=== PATIENT | female | born 1980 | race Caucasian/White ===

== ENCOUNTER 2023-03-31 02:03 | Emergency (ER) | payer MEDICARE, MEDICAID, SELFPAY ==
[2023-03-31 02:21] VITALS: BP 103/71; PULSE 127; RESP 18; TEMP 37.5; O2SAT 93; BMI 27.0
--- NOTE | 2023-03-31 02:23 | ED_ITS ---
HPI - General Adult General Chief complaint: Headache Stated complaint: sob covid Time Seen by Provider: 03/31/23 02:18 History of Present Illness HPI narrative: past history of Hodgkins. She tested positive for COVID19 2-3 days ago. Associated with fever and headache. Started on Molnupiravir yesterday. Tonight wheezy . No headache at this time but does comes and go and has pressure behind her eyes. No abdominal pain Related Data Home Medications Medication Instructions Recorded Confirmed azelastine 137 mcg (0.1 %) nasal intranasal 03/31/23 spray aerosol fluticasone furoate 100 inhalation 03/31/23 mcg-vilanterol 25 mcg/dose inhalation powder (Breo Ellipta) ipratropium 0.5 mg-albuterol 3 mg ml inhalation 03/31/23 (2.5 mg base)/3 mL nebulization soln molnupiravir 200 mg capsule (EUA) mg PO 03/31/23 (Lagevrio) Allergies Allergy/AdvReac Type Severity Reaction Status Date / Time Sulfa (Sulfonamide AdvReac Mild Rash Verified 03/31/23 02:19 Antibiotics) Review of Systems ROS Status of ROS 10 or more systems reviewed and unremark able except as noted in history and below PFSH PFS Social History Smoking status: Never smoker Exam Constitutional Vital Signs, click to edit/add: Last Vital Signs Temp 99.5 F 03/31/23 02:21 Pulse 120 H 03/31/23 02:54 Resp 20 03/31/23 02:54 BP 103/71 03/31/23 02:21 Pulse Ox 93 L 03/31/23 02:54 O2 Del Method Room Air 03/31/23 02:54 Common normals: no apparent distress, average body habitus, oriented x3, no limitations, healthy appearing, alert and well nourished Eye Common normals: EOMs intact bilaterally and conjunctivae normal Respiratory Common normals: no retractions and no use of accessory muscles Other: mild wheeze Cardio Common normals: regular rate, regular rhythm, S1 normal heart sound and S2 normal heart sound GI Common normals: Normal to inspection, nondistended, normoactive bowel sounds present, soft to palpation and non-tender Extremity Common normals: normal to inspection and full ROM Neuro Common normals: oriented x3, CN's II-XII intact bilaterally, moves all extremities and no focal motor deficits Psych Appearance: grossly normal Course Vital Signs Vital signs: Vital Signs Temperature 99.5 F 03/31/23 02:21 Pulse Rate 127 H 03/31/23 02:21 Respiratory Rate 18 03/31/23 02:21 Blood Pressure 103/71 03/31/23 02:21 Pulse Oximetry 93 L 03/31/23 02:21 Oxygen Delivery Method Room Air 03/31/23 02:21 Temperature 99.5 F 03/31/23 02:21 Pulse Rate 120 H 03/31/23 02:54 Respiratory Rate 20 03/31/23 02:54 Blood Pressure 103/71 03/31/23 02:21 Pulse Oximetry 93 L 03/31/23 02:54 Oxygen Delivery Method Room Air 03/31/23 02:54 Medical Decision Making MDM Narrative Medical decision making narrative: patient presents with a viral illness presentation of cough, bronchospasm and headache. States home test was positive for COVID19 and she was started on antiviral by her PCP. she points to the area anterior to her left ear as the site of her pain. Describes acute sharp pain that comes and goes. Site is non tender. No temporal artery tenderness. covid19 and influenza testing neg in the department. CT brain and sinus/face neg. Inflammatory markers elevated and she had mild wheezing on admission that resolved after solumedrol and albuterol inhaler. Magnesium given and the headache was more tolerable. She was also given dose of Tegretol prior to discharge. Cxray with mild cardiomegaly. no infiltrates.Troponin and BNP neg. D- dimer also neg. discharged home with a prescription for Tegretol and an albuterol inhaler and advised to d/c her antiviral and follow up with her doctor Lab Data Labs: Lab Results 03/31/23 03/31/23 Range/Units 02:34 03:10 WBC 8.8 (4.0-11.0) 10^3/uL RBC 4.88 (4.20-5.40) 10^6/uL Hgb 15.5 (12.0-16.0) g/dL Hct 45.9 (36.0-48.0) % MCV 94.1 (81.0-99.0) fL MCH 31.8 (26.7-34.0) pg MCHC 33.8 (29.9-35.2) g/dL RDW 13.1 (11.0-15.0) % Plt Count 241 (150-450) 10^3/uL MPV 9.1 L (9.5-13.5) fL Neut % (Auto) 73.5 (43.0-75.0) % Lymph % (Auto) 12.8 L (20.5-60.0) % Murray % (Auto) 12.7 H (1.7-12.0) % Eos % (Auto) 0.5 L (0.9-7.0) % Baso % (Auto) 0.3 (0.2-2.0) % Neut # (Auto) 6.5 (1.4-6.5) 10^3/uL Lymph # (Auto) 1.1 L (1.2-3.8) 10^3/uL Murray # (Auto) 1.1 H (0.3-0.8) 10^3/uL Eos # (Auto) 0.0 (0.0-0.7) 10^3/uL Baso # (Auto) 0.0 (0.0-0.1) 10^3/uL Abs Immat Gran (auto) 0.02 (0.00-0.03) 10^3/uL Imm/Tot Granulo (auto) 0.2 (0.0-0.5) % ESR 33 H (<=20) mm/hr D-Dimer 0.24 (<=0.59) mg/L FEU Lactate 1.1 (0.4-2.0) mmol/L Troponin I High Sens 12.8 (4.0-51.3) pg/mL C-Reactive Protein 2.89 H (<=0.50) mg/dL NT-Pro-B Natriuret Pep 215.0 (<=450.0) pg/mL Influenza Type A Ag Negative Influenza Type B Ag Negative SARS-CoV-2 Ag (CV2AG) Negative (NEGATIVE) Discharge Plan Discharge Chief Complaint: Headache Clinical Impression: Acute viral syndrome, [place] (trigeminal neuralgia) Patient Disposition: Home, Self-Care Prescriptions / Home Meds: No Action azelastine 137 mcg (0.1 %) aerosol,spray INTRANASAL Lagevrio (EUA) 200 mg capsule PO ipratropium-albuterol 0.5 mg-3 mg(2.5 mg base)/3 mL solution for nebulization INHALATION fluticasone furoate-vilanterol [Breo Ellipta] 100-25 mcg/dose blister with device INHALATION Instructions: Trigeminal Neuralgia (ED), Viral Syndrome (ED) Additional Instructions: follow up with your doctor in 2-3 days for recheck Stand Alone Forms: Portal Instructions Referrals: Physician,Non-Staff, MD [Primary Care Provider] - 1 week
--- NOTE | 2023-03-31 02:25 | XR_ITS ---
The [address] [address] Patient Name: CELSO POTTS MRN: [id number] date: 1980 Sex: F Assigned Patient Location: ER Current Patient Location: ER Accession/Order Number: [id number] Exam Date: 03/31/2023 02:45 Report Date: 03/31/2023 03:58 At the request of: IGLESIA BLAKELY Procedure: XR chest 1V CLINICAL HISTORY: Short of breath COMPARISON: None FINDINGS: Portable AP view of the chest obtained. Cardiomediastinal silhouette is enlarged. Lungs are clear, no evidence of infiltrate, suspicious nodule, or mass. No evidence of significant pleural fluid on this portable projection. No acute bony abnormality. XR/XR chest 1V IMPRESSION: Cardiomegaly noted. Lungs are clear. Electronically authenticated by: RADHA SWEET Date: 03/31/2023 03:58
--- NOTE | 2023-03-31 02:27 | CT_ITS ---
The [address] [address] Patient Name: CELSO POTTS MRN: [id number] date: 1980 Sex: F Assigned Patient Location: ER Current Patient Location: ER Accession/Order Number: [id number] Exam Date: 03/31/2023 02:45 Report Date: 03/31/2023 03:57 At the request of: IGLESIA BLAKELY Procedure: CT head/brain wo con NONCONTRAST HEAD/FACIAL BONE CT COMPARISON: Head CT 06/21/2022. CLINICAL HISTORY: Headache and sinus pressure. TECHNIQUE: Routine noncontrast images of the brain obtained. CT examination of the head without IV contrast. Dose reduction techniques were achieved by using: automated exposure control and/or adjustment of mA and /or kV according to patient size and/or use of iterative reconstruction technique. FINDINGS: Paranasal sinuses and mastoid air cells are clear. Small mucous retention cyst or polyp incidentally noted in the left maxillary sinus. Intraorbital contents are unremarkable. No acute bony abnormality. Mandible and temporomandibular joints are properly aligned. Intracranially, there is no evidence of hemorrhage, mass effect, or midline shift. Ventricles and cisternal spaces are age appropriate. CT/CT head/brain wo con IMPRESSION: No acute intracranial abnormality. Sinuses are clear. Electronically authenticated by: RADHA SWEET Date: 03/31/2023 03:57
--- NOTE | 2023-03-31 02:27 | CT_ITS ---
The [address] [address] Patient Name: CELSO POTTS MRN: [id number] date: 1980 Sex: F Assigned Patient Location: ER Current Patient Location: ER Accession/Order Number: [id number] Exam Date: 03/31/2023 02:45 Report Date: 03/31/2023 03:57 At the request of: IGLESIA BLAKELY Procedure: CT facial bones wo con NONCONTRAST HEAD/FACIAL BONE CT COMPARISON: Head CT 06/21/2022. CLINICAL HISTORY: Headache and sinus pressure. TECHNIQUE: Routine noncontrast images of the brain obtained. CT examination of the head without IV contrast. Dose reduction techniques were achieved by using: automated exposure control and/or adjustment of mA and /or kV according to patient size and/or use of iterative reconstruction technique. FINDINGS: Paranasal sinuses and mastoid air cells are clear. Small mucous retention cyst or polyp incidentally noted in the left maxillary sinus. Intraorbital contents are unremarkable. No acute bony abnormality. Mandible and temporomandibular joints are properly aligned. Intracranially, there is no evidence of hemorrhage, mass effect, or midline shift. Ventricles and cisternal spaces are age appropriate. CT/CT facial bones wo con IMPRESSION: No acute intracranial abnormality. Sinuses are clear. Electronically authenticated by: RADHA SWEET Date: 03/31/2023 03:57
[2023-03-31 02:41] LABS: Basophils Percent Auto 0.3 % (0.2-2.0); Eosinophils Percent Auto 0.5 % (0.9-7.0); Hematocrit 45.9 % (36.0-48.0); Hemoglobin 15.5 g/dL (12.0-16.0); Immature Granulocytes Abs Auto 0.02 10^3/uL (0.00-0.03); Immature Granulocytes Pct Auto 0.2 % (0.0-0.5); Lymphocytes Absolute Auto 1.1 10^3/uL (1.2-3.8); Lymphocytes Percent Auto 12.8 % (20.5-60.0); Mean Corpuscular HGB Conc 33.8 g/dL (29.9-35.2); Mean Corpuscular Hemoglobin 31.8 pg (26.7-34.0); Mean Corpuscular Volume 94.1 fL (81.0-99.0); Mean Platelet Volume 9.1 fL (9.5-13.5); Monocytes Absolute Auto 1.1 10^3/uL (0.3-0.8); Monocytes Percent Auto 12.7 % (1.7-12.0); Neutrophils Absolute Auto 6.5 10^3/uL (1.4-6.5); Neutrophils Percent Auto 73.5 % (43.0-75.0); Platelet Count 241 10^3/uL (150-450); Red Blood Count 4.88 10^6/uL (4.20-5.40); Red Cell Distribution Width 13.1 % (11.0-15.0); White Blood Count 8.8 10^3/uL (4.0-11.0)
[2023-03-31 02:43] VITALS: O2SAT 93
[2023-03-31 02:54] VITALS: PULSE 120; RESP 20; O2SAT 93
[2023-03-31] MEDS: ALBUTEROL SULFATE 2.5 MG/3 ML VIAL NEB IH (02:54)
[2023-03-31] MEDS: METHYLPREDNISOLONE SOD SUCC PF 125 MG/2 ML VIAL IVP (03:04)
[2023-03-31 03:05] LABS: Erythrocyte Sedimentation Rate 33 mm/hr (<=20)
[2023-03-31 03:12] LABS: D Dimer 0.24 mg/L FEU (<=0.59)
[2023-03-31 03:29] LABS: Lactate/Lactic Acid 1.1 mmol/L (0.4-2.0); Troponin I High Sensitivity 12.8 pg/mL (4.0-51.3)
[2023-03-31 04:16] LABS: Influenza Virus A Antigen Negative; Influenza Virus B Antigen Negative; Internal Control Within Normal Limits; SARS-CoV-2 Ag NEGATIVE (NEGATIVE)
[2023-03-31] MEDS: MAGNESIUM SULFATE IN WATER 2 GM/50 ML PREMIX IV (04:38)
[2023-03-31 05:01] LABS: C Reactive Protein 2.89 mg/dL (<=0.50)
[2023-03-31] MEDS: 0.9 % SODIUM CHLORIDE 1,000 ML 1000 ML IV (05:10)
[2023-03-31 07:03] VITALS: BP 109/69; PULSE 116; RESP 18; O2SAT 94
[2023-03-31 14:26] LABS: SARS-CoV-2 NAA NOT DETECTED (NOT DETECTE)
== END 2023-03-31 07:11 | disposition home or self-care (01) ==
PROVIDERS: Emergency Provider Internal Medicine
DX: B34.9 Viral infection, unspecified (principal); G50.0 Trigeminal neuralgia; Z20.822 Contact with and (suspected) exposure to COVID-19; Z85.71 Personal history of Hodgkin lymphoma; R06.02 Shortness of breath
CPT/HCPCS: 36415; 70450; 70486; 71045; 83605; 83880; 84484; 85025; 85378; 85652; 86140; 87635; 87804; 87811; 94640; 96365; 96366; 96375; 99285; J2930; J3475

== ENCOUNTER 2023-04-02 02:32 | Observation (INO) | payer MEDICARE, MEDICAID, SELFPAY ==
[2023-04-02] VITALS (49 sets, daily range): BP systolic 87–118; BP diastolic 57–78; PULSE 102–135; RESP 18–20; TEMP 37.3–39.1; O2SAT 69–100; BMI 31.3
--- NOTE | 2023-04-02 02:43 | XR_ITS ---
The [place] [id number] Patient Name: CELSO POTTS MRN: [id number] date: 1980 Sex: F Assigned Patient Location: ER Current Patient Location: ER Accession/Order Number: [id number] Exam Date: 04/02/2023 03:07 Report Date: 04/02/2023 03:36 At the request of: IGLESIA BLAKELY Procedure: XR chest 2V EXAM: XR chest 2V HISTORY: cough COMPARISON: Chest radiograph dated 03/31/2023. TECHNIQUE: 2 views of the chest were obtained. FINDINGS: The cardiac silhouette is stable in size. There are airspace opacities in the medial lungs. There is no significant pneumothorax or pleural effusion. No acute osseous abnormality is seen. XR/XR chest 2V IMPRESSION: 1. Airspace opacities in the medial lungs could represent aspiration changes and/or pneumonia. Electronically authenticated by: Karol HUERTA Date: 04/02/2023 03:36
[2023-04-02 02:45] LABS: Adenovirus NOT DETECTED (NOT DETECTE); Bordetella parapertussis NOT DETECTED (NOT DETECTE); Coronavirus 229E NOT DETECTED (NOT DETECTE); Coronavirus HKU1 NOT DETECTED (NOT DETECTE); Coronavirus NL63 NOT DETECTED (NOT DETECTE); Coronavirus OC43 NOT DETECTED (NOT DETECTE); Human Metapneumovirus NOT DETECTED (NOT DETECTE); Human Rhinovirus/Enterovirus NOT DETECTED (NOT DETECTE); Influenza B NOT DETECTED (NOT DETECTE); Mycoplasma pneumoniae NOT DETECTED (NOT DETECTE); Parainfluenza Virus 1 NOT DETECTED (NOT DETECTE); Parainfluenza Virus 2 NOT DETECTED (NOT DETECTE); Parainfluenza Virus 3 NOT DETECTED (NOT DETECTE); Parainfluenza Virus 4 NOT DETECTED (NOT DETECTE); Respiratory Syncytial Virus NOT DETECTED (NOT DETECTE); SARS-CoV-2 NOT DETECTED (NOT DETECTE)
--- OUTSIDE RECORDS SUMMARY | 2023-04-02 02:51 | XMS_ITS | CCD ---
Author Name Unknown Address [address] [place] [address] Organization [facility] Care Team Providers Care Carpenters Supervisor Name Role Phone Mary RODRIGUEZ, Abdo Unavailable Genna RODRIGUEZ, Jose A Primary Care Provider Marilyn Hughes RN Unavailable Mary RODRIGUEZ, Abdo Unavailable Juan R WALL, Kristina Unavailable Unavailable Emely PHOTOTYPESETTER OPERATOR.Juan Francisco VASQUEZ Unavailable Kylie Johnson Unavailable Mary RODRIGUEZ, Abdo Unavailable Genna RODRIGUEZ, Jose A Primary Care Provider Marilyn Hughes RN Unavailable Mary RODRIGUEZ, Abdo Unavailable Juan R WALL, Kristina Unavailable Unavailable Emely PHOTOTYPESETTER OPERATOR.Juan Francisco VASQUEZ Unavailable Kylie Mosher RN Unavailable Unavail able Genna RODRIGUEZ, Jose A Primary Care Provider Mary RODRIGUEZ, Abdo Unavailable Genna RODRIGUEZ, Jose A Primary Care Provider Marilyn Hughes RN Unavailable Mary RODRIGUEZ, Abdo Unavailable Juan R WALL, Kristina Unavailable Unavailable Emely PHOTOTYPESETTER OPERATOR.Juan Francisco VASQUEZ Unavailable Kylie Mosher RN Unavailable Unavail able DR MARIELENA CHAVIRA Primary Care Unavailable IGLESIA BLAKELY Admitting Unavailable IGLESIA BLAKELY Attending Unavailable LULU BLAKELYYL Consulting Unavailable CONG ALMANZAR Consulting Unavailable [facility] [place], DR PEGUERO Primary Care Unavailable PAY ., DR PARHAM Admitting Unavailable PAY ., DR PARHAM Attending Unavailable BITA ., ZAIRA Consulting Unavailable Emely PHOTOTYPESETTER OPERATOR.CLINICAL TRIAL DATA MANAGER, Juan Francisco Unavailable [phone] Juan R WALL, Kristina Unavailable Unavailable Emely PHOTOTYPESETTER OPERATOR.CLINICAL TRIAL DATA MANAGER, Juan Francisco Unavailable [phone] Nomi WALL, Kylie Patel Unavailable Unavail able JUAN FRANCISCO HUTCHINSON Attending Unavailable VAIL, JOSE A Primary Care Unavailable JUAN FRANCISCO HUTCHINSON Attending Unavailable VAIL, JOSE A Primary Care Unavailable VAIL, JOSE A Primary Care Unavailable JUAN FRANCISCO HUTCHINSON Referring Unavailable Mary RODRIGUEZ, Abdo Unavailable Glenys Vail MDecca A Primary Care Provider Mary RODRIGUEZ, Abdo Unavailable Keke Bright Unavailable MD Glenys Vailecca A Primary Care Provider OSCAR Bright Attending Provider Genna RODRIGUEZ Jose A Primary Care Provider [phone] Darien RODRIGUEZ, Alexsander Pacheco Unavailable [phone] [place] PHOTOTYPESETTER OPERATOR.CLINICAL TRIAL DATA MANAGER, Linette Unavailable Krishna PHOTOTYPESETTER OPERATOR.CLINICAL TRIAL DATA MANAGER, Linette Unavailable Alex GODWIN, Fabiana Unavailable Unavailable Keke Bright Attending Unavailable Keke Bright Admitting Unavailable Vail, Jose A Primary Care Unavailable VAIL, JOSE A Primary Care Unavailable ROCIO, ELLA Referring Unavailable VAIL, JOSE A Primary Care Unavailable ROCIO, ELLA Referring Unavailable VAIL, JOSE A Primary Care Unavailable JUAN FRANCISCO HUTCHINSON Referring Unavailable JUAN FRANCISCO HUTCHINSON Attending Unavailable VAIL, JOSE A Primary Care Unavailable JUAN FRANCISCO HUTCHINSON Attending Unavailable VAIL, JOSE A Primary Care Unavailable JUAN FRANCISCO HUTCHINSON Attending Unavailable VAIL, JOSE A Primary Care Unavailable VAIL, JOSE A Primary Care Unavailable ESTRADA DEL VALLE Referring Unavailable GET, SHEDA Attending Unavailable VAIL, JOSE A Primary Care Unavailable ALEXSANDER LEDEZMA Referring Unavailable VAIL, JOSE A Primary Care Unavailable RAMIRES, ABDO Referring Unavailable VAIL, JOSE A Primary Care Unavailable JUAN FRANCISCO HUTCHINSON Referring Unavailable VAIL, JOSE A Primary Care Unavailable GET, ESTRADA Referring Unavailable GET, ESTRADA Attending Unavailable VAIL, JOSE A Primary Care Unavailable JUAN FRANCISCO HUTCHINSON Attending Unavailable RAMIRES, ABDO Referring Unavailable YULIANA, NOVA Referring Unavailable YULIANA, NOVA Attending Unavailable VAIL, JOSE A Primary Care Unavailable VAIL, JOSE A Primary Care Unavailable VAIL, JOSE A Referring Unavailable ROCIO, ELLA Attending Unavailable VAIL, JOSE A Primary Care Unavailable ALEXSANDER LEDEZMA Referring Unavailable ALEXSANDER LEDEZMA Attending Unavailable VAIL, JOSE A Primary Care Unavailable RAMIRES, ABDO Referring Unavailable VAIL, JOSE A Primary Care Unavailable GET, ESTRADA Attending Unavailable VAIL, JOSE A Primary Care Unavailable RAMIRES, ABDO Referring Unavailable VAIL, JOSE A Primary Care Unavailable KYLIE NUNES Attending Unavailable ROCIO, ELLA Referring Unavailable VAIL, JOSE A Primary Care Unavailable RAMIRES, ABDO Referring Unavailable VAIL, JOSE A Primary Care Unavailable RAMIRES, ABDO Referring Unavailable VAIL, JOSE A Primary Care Unavailable VAIL, JOSE A Referring Unavailable RAMIRES, ABDO Attending Unavailable VAIL, JOSE A Primary Care Unavailable RAMIRES, ABDO Referring Unavailable ALEXSANDER LEDEZMA Attending Unavailable VAIL, JOSE A Primary Care Unavailable JUAN FRANCISCO HUTCHINSON Attending Unavailable VAIL, JOSE A Primary Care Unavailable ALEXSANDER LEDEZMA Referring Unavailable VAIL, JOSE A Primary Care Unavailable ROCIO, ELLA Referring Unavailable VAIL, JOSE A Primary Care Unavailable ROCIO, ELLA Referring Unavailable VAIL, JOSE A Primary Care Unavailable RAMIRES, ABDO Referring Unavailable VAIL, JOSE A Primary Care Unavailable VAIL, JOSE A Referring Unavailable RAMIRES, ABDO Attending Unavailable MEHUL, SUMMER Attending Unavailable VAIL, JOSE A Primary Care Unavailable VAIL, JOSE A Referring Unavailable VAIL, JOSE A Primary Care Unavailable RAMIRES, ABDO Referring Unavailable RAMIRES, ABDO Attending Unavailable VAIL, JOSE A Primary Care Unavailable VAIL, JOSE A Referring Unavailable RAMIRES, ABDO Attending Unavailable VAIL, JOSE A Primary Care Unavailable GET, ESTRADA Attending Unavailable VAIL, JOSE A Primary Care Unavailable ALEXSANDER LEDEZMA Referring Unavailable VAIL, JOSE A Primary Care Unavailable RAMIRES, ABDO Referring Unavailable VAIL, JOSE A Primary Care Unavailable ESTRADA DEL VALLE Referring Unavailable BUTCH FLOOD Attending Unavailable VAIL, JOSE A Primary Care Unavailable VAIL, JOSE A Referring Unavailable ELLA CHAN Attending Unavailable VAIL, JOSE A Primary Care Unavailable RAMIRES, ABDO Referring Unavailable RAMIRES, ABDO Attending Unavailable SHEILA LIN Attending Unavailable LINETTE SKINNER Attending Unavailable LINETTE SKINNER Attending Unavailable VAIL, JOSE A Referring Unavailable Jose Vail MD Unavailable [phone] Jose Vail MD Primary Care Provider Allergies Allergy Classification Reported Allergen(s) Allergy Type Date of Onset Reaction(s) Facility (20 sources) Chlorhexidine; 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: [CHLORHEXIDINE] Drug Allergy 4 Itching, Unknown [facility] Work Phone: (20 sources) Sulfonamides (Antibiotic); 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: [SULFA (SULFONAMIDE ANTIBIOTICS)] Drug Allergy 2 Rash, Unknown [facility] Work Phone: (2 sources) Sulfacetamide / Sulfur Drug Allergy rash [facility] Other (1 source) Sulfonamides (Antibiotic) Drug allergy (disorder) [facility] Repository (1 source) Sulfacetamide Drug Allergy [address] [place] [address] Repository (1 source) Sulfur Drug Allergy [address] [place] [address] Repository Medications Current Medications Medication Drug Class(es) Dates Sig (Normalized) Sig (Original) amoxicillin 875 mg / clavulanate 125 mg oral tablet (1 source) Penicillin-class Antibacterial Start: 06-04-2022 End: 06-11-2022 take 1 tablet by mouth twice daily amoxicillin-clavulan ic acid (AUGMENTIN) 875-125 mg per tablet Indications: Abnormal CT of the chest Take 1 tablet by mouth twice daily for 7 days. 1 tablet 0 06/04/2022 06/11/2022 Active Comment on above: Take 1 tablet by jaleesa th twice daily for 7 days. bifidobacterium animalis [id number] unt / lactobacillus acidophilus [id number] unt oral capsule (2 sources) Start: 10-03-2021 Probiotic Product (Probiotic Daily) capsule 1 (one) time each day at the same time. 0 10/03/2021 Active cyclobenzaprine hydrochloride 10 mg oral tablet (20 sources) Muscle Relaxant Start: 12-03-2022 End: 05-06-2023 take 1 tablet by mouth three times daily as needed for muscle spasms cyclobenzaprine (FLEXERIL) 10 mg tablet Indications: Muscle cramps , Nodular sclerosing Hodgkin's lymphoma, unspecified body region (HCC) Take 1 tablet by mouth three times a day as needed for muscle spasm. 90 tablet 1 02/05/2023 05/06/2023 Active Start: 08-10-2022 End: 11-08-2022 take 1 tablet by mouth three times daily as needed for muscle spasms cyclobenzaprine (FLEXERIL) 10 mg tablet Indications: Muscle cramps , Nodular sclerosing Hodgkin's lymphoma, unspecified body region (HCC) Take 1 tablet by mouth three times daily as needed for muscle spasm. 90 tablet 2 08/10/2022 Active Start: 05-07-2022 End: 08-05-2022 take 1 tablet by mouth three times daily as needed for muscle spasms cyclobenzaprine (FLEXERIL) 10 mg tablet Indications: Muscle cramps , Nodular sclerosing Hodgkin's lymphoma, unspecified body region (HCC) Take 1 tablet by mouth three times daily as needed for muscle spasm. 90 tablet 2 05/07/2022 Active Start: 04-20-2021 End: 04-16-2022 take 1 tablet by mouth three times daily as needed cyclobenzaprine (FLEXERIL) 10 mg tablet Indications: Muscle cramps , Nodular sclerosing Hodgkin's lymphoma, unspecified body region (HCC) Take 1 tablet by mouth three times daily as needed. 90 tablet 0 04/16/2022 Active Comment on above: Take 1 tablet by jaleesa th three times daily as needed. Take 1 tablet by jaleesa th three times daily as needed for muscle spasm. Take 1 tablet by jaleesa th three times a day as needed for muscle spasm. 14 actuat fluticasone furoate 0.1 mg/actuat / vilanterol 0.025 mg/actuat dry powder inhaler (20 sources) Corticosteroid, beta2-Adrenergic Agonist Start: take 1 puff(s) by inhalation in the morning Fluticasone Furoate-Vilanterol (Breo Ellipta) 100-25 MCG/ACT aerosol powder Indications: Mild intermittent asthma without complication (CMS/HCC) , Restrictive lung disease Inhale 1 puff in the morning. 60 each 3 01/21/2023 Active Start: 09-13-2022 End: 01-01-2023 take 1 dose by inhalation once daily fluticasone-vilanterol (BREO ELLIPTA) 100-25 mcg/dose inhaler Inhale 1 Inhalation as instructed once daily. 1 Each 3 09/13/2022 01/01/2023 Discontinued Comment on above: Inhale 1 Inhalation as instructed once daily. gabapentin 300 mg oral capsule (20 sources) Anti-epileptic Agent Start: 12-31-2022 take 1 capsule by mouth in the morning, then take 1 capsule by mouth in the evening, then take 1 capsule by mouth at bedtime gabapentin (Neurontin) 300 MG capsule Indications: Nerve pain Take 1 capsule (300 mg) by mouth in the morning and 1 capsule (300 mg) in the evening and 1 capsule (300 mg) before bedtime. 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 180 capsule 2 12/20/2022 01/01/2023 Discontinued Gabapentin Activ e Comment on above: take 2 capsules by m outh three times a day Take 2 capsules by m outh three times daily for 180 days. Take 2 capsules by m outh three times a day for 90 days. ketoconazole 20 mg/ml topical cream (2 sources) Azole Antifungal Start: 12-27-20 22 ketoconazole (NIZOral) 2 % cream Apply 1 application topically 1 (one) time each day at the same time. 0 02/13/2022 Active molnupiravir 200 MG capsule (2 sources) Start: 03-29-19 End: 04-03-19 take 4 capsules by mouth in the morning molnupiravir 200 MG capsule Indications: COVID-19 Take 4 capsules (800 mg) by mouth in the morning and 4 capsules (800 mg) before bedtime. Do all this for 5 days. Follow instructions about contraceptive use during and after treatment (if of child-bearing potential). 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 Do not start before November 09, 2022. 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 Do not start before June 14, 2022. 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 Do not start before July 14, 2021. 120 tablet 0 07/14/2021 08/13/2021 Active oxyCODONE HCl No t-Taking/PRN Comment on above: Take 1 tablet by jaleesa th every 4 hours as needed (moderate- severe cancer pain) for up to 30 days. Do not start before April 19, 2021. Take 1 tablet by jaleesa th every 4 hours as needed (moderate-severe cancer pain) for up to 30 days. Take 1 tablet by jaleesa th every 4 hours as needed (moderate-severe cancer pain) for up to 30 days. Do not start before July 14, 2021. Take 1 tablet by jaleesa th every 4 hours as needed (moderate-severe cancer pain) for up to 30 days. Do not start before June 14, 2022. Take 1 tablet by jaleesa th every 4 hours as needed (moderate-severe cancer pain) for up to 30 days. Do not start before November 09, 2022. Take 1 tablet by jaleesa th every 6 hours as needed for pain for up to 30 days. perflutren lipid microspheres 1.3 mL in NaCl (PF) 0.9% 10 mL injection (DEFINITY) (20 sources) Start: 022 End: perflutren lipid microspheres 1.3 mL in NaCl (PF) 0.9% 10 mL injection (DEFINITY) phenazopyridine hydrochloride 200 mg oral tablet (1 source) Start: take 1 tablet by mouth every eight hours Pyridium 200 MG 1 tablet after meals Orally Three times a day for 2 day(s) Jan, Active pregabalin 100 mg oral capsule (10 sources) Start: 023 End: 023 take 1 capsule by mouth twice daily pregabalin (LYRICA) 100 mg capsule Indications: Palliative care by specialist , Nodular sclerosing Hodgkin's lymphoma, unspecified body region (HCC) , Cancer related pain Take 1 capsule by mouth twice daily for 90 days. 60 capsule 2 10/18/2022 01/16/2023 Active Comment on above: Take 1 capsule by mo [facility] twice daily for 90 days. traZODone hydrochloride 100 mg oral tablet (20 sources) Serotonin Reuptake Inhibitor Start: 023 traZODone (Desyrel) 100 MG tablet Indications: Insomnia, unspecified type Take 1 tablet (100 mg) by mouth as needed at bedtime for sleep 90 tablet 3 02/04/2023 Active take 2 tablets by mo [facility] once daily at bedtime traZODone (DESYREL) 50 mg tablet Take 10 0 mg by mouth daily at bedtime. 0 Active Comment on above: Take 100 mg by mouth daily at bedtime. triamcinolone acetonide 10 mg/ml injectable suspension (20 sources) Corticosteroid Start: 09-05-2021 End: 09-06-2021 triamcinolone acetonide 5 mg injection (KeNALog 10) Start: 07-28-2021 End: 07-28-2021 triamcinolone acetonide 10 m g injection (KeNALog 10) Start: 10-06-2019 triamcinolone acetonide (KENALOG) 0.1 % ointment APPLY TO THE AFFECTED AREA TWICE A DAY FOR 5 DAYS 0 10/06/2019 Active Comment on above: APPLY TO THE AFFECTE D AREA TWICE A DAY FOR 5 DAYS Completed/Discontinued Medications Medication Drug Class(es) Dates Sig (Normalized) Sig (Original) acetaminophen 325 mg oral tablet (20 sources) Start: 03-01-2014 take 325-650 mg by mouth every four hours as needed acetaminophen (TYLENOL) 325 mg tablet Take 1-2 tablets by mouth every 4 hours as needed (not to exceed 2000 mg in a 24 hour period). 0 03/01/2014 Active Comment on above: Take 1-2 tablets by mouth every 4 hours as needed (not to exceed 2000 mg in a 24 hour period). acyclovir 400 mg oral tablet (20 sources) Herpesvirus Nucleoside Analog DNA Polymerase Inhibitor, Herpes Simplex Virus Nucleoside Analog DNA Polymerase Inhibitor, Herpes Zoster Virus Nucleoside Analog DNA Polymerase Inhibitor Start: 06-05-2021 take 1 tablet by mouth twice daily acyclovir (ZOVIRAX) 400 mg tablet take 1 tablet by mouth twice a day 180 tablet 3 05/22/2022 Active Acyclovir Not-Ta quincy/PRN Comment on above: take 1 tablet by jaleesa twice a day [id number] actuat albuterol 0.09 mg/actuat metered dose inhaler (20 sources) beta2-Adrenergic Agonist Start: End: 3 take 2 puff(s) by inhalation every four hours as needed for wheezing albuterol HFA (VENTOLIN HFA) 90 mcg/actuation inhaler Indications: Restrictive lung disease , Simple chronic bronchitis (HCC) Inhale 2 Puffs as instructed every 4 hours as needed for wheezing/shortness of breath. 1 Each 5 06/30/2021 01/01/2023 Discontinued Start: 12-15-2020 End: 06-30-2021 take 2 puff(s) by mouth every six hours VENTOLIN HFA 90 mcg/actuation inhaler Indications: Restrictive lung disease inhale 2 puffs by mouth INTO THE LUNGS every 6 hours 1 Each 0 12/15/2020 06/30/2021 Discontinued Start: 11-06-2019 End: 06-15-2022 albuterol (PROVENTIL) 2.5 mg /3 mL (0.083 %) nebulizer solution inhale contents of 1 vial ( 3 milliliters ) in nebulizer by mouth... (REFER TO PRESCRIPTION NOTES). 0 11/06/2019 06/15/2022 Discontinued (Course of therapy completed) Comment on above: inhale contents of 1 vial ( 3 milliliters ) in nebulizer by mouth... (REFER TO PRESCRIPTION NOTES). inhale 2 puffs by mo uth INTO THE LUNGS every 6 hours Inhale 2 Puffs as in structed every 4 hours as needed for wheezing/shortness of breath. albuterol 0.833 mg/ml / ipratropium bromide 0.167 mg/ml inhalation solution (20 sources) Anticholinergic, beta2-Adrenergic Agonist Start: 06-16-19 23 take 3 mL by inhalation every six hours as needed for wheezing ipratropium-albute rol (DUONEB) 0.5 mg-3 mg(2.5 mg base)/3 mL nebu Indications: Dyspnea on exertion Inhale 3 mL as instructed every 6 hours as needed for wheezing/shortness of breath. 540 mL 1 06/15/2022 Active ipratropium-albu terol (Duo-Neb) 0.5-2.5 mg/3 mL nebulizer solution Take 3 mL by nebulization every 6 (six) hours 0 Active Comment on above: Inhale 3 mL as instr ucted every 6 hours as needed for wheezing/shortness of breath. amoxicillin 875 mg oral tablet (2 sources) Penicillin-class Antibacterial Start: 02-03-20 21 take 1 tablet by mouth every twelve hours Amoxicillin 875 MG 1 tablet Orally every 12 hrs for 7 days Jan, Not-Taking/PRN atenolol 50 mg oral tablet (20 sources) beta-Adrenergic Tyrone Start: 08-30-19 18 take 1 tablet by mouth twice daily atenolol (TENORMIN) 50 mg tablet Indications: Tachycardia take 1 tablet by mouth twice a day 60 tablet 1 08/29/2017 Active Atenolol Active Comment on above: take 1 tablet by jaleesa th twice a day azelastine hydrochloride 0.137 mg/actuat metered dose nasal spray (2 sources) Histamine-1 Receptor Antagonist Start: 03-28-19 24 take 1 spray(s) nasal route twice daily azelastine 0.1% nasal spray Use 1 [place] in each nostril two times a day. 30 mL 0 03/28/2023 Active Comment on above: Use 1 [place] in each nostril two times a day. azithromycin 250 mg oral tablet (16 sources) Macrolide Antimicrobial Start: 05-20-19 22 take 2 tablets by mouth once daily, then take 1 tablet by mouth once daily azithromycin (ZITHROMAX Z-RON) 250 mg tablet Indications: Sinus congestion , Nodular sclerosing Hodgkin's lymphoma, unspecified body region (HCC) Take two (2) tablets by mouth the first day and then one (1) tablet daily for 4 days. 6 tablet 0 05/19/2021 Active Comment on above: Take two (2) tablets by mouth the first day and then one (1) tablet daily for 4 days. baclofen 5 mg oral tablet (20 sources) gamma-Aminobutyric Acid-ergic Agonist Start: 10-31-19 22 End: 01-07-20 23 take 1 tablet by mouth three times daily baclofen 5 mg tablet Indications: Muscle cramps , Nodular sclerosis classical Hodgkin lymphoma (HCC) Take 1 tablet by mouth three times a day. 90 tablet 1 01/07/2023 Active Start: 07-31-2021 take 1 tablet by jaleesa th three times daily baclofen (LIORESAL) 5 mg tablet Indications: Muscle cramps , Nodular sclerosis classical Hodgkin lymphoma (HCC) take 1 tablet by mouth three times a day 90 tablet 2 07/31/2021 Active Start: 07-31-2021 take 1 tablet by jaleesa th twice daily baclofen (LIORESAL) 5 mg tablet Indications: Muscle cramps , Nodular sclerosis classical Hodgkin lymphoma (HCC) Take 1 tablet by mouth twice daily. 60 tablet 1 07/31/2021 Active Start: 04-12-2021 End: 2021 take 1 tablet by mouth three times daily baclofen (LIORESAL) 5 mg tablet Indications: Muscle cramps , Nodular sclerosis classical Hodgkin lymphoma (HCC) Take 1 tablet by mouth three times daily. 90 tablet 2 04/12/2021 2021 Active Comment on above: Take 1 tablet by jaleesa th three times daily. take 1 tablet by jaleesa th three times a day Take 1 tablet by jaleesa th twice daily. Take 1 tablet by jaleesa th three times a day. biotin 2.5 mg oral capsule (20 sources) Start: Biotin 2,500 mcg cap chlorhexidine gluconate 40 mg/ml medicated liquid soap (20 sources) Start: End: chlorhexidine (HIBICLENS) 4 % external liquid In groin as a wash 473 mL 11 12/06/2020 07/19/2022 Discontinued Comment on above: In groin as a wash CHOLECALCIFEROL, VITAMIN D3, (VITAMIN D3 ORAL) (20 sources) take 1000 [IU] by mouth once daily CHOLECALCIFEROL, VITAMIN D3, (VITAMIN D3 ORAL) Take 1,000 Units by mouth once daily. 0 Active Comment on above: Take 1,000 Units by mouth once daily. clindamycin 10 mg/ml topical lotion (20 sources) Lincosamide Antibacterial Start: 021 End: 023 Clindamycin Phosphate (CLEOCIN T) 1 % lotion To groin daily 60 mL 4 12/06/2020 04/23/2022 Discontinued Comment on above: To groin daily dexlansoprazole 30 mg delayed release oral capsule (20 sources) Proton Pump Inhibitor Start: 020 take 1 capsule by mouth once daily Dexlansoprazole (DEXILANT) 30 mg CpDM Take 1 capsule by mouth once daily. 60 capsule 6 07/20/2019 Active Dexilant Active Comment on above: Take 1 capsule by mo ut once daily. doxycycline monohydrate 100 mg oral capsule (20 sources) Tetracycline-clas s Drug Start: 07-26-2022 End: 09-13-2022 take 1 capsule by mouth twice daily doxycycline monohydrate (MONODOX) 100 mg capsule Take 1 capsule by mouth twice daily. 20 capsule 0 07/26/2022 09/13/2022 Discontinued Start: 06-04-2022 End: 06-11-2022 take 1 capsule by mouth twice daily doxycycline hyclate (VIBRAMYCIN) 100 mg capsule Indications: Abnormal CT of the chest Take 1 capsule by mouth twice daily for 7 days. 14 capsule 0 06/04/2022 06/11/2022 Active Start: 12-07-2021 End: 04-23-2022 take 1 capsule by mouth once daily doxycycline monohydrate (MONODOX) 100 mg capsule Indications: Acne vulgaris Take 1 capsule by mouth once daily. 90 capsule 0 12/07/2021 04/23/2022 Discontinued (Course of therapy completed) Comment on above: Take 1 capsule by mo ut once daily. Take 1 capsule by mo [facility] twice daily for 7 days. Take 1 capsule by mo ut twice daily. DULoxetine 30 mg delayed release oral capsule (4 sources) Serotonin and Norepinephrine Reuptake Inhibitor Start: 04-12-19 End: 05-18-19 take 1 capsule by mouth once daily for anxiety DULoxetine (CYMBALTA) 30 mg capsule Indications: Encounter for palliative care , Anxiety Take 1 capsule by mouth once daily. 30 capsule 1 04/12/2021 05/17/2021 Discontinued Comment on above: Take 1 capsule by mo [facility] once daily. fluocinonide 0.5 mg/ml topical cream (20 sources) Corticosteroid Start: 01-20-20 fluocinonide (LIDEX) 0.05 % cream apply to affected area ON THE RIGHT HAND and legs TWICE A DAY 120 g 2 01/19/2021 Active fluocinonide (Li dex) 0.05 % cream Apply 1 application topically in the morning and 1 application before bedtime. 0 Active Comment on above: apply to affected ar ea ON THE RIGHT HAND and legs TWICE A DAY fluticasone propionate 0.05 mg/actuat metered dose nasal spray (2 sources) Corticosteroid Start: 12-16-202 1 take 1 spray(s) nasal route once daily as needed Fluticasone Propionate 50 MCG/ACT 1 spray in each nostril Nasally Once a day for 30 day(s) Jan, Not-Taking/PRN Start: 02-02-2021 hydrocortisone 20 mg oral tablet (8 sources) Corticosteroid Start: 01-03-2023 take 1 tablet by mouth twice daily hydrocortisone (CORTEF) 20 mg tablet Take 1 tablet by mouth two times a day. 60 tablet 1 01/03/2023 Active Comment on above: Take 1 tablet by jaleesa two times a day. hydrOXYzine hydrochloride 25 mg oral tablet (20 sources) Antihistamine Start: 05-17-2021 End: 04-23-2022 take 1 tablet by mouth every eight hours as needed hydrOXYzine HCl (ATARAX) 25 mg tablet Take 1 tablet by mouth three times daily as needed. Prescribed by PCP 0 05/17/2021 04/23/2022 Discontinued Comment on above: Take 1 tablet by jaleesa three times daily as needed. Prescribed by PCP Lactobac no.41/Bifidobact no.7 (PROBIOTIC-10 ORAL) (20 sources) Lactobac no.41/Bifidobact no.7 (PROBIOTIC-10 ORAL) Take by mouth. 0 Active Comment on above: Take by mouth. levothyroxine sodium 0.075 mg oral tablet (20 sources) l-Thyroxine Start: 10-12-2019 End: 08-14-2023 take 1 tablet by mouth once daily levothyroxine (SYNTHROID) 75 mcg tablet Take 1 tablet by mouth once daily. 0 10/12/2019 Active Start: 05-09-2017 End: 05-17-2021 take 1 tablet by mouth once daily levothyroxine (SYNTHROID) 50 mcg tablet Indications: Acquired hypothyroidism Take 1 tablet by mouth once daily. 30 tablet 1 05/09/2017 05/17/2021 Discontinued Synthroid Active Comment on above: Take 1 tablet by jaleesa once daily. LORazepam 0.5 mg oral tablet (20 sources) Benzodiazepine Start: 3 take 1 tablet by mouth four times daily for anxiety LORazepam (ATIVAN) 0.5 mg take 1 tablet by mouth four times a day if needed for anxiety 0 12/11/2022 Active Start: 11-11-2022 End: 12-01-2022 take 1 tablet by mouth twice daily, then take 1-2 tablets by mouth at bedtime LORazepam (ATIVAN) 0.5 mg Indications: Nodular sclerosing Hodgkin's lymphoma, unspecified body region (HCC) , Neoplastic (malignant) related fatigue , Chemotherapy-induced neuropathy (HCC) take 1 tablet by mouth twice a day if needed and take 1 TO 2 TABLETS at bedtime if needed 120 tablet 0 11/11/2022 12/01/2022 Start: 10-09-2022 End: 11-01-2022 take 1 tablet by mouth twice daily, then take 1-2 tablets by mouth at bedtime LORazepam (ATIVAN) 0.5 mg Indications: Nodular sclerosing Hodgkin's lymphoma, unspecified body region (HCC) , Neoplastic (malignant) related fatigue , Chemotherapy-induced neuropathy (HCC) take 1 tablet by mouth twice a day if needed and take 1 TO 2 TABLETS at bedtime if needed 120 tablet 0 10/09/2022 11/01/2022 Active Start: 08-29-2022 End: 10-07-2022 take 1 tablet by mouth twice daily, then take 1-2 tablets by mouth at bedtime LORazepam (ATIVAN) 0.5 mg Indications: Nodular sclerosing Hodgkin's lymphoma, unspecified body region (HCC) , Neoplastic (malignant) related fatigue , Chemotherapy-induced neuropathy (HCC) take 1 tablet by mouth twice a day if needed and take 1 TO 2 TABLETS at bedtime if needed 120 tablet 0 09/06/2022 10/01/2022 Discontinued Start: 07-25-2022 End: 08-22-2022 take 1 tablet by mouth twice daily, then take 1-2 tablets by mouth at bedtime LORazepam (ATIVAN) 0.5 mg Indications: Nodular sclerosing Hodgkin's lymphoma, unspecified body region (HCC) , Neoplastic (malignant) related fatigue , Chemotherapy-induced neuropathy (HCC) take 1 tablet by mouth twice a day if needed and take 1 TO 2 at bedtime if needed 120 tablet 0 07/25/2022 08/22/2022 Start: 06-12-2022 End: 07-03-2022 take 1 tablet by mouth twice daily, then take 1-2 tablets by mouth at bedtime LORazepam (ATIVAN) 0.5 mg Indications: Nodular sclerosing Hodgkin's lymphoma, unspecified body region (HCC) , Neoplastic (malignant) related fatigue , Chemotherapy-induced neuropathy (HCC) take 1 tablet twice a day if needed and take 1 to 2 tablets by mouth at bedtime if needed 120 tablet 0 06/12/2022 07/03/2022 Active Start: 05-14-2022 End: 06-05-2022 take 1 tablet by mouth twice daily, then take 1-2 tablets by mouth at bedtime LORazepam (ATIVAN) 0.5 mg Indications: Nodular sclerosing Hodgkin's lymphoma, unspecified body region (HCC) , Neoplastic (malignant) related fatigue , Chemotherapy-induced neuropathy (HCC) take 1 tablet twice a day if needed and take 1 to 2 tablets by mouth at bedtime if needed 120 tablet 0 05/14/2022 06/05/2022 Active Start: 04-16-2022 End: 05-08-2022 take 1 tablet by mouth twice daily, then take 1-2 tablets by mouth at bedtime LORazepam (ATIVAN) 0.5 mg Indications: Nodular sclerosing Hodgkin's lymphoma, unspecified body region (HCC) , Neoplastic (malignant) related fatigue , Chemotherapy-induced neuropathy (HCC) take 1 tablet twice a day if needed and take 1 to 2 tablets by mouth at bedtime if needed 120 tablet 0 04/16/2022 05/08/2022 Active Start: 03-15-2022 End: 04-06-2022 take 1 tablet by mouth twice daily, then take 1-2 tablets by mouth at bedtime LORazepam (ATIVAN) 0.5 mg Indications: Nodular sclerosing Hodgkin's lymphoma, unspecified body region (HCC) , Neoplastic (malignant) related fatigue , Chemotherapy-induced neuropathy (HCC) take 1 tablet twice a day if needed and take 1 to 2 tablets by mouth at bedtime if needed 120 tablet 0 03/15/2022 04/06/2022 Active Start: 02-15-2022 End: 03-09-2022 take 1 tablet by mouth twice daily, then take 1-2 tablets by mouth at bedtime LORazepam (ATIVAN) 0.5 mg Indications: Nodular sclerosing Hodgkin's lymphoma, unspecified body region (HCC) , Neoplastic (malignant) related fatigue , Chemotherapy-induced neuropathy (HCC) take 1 tablet twice a day if needed and take 1 to 2 tablets by mouth at bedtime if needed 120 tablet 0 02/15/2022 03/09/2022 Active Start: 01-20-2022 End: 02-12-2022 take 1 tablet by mouth twice daily, then take 1-2 tablets by mouth at bedtime LORazepam (ATIVAN) 0.5 mg Indications: Nodular sclerosing Hodgkin's lymphoma, unspecified body region (HCC) , Neoplastic (malignant) related fatigue , Chemotherapy-induced neuropathy (HCC) take 1 tablet twice a day if needed and take 1 to 2 tablets by mouth at bedtime if needed 120 tablet 0 01/20/2022 02/12/2022 Active Start: 12-19-2021 End: 01-12-2022 take 1 tablet by mouth twice daily, then take 1-2 tablets by mouth at bedtime LORazepam (ATIVAN) 0.5 mg Indications: Nodular sclerosing Hodgkin's lymphoma, unspecified body region (HCC) , Neoplastic (malignant) related fatigue , Chemotherapy-induced neuropathy (HCC) take 1 tablet twice a day if needed and take 1 to 2 tablets by mouth at bedtime if needed 120 tablet 0 12/19/2021 01/12/2022 Active Start: 11-15-2021 End: 12-10-2021 take 1 tablet by mouth twice daily, then take 1-2 tablets by mouth at bedtime LORazepam (ATIVAN) 0.5 mg Indications: Nodular sclerosing Hodgkin's lymphoma, unspecified body region (HCC) , Neoplastic (malignant) related fatigue , Chemotherapy-induced neuropathy (HCC) take 1 tablet twice a day if needed and take 1 to 2 tablets by mouth at bedtime if needed 120 tablet 0 11/15/2021 12/10/2021 Active Start: 10-12-2021 End: 11-08-2021 take 1 tablet by mouth twice daily, then take 1-2 tablets by mouth at bedtime LORazepam (ATIVAN) 0.5 mg Indications: Nodular sclerosing Hodgkin's lymphoma, unspecified body region (HCC) , Neoplastic (malignant) related fatigue , Chemotherapy-induced neuropathy (HCC) take 1 tablet twice a day if needed and take 1 to 2 tablets by mouth at bedtime if needed 120 tablet 0 10/12/2021 11/08/2021 Active Start: 08-16-2021 End: 10-09-2021 take 1 tablet by mouth twice daily, then take 1-2 tablets by mouth at bedtime LORazepam (ATIVAN) 0.5 mg Indications: Nodular sclerosing Hodgkin's lymphoma, unspecified body region (HCC) , Neoplastic (malignant) related fatigue , Chemotherapy-induced neuropathy (HCC) take 1 tablet twice a day if needed and take 1 to 2 tablets by mouth at bedtime if needed 120 tablet 0 09/11/2021 10/09/2021 Active Start: 06-16-2021 End: 08-08-2021 take 1 tablet by mouth twice daily, then take 1-2 tablets by mouth at bedtime LORazepam (ATIVAN) 0.5 mg Indications: Nodular sclerosing Hodgkin's lymphoma, unspecified body region (HCC) , Neoplastic (malignant) related fatigue , Chemotherapy-induced neuropathy (HCC) take 1 tablet twice a day if needed and take 1 to 2 tablets by mouth at bedtime if needed 120 tablet 0 2021 08/08/2021 Active Start: 04-14-2021 End: 06-14-2021 take 1 tablet by mouth twice daily, then take 1-2 tablets by mouth at bedtime LORazepam (ATIVAN) 0.5 mg Indications: Nodular sclerosing Hodgkin's lymphoma, unspecified body region (HCC) , Neoplastic (malignant) related fatigue , Chemotherapy-induced neuropathy (HCC) take 1 tablet twice a day if needed and take 1 to 2 tablets by mouth at bedtime if needed 120 tablet 0 05/17/2021 06/14/2021 Active Ativan Active Comment on above: take 1 tablet twice a day if needed and take 1 to 2 tablets by mouth at bedtime if needed take 1 tablet by jaleesa th twice a day if needed and take 1 TO 2 at bedtime if needed take 1 tablet by jaleesa th twice a day if needed and take 1 TO 2 TABLETS at bedtime if needed take 1 tablet by jaleeas th four times a day if needed for anxiety methylPREDNISolone 4 mg oral tablet (2 sources) Corticosteroid Start: 2020 methylPREDNISolone 4 MG as directed Orally Once a day for 6 days Jan, Not-Taking/PRN mirtazapine 30 mg oral tablet (20 sources) Start: 2022 End: 2023 take 1 tablet by mouth once daily at bedtime mirtazapine (REMERON) 30 mg tablet Take 30 mg by mouth daily at bedtime. 0 05/22/2022 Active Remeron Active Comment on above: Take 30 mg by mouth daily at bedtime. molnupiravir 200 mg capsule (2 sources) Start: 12-05-2022 End: 01-01-2023 molnupiravir 200 mg capsule PLEASE SEE ATTACHED FOR DETAILED DIRECTIONS 0 12/05/2022 01/01/2023 Discontinued Start: 12-05-2022 molnupiravir 2 00 mg capsule PLEASE SEE ATTACHED FOR DETAILED DIRECTIONS 0 12/05/2022 Active Comment on above: PLEASE SEE ATTACHED FOR DETAILED DIRECTIONS naloxone hydrochloride 40 mg/ml nasal spray (20 sources) Opioid Antagonist Start: End: naloxone 4 mg/actuation nasal spray (NARCAN) Use 1 spray in one nostril as needed for overdose. May repeat every 2 to 3 min in alternating nostrils until medical assistance is available 1 Box 0 12/23/2019 Active Comment on above: Use 1 spray in one n ostril. May repeat every 2 to 3 minutes as needed in alternating nostrils until medical assistance becomes available. Use 1 spray in one n ostril as needed for overdose. May repeat every 2 to 3 min in alternating nostrils until medical assistance is available predniSONE 20 mg oral tablet (10 sources) Start: 023 End: take 2 tablets by mouth once daily predniSONE (DELTASONE) 20 mg tablet Indications: Abnormal CT of the chest Take 2 tablets by mouth once daily. 10 tablet 0 06/04/2022 07/19/2022 Discontinued Comment on above: Take 2 tablets by [facility] once daily. 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 take 1 tablet by jaleesa th every 6 hours if needed rivaroxaban 10 mg oral tablet (20 sources) Factor Xa Inhibitor Start: 12-14-2020 End: 11-13-2022 take 1 tablet by mouth once daily XARELTO 10 mg tablet Indications: History of pulmonary embolism take 1 tablet by mouth once daily 90 tablet 3 11/13/2022 Active take 1 tablet by mouth at mealti or rivaroxaban (Xarelto) 20 MG tablet Take 20 mg by mouth in the evening. Take with meals Take with food. 0 Active Xarelto Active Comment on above: Take 1 tablet by jaleesa th once daily. take 1 tablet by jaleesa th once daily sodium chloride 30 mg/ml inhalation solution (20 sources) Start: 08-01-2022 End: 08-31-2022 sodium chloride (NEBUSAL) 3 % nebulizer solution Indications: Productive cough Use 4 mL via nebulizer twice daily. 240 mL 0 08/01/2022 08/31/2022 Start: 12-27-2021 End: 03-28-2023 sodium chloride 0.9 % (flush ) 10 mL (BD POSIFLUSH) Comment on above: Use 4 mL via nebuliz er twice daily. 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 Do not start before March 12, 2021. 90 tablet 0 03/12/2021 05/17/2021 Discontinued Comment on above: Take 1 tablet by jaleesa three times daily as needed for up to 30 days. Do not start before March 12, 2021. 10 actuat tiotropium 0.0025 mg/actuat inhalation spray (20 sources) Anticholinergic Start: End: take 2 puff(s) by inhalation once daily SPIRIVA RESPIMAT 2.5 mcg/actuation inhaler Indications: Simple chronic bronchitis (HCC) INHALE 2 PUFFS DIRECTED ONCE DAILY 4 g 11 10/02/2021 07/19/2022 Discontinued Start: 04-12-2021 End: 10-02-2021 take 2 puff(s) by inhalation once daily tiotropium bromide (SPIRIVA RESPIMAT) 2.5 mcg/actuation inhaler Indications: Simple chronic bronchitis (HCC) Inhale 2 Puffs as instructed once daily. 1 Inhaler 5 04/12/2021 10/02/2021 Discontinued Comment on above: Inhale 2 Puffs as in structed once daily. INHALE 2 PUFFS DI RECTED ONCE DAILY tretinoin 0.5 mg/ml topical cream (20 sources) Retinoid Start: 12-07-2021 End: 12-07-2022 tretinoin (RETIN-A) 0.05 % cream Indications: Acne vulgaris Apply a pea size amount to affected area every other night for 2 weeks then increase to daily as tolerated 45 g 3 12/07/2021 Active Comment on above: Apply a pea size stefan unt to affected area every other night for 2 weeks then increase to daily as tolerated 7 actuat umeclidinium 0.0625 mg/actuat dry powder inhaler (20 sources) Anticholinergic Start: 12-18-2022 End: 01-01-2023 INCRUSE ELLIPTA 62.5 mcg/actuation inhaler Start: 11-19-2022 take 1 puff(s) by in halation once daily umeclidinium (INCRUSE ELLIPTA) 62.5 mcg/actuation inhaler Inhale 1 Puff as instructed once daily. 0 11/19/2022 Active Start: 05-15-2022 End: 09-13-2022 take 1 puff(s) by inhalation once daily INCRUSE ELLIPTA 62.5 mcg/actuation inhaler Inhale 1 Puff as instructed once daily. 0 05/15/2022 09/13/2022 Discontinued Comment on above: Inhale 1 Puff as ins tructed once daily. Vitamin B Comp and C No.3 (B COMPLEX PLUS VITAMIN C) 78-90-02-5-300 mg cap (20 sources) Start: 08-11-2019 Vitamin B Comp and C No.3 (B COMPLEX PLUS VITAMIN C) 57-44-80-5-300 mg cap Take 1 tablet by mouth once daily. 30 capsule 3 08/11/2019 Active Comment on above: Take 1 tablet by jaleesa th once daily. Problems Active Problems Problem Classification Problem Date Documented Da te Episodic/Chronic Anxiety disorders (5 sources) Anxiety; 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: [Anxiety disorder, unspecified] Onset: 2 Chronic Asthma (4 sources) Asthma; 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: [Unspecified asthma, uncomplicated] Onset: 3 08-13-2022 Chronic Chronic obstructive pulmonary disease and bronchiectasis (2 sources) Simple chronic bronchitis; 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: [Simple chronic bronchitis] Chronic Chronic obstructive pulmonary disease and bronchiectasis (6 sources) Bronchitis, not specified as acute or chronic; 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: [Bronchitis] Onset: 1 Resolved: 1 Episodic Esophageal disorders (2 sources) Gastroesophageal reflux disease; 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: [Gastro-esophageal reflux disease without esophagitis] Onset: 3 08-23-2022 Chronic Genitourinary symptoms and ill-defined conditions (2 sources) Dysuria; 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: [Dysuria] Onset: 3 Episodic Headache; including migraine (4 sources) Headache; including migraine; 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: [HEADACHE UNSPECIFIED] Onset: 3 Hodgkin`s disease (20 sources) Hodgkin's disease, nodular sclerosis (clinical); 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: [Nodular sclerosis Hodgkin lymphoma, unspecified site] Onset: 6 Chronic Maintenance chemotherapy; radiotherapy (6 sources) Patient encounter status; 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: [Encounter for antineoplastic immunotherapy] Chronic Malaise and fatigue (18 sources) Cancer-related fatigue; 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: [Neoplastic (malignant) related fatigue] Onset: 4 Episodic Menopausal disorders (20 sources) Premature menopause; 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: [Asymptomatic premature menopause] Onset: 7 09-05-2016 Chronic Mood disorders (2 sources) Mild major depression, single episode; 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: [Major depressive disorder, single episode, mild] Onset: 3 08-23-2022 Chronic Nausea and vomiting (6 sources) Nausea; 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: [Nausea] Episodic Nonspecific chest pain (1 source) Tight chest; 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: [Other chest pain] Episodic Nutritional deficiencies (2 sources) Vitamin D deficiency; 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: [Vitamin D deficiency, unspecified] Onset: 3 08-23-2022 Chronic Other aftercare (20 sources) Patient encounter status; 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: [Encounter for palliative care] Episodic Other aftercare (1 source) Other retirement (current) drug therapy; 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: [OTH LONGTERM CURRENT DRUG THERAPY] Onset: 3 Episodic Other aftercare (2 sources) Under care of palliative care physician; 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: [Encounter for palliative care] Episodic Other and unspecified benign neoplasm (1 source) Benign neoplasm of skin of lower limb; 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: [Other benign neoplasm of skin of left lower limb, including hip] Episodic Other connective tissue disease (20 sources) Cramp; 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: [Cramp and spasm] Episodic Other endocrine disorders (1 source) Adrenal cortical hypofunction; 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: [Unspecified adrenocortical insufficiency] 01-28-2023 Chronic Other gastrointestinal disorders (1 source) Dysphagia; 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: [Dysphagia, unspecified] 03-28-2023 Episodic Other inflammatory condition of skin (20 sources) Psoriasis vulgaris; 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: [Psoriasis vulgaris] Onset: 9 04-18-2018 Chronic Other inflammatory condition of skin (10 sources) Psoriatic arthritis; 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: [Arthropathic psoriasis, unspecified] Onset: 3 12-20-2022 Chronic Other inflammatory condition of skin (3 sources) Psoriasis; 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: [Psoriasis, unspecified] Onset: 3 01-01-2023 Chronic Other lower respiratory disease (3 sources) Dyspnea on exertion; 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: [Other forms of dyspnea] Episodic Other lower respiratory disease (8 sources) Chronic cough; 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: [Chronic cough] Onset: 4 Episodic Other lower respiratory disease (1 source) Productive cough ; 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: [Productive cough] Episodic Other lower respiratory disease (1 source) Abnormal findings on diagnostic imaging of lung; 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: [Other nonspecific abnormal finding of lung field] Episodic Other lower respiratory disease (1 source) Cough; 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: [Acute cough] 05-31-2022 Episodic Other nervous system disorders (20 sources) Neuropathy caused by chemical substance; 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: [Drug-induced polyneuropathy] Onset: 7 Chronic Other nervous system disorders (20 sources) Radiation injury of peripheral nerve; 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] Onset: 1 10-18-2020 Chronic Other nervous system disorders (20 sources) Pain due to neoplastic disease; 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: [Neoplasm related pain (acute) (chronic)] Chronic Other nervous system disorders (1 source) Neoplasm related pain (acute) (chronic); 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: [Cancer related pain] Onset: 2 Chronic Other nervous system disorders (1 source) Drug-induced polyneuropathy; 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)] Onset: 7 Chronic Other nutritional; endocrine; and metabolic disorders (20 sources) Body mass index 30+ - obesity; 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: [Body mass index (BMI) 33.0-33.9, adult] Onset: 0 12-25-2019 Chronic Other skin disorders (3 sources) Hidradenitis suppurativa; 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: [Hidradenitis suppurativa] Episodic Other skin disorders (3 sources) Pain; 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: [Disorder of the skin and subcutaneous tissue, unspecified] Episodic Other skin disorders (1 source) Acne vulgaris; 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: [Acne vulgaris] Episodic Other upper respiratory disease (1 source) Congestion of nasal sinus; 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: [Nasal congestion] Episodic Other upper respiratory infections (1 source) Posterior rhinorrhea; 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: [Postnasal drip] 03-28-2023 Episodic Phlebitis; thrombophlebitis and thromboembolism (1 source) H/O: Deep vein thrombosis; 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: [Personal history of other venous thrombosis and embolism] 01-01-2023 Episodic Residual codes; unclassified (20 sources) History of autologous bone marrow transplant; 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: [Bone marrow transplant status] Onset: 4 Chronic Residual codes; unclassified (1 source) Bone marrow transplant status; 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: [Autologous bone marrow transplantation status (HCC)] Onset: 1 Chronic Screening and history of mental health and substance abuse codes (1 source) Personal history of nicotine dependence; 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: [PERSONAL HISTORY OF NICOTINE DEPEND] Onset: 3 Episodic Thyroid disorders (3 sources) Acquired hypothyroidism; 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: [Hypothyroidism, unspecified] Onset: 3 01-01-2023 Chronic Unclassified (20 sources) SUMMARY Onset: 4 Unclassified (1 source) NO SHOW Unclassified (1 source) Acute cough; 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: [Acute cough] Onset: 3 Unclassified (1 source) Radiotherapy On-treatment Visit Onset: 3 Urinary tract infections (1 source) Acute cystitis without hematuria Episodic Viral infection (2 sources) Disease caused by 2019-nCoV; 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: [COVID-19] 03-29-2023 Episodic Past or Other Problems Problem Classification Problem Date Documented Date Episodic/Chronic Benign neoplasm of uterus (20 sources) Uterine leiomyoma; 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: [Leiomyoma of uterus, unspecified] Onset: 03-15-2017 03-15-2017 Episodic Cardiac dysrhythmias (2 sources) Tachycardia; 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: [Tachycardia, unspecified] Onset: 08-23-2022 08-23-2022 Episodic E Codes: Adverse effects of medical drugs (1 source) Adverse effect of antineoplastic and immunosuppressive drugs, initial encounter; 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)] Onset: 04-25-2016 Episodic Immunizations and screening for infectious disease (1 source) Contact with and (suspected) exposure to other viral communicable diseases Onset: 02-02-2021 Resolved: 02-02-2021 Episodic Other aftercare (14 sources) Drug therapy finding; 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: [senior living (current) use of opiate analgesic] Onset: 12-20-2022 Episodic Other aftercare (1 source) senior living (current) use of anticoagulants; 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: [SILVERER CURRNT USE ANTICOAGULANTS] Onset: 07-26-2021 Episodic Other aftercare (1 source) joint terminal attack controller (current) use of opiate analgesic; 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: [Opioid use agreement exists] Onset: 01-25-2022 Episodic Other aftercare (1 source) Encounter for palliative care; 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: [Encounter for palliative care] Onset: 10-26-2021 Episodic Other connective tissue disease (1 source) Cramp and spasm; 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: [Muscle cramps] Onset: 10-26-2021 Episodic Other inflammatory condition of skin (3 sources) Erythematous condition, unspecified; 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: [ERYTHEMATOUS CONDITION UNSPECIFIED] Onset: 07-24-2021 Episodic Other lower respiratory disease (20 sources) Restrictive lung disease; 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: [Other disorders of lung] Onset: 09-12-2015 09-12-2015 Episodic Other lower respiratory disease (1 source) Other disorders of lung; 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: [Restrictive lung disease] Onset: 09-12-2015 Episodic Other lower respiratory disease (1 source) Other nonspecific abnormal finding of lung field; 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: [Opacity of lung on imaging study] Onset: 07-17-2022 Episodic Other upper respiratory disease (3 sources) Hoarse; 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: [Dysphonia] Onset: 08-23-2022 03-28-2023 Episodic Otitis media and related conditions (1 source) Otitis media, unspecified, bilateral Onset: 02-02-2021 Resolved: 02-02-2021 Episodic Pulmonary heart disease (20 sources) Pulmonary embolism; 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: [Other pulmonary embolism without acute cor pulmonale] Onset: 05-27-2012 02-13-2021 Episodic Residual codes; unclassified (2 sources) Insomnia; 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: [Insomnia, unspecified] Onset: 08-23-2022 08-23-2022 Episodic Sexually transmitted infections (not HIV or hepatitis) (20 sources) Human papilloma virus deoxyribonucleic acid test positive, high risk on vaginal specimen; 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: [Vaginal high risk human papillomavirus (HPV) DNA test positive] Onset: 09-28-2014 09-28-2014 Episodic Skin and subcutaneous tissue infections (1 source) Cellulitis of left lower limb; 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: [CELLULITIS OF LEFT LOWER LIMB] Onset: 07-26-2021 Episodic Results Test Name Value Interpretation Reference Range Facility NITRIC OXIDE, EXHALEDon 02-0 [facility] Urinalysis - AUTOMATEDon Appearance (U) clear [employer] Other Bilirubin Ql (U) Negative [employer] Other Color (U) bright yellow [employer] Other Glucose Ql (U) Negative [employer] Other Hemoglobin Ql (U) Negative [employer] Other Ketones Ql (U) Negative [employer] Other Leukocyte esterase Test strip Ql (U) trace [employer] Other Nitrite Ql (U) Negative [employer] Other pH (U) 6.0 [pH] [employer] Other Protein Ql (U) Negative [employer] Other Specific gravity (U) [Rel density] 1.010 [employer] Other Urobilinogen (U) [Mass/Vol] 0.2 mg/dL [employer] Other Urinalysis - AUTOMATED [employer] Other Urine Cultureon 01-29-2023 Bacteria identified Cx Nom (U) Reason for Exam Dysuria Urine Reason for Exam: Dysuria : Urine ORGANISM: Escherichia coli (O:ESCCOL) [place] Count >100,000 Aerobic RICARDO Charge (NMIC56) -- SUSCEPTIBILITY - ORGANISM: O:ESCCOL ANTIBIOTIC INTERPRETATION RICARDO Amikacin S <16 Amoxacillin/K Clavulanate S <8 Ampicillin S <8 Ampicillin/Sulbactam S <4 Aztreonam S <4 Cefazolin S <2 Cefepime S <2 Ceftazidime S <1 Ceftazidime/Avibactam S <4 Ceftolozane/Tazobactam S <2 Ceftriaxone S <1 Cefuroxime S <4 Ciprofloxacin S <0.25 Ertapenem S <0.5 Gentamicin S <2 Levofloxacin S <0.5 Meropenem S <1 Meropenem/Vaborbactam S <2 Nitrofurantoin S <32 Piperacillin/Tazobactam S <8 Tetracycline S <4 Tigecycline S <2 Tobramycin S <2 Trimethoprim/Sulfametho xazole S <0.5 S = SUSCEPTIBLE I = INTERMEDIATE R = RESISTANT BLANK = DATA NOT AVAILABLE, OR DRUG NOT ADVISABLE OR TESTED R* = RESISTANCE DUE TO EXTENDED SPECTRUM BETA-LACTAMASES ESBL = EXTENDED SPECTRUM BETA-LACTAMASE TFG = THYMIDINE-DEPENDENT STRAIN OLINDA = BETA-LACTAMASE POSITIVE IB = INDUCIBLE BETA-LACTAMASE. APPEARS IN PLACE OF 'S' WITH SPECIES KNOWN TO POSSESS INDUCIBLE BETA-LACTAMASES. POTENTIALLY THEY MAY BECOME RESISTANT TO ALL B-LACTAM DRUGS. PERFORMED BY: [place] [address] PATHOLOGIST MACHINE I CUTTER MARGARITA HAYWOOD M.D. Normal [facility] Comment on above: Performed By: #### C UU #### [address] CORTISOL BLDon 01-02-2023 Cortisol [Mass/Vol] 1.6 ug/dL Low 4.8 - 19 .5 ug/dL [facility] ESR Westergren method (Bld) [Velocity]on 01-02-2023 ESR (Bld) [Velocity] 2 mm/h 0 - 20 mm/hr [facility] T4/FTI/T4Uon 01-02-2023 FTI 7.5 ug/dL 5.3 - 10.8 ug/dL [facility] T4 [Mass/Vol] 7.6 ug/dL 5.5 - 10.2 ug/dL [facility] T4 uptake [Mass/Vol] 1.01 0.91 - 1.19 [facility] TSH BLDon 01-02-2023 TSH Qn 1.820 m[IU]/L 0.270 - 4.200 mIU/L [facility] CBC W Auto Differential pane l (Bld)on 01-01-2023 Basophils (Bld) [#/Vol] <0.11 k/uL [facility] Basophils/100 WBC (Bld) 0.2 % [facility] Differential cell count method Nom (Bld) Auto [facility] Eosinophils (Bld) [#/Vol] 0.21 10*3/uL <0.46 k/uL [facility] Eosinophils/100 WBC (Bld) 2.6 % [facility] Erythrocyte distribution width (RBC) [Ratio] 13.8 % 11.5 - 15.0 % [facility] Hematocrit (Bld) [Volume fraction] 44.6 % 36.0 - 46.0 % [facility] Hemoglobin (Bld) [Mass/Vol] 14.6 g/dL 11.5 - 15.5 g/dL [facility] Immature granulocytes (Bld) [#/Vol] 0.08 10*3/uL <0.10 k/uL [facility] Immature granulocytes/100 WBC (Bld) 1.0 % [facility] Lymphocytes (Bld) [#/Vol] 2.56 10*3/uL 1.00 - 4.00 k/uL [facility] Lymphocytes/100 WBC (Bld) 32.0 % [facility] MCH (RBC) [Entitic mass] 31.1 pg 26.0 - 34.0 pg [facility] MCHC (RBC) [Mass/Vol] 32.7 g/dL 30.5 - 36.0 g/dL [facility] MCV (RBC) [Entitic vol] 94.9 fL 80.0 - 100.0 fL [facility] Monocytes (Bld) [#/Vol] 0.62 10*3/uL <0.87 k/uL [facility] Monocytes/100 WBC (Bld) 7.7 % [facility] Neutrophils (Bld) [#/Vol] 4.52 10*3/uL 1.45 - 7.50 k/uL [facility] Neutrophils/100 WBC (Bld) 56.5 % [facility] Nucleated RBC (Bld) [#/Vol] <0.01 k/uL [facility] Nucleated RBC/100 WBC (Bld) [Ratio] 0.0 /100 WBC [facility] Platelet mean volume (Bld) [Entitic vol] 9.0 fL 9.0 - 12.7 fL [facility] Platelets (Bld) [#/Vol] 320 10*3/uL 150 - 400 k/uL [facility] RBC (Bld) [#/Vol] 4.70 10*6/uL 3.90 - 5.2 0 m/uL [facility] WBC (Bld) [#/Vol] 8.01 10*3/uL 3.70 - 11. 00 k/uL [facility] Comprehensive metabolic 2000 panelon 01-01-2023 Albumin [Mass/Vol] 4.5 g/dL 3.9 - 4.9 g/dL [facility] ALP [Catalytic activity/Vol] 93 U/L 34 - 123 U/L [facility] ALT [Catalytic activity/Vol] 49 U/L High 7 - 38 U/L [facility] Anion gap [Moles/Vol] 9 mmol/L 9 - 18 mmol/L [facility] AST [Catalytic activity/Vol] 38 U/L High 13 - 35 U/L [facility] Bilirubin [Mass/Vol] 0.2 mg/dL 0.2 - 1.3 mg/dL [facility] Calcium [Mass/Vol] 9.6 mg/dL 8.5 - 10. 2 mg/dL [facility] Chloride [Moles/Vol] 102 mmol/L 97 - 105 mmol/L [facility] CO2 [Moles/Vol] 28 mmol/L 22 - 30 mmol/L [facility] Creatinine [Mass/Vol] 0.68 mg/dL 0.58 - 0.96 mg/dL [facility] Estimated Glomerular Filtration Rate 113 mL/min/1.73m >=60 mL/min/1.73m [facility] Glucose [Mass/Vol] 102 mg/dL High 74 - 99 mg/dL [facility] Potassium [Moles/Vol] 4.4 mmol/L 3.7 - 5.1 mmol/L [facility] Protein [Mass/Vol] 7.3 g/dL 6.3 - 8.0 g/dL [facility] Sodium [Moles/Vol] 139 mmol/L 136 - 144 mmol/L [facility] Urea nitrogen [Mass/Vol] 9 mg/dL 7 - 21 mg/dL [facility] LD LACTATE DEHYDROon 023 LDH [Catalytic activity/Vol] 283 U/L High 135 - 214 U/L [facility] MAGNESIUM BLDon 01-01-2023 Magnesium [Mass/Vol] 2.5 mg/dL High 1.7 - 2.3 mg/dL [facility] CNOVon 12-20-2022 CNOV Office Visit ([facility] ) CELSO POTTS ([id number]) 1980 F Date Time Provider Department 12/20/22 10:00 AM JUAN FRANCISCO HUTCHINSON During your visit today, we recorded the following information about you: Temperature Pulse Blood pressure Weight 97.9 degrees 103/minute 119/82 101.2 kg Juan Francisco Hutchinson APRN.CNP 12/20/2022 1:10 PM Signed PALLIATIVE MEDICINE PROGRESS NOTE SERVICE DATE: 12/20/2022 Primary Site of Disease/Medical Illness: Hodgkin Lymphoma CHIEF COMPLAINT: follow up PERTINENT MEDICAL HISTORY: Celso Potts is a 42 yo female with a history of psoriatic arthritis and Hodgkin's Lymphoma diagnosed 01/16/2012 s/p autologous SCT (2013) and several other treatments due to recurrences in that time. She has undergone palliative radiation to spleen, liver, and lymph nodes (April 2020) per Dr. Del Valle, then to right mesenteric LN (March 2022). Course has been c/b pulmonary embolus (on AC), PJP pneumonia, herpes zoster. She received treatment with Keytruda per Dr. Abimael Ramires (completed 05/01/22 - after 38 cycles). Imaging in July 2022 demonstrated a complete remission and is now under surveillance. Palliative care is following for symptom control needs. Subjective Last pall care visit 10/18/22 Did not tolerate lyrica trial Had Covid diagnosed a couple weeks ago. Has recovered completely - took antiviral from PCP Reports she has been doing ok. 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 The pain was very severe and feels as though something is tearing inside. This has improved some with time. Continues to have pain only when she is bending forward. Denies pain with deep breathing, no cough, no pain when laying down. No shortness of breath, dizziness Continues to have chest pain that has been chronic since her radiation treatments. This feels like a dried rubber band trying to stretch inside her chest which gets worse with more movement. Continues to experience muscle cramps/spasms on a regular basis and notes they are worse when she is more active. Involving her fingers most recently, have previously involved legs arms and back. Continues to take tizanidine and baclofen - has been taking on a more regular basis recently which she feels helps more. States she has never been given an explanation of these cramps. Saw rheumatology a while back and established the diagnosis of psoriatic arthritis. Does not think it was through the clinic. And states she did not follow up as [place] in [place] and not close to her home. Keeps well hydrated because dehydration has always made these symptoms worse. She is taking gabapentin 600 mg TID. Also taking oxycodone 10 mg 3-4 times per day Denies confusion, oversedation, myoclonus, constipation Fatigued but does not sleep during the day Going out with friends and keeping busy as much as she can Modified ESAS (D[place]port Symptom Assessment Scale) Information Provided By: Patient Pain: Mild Nausea: None Loss of Appetite: None Constipation: None Shortness of Breath: None Drowsiness: Not asked Tiredness: Moderate Depression: None Anxiety: Moderate How you feel overall: Good Objective ECOG PERFORMANCE STATUS: 0- Fully active, able to carry on all pre-disease performance w/o restriction. PHYSICAL EXAMINATION: Vital signs: BP 119/82 Pulse 103 Temp 36.6 ?C (97.9 ?F) (Oral) Wt 101.2 kg (223 lb 1.6 oz) LMP 11/18/2012 SpO2 96% BMI 31.12 kg/m? Last 1 Encounter Temp Readings: Date: Temp: Temp Src: 10/18/2022 36.8 ?C (98.2 ?F) Last 1 Encounter Resp Readings: Date: Resp: 09/13/2022 16 Last 1 Encounter Pulse Readings: Date: Pulse: 10/18/2022 96 Last 1 Encounter BP Readings: Date: BP: 10/18/2022 116/81 General Appearance: No apparent distress and well nourished Skin: No jaundice and No rash Lungs: unlabored effort, no conversational dyspnea CV: no lower extremity edema Musculoskeletal: No edema and No gross deformity Neuro: Alert and oriented to time place and person and no myoclonus Psych: Well groomed, Affect congruent with mood, and Good eye contact DATA: Diagnostic tests reviewed for today's visit: No new labs CrCl cannot be calculated (Patient's most recent lab result is older than the maximum 180 days allowed.). Opioid Management: Yes Indication for Opioid Prescribing: Chronic Non cancer pain ORT-OUD Score: 1 A score of 3 or higher may indicate a higher risk for future development of aberrant drug related behavior or opioid use disorder. Informed consent for chronic opiate therapy obtained and written pain agreement: On file Naloxone offered?: Previously prescribed Course of treatment, patient's response and adherence to the prescribed treatment plan reviewed, including non-pharmacological and non-opioid treatment modalities? Yes (more content not included)... [facility] ([facility]) CELSO POTTS ([id number]) 1980 F Date Time Provider Department 10/18/22 10:30 AM [facility] During your visit today, we recorded the following information about you: Zoila Pedersen RN 10/25/2022 2:14 PM Addendum INTRALESIONAL INJECTIONS (ILK) ___ NURSING ASSESSMENT: Is the patient having any pain? Yes PAIN EVALUATION 10/18/2022 1048 Pain Level: 1 Pain Location: Thigh-Left Description: Sore Duration Units: Weeks Frequency: Continuous Intervention/Comfort measure: Other: See comment Comments: washes with Dial antibacterial _ CLINICIAN: Patient ID verified with patient: Yes PATIENT ID VERIFIED BY: Full Name, Washes with Dial soap , allergic to Hibiclens - states clindamycin does not work Joined Facebook group , heard that Marco Antonio works if occluded under a band aid , states she has tried and it works 80% of time to bring lesion to a head. Would like to discuss lancing vs surgical removal of lesion as it has been injected previously. ILK helps to calm site for about 6 weeks at a time Procedure verified with patient: Yes Audible time-out documented: Yes INJECTION PROCEDURE: Hidradenitis suppurativa: Description: Firm and Erythematous Appearance: Not infected Location: left inner thigh Discussed R/B/O of medication including side effects. Patient agrees to proceed.Site cleansed with alcohol. Site injected with ILK as ordered. Total Kenalog 10mg/ml injected : 0.3 ml. Patient tolerated procedure well.. BandAid applied to injection site. Patient encouraged to use warm compresses daily. Left Inner Thigh ; Total injections: 1 FOLLOW UP: 6 weeks with provider Zoila Pedersen RN October 18, 2022 11:09 AM Zoila Pedersen RN 10/18/2022 11:10 AM Signed Use warm compresses to left inner thigh daily for comfort Referring Provider: JUAN FRANCISCO HUTCHINSON [[id number]] Allergies As of Date: 10/18/2022 Noted Allergy Reaction CHLORHEXIDINE 03/11/2013 9 - Itching Comments: Severe skin irritation. Had used for central line care SULFA (SULFONAMIDE ANTIBIOTICS) 01/07/2012 2 - Rash Date Reviewed: 10/18/2022 Reviewed by: Juan Francisco Hutchinson APRN.CLINICAL TRIAL DATA MANAGER - Fully Assessed Reason for Visit: LESION, SKIN [936] Primary Visit Diagnosis:Hidradenitis suppurativa [L73.2] Other Visit Diagnosis:Painful skin lesion [L98.9] Prescriptions as of 10/25/2022 - pregabalin (LYRICA) 100 mg capsule Take 1 capsule by mouth twice daily for 90 days. - LORazepam (ATIVAN) 0.5 mg take 1 tablet by mouth twice a day if needed and take 1 TO 2 TABLETS at bedtime if needed - oxyCODONE IR (ROXICODONE) 10 mg tab Take 1 tablet by mouth every 4 hours as needed (moderate-severe cancer pain) for up to 30 days. - baclofen 5 mg tablet Take 1 tablet by mouth three times daily. - fluticasone-vilanterol (BREO ELLIPTA) 100-25 mcg/dose inhaler Inhale 1 Inhalation as instructed once daily. - cyclobenzaprine (FLEXERIL) 10 mg tablet Take 1 tablet by mouth three times daily as needed for muscle spasm. - cyclobenzaprine (FLEXERIL) 10 mg tablet Take 1 tablet by mouth three times daily as needed for muscle spasm. - cyclobenzaprine (FLEXERIL) 10 mg tablet Take 1 tablet by mouth three times daily as needed for muscle spasm. - Biotin 2,500 mcg cap - mirtazapine (REMERON) 30 mg tablet Take 30 mg by mouth daily at bedtime. - ipratropium-albuterol (DUONEB) 0.5 mg-3 mg(2.5 mg base)/3 mL nebu Inhale 3 mL as instructed every 6 hours as needed for wheezing/shortness of breath. - acyclovir (ZOVIRAX) 400 mg tablet take 1 tablet by mouth twice a day - prochlorperazine (COMPAZINE) 10 mg tablet Take 1 tablet by mouth every 6 hours as needed. - tretinoin (RETIN-A) 0.05 % cream Apply a pea size amount to affected area every other night for 2 weeks then increase to daily as tolerated - XARELTO 10 mg tablet take 1 tablet by mouth once daily - albuterol HFA (VENTOLIN HFA) 90 mcg/actuation inhaler Inhale 2 Puffs as instructed every 4 hours as needed for wheezing/shortness of breath. - fluocinonide (LIDEX) 0.05 % cream apply to affected area ON THE RIGHT HAND and legs TWICE A DAY - naloxone 4 mg/actuation nasal spray (NARCAN) Use 1 spray in one nostril as needed for overdose. May repeat every 2 to 3 min in alternating nostrils until medical assistance is available - levothyroxine (SYNTHROID) 75 mcg tablet Take 1 tablet by mouth once daily. - triamcinolone acetonide (KENALOG) 0.1 % ointment APPLY TO THE AFFECTED AREA TWICE A DAY FOR 5 DAYS - traZODone (DESYREL) 50 mg tablet Take 100 mg by mouth daily at bedtime. - Vitamin B Comp and C No.3 (B COMPLEX PLUS VITAMIN C) 24-93-93-5-300 mg cap Take 1 tablet by mouth once daily. - Dexlansoprazol (more content not included)... Normal [facility] CNOVon 10-18-2022 CNOV Office Visit ([facility] ) CELSO POTTS ([id number]) 1980 F Date Time Provider Department 10/18/22 11:30 AM [facility] During your visit today, we recorded the following information about you: Temperature Pulse Blood pressure Weight 98.2 degrees 96/minute 116/81 102 kg Juan Francisco Hutchinson, PHOTOTYPESETTER OPERATOR.CLINICAL TRIAL DATA MANAGER 10/18/2022 3:27 PM Signed PALLIATIVE MEDICINE PROGRESS NOTE SERVICE DATE: 10/18/2022 Primary Site of Disease/Medical Illness: Hodgkin Lymphoma Site of Metastasis: Liver, Lymph nodes, Spleen CHIEF COMPLAINT: follow up on pain and muscle cramps. PERTINENT MEDICAL HISTORY: Celso Potts is a 42 yo female with Hodgkin's Lymphoma diagnosed 01/16/2012 s/p autologous SCT (2013) and several other treatments due to recurrences in that time. She has undergone palliative radiation to spleen, liver, and lymph nodes (April 2020) per Dr. Del Valle, then to right mesenteric LN (March 2022). She is currently treated with Keytruda per Dr. Abimael Ramires. Course has been c/b pulmonary embolus (on AC), PJP pneumonia, herpes zoster. Palliative care is following for symptom control needs. Subjective Last pall care visit 07/19/22 Feeling fairly well. Pulmonary changes have helped a lot with wheezing, SOB, cough, phlegm. Scan results showed CR. Patient remains anxious about recurrence as she doesn't feel she has ever had 2 concurrent stable scans in a row. She continues to always feels achy and very fatigued. Still having a lot of muscle cramps when she is very active such as raking the yard. - get cramps in her arms and hands that she has to pry open She remains Fully functional. Has hard time on the steps due to shortness of breath and joints are painful. Feels very fatigued after activity and has to take a lot of breaks. No new or worsening pains. States she hydrates well Had acupuncutre a couple years ago but not effective for symptoms. Continues to take gabapentin 600 mg tid, baclofen and flexeril, and oxycodone 4 tabs in a day. Denies confusion, oversedation, myoclonus, constipation. Modified ESAS ([place]port Symptom Assessment Scale) Information Provided By: Patient Pain: Moderate Nausea: None Loss of Appetite: None Constipation: None Shortness of Breath: Mild Drowsiness: None Tiredness: Moderate Depression: None Anxiety: Moderate How you feel overall: Good Objective ECOG PERFORMANCE STATUS: 1- Restricted in physically strenuous activity. Carries out light duty. PHYSICAL EXAMINATION: Vital signs: BP 116/81 Pulse 96 Temp 36.8 ?C (98.2 ?F) Wt 102 kg (224 lb 14.4 oz) LMP 11/18/2012 SpO2 96% BMI 31.37 kg/m? Last 1 Encounter Temp Readings: Date: Temp: Temp Src: 10/18/2022 36.8 ?C (98.2 ?F) Last 1 Encounter Resp Readings: Date: Resp: 09/13/2022 16 Last 1 Encounter Pulse Readings: Date: Pulse: 10/18/2022 96 Last 1 Encounter BP Readings: Date: BP: 10/18/2022 116/81 General Appearance: No apparent distress and well nourished Skin: No jaundice and No rash Lungs: unlabored effort, no conversational dyspnea Musculoskeletal: No edema and No gross deformity Neuro: Alert and oriented to time place and person and gait normal Psych: Well groomed, Affect congruent with mood, and Good eye contact DATA: Diagnostic tests reviewed for today's visit: Most recent labs and imaging results. Estimated Creatinine Clearance: 140.5 mL/min (based on SCr of 0.7 mg/dL). Opioid Management: Yes Indication for Opioid Prescribing: Chronic, Non-cancer pain ORT-OUD Score: 2 A score of 3 or higher may indicate a higher risk for future development of aberrant drug related behavior or opioid use disorder. Informed consent for chronic opiate therapy obtained and written pain agreement: On file Naloxone offered?: Previously prescribed Course of treatment, patient's response and adherence to the prescribed treatment plan reviewed, including non-pharmacological and non-opioid treatment modalities? Yes Have any complications or exacerbations of the underlying condition causing the pain been reviewed? Yes How much does pain impede patient?s ability to engage in work or other purposeful activities, interfere with your activities of daily living, physical activity, or quality of your family life and social activities? Significantly Aberrancies in pain panel? No Any aberrant drug related behaviors since last visit? No Rationale for continuing opioid treatment: Improved comfort and function based on an ongoing functional assessment Benefits of Opioid Therapy outweigh risks: Yes Prescribed Morphine Equivalent Daily Dose (MEDD): Yes > 50 MEDD Yes, I am certified in Hospice and Palliative Care, Hematology, Medical Oncology or Pain Medicine OARRS Checked: PDMP website checked and validated. All prescriptions have been APPROPRIATELY filled. No suspicious activity was identified. 10/18/2022 by (more content not included)... [facility] CELSO POTTS ([id number]) 1980 F Date Time Provider Department 10/18/22 KYLIE MOSHER [facility] During your visit today, we recorded the following information about you: Kylie Mosher RN 10/18/2022 3:19 PM Addendum Prior Authorization Documentation Prior authorization requested via [facility] for the following medication: Medication: Lyrica 100 mg capsules Approved and authorizes your coverage from 02/18/2022 - 02/17/2023, Insurance Company Name: [employer] Phone number: [phone] Patient ID number: [id number] Osorio [id number] Pharmacy Name: [facility] Telephone number: [phone] Kylie Mosher RN October 18, 2022 1:38 PM Allergies As of Date: 10/18/2022 Noted Allergy Reaction CHLORHEXIDINE 03/11/2013 9 - Itching Comments: Severe skin irritation. Had used for central line care SULFA (SULFONAMIDE ANTIBIOTICS) 01/07/2012 2 - Rash Date Reviewed: 10/18/2022 Reviewed by: Juan Francisco Hutchisnon APRN.CLINICAL TRIAL DATA MANAGER - Fully Assessed Reason for Visit: Insurance Authorization [[id number]] Prescriptions as of 10/18/2022 - pregabalin (LYRICA) 100 mg capsule Take 1 capsule by mouth twice daily for 90 days. - LORazepam (ATIVAN) 0.5 mg take 1 tablet by mouth twice a day if needed and take 1 TO 2 TABLETS at bedtime if needed - oxyCODONE IR (ROXICODONE) 10 mg tab Take 1 tablet by mouth every 4 hours as needed (moderate-severe cancer pain) for up to 30 days. - baclofen 5 mg tablet Take 1 tablet by mouth three times daily. - fluticasone-vilanterol (BREO ELLIPTA) 100-25 mcg/dose inhaler Inhale 1 Inhalation as instructed once daily. - cyclobenzaprine (FLEXERIL) 10 mg tablet Take 1 tablet by mouth three times daily as needed for muscle spasm. - cyclobenzaprine (FLEXERIL) 10 mg tablet Take 1 tablet by mouth three times daily as needed for muscle spasm. - cyclobenzaprine (FLEXERIL) 10 mg tablet Take 1 tablet by mouth three times daily as needed for muscle spasm. - Biotin 2,500 mcg cap - mirtazapine (REMERON) 30 mg tablet Take 30 mg by mouth daily at bedtime. - ipratropium-albuterol (DUONEB) 0.5 mg-3 mg(2.5 mg base)/3 mL nebu Inhale 3 mL as instructed every 6 hours as needed for wheezing/shortness of breath. - acyclovir (ZOVIRAX) 400 mg tablet take 1 tablet by mouth twice a day - prochlorperazine (COMPAZINE) 10 mg tablet Take 1 tablet by mouth every 6 hours as needed. - tretinoin (RETIN-A) 0.05 % cream Apply a pea size amount to affected area every other night for 2 weeks then increase to daily as tolerated - XARELTO 10 mg tablet take 1 tablet by mouth once daily - albuterol HFA (VENTOLIN HFA) 90 mcg/actuation inhaler Inhale 2 Puffs as instructed every 4 hours as needed for wheezing/shortness of breath. - fluocinonide (LIDEX) 0.05 % cream apply to affected area ON THE RIGHT HAND and legs TWICE A DAY - naloxone 4 mg/actuation nasal spray (NARCAN) Use 1 spray in one nostril as needed for overdose. May repeat every 2 to 3 min in alternating nostrils until medical assistance is available - levothyroxine (SYNTHROID) 75 mcg tablet Take 1 tablet by mouth once daily. - triamcinolone acetonide (KENALOG) 0.1 % ointment APPLY TO THE AFFECTED AREA TWICE A DAY FOR 5 DAYS - traZODone (DESYREL) 50 mg tablet Take 100 mg by mouth daily at bedtime. - Vitamin B Comp and C No.3 (B COMPLEX PLUS VITAMIN C) 36-60-81-5-300 mg cap Take 1 tablet by mouth once daily. - Dexlansoprazole (DEXILANT) 30 mg CpDM Take 1 capsule by mouth once daily. - Lactobac no.41/Bifidobact no.7 (PROBIOTIC-10 ORAL) Take by mouth. - atenolol (TENORMIN) 50 mg tablet take 1 tablet by mouth twice a day - CHOLECALCIFEROL, VITAMIN D3, (VITAMIN D3 ORAL) Take 1,000 Units by mouth once daily. - acetaminophen (TYLENOL) 325 mg tablet Take 1-2 tablets by mouth every 4 hours as needed (not to exceed 2000 mg in a 24 hour period). Facility-Administered Medications as of 10/18/2022 - perflutren lipid microspheres 1.3 mL in NaCl (PF) 0.9% 10 mL injection (DEFINITY) - sodium chloride 0.9 % (flush) 10 mL (BD POSIFLUSH) Meds Comments as of 04/02/2013: stop lovanox 24hours prior to surgery last Saturday11/01/12 -pt notes she is taking a control pill, unsure of name, states it changes everytime. states she will be off of it soon. Problem List As Of Date 10/18/2022 Noted Resolved Hodgkin's disease, unspecified [C81.90] 02/05/2012 05/11/2014 Pulmonary embolism (HCC) [I26.99] 05/27/2012 Hodgkin's disease with nodular sclerosis [C81.1*05/27/2012 12/26/2015 DISPOSITION AND FOLLOW-UP [V999.01] 10/27/2012 12/26/2015 Post-op pain [G89.18] 10/27/2012 12/26/2015 Electrolyte and fluid disorders not elsewhere c*02/16/2013 12/26/2015 Peripheral neuropathy [G62.9] 03/16/2013 12/26/2015 DVT prophylaxis [Z79.899] 03/16/2013 12/26/2015 SUMMARY [V999.95] 03/16/2013 Insomnia [G47.00] (more content not included)... 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 She has history of HL status post chemoradiation, Auto BMT In 2013, pulmonary embolism, PjP pneumonia, hypoxic respiratory failure in 2014 We had last met about 7 weeks ago when she was having significant cough and dyspnea issues. She had reported worsening in the respiratory symptoms in May 2022. Aggressive pulmonary toilet was advised, sputum check advised for micro work up, She was last Rx with antibiotic in July ( Doxycycline ) She was advised to get repeat PFT's and close follow up advised, Since the prior visit, her symptoms improved, she had no concerns of active infection. Sputum work up couldn't be done as she didn't have any expectoration to give the sample.. We discussed with oncology that it was ok to continue the immunotherapy. Today, she reports she has been doing well overall She has been using DUONEBS once daily that has helped immensely. She does have a chronic cough but no worsening over the past few months. She has chronic phlegm -mostly in the throat. She has chronic post nasal drip. She also has chronic exertional dyspnea which is also stable. She is on Incruze Ellipta - doesn't feel it helps Recently had PET/ CT scan and not on any chemotherapeutic agent REVIEW OF SYSTEMS GENERAL: No unintentional weight loss, Fatigue, or fever HEENT: Negative for frequent or significant headaches, No changes in hearing or vision, no nose bleeds or other nasal problems. + chronic post nasal drip RESPIRATORY: + improved cough and dyspnea CARDIOVASCULAR: Negative for chest pain, leg swelling or palpitations. PAST MEDICAL HISTORY Diagnosis Date ASCUS favor dysplasia 09/2014 for colpo Dyspareunia Fibroid 04/02/2017 Hodgkin lymphoma (HCC) 01/16/2012 stage IIIB, Nodular sclerosis classical Hodgkin lymphoma Menorrhagia 04/02/2017 PE (pulmonary embolism) Found incidentally on staging CT May 27, 2012 Pneumonitis 2013 Attributed to radiation and brentuximab vedotin Postmenopausal atrophic vaginitis Postmenopausal HRT (hormone replacement therapy) 08/2014 offered Premature menopause 01/2014 FSH 70 normal dxa Tachycardia on atenolol Vaginal high risk human papillomavirus (HPV) DNA test positive 09/28/2014 BP 121/87 Pulse 95 Resp 16 Wt 103.9 kg (229 lb) LMP 11/18/2012 SpO2 96% BMI 31.94 kg/m? PHYSICAL EXAM General appearance: well appearing, alert, in no acute distress Nose/Sinuses: Nares normal, septum midline, mucosa normal, no drainage or sinus tenderness Oropharynx: oropharynx normal, no thrush Respiratory: lungs clear to auscultation. No wheezing, rhonchi, rales unlabored on room air negative findings: no chest deformities noted Cardiovascular: RRR S1 normal, S2 normal DATA: I personally reviewed all data noted PFT: SPIROMETRY - BASELINE AND POST DILATOR ([id number]) - ordered on 11/03/19 [facility] [address] [address] [place] [address] Test Date: 2019-11-03 Pat Name: CELSO POTTS Department: Room: Gender: Female [employer]: Perla Baker DOB: 1980 Requested By: Order Number: [id number] Reading MD: Justin Moreno Interpretive Statements PRE AND POST BD JAE: ATS/ERS acceptability and repeatability standards for spirometry met. All lung volume repeatability criteria met. ATS acceptability and repeatability standards for DLCO met. DLCO is not hemoglobin corrected. Medications and Allergies were reviewed for possible drug interactions per policy. No contraindications or sensitivities were no caleb. Meds taken: Albuterol 17 hours before testing. 2 puffs albuterol (180 mcg) delivered by MDI via valved holding chamber, HRpre=99/min, HRpost= 98/min. //RK IMPRESSION: Spirometry shows no obstruction.The reduced FVC suggests restriction. The TLC is reduced indicating restriction. The diffusing capacity is moderately reduced. The diffusing capacity independent of alveolar volume (kCO), is normal. Electronically Signed On 11-05-2019 12:28:52 EDT by Justin Moreno Brandon LLN Pred ULN % Post % %Chg FVC L 2.43 3.77 4.72 5.70 51.5 2.40 50.8 -1.4 FEV1 L 2.02 3.07 3.84 4.59 52.7 2.07 53.9 2.4 FEV1/FVC % 83 71 82 91 101.3 86 105.2 3.9 PEF L/s 7.39 6.03 8.14 10.25 90.8 6.41 78.7 -13.3 FEF50% L/s 3.35 2.65 4.47 6.28 75.0 4.68 104.9 39.9 FIF50% L/s 5.21 5.27 1.1 FE%FIF % 64 89 38 .4 FIVC L 2.35 2.35 0.0 MWX96-82% L/s 2.36 2.36 3. (more content not included)... Normal [facility] CNOVSPon 08-22-2022 CNOVS Visit (SP) Office (HEMAVN) DORCASCELSO ROONEY ([id number]) 1980 F Date Time Provider Department 08/22/22 2:40 PM CYN RAMIRES During your visit today, we recorded the following information about you: Temperature Pulse Blood pressure 98.6 degrees 100/minute 105/74 Cyn Ramires MD 08/22/2022 3:08 PM Signed Diagnosis: Recurrent HL, initially Stage IIIb, Nodular sclerosis classical Hodgkin lymphoma diagnosed on 01/16/2012. (age at diagnosis 31YOF, ESR normal, WBC, Hgb, Lymph and alb normal) Previous Treatment: ABVD started on 02/11/2012 x 12 doses progressed to month after stopping treatment ICE x3 progressed after stopping treatment 3 cycles of Brentuximab Vedotin (Adcetris) followed by Auto BMT high-dose busulfan, etoposide, and cyclophosphamide with autologous hematopoietic progenitor cell transplantation in 02/2013 45 Gy in 25 fx was delivered to the mediastinal/hilar/left SC faustina regions using 6 MV photons from 07/27/2013 ? 08/31/2013. Brentuximab Vedotin (Adcetris) Started 02/04/2014 stopped to neuropathy Nivolumab (Opdivo) started Nov 18 2014 stopped early 2019 Ibrutinib started early 2019. Ordered April 22, 2019 stopped oct AREA TREATED: right mesenteric LN COURSE: definitive CURRENT DOSE: 2400 cGy in 03 fx PLANNED DOSE: 2400 cGy in 03 fx Current Treatment: Pembrolizumab 200 mg every 3 weeks started on November 09, 2019 Palliative radiation to be done end of March 2020 secondary to mild progression and continue pembrolizumab after HPI: This is a 40 year old female with no significant PMH presented in August [address] in the neck and left axillary area. She was treated with multiple courses of IV antibiotics without improvement. + B symptoms (fever, drenching night sweats but no wt. loss) and itching rash in the lower exts. Left Axillary LN excisional biopsy: Nodular sclerosis classical Hodgkin lymphoma Feb [address]: IMPRESSION: FINDINGS COMPATIBLE WITH MILD RIGHT CERVICAL AND LEFT ANTERIOR SUBDIAPHRAGMATIC ADENOPATHY, MODERATE TO SEVERE HYPERMETABOLIC BILATERAL AXILLARY AND SUPRACLAVICULAR (LEFT GREATER THAN RIGHT), SUPERIOR MEDIASTINAL, RIGHT PARATRACHEAL, AND ANTERIOR MEDIASTINAL ADENOPATHY. FINDINGS SUSPICIOUS OF HYPERMETABOLIC SPLENIC LYMPHOMATOUS INVOLVEMENT. Bone Marrow Bx was negative incidental finding of pulmonary embolism on CT chest. Patient was started on Lovenox on May 27, 2012 Relapsed S/P 3 cycles of ICE with progression, S/P Brentuximab Vedotin (Adcetris) and Auto BMT Radiation to the chest complicated with Radiation pneumonitis Brentuximab Vedotin (Adcetris) stopped 2nd to grade III pneumonitis She saw Dr. Alejandro sarmiento at [facility] for 2nd opinion cell([id number]) She agreed with out plan and recommended repeat of her PET and if progressed either Opdivo vs clinical trial March 02, 2018 CT chest abdomen and pelvis mild progression of the lymph nodes in the abdomen and pelvis. PET scan was recommended Early 2018 patient was diagnosed with psoriasis (multiple 1-2 cm spots on her extremities). Patient stated rash started when we changed to every 4 weeks dosing. We'll resume every 2 weeks dosing and psoriasis is better to stable 03/13/2019 PET scan showed progression IMPRESSION: 1. NECK: * No FDG avid neoplastic process. 2. CHEST:* No FDG avid neoplastic process. 3. ABDOMEN/PELVIS:* Interval progression of retroperitoneal faustina metastatic disease with increase in size and FDG avidity of nodes/conglomerate masses in the upper abdomen since 03/08/2017. * Development of new FDG avid hepatic metastases in segments II and IVb. * FDG avid splenic lesion has increased in size and relative FDG avidity since the prior exam. 4. EXTREMITIES/SKELETON: No suspicious FDG avid osseous lesion. Deauville score: 5 Ibrutinib was orderef on 04/22/2019 PET scan October 2019 showed disease progression. Ibrutinib was stopped. Pembrolizumab was started in October 2019 PET scan March 2020 mild disease progression Palliative radiation was recommended April 2020 Palliative radiation to the spleen, liver and lymph node at main campus PET showed progression early 2022March 2019 AREA TREATED: right mesenteric LN COURSE: definitive CURRENT DOSE: 2400 cGy in 03 fx PLANNED DOSE: 2400 cGy in 03 fx Interval history: Patient is here for follow-up on above diagnosis. She is doing well off treatment. Denies any symptoms. Patient stated this is the best she felt ever. Otherwise no other complaint no fever no nausea or night sweats PAST MEDICAL HISTORY: History of tachycardia treated with atenolol, pulmonary embolism incidentally found on restaging CT (May 27, 2012). relapsed Hodgkin lymphoma, PJP pneumonia, peripheral neuropathy, radiation pneumonitis PAST SURGICAL HISTORY: Left VATS and Axillary LN FAMILY HISTORY (more content not included)... Normal [facility] PET/CT SKULL-THIGH SUBQon 08-14-2022 NM PET/CT SKULL-THIGH SUBQ * * *Final Report* * * DATE OF EXAM: Aug 14 2022 1:45PM NRN [id number] - NM PET/CT SKULL-THIGH SUBQ / PROCEDURE REASON: Nodular sclerosing Hodgkin's lymphoma, unspecified body region (HCC) * * * * Physician Interpretation * * * * RESULT: WHOLE (OR REGIONAL) BODY PET-CT SCAN CLINICAL HISTORY: Lymphoma. INDICATION: Subsequent treatment strategy. TECHNIQUE: PET-CT scan: Approximately 60 minutes following the IV administration of F-18 FDG (11.6 mCi of F-18 FDG), PET and non contrast CT images were acquired from the skull base through proximal thigh. PET images were reconstructed with and without attenuation correction using attenuation coefficients. The blood glucose level before FDG injection is 103 mg/dL CT Radiation dose: Integrated Dose-length product (DLP) for this visit = 283 mGy*cm. CT Dose Reduction Employed: Automatic exposure control used (AED) COMPARISON: FDG PET-CT: 02/26/2022 CORRELATION: CT of the chest, 07/17/2022. RESULTS: Topogram review: Unremarkable, no acute findings. No retained foreign body. Head and Neck: No evidence of focal uptake to suggest FDG avid neoplastic process. Stable subcentimeter bilateral cervical lymph nodes with mild FDG uptake, likely reactive in nature. Index lesions: Stable 1 x 0.5 cm right submandibular lymph node with max SUV 3.4. Chest: No evidence of focal uptake to suggest FDG avid neoplastic process. Interval decreased metabolism of left apical opacity. Stable scarring and atelectasis in the bilateral lung. Interval development of small left pleural effusion. Abdomen and Pelvis: No evidence of focal uptake to suggest FDG avid neoplastic process. Interval resolution of mesenteric lymph node with minimal residual scarring. Extremities/Skeleton: No evidence of focal uptake to suggest FDG avid neoplastic process. Degenerative arthritic change. IMPRESSION: 1. HEAD and NECK: No evidence of focal uptake to suggest FDG avid neoplastic process.. 2. CHEST: No evidence of focal uptake to suggest FDG avid neoplastic process.. 3. ABDOMEN/PELVIS: No evidence of focal uptake to suggest FDG avid neoplastic process.. 4. EXTREMITIES/SKELETON: No evidence of focal uptake to suggest FDG avid neoplastic process.. *Deauville Criteria Score: 1 Liver parenchyma Max SUV 3.3. Mediastinum blood pool Max SUV 2.2. - score 1 : no uptake - score 2 uptake <= mediastinum - score 3 uptake > mediastinum, but <= liver - score 4 uptake moderately higher than liver - score 5 uptake markedly higher than liver and/or new lesions - score X new areas of uptake unlikely to be related to lymphoma Transcribe Date/Time: Aug 14 2022 3:03P Dictated by: PAUL BENNETT MD This examination was interpreted and the report reviewed and electronically signed by: PAUL BENNETT MD on Aug 14 2022 3:10PM EST Thank you for allowing us to participate in the care of your patient. Should there be any questions regarding this interpretation, please call [phone]. If you are unable to reach us at the number above, please feel free to contact [facility] at [phone]. [id number] Normal [facility] CELSO POTTS ([id number]) 1980 F Date Time Provider Department 08/02/22 ELLA CHAN During your visit today, we recorded the following information about you: Ella Chan APRN.CLINICAL TRIAL DATA MANAGER 08/02/2022 5:06 PM Signed Discussed patient's recent CT scan with Dr. Carver via telephone and also her most recent office visit. Ms. Potts reports improvement in her symptoms since her last visit. She still has a chronic productive cough. No constitutional signs of an infection, in terms of fever, chills, nightsweats or general malaise. We will plan to for repeat PFTs in August followed by office visit with Dr. Carver. Her most recent CT still shows some airway disease as well as unchanged reticular nodular opacities. She was provided with cup for sputum sample in May and again yesterday. We will await sputum sample results. If negative, we will be ok with her continuing her immunotherapy infusions. Plan was discussed with Dr. Carver. I called Celso to discuss plan, I was only able to reach her VM. Will try to call her at another time. Mitzi Brown 08/03/2022 8:35 AM Signed Patient is scheduled for 09/13 at 10am Ella Chan APRN.PEDRO 08/03/2022 12:16 PM Signed Called and spoke with patient, updated her on the plan discussed with Dr. Carver. She is aware of her scheduled appointment for 09/13. Allergies As of Date: 08/02/2022 Noted Allergy Reaction CHLORHEXIDINE 03/11/2013 9 - Itching Comments: Severe skin irritation. Had used for central line care SULFA (SULFONAMIDE ANTIBIOTICS) 01/07/2012 2 - Rash Date Reviewed: 08/01/2022 Reviewed by: Mitzi Hutchinson MA - Fully Assessed Reason for Visit: Patient Update [1234] Primary Visit Diagnosis:Bronchitis [J40] Other Visit Diagnosis:Chronic cough [R05.3] Order(s):SPIROMETRY - BASELINE AND POST DILATOR [7700397] Order #: [id number]: 1 FUTURE LUNG DIFFUSION CAPACITY (DLCO) [[id number]] Order #: [id number]: 1 FUTURE NITRIC OXIDE, EXHALED [[id number]] Order #: [id number]: 1 FUTURE Prescriptions as of 08/05/2022 - Biotin 2,500 mcg cap - mirtazapine (REMERON) 30 mg tablet Take 30 mg by mouth daily at bedtime. - sodium chloride (NEBUSAL) 3 % nebulizer solution Use 4 mL via nebulizer twice daily. - doxycycline monohydrate (MONODOX) 100 mg capsule Take 1 capsule by mouth twice daily. - LORazepam (ATIVAN) 0.5 mg take 1 tablet by mouth twice a day if needed and take 1 TO 2 at bedtime if needed - oxyCODONE IR (ROXICODONE) 10 mg tab Take 1 tablet by mouth every 4 hours as needed (moderate-severe cancer pain) for up to 30 days. - ipratropium-albuterol (DUONEB) 0.5 mg-3 mg(2.5 mg base)/3 mL nebu Inhale 3 mL as instructed every 6 hours as needed for wheezing/shortness of breath. - baclofen (LIORESAL) 5 mg tablet Take 1 tablet by mouth three times daily. - INCRUSE ELLIPTA 62.5 mcg/actuation inhaler Inhale 1 Puff as instructed once daily. - acyclovir (ZOVIRAX) 400 mg tablet take 1 tablet by mouth twice a day - cyclobenzaprine (FLEXERIL) 10 mg tablet Take 1 tablet by mouth three times daily as needed for muscle spasm. - prochlorperazine (COMPAZINE) 10 mg tablet Take 1 tablet by mouth every 6 hours as needed. - gabapentin (NEURONTIN) 300 mg capsule Take 2 capsules by mouth three times daily for 180 days. - tretinoin (RETIN-A) 0.05 % cream Apply a pea size amount to affected area every other night for 2 weeks then increase to daily as tolerated - XARELTO 10 mg tablet take 1 tablet by mouth once daily - albuterol HFA (VENTOLIN HFA) 90 mcg/actuation inhaler Inhale 2 Puffs as instructed every 4 hours as needed for wheezing/shortness of breath. - fluocinonide (LIDEX) 0.05 % cream apply to affected area ON THE RIGHT HAND and legs TWICE A DAY - naloxone 4 mg/actuation nasal spray (NARCAN) Use 1 spray in one nostril as needed for overdose. May repeat every 2 to 3 min in alternating nostrils until medical assistance is available - levothyroxine (SYNTHROID) 75 mcg tablet Take 1 tablet by mouth once daily. - triamcinolone acetonide (KENALOG) 0.1 % ointment APPLY TO THE AFFECTED AREA TWICE A DAY FOR 5 DAYS - traZODone (DESYREL) 50 mg tablet Take 100 mg by mouth daily at bedtime. - Vitamin B Comp and C No.3 (B COMPLEX PLUS VITAMIN C) 15-12-20-5-300 mg cap Take 1 tablet by mouth once daily. - Dexlansoprazole (DEXILANT) 30 mg CpDM Take 1 capsule by mouth once daily. - Lactobac no.41/Bifidobact no.7 (PROBIOTIC-10 ORAL) Take by mouth. - atenolol (TENORMIN) 50 mg tablet take 1 tablet by mouth twice a day - CHOLECALCIFEROL, VITAMIN D3, (VITAMIN D3 ORAL) Take 1,000 Units by mouth once daily. - acetaminophen (TYLENOL) 325 mg tablet Take 1-2 tablets by mouth every 4 hours as needed (not to exceed 2000 mg in a 24 hour period). Facility-Administered Medications as of 08/05/2022 - perflutren lipid microspheres 1.3 mL in NaCl (PF (more content not included)... Normal [facility] CNOVon 08-01-2022 CNOV Office Visit (PULMLO ) CELSO POTTS ([id number]) 1980 F Date Time Provider Department 08/01/22 10:00 AM ELLA CHAN During your visit today, we recorded the following information about you: Temperature Pulse Blood pressure Height 97 degrees 100/minute 115/80 1.803 m Ella Chan APRN.CNP 08/01/2022 8:01 PM Signed [facility] Date: August 01, 2022 8:48 AM Name: Celso Potts : 1980 CC: Pulmonary follow-up Celso Potts is a 42 year old female with PMH recurrent Hodgkin's Lymphoma (dx 01/16/2012), s/p autologous SCT 2013, palliative radiation to spleen, liver and lymph nodes (04/2020), chronic bronchitis, dyspnea, post nasal drip, pulmonary embolism on xarelto, restrictive ventilator defect, and post radiation changes on CT chest, PJP pneumonia allergic to bactrim treated with (primaquine and clindamycin) here today for pulmonary follow-up. Currently on Keytruda every 3 weeks started 10/[address] Ramires. Has been on hold due to recent respiratory infections ASSESSMENT AND PLAN: 1. Chronic cough - ICD9: 786.2, ICD10: R05.3 (primary diagnosis) 2. Productive cough - ICD9: 786.2, ICD10: R05.8 (primary diagnosis) 2. Dyspnea on exertion - ICD9: 786.09, ICD10: R06.09 3. Opacity of lung on imaging study - ICD9: 793.19, ICD10: R91.8 - Most recent PFTs 12/25/2019 with no obstruction. Reduced FVC and TLC indication restriction. Moderately reduced DLCO 56%. History of chronic bronchitis. Hodgkins Lymphoma s/p chemotherapy and radiation to the lungs. Now on Pembrolizumab 200 mg every 3 weeks since November 09, 2019. Keytruda has been on hold d/t recent respiratory infections. Last infusion was 05/01/2022. Is now pending pulmonary clearance to re-start infusions. CT chest 07/17/2022 with more conspicuous mosaic attenuation b/l lung filed, stable nodular opacities, stable left pleural effusion . - Her respiratory symptoms are stable to improved. Her chest tightness and dyspnea has improved since switching from albuterol to duoneb nebulizer. No wheezing on exam. Still has productive cough. - Will start more aggressive airway clearance to help with phlegm - Start airway clearance routine duoneb followed by nebulized saline followed by acapella. Discussed that the duoneb is helping dry her secretions, however she reports it helps with her chest tightness compared to albuterol so will continue with the duonebs. - Continue to use duonebs q6h prn sob/wheezing. - Continue Incruse Ellipta one puff daily. She does not feel any difference with incruse. Will consider switching to LAMA/LABA inhaler. She gets frequent PNA infections will avoid ICS. - Will discuss patient's most recent CT/chart with Dr. Carver to decide if any further workup necessary or if we can proceed with immunotherapy infusion. Will notify Dr. Ramires once I have discussed with Dr. Carver - Please provide respiratory sample - SODIUM CHLORIDE 3 % FOR NEBULIZATION - RESP CULTURE + STAIN Follow up in 3 months and prn I have discussed the above recommendations in detail with the patient. Patient verbalizes understanding and is in agreement with plan as stated above. Patient has been instructed to call our office, their PCP, or go to the nearest emergency department for new or worsening problems, including but not limited to, increasing shortness of breath, cough, fever, or chills. Electronically signed by Ella Chan APRN.[facility] Respiratory [place], [facility] July 31, 2022 HPI: Celso Potts is a 42 year old female with PMH Hodgkin's Lymphoma (dx 01/16/2012), s/p autologous SCT 2013, palliative radiation to spleen, liver and lymph nodes (04/2020), chronic bronchitis, dyspnea, post nasal drip, pulmonary embolism on xarelto, restrictive ventilator defect, and post radiation changes on CT chest, PJP pneumonia allergic to bactrim treated with (primaquine and clindamycin) here today for pulmonary follow-up . She was last seen in the pulmonary office on 06/04/2022 by SARAH. AALENIP from that visit as follows: ASSESSMENT/PLAN: 1. Abnormal CT of the chest - ICD9: 793.2, ICD10: R93.89 (primary diagnosis) 2. Opacity of lung on imaging study - ICD9: 793.19, ICD10: R91.8 3. Simple chronic bronchitis (HCC) - ICD9: 491.0, ICD10: J41.0 4. Dyspnea on exertion - ICD9: 786.09, ICD10: R06.09 5. History of pulmonary embolism - ICD9: V12.55, ICD10: Z86.711 - Most recent PFTs 12/25/2019 with no obstruction. Reduced FVC and TLC indication restriction. Moderately reduced DLCO 56%. History of chronic bronchitis. Hodgkins Lymphoma s/p chemotherapy and radiation to the lungs. Now on Pembrolizumab 200 mg every 3 weeks since November 09, 2019. - Productive cough with SOB since the past few months that has not resolved. - CT chest 05/31 with new reticular nodular opacities in the RML. Will treat with antibio (more content not included)... Normal [facility] CNOVon 07-31-2022 CNOV Office Visit ([facility] ) CELSO POTTS ([id number]) 1980 F Date Time Provider Department 07/31/22 11:00 AM NOVA BRIDGES During your visit today, we recorded the following information about you: Nova Bridges APRN.CLINICAL TRIAL DATA MANAGER 07/31/2022 11:32 AM Signed SKIN EXAM ESTABLISHED LAST OFFICE VISIT: 12/07/2021 CC: This patient is a 42 year old female. Patient presents with: LESION, SKIN: HS left thigh HPI: Location: left thigh Appearance (size, shape, color): boil Duration: 2 weeks Symptoms (growing, itching, bleeding, tender): painful Treatments: Started short course of Doxy 100 BID until able to get in Was treatment effective: slight improvement -Personal history of skin cancer: No -History of blistering sunburns:Yes -Family history of skin cancer: No SOC: Social History Tobacco Use Smoking status: Former Years: 10.00 Types: Cigarettes Quit date: 01/18/2012 Years since quittin.5 Smokeless tobacco: Never Vaping Use Vaping Use: Never used Substance Use Topics Alcohol use: Yes Alcohol/week: 0.0 standard drinks Comment: 2 drinks per month Drug use: No MEDS: Current outpatient prescriptions: Current Outpatient Medications on File Prior to Visit Medication Sig doxycycline monohydrate (MONODOX) 100 mg capsule Take 1 capsule by mouth twice daily. LORazepam (ATIVAN) 0.5 mg take 1 tablet by mouth twice a day if needed and take 1 TO 2 at bedtime if needed oxyCODONE IR (ROXICODONE) 10 mg tab Take 1 tablet by mouth every 4 hours as needed (moderate-severe cancer pain) for up to 30 days. ipratropium-albuterol (DUONEB) 0.5 mg-3 mg(2.5 mg base)/3 mL nebu Inhale 3 mL as instructed every 6 hours as needed for wheezing/shortness of breath. baclofen (LIORESAL) 5 mg tablet Take 1 tablet by mouth three times daily. INCRUSE ELLIPTA 62.5 mcg/actuation inhaler Inhale 1 Puff as instructed once daily. acyclovir (ZOVIRAX) 400 mg tablet take 1 tablet by mouth twice a day cyclobenzaprine (FLEXERIL) 10 mg tablet Take 1 tablet by mouth three times daily as needed for muscle spasm. prochlorperazine (COMPAZINE) 10 mg tablet Take 1 tablet by mouth every 6 hours as needed. gabapentin (NEURONTIN) 300 mg capsule Take 2 capsules by mouth three times daily for 180 days. tretinoin (RETIN-A) 0.05 % cream Apply a pea size amount to affected area every other night for 2 weeks then increase to daily as tolerated XARELTO 10 mg tablet take 1 tablet by mouth once daily albuterol HFA (VENTOLIN HFA) 90 mcg/actuation inhaler Inhale 2 Puffs as instructed every 4 hours as needed for wheezing/shortness of breath. fluocinonide (LIDEX) 0.05 % cream apply to affected area ON THE RIGHT HAND and legs TWICE A DAY naloxone 4 mg/actuation nasal spray (NARCAN) Use 1 spray in one nostril as needed for overdose. May repeat every 2 to 3 min in alternating nostrils until medical assistance is available (Patient not taking: Reported on 06/04/2022) levothyroxine (SYNTHROID) 75 mcg tablet Take 1 tablet by mouth once daily. triamcinolone acetonide (KENALOG) 0.1 % ointment APPLY TO THE AFFECTED AREA TWICE A DAY FOR 5 DAYS traZODone (DESYREL) 50 mg tablet Take 100 mg by mouth daily at bedtime. Vitamin B Comp and C No.3 (B COMPLEX PLUS VITAMIN C) 59-10-67-5-300 mg cap Take 1 tablet by mouth once daily. Dexlansoprazole (DEXILANT) 30 mg CpDM Take 1 capsule by mouth once daily. Lactobac no.41/Bifidobact no.7 (PROBIOTIC-10 ORAL) Take by mouth. atenolol (TENORMIN) 50 mg tablet take 1 tablet by mouth twice a day CHOLECALCIFEROL, VITAMIN D3, (VITAMIN D3 ORAL) Take 1,000 Units by mouth once daily. acetaminophen (TYLENOL) 325 mg tablet Take 1-2 tablets by mouth every 4 hours as needed (not to exceed 2000 mg in a 24 hour period). Current Facility-Administered Medications on File Prior to Visit Medication perflutren lipid microspheres 1.3 mL in NaCl (PF) 0.9% 10 mL injection (DEFINITY) sodium chloride 0.9 % (flush) 10 mL (BD POSIFLUSH) ALLERGY: ALLERGIES Allergen Reactions Chlorhexidine Itching Severe skin irritation. Had used for central line care Sulfa (Sulfonamide * Rash REVIEW OF SYSTEMS: Patient feels well and denies any recent fevers, chills, or nightsweats. PHYSICAL EXAM: The patient is a pleasant female in no distress. Patient appears healthy, well developed, well nourished and in otherwise good health. Alert and oriented x 3. A skin exam was done of the left thigh Smith Skin Type: I IMPRESSION: Left medial thigh with erythematous nodule A/P: (L73.2) Hidradenitis suppurativa (primary encounter diagnosis) (R20.8) Skin pain -chronic destructive inflammatory disorder -seen most commonly on the buttocks, breasts, groin and axillae -associated with obesity and cigarette smoking -Talbert staging system -stage I: abscess without sinus tract/scarring -stage II: recurrent abscess with sinus trac (more content not included)... Normal [facility] CNOVon 07-19-2022 CNOV [facility] ([facility] ) CELSO POTTS ([id number]) 1980 F Date Time Provider Department 07/19/22 10:30 AM JUAN FRANCISCO HUTCHINSON [facility] During your visit today, we recorded the following information about you: Pulse Blood pressure Weight 104/minute 124/84 105.3 kg Juan Francisco Hutchinson APRN.CNP 07/19/2022 11:18 AM Signed PALLIATIVE MEDICINE PROGRESS NOTE SERVICE DATE: 07/19/2022 Primary Site of Disease/Medical Illness: Hodgkin Lymphoma Site of Metastasis: Liver, Lymph nodes, Spleen CHIEF COMPLAINT: pain follow up PERTINENT MEDICAL HISTORY: Celso Potts is a 42 yo female with Hodgkin's Lymphoma diagnosed 01/16/2012 s/p autologous SCT (2013) and several other treatments due to recurrences in that time. She has undergone palliative radiation to spleen, liver, and lymph nodes (April 2020) per Dr. Del Valle, then to right mesenteric LN (March 2022). She is currently treated with Keytruda per Dr. Abimael Ramires. Course has been c/b pulmonary embolus (on AC), PJP pneumonia, herpes zoster. Palliative care is following for symptom control needs. Subjective Last pall care visit 04/23/[address] chest on 07/17 shows she developed more conspicuous mosaic attenuation in bilateral lung rodriguez, reticular nodular opacities in RML (stable), subcentimeter nodular opacities in the left lung (stable), postradiation change to bilateral lung rodriguez. Finished steroids and antibiotics. [place] very good after this but then as time went on cough came back. Awaiting pulmonary f/u. 08/01 Immunotherapy on hold. Will also have PET/CT Presents today alone. Reports feeling at her baseline. Cough and JOE - using mucinex - has production with some yellow and green phelgm. Says she has allergies currently to with PND. Taking benadryl PRN. 24 options make her too dry. Has had new swelling later in the day in BLE. Has been a lot busier and driving a lot more. Took steroids about 6 weeks ago. No other changes in medications. No increase in weight recently. Generalized joint and abd pain is unchanged and remains well controlled on current regimen allowing her to function in daily life and remain very active. A product of her activity continues to be increased muscle cramping in her extremities. She continues to do a good job hydrating. Last labs were check in April as she has not had any treatment recently. She continues to find relief with muscle relaxants. Denies confusion, oversedation, myoclonus. Modified ESAS (Davenport Symptom Assessment Scale) Information Provided By: Patient Pain: Moderate - worsening muscle cramps since being more active. Nausea: None Loss of Appetite: None Constipation: None Shortness of Breath: Moderate on exertion only Drowsiness: None Tiredness: Moderate - no day time sleeping Depression: None Anxiety: None How you feel overall: Good Objective ECOG PERFORMANCE STATUS: 0- Fully active, able to carry on all pre-disease performance w/o restriction. PHYSICAL EXAMINATION: Vital signs: BP 124/84 Pulse 104 Wt 105.3 kg (232 lb 3.2 oz) LMP 11/18/2012 SpO2 94% BMI 31.49 kg/m? Last 1 Encounter Temp Readings: Date: Temp: Temp Src: 07/18/2022 36.8 ?C (98.2 ?F) Oral Last 1 Encounter Resp Readings: Date: Resp: 07/18/2022 18 Last 1 Encounter Pulse Readings: Date: Pulse: 07/18/2022 103 Last 1 Encounter BP Readings: Date: BP: 07/18/2022 124/86 General Appearance: No apparent distress and well nourished, well appearing. Skin: No jaundice and No rash Lungs: unlabored effort, no conversational dyspnea. CV: no edema at present time. Abdomen: no distension Neuro: Alert and oriented to time place and person and gait normal, no myoclonus Psych: Well groomed, Affect congruent with mood, and Good eye contact DATA: Diagnostic tests reviewed for today's visit: Most recent labs and imaging results. Estimated Creatinine Clearance: 145.7 mL/min (based on SCr of 0.7 mg/dL). Opioid Management: Yes Indication for Opioid Prescribing: Cancer related pain ORT-OUD Score: 2 A score of 3 or higher may indicate a higher risk for future development of aberrant drug related behavior or opioid use disorder. Informed consent for chronic opiate therapy obtained and written pain agreement: On file Naloxone offered?: Previously prescribed Course of treatment, patient's response and adherence to the prescribed treatment plan reviewed, including non-pharmacological and non-opioid treatment modalities? Yes Have any complications or exacerbations of the underlying condition causing the pain been reviewed? Yes How much does pain impede patient?s ability to engage in work or other purposeful activities, interfere with your activities of daily living, physical activity, or quality of your family life and social activities? Significantly Aberrancies in pain panel? No Any aberrant drug relat (more content not included)... Normal [facility] CNOVSPon 07-18-2022 CNOVSP Visit ([facility]) Office ([facility]) DELROYCELSO Junior ([id number]) 1980 F Date Time Provider Department 07/18/22 10:50 AM CYN RAMIRES During your visit today, we recorded the following information about you: Temperature Pulse Respiration Blood pressure 98.2 degrees 103/minute 18/minute 124/86 Weight Height 106.4 kg 1.829 m Gunjan Joya FREDDY 07/18/2022 11:26 AM Signed Follow up with Dr. Ramires 08/14 at 9:50a PET scan a few days prior Cyn Ramires MD 07/18/2022 4:07 PM Signed Diagnosis: Recurrent HL, initially Stage IIIb, Nodular sclerosis classical Hodgkin lymphoma diagnosed on 01/16/2012. (age at diagnosis 31YOF, ESR normal, WBC, Hgb, Lymph and alb normal) Previous Treatment: ABVD started on 02/11/2012 x 12 doses progressed to month after stopping treatment ICE x3 progressed after stopping treatment 3 cycles of Brentuximab Vedotin (Adcetris) followed by Auto BMT high-dose busulfan, etoposide, and cyclophosphamide with autologous hematopoietic progenitor cell transplantation in 02/2013 45 Gy in 25 fx was delivered to the mediastinal/hilar/left SC faustina regions using 6 MV photons from 07/27/2013 ? 08/31/2013. Brentuximab Vedotin (Adcetris) Started 02/04/2014 stopped 2nd to neuropathy Nivolumab (Opdivo) started Nov 18 2014 stopped early 2019 Ibrutinib started early 2019. Ordered April 22, 2019 stopped oct AREA TREATED: right mesenteric LN COURSE: definitive CURRENT DOSE: 2400 cGy in 03 fx PLANNED DOSE: 2400 cGy in 03 fx Current Treatment: Pembrolizumab 200 mg every 3 weeks started on November 09, 2019 Palliative radiation to be done end of March 2020 secondary to mild progression and continue pembrolizumab after HPI: This is a 40 year old female with no significant PMH presented in August [address] in the neck and left axillary area. She was treated with multiple courses of IV antibiotics without improvement. + B symptoms (fever, drenching night sweats but no wt. loss) and itching rash in the lower exts. Left Axillary LN excisional biopsy: Nodular sclerosis classical Hodgkin lymphoma Feb [address]: IMPRESSION: FINDINGS COMPATIBLE WITH MILD RIGHT CERVICAL AND LEFT ANTERIOR SUBDIAPHRAGMATIC ADENOPATHY, MODERATE TO SEVERE HYPERMETABOLIC BILATERAL AXILLARY AND SUPRACLAVICULAR (LEFT GREATER THAN RIGHT), SUPERIOR MEDIASTINAL, RIGHT PARATRACHEAL, AND ANTERIOR MEDIASTINAL ADENOPATHY. FINDINGS SUSPICIOUS OF HYPERMETABOLIC SPLENIC LYMPHOMATOUS INVOLVEMENT. Bone Marrow Bx was negative incidental finding of pulmonary embolism on CT chest. Patient was started on Lovenox on May 27, 2012 Relapsed S/P 3 cycles of ICE with progression, S/P Brentuximab Vedotin (Adcetris) and Auto BMT Radiation to the chest complicated with Radiation pneumonitis Brentuximab Vedotin (Adcetris) stopped 2nd to grade III pneumonitis She saw Dr. Alejandro sarmiento at [facility] for 2nd opinion cell([id number]) She agreed with out plan and recommended repeat of her PET and if progressed either Opdivo vs clinical trial March 02, 2018 CT chest abdomen and pelvis mild progression of the lymph nodes in the abdomen and pelvis. PET scan was recommended Early 2018 patient was diagnosed with psoriasis (multiple 1-2 cm spots on her extremities). Patient stated rash started when we changed to every 4 weeks dosing. We'll resume every 2 weeks dosing and psoriasis is better to stable 03/13/2019 PET scan showed progression IMPRESSION: 1. NECK: * No FDG avid neoplastic process. 2. CHEST:* No FDG avid neoplastic process. 3. ABDOMEN/PELVIS:* Interval progression of retroperitoneal faustina metastatic disease with increase in size and FDG avidity of nodes/conglomerate masses in the upper abdomen since 03/08/2017. * Development of new FDG avid hepatic metastases in segments II and IVb. * FDG avid splenic lesion has increased in size and relative FDG avidity since the prior exam. 4. EXTREMITIES/SKELETON: No suspicious FDG avid osseous lesion. Deauville score: 5 Ibrutinib was orderef on 04/22/2019 PET scan October 2019 showed disease progression. Ibrutinib was stopped. Pembrolizumab was started in October 2019 PET scan March 2020 mild disease progression Palliative radiation was recommended April 2020 Palliative radiation to the spleen, liver and lymph node at [facility] PET showed progression early 2022March 2019 AREA TREATED: right mesenteric LN COURSE: definitive CURRENT DOSE: 2400 cGy in 03 fx PLANNED DOSE: 2400 cGy in 03 fx Interval history: Patient is here for follow-up for above diagnoses. Been off treatment for possible respiratory symptoms. She was seen by pulmonary started on antibiotic and prednisone improved but she still have cough. She is seeing pulmonary soon PAST MEDICAL HISTORY: History of tachycardia treated with atenolol, pulmonary embolism incidentally fo (more content not included)... Normal [facility] CT CHEST WO IVCONon 07-18-19 CT CHEST WO IVCON * * *Final Report* * * DATE OF EXAM: Jul 17 2022 1:18PM [facility] 0541 - CT CHEST WO IVCON / PROCEDURE REASON: Opacity of lung on imaging study * * * * Physician Interpretation * * * * EXAMINATION: CHEST CT WITHOUT CONTRAST CLINICAL HISTORY: Hodgkin's lymphoma, follow-up lung opacities Technique: Spiral CT acquisition of the chest from the thoracic inlet to the upper abdomen without contrast. MQ: [id number] CT Radiation dose: Integrated Dose-length product (DLP) for this visit = 328 mGy*cm CT Dose Reduction Employed: mAs-kVp adjusted based on patient size-age Comparison: 05/31/22 RESULT: Limitations: Mild motion artifact. Lines, tubes, and devices: None. Lung parenchyma and airways: Bilateral perihilar consolidative opacities most likely related to postradiation change, stable. Mild mosaic attenuation in the bilateral lung rodriguez, more conspicuous. Mild reticulonodular opacities in the right middle lobe (6:96- 113) most likely infectious/inflammatory in etiology, stable. Multiple subcentimeter nodular opacities in the left lung (6:37, 43, 71, 80, 106, 110) measuring 5 mm, stable since 02/26/22. The central airways are patent. Pleural space: Trace left pleural effusion, stable. Lower neck, lymph nodes, and mediastinum: The imaged thyroid gland is normal. No lymphadenopathy in the supraclavicular, axillary, mediastinal, or hilar regions. Heart, pericardium, and thoracic vessels: The thoracic aorta is normal in caliber. Main pulmonary artery is borderline prominent measuring 3.0 cm in diameter. The cardiac chambers are normal in size. No coronary artery atherosclerotic calcifications are noted, although the study is not optimized for coronary assessment. No pericardial effusion or thickening. Bones and soft tissues: Sclerotic focus in the left coracoid process, most likely a bone island, stable. No new osseous abnormalities. Upper abdomen: Diffuse hepatic fatty infiltration. No evidence of adrenal mass.. Creative Services Designer (topogram) images: No additional findings. IMPRESSION: 1. More conspicuous mosaic attenuation in the bilateral lung rodriguez. 2. Mild reticular nodular opacities in the right middle lobe most likely infectious/inflammatory in etiology, stable. Consider follow-up to complete resolution. 3. Trace left pleural effusion, stable. 4. Subcentimeter nodular opacities in the left lung measuring up to 5 mm, stable 5. Postradiation changes in the bilateral lung rodriguez. Casting House Laborer: DEDE Transcribe Date/Time: Jul 18 2022 8:19A Dictated by : YOGESH DAVIS MD This examination was interpreted and the report reviewed and electronically signed by: YOGESH DAVIS MD on Jul 18 2022 8:58AM EST [id number] Normal [facility] CBC AUTO DIFFon 06-21-2022 BASO # 0.0 103/ul Normal 0.0-0.1 [facility] Comment on above: Performed By: #### C BC #### [facility] [address] [place] [address] Dr. Kristina Morales Basophils/100 WBC (Bld) 0.4 % Normal 0.2-2.0 [facility] Comment on above: Performed By: #### C BC #### [facility] [address] [place] [address] Dr. Kristina Morales EO # 0.2 103/ul Normal 0.0-0.7 [facility] Comment on above: Performed By: #### C BC #### [facility] [address] [place] [address] Dr. Kristina Morales Eosinophils/100 WBC (Bld) 2.9 % Normal 0.9-7.0 [facility] Comment on above: Performed By: #### C BC #### [facility] [address] [place] [address] Dr. Kristina Morales Erythrocyte distribution width (RBC) [Ratio] 13.7 % Normal 11.0-15.0 [facility] Comment on above: Performed By: #### C BC #### [facility] [address] [place] [address] Dr. Kristina Morales Hematocrit (Bld) [Volume fraction] 44.2 % Normal 36.0-48.0 [facility] Comment on above: Performed By: #### C BC #### [facility] [address] [place] [address] Dr. Kristina Morales Hemoglobin (Bld) [Mass/Vol] 14.9 g/dL Normal 12.0-16.0 [facility] Comment on above: Performed By: #### C BC #### [facility] [address] [place] [address] Dr. Kristina Morales IG # 0.02 10e3/ul Normal 0.00-0.03 [facility] Comment on above: Performed By: #### C BC #### [facility] [address] [place] [address] Dr. Kristina Morales IG % 0.3 % Normal 0.0-0.5 [facility] Comment on above: Performed By: #### C BC #### [facility] [address] [place] [address] Dr. Kristina Morales LYMPH # 2.0 103/ul Normal 1.2-3.8 [facility] Comment on above: Performed By: #### C BC #### [facility] [address] [place] [address] Dr. Kristina Morales Lymphocytes/100 WBC (Bld) 27.8 % Normal 20.5-60.0 [facility] Comment on above: Performed By: #### C BC #### [facility] [address] [place] [address] Dr. Kristina Morales MANUAL DIFF REQ NO Normal [facility] Comment on above: Performed By: #### C BC #### [facility] [address] [place] [address] Dr. Kristina Morales MCH (RBC) [Entitic mass] 32.0 pg Normal 26.7-34.0 [facility] Comment on above: Performed By: #### C BC #### [facility] [address] [address] [address] Kristina Morales MCHC (RBC) [Mass/Vol] 33.7 g/dL Normal 29.9-35.2 [facility] Comment on above: Performed By: #### C BC #### [facility] [address] [address] [address] Kristina Morales MCV (RBC) [Entitic vol] 94.8 fL Normal 81.0-99.0 [facility] Comment on above: Performed By: #### C BC #### [facility] [address] [place] [address] Dr. Kristina Morales MONO # 0.7 103/ul Normal 0.3-0.8 [facility] Comment on above: Performed By: #### C BC #### [facility] [address] [place] [address] Dr. Kristina Morales Monocytes/100 WBC (Bld) 9.5 % Normal 1.7-12.0 [facility] Comment on above: Performed By: #### C BC #### [facility] [address] [place] [address] Dr. Kristina Morales NEUT # 4.2 103/ul Normal 1.4-6.5 [facility] Comment on above: Performed By: #### C BC #### [facility] [address] [place] [address] Dr. Kristina Morales Neutrophils/100 WBC (Bld) 59.1 % Normal 43.0-75.0 [facility] Comment on above: Performed By: #### C BC #### [facility] [address] [place] [address] Dr. Kristina Morales Platelet mean volume (Bld) [Entitic vol] 9.1 fL Critically low 9.5-13.5 [facility] Comment on above: Performed By: #### C BC #### [facility] [address] [place] [address] Dr. Kristina Morales PLT 302 103/ul Normal 150-450 [facility] Comment on above: Performed By: #### C BC #### [facility] [address] [address] [address] Kristina Morales RBC 4.66 106/ul Normal 4.20-5.40 [facility] Comment on above: Performed By: #### C BC #### [facility] [address] [address] [address] Kristina Morales WBC 7.2 103/ul Normal 4.0-11.0 [facility] Comment on above: Performed By: #### C BC #### [facility] [address] [address] [address] Kristina Morales CRPon 06-21-2022 CRP 2.2 mg/dL Critically high <=1.0 [facility] Comment on above: Performed By: #### C RP, BMP #### [facility] [address] [place] [address] HEAD WO CONon 06-21-2022 CT HEAD WO CON EXAM: CT HEAD WO CON 06/21/2022 5:09 AM EDT OH001 CLINICAL STATEMENT: HEADACHE COMPARISON: No prior studies are available at the time of dictation. TECHNIQUE: Multiple axial images were obtained of the brain without intravenous contrast. AEC is utilized. 2-D reconstructed images are provided. FINDINGS: The ventricles and the cortical sulci have normal size contour and symmetry. There is no evidence for intracranial hemorrhage. There is no mass effect and or midline shift. No extra-axial collections. Limited evaluation of the orbits and the paranasal sinuses are normal. IMPRESSION: No acute intracranial abnormality. Electronically authenticated by: CONG SAID Date: 2022-06-21 05:34 Normal [facility] PROF CHEM 8 (BAS METB)on Anion gap [Moles/Vol] 11.9 mmol/L Normal [facility] Comment on above: Performed By: #### C RP, BMP #### [facility] [address] [address] [address] Kristina Morales Calcium [Mass/Vol] 9.5 mg/dL Normal 8.5-10.1 [facility] Comment on above: Performed By: #### C RP, BMP #### [facility] [address] [address] [address] Kristina Morales Chloride [Moles/Vol] 106 mmol/L Normal 98-107 [facility] Comment on above: Performed By: #### C RP, BMP #### [facility] [address] [address] [address] Kristina Morales CO2 [Moles/Vol] 26.7 mmol/L Normal 21.0-32.0 [facility] Comment on above: Performed By: #### C RP, BMP #### [facility] [address] [address] [address] Kristina Morales Creatinine [Mass/Vol] 0.91 mg/dL Normal 0.55-1.02 [facility] Comment on above: Performed By: #### C RP, BMP #### [facility] [address] [place] [address] Dr. Kristina Morales EGFR-AF MOLDOVAN >60 Normal >=60 [facility] Comment on above: Performed By: #### C RP, BMP #### [facility] [address] [place] [address] Dr. Kristina Morales EGFR-NON AF MOLDOVAN >60 Normal >=60 [facility] Comment on above: Performed By: #### C RP, BMP #### [facility] [address] [place] [address] Dr. Kristina Morales Glucose [Mass/Vol] 118 mg/dL Critically high 74-106 [facility] Comment on above: Performed By: #### C RP, BMP #### [facility] [address] [place] [address] Dr. Kristina Morales Potassium [Moles/Vol] 3.6 mmol/L Normal 3.5-5.1 [facility] Comment on above: Performed By: #### C RP, BMP #### [facility] [address] [address] [address] Kristina Morales Sodium [Moles/Vol] 141 mmol/L Normal 136-145 [facility] Comment on above: Performed By: #### C RP, BMP #### [facility] [address] [address] [address] Kristina Morales Urea nitrogen [Mass/Vol] 17.0 mg/dL Normal 7.0-18.0 [facility] Comment on above: Performed By: #### C RP, BMP #### [facility] [address] [address] [address] Kristina Morales Urea nitrogen/Creatinine [Mass ratio] 18.7 mg/mg Normal [facility] Comment on above: Performed By: #### C RP, BMP #### [facility] [address] [address] [address] [facility] Tele[facility] (PULMLO) CELSO POTTS ([id number]) 1980 F TRN Date Time Provider Department 06/13/22 ELLA CHAN During your visit today, we recorded the following information about you: HILARY Dougherty 06/13/2022 1:19 PM Signed Celso Potts called today. : 1980 Allergies: Chlorhexidine and Sulfa (Sulfonamide Antibiotics) (home) [phone] (cell) Reason for call: Patient states that at the last office visit 06/04/22 the provider was going to call in [facility]. She states it was not called in . Please advise. e- [id number] [place] [address] - [address] [facility] - [phone] [id number] [address] [facility] [id number] Patient last appointment: 06/04/2022 The patients preferred pharmacy has been captured for this encounter? yes Marilyn Hughes, PSS Mitzi Hutchinson MA 06/13/2022 1:32 PM Signed Called pharmacy on dial to verify they have medication in stock and I spoke with pharmacy clinical coordinator Savannah who states they have 1 box in stock. Please advise. Ella Chan APRN.PEDRO 06/15/2022 4:03 PM Signed Prescription for duonebs sent to pharmacy. Called patient and updated her. Also let her know she should discontinue her albuterol nebulizer once she starts her duonebs. Allergies As of Date: 06/13/2022 Noted Allergy Reaction CHLORHEXIDINE 03/11/2013 9 - Itching Comments: Severe skin irritation. Had used for central line care SULFA (SULFONAMIDE ANTIBIOTICS) 01/07/2012 2 - Rash Date Reviewed: 06/04/2022 Reviewed by: Ella Chan APRN.CLINICAL TRIAL DATA MANAGER - Fully Assessed Reason for Visit: New Medication [4091] Primary Visit Diagnosis:Dyspnea on exertion [R06.09] Order(s):ipratropium-al buterol (DUONEB) 0.5 mg-3 mg(2.5 mg base)/3 mL nebuInhale 3 mL as instructed every 6 hours as needed for wheezing/shortness of breath.Disp: 540 mLRfl: 1 Prescriptions as of 06/15/2022 - ipratropium-albuterol (DUONEB) 0.5 mg-3 mg(2.5 mg base)/3 mL nebu Inhale 3 mL as instructed every 6 hours as needed for wheezing/shortness of breath. - LORazepam (ATIVAN) 0.5 mg take 1 tablet twice a day if needed and take 1 to 2 tablets by mouth at bedtime if needed - baclofen (LIORESAL) 5 mg tablet Take 1 tablet by mouth three times daily. - oxyCODONE IR (ROXICODONE) 10 mg tab Take 1 tablet by mouth every 4 hours as needed (moderate-severe cancer pain) for up to 30 days. Do not start before June 14, 2022. - INCRUSE ELLIPTA 62.5 mcg/actuation inhaler Inhale 1 Puff as instructed once daily. - predniSONE (DELTASONE) 20 mg tablet Take 2 tablets by mouth once daily. - acyclovir (ZOVIRAX) 400 mg tablet take 1 tablet by mouth twice a day - cyclobenzaprine (FLEXERIL) 10 mg tablet Take 1 tablet by mouth three times daily as needed for muscle spasm. - prochlorperazine (COMPAZINE) 10 mg tablet Take 1 tablet by mouth every 6 hours as needed. - gabapentin (NEURONTIN) 300 mg capsule Take 2 capsules by mouth three times daily for 180 days. - tretinoin (RETIN-A) 0.05 % cream Apply a pea size amount to affected area every other night for 2 weeks then increase to daily as tolerated - prochlorperazine (COMPAZINE) 10 mg tablet Take 1 tablet by mouth every 6 hours as needed. - XARELTO 10 mg tablet take 1 tablet by mouth once daily - SPIRIVA RESPIMAT 2.5 mcg/actuation inhaler INHALE 2 PUFFS DIRECTED ONCE DAILY - albuterol HFA (VENTOLIN HFA) 90 mcg/actuation inhaler Inhale 2 Puffs as instructed every 4 hours as needed for wheezing/shortness of breath. - fluocinonide (LIDEX) 0.05 % cream apply to affected area ON THE RIGHT HAND and legs TWICE A DAY - chlorhexidine (HIBICLENS) 4 % external liquid In groin as a wash - naloxone 4 mg/actuation nasal spray (NARCAN) Use 1 spray in one nostril as needed for overdose. May repeat every 2 to 3 min in alternating nostrils until medical assistance is available - levothyroxine (SYNTHROID) 75 mcg tablet Take 1 tablet by mouth once daily. - triamcinolone acetonide (KENALOG) 0.1 % ointment APPLY TO THE AFFECTED AREA TWICE A DAY FOR 5 DAYS - traZODone (DESYREL) 50 mg tablet Take 100 mg by mouth daily at bedtime. - Vitamin B Comp and C No.3 (B COMPLEX PLUS VITAMIN C) 77-12-83-5-300 mg cap Take 1 tablet by mouth once daily. - Dexlansoprazole (DEXILANT) 30 mg CpDM Take 1 capsule by mouth once daily. - Lactobac no.41/Bifidobact no.7 (PROBIOTIC-10 ORAL) Take by mouth. - atenolol (TENORMIN) 50 mg tablet take 1 tablet by mouth twice a day - CHOLECALCIFEROL, VITAMIN D3, (VITAMIN D3 ORAL) Take 1,000 Units by mouth once daily. - acetaminophen (TYLENOL) 325 mg tablet Take 1-2 tablets by mouth every 4 hours as needed (not to exceed 2000 mg in a 24 hour period). Facility-Administered Medications as of 06/15/2022 - perflutren lipid microspheres 1.3 mL in NaCl (PF) 0.9% 10 mL injection (DEFINITY) - sodium ch (more content not included)... Normal [facility] CNOVon 06-04-2022 CNOV Office Visit (PULMLO ) CELSO POTTS ([id number]) 1980 F TRN Date Time Provider Department 06/04/22 9:30 AM ELLA CHAN During your visit today, we recorded the following information about you: Temperature Pulse Blood pressure Weight 97.1 degrees 100/minute 126/89 108.4 kg Height 1.81 m Ella Chan APRN.CLINICAL TRIAL DATA MANAGER 06/05/2022 1:06 PM Signed [facility] Date: June 04, 2022 9:21 AM Name: Celso Potts : 1980 CC: follow up for dyspnea Celso Potts is a 41 year old female with PMH simple chronic bronchitis, dyspnea, post nasal drip, pulmonary embolism on xarelto, restrictive ventilator defect, 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 ASSESSMENT/PLAN: 1. Abnormal CT of the chest - ICD9: 793.2, ICD10: R93.89 (primary diagnosis) 2. Opacity of lung on imaging study - ICD9: 793.19, ICD10: R91.8 3. Simple chronic bronchitis (HCC) - ICD9: 491.0, ICD10: J41.0 4. Dyspnea on exertion - ICD9: 786.09, ICD10: R06.09 5. History of pulmonary embolism - ICD9: V12.55, ICD10: Z86.711 - Most recent PFTs 12/25/2019 with no obstruction. Reduced FVC and TLC indication restriction. Moderately reduced DLCO 56%. History of chronic bronchitis. Hodgkins Lymphoma s/p chemotherapy and radiation to the lungs. Now on Pembrolizumab 200 mg every 3 weeks since November 09, 2019. - Productive cough with SOB since the past few months that has not resolved. - CT chest 05/31 with new reticular nodular opacities in the RML. Will treat with antibiotics and steroid and repeat CT scan to monitor for resolution in 6-8 weeks. - AMOXICILLIN 875 MG-POTASSIUM CLAVULANATE 125 MG TABLET - DOXYCYCLINE HYCLATE 100 MG CAPSULE - PREDNISONE 20 MG TABLET - RESP CULTURE + STAIN - CT CHEST WO IVCON - Continue incruse ellipta and spiriva daily. - Continue albuterol HFA prn for SOB and wheezing - Continue albuterol nebulizer can increase to q4h until you start feeling better, then return to q4h as needed. - Will consider updated PFTs after next appointment. - Continue to follow with heme/onc. Would recommend holding off on next pembrolizumab treatment until after therapy for lung infection and after repeat CT chest. Will monitor for resolution of symptoms and new opacities at next visit. Follow-up in 6 weeks and prn I have discussed the above recommendations in detail with the patient. Patient verbalizes understanding and is in agreement with plan as stated above. Patient has been instructed to call our office, their PCP, or go to the nearest emergency department for new or worsening problems, including but not limited to, increasing shortness of breath, cough, fever, or chills. Electronically signed by Ella Chan APRN.[facility] Respiratory [place], [facility] June 04, 2022 HPI: Celso Potts is a 41 year old female with PMH simple chronic bronchitis, dyspnea, post nasal drip, pulmonary embolism, restrictive ventilator defect, nodular sclerosis Hodgkin Lymphoma and intrathoracic lymph nodes here today for follow-up for dyspnea. She was last seen in the pulmonary office on 04/12/2021 by Valarie Jade APRN. AANDP from that visit as follows: Assessment: -Simple chronic bronchitis -Restrictive ventilatory defect -Nodular sclerosis classical Hodgkin lymphoma-diagnosed 01/16/2012; status post XRT; Pembrolizumab started 10/2019 -History of pulmonary embolism -Former smoker -Anxiety Plan: -Discontinued Advair and Singulair -Continue albuterol as needed for shortness of breath or wheezing -Prescribed start Spiriva Respimat 2 puffs once per day -Provided Acapella to use after Spiriva and/or albuterol -Continue to follow with heme-onc -On Xarelto -Advised wearing compression socks on airplane -Ordered plies for nebulizer and patient like this faxed to [facility] Discussed with the patient who agrees to the plan RTO in 3 months Since then, no unplanned hospitalizations for breathing issues. Recently saw heme/onc 05/22 for productive cough with yellow sputum for 6 to 8 weeks. Today, she reports she has been has been having a cough and always clearing her throat for the last few months. She reports this has been going on for about 6 months. Shortness of breath is getting worse. Feels like she can't catch her breath at times. Uses her albuterol and feels like it does not help. She takes Mucinex in the evenings which helps, but if she forgets to take it in the evening the cough is worse the next day. Productive cough with yellow/alcantara phlegm. Reports wheezing and crackles that are worse at night. Sometimes prevents her from sleeping. Uses nebulizer every night for sure and some times throughout the day. Takes benadryl, Abiola (more content not included)... Normal [facility] CT CHEST WO IVCONon 06-01-19 CT CHEST WO IVCON * * *Final Report* * * DATE OF EXAM: May 31 2022 8:04AM [facility] 0541 - CT CHEST WO IVCON / PROCEDURE REASON: Acute cough * * * * Physician Interpretation * * * * RESULT: EXAMINATION: CHEST CT WITHOUT CONTRAST CLINICAL HISTORY: Hodgkin's lymphoma, acute cough Technique: Spiral CT acquisition of the chest from the thoracic inlet to the upper abdomen without contrast. MQ: [id number] CT Radiation dose: Integrated Dose-length product (DLP) for this visit = 377 mGy*cm CT Dose Reduction Employed: Automated exposure control (AEC) Comparison: PET/CT scan dated 02/26/22; chest CT scan dated 05/29/19 RESULT: Limitations: Mild motion artifact. Lines, tubes, and devices: None. Lung parenchyma and airways: Bilateral perihilar consolidative opacities most likely related to postradiation change, stable. Previously noted mosaic attenuation is less conspicuous. New reticulonodular opacities in the right middle lobe (4:96-116) most likely infectious/inflammatory in etiology. Multiple subcentimeter nodular opacities in the left lung (4:42, 47, 76, 85, 109) measuring 5 mm, stable since 02/26/22. The central airways are patent. Pleural space: New trace left pleural effusion. Lower neck, lymph nodes, and mediastinum: The imaged thyroid gland is normal. No lymphadenopathy in the supraclavicular, axillary, mediastinal, or hilar regions. Heart, pericardium, and thoracic vessels: The thoracic aorta and main pulmonary artery are normal in caliber. The cardiac chambers are normal in size. No coronary artery atherosclerotic calcifications are noted, although the study is not optimized for coronary assessment. No pericardial effusion or thickening. Bones and soft tissues: Sclerotic focus in the left coracoid process, most likely a bone island, stable. No new osseous abnormalities. Upper abdomen: Diffuse hepatic fatty infiltration. Creative Services Designer (topogram) images: No additional findings. IMPRESSION: 1. Mild reticular nodular opacities in the right middle lobe most likely infectious/inflammatory in etiology, new since 02/26/22. Consider follow-up to complete resolution. 2. New trace left pleural effusion. 3. Subcentimeter nodular opacities in the left lung measuring 5 mm, stable since 02/26/22. 4. Postradiation changes in the bilateral lung rodriguez. 5. Mosaic attenuation in the bilateral lung rodriguez suggestive of air trapping, less conspicuous. Transcribe Date/Time: May 31 2022 10:36A Dictated by: YOGESH DAVIS MD This examination was interpreted and the report reviewed and electronically signed by: YOGESH DAVIS MD on May 31 2022 12:33PM EST Thank you for allowing us to participate in the care of your patient. Should there be any questions regarding this interpretation, please call [phone]. If you are unable to reach us at the number above, please feel free to contact [facility] at [phone]. [id number] Normal [facility] CNOVSPon 05-22-2022 CNOVSP Visit (SP) Office (HEMAVN) CELSO POTTS ([id number]) 1980 F TRN Date Time Provider Department 05/22/22 8:50 AM CYN RAMIRES During your visit today, we recorded the following information about you: Temperature Pulse Blood pressure 98.9 degrees 97/minute 110/54 Cyn Ramires MD 05/22/2022 9:07 AM Signed Diagnosis: Recurrent HL, initially Stage IIIb, Nodular sclerosis classical Hodgkin lymphoma diagnosed on 01/16/2012. (age at diagnosis 31YOF, ESR normal, WBC, Hgb, Lymph and alb normal) Previous Treatment: ABVD started on 02/11/2012 x 12 doses progressed to month after stopping treatment ICE x3 progressed after stopping treatment 3 cycles of Brentuximab Vedotin (Adcetris) followed by Auto BMT high-dose busulfan, etoposide, and cyclophosphamide with autologous hematopoietic progenitor cell transplantation in 02/2013 45 Gy in 25 fx was delivered to the mediastinal/hilar/left SC faustina regions using 6 MV photons from 07/27/2013 ? 08/31/2013. Brentuximab Vedotin (Adcetris) Started 02/04/2014 stopped 2nd to neuropathy Nivolumab (Opdivo) started Nov 18 2014 stopped 2019 Ibrutinib started early 2019. Ordered April 22, 2019 stopped oct AREA TREATED: right mesenteric LN COURSE: definitive CURRENT DOSE: 2400 cGy in 03 fx PLANNED DOSE: 2400 cGy in 03 fx Current Treatment: Pembrolizumab 200 mg every 3 weeks started on November 09, 2019 Palliative radiation to be done end of March 2020 secondary to mild progression and continue pembrolizumab after HPI: This is a 40 year old female with no significant PMH presented in August [address] in the neck and left axillary area. She was treated with multiple courses of IV antibiotics without improvement. + B symptoms (fever, drenching night sweats but no wt. loss) and itching rash in the lower exts. Left Axillary LN excisional biopsy: Nodular sclerosis classical Hodgkin lymphoma Feb [address]: IMPRESSION: FINDINGS COMPATIBLE WITH MILD RIGHT CERVICAL AND LEFT ANTERIOR SUBDIAPHRAGMATIC ADENOPATHY, MODERATE TO SEVERE HYPERMETABOLIC BILATERAL AXILLARY AND SUPRACLAVICULAR (LEFT GREATER THAN RIGHT), SUPERIOR MEDIASTINAL, RIGHT PARATRACHEAL, AND ANTERIOR MEDIASTINAL ADENOPATHY. FINDINGS SUSPICIOUS OF HYPERMETABOLIC SPLENIC LYMPHOMATOUS INVOLVEMENT. Bone Marrow Bx was negative incidental finding of pulmonary embolism on CT chest. Patient was started on Lovenox on May 27, 2012 Relapsed S/P 3 cycles of ICE with progression, S/P Brentuximab Vedotin (Adcetris) and Auto BMT Radiation to the chest complicated with Radiation pneumonitis Brentuximab Vedotin (Adcetris) stopped 2nd to grade III pneumonitis She saw Dr. Alejandro sarmiento at [facility] for 2nd opinion cell([id number]) She agreed with out plan and recommended repeat of her PET and if progressed either Opdivo vs clinical trial March 02, 2018 CT chest abdomen and pelvis mild progression of the lymph nodes in the abdomen and pelvis. PET scan was recommended Early 2018 patient was diagnosed with psoriasis (multiple 1-2 cm spots on her extremities). Patient stated rash started when we changed to every 4 weeks dosing. We'll resume every 2 weeks dosing and psoriasis is better to stable 03/13/2019 PET scan showed progression IMPRESSION: 1. NECK: * No FDG avid neoplastic process. 2. CHEST:* No FDG avid neoplastic process. 3. ABDOMEN/PELVIS:* Interval progression of retroperitoneal faustina metastatic disease with increase in size and FDG avidity of nodes/conglomerate masses in the upper abdomen since 03/08/2017. * Development of new FDG avid hepatic metastases in segments II and IVb. * FDG avid splenic lesion has increased in size and relative FDG avidity since the prior exam. 4. EXTREMITIES/SKELETON: No suspicious FDG avid osseous lesion. Deauville score: 5 Ibrutinib was orderef on 04/22/2019 PET scan October 2019 showed disease progression. Ibrutinib was stopped. Pembrolizumab was started in October 2019 PET scan March 2020 mild disease progression Palliative radiation was recommended April 2020 Palliative radiation to the spleen, liver and lymph node at main campus PET showed progression early 2022March 2019 AREA TREATED: right mesenteric LN COURSE: definitive CURRENT DOSE: 2400 cGy in 03 fx PLANNED DOSE: 2400 cGy in 03 fx Interval history: Patient is here for another cycle of pembrolizumab. She has been tolerating treatment well without any significant side effect but today stated that she has been having a productive cough with yellow sputum for the last 6 to 8 weeks. Mucinex helped with the cough but once she stopped taking it the cough with yellow sputum comes back. Antiallergy medication did not help PAST MEDICAL HISTORY: History of tachycardia treated with atenolol, pulmonary embolism incidentally found on restaging CT (May 27, (more content not included)... Normal [facility] CBC W Auto Differential pane l (Bld)on 05-14-2022 Basophils (Bld) [#/Vol] 0.04 10*3/uL Normal <0.11 [facility] [place] Comment on above: Order Comment: Speci men Type: BLOOD SPECIMENOrdering Facility: [facility] Address: [address] [place] [address] Performed By: #### 5 7021-8 ####[facility] LABCLIA [id number] [place] [address] Basophils/100 WBC (Bld) 0.5 % Normal [facility] [place] Comment on above: Order Comment: Speci malu Type: BLOOD SPECIMENOrdering Facility: [facility] Address: [address] [place] [address] Performed By: #### 5 7021-8 ####[facility] LABCLIA [id number] [place] [address] Differential cell count method Nom (Bld) Auto Normal [facility] [place] Comment on above: Order Comment: Speci men Type: BLOOD SPECIMENOrdering Facility: [facility] Address: [address] [place] [address] Performed By: #### 5 7021-8 ####[facility] LABCLIA [id number] [place] [address] Eosinophils (Bld) [#/Vol] 0.20 10*3/uL Normal <0.46 [facility] [place] Comment on above: Order Comment: Speci men Type: BLOOD SPECIMENOrdering Facility: [facility] Address: [address] [place] [address] Performed By: #### 5 7021-8 ####[facility] LABCLIA [id number] [place] [address] Eosinophils/100 WBC (Bld) 2.4 % Normal [facility] [place] Comment on above: Order Comment: Speci men Type: BLOOD SPECIMENOrdering Facility: [facility] Address: [address] [address] Performed By: #### 5 7021-8 ####[facility] LABCLIA [id number] [place] [address] Erythrocyte distribution width (RBC) [Ratio] 13.4 % Normal 11.5-15.0 [facility] [place] Comment on above: Order Comment: Speci men Type: BLOOD SPECIMENOrdering Facility: [facility] Address: [address] [place] [address] Performed By: #### 5 7021-8 ####[facility] LABCLIA [id number] [place] [address] Hematocrit (Bld) [Volume fraction] 46.1 % High 36.0-46.0 [facility] [place] Comment on above: Order Comment: Speci men Type: BLOOD SPECIMENOrdering Facility: [facility] Address: [address] [place] [address] Performed By: #### 5 7021-8 ####[facility] LABCLIA [id number] [place] [address] Hemoglobin (Bld) [Mass/Vol] 15.2 g/dL Normal 11.5-15.5 [facility] [place] Comment on above: Order Comment: Speci men Type: BLOOD SPECIMENOrdering Facility: [facility] Address: [address] [place] [address] Performed By: #### 5 7021-8 ####[facility] LABCLIA [id number] [place] [address] Immature granulocytes (Bld) [#/Vol] 0.03 10*3/uL Normal <0.10 [facility] [place] Comment on above: Order Comment: Speci men Type: BLOOD SPECIMENOrdering Facility: [facility] Address: [address] [place] [address] Performed By: #### 5 7021-8 ####[facility] LABCLIA [id number] [place] [address] Immature granulocytes/100 WBC (Bld) 0.4 % Normal [facility] [place] Comment on above: Order Comment: Speci men Type: BLOOD SPECIMENOrdering Facility: [facility] Address: [address] [place] [address] Performed By: #### 5 7021-8 ####[facility] LABIA [id number] [place] [address] Lymphocytes (Bld) [#/Vol] 1.91 10*3/uL Normal 1.00-4.00 [facility] [place] Comment on above: Order Comment: Speci men Type: BLOOD SPECIMENOrdering Facility: [facility] Address: [address] [place] [address] Performed By: #### 5 7021-8 ####[facility] LABIA [id number] [place] [address] Lymphocytes/100 WBC (Bld) 22.9 % Normal [facility] [place] Comment on above: Order Comment: Speci men Type: BLOOD SPECIMENOrdering Facility: [facility] Address: [address] [place] [address] Performed By: #### 5 7021-8 ####[facility] LABIA [id number] [place] [address] MCH (RBC) [Entitic mass] 31.0 pg Normal 26.0-34.0 [facility] [place] Comment on above: Order Comment: Speci men Type: BLOOD SPECIMENOrdering Facility: [facility] Address: [address] [address] Performed By: #### 5 7021-8 ####[facility] LABCLIA [id number] [place] [address] MCHC (RBC) [Mass/Vol] 33.0 g/dL Normal 30.5-36.0 [facility] [place] Comment on above: Order Comment: Speci men Type: BLOOD SPECIMENOrdering Facility: [facility] Address: [address] [place] [address] Performed By: #### 5 7021-8 ####[facility] LABIA [id number] [place] [address] MCV (RBC) [Entitic vol] 93.9 fL Normal 80.0-100.0 [facility] [place] Comment on above: Order Comment: Speci men Type: BLOOD SPECIMENOrdering Facility: [facility] Address: [address] [place] [address] Performed By: #### 5 7021-8 ####[facility] LABIA [id number] [place] [address] Monocytes (Bld) [#/Vol] 0.53 10*3/uL Normal <0.87 [facility] [place] Comment on above: Order Comment: Speci men Type: BLOOD SPECIMENOrdering Facility: [facility] Address: [address] [place] [address] Performed By: #### 5 7021-8 ####[facility] LABCLIA [id number] [place] [address] Monocytes/100 WBC (Bld) 6.4 % Normal [facility] [place] Comment on above: Order Comment: Speci men Type: BLOOD SPECIMENOrdering Facility: [facility] Address: [address] [place] [address] Performed By: #### 5 7021-8 ####[facility] LABIA [id number] [place] [address] Neutrophils (Bld) [#/Vol] 5.63 10*3/uL Normal 1.45-7.50 [facility] [place] Comment on above: Order Comment: Speci men Type: BLOOD SPECIMENOrdering Facility: [facility] Address: [address] [place] [address] Performed By: #### 5 7021-8 ####[facility] LABCLIA [id number] [place] [address] Neutrophils/100 WBC (Bld) 67.4 % Normal [facility] [place] Comment on above: Order Comment: Speci men Type: BLOOD SPECIMENOrdering Facility: [facility] Address: [address] [place] [address] Performed By: #### 5 7021-8 ####[facility] LABCLIA [id number] [place] [address] Nucleated RBC (Bld) [#/Vol] 10*3/uL Normal <0.01 [facility] [place] Comment on above: Order Comment: Speci men Type: BLOOD SPECIMENOrdering Facility: [facility] Address: [address] [place] [address] Performed By: #### 5 7021-8 ####[facility] LABCLIA [id number] [place] [address] Nucleated RBC/100 WBC (Bld) [Ratio] 0.0 /100 WBC Normal [facility] [place] Comment on above: Order Comment: Speci men Type: BLOOD SPECIMENOrdering Facility: [facility] Address: [address] [place] [address] Performed By: #### 5 7021-8 ####[facility] LABCLIA [id number] [place] [address] Platelet mean volume (Bld) [Entitic vol] 8.8 fL Low 9.0-12.7 [facility] [place] Comment on above: Order Comment: Speci men Type: BLOOD SPECIMENOrdering Facility: [facility] Address: [address] [place] [address] Performed By: #### 5 7021-8 ####[facility] LABCLIA [id number] [place] [address] Platelets (Bld) [#/Vol] 315 10*3/uL Normal 150-400 [facility] [place] Comment on above: Order Comment: Speci men Type: BLOOD SPECIMENOrdering Facility: [facility] Address: [address] [place] [address] Performed By: #### 5 7021-8 ####[facility] LABCLIA [id number] [place] [address] RBC (Bld) [#/Vol] 4.91 10*6/uL Normal 3.90-5.20 [facility] Comment on above: Order Comment: Speci men Type: BLOOD SPECIMENOrdering Facility: [facility] Address: [address] [place] [address] Performed By: #### 5 7021-8 ####[facility] LABIA [id number] [place] [address] WBC (Bld) [#/Vol] 8.34 10*3/uL Normal 3.70-11.00 [facility] Comment on above: Order Comment: Speci men Type: BLOOD SPECIMENOrdering Facility: [facility] Address: [address] [place] [address] Performed By: #### 5 7021-8 ####[facility] LABCLIA [id number] [place] [address] Comprehensive metabolic 2000 panelon 05-14-2022 Albumin [Mass/Vol] 4.5 g/dL Normal 3.9-4.9 [facility] Comment on above: Order Comment: Speci men Type: BLOOD SPECIMENOrdering Facility: [facility] Address: [address] [place] [address] Performed By: #### 2 4323-8 ####[facility] LABCLIA [id number] [place] [address] ALP [Catalytic activity/Vol] 93 U/L Normal 34-123 [facility] [place] Comment on above: Order Comment: Speci men Type: BLOOD SPECIMENOrdering Facility: [facility] Address: [address] [place] [address] Performed By: #### 2 4323-8 ####[facility] LABCLIA [id number] [place] [address] ALT [Catalytic activity/Vol] 57 U/L High 7-38 [facility] [place] Comment on above: Order Comment: Speci men Type: BLOOD SPECIMENOrdering Facility: [facility] Address: [address] [place] [address] Performed By: #### 2 4323-8 ####[facility] LABCLIA [id number] [place] [address] Anion gap [Moles/Vol] 12 mmol/L Normal 9-18 [facility] [place] Comment on above: Order Comment: Speci men Type: BLOOD SPECIMENOrdering Facility: [facility] Address: [address] [place] [address] Performed By: #### 2 4323-8 ####[facility] LABCLIA [id number] [place] [address] AST [Catalytic activity/Vol] 42 U/L High 13-35 [facility] [place] Comment on above: Order Comment: Speci men Type: BLOOD SPECIMENOrdering Facility: [facility] Address: [address] [address] Performed By: #### 2 4323-8 ####[facility] LABCLIA [id number] [place] [address] Bilirubin [Mass/Vol] 0.3 mg/dL Normal 0.2-1.3 [facility] [place] Comment on above: Order Comment: Speci men Type: BLOOD SPECIMENOrdering Facility: [facility] Address: [address] [place] [address] Performed By: #### 2 4323-8 ####[facility] LABCLIA [id number] [place] [address] Calcium [Mass/Vol] 9.9 mg/dL Normal 8.5-10.2 [facility] Comment on above: Order Comment: Speci men Type: BLOOD SPECIMENOrdering Facility: [facility] Address: [address] [place] [address] Performed By: #### 2 4323-8 ####[facility] LABCLIA [id number] [place] [address] Chloride [Moles/Vol] 103 mmol/L Normal 97-105 [facility] [place] Comment on above: Order Comment: Speci men Type: BLOOD SPECIMENOrdering Facility: [facility] Address: [address] [place] [address] Performed By: #### 2 4323-8 ####[facility] LABCLIA [id number] [place] [address] CO2 [Moles/Vol] 25 mmol/L Normal 22-30 [facility] [place] Comment on above: Order Comment: Speci men Type: BLOOD SPECIMENOrdering Facility: [facility] Address: [address] [place] [address] Performed By: #### 2 4323-8 ####[facility] LABCLIA [id number] [place] [address] Creatinine [Mass/Vol] 0.70 mg/dL Normal 0.58-0.96 [facility] [place] Comment on above: Order Comment: Speci men Type: BLOOD SPECIMENOrdering Facility: [facility] Address: [address] [place] [address] Performed By: #### 2 4323-8 ####[facility] LABCLIA [id number] [place] [address] ESTIMATED GLOMERULAR FILTRATION RATE 113 mL/min/1.73m??? Normal >=60 [facility] [place] Comment on above: Order Comment: Speci men Type: BLOOD SPECIMENOrdering Facility: [facility] Address: [address] [id number] Result Comment: Purnima mated Glomerular Filtration Rate (eGFR) is calculated using the 2020 CKD-EPI creatinine equation. This equation utilizes serum creatinine, sex, and age as parameters. The creatinine assay has traceable calibration to isotope dilution-mass spectrometry. Refer to KDIGO guidelines for clinical interpretation. In patients with unstable renal function, e.g. those with acute kidney injury, the eGFR may not accurately reflect actual GFR. Performed By: #### 2 4323-8 ####[facility] LABCLIA [id number] [place] [address] Glucose [Mass/Vol] 138 mg/dL High 74-99 [facility] Comment on above: Order Comment: Nicole toribio Type: BLOOD SPECIMENOrdering Facility: [facility] Address: [address] [place] [address] Result Comment: The [place] Diabetes Association (ADA) provides guidance for cutoff values for fasting glucose and random glucose. The ADA defines fasting as no caloric intake for at least 8 hours. Fasting plasma glucose results between 100 to 125 mg/dL indicate increased risk for diabetes (prediabetes). Fasting plasma glucose results greater than or equal to 126 mg/dL meet the criteria for diagnosis of diabetes. In the absence of unequivocal hyperglycemia, results should be confirmed by repeat testing. In a patient with classic symptoms of hyperglycemia or hyperglycemic crisis, random plasma glucose results greater than or equal to 200 mg/dL meet the criteria for diagnosis of diabetes. Reference: Standards of Medical Care in Diabetes 2016, [place] [employer]. Diabetes Care. 2016.39(Suppl 1). Performed By: #### 2 4323-8 ####[facility] LABCLIA [id number] [place] [address] Potassium [Moles/Vol] 4.4 mmol/L Normal 3.7-5.1 [facility] [place] Comment on above: Order Comment: Nicole toribio Type: BLOOD SPECIMENOrdering Facility: [facility] Address: [address] [id number] Performed By: #### 2 4323-8 ####[facility] LABCLIA [id number] [place] [address] Protein [Mass/Vol] 7.4 g/dL Normal 6.3-8.0 [facility] Comment on above: Order Comment: Speci men Type: BLOOD SPECIMENOrdering Facility: [facility] Address: [address] [address] Performed By: #### 2 4323-8 ####[facility] LABCLIA [id number] [place] [address] Sodium [Moles/Vol] 140 mmol/L Normal 136-144 [facility] Comment on above: Order Comment: Speci men Type: BLOOD SPECIMENOrdering Facility: [facility] Address: [address] [place] [address] Performed By: #### 2 4323-8 ####[facility] LABCLIA [id number] [place] [address] Urea nitrogen [Mass/Vol] 19 mg/dL Normal 7-21 [facility] [place] Comment on above: Order Comment: Speci men Type: BLOOD SPECIMENOrdering Facility: [facility] Address: [address] [place] [address] Performed By: #### 2 4323-8 ####[facility] LABCLIA [id number] [place] [address] [place] 05-15-19 23 Cortisol [Mass/Vol] 3.5 ug/dL Low 4.8-19.5 [facility] Comment on above: Order Comment: Speci men Type: BLOOD SPECIMENOrdering Facility: [facility] Address: [address] [place] [address] Result Comment: Prov ided reference range is from 6-10 AM sample collection time. Cortisol Reference Range: 6-10 AM = 4.8-19.5 ug/dL, 4-8 PM = 2.5-11.9 ug/dL Performed By: #### 3 024-7, 3016-3, 2143-6 ####[facility] LABCLIA [id number] [address] [address] [place] T4 Free SerPl-mCncon 023 Free T4 [Mass/Vol] 1.1 ng/dL Normal 0.9-1.7 [facility] Comment on above: Order Comment: Speci men Type: BLOOD SPECIMENOrdering Facility: [facility] Address: [address] [place] [address] Performed By: #### 3 024-7, 3015-3, 2142-07 ####[facility] LABIA [id number] [address] TSH SerPl-aCncon 05-14-2022 TSH Qn 1.220 m[IU]/L Normal 0.270-4.200 [facility] [place] Comment on above: Order Comment: Speci men Type: BLOOD SPECIMENOrdering Facility: [facility] Address: [address] [place] [address] Result Comment: If t he patient is , TSH reference range varies by gestational period: First Trimester (weeks 9-12): 0.180-2.990 mIU/L Second Trimester: 0.110-3.980 mIU/L Third Trimester: 0.480-4.710 mIU/L Samuel Patel et al. A Practical Approach for the Verifications and Determination of Site- and Trimester-Specific Reference Intervals for Thyroid Function tests in . Thyroid, 2019:29:3:412-420. Mirza Lopes, et al. 2017 Guidelines of the [place] Thyroid Association for the Diagnosis and Management of Thyroid Disease during and the . Thyroid, 2017:27:3:315-389. Performed By: #### 3 024-7, 3015-3, 2142-07 ####[facility] [id number] [address] [id number] [place] CBC W Auto Differential pane l (Bld)on 04-30-2022 Basophils (Bld) [#/Vol] 0.03 10*3/uL Normal <0.11 [facility] [place] Comment on above: Order Comment: Speci men Type: BLOOD SPECIMENOrdering Facility: [facility] Address: [address] [address] Performed By: #### 5 7021-8 ####[facility] LABCLIA [id number] [place] [address] Basophils/100 WBC (Bld) 0.4 % Normal [facility] [place] Comment on above: Order Comment: Speci men Type: BLOOD SPECIMENOrdering Facility: [facility] Address: [address] [address] Performed By: #### 5 7021-8 ####[facility] LABCLIA [id number] [place] [address] Differential cell count method Nom (Bld) Auto Normal [facility] [place] Comment on above: Order Comment: Speci men Type: BLOOD SPECIMENOrdering Facility: [facility] Address: [address] [address] Performed By: #### 5 7021-8 ####[facility] LABCLIA [id number] [place] [address] Eosinophils (Bld) [#/Vol] 0.27 10*3/uL Normal <0.46 [facility] [place] Comment on above: Order Comment: Speci men Type: BLOOD SPECIMENOrdering Facility: [facility] Address: [address] [address] Performed By: #### 5 7021-8 ####[facility] LABCLIA [id number] [place] [address] Eosinophils/100 WBC (Bld) 3.4 % Normal [facility] [place] Comment on above: Order Comment: Speci men Type: BLOOD SPECIMENOrdering Facility: [facility] Address: [address] [address] Performed By: #### 5 7021-8 ####[facility] LABCLIA [id number] [place] [address] Erythrocyte distribution width (RBC) [Ratio] 13.5 % Normal 11.5-15.0 [facility] [place] Comment on above: Order Comment: Speci men Type: BLOOD SPECIMENOrdering Facility: [facility] Address: [address] [place] [address] Performed By: #### 5 7021-8 ####[facility] LABCLIA [id number] [place] [address] Hematocrit (Bld) [Volume fraction] 43.8 % Normal 36.0-46.0 [facility] Comment on above: Order Comment: Speci men Type: BLOOD SPECIMENOrdering Facility: [facility] Address: [address] [place] [address] Performed By: #### 5 7021-8 ####[facility] LABCLIA [id number] [place] [address] Hemoglobin (Bld) [Mass/Vol] 14.6 g/dL Normal 11.5-15.5 [facility] Comment on above: Order Comment: Speci men Type: BLOOD SPECIMENOrdering Facility: [facility] Address: [address] [place] [address] Performed By: #### 5 7021-8 ####[facility] LABCLIA [id number] [place] [address] Immature granulocytes (Bld) [#/Vol] 0.03 10*3/uL Normal <0.10 [facility] [place] Comment on above: Order Comment: Speci men Type: BLOOD SPECIMENOrdering Facility: [facility] Address: [address] [place] [address] Performed By: #### 5 7021-8 ####[facility] LABCLIA [id number] [place] [address] Immature granulocytes/100 WBC (Bld) 0.4 % Normal [facility] Comment on above: Order Comment: Speci men Type: BLOOD SPECIMENOrdering Facility: [facility] Address: [address] [place] [address] Performed By: #### 5 7021-8 ####[facility] LABCLIA [id number] [place] [address] Lymphocytes (Bld) [#/Vol] 1.85 10*3/uL Normal 1.00-4.00 [facility] Comment on above: Order Comment: Speci men Type: BLOOD SPECIMENOrdering Facility: [facility] Address: [address] [place] [address] Performed By: #### 5 7021-8 ####[facility] LABCLIA [id number] [place] [address] Lymphocytes/100 WBC (Bld) 23.5 % Normal [facility] Comment on above: Order Comment: Speci men Type: BLOOD SPECIMENOrdering Facility: [facility] Address: [address] [place] [address] Performed By: #### 5 7021-8 ####[facility] LABCLIA [id number] [place] [address] MCH (RBC) [Entitic mass] 31.8 pg Normal 26.0-34.0 [facility] Comment on above: Order Comment: Speci men Type: BLOOD SPECIMENOrdering Facility: [facility] Address: [address] [place] [address] Performed By: #### 5 7021-8 ####[facility] LABCLIA [id number] [place] [address] MCHC (RBC) [Mass/Vol] 33.3 g/dL Normal 30.5-36.0 [facility] Comment on above: Order Comment: Speci men Type: BLOOD SPECIMENOrdering Facility: [facility] Address: [address] [place] [address] Performed By: #### 5 7021-8 ####[facility] LABIA [id number] [place] [address] MCV (RBC) [Entitic vol] 95.4 fL Normal 80.0-100.0 [facility] Comment on above: Order Comment: Speci men Type: BLOOD SPECIMENOrdering Facility: [facility] Address: [address] [address] Performed By: #### 5 7021-8 ####[facility] LABCLIA [id number] [place] [address] Monocytes (Bld) [#/Vol] 0.64 10*3/uL Normal <0.87 [facility] [place] Comment on above: Order Comment: Speci men Type: BLOOD SPECIMENOrdering Facility: [facility] Address: [address] [address] Performed By: #### 5 7021-8 ####[facility] LABCLIA [id number] [place] [address] Monocytes/100 WBC (Bld) 8.1 % Normal [facility] Comment on above: Order Comment: Speci men Type: BLOOD SPECIMENOrdering Facility: [facility] Address: [address] [address] Performed By: #### 5 7021-8 ####[facility] LABCLIA [id number] [place] [address] Neutrophils (Bld) [#/Vol] 5.04 10*3/uL Normal 1.45-7.50 [facility] Comment on above: Order Comment: Speci men Type: BLOOD SPECIMENOrdering Facility: [facility] Address: [address] [address] Performed By: #### 5 7021-8 ####[facility] LABCLIA [id number] [place] [address] Neutrophils/100 WBC (Bld) 64.2 % Normal [facility] Comment on above: Order Comment: Speci men Type: BLOOD SPECIMENOrdering Facility: [facility] Address: [address] [address] Performed By: #### 5 7021-8 ####[facility] LABCLIA [id number] [place] [address] Nucleated RBC (Bld) [#/Vol] 10*3/uL Normal <0.01 [facility] Comment on above: Order Comment: Speci men Type: BLOOD SPECIMENOrdering Facility: [facility] Address: [address] [place] [address] Performed By: #### 5 7021-8 ####[facility] LABCLIA [id number] [place] [address] Nucleated RBC/100 WBC (Bld) [Ratio] 0.0 /100 WBC Normal [facility] Comment on above: Order Comment: Speci men Type: BLOOD SPECIMENOrdering Facility: [facility] Address: [address] [place] [address] Performed By: #### 5 7021-8 ####[facility] LABCLIA [id number] [place] [address] Platelet mean volume (Bld) [Entitic vol] 8.9 fL Low 9.0-12.7 [facility] Comment on above: Order Comment: Speci men Type: BLOOD SPECIMENOrdering Facility: [facility] Address: [address] [place] [address] Performed By: #### 5 7021-8 ####[facility] LABCLIA [id number] [place] [address] Platelets (Bld) [#/Vol] 289 10*3/uL Normal 150-400 [facility] Comment on above: Order Comment: Speci men Type: BLOOD SPECIMENOrdering Facility: [facility] Address: [address] [place] [address] Performed By: #### 5 7021-8 ####[facility] LABCLIA [id number] [place] [address] RBC (Bld) [#/Vol] 4.59 10*6/uL Normal 3.90-5.20 [facility] Comment on above: Order Comment: Speci men Type: BLOOD SPECIMENOrdering Facility: [facility] Address: [address] [address] Performed By: #### 5 7021-8 ####[facility] LABIA [id number] [place] [address] WBC (Bld) [#/Vol] 7.86 10*3/uL Normal 3.70-11.00 [facility] Comment on above: Order Comment: Speci men Type: BLOOD SPECIMENOrdering Facility: [facility] Address: [address] [address] Performed By: #### 5 7021-8 ####[facility] LABIA [id number] [place] [address] Comprehensive metabolic 2000 panelon 04-30-2022 Albumin [Mass/Vol] 4.3 g/dL Normal 3.9-4.9 [facility] Comment on above: Order Comment: Speci men Type: BLOOD SPECIMENOrdering Facility: [facility] Address: [address] [address] Performed By: #### 2 4323-8 ####[facility] LABIA [id number] [place] [address] ALP [Catalytic activity/Vol] 99 U/L Normal 34-123 [facility] Comment on above: Order Comment: Speci men Type: BLOOD SPECIMENOrdering Facility: [facility] Address: [address] [address] Performed By: #### 2 4323-8 ####[facility] LABIA [id number] [place] [address] ALT [Catalytic activity/Vol] 50 U/L High 7-38 [facility] Comment on above: Order Comment: Speci men Type: BLOOD SPECIMENOrdering Facility: [facility] Address: [address] [address] Performed By: #### 2 4323-8 ####[facility] LABCLIA [id number] [place] [address] Anion gap [Moles/Vol] 7 mmol/L Low 9-18 [facility] Comment on above: Order Comment: Speci men Type: BLOOD SPECIMENOrdering Facility: [facility] Address: [address] [place] [address] Performed By: #### 2 4323-8 ####[facility] LABCLIA [id number] [place] [address] AST [Catalytic activity/Vol] 43 U/L High 13-35 [facility] Comment on above: Order Comment: Speci men Type: BLOOD SPECIMENOrdering Facility: [facility] Address: [address] [place] [address] Performed By: #### 2 4323-8 ####[facility] LABCLIA [id number] [place] [address] Bilirubin [Mass/Vol] 0.3 mg/dL Normal 0.2-1.3 [facility] Comment on above: Order Comment: Speci men Type: BLOOD SPECIMENOrdering Facility: [facility] Address: [address] [place] [address] Performed By: #### 2 4323-8 ####[facility] LABCLIA [id number] [place] [address] Calcium [Mass/Vol] 10.0 mg/dL Normal 8.5-10.2 [facility] Comment on above: Order Comment: Speci men Type: BLOOD SPECIMENOrdering Facility: [facility] Address: [address] [place] [address] Performed By: #### 2 4323-8 ####[facility] LABCLIA [id number] [place] [address] Chloride [Moles/Vol] 102 mmol/L Normal 97-105 [facility] Comment on above: Order Comment: Speci men Type: BLOOD SPECIMENOrdering Facility: [facility] Address: [address] [address] Performed By: #### 2 4323-8 ####[facility] LABCLIA [id number] [place] [address] CO2 [Moles/Vol] 29 mmol/L Normal 22-30 [facility] Comment on above: Order Comment: Speci men Type: BLOOD SPECIMENOrdering Facility: [facility] Address: [address] [place] [address] Performed By: #### 2 4323-8 ####[facility] LABCLIA [id number] [place] [address] Creatinine [Mass/Vol] 0.69 mg/dL Normal 0.58-0.96 [facility] Comment on above: Order Comment: Speci men Type: BLOOD SPECIMENOrdering Facility: [facility] Address: [address] [place] [address] Performed By: #### 2 4323-8 ####[facility] LABCLIA [id number] [place] [address] ESTIMATED GLOMERULAR FILTRATION RATE 113 mL/min/1.73m??? Normal >=60 [facility] Comment on above: Order Comment: Speci men Type: BLOOD SPECIMENOrdering Facility: [facility] Address: [address] [place] [address] Result Comment: Purnima mated Glomerular Filtration Rate (eGFR) is calculated using the 2020 CKD-EPI creatinine equation. This equation utilizes serum creatinine, sex, and age as parameters. The creatinine assay has traceable calibration to isotope dilution-mass spectrometry. Refer to KDIGO guidelines for clinical interpretation. In patients with unstable renal function, e.g. those with acute kidney injury, the eGFR may not accurately reflect actual GFR. Performed By: #### 2 4323-8 ####[facility] LABCLIA [id number] [place] [address] Glucose [Mass/Vol] 112 mg/dL High 74-99 [facility] Comment on above: Order Comment: Speci men Type: BLOOD SPECIMENOrdering Facility: [facility] Address: [address] [id number] Result Comment: The [place] Diabetes Association (ADA) provides guidance for cutoff values for fasting glucose and random glucose. The ADA defines fasting as no caloric intake for at least 8 hours. Fasting plasma glucose results between 100 to 125 mg/dL indicate increased risk for diabetes (prediabetes). Fasting plasma glucose results greater than or equal to 126 mg/dL meet the criteria for diagnosis of diabetes. In the absence of unequivocal hyperglycemia, results should be confirmed by repeat testing. In a patient with classic symptoms of hyperglycemia or hyperglycemic crisis, random plasma glucose results greater than or equal to 200 mg/dL meet the criteria for diagnosis of diabetes. Reference: Standards of Medical Care in Diabetes 2016, [place] [employer] Association. Diabetes Care. 2016.39(Suppl 1). Performed By: #### 2 4323-8 ####[facility] LABCLIA [id number] [place] [address] Potassium [Moles/Vol] 4.6 mmol/L Normal 3.7-5.1 [facility] Comment on above: Order Comment: Speci [facility] Type: BLOOD SPECIMENOrdering Facility: [facility] Address: [address] Performed By: #### 2 4323-8 ####[facility] LABCLIA [id number] [place] [address] Protein [Mass/Vol] 6.9 g/dL Normal 6.3-8.0 [facility] Comment on above: Order Comment: Speci men Type: BLOOD SPECIMENOrdering Facility: [facility] Address: [address] [phone] Performed By: #### 2 4323-8 ####[facility] LABCLIA [id number] [place] [address] Sodium [Moles/Vol] 138 mmol/L Normal 136-144 [facility] Comment on above: Order Comment: Speci men Type: BLOOD SPECIMENOrdering Facility: [facility] Address: [address] [place] [address] Performed By: #### 2 4323-8 ####[facility] LABCLIA [id number] [place] [address] Urea nitrogen [Mass/Vol] 12 mg/dL Normal 7-21 [facility] Comment on above: Order Comment: Speci men Type: BLOOD SPECIMENOrdering Facility: [facility] Address: [address] [place] [address] Performed By: #### 2 4323-8 ####[facility] LABCLIA [id number] [place] [address] T4 Free SerPl-mCncon 023 Free T4 [Mass/Vol] 1.0 ng/dL Normal 0.9-1.7 [facility] Comment on above: Order Comment: Speci men Type: BLOOD SPECIMENOrdering Facility: [facility] Address: [address] [place] [address] Performed By: #### 3 024-7, 3016-3 ####[facility] LABCLIA [id number] [facility] [id number] [address] [place] TSH SerPl-aCncon 04-30-2022 TSH Qn 1.580 m[IU]/L Normal 0.270-4.200 [facility] Comment on above: Order Comment: Speci men Type: BLOOD SPECIMENOrdering Facility: [facility] Address: [address] [place] [address] Result Comment: If t he patient is , TSH reference range varies by gestational period: First Trimester (weeks 9-12): 0.180-2.990 mIU/L Second Trimester: 0.110-3.980 mIU/L Third Trimester: 0.480-4.710 mIU/L Samuel Patel et al. A Practical Approach for the Verifications and Determination of Site- and Trimester-Specific Reference Intervals for Thyroid Function tests in . Thyroid, 2019:29:3:412-420. Mirza E, et al. 2017 Guidelines of the [place] Thyroid Association for the Diagnosis and Management of Thyroid Disease during and the . Thyroid, 2017:27:3:315-389. Performed By: #### 3 024-7, 3016-3 ####[facility] CHIDI [id number] [address] [id number] [place] CNPSigrid 04-25-2022 CNPN Telephone (RADTMN) CELSO POTTS ([id number]) 1980 F TRN Date Time Provider Department 04/25/22 MAYE ELDER During your visit today, we recorded the following information about you: Maye Elder RN 04/25/2022 2:20 PM Signed RADIATION POST TREATMENT CALL BACK Today's date: April 25, 2022 Patient's final treatment on 04/06/2022. Treatment site right mesenteric LN Called patient to follow-up on symptom management and follow-up appointments. Spoke with Celso. Focused Toxicity Assessment: Abdomen right mesenteric LN Pain: upset stomach Fatigue: increased fatigue over baseline but not altering normal activities Appetite: increased appetite Nutritional Intake: Regular oral intake: yes Nausea: yes every morning Vomiting: no Bowel Function: normal bowel movements Bladder Function: WNL Erythema/Hyperpigmentat ion: none Desquamation: none Rash: none Skin Care: None Skin Sensation: Within Normal Limits Fever/chills: No Weight Loss: No Ascites: No Psychosocial Risk Factors: None Does the patient need interventions, referrals or same day appointment:No Reinforced CURRENT treatment education based on current and anticipated symptoms. Patient instructed to contact Dr. Del Valle's office with questions or concerns or Radiation Oncology Fellow Business Systems Architect after 5pm and on weekends for urgent issues. Patient verbalized understanding of when to seek medical attention and after hours number protocol. Follow up appointment: Reminded patient of virtual visit on 05/18/2022 with Sarah Carranza, RN Allergies As of Date: 04/25/2022 Noted Allergy Reaction CHLORHEXIDINE 03/11/2013 9 - Itching Comments: Severe skin irritation. Had used for central line care SULFA (SULFONAMIDE ANTIBIOTICS) 01/07/2012 2 - Rash Date Reviewed: 04/23/2022 Reviewed by: Juan Francisco Hutchinson APRN.CLINICAL TRIAL DATA MANAGER - Fully Assessed Reason for Visit: Post Radiation Treatment Follow Up [[id number]] Cmt: Second attempt Prescriptions as of 04/25/2022 - cyclobenzaprine (FLEXERIL) 10 mg tablet Take 1 tablet by mouth three times daily as needed. - LORazepam (ATIVAN) 0.5 mg take 1 tablet twice a day if needed and take 1 to 2 tablets by mouth at bedtime if needed - oxyCODONE IR (ROXICODONE) 10 mg tab Take 1 tablet by mouth every 4 hours as needed (moderate-severe cancer pain) for up to 30 days. - baclofen (LIORESAL) 5 mg tablet Take 1 tablet by mouth three times daily. - prochlorperazine (COMPAZINE) 10 mg tablet Take 1 tablet by mouth every 6 hours as needed. - gabapentin (NEURONTIN) 300 mg capsule Take 2 capsules by mouth three times daily for 180 days. - tretinoin (RETIN-A) 0.05 % cream Apply a pea size amount to affected area every other night for 2 weeks then increase to daily as tolerated - prochlorperazine (COMPAZINE) 10 mg tablet Take 1 tablet by mouth every 6 hours as needed. - XARELTO 10 mg tablet take 1 tablet by mouth once daily - SPIRIVA RESPIMAT 2.5 mcg/actuation inhaler INHALE 2 PUFFS DIRECTED ONCE DAILY - albuterol HFA (VENTOLIN HFA) 90 mcg/actuation inhaler Inhale 2 Puffs as instructed every 4 hours as needed for wheezing/shortness of breath. - acyclovir (ZOVIRAX) 400 mg tablet take 1 tablet by mouth twice a day - fluocinonide (LIDEX) 0.05 % cream apply to affected area ON THE RIGHT HAND and legs TWICE A DAY - chlorhexidine (HIBICLENS) 4 % external liquid In groin as a wash - naloxone 4 mg/actuation nasal spray (NARCAN) Use 1 spray in one nostril as needed for overdose. May repeat every 2 to 3 min in alternating nostrils until medical assistance is available - levothyroxine (SYNTHROID) 75 mcg tablet Take 1 tablet by mouth once daily. - albuterol (PROVENTIL) 2.5 mg /3 mL (0.083 %) nebulizer solution inhale contents of 1 vial ( 3 milliliters ) in nebulizer by mouth... (REFER TO PRESCRIPTION NOTES). - triamcinolone acetonide (KENALOG) 0.1 % ointment APPLY TO THE AFFECTED AREA TWICE A DAY FOR 5 DAYS - traZODone (DESYREL) 50 mg tablet Take 100 mg by mouth daily at bedtime. - Vitamin B Comp and C No.3 (B COMPLEX PLUS VITAMIN C) 21-15-66-5-300 mg cap Take 1 tablet by mouth once daily. - Dexlansoprazole (DEXILANT) 30 mg CpDM Take 1 capsule by mouth once daily. - Lactobac no.41/Bifidobact no.7 (PROBIOTIC-10 ORAL) Take by mouth. - atenolol (TENORMIN) 50 mg tablet take 1 tablet by mouth twice a day - CHOLECALCIFEROL, VITAMIN D3, (VITAMIN D3 ORAL) Take 1,000 Units by mouth once daily. - acetaminophen (TYLENOL) 325 mg tablet Take 1-2 tablets by mouth every 4 hours as needed (not to exceed 2000 mg in a 24 hour period). Facility-Administered Medications as of 04/25/2022 - perflutren lipid microspheres 1.3 mL in NaCl (PF) 0.9% 10 mL injection (DEFINITY) - sodium chloride 0.9 % (flush) 10 mL (BD POSIFLUSH) Meds Comments as of 04/02/2013: stop lovanox 24hours prior to chacho (more content not included)... Normal [facility] CNOVon 04-23-2022 CNOV Office Visit (PMAE ) CELSO POTTS ([id number]) 1980 F TRN Date Time Provider Department 04/23/22 10:00 AM JUAN FRANCISCO HUTCHINSON During your visit today, we recorded the following information about you: Pulse Blood pressure Weight 99/minute 113/77 106.9 kg Juan Francisco Hutchinson APRN.CNP 04/23/2022 11:11 AM Signed PALLIATIVE MEDICINE PROGRESS NOTE SERVICE DATE: 04/23/2022 Primary Site of Disease/Medical Illness: Hodgkin Lymphoma Site of Metastasis: Liver, Lymph nodes, Spleen CHIEF COMPLAINT: follow up pain PERTINENT MEDICAL HISTORY: Celso Potts is a 41 yo female with Hodgkin's Lymphoma diagnosed 01/16/2012 s/p autologous SCT (2013) and several other treatments due to recurrences in that time. She has undergone palliative radiation to spleen, liver, and lymph nodes per Dr. Del Valle. She is currently treated with Keytruda per Dr. Abimael Ramires. Course has been c/b pulmonary embolus (on AC). Palliative care is following for symptom control needs. Subjective Last pall care visit 01/25/22 Since last seen, had progression in right mesenteric LN s/p radiation per Dr. Del Valle Today presents alone Reports feeling largely at her baseline but continues to experience GI upset and fatigue associated to radiation. She is using pepto tabs which are helpful for GI upset. Generalized joint pains associated to immunotherapy and muscle spasms are at baseline and well controlled with baclofen, cyclobenzoprine, gabapentin, APAP and oxycodone. She is able to remain fully functional and gets good sleep quality with this regimen. Denies confusion, oversedation, myoclonus. Denies constipation - taking colace Eating well. Weight is maintained but she chooses not to watch her weight because this causes her more anxiety. Mood is stable. She is noting improved mood as weather changes to spring. Modified ESAS ([place] Symptom Assessment Scale) Information Provided By: Patient Pain: Moderate Nausea: Mild Loss of Appetite: None Constipation: None Shortness of Breath: None Drowsiness: None Tiredness: Mild Depression: None Anxiety: Mild How you feel overall: Good Objective ECOG PERFORMANCE STATUS: 0- Fully active, able to carry on all pre-disease performance w/o restriction. PHYSICAL EXAMINATION: Vital signs: BP 113/77 Pulse 99 Wt 106.9 kg (235 lb 11.2 oz) LMP 11/18/2012 BMI 32.63 kg/m? Last 1 Encounter Temp Readings: Date: Temp: Temp Src: 04/10/2022 36.8 ?C (98.3 ?F) Oral Last 1 Encounter Resp Readings: Date: Resp: 04/06/2022 21 Last 1 Encounter Pulse Readings: Date: Pulse: 04/23/2022 99 Last 1 Encounter BP Readings: Date: BP: 04/23/2022 113/77 General Appearance: No apparent distress and well nourished Skin: No jaundice and No rash Lungs: unlabored respirations, no conversational dyspnea Abdomen: Soft and no distension Musculoskeletal: No edema and No gross deformity Neuro: Alert and oriented to time place and person and gait normal, no myoclonus Psych: Well groomed, Affect congruent with mood, and Good eye contact DATA: Diagnostic tests reviewed for today's visit: Most recent labs and imaging results. Estimated Creatinine Clearance: 139.8 mL/min (based on SCr of 0.73 mg/dL). Opioid Management: Yes Indication for Opioid Prescribing: Cancer related pain ORT-OUD Score: 2 A score of 3 or higher may indicate a higher risk for future development of aberrant drug related behavior or opioid use disorder. Informed consent for chronic opiate therapy obtained and written pain agreement: On file Naloxone offered?: Previously prescribed Course of treatment, patient's response and adherence to the prescribed treatment plan reviewed, including non-pharmacological and non-opioid treatment modalities? Yes Have any complications or exacerbations of the underlying condition causing the pain been reviewed? Yes How much does pain impede patient?s ability to engage in work or other purposeful activities, interfere with your activities of daily living, physical activity, or quality of your family life and social activities? Significantly Aberrancies in pain panel? No Any aberrant drug related behaviors since last visit? No Rationale for continuing opioid treatment: Improved comfort and function based on an ongoing functional assessment Benefits of Opioid Therapy outweigh risks: Yes Prescribed Morphine Equivalent Daily Dose (MEDD): Yes > 50 MEDD Yes, I am certified in Hospice and Palliative Care, Hematology, Medical Oncology or Pain Medicine OARRS Checked: PDMP website checked and validated. All prescriptions have been APPROPRIATELY filled. No suspicious activity was identified. 04/23/2022 by Juan Francisco Hutchinson APRN.CLINICAL TRIAL DATA MANAGER Urine Screen Lab Results Component Value Date UAMPH Negative 02/24/2021 UBARB2 Negative 02/24/2021 UBENZ Negative 02/24/2021 UQBUPRE <20 01/25/2022 UQNOR (more content not included)... Normal [facility] CNPNon 04-20-2022 CNPN Telephone (RADTMN) CELSO POTTS ([id number]) 1980 F TRN Date Time Provider Department 04/20/22 MAYE ELDER During your visit today, we recorded the following information about you: Maye Elder RN 04/20/2022 2:58 PM Signed RADIATION POST TREATMENT CALL BACK Today's date: April 20, 2022 Patient's final treatment on 04/06/2022. Treatment site right mesenteric LN Called patient to follow-up on symptom management and follow-up appointments. No answer. I left a message on her voicemail along with my contact information for any questions or concerns. Follow up appointment: Reminded patient of virtual visit on 05/18/2022 with Estrada Del Valle M.D. Maye MUELLER, RN Allergies As of Date: 04/20/2022 Noted Allergy Reaction CHLORHEXIDINE 03/11/2013 9 - Itching Comments: Severe skin irritation. Had used for central line care SULFA (SULFONAMIDE ANTIBIOTICS) 01/07/2012 2 - Rash Date Reviewed: 04/10/2022 Reviewed by: Gertrudis Smith RN - Fully Assessed Reason for Visit: Post Radiation Treatment Follow Up [[id number]] Prescriptions as of 04/20/2022 - cyclobenzaprine (FLEXERIL) 10 mg tablet Take 1 tablet by mouth three times daily as needed. - LORazepam (ATIVAN) 0.5 mg take 1 tablet twice a day if needed and take 1 to 2 tablets by mouth at bedtime if needed - oxyCODONE IR (ROXICODONE) 10 mg tab Take 1 tablet by mouth every 4 hours as needed (moderate-severe cancer pain) for up to 30 days. - baclofen (LIORESAL) 5 mg tablet Take 1 tablet by mouth three times daily. - prochlorperazine (COMPAZINE) 10 mg tablet Take 1 tablet by mouth every 6 hours as needed. - gabapentin (NEURONTIN) 300 mg capsule Take 2 capsules by mouth three times daily for 180 days. - tretinoin (RETIN-A) 0.05 % cream Apply a pea size amount to affected area every other night for 2 weeks then increase to daily as tolerated - doxycycline monohydrate (MONODOX) 100 mg capsule Take 1 capsule by mouth once daily. - prochlorperazine (COMPAZINE) 10 mg tablet Take 1 tablet by mouth every 6 hours as needed. - XARELTO 10 mg tablet take 1 tablet by mouth once daily - SPIRIVA RESPIMAT 2.5 mcg/actuation inhaler INHALE 2 PUFFS DIRECTED ONCE DAILY - albuterol HFA (VENTOLIN HFA) 90 mcg/actuation inhaler Inhale 2 Puffs as instructed every 4 hours as needed for wheezing/shortness of breath. - acyclovir (ZOVIRAX) 400 mg tablet take 1 tablet by mouth twice a day - hydrOXYzine HCl (ATARAX) 25 mg tablet Take 1 tablet by mouth three times daily as needed. Prescribed by PCP - fluocinonide (LIDEX) 0.05 % cream apply to affected area ON THE RIGHT HAND and legs TWICE A DAY - chlorhexidine (HIBICLENS) 4 % external liquid In groin as a wash - Clindamycin Phosphate (CLEOCIN T) 1 % lotion To groin daily - naloxone 4 mg/actuation nasal spray (NARCAN) Use 1 spray in one nostril as needed for overdose. May repeat every 2 to 3 min in alternating nostrils until medical assistance is available - levothyroxine (SYNTHROID) 75 mcg tablet Take 1 tablet by mouth once daily. - albuterol (PROVENTIL) 2.5 mg /3 mL (0.083 %) nebulizer solution inhale contents of 1 vial ( 3 milliliters ) in nebulizer by mouth... (REFER TO PRESCRIPTION NOTES). - triamcinolone acetonide (KENALOG) 0.1 % ointment APPLY TO THE AFFECTED AREA TWICE A DAY FOR 5 DAYS - traZODone (DESYREL) 50 mg tablet Take 100 mg by mouth daily at bedtime. - Vitamin B Comp and C No.3 (B COMPLEX PLUS VITAMIN C) 69-84-88-5-300 mg cap Take 1 tablet by mouth once daily. - Dexlansoprazole (DEXILANT) 30 mg CpDM Take 1 capsule by mouth once daily. - Lactobac no.41/Bifidobact no.7 (PROBIOTIC-10 ORAL) Take by mouth. - atenolol (TENORMIN) 50 mg tablet take 1 tablet by mouth twice a day - CHOLECALCIFEROL, VITAMIN D3, (VITAMIN D3 ORAL) Take 1,000 Units by mouth once daily. - acetaminophen (TYLENOL) 325 mg tablet Take 1-2 tablets by mouth every 4 hours as needed (not to exceed 2000 mg in a 24 hour period). Facility-Administered Medications as of 04/20/2022 - perflutren lipid microspheres 1.3 mL in NaCl (PF) 0.9% 10 mL injection (DEFINITY) - sodium chloride 0.9 % (flush) 10 mL (BD POSIFLUSH) Meds Comments as of 04/02/2013: stop lovanox 24hours prior to surgery last Saturday11/01/12 -pt notes she is taking a control pill, unsure of name, states it changes everytime. states she will be off of it soon. Problem List As Of Date 04/20/2022 Noted Resolved Hodgkin's disease, unspecified [C81.90] 02/05/2012 05/11/2014 Pulmonary embolism (HCC) [I26.99] 05/27/2012 Hodgkin's disease with nodular sclerosis [C81.1*05/27/2012 12/26/2015 DISPOSITION AND FOLLOW-UP [V999.01] 10/27/2012 12/26/2015 Post-op pain [G89.18] 10/27/2012 12/26/2015 Electrolyte and fluid disorders not elsewhere c*02/16/2013 12/26/2015 Peripheral neuropathy [G62.9] 03/16/2013 12/26/2015 DVT prophylaxis [Z79.899 (more content not included)... 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 (age at diagnosis 31YOF, ESR normal, WBC, Hgb, Lymph and alb normal) Previous Treatment: ABVD started on 02/11/2012 x 12 doses progressed to month after stopping treatment ICE x3 progressed after stopping treatment 3 cycles of Brentuximab Vedotin (Adcetris) followed by Auto BMT high-dose busulfan, etoposide, and cyclophosphamide with autologous hematopoietic progenitor cell transplantation in 02/2013 45 Gy in 25 fx was delivered to the mediastinal/hilar/left SC faustina regions using 6 MV photons from 07/27/2013 ? 08/31/2013. Brentuximab Vedotin (Adcetris) Started 02/04/2014 stopped to neuropathy Nivolumab (Opdivo) started Nov 18 2014 stopped 2019 Ibrutinib started early 2019. Ordered April 22, 2019 stopped oct AREA TREATED: right mesenteric LN COURSE: definitive CURRENT DOSE: 2400 cGy in 03 fx PLANNED DOSE: 2400 cGy in 03 fx Current Treatment: Pembrolizumab 200 mg every 3 weeks started on November 09, 2019 Palliative radiation to be done end of March 2020 secondary to mild progression and continue pembrolizumab after HPI: This is a 40 year old female with no significant PMH presented in August [address] in the neck and left axillary area. She was treated with multiple courses of IV antibiotics without improvement. + B symptoms (fever, drenching night sweats but no wt. loss) and itching rash in the lower exts. Left Axillary LN excisional biopsy: Nodular sclerosis classical Hodgkin lymphoma Feb [address]: IMPRESSION: FINDINGS COMPATIBLE WITH MILD RIGHT CERVICAL AND LEFT ANTERIOR SUBDIAPHRAGMATIC ADENOPATHY, MODERATE TO SEVERE HYPERMETABOLIC BILATERAL AXILLARY AND SUPRACLAVICULAR (LEFT GREATER THAN RIGHT), SUPERIOR MEDIASTINAL, RIGHT PARATRACHEAL, AND ANTERIOR MEDIASTINAL ADENOPATHY. FINDINGS SUSPICIOUS OF HYPERMETABOLIC SPLENIC LYMPHOMATOUS INVOLVEMENT. Bone Marrow Bx was negative incidental finding of pulmonary embolism on CT chest. Patient was started on Lovenox on May 27, 2012 Relapsed S/P 3 cycles of ICE with progression, S/P Brentuximab Vedotin (Adcetris) and Auto BMT Radiation to the chest complicated with Radiation pneumonitis Brentuximab Vedotin (Adcetris) stopped 2nd to grade III pneumonitis She saw Dr. Alejandro sarmiento at [facility] for 2nd opinion cell([id number]) She agreed with out plan and recommended repeat of her PET and if progressed either Opdivo vs clinical trial March 02, 2018 CT chest abdomen and pelvis mild progression of the lymph nodes in the abdomen and pelvis. PET scan was recommended Early 2018 patient was diagnosed with psoriasis (multiple 1-2 cm spots on her extremities). Patient stated rash started when we changed to every 4 weeks dosing. We'll resume every 2 weeks dosing and psoriasis is better to stable 03/13/2019 PET scan showed progression IMPRESSION: 1. NECK: * No FDG avid neoplastic process. 2. CHEST:* No FDG avid neoplastic process. 3. ABDOMEN/PELVIS:* Interval progression of retroperitoneal faustina metastatic disease with increase in size and FDG avidity of nodes/conglomerate masses in the upper abdomen since 03/08/2017. * Development of new FDG avid hepatic metastases in segments II and IVb. * FDG avid splenic lesion has increased in size and relative FDG avidity since the prior exam. 4. EXTREMITIES/SKELETON: No suspicious FDG avid osseous lesion. Deauville score: 5 Ibrutinib was orderef on 04/22/2019 PET scan October 2019 showed disease progression. Ibrutinib was stopped. Pembrolizumab was started in October 2019 PET scan March 2020 mild disease progression Palliative radiation was recommended April 2020 Palliative radiation to the spleen, liver and lymph node at main campus PET showed progression early 2022March 2019 AREA TREATED: right mesenteric LN COURSE: definitive CURRENT DOSE: 2400 cGy in 03 fx PLANNED DOSE: 2400 cGy in 03 fx Interval history: Patient is here for follow-up on above diagnosis. She had radiation last week and tolerated it well except for nausea otherwise no change in her symptoms and has been doing Denies any fever, night sweats or weight loss. Her symptoms are stable PAST MEDICAL HISTORY: History of tachycardia treated with atenolol, pulmonary embolism incidentally found on restaging CT (May 27, 2012). relapsed Hodgkin lymphoma, PJP pneumonia, peripheral neuropathy, radiation pneumonitis PAST SURGICAL H (more content not included)... Normal [facility] CBC W Auto Differential pane l (Bld)on 04-06-2022 Basophils (Bld) [#/Vol] 0.03 10*3/uL Normal <0.11 [facility] Comment on above: Order Comment: Speci men Type: BLOOD SPECIMENOrdering Facility: [facility] Address: [address] [place] [address] Performed By: #### 5 7021-8 ####[facility] [id number] [place] [address] [place] Basophils/100 WBC (Bld) 0.5 % Normal [facility] Comment on above: Order Comment: Speci men Type: BLOOD SPECIMENOrdering Facility: [facility] Address: [address] [place] [address] Performed By: #### 5 7021-8 ####[facility] [id number] [place] [address] [place] Differential cell count method Nom (Bld) Auto Normal [facility] Comment on above: Order Comment: Speci men Type: BLOOD SPECIMENOrdering Facility: [facility] Address: [address] [place] [address] Performed By: #### 5 7021-8 ####[facility] [id number] [place] [address] [place] Eosinophils (Bld) [#/Vol] 0.20 10*3/uL Normal <0.46 [facility] Comment on above: Order Comment: Speci men Type: BLOOD SPECIMENOrdering Facility: [facility] Address: [address] Performed By: #### 5 7021-8 ####[facility] [id number] [place] [address] [place] Eosinophils/100 WBC (Bld) 3.3 % Normal [facility] Comment on above: Order Comment: Speci men Type: BLOOD SPECIMENOrdering Facility: [facility] Address: [address] [place], [place] [address] Performed By: #### 5 7021-8 ####[facility] [id number] [place] [address] [place] Erythrocyte distribution width (RBC) [Ratio] 13.1 % Normal 11.5-15.0 [facility] Comment on above: Order Comment: Speci men Type: BLOOD SPECIMENOrdering Facility: [facility] Address: [address] [place], [place] [address] Performed By: #### 5 7021-8 ####[facility] [id number] [place] [address] [place] Hematocrit (Bld) [Volume fraction] 47.7 % High 36.0-46.0 [facility] Comment on above: Order Comment: Speci men Type: BLOOD SPECIMENOrdering Facility: [facility] Address: [address] [place], [place] [address] Performed By: #### 5 7021-8 ####[facility] [id number] [place] [address] [place] Hemoglobin (Bld) [Mass/Vol] 15.8 g/dL High 11.5-15.5 [facility] Comment on above: Order Comment: Speci men Type: BLOOD SPECIMENOrdering Facility: [facility] Address: [address] Performed By: #### 5 7021-8 ####[facility] [id number] [place], [place] [id number] [place] Immature granulocytes (Bld) [#/Vol] 10*3/uL Normal <0.10 [facility] Comment on above: Order Comment: Speci men Type: BLOOD SPECIMENOrdering Facility: [facility] Address: [address] [place] [address] Performed By: #### 5 7021-8 ####[facility] [id number] [place] [address] [place] Immature granulocytes/100 WBC (Bld) 0.3 % Normal [facility] Comment on above: Order Comment: Speci men Type: BLOOD SPECIMENOrdering Facility: [facility] Address: [address] [place] [address] Performed By: #### 5 7021-8 ####[facility] [id number] [place] [address] [place] Lymphocytes (Bld) [#/Vol] 1.61 10*3/uL Normal 1.00-4.00 [facility] Comment on above: Order Comment: Speci men Type: BLOOD SPECIMENOrdering Facility: [facility] Address: [address] [place] [address] Performed By: #### 5 7021-8 ####[facility] [id number] [place] [address] OF [facility] Lymphocytes/100 WBC (Bld) 26.5 % Normal [facility] Comment on above: Order Comment: Speci men Type: BLOOD SPECIMENOrdering Facility: [facility] Address: [address] [place] [address] Performed By: #### 5 7021-8 ####[facility] [id number] [place] [address] [place] MCH (RBC) [Entitic mass] 31.3 pg Normal 26.0-34.0 [facility] Comment on above: Order Comment: Speci men Type: BLOOD SPECIMENOrdering Facility: [facility] Address: [address] [address] Performed By: #### 5 7021-8 ####[facility] [id number] [place] [address] MCHC (RBC) [Mass/Vol] 33.1 g/dL Normal 30.5-36.0 [facility] Comment on above: Order Comment: Speci men Type: BLOOD SPECIMENOrdering Facility: [facility] Address: [address] [place] [address] Performed By: #### 5 7021-8 ####[facility] [id number] [place] [address] [place] MCV (RBC) [Entitic vol] 94.5 fL Normal 80.0-100.0 [facility] Comment on above: Order Comment: Speci men Type: BLOOD SPECIMENOrdering Facility: [facility] Address: [address] [place], [place] [address] Performed By: #### 5 7021-8 ####[facility] [id number] [place] [address] [place] Monocytes (Bld) [#/Vol] 0.62 10*3/uL Normal <0.87 [facility] Comment on above: Order Comment: Speci men Type: BLOOD SPECIMENOrdering Facility: [facility] Address: [address] [place], [place] [address] Performed By: #### 5 7021-8 ####[facility] [id number] [address] STATES [facility] Monocytes/100 WBC (Bld) 10.2 % Normal [facility] Comment on above: Order Comment: Speci men Type: BLOOD SPECIMENOrdering Facility: [facility] Address: [address] [place], [place] [address] Performed By: #### 5 7021-8 ####[facility] [id number] [place] [address] [place] Neutrophils (Bld) [#/Vol] 3.59 10*3/uL Normal 1.45-7.50 [facility] Comment on above: Order Comment: Speci men Type: BLOOD SPECIMENOrdering Facility: [facility] Address: [address] [place] [address] Performed By: #### 5 7021-8 ####[facility] [id number] [place] [address] [place] Neutrophils/100 WBC (Bld) 59.2 % Normal [facility] Comment on above: Order Comment: Speci men Type: BLOOD SPECIMENOrdering Facility: [facility] Address: [address] [place] [address] Performed By: #### 5 7021-8 ####[facility] [id number] [place] [address] [place] Nucleated RBC (Bld) [#/Vol] 10*3/uL Normal <0.01 [facility] Comment on above: Order Comment: Speci men Type: BLOOD SPECIMENOrdering Facility: [facility] Address: [address] [place] [address] Performed By: #### 5 7021-8 ####[facility] [id number] [place] [address] [place] Nucleated RBC/100 WBC (Bld) [Ratio] 0.0 /100 WBC Normal [facility] Comment on above: Order Comment: Speci men Type: BLOOD SPECIMENOrdering Facility: [facility] Address: [address] [place] [address] Performed By: #### 5 7021-8 ####[facility] [id number] [place] [address] [place] Platelet mean volume (Bld) [Entitic vol] 8.6 fL Low 9.0-12.7 [facility] Comment on above: Order Comment: Speci men Type: BLOOD SPECIMENOrdering Facility: [facility] Address: [address] [place] [address] Performed By: #### 5 7021-8 ####[facility] [id number] [place] [address] [place] [facility] [place] Platelets (Bld) [#/Vol] 278 10*3/uL Normal 150-400 [facility] Comment on above: Order Comment: Speci men Type: BLOOD SPECIMENOrdering Facility: [facility] Address: [address] [place] [address] Performed By: #### 5 7021-8 ####[facility] [id number] [address] STATES OF [facility] RBC (Bld) [#/Vol] 5.05 10*6/uL Normal 3.90-5.20 [facility] Comment on above: Order Comment: Speci men Type: BLOOD SPECIMENOrdering Facility: [facility] Address: [address] [place] [address] Performed By: #### 5 7021-8 ####[facility] [id number] [address] OF [facility] WBC (Bld) [#/Vol] 6.07 10*3/uL Normal 3.70-11.00 [facility] Comment on above: Order Comment: Speci men Type: BLOOD SPECIMENOrdering Facility: [facility] Address: [address] [place] [address] Performed By: #### 5 7021-8 ####[facility] [id number] [place] [address] CNOVon 04-06-2022 CNOV Office Visit (RADTMN ) CELSO POTTS ([id number]) 1980 F TRN Date Time Provider Department 04/06/22 10:40 AM ESTRADA DEL VALLE During your visit today, we recorded the following information about you: Temperature Pulse Respiration Blood pressure 98.1 degrees 100/minute 21/minute 111/78 Weight 107.8 kg Florentin Vail MA 04/06/2022 11:42 AM Signed Patient states there is no possibility of at this time. Estrada Del Valle MD 04/15/2022 4:18 PM Signed Radiation Oncology - On Treatment Review (OTR) Note PATIENT NAME: Celso Potts PATIENT DIAGNOSIS: Relapsed refractory Hodgkins Lymphoma (sites of active disease liver, spleen and RP nodes). Currently on Pembrolizumab 200 mg every 3 weeks started on November 09, 2019. For consideration of palliative RT to sites of active disease. S/p The Spleen Liver RP Node PTV received a total dose of 2000 cGy in 5 fractions at 400 cGy/fraction prescribed to PTV mean at 96.0% IDL using 10 MV photons with VMAT Coplanar technique. RT completed on 04/25/2020. Now has oligo progression in a single right upper mesentric LN. For abdominal re-irradiation using SBRT, 24gy/3fx. AREA TREATED: right mesenteric LN COURSE: definitive CURRENT DOSE: 2400 cGy in 03 fx PLANNED DOSE: 2400 cGy in 03 fx SUBJECTIVE: Celso Potts presents for OTR visit after 3 fx's. She reports some mild fatigue but no other bothersome side effects. Toxicity Fatigue - Grade 1 EXAM: KPS: 90 General Appearance: Alert and oriented. No acute distress. Radiation Dermatitis: No IMAGING/LAB RESULTS: None ASSESSMENT/PLAN: Clinically stable. Toxicity within expected parameters. The patient has completed radiotherapy and will be seen in follow-up in 6 weeks. Acute and delayed side effects reviewed. Evy Patricio MD Radiation Oncology Resident (PGY-5) [id number] I have personally participated in the osorio components of the case and agree with the above findings: Treatment chart checked: YES Patient treatment site reviewed and verified: YES Setup images reviewed and current: YES Signed by: Estrada Del Valle MD Allergies As of Date: 04/06/2022 Noted Allergy Reaction CHLORHEXIDINE 03/11/2013 9 - Itching Comments: Severe skin irritation. 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 - baclofen (LIORESAL) 5 mg tablet Take 1 tablet by mouth three times daily. - prochlorperazine (COMPAZINE) 10 mg tablet Take 1 tablet by mouth every 6 hours as needed. - gabapentin (NEURONTIN) 300 mg capsule Take 2 capsules by mouth three times daily for 180 days. - tretinoin (RETIN-A) 0.05 % cream Apply a pea size amount to affected area every other night for 2 weeks then increase to daily as tolerated - doxycycline monohydrate (MONODOX) 100 mg capsule Take 1 capsule by mouth once daily. - prochlorperazine (COMPAZINE) 10 mg tablet Take 1 tablet by mouth every 6 hours as needed. - XARELTO 10 mg tablet take 1 tablet by mouth once daily - SPIRIVA RESPIMAT 2.5 mcg/actuation inhaler INHALE 2 PUFFS DIRECTED ONCE DAILY - albuterol HFA (VENTOLIN HFA) 90 mcg/actuation inhaler Inhale 2 Puffs as instructed every 4 hours as needed for wheezing/shortness of breath. - acyclovir (ZOVIRAX) 400 mg tablet take 1 tablet by mouth twice a day - hydrOXYzine HCl (ATARAX) 25 mg tablet Take 1 tablet by mouth three times daily as needed. Prescribed by PCP - fluocinonide (LIDEX) 0.05 % cream apply to affected area ON THE RIGHT HAND and legs TWICE A DAY - chlorhexidine (HIBICLENS) 4 % external liquid In groin as a wash - Clindamycin Phosphate (CLEOCIN T) 1 % lotion To groin daily - naloxone 4 mg/actuation nasal spray (NARCAN) Use 1 spray in one nostril as needed for overdose. May repeat every 2 to 3 min in alternating nostrils until medical assistance is available - levothyroxine (SYNTHROID) 75 mcg tablet Take 1 tablet by mouth once daily. - albuterol (PROVENTIL) 2.5 mg /3 mL (0.083 %) nebulizer solution inhale contents of 1 vial ( 3 milliliters ) in nebulizer by mouth... (REFER TO PRESCRIPTION NOTES). - triamcinolone acetonide (KENALOG) 0.1 % ointment APPLY TO THE AFFECTED AREA TWICE A DAY FOR 5 DAYS - traZODone (DESYREL) 50 mg tablet Take 100 mg by mouth daily at bedtime. - Vitamin B Comp and C No.3 (B COMPLEX PLUS VITAMIN C) 33-78-75-5-300 mg cap Take 1 tablet by mouth once daily. - Dexlansoprazole (DEXILANT) 30 mg CpDM Take 1 capsule by mouth once daily. - Lactobac no.41/Bifido (more content not included)... Normal [facility] Comprehensive metabolic 2000 panelon 04-06-2022 Albumin [Mass/Vol] 4.1 g/dL Normal 3.9-4.9 [facility] Comment on above: Order Comment: Speci men Type: BLOOD SPECIMENOrdering Facility: [facility] Address: [address] [address] Performed By: #### 2 4323-8 ####[facility] [id number] [place] [address] [place] ALP [Catalytic activity/Vol] 71 U/L Normal 34-123 [facility] Comment on above: Order Comment: Speci men Type: BLOOD SPECIMENOrdering Facility: [facility] Address: [address] [address] Performed By: #### 2 4323-8 ####[facility] [id number] [place] [address] [place] ALT [Catalytic activity/Vol] 66 U/L High 7-38 [facility] Comment on above: Order Comment: Speci men Type: BLOOD SPECIMENOrdering Facility: [facility] Address: [address] [address] Performed By: #### 2 4323-8 ####[facility] [id number] [place] [address] [place] Anion gap [Moles/Vol] 7 mmol/L Low 9-18 [facility] Comment on above: Order Comment: Speci men Type: BLOOD SPECIMENOrdering Facility: [facility] Address: [address] [address] Performed By: #### 2 4323-8 ####[facility] [id number] [place] [address] [place] AST [Catalytic activity/Vol] 61 U/L High 13-35 [facility] Comment on above: Order Comment: Speci men Type: BLOOD SPECIMENOrdering Facility: [facility] Address: [address] [address] Performed By: #### 2 4323-8 ####[facility] [id number] [place] [address] [place] Bilirubin [Mass/Vol] 0.3 mg/dL Normal 0.2-1.3 [facility] Comment on above: Order Comment: Speci men Type: BLOOD SPECIMENOrdering Facility: [facility] Address: [address] Performed By: #### 2 4323-8 ####[facility] [id number] [place] [address] [place] Calcium [Mass/Vol] 9.7 mg/dL Normal 8.5-10.2 [facility] Comment on above: Order Comment: Speci men Type: BLOOD SPECIMENOrdering Facility: [facility] Address: [address] Performed By: #### 2 4323-8 ####[facility] [id number] [place] Chloride [Moles/Vol] 103 mmol/L Normal 97-105 [facility] Comment on above: Order Comment: Speci men Type: BLOOD SPECIMENOrdering Facility: [facility] Address: [address] [place] [address] Performed By: #### 2 4323-8 ####[facility] [id number] [place] [address] [place] CO2 [Moles/Vol] 30 mmol/L Normal 22-30 [facility] Comment on above: Order Comment: Speci men Type: BLOOD SPECIMENOrdering Facility: [facility] Address: [address] [place] [address] Performed By: #### 2 4323-8 ####[facility] [id number] [place] [address] OF [facility] Creatinine [Mass/Vol] 0.73 mg/dL Normal 0.58-0.96 [facility] Comment on above: Order Comment: Speci men Type: BLOOD SPECIMENOrdering Facility: [facility] Address: [address] [place] [address] Performed By: #### 2 4323-8 ####[facility] [id number] [address] ESTIMATED GLOMERULAR FILTRATION RATE 107 mL/min/1.73m??? Normal >=60 [facility] Comment on above: Order Comment: Speci men Type: BLOOD SPECIMENOrdering Facility: [facility] Address: [address] [place] [address] Result Comment: Purnima mated Glomerular Filtration Rate (eGFR) is calculated using the 2020 CKD-EPI creatinine equation. This equation utilizes serum creatinine, sex, and age as parameters. The creatinine assay has traceable calibration to isotope dilution-mass spectrometry. Refer to KDIGO guidelines for clinical interpretation. In patients with unstable renal function, e.g. those with acute kidney injury, the eGFR may not accurately reflect actual GFR. Performed By: #### 2 4323-8 ####[facility] [id number] [place] [address] [place] Glucose [Mass/Vol] 103 mg/dL High 74-99 [facility] Comment on above: Order Comment: Speci men Type: BLOOD SPECIMENOrdering Facility: [facility] Address: [address] [place] [address] Result Comment: The [place] Diabetes Association (ADA) provides guidance for cutoff values for fasting glucose and random glucose. The ADA defines fasting as no caloric intake for at least 8 hours. Fasting plasma glucose results between 100 to 125 mg/dL indicate increased risk for diabetes (prediabetes). Fasting plasma glucose results greater than or equal to 126 mg/dL meet the criteria for diagnosis of diabetes. In the absence of unequivocal hyperglycemia, results should be confirmed by repeat testing. In a patient with classic symptoms of hyperglycemia or hyperglycemic crisis, random plasma glucose results greater than or equal to 200 mg/dL meet the criteria for diagnosis of diabetes. Reference: Standards of Medical Care in Diabetes 2016, [place] Diabetes Association. Diabetes Care. 2016.39(Suppl 1). Performed By: #### 2 4323-8 ####[facility] [id number] [place] [address] [place] Potassium [Moles/Vol] 4.8 mmol/L Normal 3.7-5.1 [facility] Comment on above: Order Comment: Speci men Type: BLOOD SPECIMENOrdering Facility: [facility] Address: [address] [address] Performed By: #### 2 4323-8 ####[facility] [id number] [place] [address] [place] Protein [Mass/Vol] 7.4 g/dL Normal 6.3-8.0 [facility] Comment on above: Order Comment: Speci men Type: BLOOD SPECIMENOrdering Facility: [facility] Address: [address] [place] [address] Performed By: #### 2 4323-8 ####[facility] [id number] [place] [address] [place] Sodium [Moles/Vol] 140 mmol/L Normal 136-144 [facility] Comment on above: Order Comment: Speci men Type: BLOOD SPECIMENOrdering Facility: [facility] Address: [address] [place] [address] Performed By: #### 2 4323-8 ####[facility] [id number] [place] [address] [place] Urea nitrogen [Mass/Vol] 13 mg/dL Normal 7-21 [facility] Comment on above: Order Comment: Speci men Type: BLOOD SPECIMENOrdering Facility: [facility] Address: [address] [place] [address] Performed By: #### 2 4323-8 ####[facility] [id number] [place] [address] [place] Cortis SerPl-mCncon 04-06-19 23 Cortisol [Mass/Vol] 5.4 ug/dL Normal 4.8-19.5 [facility] Comment on above: Order Comment: Speci men Type: BLOOD SPECIMENOrdering Facility: [facility] Address: [address] [place] [address] Result Comment: Prov ided reference range is from 6-10 AM sample collection time. Cortisol Reference Range: 6-10 AM = 4.8-19.5 ug/dL, 4-8 PM = 2.5-11.9 ug/dL Performed By: #### 3 024-7, 3016-3, 2143-6 ####[facility] [id number] [place] [address] [place] T4 Free SerPl-mCncon 023 Free T4 [Mass/Vol] 1.1 ng/dL Normal 0.9-1.7 [facility] Comment on above: Order Comment: Speci men Type: BLOOD SPECIMENOrdering Facility: [facility] Address: [place] Performed By: #### 3 024-7, 3016-3, 3-6 ####[facility] [id number] [address] STATES OF [facility] TSH SerPl-aCncon 04-06-2022 TSH Qn 2.140 m[IU]/L Normal 0.270-4.200 [facility] Comment on above: Order Comment: Nicole toribio Type: BLOOD SPECIMENOrdering Facility: [facility] Address: [place] [address] Result Comment: If t he patient is , TSH reference range varies by gestational period: First Trimester (weeks 9-12): 0.180-2.990 mIU/L Second Trimester: 0.110-3.980 mIU/L Third Trimester: 0.480-4.710 mIU/L Samuel Patel et al. A Practical Approach for the Verifications and Determination of Site- and Trimester-Specific Reference Intervals for Thyroid Function tests in . Thyroid, 2019:29:3:412-420. Mirza E, et al. 2017 Guidelines of the [place] Thyroid Association for the Diagnosis and Management of Thyroid Disease during and the . Thyroid, 2017:27:3:315-389. Performed By: #### 3 024-7, 3016-3, 3-6 ####[facility] [id number] [place] [id number] [facility] CNOVon 01-25-2022 CNOV Office Visit (CNFVM) CELSO POTTS ([id number]) 1980 F TRN Date Time Provider Department 01/25/22 2:30 PM JUAN FRANCISCO HUTCHINSON During your visit today, we recorded the following information about you: Temperature Pulse Blood pressure Weight 98.6 degrees 109/minute 115/67 106.8 kg Juan Francisco Hutchinson APRN.CNP 01/25/2022 4:28 PM Signed PALLIATIVE MEDICINE PROGRESS NOTE SERVICE DATE: 01/25/2022 Primary Site of Disease/Medical Illness: Hodgkin Lymphoma Site of Metastasis: Liver, Lymph nodes, Spleen CHIEF COMPLAINT: pain, follow up PERTINENT MEDICAL HISTORY: Celso Potts is a 41 yo female with Hodgkin's Lymphoma diagnosed 01/16/2012 s/p autologous SCT (2013) and several other treatments due to recurrences in that time. She has undergone palliative radiation to spleen, liver, and lymph nodes per Dr. Del Valle. She is currently treated with Keytruda per Dr. Abimael Ramires. Course has been c/b pulmonary embolus (on AC). Palliative care is following for symptom control needs. Subjective Last pall care visit 10/26/21 Presents today alone. Reports feeling at her baseline and pretty well. Reports her generalized pain and muscle cramps are very controlled allowing her to be as active as possible. She continues to take the baclofen, cyclobenzaprine, and oxycodone as prescribed without confusion, oversedation, myoclonus. She is worried about weight gain and states she joined a gym on Saturday of this week and has attended Saturday and and walked on the treadmill. She will be meeting with a customer service trainer to better understand the equipment upcoming. Has had some nausea since starting doxy for acne. Responsive to Compazine. Modified ESAS ([place] Symptom Assessment Scale) Information Provided By: Patient Pain: Mild Nausea: Mild Loss of Appetite: None Constipation: None Shortness of Breath: None Drowsiness: None Tiredness: None Depression: None Anxiety: Mild How you feel overall: Good Objective ECOG PERFORMANCE STATUS: 0- Fully active, able to carry on all pre-disease performance w/o restriction. PHYSICAL EXAMINATION: Vital signs: BP 115/67 Pulse 109 Temp 37 ?C (98.6 ?F) (Oral) Wt 106.8 kg (235 lb 8 oz) LMP 11/18/2012 SpO2 96% BMI 32.61 kg/m? Last 1 Encounter Temp Readings: Date: Temp: Temp Src: 01/18/2022 36.1 ?C (96.9 ?F) Temporal Last 1 Encounter Resp Readings: Date: Resp: 12/06/2021 18 Last 1 Encounter Pulse Readings: Date: Pulse: 01/18/2022 108 Last 1 Encounter BP Readings: Date: BP: 01/18/2022 125/86 General Appearance: No apparent distress and Overweight Skin: No jaundice, No rash, and No breakdown Lungs: unlabored effort Musculoskeletal: No edema and No gross deformity Neuro: Alert and oriented to time place and person and gait normal Psych: Well groomed, Affect congruent with mood, and Good eye contact DATA: Diagnostic tests reviewed for today's visit: Most recent labs and imaging results. Estimated Creatinine Clearance: 142.4 mL/min (based on SCr of 0.71 mg/dL). Opioid Management: Yes Indication for Opioid Prescribing: Cancer related pain ORT-OUD Score: 1 A score of 3 or higher may indicate a higher risk for future development of aberrant drug related behavior or opioid use disorder. Informed consent for chronic opiate therapy obtained and written pain agreement: On file Naloxone offered?: Previously prescribed Course of treatment, patient's response and adherence to the prescribed treatment plan reviewed, including non-pharmacological and non-opioid treatment modalities? Yes Have any complications or exacerbations of the underlying condition causing the pain been reviewed? Yes How much does pain impede patient?s ability to engage in work or other purposeful activities, interfere with your activities of daily living, physical activity, or quality of your family life and social activities? Significantly Aberrancies in pain panel? Pending Any aberrant drug related behaviors since last visit? No Rationale for continuing opioid treatment: Improved comfort and function based on an ongoing functional assessment Benefits of Opioid Therapy outweigh risks: Yes Prescribed Morphine Equivalent Daily Dose (MEDD): Yes > 50 MEDD Yes, I am certified in Hospice and Palliative Care, Hematology, Medical Oncology or Pain Medicine OARRS Checked: PDMP website checked and validated. All prescriptions have been APPROPRIATELY filled. No suspicious activity was identified. 01/25/2022 by Juan Francisco Hutchinson APRN.CLINICAL TRIAL DATA MANAGER Urine Screen Lab Results Component Value Date UAMPH Negative 02/24/2021 UBARB2 Negative 02/24/2021 UBENZ Negative 02/24/2021 UQBUPRE <20 02/24/2021 UQNORBUP <20 02/24/2021 UCOC2 Negative 02/24/2021 UQCANN <16 02/24/2021 UOPI Negative 02/24/2021 UOXYC Negative 02/24/2021 UPCP Negative 02/24/2021 UTHC Negative 02/24/2021 UETOH <11 0 (more content not included)... Normal [facility] PAIN PANEL, UR QUANTon 01-25 6-Ysqqyyhbyd-4,5-Di methyl-3,3-Diphenyl pyrrolidine (EDDP) Confirm (U) [Mass/Vol] <6 Normal <6 [facility] Comment on above: Order Comment: Speci men Type: URINE SPECIMEN [facility] Address: [address] [place] [address] Result Comment: EDDP is a metabolite of methadone. Performed By: #### L [id number] #### [facility] CLIA [id number] [address] [place] [address] [place] 6-Monoacetylmorphin e (6-BERNIE) (U) [Mass/Vol] <5 Normal <5 [facility] Comment on above: Order Comment: Speci men Type: URINE SPECIMEN [facility] Address: [address] [place] [address] Result Comment: 6-MA M (6-monoacetylmorphine, also known as 6-acetylmorphine) is a unique metabolite of heroin. Presence of 6-BERNIE indicates use of heroin. 6-BERNIE is further metabolized to morphine and absence of 6-BERNIE does not rule out the use of heroin. Performed By: #### L [id number] #### [facility] CLIA [id number] [address] [place] [address] [place] Amphetamine Confirm (U) [Mass/Vol] <5 Normal <5 [facility] Comment on above: Order Comment: Speci men Type: URINE SPECIMEN [facility] Address: [address] [place] [address] Performed By: #### L [id number] #### [facility] CLIA [id number] [address] [place] Benzoylecgonine Confirm (U) [Mass/Vol] <24 Normal <24 [facility] Comment on above: Order Comment: Speci men Type: URINE SPECIMEN [facility] Address: [address] [place] [address] Result Comment: Henry oylecgonine is a metabolite of cocaine. Performed By: #### L [id number] #### [facility] CLIA [id number] [address] [place] [address] [place] Buprenorphine (U) [Mass/Vol] <20 Normal <20 [facility] Comment on above: Order Comment: Speci men Type: URINE SPECIMEN [facility] Address: [address] [place] [address] Performed By: #### L [id number] #### [facility] CLIA [id number] [address] [place] [address] [place] Cannabinoids Confirm (U) [Mass/Vol] <16 Normal <16 [facility] Comment on above: Order Comment: Speci men Type: URINE SPECIMEN [facility] Address: [address] [place] [address] Result Comment: Tetr ahydrocannabinol carboxylic acid (THCA) is a metabolite of brfzn-6-pitenaaylyukpwcgpphj which is the main active component of marijuana. Performed By: #### L [id number] #### [facility] CLIA [id number] [address] [place] [address] [place] Codeine Confirm (U) [Mass/Vol] <11 Normal <11 [facility] Comment on above: Order Comment: Speci men Type: URINE SPECIMEN [facility] Address: [address] [place] [address] Performed By: #### L [id number] #### [facility] CLIA [id number] [address] [place] [address] [place] Dihydrocodeine Confirm (U) [Mass/Vol] <5 Normal <5 [facility] Comment on above: Order Comment: Speci men Type: URINE SPECIMEN [facility] Address: [address] [place] [address] Performed By: #### L [id number] #### [facility] CLIA [id number] [address] [place] fentaNYL Confirm (U) [Mass/Vol] <6 Normal <6 [facility] Comment on above: Order Comment: Speci men Type: URINE SPECIMEN [facility] Address: [address] [place] [address] Performed By: #### L [id number] #### [facility] CLIA [id number] [address] [place] [address] HYDROcodone Confirm (U) [Mass/Vol] <8 Normal <8 [facility] Comment on above: Order Comment: Speci men Type: URINE SPECIMEN [facility] Address: [address] [place] [address] Result Comment: Hydr ocodone is a metabolite of dihydrocodeine. Performed By: #### L [id number] #### [facility] CLIA [id number] [address] [place] [address] [place] HYDROmorphone Confirm (U) [Mass/Vol] <5 Normal <5 [facility] Comment on above: Order Comment: Speci men Type: URINE SPECIMEN [facility] Address: [address] [place] [address] Result Comment: Hydr omorphone is a metabolite of hydrocodone. Performed By: #### L [id number] #### [facility] CLIA [id number] [address] [place] [address] [place] Methadone Confirm (U) [Mass/Vol] <16 Normal <16 [facility] Comment on above: Order Comment: Speci men Type: URINE SPECIMEN [facility] Address: [address] [address] Performed By: #### L [id number] #### [facility] CLIA [id number] [facility] Methamphetamine Confirm (U) [Mass/Vol] <8 Normal <8 [facility] Comment on above: Order Comment: Speci men Type: URINE SPECIMEN [facility] Address: [address] [address] Performed By: #### L [id number] #### [facility] CLIA [id number] [address] Morphine Confirm (U) [Mass/Vol] <10 Normal <10 [facility] Comment on above: Order Comment: Speci men Type: URINE SPECIMEN [facility] Address: [address] [place] [address] Result Comment: Morp majo is a metabolite of codeine and heroin. Performed By: #### L [id number] #### [facility] [place] [id number] [address] [place] [address] Norbuprenorphine (U) [Mass/Vol] <20 Normal <20 [facility] Comment on above: Order Comment: Speci men Type: URINE SPECIMEN [facility] Address: [address] [place] [address] Result Comment: Norb uprenorphine is the primary active metabolite of buprenorphine. Performed By: #### L [id number] #### [facility] CLIA [id number] [address] [place] [address] Norfentanyl Confirm (U) [Mass/Vol] <6 Normal <6 [facility] Comment on above: Order Comment: Speci men Type: URINE SPECIMEN [facility] Address: [address] [place] [address] Result Comment: Norf entanyl is a metabolite of fentanyl. Performed By: #### L [id number] #### [facility] CLIA [id number] [address] [place] [address] [place] Nortramadol (U) [Mass/Vol] <20 Normal <20 [facility] Comment on above: Order Comment: Speci men Type: URINE SPECIMEN [facility] Address: [address] [place] [address] Result Comment: Desm ethyltramadol is a metabolite of tramadol. Performed By: #### L [id number] #### [facility] CLIA [id number] [address] [place] [address] [place] NOTE,UR PAIN OCASIO Normal [facility] Comment on above: Order Comment: Speci men Type: URINE SPECIMEN [facility] Address: [address] [place] [address] Result Comment: This test is for medical use only. This test was developed and its performance characteristics determined by [facility] [place] ([facility]). It has not been cleared or approved by the FDA. [facility] is regulated under CLIA as qualified to perform high-complexity testing. This test is used for clinical purposes. It should not be regarded as investigational or for research. Performed By: #### L [id number] #### [facility] CLIA [id number] [address] [place] [address] [place] oxyCODONE Confirm (U) [Mass/Vol] 2574 ng/mL High <10 [facility] Comment on above: Order Comment: Speci men Type: URINE SPECIMEN [facility] Address: [address] [place] [address] Result Comment: Oxyc odone is not a recognized metabolite of other opiates and its presence indicates use of an oxycodone containing drug. Oxycodone is metabolized to oxymorphone. Performed By: #### L [id number] #### [facility] CLIA [id number] [facility] [place] [address] [place] oxyMORphone Confirm (U) [Mass/Vol] 2296 ng/mL High <5 [facility] Comment on above: Order Comment: Speci men Type: URINE SPECIMEN [facility] Address: [address] [place] [address] Result Comment: Oxym orphone may arise from oxymorphone containing drugs or by metabolism of oxycodone. Performed By: #### L [id number] #### [facility] CLIA [id number] [address] traMADol Confirm (U) [Mass/Vol] <25 Normal <25 [facility] Comment on above: Order Comment: Speci men Type: URINE SPECIMEN [facility] Address: [address] [place] [address] Performed By: #### L [id number] #### [facility] CLIA [id number] [address] [place] [address] OF [place] SPECIMEN VALIDITY, URINEon 1 03-28-2021 CHROMATE,URINE <10 Normal <50 [facility] Comment on above: Order Comment: Speci men Type: URINE SPECIMEN [facility] Address: [address] [place] [address] Performed By: #### L [id number] #### [facility] CLIA [id number] [address] STATES [place] CREATININE,URINE 78.6 mg/dL Normal 20.0-300.0 [facility] Comment on above: Order Comment: Speci men Type: URINE SPECIMEN [facility] Address: [address] [place] [address] Performed By: #### L [id number] #### [facility] CLIA [id number] [address] NITRITES,URINE <50 Normal <500 [facility] Comment on above: Order Comment: Speci men Type: URINE SPECIMEN [facility] Address: [address] Performed By: #### L [id number] #### [facility] CLIA [id number] [address] [place] [address] [place] OXIDANTS,URINE 58 mg/L Normal <200 [facility] Comment on above: Order Comment: Speci men Type: URINE SPECIMEN [facility] Address: [address] [place], [place] [address] Performed By: #### L [id number] #### [facility] CLIA [id number] [address] [place] [address] [place] pH (U) 5.7 [pH] Normal 4.5-8.0 [facility] Comment on above: Order Comment: Speci men Type: URINE SPECIMEN [facility] Address: [address] [place] [address] Performed By: #### L [id number] #### [facility] CLIA [id number] [address] [place] [address] [place] SPEC GRAVITY,UR 1.010 Normal 1.003-1.035 [facility] Comment on above: Order Comment: Speci men Type: URINE SPECIMEN [facility] Address: [address] [place], [place] [address] Performed By: #### L [id number] #### [facility] CLIA [id number] [address] [place] [address] SPECIMEN VALIDITY QUALITY Specimen quality results within acceptable limits Normal [facility] Comment on above: Order Comment: Speci men Type: URINE SPECIMEN [facility] Address: [address] [place], [place] [address] Performed By: #### L [id number] #### [facility] CLIA [id number] [address] [place] [address] [place] CBC W Auto Differential pane l (Bld)on 11-13-2021 Abs Immature Gran 0.03 k/uL <0.10 k/uL [facility] Basophils (Bld) [#/Vol] 0.03 10*3/uL <0.11 k/uL [facility] Basophils/100 WBC (Bld) 0.4 % [facility] Differential cell count method Nom (Bld) Auto [facility] Eosinophils (Bld) [#/Vol] 0.34 10*3/uL <0.46 k/uL [facility] Eosinophils/100 WBC (Bld) 4.8 % [facility] Erythrocyte distribution width (RBC) [Ratio] 13.8 % 11.5 - 15.0 % [facility] Hematocrit (Bld) [Volume fraction] 44.4 % 36.0 - 46.0 % [facility] Hemoglobin (Bld) [Mass/Vol] 14.8 g/dL 11.5 - 15.5 g/dL [facility] Immature Gran % 0.4 % [facility] Lymphocytes (Bld) [#/Vol] 1.62 10*3/uL 1.00 - 4.00 k/uL [facility] Lymphocytes/100 WBC (Bld) 23.0 % [facility] MCH (RBC) [Entitic mass] 31.6 pg 26.0 - 34.0 pg [facility] MCHC (RBC) [Mass/Vol] 33.3 g/dL 30.5 - 36.0 g/dL [facility] MCV (RBC) [Entitic vol] 94.7 fL 80.0 - 100.0 fL [facility] Monocytes (Bld) [#/Vol] 0.51 10*3/uL <0.87 k/uL [facility] Monocytes/100 WBC (Bld) 7.3 % [facility] Neutrophils (Bld) [#/Vol] 4.50 10*3/uL 1.45 - 7.50 k/uL [facility] Neutrophils/100 WBC (Bld) 64.1 % [facility] Nucleated RBC (Bld) [#/Vol] <0.01 k/uL [facility] Nucleated RBC/100 WBC (Bld) [Ratio] 0.0 /100 WBC [facility] Platelet mean volume (Bld) [Entitic vol] 9.6 fL 9.0 - 12.7 fL [facility] Platelets (Bld) [#/Vol] 310 10*3/uL 150 - 400 k/uL [facility] RBC (Bld) [#/Vol] 4.69 10*6/uL 3.90 - 5.2 0 m/uL [facility] WBC (Bld) [#/Vol] 7.03 10*3/uL 3.70 - 11. 00 k/uL [facility] CNOVon 10-26-2021 CNOV Office Visit (CNFVM) CELSO POTTS ([id number]) 1980 F TRN Date Time Provider Department 10/26/21 3:00 PM JUAN FRANCISCO HUTCHINSON [facility] During your visit today, we recorded the following information about you: Temperature Pulse Blood pressure Weight 97.7 degrees 100/minute 117/88 103 kg Juan Francisco Hutchinson APRN.CLINICAL TRIAL DATA MANAGER 10/26/2021 2:43 PM Signed PALLIATIVE MEDICINE PROGRESS NOTE SERVICE DATE: 10/26/2021 Primary Site of Disease/Medical Illness: Hodgkin Lymphoma Site of Metastasis: Liver, Lymph nodes, Spleen CHIEF COMPLAINT: follow up for pain PERTINENT MEDICAL HISTORY: Celso Potts is a 41 yo female with Hodgkin's Lymphoma diagnosed 01/16/2012 s/p autologous SCT (2013) and several other treatments due to recurrences in that time. She has undergone palliative radiation to spleen, liver, and lymph nodes per Dr. Del Valle. She is currently treated with Keytruda per Dr. Abimael Ramires. Course has been c/b pulmonary embolus (on AC). Palliative care is following for symptom control needs. Subjective Last pall care with [facility] visit 08/02. Referred to [facility] due to proximity of home. Did not go well. Now back for follow up for symptom control. Recovered from COVID in September PET/CT 08/15/[address] in neck and mesentery - will have repeat PET upcoming to evaluate. Continued on same treatment per oncology. Presents today alone. Reports she has been doing about the same but is nervous about what the upcoming PET scan will show. Modified ESAS ([place] Symptom Assessment Scale) Information Provided By: Patient Pain: continues to have generalized arthralgias and myalgias which interfere with mobility and productivity during the day. These are well controlled with oxycodone PRN. Also with muscle spasms which can happen at various locations on her body and worse/more often when she has more activity (she has been doing metal detecting with her father recently) but these are very well controlled as long as she takes baclofen as prescribed. Using flexeril PRN. Denies confusion oversedation myoclonsu Nausea: occurring in the morning, resolves with dose of compazine PRN Loss of Appetite: None Constipation: none Shortness of Breath: None Drowsiness: None Tiredness: more tired recently due to new sleep issues. She falls asleep well after taking ativan and trazodone but wakes several times and doesn't go back to sleep. Doesn't nap during day to avoid trouble sleeping. Depression: Mild Anxiety: Mild How you feel overall: Good Objective ECOG PERFORMANCE STATUS: 0- Fully active, able to carry on all pre-disease performance w/o restriction. PHYSICAL EXAMINATION: Vital signs: BP 117/88 Pulse 100 Temp 36.5 ?C (97.7 ?F) Wt 103 kg (227 lb) LMP 11/18/2012 SpO2 97% BMI 30.79 kg/m? Last 1 Encounter Temp Readings: Date: Temp: Temp Src: 10/25/2021 36.8 ?C (98.2 ?F) Oral Last 1 Encounter Resp Readings: Date: Resp: 09/20/2021 23 Last 1 Encounter Pulse Readings: Date: Pulse: 10/25/2021 102 Last 1 Encounter BP Readings: Date: BP: 10/25/2021 112/87 General Appearance: No apparent distress and well nourished Skin: No jaundice, No rash, and No breakdown Lungs: unlabored effort, no conversational dyspnea CV: no BLE edema Musculoskeletal: No gross deformity Neuro: Alert and oriented to time place and person and gait normal Psych: Well groomed, Affect congruent with mood, and Good eye contact DATA: Diagnostic tests reviewed for today's visit: Most recent labs and imaging results. Estimated Creatinine Clearance: 144.8 mL/min (based on SCr of 0.7 mg/dL). Opioid Management: Yes Indication for Opioid Prescribing: Chronic, Non-cancer pain ORT-OUD Score: 2 A score of 3 or higher may indicate a higher risk for future development of aberrant drug related behavior or opioid use disorder. Informed consent for chronic opiate therapy obtained and written pain agreement: On file Naloxone offered?: Previously prescribed Course of treatment, patient's response and adherence to the prescribed treatment plan reviewed, including non-pharmacological and non-opioid treatment modalities? Yes Have any complications or exacerbations of the underlying condition causing the pain been reviewed? Yes How much does pain impede patient?s ability to engage in work or other purposeful activities, interfere with your activities of daily living, physical activity, or quality of your family life and social activities? Moderately Aberrancies in pain panel? No Any aberrant drug related behaviors since last visit? No Rationale for continuing opioid treatment: Improved comfort and function based on an ongoing functional assessment Benefits of Opioid Therapy outweigh risks: Yes Prescribed Morphine Equivalent Daily Dose (MEDD): Yes > 50 MEDD Yes, I am certified in Hospice and Palliative Care, Hematology, Medical Onco (more content not included)... Normal [facility] XR CHEST 1V FRONTAL PORTon 0 09-21-2021 XR CHEST 1V FRONTAL PORT * * *Final Report* * * DATE OF EXAM: Sep 20 2021 10:37PM VHX [id number] - XR CHEST 1V FRONTAL PORT / PROCEDURE REASON: Fever of unknown origin * * * * Physician Interpretation * * * * EXAMINATION: CHEST RADIOGRAPH (PORTABLE SINGLE VIEW AP) Exam Date/Time: 09/20/2021 10:37 PM CLINICAL HISTORY: Fever of unknown origin MQ: XCPR_5 Comparison: PET/CT dated 08/15/2021, frontal view chest dated 09/30/2017 RESULT: Lines, tubes, and devices: None. Lungs and pleura: Stable changes of left-sided radiation fibrosis with no acute pulmonary parenchymal or pleural disease. Cardiomediastinal silhouette: Stable cardiomediastinal silhouette. Other: . IMPRESSION: No adverse interval change compared to prior studies. Casting House Laborer: DEDE Transcribe Date/Time: Sep 20 2021 11:03P Dictated by : BRADY BUCK MD This examination was interpreted and the report reviewed and electronically signed by: BRADY BUCK MD on Sep 20 2021 11:04PM EST [id number] Normal [facility] Bacteria Bld Culton 09-21-19 22 Bacteria identified Cx Nom (Bld) CULTURE, BLOOD: No growth 5 days Normal [facility] Comment on above: Performed By: #### 6 00-7 #### [facility] CLIA [id number] [address] [place] [address] [place] Bacteria identified Cx Nom (Bld) CULTURE, BLOOD: No growth 5 days Normal [facility] Comment on above: Performed By: #### 6 00-7 #### [facility] CLIA [id number] [address] [place] [address] [place] Bacteria Ur Culton 2 Bacteria identified Cx Nom (U) CULTURE, URINE: No growth (<1,000 CFU/ml) Normal [facility] Comment on above: Performed By: #### 6 30-4 #### [facility] CLIA [id number] [address] [place] [address] [place] CBC W Auto Differential pane l (Bld)on 09-20-2021 Basophils (Bld) [#/Vol] 0.03 10*3/uL Normal <0.11 [facility] Comment on above: Order Comment: Speci men Type: BLOOD SPECIMEN Ordering Facility: [facility] Address: [address] [place] [address] Performed By: #### 5 7021-8 #### [facility] [place] [id number] [address] [place] [address] [place] Basophils/100 WBC (Bld) 0.5 % Normal [facility] Comment on above: Order Comment: Speci men Type: BLOOD SPECIMEN Ordering Facility: [facility] Address: [address] [place] [address] Performed By: #### 5 7021-8 #### [facility] [place] [id number] [address] [place] [id number] [place] Differential cell count method Nom (Bld) Auto Normal [facility] Comment on above: Order Comment: Speci men Type: BLOOD SPECIMEN Ordering Facility: [facility] Address: [address] Performed By: #### 5 7021-8 #### [facility] [place] [id number] [address] [place] [address] [place] Eosinophils (Bld) [#/Vol] 0.20 10*3/uL Normal <0.46 [facility] Comment on above: Order Comment: Speci men Type: BLOOD SPECIMEN Ordering Facility: [facility] Address: [address] [place], [place] [address] Performed By: #### 5 7021-8 #### [facility] [place] [id number] [address] [place] [address] [place] Eosinophils/100 WBC (Bld) 3.1 % Normal [facility] Comment on above: Order Comment: Speci men Type: BLOOD SPECIMEN Ordering Facility: [facility] Address: [address] [place] [address] Performed By: #### 5 7021-8 #### [facility] [place] [id number] [address] [place] [address] [place] Erythrocyte distribution width (RBC) [Ratio] 13.4 % Normal 11.5-15.0 [facility] Comment on above: Order Comment: Speci men Type: BLOOD SPECIMEN Ordering Facility: [facility] Address: [address] Performed By: #### 5 7021-8 #### [facility] CLIA [id number] [address] [place] Hematocrit (Bld) [Volume fraction] 47.1 % High 36.0-46.0 [facility] Comment on above: Order Comment: Speci men Type: BLOOD SPECIMEN Ordering Facility: [facility] Address: [address] [place], [place] [address] Performed By: #### 5 7021-8 #### [facility] CLIA [id number] [place] Hemoglobin (Bld) [Mass/Vol] 15.4 g/dL Normal 11.5-15.5 [facility] Comment on above: Order Comment: Speci men Type: BLOOD SPECIMEN Ordering Facility: [facility] Address: [address] [place] [address] Performed By: #### 5 7021-8 #### [facility] [place] [id number] [address] [place] [address] [place] IMMATURE GRAN % 0.3 % Normal [facility] Comment on above: Order Comment: Speci men Type: BLOOD SPECIMEN Ordering Facility: [facility] Address: [address] [place] [address] Performed By: #### 5 7021-8 #### [facility] [place] [id number] [id number] [place] IMMATURE GRAN ABS <0.03 Normal <0.10 [facility] Comment on above: Order Comment: Speci men Type: BLOOD SPECIMEN Ordering Facility: [facility] Address: [address] [place] [address] Performed By: #### 5 7021-8 #### [facility] [place] [id number] [place] Lymphocytes (Bld) [#/Vol] 0.78 10*3/uL Low 1.00-4.00 [facility] Comment on above: Order Comment: Speci men Type: BLOOD SPECIMEN Ordering Facility: [facility] Address: [address] [place] [address] Performed By: #### 5 7021-8 #### [facility] [place] [id number] [address] [place] Lymphocytes/100 WBC (Bld) 11.9 % Normal [facility] Comment on above: Order Comment: Speci men Type: BLOOD SPECIMEN Ordering Facility: [facility] Address: [address] [place] [address] Performed By: #### 5 7021-8 #### [facility] [place] [id number] [address] [place] [address] [place] MCH (RBC) [Entitic mass] 31.0 pg Normal 26.0-34.0 [facility] Comment on above: Order Comment: Speci men Type: BLOOD SPECIMEN Ordering Facility: [facility] Address: [address] [place] [address] Performed By: #### 5 7021-8 #### [facility] [place] [id number] [address] [place] [address] [place] MCHC (RBC) [Mass/Vol] 32.7 g/dL Normal 30.5-36.0 [facility] Comment on above: Order Comment: Speci men Type: BLOOD SPECIMEN Ordering Facility: [facility] Address: [address] [place] [address] Performed By: #### 5 7021-8 #### [facility] [place] [id number] [address] [place] [address] [place] MCV (RBC) [Entitic vol] 94.8 fL Normal 80.0-100.0 [facility] Comment on above: Order Comment: Speci men Type: BLOOD SPECIMEN Ordering Facility: [facility] Address: [address] [place] [address] Performed By: #### 5 7021-8 #### [facility] [place] [id number] [address] [place] [address] [place] Monocytes (Bld) [#/Vol] 0.81 10*3/uL Normal <0.87 [facility] Comment on above: Order Comment: Speci men Type: BLOOD SPECIMEN Ordering Facility: [facility] Address: [address] [place] [address] Performed By: #### 5 7021-8 #### [facility] [place] [id number] [place] Monocytes/100 WBC (Bld) 12.4 % Normal [facility] Comment on above: Order Comment: Speci men Type: BLOOD SPECIMEN Ordering Facility: [facility] Address: [address] [place], [place] [address] Performed By: #### 5 7021-8 #### [facility] CLIA [id number] [address] [place] [address] [place] Neutrophils (Bld) [#/Vol] 4.71 10*3/uL Normal 1.45-7.50 [facility] Comment on above: Order Comment: Speci men Type: BLOOD SPECIMEN Ordering Facility: [facility] Address: [address] [place], [place] [address] Performed By: #### 5 7021-8 #### [facility] CLIA [id number] [address] [place] [address] [place] Neutrophils/100 WBC (Bld) 71.8 % Normal [facility] Comment on above: Order Comment: Speci men Type: BLOOD SPECIMEN Ordering Facility: [facility] Address: [address] [place] [address] Performed By: #### 5 7021-8 #### [facility] [place] [id number] [address] [place] [address] [place] Nucleated RBC (Bld) [#/Vol] 10*3/uL Normal <0.01 [facility] Comment on above: Order Comment: Speci men Type: BLOOD SPECIMEN Ordering Facility: [facility] Address: [address] [place], [place] [address] Performed By: #### 5 7021-8 #### [facility] [place] [id number] [address] [place] [address] [place] Nucleated RBC/100 WBC (Bld) [Ratio] 0.0 /100 WBC Normal [facility] Comment on above: Order Comment: Speci men Type: BLOOD SPECIMEN Ordering Facility: [facility] Address: [address] [place], [place] [address] Performed By: #### 5 7021-8 #### [facility] [place] [id number] [address] [place] [address] [place] Platelet mean volume (Bld) [Entitic vol] 9.0 fL Normal 9.0-12.7 [facility] Comment on above: Order Comment: Speci men Type: BLOOD SPECIMEN Ordering Facility: [facility] Address: [address] [place], [place] [address] Performed By: #### 5 7021-8 #### [facility] CLIA [id number] [address] [place] [address] [place] Platelets (Bld) [#/Vol] 229 10*3/uL Normal 150-400 [facility] Comment on above: Order Comment: Speci men Type: BLOOD SPECIMEN Ordering Facility: [facility] Address: [address] [place], [place] [address] Performed By: #### 5 7021-8 #### [facility] [place] [id number] [address] [place] [address] [place] RBC (Bld) [#/Vol] 4.97 10*6/uL Normal 3.90-5.20 [facility] Comment on above: Order Comment: Speci men Type: BLOOD SPECIMEN Ordering Facility: [facility] Address: [address] [place], [place] [address] Performed By: #### 5 7021-8 #### [facility] [place] [id number] [address] [place] [address] [place] WBC (Bld) [#/Vol] 6.55 10*3/uL Normal 3.70-11.00 [facility] Comment on above: Order Comment: Speci men Type: BLOOD SPECIMEN Ordering Facility: [facility] Address: [address] [place], [place] [address] Performed By: #### 5 7021-8 #### [facility] [place] [id number] [address] [place] [address] [facility] [place] Comprehensive metabolic 2000 panelon 09-20-2021 Albumin [Mass/Vol] 4.5 g/dL Normal 3.9-4.9 [facility] Comment on above: Order Comment: Speci men Type: URINE SPECIMEN Ordering Facility: [facility] Address: [address] [place], [place] [address] Performed By: #### 2 106-3 #### [facility] CLIA [id number] [address] [place] [address] [place] ALP [Catalytic activity/Vol] 81 U/L Normal 34-123 [facility] Comment on above: Order Comment: Speci men Type: URINE SPECIMEN Ordering Facility: [facility] Address: [address] [place] [address] Performed By: #### 2 106-3 #### [facility] CLIA [id number] [address] [place] [address] [place] ALT [Catalytic activity/Vol] 84 U/L High 7-38 [facility] Comment on above: Order Comment: Speci men Type: URINE SPECIMEN Ordering Facility: [facility] Address: [address] [place] [address] Performed By: #### 2 106-3 #### [facility] IA [id number] [address] [place] [address] [place] Anion gap [Moles/Vol] 8 mmol/L Low 9-18 [facility] Comment on above: Order Comment: Speci men Type: URINE SPECIMEN Ordering Facility: [facility] Address: [address] [place], [place] [address] Performed By: #### 2 106-3 #### [facility] [place] [id number] [address] [place] [address] [place] AST [Catalytic activity/Vol] 73 U/L High 13-35 [facility] Comment on above: Order Comment: Speci men Type: URINE SPECIMEN Ordering Facility: [facility] Address: [address] [place], [place] [address] Performed By: #### 2 106-3 #### [facility] [place] [id number] [address] [place] [address] [place] Bilirubin [Mass/Vol] 0.4 mg/dL Normal 0.2-1.3 [facility] Comment on above: Order Comment: Speci men Type: URINE SPECIMEN Ordering Facility: [facility] Address: [address] [place], [place] [address] Performed By: #### 2 106-3 #### [facility] [place] [id number] [address] [place] [address] [place] Calcium [Mass/Vol] 9.4 mg/dL Normal 8.5-10.2 [facility] Comment on above: Order Comment: Speci men Type: URINE SPECIMEN Ordering Facility: [facility] Address: [address] [place], [place] [address] Performed By: #### 2 106-3 #### [facility] [place] [id number] [address] [place] [address] [place] Chloride [Moles/Vol] 99 mmol/L Normal 97-105 [facility] Comment on above: Order Comment: Speci men Type: URINE SPECIMEN Ordering Facility: [facility] Address: [address] [place], [place] [address] Performed By: #### 2 106-3 #### [facility] [place] [id number] [address] [place] [address] [place] CO2 [Moles/Vol] 30 mmol/L Normal 22-30 [facility] Comment on above: Order Comment: Speci men Type: URINE SPECIMEN Ordering Facility: [facility] Address: [address] [place], [place] [address] Performed By: #### 2 106-3 #### [facility] [place] [id number] [address] [place] [address] [place] Creatinine [Mass/Vol] 0.78 mg/dL Normal 0.58-0.96 [facility] Comment on above: Order Comment: Speci men Type: URINE SPECIMEN Ordering Facility: [facility] Address: [address] [place], [place] [address] Performed By: #### 2 106-3 #### [facility] [place] [id number] [address] [place] [address] [place] ESTIMATED GLOMERULAR FILTRATION RATE 99 mL/min/1.73m??? Normal >=60 [facility] Comment on above: Order Comment: Specmarcia men Type: URINE SPECIMEN Ordering Facility: [facility] Address: [address] [place] [id number] Result Comment: Purnima mated Glomerular Filtration Rate (eGFR) is calculated using the 2020 CKD-EPI creatinine equation. This equation utilizes serum creatinine, sex, and age as parameters. The creatinine assay has traceable calibration to isotope dilution-mass spectrometry. Refer to KDIGO guidelines for clinical interpretation. In patients with unstable renal function, e.g. those with acute kidney injury, the eGFR may not accurately reflect actual GFR. Performed By: #### 2 106-3 #### [facility] CLIA [id number] [address] [facility] [place] [address] [place] Glucose [Mass/Vol] 97 mg/dL Normal 74-99 [facility] Comment on above: Order Comment: Nicole toribio Type: URINE SPECIMEN Ordering Facility: [facility] Address: [address] [place] [address] Result Comment: The [place] [employer] (ADA) provides guidance for cutoff values for fasting glucose and random glucose. The ADA defines fasting as no caloric intake for at least 8 hours. Fasting plasma glucose results between 100 to 125 mg/dL indicate increased risk for diabetes (prediabetes). Fasting plasma glucose results greater than or equal to 126 mg/dL meet the criteria for diagnosis of diabetes. In the absence of unequivocal hyperglycemia, results should be confirmed by repeat testing. In a patient with classic symptoms of hyperglycemia or hyperglycemic crisis, random plasma glucose results greater than or equal to 200 mg/dL meet the criteria for diagnosis of diabetes. Reference: Standards of Medical Care in Diabetes 2016, [place] [employer]. Diabetes Care. 2016.39(Suppl 1). Performed By: #### 2 106-3 #### [facility] CLIA [id number] [address] [facility] [place] [address] [place] Potassium [Moles/Vol] 3.8 mmol/L Normal 3.7-5.1 [facility] Comment on above: Order Comment: Nicole malu Type: URINE SPECIMEN Ordering Facility: [facility] Address: [address] [place] [id number] Performed By: #### 2 106-3 #### [facility] [place] [id number] [place] Protein [Mass/Vol] 7.3 g/dL Normal 6.3-8.0 [facility] Comment on above: Order Comment: Speci men Type: URINE SPECIMEN Ordering Facility: [facility] Address: [address] [place] [address] Performed By: #### 2 106-3 #### [facility] [place] [id number] [address] [place] [address] [place] Sodium [Moles/Vol] 137 mmol/L Normal 136-144 [facility] Comment on above: Order Comment: Speci men Type: URINE SPECIMEN Ordering Facility: [facility] Address: [address] [place] [address] Performed By: #### 2 106-3 #### [facility] IA [id number] [address] [place] [address] [place] Urea nitrogen [Mass/Vol] 8 mg/dL Normal 7-21 [facility] Comment on above: Order Comment: Speci men Type: URINE SPECIMEN Ordering Facility: [facility] Address: [address] [place] [address] Performed By: #### 2 106-3 #### [facility] [place] [id number] [place] ECG COMPLETEon 09-20-2021 ECG COMPLETE Ventricular Rate : 1 08 BPM Atrial Rate : 109 BPM P-R Interval : 158 ms QRS Duration : 91 ms Q-T Interval : 332 ms QTC Calculation(Bazett) : 445 ms Calculated P [place] : 66 degrees Calculated R [place] : -26 degrees Calculated T [place] : 11 degrees Sinus tachycardia LVH by voltage Anterior Q waves, possibly due to LVH Abnormal ECG 2052 no STEMI Confirmed by TREY NAJERA MD ([id number]), sound editor SHERIN DELACRUZ ([id number]) on 09/21/2021 9:56:42 AM NAME : CELSO POTTS PID : [id number] : 1980 Gender : Female Race : ORD : [id number] Procedure Date : Sep 20 2021 20:31:09 Edit Date : Sep 21 2021 09:56:43 Diagnosis: Sinus tachycardia LVH by voltage Anterior Q waves, possibly due to LVH Abnormal ECG 2052 no STEMI Confirmed by TREY NAJERA MD ([id number]), sound editor SHERIN DELACRUZ ([id number]) on 09/21/2021 9:56:42 AM Test Reason : Chest Pain Location : 302 : ED AVED-15 Overread By : TREY NAJERA MD Edited By : SHERIN DELACRUZ Referred By : , Acquired by : [id number], [facility] ED NOTEon 09-20-2021 ED NOTE HNO ID: [id number] Author: Paula Ardon RN Service: ? Author Type: Registered Nurse Type: ED Notes Filed: 09/20/2021 9:00 PM Note Text: Pt ambulated to bathroom - steady gait [facility] ED PROV NOTEon 09-20-2021 ED PROV NOTE HNO ID: [id number] Author: Trey Najera DO Service: Emergency Medicine Author Type: Physician Type: ED Provider Notes Filed: 09/20/2021 11:23 PM Note Text: ED Provider Note Patient Name: Celso Potts : 1980 SERVICE DATE: 09/20/21 History Patient presents with: Fever With History Of Cancer: Hodgkins lymphoma doing immunotherapy, fever, chills, fatigue today. Tylenol at 4pm Patient presents to the ED by private vehicle for evaluation of a fever. She has a history of Hodgkin's lymphoma. Currently on immunotherapy. Woke up this afternoon with fever chills body aches and fatigue. [place] fine yesterday. Denies any runny nose sore throat cough. No shortness of breath. No chest pain. No abdominal pain nausea vomiting diarrhea. No hematuria. No rash. No open wounds. No history of MRSA infection. No Mediport. Receives immunotherapy through IV. She had a temperature of 102. Took Tylenol. Complains of a headache. Not the worst headache of her life. No neck pain or stiffness. Took Tylenol at 4 PM today. PAST MEDICAL HISTORY Diagnosis Date - ASCUS favor dysplasia 09/2014 for colpo - Dyspareunia - Fibroid 04/02/2017 - Hodgkin lymphoma (HCC) 01/16/2012 stage IIIB, Nodular sclerosis classical Hodgkin lymphoma - Menorrhagia 04/02/2017 - PE (pulmonary embolism) Found incidentally on staging CT May 27, 2012 - Pneumonitis 2013 Attributed to radiation and brentuximab vedotin - Postmenopausal atrophic vaginitis - Postmenopausal HRT (hormone replacement therapy) 08/2014 offered - Premature menopause 01/2014 FSH 70 normal dxa - Tachycardia on atenolol - Vaginal high risk human papillomavirus (HPV) DNA test positive 09/28/2014 PAST SURGICAL HISTORY Procedure Laterality Date - ENDOCERVICAL CURETTAGE 04/02/2017 - HYSTEROSCOPY BX W/WO DANDC 04/02/2017 with DANDC - PAST SURGICAL HISTORY OF 01/16/12 left axillary ln biopsy/ had 2012 stem cell tx has port removal - VAGINOSCOPY 10/12/14 negative path - VATS MEDIASTINAL LYMPHADENECTOMY 10/2012 left VATS FAMILY HISTORY Problem Relation Age of Onset - Multiple Sclerosis Mother - Coronary Artery Disease Maternal Grandfather [place] age 36 - Coronary Artery Disease Paternal Grandfather 60's - Multiple Sclerosis Maternal Grandmother Social History Tobacco Use - Smoking status: Former Smoker Years: 10.00 Types: Cigarettes Quit date: 01/18/2012 Years since quittin.6 - Smokeless tobacco: Never Used Vaping Use - Vaping Use: Never used Substance and Sexual Activity - Alcohol use: Yes Alcohol/week: 0.0 standard drinks Comment: 2 drinks per month - Drug use: No - Sexual activity: Yes Partners: Male control/protection: None Comment: condoms was on ocp, 2012 Menopause ALLERGIES Allergen Reactions - Chlorhexidine Itching Severe skin irritation. Had used for central line care - Sulfa (Sulfonamide * Rash Review of Systems Constitutional: Positive for chills and fever. HENT: Negative for congestion. Respiratory: Negative for cough and shortness of breath. Cardiovascular: Negative for chest pain. Gastrointestinal: Negative for abdominal pain, nausea and vomiting. Genitourinary: Negative for dysuria. Musculoskeletal: Positive for myalgias. Skin: Negative for rash and wound. Allergic/Immunologic: Positive for immunocompromised state. Neurological: Positive for headaches. Hematological: Negative for adenopathy. All other systems reviewed and are negative. Physical Exam Vitals [09/20/212002] BP Pulse Temp Temp src Resp SpO2 Weight Height 130/82 (!) 114 37.8 ?C (100.1 ?F) Oral 16 97 % 108.9 kg (240 lb) 1.829 m (6') Physical Exam Vitals and nursing note reviewed. Constitutional: General: She is not in acute distress. Appearance: Normal appearance. She is well-developed. She is not ill-appearing, toxic-appearing or diaphoretic. HENT: Head: Normocephalic and atraumatic. Mouth/Throat: Mouth: Mucous membranes are moist. Eyes: Extraocular Movements: Extraocular movements intact. Conjunctiva/sclera: Conjunctivae normal. Pupils: Pupils are equal, round, and reactive to light. Neck: Comments: Neck is supple without meningeal signs. Cardiovascular: Rate and Rhythm: Normal rate and regular rhythm. Pulses: Normal pulses. Heart sounds: Normal heart sounds. Pulmonary: Effort: Pulmonary effort is normal. Breath sounds: Normal breath sounds. Abdominal: General: Abdomen is flat. Bowel sounds are normal. There is no distension. Palpations: Abdomen is soft. Tenderness: There is no abdominal tenderness. There is no guarding or rebound. Musculoskeletal: General: Normal range of motion. Cervical back: Normal range of motion and neck supple. No rigidity or tenderness. Right lower leg: No edema. Left lower leg: No edema. Skin: General: Skin is warm and dry. Findings: No erythema or rash. Neurological: General: No foca (more content not included)... Normal [facility] HCG Preg Ur Qlon 09-20-2021 HCG ( test) Ql (U) Negative Normal Negative [facility] Comment on above: Order Comment: Speci men Type: URINE SPECIMEN Ordering Facility: [facility] Address: [address] [place] [address] Result Comment: This test is intended to aid in the early detection of . Very dilute urine samples, as indicated by a low specific gravity, may not contain wireless sales representative levels of hCG. This test detects intact hCG only. This test does not reliably detect hCG degradation products, including free-beta subunit and beta-core fragment. Therefore, this test may show reduced reactivity in urine after 8 weeks gestation. A number of conditions other than , including trophoblastic disease and certain non-trophoblastic neoplasms cause elevated levels of hCG. As with any assay employing mouse antibodies, the possibility exists for interference by human anti-mouse antibodies (HAMA) in the specimen. The test provides a presumptive diagnosis for . Performed By: #### 2 106-3 #### [facility] [place] [id number] [address] [place] [address] TROPONIN Ton 09-20-2021 Troponin T.cardiac [Mass/Vol] ug/L Normal 0.000-0.029 [facility] Comment on above: Order Comment: Speci men Type: URINE SPECIMEN Ordering Facility: [facility] Address: [address] [place] [address] Performed By: #### 2 106-3 #### [facility] [place] [id number] [address] [place] [address] Urinalysis complete panel (U )on 09-20-2021 Bacteria LM.HPF (Urine sed) [#/Area] Rare Abnormal None Seen [facility] Comment on above: Order Comment: Speci men Type: URINE SPECIMEN Ordering Facility: [facility] Address: [address] [place] [address] Performed By: #### 2 106-3 #### [facility] [place] [id number] [address] [place] [address] [place] Bilirubin Ql (U) Negative Normal Negative [facility] Comment on above: Order Comment: Speci men Type: URINE SPECIMEN Ordering Facility: [facility] Address: [address] [place] [address] Performed By: #### 2 106-3 #### [facility] [place] [id number] [address] [place] [address] [place] Clarity (Unsp spec) Clear Normal Clear [facility] Comment on above: Order Comment: Speci men Type: URINE SPECIMEN Ordering Facility: [facility] Address: [address] [place] [address] Performed By: #### 2 106-3 #### [facility] [place] [id number] [address] [place] [address] [place] Color (U) Yellow Normal Yellow [facility] Comment on above: Order Comment: Speci men Type: URINE SPECIMEN Ordering Facility: [facility] Address: [address] [place] [address] Performed By: #### 2 106-3 #### [facility] [id number] [address] [place] [address] [place] Epithelial cells LM.HPF (Urine sed) [#/Area] Few Normal [facility] Comment on above: Order Comment: Speci men Type: URINE SPECIMEN Ordering Facility: [facility] Address: [address] [place] [address] Performed By: #### 2 106-3 #### [facility] [id number] [address] [place] [address] [place] Glucose Test strip (U) [Mass/Vol] Negative Normal Negative [facility] Comment on above: Order Comment: Speci men Type: URINE SPECIMEN Ordering Facility: [facility] Address: [address] [place] [address] Performed By: #### 2 106-3 #### [facility] [id number] [address] [place] [address] [place] Hemoglobin Ql (U) Negative Normal Negative [facility] Comment on above: Order Comment: Speci men Type: URINE SPECIMEN Ordering Facility: [facility] Address: [address] [place] [address] Performed By: #### 2 106-3 #### [facility] [id number] [address] [place] [address] [place] Ketones Ql (U) Negative Normal Negative [facility] Comment on above: Order Comment: Speci men Type: URINE SPECIMEN Ordering Facility: [facility] Address: [address] [place] [address] Performed By: #### 2 106-3 #### [facility] [place] [id number] [place] [address] [place] Leukocyte esterase Test strip Ql (U) Trace Abnormal Negative [facility] Comment on above: Order Comment: Speci men Type: URINE SPECIMEN Ordering Facility: [facility] Address: [address] [place] [address] Performed By: #### 2 106-3 #### [facility] [id number] [address] [place] [address] [place] Nitrite Ql (U) Negative Normal Negative [facility] Comment on above: Order Comment: Speci men Type: URINE SPECIMEN Ordering Facility: [facility] Address: [address] [place] [address] Performed By: #### 2 106-3 #### [facility] [id number] [address] [place] [address] [place] pH (U) 7.0 [pH] Normal 5.0-8.0 [facility] Comment on above: Order Comment: Speci men Type: URINE SPECIMEN Ordering Facility: [facility] Address: [address] [place] [address] Performed By: #### 2 106-3 #### [facility] [id number] [address] [place] [address] [place] Protein (U) [Mass/Vol] Negative Normal Negative [facility] Comment on above: Order Comment: Speci men Type: URINE SPECIMEN Ordering Facility: [facility] Address: [address] [place] [address] Performed By: #### 2 106-3 #### [facility] [id number] [address] [place] [address] [place] RBC LM.HPF (Urine sed) [#/Area] 0-3 /HPF Normal 0-3 /HPF [facility] Comment on above: Order Comment: Speci men Type: URINE SPECIMEN Ordering Facility: [facility] Address: [address] [place] [address] Performed By: #### 2 106-3 #### [facility] [id number] [address] [place], [place] [id number] [place] Specific gravity (U) [Rel density] 1.006 Normal 1.005-1.030 [facility] Comment on above: Order Comment: Speci men Type: URINE SPECIMEN Ordering Facility: [facility] Address: [address] [place] [address] Performed By: #### 2 106-3 #### [facility] [place] [id number] [place] Urobilinogen Ql (U) 0.2 EU/dL Normal 0.2-1.0 EU/dL [facility] Comment on above: Order Comment: Speci men Type: URINE SPECIMEN Ordering Facility: [facility] Address: [address] [place] [address] Performed By: #### 2 106-3 #### [facility] [id number] [address] [place] WBC LM.HPF (Urine sed) [#/Area] 0-5 /HPF Normal 0-5 /HPF [facility] Comment on above: Order Comment: Speci men Type: URINE SPECIMEN Ordering Facility: [facility] Address: [address] [place] [address] Performed By: #### 2 106-3 #### [facility] [place] [id number] [address] [place] WOUND CULTUREon 07-28-2021 Bacteria identified Aer cx Nom (Unsp spec) Final report Normal [facility] Comment on above: Performed By: #### C XWND #### [facility] [address] [place] [address] Dr. Kristina Morales Result 1 Mixed skin doni Normal [facility] [place] [facility] Comment on above: Performed By: #### C XWND #### [facility] [address] [place] [address] Dr. Kristina Morales Initial Visit (Otolaryngolog y)on 07-05-2021 Initial Visit (Otolaryngology) Diagnoses/Problems Dysphonia (784.42) (R49.0) Patient Discussion/Summary History of dysphonia. Thankfully, voice looks great. No evidence of any concerning irregularity such as nodules masses tumors etc. Suspect that probably the biggest contributing factor may very well be thickened mucus with recommendation for conservative strategies to help with that. This includes aggressive hydration strategies in particular. Patient otherwise reassured and recommend see me back depending how things fare. All questions were answered in this regard accordingly. Provider Impressions History of dysphonia. Thankfully, voice looks great. No evidence of any concerning irregularity such as nodules masses tumors etc. Suspect that probably the biggest contributing factor may very well be thickened mucus with recommendation for conservative strategies to help with that. This includes aggressive hydration strategies in particular. Patient otherwise reassured and recommend see me back depending how things fare. All questions were answered in this regard accordingly. Thank you again for allowing us to participate in the care of this patient. This note was created with voice recognition software and has not been corrected for typographical or grammatical errors. Chief Complaint HOARSENESS / DIFFICULTY SWALLOWING DR. JOSE VAIL History of Present IllnessPatient is a pleasant 40-year-old female seen today through the kind request of Dr. Vail for evaluation of her voice. This patient has had a history of hoarseness and loss of voice with occasional trouble swallowing. She has a lot of throat clearing. She has had this now for several months. Occasionally feels food sticking. Has a history of Hodgkin's disease status post multiple rounds of chemotherapy. Also is on Dexilant for reflux disease. Voice fluctuations are noted. All remaining ENT inquiry is clear. Quit smoking 5 years ago after smoking for about 15 years half pack per day. The patient's intake form incorporating patient medical history, social history, family history, and review of systems was reviewed by me today in the office and signed on this date and entered into the EMR system. Review of Systems A detailed review of systems is as noted on the intake form and is reviewed with the patient and is signed by me on this date. Active Problems Knee pain (719.46) (M25.569) Past Medical History History of asthma (V12.69) (Z87.09) History of balance disorder (V13.89) (Z87.898) History of bleeding disorder (V12.3) (Z86.2) History of malignant neoplasm (V10.90) (Z85.9) History of Numbness and tingling (782.0) (R20.0,R20.2) Surgical History History of Biopsy Family History Family history of multiple sclerosis (V17.2) (Z82.0) Social History Former smoker (V15.82) (Z87.891) Allergies sulfa Rash; Recorded By: Nico Wheat; 08/25/2019 8:25:52 AM Current Meds Medication NameInstruction Acyclovir 400 MG Oral Tablettake 1 tablet by mouth twice a day Atenolol TABS Ativan TABS Cyclobenzaprine HCl - 10 MG Oral Tablettake 3 tablets by mouth three times a day if needed Dexilant CPDR Flexeril TABS Gabapentin 300 MG Oral Capsuletake 2 capsules by mouth three times a day hydrOXYzine HCl - 25 MG Oral Tablettake 1 tablet by mouth every 8 hours if needed Imbruvica TABS LORazepam 0.5 MG Oral Tablettake 1 tablet by mouth twice a day and take 1 TO 2 tablets by mouth at bedtime if needed Montelukast Sodium 10 MG Oral Tablettake 1 tablet by mouth at bedtime Neurontin CAPS oxyCODONE HCl - 10 MG Oral Tablettake 1 tablet by mouth every 4 hours if needed for MODERATE TO SEVERE PAIN-30 DAY SUPPLY oxyCODONE-Acetaminophen TABS Prochlorperazine Maleate 10 MG Oral Tablettake 1 tablet by mouth 6 hours if needed Remeron TABS Synthroid TABS Ventolin HFA 108 (90 Base) MCG/ACT Inhalation Aerosol Solution Ventolin TABS Xarelto TABS Zovirax CAPS Physical Exam General appearance: No acute distress. Normal facies. Symmetric facial movement. No gross lesions of the face are noted. The external ear structures appear normal. The ear canals patent and the tympanic membranes are intact without evidence of air-fluid levels, retraction, or congenital defects. Anterior rhinoscopy notes essentially a midline nasal septum. Examination is noted for normal healthy mucosal membranes without any evidence of lesions, polyps, or exudate. The tongue is normally mobile. There are no lesions on the gingiva, buccal, or oral mucosa. There are no oral cavity masses. The neck is negative for mass lymphadenopathy. The trachea and parotid are clear. The thyroid bed is grossly unremarkable. The salivary gland structures are grossly unremarkable. In order to assess the larynx, flexible laryngoscopy was performed based on the patient's history. Procedure After topical anesthesia, a very complete flexible laryngoscopy was performed. This examination reveals a normal appearance to the laryngeal structure (more content not included)... Normal [facility] Culture, Urineon 04-17-2021 Culture, Urine ORDER#: [id number] ORDERED BY: SHEILA LIN SOURCE: Urine Voided COLLECTED: 04/17/21 18:42 ANTIBIOTICS AT CECILY.: RECEIVED : 04/17/21 19:23 Culture, Urine FINAL 04/19/21 12:36 Cult,Urine: NO SIGNIFICANT GROWTH Performed at [address], [place] [id number] ([phone] Normal [facility] Comment on above: Performed By: #### C SHIRA #### [facility] [address] [place] [address] Urinalysis, reflex to micros copicon 04-17-2021 Bilirubin Ql (U) Negative Normal Negative [facility] Comment on above: Performed By: #### U A #### [facility] [address] [place] [address] Clarity (U) Clear Normal Clear [facility] Comment on above: Performed By: #### U A #### [facility] [address] [place] [address] Color (U) Yellow Normal Straw/Placer [facility] Comment on above: Performed By: #### U A #### [facility] [address] [place] [address] Glucose Ql (U) Negative Normal Negative [facility] Comment on above: Performed By: #### U A #### [facility] [address] [place] [address] Hemoglobin Ql (U) Negative Normal Negative [facility] Comment on above: Performed By: #### U A #### [facility] [address] [place] [address] Ketones Ql (U) Negative Normal Negative [facility] Comment on above: Performed By: #### U A #### [facility] [address] [place] [address] Leukocyte esterase Test strip Ql (U) TRACE Abnormal Negative [facility] Comment on above: Performed By: #### U A #### [facility] [address] [place] [address] Nitrite Ql (U) Negative Normal Negative [facility] Comment on above: Performed By: #### U A #### [facility] [address] [place] [address] pH (U) 6.0 [pH] Normal 5.0-9.0 [facility] Comment on above: Performed By: #### U A #### [facility] [address] [place] [address] Protein Ql (U) Negative Normal Negative [facility] Comment on above: Performed By: #### U A #### [facility] [address] [place] [address] Specific gravity (U) [Rel density] 1.006 Normal 1.005-1.03 [facility] Comment on above: Performed By: #### U A #### [facility] [address] [place] [address] Urobilinogen Qn (U) 0.2 {Nuvia'U}/dL Normal < 2.0 [facility] Comment on above: Performed By: #### U A #### [facility] [address] [place] [address] Urine Microscopicon 04-17-19 22 Bacteria LM.HPF (Urine sed) [#/Area] Negative Normal Negative [facility] Comment on above: Performed By: #### U RICARDO #### [facility] [address] [place] [address] Urine Epithelial Cells Auto 0-2 Normal 0-5 [facility] Comment on above: Performed By: #### U RICARDO #### [facility] [address] [place] [address] Urine Hyaline Casts Auto 0-1 Normal 0-5 [facility] Comment on above: Performed By: #### U RICARDO #### [facility] [address] [place] [address] Urine RBC Auto 0-2 Normal 0-5 [facility] Comment on above: Performed By: #### U RICARDO #### [facility] [address] [place] [address] Urine WBC Auto 0-2 Normal 0-5 [facility] Comment on above: Performed By: #### U RICARDO #### [facility] [address] [place] [address] COVID Quick Testingon 2020 Result Negative [employer] Other XR ELBOW 3V AP/LAT/OTHER LTo n 11-23-2020 XR ELBOW 3V AP/LAT/OTHER LT * * *Final Report* * * DATE OF EXAM: Nov 23 2020 11:01AM VHX 5324 - XR ELBOW 3V AP/LAT/OTHER LT / PROCEDURE REASON: m25.522 * * * * Physician Interpretation * * * * EXAMINATION: XR ELBOW 3V AP/LAT/OTHER LT HISTORY: PAIN IN LEFT ELBOW m25.522. TECHNIQUE: XR ELBOW 3V AP/LAT/OTHER LT Laterality: LEFT Number of different views (projections): 4 M: XB_1 COMPARISON: None RESULT: No fracture or dislocation. Preserved joint spaces. No significant joint effusion. IMPRESSION: Normal radiographs of the elbow. [employer]: PSCB Transcribe Date/Time: Nov 23 2020 11:11A Dictated by : SHERLY العلي MD This examination was interpreted and the report reviewed and electronically signed by: LIBRA COOK MD on Nov 23 2020 4:30PM EST [id number] Normal [facility] KNEE CMPLT, 4 OR MORE VIEWSo n 08-24-2019 KNEE CMPLT, 4 OR MORE VIEWS Patient Name: CELSO POTTS STUDY: KNEE; COMPLT, 4 OR MORE VIEWS; Left; 08/24/2019 3:23 pm INDICATION: Pain. ACCESSION NUMBER(S): [id number] ORDERING CLINICIAN: RENETTA GUERRERO FINDINGS: Left knee x-rays four views AP, lateral, tunnel and sunrise view: No acute fractures, no dislocation. No significant degenerative changes. Electronically signed by: RENETTA GUERRERO MD Normal [facility] Free T4on 03-02-2019 Free T4 [Mass/Vol] 1.2 ng/dL Normal 0.9-1.7 [facility] Comment on above: Performed By: #### F T4, TSH #### [facility] Routine Lab [address] [place], [place] [id number] TSHon 03-02-2019 TSH Qn 5.290 uU/mL High 0.270-4.200 [facility] Comment on above: Performed By: #### F T4, TSH #### [facility] Routine Lab [address], [place] [address] Vital Signs Date Time Vital Sign Value Performing Clinician Facility 03-28-2023 14:19-0500 Body weight 108.86 kg Kylie Nunes APRN.CLINICAL TRIAL DATA MANAGER Work Phone: [facility] 03-28-2023 14:19-0500 Diastolic blood pressure 81 mm[Hg] Kylie Nunes APRN.CLINICAL TRIAL DATA MANAGER Work Phone: [facility] 03-28-2023 14:19-0500 Heart rate 99 /min Kyile Nunes APRN.CLINICAL TRIAL DATA MANAGER Work Phone: [facility] 03-28-2023 14:19-0500 SaO2% (BldA) [Mass fraction] 97 % Kylie Nunes APRN.CLINICAL TRIAL DATA MANAGER Work Phone: [facility] 03-28-2023 14:19-0500 Systolic blood pressure 114 mm[Hg] Kylie Nunes APRN.CLINICAL TRIAL DATA MANAGER Work Phone: [facility] 01-29-2023 16:45-0500 Body height 182.88 cm Keke Bright Other [facility] Other 01-29-2023 16:45-0500 Body mass index (BMI) [Ratio] 30.92 kg/m2 Keke Kaila Other [facility] Other 01-29-2023 16:45-0500 Body temperature 98 [degF] Keke Kaila Other [facility] Other 01-29-2023 16:45-0500 Body weight 103.42 kg Keke Kaila Other [facility] Other 01-29-2023 16:45-0500 Diastolic blood pressure 86 mm[Hg] Keke Kaila Other [facility] Other 01-29-2023 16:45-0500 Respiratory rate 18 /min Keke Kaila Other [facility] Other 01-29-2023 16:45-0500 SaO2% (BldA) [Mass fraction] 98 % Keke Kaila Other [facility] Other 01-29-2023 16:45-0500 Systolic blood pressure 133 mm[Hg] Keke Kaila Other [facility] Other 01-01-2023 10:53-0500 Body height 180 cm Alexsander Ledezma MD Work Phone: [facility] 01-01-2023 10:53-0500 Body temperature 97 [degF] Alexsander Ledezma MD Work Phone: [facility] 01-01-2023 10:53-0500 Body weight 102.6 kg Alexsander Ledezma MD Work Phone: [facility] 01-01-2023 10:53-0500 Diastolic blood pressure 89 mm[Hg] Alexsander Ledezma MD Work Phone: [facility] 01-01-2023 10:53-0500 Heart rate 104 /min Alexsander Ledezma MD Work Phone: [facility] 01-01-2023 10:53-0500 Respiratory rate 16 /min Alexsander Ledezma MD Work Phone: [facility] 01-01-2023 10:53-0500 SaO2% (BldA) [Mass fraction] 97 % Alexsander Ledezma MD Work Phone: [facility] 01-01-2023 10:53-0500 Systolic blood pressure 133 mm[Hg] Alexsander Ledezma MD Work Phone: [facility] 10-18-2022 11:01-0400 Body temperature 98.2 [degF] Juan Francisco Hutchinson PHOTOTYPESETTER OPERATOR.CLINICAL TRIAL DATA MANAGER Work Phone: [facility] 10-18-2022 11:01-0400 Body weight 102.01 kg Juan Francisco Hutchinson PHOTOTYPESETTER OPERATOR.CLINICAL TRIAL DATA MANAGER Work Phone: [facility] 10-18-2022 11:01-0400 Diastolic blood pressure 81 mm[Hg] Juan Francisco Hutchinson PHOTOTYPESETTER OPERATOR.CLINICAL TRIAL DATA MANAGER Work Phone: [facility] 10-18-2022 11:01-0400 Heart rate 96 /min Juan Francisco Hutchinson PHOTOTYPESETTER OPERATOR.CLINICAL TRIAL DATA MANAGER Work Phone: [facility] 10-18-2022 11:01-0400 SaO2% (BldA) [Mass fraction] 96 % Juan Francisco Hutchinson PHOTOTYPESETTER OPERATOR.CLINICAL TRIAL DATA MANAGER Work Phone: [facility] 10-18-2022 11:01-0400 Systolic blood pressure 116 mm[Hg] Juan Francisco Hutchinson PHOTOTYPESETTER OPERATOR.CLINICAL TRIAL DATA MANAGER Work Phone: [facility] 09-13-2022 10:06-0400 Body weight 103.87 kg Summer Carver MD Work Phone: [facility] 09-13-2022 10:06-0400 Diastolic blood pressure 87 mm[Hg] Summer Carver MD Work Phone: [facility] 09-13-2022 10:06-0400 Heart rate 95 /min Summer Carver MD Work Phone: [facility] 09-13-2022 10:06-0400 Respiratory rate 16 /min Summer Carver MD Work Phone: [facility] 09-13-2022 10:06-0400 SaO2% (BldA) [Mass fraction] 96 % Summer Carver MD Work Phone: [facility] 09-13-2022 10:06-0400 Systolic blood pressure 121 mm[Hg] Summer Carver MD Work Phone: [facility] 08-22-2022 14:33-0400 Body temperature 98.6 [degF] Cyn Ramires MD Work Phone: [facility] 08-22-2022 14:33-0400 Diastolic blood pressure 74 mm[Hg] Cyn Ramires MD Work Phone: [facility] 08-22-2022 14:33-0400 Heart rate 100 /min Cyn Ramires MD Work Phone: [facility] 08-22-2022 14:33-0400 SaO2% (BldA) [Mass fraction] 94 % Cyn Ramires MD Work Phone: [facility] 08-22-2022 14:33-0400 Systolic blood pressure 105 mm[Hg] Cyn Ramires MD Work Phone: [facility] 08-01-2022 09:56-0400 Body height 180.3 cm Ella Rocio PHOTOTYPESETTER OPERATOR.CLINICAL TRIAL DATA MANAGER Work Phone: [facility] 08-01-2022 09:56-0400 Body temperature 97 [degF] Ella Rocio PHOTOTYPESETTER OPERATOR.CLINICAL TRIAL DATA MANAGER Work Phone: [facility] 08-01-2022 09:56-0400 Diastolic blood pressure 80 mm[Hg] Ella Rocio PHOTOTYPESETTER OPERATOR.CLINICAL TRIAL DATA MANAGER Work Phone: [facility] 08-01-2022 09:56-0400 Heart rate 100 /min Ella Rocio PHOTOTYPESETTER OPERATOR.CLINICAL TRIAL DATA MANAGER Work Phone: [facility] 08-01-2022 09:56-0400 SaO2% (BldA) [Mass fraction] 95 % Ella Chan PHOTOTYPESETTER OPERATOR.CLINICAL TRIAL DATA MANAGER Work Phone: [facility] 08-01-2022 09:56-0400 Systolic blood pressure 115 mm[Hg] Ella Chan PHOTOTYPESETTER OPERATOR.CLINICAL TRIAL DATA MANAGER Work Phone: [facility] 07-19-2022 10:32-0400 Body weight 105.33 kg Juan Francisco Hutchinson PHOTOTYPESETTER OPERATOR.CLINICAL TRIAL DATA MANAGER Work Phone: [facility] 07-19-2022 10:32-0400 Diastolic blood pressure 84 mm[Hg] Juan Francisco Hutchinson PHOTOTYPESETTER OPERATOR.CLINICAL TRIAL DATA MANAGER Work Phone: [facility] 07-19-2022 10:32-0400 Heart rate 104 /min Juan Francisco Hutchinson PHOTOTYPESETTER OPERATOR.CLINICAL TRIAL DATA MANAGER Work Phone: [facility] 07-19-2022 10:32-0400 SaO2% (BldA) [Mass fraction] 94 % Juan Francisco Hutchinson PHOTOTYPESETTER OPERATOR.CLINICAL TRIAL DATA MANAGER Work Phone: [facility] 07-19-2022 10:32-0400 Systolic blood pressure 124 mm[Hg] Juan Francisco Hutchinson PHOTOTYPESETTER OPERATOR.CLINICAL TRIAL DATA MANAGER Work Phone: [facility] 07-18-2022 11:06-0400 Body height 182.9 cm Cyn Ramires MD Work Phone: [facility] 07-18-2022 11:06-0400 Body temperature 98.2 [degF] Cyn Ramires MD Work Phone: [facility] 07-18-2022 11:06-0400 Body weight 106.41 kg Cyn Ramires MD Work Phone: [facility] 07-18-2022 11:06-0400 Diastolic blood pressure 86 mm[Hg] Cyn Ramires MD Work Phone: [facility] 07-18-2022 11:06-0400 Heart rate 103 /min Cyn Ramires MD Work Phone: [facility] 07-18-2022 11:06-0400 Respiratory rate 18 /min Cyn Ramires MD Work Phone: [facility] 07-18-2022 11:06-0400 SaO2% (BldA) [Mass fraction] 96 % Cyn Ramires MD Work Phone: [facility] 07-18-2022 11:06-0400 Systolic blood pressure 124 mm[Hg] Cyn Ramires MD Work Phone: [facility] 05-01-2022 09:51-0400 Body temperature 98.01 [degF] Treatment Rej Work Phone: [facility] 05-01-2022 09:51-0400 Diastolic blood pressure 87 mm[Hg] Treatment Rej Work Phone: [facility] 05-01-2022 09:51-0400 Heart rate 106 /min Treatment Rej Work Phone: [facility] 05-01-2022 09:51-0400 Respiratory rate 18 /min Treatment Rej Work Phone: [facility] 05-01-2022 09:51-0400 Systolic blood pressure 123 mm[Hg] Treatment Rej Work Phone: [facility] 04-23-2022 09:49-0500 Body weight 106.91 kg Juan Francisco Hutchinson APRN.CLINICAL TRIAL DATA MANAGER Work Phone: [facility] 04-23-2022 09:49-0500 Diastolic blood pressure 77 mm[Hg] Juan Francisco Hutchinson APRN.CLINICAL TRIAL DATA MANAGER Work Phone: [facility] 04-23-2022 09:49-0500 Heart rate 99 /min Juan Francisco Hutchinson APRN.CLINICAL TRIAL DATA MANAGER Work Phone: [facility] 04-23-2022 09:49-0500 Systolic blood pressure 113 mm[Hg] Juna Francisco Hutchinson APRN.CLINICAL TRIAL DATA MANAGER Work Phone: [facility] 03-07-2022 11:37-0500 Body temperature 98.4 [degF] Cyn Ramires MD Work Phone: [facility] 03-07-2022 11:37-0500 Diastolic blood pressure 70 mm[Hg] Cyn Ramires MD Work Phone: [facility] 03-07-2022 11:37-0500 Heart rate 106 /min Cyn Ramires MD Work Phone: [facility] 03-07-2022 11:37-0500 SaO2% (BldA) [Mass fraction] 98 % Cyn Ramires MD Work Phone: [facility] 03-07-2022 11:37-0500 Systolic blood pressure 113 mm[Hg] Cyn Ramires MD Work Phone: [facility] 02-14-2022 12:23-0500 Body temperature 96.8 [degF] Treatment Rej Work Phone: [facility] 02-14-2022 12:23-0500 Diastolic blood pressure 89 mm[Hg] Treatment Rej Work Phone: [facility] 02-14-2022 12:23-0500 Heart rate 102 /min Treatment Rej Work Phone: [facility] 02-14-2022 12:23-0500 Systolic blood pressure 134 mm[Hg] Treatment Rej Work Phone: [facility] 01-25-2022 14:37-0500 Body temperature 98.6 [degF] Juan Francisco Hutchinson APRN.CLINICAL TRIAL DATA MANAGER Work Phone: [facility] 01-25-2022 14:37-0500 Body weight 106.82 kg Juan Francisco Hutchinson APRN.CLINICAL TRIAL DATA MANAGER Work Phone: [facility] 01-25-2022 14:37-0500 Diastolic blood pressure 67 mm[Hg] Juan Francisco Hutchinson APRN.CLINICAL TRIAL DATA MANAGER Work Phone: [facility] 01-25-2022 14:37-0500 Heart rate 109 /min Juan Francisco Hutchinson APRN.CLINICAL TRIAL DATA MANAGER Work Phone: [facility] 01-25-2022 14:37-0500 SaO2% (BldA) [Mass fraction] 96 % Juan Francisco Hutchinson APRN.CLINICAL TRIAL DATA MANAGER Work Phone: [facility] 01-25-2022 14:37-0500 Systolic blood pressure 115 mm[Hg] Juan Francisco Hutchinson APRN.CLINICAL TRIAL DATA MANAGER Work Phone: [facility] 01-18-2022 10:30-0500 Body temperature 96.91 [degF] Treatment Rej Work Phone: [facility] 01-18-2022 10:30-0500 Diastolic blood pressure 86 mm[Hg] Treatment Rej Work Phone: [facility] 01-18-2022 10:30-0500 Heart rate 108 /min Treatment Rej Work Phone: [facility] 01-18-2022 10:30-0500 Systolic blood pressure 125 mm[Hg] Treatment Rej Work Phone: [facility] 12-27-2021 09:25-0500 Body temperature 97.5 [degF] Sylvia Mancilla APRN.CLINICAL TRIAL DATA MANAGER Work Phone: [facility] 12-27-2021 09:25-0500 Body weight 105.01 kg Sylvia Mancilla APRN.CLINICAL TRIAL DATA MANAGER Work Phone: [facility] 12-27-2021 09:25-0500 Diastolic blood pressure 74 mm[Hg] Sylvia Mancilla APRN.CLINICAL TRIAL DATA MANAGER Work Phone: [facility] 12-27-2021 09:25-0500 Heart rate 103 /min Sylvia Mancilla APRN.CLINICAL TRIAL DATA MANAGER Work Phone: [facility] 12-27-2021 09:25-0500 SaO2% (BldA) [Mass fraction] 98 % Sylvia Mancilla APRN.CLINICAL TRIAL DATA MANAGER Work Phone: [facility] 12-27-2021 09:25-0500 Systolic blood pressure 116 mm[Hg] Sylvia Mancilla APRN.CLINICAL TRIAL DATA MANAGER Work Phone: [facility] 12-06-2021 13:34-0400 Body temperature 97.11 [degF] Treatment Rej Work Phone: [facility] 12-06-2021 13:34-0400 Diastolic blood pressure 88 mm[Hg] Treatment Rej Work Phone: [facility] 12-06-2021 13:34-0400 Heart rate 92 /min Treatment Rej Work Phone: [facility] 12-06-2021 13:34-0400 Respiratory rate 18 /min Treatment Rej Work Phone: [facility] 12-06-2021 13:34-0400 Systolic blood pressure 199 mm[Hg] Treatment Rej Work Phone: [facility] 11-15-2021 13:08-0400 Body height 181 cm Cyn Ramires MD Work Phone: [facility] 11-15-2021 13:08-0400 Body temperature 98.71 [degF] Cyn Ramires MD Work Phone: [facility] 11-15-2021 13:08-0400 Body weight 102.78 kg Cyn Ramires MD Work Phone: [facility] 11-15-2021 13:08-0400 Diastolic blood pressure 77 mm[Hg] Cyn Ramires MD Work Phone: [facility] 11-15-2021 13:08-0400 Heart rate 100 /min Cyn Ramires MD Work Phone: [facility] 11-15-2021 13:08-0400 SaO2% (BldA) [Mass fraction] 98 % Cyn Ramires MD Work Phone: [facility] 11-15-2021 13:08-0400 Systolic blood pressure 118 mm[Hg] Cyn Ramires MD Work Phone: [facility] 10-26-2021 13:20-0400 Body temperature 97.7 [degF] Juan Francisco Hutchinson APRN.CLINICAL TRIAL DATA MANAGER Work Phone: [facility] 10-26-2021 13:20-0400 Body weight 102.97 kg Juan Francisco Hutchinson PHOTOTYPESETTER OPERATOR.CLINICAL TRIAL DATA MANAGER Work Phone: [facility] 10-26-2021 13:20-0400 Diastolic blood pressure 88 mm[Hg] Juan Francisco Hutchinson APRN.CLINICAL TRIAL DATA MANAGER Work Phone: [facility] 10-26-2021 13:20-0400 Heart rate 100 /min Juan Francisco Hutchinson APRN.CLINICAL TRIAL DATA MANAGER Work Phone: [facility] 10-26-2021 13:20-0400 SaO2% (BldA) [Mass fraction] 97 % Juan Francisco Hutchinson APRN.CLINICAL TRIAL DATA MANAGER Work Phone: [facility] 10-26-2021 13:20-0400 Systolic blood pressure 117 mm[Hg] Juan Francisco Hutchinson APRN.CLINICAL TRIAL DATA MANAGER Work Phone: [facility] 10-26-2021 11:28-0400 Body temperature 97.59 [degF] Treatment Rej Work Phone: [facility] 10-26-2021 11:28-0400 Diastolic blood pressure 82 mm[Hg] Treatment Rej Work Phone: [facility] 10-26-2021 11:28-0400 Heart rate 108 /min Treatment Rej Work Phone: [facility] 10-26-2021 11:28-0400 Systolic blood pressure 133 mm[Hg] Treatment Rej Work Phone: [facility] 10-25-2021 10:01-0400 Body temperature 98.2 [degF] Sylvia Mancilla APRN.CLINICAL TRIAL DATA MANAGER Work Phone: [facility] 10-25-2021 10:01-0400 Body weight 102.78 kg Sylvia Mancilla APRN.CLINICAL TRIAL DATA MANAGER Work Phone: [facility] 10-25-2021 10:01-0400 Diastolic blood pressure 87 mm[Hg] Sylvia Mancilla APRN.CLINICAL TRIAL DATA MANAGER Work Phone: [facility] 10-25-2021 10:01-0400 Heart rate 102 /min Sylvia Mancilla APRN.CLINICAL TRIAL DATA MANAGER Work Phone: [facility] 10-25-2021 10:01-0400 SaO2% (BldA) [Mass fraction] 97 % Sylvia Mancilla APRN.CLINICAL TRIAL DATA MANAGER Work Phone: [facility] 10-25-2021 10:01-0400 Systolic blood pressure 112 mm[Hg] Sylvia Mancilla APRN.CLINICAL TRIAL DATA MANAGER Work Phone: [facility] 09-06-2021 12:40-0400 Body temperature 97.7 [degF] Treatment Rej Work Phone: [facility] 09-06-2021 12:40-0400 Body weight 101.88 kg Treatment Rej Work Phone: [facility] 09-06-2021 12:40-0400 Diastolic blood pressure 73 mm[Hg] Treatment Rej Work Phone: [facility] 09-06-2021 12:40-0400 Heart rate 109 /min Treatment Rej Work Phone: [facility] 09-06-2021 12:40-0400 Systolic blood pressure 111 mm[Hg] Treatment Rej Work Phone: [facility] 07-26-2021 11:03-0400 Body temperature 97.3 [degF] Treatment Rej Work Phone: [facility] 07-26-2021 11:03-0400 Diastolic blood pressure 83 mm[Hg] Treatment Rej Work Phone: [facility] 07-26-2021 11:03-0400 Heart rate 99 /min Treatment Rej Work Phone: [facility] 07-26-2021 11:03-0400 Respiratory rate 18 /min Treatment Rej Work Phone: [facility] 07-26-2021 11:03-0400 Systolic blood pressure 126 mm[Hg] Treatment Rej Work Phone: [facility] 07-05-2021 08:31-0400 Body temperature 98.1 [degF] Treatment Rej Work Phone: [facility] 07-05-2021 08:31-0400 Diastolic blood pressure 87 mm[Hg] Treatment Rej Work Phone: [facility] 07-05-2021 08:31-0400 Heart rate 103 /min Treatment Rej Work Phone: [facility] 07-05-2021 08:31-0400 Respiratory rate 18 /min Treatment Rej Work Phone: [facility] 07-05-2021 08:31-0400 Systolic blood pressure 121 mm[Hg] Treatment Rej Work Phone: [facility] 06-14-2021 08:25-0400 Body height 181 cm Cyn Ramires MD Work Phone: [facility] 06-14-2021 08:25-0400 Body temperature 98.01 [degF] Cyn Ramires MD Work Phone: [facility] 06-14-2021 08:25-0400 Diastolic blood pressure 74 mm[Hg] Cyn Ramires MD Work Phone: [facility] 06-14-2021 08:25-0400 Heart rate 90 /min Cyn Ramires MD Work Phone: [facility] 06-14-2021 08:25-0400 Systolic blood pressure 108 mm[Hg] Cyn Ramires MD Work Phone: [facility] 05-17-2021 12:31-0400 Body temperature 97.2 [degF] Treatment Rej Work Phone: [facility] 05-17-2021 12:31-0400 Diastolic blood pressure 82 mm[Hg] Treatment Rej Work Phone: [facility] 05-17-2021 12:31-0400 Heart rate 94 /min Treatment Rej Work Phone: [facility] 05-17-2021 12:31-0400 SaO2% (BldA) [Mass fraction] 97 % Treatment Rej Work Phone: [facility] 05-17-2021 12:31-0400 Systolic blood pressure 124 mm[Hg] Treatment Rej Work Phone: [facility] 05-17-2021 11:09-0400 Body temperature 98.01 [degF] Juan Francisco Hutchinson APRN.CLINICAL TRIAL DATA MANAGER Work Phone: [facility] 05-17-2021 11:09-0400 Diastolic blood pressure 72 mm[Hg] Juan Francisco Hutchinson APRN.CLINICAL TRIAL DATA MANAGER Work Phone: [facility] 05-17-2021 11:09-0400 Heart rate 88 /min Juan Francisco Hutchinson APRN.CLINICAL TRIAL DATA MANAGER Work Phone: [facility] 05-17-2021 11:09-0400 SaO2% (BldA) [Mass fraction] 98 % Juan Francisco Hutchinson APRN.CLINICAL TRIAL DATA MANAGER Work Phone: [facility] 05-17-2021 11:09-0400 Systolic blood pressure 120 mm[Hg] Juan Francisco Hutchinson APRN.CLINICAL TRIAL DATA MANAGER Work Phone: [facility] 02-02-2021 10:15-0500 Body height 182.88 cm Kylie Shawault Other [facility] Other 02-02-2021 10:15-0500 Body temperature 97.4 [degF] Kylie Shawault Other [facility] Other 02-02-2021 10:15-0500 Respiratory rate 18 /min Kylie Shawault Other [employer] Other 02-02-2021 10:15-0500 SaO2% (BldA) [Mass fraction] 92 % Kylie Shawault Other [employer] Other Encounters Encounter Date Encounter Type Care Provider Facility Start: 04-01-2023 Telephone encounter Linette figueroa APRN.CLINICAL TRIAL DATA MANAGER Work Phone: Hematology/Oncology Comment on above: Lab Orders Start: 03-29-2023 End: 03-29-2023 ambulatory LINETTE SKINNER Not Available Start: 03-29-2023 Refill Linette Skinner SPORTS ANNOUNCER Work Phone: [facility] Comment on above: COVID-19 Start: 03-29-2023 End: 03-29-2023 Office outpatient visit 15 minutes Linette Skinner [employer]OR[employer] ANNOUNCER Work Phone: [facility] Comment on above: COVID-19 (Primary Dx ) Start: 03-28-2023 End: 03-28-2023 Office outpatient visit 25 minutes Kylie Nunes PHOTOTYPESETTER OPERATOR.CLINICAL TRIAL DATA MANAGER Work Phone: Pulmonary Medicine Comment on above: Restrictive lung dis ease (Primary Dx); Chronic cough; Post-nasal drip; Hoarseness; Dysphagia, unspecified type; History of pulmonary embolism Start: 03-28-2023 End: 03-28-2023 ambulatory JOSE VAIL Pulmonary Medicine Comment on above: Spirometry Start: 03-28-2023 End: 03-28-2023 Patient encounter procedure Pulm Lab [facility] Rej 2 Work Phone: [facility] Start: 03-20-2023 End: 03-20-2023 ambulatory JOSE A GENNA Facility:[facility] Start: 03-07-2023 End: 03-07-2023 ambulatory JOSE A VAIL Facility:[facility] Start: 02-25-2023 End: 02-25-2023 ambulatory LINETTE SKINNER Not Available Start: 02-19-2023 End: 02-19-2023 ambulatory JOSE A GENNA Facility:[facility] Start: 02-12-2023 End: 02-12-2023 ambulatory SHEILA LIN Not Available Start: 01-29-2023 End: 01-29-2023 Departed Referred MD Jose Vail Work Phone: [facility] [place] Work Phone: Start: 01-29-2023 End: 01-29-2023 ambulatory MD Jose Vail Work Phone: [employer] Other Start: 01-29-2023 Office outpatient vi sit 15 minutes Keke Bright [facility] Start: 01-28-2023 End: 01-28-2023 ambulatory JOSE VAIL Facility:[facility] Start: 01-28-2023 Telephone encounter Alexsander schmidt MD Work Phone: Hematology/Oncology Comment on above: Orders Start: 01-06-2023 Refill Juan Francisco Hutchinson APRN.CLINICAL TRIAL DATA MANAGER Work Phone: Palliative Medicine Comment on above: Refill Request Start: 01-02-2023 Telephone encounter Alexsander schmidt MD Work Phone: Radiation Oncology Comment on above: Results Start: 01-01-2023 End: 01-01-2023 ambulatory Alexsander Ledezma MD Work Phone: Hematology/Oncology Comment on above: 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); Autologous bone marrow transplantation status (HCC); Restrictive lung disease; History of DVT (deep vein thrombosis); Chemotherapy-induced neuropathy (HCC) ; Psoriasis; Cancer associated pain; Acquired hypothyroidism Start: 01-01-2023 End: 01-01-2023 Patient encounter procedure Alexsander Ledezma MD Work Phone: [facility] Start: 12-31-2022 Chart abstracting Alexsander kumar MD Work Phone: Hematology/Oncology Start: 12-20-2022 End: 12-20-2022 ambulatory JOSE VAIL Facility:[facility] Start: 12-16-2022 ambulatory Summer Carver MD Work Phone: [facility] Start: 12-16-2022 Patient encounter procedure Summer Carver MD Work Phone: Pulmonary Medicine Comment on above: Appointment Start: 11-28-2022 Refill Cyn Ramires MD Work Phone: Hematology Comment on above: Refill Request Start: 11-26-2022 ambulatory Cyn Ramires MD Work Phone: [facility] Start: 11-26-2022 Patient encounter procedure Cyn Ramires MD Work Phone: Hematology Comment on above: Appointment Start: 11-13-2022 Refill Sylvia OTT RN.CLINICAL TRIAL DATA MANAGER Work Phone: Hematology Comment on above: Refill Request Start: 11-08-2022 Refill Cyn Ramires MD Work Phone: Hematology Comment on above: Refill Request Start: 11-05-2022 Refill Charlee delvalle PHOTOTYPESETTER OPERATOR.CLINICAL TRIAL DATA MANAGER Work Phone: [facility] Comment on above: Refill Request Start: 10-25-2022 Refill Cyn Ramires MD Work Phone: Hematology Comment on above: Refill Request Start: 10-23-2022 ambulatory Juan Francisco Hutchinson APRN.CLINICAL TRIAL DATA MANAGER Work Phone: Palliative Medicine Comment on above: Lyrica Start: 10-18-2022 Telephone encounter Kylie Mosher RN [facility] Comment on above: Insurance Authorizat ion Start: 10-18-2022 End: 10-18-2022 ambulatory JOSE A VAIL Facility:[facility] Start: 10-18-2022 End: 10-18-2022 Patient encounter procedure Juan Francisco Hutchinson APRN.CLINICAL TRIAL DATA MANAGER Work Phone: Palliative Medicine Comment on above: Palliative care by s pecialist (Primary Dx); Nodular sclerosing Hodgkin's lymphoma, unspecified body region (HCC); Cancer related pain; Opioid use agreement exists; Muscle cramps Start: 10-18-2022 End: 10-18-2022 Nursing evaluation of patient and report Nurse Derm [facility] Paul Work Phone: Dermatology [place] Comment on above: Hidradenitis suppura tiva (Primary Dx); Painful skin lesion Start: 10-08-2022 Refill Juan Francisco Hutchinson APRN.CLINICAL TRIAL DATA MANAGER Work Phone: [facility] Comment on above: Refill Request Start: 10-06-2022 Refill Juan Francisco Hutchinson APRN.CLINICAL TRIAL DATA MANAGER Work Phone: [facility] Comment on above: Refill Request Start: 10-01-2022 Refill Cyn Ramires MD Work Phone: Hematology Comment on above: Refill Request Start: 09-13-2022 End: 09-13-2022 ambulatory SUMMER MEHUL Facility:[facility] Start: 09-13-2022 End: 09-13-2022 Patient encounter procedure Summer Carver MD Work Phone: Pulmonary Medicine Comment on above: Restrictive lung dis ease (Primary Dx); 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); Autologous bone marrow transplantation status (HCC); Chronic cough; History of pulmonary embolism Start: 09-10-2022 Refill Cyn Ramires MD Work Phone: Hematology Comment on above: Refill Request Start: 08-30-2022 ambulatory Cyn Ramires MD Work Phone: Hematology Comment on above: Ativan Start: 08-29-2022 ambulatory Cyn Ramires MD Work Phone: Hematology Comment on above: Ativan Start: 08-29-2022 Refill Cyn Ramires MD Work Phone: Hematology Comment on above: Refill Request Start: 08-27-2022 Refill Cyn Ramires MD Work Phone: Hematology Comment on above: Refill Request Start: 08-27-2022 Refill Cyn Ramires MD Work Phone: Hematology Comment on above: Refill Request Start: 08-22-2022 End: 08-22-2022 ambulatory [facility] Facility:[facility] Start: 08-22-2022 End: 08-22-2022 ambulatory Cyn Ramires MD Work Phone: Hematology Comment on above: 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) Start: 08-22-2022 End: 08-22-2022 Patient encounter procedure Cyn Ramires MD Work Phone: [facility] Start: 08-14-2022 End: 08-14-2022 ambulatory [facility] Facility:[facility] Start: 08-13-2022 Refill Juan Francisco Hutchinson APRN.CNP Work Phone: [facility] [address] [facility] Palliative Medicine Comment on above: Refill Request Start: 08-09-2022 Refill Cyn Ramires MD Work Phone: Hematology Comment on above: Refill Request Start: 08-07-2022 Refill Cyn Ramires MD Work Phone: Hematology Comment on above: Refill Request Start: 08-02-2022 Telephone encounter Ellanan schafer PHOTOTYPESETTER OPERATOR.CLINICAL TRIAL DATA MANAGER Work Phone: Pulmonary Medicine Comment on above: Patient Update Start: 08-01-2022 End: 08-01-2022 ambulatory JOSE A VAIL Facility:[facility] Start: 08-01-2022 End: 08-01-2022 Patient encounter procedure Ella Chan PHOTOTYPESETTER OPERATOR.CLINICAL TRIAL DATA MANAGER Work Phone: Pulmonary Medicine Comment on above: Chronic cough (Prima ry Dx); Productive cough; Dyspnea on exertion; Opacity of lung on imaging study Start: 07-31-2022 End: 07-31-2022 ambulatory NOVA BRIDGES Facility:[facility] Start: 07-25-2022 ambulatory Nova Bridges PHOTOTYPESETTER OPERATOR.CLINICAL TRIAL DATA MANAGER Work Phone: [facility] Start: 07-25-2022 Patient encounter procedure Nova Bridges PHOTOTYPESETTER OPERATOR.CLINICAL TRIAL DATA MANAGER Work Phone: Dermatology [place] Comment on above: Appointment Start: 07-24-2022 Refill Cyn Ramires MD Work Phone: Hematology Comment on above: Refill Request Start: 07-22-2022 ambulatory Cyn Ramires MD Work Phone: Hematology Comment on above: Ativan Start: 07-19-2022 End: 07-19-2022 ambulatory JOSE A MCHENRY Facility:[facility] Start: 07-19-2022 End: 07-19-2022 Patient encounter procedure Juan Francisco Hutchinson PHOTOTYPESETTER OPERATOR.CLINICAL TRIAL DATA MANAGER Work Phone: Palliative Medicine Comment on above: Palliative care by s pecialist (Primary Dx); Opioid use agreement exists; Cancer related pain; Chemotherapy-induced neuropathy (HCC); 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); Muscle cramps Start: 07-18-2022 End: 07-18-2022 ambulatory Juan Francisco Emely PHOTOTYPESETTER OPERATOR.CLINICAL TRIAL DATA MANAGER Work Phone: [facility] Comment on above: Nodular sclerosing H odgkin's lymphoma, unspecified body region (HCC) (Primary Dx) Start: 07-18-2022 End: 07-18-2022 Patient encounter procedure Juan Francisco Hutchinson PHOTOTYPESETTER OPERATOR.CLINICAL TRIAL DATA MANAGER Work Phone: Palliative Medicine Comment on above: Appointment Start: 07-17-2022 End: 07-17-2022 ambulatory Melissa Pycraft RT(R) Radiology Ct Scan Comment on above: Radiology CT Start: 07-17-2022 Patient encounter procedure Melissa Pycraft RT(R) [facility] Start: 07-16-2022 Refill Juan Francisco Hutchinson PHOTOTYPESETTER OPERATOR.CLINICAL TRIAL DATA MANAGER Work Phone: [facility] Include [address] [facility] Palliative Medicine Comment on above: Refill Request Start: 06-21-2022 End: 06-21-[address] PEGUERO [facility] Facility: Start: 06-13-2022 Telephone encounter Ella schafer PHOTOTYPESETTER OPERATOR.CLINICAL TRIAL DATA MANAGER Work Phone: Pulmonary Medicine Comment on above: New Medication Start: 06-12-2022 End: 06-12-2022 ambulatory JOSE SALCEDOE Facility:[facility] Start: 06-12-2022 End: 06-12-2022 ambulatory Cyn Ramires MD Work Phone: Hematology Comment on above: 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); Uterine leiomyoma, unspecified location Start: 06-12-2022 End: 06-12-2022 Telemedicine consultation with patient Cyn Ramires MD Work Phone: [facility] Start: 06-11-2022 Refill Cyn Ramires MD Work Phone: Hematology Comment on above: Refill Request Start: 06-09-2022 ambulatory Cyn Ramires MD Work Phone: [facility] Start: 06-09-2022 Patient encounter procedure Cyn Ramires MD Work Phone: Hematology Comment on above: Appointment Start: 06-04-2022 End: 06-04-2022 ambulatory [facility] Facility:[facility] Start: 05-31-2022 End: 05-31-2022 ambulatory [facility] Facility:[facility] Start: 05-31-2022 End: 05-31-2022 Subsequent hospital visit by physician Lauren [facility] Leta Work Phone: Radiology Comment on above: Acute cough [R05.1] Start: 05-22-2022 End: 05-22-2022 ambulatory [facility] Facility:[facility] Start: 05-18-2022 End: 05-18-2022 Telemedicine consultation with patient Estrada Del Valle MD Work Phone: [facility] Start: 05-18-2022 End: 05-21-2022 ambulatory Cyn Ramires MD Work Phone: Hematology Comment on above: Labs NO SHOW (Primary Dx) Start: 05-14-2022 End: 05-14-2022 Refill Cyn Ramires MD Work Phone: Hematology Comment on above: Refill Request Start: 05-01-2022 End: 05-01-2022 ambulatory [facility] Facility:[facility] Start: 05-01-2022 End: 05-01-2022 ambulatory Treatment 10 Delfino Rej Work Phone: Hematology Comment on above: 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) Start: 04-30-2022 End: 04-30-2022 ambulatory [facility] Facility:[facility] Start: 04-25-2022 Telephone encounter Maye garcia RN Work Phone: Radiation Oncology Comment on above: Post Radiation Treat ment Follow Up (Second attempt) Start: 04-23-2022 End: 04-23-2022 ambulatory [facility] Facility:[facility] Start: 04-23-2022 End: 04-23-2022 Patient encounter procedure Juan Francisco Hutchinson PHOTOTYPESETTER OPERATOR.CLINICAL TRIAL DATA MANAGER Work Phone: Palliative Medicine Comment on above: Encounter for pallia tive care (Primary Dx); 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); Chemotherapy-induced neuropathy (HCC); Cancer related pain; Muscle cramps; Opioid use agreement exists Start: 04-20-2022 Telephone encounter Maye garcia RN Work Phone: Radiation Oncology Comment on above: Post Radiation Treat ment Follow Up Start: 04-16-2022 Refill Juan Francisco Hutchinson APRN.CNP Work Phone: [facility] Comment on above: Refill Request Start: 04-11-2022 Patient encounter procedure Estrada Del Valle MD Work Phone: [facility] Start: 04-11-2022 Radiation Oncology Note Estrada Del Valle MD Work Phone: Radiation Oncology Comment on above: Completion Note Start: 04-10-2022 End: 04-10-2022 ambulatory Treatment 9 Delfino Rej Work Phone: Hematology Comment on above: 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); Encounter for long-term (current) use of medications; Encounter for antineoplastic immunotherapy Start: 04-06-2022 End: 04-07-2022 ambulatory [facility] Facility:[facility] Start: 04-06-2022 End: 04-06-2022 ambulatory [facility] Facility:[facility] Start: 04-04-2022 End: 04-04-2022 ambulatory [facility] Facility:[facility] Start: 04-02-2022 End: 04-02-2022 ambulatory [facility] Facility:[facility] Start: 03-30-2022 Orders Only Tracy meléndez MD Work Phone: Hematology Comment on above: 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) Start: 03-23-2022 End: 03-23-2022 Patient encounter procedure [facility] Comment on above: 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) Start: 03-23-2022 Radiation Oncology Note [facility] Provider [facility] Department Comment on above: RTT Injection Treatment Planning Start: 03-23-2022 End: 03-23-2022 Nursing evaluation of patient and report Nurse Cathleen Main Work Phone: Radiation Oncology Comment on above: 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); Autologous bone marrow transplantation status (HCC) Start: 03-22-2022 Telephone encounter Dary Gonzalez RN Radiation Oncology Start: 03-15-2022 Refill Lesley Figureoa on PHOTOTYPESETTER OPERATOR.CLINICAL TRIAL DATA MANAGER Work Phone: [facility] [address] [facility] Palliative Medicine Comment on above: Refill Request Start: 03-12-2022 End: 03-12-2022 ambulatory Estrada Del Valle MD Work Phone: Radiation Oncology Comment on above: 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) Start: 03-12-2022 End: 03-12-2022 Telemedicine consultation with patient Estrada Del Valle MD Work Phone: [facility] Start: 03-07-2022 End: 03-07-2022 ambulatory Cyn Ramires MD Work Phone: Hematology Comment on above: Chemotherapy-induced neuropathy (HCC) (Primary Dx) Start: 03-07-2022 End: 03-07-2022 Patient encounter procedure Cyn Ramires MD Work Phone: [facility] Start: 03-05-2022 Refill Sylvia OTT RN.CLINICAL TRIAL DATA MANAGER Work Phone: Hematology Comment on above: Refill Request Start: 02-14-2022 End: 02-14-2022 ambulatory Treatment 11 Delfino Rej Work Phone: Hematology Comment on above: 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); Encounter for antineoplastic immunotherapy Start: 02-09-2022 Orders Only Antonia Lisa MD Work Phone: [facility] Provider [facility] Start: 01-25-2022 End: 01-26-2022 ambulatory JOSE Mikayla SALCEDOE Facility:[facility] Start: 01-25-2022 End: 01-25-2022 Patient encounter procedure Juan Francisco Hutchinson APRN.CLINICAL TRIAL DATA MANAGER Work Phone: [facility] Include [address] [facility] Palliative Medicine Comment on above: Encounter for pallia tive care (Primary Dx); Opioid use agreement exists; Anxiety; Cancer related pain; Chemotherapy-induced neuropathy (HCC); 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); Muscle cramps Start: 01-22-2022 Refill Juan Francisco Hutchinson APRN.CLINICAL TRIAL DATA MANAGER Work Phone: Counts Include [address] [facility] Palliative Medicine Comment on above: Refill Request Start: 01-19-2022 Refill Cyn Ramires MD Work Phone: Hematology Comment on above: Refill Request Start: 01-18-2022 End: 01-18-2022 ambulatory Treatment 12 Delfino Rej Work Phone: Hematology Comment on above: 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) Start: 01-17-2022 ambulatory Cyn Ramires MD Work Phone: [facility] Start: 01-17-2022 Patient encounter procedure Cyn Ramires MD Work Phone: Hematology Comment on above: Appointment Start: 01-15-2022 Refill Cheryl velázquez APRN.CLINICAL TRIAL DATA MANAGER Work Phone: [facility] Include [address] [facility] Palliative Medicine Comment on above: Refill Request Start: 01-14-2022 Refill Cyn Ramires MD Work Phone: Hematology Comment on above: Refill Request Start: 01-02-2022 Telephone encounter Caro Srinivasan RN Hematology Comment on above: Care Coordination Start: 12-27-2021 End: 12-27-2021 ambulatory Treatment 11 Delfino Rej Work Phone: Hematology Comment on above: 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); Encounter for antineoplastic immunotherapy; Encounter for long-term (current) use of medications Nodular sclerosing H odgkin's lymphoma, unspecified body region (HCC) (Primary Dx); JOE (dyspnea on exertion); Chronic cough; Chest tightness Start: 12-27-2021 End: 12-27-2021 Patient encounter procedure Sylvia Mancilla PHOTOTYPESETTER OPERATOR.CLINICAL TRIAL DATA MANAGER Work Phone: [facility] Start: 12-17-2021 Refill Juan Francisco Emely PHOTOTYPESETTER OPERATOR.CLINICAL TRIAL DATA MANAGER Work Phone: [facility] Include [address] Palliative Medicine Comment on above: Refill Request Start: 12-11-2021 Refill Cyn Ramires MD Work Phone: Hematology Comment on above: Refill Request Start: 12-07-2021 End: 12-07-2021 Patient encounter procedure Nova Webstertz PHOTOTYPESETTER OPERATOR.CLINICAL TRIAL DATA MANAGER Work Phone: Dermatology [place] Comment on above: Acne vulgaris (Prima ry Dx) Start: 12-06-2021 End: 12-06-2021 ambulatory Treatment 5 Delfino Rej Work Phone: Hematology Comment on above: 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) Start: 12-04-2021 Refill Cyn Ramires MD Work Phone: Hematology Comment on above: Refill Request Start: 12-03-2021 Refill Sylvia OTT RN.CLINICAL TRIAL DATA MANAGER Work Phone: Hematology Comment on above: Refill Request Start: 11-15-2021 End: 11-15-2021 ambulatory Cyn Ramires MD Work Phone: Hematology Comment on above: Nodular sclerosing H odgkin's lymphoma, unspecified body region (HCC) (Primary Dx); History of pulmonary embolism; Chemotherapy-induced neuropathy (HCC); Muscle cramps 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) Start: 11-15-2021 End: 11-15-2021 Patient encounter procedure Cyn Ramires MD Work Phone: [facility] Start: 11-13-2021 ambulatory Cyn Ramires MD Work Phone: Hematology Comment on above: PET scan Start: 11-13-2021 Telephone encounter Jeny Zaidi Hematology/Oncology Comment on above: Orders Start: 11-07-2021 Refill Cyn Ramires MD Work Phone: Hematology Comment on above: Refill Request Start: 10-31-2021 Refill Juan Francisco Hutchinson APRN.CLINICAL TRIAL DATA MANAGER Work Phone: [facility] Include [address] [facility] Palliative Medicine Comment on above: Refill Request Start: 10-26-2021 End: 10-26-2021 Patient encounter procedure Juan Francisco Hutchinson APRN.CLINICAL TRIAL DATA MANAGER Work Phone: Counts Include [address] Palliative Medicine Comment on above: Encounter for pallia tive care (Primary Dx); Chemotherapy-induced neuropathy (HCC); 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); Muscle cramps Start: 10-26-2021 End: 10-27-2021 ambulatory Treatment 6 Delfino Rej Work Phone: Hematology Comment on above: 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); Encounter for antineoplastic immunotherapy Start: 10-25-2021 End: 10-25-2021 ambulatory Treatment 8 Delfino Rej Work Phone: Hematology Comment on above: 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, unspecified body region (HCC) (Primary Dx); Encounter for antineoplastic immunotherapy Start: 10-25-2021 End: 10-25-2021 Patient encounter procedure Sylvia Mancilla APRN.CLINICAL TRIAL DATA MANAGER Work Phone: [facility] Start: 10-17-2021 ambulatory Cyn Ramires MD Work Phone: Hematology Comment on above: Insurance Start: 10-16-2021 Refill Cheryl velázquez PHOTOTYPESETTER OPERATOR.CLINICAL TRIAL DATA MANAGER Work Phone: Counts Include [address] Palliative Medicine Comment on above: Refill Request Start: 10-04-2021 Refill Cyn Ramires MD Work Phone: Hematology Comment on above: Refill Request Start: 10-02-2021 Orders Only Cyn Ramires MD Work Phone: Hematology/Oncology Comment on above: Nodular sclerosing H odgkin's lymphoma, unspecified body region (HCC) (Primary Dx) Start: 10-02-2021 Refill Joanne paul PA-C Work Phone: Pulmonary Medicine Comment on above: Refill Request Start: 09-22-2021 ambulatory Cyn Ramires MD Work Phone: [facility] Start: 09-22-2021 Patient encounter procedure Cyn Ramires MD Work Phone: Hematology Comment on above: Appointment Start: 09-22-2021 Telephone encounter Caro Srinivasan RN Hematology Comment on above: Novelty Maker - Marianne Rios Follow Up Start: 09-11-2021 Refill Cyn Ramires MD Work Phone: Hematology Comment on above: Refill Request Start: 09-06-2021 End: 09-06-2021 ambulatory Treatment 3 Delfino Rej Work Phone: Hematology Comment on above: 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) Start: 09-05-2021 End: 09-05-2021 Patient encounter procedure Nova Bridges PHOTOTYPESETTER OPERATOR.CLINICAL TRIAL DATA MANAGER Work Phone: Dermatology [place] Comment on above: Hidradenitis suppura tiva (Primary Dx); Painful skin lesion; Dermatofibroma of left knee Start: 09-03-2021 Refill Cyn Ramires MD Work Phone: Hematology Comment on above: Refill Request Start: 09-02-2021 Refill Gurpreet Rios Work Phone: [facility] Include [address] Palliative Medicine Comment on above: Refill Request Start: 08-30-2021 Refill Cyn Ramires MD Work Phone: Hematology Comment on above: Refill Request Start: 08-16-2021 End: 08-16-2021 ambulatory Treatment 6 Delfino Rej Work Phone: Hematology Comment on above: 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) Start: 08-14-2021 Refill Juan Francisco Hutchinson APRN.CLINICAL TRIAL DATA MANAGER Work Phone: Counts Include [address] Palliative Medicine Comment on above: Refill Request Start: 08-03-2021 Telephone encounter Kristina Pete RN [employer] Comment on above: Care Coordination (P all med referral) Start: 07-31-2021 Orders Only Cyn Ramires MD Work Phone: Hematology Comment on above: Muscle cramps; Nodular sclerosis classical Hodgkin lymphoma (HCC) Start: 07-30-2021 ambulatory Juan Francisco Hutchinson PHOTOTYPESETTER OPERATOR.CLINICAL TRIAL DATA MANAGER Work Phone: [facility] Start: 07-30-2021 Patient encounter procedure Juan Francisco Hutchinson PHOTOTYPESETTER OPERATOR.CLINICAL TRIAL DATA MANAGER Work Phone: Counts Include [address] [facility] Palliative Medicine Comment on above: Saturday appointmen t Start: 07-28-2021 End: 07-28-2021 Patient encounter procedure Nova Bridges PHOTOTYPESETTER OPERATOR.CLINICAL TRIAL DATA MANAGER Work Phone: Dermatology [place] Comment on above: Hidradenitis suppura tiva (Primary Dx); Painful skin lesion Start: 07-26-2021 End: 07-26-2021 ambulatory Treatment 12 Delfino Rej Work Phone: Hematology Comment on above: 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) Start: 07-24-2021 End: 07-24-[address] DOCTOR THIBODEAUX Facility: Start: 2021 Refill Cyn Ramires MD Work Phone: Hematology Comment on above: Refill Request Start: 07-05-2021 End: 07-05-2021 ambulatory Treatment 6 Delfino Rej Work Phone: Hematology Comment on above: 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) Start: 06-30-2021 Refill Summer Carver MD Work Phone: Pulmonary Medicine Comment on above: Refill Request Start: 06-29-2021 Refill Cyn Ramires MD Work Phone: Hematology Comment on above: Refill Request Start: 06-15-2021 Refill Juan Francisco Hutchinson APRN.CLINICAL TRIAL DATA MANAGER Work Phone: Counts Include [address] Palliative Medicine Comment on above: Refill Request Start: 06-14-2021 End: 06-14-2021 ambulatory Cyn Ramires MD Work Phone: Hematology Comment on above: Hodgkin lymphoma, un specified Hodgkin lymphoma type, unspecified body region (HCC) (Primary Dx); 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); Encounter for antineoplastic immunotherapy Start: 06-14-2021 End: 06-14-2021 Patient encounter procedure Cyn Ramires MD Work Phone: [facility] Start: 06-06-2021 Refill Cyn Ramires MD Work Phone: Hematology Comment on above: Refill Request Start: 06-02-2021 Refill Cyn Ramires MD Work Phone: Hematology Comment on above: Refill Request Start: 05-19-2021 Telephone encounter Cyn rios MD Work Phone: Hematology Comment on above: Care Coordination (s inus symptoms ) Start: 05-17-2021 End: 05-17-2021 ambulatory Treatment 4 Delfino Rej Work Phone: Hematology Comment on above: 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) Start: 05-17-2021 End: 05-17-2021 Patient encounter procedure Juan Francisco Hutchinson APRN.CLINICAL TRIAL DATA MANAGER Work Phone: Counts Include [address] [facility] Palliative Medicine Comment on above: Encounter for pallia tive care (Primary Dx); 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); Cancer related pain; Chemotherapy-induced neuropathy (HCC); Muscle cramps; Anxiety Refill Request Start: 05-17-2021 Refill Sylvia OTT RN.CLINICAL TRIAL DATA MANAGER Work Phone: Hematology Comment on above: Refill Request Start: 05-17-2021 Telephone encounter Zaira DELANEY Work Phone: Hematology Comment on above: Novelty Maker - O ther Start: 05-16-2021 ambulatory Cyn Ramires MD Work Phone: [facility] Start: 05-16-2021 Patient encounter procedure Cyn Ramires MD Work Phone: Hematology Comment on above: Appointment 05/17 Start: 02-02-2021 End: 02-02-2021 ambulatory Kylie Alex Other [employer] Other Start: 02-02-2021 Office outpatient vi sit 15 minutes Kylie Johnson [facility] Procedures Date Procedure Procedure Detail Performing Clinician Start: 03-28-2023 Nitric oxide gas determination Ella Rocio PHOTOTYPESETTER OPERATOR.CLINICAL TRIAL DATA MANAGER Work Phone: Start: 03-28-2023 Co diffusing capacity L atnan Chan PHOTOTYPESETTER OPERATOR.CLINICAL TRIAL DATA MANAGER Work Phone: Start: 05-31-2022 Ct thorax w/o contra st material Cyn Ramires MD Work Phone: Start: 10-25-2021 Adult depression scr eening assessment Treatment Rej Work Phone: Start: 06-14-2021 Adult depression scr eening assessment Cyn Ramires MD Work Phone: Start: 03-08-2021 Adult depression scr eening assessment Sylvia Mancilla PHOTOTYPESETTER OPERATOR.CLINICAL TRIAL DATA MANAGER Work Phone: Start: 10-17-2018 Mammography Linette Colette y SPORTS ANNOUNCER Work Phone: Plan of Treatment Date Care Activity Detail Author Start: 03-11-2024 Urine microalbumin profile [facility] Start: 08-18-2023 Influenza vaccination Influenza Vacc ine (#1) [facility] Comment on above: Postponed from 10/19 (Patient Refused) Start: 07-04-2023 Medicare Annual Well ness (AWV) Medicare Annual Wellness (AWV) [facility] Start: 06-03-2023 End: 06-03-2023 Patient encounter procedure 06/03/2023 8:30 AM EDT Office Visit [facility] [id number] [place] [id number] Jose Vail MD [address] [place] [address] [facility] Start: 04-16-2023 End: 07-16-2023 CBC W Auto Differential panel - Blood CBC + DIFF Lab Routine 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 Work Phone: Comment on above: Expected: 04/16/2023 , Expires: 07/16/2023 Start: 02-18-2023 Depression Assessment Depression Ass essment [facility] Start: 01-29-2023 Bacteria identified in Urine by Culture [facility] Start: 01-28-2023 End: 04-29-2023 Cortisol [Mass/volume] in Serum or Plasma [facility] Work Phone: Comment on above: Expected: 01/28/2023 , Expires: 04/29/2023 Start: 10-25-2022 Adult depression screening assessment DEPRESSION SCREENING [facility] Start: 10-21-2022 Screening for malign ant neoplasm of cervix [facility] Start: 10-19-2022 Influenza vaccination C [facility] Start: 08-01-2022 End: 10-01-2022 Bacteria identified in Unspecified specimen by Respiratory culture RESP CULTURE + STAIN Microbiology Routine Productive cough Expected: 08/01/2022, Expires: 10/01/[address] 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 Work Phone: Comment on above: Expected: 04/10/2022 , Expires: 06/10/2022 Start: 03-08-2022 Adult depression screening assessment DEPRESSION SCREENING [facility] Start: 02-18-2022 DEPRESSION ASSESSMENT DEPRESSION ASS ESSMENT [facility] Start: 01-25-2022 End: 03-27-2022 PAIN PANEL, UR QUANT 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 Work Phone: Comment on above: Expected: 09/06/2021 , Expires: 11/06/2021 Start: 02-18-2021 DEPRESSION ASSESSMENT DEPRESSION ASS ESSMENT [facility] Start: 10-19-2020 Influenza vaccination INFLUENZA (#1) [facility] Start: 09-08-2019 HPV TESTING HPV TESTING [facility] Start: 09-08-2019 Screening for malign ant neoplasm of cervix HPV Testing [facility] Start: 10-26-2017 PAP TESTING PAP TESTING [facility] Start: 10-26-2017 Screening for malign ant neoplasm of cervix Pap Testing [facility] Start: 06-17-2015 PNEUMOCOCCAL (2 - PP SV23 if available, else PCV20) PNEUMOCOCCAL (2 - PPSV23 if available, else PCV20) [facility] Start: 06-17-2015 PNEUMOCOCCAL (2 - PP SV23 or PCV20) PNEUMOCOCCAL (2 - PPSV23 or PCV20) [facility] Start: 08-11-2014 PNEUMOCOCCAL (2 - PP SV23 if available, else PCV20) PNEUMOCOCCAL (2 - PPSV23 if available, else PCV20) [facility] Start: 08-11-2014 PNEUMOCOCCAL (2 - PP SV23 or PCV20) PNEUMOCOCCAL (2 - PPSV23 or PCV20) [facility] Start: 08-11-2014 Pneumococcal vaccination [facility] Start: 07-12-2003 Screening for malign ant neoplasm of cervix Pap Smear [facility] Start: 2001 SHINGRIX VACCINE (1 of 2) TRINH GRIX VACCINE (1 of 2) [facility] Start: 2001 TWO PNEUMOVAX 5 YEAR S APART PRIOR TO AGE 65 (#1) TWO PNEUMOVAX 5 YEARS APART PRIOR TO AGE 65 (#1) [facility] Start: 1994 COVID-19 VACCINE (1) COVID-19 VACCIN E (1) [facility] Start: 07-12-1987 COVID-19 VACCINE (#1) COVID-19 VACCI NE (#1) [facility] Start: 01-11-1983 COVID-19 VACCINE (#1) COVID-19 VACCI NE (#1) [facility] End: 03-30-2023 CBC W Auto Differential panel - Blood CBC + DIFF Lab Routine 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 Occurrences starting 03/31/2022 until 03/30/[address] 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 Work Phone: Comment on above: Ordered: 05/17/2021 End: 03-30-2023 Comprehensive metabolic 2000 panel - Serum or Plasma COMP METABOLIC PANEL Lab Routine 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 Occurrences starting 03/31/2022 until 03/30/[address] [facility] Work Phone: Comment on above: Every other week for 25 Occurrences starting 03/31/2022 until 03/30/2023 End: 12-27-2022 Echocardiography ECHO Cardiology Routine Nodular sclerosing Hodgkin's lymphoma, unspecified body region (HCC) JOE (dyspnea on exertion) Chronic cough 1 Occurrences starting 12/27/2021 until 12/27/[address] [facility] Work Phone: Comment on above: 1 Occurrences starti ng 12/27/2021 until 12/27/2022 End: 09-01-2023 LUNG DIFFUSION CAPACITY (DLCO) LUNG DIFFUSION CAPACITY (DLCO) PFT Routine Chronic cough 1 Occurrences starting 08/02/2022 until 09/01/[address] [facility] Work Phone: Comment on above: 1 Occurrences starti ng 08/02/2022 until 09/01/2023 LUNG DIFFUSION CAPAC ITY (DLCO) LUNG DIFFUSION CAPACITY (DLCO) PFT Routine Chronic cough 03/28/2023 1:39 PM EST [facility] Work Phone: End: 09-01-2023 NITRIC OXIDE, EXHALED NITRIC OXIDE, EXHALED PFT Routine Bronchitis 1 Occurrences starting 08/02/2022 until 09/01/[address] 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 Work Phone: Comment on above: 1 Occurrences starti ng 06/14/2021 until 07/14/2022 End: 12-15-2022 NM PET/CT SKULL-THIGH SUBSEQUENT NM PET/CT SKULL-THIGH SUBSEQUENT Radiology Routine Nodular sclerosing Hodgkin's lymphoma, unspecified body region (HCC) 1 Occurrences starting 11/15/2021 until 12/15/[address] [facility] Work Phone: Comment on above: 1 Occurrences starti ng 11/15/2021 until 12/15/2022 End: 08-17-2023 NM PET/CT SKULL-THIGH SUBSEQUENT NM PET/CT SKULL-THIGH SUBSEQUENT Radiology Routine Nodular sclerosing Hodgkin's lymphoma, unspecified body region (HCC) 1 Occurrences starting 07/18/2022 until 08/17/[address] 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 Work Phone: Comment on above: 1 Occurrences starti ng 08/22/2022 until 09/21/2023 End: 01-31-2024 NM PET/CT SKULL-THIGH SUBSEQUENT NM PET/CT SKULL-THIGH SUBSEQUENT Radiology Routine 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) 1 Occurrences starting 01/01/2023 until 01/31/[address] [facility] Work Phone: Comment on above: 1 Occurrences starti ng 01/01/2023 until 01/31/2024 End: 09-01-2023 SPIROMETRY - BASELINE AND POST DILATOR SPIROMETRY - BASELINE AND POST DILATOR PFT Routine Chronic cough 1 Occurrences starting 08/02/2022 until 09/01/[address] [facility] Work Phone: Comment on above: 1 Occurrences starti ng 08/02/2022 until 09/01/2023 SPIROMETRY - BASELIN E AND POST DILATOR SPIROMETRY - BASELINE AND POST DILATOR PFT Routine Chronic cough 03/28/2023 1:39 PM EST 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 Work Phone: Comment on above: Ordered: 05/17/2021 End: 03-30-2023 Thyrotropin [Units/volume] in Serum or Plasma TSH BLD Lab Routine 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 Occurrences starting 03/31/2022 until 03/30/[address] [facility] Work Phone: Comment on above: Every other week for 25 Occurrences starting 03/31/2022 until 03/30/2023 End: 03-30-2023 Thyroxine (T4) free [Mass/volume] in Serum or Plasma T4 FREE/FREE THYROX Lab Routine 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 Occurrences starting 03/31/2022 until 03/30/[address] [facility] Work Phone: Comment on above: Every other week for 25 Occurrences starting 03/31/2022 until 03/30/2023 [facility] Immunizations Immunization Date Immunization Notes Care Provider Kun snyder 12-16-2014 influenza, injectabl e, quadrivalent, preservative free Sylvia Gross PHOTOTYPESETTER OPERATOR.CLINICAL TRIAL DATA MANAGER Work Phone: [facility] 12-16-2014 influenza virus vacc ine, unspecified formulation Charlee Zhao PHOTOTYPESETTER OPERATOR.CLINICAL TRIAL DATA MANAGER Work Phone: [facility] 06-16-2014 hepatitis A and hepa titis B vaccine Sylvia Gross PHOTOTYPESETTER OPERATOR.CLINICAL TRIAL DATA MANAGER Work Phone: [facility] 06-16-2014 pneumococcal conjuga te vaccine, 13 valent Sylvia Gross PHOTOTYPESETTER OPERATOR.CLINICAL TRIAL DATA MANAGER Work Phone: [facility] 03-11-2014 diphtheria and tetan us toxoids, adsorbed for pediatric use Sylvia Gross PHOTOTYPESETTER OPERATOR.CLINICAL TRIAL DATA MANAGER Work Phone: [facility] 03-11-2014 haemophilus influenz ae type b vaccine, PRP-OMP conjugate Sylvia Gross PHOTOTYPESETTER OPERATOR.CLINICAL TRIAL DATA MANAGER Work Phone: [facility] 03-11-2014 meningococcal polysaccharide vaccine (MPSV4) Sylvia Gross PHOTOTYPESETTER OPERATOR.CLINICAL TRIAL DATA MANAGER Work Phone: [facility] 03-11-2014 pneumococcal conjuga te vaccine, 13 valent Sylvia Gross PHOTOTYPESETTER OPERATOR.CLINICAL TRIAL DATA MANAGER Work Phone: [facility] 03-11-2014 poliovirus vaccine, inactivated Sylvia Gross PHOTOTYPESETTER OPERATOR.CLINICAL TRIAL DATA MANAGER Work Phone: [facility] 03-11-2014 tetanus toxoid, adsorbed Josi ka Gross PHOTOTYPESETTER OPERATOR.CLINICAL TRIAL DATA MANAGER Work Phone: [facility] 03-11-2014 tetanus toxoid, redu jessica diphtheria toxoid, and acellular pertussis vaccine, adsorbed Sylvia Gross PHOTOTYPESETTER OPERATOR.CLINICAL TRIAL DATA MANAGER Work Phone: [facility] 12-21-2013 diphtheria and tetan us toxoids, adsorbed for pediatric use Sylvia Gross PHOTOTYPESETTER OPERATOR.CLINICAL TRIAL DATA MANAGER Work Phone: [facility] 12-21-2013 haemophilus influenz ae type b vaccine, PRP-OMP conjugate Sylvia Gross PHOTOTYPESETTER OPERATOR.CLINICAL TRIAL DATA MANAGER Work Phone: [facility] 12-21-2013 hepatitis A and hepa titis B vaccine Sylvia Gross PHOTOTYPESETTER OPERATOR.CLINICAL TRIAL DATA MANAGER Work Phone: [facility] 12-21-2013 influenza, injectabl e, quadrivalent, preservative free Sylvia Gross PHOTOTYPESETTER OPERATOR.CLINICAL TRIAL DATA MANAGER Work Phone: [facility] 12-21-2013 pneumococcal conjuga te vaccine, 13 valent Sylvia Gross PHOTOTYPESETTER OPERATOR.CLINICAL TRIAL DATA MANAGER Work Phone: [facility] 12-21-2013 poliovirus vaccine, inactivated Sylvia Gross PHOTOTYPESETTER OPERATOR.CLINICAL TRIAL DATA MANAGER Work Phone: [facility] 10-14-2013 haemophilus influenz ae type b vaccine, PRP-OMP conjugate Sylvia Gross PHOTOTYPESETTER OPERATOR.CLINICAL TRIAL DATA MANAGER Work Phone: [facility] 10-14-2013 hepatitis A and hepa titis B vaccine Sylvia Gross PHOTOTYPESETTER OPERATOR.CLINICAL TRIAL DATA MANAGER Work Phone: [facility] 10-14-2013 Meningococcal Groups C and Y and Haemophilus b Tetanus Toxoid Conjugate Vaccine Sylvia Gross PHOTOTYPESETTER OPERATOR.CLINICAL TRIAL DATA MANAGER Work Phone: [facility] 10-14-2013 pneumococcal conjuga te vaccine, 13 valent Sylvia Gross PHOTOTYPESETTER OPERATOR.CLINICAL TRIAL DATA MANAGER Work Phone: [facility] 10-14-2013 poliovirus vaccine, inactivated Sylvia Gross PHOTOTYPESETTER OPERATOR.CLINICAL TRIAL DATA MANAGER Work Phone: [facility] 10-14-2013 tetanus toxoid, redu jessica diphtheria toxoid, and acellular pertussis vaccine, adsorbed Sylvia Gross PHOTOTYPESETTER OPERATOR.CLINICAL TRIAL DATA MANAGER Work Phone: [facility] 09-01-2010 hepatitis B vaccine, adult dosage Sylvia Gross PHOTOTYPESETTER OPERATOR.CLINICAL TRIAL DATA MANAGER Work Phone: [facility] 04-04-2010 hepatitis B vaccine, adult dosage Sylvia Gross PHOTOTYPESETTER OPERATOR.CLINICAL TRIAL DATA MANAGER Work Phone: [facility] 03-04-2010 hepatitis B vaccine, adult dosage Sylvia Gross PHOTOTYPESETTER OPERATOR.CLINICAL TRIAL DATA MANAGER Work Phone: [facility] 11-11-2007 hepatitis B vaccine, pediatric or pediatric/adolescent dosage Sylvia Gross PHOTOTYPESETTER OPERATOR.CLINICAL TRIAL DATA MANAGER Work Phone: [facility] 10-14-2007 hepatitis B vaccine, pediatric or pediatric/adolescent dosage Sylvia Mancilla APRN.CLINICAL TRIAL DATA MANAGER Work Phone: [facility] Payers Date Payer Category Payer Self-pay [id number] 2020 Medicaid MEDICAID [facility] MEDICAID [id number] 2020-Present [phone] [address] [place] [address] Medicaid [id number] 2020 Medicaid [id number] 2014 Medicare MEDICARE MEDICAR E A AND B [id number] 2014-Present [phone] [address] [address] [place] [address] Medicare [id number] 2014 Medicare [id number] 1982 Unknown [id number] 1982 Unknown [id number] 1982 Unknown [id number] 1982 Unknown [id number] 1982 Unknown [id number] 1959 Medicaid [id number] 1959 Medicare [id number] 1959 Medicare [id number] Unknown [id number] Social History Date Type Detail Facility Start: 01-28-2012 End: 12-31-2022 Tobacco smoking status NHIS Ex-smoker [facility] End: 01-18-2012 History of tobacco use Current smoker [facility] End: 01-18-2012 History of tobacco use Cigarette Smoker [facility] Start: 01-28-2012 End: 12-31-2022 Tobacco use and exposure Smokeless tobacco non-user [facility] Start: 03-15-2021 End: 03-28-2023 Alcohol intake Current drinker of alcohol (finding) [facility] Start: 03-15-2021 End: 07-18-2022 Alcohol intake [facility] Start: 11-18-2019 History SDOH Alcohol Frequency 2 [facility] Start: 11-18-2019 History SDOH Alcohol Std Drinks 1 [facility] Start: 03-18-2017 History SDOH Alcohol Comment 2 drinks per month [facility] Start: 1980 Sex Assigned At Female C [facility] Start: 03-20-2021 End: 12-27-2021 Exposure to SARS-CoV-2 (event) Not sure [facility] Start: 01-06-2022 End: 01-16-2022 Exposure to SARS-CoV-2 (event) Unable to assess [facility] Start: 07-18-2022 End: 08-01-2022 Tobacco use panel [facility] Adult Depression Screening Assessment 0 [facility] Start: 04-17-2021 Gender identity Identifies as female gender (finding) [facility] Start: 04-17-2021 Sexual orientation Heterosexual (fin susanne) [facility] How often to you hav e a drink containing alcohol? Monthly or less [facility] How many standard dr inks containing alcohol do you have on a typical day? 1 or 2 [facility] How often do you hav e 6 or more drinks on 1 occasion? Never [facility] History of tobacco use Passive smoker [facility] Start: 1982 Sex Assigned At Not on file N [facility] Medical Equipment Procedure Code Equipment Code Equipment Origin al Text Equipment Identifier Dates Port Inf 1 Lum Attach Cath - [id number] Start: 01-31-2012 Comment on above: Description: BARD ROXANN SÁNCHEZ Clinical Notes 03-15-2017 to 04-01-2023 Telephone Encounter - Jakob May - 04/01/2023 10:35 AM Calderon Skinner NP - 03/29/2023 1:15 PM ESTPatient Kylie Sprague APRN.PEDRO - 03/28/2023 2:30 PM EST Note Date & Type Note Facility 04-01-2023 Miscellaneous Notes Formattin g of this note might be different from the original. Patient will need lab orders for Saturday04/16/23. Thanks. Jeny Robert MA documented in this encounter [facility] 03-29-2023 History of Presen t illness Narrative Subjective Patient ID: Celso Potts is a 42 y.o. female who presents for covid +. Pt seen via telehealth using real time, two way, audio and video communication in place of an office visit. Pt gave verbal consent to this visit. Pt is currently located in her home in [place]. --- Appt for Covid + --- Onset - Was fine all day yesterday, later + fatigue, + headache, + fever 101.4 since last night Taking tylenol every 6 hrs (2) 500 mg Took covid test was + Headache so bad + cough, hurts chest to cough + sinus drainage Non productive cough + productive yellow white mucous + ear pain + everything hurts + nausea No n/d No loss of smell or taste + feels dizzy/lightheaded since last night + no appetite Current Outpatient Medications on File Prior to Visit Medication Sig Dispense Refill atenolol (Tenormin) 50 MG tablet TAKE 1 TABLET BY MOUTH TWICE A DAY FOR 90 DAYS 180 tablet 3 baclofen (Lioresal) 5 MG tablet Take 5 mg by mouth in the morning and 5 mg in the evening and 5 mg before bedtime. dexlansoprazole (Dexilant) [address] capsule Take 1 capsule (30 mg) by mouth in the morning. 90 capsule 3 fluocinonide (Lidex) 0.05 % cream Apply 1 application topically in the morning and 1 application before bedtime. Fluticasone Furoate-Vilanterol (Breo Ellipta) 100-25 MCG/ACT aerosol powder Inhale 1 puff in the morning. 60 each 3 gabapentin (Neurontin) 300 MG capsule Take 1 capsule (300 mg) by mouth in the morning and 1 capsule (300 mg) in the evening and 1 capsule (300 mg) before bedtime. 90 capsule 3 ipratropium-albuterol (Duo-Neb) 0.5-2.5 mg/3 mL nebulizer solution Take 3 mL by nebulization every 6 (six) hours ketoconazole (NIZOral) 2 % cream Apply 1 application topically 1 (one) time each day at the same time. levothyroxine (Synthroid, Levoxyl) 75 MCG tablet Take 1 tablet (75 mcg) by mouth in the morning. Take before meals. 90 tablet 3 LORazepam (Ativan) 0.5 MG tablet Take 1 tablet (0.5 mg) by mouth 4 (four) times a day as needed for anxiety 120 tablet 2 mirtazapine (Remeron) 30 MG tablet Take 1 tablet (30 mg) by mouth at bedtime. 90 tablet 3 oxyCODONE (Roxicodone) 10 MG immediate release tablet Take 10 mg by mouth every 4 (four) hours if needed. Probiotic Product (Probiotic Daily) capsule 1 (one) time each day at the same time. rivaroxaban (Xarelto) 20 MG tablet Take 20 mg by mouth in the evening. Take with meals Take with food. traZODone (Desyrel) 100 MG tablet Take 1 tablet (100 mg) by mouth as needed at bedtime for sleep 90 tablet 3 No current facility-administered medications on file prior to visit. Allergies Allergen Reactions Chlorhexidine Unknown Sulfa Antibiotics Unknown Review of Systems ROS as per HPI Visit Vitals Smoking Status Former No vitals - Telehealth visit Objective Physical Exam Constitutional: Appearance: She is ill-appearing. HENT: Head: Normocephalic and atraumatic. Nose: Congestion and rhinorrhea present. Mouth/Throat: Pharynx: No oropharyngeal exudate. Comments: Limited exam Eyes: Conjunctiva/sclera: Conjunctivae normal. Comments: No injection or drainage noted Pulmonary: Effort: Pulmonary effort is normal. No respiratory distress. Musculoskeletal: Cervical back: Normal range of motion. Comments: Moving all extremities equally Lymphadenopathy: Cervical: Cervical adenopathy: no LAD reported on self palpation. Neurological: Mental Status: She is alert. Psychiatric: Mood and Affect: Mood normal. Behavior: Behavior normal. Thought Content: Thought content normal. Judgment: Judgment normal. Assessment/Plan 1. COVID-19 Pt is at high risk for complications/progression of symptoms of Covid 19, currently has mild to moderate symptoms. Discussed use and benefit of antivirals. Pt is agreeable to start, aware to contact the office if symptoms worsen or seek emergent care. Also discussed quarantine and supportive measures to aid with symptom improvement No nsaids, prn use of tylenol cool compress for fever. As above notify if sxs fail to improve or worsen. - molnupiravir 200 MG capsule; Take 4 capsules (800 mg) by mouth in the morning and 4 capsules (800 mg) before bedtime. Do all this for 5 days. Follow instructions about contraceptive use during and after treatment (if of child-bearing potential). Dispense: 40 capsule; Refill: 0 documented in this encounter [facility] 03-28-2023 Instructions Kylie Nunes APRN.PEDRO - 03/28/2023 2:41 PM EST Continue Breo once daily Continue Duoneb PRN Start Astelin 1 spray each nostril -continue Azelastine 2 sprays each nostril at bedtime. This medication can be used twice daily if it is effective. This medication has a bitter taste, and can cause drowsiness. -Technique for nasal spray administration: First, look slightly down, breathe normally, you do not need to sniff while you spray. To use the nose spray, place the tip in your nose with the opposite hand (left hand, right side of nose, right hand, left side of nose), and aim or point toward the outside of the nose. Do not sniff or snort medication afterwards as this can cause most of the medication to be swallowed. Rather, dab your nose with a tissue if any runs out. documented in this encounter [facility] 03-28-2023 History of Presen t illness Narrative Images from the original note were not included. [facility] ESTABLISHED PATIENT OFFICE VISIT 03/28/2023 My final reccommendations will be communicated back to the requesting physician by way of shared medical record or US mail. ASSESSMENT/PLAN: 1. Restrictive lung disease - ICD9: 518.89, ICD10: J98.4 (primary diagnosis) 2. Chronic cough - ICD9: 786.2, ICD10: R05.3 Completed PFTs today which continue to show restriction. Ratio is normal. FEV1 is now 47% previously 54%. DLCO is moderately reduced but corrects to normal when accounting for hemoglobin. Overall symptoms improved with the use of Breo daily and Duoneb PRN. No exacerbations since last seen or unplanned hospitalizations. Continue current regimen of Breo every day and Duoneb PRN 3. Post-nasal drip - ICD9: 784.91, ICD10: R09.82 Persistent and has tried many interventions. Like contributing to cough and hoarseness. Recommend she trial Astelin 1 spray each nostril and saline rinses every day. Proper nasal spray technique discussed. 4. Hoarseness - ICD9: 784.42, ICD10: R49.0 5. Dysphagia, unspecified type - ICD9: 787.20, ICD10: R13.10 Has had ENT evaluation years ago and reports no abnormalities with cords. Now with difficulty swallowing and persistent hoarseness. Refer to [facility] for repeat flex scope and assistance with management. Will need to consider MBS as well pending evaluation 6. History of pulmonary embolism - ICD9: V12.55, ICD10: Z86.711 In the setting of malignancy. On life long anticoagulation with Xarelto. Follow up in [address] Carver I have discussed the above recommendations in detail with the patient. Patient verbalizes understanding and is in agreement with plan as stated above. Patient has been instructed to call our office, their PCP, or go to the nearest emergency department for new or worsening problems, including but not limited to, increasing shortness of breath, cough, fever, or chills. Electronically signed by Kylie Nunes APRN.[facility] Respiratory [place], [facility] March 28, 2023 2:55 PM Time Spent: 37 minutes INTERVAL HPI: Celso Potts is a 42 year old female who presents today for follow-up regarding restrictive lung disease. Past medical history is also significant for nodular sclerosis hodgkin lymphoma, s/p bone marrow transplant, psoriatic arthritis, PE on anticoagulation. Former smoker. Completed PFTs today. Breo has seemed to help her wheezing quite a bit. She does have a chronic cough with phlegm which is usually yellow. She does have shortness of breath with exertion. No flares since last seen. No allergies that she is aware of. Was using benadryl a lot to combat post nasal drip and hoarseness in her voice. She has tried many different nasal sprays and medications and has not seemed to find one that helps her congestion. Recently having trouble with swallowing. Has to think some times to get herself to swallow, almost as if she has forgotten how. Food is getting stuck and she is needing to take a sip of water to get it to go down. She has seen ENT in the past, per patient a Flex scope was preformed, and things were normal. She is seeing them again in a few weeks but is interested in a F ENT if we can find one near her. Denies fevers, chills, shortness of breath, wheezing, cough, phlegm, chest pain, pressure, night sweats, weight loss, nausea, vomiting, or diarrhea. A complete ROS was preformed and all areas were negative except for what is listed in the HPI The patient's current airway medication regimen is: Breo- once daily Duoneb- at least once daily. Most recent pulmonary office visit was on 09/13/[address] Carver. 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 ALLERGIES Allergen Reactions Chlorhexidine Itching Severe skin irritation. Had used for central line care Sulfa (Sulfonamide * Rash IMMUNIZATIONS: Immunization History Administered Date(s) Administered Haemophilus influenzae b (Hib PRP-OMP) vaccine, 3-dose series (PEDVAX HIB) 10/14/2013 12/21/2013 03/11/2014 Haemophilus influenzae b-meningococcal bivalent (Smb-PbkJQ-AV) vaccine (MENHIBRIX) 10/14/2013 diphtheria tetanus (DT) vaccine, pediatric 12/21/2013 03/11/2014 hepatitis A-hepatitis B (HepA-HepB) vaccine (TWINRIX) 10/14/2013 12/21/2013 06/16/2014 hepatitis B (HepB) vaccine, 3-dose series, age 0 yr - 19 yr (ENGERIX B-PEDS, RECOMBIVAX HB-PEDS) 10/14/2007 11/11/2007 hepatitis B (HepB) vaccine, 3-dose series, age 20+ yr (ENGERIX-B, RECOMBIVAX HB) 03/04/2010 04/04/2010 09/01/2010 influenza (IIV4) vaccine, age 6 mo - 64 yr, quadrivalent, PF (AFLURIA, FLUARIX, FLULAVAL, FLUZONE) 12/21/2013 12/16/2014 meningococcal (MPSV4) vaccine, quadrivalent (MENOMUNE) 03/11/2014 pneumococcal conjugate (PCV13) vaccine, 13 valent (PREVNAR 13) 10/14/2013 12/21/2013 03/11/2014 06/16/2014 poliovirus (IPV) vaccine, inactivated (IPOL) 10/14/2013 12/21/2013 03/11/2014 tetanus diphtheria pertussis (Tdap) vaccine, age 7+ yr (ADACEL, BOOSTRIX) 10/14/2013 03/11/2014 tetanus toxoid (TT) vaccine 03/11/2014 PHYSICAL EXAMINATION: VITAL SIGNS: BP 114/81 Pulse 99 Wt 108.9 kg (240 lb) LMP 11/18/2012 SpO2 97% BMI 33.60 kg/m O2: room air GENERAL: alert, well appearing HEENT: Sclera anicteric. no visible nasal discharge. Lips, tongue, and buccal mucosa without cyanosis or erythema. CV: regular rate and rhythm. no LE edema. PULM: Lungs are clear to auscultation bilaterally without wheezes, rhonchi or rales. Respirations are non-labored without accessory muscle use. MSK: Extremities warm and well perfused. without cyanosis. NEURO: A&O x 3. Answers questions appropriately. PSYCH: Mood and affect appropriate for situation. DATA REVIEW: I have personally reviewed the following: Most recent labs reviewed. SERVICE DATE: 03/28/2023 SERVICE TIME: 1:59 PM Oral Exhaled Nitric Oxide measurement: 14.0 (ppb) PET 01/28/2023 IMPRESSION: 1. NECK: No FDG avid neoplastic process. No mass, adenopathy, or fluid collection. 2. CHEST: No FDG avid neoplastic process. No mass, adenopathy, or fluid collection. Interval decrease in size of the small left pleural effusion. 3. ABDOMEN/PELVIS: No FDG avid neoplastic process. No mass, adenopathy, or fluid collection. 4. EXTREMITIES/SKELETON: No FDG avid osseous process. No destructive/traumatic bony abnormality. CT Chest 07/17/2022 IMPRESSION: 1. More conspicuous mosaic attenuation in the bilateral lung rodriguez. 2. Mild reticular nodular opacities in the right middle lobe most likely infectious/inflammatory in etiology, stable. Consider follow-up to complete resolution. 3. Trace left pleural effusion, stable. 4. Subcentimeter nodular opacities in the left lung measuring up to 5 mm, stable 5. Postradiation changes in the bilateral lung rodriguez. CT Chest 05/31/2022 IMPRESSION: 1. Mild reticular nodular opacities in the right middle lobe most likely infectious/inflammatory in etiology, new since 02/26/22. Consider follow-up to complete resolution. 2. New trace left pleural effusion. 3. Subcentimeter nodular opacities in the left lung measuring 5 mm, stable since 02/26/22. 4. Postradiation changes in the bilateral lung rodriguez. 5. Mosaic attenuation in the bilateral lung rodriguez suggestive of air trapping, less conspicuous. Kylie Nunes APRN.CLINICAL TRIAL DATA MANAGER March 28, 2023 This note was partially generated using Dragon voice recognition system, and there may be some incorrect words, spellings, and punctuation that were not noted in checking the note before saving. documented in this encounter [facility] 03-28-2023 Procedure note Associated Ord er(s): NITRIC OXIDE, EXHALED RESPIRATORY THERAPY ORAL EXHALED NITRIC OXIDE SERVICE DATE: 03/28/2023 SERVICE TIME: 1:59 PM Oral Exhaled Nitric Oxide measurement: 14.0 (ppb) Normal: Adult 5-20 ppb, pediatric (<12 years) 5-15 ppb High Normal / Increased: Adult 20-35 ppb, pediatric (<12 years) 15-25 ppb Moderately raised exhaled Nitric Oxide may indicate underlying inflammation, but note that: Cold and influenza can raise exhaled Nitric Oxide and some patients have higher baseline exhaled Nitric Oxide levels than others. High: Adult >35 ppb, pediatric (<12 years) >25 ppb Indicative of ongoing eosinophilic inflammation. Symptomatic patient likely to respond to steroids. Possible causes (if already on steroids): Poor compliance, recent allergen exposure, steroid dose inadequate, and steroid resistance. Note that not all patients with high exhaled nitric oxide levels display symptoms. Oral Exhaled Nitric Oxide measurement (Previous Encounters) Test Date Oral Exhaled Nitric Oxide (ppb) 03/28/2023 14.0 NAME: Perla Powell RRT PATIENT NAME: Celso Potts DATE: March 28, 2023 TIME: 1:59 PM documented in this encounter [facility] 03-28-2023 History of Presen t illness Narrative PULM FUNCTION SMARTBLOCK: Provider: Ella Chan APRN.CNP Spirometry w/BD: 1 DLCO: 1 Exhaled Nitric Oxide: 1 documented in this encounter [facility] 01-29-2023 Evaluation note Encounter Date Diagnosis Assessment Notes Jan, Dysuria (ICD-10 - R30.0) Jan, Acute cystitis without hematuria (ICD-10 - N30.00) Drink plenty fluids, get plenty of rest. Take the Macrobid and Pyridium as prescribed until gone. Take Tylenol or Motrin as needed for aches pains or fevers. Continue home medications as prescribed. Follow-up with your family physician if no improvement in 2 to 3 days [employer] Other 12-11-2023 Miscellaneous Notes* Telephone Encounter - Radha Song RN - 01/28/2023 1:47 PM EST Pt here for PET Benny labs for office f/u next week Please sign pended cortisol level if needed for f/u. Pt requested level Thank You! Radha Song RN [facility] Miscellaneous Notes* Telephone Encounter - Kristina Pete RN - 01/07/2023 8:12 AM EST Next visit Juan Francisco Emely 02/28/23 Patient phones requesting refills as follows: Requested Prescriptions Pending Prescriptions Disp Refills baclofen 5 mg tablet 90 tablet 1 Sig: Take 1 tablet by mouth three times a day. cyclobenzaprine (FLEXERIL) 10 mg tablet 90 tablet 1 Sig: Take 1 tablet by mouth three times a day as needed for muscle spasm. oxyCODONE IR (ROXICODONE) 10 mg tab 120 tablet 0 Sig: Take 1 tablet by mouth every 4 hours as needed (moderate-severe cancer pain) for up to 30 days. Please review and advise. Kristina Pete RN [facility] Miscellaneous Notes* Telephone Encounter - Anh Bowles RN - 01/03/2023 9:13 AM EST Results reviewed with patient. Please review and sign Rx. Anh Bowles RN * Telephone Encounter - Anh Bowles RN - 01/02/2023 3:42 PM EST LM for pt requesting CB to review results. We will also need to know what pharmacy she would like this sent to. Anh Bowles RN * Telephone Encounter - Anh Bowles RN - 01/02/2023 3:34 PM EST ----- Message from Jose Cason RN sent at 01/02/2023 3:28 PM EST ----- ----- Message ----- From: Alexsander Ledezma MD Sent: 01/02/2023 2:55 PM EST To: Jose Cason RN Please inform the patient that her cortisol level is markedly low, which may be contributing to hermuscle cramps and fatigue. I would suggest hydrocortisone 20 mg twice daily. We will then adjust dosage when she is feeling better and labs are back to baseline. [facility] History of Present illness Narrative* Alexsander Ledezma MD - 01/01/2023 7:39 AM EST PATIENT NAME: Celso Potts DATE: 01/01/2023 PRIMARY CARE PHYSICIAN: Jose Vail MD OTHER PHYSICIANS: Dr. Cyn Ramires; Dr. Gurpreet Unger; Juan Francisco Hutchinson, PEDRO ([facility] Pall Med), Dr. Estrada Del Valle ([facility] Rad Onc), Dr. Summer Carver ([facility] Pulmonary), Dr Jaxson Gamez ([facility] Dermatology) CC: This is a 42 year old female with recurrent Hodgkin's disease, referred for further management. 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 She received first-line treatment with ABVD x6 cycles. Apparently she progressed 1 month after completing her first regimen. She received second line treatment with ICE x3. Once again she progressed shortly after completing this regimen. She received third line therapy with brentuximab vedotin followed by an autologous stem cell transplant in February 2013. After her transplant the patient received radiation therapy to her mediastinum and hilar lymph nodes. She subsequently relapsed and received fifth line therapy with nivolumab. After progressing she received sixth line therapy with ibrutinib April 2019 through October 2019. Subsequently she was started on seventh line therapy with pembrolizumab in October 2019. In March 2022 she developed mid abdominal pain,and was found to have progressive disease in the right mesenteric area. She received palliative radiation therapy to her abdomen 04/02/2022 through 04/06/2022. She last received pembrolizumab on 05/01/2022. She has remained off therapy since April 2022 and has remained relatively stable. She currently is referred to our office to obtain follow-up and potential future treatment closer to her home. The patient has multiple complaints today. She has chronic pain in her left mid back and left flankarea. She complains of frequent muscle cramps particular involving her hands and legs. She has ongoing fatigue. She has chronic anxiety, which is worsened being off therapy for the past 6 months. She denies any recent fevers, night sweats, or weight loss. No signs of infection. The patient does not smoke or drink. 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 She is currently engaged. She has no children. MEDICATIONS: LORazepam (ATIVAN) 0.5 mg^take 1 tablet by mouth four times a day if needed for anxiety^Disp: ^Rfl: molnupiravir 200 mg capsule^PLEASE SEE ATTACHED FOR DETAILED DIRECTIONS^Disp: ^Rfl: INCRUSE ELLIPTA 62.5 mcg/actuation inhaler^^Disp: ^Rfl: umeclidinium (INCRUSE ELLIPTA) 62.5 mcg/actuation inhaler^Inhale 1 Puff as instructed once daily.^Disp: ^Rfl: oxyCODONE IR (ROXICODONE) 10 mg tab^Take 1 tablet by mouth every 4 hours as needed (moderate-severecancer pain) for up to 30 days.^Disp: 120 tablet^Rfl: 0 baclofen 5 mg tablet^Take 1 tablet by mouth three times a day.^Disp: 90 tablet^Rfl: 1 cyclobenzaprine (FLEXERIL) 10 mg tablet^Take 1 tablet by mouth three times a day as needed for muscle spasm.^Disp: 90 tablet^Rfl: 1 XARELTO 10 mg tablet^take 1 tablet by mouth once daily^Disp: 90 tablet^Rfl: 3 prochlorperazine (COMPAZINE) 10 mg tablet^take 1 tablet by mouth every 6 hours if needed^Disp: 30 tablet^Rfl: 3 fluticasone-vilanterol (BREO ELLIPTA) 100-25 mcg/dose inhaler^Inhale 1 Inhalation as instructed once daily.^Disp: 1 Each^Rfl: 3 Biotin 2,500 mcg cap^^Disp: ^Rfl: mirtazapine (REMERON) 30 mg tablet^Take 30 mg by mouth daily at bedtime.^Disp: ^Rfl: ipratropium-albuterol (DUONEB) 0.5 mg-3 mg(2.5 mg base)/3 mL nebu^Inhale 3 mL as instructed every 6hours as needed for wheezing/shortness of breath.^Disp: 540 mL^Rfl: 1 acyclovir (ZOVIRAX) 400 mg tablet^take 1 tablet by mouth twice a day^Disp: 180 tablet^Rfl: 3 albuterol HFA (VENTOLIN HFA) 90 mcg/actuation inhaler^Inhale 2 Puffs as instructed every 4 hours asneeded for wheezing/shortness of breath.^Disp: 1 Each^Rfl: 5 fluocinonide (LIDEX) 0.05 % cream^apply to affected area ON THE RIGHT HAND and legs TWICE A DAY^Disp: 120 g^Rfl: 2 naloxone 4 mg/actuation nasal spray (NARCAN)^Use 1 spray in one nostril as needed for overdose. Mayrepeat every 2 to 3 min in alternating nostrils until medical assistance is available^Disp: 1 Box^Rfl: 0 levothyroxine (SYNTHROID) 75 mcg tablet^Take 1 tablet by mouth once daily. ^Disp: ^Rfl: triamcinolone acetonide (KENALOG) 0.1 % ointment^APPLY TO THE AFFECTED AREA TWICE A DAY FOR 5 DAYS^Disp: ^Rfl: traZODone (DESYREL) 50 mg tablet^Take 100 mg by mouth daily at bedtime. ^Disp: ^Rfl: Dexlansoprazole (DEXILANT) 30 mg CpDM^Take 1 capsule by mouth once daily.^Disp: 60 capsule^Rfl: 6 Lactobac no.41/Bifidobact no.7 (PROBIOTIC-10 ORAL)^Take by mouth.^Disp: ^Rfl: atenolol (TENORMIN) 50 mg tablet^take 1 tablet by mouth twice a day^Disp: 60 tablet^Rfl: 1 CHOLECALCIFEROL, VITAMIN D3, (VITAMIN D3 ORAL)^Take 1,000 Units by mouth once daily.^Disp: ^Rfl: acetaminophen (TYLENOL) 325 mg tablet^Take 1-2 tablets by mouth every 4 hours as needed (not to exceed 2000 mg in a 24 hour period).^Disp: ^Rfl: 0 tretinoin (RETIN-A) 0.05 % cream^Apply a pea size amount to affected area every other night for 2 weeks then increase to daily as tolerated^Disp: 45 g^Rfl: 3 Vitamin B Comp and C No.3 (B COMPLEX PLUS VITAMIN C) 19-89-48-5-300 mg cap^Take 1 tablet by mouth once daily.^Disp: 30 capsule^Rfl: 3 ALLERGIES: Chlorhexidine and Sulfa (Sulfonamide Antibiotics) PAST MEDICAL HISTORY: PAST MEDICAL HISTORY Diagnosis Date ASCUS favor dysplasia 09/2014 for colpo Dyspareunia Fibroid 04/02/2017 Hodgkin lymphoma (HCC) 01/16/2012 stage IIIB, Nodular sclerosis classical Hodgkin lymphoma Menorrhagia 04/02/2017 PE (pulmonary embolism) Found incidentally on staging CT May 27, 2012 Pneumonitis 2013 Attributed to radiation and brentuximab vedotin Postmenopausal atrophic vaginitis Postmenopausal HRT (hormone replacement therapy) 08/2014 offered Premature menopause 01/2014 FSH 70 normal dxa Tachycardia on atenolol Vaginal high risk human papillomavirus (HPV) DNA test positive 09/28/2014 PAST SURGICAL HISTORY: PAST SURGICAL HISTORY Procedure Laterality Date ENDOCERVICAL CURETTAGE 04/02/2017 HYSTEROSCOPY BX W/WO D&C 04/02/2017 with D&C PAST SURGICAL HISTORY OF 01/16/12 left [address]illary [address] biopsy/ had 2012 stem cell tx has port removal VAGINOSCOPY 10/12/14 negative path VATS MEDIASTINAL LYMPHADENECTOMY 10/2012 left VATS REVIEW OF SYSTEMS: As above PHYSICAL EXAM: Vitals: BP 133/89 Pulse 104 Temp (Src) 97 (Temporal) Resp 16 Ht 5' 10.866 [verified by 2 caregivers[ (1.80m) Wt 226 lb 3.2 oz (102.6kg) SpO2 97% LMP 11/18/2012 BMI 31.67 kg/(m^2). General appearance: well appearing, alert, in no acute distress, well-hydrated, well nourished Skin: skin color, texture, turgor normal, no suspicious rashes or lesions Head: normal Eyes: Anicteric sclera. Pupils are equally round and reactive to light. Extraocular movements are intact. Ears: negative findings: external ears normal to inspection and palpation Oropharynx: negative Neck: Supple, no adenopathy; thyroid symmetric, normal size Lymph Nodes: No Submandibular, cervical, supraclavicular, axillary, or inguinal lymphadenopathy present Breast: NL Symmetry, No Masses/Tenderness/Discharge, No Skin Changes Back: no tenderness to palpation Lungs: clear to auscultation, no wheezing or rhonchi Heart: Negative. RRR without murmur, gallop, or rubs. No ectopy. Abdomen: Normal abdominal exam, Abdomen soft, non-tender. Bowel sounds normal. No masses, organomegaly Rectal: Not done Extremities: Extremities normal. No deformities, edema, or skin discoloration. Good capillary refill. Musculoskeletal: No joint swelling, deformity, or tenderness. Peripheral pulses: Normal LABORATORY DATA: Hemoglobin (g/dL) Date Value 01/01/2023 14.6 04/05/2021 15.3 Hematocrit (%) Date Value 01/01/2023 44.6 04/05/2021 45.8 WBC (k/uL) Date Value 01/01/2023 8.01 04/05/2021 8.31 Platelet Count (k/uL) Date Value 01/01/2023 320 04/05/2021 277 RADIOLOGY/OTHER STUDIES: 08/14/2022 PET SCAN IMPRESSION: 1. HEAD and NECK: No evidence of focal uptake to suggest FDG avid neoplastic process.. 2. CHEST: No evidence of focal uptake to suggest FDG avid neoplastic process.. 3. ABDOMEN/PELVIS: No evidence of focal uptake to suggest FDG avid neoplastic process.. 4. EXTREMITIES/SKELETON: No evidence of focal uptake to suggest FDG avid neoplastic process.. 07/17/2022 CT chest IMPRESSION: 1. More conspicuous mosaic attenuation in the bilateral lung rodriguez. 2. Mild reticular nodular opacities in the right middle lobe most likely infectious/inflammatory in etiology, stable. Consider follow-up to complete resolution. 3. Trace left pleural effusion, stable. 4. Subcentimeter nodular opacities in the left lung measuring up to 5 mm, stable 5. Postradiation changes in the bilateral lung rodriguez. 05/31/2022 CT Chest IMPRESSION: 1. Mild reticular nodular opacities in the right middle lobe most likely infectious/inflammatory in etiology, new since 02/26/22. Consider follow-up to complete resolution. 2. New trace left pleural effusion. 3. Subcentimeter nodular opacities in the left lung measuring 5 mm, stable since 02/26/22. 4. Postradiation changes in the bilateral lung rodriguez. 5. Mosaic attenuation in the bilateral lung rodriguez suggestive of air trapping, less conspicuous. ASSESSMENT/PLAN: 1. 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) - ICD9: 201.58, ICD10: C81.18 (primary diagnosis) The patient was initially diagnosed with advanced nodular sclerosis Hodgkin's disease in January 2012. She received first-line treatment with ABVD x6 cycles. Apparently she progressed 1 month after completing her first regimen. She received second line treatment with ICE x3. Once again she progressed shortly after completing this regimen. She received third line therapy with brentuximab vedotin followed by an autologous stem cell transplant in February 2013. After her transplant the patient received radiation therapy to her mediastinum and hilar lymph nodes. She subsequently relapsed and received fifth line therapy with nivolumab. After progressing she received sixth line therapy with ibrutinib April 2019 through October 2019. Subsequently she was started on seventh line therapy with pembrolizumab in October 2019. In March 2022 she developed mid abdominal pain, and was found to have progressive disease in the right mesenteric area. She received palliative radiation therapy to her abdomen 04/02/2022 through 04/06/2022. She last received pembrolizumab on 05/01/2022. Most recent staging PET scan 08/14/2022 revealed no evidence of active disease. Currently the patient is clinically stable but has multiple symptoms. Difficult to know whether these are related to progressive disease versus separate underlying conditions. We have elected to check baseline labs today and will arrange for a restaging PET scan this month. Return in 4 weeks for follow-up. If/when she is found to have progressive disease treatment options will be discussed. 2. Autologous bone marrow transplantation status (HCC) - ICD9: V42.81, ICD10: Z94.81 Status post high-dose busulfan, etoposide, and cyclophosphamide with autologous hematopoietic progenitor cell transplantation in February 2013. 3. Restrictive lung disease - ICD9: 518.89, ICD10: J98.4 As a result of the patient's extensive chemotherapy, stem cell transplant, and radiation therapy she has chronic restrictive lung disease. Continue management per [facility] pulmonary. 4. History of pulmonary embolism and DVT (deep vein thrombosis) - ICD9: V12.51, ICD10: Z86.718 The patient had an incidental finding of a pulmonary embolism in May 2012. Status post anticoagulation with Lovenox followed by Xarelto. 5. 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 Stable on currentmedications (Neurontin). Continue management per PCP. 6. Psoriasis - ICD9: 696.1, ICD10: L40.9 Diffuse psoriatic skin changes, possibly secondary to immunotherapy versus psoriasis. Continue management per [facility] dermatology. 7. Cancer associated pain - ICD9: 338.3, ICD10: G89.3 Stable on current medications, continue management per [facility] palliative medicine. 8. Acquired hypothyroidism Stable on current medications. Continue management per PCP. 9. Tachycardia Stable on current medications. Continue management per PCP. Alexsander Ledezma MD documented in this encounterOhio[facility]23 NoteHNO ID: [id number] Author: Juan Francisco Hutchinson APRN.CLINICAL TRIAL DATA MANAGER Service: ? Author Type: Nurse Practitioner Type: Progress Notes Filed: 12/20/2022 1:10 PM Note Text: PALLIATIVE MEDICINE PROGRESS NOTE SERVICE DATE: 12/20/2022 Primary Site of Disease/Medical Illness: Hodgkin Lymphoma CHIEF COMPLAINT: follow up PERTINENT MEDICAL HISTORY: Celso Potts is a 42 yo female with a history of psoriatic arthritis and Hodgkin's Lymphoma diagnosed 01/16/2012 s/p autologous SCT (2013) and several other treatments due to recurrences in that time. She has undergone palliative radiation to spleen, liver, and lymph nodes (April 2020) per Dr. Del Valle, then to right mesenteric LN (March 2022). Course has been c/b pulmonary embolus (on AC), PJP pneumonia, herpes zoster. She received treatment with Keytruda per Dr. Abimael Ramires (completed 05/01/22 - after 38 cycles). Imaging in July 2022 demonstrated a complete remission and is now under surveillance. Palliative care is following for symptom control needs. Subjective Last pall care visit 10/18/22 Did not tolerate lyrica trial Had Covid diagnosed a couple weeks ago. Has recovered completely - took antiviral from PCP Reports she has been doing ok. 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 The pain was very severe and feels as though something is tearing inside. This has improved some with time. Continues to have pain only when she is bending forward. Denies pain with deep breathing, no cough, no pain when laying down. No shortness of breath, dizziness Continues to have chest pain that has been chronic since her radiation treatments. This feels like a dried rubber band trying to stretch inside her chest which gets worse with more movement. Continues to experience muscle cramps/spasms on a regular basis and notes they are worse when she is more active. Involving her fingers most recently, have previously involved legs arms and back. Continues to take tizanidine and baclofen - has been taking on a more regular basis recently which she feels helps more. States she has never been given an explanation of these cramps. Saw rheumatology a while back and established the diagnosis of psoriatic arthritis. Does not think it was through the clinic. And states she did not follow up as it was in [place] and not close to her home. Keeps well hydrated because dehydration has always made these symptoms worse. She is taking gabapentin 600 mg TID. Also taking oxycodone 10 mg 3-4 times per day Denies confusion, oversedation, myoclonus, constipation Fatigued but does not sleep during the day Going out with friends and keeping busy as much as she can Modified ESAS ([place] Symptom Assessment Scale) Information Provided By: Patient Pain: Mild Nausea: None Loss of Appetite: None Constipation: None Shortness of Breath: None Drowsiness: Not asked Tiredness: Moderate Depression: None Anxiety: Moderate How you feel overall: Good Objective ECOG PERFORMANCE STATUS: 0- Fully active, able to carry on all pre-disease performance w/o restriction. PHYSICAL EXAMINATION: Vital signs: BP 119/82 Pulse 103 Temp 36.6 ?C (97.9 ?F) (Oral) Wt 101.2 kg (223 lb 1.6 oz) LMP 11/18/2012 SpO2 96% BMI 31.12 kg/m? Last 1 Encounter Temp Readings: Date: Temp: Temp Src: 10/18/2022 36.8 ?C (98.2 ?F) Last 1 Encounter Resp Readings: Date: Resp: 09/13/2022 16 Last 1 Encounter Pulse Readings: Date: Pulse: 10/18/2022 96 Last 1 Encounter BP Readings: Date: BP: 10/18/2022 116/81 General Appearance: No apparent distress and well nourished Skin: No jaundice and No rash Lungs: unlabored effort, no conversational dyspnea CV: no lower extremity edema Musculoskeletal: No edema and No gross deformity Neuro: Alert and oriented to time place and person and no myoclonus Psych: Well groomed, Affect congruent with mood, and Good eye contact DATA: Diagnostic tests reviewed for today's visit: No new labs CrCl cannot be calculated (Patient's most recent lab result is older than the maximum 180 days allowed.). Opioid Management: Yes Indication for Opioid Prescribing: Chronic Non cancer pain ORT-OUD Score: 1 A score of 3 or higher may indicate a higher risk for future development of aberrant drug related behavior or opioid use disorder. Informed consent for chronic opiate therapy obtained and written pain agreement: On file Naloxone offered?: Previously prescribed Course of treatment, patient's response and adherence to the prescribed treatment plan reviewed, including non-pharmacological and non-opioid treatment modalities? Yes Have any complications or exacerbations of the underlying condition causing the pain been reviewed? Yes How much does pain impede patient?s ability to engage in work or other purposeful activities, interfere with your activities of daily living, (more content not included)...[facility]10-30-2023 Miscellaneous Notes * Telephone Encounter - Mitzi Brown - 12/17/2022 2:33 PM EDT Called patient and rescheduled with PFT's to January 03 and FU with SARAH documented in this encounterOhio[facility]09-18-2023 Miscellaneous Notes* Telephone Encounter - Juan Francisco Hutchinson APRN.PEDRO - 11/05/2022 4:38 PM EDT PDMP website checked and validated. All prescriptions have been APPROPRIATELY filled. No suspiciousactivity was identified. 11/05/2022 by Juan Francisco Hutchinson APRN.CLINICAL TRIAL DATA MANAGER Rx sent - earliest fill 11/09/22 Juan Francisco Hutchinson APRN.CLINICAL TRIAL DATA MANAGER * Telephone Encounter - Kylie Mosher RN - 11/05/2022 4:35 PM EDT Patient requesting refills as follows: Next PM f/u appt 11/15/2022 Last ordered 10/09/2022 Requested Prescriptions Pending Prescriptions Disp Refills oxyCODONE IR (ROXICODONE) 10 mg tab 120 tablet 0 Sig: Take 1 tablet by mouth every 4 hours as needed (moderate-severe cancer pain) for up to 30 days. Please review and advise. Kylie Mosher RN documented in this encounterOhiohealth [facility]08-31-2023 Miscellaneous Notes* Telephone Encounter - Kylie Mosher RN - 10/18/2022 1:34 PM EDT Prior Authorization Documentation Prior authorization requested via Covermymeds for the following medication: Medication: Lyrica 100 mg capsules Approved and authorizes your coverage from 02/18/2022 - 02/17/2023, Insurance Company Name: [employer] Phone number: [phone] Patient ID number: [id number] Osorio [id number] Pharmacy Name: [facility] Telephone number: [phone] Kylie Mosher RN October 18, 2022 1:38 PM documented in this encounterOhiohealth [facility]08-31-2023 NoteHNO ID: [id number] Author: Juan Francisco Hutchinson APRN.PEDRO Service: ? Author Type: Nurse Practitioner Type: Progress Notes Filed: 10/18/2022 3:27 PM Note Text: PALLIATIVE MEDICINE PROGRESS NOTE SERVICE DATE: 10/18/2022 Primary Site of Disease/Medical Illness: Hodgkin Lymphoma Site of Metastasis: Liver, Lymph nodes, Spleen CHIEF COMPLAINT: follow up on pain and muscle cramps. PERTINENT MEDICAL HISTORY: Celso Potts is a 42 yo female with Hodgkin's Lymphoma diagnosed 01/16/2012 s/p autologous SCT (2013) and several other treatments due to recurrences in that time. She has undergone palliative radiation to spleen, liver, and lymph nodes (April 2020) per Dr. Del Valle, then to right mesenteric LN (March 2022). She is currently treated with Keytruda per Dr. Abimael Ramires. Course has been c/b pulmonary embolus (on AC), PJP pneumonia, herpes zoster. Palliative care is following for symptom control needs. Subjective Last pall care visit 07/19/22 Feeling fairly well. Pulmonary changes have helped a lot with wheezing, SOB, cough, phlegm. Scan results showed CR. Patient remains anxious about recurrence as she doesn't feel she has ever had 2 concurrent stable scans in a row. She continues to always feels achy and very fatigued. Still having a lot of muscle cramps when she is very active such as raking the yard. - get cramps in her arms and hands that she has to pry open She remains Fully functional. Has hard time on the steps due to shortness of breath and joints are painful. Feels very fatigued after activity and has to take a lot of breaks. No new or worsening pains. States she hydrates well Had acupuncutre a couple years ago but not effective for symptoms. Continues to take gabapentin 600 mg tid, baclofen and flexeril, and oxycodone 4 tabs in a day. Denies confusion, oversedation, myoclonus, constipation. Modified ESAS (Davenport Symptom Assessment Scale) Information Provided By: Patient Pain: Moderate Nausea: None Loss of Appetite: None Constipation: None Shortness of Breath: Mild Drowsiness: None Tiredness: Moderate Depression: None Anxiety: Moderate How you feel overall: Good Objective ECOG PERFORMANCE STATUS: 1- Restricted in physically strenuous activity. Carries out light duty. PHYSICAL EXAMINATION: Vital signs: BP 116/81 Pulse 96 Temp 36.8 ?C (98.2 ?F) Wt 102 kg (224 lb 14.4 oz) LMP 11/18/2012 SpO2 96% BMI 31.37 kg/m? Last 1 Encounter Temp Readings: Date: Temp: Temp Src: 10/18/2022 36.8 ?C (98.2 ?F) Last 1 Encounter Resp Readings: Date: Resp: 09/13/2022 16 Last 1 Encounter Pulse Readings: Date: Pulse: 10/18/2022 96 Last 1 Encounter BP Readings: Date: BP: 10/18/2022 116/81 General Appearance: No apparent distress and well nourished Skin: No jaundice and No rash Lungs: unlabored effort, no conversational dyspnea Musculoskeletal: No edema and No gross deformity Neuro: Alert and oriented to time place and person and gait normal Psych: Well groomed, Affect congruent with mood, and Good eye contact DATA: Diagnostic tests reviewed for today's visit: Most recent labs and imaging results. Estimated Creatinine Clearance: 140.5 mL/min (based on SCr of 0.7 mg/dL). Opioid Management: Yes Indication for Opioid Prescribing: Chronic, Non-cancer pain ORT-OUD Score: 2 A score of 3 or higher may indicate a higher risk for future development of aberrant drug related behavior or opioid use disorder. Informed consent for chronic opiate therapy obtained and written pain agreement: On file Naloxone offered?: Previously prescribed Course of treatment, patient's response and adherence to the prescribed treatment plan reviewed, including non-pharmacological and non-opioid treatment modalities? Yes Have any complications or exacerbations of the underlying condition causing the pain been reviewed? Yes How much does pain impede patient?s ability to engage in work or other purposeful activities, interfere with your activities of daily living, physical activity, or quality of your family life and social activities? Significantly Aberrancies in pain panel? No Any aberrant drug related behaviors since last visit? No Rationale for continuing opioid treatment: Improved comfort and function based on an ongoing functional assessment Benefits of Opioid Therapy outweigh risks: Yes Prescribed Morphine Equivalent Daily Dose (MEDD): Yes > 50 MEDD Yes, I am certified in Hospice and Palliative Care, Hematology, Medical Oncology or Pain Medicine OARRS Checked: PDMP website checked and validated. All prescriptions have been APPROPRIATELY filled. No suspicious activity was identified. 10/18/2022 by Juan Francisco Hutchinson APRN.CLINICAL TRIAL DATA MANAGER Urine Screen Lab Results Component Value Date UAMPH Negative 02/24/2021 UBARB2 Negative 02/24/2021 UBENZ Negative 02/24/2021 UQBUPRE <20 01/25/2022 UQNORBUP <20 01/25/2022 UCOC2 Negative 02/24/2021 UQCANN <1 (more content not included)...[facility]08-31-2023 NoteHNO ID: [id number] Author: Zoila Pedersen RN Service: ? Author Type: Registered Nurse Type: Progress Notes Filed: 10/25/2022 2:14 PM Note Text: INTRALESIONAL INJECTIONS (ILK) NURSING ASSESSMENT: Is the patient having any pain? Yes PAIN EVALUATION 10/18/2022 1048 Pain Level: 1 Pain Location: Thigh-Left Description: Sore Duration Units: Weeks Frequency: Continuous Intervention/Comfort measure: Other: See comment Comments: washes with Dial antibacterial CLINICIAN: Patient ID verified with patient: Yes PATIENT ID VERIFIED BY: Full Name, Washes with Dial soap , allergic to Hibiclens - states clindamycin does not work Joined Facebook group , heard that Vicks works if occluded under a band aid , states she has tried and it works 80% of time to bring lesion to a head. Would like to discuss lancing vs surgical removal of lesion as it has been injected previously. ILK helps to calm site for about 6 weeks at a time Procedure verified with patient: Yes Audible time-out documented: Yes INJECTION PROCEDURE: Hidradenitis suppurativa: Description: Firm and Erythematous Appearance: Not infected Location: left inner thigh Discussed R/B/O of medication including side effects. Patient agrees to proceed.Site cleansed with alcohol. Site injected with ILK as ordered. Total Kenalog 10mg/ml injected : 0.3 ml. Patient tolerated procedure well.. BandAid applied to injection site. Patient encouraged to use warm compresses daily. Left Inner Thigh ; Total injections: 1 FOLLOW UP: 6 weeks with provider Zoila Pedersen RN October 18, 2022 11:09 [facility]08-31-2023 Instructions* Patient Instructions* Juan Francisco Hutchinson APRN.CNP - 10/18/2022 11:50 AM EDT Juan Francisco Hutchinson CNP Department of Palliative and Supportive Care Palliative Care - Specialty services in symptom management and support For questions or prescription refills, call: [phone] Saturday - Saturday 9AM-5PM ERVIN Corrales, RN - Novelty Maker Please call 3-5 days in advance for medication refills Evenings, Weekends, Holidays: [phone] (ask for palliative medicine on-call provider) For appointments, cancellations or reschedule, call: [phone] documented in this encounterOhio[facility]08-31-2023 History of Present illness Narrative* Juan Francisco Hutchinson APRN.CNP - 10/18/2022 11:26 AM EDT PALLIATIVE MEDICINE PROGRESS NOTE SERVICE DATE: 10/18/2022 Primary Site of Disease/Medical Illness: Hodgkin Lymphoma Site of Metastasis: Liver, Lymph nodes, Spleen CHIEF COMPLAINT: follow up on pain and muscle cramps. PERTINENT MEDICAL HISTORY: Celso Potts is a 42 yo female with Hodgkin's Lymphoma diagnosed 01/16/2012 s/p autologous SCT (2013) and several other treatments due to recurrences in that time. She hasundergone palliative radiation to spleen, liver, and lymph nodes (April 2020) per Dr. Del Valle, thento right mesenteric LN (March 2022). She is currently treated with Keytruda per Dr. Abimael Ramires. Course has been c/b pulmonary embolus (on AC), PJP pneumonia, herpes zoster. Palliative care is following for symptom control needs. Subjective Last pall care visit 07/19/22 Feeling fairly well. Pulmonary changes have helped a lot with wheezing, SOB, cough, phlegm. Scan results showed CR. Patient remains anxious about recurrence as she doesn't feel she has ever had 2 concurrent stable scans in a row. She continues to always feels achy and very fatigued. Still having a lot of muscle cramps when she is very active such as raking the yard. - get cramps in her arms and hands that she has to pry open She remains Fully functional. Has hard time on the steps due to shortness of breath and joints are painful. Feels very fatigued after activity and has to take a lot of breaks. No new or worsening pains. States she hydrates well Had acupuncutre a couple years ago but not effective for symptoms. Continues to take gabapentin 600 mg tid, baclofen and flexeril, and oxycodone 4 tabs in a day. Denies confusion, oversedation, myoclonus, constipation. Modified ESAS (Davenport Symptom Assessment Scale) Information Provided By: Patient Pain: Moderate Nausea: None Loss of Appetite: None Constipation: None Shortness of Breath: Mild Drowsiness: None Tiredness: Moderate Depression: None Anxiety: Moderate How you feel overall: Good Objective ECOG PERFORMANCE STATUS: 1- Restricted in physically strenuous activity. Carries out light duty. PHYSICAL EXAMINATION: Vital signs: BP 116/81 Pulse 96 Temp 36.8 C (98.2 F) Wt 102 kg (224 lb 14.4 oz) LMP 11/18/2012 SpO2 96% BMI 31.37 kg/m Last 1 Encounter Temp Readings: Date: Temp: Temp Src: 10/18/2022 36.8 C (98.2 F) Last 1 Encounter Resp Readings: Date: Resp: 09/13/2022 16 Last 1 Encounter Pulse Readings: Date: Pulse: 10/18/2022 96 Last 1 Encounter BP Readings: Date: BP: 10/18/2022 116/81 General Appearance: No apparent distress and well nourished Skin: No jaundice and No rash Lungs: unlabored effort, no conversational dyspnea Musculoskeletal: No edema and No gross deformity Neuro: Alert and oriented to time place and person and gait normal Psych: Well groomed, Affect congruent with mood, and Good eye contact DATA: Diagnostic tests reviewed for today's visit: Most recent labs and imaging results. Estimated Creatinine Clearance: 140.5 mL/min (based on SCr of 0.7 mg/dL). Opioid Management: Yes Indication for Opioid Prescribing: Chronic, Non-cancer pain ORT-OUD Score: 2 A score of 3 or higher may indicate a higher risk for future development of aberrant drug related behavior or opioid use disorder. Informed consent for chronic opiate therapy obtained and written pain agreement: On file Naloxone offered?: Previously prescribed Course of treatment, patient's response and adherence to the prescribed treatment plan reviewed, including non-pharmacological and non-opioid treatment modalities? Yes Have any complications or exacerbations of the underlying condition causing the pain been reviewed?Yes How much does pain impede patient s ability to engage in work or other purposeful activities, interfere with your activities of daily living, physical activity, or quality of your family life and social activities? Significantly Aberrancies in pain panel? No Any aberrant drug related behaviors since last visit? No Rationale for continuing opioid treatment: Improved comfort and function based on an ongoing functional assessment Benefits of Opioid Therapy outweigh risks: Yes Prescribed Morphine Equivalent Daily Dose (MEDD): Yes > 50 MEDD Yes, I am certified in Hospice and Palliative Care, Hematology, Medical Oncology or Pain Medicine OARRS Checked: PDMP website checked and validated. All prescriptions have been APPROPRIATELY filled. No suspiciousactivity was identified. 10/18/2022 by Juan Francisco Hutchinson APRN.CLINICAL TRIAL DATA MANAGER Urine Screen Lab Results Component Value Date UAMPH Negative 02/24/2021 UBARB2 Negative 02/24/2021 UBENZ Negative 02/24/2021 UQBUPRE <20 01/25/2022 UQNORBUP <20 01/25/2022 UCOC2 Negative 02/24/2021 UQCANN <16 01/25/2022 UOPI Negative 02/24/2021 UOXYC Negative 02/24/2021 UPCP Negative 02/24/2021 UTHC Negative 02/24/2021 UETOH <11 02/24/2021 Urine Panel: Lab Results Component Value Date Cannabinoid Quant, Urine <16 01/25/2022 Cannabinoid Quant, Urine <16 02/24/2021 Benzoylecognine Quant, Urine <24 02/24/2021 Benzoylecgonine Quant, Urine <24 01/25/2022 6-Acetylmorphine Quant, Urine <5 01/25/2022 6-Acetylmorphine Quant, Urine <5 02/24/2021 Amphetamine Quant, Urine <5 01/25/2022 Amphetamine Quant, Urine <5 02/24/2021 Methamphetamine Quant, Urine <8 01/25/2022 Methamphetamine Quant, Urine <8 02/24/2021 Buprenorphine Quant, Urine <20 01/25/2022 Buprenorphine Quant, Urine <20 02/24/2021 Norbuprenorphine Quant, Urine <20 01/25/2022 Norbuprenorphine Quant, Urine <20 02/24/2021 Methadone Quant, Urine <16 01/25/2022 Methadone Quant, Urine <16 02/24/2021 EDDP Quant, Urine <6 01/25/2022 EDDP Quant, Urine <6 02/24/2021 Tramadol Quant, Urine <25 01/25/2022 Tramadol Quant, Urine <25 02/24/2021 Desmethyltramadol Quant, Urine <20 01/25/2022 Desmethyltramadol Quant, Urine <20 02/24/2021 Fentanyl Quant, Urine <6 01/25/2022 Fentanyl Quant, Urine <6 02/24/2021 Norfentanyl Quant, Urine <6 01/25/2022 Norfentanyl Quant, Urine <6 02/24/2021 Codeine Quant, Urine <11 01/25/2022 Codeine Quant, Urine <11 02/24/2021 Morphine Quant, Urine <10 01/25/2022 Morphine Quant, Urine <10 02/24/2021 Dihydrocodeine Quant, Urine <5 01/25/2022 Dihydrocodeine Quant, Urine <5 02/24/2021 Hydrocodone Quant, Urine <8 01/25/2022 Hydrocodone Quant, Urine <8 02/24/2021 Oxycodone Quant, Urine 2,574 (H) 01/25/2022 Oxycodone Quant, Urine <10 02/24/2021 Hydromorphone Quant, Urine <5 01/25/2022 Hydromorphone Quant, Urine <5 02/24/2021 Oxymorphone Quant, Urine 2,296 (H) 01/25/2022 Oxymorphone Quant, Urine <5 02/24/2021 Creatinine,Ur Pain [place]casio 70.2 02/24/2021 Urine pH, Pain Ocas[place] 6.3 02/24/2021 Specific [place],Ur Pain Ocasio 1.012 02/24/2021 Oxidants,Ur 46 02/24/2021 Specimen Quality, Ur Pain Ocasio Specimen quality results within acceptable limits. 05/03/2014 Assessment & Plan (Z51.5) Encounter for palliative care (primary encounter diagnosis) - reviewed role of palliative care, contact info, and reasons to call. 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 Ramires (G89.3) Cancer related pain - nociceptive somatic pain associated to prior radiation effects c/b joint pain associated to psoriatic arthritis - exacerbated by immunotherapy; now off immunotherapy for 4 months. Discussed management of chronic noncancer pain with adjuvant therapies. Also reporting excessive fatigue which could certainly be a side effect of poly pharmacy from gabapentin, baclofen, cyclobenzaprine, oxycodone, lorazepam. - suggest routine use of APAP 1000 mg TID - transition gabapentin to pregabalin 100 mg BID - follow up in 4 weeks to discuss weaning other agents - continue oxycodone 10 mg Q6H PRN (counseled on use of benzo and opioids together and increased risk of respiratory depression; narcan previously prescribed) - previously discussed duloxetine - declined. - suggest rheumatology involvement (R25.2) Muscle cramps - much improved and well controlled - continue baclofen 10 mg TID - continue cyclobenzaprine 10 mg TID PRN (F41.9) Anxiety - long standing problem - increases when scans are due - previously reports hydroxyzine was ineffective - current medications managed per oncology ativan - highly encouraged establishing with counselor - she currently does not want to do this due to number of appointments. - would advise addition of SSRI or SNRI (Cymbalta) if persisting. Patient declines Medical Decision Making: Problems: Moderate: 2+ stable chronic illnesses Risk: High: Drug therapy requiring intensive monitoring Medical Decision Making Level: 4 - Moderate Some elements copied from my note on 07/19/22, the elements have been updated and all reflect currentdecision making from today, 10/18/2022. Next Visit: 4 Weeks in person Juan Francisco Hutchinson APRN.CNP October 18, 2022 11:26 AM This note may have been partially generated using the [employer] voice recognition system. While every effort was made to correct voice recognition errors, kindly be aware that some errors may occasionally occur. documented in this encounterOhio[facility]08-31-2023 Instructions* Patient Instructions* Zoila Pedersen RN - 10/18/2022 11:10 AM EDT Use warm compresses to left inner thigh daily for comfort documented in this encounterOhiohealth Southeastern [facility] Center08-31-2023 History of Present illness Narrative* Zoila Pedersen RN - 10/18/2022 10:47 AM EDT INTRALESIONAL INJECTIONS (ILK) NURSING ASSESSMENT: Is the patient having any pain? Yes PAIN EVALUATION 10/18/2022 1048 Pain Level: 1 Pain Location: Thigh-Left Description: Sore Duration Units: Weeks Frequency: Continuous Intervention/Comfort measure: Other: See comment Comments: washes with Dial antibacterial CLINICIAN: Patient ID verified with patient: Yes PATIENT ID VERIFIED BY: Full Name, Washes with Dial soap , allergic to Hibiclens - states clindamycin does not work Joined Facebook group , heard that Vicks works if occluded under a band aid , states she has tried and it works 80% of time to bring lesion to a head. Would like to discuss lancing vs surgical removal of lesion as it has been injected previously. ILK helps to calm site for about 6 weeks at a time Procedure verified with patient: Yes Audible time-out documented: Yes INJECTION PROCEDURE: Hidradenitis suppurativa: Description: Firm and Erythematous Appearance: Not infected Location: left inner thigh Discussed R/B/O of medication including side effects. Patient agrees to proceed.Site cleansed with alcohol. Site injected with ILK as ordered. Total Kenalog 10mg/ml injected : 0.3 ml. Patient tolerated procedure well.. BandAid applied to injection site. Patient encouraged to use warm compresses daily. Left Inner Thigh Total injections: </= 7 FOLLOW UP: 6 weeks with provider Zoila Pedersen RN October 18, 2022 11:09 AM documented in this encounterOhiohealth [facility]08-22-2023 Miscellaneous Notes* Telephone Encounter - Kylie Mosher RN - 10/09/2022 8:14 AM EDT Patient requesting refills as follows: Next PM appt with 10/18/2022 with Juan Francisco Hutchinson CNP Last ordered 09/11/2022 Requested Prescriptions Pending Prescriptions Disp Refills oxyCODONE IR (ROXICODONE) 10 mg tab 120 tablet 0 Sig: Take 1 tablet by mouth every 4 hours as needed (moderate-severe cancer pain) for up to 30 days. Please review and advise. Kylie Mosher RN documented in this encounterOhiohealth Southeastern [facility] Center08-21-2023 Miscellaneous Notes* Telephone Encounter - Flori Ford RN - 10/08/2022 9:57 AM EDT Patient my chart message requesting refills as follows: Last ordered 06/12/22, last pall med visit on 07/19/22 Future appt 10/18/22 Requested Prescriptions Pending Prescriptions Disp Refills baclofen 5 mg tablet 90 tablet 2 Sig: Take 1 tablet by mouth three times daily. Please review and advise. Flori Ford RN documented in this encounterOhiohealth Southeastern [facility] Center07-27-2023 NoteHNO ID: [id number] Author: Summer Carver MD Service: ? 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 She has history of HL status post chemoradiation, Auto BMT In 2013, pulmonary embolism, PjP pneumonia, hypoxic respiratory failure in 2014 We had last met about 7 weeks ago when she was having significant cough and dyspnea issues. She had reported worsening in the respiratory symptoms in May 2022. Aggressive pulmonary toilet was advised, sputum check advised for micro work up, She was last Rx with antibiotic in July ( Doxycycline ) She was advised to get repeat PFT's and close follow up advised, Since the prior visit, her symptoms improved, she had no concerns of active infection. Sputum work up couldn't be done as she didn't have any expectoration to give the sample.. We discussed with oncology that it was ok to continue the immunotherapy. Today, she reports she has been doing well overall She has been using DUONEBS once daily that has helped immensely. She does have a chronic cough but no worsening over the past few months. She has chronic phlegm -mostly in the throat. She has chronic post nasal drip. She also has chronic exertional dyspnea which is also stable. She is on Incruze Ellipta - doesn't feel it helps Recently had PET/ CT scan and not on any chemotherapeutic agent REVIEW OF SYSTEMS GENERAL: No unintentional weight loss, Fatigue, or fever HEENT: Negative for frequent or significant headaches, No changes in hearing or vision, no nose bleeds or other nasal problems. + chronic post nasal drip RESPIRATORY: + improved cough and dyspnea CARDIOVASCULAR: Negative for chest pain, leg swelling or palpitations. PAST MEDICAL HISTORY Diagnosis Date ASCUS favor dysplasia 09/2014 for colpo Dyspareunia Fibroid 04/02/2017 Hodgkin lymphoma (HCC) 01/16/2012 stage IIIB, Nodular sclerosis classical Hodgkin lymphoma Menorrhagia 04/02/2017 PE (pulmonary embolism) Found incidentally on staging CT May 27, 2012 Pneumonitis 2013 Attributed to radiation and brentuximab vedotin Postmenopausal atrophic vaginitis Postmenopausal HRT (hormone replacement therapy) 08/2014 offered Premature menopause 01/2014 FSH 70 normal dxa Tachycardia on atenolol Vaginal high risk human papillomavirus (HPV) DNA test positive 09/28/2014 BP 121/87 Pulse 95 Resp 16 Wt 103.9 kg (229 lb) LMP 11/18/2012 SpO2 96% BMI 31.94 kg/m? PHYSICAL EXAM General appearance: well appearing, alert, in no acute distress Nose/Sinuses: Nares normal, septum midline, mucosa normal, no drainage or sinus tenderness Oropharynx: oropharynx normal, no thrush Respiratory: lungs clear to auscultation. No wheezing, rhonchi, rales unlabored on room air negative findings: no chest deformities noted Cardiovascular: RRR S1 normal, S2 normal DATA: I personally reviewed all data noted PFT: SPIROMETRY - BASELINE AND POST DILATOR ([id number]) - ordered on 11/03/19 [facility] [address] [address] [place] [address] Test Date: 2019-11-03 Pat Name: CELSO POTTS Department: Room: Gender: Female [employer]: Perla Baker : 1980 Requested By: Order Number: [id number] Reading MD: Justin Moreno Interpretive Statements PRE AND POST BD JAE: ATS/ERS acceptability and repeatability standards for spirometry met. All lung volume repeatability criteria met. ATS acceptability and repeatability standards for DLCO met. DLCO is not hemoglobin corrected. Medications and Allergies were reviewed for possible drug interactions per policy. No contraindications or sensitivities were no caleb. Meds taken: Albuterol 17 hours before testing. 2 puffs albuterol (180 mcg) delivered by MDI via valved holding chamber, HRpre=99/min, HRpost= 98/min. //RK IMPRESSION: Spirometry shows no obstruction.The reduced FVC suggests restriction. The TLC is reduced indicating restriction. The diffusing capacity is moderately reduced. The diffusing capacity independent of alveolar volume (kCO), is normal. Electronically Signed On 11-05-2019 12:28:52 EDT by Justin Moreno Brandon LLN Pred ULN % Post % %Chg FVC L 2.43 3.77 4.72 5.70 51.5 2.40 50.8 -1.4 FEV1 L 2.02 3.07 3.84 4.59 52.7 2.07 53.9 2.4 FEV1/FVC % 83 71 82 91 101.3 86 105.2 3.9 PEF L/s 7.39 6.03 8.14 10.25 90.8 6.41 78.7 -13.3 FEF50% L/s 3.35 2.65 4.47 6.28 75.0 4.68 104.9 39.9 FIF50% L/s 5.21 5.27 1.1 FE%FIF % 64 89 38 .4 FIVC L 2.35 2.35 0.0 HPK44-00% L/s 2.36 2.36 3.81 5.55 61.8 3.00 78.7 27.2 ICS918% sec 7.37 5.99 -18.7 FETPEF sec 0.07 0.11 68.2 VBe%FV % 4 5 25.4 VBEex L 0.10 0.12 23.6 FIVC/FVC % 96 98 1.6 ----- ----- ----- ----- ----- ----- ----- ----- FRCpl L 1.31 2.36 3.43 4.49 38.3 ERV L 0.44 (more content not included)...[facility]07-27-2023 History of Present illness Narrative* Summer Carver MD - 09/13/2022 10:00 AM EDT Celso Potts is a 42 year old female here for follow appointment for dyspnea, cough, post XRT related restrictive ventilatory defect and central bronchiectasis. She has history of HL status post chemoradiation, Auto BMT In 2013, pulmonary embolism, PjP pneumonia, hypoxic respiratory failure in 2014 We had last met about 7 weeks ago when she was having significant cough and dyspnea issues. She hadreported worsening in the respiratory symptoms in May 2022. Aggressive pulmonary toilet was advised, sputum check advised for micro work up, She was last Rx with antibiotic in July ( Doxycycline ) She was advised to get repeat PFT's and close follow up advised, Since the prior visit, her symptoms improved, she had no concerns of active infection. Sputum work up couldn't be done as she didn't have any expectoration to give the sample.. We discussed with oncology that it was ok to continue the immunotherapy. Today, she reports she has been doing well overall She has been using DUONEBS once daily that has helped immensely. She does have a chronic cough but no worsening over the past few months. She has chronic phlegm -mostly in the throat. She has chronicpost nasal drip. She also has chronic exertional dyspnea which is also stable. She is on Incruze Ellipta - doesn't feel it helps Recently had PET/ CT scan and not on any chemotherapeutic agent REVIEW OF SYSTEMS GENERAL: No unintentional weight loss, Fatigue, or fever HEENT: Negative for frequent or significant headaches, No changes in hearing or vision, no nose bleeds or other nasal problems. + chronic post nasal drip RESPIRATORY: + improved cough and dyspnea CARDIOVASCULAR: Negative for chest pain, leg swelling or palpitations. PAST MEDICAL HISTORY Diagnosis Date ASCUS favor dysplasia 09/2014 for colpo Dyspareunia Fibroid 04/02/2017 Hodgkin lymphoma (HCC) 01/16/2012 stage IIIB, Nodular sclerosis classical Hodgkin lymphoma Menorrhagia 04/02/2017 PE (pulmonary embolism) Found incidentally on staging CT May 27, 2012 Pneumonitis 2013 Attributed to radiation and brentuximab vedotin Postmenopausal atrophic vaginitis Postmenopausal HRT (hormone replacement therapy) 08/2014 offered Premature menopause 01/2014 FSH 70 normal dxa Tachycardia on atenolol Vaginal high risk human papillomavirus (HPV) DNA test positive 09/28/2014 BP 121/87 Pulse 95 Resp 16 Wt 103.9 kg (229 lb) LMP 11/18/2012 SpO2 96% BMI 31.94 kg/m PHYSICAL EXAM General appearance: well appearing, alert, in no acute distress Nose/Sinuses: Nares normal, septum midline, mucosa normal, no drainage or sinus tenderness Oropharynx: oropharynx normal, no thrush Respiratory: lungs clear to auscultation. No wheezing, rhonchi, rales unlabored on room air negative findings: no chest deformities noted Cardiovascular: RRR S1 normal, S2 normal DATA: I personally reviewed all data noted PFT: SPIROMETRY - BASELINE AND POST DILATOR ([id number]) - ordered on 11/03/19 [facility] [address] [place] [address] Test Date: 2019-11-03 Pat Name: CELSO POTTS Department: Room: Gender: Female [employer]: Perla Baker : 1980 Requested By: Order Number: [id number] Reading MD: Justin Moreno Interpretive Statements PRE AND POST BD JAE: ATS/ERS acceptability and repeatability standards for spirometry met. All lung volume repeatability criteria met. ATS acceptability and repeatability standards for DLCO met. DLCO is not hemoglobin corrected. Medications and Allergies were reviewed for possible drug interactions per policy. No contraindications or sensitivities were no caleb. Meds taken: Albuterol 17 hours before testing. 2 puffs albuterol (180 mcg) delivered by MDI via valved holding chamber, HRpre=99/min, HRpost= 98/min. //RK IMPRESSION: Spirometry shows no obstruction.The reduced FVC suggests restriction. The TLC is reduced indicating restriction. The diffusing capacity is moderately reduced. The diffusing capacity independent of alveolar volume (kCO), is normal. Electronically Signed On 11-05-2019 12:28:52 EDT by Justin Mroeno Brandon LLN Pred ULN % Post % %Chg FVC L 2.43 3.77 4.72 5.70 51.5 2.40 50.8 -1.4 FEV1 L 2.02 3.07 3.84 4.59 52.7 2.07 53.9 2.4 FEV1/FVC % 83 71 82 91 101.3 86 105.2 3.9 PEF L/s 7.39 6.03 8.14 10.25 90.8 6.41 78.7 -13.3 FEF50% L/s 3.35 2.65 4.47 6.28 75.0 4.68 104.9 39.9 FIF50% L/s 5.21 5.27 1.1 FE%FIF % 64 89 38 .4 FIVC L 2.35 2.35 0.0 MPG25-73% L/s 2.36 2.36 3.81 5.55 61.8 3.00 78.7 27.2 KSU754% sec 7.37 5.99 -18.7 FETPEF sec 0.07 0.11 68.2 VBe%FV % 4 5 25.4 VBEex L 0.10 0.12 23.6 FIVC/FVC % 96 98 1.6 ----- ----- ----- ----- ----- ----- ----- ----- FRCpl L 1.31 2.36 3.43 4.49 38.3 ERV L 0.44 RV L 0.87 1.10 1.88 2.65 46.6 VC L 2.43 3.77 4.72 5.70 51.5 IC L 1.99 3.02 3.02 3.02 66.0 TLC L 3.31 5.03 6.11 7.18 54.1 RV%TLC % 26 19 30 41 88.9 ----- ----- ----- ----- ----- ----- ----- ----- ----- ----- ----- ----- ----- ----- ----- ----- DLCO_SBml/(min*m15.17 20.53 27.03 33.53 56.1 VA_SB L 3.07 5.11 6.21 7.32 49.4 DL/VAml/(min*mmHg4.94 3.17 4.48 5.80 110.3 IVC_SB L 2.31 3.77 4.72 5.70 49.0 IC_SB L 1.81 3.02 3.02 3.02 60.1 BHT sec 9.66 ----- ----- ----- ----- ----- ----- ----- ----- Pbar mmHg 751.00 Pre Spirometry PET SCAN 07/2022 COMPARISON: [facility] PET-CT: 02/26/2022 CORRELATION: CT of the chest, 07/17/2022. RESULTS: Topogram review: Unremarkable, no acute findings. No retained foreign body. Head and Neck: No evidence of focal uptake to suggest FDG avid neoplastic process. Stable subcentimeter bilateral cervical lymph nodes with mild FDG uptake, likely reactive in nature. Index lesions: Stable 1 x 0.5 cm right submandibular lymph node with max SUV 3.4. Chest: No evidence of focal uptake to suggest FDG avid neoplastic process. Interval decreased metabolism of left apical opacity. Stable scarring and atelectasis in the bilateral lung. Interval development of small left pleural effusion. Abdomen and Pelvis: No evidence of focal uptake to suggest FDG avid neoplastic process. Interval resolution of mesenteric lymph node with minimal residual scarring. Extremities/Skeleton: No evidence of focal uptake to suggest FDG avid neoplastic process. Degenerative arthritic change. IMPRESSION: 1. HEAD and NECK: No evidence of focal uptake to suggest FDG avid neoplastic process.. 2. CHEST: No evidence of focal uptake to suggest FDG avid neoplastic process.. 3. ABDOMEN/PELVIS: No evidence of focal uptake to suggest FDG avid neoplastic process.. 4. EXTREMITIES/SKELETON: No evidence of focal uptake to suggest FDG avid neoplastic process.. *[place] Criteria Score: 1 Liver parenchyma Max SUV 3.3. Mediastinum blood pool Max SUV 2.2. 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) Chronic cough (Z86.711) History of pulmonary embolism Comment: Plan: Hodgkin's seem to be controlled based on PET/CT scan Cough and dyspnea overall improved Trial of Breo 1 puff daily D/C Incruze Continue DUONEBS 1-2 times /day She has post XRT changes in the airways / with with bronchiectasis likely leading to some of the chronic mucus production Control of upper airways symptoms would also help with the Post nasal drip and chronic cough Continue anticoagulation for PE F/u 3 MONTHS WITH SARAH , PFT that day Summer Carver MD, [facility] Respiratory [place] documented in this encounterOhio[facility]07-05-2023 NoteHNO ID: [id number] Author: Cyn Ramires MD Service: ? Author Type: Physician Type: Progress Notes Filed: 08/22/2022 3:08 PM Note Text: Diagnosis: Recurrent HL, initially Stage IIIb, Nodular sclerosis classical Hodgkin lymphoma diagnosed on 01/16/2012. (age at diagnosis 31YOF, ESR normal, WBC, Hgb, Lymph and alb normal) Previous Treatment: ABVD started on 02/11/2012 x 12 doses progressed to month after stopping treatment ICE x3 progressed after stopping treatment 3 cycles of Brentuximab Vedotin (Adcetris) followed by Auto BMT high-dose busulfan, etoposide, and cyclophosphamide with autologous hematopoietic progenitor cell transplantation in 02/2013 45 Gy in 25 fx was delivered to the mediastinal/hilar/left SC faustina regions using 6 MV photons from 07/27/2013 ? 08/31/2013. Brentuximab Vedotin (Adcetris) Started 02/04/2014 stopped to neuropathy Nivolumab (Opdivo) started Nov 18 2014 stopped early 2019 Ibrutinib started early 2019. Ordered April 22, 2019 stopped oct AREA TREATED: right mesenteric LN COURSE: definitive CURRENT DOSE: 2400 cGy in 03 fx PLANNED DOSE: 2400 cGy in 03 fx Current Treatment: Pembrolizumab 200 mg every 3 weeks started on November 09, 2019 Palliative radiation to be done end March 2020 secondary to mild progression and continue pembrolizumab after HPI: This is a 40 year old female with no significant PMH presented in August [address] in the neck and left axillary area. She was treated with multiple courses of IV antibiotics without improvement. + B symptoms (fever, drenching night sweats but no wt. loss) and itching rash in the lower exts. Left Axillary LN excisional biopsy: Nodular sclerosis classical Hodgkin lymphoma Feb [address]: IMPRESSION: FINDINGS COMPATIBLE WITH MILD RIGHT CERVICAL AND LEFT ANTERIOR SUBDIAPHRAGMATIC ADENOPATHY, MODERATE TO SEVERE HYPERMETABOLIC BILATERAL AXILLARY AND SUPRACLAVICULAR (LEFT GREATER THAN RIGHT), SUPERIOR MEDIASTINAL, RIGHT PARATRACHEAL, AND ANTERIOR MEDIASTINAL ADENOPATHY. FINDINGS SUSPICIOUS OF HYPERMETABOLIC SPLENIC LYMPHOMATOUS INVOLVEMENT. Bone Marrow Bx was negative incidental finding of pulmonary embolism on CT chest. Patient was started on Lovenox on May 27, 2012 Relapsed S/P 3 cycles of ICE with progression, S/P Brentuximab Vedotin (Adcetris) and Auto BMT Radiation to the chest complicated with Radiation pneumonitis Brentuximab Vedotin (Adcetris) stopped 2nd to grade III pneumonitis She saw Dr. Alejandro sarmiento at [facility] for 2nd opinion cell([phone]) She agreed with out plan and recommended repeat of her PET and if progressed either Opdivo vs clinical trial March 02, 2018 CT chest abdomen and pelvis mild progression of the lymph nodes in the abdomen and pelvis. PET scan was recommended Early 2018 patient was diagnosed with psoriasis (multiple 1-2 cm spots on her extremities). Patient stated rash started when we changed to every 4 weeks dosing. We'll resume every 2 weeks dosing and psoriasis is better to stable 03/13/2019 PET scan showed progression IMPRESSION: 1. NECK: * No FDG avid neoplastic process. 2. CHEST:* No FDG avid neoplastic process. 3. ABDOMEN/PELVIS:* Interval progression of retroperitoneal faustina metastatic disease with increase in size and FDG avidity of nodes/conglomerate masses in the upper abdomen since 03/08/2017. * Development of new FDG avid hepatic metastases in segments II and IVb. * FDG avid splenic lesion has increased in size and relative FDG avidity since the prior exam. 4. EXTREMITIES/SKELETON: No suspicious FDG avid osseous lesion. Deauville score: 5 Ibrutinib was orderef on 04/22/2019 PET scan October 2019 showed disease progression. Ibrutinib was stopped. Pembrolizumab was started in October 2019 PET scan March 2020 mild disease progression Palliative radiation was recommended April 2020 Palliative radiation to the spleen, liver and lymph node at main campus PET showed progression early 2022March 2019 AREA TREATED: right mesenteric LN COURSE: definitive CURRENT DOSE: 2400 cGy in 03 fx PLANNED DOSE: 2400 cGy in 03 fx Interval history: Patient is here for follow-up on above diagnosis. She is doing well off treatment. Denies any symptoms. Patient stated this is the best she felt ever. Otherwise no other complaint no fever no nausea or night sweats PAST MEDICAL HISTORY: History of tachycardia treated with atenolol, pulmonary embolism incidentally found on restaging CT (May 27, 2012). 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 [facility]07-05-2023 Instructions* Patient Instructions* Gunjan Joya LPN - 08/22/2022 2:50 PM EDT Follow up with Dr. Ramires in the beginning of November Patient will schedule PET scan documented in this encounterOhio[facility]07-[facility]23 History of Present illness Narrative* Cyn Ramires MD - 08/22/2022 2:28 PM EDT Diagnosis: Recurrent HL, initially Stage IIIb, Nodular sclerosis classical Hodgkin lymphoma diagnosed on 01/16/2012. (age at diagnosis 31YOF, ESR normal, WBC, Hgb, Lymph and alb normal) Previous Treatment: ABVD started on 02/11/2012 x 12 doses progressed to month after stopping treatment ICE x3 progressed after stopping treatment 3 cycles of Brentuximab Vedotin (Adcetris) followed by Auto BMT high-dose busulfan, etoposide, and cyclophosphamide with autologous hematopoietic progenitor cell transplantation in 02/2013 45 Gy in 25 fx was delivered to the mediastinal/hilar/left SC faustina regions using 6 MV photons from07/27/2013 ? 08/31/2013. Brentuximab Vedotin (Adcetris) Started 02/04/2014 stopped 2nd to neuropathy Nivolumab (Opdivo) started Nov 18 2014 stopped early 2019 Ibrutinib started early 2019. Ordered April 22, 2019 stopped oct AREA TREATED: right mesenteric LN COURSE: definitive CURRENT DOSE: 2400 cGy in 03 fx PLANNED DOSE: 2400 cGy in 03 fx Current Treatment: Pembrolizumab 200 mg every 3 weeks started on November 09, 2019 Palliative radiation to be done end of March 2020 secondary to mild progression and continue pembrolizumab after HPI: This is a 40 year old female with no significant PMH presented in August [address] in the neck and left axillary area. She was treated with multiple courses of IV antibiotics without improvement. + B symptoms (fever, drenching night sweats but no wt. loss) and itching rash in the lower exts. Left Axillary LN excisional biopsy: Nodular sclerosis classical Hodgkin lymphoma Feb [address]: IMPRESSION: FINDINGS COMPATIBLE WITH MILD RIGHT CERVICAL AND LEFT ANTERIOR SUBDIAPHRAGMATIC ADENOPATHY, MODERATE TO SEVERE HYPERMETABOLIC BILATERAL AXILLARY AND SUPRACLAVICULAR (LEFT GREATER THAN RIGHT), SUPERIOR MEDIASTINAL, RIGHT PARATRACHEAL, AND ANTERIOR MEDIASTINAL ADENOPATHY. FINDINGS SUSPICIOUS OF HYPERMETABOLIC SPLENIC LYMPHOMATOUS INVOLVEMENT. Bone Marrow Bx was negative incidental finding of pulmonary embolism on CT chest. Patient was started on Lovenox on May 27, 2012 Relapsed S/P 3 cycles of ICE with progression, S/P Brentuximab Vedotin (Adcetris) and Auto BMT Radiation to the chest complicated with Radiation pneumonitis Brentuximab Vedotin (Adcetris) stopped 2nd to grade III pneumonitis She saw Dr. Alejandro sarmiento at [facility] for 2nd opinion cell([phone]) She agreed with out plan and recommended repeat of her PET and if progressed either Opdivo vs clinical trial March 02, 2018 CT chest abdomen and pelvis mild progression of the lymph nodes in the abdomen andpelvis. PET scan was recommended Early 2018 patient was diagnosed with psoriasis (multiple 1-2 cm spots on her extremities). Patientstated rash started when we changed to every 4 weeks dosing. We'll resume every 2 weeks dosing and psoriasis is better to stable 03/13/2019 PET scan showed progression IMPRESSION: 1. NECK: * No FDG avid neoplastic process. 2. CHEST:* No FDG avid neoplastic process. 3. ABDOMEN/PELVIS:* Interval progression of retroperitoneal faustina metastatic disease with increase in size and FDG avidity of nodes/conglomerate masses in the upper abdomen since 03/08/2017. * Development of new FDG avid hepatic metastases in segments II and IVb. * FDG avid splenic lesion has increased in size and relative FDG avidity since the prior exam. 4. EXTREMITIES/SKELETON: No suspicious FDG avid osseous lesion. Deauville score: 5 Ibrutinib was orderef on 04/22/2019 PET scan October 2019 showed disease progression. Ibrutinib was stopped. Pembrolizumab was started in October 2019 PET scan March 2020 mild disease progression Palliative radiation was recommended April 2020 Palliative radiation to the spleen, liver and lymph node at main campus PET showed progression early 2022March 2019 AREA TREATED: right mesenteric LN COURSE: definitive CURRENT DOSE: 2400 cGy in 03 fx PLANNED DOSE: 2400 cGy in 03 fx Interval history: Patient is here for follow-up on above diagnosis. She is doing well off treatment. Denies any symptoms. Patient stated this is the best she felt ever. Otherwise no other complaint no fever no nausea or night sweats PAST MEDICAL HISTORY: History of tachycardia treated with atenolol, pulmonary embolism incidentallyfound on restaging CT (May 27, 2012). 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 PHYSICAL EXAM: BP 105/74 Pulse 100 Temp 37 C (98.6 F) (Oral) LMP 11/18/2012 SpO2 94% General: NAD, ECOG PS:1 No paleness or jaundice lymph system: No lymphadenopathy in the neck. SC or axillary area BL. Heart: S1, S2, RRR Lung: CTA (BL), no wheezing or crackles Abd: No tenderness, or distension. Soft Extremities: No pitting edema, or cyanosis DATA CBC, CMP, TSH were reviewed in [facility]. PET scan report and images were reviewed in [facility]. Results werediscussed with patient and radiation oncology ASSESSMENT AND PLAN: 1. 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 Complete PET CR after 4 doses of ABVD (2 cycles). Finished 12 doses of ABVD and progressed soon after finishing treatment, 3 cycles of salvage ICE relapsed after finishing treatment before bone marrow transplant. S/P Brentuximab Vedotin (Adcetris) followed by Auto BMT. Relapsed in June 2013. chest radiation. Relapsed on January 20, 2014. Declined Allo SCT Dr. Del Valle did palliative radiation to the spleen, liver and lymph nodes Another course of radiation March 2022 PET scan July 2022 complete remission. Continue surveillance and continue holding pembrolizumab Pembrolizumab has been on hold since April 2022 2. History Pulmonary embolism: recurrence after being off AC since she had her Auto transplant. Currently on xeralto and tolerating it well we will continue 3. Neuropathy: Stable continue Neurontin. 600 mg TID currently not affecting her function 4. Depression on Remeron 30 mg stable 5. History Herpes zoster continue with prophylactic dose of Acyclovir 400 mg twice daily 6. Hx PJP pneumonia: Allergic to Bactrim. Was treated with Primaquine and clindamycin follow up with Dr. Sigala ID was On dapsone for prophylaxis. stopped CD 4 continued to be above 200 8. History muscle cramps better with 2 muscle relaxant 9. Psoriasis noted diagnosis unclear if related to Nivolumab will go back to every 2 weeks regimen 10. Cancer pain continue oxycodone 5 mg 3 times daily Consult palliative medicine 11. Slightly elevated AST and ALT we will continue to monitor with CMP prior to each treatment Patient verbalized understanding and agreed with above plan Documentation from my notes of previous visit on 07/18/2022 was copied and pasted, documentation has been reviewed and edited as necessary and is current for today 08/22/2022 Cyn Ramires MD, FACP CC: Jose Parra documented in this encounterOhio[facility]06-27-2023 Miscellaneous Notes* Telephone Encounter - Juan Francisco Hutchinson APRN.CLINICAL TRIAL DATA MANAGER - 08/14/2022 1:29 PM EDT [facility] and validated. All prescriptions have been APPROPRIATELY filled. No suspiciousactivity was identified. 08/14/2022 by Juan Francisco Hutchinson APRN.CLINICAL TRIAL DATA MANAGER Rx sent Juan Francisco Hutchinson APRN.CLINICAL TRIAL DATA MANAGER * Telephone Encounter - Kristina Pete RN - 08/13/2022 5:21 PM EDT Patient phones requesting refills as follows: Requested Prescriptions Pending Prescriptions Disp Refills oxyCODONE IR (ROXICODONE) 10 mg tab 120 tablet 0 Sig: Take 1 tablet by mouth every 4 hours as needed (moderate-severe cancer pain) for up to 30 days. Please review and advise. Kristina Pete RN documented in this encounterOhiohealth [facility]heastern Medical Center06-27-2023 NoteHNO ID: [id number] Author: DIMA Julien) Service: ? Author Type: Technologist Type: Progress Notes Filed: 08/14/2022 11:24 AM Note Text: RADIOLOGY SERVICE PROGRESS NOTE SERVICE DATE: 08/14/2022 SERVICE TIME: 11:23 AM PATIENT IDENTITY VERIFICATION COMPLETED USING TWO (2) STANDARD IDENTIFIERS: Name and Date of confirmed by patient verbally POST EXAM PIV STATUS: Discontinued PROCEDURE TYPE: NM INJECT: PET/CT BODY SCAN. 11.6 mCi F18 FDG. No other medications given.. ADMINISTRATION TIME: 1109 PATIENT DISCHARGED TO: Ambulatory patient, left DC department area. A Diagnostic radioactive procedure has taken place, with no further precautions necessary other than routine body substance precautions. More information regarding radiation safety can be found using this link: [email or web address] SIGNATURE: RT Anaya(R) PATIENT NAME: Celso Potts DATE: August 14, 2022 TIME: 11:23 AM PAGER/CONTACT #:[facility]06-27-2023 NoteHNO ID: [id number] Author: Radha Song RN Service: ? Author Type: Registered Nurse Type: Progress Notes Filed: 08/14/2022 11:59 AM Note Text: Radiology Service Progress Note DATE OF SERVICE: August 14, 2022 TIME: 10:58 AM PATIENT IDENTITY VERIFICATION COMPLETED USING TWO (2) STANDARD IDENTIFIERS: Name and Date of confirmed by patient verbally. FALL SCREENING: Has the patient had 2 falls in the last year or 1 fall with injury or currently using an Ambulatory Assistive Device (Walker, Cane, Wheelchair, Crutches, etc.)? No PATIENT GENDER DATA: Female. status: : No status: NO. EXAM: CT -CONTRAST INDUCED CREATININE: Creatinine Date Value Ref Range Status 05/14/2022 0.70 0.58 - 0.96 mg/dL Final 04/30/2022 0.69 0.58 - 0.96 mg/dL Final 04/06/2022 0.73 0.58 - 0.96 mg/dL Final Estimated Glomerular Filtration Rate Date Value Ref Range Status 05/14/2022 113 >=60 mL/min/1.73m? Final Comment: Estimated Glomerular Filtration Rate (eGFR) is calculated using the 2020 CKD-EPI creatinine equation. This equation utilizes serum creatinine, sex, and age as parameters. The creatinine assay has traceable calibration to isotope dilution-mass spectrometry. Refer to KDIGO guidelines for clinical interpretation. In patients with unstable renal function, e.g. those with acute kidney injury, the eGFR may not accurately reflect actual GFR. eGFR- Date Value Ref Range Status 04/05/2021 >60 Final P.O.C.T. RESULTS: N/A August 14, 2022 TREATMENT: N/A IV SITE: Ambulatory: A peripheral IV was started in the Right antecubital site with a Angio cath: 22 gauge. IV SITE APPEARANCE: Clean,Dry and Intact SIGNATURE: Radha Song RN PATIENT NAME: Celso Potts DATE: August 14, 2022 TIME: 10:58 [facility]06-16-2023 Miscellaneous Notes* Telephone Encounter - Ella Chan APRN.CNP - 08/03/2022 12:15 PM EDT Called and spoke with patient, updated her on the plan discussed with Dr. Carver. She is aware of herscheduled appointment for 09/13. * Telephone Encounter - Mitzi Brown - 08/03/2022 8:34 AM EDT Patient is scheduled for 09/13 at 10am * Telephone Encounter - Ella Chan APRN.CNP - 08/02/2022 4:42 PM EDT Discussed patient's recent CT scan with Dr. Carver via telephone and also her most recent office visit. Ms. Potts reports improvement in her symptoms since her last visit. She still has a chronic productive cough. No constitutional signs of an infection, in terms of fever, chills, nightsweats or general malaise. We will plan to for repeat PFTs in August followed by office visit with Dr. Carver. Her most recent CT still shows some airway disease as well as unchanged reticular nodular opacities. She was provided with cup for sputum sample in May and again yesterday. We will await sputum sample results. If negative, we will be ok with her continuing her immunotherapy infusions. Plan was discussed with Dr. Carver. I called Celso to discuss plan, I was only able to reach her VM. Will try to call her at another time. documented in this encounterOhiohealth [facility]06-14-2023 NoteHNO ID: [id number] Author: Ella Chan APRN.CNP Service: ? Author Type: Nurse Practitioner Type: Progress Notes Filed: 08/01/2022 8:01 PM Note Text: [facility] Date: August 01, 2022 8:48 AM Name: Celso Potts : 1980 CC: Pulmonary follow-up Celso Potts is a 42 year old female with PMH recurrent Hodgkin's Lymphoma (dx 01/16/2012), s/p autologous SCT 2013, palliative radiation to spleen, liver and lymph nodes (04/2020), chronic bronchitis, dyspnea, post nasal drip, pulmonary embolism on xarelto, restrictive ventilator defect, and post radiation changes on CT chest, PJP pneumonia allergic to bactrim treated with (primaquine and clindamycin) here today for pulmonary follow-up. Currently on Keytruda every 3 weeks started 10/[address] Ramires. Has been on hold due to recent respiratory infections ASSESSMENT AND PLAN: 1. Chronic cough - ICD9: 786.2, ICD10: R05.3 (primary diagnosis) 2. Productive cough - ICD9: 786.2, ICD10: R05.8 (primary diagnosis) 2. Dyspnea on exertion - ICD9: 786.09, ICD10: R06.09 3. Opacity of lung on imaging study - ICD9: 793.19, ICD10: R91.8 - Most recent PFTs 12/25/2019 with no obstruction. Reduced FVC and TLC indication restriction. Moderately reduced DLCO 56%. History of chronic bronchitis. Hodgkins Lymphoma s/p chemotherapy and radiation to the lungs. Now on Pembrolizumab 200 mg every 3 weeks since November 09, 2019. Keytruda has been on hold d/t recent respiratory infections. Last infusion was 05/01/2022. Is now pending pulmonary clearance to re-start infusions. CT chest 07/17/2022 with more conspicuous mosaic attenuation b/l lung filed, stable nodular opacities, stable left pleural effusion . - Her respiratory symptoms are stable to improved. Her chest tightness and dyspnea has improved since switching from albuterol to duoneb nebulizer. No wheezing on exam. Still has productive cough. - Will start more aggressive airway clearance to help with phlegm - Start airway clearance routine duoneb followed by nebulized saline followed by acapella. Discussed that the duoneb is helping dry her secretions, however she reports it helps with her chest tightness compared to albuterol so will continue with the duonebs. - Continue to use duonebs q6h prn sob/wheezing. - Continue Incruse Ellipta one puff daily. She does not feel any difference with incruse. Will consider switching to LAMA/LABA inhaler. She gets frequent PNA infections will avoid ICS. - Will discuss patient's most recent CT/chart with Dr. Mehul to decide if any further workup necessary or if we can proceed with immunotherapy infusion. Will notify Dr. Ramires once I have discussed with Dr. Carver - Please provide respiratory sample - SODIUM CHLORIDE 3 % FOR NEBULIZATION - RESP CULTURE + STAIN Follow up in 3 months and prn I have discussed the above recommendations in detail with the patient. Patient verbalizes understanding and is in agreement with plan as stated above. Patient has been instructed to call our office, their PCP, or go to the nearest emergency department for new or worsening problems, including but not limited to, increasing shortness of breath, cough, fever, or chills. Electronically signed by Ella Chan APRN.[facility] Respiratory [place], [facility] July 31, 2022 HPI: Celso Potts is a 42 year old female with PMH Hodgkin's Lymphoma (dx 01/16/2012), s/p autologous SCT 2013, palliative radiation to spleen, liver and lymph nodes (04/2020), chronic bronchitis, dyspnea, post nasal drip, pulmonary embolism on xarelto, restrictive ventilator defect, and post radiation changes on CT chest, PJP pneumonia allergic to bactrim treated with (primaquine and clindamycin) here today for pulmonary follow-up . She was last seen in the pulmonary office on 06/04/2022 by SARAH. AANDP from that visit as follows: ASSESSMENT/PLAN: 1. Abnormal CT of the chest - ICD9: 793.2, ICD10: R93.89 (primary diagnosis) 2. Opacity of lung on imaging study - ICD9: 793.19, ICD10: R91.8 3. Simple chronic bronchitis (HCC) - ICD9: 491.0, ICD10: J41.0 4. Dyspnea on exertion - ICD9: 786.09, ICD10: R06.09 5. History of pulmonary embolism - ICD9: V12.55, ICD10: Z86.711 - Most recent PFTs 12/25/2019 with no obstruction. Reduced FVC and TLC indication restriction. Moderately reduced DLCO 56%. History of chronic bronchitis. Hodgkins Lymphoma s/p chemotherapy and radiation to the lungs. Now on Pembrolizumab 200 mg every 3 weeks since November 09, 2019. - Productive cough with SOB since the past few months that has not resolved. - CT chest 05/31 with new reticular nodular opacities in the RML. Will treat with antibiotics and steroid and repeat CT scan to monitor for resolution in 6-8 weeks. - AMOXICILLIN 875 MG-POTASSIUM CLAVULANATE 125 MG TABLET - DOXYCYCLINE HYCLATE 100 MG CAPSULE - PREDNISONE 20 MG TABLET - RESP CULTURE + STAIN - CT CHEST WO IVCON (more content not included)...[facility] 08-01-2022 Instructions* Patient Instructions* Ella Chan APRN.CNP - 08/01/2022 10:15 AM EDT Start airway clearance: Bronchiectasis sputum orders. BPH for Bronchiectasis Advised good daily bronchopulmonary hygiene: Please start using these nebulizer's twice daily. Start with Duoneb nebulizer solution. Followed by sodium chloride (NEBUSAL) 3 % nebulizer solution.THEN use acapella for 10-15 breaths. Do this routine at least twice daily. Can increase to three. Please submit respiratory sample in cup provided. documented in this encounterOhiohealth [facility]06-14-2023 History of Present illness Narrative* Ella Chan APRN.CNP - 08/01/2022 10:00 AM EDT Images from the original note were not included. [facility] Date: August 01, 2022 8:48 AM Name: Celso Potts : 1980 CC: Pulmonary follow-up Celso Potts is a 42 year old female with PMH recurrent Hodgkin's Lymphoma (dx 01/16/2012), s/p autologous SCT 2013, palliative radiation to spleen, liver and lymph nodes (04/2020), chronic bronchitis, dyspnea, post nasal drip, pulmonary embolism on xarelto, restrictive ventilator defect, and post radiation changes on CT chest, PJP pneumonia allergic to bactrim treated with (primaquine and clindamycin) here today for pulmonary follow-up. Currently on Keytruda every 3 weeks started 10/[address] Ramires. Has been on hold due to recent respiratory infections ASSESSMENT & PLAN: 1. Chronic cough - ICD9: 786.2, ICD10: R05.3 (primary diagnosis) 2. Productive cough - ICD9: 786.2, ICD10: R05.8 (primary diagnosis) 2. Dyspnea on exertion - ICD9: 786.09, ICD10: R06.09 3. Opacity of lung on imaging study - ICD9: 793.19, ICD10: R91.8 - Most recent PFTs 12/25/2019 with no obstruction. Reduced FVC and TLC indication restriction. Moderately reduced DLCO 56%. History of chronic bronchitis. Hodgkins Lymphoma s/p chemotherapy and radiation to the lungs. Now on Pembrolizumab 200 mg every 3 weeks since November 09, 2019. Keytruda has been on hold d/t recent respiratory infections. Last infusion was 05/01/2022. Is now pending pulmonaryclearance to re-start infusions. CT chest 07/17/2022 with more conspicuous mosaic attenuation b/l lung filed, stable nodular opacities, stable left pleural effusion . - Her respiratory symptoms are stable to improved. Her chest tightness and dyspnea has improved since switching from albuterol to duoneb nebulizer. No wheezing on exam. Still has productive cough. - Will start more aggressive airway clearance to help with phlegm - Start airway clearance routine duoneb followed by nebulized saline followed by acapella. Discussed that the duoneb is helping dry her secretions, however she reports it helps with her chest tightness compared to albuterol so will continue with the duonebs. - Continue to use duonebs q6h prn sob/wheezing. - Continue Incruse Ellipta one puff daily. She does not feel any difference with incruse. Will consider switching to LAMA/LABA inhaler. She gets frequent PNA infections will avoid ICS. - Will discuss patient's most recent CT/chart with Dr. Carver to decide if any further workup necessary or if we can proceed with immunotherapy infusion. Will notify Dr. Ramires once I have discussed with Dr. Carver - Please provide respiratory sample - SODIUM CHLORIDE 3 % FOR NEBULIZATION - RESP CULTURE + STAIN Follow up in 3 months and prn I have discussed the above recommendations in detail with the patient. Patient verbalizes understanding and is in agreement with plan as stated above. Patient has been instructed to call our office, their PCP, or go to the nearest emergency department for new or worsening problems, including but not limited to, increasing shortness of breath, cough, fever, or chills. Electronically signed by Ella Chan APRN.[facility] Respiratory [place], [facility] July 31, 2022 HPI: Celso Potts is a 42 year old female with PMH Hodgkin's Lymphoma (dx 01/16/2012), s/p autologous SCT 2013, palliative radiation to spleen, liver and lymph nodes (04/2020), chronic bronchitis, dyspnea, post nasal drip, pulmonary embolism on xarelto, restrictive ventilator defect, and post radiation changes on CT chest, PJP pneumonia allergic to bactrim treated with (primaquine and clindamycin)here today for pulmonary follow-up . She was last seen in the pulmonary office on 06/04/2022 by SARAH. A&P from that visit as follows: ASSESSMENT/PLAN: 1. Abnormal CT of the chest - ICD9: 793.2, ICD10: R93.89 (primary diagnosis) 2. Opacity of lung on imaging study - ICD9: 793.19, ICD10: R91.8 3. Simple chronic bronchitis (HCC) - ICD9: 491.0, ICD10: J41.0 4. Dyspnea on exertion - ICD9: 786.09, ICD10: R06.09 5. History of pulmonary embolism - ICD9: V12.55, ICD10: Z86.711 - Most recent PFTs 12/25/2019 with no obstruction. Reduced FVC and TLC indication restriction. Moderately reduced DLCO 56%. History of chronic bronchitis. Hodgkins Lymphoma s/p chemotherapy and radiation to the lungs. Now on Pembrolizumab 200 mg every 3 weeks since November 09, 2019. - Productive cough with SOB since the past few months that has not resolved. - CT chest 05/31 with new reticular nodular opacities in the RML. Will treat with antibiotics and steroid and repeat CT scan to monitor for resolution in 6-8 weeks. - AMOXICILLIN 875 MG-POTASSIUM CLAVULANATE 125 MG TABLET - DOXYCYCLINE HYCLATE 100 MG CAPSULE - PREDNISONE 20 MG TABLET - RESP CULTURE + STAIN - CT CHEST WO IVCON - Continue incruse ellipta and spiriva daily. - Continue albuterol HFA prn for SOB and wheezing - Continue albuterol nebulizer can increase to q4h until you start feeling better, then return to q4h as needed. - Will consider updated PFTs after next appointment. - Continue to follow with heme/onc. Would recommend holding off on next pembrolizumab treatment until after therapy for lung infection and after repeat CT chest. Will monitor for resolution of symptoms and new opacities at next visit. Follow-up in 6 weeks and prn Chart review: 07/26 doxycyline for HS Since then, no unplanned hospitalizations for breathing issues. Today, she reports she has been doing ok. Reports she improved after her last visit with the antibiotics and steroids. Her cough got better and then she feels like it came back mildly after that therapy ended. She still has a cough andshe has been using mucinex to help her cough stuff up . Reports her phlegm is thick and sticky. No shortness of breath at rest. She does have occasional JOE. Always has chest tightness. Duonebs helps a lot with her chest tightness has helped more than the albuterol nebulizer. She does not feel sick or that she has a respiratory infection. No fevers, chills, lightheadedness,hemoptysis, nightsweats Dont feel sick , chest pain or chest pressure. She usually does one nebulizer treatment before bed and has been using BID since last week. She does not feel like her respiratory symptoms have gotten worse. She feels like they are not as bad as they were at her last visit. Feels like her wheezing is back, not terrible. She notices the wheezing more at night, duonebs help. She is using her incruse daily. She does not know if she notices any difference with it. A complete ROS was preformed and all areas were negative except for what is listed in the HPI Modified Medical Research [place] Dyspnea Scale (MMRC) I only get breathless with strenous exercise 0 I get short of breath when hurrying on level ground or walking up a slight hill 1 On level ground I walk slower than people of the same age because of breathlessness, or have to stop for breath when walking at my own pace 2 I stop for breath after walking about 100 yards or after a few minutes on level ground 3 I am too breathless to leave the house or I am breathless when dressing 4 Current airway regimen: Duonebs Incruse ellipta Albuterol Current Outpatient Medications Medication Sig doxycycline monohydrate (MONODOX) 100 mg capsule Take 1 capsule by mouth twice daily. LORazepam (ATIVAN) 0.5 mg take 1 tablet by mouth twice a day if needed and take 1 TO 2 at bedtime if needed oxyCODONE IR (ROXICODONE) 10 mg tab Take 1 tablet by mouth every 4 hours as needed (moderate-severecancer pain) for up to 30 days. ipratropium-albuterol (DUONEB) 0.5 mg-3 mg(2.5 mg base)/3 mL nebu Inhale 3 mL as instructed every 6hours as needed for wheezing/shortness of breath. baclofen (LIORESAL) 5 mg tablet Take 1 tablet by mouth three times daily. INCRUSE ELLIPTA 62.5 mcg/actuation inhaler Inhale 1 Puff as instructed once daily. acyclovir (ZOVIRAX) 400 mg tablet take 1 tablet by mouth twice a day cyclobenzaprine (FLEXERIL) 10 mg tablet Take 1 tablet by mouth three times daily as needed for muscle spasm. prochlorperazine (COMPAZINE) 10 mg tablet Take 1 tablet by mouth every 6 hours as needed. gabapentin (NEURONTIN) 300 mg capsule Take 2 capsules by mouth three times daily for 180 days. tretinoin (RETIN-A) 0.05 % cream Apply a pea size amount to affected area every other night for 2 weeks then increase to daily as tolerated XARELTO 10 mg tablet take 1 tablet by mouth once daily albuterol HFA (VENTOLIN HFA) 90 mcg/actuation inhaler Inhale 2 Puffs as instructed every 4 hours asneeded for wheezing/shortness of breath. fluocinonide (LIDEX) 0.05 % cream apply to affected area ON THE RIGHT HAND and legs TWICE A DAY naloxone 4 mg/actuation nasal spray (NARCAN) Use 1 spray in one nostril as needed for overdose. Mayrepeat every 2 to 3 min in alternating nostrils until medical assistance is available (Patient not taking: Reported on 06/04/2022) levothyroxine (SYNTHROID) 75 mcg tablet Take 1 tablet by mouth once daily. triamcinolone acetonide (KENALOG) 0.1 % ointment APPLY TO THE AFFECTED AREA TWICE A DAY FOR 5 DAYS traZODone (DESYREL) 50 mg tablet Take 100 mg by mouth daily at bedtime. Vitamin B Comp and C No.3 (B COMPLEX PLUS VITAMIN C) 18-91-00-5-300 mg cap Take 1 tablet by mouth once daily. Dexlansoprazole (DEXILANT) 30 mg CpDM Take 1 capsule by mouth once daily. Lactobac no.41/Bifidobact no.7 (PROBIOTIC-10 ORAL) Take by mouth. atenolol (TENORMIN) 50 mg tablet take 1 tablet by mouth twice a day CHOLECALCIFEROL, VITAMIN D3, (VITAMIN D3 ORAL) Take 1,000 Units by mouth once daily. acetaminophen (TYLENOL) 325 mg tablet Take 1-2 tablets by mouth every 4 hours as needed (not to exceed 2000 mg in a 24 hour period). Current Facility-Administered Medications Medication Dose Route Frequency perflutren lipid microspheres 1.3 mL in NaCl (PF) 0.9% 10 mL injection (DEFINITY) INTRAVENOUS DIRECTED PRN sodium chloride 0.9 % (flush) 10 mL (BD POSIFLUSH) 10 mL INTRAVENOUS DIRECTED PRN ALLERGIES Allergen Reactions Chlorhexidine Itching Severe skin irritation. Had used for central line care Sulfa (Sulfonamide * Rash PAST MEDICAL HISTORY Diagnosis Date ASCUS favor dysplasia 09/2014 for colpo Dyspareunia Fibroid 04/02/2017 Hodgkin lymphoma (HCC) 01/16/2012 stage IIIB, Nodular sclerosis classical Hodgkin lymphoma Menorrhagia 04/02/2017 PE (pulmonary embolism) Found incidentally on staging CT May 27, 2012 Pneumonitis 2013 Attributed to radiation and brentuximab vedotin Postmenopausal atrophic vaginitis Postmenopausal HRT (hormone replacement therapy) 08/2014 offered Premature menopause 01/2014 FSH 70 normal dxa Tachycardia on atenolol Vaginal high risk human papillomavirus (HPV) DNA test positive 09/28/2014 PAST SURGICAL HISTORY Procedure Laterality Date ENDOCERVICAL CURETTAGE 04/02/2017 HYSTEROSCOPY BX W/WO D&C 04/02/2017 with D&C PAST SURGICAL HISTORY OF 01/16/12 left [address] biopsy/ had 2012 stem cell tx has port removal VAGINOSCOPY 10/12/14 negative path VATS MEDIASTINAL LYMPHADENECTOMY 10/2012 left VATS FAMILY HISTORY Problem Relation Age of Onset Multiple Sclerosis Mother Coronary Artery Disease Maternal Grandfather [place] age 36 Coronary Artery Disease Paternal Grandfather 60's Multiple Sclerosis Maternal Grandmother Social History Tobacco Use Smoking status: Former Years: 10.00 Types: Cigarettes Quit date: 01/18/2012 Years since quittin.5 Smokeless tobacco: Never Vaping Use Vaping Use: Never used Substance Use Topics Alcohol use: Yes Alcohol/week: 0.0 standard drinks Comment: 2 drinks per month Drug use: No Immunization History Administered Date(s) Administered Comments Haemophilus influenzae b (Hib PRP-OMP) vaccine, 3-dose series (PEDVAX HIB) 10/14/2013 12/21/2013 03/11/2014 Haemophilus influenzae b-meningococcal bivalent (Dqk-CcaHP-GS) vaccine (MENHIBRIX) 10/14/2013 diphtheria tetanus (DT) vaccine, pediatric 12/21/2013 03/11/2014 hepatitis A-hepatitis B (HepA-HepB) vaccine (TWINRIX) 10/14/2013 12/21/2013 06/16/2014 hepatitis B (HepB) vaccine, 3-dose series, age 0 yr - 19 yr (ENGERIX B-PEDS, RECOMBIVAX HB-PEDS) 10/14/2007 11/11/2007 hepatitis B (HepB) vaccine, 3-dose series, age 20+ yr (ENGERIX-B, RECOMBIVAX HB) 03/04/2010 04/04/2010 09/01/2010 influenza (IIV4) vaccine, age 6 mo - 64 yr, quadrivalent, PF (AFLURIA, FLUARIX, FLULAVAL, FLUZONE) 12/21/2013 12/16/2014 meningococcal (MPSV4) vaccine, quadrivalent (MENOMUNE) 03/11/2014 pneumococcal (PCV13) vaccine, 13 valent (PREVNAR 13) 10/14/2013 12/21/2013 03/11/2014 06/16/2014 poliovirus (IPV) vaccine, inactivated (IPOL) 10/14/2013 12/21/2013 03/11/2014 tetanus diphtheria pertussis (Tdap) vaccine, age 7+ yr (ADACEL, BOOSTRIX) 10/14/2013 03/11/2014 tetanus toxoid (TT) vaccine 03/11/2014 VITALS: LMP 11/18/2012 PHYSICAL EXAMINATION: BP 115/80 (BP Site: Left Arm, BP Position: Sitting, BP Cuff Size: Large Adult) Pulse 100 Temp 36.1 C (97 F) (Temporal) Ht 180.3 cm (5' 11 ) LMP 11/18/2012 SpO2 95% BMI 32.39 kg/m Oxygen: Maintaining SpO2 on room air General: Well appearing, A&Ox3 in no acute distress HEENT: Normocephalic, atraumatic Lungs: Respirations unlabored, clear to auscultation bilaterally, no adventitious lung sounds. No wheezes, rales or rhonchi Heart: RRR, S1 S2 auscultated; no murmurs, rubs, or gallops Extremities: No clubbing, cyanosis, or edema Skin: Warm, clean, dry Neuro: Gait stable, grossly nonfocal Pscyh: Pleasant, appropriate DIAGNOSTICS & IMAGING: (Reviewed & updated by or 07/31/2022) PFTs 11/03/2019 IMPRESSION: Spirometry shows no obstruction.The reduced FVC suggests restriction. The TLC is reduced indicating restriction. The diffusing capacity is moderately reduced. The diffusing capacity independent of alveolar volume (kCO), is normal. Justin Moreno MD CXR 09/20/2021 IMPRESSION: No adverse interval change compared to prior studies. RESULT: Lines, tubes, and devices: None. Lungs and pleura: Stable changes of left-sided radiation fibrosis with no acute pulmonary parenchymal or pleural disease. Cardiomediastinal silhouette: Stable cardiomediastinal silhouette. BRADY BUCK MD 5 CT CHEST 07/17/2022 IMPRESSION: 1. More conspicuous mosaic attenuation in the bilateral lung rodriguez. 2. Mild reticular nodular opacities in the right middle lobe most likely infectious/inflammatory in etiology, stable. Consider follow-up to complete resolution. 3. Trace left pleural effusion, stable. 4. Subcentimeter nodular opacities in the left lung measuring up to 5 mm, stable 5. Postradiation changes in the bilateral lung rodriguez. RESULT: Limitations: Mild motion artifact. Lines, tubes, and devices: None. Lung parenchyma and airways: Bilateral perihilar consolidative opacities most likely related to postradiation change, stable. Mild mosaic attenuation in the bilateral lung rodriguez, more conspicuous. Mild reticulonodular opacities in the right middle lobe (6:96- 113) most likely infectious/inflammatory in etiology, stable. Multiple subcentimeter nodular opacities in the left lung (6:37, 43, 71, 80, 106, 110) measuring 5 mm, stable since 02/26/22. The central airways are patent. Pleural space: Trace left pleural effusion, stable. Lower neck, lymph nodes, and mediastinum: The imaged thyroid gland is normal. No lymphadenopathy in the supraclavicular, axillary, mediastinal, or hilar regions. Heart, pericardium, and thoracic vessels: The thoracic aorta is normal in caliber. Main pulmonary artery is borderline prominent measuring 3.0 cm in diameter. The cardiac chambers are normal in size. No coronary artery atherosclerotic calcifications are noted, although the study is not optimized for coronary assessment. No pericardial effusion or thickening. Bones and soft tissues: Sclerotic focus in the left coracoid process, most likely a bone island, stable. No new osseous abnormalities. Upper abdomen: Diffuse hepatic fatty infiltration. No evidence of adrenal mass.. Creative Services Designer (topogram) images: No additional findings. YOGESH DAVIS MD 07/18/22 05/29/19 ... NM PET/CT 02/26/2022 IMPRESSION: 1. NECK: * Unchanged mildly hypermetabolic level 2 lymph nodes, likely reactive. * No new FDG avid cervical lymphadenopathy. 2. CHEST: * No new FDG avid neoplastic process. * Stable left upper lobe radiation fibrosis. * Subcentimeter left upper lobe pulmonary nodule, below the resolution of PET. Recommend continued follow-up. 3. ABDOMEN/PELVIS: * Increased size and hypermetabolism of right upper mesenteric lymph node suspicious for neoplastic process. Lesion is not amenable to percutaneous biopsy, but may be accessible endoscopically. * No new FDG avid lymphadenopathy. 4. EXTREMITIES/SKELETON: * No suspicious FDG avid osseous lesion. Deauville score: 5 (upper mesenteric node) Score 1: No uptake above the background Score 2: Uptake less than or equal to mediastinum Score 3: Uptake greater than mediastinum but less than or equal to liver Score 4: Uptake moderately increased above liver Score 5: Uptake markedly increased above liver or new sited of disease Score X: New areas of uptake unlikely to be related to lymphoma RESULT: Creative Services Designer (topogram) images: No additional findings. - Mediastinum blood pool activity: Max SUV: 2.8 - Background liver activity: Max SUV: 3.3 HEAD AND NECK: Physiologic uptake seen in the visualized brain, extraocular muscles, parapharyngeal soft tissues, base of tongue, vocal cords, and salivary glands. Few mildly hypermetabolic level 2 nodes, for example a a subcentimeter left level 2A cervical lymph node with max SUV 2.4 (4:45), previously max SUV 2.6. Eyes are likely reactive. No new or enlarging FDG avid cervical lymphadenopathy or mass. No FDG avid thyroid lesion. CHEST: Physiologic uptake in the heart and mediastinum. Lungs and tracheobronchial tree: Redemonstration of multifocal patchy opacities and mosaic attenuation throughout both lungs, which can be seen with post treatment change or small airway/small vessel disease. Persistent left upper lobe nodular opacity with associated architectural distortion and mild bronchiectasis and max SUV 3.8 (4:80), previously max SUV of 4. This is likely sequela of post radiation/treatment change. Stable 5 mm nodule in the left upper lobe (4:114). Note that PET/CT is not sensitive for pulmonary nodules less than 8 mm. Pleura: No FDG avid pleural effusion or pleural mass. Mediastinum and Lymph nodes: No FDG avid mediastinal mass, mediastinal or hilar lymphadenopathy. Heart and great vessels: Physiologic uptake in the heart. Chest wall and axilla: No FDG avid axillary lymphadenopathy. ABDOMEN AND PELVIS: Physiologic uptake seen in the and GI tracts. Liver: No FDG avid lesion. Biliary: Gallbladder is unremarkable. Spleen: No FDG avid lesion. No splenomegaly. Pancreas: No FDG avid lesion. Adrenals: No FDG avid lesion. Kidneys: No stones, hydronephrosis, or FDG avid lesions. GI tract: Mild wispy FDG avidity along the mid appendix, similar to prior, without additional changes to suggest acute appendicitis. Otherwise, no dilation or focal suspicious FDG avid lesion. Lymph nodes: Again noted is a 1.2 x 1.3 cm right upper mesenteric lymph node with max SUV 8.9 (4:194), previously 1 x 0.8 cm with max SUV 3.9. No new FDG avid abdominal or pelvic lymphadenopathy. Mesentery/Peritoneum: No ascites or FDG avid mass. Vasculature: Vascular patency cannot be assessed due to lack of IV contrast. No aortic or iliac artery aneurysm. Pelvis: No ascites, fluid collection or FDG avid process. BONES AND EXTREMITIES: No suspicious FDG avid osseous lesion. The imaged portions of the skeleton demonstrates age-related degenerative changes. No destructive osseous lesions. JORDAN WOODARD MD ECHO 09/10/2014 FINDINGS: LEFT VENTRICLE The left ventricle is small. Left ventricular systolic function is normal. Baseline left ventricular diastolic function is consistent with abnormal relaxation (stage 1). Mitral annular lateral E/e': 10.5. Mitral annular septal E/e': 10.1. RIGHT VENTRICLE The right ventricle is normal in size. Right ventricular systolic function is normal. LEFT ATRIUM The left atrial cavity is normal in size. Pulmonary Veins: The peak pulmonary vein S/D ratio is 1.10. The peak pulmonary vein 'AR' wave is 55.4 cm/s. RIGHT ATRIUM The right atrial cavity is normal in size. Inferior Vena Cava: The inferior vena cava appears normal measuring 1.5 cm. MITRAL VALVE The mitral valve leaflets are structurally normal. There is trivial mitral valve regurgitation. The pressure half time is 67 msec. The peak mitral E/A ratio is 0.87. The average mitral E/e' ratio is 10.3. The mitral flow deceleration time is 230 msec. TRICUSPID VALVE The tricuspid valve leaflets are structurally normal. There is trivial tricuspid valve regurgitation. AORTIC VALVE The aortic valve cusps are structurally normal. There is no aortic valve regurgitation. Tricuspid aortic valve. The peak gradient is 7 mmHg (peak velocity = 132.0 cm/s). The LVOT diameter is 2.2 cm. PULMONIC VALVE The pulmonic valve cusps are structurally normal. There is no pulmonic valve regurgitation. The peak gradient is 3 mmHg. The mean gradient is 2 mmHg. The mean velocity in the pulmonic valve is 68.5 cm/s. AORTA The visualized aorta is normal in size. Measurements - Mid ascending aorta 2.6 cm. PULMONARY ARTERIES The pulmonary arteries are normal. INTERATRIAL SEPTUM The interatrial septum is normal. INTERVENTRICULAR SEPTUM The interventricular septum is normal. PERICARDIUM The pericardium is normal. CONCLUSIONS: - Exam indication: Shortness of Breath, Pericardial Effusion - The left ventricle is small. Left ventricular systolic function is normal. EF = 62 5% (2D biplane) - The right ventricle is normal in size. Right ventricular systolic function is normal. - There are no significant valvular abnormalities. - Stage I diastolic dysfunction - Mild concentric LVH at 11-12mm - Trivial pericardial effusion - Pericardial fat pad - Normal RV/RA size. RVSP could not be calculated as no significant TR - Prior echocardiogram performed on 05/11/14. This study is similar. Carlo Montero MD Most recent labs reviewed. Ella Chan APRN.CNP I spent a total of 30 minutes on the date of the service which included preparing to see the patient, [id number] patient care, completing clinical documentation, obtaining and/or reviewing separately obtained history, performing a medically appropriate examination, counseling and educating the pat ient/family/caregiver, and ordering medications, tests, or procedures. documented in this encounter[facility]06-13-2023 NoteHNO ID: [id number] Author: Nova Bridges APRN.CNP Service: ? Author Type: Nurse Practitioner Type: Progress Notes Filed: 07/31/2022 11:32 AM Note Text: SKIN EXAM ESTABLISHED LAST OFFICE VISIT: 12/07/2021 CC: This patient is a 42 year old female. Patient presents with: LESION, SKIN: HS left thigh HPI: Location: left thigh Appearance (size, shape, color): boil Duration: 2 weeks Symptoms (growing, itching, bleeding, tender): painful Treatments: Started short course of Doxy 100 BID until able to get in Was treatment effective: slight improvement -Personal history of skin cancer: No -History of blistering sunburns:Yes -Family history of skin cancer: No SOC: Social History Tobacco Use Smoking status: Former Years: Types: Cigarettes Quit date: 01/18/2012 Years since quittin. Smokeless tobacco: Never Vaping Use Vaping Use: Never used Substance Use Topics Alcohol use: Yes Alcohol/week: 0.0 standard drinks Comment: 2 drinks per month Drug use: No MEDS: Current outpatient prescriptions: Current Outpatient Medications on File Prior to Visit Medication Sig doxycycline monohydrate (MONODOX) 100 mg capsule Take 1 capsule by mouth twice daily. LORazepam (ATIVAN) 0.5 mg take 1 tablet by mouth twice a day if needed and take 1 TO 2 at bedtime if needed oxyCODONE IR (ROXICODONE) 10 mg tab Take 1 tablet by mouth every 4 hours as needed (moderate-severe cancer pain) for up to 30 days. ipratropium-albuterol (DUONEB) 0.5 mg-3 mg(2.5 mg base)/3 mL nebu Inhale 3 mL as instructed every 6 hours as needed for wheezing/shortness of breath. baclofen (LIORESAL) 5 mg tablet Take 1 tablet by mouth three times daily. INCRUSE ELLIPTA 62.5 mcg/actuation inhaler Inhale 1 Puff as instructed once daily. acyclovir (ZOVIRAX) 400 mg tablet take 1 tablet by mouth twice a day cyclobenzaprine (FLEXERIL) 10 mg tablet Take 1 tablet by mouth three times daily as needed for muscle spasm. prochlorperazine (COMPAZINE) 10 mg tablet Take 1 tablet by mouth every 6 hours as needed. gabapentin (NEURONTIN) 300 mg capsule Take 2 capsules by mouth three times daily for 180 days. tretinoin (RETIN-A) 0.05 % cream Apply a pea size amount to affected area every other night for 2 weeks then increase to daily as tolerated XARELTO 10 mg tablet take 1 tablet by mouth once daily albuterol HFA (VENTOLIN HFA) 90 mcg/actuation inhaler Inhale 2 Puffs as instructed every 4 hours as needed for wheezing/shortness of breath. fluocinonide (LIDEX) 0.05 % cream apply to affected area ON THE RIGHT HAND and legs TWICE A DAY naloxone 4 mg/actuation nasal spray (NARCAN) Use 1 spray in one nostril as needed for overdose. May repeat every 2 to 3 min in alternating nostrils until medical assistance is available (Patient not taking: Reported on 06/04/2022) levothyroxine (SYNTHROID) 75 mcg tablet Take 1 tablet by mouth once daily. triamcinolone acetonide (KENALOG) 0.1 % ointment APPLY TO THE AFFECTED AREA TWICE A DAY FOR 5 DAYS traZODone (DESYREL) 50 mg tablet Take 100 mg by mouth daily at bedtime. Vitamin B Comp and C No.3 (B COMPLEX PLUS VITAMIN C) 22-15-38-5-300 mg cap Take 1 tablet by mouth once daily. Dexlansoprazole (DEXILANT) 30 mg CpDM Take 1 capsule by mouth once daily. Lactobac no.41/Bifidobact no.7 (PROBIOTIC-10 ORAL) Take by mouth. atenolol (TENORMIN) 50 mg tablet take 1 tablet by mouth twice a day CHOLECALCIFEROL, VITAMIN D3, (VITAMIN D3 ORAL) Take 1,000 Units by mouth once daily. acetaminophen (TYLENOL) 325 mg tablet Take 1-2 tablets by mouth every 4 hours as needed (not to exceed 2000 mg in a 24 hour period). Current Facility-Administered Medications on File Prior to Visit Medication perflutren lipid microspheres 1.3 mL in NaCl (PF) 0.9% 10 mL injection (DEFINITY) sodium chloride 0.9 % (flush) 10 mL (BD POSIFLUSH) ALLERGY: ALLERGIES Allergen Reactions Chlorhexidine Itching Severe skin irritation. Had used for central line care Sulfa (Sulfonamide * Rash REVIEW OF SYSTEMS: Patient feels well and denies any recent fevers, chills, or nightsweats. PHYSICAL EXAM: The patient is a pleasant female in no distress. Patient appears healthy, well developed, well nourished and in otherwise good health. Alert and oriented x 3. A skin exam was done of the left thigh Smith Skin Type: I IMPRESSION: Left medial thigh with erythematous nodule A/P: (L73.2) Hidradenitis suppurativa (primary encounter diagnosis) (R20.8) Skin pain -chronic destructive inflammatory disorder -seen most commonly on the buttocks, breasts, groin and axillae -associated with obesity and cigarette smoking -Talbert staging system -stage I: abscess without sinus tract/scarring -stage II: recurrent abscess with sinus tract/scarring and widely spread -stage III: multiple interconnected sinus tracts/abscesses with diffuse involvement of affected areas Treatment: -weight loss and smoking (more content not included)...[facility] [facility]06-01-2023 NoteHNO ID: [id number] Author: Juan Francisco Hutchinson APRN.CLINICAL TRIAL DATA MANAGER Service: ? Author Type: Nurse Practitioner Type: Progress Notes Filed: 07/19/2022 11:18 AM Note Text: PALLIATIVE MEDICINE PROGRESS NOTE SERVICE DATE: 07/19/2022 Primary Site of Disease/Medical Illness: Hodgkin Lymphoma Site of Metastasis: Liver, Lymph nodes, Spleen CHIEF COMPLAINT: pain follow up PERTINENT MEDICAL HISTORY: Celso Potts is a 42 yo female with Hodgkin's Lymphoma diagnosed 01/16/2012 s/p autologous SCT (2013) and several other treatments due to recurrences in that time. She has undergone palliative radiation to spleen, liver, and lymph nodes (April 2020) per Dr. Del Valle, then to right mesenteric LN (March 2022). She is currently treated with Keytruda per Dr. Abimael Ramires. Course has been c/b pulmonary embolus (on AC), PJP pneumonia, herpes zoster. Palliative care is following for symptom control needs. Subjective Last pall care visit 04/23/[address] chest on 07/17 shows she developed more conspicuous mosaic attenuation in bilateral lung rodriguez, reticular nodular opacities in RML (stable), subcentimeter nodular opacities in the left lung (stable), postradiation change to bilateral lung rodriguez. Finished steroids and antibiotics. [place] very good after this but then as time went on cough came back. Awaiting pulmonary f/u. 08/01 Immunotherapy on hold. Will also have PET/CT Presents today alone. Reports feeling at her baseline. Cough and JOE - using mucinex - has production with some yellow and green phelgm. Says she has allergies currently to with PND. Taking benadryl PRN. 24 options make her too dry. Has had new swelling later in the day in BLE. Has been a lot busier and driving a lot more. Took steroids about 6 weeks ago. No other changes in medications. No increase in weight recently. Generalized joint and abd pain is unchanged and remains well controlled on current regimen allowing her to function in daily life and remain very active. A product of her activity continues to be increased muscle cramping in her extremities. She continues to do a good job hydrating. Last labs were check in April as she has not had any treatment recently. She continues to find relief with muscle relaxants. Denies confusion, oversedation, myoclonus. Modified ESAS (Davenport Symptom Assessment Scale) Information Provided By: Patient Pain: Moderate - worsening muscle cramps since being more active. Nausea: None Loss of Appetite: None Constipation: None Shortness of Breath: Moderate on exertion only Drowsiness: None Tiredness: Moderate - no day time sleeping Depression: None Anxiety: None How you feel overall: Good Objective ECOG PERFORMANCE STATUS: 0- Fully active, able to carry on all pre-disease performance w/o restriction. PHYSICAL EXAMINATION: Vital signs: BP 124/84 Pulse 104 Wt 105.3 kg (232 lb 3.2 oz) LMP 11/18/2012 SpO2 94% BMI 31.49 kg/m? Last 1 Encounter Temp Readings: Date: Temp: Temp Src: 07/18/2022 36.8 ?C (98.2 ?F) Oral Last 1 Encounter Resp Readings: Date: Resp: 07/18/2022 18 Last 1 Encounter Pulse Readings: Date: Pulse: 07/18/2022 103 Last 1 Encounter BP Readings: Date: BP: 07/18/2022 124/86 General Appearance: No apparent distress and well nourished, well appearing. Skin: No jaundice and No rash Lungs: unlabored effort, no conversational dyspnea. CV: no edema at present time. Abdomen: no distension Neuro: Alert and oriented to time place and person and gait normal, no myoclonus Psych: Well groomed, Affect congruent with mood, and Good eye contact DATA: Diagnostic tests reviewed for today's visit: Most recent labs and imaging results. Estimated Creatinine Clearance: 145.7 mL/min (based on SCr of 0.7 mg/dL). Opioid Management: Yes Indication for Opioid Prescribing: Cancer related pain ORT-OUD Score: 2 A score of 3 or higher may indicate a higher risk for future development of aberrant drug related behavior or opioid use disorder. Informed consent for chronic opiate therapy obtained and written pain agreement: On file Naloxone offered?: Previously prescribed Course of treatment, patient's response and adherence to the prescribed treatment plan reviewed, including non-pharmacological and non-opioid treatment modalities? Yes Have any complications or exacerbations of the underlying condition causing the pain been reviewed? Yes How much does pain impede patient?s ability to engage in work or other purposeful activities, interfere with your activities of daily living, physical activity, or quality of your family life and social activities? Significantly Aberrancies in pain panel? No Any aberrant drug related behaviors since last visit? No Rationale for continuing opioid treatment: Improved comfort and function based on an ongoing functional assessment Benefits of Opioid Therapy outweigh risks: Yes Prescribed Morphine Eq (more content not included)...[facility] 07-19-2022 History of Present illness Narrative* Juan Francisco Hutchinson APRN.CLINICAL TRIAL DATA MANAGER - 07/19/2022 8:15 AM EDT PALLIATIVE MEDICINE PROGRESS NOTE SERVICE DATE: 07/19/2022 Primary Site of Disease/Medical Illness: Hodgkin Lymphoma Site of Metastasis: Liver, Lymph nodes, Spleen CHIEF COMPLAINT: pain follow up PERTINENT MEDICAL HISTORY: Celso Potts is a 42 yo female with Hodgkin's Lymphoma diagnosed 01/16/2012 s/p autologous SCT (2013) and several other treatments due to recurrences in that time. She hasundergone palliative radiation to spleen, liver, and lymph nodes (April 2020) per Dr. Del Valle, thento right mesenteric LN (March 2022). She is currently treated with Keytruda per Dr. Abimael Ramires. Course has been c/b pulmonary embolus (on AC), PJP pneumonia, herpes zoster. Palliative care is following for symptom control needs. Subjective Last pall care visit 04/23/[address] chest on 07/17 shows she developed more conspicuous mosaic attenuation in bilateral lung rodriguez, reticular nodular opacities in RML (stable), subcentimeter nodular opacities in the left lung (stable), postradiation change to bilateral lung rodriguez. Finished steroids and antibiotics. [place] very good after this but then as time went on cough came back. Awaiting pulmonary f/u. 08/01 Immunotherapy on hold. Will also have PET/CT Presents today alone. Reports feeling at her baseline. Cough and JOE - using mucinex - has production with some yellow and green phelgm. Says she has allergies currently to with PND. Taking benadryl PRN. 24 options make her too dry. Has had new swelling later in the day in BLE. Has been a lot busier and driving a lot more. Took steroids about 6 weeks ago. No other changes in medications. No increase in weight recently. Generalized joint and abd pain is unchanged and remains well controlled on current regimen allowingher to function in daily life and remain very active. A product of her activity continues to be increased muscle cramping in her extremities. She continues to do a good job hydrating. Last labs were check in April as she has not had any treatment recently. She continues to find relief with muscle relaxants. Denies confusion, oversedation, myoclonus. Modified ESAS (Davenport Symptom Assessment Scale) Information Provided By: Patient Pain: Moderate - worsening muscle cramps since being more active. Nausea: None Loss of Appetite: None Constipation: None Shortness of Breath: Moderate on exertion only Drowsiness: None Tiredness: Moderate - no day time sleeping Depression: None Anxiety: None How you feel overall: Good Objective ECOG PERFORMANCE STATUS: 0- Fully active, able to carry on all pre-disease performance w/o restriction. PHYSICAL EXAMINATION: Vital signs: BP 124/84 Pulse 104 Wt 105.3 kg (232 lb 3.2 oz) LMP 11/18/2012 SpO2 94% BMI 31.49 kg/m Last 1 Encounter Temp Readings: Date: Temp: Temp Src: 07/18/2022 36.8 C (98.2 F) Oral Last 1 Encounter Resp Readings: Date: Resp: 07/18/2022 18 Last 1 Encounter Pulse Readings: Date: Pulse: 07/18/2022 103 Last 1 Encounter BP Readings: Date: BP: 07/18/2022 124/86 General Appearance: No apparent distress and well nourished, well appearing. Skin: No jaundice and No rash Lungs: unlabored effort, no conversational dyspnea. CV: no edema at present time. Abdomen: no distension Neuro: Alert and oriented to time place and person and gait normal, no myoclonus Psych: Well groomed, Affect congruent with mood, and Good eye contact DATA: Diagnostic tests reviewed for today's visit: Most recent labs and imaging results. Estimated Creatinine Clearance: 145.7 mL/min (based on SCr of 0.7 mg/dL). Opioid Management: Yes Indication for Opioid Prescribing: Cancer related pain ORT-OUD Score: 2 A score of 3 or higher may indicate a higher risk for future development of aberrant drug related behavior or opioid use disorder. Informed consent for chronic opiate therapy obtained and written pain agreement: On file Naloxone offered?: Previously prescribed Course of treatment, patient's response and adherence to the prescribed treatment plan reviewed, including non-pharmacological and non-opioid treatment modalities? Yes Have any complications or exacerbations of the underlying condition causing the pain been reviewed?Yes How much does pain impede patient s ability to engage in work or other purposeful activities, interfere with your activities of daily living, physical activity, or quality of your family life and social activities? Significantly Aberrancies in pain panel? No Any aberrant drug related behaviors since last visit? No Rationale for continuing opioid treatment: Improved comfort and function based on an ongoing functional assessment Benefits of Opioid Therapy outweigh risks: Yes Prescribed Morphine Equivalent Daily Dose (MEDD): Yes > 50 MEDD Yes, I am certified in Hospice and Palliative Care, Hematology, Medical Oncology or Pain Medicine OARRS Checked: PDMP website checked and validated. All prescriptions have been APPROPRIATELY filled. No suspiciousactivity was identified. 07/19/2022 by Juan Francisco Hutchinson APRN.CLINICAL TRIAL DATA MANAGER Urine Screen Lab Results Component Value Date UAMPH Negative 02/24/2021 UBARB2 Negative 02/24/2021 UBENZ Negative 02/24/2021 UQBUPRE <20 01/25/2022 UQNORBUP <20 01/25/2022 UCOC2 Negative 02/24/2021 UQCANN <16 01/25/2022 UOPI Negative 02/24/2021 UOXYC Negative 02/24/2021 UPCP Negative 02/24/2021 UTHC Negative 02/24/2021 UETOH <11 02/24/2021 Urine Panel: Lab Results Component Value Date Cannabinoid Quant, Urine <16 01/25/2022 Cannabinoid Quant, Urine <16 02/24/2021 Benzoylecognine Quant, Urine <24 02/24/2021 Benzoylecgonine Quant, Urine <24 01/25/2022 6-Acetylmorphine Quant, Urine <5 01/25/2022 6-Acetylmorphine Quant, Urine <5 02/24/2021 Amphetamine Quant, Urine <5 01/25/2022 Amphetamine Quant, Urine <5 02/24/2021 Methamphetamine Quant, Urine <8 01/25/2022 Methamphetamine Quant, Urine <8 02/24/2021 Buprenorphine Quant, Urine <20 01/25/2022 Buprenorphine Quant, Urine <20 02/24/2021 Norbuprenorphine Quant, Urine <20 01/25/2022 Norbuprenorphine Quant, Urine <20 02/24/2021 Methadone Quant, Urine <16 01/25/2022 Methadone Quant, Urine <16 02/24/2021 EDDP Quant, Urine <6 01/25/2022 EDDP Quant, Urine <6 02/24/2021 Tramadol Quant, Urine <25 01/25/2022 Tramadol Quant, Urine <25 02/24/2021 Desmethyltramadol Quant, Urine <20 01/25/2022 Desmethyltramadol Quant, Urine <20 02/24/2021 Fentanyl Quant, Urine <6 01/25/2022 Fentanyl Quant, Urine <6 02/24/2021 Norfentanyl Quant, Urine <6 01/25/2022 Norfentanyl Quant, Urine <6 02/24/2021 Codeine Quant, Urine <11 01/25/2022 Codeine Quant, Urine <11 02/24/2021 Morphine Quant, Urine <10 01/25/2022 Morphine Quant, Urine <10 02/24/2021 Dihydrocodeine Quant, Urine <5 01/25/2022 Dihydrocodeine Quant, Urine <5 02/24/2021 Hydrocodone Quant, Urine <8 01/25/2022 Hydrocodone Quant, Urine <8 02/24/2021 Oxycodone Quant, Urine 2,574 (H) 01/25/2022 Oxycodone Quant, Urine <10 02/24/2021 Hydromorphone Quant, Urine <5 01/25/2022 Hydromorphone Quant, Urine <5 02/24/2021 Oxymorphone Quant, Urine 2,296 (H) 01/25/2022 Oxymorphone Quant, Urine <5 02/24/2021 Creatinine,Ur Pain Ocasio 70.2 02/24/2021 Urine pH, Pain Ocasio 6.3 02/24/2021 Specific [place],Ur Pain Ocasio 1.012 02/24/2021 Oxidants,Ur 46 02/24/2021 Specimen Quality, Ur Pain Ocasio Specimen quality results within acceptable limits. 05/03/2014 Assessment & Plan (Z51.5) Encounter for palliative care (primary encounter diagnosis) - reviewed role of palliative care, contact info, and reasons to call. 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 Ramires (G89.3) Cancer related pain - nociceptive somatic pain associated to prior radiation effects c/b joint pain associated to psoriatic arthritis - exacerbated by immunotherapy - managed well presently - suggest routine use of APAP 1000 mg TID - continue gabapentin 600 mg TID (reporting intermittent BLE swelling, monitor for now. Could be side effect of gabapentin) - continue oxycodone 10 mg Q4H PRN (counseled on use of benzo and opioids together and increased risk of respiratory depression; narcan previously prescribed) - consider addition of duloxetine if worsening - suggest rheumatology involvement (R25.2) Muscle cramps - much improved and well controlled - continue baclofen 10 mg TID - continue cyclobenzaprine 10 mg TID PRN (F41.9) Anxiety - long standing problem - increases when scans are due - previously reports hydroxyzine was ineffective - current medications managed per oncology ativan - highly encouraged establishing with counselor - she currently does not want to do this due to number of appointments. - would advise addition of SSRI or SNRI (Cymbalta) if persisting. Patient declines Some elements copied from my note on 04/23/22, the elements have been updated and all reflect currentdecision making from today, 07/19/2022. Medical Decision Making: Problems: Moderate: 2+ stable chronic illnesses Risk: High: Drug therapy requiring intensive monitoring Medical Decision Making Level: 4 - Moderate Next Visit: 3 Months in person Juan Francisco Hutchinson APRN.PEDRO July 19, 2022 8:15 AM This note may have been partially generated using the [employer] voice recognition system. While every effort was made to correct voice recognition errors, kindly be aware that some errors may occasionally occur. documented in this encounterOhio[facility]-31-[facility] NoteHNO ID: [id number] Author: Cyn Ramires MD Service: ? 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 (age at diagnosis 31YOF, ESR normal, WBC, Hgb, Lymph and alb normal) Previous Treatment: ABVD started on 02/11/2012 x 12 doses progressed to month after stopping treatment ICE x3 progressed after stopping treatment 3 cycles of Brentuximab Vedotin (Adcetris) followed by Auto BMT high-dose busulfan, etoposide, and cyclophosphamide with autologous hematopoietic progenitor cell transplantation in 02/2013 45 Gy in 25 fx was delivered to the mediastinal/hilar/left SC faustina regions using 6 MV photons from 07/27/2013 ? 08/31/2013. Brentuximab Vedotin (Adcetris) Started 02/04/2014 stopped 2nd to neuropathy Nivolumab (Opdivo) started Nov 18 2014 stopped 2019 Ibrutinib started early 2019. Ordered April 22, 2019 stopped oct AREA TREATED: right mesenteric LN COURSE: definitive CURRENT DOSE: 2400 cGy in 03 fx PLANNED DOSE: 2400 cGy in 03 fx Current Treatment: Pembrolizumab 200 mg every 3 weeks started on November 09, 2019 Palliative radiation to be done end of March 2020 secondary to mild progression and continue pembrolizumab after HPI: This is a 40 year old female with no significant PMH presented in August [address] in the neck and left axillary area. She was treated with multiple courses of IV antibiotics without improvement. + B symptoms (fever, drenching night sweats but no wt. loss) and itching rash in the lower exts. Left Axillary LN excisional biopsy: Nodular sclerosis classical Hodgkin lymphoma Feb [address]: IMPRESSION: FINDINGS COMPATIBLE WITH MILD RIGHT CERVICAL AND LEFT ANTERIOR SUBDIAPHRAGMATIC ADENOPATHY, MODERATE TO SEVERE HYPERMETABOLIC BILATERAL AXILLARY AND SUPRACLAVICULAR (LEFT GREATER THAN RIGHT), SUPERIOR MEDIASTINAL, RIGHT PARATRACHEAL, AND ANTERIOR MEDIASTINAL ADENOPATHY. FINDINGS SUSPICIOUS OF HYPERMETABOLIC SPLENIC LYMPHOMATOUS INVOLVEMENT. Bone Marrow Bx was negative incidental finding of pulmonary embolism on CT chest. Patient was started on Lovenox on May 27, 2012 Relapsed S/P 3 cycles of ICE with progression, S/P Brentuximab Vedotin (Adcetris) and Auto BMT Radiation to the chest complicated with Radiation pneumonitis Brentuximab Vedotin (Adcetris) stopped 2nd to grade III pneumonitis She saw Dr. Alejandro sarmiento at [facility] for 2nd opinion cell([phone]) She agreed with out plan and recommended repeat of her PET and if progressed either Opdivo vs clinical trial March 02, 2018 CT chest abdomen and pelvis mild progression of the lymph nodes in the abdomen and pelvis. PET scan was recommended Early 2018 patient was diagnosed with psoriasis (multiple 1-2 cm spots on her extremities). Patient stated rash started when we changed to every 4 weeks dosing. We'll resume every 2 weeks dosing and psoriasis is better to stable 03/13/2019 PET scan showed progression IMPRESSION: 1. NECK: * No FDG avid neoplastic process. 2. CHEST:* No FDG avid neoplastic process. 3. ABDOMEN/PELVIS:* Interval progression of retroperitoneal faustina metastatic disease with increase in size and FDG avidity of nodes/conglomerate masses in the upper abdomen since 03/08/2017. * Development of new FDG avid hepatic metastases in segments II and IVb. * FDG avid splenic lesion has increased in size and relative FDG avidity since the prior exam. 4. EXTREMITIES/SKELETON: No suspicious FDG avid osseous lesion. Deauville score: 5 Ibrutinib was orderef on 04/22/2019 PET scan October 2019 showed disease progression. Ibrutinib was stopped. Pembrolizumab was started in October 2019 PET scan March 2020 mild disease progression Palliative radiation was recommended April 2020 Palliative radiation to the spleen, liver and lymph node at main campus PET showed progression early 2022March 2019 AREA TREATED: right mesenteric LN COURSE: definitive CURRENT DOSE: 2400 cGy in 03 fx PLANNED DOSE: 2400 cGy in 03 fx Interval history: Patient is here for follow-up for above diagnoses. Been off treatment for possible respiratory symptoms. She was seen by pulmonary started on antibiotic and prednisone improved but she still have cough. She is seeing pulmonary soon PAST MEDICAL HISTORY: History of tachycardia treated with atenolol, pulmonary embolism incidentally found on restaging CT (May 27, 2012). 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 (age at diagnosis 31YOF, ESR normal, WBC, Hgb, Lymph and alb normal) Previous Treatment: ABVD started on 02/11/2012 x 12 doses progressed to month after stopping treatment ICE x3 progressed after stopping treatment 3 cycles of Brentuximab Vedotin (Adcetris) followed by Auto BMT high-dose busulfan, etoposide, and cyclophosphamide with autologous hematopoietic progenitor cell transplantation in 02/2013 45 Gy in 25 fx was delivered to the mediastinal/hilar/left SC faustina regions using 6 MV photons from07/27/2013 ? 08/31/2013. Brentuximab Vedotin (Adcetris) Started 02/04/2014 stopped Nivolumab (Opdivo) started Nov 18 2014 stopped 2019 Ibrutinib started early 2019. Ordered April 22, 2019 stopped oct AREA TREATED: right mesenteric LN COURSE: definitive CURRENT DOSE: 2400 cGy in 03 fx PLANNED DOSE: 2400 cGy in 03 fx Current Treatment: Pembrolizumab 200 mg every 3 weeks started on November 09, 2019 Palliative radiation to be done end of March 2020 secondary to mild progression and continue pembrolizumab after HPI: This is a 40 year old female with no significant PMH presented in August [address] in the neck and left axillary area. She was treated with multiple courses of IV antibiotics without improvement. + B symptoms (fever, drenching night sweats but no wt. loss) and itching rash in the lower exts. Left Axillary LN excisional biopsy: Nodular sclerosis classical Hodgkin lymphoma Feb [address]: IMPRESSION: FINDINGS COMPATIBLE WITH MILD RIGHT CERVICAL AND LEFT ANTERIOR SUBDIAPHRAGMATIC ADENOPATHY, MODERATE TO SEVERE HYPERMETABOLIC BILATERAL AXILLARY AND SUPRACLAVICULAR (LEFT GREATER THAN RIGHT), SUPERIOR MEDIASTINAL, RIGHT PARATRACHEAL, AND ANTERIOR MEDIASTINAL ADENOPATHY. FINDINGS SUSPICIOUS OF HYPERMETABOLIC SPLENIC LYMPHOMATOUS INVOLVEMENT. Bone Marrow Bx was negative incidental finding of pulmonary embolism on CT chest. Patient was started on Lovenox on May 27, 2012 Relapsed S/P 3 cycles of ICE with progression, S/P Brentuximab Vedotin (Adcetris) and Auto BMT Radiation to the chest complicated with Radiation pneumonitis Brentuximab Vedotin (Adcetris) stopped 2nd to grade III pneumonitis She saw Dr. Alejandro sarmiento at [facility] for 2nd opinion cell([phone]) She agreed with out plan and recommended repeat of her PET and if progressed either Opdivo vs clinical trial March 02, 2018 CT chest abdomen and pelvis mild progression of the lymph nodes in the abdomen andpelvis. PET scan was recommended Early 2018 patient was diagnosed with psoriasis (multiple 1-2 cm spots on her extremities). Patientstated rash started when we changed to every 4 weeks dosing. We'll resume every 2 weeks dosing and psoriasis is better to stable 03/13/2019 PET scan showed progression IMPRESSION: 1. NECK: * No FDG avid neoplastic process. 2. CHEST:* No FDG avid neoplastic process. 3. ABDOMEN/PELVIS:* Interval progression of retroperitoneal faustina metastatic disease with increase in size and FDG avidity of nodes/conglomerate masses in the upper abdomen since 03/08/2017. * Development of new FDG avid hepatic metastases in segments II and IVb. * FDG avid splenic lesion has increased in size and relative FDG avidity since the prior exam. 4. EXTREMITIES/SKELETON: No suspicious FDG avid osseous lesion. Deauville score: 5 Ibrutinib was orderef on 04/22/2019 PET scan October 2019 showed disease progression. Ibrutinib was stopped. Pembrolizumab was started in October 2019 PET scan March 2020 mild disease progression Palliative radiation was recommended April 2020 Palliative radiation to the spleen, liver and lymph node at main campus PET showed progression early 2022March 2019 AREA TREATED: right mesenteric LN COURSE: definitive CURRENT DOSE: 2400 cGy in 03 fx PLANNED DOSE: 2400 cGy in 03 fx Interval history: Patient is here for follow-up for above diagnoses. Been off treatment for possible respiratory symptoms. She was seen by pulmonary started on antibiotic and prednisone improved but she still have cough. She is seeing pulmonary soon PAST MEDICAL HISTORY: History of tachycardia treated with atenolol, pulmonary embolism incidentallyfound on restaging CT (May 27, 2012). 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 PHYSICAL EXAM: BP 124/86 Pulse 103 Temp 36.8 C (98.2 F) (Oral) Resp 18 Ht 182.9 cm (6') Wt 106.4 kg (234 lb 9.6 oz) LMP 11/18/2012 SpO2 96% BMI 31.82 kg/m General: NAD, ECOG PS:1 No paleness or jaundice lymph system: No lymphadenopathy in the neck. SC or axillary area BL. Heart: S1, S2, RRR Lung: CTA (BL), no wheezing or crackles Abd: No tenderness, or distension. Soft Extremities: No pitting edema, or cyanosis DATA CBC, CMP, TSH were reviewed in [facility]. PET scan report and images were reviewed in [facility]. Results werediscussed with patient and radiation oncology ASSESSMENT AND PLAN: 1. 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 Complete PET CR after 4 doses of ABVD (2 cycles). Finished 12 doses of ABVD and progressed soon after finishing treatment, 3 cycles of salvage ICE relapsed after finishing treatment before bone marrow transplant. S/P Brentuximab Vedotin (Adcetris) followed by Auto BMT. Relapsed in June 2013. chest radiation. Relapsed on January 20, 2014. Declined Allo SCT Dr. Del Valle did palliative radiation to the spleen, liver and lymph nodes Another course of radiation March [address] chest abnormal awaiting pulmonary follow-up in 2 weeks Continue to have cough. I will continue holding treatment until cleared by pulmonary. We will obtain PET scan prior to her next visit in 4 weeks. Once cleared by pulmonary we will continue with palliative pembrolizumab 200 mg every 3 weeks We will continue to monitor toxicity with CMP, TSH 2. History Pulmonary embolism: recurrence after being off AC since she had her Auto transplant. Currently on xeralto and tolerating it well we will continue 3. Neuropathy: Stable continue Neurontin. 600 mg TID currently not affecting her function 4. Depression on Remeron 30 mg stable 5. History Herpes zoster continue with prophylactic dose of Acyclovir 400 mg twice daily 6. Hx PJP pneumonia: Allergic to Bactrim. Was treated with Primaquine and clindamycin follow up with Dr. Sigala ID was On dapsone for prophylaxis. stopped CD 4 continued to be above 200 8. History muscle cramps better with 2 muscle relaxant 9. Psoriasis noted diagnosis unclear if related to Nivolumab will go back to every 2 weeks regimen 10. Cancer pain continue oxycodone 5 mg 3 times daily Consult palliative medicine 11. Slightly elevated AST and ALT we will continue to monitor with CMP prior to each treatment Patient verbalized understanding and agreed with above plan Documentation from my notes of previous visit on 07/16/2022 was copied and pasted, documentation has been reviewed and edited as necessary and is current for today 07/18/2022 Cyn Ramires MD, FACP CC: Jose Parra documented in this encounterOhiohealth [facility]05-31-2023 Instructions* Patient Instructions* Gunjan Joya LPN - 07/18/2022 11:26 AM EDT Follow up with Dr. Ramires 08/14 at 9:50a PET scan a few days prior documented in this encounterOhiohealth Southeastern Medical Center05-30-2023 NoteHNO ID: [id number] Author: RT Jabier(R) Service: ? Author Type: Technologist Type: Progress Notes Filed: 07/17/2022 1:24 PM Note Text: Radiology Service Progress Note PATIENT NAME: Celso Potts DATE OF SERVICE: July 17, 2022 TIME: 1:24 PM PATIENT IDENTITY VERIFICATION COMPLETED USING TWO (2) IDENTIFIERS: Name and Date of confirmed by patient verbally. FALL SCREENING: Has the patient had 2 falls in the last year or 1 fall with injury or currently using an Ambulatory Assistive Device (Walker, Cane, Wheelchair, Crutches, etc.)? No PATIENT GENDER DATA: Female. status: : No status: NO. PATIENT RELEVANT IMPLANT DATA REVIEWED: Not Applicable RADIOLOGY DEPARTMENT: CT; Exam(s) Completed: Chest PERIPHERAL IV DATA: Not applicable SIGNED BY: RT Jabier(R) July 17, 2022 1:24 [facility]05-30-2023 History of Present illness Narrative* RT Jabier(R) - 07/17/2022 1:24 PM EDT Radiology Service Progress Note PATIENT NAME: Celso Potts DATE OF SERVICE: July 17, 2022 TIME: 1:24 PM PATIENT IDENTITY VERIFICATION COMPLETED USING TWO (2) IDENTIFIERS: Name and Date of confirmedby patient verbally. FALL SCREENING: Has the patient had 2 falls in the last year or 1 fall with injury or currently using an Ambulatory Assistive Device (Walker, Cane, Wheelchair, Crutches, etc.)? No PATIENT GENDER DATA: Female. status: : No status: NO. PATIENT RELEVANT IMPLANT DATA REVIEWED: Not Applicable RADIOLOGY DEPARTMENT: CT; Exam(s) Completed: Chest PERIPHERAL IV DATA: Not applicable SIGNED BY: RT Jabier(R) July 17, 2022 1:24 PM documented in this encounterOhiohealth Southeastern Medical Center05-30-2023 Miscellaneous Notes* Telephone Encounter - Juan Francisco Hutchinson APRN.CNP - 07/17/2022 11:55 AM EDT PDMP website checked and validated. All prescriptions have been APPROPRIATELY filled. No suspiciousactivity was identified. 07/17/2022 by Juan Francisco Hutchinson APRN.CNP Rx sent Juan Francisco Hutchinson APRN.CNP * Telephone Encounter - Kylie Mosher RN - 07/17/2022 10:23 AM EDT Patient phones requesting refills as follows: Next PM appt 07/19/2022 Last ordered 06/14/2022 Requested Prescriptions Pending Prescriptions Disp Refills oxyCODONE IR (ROXICODONE) 10 mg tab 120 tablet 0 Sig: Take 1 tablet by mouth every 4 hours as needed (moderate-severe cancer pain) for up to 30 days. Please review and advise. Kylie Mosher RN documented in this encounterOhiohealth Southeastern Medical Center04-28-2023 Miscellaneous Notes* Telephone Encounter - Ella Chan APRN.CNP - 06/15/2022 4:02 PM EDT Prescription for duonebs sent to pharmacy. Called patient and updated her. Also let her know she should discontinue her albuterol nebulizer once she starts her duonebs. * Telephone Encounter - Mitzi Hutchinson MA - 06/13/2022 1:30 PM EDT Called pharmacy [facility] to verify they have medication in stock and I spoke with pharmacy clinical coordinator Savannah who states they have 1 box in stock. Please advise. * Telephone Encounter - HILARY Dougherty - 06/13/2022 1:16 PM EDT Celso Potts called today. : 1980 Allergies: Chlorhexidine and Sulfa (Sulfonamide Antibiotics) (home) [phone] (cell) Reason for call: Patient states that at the last office visit 06/04/22 the provider was going to call in DUONEB. She states it was not called in . Please advise. e- [id number] [place] [id number] - [address] [facility] - [phone] [place] [id number] Patient last appointment: 06/04/2022 The patients preferred pharmacy has been captured for this encounter? yes HILARY Dougherty documented in this encounterOhiohealth Southeastern Medical Center04-25-2023 NoteHNO ID: [id number] Author: Cyn Ramires MD Service: ? Author Type: Physician Type: Progress Notes Filed: 06/12/2022 11:37 AM Note Text: [facility] VISIT This visit is a Virtual MyChart video visit encounter which required patient-provider interaction for the medical decision making as documented below. Persons Present: patient I have communicated my name and active licensure. The patient?s identity and physical location were verified at the time of this visit. Celso Potts or their legal wireless sales representative has been informed of the risks and benefits of -- and alternatives to -- treatment through a remote evaluation and consents to proceed with the evaluation remotely. Total Time Spent: 5-10 minutes on this telephone encounter HISTORY REVIEWED (electronic chart updated): - medical history - medications - allergies Interval history: Patient tried to log into MyChart video visit virtual visit. Was not able to I called her on her cell phone She is doing much better. She was seen by pulmonary for cough and mild shortness of breath. She was started on antibiotics and received 5 days of prednisone 20 mg daily Otherwise denies any other complaints and no change of her other symptoms Data Reviewed: Most recent labs and imaging results. Most recent labs REVIEW OF SYSTEMS: VIDEO PHYSICAL EXAMINATION: (if done, performed via video enabled technology) No exam performed ASSESSMENT: 1. Recurrent Hodgkin lymphoma heavily pretreated Currently on pembrolizumab 2. Cough and shortness of breath most likely bronchitis I doubt pneumonitis. Patient had radiation to the chest few years ago as part of her Hodgkin lymphoma treatment PLAN: Repeat CT chest in 3 weeks if her symptoms improve we will restage her with PET scan and may consider resuming [facility]25[facility]23 Miscellaneous Notes* Telephone Encounter - Juan Francisco Hutchinson APRN.CNP - 06/12/2022 12:06 PM EDT PDMP website checked and validated. All prescriptions have been APPROPRIATELY filled. No suspiciousactivity was identified. 06/12/2022 by Juan Francisco Hutchinson APRN.CNP Rx sent Juan Francisco Hutchinson APRN.CNP * Telephone Encounter - Kylie Mosher RN - 06/12/2022 8:10 AM EDT Patient requesting refills as follows: Next PM f/u 07/19/2022 Last ordered 04/16/2022 baclofen Last ordered 05/14/2022 oxy IR Requested Prescriptions Pending Prescriptions Disp Refills baclofen (LIORESAL) 5 mg tablet 90 tablet 2 Sig: Take 1 tablet by mouth three times daily. oxyCODONE IR (ROXICODONE) 10 mg tab 120 tablet 0 Sig: Take 1 tablet by mouth every 4 hours as needed (moderate-severe cancer pain) for up to 30 days. Please review and advise. Kylie Mosher RN documented in this encounterOhiohealth [facility]heastern Medical Center04-25-2023 Instructions* Patient Instructions* Gunjan Joya LPN - 06/12/2022 11:09 AM EDT Pt will schedule CT Follow up with Dr. Ramires 07/17 or 07/18 Schedule treatment 07/24 documented in this encounterOhiohealth Southeastern Medical Center04-25-2023 Nurse Note* Vannessa Lopez Ma - 06/12/2022 10:50 AM EDT Called patient and got the voice mail. Left message to remind patient about the vv scheduled today at 10:50 am with documented in this encounterOhiohealth Southeastern Medical Center04-25-2023 History of Present illness Narrative* Cyn Ramires MD - 06/12/2022 10:45 AM EDT [facility] VISIT This visit [facility] which required patient- provider interaction for the medical decision making as documented below. Persons Present: patient I have communicated my name and active licensure. The patient s identity and physical location wereverified at the time of this visit. Celso Potts or their legal wireless sales representative has been informed ofthe risks and benefits of -- and alternatives to -- treatment through a remote evaluation and consents to proceed with the evaluation remotely. Total Time Spent: 5-10 minutes on this telephone encounter HISTORY REVIEWED (electronic chart updated): - medical history - medications - allergies Interval history: Patient tried to log into [employer] video visit virtual visit. Was not able to I called her on her cell phone She is doing much better. She was seen by pulmonary for cough and mild shortness of breath. She was started on antibiotics and received 5 days of prednisone 20 mg daily Otherwise denies any other complaints and no change of her other symptoms Data Reviewed: Most recent labs and imaging results. Most recent labs REVIEW OF SYSTEMS: VIDEO PHYSICAL EXAMINATION: (if done, performed via video enabled technology) No exam performed ASSESSMENT: 1. Recurrent Hodgkin lymphoma heavily pretreated Currently on pembrolizumab 2. Cough and shortness of breath most likely bronchitis I doubt pneumonitis. Patient had radiation to the chest few years ago as part of her Hodgkin lymphoma treatment PLAN: Repeat CT chest in 3 weeks if her symptoms improve we will restage her with PET scan and may consider resuming Cyn Ramires MD documented in this encounterOhiohealth Southeastern [facility] Center04-17-2023 NoteHNO ID: [id number] Author: Ella Chan APRN.CLINICAL TRIAL DATA MANAGER Service: ? Author Type: Nurse Practitioner Type: Progress Notes Filed: 06/05/2022 1:06 PM Note Text: [facility] Date: June 04, 2022 9:21 AM Name: Celso Potts : 1980 CC: follow up for dyspnea Celso Potts is a 41 year old female with PMH simple chronic bronchitis, dyspnea, post nasal drip, pulmonary embolism on xarelto, restrictive ventilator defect, 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 ASSESSMENT/PLAN: 1. Abnormal CT of the chest - ICD9: 793.2, ICD10: R93.89 (primary diagnosis) 2. Opacity of lung on imaging study - ICD9: 793.19, ICD10: R91.8 3. Simple chronic bronchitis (HCC) - ICD9: 491.0, ICD10: J41.0 4. Dyspnea on exertion - ICD9: 786.09, ICD10: R06.09 5. History of pulmonary embolism - ICD9: V12.55, ICD10: Z86.711 - Most recent PFTs 12/25/2019 with no obstruction. Reduced FVC and TLC indication restriction. Moderately reduced DLCO 56%. History of chronic bronchitis. Hodgkins Lymphoma s/p chemotherapy and radiation to the lungs. Now on Pembrolizumab 200 mg every 3 weeks since November 09, 2019. - Productive cough with SOB since the past few months that has not resolved. - CT chest 05/31 with new reticular nodular opacities in the RML. Will treat with antibiotics and steroid and repeat CT scan to monitor for resolution in 6-8 weeks. - AMOXICILLIN 875 MG-POTASSIUM CLAVULANATE 125 MG TABLET - DOXYCYCLINE HYCLATE 100 MG CAPSULE - PREDNISONE 20 MG TABLET - RESP CULTURE + STAIN - CT CHEST WO IVCON - Continue incruse ellipta and spiriva daily. - Continue albuterol HFA prn for SOB and wheezing - Continue albuterol nebulizer can increase to q4h until you start feeling better, then return to q4h as needed. - Will consider updated PFTs after next appointment. - Continue to follow with heme/onc. Would recommend holding off on next pembrolizumab treatment until after therapy for lung infection and after repeat CT chest. Will monitor for resolution of symptoms and new opacities at next visit. Follow-up in 6 weeks and prn I have discussed the above recommendations in detail with the patient. Patient verbalizes understanding and is in agreement with plan as stated above. Patient has been instructed to call our office, their PCP, or go to the nearest emergency department for new or worsening problems, including but not limited to, increasing shortness of breath, cough, fever, or chills. Electronically signed by Ella Chan APRN.[facility] Respiratory [place], [facility] June 04, 2022 HPI: Celso Potts is a 41 year old female with PMH simple chronic bronchitis, dyspnea, post nasal drip, pulmonary embolism, restrictive ventilator defect, nodular sclerosis Hodgkin Lymphoma and intrathoracic lymph nodes here today for follow-up for dyspnea. She was last seen in the pulmonary office on 04/12/2021 by APRN. 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; status post XRT; Pembrolizumab started 10/2019 -History of pulmonary embolism -Former smoker -Anxiety Plan: -Discontinued Advair and Singulair -Continue albuterol as needed for shortness of breath or wheezing -Prescribed start Spiriva Respimat 2 puffs once per day -Provided Acapella to use after Spiriva and/or albuterol -Continue to follow with heme-onc -On Xarelto -Advised wearing compression socks on airplane -Ordered plies for nebulizer and patient like this faxed to [facility] Discussed with the patient who agrees to the plan RTO in 3 months Since then, no unplanned hospitalizations for breathing issues. Recently saw heme/onc 05/22 for productive cough with yellow sputum for 6 to 8 weeks. Today, she reports she has been has been having a cough and always clearing her throat for the last few months. She reports this has been going on for about 6 months. Shortness of breath is getting worse. Feels like she can't catch her breath at times. Uses her albuterol and feels like it does not help. She takes Mucinex in the evenings which helps, but if she forgets to take it in the evening the cough is worse the next day. Productive cough with yellow/alcantara phlegm. Reports wheezing and crackles that are worse at night. Sometimes prevents her from sleeping. Uses nebulizer every night for sure and some times throughout the day. Takes benadryl, Claritin or zyrtec as needed for allergy symptoms. Reports she has had radiation 3 times to the lung. 2020, few months ago. And Chemotherapy 8 times. Currently on immunotherapies. She reports she has been on Keytruda for 7 years. Denies palpitations, CP, lower ex (more content not included)...[facility]04-13-2023 NoteHNO ID: [id number] Author: Katarzyna Dover, RT(R) Service: Radiology Author Type: Technologist Type: Progress Notes Filed: 05/31/2022 8:02 AM Note Text: Radiology Service Progress Note PATIENT NAME: Celso Potts DATE OF SERVICE: May 31, 2022 TIME: 7:59 AM PATIENT IDENTITY VERIFICATION COMPLETED USING TWO (2) IDENTIFIERS: Name and Date of confirmed by patient verbally and Name and Date of confirmed by identification band. FALL SCREENING: Has the patient had 2 falls in the last year or 1 fall with injury or currently using an Ambulatory Assistive Device (Walker, Cane, Wheelchair, Crutches, etc.)? No PATIENT GENDER DATA: Female. status: : No status: NO. PATIENT RELEVANT IMPLANT DATA REVIEWED: Not Applicable RADIOLOGY DEPARTMENT: CT; Exam(s) Completed: Chest PERIPHERAL IV DATA: Not applicable SIGNED BY: RT Belkis(Junior) May 31, 2022 7:59 [facility]04-13-2023 History of Present illness Narrative* Katarzyna Dover RT(R) - 05/31/2022 8:00 AM EDT Radiology Service Progress Note PATIENT NAME: Celso Potts DATE OF SERVICE: May 31, 2022 TIME: 7:59 AM PATIENT IDENTITY VERIFICATION COMPLETED USING TWO (2) IDENTIFIERS: Name and Date of confirmedby patient verbally and Name and Date of confirmed by identification band. FALL SCREENING: Has the patient had 2 falls in the last year or 1 fall with injury or currently using an Ambulatory Assistive Device (Walker, Cane, Wheelchair, Crutches, etc.)? No PATIENT GENDER DATA: Female. status: : No status: NO. PATIENT RELEVANT IMPLANT DATA REVIEWED: Not Applicable RADIOLOGY DEPARTMENT: CT; Exam(s) Completed: Chest PERIPHERAL IV DATA: Not applicable SIGNED BY: RT Belkis(Junior) May 31, 2022 7:59 AM documented in this encounterOhiohealth [facility]heastern [facility] Center04-04-2023 NoteHNO ID: [id number] Author: Cyn Ramires MD Service: ? Author Type: Physician Type: Progress Notes Filed: 05/22/2022 9:07 AM Note Text: Diagnosis: Recurrent HL, initially Stage IIIb, Nodular sclerosis classical Hodgkin lymphoma diagnosed on 01/16/2012. (age at diagnosis 31YOF, ESR normal, WBC, Hgb, Lymph and alb normal) Previous Treatment: ABVD started on 02/11/2012 x 12 doses progressed to month after stopping treatment ICE x3 progressed after stopping treatment 3 cycles of Brentuximab Vedotin (Adcetris) followed by Auto BMT high-dose busulfan, etoposide, and cyclophosphamide with autologous hematopoietic progenitor cell transplantation in 02/2013 45 Gy in 25 fx was delivered to the mediastinal/hilar/left SC faustina regions using 6 MV photons from 07/27/2013 ? 08/31/2013. Brentuximab Vedotin (Adcetris) Started 02/04/2014 stopped Nivolumab (Opdivo) started Nov 18 2014 stopped early 2019 Ibrutinib started early 2019. Ordered April 22, 2019 stopped oct AREA TREATED: right mesenteric LN COURSE: definitive CURRENT DOSE: 2400 cGy in 03 fx PLANNED DOSE: 2400 cGy in 03 fx Current Treatment: Pembrolizumab 200 mg every 3 weeks started on November 09, 2019 Palliative radiation to be done end of March 2020 secondary to mild progression and continue pembrolizumab after HPI: This is a 40 year old female with no significant PMH presented in August [address] in the neck and left axillary area. She was treated with multiple courses of IV antibiotics without improvement. + B symptoms (fever, drenching night sweats but no wt. loss) and itching rash in the lower exts. Left Axillary LN excisional biopsy: Nodular sclerosis classical Hodgkin lymphoma Feb [address]: IMPRESSION: FINDINGS COMPATIBLE WITH MILD RIGHT CERVICAL AND LEFT ANTERIOR SUBDIAPHRAGMATIC ADENOPATHY, MODERATE TO SEVERE HYPERMETABOLIC BILATERAL AXILLARY AND SUPRACLAVICULAR (LEFT GREATER THAN RIGHT), SUPERIOR MEDIASTINAL, RIGHT PARATRACHEAL, AND ANTERIOR MEDIASTINAL ADENOPATHY. FINDINGS SUSPICIOUS OF HYPERMETABOLIC SPLENIC LYMPHOMATOUS INVOLVEMENT. Bone Marrow Bx was negative incidental finding of pulmonary embolism on CT chest. Patient was started on Lovenox on May 27, 2012 Relapsed S/P 3 cycles of ICE with progression, S/P Brentuximab Vedotin (Adcetris) and Auto BMT Radiation to the chest complicated with Radiation pneumonitis Brentuximab Vedotin (Adcetris) stopped 2nd to grade III pneumonitis She saw Dr. Alejandro sarmiento at [facility] for 2nd opinion cell([phone]) She agreed with out plan and recommended repeat of her PET and if progressed either Opdivo vs clinical trial March 02, 2018 CT chest abdomen and pelvis mild progression of the lymph nodes in the abdomen and pelvis. PET scan was recommended Early 2018 patient was diagnosed with psoriasis (multiple 1-2 cm spots on her extremities). Patient stated rash started when we changed to every 4 weeks dosing. We'll resume every 2 weeks dosing and psoriasis is better to stable 03/13/2019 PET scan showed progression IMPRESSION: 1. NECK: * No FDG avid neoplastic process. 2. CHEST:* No FDG avid neoplastic process. 3. ABDOMEN/PELVIS:* Interval progression of retroperitoneal faustina metastatic disease with increase in size and FDG avidity of nodes/conglomerate masses in the upper abdomen since 03/08/2017. * Development of new FDG avid hepatic metastases in segments II and IVb. * FDG avid splenic lesion has increased in size and relative FDG avidity since the prior exam. 4. EXTREMITIES/SKELETON: No suspicious FDG avid osseous lesion. Deauville score: 5 Ibrutinib was orderef on 04/22/2019 PET scan October 2019 showed disease progression. Ibrutinib was stopped. Pembrolizumab was started in October 2019 PET scan March 2020 mild disease progression Palliative radiation was recommended April 2020 Palliative radiation to the spleen, liver and lymph node at main campus PET showed progression early 2022March 2019 AREA TREATED: right mesenteric LN COURSE: definitive CURRENT DOSE: 2400 cGy in 03 fx PLANNED DOSE: 2400 cGy in 03 fx Interval history: Patient is here for another cycle of pembrolizumab. She has been tolerating treatment well without any significant side effect but today stated that she has been having a productive cough with yellow sputum for the last 6 to 8 weeks. Mucinex helped with the cough but once she stopped taking it the cough with yellow sputum comes back. Antiallergy medication did not help PAST MEDICAL HISTORY: History of tachycardia treated with atenolol, pulmonary embolism incidentally found on restaging CT (May 27, 2012). 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 single a (more content not included)...[facility]04-03-2023 NoteHNO ID: [id number] Author: Estrada Del Valle MD Service: ? Author Type: Physician Type: Progress Notes Filed: 05/21/2022 9:29 AM Note Text: No show. Estrada Del Valle MD, MSc, MRCP, FRSOCO, ACER Radiation Oncology Staff Physician May 21, 2022 9:28 [facility]04-03-2023 History of Present illness Narrative* Estrada Del Valle MD - 05/21/2022 9:28 AM EDT No show. Estrada Del Valle MD, MSc, MRCP, LANE, ACER Radiation Oncology Staff Physician May 21, 2022 9:28 AM documented in this encounterOhiohealth [facility]heastern Medical Center03-08-2023 Miscellaneous Notes* Telephone Encounter - Maye Elder RN - 04/25/2022 2:13 PM EST RADIATION POST TREATMENT CALL BACK Today's date: April 25, 2022 Patient's final treatment on 04/06/2022. Treatment site right mesenteric LN Called patient to follow-up on symptom management and follow-up appointments. Spoke with Celso. Focused Toxicity Assessment: Abdomen right mesenteric LN Pain: upset stomach Fatigue: increased fatigue over baseline but not altering normal activities Appetite: increased appetite Nutritional Intake: Regular oral intake: yes Nausea: yes every morning Vomiting: no Bowel Function: normal bowel movements Bladder Function: WNL Erythema/Hyperpigmentation: none Desquamation: none Rash: none Skin Care: None Skin Sensation: Within Normal Limits Fever/chills: No Weight Loss: No Ascites: No Psychosocial Risk Factors: None Does the patient need interventions, referrals or same day appointment:No Reinforced CURRENT treatment education based on current and anticipated symptoms. Patient instructed to contact Dr. Del Valle's office with questions or concerns or Radiation Oncology Fellow Business Systems Architect after 5pm and on weekends for urgent issues. Patient verbalized understanding of when to seek medical attention and after hours number protocol. Follow up appointment: Reminded patient of virtual visit on 05/18/2022 with Estrada Del Valle M.D. Maye MUELLER, RN documented in this encounterOhiohealth Southeastern Medical Center03-06-2023 NoteHNO ID: [id number] Author: Juan Francisco Hutchinson APRN.CLINICAL TRIAL DATA MANAGER Service: ? Author Type: Nurse Practitioner Type: Progress Notes Filed: 04/23/2022 11:11 AM Note Text: PALLIATIVE MEDICINE PROGRESS NOTE SERVICE DATE: 04/23/2022 Primary Site of Disease/Medical Illness: Hodgkin Lymphoma Site of Metastasis: Liver, Lymph nodes, Spleen CHIEF COMPLAINT: follow up pain PERTINENT MEDICAL HISTORY: Celso Potts is a 41 yo female with Hodgkin's Lymphoma diagnosed 01/16/2012 s/p autologous SCT (2013) and several other treatments due to recurrences in that time. She has undergone palliative radiation to spleen, liver, and lymph nodes per Dr. Del Valle. She is currently treated with Keytruda per Dr. Abimael Ramires. Course has been c/b pulmonary embolus (on AC). Palliative care is following for symptom control needs. Subjective Last pall care visit 01/25/22 Since last seen, had progression in right mesenteric LN s/p radiation per Dr. Del Valle Today presents alone Reports feeling largely at her baseline but continues to experience GI upset and fatigue associated to radiation. She is using pepto tabs which are helpful for GI upset. Generalized joint pains associated to immunotherapy and muscle spasms are at baseline and well controlled with baclofen, cyclobenzoprine, gabapentin, APAP and oxycodone. She is able to remain fully functional and gets good sleep quality with this regimen. Denies confusion, oversedation, myoclonus. Denies constipation - taking colace Eating well. Weight is maintained but she chooses not to watch her weight because this causes her more anxiety. Mood is stable. She is noting improved mood as weather changes to spring. Modified ESAS (Davenport Symptom Assessment Scale) Information Provided By: Patient Pain: Moderate Nausea: Mild Loss of Appetite: None Constipation: None Shortness of Breath: None Drowsiness: None Tiredness: Mild Depression: None Anxiety: Mild How you feel overall: Good Objective ECOG PERFORMANCE STATUS: 0- Fully active, able to carry on all pre-disease performance w/o restriction. PHYSICAL EXAMINATION: Vital signs: BP 113/77 Pulse 99 Wt 106.9 kg (235 lb 11.2 oz) LMP 11/18/2012 BMI 32.63 kg/m? Last 1 Encounter Temp Readings: Date: Temp: Temp Src: 04/10/2022 36.8 ?C (98.3 ?F) Oral Last 1 Encounter Resp Readings: Date: Resp: 04/06/2022 Last 1 Encounter Pulse Readings: Date: Pulse: 04/23/2022 99 Last 1 Encounter BP Readings: Date: BP: 04/23/2022 113/77 General Appearance: No apparent distress and well nourished Skin: No jaundice and No rash Lungs: unlabored respirations, no conversational dyspnea Abdomen: Soft and no distension Musculoskeletal: No edema and No gross deformity Neuro: Alert and oriented to time place and person and gait normal, no myoclonus Psych: Well groomed, Affect congruent with mood, and Good eye contact DATA: Diagnostic tests reviewed for today's visit: Most recent labs and imaging results. Estimated Creatinine Clearance: 139.8 mL/min (based on SCr of 0.73 mg/dL). Opioid Management: Yes Indication for Opioid Prescribing: Cancer related pain ORT-OUD Score: 2 A score of 3 or higher may indicate a higher risk for future development of aberrant drug related behavior or opioid use disorder. Informed consent for chronic opiate therapy obtained and written pain agreement: On file Naloxone offered?: Previously prescribed Course of treatment, patient's response and adherence to the prescribed treatment plan reviewed, including non-pharmacological and non-opioid treatment modalities? Yes Have any complications or exacerbations of the underlying condition causing the pain been reviewed? Yes How much does pain impede patient?s ability to engage in work or other purposeful activities, interfere with your activities of daily living, physical activity, or quality of your family life and social activities? Significantly Aberrancies in pain panel? No Any aberrant drug related behaviors since last visit? No Rationale for continuing opioid treatment: Improved comfort and function based on an ongoing functional assessment Benefits of Opioid Therapy outweigh risks: Yes Prescribed Morphine Equivalent Daily Dose (MEDD): Yes > 50 MEDD Yes, I am certified in Hospice and Palliative Care, Hematology, Medical Oncology or Pain Medicine OARRS Checked: PDMP website checked and validated. All prescriptions have been APPROPRIATELY filled. No suspicious activity was identified. 04/23/2022 by Juan Francisco Hutchinson APRN.PEDRO Urine Screen Lab Results Component Value Date UAMPH Negative 02/24/2021 UBARB2 Negative 02/24/2021 UBENZ Negative 02/24/2021 UQBUPRE <20 01/25/2022 UQNORBUP <20 01/25/2022 UCOC2 Negative 02/24/2021 UQCANN <16 01/25/2022 UOPI Negative 02/24/2021 UOXYC Negative 02/24/2021 UPCP Negative 02/24/2021 UTHC Negative 02/24/2021 UETOH <11 02/24/2021 Urine Panel: Lab Results (more content not included)...[facility]03-06-2023 Instructions * Patient Instructions* Juan Francisco Hutchinson APRN.PEDRO - 04/23/2022 10:30 AM EST Juan Francisco Hutchinson CNP Department of Palliative and Supportive Care Palliative Care - Specialty services in symptom management and support For questions or prescription refills, call: [phone] Saturday - Saturday 9AM-5PM ERVIN Corrales, RN - Novelty Maker Please call 3-5 days in advance for medication refills Evenings, Weekends, Holidays: [phone] (ask for palliative medicine on-call provider) For appointments, cancellations or reschedule, call: [phone] documented in this encounterOhiohealth Southeastern Medical Center03-06-2023 History of Present illness Narrative* Juan Francisco Hutchinson APRN.PEDRO - 04/23/2022 9:56 AM EST PALLIATIVE MEDICINE PROGRESS NOTE SERVICE DATE: 04/23/2022 Primary Site of Disease/Medical Illness: Hodgkin Lymphoma Site of Metastasis: Liver, Lymph nodes, Spleen CHIEF COMPLAINT: follow up pain PERTINENT MEDICAL HISTORY: Celso Potts is a 41 yo female with Hodgkin's Lymphoma diagnosed 01/16/2012 s/p autologous SCT (2013) and several other treatments due to recurrences in that time. She hasundergone palliative radiation to spleen, liver, and lymph nodes per Dr. Del Valle. She is currently t reated with Keytruda per Dr. Abimael Ramires. Course has been c/b pulmonary embolus (on AC). Palliative care is following for symptom control needs. Subjective Last pall care visit 01/25/22 Since last seen, had progression in right mesenteric LN s/p radiation per Dr. Del Valle Today presents alone Reports feeling largely at her baseline but continues to experience GI upset and fatigue associatedto radiation. She is using pepto tabs which are helpful for GI upset. Generalized joint pains associated to immunotherapy and muscle spasms are at baseline and well controlled with baclofen, cyclobenzoprine, gabapentin, APAP and oxycodone. She is able to remain fully functional and gets good sleep quality with this regimen. Denies confusion, oversedation, myoclonus. Denies constipation - taking colace Eating well. Weight is maintained but she chooses not to watch her weight because this causes her more anxiety. Mood is stable. She is noting improved mood as weather changes to spring. Modified ESAS (Davenport Symptom Assessment Scale) Information Provided By: Patient Pain: Moderate Nausea: Mild Loss of Appetite: None Constipation: None Shortness of Breath: None Drowsiness: None Tiredness: Mild Depression: None Anxiety: Mild How you feel overall: Good Objective ECOG PERFORMANCE STATUS: 0- Fully active, able to carry on all pre-disease performance w/o restriction. PHYSICAL EXAMINATION: Vital signs: BP 113/77 Pulse 99 Wt 106.9 kg (235 lb 11.2 oz) LMP 11/18/2012 BMI 32.63 kg/m Last 1 Encounter Temp Readings: Date: Temp: Temp Src: 04/10/2022 36.8 C (98.3 F) Oral Last 1 Encounter Resp Readings: Date: Resp: 04/06/2022 Last 1 Encounter Pulse Readings: Date: Pulse: 04/23/2022 99 Last 1 Encounter BP Readings: Date: BP: 04/23/2022 113/77 General Appearance: No apparent distress and well nourished Skin: No jaundice and No rash Lungs: unlabored respirations, no conversational dyspnea Abdomen: Soft and no distension Musculoskeletal: No edema and No gross deformity Neuro: Alert and oriented to time place and person and gait normal, no myoclonus Psych: Well groomed, Affect congruent with mood, and Good eye contact DATA: Diagnostic tests reviewed for today's visit: Most recent labs and imaging results. Estimated Creatinine Clearance: 139.8 mL/min (based on SCr of 0.73 mg/dL). Opioid Management: Yes Indication for Opioid Prescribing: Cancer related pain ORT-OUD Score: 2 A score of 3 or higher may indicate a higher risk for future development of aberrant drug related behavior or opioid use disorder. Informed consent for chronic opiate therapy obtained and written pain agreement: On file Naloxone offered?: Previously prescribed Course of treatment, patient's response and adherence to the prescribed treatment plan reviewed, including non-pharmacological and non-opioid treatment modalities? Yes Have any complications or exacerbations of the underlying condition causing the pain been reviewed?Yes How much does pain impede patient s ability to engage in work or other purposeful activities, interfere with your activities of daily living, physical activity, or quality of your family life and social activities? Significantly Aberrancies in pain panel? No Any aberrant drug related behaviors since last visit? No Rationale for continuing opioid treatment: Improved comfort and function based on an ongoing functional assessment Benefits of Opioid Therapy outweigh risks: Yes Prescribed Morphine Equivalent Daily Dose (MEDD): Yes > 50 MEDD Yes, I am certified in Hospice and Palliative Care, Hematology, Medical Oncology or Pain Medicine OARRS Checked: PDMP website checked and validated. All prescriptions have been APPROPRIATELY filled. No suspiciousactivity was identified. 04/23/2022 by Juan Francisco Hutchinson APRN.CLINICAL TRIAL DATA MANAGER Urine Screen Lab Results Component Value Date UAMPH Negative 02/24/2021 UBARB2 Negative 02/24/2021 UBENZ Negative 02/24/2021 UQBUPRE <20 01/25/2022 UQNORBUP <20 01/25/2022 UCOC2 Negative 02/24/2021 UQCANN <16 01/25/2022 UOPI Negative 02/24/2021 UOXYC Negative 02/24/2021 UPCP Negative 02/24/2021 UTHC Negative 02/24/2021 UETOH <11 02/24/2021 Urine Panel: Lab Results Component Value Date Cannabinoid Quant, Urine <16 01/25/2022 Cannabinoid Quant, Urine <16 02/24/2021 Benzoylecognine Quant, Urine <24 02/24/2021 Benzoylecgonine Quant, Urine <24 01/25/2022 6-Acetylmorphine Quant, Urine <5 01/25/2022 6-Acetylmorphine Quant, Urine <5 02/24/2021 Amphetamine Quant, Urine <5 01/25/2022 Amphetamine Quant, Urine <5 02/24/2021 Methamphetamine Quant, Urine <8 01/25/2022 Methamphetamine Quant, Urine <8 02/24/2021 Buprenorphine Quant, Urine <20 01/25/2022 Buprenorphine Quant, Urine <20 02/24/2021 Norbuprenorphine Quant, Urine <20 01/25/2022 Norbuprenorphine Quant, Urine <20 02/24/2021 Methadone Quant, Urine <16 01/25/2022 Methadone Quant, Urine <16 02/24/2021 EDDP Quant, Urine <6 01/25/2022 EDDP Quant, Urine <6 02/24/2021 Tramadol Quant, Urine <25 01/25/2022 Tramadol Quant, Urine <25 02/24/2021 Desmethyltramadol Quant, Urine <20 01/25/2022 Desmethyltramadol Quant, Urine <20 02/24/2021 Fentanyl Quant, Urine <6 01/25/2022 Fentanyl Quant, Urine <6 02/24/2021 Norfentanyl Quant, Urine <6 01/25/2022 Norfentanyl Quant, Urine <6 02/24/2021 Codeine Quant, Urine <11 01/25/2022 Codeine Quant, Urine <11 02/24/2021 Morphine Quant, Urine <10 01/25/2022 Morphine Quant, Urine <10 02/24/2021 Dihydrocodeine Quant, Urine <5 01/25/2022 Dihydrocodeine Quant, Urine <5 02/24/2021 Hydrocodone Quant, Urine <8 01/25/2022 Hydrocodone Quant, Urine <8 02/24/2021 Oxycodone Quant, Urine 2,574 (H) 01/25/2022 Oxycodone Quant, Urine <10 02/24/2021 Hydromorphone Quant, Urine <5 01/25/2022 Hydromorphone Quant, Urine <5 02/24/2021 Oxymorphone Quant, Urine 2,296 (H) 01/25/2022 Oxymorphone Quant, Urine <5 02/24/2021 Creatinine,Ur Pain [place]casio 70.2 02/24/2021 Urine pH, Pain Ocasio 6.3 02/24/2021 Specific [place],Ur Pain Ocasio 1.012 02/24/2021 Oxidants,Ur 46 02/24/2021 Specimen Quality, Ur Pain Ocasio Specimen quality results within acceptable limits. 05/03/2014 Assessment & Plan (Z51.5) Encounter for palliative care (primary encounter diagnosis) - reviewed role of palliative care, contact info, and reasons to call. 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 Ramires (G89.3) Cancer related pain - nociceptive somatic pain associated to prior radiation effects c/b joint pain associated to psoriatic arthritis - exacerbated by immunotherapy - managed well presently - suggest routine use of APAP 1000 mg TID - continue gabapentin 600 mg TID - continue oxycodone 10 mg Q4H PRN (counseled on use of benzo and opioids together and increased risk of respiratory depression; narcan previously prescribed) - consider addition of duloxetine if worsening - suggest rheumatology involvement (R25.2) Muscle cramps - much improved and well controlled - continue baclofen 10 mg TID - continue cyclobenzaprine 10 mg TID PRN (F41.9) Anxiety - long standing problem - increases when scans are due (getting Q6 months) - previously reports hydroxyzine was ineffective - current medications managed per oncology ativan - highly encouraged establishing with counselor - she currently does not want to do this due to number of appointments. - would advise addition of SSRI or SNRI (Cymbalta) if persisting. Patient declines Some elements copied from my note on 01/25/22, the elements have been updated and all reflect current decision making from today, 04/23/2022. Medical Decision Making: Problems: Moderate: 1+ chronic illnesses with change Risk: High: Drug therapy requiring intensive monitoring Medical Decision Making Level: 4 - Moderate Existence of Advance Directives: Unknown Next Visit: 3 Months in person Juan Francisco Hutchinson APRN.CLINICAL TRIAL DATA MANAGER April 23, 2022 9:56 AM This note may have been partially generated using the [employer] voice recognition system. While every effort was made to correct voice recognition errors, kindly be aware that some errors may occasionally occur. documented in this encounterOhiohealth [facility] Medical Center03-03-2023 Miscellaneous Notes* Telephone Encounter - Maye Elder RN - 04/20/2022 2:51 PM EST RADIATION POST TREATMENT CALL BACK Today's date: April 20, 2022 Patient's final treatment on 04/06/2022. Treatment site right mesenteric LN Called patient to follow-up on symptom management and follow-up appointments. No answer. I left a message on her voicemail along with my contact information for any questions or concerns. Follow up appointment: Reminded patient of virtual visit on 05/18/2022 with Estrada Del Valle M.D. Maye MUELLER, RN documented in this encounterOhiohealth Southeastern Medical Center02-27-2023 Miscellaneous Notes* Telephone Encounter - Juan Francisco Hutchinson APRN.CNP - 04/16/2022 1:38 PM EST PDMP website checked and validated. All prescriptions have been APPROPRIATELY filled. No suspiciousactivity was identified. 04/16/2022 by Juan Francisco Hutchinson APRN.CLINICAL TRIAL DATA MANAGER Rx sent Juan Francisco Hutchinson APRN.CLINICAL TRIAL DATA MANAGER * Telephone Encounter - Kylie Mosher RN - 04/16/2022 1:20 PM EST Patient requesting refills as follows: Next PM appt 04/23/2022 Last ordered 03/15/2022 Requested Prescriptions Pending Prescriptions Disp Refills oxyCODONE IR (ROXICODONE) 10 mg tab 120 tablet 0 Sig: Take 1 tablet by mouth every 4 hours as needed (moderate-severe cancer pain) for up to 30 days. baclofen (LIORESAL) 5 mg tablet 90 tablet 2 Sig: Take 1 tablet by mouth three times daily. Please review and advise. Kylie Mosher RN documented in this encounterOhiohealth Southeastern Medical Center02-22-2023 NoteHNO ID: [id number] Author: Estrada Del Valle MD Service: Radiation Oncology Author Type: Physician Type: Progress Notes Filed: 05/07/2022 3:36 PM Note Text: CELSO POTTS [id number] 04/11/[address] [facility] Department of Radiation Oncology [facility] RADIATION ONCOLOGY: COMPLETION NOTE DATE OF SIMULATION: 03/23/2022 DATES OF TREATMENT: 04/02/2022 to 04/06/2022 TREATMENT MACHINE: Edge2 TREATMENT AREA: Right mesenteric LN DIAGNOSIS: 41 year old female with Nodular sclerosis classical Hodgkin lymphoma, lymph nodes of multiple sites, clinical stage IIIS DELIVERED DOSE: The Right mesenteric LN PTV received a total dose of 2400 cGy in 3 fractions at 800 cGy/fraction prescribed to Max Dose at 71.4% IDL using 10 MV photons with SBRT Coplanar VMAT technique; daily CBCT was used for IGRT; belt compression was used for motion management. ELAPSED DAYS: 4 TOLERANCE: At last on-treatment visit, her toxicity was summarized as: fatigue - grade 1. RESPONSE: To be assessed in outpatient clinic. REMARKS: The patient will be seen again in follow up in 6 weeks. Resident Physician Evy Patricio M.D. Staff Physician Estrada Del Valle M.D 31:47 PM Electronically Signed cc: Jose Vail MD [id number] [place] [address] [place] [id number] [facility] [id number] [facility] History of Present illness Narrative* Estrada Del Valle MD - 04/11/2022 12:00 AM EST CELSO POTTS [id number] 04/11/[address] [facility] Department of Radiation Oncology [facility] RADIATION ONCOLOGY: COMPLETION NOTE DATE OF SIMULATION: 03/23/2022 DATES OF TREATMENT: 04/02/2022 to 04/06/2022 TREATMENT MACHINE: Edge2 TREATMENT AREA: Right mesenteric LN DIAGNOSIS: 41 year old female with Nodular sclerosis classical Hodgkin lymphoma, lymph nodes of multiple sites, clinical stage IIIS DELIVERED DOSE: The Right mesenteric LN PTV received a total dose of 2400 cGy in 3 fractions at 800 cGy/fraction prescribed to Max Dose at 71.4% IDL using 10 MV photons with SBRT Coplanar VMAT technique; daily CBCT was used for IGRT; belt compression was used for motion management. ELAPSED DAYS: 4 TOLERANCE: At last on-treatment visit, her toxicity was summarized as: fatigue - grade 1. RESPONSE: To be assessed in outpatient clinic. REMARKS: The patient will be seen again in follow up in 6 weeks. Resident Physician Evy Patricio M.D. Staff Physician Estrada Del Valle M.D :47 PM Electronically Signed cc: Jose Vail MD [id number] [place] [address] [place] [id number] [address] [facility] [id number] documented in this encounterOhiohealth Southeastern Medical Center02-21-2023 NoteHNO ID: [id number] Author: Cyn Ramires MD Service: ? Author Type: Physician Type: Progress Notes Filed: 04/10/2022 9:22 AM Note Text: Diagnosis: Recurrent HL, initially Stage IIIb, Nodular sclerosis classical Hodgkin lymphoma diagnosed on 01/16/2012. (age at diagnosis 31YOF, ESR normal, WBC, Hgb, Lymph and alb normal) Previous Treatment: ABVD started on 02/11/2012 x 12 doses progressed to month after stopping treatment ICE x3 progressed after stopping treatment 3 cycles of Brentuximab Vedotin (Adcetris) followed by Auto BMT high-dose busulfan, etoposide, and cyclophosphamide with autologous hematopoietic progenitor cell transplantation in 02/2013 45 Gy in 25 fx was delivered to the mediastinal/hilar/left SC faustina regions using 6 MV photons from 07/27/2013 ? 08/31/2013. Brentuximab Vedotin (Adcetris) Started 02/04/2014 stopped 2nd to neuropathy Nivolumab (Opdivo) started Nov 18 2014 stopped early 2019 Ibrutinib started early 2019. Ordered April 22, 2019 stopped oct AREA TREATED: right mesenteric LN COURSE: definitive CURRENT DOSE: 2400 cGy in 03 fx PLANNED DOSE: 2400 cGy in 03 fx Current Treatment: Pembrolizumab 200 mg every 3 weeks started on November 09, 2019 Palliative radiation to be done end of March 2020 secondary to mild progression and continue pembrolizumab after HPI: This is a 40 year old female with no significant PMH presented in August [address] in the neck and left axillary area. She was treated with multiple courses of IV antibiotics without improvement. + B symptoms (fever, drenching night sweats but no wt. loss) and itching rash in the lower exts. Left Axillary LN excisional biopsy: Nodular sclerosis classical Hodgkin lymphoma Feb [address]: IMPRESSION: FINDINGS COMPATIBLE WITH MILD RIGHT CERVICAL AND LEFT ANTERIOR SUBDIAPHRAGMATIC ADENOPATHY, MODERATE TO SEVERE HYPERMETABOLIC BILATERAL AXILLARY AND SUPRACLAVICULAR (LEFT GREATER THAN RIGHT), SUPERIOR MEDIASTINAL, RIGHT PARATRACHEAL, AND ANTERIOR MEDIASTINAL ADENOPATHY. FINDINGS SUSPICIOUS OF HYPERMETABOLIC SPLENIC LYMPHOMATOUS INVOLVEMENT. Bone Marrow Bx was negative incidental finding of pulmonary embolism on CT chest. Patient was started on Lovenox on May 27, 2012 Relapsed S/P 3 cycles of ICE with progression, S/P Brentuximab Vedotin (Adcetris) and Auto BMT Radiation to the chest complicated with Radiation pneumonitis Brentuximab Vedotin (Adcetris) stopped 2nd to grade III pneumonitis She saw Dr. Alejandro sarmiento at [facility] for 2nd opinion cell([phone]) She agreed with out plan and recommended repeat of her PET and if progressed either Opdivo vs clinical trial March 02, 2018 CT chest abdomen and pelvis mild progression of the lymph nodes in the abdomen and pelvis. PET scan was recommended Early 2018 patient was diagnosed with psoriasis (multiple 1-2 cm spots on her extremities). Patient stated rash started when we changed to every 4 weeks dosing. We'll resume every 2 weeks dosing and psoriasis is better to stable 03/13/2019 PET scan showed progression IMPRESSION: 1. NECK: * No FDG avid neoplastic process. 2. CHEST:* No FDG avid neoplastic process. 3. ABDOMEN/PELVIS:* Interval progression of retroperitoneal faustina metastatic disease with increase in size and FDG avidity of nodes/conglomerate masses in the upper abdomen since 03/08/2017. * Development of new FDG avid hepatic metastases in segments II and IVb. * FDG avid splenic lesion has increased in size and relative FDG avidity since the prior exam. 4. EXTREMITIES/SKELETON: No suspicious FDG avid osseous lesion. Deauville score: 5 Ibrutinib was orderef on 04/22/2019 PET scan October 2019 showed disease progression. Ibrutinib was stopped. Pembrolizumab was started in October 2019 PET scan March 2020 mild disease progression Palliative radiation was recommended April 2020 Palliative radiation to the spleen, liver and lymph node at main campus PET showed progression early 2022March 2019 AREA TREATED: right mesenteric LN COURSE: definitive CURRENT DOSE: 2400 cGy in 03 fx PLANNED DOSE: 2400 cGy in 03 fx Interval history: Patient is here for follow-up on above diagnosis. She had radiation last week and tolerated it well except for nausea otherwise no change in her symptoms and has been doing Denies any fever, night sweats or weight loss. Her symptoms are stable PAST MEDICAL HISTORY: History of tachycardia treated with atenolol, pulmonary embolism incidentally found on restaging CT (May 27, 2012). 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 Author Type: Physician Type: Progress Notes Filed: 04/15/2022 4:18 PM Note Text: Radiation Oncology - On Treatment Review (OTR) Note PATIENT NAME: Celso Potts PATIENT DIAGNOSIS: Relapsed refractory Hodgkins Lymphoma (sites of active disease liver, spleen and RP nodes). Currently on Pembrolizumab 200 mg every 3 weeks started on November 09, 2019. For consideration of palliative RT to sites of active disease. S/p The Spleen Liver RP Node PTV received a total dose of 2000 cGy in 5 fractions at 400 cGy/fraction prescribed to PTV mean at 96.0% IDL using 10 MV photons with VMAT Coplanar technique. RT completed on 04/25/2020. Now has oligo progression in a single right upper mesentric LN. For abdominal re-irradiation using SBRT, 24gy/3fx. AREA TREATED: right mesenteric LN COURSE: definitive CURRENT DOSE: 2400 cGy in 03 fx PLANNED DOSE: 2400 cGy in 03 fx SUBJECTIVE: Celso Potts presents for OTR visit after 3 fx's. She reports some mild fatigue but no other bothersome side effects. Toxicity Fatigue - Grade 1 EXAM: KPS: 90 General Appearance: Alert and oriented. No acute distress. Radiation Dermatitis: No IMAGING/LAB RESULTS: None ASSESSMENT/PLAN: Clinically stable. Toxicity within expected parameters. The patient has completed radiotherapy and will be seen in follow-up in 6 weeks. Acute and delayed side effects reviewed. Evy Patricio MD Radiation Oncology Resident (PGY-5) [id number] I have personally participated in the osorio components of the case and agree with the above findings: Treatment chart checked: YES Patient treatment site reviewed and verified: YES Setup images reviewed and current: YES Signed by: Estrada Del Valle [facility]02-06-2023 History of Present illness Narrative* Estrada Del Valle MD - 03/26/2022 11:25 AM EST The natural history and biology of the disease together with the rationale for radiotherapy including the risk, benefits, side effects (both acute and late) and alternatives to radiation therapy werediscussed with the patient in detail. The patient was also informed about the limitations of radiation therapy, multi- disciplinary personals involved and about the multi-stage processes in treatment planning and delivery. The patient confirmed good understanding of the entire discussion and that questions were answered to satisfaction, there-by agreeing to proceed. An informed consent was obtained, following which a radiotherapy simulation request was made. These recommendations will be communicated to the requesting physician by way of shared medical record and/or letter via U.S. Mail. Tori for allowing us to participate in the care of this individual. I spent over 50% of a total mvcz-sc-hvaf time of 60-80 minutes, counseling/coordinating patient care. Estrada Del Valle MD, MSc, MRCP, FRCR, DABR Radiation Oncology Staff Physician March 26, 2022 11:25 AM documented in this encounterOhiohealth [facility]02-03-[facility]23 Nurse Note* Zoila Lane LPN - 03/23/2022 9:18 AM EST Radiation Oncology Nursing Note PATIENT NAME: Celso Potts PATIENT [facility] FACILITY/LOCATION: [facility] PROCEDURE: Contrast Injection for CT Simulation Safety Checks Patient identified using 2 identifiers: Yes NPO x 4 hours verified: Yes Creatinine level drawn within the last 60 days: Yes Creatinine level within normal limits: Yes IV start: Time: 0858. #22g angiocath placed in the Right AC. Positive blood return verified: Yes Physician order for contrast injection verified: Yes Patient's allergies verified, including CT contrast: Yes Is the patient having any pain? None. 0 on a scale of 0 to 10. Concerns about physical or emotional abuse: No Fall risk: No SIGNED by Zoila Lane LPN Radiation Therapy - Patient Education Note PATIENT NAME: Celso Potts PATIENT March 23, 2022 [facility] FACILITY/LOCATION: [facility] READINESS TO LEARN Cognitive Ability: Alert and oriented Motivation to learn: Eager Family Support: High - Very involved in pt care Instruction provide to: Patient and family member Patient learns best by: Individual Instruction Written Instruction - Hand-outs Verbal Instruction Factors effecting learning: None Physical limitations effecting learning: None LEARNING RESPONSE Diagnosis: Pt simulated today for radiation therapy to the Abdomen. Education Topic/Teaching Points: Radiation therapy, Side effects, and OTV: Method of instruction: Individual instruction Written instruction - handouts Verbal instruction Patient /Family response: Patient and family verbalized understanding of radiation treatments, sideeffects, OTV, and transportation. Follow-up plan: Patient instructed to call with any further issues Supplemental material: Informational handouts on Skin and Fatigue. Referral (recommendation): None, Pt denied need for social work, van service, and baker pastry. Was KP approved? No KP completed and on 03/07/22 scored 0 distress. Signed by: Zoila Lane LPN documented in this encounterOhiohealth [facility] Center02-03-2023 History of Present illness Narrative* [facility] Provider - 03/23/2022 12:00 AM EST CELSO POTTS Paige [id number] 03/23/[address] [facility] Department of Radiation Oncology [facility] RADIATION ONCOLOGY - Therapist Injection Note Procedure: Contrast Injection for CT Simulation Safety Checks: Patient identified using two identifiers: Yes Physician order for contrast injection verified: Yes Patient's allergies verified, including CT contract: Yes eGFR verified: Yes Omnipaque: 300 mg/ml Volume: 100cc Time contrast administered: 9:25AM Complications/Reaction: No Patient Disposition: Patient IV access: Peripheral Time IV removed: 9:40AM Patient/family provided with treatment instructions: Yes Patient/family verbally acknowledged understanding of treatment instructions: Yes Disposition: HOME Therapist: magali documented in this encounterOhiohealth [facility]heastern [facility] Center02-03-2023 History of Present illness Narrative* Estrada Del Valle MD - 03/23/2022 12:00 AM EST CELSO POTTS Junior [id number] 03/23/2022 [facility] Department of Radiation Oncology Treatment Planning Note For reasons stated in the consult note, Celso Potts is a candidate for radiation therapy. Based on review and interpretation of the relevant diagnostic studies together with the exam findings, Celso Potts was simulated on 03/23/2022 at which time the target volume and/or requisite rodriguez were delineated, as indicated in the simulation note, to be treated according to the prescription. CT images were taken during controlled breathing using a breath hold device. Multiple CT image setswere acquired and reviewed to assess respiratory reproducibility, which was incorporated in the internal target volume (ITV). Motion management allowed for design of patient specific planning target volume and reduced the radiation exposure to normal tissues. The treatment target and organs at risk were contoured on the simulation scan. Special consideration to these and other structures was given in light of the potential for increased toxicities re-treatment of a previously irradiated site. After reviewing multiple treatment plans with dosimetry, the best plan was approved to deliver the prescribed course of radiation to the target area using inverse planning to allow for the best isodose distribution, treating to the 71.4% isodose line with 10 MV FFF and 1 field. Custom MLCs for VMATwere the treatment devices used to shape/modify the beams. Limiting dose to normal tissue was confirmed upon review of the calculated dose volume histogram. IMRT planning was used because it best met the dose/volume constraints for the organs at risk for this patient, better than what could be achieved using conventional or 3D planning. The specific doserequirements for the PTV, organs at risk and dose-volume histograms are contained in this treatmentplan and/or elsewhere in the medical record. A completed summary of this plan dated 03/28/22 incorporated herein by reference includes dose, beam arrangements, energy, blocking, isodose distribution, and/or ports and DVH. Electronically Signed Estrada Del Valle M.D. 37:10 AM documented in this encounterOhiohealth Southeastern Medical Center02-02-2023 Miscellaneous Notes* Telephone Encounter - Dary Gonzalez RN - 03/22/2022 11:54 AM EST RADIATION ONCOLOGY NURSING PRE-SIM CALL Today's date: March 22, 2022 Time: 11:55 AM SIM date: 03/23/22 Patient instructed to be NPO after 5am. Patient verbalized understanding. SIM needs: Do you have a Mediport or PICC: No Anxiety / Claustrophobia History: yes, patient will bring her own ativan. Pain Needs: Is that patient having pain that will impact SIM? No Will patient need pain medication prior to SIM? No Last Creatinine: Creatinine Date Value Ref Range Status 03/06/2022 0.73 0.58 - 0.96 mg/dL Final ] Last BUN: BUN Date Value Ref Range Status 03/06/2022 13 7 - 21 mg/dL Final Last GFR: No results found for: EGFR IV Contrast: No Diabetic: No Status: Patient states there is no possibility she is at this time. Per Dr. Del Valle he does not need to order HCG prior to simulation and radiation. Dary Gonzalez RN documented in this encounterOhiohealth [facility]heastern [facility] Center01-29-2023 History of Present illness Narrative* Estrada Del Valle MD - 03/18/2022 11:48 PM EST Radiation Oncology - Follow Up Note PATIENT NAME: Celso Potts PATIENT DIAGNOSIS: Relapsed refractory Hodgkins Lymphoma (sites of active disease liver, spleen and RP nodes). Currently on Pembrolizumab 200 mg every 3 weeks started on November 09, 2019. For considerationof palliative RT to sites of active disease. S/p The Spleen Liver RP Node PTV received a total doseof 2000 cGy in 5 fractions at 400 cGy/fraction prescribed to PTV mean at 96.0% IDL using 10 MV photons with VMAT Coplanar technique. RT completed on 04/25/2020. Now has oligo progression in a single right upper mesentric LN. For abdominal re-irradiation using SBRT, 24gy/3fx. INTERVAL HISTORY: This was a VV that was done after obtaining informed consent. Ms Potts was seen today with her . She present with oligoprogression in a solitary LN in the right upper mesenteric region. The LN has grown in size and increased in SUV when compared to previous PET/CT. Currently it measures 1.3cm with an suv of 8.9, she has been referred to us for consideration of abdominal re-irradiation using SBRT techniques NM PET/CT 02/26/2022 IMPRESSION: 1. NECK: * Unchanged mildly hypermetabolic level 2 lymph nodes, likely reactive. * No new FDG avid cervical lymphadenopathy. 2. CHEST: * No new FDG avid neoplastic process. * Stable left upper lobe radiation fibrosis. * Subcentimeter left upper lobe pulmonary nodule, below the resolution of PET. Recommend continued follow-up. 3. ABDOMEN/PELVIS: * Increased size and hypermetabolism of right upper mesenteric lymph node suspicious for neoplastic process. Lesion is not amenable to percutaneous biopsy, but may be accessible endoscopically. * No new FDG avid lymphadenopathy. 4. EXTREMITIES/SKELETON: * No suspicious FDG avid osseous lesion. Deauville score: 5 (upper mesenteric node) ALLERGIES Allergen Reactions Chlorhexidine Itching Severe skin irritation. Had used for central line care Sulfa (Sulfonamide * Rash MEDICATIONS: cyclobenzaprine (FLEXERIL) 10 mg tablet^Take 1 tablet by mouth three times daily as needed.^Disp: 90 tablet^Rfl: 0 LORazepam (ATIVAN) 0.5 mg^take 1 tablet twice a day if needed and take 1 to 2 tablets by mouth at bedtime if needed^Disp: 120 tablet^Rfl: 0 oxyCODONE IR (ROXICODONE) 10 mg tab^Take 1 tablet by mouth every 4 hours as needed (moderate-severecancer pain) for up to 30 days.^Disp: 120 tablet^Rfl: 0 baclofen (LIORESAL) 5 mg tablet^Take 1 tablet by mouth three times daily.^Disp: 90 tablet^Rfl: 2 prochlorperazine (COMPAZINE) 10 mg tablet^Take 1 tablet by mouth every 6 hours as needed.^Disp: 30 tablet^Rfl: 3 gabapentin (NEURONTIN) 300 mg capsule^Take 2 capsules by mouth three times daily for 180 days.^Disp: 540 capsule^Rfl: 1 tretinoin (RETIN-A) 0.05 % cream^Apply a pea size amount to affected area every other night for 2 weeks then increase to daily as tolerated^Disp: 45 g^Rfl: 3 doxycycline monohydrate (MONODOX) 100 mg capsule^Take 1 capsule by mouth once daily.^Disp: 90 capsule^Rfl: 0 prochlorperazine (COMPAZINE) 10 mg tablet^Take 1 tablet by mouth every 6 hours as needed.^Disp: 30 tablet^Rfl: 3 (Patient not taking: No sig reported) XARELTO 10 mg tablet^take 1 tablet by mouth once daily^Disp: 90 tablet^Rfl: 3 SPIRIVA RESPIMAT 2.5 mcg/actuation inhaler^INHALE 2 PUFFS DIRECTED ONCE DAILY^Disp: 4 g^Rfl: 11 albuterol HFA (VENTOLIN HFA) 90 mcg/actuation inhaler^Inhale 2 Puffs as instructed every 4 hours asneeded for wheezing/shortness of breath.^Disp: 1 Each^Rfl: 5 acyclovir (ZOVIRAX) 400 mg tablet^take 1 tablet by mouth twice a day^Disp: 180 tablet^Rfl: 3 hydrOXYzine HCl (ATARAX) 25 mg tablet^Take 1 tablet by mouth three times daily as needed. Prescribed by PCP^Disp: ^Rfl: fluocinonide (LIDEX) 0.05 % cream^apply to affected area ON THE RIGHT HAND and legs TWICE A DAY^Disp: 120 g^Rfl: 2 chlorhexidine (HIBICLENS) 4 % external liquid^In groin as a wash^Disp: 473 mL^Rfl: 11 Clindamycin Phosphate (CLEOCIN T) 1 % lotion^To groin daily^Disp: 60 mL^Rfl: 4 naloxone 4 mg/actuation nasal spray (NARCAN)^Use 1 spray in one nostril as needed for overdose. Mayrepeat every 2 to 3 min in alternating nostrils until medical assistance is available^Disp: 1 Box^Rfl: 0 levothyroxine (SYNTHROID) 75 mcg tablet^Take 1 tablet by mouth once daily. ^Disp: ^Rfl: albuterol (PROVENTIL) 2.5 mg /3 mL (0.083 %) nebulizer solution^inhale contents of 1 vial ( 3 milliliters ) in nebulizer by mouth... (REFER TO PRESCRIPTION NOTES).^Disp: ^Rfl: triamcinolone acetonide (KENALOG) 0.1 % ointment^APPLY TO THE AFFECTED AREA TWICE A DAY FOR 5 DAYS^Disp: ^Rfl: traZODone (DESYREL) 50 mg tablet^Take 100 mg by mouth daily at bedtime. ^Disp: ^Rfl: Vitamin B Comp and C No.3 (B COMPLEX PLUS VITAMIN C) 96-37-07-5-300 mg cap^Take 1 tablet by mouth once daily.^Disp: 30 capsule^Rfl: 3 Dexlansoprazole (DEXILANT) 30 mg CpDM^Take 1 capsule by mouth once daily.^Disp: 60 capsule^Rfl: 6 Lactobac no.41/Bifidobact no.7 (PROBIOTIC-10 ORAL)^Take by mouth.^Disp: ^Rfl: atenolol (TENORMIN) 50 mg tablet^take 1 tablet by mouth twice a day^Disp: 60 tablet^Rfl: 1 CHOLECALCIFEROL, VITAMIN D3, (VITAMIN D3 ORAL)^Take 1,000 Units by mouth once daily.^Disp: ^Rfl: acetaminophen (TYLENOL) 325 mg tablet^Take 1-2 tablets by mouth every 4 hours as needed (not to exceed 2000 mg in a 24 hour period).^Disp: ^Rfl: 0 REVIEW OF SYSTEMS: GENERAL: Negative for weight loss, fevers, chills, or night sweats. HEENT: Negative for sudden vision or hearing changes. NECK: Negative for masses in the neck. RESPIRATORY: Negative for cough or shortness of breath. CARDIAC: Negative for chest pain, palpitations, murmurs, or syncopal episodes. GI: Negative for nausea, vomiting, diarrhea, constipation, blood per rectum, or melena. : Negative for dysuria, hematuria, urgency, frequency or incontinence. MUSCULOSKELETAL: Negative for limitations in movement, pain, or swelling. NEURO: Negative for dizziness, headache, weakness or numbness. HEMATOLOGIC: Negative for bleeding or easy bruising. SKIN: Negative for rashes or other skin changes. PHYSICAL EXAM: VS: LMP 11/18/2012 KPS: 100 General Appearance: Alert and oriented. No acute distress. ASSESSMENT AND PLAN: This was a VV that was done after obtaining informed consent. 41 year old withrelapsed refractory Hodgkins Lymphoma (sites of active disease liver, spleen and RP nodes). Currently on Pembrolizumab 200 mg every 3 weeks started on November 09, 2019. For consideration of palliative RT to sites of active disease. S/p The Spleen Liver RP Node PTV received a total dose of 2000 cGy in 5 fractions at 400 cGy/fraction prescribed to PTV mean at 96.0% IDL using 10 MV photons with VMAT Coplanar technique. RT completed on 04/25/2020. Now has oligo progression in a single right upper mesentric LN. For abdominal re- irradiation using SBRT, 24gy/3fx. The natural history and biology of the disease together with the rationale for radiotherapy including the risk, benefits, side effects (both acute and late) and alternatives to radiation therapy werediscussed with the patient in detail. The patient was also informed about the limitations of radiation therapy, multi- disciplinary personals involved and about the multi-stage processes in treatment planning and delivery. The patient confirmed good understanding of the entire discussion and that questions were answered to satisfaction, there-by agreeing to proceed. An informed consent was obtained, following which a radiotherapy simulation request was made. These recommendations will be communicated to the requesting physician by way of shared medical record and/or letter via U.S. Mail. Hansel for allowing us to participate in the care of this individual. I spent over 50% of a total [id number] time of 60-80 minutes, counseling/coordinating patient care. Signed by: Estrada Del Valle MD, MSc, MRCP, FRCR, DABR Radiation Oncology Staff Physician March 18, 2022 11:55 PM cc: Jose Vail [address] [place] [address] [phone] [phone] No referring provider defined for this encounter. documented in this encounterOhiohealth [facility]heastern Medical Center01-26-2023 Miscellaneous Notes* Telephone Encounter - Flori Ford RN - 03/15/2022 1:11 PM EST The following approved medication requests have been transmitted electronically. Requested Prescriptions Signed Prescriptions Disp Refills oxyCODONE IR (ROXICODONE) 10 mg tab 120 tablet 0 Sig: Take 1 tablet by mouth every 4 hours as needed (moderate-severe cancer pain) for up to 30 days. Authorizing Provider: JUAN FRANCISCO HUTCHINSON baclofen (LIORESAL) 5 mg tablet 90 tablet 2 Sig: Take 1 tablet by mouth three times daily. Authorizing Provider: JUAN FRANCISCO HUTCHINSON Notified via my chart Flori Ford RN * Telephone Encounter - Juan Francisco Hutchinson APRN.PEDRO - 03/15/2022 12:58 PM EST PDMP website checked and validated. All prescriptions have been APPROPRIATELY filled. No suspiciousactivity was identified. 03/15/2022 by Juan Francisco Hutchinson APRN.CLINICAL TRIAL DATA MANAGER Rx sent Juan Francisco Hutchinson APRN.CLINICAL TRIAL DATA MANAGER * Telephone Encounter - Flori Ford RN - 03/15/2022 12:22 PM EST Patient phones requesting refills as follows: Last pall med visit on 01/25/22, future appt 04/25/22 Both Rx's last ordered 02/15/22. Requested Prescriptions Pending Prescriptions Disp Refills oxyCODONE IR (ROXICODONE) 10 mg tab 120 tablet 0 Sig: Take 1 tablet by mouth every 4 hours as needed (moderate-severe cancer pain) for up to 30 days. baclofen (LIORESAL) 5 mg tablet 90 tablet 2 Sig: Take 1 tablet by mouth three times daily. Please review and advise. 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 (age at diagnosis 31YOF, ESR normal, WBC, Hgb, Lymph and alb normal) Previous Treatment: ABVD started on 02/11/2012 x 12 doses progressed to month after stopping treatment ICE x3 progressed after stopping treatment 3 cycles of Brentuximab Vedotin (Adcetris) followed by Auto BMT high-dose busulfan, etoposide, and cyclophosphamide with autologous hematopoietic progenitor cell transplantation in 02/2013 45 Gy in 25 fx was delivered to the mediastinal/hilar/left SC faustina regions using 6 MV photons from07/27/2013 ? 08/31/2013. Brentuximab Vedotin (Adcetris) Started 02/04/2014 stopped 2nd to neuropathy Nivolumab (Opdivo) started Nov 18 2014 stopped early 2019 Ibrutinib started early 2019. Ordered April 22, 2019 stopped nov 04 2019 Current Treatment: Pembrolizumab 200 mg every 3 weeks started on November 09, 2019 Palliative radiation to be done end of March 2020 secondary to mild progression and continue pembrolizumab after HPI: This is a 40 year old female with no significant PMH presented in August [address] in the neck and left axillary area. She was treated with multiple courses of IV antibiotics without improvement. + B symptoms (fever, drenching night sweats but no wt. loss) and itching rash in the lower exts. Left Axillary LN excisional biopsy: Nodular sclerosis classical Hodgkin lymphoma Feb [address]: IMPRESSION: FINDINGS COMPATIBLE WITH MILD RIGHT CERVICAL AND LEFT ANTERIOR SUBDIAPHRAGMATIC ADENOPATHY, MODERATE TO SEVERE HYPERMETABOLIC BILATERAL AXILLARY AND SUPRACLAVICULAR (LEFT GREATER THAN RIGHT), SUPERIOR MEDIASTINAL, RIGHT PARATRACHEAL, AND ANTERIOR MEDIASTINAL ADENOPATHY. FINDINGS SUSPICIOUS OF HYPERMETABOLIC SPLENIC LYMPHOMATOUS INVOLVEMENT. Bone Marrow Bx was negative incidental finding of pulmonary embolism on CT chest. Patient was started on Lovenox on May 27, 2012 Relapsed S/P 3 cycles of ICE with progression, S/P Brentuximab Vedotin (Adcetris) and Auto BMT Radiation to the chest complicated with Radiation pneumonitis Brentuximab Vedotin (Adcetris) stopped 2nd to grade III pneumonitis She saw Dr. Alejandro sarmiento at [facility] for 2nd opinion cell([phone]) She agreed with out plan and recommended repeat of her PET and if progressed either Opdivo vs clinical trial March 02, 2018 CT chest abdomen and pelvis mild progression of the lymph nodes in the abdomen andpelvis. PET scan was recommended Early 2018 patient was diagnosed with psoriasis (multiple 1-2 cm spots on her extremities). Patientstated rash started when we changed to every 4 weeks dosing. We'll resume every 2 weeks dosing and psoriasis is better to stable 03/13/2019 PET scan showed progression IMPRESSION: 1. NECK: * No FDG avid neoplastic process. 2. CHEST:* No FDG avid neoplastic process. 3. ABDOMEN/PELVIS:* Interval progression of retroperitoneal faustina metastatic disease with increase in size and FDG avidity of nodes/conglomerate masses in the upper abdomen since 03/08/2017. * Development of new FDG avid hepatic metastases in segments II and IVb. * FDG avid splenic lesion has increased in size and relative FDG avidity since the prior exam. 4. EXTREMITIES/SKELETON: No suspicious FDG avid osseous lesion. Deauville score: 5 Ibrutinib was orderef on 04/22/2019 PET scan October 2019 showed disease progression. Ibrutinib was stopped. Pembrolizumab was started in October 2019 PET scan March 2020 mild disease progression Palliative radiation was recommended April 2020 Palliative radiation to the spleen, liver and lymph node at main campus Interval history: patient is here for follow-up on above diagnosis her symptoms are stable. She is here to discuss the results of the PET scan and to start another cycle of palliative pembrolizumab Denies any fever, night sweats or weight loss. Her symptoms are stable PAST MEDICAL HISTORY: History of tachycardia treated with atenolol, pulmonary embolism incidentallyfound on restaging CT (May 27, 2012). 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 PHYSICAL EXAM: LMP 11/18/2012 General: NAD, ECOG PS:1 No paleness or jaundice lymph system: No lymphadenopathy in the neck. SC or axillary area BL. Heart: S1, S2, RRR Lung: CTA (BL), no wheezing or crackles Abd: No tenderness, or distension. Soft Extremities: No pitting edema, or cyanosis DATA CBC, CMP, TSH were reviewed in [facility]. PET scan report and images were reviewed in [facility]. Results werediscussed with patient and radiation oncology ASSESSMENT AND PLAN: 1. 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 Complete PET CR after 4 doses of ABVD (2 cycles). Finished 12 doses of ABVD and progressed soon after finishing treatment, 3 cycles of salvage ICE relapsed after finishing treatment before bone marrow transplant. S/P Brentuximab Vedotin (Adcetris) followed by Auto BMT. Relapsed in June 2013. chest radiation. Relapsed on January 20, 2014. Declined Allo SCT Dr. Del Valle did palliative radiation to the spleen, liver and lymph nodes Patient had PET scan August 15, 2021 1 cm no FDG avid lymph node reactive versus disease progression of Case was discussed with Dr. Del Valle radiation oncology. Consensus was to repeat another PET scan in a couple month if size or SUV worsened we will proceed with SBRT. Repeat PET scan in November 13, 2021 reported stable to slightly improved. PET scan February 22, 2022 slight increase in activity SUV in the mesenteric lymph node Case was discussed with radiation oncology who will see the patient and may consider radiation if appropriate Patient is tolerating treatment without any significant side effect. We will continue on monitor toxicity. For now we will hold palliative pembrolizumab 200 mg every 3 weeks We will continue to monitor toxicity with CMP, TSH 2. History Pulmonary embolism: recurrence after being off AC since she had her Auto transplant. Currently on xeralto and tolerating it well we will continue 3. Neuropathy: Stable continue Neurontin. 600 mg TID currently not affecting her function 4. Depression on Remeron 30 mg stable 5. History Herpes zoster continue with prophylactic dose of Acyclovir 400 mg twice daily 6. Hx PCP pneumonia: Allergic to Bactrim. Was treated with Primaquine and clindamycin follow up with Dr. Sigala ID was On dapsone for prophylaxis. stopped CD 4 continued to be above 200 8. History muscle cramps better with 2 muscle relaxant 9. Psoriasis noted diagnosis unclear if related to Nivolumab will go back to every 2 weeks regimen 10. Cancer pain continue oxycodone 5 mg 3 times daily Consult palliative medicine 11. Slightly elevated AST and ALT we will continue to monitor with CMP prior to each treatment Patient verbalized understanding and agreed with above plan Documentation from my notes of previous visit on 03/05/2022 was copied and pasted, documentation has been reviewed and edited as necessary and is current for today 03/07/2022 Cyn Ramires MD, FACP CC: Jose Parra documented in this encounterOhio[facility]12-08-2022 Instructions* Patient Instructions* Juan Francisco Hutchinson APRN.CLINICAL TRIAL DATA MANAGER - 01/25/2022 2:57 PM EST JORGE GarsiaC Department of Palliative and Supportive Care Palliative Care - Specialty services in symptom management and support For questions or prescription refills, call: [phone] Saturday - Saturday 9AM-5PM ERVIN Corrales, RN - Novelty Maker Please call 3-5 days in advance for medication refills Evenings, Weekends, Holidays: [phone] (ask for palliative medicine on-call provider) For appointments, cancellations or reschedule, call: [phone] documented in this encounterOhiohealth [facility]heastern [facility]12-08-2022 NoteHNO ID: [id number] Author: Juan Francisco Hutchinson APRN.CLINICAL TRIAL DATA MANAGER Service: ? Author Type: Nurse Practitioner Type: Progress Notes Filed: 01/25/2022 4:28 PM Note Text: PALLIATIVE MEDICINE PROGRESS NOTE SERVICE DATE: 01/25/2022 Primary Site of Disease/Medical Illness: Hodgkin Lymphoma Site of Metastasis: Liver, Lymph nodes, Spleen CHIEF COMPLAINT: pain, follow up PERTINENT MEDICAL HISTORY: Celso Potts is a 41 yo female with Hodgkin's Lymphoma diagnosed 01/16/2012 s/p autologous SCT (2013) and several other treatments due to recurrences in that time. She has undergone palliative radiation to spleen, liver, and lymph nodes per Dr. Del Valle. She is currently treated with Keytruda per Dr. Abimael Ramires. Course has been c/b pulmonary embolus (on AC). Palliative care is following for symptom control needs. Subjective Last pall care visit 10/26/21 Presents today alone. Reports feeling at her baseline and pretty well. Reports her generalized pain and muscle cramps are very controlled allowing her to be as active as possible. She continues to take the baclofen, cyclobenzaprine, and oxycodone as prescribed without confusion, oversedation, myoclonus. She is worried about weight gain and states she joined a gym on Saturday of this week and has attended Saturday and and walked on the treadmill. She will be meeting with a customer service trainer to better understand the equipment upcoming. Has had some nausea since starting doxy for acne. Responsive to Compazine. Modified ESAS (Davenport Symptom Assessment Scale) Information Provided By: Patient Pain: Mild Nausea: Mild Loss of Appetite: None Constipation: None Shortness of Breath: None Drowsiness: None Tiredness: None Depression: None Anxiety: Mild How you feel overall: Good Objective ECOG PERFORMANCE STATUS: 0- Fully active, able to carry on all pre-disease performance w/o restriction. PHYSICAL EXAMINATION: Vital signs: BP 115/67 Pulse 109 Temp 37 ?C (98.6 ?F) (Oral) Wt 106.8 kg (235 lb 8 oz) LMP 11/18/2012 SpO2 96% BMI 32.61 kg/m? Last 1 Encounter Temp Readings: Date: Temp: Temp Src: 01/18/2022 36.1 ?C (96.9 ?F) Temporal Last 1 Encounter Resp Readings: Date: Resp: 12/06/2021 18 Last 1 Encounter Pulse Readings: Date: Pulse: 01/18/2022 108 Last 1 Encounter BP Readings: Date: BP: 01/18/2022 125/86 General Appearance: No apparent distress and Overweight Skin: No jaundice, No rash, and No breakdown Lungs: unlabored effort Musculoskeletal: No edema and No gross deformity Neuro: Alert and oriented to time place and person and gait normal Psych: Well groomed, Affect congruent with mood, and Good eye contact DATA: Diagnostic tests reviewed for today's visit: Most recent labs and imaging results. Estimated Creatinine Clearance: 142.4 mL/min (based on SCr of 0.71 mg/dL). Opioid Management: Yes Indication for Opioid Prescribing: Cancer related pain ORT-OUD Score: 1 A score of 3 or higher may indicate a higher risk for future development of aberrant drug related behavior or opioid use disorder. Informed consent for chronic opiate therapy obtained and written pain agreement: On file Naloxone offered?: Previously prescribed Course of treatment, patient's response and adherence to the prescribed treatment plan reviewed, including non-pharmacological and non-opioid treatment modalities? Yes Have any complications or exacerbations of the underlying condition causing the pain been reviewed? Yes How much does pain impede patient?s ability to engage in work or other purposeful activities, interfere with your activities of daily living, physical activity, or quality of your family life and social activities? Significantly Aberrancies in pain panel? Pending Any aberrant drug related behaviors since last visit? No Rationale for continuing opioid treatment: Improved comfort and function based on an ongoing functional assessment Benefits of Opioid Therapy outweigh risks: Yes Prescribed Morphine Equivalent Daily Dose (MEDD): Yes > 50 MEDD Yes, I am certified in Hospice and Palliative Care, Hematology, Medical Oncology or Pain Medicine OARRS Checked: PDMP website checked and validated. All prescriptions have been APPROPRIATELY filled. No suspicious activity was identified. 01/25/2022 by Juan Francisco Hutchinson APRN.CLINICAL TRIAL DATA MANAGER Urine Screen Lab Results Component Value Date UAMPH Negative 02/24/2021 UBARB2 Negative 02/24/2021 UBENZ Negative 02/24/2021 UQBUPRE <20 02/24/2021 UQNORBUP <20 02/24/2021 UCOC2 Negative 02/24/2021 UQCANN <16 02/24/2021 UOPI Negative 02/24/2021 UOXYC Negative 02/24/2021 UPCP Negative 02/24/2021 UTHC Negative 02/24/2021 UETOH <11 02/24/2021 Urine Panel: Lab Results Component Value Date Cannabinoid Quant, Urine <16 02/24/2021 Benzoylecognine Quant, Urine <24 02/24/2021 6-Acetylmorphine Quant, Urine <5 02/24/2021 Amphetamine Quant, Urine <5 02/24/2021 Methamphetamine Q (more content not included)...[facility] [id number] History of Present illness Narrative* Juan Francisco Hutchinson APRN.CLINICAL TRIAL DATA MANAGER - 01/25/2022 10:55 AM EST PALLIATIVE MEDICINE PROGRESS NOTE SERVICE DATE: 01/25/2022 Primary Site of Disease/Medical Illness: Hodgkin Lymphoma Site of Metastasis: Liver, Lymph nodes, Spleen CHIEF COMPLAINT: pain, follow up PERTINENT MEDICAL HISTORY: Celso Potts is a 41 yo female with Hodgkin's Lymphoma diagnosed 01/16/2012 s/p autologous SCT (2013) and several other treatments due to recurrences in that time. She hasundergone palliative radiation to spleen, liver, and lymph nodes per Dr. Del Valle. She is currently t reated with Keytruda per Dr. Abimael Ramires. Course has been c/b pulmonary embolus (on AC). Palliative care is following for symptom control needs. Subjective Last pall care visit 10/26/21 Presents today alone. Reports feeling at her baseline and pretty well. Reports her generalized pain and muscle cramps are very controlled allowing her to be as active as possible. She continues to take the baclofen, cyclobenzaprine, and oxycodone as prescribed withoutconfusion, oversedation, myoclonus. She is worried about weight gain and states she joined a gym on Saturday of this week and has attended Saturday and and walked on the treadmill. She will be meeting with a customer service trainer to better understand the equipment upcoming. Has had some nausea since starting doxy for acne. Responsive to Compazine. Modified ESAS (D[place]port Symptom Assessment Scale) Information Provided By: Patient Pain: Mild Nausea: Mild Loss of Appetite: None Constipation: None Shortness of Breath: None Drowsiness: None Tiredness: None Depression: None Anxiety: Mild How you feel overall: Good Objective ECOG PERFORMANCE STATUS: 0- Fully active, able to carry on all pre-disease performance w/o restriction. PHYSICAL EXAMINATION: Vital signs: BP 115/67 Pulse 109 Temp 37 C (98.6 F) (Oral) Wt 106.8 kg (235 lb 8 oz) LMP 11/18/2012 SpO2 96% BMI 32.61 kg/m Last 1 Encounter Temp Readings: Date: Temp: Temp Src: 01/18/2022 36.1 C (96.9 F) Temporal Last 1 Encounter Resp Readings: Date: Resp: 12/06/2021 18 Last 1 Encounter Pulse Readings: Date: Pulse: 01/18/2022 108 Last 1 Encounter BP Readings: Date: BP: 01/18/2022 125/86 General Appearance: No apparent distress and Overweight Skin: No jaundice, No rash, and No breakdown Lungs: unlabored effort Musculoskeletal: No edema and No gross deformity Neuro: Alert and oriented to time place and person and gait normal Psych: Well groomed, Affect congruent with mood, and Good eye contact DATA: Diagnostic tests reviewed for today's visit: Most recent labs and imaging results. Estimated Creatinine Clearance: 142.4 mL/min (based on SCr of 0.71 mg/dL). Opioid Management: Yes Indication for Opioid Prescribing: Cancer related pain ORT-OUD Score: 1 A score of 3 or higher may indicate a higher risk for future development of aberrant drug related behavior or opioid use disorder. Informed consent for chronic opiate therapy obtained and written pain agreement: On file Naloxone offered?: Previously prescribed Course of treatment, patient's response and adherence to the prescribed treatment plan reviewed, including non-pharmacological and non-opioid treatment modalities? Yes Have any complications or exacerbations of the underlying condition causing the pain been reviewed?Yes How much does pain impede patient s ability to engage in work or other purposeful activities, interfere with your activities of daily living, physical activity, or quality of your family life and social activities? Significantly Aberrancies in pain panel? Pending Any aberrant drug related behaviors since last visit? No Rationale for continuing opioid treatment: Improved comfort and function based on an ongoing functional assessment Benefits of Opioid Therapy outweigh risks: Yes Prescribed Morphine Equivalent Daily Dose (MEDD): Yes > 50 MEDD Yes, I am certified in Hospice and Palliative Care, Hematology, Medical Oncology or Pain Medicine OARRS Checked: PDMP website checked and validated. All prescriptions have been APPROPRIATELY filled. No suspiciousactivity was identified. 01/25/2022 by Juan Francisco Hutchinson APRN.CLINICAL TRIAL DATA MANAGER Urine Screen Lab Results Component Value Date UAMPH Negative 02/24/2021 UBARB2 Negative 02/24/2021 UBENZ Negative 02/24/2021 UQBUPRE <20 02/24/2021 UQNORBUP <20 02/24/2021 UCOC2 Negative 02/24/2021 UQCANN <16 02/24/2021 UOPI Negative 02/24/2021 UOXYC Negative 02/24/2021 UPCP Negative 02/24/2021 UTHC Negative 02/24/2021 UETOH <11 02/24/2021 Urine Panel: Lab Results Component Value Date Cannabinoid Quant, Urine <16 02/24/2021 Benzoylecognine Quant, Urine <24 02/24/2021 6-Acetylmorphine Quant, Urine <5 02/24/2021 Amphetamine Quant, Urine <5 02/24/2021 Methamphetamine Quant, Urine <8 02/24/2021 Buprenorphine Quant, Urine <20 02/24/2021 Norbuprenorphine Quant, Urine <20 02/24/2021 Methadone Quant, Urine <16 02/24/2021 EDDP Quant, Urine <6 02/24/2021 Tramadol Quant, Urine <25 02/24/2021 Desmethyltramadol Quant, Urine <20 02/24/2021 Fentanyl Quant, Urine <6 02/24/2021 Norfentanyl Quant, Urine <6 02/24/2021 Codeine Quant, Urine <11 02/24/2021 Morphine Quant, Urine <10 02/24/2021 Dihydrocodeine Quant, Urine <5 02/24/2021 Hydrocodone Quant, Urine <8 02/24/2021 Oxycodone Quant, Urine <10 02/24/2021 Hydromorphone Quant, Urine <5 02/24/2021 Oxymorphone Quant, Urine <5 02/24/2021 Creatinine,Ur Pain [place]cas[place] 70.2 02/24/2021 Urine pH, Pain Ocasio 6.3 02/24/2021 Specific [place],Ur Pain Ocasio 1.012 02/24/2021 Oxidants,Ur 46 02/24/2021 Specimen Quality, Ur Pain Ocasio Specimen quality results within acceptable limits. 05/03/2014 Assessment & Plan (Z51.5) Encounter for palliative care (primary encounter diagnosis) - reviewed role of palliative care, contact info, and reasons to call. 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 Ramires (G89.3) Cancer related pain - nociceptive somatic pain associated to prior radiation effects c/b joint pain associated to psoriatic arthritis - exacerbated by immunotherapy - managed well presently - continue oxycodone 10 mg Q4H PRN - continue gabapentin 600 mg TID - consider addition of duloxetine if worsening - suggest rheumatology involvement (R25.2) Muscle cramps - much improved and well controlled - continue baclofen 10 mg TID - continue cyclobenzaprine 10 mg TID PRN (F41.9) Anxiety - long standing problem - increases when scans are due (getting Q6 months) - current medications managed per PCP including atarax and ativan - highly encouraged establishing with counselor - she currently does not want to do this due to number of appointments. - would advise addition of SSRI or SNRI (Cymbalta) if persisting. Some elements copied from my note on 10/26/21, the elements have been updated and all reflect currentdecision making from today, 01/25/2022. Medical Decision Making: Problems: Moderate: 1+ chronic illnesses with change Risk: High: Drug therapy requiring intensive monitoring Medical Decision Making Level: 4 - Moderate Next Visit: 3 Months in person Juan Francisco Hutchinson APRN.CNP January 25, 2022 10:55 AM documented in this encounterOhio[facility]12-05-2022 Miscellaneous Notes* Telephone Encounter - Kylie Mosher RN - 01/22/2022 10:54 AM EST Pharmacy requesting refills as follows: Next pm f/u appt 01/25/2022 Requested Prescriptions Pending Prescriptions Disp Refills baclofen (LIORESAL) 5 mg tablet [Pharmacy Med Name: BACLOFEN 5 MG TABLET] 90 tablet 2 Sig: take 1 tablet by mouth three times a day Please review and advise. Kylie Mosher RN documented in this encounterOhiohealth [facility]11-30-2022 Miscellaneous Notes* Telephone Encounter - Gunjan Joya LPN - 01/17/2022 9:10 AM EST Spoke with patient, rescheduled appt for tomorrow documented in this encounterOhiohealth [facility]11-29-2022 Miscellaneous Notes* Telephone Encounter - Juan Francisco Hutchinson APRN.PEDRO - 01/16/2022 2:34 PM EST PDMP website checked and validated. All prescriptions have been APPROPRIATELY filled. No suspiciousactivity was identified. 01/16/2022 by Juan Francisco Hutchinson APRN.CLINICAL TRIAL DATA MANAGER Rx sent Juan Francisco Hutchinson APRN.CLINICAL TRIAL DATA MANAGER * Telephone Encounter - Kristina Pete RN - 01/16/2022 12:48 PM EST Patient phones requesting refills as follows: Requested Prescriptions Pending Prescriptions Disp Refills oxyCODONE IR (ROXICODONE) 10 mg tab 120 tablet 0 Sig: Take 1 tablet by mouth every 4 hours as needed (moderate-severe cancer pain) for up to 30 days. Please review and advise. Kristina Pete RN documented in this encounterOhiohealth [facility]11-15-2022 Miscellaneous Notes* Telephone Encounter - Caro Srinivasan RN - 01/02/2022 3:41 PM EST [facility] Care Coordination FOLLOW-UP NOTE Patient identified by name and date of . YES Spoke to voicemail-full so unable to leave message x2 Summary: (Reason for follow-up) Chest tightness Pulmonary f/u needed Echocardiogram needed Concerns: (New Barriers to care) Caro Srinivasan RN January 02, 2022 documented in this encounterOhiohealth [facility]11-09-2022 History of Present illness Narrative* Sylvia Mancilla APRN.CLINICAL TRIAL DATA MANAGER - 12/27/2021 9:30 AM EST Oncology Progress Note December 27, 2021 Diagnosis: Recurrent HL, initially Stage IIIb, Nodular sclerosis classical Hodgkin lymphoma diagnosed on 01/16/2012. (age at diagnosis 31YOF, ESR normal, WBC, Hgb, Lymph and alb normal) Previous Treatment: ABVD started on 02/11/2012 x 12 doses progressed to month after stopping treatment ICE x3 progressed after stopping treatment 3 cycles of Brentuximab Vedotin (Adcetris) followed by Auto BMT high-dose busulfan, etoposide, and cyclophosphamide with autologous hematopoietic progenitor cell transplantation in 02/2013 45 Gy in 25 fx was delivered to the mediastinal/hilar/left SC faustina regions using 6 MV photons from07/27/2013 ? 08/31/2013. Brentuximab Vedotin (Adcetris) Started 02/04/2014 stopped 2nd to neuropathy Nivolumab (Opdivo) started Nov 18 2014 stopped early 2019 Ibrutinib started early 2019. Ordered April 22, 2019 stopped nov 04 2019 Current Treatment: Pembrolizumab 200 mg every 3 weeks started on November 09, 2019 Palliative radiation to be done end of March 2020 secondary to mild progression and continue pembrolizumab after HPI: This is a 41 year old female with no significant PMH presented in August [address] in the neck and left axillary area. She was treated with multiple courses of IV antibiotics without improvement. + B symptoms (fever, drenching night sweats but no wt. loss) and itching rash in the lower exts. Left Axillary LN excisional biopsy: Nodular sclerosis classical Hodgkin lymphoma Feb [address]: IMPRESSION: FINDINGS COMPATIBLE WITH MILD RIGHT CERVICAL AND LEFT ANTERIOR SUBDIAPHRAGMATIC ADENOPATHY, MODERATE TO SEVERE HYPERMETABOLIC BILATERAL AXILLARY AND SUPRACLAVICULAR (LEFT GREATER THAN RIGHT), SUPERIOR MEDIASTINAL, RIGHT PARATRACHEAL, AND ANTERIOR MEDIASTINAL ADENOPATHY. FINDINGS SUSPICIOUS OF HYPERMETABOLIC SPLENIC LYMPHOMATOUS INVOLVEMENT. Bone Marrow Bx was negative incidental finding of pulmonary embolism on CT chest. Patient was started on Lovenox on May 27, 2012 Relapsed S/P 3 cycles of ICE with progression, S/P Brentuximab Vedotin (Adcetris) and Auto BMT Radiation to the chest complicated with Radiation pneumonitis Brentuximab Vedotin (Adcetris) stopped 2nd to grade III pneumonitis She saw Dr. Alejandro sarmiento at [facility] for 2nd opinion cell([phone]) She agreed with out plan and recommended repeat of her PET and if progressed either Opdivo vs clinical trial March 02, 2018 CT chest abdomen and pelvis mild progression of the lymph nodes in the abdomen andpelvis. PET scan was recommended Early 2018 patient was diagnosed with psoriasis (multiple 1-2 cm spots on her extremities). Patientstated rash started when we changed to every 4 weeks dosing. We'll resume every 2 weeks dosing and psoriasis is better to stable 03/13/2019 PET scan showed progression IMPRESSION: 1. NECK: * No FDG avid neoplastic process. 2. CHEST:* No FDG avid neoplastic process. 3. ABDOMEN/PELVIS:* Interval progression of retroperitoneal faustina metastatic disease with increase in size and FDG avidity of nodes/conglomerate masses in the upper abdomen since 03/08/2017. * Development of new FDG avid hepatic metastases in segments II and IVb. * FDG avid splenic lesion has increased in size and relative FDG avidity since the prior exam. 4. EXTREMITIES/SKELETON: No suspicious FDG avid osseous lesion. Deauville score: 5 Ibrutinib was orderef on 04/22/2019 PET scan October 2019 showed disease progression. Ibrutinib was stopped. Pembrolizumab was started in October 2019 PET scan March 2020 mild disease progression Palliative radiation was recommended April 2020 Palliative radiation to the spleen, liver and lymph node at main campus Interval history: Ms. Potts presents for follow up and C#34 pembro. S/p PET CT 11/13/21. Scheduled for PET 02/26/21. Reports that over the past few weeks, her breathing has gotten a little worse. Pulm follows her forrestrictive lung disease. She feels it is more restrictive and tight lately. Has a chronic cough- this is not new but she is now noticing it is more productive. Has thick green sticky mucus for the past couple of months but this is worsening. Was present even prior to Covid. Has tried Mucinex and Zyrtec which hasn't been helpful. Using Ventolin inhaler and nebulizer as instructed. Saw pulm in April. No fevers or chills. Doesn't feel sick but definitely notices a difference. Had these symptoms in Oct when she had the PET CT but does feel it is more progressive since then. The chest tightness and chest pain have been present since radiation but worsening. More like an ache and tightness than a pain. Takes Xarelto with dinner and does not skip/forget doses. PAST MEDICAL HISTORY: History of tachycardia treated with atenolol, pulmonary embolism incidentallyfound on restaging CT (May 27, 2012). 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 PHYSICAL EXAM: BP 116/74 Pulse 103 Temp 36.4 C (97.5 F) (Oral) Wt 105 kg (231 lb 8 oz) LMP 11/18/2012 SpO2 98% BMI 32.05 kg/m ECOG PS: 0 General: Alert, oriented x 3. NAD. Non-toxic appearing. Well-nourished. HEENT: No scleral icterus. Heart: HRR s1s2 Lungs: Lungs CTA, no wheezing, rales, rhonchi or crackles ,non-labored breathing. Abdominal: Abd soft, NT, ND. Extremities: No edema or cyanosis. Skin: No rashes, bruising, or petechiae. Neuro: Non-focal exam without deficits. DATA CBC, CMP and TSH, sed rate were reviewed in [facility]. ASSESSMENT AND PLAN: 1. 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 Complete PET CR after 4 doses of ABVD (2 cycles). Finished 12 doses of ABVD and progressed soon after finishing treatment, 3 cycles of salvage ICE relapsed after finishing treatment before bone marrow transplant. S/P Brentuximab Vedotin (Adcetris) followed by Auto BMT. Relapsed in June 2013. chest radiation. Relapsed on January 20, 2014. Declined Allo SCT Dr. Del Valle did palliative radiation to the spleen, liver and lymph nodes Patient had another PET scan August 15, 2021 1 cm no FDG avid lymph node reactive versus disease progression Case was discussed with Dr. Del Valle radiation oncology. We will repeat another PET scan in a couplemonth if size or SUV worsened we will proceed with SBRT. Repeat PET scan in November 13, 2021 reported stable to slightly improved. We will continue to monitor with another PET scan in 3 months Continue with palliative pembrolizumab 200 mg every 3 weeks We will continue to monitor toxicity with CMP, TSH, cortisol 2. History Pulmonary embolism: recurrence after being off AC since she had her Auto transplant. Currently on xeralto and tolerating it well we will continue 3. Neuropathy: Stable continue Neurontin. 600 mg TID currently not affecting her function 4. Depression on Remeron 30 mg stable 5. History Herpes zoster continue with prophylactic dose of Acyclovir 400 mg twice daily 6. Hx PCP pneumonia: Allergic to Bactrim. Was treated with Primaquine and clindamycin follow up with Dr. Sigala ID was On dapsone for prophylaxis. stopped CD 4 continued to be above 200 8. Muscle cramps better with Flexeril. Left knee pain and swelling saw orthopedic no benefit. Referto rheumatology 9. Psoriasis noted diagnosis unclear if related to Nivolumab will go back to every 2 weeks regimen 10. Cancer pain continue oxycodone 5 mg 3 times daily Consult palliative medicine 11. Slightly elevated AST and ALT we will continue to monitor with CMP prior to each treatment Stable to improved. Unlikely immune related. 12. JOE, chest tightness, with productive cough - As described in HPI, patient with increased chest tightness, JOE, cough, and thick green mucus. Has been ongoing for months-years but more progressive in 2+ months. Physical exam is normal. VS are at baseline, HRR, lungs clear with good air movement, non-labored breathing. Patient appears well and at her baseline. - This has been chronic for the patient since she has received radiation to her chest (remotely) but has been progressively worsening over the past couple of months. - Pt follows with pulm for restrictive lung disease. Has hx of PJP pneumonia. Uses her inhalers appropriately. Has not seen pulm since April. - Her symptoms were present during recent PET CT 10/2021 but have continued to worsen. The sx are not acutely worsening but have been progressive over past 2+ months. - Does not seem to be acute like infection but patient does have green mucus. She has been taking daily Doxy for her acne. She could try a week of bid dosing but I am not sure that will be helpful. - Unlikely to be PE but could consider CTA chest. Pt has been compliant with Eliquis. - Given radiation to chest and prior cardiotoxic chemotherapies, would be prudent to re-check echocardiogram. I have ordered this for her. - I offered to order patient a STAT CT chest PE or at least a CXR today to re- evaluate her lungs. She does not feel that updated imaging will be helpful. - Pt agreeable to echo. She will also reach out for a pulmonology appointment. I reviewed with her when she should go to ED with new/worsening sx. Has repeat PET CT scheduled 02/26/22. Spent 20 minutes assessing patient's sx as noted above. Patient understands my recommendations for further workup although her sx are not acute/new. I would also like her to follow up with pulmonology. Patient verbalized understanding and agreed with above plan This note was copied from prior heme/onc encounter from 10/25/21. The patient's medications, allergies, past medical/surgical hx, family hx, ROS, and physical exam have all been reviewed and updated asappropriate. The interval history and assessment/plan content have been modified and are specific to today's (December 31, 2021) purpose for the visit. Sylvia Mancilla APRN.CLINICAL TRIAL DATA MANAGER Hematology/Oncology Janae Ortiz/ [facility] [phone] CC: Jose Parra documented in this encounterOhiohealth [facility]heastern Medical Center10-31-2022 Miscellaneous Notes* Telephone Encounter - Cheryl Guerrero APRN.CNP - 12/18/2021 8:48 AM EDT Refill sent PDMP website checked and validated. All prescriptions have been APPROPRIATELY filled. No suspiciousactivity was identified. 12/18/2021 by Cheryl Guerrero APRN.PEDRO * Telephone Encounter - Kylie Mosher RN - 12/18/2021 8:38 AM EDT Patient phones requesting refills as follows: Last PM appt 10/26/2021 Needs f/u appt scheduled. Requested Prescriptions Pending Prescriptions Disp Refills oxyCODONE IR (ROXICODONE) 10 mg tab 120 tablet 0 Sig: Take 1 tablet by mouth every 4 hours as needed (moderate-severe cancer pain) for up to 30 days. Please review and advise. Kylie Mosher RN documented in this encounterOhiohealth Southeastern Medical Center10-20-2022 Instructions* Patient Instructions* Nova Bridges APRN.PEDRO - 12/07/2021 9:25 AM EDT Acne - chronic inflammatory condition - involves multiple factors including increased sebum production, follicular hyperkeratinization, proliferation of bacteria and inflammation - often resolves after teenage years but can persist into adulthood Management: - Use Benzoyl Peroxide 10% Wash (in the shower) once daily in the morning. Discussed this can bleach linens, clothing and towels. - Moisturizing wash once daily in the evening - avoid scrubs, brushes, astringents and other potentially abrasive cleaning products - moisturizers and cosmetics should be non comedogenic or oil free - avoid popping and picking at all times Treatment: - Tretinoin (RETIN-A) 0.05 % topical cream pea size to full dry face at bedtime avoiding eyes. Discussed to start slowly and progress as tolerated to prevent over drying, irritation and peeling. - Doxycycline 100 mg once daily x 3 months. - R/B/O of medications discussed including potential and expected side effects - control methods should be used while on medications, STOP medications prior to asmost can cause defects. - Allow 3 months to start seeing improvements in acne Hydrocortisone topically under eye as needed documented in this encounterOhiohealth Southeastern Medical Center10-20-2022 History of Present illness Narrative* Nova Bridges APRN.CNP - 12/07/2021 9:15 AM EDT SKIN EXAM ESTABLISHED LAST OFFICE VISIT: 09/05/2021 CC: This patient is a 41 year old female. Patient presents with: Acne HPI: Location: face, posterior neck Appearance (size, shape, color): acne, white bumps, occasionally become red and irritated Duration: ongoing Symptoms (growing, itching, bleeding, tender): worsening, will ooze fluid at times Treatments: None Washing face with Dial soap Bumps are constant and it never goes away, has only gotten worse History of hidradenitis, using topical Clindamycin in those areas -Personal history of skin cancer: No -History of blistering sunburns:Yes -Family history of skin cancer: No SOC: Social History Tobacco Use Smoking status: Former Years: 10.00 Types: Cigarettes Quit date: 01/18/2012 Years since quittin.8 Smokeless tobacco: Never Vaping Use Vaping Use: Never used Substance Use Topics Alcohol use: Yes Alcohol/week: 0.0 standard drinks Comment: 2 drinks per month Drug use: No MEDS: Current outpatient prescriptions: Current Outpatient Medications on File Prior to Visit Medication Sig prochlorperazine (COMPAZINE) 10 mg tablet take 1 tablet by mouth every 6 hours if needed gabapentin (NEURONTIN) 300 mg capsule Take 2 capsules by mouth three times daily for 180 days. prochlorperazine (COMPAZINE) 10 mg tablet Take 1 tablet by mouth every 6 hours as needed. XARELTO 10 mg tablet take 1 tablet by mouth once daily LORazepam (ATIVAN) 0.5 mg take 1 tablet twice a day if needed and take 1 to 2 tablets by mouth at bedtime if needed oxyCODONE IR (ROXICODONE) 10 mg tab Take 1 tablet by mouth every 4 hours as needed (moderate-severecancer pain) for up to 30 days. cyclobenzaprine (FLEXERIL) 10 mg tablet Take 1 tablet by mouth three times daily as needed. baclofen (LIORESAL) 5 mg tablet take 1 tablet by mouth three times a day SPIRIVA RESPIMAT 2.5 mcg/actuation inhaler INHALE 2 PUFFS DIRECTED ONCE DAILY albuterol HFA (VENTOLIN HFA) 90 mcg/actuation inhaler Inhale 2 Puffs as instructed every 4 hours asneeded for wheezing/shortness of breath. acyclovir (ZOVIRAX) 400 mg tablet take 1 tablet by mouth twice a day fluocinonide (LIDEX) 0.05 % cream apply to affected area ON THE RIGHT HAND and legs TWICE A DAY chlorhexidine (HIBICLENS) 4 % external liquid In groin as a wash Clindamycin Phosphate (CLEOCIN T) 1 % lotion To groin daily naloxone 4 mg/actuation nasal spray (NARCAN) Use 1 spray in one nostril as needed for overdose. Mayrepeat every 2 to 3 min in alternating nostrils until medical assistance is available levothyroxine (SYNTHROID) 75 mcg tablet Take 1 tablet by mouth once daily. albuterol (PROVENTIL) 2.5 mg /3 mL (0.083 %) nebulizer solution inhale contents of 1 vial ( 3 milliliters ) in nebulizer by mouth... (REFER TO PRESCRIPTION NOTES). triamcinolone acetonide (KENALOG) 0.1 % ointment APPLY TO THE AFFECTED AREA TWICE A DAY FOR 5 DAYS traZODone (DESYREL) 50 mg tablet Take 100 mg by mouth daily at bedtime. Dexlansoprazole (DEXILANT) 30 mg CpDM Take 1 capsule by mouth once daily. Lactobac no.41/Bifidobact no.7 (PROBIOTIC-10 ORAL) Take by mouth. atenolol (TENORMIN) 50 mg tablet take 1 tablet by mouth twice a day CHOLECALCIFEROL, VITAMIN D3, (VITAMIN D3 ORAL) Take 1,000 Units by mouth once daily. acetaminophen (TYLENOL) 325 mg tablet Take 1-2 tablets by mouth every 4 hours as needed (not to exceed 2000 mg in a 24 hour period). hydrOXYzine HCl (ATARAX) 25 mg tablet Take 1 tablet by mouth three times daily as needed. Prescribed by PCP Vitamin B Comp and C No.3 (B COMPLEX PLUS VITAMIN C) [id number] mg cap Take 1 tablet by mouth once daily. No current facility-administered medications on file prior to visit. ALLERGY: ALLERGIES Allergen Reactions Chlorhexidine Itching Severe skin irritation. Had used for central line care Sulfa (Sulfonamide * Rash REVIEW OF SYSTEMS: Patient feels well and denies any recent fevers, chills, or nightsweats. PHYSICAL EXAM: The patient is a pleasant female in no distress. Patient appears healthy, well developed, well nourished and in otherwise good health. Alert and oriented x 3. A skin exam was done of the face and neck. Smith Skin Type: I IMPRESSION: Face with scattered erythematous papules, open comedones and closed comedones A/P: (L70.0) Acne vulgaris (primary encounter diagnosis) - chronic inflammatory condition - involves multiple factors including increased sebum production, follicular hyperkeratinization, proliferation of bacteria and inflammation - often resolves after teenage years but can persist into adulthood Management: - Use Benzoyl Peroxide 10% Wash (in the shower) once daily in the morning. Discussed this can bleach linens, clothing and towels. Moisturizing wash once daily in the evening - avoid scrubs, brushes, astringents and other potentially abrasive cleaning products - moisturizers and cosmetics should be non comedogenic or oil free - avoid popping and picking at all times Treatment: - Tretinoin (RETIN-A) 0.05 % topical cream pea size to full dry face at bedtime avoiding eyes. Discussed to start slowly and progress as tolerated to prevent over drying, irritation and peeling. - Doxycycline 100 mg once daily x 3 months. - R/B/O of medications discussed including potential and expected side effects - control methods should be used while on medications, STOP medications prior to asmost can cause defects. - Allow 3 months to start seeing improvements in acne Follow up in 3 months with progress The patient is seen and examined by Nova Bridges CNP and the following reflects his/her service. Scribed by Marilyn Allne LPN I agree with the Chief Complaint, ROS, and Past Histories independently gathered by the clinical it application support analyst and the remaining scribed note accurately describes my personal service to the patient. Nova Bridges APRN.CNP December 07, 2021 9:39 AM I spent a total of 25 minutes on the date of the service which included [id number] patient care, completing clinical documentation, performing a medically appropriate examination, counseling and educating the patient/family/caregiver, and ordering medications, tests, or procedures. 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 (age at diagnosis 31YOF, ESR normal, WBC, Hgb, Lymph and alb normal) Previous Treatment: ABVD started on 02/11/2012 x 12 doses progressed to month after stopping treatment ICE x3 progressed after stopping treatment 3 cycles of Brentuximab Vedotin (Adcetris) followed by Auto BMT high-dose busulfan, etoposide, and cyclophosphamide with autologous hematopoietic progenitor cell transplantation in 02/2013 45 Gy in 25 fx was delivered to the mediastinal/hilar/left SC faustina regions using 6 MV photons from07/27/2013 ? 08/31/2013. Brentuximab Vedotin (Adcetris) Started 02/04/2014 stopped to neuropathy Nivolumab (Opdivo) started Nov 18 2014 stopped 2019 Ibrutinib started early 2019. Ordered April 22, 2019 stopped nov 04 2019 Current Treatment: Pembrolizumab 200 mg every 3 weeks started on November 09, 2019 Palliative radiation to be done end of March 2020 secondary to mild progression and continue pembrolizumab after HPI: This is a 40 year old female with no significant PMH presented in August [address] in the neck and left axillary area. She was treated with multiple courses of IV antibiotics without improvement. + B symptoms (fever, drenching night sweats but no wt. loss) and itching rash in the lower exts. Left Axillary LN excisional biopsy: Nodular sclerosis classical Hodgkin lymphoma Feb [address]: IMPRESSION: FINDINGS COMPATIBLE WITH MILD RIGHT CERVICAL AND LEFT ANTERIOR SUBDIAPHRAGMATIC ADENOPATHY, MODERATE TO SEVERE HYPERMETABOLIC BILATERAL AXILLARY AND SUPRACLAVICULAR (LEFT GREATER THAN RIGHT), SUPERIOR MEDIASTINAL, RIGHT PARATRACHEAL, AND ANTERIOR MEDIASTINAL ADENOPATHY. FINDINGS SUSPICIOUS OF HYPERMETABOLIC SPLENIC LYMPHOMATOUS INVOLVEMENT. Bone Marrow Bx was negative incidental finding of pulmonary embolism on CT chest. Patient was started on Lovenox on May 27, 2012 Relapsed S/P 3 cycles of ICE with progression, S/P Brentuximab Vedotin (Adcetris) and Auto BMT Radiation to the chest complicated with Radiation pneumonitis Brentuximab Vedotin (Adcetris) stopped 2nd to grade III pneumonitis She saw Dr. Alejandro sarmiento at [facility] for 2nd opinion cell([phone]) She agreed with out plan and recommended repeat of her PET and if progressed either Opdivo vs clinical trial March 02, 2018 CT chest abdomen and pelvis mild progression of the lymph nodes in the abdomen andpelvis. PET scan was recommended Early 2018 patient was diagnosed with psoriasis (multiple 1-2 cm spots on her extremities). Patientstated rash started when we changed to every 4 weeks dosing. We'll resume every 2 weeks dosing and psoriasis is better to stable 03/13/2019 PET scan showed progression IMPRESSION: 1. NECK: * No FDG avid neoplastic process. 2. CHEST:* No FDG avid neoplastic process. 3. ABDOMEN/PELVIS:* Interval progression of retroperitoneal faustina metastatic disease with increase in size and FDG avidity of nodes/conglomerate masses in the upper abdomen since 03/08/2017. * Development of new FDG avid hepatic metastases in segments II and IVb. * FDG avid splenic lesion has increased in size and relative FDG avidity since the prior exam. 4. EXTREMITIES/SKELETON: No suspicious FDG avid osseous lesion. Deauville score: 5 Ibrutinib was orderef on 04/22/2019 PET scan October 2019 showed disease progression. Ibrutinib was stopped. Pembrolizumab was started in October 2019 PET scan March 2020 mild disease progression Palliative radiation was recommended April 2020 Palliative radiation to the spleen, liver and lymph node at main campus Interval history: Patient is here for follow-up on above diagnosis. Also to discuss the results of PET scan and discuss the treatment option. She is tolerating pembrolizumab well without any significant side effect and no change in her symptoms. PAST MEDICAL HISTORY: History of tachycardia treated with atenolol, pulmonary embolism incidentallyfound on restaging CT (May 27, 2012). 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 PHYSICAL EXAM: BP 118/77 Pulse 100 Temp 37.1 C (98.7 F) (Oral) Ht 181 cm (5' 11.26 ) Wt 102.8 kg (226 lb 9.6 oz) LMP 11/18/2012 SpO2 98% BMI 31.37 kg/m General: NAD, ECOG PS:1 No paleness or jaundice lymph system: No lymphadenopathy in the neck. SC or axillary area BL. Heart: S1, S2, RRR Lung: CTA (BL), no wheezing or crackles Abd: No tenderness, or distension. Soft Extremities: No pitting edema, or cyanosis DATA CBC, CMP and TSH, sed rate were reviewed in [facility]. ASSESSMENT AND PLAN: 1. 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 Complete PET CR after 4 doses of ABVD (2 cycles). Finished 12 doses of ABVD and progressed soon after finishing treatment, 3 cycles of salvage ICE relapsed after finishing treatment before bone marrow transplant. S/P Brentuximab Vedotin (Adcetris) followed by Auto BMT. Relapsed in June 2013. chest radiation. Relapsed on January 20, 2014. Declined Allo SCT Dr. Del Valle did palliative radiation to the spleen, liver and lymph nodes Patient had another PET scan August 15, 2021 1 cm no FDG avid lymph node reactive versus disease progression ofCase was discussed with Dr. Del Valle radiation oncology. We will repeat another PET scan minnie couple month if size or SUV worsened we will proceed with SBRT. Repeat PET scan in November 13, 2021 reported stable to slightly improved. We will continue to monitor with another PET scan in 3 months Patient is tolerating treatment without any significant side effect. We will continue on monitor toxicity. Continue with palliative pembrolizumab 200 mg every 3 weeks We will continue to monitor toxicity with CMP, TSH 2. History Pulmonary embolism: recurrence after being off AC since she had her Auto transplant. Currently on xeralto and tolerating it well we will continue 3. Neuropathy: Stable continue Neurontin. 600 mg TID currently not affecting her function 4. Depression on Remeron 30 mg stable 5. History Herpes zoster continue with prophylactic dose of Acyclovir 400 mg twice daily 6. Hx PCP pneumonia: Allergic to Bactrim. Was treated with Primaquine and clindamycin follow up with Dr. Sigala ID was On dapsone for prophylaxis. stopped CD 4 continued to be above 200 8. History muscle cramps better with 2 muscle relaxant 9. Psoriasis noted diagnosis unclear if related to Nivolumab will go back to every 2 weeks regimen 10. Cancer pain continue oxycodone 5 mg 3 times daily Consult palliative medicine 11. Slightly elevated AST and ALT we will continue to monitor with CMP prior to each treatment Patient verbalized understanding and agreed with above plan Documentation from my notes of previous visit on 08/16/2021 was copied and pasted, documentation has been reviewed and edited as necessary and is current for today 11/15/2021 Cyn Ramires MD, FACP CC: Jose Parra documented in this encounterOhiohealth [facility]heastern Medical Center09-26-2022 Miscellaneous Notes* Telephone Encounter - Jeny Nava RN - 11/13/2021 8:35 AM EDT I have pended a CBC for Celso that she requested with her other labs. Please sign if agreeable. Thank you, MAE Valentin [facility] documented in this encounterOhiohealth Southeastern Medical Center09-08-2022 NoteHNO ID: [id number] Author: Juan Francisco Hutchinson APRN.PEDRO Service: ? Author Type: Nurse Practitioner Type: Progress Notes Filed: 10/26/2021 2:43 PM Note Text: PALLIATIVE MEDICINE PROGRESS NOTE SERVICE DATE: 10/26/2021 Primary Site of Disease/Medical Illness: Hodgkin Lymphoma Site of Metastasis: Liver, Lymph nodes, Spleen CHIEF COMPLAINT: follow up for pain PERTINENT MEDICAL HISTORY: Celso Potts is a 41 yo female with Hodgkin's Lymphoma diagnosed 01/16/2012 s/p autologous SCT (2013) and several other treatments due to recurrences in that time. She has undergone palliative radiation to spleen, liver, and lymph nodes per Dr. Del Valle. She is currently treated with Keytruda per Dr. Abimael Ramires. Course has been c/b pulmonary embolus (on AC). Palliative care is following for symptom control needs. Subjective Last pall care with [facility] visit 08/02. Referred to [facility] due to proximity of home. Did not go well. Now back for follow up for symptom control. Recovered from COVID in September PET/CT 08/15/[address] in neck and mesentery - will have repeat PET upcoming to evaluate. Continued on same treatment per oncology. Presents today alone. Reports she has been doing about the same but is nervous about what the upcoming PET scan will show. Modified ESAS ([place] Symptom Assessment Scale) Information Provided By: Patient Pain: continues to have generalized arthralgias and myalgias which interfere with mobility and productivity during the day. These are well controlled with oxycodone PRN. Also with muscle spasms which can happen at various locations on her body and worse/more often when she has more activity (she has been doing metal detecting with her father recently) but these are very well controlled as long as she takes baclofen as prescribed. Using flexeril PRN. Denies confusion oversedation myoclonsu Nausea: occurring in the morning, resolves with dose of compazine PRN Loss of Appetite: None Constipation: none Shortness of Breath: None Drowsiness: None Tiredness: more tired recently due to new sleep issues. She falls asleep well after taking ativan and trazodone but wakes several times and doesn't go back to sleep. Doesn't nap during day to avoid trouble sleeping. Depression: Mild Anxiety: Mild How you feel overall: Good Objective ECOG PERFORMANCE STATUS: 0- Fully active, able to carry on all pre-disease performance w/o restriction. PHYSICAL EXAMINATION: Vital signs: BP 117/88 Pulse 100 Temp 36.5 ?C (97.7 ?F) Wt 103 kg (227 lb) LMP 11/18/2012 SpO2 97% BMI 30.79 kg/m? Last 1 Encounter Temp Readings: Date: Temp: Temp Src: 10/25/2021 36.8 ?C (98.2 ?F) Oral Last 1 Encounter Resp Readings: Date: Resp: 09/20/2021 23 Last 1 Encounter Pulse Readings: Date: Pulse: 10/25/2021 102 Last 1 Encounter BP Readings: Date: BP: 10/25/2021 112/87 General Appearance: No apparent distress and well nourished Skin: No jaundice, No rash, and No breakdown Lungs: unlabored effort, no conversational dyspnea CV: no BLE edema Musculoskeletal: No gross deformity Neuro: Alert and oriented to time place and person and gait normal Psych: Well groomed, Affect congruent with mood, and Good eye contact DATA: Diagnostic tests reviewed for today's visit: Most recent labs and imaging results. Estimated Creatinine Clearance: 144.8 mL/min (based on SCr of 0.7 mg/dL). Opioid Management: Yes Indication for Opioid Prescribing: Chronic, Non-cancer pain ORT-OUD Score: 2 A score of 3 or higher may indicate a higher risk for future development of aberrant drug related behavior or opioid use disorder. Informed consent for chronic opiate therapy obtained and written pain agreement: On file Naloxone offered?: Previously prescribed Course of treatment, patient's response and adherence to the prescribed treatment plan reviewed, including non-pharmacological and non-opioid treatment modalities? Yes Have any complications or exacerbations of the underlying condition causing the pain been reviewed? Yes How much does pain impede patient?s ability to engage in work or other purposeful activities, interfere with your activities of daily living, physical activity, or quality of your family life and social activities? Moderately Aberrancies in pain panel? No Any aberrant drug related behaviors since last visit? No Rationale for continuing opioid treatment: Improved comfort and function based on an ongoing functional assessment Benefits of Opioid Therapy outweigh risks: Yes Prescribed Morphine Equivalent Daily Dose (MEDD): Yes > 50 MEDD Yes, I am certified in Hospice and Palliative Care, Hematology, Medical Oncology or Pain Medicine OARRS Checked: PDMP website checked and validated. All prescriptions have been APPROPRIATELY filled. No suspicious activity was identified. 10/26/2021 by Juan Francisco Hutchinson APRN.PEDRO Urine Screen Lab Results Component Value (more content not included)...[id number] History of Present illness Narrative* Juan Francisco Hutchinson APRN.PEDRO - 10/26/2021 11:07 AM EDT PALLIATIVE MEDICINE PROGRESS NOTE SERVICE DATE: 10/26/2021 Primary Site of Disease/Medical Illness: Hodgkin Lymphoma Site of Metastasis: Liver, Lymph nodes, Spleen CHIEF COMPLAINT: follow up for pain PERTINENT MEDICAL HISTORY: Celso Potts is a 41 yo female with Hodgkin's Lymphoma diagnosed 01/16/2012 s/p autologous SCT (2013) and several other treatments due to recurrences in that time. She hasundergone palliative radiation to spleen, liver, and lymph nodes per Dr. Del Valle. She is currently t reated with Keytruda per Dr. Abimael Ramires. Course has been c/b pulmonary embolus (on AC). Palliative care is following for symptom control needs. Subjective Last pall care with [facility] visit 08/02. Referred to [facility] palliative due to proximity of home. Did not go well. Now back for follow up for symptom control. Recovered from COVID in September PET/CT 08/15/[address] in neck and mesentery - will have repeat PET upcoming to evaluate. Continued on same treatment per oncology. Presents today alone. Reports she has been doing about the same but is nervous about what the upcoming PET scan will show. Modified ESAS ([place] Symptom Assessment Scale) Information Provided By: Patient Pain: continues to have generalized arthralgias and myalgias which interfere with mobility and productivity during the day. These are well controlled with oxycodone PRN. Also with muscle spasms whichcan happen at various locations on her body and worse/more often when she has more activity (she has been doing metal detecting with her father recently) but these are very well controlled as long asshe takes baclofen as prescribed. Using flexeril PRN. Denies confusion oversedation myoclonsu Nausea: occurring in the morning, resolves with dose of compazine PRN Loss of Appetite: None Constipation: none Shortness of Breath: None Drowsiness: None Tiredness: more tired recently due to new sleep issues. She falls asleep well after taking ativan and trazodone but wakes several times and doesn't go back to sleep. Doesn't nap during day to avoid trouble sleeping. Depression: Mild Anxiety: Mild How you feel overall: Good Objective ECOG PERFORMANCE STATUS: 0- Fully active, able to carry on all pre-disease performance w/o restriction. PHYSICAL EXAMINATION: Vital signs: BP 117/88 Pulse 100 Temp 36.5 C (97.7 F) Wt 103 kg (227 lb) LMP 11/18/2012 SpO2 97% BMI 30.79 kg/m Last 1 Encounter Temp Readings: Date: Temp: Temp Src: 10/25/2021 36.8 C (98.2 F) Oral Last 1 Encounter Resp Readings: Date: Resp: 09/20/2021 23 Last 1 Encounter Pulse Readings: Date: Pulse: 10/25/2021 102 Last 1 Encounter BP Readings: Date: BP: 10/25/2021 112/87 General Appearance: No apparent distress and well nourished Skin: No jaundice, No rash, and No breakdown Lungs: unlabored effort, no conversational dyspnea CV: no BLE edema Musculoskeletal: No gross deformity Neuro: Alert and oriented to time place and person and gait normal Psych: Well groomed, Affect congruent with mood, and Good eye contact DATA: Diagnostic tests reviewed for today's visit: Most recent labs and imaging results. Estimated Creatinine Clearance: 144.8 mL/min (based on SCr of 0.7 mg/dL). Opioid Management: Yes Indication for Opioid Prescribing: Chronic, Non-cancer pain ORT-OUD Score: 2 A score of 3 or higher may indicate a higher risk for future development of aberrant drug related behavior or opioid use disorder. Informed consent for chronic opiate therapy obtained and written pain agreement: On file Naloxone offered?: Previously prescribed Course of treatment, patient's response and adherence to the prescribed treatment plan reviewed, including non-pharmacological and non-opioid treatment modalities? Yes Have any complications or exacerbations of the underlying condition causing the pain been reviewed?Yes How much does pain impede patient s ability to engage in work or other purposeful activities, interfere with your activities of daily living, physical activity, or quality of your family life and social activities? Moderately Aberrancies in pain panel? No Any aberrant drug related behaviors since last visit? No Rationale for continuing opioid treatment: Improved comfort and function based on an ongoing functional assessment Benefits of Opioid Therapy outweigh risks: Yes Prescribed Morphine Equivalent Daily Dose (MEDD): Yes > 50 MEDD Yes, I am certified in Hospice and Palliative Care, Hematology, Medical Oncology or Pain Medicine OARRS Checked: PDMP website checked and validated. All prescriptions have been APPROPRIATELY filled. No suspiciousactivity was identified. 10/26/2021 by Juan Francisco Hutchinson APRN.CLINICAL TRIAL DATA MANAGER Urine Screen Lab Results Component Value Date UAMPH Negative 02/24/2021 UBARB2 Negative 02/24/2021 UBENZ Negative 02/24/2021 UQBUPRE <20 02/24/2021 UQNORBUP <20 02/24/2021 UCOC2 Negative 02/24/2021 UQCANN <16 02/24/2021 UOPI Negative 02/24/2021 UOXYC Negative 02/24/2021 UPCP Negative 02/24/2021 UTHC Negative 02/24/2021 UETOH <11 02/24/2021 Urine Panel: Lab Results Component Value Date Cannabinoid Quant, Urine <16 02/24/2021 Benzoylecognine Quant, Urine <24 02/24/2021 6-Acetylmorphine Quant, Urine <5 02/24/2021 Amphetamine Quant, Urine <5 02/24/2021 Methamphetamine Quant, Urine <8 02/24/2021 Buprenorphine Quant, Urine <20 02/24/2021 Norbuprenorphine Quant, Urine <20 02/24/2021 Methadone Quant, Urine <16 02/24/2021 EDDP Quant, Urine <6 02/24/2021 Tramadol Quant, Urine <25 02/24/2021 Desmethyltramadol Quant, Urine <20 02/24/2021 Fentanyl Quant, Urine <6 02/24/2021 Norfentanyl Quant, Urine <6 02/24/2021 Codeine Quant, Urine <11 02/24/2021 Morphine Quant, Urine <10 02/24/2021 Dihydrocodeine Quant, Urine <5 02/24/2021 Hydrocodone Quant, Urine <8 02/24/2021 Oxycodone Quant, Urine <10 02/24/2021 Hydromorphone Quant, Urine <5 02/24/2021 Oxymorphone Quant, Urine <5 02/24/2021 Creatinine,Ur Pain Ocasio 70.2 02/24/2021 Urine pH, Pain Ocasio 6.3 02/24/2021 Specific [place],Ur Pain Ocasio 1.012 02/24/2021 Oxidants,Ur 46 02/24/2021 Specimen Quality, Ur Pain Ocasio Specimen quality results within acceptable limits. 05/03/2014 Assessment & Plan (Z51.5) Encounter for palliative care (primary encounter diagnosis) - reviewed role of palliative care, contact info, and reasons to call. 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 Ramires (G89.3) Cancer related pain - nociceptive somatic pain associated to prior radiation effects c/b joint pain associated to psoriatic arthritis - managed well presently - continue oxycodone 10 mg Q4H PRN - continue gabapentin 600 mg TID - consider addition of duloxetine if worsening - suggest rheumatology involvement (R25.2) Muscle cramps - much improved and well controlled - continue baclofen 10 mg TID - continue cyclobenzaprine 10 mg TID PRN (F41.9) Anxiety - long standing problem - increases when scans are due (getting Q6 months) - current medications managed per PCP including atarax and ativan - highly encouraged establishing with counselor - she currently does not want to do this due to number of appointments. - would advise addition of SSRI or SNRI (Cymbalta) if persisting. - new insomnia. Suggested reaching out to PCP for adjustment in trazodone. Also suggested discontinuation of ativan to avoid this wearing off and causing her to awaken. Counseled on increased risk ofrespiratory depression with concurrent use of opiates and benzodiazepines. Narcan previously ordered. Some elements copied from my note on 08/02/21, the elements have been updated and all reflect current decision making from today, 10/26/2021. 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 (age at diagnosis 31YOF, ESR normal, WBC, Hgb, Lymph and alb normal) Previous Treatment: ABVD started on 02/11/2012 x 12 doses progressed to month after stopping treatment ICE x3 progressed after stopping treatment 3 cycles of Brentuximab Vedotin (Adcetris) followed by Auto BMT high-dose busulfan, etoposide, and cyclophosphamide with autologous hematopoietic progenitor cell transplantation in 02/2013 45 Gy in 25 fx was delivered to the mediastinal/hilar/left SC faustina regions using 6 MV photons from07/27/2013 ? 08/31/2013. Brentuximab Vedotin (Adcetris) Started 02/04/2014 stopped 2nd to neuropathy Nivolumab (Opdivo) started Nov 18 2014 stopped 2019 Ibrutinib started early 2019. Ordered April 22, 2019 stopped nov 04 2019 Current Treatment: Pembrolizumab 200 mg every 3 weeks started on November 09, 2019 Palliative radiation to be done end of March 2020 secondary to mild progression and continue pembrolizumab after HPI: This is a 41 year old female with no significant PMH presented in August [address] in the neck and left axillary area. She was treated with multiple courses of IV antibiotics without improvement. + B symptoms (fever, drenching night sweats but no wt. loss) and itching rash in the lower exts. Left Axillary LN excisional biopsy: Nodular sclerosis classical Hodgkin lymphoma Feb [address]: IMPRESSION: FINDINGS COMPATIBLE WITH MILD RIGHT CERVICAL AND LEFT ANTERIOR SUBDIAPHRAGMATIC ADENOPATHY, MODERATE TO SEVERE HYPERMETABOLIC BILATERAL AXILLARY AND SUPRACLAVICULAR (LEFT GREATER THAN RIGHT), SUPERIOR MEDIASTINAL, RIGHT PARATRACHEAL, AND ANTERIOR MEDIASTINAL ADENOPATHY. FINDINGS SUSPICIOUS OF HYPERMETABOLIC SPLENIC LYMPHOMATOUS INVOLVEMENT. Bone Marrow Bx was negative incidental finding of pulmonary embolism on CT chest. Patient was started on Lovenox on May 27, 2012 Relapsed S/P 3 cycles of ICE with progression, S/P Brentuximab Vedotin (Adcetris) and Auto BMT Radiation to the chest complicated with Radiation pneumonitis Brentuximab Vedotin (Adcetris) stopped 2nd to grade III pneumonitis She saw Dr. Alejandro sarmiento at [facility] for 2nd opinion cell([phone]) She agreed with out plan and recommended repeat of her PET and if progressed either Opdivo vs clinical trial March 02, 2018 CT chest abdomen and pelvis mild progression of the lymph nodes in the abdomen andpelvis. PET scan was recommended Early 2018 patient was diagnosed with psoriasis (multiple 1-2 cm spots on her extremities). Patientstated rash started when we changed to every 4 weeks dosing. We'll resume every 2 weeks dosing and psoriasis is better to stable 03/13/2019 PET scan showed progression IMPRESSION: 1. NECK: * No FDG avid neoplastic process. 2. CHEST:* No FDG avid neoplastic process. 3. ABDOMEN/PELVIS:* Interval progression of retroperitoneal faustina metastatic disease with increase in size and FDG avidity of nodes/conglomerate masses in the upper abdomen since 03/08/2017. * Development of new FDG avid hepatic metastases in segments II and IVb. * FDG avid splenic lesion has increased in size and relative FDG avidity since the prior exam. 4. EXTREMITIES/SKELETON: No suspicious FDG avid osseous lesion. Deauville score: 5 Ibrutinib was orderef on 04/22/2019 PET scan October 2019 showed disease progression. Ibrutinib was stopped. Pembrolizumab was started in October 2019 PET scan March 2020 mild disease progression Palliative radiation was recommended April 2020 Palliative radiation to the spleen, liver and lymph node at [facility] Interval history: Ms. Potts is here for follow up and C#31 pembro. Patient went to [place] ED 09/20/21 with fever, chills,fatigue. Tested positive for Covid. Has fully recovered since. Scheduled for repeat PET CT on 11/01/21. She is nervous. Tolerating treatment well without any significant side effect her symptoms are stable Continue to have stable generalized pain, neuropathy PAST MEDICAL HISTORY: History of tachycardia treated with atenolol, pulmonary embolism incidentallyfound on restaging CT (May 27, 2012). 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 PHYSICAL EXAM: BP 112/87 Pulse 102 Temp 36.8 C (98.2 F) (Oral) Wt 102.8 kg (226 lb 9.6 oz) LMP 11/18/2012 SpO2 97% BMI 30.73 kg/m ECOG PS: 0 General: Alert, oriented x 3. NAD. Non-toxic appearing. Well-nourished. HEENT: No scleral icterus. Heart: HRR s1s2 Lungs: Lungs CTA, no wheezing, rales, rhonchi or crackles ,non-labored breathing. Abdominal: Abd soft, NT, ND. No hepatosplenomegaly. Extremities: No edema or cyanosis. Skin: No rashes, bruising, or petechiae. Neuro: Non-focal exam without deficits. DATA CBC, CMP and TSH, sed rate were reviewed in [facility]. ASSESSMENT AND PLAN: 1. 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 Complete PET CR after 4 doses of ABVD (2 cycles). Finished 12 doses of ABVD and progressed soon after finishing treatment, 3 cycles of salvage ICE relapsed after finishing treatment before bone marrow transplant. S/P Brentuximab Vedotin (Adcetris) followed by Auto BMT. Relapsed in June 2013. chest radiation. Relapsed on January 20, 2014. Declined Allo SCT Dr. Del Valle did palliative radiation to the spleen, liver and lymph nodes Patient had another PET scan August 15, 2021 1 cm no FDG avid lymph node reactive versus disease progression Case was discussed with Dr. Del Valle radiation oncology. We will repeat another PET scan in a couplemonth if size or SUV worsened we will proceed with SBRT Continue with palliative pembrolizumab 200 mg every 3 weeks We will continue to monitor toxicity with CMP, TSH, cortisol 2. History Pulmonary embolism: recurrence after being off AC since she had her Auto transplant. Currently on xeralto and tolerating it well we will continue 3. Neuropathy: Stable continue Neurontin. 600 mg TID currently not affecting her function 4. Depression on Remeron 30 mg stable 5. History Herpes zoster continue with prophylactic dose of Acyclovir 400 mg twice daily 6. Hx PCP pneumonia: Allergic to Bactrim. Was treated with Primaquine and clindamycin follow up with Dr. Sigala ID was On dapsone for prophylaxis. stopped CD 4 continued to be above 200 8. Muscle cramps better with Flexeril. Left knee pain and swelling saw orthopedic no benefit. Referto rheumatology 9. Psoriasis noted diagnosis unclear if related to Nivolumab will go back to every 2 weeks regimen 10. Cancer pain continue oxycodone 5 mg 3 times daily Consult palliative medicine 11. Slightly elevated AST and ALT we will continue to monitor with CMP prior to each treatment Stable to improved. Unlikely immune related. Patient verbalized understanding and agreed with above plan This note was copied from prior heme/onc encounter from 08/16/21. The patient's medications, allergies, past medical/surgical hx, family hx, ROS, and physical exam have all been reviewed and updated as appropriate. The interval history and assessment/plan content have been modified and are specific to today's (October 25, 2021) purpose for the visit. Sylvia Mancilla APRN.CNP Hematology/Oncology Janae Ortiz/ [facility] [phone] CC: Jose Parra documented in this encounterOhiohealth Southeastern Medical Center09-07-2022 Instructions* Patient Instructions* Sylvia Mancilla APRN.CNP - 10/25/2021 10:00 AM EDT Call the office with questions or concerns. Go to ER with any signs of infection like fever of 100.4 or higher. documented in this encounterOhiohealth Southeastern Medical Center08-29-2022 Miscellaneous Notes* Telephone Encounter - Juan Francisco Hutchinson APRN.CNP - 10/16/2021 4:16 PM EDT PDMP website checked and validated. All prescriptions have been APPROPRIATELY filled. No suspiciousactivity was identified. 10/16/2021 by Juan Francisco Hutchinson APRN.CNP Rx sent Juan Francisco Emely, PHOTOTYPESETTER OPERATOR.CLINICAL TRIAL DATA MANAGER * Telephone Encounter - Kristina Pete RN - 10/16/2021 3:59 PM EDT Patient phones requesting refills as follows: Requested Prescriptions Pending Prescriptions Disp Refills oxyCODONE IR (ROXICODONE) 10 mg tab 120 tablet 0 Sig: Take 1 tablet by mouth every 4 hours as needed (moderate-severe cancer pain) for up to 30 days. Please review and advise. Kristina Pete RN documented in this encounterOhiohealth Southeastern Medical Center08-15-2022 Miscellaneous Notes* Telephone Encounter - Joanne Jade PA-C - 10/02/2021 4:13 PM EDT Prescription signed * Telephone Encounter - Elaine Enriquez LPN - 10/02/2021 2:13 PM EDT KENN: 04/12/21 Pharmacy electronically requests the following refill(s) Requested Prescriptions Pending Prescriptions Disp Refills SPIRIVA RESPIMAT 2.5 mcg/actuation inhaler [Pharmacy Med Name: SPIRIVA RESPIMAT 2.5 MCG INH] 4 g 11 Sig: INHALE 2 PUFFS DIRECTED ONCE DAILY Elaine Enriquez LPN documented in this encounterOhiohealth Southeastern Medical Center08-05-2022 Miscellaneous Notes* Telephone Encounter - Caro Srinivasan RN - 09/22/2021 12:11 PM EDT EMERGENCY ROOM CALL BACK Today's date: September 22, 2021 Patient identified by name and date of . YES Primary Cancer Diagnosis: CLL Reason for Emergency Room Visit: fever Time of day presented to Emergency Room 1949 If Sat-Saturday during business hours: N/A Patient with any new symptom issues: No Psychosocial Risk Factors: None FOLLOW UP Patient reminded of her follow-up appointment with [facility] provider, 10/04/21 Keytruda infusion and then 10/25 OV E Gross and infusion: Yes Next Novelty Maker outreach with patient scheduled? No, appointment made PATIENT EDUCATION/REINFORCEMENT Patient has information of when to seek Medical Attention? YES Patient has information of after hours and weekend phone number? YES Caro Srinivasan RN documented in this encounterOhiohealth Southeastern Medical Center08-04-2022 NoteHNO ID: [id number] Author: RT Chapis(R) Service: Radiology Author Type: Ice Cream Freezer Type: Progress Notes Filed: 09/20/2021 10:41 PM Note Text: Radiology Service Progress Note PATIENT NAME: Celso Potts DATE OF SERVICE: September 20, 2021 TIME: 10:40 PM PATIENT IDENTITY VERIFICATION COMPLETED USING TWO (2) IDENTIFIERS: Name and Date of confirmed by patient verbally and Name and Date of confirmed by identification band. FALL SCREENING: Has the patient had 2 falls in the last year or 1 fall with injury or currently using an Ambulatory Assistive Device (Walker, Cane, Wheelchair, Crutches, etc.)? Emergency Room Patient: Screened in ED PATIENT GENDER DATA: Female. status: : No status: NO. PATIENT RELEVANT IMPLANT DATA REVIEWED: Not Applicable RADIOLOGY DEPARTMENT: General X-ray: Exam(s) Completed: Chest X-Ray PERIPHERAL IV DATA: Not applicable SIGNED BY: RT Chapis(R) September 20, 2021 10:40 [id number] NoteCOVID 19 RESULT: SARS-CoV-2 (Agent of COVID-19) Detected by RT-PCR or equivalent method. This test has been authorized by FDA under an Emergency Use Authorization (EUA). INFLUENZA A PCR: Negative for Influenza A by RT-PCR INFLUENZA B PCR: Negative for Influenza B by RT-PCR RSV PCR: Negative for Respiratory Syncytial Virus (RSV) by PCRon HospitalComment on above:Performed By: #### [id number] #### [facility] CLIA [id number] [facility] [place]. [place], [place] [id number] [place] [address] [id number] History of Present illness Narrative* Nova Bridges, LORY.CLINICAL TRIAL DATA MANAGER - 09/05/2021 5:43 PM EDT SKIN EXAM ESTABLISHED LAST OFFICE VISIT: 07/28/21 CC: This patient is a 41 year old female. Patient presents with: Derm Problem: Hs lesions HPI: Location: pubic area Appearance (size, shape, color): hidradenitis supprativa abscess Duration: 3 weeks Symptoms (growing, itching, bleeding, tender): draining, painful Treatments: none to these areas Improving still hard around outside Washes with [employer] brand hibiclens History of hidradenitis: clindamycin lotion topically to treat -Personal history of skin cancer: No -History of blistering sunburns: Yes -Family history of skin cancer: No SOC: Social History Tobacco Use Smoking status: Former Smoker Years: 10.00 Types: Cigarettes Quit date: 01/18/2012 Years since quittin.6 Smokeless tobacco: Never Used Vaping Use Vaping Use: Never used Substance Use Topics Alcohol use: Yes Alcohol/week: 0.0 standard drinks Comment: 2 drinks per month Drug use: No MEDS: Current outpatient prescriptions: Current Outpatient Medications on File Prior to Visit Medication Sig prochlorperazine (COMPAZINE) 10 mg tablet Take 1 tablet by mouth every 6 hours as needed. cyclobenzaprine (FLEXERIL) 10 mg tablet Take 1 tablet by mouth three times daily as needed. gabapentin (NEURONTIN) 300 mg capsule Take 2 capsules by mouth three times daily for 180 days. LORazepam (ATIVAN) 0.5 mg take 1 tablet twice a day if needed and take 1 to 2 tablets by mouth at bedtime if needed oxyCODONE IR (ROXICODONE) 10 mg tab Take 1 tablet by mouth every 4 hours as needed (moderate-severecancer pain) for up to 30 days. baclofen (LIORESAL) 5 mg tablet take 1 tablet by mouth three times a day albuterol HFA (VENTOLIN HFA) 90 mcg/actuation inhaler Inhale 2 Puffs as instructed every 4 hours asneeded for wheezing/shortness of breath. acyclovir (ZOVIRAX) 400 mg tablet take 1 tablet by mouth twice a day hydrOXYzine HCl (ATARAX) 25 mg tablet Take 1 tablet by mouth three times daily as needed. Prescribed by PCP tiotropium bromide (SPIRIVA RESPIMAT) 2.5 mcg/actuation inhaler Inhale 2 Puffs as instructed once daily. fluocinonide (LIDEX) 0.05 % cream apply to affected area ON THE RIGHT HAND and legs TWICE A DAY rivaroxaban (XARELTO) 10 mg tablet Take 1 tablet by mouth once daily. chlorhexidine (HIBICLENS) 4 % external liquid In groin as a wash Clindamycin Phosphate (CLEOCIN T) 1 % lotion To groin daily naloxone 4 mg/actuation nasal spray (NARCAN) Use 1 spray in one nostril as needed for overdose. Mayrepeat every 2 to 3 min in alternating nostrils until medical assistance is available levothyroxine (SYNTHROID) 75 mcg tablet Take 1 tablet by mouth once daily. albuterol (PROVENTIL) 2.5 mg /3 mL (0.083 %) nebulizer solution inhale contents of 1 vial ( 3 milliliters ) in nebulizer by mouth... (REFER TO PRESCRIPTION NOTES). triamcinolone acetonide (KENALOG) 0.1 % ointment APPLY TO THE AFFECTED AREA TWICE A DAY FOR 5 DAYS traZODone (DESYREL) 50 mg tablet Take 100 mg by mouth daily at bedtime. Vitamin B Comp and C No.3 (B COMPLEX PLUS VITAMIN C) 29-10-92-5-300 mg cap Take 1 tablet by mouth once daily. Dexlansoprazole (DEXILANT) 30 mg CpDM Take 1 capsule by mouth once daily. Lactobac no.41/Bifidobact no.7 (PROBIOTIC-10 ORAL) Take by mouth. atenolol (TENORMIN) 50 mg tablet take 1 tablet by mouth twice a day CHOLECALCIFEROL, VITAMIN D3, (VITAMIN D3 ORAL) Take 1,000 Units by mouth once daily. acetaminophen (TYLENOL) 325 mg tablet Take 1-2 tablets by mouth every 4 hours as needed (not to exceed 2000 mg in a 24 hour period). No current facility-administered medications on file prior to visit. ALLERGY: ALLERGIES Allergen Reactions Chlorhexidine Itching Severe skin irritation. Had used for central line care Sulfa (Sulfonamide * Rash REVIEW OF SYSTEMS: Patient feels well and denies any recent fevers, chills, or nightsweats. PHYSICAL EXAM: The patient is a pleasant female in no distress. Patient appears healthy, well developed, well nourished and in otherwise good health. Alert and oriented x 3. A skin exam was done of the left leg and genital area. Smith Skin Type: II IMPRESSION: Supra pubic with 3 erythematous fluctuant nodules Left inguinal fold erythematous fluctuant nodule Left lateral knee light brown firm square nodule + dimple test A/P: (L73.2) Hidradenitis suppurativa (L98.9) Painful skin lesion -chronic destructive inflammatory disorder -seen most commonly on the buttocks, breasts, groin and axillae -associated with obesity and cigarette smoking -Talbert staging system -stage I: abscess without sinus tract/scarring -stage II: recurrent abscess with sinus tract/scarring and widely spread -stage III: multiple interconnected sinus tracts/abscesses with diffuse involvement of affected areas Treatment: -weight loss and smoking cessation is recommended -avoid tight fitting clothing and excessive friction -surgical excision reserved for extensive scarring Short term management: -acute flares can consider ILK injections to lesions with or without short course of oral antibiotics joint terminal attack controller management -continue topical clindamycin 1% lotion -antibacterial wash daily (benzoyl peroxide, hibiclens, chlorhexidine) -recommend ILK today to 4 lesions Discussed R/B/O of medication including side effects. patient agrees to proceed. 4 areas cleansed with alcohol. 1.0 ml of ILK 10 mg injected to 4 lesions. Patient tolerated well. 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 Scribed by Janice Miller MA I agree with the Chief Complaint, ROS, and Past Histories independently gathered by the clinical it application support analyst and the remaining scribed note accurately describes my personal service to the patient. Nova Bridges APRN.PEDRO September 05, 2021 5:59 PM documented in this encounterOhiohealth Southeastern Medical Center07-18-2022 Miscellaneous Notes* Telephone Encounter - Flori Ford RN - 09/04/2021 11:32 AM EDT Pall med nurse call to patient and inquired if she was with [facility]iative care and she reports her first appointment is with them at end of month, 09/14/21. Discovered she still has plenty of Baclofen refills left and denies need of Rx at this time. Flori Ford RN * Telephone Encounter - Flori Ford RN - 09/04/2021 10:07 AM EDT Patient phones requesting refills as follows, Juan Francisco Hutchinson CNP patient : Rx last ordered 07/31/21. Last pall med appt 08/02/21, No future appointment scheduled yet. Pending Prescriptions Disp Refills BACLOFEN 5 MG TABLET 90 tablet 2 Sig: Take 1 tablet by mouth three times daily. KAREN: No Please review and advise. Flori Ford RN documented in this encounterOhiohealth Southeastern Medical Center06-28-2022 Miscellaneous Notes* Telephone Encounter - Juan Francisco Rai APRN.CNP - 08/15/2021 12:36 PM EDT PDMP website checked and validated. All prescriptions have been APPROPRIATELY filled. No suspiciousactivity was identified. Oxycodone e-scribed. Juan Francisco Rai APRN.CNP * Telephone Encounter - Kristina Pete RN - 08/15/2021 7:50 AM EDT Patient had requested referral to [facility] 08/03. TC spoke to Celso Potts patient is not able to start care with [facility] until middle of August. Will need refills until she establishes. Patient phones requesting refills as follows: Pending Prescriptions Disp Refills OXYCODONE 10 MG TABLET 120 tablet 0 Sig: Take 1 tablet by mouth every 4 hours as needed (moderate-severe cancer pain) for up to 30 days. SHELBIE Class: C-II KAREN: No Please review and advise. Kristina Pete RN documented in this encounterOhiohealth Southeastern Medical Center06-16-2022 Miscellaneous Notes* Telephone Encounter - Kristina Pete RN - 08/03/2021 8:21 AM EDT Patient has requested palliative services closer to her home referral faxed to [facility] palliative care. [phone] Kristina Pete RN documented in this encounterOhiohealth Southeastern Medical Center06-10-2022 History of Present illness Narrative* Nova Bridges APRN.[facility] - 07/28/2021 7:59 AM EDT SKIN EXAM ESTABLISHED LAST OFFICE VISIT: Dr. Gamez 12/06/2020 CC: This patient is a 41 year old female. Patient presents with: LESION, SKIN HPI: Location: inner left thigh Appearance (size, shape, color): abscess Duration: 1 week Symptoms (growing, itching, bleeding, tender): draining Treatments: Went to ER on Saturday drained , given clindamycin 300 bid Improving still hard around outside Washes with [employer] brand hibiclens History of hidradenitis, last seen by Dr. Gamez in 2020 Treated with hibiclens and clindamycin -Personal history of skin cancer: No -History of blistering sunburns:Yes -Family history of skin cancer: No SOC: Social History Tobacco Use Smoking status: Former Smoker Years: 10.00 Types: Cigarettes Quit date: 01/18/2012 Years since quittin.5 Smokeless tobacco: Never Used Vaping Use Vaping Use: Never used Substance Use Topics Alcohol use: Yes Alcohol/week: 0.0 standard drinks Comment: 2 drinks per month Drug use: No MEDS: Current outpatient prescriptions: Current Outpatient Medications on File Prior to Visit Medication Sig cyclobenzaprine (FLEXERIL) 10 mg tablet Take 1 tablet by mouth three times daily as needed. LORazepam (ATIVAN) 0.5 mg take 1 tablet twice a day if needed and take 1 to 2 tablets by mouth at bedtime if needed oxyCODONE IR (ROXICODONE) 10 mg tab Take 1 tablet by mouth every 4 hours as needed (moderate-severecancer pain) for up to 30 days. Do not start before July 14, 2021. albuterol HFA (VENTOLIN HFA) 90 mcg/actuation inhaler Inhale 2 Puffs as instructed every 4 hours asneeded for wheezing/shortness of breath. prochlorperazine (COMPAZINE) 10 mg tablet take 1 tablet by mouth 6 hours if needed acyclovir (ZOVIRAX) 400 mg tablet take 1 tablet by mouth twice a day azithromycin (ZITHROMAX Z-RON) 250 mg tablet Take two (2) tablets by mouth the first day and then one (1) tablet daily for 4 days. hydrOXYzine HCl (ATARAX) 25 mg tablet Take 1 tablet by mouth three times daily as needed. Prescribed by PCP tiotropium bromide (SPIRIVA RESPIMAT) 2.5 mcg/actuation inhaler Inhale 2 Puffs as instructed once daily. gabapentin (NEURONTIN) 300 mg capsule take 2 capsules by mouth three times a day fluocinonide (LIDEX) 0.05 % cream apply to affected area ON THE RIGHT HAND and legs TWICE A DAY rivaroxaban (XARELTO) 10 mg tablet Take 1 tablet by mouth once daily. chlorhexidine (HIBICLENS) 4 % external liquid In groin as a wash Clindamycin Phosphate (CLEOCIN T) 1 % lotion To groin daily naloxone 4 mg/actuation nasal spray (NARCAN) Use 1 spray in one nostril as needed for overdose. Mayrepeat every 2 to 3 min in alternating nostrils until medical assistance is available levothyroxine (SYNTHROID) 75 mcg tablet Take 1 tablet by mouth once daily. albuterol (PROVENTIL) 2.5 mg /3 mL (0.083 %) nebulizer solution inhale contents of 1 vial ( 3 milliliters ) in nebulizer by mouth... (REFER TO PRESCRIPTION NOTES). triamcinolone acetonide (KENALOG) 0.1 % ointment APPLY TO THE AFFECTED AREA TWICE A DAY FOR 5 DAYS traZODone (DESYREL) 50 mg tablet Take 100 mg by mouth daily at bedtime. Vitamin B Comp and C No.3 (B COMPLEX PLUS VITAMIN C) 39-72-54-5-300 mg cap Take 1 tablet by mouth once daily. Dexlansoprazole (DEXILANT) 30 mg CpDM Take 1 capsule by mouth once daily. Lactobac no.41/Bifidobact no.7 (PROBIOTIC-10 ORAL) Take by mouth. atenolol (TENORMIN) 50 mg tablet take 1 tablet by mouth twice a day CHOLECALCIFEROL, VITAMIN D3, (VITAMIN D3 ORAL) Take 1,000 Units by mouth once daily. acetaminophen (TYLENOL) 325 mg tablet Take 1-2 tablets by mouth every 4 hours as needed (not to exceed 2000 mg in a 24 hour period). No current facility-administered medications on file prior to visit. ALLERGY: ALLERGIES Allergen Reactions Chlorhexidine Itching Severe skin irritation. Had used for central line care Sulfa (Sulfonamide * Rash REVIEW OF SYSTEMS: Patient feels well and denies any recent fevers, chills, or nightsweats. PHYSICAL EXAM: The patient is a pleasant female in no distress. Patient appears healthy, well developed, well nourished and in otherwise good health. Alert and oriented x 3. A skin exam was done of the left medial thigh. Smith Skin Type: II IMPRESSION: Left medial superior thigh with resolving hidradenitis supprativa abscess Left inferior buttock erythematous nodule A/P: (L73.2) Hidradenitis suppurativa (L98.9) Painful skin lesion -chronic destructive inflammatory disorder -seen most commonly on the buttocks, breasts, groin and axillae -associated with obesity and cigarette smoking -Talbert staging system -stage I: abscess without sinus tract/scarring -stage II: recurrent abscess with sinus tract/scarring and widely spread -stage III: multiple interconnected sinus tracts/abscesses with diffuse involvement of affected areas Treatment: -weight loss and smoking cessation is recommended -avoid tight fitting clothing and excessive friction -surgical excision reserved for extensive scarring Short term management: -acute flares can consider ILK injections to lesions with or without short course of oral antibiotics Empiric antibiotics Continue Clindamycin 300 mg BID until completed (from ED) joint terminal attack controller management -continue topical clindamycin 1% lotion -antibacterial wash daily (benzoyl peroxide, hibiclens, chlorhexidine) -recommend ILK today to left inferior buttock lesion Discussed R/B/O of medication including side effects. patient agrees to proceed. 2 areas cleansed with alcohol. 0.4 ml of ILK 10 injected. Patient tolerated well. Follow up annually and as needed. The patient is seen and examined by Nova Bridges CNP and the following reflects his/her service. Scribed by Zoila Pedersen RN / Janice Miller MA I agree with the Chief Complaint, ROS, and Past Histories independently gathered by the clinical it application support analyst and the remaining scribed note accurately describes my personal service to the patient. Nova Bridges APRN.CNP July 28, 2021 8:03 AM documented in this encounterOhiohealth Southeastern Medical Center05-24-2022 Miscellaneous Notes* Telephone Encounter - Juan Francisco Hutchinson APRN.CNP - 2021 11:31 AM EDT PDMP website checked and validated. All prescriptions have been APPROPRIATELY filled. No suspiciousactivity was identified. 2021 by Juan Francisco Hutchinson APRN.CNP Last Palliative Care visit: 05/17/21 Next scheduled Palliative Care visit: 08/02/21 Rx sent. Earliest fill 07/14/21 Juan Francisco Hutchinson APRN.CNP * Telephone Encounter - Flori Ford RN - 2021 9:34 AM EDT Patient phones requesting refills as follows: Last Rx written on 06/15/21, last pall med appt. On 05/17/21, future appt. 08/02/21. Pending Prescriptions Disp Refills OXYCODONE 10 MG TABLET 120 tablet 0 Sig: Take 1 tablet by mouth every 4 hours as needed (moderate-severe cancer pain) for up to 30 days. SHELBIE Class: C-II KAREN: No Please review and advise. Flori Ford RN documented in this encounterCleveland [id number] Miscellaneous Notes* Telephone Encounter - Joanen Jade PA-C - 06/30/2021 4:02 PM EDT Prescription signed * Telephone Encounter - Elaine Enriquez LPN - 06/30/2021 9:35 AM EDT KENN: 04/12/21 Pharmacy electronically requests the following refill(s) Pending Prescriptions Disp Refills ALBUTEROL SULFATE HFA 90 MCG/ACTUATION AEROSOL INHALER 1 Each 5 Sig: Inhale 2 Puffs as instructed every 4 hours as needed for wheezing/shortness of breath. KAREN: No Elaine Enriquez LPN documented in this encounterOhiohealth Southeastern Medical Center04-28-2022 Miscellaneous Notes* Telephone Encounter - Juan Francisco Hutchinson APRN.PEDRO - 06/15/2021 5:05 PM EDT PDMP website checked and validated. All prescriptions have been APPROPRIATELY filled. No suspiciousactivity was identified. 06/15/2021 by Juan Francisco Hutchinson APRN.CLINICAL TRIAL DATA MANAGER Rx sent Juan Francisco Hutchinson APRN.CLINICAL TRIAL DATA MANAGER * Telephone Encounter - Kristina Pete RN - 06/15/2021 4:43 PM EDT Patient phones requesting refills as follows: Pending Prescriptions Disp Refills OXYCODONE 10 MG TABLET 120 tablet 0 Sig: Take 1 tablet by mouth every 4 hours as needed (moderate-severe cancer pain) for up to 30 days. SHELBIE Class: C-II KAREN: No Please review and advise. 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 (age at diagnosis 31YOF, ESR normal, WBC, Hgb, Lymph and alb normal) Previous Treatment: ABVD started on 02/11/2012 x 12 doses progressed to month after stopping treatment ICE x3 progressed after stopping treatment 3 cycles of Brentuximab Vedotin (Adcetris) followed by Auto BMT high-dose busulfan, etoposide, and cyclophosphamide with autologous hematopoietic progenitor cell transplantation in 02/2013 45 Gy in 25 fx was delivered to the mediastinal/hilar/left SC faustina regions using 6 MV photons from07/27/2013 ? 08/31/2013. Brentuximab Vedotin (Adcetris) Started 02/04/2014 stopped 2nd to neuropathy Nivolumab (Opdivo) started Nov 18 2014 stopped 2019 Ibrutinib started early 2019. Ordered April 22, 2019 stopped nov 04 2019 Current Treatment: Pembrolizumab 200 mg every 3 weeks started on November 09, 2019 Palliative radiation to be done end of March 2020 secondary to mild progression and continue pembrolizumab after HPI: This is a 40 year old female with no significant PMH presented in August [address] in the neck and left axillary area. She was treated with multiple courses of IV antibiotics without improvement. + B symptoms (fever, drenching night sweats but no wt. loss) and itching rash in the lower exts. Left Axillary LN excisional biopsy: Nodular sclerosis classical Hodgkin lymphoma Feb [address]: IMPRESSION: FINDINGS COMPATIBLE WITH MILD RIGHT CERVICAL AND LEFT ANTERIOR SUBDIAPHRAGMATIC ADENOPATHY, MODERATE TO SEVERE HYPERMETABOLIC BILATERAL AXILLARY AND SUPRACLAVICULAR (LEFT GREATER THAN RIGHT), SUPERIOR MEDIASTINAL, RIGHT PARATRACHEAL, AND ANTERIOR MEDIASTINAL ADENOPATHY. FINDINGS SUSPICIOUS OF HYPERMETABOLIC SPLENIC LYMPHOMATOUS INVOLVEMENT. Bone Marrow Bx was negative incidental finding of pulmonary embolism on CT chest. Patient was started on Lovenox on May 27, 2012 Relapsed S/P 3 cycles of ICE with progression, S/P Brentuximab Vedotin (Adcetris) and Auto BMT Radiation to the chest complicated with Radiation pneumonitis Brentuximab Vedotin (Adcetris) stopped 2nd to grade III pneumonitis She saw Dr. Alejandro sarmiento at [facility] for 2nd opinion cell([phone]) She agreed with out plan and recommended repeat of her PET and if progressed either Opdivo vs clinical trial March 02, 2018 CT chest abdomen and pelvis mild progression of the lymph nodes in the abdomen andpelvis. PET scan was recommended Early 2018 patient was diagnosed with psoriasis (multiple 1-2 cm spots on her extremities). Patientstated rash started when we changed to every 4 weeks dosing. We'll resume every 2 weeks dosing and psoriasis is better to stable 03/13/2019 PET scan showed progression IMPRESSION: 1. NECK: * No FDG avid neoplastic process. 2. CHEST:* No FDG avid neoplastic process. 3. ABDOMEN/PELVIS:* Interval progression of retroperitoneal faustina metastatic disease with increase in size and FDG avidity of nodes/conglomerate masses in the upper abdomen since 03/08/2017. * Development of new FDG avid hepatic metastases in segments II and IVb. * FDG avid splenic lesion has increased in size and relative FDG avidity since the prior exam. 4. EXTREMITIES/SKELETON: No suspicious FDG avid osseous lesion. Deauville score: 5 Ibrutinib was orderef on 04/22/2019 PET scan October 2019 showed disease progression. Ibrutinib was stopped. Pembrolizumab was started in October 2019 PET scan March 2020 mild disease progression Palliative radiation was recommended April 2020 Palliative radiation to the spleen, liver and lymph node at [facility] Interval history: Patient is here for follow-up on above diagnosis tolerating treatment well without any significant side effect. Most of her chronic symptoms are stable PAST MEDICAL HISTORY: History of tachycardia treated with atenolol, pulmonary embolism incidentallyfound on restaging CT (May 27, 2012). 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 PHYSICAL EXAM: BP 108/74 Pulse 90 Temp 36.7 C (98 F) (Oral) Ht 181 cm (5' 11.26 ) LMP 11/18/2012 BMI 33.92 kg/m General: NAD, ECOG PS:1 No paleness or jaundice lymph system: No lymphadenopathy in the neck. SC or axillary area BL. Heart: S1, S2, RRR Lung: CTA (BL), no wheezing or crackles Abd: No tenderness, or distension. Soft Extremities: No pitting edema, or cyanosis DATA CBC, CMP and TSH, sed rate were reviewed in [facility]. ASSESSMENT AND PLAN: 1. 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 Complete PET CR after 4 doses of ABVD (2 cycles). Finished 12 doses of ABVD and progressed soon after finishing treatment, 3 cycles of salvage ICE relapsed after finishing treatment before bone marrow transplant. S/P Brentuximab Vedotin (Adcetris) followed by Auto BMT. Relapsed in June 2013. chest radiation. Relapsed on January 20, 2014. Declined Allo SCT Dr. Del Valle did palliative radiation to the spleen, liver and lymph nodes We will continue to monitor toxicity and repeat another PET scan every 6-month. Patient preference every 6 months if used every 3 months Continue with palliative pembrolizumab 200 mg every 3 weeks We will continue to monitor toxicity with CMP, TSH 2. History Pulmonary embolism: recurrence after being off AC since she had her Auto transplant. Currently on xeralto and tolerating it well we will continue 3. Neuropathy: Stable continue Neurontin. 600 mg TID currently not affecting her function 4. Depression on Remeron 30 mg stable 5. History Herpes zoster continue with prophylactic dose of Acyclovir 400 mg twice daily 6. Hx PCP pneumonia: Allergic to Bactrim. Was treated with Primaquine and clindamycin follow up with Dr. Sigala ID was On dapsone for prophylaxis. stopped CD 4 continued to be above 200 8. Muscle cramps better with Flexeril. Left knee pain and swelling saw orthopedic no benefit. Referto rheumatology 9. Psoriasis noted diagnosis unclear if related to Nivolumab will go back to every 2 weeks regimen 10. Cancer pain continue oxycodone 5 mg 3 times daily Consult palliative medicine 11. Slightly elevated AST and ALT we will continue to monitor with CMP prior to each treatment Patient verbalized understanding and agreed with above plan Documentation from my notes of previous visit on 06/06/2021 was copied and pasted, documentation has been reviewed and edited as necessary and is current for today 06/14/2021 Cyn Ramires MD, FACP CC: Jose Vail M.D. Dr. Gurpreet Parra documented in this encounterOhiohealth Southeastern Medical Center04-01-2022 Miscellaneous Notes* Telephone Encounter - Marilyn Hughes RN - 05/19/2021 9:09 AM EDT Pt with c/o sinus congestion, headache, cough, fatigue, T Max 101.3 last evening, then 'fever broke' afebrile this am. Dr Ramires notified and Z-pack sent to preferred pharmacy. Pt aware to call for worsening symptoms or temp >100.4 . Verbalized acknowledgement. Marilyn Hughes RN documented in this encounterOhiohealth Southeastern Medical Center03-30-2022 Miscellaneous Notes* Telephone Encounter - RHETT Mesa - 05/17/2021 2:31 PM EDT SOCIAL WORK FOLLOW UP NOTE: [facility] Date of service:05/17/2021 Celso Potts is being seen for a follow up social work visit. Today's visit includes: patient TOPICS ADDRESSED: mental health needs Called patient to convey to her behavioral health resources but patient was driving. She will call me later when she can record the information I can provide to her. PLAN: Referral to community resource F/U APPOINTMENT: PRN RHETT Mesa-S [employer] [facility] Oncology documented in this [facility]03-30-2022 Miscellaneous Notes* Telephone Encounter - RHETT Mesa - 05/17/2021 1:58 PM EDT SOCIAL WORK FOLLOW UP NOTE: [facility] Date of service:05/17/2021 Celso Potts is being seen for a follow up social work visit. Today's visit includes: patient TOPICS ADDRESSED: mental health needs Advised patient that SRINIVASAN Garsia from [facility] asked me to give patient local behavioral health resources. I forwarded this request to MATILDE Spear, who is a behavior health social insurance administrator and is expert in these types of resources. I advised patient that Katarzyna should be reaching out to her. PLAN: Continue follow up as needed F/U APPOINTMENT: PRN RHETT Mesa-S Senior Laydown Machine Operator [facility] Oncology documented in this encounterOhiohealth [facility] Center03-30-2022 Instructions* Patient Instructions* Juan Francisco Hutchinson APRN.CNP - 05/17/2021 11:35 AM EDT Juan Francisco Hutchinson NP-C Department of Palliative and Supportive Care Palliative Care - Specialty services in symptom management and support For questions or prescription refills, call: Saturday - Saturday 9AM-5PM Chantal Newberry RN, BSN - Novelty Maker [phone] Please call 5 days in advance Evenings, Weekends, Holidays: [phone] (ask for palliative medicine on-call provider) For appointments, cancellations or reschedule, call: [phone] documented in this encounterOhiohealth [facility]heastern [facility] Center03-30-2022 History of Present illness Narrative* Juan Francisco Hutchinson APRN.CNP - 05/17/2021 11:00 AM EDT PALLIATIVE MEDICINE PROGRESS NOTE SERVICE DATE: 05/17/2021 Primary Site of Disease/Medical Illness: Hodgkin Lymphoma Site of Metastasis: Liver, Lymph nodes, Spleen CHIEF COMPLAINT: follow up on pain and anxiety PERTINENT MEDICAL HISTORY: Celso Potts is a 40 yo female with Hodgkin's Lymphoma diagnosed 01/16/2012 s/p autologous SCT (2013) and several other treatments due to recurrences in that time. She hasundergone palliative radiation to spleen, liver, and lymph nodes per Dr. Del Valle. Her most recent PE T/CT 02/14/2021 demonstrated a complete remission. She is currently treated with Keytruda per Dr. Abimael Ramires. Course has been c/b pulmonary embolus (on AC). She is transferring care to [facility] for palliative care. She has previously followed with Dr. Mosquera (last appt 04/12/2020) for management of anxiety, depression, neuropathy, and pain. Clover Stewart presents today alone. Reports feeling fairly well. Recently returned from vacation with friends in [place] where she had a great time although admits that she struggled to keep up while hiking due to fatigue and debility. Here today to follow up on symptoms including: - pain: she reports pain in mid chest which started after her first round of radiation many years ago described as tightness and aching and also has generalized joint pain associated to psoriatic arthritis. She was previously on treatment for psoriatic arthritis however this caused her skin eruptions to worsen and she opted to stay off treatment as a result. She currently manages pain with PRN oxycodone which she takes 3-4 times per day and helps to maintain her current level of functioning. Denies confusion, oversedation, myoclonus. Also continues to take gabapentin 600 mg TID. - muscle cramps: these have been generalized and admits that no one has been able to explain these for her. States they will occur all day sometimes and cause her to wake at night intermittently. Since Dr. Mosquera increased baclofen and Flexeril to TID at last visit, they have been at bay. She alternates these medications throughout the day with good relief. - fatigue: feels that she wakes rested (taking trazodone at HS per PCP order) and is able to complete house hold chores and ADLs at her own pace. States around 2 PM everyday she hits a wall and fatigue sets in. She naps as needed to help her get through the rest of the day. Also tries to walk everyday on the treadmill for 30-60 minutes. - anxiety: long standing issue which has been associated to multiple appointments and fear of what her scans might show. Feels scans only being twice a year has helped but still feels overwhelmed. She has tried group therapy in the past but doesn't feel like this was for her. She is currently take Ativan everyday and Atarax PRN prescribed by her PCP. Has not tried counseling but is willing. Did not start cymbalta as prescribed by Dr. Mosquera at last visit. Modified ESAS ([place] Symptom Assessment Scale) Information Provided By: Patient Pain: see HPI Nausea: intermittent, mitigated by Compazine Loss of Appetite: None Constipation: None taking colace 2 caps daily Shortness of Breath: on exertion - compliant with respiratory regimen Drowsiness: None Tiredness: see HPI Depression: None Anxiety: see HPI How you feel overall: Good Objective ECOG PERFORMANCE STATUS: 0- Fully active, able to carry on all pre-disease performance w/o restriction. PHYSICAL EXAMINATION: Vital signs: BP 120/72 (BP Site: Right Arm, BP Position: Sitting, BP Cuff Size: Regular Adult) Pulse 88 Temp 36.7 C (98 F) (Oral) LMP 11/18/2012 SpO2 98% Last 1 Encounter Temp Readings: Date: Temp: Temp Src: 04/19/2021 36.8 C (98.3 F) Oral Last 1 Encounter Resp Readings: Date: Resp: 02/15/2021 18 Last 1 Encounter Pulse Readings: Date: Pulse: 04/19/2021 96 Last 1 Encounter BP Readings: Date: BP: 04/19/2021 120/79 General Appearance: No apparent distress and well nourished Skin: No jaundice and No rash Lungs: unlabored effort at rest and on exertion Musculoskeletal: No gross deformity Neuro: Alert and oriented to time place and person and gait normal Psych: Well groomed, Affect congruent with mood and Good eye contact DATA: Diagnostic tests reviewed for today's visit: Most recent labs and imaging results. Estimated Creatinine Clearance: 131.4 mL/min (based on SCr of 0.8 mg/dL). Opioid Management: Yes Indication for Opioid Prescribing: Cancer related pain ORT-OUD Score: 2 A score of 3 or higher may indicate a higher risk for future development of aberrant drug related behavior or opioid use disorder. Informed consent for chronic opiate therapy obtained and written pain agreement: On file Naloxone offered?: Previously prescribed Course of treatment, patient's response and adherence to the prescribed treatment plan reviewed, including non-pharmacological and non-opioid treatment modalities? Yes Have any complications or exacerbations of the underlying condition causing the pain been reviewed?Yes How much does pain impede patient s ability to engage in work or other purposeful activities, interfere with your activities of daily living, physical activity, or quality of your family life and social activities? Significantly Aberrancies in pain panel? No Any aberrant drug related behaviors since last visit? No Rationale for continuing opioid treatment: Improved comfort and function based on an ongoing functional assessment Benefits of Opioid Therapy outweigh risks: Yes Prescribed Morphine Equivalent Daily Dose (MEDD): Yes > 50 MEDD Yes, I am certified in Hospice and Palliative Care, Hematology, Medical Oncology or Pain Medicine OARRS Checked: PDMP website checked and validated. All prescriptions have been APPROPRIATELY filled. No suspiciousactivity was identified. 05/17/2021 by Juan Francisco Hutchinson APRN.CLINICAL TRIAL DATA MANAGER Urine Screen Lab Results Component Value Date UAMPH Negative 02/24/2021 UBARB2 Negative 02/24/2021 UBENZ Negative 02/24/2021 UQBUPRE <20 02/24/2021 UQNORBUP <20 02/24/2021 UCOC2 Negative 02/24/2021 UQCANN <16 02/24/2021 UOPI Negative 02/24/2021 UOXYC Negative 02/24/2021 UPCP Negative 02/24/2021 UTHC Negative 02/24/2021 UETOH <11 02/24/2021 Urine Panel: Lab Results Component Value Date Cannabinoid Quant, Urine <16 02/24/2021 Benzoylecognine Quant, Urine <24 02/24/2021 6-Acetylmorphine Quant, Urine <5 02/24/2021 Amphetamine Quant, Urine <5 02/24/2021 Methamphetamine Quant, Urine <8 02/24/2021 Buprenorphine Quant, Urine <20 02/24/2021 Norbuprenorphine Quant, Urine <20 02/24/2021 Methadone Quant, Urine <16 02/24/2021 EDDP Quant, Urine <6 02/24/2021 Tramadol Quant, Urine <25 02/24/2021 Desmethyltramadol Quant, Urine <20 02/24/2021 Fentanyl Quant, Urine <6 02/24/2021 Norfentanyl Quant, Urine <6 02/24/2021 Codeine Quant, Urine <11 02/24/2021 Morphine Quant, Urine <10 02/24/2021 Dihydrocodeine Quant, Urine <5 02/24/2021 Hydrocodone Quant, Urine <8 02/24/2021 Oxycodone Quant, Urine <10 02/24/2021 Hydromorphone Quant, Urine <5 02/24/2021 Oxymorphone Quant, Urine <5 02/24/2021 Creatinine,Ur Pain Ocasio 70.2 02/24/2021 Urine pH, Pain Ocasio 6.3 02/24/2021 Specific [place],Ur Pain Ocasio 1.012 02/24/2021 Oxidants,Ur 46 02/24/2021 Specimen Quality, Ur Pain Ocasio Specimen quality results within acceptable limits. 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 Ramires (G89.3) Cancer related pain - nociceptive somatic pain associated to prior radiation effects c/b joint pain associated to psoriatic arthritis - managed well presently - continue oxycodone 10 mg Q4H PRN (#120) - opioid agreement and urine previously completed by Dr. Mosquera - reviewed - continue gabapentin 600 mg TID - consider addition of duloxetine if worsening (did not start after last visit) (R25.2) Muscle cramps - much improved and well controlled - continue baclofen 10 mg TID - continue cyclobenzaprine 10 mg TID PRN (F41.9) Anxiety - long standing problem - current medications managed per PCP including atarax and ativan - highly encouraged establishing with counselor - she agreed. Will reach out to Abimael Capone to help with resources near her home. - would advise addition of SSRI or SNRI (Cymbalta) if persisting. Medical Decision Making: Problems: Moderate: 2+ stable chronic illnesses Risk: High: Drug therapy requiring intensive monitoring Medical Decision Making Level: 4 - Moderate Existence of Advance Directives: Unknown Next Visit: 6-8 Weeks in person Juan Francisco Hutchinson APRN.CNP May 17, 2021 7:01 AM documented in this encounterOhiohealth [facility] Center10-06-2021 NoteHNO ID: [id number] Author: RT Mir(R) Service: ? Author Type: Technologist Type: Progress Notes Filed: 11/23/2020 11:00 AM Note Text: Radiology Service Progress Note PATIENT NAME: Celso Potts DATE OF SERVICE: November 23, 2020 TIME: 10:59 AM PATIENT IDENTITY VERIFICATION COMPLETED USING TWO (2) IDENTIFIERS: Name and Date of confirmed by patient verbally and Name and Date of confirmed by identification band. FALL SCREENING: Has the patient had 2 falls in the last year or 1 fall with injury or currently using an Ambulatory Assistive Device (Walker, Cane, Wheelchair, Crutches, etc.)? No PATIENT GENDER DATA: Female. status: : No status: NO. PATIENT RELEVANT IMPLANT DATA REVIEWED: Not Applicable RADIOLOGY DEPARTMENT: General X-ray: Exam(s) Completed: Upper Extremity X-Ray(s): Elbow, left PERIPHERAL IV DATA: Not applicable SIGNED BY: RT Mir(R) November 23, 2020 10:59 AMCedar City [id number] History of Past illness Narrative* Problem Noted Date Diagnosed Date Resolved Date Radiation induced neuropathy 10/18/2020 03/07/2023 Menorrhagia with regular cycle 03/15/2017 01/01/2018 Overview: Added automatically from request for surgery [id number] History of pulmonary embolism 04/25/2016 01/01/2018 Neoplastic (malignant) related fatigue 04/25/2016 01/01/2018 Hidradenitis suppurativa 01/17/2016 Vitamin D deficiency 06/09/2015 016 HyperCKemia 05/06/2015 12/26/2015 Elevated aldolase level 05/06/201508/2015 Chronic pain of both knees 05/06/2015 1 02/24/2015 Pain in joint, multiple sites 05/06/2015 12/26/2015 Myalgia 05/06/2015 12/26/2015 Fatigue 05/06/2015 12/26/2015 Malaise and fatigue 03/24/2015 12/26/19 16 Gastroesophageal reflux dise ase without esophagitis 02/23/2015 12/26/2015 Laryngitis 02/23/2015 12/26/2015 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 10/28/2014 12/26/2015 Papanicolaou smear of cervix with low grade squamous intraepithelial lesion (LGSIL) 10/24/2014 12/25/2019 Pain in joint, ankle and foot 09/27/2014 12/26/2015 ASCUS favor dysplasia 09/18/20142015 Visit for gynecologic examination 09/07/2014 12/26/2015 Postmenopausal HRT (hormone replacement therapy) 08/18/2014 12/26/2015 Overview: offered Gait abnormality 07/22/2014 12/26/2015 Weakness of both legs 07/22/20142015 Sprain of ankle, left 06/29/20142015 PCP (pneumocystis jiroveci pneumonia) 06/03/2014 12/26/2015 Acute respiratory failure with hypoxemia 05/11/2014 12/26/2015 Overview: Increased O2 requirement overnight (2L to 5L) - bronchoscopy with BAL/TBLB tomorrow 8 AM. - NPO from midnight - hold tonight dose of lovenox. Radiation pneumonitis 05/11/20142015 Overview: 40 mg prednisone daily Immunodeficiency with predom inant T-cell defect, unspecified 03/11/2014 12/26/2015 Urgency of micturation 03/04/201412/25 Urinary frequency 03/04/2014 12/26/2015 Arm pain, left 07/06/2013 12/26/2015 Back pain without radiation 07/06/2013 12/26/2015 Abnormal finding on imaging 07/06/2013 12/26/2015 Elevated sed rate 07/06/2013 12/26/2015 Hyperpigmentation of skin 03/31/2013 Overview: --resolved --bilateral breast tissue and axilla --order mycolog cream --monitor Diarrhea 03/31/2013 12/26/2015 Overview: - c diff pending Mucositis (ulcerative) due t o antineoplastic therapy 03/24/2013 12/26/2015 Overview: --improved --oxy prn --mouth care measures. Reflux 03/23/2013 12/26/2015 Overview: --improved with protonix Elevated LFTs 03/22/2013 12/26/2015 Overview: --increased AST ALT during chemo, resolved. Excess fluid volume 03/21/2013 12/26/19 16 Overview: --diuresis as needed --continue to monitor volume status CINV (chemotherapy-induced n ausea and vomiting) 03/17/2013 10/13/2015 Overview: --Resolved --Ativan PRN (none used) Peripheral neuropathy 03/16/20132015 Overview: --gabapentin 300mg TID with increased symptoms, bedtime dose of gabapentin increased to 600mg with improvement reported, continue DVT prophylaxis 03/16/2013 12/26/2015 Overview: --platelet count decreasing, d/c heparin SQ --encourage ambulation Insomnia 03/16/2013 12/26/2015 Overview: --ambien PRN at HS, with relief, but with vivid dreams, ambien d/c --restoril at 30mg PRN at HS with relief, continue Chronic chest pain 03/16/2013 6 Overview: --now resolved --since Hodgkin lymphoma diagnosis per patient Hospital discharge follow-up 03/16/2013 12/26/2015 Overview: --Patient will need to follow up with Dr. Unger after discharge Tachycardia 03/16/2013 12/26/2015 Overview: --patient taking atenolol 100mg BID at home, now BP running lower, decreased atenolol dose to 50mg BID with hypotension. --increase to 75mg BID, d/t tachycardia(HRs >110 while afebrile), HR now controlled, continue --monitor closely Electrolyte and fluid disord ers not elsewhere classified 02/16/2013 12/26/2015 DISPOSITION AND FOLLOW-UP 10/27/2012 Overview: 32 yo female from [place], [place]. Family involved with care, at bedside. plan to discharge patient home - will arrange with case management for post op care as needed - follow up in OPD in 7-10 days Post-op pain 10/27/2012 12/26/2015 Overview: currently well controlled with EDUCATION COURSES SALES REPRESENTATIVE. will start PO pain meds today 10/27. tolerating percocet, pain relatively well controlled. Hodgkin's disease with nodular sclerosis 05/27/2012 12/26/2015 Overview: Oncology history (per Dr. 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 Hodgkin's disease, unspecified 02/05/2012 05/11/2014 Vaginal bleeding 12/26/2015 Overview: --likely from thrombocytopenia. No menses in prior 8 months. Scant amount reported on 03/29 and 03/30, now resolved --monitor bleeding by counting pads --should f/u with her [employer] provider after BMT Premature menopause 12/26/19 16 Postmenopausal atrophic vaginitis 12/26/2015 Dyspareunia 12/26/2015 documented as of this encounter (statuses as of 03/28/2023) [facility] History of Past illness Narrative* Problem Noted Date Diagnosed Date Resolved Date Radiation induced neuropathy 10/18/2020 03/07/2023 Menorrhagia with regular cycle 03/15/2017 01/01/2018 Overview: Added automatically from request for surgery [id number] History of pulmonary embolism 04/25/2016 01/01/2018 Neoplastic (malignant) related fatigue 04/25/2016 01/01/2018 Hidradenitis suppurativa 01/17/2016 Vitamin D deficiency 06/09/2015 016 HyperCKemia 05/06/2015 12/26/2015 Elevated aldolase level 05/06/201508/2015 Chronic pain of both knees 05/06/2015 1 02/24/2015 Pain in joint, multiple sites 05/06/2015 12/26/2015 Myalgia 05/06/2015 12/26/2015 Fatigue 05/06/2015 12/26/2015 Malaise and fatigue 03/24/2015 12/26/19 16 Gastroesophageal reflux dise ase without esophagitis 02/23/2015 12/26/2015 Laryngitis 02/23/2015 12/26/2015 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 10/28/2014 12/26/2015 Papanicolaou smear of cervix with low grade squamous intraepithelial lesion (LGSIL) 10/24/2014 12/25/2019 Pain in joint, ankle and foot 09/27/2014 12/26/2015 ASCUS favor dysplasia 09/18/20142015 Visit for gynecologic examination 09/07/2014 12/26/2015 Postmenopausal HRT (hormone replacement therapy) 08/18/2014 12/26/2015 Overview: offered Gait abnormality 07/22/2014 12/26/2015 Weakness of both legs 07/22/20142015 Sprain of ankle, left 06/29/20142015 PCP (pneumocystis jiroveci pneumonia) 06/03/2014 12/26/2015 Acute respiratory failure with hypoxemia 05/11/2014 12/26/2015 Overview: Increased O2 requirement overnight (2L to 5L) - bronchoscopy with BAL/TBLB tomorrow 8 AM. - NPO from midnight - hold tonight dose of lovenox. Radiation pneumonitis 05/11/20142015 Overview: 40 mg prednisone daily Immunodeficiency with predom inant T-cell defect, unspecified 03/11/2014 12/26/2015 Urgency of micturation 03/04/201412/25 Urinary frequency 03/04/2014 12/26/2015 Arm pain, left 07/06/2013 12/26/2015 Back pain without radiation 07/06/2013 12/26/2015 Abnormal finding on imaging 07/06/2013 12/26/2015 Elevated sed rate 07/06/2013 12/26/2015 Hyperpigmentation of skin 03/31/2013 Overview: --resolved --bilateral breast tissue and axilla --order mycolog cream --monitor Diarrhea 03/31/2013 12/26/2015 Overview: - c diff pending Mucositis (ulcerative) due t o antineoplastic therapy 03/24/2013 12/26/2015 Overview: --improved --oxy prn --mouth care measures. Reflux 03/23/2013 12/26/2015 Overview: --improved with protonix Elevated LFTs 03/22/2013 12/26/2015 Overview: --increased AST ALT during chemo, resolved. Excess fluid volume 03/21/2013 12/26/19 16 Overview: --diuresis as needed --continue to monitor volume status CINV (chemotherapy-induced n ausea and vomiting) 03/17/2013 10/13/2015 Overview: --Resolved --Ativan PRN (none used) Peripheral neuropathy 03/16/20132015 Overview: --gabapentin 300mg TID with increased symptoms, bedtime dose of gabapentin increased to 600mg with improvement reported, continue DVT prophylaxis 03/16/2013 12/26/2015 Overview: --platelet count decreasing, d/c heparin SQ --encourage ambulation Insomnia 03/16/2013 12/26/2015 Overview: --ambien PRN at HS, with relief, but with vivid dreams, ambien d/c --restoril at 30mg PRN at HS with relief, continue Chronic chest pain 03/16/2013 6 Overview: --now resolved --since Hodgkin lymphoma diagnosis per patient Hospital discharge follow-up 03/16/2013 12/26/2015 Overview: --Patient will need to follow up with Dr. Unger after discharge Tachycardia 03/16/2013 12/26/2015 Overview: --patient taking atenolol 100mg BID at home, now BP running lower, decreased atenolol dose to 50mg BID with hypotension. --increase to 75mg BID, d/t tachycardia(HRs >110 while afebrile), HR now controlled, continue --monitor closely Electrolyte and fluid disord ers not elsewhere classified 02/16/2013 12/26/2015 DISPOSITION AND FOLLOW-UP 10/27/2012 Overview: 32 yo female from [place], [place]. Family involved with care, at bedside. plan to discharge patient home - will arrange with case management for post op care as needed - follow up in OPD in 7-10 days Post-op pain 10/27/2012 12/26/2015 Overview: currently well controlled with EDUCATION COURSES SALES REPRESENTATIVE. will start PO pain meds today 10/27. tolerating percocet, pain relatively well controlled. Hodgkin's disease with nodular sclerosis 05/27/2012 12/26/2015 Overview: Oncology history (per Dr. 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 Hodgkin's disease, unspecified 02/05/2012 05/11/2014 Vaginal bleeding 12/26/2015 Overview: --likely from thrombocytopenia. No menses in prior 8 months. Scant amount reported on 03/29 and 03/30, now resolved --monitor bleeding by counting pads --should f/u with her [employer] provider after BMT Premature menopause 12/26/19 16 Postmenopausal atrophic vaginitis 12/26/2015 Dyspareunia 12/26/2015 documented as of this encounter (statuses as of 03/28/2023) [facility] History of Past illness Narrative* Problem Noted Date Diagnosed Date Resolved Date Radiation induced neuropathy 10/18/2020 03/07/2023 Menorrhagia with regular cycle 03/15/2017 01/01/2018 Overview: Added automatically from request for surgery [id number] History of pulmonary embolism 04/25/2016 01/01/2018 Neoplastic (malignant) related fatigue 04/25/2016 01/01/2018 Hidradenitis suppurativa 01/17/2016 Vitamin D deficiency 06/09/2015 016 HyperCKemia 05/06/2015 12/26/2015 Elevated aldolase level 05/06/201508/2015 Chronic pain of both knees 05/06/2015 1 02/24/2015 Pain in joint, multiple sites 05/06/2015 12/26/2015 Myalgia 05/06/2015 12/26/2015 Fatigue 05/06/2015 12/26/2015 Malaise and fatigue 03/24/2015 12/26/19 16 Gastroesophageal reflux dise ase without esophagitis 02/23/2015 12/26/2015 Laryngitis 02/23/2015 12/26/2015 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 10/28/2014 12/26/2015 Papanicolaou smear of cervix with low grade squamous intraepithelial lesion (LGSIL) 10/24/2014 12/25/2019 Pain in joint, ankle and foot 09/27/2014 12/26/2015 ASCUS favor dysplasia 09/18/20142015 Visit for gynecologic examination 09/07/2014 12/26/2015 Postmenopausal HRT (hormone replacement therapy) 08/18/2014 12/26/2015 Overview: offered Gait abnormality 07/22/2014 12/26/2015 Weakness of both legs 07/22/20142015 Sprain of ankle, left 06/29/20142015 PCP (pneumocystis jiroveci pneumonia) 06/03/2014 12/26/2015 Acute respiratory failure with hypoxemia 05/11/2014 12/26/2015 Overview: Increased O2 requirement overnight (2L to 5L) - bronchoscopy with BAL/TBLB tomorrow 8 AM. - NPO from midnight - hold tonight dose of lovenox. Radiation pneumonitis 05/11/20142015 Overview: 40 mg prednisone daily Immunodeficiency with predom inant T-cell defect, unspecified 03/11/2014 12/26/2015 Urgency of micturation 03/04/201412/25 Urinary frequency 03/04/2014 12/26/2015 Arm pain, left 07/06/2013 12/26/2015 Back pain without radiation 07/06/2013 12/26/2015 Abnormal finding on imaging 07/06/2013 12/26/2015 Elevated sed rate 07/06/2013 12/26/2015 Hyperpigmentation of skin 03/31/2013 Overview: --resolved --bilateral breast tissue and axilla --order mycolog cream --monitor Diarrhea 03/31/2013 12/26/2015 Overview: - c diff pending Mucositis (ulcerative) due t o antineoplastic therapy 03/24/2013 12/26/2015 Overview: --improved --oxy prn --mouth care measures. Reflux 03/23/2013 12/26/2015 Overview: --improved with protonix Elevated LFTs 03/22/2013 12/26/2015 Overview: --increased AST ALT during chemo, resolved. Excess fluid volume 03/21/2013 12/26/19 Overview: --diuresis as needed --continue to monitor volume status CINV (chemotherapy-induced n ausea and vomiting) 03/17/2013 10/13/2015 Overview: --Resolved --Ativan PRN (none used) Peripheral neuropathy 03/16/20132015 Overview: --gabapentin 300mg TID with increased symptoms, bedtime dose of gabapentin increased to 600mg with improvement reported, continue DVT prophylaxis 03/16/2013 12/26/2015 Overview: --platelet count decreasing, d/c heparin SQ --encourage ambulation Insomnia 03/16/2013 12/26/2015 Overview: --ambien PRN at HS, with relief, but with vivid dreams, ambien d/c --restoril at 30mg PRN at HS with relief, continue Chronic chest pain 03/16/2013 6 Overview: --now resolved --since Hodgkin lymphoma diagnosis per patient Hospital discharge follow-up 03/16/2013 12/26/2015 Overview: --Patient will need to follow up with Dr. Unger after discharge Tachycardia 03/16/2013 12/26/2015 Overview: --patient taking atenolol 100mg BID at home, now BP running lower, decreased atenolol dose to 50mg BID with hypotension. --increase to 75mg BID, d/t tachycardia(HRs >110 while afebrile), HR now controlled, continue --monitor closely Electrolyte and fluid disord ers not elsewhere classified 02/16/2013 12/26/2015 DISPOSITION AND FOLLOW-UP 10/27/2012 Overview: 32 yo female from [place], [place]. Family involved with care, at bedside. plan to discharge patient home - will arrange with case management for post op care as needed - follow up in OPD in 7-10 days Post-op pain 10/27/2012 12/26/2015 Overview: currently well controlled with [employer] SAL[employer] REPRESENTATIVE. will start PO pain meds today 10/27. tolerating percocet, pain relatively well controlled. Hodgkin's disease with nodular sclerosis 05/27/2012 12/26/2015 Overview: Oncology history (per Dr. 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 Hodgkin's disease, unspecified 02/05/2012 05/11/2014 Vaginal bleeding 12/26/2015 Overview: --likely from thrombocytopenia. No menses in prior 8 months. Scant amount reported on 03/29 and 03/30, now resolved --monitor bleeding by counting pads --should f/u with her [employer] provider after BMT Premature menopause 12/26/19 16 Postmenopausal atrophic vaginitis 12/26/2015 Dyspareunia 12/26/2015 documented as of this encounter (statuses as of 03/28/2023) [facility]08-[facility]21 History of Past illness Narrative* Problem Noted Date Diagnosed Date Resolved Date Radiation induced neuropathy 10/18/2020 03/07/2023 Menorrhagia with regular cycle 03/15/2017 01/01/2018 Overview: Added automatically from request for surgery [id number] History of pulmonary embolism 04/25/2016 01/01/2018 Neoplastic (malignant) related fatigue 04/25/2016 01/01/2018 Hidradenitis suppurativa 01/17/2016 Vitamin D deficiency 06/09/2015 016 HyperCKemia 05/06/2015 12/26/2015 Elevated aldolase level 05/06/201508/2015 Chronic pain of both knees 05/06/2015 1 02/24/2015 Pain in joint, multiple sites 05/06/2015 12/26/2015 Myalgia 05/06/2015 12/26/2015 Fatigue 05/06/2015 12/26/2015 Malaise and fatigue 03/24/2015 12/26/19 16 Gastroesophageal reflux dise ase without esophagitis 02/23/2015 12/26/2015 Laryngitis 02/23/2015 12/26/2015 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 10/28/2014 12/26/2015 Papanicolaou smear of cervix with low grade squamous intraepithelial lesion (LGSIL) 10/24/2014 12/25/2019 Pain in joint, ankle and foot 09/27/2014 12/26/2015 ASCUS favor dysplasia 09/18/20142015 Visit for gynecologic examination 09/07/2014 12/26/2015 Postmenopausal HRT (hormone replacement therapy) 08/18/2014 12/26/2015 Overview: offered Gait abnormality 07/22/2014 12/26/2015 Weakness of both legs 07/22/20142015 Sprain of ankle, left 06/29/20142015 PCP (pneumocystis jiroveci pneumonia) 06/03/2014 12/26/2015 Acute respiratory failure with hypoxemia 05/11/2014 12/26/2015 Overview: Increased O2 requirement overnight (2L to 5L) - bronchoscopy with BAL/TBLB tomorrow 8 AM. - NPO from midnight - hold tonight dose of lovenox. Radiation pneumonitis 05/11/20142015 Overview: 40 mg prednisone daily Immunodeficiency with predom inant T-cell defect, unspecified 03/11/2014 12/26/2015 Urgency of micturation 03/04/201412/25 Urinary frequency 03/04/2014 12/26/2015 Arm pain, left 07/06/2013 12/26/2015 Back pain without radiation 07/06/2013 12/26/2015 Abnormal finding on imaging 07/06/2013 12/26/2015 Elevated sed rate 07/06/2013 12/26/2015 Hyperpigmentation of skin 03/31/2013 Overview: --resolved --bilateral breast tissue and axilla --order mycolog cream --monitor Diarrhea 03/31/2013 12/26/2015 Overview: - c diff pending Mucositis (ulcerative) due t o antineoplastic therapy 03/24/2013 12/26/2015 Overview: --improved --oxy prn --mouth care measures. Reflux 03/23/2013 12/26/2015 Overview: --improved with protonix Elevated LFTs 03/22/2013 12/26/2015 Overview: --increased AST ALT during chemo, resolved. Excess fluid volume 03/21/2013 12/26/19 16 Overview: --diuresis as needed --continue to monitor volume status CINV (chemotherapy-induced n ausea and vomiting) 03/17/2013 10/13/2015 Overview: --Resolved --Ativan PRN (none used) Peripheral neuropathy 03/16/20132015 Overview: --gabapentin 300mg TID with increased symptoms, bedtime dose of gabapentin increased to 600mg with improvement reported, continue DVT prophylaxis 03/16/2013 12/26/2015 Overview: --platelet count decreasing, d/c heparin SQ --encourage ambulation Insomnia 03/16/2013 12/26/2015 Overview: --ambien PRN at HS, with relief, but with vivid dreams, ambien d/c --restoril at 30mg PRN at HS with relief, continue Chronic chest pain 03/16/2013 6 Overview: --now resolved --since Hodgkin lymphoma diagnosis per patient Hospital discharge follow-up 03/16/2013 12/26/2015 Overview: --Patient will need to follow up with Dr. Unger after discharge Tachycardia 03/16/2013 12/26/2015 Overview: --patient taking atenolol 100mg BID at home, now BP running lower, decreased atenolol dose to 50mg BID with hypotension. --increase to 75mg BID, d/t tachycardia(HRs >110 while afebrile), HR now controlled, continue --monitor closely Electrolyte and fluid disord ers not elsewhere classified 02/16/2013 12/26/2015 DISPOSITION AND FOLLOW-UP 10/27/2012 Overview: 32 yo female from [place], [place]. Family involved with care, at bedside. plan to discharge patient home - will arrange with case management for post op care as needed - follow up in OPD in 7-10 days Post-op pain 10/27/2012 12/26/2015 Overview: currently well controlled with [employer] REPRESENTATIVE. will start PO pain meds today 10/27. tolerating percocet, pain relatively well controlled. Hodgkin's disease with nodular sclerosis 05/27/2012 12/26/2015 Overview: Oncology history (per Dr. 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 Hodgkin's disease, unspecified 02/05/2012 05/11/2014 Vaginal bleeding 12/26/2015 Overview: --likely from thrombocytopenia. No menses in prior 8 months. Scant amount reported on 03/29 and 03/30, now resolved --monitor bleeding by counting pads --should f/u with her [employer] provider after BMT Premature menopause 12/26/19 16 Postmenopausal atrophic vaginitis 12/26/2015 Dyspareunia 12/26/2015 documented as of this encounter (statuses as of 04/01/2023) [facility]01[facility]2018 History of Past illness Narrative* Problem Noted Date Resolved Date Menorrhagia with regular cycle 03/15/2017 1 03/03/2017 Overview: Added automatically from request for surgery [id number] History of pulmonary embolism 04/25/2016 Neoplastic (malignant) related fatigue 7 01/01/2018 Hidradenitis suppurativa 01/17/2016 018 Vitamin D deficiency 06/09/2015 12/26/2015 HyperCKemia 05/06/2015 12/26/2015 Elevated aldolase level 05/06/2015 12/26/19 16 Chronic pain of both knees 05/06/201512/25 Pain in joint, multiple sites 05/06/2015 Myalgia 05/06/2015 12/26/2015 Fatigue 05/06/2015 12/26/2015 Malaise and fatigue 03/24/2015 12/26/2015 Gastroesophageal reflux disease without esophagi tis 02/23/2015 12/26/2015 Laryngitis 02/23/2015 12/26/2015 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 10/28/2014 12/26/2015 Papanicolaou smear of cervix with low grade squamous intraepithelial lesion (LGSIL) 10/24/2014 12/25/2019 Pain in joint, ankle and foot 09/27/2014 ASCUS favor dysplasia 09/18/2014 12/26/2015 Visit for gynecologic examination 09/07/2014 12/26/2015 Postmenopausal HRT (hormone replacement therapy) 08/18/2014 12/26/2015 Overview: offered Gait abnormality 07/22/2014 12/26/2015 Weakness of both legs 07/22/2014 12/26/2015 Sprain of ankle, left 06/29/2014 12/26/2015 PCP (pneumocystis jiroveci pneumonia) 06/03/2014 12/26/2015 Acute respiratory failure with hypoxemia 015 12/26/2015 Overview: Increased O2 requirement overnight (2L to 5L) - bronchoscopy with BAL/TBLB tomorrow 8 AM. - NPO from midnight - hold tonight dose of lovenox. Radiation pneumonitis 05/11/2014 12/26/2015 Overview: 40 mg prednisone daily Immunodeficiency with predominant T-cell defect, unspecified 03/11/2014 12/26/2015 Urgency of micturation 03/04/2014 6 Urinary frequency 03/04/2014 12/26/2015 Arm pain, left 07/06/2013 12/26/2015 Back pain without radiation 07/06/201308/2015 Abnormal finding on imaging 07/06/201308/2015 Elevated sed rate 07/06/2013 12/26/2015 Hyperpigmentation of skin 03/31/20132015 Overview: --resolved --bilateral breast tissue and axilla --order mycolog cream --monitor Diarrhea 03/31/2013 12/26/2015 Overview: - c diff pending Mucositis (ulcerative) due to antineoplastic the rapy 03/24/2013 12/26/2015 Overview: --improved --oxy prn --mouth care measures. Reflux 03/23/2013 12/26/2015 Overview: --improved with protonix Elevated LFTs 03/22/2013 12/26/2015 Overview: --increased AST ALT during chemo, resolved. Excess fluid volume 03/21/2013 12/26/2015 Overview: --diuresis as needed --continue to monitor volume status CINV (chemotherapy-induced nausea and vomiting) 03/17/2013 10/13/2015 Overview: --Resolved --Ativan PRN (none used) Peripheral neuropathy 03/16/2013 12/26/2015 Overview: --gabapentin 300mg TID with increased symptoms, bedtime dose of gabapentin increased to 600mg with improvement reported, continue DVT prophylaxis 03/16/2013 12/26/2015 Overview: --platelet count decreasing, d/c heparin SQ --encourage ambulation Insomnia 03/16/2013 12/26/2015 Overview: --ambien PRN at HS, with relief, but with vivid dreams, bright d/c --restoril at 30mg PRN at HS with relief, continue Chronic chest pain 03/16/2013 12/26/2015 Overview: --now resolved --since Hodgkin lymphoma diagnosis per patient Hospital discharge follow-up 03/16/201308/2015 Overview: --Patient will need to follow up with Dr. Unger after discharge Tachycardia 03/16/2013 12/26/2015 Overview: --patient taking atenolol 100mg BID at home, now BP running lower, decreased atenolol dose to 50mg BID with hypotension. --increase to 75mg BID, d/t tachycardia(HRs >110 while afebrile), HR now controlled, continue --monitor closely Electrolyte and fluid disorders not elsewhere cl assified 02/16/2013 12/26/2015 DISPOSITION AND FOLLOW-UP 10/27/20122015 Overview: 32 yo female from [place], [place]. Family involved with care, at bedside. plan to discharge patient home - will arrange with case management for post op care as needed - follow up in OPD in 7-10 days Post-op pain 10/27/2012 12/26/2015 Overview: currently well controlled with [employer] REPRESENTATIVE. will start PO pain meds today 10/27. tolerating percocet, pain relatively well controlled. Hodgkin's disease with nodular sclerosis 013 12/26/2015 Overview: Oncology history (per Dr. 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 Hodgkin's disease, unspecified 02/05/2012 0 05/11/2014 Vaginal bleeding 12/26/2015 Overview: --likely from thrombocytopenia. No menses in prior 8 months. Scant amount reported on 03/29 and 03/30, now resolved --monitor bleeding by counting pads --should f/u with her [employer] provider after BMT Premature menopause 12/26/2015 Postmenopausal atrophic vaginitis 12/26/2015 Dyspareunia 12/26/2015 documented as of this encounter (statuses as of 05/17/2021) [facility]01[facility] History of Past illness Narrative* Problem Noted Date Resolved Date Menorrhagia with regular cycle 03/15/2017 1 03/03/2017 Overview: Added automatically from request for surgery [id number] History of pulmonary embolism 04/25/2016 Neoplastic (malignant) related fatigue 7 01/01/2018 Hidradenitis suppurativa 01/17/2016 018 Vitamin D deficiency 06/09/2015 12/26/2015 HyperCKemia 05/06/2015 12/26/2015 Elevated aldolase level 05/06/2015 12/26/19 16 Chronic pain of both knees 05/06/201512/25 Pain in joint, multiple sites 05/06/2015 Myalgia 05/06/2015 12/26/2015 Fatigue 05/06/2015 12/26/2015 Malaise and fatigue 03/24/2015 12/26/2015 Gastroesophageal reflux disease without esophagi tis 02/23/2015 12/26/2015 Laryngitis 02/23/2015 12/26/2015 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 10/28/2014 12/26/2015 Papanicolaou smear of cervix with low grade squamous intraepithelial lesion (LGSIL) 10/24/2014 12/25/2019 Pain in joint, ankle and foot 09/27/2014 ASCUS favor dysplasia 09/18/2014 12/26/2015 Visit for gynecologic examination 09/07/2014 12/26/2015 Postmenopausal HRT (hormone replacement therapy) 08/18/2014 12/26/2015 Overview: offered Gait abnormality 07/22/2014 12/26/2015 Weakness of both legs 07/22/2014 12/26/2015 Sprain of ankle, left 06/29/2014 12/26/2015 PCP (pneumocystis jiroveci pneumonia) 06/03/2014 12/26/2015 Acute respiratory failure with hypoxemia 015 12/26/2015 Overview: Increased O2 requirement overnight (2L to 5L) - bronchoscopy with BAL/TBLB tomorrow 8 AM. - NPO from midnight - hold tonight dose of lovenox. Radiation pneumonitis 05/11/2014 12/26/2015 Overview: 40 mg prednisone daily Immunodeficiency with predominant T-cell defect, unspecified 03/11/2014 12/26/2015 Urgency of micturation 03/04/2014 6 Urinary frequency 03/04/2014 12/26/2015 Arm pain, left 07/06/2013 12/26/2015 Back pain without radiation 07/06/201308/2015 Abnormal finding on imaging 07/06/201308/2015 Elevated sed rate 07/06/2013 12/26/2015 Hyperpigmentation of skin 03/31/20132015 Overview: --resolved --bilateral breast tissue and axilla --order mycolog cream --monitor Diarrhea 03/31/2013 12/26/2015 Overview: - c diff pending Mucositis (ulcerative) due to antineoplastic the rapy 03/24/2013 12/26/2015 Overview: --improved --oxy prn --mouth care measures. Reflux 03/23/2013 12/26/2015 Overview: --improved with protonix Elevated LFTs 03/22/2013 12/26/2015 Overview: --increased AST ALT during chemo, resolved. Excess fluid volume 03/21/2013 12/26/2015 Overview: --diuresis as needed --continue to monitor volume status CINV (chemotherapy-induced nausea and vomiting) 03/17/2013 10/13/2015 Overview: --Resolved --Ativan PRN (none used) Peripheral neuropathy 03/16/2013 12/26/2015 Overview: --gabapentin 300mg TID with increased symptoms, bedtime dose of gabapentin increased to 600mg with improvement reported, continue DVT prophylaxis 03/16/2013 12/26/2015 Overview: --platelet count decreasing, d/c heparin SQ --encourage ambulation Insomnia 03/16/2013 12/26/2015 Overview: --ambien PRN at HS, with relief, but with vivid dreams, ambien d/c --restoril at 30mg PRN at HS with relief, continue Chronic chest pain 03/16/2013 12/26/2015 Overview: --now resolved --since Hodgkin lymphoma diagnosis per patient Hospital discharge follow-up 03/16/201308/2015 Overview: --Patient will need to follow up with Dr. Unger after discharge Tachycardia 03/16/2013 12/26/2015 Overview: --patient taking atenolol 100mg BID at home, now BP running lower, decreased atenolol dose to 50mg BID with hypotension. --increase to 75mg BID, d/t tachycardia(HRs >110 while afebrile), HR now controlled, continue --monitor closely Electrolyte and fluid disorders not elsewhere cl assified 02/16/2013 12/26/2015 DISPOSITION AND FOLLOW-UP 10/27/20122015 Overview: 32 yo female from [place], [place]. Family involved with care, at bedside. plan to discharge patient home - will arrange with case management for post op care as needed - follow up in OPD in 7-10 days Post-op pain 10/27/2012 12/26/2015 Overview: currently well controlled with [employer] REPRESENTATIVE. will start PO pain meds today 10/27. tolerating percocet, pain relatively well controlled. Hodgkin's disease with nodular sclerosis 013 12/26/2015 Overview: Oncology history (per Dr. 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 Hodgkin's disease, unspecified 02/05/2012 0 05/11/2014 Vaginal bleeding 12/26/2015 Overview: --likely from thrombocytopenia. No menses in prior 8 months. Scant amount reported on 03/29 and 03/30, now resolved --monitor bleeding by counting pads --should f/u with her [employer] provider after BMT Premature menopause 12/26/2015 Postmenopausal atrophic vaginitis 12/26/2015 Dyspareunia 12/26/2015 documented as of this encounter (statuses as of 05/17/2021) [facility] History of Past illness Narrative* Problem Noted Date Resolved Date Menorrhagia with regular cycle 03/15/2017 1 03/03/2017 Overview: Added automatically from request for surgery [id number] History of pulmonary embolism 04/25/2016 Neoplastic (malignant) related fatigue 7 01/01/2018 Hidradenitis suppurativa 01/17/2016 018 Vitamin D deficiency 06/09/2015 12/26/2015 HyperCKemia 05/06/2015 12/26/2015 Elevated aldolase level 05/06/2015 12/26/19 16 Chronic pain of both knees 05/06/201512/25 Pain in joint, multiple sites 05/06/2015 Myalgia 05/06/2015 12/26/2015 Fatigue 05/06/2015 12/26/2015 Malaise and fatigue 03/24/2015 12/26/2015 Gastroesophageal reflux disease without esophagi tis 02/23/2015 12/26/2015 Laryngitis 02/23/2015 12/26/2015 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 10/28/2014 12/26/2015 Papanicolaou smear of cervix with low grade squamous intraepithelial lesion (LGSIL) 10/24/2014 12/25/2019 Pain in joint, ankle and foot 09/27/2014 ASCUS favor dysplasia 09/18/2014 12/26/2015 Visit for gynecologic examination 09/07/2014 12/26/2015 Postmenopausal HRT (hormone replacement therapy) 08/18/2014 12/26/2015 Overview: offered Gait abnormality 07/22/2014 12/26/2015 Weakness of both legs 07/22/2014 12/26/2015 Sprain of ankle, left 06/29/2014 12/26/2015 PCP (pneumocystis jiroveci pneumonia) 06/03/2014 12/26/2015 Acute respiratory failure with hypoxemia 015 12/26/2015 Overview: Increased O2 requirement overnight (2L to 5L) - bronchoscopy with BAL/TBLB tomorrow 8 AM. - NPO from midnight - hold tonight dose of lovenox. Radiation pneumonitis 05/11/2014 12/26/2015 Overview: 40 mg prednisone daily Immunodeficiency with predominant T-cell defect, unspecified 03/11/2014 12/26/2015 Urgency of micturation 03/04/2014 6 Urinary frequency 03/04/2014 12/26/2015 Arm pain, left 07/06/2013 12/26/2015 Back pain without radiation 07/06/201308/2015 Abnormal finding on imaging 07/06/201308/2015 Elevated sed rate 07/06/2013 12/26/2015 Hyperpigmentation of skin 03/31/20132015 Overview: --resolved --bilateral breast tissue and axilla --order mycolog cream --monitor Diarrhea 03/31/2013 12/26/2015 Overview: - c diff pending Mucositis (ulcerative) due to antineoplastic the rapy 03/24/2013 12/26/2015 Overview: --improved --oxy prn --mouth care measures. Reflux 03/23/2013 12/26/2015 Overview: --improved with protonix Elevated LFTs 03/22/2013 12/26/2015 Overview: --increased AST ALT during chemo, resolved. Excess fluid volume 03/21/2013 12/26/2015 Overview: --diuresis as needed --continue to monitor volume status CINV (chemotherapy-induced nausea and vomiting) 03/17/2013 10/13/2015 Overview: --Resolved --Ativan PRN (none used) Peripheral neuropathy 03/16/2013 12/26/2015 Overview: --gabapentin 300mg TID with increased symptoms, bedtime dose of gabapentin increased to 600mg with improvement reported, continue DVT prophylaxis 03/16/2013 12/26/2015 Overview: --platelet count decreasing, d/c heparin SQ --encourage ambulation Insomnia 03/16/2013 12/26/2015 Overview: --ambien PRN at HS, with relief, but with vivid dreams, ambien d/c --restoril at 30mg PRN at HS with relief, continue Chronic chest pain 03/16/2013 12/26/2015 Overview: --now resolved --since Hodgkin lymphoma diagnosis per patient Hospital discharge follow-up 03/16/201308/2015 Overview: --Patient will need to follow up with Dr. Unger after discharge Tachycardia 03/16/2013 12/26/2015 Overview: --patient taking atenolol 100mg BID at home, now BP running lower, decreased atenolol dose to 50mg BID with hypotension. --increase to 75mg BID, d/t tachycardia(HRs >110 while afebrile), HR now controlled, continue --monitor closely Electrolyte and fluid disorders not elsewhere cl assified 02/16/2013 12/26/2015 DISPOSITION AND FOLLOW-UP 10/27/20122015 Overview: 32 yo female from [place], [place]. Family involved with care, at bedside. plan to discharge patient home - will arrange with case management for post op care as needed - follow up in OPD in 7-10 days Post-op pain 10/27/2012 12/26/2015 Overview: currently well controlled with [employer] REPRESENTATIVE. will start PO pain meds today 10/27. tolerating percocet, pain relatively well controlled. Hodgkin's disease with nodular sclerosis 013 12/26/2015 Overview: Oncology history (per Dr. 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 Hodgkin's disease, unspecified 02/05/2012 0 05/11/2014 Vaginal bleeding 12/26/2015 Overview: --likely from thrombocytopenia. No menses in prior 8 months. Scant amount reported on 03/29 and 03/30, now resolved --monitor bleeding by counting pads --should f/u with her [employer] provider after BMT Premature menopause 12/26/2015 Postmenopausal atrophic vaginitis 12/26/2015 Dyspareunia 12/26/2015 documented as of this encounter (statuses as of 05/17/2021) [facility] History of Past illness Narrative* Problem Noted Date Resolved Date Menorrhagia with regular cycle 03/15/2017 1 03/03/2017 Overview: Added automatically from request for surgery [id number] History of pulmonary embolism 04/25/2016 Neoplastic (malignant) related fatigue 7 01/01/2018 Hidradenitis suppurativa 01/17/2016 018 Vitamin D deficiency 06/09/2015 12/26/2015 HyperCKemia 05/06/2015 12/26/2015 Elevated aldolase level 05/06/2015 12/26/19 16 Chronic pain of both knees 05/06/201512/25 Pain in joint, multiple sites 05/06/2015 Myalgia 05/06/2015 12/26/2015 Fatigue 05/06/2015 12/26/2015 Malaise and fatigue 03/24/2015 12/26/2015 Gastroesophageal reflux disease without esophagi tis 02/23/2015 12/26/2015 Laryngitis 02/23/2015 12/26/2015 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 10/28/2014 12/26/2015 Papanicolaou smear of cervix with low grade squamous intraepithelial lesion (LGSIL) 10/24/2014 12/25/2019 Pain in joint, ankle and foot 09/27/2014 ASCUS favor dysplasia 09/18/2014 12/26/2015 Visit for gynecologic examination 09/07/2014 12/26/2015 Postmenopausal HRT (hormone replacement therapy) 08/18/2014 12/26/2015 Overview: offered Gait abnormality 07/22/2014 12/26/2015 Weakness of both legs 07/22/2014 12/26/2015 Sprain of ankle, left 06/29/2014 12/26/2015 PCP (pneumocystis jiroveci pneumonia) 06/03/2014 12/26/2015 Acute respiratory failure with hypoxemia 015 12/26/2015 Overview: Increased O2 requirement overnight (2L to 5L) - bronchoscopy with BAL/TBLB tomorrow 8 AM. - NPO from midnight - hold tonight dose of lovenox. Radiation pneumonitis 05/11/2014 12/26/2015 Overview: 40 mg prednisone daily Immunodeficiency with predominant T-cell defect, unspecified 03/11/2014 12/26/2015 Urgency of micturation 03/04/2014 6 Urinary frequency 03/04/2014 12/26/2015 Arm pain, left 07/06/2013 12/26/2015 Back pain without radiation 07/06/201308/2015 Abnormal finding on imaging 07/06/201308/2015 Elevated sed rate 07/06/2013 12/26/2015 Hyperpigmentation of skin 03/31/20132015 Overview: --resolved --bilateral breast tissue and axilla --order mycolog cream --monitor Diarrhea 03/31/2013 12/26/2015 Overview: - c diff pending Mucositis (ulcerative) due to antineoplastic the rapy 03/24/2013 12/26/2015 Overview: --improved --oxy prn --mouth care measures. Reflux 03/23/2013 12/26/2015 Overview: --improved with protonix Elevated LFTs 03/22/2013 12/26/2015 Overview: --increased AST ALT during chemo, resolved. Excess fluid volume 03/21/2013 12/26/2015 Overview: --diuresis as needed --continue to monitor volume status CINV (chemotherapy-induced nausea and vomiting) 03/17/2013 10/13/2015 Overview: --Resolved --Ativan PRN (none used) Peripheral neuropathy 03/16/2013 12/26/2015 Overview: --gabapentin 300mg TID with increased symptoms, bedtime dose of gabapentin increased to 600mg with improvement reported, continue DVT prophylaxis 03/16/2013 12/26/2015 Overview: --platelet count decreasing, d/c heparin SQ --encourage ambulation Insomnia 03/16/2013 12/26/2015 Overview: --ambien PRN at HS, with relief, but with vivid dreams, ambien d/c --restoril at 30mg PRN at HS with relief, continue Chronic chest pain 03/16/2013 12/26/2015 Overview: --now resolved --since Hodgkin lymphoma diagnosis per patient Hospital discharge follow-up 03/16/201308/2015 Overview: --Patient will need to follow up with Dr. Unger after discharge Tachycardia 03/16/2013 12/26/2015 Overview: --patient taking atenolol 100mg BID at home, now BP running lower, decreased atenolol dose to 50mg BID with hypotension. --increase to 75mg BID, d/t tachycardia(HRs >110 while afebrile), HR now controlled, continue --monitor closely Electrolyte and fluid disorders not elsewhere cl assified 02/16/2013 12/26/2015 DISPOSITION AND FOLLOW-UP 10/27/20122015 Overview: 32 yo female from [place], [place]. Family involved with care, at bedside. plan to discharge patient home - will arrange with case management for post op care as needed - follow up in OPD in 7-10 days Post-op pain 10/27/2012 12/26/2015 Overview: currently well controlled with [employer] REPRESENTATIVE. will start PO pain meds today 10/27. tolerating percocet, pain relatively well controlled. Hodgkin's disease with nodular sclerosis 013 12/26/2015 Overview: Oncology history (per Dr. 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 Hodgkin's disease, unspecified 02/05/2012 0 05/11/2014 Vaginal bleeding 12/26/2015 Overview: --likely from thrombocytopenia. No menses in prior 8 months. Scant amount reported on 03/29 and 03/30, now resolved --monitor bleeding by counting pads --should f/u with her [employer] [employer] provider after BMT Premature menopause 12/26/2015 Postmenopausal atrophic vaginitis 12/26/2015 Dyspareunia 12/26/2015 documented as of this encounter (statuses as of 05/17/2021) [facility] History of Past illness Narrative* Problem Noted Date Resolved Date Menorrhagia with regular cycle 03/15/2017 1 03/03/2017 Overview: Added automatically from request for surgery [id number] History of pulmonary embolism 04/25/2016 Neoplastic (malignant) related fatigue 7 01/01/2018 Hidradenitis suppurativa 01/17/2016 018 Vitamin D deficiency 06/09/2015 12/26/2015 HyperCKemia 05/06/2015 12/26/2015 Elevated aldolase level 05/06/2015 12/26/19 16 Chronic pain of both knees 05/06/201512/25 Pain in joint, multiple sites 05/06/2015 Myalgia 05/06/2015 12/26/2015 Fatigue 05/06/2015 12/26/2015 Malaise and fatigue 03/24/2015 12/26/2015 Gastroesophageal reflux disease without esophagi tis 02/23/2015 12/26/2015 Laryngitis 02/23/2015 12/26/2015 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 10/28/2014 12/26/2015 Papanicolaou smear of cervix with low grade squamous intraepithelial lesion (LGSIL) 10/24/2014 12/25/2019 Pain in joint, ankle and foot 09/27/2014 ASCUS favor dysplasia 09/18/2014 12/26/2015 Visit for gynecologic examination 09/07/2014 12/26/2015 Postmenopausal HRT (hormone replacement therapy) 08/18/2014 12/26/2015 Overview: offered Gait abnormality 07/22/2014 12/26/2015 Weakness of both legs 07/22/2014 12/26/2015 Sprain of ankle, left 06/29/2014 12/26/2015 PCP (pneumocystis jiroveci pneumonia) 06/03/2014 12/26/2015 Acute respiratory failure with hypoxemia 015 12/26/2015 Overview: Increased O2 requirement overnight (2L to 5L) - bronchoscopy with BAL/TBLB tomorrow 8 AM. - NPO from midnight - hold tonight dose of lovenox. Radiation pneumonitis 05/11/2014 12/26/2015 Overview: 40 mg prednisone daily Immunodeficiency with predominant T-cell defect, unspecified 03/11/2014 12/26/2015 Urgency of micturation 03/04/2014 6 Urinary frequency 03/04/2014 12/26/2015 Arm pain, left 07/06/2013 12/26/2015 Back pain without radiation 07/06/201308/2015 Abnormal finding on imaging 07/06/201308/2015 Elevated sed rate 07/06/2013 12/26/2015 Hyperpigmentation of skin 03/31/20132015 Overview: --resolved --bilateral breast tissue and axilla --order mycolog cream --monitor Diarrhea 03/31/2013 12/26/2015 Overview: - c diff pending Mucositis (ulcerative) due to antineoplastic the rapy 03/24/2013 12/26/2015 Overview: --improved --oxy prn --mouth care measures. Reflux 03/23/2013 12/26/2015 Overview: --improved with protonix Elevated LFTs 03/22/2013 12/26/2015 Overview: --increased AST ALT during chemo, resolved. Excess fluid volume 03/21/2013 12/26/2015 Overview: --diuresis as needed --continue to monitor volume status CINV (chemotherapy-induced nausea and vomiting) 03/17/2013 10/13/2015 Overview: --Resolved --Ativan PRN (none used) Peripheral neuropathy 03/16/2013 12/26/2015 Overview: --gabapentin 300mg TID with increased symptoms, bedtime dose of gabapentin increased to 600mg with improvement reported, continue DVT prophylaxis 03/16/2013 12/26/2015 Overview: --platelet count decreasing, d/c heparin SQ --encourage ambulation Insomnia 03/16/2013 12/26/2015 Overview: --ambien PRN at HS, with relief, but with vivid dreams, ambien d/c --restoril at 30mg PRN at HS with relief, continue Chronic chest pain 03/16/2013 12/26/2015 Overview: --now resolved --since Hodgkin lymphoma diagnosis per patient Hospital discharge follow-up 03/16/201308/2015 Overview: --Patient will need to follow up with Dr. Unger after discharge Tachycardia 03/16/2013 12/26/2015 Overview: --patient taking atenolol 100mg BID at home, now BP running lower, decreased atenolol dose to 50mg BID with hypotension. --increase to 75mg BID, d/t tachycardia(HRs >110 while afebrile), HR now controlled, continue --monitor closely Electrolyte and fluid disorders not elsewhere cl assified 02/16/2013 12/26/2015 DISPOSITION AND FOLLOW-UP 10/27/20122015 Overview: 32 yo female from [place], [place]. Family involved with care, at bedside. plan to discharge patient home - will arrange with case management for post op care as needed - follow up in OPD in 7-10 days Post-op pain 10/27/2012 12/26/2015 Overview: currently well controlled with [employer] REPRESENTATIVE. will start PO pain meds today 10/27. tolerating percocet, pain relatively well controlled. Hodgkin's disease with nodular sclerosis 013 12/26/2015 Overview: Oncology history (per Dr. 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 Hodgkin's disease, unspecified 02/05/2012 0 05/11/2014 Vaginal bleeding 12/26/2015 Overview: --likely from thrombocytopenia. No menses in prior 8 months. Scant amount reported on 03/29 and 03/30, now resolved --monitor bleeding by counting pads --should f/u with her [employer] provider after BMT Premature menopause 12/26/2015 Postmenopausal atrophic vaginitis 12/26/2015 Dyspareunia 12/26/2015 documented as of this encounter (statuses as of 05/17/2021) [facility] History of Past illness Narrative* Problem Noted Date Resolved Date Menorrhagia with regular cycle 03/15/2017 1 03/03/2017 Overview: Added automatically from request for surgery [id number] History of pulmonary embolism 04/25/2016 Neoplastic (malignant) related fatigue 7 01/01/2018 Hidradenitis suppurativa 01/17/2016 018 Vitamin D deficiency 06/09/2015 12/26/2015 HyperCKemia 05/06/2015 12/26/2015 Elevated aldolase level 05/06/2015 12/26/19 16 Chronic pain of both knees 05/06/201512/25 Pain in joint, multiple sites 05/06/2015 Myalgia 05/06/2015 12/26/2015 Fatigue 05/06/2015 12/26/2015 Malaise and fatigue 03/24/2015 12/26/2015 Gastroesophageal reflux disease without esophagi tis 02/23/2015 12/26/2015 Laryngitis 02/23/2015 12/26/2015 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 10/28/2014 12/26/2015 Papanicolaou smear of cervix with low grade squamous intraepithelial lesion (LGSIL) 10/24/2014 12/25/2019 Pain in joint, ankle and foot 09/27/2014 ASCUS favor dysplasia 09/18/2014 12/26/2015 Visit for gynecologic examination 09/07/2014 12/26/2015 Postmenopausal HRT (hormone replacement therapy) 08/18/2014 12/26/2015 Overview: offered Gait abnormality 07/22/2014 12/26/2015 Weakness of both legs 07/22/2014 12/26/2015 Sprain of ankle, left 06/29/2014 12/26/2015 PCP (pneumocystis jiroveci pneumonia) 06/03/2014 12/26/2015 Acute respiratory failure with hypoxemia 015 12/26/2015 Overview: Increased O2 requirement overnight (2L to 5L) - bronchoscopy with BAL/TBLB tomorrow 8 AM. - NPO from midnight - hold tonight dose of lovenox. Radiation pneumonitis 05/11/2014 12/26/2015 Overview: 40 mg prednisone daily Immunodeficiency with predominant T-cell defect, unspecified 03/11/2014 12/26/2015 Urgency of micturation 03/04/2014 6 Urinary frequency 03/04/2014 12/26/2015 Arm pain, left 07/06/2013 12/26/2015 Back pain without radiation 07/06/201308/2015 Abnormal finding on imaging 07/06/201308/2015 Elevated sed rate 07/06/2013 12/26/2015 Hyperpigmentation of skin 03/31/20132015 Overview: --resolved --bilateral breast tissue and axilla --order mycolog cream --monitor Diarrhea 03/31/2013 12/26/2015 Overview: - c diff pending Mucositis (ulcerative) due to antineoplastic the rapy 03/24/2013 12/26/2015 Overview: --improved --oxy prn --mouth care measures. Reflux 03/23/2013 12/26/2015 Overview: --improved with protonix Elevated LFTs 03/22/2013 12/26/2015 Overview: --increased AST ALT during chemo, resolved. Excess fluid volume 03/21/2013 12/26/2015 Overview: --diuresis as needed --continue to monitor volume status CINV (chemotherapy-induced nausea and vomiting) 03/17/2013 10/13/2015 Overview: --Resolved --Ativan PRN (none used) Peripheral neuropathy 03/16/2013 12/26/2015 Overview: --gabapentin 300mg TID with increased symptoms, bedtime dose of gabapentin increased to 600mg with improvement reported, continue DVT prophylaxis 03/16/2013 12/26/2015 Overview: --platelet count decreasing, d/c heparin SQ --encourage ambulation Insomnia 03/16/2013 12/26/2015 Overview: --ambien PRN at HS, with relief, but with vivid dreams, ambien d/c --restoril at 30mg PRN at HS with relief, continue Chronic chest pain 03/16/2013 12/26/2015 Overview: --now resolved --since Hodgkin lymphoma diagnosis per patient Hospital discharge follow-up 03/16/201308/2015 Overview: --Patient will need to follow up with Dr. Unger after discharge Tachycardia 03/16/2013 12/26/2015 Overview: --patient taking atenolol 100mg BID at home, now BP running lower, decreased atenolol dose to 50mg BID with hypotension. --increase to 75mg BID, d/t tachycardia(HRs >110 while afebrile), HR now controlled, continue --monitor closely Electrolyte and fluid disorders not elsewhere cl assified 02/16/2013 12/26/2015 DISPOSITION AND FOLLOW-UP 10/27/20122015 Overview: 32 yo female from [place], [place]. Family involved with care, at bedside. plan to discharge patient home - will arrange with case management for post op care as needed - follow up in OPD in 7-10 days Post-op pain 10/27/2012 12/26/2015 Overview: currently well controlled with [employer] REPRESENTATIVE. will start PO pain meds today 10/27. tolerating percocet, pain relatively well controlled. Hodgkin's disease with nodular sclerosis 013 12/26/2015 Overview: Oncology history (per Dr. 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 Hodgkin's disease, unspecified 02/05/2012 0 05/11/2014 Vaginal bleeding 12/26/2015 Overview: --likely from thrombocytopenia. No menses in prior 8 months. Scant amount reported on 03/29 and 03/30, now resolved --monitor bleeding by counting pads --should f/u with her [employer] provider after BMT Premature menopause 12/26/2015 Postmenopausal atrophic vaginitis 12/26/2015 Dyspareunia 12/26/2015 documented as of this encounter (statuses as of 05/17/2021) [facility] History of Past illness Narrative* Problem Noted Date Resolved Date Menorrhagia with regular cycle 03/15/2017 1 03/03/2017 Overview: Added automatically from request for surgery [id number] History of pulmonary embolism 04/25/2016 Neoplastic (malignant) related fatigue 7 01/01/2018 Hidradenitis suppurativa 01/17/2016 018 Vitamin D deficiency 06/09/2015 12/26/2015 HyperCKemia 05/06/2015 12/26/2015 Elevated aldolase level 05/06/2015 12/26/19 16 Chronic pain of both knees 05/06/201512/25 Pain in joint, multiple sites 05/06/2015 Myalgia 05/06/2015 12/26/2015 Fatigue 05/06/2015 12/26/2015 Malaise and fatigue 03/24/2015 12/26/2015 Gastroesophageal reflux disease without esophagi tis 02/23/2015 12/26/2015 Laryngitis 02/23/2015 12/26/2015 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 10/28/2014 12/26/2015 Papanicolaou smear of cervix with low grade squamous intraepithelial lesion (LGSIL) 10/24/2014 12/25/2019 Pain in joint, ankle and foot 09/27/2014 ASCUS favor dysplasia 09/18/2014 12/26/2015 Visit for gynecologic examination 09/07/2014 12/26/2015 Postmenopausal HRT (hormone replacement therapy) 08/18/2014 12/26/2015 Overview: offered Gait abnormality 07/22/2014 12/26/2015 Weakness of both legs 07/22/2014 12/26/2015 Sprain of ankle, left 06/29/2014 12/26/2015 PCP (pneumocystis jiroveci pneumonia) 06/03/2014 12/26/2015 Acute respiratory failure with hypoxemia 015 12/26/2015 Overview: Increased O2 requirement overnight (2L to 5L) - bronchoscopy with BAL/TBLB tomorrow 8 AM. - NPO from midnight - hold tonight dose of lovenox. Radiation pneumonitis 05/11/2014 12/26/2015 Overview: 40 mg prednisone daily Immunodeficiency with predominant T-cell defect, unspecified 03/11/2014 12/26/2015 Urgency of micturation 03/04/2014 6 Urinary frequency 03/04/2014 12/26/2015 Arm pain, left 07/06/2013 12/26/2015 Back pain without radiation 07/06/201308/2015 Abnormal finding on imaging 07/06/201308/2015 Elevated sed rate 07/06/2013 12/26/2015 Hyperpigmentation of skin 03/31/20132015 Overview: --resolved --bilateral breast tissue and axilla --order mycolog cream --monitor Diarrhea 03/31/2013 12/26/2015 Overview: - c diff pending Mucositis (ulcerative) due to antineoplastic the rapy 03/24/2013 12/26/2015 Overview: --improved --oxy prn --mouth care measures. Reflux 03/23/2013 12/26/2015 Overview: --improved with protonix Elevated LFTs 03/22/2013 12/26/2015 Overview: --increased AST ALT during chemo, resolved. Excess fluid volume 03/21/2013 12/26/2015 Overview: --diuresis as needed --continue to monitor volume status CINV (chemotherapy-induced nausea and vomiting) 03/17/2013 10/13/2015 Overview: --Resolved --Ativan PRN (none used) Peripheral neuropathy 03/16/2013 12/26/2015 Overview: --gabapentin 300mg TID with increased symptoms, bedtime dose of gabapentin increased to 600mg with improvement reported, continue DVT prophylaxis 03/16/2013 12/26/2015 Overview: --platelet count decreasing, d/c heparin SQ --encourage ambulation Insomnia 03/16/2013 12/26/2015 Overview: --ambien PRN at HS, with relief, but with vivid dreams, ambien d/c --restoril at 30mg PRN at HS with relief, continue Chronic chest pain 03/16/2013 12/26/2015 Overview: --now resolved --since Hodgkin lymphoma diagnosis per patient Hospital discharge follow-up 03/16/201308/2015 Overview: --Patient will need to follow up with Dr. Unger after discharge Tachycardia 03/16/2013 12/26/2015 Overview: --patient taking atenolol 100mg BID at home, now BP running lower, decreased atenolol dose to 50mg BID with hypotension. --increase to 75mg BID, d/t tachycardia(HRs >110 while afebrile), HR now controlled, continue --monitor closely Electrolyte and fluid disorders not elsewhere cl assified 02/16/2013 12/26/2015 DISPOSITION AND FOLLOW-UP 10/27/20122015 Overview: 32 yo female from [place], [place]. Family involved with care, at bedside. plan to discharge patient home - will arrange with case management for post op care as needed - follow up in OPD in 7-10 days Post-op pain 10/27/2012 12/26/2015 Overview: currently well controlled with [employer] REPRESENTATIVE. will start PO pain meds today 10/27. tolerating percocet, pain relatively well controlled. Hodgkin's disease with nodular sclerosis 013 12/26/2015 Overview: Oncology history (per Dr. 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 Hodgkin's disease, unspecified 02/05/2012 0 05/11/2014 Vaginal bleeding 12/26/2015 Overview: --likely from thrombocytopenia. No menses in prior 8 months. Scant amount reported on 03/29 and 03/30, now resolved --monitor bleeding by counting pads --should f/u with her [employer] provider after BMT Premature menopause 12/26/2015 Postmenopausal atrophic vaginitis 12/26/2015 Dyspareunia 12/26/2015 documented as of this encounter (statuses as of 05/19/2021) [facility] History of Past illness Narrative* Problem Noted Date Resolved Date Menorrhagia with regular cycle 03/15/2017 1 03/03/2017 Overview: Added automatically from request for surgery [id number] History of pulmonary embolism 04/25/2016 Neoplastic (malignant) related fatigue 7 01/01/2018 Hidradenitis suppurativa 01/17/2016 018 Vitamin D deficiency 06/09/2015 12/26/2015 HyperCKemia 05/06/2015 12/26/2015 Elevated aldolase level 05/06/2015 12/26/19 16 Chronic pain of both knees 05/06/201512/25 Pain in joint, multiple sites 05/06/2015 Myalgia 05/06/2015 12/26/2015 Fatigue 05/06/2015 12/26/2015 Malaise and fatigue 03/24/2015 12/26/2015 Gastroesophageal reflux disease without esophagi tis 02/23/2015 12/26/2015 Laryngitis 02/23/2015 12/26/2015 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 10/28/2014 12/26/2015 Papanicolaou smear of cervix with low grade squamous intraepithelial lesion (LGSIL) 10/24/2014 12/25/2019 Pain in joint, ankle and foot 09/27/2014 ASCUS favor dysplasia 09/18/2014 12/26/2015 Visit for gynecologic examination 09/07/2014 12/26/2015 Postmenopausal HRT (hormone replacement therapy) 08/18/2014 12/26/2015 Overview: offered Gait abnormality 07/22/2014 12/26/2015 Weakness of both legs 07/22/2014 12/26/2015 Sprain of ankle, left 06/29/2014 12/26/2015 PCP (pneumocystis jiroveci pneumonia) 06/03/2014 12/26/2015 Acute respiratory failure with hypoxemia 015 12/26/2015 Overview: Increased O2 requirement overnight (2L to 5L) - bronchoscopy with BAL/TBLB tomorrow 8 AM. - NPO from midnight - hold tonight dose of lovenox. Radiation pneumonitis 05/11/2014 12/26/2015 Overview: 40 mg prednisone daily Immunodeficiency with predominant T-cell defect, unspecified 03/11/2014 12/26/2015 Urgency of micturation 03/04/2014 6 Urinary frequency 03/04/2014 12/26/2015 Arm pain, left 07/06/2013 12/26/2015 Back pain without radiation 07/06/201308/2015 Abnormal finding on imaging 07/06/201308/2015 Elevated sed rate 07/06/2013 12/26/2015 Hyperpigmentation of skin 03/31/20132015 Overview: --resolved --bilateral breast tissue and axilla --order mycolog cream --monitor Diarrhea 03/31/2013 12/26/2015 Overview: - c diff pending Mucositis (ulcerative) due to antineoplastic the rapy 03/24/2013 12/26/2015 Overview: --improved --oxy prn --mouth care measures. Reflux 03/23/2013 12/26/2015 Overview: --improved with protonix Elevated LFTs 03/22/2013 12/26/2015 Overview: --increased AST ALT during chemo, resolved. Excess fluid volume 03/21/2013 12/26/2015 Overview: --diuresis as needed --continue to monitor volume status CINV (chemotherapy-induced nausea and vomiting) 03/17/2013 10/13/2015 Overview: --Resolved --Ativan PRN (none used) Peripheral neuropathy 03/16/2013 12/26/2015 Overview: --gabapentin 300mg TID with increased symptoms, bedtime dose of gabapentin increased to 600mg with improvement reported, continue DVT prophylaxis 03/16/2013 12/26/2015 Overview: --platelet count decreasing, d/c heparin SQ --encourage ambulation Insomnia 03/16/2013 12/26/2015 Overview: --ambien PRN at HS, with relief, but with vivid dreams, ambien d/c --restoril at 30mg PRN at HS with relief, continue Chronic chest pain 03/16/2013 12/26/2015 Overview: --now resolved --since Hodgkin lymphoma diagnosis per patient Hospital discharge follow-up 03/16/201308/2015 Overview: --Patient will need to follow up with Dr. Unger after discharge Tachycardia 03/16/2013 12/26/2015 Overview: --patient taking atenolol 100mg BID at home, now BP running lower, decreased atenolol dose to 50mg BID with hypotension. --increase to 75mg BID, d/t tachycardia(HRs >110 while afebrile), HR now controlled, continue --monitor closely Electrolyte and fluid disorders not elsewhere cl assified 02/16/2013 12/26/2015 DISPOSITION AND FOLLOW-UP 10/27/20122015 Overview: 32 yo female from [place], [place]. Family involved with care, at bedside. plan to discharge patient home - will arrange with case management for post op care as needed - follow up in OPD in 7-10 days Post-op pain 10/27/2012 12/26/2015 Overview: currently well controlled with [employer] REPRESENTATIVE. will start PO pain meds today 10/27. tolerating percocet, pain relatively well controlled. Hodgkin's disease with nodular sclerosis 013 12/26/2015 Overview: Oncology history (per Dr. 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 Hodgkin's disease, unspecified 02/05/2012 0 05/11/2014 Vaginal bleeding 12/26/2015 Overview: --likely from thrombocytopenia. No menses in prior 8 months. Scant amount reported on 03/29 and 03/30, now resolved --monitor bleeding by counting pads --should f/u with her [employer] provider after BMT Premature menopause 12/26/2015 Postmenopausal atrophic vaginitis 12/26/2015 Dyspareunia 12/26/2015 documented as of this encounter (statuses as of 06/06/2021) [facility]01-26-2018 History of Past illness Narrative* Problem Noted Date Resolved Date Menorrhagia with regular cycle 03/15/2017 1 03/03/2017 Overview: Added automatically from request for surgery [id number] History of pulmonary embolism 04/25/2016 Neoplastic (malignant) related fatigue 7 01/01/2018 Hidradenitis suppurativa 01/17/2016 018 Vitamin D deficiency 06/09/2015 12/26/2015 HyperCKemia 05/06/2015 12/26/2015 Elevated aldolase level 05/06/2015 12/26/19 16 Chronic pain of both knees 05/06/201512/25 Pain in joint, multiple sites 05/06/2015 Myalgia 05/06/2015 12/26/2015 Fatigue 05/06/2015 12/26/2015 Malaise and fatigue 03/24/2015 12/26/2015 Gastroesophageal reflux disease without esophagi tis 02/23/2015 12/26/2015 Laryngitis 02/23/2015 12/26/2015 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 10/28/2014 12/26/2015 Papanicolaou smear of cervix with low grade squamous intraepithelial lesion (LGSIL) 10/24/2014 12/25/2019 Pain in joint, ankle and foot 09/27/2014 ASCUS favor dysplasia 09/18/2014 12/26/2015 Visit for gynecologic examination 09/07/2014 12/26/2015 Postmenopausal HRT (hormone replacement therapy) 08/18/2014 12/26/2015 Overview: offered Gait abnormality 07/22/2014 12/26/2015 Weakness of both legs 07/22/2014 12/26/2015 Sprain of ankle, left 06/29/2014 12/26/2015 PCP (pneumocystis jiroveci pneumonia) 06/03/2014 12/26/2015 Acute respiratory failure with hypoxemia 015 12/26/2015 Overview: Increased O2 requirement overnight (2L to 5L) - bronchoscopy with BAL/TBLB tomorrow 8 AM. - NPO from midnight - hold tonight dose of lovenox. Radiation pneumonitis 05/11/2014 12/26/2015 Overview: 40 mg prednisone daily Immunodeficiency with predominant T-cell defect, unspecified 03/11/2014 12/26/2015 Urgency of micturation 03/04/2014 6 Urinary frequency 03/04/2014 12/26/2015 Arm pain, left 07/06/2013 12/26/2015 Back pain without radiation 07/06/201308/2015 Abnormal finding on imaging 07/06/201308/2015 Elevated sed rate 07/06/2013 12/26/2015 Hyperpigmentation of skin 03/31/20132015 Overview: --resolved --bilateral breast tissue and axilla --order mycolog cream --monitor Diarrhea 03/31/2013 12/26/2015 Overview: - c diff pending Mucositis (ulcerative) due to antineoplastic the rapy 03/24/2013 12/26/2015 Overview: --improved --oxy prn --mouth care measures. Reflux 03/23/2013 12/26/2015 Overview: --improved with protonix Elevated LFTs 03/22/2013 12/26/2015 Overview: --increased AST ALT during chemo, resolved. Excess fluid volume 03/21/2013 12/26/2015 Overview: --diuresis as needed --continue to monitor volume status CINV (chemotherapy-induced nausea and vomiting) 03/17/2013 10/13/2015 Overview: --Resolved --Ativan PRN (none used) Peripheral neuropathy 03/16/2013 12/26/2015 Overview: --gabapentin 300mg TID with increased symptoms, bedtime dose of gabapentin increased to 600mg with improvement reported, continue DVT prophylaxis 03/16/2013 12/26/2015 Overview: --platelet count decreasing, d/c heparin SQ --encourage ambulation Insomnia 03/16/2013 12/26/2015 Overview: --ambien PRN at HS, with relief, but with vivid dreams, ambien d/c --restoril at 30mg PRN at HS with relief, continue Chronic chest pain 03/16/2013 12/26/2015 Overview: --now resolved --since Hodgkin lymphoma diagnosis per patient Hospital discharge follow-up 03/16/201308/2015 Overview: --Patient will need to follow up with Dr. Unger after discharge Tachycardia 03/16/2013 12/26/2015 Overview: --patient taking atenolol 100mg BID at home, now BP running lower, decreased atenolol dose to 50mg BID with hypotension. --increase to 75mg BID, d/t tachycardia(HRs >110 while afebrile), HR now controlled, continue --monitor closely Electrolyte and fluid disorders not elsewhere cl assified 02/16/2013 12/26/2015 DISPOSITION AND FOLLOW-UP 10/27/20122015 Overview: 32 yo female from [place], [place]. Family involved with care, at bedside. plan to discharge patient home - will arrange with case management for post op care as needed - follow up in OPD in 7-10 days Post-op pain 10/27/2012 12/26/2015 Overview: currently well controlled with [employer] REPRESENT[employer]IVE. will start PO pain meds today 10/27. tolerating percocet, pain relatively well controlled. Hodgkin's disease with nodular sclerosis 013 12/26/2015 Overview: Oncology history (per Dr. 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 Hodgkin's disease, unspecified 02/05/2012 0 05/11/2014 Vaginal bleeding 12/26/2015 Overview: --likely from thrombocytopenia. No menses in prior 8 months. Scant amount reported on 03/29 and 03/30, now resolved --monitor bleeding by counting pads --should f/u with her [employer] provider after BMT Premature menopause 12/26/2015 Postmenopausal atrophic vaginitis 12/26/2015 Dyspareunia 12/26/2015 documented as of this encounter (statuses as of 06/07/2021) [facility] History of Past illness Narrative* Problem Noted Date Resolved Date Menorrhagia with regular cycle 03/15/2017 1 03/03/2017 Overview: Added automatically from request for surgery [id number] History of pulmonary embolism 04/25/2016 Neoplastic (malignant) related fatigue 7 01/01/2018 Hidradenitis suppurativa 01/17/2016 018 Vitamin D deficiency 06/09/2015 12/26/2015 HyperCKemia 05/06/2015 12/26/2015 Elevated aldolase level 05/06/2015 12/26/19 16 Chronic pain of both knees 05/06/201512/25 Pain in joint, multiple sites 05/06/2015 Myalgia 05/06/2015 12/26/2015 Fatigue 05/06/2015 12/26/2015 Malaise and fatigue 03/24/2015 12/26/2015 Gastroesophageal reflux disease without esophagi tis 02/23/2015 12/26/2015 Laryngitis 02/23/2015 12/26/2015 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 10/28/2014 12/26/2015 Papanicolaou smear of cervix with low grade squamous intraepithelial lesion (LGSIL) 10/24/2014 12/25/2019 Pain in joint, ankle and foot 09/27/2014 ASCUS favor dysplasia 09/18/2014 12/26/2015 Visit for gynecologic examination 09/07/2014 12/26/2015 Postmenopausal HRT (hormone replacement therapy) 08/18/2014 12/26/2015 Overview: offered Gait abnormality 07/22/2014 12/26/2015 Weakness of both legs 07/22/2014 12/26/2015 Sprain of ankle, left 06/29/2014 12/26/2015 PCP (pneumocystis jiroveci pneumonia) 06/03/2014 12/26/2015 Acute respiratory failure with hypoxemia 015 12/26/2015 Overview: Increased O2 requirement overnight (2L to 5L) - bronchoscopy with BAL/TBLB tomorrow 8 AM. - NPO from midnight - hold tonight dose of lovenox. Radiation pneumonitis 05/11/2014 12/26/2015 Overview: 40 mg prednisone daily Immunodeficiency with predominant T-cell defect, unspecified 03/11/2014 12/26/2015 Urgency of micturation 03/04/2014 6 Urinary frequency 03/04/2014 12/26/2015 Arm pain, left 07/06/2013 12/26/2015 Back pain without radiation 07/06/201308/2015 Abnormal finding on imaging 07/06/201308/2015 Elevated sed rate 07/06/2013 12/26/2015 Hyperpigmentation of skin 03/31/20132015 Overview: --resolved --bilateral breast tissue and axilla --order mycolog cream --monitor Diarrhea 03/31/2013 12/26/2015 Overview: - c diff pending Mucositis (ulcerative) due to antineoplastic the rapy 03/24/2013 12/26/2015 Overview: --improved --oxy prn --mouth care measures. Reflux 03/23/2013 12/26/2015 Overview: --improved with protonix Elevated LFTs 03/22/2013 12/26/2015 Overview: --increased AST ALT during chemo, resolved. Excess fluid volume 03/21/2013 12/26/2015 Overview: --diuresis as needed --continue to monitor volume status CINV (chemotherapy-induced nausea and vomiting) 03/17/2013 10/13/2015 Overview: --Resolved --Ativan PRN (none used) Peripheral neuropathy 03/16/2013 12/26/2015 Overview: --gabapentin 300mg TID with increased symptoms, bedtime dose of gabapentin increased to 600mg with improvement reported, continue DVT prophylaxis 03/16/2013 12/26/2015 Overview: --platelet count decreasing, d/c heparin SQ --encourage ambulation Insomnia 03/16/2013 12/26/2015 Overview: --ambien PRN at HS, with relief, but with vivid dreams, ambien d/c --restoril at 30mg PRN at HS with relief, continue Chronic chest pain 03/16/2013 12/26/2015 Overview: --now resolved --since Hodgkin lymphoma diagnosis per patient Hospital discharge follow-up 03/16/201308/2015 Overview: --Patient will need to follow up with Dr. Unger after discharge Tachycardia 03/16/2013 12/26/2015 Overview: --patient taking atenolol 100mg BID at home, now BP running lower, decreased atenolol dose to 50mg BID with hypotension. --increase to 75mg BID, d/t tachycardia(HRs >110 while afebrile), HR now controlled, continue --monitor closely Electrolyte and fluid disorders not elsewhere cl assified 02/16/2013 12/26/2015 DISPOSITION AND FOLLOW-UP 10/27/20122015 Overview: 32 yo female from [place], [place]. Family involved with care, at bedside. plan to discharge patient home - will arrange with case management for post op care as needed - follow up in OPD in 7-10 days Post-op pain 10/27/2012 12/26/2015 Overview: currently well controlled with [employer] REPRESENT[employer]IVE. will start PO pain meds today 10/27. tolerating percocet, pain relatively well controlled. Hodgkin's disease with nodular sclerosis 013 12/26/2015 Overview: Oncology history (per Dr. 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 Hodgkin's disease, unspecified 02/05/2012 0 05/11/2014 Vaginal bleeding 12/26/2015 Overview: --likely from thrombocytopenia. No menses in prior 8 months. Scant amount reported on 03/29 and 03/30, now resolved --monitor bleeding by counting pads --should f/u with her [employer] provider after BMT Premature menopause 12/26/2015 Postmenopausal atrophic vaginitis 12/26/2015 Dyspareunia 12/26/2015 documented as of this encounter (statuses as of 06/14/2021) [facility]01[facility] History of Past illness Narrative* Problem Noted Date Resolved Date Menorrhagia with regular cycle 03/15/2017 1 03/03/2017 Overview: Added automatically from request for surgery [id number] History of pulmonary embolism 04/25/2016 Neoplastic (malignant) related fatigue 7 01/01/2018 Hidradenitis suppurativa 01/17/2016 018 Vitamin D deficiency 06/09/2015 12/26/2015 HyperCKemia 05/06/2015 12/26/2015 Elevated aldolase level 05/06/2015 12/26/19 16 Chronic pain of both knees 05/06/201512/25 Pain in joint, multiple sites 05/06/2015 Myalgia 05/06/2015 12/26/2015 Fatigue 05/06/2015 12/26/2015 Malaise and fatigue 03/24/2015 12/26/2015 Gastroesophageal reflux disease without esophagi tis 02/23/2015 12/26/2015 Laryngitis 02/23/2015 12/26/2015 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 10/28/2014 12/26/2015 Papanicolaou smear of cervix with low grade squamous intraepithelial lesion (LGSIL) 10/24/2014 12/25/2019 Pain in joint, ankle and foot 09/27/2014 ASCUS favor dysplasia 09/18/2014 12/26/2015 Visit for gynecologic examination 09/07/2014 12/26/2015 Postmenopausal HRT (hormone replacement therapy) 08/18/2014 12/26/2015 Overview: offered Gait abnormality 07/22/2014 12/26/2015 Weakness of both legs 07/22/2014 12/26/2015 Sprain of ankle, left 06/29/2014 12/26/2015 PCP (pneumocystis jiroveci pneumonia) 06/03/2014 12/26/2015 Acute respiratory failure with hypoxemia 015 12/26/2015 Overview: Increased O2 requirement overnight (2L to 5L) - bronchoscopy with BAL/TBLB tomorrow 8 AM. - NPO from midnight - hold tonight dose of lovenox. Radiation pneumonitis 05/11/2014 12/26/2015 Overview: 40 mg prednisone daily Immunodeficiency with predominant T-cell defect, unspecified 03/11/2014 12/26/2015 Urgency of micturation 03/04/2014 6 Urinary frequency 03/04/2014 12/26/2015 Arm pain, left 07/06/2013 12/26/2015 Back pain without radiation 07/06/201308/2015 Abnormal finding on imaging 07/06/201308/2015 Elevated sed rate 07/06/2013 12/26/2015 Hyperpigmentation of skin 03/31/20132015 Overview: --resolved --bilateral breast tissue and axilla --order mycolog cream --monitor Diarrhea 03/31/2013 12/26/2015 Overview: - c diff pending Mucositis (ulcerative) due to antineoplastic the rapy 03/24/2013 12/26/2015 Overview: --improved --oxy prn --mouth care measures. Reflux 03/23/2013 12/26/2015 Overview: --improved with protonix Elevated LFTs 03/22/2013 12/26/2015 Overview: --increased AST ALT during chemo, resolved. Excess fluid volume 03/21/2013 12/26/2015 Overview: --diuresis as needed --continue to monitor volume status CINV (chemotherapy-induced nausea and vomiting) 03/17/2013 10/13/2015 Overview: --Resolved --Ativan PRN (none used) Peripheral neuropathy 03/16/2013 12/26/2015 Overview: --gabapentin 300mg TID with increased symptoms, bedtime dose of gabapentin increased to 600mg with improvement reported, continue DVT prophylaxis 03/16/2013 12/26/2015 Overview: --platelet count decreasing, d/c heparin SQ --encourage ambulation Insomnia 03/16/2013 12/26/2015 Overview: --ambien PRN at HS, with relief, but with vivid dreams, ambien d/c --restoril at 30mg PRN at HS with relief, continue Chronic chest pain 03/16/2013 12/26/2015 Overview: --now resolved --since Hodgkin lymphoma diagnosis per patient Hospital discharge follow-up 03/16/201308/2015 Overview: --Patient will need to follow up with Dr. Unger after discharge Tachycardia 03/16/2013 12/26/2015 Overview: --patient taking atenolol 100mg BID at home, now BP running lower, decreased atenolol dose to 50mg BID with hypotension. --increase to 75mg BID, d/t tachycardia(HRs >110 while afebrile), HR now controlled, continue --monitor closely Electrolyte and fluid disorders not elsewhere cl assified 02/16/2013 12/26/2015 DISPOSITION AND FOLLOW-UP 10/27/20122015 Overview: 32 yo female from [place], [place]. Family involved with care, at bedside. plan to discharge patient home - will arrange with case management for post op care as needed - follow up in OPD in 7-10 days Post-op pain 10/27/2012 12/26/2015 Overview: currently well controlled with [employer] REPRESENT[employer]IVE. will start PO pain meds today 10/27. tolerating percocet, pain relatively well controlled. Hodgkin's disease with nodular sclerosis 013 12/26/2015 Overview: Oncology history (per Dr. 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 Hodgkin's disease, unspecified 02/05/2012 0 05/11/2014 Vaginal bleeding 12/26/2015 Overview: --likely from thrombocytopenia. No menses in prior 8 months. Scant amount reported on 03/29 and 03/30, now resolved --monitor bleeding by counting pads --should f/u with her [employer] provider after BMT Premature menopause 12/26/2015 Postmenopausal atrophic vaginitis 12/26/2015 Dyspareunia 12/26/2015 documented as of this encounter (statuses as of 06/14/2021) [facility]01[facility] History of Past illness Narrative* Problem Noted Date Resolved Date Menorrhagia with regular cycle 03/15/2017 1 03/03/2017 Overview: Added automatically from request for surgery [id number] History of pulmonary embolism 04/25/2016 Neoplastic (malignant) related fatigue 7 01/01/2018 Hidradenitis suppurativa 01/17/2016 018 Vitamin D deficiency 06/09/2015 12/26/2015 HyperCKemia 05/06/2015 12/26/2015 Elevated aldolase level 05/06/2015 12/26/19 16 Chronic pain of both knees 05/06/201512/25 Pain in joint, multiple sites 05/06/2015 Myalgia 05/06/2015 12/26/2015 Fatigue 05/06/2015 12/26/2015 Malaise and fatigue 03/24/2015 12/26/2015 Gastroesophageal reflux disease without esophagi tis 02/23/2015 12/26/2015 Laryngitis 02/23/2015 12/26/2015 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 10/28/2014 12/26/2015 Papanicolaou smear of cervix with low grade squamous intraepithelial lesion (LGSIL) 10/24/2014 12/25/2019 Pain in joint, ankle and foot 09/27/2014 ASCUS favor dysplasia 09/18/2014 12/26/2015 Visit for gynecologic examination 09/07/2014 12/26/2015 Postmenopausal HRT (hormone replacement therapy) 08/18/2014 12/26/2015 Overview: offered Gait abnormality 07/22/2014 12/26/2015 Weakness of both legs 07/22/2014 12/26/2015 Sprain of ankle, left 06/29/2014 12/26/2015 PCP (pneumocystis jiroveci pneumonia) 06/03/2014 12/26/2015 Acute respiratory failure with hypoxemia 015 12/26/2015 Overview: Increased O2 requirement overnight (2L to 5L) - bronchoscopy with BAL/TBLB tomorrow 8 AM. - NPO from midnight - hold tonight dose of lovenox. Radiation pneumonitis 05/11/2014 12/26/2015 Overview: 40 mg prednisone daily Immunodeficiency with predominant T-cell defect, unspecified 03/11/2014 12/26/2015 Urgency of micturation 03/04/2014 6 Urinary frequency 03/04/2014 12/26/2015 Arm pain, left 07/06/2013 12/26/2015 Back pain without radiation 07/06/201308/2015 Abnormal finding on imaging 07/06/201308/2015 Elevated sed rate 07/06/2013 12/26/2015 Hyperpigmentation of skin 03/31/20132015 Overview: --resolved --bilateral breast tissue and axilla --order mycolog cream --monitor Diarrhea 03/31/2013 12/26/2015 Overview: - c diff pending Mucositis (ulcerative) due to antineoplastic the rapy 03/24/2013 12/26/2015 Overview: --improved --oxy prn --mouth care measures. Reflux 03/23/2013 12/26/2015 Overview: --improved with protonix Elevated LFTs 03/22/2013 12/26/2015 Overview: --increased AST ALT during chemo, resolved. Excess fluid volume 03/21/2013 12/26/2015 Overview: --diuresis as needed --continue to monitor volume status CINV (chemotherapy-induced nausea and vomiting) 03/17/2013 10/13/2015 Overview: --Resolved --Ativan PRN (none used) Peripheral neuropathy 03/16/2013 12/26/2015 Overview: --gabapentin 300mg TID with increased symptoms, bedtime dose of gabapentin increased to 600mg with improvement reported, continue DVT prophylaxis 03/16/2013 12/26/2015 Overview: --platelet count decreasing, d/c heparin SQ --encourage ambulation Insomnia 03/16/2013 12/26/2015 Overview: --ambien PRN at HS, with relief, but with vivid dreams, ambien d/c --restoril at 30mg PRN at HS with relief, continue Chronic chest pain 03/16/2013 12/26/2015 Overview: --now resolved --since Hodgkin lymphoma diagnosis per patient Hospital discharge follow-up 03/16/201308/2015 Overview: --Patient will need to follow up with Dr. Unger after discharge Tachycardia 03/16/2013 12/26/2015 Overview: --patient taking atenolol 100mg BID at home, now BP running lower, decreased atenolol dose to 50mg BID with hypotension. --increase to 75mg BID, d/t tachycardia(HRs >110 while afebrile), HR now controlled, continue --monitor closely Electrolyte and fluid disorders not elsewhere cl assified 02/16/2013 12/26/2015 DISPOSITION AND FOLLOW-UP 10/27/20122015 Overview: 32 yo female from [place], [place]. Family involved with care, at bedside. plan to discharge patient home - will arrange with case management for post op care as needed - follow up in OPD in 7-10 days Post-op pain 10/27/2012 12/26/2015 Overview: currently well controlled with [employer] REPRESENTATIVE. will start PO pain meds today 10/27. tolerating percocet, pain relatively well controlled. Hodgkin's disease with nodular sclerosis 013 12/26/2015 Overview: Oncology history (per Dr. 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 Hodgkin's disease, unspecified 02/05/2012 0 05/11/2014 Vaginal bleeding 12/26/2015 Overview: --likely from thrombocytopenia. No menses in prior 8 months. Scant amount reported on 03/29 and 03/30, now resolved --monitor bleeding by counting pads --should f/u with her [employer] provider after BMT Premature menopause 12/26/2015 Postmenopausal atrophic vaginitis 12/26/2015 Dyspareunia 12/26/2015 documented as of this encounter (statuses as of 06/15/2021) [facility] History of Past illness Narrative* Problem Noted Date Resolved Date Menorrhagia with regular cycle 03/15/2017 1 03/03/2017 Overview: Added automatically from request for surgery [id number] History of pulmonary embolism 04/25/2016 Neoplastic (malignant) related fatigue 7 01/01/2018 Hidradenitis suppurativa 01/17/2016 018 Vitamin D deficiency 06/09/2015 12/26/2015 HyperCKemia 05/06/2015 12/26/2015 Elevated aldolase level 05/06/2015 12/26/19 16 Chronic pain of both knees 05/06/201512/25 Pain in joint, multiple sites 05/06/2015 Myalgia 05/06/2015 12/26/2015 Fatigue 05/06/2015 12/26/2015 Malaise and fatigue 03/24/2015 12/26/2015 Gastroesophageal reflux disease without esophagi tis 02/23/2015 12/26/2015 Laryngitis 02/23/2015 12/26/2015 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 10/28/2014 12/26/2015 Papanicolaou smear of cervix with low grade squamous intraepithelial lesion (LGSIL) 10/24/2014 12/25/2019 Pain in joint, ankle and foot 09/27/2014 ASCUS favor dysplasia 09/18/2014 12/26/2015 Visit for gynecologic examination 09/07/2014 12/26/2015 Postmenopausal HRT (hormone replacement therapy) 08/18/2014 12/26/2015 Overview: offered Gait abnormality 07/22/2014 12/26/2015 Weakness of both legs 07/22/2014 12/26/2015 Sprain of ankle, left 06/29/2014 12/26/2015 PCP (pneumocystis jiroveci pneumonia) 06/03/2014 12/26/2015 Acute respiratory failure with hypoxemia 015 12/26/2015 Overview: Increased O2 requirement overnight (2L to 5L) - bronchoscopy with BAL/TBLB tomorrow 8 AM. - NPO from midnight - hold tonight dose of lovenox. Radiation pneumonitis 05/11/2014 12/26/2015 Overview: 40 mg prednisone daily Immunodeficiency with predominant T-cell defect, unspecified 03/11/2014 12/26/2015 Urgency of micturation 03/04/2014 6 Urinary frequency 03/04/2014 12/26/2015 Arm pain, left 07/06/2013 12/26/2015 Back pain without radiation 07/06/201308/2015 Abnormal finding on imaging 07/06/201308/2015 Elevated sed rate 07/06/2013 12/26/2015 Hyperpigmentation of skin 03/31/20132015 Overview: --resolved --bilateral breast tissue and axilla --order mycolog cream --monitor Diarrhea 03/31/2013 12/26/2015 Overview: - c diff pending Mucositis (ulcerative) due to antineoplastic the rapy 03/24/2013 12/26/2015 Overview: --improved --oxy prn --mouth care measures. Reflux 03/23/2013 12/26/2015 Overview: --improved with protonix Elevated LFTs 03/22/2013 12/26/2015 Overview: --increased AST ALT during chemo, resolved. Excess fluid volume 03/21/2013 12/26/2015 Overview: --diuresis as needed --continue to monitor volume status CINV (chemotherapy-induced nausea and vomiting) 03/17/2013 10/13/2015 Overview: --Resolved --Ativan PRN (none used) Peripheral neuropathy 03/16/2013 12/26/2015 Overview: --gabapentin 300mg TID with increased symptoms, bedtime dose of gabapentin increased to 600mg with improvement reported, continue DVT prophylaxis 03/16/2013 12/26/2015 Overview: --platelet count decreasing, d/c heparin SQ --encourage ambulation Insomnia 03/16/2013 12/26/2015 Overview: --ambien PRN at HS, with relief, but with vivid dreams, ambien d/c --restoril at 30mg PRN at HS with relief, continue Chronic chest pain 03/16/2013 12/26/2015 Overview: --now resolved --since Hodgkin lymphoma diagnosis per patient Hospital discharge follow-up 03/16/201308/2015 Overview: --Patient will need to follow up with Dr. Unger after discharge Tachycardia 03/16/2013 12/26/2015 Overview: --patient taking atenolol 100mg BID at home, now BP running lower, decreased atenolol dose to 50mg BID with hypotension. --increase to 75mg BID, d/t tachycardia(HRs >110 while afebrile), HR now controlled, continue --monitor closely Electrolyte and fluid disorders not elsewhere cl assified 02/16/2013 12/26/2015 DISPOSITION AND FOLLOW-UP 10/27/20122015 Overview: 32 yo female from [place], [place]. Family involved with care, at bedside. plan to discharge patient home - will arrange with case management for post op care as needed - follow up in OPD in 7-10 days Post-op pain 10/27/2012 12/26/2015 Overview: currently well controlled with [employer] SAL[employer] REPRESENTATIVE. will start PO pain meds today 10/27. tolerating percocet, pain relatively well controlled. Hodgkin's disease with nodular sclerosis 013 12/26/2015 Overview: Oncology history (per Dr. 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 Hodgkin's disease, unspecified 02/05/2012 0 05/11/2014 Vaginal bleeding 12/26/2015 Overview: --likely from thrombocytopenia. No menses in prior 8 months. Scant amount reported on 03/29 and 03/30, now resolved --monitor bleeding by counting pads --should f/u with her [employer] [employer] provider after BMT Premature menopause 12/26/2015 Postmenopausal atrophic vaginitis 12/26/2015 Dyspareunia 12/26/2015 documented as of this encounter (statuses as of 06/30/2021) [facility] History of Past illness Narrative* Problem Noted Date Resolved Date Menorrhagia with regular cycle 03/15/2017 1 03/03/2017 Overview: Added automatically from request for surgery [id number] History of pulmonary embolism 04/25/2016 Neoplastic (malignant) related fatigue 7 01/01/2018 Hidradenitis suppurativa 01/17/2016 018 Vitamin D deficiency 06/09/2015 12/26/2015 HyperCKemia 05/06/2015 12/26/2015 Elevated aldolase level 05/06/2015 12/26/19 16 Chronic pain of both knees 05/06/201512/25 Pain in joint, multiple sites 05/06/2015 Myalgia 05/06/2015 12/26/2015 Fatigue 05/06/2015 12/26/2015 Malaise and fatigue 03/24/2015 12/26/2015 Gastroesophageal reflux disease without esophagi tis 02/23/2015 12/26/2015 Laryngitis 02/23/2015 12/26/2015 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 10/28/2014 12/26/2015 Papanicolaou smear of cervix with low grade squamous intraepithelial lesion (LGSIL) 10/24/2014 12/25/2019 Pain in joint, ankle and foot 09/27/2014 ASCUS favor dysplasia 09/18/2014 12/26/2015 Visit for gynecologic examination 09/07/2014 12/26/2015 Postmenopausal HRT (hormone replacement therapy) 08/18/2014 12/26/2015 Overview: offered Gait abnormality 07/22/2014 12/26/2015 Weakness of both legs 07/22/2014 12/26/2015 Sprain of ankle, left 06/29/2014 12/26/2015 PCP (pneumocystis jiroveci pneumonia) 06/03/2014 12/26/2015 Acute respiratory failure with hypoxemia 015 12/26/2015 Overview: Increased O2 requirement overnight (2L to 5L) - bronchoscopy with BAL/TBLB tomorrow 8 AM. - NPO from midnight - hold tonight dose of lovenox. Radiation pneumonitis 05/11/2014 12/26/2015 Overview: 40 mg prednisone daily Immunodeficiency with predominant T-cell defect, unspecified 03/11/2014 12/26/2015 Urgency of micturation 03/04/2014 6 Urinary frequency 03/04/2014 12/26/2015 Arm pain, left 07/06/2013 12/26/2015 Back pain without radiation 07/06/201308/2015 Abnormal finding on imaging 07/06/201308/2015 Elevated sed rate 07/06/2013 12/26/2015 Hyperpigmentation of skin 03/31/20132015 Overview: --resolved --bilateral breast tissue and axilla --order mycolog cream --monitor Diarrhea 03/31/2013 12/26/2015 Overview: - c diff pending Mucositis (ulcerative) due to antineoplastic the rapy 03/24/2013 12/26/2015 Overview: --improved --oxy prn --mouth care measures. Reflux 03/23/2013 12/26/2015 Overview: --improved with protonix Elevated LFTs 03/22/2013 12/26/2015 Overview: --increased AST ALT during chemo, resolved. Excess fluid volume 03/21/2013 12/26/2015 Overview: --diuresis as needed --continue to monitor volume status CINV (chemotherapy-induced nausea and vomiting) 03/17/2013 10/13/2015 Overview: --Resolved --Ativan PRN (none used) Peripheral neuropathy 03/16/2013 12/26/2015 Overview: --gabapentin 300mg TID with increased symptoms, bedtime dose of gabapentin increased to 600mg with improvement reported, continue DVT prophylaxis 03/16/2013 12/26/2015 Overview: --platelet count decreasing, d/c heparin SQ --encourage ambulation Insomnia 03/16/2013 12/26/2015 Overview: --ambien PRN at HS, with relief, but with vivid dreams, ambien d/c --restoril at 30mg PRN at HS with relief, continue Chronic chest pain 03/16/2013 12/26/2015 Overview: --now resolved --since Hodgkin lymphoma diagnosis per patient Hospital discharge follow-up 03/16/201308/2015 Overview: --Patient will need to follow up with Dr. Unger after discharge Tachycardia 03/16/2013 12/26/2015 Overview: --patient taking atenolol 100mg BID at home, now BP running lower, decreased atenolol dose to 50mg BID with hypotension. --increase to 75mg BID, d/t tachycardia(HRs >110 while afebrile), HR now controlled, continue --monitor closely Electrolyte and fluid disorders not elsewhere cl assified 02/16/2013 12/26/2015 DISPOSITION AND FOLLOW-UP 10/27/20122015 Overview: 32 yo female from [place], [place]. Family involved with care, at bedside. plan to discharge patient home - will arrange with case management for post op care as needed - follow up in OPD in 7-10 days Post-op pain 10/27/2012 12/26/2015 Overview: currently well controlled with [employer] REPRESENTATIVE. will start PO pain meds today 10/27. tolerating percocet, pain relatively well controlled. Hodgkin's disease with nodular sclerosis 013 12/26/2015 Overview: Oncology history (per Dr. 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 Hodgkin's disease, unspecified 02/05/2012 0 05/11/2014 Vaginal bleeding 12/26/2015 Overview: --likely from thrombocytopenia. No menses in prior 8 months. Scant amount reported on 03/29 and 03/30, now resolved --monitor bleeding by counting pads --should f/u with her [employer] provider after BMT Premature menopause 12/26/2015 Postmenopausal atrophic vaginitis 12/26/2015 Dyspareunia 12/26/2015 documented as of this encounter (statuses as of 07/05/2021) [facility] History of Past illness Narrative* Problem Noted Date Resolved Date Menorrhagia with regular cycle 03/15/2017 1 03/03/2017 Overview: Added automatically from request for surgery [id number] History of pulmonary embolism 04/25/2016 Neoplastic (malignant) related fatigue 7 01/01/2018 Hidradenitis suppurativa 01/17/2016 018 Vitamin D deficiency 06/09/2015 12/26/2015 HyperCKemia 05/06/2015 12/26/2015 Elevated aldolase level 05/06/2015 12/26/19 16 Chronic pain of both knees 05/06/201512/25 Pain in joint, multiple sites 05/06/2015 Myalgia 05/06/2015 12/26/2015 Fatigue 05/06/2015 12/26/2015 Malaise and fatigue 03/24/2015 12/26/2015 Gastroesophageal reflux disease without esophagi tis 02/23/2015 12/26/2015 Laryngitis 02/23/2015 12/26/2015 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 10/28/2014 12/26/2015 Papanicolaou smear of cervix with low grade squamous intraepithelial lesion (LGSIL) 10/24/2014 12/25/2019 Pain in joint, ankle and foot 09/27/2014 ASCUS favor dysplasia 09/18/2014 12/26/2015 Visit for gynecologic examination 09/07/2014 12/26/2015 Postmenopausal HRT (hormone replacement therapy) 08/18/2014 12/26/2015 Overview: offered Gait abnormality 07/22/2014 12/26/2015 Weakness of both legs 07/22/2014 12/26/2015 Sprain of ankle, left 06/29/2014 12/26/2015 PCP (pneumocystis jiroveci pneumonia) 06/03/2014 12/26/2015 Acute respiratory failure with hypoxemia 015 12/26/2015 Overview: Increased O2 requirement overnight (2L to 5L) - bronchoscopy with BAL/TBLB tomorrow 8 AM. - NPO from midnight - hold tonight dose of lovenox. Radiation pneumonitis 05/11/2014 12/26/2015 Overview: 40 mg prednisone daily Immunodeficiency with predominant T-cell defect, unspecified 03/11/2014 12/26/2015 Urgency of micturation 03/04/2014 6 Urinary frequency 03/04/2014 12/26/2015 Arm pain, left 07/06/2013 12/26/2015 Back pain without radiation 07/06/201308/2015 Abnormal finding on imaging 07/06/201308/2015 Elevated sed rate 07/06/2013 12/26/2015 Hyperpigmentation of skin 03/31/20132015 Overview: --resolved --bilateral breast tissue and axilla --order mycolog cream --monitor Diarrhea 03/31/2013 12/26/2015 Overview: - c diff pending Mucositis (ulcerative) due to antineoplastic the rapy 03/24/2013 12/26/2015 Overview: --improved --oxy prn --mouth care measures. Reflux 03/23/2013 12/26/2015 Overview: --improved with protonix Elevated LFTs 03/22/2013 12/26/2015 Overview: --increased AST ALT during chemo, resolved. Excess fluid volume 03/21/2013 12/26/2015 Overview: --diuresis as needed --continue to monitor volume status CINV (chemotherapy-induced nausea and vomiting) 03/17/2013 10/13/2015 Overview: --Resolved --Ativan PRN (none used) Peripheral neuropathy 03/16/2013 12/26/2015 Overview: --gabapentin 300mg TID with increased symptoms, bedtime dose of gabapentin increased to 600mg with improvement reported, continue DVT prophylaxis 03/16/2013 12/26/2015 Overview: --platelet count decreasing, d/c heparin SQ --encourage ambulation Insomnia 03/16/2013 12/26/2015 Overview: --ambien PRN at HS, with relief, but with vivid dreams, ambien d/c --restoril at 30mg PRN at HS with relief, continue Chronic chest pain 03/16/2013 12/26/2015 Overview: --now resolved --since Hodgkin lymphoma diagnosis per patient Hospital discharge follow-up 03/16/201308/2015 Overview: --Patient will need to follow up with Dr. Unger after discharge Tachycardia 03/16/2013 12/26/2015 Overview: --patient taking atenolol 100mg BID at home, now BP running lower, decreased atenolol dose to 50mg BID with hypotension. --increase to 75mg BID, d/t tachycardia(HRs >110 while afebrile), HR now controlled, continue --monitor closely Electrolyte and fluid disorders not elsewhere cl assified 02/16/2013 12/26/2015 DISPOSITION AND FOLLOW-UP 10/27/20122015 Overview: 32 yo female from [place], [place]. Family involved with care, at bedside. plan to discharge patient home - will arrange with case management for post op care as needed - follow up in OPD in 7-10 days Post-op pain 10/27/2012 12/26/2015 Overview: currently well controlled with [employer] REPRESENTATIVE. will start PO pain meds today 10/27. tolerating percocet, pain relatively well controlled. Hodgkin's disease with nodular sclerosis 013 12/26/2015 Overview: Oncology history (per Dr. 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 Hodgkin's disease, unspecified 02/05/2012 0 05/11/2014 Vaginal bleeding 12/26/2015 Overview: --likely from thrombocytopenia. No menses in prior 8 months. Scant amount reported on 03/29 and 03/30, now resolved --monitor bleeding by counting pads --should f/u with her [employer] provider after BMT Premature menopause 12/26/2015 Postmenopausal atrophic vaginitis 12/26/2015 Dyspareunia 12/26/2015 documented as of this encounter (statuses as of 07/06/2021) [facility] History of Past illness Narrative* Problem Noted Date Resolved Date Menorrhagia with regular cycle 03/15/2017 1 03/03/2017 Overview: Added automatically from request for surgery [id number] History of pulmonary embolism 04/25/2016 Neoplastic (malignant) related fatigue 7 01/01/2018 Hidradenitis suppurativa 01/17/2016 018 Vitamin D deficiency 06/09/2015 12/26/2015 HyperCKemia 05/06/2015 12/26/2015 Elevated aldolase level 05/06/2015 12/26/19 16 Chronic pain of both knees 05/06/201512/25 Pain in joint, multiple sites 05/06/2015 Myalgia 05/06/2015 12/26/2015 Fatigue 05/06/2015 12/26/2015 Malaise and fatigue 03/24/2015 12/26/2015 Gastroesophageal reflux disease without esophagi tis 02/23/2015 12/26/2015 Laryngitis 02/23/2015 12/26/2015 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 10/28/2014 12/26/2015 Papanicolaou smear of cervix with low grade squamous intraepithelial lesion (LGSIL) 10/24/2014 12/25/2019 Pain in joint, ankle and foot 09/27/2014 ASCUS favor dysplasia 09/18/2014 12/26/2015 Visit for gynecologic examination 09/07/2014 12/26/2015 Postmenopausal HRT (hormone replacement therapy) 08/18/2014 12/26/2015 Overview: offered Gait abnormality 07/22/2014 12/26/2015 Weakness of both legs 07/22/2014 12/26/2015 Sprain of ankle, left 06/29/2014 12/26/2015 PCP (pneumocystis jiroveci pneumonia) 06/03/2014 12/26/2015 Acute respiratory failure with hypoxemia 015 12/26/2015 Overview: Increased O2 requirement overnight (2L to 5L) - bronchoscopy with BAL/TBLB tomorrow 8 AM. - NPO from midnight - hold tonight dose of lovenox. Radiation pneumonitis 05/11/2014 12/26/2015 Overview: 40 mg prednisone daily Immunodeficiency with predominant T-cell defect, unspecified 03/11/2014 12/26/2015 Urgency of micturation 03/04/2014 6 Urinary frequency 03/04/2014 12/26/2015 Arm pain, left 07/06/2013 12/26/2015 Back pain without radiation 07/06/201308/2015 Abnormal finding on imaging 07/06/201308/2015 Elevated sed rate 07/06/2013 12/26/2015 Hyperpigmentation of skin 03/31/20132015 Overview: --resolved --bilateral breast tissue and axilla --order mycolog cream --monitor Diarrhea 03/31/2013 12/26/2015 Overview: - c diff pending Mucositis (ulcerative) due to antineoplastic the rapy 03/24/2013 12/26/2015 Overview: --improved --oxy prn --mouth care measures. Reflux 03/23/2013 12/26/2015 Overview: --improved with protonix Elevated LFTs 03/22/2013 12/26/2015 Overview: --increased AST ALT during chemo, resolved. Excess fluid volume 03/21/2013 12/26/2015 Overview: --diuresis as needed --continue to monitor volume status CINV (chemotherapy-induced nausea and vomiting) 03/17/2013 10/13/2015 Overview: --Resolved --Ativan PRN (none used) Peripheral neuropathy 03/16/2013 12/26/2015 Overview: --gabapentin 300mg TID with increased symptoms, bedtime dose of gabapentin increased to 600mg with improvement reported, continue DVT prophylaxis 03/16/2013 12/26/2015 Overview: --platelet count decreasing, d/c heparin SQ --encourage ambulation Insomnia 03/16/2013 12/26/2015 Overview: --ambien PRN at HS, with relief, but with vivid dreams, ambien d/c --restoril at 30mg PRN at HS with relief, continue Chronic chest pain 03/16/2013 12/26/2015 Overview: --now resolved --since Hodgkin lymphoma diagnosis per patient Hospital discharge follow-up 03/16/201308/2015 Overview: --Patient will need to follow up with Dr. Unger after discharge Tachycardia 03/16/2013 12/26/2015 Overview: --patient taking atenolol 100mg BID at home, now BP running lower, decreased atenolol dose to 50mg BID with hypotension. --increase to 75mg BID, d/t tachycardia(HRs >110 while afebrile), HR now controlled, continue --monitor closely Electrolyte and fluid disorders not elsewhere cl assified 02/16/2013 12/26/2015 DISPOSITION AND FOLLOW-UP 10/27/20122015 Overview: 32 yo female from [place], [place]. Family involved with care, at bedside. plan to discharge patient home - will arrange with case management for post op care as needed - follow up in OPD in 7-10 days Post-op pain 10/27/2012 12/26/2015 Overview: currently well controlled with [employer] REPRESENTATIVE. will start PO pain meds today 10/27. tolerating percocet, pain relatively well controlled. Hodgkin's disease with nodular sclerosis 013 12/26/2015 Overview: Oncology history (per Dr. 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 Hodgkin's disease, unspecified 02/05/2012 0 05/11/2014 Vaginal bleeding 12/26/2015 Overview: --likely from thrombocytopenia. No menses in prior 8 months. Scant amount reported on 03/29 and 03/30, now resolved --monitor bleeding by counting pads --should f/u with her [employer] provider after BMT Premature menopause 12/26/2015 Postmenopausal atrophic vaginitis 12/26/2015 Dyspareunia 12/26/2015 documented as of this encounter (statuses as of 2021) [facility] History of Past illness Narrative* Problem Noted Date Resolved Date Menorrhagia with regular cycle 03/15/2017 1 03/03/2017 Overview: Added automatically from request for surgery [id number] History of pulmonary embolism 04/25/2016 Neoplastic (malignant) related fatigue 7 01/01/2018 Hidradenitis suppurativa 01/17/2016 018 Vitamin D deficiency 06/09/2015 12/26/2015 HyperCKemia 05/06/2015 12/26/2015 Elevated aldolase level 05/06/2015 12/26/19 16 Chronic pain of both knees 05/06/201512/25 Pain in joint, multiple sites 05/06/2015 Myalgia 05/06/2015 12/26/2015 Fatigue 05/06/2015 12/26/2015 Malaise and fatigue 03/24/2015 12/26/2015 Gastroesophageal reflux disease without esophagi tis 02/23/2015 12/26/2015 Laryngitis 02/23/2015 12/26/2015 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 10/28/2014 12/26/2015 Papanicolaou smear of cervix with low grade squamous intraepithelial lesion (LGSIL) 10/24/2014 12/25/2019 Pain in joint, ankle and foot 09/27/2014 ASCUS favor dysplasia 09/18/2014 12/26/2015 Visit for gynecologic examination 09/07/2014 12/26/2015 Postmenopausal HRT (hormone replacement therapy) 08/18/2014 12/26/2015 Overview: offered Gait abnormality 07/22/2014 12/26/2015 Weakness of both legs 07/22/2014 12/26/2015 Sprain of ankle, left 06/29/2014 12/26/2015 PCP (pneumocystis jiroveci pneumonia) 06/03/2014 12/26/2015 Acute respiratory failure with hypoxemia 015 12/26/2015 Overview: Increased O2 requirement overnight (2L to 5L) - bronchoscopy with BAL/TBLB tomorrow 8 AM. - NPO from midnight - hold tonight dose of lovenox. Radiation pneumonitis 05/11/2014 12/26/2015 Overview: 40 mg prednisone daily Immunodeficiency with predominant T-cell defect, unspecified 03/11/2014 12/26/2015 Urgency of micturation 03/04/2014 6 Urinary frequency 03/04/2014 12/26/2015 Arm pain, left 07/06/2013 12/26/2015 Back pain without radiation 07/06/201308/2015 Abnormal finding on imaging 07/06/201308/2015 Elevated sed rate 07/06/2013 12/26/2015 Hyperpigmentation of skin 03/31/20132015 Overview: --resolved --bilateral breast tissue and axilla --order mycolog cream --monitor Diarrhea 03/31/2013 12/26/2015 Overview: - c diff pending Mucositis (ulcerative) due to antineoplastic the rapy 03/24/2013 12/26/2015 Overview: --improved --oxy prn --mouth care measures. Reflux 03/23/2013 12/26/2015 Overview: --improved with protonix Elevated LFTs 03/22/2013 12/26/2015 Overview: --increased AST ALT during chemo, resolved. Excess fluid volume 03/21/2013 12/26/2015 Overview: --diuresis as needed --continue to monitor volume status CINV (chemotherapy-induced nausea and vomiting) 03/17/2013 10/13/2015 Overview: --Resolved --Ativan PRN (none used) Peripheral neuropathy 03/16/2013 12/26/2015 Overview: --gabapentin 300mg TID with increased symptoms, bedtime dose of gabapentin increased to 600mg with improvement reported, continue DVT prophylaxis 03/16/2013 12/26/2015 Overview: --platelet count decreasing, d/c heparin SQ --encourage ambulation Insomnia 03/16/2013 12/26/2015 Overview: --ambien PRN at HS, with relief, but with vivid dreams, ambien d/c --restoril at 30mg PRN at HS with relief, continue Chronic chest pain 03/16/2013 12/26/2015 Overview: --now resolved --since Hodgkin lymphoma diagnosis per patient Hospital discharge follow-up 03/16/201308/2015 Overview: --Patient will need to follow up with Dr. Unger after discharge Tachycardia 03/16/2013 12/26/2015 Overview: --patient taking atenolol 100mg BID at home, now BP running lower, decreased atenolol dose to 50mg BID with hypotension. --increase to 75mg BID, d/t tachycardia(HRs >110 while afebrile), HR now controlled, continue --monitor closely Electrolyte and fluid disorders not elsewhere cl assified 02/16/2013 12/26/2015 DISPOSITION AND FOLLOW-UP 10/27/20122015 Overview: 32 yo female from [place], [place]. Family involved with care, at bedside. plan to discharge patient home - will arrange with case management for post op care as needed - follow up in OPD in 7-10 days Post-op pain 10/27/2012 12/26/2015 Overview: currently well controlled with [employer] REPRESENTATIVE. will start PO pain meds today 10/27. tolerating percocet, pain relatively well controlled. Hodgkin's disease with nodular sclerosis 013 12/26/2015 Overview: Oncology history (per Dr. 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 Hodgkin's disease, unspecified 02/05/2012 0 05/11/2014 Vaginal bleeding 12/26/2015 Overview: --likely from thrombocytopenia. No menses in prior 8 months. Scant amount reported on 03/29 and 03/30, now resolved --monitor bleeding by counting pads --should f/u with her [employer] provider after BMT Premature menopause 12/26/2015 Postmenopausal atrophic vaginitis 12/26/2015 Dyspareunia 12/26/2015 documented as of this encounter (statuses as of 2021) [facility] History of Past illness Narrative* Problem Noted Date Resolved Date Menorrhagia with regular cycle 03/15/2017 1 03/03/2017 Overview: Added automatically from request for surgery [id number] History of pulmonary embolism 04/25/2016 Neoplastic (malignant) related fatigue 7 01/01/2018 Hidradenitis suppurativa 01/17/2016 018 Vitamin D deficiency 06/09/2015 12/26/2015 HyperCKemia 05/06/2015 12/26/2015 Elevated aldolase level 05/06/2015 12/26/19 16 Chronic pain of both knees 05/06/201512/25 Pain in joint, multiple sites 05/06/2015 Myalgia 05/06/2015 12/26/2015 Fatigue 05/06/2015 12/26/2015 Malaise and fatigue 03/24/2015 12/26/2015 Gastroesophageal reflux disease without esophagi tis 02/23/2015 12/26/2015 Laryngitis 02/23/2015 12/26/2015 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 10/28/2014 12/26/2015 Papanicolaou smear of cervix with low grade squamous intraepithelial lesion (LGSIL) 10/24/2014 12/25/2019 Pain in joint, ankle and foot 09/27/2014 ASCUS favor dysplasia 09/18/2014 12/26/2015 Visit for gynecologic examination 09/07/2014 12/26/2015 Postmenopausal HRT (hormone replacement therapy) 08/18/2014 12/26/2015 Overview: offered Gait abnormality 07/22/2014 12/26/2015 Weakness of both legs 07/22/2014 12/26/2015 Sprain of ankle, left 06/29/2014 12/26/2015 PCP (pneumocystis jiroveci pneumonia) 06/03/2014 12/26/2015 Acute respiratory failure with hypoxemia 015 12/26/2015 Overview: Increased O2 requirement overnight (2L to 5L) - bronchoscopy with BAL/TBLB tomorrow 8 AM. - NPO from midnight - hold tonight dose of lovenox. Radiation pneumonitis 05/11/2014 12/26/2015 Overview: 40 mg prednisone daily Immunodeficiency with predominant T-cell defect, unspecified 03/11/2014 12/26/2015 Urgency of micturation 03/04/2014 6 Urinary frequency 03/04/2014 12/26/2015 Arm pain, left 07/06/2013 12/26/2015 Back pain without radiation 07/06/201308/2015 Abnormal finding on imaging 07/06/201308/2015 Elevated sed rate 07/06/2013 12/26/2015 Hyperpigmentation of skin 03/31/20132015 Overview: --resolved --bilateral breast tissue and axilla --order mycolog cream --monitor Diarrhea 03/31/2013 12/26/2015 Overview: - c diff pending Mucositis (ulcerative) due to antineoplastic the rapy 03/24/2013 12/26/2015 Overview: --improved --oxy prn --mouth care measures. Reflux 03/23/2013 12/26/2015 Overview: --improved with protonix Elevated LFTs 03/22/2013 12/26/2015 Overview: --increased AST ALT during chemo, resolved. Excess fluid volume 03/21/2013 12/26/2015 Overview: --diuresis as needed --continue to monitor volume status CINV (chemotherapy-induced nausea and vomiting) 03/17/2013 10/13/2015 Overview: --Resolved --Ativan PRN (none used) Peripheral neuropathy 03/16/2013 12/26/2015 Overview: --gabapentin 300mg TID with increased symptoms, bedtime dose of gabapentin increased to 600mg with improvement reported, continue DVT prophylaxis 03/16/2013 12/26/2015 Overview: --platelet count decreasing, d/c heparin SQ --encourage ambulation Insomnia 03/16/2013 12/26/2015 Overview: --ambien PRN at HS, with relief, but with vivid dreams, ambien d/c --restoril at 30mg PRN at HS with relief, continue Chronic chest pain 03/16/2013 12/26/2015 Overview: --now resolved --since Hodgkin lymphoma diagnosis per patient Hospital discharge follow-up 03/16/201308/2015 Overview: --Patient will need to follow up with Dr. Unger after discharge Tachycardia 03/16/2013 12/26/2015 Overview: --patient taking atenolol 100mg BID at home, now BP running lower, decreased atenolol dose to 50mg BID with hypotension. --increase to 75mg BID, d/t tachycardia(HRs >110 while afebrile), HR now controlled, continue --monitor closely Electrolyte and fluid disorders not elsewhere cl assified 02/16/2013 12/26/2015 DISPOSITION AND FOLLOW-UP 10/27/20122015 Overview: 32 yo female from [place], [place]. Family involved with care, at bedside. plan to discharge patient home - will arrange with case management for post op care as needed - follow up in OPD in 7-10 days Post-op pain 10/27/2012 12/26/2015 Overview: currently well controlled with [employer] REPRESENTATIVE. will start PO pain meds today 10/27. tolerating percocet, pain relatively well controlled. Hodgkin's disease with nodular sclerosis 013 12/26/2015 Overview: Oncology history (per Dr. 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 Hodgkin's disease, unspecified 02/05/2012 0 05/11/2014 Vaginal bleeding 12/26/2015 Overview: --likely from thrombocytopenia. No menses in prior 8 months. Scant amount reported on 03/29 and 03/30, now resolved --monitor bleeding by counting pads --should f/u with her [employer] provider after BMT Premature menopause 12/26/2015 Postmenopausal atrophic vaginitis 12/26/2015 Dyspareunia 12/26/2015 documented as of this encounter (statuses as of 07/26/2021) [facility] History of Past illness Narrative* Problem Noted Date Resolved Date Menorrhagia with regular cycle 03/15/2017 1 03/03/2017 Overview: Added automatically from request for surgery [id number] History of pulmonary embolism 04/25/2016 Neoplastic (malignant) related fatigue 7 01/01/2018 Hidradenitis suppurativa 01/17/2016 018 Vitamin D deficiency 06/09/2015 12/26/2015 HyperCKemia 05/06/2015 12/26/2015 Elevated aldolase level 05/06/2015 12/26/19 16 Chronic pain of both knees 05/06/201512/25 Pain in joint, multiple sites 05/06/2015 Myalgia 05/06/2015 12/26/2015 Fatigue 05/06/2015 12/26/2015 Malaise and fatigue 03/24/2015 12/26/2015 Gastroesophageal reflux disease without esophagi tis 02/23/2015 12/26/2015 Laryngitis 02/23/2015 12/26/2015 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 10/28/2014 12/26/2015 Papanicolaou smear of cervix with low grade squamous intraepithelial lesion (LGSIL) 10/24/2014 12/25/2019 Pain in joint, ankle and foot 09/27/2014 ASCUS favor dysplasia 09/18/2014 12/26/2015 Visit for gynecologic examination 09/07/2014 12/26/2015 Postmenopausal HRT (hormone replacement therapy) 08/18/2014 12/26/2015 Overview: offered Gait abnormality 07/22/2014 12/26/2015 Weakness of both legs 07/22/2014 12/26/2015 Sprain of ankle, left 06/29/2014 12/26/2015 PCP (pneumocystis jiroveci pneumonia) 06/03/2014 12/26/2015 Acute respiratory failure with hypoxemia 015 12/26/2015 Overview: Increased O2 requirement overnight (2L to 5L) - bronchoscopy with BAL/TBLB tomorrow 8 AM. - NPO from midnight - hold tonight dose of lovenox. Radiation pneumonitis 05/11/2014 12/26/2015 Overview: 40 mg prednisone daily Immunodeficiency with predominant T-cell defect, unspecified 03/11/2014 12/26/2015 Urgency of micturation 03/04/2014 6 Urinary frequency 03/04/2014 12/26/2015 Arm pain, left 07/06/2013 12/26/2015 Back pain without radiation 07/06/201308/2015 Abnormal finding on imaging 07/06/201308/2015 Elevated sed rate 07/06/2013 12/26/2015 Hyperpigmentation of skin 03/31/20132015 Overview: --resolved --bilateral breast tissue and axilla --order mycolog cream --monitor Diarrhea 03/31/2013 12/26/2015 Overview: - c diff pending Mucositis (ulcerative) due to antineoplastic the rapy 03/24/2013 12/26/2015 Overview: --improved --oxy prn --mouth care measures. Reflux 03/23/2013 12/26/2015 Overview: --improved with protonix Elevated LFTs 03/22/2013 12/26/2015 Overview: --increased AST ALT during chemo, resolved. Excess fluid volume 03/21/2013 12/26/2015 Overview: --diuresis as needed --continue to monitor volume status CINV (chemotherapy-induced nausea and vomiting) 03/17/2013 10/13/2015 Overview: --Resolved --Ativan PRN (none used) Peripheral neuropathy 03/16/2013 12/26/2015 Overview: --gabapentin 300mg TID with increased symptoms, bedtime dose of gabapentin increased to 600mg with improvement reported, continue DVT prophylaxis 03/16/2013 12/26/2015 Overview: --platelet count decreasing, d/c heparin SQ --encourage ambulation Insomnia 03/16/2013 12/26/2015 Overview: --ambien PRN at HS, with relief, but with vivid dreams, ambien d/c --restoril at 30mg PRN at HS with relief, continue Chronic chest pain 03/16/2013 12/26/2015 Overview: --now resolved --since Hodgkin lymphoma diagnosis per patient Hospital discharge follow-up 03/16/201308/2015 Overview: --Patient will need to follow up with Dr. Unger after discharge Tachycardia 03/16/2013 12/26/2015 Overview: --patient taking atenolol 100mg BID at home, now BP running lower, decreased atenolol dose to 50mg BID with hypotension. --increase to 75mg BID, d/t tachycardia(HRs >110 while afebrile), HR now controlled, continue --monitor closely Electrolyte and fluid disorders not elsewhere cl assified 02/16/2013 12/26/2015 DISPOSITION AND FOLLOW-UP 10/27/20122015 Overview: 32 yo female from [place], [place]. Family involved with care, at bedside. plan to discharge patient home - will arrange with case management for post op care as needed - follow up in OPD in 7-10 days Post-op pain 10/27/2012 12/26/2015 Overview: currently well controlled with [employer] REPRESENT[employer]IVE. will start PO pain meds today 10/27. tolerating percocet, pain relatively well controlled. Hodgkin's disease with nodular sclerosis 013 12/26/2015 Overview: Oncology history (per Dr. 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 Hodgkin's disease, unspecified 02/05/2012 0 05/11/2014 Vaginal bleeding 12/26/2015 Overview: --likely from thrombocytopenia. No menses in prior 8 months. Scant amount reported on 03/29 and 03/30, now resolved --monitor bleeding by counting pads --should f/u with her [employer] provider after BMT Premature menopause 12/26/2015 Postmenopausal atrophic vaginitis 12/26/2015 Dyspareunia 12/26/2015 documented as of this encounter (statuses as of 07/28/2021) [facility] History of Past illness Narrative* Problem Noted Date Resolved Date Menorrhagia with regular cycle 03/15/2017 1 03/03/2017 Overview: Added automatically from request for surgery [id number] History of pulmonary embolism 04/25/2016 Neoplastic (malignant) related fatigue 7 01/01/2018 Hidradenitis suppurativa 01/17/2016 018 Vitamin D deficiency 06/09/2015 12/26/2015 HyperCKemia 05/06/2015 12/26/2015 Elevated aldolase level 05/06/2015 12/26/19 16 Chronic pain of both knees 05/06/201512/25 Pain in joint, multiple sites 05/06/2015 Myalgia 05/06/2015 12/26/2015 Fatigue 05/06/2015 12/26/2015 Malaise and fatigue 03/24/2015 12/26/2015 Gastroesophageal reflux disease without esophagi tis 02/23/2015 12/26/2015 Laryngitis 02/23/2015 12/26/2015 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 10/28/2014 12/26/2015 Papanicolaou smear of cervix with low grade squamous intraepithelial lesion (LGSIL) 10/24/2014 12/25/2019 Pain in joint, ankle and foot 09/27/2014 ASCUS favor dysplasia 09/18/2014 12/26/2015 Visit for gynecologic examination 09/07/2014 12/26/2015 Postmenopausal HRT (hormone replacement therapy) 08/18/2014 12/26/2015 Overview: offered Gait abnormality 07/22/2014 12/26/2015 Weakness of both legs 07/22/2014 12/26/2015 Sprain of ankle, left 06/29/2014 12/26/2015 PCP (pneumocystis jiroveci pneumonia) 06/03/2014 12/26/2015 Acute respiratory failure with hypoxemia 015 12/26/2015 Overview: Increased O2 requirement overnight (2L to 5L) - bronchoscopy with BAL/TBLB tomorrow 8 AM. - NPO from midnight - hold tonight dose of lovenox. Radiation pneumonitis 05/11/2014 12/26/2015 Overview: 40 mg prednisone daily Immunodeficiency with predominant T-cell defect, unspecified 03/11/2014 12/26/2015 Urgency of micturation 03/04/2014 6 Urinary frequency 03/04/2014 12/26/2015 Arm pain, left 07/06/2013 12/26/2015 Back pain without radiation 07/06/201308/2015 Abnormal finding on imaging 07/06/201308/2015 Elevated sed rate 07/06/2013 12/26/2015 Hyperpigmentation of skin 03/31/20132015 Overview: --resolved --bilateral breast tissue and axilla --order mycolog cream --monitor Diarrhea 03/31/2013 12/26/2015 Overview: - c diff pending Mucositis (ulcerative) due to antineoplastic the rapy 03/24/2013 12/26/2015 Overview: --improved --oxy prn --mouth care measures. Reflux 03/23/2013 12/26/2015 Overview: --improved with protonix Elevated LFTs 03/22/2013 12/26/2015 Overview: --increased AST ALT during chemo, resolved. Excess fluid volume 03/21/2013 12/26/2015 Overview: --diuresis as needed --continue to monitor volume status CINV (chemotherapy-induced nausea and vomiting) 03/17/2013 10/13/2015 Overview: --Resolved --Ativan PRN (none used) Peripheral neuropathy 03/16/2013 12/26/2015 Overview: --gabapentin 300mg TID with increased symptoms, bedtime dose of gabapentin increased to 600mg with improvement reported, continue DVT prophylaxis 03/16/2013 12/26/2015 Overview: --platelet count decreasing, d/c heparin SQ --encourage ambulation Insomnia 03/16/2013 12/26/2015 Overview: --ambien PRN at HS, with relief, but with vivid dreams, ambien d/c --restoril at 30mg PRN at HS with relief, continue Chronic chest pain 03/16/2013 12/26/2015 Overview: --now resolved --since Hodgkin lymphoma diagnosis per patient Hospital discharge follow-up 03/16/201308/2015 Overview: --Patient will need to follow up with Dr. Unger after discharge Tachycardia 03/16/2013 12/26/2015 Overview: --patient taking atenolol 100mg BID at home, now BP running lower, decreased atenolol dose to 50mg BID with hypotension. --increase to 75mg BID, d/t tachycardia(HRs >110 while afebrile), HR now controlled, continue --monitor closely Electrolyte and fluid disorders not elsewhere cl assified 02/16/2013 12/26/2015 DISPOSITION AND FOLLOW-UP 10/27/20122015 Overview: 32 yo female from [place], [place]. Family involved with care, at bedside. plan to discharge patient home - will arrange with case management for post op care as needed - follow up in OPD in 7-10 days Post-op pain 10/27/2012 12/26/2015 Overview: currently well controlled with [employer] REPRESENTATIVE. will start PO pain meds today 10/27. tolerating percocet, pain relatively well controlled. Hodgkin's disease with nodular sclerosis 013 12/26/2015 Overview: Oncology history (per Dr. 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 Hodgkin's disease, unspecified 02/05/2012 0 05/11/2014 Vaginal bleeding 12/26/2015 Overview: --likely from thrombocytopenia. No menses in prior 8 months. Scant amount reported on 03/29 and 03/30, now resolved --monitor bleeding by counting pads --should f/u with her [employer] provider after BMT Premature menopause 12/26/2015 Postmenopausal atrophic vaginitis 12/26/2015 Dyspareunia 12/26/2015 documented as of this encounter (statuses as of 07/31/2021) [facility] History of Past illness Narrative* Problem Noted Date Resolved Date Menorrhagia with regular cycle 03/15/2017 1 03/03/2017 Overview: Added automatically from request for surgery [id number] History of pulmonary embolism 04/25/2016 Neoplastic (malignant) related fatigue 7 01/01/2018 Hidradenitis suppurativa 01/17/2016 018 Vitamin D deficiency 06/09/2015 12/26/2015 HyperCKemia 05/06/2015 12/26/2015 Elevated aldolase level 05/06/2015 12/26/19 16 Chronic pain of both knees 05/06/201512/25 Pain in joint, multiple sites 05/06/2015 Myalgia 05/06/2015 12/26/2015 Fatigue 05/06/2015 12/26/2015 Malaise and fatigue 03/24/2015 12/26/2015 Gastroesophageal reflux disease without esophagi tis 02/23/2015 12/26/2015 Laryngitis 02/23/2015 12/26/2015 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 10/28/2014 12/26/2015 Papanicolaou smear of cervix with low grade squamous intraepithelial lesion (LGSIL) 10/24/2014 12/25/2019 Pain in joint, ankle and foot 09/27/2014 ASCUS favor dysplasia 09/18/2014 12/26/2015 Visit for gynecologic examination 09/07/2014 12/26/2015 Postmenopausal HRT (hormone replacement therapy) 08/18/2014 12/26/2015 Overview: offered Gait abnormality 07/22/2014 12/26/2015 Weakness of both legs 07/22/2014 12/26/2015 Sprain of ankle, left 06/29/2014 12/26/2015 PCP (pneumocystis jiroveci pneumonia) 06/03/2014 12/26/2015 Acute respiratory failure with hypoxemia 015 12/26/2015 Overview: Increased O2 requirement overnight (2L to 5L) - bronchoscopy with BAL/TBLB tomorrow 8 AM. - NPO from midnight - hold tonight dose of lovenox. Radiation pneumonitis 05/11/2014 12/26/2015 Overview: 40 mg prednisone daily Immunodeficiency with predominant T-cell defect, unspecified 03/11/2014 12/26/2015 Urgency of micturation 03/04/2014 6 Urinary frequency 03/04/2014 12/26/2015 Arm pain, left 07/06/2013 12/26/2015 Back pain without radiation 07/06/201308/2015 Abnormal finding on imaging 07/06/201308/2015 Elevated sed rate 07/06/2013 12/26/2015 Hyperpigmentation of skin 03/31/20132015 Overview: --resolved --bilateral breast tissue and axilla --order mycolog cream --monitor Diarrhea 03/31/2013 12/26/2015 Overview: - c diff pending Mucositis (ulcerative) due to antineoplastic the rapy 03/24/2013 12/26/2015 Overview: --improved --oxy prn --mouth care measures. Reflux 03/23/2013 12/26/2015 Overview: --improved with protonix Elevated LFTs 03/22/2013 12/26/2015 Overview: --increased AST ALT during chemo, resolved. Excess fluid volume 03/21/2013 12/26/2015 Overview: --diuresis as needed --continue to monitor volume status CINV (chemotherapy-induced nausea and vomiting) 03/17/2013 10/13/2015 Overview: --Resolved --Ativan PRN (none used) Peripheral neuropathy 03/16/2013 12/26/2015 Overview: --gabapentin 300mg TID with increased symptoms, bedtime dose of gabapentin increased to 600mg with improvement reported, continue DVT prophylaxis 03/16/2013 12/26/2015 Overview: --platelet count decreasing, d/c heparin SQ --encourage ambulation Insomnia 03/16/2013 12/26/2015 Overview: --ambien PRN at HS, with relief, but with vivid dreams, ambien d/c --restoril at 30mg PRN at HS with relief, continue Chronic chest pain 03/16/2013 12/26/2015 Overview: --now resolved --since Hodgkin lymphoma diagnosis per patient Hospital discharge follow-up 03/16/201308/2015 Overview: --Patient will need to follow up with Dr. Unger after discharge Tachycardia 03/16/2013 12/26/2015 Overview: --patient taking atenolol 100mg BID at home, now BP running lower, decreased atenolol dose to 50mg BID with hypotension. --increase to 75mg BID, d/t tachycardia(HRs >110 while afebrile), HR now controlled, continue --monitor closely Electrolyte and fluid disorders not elsewhere cl assified 02/16/2013 12/26/2015 DISPOSITION AND FOLLOW-UP 10/27/20122015 Overview: 32 yo female from [place], [place]. Family involved with care, at bedside. plan to discharge patient home - will arrange with case management for post op care as needed - follow up in OPD in 7-10 days Post-op pain 10/27/2012 12/26/2015 Overview: currently well controlled with [employer] REPRESENTATIVE. will start PO pain meds today 10/27. tolerating percocet, pain relatively well controlled. Hodgkin's disease with nodular sclerosis 013 12/26/2015 Overview: Oncology history (per Dr. 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 Hodgkin's disease, unspecified 02/05/2012 0 05/11/2014 Vaginal bleeding 12/26/2015 Overview: --likely from thrombocytopenia. No menses in prior 8 months. Scant amount reported on 03/29 and 03/30, now resolved --monitor bleeding by counting pads --should f/u with her [employer] provider after BMT Premature menopause 12/26/2015 Postmenopausal atrophic vaginitis 12/26/2015 Dyspareunia 12/26/2015 documented as of this encounter (statuses as of 07/31/2021) [facility] History of Past illness Narrative* Problem Noted Date Resolved Date Menorrhagia with regular cycle 03/15/2017 1 03/03/2017 Overview: Added automatically from request for surgery [id number] History of pulmonary embolism 04/25/2016 Neoplastic (malignant) related fatigue 7 01/01/2018 Hidradenitis suppurativa 01/17/2016 018 Vitamin D deficiency 06/09/2015 12/26/2015 HyperCKemia 05/06/2015 12/26/2015 Elevated aldolase level 05/06/2015 12/26/19 16 Chronic pain of both knees 05/06/201512/25 Pain in joint, multiple sites 05/06/2015 Myalgia 05/06/2015 12/26/2015 Fatigue 05/06/2015 12/26/2015 Malaise and fatigue 03/24/2015 12/26/2015 Gastroesophageal reflux disease without esophagi tis 02/23/2015 12/26/2015 Laryngitis 02/23/2015 12/26/2015 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 10/28/2014 12/26/2015 Papanicolaou smear of cervix with low grade squamous intraepithelial lesion (LGSIL) 10/24/2014 12/25/2019 Pain in joint, ankle and foot 09/27/2014 ASCUS favor dysplasia 09/18/2014 12/26/2015 Visit for gynecologic examination 09/07/2014 12/26/2015 Postmenopausal HRT (hormone replacement therapy) 08/18/2014 12/26/2015 Overview: offered Gait abnormality 07/22/2014 12/26/2015 Weakness of both legs 07/22/2014 12/26/2015 Sprain of ankle, left 06/29/2014 12/26/2015 PCP (pneumocystis jiroveci pneumonia) 06/03/2014 12/26/2015 Acute respiratory failure with hypoxemia 015 12/26/2015 Overview: Increased O2 requirement overnight (2L to 5L) - bronchoscopy with BAL/TBLB tomorrow 8 AM. - NPO from midnight - hold tonight dose of lovenox. Radiation pneumonitis 05/11/2014 12/26/2015 Overview: 40 mg prednisone daily Immunodeficiency with predominant T-cell defect, unspecified 03/11/2014 12/26/2015 Urgency of micturation 03/04/2014 6 Urinary frequency 03/04/2014 12/26/2015 Arm pain, left 07/06/2013 12/26/2015 Back pain without radiation 07/06/201308/2015 Abnormal finding on imaging 07/06/201308/2015 Elevated sed rate 07/06/2013 12/26/2015 Hyperpigmentation of skin 03/31/20132015 Overview: --resolved --bilateral breast tissue and axilla --order mycolog cream --monitor Diarrhea 03/31/2013 12/26/2015 Overview: - c diff pending Mucositis (ulcerative) due to antineoplastic the rapy 03/24/2013 12/26/2015 Overview: --improved --oxy prn --mouth care measures. Reflux 03/23/2013 12/26/2015 Overview: --improved with protonix Elevated LFTs 03/22/2013 12/26/2015 Overview: --increased AST ALT during chemo, resolved. Excess fluid volume 03/21/2013 12/26/2015 Overview: --diuresis as needed --continue to monitor volume status CINV (chemotherapy-induced nausea and vomiting) 03/17/2013 10/13/2015 Overview: --Resolved --Ativan PRN (none used) Peripheral neuropathy 03/16/2013 12/26/2015 Overview: --gabapentin 300mg TID with increased symptoms, bedtime dose of gabapentin increased to 600mg with improvement reported, continue DVT prophylaxis 03/16/2013 12/26/2015 Overview: --platelet count decreasing, d/c heparin SQ --encourage ambulation Insomnia 03/16/2013 12/26/2015 Overview: --ambien PRN at HS, with relief, but with vivid dreams, ambien d/c --restoril at 30mg PRN at HS with relief, continue Chronic chest pain 03/16/2013 12/26/2015 Overview: --now resolved --since Hodgkin lymphoma diagnosis per patient Hospital discharge follow-up 03/16/201308/2015 Overview: --Patient will need to follow up with Dr. Unger after discharge Tachycardia 03/16/2013 12/26/2015 Overview: --patient taking atenolol 100mg BID at home, now BP running lower, decreased atenolol dose to 50mg BID with hypotension. --increase to 75mg BID, d/t tachycardia(HRs >110 while afebrile), HR now controlled, continue --monitor closely Electrolyte and fluid disorders not elsewhere cl assified 02/16/2013 12/26/2015 DISPOSITION AND FOLLOW-UP 10/27/20122015 Overview: 32 yo female from [place], [place]. Family involved with care, at bedside. plan to discharge patient home - will arrange with case management for post op care as needed - follow up in OPD in 7-10 days Post-op pain 10/27/2012 12/26/2015 Overview: currently well controlled with [employer] REPRESENTATIVE. will start PO pain meds today 10/27. tolerating percocet, pain relatively well controlled. Hodgkin's disease with nodular sclerosis 013 12/26/2015 Overview: Oncology history (per Dr. 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 Hodgkin's disease, unspecified 02/05/2012 0 05/11/2014 Vaginal bleeding 12/26/2015 Overview: --likely from thrombocytopenia. No menses in prior 8 months. Scant amount reported on 03/29 and 03/30, now resolved --monitor bleeding by counting pads --should f/u with her [employer] provider after BMT Premature menopause 12/26/2015 Postmenopausal atrophic vaginitis 12/26/2015 Dyspareunia 12/26/2015 documented as of this encounter (statuses as of 08/03/2021) [facility] History of Past illness Narrative* Problem Noted Date Resolved Date Menorrhagia with regular cycle 03/15/2017 1 03/03/2017 Overview: Added automatically from request for surgery [id number] History of pulmonary embolism 04/25/2016 Neoplastic (malignant) related fatigue 7 01/01/2018 Hidradenitis suppurativa 01/17/2016 018 Vitamin D deficiency 06/09/2015 12/26/2015 HyperCKemia 05/06/2015 12/26/2015 Elevated aldolase level 05/06/2015 12/26/19 16 Chronic pain of both knees 05/06/201512/25 Pain in joint, multiple sites 05/06/2015 Myalgia 05/06/2015 12/26/2015 Fatigue 05/06/2015 12/26/2015 Malaise and fatigue 03/24/2015 12/26/2015 Gastroesophageal reflux disease without esophagi tis 02/23/2015 12/26/2015 Laryngitis 02/23/2015 12/26/2015 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 10/28/2014 12/26/2015 Papanicolaou smear of cervix with low grade squamous intraepithelial lesion (LGSIL) 10/24/2014 12/25/2019 Pain in joint, ankle and foot 09/27/2014 ASCUS favor dysplasia 09/18/2014 12/26/2015 Visit for gynecologic examination 09/07/2014 12/26/2015 Postmenopausal HRT (hormone replacement therapy) 08/18/2014 12/26/2015 Overview: offered Gait abnormality 07/22/2014 12/26/2015 Weakness of both legs 07/22/2014 12/26/2015 Sprain of ankle, left 06/29/2014 12/26/2015 PCP (pneumocystis jiroveci pneumonia) 06/03/2014 12/26/2015 Acute respiratory failure with hypoxemia 015 12/26/2015 Overview: Increased O2 requirement overnight (2L to 5L) - bronchoscopy with BAL/TBLB tomorrow 8 AM. - NPO from midnight - hold tonight dose of lovenox. Radiation pneumonitis 05/11/2014 12/26/2015 Overview: 40 mg prednisone daily Immunodeficiency with predominant T-cell defect, unspecified 03/11/2014 12/26/2015 Urgency of micturation 03/04/2014 6 Urinary frequency 03/04/2014 12/26/2015 Arm pain, left 07/06/2013 12/26/2015 Back pain without radiation 07/06/201308/2015 Abnormal finding on imaging 07/06/201308/2015 Elevated sed rate 07/06/2013 12/26/2015 Hyperpigmentation of skin 03/31/20132015 Overview: --resolved --bilateral breast tissue and axilla --order mycolog cream --monitor Diarrhea 03/31/2013 12/26/2015 Overview: - c diff pending Mucositis (ulcerative) due to antineoplastic the rapy 03/24/2013 12/26/2015 Overview: --improved --oxy prn --mouth care measures. Reflux 03/23/2013 12/26/2015 Overview: --improved with protonix Elevated LFTs 03/22/2013 12/26/2015 Overview: --increased AST ALT during chemo, resolved. Excess fluid volume 03/21/2013 12/26/2015 Overview: --diuresis as needed --continue to monitor volume status CINV (chemotherapy-induced nausea and vomiting) 03/17/2013 10/13/2015 Overview: --Resolved --Ativan PRN (none used) Peripheral neuropathy 03/16/2013 12/26/2015 Overview: --gabapentin 300mg TID with increased symptoms, bedtime dose of gabapentin increased to 600mg with improvement reported, continue DVT prophylaxis 03/16/2013 12/26/2015 Overview: --platelet count decreasing, d/c heparin SQ --encourage ambulation Insomnia 03/16/2013 12/26/2015 Overview: --ambien PRN at HS, with relief, but with vivid dreams, ambien d/c --restoril at 30mg PRN at HS with relief, continue Chronic chest pain 03/16/2013 12/26/2015 Overview: --now resolved --since Hodgkin lymphoma diagnosis per patient Hospital discharge follow-up 03/16/201308/2015 Overview: --Patient will need to follow up with Dr. Unger after discharge Tachycardia 03/16/2013 12/26/2015 Overview: --patient taking atenolol 100mg BID at home, now BP running lower, decreased atenolol dose to 50mg BID with hypotension. --increase to 75mg BID, d/t tachycardia(HRs >110 while afebrile), HR now controlled, continue --monitor closely Electrolyte and fluid disorders not elsewhere cl assified 02/16/2013 12/26/2015 DISPOSITION AND FOLLOW-UP 10/27/20122015 Overview: 32 yo female from [place], [place]. Family involved with care, at bedside. plan to discharge patient home - will arrange with case management for post op care as needed - follow up in OPD in 7-10 days Post-op pain 10/27/2012 12/26/2015 Overview: currently well controlled with [employer] REPRESENT[employer]IVE. will start PO pain meds today 10/27. tolerating percocet, pain relatively well controlled. Hodgkin's disease with nodular sclerosis 013 12/26/2015 Overview: Oncology history (per Dr. 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 Hodgkin's disease, unspecified 02/05/2012 0 05/11/2014 Vaginal bleeding 12/26/2015 Overview: --likely from thrombocytopenia. No menses in prior 8 months. Scant amount reported on 03/29 and 03/30, now resolved --monitor bleeding by counting pads --should f/u with her [employer] [employer] provider after BMT Premature menopause 12/26/2015 Postmenopausal atrophic vaginitis 12/26/2015 Dyspareunia 12/26/2015 documented as of this encounter (statuses as of 08/15/2021) [facility] History of Past illness Narrative* Problem Noted Date Resolved Date Menorrhagia with regular cycle 03/15/2017 1 03/03/2017 Overview: Added automatically from request for surgery [id number] History of pulmonary embolism 04/25/2016 Neoplastic (malignant) related fatigue 7 01/01/2018 Hidradenitis suppurativa 01/17/2016 018 Vitamin D deficiency 06/09/2015 12/26/2015 HyperCKemia 05/06/2015 12/26/2015 Elevated aldolase level 05/06/2015 12/26/19 16 Chronic pain of both knees 05/06/201512/25 Pain in joint, multiple sites 05/06/2015 Myalgia 05/06/2015 12/26/2015 Fatigue 05/06/2015 12/26/2015 Malaise and fatigue 03/24/2015 12/26/2015 Gastroesophageal reflux disease without esophagi tis 02/23/2015 12/26/2015 Laryngitis 02/23/2015 12/26/2015 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 10/28/2014 12/26/2015 Papanicolaou smear of cervix with low grade squamous intraepithelial lesion (LGSIL) 10/24/2014 12/25/2019 Pain in joint, ankle and foot 09/27/2014 ASCUS favor dysplasia 09/18/2014 12/26/2015 Visit for gynecologic examination 09/07/2014 12/26/2015 Postmenopausal HRT (hormone replacement therapy) 08/18/2014 12/26/2015 Overview: offered Gait abnormality 07/22/2014 12/26/2015 Weakness of both legs 07/22/2014 12/26/2015 Sprain of ankle, left 06/29/2014 12/26/2015 PCP (pneumocystis jiroveci pneumonia) 06/03/2014 12/26/2015 Acute respiratory failure with hypoxemia 015 12/26/2015 Overview: Increased O2 requirement overnight (2L to 5L) - bronchoscopy with BAL/TBLB tomorrow 8 AM. - NPO from midnight - hold tonight dose of lovenox. Radiation pneumonitis 05/11/2014 12/26/2015 Overview: 40 mg prednisone daily Immunodeficiency with predominant T-cell defect, unspecified 03/11/2014 12/26/2015 Urgency of micturation 03/04/2014 6 Urinary frequency 03/04/2014 12/26/2015 Arm pain, left 07/06/2013 12/26/2015 Back pain without radiation 07/06/201308/2015 Abnormal finding on imaging 07/06/201308/2015 Elevated sed rate 07/06/2013 12/26/2015 Hyperpigmentation of skin 03/31/20132015 Overview: --resolved --bilateral breast tissue and axilla --order mycolog cream --monitor Diarrhea 03/31/2013 12/26/2015 Overview: - c diff pending Mucositis (ulcerative) due to antineoplastic the rapy 03/24/2013 12/26/2015 Overview: --improved --oxy prn --mouth care measures. Reflux 03/23/2013 12/26/2015 Overview: --improved with protonix Elevated LFTs 03/22/2013 12/26/2015 Overview: --increased AST ALT during chemo, resolved. Excess fluid volume 03/21/2013 12/26/2015 Overview: --diuresis as needed --continue to monitor volume status CINV (chemotherapy-induced nausea and vomiting) 03/17/2013 10/13/2015 Overview: --Resolved --Ativan PRN (none used) Peripheral neuropathy 03/16/2013 12/26/2015 Overview: --gabapentin 300mg TID with increased symptoms, bedtime dose of gabapentin increased to 600mg with improvement reported, continue DVT prophylaxis 03/16/2013 12/26/2015 Overview: --platelet count decreasing, d/c heparin SQ --encourage ambulation Insomnia 03/16/2013 12/26/2015 Overview: --ambien PRN at HS, with relief, but with vivid dreams, ambien d/c --restoril at 30mg PRN at HS with relief, continue Chronic chest pain 03/16/2013 12/26/2015 Overview: --now resolved --since Hodgkin lymphoma diagnosis per patient Hospital discharge follow-up 03/16/201308/2015 Overview: --Patient will need to follow up with Dr. Unger after discharge Tachycardia 03/16/2013 12/26/2015 Overview: --patient taking atenolol 100mg BID at home, now BP running lower, decreased atenolol dose to 50mg BID with hypotension. --increase to 75mg BID, d/t tachycardia(HRs >110 while afebrile), HR now controlled, continue --monitor closely Electrolyte and fluid disorders not elsewhere cl assified 02/16/2013 12/26/2015 DISPOSITION AND FOLLOW-UP 10/27/20122015 Overview: 32 yo female from [place], [place]. Family involved with care, at bedside. plan to discharge patient home - will arrange with case management for post op care as needed - follow up in OPD in 7-10 days Post-op pain 10/27/2012 12/26/2015 Overview: currently well controlled with [employer] REPRESENT[employer]IVE. will start PO pain meds today 10/27. tolerating percocet, pain relatively well controlled. Hodgkin's disease with nodular sclerosis 013 12/26/2015 Overview: Oncology history (per Dr. 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 Hodgkin's disease, unspecified 02/05/2012 0 05/11/2014 Vaginal bleeding 12/26/2015 Overview: --likely from thrombocytopenia. No menses in prior 8 months. Scant amount reported on 03/29 and 03/30, now resolved --monitor bleeding by counting pads --should f/u with her [employer] provider after BMT Premature menopause 12/26/2015 Postmenopausal atrophic vaginitis 12/26/2015 Dyspareunia 12/26/2015 documented as of this encounter (statuses as of 08/16/2021) [facility] History of Past illness Narrative* Problem Noted Date Resolved Date Menorrhagia with regular cycle 03/15/2017 1 03/03/2017 Overview: Added automatically from request for surgery [id number] History of pulmonary embolism 04/25/2016 Neoplastic (malignant) related fatigue 7 01/01/2018 Hidradenitis suppurativa 01/17/2016 018 Vitamin D deficiency 06/09/2015 12/26/2015 HyperCKemia 05/06/2015 12/26/2015 Elevated aldolase level 05/06/2015 12/26/19 16 Chronic pain of both knees 05/06/201512/25 Pain in joint, multiple sites 05/06/2015 Myalgia 05/06/2015 12/26/2015 Fatigue 05/06/2015 12/26/2015 Malaise and fatigue 03/24/2015 12/26/2015 Gastroesophageal reflux disease without esophagi tis 02/23/2015 12/26/2015 Laryngitis 02/23/2015 12/26/2015 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 10/28/2014 12/26/2015 Papanicolaou smear of cervix with low grade squamous intraepithelial lesion (LGSIL) 10/24/2014 12/25/2019 Pain in joint, ankle and foot 09/27/2014 ASCUS favor dysplasia 09/18/2014 12/26/2015 Visit for gynecologic examination 09/07/2014 12/26/2015 Postmenopausal HRT (hormone replacement therapy) 08/18/2014 12/26/2015 Overview: offered Gait abnormality 07/22/2014 12/26/2015 Weakness of both legs 07/22/2014 12/26/2015 Sprain of ankle, left 06/29/2014 12/26/2015 PCP (pneumocystis jiroveci pneumonia) 06/03/2014 12/26/2015 Acute respiratory failure with hypoxemia 015 12/26/2015 Overview: Increased O2 requirement overnight (2L to 5L) - bronchoscopy with BAL/TBLB tomorrow 8 AM. - NPO from midnight - hold tonight dose of lovenox. Radiation pneumonitis 05/11/2014 12/26/2015 Overview: 40 mg prednisone daily Immunodeficiency with predominant T-cell defect, unspecified 03/11/2014 12/26/2015 Urgency of micturation 03/04/2014 6 Urinary frequency 03/04/2014 12/26/2015 Arm pain, left 07/06/2013 12/26/2015 Back pain without radiation 07/06/201308/2015 Abnormal finding on imaging 07/06/201308/2015 Elevated sed rate 07/06/2013 12/26/2015 Hyperpigmentation of skin 03/31/20132015 Overview: --resolved --bilateral breast tissue and axilla --order mycolog cream --monitor Diarrhea 03/31/2013 12/26/2015 Overview: - c diff pending Mucositis (ulcerative) due to antineoplastic the rapy 03/24/2013 12/26/2015 Overview: --improved --oxy prn --mouth care measures. Reflux 03/23/2013 12/26/2015 Overview: --improved with protonix Elevated LFTs 03/22/2013 12/26/2015 Overview: --increased AST ALT during chemo, resolved. Excess fluid volume 03/21/2013 12/26/2015 Overview: --diuresis as needed --continue to monitor volume status CINV (chemotherapy-induced nausea and vomiting) 03/17/2013 10/13/2015 Overview: --Resolved --Ativan PRN (none used) Peripheral neuropathy 03/16/2013 12/26/2015 Overview: --gabapentin 300mg TID with increased symptoms, bedtime dose of gabapentin increased to 600mg with improvement reported, continue DVT prophylaxis 03/16/2013 12/26/2015 Overview: --platelet count decreasing, d/c heparin SQ --encourage ambulation Insomnia 03/16/2013 12/26/2015 Overview: --ambien PRN at HS, with relief, but with vivid dreams, ambien d/c --restoril at 30mg PRN at HS with relief, continue Chronic chest pain 03/16/2013 12/26/2015 Overview: --now resolved --since Hodgkin lymphoma diagnosis per patient Hospital discharge follow-up 03/16/201308/2015 Overview: --Patient will need to follow up with Dr. Unger after discharge Tachycardia 03/16/2013 12/26/2015 Overview: --patient taking atenolol 100mg BID at home, now BP running lower, decreased atenolol dose to 50mg BID with hypotension. --increase to 75mg BID, d/t tachycardia(HRs >110 while afebrile), HR now controlled, continue --monitor closely Electrolyte and fluid disorders not elsewhere cl assified 02/16/2013 12/26/2015 DISPOSITION AND FOLLOW-UP 10/27/20122015 Overview: 32 yo female from [place], [place]. Family involved with care, at bedside. plan to discharge patient home - will arrange with case management for post op care as needed - follow up in OPD in 7-10 days Post-op pain 10/27/2012 12/26/2015 Overview: currently well controlled with [employer] REPRESENT[employer]IVE. will start PO pain meds today 10/27. tolerating percocet, pain relatively well controlled. Hodgkin's disease with nodular sclerosis 013 12/26/2015 Overview: Oncology history (per Dr. 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 Hodgkin's disease, unspecified 02/05/2012 0 05/11/2014 Vaginal bleeding 12/26/2015 Overview: --likely from thrombocytopenia. No menses in prior 8 months. Scant amount reported on 03/29 and 03/30, now resolved --monitor bleeding by counting pads --should f/u with her [employer] provider after BMT Premature menopause 12/26/2015 Postmenopausal atrophic vaginitis 12/26/2015 Dyspareunia 12/26/2015 documented as of this encounter (statuses as of 08/30/2021) [facility] History of Past illness Narrative* Problem Noted Date Resolved Date Menorrhagia with regular cycle 03/15/2017 1 03/03/2017 Overview: Added automatically from request for surgery [id number] History of pulmonary embolism 04/25/2016 Neoplastic (malignant) related fatigue 7 01/01/2018 Hidradenitis suppurativa 01/17/2016 018 Vitamin D deficiency 06/09/2015 12/26/2015 HyperCKemia 05/06/2015 12/26/2015 Elevated aldolase level 05/06/2015 12/26/19 16 Chronic pain of both knees 05/06/201512/25 Pain in joint, multiple sites 05/06/2015 Myalgia 05/06/2015 12/26/2015 Fatigue 05/06/2015 12/26/2015 Malaise and fatigue 03/24/2015 12/26/2015 Gastroesophageal reflux disease without esophagi tis 02/23/2015 12/26/2015 Laryngitis 02/23/2015 12/26/2015 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 10/28/2014 12/26/2015 Papanicolaou smear of cervix with low grade squamous intraepithelial lesion (LGSIL) 10/24/2014 12/25/2019 Pain in joint, ankle and foot 09/27/2014 ASCUS favor dysplasia 09/18/2014 12/26/2015 Visit for gynecologic examination 09/07/2014 12/26/2015 Postmenopausal HRT (hormone replacement therapy) 08/18/2014 12/26/2015 Overview: offered Gait abnormality 07/22/2014 12/26/2015 Weakness of both legs 07/22/2014 12/26/2015 Sprain of ankle, left 06/29/2014 12/26/2015 PCP (pneumocystis jiroveci pneumonia) 06/03/2014 12/26/2015 Acute respiratory failure with hypoxemia 015 12/26/2015 Overview: Increased O2 requirement overnight (2L to 5L) - bronchoscopy with BAL/TBLB tomorrow 8 AM. - NPO from midnight - hold tonight dose of lovenox. Radiation pneumonitis 05/11/2014 12/26/2015 Overview: 40 mg prednisone daily Immunodeficiency with predominant T-cell defect, unspecified 03/11/2014 12/26/2015 Urgency of micturation 03/04/2014 6 Urinary frequency 03/04/2014 12/26/2015 Arm pain, left 07/06/2013 12/26/2015 Back pain without radiation 07/06/201308/2015 Abnormal finding on imaging 07/06/201308/2015 Elevated sed rate 07/06/2013 12/26/2015 Hyperpigmentation of skin 03/31/20132015 Overview: --resolved --bilateral breast tissue and axilla --order mycolog cream --monitor Diarrhea 03/31/2013 12/26/2015 Overview: - c diff pending Mucositis (ulcerative) due to antineoplastic the rapy 03/24/2013 12/26/2015 Overview: --improved --oxy prn --mouth care measures. Reflux 03/23/2013 12/26/2015 Overview: --improved with protonix Elevated LFTs 03/22/2013 12/26/2015 Overview: --increased AST ALT during chemo, resolved. Excess fluid volume 03/21/2013 12/26/2015 Overview: --diuresis as needed --continue to monitor volume status CINV (chemotherapy-induced nausea and vomiting) 03/17/2013 10/13/2015 Overview: --Resolved --Ativan PRN (none used) Peripheral neuropathy 03/16/2013 12/26/2015 Overview: --gabapentin 300mg TID with increased symptoms, bedtime dose of gabapentin increased to 600mg with improvement reported, continue DVT prophylaxis 03/16/2013 12/26/2015 Overview: --platelet count decreasing, d/c heparin SQ --encourage ambulation Insomnia 03/16/2013 12/26/2015 Overview: --ambien PRN at HS, with relief, but with vivid dreams, ambien d/c --restoril at 30mg PRN at HS with relief, continue Chronic chest pain 03/16/2013 12/26/2015 Overview: --now resolved --since Hodgkin lymphoma diagnosis per patient Hospital discharge follow-up 03/16/201308/2015 Overview: --Patient will need to follow up with Dr. Unger after discharge Tachycardia 03/16/2013 12/26/2015 Overview: --patient taking atenolol 100mg BID at home, now BP running lower, decreased atenolol dose to 50mg BID with hypotension. --increase to 75mg BID, d/t tachycardia(HRs >110 while afebrile), HR now controlled, continue --monitor closely Electrolyte and fluid disorders not elsewhere cl assified 02/16/2013 12/26/2015 DISPOSITION AND FOLLOW-UP 10/27/20122015 Overview: 32 yo female from [place], [place]. Family involved with care, at bedside. plan to discharge patient home - will arrange with case management for post op care as needed - follow up in OPD in 7-10 days Post-op pain 10/27/2012 12/26/2015 Overview: currently well controlled with [employer] REPRESENTATIVE. will start PO pain meds today 10/27. tolerating percocet, pain relatively well controlled. Hodgkin's disease with nodular sclerosis 013 12/26/2015 Overview: Oncology history (per Dr. 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 Hodgkin's disease, unspecified 02/05/2012 0 05/11/2014 Vaginal bleeding 12/26/2015 Overview: --likely from thrombocytopenia. No menses in prior 8 months. Scant amount reported on 03/29 and 03/30, now resolved --monitor bleeding by counting pads --should f/u with her [employer] provider after BMT Premature menopause 12/26/2015 Postmenopausal atrophic vaginitis 12/26/2015 Dyspareunia 12/26/2015 documented as of this encounter (statuses as of 09/04/2021) [facility] History of Past illness Narrative* Problem Noted Date Resolved Date Menorrhagia with regular cycle 03/15/2017 1 03/03/2017 Overview: Added automatically from request for surgery [id number] History of pulmonary embolism 04/25/2016 Neoplastic (malignant) related fatigue 7 01/01/2018 Hidradenitis suppurativa 01/17/2016 018 Vitamin D deficiency 06/09/2015 12/26/2015 HyperCKemia 05/06/2015 12/26/2015 Elevated aldolase level 05/06/2015 12/26/19 16 Chronic pain of both knees 05/06/201512/25 Pain in joint, multiple sites 05/06/2015 Myalgia 05/06/2015 12/26/2015 Fatigue 05/06/2015 12/26/2015 Malaise and fatigue 03/24/2015 12/26/2015 Gastroesophageal reflux disease without esophagi tis 02/23/2015 12/26/2015 Laryngitis 02/23/2015 12/26/2015 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 10/28/2014 12/26/2015 Papanicolaou smear of cervix with low grade squamous intraepithelial lesion (LGSIL) 10/24/2014 12/25/2019 Pain in joint, ankle and foot 09/27/2014 ASCUS favor dysplasia 09/18/2014 12/26/2015 Visit for gynecologic examination 09/07/2014 12/26/2015 Postmenopausal HRT (hormone replacement therapy) 08/18/2014 12/26/2015 Overview: offered Gait abnormality 07/22/2014 12/26/2015 Weakness of both legs 07/22/2014 12/26/2015 Sprain of ankle, left 06/29/2014 12/26/2015 PCP (pneumocystis jiroveci pneumonia) 06/03/2014 12/26/2015 Acute respiratory failure with hypoxemia 015 12/26/2015 Overview: Increased O2 requirement overnight (2L to 5L) - bronchoscopy with BAL/TBLB tomorrow 8 AM. - NPO from midnight - hold tonight dose of lovenox. Radiation pneumonitis 05/11/2014 12/26/2015 Overview: 40 mg prednisone daily Immunodeficiency with predominant T-cell defect, unspecified 03/11/2014 12/26/2015 Urgency of micturation 03/04/2014 6 Urinary frequency 03/04/2014 12/26/2015 Arm pain, left 07/06/2013 12/26/2015 Back pain without radiation 07/06/201308/2015 Abnormal finding on imaging 07/06/201308/2015 Elevated sed rate 07/06/2013 12/26/2015 Hyperpigmentation of skin 03/31/20132015 Overview: --resolved --bilateral breast tissue and axilla --order mycolog cream --monitor Diarrhea 03/31/2013 12/26/2015 Overview: - c diff pending Mucositis (ulcerative) due to antineoplastic the rapy 03/24/2013 12/26/2015 Overview: --improved --oxy prn --mouth care measures. Reflux 03/23/2013 12/26/2015 Overview: --improved with protonix Elevated LFTs 03/22/2013 12/26/2015 Overview: --increased AST ALT during chemo, resolved. Excess fluid volume 03/21/2013 12/26/2015 Overview: --diuresis as needed --continue to monitor volume status CINV (chemotherapy-induced nausea and vomiting) 03/17/2013 10/13/2015 Overview: --Resolved --Ativan PRN (none used) Peripheral neuropathy 03/16/2013 12/26/2015 Overview: --gabapentin 300mg TID with increased symptoms, bedtime dose of gabapentin increased to 600mg with improvement reported, continue DVT prophylaxis 03/16/2013 12/26/2015 Overview: --platelet count decreasing, d/c heparin SQ --encourage ambulation Insomnia 03/16/2013 12/26/2015 Overview: --ambien PRN at HS, with relief, but with vivid dreams, ambien d/c --restoril at 30mg PRN at HS with relief, continue Chronic chest pain 03/16/2013 12/26/2015 Overview: --now resolved --since Hodgkin lymphoma diagnosis per patient Hospital discharge follow-up 03/16/201308/2015 Overview: --Patient will need to follow up with Dr. Unger after discharge Tachycardia 03/16/2013 12/26/2015 Overview: --patient taking atenolol 100mg BID at home, now BP running lower, decreased atenolol dose to 50mg BID with hypotension. --increase to 75mg BID, d/t tachycardia(HRs >110 while afebrile), HR now controlled, continue --monitor closely Electrolyte and fluid disorders not elsewhere cl assified 02/16/2013 12/26/2015 DISPOSITION AND FOLLOW-UP 10/27/20122015 Overview: 32 yo female from [place], [place]. Family involved with care, at bedside. plan to discharge patient home - will arrange with case management for post op care as needed - follow up in OPD in 7-10 days Post-op pain 10/27/2012 12/26/2015 Overview: currently well controlled with [employer] REPRESENTATIVE. will start PO pain meds today 10/27. tolerating percocet, pain relatively well controlled. Hodgkin's disease with nodular sclerosis 013 12/26/2015 Overview: Oncology history (per Dr. 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 Hodgkin's disease, unspecified 02/05/2012 0 05/11/2014 Vaginal bleeding 12/26/2015 Overview: --likely from thrombocytopenia. No menses in prior 8 months. Scant amount reported on 03/29 and 03/30, now resolved --monitor bleeding by counting pads --should f/u with her [employer] provider after BMT Premature menopause 12/26/2015 Postmenopausal atrophic vaginitis 12/26/2015 Dyspareunia 12/26/2015 documented as of this encounter (statuses as of 09/04/2021) [facility]01-[facility]-2018 History of Past illness Narrative* Problem Noted Date Resolved Date Menorrhagia with regular cycle 03/15/2017 1 03/03/2017 Overview: Added automatically from request for surgery [id number] History of pulmonary embolism 04/25/2016 Neoplastic (malignant) related fatigue 7 01/01/2018 Hidradenitis suppurativa 01/17/2016 018 Vitamin D deficiency 06/09/2015 12/26/2015 HyperCKemia 05/06/2015 12/26/2015 Elevated aldolase level 05/06/2015 12/26/19 16 Chronic pain of both knees 05/06/201512/25 Pain in joint, multiple sites 05/06/2015 Myalgia 05/06/2015 12/26/2015 Fatigue 05/06/2015 12/26/2015 Malaise and fatigue 03/24/2015 12/26/2015 Gastroesophageal reflux disease without esophagi tis 02/23/2015 12/26/2015 Laryngitis 02/23/2015 12/26/2015 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 10/28/2014 12/26/2015 Papanicolaou smear of cervix with low grade squamous intraepithelial lesion (LGSIL) 10/24/2014 12/25/2019 Pain in joint, ankle and foot 09/27/2014 ASCUS favor dysplasia 09/18/2014 12/26/2015 Visit for gynecologic examination 09/07/2014 12/26/2015 Postmenopausal HRT (hormone replacement therapy) 08/18/2014 12/26/2015 Overview: offered Gait abnormality 07/22/2014 12/26/2015 Weakness of both legs 07/22/2014 12/26/2015 Sprain of ankle, left 06/29/2014 12/26/2015 PCP (pneumocystis jiroveci pneumonia) 06/03/2014 12/26/2015 Acute respiratory failure with hypoxemia 015 12/26/2015 Overview: Increased O2 requirement overnight (2L to 5L) - bronchoscopy with BAL/TBLB tomorrow 8 AM. - NPO from midnight - hold tonight dose of lovenox. Radiation pneumonitis 05/11/2014 12/26/2015 Overview: 40 mg prednisone daily Immunodeficiency with predominant T-cell defect, unspecified 03/11/2014 12/26/2015 Urgency of micturation 03/04/2014 6 Urinary frequency 03/04/2014 12/26/2015 Arm pain, left 07/06/2013 12/26/2015 Back pain without radiation 07/06/201308/2015 Abnormal finding on imaging 07/06/201308/2015 Elevated sed rate 07/06/2013 12/26/2015 Hyperpigmentation of skin 03/31/20132015 Overview: --resolved --bilateral breast tissue and axilla --order mycolog cream --monitor Diarrhea 03/31/2013 12/26/2015 Overview: - c diff pending Mucositis (ulcerative) due to antineoplastic the rapy 03/24/2013 12/26/2015 Overview: --improved --oxy prn --mouth care measures. Reflux 03/23/2013 12/26/2015 Overview: --improved with protonix Elevated LFTs 03/22/2013 12/26/2015 Overview: --increased AST ALT during chemo, resolved. Excess fluid volume 03/21/2013 12/26/2015 Overview: --diuresis as needed --continue to monitor volume status CINV (chemotherapy-induced nausea and vomiting) 03/17/2013 10/13/2015 Overview: --Resolved --Ativan PRN (none used) Peripheral neuropathy 03/16/2013 12/26/2015 Overview: --gabapentin 300mg TID with increased symptoms, bedtime dose of gabapentin increased to 600mg with improvement reported, continue DVT prophylaxis 03/16/2013 12/26/2015 Overview: --platelet count decreasing, d/c heparin SQ --encourage ambulation Insomnia 03/16/2013 12/26/2015 Overview: --ambien PRN at HS, with relief, but with vivid dreams, ambien d/c --restoril at 30mg PRN at HS with relief, continue Chronic chest pain 03/16/2013 12/26/2015 Overview: --now resolved --since Hodgkin lymphoma diagnosis per patient Hospital discharge follow-up 03/16/201308/2015 Overview: --Patient will need to follow up with Dr. Unger after discharge Tachycardia 03/16/2013 12/26/2015 Overview: --patient taking atenolol 100mg BID at home, now BP running lower, decreased atenolol dose to 50mg BID with hypotension. --increase to 75mg BID, d/t tachycardia(HRs >110 while afebrile), HR now controlled, continue --monitor closely Electrolyte and fluid disorders not elsewhere cl assified 02/16/2013 12/26/2015 DISPOSITION AND FOLLOW-UP 10/27/20122015 Overview: 32 yo female from [place], [place]. Family involved with care, at bedside. plan to discharge patient home - will arrange with case management for post op care as needed - follow up in OPD in 7-10 days Post-op pain 10/27/2012 12/26/2015 Overview: currently well controlled with [employer] REPRESENT[employer]IVE. will start PO pain meds today 10/27. tolerating percocet, pain relatively well controlled. Hodgkin's disease with nodular sclerosis 013 12/26/2015 Overview: Oncology history (per Dr. 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 Hodgkin's disease, unspecified 02/05/2012 0 05/11/2014 Vaginal bleeding 12/26/2015 Overview: --likely from thrombocytopenia. No menses in prior 8 months. Scant amount reported on 03/29 and 03/30, now resolved --monitor bleeding by counting pads --should f/u with her [employer] provider after BMT Premature menopause 12/26/2015 Postmenopausal atrophic vaginitis 12/26/2015 Dyspareunia 12/26/2015 documented as of this encounter (statuses as of 09/05/2021) [facility] History of Past illness Narrative* Problem Noted Date Resolved Date Menorrhagia with regular cycle 03/15/2017 1 03/03/2017 Overview: Added automatically from request for surgery [id number] History of pulmonary embolism 04/25/2016 Neoplastic (malignant) related fatigue 7 01/01/2018 Hidradenitis suppurativa 01/17/2016 018 Vitamin D deficiency 06/09/2015 12/26/2015 HyperCKemia 05/06/2015 12/26/2015 Elevated aldolase level 05/06/2015 12/26/19 16 Chronic pain of both knees 05/06/201512/25 Pain in joint, multiple sites 05/06/2015 Myalgia 05/06/2015 12/26/2015 Fatigue 05/06/2015 12/26/2015 Malaise and fatigue 03/24/2015 12/26/2015 Gastroesophageal reflux disease without esophagi tis 02/23/2015 12/26/2015 Laryngitis 02/23/2015 12/26/2015 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 10/28/2014 12/26/2015 Papanicolaou smear of cervix with low grade squamous intraepithelial lesion (LGSIL) 10/24/2014 12/25/2019 Pain in joint, ankle and foot 09/27/2014 ASCUS favor dysplasia 09/18/2014 12/26/2015 Visit for gynecologic examination 09/07/2014 12/26/2015 Postmenopausal HRT (hormone replacement therapy) 08/18/2014 12/26/2015 Overview: offered Gait abnormality 07/22/2014 12/26/2015 Weakness of both legs 07/22/2014 12/26/2015 Sprain of ankle, left 06/29/2014 12/26/2015 PCP (pneumocystis jiroveci pneumonia) 06/03/2014 12/26/2015 Acute respiratory failure with hypoxemia 015 12/26/2015 Overview: Increased O2 requirement overnight (2L to 5L) - bronchoscopy with BAL/TBLB tomorrow 8 AM. - NPO from midnight - hold tonight dose of lovenox. Radiation pneumonitis 05/11/2014 12/26/2015 Overview: 40 mg prednisone daily Immunodeficiency with predominant T-cell defect, unspecified 03/11/2014 12/26/2015 Urgency of micturation 03/04/2014 6 Urinary frequency 03/04/2014 12/26/2015 Arm pain, left 07/06/2013 12/26/2015 Back pain without radiation 07/06/201308/2015 Abnormal finding on imaging 07/06/201308/2015 Elevated sed rate 07/06/2013 12/26/2015 Hyperpigmentation of skin 03/31/20132015 Overview: --resolved --bilateral breast tissue and axilla --order mycolog cream --monitor Diarrhea 03/31/2013 12/26/2015 Overview: - c diff pending Mucositis (ulcerative) due to antineoplastic the rapy 03/24/2013 12/26/2015 Overview: --improved --oxy prn --mouth care measures. Reflux 03/23/2013 12/26/2015 Overview: --improved with protonix Elevated LFTs 03/22/2013 12/26/2015 Overview: --increased AST ALT during chemo, resolved. Excess fluid volume 03/21/2013 12/26/2015 Overview: --diuresis as needed --continue to monitor volume status CINV (chemotherapy-induced nausea and vomiting) 03/17/2013 10/13/2015 Overview: --Resolved --Ativan PRN (none used) Peripheral neuropathy 03/16/2013 12/26/2015 Overview: --gabapentin 300mg TID with increased symptoms, bedtime dose of gabapentin increased to 600mg with improvement reported, continue DVT prophylaxis 03/16/2013 12/26/2015 Overview: --platelet count decreasing, d/c heparin SQ --encourage ambulation Insomnia 03/16/2013 12/26/2015 Overview: --ambien PRN at HS, with relief, but with vivid dreams, ambien d/c --restoril at 30mg PRN at HS with relief, continue Chronic chest pain 03/16/2013 12/26/2015 Overview: --now resolved --since Hodgkin lymphoma diagnosis per patient Hospital discharge follow-up 03/16/201308/2015 Overview: --Patient will need to follow up with Dr. Unger after discharge Tachycardia 03/16/2013 12/26/2015 Overview: --patient taking atenolol 100mg BID at home, now BP running lower, decreased atenolol dose to 50mg BID with hypotension. --increase to 75mg BID, d/t tachycardia(HRs >110 while afebrile), HR now controlled, continue --monitor closely Electrolyte and fluid disorders not elsewhere cl assified 02/16/2013 12/26/2015 DISPOSITION AND FOLLOW-UP 10/27/20122015 Overview: 32 yo female from [place], [place]. Family involved with care, at bedside. plan to discharge patient home - will arrange with case management for post op care as needed - follow up in OPD in 7-10 days Post-op pain 10/27/2012 12/26/2015 Overview: currently well controlled with [employer] REPRESENT[employer]IVE. will start PO pain meds today 10/27. tolerating percocet, pain relatively well controlled. Hodgkin's disease with nodular sclerosis 013 12/26/2015 Overview: Oncology history (per Dr. 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 Hodgkin's disease, unspecified 02/05/2012 0 05/11/2014 Vaginal bleeding 12/26/2015 Overview: --likely from thrombocytopenia. No menses in prior 8 months. Scant amount reported on 03/29 and 03/30, now resolved --monitor bleeding by counting pads --should f/u with her [employer] provider after BMT Premature menopause 12/26/2015 Postmenopausal atrophic vaginitis 12/26/2015 Dyspareunia 12/26/2015 documented as of this encounter (statuses as of 09/06/2021) [facility] History of Past illness Narrative* Problem Noted Date Resolved Date Menorrhagia with regular cycle 03/15/2017 1 03/03/2017 Overview: Added automatically from request for surgery [id number] History of pulmonary embolism 04/25/2016 Neoplastic (malignant) related fatigue 7 01/01/2018 Hidradenitis suppurativa 01/17/2016 018 Vitamin D deficiency 06/09/2015 12/26/2015 HyperCKemia 05/06/2015 12/26/2015 Elevated aldolase level 05/06/2015 12/26/19 16 Chronic pain of both knees 05/06/201512/25 Pain in joint, multiple sites 05/06/2015 Myalgia 05/06/2015 12/26/2015 Fatigue 05/06/2015 12/26/2015 Malaise and fatigue 03/24/2015 12/26/2015 Gastroesophageal reflux disease without esophagi tis 02/23/2015 12/26/2015 Laryngitis 02/23/2015 12/26/2015 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 10/28/2014 12/26/2015 Papanicolaou smear of cervix with low grade squamous intraepithelial lesion (LGSIL) 10/24/2014 12/25/2019 Pain in joint, ankle and foot 09/27/2014 ASCUS favor dysplasia 09/18/2014 12/26/2015 Visit for gynecologic examination 09/07/2014 12/26/2015 Postmenopausal HRT (hormone replacement therapy) 08/18/2014 12/26/2015 Overview: offered Gait abnormality 07/22/2014 12/26/2015 Weakness of both legs 07/22/2014 12/26/2015 Sprain of ankle, left 06/29/2014 12/26/2015 PCP (pneumocystis jiroveci pneumonia) 06/03/2014 12/26/2015 Acute respiratory failure with hypoxemia 015 12/26/2015 Overview: Increased O2 requirement overnight (2L to 5L) - bronchoscopy with BAL/TBLB tomorrow 8 AM. - NPO from midnight - hold tonight dose of lovenox. Radiation pneumonitis 05/11/2014 12/26/2015 Overview: 40 mg prednisone daily Immunodeficiency with predominant T-cell defect, unspecified 03/11/2014 12/26/2015 Urgency of micturation 03/04/2014 6 Urinary frequency 03/04/2014 12/26/2015 Arm pain, left 07/06/2013 12/26/2015 Back pain without radiation 07/06/201308/2015 Abnormal finding on imaging 07/06/201308/2015 Elevated sed rate 07/06/2013 12/26/2015 Hyperpigmentation of skin 03/31/20132015 Overview: --resolved --bilateral breast tissue and axilla --order mycolog cream --monitor Diarrhea 03/31/2013 12/26/2015 Overview: - c diff pending Mucositis (ulcerative) due to antineoplastic the rapy 03/24/2013 12/26/2015 Overview: --improved --oxy prn --mouth care measures. Reflux 03/23/2013 12/26/2015 Overview: --improved with protonix Elevated LFTs 03/22/2013 12/26/2015 Overview: --increased AST ALT during chemo, resolved. Excess fluid volume 03/21/2013 12/26/2015 Overview: --diuresis as needed --continue to monitor volume status CINV (chemotherapy-induced nausea and vomiting) 03/17/2013 10/13/2015 Overview: --Resolved --Ativan PRN (none used) Peripheral neuropathy 03/16/2013 12/26/2015 Overview: --gabapentin 300mg TID with increased symptoms, bedtime dose of gabapentin increased to 600mg with improvement reported, continue DVT prophylaxis 03/16/2013 12/26/2015 Overview: --platelet count decreasing, d/c heparin SQ --encourage ambulation Insomnia 03/16/2013 12/26/2015 Overview: --ambien PRN at HS, with relief, but with vivid dreams, ambien d/c --restoril at 30mg PRN at HS with relief, continue Chronic chest pain 03/16/2013 12/26/2015 Overview: --now resolved --since Hodgkin lymphoma diagnosis per patient Hospital discharge follow-up 03/16/201308/2015 Overview: --Patient will need to follow up with Dr. Unger after discharge Tachycardia 03/16/2013 12/26/2015 Overview: --patient taking atenolol 100mg BID at home, now BP running lower, decreased atenolol dose to 50mg BID with hypotension. --increase to 75mg BID, d/t tachycardia(HRs >110 while afebrile), HR now controlled, continue --monitor closely Electrolyte and fluid disorders not elsewhere cl assified 02/16/2013 12/26/2015 DISPOSITION AND FOLLOW-UP 10/27/20122015 Overview: 32 yo female from [place], [place]. Family involved with care, at bedside. plan to discharge patient home - will arrange with case management for post op care as needed - follow up in OPD in 7-10 days Post-op pain 10/27/2012 12/26/2015 Overview: currently well controlled with [employer] REPRESENT[employer]IVE. will start PO pain meds today 10/27. tolerating percocet, pain relatively well controlled. Hodgkin's disease with nodular sclerosis 013 12/26/2015 Overview: Oncology history (per Dr. 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 Hodgkin's disease, unspecified 02/05/2012 0 05/11/2014 Vaginal bleeding 12/26/2015 Overview: --likely from thrombocytopenia. No menses in prior 8 months. Scant amount reported on 03/29 and 03/30, now resolved --monitor bleeding by counting pads --should f/u with her [employer] provider after BMT Premature menopause 12/26/2015 Postmenopausal atrophic vaginitis 12/26/2015 Dyspareunia 12/26/2015 documented as of this encounter (statuses as of 09/11/2021) [facility] History of Past illness Narrative* Problem Noted Date Resolved Date Menorrhagia with regular cycle 03/15/2017 1 03/03/2017 Overview: Added automatically from request for surgery [id number] History of pulmonary embolism 04/25/2016 Neoplastic (malignant) related fatigue 7 01/01/2018 Hidradenitis suppurativa 01/17/2016 018 Vitamin D deficiency 06/09/2015 12/26/2015 HyperCKemia 05/06/2015 12/26/2015 Elevated aldolase level 05/06/2015 12/26/19 16 Chronic pain of both knees 05/06/201512/25 Pain in joint, multiple sites 05/06/2015 Myalgia 05/06/2015 12/26/2015 Fatigue 05/06/2015 12/26/2015 Malaise and fatigue 03/24/2015 12/26/2015 Gastroesophageal reflux disease without esophagi tis 02/23/2015 12/26/2015 Laryngitis 02/23/2015 12/26/2015 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 10/28/2014 12/26/2015 Papanicolaou smear of cervix with low grade squamous intraepithelial lesion (LGSIL) 10/24/2014 12/25/2019 Pain in joint, ankle and foot 09/27/2014 ASCUS favor dysplasia 09/18/2014 12/26/2015 Visit for gynecologic examination 09/07/2014 12/26/2015 Postmenopausal HRT (hormone replacement therapy) 08/18/2014 12/26/2015 Overview: offered Gait abnormality 07/22/2014 12/26/2015 Weakness of both legs 07/22/2014 12/26/2015 Sprain of ankle, left 06/29/2014 12/26/2015 PCP (pneumocystis jiroveci pneumonia) 06/03/2014 12/26/2015 Acute respiratory failure with hypoxemia 015 12/26/2015 Overview: Increased O2 requirement overnight (2L to 5L) - bronchoscopy with BAL/TBLB tomorrow 8 AM. - NPO from midnight - hold tonight dose of lovenox. Radiation pneumonitis 05/11/2014 12/26/2015 Overview: 40 mg prednisone daily Immunodeficiency with predominant T-cell defect, unspecified 03/11/2014 12/26/2015 Urgency of micturation 03/04/2014 6 Urinary frequency 03/04/2014 12/26/2015 Arm pain, left 07/06/2013 12/26/2015 Back pain without radiation 07/06/201308/2015 Abnormal finding on imaging 07/06/201308/2015 Elevated sed rate 07/06/2013 12/26/2015 Hyperpigmentation of skin 03/31/20132015 Overview: --resolved --bilateral breast tissue and axilla --order mycolog cream --monitor Diarrhea 03/31/2013 12/26/2015 Overview: - c diff pending Mucositis (ulcerative) due to antineoplastic the rapy 03/24/2013 12/26/2015 Overview: --improved --oxy prn --mouth care measures. Reflux 03/23/2013 12/26/2015 Overview: --improved with protonix Elevated LFTs 03/22/2013 12/26/2015 Overview: --increased AST ALT during chemo, resolved. Excess fluid volume 03/21/2013 12/26/2015 Overview: --diuresis as needed --continue to monitor volume status CINV (chemotherapy-induced nausea and vomiting) 03/17/2013 10/13/2015 Overview: --Resolved --Ativan PRN (none used) Peripheral neuropathy 03/16/2013 12/26/2015 Overview: --gabapentin 300mg TID with increased symptoms, bedtime dose of gabapentin increased to 600mg with improvement reported, continue DVT prophylaxis 03/16/2013 12/26/2015 Overview: --platelet count decreasing, d/c heparin SQ --encourage ambulation Insomnia 03/16/2013 12/26/2015 Overview: --ambien PRN at HS, with relief, but with vivid dreams, ambien d/c --restoril at 30mg PRN at HS with relief, continue Chronic chest pain 03/16/2013 12/26/2015 Overview: --now resolved --since Hodgkin lymphoma diagnosis per patient Hospital discharge follow-up 03/16/201308/2015 Overview: --Patient will need to follow up with Dr. Unger after discharge Tachycardia 03/16/2013 12/26/2015 Overview: --patient taking atenolol 100mg BID at home, now BP running lower, decreased atenolol dose to 50mg BID with hypotension. --increase to 75mg BID, d/t tachycardia(HRs >110 while afebrile), HR now controlled, continue --monitor closely Electrolyte and fluid disorders not elsewhere cl assified 02/16/2013 12/26/2015 DISPOSITION AND FOLLOW-UP 10/27/20122015 Overview: 32 yo female from [place], [place]. Family involved with care, at bedside. plan to discharge patient home - will arrange with case management for post op care as needed - follow up in OPD in 7-10 days Post-op pain 10/27/2012 12/26/2015 Overview: currently well controlled with [employer] REPRESENTATIVE. will start PO pain meds today 10/27. tolerating percocet, pain relatively well controlled. Hodgkin's disease with nodular sclerosis 013 12/26/2015 Overview: Oncology history (per Dr. 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 Hodgkin's disease, unspecified 02/05/2012 0 05/11/2014 Vaginal bleeding 12/26/2015 Overview: --likely from thrombocytopenia. No menses in prior 8 months. Scant amount reported on 03/29 and 03/30, now resolved --monitor bleeding by counting pads --should f/u with her [employer] provider after BMT Premature menopause 12/26/2015 Postmenopausal atrophic vaginitis 12/26/2015 Dyspareunia 12/26/2015 documented as of this encounter (statuses as of 09/22/2021) [facility] History of Past illness Narrative* Problem Noted Date Resolved Date Menorrhagia with regular cycle 03/15/2017 1 03/03/2017 Overview: Added automatically from request for surgery [id number] History of pulmonary embolism 04/25/2016 Neoplastic (malignant) related fatigue 7 01/01/2018 Hidradenitis suppurativa 01/17/2016 018 Vitamin D deficiency 06/09/2015 12/26/2015 HyperCKemia 05/06/2015 12/26/2015 Elevated aldolase level 05/06/2015 12/26/19 16 Chronic pain of both knees 05/06/201512/25 Pain in joint, multiple sites 05/06/2015 Myalgia 05/06/2015 12/26/2015 Fatigue 05/06/2015 12/26/2015 Malaise and fatigue 03/24/2015 12/26/2015 Gastroesophageal reflux disease without esophagi tis 02/23/2015 12/26/2015 Laryngitis 02/23/2015 12/26/2015 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 10/28/2014 12/26/2015 Papanicolaou smear of cervix with low grade squamous intraepithelial lesion (LGSIL) 10/24/2014 12/25/2019 Pain in joint, ankle and foot 09/27/2014 ASCUS favor dysplasia 09/18/2014 12/26/2015 Visit for gynecologic examination 09/07/2014 12/26/2015 Postmenopausal HRT (hormone replacement therapy) 08/18/2014 12/26/2015 Overview: offered Gait abnormality 07/22/2014 12/26/2015 Weakness of both legs 07/22/2014 12/26/2015 Sprain of ankle, left 06/29/2014 12/26/2015 PCP (pneumocystis jiroveci pneumonia) 06/03/2014 12/26/2015 Acute respiratory failure with hypoxemia 015 12/26/2015 Overview: Increased O2 requirement overnight (2L to 5L) - bronchoscopy with BAL/TBLB tomorrow 8 AM. - NPO from midnight - hold tonight dose of lovenox. Radiation pneumonitis 05/11/2014 12/26/2015 Overview: 40 mg prednisone daily Immunodeficiency with predominant T-cell defect, unspecified 03/11/2014 12/26/2015 Urgency of micturation 03/04/2014 6 Urinary frequency 03/04/2014 12/26/2015 Arm pain, left 07/06/2013 12/26/2015 Back pain without radiation 07/06/201308/2015 Abnormal finding on imaging 07/06/201308/2015 Elevated sed rate 07/06/2013 12/26/2015 Hyperpigmentation of skin 03/31/20132015 Overview: --resolved --bilateral breast tissue and axilla --order mycolog cream --monitor Diarrhea 03/31/2013 12/26/2015 Overview: - c diff pending Mucositis (ulcerative) due to antineoplastic the rapy 03/24/2013 12/26/2015 Overview: --improved --oxy prn --mouth care measures. Reflux 03/23/2013 12/26/2015 Overview: --improved with protonix Elevated LFTs 03/22/2013 12/26/2015 Overview: --increased AST ALT during chemo, resolved. Excess fluid volume 03/21/2013 12/26/2015 Overview: --diuresis as needed --continue to monitor volume status CINV (chemotherapy-induced nausea and vomiting) 03/17/2013 10/13/2015 Overview: --Resolved --Ativan PRN (none used) Peripheral neuropathy 03/16/2013 12/26/2015 Overview: --gabapentin 300mg TID with increased symptoms, bedtime dose of gabapentin increased to 600mg with improvement reported, continue DVT prophylaxis 03/16/2013 12/26/2015 Overview: --platelet count decreasing, d/c heparin SQ --encourage ambulation Insomnia 03/16/2013 12/26/2015 Overview: --ambien PRN at HS, with relief, but with vivid dreams, ambien d/c --restoril at 30mg PRN at HS with relief, continue Chronic chest pain 03/16/2013 12/26/2015 Overview: --now resolved --since Hodgkin lymphoma diagnosis per patient Hospital discharge follow-up 03/16/201308/2015 Overview: --Patient will need to follow up with Dr. Unger after discharge Tachycardia 03/16/2013 12/26/2015 Overview: --patient taking atenolol 100mg BID at home, now BP running lower, decreased atenolol dose to 50mg BID with hypotension. --increase to 75mg BID, d/t tachycardia(HRs >110 while afebrile), HR now controlled, continue --monitor closely Electrolyte and fluid disorders not elsewhere cl assified 02/16/2013 12/26/2015 DISPOSITION AND FOLLOW-UP 10/27/20122015 Overview: 32 yo female from [place], [place]. Family involved with care, at bedside. plan to discharge patient home - will arrange with case management for post op care as needed - follow up in OPD in 7-10 days Post-op pain 10/27/2012 12/26/2015 Overview: currently well controlled with [employer] REPRESENTATIVE. will start PO pain meds today 10/27. tolerating percocet, pain relatively well controlled. Hodgkin's disease with nodular sclerosis 013 12/26/2015 Overview: Oncology history (per Dr. 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 Hodgkin's disease, unspecified 02/05/2012 0 05/11/2014 Vaginal bleeding 12/26/2015 Overview: --likely from thrombocytopenia. No menses in prior 8 months. Scant amount reported on 03/29 and 03/30, now resolved --monitor bleeding by counting pads --should f/u with her [employer] [employer] provider after BMT Premature menopause 12/26/2015 Postmenopausal atrophic vaginitis 12/26/2015 Dyspareunia 12/26/2015 documented as of this encounter (statuses as of 09/22/2021) [facility] History of Past illness Narrative* Problem Noted Date Resolved Date Menorrhagia with regular cycle 03/15/2017 1 03/03/2017 Overview: Added automatically from request for surgery [id number] History of pulmonary embolism 04/25/2016 Neoplastic (malignant) related fatigue 7 01/01/2018 Hidradenitis suppurativa 01/17/2016 018 Vitamin D deficiency 06/09/2015 12/26/2015 HyperCKemia 05/06/2015 12/26/2015 Elevated aldolase level 05/06/2015 12/26/19 16 Chronic pain of both knees 05/06/201512/25 Pain in joint, multiple sites 05/06/2015 Myalgia 05/06/2015 12/26/2015 Fatigue 05/06/2015 12/26/2015 Malaise and fatigue 03/24/2015 12/26/2015 Gastroesophageal reflux disease without esophagi tis 02/23/2015 12/26/2015 Laryngitis 02/23/2015 12/26/2015 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 10/28/2014 12/26/2015 Papanicolaou smear of cervix with low grade squamous intraepithelial lesion (LGSIL) 10/24/2014 12/25/2019 Pain in joint, ankle and foot 09/27/2014 ASCUS favor dysplasia 09/18/2014 12/26/2015 Visit for gynecologic examination 09/07/2014 12/26/2015 Postmenopausal HRT (hormone replacement therapy) 08/18/2014 12/26/2015 Overview: offered Gait abnormality 07/22/2014 12/26/2015 Weakness of both legs 07/22/2014 12/26/2015 Sprain of ankle, left 06/29/2014 12/26/2015 PCP (pneumocystis jiroveci pneumonia) 06/03/2014 12/26/2015 Acute respiratory failure with hypoxemia 015 12/26/2015 Overview: Increased O2 requirement overnight (2L to 5L) - bronchoscopy with BAL/TBLB tomorrow 8 AM. - NPO from midnight - hold tonight dose of lovenox. Radiation pneumonitis 05/11/2014 12/26/2015 Overview: 40 mg prednisone daily Immunodeficiency with predominant T-cell defect, unspecified 03/11/2014 12/26/2015 Urgency of micturation 03/04/2014 6 Urinary frequency 03/04/2014 12/26/2015 Arm pain, left 07/06/2013 12/26/2015 Back pain without radiation 07/06/201308/2015 Abnormal finding on imaging 07/06/201308/2015 Elevated sed rate 07/06/2013 12/26/2015 Hyperpigmentation of skin 03/31/20132015 Overview: --resolved --bilateral breast tissue and axilla --order mycolog cream --monitor Diarrhea 03/31/2013 12/26/2015 Overview: - c diff pending Mucositis (ulcerative) due to antineoplastic the rapy 03/24/2013 12/26/2015 Overview: --improved --oxy prn --mouth care measures. Reflux 03/23/2013 12/26/2015 Overview: --improved with protonix Elevated LFTs 03/22/2013 12/26/2015 Overview: --increased AST ALT during chemo, resolved. Excess fluid volume 03/21/2013 12/26/2015 Overview: --diuresis as needed --continue to monitor volume status CINV (chemotherapy-induced nausea and vomiting) 03/17/2013 10/13/2015 Overview: --Resolved --Ativan PRN (none used) Peripheral neuropathy 03/16/2013 12/26/2015 Overview: --gabapentin 300mg TID with increased symptoms, bedtime dose of gabapentin increased to 600mg with improvement reported, continue DVT prophylaxis 03/16/2013 12/26/2015 Overview: --platelet count decreasing, d/c heparin SQ --encourage ambulation Insomnia 03/16/2013 12/26/2015 Overview: --ambien PRN at HS, with relief, but with vivid dreams, ambien d/c --restoril at 30mg PRN at HS with relief, continue Chronic chest pain 03/16/2013 12/26/2015 Overview: --now resolved --since Hodgkin lymphoma diagnosis per patient Hospital discharge follow-up 03/16/201308/2015 Overview: --Patient will need to follow up with Dr. Unger after discharge Tachycardia 03/16/2013 12/26/2015 Overview: --patient taking atenolol 100mg BID at home, now BP running lower, decreased atenolol dose to 50mg BID with hypotension. --increase to 75mg BID, d/t tachycardia(HRs >110 while afebrile), HR now controlled, continue --monitor closely Electrolyte and fluid disorders not elsewhere cl assified 02/16/2013 12/26/2015 DISPOSITION AND FOLLOW-UP 10/27/20122015 Overview: 32 yo female from [place], [place]. Family involved with care, at bedside. plan to discharge patient home - will arrange with case management for post op care as needed - follow up in OPD in 7-10 days Post-op pain 10/27/2012 12/26/2015 Overview: currently well controlled with [employer] REPRESENT[employer]IVE. will start PO pain meds today 10/27. tolerating percocet, pain relatively well controlled. Hodgkin's disease with nodular sclerosis 013 12/26/2015 Overview: Oncology history (per Dr. 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 Hodgkin's disease, unspecified 02/05/2012 0 05/11/2014 Vaginal bleeding 12/26/2015 Overview: --likely from thrombocytopenia. No menses in prior 8 months. Scant amount reported on 03/29 and 03/30, now resolved --monitor bleeding by counting pads --should f/u with her [employer] provider after BMT Premature menopause 12/26/2015 Postmenopausal atrophic vaginitis 12/26/2015 Dyspareunia 12/26/2015 documented as of this encounter (statuses as of 10/02/2021) [facility] History of Past illness Narrative* Problem Noted Date Resolved Date Menorrhagia with regular cycle 03/15/2017 1 03/03/2017 Overview: Added automatically from request for surgery [id number] History of pulmonary embolism 04/25/2016 Neoplastic (malignant) related fatigue 7 01/01/2018 Hidradenitis suppurativa 01/17/2016 018 Vitamin D deficiency 06/09/2015 12/26/2015 HyperCKemia 05/06/2015 12/26/2015 Elevated aldolase level 05/06/2015 12/26/19 16 Chronic pain of both knees 05/06/201512/25 Pain in joint, multiple sites 05/06/2015 Myalgia 05/06/2015 12/26/2015 Fatigue 05/06/2015 12/26/2015 Malaise and fatigue 03/24/2015 12/26/2015 Gastroesophageal reflux disease without esophagi tis 02/23/2015 12/26/2015 Laryngitis 02/23/2015 12/26/2015 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 10/28/2014 12/26/2015 Papanicolaou smear of cervix with low grade squamous intraepithelial lesion (LGSIL) 10/24/2014 12/25/2019 Pain in joint, ankle and foot 09/27/2014 ASCUS favor dysplasia 09/18/2014 12/26/2015 Visit for gynecologic examination 09/07/2014 12/26/2015 Postmenopausal HRT (hormone replacement therapy) 08/18/2014 12/26/2015 Overview: offered Gait abnormality 07/22/2014 12/26/2015 Weakness of both legs 07/22/2014 12/26/2015 Sprain of ankle, left 06/29/2014 12/26/2015 PCP (pneumocystis jiroveci pneumonia) 06/03/2014 12/26/2015 Acute respiratory failure with hypoxemia 015 12/26/2015 Overview: Increased O2 requirement overnight (2L to 5L) - bronchoscopy with BAL/TBLB tomorrow 8 AM. - NPO from midnight - hold tonight dose of lovenox. Radiation pneumonitis 05/11/2014 12/26/2015 Overview: 40 mg prednisone daily Immunodeficiency with predominant T-cell defect, unspecified 03/11/2014 12/26/2015 Urgency of micturation 03/04/2014 6 Urinary frequency 03/04/2014 12/26/2015 Arm pain, left 07/06/2013 12/26/2015 Back pain without radiation 07/06/201308/2015 Abnormal finding on imaging 07/06/201308/2015 Elevated sed rate 07/06/2013 12/26/2015 Hyperpigmentation of skin 03/31/20132015 Overview: --resolved --bilateral breast tissue and axilla --order mycolog cream --monitor Diarrhea 03/31/2013 12/26/2015 Overview: - c diff pending Mucositis (ulcerative) due to antineoplastic the rapy 03/24/2013 12/26/2015 Overview: --improved --oxy prn --mouth care measures. Reflux 03/23/2013 12/26/2015 Overview: --improved with protonix Elevated LFTs 03/22/2013 12/26/2015 Overview: --increased AST ALT during chemo, resolved. Excess fluid volume 03/21/2013 12/26/2015 Overview: --diuresis as needed --continue to monitor volume status CINV (chemotherapy-induced nausea and vomiting) 03/17/2013 10/13/2015 Overview: --Resolved --Ativan PRN (none used) Peripheral neuropathy 03/16/2013 12/26/2015 Overview: --gabapentin 300mg TID with increased symptoms, bedtime dose of gabapentin increased to 600mg with improvement reported, continue DVT prophylaxis 03/16/2013 12/26/2015 Overview: --platelet count decreasing, d/c heparin SQ --encourage ambulation Insomnia 03/16/2013 12/26/2015 Overview: --ambien PRN at HS, with relief, but with vivid dreams, ambien d/c --restoril at 30mg PRN at HS with relief, continue Chronic chest pain 03/16/2013 12/26/2015 Overview: --now resolved --since Hodgkin lymphoma diagnosis per patient Hospital discharge follow-up 03/16/201308/2015 Overview: --Patient will need to follow up with Dr. Unger after discharge Tachycardia 03/16/2013 12/26/2015 Overview: --patient taking atenolol 100mg BID at home, now BP running lower, decreased atenolol dose to 50mg BID with hypotension. --increase to 75mg BID, d/t tachycardia(HRs >110 while afebrile), HR now controlled, continue --monitor closely Electrolyte and fluid disorders not elsewhere cl assified 02/16/2013 12/26/2015 DISPOSITION AND FOLLOW-UP 10/27/20122015 Overview: 32 yo female from [place], [place]. Family involved with care, at bedside. plan to discharge patient home - will arrange with case management for post op care as needed - follow up in OPD in 7-10 days Post-op pain 10/27/2012 12/26/2015 Overview: currently well controlled with [employer] REPRESENTATIVE. will start PO pain meds today 10/27. tolerating percocet, pain relatively well controlled. Hodgkin's disease with nodular sclerosis 013 12/26/2015 Overview: Oncology history (per Dr. 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 Hodgkin's disease, unspecified 02/05/2012 0 05/11/2014 Vaginal bleeding 12/26/2015 Overview: --likely from thrombocytopenia. No menses in prior 8 months. Scant amount reported on 03/29 and 03/30, now resolved --monitor bleeding by counting pads --should f/u with her [employer] provider after BMT Premature menopause 12/26/2015 Postmenopausal atrophic vaginitis 12/26/2015 Dyspareunia 12/26/2015 documented as of this encounter (statuses as of 10/05/2021) [facility] History of Past illness Narrative* Problem Noted Date Resolved Date Menorrhagia with regular cycle 03/15/2017 1 03/03/2017 Overview: Added automatically from request for surgery [id number] History of pulmonary embolism 04/25/2016 Neoplastic (malignant) related fatigue 7 01/01/2018 Hidradenitis suppurativa 01/17/2016 018 Vitamin D deficiency 06/09/2015 12/26/2015 HyperCKemia 05/06/2015 12/26/2015 Elevated aldolase level 05/06/2015 12/26/19 16 Chronic pain of both knees 05/06/201512/25 Pain in joint, multiple sites 05/06/2015 Myalgia 05/06/2015 12/26/2015 Fatigue 05/06/2015 12/26/2015 Malaise and fatigue 03/24/2015 12/26/2015 Gastroesophageal reflux disease without esophagi tis 02/23/2015 12/26/2015 Laryngitis 02/23/2015 12/26/2015 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 10/28/2014 12/26/2015 Papanicolaou smear of cervix with low grade squamous intraepithelial lesion (LGSIL) 10/24/2014 12/25/2019 Pain in joint, ankle and foot 09/27/2014 ASCUS favor dysplasia 09/18/2014 12/26/2015 Visit for gynecologic examination 09/07/2014 12/26/2015 Postmenopausal HRT (hormone replacement therapy) 08/18/2014 12/26/2015 Overview: offered Gait abnormality 07/22/2014 12/26/2015 Weakness of both legs 07/22/2014 12/26/2015 Sprain of ankle, left 06/29/2014 12/26/2015 PCP (pneumocystis jiroveci pneumonia) 06/03/2014 12/26/2015 Acute respiratory failure with hypoxemia 015 12/26/2015 Overview: Increased O2 requirement overnight (2L to 5L) - bronchoscopy with BAL/TBLB tomorrow 8 AM. - NPO from midnight - hold tonight dose of lovenox. Radiation pneumonitis 05/11/2014 12/26/2015 Overview: 40 mg prednisone daily Immunodeficiency with predominant T-cell defect, unspecified 03/11/2014 12/26/2015 Urgency of micturation 03/04/2014 6 Urinary frequency 03/04/2014 12/26/2015 Arm pain, left 07/06/2013 12/26/2015 Back pain without radiation 07/06/201308/2015 Abnormal finding on imaging 07/06/201308/2015 Elevated sed rate 07/06/2013 12/26/2015 Hyperpigmentation of skin 03/31/20132015 Overview: --resolved --bilateral breast tissue and axilla --order mycolog cream --monitor Diarrhea 03/31/2013 12/26/2015 Overview: - c diff pending Mucositis (ulcerative) due to antineoplastic the rapy 03/24/2013 12/26/2015 Overview: --improved --oxy prn --mouth care measures. Reflux 03/23/2013 12/26/2015 Overview: --improved with protonix Elevated LFTs 03/22/2013 12/26/2015 Overview: --increased AST ALT during chemo, resolved. Excess fluid volume 03/21/2013 12/26/2015 Overview: --diuresis as needed --continue to monitor volume status CINV (chemotherapy-induced nausea and vomiting) 03/17/2013 10/13/2015 Overview: --Resolved --Ativan PRN (none used) Peripheral neuropathy 03/16/2013 12/26/2015 Overview: --gabapentin 300mg TID with increased symptoms, bedtime dose of gabapentin increased to 600mg with improvement reported, continue DVT prophylaxis 03/16/2013 12/26/2015 Overview: --platelet count decreasing, d/c heparin SQ --encourage ambulation Insomnia 03/16/2013 12/26/2015 Overview: --ambien PRN at HS, with relief, but with vivid dreams, ambien d/c --restoril at 30mg PRN at HS with relief, continue Chronic chest pain 03/16/2013 12/26/2015 Overview: --now resolved --since Hodgkin lymphoma diagnosis per patient Hospital discharge follow-up 03/16/201308/2015 Overview: --Patient will need to follow up with Dr. Unger after discharge Tachycardia 03/16/2013 12/26/2015 Overview: --patient taking atenolol 100mg BID at home, now BP running lower, decreased atenolol dose to 50mg BID with hypotension. --increase to 75mg BID, d/t tachycardia(HRs >110 while afebrile), HR now controlled, continue --monitor closely Electrolyte and fluid disorders not elsewhere cl assified 02/16/2013 12/26/2015 DISPOSITION AND FOLLOW-UP 10/27/20122015 Overview: 32 yo female from [place], [place]. Family involved with care, at bedside. plan to discharge patient home - will arrange with case management for post op care as needed - follow up in OPD in 7-10 days Post-op pain 10/27/2012 12/26/2015 Overview: currently well controlled with [employer] REPRESENTATIVE. will start PO pain meds today 10/27. tolerating percocet, pain relatively well controlled. Hodgkin's disease with nodular sclerosis 013 12/26/2015 Overview: Oncology history (per Dr. 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 Hodgkin's disease, unspecified 02/05/2012 0 05/11/2014 Vaginal bleeding 12/26/2015 Overview: --likely from thrombocytopenia. No menses in prior 8 months. Scant amount reported on 03/29 and 03/30, now resolved --monitor bleeding by counting pads --should f/u with her [employer] provider after BMT Premature menopause 12/26/2015 Postmenopausal atrophic vaginitis 12/26/2015 Dyspareunia 12/26/2015 documented as of this encounter (statuses as of 10/16/2021) [facility] History of Past illness Narrative* Problem Noted Date Resolved Date Menorrhagia with regular cycle 03/15/2017 1 03/03/2017 Overview: Added automatically from request for surgery [id number] History of pulmonary embolism 04/25/2016 Neoplastic (malignant) related fatigue 7 01/01/2018 Hidradenitis suppurativa 01/17/2016 018 Vitamin D deficiency 06/09/2015 12/26/2015 HyperCKemia 05/06/2015 12/26/2015 Elevated aldolase level 05/06/2015 12/26/19 16 Chronic pain of both knees 05/06/201512/25 Pain in joint, multiple sites 05/06/2015 Myalgia 05/06/2015 12/26/2015 Fatigue 05/06/2015 12/26/2015 Malaise and fatigue 03/24/2015 12/26/2015 Gastroesophageal reflux disease without esophagi tis 02/23/2015 12/26/2015 Laryngitis 02/23/2015 12/26/2015 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 10/28/2014 12/26/2015 Papanicolaou smear of cervix with low grade squamous intraepithelial lesion (LGSIL) 10/24/2014 12/25/2019 Pain in joint, ankle and foot 09/27/2014 ASCUS favor dysplasia 09/18/2014 12/26/2015 Visit for gynecologic examination 09/07/2014 12/26/2015 Postmenopausal HRT (hormone replacement therapy) 08/18/2014 12/26/2015 Overview: offered Gait abnormality 07/22/2014 12/26/2015 Weakness of both legs 07/22/2014 12/26/2015 Sprain of ankle, left 06/29/2014 12/26/2015 PCP (pneumocystis jiroveci pneumonia) 06/03/2014 12/26/2015 Acute respiratory failure with hypoxemia 015 12/26/2015 Overview: Increased O2 requirement overnight (2L to 5L) - bronchoscopy with BAL/TBLB tomorrow 8 AM. - NPO from midnight - hold tonight dose of lovenox. Radiation pneumonitis 05/11/2014 12/26/2015 Overview: 40 mg prednisone daily Immunodeficiency with predominant T-cell defect, unspecified 03/11/2014 12/26/2015 Urgency of micturation 03/04/2014 6 Urinary frequency 03/04/2014 12/26/2015 Arm pain, left 07/06/2013 12/26/2015 Back pain without radiation 07/06/201308/2015 Abnormal finding on imaging 07/06/201308/2015 Elevated sed rate 07/06/2013 12/26/2015 Hyperpigmentation of skin 03/31/20132015 Overview: --resolved --bilateral breast tissue and axilla --order mycolog cream --monitor Diarrhea 03/31/2013 12/26/2015 Overview: - c diff pending Mucositis (ulcerative) due to antineoplastic the rapy 03/24/2013 12/26/2015 Overview: --improved --oxy prn --mouth care measures. Reflux 03/23/2013 12/26/2015 Overview: --improved with protonix Elevated LFTs 03/22/2013 12/26/2015 Overview: --increased AST ALT during chemo, resolved. Excess fluid volume 03/21/2013 12/26/2015 Overview: --diuresis as needed --continue to monitor volume status CINV (chemotherapy-induced nausea and vomiting) 03/17/2013 10/13/2015 Overview: --Resolved --Ativan PRN (none used) Peripheral neuropathy 03/16/2013 12/26/2015 Overview: --gabapentin 300mg TID with increased symptoms, bedtime dose of gabapentin increased to 600mg with improvement reported, continue DVT prophylaxis 03/16/2013 12/26/2015 Overview: --platelet count decreasing, d/c heparin SQ --encourage ambulation Insomnia 03/16/2013 12/26/2015 Overview: --ambien PRN at HS, with relief, but with vivid dreams, ambien d/c --restoril at 30mg PRN at HS with relief, continue Chronic chest pain 03/16/2013 12/26/2015 Overview: --now resolved --since Hodgkin lymphoma diagnosis per patient Hospital discharge follow-up 03/16/201308/2015 Overview: --Patient will need to follow up with Dr. Unger after discharge Tachycardia 03/16/2013 12/26/2015 Overview: --patient taking atenolol 100mg BID at home, now BP running lower, decreased atenolol dose to 50mg BID with hypotension. --increase to 75mg BID, d/t tachycardia(HRs >110 while afebrile), HR now controlled, continue --monitor closely Electrolyte and fluid disorders not elsewhere cl assified 02/16/2013 12/26/2015 DISPOSITION AND FOLLOW-UP 10/27/20122015 Overview: 32 yo female from [place], [place]. Family involved with care, at bedside. plan to discharge patient home - will arrange with case management for post op care as needed - follow up in OPD in 7-10 days Post-op pain 10/27/2012 12/26/2015 Overview: currently well controlled with [employer] REPRESENTATIVE. will start PO pain meds today 10/27. tolerating percocet, pain relatively well controlled. Hodgkin's disease with nodular sclerosis 013 12/26/2015 Overview: Oncology history (per Dr. 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 Hodgkin's disease, unspecified 02/05/2012 0 05/11/2014 Vaginal bleeding 12/26/2015 Overview: --likely from thrombocytopenia. No menses in prior 8 months. Scant amount reported on 03/29 and 03/30, now resolved --monitor bleeding by counting pads --should f/u with her [employer] provider after BMT Premature menopause 12/26/2015 Postmenopausal atrophic vaginitis 12/26/2015 Dyspareunia 12/26/2015 documented as of this encounter (statuses as of 10/18/2021) [facility] History of Past illness Narrative* Problem Noted Date Resolved Date Menorrhagia with regular cycle 03/15/2017 1 03/03/2017 Overview: Added automatically from request for surgery [id number] History of pulmonary embolism 04/25/2016 Neoplastic (malignant) related fatigue 7 01/01/2018 Hidradenitis suppurativa 01/17/2016 018 Vitamin D deficiency 06/09/2015 12/26/2015 HyperCKemia 05/06/2015 12/26/2015 Elevated aldolase level 05/06/2015 12/26/19 16 Chronic pain of both knees 05/06/201512/25 Pain in joint, multiple sites 05/06/2015 Myalgia 05/06/2015 12/26/2015 Fatigue 05/06/2015 12/26/2015 Malaise and fatigue 03/24/2015 12/26/2015 Gastroesophageal reflux disease without esophagi tis 02/23/2015 12/26/2015 Laryngitis 02/23/2015 12/26/2015 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 10/28/2014 12/26/2015 Papanicolaou smear of cervix with low grade squamous intraepithelial lesion (LGSIL) 10/24/2014 12/25/2019 Pain in joint, ankle and foot 09/27/2014 ASCUS favor dysplasia 09/18/2014 12/26/2015 Visit for gynecologic examination 09/07/2014 12/26/2015 Postmenopausal HRT (hormone replacement therapy) 08/18/2014 12/26/2015 Overview: offered Gait abnormality 07/22/2014 12/26/2015 Weakness of both legs 07/22/2014 12/26/2015 Sprain of ankle, left 06/29/2014 12/26/2015 PCP (pneumocystis jiroveci pneumonia) 06/03/2014 12/26/2015 Acute respiratory failure with hypoxemia 015 12/26/2015 Overview: Increased O2 requirement overnight (2L to 5L) - bronchoscopy with BAL/TBLB tomorrow 8 AM. - NPO from midnight - hold tonight dose of lovenox. Radiation pneumonitis 05/11/2014 12/26/2015 Overview: 40 mg prednisone daily Immunodeficiency with predominant T-cell defect, unspecified 03/11/2014 12/26/2015 Urgency of micturation 03/04/2014 6 Urinary frequency 03/04/2014 12/26/2015 Arm pain, left 07/06/2013 12/26/2015 Back pain without radiation 07/06/201308/2015 Abnormal finding on imaging 07/06/201308/2015 Elevated sed rate 07/06/2013 12/26/2015 Hyperpigmentation of skin 03/31/20132015 Overview: --resolved --bilateral breast tissue and axilla --order mycolog cream --monitor Diarrhea 03/31/2013 12/26/2015 Overview: - c diff pending Mucositis (ulcerative) due to antineoplastic the rapy 03/24/2013 12/26/2015 Overview: --improved --oxy prn --mouth care measures. Reflux 03/23/2013 12/26/2015 Overview: --improved with protonix Elevated LFTs 03/22/2013 12/26/2015 Overview: --increased AST ALT during chemo, resolved. Excess fluid volume 03/21/2013 12/26/2015 Overview: --diuresis as needed --continue to monitor volume status CINV (chemotherapy-induced nausea and vomiting) 03/17/2013 10/13/2015 Overview: --Resolved --Ativan PRN (none used) Peripheral neuropathy 03/16/2013 12/26/2015 Overview: --gabapentin 300mg TID with increased symptoms, bedtime dose of gabapentin increased to 600mg with improvement reported, continue DVT prophylaxis 03/16/2013 12/26/2015 Overview: --platelet count decreasing, d/c heparin SQ --encourage ambulation Insomnia 03/16/2013 12/26/2015 Overview: --ambien PRN at HS, with relief, but with vivid dreams, ambien d/c --restoril at 30mg PRN at HS with relief, continue Chronic chest pain 03/16/2013 12/26/2015 Overview: --now resolved --since Hodgkin lymphoma diagnosis per patient Hospital discharge follow-up 03/16/201308/2015 Overview: --Patient will need to follow up with Dr. Unger after discharge Tachycardia 03/16/2013 12/26/2015 Overview: --patient taking atenolol 100mg BID at home, now BP running lower, decreased atenolol dose to 50mg BID with hypotension. --increase to 75mg BID, d/t tachycardia(HRs >110 while afebrile), HR now controlled, continue --monitor closely Electrolyte and fluid disorders not elsewhere cl assified 02/16/2013 12/26/2015 DISPOSITION AND FOLLOW-UP 10/27/20122015 Overview: 32 yo female from [place], [place]. Family involved with care, at bedside. plan to discharge patient home - will arrange with case management for post op care as needed - follow up in OPD in 7-10 days Post-op pain 10/27/2012 12/26/2015 Overview: currently well controlled with [employer] REPRESENTATIVE. will start PO pain meds today 10/27. tolerating percocet, pain relatively well controlled. Hodgkin's disease with nodular sclerosis 013 12/26/2015 Overview: Oncology history (per Dr. 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 Hodgkin's disease, unspecified 02/05/2012 0 05/11/2014 Vaginal bleeding 12/26/2015 Overview: --likely from thrombocytopenia. No menses in prior 8 months. Scant amount reported on 03/29 and 03/30, now resolved --monitor bleeding by counting pads --should f/u with her [employer] [employer] provider after BMT Premature menopause 12/26/2015 Postmenopausal atrophic vaginitis 12/26/2015 Dyspareunia 12/26/2015 documented as of this encounter (statuses as of 10/25/2021) [facility] History of Past illness Narrative* Problem Noted Date Resolved Date Menorrhagia with regular cycle 03/15/2017 1 03/03/2017 Overview: Added automatically from request for surgery [id number] History of pulmonary embolism 04/25/2016 Neoplastic (malignant) related fatigue 7 01/01/2018 Hidradenitis suppurativa 01/17/2016 018 Vitamin D deficiency 06/09/2015 12/26/2015 HyperCKemia 05/06/2015 12/26/2015 Elevated aldolase level 05/06/2015 12/26/19 16 Chronic pain of both knees 05/06/201512/25 Pain in joint, multiple sites 05/06/2015 Myalgia 05/06/2015 12/26/2015 Fatigue 05/06/2015 12/26/2015 Malaise and fatigue 03/24/2015 12/26/2015 Gastroesophageal reflux disease without esophagi tis 02/23/2015 12/26/2015 Laryngitis 02/23/2015 12/26/2015 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 10/28/2014 12/26/2015 Papanicolaou smear of cervix with low grade squamous intraepithelial lesion (LGSIL) 10/24/2014 12/25/2019 Pain in joint, ankle and foot 09/27/2014 ASCUS favor dysplasia 09/18/2014 12/26/2015 Visit for gynecologic examination 09/07/2014 12/26/2015 Postmenopausal HRT (hormone replacement therapy) 08/18/2014 12/26/2015 Overview: offered Gait abnormality 07/22/2014 12/26/2015 Weakness of both legs 07/22/2014 12/26/2015 Sprain of ankle, left 06/29/2014 12/26/2015 PCP (pneumocystis jiroveci pneumonia) 06/03/2014 12/26/2015 Acute respiratory failure with hypoxemia 015 12/26/2015 Overview: Increased O2 requirement overnight (2L to 5L) - bronchoscopy with BAL/TBLB tomorrow 8 AM. - NPO from midnight - hold tonight dose of lovenox. Radiation pneumonitis 05/11/2014 12/26/2015 Overview: 40 mg prednisone daily Immunodeficiency with predominant T-cell defect, unspecified 03/11/2014 12/26/2015 Urgency of micturation 03/04/2014 6 Urinary frequency 03/04/2014 12/26/2015 Arm pain, left 07/06/2013 12/26/2015 Back pain without radiation 07/06/201308/2015 Abnormal finding on imaging 07/06/201308/2015 Elevated sed rate 07/06/2013 12/26/2015 Hyperpigmentation of skin 03/31/20132015 Overview: --resolved --bilateral breast tissue and axilla --order mycolog cream --monitor Diarrhea 03/31/2013 12/26/2015 Overview: - c diff pending Mucositis (ulcerative) due to antineoplastic the rapy 03/24/2013 12/26/2015 Overview: --improved --oxy prn --mouth care measures. Reflux 03/23/2013 12/26/2015 Overview: --improved with protonix Elevated LFTs 03/22/2013 12/26/2015 Overview: --increased AST ALT during chemo, resolved. Excess fluid volume 03/21/2013 12/26/2015 Overview: --diuresis as needed --continue to monitor volume status CINV (chemotherapy-induced nausea and vomiting) 03/17/2013 10/13/2015 Overview: --Resolved --Ativan PRN (none used) Peripheral neuropathy 03/16/2013 12/26/2015 Overview: --gabapentin 300mg TID with increased symptoms, bedtime dose of gabapentin increased to 600mg with improvement reported, continue DVT prophylaxis 03/16/2013 12/26/2015 Overview: --platelet count decreasing, d/c heparin SQ --encourage ambulation Insomnia 03/16/2013 12/26/2015 Overview: --ambien PRN at HS, with relief, but with vivid dreams, ambien d/c --restoril at 30mg PRN at HS with relief, continue Chronic chest pain 03/16/2013 12/26/2015 Overview: --now resolved --since Hodgkin lymphoma diagnosis per patient Hospital discharge follow-up 03/16/201308/2015 Overview: --Patient will need to follow up with Dr. Unger after discharge Tachycardia 03/16/2013 12/26/2015 Overview: --patient taking atenolol 100mg BID at home, now BP running lower, decreased atenolol dose to 50mg BID with hypotension. --increase to 75mg BID, d/t tachycardia(HRs >110 while afebrile), HR now controlled, continue --monitor closely Electrolyte and fluid disorders not elsewhere cl assified 02/16/2013 12/26/2015 DISPOSITION AND FOLLOW-UP 10/27/20122015 Overview: 32 yo female from [place], [place]. Family involved with care, at bedside. plan to discharge patient home - will arrange with case management for post op care as needed - follow up in OPD in 7-10 days Post-op pain 10/27/2012 12/26/2015 Overview: currently well controlled with [employer] REPRESENTATIVE. will start PO pain meds today 10/27. tolerating percocet, pain relatively well controlled. Hodgkin's disease with nodular sclerosis 013 12/26/2015 Overview: Oncology history (per Dr. 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 Hodgkin's disease, unspecified 02/05/2012 0 05/11/2014 Vaginal bleeding 12/26/2015 Overview: --likely from thrombocytopenia. No menses in prior 8 months. Scant amount reported on 03/29 and 03/30, now resolved --monitor bleeding by counting pads --should f/u with her [employer] provider after BMT Premature menopause 12/26/2015 Postmenopausal atrophic vaginitis 12/26/2015 Dyspareunia 12/26/2015 documented as of this encounter (statuses as of 10/25/2021) [facility] History of Past illness Narrative* Problem Noted Date Resolved Date Menorrhagia with regular cycle 03/15/2017 1 03/03/2017 Overview: Added automatically from request for surgery [id number] History of pulmonary embolism 04/25/2016 Neoplastic (malignant) related fatigue 7 01/01/2018 Hidradenitis suppurativa 01/17/2016 018 Vitamin D deficiency 06/09/2015 12/26/2015 HyperCKemia 05/06/2015 12/26/2015 Elevated aldolase level 05/06/2015 12/26/19 16 Chronic pain of both knees 05/06/201512/25 Pain in joint, multiple sites 05/06/2015 Myalgia 05/06/2015 12/26/2015 Fatigue 05/06/2015 12/26/2015 Malaise and fatigue 03/24/2015 12/26/2015 Gastroesophageal reflux disease without esophagi tis 02/23/2015 12/26/2015 Laryngitis 02/23/2015 12/26/2015 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 10/28/2014 12/26/2015 Papanicolaou smear of cervix with low grade squamous intraepithelial lesion (LGSIL) 10/24/2014 12/25/2019 Pain in joint, ankle and foot 09/27/2014 ASCUS favor dysplasia 09/18/2014 12/26/2015 Visit for gynecologic examination 09/07/2014 12/26/2015 Postmenopausal HRT (hormone replacement therapy) 08/18/2014 12/26/2015 Overview: offered Gait abnormality 07/22/2014 12/26/2015 Weakness of both legs 07/22/2014 12/26/2015 Sprain of ankle, left 06/29/2014 12/26/2015 PCP (pneumocystis jiroveci pneumonia) 06/03/2014 12/26/2015 Acute respiratory failure with hypoxemia 015 12/26/2015 Overview: Increased O2 requirement overnight (2L to 5L) - bronchoscopy with BAL/TBLB tomorrow 8 AM. - NPO from midnight - hold tonight dose of lovenox. Radiation pneumonitis 05/11/2014 12/26/2015 Overview: 40 mg prednisone daily Immunodeficiency with predominant T-cell defect, unspecified 03/11/2014 12/26/2015 Urgency of micturation 03/04/2014 6 Urinary frequency 03/04/2014 12/26/2015 Arm pain, left 07/06/2013 12/26/2015 Back pain without radiation 07/06/201308/2015 Abnormal finding on imaging 07/06/201308/2015 Elevated sed rate 07/06/2013 12/26/2015 Hyperpigmentation of skin 03/31/20132015 Overview: --resolved --bilateral breast tissue and axilla --order mycolog cream --monitor Diarrhea 03/31/2013 12/26/2015 Overview: - c diff pending Mucositis (ulcerative) due to antineoplastic the rapy 03/24/2013 12/26/2015 Overview: --improved --oxy prn --mouth care measures. Reflux 03/23/2013 12/26/2015 Overview: --improved with protonix Elevated LFTs 03/22/2013 12/26/2015 Overview: --increased AST ALT during chemo, resolved. Excess fluid volume 03/21/2013 12/26/2015 Overview: --diuresis as needed --continue to monitor volume status CINV (chemotherapy-induced nausea and vomiting) 03/17/2013 10/13/2015 Overview: --Resolved --Ativan PRN (none used) Peripheral neuropathy 03/16/2013 12/26/2015 Overview: --gabapentin 300mg TID with increased symptoms, bedtime dose of gabapentin increased to 600mg with improvement reported, continue DVT prophylaxis 03/16/2013 12/26/2015 Overview: --platelet count decreasing, d/c heparin SQ --encourage ambulation Insomnia 03/16/2013 12/26/2015 Overview: --ambien PRN at HS, with relief, but with vivid dreams, ambien d/c --restoril at 30mg PRN at HS with relief, continue Chronic chest pain 03/16/2013 12/26/2015 Overview: --now resolved --since Hodgkin lymphoma diagnosis per patient Hospital discharge follow-up 03/16/201308/2015 Overview: --Patient will need to follow up with Dr. Unger after discharge Tachycardia 03/16/2013 12/26/2015 Overview: --patient taking atenolol 100mg BID at home, now BP running lower, decreased atenolol dose to 50mg BID with hypotension. --increase to 75mg BID, d/t tachycardia(HRs >110 while afebrile), HR now controlled, continue --monitor closely Electrolyte and fluid disorders not elsewhere cl assified 02/16/2013 12/26/2015 DISPOSITION AND FOLLOW-UP 10/27/20122015 Overview: 32 yo female from [place], [place]. Family involved with care, at bedside. plan to discharge patient home - will arrange with case management for post op care as needed - follow up in OPD in 7-10 days Post-op pain 10/27/2012 12/26/2015 Overview: currently well controlled with [employer] REPRESENTATIVE. will start PO pain meds today 10/27. tolerating percocet, pain relatively well controlled. Hodgkin's disease with nodular sclerosis 013 12/26/2015 Overview: Oncology history (per Dr. 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 Hodgkin's disease, unspecified 02/05/2012 0 05/11/2014 Vaginal bleeding 12/26/2015 Overview: --likely from thrombocytopenia. No menses in prior 8 months. Scant amount reported on 03/29 and 03/30, now resolved --monitor bleeding by counting pads --should f/u with her [employer] provider after BMT Premature menopause 12/26/2015 Postmenopausal atrophic vaginitis 12/26/2015 Dyspareunia 12/26/2015 documented as of this encounter (statuses as of 10/26/2021) [facility] History of Past illness Narrative* Problem Noted Date Resolved Date Menorrhagia with regular cycle 03/15/2017 1 03/03/2017 Overview: Added automatically from request for surgery [id number] History of pulmonary embolism 04/25/2016 Neoplastic (malignant) related fatigue 7 01/01/2018 Hidradenitis suppurativa 01/17/2016 018 Vitamin D deficiency 06/09/2015 12/26/2015 HyperCKemia 05/06/2015 12/26/2015 Elevated aldolase level 05/06/2015 12/26/19 16 Chronic pain of both knees 05/06/201512/25 Pain in joint, multiple sites 05/06/2015 Myalgia 05/06/2015 12/26/2015 Fatigue 05/06/2015 12/26/2015 Malaise and fatigue 03/24/2015 12/26/2015 Gastroesophageal reflux disease without esophagi tis 02/23/2015 12/26/2015 Laryngitis 02/23/2015 12/26/2015 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 10/28/2014 12/26/2015 Papanicolaou smear of cervix with low grade squamous intraepithelial lesion (LGSIL) 10/24/2014 12/25/2019 Pain in joint, ankle and foot 09/27/2014 ASCUS favor dysplasia 09/18/2014 12/26/2015 Visit for gynecologic examination 09/07/2014 12/26/2015 Postmenopausal HRT (hormone replacement therapy) 08/18/2014 12/26/2015 Overview: offered Gait abnormality 07/22/2014 12/26/2015 Weakness of both legs 07/22/2014 12/26/2015 Sprain of ankle, left 06/29/2014 12/26/2015 PCP (pneumocystis jiroveci pneumonia) 06/03/2014 12/26/2015 Acute respiratory failure with hypoxemia 015 12/26/2015 Overview: Increased O2 requirement overnight (2L to 5L) - bronchoscopy with BAL/TBLB tomorrow 8 AM. - NPO from midnight - hold tonight dose of lovenox. Radiation pneumonitis 05/11/2014 12/26/2015 Overview: 40 mg prednisone daily Immunodeficiency with predominant T-cell defect, unspecified 03/11/2014 12/26/2015 Urgency of micturation 03/04/2014 6 Urinary frequency 03/04/2014 12/26/2015 Arm pain, left 07/06/2013 12/26/2015 Back pain without radiation 07/06/201308/2015 Abnormal finding on imaging 07/06/201308/2015 Elevated sed rate 07/06/2013 12/26/2015 Hyperpigmentation of skin 03/31/20132015 Overview: --resolved --bilateral breast tissue and axilla --order mycolog cream --monitor Diarrhea 03/31/2013 12/26/2015 Overview: - c diff pending Mucositis (ulcerative) due to antineoplastic the rapy 03/24/2013 12/26/2015 Overview: --improved --oxy prn --mouth care measures. Reflux 03/23/2013 12/26/2015 Overview: --improved with protonix Elevated LFTs 03/22/2013 12/26/2015 Overview: --increased AST ALT during chemo, resolved. Excess fluid volume 03/21/2013 12/26/2015 Overview: --diuresis as needed --continue to monitor volume status CINV (chemotherapy-induced nausea and vomiting) 03/17/2013 10/13/2015 Overview: --Resolved --Ativan PRN (none used) Peripheral neuropathy 03/16/2013 12/26/2015 Overview: --gabapentin 300mg TID with increased symptoms, bedtime dose of gabapentin increased to 600mg with improvement reported, continue DVT prophylaxis 03/16/2013 12/26/2015 Overview: --platelet count decreasing, d/c heparin SQ --encourage ambulation Insomnia 03/16/2013 12/26/2015 Overview: --ambien PRN at HS, with relief, but with vivid dreams, ambien d/c --restoril at 30mg PRN at HS with relief, continue Chronic chest pain 03/16/2013 12/26/2015 Overview: --now resolved --since Hodgkin lymphoma diagnosis per patient Hospital discharge follow-up 03/16/201308/2015 Overview: --Patient will need to follow up with Dr. Unger after discharge Tachycardia 03/16/2013 12/26/2015 Overview: --patient taking atenolol 100mg BID at home, now BP running lower, decreased atenolol dose to 50mg BID with hypotension. --increase to 75mg BID, d/t tachycardia(HRs >110 while afebrile), HR now controlled, continue --monitor closely Electrolyte and fluid disorders not elsewhere cl assified 02/16/2013 12/26/2015 DISPOSITION AND FOLLOW-UP 10/27/20122015 Overview: 32 yo female from [place], [place]. Family involved with care, at bedside. plan to discharge patient home - will arrange with case management for post op care as needed - follow up in OPD in 7-10 days Post-op pain 10/27/2012 12/26/2015 Overview: currently well controlled with [employer] REPRESENTATIVE. will start PO pain meds today 10/27. tolerating percocet, pain relatively well controlled. Hodgkin's disease with nodular sclerosis 013 12/26/2015 Overview: Oncology history (per Dr. 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 Hodgkin's disease, unspecified 02/05/2012 0 05/11/2014 Vaginal bleeding 12/26/2015 Overview: --likely from thrombocytopenia. No menses in prior 8 months. Scant amount reported on 03/29 and 03/30, now resolved --monitor bleeding by counting pads --should f/u with her [employer] provider after BMT Premature menopause 12/26/2015 Postmenopausal atrophic vaginitis 12/26/2015 Dyspareunia 12/26/2015 documented as of this encounter (statuses as of 10/26/2021) [facility] History of Past illness Narrative* Problem Noted Date Resolved Date Menorrhagia with regular cycle 03/15/2017 1 03/03/2017 Overview: Added automatically from request for surgery [id number] History of pulmonary embolism 04/25/2016 Neoplastic (malignant) related fatigue 7 01/01/2018 Hidradenitis suppurativa 01/17/2016 018 Vitamin D deficiency 06/09/2015 12/26/2015 HyperCKemia 05/06/2015 12/26/2015 Elevated aldolase level 05/06/2015 12/26/19 16 Chronic pain of both knees 05/06/201512/25 Pain in joint, multiple sites 05/06/2015 Myalgia 05/06/2015 12/26/2015 Fatigue 05/06/2015 12/26/2015 Malaise and fatigue 03/24/2015 12/26/2015 Gastroesophageal reflux disease without esophagi tis 02/23/2015 12/26/2015 Laryngitis 02/23/2015 12/26/2015 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 10/28/2014 12/26/2015 Papanicolaou smear of cervix with low grade squamous intraepithelial lesion (LGSIL) 10/24/2014 12/25/2019 Pain in joint, ankle and foot 09/27/2014 ASCUS favor dysplasia 09/18/2014 12/26/2015 Visit for gynecologic examination 09/07/2014 12/26/2015 Postmenopausal HRT (hormone replacement therapy) 08/18/2014 12/26/2015 Overview: offered Gait abnormality 07/22/2014 12/26/2015 Weakness of both legs 07/22/2014 12/26/2015 Sprain of ankle, left 06/29/2014 12/26/2015 PCP (pneumocystis jiroveci pneumonia) 06/03/2014 12/26/2015 Acute respiratory failure with hypoxemia 015 12/26/2015 Overview: Increased O2 requirement overnight (2L to 5L) - bronchoscopy with BAL/TBLB tomorrow 8 AM. - NPO from midnight - hold tonight dose of lovenox. Radiation pneumonitis 05/11/2014 12/26/2015 Overview: 40 mg prednisone daily Immunodeficiency with predominant T-cell defect, unspecified 03/11/2014 12/26/2015 Urgency of micturation 03/04/2014 6 Urinary frequency 03/04/2014 12/26/2015 Arm pain, left 07/06/2013 12/26/2015 Back pain without radiation 07/06/201308/2015 Abnormal finding on imaging 07/06/201308/2015 Elevated sed rate 07/06/2013 12/26/2015 Hyperpigmentation of skin 03/31/20132015 Overview: --resolved --bilateral breast tissue and axilla --order mycolog cream --monitor Diarrhea 03/31/2013 12/26/2015 Overview: - c diff pending Mucositis (ulcerative) due to antineoplastic the rapy 03/24/2013 12/26/2015 Overview: --improved --oxy prn --mouth care measures. Reflux 03/23/2013 12/26/2015 Overview: --improved with protonix Elevated LFTs 03/22/2013 12/26/2015 Overview: --increased AST ALT during chemo, resolved. Excess fluid volume 03/21/2013 12/26/2015 Overview: --diuresis as needed --continue to monitor volume status CINV (chemotherapy-induced nausea and vomiting) 03/17/2013 10/13/2015 Overview: --Resolved --Ativan PRN (none used) Peripheral neuropathy 03/16/2013 12/26/2015 Overview: --gabapentin 300mg TID with increased symptoms, bedtime dose of gabapentin increased to 600mg with improvement reported, continue DVT prophylaxis 03/16/2013 12/26/2015 Overview: --platelet count decreasing, d/c heparin SQ --encourage ambulation Insomnia 03/16/2013 12/26/2015 Overview: --ambien PRN at HS, with relief, but with vivid dreams, ambien d/c --restoril at 30mg PRN at HS with relief, continue Chronic chest pain 03/16/2013 12/26/2015 Overview: --now resolved --since Hodgkin lymphoma diagnosis per patient Hospital discharge follow-up 03/16/201308/2015 Overview: --Patient will need to follow up with Dr. Unger after discharge Tachycardia 03/16/2013 12/26/2015 Overview: --patient taking atenolol 100mg BID at home, now BP running lower, decreased atenolol dose to 50mg BID with hypotension. --increase to 75mg BID, d/t tachycardia(HRs >110 while afebrile), HR now controlled, continue --monitor closely Electrolyte and fluid disorders not elsewhere cl assified 02/16/2013 12/26/2015 DISPOSITION AND FOLLOW-UP 10/27/20122015 Overview: 32 yo female from [place], [place]. Family involved with care, at bedside. plan to discharge patient home - will arrange with case management for post op care as needed - follow up in OPD in 7-10 days Post-op pain 10/27/2012 12/26/2015 Overview: currently well controlled with [employer] REPRESENTATIVE. will start PO pain meds today 10/27. tolerating percocet, pain relatively well controlled. Hodgkin's disease with nodular sclerosis 013 12/26/2015 Overview: Oncology history (per Dr. 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 Hodgkin's disease, unspecified 02/05/2012 0 05/11/2014 Vaginal bleeding 12/26/2015 Overview: --likely from thrombocytopenia. No menses in prior 8 months. Scant amount reported on 03/29 and 03/30, now resolved --monitor bleeding by counting pads --should f/u with her [employer] provider after BMT Premature menopause 12/26/2015 Postmenopausal atrophic vaginitis 12/26/2015 Dyspareunia 12/26/2015 documented as of this encounter (statuses as of 10/31/2021) [facility] History of Past illness Narrative* Problem Noted Date Resolved Date Menorrhagia with regular cycle 03/15/2017 1 03/03/2017 Overview: Added automatically from request for surgery [id number] History of pulmonary embolism 04/25/2016 Neoplastic (malignant) related fatigue 7 01/01/2018 Hidradenitis suppurativa 01/17/2016 018 Vitamin D deficiency 06/09/2015 12/26/2015 HyperCKemia 05/06/2015 12/26/2015 Elevated aldolase level 05/06/2015 12/26/19 16 Chronic pain of both knees 05/06/201512/25 Pain in joint, multiple sites 05/06/2015 Myalgia 05/06/2015 12/26/2015 Fatigue 05/06/2015 12/26/2015 Malaise and fatigue 03/24/2015 12/26/2015 Gastroesophageal reflux disease without esophagi tis 02/23/2015 12/26/2015 Laryngitis 02/23/2015 12/26/2015 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 10/28/2014 12/26/2015 Papanicolaou smear of cervix with low grade squamous intraepithelial lesion (LGSIL) 10/24/2014 12/25/2019 Pain in joint, ankle and foot 09/27/2014 ASCUS favor dysplasia 09/18/2014 12/26/2015 Visit for gynecologic examination 09/07/2014 12/26/2015 Postmenopausal HRT (hormone replacement therapy) 08/18/2014 12/26/2015 Overview: offered Gait abnormality 07/22/2014 12/26/2015 Weakness of both legs 07/22/2014 12/26/2015 Sprain of ankle, left 06/29/2014 12/26/2015 PCP (pneumocystis jiroveci pneumonia) 06/03/2014 12/26/2015 Acute respiratory failure with hypoxemia 015 12/26/2015 Overview: Increased O2 requirement overnight (2L to 5L) - bronchoscopy with BAL/TBLB tomorrow 8 AM. - NPO from midnight - hold tonight dose of lovenox. Radiation pneumonitis 05/11/2014 12/26/2015 Overview: 40 mg prednisone daily Immunodeficiency with predominant T-cell defect, unspecified 03/11/2014 12/26/2015 Urgency of micturation 03/04/2014 6 Urinary frequency 03/04/2014 12/26/2015 Arm pain, left 07/06/2013 12/26/2015 Back pain without radiation 07/06/201308/2015 Abnormal finding on imaging 07/06/201308/2015 Elevated sed rate 07/06/2013 12/26/2015 Hyperpigmentation of skin 03/31/20132015 Overview: --resolved --bilateral breast tissue and axilla --order mycolog cream --monitor Diarrhea 03/31/2013 12/26/2015 Overview: - c diff pending Mucositis (ulcerative) due to antineoplastic the rapy 03/24/2013 12/26/2015 Overview: --improved --oxy prn --mouth care measures. Reflux 03/23/2013 12/26/2015 Overview: --improved with protonix Elevated LFTs 03/22/2013 12/26/2015 Overview: --increased AST ALT during chemo, resolved. Excess fluid volume 03/21/2013 12/26/2015 Overview: --diuresis as needed --continue to monitor volume status CINV (chemotherapy-induced nausea and vomiting) 03/17/2013 10/13/2015 Overview: --Resolved --Ativan PRN (none used) Peripheral neuropathy 03/16/2013 12/26/2015 Overview: --gabapentin 300mg TID with increased symptoms, bedtime dose of gabapentin increased to 600mg with improvement reported, continue DVT prophylaxis 03/16/2013 12/26/2015 Overview: --platelet count decreasing, d/c heparin SQ --encourage ambulation Insomnia 03/16/2013 12/26/2015 Overview: --ambien PRN at HS, with relief, but with vivid dreams, ambien d/c --restoril at 30mg PRN at HS with relief, continue Chronic chest pain 03/16/2013 12/26/2015 Overview: --now resolved --since Hodgkin lymphoma diagnosis per patient Hospital discharge follow-up 03/16/201308/2015 Overview: --Patient will need to follow up with Dr. Unger after discharge Tachycardia 03/16/2013 12/26/2015 Overview: --patient taking atenolol 100mg BID at home, now BP running lower, decreased atenolol dose to 50mg BID with hypotension. --increase to 75mg BID, d/t tachycardia(HRs >110 while afebrile), HR now controlled, continue --monitor closely Electrolyte and fluid disorders not elsewhere cl assified 02/16/2013 12/26/2015 DISPOSITION AND FOLLOW-UP 10/27/20122015 Overview: 32 yo female from [place], [place]. Family involved with care, at bedside. plan to discharge patient home - will arrange with case management for post op care as needed - follow up in OPD in 7-10 days Post-op pain 10/27/2012 12/26/2015 Overview: currently well controlled with [employer] REPRESENT[employer]IVE. will start PO pain meds today 10/27. tolerating percocet, pain relatively well controlled. Hodgkin's disease with nodular sclerosis 013 12/26/2015 Overview: Oncology history (per Dr. 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 Hodgkin's disease, unspecified 02/05/2012 0 05/11/2014 Vaginal bleeding 12/26/2015 Overview: --likely from thrombocytopenia. No menses in prior 8 months. Scant amount reported on 03/29 and 03/30, now resolved --monitor bleeding by counting pads --should f/u with her [employer] [employer] provider after BMT Premature menopause 12/26/2015 Postmenopausal atrophic vaginitis 12/26/2015 Dyspareunia 12/26/2015 documented as of this encounter (statuses as of 11/08/2021) [facility] History of Past illness Narrative* Problem Noted Date Resolved Date Menorrhagia with regular cycle 03/15/2017 1 03/03/2017 Overview: Added automatically from request for surgery [id number] History of pulmonary embolism 04/25/2016 Neoplastic (malignant) related fatigue 7 01/01/2018 Hidradenitis suppurativa 01/17/2016 018 Vitamin D deficiency 06/09/2015 12/26/2015 HyperCKemia 05/06/2015 12/26/2015 Elevated aldolase level 05/06/2015 12/26/19 16 Chronic pain of both knees 05/06/201512/25 Pain in joint, multiple sites 05/06/2015 Myalgia 05/06/2015 12/26/2015 Fatigue 05/06/2015 12/26/2015 Malaise and fatigue 03/24/2015 12/26/2015 Gastroesophageal reflux disease without esophagi tis 02/23/2015 12/26/2015 Laryngitis 02/23/2015 12/26/2015 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 10/28/2014 12/26/2015 Papanicolaou smear of cervix with low grade squamous intraepithelial lesion (LGSIL) 10/24/2014 12/25/2019 Pain in joint, ankle and foot 09/27/2014 ASCUS favor dysplasia 09/18/2014 12/26/2015 Visit for gynecologic examination 09/07/2014 12/26/2015 Postmenopausal HRT (hormone replacement therapy) 08/18/2014 12/26/2015 Overview: offered Gait abnormality 07/22/2014 12/26/2015 Weakness of both legs 07/22/2014 12/26/2015 Sprain of ankle, left 06/29/2014 12/26/2015 PCP (pneumocystis jiroveci pneumonia) 06/03/2014 12/26/2015 Acute respiratory failure with hypoxemia 015 12/26/2015 Overview: Increased O2 requirement overnight (2L to 5L) - bronchoscopy with BAL/TBLB tomorrow 8 AM. - NPO from midnight - hold tonight dose of lovenox. Radiation pneumonitis 05/11/2014 12/26/2015 Overview: 40 mg prednisone daily Immunodeficiency with predominant T-cell defect, unspecified 03/11/2014 12/26/2015 Urgency of micturation 03/04/2014 6 Urinary frequency 03/04/2014 12/26/2015 Arm pain, left 07/06/2013 12/26/2015 Back pain without radiation 07/06/201308/2015 Abnormal finding on imaging 07/06/201308/2015 Elevated sed rate 07/06/2013 12/26/2015 Hyperpigmentation of skin 03/31/20132015 Overview: --resolved --bilateral breast tissue and axilla --order mycolog cream --monitor Diarrhea 03/31/2013 12/26/2015 Overview: - c diff pending Mucositis (ulcerative) due to antineoplastic the rapy 03/24/2013 12/26/2015 Overview: --improved --oxy prn --mouth care measures. Reflux 03/23/2013 12/26/2015 Overview: --improved with protonix Elevated LFTs 03/22/2013 12/26/2015 Overview: --increased AST ALT during chemo, resolved. Excess fluid volume 03/21/2013 12/26/2015 Overview: --diuresis as needed --continue to monitor volume status CINV (chemotherapy-induced nausea and vomiting) 03/17/2013 10/13/2015 Overview: --Resolved --Ativan PRN (none used) Peripheral neuropathy 03/16/2013 12/26/2015 Overview: --gabapentin 300mg TID with increased symptoms, bedtime dose of gabapentin increased to 600mg with improvement reported, continue DVT prophylaxis 03/16/2013 12/26/2015 Overview: --platelet count decreasing, d/c heparin SQ --encourage ambulation Insomnia 03/16/2013 12/26/2015 Overview: --ambien PRN at HS, with relief, but with vivid dreams, ambien d/c --restoril at 30mg PRN at HS with relief, continue Chronic chest pain 03/16/2013 12/26/2015 Overview: --now resolved --since Hodgkin lymphoma diagnosis per patient Hospital discharge follow-up 03/16/201308/2015 Overview: --Patient will need to follow up with Dr. Unger after discharge Tachycardia 03/16/2013 12/26/2015 Overview: --patient taking atenolol 100mg BID at home, now BP running lower, decreased atenolol dose to 50mg BID with hypotension. --increase to 75mg BID, d/t tachycardia(HRs >110 while afebrile), HR now controlled, continue --monitor closely Electrolyte and fluid disorders not elsewhere cl assified 02/16/2013 12/26/2015 DISPOSITION AND FOLLOW-UP 10/27/20122015 Overview: 32 yo female from [place], [place]. Family involved with care, at bedside. plan to discharge patient home - will arrange with case management for post op care as needed - follow up in OPD in 7-10 days Post-op pain 10/27/2012 12/26/2015 Overview: currently well controlled with [employer] REPRESENT[employer]IVE. will start PO pain meds today 10/27. tolerating percocet, pain relatively well controlled. Hodgkin's disease with nodular sclerosis 013 12/26/2015 Overview: Oncology history (per Dr. 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 Hodgkin's disease, unspecified 02/05/2012 0 05/11/2014 Vaginal bleeding 12/26/2015 Overview: --likely from thrombocytopenia. No menses in prior 8 months. Scant amount reported on 03/29 and 03/30, now resolved --monitor bleeding by counting pads --should f/u with her [employer] provider after BMT Premature menopause 12/26/2015 Postmenopausal atrophic vaginitis 12/26/2015 Dyspareunia 12/26/2015 documented as of this encounter (statuses as of 11/13/2021) [facility] History of Past illness Narrative* Problem Noted Date Resolved Date Menorrhagia with regular cycle 03/15/2017 1 03/03/2017 Overview: Added automatically from request for surgery [id number] History of pulmonary embolism 04/25/2016 Neoplastic (malignant) related fatigue 7 01/01/2018 Hidradenitis suppurativa 01/17/2016 018 Vitamin D deficiency 06/09/2015 12/26/2015 HyperCKemia 05/06/2015 12/26/2015 Elevated aldolase level 05/06/2015 12/26/19 16 Chronic pain of both knees 05/06/201512/25 Pain in joint, multiple sites 05/06/2015 Myalgia 05/06/2015 12/26/2015 Fatigue 05/06/2015 12/26/2015 Malaise and fatigue 03/24/2015 12/26/2015 Gastroesophageal reflux disease without esophagi tis 02/23/2015 12/26/2015 Laryngitis 02/23/2015 12/26/2015 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 10/28/2014 12/26/2015 Papanicolaou smear of cervix with low grade squamous intraepithelial lesion (LGSIL) 10/24/2014 12/25/2019 Pain in joint, ankle and foot 09/27/2014 ASCUS favor dysplasia 09/18/2014 12/26/2015 Visit for gynecologic examination 09/07/2014 12/26/2015 Postmenopausal HRT (hormone replacement therapy) 08/18/2014 12/26/2015 Overview: offered Gait abnormality 07/22/2014 12/26/2015 Weakness of both legs 07/22/2014 12/26/2015 Sprain of ankle, left 06/29/2014 12/26/2015 PCP (pneumocystis jiroveci pneumonia) 06/03/2014 12/26/2015 Acute respiratory failure with hypoxemia 015 12/26/2015 Overview: Increased O2 requirement overnight (2L to 5L) - bronchoscopy with BAL/TBLB tomorrow 8 AM. - NPO from midnight - hold tonight dose of lovenox. Radiation pneumonitis 05/11/2014 12/26/2015 Overview: 40 mg prednisone daily Immunodeficiency with predominant T-cell defect, unspecified 03/11/2014 12/26/2015 Urgency of micturation 03/04/2014 6 Urinary frequency 03/04/2014 12/26/2015 Arm pain, left 07/06/2013 12/26/2015 Back pain without radiation 07/06/201308/2015 Abnormal finding on imaging 07/06/201308/2015 Elevated sed rate 07/06/2013 12/26/2015 Hyperpigmentation of skin 03/31/20132015 Overview: --resolved --bilateral breast tissue and axilla --order mycolog cream --monitor Diarrhea 03/31/2013 12/26/2015 Overview: - c diff pending Mucositis (ulcerative) due to antineoplastic the rapy 03/24/2013 12/26/2015 Overview: --improved --oxy prn --mouth care measures. Reflux 03/23/2013 12/26/2015 Overview: --improved with protonix Elevated LFTs 03/22/2013 12/26/2015 Overview: --increased AST ALT during chemo, resolved. Excess fluid volume 03/21/2013 12/26/2015 Overview: --diuresis as needed --continue to monitor volume status CINV (chemotherapy-induced nausea and vomiting) 03/17/2013 10/13/2015 Overview: --Resolved --Ativan PRN (none used) Peripheral neuropathy 03/16/2013 12/26/2015 Overview: --gabapentin 300mg TID with increased symptoms, bedtime dose of gabapentin increased to 600mg with improvement reported, continue DVT prophylaxis 03/16/2013 12/26/2015 Overview: --platelet count decreasing, d/c heparin SQ --encourage ambulation Insomnia 03/16/2013 12/26/2015 Overview: --ambien PRN at HS, with relief, but with vivid dreams, ambien d/c --restoril at 30mg PRN at HS with relief, continue Chronic chest pain 03/16/2013 12/26/2015 Overview: --now resolved --since Hodgkin lymphoma diagnosis per patient Hospital discharge follow-up 03/16/201308/2015 Overview: --Patient will need to follow up with Dr. Unger after discharge Tachycardia 03/16/2013 12/26/2015 Overview: --patient taking atenolol 100mg BID at home, now BP running lower, decreased atenolol dose to 50mg BID with hypotension. --increase to 75mg BID, d/t tachycardia(HRs >110 while afebrile), HR now controlled, continue --monitor closely Electrolyte and fluid disorders not elsewhere cl assified 02/16/2013 12/26/2015 DISPOSITION AND FOLLOW-UP 10/27/20122015 Overview: 32 yo female from [place], [place]. Family involved with care, at bedside. plan to discharge patient home - will arrange with case management for post op care as needed - follow up in OPD in 7-10 days Post-op pain 10/27/2012 12/26/2015 Overview: currently well controlled with [employer] REPRESENT[employer]IVE. will start PO pain meds today 10/27. tolerating percocet, pain relatively well controlled. Hodgkin's disease with nodular sclerosis 013 12/26/2015 Overview: Oncology history (per Dr. 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 Hodgkin's disease, unspecified 02/05/2012 0 05/11/2014 Vaginal bleeding 12/26/2015 Overview: --likely from thrombocytopenia. No menses in prior 8 months. Scant amount reported on 03/29 and 03/30, now resolved --monitor bleeding by counting pads --should f/u with her [employer] provider after BMT Premature menopause 12/26/2015 Postmenopausal atrophic vaginitis 12/26/2015 Dyspareunia 12/26/2015 documented as of this encounter (statuses as of 11/13/2021) [facility] History of Past illness Narrative* Problem Noted Date Resolved Date Menorrhagia with regular cycle 03/15/2017 1 03/03/2017 Overview: Added automatically from request for surgery [id number] History of pulmonary embolism 04/25/2016 Neoplastic (malignant) related fatigue 7 01/01/2018 Hidradenitis suppurativa 01/17/2016 018 Vitamin D deficiency 06/09/2015 12/26/2015 HyperCKemia 05/06/2015 12/26/2015 Elevated aldolase level 05/06/2015 12/26/19 16 Chronic pain of both knees 05/06/201512/25 Pain in joint, multiple sites 05/06/2015 Myalgia 05/06/2015 12/26/2015 Fatigue 05/06/2015 12/26/2015 Malaise and fatigue 03/24/2015 12/26/2015 Gastroesophageal reflux disease without esophagi tis 02/23/2015 12/26/2015 Laryngitis 02/23/2015 12/26/2015 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 10/28/2014 12/26/2015 Papanicolaou smear of cervix with low grade squamous intraepithelial lesion (LGSIL) 10/24/2014 12/25/2019 Pain in joint, ankle and foot 09/27/2014 ASCUS favor dysplasia 09/18/2014 12/26/2015 Visit for gynecologic examination 09/07/2014 12/26/2015 Postmenopausal HRT (hormone replacement therapy) 08/18/2014 12/26/2015 Overview: offered Gait abnormality 07/22/2014 12/26/2015 Weakness of both legs 07/22/2014 12/26/2015 Sprain of ankle, left 06/29/2014 12/26/2015 PCP (pneumocystis jiroveci pneumonia) 06/03/2014 12/26/2015 Acute respiratory failure with hypoxemia 015 12/26/2015 Overview: Increased O2 requirement overnight (2L to 5L) - bronchoscopy with BAL/TBLB tomorrow 8 AM. - NPO from midnight - hold tonight dose of lovenox. Radiation pneumonitis 05/11/2014 12/26/2015 Overview: 40 mg prednisone daily Immunodeficiency with predominant T-cell defect, unspecified 03/11/2014 12/26/2015 Urgency of micturation 03/04/2014 6 Urinary frequency 03/04/2014 12/26/2015 Arm pain, left 07/06/2013 12/26/2015 Back pain without radiation 07/06/201308/2015 Abnormal finding on imaging 07/06/201308/2015 Elevated sed rate 07/06/2013 12/26/2015 Hyperpigmentation of skin 03/31/20132015 Overview: --resolved --bilateral breast tissue and axilla --order mycolog cream --monitor Diarrhea 03/31/2013 12/26/2015 Overview: - c diff pending Mucositis (ulcerative) due to antineoplastic the rapy 03/24/2013 12/26/2015 Overview: --improved --oxy prn --mouth care measures. Reflux 03/23/2013 12/26/2015 Overview: --improved with protonix Elevated LFTs 03/22/2013 12/26/2015 Overview: --increased AST ALT during chemo, resolved. Excess fluid volume 03/21/2013 12/26/2015 Overview: --diuresis as needed --continue to monitor volume status CINV (chemotherapy-induced nausea and vomiting) 03/17/2013 10/13/2015 Overview: --Resolved --Ativan PRN (none used) Peripheral neuropathy 03/16/2013 12/26/2015 Overview: --gabapentin 300mg TID with increased symptoms, bedtime dose of gabapentin increased to 600mg with improvement reported, continue DVT prophylaxis 03/16/2013 12/26/2015 Overview: --platelet count decreasing, d/c heparin SQ --encourage ambulation Insomnia 03/16/2013 12/26/2015 Overview: --ambien PRN at HS, with relief, but with vivid dreams, ambien d/c --restoril at 30mg PRN at HS with relief, continue Chronic chest pain 03/16/2013 12/26/2015 Overview: --now resolved --since Hodgkin lymphoma diagnosis per patient Hospital discharge follow-up 03/16/201308/2015 Overview: --Patient will need to follow up with Dr. Unger after discharge Tachycardia 03/16/2013 12/26/2015 Overview: --patient taking atenolol 100mg BID at home, now BP running lower, decreased atenolol dose to 50mg BID with hypotension. --increase to 75mg BID, d/t tachycardia(HRs >110 while afebrile), HR now controlled, continue --monitor closely Electrolyte and fluid disorders not elsewhere cl assified 02/16/2013 12/26/2015 DISPOSITION AND FOLLOW-UP 10/27/20122015 Overview: 32 yo female from [place], [place]. Family involved with care, at bedside. plan to discharge patient home - will arrange with case management for post op care as needed - follow up in OPD in 7-10 days Post-op pain 10/27/2012 12/26/2015 Overview: currently well controlled with [employer] REPRESENTATIVE. will start PO pain meds today 10/27. tolerating percocet, pain relatively well controlled. Hodgkin's disease with nodular sclerosis 013 12/26/2015 Overview: Oncology history (per Dr. 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 Hodgkin's disease, unspecified 02/05/2012 0 05/11/2014 Vaginal bleeding 12/26/2015 Overview: --likely from thrombocytopenia. No menses in prior 8 months. Scant amount reported on 03/29 and 03/30, now resolved --monitor bleeding by counting pads --should f/u with her [employer] provider after BMT Premature menopause 12/26/2015 Postmenopausal atrophic vaginitis 12/26/2015 Dyspareunia 12/26/2015 documented as of this encounter (statuses as of 11/14/2021) [facility] History of Past illness Narrative* Problem Noted Date Resolved Date Menorrhagia with regular cycle 03/15/2017 1 03/03/2017 Overview: Added automatically from request for surgery [id number] History of pulmonary embolism 04/25/2016 Neoplastic (malignant) related fatigue 7 01/01/2018 Hidradenitis suppurativa 01/17/2016 018 Vitamin D deficiency 06/09/2015 12/26/2015 HyperCKemia 05/06/2015 12/26/2015 Elevated aldolase level 05/06/2015 12/26/19 16 Chronic pain of both knees 05/06/201512/25 Pain in joint, multiple sites 05/06/2015 Myalgia 05/06/2015 12/26/2015 Fatigue 05/06/2015 12/26/2015 Malaise and fatigue 03/24/2015 12/26/2015 Gastroesophageal reflux disease without esophagi tis 02/23/2015 12/26/2015 Laryngitis 02/23/2015 12/26/2015 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 10/28/2014 12/26/2015 Papanicolaou smear of cervix with low grade squamous intraepithelial lesion (LGSIL) 10/24/2014 12/25/2019 Pain in joint, ankle and foot 09/27/2014 ASCUS favor dysplasia 09/18/2014 12/26/2015 Visit for gynecologic examination 09/07/2014 12/26/2015 Postmenopausal HRT (hormone replacement therapy) 08/18/2014 12/26/2015 Overview: offered Gait abnormality 07/22/2014 12/26/2015 Weakness of both legs 07/22/2014 12/26/2015 Sprain of ankle, left 06/29/2014 12/26/2015 PCP (pneumocystis jiroveci pneumonia) 06/03/2014 12/26/2015 Acute respiratory failure with hypoxemia 015 12/26/2015 Overview: Increased O2 requirement overnight (2L to 5L) - bronchoscopy with BAL/TBLB tomorrow 8 AM. - NPO from midnight - hold tonight dose of lovenox. Radiation pneumonitis 05/11/2014 12/26/2015 Overview: 40 mg prednisone daily Immunodeficiency with predominant T-cell defect, unspecified 03/11/2014 12/26/2015 Urgency of micturation 03/04/2014 6 Urinary frequency 03/04/2014 12/26/2015 Arm pain, left 07/06/2013 12/26/2015 Back pain without radiation 07/06/201308/2015 Abnormal finding on imaging 07/06/201308/2015 Elevated sed rate 07/06/2013 12/26/2015 Hyperpigmentation of skin 03/31/20132015 Overview: --resolved --bilateral breast tissue and axilla --order mycolog cream --monitor Diarrhea 03/31/2013 12/26/2015 Overview: - c diff pending Mucositis (ulcerative) due to antineoplastic the rapy 03/24/2013 12/26/2015 Overview: --improved --oxy prn --mouth care measures. Reflux 03/23/2013 12/26/2015 Overview: --improved with protonix Elevated LFTs 03/22/2013 12/26/2015 Overview: --increased AST ALT during chemo, resolved. Excess fluid volume 03/21/2013 12/26/2015 Overview: --diuresis as needed --continue to monitor volume status CINV (chemotherapy-induced nausea and vomiting) 03/17/2013 10/13/2015 Overview: --Resolved --Ativan PRN (none used) Peripheral neuropathy 03/16/2013 12/26/2015 Overview: --gabapentin 300mg TID with increased symptoms, bedtime dose of gabapentin increased to 600mg with improvement reported, continue DVT prophylaxis 03/16/2013 12/26/2015 Overview: --platelet count decreasing, d/c heparin SQ --encourage ambulation Insomnia 03/16/2013 12/26/2015 Overview: --ambien PRN at HS, with relief, but with vivid dreams, ambien d/c --restoril at 30mg PRN at HS with relief, continue Chronic chest pain 03/16/2013 12/26/2015 Overview: --now resolved --since Hodgkin lymphoma diagnosis per patient Hospital discharge follow-up 03/16/201308/2015 Overview: --Patient will need to follow up with Dr. Unger after discharge Tachycardia 03/16/2013 12/26/2015 Overview: --patient taking atenolol 100mg BID at home, now BP running lower, decreased atenolol dose to 50mg BID with hypotension. --increase to 75mg BID, d/t tachycardia(HRs >110 while afebrile), HR now controlled, continue --monitor closely Electrolyte and fluid disorders not elsewhere cl assified 02/16/2013 12/26/2015 DISPOSITION AND FOLLOW-UP 10/27/20122015 Overview: 32 yo female from [place], [place]. Family involved with care, at bedside. plan to discharge patient home - will arrange with case management for post op care as needed - follow up in OPD in 7-10 days Post-op pain 10/27/2012 12/26/2015 Overview: currently well controlled with [employer] SAL[employer] REPRESENTATIVE. will start PO pain meds today 10/27. tolerating percocet, pain relatively well controlled. Hodgkin's disease with nodular sclerosis 013 12/26/2015 Overview: Oncology history (per Dr. 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 Hodgkin's disease, unspecified 02/05/2012 0 05/11/2014 Vaginal bleeding 12/26/2015 Overview: --likely from thrombocytopenia. No menses in prior 8 months. Scant amount reported on 03/29 and 03/30, now resolved --monitor bleeding by counting pads --should f/u with her [employer] [employer] provider after BMT Premature menopause 12/26/2015 Postmenopausal atrophic vaginitis 12/26/2015 Dyspareunia 12/26/2015 documented as of this encounter (statuses as of 11/15/2021) [facility] History of Past illness Narrative* Problem Noted Date Resolved Date Menorrhagia with regular cycle 03/15/2017 1 03/03/2017 Overview: Added automatically from request for surgery [id number] History of pulmonary embolism 04/25/2016 Neoplastic (malignant) related fatigue 7 01/01/2018 Hidradenitis suppurativa 01/17/2016 018 Vitamin D deficiency 06/09/2015 12/26/2015 HyperCKemia 05/06/2015 12/26/2015 Elevated aldolase level 05/06/2015 12/26/19 16 Chronic pain of both knees 05/06/201512/25 Pain in joint, multiple sites 05/06/2015 Myalgia 05/06/2015 12/26/2015 Fatigue 05/06/2015 12/26/2015 Malaise and fatigue 03/24/2015 12/26/2015 Gastroesophageal reflux disease without esophagi tis 02/23/2015 12/26/2015 Laryngitis 02/23/2015 12/26/2015 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 10/28/2014 12/26/2015 Papanicolaou smear of cervix with low grade squamous intraepithelial lesion (LGSIL) 10/24/2014 12/25/2019 Pain in joint, ankle and foot 09/27/2014 ASCUS favor dysplasia 09/18/2014 12/26/2015 Visit for gynecologic examination 09/07/2014 12/26/2015 Postmenopausal HRT (hormone replacement therapy) 08/18/2014 12/26/2015 Overview: offered Gait abnormality 07/22/2014 12/26/2015 Weakness of both legs 07/22/2014 12/26/2015 Sprain of ankle, left 06/29/2014 12/26/2015 PCP (pneumocystis jiroveci pneumonia) 06/03/2014 12/26/2015 Acute respiratory failure with hypoxemia 015 12/26/2015 Overview: Increased O2 requirement overnight (2L to 5L) - bronchoscopy with BAL/TBLB tomorrow 8 AM. - NPO from midnight - hold tonight dose of lovenox. Radiation pneumonitis 05/11/2014 12/26/2015 Overview: 40 mg prednisone daily Immunodeficiency with predominant T-cell defect, unspecified 03/11/2014 12/26/2015 Urgency of micturation 03/04/2014 6 Urinary frequency 03/04/2014 12/26/2015 Arm pain, left 07/06/2013 12/26/2015 Back pain without radiation 07/06/201308/2015 Abnormal finding on imaging 07/06/201308/2015 Elevated sed rate 07/06/2013 12/26/2015 Hyperpigmentation of skin 03/31/20132015 Overview: --resolved --bilateral breast tissue and axilla --order mycolog cream --monitor Diarrhea 03/31/2013 12/26/2015 Overview: - c diff pending Mucositis (ulcerative) due to antineoplastic the rapy 03/24/2013 12/26/2015 Overview: --improved --oxy prn --mouth care measures. Reflux 03/23/2013 12/26/2015 Overview: --improved with protonix Elevated LFTs 03/22/2013 12/26/2015 Overview: --increased AST ALT during chemo, resolved. Excess fluid volume 03/21/2013 12/26/2015 Overview: --diuresis as needed --continue to monitor volume status CINV (chemotherapy-induced nausea and vomiting) 03/17/2013 10/13/2015 Overview: --Resolved --Ativan PRN (none used) Peripheral neuropathy 03/16/2013 12/26/2015 Overview: --gabapentin 300mg TID with increased symptoms, bedtime dose of gabapentin increased to 600mg with improvement reported, continue DVT prophylaxis 03/16/2013 12/26/2015 Overview: --platelet count decreasing, d/c heparin SQ --encourage ambulation Insomnia 03/16/2013 12/26/2015 Overview: --ambien PRN at HS, with relief, but with vivid dreams, ambien d/c --restoril at 30mg PRN at HS with relief, continue Chronic chest pain 03/16/2013 12/26/2015 Overview: --now resolved --since Hodgkin lymphoma diagnosis per patient Hospital discharge follow-up 03/16/201308/2015 Overview: --Patient will need to follow up with Dr. Unger after discharge Tachycardia 03/16/2013 12/26/2015 Overview: --patient taking atenolol 100mg BID at home, now BP running lower, decreased atenolol dose to 50mg BID with hypotension. --increase to 75mg BID, d/t tachycardia(HRs >110 while afebrile), HR now controlled, continue --monitor closely Electrolyte and fluid disorders not elsewhere cl assified 02/16/2013 12/26/2015 DISPOSITION AND FOLLOW-UP 10/27/20122015 Overview: 32 yo female from [place], [place]. Family involved with care, at bedside. plan to discharge patient home - will arrange with case management for post op care as needed - follow up in OPD in 7-10 days Post-op pain 10/27/2012 12/26/2015 Overview: currently well controlled with [employer] REPRESENTATIVE. will start PO pain meds today 10/27. tolerating percocet, pain relatively well controlled. Hodgkin's disease with nodular sclerosis 013 12/26/2015 Overview: Oncology history (per Dr. 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 Hodgkin's disease, unspecified 02/05/2012 0 05/11/2014 Vaginal bleeding 12/26/2015 Overview: --likely from thrombocytopenia. No menses in prior 8 months. Scant amount reported on 03/29 and 03/30, now resolved --monitor bleeding by counting pads --should f/u with her [employer] provider after BMT Premature menopause 12/26/2015 Postmenopausal atrophic vaginitis 12/26/2015 Dyspareunia 12/26/2015 documented as of this encounter (statuses as of 11/15/2021) [facility] History of Past illness Narrative* Problem Noted Date Resolved Date Menorrhagia with regular cycle 03/15/2017 1 03/03/2017 Overview: Added automatically from request for surgery [id number] History of pulmonary embolism 04/25/2016 Neoplastic (malignant) related fatigue 7 01/01/2018 Hidradenitis suppurativa 01/17/2016 018 Vitamin D deficiency 06/09/2015 12/26/2015 HyperCKemia 05/06/2015 12/26/2015 Elevated aldolase level 05/06/2015 12/26/19 16 Chronic pain of both knees 05/06/201512/25 Pain in joint, multiple sites 05/06/2015 Myalgia 05/06/2015 12/26/2015 Fatigue 05/06/2015 12/26/2015 Malaise and fatigue 03/24/2015 12/26/2015 Gastroesophageal reflux disease without esophagi tis 02/23/2015 12/26/2015 Laryngitis 02/23/2015 12/26/2015 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 10/28/2014 12/26/2015 Papanicolaou smear of cervix with low grade squamous intraepithelial lesion (LGSIL) 10/24/2014 12/25/2019 Pain in joint, ankle and foot 09/27/2014 ASCUS favor dysplasia 09/18/2014 12/26/2015 Visit for gynecologic examination 09/07/2014 12/26/2015 Postmenopausal HRT (hormone replacement therapy) 08/18/2014 12/26/2015 Overview: offered Gait abnormality 07/22/2014 12/26/2015 Weakness of both legs 07/22/2014 12/26/2015 Sprain of ankle, left 06/29/2014 12/26/2015 PCP (pneumocystis jiroveci pneumonia) 06/03/2014 12/26/2015 Acute respiratory failure with hypoxemia 015 12/26/2015 Overview: Increased O2 requirement overnight (2L to 5L) - bronchoscopy with BAL/TBLB tomorrow 8 AM. - NPO from midnight - hold tonight dose of lovenox. Radiation pneumonitis 05/11/2014 12/26/2015 Overview: 40 mg prednisone daily Immunodeficiency with predominant T-cell defect, unspecified 03/11/2014 12/26/2015 Urgency of micturation 03/04/2014 6 Urinary frequency 03/04/2014 12/26/2015 Arm pain, left 07/06/2013 12/26/2015 Back pain without radiation 07/06/201308/2015 Abnormal finding on imaging 07/06/201308/2015 Elevated sed rate 07/06/2013 12/26/2015 Hyperpigmentation of skin 03/31/20132015 Overview: --resolved --bilateral breast tissue and axilla --order mycolog cream --monitor Diarrhea 03/31/2013 12/26/2015 Overview: - c diff pending Mucositis (ulcerative) due to antineoplastic the rapy 03/24/2013 12/26/2015 Overview: --improved --oxy prn --mouth care measures. Reflux 03/23/2013 12/26/2015 Overview: --improved with protonix Elevated LFTs 03/22/2013 12/26/2015 Overview: --increased AST ALT during chemo, resolved. Excess fluid volume 03/21/2013 12/26/2015 Overview: --diuresis as needed --continue to monitor volume status CINV (chemotherapy-induced nausea and vomiting) 03/17/2013 10/13/2015 Overview: --Resolved --Ativan PRN (none used) Peripheral neuropathy 03/16/2013 12/26/2015 Overview: --gabapentin 300mg TID with increased symptoms, bedtime dose of gabapentin increased to 600mg with improvement reported, continue DVT prophylaxis 03/16/2013 12/26/2015 Overview: --platelet count decreasing, d/c heparin SQ --encourage ambulation Insomnia 03/16/2013 12/26/2015 Overview: --ambien PRN at HS, with relief, but with vivid dreams, ambien d/c --restoril at 30mg PRN at HS with relief, continue Chronic chest pain 03/16/2013 12/26/2015 Overview: --now resolved --since Hodgkin lymphoma diagnosis per patient Hospital discharge follow-up 03/16/201308/2015 Overview: --Patient will need to follow up with Dr. Unger after discharge Tachycardia 03/16/2013 12/26/2015 Overview: --patient taking atenolol 100mg BID at home, now BP running lower, decreased atenolol dose to 50mg BID with hypotension. --increase to 75mg BID, d/t tachycardia(HRs >110 while afebrile), HR now controlled, continue --monitor closely Electrolyte and fluid disorders not elsewhere cl assified 02/16/2013 12/26/2015 DISPOSITION AND FOLLOW-UP 10/27/20122015 Overview: 32 yo female from [place], [place]. Family involved with care, at bedside. plan to discharge patient home - will arrange with case management for post op care as needed - follow up in OPD in 7-10 days Post-op pain 10/27/2012 12/26/2015 Overview: currently well controlled with [employer] REPRESENTATIVE. will start PO pain meds today 10/27. tolerating percocet, pain relatively well controlled. Hodgkin's disease with nodular sclerosis 013 12/26/2015 Overview: Oncology history (per Dr. 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 Hodgkin's disease, unspecified 02/05/2012 0 05/11/2014 Vaginal bleeding 12/26/2015 Overview: --likely from thrombocytopenia. No menses in prior 8 months. Scant amount reported on 03/29 and 03/30, now resolved --monitor bleeding by counting pads --should f/u with her [employer] provider after BMT Premature menopause 12/26/2015 Postmenopausal atrophic vaginitis 12/26/2015 Dyspareunia 12/26/2015 documented as of this encounter (statuses as of 12/04/2021) [facility] History of Past illness Narrative* Problem Noted Date Resolved Date Menorrhagia with regular cycle 03/15/2017 1 03/03/2017 Overview: Added automatically from request for surgery [id number] History of pulmonary embolism 04/25/2016 Neoplastic (malignant) related fatigue 7 01/01/2018 Hidradenitis suppurativa 01/17/2016 018 Vitamin D deficiency 06/09/2015 12/26/2015 HyperCKemia 05/06/2015 12/26/2015 Elevated aldolase level 05/06/2015 12/26/19 16 Chronic pain of both knees 05/06/201512/25 Pain in joint, multiple sites 05/06/2015 Myalgia 05/06/2015 12/26/2015 Fatigue 05/06/2015 12/26/2015 Malaise and fatigue 03/24/2015 12/26/2015 Gastroesophageal reflux disease without esophagi tis 02/23/2015 12/26/2015 Laryngitis 02/23/2015 12/26/2015 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 10/28/2014 12/26/2015 Papanicolaou smear of cervix with low grade squamous intraepithelial lesion (LGSIL) 10/24/2014 12/25/2019 Pain in joint, ankle and foot 09/27/2014 ASCUS favor dysplasia 09/18/2014 12/26/2015 Visit for gynecologic examination 09/07/2014 12/26/2015 Postmenopausal HRT (hormone replacement therapy) 08/18/2014 12/26/2015 Overview: offered Gait abnormality 07/22/2014 12/26/2015 Weakness of both legs 07/22/2014 12/26/2015 Sprain of ankle, left 06/29/2014 12/26/2015 PCP (pneumocystis jiroveci pneumonia) 06/03/2014 12/26/2015 Acute respiratory failure with hypoxemia 015 12/26/2015 Overview: Increased O2 requirement overnight (2L to 5L) - bronchoscopy with BAL/TBLB tomorrow 8 AM. - NPO from midnight - hold tonight dose of lovenox. Radiation pneumonitis 05/11/2014 12/26/2015 Overview: 40 mg prednisone daily Immunodeficiency with predominant T-cell defect, unspecified 03/11/2014 12/26/2015 Urgency of micturation 03/04/2014 6 Urinary frequency 03/04/2014 12/26/2015 Arm pain, left 07/06/2013 12/26/2015 Back pain without radiation 07/06/201308/2015 Abnormal finding on imaging 07/06/201308/2015 Elevated sed rate 07/06/2013 12/26/2015 Hyperpigmentation of skin 03/31/20132015 Overview: --resolved --bilateral breast tissue and axilla --order mycolog cream --monitor Diarrhea 03/31/2013 12/26/2015 Overview: - c diff pending Mucositis (ulcerative) due to antineoplastic the rapy 03/24/2013 12/26/2015 Overview: --improved --oxy prn --mouth care measures. Reflux 03/23/2013 12/26/2015 Overview: --improved with protonix Elevated LFTs 03/22/2013 12/26/2015 Overview: --increased AST ALT during chemo, resolved. Excess fluid volume 03/21/2013 12/26/2015 Overview: --diuresis as needed --continue to monitor volume status CINV (chemotherapy-induced nausea and vomiting) 03/17/2013 10/13/2015 Overview: --Resolved --Ativan PRN (none used) Peripheral neuropathy 03/16/2013 12/26/2015 Overview: --gabapentin 300mg TID with increased symptoms, bedtime dose of gabapentin increased to 600mg with improvement reported, continue DVT prophylaxis 03/16/2013 12/26/2015 Overview: --platelet count decreasing, d/c heparin SQ --encourage ambulation Insomnia 03/16/2013 12/26/2015 Overview: --ambien PRN at HS, with relief, but with vivid dreams, ambien d/c --restoril at 30mg PRN at HS with relief, continue Chronic chest pain 03/16/2013 12/26/2015 Overview: --now resolved --since Hodgkin lymphoma diagnosis per patient Hospital discharge follow-up 03/16/201308/2015 Overview: --Patient will need to follow up with Dr. Unger after discharge Tachycardia 03/16/2013 12/26/2015 Overview: --patient taking atenolol 100mg BID at home, now BP running lower, decreased atenolol dose to 50mg BID with hypotension. --increase to 75mg BID, d/t tachycardia(HRs >110 while afebrile), HR now controlled, continue --monitor closely Electrolyte and fluid disorders not elsewhere cl assified 02/16/2013 12/26/2015 DISPOSITION AND FOLLOW-UP 10/27/20122015 Overview: 32 yo female from [place], [place]. Family involved with care, at bedside. plan to discharge patient home - will arrange with case management for post op care as needed - follow up in OPD in 7-10 days Post-op pain 10/27/2012 12/26/2015 Overview: currently well controlled with [employer] REPRESENTATIVE. will start PO pain meds today 10/27. tolerating percocet, pain relatively well controlled. Hodgkin's disease with nodular sclerosis 013 12/26/2015 Overview: Oncology history (per Dr. 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 Hodgkin's disease, unspecified 02/05/2012 0 05/11/2014 Vaginal bleeding 12/26/2015 Overview: --likely from thrombocytopenia. No menses in prior 8 months. Scant amount reported on 03/29 and 03/30, now resolved --monitor bleeding by counting pads --should f/u with her [employer] provider after BMT Premature menopause 12/26/2015 Postmenopausal atrophic vaginitis 12/26/2015 Dyspareunia 12/26/2015 documented as of this encounter (statuses as of 12/05/2021) [facility] History of Past illness Narrative* Problem Noted Date Resolved Date Menorrhagia with regular cycle 03/15/2017 1 03/03/2017 Overview: Added automatically from request for surgery [id number] History of pulmonary embolism 04/25/2016 Neoplastic (malignant) related fatigue 7 01/01/2018 Hidradenitis suppurativa 01/17/2016 018 Vitamin D deficiency 06/09/2015 12/26/2015 HyperCKemia 05/06/2015 12/26/2015 Elevated aldolase level 05/06/2015 12/26/19 16 Chronic pain of both knees 05/06/201512/25 Pain in joint, multiple sites 05/06/2015 Myalgia 05/06/2015 12/26/2015 Fatigue 05/06/2015 12/26/2015 Malaise and fatigue 03/24/2015 12/26/2015 Gastroesophageal reflux disease without esophagi tis 02/23/2015 12/26/2015 Laryngitis 02/23/2015 12/26/2015 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 10/28/2014 12/26/2015 Papanicolaou smear of cervix with low grade squamous intraepithelial lesion (LGSIL) 10/24/2014 12/25/2019 Pain in joint, ankle and foot 09/27/2014 ASCUS favor dysplasia 09/18/2014 12/26/2015 Visit for gynecologic examination 09/07/2014 12/26/2015 Postmenopausal HRT (hormone replacement therapy) 08/18/2014 12/26/2015 Overview: offered Gait abnormality 07/22/2014 12/26/2015 Weakness of both legs 07/22/2014 12/26/2015 Sprain of ankle, left 06/29/2014 12/26/2015 PCP (pneumocystis jiroveci pneumonia) 06/03/2014 12/26/2015 Acute respiratory failure with hypoxemia 015 12/26/2015 Overview: Increased O2 requirement overnight (2L to 5L) - bronchoscopy with BAL/TBLB tomorrow 8 AM. - NPO from midnight - hold tonight dose of lovenox. Radiation pneumonitis 05/11/2014 12/26/2015 Overview: 40 mg prednisone daily Immunodeficiency with predominant T-cell defect, unspecified 03/11/2014 12/26/2015 Urgency of micturation 03/04/2014 6 Urinary frequency 03/04/2014 12/26/2015 Arm pain, left 07/06/2013 12/26/2015 Back pain without radiation 07/06/201308/2015 Abnormal finding on imaging 07/06/201308/2015 Elevated sed rate 07/06/2013 12/26/2015 Hyperpigmentation of skin 03/31/20132015 Overview: --resolved --bilateral breast tissue and axilla --order mycolog cream --monitor Diarrhea 03/31/2013 12/26/2015 Overview: - c diff pending Mucositis (ulcerative) due to antineoplastic the rapy 03/24/2013 12/26/2015 Overview: --improved --oxy prn --mouth care measures. Reflux 03/23/2013 12/26/2015 Overview: --improved with protonix Elevated LFTs 03/22/2013 12/26/2015 Overview: --increased AST ALT during chemo, resolved. Excess fluid volume 03/21/2013 12/26/2015 Overview: --diuresis as needed --continue to monitor volume status CINV (chemotherapy-induced nausea and vomiting) 03/17/2013 10/13/2015 Overview: --Resolved --Ativan PRN (none used) Peripheral neuropathy 03/16/2013 12/26/2015 Overview: --gabapentin 300mg TID with increased symptoms, bedtime dose of gabapentin increased to 600mg with improvement reported, continue DVT prophylaxis 03/16/2013 12/26/2015 Overview: --platelet count decreasing, d/c heparin SQ --encourage ambulation Insomnia 03/16/2013 12/26/2015 Overview: --ambien PRN at HS, with relief, but with vivid dreams, ambien d/c --restoril at 30mg PRN at HS with relief, continue Chronic chest pain 03/16/2013 12/26/2015 Overview: --now resolved --since Hodgkin lymphoma diagnosis per patient Hospital discharge follow-up 03/16/201308/2015 Overview: --Patient will need to follow up with Dr. Unger after discharge Tachycardia 03/16/2013 12/26/2015 Overview: --patient taking atenolol 100mg BID at home, now BP running lower, decreased atenolol dose to 50mg BID with hypotension. --increase to 75mg BID, d/t tachycardia(HRs >110 while afebrile), HR now controlled, continue --monitor closely Electrolyte and fluid disorders not elsewhere cl assified 02/16/2013 12/26/2015 DISPOSITION AND FOLLOW-UP 10/27/20122015 Overview: 32 yo female from [place], [place]. Family involved with care, at bedside. plan to discharge patient home - will arrange with case management for post op care as needed - follow up in OPD in 7-10 days Post-op pain 10/27/2012 12/26/2015 Overview: currently well controlled with [employer] REPRESENTATIVE. will start PO pain meds today 10/27. tolerating percocet, pain relatively well controlled. Hodgkin's disease with nodular sclerosis 013 12/26/2015 Overview: Oncology history (per Dr. 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 Hodgkin's disease, unspecified 02/05/2012 0 05/11/2014 Vaginal bleeding 12/26/2015 Overview: --likely from thrombocytopenia. No menses in prior 8 months. Scant amount reported on 03/29 and 03/30, now resolved --monitor bleeding by counting pads --should f/u with her [employer] provider after BMT Premature menopause 12/26/2015 Postmenopausal atrophic vaginitis 12/26/2015 Dyspareunia 12/26/2015 documented as of this encounter (statuses as of 12/06/2021) [facility] History of Past illness Narrative* Problem Noted Date Resolved Date Menorrhagia with regular cycle 03/15/2017 1 03/03/2017 Overview: Added automatically from request for surgery [id number] History of pulmonary embolism 04/25/2016 Neoplastic (malignant) related fatigue 7 01/01/2018 Hidradenitis suppurativa 01/17/2016 018 Vitamin D deficiency 06/09/2015 12/26/2015 HyperCKemia 05/06/2015 12/26/2015 Elevated aldolase level 05/06/2015 12/26/19 16 Chronic pain of both knees 05/06/201512/25 Pain in joint, multiple sites 05/06/2015 Myalgia 05/06/2015 12/26/2015 Fatigue 05/06/2015 12/26/2015 Malaise and fatigue 03/24/2015 12/26/2015 Gastroesophageal reflux disease without esophagi tis 02/23/2015 12/26/2015 Laryngitis 02/23/2015 12/26/2015 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 10/28/2014 12/26/2015 Papanicolaou smear of cervix with low grade squamous intraepithelial lesion (LGSIL) 10/24/2014 12/25/2019 Pain in joint, ankle and foot 09/27/2014 ASCUS favor dysplasia 09/18/2014 12/26/2015 Visit for gynecologic examination 09/07/2014 12/26/2015 Postmenopausal HRT (hormone replacement therapy) 08/18/2014 12/26/2015 Overview: offered Gait abnormality 07/22/2014 12/26/2015 Weakness of both legs 07/22/2014 12/26/2015 Sprain of ankle, left 06/29/2014 12/26/2015 PCP (pneumocystis jiroveci pneumonia) 06/03/2014 12/26/2015 Acute respiratory failure with hypoxemia 015 12/26/2015 Overview: Increased O2 requirement overnight (2L to 5L) - bronchoscopy with BAL/TBLB tomorrow 8 AM. - NPO from midnight - hold tonight dose of lovenox. Radiation pneumonitis 05/11/2014 12/26/2015 Overview: 40 mg prednisone daily Immunodeficiency with predominant T-cell defect, unspecified 03/11/2014 12/26/2015 Urgency of micturation 03/04/2014 6 Urinary frequency 03/04/2014 12/26/2015 Arm pain, left 07/06/2013 12/26/2015 Back pain without radiation 07/06/201308/2015 Abnormal finding on imaging 07/06/201308/2015 Elevated sed rate 07/06/2013 12/26/2015 Hyperpigmentation of skin 03/31/20132015 Overview: --resolved --bilateral breast tissue and axilla --order mycolog cream --monitor Diarrhea 03/31/2013 12/26/2015 Overview: - c diff pending Mucositis (ulcerative) due to antineoplastic the rapy 03/24/2013 12/26/2015 Overview: --improved --oxy prn --mouth care measures. Reflux 03/23/2013 12/26/2015 Overview: --improved with protonix Elevated LFTs 03/22/2013 12/26/2015 Overview: --increased AST ALT during chemo, resolved. Excess fluid volume 03/21/2013 12/26/2015 Overview: --diuresis as needed --continue to monitor volume status CINV (chemotherapy-induced nausea and vomiting) 03/17/2013 10/13/2015 Overview: --Resolved --Ativan PRN (none used) Peripheral neuropathy 03/16/2013 12/26/2015 Overview: --gabapentin 300mg TID with increased symptoms, bedtime dose of gabapentin increased to 600mg with improvement reported, continue DVT prophylaxis 03/16/2013 12/26/2015 Overview: --platelet count decreasing, d/c heparin SQ --encourage ambulation Insomnia 03/16/2013 12/26/2015 Overview: --ambien PRN at HS, with relief, but with vivid dreams, ambien d/c --restoril at 30mg PRN at HS with relief, continue Chronic chest pain 03/16/2013 12/26/2015 Overview: --now resolved --since Hodgkin lymphoma diagnosis per patient Hospital discharge follow-up 03/16/201308/2015 Overview: --Patient will need to follow up with Dr. Unger after discharge Tachycardia 03/16/2013 12/26/2015 Overview: --patient taking atenolol 100mg BID at home, now BP running lower, decreased atenolol dose to 50mg BID with hypotension. --increase to 75mg BID, d/t tachycardia(HRs >110 while afebrile), HR now controlled, continue --monitor closely Electrolyte and fluid disorders not elsewhere cl assified 02/16/2013 12/26/2015 DISPOSITION AND FOLLOW-UP 10/27/20122015 Overview: 32 yo female from [place], [place]. Family involved with care, at bedside. plan to discharge patient home - will arrange with case management for post op care as needed - follow up in OPD in 7-10 days Post-op pain 10/27/2012 12/26/2015 Overview: currently well controlled with [employer] REPRESENTATIVE. will start PO pain meds today 10/27. tolerating percocet, pain relatively well controlled. Hodgkin's disease with nodular sclerosis 013 12/26/2015 Overview: Oncology history (per Dr. 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 Hodgkin's disease, unspecified 02/05/2012 0 05/11/2014 Vaginal bleeding 12/26/2015 Overview: --likely from thrombocytopenia. No menses in prior 8 months. Scant amount reported on 03/29 and 03/30, now resolved --monitor bleeding by counting pads --should f/u with her [employer] provider after BMT Premature menopause 12/26/2015 Postmenopausal atrophic vaginitis 12/26/2015 Dyspareunia 12/26/2015 documented as of this encounter (statuses as of 12/07/2021) [facility] History of Past illness Narrative* Problem Noted Date Resolved Date Menorrhagia with regular cycle 03/15/2017 1 03/03/2017 Overview: Added automatically from request for surgery [id number] History of pulmonary embolism 04/25/2016 Neoplastic (malignant) related fatigue 7 01/01/2018 Hidradenitis suppurativa 01/17/2016 018 Vitamin D deficiency 06/09/2015 12/26/2015 HyperCKemia 05/06/2015 12/26/2015 Elevated aldolase level 05/06/2015 12/26/19 16 Chronic pain of both knees 05/06/201512/25 Pain in joint, multiple sites 05/06/2015 Myalgia 05/06/2015 12/26/2015 Fatigue 05/06/2015 12/26/2015 Malaise and fatigue 03/24/2015 12/26/2015 Gastroesophageal reflux disease without esophagi tis 02/23/2015 12/26/2015 Laryngitis 02/23/2015 12/26/2015 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 10/28/2014 12/26/2015 Papanicolaou smear of cervix with low grade squamous intraepithelial lesion (LGSIL) 10/24/2014 12/25/2019 Pain in joint, ankle and foot 09/27/2014 ASCUS favor dysplasia 09/18/2014 12/26/2015 Visit for gynecologic examination 09/07/2014 12/26/2015 Postmenopausal HRT (hormone replacement therapy) 08/18/2014 12/26/2015 Overview: offered Gait abnormality 07/22/2014 12/26/2015 Weakness of both legs 07/22/2014 12/26/2015 Sprain of ankle, left 06/29/2014 12/26/2015 PCP (pneumocystis jiroveci pneumonia) 06/03/2014 12/26/2015 Acute respiratory failure with hypoxemia 015 12/26/2015 Overview: Increased O2 requirement overnight (2L to 5L) - bronchoscopy with BAL/TBLB tomorrow 8 AM. - NPO from midnight - hold tonight dose of lovenox. Radiation pneumonitis 05/11/2014 12/26/2015 Overview: 40 mg prednisone daily Immunodeficiency with predominant T-cell defect, unspecified 03/11/2014 12/26/2015 Urgency of micturation 03/04/2014 6 Urinary frequency 03/04/2014 12/26/2015 Arm pain, left 07/06/2013 12/26/2015 Back pain without radiation 07/06/201308/2015 Abnormal finding on imaging 07/06/201308/2015 Elevated sed rate 07/06/2013 12/26/2015 Hyperpigmentation of skin 03/31/20132015 Overview: --resolved --bilateral breast tissue and axilla --order mycolog cream --monitor Diarrhea 03/31/2013 12/26/2015 Overview: - c diff pending Mucositis (ulcerative) due to antineoplastic the rapy 03/24/2013 12/26/2015 Overview: --improved --oxy prn --mouth care measures. Reflux 03/23/2013 12/26/2015 Overview: --improved with protonix Elevated LFTs 03/22/2013 12/26/2015 Overview: --increased AST ALT during chemo, resolved. Excess fluid volume 03/21/2013 12/26/2015 Overview: --diuresis as needed --continue to monitor volume status CINV (chemotherapy-induced nausea and vomiting) 03/17/2013 10/13/2015 Overview: --Resolved --Ativan PRN (none used) Peripheral neuropathy 03/16/2013 12/26/2015 Overview: --gabapentin 300mg TID with increased symptoms, bedtime dose of gabapentin increased to 600mg with improvement reported, continue DVT prophylaxis 03/16/2013 12/26/2015 Overview: --platelet count decreasing, d/c heparin SQ --encourage ambulation Insomnia 03/16/2013 12/26/2015 Overview: --ambien PRN at HS, with relief, but with vivid dreams, jeffien d/c --restoril at 30mg PRN at HS with relief, continue Chronic chest pain 03/16/2013 12/26/2015 Overview: --now resolved --since Hodgkin lymphoma diagnosis per patient Hospital discharge follow-up 03/16/201308/2015 Overview: --Patient will need to follow up with Dr. Unger after discharge Tachycardia 03/16/2013 12/26/2015 Overview: --patient taking atenolol 100mg BID at home, now BP running lower, decreased atenolol dose to 50mg BID with hypotension. --increase to 75mg BID, d/t tachycardia(HRs >110 while afebrile), HR now controlled, continue --monitor closely Electrolyte and fluid disorders not elsewhere cl assified 02/16/2013 12/26/2015 DISPOSITION AND FOLLOW-UP 10/27/20122015 Overview: 32 yo female from [place], [place]. Family involved with care, at bedside. plan to discharge patient home - will arrange with case management for post op care as needed - follow up in OPD in 7-10 days Post-op pain 10/27/2012 12/26/2015 Overview: currently well controlled with [employer] REPRESENT[employer]IVE. will start PO pain meds today 10/27. tolerating percocet, pain relatively well controlled. Hodgkin's disease with nodular sclerosis 013 12/26/2015 Overview: Oncology history (per Dr. 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 Hodgkin's disease, unspecified 02/05/2012 0 05/11/2014 Vaginal bleeding 12/26/2015 Overview: --likely from thrombocytopenia. No menses in prior 8 months. Scant amount reported on 03/29 and 03/30, now resolved --monitor bleeding by counting pads --should f/u with her [employer] provider after BMT Premature menopause 12/26/2015 Postmenopausal atrophic vaginitis 12/26/2015 Dyspareunia 12/26/2015 documented as of this encounter (statuses as of 12/12/2021) [facility] History of Past illness Narrative* Problem Noted Date Resolved Date Menorrhagia with regular cycle 03/15/2017 1 03/03/2017 Overview: Added automatically from request for surgery [id number] History of pulmonary embolism 04/25/2016 Neoplastic (malignant) related fatigue 7 01/01/2018 Hidradenitis suppurativa 01/17/2016 018 Vitamin D deficiency 06/09/2015 12/26/2015 HyperCKemia 05/06/2015 12/26/2015 Elevated aldolase level 05/06/2015 12/26/19 16 Chronic pain of both knees 05/06/201512/25 Pain in joint, multiple sites 05/06/2015 Myalgia 05/06/2015 12/26/2015 Fatigue 05/06/2015 12/26/2015 Malaise and fatigue 03/24/2015 12/26/2015 Gastroesophageal reflux disease without esophagi tis 02/23/2015 12/26/2015 Laryngitis 02/23/2015 12/26/2015 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 10/28/2014 12/26/2015 Papanicolaou smear of cervix with low grade squamous intraepithelial lesion (LGSIL) 10/24/2014 12/25/2019 Pain in joint, ankle and foot 09/27/2014 ASCUS favor dysplasia 09/18/2014 12/26/2015 Visit for gynecologic examination 09/07/2014 12/26/2015 Postmenopausal HRT (hormone replacement therapy) 08/18/2014 12/26/2015 Overview: offered Gait abnormality 07/22/2014 12/26/2015 Weakness of both legs 07/22/2014 12/26/2015 Sprain of ankle, left 06/29/2014 12/26/2015 PCP (pneumocystis jiroveci pneumonia) 06/03/2014 12/26/2015 Acute respiratory failure with hypoxemia 015 12/26/2015 Overview: Increased O2 requirement overnight (2L to 5L) - bronchoscopy with BAL/TBLB tomorrow 8 AM. - NPO from midnight - hold tonight dose of lovenox. Radiation pneumonitis 05/11/2014 12/26/2015 Overview: 40 mg prednisone daily Immunodeficiency with predominant T-cell defect, unspecified 03/11/2014 12/26/2015 Urgency of micturation 03/04/2014 6 Urinary frequency 03/04/2014 12/26/2015 Arm pain, left 07/06/2013 12/26/2015 Back pain without radiation 07/06/201308/2015 Abnormal finding on imaging 07/06/201308/2015 Elevated sed rate 07/06/2013 12/26/2015 Hyperpigmentation of skin 03/31/20132015 Overview: --resolved --bilateral breast tissue and axilla --order mycolog cream --monitor Diarrhea 03/31/2013 12/26/2015 Overview: - c diff pending Mucositis (ulcerative) due to antineoplastic the rapy 03/24/2013 12/26/2015 Overview: --improved --oxy prn --mouth care measures. Reflux 03/23/2013 12/26/2015 Overview: --improved with protonix Elevated LFTs 03/22/2013 12/26/2015 Overview: --increased AST ALT during chemo, resolved. Excess fluid volume 03/21/2013 12/26/2015 Overview: --diuresis as needed --continue to monitor volume status CINV (chemotherapy-induced nausea and vomiting) 03/17/2013 10/13/2015 Overview: --Resolved --Ativan PRN (none used) Peripheral neuropathy 03/16/2013 12/26/2015 Overview: --gabapentin 300mg TID with increased symptoms, bedtime dose of gabapentin increased to 600mg with improvement reported, continue DVT prophylaxis 03/16/2013 12/26/2015 Overview: --platelet count decreasing, d/c heparin SQ --encourage ambulation Insomnia 03/16/2013 12/26/2015 Overview: --ambien PRN at HS, with relief, but with vivid dreams, ambien d/c --restoril at 30mg PRN at HS with relief, continue Chronic chest pain 03/16/2013 12/26/2015 Overview: --now resolved --since Hodgkin lymphoma diagnosis per patient Hospital discharge follow-up 03/16/201308/2015 Overview: --Patient will need to follow up with Dr. Unger after discharge Tachycardia 03/16/2013 12/26/2015 Overview: --patient taking atenolol 100mg BID at home, now BP running lower, decreased atenolol dose to 50mg BID with hypotension. --increase to 75mg BID, d/t tachycardia(HRs >110 while afebrile), HR now controlled, continue --monitor closely Electrolyte and fluid disorders not elsewhere cl assified 02/16/2013 12/26/2015 DISPOSITION AND FOLLOW-UP 10/27/20122015 Overview: 32 yo female from [place], [place]. Family involved with care, at bedside. plan to discharge patient home - will arrange with case management for post op care as needed - follow up in OPD in 7-10 days Post-op pain 10/27/2012 12/26/2015 Overview: currently well controlled with [employer] REPRESENTATIVE. will start PO pain meds today 10/27. tolerating percocet, pain relatively well controlled. Hodgkin's disease with nodular sclerosis 013 12/26/2015 Overview: Oncology history (per Dr. 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 Hodgkin's disease, unspecified 02/05/2012 0 05/11/2014 Vaginal bleeding 12/26/2015 Overview: --likely from thrombocytopenia. No menses in prior 8 months. Scant amount reported on 03/29 and 03/30, now resolved --monitor bleeding by counting pads --should f/u with her [employer] provider after BMT Premature menopause 12/26/2015 Postmenopausal atrophic vaginitis 12/26/2015 Dyspareunia 12/26/2015 documented as of this encounter (statuses as of 12/18/2021) [facility] History of Past illness Narrative* Problem Noted Date Resolved Date Menorrhagia with regular cycle 03/15/2017 1 03/03/2017 Overview: Added automatically from request for surgery [id number] History of pulmonary embolism 04/25/2016 Neoplastic (malignant) related fatigue 7 01/01/2018 Hidradenitis suppurativa 01/17/2016 018 Vitamin D deficiency 06/09/2015 12/26/2015 HyperCKemia 05/06/2015 12/26/2015 Elevated aldolase level 05/06/2015 12/26/19 16 Chronic pain of both knees 05/06/201512/25 Pain in joint, multiple sites 05/06/2015 Myalgia 05/06/2015 12/26/2015 Fatigue 05/06/2015 12/26/2015 Malaise and fatigue 03/24/2015 12/26/2015 Gastroesophageal reflux disease without esophagi tis 02/23/2015 12/26/2015 Laryngitis 02/23/2015 12/26/2015 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 10/28/2014 12/26/2015 Papanicolaou smear of cervix with low grade squamous intraepithelial lesion (LGSIL) 10/24/2014 12/25/2019 Pain in joint, ankle and foot 09/27/2014 ASCUS favor dysplasia 09/18/2014 12/26/2015 Visit for gynecologic examination 09/07/2014 12/26/2015 Postmenopausal HRT (hormone replacement therapy) 08/18/2014 12/26/2015 Overview: offered Gait abnormality 07/22/2014 12/26/2015 Weakness of both legs 07/22/2014 12/26/2015 Sprain of ankle, left 06/29/2014 12/26/2015 PCP (pneumocystis jiroveci pneumonia) 06/03/2014 12/26/2015 Acute respiratory failure with hypoxemia 015 12/26/2015 Overview: Increased O2 requirement overnight (2L to 5L) - bronchoscopy with BAL/TBLB tomorrow 8 AM. - NPO from midnight - hold tonight dose of lovenox. Radiation pneumonitis 05/11/2014 12/26/2015 Overview: 40 mg prednisone daily Immunodeficiency with predominant T-cell defect, unspecified 03/11/2014 12/26/2015 Urgency of micturation 03/04/2014 6 Urinary frequency 03/04/2014 12/26/2015 Arm pain, left 07/06/2013 12/26/2015 Back pain without radiation 07/06/201308/2015 Abnormal finding on imaging 07/06/201308/2015 Elevated sed rate 07/06/2013 12/26/2015 Hyperpigmentation of skin 03/31/20132015 Overview: --resolved --bilateral breast tissue and axilla --order mycolog cream --monitor Diarrhea 03/31/2013 12/26/2015 Overview: - c diff pending Mucositis (ulcerative) due to antineoplastic the rapy 03/24/2013 12/26/2015 Overview: --improved --oxy prn --mouth care measures. Reflux 03/23/2013 12/26/2015 Overview: --improved with protonix Elevated LFTs 03/22/2013 12/26/2015 Overview: --increased AST ALT during chemo, resolved. Excess fluid volume 03/21/2013 12/26/2015 Overview: --diuresis as needed --continue to monitor volume status CINV (chemotherapy-induced nausea and vomiting) 03/17/2013 10/13/2015 Overview: --Resolved --Ativan PRN (none used) Peripheral neuropathy 03/16/2013 12/26/2015 Overview: --gabapentin 300mg TID with increased symptoms, bedtime dose of gabapentin increased to 600mg with improvement reported, continue DVT prophylaxis 03/16/2013 12/26/2015 Overview: --platelet count decreasing, d/c heparin SQ --encourage ambulation Insomnia 03/16/2013 12/26/2015 Overview: --ambien PRN at HS, with relief, but with vivid dreams, ambien d/c --restoril at 30mg PRN at HS with relief, continue Chronic chest pain 03/16/2013 12/26/2015 Overview: --now resolved --since Hodgkin lymphoma diagnosis per patient Hospital discharge follow-up 03/16/201308/2015 Overview: --Patient will need to follow up with Dr. Unger after discharge Tachycardia 03/16/2013 12/26/2015 Overview: --patient taking atenolol 100mg BID at home, now BP running lower, decreased atenolol dose to 50mg BID with hypotension. --increase to 75mg BID, d/t tachycardia(HRs >110 while afebrile), HR now controlled, continue --monitor closely Electrolyte and fluid disorders not elsewhere cl assified 02/16/2013 12/26/2015 DISPOSITION AND FOLLOW-UP 10/27/20122015 Overview: 32 yo female from [place], [place]. Family involved with care, at bedside. plan to discharge patient home - will arrange with case management for post op care as needed - follow up in OPD in 7-10 days Post-op pain 10/27/2012 12/26/2015 Overview: currently well controlled with [employer] REPRESENTATIVE. will start PO pain meds today 10/27. tolerating percocet, pain relatively well controlled. Hodgkin's disease with nodular sclerosis 013 12/26/2015 Overview: Oncology history (per Dr. 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 Hodgkin's disease, unspecified 02/05/2012 0 05/11/2014 Vaginal bleeding 12/26/2015 Overview: --likely from thrombocytopenia. No menses in prior 8 months. Scant amount reported on 03/29 and 03/30, now resolved --monitor bleeding by counting pads --should f/u with her [employer] provider after BMT Premature menopause 12/26/2015 Postmenopausal atrophic vaginitis 12/26/2015 Dyspareunia 12/26/2015 documented as of this encounter (statuses as of 12/19/2021) [facility] History of Past illness Narrative* Problem Noted Date Resolved Date Menorrhagia with regular cycle 03/15/2017 1 03/03/2017 Overview: Added automatically from request for surgery [id number] History of pulmonary embolism 04/25/2016 Neoplastic (malignant) related fatigue 7 01/01/2018 Hidradenitis suppurativa 01/17/2016 018 Vitamin D deficiency 06/09/2015 12/26/2015 HyperCKemia 05/06/2015 12/26/2015 Elevated aldolase level 05/06/2015 12/26/19 16 Chronic pain of both knees 05/06/201512/25 Pain in joint, multiple sites 05/06/2015 Myalgia 05/06/2015 12/26/2015 Fatigue 05/06/2015 12/26/2015 Malaise and fatigue 03/24/2015 12/26/2015 Gastroesophageal reflux disease without esophagi tis 02/23/2015 12/26/2015 Laryngitis 02/23/2015 12/26/2015 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 10/28/2014 12/26/2015 Papanicolaou smear of cervix with low grade squamous intraepithelial lesion (LGSIL) 10/24/2014 12/25/2019 Pain in joint, ankle and foot 09/27/2014 ASCUS favor dysplasia 09/18/2014 12/26/2015 Visit for gynecologic examination 09/07/2014 12/26/2015 Postmenopausal HRT (hormone replacement therapy) 08/18/2014 12/26/2015 Overview: offered Gait abnormality 07/22/2014 12/26/2015 Weakness of both legs 07/22/2014 12/26/2015 Sprain of ankle, left 06/29/2014 12/26/2015 PCP (pneumocystis jiroveci pneumonia) 06/03/2014 12/26/2015 Acute respiratory failure with hypoxemia 015 12/26/2015 Overview: Increased O2 requirement overnight (2L to 5L) - bronchoscopy with BAL/TBLB tomorrow 8 AM. - NPO from midnight - hold tonight dose of lovenox. Radiation pneumonitis 05/11/2014 12/26/2015 Overview: 40 mg prednisone daily Immunodeficiency with predominant T-cell defect, unspecified 03/11/2014 12/26/2015 Urgency of micturation 03/04/2014 6 Urinary frequency 03/04/2014 12/26/2015 Arm pain, left 07/06/2013 12/26/2015 Back pain without radiation 07/06/201308/2015 Abnormal finding on imaging 07/06/201308/2015 Elevated sed rate 07/06/2013 12/26/2015 Hyperpigmentation of skin 03/31/20132015 Overview: --resolved --bilateral breast tissue and axilla --order mycolog cream --monitor Diarrhea 03/31/2013 12/26/2015 Overview: - c diff pending Mucositis (ulcerative) due to antineoplastic the rapy 03/24/2013 12/26/2015 Overview: --improved --oxy prn --mouth care measures. Reflux 03/23/2013 12/26/2015 Overview: --improved with protonix Elevated LFTs 03/22/2013 12/26/2015 Overview: --increased AST ALT during chemo, resolved. Excess fluid volume 03/21/2013 12/26/2015 Overview: --diuresis as needed --continue to monitor volume status CINV (chemotherapy-induced nausea and vomiting) 03/17/2013 10/13/2015 Overview: --Resolved --Ativan PRN (none used) Peripheral neuropathy 03/16/2013 12/26/2015 Overview: --gabapentin 300mg TID with increased symptoms, bedtime dose of gabapentin increased to 600mg with improvement reported, continue DVT prophylaxis 03/16/2013 12/26/2015 Overview: --platelet count decreasing, d/c heparin SQ --encourage ambulation Insomnia 03/16/2013 12/26/2015 Overview: --ambien PRN at HS, with relief, but with vivid dreams, ambien d/c --restoril at 30mg PRN at HS with relief, continue Chronic chest pain 03/16/2013 12/26/2015 Overview: --now resolved --since Hodgkin lymphoma diagnosis per patient Hospital discharge follow-up 03/16/201308/2015 Overview: --Patient will need to follow up with Dr. Unger after discharge Tachycardia 03/16/2013 12/26/2015 Overview: --patient taking atenolol 100mg BID at home, now BP running lower, decreased atenolol dose to 50mg BID with hypotension. --increase to 75mg BID, d/t tachycardia(HRs >110 while afebrile), HR now controlled, continue --monitor closely Electrolyte and fluid disorders not elsewhere cl assified 02/16/2013 12/26/2015 DISPOSITION AND FOLLOW-UP 10/27/20122015 Overview: 32 yo female from [place], [place]. Family involved with care, at bedside. plan to discharge patient home - will arrange with case management for post op care as needed - follow up in OPD in 7-10 days Post-op pain 10/27/2012 12/26/2015 Overview: currently well controlled with [employer] REPRESENTATIVE. will start PO pain meds today 10/27. tolerating percocet, pain relatively well controlled. Hodgkin's disease with nodular sclerosis 013 12/26/2015 Overview: Oncology history (per Dr. 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 Hodgkin's disease, unspecified 02/05/2012 0 05/11/2014 Vaginal bleeding 12/26/2015 Overview: --likely from thrombocytopenia. No menses in prior 8 months. Scant amount reported on 03/29 and 03/30, now resolved --monitor bleeding by counting pads --should f/u with her [employer] provider after BMT Premature menopause 12/26/2015 Postmenopausal atrophic vaginitis 12/26/2015 Dyspareunia 12/26/2015 documented as of this encounter (statuses as of 12/27/2021) [facility] History of Past illness Narrative* Problem Noted Date Resolved Date Menorrhagia with regular cycle 03/15/2017 1 03/03/2017 Overview: Added automatically from request for surgery [id number] History of pulmonary embolism 04/25/2016 Neoplastic (malignant) related fatigue 7 01/01/2018 Hidradenitis suppurativa 01/17/2016 018 Vitamin D deficiency 06/09/2015 12/26/2015 HyperCKemia 05/06/2015 12/26/2015 Elevated aldolase level 05/06/2015 12/26/19 16 Chronic pain of both knees 05/06/201512/25 Pain in joint, multiple sites 05/06/2015 Myalgia 05/06/2015 12/26/2015 Fatigue 05/06/2015 12/26/2015 Malaise and fatigue 03/24/2015 12/26/2015 Gastroesophageal reflux disease without esophagi tis 02/23/2015 12/26/2015 Laryngitis 02/23/2015 12/26/2015 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 10/28/2014 12/26/2015 Papanicolaou smear of cervix with low grade squamous intraepithelial lesion (LGSIL) 10/24/2014 12/25/2019 Pain in joint, ankle and foot 09/27/2014 ASCUS favor dysplasia 09/18/2014 12/26/2015 Visit for gynecologic examination 09/07/2014 12/26/2015 Postmenopausal HRT (hormone replacement therapy) 08/18/2014 12/26/2015 Overview: offered Gait abnormality 07/22/2014 12/26/2015 Weakness of both legs 07/22/2014 12/26/2015 Sprain of ankle, left 06/29/2014 12/26/2015 PCP (pneumocystis jiroveci pneumonia) 06/03/2014 12/26/2015 Acute respiratory failure with hypoxemia 015 12/26/2015 Overview: Increased O2 requirement overnight (2L to 5L) - bronchoscopy with BAL/TBLB tomorrow 8 AM. - NPO from midnight - hold tonight dose of lovenox. Radiation pneumonitis 05/11/2014 12/26/2015 Overview: 40 mg prednisone daily Immunodeficiency with predominant T-cell defect, unspecified 03/11/2014 12/26/2015 Urgency of micturation 03/04/2014 6 Urinary frequency 03/04/2014 12/26/2015 Arm pain, left 07/06/2013 12/26/2015 Back pain without radiation 07/06/201308/2015 Abnormal finding on imaging 07/06/201308/2015 Elevated sed rate 07/06/2013 12/26/2015 Hyperpigmentation of skin 03/31/20132015 Overview: --resolved --bilateral breast tissue and axilla --order mycolog cream --monitor Diarrhea 03/31/2013 12/26/2015 Overview: - c diff pending Mucositis (ulcerative) due to antineoplastic the rapy 03/24/2013 12/26/2015 Overview: --improved --oxy prn --mouth care measures. Reflux 03/23/2013 12/26/2015 Overview: --improved with protonix Elevated LFTs 03/22/2013 12/26/2015 Overview: --increased AST ALT during chemo, resolved. Excess fluid volume 03/21/2013 12/26/2015 Overview: --diuresis as needed --continue to monitor volume status CINV (chemotherapy-induced nausea and vomiting) 03/17/2013 10/13/2015 Overview: --Resolved --Ativan PRN (none used) Peripheral neuropathy 03/16/2013 12/26/2015 Overview: --gabapentin 300mg TID with increased symptoms, bedtime dose of gabapentin increased to 600mg with improvement reported, continue DVT prophylaxis 03/16/2013 12/26/2015 Overview: --platelet count decreasing, d/c heparin SQ --encourage ambulation Insomnia 03/16/2013 12/26/2015 Overview: --ambien PRN at HS, with relief, but with vivid dreams, ambien d/c --restoril at 30mg PRN at HS with relief, continue Chronic chest pain 03/16/2013 12/26/2015 Overview: --now resolved --since Hodgkin lymphoma diagnosis per patient Hospital discharge follow-up 03/16/201308/2015 Overview: --Patient will need to follow up with Dr. Unger after discharge Tachycardia 03/16/2013 12/26/2015 Overview: --patient taking atenolol 100mg BID at home, now BP running lower, decreased atenolol dose to 50mg BID with hypotension. --increase to 75mg BID, d/t tachycardia(HRs >110 while afebrile), HR now controlled, continue --monitor closely Electrolyte and fluid disorders not elsewhere cl assified 02/16/2013 12/26/2015 DISPOSITION AND FOLLOW-UP 10/27/20122015 Overview: 32 yo female from [place], [place]. Family involved with care, at bedside. plan to discharge patient home - will arrange with case management for post op care as needed - follow up in OPD in 7-10 days Post-op pain 10/27/2012 12/26/2015 Overview: currently well controlled with [employer] REPRESENT[employer]IVE. will start PO pain meds today 10/27. tolerating percocet, pain relatively well controlled. Hodgkin's disease with nodular sclerosis 013 12/26/2015 Overview: Oncology history (per Dr. 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 Hodgkin's disease, unspecified 02/05/2012 0 05/11/2014 Vaginal bleeding 12/26/2015 Overview: --likely from thrombocytopenia. No menses in prior 8 months. Scant amount reported on 03/29 and 03/30, now resolved --monitor bleeding by counting pads --should f/u with her [employer] provider after BMT Premature menopause 12/26/2015 Postmenopausal atrophic vaginitis 12/26/2015 Dyspareunia 12/26/2015 documented as of this encounter (statuses as of 12/31/2021) [facility] History of Past illness Narrative* Problem Noted Date Resolved Date Menorrhagia with regular cycle 03/15/2017 1 03/03/2017 Overview: Added automatically from request for surgery [id number] History of pulmonary embolism 04/25/2016 Neoplastic (malignant) related fatigue 7 01/01/2018 Hidradenitis suppurativa 01/17/2016 018 Vitamin D deficiency 06/09/2015 12/26/2015 HyperCKemia 05/06/2015 12/26/2015 Elevated aldolase level 05/06/2015 12/26/19 16 Chronic pain of both knees 05/06/201512/25 Pain in joint, multiple sites 05/06/2015 Myalgia 05/06/2015 12/26/2015 Fatigue 05/06/2015 12/26/2015 Malaise and fatigue 03/24/2015 12/26/2015 Gastroesophageal reflux disease without esophagi tis 02/23/2015 12/26/2015 Laryngitis 02/23/2015 12/26/2015 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 10/28/2014 12/26/2015 Papanicolaou smear of cervix with low grade squamous intraepithelial lesion (LGSIL) 10/24/2014 12/25/2019 Pain in joint, ankle and foot 09/27/2014 ASCUS favor dysplasia 09/18/2014 12/26/2015 Visit for gynecologic examination 09/07/2014 12/26/2015 Postmenopausal HRT (hormone replacement therapy) 08/18/2014 12/26/2015 Overview: offered Gait abnormality 07/22/2014 12/26/2015 Weakness of both legs 07/22/2014 12/26/2015 Sprain of ankle, left 06/29/2014 12/26/2015 PCP (pneumocystis jiroveci pneumonia) 06/03/2014 12/26/2015 Acute respiratory failure with hypoxemia 015 12/26/2015 Overview: Increased O2 requirement overnight (2L to 5L) - bronchoscopy with BAL/TBLB tomorrow 8 AM. - NPO from midnight - hold tonight dose of lovenox. Radiation pneumonitis 05/11/2014 12/26/2015 Overview: 40 mg prednisone daily Immunodeficiency with predominant T-cell defect, unspecified 03/11/2014 12/26/2015 Urgency of micturation 03/04/2014 6 Urinary frequency 03/04/2014 12/26/2015 Arm pain, left 07/06/2013 12/26/2015 Back pain without radiation 07/06/201308/2015 Abnormal finding on imaging 07/06/201308/2015 Elevated sed rate 07/06/2013 12/26/2015 Hyperpigmentation of skin 03/31/20132015 Overview: --resolved --bilateral breast tissue and axilla --order mycolog cream --monitor Diarrhea 03/31/2013 12/26/2015 Overview: - c diff pending Mucositis (ulcerative) due to antineoplastic the rapy 03/24/2013 12/26/2015 Overview: --improved --oxy prn --mouth care measures. Reflux 03/23/2013 12/26/2015 Overview: --improved with protonix Elevated LFTs 03/22/2013 12/26/2015 Overview: --increased AST ALT during chemo, resolved. Excess fluid volume 03/21/2013 12/26/2015 Overview: --diuresis as needed --continue to monitor volume status CINV (chemotherapy-induced nausea and vomiting) 03/17/2013 10/13/2015 Overview: --Resolved --Ativan PRN (none used) Peripheral neuropathy 03/16/2013 12/26/2015 Overview: --gabapentin 300mg TID with increased symptoms, bedtime dose of gabapentin increased to 600mg with improvement reported, continue DVT prophylaxis 03/16/2013 12/26/2015 Overview: --platelet count decreasing, d/c heparin SQ --encourage ambulation Insomnia 03/16/2013 12/26/2015 Overview: --ambien PRN at HS, with relief, but with vivid dreams, ambien d/c --restoril at 30mg PRN at HS with relief, continue Chronic chest pain 03/16/2013 12/26/2015 Overview: --now resolved --since Hodgkin lymphoma diagnosis per patient Hospital discharge follow-up 03/16/201308/2015 Overview: --Patient will need to follow up with Dr. Unger after discharge Tachycardia 03/16/2013 12/26/2015 Overview: --patient taking atenolol 100mg BID at home, now BP running lower, decreased atenolol dose to 50mg BID with hypotension. --increase to 75mg BID, d/t tachycardia(HRs >110 while afebrile), HR now controlled, continue --monitor closely Electrolyte and fluid disorders not elsewhere cl assified 02/16/2013 12/26/2015 DISPOSITION AND FOLLOW-UP 10/27/20122015 Overview: 32 yo female from [place], [place]. Family involved with care, at bedside. plan to discharge patient home - will arrange with case management for post op care as needed - follow up in OPD in 7-10 days Post-op pain 10/27/2012 12/26/2015 Overview: currently well controlled with [employer] REPRESENT[employer]IVE. will start PO pain meds today 10/27. tolerating percocet, pain relatively well controlled. Hodgkin's disease with nodular sclerosis 013 12/26/2015 Overview: Oncology history (per Dr. 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 Hodgkin's disease, unspecified 02/05/2012 0 05/11/2014 Vaginal bleeding 12/26/2015 Overview: --likely from thrombocytopenia. No menses in prior 8 months. Scant amount reported on 03/29 and 03/30, now resolved --monitor bleeding by counting pads --should f/u with her [employer] provider after BMT Premature menopause 12/26/2015 Postmenopausal atrophic vaginitis 12/26/2015 Dyspareunia 12/26/2015 documented as of this encounter (statuses as of 01/08/2022) [facility] History of Past illness Narrative* Problem Noted Date Resolved Date Menorrhagia with regular cycle 03/15/2017 1 03/03/2017 Overview: Added automatically from request for surgery [id number] History of pulmonary embolism 04/25/2016 Neoplastic (malignant) related fatigue 7 01/01/2018 Hidradenitis suppurativa 01/17/2016 018 Vitamin D deficiency 06/09/2015 12/26/2015 HyperCKemia 05/06/2015 12/26/2015 Elevated aldolase level 05/06/2015 12/26/19 16 Chronic pain of both knees 05/06/201512/25 Pain in joint, multiple sites 05/06/2015 Myalgia 05/06/2015 12/26/2015 Fatigue 05/06/2015 12/26/2015 Malaise and fatigue 03/24/2015 12/26/2015 Gastroesophageal reflux disease without esophagi tis 02/23/2015 12/26/2015 Laryngitis 02/23/2015 12/26/2015 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 10/28/2014 12/26/2015 Papanicolaou smear of cervix with low grade squamous intraepithelial lesion (LGSIL) 10/24/2014 12/25/2019 Pain in joint, ankle and foot 09/27/2014 ASCUS favor dysplasia 09/18/2014 12/26/2015 Visit for gynecologic examination 09/07/2014 12/26/2015 Postmenopausal HRT (hormone replacement therapy) 08/18/2014 12/26/2015 Overview: offered Gait abnormality 07/22/2014 12/26/2015 Weakness of both legs 07/22/2014 12/26/2015 Sprain of ankle, left 06/29/2014 12/26/2015 PCP (pneumocystis jiroveci pneumonia) 06/03/2014 12/26/2015 Acute respiratory failure with hypoxemia 015 12/26/2015 Overview: Increased O2 requirement overnight (2L to 5L) - bronchoscopy with BAL/TBLB tomorrow 8 AM. - NPO from midnight - hold tonight dose of lovenox. Radiation pneumonitis 05/11/2014 12/26/2015 Overview: 40 mg prednisone daily Immunodeficiency with predominant T-cell defect, unspecified 03/11/2014 12/26/2015 Urgency of micturation 03/04/2014 6 Urinary frequency 03/04/2014 12/26/2015 Arm pain, left 07/06/2013 12/26/2015 Back pain without radiation 07/06/201308/2015 Abnormal finding on imaging 07/06/201308/2015 Elevated sed rate 07/06/2013 12/26/2015 Hyperpigmentation of skin 03/31/20132015 Overview: --resolved --bilateral breast tissue and axilla --order mycolog cream --monitor Diarrhea 03/31/2013 12/26/2015 Overview: - c diff pending Mucositis (ulcerative) due to antineoplastic the rapy 03/24/2013 12/26/2015 Overview: --improved --oxy prn --mouth care measures. Reflux 03/23/2013 12/26/2015 Overview: --improved with protonix Elevated LFTs 03/22/2013 12/26/2015 Overview: --increased AST ALT during chemo, resolved. Excess fluid volume 03/21/2013 12/26/2015 Overview: --diuresis as needed --continue to monitor volume status CINV (chemotherapy-induced nausea and vomiting) 03/17/2013 10/13/2015 Overview: --Resolved --Ativan PRN (none used) Peripheral neuropathy 03/16/2013 12/26/2015 Overview: --gabapentin 300mg TID with increased symptoms, bedtime dose of gabapentin increased to 600mg with improvement reported, continue DVT prophylaxis 03/16/2013 12/26/2015 Overview: --platelet count decreasing, d/c heparin SQ --encourage ambulation Insomnia 03/16/2013 12/26/2015 Overview: --ambien PRN at HS, with relief, but with vivid dreams, ambien d/c --restoril at 30mg PRN at HS with relief, continue Chronic chest pain 03/16/2013 12/26/2015 Overview: --now resolved --since Hodgkin lymphoma diagnosis per patient Hospital discharge follow-up 03/16/201308/2015 Overview: --Patient will need to follow up with Dr. Unger after discharge Tachycardia 03/16/2013 12/26/2015 Overview: --patient taking atenolol 100mg BID at home, now BP running lower, decreased atenolol dose to 50mg BID with hypotension. --increase to 75mg BID, d/t tachycardia(HRs >110 while afebrile), HR now controlled, continue --monitor closely Electrolyte and fluid disorders not elsewhere cl assified 02/16/2013 12/26/2015 DISPOSITION AND FOLLOW-UP 10/27/20122015 Overview: 32 yo female from [place], [place]. Family involved with care, at bedside. plan to discharge patient home - will arrange with case management for post op care as needed - follow up in OPD in 7-10 days Post-op pain 10/27/2012 12/26/2015 Overview: currently well controlled with [employer] REPRESENTATIVE. will start PO pain meds today 10/27. tolerating percocet, pain relatively well controlled. Hodgkin's disease with nodular sclerosis 013 12/26/2015 Overview: Oncology history (per Dr. 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 Hodgkin's disease, unspecified 02/05/2012 0 05/11/2014 Vaginal bleeding 12/26/2015 Overview: --likely from thrombocytopenia. No menses in prior 8 months. Scant amount reported on 03/29 and 03/30, now resolved --monitor bleeding by counting pads --should f/u with her [employer] provider after BMT Premature menopause 12/26/2015 Postmenopausal atrophic vaginitis 12/26/2015 Dyspareunia 12/26/2015 documented as of this encounter (statuses as of 01/16/2022) [facility] History of Past illness Narrative* Problem Noted Date Resolved Date Menorrhagia with regular cycle 03/15/2017 1 03/03/2017 Overview: Added automatically from request for surgery [id number] History of pulmonary embolism 04/25/2016 Neoplastic (malignant) related fatigue 7 01/01/2018 Hidradenitis suppurativa 01/17/2016 018 Vitamin D deficiency 06/09/2015 12/26/2015 HyperCKemia 05/06/2015 12/26/2015 Elevated aldolase level 05/06/2015 12/26/19 16 Chronic pain of both knees 05/06/201512/25 Pain in joint, multiple sites 05/06/2015 Myalgia 05/06/2015 12/26/2015 Fatigue 05/06/2015 12/26/2015 Malaise and fatigue 03/24/2015 12/26/2015 Gastroesophageal reflux disease without esophagi tis 02/23/2015 12/26/2015 Laryngitis 02/23/2015 12/26/2015 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 10/28/2014 12/26/2015 Papanicolaou smear of cervix with low grade squamous intraepithelial lesion (LGSIL) 10/24/2014 12/25/2019 Pain in joint, ankle and foot 09/27/2014 ASCUS favor dysplasia 09/18/2014 12/26/2015 Visit for gynecologic examination 09/07/2014 12/26/2015 Postmenopausal HRT (hormone replacement therapy) 08/18/2014 12/26/2015 Overview: offered Gait abnormality 07/22/2014 12/26/2015 Weakness of both legs 07/22/2014 12/26/2015 Sprain of ankle, left 06/29/2014 12/26/2015 PCP (pneumocystis jiroveci pneumonia) 06/03/2014 12/26/2015 Acute respiratory failure with hypoxemia 015 12/26/2015 Overview: Increased O2 requirement overnight (2L to 5L) - bronchoscopy with BAL/TBLB tomorrow 8 AM. - NPO from midnight - hold tonight dose of lovenox. Radiation pneumonitis 05/11/2014 12/26/2015 Overview: 40 mg prednisone daily Immunodeficiency with predominant T-cell defect, unspecified 03/11/2014 12/26/2015 Urgency of micturation 03/04/2014 6 Urinary frequency 03/04/2014 12/26/2015 Arm pain, left 07/06/2013 12/26/2015 Back pain without radiation 07/06/201308/2015 Abnormal finding on imaging 07/06/201308/2015 Elevated sed rate 07/06/2013 12/26/2015 Hyperpigmentation of skin 03/31/20132015 Overview: --resolved --bilateral breast tissue and axilla --order mycolog cream --monitor Diarrhea 03/31/2013 12/26/2015 Overview: - c diff pending Mucositis (ulcerative) due to antineoplastic the rapy 03/24/2013 12/26/2015 Overview: --improved --oxy prn --mouth care measures. Reflux 03/23/2013 12/26/2015 Overview: --improved with protonix Elevated LFTs 03/22/2013 12/26/2015 Overview: --increased AST ALT during chemo, resolved. Excess fluid volume 03/21/2013 12/26/2015 Overview: --diuresis as needed --continue to monitor volume status CINV (chemotherapy-induced nausea and vomiting) 03/17/2013 10/13/2015 Overview: --Resolved --Ativan PRN (none used) Peripheral neuropathy 03/16/2013 12/26/2015 Overview: --gabapentin 300mg TID with increased symptoms, bedtime dose of gabapentin increased to 600mg with improvement reported, continue DVT prophylaxis 03/16/2013 12/26/2015 Overview: --platelet count decreasing, d/c heparin SQ --encourage ambulation Insomnia 03/16/2013 12/26/2015 Overview: --ambien PRN at HS, with relief, but with vivid dreams, ambien d/c --restoril at 30mg PRN at HS with relief, continue Chronic chest pain 03/16/2013 12/26/2015 Overview: --now resolved --since Hodgkin lymphoma diagnosis per patient Hospital discharge follow-up 03/16/201308/2015 Overview: --Patient will need to follow up with Dr. Unger after discharge Tachycardia 03/16/2013 12/26/2015 Overview: --patient taking atenolol 100mg BID at home, now BP running lower, decreased atenolol dose to 50mg BID with hypotension. --increase to 75mg BID, d/t tachycardia(HRs >110 while afebrile), HR now controlled, continue --monitor closely Electrolyte and fluid disorders not elsewhere cl assified 02/16/2013 12/26/2015 DISPOSITION AND FOLLOW-UP 10/27/20122015 Overview: 32 yo female from [place], [place]. Family involved with care, at bedside. plan to discharge patient home - will arrange with case management for post op care as needed - follow up in OPD in 7-10 days Post-op pain 10/27/2012 12/26/2015 Overview: currently well controlled with [employer] REPRESENTATIVE. will start PO pain meds today 10/27. tolerating percocet, pain relatively well controlled. Hodgkin's disease with nodular sclerosis 013 12/26/2015 Overview: Oncology history (per Dr. 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 Hodgkin's disease, unspecified 02/05/2012 0 05/11/2014 Vaginal bleeding 12/26/2015 Overview: --likely from thrombocytopenia. No menses in prior 8 months. Scant amount reported on 03/29 and 03/30, now resolved --monitor bleeding by counting pads --should f/u with her [employer] provider after BMT Premature menopause 12/26/2015 Postmenopausal atrophic vaginitis 12/26/2015 Dyspareunia 12/26/2015 documented as of this encounter (statuses as of 01/16/2022) [facility] History of Past illness Narrative* Problem Noted Date Resolved Date Menorrhagia with regular cycle 03/15/2017 1 03/03/2017 Overview: Added automatically from request for surgery [id number] History of pulmonary embolism 04/25/2016 Neoplastic (malignant) related fatigue 7 01/01/2018 Hidradenitis suppurativa 01/17/2016 018 Vitamin D deficiency 06/09/2015 12/26/2015 HyperCKemia 05/06/2015 12/26/2015 Elevated aldolase level 05/06/2015 12/26/19 16 Chronic pain of both knees 05/06/201512/25 Pain in joint, multiple sites 05/06/2015 Myalgia 05/06/2015 12/26/2015 Fatigue 05/06/2015 12/26/2015 Malaise and fatigue 03/24/2015 12/26/2015 Gastroesophageal reflux disease without esophagi tis 02/23/2015 12/26/2015 Laryngitis 02/23/2015 12/26/2015 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 10/28/2014 12/26/2015 Papanicolaou smear of cervix with low grade squamous intraepithelial lesion (LGSIL) 10/24/2014 12/25/2019 Pain in joint, ankle and foot 09/27/2014 ASCUS favor dysplasia 09/18/2014 12/26/2015 Visit for gynecologic examination 09/07/2014 12/26/2015 Postmenopausal HRT (hormone replacement therapy) 08/18/2014 12/26/2015 Overview: offered Gait abnormality 07/22/2014 12/26/2015 Weakness of both legs 07/22/2014 12/26/2015 Sprain of ankle, left 06/29/2014 12/26/2015 PCP (pneumocystis jiroveci pneumonia) 06/03/2014 12/26/2015 Acute respiratory failure with hypoxemia 015 12/26/2015 Overview: Increased O2 requirement overnight (2L to 5L) - bronchoscopy with BAL/TBLB tomorrow 8 AM. - NPO from midnight - hold tonight dose of lovenox. Radiation pneumonitis 05/11/2014 12/26/2015 Overview: 40 mg prednisone daily Immunodeficiency with predominant T-cell defect, unspecified 03/11/2014 12/26/2015 Urgency of micturation 03/04/2014 6 Urinary frequency 03/04/2014 12/26/2015 Arm pain, left 07/06/2013 12/26/2015 Back pain without radiation 07/06/201308/2015 Abnormal finding on imaging 07/06/201308/2015 Elevated sed rate 07/06/2013 12/26/2015 Hyperpigmentation of skin 03/31/20132015 Overview: --resolved --bilateral breast tissue and axilla --order mycolog cream --monitor Diarrhea 03/31/2013 12/26/2015 Overview: - c diff pending Mucositis (ulcerative) due to antineoplastic the rapy 03/24/2013 12/26/2015 Overview: --improved --oxy prn --mouth care measures. Reflux 03/23/2013 12/26/2015 Overview: --improved with protonix Elevated LFTs 03/22/2013 12/26/2015 Overview: --increased AST ALT during chemo, resolved. Excess fluid volume 03/21/2013 12/26/2015 Overview: --diuresis as needed --continue to monitor volume status CINV (chemotherapy-induced nausea and vomiting) 03/17/2013 10/13/2015 Overview: --Resolved --Ativan PRN (none used) Peripheral neuropathy 03/16/2013 12/26/2015 Overview: --gabapentin 300mg TID with increased symptoms, bedtime dose of gabapentin increased to 600mg with improvement reported, continue DVT prophylaxis 03/16/2013 12/26/2015 Overview: --platelet count decreasing, d/c heparin SQ --encourage ambulation Insomnia 03/16/2013 12/26/2015 Overview: --ambien PRN at HS, with relief, but with vivid dreams, ambien d/c --restoril at 30mg PRN at HS with relief, continue Chronic chest pain 03/16/2013 12/26/2015 Overview: --now resolved --since Hodgkin lymphoma diagnosis per patient Hospital discharge follow-up 03/16/201308/2015 Overview: --Patient will need to follow up with Dr. Unger after discharge Tachycardia 03/16/2013 12/26/2015 Overview: --patient taking atenolol 100mg BID at home, now BP running lower, decreased atenolol dose to 50mg BID with hypotension. --increase to 75mg BID, d/t tachycardia(HRs >110 while afebrile), HR now controlled, continue --monitor closely Electrolyte and fluid disorders not elsewhere cl assified 02/16/2013 12/26/2015 DISPOSITION AND FOLLOW-UP 10/27/20122015 Overview: 32 yo female from [place], [place]. Family involved with care, at bedside. plan to discharge patient home - will arrange with case management for post op care as needed - follow up in OPD in 7-10 days Post-op pain 10/27/2012 12/26/2015 Overview: currently well controlled with [employer] REPRESENTATIVE. will start PO pain meds today 10/27. tolerating percocet, pain relatively well controlled. Hodgkin's disease with nodular sclerosis 013 12/26/2015 Overview: Oncology history (per Dr. 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 Hodgkin's disease, unspecified 02/05/2012 0 05/11/2014 Vaginal bleeding 12/26/2015 Overview: --likely from thrombocytopenia. No menses in prior 8 months. Scant amount reported on 03/29 and 03/30, now resolved --monitor bleeding by counting pads --should f/u with her [employer] provider after BMT Premature menopause 12/26/2015 Postmenopausal atrophic vaginitis 12/26/2015 Dyspareunia 12/26/2015 documented as of this encounter (statuses as of 01/17/2022) [facility]01-[facility]-2018 History of Past illness Narrative* Problem Noted Date Resolved Date Menorrhagia with regular cycle 03/15/2017 1 03/03/2017 Overview: Added automatically from request for surgery [id number] History of pulmonary embolism 04/25/2016 Neoplastic (malignant) related fatigue 7 01/01/2018 Hidradenitis suppurativa 01/17/2016 018 Vitamin D deficiency 06/09/2015 12/26/2015 HyperCKemia 05/06/2015 12/26/2015 Elevated aldolase level 05/06/2015 12/26/19 16 Chronic pain of both knees 05/06/201512/25 Pain in joint, multiple sites 05/06/2015 Myalgia 05/06/2015 12/26/2015 Fatigue 05/06/2015 12/26/2015 Malaise and fatigue 03/24/2015 12/26/2015 Gastroesophageal reflux disease without esophagi tis 02/23/2015 12/26/2015 Laryngitis 02/23/2015 12/26/2015 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 10/28/2014 12/26/2015 Papanicolaou smear of cervix with low grade squamous intraepithelial lesion (LGSIL) 10/24/2014 12/25/2019 Pain in joint, ankle and foot 09/27/2014 ASCUS favor dysplasia 09/18/2014 12/26/2015 Visit for gynecologic examination 09/07/2014 12/26/2015 Postmenopausal HRT (hormone replacement therapy) 08/18/2014 12/26/2015 Overview: offered Gait abnormality 07/22/2014 12/26/2015 Weakness of both legs 07/22/2014 12/26/2015 Sprain of ankle, left 06/29/2014 12/26/2015 PCP (pneumocystis jiroveci pneumonia) 06/03/2014 12/26/2015 Acute respiratory failure with hypoxemia 015 12/26/2015 Overview: Increased O2 requirement overnight (2L to 5L) - bronchoscopy with BAL/TBLB tomorrow 8 AM. - NPO from midnight - hold tonight dose of lovenox. Radiation pneumonitis 05/11/2014 12/26/2015 Overview: 40 mg prednisone daily Immunodeficiency with predominant T-cell defect, unspecified 03/11/2014 12/26/2015 Urgency of micturation 03/04/2014 6 Urinary frequency 03/04/2014 12/26/2015 Arm pain, left 07/06/2013 12/26/2015 Back pain without radiation 07/06/201308/2015 Abnormal finding on imaging 07/06/201308/2015 Elevated sed rate 07/06/2013 12/26/2015 Hyperpigmentation of skin 03/31/20132015 Overview: --resolved --bilateral breast tissue and axilla --order mycolog cream --monitor Diarrhea 03/31/2013 12/26/2015 Overview: - c diff pending Mucositis (ulcerative) due to antineoplastic the rapy 03/24/2013 12/26/2015 Overview: --improved --oxy prn --mouth care measures. Reflux 03/23/2013 12/26/2015 Overview: --improved with protonix Elevated LFTs 03/22/2013 12/26/2015 Overview: --increased AST ALT during chemo, resolved. Excess fluid volume 03/21/2013 12/26/2015 Overview: --diuresis as needed --continue to monitor volume status CINV (chemotherapy-induced nausea and vomiting) 03/17/2013 10/13/2015 Overview: --Resolved --Ativan PRN (none used) Peripheral neuropathy 03/16/2013 12/26/2015 Overview: --gabapentin 300mg TID with increased symptoms, bedtime dose of gabapentin increased to 600mg with improvement reported, continue DVT prophylaxis 03/16/2013 12/26/2015 Overview: --platelet count decreasing, d/c heparin SQ --encourage ambulation Insomnia 03/16/2013 12/26/2015 Overview: --ambien PRN at HS, with relief, but with vivid dreams, ambien d/c --restoril at 30mg PRN at HS with relief, continue Chronic chest pain 03/16/2013 12/26/2015 Overview: --now resolved --since Hodgkin lymphoma diagnosis per patient Hospital discharge follow-up 03/16/201308/2015 Overview: --Patient will need to follow up with Dr. Unger after discharge Tachycardia 03/16/2013 12/26/2015 Overview: --patient taking atenolol 100mg BID at home, now BP running lower, decreased atenolol dose to 50mg BID with hypotension. --increase to 75mg BID, d/t tachycardia(HRs >110 while afebrile), HR now controlled, continue --monitor closely Electrolyte and fluid disorders not elsewhere cl assified 02/16/2013 12/26/2015 DISPOSITION AND FOLLOW-UP 10/27/20122015 Overview: 32 yo female from [place], [place]. Family involved with care, at bedside. plan to discharge patient home - will arrange with case management for post op care as needed - follow up in OPD in 7-10 days Post-op pain 10/27/2012 12/26/2015 Overview: currently well controlled with [employer] REPRESENT[employer]IVE. will start PO pain meds today 10/27. tolerating percocet, pain relatively well controlled. Hodgkin's disease with nodular sclerosis 013 12/26/2015 Overview: Oncology history (per Dr. 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 Hodgkin's disease, unspecified 02/05/2012 0 05/11/2014 Vaginal bleeding 12/26/2015 Overview: --likely from thrombocytopenia. No menses in prior 8 months. Scant amount reported on 03/29 and 03/30, now resolved --monitor bleeding by counting pads --should f/u with her [employer] provider after BMT Premature menopause 12/26/2015 Postmenopausal atrophic vaginitis 12/26/2015 Dyspareunia 12/26/2015 documented as of this encounter (statuses as of 01/18/2022) [facility] History of Past illness Narrative* Problem Noted Date Resolved Date Menorrhagia with regular cycle 03/15/2017 1 03/03/2017 Overview: Added automatically from request for surgery [id number] History of pulmonary embolism 04/25/2016 Neoplastic (malignant) related fatigue 7 01/01/2018 Hidradenitis suppurativa 01/17/2016 018 Vitamin D deficiency 06/09/2015 12/26/2015 HyperCKemia 05/06/2015 12/26/2015 Elevated aldolase level 05/06/2015 12/26/19 16 Chronic pain of both knees 05/06/201512/25 Pain in joint, multiple sites 05/06/2015 Myalgia 05/06/2015 12/26/2015 Fatigue 05/06/2015 12/26/2015 Malaise and fatigue 03/24/2015 12/26/2015 Gastroesophageal reflux disease without esophagi tis 02/23/2015 12/26/2015 Laryngitis 02/23/2015 12/26/2015 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 10/28/2014 12/26/2015 Papanicolaou smear of cervix with low grade squamous intraepithelial lesion (LGSIL) 10/24/2014 12/25/2019 Pain in joint, ankle and foot 09/27/2014 ASCUS favor dysplasia 09/18/2014 12/26/2015 Visit for gynecologic examination 09/07/2014 12/26/2015 Postmenopausal HRT (hormone replacement therapy) 08/18/2014 12/26/2015 Overview: offered Gait abnormality 07/22/2014 12/26/2015 Weakness of both legs 07/22/2014 12/26/2015 Sprain of ankle, left 06/29/2014 12/26/2015 PCP (pneumocystis jiroveci pneumonia) 06/03/2014 12/26/2015 Acute respiratory failure with hypoxemia 015 12/26/2015 Overview: Increased O2 requirement overnight (2L to 5L) - bronchoscopy with BAL/TBLB tomorrow 8 AM. - NPO from midnight - hold tonight dose of lovenox. Radiation pneumonitis 05/11/2014 12/26/2015 Overview: 40 mg prednisone daily Immunodeficiency with predominant T-cell defect, unspecified 03/11/2014 12/26/2015 Urgency of micturation 03/04/2014 6 Urinary frequency 03/04/2014 12/26/2015 Arm pain, left 07/06/2013 12/26/2015 Back pain without radiation 07/06/201308/2015 Abnormal finding on imaging 07/06/201308/2015 Elevated sed rate 07/06/2013 12/26/2015 Hyperpigmentation of skin 03/31/20132015 Overview: --resolved --bilateral breast tissue and axilla --order mycolog cream --monitor Diarrhea 03/31/2013 12/26/2015 Overview: - c diff pending Mucositis (ulcerative) due to antineoplastic the rapy 03/24/2013 12/26/2015 Overview: --improved --oxy prn --mouth care measures. Reflux 03/23/2013 12/26/2015 Overview: --improved with protonix Elevated LFTs 03/22/2013 12/26/2015 Overview: --increased AST ALT during chemo, resolved. Excess fluid volume 03/21/2013 12/26/2015 Overview: --diuresis as needed --continue to monitor volume status CINV (chemotherapy-induced nausea and vomiting) 03/17/2013 10/13/2015 Overview: --Resolved --Ativan PRN (none used) Peripheral neuropathy 03/16/2013 12/26/2015 Overview: --gabapentin 300mg TID with increased symptoms, bedtime dose of gabapentin increased to 600mg with improvement reported, continue DVT prophylaxis 03/16/2013 12/26/2015 Overview: --platelet count decreasing, d/c heparin SQ --encourage ambulation Insomnia 03/16/2013 12/26/2015 Overview: --ambien PRN at HS, with relief, but with vivid dreams, ambien d/c --restoril at 30mg PRN at HS with relief, continue Chronic chest pain 03/16/2013 12/26/2015 Overview: --now resolved --since Hodgkin lymphoma diagnosis per patient Hospital discharge follow-up 03/16/201308/2015 Overview: --Patient will need to follow up with Dr. Unger after discharge Tachycardia 03/16/2013 12/26/2015 Overview: --patient taking atenolol 100mg BID at home, now BP running lower, decreased atenolol dose to 50mg BID with hypotension. --increase to 75mg BID, d/t tachycardia(HRs >110 while afebrile), HR now controlled, continue --monitor closely Electrolyte and fluid disorders not elsewhere cl assified 02/16/2013 12/26/2015 DISPOSITION AND FOLLOW-UP 10/27/20122015 Overview: 32 yo female from [place], [place]. Family involved with care, at bedside. plan to discharge patient home - will arrange with case management for post op care as needed - follow up in OPD in 7-10 days Post-op pain 10/27/2012 12/26/2015 Overview: currently well controlled with [employer] REPRESENT[employer]IVE. will start PO pain meds today 10/27. tolerating percocet, pain relatively well controlled. Hodgkin's disease with nodular sclerosis 013 12/26/2015 Overview: Oncology history (per Dr. 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 Hodgkin's disease, unspecified 02/05/2012 0 05/11/2014 Vaginal bleeding 12/26/2015 Overview: --likely from thrombocytopenia. No menses in prior 8 months. Scant amount reported on 03/29 and 03/30, now resolved --monitor bleeding by counting pads --should f/u with her [employer] provider after BMT Premature menopause 12/26/2015 Postmenopausal atrophic vaginitis 12/26/2015 Dyspareunia 12/26/2015 documented as of this encounter (statuses as of 01/20/2022) [facility] History of Past illness Narrative* Problem Noted Date Resolved Date Menorrhagia with regular cycle 03/15/2017 1 03/03/2017 Overview: Added automatically from request for surgery [id number] History of pulmonary embolism 04/25/2016 Neoplastic (malignant) related fatigue 7 01/01/2018 Hidradenitis suppurativa 01/17/2016 018 Vitamin D deficiency 06/09/2015 12/26/2015 HyperCKemia 05/06/2015 12/26/2015 Elevated aldolase level 05/06/2015 12/26/19 16 Chronic pain of both knees 05/06/201512/25 Pain in joint, multiple sites 05/06/2015 Myalgia 05/06/2015 12/26/2015 Fatigue 05/06/2015 12/26/2015 Malaise and fatigue 03/24/2015 12/26/2015 Gastroesophageal reflux disease without esophagi tis 02/23/2015 12/26/2015 Laryngitis 02/23/2015 12/26/2015 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 10/28/2014 12/26/2015 Papanicolaou smear of cervix with low grade squamous intraepithelial lesion (LGSIL) 10/24/2014 12/25/2019 Pain in joint, ankle and foot 09/27/2014 ASCUS favor dysplasia 09/18/2014 12/26/2015 Visit for gynecologic examination 09/07/2014 12/26/2015 Postmenopausal HRT (hormone replacement therapy) 08/18/2014 12/26/2015 Overview: offered Gait abnormality 07/22/2014 12/26/2015 Weakness of both legs 07/22/2014 12/26/2015 Sprain of ankle, left 06/29/2014 12/26/2015 PCP (pneumocystis jiroveci pneumonia) 06/03/2014 12/26/2015 Acute respiratory failure with hypoxemia 015 12/26/2015 Overview: Increased O2 requirement overnight (2L to 5L) - bronchoscopy with BAL/TBLB tomorrow 8 AM. - NPO from midnight - hold tonight dose of lovenox. Radiation pneumonitis 05/11/2014 12/26/2015 Overview: 40 mg prednisone daily Immunodeficiency with predominant T-cell defect, unspecified 03/11/2014 12/26/2015 Urgency of micturation 03/04/2014 6 Urinary frequency 03/04/2014 12/26/2015 Arm pain, left 07/06/2013 12/26/2015 Back pain without radiation 07/06/201308/2015 Abnormal finding on imaging 07/06/201308/2015 Elevated sed rate 07/06/2013 12/26/2015 Hyperpigmentation of skin 03/31/20132015 Overview: --resolved --bilateral breast tissue and axilla --order mycolog cream --monitor Diarrhea 03/31/2013 12/26/2015 Overview: - c diff pending Mucositis (ulcerative) due to antineoplastic the rapy 03/24/2013 12/26/2015 Overview: --improved --oxy prn --mouth care measures. Reflux 03/23/2013 12/26/2015 Overview: --improved with protonix Elevated LFTs 03/22/2013 12/26/2015 Overview: --increased AST ALT during chemo, resolved. Excess fluid volume 03/21/2013 12/26/2015 Overview: --diuresis as needed --continue to monitor volume status CINV (chemotherapy-induced nausea and vomiting) 03/17/2013 10/13/2015 Overview: --Resolved --Ativan PRN (none used) Peripheral neuropathy 03/16/2013 12/26/2015 Overview: --gabapentin 300mg TID with increased symptoms, bedtime dose of gabapentin increased to 600mg with improvement reported, continue DVT prophylaxis 03/16/2013 12/26/2015 Overview: --platelet count decreasing, d/c heparin SQ --encourage ambulation Insomnia 03/16/2013 12/26/2015 Overview: --ambien PRN at HS, with relief, but with vivid dreams, ambien d/c --restoril at 30mg PRN at HS with relief, continue Chronic chest pain 03/16/2013 12/26/2015 Overview: --now resolved --since Hodgkin lymphoma diagnosis per patient Hospital discharge follow-up 03/16/201308/2015 Overview: --Patient will need to follow up with Dr. Unger after discharge Tachycardia 03/16/2013 12/26/2015 Overview: --patient taking atenolol 100mg BID at home, now BP running lower, decreased atenolol dose to 50mg BID with hypotension. --increase to 75mg BID, d/t tachycardia(HRs >110 while afebrile), HR now controlled, continue --monitor closely Electrolyte and fluid disorders not elsewhere cl assified 02/16/2013 12/26/2015 DISPOSITION AND FOLLOW-UP 10/27/20122015 Overview: 32 yo female from [place], [place]. Family involved with care, at bedside. plan to discharge patient home - will arrange with case management for post op care as needed - follow up in OPD in 7-10 days Post-op pain 10/27/2012 12/26/2015 Overview: currently well controlled with [employer] REPRESENT[employer]IVE. will start PO pain meds today 10/27. tolerating percocet, pain relatively well controlled. Hodgkin's disease with nodular sclerosis 013 12/26/2015 Overview: Oncology history (per Dr. 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 Hodgkin's disease, unspecified 02/05/2012 0 05/11/2014 Vaginal bleeding 12/26/2015 Overview: --likely from thrombocytopenia. No menses in prior 8 months. Scant amount reported on 03/29 and 03/30, now resolved --monitor bleeding by counting pads --should f/u with her [employer] provider after BMT Premature menopause 12/26/2015 Postmenopausal atrophic vaginitis 12/26/2015 Dyspareunia 12/26/2015 documented as of this encounter (statuses as of 01/22/2022) [facility] History of Past illness Narrative* Problem Noted Date Resolved Date Menorrhagia with regular cycle 03/15/2017 1 03/03/2017 Overview: Added automatically from request for surgery [id number] History of pulmonary embolism 04/25/2016 Neoplastic (malignant) related fatigue 7 01/01/2018 Hidradenitis suppurativa 01/17/2016 018 Vitamin D deficiency 06/09/2015 12/26/2015 HyperCKemia 05/06/2015 12/26/2015 Elevated aldolase level 05/06/2015 12/26/19 16 Chronic pain of both knees 05/06/201512/25 Pain in joint, multiple sites 05/06/2015 Myalgia 05/06/2015 12/26/2015 Fatigue 05/06/2015 12/26/2015 Malaise and fatigue 03/24/2015 12/26/2015 Gastroesophageal reflux disease without esophagi tis 02/23/2015 12/26/2015 Laryngitis 02/23/2015 12/26/2015 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 10/28/2014 12/26/2015 Papanicolaou smear of cervix with low grade squamous intraepithelial lesion (LGSIL) 10/24/2014 12/25/2019 Pain in joint, ankle and foot 09/27/2014 ASCUS favor dysplasia 09/18/2014 12/26/2015 Visit for gynecologic examination 09/07/2014 12/26/2015 Postmenopausal HRT (hormone replacement therapy) 08/18/2014 12/26/2015 Overview: offered Gait abnormality 07/22/2014 12/26/2015 Weakness of both legs 07/22/2014 12/26/2015 Sprain of ankle, left 06/29/2014 12/26/2015 PCP (pneumocystis jiroveci pneumonia) 06/03/2014 12/26/2015 Acute respiratory failure with hypoxemia 015 12/26/2015 Overview: Increased O2 requirement overnight (2L to 5L) - bronchoscopy with BAL/TBLB tomorrow 8 AM. - NPO from midnight - hold tonight dose of lovenox. Radiation pneumonitis 05/11/2014 12/26/2015 Overview: 40 mg prednisone daily Immunodeficiency with predominant T-cell defect, unspecified 03/11/2014 12/26/2015 Urgency of micturation 03/04/2014 6 Urinary frequency 03/04/2014 12/26/2015 Arm pain, left 07/06/2013 12/26/2015 Back pain without radiation 07/06/201308/2015 Abnormal finding on imaging 07/06/201308/2015 Elevated sed rate 07/06/2013 12/26/2015 Hyperpigmentation of skin 03/31/20132015 Overview: --resolved --bilateral breast tissue and axilla --order mycolog cream --monitor Diarrhea 03/31/2013 12/26/2015 Overview: - c diff pending Mucositis (ulcerative) due to antineoplastic the rapy 03/24/2013 12/26/2015 Overview: --improved --oxy prn --mouth care measures. Reflux 03/23/2013 12/26/2015 Overview: --improved with protonix Elevated LFTs 03/22/2013 12/26/2015 Overview: --increased AST ALT during chemo, resolved. Excess fluid volume 03/21/2013 12/26/2015 Overview: --diuresis as needed --continue to monitor volume status CINV (chemotherapy-induced nausea and vomiting) 03/17/2013 10/13/2015 Overview: --Resolved --Ativan PRN (none used) Peripheral neuropathy 03/16/2013 12/26/2015 Overview: --gabapentin 300mg TID with increased symptoms, bedtime dose of gabapentin increased to 600mg with improvement reported, continue DVT prophylaxis 03/16/2013 12/26/2015 Overview: --platelet count decreasing, d/c heparin SQ --encourage ambulation Insomnia 03/16/2013 12/26/2015 Overview: --ambien PRN at HS, with relief, but with vivid dreams, bright d/c --restoril at 30mg PRN at HS with relief, continue Chronic chest pain 03/16/2013 12/26/2015 Overview: --now resolved --since Hodgkin lymphoma diagnosis per patient Hospital discharge follow-up 03/16/201308/2015 Overview: --Patient will need to follow up with Dr. Unger after discharge Tachycardia 03/16/2013 12/26/2015 Overview: --patient taking atenolol 100mg BID at home, now BP running lower, decreased atenolol dose to 50mg BID with hypotension. --increase to 75mg BID, d/t tachycardia(HRs >110 while afebrile), HR now controlled, continue --monitor closely Electrolyte and fluid disorders not elsewhere cl assified 02/16/2013 12/26/2015 DISPOSITION AND FOLLOW-UP 10/27/20122015 Overview: 32 yo female from [place], [place]. Family involved with care, at bedside. plan to discharge patient home - will arrange with case management for post op care as needed - follow up in OPD in 7-10 days Post-op pain 10/27/2012 12/26/2015 Overview: currently well controlled with [employer] REPRESENTATIVE. will start PO pain meds today 10/27. tolerating percocet, pain relatively well controlled. Hodgkin's disease with nodular sclerosis 013 12/26/2015 Overview: Oncology history (per Dr. 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 Hodgkin's disease, unspecified 02/05/2012 0 05/11/2014 Vaginal bleeding 12/26/2015 Overview: --likely from thrombocytopenia. No menses in prior 8 months. Scant amount reported on 03/29 and 03/30, now resolved --monitor bleeding by counting pads --should f/u with her [employer] provider after BMT Premature menopause 12/26/2015 Postmenopausal atrophic vaginitis 12/26/2015 Dyspareunia 12/26/2015 documented as of this encounter (statuses as of 01/25/2022) [facility] History of Past illness Narrative* Problem Noted Date Resolved Date Menorrhagia with regular cycle 03/15/2017 1 03/03/2017 Overview: Added automatically from request for surgery [id number] History of pulmonary embolism 04/25/2016 Neoplastic (malignant) related fatigue 7 01/01/2018 Hidradenitis suppurativa 01/17/2016 018 Vitamin D deficiency 06/09/2015 12/26/2015 HyperCKemia 05/06/2015 12/26/2015 Elevated aldolase level 05/06/2015 12/26/19 16 Chronic pain of both knees 05/06/201512/25 Pain in joint, multiple sites 05/06/2015 Myalgia 05/06/2015 12/26/2015 Fatigue 05/06/2015 12/26/2015 Malaise and fatigue 03/24/2015 12/26/2015 Gastroesophageal reflux disease without esophagi tis 02/23/2015 12/26/2015 Laryngitis 02/23/2015 12/26/2015 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 10/28/2014 12/26/2015 Papanicolaou smear of cervix with low grade squamous intraepithelial lesion (LGSIL) 10/24/2014 12/25/2019 Pain in joint, ankle and foot 09/27/2014 ASCUS favor dysplasia 09/18/2014 12/26/2015 Visit for gynecologic examination 09/07/2014 12/26/2015 Postmenopausal HRT (hormone replacement therapy) 08/18/2014 12/26/2015 Overview: offered Gait abnormality 07/22/2014 12/26/2015 Weakness of both legs 07/22/2014 12/26/2015 Sprain of ankle, left 06/29/2014 12/26/2015 PCP (pneumocystis jiroveci pneumonia) 06/03/2014 12/26/2015 Acute respiratory failure with hypoxemia 015 12/26/2015 Overview: Increased O2 requirement overnight (2L to 5L) - bronchoscopy with BAL/TBLB tomorrow 8 AM. - NPO from midnight - hold tonight dose of lovenox. Radiation pneumonitis 05/11/2014 12/26/2015 Overview: 40 mg prednisone daily Immunodeficiency with predominant T-cell defect, unspecified 03/11/2014 12/26/2015 Urgency of micturation 03/04/2014 6 Urinary frequency 03/04/2014 12/26/2015 Arm pain, left 07/06/2013 12/26/2015 Back pain without radiation 07/06/201308/2015 Abnormal finding on imaging 07/06/201308/2015 Elevated sed rate 07/06/2013 12/26/2015 Hyperpigmentation of skin 03/31/20132015 Overview: --resolved --bilateral breast tissue and axilla --order mycolog cream --monitor Diarrhea 03/31/2013 12/26/2015 Overview: - c diff pending Mucositis (ulcerative) due to antineoplastic the rapy 03/24/2013 12/26/2015 Overview: --improved --oxy prn --mouth care measures. Reflux 03/23/2013 12/26/2015 Overview: --improved with protonix Elevated LFTs 03/22/2013 12/26/2015 Overview: --increased AST ALT during chemo, resolved. Excess fluid volume 03/21/2013 12/26/2015 Overview: --diuresis as needed --continue to monitor volume status CINV (chemotherapy-induced nausea and vomiting) 03/17/2013 10/13/2015 Overview: --Resolved --Ativan PRN (none used) Peripheral neuropathy 03/16/2013 12/26/2015 Overview: --gabapentin 300mg TID with increased symptoms, bedtime dose of gabapentin increased to 600mg with improvement reported, continue DVT prophylaxis 03/16/2013 12/26/2015 Overview: --platelet count decreasing, d/c heparin SQ --encourage ambulation Insomnia 03/16/2013 12/26/2015 Overview: --ambien PRN at HS, with relief, but with vivid dreams, ambien d/c --restoril at 30mg PRN at HS with relief, continue Chronic chest pain 03/16/2013 12/26/2015 Overview: --now resolved --since Hodgkin lymphoma diagnosis per patient Hospital discharge follow-up 03/16/201308/2015 Overview: --Patient will need to follow up with Dr. Unger after discharge Tachycardia 03/16/2013 12/26/2015 Overview: --patient taking atenolol 100mg BID at home, now BP running lower, decreased atenolol dose to 50mg BID with hypotension. --increase to 75mg BID, d/t tachycardia(HRs >110 while afebrile), HR now controlled, continue --monitor closely Electrolyte and fluid disorders not elsewhere cl assified 02/16/2013 12/26/2015 DISPOSITION AND FOLLOW-UP 10/27/20122015 Overview: 32 yo female from [place], [place]. Family involved with care, at bedside. plan to discharge patient home - will arrange with case management for post op care as needed - follow up in OPD in 7-10 days Post-op pain 10/27/2012 12/26/2015 Overview: currently well controlled with [employer] SAL[employer] REPRESENTATIVE. will start PO pain meds today 10/27. tolerating percocet, pain relatively well controlled. Hodgkin's disease with nodular sclerosis 013 12/26/2015 Overview: Oncology history (per Dr. 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 Hodgkin's disease, unspecified 02/05/2012 0 05/11/2014 Vaginal bleeding 12/26/2015 Overview: --likely from thrombocytopenia. No menses in prior 8 months. Scant amount reported on 03/29 and 03/30, now resolved --monitor bleeding by counting pads --should f/u with her [employer] [employer] provider after BMT Premature menopause 12/26/2015 Postmenopausal atrophic vaginitis 12/26/2015 Dyspareunia 12/26/2015 documented as of this encounter (statuses as of 02/11/2022) [facility] History of Past illness Narrative* Problem Noted Date Resolved Date Menorrhagia with regular cycle 03/15/2017 1 03/03/2017 Overview: Added automatically from request for surgery [id number] History of pulmonary embolism 04/25/2016 Neoplastic (malignant) related fatigue 7 01/01/2018 Hidradenitis suppurativa 01/17/2016 018 Vitamin D deficiency 06/09/2015 12/26/2015 HyperCKemia 05/06/2015 12/26/2015 Elevated aldolase level 05/06/2015 12/26/19 16 Chronic pain of both knees 05/06/201512/25 Pain in joint, multiple sites 05/06/2015 Myalgia 05/06/2015 12/26/2015 Fatigue 05/06/2015 12/26/2015 Malaise and fatigue 03/24/2015 12/26/2015 Gastroesophageal reflux disease without esophagi tis 02/23/2015 12/26/2015 Laryngitis 02/23/2015 12/26/2015 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 10/28/2014 12/26/2015 Papanicolaou smear of cervix with low grade squamous intraepithelial lesion (LGSIL) 10/24/2014 12/25/2019 Pain in joint, ankle and foot 09/27/2014 ASCUS favor dysplasia 09/18/2014 12/26/2015 Visit for gynecologic examination 09/07/2014 12/26/2015 Postmenopausal HRT (hormone replacement therapy) 08/18/2014 12/26/2015 Overview: offered Gait abnormality 07/22/2014 12/26/2015 Weakness of both legs 07/22/2014 12/26/2015 Sprain of ankle, left 06/29/2014 12/26/2015 PCP (pneumocystis jiroveci pneumonia) 06/03/2014 12/26/2015 Acute respiratory failure with hypoxemia 015 12/26/2015 Overview: Increased O2 requirement overnight (2L to 5L) - bronchoscopy with BAL/TBLB tomorrow 8 AM. - NPO from midnight - hold tonight dose of lovenox. Radiation pneumonitis 05/11/2014 12/26/2015 Overview: 40 mg prednisone daily Immunodeficiency with predominant T-cell defect, unspecified 03/11/2014 12/26/2015 Urgency of micturation 03/04/2014 6 Urinary frequency 03/04/2014 12/26/2015 Arm pain, left 07/06/2013 12/26/2015 Back pain without radiation 07/06/201308/2015 Abnormal finding on imaging 07/06/201308/2015 Elevated sed rate 07/06/2013 12/26/2015 Hyperpigmentation of skin 03/31/20132015 Overview: --resolved --bilateral breast tissue and axilla --order mycolog cream --monitor Diarrhea 03/31/2013 12/26/2015 Overview: - c diff pending Mucositis (ulcerative) due to antineoplastic the rapy 03/24/2013 12/26/2015 Overview: --improved --oxy prn --mouth care measures. Reflux 03/23/2013 12/26/2015 Overview: --improved with protonix Elevated LFTs 03/22/2013 12/26/2015 Overview: --increased AST ALT during chemo, resolved. Excess fluid volume 03/21/2013 12/26/2015 Overview: --diuresis as needed --continue to monitor volume status CINV (chemotherapy-induced nausea and vomiting) 03/17/2013 10/13/2015 Overview: --Resolved --Ativan PRN (none used) Peripheral neuropathy 03/16/2013 12/26/2015 Overview: --gabapentin 300mg TID with increased symptoms, bedtime dose of gabapentin increased to 600mg with improvement reported, continue DVT prophylaxis 03/16/2013 12/26/2015 Overview: --platelet count decreasing, d/c heparin SQ --encourage ambulation Insomnia 03/16/2013 12/26/2015 Overview: --ambien PRN at HS, with relief, but with vivid dreams, ambien d/c --restoril at 30mg PRN at HS with relief, continue Chronic chest pain 03/16/2013 12/26/2015 Overview: --now resolved --since Hodgkin lymphoma diagnosis per patient Hospital discharge follow-up 03/16/201308/2015 Overview: --Patient will need to follow up with Dr. Unger after discharge Tachycardia 03/16/2013 12/26/2015 Overview: --patient taking atenolol 100mg BID at home, now BP running lower, decreased atenolol dose to 50mg BID with hypotension. --increase to 75mg BID, d/t tachycardia(HRs >110 while afebrile), HR now controlled, continue --monitor closely Electrolyte and fluid disorders not elsewhere cl assified 02/16/2013 12/26/2015 DISPOSITION AND FOLLOW-UP 10/27/20122015 Overview: 32 yo female from [place], [place]. Family involved with care, at bedside. plan to discharge patient home - will arrange with case management for post op care as needed - follow up in OPD in 7-10 days Post-op pain 10/27/2012 12/26/2015 Overview: currently well controlled with [employer] REPRESENTATIVE. will start PO pain meds today 10/27. tolerating percocet, pain relatively well controlled. Hodgkin's disease with nodular sclerosis 013 12/26/2015 Overview: Oncology history (per Dr. 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 Hodgkin's disease, unspecified 02/05/2012 0 05/11/2014 Vaginal bleeding 12/26/2015 Overview: --likely from thrombocytopenia. No menses in prior 8 months. Scant amount reported on 03/29 and 03/30, now resolved --monitor bleeding by counting pads --should f/u with her [employer] [employer] provider after BMT Premature menopause 12/26/2015 Postmenopausal atrophic vaginitis 12/26/2015 Dyspareunia 12/26/2015 documented as of this encounter (statuses as of 02/21/2022) [facility] History of Past illness Narrative* Problem Noted Date Resolved Date Menorrhagia with regular cycle 03/15/2017 1 03/03/2017 Overview: Added automatically from request for surgery [id number] History of pulmonary embolism 04/25/2016 Neoplastic (malignant) related fatigue 7 01/01/2018 Hidradenitis suppurativa 01/17/2016 018 Vitamin D deficiency 06/09/2015 12/26/2015 HyperCKemia 05/06/2015 12/26/2015 Elevated aldolase level 05/06/2015 12/26/19 16 Chronic pain of both knees 05/06/201512/25 Pain in joint, multiple sites 05/06/2015 Myalgia 05/06/2015 12/26/2015 Fatigue 05/06/2015 12/26/2015 Malaise and fatigue 03/24/2015 12/26/2015 Gastroesophageal reflux disease without esophagi tis 02/23/2015 12/26/2015 Laryngitis 02/23/2015 12/26/2015 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 10/28/2014 12/26/2015 Papanicolaou smear of cervix with low grade squamous intraepithelial lesion (LGSIL) 10/24/2014 12/25/2019 Pain in joint, ankle and foot 09/27/2014 ASCUS favor dysplasia 09/18/2014 12/26/2015 Visit for gynecologic examination 09/07/2014 12/26/2015 Postmenopausal HRT (hormone replacement therapy) 08/18/2014 12/26/2015 Overview: offered Gait abnormality 07/22/2014 12/26/2015 Weakness of both legs 07/22/2014 12/26/2015 Sprain of ankle, left 06/29/2014 12/26/2015 PCP (pneumocystis jiroveci pneumonia) 06/03/2014 12/26/2015 Acute respiratory failure with hypoxemia 015 12/26/2015 Overview: Increased O2 requirement overnight (2L to 5L) - bronchoscopy with BAL/TBLB tomorrow 8 AM. - NPO from midnight - hold tonight dose of lovenox. Radiation pneumonitis 05/11/2014 12/26/2015 Overview: 40 mg prednisone daily Immunodeficiency with predominant T-cell defect, unspecified 03/11/2014 12/26/2015 Urgency of micturation 03/04/2014 6 Urinary frequency 03/04/2014 12/26/2015 Arm pain, left 07/06/2013 12/26/2015 Back pain without radiation 07/06/201308/2015 Abnormal finding on imaging 07/06/201308/2015 Elevated sed rate 07/06/2013 12/26/2015 Hyperpigmentation of skin 03/31/20132015 Overview: --resolved --bilateral breast tissue and axilla --order mycolog cream --monitor Diarrhea 03/31/2013 12/26/2015 Overview: - c diff pending Mucositis (ulcerative) due to antineoplastic the rapy 03/24/2013 12/26/2015 Overview: --improved --oxy prn --mouth care measures. Reflux 03/23/2013 12/26/2015 Overview: --improved with protonix Elevated LFTs 03/22/2013 12/26/2015 Overview: --increased AST ALT during chemo, resolved. Excess fluid volume 03/21/2013 12/26/2015 Overview: --diuresis as needed --continue to monitor volume status CINV (chemotherapy-induced nausea and vomiting) 03/17/2013 10/13/2015 Overview: --Resolved --Ativan PRN (none used) Peripheral neuropathy 03/16/2013 12/26/2015 Overview: --gabapentin 300mg TID with increased symptoms, bedtime dose of gabapentin increased to 600mg with improvement reported, continue DVT prophylaxis 03/16/2013 12/26/2015 Overview: --platelet count decreasing, d/c heparin SQ --encourage ambulation Insomnia 03/16/2013 12/26/2015 Overview: --ambien PRN at HS, with relief, but with vivid dreams, bright d/c --restoril at 30mg PRN at HS with relief, continue Chronic chest pain 03/16/2013 12/26/2015 Overview: --now resolved --since Hodgkin lymphoma diagnosis per patient Hospital discharge follow-up 03/16/201308/2015 Overview: --Patient will need to follow up with Dr. Unger after discharge Tachycardia 03/16/2013 12/26/2015 Overview: --patient taking atenolol 100mg BID at home, now BP running lower, decreased atenolol dose to 50mg BID with hypotension. --increase to 75mg BID, d/t tachycardia(HRs >110 while afebrile), HR now controlled, continue --monitor closely Electrolyte and fluid disorders not elsewhere cl assified 02/16/2013 12/26/2015 DISPOSITION AND FOLLOW-UP 10/27/20122015 Overview: 32 yo female from [place], [place]. Family involved with care, at bedside. plan to discharge patient home - will arrange with case management for post op care as needed - follow up in OPD in 7-10 days Post-op pain 10/27/2012 12/26/2015 Overview: currently well controlled with [employer] REPRESENTATIVE. will start PO pain meds today 10/27. tolerating percocet, pain relatively well controlled. Hodgkin's disease with nodular sclerosis 013 12/26/2015 Overview: Oncology history (per Dr. 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 Hodgkin's disease, unspecified 02/05/2012 0 05/11/2014 Vaginal bleeding 12/26/2015 Overview: --likely from thrombocytopenia. No menses in prior 8 months. Scant amount reported on 03/29 and 03/30, now resolved --monitor bleeding by counting pads --should f/u with her [employer] provider after BMT Premature menopause 12/26/2015 Postmenopausal atrophic vaginitis 12/26/2015 Dyspareunia 12/26/2015 documented as of this encounter (statuses as of 03/06/2022) [facility] History of Past illness Narrative* Problem Noted Date Resolved Date Menorrhagia with regular cycle 03/15/2017 1 03/03/2017 Overview: Added automatically from request for surgery [id number] History of pulmonary embolism 04/25/2016 Neoplastic (malignant) related fatigue 7 01/01/2018 Hidradenitis suppurativa 01/17/2016 018 Vitamin D deficiency 06/09/2015 12/26/2015 HyperCKemia 05/06/2015 12/26/2015 Elevated aldolase level 05/06/2015 12/26/19 16 Chronic pain of both knees 05/06/201512/25 Pain in joint, multiple sites 05/06/2015 Myalgia 05/06/2015 12/26/2015 Fatigue 05/06/2015 12/26/2015 Malaise and fatigue 03/24/2015 12/26/2015 Gastroesophageal reflux disease without esophagi tis 02/23/2015 12/26/2015 Laryngitis 02/23/2015 12/26/2015 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 10/28/2014 12/26/2015 Papanicolaou smear of cervix with low grade squamous intraepithelial lesion (LGSIL) 10/24/2014 12/25/2019 Pain in joint, ankle and foot 09/27/2014 ASCUS favor dysplasia 09/18/2014 12/26/2015 Visit for gynecologic examination 09/07/2014 12/26/2015 Postmenopausal HRT (hormone replacement therapy) 08/18/2014 12/26/2015 Overview: offered Gait abnormality 07/22/2014 12/26/2015 Weakness of both legs 07/22/2014 12/26/2015 Sprain of ankle, left 06/29/2014 12/26/2015 PCP (pneumocystis jiroveci pneumonia) 06/03/2014 12/26/2015 Acute respiratory failure with hypoxemia 015 12/26/2015 Overview: Increased O2 requirement overnight (2L to 5L) - bronchoscopy with BAL/TBLB tomorrow 8 AM. - NPO from midnight - hold tonight dose of lovenox. Radiation pneumonitis 05/11/2014 12/26/2015 Overview: 40 mg prednisone daily Immunodeficiency with predominant T-cell defect, unspecified 03/11/2014 12/26/2015 Urgency of micturation 03/04/2014 6 Urinary frequency 03/04/2014 12/26/2015 Arm pain, left 07/06/2013 12/26/2015 Back pain without radiation 07/06/201308/2015 Abnormal finding on imaging 07/06/201308/2015 Elevated sed rate 07/06/2013 12/26/2015 Hyperpigmentation of skin 03/31/20132015 Overview: --resolved --bilateral breast tissue and axilla --order mycolog cream --monitor Diarrhea 03/31/2013 12/26/2015 Overview: - c diff pending Mucositis (ulcerative) due to antineoplastic the rapy 03/24/2013 12/26/2015 Overview: --improved --oxy prn --mouth care measures. Reflux 03/23/2013 12/26/2015 Overview: --improved with protonix Elevated LFTs 03/22/2013 12/26/2015 Overview: --increased AST ALT during chemo, resolved. Excess fluid volume 03/21/2013 12/26/2015 Overview: --diuresis as needed --continue to monitor volume status CINV (chemotherapy-induced nausea and vomiting) 03/17/2013 10/13/2015 Overview: --Resolved --Ativan PRN (none used) Peripheral neuropathy 03/16/2013 12/26/2015 Overview: --gabapentin 300mg TID with increased symptoms, bedtime dose of gabapentin increased to 600mg with improvement reported, continue DVT prophylaxis 03/16/2013 12/26/2015 Overview: --platelet count decreasing, d/c heparin SQ --encourage ambulation Insomnia 03/16/2013 12/26/2015 Overview: --ambien PRN at HS, with relief, but with vivid dreams, ambien d/c --restoril at 30mg PRN at HS with relief, continue Chronic chest pain 03/16/2013 12/26/2015 Overview: --now resolved --since Hodgkin lymphoma diagnosis per patient Hospital discharge follow-up 03/16/201308/2015 Overview: --Patient will need to follow up with Dr. Unger after discharge Tachycardia 03/16/2013 12/26/2015 Overview: --patient taking atenolol 100mg BID at home, now BP running lower, decreased atenolol dose to 50mg BID with hypotension. --increase to 75mg BID, d/t tachycardia(HRs >110 while afebrile), HR now controlled, continue --monitor closely Electrolyte and fluid disorders not elsewhere cl assified 02/16/2013 12/26/2015 DISPOSITION AND FOLLOW-UP 10/27/20122015 Overview: 32 yo female from [place], [place]. Family involved with care, at bedside. plan to discharge patient home - will arrange with case management for post op care as needed - follow up in OPD in 7-10 days Post-op pain 10/27/2012 12/26/2015 Overview: currently well controlled with [employer] REPRESENTATIVE. will start PO pain meds today 10/27. tolerating percocet, pain relatively well controlled. Hodgkin's disease with nodular sclerosis 013 12/26/2015 Overview: Oncology history (per Dr. 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 Hodgkin's disease, unspecified 02/05/2012 0 05/11/2014 Vaginal bleeding 12/26/2015 Overview: --likely from thrombocytopenia. No menses in prior 8 months. Scant amount reported on 03/29 and 03/30, now resolved --monitor bleeding by counting pads --should f/u with her [employer] provider after BMT Premature menopause 12/26/2015 Postmenopausal atrophic vaginitis 12/26/2015 Dyspareunia 12/26/2015 documented as of this encounter (statuses as of 03/07/2022) [facility] History of Past illness Narrative* Problem Noted Date Resolved Date Menorrhagia with regular cycle 03/15/2017 1 03/03/2017 Overview: Added automatically from request for surgery [id number] History of pulmonary embolism 04/25/2016 Neoplastic (malignant) related fatigue 7 01/01/2018 Hidradenitis suppurativa 01/17/2016 018 Vitamin D deficiency 06/09/2015 12/26/2015 HyperCKemia 05/06/2015 12/26/2015 Elevated aldolase level 05/06/2015 12/26/19 16 Chronic pain of both knees 05/06/201512/25 Pain in joint, multiple sites 05/06/2015 Myalgia 05/06/2015 12/26/2015 Fatigue 05/06/2015 12/26/2015 Malaise and fatigue 03/24/2015 12/26/2015 Gastroesophageal reflux disease without esophagi tis 02/23/2015 12/26/2015 Laryngitis 02/23/2015 12/26/2015 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 10/28/2014 12/26/2015 Papanicolaou smear of cervix with low grade squamous intraepithelial lesion (LGSIL) 10/24/2014 12/25/2019 Pain in joint, ankle and foot 09/27/2014 ASCUS favor dysplasia 09/18/2014 12/26/2015 Visit for gynecologic examination 09/07/2014 12/26/2015 Postmenopausal HRT (hormone replacement therapy) 08/18/2014 12/26/2015 Overview: offered Gait abnormality 07/22/2014 12/26/2015 Weakness of both legs 07/22/2014 12/26/2015 Sprain of ankle, left 06/29/2014 12/26/2015 PCP (pneumocystis jiroveci pneumonia) 06/03/2014 12/26/2015 Acute respiratory failure with hypoxemia 015 12/26/2015 Overview: Increased O2 requirement overnight (2L to 5L) - bronchoscopy with BAL/TBLB tomorrow 8 AM. - NPO from midnight - hold tonight dose of lovenox. Radiation pneumonitis 05/11/2014 12/26/2015 Overview: 40 mg prednisone daily Immunodeficiency with predominant T-cell defect, unspecified 03/11/2014 12/26/2015 Urgency of micturation 03/04/2014 6 Urinary frequency 03/04/2014 12/26/2015 Arm pain, left 07/06/2013 12/26/2015 Back pain without radiation 07/06/201308/2015 Abnormal finding on imaging 07/06/201308/2015 Elevated sed rate 07/06/2013 12/26/2015 Hyperpigmentation of skin 03/31/20132015 Overview: --resolved --bilateral breast tissue and axilla --order mycolog cream --monitor Diarrhea 03/31/2013 12/26/2015 Overview: - c diff pending Mucositis (ulcerative) due to antineoplastic the rapy 03/24/2013 12/26/2015 Overview: --improved --oxy prn --mouth care measures. Reflux 03/23/2013 12/26/2015 Overview: --improved with protonix Elevated LFTs 03/22/2013 12/26/2015 Overview: --increased AST ALT during chemo, resolved. Excess fluid volume 03/21/2013 12/26/2015 Overview: --diuresis as needed --continue to monitor volume status CINV (chemotherapy-induced nausea and vomiting) 03/17/2013 10/13/2015 Overview: --Resolved --Ativan PRN (none used) Peripheral neuropathy 03/16/2013 12/26/2015 Overview: --gabapentin 300mg TID with increased symptoms, bedtime dose of gabapentin increased to 600mg with improvement reported, continue DVT prophylaxis 03/16/2013 12/26/2015 Overview: --platelet count decreasing, d/c heparin SQ --encourage ambulation Insomnia 03/16/2013 12/26/2015 Overview: --ambien PRN at HS, with relief, but with vivid dreams, ambien d/c --restoril at 30mg PRN at HS with relief, continue Chronic chest pain 03/16/2013 12/26/2015 Overview: --now resolved --since Hodgkin lymphoma diagnosis per patient Hospital discharge follow-up 03/16/201308/2015 Overview: --Patient will need to follow up with Dr. Unger after discharge Tachycardia 03/16/2013 12/26/2015 Overview: --patient taking atenolol 100mg BID at home, now BP running lower, decreased atenolol dose to 50mg BID with hypotension. --increase to 75mg BID, d/t tachycardia(HRs >110 while afebrile), HR now controlled, continue --monitor closely Electrolyte and fluid disorders not elsewhere cl assified 02/16/2013 12/26/2015 DISPOSITION AND FOLLOW-UP 10/27/20122015 Overview: 32 yo female from [place], [place]. Family involved with care, at bedside. plan to discharge patient home - will arrange with case management for post op care as needed - follow up in OPD in 7-10 days Post-op pain 10/27/2012 12/26/2015 Overview: currently well controlled with [employer] REPRESENTATIVE. will start PO pain meds today 10/27. tolerating percocet, pain relatively well controlled. Hodgkin's disease with nodular sclerosis 013 12/26/2015 Overview: Oncology history (per Dr. 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 Hodgkin's disease, unspecified 02/05/2012 0 05/11/2014 Vaginal bleeding 12/26/2015 Overview: --likely from thrombocytopenia. No menses in prior 8 months. Scant amount reported on 03/29 and 03/30, now resolved --monitor bleeding by counting pads --should f/u with her [employer] provider after BMT Premature menopause 12/26/2015 Postmenopausal atrophic vaginitis 12/26/2015 Dyspareunia 12/26/2015 documented as of this encounter (statuses as of 03/07/2022) [facility] History of Past illness Narrative* Problem Noted Date Resolved Date Menorrhagia with regular cycle 03/15/2017 1 03/03/2017 Overview: Added automatically from request for surgery [id number] History of pulmonary embolism 04/25/2016 Neoplastic (malignant) related fatigue 7 01/01/2018 Hidradenitis suppurativa 01/17/2016 018 Vitamin D deficiency 06/09/2015 12/26/2015 HyperCKemia 05/06/2015 12/26/2015 Elevated aldolase level 05/06/2015 12/26/19 16 Chronic pain of both knees 05/06/201512/25 Pain in joint, multiple sites 05/06/2015 Myalgia 05/06/2015 12/26/2015 Fatigue 05/06/2015 12/26/2015 Malaise and fatigue 03/24/2015 12/26/2015 Gastroesophageal reflux disease without esophagi tis 02/23/2015 12/26/2015 Laryngitis 02/23/2015 12/26/2015 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 10/28/2014 12/26/2015 Papanicolaou smear of cervix with low grade squamous intraepithelial lesion (LGSIL) 10/24/2014 12/25/2019 Pain in joint, ankle and foot 09/27/2014 ASCUS favor dysplasia 09/18/2014 12/26/2015 Visit for gynecologic examination 09/07/2014 12/26/2015 Postmenopausal HRT (hormone replacement therapy) 08/18/2014 12/26/2015 Overview: offered Gait abnormality 07/22/2014 12/26/2015 Weakness of both legs 07/22/2014 12/26/2015 Sprain of ankle, left 06/29/2014 12/26/2015 PCP (pneumocystis jiroveci pneumonia) 06/03/2014 12/26/2015 Acute respiratory failure with hypoxemia 015 12/26/2015 Overview: Increased O2 requirement overnight (2L to 5L) - bronchoscopy with BAL/TBLB tomorrow 8 AM. - NPO from midnight - hold tonight dose of lovenox. Radiation pneumonitis 05/11/2014 12/26/2015 Overview: 40 mg prednisone daily Immunodeficiency with predominant T-cell defect, unspecified 03/11/2014 12/26/2015 Urgency of micturation 03/04/2014 6 Urinary frequency 03/04/2014 12/26/2015 Arm pain, left 07/06/2013 12/26/2015 Back pain without radiation 07/06/201308/2015 Abnormal finding on imaging 07/06/201308/2015 Elevated sed rate 07/06/2013 12/26/2015 Hyperpigmentation of skin 03/31/20132015 Overview: --resolved --bilateral breast tissue and axilla --order mycolog cream --monitor Diarrhea 03/31/2013 12/26/2015 Overview: - c diff pending Mucositis (ulcerative) due to antineoplastic the rapy 03/24/2013 12/26/2015 Overview: --improved --oxy prn --mouth care measures. Reflux 03/23/2013 12/26/2015 Overview: --improved with protonix Elevated LFTs 03/22/2013 12/26/2015 Overview: --increased AST ALT during chemo, resolved. Excess fluid volume 03/21/2013 12/26/2015 Overview: --diuresis as needed --continue to monitor volume status CINV (chemotherapy-induced nausea and vomiting) 03/17/2013 10/13/2015 Overview: --Resolved --Ativan PRN (none used) Peripheral neuropathy 03/16/2013 12/26/2015 Overview: --gabapentin 300mg TID with increased symptoms, bedtime dose of gabapentin increased to 600mg with improvement reported, continue DVT prophylaxis 03/16/2013 12/26/2015 Overview: --platelet count decreasing, d/c heparin SQ --encourage ambulation Insomnia 03/16/2013 12/26/2015 Overview: --ambien PRN at HS, with relief, but with vivid dreams, jeffien d/c --restoril at 30mg PRN at HS with relief, continue Chronic chest pain 03/16/2013 12/26/2015 Overview: --now resolved --since Hodgkin lymphoma diagnosis per patient Hospital discharge follow-up 03/16/201308/2015 Overview: --Patient will need to follow up with Dr. Unger after discharge Tachycardia 03/16/2013 12/26/2015 Overview: --patient taking atenolol 100mg BID at home, now BP running lower, decreased atenolol dose to 50mg BID with hypotension. --increase to 75mg BID, d/t tachycardia(HRs >110 while afebrile), HR now controlled, continue --monitor closely Electrolyte and fluid disorders not elsewhere cl assified 02/16/2013 12/26/2015 DISPOSITION AND FOLLOW-UP 10/27/20122015 Overview: 32 yo female from [place], [place]. Family involved with care, at bedside. plan to discharge patient home - will arrange with case management for post op care as needed - follow up in OPD in 7-10 days Post-op pain 10/27/2012 12/26/2015 Overview: currently well controlled with [employer] REPRESENTATIVE. will start PO pain meds today 10/27. tolerating percocet, pain relatively well controlled. Hodgkin's disease with nodular sclerosis 013 12/26/2015 Overview: Oncology history (per Dr. 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 Hodgkin's disease, unspecified 02/05/2012 0 05/11/2014 Vaginal bleeding 12/26/2015 Overview: --likely from thrombocytopenia. No menses in prior 8 months. Scant amount reported on 03/29 and 03/30, now resolved --monitor bleeding by counting pads --should f/u with her [employer] provider after BMT Premature menopause 12/26/2015 Postmenopausal atrophic vaginitis 12/26/2015 Dyspareunia 12/26/2015 documented as of this encounter (statuses as of 03/15/2022) [facility] History of Past illness Narrative* Problem Noted Date Resolved Date Menorrhagia with regular cycle 03/15/2017 1 03/03/2017 Overview: Added automatically from request for surgery [id number] History of pulmonary embolism 04/25/2016 Neoplastic (malignant) related fatigue 7 01/01/2018 Hidradenitis suppurativa 01/17/2016 018 Vitamin D deficiency 06/09/2015 12/26/2015 HyperCKemia 05/06/2015 12/26/2015 Elevated aldolase level 05/06/2015 12/26/19 16 Chronic pain of both knees 05/06/201512/25 Pain in joint, multiple sites 05/06/2015 Myalgia 05/06/2015 12/26/2015 Fatigue 05/06/2015 12/26/2015 Malaise and fatigue 03/24/2015 12/26/2015 Gastroesophageal reflux disease without esophagi tis 02/23/2015 12/26/2015 Laryngitis 02/23/2015 12/26/2015 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 10/28/2014 12/26/2015 Papanicolaou smear of cervix with low grade squamous intraepithelial lesion (LGSIL) 10/24/2014 12/25/2019 Pain in joint, ankle and foot 09/27/2014 ASCUS favor dysplasia 09/18/2014 12/26/2015 Visit for gynecologic examination 09/07/2014 12/26/2015 Postmenopausal HRT (hormone replacement therapy) 08/18/2014 12/26/2015 Overview: offered Gait abnormality 07/22/2014 12/26/2015 Weakness of both legs 07/22/2014 12/26/2015 Sprain of ankle, left 06/29/2014 12/26/2015 PCP (pneumocystis jiroveci pneumonia) 06/03/2014 12/26/2015 Acute respiratory failure with hypoxemia 015 12/26/2015 Overview: Increased O2 requirement overnight (2L to 5L) - bronchoscopy with BAL/TBLB tomorrow 8 AM. - NPO from midnight - hold tonight dose of lovenox. Radiation pneumonitis 05/11/2014 12/26/2015 Overview: 40 mg prednisone daily Immunodeficiency with predominant T-cell defect, unspecified 03/11/2014 12/26/2015 Urgency of micturation 03/04/2014 6 Urinary frequency 03/04/2014 12/26/2015 Arm pain, left 07/06/2013 12/26/2015 Back pain without radiation 07/06/201308/2015 Abnormal finding on imaging 07/06/201308/2015 Elevated sed rate 07/06/2013 12/26/2015 Hyperpigmentation of skin 03/31/20132015 Overview: --resolved --bilateral breast tissue and axilla --order mycolog cream --monitor Diarrhea 03/31/2013 12/26/2015 Overview: - c diff pending Mucositis (ulcerative) due to antineoplastic the rapy 03/24/2013 12/26/2015 Overview: --improved --oxy prn --mouth care measures. Reflux 03/23/2013 12/26/2015 Overview: --improved with protonix Elevated LFTs 03/22/2013 12/26/2015 Overview: --increased AST ALT during chemo, resolved. Excess fluid volume 03/21/2013 12/26/2015 Overview: --diuresis as needed --continue to monitor volume status CINV (chemotherapy-induced nausea and vomiting) 03/17/2013 10/13/2015 Overview: --Resolved --Ativan PRN (none used) Peripheral neuropathy 03/16/2013 12/26/2015 Overview: --gabapentin 300mg TID with increased symptoms, bedtime dose of gabapentin increased to 600mg with improvement reported, continue DVT prophylaxis 03/16/2013 12/26/2015 Overview: --platelet count decreasing, d/c heparin SQ --encourage ambulation Insomnia 03/16/2013 12/26/2015 Overview: --ambien PRN at HS, with relief, but with vivid dreams, ambien d/c --restoril at 30mg PRN at HS with relief, continue Chronic chest pain 03/16/2013 12/26/2015 Overview: --now resolved --since Hodgkin lymphoma diagnosis per patient Hospital discharge follow-up 03/16/201308/2015 Overview: --Patient will need to follow up with Dr. Unger after discharge Tachycardia 03/16/2013 12/26/2015 Overview: --patient taking atenolol 100mg BID at home, now BP running lower, decreased atenolol dose to 50mg BID with hypotension. --increase to 75mg BID, d/t tachycardia(HRs >110 while afebrile), HR now controlled, continue --monitor closely Electrolyte and fluid disorders not elsewhere cl assified 02/16/2013 12/26/2015 DISPOSITION AND FOLLOW-UP 10/27/20122015 Overview: 32 yo female from [place], [place]. Family involved with care, at bedside. plan to discharge patient home - will arrange with case management for post op care as needed - follow up in OPD in 7-10 days Post-op pain 10/27/2012 12/26/2015 Overview: currently well controlled with [employer] REPRESENT[employer]IVE. will start PO pain meds today 10/27. tolerating percocet, pain relatively well controlled. Hodgkin's disease with nodular sclerosis 013 12/26/2015 Overview: Oncology history (per Dr. 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 Hodgkin's disease, unspecified 02/05/2012 0 05/11/2014 Vaginal bleeding 12/26/2015 Overview: --likely from thrombocytopenia. No menses in prior 8 months. Scant amount reported on 03/29 and 03/30, now resolved --monitor bleeding by counting pads --should f/u with her [employer] provider after BMT Premature menopause 12/26/2015 Postmenopausal atrophic vaginitis 12/26/2015 Dyspareunia 12/26/2015 documented as of this encounter (statuses as of 03/15/2022) [facility] History of Past illness Narrative* Problem Noted Date Resolved Date Menorrhagia with regular cycle 03/15/2017 1 03/03/2017 Overview: Added automatically from request for surgery [id number] History of pulmonary embolism 04/25/2016 Neoplastic (malignant) related fatigue 7 01/01/2018 Hidradenitis suppurativa 01/17/2016 018 Vitamin D deficiency 06/09/2015 12/26/2015 HyperCKemia 05/06/2015 12/26/2015 Elevated aldolase level 05/06/2015 12/26/19 16 Chronic pain of both knees 05/06/201512/25 Pain in joint, multiple sites 05/06/2015 Myalgia 05/06/2015 12/26/2015 Fatigue 05/06/2015 12/26/2015 Malaise and fatigue 03/24/2015 12/26/2015 Gastroesophageal reflux disease without esophagi tis 02/23/2015 12/26/2015 Laryngitis 02/23/2015 12/26/2015 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 10/28/2014 12/26/2015 Papanicolaou smear of cervix with low grade squamous intraepithelial lesion (LGSIL) 10/24/2014 12/25/2019 Pain in joint, ankle and foot 09/27/2014 ASCUS favor dysplasia 09/18/2014 12/26/2015 Visit for gynecologic examination 09/07/2014 12/26/2015 Postmenopausal HRT (hormone replacement therapy) 08/18/2014 12/26/2015 Overview: offered Gait abnormality 07/22/2014 12/26/2015 Weakness of both legs 07/22/2014 12/26/2015 Sprain of ankle, left 06/29/2014 12/26/2015 PCP (pneumocystis jiroveci pneumonia) 06/03/2014 12/26/2015 Acute respiratory failure with hypoxemia 015 12/26/2015 Overview: Increased O2 requirement overnight (2L to 5L) - bronchoscopy with BAL/TBLB tomorrow 8 AM. - NPO from midnight - hold tonight dose of lovenox. Radiation pneumonitis 05/11/2014 12/26/2015 Overview: 40 mg prednisone daily Immunodeficiency with predominant T-cell defect, unspecified 03/11/2014 12/26/2015 Urgency of micturation 03/04/2014 6 Urinary frequency 03/04/2014 12/26/2015 Arm pain, left 07/06/2013 12/26/2015 Back pain without radiation 07/06/201308/2015 Abnormal finding on imaging 07/06/201308/2015 Elevated sed rate 07/06/2013 12/26/2015 Hyperpigmentation of skin 03/31/20132015 Overview: --resolved --bilateral breast tissue and axilla --order mycolog cream --monitor Diarrhea 03/31/2013 12/26/2015 Overview: - c diff pending Mucositis (ulcerative) due to antineoplastic the rapy 03/24/2013 12/26/2015 Overview: --improved --oxy prn --mouth care measures. Reflux 03/23/2013 12/26/2015 Overview: --improved with protonix Elevated LFTs 03/22/2013 12/26/2015 Overview: --increased AST ALT during chemo, resolved. Excess fluid volume 03/21/2013 12/26/2015 Overview: --diuresis as needed --continue to monitor volume status CINV (chemotherapy-induced nausea and vomiting) 03/17/2013 10/13/2015 Overview: --Resolved --Ativan PRN (none used) Peripheral neuropathy 03/16/2013 12/26/2015 Overview: --gabapentin 300mg TID with increased symptoms, bedtime dose of gabapentin increased to 600mg with improvement reported, continue DVT prophylaxis 03/16/2013 12/26/2015 Overview: --platelet count decreasing, d/c heparin SQ --encourage ambulation Insomnia 03/16/2013 12/26/2015 Overview: --ambien PRN at HS, with relief, but with vivid dreams, ambien d/c --restoril at 30mg PRN at HS with relief, continue Chronic chest pain 03/16/2013 12/26/2015 Overview: --now resolved --since Hodgkin lymphoma diagnosis per patient Hospital discharge follow-up 03/16/201308/2015 Overview: --Patient will need to follow up with Dr. Unger after discharge Tachycardia 03/16/2013 12/26/2015 Overview: --patient taking atenolol 100mg BID at home, now BP running lower, decreased atenolol dose to 50mg BID with hypotension. --increase to 75mg BID, d/t tachycardia(HRs >110 while afebrile), HR now controlled, continue --monitor closely Electrolyte and fluid disorders not elsewhere cl assified 02/16/2013 12/26/2015 DISPOSITION AND FOLLOW-UP 10/27/20122015 Overview: 32 yo female from [place], [place]. Family involved with care, at bedside. plan to discharge patient home - will arrange with case management for post op care as needed - follow up in OPD in 7-10 days Post-op pain 10/27/2012 12/26/2015 Overview: currently well controlled with [employer] REPRESENTATIVE. will start PO pain meds today 10/27. tolerating percocet, pain relatively well controlled. Hodgkin's disease with nodular sclerosis 013 12/26/2015 Overview: Oncology history (per Dr. 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 Hodgkin's disease, unspecified 02/05/2012 0 05/11/2014 Vaginal bleeding 12/26/2015 Overview: --likely from thrombocytopenia. No menses in prior 8 months. Scant amount reported on 03/29 and 03/30, now resolved --monitor bleeding by counting pads --should f/u with her [employer] provider after BMT Premature menopause 12/26/2015 Postmenopausal atrophic vaginitis 12/26/2015 Dyspareunia 12/26/2015 documented as of this encounter (statuses as of 03/19/2022) [facility] History of Past illness Narrative* Problem Noted Date Resolved Date Menorrhagia with regular cycle 03/15/2017 1 03/03/2017 Overview: Added automatically from request for surgery [id number] History of pulmonary embolism 04/25/2016 Neoplastic (malignant) related fatigue 7 01/01/2018 Hidradenitis suppurativa 01/17/2016 018 Vitamin D deficiency 06/09/2015 12/26/2015 HyperCKemia 05/06/2015 12/26/2015 Elevated aldolase level 05/06/2015 12/26/19 16 Chronic pain of both knees 05/06/201512/25 Pain in joint, multiple sites 05/06/2015 Myalgia 05/06/2015 12/26/2015 Fatigue 05/06/2015 12/26/2015 Malaise and fatigue 03/24/2015 12/26/2015 Gastroesophageal reflux disease without esophagi tis 02/23/2015 12/26/2015 Laryngitis 02/23/2015 12/26/2015 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 10/28/2014 12/26/2015 Papanicolaou smear of cervix with low grade squamous intraepithelial lesion (LGSIL) 10/24/2014 12/25/2019 Pain in joint, ankle and foot 09/27/2014 ASCUS favor dysplasia 09/18/2014 12/26/2015 Visit for gynecologic examination 09/07/2014 12/26/2015 Postmenopausal HRT (hormone replacement therapy) 08/18/2014 12/26/2015 Overview: offered Gait abnormality 07/22/2014 12/26/2015 Weakness of both legs 07/22/2014 12/26/2015 Sprain of ankle, left 06/29/2014 12/26/2015 PCP (pneumocystis jiroveci pneumonia) 06/03/2014 12/26/2015 Acute respiratory failure with hypoxemia 015 12/26/2015 Overview: Increased O2 requirement overnight (2L to 5L) - bronchoscopy with BAL/TBLB tomorrow 8 AM. - NPO from midnight - hold tonight dose of lovenox. Radiation pneumonitis 05/11/2014 12/26/2015 Overview: 40 mg prednisone daily Immunodeficiency with predominant T-cell defect, unspecified 03/11/2014 12/26/2015 Urgency of micturation 03/04/2014 6 Urinary frequency 03/04/2014 12/26/2015 Arm pain, left 07/06/2013 12/26/2015 Back pain without radiation 07/06/201308/2015 Abnormal finding on imaging 07/06/201308/2015 Elevated sed rate 07/06/2013 12/26/2015 Hyperpigmentation of skin 03/31/20132015 Overview: --resolved --bilateral breast tissue and axilla --order mycolog cream --monitor Diarrhea 03/31/2013 12/26/2015 Overview: - c diff pending Mucositis (ulcerative) due to antineoplastic the rapy 03/24/2013 12/26/2015 Overview: --improved --oxy prn --mouth care measures. Reflux 03/23/2013 12/26/2015 Overview: --improved with protonix Elevated LFTs 03/22/2013 12/26/2015 Overview: --increased AST ALT during chemo, resolved. Excess fluid volume 03/21/2013 12/26/2015 Overview: --diuresis as needed --continue to monitor volume status CINV (chemotherapy-induced nausea and vomiting) 03/17/2013 10/13/2015 Overview: --Resolved --Ativan PRN (none used) Peripheral neuropathy 03/16/2013 12/26/2015 Overview: --gabapentin 300mg TID with increased symptoms, bedtime dose of gabapentin increased to 600mg with improvement reported, continue DVT prophylaxis 03/16/2013 12/26/2015 Overview: --platelet count decreasing, d/c heparin SQ --encourage ambulation Insomnia 03/16/2013 12/26/2015 Overview: --ambien PRN at HS, with relief, but with vivid dreams, bright d/c --restoril at 30mg PRN at HS with relief, continue Chronic chest pain 03/16/2013 12/26/2015 Overview: --now resolved --since Hodgkin lymphoma diagnosis per patient Hospital discharge follow-up 03/16/201308/2015 Overview: --Patient will need to follow up with Dr. Unger after discharge Tachycardia 03/16/2013 12/26/2015 Overview: --patient taking atenolol 100mg BID at home, now BP running lower, decreased atenolol dose to 50mg BID with hypotension. --increase to 75mg BID, d/t tachycardia(HRs >110 while afebrile), HR now controlled, continue --monitor closely Electrolyte and fluid disorders not elsewhere cl assified 02/16/2013 12/26/2015 DISPOSITION AND FOLLOW-UP 10/27/20122015 Overview: 32 yo female from [place], [place]. Family involved with care, at bedside. plan to discharge patient home - will arrange with case management for post op care as needed - follow up in OPD in 7-10 days Post-op pain 10/27/2012 12/26/2015 Overview: currently well controlled with [employer] REPRESENTATIVE. will start PO pain meds today 10/27. tolerating percocet, pain relatively well controlled. Hodgkin's disease with nodular sclerosis 013 12/26/2015 Overview: Oncology history (per Dr. 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 Hodgkin's disease, unspecified 02/05/2012 0 05/11/2014 Vaginal bleeding 12/26/2015 Overview: --likely from thrombocytopenia. No menses in prior 8 months. Scant amount reported on 03/29 and 03/30, now resolved --monitor bleeding by counting pads --should f/u with her [employer] provider after BMT Premature menopause 12/26/2015 Postmenopausal atrophic vaginitis 12/26/2015 Dyspareunia 12/26/2015 documented as of this encounter (statuses as of 03/22/2022) [facility] History of Past illness Narrative* Problem Noted Date Resolved Date Menorrhagia with regular cycle 03/15/2017 1 03/03/2017 Overview: Added automatically from request for surgery [id number] History of pulmonary embolism 04/25/2016 Neoplastic (malignant) related fatigue 7 01/01/2018 Hidradenitis suppurativa 01/17/2016 018 Vitamin D deficiency 06/09/2015 12/26/2015 HyperCKemia 05/06/2015 12/26/2015 Elevated aldolase level 05/06/2015 12/26/19 16 Chronic pain of both knees 05/06/201512/25 Pain in joint, multiple sites 05/06/2015 Myalgia 05/06/2015 12/26/2015 Fatigue 05/06/2015 12/26/2015 Malaise and fatigue 03/24/2015 12/26/2015 Gastroesophageal reflux disease without esophagi tis 02/23/2015 12/26/2015 Laryngitis 02/23/2015 12/26/2015 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 10/28/2014 12/26/2015 Papanicolaou smear of cervix with low grade squamous intraepithelial lesion (LGSIL) 10/24/2014 12/25/2019 Pain in joint, ankle and foot 09/27/2014 ASCUS favor dysplasia 09/18/2014 12/26/2015 Visit for gynecologic examination 09/07/2014 12/26/2015 Postmenopausal HRT (hormone replacement therapy) 08/18/2014 12/26/2015 Overview: offered Gait abnormality 07/22/2014 12/26/2015 Weakness of both legs 07/22/2014 12/26/2015 Sprain of ankle, left 06/29/2014 12/26/2015 PCP (pneumocystis jiroveci pneumonia) 06/03/2014 12/26/2015 Acute respiratory failure with hypoxemia 015 12/26/2015 Overview: Increased O2 requirement overnight (2L to 5L) - bronchoscopy with BAL/TBLB tomorrow 8 AM. - NPO from midnight - hold tonight dose of lovenox. Radiation pneumonitis 05/11/2014 12/26/2015 Overview: 40 mg prednisone daily Immunodeficiency with predominant T-cell defect, unspecified 03/11/2014 12/26/2015 Urgency of micturation 03/04/2014 6 Urinary frequency 03/04/2014 12/26/2015 Arm pain, left 07/06/2013 12/26/2015 Back pain without radiation 07/06/201308/2015 Abnormal finding on imaging 07/06/201308/2015 Elevated sed rate 07/06/2013 12/26/2015 Hyperpigmentation of skin 03/31/20132015 Overview: --resolved --bilateral breast tissue and axilla --order mycolog cream --monitor Diarrhea 03/31/2013 12/26/2015 Overview: - c diff pending Mucositis (ulcerative) due to antineoplastic the rapy 03/24/2013 12/26/2015 Overview: --improved --oxy prn --mouth care measures. Reflux 03/23/2013 12/26/2015 Overview: --improved with protonix Elevated LFTs 03/22/2013 12/26/2015 Overview: --increased AST ALT during chemo, resolved. Excess fluid volume 03/21/2013 12/26/2015 Overview: --diuresis as needed --continue to monitor volume status CINV (chemotherapy-induced nausea and vomiting) 03/17/2013 10/13/2015 Overview: --Resolved --Ativan PRN (none used) Peripheral neuropathy 03/16/2013 12/26/2015 Overview: --gabapentin 300mg TID with increased symptoms, bedtime dose of gabapentin increased to 600mg with improvement reported, continue DVT prophylaxis 03/16/2013 12/26/2015 Overview: --platelet count decreasing, d/c heparin SQ --encourage ambulation Insomnia 03/16/2013 12/26/2015 Overview: --ambien PRN at HS, with relief, but with vivid dreams, ambien d/c --restoril at 30mg PRN at HS with relief, continue Chronic chest pain 03/16/2013 12/26/2015 Overview: --now resolved --since Hodgkin lymphoma diagnosis per patient Hospital discharge follow-up 03/16/201308/2015 Overview: --Patient will need to follow up with Dr. Unger after discharge Tachycardia 03/16/2013 12/26/2015 Overview: --patient taking atenolol 100mg BID at home, now BP running lower, decreased atenolol dose to 50mg BID with hypotension. --increase to 75mg BID, d/t tachycardia(HRs >110 while afebrile), HR now controlled, continue --monitor closely Electrolyte and fluid disorders not elsewhere cl assified 02/16/2013 12/26/2015 DISPOSITION AND FOLLOW-UP 10/27/20122015 Overview: 32 yo female from [place], [place]. Family involved with care, at bedside. plan to discharge patient home - will arrange with case management for post op care as needed - follow up in OPD in 7-10 days Post-op pain 10/27/2012 12/26/2015 Overview: currently well controlled with [employer] REPRESENTATIVE. will start PO pain meds today 10/27. tolerating percocet, pain relatively well controlled. Hodgkin's disease with nodular sclerosis 013 12/26/2015 Overview: Oncology history (per Dr. 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 Hodgkin's disease, unspecified 02/05/2012 0 05/11/2014 Vaginal bleeding 12/26/2015 Overview: --likely from thrombocytopenia. No menses in prior 8 months. Scant amount reported on 03/29 and 03/30, now resolved --monitor bleeding by counting pads --should f/u with her [employer] provider after BMT Premature menopause 12/26/2015 Postmenopausal atrophic vaginitis 12/26/2015 Dyspareunia 12/26/2015 documented as of this encounter (statuses as of 03/23/2022) [facility] History of Past illness Narrative* Problem Noted Date Resolved Date Menorrhagia with regular cycle 03/15/2017 1 03/03/2017 Overview: Added automatically from request for surgery [id number] History of pulmonary embolism 04/25/2016 Neoplastic (malignant) related fatigue 7 01/01/2018 Hidradenitis suppurativa 01/17/2016 018 Vitamin D deficiency 06/09/2015 12/26/2015 HyperCKemia 05/06/2015 12/26/2015 Elevated aldolase level 05/06/2015 12/26/19 16 Chronic pain of both knees 05/06/201512/25 Pain in joint, multiple sites 05/06/2015 Myalgia 05/06/2015 12/26/2015 Fatigue 05/06/2015 12/26/2015 Malaise and fatigue 03/24/2015 12/26/2015 Gastroesophageal reflux disease without esophagi tis 02/23/2015 12/26/2015 Laryngitis 02/23/2015 12/26/2015 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 10/28/2014 12/26/2015 Papanicolaou smear of cervix with low grade squamous intraepithelial lesion (LGSIL) 10/24/2014 12/25/2019 Pain in joint, ankle and foot 09/27/2014 ASCUS favor dysplasia 09/18/2014 12/26/2015 Visit for gynecologic examination 09/07/2014 12/26/2015 Postmenopausal HRT (hormone replacement therapy) 08/18/2014 12/26/2015 Overview: offered Gait abnormality 07/22/2014 12/26/2015 Weakness of both legs 07/22/2014 12/26/2015 Sprain of ankle, left 06/29/2014 12/26/2015 PCP (pneumocystis jiroveci pneumonia) 06/03/2014 12/26/2015 Acute respiratory failure with hypoxemia 015 12/26/2015 Overview: Increased O2 requirement overnight (2L to 5L) - bronchoscopy with BAL/TBLB tomorrow 8 AM. - NPO from midnight - hold tonight dose of lovenox. Radiation pneumonitis 05/11/2014 12/26/2015 Overview: 40 mg prednisone daily Immunodeficiency with predominant T-cell defect, unspecified 03/11/2014 12/26/2015 Urgency of micturation 03/04/2014 6 Urinary frequency 03/04/2014 12/26/2015 Arm pain, left 07/06/2013 12/26/2015 Back pain without radiation 07/06/201308/2015 Abnormal finding on imaging 07/06/201308/2015 Elevated sed rate 07/06/2013 12/26/2015 Hyperpigmentation of skin 03/31/20132015 Overview: --resolved --bilateral breast tissue and axilla --order mycolog cream --monitor Diarrhea 03/31/2013 12/26/2015 Overview: - c diff pending Mucositis (ulcerative) due to antineoplastic the rapy 03/24/2013 12/26/2015 Overview: --improved --oxy prn --mouth care measures. Reflux 03/23/2013 12/26/2015 Overview: --improved with protonix Elevated LFTs 03/22/2013 12/26/2015 Overview: --increased AST ALT during chemo, resolved. Excess fluid volume 03/21/2013 12/26/2015 Overview: --diuresis as needed --continue to monitor volume status CINV (chemotherapy-induced nausea and vomiting) 03/17/2013 10/13/2015 Overview: --Resolved --Ativan PRN (none used) Peripheral neuropathy 03/16/2013 12/26/2015 Overview: --gabapentin 300mg TID with increased symptoms, bedtime dose of gabapentin increased to 600mg with improvement reported, continue DVT prophylaxis 03/16/2013 12/26/2015 Overview: --platelet count decreasing, d/c heparin SQ --encourage ambulation Insomnia 03/16/2013 12/26/2015 Overview: --ambien PRN at HS, with relief, but with vivid dreams, ambien d/c --restoril at 30mg PRN at HS with relief, continue Chronic chest pain 03/16/2013 12/26/2015 Overview: --now resolved --since Hodgkin lymphoma diagnosis per patient Hospital discharge follow-up 03/16/201308/2015 Overview: --Patient will need to follow up with Dr. Unger after discharge Tachycardia 03/16/2013 12/26/2015 Overview: --patient taking atenolol 100mg BID at home, now BP running lower, decreased atenolol dose to 50mg BID with hypotension. --increase to 75mg BID, d/t tachycardia(HRs >110 while afebrile), HR now controlled, continue --monitor closely Electrolyte and fluid disorders not elsewhere cl assified 02/16/2013 12/26/2015 DISPOSITION AND FOLLOW-UP 10/27/20122015 Overview: 32 yo female from [place], [place]. Family involved with care, at bedside. plan to discharge patient home - will arrange with case management for post op care as needed - follow up in OPD in 7-10 days Post-op pain 10/27/2012 12/26/2015 Overview: currently well controlled with [employer] REPRESENT[employer]IVE. will start PO pain meds today 10/27. tolerating percocet, pain relatively well controlled. Hodgkin's disease with nodular sclerosis 013 12/26/2015 Overview: Oncology history (per Dr. 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 Hodgkin's disease, unspecified 02/05/2012 0 05/11/2014 Vaginal bleeding 12/26/2015 Overview: --likely from thrombocytopenia. No menses in prior 8 months. Scant amount reported on 03/29 and 03/30, now resolved --monitor bleeding by counting pads --should f/u with her [employer] [employer] provider after BMT Premature menopause 12/26/2015 Postmenopausal atrophic vaginitis 12/26/2015 Dyspareunia 12/26/2015 documented as of this encounter (statuses as of 03/24/2022) [facility] History of Past illness Narrative* Problem Noted Date Resolved Date Menorrhagia with regular cycle 03/15/2017 1 03/03/2017 Overview: Added automatically from request for surgery [id number] History of pulmonary embolism 04/25/2016 Neoplastic (malignant) related fatigue 7 01/01/2018 Hidradenitis suppurativa 01/17/2016 018 Vitamin D deficiency 06/09/2015 12/26/2015 HyperCKemia 05/06/2015 12/26/2015 Elevated aldolase level 05/06/2015 12/26/19 16 Chronic pain of both knees 05/06/201512/25 Pain in joint, multiple sites 05/06/2015 Myalgia 05/06/2015 12/26/2015 Fatigue 05/06/2015 12/26/2015 Malaise and fatigue 03/24/2015 12/26/2015 Gastroesophageal reflux disease without esophagi tis 02/23/2015 12/26/2015 Laryngitis 02/23/2015 12/26/2015 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 10/28/2014 12/26/2015 Papanicolaou smear of cervix with low grade squamous intraepithelial lesion (LGSIL) 10/24/2014 12/25/2019 Pain in joint, ankle and foot 09/27/2014 ASCUS favor dysplasia 09/18/2014 12/26/2015 Visit for gynecologic examination 09/07/2014 12/26/2015 Postmenopausal HRT (hormone replacement therapy) 08/18/2014 12/26/2015 Overview: offered Gait abnormality 07/22/2014 12/26/2015 Weakness of both legs 07/22/2014 12/26/2015 Sprain of ankle, left 06/29/2014 12/26/2015 PCP (pneumocystis jiroveci pneumonia) 06/03/2014 12/26/2015 Acute respiratory failure with hypoxemia 015 12/26/2015 Overview: Increased O2 requirement overnight (2L to 5L) - bronchoscopy with BAL/TBLB tomorrow 8 AM. - NPO from midnight - hold tonight dose of lovenox. Radiation pneumonitis 05/11/2014 12/26/2015 Overview: 40 mg prednisone daily Immunodeficiency with predominant T-cell defect, unspecified 03/11/2014 12/26/2015 Urgency of micturation 03/04/2014 6 Urinary frequency 03/04/2014 12/26/2015 Arm pain, left 07/06/2013 12/26/2015 Back pain without radiation 07/06/201308/2015 Abnormal finding on imaging 07/06/201308/2015 Elevated sed rate 07/06/2013 12/26/2015 Hyperpigmentation of skin 03/31/20132015 Overview: --resolved --bilateral breast tissue and axilla --order mycolog cream --monitor Diarrhea 03/31/2013 12/26/2015 Overview: - c diff pending Mucositis (ulcerative) due to antineoplastic the rapy 03/24/2013 12/26/2015 Overview: --improved --oxy prn --mouth care measures. Reflux 03/23/2013 12/26/2015 Overview: --improved with protonix Elevated LFTs 03/22/2013 12/26/2015 Overview: --increased AST ALT during chemo, resolved. Excess fluid volume 03/21/2013 12/26/2015 Overview: --diuresis as needed --continue to monitor volume status CINV (chemotherapy-induced nausea and vomiting) 03/17/2013 10/13/2015 Overview: --Resolved --Ativan PRN (none used) Peripheral neuropathy 03/16/2013 12/26/2015 Overview: --gabapentin 300mg TID with increased symptoms, bedtime dose of gabapentin increased to 600mg with improvement reported, continue DVT prophylaxis 03/16/2013 12/26/2015 Overview: --platelet count decreasing, d/c heparin SQ --encourage ambulation Insomnia 03/16/2013 12/26/2015 Overview: --ambien PRN at HS, with relief, but with vivid dreams, bright d/c --restoril at 30mg PRN at HS with relief, continue Chronic chest pain 03/16/2013 12/26/2015 Overview: --now resolved --since Hodgkin lymphoma diagnosis per patient Hospital discharge follow-up 03/16/201308/2015 Overview: --Patient will need to follow up with Dr. Unger after discharge Tachycardia 03/16/2013 12/26/2015 Overview: --patient taking atenolol 100mg BID at home, now BP running lower, decreased atenolol dose to 50mg BID with hypotension. --increase to 75mg BID, d/t tachycardia(HRs >110 while afebrile), HR now controlled, continue --monitor closely Electrolyte and fluid disorders not elsewhere cl assified 02/16/2013 12/26/2015 DISPOSITION AND FOLLOW-UP 10/27/20122015 Overview: 32 yo female from [place], [place]. Family involved with care, at bedside. plan to discharge patient home - will arrange with case management for post op care as needed - follow up in OPD in 7-10 days Post-op pain 10/27/2012 12/26/2015 Overview: currently well controlled with [employer] REPRESENT[employer]IVE. will start PO pain meds today 10/27. tolerating percocet, pain relatively well controlled. Hodgkin's disease with nodular sclerosis 013 12/26/2015 Overview: Oncology history (per Dr. 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 Hodgkin's disease, unspecified 02/05/2012 0 05/11/2014 Vaginal bleeding 12/26/2015 Overview: --likely from thrombocytopenia. No menses in prior 8 months. Scant amount reported on 03/29 and 03/30, now resolved --monitor bleeding by counting pads --should f/u with her [employer] provider after BMT Premature menopause 12/26/2015 Postmenopausal atrophic vaginitis 12/26/2015 Dyspareunia 12/26/2015 documented as of this encounter (statuses as of 03/26/2022) [facility] History of Past illness Narrative* Problem Noted Date Resolved Date Menorrhagia with regular cycle 03/15/2017 1 03/03/2017 Overview: Added automatically from request for surgery [id number] History of pulmonary embolism 04/25/2016 Neoplastic (malignant) related fatigue 7 01/01/2018 Hidradenitis suppurativa 01/17/2016 018 Vitamin D deficiency 06/09/2015 12/26/2015 HyperCKemia 05/06/2015 12/26/2015 Elevated aldolase level 05/06/2015 12/26/19 16 Chronic pain of both knees 05/06/201512/25 Pain in joint, multiple sites 05/06/2015 Myalgia 05/06/2015 12/26/2015 Fatigue 05/06/2015 12/26/2015 Malaise and fatigue 03/24/2015 12/26/2015 Gastroesophageal reflux disease without esophagi tis 02/23/2015 12/26/2015 Laryngitis 02/23/2015 12/26/2015 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 10/28/2014 12/26/2015 Papanicolaou smear of cervix with low grade squamous intraepithelial lesion (LGSIL) 10/24/2014 12/25/2019 Pain in joint, ankle and foot 09/27/2014 ASCUS favor dysplasia 09/18/2014 12/26/2015 Visit for gynecologic examination 09/07/2014 12/26/2015 Postmenopausal HRT (hormone replacement therapy) 08/18/2014 12/26/2015 Overview: offered Gait abnormality 07/22/2014 12/26/2015 Weakness of both legs 07/22/2014 12/26/2015 Sprain of ankle, left 06/29/2014 12/26/2015 PCP (pneumocystis jiroveci pneumonia) 06/03/2014 12/26/2015 Acute respiratory failure with hypoxemia 015 12/26/2015 Overview: Increased O2 requirement overnight (2L to 5L) - bronchoscopy with BAL/TBLB tomorrow 8 AM. - NPO from midnight - hold tonight dose of lovenox. Radiation pneumonitis 05/11/2014 12/26/2015 Overview: 40 mg prednisone daily Immunodeficiency with predominant T-cell defect, unspecified 03/11/2014 12/26/2015 Urgency of micturation 03/04/2014 6 Urinary frequency 03/04/2014 12/26/2015 Arm pain, left 07/06/2013 12/26/2015 Back pain without radiation 07/06/201308/2015 Abnormal finding on imaging 07/06/201308/2015 Elevated sed rate 07/06/2013 12/26/2015 Hyperpigmentation of skin 03/31/20132015 Overview: --resolved --bilateral breast tissue and axilla --order mycolog cream --monitor Diarrhea 03/31/2013 12/26/2015 Overview: - c diff pending Mucositis (ulcerative) due to antineoplastic the rapy 03/24/2013 12/26/2015 Overview: --improved --oxy prn --mouth care measures. Reflux 03/23/2013 12/26/2015 Overview: --improved with protonix Elevated LFTs 03/22/2013 12/26/2015 Overview: --increased AST ALT during chemo, resolved. Excess fluid volume 03/21/2013 12/26/2015 Overview: --diuresis as needed --continue to monitor volume status CINV (chemotherapy-induced nausea and vomiting) 03/17/2013 10/13/2015 Overview: --Resolved --Ativan PRN (none used) Peripheral neuropathy 03/16/2013 12/26/2015 Overview: --gabapentin 300mg TID with increased symptoms, bedtime dose of gabapentin increased to 600mg with improvement reported, continue DVT prophylaxis 03/16/2013 12/26/2015 Overview: --platelet count decreasing, d/c heparin SQ --encourage ambulation Insomnia 03/16/2013 12/26/2015 Overview: --ambien PRN at HS, with relief, but with vivid dreams, ambien d/c --restoril at 30mg PRN at HS with relief, continue Chronic chest pain 03/16/2013 12/26/2015 Overview: --now resolved --since Hodgkin lymphoma diagnosis per patient Hospital discharge follow-up 03/16/201308/2015 Overview: --Patient will need to follow up with Dr. Unger after discharge Tachycardia 03/16/2013 12/26/2015 Overview: --patient taking atenolol 100mg BID at home, now BP running lower, decreased atenolol dose to 50mg BID with hypotension. --increase to 75mg BID, d/t tachycardia(HRs >110 while afebrile), HR now controlled, continue --monitor closely Electrolyte and fluid disorders not elsewhere cl assified 02/16/2013 12/26/2015 DISPOSITION AND FOLLOW-UP 10/27/20122015 Overview: 32 yo female from [place], [place]. Family involved with care, at bedside. plan to discharge patient home - will arrange with case management for post op care as needed - follow up in OPD in 7-10 days Post-op pain 10/27/2012 12/26/2015 Overview: currently well controlled with [employer] REPRESENT[employer]IVE. will start PO pain meds today 10/27. tolerating percocet, pain relatively well controlled. Hodgkin's disease with nodular sclerosis 013 12/26/2015 Overview: Oncology history (per Dr. 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 Hodgkin's disease, unspecified 02/05/2012 0 05/11/2014 Vaginal bleeding 12/26/2015 Overview: --likely from thrombocytopenia. No menses in prior 8 months. Scant amount reported on 03/29 and 03/30, now resolved --monitor bleeding by counting pads --should f/u with her [employer] provider after BMT Premature menopause 12/26/2015 Postmenopausal atrophic vaginitis 12/26/2015 Dyspareunia 12/26/2015 documented as of this encounter (statuses as of 03/30/2022) [facility] History of Past illness Narrative* Problem Noted Date Resolved Date Menorrhagia with regular cycle 03/15/2017 1 03/03/2017 Overview: Added automatically from request for surgery [id number] History of pulmonary embolism 04/25/2016 Neoplastic (malignant) related fatigue 7 01/01/2018 Hidradenitis suppurativa 01/17/2016 018 Vitamin D deficiency 06/09/2015 12/26/2015 HyperCKemia 05/06/2015 12/26/2015 Elevated aldolase level 05/06/2015 12/26/19 16 Chronic pain of both knees 05/06/201512/25 Pain in joint, multiple sites 05/06/2015 Myalgia 05/06/2015 12/26/2015 Fatigue 05/06/2015 12/26/2015 Malaise and fatigue 03/24/2015 12/26/2015 Gastroesophageal reflux disease without esophagi tis 02/23/2015 12/26/2015 Laryngitis 02/23/2015 12/26/2015 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 10/28/2014 12/26/2015 Papanicolaou smear of cervix with low grade squamous intraepithelial lesion (LGSIL) 10/24/2014 12/25/2019 Pain in joint, ankle and foot 09/27/2014 ASCUS favor dysplasia 09/18/2014 12/26/2015 Visit for gynecologic examination 09/07/2014 12/26/2015 Postmenopausal HRT (hormone replacement therapy) 08/18/2014 12/26/2015 Overview: offered Gait abnormality 07/22/2014 12/26/2015 Weakness of both legs 07/22/2014 12/26/2015 Sprain of ankle, left 06/29/2014 12/26/2015 PCP (pneumocystis jiroveci pneumonia) 06/03/2014 12/26/2015 Acute respiratory failure with hypoxemia 015 12/26/2015 Overview: Increased O2 requirement overnight (2L to 5L) - bronchoscopy with BAL/TBLB tomorrow 8 AM. - NPO from midnight - hold tonight dose of lovenox. Radiation pneumonitis 05/11/2014 12/26/2015 Overview: 40 mg prednisone daily Immunodeficiency with predominant T-cell defect, unspecified 03/11/2014 12/26/2015 Urgency of micturation 03/04/2014 6 Urinary frequency 03/04/2014 12/26/2015 Arm pain, left 07/06/2013 12/26/2015 Back pain without radiation 07/06/201308/2015 Abnormal finding on imaging 07/06/201308/2015 Elevated sed rate 07/06/2013 12/26/2015 Hyperpigmentation of skin 03/31/20132015 Overview: --resolved --bilateral breast tissue and axilla --order mycolog cream --monitor Diarrhea 03/31/2013 12/26/2015 Overview: - c diff pending Mucositis (ulcerative) due to antineoplastic the rapy 03/24/2013 12/26/2015 Overview: --improved --oxy prn --mouth care measures. Reflux 03/23/2013 12/26/2015 Overview: --improved with protonix Elevated LFTs 03/22/2013 12/26/2015 Overview: --increased AST ALT during chemo, resolved. Excess fluid volume 03/21/2013 12/26/2015 Overview: --diuresis as needed --continue to monitor volume status CINV (chemotherapy-induced nausea and vomiting) 03/17/2013 10/13/2015 Overview: --Resolved --Ativan PRN (none used) Peripheral neuropathy 03/16/2013 12/26/2015 Overview: --gabapentin 300mg TID with increased symptoms, bedtime dose of gabapentin increased to 600mg with improvement reported, continue DVT prophylaxis 03/16/2013 12/26/2015 Overview: --platelet count decreasing, d/c heparin SQ --encourage ambulation Insomnia 03/16/2013 12/26/2015 Overview: --ambien PRN at HS, with relief, but with vivid dreams, ambien d/c --restoril at 30mg PRN at HS with relief, continue Chronic chest pain 03/16/2013 12/26/2015 Overview: --now resolved --since Hodgkin lymphoma diagnosis per patient Hospital discharge follow-up 03/16/201308/2015 Overview: --Patient will need to follow up with Dr. Unger after discharge Tachycardia 03/16/2013 12/26/2015 Overview: --patient taking atenolol 100mg BID at home, now BP running lower, decreased atenolol dose to 50mg BID with hypotension. --increase to 75mg BID, d/t tachycardia(HRs >110 while afebrile), HR now controlled, continue --monitor closely Electrolyte and fluid disorders not elsewhere cl assified 02/16/2013 12/26/2015 DISPOSITION AND FOLLOW-UP 10/27/20122015 Overview: 32 yo female from [place], [place]. Family involved with care, at bedside. plan to discharge patient home - will arrange with case management for post op care as needed - follow up in OPD in 7-10 days Post-op pain 10/27/2012 12/26/2015 Overview: currently well controlled with [employer] REPRESENTATIVE. will start PO pain meds today 10/27. tolerating percocet, pain relatively well controlled. Hodgkin's disease with nodular sclerosis 013 12/26/2015 Overview: Oncology history (per Dr. 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 Hodgkin's disease, unspecified 02/05/2012 0 05/11/2014 Vaginal bleeding 12/26/2015 Overview: --likely from thrombocytopenia. No menses in prior 8 months. Scant amount reported on 03/29 and 03/30, now resolved --monitor bleeding by counting pads --should f/u with her [employer] provider after BMT Premature menopause 12/26/2015 Postmenopausal atrophic vaginitis 12/26/2015 Dyspareunia 12/26/2015 documented as of this encounter (statuses as of 04/01/2022) [facility] History of Past illness Narrative* Problem Noted Date Resolved Date Menorrhagia with regular cycle 03/15/2017 1 03/03/2017 Overview: Added automatically from request for surgery [id number] History of pulmonary embolism 04/25/2016 Neoplastic (malignant) related fatigue 7 01/01/2018 Hidradenitis suppurativa 01/17/2016 018 Vitamin D deficiency 06/09/2015 12/26/2015 HyperCKemia 05/06/2015 12/26/2015 Elevated aldolase level 05/06/2015 12/26/19 16 Chronic pain of both knees 05/06/201512/25 Pain in joint, multiple sites 05/06/2015 Myalgia 05/06/2015 12/26/2015 Fatigue 05/06/2015 12/26/2015 Malaise and fatigue 03/24/2015 12/26/2015 Gastroesophageal reflux disease without esophagi tis 02/23/2015 12/26/2015 Laryngitis 02/23/2015 12/26/2015 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 10/28/2014 12/26/2015 Papanicolaou smear of cervix with low grade squamous intraepithelial lesion (LGSIL) 10/24/2014 12/25/2019 Pain in joint, ankle and foot 09/27/2014 ASCUS favor dysplasia 09/18/2014 12/26/2015 Visit for gynecologic examination 09/07/2014 12/26/2015 Postmenopausal HRT (hormone replacement therapy) 08/18/2014 12/26/2015 Overview: offered Gait abnormality 07/22/2014 12/26/2015 Weakness of both legs 07/22/2014 12/26/2015 Sprain of ankle, left 06/29/2014 12/26/2015 PCP (pneumocystis jiroveci pneumonia) 06/03/2014 12/26/2015 Acute respiratory failure with hypoxemia 015 12/26/2015 Overview: Increased O2 requirement overnight (2L to 5L) - bronchoscopy with BAL/TBLB tomorrow 8 AM. - NPO from midnight - hold tonight dose of lovenox. Radiation pneumonitis 05/11/2014 12/26/2015 Overview: 40 mg prednisone daily Immunodeficiency with predominant T-cell defect, unspecified 03/11/2014 12/26/2015 Urgency of micturation 03/04/2014 6 Urinary frequency 03/04/2014 12/26/2015 Arm pain, left 07/06/2013 12/26/2015 Back pain without radiation 07/06/201308/2015 Abnormal finding on imaging 07/06/201308/2015 Elevated sed rate 07/06/2013 12/26/2015 Hyperpigmentation of skin 03/31/20132015 Overview: --resolved --bilateral breast tissue and axilla --order mycolog cream --monitor Diarrhea 03/31/2013 12/26/2015 Overview: - c diff pending Mucositis (ulcerative) due to antineoplastic the rapy 03/24/2013 12/26/2015 Overview: --improved --oxy prn --mouth care measures. Reflux 03/23/2013 12/26/2015 Overview: --improved with protonix Elevated LFTs 03/22/2013 12/26/2015 Overview: --increased AST ALT during chemo, resolved. Excess fluid volume 03/21/2013 12/26/2015 Overview: --diuresis as needed --continue to monitor volume status CINV (chemotherapy-induced nausea and vomiting) 03/17/2013 10/13/2015 Overview: --Resolved --Ativan PRN (none used) Peripheral neuropathy 03/16/2013 12/26/2015 Overview: --gabapentin 300mg TID with increased symptoms, bedtime dose of gabapentin increased to 600mg with improvement reported, continue DVT prophylaxis 03/16/2013 12/26/2015 Overview: --platelet count decreasing, d/c heparin SQ --encourage ambulation Insomnia 03/16/2013 12/26/2015 Overview: --ambien PRN at HS, with relief, but with vivid dreams, bright d/c --restoril at 30mg PRN at HS with relief, continue Chronic chest pain 03/16/2013 12/26/2015 Overview: --now resolved --since Hodgkin lymphoma diagnosis per patient Hospital discharge follow-up 03/16/201308/2015 Overview: --Patient will need to follow up with Dr. Unger after discharge Tachycardia 03/16/2013 12/26/2015 Overview: --patient taking atenolol 100mg BID at home, now BP running lower, decreased atenolol dose to 50mg BID with hypotension. --increase to 75mg BID, d/t tachycardia(HRs >110 while afebrile), HR now controlled, continue --monitor closely Electrolyte and fluid disorders not elsewhere cl assified 02/16/2013 12/26/2015 DISPOSITION AND FOLLOW-UP 10/27/20122015 Overview: 32 yo female from [place], [place]. Family involved with care, at bedside. plan to discharge patient home - will arrange with case management for post op care as needed - follow up in OPD in 7-10 days Post-op pain 10/27/2012 12/26/2015 Overview: currently well controlled with [employer] SAL[employer] REPRESENT[employer]IVE. will start PO pain meds today 10/27. tolerating percocet, pain relatively well controlled. Hodgkin's disease with nodular sclerosis 013 12/26/2015 Overview: Oncology history (per Dr. 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 Hodgkin's disease, unspecified 02/05/2012 0 05/11/2014 Vaginal bleeding 12/26/2015 Overview: --likely from thrombocytopenia. No menses in prior 8 months. Scant amount reported on 03/29 and 03/30, now resolved --monitor bleeding by counting pads --should f/u with her [employer] provider after BMT Premature menopause 12/26/2015 Postmenopausal atrophic vaginitis 12/26/2015 Dyspareunia 12/26/2015 documented as of this encounter (statuses as of 04/10/2022) [facility]01-[facility] History of Past illness Narrative* Problem Noted Date Resolved Date Menorrhagia with regular cycle 03/15/2017 1 03/03/2017 Overview: Added automatically from request for surgery [id number] History of pulmonary embolism 04/25/2016 Neoplastic (malignant) related fatigue 7 01/01/2018 Hidradenitis suppurativa 01/17/2016 018 Vitamin D deficiency 06/09/2015 12/26/2015 HyperCKemia 05/06/2015 12/26/2015 Elevated aldolase level 05/06/2015 12/26/19 16 Chronic pain of both knees 05/06/201512/25 Pain in joint, multiple sites 05/06/2015 Myalgia 05/06/2015 12/26/2015 Fatigue 05/06/2015 12/26/2015 Malaise and fatigue 03/24/2015 12/26/2015 Gastroesophageal reflux disease without esophagi tis 02/23/2015 12/26/2015 Laryngitis 02/23/2015 12/26/2015 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 10/28/2014 12/26/2015 Papanicolaou smear of cervix with low grade squamous intraepithelial lesion (LGSIL) 10/24/2014 12/25/2019 Pain in joint, ankle and foot 09/27/2014 ASCUS favor dysplasia 09/18/2014 12/26/2015 Visit for gynecologic examination 09/07/2014 12/26/2015 Postmenopausal HRT (hormone replacement therapy) 08/18/2014 12/26/2015 Overview: offered Gait abnormality 07/22/2014 12/26/2015 Weakness of both legs 07/22/2014 12/26/2015 Sprain of ankle, left 06/29/2014 12/26/2015 PCP (pneumocystis jiroveci pneumonia) 06/03/2014 12/26/2015 Acute respiratory failure with hypoxemia 015 12/26/2015 Overview: Increased O2 requirement overnight (2L to 5L) - bronchoscopy with BAL/TBLB tomorrow 8 AM. - NPO from midnight - hold tonight dose of lovenox. Radiation pneumonitis 05/11/2014 12/26/2015 Overview: 40 mg prednisone daily Immunodeficiency with predominant T-cell defect, unspecified 03/11/2014 12/26/2015 Urgency of micturation 03/04/2014 6 Urinary frequency 03/04/2014 12/26/2015 Arm pain, left 07/06/2013 12/26/2015 Back pain without radiation 07/06/201308/2015 Abnormal finding on imaging 07/06/201308/2015 Elevated sed rate 07/06/2013 12/26/2015 Hyperpigmentation of skin 03/31/20132015 Overview: --resolved --bilateral breast tissue and axilla --order mycolog cream --monitor Diarrhea 03/31/2013 12/26/2015 Overview: - c diff pending Mucositis (ulcerative) due to antineoplastic the rapy 03/24/2013 12/26/2015 Overview: --improved --oxy prn --mouth care measures. Reflux 03/23/2013 12/26/2015 Overview: --improved with protonix Elevated LFTs 03/22/2013 12/26/2015 Overview: --increased AST ALT during chemo, resolved. Excess fluid volume 03/21/2013 12/26/2015 Overview: --diuresis as needed --continue to monitor volume status CINV (chemotherapy-induced nausea and vomiting) 03/17/2013 10/13/2015 Overview: --Resolved --Ativan PRN (none used) Peripheral neuropathy 03/16/2013 12/26/2015 Overview: --gabapentin 300mg TID with increased symptoms, bedtime dose of gabapentin increased to 600mg with improvement reported, continue DVT prophylaxis 03/16/2013 12/26/2015 Overview: --platelet count decreasing, d/c heparin SQ --encourage ambulation Insomnia 03/16/2013 12/26/2015 Overview: --ambien PRN at HS, with relief, but with vivid dreams, ambien d/c --restoril at 30mg PRN at HS with relief, continue Chronic chest pain 03/16/2013 12/26/2015 Overview: --now resolved --since Hodgkin lymphoma diagnosis per patient Hospital discharge follow-up 03/16/201308/2015 Overview: --Patient will need to follow up with Dr. Unger after discharge Tachycardia 03/16/2013 12/26/2015 Overview: --patient taking atenolol 100mg BID at home, now BP running lower, decreased atenolol dose to 50mg BID with hypotension. --increase to 75mg BID, d/t tachycardia(HRs >110 while afebrile), HR now controlled, continue --monitor closely Electrolyte and fluid disorders not elsewhere cl assified 02/16/2013 12/26/2015 DISPOSITION AND FOLLOW-UP 10/27/20122015 Overview: 32 yo female from [place], [place]. Family involved with care, at bedside. plan to discharge patient home - will arrange with case management for post op care as needed - follow up in OPD in 7-10 days Post-op pain 10/27/2012 12/26/2015 Overview: currently well controlled with [employer] REPRESENT[employer]IVE. will start PO pain meds today 10/27. tolerating percocet, pain relatively well controlled. Hodgkin's disease with nodular sclerosis 013 12/26/2015 Overview: Oncology history (per Dr. 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 Hodgkin's disease, unspecified 02/05/2012 0 05/11/2014 Vaginal bleeding 12/26/2015 Overview: --likely from thrombocytopenia. No menses in prior 8 months. Scant amount reported on 03/29 and 03/30, now resolved --monitor bleeding by counting pads --should f/u with her [employer] provider after BMT Premature menopause 12/26/2015 Postmenopausal atrophic vaginitis 12/26/2015 Dyspareunia 12/26/2015 documented as of this encounter (statuses as of 04/16/2022) [facility] History of Past illness Narrative* Problem Noted Date Resolved Date Menorrhagia with regular cycle 03/15/2017 1 03/03/2017 Overview: Added automatically from request for surgery [id number] History of pulmonary embolism 04/25/2016 Neoplastic (malignant) related fatigue 7 01/01/2018 Hidradenitis suppurativa 01/17/2016 018 Vitamin D deficiency 06/09/2015 12/26/2015 HyperCKemia 05/06/2015 12/26/2015 Elevated aldolase level 05/06/2015 12/26/19 16 Chronic pain of both knees 05/06/201512/25 Pain in joint, multiple sites 05/06/2015 Myalgia 05/06/2015 12/26/2015 Fatigue 05/06/2015 12/26/2015 Malaise and fatigue 03/24/2015 12/26/2015 Gastroesophageal reflux disease without esophagi tis 02/23/2015 12/26/2015 Laryngitis 02/23/2015 12/26/2015 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 10/28/2014 12/26/2015 Papanicolaou smear of cervix with low grade squamous intraepithelial lesion (LGSIL) 10/24/2014 12/25/2019 Pain in joint, ankle and foot 09/27/2014 ASCUS favor dysplasia 09/18/2014 12/26/2015 Visit for gynecologic examination 09/07/2014 12/26/2015 Postmenopausal HRT (hormone replacement therapy) 08/18/2014 12/26/2015 Overview: offered Gait abnormality 07/22/2014 12/26/2015 Weakness of both legs 07/22/2014 12/26/2015 Sprain of ankle, left 06/29/2014 12/26/2015 PCP (pneumocystis jiroveci pneumonia) 06/03/2014 12/26/2015 Acute respiratory failure with hypoxemia 015 12/26/2015 Overview: Increased O2 requirement overnight (2L to 5L) - bronchoscopy with BAL/TBLB tomorrow 8 AM. - NPO from midnight - hold tonight dose of lovenox. Radiation pneumonitis 05/11/2014 12/26/2015 Overview: 40 mg prednisone daily Immunodeficiency with predominant T-cell defect, unspecified 03/11/2014 12/26/2015 Urgency of micturation 03/04/2014 6 Urinary frequency 03/04/2014 12/26/2015 Arm pain, left 07/06/2013 12/26/2015 Back pain without radiation 07/06/201308/2015 Abnormal finding on imaging 07/06/201308/2015 Elevated sed rate 07/06/2013 12/26/2015 Hyperpigmentation of skin 03/31/20132015 Overview: --resolved --bilateral breast tissue and axilla --order mycolog cream --monitor Diarrhea 03/31/2013 12/26/2015 Overview: - c diff pending Mucositis (ulcerative) due to antineoplastic the rapy 03/24/2013 12/26/2015 Overview: --improved --oxy prn --mouth care measures. Reflux 03/23/2013 12/26/2015 Overview: --improved with protonix Elevated LFTs 03/22/2013 12/26/2015 Overview: --increased AST ALT during chemo, resolved. Excess fluid volume 03/21/2013 12/26/2015 Overview: --diuresis as needed --continue to monitor volume status CINV (chemotherapy-induced nausea and vomiting) 03/17/2013 10/13/2015 Overview: --Resolved --Ativan PRN (none used) Peripheral neuropathy 03/16/2013 12/26/2015 Overview: --gabapentin 300mg TID with increased symptoms, bedtime dose of gabapentin increased to 600mg with improvement reported, continue DVT prophylaxis 03/16/2013 12/26/2015 Overview: --platelet count decreasing, d/c heparin SQ --encourage ambulation Insomnia 03/16/2013 12/26/2015 Overview: --ambien PRN at HS, with relief, but with vivid dreams, ambien d/c --restoril at 30mg PRN at HS with relief, continue Chronic chest pain 03/16/2013 12/26/2015 Overview: --now resolved --since Hodgkin lymphoma diagnosis per patient Hospital discharge follow-up 03/16/201308/2015 Overview: --Patient will need to follow up with Dr. Unger after discharge Tachycardia 03/16/2013 12/26/2015 Overview: --patient taking atenolol 100mg BID at home, now BP running lower, decreased atenolol dose to 50mg BID with hypotension. --increase to 75mg BID, d/t tachycardia(HRs >110 while afebrile), HR now controlled, continue --monitor closely Electrolyte and fluid disorders not elsewhere cl assified 02/16/2013 12/26/2015 DISPOSITION AND FOLLOW-UP 10/27/20122015 Overview: 32 yo female from [place], [place]. Family involved with care, at bedside. plan to discharge patient home - will arrange with case management for post op care as needed - follow up in OPD in 7-10 days Post-op pain 10/27/2012 12/26/2015 Overview: currently well controlled with [employer] REPRESENT[employer]IVE. will start PO pain meds today 10/27. tolerating percocet, pain relatively well controlled. Hodgkin's disease with nodular sclerosis 013 12/26/2015 Overview: Oncology history (per Dr. 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 Hodgkin's disease, unspecified 02/05/2012 0 05/11/2014 Vaginal bleeding 12/26/2015 Overview: --likely from thrombocytopenia. No menses in prior 8 months. Scant amount reported on 03/29 and 03/30, now resolved --monitor bleeding by counting pads --should f/u with her [employer] provider after BMT Premature menopause 12/26/2015 Postmenopausal atrophic vaginitis 12/26/2015 Dyspareunia 12/26/2015 documented as of this encounter (statuses as of 04/17/2022) [facility] History of Past illness Narrative* Problem Noted Date Resolved Date Menorrhagia with regular cycle 03/15/2017 1 03/03/2017 Overview: Added automatically from request for surgery [id number] History of pulmonary embolism 04/25/2016 Neoplastic (malignant) related fatigue 7 01/01/2018 Hidradenitis suppurativa 01/17/2016 018 Vitamin D deficiency 06/09/2015 12/26/2015 HyperCKemia 05/06/2015 12/26/2015 Elevated aldolase level 05/06/2015 12/26/19 16 Chronic pain of both knees 05/06/201512/25 Pain in joint, multiple sites 05/06/2015 Myalgia 05/06/2015 12/26/2015 Fatigue 05/06/2015 12/26/2015 Malaise and fatigue 03/24/2015 12/26/2015 Gastroesophageal reflux disease without esophagi tis 02/23/2015 12/26/2015 Laryngitis 02/23/2015 12/26/2015 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 10/28/2014 12/26/2015 Papanicolaou smear of cervix with low grade squamous intraepithelial lesion (LGSIL) 10/24/2014 12/25/2019 Pain in joint, ankle and foot 09/27/2014 ASCUS favor dysplasia 09/18/2014 12/26/2015 Visit for gynecologic examination 09/07/2014 12/26/2015 Postmenopausal HRT (hormone replacement therapy) 08/18/2014 12/26/2015 Overview: offered Gait abnormality 07/22/2014 12/26/2015 Weakness of both legs 07/22/2014 12/26/2015 Sprain of ankle, left 06/29/2014 12/26/2015 PCP (pneumocystis jiroveci pneumonia) 06/03/2014 12/26/2015 Acute respiratory failure with hypoxemia 015 12/26/2015 Overview: Increased O2 requirement overnight (2L to 5L) - bronchoscopy with BAL/TBLB tomorrow 8 AM. - NPO from midnight - hold tonight dose of lovenox. Radiation pneumonitis 05/11/2014 12/26/2015 Overview: 40 mg prednisone daily Immunodeficiency with predominant T-cell defect, unspecified 03/11/2014 12/26/2015 Urgency of micturation 03/04/2014 6 Urinary frequency 03/04/2014 12/26/2015 Arm pain, left 07/06/2013 12/26/2015 Back pain without radiation 07/06/201308/2015 Abnormal finding on imaging 07/06/201308/2015 Elevated sed rate 07/06/2013 12/26/2015 Hyperpigmentation of skin 03/31/20132015 Overview: --resolved --bilateral breast tissue and axilla --order mycolog cream --monitor Diarrhea 03/31/2013 12/26/2015 Overview: - c diff pending Mucositis (ulcerative) due to antineoplastic the rapy 03/24/2013 12/26/2015 Overview: --improved --oxy prn --mouth care measures. Reflux 03/23/2013 12/26/2015 Overview: --improved with protonix Elevated LFTs 03/22/2013 12/26/2015 Overview: --increased AST ALT during chemo, resolved. Excess fluid volume 03/21/2013 12/26/2015 Overview: --diuresis as needed --continue to monitor volume status CINV (chemotherapy-induced nausea and vomiting) 03/17/2013 10/13/2015 Overview: --Resolved --Ativan PRN (none used) Peripheral neuropathy 03/16/2013 12/26/2015 Overview: --gabapentin 300mg TID with increased symptoms, bedtime dose of gabapentin increased to 600mg with improvement reported, continue DVT prophylaxis 03/16/2013 12/26/2015 Overview: --platelet count decreasing, d/c heparin SQ --encourage ambulation Insomnia 03/16/2013 12/26/2015 Overview: --ambien PRN at HS, with relief, but with vivid dreams, jeffien d/c --restoril at 30mg PRN at HS with relief, continue Chronic chest pain 03/16/2013 12/26/2015 Overview: --now resolved --since Hodgkin lymphoma diagnosis per patient Hospital discharge follow-up 03/16/201308/2015 Overview: --Patient will need to follow up with Dr. Unger after discharge Tachycardia 03/16/2013 12/26/2015 Overview: --patient taking atenolol 100mg BID at home, now BP running lower, decreased atenolol dose to 50mg BID with hypotension. --increase to 75mg BID, d/t tachycardia(HRs >110 while afebrile), HR now controlled, continue --monitor closely Electrolyte and fluid disorders not elsewhere cl assified 02/16/2013 12/26/2015 DISPOSITION AND FOLLOW-UP 10/27/20122015 Overview: 32 yo female from [place], [place]. Family involved with care, at bedside. plan to discharge patient home - will arrange with case management for post op care as needed - follow up in OPD in 7-10 days Post-op pain 10/27/2012 12/26/2015 Overview: currently well controlled with [employer] REPRESENTATIVE. will start PO pain meds today 10/27. tolerating percocet, pain relatively well controlled. Hodgkin's disease with nodular sclerosis 013 12/26/2015 Overview: Oncology history (per Dr. 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 Hodgkin's disease, unspecified 02/05/2012 0 05/11/2014 Vaginal bleeding 12/26/2015 Overview: --likely from thrombocytopenia. No menses in prior 8 months. Scant amount reported on 03/29 and 03/30, now resolved --monitor bleeding by counting pads --should f/u with her [employer] provider after BMT Premature menopause 12/26/2015 Postmenopausal atrophic vaginitis 12/26/2015 Dyspareunia 12/26/2015 documented as of this encounter (statuses as of 04/20/2022) [facility] History of Past illness Narrative* Problem Noted Date Resolved Date Menorrhagia with regular cycle 03/15/2017 1 03/03/2017 Overview: Added automatically from request for surgery [id number] History of pulmonary embolism 04/25/2016 Neoplastic (malignant) related fatigue 7 01/01/2018 Hidradenitis suppurativa 01/17/2016 018 Vitamin D deficiency 06/09/2015 12/26/2015 HyperCKemia 05/06/2015 12/26/2015 Elevated aldolase level 05/06/2015 12/26/19 16 Chronic pain of both knees 05/06/201512/25 Pain in joint, multiple sites 05/06/2015 Myalgia 05/06/2015 12/26/2015 Fatigue 05/06/2015 12/26/2015 Malaise and fatigue 03/24/2015 12/26/2015 Gastroesophageal reflux disease without esophagi tis 02/23/2015 12/26/2015 Laryngitis 02/23/2015 12/26/2015 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 10/28/2014 12/26/2015 Papanicolaou smear of cervix with low grade squamous intraepithelial lesion (LGSIL) 10/24/2014 12/25/2019 Pain in joint, ankle and foot 09/27/2014 ASCUS favor dysplasia 09/18/2014 12/26/2015 Visit for gynecologic examination 09/07/2014 12/26/2015 Postmenopausal HRT (hormone replacement therapy) 08/18/2014 12/26/2015 Overview: offered Gait abnormality 07/22/2014 12/26/2015 Weakness of both legs 07/22/2014 12/26/2015 Sprain of ankle, left 06/29/2014 12/26/2015 PCP (pneumocystis jiroveci pneumonia) 06/03/2014 12/26/2015 Acute respiratory failure with hypoxemia 015 12/26/2015 Overview: Increased O2 requirement overnight (2L to 5L) - bronchoscopy with BAL/TBLB tomorrow 8 AM. - NPO from midnight - hold tonight dose of lovenox. Radiation pneumonitis 05/11/2014 12/26/2015 Overview: 40 mg prednisone daily Immunodeficiency with predominant T-cell defect, unspecified 03/11/2014 12/26/2015 Urgency of micturation 03/04/2014 6 Urinary frequency 03/04/2014 12/26/2015 Arm pain, left 07/06/2013 12/26/2015 Back pain without radiation 07/06/201308/2015 Abnormal finding on imaging 07/06/201308/2015 Elevated sed rate 07/06/2013 12/26/2015 Hyperpigmentation of skin 03/31/20132015 Overview: --resolved --bilateral breast tissue and axilla --order mycolog cream --monitor Diarrhea 03/31/2013 12/26/2015 Overview: - c diff pending Mucositis (ulcerative) due to antineoplastic the rapy 03/24/2013 12/26/2015 Overview: --improved --oxy prn --mouth care measures. Reflux 03/23/2013 12/26/2015 Overview: --improved with protonix Elevated LFTs 03/22/2013 12/26/2015 Overview: --increased AST ALT during chemo, resolved. Excess fluid volume 03/21/2013 12/26/2015 Overview: --diuresis as needed --continue to monitor volume status CINV (chemotherapy-induced nausea and vomiting) 03/17/2013 10/13/2015 Overview: --Resolved --Ativan PRN (none used) Peripheral neuropathy 03/16/2013 12/26/2015 Overview: --gabapentin 300mg TID with increased symptoms, bedtime dose of gabapentin increased to 600mg with improvement reported, continue DVT prophylaxis 03/16/2013 12/26/2015 Overview: --platelet count decreasing, d/c heparin SQ --encourage ambulation Insomnia 03/16/2013 12/26/2015 Overview: --ambien PRN at HS, with relief, but with vivid dreams, ambien d/c --restoril at 30mg PRN at HS with relief, continue Chronic chest pain 03/16/2013 12/26/2015 Overview: --now resolved --since Hodgkin lymphoma diagnosis per patient Hospital discharge follow-up 03/16/201308/2015 Overview: --Patient will need to follow up with Dr. Unger after discharge Tachycardia 03/16/2013 12/26/2015 Overview: --patient taking atenolol 100mg BID at home, now BP running lower, decreased atenolol dose to 50mg BID with hypotension. --increase to 75mg BID, d/t tachycardia(HRs >110 while afebrile), HR now controlled, continue --monitor closely Electrolyte and fluid disorders not elsewhere cl assified 02/16/2013 12/26/2015 DISPOSITION AND FOLLOW-UP 10/27/20122015 Overview: 32 yo female from [place], [place]. Family involved with care, at bedside. plan to discharge patient home - will arrange with case management for post op care as needed - follow up in OPD in 7-10 days Post-op pain 10/27/2012 12/26/2015 Overview: currently well controlled with [employer] REPRESENTATIVE. will start PO pain meds today 10/27. tolerating percocet, pain relatively well controlled. Hodgkin's disease with nodular sclerosis 013 12/26/2015 Overview: Oncology history (per Dr. 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 Hodgkin's disease, unspecified 02/05/2012 0 05/11/2014 Vaginal bleeding 12/26/2015 Overview: --likely from thrombocytopenia. No menses in prior 8 months. Scant amount reported on 03/29 and 03/30, now resolved --monitor bleeding by counting pads --should f/u with her [employer] provider after BMT Premature menopause 12/26/2015 Postmenopausal atrophic vaginitis 12/26/2015 Dyspareunia 12/26/2015 documented as of this encounter (statuses as of 04/23/2022) [facility] History of Past illness Narrative* Problem Noted Date Resolved Date Menorrhagia with regular cycle 03/15/2017 1 03/03/2017 Overview: Added automatically from request for surgery [id number] History of pulmonary embolism 04/25/2016 Neoplastic (malignant) related fatigue 7 01/01/2018 Hidradenitis suppurativa 01/17/2016 018 Vitamin D deficiency 06/09/2015 12/26/2015 HyperCKemia 05/06/2015 12/26/2015 Elevated aldolase level 05/06/2015 12/26/19 16 Chronic pain of both knees 05/06/201512/25 Pain in joint, multiple sites 05/06/2015 Myalgia 05/06/2015 12/26/2015 Fatigue 05/06/2015 12/26/2015 Malaise and fatigue 03/24/2015 12/26/2015 Gastroesophageal reflux disease without esophagi tis 02/23/2015 12/26/2015 Laryngitis 02/23/2015 12/26/2015 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 10/28/2014 12/26/2015 Papanicolaou smear of cervix with low grade squamous intraepithelial lesion (LGSIL) 10/24/2014 12/25/2019 Pain in joint, ankle and foot 09/27/2014 ASCUS favor dysplasia 09/18/2014 12/26/2015 Visit for gynecologic examination 09/07/2014 12/26/2015 Postmenopausal HRT (hormone replacement therapy) 08/18/2014 12/26/2015 Overview: offered Gait abnormality 07/22/2014 12/26/2015 Weakness of both legs 07/22/2014 12/26/2015 Sprain of ankle, left 06/29/2014 12/26/2015 PCP (pneumocystis jiroveci pneumonia) 06/03/2014 12/26/2015 Acute respiratory failure with hypoxemia 015 12/26/2015 Overview: Increased O2 requirement overnight (2L to 5L) - bronchoscopy with BAL/TBLB tomorrow 8 AM. - NPO from midnight - hold tonight dose of lovenox. Radiation pneumonitis 05/11/2014 12/26/2015 Overview: 40 mg prednisone daily Immunodeficiency with predominant T-cell defect, unspecified 03/11/2014 12/26/2015 Urgency of micturation 03/04/2014 6 Urinary frequency 03/04/2014 12/26/2015 Arm pain, left 07/06/2013 12/26/2015 Back pain without radiation 07/06/201308/2015 Abnormal finding on imaging 07/06/201308/2015 Elevated sed rate 07/06/2013 12/26/2015 Hyperpigmentation of skin 03/31/20132015 Overview: --resolved --bilateral breast tissue and axilla --order mycolog cream --monitor Diarrhea 03/31/2013 12/26/2015 Overview: - c diff pending Mucositis (ulcerative) due to antineoplastic the rapy 03/24/2013 12/26/2015 Overview: --improved --oxy prn --mouth care measures. Reflux 03/23/2013 12/26/2015 Overview: --improved with protonix Elevated LFTs 03/22/2013 12/26/2015 Overview: --increased AST ALT during chemo, resolved. Excess fluid volume 03/21/2013 12/26/2015 Overview: --diuresis as needed --continue to monitor volume status CINV (chemotherapy-induced nausea and vomiting) 03/17/2013 10/13/2015 Overview: --Resolved --Ativan PRN (none used) Peripheral neuropathy 03/16/2013 12/26/2015 Overview: --gabapentin 300mg TID with increased symptoms, bedtime dose of gabapentin increased to 600mg with improvement reported, continue DVT prophylaxis 03/16/2013 12/26/2015 Overview: --platelet count decreasing, d/c heparin SQ --encourage ambulation Insomnia 03/16/2013 12/26/2015 Overview: --ambien PRN at HS, with relief, but with vivid dreams, ambien d/c --restoril at 30mg PRN at HS with relief, continue Chronic chest pain 03/16/2013 12/26/2015 Overview: --now resolved --since Hodgkin lymphoma diagnosis per patient Hospital discharge follow-up 03/16/201308/2015 Overview: --Patient will need to follow up with Dr. Unger after discharge Tachycardia 03/16/2013 12/26/2015 Overview: --patient taking atenolol 100mg BID at home, now BP running lower, decreased atenolol dose to 50mg BID with hypotension. --increase to 75mg BID, d/t tachycardia(HRs >110 while afebrile), HR now controlled, continue --monitor closely Electrolyte and fluid disorders not elsewhere cl assified 02/16/2013 12/26/2015 DISPOSITION AND FOLLOW-UP 10/27/20122015 Overview: 32 yo female from [place], [place]. Family involved with care, at bedside. plan to discharge patient home - will arrange with case management for post op care as needed - follow up in OPD in 7-10 days Post-op pain 10/27/2012 12/26/2015 Overview: currently well controlled with [employer] REPRESENTATIVE. will start PO pain meds today 10/27. tolerating percocet, pain relatively well controlled. Hodgkin's disease with nodular sclerosis 013 12/26/2015 Overview: Oncology history (per Dr. 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 Hodgkin's disease, unspecified 02/05/2012 0 05/11/2014 Vaginal bleeding 12/26/2015 Overview: --likely from thrombocytopenia. No menses in prior 8 months. Scant amount reported on 03/29 and 03/30, now resolved --monitor bleeding by counting pads --should f/u with her [employer] [employer] provider after BMT Premature menopause 12/26/2015 Postmenopausal atrophic vaginitis 12/26/2015 Dyspareunia 12/26/2015 documented as of this encounter (statuses as of 04/23/2022) [facility] History of Past illness Narrative* Problem Noted Date Resolved Date Menorrhagia with regular cycle 03/15/2017 1 03/03/2017 Overview: Added automatically from request for surgery [id number] History of pulmonary embolism 04/25/2016 Neoplastic (malignant) related fatigue 7 01/01/2018 Hidradenitis suppurativa 01/17/2016 018 Vitamin D deficiency 06/09/2015 12/26/2015 HyperCKemia 05/06/2015 12/26/2015 Elevated aldolase level 05/06/2015 12/26/19 16 Chronic pain of both knees 05/06/201512/25 Pain in joint, multiple sites 05/06/2015 Myalgia 05/06/2015 12/26/2015 Fatigue 05/06/2015 12/26/2015 Malaise and fatigue 03/24/2015 12/26/2015 Gastroesophageal reflux disease without esophagi tis 02/23/2015 12/26/2015 Laryngitis 02/23/2015 12/26/2015 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 10/28/2014 12/26/2015 Papanicolaou smear of cervix with low grade squamous intraepithelial lesion (LGSIL) 10/24/2014 12/25/2019 Pain in joint, ankle and foot 09/27/2014 ASCUS favor dysplasia 09/18/2014 12/26/2015 Visit for gynecologic examination 09/07/2014 12/26/2015 Postmenopausal HRT (hormone replacement therapy) 08/18/2014 12/26/2015 Overview: offered Gait abnormality 07/22/2014 12/26/2015 Weakness of both legs 07/22/2014 12/26/2015 Sprain of ankle, left 06/29/2014 12/26/2015 PCP (pneumocystis jiroveci pneumonia) 06/03/2014 12/26/2015 Acute respiratory failure with hypoxemia 015 12/26/2015 Overview: Increased O2 requirement overnight (2L to 5L) - bronchoscopy with BAL/TBLB tomorrow 8 AM. - NPO from midnight - hold tonight dose of lovenox. Radiation pneumonitis 05/11/2014 12/26/2015 Overview: 40 mg prednisone daily Immunodeficiency with predominant T-cell defect, unspecified 03/11/2014 12/26/2015 Urgency of micturation 03/04/2014 6 Urinary frequency 03/04/2014 12/26/2015 Arm pain, left 07/06/2013 12/26/2015 Back pain without radiation 07/06/201308/2015 Abnormal finding on imaging 07/06/201308/2015 Elevated sed rate 07/06/2013 12/26/2015 Hyperpigmentation of skin 03/31/20132015 Overview: --resolved --bilateral breast tissue and axilla --order mycolog cream --monitor Diarrhea 03/31/2013 12/26/2015 Overview: - c diff pending Mucositis (ulcerative) due to antineoplastic the rapy 03/24/2013 12/26/2015 Overview: --improved --oxy prn --mouth care measures. Reflux 03/23/2013 12/26/2015 Overview: --improved with protonix Elevated LFTs 03/22/2013 12/26/2015 Overview: --increased AST ALT during chemo, resolved. Excess fluid volume 03/21/2013 12/26/2015 Overview: --diuresis as needed --continue to monitor volume status CINV (chemotherapy-induced nausea and vomiting) 03/17/2013 10/13/2015 Overview: --Resolved --Ativan PRN (none used) Peripheral neuropathy 03/16/2013 12/26/2015 Overview: --gabapentin 300mg TID with increased symptoms, bedtime dose of gabapentin increased to 600mg with improvement reported, continue DVT prophylaxis 03/16/2013 12/26/2015 Overview: --platelet count decreasing, d/c heparin SQ --encourage ambulation Insomnia 03/16/2013 12/26/2015 Overview: --ambien PRN at HS, with relief, but with vivid dreams, ambien d/c --restoril at 30mg PRN at HS with relief, continue Chronic chest pain 03/16/2013 12/26/2015 Overview: --now resolved --since Hodgkin lymphoma diagnosis per patient Hospital discharge follow-up 03/16/201308/2015 Overview: --Patient will need to follow up with Dr. Unger after discharge Tachycardia 03/16/2013 12/26/2015 Overview: --patient taking atenolol 100mg BID at home, now BP running lower, decreased atenolol dose to 50mg BID with hypotension. --increase to 75mg BID, d/t tachycardia(HRs >110 while afebrile), HR now controlled, continue --monitor closely Electrolyte and fluid disorders not elsewhere cl assified 02/16/2013 12/26/2015 DISPOSITION AND FOLLOW-UP 10/27/20122015 Overview: 32 yo female from [place], [place]. Family involved with care, at bedside. plan to discharge patient home - will arrange with case management for post op care as needed - follow up in OPD in 7-10 days Post-op pain 10/27/2012 12/26/2015 Overview: currently well controlled with [employer] REPRESENTATIVE. will start PO pain meds today 10/27. tolerating percocet, pain relatively well controlled. Hodgkin's disease with nodular sclerosis 013 12/26/2015 Overview: Oncology history (per Dr. 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 Hodgkin's disease, unspecified 02/05/2012 0 05/11/2014 Vaginal bleeding 12/26/2015 Overview: --likely from thrombocytopenia. No menses in prior 8 months. Scant amount reported on 03/29 and 03/30, now resolved --monitor bleeding by counting pads --should f/u with her [employer] [employer] provider after BMT Premature menopause 12/26/2015 Postmenopausal atrophic vaginitis 12/26/2015 Dyspareunia 12/26/2015 documented as of this encounter (statuses as of 04/25/2022) [facility] History of Past illness Narrative* Problem Noted Date Resolved Date Menorrhagia with regular cycle 03/15/2017 1 03/03/2017 Overview: Added automatically from request for surgery [id number] History of pulmonary embolism 04/25/2016 Neoplastic (malignant) related fatigue 7 01/01/2018 Hidradenitis suppurativa 01/17/2016 018 Vitamin D deficiency 06/09/2015 12/26/2015 HyperCKemia 05/06/2015 12/26/2015 Elevated aldolase level 05/06/2015 12/26/19 16 Chronic pain of both knees 05/06/201512/25 Pain in joint, multiple sites 05/06/2015 Myalgia 05/06/2015 12/26/2015 Fatigue 05/06/2015 12/26/2015 Malaise and fatigue 03/24/2015 12/26/2015 Gastroesophageal reflux disease without esophagi tis 02/23/2015 12/26/2015 Laryngitis 02/23/2015 12/26/2015 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 10/28/2014 12/26/2015 Papanicolaou smear of cervix with low grade squamous intraepithelial lesion (LGSIL) 10/24/2014 12/25/2019 Pain in joint, ankle and foot 09/27/2014 ASCUS favor dysplasia 09/18/2014 12/26/2015 Visit for gynecologic examination 09/07/2014 12/26/2015 Postmenopausal HRT (hormone replacement therapy) 08/18/2014 12/26/2015 Overview: offered Gait abnormality 07/22/2014 12/26/2015 Weakness of both legs 07/22/2014 12/26/2015 Sprain of ankle, left 06/29/2014 12/26/2015 PCP (pneumocystis jiroveci pneumonia) 06/03/2014 12/26/2015 Acute respiratory failure with hypoxemia 015 12/26/2015 Overview: Increased O2 requirement overnight (2L to 5L) - bronchoscopy with BAL/TBLB tomorrow 8 AM. - NPO from midnight - hold tonight dose of lovenox. Radiation pneumonitis 05/11/2014 12/26/2015 Overview: 40 mg prednisone daily Immunodeficiency with predominant T-cell defect, unspecified 03/11/2014 12/26/2015 Urgency of micturation 03/04/2014 6 Urinary frequency 03/04/2014 12/26/2015 Arm pain, left 07/06/2013 12/26/2015 Back pain without radiation 07/06/201308/2015 Abnormal finding on imaging 07/06/201308/2015 Elevated sed rate 07/06/2013 12/26/2015 Hyperpigmentation of skin 03/31/20132015 Overview: --resolved --bilateral breast tissue and axilla --order mycolog cream --monitor Diarrhea 03/31/2013 12/26/2015 Overview: - c diff pending Mucositis (ulcerative) due to antineoplastic the rapy 03/24/2013 12/26/2015 Overview: --improved --oxy prn --mouth care measures. Reflux 03/23/2013 12/26/2015 Overview: --improved with protonix Elevated LFTs 03/22/2013 12/26/2015 Overview: --increased AST ALT during chemo, resolved. Excess fluid volume 03/21/2013 12/26/2015 Overview: --diuresis as needed --continue to monitor volume status CINV (chemotherapy-induced nausea and vomiting) 03/17/2013 10/13/2015 Overview: --Resolved --Ativan PRN (none used) Peripheral neuropathy 03/16/2013 12/26/2015 Overview: --gabapentin 300mg TID with increased symptoms, bedtime dose of gabapentin increased to 600mg with improvement reported, continue DVT prophylaxis 03/16/2013 12/26/2015 Overview: --platelet count decreasing, d/c heparin SQ --encourage ambulation Insomnia 03/16/2013 12/26/2015 Overview: --ambien PRN at HS, with relief, but with vivid dreams, ambien d/c --restoril at 30mg PRN at HS with relief, continue Chronic chest pain 03/16/2013 12/26/2015 Overview: --now resolved --since Hodgkin lymphoma diagnosis per patient Hospital discharge follow-up 03/16/201308/2015 Overview: --Patient will need to follow up with Dr. Unger after discharge Tachycardia 03/16/2013 12/26/2015 Overview: --patient taking atenolol 100mg BID at home, now BP running lower, decreased atenolol dose to 50mg BID with hypotension. --increase to 75mg BID, d/t tachycardia(HRs >110 while afebrile), HR now controlled, continue --monitor closely Electrolyte and fluid disorders not elsewhere cl assified 02/16/2013 12/26/2015 DISPOSITION AND FOLLOW-UP 10/27/20122015 Overview: 32 yo female from [place], [place]. Family involved with care, at bedside. plan to discharge patient home - will arrange with case management for post op care as needed - follow up in OPD in 7-10 days Post-op pain 10/27/2012 12/26/2015 Overview: currently well controlled with [employer] REPRESENTATIVE. will start PO pain meds today 10/27. tolerating percocet, pain relatively well controlled. Hodgkin's disease with nodular sclerosis 013 12/26/2015 Overview: Oncology history (per Dr. 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 Hodgkin's disease, unspecified 02/05/2012 0 05/11/2014 Vaginal bleeding 12/26/2015 Overview: --likely from thrombocytopenia. No menses in prior 8 months. Scant amount reported on 03/29 and 03/30, now resolved --monitor bleeding by counting pads --should f/u with her [employer] provider after BMT Premature menopause 12/26/2015 Postmenopausal atrophic vaginitis 12/26/2015 Dyspareunia 12/26/2015 documented as of this encounter (statuses as of 05/01/2022) [facility] History of Past illness Narrative* Problem Noted Date Resolved Date Menorrhagia with regular cycle 03/15/2017 1 03/03/2017 Overview: Added automatically from request for surgery [id number] History of pulmonary embolism 04/25/2016 Neoplastic (malignant) related fatigue 7 01/01/2018 Hidradenitis suppurativa 01/17/2016 018 Vitamin D deficiency 06/09/2015 12/26/2015 HyperCKemia 05/06/2015 12/26/2015 Elevated aldolase level 05/06/2015 12/26/19 16 Chronic pain of both knees 05/06/201512/25 Pain in joint, multiple sites 05/06/2015 Myalgia 05/06/2015 12/26/2015 Fatigue 05/06/2015 12/26/2015 Malaise and fatigue 03/24/2015 12/26/2015 Gastroesophageal reflux disease without esophagi tis 02/23/2015 12/26/2015 Laryngitis 02/23/2015 12/26/2015 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 10/28/2014 12/26/2015 Papanicolaou smear of cervix with low grade squamous intraepithelial lesion (LGSIL) 10/24/2014 12/25/2019 Pain in joint, ankle and foot 09/27/2014 ASCUS favor dysplasia 09/18/2014 12/26/2015 Visit for gynecologic examination 09/07/2014 12/26/2015 Postmenopausal HRT (hormone replacement therapy) 08/18/2014 12/26/2015 Overview: offered Gait abnormality 07/22/2014 12/26/2015 Weakness of both legs 07/22/2014 12/26/2015 Sprain of ankle, left 06/29/2014 12/26/2015 PCP (pneumocystis jiroveci pneumonia) 06/03/2014 12/26/2015 Acute respiratory failure with hypoxemia 015 12/26/2015 Overview: Increased O2 requirement overnight (2L to 5L) - bronchoscopy with BAL/TBLB tomorrow 8 AM. - NPO from midnight - hold tonight dose of lovenox. Radiation pneumonitis 05/11/2014 12/26/2015 Overview: 40 mg prednisone daily Immunodeficiency with predominant T-cell defect, unspecified 03/11/2014 12/26/2015 Urgency of micturation 03/04/2014 6 Urinary frequency 03/04/2014 12/26/2015 Arm pain, left 07/06/2013 12/26/2015 Back pain without radiation 07/06/201308/2015 Abnormal finding on imaging 07/06/201308/2015 Elevated sed rate 07/06/2013 12/26/2015 Hyperpigmentation of skin 03/31/20132015 Overview: --resolved --bilateral breast tissue and axilla --order mycolog cream --monitor Diarrhea 03/31/2013 12/26/2015 Overview: - c diff pending Mucositis (ulcerative) due to antineoplastic the rapy 03/24/2013 12/26/2015 Overview: --improved --oxy prn --mouth care measures. Reflux 03/23/2013 12/26/2015 Overview: --improved with protonix Elevated LFTs 03/22/2013 12/26/2015 Overview: --increased AST ALT during chemo, resolved. Excess fluid volume 03/21/2013 12/26/2015 Overview: --diuresis as needed --continue to monitor volume status CINV (chemotherapy-induced nausea and vomiting) 03/17/2013 10/13/2015 Overview: --Resolved --Ativan PRN (none used) Peripheral neuropathy 03/16/2013 12/26/2015 Overview: --gabapentin 300mg TID with increased symptoms, bedtime dose of gabapentin increased to 600mg with improvement reported, continue DVT prophylaxis 03/16/2013 12/26/2015 Overview: --platelet count decreasing, d/c heparin SQ --encourage ambulation Insomnia 03/16/2013 12/26/2015 Overview: --ambien PRN at HS, with relief, but with vivid dreams, ambien d/c --restoril at 30mg PRN at HS with relief, continue Chronic chest pain 03/16/2013 12/26/2015 Overview: --now resolved --since Hodgkin lymphoma diagnosis per patient Hospital discharge follow-up 03/16/201308/2015 Overview: --Patient will need to follow up with Dr. Unger after discharge Tachycardia 03/16/2013 12/26/2015 Overview: --patient taking atenolol 100mg BID at home, now BP running lower, decreased atenolol dose to 50mg BID with hypotension. --increase to 75mg BID, d/t tachycardia(HRs >110 while afebrile), HR now controlled, continue --monitor closely Electrolyte and fluid disorders not elsewhere cl assified 02/16/2013 12/26/2015 DISPOSITION AND FOLLOW-UP 10/27/20122015 Overview: 32 yo female from [place], [place]. Family involved with care, at bedside. plan to discharge patient home - will arrange with case management for post op care as needed - follow up in OPD in 7-10 days Post-op pain 10/27/2012 12/26/2015 Overview: currently well controlled with [employer] REPRESENTATIVE. will start PO pain meds today 10/27. tolerating percocet, pain relatively well controlled. Hodgkin's disease with nodular sclerosis 013 12/26/2015 Overview: Oncology history (per Dr. 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 Hodgkin's disease, unspecified 02/05/2012 0 05/11/2014 Vaginal bleeding 12/26/2015 Overview: --likely from thrombocytopenia. No menses in prior 8 months. Scant amount reported on 03/29 and 03/30, now resolved --monitor bleeding by counting pads --should f/u with her [employer] provider after BMT Premature menopause 12/26/2015 Postmenopausal atrophic vaginitis 12/26/2015 Dyspareunia 12/26/2015 documented as of this encounter (statuses as of 05/15/2022) [facility] History of Past illness Narrative* Problem Noted Date Resolved Date Menorrhagia with regular cycle 03/15/2017 1 03/03/2017 Overview: Added automatically from request for surgery [id number] History of pulmonary embolism 04/25/2016 Neoplastic (malignant) related fatigue 7 01/01/2018 Hidradenitis suppurativa 01/17/2016 018 Vitamin D deficiency 06/09/2015 12/26/2015 HyperCKemia 05/06/2015 12/26/2015 Elevated aldolase level 05/06/2015 12/26/19 16 Chronic pain of both knees 05/06/201512/25 Pain in joint, multiple sites 05/06/2015 Myalgia 05/06/2015 12/26/2015 Fatigue 05/06/2015 12/26/2015 Malaise and fatigue 03/24/2015 12/26/2015 Gastroesophageal reflux disease without esophagi tis 02/23/2015 12/26/2015 Laryngitis 02/23/2015 12/26/2015 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 10/28/2014 12/26/2015 Papanicolaou smear of cervix with low grade squamous intraepithelial lesion (LGSIL) 10/24/2014 12/25/2019 Pain in joint, ankle and foot 09/27/2014 ASCUS favor dysplasia 09/18/2014 12/26/2015 Visit for gynecologic examination 09/07/2014 12/26/2015 Postmenopausal HRT (hormone replacement therapy) 08/18/2014 12/26/2015 Overview: offered Gait abnormality 07/22/2014 12/26/2015 Weakness of both legs 07/22/2014 12/26/2015 Sprain of ankle, left 06/29/2014 12/26/2015 PCP (pneumocystis jiroveci pneumonia) 06/03/2014 12/26/2015 Acute respiratory failure with hypoxemia 015 12/26/2015 Overview: Increased O2 requirement overnight (2L to 5L) - bronchoscopy with BAL/TBLB tomorrow 8 AM. - NPO from midnight - hold tonight dose of lovenox. Radiation pneumonitis 05/11/2014 12/26/2015 Overview: 40 mg prednisone daily Immunodeficiency with predominant T-cell defect, unspecified 03/11/2014 12/26/2015 Urgency of micturation 03/04/2014 6 Urinary frequency 03/04/2014 12/26/2015 Arm pain, left 07/06/2013 12/26/2015 Back pain without radiation 07/06/201308/2015 Abnormal finding on imaging 07/06/201308/2015 Elevated sed rate 07/06/2013 12/26/2015 Hyperpigmentation of skin 03/31/20132015 Overview: --resolved --bilateral breast tissue and axilla --order mycolog cream --monitor Diarrhea 03/31/2013 12/26/2015 Overview: - c diff pending Mucositis (ulcerative) due to antineoplastic the rapy 03/24/2013 12/26/2015 Overview: --improved --oxy prn --mouth care measures. Reflux 03/23/2013 12/26/2015 Overview: --improved with protonix Elevated LFTs 03/22/2013 12/26/2015 Overview: --increased AST ALT during chemo, resolved. Excess fluid volume 03/21/2013 12/26/2015 Overview: --diuresis as needed --continue to monitor volume status CINV (chemotherapy-induced nausea and vomiting) 03/17/2013 10/13/2015 Overview: --Resolved --Ativan PRN (none used) Peripheral neuropathy 03/16/2013 12/26/2015 Overview: --gabapentin 300mg TID with increased symptoms, bedtime dose of gabapentin increased to 600mg with improvement reported, continue DVT prophylaxis 03/16/2013 12/26/2015 Overview: --platelet count decreasing, d/c heparin SQ --encourage ambulation Insomnia 03/16/2013 12/26/2015 Overview: --ambien PRN at HS, with relief, but with vivid dreams, jeffien d/c --restoril at 30mg PRN at HS with relief, continue Chronic chest pain 03/16/2013 12/26/2015 Overview: --now resolved --since Hodgkin lymphoma diagnosis per patient Hospital discharge follow-up 03/16/201308/2015 Overview: --Patient will need to follow up with Dr. Unger after discharge Tachycardia 03/16/2013 12/26/2015 Overview: --patient taking atenolol 100mg BID at home, now BP running lower, decreased atenolol dose to 50mg BID with hypotension. --increase to 75mg BID, d/t tachycardia(HRs >110 while afebrile), HR now controlled, continue --monitor closely Electrolyte and fluid disorders not elsewhere cl assified 02/16/2013 12/26/2015 DISPOSITION AND FOLLOW-UP 10/27/20122015 Overview: 32 yo female from [place], [place]. Family involved with care, at bedside. plan to discharge patient home - will arrange with case management for post op care as needed - follow up in OPD in 7-10 days Post-op pain 10/27/2012 12/26/2015 Overview: currently well controlled with [employer] REPRESENTATIVE. will start PO pain meds today 10/27. tolerating percocet, pain relatively well controlled. Hodgkin's disease with nodular sclerosis 013 12/26/2015 Overview: Oncology history (per Dr. 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 Hodgkin's disease, unspecified 02/05/2012 0 05/11/2014 Vaginal bleeding 12/26/2015 Overview: --likely from thrombocytopenia. No menses in prior 8 months. Scant amount reported on 03/29 and 03/30, now resolved --monitor bleeding by counting pads --should f/u with her [employer] provider after BMT Premature menopause 12/26/2015 Postmenopausal atrophic vaginitis 12/26/2015 Dyspareunia 12/26/2015 documented as of this encounter (statuses as of 05/21/2022) [facility] History of Past illness Narrative* Problem Noted Date Resolved Date Menorrhagia with regular cycle 03/15/2017 1 03/03/2017 Overview: Added automatically from request for surgery [id number] History of pulmonary embolism 04/25/2016 Neoplastic (malignant) related fatigue 7 01/01/2018 Hidradenitis suppurativa 01/17/2016 018 Vitamin D deficiency 06/09/2015 12/26/2015 HyperCKemia 05/06/2015 12/26/2015 Elevated aldolase level 05/06/2015 12/26/19 16 Chronic pain of both knees 05/06/201512/25 Pain in joint, multiple sites 05/06/2015 Myalgia 05/06/2015 12/26/2015 Fatigue 05/06/2015 12/26/2015 Malaise and fatigue 03/24/2015 12/26/2015 Gastroesophageal reflux disease without esophagi tis 02/23/2015 12/26/2015 Laryngitis 02/23/2015 12/26/2015 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 10/28/2014 12/26/2015 Papanicolaou smear of cervix with low grade squamous intraepithelial lesion (LGSIL) 10/24/2014 12/25/2019 Pain in joint, ankle and foot 09/27/2014 ASCUS favor dysplasia 09/18/2014 12/26/2015 Visit for gynecologic examination 09/07/2014 12/26/2015 Postmenopausal HRT (hormone replacement therapy) 08/18/2014 12/26/2015 Overview: offered Gait abnormality 07/22/2014 12/26/2015 Weakness of both legs 07/22/2014 12/26/2015 Sprain of ankle, left 06/29/2014 12/26/2015 PCP (pneumocystis jiroveci pneumonia) 06/03/2014 12/26/2015 Acute respiratory failure with hypoxemia 015 12/26/2015 Overview: Increased O2 requirement overnight (2L to 5L) - bronchoscopy with BAL/TBLB tomorrow 8 AM. - NPO from midnight - hold tonight dose of lovenox. Radiation pneumonitis 05/11/2014 12/26/2015 Overview: 40 mg prednisone daily Immunodeficiency with predominant T-cell defect, unspecified 03/11/2014 12/26/2015 Urgency of micturation 03/04/2014 6 Urinary frequency 03/04/2014 12/26/2015 Arm pain, left 07/06/2013 12/26/2015 Back pain without radiation 07/06/201308/2015 Abnormal finding on imaging 07/06/201308/2015 Elevated sed rate 07/06/2013 12/26/2015 Hyperpigmentation of skin 03/31/20132015 Overview: --resolved --bilateral breast tissue and axilla --order mycolog cream --monitor Diarrhea 03/31/2013 12/26/2015 Overview: - c diff pending Mucositis (ulcerative) due to antineoplastic the rapy 03/24/2013 12/26/2015 Overview: --improved --oxy prn --mouth care measures. Reflux 03/23/2013 12/26/2015 Overview: --improved with protonix Elevated LFTs 03/22/2013 12/26/2015 Overview: --increased AST ALT during chemo, resolved. Excess fluid volume 03/21/2013 12/26/2015 Overview: --diuresis as needed --continue to monitor volume status CINV (chemotherapy-induced nausea and vomiting) 03/17/2013 10/13/2015 Overview: --Resolved --Ativan PRN (none used) Peripheral neuropathy 03/16/2013 12/26/2015 Overview: --gabapentin 300mg TID with increased symptoms, bedtime dose of gabapentin increased to 600mg with improvement reported, continue DVT prophylaxis 03/16/2013 12/26/2015 Overview: --platelet count decreasing, d/c heparin SQ --encourage ambulation Insomnia 03/16/2013 12/26/2015 Overview: --ambien PRN at HS, with relief, but with vivid dreams, ambien d/c --restoril at 30mg PRN at HS with relief, continue Chronic chest pain 03/16/2013 12/26/2015 Overview: --now resolved --since Hodgkin lymphoma diagnosis per patient Hospital discharge follow-up 03/16/201308/2015 Overview: --Patient will need to follow up with Dr. Unger after discharge Tachycardia 03/16/2013 12/26/2015 Overview: --patient taking atenolol 100mg BID at home, now BP running lower, decreased atenolol dose to 50mg BID with hypotension. --increase to 75mg BID, d/t tachycardia(HRs >110 while afebrile), HR now controlled, continue --monitor closely Electrolyte and fluid disorders not elsewhere cl assified 02/16/2013 12/26/2015 DISPOSITION AND FOLLOW-UP 10/27/20122015 Overview: 32 yo female from [place], [place]. Family involved with care, at bedside. plan to discharge patient home - will arrange with case management for post op care as needed - follow up in OPD in 7-10 days Post-op pain 10/27/2012 12/26/2015 Overview: currently well controlled with [employer] REPRESENTATIVE. will start PO pain meds today 10/27. tolerating percocet, pain relatively well controlled. Hodgkin's disease with nodular sclerosis 013 12/26/2015 Overview: Oncology history (per Dr. 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 Hodgkin's disease, unspecified 02/05/2012 0 05/11/2014 Vaginal bleeding 12/26/2015 Overview: --likely from thrombocytopenia. No menses in prior 8 months. Scant amount reported on 03/29 and 03/30, now resolved --monitor bleeding by counting pads --should f/u with her [employer] provider after BMT Premature menopause 12/26/2015 Postmenopausal atrophic vaginitis 12/26/2015 Dyspareunia 12/26/2015 documented as of this encounter (statuses as of 05/21/2022) [facility]01-[facility] History of Past illness Narrative* Problem Noted Date Resolved Date Menorrhagia with regular cycle 03/15/2017 1 03/03/2017 Overview: Added automatically from request for surgery [id number] History of pulmonary embolism 04/25/2016 Neoplastic (malignant) related fatigue 7 01/01/2018 Hidradenitis suppurativa 01/17/2016 018 Vitamin D deficiency 06/09/2015 12/26/2015 HyperCKemia 05/06/2015 12/26/2015 Elevated aldolase level 05/06/2015 12/26/19 16 Chronic pain of both knees 05/06/201512/25 Pain in joint, multiple sites 05/06/2015 Myalgia 05/06/2015 12/26/2015 Fatigue 05/06/2015 12/26/2015 Malaise and fatigue 03/24/2015 12/26/2015 Gastroesophageal reflux disease without esophagi tis 02/23/2015 12/26/2015 Laryngitis 02/23/2015 12/26/2015 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 10/28/2014 12/26/2015 Papanicolaou smear of cervix with low grade squamous intraepithelial lesion (LGSIL) 10/24/2014 12/25/2019 Pain in joint, ankle and foot 09/27/2014 ASCUS favor dysplasia 09/18/2014 12/26/2015 Visit for gynecologic examination 09/07/2014 12/26/2015 Postmenopausal HRT (hormone replacement therapy) 08/18/2014 12/26/2015 Overview: offered Gait abnormality 07/22/2014 12/26/2015 Weakness of both legs 07/22/2014 12/26/2015 Sprain of ankle, left 06/29/2014 12/26/2015 PCP (pneumocystis jiroveci pneumonia) 06/03/2014 12/26/2015 Acute respiratory failure with hypoxemia 015 12/26/2015 Overview: Increased O2 requirement overnight (2L to 5L) - bronchoscopy with BAL/TBLB tomorrow 8 AM. - NPO from midnight - hold tonight dose of lovenox. Radiation pneumonitis 05/11/2014 12/26/2015 Overview: 40 mg prednisone daily Immunodeficiency with predominant T-cell defect, unspecified 03/11/2014 12/26/2015 Urgency of micturation 03/04/2014 6 Urinary frequency 03/04/2014 12/26/2015 Arm pain, left 07/06/2013 12/26/2015 Back pain without radiation 07/06/201308/2015 Abnormal finding on imaging 07/06/201308/2015 Elevated sed rate 07/06/2013 12/26/2015 Hyperpigmentation of skin 03/31/20132015 Overview: --resolved --bilateral breast tissue and axilla --order mycolog cream --monitor Diarrhea 03/31/2013 12/26/2015 Overview: - c diff pending Mucositis (ulcerative) due to antineoplastic the rapy 03/24/2013 12/26/2015 Overview: --improved --oxy prn --mouth care measures. Reflux 03/23/2013 12/26/2015 Overview: --improved with protonix Elevated LFTs 03/22/2013 12/26/2015 Overview: --increased AST ALT during chemo, resolved. Excess fluid volume 03/21/2013 12/26/2015 Overview: --diuresis as needed --continue to monitor volume status CINV (chemotherapy-induced nausea and vomiting) 03/17/2013 10/13/2015 Overview: --Resolved --Ativan PRN (none used) Peripheral neuropathy 03/16/2013 12/26/2015 Overview: --gabapentin 300mg TID with increased symptoms, bedtime dose of gabapentin increased to 600mg with improvement reported, continue DVT prophylaxis 03/16/2013 12/26/2015 Overview: --platelet count decreasing, d/c heparin SQ --encourage ambulation Insomnia 03/16/2013 12/26/2015 Overview: --ambien PRN at HS, with relief, but with vivid dreams, ambien d/c --restoril at 30mg PRN at HS with relief, continue Chronic chest pain 03/16/2013 12/26/2015 Overview: --now resolved --since Hodgkin lymphoma diagnosis per patient Hospital discharge follow-up 03/16/201308/2015 Overview: --Patient will need to follow up with Dr. Unger after discharge Tachycardia 03/16/2013 12/26/2015 Overview: --patient taking atenolol 100mg BID at home, now BP running lower, decreased atenolol dose to 50mg BID with hypotension. --increase to 75mg BID, d/t tachycardia(HRs >110 while afebrile), HR now controlled, continue --monitor closely Electrolyte and fluid disorders not elsewhere cl assified 02/16/2013 12/26/2015 DISPOSITION AND FOLLOW-UP 10/27/20122015 Overview: 32 yo female from [place], [place]. Family involved with care, at bedside. plan to discharge patient home - will arrange with case management for post op care as needed - follow up in OPD in 7-10 days Post-op pain 10/27/2012 12/26/2015 Overview: currently well controlled with [employer] REPRESENTATIVE. will start PO pain meds today 10/27. tolerating percocet, pain relatively well controlled. Hodgkin's disease with nodular sclerosis 013 12/26/2015 Overview: Oncology history (per Dr. 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 Hodgkin's disease, unspecified 02/05/2012 0 05/11/2014 Vaginal bleeding 12/26/2015 Overview: --likely from thrombocytopenia. No menses in prior 8 months. Scant amount reported on 03/29 and 03/30, now resolved --monitor bleeding by counting pads --should f/u with her [employer] provider after BMT Premature menopause 12/26/2015 Postmenopausal atrophic vaginitis 12/26/2015 Dyspareunia 12/26/2015 documented as of this encounter (statuses as of 06/11/2022) [facility] History of Past illness Narrative* Problem Noted Date Resolved Date Menorrhagia with regular cycle 03/15/2017 1 03/03/2017 Overview: Added automatically from request for surgery [id number] History of pulmonary embolism 04/25/2016 Neoplastic (malignant) related fatigue 7 01/01/2018 Hidradenitis suppurativa 01/17/2016 018 Vitamin D deficiency 06/09/2015 12/26/2015 HyperCKemia 05/06/2015 12/26/2015 Elevated aldolase level 05/06/2015 12/26/19 16 Chronic pain of both knees 05/06/201512/25 Pain in joint, multiple sites 05/06/2015 Myalgia 05/06/2015 12/26/2015 Fatigue 05/06/2015 12/26/2015 Malaise and fatigue 03/24/2015 12/26/2015 Gastroesophageal reflux disease without esophagi tis 02/23/2015 12/26/2015 Laryngitis 02/23/2015 12/26/2015 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 10/28/2014 12/26/2015 Papanicolaou smear of cervix with low grade squamous intraepithelial lesion (LGSIL) 10/24/2014 12/25/2019 Pain in joint, ankle and foot 09/27/2014 ASCUS favor dysplasia 09/18/2014 12/26/2015 Visit for gynecologic examination 09/07/2014 12/26/2015 Postmenopausal HRT (hormone replacement therapy) 08/18/2014 12/26/2015 Overview: offered Gait abnormality 07/22/2014 12/26/2015 Weakness of both legs 07/22/2014 12/26/2015 Sprain of ankle, left 06/29/2014 12/26/2015 PCP (pneumocystis jiroveci pneumonia) 06/03/2014 12/26/2015 Acute respiratory failure with hypoxemia 015 12/26/2015 Overview: Increased O2 requirement overnight (2L to 5L) - bronchoscopy with BAL/TBLB tomorrow 8 AM. - NPO from midnight - hold tonight dose of lovenox. Radiation pneumonitis 05/11/2014 12/26/2015 Overview: 40 mg prednisone daily Immunodeficiency with predominant T-cell defect, unspecified 03/11/2014 12/26/2015 Urgency of micturation 03/04/2014 6 Urinary frequency 03/04/2014 12/26/2015 Arm pain, left 07/06/2013 12/26/2015 Back pain without radiation 07/06/201308/2015 Abnormal finding on imaging 07/06/201308/2015 Elevated sed rate 07/06/2013 12/26/2015 Hyperpigmentation of skin 03/31/20132015 Overview: --resolved --bilateral breast tissue and axilla --order mycolog cream --monitor Diarrhea 03/31/2013 12/26/2015 Overview: - c diff pending Mucositis (ulcerative) due to antineoplastic the rapy 03/24/2013 12/26/2015 Overview: --improved --oxy prn --mouth care measures. Reflux 03/23/2013 12/26/2015 Overview: --improved with protonix Elevated LFTs 03/22/2013 12/26/2015 Overview: --increased AST ALT during chemo, resolved. Excess fluid volume 03/21/2013 12/26/2015 Overview: --diuresis as needed --continue to monitor volume status CINV (chemotherapy-induced nausea and vomiting) 03/17/2013 10/13/2015 Overview: --Resolved --Ativan PRN (none used) Peripheral neuropathy 03/16/2013 12/26/2015 Overview: --gabapentin 300mg TID with increased symptoms, bedtime dose of gabapentin increased to 600mg with improvement reported, continue DVT prophylaxis 03/16/2013 12/26/2015 Overview: --platelet count decreasing, d/c heparin SQ --encourage ambulation Insomnia 03/16/2013 12/26/2015 Overview: --ambien PRN at HS, with relief, but with vivid dreams, jeffien d/c --restoril at 30mg PRN at HS with relief, continue Chronic chest pain 03/16/2013 12/26/2015 Overview: --now resolved --since Hodgkin lymphoma diagnosis per patient Hospital discharge follow-up 03/16/201308/2015 Overview: --Patient will need to follow up with Dr. Unger after discharge Tachycardia 03/16/2013 12/26/2015 Overview: --patient taking atenolol 100mg BID at home, now BP running lower, decreased atenolol dose to 50mg BID with hypotension. --increase to 75mg BID, d/t tachycardia(HRs >110 while afebrile), HR now controlled, continue --monitor closely Electrolyte and fluid disorders not elsewhere cl assified 02/16/2013 12/26/2015 DISPOSITION AND FOLLOW-UP 10/27/20122015 Overview: 32 yo female from [place], [place]. Family involved with care, at bedside. plan to discharge patient home - will arrange with case management for post op care as needed - follow up in OPD in 7-10 days Post-op pain 10/27/2012 12/26/2015 Overview: currently well controlled with [employer] REPRESENTATIVE. will start PO pain meds today 10/27. tolerating percocet, pain relatively well controlled. Hodgkin's disease with nodular sclerosis 013 12/26/2015 Overview: Oncology history (per Dr. 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 Hodgkin's disease, unspecified 02/05/2012 0 05/11/2014 Vaginal bleeding 12/26/2015 Overview: --likely from thrombocytopenia. No menses in prior 8 months. Scant amount reported on 03/29 and 03/30, now resolved --monitor bleeding by counting pads --should f/u with her [employer] provider after BMT Premature menopause 12/26/2015 Postmenopausal atrophic vaginitis 12/26/2015 Dyspareunia 12/26/2015 documented as of this encounter (statuses as of 06/12/2022) [facility] History of Past illness Narrative* Problem Noted Date Resolved Date Menorrhagia with regular cycle 03/15/2017 1 03/03/2017 Overview: Added automatically from request for surgery [id number] History of pulmonary embolism 04/25/2016 Neoplastic (malignant) related fatigue 7 01/01/2018 Hidradenitis suppurativa 01/17/2016 018 Vitamin D deficiency 06/09/2015 12/26/2015 HyperCKemia 05/06/2015 12/26/2015 Elevated aldolase level 05/06/2015 12/26/19 16 Chronic pain of both knees 05/06/201512/25 Pain in joint, multiple sites 05/06/2015 Myalgia 05/06/2015 12/26/2015 Fatigue 05/06/2015 12/26/2015 Malaise and fatigue 03/24/2015 12/26/2015 Gastroesophageal reflux disease without esophagi tis 02/23/2015 12/26/2015 Laryngitis 02/23/2015 12/26/2015 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 10/28/2014 12/26/2015 Papanicolaou smear of cervix with low grade squamous intraepithelial lesion (LGSIL) 10/24/2014 12/25/2019 Pain in joint, ankle and foot 09/27/2014 ASCUS favor dysplasia 09/18/2014 12/26/2015 Visit for gynecologic examination 09/07/2014 12/26/2015 Postmenopausal HRT (hormone replacement therapy) 08/18/2014 12/26/2015 Overview: offered Gait abnormality 07/22/2014 12/26/2015 Weakness of both legs 07/22/2014 12/26/2015 Sprain of ankle, left 06/29/2014 12/26/2015 PCP (pneumocystis jiroveci pneumonia) 06/03/2014 12/26/2015 Acute respiratory failure with hypoxemia 015 12/26/2015 Overview: Increased O2 requirement overnight (2L to 5L) - bronchoscopy with BAL/TBLB tomorrow 8 AM. - NPO from midnight - hold tonight dose of lovenox. Radiation pneumonitis 05/11/2014 12/26/2015 Overview: 40 mg prednisone daily Immunodeficiency with predominant T-cell defect, unspecified 03/11/2014 12/26/2015 Urgency of micturation 03/04/2014 6 Urinary frequency 03/04/2014 12/26/2015 Arm pain, left 07/06/2013 12/26/2015 Back pain without radiation 07/06/201308/2015 Abnormal finding on imaging 07/06/201308/2015 Elevated sed rate 07/06/2013 12/26/2015 Hyperpigmentation of skin 03/31/20132015 Overview: --resolved --bilateral breast tissue and axilla --order mycolog cream --monitor Diarrhea 03/31/2013 12/26/2015 Overview: - c diff pending Mucositis (ulcerative) due to antineoplastic the rapy 03/24/2013 12/26/2015 Overview: --improved --oxy prn --mouth care measures. Reflux 03/23/2013 12/26/2015 Overview: --improved with protonix Elevated LFTs 03/22/2013 12/26/2015 Overview: --increased AST ALT during chemo, resolved. Excess fluid volume 03/21/2013 12/26/2015 Overview: --diuresis as needed --continue to monitor volume status CINV (chemotherapy-induced nausea and vomiting) 03/17/2013 10/13/2015 Overview: --Resolved --Ativan PRN (none used) Peripheral neuropathy 03/16/2013 12/26/2015 Overview: --gabapentin 300mg TID with increased symptoms, bedtime dose of gabapentin increased to 600mg with improvement reported, continue DVT prophylaxis 03/16/2013 12/26/2015 Overview: --platelet count decreasing, d/c heparin SQ --encourage ambulation Insomnia 03/16/2013 12/26/2015 Overview: --ambien PRN at HS, with relief, but with vivid dreams, ambien d/c --restoril at 30mg PRN at HS with relief, continue Chronic chest pain 03/16/2013 12/26/2015 Overview: --now resolved --since Hodgkin lymphoma diagnosis per patient Hospital discharge follow-up 03/16/201308/2015 Overview: --Patient will need to follow up with Dr. Unger after discharge Tachycardia 03/16/2013 12/26/2015 Overview: --patient taking atenolol 100mg BID at home, now BP running lower, decreased atenolol dose to 50mg BID with hypotension. --increase to 75mg BID, d/t tachycardia(HRs >110 while afebrile), HR now controlled, continue --monitor closely Electrolyte and fluid disorders not elsewhere cl assified 02/16/2013 12/26/2015 DISPOSITION AND FOLLOW-UP 10/27/20122015 Overview: 32 yo female from [place], [place]. Family involved with care, at bedside. plan to discharge patient home - will arrange with case management for post op care as needed - follow up in OPD in 7-10 days Post-op pain 10/27/2012 12/26/2015 Overview: currently well controlled with [employer] REPRESENTATIVE. will start PO pain meds today 10/27. tolerating percocet, pain relatively well controlled. Hodgkin's disease with nodular sclerosis 013 12/26/2015 Overview: Oncology history (per Dr. 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 Hodgkin's disease, unspecified 02/05/2012 0 05/11/2014 Vaginal bleeding 12/26/2015 Overview: --likely from thrombocytopenia. No menses in prior 8 months. Scant amount reported on 03/29 and 03/30, now resolved --monitor bleeding by counting pads --should f/u with her [employer] provider after BMT Premature menopause 12/26/2015 Postmenopausal atrophic vaginitis 12/26/2015 Dyspareunia 12/26/2015 documented as of this encounter (statuses as of 06/12/2022) [facility] History of Past illness Narrative* Problem Noted Date Resolved Date Menorrhagia with regular cycle 03/15/2017 1 03/03/2017 Overview: Added automatically from request for surgery [id number] History of pulmonary embolism 04/25/2016 Neoplastic (malignant) related fatigue 7 01/01/2018 Hidradenitis suppurativa 01/17/2016 018 Vitamin D deficiency 06/09/2015 12/26/2015 HyperCKemia 05/06/2015 12/26/2015 Elevated aldolase level 05/06/2015 12/26/19 16 Chronic pain of both knees 05/06/201512/25 Pain in joint, multiple sites 05/06/2015 Myalgia 05/06/2015 12/26/2015 Fatigue 05/06/2015 12/26/2015 Malaise and fatigue 03/24/2015 12/26/2015 Gastroesophageal reflux disease without esophagi tis 02/23/2015 12/26/2015 Laryngitis 02/23/2015 12/26/2015 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 10/28/2014 12/26/2015 Papanicolaou smear of cervix with low grade squamous intraepithelial lesion (LGSIL) 10/24/2014 12/25/2019 Pain in joint, ankle and foot 09/27/2014 ASCUS favor dysplasia 09/18/2014 12/26/2015 Visit for gynecologic examination 09/07/2014 12/26/2015 Postmenopausal HRT (hormone replacement therapy) 08/18/2014 12/26/2015 Overview: offered Gait abnormality 07/22/2014 12/26/2015 Weakness of both legs 07/22/2014 12/26/2015 Sprain of ankle, left 06/29/2014 12/26/2015 PCP (pneumocystis jiroveci pneumonia) 06/03/2014 12/26/2015 Acute respiratory failure with hypoxemia 015 12/26/2015 Overview: Increased O2 requirement overnight (2L to 5L) - bronchoscopy with BAL/TBLB tomorrow 8 AM. - NPO from midnight - hold tonight dose of lovenox. Radiation pneumonitis 05/11/2014 12/26/2015 Overview: 40 mg prednisone daily Immunodeficiency with predominant T-cell defect, unspecified 03/11/2014 12/26/2015 Urgency of micturation 03/04/2014 6 Urinary frequency 03/04/2014 12/26/2015 Arm pain, left 07/06/2013 12/26/2015 Back pain without radiation 07/06/201308/2015 Abnormal finding on imaging 07/06/201308/2015 Elevated sed rate 07/06/2013 12/26/2015 Hyperpigmentation of skin 03/31/20132015 Overview: --resolved --bilateral breast tissue and axilla --order mycolog cream --monitor Diarrhea 03/31/2013 12/26/2015 Overview: - c diff pending Mucositis (ulcerative) due to antineoplastic the rapy 03/24/2013 12/26/2015 Overview: --improved --oxy prn --mouth care measures. Reflux 03/23/2013 12/26/2015 Overview: --improved with protonix Elevated LFTs 03/22/2013 12/26/2015 Overview: --increased AST ALT during chemo, resolved. Excess fluid volume 03/21/2013 12/26/2015 Overview: --diuresis as needed --continue to monitor volume status CINV (chemotherapy-induced nausea and vomiting) 03/17/2013 10/13/2015 Overview: --Resolved --Ativan PRN (none used) Peripheral neuropathy 03/16/2013 12/26/2015 Overview: --gabapentin 300mg TID with increased symptoms, bedtime dose of gabapentin increased to 600mg with improvement reported, continue DVT prophylaxis 03/16/2013 12/26/2015 Overview: --platelet count decreasing, d/c heparin SQ --encourage ambulation Insomnia 03/16/2013 12/26/2015 Overview: --ambien PRN at HS, with relief, but with vivid dreams, ambien d/c --restoril at 30mg PRN at HS with relief, continue Chronic chest pain 03/16/2013 12/26/2015 Overview: --now resolved --since Hodgkin lymphoma diagnosis per patient Hospital discharge follow-up 03/16/201308/2015 Overview: --Patient will need to follow up with Dr. Unger after discharge Tachycardia 03/16/2013 12/26/2015 Overview: --patient taking atenolol 100mg BID at home, now BP running lower, decreased atenolol dose to 50mg BID with hypotension. --increase to 75mg BID, d/t tachycardia(HRs >110 while afebrile), HR now controlled, continue --monitor closely Electrolyte and fluid disorders not elsewhere cl assified 02/16/2013 12/26/2015 DISPOSITION AND FOLLOW-UP 10/27/20122015 Overview: 32 yo female from [place], [place]. Family involved with care, at bedside. plan to discharge patient home - will arrange with case management for post op care as needed - follow up in OPD in 7-10 days Post-op pain 10/27/2012 12/26/2015 Overview: currently well controlled with [employer] REPRESENTATIVE. will start PO pain meds today 10/27. tolerating percocet, pain relatively well controlled. Hodgkin's disease with nodular sclerosis 013 12/26/2015 Overview: Oncology history (per Dr. 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 Hodgkin's disease, unspecified 02/05/2012 0 05/11/2014 Vaginal bleeding 12/26/2015 Overview: --likely from thrombocytopenia. No menses in prior 8 months. Scant amount reported on 03/29 and 03/30, now resolved --monitor bleeding by counting pads --should f/u with her [employer] provider after BMT Premature menopause 12/26/2015 Postmenopausal atrophic vaginitis 12/26/2015 Dyspareunia 12/26/2015 documented as of this encounter (statuses as of 06/12/2022) [facility]01-26-2018 History of Past illness Narrative* Problem Noted Date Resolved Date Menorrhagia with regular cycle 03/15/2017 1 03/03/2017 Overview: Added automatically from request for surgery [id number] History of pulmonary embolism 04/25/2016 Neoplastic (malignant) related fatigue 7 01/01/2018 Hidradenitis suppurativa 01/17/2016 018 Vitamin D deficiency 06/09/2015 12/26/2015 HyperCKemia 05/06/2015 12/26/2015 Elevated aldolase level 05/06/2015 12/26/19 16 Chronic pain of both knees 05/06/201512/25 Pain in joint, multiple sites 05/06/2015 Myalgia 05/06/2015 12/26/2015 Fatigue 05/06/2015 12/26/2015 Malaise and fatigue 03/24/2015 12/26/2015 Gastroesophageal reflux disease without esophagi tis 02/23/2015 12/26/2015 Laryngitis 02/23/2015 12/26/2015 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 10/28/2014 12/26/2015 Papanicolaou smear of cervix with low grade squamous intraepithelial lesion (LGSIL) 10/24/2014 12/25/2019 Pain in joint, ankle and foot 09/27/2014 ASCUS favor dysplasia 09/18/2014 12/26/2015 Visit for gynecologic examination 09/07/2014 12/26/2015 Postmenopausal HRT (hormone replacement therapy) 08/18/2014 12/26/2015 Overview: offered Gait abnormality 07/22/2014 12/26/2015 Weakness of both legs 07/22/2014 12/26/2015 Sprain of ankle, left 06/29/2014 12/26/2015 PCP (pneumocystis jiroveci pneumonia) 06/03/2014 12/26/2015 Acute respiratory failure with hypoxemia 015 12/26/2015 Overview: Increased O2 requirement overnight (2L to 5L) - bronchoscopy with BAL/TBLB tomorrow 8 AM. - NPO from midnight - hold tonight dose of lovenox. Radiation pneumonitis 05/11/2014 12/26/2015 Overview: 40 mg prednisone daily Immunodeficiency with predominant T-cell defect, unspecified 03/11/2014 12/26/2015 Urgency of micturation 03/04/2014 6 Urinary frequency 03/04/2014 12/26/2015 Arm pain, left 07/06/2013 12/26/2015 Back pain without radiation 07/06/201308/2015 Abnormal finding on imaging 07/06/201308/2015 Elevated sed rate 07/06/2013 12/26/2015 Hyperpigmentation of skin 03/31/20132015 Overview: --resolved --bilateral breast tissue and axilla --order mycolog cream --monitor Diarrhea 03/31/2013 12/26/2015 Overview: - c diff pending Mucositis (ulcerative) due to antineoplastic the rapy 03/24/2013 12/26/2015 Overview: --improved --oxy prn --mouth care measures. Reflux 03/23/2013 12/26/2015 Overview: --improved with protonix Elevated LFTs 03/22/2013 12/26/2015 Overview: --increased AST ALT during chemo, resolved. Excess fluid volume 03/21/2013 12/26/2015 Overview: --diuresis as needed --continue to monitor volume status CINV (chemotherapy-induced nausea and vomiting) 03/17/2013 10/13/2015 Overview: --Resolved --Ativan PRN (none used) Peripheral neuropathy 03/16/2013 12/26/2015 Overview: --gabapentin 300mg TID with increased symptoms, bedtime dose of gabapentin increased to 600mg with improvement reported, continue DVT prophylaxis 03/16/2013 12/26/2015 Overview: --platelet count decreasing, d/c heparin SQ --encourage ambulation Insomnia 03/16/2013 12/26/2015 Overview: --ambien PRN at HS, with relief, but with vivid dreams, ambien d/c --restoril at 30mg PRN at HS with relief, continue Chronic chest pain 03/16/2013 12/26/2015 Overview: --now resolved --since Hodgkin lymphoma diagnosis per patient Hospital discharge follow-up 03/16/201308/2015 Overview: --Patient will need to follow up with Dr. Unger after discharge Tachycardia 03/16/2013 12/26/2015 Overview: --patient taking atenolol 100mg BID at home, now BP running lower, decreased atenolol dose to 50mg BID with hypotension. --increase to 75mg BID, d/t tachycardia(HRs >110 while afebrile), HR now controlled, continue --monitor closely Electrolyte and fluid disorders not elsewhere cl assified 02/16/2013 12/26/2015 DISPOSITION AND FOLLOW-UP 10/27/20122015 Overview: 32 yo female from [place], [place]. Family involved with care, at bedside. plan to discharge patient home - will arrange with case management for post op care as needed - follow up in OPD in 7-10 days Post-op pain 10/27/2012 12/26/2015 Overview: currently well controlled with [employer] REPRESENT[employer]IVE. will start PO pain meds today 10/27. tolerating percocet, pain relatively well controlled. Hodgkin's disease with nodular sclerosis 013 12/26/2015 Overview: Oncology history (per Dr. 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 Hodgkin's disease, unspecified 02/05/2012 0 05/11/2014 Vaginal bleeding 12/26/2015 Overview: --likely from thrombocytopenia. No menses in prior 8 months. Scant amount reported on 03/29 and 03/30, now resolved --monitor bleeding by counting pads --should f/u with her [employer] [employer] provider after BMT Premature menopause 12/26/2015 Postmenopausal atrophic vaginitis 12/26/2015 Dyspareunia 12/26/2015 documented as of this encounter (statuses as of 06/15/2022) [facility] History of Past illness Narrative* Problem Noted Date Resolved Date Menorrhagia with regular cycle 03/15/2017 1 03/03/2017 Overview: Added automatically from request for surgery [id number] History of pulmonary embolism 04/25/2016 Neoplastic (malignant) related fatigue 7 01/01/2018 Hidradenitis suppurativa 01/17/2016 018 Vitamin D deficiency 06/09/2015 12/26/2015 HyperCKemia 05/06/2015 12/26/2015 Elevated aldolase level 05/06/2015 12/26/19 16 Chronic pain of both knees 05/06/201512/25 Pain in joint, multiple sites 05/06/2015 Myalgia 05/06/2015 12/26/2015 Fatigue 05/06/2015 12/26/2015 Malaise and fatigue 03/24/2015 12/26/2015 Gastroesophageal reflux disease without esophagi tis 02/23/2015 12/26/2015 Laryngitis 02/23/2015 12/26/2015 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 10/28/2014 12/26/2015 Papanicolaou smear of cervix with low grade squamous intraepithelial lesion (LGSIL) 10/24/2014 12/25/2019 Pain in joint, ankle and foot 09/27/2014 ASCUS favor dysplasia 09/18/2014 12/26/2015 Visit for gynecologic examination 09/07/2014 12/26/2015 Postmenopausal HRT (hormone replacement therapy) 08/18/2014 12/26/2015 Overview: offered Gait abnormality 07/22/2014 12/26/2015 Weakness of both legs 07/22/2014 12/26/2015 Sprain of ankle, left 06/29/2014 12/26/2015 PCP (pneumocystis jiroveci pneumonia) 06/03/2014 12/26/2015 Acute respiratory failure with hypoxemia 015 12/26/2015 Overview: Increased O2 requirement overnight (2L to 5L) - bronchoscopy with BAL/TBLB tomorrow 8 AM. - NPO from midnight - hold tonight dose of lovenox. Radiation pneumonitis 05/11/2014 12/26/2015 Overview: 40 mg prednisone daily Immunodeficiency with predominant T-cell defect, unspecified 03/11/2014 12/26/2015 Urgency of micturation 03/04/2014 6 Urinary frequency 03/04/2014 12/26/2015 Arm pain, left 07/06/2013 12/26/2015 Back pain without radiation 07/06/201308/2015 Abnormal finding on imaging 07/06/201308/2015 Elevated sed rate 07/06/2013 12/26/2015 Hyperpigmentation of skin 03/31/20132015 Overview: --resolved --bilateral breast tissue and axilla --order mycolog cream --monitor Diarrhea 03/31/2013 12/26/2015 Overview: - c diff pending Mucositis (ulcerative) due to antineoplastic the rapy 03/24/2013 12/26/2015 Overview: --improved --oxy prn --mouth care measures. Reflux 03/23/2013 12/26/2015 Overview: --improved with protonix Elevated LFTs 03/22/2013 12/26/2015 Overview: --increased AST ALT during chemo, resolved. Excess fluid volume 03/21/2013 12/26/2015 Overview: --diuresis as needed --continue to monitor volume status CINV (chemotherapy-induced nausea and vomiting) 03/17/2013 10/13/2015 Overview: --Resolved --Ativan PRN (none used) Peripheral neuropathy 03/16/2013 12/26/2015 Overview: --gabapentin 300mg TID with increased symptoms, bedtime dose of gabapentin increased to 600mg with improvement reported, continue DVT prophylaxis 03/16/2013 12/26/2015 Overview: --platelet count decreasing, d/c heparin SQ --encourage ambulation Insomnia 03/16/2013 12/26/2015 Overview: --ambien PRN at HS, with relief, but with vivid dreams, ambien d/c --restoril at 30mg PRN at HS with relief, continue Chronic chest pain 03/16/2013 12/26/2015 Overview: --now resolved --since Hodgkin lymphoma diagnosis per patient Hospital discharge follow-up 03/16/201308/2015 Overview: --Patient will need to follow up with Dr. Unger after discharge Tachycardia 03/16/2013 12/26/2015 Overview: --patient taking atenolol 100mg BID at home, now BP running lower, decreased atenolol dose to 50mg BID with hypotension. --increase to 75mg BID, d/t tachycardia(HRs >110 while afebrile), HR now controlled, continue --monitor closely Electrolyte and fluid disorders not elsewhere cl assified 02/16/2013 12/26/2015 DISPOSITION AND FOLLOW-UP 10/27/20122015 Overview: 32 yo female from [place], [place]. Family involved with care, at bedside. plan to discharge patient home - will arrange with case management for post op care as needed - follow up in OPD in 7-10 days Post-op pain 10/27/2012 12/26/2015 Overview: currently well controlled with [employer] REPRESENT[employer]IVE. will start PO pain meds today 10/27. tolerating percocet, pain relatively well controlled. Hodgkin's disease with nodular sclerosis 013 12/26/2015 Overview: Oncology history (per Dr. 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 Hodgkin's disease, unspecified 02/05/2012 0 05/11/2014 Vaginal bleeding 12/26/2015 Overview: --likely from thrombocytopenia. No menses in prior 8 months. Scant amount reported on 03/29 and 03/30, now resolved --monitor bleeding by counting pads --should f/u with her [employer] provider after BMT Premature menopause 12/26/2015 Postmenopausal atrophic vaginitis 12/26/2015 Dyspareunia 12/26/2015 documented as of this encounter (statuses as of 07/17/2022) [facility]01[facility] History of Past illness Narrative* Problem Noted Date Resolved Date Menorrhagia with regular cycle 03/15/2017 1 03/03/2017 Overview: Added automatically from request for surgery [id number] History of pulmonary embolism 04/25/2016 Neoplastic (malignant) related fatigue 7 01/01/2018 Hidradenitis suppurativa 01/17/2016 018 Vitamin D deficiency 06/09/2015 12/26/2015 HyperCKemia 05/06/2015 12/26/2015 Elevated aldolase level 05/06/2015 12/26/19 16 Chronic pain of both knees 05/06/201512/25 Pain in joint, multiple sites 05/06/2015 Myalgia 05/06/2015 12/26/2015 Fatigue 05/06/2015 12/26/2015 Malaise and fatigue 03/24/2015 12/26/2015 Gastroesophageal reflux disease without esophagi tis 02/23/2015 12/26/2015 Laryngitis 02/23/2015 12/26/2015 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 10/28/2014 12/26/2015 Papanicolaou smear of cervix with low grade squamous intraepithelial lesion (LGSIL) 10/24/2014 12/25/2019 Pain in joint, ankle and foot 09/27/2014 ASCUS favor dysplasia 09/18/2014 12/26/2015 Visit for gynecologic examination 09/07/2014 12/26/2015 Postmenopausal HRT (hormone replacement therapy) 08/18/2014 12/26/2015 Overview: offered Gait abnormality 07/22/2014 12/26/2015 Weakness of both legs 07/22/2014 12/26/2015 Sprain of ankle, left 06/29/2014 12/26/2015 PCP (pneumocystis jiroveci pneumonia) 06/03/2014 12/26/2015 Acute respiratory failure with hypoxemia 015 12/26/2015 Overview: Increased O2 requirement overnight (2L to 5L) - bronchoscopy with BAL/TBLB tomorrow 8 AM. - NPO from midnight - hold tonight dose of lovenox. Radiation pneumonitis 05/11/2014 12/26/2015 Overview: 40 mg prednisone daily Immunodeficiency with predominant T-cell defect, unspecified 03/11/2014 12/26/2015 Urgency of micturation 03/04/2014 6 Urinary frequency 03/04/2014 12/26/2015 Arm pain, left 07/06/2013 12/26/2015 Back pain without radiation 07/06/201308/2015 Abnormal finding on imaging 07/06/201308/2015 Elevated sed rate 07/06/2013 12/26/2015 Hyperpigmentation of skin 03/31/20132015 Overview: --resolved --bilateral breast tissue and axilla --order mycolog cream --monitor Diarrhea 03/31/2013 12/26/2015 Overview: - c diff pending Mucositis (ulcerative) due to antineoplastic the rapy 03/24/2013 12/26/2015 Overview: --improved --oxy prn --mouth care measures. Reflux 03/23/2013 12/26/2015 Overview: --improved with protonix Elevated LFTs 03/22/2013 12/26/2015 Overview: --increased AST ALT during chemo, resolved. Excess fluid volume 03/21/2013 12/26/2015 Overview: --diuresis as needed --continue to monitor volume status CINV (chemotherapy-induced nausea and vomiting) 03/17/2013 10/13/2015 Overview: --Resolved --Ativan PRN (none used) Peripheral neuropathy 03/16/2013 12/26/2015 Overview: --gabapentin 300mg TID with increased symptoms, bedtime dose of gabapentin increased to 600mg with improvement reported, continue DVT prophylaxis 03/16/2013 12/26/2015 Overview: --platelet count decreasing, d/c heparin SQ --encourage ambulation Insomnia 03/16/2013 12/26/2015 Overview: --ambien PRN at HS, with relief, but with vivid dreams, ambien d/c --restoril at 30mg PRN at HS with relief, continue Chronic chest pain 03/16/2013 12/26/2015 Overview: --now resolved --since Hodgkin lymphoma diagnosis per patient Hospital discharge follow-up 03/16/201308/2015 Overview: --Patient will need to follow up with Dr. Unger after discharge Tachycardia 03/16/2013 12/26/2015 Overview: --patient taking atenolol 100mg BID at home, now BP running lower, decreased atenolol dose to 50mg BID with hypotension. --increase to 75mg BID, d/t tachycardia(HRs >110 while afebrile), HR now controlled, continue --monitor closely Electrolyte and fluid disorders not elsewhere cl assified 02/16/2013 12/26/2015 DISPOSITION AND FOLLOW-UP 10/27/20122015 Overview: 32 yo female from [place], [place]. Family involved with care, at bedside. plan to discharge patient home - will arrange with case management for post op care as needed - follow up in OPD in 7-10 days Post-op pain 10/27/2012 12/26/2015 Overview: currently well controlled with [employer] REPRESENT[employer]IVE. will start PO pain meds today 10/27. tolerating percocet, pain relatively well controlled. Hodgkin's disease with nodular sclerosis 013 12/26/2015 Overview: Oncology history (per Dr. 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 Hodgkin's disease, unspecified 02/05/2012 0 05/11/2014 Vaginal bleeding 12/26/2015 Overview: --likely from thrombocytopenia. No menses in prior 8 months. Scant amount reported on 03/29 and 03/30, now resolved --monitor bleeding by counting pads --should f/u with her [employer] provider after BMT Premature menopause 12/26/2015 Postmenopausal atrophic vaginitis 12/26/2015 Dyspareunia 12/26/2015 documented as of this encounter (statuses as of 07/17/2022) [facility] History of Past illness Narrative* Problem Noted Date Resolved Date Menorrhagia with regular cycle 03/15/2017 1 03/03/2017 Overview: Added automatically from request for surgery [id number] History of pulmonary embolism 04/25/2016 Neoplastic (malignant) related fatigue 7 01/01/2018 Hidradenitis suppurativa 01/17/2016 018 Vitamin D deficiency 06/09/2015 12/26/2015 HyperCKemia 05/06/2015 12/26/2015 Elevated aldolase level 05/06/2015 12/26/19 16 Chronic pain of both knees 05/06/201512/25 Pain in joint, multiple sites 05/06/2015 Myalgia 05/06/2015 12/26/2015 Fatigue 05/06/2015 12/26/2015 Malaise and fatigue 03/24/2015 12/26/2015 Gastroesophageal reflux disease without esophagi tis 02/23/2015 12/26/2015 Laryngitis 02/23/2015 12/26/2015 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 10/28/2014 12/26/2015 Papanicolaou smear of cervix with low grade squamous intraepithelial lesion (LGSIL) 10/24/2014 12/25/2019 Pain in joint, ankle and foot 09/27/2014 ASCUS favor dysplasia 09/18/2014 12/26/2015 Visit for gynecologic examination 09/07/2014 12/26/2015 Postmenopausal HRT (hormone replacement therapy) 08/18/2014 12/26/2015 Overview: offered Gait abnormality 07/22/2014 12/26/2015 Weakness of both legs 07/22/2014 12/26/2015 Sprain of ankle, left 06/29/2014 12/26/2015 PCP (pneumocystis jiroveci pneumonia) 06/03/2014 12/26/2015 Acute respiratory failure with hypoxemia 015 12/26/2015 Overview: Increased O2 requirement overnight (2L to 5L) - bronchoscopy with BAL/TBLB tomorrow 8 AM. - NPO from midnight - hold tonight dose of lovenox. Radiation pneumonitis 05/11/2014 12/26/2015 Overview: 40 mg prednisone daily Immunodeficiency with predominant T-cell defect, unspecified 03/11/2014 12/26/2015 Urgency of micturation 03/04/2014 6 Urinary frequency 03/04/2014 12/26/2015 Arm pain, left 07/06/2013 12/26/2015 Back pain without radiation 07/06/201308/2015 Abnormal finding on imaging 07/06/201308/2015 Elevated sed rate 07/06/2013 12/26/2015 Hyperpigmentation of skin 03/31/20132015 Overview: --resolved --bilateral breast tissue and axilla --order mycolog cream --monitor Diarrhea 03/31/2013 12/26/2015 Overview: - c diff pending Mucositis (ulcerative) due to antineoplastic the rapy 03/24/2013 12/26/2015 Overview: --improved --oxy prn --mouth care measures. Reflux 03/23/2013 12/26/2015 Overview: --improved with protonix Elevated LFTs 03/22/2013 12/26/2015 Overview: --increased AST ALT during chemo, resolved. Excess fluid volume 03/21/2013 12/26/2015 Overview: --diuresis as needed --continue to monitor volume status CINV (chemotherapy-induced nausea and vomiting) 03/17/2013 10/13/2015 Overview: --Resolved --Ativan PRN (none used) Peripheral neuropathy 03/16/2013 12/26/2015 Overview: --gabapentin 300mg TID with increased symptoms, bedtime dose of gabapentin increased to 600mg with improvement reported, continue DVT prophylaxis 03/16/2013 12/26/2015 Overview: --platelet count decreasing, d/c heparin SQ --encourage ambulation Insomnia 03/16/2013 12/26/2015 Overview: --ambien PRN at HS, with relief, but with vivid dreams, jeffien d/c --restoril at 30mg PRN at HS with relief, continue Chronic chest pain 03/16/2013 12/26/2015 Overview: --now resolved --since Hodgkin lymphoma diagnosis per patient Hospital discharge follow-up 03/16/201308/2015 Overview: --Patient will need to follow up with Dr. Unger after discharge Tachycardia 03/16/2013 12/26/2015 Overview: --patient taking atenolol 100mg BID at home, now BP running lower, decreased atenolol dose to 50mg BID with hypotension. --increase to 75mg BID, d/t tachycardia(HRs >110 while afebrile), HR now controlled, continue --monitor closely Electrolyte and fluid disorders not elsewhere cl assified 02/16/2013 12/26/2015 DISPOSITION AND FOLLOW-UP 10/27/20122015 Overview: 32 yo female from [place], [place]. Family involved with care, at bedside. plan to discharge patient home - will arrange with case management for post op care as needed - follow up in OPD in 7-10 days Post-op pain 10/27/2012 12/26/2015 Overview: currently well controlled with [employer] REPRESENTATIVE. will start PO pain meds today 10/27. tolerating percocet, pain relatively well controlled. Hodgkin's disease with nodular sclerosis 013 12/26/2015 Overview: Oncology history (per Dr. 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 Hodgkin's disease, unspecified 02/05/2012 0 05/11/2014 Vaginal bleeding 12/26/2015 Overview: --likely from thrombocytopenia. No menses in prior 8 months. Scant amount reported on 03/29 and 03/30, now resolved --monitor bleeding by counting pads --should f/u with her [employer] provider after BMT Premature menopause 12/26/2015 Postmenopausal atrophic vaginitis 12/26/2015 Dyspareunia 12/26/2015 documented as of this encounter (statuses as of 07/18/2022) [facility] History of Past illness Narrative* Problem Noted Date Resolved Date Menorrhagia with regular cycle 03/15/2017 1 03/03/2017 Overview: Added automatically from request for surgery [id number] History of pulmonary embolism 04/25/2016 Neoplastic (malignant) related fatigue 7 01/01/2018 Hidradenitis suppurativa 01/17/2016 018 Vitamin D deficiency 06/09/2015 12/26/2015 HyperCKemia 05/06/2015 12/26/2015 Elevated aldolase level 05/06/2015 12/26/19 16 Chronic pain of both knees 05/06/201512/25 Pain in joint, multiple sites 05/06/2015 Myalgia 05/06/2015 12/26/2015 Fatigue 05/06/2015 12/26/2015 Malaise and fatigue 03/24/2015 12/26/2015 Gastroesophageal reflux disease without esophagi tis 02/23/2015 12/26/2015 Laryngitis 02/23/2015 12/26/2015 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 10/28/2014 12/26/2015 Papanicolaou smear of cervix with low grade squamous intraepithelial lesion (LGSIL) 10/24/2014 12/25/2019 Pain in joint, ankle and foot 09/27/2014 ASCUS favor dysplasia 09/18/2014 12/26/2015 Visit for gynecologic examination 09/07/2014 12/26/2015 Postmenopausal HRT (hormone replacement therapy) 08/18/2014 12/26/2015 Overview: offered Gait abnormality 07/22/2014 12/26/2015 Weakness of both legs 07/22/2014 12/26/2015 Sprain of ankle, left 06/29/2014 12/26/2015 PCP (pneumocystis jiroveci pneumonia) 06/03/2014 12/26/2015 Acute respiratory failure with hypoxemia 015 12/26/2015 Overview: Increased O2 requirement overnight (2L to 5L) - bronchoscopy with BAL/TBLB tomorrow 8 AM. - NPO from midnight - hold tonight dose of lovenox. Radiation pneumonitis 05/11/2014 12/26/2015 Overview: 40 mg prednisone daily Immunodeficiency with predominant T-cell defect, unspecified 03/11/2014 12/26/2015 Urgency of micturation 03/04/2014 6 Urinary frequency 03/04/2014 12/26/2015 Arm pain, left 07/06/2013 12/26/2015 Back pain without radiation 07/06/201308/2015 Abnormal finding on imaging 07/06/201308/2015 Elevated sed rate 07/06/2013 12/26/2015 Hyperpigmentation of skin 03/31/20132015 Overview: --resolved --bilateral breast tissue and axilla --order mycolog cream --monitor Diarrhea 03/31/2013 12/26/2015 Overview: - c diff pending Mucositis (ulcerative) due to antineoplastic the rapy 03/24/2013 12/26/2015 Overview: --improved --oxy prn --mouth care measures. Reflux 03/23/2013 12/26/2015 Overview: --improved with protonix Elevated LFTs 03/22/2013 12/26/2015 Overview: --increased AST ALT during chemo, resolved. Excess fluid volume 03/21/2013 12/26/2015 Overview: --diuresis as needed --continue to monitor volume status CINV (chemotherapy-induced nausea and vomiting) 03/17/2013 10/13/2015 Overview: --Resolved --Ativan PRN (none used) Peripheral neuropathy 03/16/2013 12/26/2015 Overview: --gabapentin 300mg TID with increased symptoms, bedtime dose of gabapentin increased to 600mg with improvement reported, continue DVT prophylaxis 03/16/2013 12/26/2015 Overview: --platelet count decreasing, d/c heparin SQ --encourage ambulation Insomnia 03/16/2013 12/26/2015 Overview: --ambien PRN at HS, with relief, but with vivid dreams, ambien d/c --restoril at 30mg PRN at HS with relief, continue Chronic chest pain 03/16/2013 12/26/2015 Overview: --now resolved --since Hodgkin lymphoma diagnosis per patient Hospital discharge follow-up 03/16/201308/2015 Overview: --Patient will need to follow up with Dr. Unger after discharge Tachycardia 03/16/2013 12/26/2015 Overview: --patient taking atenolol 100mg BID at home, now BP running lower, decreased atenolol dose to 50mg BID with hypotension. --increase to 75mg BID, d/t tachycardia(HRs >110 while afebrile), HR now controlled, continue --monitor closely Electrolyte and fluid disorders not elsewhere cl assified 02/16/2013 12/26/2015 DISPOSITION AND FOLLOW-UP 10/27/20122015 Overview: 32 yo female from [place], [place]. Family involved with care, at bedside. plan to discharge patient home - will arrange with case management for post op care as needed - follow up in OPD in 7-10 days Post-op pain 10/27/2012 12/26/2015 Overview: currently well controlled with [employer] REPRESENTATIVE. will start PO pain meds today 10/27. tolerating percocet, pain relatively well controlled. Hodgkin's disease with nodular sclerosis 013 12/26/2015 Overview: Oncology history (per Dr. 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 Hodgkin's disease, unspecified 02/05/2012 0 05/11/2014 Vaginal bleeding 12/26/2015 Overview: --likely from thrombocytopenia. No menses in prior 8 months. Scant amount reported on 03/29 and 03/30, now resolved --monitor bleeding by counting pads --should f/u with her [employer] [employer] provider after BMT Premature menopause 12/26/2015 Postmenopausal atrophic vaginitis 12/26/2015 Dyspareunia 12/26/2015 documented as of this encounter (statuses as of 07/19/2022) [facility] History of Past illness Narrative* Problem Noted Date Resolved Date Menorrhagia with regular cycle 03/15/2017 1 03/03/2017 Overview: Added automatically from request for surgery [id number] History of pulmonary embolism 04/25/2016 Neoplastic (malignant) related fatigue 7 01/01/2018 Hidradenitis suppurativa 01/17/2016 018 Vitamin D deficiency 06/09/2015 12/26/2015 HyperCKemia 05/06/2015 12/26/2015 Elevated aldolase level 05/06/2015 12/26/19 16 Chronic pain of both knees 05/06/201512/25 Pain in joint, multiple sites 05/06/2015 Myalgia 05/06/2015 12/26/2015 Fatigue 05/06/2015 12/26/2015 Malaise and fatigue 03/24/2015 12/26/2015 Gastroesophageal reflux disease without esophagi tis 02/23/2015 12/26/2015 Laryngitis 02/23/2015 12/26/2015 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 10/28/2014 12/26/2015 Papanicolaou smear of cervix with low grade squamous intraepithelial lesion (LGSIL) 10/24/2014 12/25/2019 Pain in joint, ankle and foot 09/27/2014 ASCUS favor dysplasia 09/18/2014 12/26/2015 Visit for gynecologic examination 09/07/2014 12/26/2015 Postmenopausal HRT (hormone replacement therapy) 08/18/2014 12/26/2015 Overview: offered Gait abnormality 07/22/2014 12/26/2015 Weakness of both legs 07/22/2014 12/26/2015 Sprain of ankle, left 06/29/2014 12/26/2015 PCP (pneumocystis jiroveci pneumonia) 06/03/2014 12/26/2015 Acute respiratory failure with hypoxemia 015 12/26/2015 Overview: Increased O2 requirement overnight (2L to 5L) - bronchoscopy with BAL/TBLB tomorrow 8 AM. - NPO from midnight - hold tonight dose of lovenox. Radiation pneumonitis 05/11/2014 12/26/2015 Overview: 40 mg prednisone daily Immunodeficiency with predominant T-cell defect, unspecified 03/11/2014 12/26/2015 Urgency of micturation 03/04/2014 6 Urinary frequency 03/04/2014 12/26/2015 Arm pain, left 07/06/2013 12/26/2015 Back pain without radiation 07/06/201308/2015 Abnormal finding on imaging 07/06/201308/2015 Elevated sed rate 07/06/2013 12/26/2015 Hyperpigmentation of skin 03/31/20132015 Overview: --resolved --bilateral breast tissue and axilla --order mycolog cream --monitor Diarrhea 03/31/2013 12/26/2015 Overview: - c diff pending Mucositis (ulcerative) due to antineoplastic the rapy 03/24/2013 12/26/2015 Overview: --improved --oxy prn --mouth care measures. Reflux 03/23/2013 12/26/2015 Overview: --improved with protonix Elevated LFTs 03/22/2013 12/26/2015 Overview: --increased AST ALT during chemo, resolved. Excess fluid volume 03/21/2013 12/26/2015 Overview: --diuresis as needed --continue to monitor volume status CINV (chemotherapy-induced nausea and vomiting) 03/17/2013 10/13/2015 Overview: --Resolved --Ativan PRN (none used) Peripheral neuropathy 03/16/2013 12/26/2015 Overview: --gabapentin 300mg TID with increased symptoms, bedtime dose of gabapentin increased to 600mg with improvement reported, continue DVT prophylaxis 03/16/2013 12/26/2015 Overview: --platelet count decreasing, d/c heparin SQ --encourage ambulation Insomnia 03/16/2013 12/26/2015 Overview: --ambien PRN at HS, with relief, but with vivid dreams, ambien d/c --restoril at 30mg PRN at HS with relief, continue Chronic chest pain 03/16/2013 12/26/2015 Overview: --now resolved --since Hodgkin lymphoma diagnosis per patient Hospital discharge follow-up 03/16/201308/2015 Overview: --Patient will need to follow up with Dr. Unger after discharge Tachycardia 03/16/2013 12/26/2015 Overview: --patient taking atenolol 100mg BID at home, now BP running lower, decreased atenolol dose to 50mg BID with hypotension. --increase to 75mg BID, d/t tachycardia(HRs >110 while afebrile), HR now controlled, continue --monitor closely Electrolyte and fluid disorders not elsewhere cl assified 02/16/2013 12/26/2015 DISPOSITION AND FOLLOW-UP 10/27/20122015 Overview: 32 yo female from [place], [place]. Family involved with care, at bedside. plan to discharge patient home - will arrange with case management for post op care as needed - follow up in OPD in 7-10 days Post-op pain 10/27/2012 12/26/2015 Overview: currently well controlled with [employer] REPRESENT[employer]IVE. will start PO pain meds today 10/27. tolerating percocet, pain relatively well controlled. Hodgkin's disease with nodular sclerosis 013 12/26/2015 Overview: Oncology history (per Dr. 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 Hodgkin's disease, unspecified 02/05/2012 0 05/11/2014 Vaginal bleeding 12/26/2015 Overview: --likely from thrombocytopenia. No menses in prior 8 months. Scant amount reported on 03/29 and 03/30, now resolved --monitor bleeding by counting pads --should f/u with her [employer] provider after BMT Premature menopause 12/26/2015 Postmenopausal atrophic vaginitis 12/26/2015 Dyspareunia 12/26/2015 documented as of this encounter (statuses as of 07/19/2022) [facility] History of Past illness Narrative* Problem Noted Date Resolved Date Menorrhagia with regular cycle 03/15/2017 1 03/03/2017 Overview: Added automatically from request for surgery [id number] History of pulmonary embolism 04/25/2016 Neoplastic (malignant) related fatigue 7 01/01/2018 Hidradenitis suppurativa 01/17/2016 018 Vitamin D deficiency 06/09/2015 12/26/2015 HyperCKemia 05/06/2015 12/26/2015 Elevated aldolase level 05/06/2015 12/26/19 16 Chronic pain of both knees 05/06/201512/25 Pain in joint, multiple sites 05/06/2015 Myalgia 05/06/2015 12/26/2015 Fatigue 05/06/2015 12/26/2015 Malaise and fatigue 03/24/2015 12/26/2015 Gastroesophageal reflux disease without esophagi tis 02/23/2015 12/26/2015 Laryngitis 02/23/2015 12/26/2015 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 10/28/2014 12/26/2015 Papanicolaou smear of cervix with low grade squamous intraepithelial lesion (LGSIL) 10/24/2014 12/25/2019 Pain in joint, ankle and foot 09/27/2014 ASCUS favor dysplasia 09/18/2014 12/26/2015 Visit for gynecologic examination 09/07/2014 12/26/2015 Postmenopausal HRT (hormone replacement therapy) 08/18/2014 12/26/2015 Overview: offered Gait abnormality 07/22/2014 12/26/2015 Weakness of both legs 07/22/2014 12/26/2015 Sprain of ankle, left 06/29/2014 12/26/2015 PCP (pneumocystis jiroveci pneumonia) 06/03/2014 12/26/2015 Acute respiratory failure with hypoxemia 015 12/26/2015 Overview: Increased O2 requirement overnight (2L to 5L) - bronchoscopy with BAL/TBLB tomorrow 8 AM. - NPO from midnight - hold tonight dose of lovenox. Radiation pneumonitis 05/11/2014 12/26/2015 Overview: 40 mg prednisone daily Immunodeficiency with predominant T-cell defect, unspecified 03/11/2014 12/26/2015 Urgency of micturation 03/04/2014 6 Urinary frequency 03/04/2014 12/26/2015 Arm pain, left 07/06/2013 12/26/2015 Back pain without radiation 07/06/201308/2015 Abnormal finding on imaging 07/06/201308/2015 Elevated sed rate 07/06/2013 12/26/2015 Hyperpigmentation of skin 03/31/20132015 Overview: --resolved --bilateral breast tissue and axilla --order mycolog cream --monitor Diarrhea 03/31/2013 12/26/2015 Overview: - c diff pending Mucositis (ulcerative) due to antineoplastic the rapy 03/24/2013 12/26/2015 Overview: --improved --oxy prn --mouth care measures. Reflux 03/23/2013 12/26/2015 Overview: --improved with protonix Elevated LFTs 03/22/2013 12/26/2015 Overview: --increased AST ALT during chemo, resolved. Excess fluid volume 03/21/2013 12/26/2015 Overview: --diuresis as needed --continue to monitor volume status CINV (chemotherapy-induced nausea and vomiting) 03/17/2013 10/13/2015 Overview: --Resolved --Ativan PRN (none used) Peripheral neuropathy 03/16/2013 12/26/2015 Overview: --gabapentin 300mg TID with increased symptoms, bedtime dose of gabapentin increased to 600mg with improvement reported, continue DVT prophylaxis 03/16/2013 12/26/2015 Overview: --platelet count decreasing, d/c heparin SQ --encourage ambulation Insomnia 03/16/2013 12/26/2015 Overview: --ambien PRN at HS, with relief, but with vivid dreams, ejffien d/c --restoril at 30mg PRN at HS with relief, continue Chronic chest pain 03/16/2013 12/26/2015 Overview: --now resolved --since Hodgkin lymphoma diagnosis per patient Hospital discharge follow-up 03/16/201308/2015 Overview: --Patient will need to follow up with Dr. Unger after discharge Tachycardia 03/16/2013 12/26/2015 Overview: --patient taking atenolol 100mg BID at home, now BP running lower, decreased atenolol dose to 50mg BID with hypotension. --increase to 75mg BID, d/t tachycardia(HRs >110 while afebrile), HR now controlled, continue --monitor closely Electrolyte and fluid disorders not elsewhere cl assified 02/16/2013 12/26/2015 DISPOSITION AND FOLLOW-UP 10/27/20122015 Overview: 32 yo female from [place], [place]. Family involved with care, at bedside. plan to discharge patient home - will arrange with case management for post op care as needed - follow up in OPD in 7-10 days Post-op pain 10/27/2012 12/26/2015 Overview: currently well controlled with [employer] REPRESENTATIVE. will start PO pain meds today 10/27. tolerating percocet, pain relatively well controlled. Hodgkin's disease with nodular sclerosis 013 12/26/2015 Overview: Oncology history (per Dr. 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 Hodgkin's disease, unspecified 02/05/2012 0 05/11/2014 Vaginal bleeding 12/26/2015 Overview: --likely from thrombocytopenia. No menses in prior 8 months. Scant amount reported on 03/29 and 03/30, now resolved --monitor bleeding by counting pads --should f/u with her [employer] provider after BMT Premature menopause 12/26/2015 Postmenopausal atrophic vaginitis 12/26/2015 Dyspareunia 12/26/2015 documented as of this encounter (statuses as of 07/25/2022) [facility] History of Past illness Narrative* Problem Noted Date Resolved Date Menorrhagia with regular cycle 03/15/2017 1 03/03/2017 Overview: Added automatically from request for surgery [id number] History of pulmonary embolism 04/25/2016 Neoplastic (malignant) related fatigue 7 01/01/2018 Hidradenitis suppurativa 01/17/2016 018 Vitamin D deficiency 06/09/2015 12/26/2015 HyperCKemia 05/06/2015 12/26/2015 Elevated aldolase level 05/06/2015 12/26/19 16 Chronic pain of both knees 05/06/201512/25 Pain in joint, multiple sites 05/06/2015 Myalgia 05/06/2015 12/26/2015 Fatigue 05/06/2015 12/26/2015 Malaise and fatigue 03/24/2015 12/26/2015 Gastroesophageal reflux disease without esophagi tis 02/23/2015 12/26/2015 Laryngitis 02/23/2015 12/26/2015 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 10/28/2014 12/26/2015 Papanicolaou smear of cervix with low grade squamous intraepithelial lesion (LGSIL) 10/24/2014 12/25/2019 Pain in joint, ankle and foot 09/27/2014 ASCUS favor dysplasia 09/18/2014 12/26/2015 Visit for gynecologic examination 09/07/2014 12/26/2015 Postmenopausal HRT (hormone replacement therapy) 08/18/2014 12/26/2015 Overview: offered Gait abnormality 07/22/2014 12/26/2015 Weakness of both legs 07/22/2014 12/26/2015 Sprain of ankle, left 06/29/2014 12/26/2015 PCP (pneumocystis jiroveci pneumonia) 06/03/2014 12/26/2015 Acute respiratory failure with hypoxemia 015 12/26/2015 Overview: Increased O2 requirement overnight (2L to 5L) - bronchoscopy with BAL/TBLB tomorrow 8 AM. - NPO from midnight - hold tonight dose of lovenox. Radiation pneumonitis 05/11/2014 12/26/2015 Overview: 40 mg prednisone daily Immunodeficiency with predominant T-cell defect, unspecified 03/11/2014 12/26/2015 Urgency of micturation 03/04/2014 6 Urinary frequency 03/04/2014 12/26/2015 Arm pain, left 07/06/2013 12/26/2015 Back pain without radiation 07/06/201308/2015 Abnormal finding on imaging 07/06/201308/2015 Elevated sed rate 07/06/2013 12/26/2015 Hyperpigmentation of skin 03/31/20132015 Overview: --resolved --bilateral breast tissue and axilla --order mycolog cream --monitor Diarrhea 03/31/2013 12/26/2015 Overview: - c diff pending Mucositis (ulcerative) due to antineoplastic the rapy 03/24/2013 12/26/2015 Overview: --improved --oxy prn --mouth care measures. Reflux 03/23/2013 12/26/2015 Overview: --improved with protonix Elevated LFTs 03/22/2013 12/26/2015 Overview: --increased AST ALT during chemo, resolved. Excess fluid volume 03/21/2013 12/26/2015 Overview: --diuresis as needed --continue to monitor volume status CINV (chemotherapy-induced nausea and vomiting) 03/17/2013 10/13/2015 Overview: --Resolved --Ativan PRN (none used) Peripheral neuropathy 03/16/2013 12/26/2015 Overview: --gabapentin 300mg TID with increased symptoms, bedtime dose of gabapentin increased to 600mg with improvement reported, continue DVT prophylaxis 03/16/2013 12/26/2015 Overview: --platelet count decreasing, d/c heparin SQ --encourage ambulation Insomnia 03/16/2013 12/26/2015 Overview: --ambien PRN at HS, with relief, but with vivid dreams, ambien d/c --restoril at 30mg PRN at HS with relief, continue Chronic chest pain 03/16/2013 12/26/2015 Overview: --now resolved --since Hodgkin lymphoma diagnosis per patient Hospital discharge follow-up 03/16/201308/2015 Overview: --Patient will need to follow up with Dr. Unger after discharge Tachycardia 03/16/2013 12/26/2015 Overview: --patient taking atenolol 100mg BID at home, now BP running lower, decreased atenolol dose to 50mg BID with hypotension. --increase to 75mg BID, d/t tachycardia(HRs >110 while afebrile), HR now controlled, continue --monitor closely Electrolyte and fluid disorders not elsewhere cl assified 02/16/2013 12/26/2015 DISPOSITION AND FOLLOW-UP 10/27/20122015 Overview: 32 yo female from [place], [place]. Family involved with care, at bedside. plan to discharge patient home - will arrange with case management for post op care as needed - follow up in OPD in 7-10 days Post-op pain 10/27/2012 12/26/2015 Overview: currently well controlled with [employer] REPRESENTATIVE. will start PO pain meds today 10/27. tolerating percocet, pain relatively well controlled. Hodgkin's disease with nodular sclerosis 013 12/26/2015 Overview: Oncology history (per Dr. 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 Hodgkin's disease, unspecified 02/05/2012 0 05/11/2014 Vaginal bleeding 12/26/2015 Overview: --likely from thrombocytopenia. No menses in prior 8 months. Scant amount reported on 03/29 and 03/30, now resolved --monitor bleeding by counting pads --should f/u with her [employer] provider after BMT Premature menopause 12/26/2015 Postmenopausal atrophic vaginitis 12/26/2015 Dyspareunia 12/26/2015 documented as of this encounter (statuses as of 07/25/2022) [facility] History of Past illness Narrative* Problem Noted Date Resolved Date Menorrhagia with regular cycle 03/15/2017 1 03/03/2017 Overview: Added automatically from request for surgery [id number] History of pulmonary embolism 04/25/2016 Neoplastic (malignant) related fatigue 7 01/01/2018 Hidradenitis suppurativa 01/17/2016 018 Vitamin D deficiency 06/09/2015 12/26/2015 HyperCKemia 05/06/2015 12/26/2015 Elevated aldolase level 05/06/2015 12/26/19 16 Chronic pain of both knees 05/06/201512/25 Pain in joint, multiple sites 05/06/2015 Myalgia 05/06/2015 12/26/2015 Fatigue 05/06/2015 12/26/2015 Malaise and fatigue 03/24/2015 12/26/2015 Gastroesophageal reflux disease without esophagi tis 02/23/2015 12/26/2015 Laryngitis 02/23/2015 12/26/2015 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 10/28/2014 12/26/2015 Papanicolaou smear of cervix with low grade squamous intraepithelial lesion (LGSIL) 10/24/2014 12/25/2019 Pain in joint, ankle and foot 09/27/2014 ASCUS favor dysplasia 09/18/2014 12/26/2015 Visit for gynecologic examination 09/07/2014 12/26/2015 Postmenopausal HRT (hormone replacement therapy) 08/18/2014 12/26/2015 Overview: offered Gait abnormality 07/22/2014 12/26/2015 Weakness of both legs 07/22/2014 12/26/2015 Sprain of ankle, left 06/29/2014 12/26/2015 PCP (pneumocystis jiroveci pneumonia) 06/03/2014 12/26/2015 Acute respiratory failure with hypoxemia 015 12/26/2015 Overview: Increased O2 requirement overnight (2L to 5L) - bronchoscopy with BAL/TBLB tomorrow 8 AM. - NPO from midnight - hold tonight dose of lovenox. Radiation pneumonitis 05/11/2014 12/26/2015 Overview: 40 mg prednisone daily Immunodeficiency with predominant T-cell defect, unspecified 03/11/2014 12/26/2015 Urgency of micturation 03/04/2014 6 Urinary frequency 03/04/2014 12/26/2015 Arm pain, left 07/06/2013 12/26/2015 Back pain without radiation 07/06/201308/2015 Abnormal finding on imaging 07/06/201308/2015 Elevated sed rate 07/06/2013 12/26/2015 Hyperpigmentation of skin 03/31/20132015 Overview: --resolved --bilateral breast tissue and axilla --order mycolog cream --monitor Diarrhea 03/31/2013 12/26/2015 Overview: - c diff pending Mucositis (ulcerative) due to antineoplastic the rapy 03/24/2013 12/26/2015 Overview: --improved --oxy prn --mouth care measures. Reflux 03/23/2013 12/26/2015 Overview: --improved with protonix Elevated LFTs 03/22/2013 12/26/2015 Overview: --increased AST ALT during chemo, resolved. Excess fluid volume 03/21/2013 12/26/2015 Overview: --diuresis as needed --continue to monitor volume status CINV (chemotherapy-induced nausea and vomiting) 03/17/2013 10/13/2015 Overview: --Resolved --Ativan PRN (none used) Peripheral neuropathy 03/16/2013 12/26/2015 Overview: --gabapentin 300mg TID with increased symptoms, bedtime dose of gabapentin increased to 600mg with improvement reported, continue DVT prophylaxis 03/16/2013 12/26/2015 Overview: --platelet count decreasing, d/c heparin SQ --encourage ambulation Insomnia 03/16/2013 12/26/2015 Overview: --ambien PRN at HS, with relief, but with vivid dreams, ambien d/c --restoril at 30mg PRN at HS with relief, continue Chronic chest pain 03/16/2013 12/26/2015 Overview: --now resolved --since Hodgkin lymphoma diagnosis per patient Hospital discharge follow-up 03/16/201308/2015 Overview: --Patient will need to follow up with Dr. Unger after discharge Tachycardia 03/16/2013 12/26/2015 Overview: --patient taking atenolol 100mg BID at home, now BP running lower, decreased atenolol dose to 50mg BID with hypotension. --increase to 75mg BID, d/t tachycardia(HRs >110 while afebrile), HR now controlled, continue --monitor closely Electrolyte and fluid disorders not elsewhere cl assified 02/16/2013 12/26/2015 DISPOSITION AND FOLLOW-UP 10/27/20122015 Overview: 32 yo female from [place], [place]. Family involved with care, at bedside. plan to discharge patient home - will arrange with case management for post op care as needed - follow up in OPD in 7-10 days Post-op pain 10/27/2012 12/26/2015 Overview: currently well controlled with [employer] REPRESENTATIVE. will start PO pain meds today 10/27. tolerating percocet, pain relatively well controlled. Hodgkin's disease with nodular sclerosis 013 12/26/2015 Overview: Oncology history (per Dr. 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 Hodgkin's disease, unspecified 02/05/2012 0 05/11/2014 Vaginal bleeding 12/26/2015 Overview: --likely from thrombocytopenia. No menses in prior 8 months. Scant amount reported on 03/29 and 03/30, now resolved --monitor bleeding by counting pads --should f/u with her [employer] provider after BMT Premature menopause 12/26/2015 Postmenopausal atrophic vaginitis 12/26/2015 Dyspareunia 12/26/2015 documented as of this encounter (statuses as of 07/25/2022) [facility] History of Past illness Narrative* Problem Noted Date Resolved Date Menorrhagia with regular cycle 03/15/2017 1 03/03/2017 Overview: Added automatically from request for surgery [id number] History of pulmonary embolism 04/25/2016 Neoplastic (malignant) related fatigue 7 01/01/2018 Hidradenitis suppurativa 01/17/2016 018 Vitamin D deficiency 06/09/2015 12/26/2015 HyperCKemia 05/06/2015 12/26/2015 Elevated aldolase level 05/06/2015 12/26/19 16 Chronic pain of both knees 05/06/201512/25 Pain in joint, multiple sites 05/06/2015 Myalgia 05/06/2015 12/26/2015 Fatigue 05/06/2015 12/26/2015 Malaise and fatigue 03/24/2015 12/26/2015 Gastroesophageal reflux disease without esophagi tis 02/23/2015 12/26/2015 Laryngitis 02/23/2015 12/26/2015 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 10/28/2014 12/26/2015 Papanicolaou smear of cervix with low grade squamous intraepithelial lesion (LGSIL) 10/24/2014 12/25/2019 Pain in joint, ankle and foot 09/27/2014 ASCUS favor dysplasia 09/18/2014 12/26/2015 Visit for gynecologic examination 09/07/2014 12/26/2015 Postmenopausal HRT (hormone replacement therapy) 08/18/2014 12/26/2015 Overview: offered Gait abnormality 07/22/2014 12/26/2015 Weakness of both legs 07/22/2014 12/26/2015 Sprain of ankle, left 06/29/2014 12/26/2015 PCP (pneumocystis jiroveci pneumonia) 06/03/2014 12/26/2015 Acute respiratory failure with hypoxemia 015 12/26/2015 Overview: Increased O2 requirement overnight (2L to 5L) - bronchoscopy with BAL/TBLB tomorrow 8 AM. - NPO from midnight - hold tonight dose of lovenox. Radiation pneumonitis 05/11/2014 12/26/2015 Overview: 40 mg prednisone daily Immunodeficiency with predominant T-cell defect, unspecified 03/11/2014 12/26/2015 Urgency of micturation 03/04/2014 6 Urinary frequency 03/04/2014 12/26/2015 Arm pain, left 07/06/2013 12/26/2015 Back pain without radiation 07/06/201308/2015 Abnormal finding on imaging 07/06/201308/2015 Elevated sed rate 07/06/2013 12/26/2015 Hyperpigmentation of skin 03/31/20132015 Overview: --resolved --bilateral breast tissue and axilla --order mycolog cream --monitor Diarrhea 03/31/2013 12/26/2015 Overview: - c diff pending Mucositis (ulcerative) due to antineoplastic the rapy 03/24/2013 12/26/2015 Overview: --improved --oxy prn --mouth care measures. Reflux 03/23/2013 12/26/2015 Overview: --improved with protonix Elevated LFTs 03/22/2013 12/26/2015 Overview: --increased AST ALT during chemo, resolved. Excess fluid volume 03/21/2013 12/26/2015 Overview: --diuresis as needed --continue to monitor volume status CINV (chemotherapy-induced nausea and vomiting) 03/17/2013 10/13/2015 Overview: --Resolved --Ativan PRN (none used) Peripheral neuropathy 03/16/2013 12/26/2015 Overview: --gabapentin 300mg TID with increased symptoms, bedtime dose of gabapentin increased to 600mg with improvement reported, continue DVT prophylaxis 03/16/2013 12/26/2015 Overview: --platelet count decreasing, d/c heparin SQ --encourage ambulation Insomnia 03/16/2013 12/26/2015 Overview: --ambien PRN at HS, with relief, but with vivid dreams, jeffien d/c --restoril at 30mg PRN at HS with relief, continue Chronic chest pain 03/16/2013 12/26/2015 Overview: --now resolved --since Hodgkin lymphoma diagnosis per patient Hospital discharge follow-up 03/16/201308/2015 Overview: --Patient will need to follow up with Dr. Unger after discharge Tachycardia 03/16/2013 12/26/2015 Overview: --patient taking atenolol 100mg BID at home, now BP running lower, decreased atenolol dose to 50mg BID with hypotension. --increase to 75mg BID, d/t tachycardia(HRs >110 while afebrile), HR now controlled, continue --monitor closely Electrolyte and fluid disorders not elsewhere cl assified 02/16/2013 12/26/2015 DISPOSITION AND FOLLOW-UP 10/27/20122015 Overview: 32 yo female from [place], [place]. Family involved with care, at bedside. plan to discharge patient home - will arrange with case management for post op care as needed - follow up in OPD in 7-10 days Post-op pain 10/27/2012 12/26/2015 Overview: currently well controlled with [employer] REPRESENTATIVE. will start PO pain meds today 10/27. tolerating percocet, pain relatively well controlled. Hodgkin's disease with nodular sclerosis 013 12/26/2015 Overview: Oncology history (per Dr. 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 Hodgkin's disease, unspecified 02/05/2012 0 05/11/2014 Vaginal bleeding 12/26/2015 Overview: --likely from thrombocytopenia. No menses in prior 8 months. Scant amount reported on 03/29 and 03/30, now resolved --monitor bleeding by counting pads --should f/u with her [employer] [employer] provider after BMT Premature menopause 12/26/2015 Postmenopausal atrophic vaginitis 12/26/2015 Dyspareunia 12/26/2015 documented as of this encounter (statuses as of 08/02/2022) [facility] History of Past illness Narrative* Problem Noted Date Resolved Date Menorrhagia with regular cycle 03/15/2017 1 03/03/2017 Overview: Added automatically from request for surgery [id number] History of pulmonary embolism 04/25/2016 Neoplastic (malignant) related fatigue 7 01/01/2018 Hidradenitis suppurativa 01/17/2016 018 Vitamin D deficiency 06/09/2015 12/26/2015 HyperCKemia 05/06/2015 12/26/2015 Elevated aldolase level 05/06/2015 12/26/19 16 Chronic pain of both knees 05/06/201512/25 Pain in joint, multiple sites 05/06/2015 Myalgia 05/06/2015 12/26/2015 Fatigue 05/06/2015 12/26/2015 Malaise and fatigue 03/24/2015 12/26/2015 Gastroesophageal reflux disease without esophagi tis 02/23/2015 12/26/2015 Laryngitis 02/23/2015 12/26/2015 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 10/28/2014 12/26/2015 Papanicolaou smear of cervix with low grade squamous intraepithelial lesion (LGSIL) 10/24/2014 12/25/2019 Pain in joint, ankle and foot 09/27/2014 ASCUS favor dysplasia 09/18/2014 12/26/2015 Visit for gynecologic examination 09/07/2014 12/26/2015 Postmenopausal HRT (hormone replacement therapy) 08/18/2014 12/26/2015 Overview: offered Gait abnormality 07/22/2014 12/26/2015 Weakness of both legs 07/22/2014 12/26/2015 Sprain of ankle, left 06/29/2014 12/26/2015 PCP (pneumocystis jiroveci pneumonia) 06/03/2014 12/26/2015 Acute respiratory failure with hypoxemia 015 12/26/2015 Overview: Increased O2 requirement overnight (2L to 5L) - bronchoscopy with BAL/TBLB tomorrow 8 AM. - NPO from midnight - hold tonight dose of lovenox. Radiation pneumonitis 05/11/2014 12/26/2015 Overview: 40 mg prednisone daily Immunodeficiency with predominant T-cell defect, unspecified 03/11/2014 12/26/2015 Urgency of micturation 03/04/2014 6 Urinary frequency 03/04/2014 12/26/2015 Arm pain, left 07/06/2013 12/26/2015 Back pain without radiation 07/06/201308/2015 Abnormal finding on imaging 07/06/201308/2015 Elevated sed rate 07/06/2013 12/26/2015 Hyperpigmentation of skin 03/31/20132015 Overview: --resolved --bilateral breast tissue and axilla --order mycolog cream --monitor Diarrhea 03/31/2013 12/26/2015 Overview: - c diff pending Mucositis (ulcerative) due to antineoplastic the rapy 03/24/2013 12/26/2015 Overview: --improved --oxy prn --mouth care measures. Reflux 03/23/2013 12/26/2015 Overview: --improved with protonix Elevated LFTs 03/22/2013 12/26/2015 Overview: --increased AST ALT during chemo, resolved. Excess fluid volume 03/21/2013 12/26/2015 Overview: --diuresis as needed --continue to monitor volume status CINV (chemotherapy-induced nausea and vomiting) 03/17/2013 10/13/2015 Overview: --Resolved --Ativan PRN (none used) Peripheral neuropathy 03/16/2013 12/26/2015 Overview: --gabapentin 300mg TID with increased symptoms, bedtime dose of gabapentin increased to 600mg with improvement reported, continue DVT prophylaxis 03/16/2013 12/26/2015 Overview: --platelet count decreasing, d/c heparin SQ --encourage ambulation Insomnia 03/16/2013 12/26/2015 Overview: --ambien PRN at HS, with relief, but with vivid dreams, ambien d/c --restoril at 30mg PRN at HS with relief, continue Chronic chest pain 03/16/2013 12/26/2015 Overview: --now resolved --since Hodgkin lymphoma diagnosis per patient Hospital discharge follow-up 03/16/201308/2015 Overview: --Patient will need to follow up with Dr. Unger after discharge Tachycardia 03/16/2013 12/26/2015 Overview: --patient taking atenolol 100mg BID at home, now BP running lower, decreased atenolol dose to 50mg BID with hypotension. --increase to 75mg BID, d/t tachycardia(HRs >110 while afebrile), HR now controlled, continue --monitor closely Electrolyte and fluid disorders not elsewhere cl assified 02/16/2013 12/26/2015 DISPOSITION AND FOLLOW-UP 10/27/20122015 Overview: 32 yo female from [place], [place]. Family involved with care, at bedside. plan to discharge patient home - will arrange with case management for post op care as needed - follow up in OPD in 7-10 days Post-op pain 10/27/2012 12/26/2015 Overview: currently well controlled with [employer] REPRESENTATIVE. will start PO pain meds today 10/27. tolerating percocet, pain relatively well controlled. Hodgkin's disease with nodular sclerosis 013 12/26/2015 Overview: Oncology history (per Dr. 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 Hodgkin's disease, unspecified 02/05/2012 0 05/11/2014 Vaginal bleeding 12/26/2015 Overview: --likely from thrombocytopenia. No menses in prior 8 months. Scant amount reported on 03/29 and 03/30, now resolved --monitor bleeding by counting pads --should f/u with her [employer] provider after BMT Premature menopause 12/26/2015 Postmenopausal atrophic vaginitis 12/26/2015 Dyspareunia 12/26/2015 documented as of this encounter (statuses as of 08/05/2022) [facility] History of Past illness Narrative* Problem Noted Date Resolved Date Menorrhagia with regular cycle 03/15/2017 1 03/03/2017 Overview: Added automatically from request for surgery [id number] History of pulmonary embolism 04/25/2016 Neoplastic (malignant) related fatigue 7 01/01/2018 Hidradenitis suppurativa 01/17/2016 018 Vitamin D deficiency 06/09/2015 12/26/2015 HyperCKemia 05/06/2015 12/26/2015 Elevated aldolase level 05/06/2015 12/26/19 16 Chronic pain of both knees 05/06/201512/25 Pain in joint, multiple sites 05/06/2015 Myalgia 05/06/2015 12/26/2015 Fatigue 05/06/2015 12/26/2015 Malaise and fatigue 03/24/2015 12/26/2015 Gastroesophageal reflux disease without esophagi tis 02/23/2015 12/26/2015 Laryngitis 02/23/2015 12/26/2015 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 10/28/2014 12/26/2015 Papanicolaou smear of cervix with low grade squamous intraepithelial lesion (LGSIL) 10/24/2014 12/25/2019 Pain in joint, ankle and foot 09/27/2014 ASCUS favor dysplasia 09/18/2014 12/26/2015 Visit for gynecologic examination 09/07/2014 12/26/2015 Postmenopausal HRT (hormone replacement therapy) 08/18/2014 12/26/2015 Overview: offered Gait abnormality 07/22/2014 12/26/2015 Weakness of both legs 07/22/2014 12/26/2015 Sprain of ankle, left 06/29/2014 12/26/2015 PCP (pneumocystis jiroveci pneumonia) 06/03/2014 12/26/2015 Acute respiratory failure with hypoxemia 015 12/26/2015 Overview: Increased O2 requirement overnight (2L to 5L) - bronchoscopy with BAL/TBLB tomorrow 8 AM. - NPO from midnight - hold tonight dose of lovenox. Radiation pneumonitis 05/11/2014 12/26/2015 Overview: 40 mg prednisone daily Immunodeficiency with predominant T-cell defect, unspecified 03/11/2014 12/26/2015 Urgency of micturation 03/04/2014 6 Urinary frequency 03/04/2014 12/26/2015 Arm pain, left 07/06/2013 12/26/2015 Back pain without radiation 07/06/201308/2015 Abnormal finding on imaging 07/06/201308/2015 Elevated sed rate 07/06/2013 12/26/2015 Hyperpigmentation of skin 03/31/20132015 Overview: --resolved --bilateral breast tissue and axilla --order mycolog cream --monitor Diarrhea 03/31/2013 12/26/2015 Overview: - c diff pending Mucositis (ulcerative) due to antineoplastic the rapy 03/24/2013 12/26/2015 Overview: --improved --oxy prn --mouth care measures. Reflux 03/23/2013 12/26/2015 Overview: --improved with protonix Elevated LFTs 03/22/2013 12/26/2015 Overview: --increased AST ALT during chemo, resolved. Excess fluid volume 03/21/2013 12/26/2015 Overview: --diuresis as needed --continue to monitor volume status CINV (chemotherapy-induced nausea and vomiting) 03/17/2013 10/13/2015 Overview: --Resolved --Ativan PRN (none used) Peripheral neuropathy 03/16/2013 12/26/2015 Overview: --gabapentin 300mg TID with increased symptoms, bedtime dose of gabapentin increased to 600mg with improvement reported, continue DVT prophylaxis 03/16/2013 12/26/2015 Overview: --platelet count decreasing, d/c heparin SQ --encourage ambulation Insomnia 03/16/2013 12/26/2015 Overview: --ambien PRN at HS, with relief, but with vivid dreams, ambien d/c --restoril at 30mg PRN at HS with relief, continue Chronic chest pain 03/16/2013 12/26/2015 Overview: --now resolved --since Hodgkin lymphoma diagnosis per patient Hospital discharge follow-up 03/16/201308/2015 Overview: --Patient will need to follow up with Dr. Unger after discharge Tachycardia 03/16/2013 12/26/2015 Overview: --patient taking atenolol 100mg BID at home, now BP running lower, decreased atenolol dose to 50mg BID with hypotension. --increase to 75mg BID, d/t tachycardia(HRs >110 while afebrile), HR now controlled, continue --monitor closely Electrolyte and fluid disorders not elsewhere cl assified 02/16/2013 12/26/2015 DISPOSITION AND FOLLOW-UP 10/27/20122015 Overview: 32 yo female from [place], [place]. Family involved with care, at bedside. plan to discharge patient home - will arrange with case management for post op care as needed - follow up in OPD in 7-10 days Post-op pain 10/27/2012 12/26/2015 Overview: currently well controlled with [employer] REPRESENTATIVE. will start PO pain meds today 10/27. tolerating percocet, pain relatively well controlled. Hodgkin's disease with nodular sclerosis 013 12/26/2015 Overview: Oncology history (per Dr. 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 Hodgkin's disease, unspecified 02/05/2012 0 05/11/2014 Vaginal bleeding 12/26/2015 Overview: --likely from thrombocytopenia. No menses in prior 8 months. Scant amount reported on 03/29 and 03/30, now resolved --monitor bleeding by counting pads --should f/u with her [employer] provider after BMT Premature menopause 12/26/2015 Postmenopausal atrophic vaginitis 12/26/2015 Dyspareunia 12/26/2015 documented as of this encounter (statuses as of 08/10/2022) [facility] History of Past illness Narrative* Problem Noted Date Resolved Date Menorrhagia with regular cycle 03/15/2017 1 03/03/2017 Overview: Added automatically from request for surgery [id number] History of pulmonary embolism 04/25/2016 Neoplastic (malignant) related fatigue 7 01/01/2018 Hidradenitis suppurativa 01/17/2016 018 Vitamin D deficiency 06/09/2015 12/26/2015 HyperCKemia 05/06/2015 12/26/2015 Elevated aldolase level 05/06/2015 12/26/19 16 Chronic pain of both knees 05/06/201512/25 Pain in joint, multiple sites 05/06/2015 Myalgia 05/06/2015 12/26/2015 Fatigue 05/06/2015 12/26/2015 Malaise and fatigue 03/24/2015 12/26/2015 Gastroesophageal reflux disease without esophagi tis 02/23/2015 12/26/2015 Laryngitis 02/23/2015 12/26/2015 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 10/28/2014 12/26/2015 Papanicolaou smear of cervix with low grade squamous intraepithelial lesion (LGSIL) 10/24/2014 12/25/2019 Pain in joint, ankle and foot 09/27/2014 ASCUS favor dysplasia 09/18/2014 12/26/2015 Visit for gynecologic examination 09/07/2014 12/26/2015 Postmenopausal HRT (hormone replacement therapy) 08/18/2014 12/26/2015 Overview: offered Gait abnormality 07/22/2014 12/26/2015 Weakness of both legs 07/22/2014 12/26/2015 Sprain of ankle, left 06/29/2014 12/26/2015 PCP (pneumocystis jiroveci pneumonia) 06/03/2014 12/26/2015 Acute respiratory failure with hypoxemia 015 12/26/2015 Overview: Increased O2 requirement overnight (2L to 5L) - bronchoscopy with BAL/TBLB tomorrow 8 AM. - NPO from midnight - hold tonight dose of lovenox. Radiation pneumonitis 05/11/2014 12/26/2015 Overview: 40 mg prednisone daily Immunodeficiency with predominant T-cell defect, unspecified 03/11/2014 12/26/2015 Urgency of micturation 03/04/2014 6 Urinary frequency 03/04/2014 12/26/2015 Arm pain, left 07/06/2013 12/26/2015 Back pain without radiation 07/06/201308/2015 Abnormal finding on imaging 07/06/201308/2015 Elevated sed rate 07/06/2013 12/26/2015 Hyperpigmentation of skin 03/31/20132015 Overview: --resolved --bilateral breast tissue and axilla --order mycolog cream --monitor Diarrhea 03/31/2013 12/26/2015 Overview: - c diff pending Mucositis (ulcerative) due to antineoplastic the rapy 03/24/2013 12/26/2015 Overview: --improved --oxy prn --mouth care measures. Reflux 03/23/2013 12/26/2015 Overview: --improved with protonix Elevated LFTs 03/22/2013 12/26/2015 Overview: --increased AST ALT during chemo, resolved. Excess fluid volume 03/21/2013 12/26/2015 Overview: --diuresis as needed --continue to monitor volume status CINV (chemotherapy-induced nausea and vomiting) 03/17/2013 10/13/2015 Overview: --Resolved --Ativan PRN (none used) Peripheral neuropathy 03/16/2013 12/26/2015 Overview: --gabapentin 300mg TID with increased symptoms, bedtime dose of gabapentin increased to 600mg with improvement reported, continue DVT prophylaxis 03/16/2013 12/26/2015 Overview: --platelet count decreasing, d/c heparin SQ --encourage ambulation Insomnia 03/16/2013 12/26/2015 Overview: --ambien PRN at HS, with relief, but with vivid dreams, ambien d/c --restoril at 30mg PRN at HS with relief, continue Chronic chest pain 03/16/2013 12/26/2015 Overview: --now resolved --since Hodgkin lymphoma diagnosis per patient Hospital discharge follow-up 03/16/201308/2015 Overview: --Patient will need to follow up with Dr. Unger after discharge Tachycardia 03/16/2013 12/26/2015 Overview: --patient taking atenolol 100mg BID at home, now BP running lower, decreased atenolol dose to 50mg BID with hypotension. --increase to 75mg BID, d/t tachycardia(HRs >110 while afebrile), HR now controlled, continue --monitor closely Electrolyte and fluid disorders not elsewhere cl assified 02/16/2013 12/26/2015 DISPOSITION AND FOLLOW-UP 10/27/20122015 Overview: 32 yo female from [place], [place]. Family involved with care, at bedside. plan to discharge patient home - will arrange with case management for post op care as needed - follow up in OPD in 7-10 days Post-op pain 10/27/2012 12/26/2015 Overview: currently well controlled with [employer] REPRESENTATIVE. will start PO pain meds today 10/27. tolerating percocet, pain relatively well controlled. Hodgkin's disease with nodular sclerosis 013 12/26/2015 Overview: Oncology history (per Dr. 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 Hodgkin's disease, unspecified 02/05/2012 0 05/11/2014 Vaginal bleeding 12/26/2015 Overview: --likely from thrombocytopenia. No menses in prior 8 months. Scant amount reported on 03/29 and 03/30, now resolved --monitor bleeding by counting pads --should f/u with her [employer] provider after BMT Premature menopause 12/26/2015 Postmenopausal atrophic vaginitis 12/26/2015 Dyspareunia 12/26/2015 documented as of this encounter (statuses as of 08/10/2022) [facility] History of Past illness Narrative* Problem Noted Date Resolved Date Menorrhagia with regular cycle 03/15/2017 1 03/03/2017 Overview: Added automatically from request for surgery [id number] History of pulmonary embolism 04/25/2016 Neoplastic (malignant) related fatigue 7 01/01/2018 Hidradenitis suppurativa 01/17/2016 018 Vitamin D deficiency 06/09/2015 12/26/2015 HyperCKemia 05/06/2015 12/26/2015 Elevated aldolase level 05/06/2015 12/26/19 16 Chronic pain of both knees 05/06/201512/25 Pain in joint, multiple sites 05/06/2015 Myalgia 05/06/2015 12/26/2015 Fatigue 05/06/2015 12/26/2015 Malaise and fatigue 03/24/2015 12/26/2015 Gastroesophageal reflux disease without esophagi tis 02/23/2015 12/26/2015 Laryngitis 02/23/2015 12/26/2015 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 10/28/2014 12/26/2015 Papanicolaou smear of cervix with low grade squamous intraepithelial lesion (LGSIL) 10/24/2014 12/25/2019 Pain in joint, ankle and foot 09/27/2014 ASCUS favor dysplasia 09/18/2014 12/26/2015 Visit for gynecologic examination 09/07/2014 12/26/2015 Postmenopausal HRT (hormone replacement therapy) 08/18/2014 12/26/2015 Overview: offered Gait abnormality 07/22/2014 12/26/2015 Weakness of both legs 07/22/2014 12/26/2015 Sprain of ankle, left 06/29/2014 12/26/2015 PCP (pneumocystis jiroveci pneumonia) 06/03/2014 12/26/2015 Acute respiratory failure with hypoxemia 015 12/26/2015 Overview: Increased O2 requirement overnight (2L to 5L) - bronchoscopy with BAL/TBLB tomorrow 8 AM. - NPO from midnight - hold tonight dose of lovenox. Radiation pneumonitis 05/11/2014 12/26/2015 Overview: 40 mg prednisone daily Immunodeficiency with predominant T-cell defect, unspecified 03/11/2014 12/26/2015 Urgency of micturation 03/04/2014 6 Urinary frequency 03/04/2014 12/26/2015 Arm pain, left 07/06/2013 12/26/2015 Back pain without radiation 07/06/201308/2015 Abnormal finding on imaging 07/06/201308/2015 Elevated sed rate 07/06/2013 12/26/2015 Hyperpigmentation of skin 03/31/20132015 Overview: --resolved --bilateral breast tissue and axilla --order mycolog cream --monitor Diarrhea 03/31/2013 12/26/2015 Overview: - c diff pending Mucositis (ulcerative) due to antineoplastic the rapy 03/24/2013 12/26/2015 Overview: --improved --oxy prn --mouth care measures. Reflux 03/23/2013 12/26/2015 Overview: --improved with protonix Elevated LFTs 03/22/2013 12/26/2015 Overview: --increased AST ALT during chemo, resolved. Excess fluid volume 03/21/2013 12/26/2015 Overview: --diuresis as needed --continue to monitor volume status CINV (chemotherapy-induced nausea and vomiting) 03/17/2013 10/13/2015 Overview: --Resolved --Ativan PRN (none used) Peripheral neuropathy 03/16/2013 12/26/2015 Overview: --gabapentin 300mg TID with increased symptoms, bedtime dose of gabapentin increased to 600mg with improvement reported, continue DVT prophylaxis 03/16/2013 12/26/2015 Overview: --platelet count decreasing, d/c heparin SQ --encourage ambulation Insomnia 03/16/2013 12/26/2015 Overview: --ambien PRN at HS, with relief, but with vivid dreams, ambien d/c --restoril at 30mg PRN at HS with relief, continue Chronic chest pain 03/16/2013 12/26/2015 Overview: --now resolved --since Hodgkin lymphoma diagnosis per patient Hospital discharge follow-up 03/16/201308/2015 Overview: --Patient will need to follow up with Dr. Unger after discharge Tachycardia 03/16/2013 12/26/2015 Overview: --patient taking atenolol 100mg BID at home, now BP running lower, decreased atenolol dose to 50mg BID with hypotension. --increase to 75mg BID, d/t tachycardia(HRs >110 while afebrile), HR now controlled, continue --monitor closely Electrolyte and fluid disorders not elsewhere cl assified 02/16/2013 12/26/2015 DISPOSITION AND FOLLOW-UP 10/27/20122015 Overview: 32 yo female from [place], [place]. Family involved with care, at bedside. plan to discharge patient home - will arrange with case management for post op care as needed - follow up in OPD in 7-10 days Post-op pain 10/27/2012 12/26/2015 Overview: currently well controlled with [employer] REPRESENTATIVE. will start PO pain meds today 10/27. tolerating percocet, pain relatively well controlled. Hodgkin's disease with nodular sclerosis 013 12/26/2015 Overview: Oncology history (per Dr. 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 Hodgkin's disease, unspecified 02/05/2012 0 05/11/2014 Vaginal bleeding 12/26/2015 Overview: --likely from thrombocytopenia. No menses in prior 8 months. Scant amount reported on 03/29 and 03/30, now resolved --monitor bleeding by counting pads --should f/u with her [employer] provider after BMT Premature menopause 12/26/2015 Postmenopausal atrophic vaginitis 12/26/2015 Dyspareunia 12/26/2015 documented as of this encounter (statuses as of 08/17/2022) [facility] History of Past illness Narrative* Problem Noted Date Resolved Date Menorrhagia with regular cycle 03/15/2017 1 03/03/2017 Overview: Added automatically from request for surgery [id number] History of pulmonary embolism 04/25/2016 Neoplastic (malignant) related fatigue 7 01/01/2018 Hidradenitis suppurativa 01/17/2016 018 Vitamin D deficiency 06/09/2015 12/26/2015 HyperCKemia 05/06/2015 12/26/2015 Elevated aldolase level 05/06/2015 12/26/19 16 Chronic pain of both knees 05/06/201512/25 Pain in joint, multiple sites 05/06/2015 Myalgia 05/06/2015 12/26/2015 Fatigue 05/06/2015 12/26/2015 Malaise and fatigue 03/24/2015 12/26/2015 Gastroesophageal reflux disease without esophagi tis 02/23/2015 12/26/2015 Laryngitis 02/23/2015 12/26/2015 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 10/28/2014 12/26/2015 Papanicolaou smear of cervix with low grade squamous intraepithelial lesion (LGSIL) 10/24/2014 12/25/2019 Pain in joint, ankle and foot 09/27/2014 ASCUS favor dysplasia 09/18/2014 12/26/2015 Visit for gynecologic examination 09/07/2014 12/26/2015 Postmenopausal HRT (hormone replacement therapy) 08/18/2014 12/26/2015 Overview: offered Gait abnormality 07/22/2014 12/26/2015 Weakness of both legs 07/22/2014 12/26/2015 Sprain of ankle, left 06/29/2014 12/26/2015 PCP (pneumocystis jiroveci pneumonia) 06/03/2014 12/26/2015 Acute respiratory failure with hypoxemia 015 12/26/2015 Overview: Increased O2 requirement overnight (2L to 5L) - bronchoscopy with BAL/TBLB tomorrow 8 AM. - NPO from midnight - hold tonight dose of lovenox. Radiation pneumonitis 05/11/2014 12/26/2015 Overview: 40 mg prednisone daily Immunodeficiency with predominant T-cell defect, unspecified 03/11/2014 12/26/2015 Urgency of micturation 03/04/2014 6 Urinary frequency 03/04/2014 12/26/2015 Arm pain, left 07/06/2013 12/26/2015 Back pain without radiation 07/06/201308/2015 Abnormal finding on imaging 07/06/201308/2015 Elevated sed rate 07/06/2013 12/26/2015 Hyperpigmentation of skin 03/31/20132015 Overview: --resolved --bilateral breast tissue and axilla --order mycolog cream --monitor Diarrhea 03/31/2013 12/26/2015 Overview: - c diff pending Mucositis (ulcerative) due to antineoplastic the rapy 03/24/2013 12/26/2015 Overview: --improved --oxy prn --mouth care measures. Reflux 03/23/2013 12/26/2015 Overview: --improved with protonix Elevated LFTs 03/22/2013 12/26/2015 Overview: --increased AST ALT during chemo, resolved. Excess fluid volume 03/21/2013 12/26/2015 Overview: --diuresis as needed --continue to monitor volume status CINV (chemotherapy-induced nausea and vomiting) 03/17/2013 10/13/2015 Overview: --Resolved --Ativan PRN (none used) Peripheral neuropathy 03/16/2013 12/26/2015 Overview: --gabapentin 300mg TID with increased symptoms, bedtime dose of gabapentin increased to 600mg with improvement reported, continue DVT prophylaxis 03/16/2013 12/26/2015 Overview: --platelet count decreasing, d/c heparin SQ --encourage ambulation Insomnia 03/16/2013 12/26/2015 Overview: --ambien PRN at HS, with relief, but with vivid dreams, ambien d/c --restoril at 30mg PRN at HS with relief, continue Chronic chest pain 03/16/2013 12/26/2015 Overview: --now resolved --since Hodgkin lymphoma diagnosis per patient Hospital discharge follow-up 03/16/201308/2015 Overview: --Patient will need to follow up with Dr. Unger after discharge Tachycardia 03/16/2013 12/26/2015 Overview: --patient taking atenolol 100mg BID at home, now BP running lower, decreased atenolol dose to 50mg BID with hypotension. --increase to 75mg BID, d/t tachycardia(HRs >110 while afebrile), HR now controlled, continue --monitor closely Electrolyte and fluid disorders not elsewhere cl assified 02/16/2013 12/26/2015 DISPOSITION AND FOLLOW-UP 10/27/20122015 Overview: 32 yo female from [place], [place]. Family involved with care, at bedside. plan to discharge patient home - will arrange with case management for post op care as needed - follow up in OPD in 7-10 days Post-op pain 10/27/2012 12/26/2015 Overview: currently well controlled with [employer] REPRESENTATIVE. will start PO pain meds today 10/27. tolerating percocet, pain relatively well controlled. Hodgkin's disease with nodular sclerosis 013 12/26/2015 Overview: Oncology history (per Dr. 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 Hodgkin's disease, unspecified 02/05/2012 0 05/11/2014 Vaginal bleeding 12/26/2015 Overview: --likely from thrombocytopenia. No menses in prior 8 months. Scant amount reported on 03/29 and 03/30, now resolved --monitor bleeding by counting pads --should f/u with her [employer] provider after BMT Premature menopause 12/26/2015 Postmenopausal atrophic vaginitis 12/26/2015 Dyspareunia 12/26/2015 documented as of this encounter (statuses as of 08/23/2022) [facility] History of Past illness Narrative* Problem Noted Date Diagnosed Date Resolved Date Menorrhagia with regular cycle 03/15/2017 01/01/2018 Overview: Added automatically from request for surgery [id number] History of pulmonary embolism 04/25/2016 01/01/2018 Neoplastic (malignant) related fatigue 04/25/2016 01/01/2018 Hidradenitis suppurativa 01/17/2016 Vitamin D deficiency 06/09/2015 016 HyperCKemia 05/06/2015 12/26/2015 Elevated aldolase level 05/06/201508/2015 Chronic pain of both knees 05/06/2015 1 02/24/2015 Pain in joint, multiple sites 05/06/2015 12/26/2015 Myalgia 05/06/2015 12/26/2015 Fatigue 05/06/2015 12/26/2015 Malaise and fatigue 03/24/2015 12/26/19 16 Gastroesophageal reflux dise ase without esophagitis 02/23/2015 12/26/2015 Laryngitis 02/23/2015 12/26/2015 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 10/28/2014 12/26/2015 Papanicolaou smear of cervix with low grade squamous intraepithelial lesion (LGSIL) 10/24/2014 12/25/2019 Pain in joint, ankle and foot 09/27/2014 12/26/2015 ASCUS favor dysplasia 09/18/20142015 Visit for gynecologic examination 09/07/2014 12/26/2015 Postmenopausal HRT (hormone replacement therapy) 08/18/2014 12/26/2015 Overview: offered Gait abnormality 07/22/2014 12/26/2015 Weakness of both legs 07/22/20142015 Sprain of ankle, left 06/29/20142015 PCP (pneumocystis jiroveci pneumonia) 06/03/2014 12/26/2015 Acute respiratory failure with hypoxemia 05/11/2014 12/26/2015 Overview: Increased O2 requirement overnight (2L to 5L) - bronchoscopy with BAL/TBLB tomorrow 8 AM. - NPO from midnight - hold tonight dose of lovenox. Radiation pneumonitis 05/11/20142015 Overview: 40 mg prednisone daily Immunodeficiency with predom inant T-cell defect, unspecified 03/11/2014 12/26/2015 Urgency of micturation 03/04/201412/25 Urinary frequency 03/04/2014 12/26/2015 Arm pain, left 07/06/2013 12/26/2015 Back pain without radiation 07/06/2013 12/26/2015 Abnormal finding on imaging 07/06/2013 12/26/2015 Elevated sed rate 07/06/2013 12/26/2015 Hyperpigmentation of skin 03/31/2013 Overview: --resolved --bilateral breast tissue and axilla --order mycolog cream --monitor Diarrhea 03/31/2013 12/26/2015 Overview: - c diff pending Mucositis (ulcerative) due t o antineoplastic therapy 03/24/2013 12/26/2015 Overview: --improved --oxy prn --mouth care measures. Reflux 03/23/2013 12/26/2015 Overview: --improved with protonix Elevated LFTs 03/22/2013 12/26/2015 Overview: --increased AST ALT during chemo, resolved. Excess fluid volume 03/21/2013 12/26/19 16 Overview: --diuresis as needed --continue to monitor volume status CINV (chemotherapy-induced n ausea and vomiting) 03/17/2013 10/13/2015 Overview: --Resolved --Ativan PRN (none used) Peripheral neuropathy 03/16/20132015 Overview: --gabapentin 300mg TID with increased symptoms, bedtime dose of gabapentin increased to 600mg with improvement reported, continue DVT prophylaxis 03/16/2013 12/26/2015 Overview: --platelet count decreasing, d/c heparin SQ --encourage ambulation Insomnia 03/16/2013 12/26/2015 Overview: --ambien PRN at HS, with relief, but with vivid dreams, ambien d/c --restoril at 30mg PRN at HS with relief, continue Chronic chest pain 03/16/2013 6 Overview: --now resolved --since Hodgkin lymphoma diagnosis per patient Hospital discharge follow-up 03/16/2013 12/26/2015 Overview: --Patient will need to follow up with Dr. Unger after discharge Tachycardia 03/16/2013 12/26/2015 Overview: --patient taking atenolol 100mg BID at home, now BP running lower, decreased atenolol dose to 50mg BID with hypotension. --increase to 75mg BID, d/t tachycardia(HRs >110 while afebrile), HR now controlled, continue --monitor closely Electrolyte and fluid disord ers not elsewhere classified 02/16/2013 12/26/2015 DISPOSITION AND FOLLOW-UP 10/27/2012 Overview: 32 yo female from [place], [place]. Family involved with care, at bedside. plan to discharge patient home - will arrange with case management for post op care as needed - follow up in OPD in 7-10 days Post-op pain 10/27/2012 12/26/2015 Overview: currently well controlled with [employer] REPRESENT[employer]IVE. will start PO pain meds today 10/27. tolerating percocet, pain relatively well controlled. Hodgkin's disease with nodular sclerosis 05/27/2012 12/26/2015 Overview: Oncology history (per Dr. 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 Hodgkin's disease, unspecified 02/05/2012 05/11/2014 Vaginal bleeding 12/26/2015 Overview: --likely from thrombocytopenia. No menses in prior 8 months. Scant amount reported on 03/29 and 03/30, now resolved --monitor bleeding by counting pads --should f/u with her [employer] provider after BMT Premature menopause 12/26/19 16 Postmenopausal atrophic vaginitis 12/26/2015 Dyspareunia 12/26/2015 documented as of this encounter (statuses as of 08/27/2022) [facility] History of Past illness Narrative* Problem Noted Date Diagnosed Date Resolved Date Menorrhagia with regular cycle 03/15/2017 01/01/2018 Overview: Added automatically from request for surgery [id number] History of pulmonary embolism 04/25/2016 01/01/2018 Neoplastic (malignant) related fatigue 04/25/2016 01/01/2018 Hidradenitis suppurativa 01/17/2016 Vitamin D deficiency 06/09/2015 016 HyperCKemia 05/06/2015 12/26/2015 Elevated aldolase level 05/06/201508/2015 Chronic pain of both knees 05/06/2015 1 02/24/2015 Pain in joint, multiple sites 05/06/2015 12/26/2015 Myalgia 05/06/2015 12/26/2015 Fatigue 05/06/2015 12/26/2015 Malaise and fatigue 03/24/2015 12/26/19 16 Gastroesophageal reflux dise ase without esophagitis 02/23/2015 12/26/2015 Laryngitis 02/23/2015 12/26/2015 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 10/28/2014 12/26/2015 Papanicolaou smear of cervix with low grade squamous intraepithelial lesion (LGSIL) 10/24/2014 12/25/2019 Pain in joint, ankle and foot 09/27/2014 12/26/2015 ASCUS favor dysplasia 09/18/20142015 Visit for gynecologic examination 09/07/2014 12/26/2015 Postmenopausal HRT (hormone replacement therapy) 08/18/2014 12/26/2015 Overview: offered Gait abnormality 07/22/2014 12/26/2015 Weakness of both legs 07/22/20142015 Sprain of ankle, left 06/29/20142015 PCP (pneumocystis jiroveci pneumonia) 06/03/2014 12/26/2015 Acute respiratory failure with hypoxemia 05/11/2014 12/26/2015 Overview: Increased O2 requirement overnight (2L to 5L) - bronchoscopy with BAL/TBLB tomorrow 8 AM. - NPO from midnight - hold tonight dose of lovenox. Radiation pneumonitis 05/11/20142015 Overview: 40 mg prednisone daily Immunodeficiency with predom inant T-cell defect, unspecified 03/11/2014 12/26/2015 Urgency of micturation 03/04/201412/25 Urinary frequency 03/04/2014 12/26/2015 Arm pain, left 07/06/2013 12/26/2015 Back pain without radiation 07/06/2013 12/26/2015 Abnormal finding on imaging 07/06/2013 12/26/2015 Elevated sed rate 07/06/2013 12/26/2015 Hyperpigmentation of skin 03/31/2013 Overview: --resolved --bilateral breast tissue and axilla --order mycolog cream --monitor Diarrhea 03/31/2013 12/26/2015 Overview: - c diff pending Mucositis (ulcerative) due t o antineoplastic therapy 03/24/2013 12/26/2015 Overview: --improved --oxy prn --mouth care measures. Reflux 03/23/2013 12/26/2015 Overview: --improved with protonix Elevated LFTs 03/22/2013 12/26/2015 Overview: --increased AST ALT during chemo, resolved. Excess fluid volume 03/21/2013 12/26/19 16 Overview: --diuresis as needed --continue to monitor volume status CINV (chemotherapy-induced n ausea and vomiting) 03/17/2013 10/13/2015 Overview: --Resolved --Ativan PRN (none used) Peripheral neuropathy 03/16/20132015 Overview: --gabapentin 300mg TID with increased symptoms, bedtime dose of gabapentin increased to 600mg with improvement reported, continue DVT prophylaxis 03/16/2013 12/26/2015 Overview: --platelet count decreasing, d/c heparin SQ --encourage ambulation Insomnia 03/16/2013 12/26/2015 Overview: --ambien PRN at HS, with relief, but with vivid dreams, ambien d/c --restoril at 30mg PRN at HS with relief, continue Chronic chest pain 03/16/2013 6 Overview: --now resolved --since Hodgkin lymphoma diagnosis per patient Hospital discharge follow-up 03/16/2013 12/26/2015 Overview: --Patient will need to follow up with Dr. Unger after discharge Tachycardia 03/16/2013 12/26/2015 Overview: --patient taking atenolol 100mg BID at home, now BP running lower, decreased atenolol dose to 50mg BID with hypotension. --increase to 75mg BID, d/t tachycardia(HRs >110 while afebrile), HR now controlled, continue --monitor closely Electrolyte and fluid disord ers not elsewhere classified 02/16/2013 12/26/2015 DISPOSITION AND FOLLOW-UP 10/27/2012 Overview: 32 yo female from [place], [place]. Family involved with care, at bedside. plan to discharge patient home - will arrange with case management for post op care as needed - follow up in OPD in 7-10 days Post-op pain 10/27/2012 12/26/2015 Overview: currently well controlled with [employer] REPRESENT[employer]IVE. will start PO pain meds today 10/27. tolerating percocet, pain relatively well controlled. Hodgkin's disease with nodular sclerosis 05/27/2012 12/26/2015 Overview: Oncology history (per Dr. 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 Hodgkin's disease, unspecified 02/05/2012 05/11/2014 Vaginal bleeding 12/26/2015 Overview: --likely from thrombocytopenia. No menses in prior 8 months. Scant amount reported on 03/29 and 03/30, now resolved --monitor bleeding by counting pads --should f/u with her [employer] provider after BMT Premature menopause 12/26/19 16 Postmenopausal atrophic vaginitis 12/26/2015 Dyspareunia 12/26/2015 documented as of this encounter (statuses as of 08/30/2022) [facility] History of Past illness Narrative* Problem Noted Date Diagnosed Date Resolved Date Menorrhagia with regular cycle 03/15/2017 01/01/2018 Overview: Added automatically from request for surgery [id number] History of pulmonary embolism 04/25/2016 01/01/2018 Neoplastic (malignant) related fatigue 04/25/2016 01/01/2018 Hidradenitis suppurativa 01/17/2016 Vitamin D deficiency 06/09/2015 016 HyperCKemia 05/06/2015 12/26/2015 Elevated aldolase level 05/06/2015 11/0 08/2015 Chronic pain of both knees 05/06/2015 1 02/24/2015 Pain in joint, multiple sites 05/06/2015 12/26/2015 Myalgia 05/06/2015 12/26/2015 Fatigue 05/06/2015 12/26/2015 Malaise and fatigue 03/24/2015 12/26/19 16 Gastroesophageal reflux dise ase without esophagitis 02/23/2015 12/26/2015 Laryngitis 02/23/2015 12/26/2015 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 10/28/2014 12/26/2015 Papanicolaou smear of cervix with low grade squamous intraepithelial lesion (LGSIL) 10/24/2014 12/25/2019 Pain in joint, ankle and foot 09/27/2014 12/26/2015 ASCUS favor dysplasia 09/18/20142015 Visit for gynecologic examination 09/07/2014 12/26/2015 Postmenopausal HRT (hormone replacement therapy) 08/18/2014 12/26/2015 Overview: offered Gait abnormality 07/22/2014 12/26/2015 Weakness of both legs 07/22/20142015 Sprain of ankle, left 06/29/20142015 PCP (pneumocystis jiroveci pneumonia) 06/03/2014 12/26/2015 Acute respiratory failure with hypoxemia 05/11/2014 12/26/2015 Overview: Increased O2 requirement overnight (2L to 5L) - bronchoscopy with BAL/TBLB tomorrow 8 AM. - NPO from midnight - hold tonight dose of lovenox. Radiation pneumonitis 05/11/20142015 Overview: 40 mg prednisone daily Immunodeficiency with predom inant T-cell defect, unspecified 03/11/2014 12/26/2015 Urgency of micturation 03/04/201412/25 Urinary frequency 03/04/2014 12/26/2015 Arm pain, left 07/06/2013 12/26/2015 Back pain without radiation 07/06/2013 12/26/2015 Abnormal finding on imaging 07/06/2013 12/26/2015 Elevated sed rate 07/06/2013 12/26/2015 Hyperpigmentation of skin 03/31/2013 Overview: --resolved --bilateral breast tissue and axilla --order mycolog cream --monitor Diarrhea 03/31/2013 12/26/2015 Overview: - c diff pending Mucositis (ulcerative) due t o antineoplastic therapy 03/24/2013 12/26/2015 Overview: --improved --oxy prn --mouth care measures. Reflux 03/23/2013 12/26/2015 Overview: --improved with protonix Elevated LFTs 03/22/2013 12/26/2015 Overview: --increased AST ALT during chemo, resolved. Excess fluid volume 03/21/2013 12/26/19 16 Overview: --diuresis as needed --continue to monitor volume status CINV (chemotherapy-induced n ausea and vomiting) 03/17/2013 10/13/2015 Overview: --Resolved --Ativan PRN (none used) Peripheral neuropathy 03/16/20132015 Overview: --gabapentin 300mg TID with increased symptoms, bedtime dose of gabapentin increased to 600mg with improvement reported, continue DVT prophylaxis 03/16/2013 12/26/2015 Overview: --platelet count decreasing, d/c heparin SQ --encourage ambulation Insomnia 03/16/2013 12/26/2015 Overview: --ambien PRN at HS, with relief, but with vivid dreams, ambien d/c --restoril at 30mg PRN at HS with relief, continue Chronic chest pain 03/16/2013 6 Overview: --now resolved --since Hodgkin lymphoma diagnosis per patient Hospital discharge follow-up 03/16/2013 12/26/2015 Overview: --Patient will need to follow up with Dr. Unger after discharge Tachycardia 03/16/2013 12/26/2015 Overview: --patient taking atenolol 100mg BID at home, now BP running lower, decreased atenolol dose to 50mg BID with hypotension. --increase to 75mg BID, d/t tachycardia(HRs >110 while afebrile), HR now controlled, continue --monitor closely Electrolyte and fluid disord ers not elsewhere classified 02/16/2013 12/26/2015 DISPOSITION AND FOLLOW-UP 10/27/2012 Overview: 32 yo female from [place], [place]. Family involved with care, at bedside. plan to discharge patient home - will arrange with case management for post op care as needed - follow up in OPD in 7-10 days Post-op pain 10/27/2012 12/26/2015 Overview: currently well controlled with [employer] REPRESENTATIVE. will start PO pain meds today 10/27. tolerating percocet, pain relatively well controlled. Hodgkin's disease with nodular sclerosis 05/27/2012 12/26/2015 Overview: Oncology history (per Dr. 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 Hodgkin's disease, unspecified 02/05/2012 05/11/2014 Vaginal bleeding 12/26/2015 Overview: --likely from thrombocytopenia. No menses in prior 8 months. Scant amount reported on 03/29 and 03/30, now resolved --monitor bleeding by counting pads --should f/u with her [employer] provider after BMT Premature menopause 12/26/19 16 Postmenopausal atrophic vaginitis 12/26/2015 Dyspareunia 12/26/2015 documented as of this encounter (statuses as of 08/31/2022) [facility] History of Past illness Narrative* Problem Noted Date Diagnosed Date Resolved Date Menorrhagia with regular cycle 03/15/2017 01/01/2018 Overview: Added automatically from request for surgery [id number] History of pulmonary embolism 04/25/2016 01/01/2018 Neoplastic (malignant) related fatigue 04/25/2016 01/01/2018 Hidradenitis suppurativa 01/17/2016 Vitamin D deficiency 06/09/2015 016 HyperCKemia 05/06/2015 12/26/2015 Elevated aldolase level 05/06/201508/2015 Chronic pain of both knees 05/06/2015 1 02/24/2015 Pain in joint, multiple sites 05/06/2015 12/26/2015 Myalgia 05/06/2015 12/26/2015 Fatigue 05/06/2015 12/26/2015 Malaise and fatigue 03/24/2015 12/26/19 16 Gastroesophageal reflux dise ase without esophagitis 02/23/2015 12/26/2015 Laryngitis 02/23/2015 12/26/2015 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 10/28/2014 12/26/2015 Papanicolaou smear of cervix with low grade squamous intraepithelial lesion (LGSIL) 10/24/2014 12/25/2019 Pain in joint, ankle and foot 09/27/2014 12/26/2015 ASCUS favor dysplasia 09/18/20142015 Visit for gynecologic examination 09/07/2014 12/26/2015 Postmenopausal HRT (hormone replacement therapy) 08/18/2014 12/26/2015 Overview: offered Gait abnormality 07/22/2014 12/26/2015 Weakness of both legs 07/22/20142015 Sprain of ankle, left 06/29/20142015 PCP (pneumocystis jiroveci pneumonia) 06/03/2014 12/26/2015 Acute respiratory failure with hypoxemia 05/11/2014 12/26/2015 Overview: Increased O2 requirement overnight (2L to 5L) - bronchoscopy with BAL/TBLB tomorrow 8 AM. - NPO from midnight - hold tonight dose of lovenox. Radiation pneumonitis 05/11/20142015 Overview: 40 mg prednisone daily Immunodeficiency with predom inant T-cell defect, unspecified 03/11/2014 12/26/2015 Urgency of micturation 03/04/201412/25 Urinary frequency 03/04/2014 12/26/2015 Arm pain, left 07/06/2013 12/26/2015 Back pain without radiation 07/06/2013 12/26/2015 Abnormal finding on imaging 07/06/2013 12/26/2015 Elevated sed rate 07/06/2013 12/26/2015 Hyperpigmentation of skin 03/31/2013 Overview: --resolved --bilateral breast tissue and axilla --order mycolog cream --monitor Diarrhea 03/31/2013 12/26/2015 Overview: - c diff pending Mucositis (ulcerative) due t o antineoplastic therapy 03/24/2013 12/26/2015 Overview: --improved --oxy prn --mouth care measures. Reflux 03/23/2013 12/26/2015 Overview: --improved with protonix Elevated LFTs 03/22/2013 12/26/2015 Overview: --increased AST ALT during chemo, resolved. Excess fluid volume 03/21/2013 12/26/19 16 Overview: --diuresis as needed --continue to monitor volume status CINV (chemotherapy-induced n ausea and vomiting) 03/17/2013 10/13/2015 Overview: --Resolved --Ativan PRN (none used) Peripheral neuropathy 03/16/20132015 Overview: --gabapentin 300mg TID with increased symptoms, bedtime dose of gabapentin increased to 600mg with improvement reported, continue DVT prophylaxis 03/16/2013 12/26/2015 Overview: --platelet count decreasing, d/c heparin SQ --encourage ambulation Insomnia 03/16/2013 12/26/2015 Overview: --ambien PRN at HS, with relief, but with vivid dreams, ambien d/c --restoril at 30mg PRN at HS with relief, continue Chronic chest pain 03/16/2013 6 Overview: --now resolved --since Hodgkin lymphoma diagnosis per patient Hospital discharge follow-up 03/16/2013 12/26/2015 Overview: --Patient will need to follow up with Dr. Unger after discharge Tachycardia 03/16/2013 12/26/2015 Overview: --patient taking atenolol 100mg BID at home, now BP running lower, decreased atenolol dose to 50mg BID with hypotension. --increase to 75mg BID, d/t tachycardia(HRs >110 while afebrile), HR now controlled, continue --monitor closely Electrolyte and fluid disord ers not elsewhere classified 02/16/2013 12/26/2015 DISPOSITION AND FOLLOW-UP 10/27/2012 Overview: 32 yo female from [place], [place]. Family involved with care, at bedside. plan to discharge patient home - will arrange with case management for post op care as needed - follow up in OPD in 7-10 days Post-op pain 10/27/2012 12/26/2015 Overview: currently well controlled with [employer] REPRESENTATIVE. will start PO pain meds today 10/27. tolerating percocet, pain relatively well controlled. Hodgkin's disease with nodular sclerosis 05/27/2012 12/26/2015 Overview: Oncology history (per Dr. 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 Hodgkin's disease, unspecified 02/05/2012 05/11/2014 Vaginal bleeding 12/26/2015 Overview: --likely from thrombocytopenia. No menses in prior 8 months. Scant amount reported on 03/29 and 03/30, now resolved --monitor bleeding by counting pads --should f/u with her [employer] provider after BMT Premature menopause 12/26/19 16 Postmenopausal atrophic vaginitis 12/26/2015 Dyspareunia 12/26/2015 documented as of this encounter (statuses as of 09/01/2022) [facility]01-[facility] History of Past illness Narrative* Problem Noted Date Diagnosed Date Resolved Date Menorrhagia with regular cycle 03/15/2017 01/01/2018 Overview: Added automatically from request for surgery [id number] History of pulmonary embolism 04/25/2016 01/01/2018 Neoplastic (malignant) related fatigue 04/25/2016 01/01/2018 Hidradenitis suppurativa 01/17/2016 Vitamin D deficiency 06/09/2015 016 HyperCKemia 05/06/2015 12/26/2015 Elevated aldolase level 05/06/201508/2015 Chronic pain of both knees 05/06/2015 1 02/24/2015 Pain in joint, multiple sites 05/06/2015 12/26/2015 Myalgia 05/06/2015 12/26/2015 Fatigue 05/06/2015 12/26/2015 Malaise and fatigue 03/24/2015 12/26/19 16 Gastroesophageal reflux dise ase without esophagitis 02/23/2015 12/26/2015 Laryngitis 02/23/2015 12/26/2015 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 10/28/2014 12/26/2015 Papanicolaou smear of cervix with low grade squamous intraepithelial lesion (LGSIL) 10/24/2014 12/25/2019 Pain in joint, ankle and foot 09/27/2014 12/26/2015 ASCUS favor dysplasia 09/18/20142015 Visit for gynecologic examination 09/07/2014 12/26/2015 Postmenopausal HRT (hormone replacement therapy) 08/18/2014 12/26/2015 Overview: offered Gait abnormality 07/22/2014 12/26/2015 Weakness of both legs 07/22/20142015 Sprain of ankle, left 06/29/20142015 PCP (pneumocystis jiroveci pneumonia) 06/03/2014 12/26/2015 Acute respiratory failure with hypoxemia 05/11/2014 12/26/2015 Overview: Increased O2 requirement overnight (2L to 5L) - bronchoscopy with BAL/TBLB tomorrow 8 AM. - NPO from midnight - hold tonight dose of lovenox. Radiation pneumonitis 05/11/20142015 Overview: 40 mg prednisone daily Immunodeficiency with predom inant T-cell defect, unspecified 03/11/2014 12/26/2015 Urgency of micturation 03/04/201412/25 Urinary frequency 03/04/2014 12/26/2015 Arm pain, left 07/06/2013 12/26/2015 Back pain without radiation 07/06/2013 12/26/2015 Abnormal finding on imaging 07/06/2013 12/26/2015 Elevated sed rate 07/06/2013 12/26/2015 Hyperpigmentation of skin 03/31/2013 Overview: --resolved --bilateral breast tissue and axilla --order mycolog cream --monitor Diarrhea 03/31/2013 12/26/2015 Overview: - c diff pending Mucositis (ulcerative) due t o antineoplastic therapy 03/24/2013 12/26/2015 Overview: --improved --oxy prn --mouth care measures. Reflux 03/23/2013 12/26/2015 Overview: --improved with protonix Elevated LFTs 03/22/2013 12/26/2015 Overview: --increased AST ALT during chemo, resolved. Excess fluid volume 03/21/2013 12/26/19 16 Overview: --diuresis as needed --continue to monitor volume status CINV (chemotherapy-induced n ausea and vomiting) 03/17/2013 10/13/2015 Overview: --Resolved --Ativan PRN (none used) Peripheral neuropathy 03/16/20132015 Overview: --gabapentin 300mg TID with increased symptoms, bedtime dose of gabapentin increased to 600mg with improvement reported, continue DVT prophylaxis 03/16/2013 12/26/2015 Overview: --platelet count decreasing, d/c heparin SQ --encourage ambulation Insomnia 03/16/2013 12/26/2015 Overview: --ambien PRN at HS, with relief, but with vivid dreams, ambien d/c --restoril at 30mg PRN at HS with relief, continue Chronic chest pain 03/16/2013 6 Overview: --now resolved --since Hodgkin lymphoma diagnosis per patient Hospital discharge follow-up 03/16/2013 12/26/2015 Overview: --Patient will need to follow up with Dr. Unger after discharge Tachycardia 03/16/2013 12/26/2015 Overview: --patient taking atenolol 100mg BID at home, now BP running lower, decreased atenolol dose to 50mg BID with hypotension. --increase to 75mg BID, d/t tachycardia(HRs >110 while afebrile), HR now controlled, continue --monitor closely Electrolyte and fluid disord ers not elsewhere classified 02/16/2013 12/26/2015 DISPOSITION AND FOLLOW-UP 10/27/2012 Overview: 32 yo female from [place], [place]. Family involved with care, at bedside. plan to discharge patient home - will arrange with case management for post op care as needed - follow up in OPD in 7-10 days Post-op pain 10/27/2012 12/26/2015 Overview: currently well controlled with [employer]PRESENT[employer]IVE. will start PO pain meds today 10/27. tolerating percocet, pain relatively well controlled. Hodgkin's disease with nodular sclerosis 05/27/2012 12/26/2015 Overview: Oncology history (per Dr. 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 Hodgkin's disease, unspecified 02/05/2012 05/11/2014 Vaginal bleeding 12/26/2015 Overview: --likely from thrombocytopenia. No menses in prior 8 months. Scant amount reported on 03/29 and 03/30, now resolved --monitor bleeding by counting pads --should f/u with her [employer] provider after BMT Premature menopause 12/26/19 16 Postmenopausal atrophic vaginitis 12/26/2015 Dyspareunia 12/26/2015 documented as of this encounter (statuses as of 09/06/2022) [facility] History of Past illness Narrative* Problem Noted Date Diagnosed Date Resolved Date Menorrhagia with regular cycle 03/15/2017 01/01/2018 Overview: Added automatically from request for surgery [id number] History of pulmonary embolism 04/25/2016 01/01/2018 Neoplastic (malignant) related fatigue 04/25/2016 01/01/2018 Hidradenitis suppurativa 01/17/2016 Vitamin D deficiency 06/09/2015 016 HyperCKemia 05/06/2015 12/26/2015 Elevated aldolase level 05/06/2015 11/0 08/2015 Chronic pain of both knees 05/06/2015 1 02/24/2015 Pain in joint, multiple sites 05/06/2015 12/26/2015 Myalgia 05/06/2015 12/26/2015 Fatigue 05/06/2015 12/26/2015 Malaise and fatigue 03/24/2015 12/26/19 16 Gastroesophageal reflux dise ase without esophagitis 02/23/2015 12/26/2015 Laryngitis 02/23/2015 12/26/2015 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 10/28/2014 12/26/2015 Papanicolaou smear of cervix with low grade squamous intraepithelial lesion (LGSIL) 10/24/2014 12/25/2019 Pain in joint, ankle and foot 09/27/2014 12/26/2015 ASCUS favor dysplasia 09/18/20142015 Visit for gynecologic examination 09/07/2014 12/26/2015 Postmenopausal HRT (hormone replacement therapy) 08/18/2014 12/26/2015 Overview: offered Gait abnormality 07/22/2014 12/26/2015 Weakness of both legs 07/22/20142015 Sprain of ankle, left 06/29/20142015 PCP (pneumocystis jiroveci pneumonia) 06/03/2014 12/26/2015 Acute respiratory failure with hypoxemia 05/11/2014 12/26/2015 Overview: Increased O2 requirement overnight (2L to 5L) - bronchoscopy with BAL/TBLB tomorrow 8 AM. - NPO from midnight - hold tonight dose of lovenox. Radiation pneumonitis 05/11/20142015 Overview: 40 mg prednisone daily Immunodeficiency with predom inant T-cell defect, unspecified 03/11/2014 12/26/2015 Urgency of micturation 03/04/201412/25 Urinary frequency 03/04/2014 12/26/2015 Arm pain, left 07/06/2013 12/26/2015 Back pain without radiation 07/06/2013 12/26/2015 Abnormal finding on imaging 07/06/2013 12/26/2015 Elevated sed rate 07/06/2013 12/26/2015 Hyperpigmentation of skin 03/31/2013 Overview: --resolved --bilateral breast tissue and axilla --order mycolog cream --monitor Diarrhea 03/31/2013 12/26/2015 Overview: - c diff pending Mucositis (ulcerative) due t o antineoplastic therapy 03/24/2013 12/26/2015 Overview: --improved --oxy prn --mouth care measures. Reflux 03/23/2013 12/26/2015 Overview: --improved with protonix Elevated LFTs 03/22/2013 12/26/2015 Overview: --increased AST ALT during chemo, resolved. Excess fluid volume 03/21/2013 12/26/19 16 Overview: --diuresis as needed --continue to monitor volume status CINV (chemotherapy-induced n ausea and vomiting) 03/17/2013 10/13/2015 Overview: --Resolved --Ativan PRN (none used) Peripheral neuropathy 03/16/20132015 Overview: --gabapentin 300mg TID with increased symptoms, bedtime dose of gabapentin increased to 600mg with improvement reported, continue DVT prophylaxis 03/16/2013 12/26/2015 Overview: --platelet count decreasing, d/c heparin SQ --encourage ambulation Insomnia 03/16/2013 12/26/2015 Overview: --ambien PRN at HS, with relief, but with vivid dreams, ambien d/c --restoril at 30mg PRN at HS with relief, continue Chronic chest pain 03/16/2013 6 Overview: --now resolved --since Hodgkin lymphoma diagnosis per patient Hospital discharge follow-up 03/16/2013 12/26/2015 Overview: --Patient will need to follow up with Dr. Unger after discharge Tachycardia 03/16/2013 12/26/2015 Overview: --patient taking atenolol 100mg BID at home, now BP running lower, decreased atenolol dose to 50mg BID with hypotension. --increase to 75mg BID, d/t tachycardia(HRs >110 while afebrile), HR now controlled, continue --monitor closely Electrolyte and fluid disord ers not elsewhere classified 02/16/2013 12/26/2015 DISPOSITION AND FOLLOW-UP 10/27/2012 Overview: 32 yo female from [place], [place]. Family involved with care, at bedside. plan to discharge patient home - will arrange with case management for post op care as needed - follow up in OPD in 7-10 days Post-op pain 10/27/2012 12/26/2015 Overview: currently well controlled with [employer]PRESENT[employer]IVE. will start PO pain meds today 10/27. tolerating percocet, pain relatively well controlled. Hodgkin's disease with nodular sclerosis 05/27/2012 12/26/2015 Overview: Oncology history (per Dr. 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 Hodgkin's disease, unspecified 02/05/2012 05/11/2014 Vaginal bleeding 12/26/2015 Overview: --likely from thrombocytopenia. No menses in prior 8 months. Scant amount reported on 03/29 and 03/30, now resolved --monitor bleeding by counting pads --should f/u with her [employer] provider after BMT Premature menopause 12/26/19 16 Postmenopausal atrophic vaginitis 12/26/2015 Dyspareunia 12/26/2015 documented as of this encounter (statuses as of 09/13/2022) [facility] History of Past illness Narrative* Problem Noted Date Diagnosed Date Resolved Date Menorrhagia with regular cycle 03/15/2017 01/01/2018 Overview: Added automatically from request for surgery [id number] History of pulmonary embolism 04/25/2016 01/01/2018 Neoplastic (malignant) related fatigue 04/25/2016 01/01/2018 Hidradenitis suppurativa 01/17/2016 Vitamin D deficiency 06/09/2015 016 HyperCKemia 05/06/2015 12/26/2015 Elevated aldolase level 05/06/201508/2015 Chronic pain of both knees 05/06/2015 1 02/24/2015 Pain in joint, multiple sites 05/06/2015 12/26/2015 Myalgia 05/06/2015 12/26/2015 Fatigue 05/06/2015 12/26/2015 Malaise and fatigue 03/24/2015 12/26/19 16 Gastroesophageal reflux dise ase without esophagitis 02/23/2015 12/26/2015 Laryngitis 02/23/2015 12/26/2015 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 10/28/2014 12/26/2015 Papanicolaou smear of cervix with low grade squamous intraepithelial lesion (LGSIL) 10/24/2014 12/25/2019 Pain in joint, ankle and foot 09/27/2014 12/26/2015 ASCUS favor dysplasia 09/18/20142015 Visit for gynecologic examination 09/07/2014 12/26/2015 Postmenopausal HRT (hormone replacement therapy) 08/18/2014 12/26/2015 Overview: offered Gait abnormality 07/22/2014 12/26/2015 Weakness of both legs 07/22/20142015 Sprain of ankle, left 06/29/20142015 PCP (pneumocystis jiroveci pneumonia) 06/03/2014 12/26/2015 Acute respiratory failure with hypoxemia 05/11/2014 12/26/2015 Overview: Increased O2 requirement overnight (2L to 5L) - bronchoscopy with BAL/TBLB tomorrow 8 AM. - NPO from midnight - hold tonight dose of lovenox. Radiation pneumonitis 05/11/20142015 Overview: 40 mg prednisone daily Immunodeficiency with predom inant T-cell defect, unspecified 03/11/2014 12/26/2015 Urgency of micturation 03/04/201412/25 Urinary frequency 03/04/2014 12/26/2015 Arm pain, left 07/06/2013 12/26/2015 Back pain without radiation 07/06/2013 12/26/2015 Abnormal finding on imaging 07/06/2013 12/26/2015 Elevated sed rate 07/06/2013 12/26/2015 Hyperpigmentation of skin 03/31/2013 Overview: --resolved --bilateral breast tissue and axilla --order mycolog cream --monitor Diarrhea 03/31/2013 12/26/2015 Overview: - c diff pending Mucositis (ulcerative) due t o antineoplastic therapy 03/24/2013 12/26/2015 Overview: --improved --oxy prn --mouth care measures. Reflux 03/23/2013 12/26/2015 Overview: --improved with protonix Elevated LFTs 03/22/2013 12/26/2015 Overview: --increased AST ALT during chemo, resolved. Excess fluid volume 03/21/2013 12/26/19 16 Overview: --diuresis as needed --continue to monitor volume status CINV (chemotherapy-induced n ausea and vomiting) 03/17/2013 10/13/2015 Overview: --Resolved --Ativan PRN (none used) Peripheral neuropathy 03/16/20132015 Overview: --gabapentin 300mg TID with increased symptoms, bedtime dose of gabapentin increased to 600mg with improvement reported, continue DVT prophylaxis 03/16/2013 12/26/2015 Overview: --platelet count decreasing, d/c heparin SQ --encourage ambulation Insomnia 03/16/2013 12/26/2015 Overview: --ambien PRN at HS, with relief, but with vivid dreams, ambien d/c --restoril at 30mg PRN at HS with relief, continue Chronic chest pain 03/16/2013 6 Overview: --now resolved --since Hodgkin lymphoma diagnosis per patient Hospital discharge follow-up 03/16/2013 12/26/2015 Overview: --Patient will need to follow up with Dr. Unger after discharge Tachycardia 03/16/2013 12/26/2015 Overview: --patient taking atenolol 100mg BID at home, now BP running lower, decreased atenolol dose to 50mg BID with hypotension. --increase to 75mg BID, d/t tachycardia(HRs >110 while afebrile), HR now controlled, continue --monitor closely Electrolyte and fluid disord ers not elsewhere classified 02/16/2013 12/26/2015 DISPOSITION AND FOLLOW-UP 10/27/2012 Overview: 32 yo female from [place], [place]. Family involved with care, at bedside. plan to discharge patient home - will arrange with case management for post op care as needed - follow up in OPD in 7-10 days Post-op pain 10/27/2012 12/26/2015 Overview: currently well controlled with [employer] REPRESENT[employer]IVE. will start PO pain meds today 10/27. tolerating percocet, pain relatively well controlled. Hodgkin's disease with nodular sclerosis 05/27/2012 12/26/2015 Overview: Oncology history (per Dr. 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 Hodgkin's disease, unspecified 02/05/2012 05/11/2014 Vaginal bleeding 12/26/2015 Overview: --likely from thrombocytopenia. No menses in prior 8 months. Scant amount reported on 03/29 and 03/30, now resolved --monitor bleeding by counting pads --should f/u with her [employer] provider after BMT Premature menopause 12/26/19 16 Postmenopausal atrophic vaginitis 12/26/2015 Dyspareunia 12/26/2015 documented as of this encounter (statuses as of 09/28/2022) [facility] History of Past illness Narrative* Problem Noted Date Diagnosed Date Resolved Date Menorrhagia with regular cycle 03/15/2017 01/01/2018 Overview: Added automatically from request for surgery [id number] History of pulmonary embolism 04/25/2016 01/01/2018 Neoplastic (malignant) related fatigue 04/25/2016 01/01/2018 Hidradenitis suppurativa 01/17/2016 Vitamin D deficiency 06/09/2015 016 HyperCKemia 05/06/2015 12/26/2015 Elevated aldolase level 05/06/201508/2015 Chronic pain of both knees 05/06/2015 1 02/24/2015 Pain in joint, multiple sites 05/06/2015 12/26/2015 Myalgia 05/06/2015 12/26/2015 Fatigue 05/06/2015 12/26/2015 Malaise and fatigue 03/24/2015 12/26/19 16 Gastroesophageal reflux dise ase without esophagitis 02/23/2015 12/26/2015 Laryngitis 02/23/2015 12/26/2015 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 10/28/2014 12/26/2015 Papanicolaou smear of cervix with low grade squamous intraepithelial lesion (LGSIL) 10/24/2014 12/25/2019 Pain in joint, ankle and foot 09/27/2014 12/26/2015 ASCUS favor dysplasia 09/18/20142015 Visit for gynecologic examination 09/07/2014 12/26/2015 Postmenopausal HRT (hormone replacement therapy) 08/18/2014 12/26/2015 Overview: offered Gait abnormality 07/22/2014 12/26/2015 Weakness of both legs 07/22/20142015 Sprain of ankle, left 06/29/20142015 PCP (pneumocystis jiroveci pneumonia) 06/03/2014 12/26/2015 Acute respiratory failure with hypoxemia 05/11/2014 12/26/2015 Overview: Increased O2 requirement overnight (2L to 5L) - bronchoscopy with BAL/TBLB tomorrow 8 AM. - NPO from midnight - hold tonight dose of lovenox. Radiation pneumonitis 05/11/20142015 Overview: 40 mg prednisone daily Immunodeficiency with predom inant T-cell defect, unspecified 03/11/2014 12/26/2015 Urgency of micturation 03/04/201412/25 Urinary frequency 03/04/2014 12/26/2015 Arm pain, left 07/06/2013 12/26/2015 Back pain without radiation 07/06/2013 12/26/2015 Abnormal finding on imaging 07/06/2013 12/26/2015 Elevated sed rate 07/06/2013 12/26/2015 Hyperpigmentation of skin 03/31/2013 Overview: --resolved --bilateral breast tissue and axilla --order mycolog cream --monitor Diarrhea 03/31/2013 12/26/2015 Overview: - c diff pending Mucositis (ulcerative) due t o antineoplastic therapy 03/24/2013 12/26/2015 Overview: --improved --oxy prn --mouth care measures. Reflux 03/23/2013 12/26/2015 Overview: --improved with protonix Elevated LFTs 03/22/2013 12/26/2015 Overview: --increased AST ALT during chemo, resolved. Excess fluid volume 03/21/2013 12/26/19 16 Overview: --diuresis as needed --continue to monitor volume status CINV (chemotherapy-induced n ausea and vomiting) 03/17/2013 10/13/2015 Overview: --Resolved --Ativan PRN (none used) Peripheral neuropathy 03/16/20132015 Overview: --gabapentin 300mg TID with increased symptoms, bedtime dose of gabapentin increased to 600mg with improvement reported, continue DVT prophylaxis 03/16/2013 12/26/2015 Overview: --platelet count decreasing, d/c heparin SQ --encourage ambulation Insomnia 03/16/2013 12/26/2015 Overview: --ambien PRN at HS, with relief, but with vivid dreams, ambien d/c --restoril at 30mg PRN at HS with relief, continue Chronic chest pain 03/16/2013 6 Overview: --now resolved --since Hodgkin lymphoma diagnosis per patient Hospital discharge follow-up 03/16/2013 12/26/2015 Overview: --Patient will need to follow up with Dr. Unger after discharge Tachycardia 03/16/2013 12/26/2015 Overview: --patient taking atenolol 100mg BID at home, now BP running lower, decreased atenolol dose to 50mg BID with hypotension. --increase to 75mg BID, d/t tachycardia(HRs >110 while afebrile), HR now controlled, continue --monitor closely Electrolyte and fluid disord ers not elsewhere classified 02/16/2013 12/26/2015 DISPOSITION AND FOLLOW-UP 10/27/2012 Overview: 32 yo female from [place], [place]. Family involved with care, at bedside. plan to discharge patient home - will arrange with case management for post op care as needed - follow up in OPD in 7-10 days Post-op pain 10/27/2012 12/26/2015 Overview: currently well controlled with [employer] REPRESENTATIVE. will start PO pain meds today 10/27. tolerating percocet, pain relatively well controlled. Hodgkin's disease with nodular sclerosis 05/27/2012 12/26/2015 Overview: Oncology history (per Dr. 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 Hodgkin's disease, unspecified 02/05/2012 05/11/2014 Vaginal bleeding 12/26/2015 Overview: --likely from thrombocytopenia. No menses in prior 8 months. Scant amount reported on 03/29 and 03/30, now resolved --monitor bleeding by counting pads --should f/u with her [employer] provider after BMT Premature menopause 12/26/19 16 Postmenopausal atrophic vaginitis 12/26/2015 Dyspareunia 12/26/2015 documented as of this encounter (statuses as of 10/08/2022) [facility] History of Past illness Narrative* Problem Noted Date Diagnosed Date Resolved Date Menorrhagia with regular cycle 03/15/2017 01/01/2018 Overview: Added automatically from request for surgery [id number] History of pulmonary embolism 04/25/2016 01/01/2018 Neoplastic (malignant) related fatigue 04/25/2016 01/01/2018 Hidradenitis suppurativa 01/17/2016 Vitamin D deficiency 06/09/2015 016 HyperCKemia 05/06/2015 12/26/2015 Elevated aldolase level 05/06/2015 11/0 08/2015 Chronic pain of both knees 05/06/2015 1 02/24/2015 Pain in joint, multiple sites 05/06/2015 12/26/2015 Myalgia 05/06/2015 12/26/2015 Fatigue 05/06/2015 12/26/2015 Malaise and fatigue 03/24/2015 12/26/19 16 Gastroesophageal reflux dise ase without esophagitis 02/23/2015 12/26/2015 Laryngitis 02/23/2015 12/26/2015 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 10/28/2014 12/26/2015 Papanicolaou smear of cervix with low grade squamous intraepithelial lesion (LGSIL) 10/24/2014 12/25/2019 Pain in joint, ankle and foot 09/27/2014 12/26/2015 ASCUS favor dysplasia 09/18/20142015 Visit for gynecologic examination 09/07/2014 12/26/2015 Postmenopausal HRT (hormone replacement therapy) 08/18/2014 12/26/2015 Overview: offered Gait abnormality 07/22/2014 12/26/2015 Weakness of both legs 07/22/20142015 Sprain of ankle, left 06/29/20142015 PCP (pneumocystis jiroveci pneumonia) 06/03/2014 12/26/2015 Acute respiratory failure with hypoxemia 05/11/2014 12/26/2015 Overview: Increased O2 requirement overnight (2L to 5L) - bronchoscopy with BAL/TBLB tomorrow 8 AM. - NPO from midnight - hold tonight dose of lovenox. Radiation pneumonitis 05/11/20142015 Overview: 40 mg prednisone daily Immunodeficiency with predom inant T-cell defect, unspecified 03/11/2014 12/26/2015 Urgency of micturation 03/04/201412/25 Urinary frequency 03/04/2014 12/26/2015 Arm pain, left 07/06/2013 12/26/2015 Back pain without radiation 07/06/2013 12/26/2015 Abnormal finding on imaging 07/06/2013 12/26/2015 Elevated sed rate 07/06/2013 12/26/2015 Hyperpigmentation of skin 03/31/2013 Overview: --resolved --bilateral breast tissue and axilla --order mycolog cream --monitor Diarrhea 03/31/2013 12/26/2015 Overview: - c diff pending Mucositis (ulcerative) due t o antineoplastic therapy 03/24/2013 12/26/2015 Overview: --improved --oxy prn --mouth care measures. Reflux 03/23/2013 12/26/2015 Overview: --improved with protonix Elevated LFTs 03/22/2013 12/26/2015 Overview: --increased AST ALT during chemo, resolved. Excess fluid volume 03/21/2013 12/26/19 16 Overview: --diuresis as needed --continue to monitor volume status CINV (chemotherapy-induced n ausea and vomiting) 03/17/2013 10/13/2015 Overview: --Resolved --Ativan PRN (none used) Peripheral neuropathy 03/16/20132015 Overview: --gabapentin 300mg TID with increased symptoms, bedtime dose of gabapentin increased to 600mg with improvement reported, continue DVT prophylaxis 03/16/2013 12/26/2015 Overview: --platelet count decreasing, d/c heparin SQ --encourage ambulation Insomnia 03/16/2013 12/26/2015 Overview: --ambien PRN at HS, with relief, but with vivid dreams, ambien d/c --restoril at 30mg PRN at HS with relief, continue Chronic chest pain 03/16/2013 6 Overview: --now resolved --since Hodgkin lymphoma diagnosis per patient Hospital discharge follow-up 03/16/2013 12/26/2015 Overview: --Patient will need to follow up with Dr. Unger after discharge Tachycardia 03/16/2013 12/26/2015 Overview: --patient taking atenolol 100mg BID at home, now BP running lower, decreased atenolol dose to 50mg BID with hypotension. --increase to 75mg BID, d/t tachycardia(HRs >110 while afebrile), HR now controlled, continue --monitor closely Electrolyte and fluid disord ers not elsewhere classified 02/16/2013 12/26/2015 DISPOSITION AND FOLLOW-UP 10/27/2012 Overview: 32 yo female from [place], [place]. Family involved with care, at bedside. plan to discharge patient home - will arrange with case management for post op care as needed - follow up in OPD in 7-10 days Post-op pain 10/27/2012 12/26/2015 Overview: currently well controlled with [employer] SAL[employer] REPRESENTATIVE. will start PO pain meds today 10/27. tolerating percocet, pain relatively well controlled. Hodgkin's disease with nodular sclerosis 05/27/2012 12/26/2015 Overview: Oncology history (per Dr. 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 Hodgkin's disease, unspecified 02/05/2012 05/11/2014 Vaginal bleeding 12/26/2015 Overview: --likely from thrombocytopenia. No menses in prior 8 months. Scant amount reported on 03/29 and 03/30, now resolved --monitor bleeding by counting pads --should f/u with her [employer] provider after BMT Premature menopause 12/26/19 16 Postmenopausal atrophic vaginitis 12/26/2015 Dyspareunia 12/26/2015 documented as of this encounter (statuses as of 10/09/2022) [place] [id number] History of Past illness Narrative* Problem Noted Date Diagnosed Date Resolved Date Menorrhagia with regular cycle 03/15/2017 01/01/2018 Overview: Added automatically from request for surgery [id number] History of pulmonary embolism 04/25/2016 01/01/2018 Neoplastic (malignant) related fatigue 04/25/2016 01/01/2018 Hidradenitis suppurativa 01/17/2016 Vitamin D deficiency 06/09/2015 016 HyperCKemia 05/06/2015 12/26/2015 Elevated aldolase level 05/06/201508/2015 Chronic pain of both knees 05/06/2015 1 02/24/2015 Pain in joint, multiple sites 05/06/2015 12/26/2015 Myalgia 05/06/2015 12/26/2015 Fatigue 05/06/2015 12/26/2015 Malaise and fatigue 03/24/2015 12/26/19 16 Gastroesophageal reflux dise ase without esophagitis 02/23/2015 12/26/2015 Laryngitis 02/23/2015 12/26/2015 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 10/28/2014 12/26/2015 Papanicolaou smear of cervix with low grade squamous intraepithelial lesion (LGSIL) 10/24/2014 12/25/2019 Pain in joint, ankle and foot 09/27/2014 12/26/2015 ASCUS favor dysplasia 09/18/20142015 Visit for gynecologic examination 09/07/2014 12/26/2015 Postmenopausal HRT (hormone replacement therapy) 08/18/2014 12/26/2015 Overview: offered Gait abnormality 07/22/2014 12/26/2015 Weakness of both legs 07/22/20142015 Sprain of ankle, left 06/29/20142015 PCP (pneumocystis jiroveci pneumonia) 06/03/2014 12/26/2015 Acute respiratory failure with hypoxemia 05/11/2014 12/26/2015 Overview: Increased O2 requirement overnight (2L to 5L) - bronchoscopy with BAL/TBLB tomorrow 8 AM. - NPO from midnight - hold tonight dose of lovenox. Radiation pneumonitis 05/11/20142015 Overview: 40 mg prednisone daily Immunodeficiency with predom inant T-cell defect, unspecified 03/11/2014 12/26/2015 Urgency of micturation 03/04/201412/25 Urinary frequency 03/04/2014 12/26/2015 Arm pain, left 07/06/2013 12/26/2015 Back pain without radiation 07/06/2013 12/26/2015 Abnormal finding on imaging 07/06/2013 12/26/2015 Elevated sed rate 07/06/2013 12/26/2015 Hyperpigmentation of skin 03/31/2013 Overview: --resolved --bilateral breast tissue and axilla --order mycolog cream --monitor Diarrhea 03/31/2013 12/26/2015 Overview: - c diff pending Mucositis (ulcerative) due t o antineoplastic therapy 03/24/2013 12/26/2015 Overview: --improved --oxy prn --mouth care measures. Reflux 03/23/2013 12/26/2015 Overview: --improved with protonix Elevated LFTs 03/22/2013 12/26/2015 Overview: --increased AST ALT during chemo, resolved. Excess fluid volume 03/21/2013 12/26/19 16 Overview: --diuresis as needed --continue to monitor volume status CINV (chemotherapy-induced n ausea and vomiting) 03/17/2013 10/13/2015 Overview: --Resolved --Ativan PRN (none used) Peripheral neuropathy 03/16/20132015 Overview: --gabapentin 300mg TID with increased symptoms, bedtime dose of gabapentin increased to 600mg with improvement reported, continue DVT prophylaxis 03/16/2013 12/26/2015 Overview: --platelet count decreasing, d/c heparin SQ --encourage ambulation Insomnia 03/16/2013 12/26/2015 Overview: --ambien PRN at HS, with relief, but with vivid dreams, ambien d/c --restoril at 30mg PRN at HS with relief, continue Chronic chest pain 03/16/2013 6 Overview: --now resolved --since Hodgkin lymphoma diagnosis per patient Hospital discharge follow-up 03/16/2013 12/26/2015 Overview: --Patient will need to follow up with Dr. Unger after discharge Tachycardia 03/16/2013 12/26/2015 Overview: --patient taking atenolol 100mg BID at home, now BP running lower, decreased atenolol dose to 50mg BID with hypotension. --increase to 75mg BID, d/t tachycardia(HRs >110 while afebrile), HR now controlled, continue --monitor closely Electrolyte and fluid disord ers not elsewhere classified 02/16/2013 12/26/2015 DISPOSITION AND FOLLOW-UP 10/27/2012 Overview: 32 yo female from [place], [place]. Family involved with care, at bedside. plan to discharge patient home - will arrange with case management for post op care as needed - follow up in OPD in 7-10 days Post-op pain 10/27/2012 12/26/2015 Overview: currently well controlled with [employer] REPRESENTATIVE. will start PO pain meds today 10/27. tolerating percocet, pain relatively well controlled. Hodgkin's disease with nodular sclerosis 05/27/2012 12/26/2015 Overview: Oncology history (per Dr. 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 Hodgkin's disease, unspecified 02/05/2012 05/11/2014 Vaginal bleeding 12/26/2015 Overview: --likely from thrombocytopenia. No menses in prior 8 months. Scant amount reported on 03/29 and 03/30, now resolved --monitor bleeding by counting pads --should f/u with her [employer] provider after BMT Premature menopause 12/26/19 16 Postmenopausal atrophic vaginitis 12/26/2015 Dyspareunia 12/26/2015 documented as of this encounter (statuses as of 10/09/2022) [facility]2018 History of Past illness Narrative* Problem Noted Date Diagnosed Date Resolved Date Menorrhagia with regular cycle 03/15/2017 01/01/2018 Overview: Added automatically from request for surgery [id number] History of pulmonary embolism 04/25/2016 01/01/2018 Neoplastic (malignant) related fatigue 04/25/2016 01/01/2018 Hidradenitis suppurativa 01/17/2016 Vitamin D deficiency 06/09/2015 016 HyperCKemia 05/06/2015 12/26/2015 Elevated aldolase level 05/06/201508/2015 Chronic pain of both knees 05/06/2015 1 02/24/2015 Pain in joint, multiple sites 05/06/2015 12/26/2015 Myalgia 05/06/2015 12/26/2015 Fatigue 05/06/2015 12/26/2015 Malaise and fatigue 03/24/2015 12/26/19 16 Gastroesophageal reflux dise ase without esophagitis 02/23/2015 12/26/2015 Laryngitis 02/23/2015 12/26/2015 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 10/28/2014 12/26/2015 Papanicolaou smear of cervix with low grade squamous intraepithelial lesion (LGSIL) 10/24/2014 12/25/2019 Pain in joint, ankle and foot 09/27/2014 12/26/2015 ASCUS favor dysplasia 09/18/20142015 Visit for gynecologic examination 09/07/2014 12/26/2015 Postmenopausal HRT (hormone replacement therapy) 08/18/2014 12/26/2015 Overview: offered Gait abnormality 07/22/2014 12/26/2015 Weakness of both legs 07/22/20142015 Sprain of ankle, left 06/29/20142015 PCP (pneumocystis jiroveci pneumonia) 06/03/2014 12/26/2015 Acute respiratory failure with hypoxemia 05/11/2014 12/26/2015 Overview: Increased O2 requirement overnight (2L to 5L) - bronchoscopy with BAL/TBLB tomorrow 8 AM. - NPO from midnight - hold tonight dose of lovenox. Radiation pneumonitis 05/11/20142015 Overview: 40 mg prednisone daily Immunodeficiency with predom inant T-cell defect, unspecified 03/11/2014 12/26/2015 Urgency of micturation 03/04/201412/25 Urinary frequency 03/04/2014 12/26/2015 Arm pain, left 07/06/2013 12/26/2015 Back pain without radiation 07/06/2013 12/26/2015 Abnormal finding on imaging 07/06/2013 12/26/2015 Elevated sed rate 07/06/2013 12/26/2015 Hyperpigmentation of skin 03/31/2013 Overview: --resolved --bilateral breast tissue and axilla --order mycolog cream --monitor Diarrhea 03/31/2013 12/26/2015 Overview: - c diff pending Mucositis (ulcerative) due t o antineoplastic therapy 03/24/2013 12/26/2015 Overview: --improved --oxy prn --mouth care measures. Reflux 03/23/2013 12/26/2015 Overview: --improved with protonix Elevated LFTs 03/22/2013 12/26/2015 Overview: --increased AST ALT during chemo, resolved. Excess fluid volume 03/21/2013 12/26/19 16 Overview: --diuresis as needed --continue to monitor volume status CINV (chemotherapy-induced n ausea and vomiting) 03/17/2013 10/13/2015 Overview: --Resolved --Ativan PRN (none used) Peripheral neuropathy 03/16/20132015 Overview: --gabapentin 300mg TID with increased symptoms, bedtime dose of gabapentin increased to 600mg with improvement reported, continue DVT prophylaxis 03/16/2013 12/26/2015 Overview: --platelet count decreasing, d/c heparin SQ --encourage ambulation Insomnia 03/16/2013 12/26/2015 Overview: --ambien PRN at HS, with relief, but with vivid dreams, ambien d/c --restoril at 30mg PRN at HS with relief, continue Chronic chest pain 03/16/2013 6 Overview: --now resolved --since Hodgkin lymphoma diagnosis per patient Hospital discharge follow-up 03/16/2013 12/26/2015 Overview: --Patient will need to follow up with Dr. Unger after discharge Tachycardia 03/16/2013 12/26/2015 Overview: --patient taking atenolol 100mg BID at home, now BP running lower, decreased atenolol dose to 50mg BID with hypotension. --increase to 75mg BID, d/t tachycardia(HRs >110 while afebrile), HR now controlled, continue --monitor closely Electrolyte and fluid disord ers not elsewhere classified 02/16/2013 12/26/2015 DISPOSITION AND FOLLOW-UP 10/27/2012 Overview: 32 yo female from [place], [place]. Family involved with care, at bedside. plan to discharge patient home - will arrange with case management for post op care as needed - follow up in OPD in 7-10 days Post-op pain 10/27/2012 12/26/2015 Overview: currently well controlled with [employer] REPRESENTATIVE. will start PO pain meds today 10/27. tolerating percocet, pain relatively well controlled. Hodgkin's disease with nodular sclerosis 05/27/2012 12/26/2015 Overview: Oncology history (per Dr. 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 Hodgkin's disease, unspecified 02/05/2012 05/11/2014 Vaginal bleeding 12/26/2015 Overview: --likely from thrombocytopenia. No menses in prior 8 months. Scant amount reported on 03/29 and 03/30, now resolved --monitor bleeding by counting pads --should f/u with her [employer] provider after BMT Premature menopause 12/26/19 16 Postmenopausal atrophic vaginitis 12/26/2015 Dyspareunia 12/26/2015 documented as of this encounter (statuses as of 10/10/2022) [facility]01-26-2018 History of Past illness Narrative* Problem Noted Date Diagnosed Date Resolved Date Menorrhagia with regular cycle 03/15/2017 01/01/2018 Overview: Added automatically from request for surgery [id number] History of pulmonary embolism 04/25/2016 01/01/2018 Neoplastic (malignant) related fatigue 04/25/2016 01/01/2018 Hidradenitis suppurativa 01/17/2016 Vitamin D deficiency 06/09/2015 016 HyperCKemia 05/06/2015 12/26/2015 Elevated aldolase level 05/06/2015 11/0 08/2015 Chronic pain of both knees 05/06/2015 1 02/24/2015 Pain in joint, multiple sites 05/06/2015 12/26/2015 Myalgia 05/06/2015 12/26/2015 Fatigue 05/06/2015 12/26/2015 Malaise and fatigue 03/24/2015 12/26/19 16 Gastroesophageal reflux dise ase without esophagitis 02/23/2015 12/26/2015 Laryngitis 02/23/2015 12/26/2015 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 10/28/2014 12/26/2015 Papanicolaou smear of cervix with low grade squamous intraepithelial lesion (LGSIL) 10/24/2014 12/25/2019 Pain in joint, ankle and foot 09/27/2014 12/26/2015 ASCUS favor dysplasia 09/18/20142015 Visit for gynecologic examination 09/07/2014 12/26/2015 Postmenopausal HRT (hormone replacement therapy) 08/18/2014 12/26/2015 Overview: offered Gait abnormality 07/22/2014 12/26/2015 Weakness of both legs 07/22/20142015 Sprain of ankle, left 06/29/20142015 PCP (pneumocystis jiroveci pneumonia) 06/03/2014 12/26/2015 Acute respiratory failure with hypoxemia 05/11/2014 12/26/2015 Overview: Increased O2 requirement overnight (2L to 5L) - bronchoscopy with BAL/TBLB tomorrow 8 AM. - NPO from midnight - hold tonight dose of lovenox. Radiation pneumonitis 05/11/20142015 Overview: 40 mg prednisone daily Immunodeficiency with predom inant T-cell defect, unspecified 03/11/2014 12/26/2015 Urgency of micturation 03/04/201412/25 Urinary frequency 03/04/2014 12/26/2015 Arm pain, left 07/06/2013 12/26/2015 Back pain without radiation 07/06/2013 12/26/2015 Abnormal finding on imaging 07/06/2013 12/26/2015 Elevated sed rate 07/06/2013 12/26/2015 Hyperpigmentation of skin 03/31/2013 Overview: --resolved --bilateral breast tissue and axilla --order mycolog cream --monitor Diarrhea 03/31/2013 12/26/2015 Overview: - c diff pending Mucositis (ulcerative) due t o antineoplastic therapy 03/24/2013 12/26/2015 Overview: --improved --oxy prn --mouth care measures. Reflux 03/23/2013 12/26/2015 Overview: --improved with protonix Elevated LFTs 03/22/2013 12/26/2015 Overview: --increased AST ALT during chemo, resolved. Excess fluid volume 03/21/2013 12/26/19 16 Overview: --diuresis as needed --continue to monitor volume status CINV (chemotherapy-induced n ausea and vomiting) 03/17/2013 10/13/2015 Overview: --Resolved --Ativan PRN (none used) Peripheral neuropathy 03/16/20132015 Overview: --gabapentin 300mg TID with increased symptoms, bedtime dose of gabapentin increased to 600mg with improvement reported, continue DVT prophylaxis 03/16/2013 12/26/2015 Overview: --platelet count decreasing, d/c heparin SQ --encourage ambulation Insomnia 03/16/2013 12/26/2015 Overview: --ambien PRN at HS, with relief, but with vivid dreams, ambien d/c --restoril at 30mg PRN at HS with relief, continue Chronic chest pain 03/16/2013 6 Overview: --now resolved --since Hodgkin lymphoma diagnosis per patient Hospital discharge follow-up 03/16/2013 12/26/2015 Overview: --Patient will need to follow up with Dr. Unger after discharge Tachycardia 03/16/2013 12/26/2015 Overview: --patient taking atenolol 100mg BID at home, now BP running lower, decreased atenolol dose to 50mg BID with hypotension. --increase to 75mg BID, d/t tachycardia(HRs >110 while afebrile), HR now controlled, continue --monitor closely Electrolyte and fluid disord ers not elsewhere classified 02/16/2013 12/26/2015 DISPOSITION AND FOLLOW-UP 10/27/2012 Overview: 32 yo female from [place], [place]. Family involved with care, at bedside. plan to discharge patient home - will arrange with case management for post op care as needed - follow up in OPD in 7-10 days Post-op pain 10/27/2012 12/26/2015 Overview: currently well controlled with [employer] REPRESENTATIVE. will start PO pain meds today 10/27. tolerating percocet, pain relatively well controlled. Hodgkin's disease with nodular sclerosis 05/27/2012 12/26/2015 Overview: Oncology history (per Dr. 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 Hodgkin's disease, unspecified 02/05/2012 05/11/2014 Vaginal bleeding 12/26/2015 Overview: --likely from thrombocytopenia. No menses in prior 8 months. Scant amount reported on 03/29 and 03/30, now resolved --monitor bleeding by counting pads --should f/u with her [employer] provider after BMT Premature menopause 12/26/19 16 Postmenopausal atrophic vaginitis 12/26/2015 Dyspareunia 12/26/2015 documented as of this encounter (statuses as of 10/10/2022) [facility]01-26[facility]2018 History of Past illness Narrative* Problem Noted Date Diagnosed Date Resolved Date Menorrhagia with regular cycle 03/15/2017 01/01/2018 Overview: Added automatically from request for surgery [id number] History of pulmonary embolism 04/25/2016 01/01/2018 Neoplastic (malignant) related fatigue 04/25/2016 01/01/2018 Hidradenitis suppurativa 01/17/2016 Vitamin D deficiency 06/09/2015 016 HyperCKemia 05/06/2015 12/26/2015 Elevated aldolase level 05/06/201508/2015 Chronic pain of both knees 05/06/2015 1 02/24/2015 Pain in joint, multiple sites 05/06/2015 12/26/2015 Myalgia 05/06/2015 12/26/2015 Fatigue 05/06/2015 12/26/2015 Malaise and fatigue 03/24/2015 12/26/19 16 Gastroesophageal reflux dise ase without esophagitis 02/23/2015 12/26/2015 Laryngitis 02/23/2015 12/26/2015 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 10/28/2014 12/26/2015 Papanicolaou smear of cervix with low grade squamous intraepithelial lesion (LGSIL) 10/24/2014 12/25/2019 Pain in joint, ankle and foot 09/27/2014 12/26/2015 ASCUS favor dysplasia 09/18/20142015 Visit for gynecologic examination 09/07/2014 12/26/2015 Postmenopausal HRT (hormone replacement therapy) 08/18/2014 12/26/2015 Overview: offered Gait abnormality 07/22/2014 12/26/2015 Weakness of both legs 07/22/20142015 Sprain of ankle, left 06/29/20142015 PCP (pneumocystis jiroveci pneumonia) 06/03/2014 12/26/2015 Acute respiratory failure with hypoxemia 05/11/2014 12/26/2015 Overview: Increased O2 requirement overnight (2L to 5L) - bronchoscopy with BAL/TBLB tomorrow 8 AM. - NPO from midnight - hold tonight dose of lovenox. Radiation pneumonitis 05/11/20142015 Overview: 40 mg prednisone daily Immunodeficiency with predom inant T-cell defect, unspecified 03/11/2014 12/26/2015 Urgency of micturation 03/04/201412/25 Urinary frequency 03/04/2014 12/26/2015 Arm pain, left 07/06/2013 12/26/2015 Back pain without radiation 07/06/2013 12/26/2015 Abnormal finding on imaging 07/06/2013 12/26/2015 Elevated sed rate 07/06/2013 12/26/2015 Hyperpigmentation of skin 03/31/2013 Overview: --resolved --bilateral breast tissue and axilla --order mycolog cream --monitor Diarrhea 03/31/2013 12/26/2015 Overview: - c diff pending Mucositis (ulcerative) due t o antineoplastic therapy 03/24/2013 12/26/2015 Overview: --improved --oxy prn --mouth care measures. Reflux 03/23/2013 12/26/2015 Overview: --improved with protonix Elevated LFTs 03/22/2013 12/26/2015 Overview: --increased AST ALT during chemo, resolved. Excess fluid volume 03/21/2013 12/26/19 16 Overview: --diuresis as needed --continue to monitor volume status CINV (chemotherapy-induced n ausea and vomiting) 03/17/2013 10/13/2015 Overview: --Resolved --Ativan PRN (none used) Peripheral neuropathy 03/16/20132015 Overview: --gabapentin 300mg TID with increased symptoms, bedtime dose of gabapentin increased to 600mg with improvement reported, continue DVT prophylaxis 03/16/2013 12/26/2015 Overview: --platelet count decreasing, d/c heparin SQ --encourage ambulation Insomnia 03/16/2013 12/26/2015 Overview: --ambien PRN at HS, with relief, but with vivid dreams, ambien d/c --restoril at 30mg PRN at HS with relief, continue Chronic chest pain 03/16/2013 6 Overview: --now resolved --since Hodgkin lymphoma diagnosis per patient Hospital discharge follow-up 03/16/2013 12/26/2015 Overview: --Patient will need to follow up with Dr. Unger after discharge Tachycardia 03/16/2013 12/26/2015 Overview: --patient taking atenolol 100mg BID at home, now BP running lower, decreased atenolol dose to 50mg BID with hypotension. --increase to 75mg BID, d/t tachycardia(HRs >110 while afebrile), HR now controlled, continue --monitor closely Electrolyte and fluid disord ers not elsewhere classified 02/16/2013 12/26/2015 DISPOSITION AND FOLLOW-UP 10/27/2012 Overview: 32 yo female from [place], [place]. Family involved with care, at bedside. plan to discharge patient home - will arrange with case management for post op care as needed - follow up in OPD in 7-10 days Post-op pain 10/27/2012 12/26/2015 Overview: currently well controlled with [employer] REPRESENTATIVE. will start PO pain meds today 10/27. tolerating percocet, pain relatively well controlled. Hodgkin's disease with nodular sclerosis 05/27/2012 12/26/2015 Overview: Oncology history (per Dr. 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 Hodgkin's disease, unspecified 02/05/2012 05/11/2014 Vaginal bleeding 12/26/2015 Overview: --likely from thrombocytopenia. No menses in prior 8 months. Scant amount reported on 03/29 and 03/30, now resolved --monitor bleeding by counting pads --should f/u with her [employer] provider after BMT Premature menopause 12/26/19 16 Postmenopausal atrophic vaginitis 12/26/2015 Dyspareunia 12/26/2015 documented as of this encounter (statuses as of 10/18/2022) [facility]01-26[facility]2018 History of Past illness Narrative* Problem Noted Date Diagnosed Date Resolved Date Menorrhagia with regular cycle 03/15/2017 01/01/2018 Overview: Added automatically from request for surgery [id number] History of pulmonary embolism 04/25/2016 01/01/2018 Neoplastic (malignant) related fatigue 04/25/2016 01/01/2018 Hidradenitis suppurativa 01/17/2016 Vitamin D deficiency 06/09/2015 016 HyperCKemia 05/06/2015 12/26/2015 Elevated aldolase level 05/06/2015 11/08/2015 Chronic pain of both knees 05/06/2015 1 02/24/2015 Pain in joint, multiple sites 05/06/2015 12/26/2015 Myalgia 05/06/2015 12/26/2015 Fatigue 05/06/2015 12/26/2015 Malaise and fatigue 03/24/2015 12/26/19 16 Gastroesophageal reflux dise ase without esophagitis 02/23/2015 12/26/2015 Laryngitis 02/23/2015 12/26/2015 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 10/28/2014 12/26/2015 Papanicolaou smear of cervix with low grade squamous intraepithelial lesion (LGSIL) 10/24/2014 12/25/2019 Pain in joint, ankle and foot 09/27/2014 12/26/2015 ASCUS favor dysplasia 09/18/20142015 Visit for gynecologic examination 09/07/2014 12/26/2015 Postmenopausal HRT (hormone replacement therapy) 08/18/2014 12/26/2015 Overview: offered Gait abnormality 07/22/2014 12/26/2015 Weakness of both legs 07/22/20142015 Sprain of ankle, left 06/29/20142015 PCP (pneumocystis jiroveci pneumonia) 06/03/2014 12/26/2015 Acute respiratory failure with hypoxemia 05/11/2014 12/26/2015 Overview: Increased O2 requirement overnight (2L to 5L) - bronchoscopy with BAL/TBLB tomorrow 8 AM. - NPO from midnight - hold tonight dose of lovenox. Radiation pneumonitis 05/11/20142015 Overview: 40 mg prednisone daily Immunodeficiency with predom inant T-cell defect, unspecified 03/11/2014 12/26/2015 Urgency of micturation 03/04/201412/25 Urinary frequency 03/04/2014 12/26/2015 Arm pain, left 07/06/2013 12/26/2015 Back pain without radiation 07/06/2013 12/26/2015 Abnormal finding on imaging 07/06/2013 12/26/2015 Elevated sed rate 07/06/2013 12/26/2015 Hyperpigmentation of skin 03/31/2013 Overview: --resolved --bilateral breast tissue and axilla --order mycolog cream --monitor Diarrhea 03/31/2013 12/26/2015 Overview: - c diff pending Mucositis (ulcerative) due t o antineoplastic therapy 03/24/2013 12/26/2015 Overview: --improved --oxy prn --mouth care measures. Reflux 03/23/2013 12/26/2015 Overview: --improved with protonix Elevated LFTs 03/22/2013 12/26/2015 Overview: --increased AST ALT during chemo, resolved. Excess fluid volume 03/21/2013 12/26/19 16 Overview: --diuresis as needed --continue to monitor volume status CINV (chemotherapy-induced n ausea and vomiting) 03/17/2013 10/13/2015 Overview: --Resolved --Ativan PRN (none used) Peripheral neuropathy 03/16/20132015 Overview: --gabapentin 300mg TID with increased symptoms, bedtime dose of gabapentin increased to 600mg with improvement reported, continue DVT prophylaxis 03/16/2013 12/26/2015 Overview: --platelet count decreasing, d/c heparin SQ --encourage ambulation Insomnia 03/16/2013 12/26/2015 Overview: --ambien PRN at HS, with relief, but with vivid dreams, ambien d/c --restoril at 30mg PRN at HS with relief, continue Chronic chest pain 03/16/2013 6 Overview: --now resolved --since Hodgkin lymphoma diagnosis per patient Hospital discharge follow-up 03/16/2013 12/26/2015 Overview: --Patient will need to follow up with Dr. Unger after discharge Tachycardia 03/16/2013 12/26/2015 Overview: --patient taking atenolol 100mg BID at home, now BP running lower, decreased atenolol dose to 50mg BID with hypotension. --increase to 75mg BID, d/t tachycardia(HRs >110 while afebrile), HR now controlled, continue --monitor closely Electrolyte and fluid disord ers not elsewhere classified 02/16/2013 12/26/2015 DISPOSITION AND FOLLOW-UP 10/27/2012 Overview: 32 yo female from [place], [place]. Family involved with care, at bedside. plan to discharge patient home - will arrange with case management for post op care as needed - follow up in OPD in 7-10 days Post-op pain 10/27/2012 12/26/2015 Overview: currently well controlled with [employer] REPRESENT[employer]IVE. will start PO pain meds today 10/27. tolerating percocet, pain relatively well controlled. Hodgkin's disease with nodular sclerosis 05/27/2012 12/26/2015 Overview: Oncology history (per Dr. 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 Hodgkin's disease, unspecified 02/05/2012 05/11/2014 Vaginal bleeding 12/26/2015 Overview: --likely from thrombocytopenia. No menses in prior 8 months. Scant amount reported on 03/29 and 03/30, now resolved --monitor bleeding by counting pads --should f/u with her [employer] provider after BMT Premature menopause 12/26/19 16 Postmenopausal atrophic vaginitis 12/26/2015 Dyspareunia 12/26/2015 documented as of this encounter (statuses as of 10/18/2022) [facility] History of Past illness Narrative* Problem Noted Date Diagnosed Date Resolved Date Menorrhagia with regular cycle 03/15/2017 01/01/2018 Overview: Added automatically from request for surgery [id number] History of pulmonary embolism 04/25/2016 01/01/2018 Neoplastic (malignant) related fatigue 04/25/2016 01/01/2018 Hidradenitis suppurativa 01/17/2016 Vitamin D deficiency 06/09/2015 016 HyperCKemia 05/06/2015 12/26/2015 Elevated aldolase level 05/06/201508/2015 Chronic pain of both knees 05/06/2015 1 02/24/2015 Pain in joint, multiple sites 05/06/2015 12/26/2015 Myalgia 05/06/2015 12/26/2015 Fatigue 05/06/2015 12/26/2015 Malaise and fatigue 03/24/2015 12/26/19 16 Gastroesophageal reflux dise ase without esophagitis 02/23/2015 12/26/2015 Laryngitis 02/23/2015 12/26/2015 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 10/28/2014 12/26/2015 Papanicolaou smear of cervix with low grade squamous intraepithelial lesion (LGSIL) 10/24/2014 12/25/2019 Pain in joint, ankle and foot 09/27/2014 12/26/2015 ASCUS favor dysplasia 09/18/20142015 Visit for gynecologic examination 09/07/2014 12/26/2015 Postmenopausal HRT (hormone replacement therapy) 08/18/2014 12/26/2015 Overview: offered Gait abnormality 07/22/2014 12/26/2015 Weakness of both legs 07/22/20142015 Sprain of ankle, left 06/29/20142015 PCP (pneumocystis jiroveci pneumonia) 06/03/2014 12/26/2015 Acute respiratory failure with hypoxemia 05/11/2014 12/26/2015 Overview: Increased O2 requirement overnight (2L to 5L) - bronchoscopy with BAL/TBLB tomorrow 8 AM. - NPO from midnight - hold tonight dose of lovenox. Radiation pneumonitis 05/11/20142015 Overview: 40 mg prednisone daily Immunodeficiency with predom inant T-cell defect, unspecified 03/11/2014 12/26/2015 Urgency of micturation 03/04/201412/25 Urinary frequency 03/04/2014 12/26/2015 Arm pain, left 07/06/2013 12/26/2015 Back pain without radiation 07/06/2013 12/26/2015 Abnormal finding on imaging 07/06/2013 12/26/2015 Elevated sed rate 07/06/2013 12/26/2015 Hyperpigmentation of skin 03/31/2013 Overview: --resolved --bilateral breast tissue and axilla --order mycolog cream --monitor Diarrhea 03/31/2013 12/26/2015 Overview: - c diff pending Mucositis (ulcerative) due t o antineoplastic therapy 03/24/2013 12/26/2015 Overview: --improved --oxy prn --mouth care measures. Reflux 03/23/2013 12/26/2015 Overview: --improved with protonix Elevated LFTs 03/22/2013 12/26/2015 Overview: --increased AST ALT during chemo, resolved. Excess fluid volume 03/21/2013 12/26/19 16 Overview: --diuresis as needed --continue to monitor volume status CINV (chemotherapy-induced n ausea and vomiting) 03/17/2013 10/13/2015 Overview: --Resolved --Ativan PRN (none used) Peripheral neuropathy 03/16/20132015 Overview: --gabapentin 300mg TID with increased symptoms, bedtime dose of gabapentin increased to 600mg with improvement reported, continue DVT prophylaxis 03/16/2013 12/26/2015 Overview: --platelet count decreasing, d/c heparin SQ --encourage ambulation Insomnia 03/16/2013 12/26/2015 Overview: --ambien PRN at HS, with relief, but with vivid dreams, ambien d/c --restoril at 30mg PRN at HS with relief, continue Chronic chest pain 03/16/2013 6 Overview: --now resolved --since Hodgkin lymphoma diagnosis per patient Hospital discharge follow-up 03/16/2013 12/26/2015 Overview: --Patient will need to follow up with Dr. Unger after discharge Tachycardia 03/16/2013 12/26/2015 Overview: --patient taking atenolol 100mg BID at home, now BP running lower, decreased atenolol dose to 50mg BID with hypotension. --increase to 75mg BID, d/t tachycardia(HRs >110 while afebrile), HR now controlled, continue --monitor closely Electrolyte and fluid disord ers not elsewhere classified 02/16/2013 12/26/2015 DISPOSITION AND FOLLOW-UP 10/27/2012 Overview: 32 yo female from [place], [place]. Family involved with care, at bedside. plan to discharge patient home - will arrange with case management for post op care as needed - follow up in OPD in 7-10 days Post-op pain 10/27/2012 12/26/2015 Overview: currently well controlled with [employer] REPRESENT[employer]IVE. will start PO pain meds today 10/27. tolerating percocet, pain relatively well controlled. Hodgkin's disease with nodular sclerosis 05/27/2012 12/26/2015 Overview: Oncology history (per Dr. 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 Hodgkin's disease, unspecified 02/05/2012 05/11/2014 Vaginal bleeding 12/26/2015 Overview: --likely from thrombocytopenia. No menses in prior 8 months. Scant amount reported on 03/29 and 03/30, now resolved --monitor bleeding by counting pads --should f/u with her [employer] provider after BMT Premature menopause 12/26/19 16 Postmenopausal atrophic vaginitis 12/26/2015 Dyspareunia 12/26/2015 documented as of this encounter (statuses as of 10/19/2022) [facility] History of Past illness Narrative* Problem Noted Date Diagnosed Date Resolved Date Menorrhagia with regular cycle 03/15/2017 01/01/2018 Overview: Added automatically from request for surgery [id number] History of pulmonary embolism 04/25/2016 01/01/2018 Neoplastic (malignant) related fatigue 04/25/2016 01/01/2018 Hidradenitis suppurativa 01/17/2016 Vitamin D deficiency 06/09/2015 016 HyperCKemia 05/06/2015 12/26/2015 Elevated aldolase level 05/06/201508/2015 Chronic pain of both knees 05/06/2015 1 02/24/2015 Pain in joint, multiple sites 05/06/2015 12/26/2015 Myalgia 05/06/2015 12/26/2015 Fatigue 05/06/2015 12/26/2015 Malaise and fatigue 03/24/2015 12/26/19 16 Gastroesophageal reflux dise ase without esophagitis 02/23/2015 12/26/2015 Laryngitis 02/23/2015 12/26/2015 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 10/28/2014 12/26/2015 Papanicolaou smear of cervix with low grade squamous intraepithelial lesion (LGSIL) 10/24/2014 12/25/2019 Pain in joint, ankle and foot 09/27/2014 12/26/2015 ASCUS favor dysplasia 09/18/20142015 Visit for gynecologic examination 09/07/2014 12/26/2015 Postmenopausal HRT (hormone replacement therapy) 08/18/2014 12/26/2015 Overview: offered Gait abnormality 07/22/2014 12/26/2015 Weakness of both legs 07/22/20142015 Sprain of ankle, left 06/29/20142015 PCP (pneumocystis jiroveci pneumonia) 06/03/2014 12/26/2015 Acute respiratory failure with hypoxemia 05/11/2014 12/26/2015 Overview: Increased O2 requirement overnight (2L to 5L) - bronchoscopy with BAL/TBLB tomorrow 8 AM. - NPO from midnight - hold tonight dose of lovenox. Radiation pneumonitis 05/11/20142015 Overview: 40 mg prednisone daily Immunodeficiency with predom inant T-cell defect, unspecified 03/11/2014 12/26/2015 Urgency of micturation 03/04/201412/25 Urinary frequency 03/04/2014 12/26/2015 Arm pain, left 07/06/2013 12/26/2015 Back pain without radiation 07/06/2013 12/26/2015 Abnormal finding on imaging 07/06/2013 12/26/2015 Elevated sed rate 07/06/2013 12/26/2015 Hyperpigmentation of skin 03/31/2013 Overview: --resolved --bilateral breast tissue and axilla --order mycolog cream --monitor Diarrhea 03/31/2013 12/26/2015 Overview: - c diff pending Mucositis (ulcerative) due t o antineoplastic therapy 03/24/2013 12/26/2015 Overview: --improved --oxy prn --mouth care measures. Reflux 03/23/2013 12/26/2015 Overview: --improved with protonix Elevated LFTs 03/22/2013 12/26/2015 Overview: --increased AST ALT during chemo, resolved. Excess fluid volume 03/21/2013 12/26/19 16 Overview: --diuresis as needed --continue to monitor volume status CINV (chemotherapy-induced n ausea and vomiting) 03/17/2013 10/13/2015 Overview: --Resolved --Ativan PRN (none used) Peripheral neuropathy 03/16/20132015 Overview: --gabapentin 300mg TID with increased symptoms, bedtime dose of gabapentin increased to 600mg with improvement reported, continue DVT prophylaxis 03/16/2013 12/26/2015 Overview: --platelet count decreasing, d/c heparin SQ --encourage ambulation Insomnia 03/16/2013 12/26/2015 Overview: --ambien PRN at HS, with relief, but with vivid dreams, ambien d/c --restoril at 30mg PRN at HS with relief, continue Chronic chest pain 03/16/2013 6 Overview: --now resolved --since Hodgkin lymphoma diagnosis per patient Hospital discharge follow-up 03/16/2013 12/26/2015 Overview: --Patient will need to follow up with Dr. Unger after discharge Tachycardia 03/16/2013 12/26/2015 Overview: --patient taking atenolol 100mg BID at home, now BP running lower, decreased atenolol dose to 50mg BID with hypotension. --increase to 75mg BID, d/t tachycardia(HRs >110 while afebrile), HR now controlled, continue --monitor closely Electrolyte and fluid disord ers not elsewhere classified 02/16/2013 12/26/2015 DISPOSITION AND FOLLOW-UP 10/27/2012 Overview: 32 yo female from [place], [place]. Family involved with care, at bedside. plan to discharge patient home - will arrange with case management for post op care as needed - follow up in OPD in 7-10 days Post-op pain 10/27/2012 12/26/2015 Overview: currently well controlled with [employer] REPRESENT[employer]IVE. will start PO pain meds today 10/27. tolerating percocet, pain relatively well controlled. Hodgkin's disease with nodular sclerosis 05/27/2012 12/26/2015 Overview: Oncology history (per Dr. 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 Hodgkin's disease, unspecified 02/05/2012 05/11/2014 Vaginal bleeding 12/26/2015 Overview: --likely from thrombocytopenia. No menses in prior 8 months. Scant amount reported on 03/29 and 03/30, now resolved --monitor bleeding by counting pads --should f/u with her [employer] provider after BMT Premature menopause 12/26/19 16 Postmenopausal atrophic vaginitis 12/26/2015 Dyspareunia 12/26/2015 documented as of this encounter (statuses as of 10/24/2022) [facility] History of Past illness Narrative* Problem Noted Date Diagnosed Date Resolved Date Menorrhagia with regular cycle 03/15/2017 01/01/2018 Overview: Added automatically from request for surgery [id number] History of pulmonary embolism 04/25/2016 01/01/2018 Neoplastic (malignant) related fatigue 04/25/2016 01/01/2018 Hidradenitis suppurativa 01/17/2016 Vitamin D deficiency 06/09/2015 016 HyperCKemia 05/06/2015 12/26/2015 Elevated aldolase level 05/06/2015 11/0 08/2015 Chronic pain of both knees 05/06/2015 1 02/24/2015 Pain in joint, multiple sites 05/06/2015 12/26/2015 Myalgia 05/06/2015 12/26/2015 Fatigue 05/06/2015 12/26/2015 Malaise and fatigue 03/24/2015 12/26/19 16 Gastroesophageal reflux dise ase without esophagitis 02/23/2015 12/26/2015 Laryngitis 02/23/2015 12/26/2015 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 10/28/2014 12/26/2015 Papanicolaou smear of cervix with low grade squamous intraepithelial lesion (LGSIL) 10/24/2014 12/25/2019 Pain in joint, ankle and foot 09/27/2014 12/26/2015 ASCUS favor dysplasia 09/18/20142015 Visit for gynecologic examination 09/07/2014 12/26/2015 Postmenopausal HRT (hormone replacement therapy) 08/18/2014 12/26/2015 Overview: offered Gait abnormality 07/22/2014 12/26/2015 Weakness of both legs 07/22/20142015 Sprain of ankle, left 06/29/20142015 PCP (pneumocystis jiroveci pneumonia) 06/03/2014 12/26/2015 Acute respiratory failure with hypoxemia 05/11/2014 12/26/2015 Overview: Increased O2 requirement overnight (2L to 5L) - bronchoscopy with BAL/TBLB tomorrow 8 AM. - NPO from midnight - hold tonight dose of lovenox. Radiation pneumonitis 05/11/20142015 Overview: 40 mg prednisone daily Immunodeficiency with predom inant T-cell defect, unspecified 03/11/2014 12/26/2015 Urgency of micturation 03/04/201412/25 Urinary frequency 03/04/2014 12/26/2015 Arm pain, left 07/06/2013 12/26/2015 Back pain without radiation 07/06/2013 12/26/2015 Abnormal finding on imaging 07/06/2013 12/26/2015 Elevated sed rate 07/06/2013 12/26/2015 Hyperpigmentation of skin 03/31/2013 Overview: --resolved --bilateral breast tissue and axilla --order mycolog cream --monitor Diarrhea 03/31/2013 12/26/2015 Overview: - c diff pending Mucositis (ulcerative) due t o antineoplastic therapy 03/24/2013 12/26/2015 Overview: --improved --oxy prn --mouth care measures. Reflux 03/23/2013 12/26/2015 Overview: --improved with protonix Elevated LFTs 03/22/2013 12/26/2015 Overview: --increased AST ALT during chemo, resolved. Excess fluid volume 03/21/2013 12/26/19 16 Overview: --diuresis as needed --continue to monitor volume status CINV (chemotherapy-induced n ausea and vomiting) 03/17/2013 10/13/2015 Overview: --Resolved --Ativan PRN (none used) Peripheral neuropathy 03/16/20132015 Overview: --gabapentin 300mg TID with increased symptoms, bedtime dose of gabapentin increased to 600mg with improvement reported, continue DVT prophylaxis 03/16/2013 12/26/2015 Overview: --platelet count decreasing, d/c heparin SQ --encourage ambulation Insomnia 03/16/2013 12/26/2015 Overview: --ambien PRN at HS, with relief, but with vivid dreams, ambien d/c --restoril at 30mg PRN at HS with relief, continue Chronic chest pain 03/16/2013 6 Overview: --now resolved --since Hodgkin lymphoma diagnosis per patient Hospital discharge follow-up 03/16/2013 12/26/2015 Overview: --Patient will need to follow up with Dr. Unger after discharge Tachycardia 03/16/2013 12/26/2015 Overview: --patient taking atenolol 100mg BID at home, now BP running lower, decreased atenolol dose to 50mg BID with hypotension. --increase to 75mg BID, d/t tachycardia(HRs >110 while afebrile), HR now controlled, continue --monitor closely Electrolyte and fluid disord ers not elsewhere classified 02/16/2013 12/26/2015 DISPOSITION AND FOLLOW-UP 10/27/2012 Overview: 32 yo female from [place], [place]. Family involved with care, at bedside. plan to discharge patient home - will arrange with case management for post op care as needed - follow up in OPD in 7-10 days Post-op pain 10/27/2012 12/26/2015 Overview: currently well controlled with [employer] REPRESENTATIVE. will start PO pain meds today 10/27. tolerating percocet, pain relatively well controlled. Hodgkin's disease with nodular sclerosis 05/27/2012 12/26/2015 Overview: Oncology history (per Dr. 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 Hodgkin's disease, unspecified 02/05/2012 05/11/2014 Vaginal bleeding 12/26/2015 Overview: --likely from thrombocytopenia. No menses in prior 8 months. Scant amount reported on 03/29 and 03/30, now resolved --monitor bleeding by counting pads --should f/u with her [employer] provider after BMT Premature menopause 12/26/19 16 Postmenopausal atrophic vaginitis 12/26/2015 Dyspareunia 12/26/2015 documented as of this encounter (statuses as of 10/26/2022) [facility] History of Past illness Narrative* Problem Noted Date Diagnosed Date Resolved Date Menorrhagia with regular cycle 03/15/2017 01/01/2018 Overview: Added automatically from request for surgery [id number] History of pulmonary embolism 04/25/2016 01/01/2018 Neoplastic (malignant) related fatigue 04/25/2016 01/01/2018 Hidradenitis suppurativa 01/17/2016 Vitamin D deficiency 06/09/2015 016 HyperCKemia 05/06/2015 12/26/2015 Elevated aldolase level 05/06/201508/2015 Chronic pain of both knees 05/06/2015 1 02/24/2015 Pain in joint, multiple sites 05/06/2015 12/26/2015 Myalgia 05/06/2015 12/26/2015 Fatigue 05/06/2015 12/26/2015 Malaise and fatigue 03/24/2015 12/26/19 16 Gastroesophageal reflux dise ase without esophagitis 02/23/2015 12/26/2015 Laryngitis 02/23/2015 12/26/2015 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 10/28/2014 12/26/2015 Papanicolaou smear of cervix with low grade squamous intraepithelial lesion (LGSIL) 10/24/2014 12/25/2019 Pain in joint, ankle and foot 09/27/2014 12/26/2015 ASCUS favor dysplasia 09/18/20142015 Visit for gynecologic examination 09/07/2014 12/26/2015 Postmenopausal HRT (hormone replacement therapy) 08/18/2014 12/26/2015 Overview: offered Gait abnormality 07/22/2014 12/26/2015 Weakness of both legs 07/22/20142015 Sprain of ankle, left 06/29/20142015 PCP (pneumocystis jiroveci pneumonia) 06/03/2014 12/26/2015 Acute respiratory failure with hypoxemia 05/11/2014 12/26/2015 Overview: Increased O2 requirement overnight (2L to 5L) - bronchoscopy with BAL/TBLB tomorrow 8 AM. - NPO from midnight - hold tonight dose of lovenox. Radiation pneumonitis 05/11/20142015 Overview: 40 mg prednisone daily Immunodeficiency with predom inant T-cell defect, unspecified 03/11/2014 12/26/2015 Urgency of micturation 03/04/201412/25 Urinary frequency 03/04/2014 12/26/2015 Arm pain, left 07/06/2013 12/26/2015 Back pain without radiation 07/06/2013 12/26/2015 Abnormal finding on imaging 07/06/2013 12/26/2015 Elevated sed rate 07/06/2013 12/26/2015 Hyperpigmentation of skin 03/31/2013 Overview: --resolved --bilateral breast tissue and axilla --order mycolog cream --monitor Diarrhea 03/31/2013 12/26/2015 Overview: - c diff pending Mucositis (ulcerative) due t o antineoplastic therapy 03/24/2013 12/26/2015 Overview: --improved --oxy prn --mouth care measures. Reflux 03/23/2013 12/26/2015 Overview: --improved with protonix Elevated LFTs 03/22/2013 12/26/2015 Overview: --increased AST ALT during chemo, resolved. Excess fluid volume 03/21/2013 12/26/19 16 Overview: --diuresis as needed --continue to monitor volume status CINV (chemotherapy-induced n ausea and vomiting) 03/17/2013 10/13/2015 Overview: --Resolved --Ativan PRN (none used) Peripheral neuropathy 03/16/20132015 Overview: --gabapentin 300mg TID with increased symptoms, bedtime dose of gabapentin increased to 600mg with improvement reported, continue DVT prophylaxis 03/16/2013 12/26/2015 Overview: --platelet count decreasing, d/c heparin SQ --encourage ambulation Insomnia 03/16/2013 12/26/2015 Overview: --ambien PRN at HS, with relief, but with vivid dreams, ambien d/c --restoril at 30mg PRN at HS with relief, continue Chronic chest pain 03/16/2013 6 Overview: --now resolved --since Hodgkin lymphoma diagnosis per patient Hospital discharge follow-up 03/16/2013 12/26/2015 Overview: --Patient will need to follow up with Dr. Unger after discharge Tachycardia 03/16/2013 12/26/2015 Overview: --patient taking atenolol 100mg BID at home, now BP running lower, decreased atenolol dose to 50mg BID with hypotension. --increase to 75mg BID, d/t tachycardia(HRs >110 while afebrile), HR now controlled, continue --monitor closely Electrolyte and fluid disord ers not elsewhere classified 02/16/2013 12/26/2015 DISPOSITION AND FOLLOW-UP 10/27/2012 Overview: 32 yo female from [place], [place]. Family involved with care, at bedside. plan to discharge patient home - will arrange with case management for post op care as needed - follow up in OPD in 7-10 days Post-op pain 10/27/2012 12/26/2015 Overview: currently well controlled with [employer] REPRESENTATIVE. will start PO pain meds today 10/27. tolerating percocet, pain relatively well controlled. Hodgkin's disease with nodular sclerosis 05/27/2012 12/26/2015 Overview: Oncology history (per Dr. 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 Hodgkin's disease, unspecified 02/05/2012 05/11/2014 Vaginal bleeding 12/26/2015 Overview: --likely from thrombocytopenia. No menses in prior 8 months. Scant amount reported on 03/29 and 03/30, now resolved --monitor bleeding by counting pads --should f/u with her [employer] provider after BMT Premature menopause 12/26/19 16 Postmenopausal atrophic vaginitis 12/26/2015 Dyspareunia 12/26/2015 documented as of this encounter (statuses as of 11/06/2022) [facility]01-26-2018 History of Past illness Narrative* Problem Noted Date Diagnosed Date Resolved Date Menorrhagia with regular cycle 03/15/2017 01/01/2018 Overview: Added automatically from request for surgery [id number] History of pulmonary embolism 04/25/2016 01/01/2018 Neoplastic (malignant) related fatigue 04/25/2016 01/01/2018 Hidradenitis suppurativa 01/17/2016 Vitamin D deficiency 06/09/2015 016 HyperCKemia 05/06/2015 12/26/2015 Elevated aldolase level 05/06/201508/2015 Chronic pain of both knees 05/06/2015 1 02/24/2015 Pain in joint, multiple sites 05/06/2015 12/26/2015 Myalgia 05/06/2015 12/26/2015 Fatigue 05/06/2015 12/26/2015 Malaise and fatigue 03/24/2015 12/26/19 16 Gastroesophageal reflux dise ase without esophagitis 02/23/2015 12/26/2015 Laryngitis 02/23/2015 12/26/2015 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 10/28/2014 12/26/2015 Papanicolaou smear of cervix with low grade squamous intraepithelial lesion (LGSIL) 10/24/2014 12/25/2019 Pain in joint, ankle and foot 09/27/2014 12/26/2015 ASCUS favor dysplasia 09/18/20142015 Visit for gynecologic examination 09/07/2014 12/26/2015 Postmenopausal HRT (hormone replacement therapy) 08/18/2014 12/26/2015 Overview: offered Gait abnormality 07/22/2014 12/26/2015 Weakness of both legs 07/22/20142015 Sprain of ankle, left 06/29/20142015 PCP (pneumocystis jiroveci pneumonia) 06/03/2014 12/26/2015 Acute respiratory failure with hypoxemia 05/11/2014 12/26/2015 Overview: Increased O2 requirement overnight (2L to 5L) - bronchoscopy with BAL/TBLB tomorrow 8 AM. - NPO from midnight - hold tonight dose of lovenox. Radiation pneumonitis 05/11/20142015 Overview: 40 mg prednisone daily Immunodeficiency with predom inant T-cell defect, unspecified 03/11/2014 12/26/2015 Urgency of micturation 03/04/201412/25 Urinary frequency 03/04/2014 12/26/2015 Arm pain, left 07/06/2013 12/26/2015 Back pain without radiation 07/06/2013 12/26/2015 Abnormal finding on imaging 07/06/2013 12/26/2015 Elevated sed rate 07/06/2013 12/26/2015 Hyperpigmentation of skin 03/31/2013 Overview: --resolved --bilateral breast tissue and axilla --order mycolog cream --monitor Diarrhea 03/31/2013 12/26/2015 Overview: - c diff pending Mucositis (ulcerative) due t o antineoplastic therapy 03/24/2013 12/26/2015 Overview: --improved --oxy prn --mouth care measures. Reflux 03/23/2013 12/26/2015 Overview: --improved with protonix Elevated LFTs 03/22/2013 12/26/2015 Overview: --increased AST ALT during chemo, resolved. Excess fluid volume 03/21/2013 12/26/19 16 Overview: --diuresis as needed --continue to monitor volume status CINV (chemotherapy-induced n ausea and vomiting) 03/17/2013 10/13/2015 Overview: --Resolved --Ativan PRN (none used) Peripheral neuropathy 03/16/20132015 Overview: --gabapentin 300mg TID with increased symptoms, bedtime dose of gabapentin increased to 600mg with improvement reported, continue DVT prophylaxis 03/16/2013 12/26/2015 Overview: --platelet count decreasing, d/c heparin SQ --encourage ambulation Insomnia 03/16/2013 12/26/2015 Overview: --ambien PRN at HS, with relief, but with vivid dreams, ambien d/c --restoril at 30mg PRN at HS with relief, continue Chronic chest pain 03/16/2013 6 Overview: --now resolved --since Hodgkin lymphoma diagnosis per patient Hospital discharge follow-up 03/16/2013 12/26/2015 Overview: --Patient will need to follow up with Dr. Unger after discharge Tachycardia 03/16/2013 12/26/2015 Overview: --patient taking atenolol 100mg BID at home, now BP running lower, decreased atenolol dose to 50mg BID with hypotension. --increase to 75mg BID, d/t tachycardia(HRs >110 while afebrile), HR now controlled, continue --monitor closely Electrolyte and fluid disord ers not elsewhere classified 02/16/2013 12/26/2015 DISPOSITION AND FOLLOW-UP 10/27/2012 Overview: 32 yo female from [place], [place]. Family involved with care, at bedside. plan to discharge patient home - will arrange with case management for post op care as needed - follow up in OPD in 7-10 days Post-op pain 10/27/2012 12/26/2015 Overview: currently well controlled with [employer] REPRESENT[employer]IVE. will start PO pain meds today 10/27. tolerating percocet, pain relatively well controlled. Hodgkin's disease with nodular sclerosis 05/27/2012 12/26/2015 Overview: Oncology history (per Dr. 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 Hodgkin's disease, unspecified 02/05/2012 05/11/2014 Vaginal bleeding 12/26/2015 Overview: --likely from thrombocytopenia. No menses in prior 8 months. Scant amount reported on 03/29 and 03/30, now resolved --monitor bleeding by counting pads --should f/u with her [employer] provider after BMT Premature menopause 12/26/19 16 Postmenopausal atrophic vaginitis 12/26/2015 Dyspareunia 12/26/2015 documented as of this encounter (statuses as of 11/11/2022) [facility]01-[facility] History of Past illness Narrative* Problem Noted Date Diagnosed Date Resolved Date Menorrhagia with regular cycle 03/15/2017 01/01/2018 Overview: Added automatically from request for surgery [id number] History of pulmonary embolism 04/25/2016 01/01/2018 Neoplastic (malignant) related fatigue 04/25/2016 01/01/2018 Hidradenitis suppurativa 01/17/2016 Vitamin D deficiency 06/09/2015 016 HyperCKemia 05/06/2015 12/26/2015 Elevated aldolase level 05/06/2015 11/0 08/2015 Chronic pain of both knees 05/06/2015 1 02/24/2015 Pain in joint, multiple sites 05/06/2015 12/26/2015 Myalgia 05/06/2015 12/26/2015 Fatigue 05/06/2015 12/26/2015 Malaise and fatigue 03/24/2015 12/26/19 16 Gastroesophageal reflux dise ase without esophagitis 02/23/2015 12/26/2015 Laryngitis 02/23/2015 12/26/2015 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 10/28/2014 12/26/2015 Papanicolaou smear of cervix with low grade squamous intraepithelial lesion (LGSIL) 10/24/2014 12/25/2019 Pain in joint, ankle and foot 09/27/2014 12/26/2015 ASCUS favor dysplasia 09/18/20142015 Visit for gynecologic examination 09/07/2014 12/26/2015 Postmenopausal HRT (hormone replacement therapy) 08/18/2014 12/26/2015 Overview: offered Gait abnormality 07/22/2014 12/26/2015 Weakness of both legs 07/22/20142015 Sprain of ankle, left 06/29/20142015 PCP (pneumocystis jiroveci pneumonia) 06/03/2014 12/26/2015 Acute respiratory failure with hypoxemia 05/11/2014 12/26/2015 Overview: Increased O2 requirement overnight (2L to 5L) - bronchoscopy with BAL/TBLB tomorrow 8 AM. - NPO from midnight - hold tonight dose of lovenox. Radiation pneumonitis 05/11/20142015 Overview: 40 mg prednisone daily Immunodeficiency with predom inant T-cell defect, unspecified 03/11/2014 12/26/2015 Urgency of micturation 03/04/201412/25 Urinary frequency 03/04/2014 12/26/2015 Arm pain, left 07/06/2013 12/26/2015 Back pain without radiation 07/06/2013 12/26/2015 Abnormal finding on imaging 07/06/2013 12/26/2015 Elevated sed rate 07/06/2013 12/26/2015 Hyperpigmentation of skin 03/31/2013 Overview: --resolved --bilateral breast tissue and axilla --order mycolog cream --monitor Diarrhea 03/31/2013 12/26/2015 Overview: - c diff pending Mucositis (ulcerative) due t o antineoplastic therapy 03/24/2013 12/26/2015 Overview: --improved --oxy prn --mouth care measures. Reflux 03/23/2013 12/26/2015 Overview: --improved with protonix Elevated LFTs 03/22/2013 12/26/2015 Overview: --increased AST ALT during chemo, resolved. Excess fluid volume 03/21/2013 12/26/19 16 Overview: --diuresis as needed --continue to monitor volume status CINV (chemotherapy-induced n ausea and vomiting) 03/17/2013 10/13/2015 Overview: --Resolved --Ativan PRN (none used) Peripheral neuropathy 03/16/20132015 Overview: --gabapentin 300mg TID with increased symptoms, bedtime dose of gabapentin increased to 600mg with improvement reported, continue DVT prophylaxis 03/16/2013 12/26/2015 Overview: --platelet count decreasing, d/c heparin SQ --encourage ambulation Insomnia 03/16/2013 12/26/2015 Overview: --ambien PRN at HS, with relief, but with vivid dreams, ambien d/c --restoril at 30mg PRN at HS with relief, continue Chronic chest pain 03/16/2013 6 Overview: --now resolved --since Hodgkin lymphoma diagnosis per patient Hospital discharge follow-up 03/16/2013 12/26/2015 Overview: --Patient will need to follow up with Dr. Unger after discharge Tachycardia 03/16/2013 12/26/2015 Overview: --patient taking atenolol 100mg BID at home, now BP running lower, decreased atenolol dose to 50mg BID with hypotension. --increase to 75mg BID, d/t tachycardia(HRs >110 while afebrile), HR now controlled, continue --monitor closely Electrolyte and fluid disord ers not elsewhere classified 02/16/2013 12/26/2015 DISPOSITION AND FOLLOW-UP 10/27/2012 Overview: 32 yo female from [place], [place]. Family involved with care, at bedside. plan to discharge patient home - will arrange with case management for post op care as needed - follow up in OPD in 7-10 days Post-op pain 10/27/2012 12/26/2015 Overview: currently well controlled with [employer] REPRESENT[employer]IVE. will start PO pain meds today 10/27. tolerating percocet, pain relatively well controlled. Hodgkin's disease with nodular sclerosis 05/27/2012 12/26/2015 Overview: Oncology history (per Dr. 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 Hodgkin's disease, unspecified 02/05/2012 05/11/2014 Vaginal bleeding 12/26/2015 Overview: --likely from thrombocytopenia. No menses in prior 8 months. Scant amount reported on 03/29 and 03/30, now resolved --monitor bleeding by counting pads --should f/u with her [employer] provider after BMT Premature menopause 12/26/19 16 Postmenopausal atrophic vaginitis 12/26/2015 Dyspareunia 12/26/2015 documented as of this encounter (statuses as of 11/13/2022) [facility] History of Past illness Narrative* Problem Noted Date Diagnosed Date Resolved Date Menorrhagia with regular cycle 03/15/2017 01/01/2018 Overview: Added automatically from request for surgery [id number] History of pulmonary embolism 04/25/2016 01/01/2018 Neoplastic (malignant) related fatigue 04/25/2016 01/01/2018 Hidradenitis suppurativa 01/17/2016 Vitamin D deficiency 06/09/2015 016 HyperCKemia 05/06/2015 12/26/2015 Elevated aldolase level 05/06/201508/2015 Chronic pain of both knees 05/06/2015 1 02/24/2015 Pain in joint, multiple sites 05/06/2015 12/26/2015 Myalgia 05/06/2015 12/26/2015 Fatigue 05/06/2015 12/26/2015 Malaise and fatigue 03/24/2015 12/26/19 16 Gastroesophageal reflux dise ase without esophagitis 02/23/2015 12/26/2015 Laryngitis 02/23/2015 12/26/2015 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 10/28/2014 12/26/2015 Papanicolaou smear of cervix with low grade squamous intraepithelial lesion (LGSIL) 10/24/2014 12/25/2019 Pain in joint, ankle and foot 09/27/2014 12/26/2015 ASCUS favor dysplasia 09/18/20142015 Visit for gynecologic examination 09/07/2014 12/26/2015 Postmenopausal HRT (hormone replacement therapy) 08/18/2014 12/26/2015 Overview: offered Gait abnormality 07/22/2014 12/26/2015 Weakness of both legs 07/22/20142015 Sprain of ankle, left 06/29/20142015 PCP (pneumocystis jiroveci pneumonia) 06/03/2014 12/26/2015 Acute respiratory failure with hypoxemia 05/11/2014 12/26/2015 Overview: Increased O2 requirement overnight (2L to 5L) - bronchoscopy with BAL/TBLB tomorrow 8 AM. - NPO from midnight - hold tonight dose of lovenox. Radiation pneumonitis 05/11/20142015 Overview: 40 mg prednisone daily Immunodeficiency with predom inant T-cell defect, unspecified 03/11/2014 12/26/2015 Urgency of micturation 03/04/201412/25 Urinary frequency 03/04/2014 12/26/2015 Arm pain, left 07/06/2013 12/26/2015 Back pain without radiation 07/06/2013 12/26/2015 Abnormal finding on imaging 07/06/2013 12/26/2015 Elevated sed rate 07/06/2013 12/26/2015 Hyperpigmentation of skin 03/31/2013 Overview: --resolved --bilateral breast tissue and axilla --order mycolog cream --monitor Diarrhea 03/31/2013 12/26/2015 Overview: - c diff pending Mucositis (ulcerative) due t o antineoplastic therapy 03/24/2013 12/26/2015 Overview: --improved --oxy prn --mouth care measures. Reflux 03/23/2013 12/26/2015 Overview: --improved with protonix Elevated LFTs 03/22/2013 12/26/2015 Overview: --increased AST ALT during chemo, resolved. Excess fluid volume 03/21/2013 12/26/19 16 Overview: --diuresis as needed --continue to monitor volume status CINV (chemotherapy-induced n ausea and vomiting) 03/17/2013 10/13/2015 Overview: --Resolved --Ativan PRN (none used) Peripheral neuropathy 03/16/20132015 Overview: --gabapentin 300mg TID with increased symptoms, bedtime dose of gabapentin increased to 600mg with improvement reported, continue DVT prophylaxis 03/16/2013 12/26/2015 Overview: --platelet count decreasing, d/c heparin SQ --encourage ambulation Insomnia 03/16/2013 12/26/2015 Overview: --ambien PRN at HS, with relief, but with vivid dreams, ambien d/c --restoril at 30mg PRN at HS with relief, continue Chronic chest pain 03/16/2013 6 Overview: --now resolved --since Hodgkin lymphoma diagnosis per patient Hospital discharge follow-up 03/16/2013 12/26/2015 Overview: --Patient will need to follow up with Dr. Unger after discharge Tachycardia 03/16/2013 12/26/2015 Overview: --patient taking atenolol 100mg BID at home, now BP running lower, decreased atenolol dose to 50mg BID with hypotension. --increase to 75mg BID, d/t tachycardia(HRs >110 while afebrile), HR now controlled, continue --monitor closely Electrolyte and fluid disord ers not elsewhere classified 02/16/2013 12/26/2015 DISPOSITION AND FOLLOW-UP 10/27/2012 Overview: 32 yo female from [place], [place]. Family involved with care, at bedside. plan to discharge patient home - will arrange with case management for post op care as needed - follow up in OPD in 7-10 days Post-op pain 10/27/2012 12/26/2015 Overview: currently well controlled with [employer] REPRESENT[employer]IVE. will start PO pain meds today 10/27. tolerating percocet, pain relatively well controlled. Hodgkin's disease with nodular sclerosis 05/27/2012 12/26/2015 Overview: Oncology history (per Dr. 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 Hodgkin's disease, unspecified 02/05/2012 05/11/2014 Vaginal bleeding 12/26/2015 Overview: --likely from thrombocytopenia. No menses in prior 8 months. Scant amount reported on 03/29 and 03/30, now resolved --monitor bleeding by counting pads --should f/u with her [employer] provider after BMT Premature menopause 12/26/19 16 Postmenopausal atrophic vaginitis 12/26/2015 Dyspareunia 12/26/2015 documented as of this encounter (statuses as of 11/26/2022) [facility] History of Past illness Narrative* Problem Noted Date Diagnosed Date Resolved Date Menorrhagia with regular cycle 03/15/2017 01/01/2018 Overview: Added automatically from request for surgery [id number] History of pulmonary embolism 04/25/2016 01/01/2018 Neoplastic (malignant) related fatigue 04/25/2016 01/01/2018 Hidradenitis suppurativa 01/17/2016 Vitamin D deficiency 06/09/2015 016 HyperCKemia 05/06/2015 12/26/2015 Elevated aldolase level 05/06/201508/2015 Chronic pain of both knees 05/06/2015 1 02/24/2015 Pain in joint, multiple sites 05/06/2015 12/26/2015 Myalgia 05/06/2015 12/26/2015 Fatigue 05/06/2015 12/26/2015 Malaise and fatigue 03/24/2015 12/26/19 16 Gastroesophageal reflux dise ase without esophagitis 02/23/2015 12/26/2015 Laryngitis 02/23/2015 12/26/2015 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 10/28/2014 12/26/2015 Papanicolaou smear of cervix with low grade squamous intraepithelial lesion (LGSIL) 10/24/2014 12/25/2019 Pain in joint, ankle and foot 09/27/2014 12/26/2015 ASCUS favor dysplasia 09/18/20142015 Visit for gynecologic examination 09/07/2014 12/26/2015 Postmenopausal HRT (hormone replacement therapy) 08/18/2014 12/26/2015 Overview: offered Gait abnormality 07/22/2014 12/26/2015 Weakness of both legs 07/22/20142015 Sprain of ankle, left 06/29/20142015 PCP (pneumocystis jiroveci pneumonia) 06/03/2014 12/26/2015 Acute respiratory failure with hypoxemia 05/11/2014 12/26/2015 Overview: Increased O2 requirement overnight (2L to 5L) - bronchoscopy with BAL/TBLB tomorrow 8 AM. - NPO from midnight - hold tonight dose of lovenox. Radiation pneumonitis 05/11/20142015 Overview: 40 mg prednisone daily Immunodeficiency with predom inant T-cell defect, unspecified 03/11/2014 12/26/2015 Urgency of micturation 03/04/201412/25 Urinary frequency 03/04/2014 12/26/2015 Arm pain, left 07/06/2013 12/26/2015 Back pain without radiation 07/06/2013 12/26/2015 Abnormal finding on imaging 07/06/2013 12/26/2015 Elevated sed rate 07/06/2013 12/26/2015 Hyperpigmentation of skin 03/31/2013 Overview: --resolved --bilateral breast tissue and axilla --order mycolog cream --monitor Diarrhea 03/31/2013 12/26/2015 Overview: - c diff pending Mucositis (ulcerative) due t o antineoplastic therapy 03/24/2013 12/26/2015 Overview: --improved --oxy prn --mouth care measures. Reflux 03/23/2013 12/26/2015 Overview: --improved with protonix Elevated LFTs 03/22/2013 12/26/2015 Overview: --increased AST ALT during chemo, resolved. Excess fluid volume 03/21/2013 12/26/19 16 Overview: --diuresis as needed --continue to monitor volume status CINV (chemotherapy-induced n ausea and vomiting) 03/17/2013 10/13/2015 Overview: --Resolved --Ativan PRN (none used) Peripheral neuropathy 03/16/20132015 Overview: --gabapentin 300mg TID with increased symptoms, bedtime dose of gabapentin increased to 600mg with improvement reported, continue DVT prophylaxis 03/16/2013 12/26/2015 Overview: --platelet count decreasing, d/c heparin SQ --encourage ambulation Insomnia 03/16/2013 12/26/2015 Overview: --ambien PRN at HS, with relief, but with vivid dreams, ambien d/c --restoril at 30mg PRN at HS with relief, continue Chronic chest pain 03/16/2013 6 Overview: --now resolved --since Hodgkin lymphoma diagnosis per patient Hospital discharge follow-up 03/16/2013 12/26/2015 Overview: --Patient will need to follow up with Dr. Unger after discharge Tachycardia 03/16/2013 12/26/2015 Overview: --patient taking atenolol 100mg BID at home, now BP running lower, decreased atenolol dose to 50mg BID with hypotension. --increase to 75mg BID, d/t tachycardia(HRs >110 while afebrile), HR now controlled, continue --monitor closely Electrolyte and fluid disord ers not elsewhere classified 02/16/2013 12/26/2015 DISPOSITION AND FOLLOW-UP 10/27/2012 Overview: 32 yo female from [place], [place]. Family involved with care, at bedside. plan to discharge patient home - will arrange with case management for post op care as needed - follow up in OPD in 7-10 days Post-op pain 10/27/2012 12/26/2015 Overview: currently well controlled with [employer] REPRESENTATIVE. will start PO pain meds today 10/27. tolerating percocet, pain relatively well controlled. Hodgkin's disease with nodular sclerosis 05/27/2012 12/26/2015 Overview: Oncology history (per Dr. 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 Hodgkin's disease, unspecified 02/05/2012 05/11/2014 Vaginal bleeding 12/26/2015 Overview: --likely from thrombocytopenia. No menses in prior 8 months. Scant amount reported on 03/29 and 03/30, now resolved --monitor bleeding by counting pads --should f/u with her [employer] provider after BMT Premature menopause 12/26/19 16 Postmenopausal atrophic vaginitis 12/26/2015 Dyspareunia 12/26/2015 documented as of this encounter (statuses as of 12/04/2022) [facility] History of Past illness Narrative* Problem Noted Date Diagnosed Date Resolved Date Menorrhagia with regular cycle 03/15/2017 01/01/2018 Overview: Added automatically from request for surgery [id number] History of pulmonary embolism 04/25/2016 01/01/2018 Neoplastic (malignant) related fatigue 04/25/2016 01/01/2018 Hidradenitis suppurativa 01/17/2016 Vitamin D deficiency 06/09/2015 016 HyperCKemia 05/06/2015 12/26/2015 Elevated aldolase level 05/06/201508/2015 Chronic pain of both knees 05/06/2015 1 02/24/2015 Pain in joint, multiple sites 05/06/2015 12/26/2015 Myalgia 05/06/2015 12/26/2015 Fatigue 05/06/2015 12/26/2015 Malaise and fatigue 03/24/2015 12/26/19 16 Gastroesophageal reflux dise ase without esophagitis 02/23/2015 12/26/2015 Laryngitis 02/23/2015 12/26/2015 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 10/28/2014 12/26/2015 Papanicolaou smear of cervix with low grade squamous intraepithelial lesion (LGSIL) 10/24/2014 12/25/2019 Pain in joint, ankle and foot 09/27/2014 12/26/2015 ASCUS favor dysplasia 09/18/20142015 Visit for gynecologic examination 09/07/2014 12/26/2015 Postmenopausal HRT (hormone replacement therapy) 08/18/2014 12/26/2015 Overview: offered Gait abnormality 07/22/2014 12/26/2015 Weakness of both legs 07/22/20142015 Sprain of ankle, left 06/29/20142015 PCP (pneumocystis jiroveci pneumonia) 06/03/2014 12/26/2015 Acute respiratory failure with hypoxemia 05/11/2014 12/26/2015 Overview: Increased O2 requirement overnight (2L to 5L) - bronchoscopy with BAL/TBLB tomorrow 8 AM. - NPO from midnight - hold tonight dose of lovenox. Radiation pneumonitis 05/11/20142015 Overview: 40 mg prednisone daily Immunodeficiency with predom inant T-cell defect, unspecified 03/11/2014 12/26/2015 Urgency of micturation 03/04/201412/25 Urinary frequency 03/04/2014 12/26/2015 Arm pain, left 07/06/2013 12/26/2015 Back pain without radiation 07/06/2013 12/26/2015 Abnormal finding on imaging 07/06/2013 12/26/2015 Elevated sed rate 07/06/2013 12/26/2015 Hyperpigmentation of skin 03/31/2013 Overview: --resolved --bilateral breast tissue and axilla --order mycolog cream --monitor Diarrhea 03/31/2013 12/26/2015 Overview: - c diff pending Mucositis (ulcerative) due t o antineoplastic therapy 03/24/2013 12/26/2015 Overview: --improved --oxy prn --mouth care measures. Reflux 03/23/2013 12/26/2015 Overview: --improved with protonix Elevated LFTs 03/22/2013 12/26/2015 Overview: --increased AST ALT during chemo, resolved. Excess fluid volume 03/21/2013 12/26/19 16 Overview: --diuresis as needed --continue to monitor volume status CINV (chemotherapy-induced n ausea and vomiting) 03/17/2013 10/13/2015 Overview: --Resolved --Ativan PRN (none used) Peripheral neuropathy 03/16/20132015 Overview: --gabapentin 300mg TID with increased symptoms, bedtime dose of gabapentin increased to 600mg with improvement reported, continue DVT prophylaxis 03/16/2013 12/26/2015 Overview: --platelet count decreasing, d/c heparin SQ --encourage ambulation Insomnia 03/16/2013 12/26/2015 Overview: --ambien PRN at HS, with relief, but with vivid dreams, ambien d/c --restoril at 30mg PRN at HS with relief, continue Chronic chest pain 03/16/2013 6 Overview: --now resolved --since Hodgkin lymphoma diagnosis per patient Hospital discharge follow-up 03/16/2013 12/26/2015 Overview: --Patient will need to follow up with Dr. Unger after discharge Tachycardia 03/16/2013 12/26/2015 Overview: --patient taking atenolol 100mg BID at home, now BP running lower, decreased atenolol dose to 50mg BID with hypotension. --increase to 75mg BID, d/t tachycardia(HRs >110 while afebrile), HR now controlled, continue --monitor closely Electrolyte and fluid disord ers not elsewhere classified 02/16/2013 12/26/2015 DISPOSITION AND FOLLOW-UP 10/27/2012 Overview: 32 yo female from [place], [place]. Family involved with care, at bedside. plan to discharge patient home - will arrange with case management for post op care as needed - follow up in OPD in 7-10 days Post-op pain 10/27/2012 12/26/2015 Overview: currently well controlled with [employer] REPRESENTATIVE. will start PO pain meds today 10/27. tolerating percocet, pain relatively well controlled. Hodgkin's disease with nodular sclerosis 05/27/2012 12/26/2015 Overview: Oncology history (per Dr. 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 Hodgkin's disease, unspecified 02/05/2012 05/11/2014 Vaginal bleeding 12/26/2015 Overview: --likely from thrombocytopenia. No menses in prior 8 months. Scant amount reported on 03/29 and 03/30, now resolved --monitor bleeding by counting pads --should f/u with her [employer] provider after BMT Premature menopause 12/26/19 16 Postmenopausal atrophic vaginitis 12/26/2015 Dyspareunia 12/26/2015 documented as of this encounter (statuses as of 12/18/2022) [facility] History of Past illness Narrative* Problem Noted Date Diagnosed Date Resolved Date Menorrhagia with regular cycle 03/15/2017 01/01/2018 Overview: Added automatically from request for surgery [id number] History of pulmonary embolism 04/25/2016 01/01/2018 Neoplastic (malignant) related fatigue 04/25/2016 01/01/2018 Hidradenitis suppurativa 01/17/2016 Vitamin D deficiency 06/09/2015 016 HyperCKemia 05/06/2015 12/26/2015 Elevated aldolase level 05/06/2015 11/0 08/2015 Chronic pain of both knees 05/06/2015 1 02/24/2015 Pain in joint, multiple sites 05/06/2015 12/26/2015 Myalgia 05/06/2015 12/26/2015 Fatigue 05/06/2015 12/26/2015 Malaise and fatigue 03/24/2015 12/26/19 16 Gastroesophageal reflux dise ase without esophagitis 02/23/2015 12/26/2015 Laryngitis 02/23/2015 12/26/2015 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 10/28/2014 12/26/2015 Papanicolaou smear of cervix with low grade squamous intraepithelial lesion (LGSIL) 10/24/2014 12/25/2019 Pain in joint, ankle and foot 09/27/2014 12/26/2015 ASCUS favor dysplasia 09/18/20142015 Visit for gynecologic examination 09/07/2014 12/26/2015 Postmenopausal HRT (hormone replacement therapy) 08/18/2014 12/26/2015 Overview: offered Gait abnormality 07/22/2014 12/26/2015 Weakness of both legs 07/22/20142015 Sprain of ankle, left 06/29/20142015 PCP (pneumocystis jiroveci pneumonia) 06/03/2014 12/26/2015 Acute respiratory failure with hypoxemia 05/11/2014 12/26/2015 Overview: Increased O2 requirement overnight (2L to 5L) - bronchoscopy with BAL/TBLB tomorrow 8 AM. - NPO from midnight - hold tonight dose of lovenox. Radiation pneumonitis 05/11/20142015 Overview: 40 mg prednisone daily Immunodeficiency with predom inant T-cell defect, unspecified 03/11/2014 12/26/2015 Urgency of micturation 03/04/201412/25 Urinary frequency 03/04/2014 12/26/2015 Arm pain, left 07/06/2013 12/26/2015 Back pain without radiation 07/06/2013 12/26/2015 Abnormal finding on imaging 07/06/2013 12/26/2015 Elevated sed rate 07/06/2013 12/26/2015 Hyperpigmentation of skin 03/31/2013 Overview: --resolved --bilateral breast tissue and axilla --order mycolog cream --monitor Diarrhea 03/31/2013 12/26/2015 Overview: - c diff pending Mucositis (ulcerative) due t o antineoplastic therapy 03/24/2013 12/26/2015 Overview: --improved --oxy prn --mouth care measures. Reflux 03/23/2013 12/26/2015 Overview: --improved with protonix Elevated LFTs 03/22/2013 12/26/2015 Overview: --increased AST ALT during chemo, resolved. Excess fluid volume 03/21/2013 12/26/19 16 Overview: --diuresis as needed --continue to monitor volume status CINV (chemotherapy-induced n ausea and vomiting) 03/17/2013 10/13/2015 Overview: --Resolved --Ativan PRN (none used) Peripheral neuropathy 03/16/20132015 Overview: --gabapentin 300mg TID with increased symptoms, bedtime dose of gabapentin increased to 600mg with improvement reported, continue DVT prophylaxis 03/16/2013 12/26/2015 Overview: --platelet count decreasing, d/c heparin SQ --encourage ambulation Insomnia 03/16/2013 12/26/2015 Overview: --ambien PRN at HS, with relief, but with vivid dreams, ambien d/c --restoril at 30mg PRN at HS with relief, continue Chronic chest pain 03/16/2013 6 Overview: --now resolved --since Hodgkin lymphoma diagnosis per patient Hospital discharge follow-up 03/16/2013 12/26/2015 Overview: --Patient will need to follow up with Dr. Unger after discharge Tachycardia 03/16/2013 12/26/2015 Overview: --patient taking atenolol 100mg BID at home, now BP running lower, decreased atenolol dose to 50mg BID with hypotension. --increase to 75mg BID, d/t tachycardia(HRs >110 while afebrile), HR now controlled, continue --monitor closely Electrolyte and fluid disord ers not elsewhere classified 02/16/2013 12/26/2015 DISPOSITION AND FOLLOW-UP 10/27/2012 Overview: 32 yo female from [place], [place]. Family involved with care, at bedside. plan to discharge patient home - will arrange with case management for post op care as needed - follow up in OPD in 7-10 days Post-op pain 10/27/2012 12/26/2015 Overview: currently well controlled with [employer] REPRESENT[employer]IVE. will start PO pain meds today 10/27. tolerating percocet, pain relatively well controlled. Hodgkin's disease with nodular sclerosis 05/27/2012 12/26/2015 Overview: Oncology history (per Dr. 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 Hodgkin's disease, unspecified 02/05/2012 05/11/2014 Vaginal bleeding 12/26/2015 Overview: --likely from thrombocytopenia. No menses in prior 8 months. Scant amount reported on 03/29 and 03/30, now resolved --monitor bleeding by counting pads --should f/u with her [employer] provider after BMT Premature menopause 12/26/19 16 Postmenopausal atrophic vaginitis 12/26/2015 Dyspareunia 12/26/2015 documented as of this encounter (statuses as of 12/31/2022) [facility] History of Past illness Narrative* Problem Noted Date Diagnosed Date Resolved Date Menorrhagia with regular cycle 03/15/2017 01/01/2018 Overview: Added automatically from request for surgery [id number] History of pulmonary embolism 04/25/2016 01/01/2018 Neoplastic (malignant) related fatigue 04/25/2016 01/01/2018 Hidradenitis suppurativa 01/17/2016 Vitamin D deficiency 06/09/2015 016 HyperCKemia 05/06/2015 12/26/2015 Elevated aldolase level 05/06/201508/2015 Chronic pain of both knees 05/06/2015 1 02/24/2015 Pain in joint, multiple sites 05/06/2015 12/26/2015 Myalgia 05/06/2015 12/26/2015 Fatigue 05/06/2015 12/26/2015 Malaise and fatigue 03/24/2015 12/26/19 16 Gastroesophageal reflux dise ase without esophagitis 02/23/2015 12/26/2015 Laryngitis 02/23/2015 12/26/2015 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 10/28/2014 12/26/2015 Papanicolaou smear of cervix with low grade squamous intraepithelial lesion (LGSIL) 10/24/2014 12/25/2019 Pain in joint, ankle and foot 09/27/2014 12/26/2015 ASCUS favor dysplasia 09/18/20142015 Visit for gynecologic examination 09/07/2014 12/26/2015 Postmenopausal HRT (hormone replacement therapy) 08/18/2014 12/26/2015 Overview: offered Gait abnormality 07/22/2014 12/26/2015 Weakness of both legs 07/22/20142015 Sprain of ankle, left 06/29/20142015 PCP (pneumocystis jiroveci pneumonia) 06/03/2014 12/26/2015 Acute respiratory failure with hypoxemia 05/11/2014 12/26/2015 Overview: Increased O2 requirement overnight (2L to 5L) - bronchoscopy with BAL/TBLB tomorrow 8 AM. - NPO from midnight - hold tonight dose of lovenox. Radiation pneumonitis 05/11/20142015 Overview: 40 mg prednisone daily Immunodeficiency with predom inant T-cell defect, unspecified 03/11/2014 12/26/2015 Urgency of micturation 03/04/201412/25 Urinary frequency 03/04/2014 12/26/2015 Arm pain, left 07/06/2013 12/26/2015 Back pain without radiation 07/06/2013 12/26/2015 Abnormal finding on imaging 07/06/2013 12/26/2015 Elevated sed rate 07/06/2013 12/26/2015 Hyperpigmentation of skin 03/31/2013 Overview: --resolved --bilateral breast tissue and axilla --order mycolog cream --monitor Diarrhea 03/31/2013 12/26/2015 Overview: - c diff pending Mucositis (ulcerative) due t o antineoplastic therapy 03/24/2013 12/26/2015 Overview: --improved --oxy prn --mouth care measures. Reflux 03/23/2013 12/26/2015 Overview: --improved with protonix Elevated LFTs 03/22/2013 12/26/2015 Overview: --increased AST ALT during chemo, resolved. Excess fluid volume 03/21/2013 12/26/19 16 Overview: --diuresis as needed --continue to monitor volume status CINV (chemotherapy-induced n ausea and vomiting) 03/17/2013 10/13/2015 Overview: --Resolved --Ativan PRN (none used) Peripheral neuropathy 03/16/20132015 Overview: --gabapentin 300mg TID with increased symptoms, bedtime dose of gabapentin increased to 600mg with improvement reported, continue DVT prophylaxis 03/16/2013 12/26/2015 Overview: --platelet count decreasing, d/c heparin SQ --encourage ambulation Insomnia 03/16/2013 12/26/2015 Overview: --ambien PRN at HS, with relief, but with vivid dreams, ambien d/c --restoril at 30mg PRN at HS with relief, continue Chronic chest pain 03/16/2013 6 Overview: --now resolved --since Hodgkin lymphoma diagnosis per patient Hospital discharge follow-up 03/16/2013 12/26/2015 Overview: --Patient will need to follow up with Dr. Unger after discharge Tachycardia 03/16/2013 12/26/2015 Overview: --patient taking atenolol 100mg BID at home, now BP running lower, decreased atenolol dose to 50mg BID with hypotension. --increase to 75mg BID, d/t tachycardia(HRs >110 while afebrile), HR now controlled, continue --monitor closely Electrolyte and fluid disord ers not elsewhere classified 02/16/2013 12/26/2015 DISPOSITION AND FOLLOW-UP 10/27/2012 Overview: 32 yo female from [place], [place]. Family involved with care, at bedside. plan to discharge patient home - will arrange with case management for post op care as needed - follow up in OPD in 7-10 days Post-op pain 10/27/2012 12/26/2015 Overview: currently well controlled with [employer] REPRESENT[employer]IVE. will start PO pain meds today 10/27. tolerating percocet, pain relatively well controlled. Hodgkin's disease with nodular sclerosis 05/27/2012 12/26/2015 Overview: Oncology history (per Dr. 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 Hodgkin's disease, unspecified 02/05/2012 05/11/2014 Vaginal bleeding 12/26/2015 Overview: --likely from thrombocytopenia. No menses in prior 8 months. Scant amount reported on 03/29 and 03/30, now resolved --monitor bleeding by counting pads --should f/u with her [employer] provider after BMT Premature menopause 12/26/19 16 Postmenopausal atrophic vaginitis 12/26/2015 Dyspareunia 12/26/2015 documented as of this encounter (statuses as of 01/03/2023) [facility] History of Past illness Narrative* Problem Noted Date Diagnosed Date Resolved Date Menorrhagia with regular cycle 03/15/2017 01/01/2018 Overview: Added automatically from request for surgery [id number] History of pulmonary embolism 04/25/2016 01/01/2018 Neoplastic (malignant) related fatigue 04/25/2016 01/01/2018 Hidradenitis suppurativa 01/17/2016 Vitamin D deficiency 06/09/2015 016 HyperCKemia 05/06/2015 12/26/2015 Elevated aldolase level 05/06/201508/2015 Chronic pain of both knees 05/06/2015 1 02/24/2015 Pain in joint, multiple sites 05/06/2015 12/26/2015 Myalgia 05/06/2015 12/26/2015 Fatigue 05/06/2015 12/26/2015 Malaise and fatigue 03/24/2015 12/26/19 16 Gastroesophageal reflux dise ase without esophagitis 02/23/2015 12/26/2015 Laryngitis 02/23/2015 12/26/2015 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 10/28/2014 12/26/2015 Papanicolaou smear of cervix with low grade squamous intraepithelial lesion (LGSIL) 10/24/2014 12/25/2019 Pain in joint, ankle and foot 09/27/2014 12/26/2015 ASCUS favor dysplasia 09/18/20142015 Visit for gynecologic examination 09/07/2014 12/26/2015 Postmenopausal HRT (hormone replacement therapy) 08/18/2014 12/26/2015 Overview: offered Gait abnormality 07/22/2014 12/26/2015 Weakness of both legs 07/22/20142015 Sprain of ankle, left 06/29/20142015 PCP (pneumocystis jiroveci pneumonia) 06/03/2014 12/26/2015 Acute respiratory failure with hypoxemia 05/11/2014 12/26/2015 Overview: Increased O2 requirement overnight (2L to 5L) - bronchoscopy with BAL/TBLB tomorrow 8 AM. - NPO from midnight - hold tonight dose of lovenox. Radiation pneumonitis 05/11/20142015 Overview: 40 mg prednisone daily Immunodeficiency with predom inant T-cell defect, unspecified 03/11/2014 12/26/2015 Urgency of micturation 03/04/201412/25 Urinary frequency 03/04/2014 12/26/2015 Arm pain, left 07/06/2013 12/26/2015 Back pain without radiation 07/06/2013 12/26/2015 Abnormal finding on imaging 07/06/2013 12/26/2015 Elevated sed rate 07/06/2013 12/26/2015 Hyperpigmentation of skin 03/31/2013 Overview: --resolved --bilateral breast tissue and axilla --order mycolog cream --monitor Diarrhea 03/31/2013 12/26/2015 Overview: - c diff pending Mucositis (ulcerative) due t o antineoplastic therapy 03/24/2013 12/26/2015 Overview: --improved --oxy prn --mouth care measures. Reflux 03/23/2013 12/26/2015 Overview: --improved with protonix Elevated LFTs 03/22/2013 12/26/2015 Overview: --increased AST ALT during chemo, resolved. Excess fluid volume 03/21/2013 12/26/19 16 Overview: --diuresis as needed --continue to monitor volume status CINV (chemotherapy-induced n ausea and vomiting) 03/17/2013 10/13/2015 Overview: --Resolved --Ativan PRN (none used) Peripheral neuropathy 03/16/20132015 Overview: --gabapentin 300mg TID with increased symptoms, bedtime dose of gabapentin increased to 600mg with improvement reported, continue DVT prophylaxis 03/16/2013 12/26/2015 Overview: --platelet count decreasing, d/c heparin SQ --encourage ambulation Insomnia 03/16/2013 12/26/2015 Overview: --ambien PRN at HS, with relief, but with vivid dreams, ambien d/c --restoril at 30mg PRN at HS with relief, continue Chronic chest pain 03/16/2013 6 Overview: --now resolved --since Hodgkin lymphoma diagnosis per patient Hospital discharge follow-up 03/16/2013 12/26/2015 Overview: --Patient will need to follow up with Dr. Unger after discharge Tachycardia 03/16/2013 12/26/2015 Overview: --patient taking atenolol 100mg BID at home, now BP running lower, decreased atenolol dose to 50mg BID with hypotension. --increase to 75mg BID, d/t tachycardia(HRs >110 while afebrile), HR now controlled, continue --monitor closely Electrolyte and fluid disord ers not elsewhere classified 02/16/2013 12/26/2015 DISPOSITION AND FOLLOW-UP 10/27/2012 Overview: 32 yo female from [place], [place]. Family involved with care, at bedside. plan to discharge patient home - will arrange with case management for post op care as needed - follow up in OPD in 7-10 days Post-op pain 10/27/2012 12/26/2015 Overview: currently well controlled with [employer] REPRESENTATIVE. will start PO pain meds today 10/27. tolerating percocet, pain relatively well controlled. Hodgkin's disease with nodular sclerosis 05/27/2012 12/26/2015 Overview: Oncology history (per Dr. 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 Hodgkin's disease, unspecified 02/05/2012 05/11/2014 Vaginal bleeding 12/26/2015 Overview: --likely from thrombocytopenia. No menses in prior 8 months. Scant amount reported on 03/29 and 03/30, now resolved --monitor bleeding by counting pads --should f/u with her [employer] provider after BMT Premature menopause 12/26/19 16 Postmenopausal atrophic vaginitis 12/26/2015 Dyspareunia 12/26/2015 documented as of this encounter (statuses as of 01/03/2023) [facility] History of Past illness Narrative* Problem Noted Date Diagnosed Date Resolved Date Menorrhagia with regular cycle 03/15/2017 01/01/2018 Overview: Added automatically from request for surgery [id number] History of pulmonary embolism 04/25/2016 01/01/2018 Neoplastic (malignant) related fatigue 04/25/2016 01/01/2018 Hidradenitis suppurativa 01/17/2016 Vitamin D deficiency 06/09/2015 016 HyperCKemia 05/06/2015 12/26/2015 Elevated aldolase level 05/06/2015 11/0 08/2015 Chronic pain of both knees 05/06/2015 1 02/24/2015 Pain in joint, multiple sites 05/06/2015 12/26/2015 Myalgia 05/06/2015 12/26/2015 Fatigue 05/06/2015 12/26/2015 Malaise and fatigue 03/24/2015 12/26/19 16 Gastroesophageal reflux dise ase without esophagitis 02/23/2015 12/26/2015 Laryngitis 02/23/2015 12/26/2015 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 10/28/2014 12/26/2015 Papanicolaou smear of cervix with low grade squamous intraepithelial lesion (LGSIL) 10/24/2014 12/25/2019 Pain in joint, ankle and foot 09/27/2014 12/26/2015 ASCUS favor dysplasia 09/18/20142015 Visit for gynecologic examination 09/07/2014 12/26/2015 Postmenopausal HRT (hormone replacement therapy) 08/18/2014 12/26/2015 Overview: offered Gait abnormality 07/22/2014 12/26/2015 Weakness of both legs 07/22/20142015 Sprain of ankle, left 06/29/20142015 PCP (pneumocystis jiroveci pneumonia) 06/03/2014 12/26/2015 Acute respiratory failure with hypoxemia 05/11/2014 12/26/2015 Overview: Increased O2 requirement overnight (2L to 5L) - bronchoscopy with BAL/TBLB tomorrow 8 AM. - NPO from midnight - hold tonight dose of lovenox. Radiation pneumonitis 05/11/20142015 Overview: 40 mg prednisone daily Immunodeficiency with predom inant T-cell defect, unspecified 03/11/2014 12/26/2015 Urgency of micturation 03/04/201412/25 Urinary frequency 03/04/2014 12/26/2015 Arm pain, left 07/06/2013 12/26/2015 Back pain without radiation 07/06/2013 12/26/2015 Abnormal finding on imaging 07/06/2013 12/26/2015 Elevated sed rate 07/06/2013 12/26/2015 Hyperpigmentation of skin 03/31/2013 Overview: --resolved --bilateral breast tissue and axilla --order mycolog cream --monitor Diarrhea 03/31/2013 12/26/2015 Overview: - c diff pending Mucositis (ulcerative) due t o antineoplastic therapy 03/24/2013 12/26/2015 Overview: --improved --oxy prn --mouth care measures. Reflux 03/23/2013 12/26/2015 Overview: --improved with protonix Elevated LFTs 03/22/2013 12/26/2015 Overview: --increased AST ALT during chemo, resolved. Excess fluid volume 03/21/2013 12/26/19 16 Overview: --diuresis as needed --continue to monitor volume status CINV (chemotherapy-induced n ausea and vomiting) 03/17/2013 10/13/2015 Overview: --Resolved --Ativan PRN (none used) Peripheral neuropathy 03/16/20132015 Overview: --gabapentin 300mg TID with increased symptoms, bedtime dose of gabapentin increased to 600mg with improvement reported, continue DVT prophylaxis 03/16/2013 12/26/2015 Overview: --platelet count decreasing, d/c heparin SQ --encourage ambulation Insomnia 03/16/2013 12/26/2015 Overview: --ambien PRN at HS, with relief, but with vivid dreams, ambien d/c --restoril at 30mg PRN at HS with relief, continue Chronic chest pain 03/16/2013 6 Overview: --now resolved --since Hodgkin lymphoma diagnosis per patient Hospital discharge follow-up 03/16/2013 12/26/2015 Overview: --Patient will need to follow up with Dr. Unger after discharge Tachycardia 03/16/2013 12/26/2015 Overview: --patient taking atenolol 100mg BID at home, now BP running lower, decreased atenolol dose to 50mg BID with hypotension. --increase to 75mg BID, d/t tachycardia(HRs >110 while afebrile), HR now controlled, continue --monitor closely Electrolyte and fluid disord ers not elsewhere classified 02/16/2013 12/26/2015 DISPOSITION AND FOLLOW-UP 10/27/2012 Overview: 32 yo female from [place], [place]. Family involved with care, at bedside. plan to discharge patient home - will arrange with case management for post op care as needed - follow up in OPD in 7-10 days Post-op pain 10/27/2012 12/26/2015 Overview: currently well controlled with [employer] REPRESENTATIVE. will start PO pain meds today 10/27. tolerating percocet, pain relatively well controlled. Hodgkin's disease with nodular sclerosis 05/27/2012 12/26/2015 Overview: Oncology history (per Dr. 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 Hodgkin's disease, unspecified 02/05/2012 05/11/2014 Vaginal bleeding 12/26/2015 Overview: --likely from thrombocytopenia. No menses in prior 8 months. Scant amount reported on 03/29 and 03/30, now resolved --monitor bleeding by counting pads --should f/u with her [employer] provider after BMT Premature menopause 12/26/19 16 Postmenopausal atrophic vaginitis 12/26/2015 Dyspareunia 12/26/2015 documented as of this encounter (statuses as of 01/07/2023) [facility] History of Past illness Narrative* Problem Noted Date Diagnosed Date Resolved Date Menorrhagia with regular cycle 03/15/2017 01/01/2018 Overview: Added automatically from request for surgery [id number] History of pulmonary embolism 04/25/2016 01/01/2018 Neoplastic (malignant) related fatigue 04/25/2016 01/01/2018 Hidradenitis suppurativa 01/17/2016 Vitamin D deficiency 06/09/2015 016 HyperCKemia 05/06/2015 12/26/2015 Elevated aldolase level 05/06/201508/2015 Chronic pain of both knees 05/06/2015 1 02/24/2015 Pain in joint, multiple sites 05/06/2015 12/26/2015 Myalgia 05/06/2015 12/26/2015 Fatigue 05/06/2015 12/26/2015 Malaise and fatigue 03/24/2015 12/26/19 16 Gastroesophageal reflux dise ase without esophagitis 02/23/2015 12/26/2015 Laryngitis 02/23/2015 12/26/2015 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 10/28/2014 12/26/2015 Papanicolaou smear of cervix with low grade squamous intraepithelial lesion (LGSIL) 10/24/2014 12/25/2019 Pain in joint, ankle and foot 09/27/2014 12/26/2015 ASCUS favor dysplasia 09/18/20142015 Visit for gynecologic examination 09/07/2014 12/26/2015 Postmenopausal HRT (hormone replacement therapy) 08/18/2014 12/26/2015 Overview: offered Gait abnormality 07/22/2014 12/26/2015 Weakness of both legs 07/22/20142015 Sprain of ankle, left 06/29/20142015 PCP (pneumocystis jiroveci pneumonia) 06/03/2014 12/26/2015 Acute respiratory failure with hypoxemia 05/11/2014 12/26/2015 Overview: Increased O2 requirement overnight (2L to 5L) - bronchoscopy with BAL/TBLB tomorrow 8 AM. - NPO from midnight - hold tonight dose of lovenox. Radiation pneumonitis 05/11/20142015 Overview: 40 mg prednisone daily Immunodeficiency with predom inant T-cell defect, unspecified 03/11/2014 12/26/2015 Urgency of micturation 03/04/201412/25 Urinary frequency 03/04/2014 12/26/2015 Arm pain, left 07/06/2013 12/26/2015 Back pain without radiation 07/06/2013 12/26/2015 Abnormal finding on imaging 07/06/2013 12/26/2015 Elevated sed rate 07/06/2013 12/26/2015 Hyperpigmentation of skin 03/31/2013 Overview: --resolved --bilateral breast tissue and axilla --order mycolog cream --monitor Diarrhea 03/31/2013 12/26/2015 Overview: - c diff pending Mucositis (ulcerative) due t o antineoplastic therapy 03/24/2013 12/26/2015 Overview: --improved --oxy prn --mouth care measures. Reflux 03/23/2013 12/26/2015 Overview: --improved with protonix Elevated LFTs 03/22/2013 12/26/2015 Overview: --increased AST ALT during chemo, resolved. Excess fluid volume 03/21/2013 12/26/19 16 Overview: --diuresis as needed --continue to monitor volume status CINV (chemotherapy-induced n ausea and vomiting) 03/17/2013 10/13/2015 Overview: --Resolved --Ativan PRN (none used) Peripheral neuropathy 03/16/20132015 Overview: --gabapentin 300mg TID with increased symptoms, bedtime dose of gabapentin increased to 600mg with improvement reported, continue DVT prophylaxis 03/16/2013 12/26/2015 Overview: --platelet count decreasing, d/c heparin SQ --encourage ambulation Insomnia 03/16/2013 12/26/2015 Overview: --ambien PRN at HS, with relief, but with vivid dreams, ambien d/c --restoril at 30mg PRN at HS with relief, continue Chronic chest pain 03/16/2013 6 Overview: --now resolved --since Hodgkin lymphoma diagnosis per patient Hospital discharge follow-up 03/16/2013 12/26/2015 Overview: --Patient will need to follow up with Dr. Unger after discharge Tachycardia 03/16/2013 12/26/2015 Overview: --patient taking atenolol 100mg BID at home, now BP running lower, decreased atenolol dose to 50mg BID with hypotension. --increase to 75mg BID, d/t tachycardia(HRs >110 while afebrile), HR now controlled, continue --monitor closely Electrolyte and fluid disord ers not elsewhere classified 02/16/2013 12/26/2015 DISPOSITION AND FOLLOW-UP 10/27/2012 Overview: 32 yo female from [place], [place]. Family involved with care, at bedside. plan to discharge patient home - will arrange with case management for post op care as needed - follow up in OPD in 7-10 days Post-op pain 10/27/2012 12/26/2015 Overview: currently well controlled with [employer]. will start PO pain meds today 10/27. tolerating percocet, pain relatively well controlled. Hodgkin's disease with nodular sclerosis 05/27/2012 12/26/2015 Overview: Oncology history (per Dr. 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 Hodgkin's disease, unspecified 02/05/2012 05/11/2014 Vaginal bleeding 12/26/2015 Overview: --likely from thrombocytopenia. No menses in prior 8 months. 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 Nodular sclerosing Hodgkin's lymphoma, 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) 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 [facility] Encounter for palliative care- Primary 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) Cancer related pain Neoplasm related pain (acute) (chronic) Chemotherapy-induced neuropathy (HCC) 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 Muscle cramps Cramp of limb Anxiety Anxiety state, unspecified [facility] 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 [facility] Diagnosis Nodular sclerosing Hodgkin's lymphoma, 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) 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 [facility] Diagnosis Sinus congestion- Primary Other diseases of nasal cavity and sinuses Nodular sclerosing Hodgkin's lymphoma, unspecified body region (HCC) [facility] Diagnosis Muscle cramps Cramp of limb Nodular sclerosing Hodgkin's lymphoma, unspecified body region (HCC) [facility] Diagnosis Hodgkin lymphoma, unspecified Hodgkin lymphoma type, unspecified body region (HCC)- Primary 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) [facility] Diagnosis 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 Encounter for antineoplastic immunotherapy [facility] Diagnosis 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 Cancer related pain Neoplasm related pain (acute) (chronic) Encounter for palliative care [facility] Diagnosis 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) Nausea Nausea alone [facility] Diagnosis Simple chronic bronchitis (HCC)- Primary Simple chronic bronchitis Restrictive lung disease Other diseases of lung, not elsewhere classified [facility]* Diagnosis 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 [facility] Diagnosis 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) Nausea Nausea alone [facility]* Diagnosis Muscle cramps Cramp of limb Nodular sclerosing Hodgkin's lymphoma, 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) 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 [facility] Diagnosis 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 Cancer related pain Neoplasm related pain (acute) (chronic) Encounter for palliative care [facility] Diagnosis 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 [facility] Diagnosis Hidradenitis suppurativa- Primary Hidradenitis Painful skin lesion [facility]* Diagnosis Muscle cramps Cramp of limb Nodular sclerosis classical Hodgkin lymphoma (HCC) Hodgkin's disease, nodular sclerosis, unspecified site, extranodal and solid organ sites [facility] Diagnosis 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 Cancer related pain Neoplasm related pain (acute) (chronic) Encounter for palliative care documented in this encounter [facility] Other Evaluation [facility]* Diagnosis 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 [facility] Diagnosis 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 [facility]* Diagnosis Muscle cramps Cramp of limb Nodular sclerosis classical Hodgkin lymphoma (HCC) Hodgkin's disease, nodular sclerosis, unspecified site, extranodal and solid organ sites [facility]* Diagnosis Muscle cramps Cramp of limb Nodular sclerosing Hodgkin's lymphoma, unspecified body region (HCC) [facility]* Diagnosis 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) Nausea Nausea alone [facility] Diagnosis Hidradenitis suppurativa- Primary Hidradenitis Painful skin lesion Dermatofibroma of left knee [facility] Diagnosis 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 [facility] Diagnosis Nodular sclerosing Hodgkin's lymphoma, 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) 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 [facility]* Diagnosis Simple chronic bronchitis (HCC) Simple chronic bronchitis [facility]* Diagnosis Muscle cramps Cramp of limb Nodular sclerosing Hodgkin's lymphoma, unspecified body region (HCC) [facility] Diagnosis 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 Cancer related pain Neoplasm related pain (acute) (chronic) Encounter for palliative care [facility]* Diagnosis 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 [facility]* Diagnosis Nodular sclerosing Hodgkin's lymphoma, unspecified body region (HCC)- Primary Encounter for antineoplastic immunotherapy [facility] Diagnosis 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 Encounter for antineoplastic immunotherapy [facility] Diagnosis Encounter for palliative care- Primary 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) Muscle cramps Cramp of limb [facility] Diagnosis Muscle cramps Cramp of limb Nodular sclerosis classical Hodgkin lymphoma (HCC) Hodgkin's disease, nodular sclerosis, unspecified site, extranodal and solid organ sites [facility]* Diagnosis Muscle cramps Cramp of limb Nodular sclerosing Hodgkin's lymphoma, unspecified body region (HCC) [facility] Diagnosis 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 [facility] Diagnosis Nodular sclerosing Hodgkin's lymphoma, unspecified body region (HCC)- Primary [facility] Diagnosis Nodular sclerosing Hodgkin's lymphoma, unspecified body region (HCC)- Primary History of pulmonary embolism Personal history of pulmonary embolism Chemotherapy-induced neuropathy (HCC) 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 Muscle cramps Cramp of limb [facility] Diagnosis 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 [facility] Diagnosis History of pulmonary embolism Personal history of pulmonary embolism [facility] Diagnosis 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 Nausea Nausea alone [facility] Diagnosis 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 [facility] Diagnosis Acne vulgaris- Primary Other acne [facility] Diagnosis Nodular sclerosing Hodgkin's lymphoma, 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) 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 [facility] Diagnosis 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 Encounter for antineoplastic immunotherapy Encounter for long-term (current) use of medications Encounter for long-term (current) use of other medications [facility] Diagnosis Nodular sclerosing Hodgkin's lymphoma, unspecified body region (HCC)- Primary JOE (dyspnea on exertion) Other dyspnea and respiratory abnormality Chronic cough Cough Chest tightness Other chest pain [facility] Diagnosis Muscle cramps Cramp of limb Nodular sclerosing Hodgkin's lymphoma, unspecified body region (HCC) [facility] Diagnosis 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 Cancer related pain Neoplasm related pain (acute) (chronic) Encounter for palliative care [facility] Diagnosis 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 [facility] Diagnosis Nodular sclerosing Hodgkin's lymphoma, 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) 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 [facility] Diagnosis Muscle cramps Cramp of limb Nodular sclerosis classical Hodgkin lymphoma (HCC) Hodgkin's disease, nodular sclerosis, unspecified site, extranodal and solid organ sites [facility] Diagnosis Encounter for palliative care- Primary Opioid use agreement exists Encounters for other specified administrative purpose Anxiety Anxiety state, unspecified Cancer related pain Neoplasm related pain (acute) (chronic) 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) Muscle cramps Cramp of limb [facility] Diagnosis 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 Encounter for antineoplastic immunotherapy [facility] Diagnosis History of pulmonary embolism Personal history of pulmonary embolism [facility] Diagnosis 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) Nausea Nausea alone Chemotherapy-induced neuropathy (HCC) 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 [facility]* Diagnosis 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 [facility]* Diagnosis 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 Cancer related pain Neoplasm related pain (acute) (chronic) Encounter for palliative care Muscle cramps Cramp of limb Nodular sclerosis classical Hodgkin lymphoma (HCC) Hodgkin's disease, nodular sclerosis, unspecified site, extranodal and solid organ sites [facility] Diagnosis Muscle cramps Cramp of limb Nodular sclerosing Hodgkin's lymphoma, 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) 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 [facility]* Diagnosis 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 [facility] Diagnosis 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 [facility] Diagnosis 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 [facility] Diagnosis 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 marrow replaced by transplant [facility] Diagnosis 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 Encounter for long-term (current) use of medications Encounter for long-term (current) use of other medications Encounter for antineoplastic immunotherapy [facility] Diagnosis 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 Cancer related pain Neoplasm related pain (acute) (chronic) Encounter for palliative care Muscle cramps Cramp of limb Nodular sclerosis classical Hodgkin lymphoma (HCC) Hodgkin's disease, nodular sclerosis, unspecified site, extranodal and solid organ sites [facility] Diagnosis Muscle cramps Cramp of limb Nodular sclerosing Hodgkin's lymphoma, 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) 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 [facility] Diagnosis Encounter for palliative care- Primary 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 Cancer related pain Neoplasm related pain (acute) (chronic) Muscle cramps Cramp of limb Opioid use agreement exists Encounters for other specified administrative purpose [facility] Diagnosis 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 [facility]* Diagnosis Nodular sclerosing Hodgkin's lymphoma, 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) 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 [facility]* Diagnosis NO SHOW- Primary documented in this encounter [facility]* Diagnosis 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 Uterine leiomyoma, unspecified location [facility]* Diagnosis Muscle cramps Cramp of limb Nodular sclerosis classical Hodgkin lymphoma (HCC) Hodgkin's disease, nodular sclerosis, unspecified site, extranodal and solid organ sites 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 Cancer related pain Neoplasm related pain (acute) (chronic) Encounter for palliative care documented in this encounter [facility]* Diagnosis Dyspnea on exertion- Primary Other dyspnea and respiratory abnormality [facility]* Diagnosis 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 Cancer related pain Neoplasm related pain (acute) (chronic) Encounter for palliative care documented in this encounter [facility]* Diagnosis Nodular sclerosing Hodgkin's lymphoma, unspecified body region (HCC)- Primary [facility] Diagnosis Palliative care by specialist- Primary Opioid use agreement exists Encounters for other specified administrative purpose Cancer related pain Neoplasm related pain (acute) (chronic) 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) Muscle cramps Cramp of limb [facility] Diagnosis Nodular sclerosing Hodgkin's lymphoma, 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) 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 [facility] Diagnosis Chronic cough- Primary Cough Productive cough Cough Dyspnea on exertion Other dyspnea and respiratory abnormality Opacity of lung on imaging study [facility] Diagnosis Bronchitis- Primary Bronchitis, not specified as acute or chronic Chronic cough Cough [facility]* Diagnosis Muscle cramps Cramp of limb Nodular sclerosing Hodgkin's lymphoma, unspecified body region (HCC) [facility] Diagnosis Muscle cramps Cramp of limb Nodular sclerosing Hodgkin's lymphoma, unspecified body region (HCC) [facility]* Diagnosis 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 Cancer related pain Neoplasm related pain (acute) (chronic) Encounter for palliative care [facility] Diagnosis 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 [facility]* Diagnosis 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 [facility]* Diagnosis Nodular sclerosing Hodgkin's lymphoma, 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) 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 [facility]* Diagnosis Nodular sclerosing Hodgkin's lymphoma, 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) 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 [facility]* Diagnosis Restrictive lung disease- Primary Other diseases of lung, not elsewhere classified 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 Chronic cough Cough History of pulmonary embolism Personal history of pulmonary embolism [facility] Diagnosis Acute cough [facility]* Diagnosis Muscle cramps Cramp of limb Nodular sclerosis classical Hodgkin lymphoma (HCC) Hodgkin's disease, nodular sclerosis, unspecified site, extranodal and solid organ sites [facility]* Diagnosis Muscle cramps Cramp of limb Nodular sclerosing Hodgkin's lymphoma, unspecified body region (HCC) [facility] Diagnosis 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 Cancer related pain Neoplasm related pain (acute) (chronic) Encounter for palliative care [facility] Diagnosis Nodular sclerosing Hodgkin's lymphoma, 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) 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 [facility] Diagnosis Nodular sclerosing Hodgkin's lymphoma, 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) 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 [facility] Diagnosis Hidradenitis suppurativa- Primary Hidradenitis Painful skin lesion [facility] Diagnosis Palliative care by specialist- Primary Nodular sclerosing Hodgkin's lymphoma, unspecified body region (HCC) Cancer related pain Neoplasm related pain (acute) (chronic) Opioid use agreement exists Encounters for other specified administrative purpose Muscle cramps Cramp of limb [facility] Diagnosis 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) Nausea Nausea alone [facility] Diagnosis 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 Cancer related pain Neoplasm related pain (acute) (chronic) Encounter for palliative care [facility] Diagnosis Nodular sclerosing Hodgkin's lymphoma, 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) 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 [facility] Diagnosis History of pulmonary embolism Personal history of pulmonary embolism [facility] Diagnosis Muscle cramps Cramp of limb Nodular sclerosing Hodgkin's lymphoma, unspecified body region (HCC) [facility] Diagnosis 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 Restrictive lung disease Other diseases of lung, not elsewhere classified History of DVT (deep vein thrombosis) Personal history of venous thrombosis and embolism Chemotherapy-induced neuropathy (HCC) 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 Psoriasis Other psoriasis Cancer associated pain Neoplasm related pain (acute) (chronic) Acquired hypothyroidism Unspecified hypothyroidism documented in this encounter [facility] note* Diagnosis Muscle cramps Cramp of limb Nodular sclerosing Hodgkin's lymphoma, 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 Cancer related pain Neoplasm related pain (acute) (chronic) Encounter for palliative care documented in this encounter [facility] note* Diagnosis 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 documented in this encounter [facility] noteNo assessment information [facility] Work Phone: Evaluation note* Diagnosis Chronic cough Cough documented in this encounter [facility] note* Diagnosis Bronchitis Bronchitis, not specified as acute or chronic documented in this encounter [facility] note* Diagnosis Restrictive lung disease- Primary Other diseases of lung, not elsewhere classified Chronic cough Cough Post-nasal drip Postnasal drip Hoarseness Dysphonia Dysphagia, unspecified type History of pulmonary embolism Personal history of pulmonary embolism documented in this encounter [facility] note* Diagnosis Bronchitis, not specified as acute or chronic- Primary Chronic cough Cough documented in this encounter [facility] note* Diagnosis COVID-19- Primary documented in this encounter [facility]* Diagnosis COVID-19 documented in this encounter [facility]* Diagnosis 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 documented in this encounter [facility] general Narrative - [facility]Positioning Other History general Narrative - Reported* Type Description Date Medical History Hodgkin lymphoma of lymph nodes of neck, unspecified Hodgkin lymphoma type Medical History Hypothyroid Medical History Tachycardia Medical History Neuropathy Medical History Pulmonary embolism Medical History 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 Surgical History biopsy Hospitalization History she has had several stay s for her dx [facility] Other Reason for referral (narrative)* Diagnostic Procedure Only (Routine) - Authorized Specialty Diagnoses / Procedures Referred By Heidi t Referred To Contact [facility]LECULAR & FUNCTIONAL IMAGING Diagnoses Hodgkin lymphoma, unspecified Hodgkin lymphoma type, unspecified body region (HCC) 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) Procedures NM PET/CT SKULL-THIGH SUBSEQUENT PET IMAGING CT ATTENUATION [place] [address] [place] [address] Molecular [facility] Imaging [address] [place], [place] [id number] Referral ID Status Reason Start Date Expiration Date Visits Requested Visits Authorized [id number] Authorized Auto-Generat ed Referral 06/14/2021 07/14/[address] [facility] for referral (narrative)* Diagnostic Procedure Only (Routine) - Authorized Specialty Diagnoses / Procedures Referred By Heidi george Referred To Contact [facility]LECULAR [facility] FUNCTIONAL [facility]AGING Diagnoses Nodular sclerosing Hodgkin's lymphoma, unspecified body region (HCC) Procedures NM PET/CT SKULL-THIGH SUBSEQUENT PET IMAGING CT ATTENUATION [place] [address] [place] [id number] Molecular & Functional Imaging [address] [place] [address] Referral ID Status Reason Start Date Expiration Date Visits Requested Visits Authorized [id number] Authorized Auto-Generat ed Referral 11/15/2021 12/15/[address] [facility] [address] [facility] for referral (narrative)* Outpatient Procedure (Routine) - Pending Review Specialty Diagnoses / Procedures Referred By Heidi george Referred To Contact [facility] Diagnoses Nodular sclerosing Hodgkin's lymphoma, unspecified body region (HCC) JOE (dyspnea on exertion) Chronic cough Procedures ECHO ECHO TTHRC R-T 2D W/WOM-MODE COMPL SPEC&COLR D Sylvia Mancilla, PHOTOTYPESETTER OPERATOR.CLINICAL TRIAL DATA MANAGER [address] [place] [address] [facility] [place] [address] [place] [address] Referral ID Status Reason Start Date Expiration Date Visits Requested Visits Authorized [id number] Pending Review Auto-Generat ed Referral 12/27/2021 12/27/[address] [facility] [address] [facility] for referral (narrative)* Diagnostic Procedure Only (Routine) - Pending Review Specialty Diagnoses / Procedures [facility]erred To Contact [facility] FUNCTIONAL IMAGING Diagnoses Nodular sclerosing Hodgkin's lymphoma, unspecified body region (HCC) Procedures NM PET/CT SKULL-THIGH SUBSEQUENT PET IMAGING CT ATTENUATION [place] [address] [place] [id number] [facility] [address] [place] [id number] Referral ID Status Reason Start Date Expiration Date Visits Requested Visits Authorized [id number] Pending Review Auto-Generat ed Referral 07/18/2022 08/17/[address] [facility] [address] [facility] for referral (narrative)* Outpatient Procedure (Routine) - Authorized Specialty Diagnoses / Procedures Referred By [facility] Referred To Contact [facility] Diagnoses Bronchitis Procedures NITRIC OXIDE, EXHALED NITRIC OXIDE GAS DETERMINATION Ella Chan APRN.CNP [address] [place] [address] [facility] [place] [address] [place] [id number] Referral ID Status Reason Start Date Expiration Date Visits Requested Visits Authorized [id number] Authorized Auto-Generat ed Referral 08/02/2022 09/01/2023 1 1 * Outpatient Procedure (Routine) - Authorized Specialty Diagnoses / Procedures Referred By [facility] Referred To Contact [facility] Diagnoses Chronic cough Procedures LUNG DIFFUSION CAPACITY (DLCO) DIFFUSING CAPACITY Ella Chan APRN.CNP [address] [place] [address] [facility] [place] [address] [place] [address] Referral ID Status Reason Start Date Expiration Date Visits Requested Visits Authorized [id number] Authorized Auto-Generat ed Referral 08/02/2022 09/01/2023 1 1 * Outpatient Procedure (Routine) - Authorized Specialty Diagnoses / Procedures Referred By Contac t Referred To Contact [facility] Diagnoses Chronic cough Procedures SPIROMETRY - BASELINE AND POST DILATOR BRNCDILAT RSPSE SPMTRY PRE&POST-BRNCDILAT ADMElla Cuevas APRN.CNP [address] [place] [address] [facility] [place] [address] [place] [address] Referral ID Status Reason Start Date Expiration Date Visits Requested Visits Authorized [id number] Authorized Auto-Generat ed Referral 08/02/2022 09/01/[address] [facility] [address] [facility] for referral (narrative)* Diagnostic Procedure Only (Routine) - Pending Review Specialty Diagnoses / Procedures Referred By Contac t Referred To Contact MOLECULAR [facility] FUNCTIONAL IMAGING 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) Procedures NM PET/CT SKULL-THIGH SUBSEQUENT PET IMAGING CT ATTENUATION [place] [address] [place] [address] Molecular [facility] Functional Imaging [address] [place] [address] Referral ID Status Reason Start Date Expiration Date Visits Requested Visits Authorized [id number] Pending Review Auto-Generat ed Referral 08/22/2022 09/21/[address] [facility] [address] [facility] for referral (narrative)* Diagnostic Procedure Only (Routine) - Authorized Specialty Diagnoses / Procedures Referred By Contac t Referred To Contact MOLECULAR [facility] FUNCTIONAL IMAGING Diagnoses 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) Procedures NM PET/CT SKULL-THIGH SUBSEQUENT PET IMAGING CT ATTENUATION SKULL BASE MID-THIGH Alexsander Ledezma MD [address] [place] [address] [place] [address] Molecular & Functional Imaging [address] [place] [address] Referral ID Status Reason Start Date Expiration Date Visits Requested Visits Authorized [id number] Authorized Auto-Generat ed Referral 01/31/2024 1 1 [facility] Summary Purpose Family History No Family History Records FoundNo Family History Records FoundNo Family History Records FoundNo Family History Records FoundNo Family History Records FoundNo Family History Records FoundNo Family History Records FoundNo Family History Records FoundNo Family History Records FoundNo Family History Records Found Advance Directives Documents on File Type Date Recorded Patient Personnel Assistant Expl anation Advance Directive(s) 09/30/2017 12:34 PM Advance Directive(s) 04/16/2016 9:44 PM Advance Directive(s) 01/28/2016 8:20 PM Documents on File Type Date Recorded Patient Personnel Assistant Expl anation Advance Directive(s) 09/30/2017 12:34 PM Advance Directive(s) 04/16/2016 9:44 PM Advance Directive(s) 01/28/2016 8:20 PM Documents on File Type Date Recorded Patient Personnel Assistant Expl anation Advance Directive(s) 09/20/2021 8:56 PM Advance Directive(s) 09/30/2017 12:34 PM Advance Directive(s) 04/16/2016 9:44 PM Advance Directive(s) 01/28/2016 8:20 PM Advance Directive Response Recorded Date/ Time Advance Directives No April 22 1:09pm Medications Administered Section Inactive Administered Medications - up to 3 most recent administrations Medication Order MAR Action Action Date Dose Rate Site pembrolizumab 200 mg in NaCl 0.9% 50 mL (KEYTRUDA) 200 mg, INTRAVENOUS, Administer over 30 Minutes, ONCE, 1 dose, On Sat05/17/21 at 1230, Approx Total Volume - Expires: 05.18.21 1230 RF Administer with 0.2 micron filter. New Bag/Syringe/Bottle 05/17/2021 12:55 PM EDT 200 mg Inactive Administered Medications - up to 3 most recent administrations Medication Order MAR Action Action Date Dose Rate Site pembrolizumab 200 mg in NaCl 0.9% 50 mL (KEYTRUDA) 200 mg, INTRAVENOUS, Administer over 30 Minutes, ONCE, 1 dose, On Sat06/14/21 at 0900, Approx Total Volume - Expires: 06/14/21 1530 Administer with 0.2 micron filter. New Bag/Syringe/Bottle 06/14/2021 9:28 AM EDT 200 mg Inactive Administered Medications - up to 3 most recent administrations Medication Order MAR Action Action Date Dose Rate Site pembrolizumab 200 mg in NaCl 0.9% 66 mL (KEYTRUDA) 200 mg, INTRAVENOUS, Administer over 30 Minutes, ONCE, 1 dose, On Sat07/05/21 at 0900, Expires: 07/05/21 1700 Administer with 0.2 micron filter. New Bag/Syringe/Bottle 07/05/2021 8:58 AM EDT 200 mg Inactive Administered Medications - up to 3 most recent administrations Medication Order MAR Action Action Date Dose Rate Site pembrolizumab 200 mg in NaCl 0.9% 66 mL (KEYTRUDA) 200 mg, INTRAVENOUS, Administer over 30 Minutes, ONCE, 1 dose, On Sat07/26/21 at 1100, Expires: 6. 1100 RF Administer with 0.2 micron filter. New Bag/Syringe/Bottle 07/26/2021 11:42 AM EDT 200 mg Inactive Administered Medications - up to 3 most recent administrations Medication Order MAR Action Action Date Dose Rate Site triamcinolone acetonide 10 mg injection (KeNALog 10) 10 mg, INTRALESIONAL, ONCE, 1 dose, On Sat07/28/21 at 0830 Given 07/28/2021 8:30 AM EDT 10 mg Other Inactive Administered Medications - up to 3 most recent administrations Medication Order MAR Action Action Date Dose Rate Site pembrolizumab 200 mg in NaCl 0.9% 66 mL (KEYTRUDA) 200 mg, INTRAVENOUS, Administer over 30 Minutes, ONCE, 1 dose, On Sat08/16/21 at 0930, Expires 08/16/21 @ 1525 Administer with 0.2 micron filter. New Bag/Syringe/Bottle 08/16/2021 9:50 AM EDT 200 mg Inactive Administered Medications - up to 3 most recent administrations Medication Order MAR Action Action Date Dose Rate Site triamcinolone acetonide 10 mg injection (KeNALog 10) 10 mg, INTRALESIONAL, ONCE, 1 dose, On Tu09/05/21 at 1830 Given 09/05/2021 6:30 PM EDT 10 mg Other Inactive Administered Medications - up to 3 most recent administrations Medication Order MAR Action Action Date Dose Rate Site pembrolizumab 200 mg in NaCl 0.9% 66 mL (KEYTRUDA) 200 mg, INTRAVENOUS, Administer over 30 Minutes, ONCE, 1 dose, On Sat09/06/21 at 1300, Expires: 6.9 1100 RF Administer with 0.2 micron filter. New Bag/Syringe/Bottle 09/06/2021 1:25 PM EDT 200 mg Inactive Administered Medications - up to 3 most recent administrations Medication Order MAR Action Action Date Dose Rate Site pembrolizumab 200 mg in NaCl 0.9% 66 mL (KEYTRUDA) 200 mg, INTRAVENOUS, Administer over 30 Minutes, ONCE, 1 dose, On Nita 10/26/21 at 1130, Expires:10/26/21 1200 RF Administer with 0.2 micron filter. New Bag/Syringe/Bottle 10/26/2021 11:46 AM EDT 200 mg Inactive Administered Medications - up to 3 most recent administrations Medication Order MAR Action Action Date Dose Rate Site pembrolizumab 200 mg in NaCl 0.9% 66 mL (KEYTRUDA) 200 mg, INTRAVENOUS, Administer over 30 Minutes, ONCE, 1 dose, On Sat11/15/21 at 1400, Expires: 11/16/21 1400 Administer with 0.2 micron filter. New Bag/Syringe/Bottle 11/15/2021 2:11 PM EDT 200 mg Inactive Administered Medications - up to 3 most recent administrations Medication Order MAR Action Action Date Dose Rate Site pembrolizumab 200 mg in NaCl 0.9% 66 mL (KEYTRUDA) 200 mg, INTRAVENOUS, Administer over 30 Minutes, ONCE, 1 dose, On Sat12/06/21 at 1330, Expires: 12/07/21 2100 Administer with 0.2 micron filter. New Bag/Syringe/Bottle 12/06/2021 1:55 PM EDT 200 mg Inactive Administered Medications - up to 3 most recent administrations Medication Order MAR Action Action Date Dose Rate Site pembrolizumab 200 mg in NaCl 0.9% 66 mL (KEYTRUDA) 200 mg, INTRAVENOUS, Administer over 30 Minutes, ONCE, 1 dose, On Sat12/27/21 at 1000, Expires: 12/27/21 1700 Administer with 0.2 micron filter. New Bag/Syringe/Bottle 12/27/2021 10:30 AM EST 200 mg Inactive Administered Medications - up to 3 most recent administrations Medication Order MAR Action Action Date Dose Rate Site pembrolizumab 200 mg in NaCl 0.9% 66 mL (KEYTRUDA) 200 mg, INTRAVENOUS, Administer over 30 Minutes, ONCE, 1 dose, On Sat01/18/22 at 1100, Exp 12.2 1100 RF Approx Total Vol Administer with 0.2 micron filter. New Bag/Syringe/Bottle 01/18/2022 10:55 AM EST 200 mg Inactive Administered Medications - up to 3 most recent administrations Medication Order MAR Action Action Date Dose Rate Site pembrolizumab 200 mg in NaCl 0.9% 66 mL (KEYTRUDA) 200 mg, INTRAVENOUS, Administer over 30 Minutes, ONCE, 1 dose, On Sat02/14/22 at 1230, Exp 02/14/22 @ 1830 Approx Total Vol Administer with 0.2 micron filter. New Bag/Syringe/Bottle 02/14/2022 12:53 PM EST 200 mg Inactive Administered Medications - up to 3 most recent administrations Medication Order MAR Action Action Date Dose Rate Site pembrolizumab 200 mg in NaCl 0.9% 66 mL (KEYTRUDA) 200 mg, INTRAVENOUS, Administer over 30 Minutes, ONCE, 1 dose, On Sat04/10/22 at 0930, Exp 2.22 1000 Administer with 0.2 micron filter. New Bag/Syringe/Bottle 04/10/2022 9:56 AM EST 200 mg Inactive Administered Medications - up to 3 most recent administrations Medication Order MAR Action Action Date Dose Rate Site pembrolizumab 200 mg in NaCl 0.9% 66 mL (KEYTRUDA) 200 mg, INTRAVENOUS, Administer over 30 Minutes, ONCE, 1 dose, On Sat05/01/22 at 1000, 3.15.23 1000 Administer with 0.2 micron filter. New Bag/Syringe/Bottle 05/01/2022 10:27 AM EDT 200 mg Inactive Administered Medications - up to 3 most recent administrations Medication Order MAR Action Action Date Dose Rate Site triamcinolone acetonide [facility] ([facility]) 10 mg, INTRALESIONAL, ONCE, 1 dose, On Nita 10/18/22 at 1030, 0.1-0.5 ml of 10 mg ILK to hidradenitis supprativa lesion Given 10/18/2022 10:30 AM EDT 10 mg Thigh, Left Health Concerns Infection Onset Date Last Indicated Resolved Time COVID-19 Confirmed 09/20/2021 09/20/2021 Infection Onset Date Last Indicated Resolved Time COVID-19 Confirmed 09/20/2021 09/20/2021 8:53 PM EDT Reason for Referral Specialty Diagnoses / Procedures Referred By Contac t Referred To Contact Ent - Otolaryngology Diagnoses Dysphagia, unspecified type Hoarseness Procedures CONSULT TO ENT OFFICE/OUTPATIENT [facility] 60 MINUTES Kylie Nunes, LORY.CLINICAL TRIAL DATA MANAGER [address] [place] [id number] Referral ID Status Reason Start Date Expiration Date Visits Requested Visits Authorized [id number] Authorized PCP Requested Referral 03/28/2023 03/27/2024 1 1 Specialty Diagnoses / Procedures Referred By Contac t Referred To Contact CT IMAGING Diagnoses Acute cough Procedures CT CHEST WO IVCON DIAGNOSTIC COMPUTED TOMOGRAPHY THORAX W/[place] [address] [place] [id number] [address] Imaging Referral ID Status Reason Start Date Expiration Date V isits Requested Visits Authorized [id number] Closed Auto-Generate d Referral 05/22/2022 06/21/2023 1 1 Additional Source Comments INFORMATION SOURCE (unrecogn ized section and content) DATE CREATED AUTHOR 03/03/2019 [facility] DATE CREATED AUTHOR AUTHOR'S ORGANIZ ATION 09/22/2019 [facility] DATE CREATED AUTHOR AUTHOR'S ORGANIZ ATION [facility]/20[facility] [place] DATE CREATED AUTHOR AUTHOR'S ORGANIZ ATION 07/08/2021 [employer] DATE CREATED AUTHOR AUTHOR'S ORGANIZ ATION 09/26/2021 [facility] DATE CREATED AUTHOR AUTHOR'S ORGANIZ ATION 06/23/2022 [facility] DATE CREATED AUTHOR AUTHOR'S ORGANIZ ATION 10/19/2022 [facility] DATE CREATED AUTHOR AUTHOR'S ORGANIZ ATION 03/29/2023 [facility] DATE CREATED AUTHOR AUTHOR'S ORGANIZ ATION 03/30/2023 [facility] DATE CREATED AUTHOR AUTHOR'S ORGANIZ ATION 03/31/2023 [facility] EPIC Source Comments (unrecognize d section and content) In the event this informatio n is protected by the Federal Confidentiality of Alcohol and Drug Abuse Patient Records regulations: The Federal rules restrict any use of the information to criminally investigate or prosecute any alcohol or drug abuse patient.[facility] the event this information is protected by the Federal Confidentiality of Alcohol and Drug Abuse Patient Records regulations: The Federal rules restrict any use of the information to criminally investigate or prosecute any alcohol or drug abuse patient.[facility] the event this information is protected by the Federal Confidentiality of Alcohol and Drug Abuse Patient Records regulations: The Federal rules restrict any use of the information to criminally investigate or prosecute any alcohol or drug abuse patient.[facility] Center[facility] the event this information is protected by the Federal Confidentiality of Alcohol and Drug Abuse Patient Records regulations: The Federal rules restrict any use of the information to criminally investigate or prosecute any alcohol or drug abuse patient.[facility] Center[facility] the event this information is protected by the Federal Confidentiality of Alcohol and Drug Abuse Patient Records regulations: The Federal rules restrict any use of the information to criminally investigate or prosecute any alcohol or drug abuse patient.[facility] Center[facility] the event this information is protected by the Federal Confidentiality of Alcohol and Drug Abuse Patient Records regulations: The Federal rules restrict any use of the information to criminally investigate or prosecute any alcohol or drug abuse patient.[facility] Center[facility] the event this information is protected by the Federal Confidentiality of Alcohol and Drug Abuse Patient Records regulations: The Federal rules restrict any use of the information to criminally investigate or prosecute any alcohol or drug abuse patient.[facility] Center[facility] the event this information is protected by the Federal Confidentiality of Alcohol and Drug Abuse Patient Records regulations: The Federal rules restrict any use of the information to criminally investigate or prosecute any alcohol or drug abuse patient.[facility] Center[facility] the event this information is protected by the Federal Confidentiality of Alcohol and Drug Abuse Patient Records regulations: The Federal rules restrict any use of the information to criminally investigate or prosecute any alcohol or drug abuse patient.[facility] Center[facility] the event this information is protected by the Federal Confidentiality of Alcohol and Drug Abuse Patient Records regulations: The Federal rules restrict any use of the information to criminally investigate or prosecute any alcohol or drug abuse patient.[facility] Center[facility] the event this information is protected by the Federal Confidentiality of Alcohol and Drug Abuse Patient Records regulations: The Federal rules restrict any use of the information to criminally investigate or prosecute any alcohol or drug abuse patient.[facility] Center[facility] the event this information is protected by the Federal Confidentiality of Alcohol and Drug Abuse Patient Records regulations: The Federal rules restrict any use of the information to criminally investigate or prosecute any alcohol or drug abuse patient.[facility] CenterIn the event this information is protected by the Federal Confidentiality of Alcohol and Drug Abuse Patient Records regulations: The Federal rules restrict any use of the information to criminally investigate or prosecute any alcohol or drug abuse patient.[facility] CenterIn the event this information is protected by the Federal Confidentiality of Alcohol and Drug Abuse Patient Records regulations: The Federal rules restrict any use of the information to criminally investigate or prosecute any alcohol or drug abuse patient.[facility] CenterIn the event this information is protected by the Federal Confidentiality of Alcohol and Drug Abuse Patient Records regulations: The Federal rules restrict any use of the information to criminally investigate or prosecute any alcohol or drug abuse patient.[facility] CenterIn the event this information is protected by the Federal Confidentiality of Alcohol and Drug Abuse Patient Records regulations: The Federal rules restrict any use of the information to criminally investigate or prosecute any alcohol or drug abuse patient.[facility] CenterIn the event this information is protected by the Federal Confidentiality of Alcohol and Drug Abuse Patient Records regulations: The Federal rules restrict any use of the information to criminally investigate or prosecute any alcohol or drug abuse patient.[facility] CenterIn the event this information is protected by the Federal Confidentiality of Alcohol and Drug Abuse Patient Records regulations: The Federal rules restrict any use of the information to criminally investigate or prosecute any alcohol or drug abuse patient.[facility] CenterIn the event this information is protected by the Federal Confidentiality of Alcohol and Drug Abuse Patient Records regulations: The Federal rules restrict any use of the information to criminally investigate or prosecute any alcohol or drug abuse patient.[facility] CenterIn the event this information is protected by the Federal Confidentiality of Alcohol and Drug Abuse Patient Records regulations: The Federal rules restrict any use of the information to criminally investigate or prosecute any alcohol or drug abuse patient.[facility] CenterIn the event this information is protected by the Federal Confidentiality of Alcohol and Drug Abuse Patient Records regulations: The Federal rules restrict any use of the information to criminally investigate or prosecute any alcohol or drug abuse patient.[facility] CenterIn the event this information is protected by the Federal Confidentiality of Alcohol and Drug Abuse Patient Records regulations: The Federal rules restrict any use of the information to criminally investigate or prosecute any alcohol or drug abuse patient.[facility] CenterIn the event this information is protected by the Federal Confidentiality of Alcohol and Drug Abuse Patient Records regulations: The Federal rules restrict any use of the information to criminally investigate or prosecute any alcohol or drug abuse patient.[facility] CenterIn the event this information is protected by the Federal Confidentiality of Alcohol and Drug Abuse Patient Records regulations: The Federal rules restrict any use of the information to criminally investigate or prosecute any alcohol or drug abuse patient.[facility] CenterIn the event this information is protected by the Federal Confidentiality of Alcohol and Drug Abuse Patient Records regulations: The Federal rules restrict any use of the information to criminally investigate or prosecute any alcohol or drug abuse patient.[facility] CenterIn the event this information is protected by the Federal Confidentiality of Alcohol and Drug Abuse Patient Records regulations: The Federal rules restrict any use of the information to criminally investigate or prosecute any alcohol or drug abuse patient.[facility] CenterIn the event this information is protected by the Federal Confidentiality of Alcohol and Drug Abuse Patient Records regulations: The Federal rules restrict any use of the information to criminally investigate or prosecute any alcohol or drug abuse patient.[facility] CenterIn the event this information is protected by the Federal Confidentiality of Alcohol and Drug Abuse Patient Records regulations: The Federal rules restrict any use of the information to criminally investigate or prosecute any alcohol or drug abuse patient.[facility] CenterIn the event this information is protected by the Federal Confidentiality of Alcohol and Drug Abuse Patient Records regulations: The Federal rules restrict any use of the information to criminally investigate or prosecute any alcohol or drug abuse patient.[facility] CenterIn the event this information is protected by the Federal Confidentiality of Alcohol and Drug Abuse Patient Records regulations: The Federal rules restrict any use of the information to criminally investigate or prosecute any alcohol or drug abuse patient.[facility] CenterIn the event this information is protected by the Federal Confidentiality of Alcohol and Drug Abuse Patient Records regulations: The Federal rules restrict any use of the information to criminally investigate or prosecute any alcohol or drug abuse patient.[facility] CenterIn the event this information is protected by the Federal Confidentiality of Alcohol and Drug Abuse Patient Records regulations: The Federal rules restrict any use of the information to criminally investigate or prosecute any alcohol or drug abuse patient.[facility] CenterIn the event this information is protected by the Federal Confidentiality of Alcohol and Drug Abuse Patient Records regulations: The Federal rules restrict any use of the information to criminally investigate or prosecute any alcohol or drug abuse patient.[facility] CenterIn the event this information is protected by the Federal Confidentiality of Alcohol and Drug Abuse Patient Records regulations: The Federal rules restrict any use of the information to criminally investigate or prosecute any alcohol or drug abuse patient.[facility] CenterIn the event this information is protected by the Federal Confidentiality of Alcohol and Drug Abuse Patient Records regulations: The Federal rules restrict any use of the information to criminally investigate or prosecute any alcohol or drug abuse patient.[facility] CenterIn the event this information is protected by the Federal Confidentiality of Alcohol and Drug Abuse Patient Records regulations: The Federal rules restrict any use of the information to criminally investigate or prosecute any alcohol or drug abuse patient.[facility] CenterIn the event this information is protected by the Federal Confidentiality of Alcohol and Drug Abuse Patient Records regulations: The Federal rules restrict any use of the information to criminally investigate or prosecute any alcohol or drug abuse patient.[facility] CenterIn the event this information is protected by the Federal Confidentiality of Alcohol and Drug Abuse Patient Records regulations: The Federal rules restrict any use of the information to criminally investigate or prosecute any alcohol or drug abuse patient.[facility] CenterIn the event this information is protected by the Federal Confidentiality of Alcohol and Drug Abuse Patient Records regulations: The Federal rules restrict any use of the information to criminally investigate or prosecute any alcohol or drug abuse patient.[facility] CenterIn the event this information is protected by the Federal Confidentiality of Alcohol and Drug Abuse Patient Records regulations: The Federal rules restrict any use of the information to criminally investigate or prosecute any alcohol or drug abuse patient.[facility] CenterIn the event this information is protected by the Federal Confidentiality of Alcohol and Drug Abuse Patient Records regulations: The Federal rules restrict any use of the information to criminally investigate or prosecute any alcohol or drug abuse patient.[facility] CenterIn the event this information is protected by the Federal Confidentiality of Alcohol and Drug Abuse Patient Records regulations: The Federal rules restrict any use of the information to criminally investigate or prosecute any alcohol or drug abuse patient.[facility] CenterIn the event this information is protected by the Federal Confidentiality of Alcohol and Drug Abuse Patient Records regulations: The Federal rules restrict any use of the information to criminally investigate or prosecute any alcohol or drug abuse patient.[facility] CenterIn the event this information is protected by the Federal Confidentiality of Alcohol and Drug Abuse Patient Records regulations: The Federal rules restrict any use of the information to criminally investigate or prosecute any alcohol or drug abuse patient.[facility] CenterIn the event this information is protected by the Federal Confidentiality of Alcohol and Drug Abuse Patient Records regulations: The Federal rules restrict any use of the information to criminally investigate or prosecute any alcohol or drug abuse patient.[facility] CenterIn the event this information is protected by the Federal Confidentiality of Alcohol and Drug Abuse Patient Records regulations: The Federal rules restrict any use of the information to criminally investigate or prosecute any alcohol or drug abuse patient.[facility] CenterIn the event this information is protected by the Federal Confidentiality of Alcohol and Drug Abuse Patient Records regulations: The Federal rules restrict any use of the information to criminally investigate or prosecute any alcohol or drug abuse patient.[facility] CenterIn the event this information is protected by the Federal Confidentiality of Alcohol and Drug Abuse Patient Records regulations: The Federal rules restrict any use of the information to criminally investigate or prosecute any alcohol or drug abuse patient.[facility] CenterIn the event this information is protected by the Federal Confidentiality of Alcohol and Drug Abuse Patient Records regulations: The Federal rules restrict any use of the information to criminally investigate or prosecute any alcohol or drug abuse patient.[facility] CenterIn the event this information is protected by the Federal Confidentiality of Alcohol and Drug Abuse Patient Records regulations: The Federal rules restrict any use of the information to criminally investigate or prosecute any alcohol or drug abuse patient.[facility] CenterIn the event this information is protected by the Federal Confidentiality of Alcohol and Drug Abuse Patient Records regulations: The Federal rules restrict any use of the information to criminally investigate or prosecute any alcohol or drug abuse patient.[facility] CenterIn the event this information is protected by the Federal Confidentiality of Alcohol and Drug Abuse Patient Records regulations: The Federal rules restrict any use of the information to criminally investigate or prosecute any alcohol or drug abuse patient.[facility] CenterIn the event this information is protected by the Federal Confidentiality of Alcohol and Drug Abuse Patient Records regulations: The Federal rules restrict any use of the information to criminally investigate or prosecute any alcohol or drug abuse patient.[facility] CenterIn the event this information is protected by the Federal Confidentiality of Alcohol and Drug Abuse Patient Records regulations: The Federal rules restrict any use of the information to criminally investigate or prosecute any alcohol or drug abuse patient.[facility] CenterIn the event this information is protected by the Federal Confidentiality of Alcohol and Drug Abuse Patient Records regulations: The Federal rules restrict any use of the information to criminally investigate or prosecute any alcohol or drug abuse patient.[facility] CenterIn the event this information is protected by the Federal Confidentiality of Alcohol and Drug Abuse Patient Records regulations: The Federal rules restrict any use of the information to criminally investigate or prosecute any alcohol or drug abuse patient.[facility] CenterIn the event this information is protected by the Federal Confidentiality of Alcohol and Drug Abuse Patient Records regulations: The Federal rules restrict any use of the information to criminally investigate or prosecute any alcohol or drug abuse patient.[facility] CenterIn the event this information is protected by the Federal Confidentiality of Alcohol and Drug Abuse Patient Records regulations: The Federal rules restrict any use of the information to criminally investigate or prosecute any alcohol or drug abuse patient.[facility] CenterIn the event this information is protected by the Federal Confidentiality of Alcohol and Drug Abuse Patient Records regulations: The Federal rules restrict any use of the information to criminally investigate or prosecute any alcohol or drug abuse patient.[facility] CenterIn the event this information is protected by the Federal Confidentiality of Alcohol and Drug Abuse Patient Records regulations: The Federal rules restrict any use of the information to criminally investigate or prosecute any alcohol or drug abuse patient.[facility] CenterIn the event this information is protected by the Federal Confidentiality of Alcohol and Drug Abuse Patient Records regulations: The Federal rules restrict any use of the information to criminally investigate or prosecute any alcohol or drug abuse patient.[facility] CenterIn the event this information is protected by the Federal Confidentiality of Alcohol and Drug Abuse Patient Records regulations: The Federal rules restrict any use of the information to criminally investigate or prosecute any alcohol or drug abuse patient.[facility] CenterIn the event this information is protected by the Federal Confidentiality of Alcohol and Drug Abuse Patient Records regulations: The Federal rules restrict any use of the information to criminally investigate or prosecute any alcohol or drug abuse patient.[facility] CenterIn the event this information is protected by the Federal Confidentiality of Alcohol and Drug Abuse Patient Records regulations: The Federal rules restrict any use of the information to criminally investigate or prosecute any alcohol or drug abuse patient.[facility] CenterIn the event this information is protected by the Federal Confidentiality of Alcohol and Drug Abuse Patient Records regulations: The Federal rules restrict any use of the information to criminally investigate or prosecute any alcohol or drug abuse patient.[facility] CenterIn the event this information is protected by the Federal Confidentiality of Alcohol and Drug Abuse Patient Records regulations: The Federal rules restrict any use of the information to criminally investigate or prosecute any alcohol or drug abuse patient.[facility] CenterIn the event this information is protected by the Federal Confidentiality of Alcohol and Drug Abuse Patient Records regulations: The Federal rules restrict any use of the information to criminally investigate or prosecute any alcohol or drug abuse patient.[facility] CenterIn the event this information is protected by the Federal Confidentiality of Alcohol and Drug Abuse Patient Records regulations: The Federal rules restrict any use of the information to criminally investigate or prosecute any alcohol or drug abuse patient.[facility] CenterIn the event this information is protected by the Federal Confidentiality of Alcohol and Drug Abuse Patient Records regulations: The Federal rules restrict any use of the information to criminally investigate or prosecute any alcohol or drug abuse patient.[facility] CenterIn the event this information is protected by the Federal Confidentiality of Alcohol and Drug Abuse Patient Records regulations: The Federal rules restrict any use of the information to criminally investigate or prosecute any alcohol or drug abuse patient.[facility] CenterIn the event this information is protected by the Federal Confidentiality of Alcohol and Drug Abuse Patient Records regulations: The Federal rules restrict any use of the information to criminally investigate or prosecute any alcohol or drug abuse patient.[facility] CenterIn the event this information is protected by the Federal Confidentiality of Alcohol and Drug Abuse Patient Records regulations: The Federal rules restrict any use of the information to criminally investigate or prosecute any alcohol or drug abuse patient.[facility] CenterIn the event this information is protected by the Federal Confidentiality of Alcohol and Drug Abuse Patient Records regulations: The Federal rules restrict any use of the information to criminally investigate or prosecute any alcohol or drug abuse patient.[facility] CenterIn the event this information is protected by the Federal Confidentiality of Alcohol and Drug Abuse Patient Records regulations: The Federal rules restrict any use of the information to criminally investigate or prosecute any alcohol or drug abuse patient.[facility] CenterIn the event this information is protected by the Federal Confidentiality of Alcohol and Drug Abuse Patient Records regulations: The Federal rules restrict any use of the information to criminally investigate or prosecute any alcohol or drug abuse patient.[facility] CenterIn the event this information is protected by the Federal Confidentiality of Alcohol and Drug Abuse Patient Records regulations: The Federal rules restrict any use of the information to criminally investigate or prosecute any alcohol or drug abuse patient.[facility] CenterIn the event this information is protected by the Federal Confidentiality of Alcohol and Drug Abuse Patient Records regulations: The Federal rules restrict any use of the information to criminally investigate or prosecute any alcohol or drug abuse patient.[facility] CenterIn the event this information is protected by the Federal Confidentiality of Alcohol and Drug Abuse Patient Records regulations: The Federal rules restrict any use of the information to criminally investigate or prosecute any alcohol or drug abuse patient.[facility] CenterIn the event this information is protected by the Federal Confidentiality of Alcohol and Drug Abuse Patient Records regulations: The Federal rules restrict any use of the information to criminally investigate or prosecute any alcohol or drug abuse patient.[facility] CenterIn the event this information is protected by the Federal Confidentiality of Alcohol and Drug Abuse Patient Records regulations: The Federal rules restrict any use of the information to criminally investigate or prosecute any alcohol or drug abuse patient.[facility] CenterIn the event this information is protected by the Federal Confidentiality of Alcohol and Drug Abuse Patient Records regulations: The Federal rules restrict any use of the information to criminally investigate or prosecute any alcohol or drug abuse patient.[facility] CenterIn the event this information is protected by the Federal Confidentiality of Alcohol and Drug Abuse Patient Records regulations: The Federal rules restrict any use of the information to criminally investigate or prosecute any alcohol or drug abuse patient.[facility] CenterIn the event this information is protected by the Federal Confidentiality of Alcohol and Drug Abuse Patient Records regulations: The Federal rules restrict any use of the information to criminally investigate or prosecute any alcohol or drug abuse patient.[facility] CenterIn the event this information is protected by the Federal Confidentiality of Alcohol and Drug Abuse Patient Records regulations: The Federal rules restrict any use of the information to criminally investigate or prosecute any alcohol or drug abuse patient.[facility] CenterIn the event this information is protected by the Federal Confidentiality of Alcohol and Drug Abuse Patient Records regulations: The Federal rules restrict any use of the information to criminally investigate or prosecute any alcohol or drug abuse patient.[facility] CenterIn the event this information is protected by the Federal Confidentiality of Alcohol and Drug Abuse Patient Records regulations: The Federal rules restrict any use of the information to criminally investigate or prosecute any alcohol or drug abuse patient.[facility] CenterIn the event this information is protected by the Federal Confidentiality of Alcohol and Drug Abuse Patient Records regulations: The Federal rules restrict any use of the information to criminally investigate or prosecute any alcohol or drug abuse patient.[facility] CenterIn the event this information is protected by the Federal Confidentiality of Alcohol and Drug Abuse Patient Records regulations: The Federal rules restrict any use of the information to criminally investigate or prosecute any alcohol or drug abuse patient.[facility] CenterIn the event this information is protected by the Federal Confidentiality of Alcohol and Drug Abuse Patient Records regulations: The Federal rules restrict any use of the information to criminally investigate or prosecute any alcohol or drug abuse patient.[facility] CenterIn the event this information is protected by the Federal Confidentiality of Alcohol and Drug Abuse Patient Records regulations: The Federal rules restrict any use of the information to criminally investigate or prosecute any alcohol or drug abuse patient.[facility] CenterIn the event this information is protected by the Federal Confidentiality of Alcohol and Drug Abuse Patient Records regulations: The Federal rules restrict any use of the information to criminally investigate or prosecute any alcohol or drug abuse patient.[facility] CenterIn the event this information is protected by the Federal Confidentiality of Alcohol and Drug Abuse Patient Records regulations: The Federal rules restrict any use of the information to criminally investigate or prosecute any alcohol or drug abuse patient.[facility] CenterIn the event this information is protected by the Federal Confidentiality of Alcohol and Drug Abuse Patient Records regulations: The Federal rules restrict any use of the information to criminally investigate or prosecute any alcohol or drug abuse patient.[facility] CenterIn the event this information is protected by the Federal Confidentiality of Alcohol and Drug Abuse Patient Records regulations: The Federal rules restrict any use of the information to criminally investigate or prosecute any alcohol or drug abuse patient.[facility] CenterIn the event this information is protected by the Federal Confidentiality of Alcohol and Drug Abuse Patient Records regulations: The Federal rules restrict any use of the information to criminally investigate or prosecute any alcohol or drug abuse patient.[facility] CenterIn the event this information is protected by the Federal Confidentiality of Alcohol and Drug Abuse Patient Records regulations: The Federal rules restrict any use of the information to criminally investigate or prosecute any alcohol or drug abuse patient.[facility] CenterIn the event this information is protected by the Federal Confidentiality of Alcohol and Drug Abuse Patient Records regulations: The Federal rules restrict any use of the information to criminally investigate or prosecute any alcohol or drug abuse patient.[facility] CenterIn the event this information is protected by the Federal Confidentiality of Alcohol and Drug Abuse Patient Records regulations: The Federal rules restrict any use of the information to criminally investigate or prosecute any alcohol or drug abuse patient.[facility] CenterIn the event this information is protected by the Federal Confidentiality of Alcohol and Drug Abuse Patient Records regulations: The Federal rules restrict any use of the information to criminally investigate or prosecute any alcohol or drug abuse patient.[facility] CenterIn the event this information is protected by the Federal Confidentiality of Alcohol and Drug Abuse Patient Records regulations: The Federal rules restrict any use of the information to criminally investigate or prosecute any alcohol or drug abuse patient.[facility] CenterIn the event this information is protected by the Federal Confidentiality of Alcohol and Drug Abuse Patient Records regulations: The Federal rules restrict any use of the information to criminally investigate or prosecute any alcohol or drug abuse patient.[facility] CenterIn the event this information is protected by the Federal Confidentiality of Alcohol and Drug Abuse Patient Records regulations: The Federal rules restrict any use of the information to criminally investigate or prosecute any alcohol or drug abuse patient.[facility] CenterIn the event this information is protected by the Federal Confidentiality of Alcohol and Drug Abuse Patient Records regulations: The Federal rules restrict any use of the information to criminally investigate or prosecute any alcohol or drug abuse patient.[facility] CenterIn the event this information is protected by the Federal Confidentiality of Alcohol and Drug Abuse Patient Records regulations: The Federal rules restrict any use of the information to criminally investigate or prosecute any alcohol or drug abuse patient.[facility] CenterIn the event this information is protected by the Federal Confidentiality of Alcohol and Drug Abuse Patient Records regulations: The Federal rules restrict any use of the information to criminally investigate or prosecute any alcohol or drug abuse patient.[facility] CenterIn the event this information is protected by the Federal Confidentiality of Alcohol and Drug Abuse Patient Records regulations: The Federal rules restrict any use of the information to criminally investigate or prosecute any alcohol or drug abuse patient.[facility] CenterIn the event this information is protected by the Federal Confidentiality of Alcohol and Drug Abuse Patient Records regulations: The Federal rules restrict any use of the information to criminally investigate or prosecute any alcohol or drug abuse patient.[facility] CenterIn the event this information is protected by the Federal Confidentiality of Alcohol and Drug Abuse Patient Records regulations: The Federal rules restrict any use of the information to criminally investigate or prosecute any alcohol or drug abuse patient.[facility] CenterIn the event this information is protected by the Federal Confidentiality of Alcohol and Drug Abuse Patient Records regulations: The Federal rules restrict any use of the information to criminally investigate or prosecute any alcohol or drug abuse patient.[facility] CenterIn the event this information is protected by the Federal Confidentiality of Alcohol and Drug Abuse Patient Records regulations: The Federal rules restrict any use of the information to criminally investigate or prosecute any alcohol or drug abuse patient.[facility] CenterIn the event this information is protected by the Federal Confidentiality of Alcohol and Drug Abuse Patient Records regulations: The Federal rules restrict any use of the information to criminally investigate or prosecute any alcohol or drug abuse patient.[facility] CenterIn the event this information is protected by the Federal Confidentiality of Alcohol and Drug Abuse Patient Records regulations: The Federal rules restrict any use of the information to criminally investigate or prosecute any alcohol or drug abuse patient.[facility] CenterIn the event this information is protected by the Federal Confidentiality of Alcohol and Drug Abuse Patient Records regulations: The Federal rules restrict any use of the information to criminally investigate or prosecute any alcohol or drug abuse patient.[facility] CenterIn the event this information is protected by the Federal Confidentiality of Alcohol and Drug Abuse Patient Records regulations: The Federal rules restrict any use of the information to criminally investigate or prosecute any alcohol or drug abuse patient.[facility] CenterIn the event this information is protected by the Federal Confidentiality of Alcohol and Drug Abuse Patient Records regulations: The Federal rules restrict any use of the information to criminally investigate or prosecute any alcohol or drug abuse patient.[facility] CenterIn the event this information is protected by the Federal Confidentiality of Alcohol and Drug Abuse Patient Records regulations: The Federal rules restrict any use of the information to criminally investigate or prosecute any alcohol or drug abuse patient.[facility] CenterIn the event this information is protected by the Federal Confidentiality of Alcohol and Drug Abuse Patient Records regulations: The Federal rules restrict any use of the information to criminally investigate or prosecute any alcohol or drug abuse patient.[facility] CenterIn the event this information is protected by the Federal Confidentiality of Alcohol and Drug Abuse Patient Records regulations: The Federal rules restrict any use of the information to criminally investigate or prosecute any alcohol or drug abuse patient.[facility] CenterIn the event this information is protected by the Federal Confidentiality of Alcohol and Drug Abuse Patient Records regulations: The Federal rules restrict any use of the information to criminally investigate or prosecute any alcohol or drug abuse patient.[facility] CenterIn the event this information is protected by the Federal Confidentiality of Alcohol and Drug Abuse Patient Records regulations: The Federal rules restrict any use of the information to criminally investigate or prosecute any alcohol or drug abuse patient.[facility] CenterIn the event this information is protected by the Federal Confidentiality of Alcohol and Drug Abuse Patient Records regulations: The Federal rules restrict any use of the information to criminally investigate or prosecute any alcohol or drug abuse patient.[facility] CenterIn the event this information is protected by the Federal Confidentiality of Alcohol and Drug Abuse Patient Records regulations: The Federal rules restrict any use of the information to criminally investigate or prosecute any alcohol or drug abuse patient.[facility] CenterIn the event this information is protected by the Federal Confidentiality of Alcohol and Drug Abuse Patient Records regulations: The Federal rules restrict any use of the information to criminally investigate or prosecute any alcohol or drug abuse patient.[facility] CenterIn the event this information is protected by the Federal Confidentiality of Alcohol and Drug Abuse Patient Records regulations: The Federal rules restrict any use of the information to criminally investigate or prosecute any alcohol or drug abuse patient.[facility] CenterIn the event this information is protected by the Federal Confidentiality of Alcohol and Drug Abuse Patient Records regulations: The Federal rules restrict any use of the information to criminally investigate or prosecute any alcohol or drug abuse patient.[facility] CenterIn the event this information is protected by the Federal Confidentiality of Alcohol and Drug Abuse Patient Records regulations: The Federal rules restrict any use of the information to criminally investigate or prosecute any alcohol or drug abuse patient.[facility] CenterIn the event this information is protected by the Federal Confidentiality of Alcohol and Drug Abuse Patient Records regulations: The Federal rules restrict any use of the information to criminally investigate or prosecute any alcohol or drug abuse patient.[facility] CenterIn the event this information is protected by the Federal Confidentiality of Alcohol and Drug Abuse Patient Records regulations: The Federal rules restrict any use of the information to criminally investigate or prosecute any alcohol or drug abuse patient.[facility] CenterIn the event this information is protected by the Federal Confidentiality of Alcohol and Drug Abuse Patient Records regulations: The Federal rules restrict any use of the information to criminally investigate or prosecute any alcohol or drug abuse patient.[facility] CenterIn the event this information is protected by the Federal Confidentiality of Alcohol and Drug Abuse Patient Records regulations: The Federal rules restrict any use of the information to criminally investigate or prosecute any alcohol or drug abuse patient.[facility] CenterIn the event this information is protected by the Federal Confidentiality of Alcohol and Drug Abuse Patient Records regulations: The Federal rules restrict any use of the information to criminally investigate or prosecute any alcohol or drug abuse patient.[facility] CenterIn the event this information is protected by the Federal Confidentiality of Alcohol and Drug Abuse Patient Records regulations: The Federal rules restrict any use of the information to criminally investigate or prosecute any alcohol or drug abuse patient.[facility] CenterIn the event this information is protected by the Federal Confidentiality of Alcohol and Drug Abuse Patient Records regulations: The Federal rules restrict any use of the information to criminally investigate or prosecute any alcohol or drug abuse patient.[facility] CenterIn the event this information is protected by the Federal Confidentiality of Alcohol and Drug Abuse Patient Records regulations: The Federal rules restrict any use of the information to criminally investigate or prosecute any alcohol or drug abuse patient.[facility] CenterIn the event this information is protected by the Federal Confidentiality of Alcohol and Drug Abuse Patient Records regulations: The Federal rules restrict any use of the information to criminally investigate or prosecute any alcohol or drug abuse patient.[facility] CenterIn the event this information is protected by the Federal Confidentiality of Alcohol and Drug Abuse Patient Records regulations: The Federal rules restrict any use of the information to criminally investigate or prosecute any alcohol or drug abuse patient.[facility] CenterIn the event this information is protected by the Federal Confidentiality of Alcohol and Drug Abuse Patient Records regulations: The Federal rules restrict any use of the information to criminally investigate or prosecute any alcohol or drug abuse patient.[facility] CenterIn the event this information is protected by the Federal Confidentiality of Alcohol and Drug Abuse Patient Records regulations: The Federal rules restrict any use of the information to criminally investigate or prosecute any alcohol or drug abuse patient.[facility] CenterIn the event this information is protected by the Federal Confidentiality of Alcohol and Drug Abuse Patient Records regulations: The Federal rules restrict any use of the information to criminally investigate or prosecute any alcohol or drug abuse patient.[facility] CenterIn the event this information is protected by the Federal Confidentiality of Alcohol and Drug Abuse Patient Records regulations: The Federal rules restrict any use of the information to criminally investigate or prosecute any alcohol or drug abuse patient.[facility] CenterIn the event this information is protected by the Federal Confidentiality of Alcohol and Drug Abuse Patient Records regulations: The Federal rules restrict any use of the information to criminally investigate or prosecute any alcohol or drug abuse patient.[facility] CenterIn the event this information is protected by the Federal Confidentiality of Alcohol and Drug Abuse Patient Records regulations: The Federal rules restrict any use of the information to criminally investigate or prosecute any alcohol or drug abuse patient.[facility] CenterIn the event this information is protected by the Federal Confidentiality of Alcohol and Drug Abuse Patient Records regulations: The Federal rules restrict any use of the information to criminally investigate or prosecute any alcohol or drug abuse patient.[facility] CenterIn the event this information is protected by the Federal Confidentiality of Alcohol and Drug Abuse Patient Records regulations: The Federal rules restrict any use of the information to criminally investigate or prosecute any alcohol or drug abuse patient.[facility] Reason for Visit (unrecogniz ed section and content) Reason Comments Established Patient Pembro and follow up Specialty Diagnoses / Procedures Referred By Contelizabeth t Referred To Contact Hematology/Oncology / HEMATOLOGY/ONCOLOGY Diagnoses OV ; TX after Procedures EST PATIENT GrahamSaLamin B [address] [place] [address] Sylvia Mancilla APRN.CLINICAL TRIAL DATA MANAGER [address] [place] [address] Referral ID Status Reason Start Date Expiration Date V isits Requested Visits Authorized [id number] Authorized 10/25/2021 01/22/2022 99 99 Reason Comments Chemotherapy Treatment keytruda Specialty Diagnoses / Procedures Referred By Contac t Referred To Contact 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) Procedures [place] [address] [place] [address] [facility] [id number] [place] [id number] Referral ID Status Reason Start Date Expiration Date V isits Requested Visits Authorized [id number] Authorized 12/11/2019 04/24/2022 99 99 Reason Comments Refill Request Reason Comments Established Patient Pain Anxiety Reason Comments Chemotherapy Treatment Specialty Diagnoses / Procedures Referred By [facility] Referred To Contact 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) [place] [address] [place] [id number] [address] [address] Referral ID Status Reason Start Date Expiration Date V isits Requested Visits Authorized [id number] Authorized 12/11/2019 03/10/2020 1 1 Reason Comments Novelty Maker - Other Reason Onset Date Comments Refill Request 05/17/2021 Reason Comments Care Coordination sinus symptoms Reason Onset Date Comments Refill Request 06/06/2021 Reason Onset Date Comments Refill Request 06/15/2021 Reason Onset Date Comments Refill Request 06/30/2021 Specialty Diagnoses / Procedures Referred By [facility] Referred To Contact 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) [place] [address] [place] [address] [facility] [id number] [place] [id number] Reason Onset Date Comments Refill Request 2021 Reason Comments LESION, SKIN Reason Comments Care Coordination Pall med referral Reason Onset Date Comments Refill Request 08/14/2021 Reason Onset Date Comments Refill Request 08/30/2021 Reason Onset Date Comments Refill Request 09/02/2021 Reason Onset Date Comments Refill Request 09/03/2021 Reason Comments Derm Problem Hs lesions Reason Onset Date Comments Refill Request 09/11/2021 Reason Comments Novelty Maker - ED Follow Up Reason Onset Date Comments Refill Request 10/04/2021 Reason Onset Date Comments Refill Request 10/16/2021 Reason Comments Established Patient Pembro infusion Specialty Diagnoses / Procedures Referred By Contac t Referred To Contact Hematology/Oncology / HEMATOLOGY/ONCOLOGY Diagnoses OV ; TX after Procedures EST PATIENT Lamin Stevenson [address] [place] [address] Sylvia Mancilla APRN.CLINICAL TRIAL DATA MANAGER [address] [place] [address] Reason Comments Follow Up Pain Insomnia Reason Onset Date Comments Refill Request 10/31/2021 Reason Onset Date Comments Refill Request 11/07/2021 Reason Comments Orders Reason Comments Established Patient Specialty Diagnoses / Procedures Referred By Contac t Referred To Contact 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) Procedures [place] [address] [place] [address] [facility] [place] [address] [address] [place] [address] Referral ID Status Reason Start Date Expiration Date V isits Requested Visits Authorized [id number] Pending Review 12/11/2019 04/24/2022 99 99 Reason Onset Date Comments Refill Request 12/04/2021 Reason Comments Acne Specialty Diagnoses / Procedures Referred By Contac t Referred To Contact Dermatology / DERMATOLOGY Diagnoses ACNE Procedures EST [facility] GENERAL Self Nova Bridges, LORY.CLINICAL TRIAL DATA MANAGER [address] [place] [address] Referral ID Status Reason Start Date Expiration Date V isits Requested Visits Authorized [id number] Closed Financial Clearance Required - [employer] 12/07/2021 02/17/2022 1 1 Reason Onset Date Comments Refill Request 12/11/2021 Reason Onset Date Comments Refill Request 12/17/2021 Reason Comments Care Coordination Reason Onset Date Comments Refill Request 01/14/2022 Reason Onset Date Comments Refill Request 01/15/2022 Reason Onset Date Comments Refill Request 01/19/2022 Reason Comments Pain Follow Up Reason Onset Date Comments Refill Request 03/05/2022 Reason Comments Established Patient Specialty Diagnoses / Procedures Referred By Heidi t Referred To Contact Hematology/Oncology / HEMATOLOGY/ONCOLOGY Diagnoses ov after petscan move 02/28 to 03/07 1130 w/ Mayr and infusion after [place] [address] [place] [address] [place] [address] [place] [address] Referral ID Status Reason Start Date Expiration Date Visits Re quested Visits Authorized [id number] Closed 02/27/2022 03/30/2022 1 1 Reason Onset Date Comments Refill Request 03/15/2022 Reason Comments Cancer Reason Comments Patient Education Reason Comments Chemotherapy Treatment Keytruda Referral ID Status Reason Start Date Expiration Date V isits Requested Visits Authorized [id number] Authorized 12/11/2019 10/26/2022 99 99 Reason Onset Date Comments Refill Request 04/16/2022 Reason Comments Post Radiation Treatment Follow Up Reason Comments Follow Up Pain Reason Comments Post Radiation Treatment Follow Up Secon d attempt Reason Onset Date Comments Refill Request 05/14/2022 Reason Comments No Show Specialty Diagnoses / Procedures Referred By Heidi george Referred To Contact Hematology/Oncology / HEMATOLOGY/ONCOLOGY Diagnoses Acute cough OV with Dr. Ramires on 06/12 Procedures OFFICE/OUTPATIENT NEW HIGH MDM 60-74 MINUTES OFFICE/OUTPATIENT ESTABLISHED HIGH MDM 40-54 MIN EST PATIENT Jose Vail MD [address] [place] [address] [place] [address] [place] [address] Referral ID Status Reason Start Date Expiration Date V isits Requested Visits Authorized [id number] Authorized 05/23/2022 05/24/2023 99 99 Reason Onset Date Comments Refill Request 06/11/2022 Reason Comments New Medication Reason Onset Date Comments Refill Request 07/16/[address] Specialty Diagnoses / Procedures Referred By Contac t Referred To Contact Hematology/Oncology / HEMATOLOGY/ONCOLOGY Diagnoses Acute cough OV with Dr. Ramires on 06/12 Procedures OFFICE/OUTPATIENT NEW HIGH MDM 60-74 MINUTES OFFICE/OUTPATIENT ESTABLISHED HIGH MDM 40-54 MIN EST PATIENT Jose Vail MD [address] [place] [address] [place] [address] [place] [address] Reason Comments Dyspnea On Exertion Simple chronic bronchitis History of pulmonary embolism Specialty Diagnoses / Procedures Referred By Contac t Referred To Contact Pulmonary Disease / PULMONARY MEDICINE Diagnoses Encounter for follow-up examination after completed treatment for conditions other than malignant neoplasm 6-8 weels with SARAH, after CT, pt requesting to do CT closer to home Procedures OFFICE/OUTPATIENT ESTABLISHED SF MDM 10-19 MIN OFFICE/OUTPATIENT ESTABLISHED LOW MDM 20-29 MIN OFFICE/OUTPATIENT ESTABLISHED MOD MDM 30-39 MIN OFFICE/OUTPATIENT ESTABLISHED HIGH MDM 40-54 MIN RI EST PULM GENERAL Jose Vail MD [address] [place] [address] Ella Chan, LORY.[facility] [address] [place] [address] Referral ID Status Reason Start Date Expiration Date Visits Re quested Visits Authorized [id number] Closed 06/26/2022 06/27/2023 1 1 Reason Comments Patient Update Reason Onset Date Comments Refill Request 08/07/2022 Reason Onset Date Comments Refill Request 08/09/2022 Reason Onset Date Comments Refill Request 08/13/2022 Reason Onset Date Comments Refill Request 08/27/2022 Reason Comments Follow Up Specialty Diagnoses / Procedures Referred By Contac t Referred To Contact Pulmonary Disease / PULMONARY MEDICINE Diagnoses Nodular sclerosis Hodgkin lymphoma, unspecified site Follow up with Pulmonary SOB Procedures OFFICE/OUTPATIENT NEW HIGH MDM 60-74 MINUTES OFFICE/OUTPATIENT ESTABLISHED HIGH MDM 40-54 MIN RI EST PULM GENERAL Jose Vail MD [address] [place] [address] Ella Chan, LORY.CLINICAL TRIAL DATA MANAGER [address] [place] [address] Referral ID Status Reason Start Date Expiration Date V isits Requested Visits Authorized [id number] Authorized 05/22/2022 05/23/2023 99 99 Specialty Diagnoses / Procedures Referred By Valerieac t Referred To Contact CT IMAGING Diagnoses Acute cough Procedures CT CHEST WO IVCON DIAGNOSTIC COMPUTED TOMOGRAPHY THORAX W/[place] [address] [place] [address] Ct Imaging Referral ID Status Reason Start Date Expiration Date V isits Requested Visits Authorized [id number] Closed Auto-Generate d Referral 05/22/2022 06/21/2023 1 1 Reason Onset Date Comments Refill Request 10/06/2022 Reason Onset Date Comments Refill Request 09/10/2022 Reason Onset Date Comments Refill Request 10/08/2022 Reason Onset Date Comments Refill Request 10/01/2022 Reason Comments Insurance Authorization Reason Onset Date Comments Refill Request 11/05/2022 Reason Onset Date Comments Refill Request 11/08/2022 Reason Onset Date Comments Refill Request 11/28/2022 Reason Comments Lymphoma New patient consulta tion Specialty Diagnoses / Procedures Referred By Heidi t Referred To Contact Hematology / HEMATOLOGY/ONCOLOGY Diagnoses Ref by Dr Cyn Ramires due to pt wanting closer to home DX: Hodgkins lymphomaPT REQ BRM Procedures OFFICE/OUTPATIENT [facility] MDM 60-74 MINUTES NEW PATIENT MED ONC Jose Vail MD [address] [place] [address] [place] [address] Alexsander Ledezma MD [address] [place] [address] [place] [address] Referral ID Status Reason Start Date Expiration Date Visits Re quested Visits Authorized [id number] Closed 12/26/2022 12/27/2023 1 1 Reason Comments Results Reason Onset Date Comments Refill Request 01/06/2023 Reason Comments Spirometry Specialty Diagnoses / Procedures [facility] Diagnoses Chronic cough Procedures LUNG DIFFUSION CAPACITY (DLCO) DIFFUSING CAPACITY Ella Chan, PHOTOTYPESETTER OPERATOR.CLINICAL TRIAL DATA MANAGER [address] [place] [address] [facility] [place] [address] [place] [address] Referral ID Status Reason Start Date Expiration Date V isits Requested Visits Authorized [id number] Closed Auto-Generate d Referral 01/08/2023 02/17/2023 1 1 Specialty Diagnoses / Procedures Referred By Contac t Referred To Contact [facility] Diagnoses Bronchitis Procedures NITRIC OXIDE, EXHALED NITRIC OXIDE GAS DETERMINATION Ella Chan, PHOTOTYPESETTER OPERATOR.CLINICAL TRIAL DATA MANAGER [address] [place] [address] [facility] [place] [facility] [place] [address] Referral ID Status Reason Start Date Expiration Date V isits Requested Visits Authorized [id number] Closed Auto-Generate d Referral 01/08/2023 02/17/2023 1 1 Reason Comments Shortness of Breath Wheezing Specialty Diagnoses / Procedures Referred By Contac t Referred To Contact Pulmonary Disease / PULMONARY MEDICINE Diagnoses Bronchitis, not specified as acute or chronic Bronchitis, not specified as acute or chronic [J40] Procedures OFFICE/OUTPATIENT ESTABLISHED HIGH MDM 40 MIN OFFICE/OUTPATIENT ESTABLISHED MOD MDM 30 MIN OFFICE/OUTPATIENT ESTABLISHED LOW MDM 20 MIN OFFICE/OUTPATIENT ESTABLISHED SF MDM 10 MIN RI EST PULM GENERAL Ella Chan, PHOTOTYPESETTER OPERATOR.CLINICAL TRIAL DATA MANAGER [address] [place] [address] Kylie Nunes PHOTOTYPESETTER OPERATOR.CLINICAL TRIAL DATA MANAGER [address] [place] [address] Referral ID Status Reason Start Date Expiration Date Visits Re quested Visits Authorized [id number] Closed 03/12/2023 02/18/2024 1 1 Specialty Diagnoses / Procedures Referred By Contelizabeth t Referred To Contact [facility] Diagnoses Bronchitis, not specified as acute or chronic Procedures SPIROMETRY - BASELINE AND POST DILATOR BRNCDILAT RSPSE SPMTRY PRE&POST-BRNCDILAT ADMN Ella Chan, PHOTOTYPESETTER OPERATOR.CLINICAL TRIAL DATA MANAGER [address] [place] [address] [facility] [address] [facility] [place] [address] Referral ID Status Reason Start Date Expiration Date V isits Requested Visits Authorized [id number] Closed Auto-Generate d Referral 02/14/2023 03/15/2024 1 1 Reason Comments Med Change Request Reason Comments Lab Orders Care Teams (unrecognized sec tion and content) Carpenters Supervisor Relationship Specialty Start Date End Date Jose Vail MD PCP - General Internal Medicine 05/07/16 [place] [address] [place] [address] Consulting Hematology/Oncology 01/28/12 [place] [address] [place] [address] Specialty Novelty Maker Hematology/Oncology 11/09/19 [place] [address] [place] [address] Hematology/Oncology 03/30/21 Carpenters Supervisor Relationship Specialty Start Date End Date Jose Vail MD PCP - General Internal Medicine 05/07/16 [place] [address] [place] [address] Consulting Hematology/Oncology 01/28/12 [place] [address] [place] [address] Specialty Novelty Maker Hematology/Oncology 11/09/19 [place] [address] [place] [address] Hematology/Oncology 03/30/21 Carpenters Supervisor Relationship Specialty Start Date End Date Jose Vail MD PCP - General Internal Medicine 05/07/16 Cyn Ramires MD [id number] [place] [address] Consulting Hematology/Oncology 01/28/12 Mar[place] [id number] [place] [address] Specialty Novelty Maker Hematology/Oncology 11/09/19 Cyn Ramires MD [id number] [place] [address] Hematology/Oncology 03/30/21 Carpenters Supervisor Relationship Specialty Start Date End Date Jose Vail MD PCP - General Internal Medicine 05/07/16 Cyn Ramires MD [id number] [place] [address] Consulting Hematology/Oncology 01/28/12 Marilyn Hughes RN [address] [place] [address] Specialty Novelty Maker Hematology/Oncology 11/09/19 Cyn Ramires MD [address] [place] [address] Hematology/Oncology 03/30/21 Carpenters Supervisor Relationship Specialty Start Date End Date Jose Vail MD PCP - General Internal Medicine 05/07/16 Cyn Ramires MD [id number] [place] [address] Consulting Hematology/Oncology 01/28/12 [place] [address] [place] [address] Specialty Novelty Maker Hematology/Oncology 11/09/19 Cyn Ramires MD [id number] [place] [address] Hematology/Oncology 03/30/21 Carpenters Supervisor Relationship Specialty Start Date End Date Jose Vail MD PCP - General Internal Medicine 05/07/16 Cyn Ramires MD [id number] [place] [address] Consulting Hematology/Oncology 01/28/12 Marilyn Hughes RN [id number] [place] [address] Specialty Novelty Maker Hematology/Oncology 11/09/19 [place] [address] [place] [address] Hematology/Oncology 03/30/21 Carpenters Supervisor Relationship Specialty Start Date End Date Jose Vail MD PCP - General Internal Medicine 05/07/16 Cyn Ramires MD [id number] [place] [address] Consulting Hematology/Oncology 01/28/12 Marilyn Hughes RN [address] [place] [address] Specialty Novelty Maker Hematology/Oncology 11/09/19 [place] [address] [place] [address] Hematology/Oncology 03/30/21 Kristina Pete, MAE Specialty Novelty Maker HOSPICE & PALLIATIVE MEDICINE 05/22/21 Carpenters Supervisor Relationship Specialty Start Date End Date Jose Vail MD PCP - General Internal Medicine 05/07/16 [place] [address] [place] [address] Consulting Hematology/Oncology 01/28/12 Marilyn Hughes, MAE [address] [place] [address] Specialty Novelty Maker Hematology/Oncology 11/09/19 [place] [address] Hematology/Oncology 03/30/21 Kristina Pete, MAE Specialty Novelty Maker HOSPICE & PALLIATIVE MEDICINE 05/22/21 Carpenters Supervisor Relationship Specialty Start Date End Date Jose Vail MD PCP - General Internal Medicine 05/07/16 [place] [address] [place] [address] Consulting Hematology/Oncology 01/28/12 Marilyn Hughes RN [id number] [place] [address] Specialty Novelty Maker Hematology/Oncology 11/09/19 [place] [address] Hematology/Oncology 03/30/21 Kristina Pete, MAE Specialty Novelty Maker HOSPICE & PALLIATIVE MEDICINE 05/22/21 Carpenters Supervisor Relationship Specialty Start Date End Date Jose Vail MD PCP - General Internal Medicine 05/07/16 [place] [address] [place] [address] Consulting Hematology/Oncology 01/28/12 [place] [address] [place] [address] Specialty Novelty Maker Hematology/Oncology 11/09/19 [place] [address] [place] [address] Hematology/Oncology 03/30/21 Kristina Pete, RN Specialty Novelty Maker HOSPICE & PALLIATIVE MEDICINE 05/22/21 Carpenters Supervisor Relationship Specialty Start Date End Date Jose Vail MD PCP - General Internal Medicine 05/07/16 [place] [address] [place] [address] Consulting Hematology/Oncology 01/28/12 Marilyn Hughes, MAE [id number] [place] [address] Specialty Novelty Maker Hematology/Oncology 11/09/19 [place] [address] [place] [address] Hematology/Oncology 03/30/21 Kristina Pete, RN Specialty Novelty Maker HOSPICE & PALLIATIVE MEDICINE 05/22/21 Juan Francisco Hutchinson, PHOTOTYPESETTER OPERATOR.CLINICAL TRIAL DATA MANAGER [address] [place], [place] 5798131 Palliative Medicine Provider HOSPICE & PALLIATIVE MEDICINE 06/28/21 Carpenters Supervisor Relationship Specialty Start Date End Date Jose Vail MD PCP - General Internal Medicine 05/07/16 [place] [address] [place] [address] Consulting Hematology/Oncology 01/28/12 [place] [address] [place] [address] Specialty Novelty Maker Hematology/Oncology 11/09/19 [place] [address] [place] [address] Hematology/Oncology 03/30/21 Kristina Pete, RN Specialty Novelty Maker HOSPICE & PALLIATIVE MEDICINE 05/22/21 Juan Francisco Hutchinson, PHOTOTYPESETTER OPERATOR.CLINICAL TRIAL DATA MANAGER [address] [place] [address] Palliative Medicine Provider HOSPICE & PALLIATIVE MEDICINE 06/28/21 Carpenters Supervisor Relationship Specialty Start Date End Date Jose Vail MD PCP - General Internal Medicine 05/07/16 [place] [address] [place] [address] Consulting Hematology/Oncology 01/28/12 [place] [address] [place] [address] Specialty Novelty Maker Hematology/Oncology 11/09/19 [place] [address] [place] [address] Hematology/Oncology 03/30/21 Kristina Pete, MAE Specialty Novelty Maker HOSPICE & PALLIATIVE MEDICINE 05/22/21 Juan Francisco Hutchinson, PHOTOTYPESETTER OPERATOR.CLINICAL TRIAL DATA MANAGER [address] [place] [address] Palliative Medicine Provider HOSPICE & PALLIATIVE MEDICINE 06/28/21 Carpenters Supervisor Relationship Specialty Start Date End Date Jose Vail MD PCP - General Internal Medicine 05/07/16 [place] [address] [place] [address] Consulting Hematology/Oncology 01/28/12 Marilyn Hughes RN [phone] [place] [address] Specialty Novelty Maker Hematology/Oncology 11/09/19 [place] [address] [place] [address] Hematology/Oncology 03/30/21 Kristina Pete, RN Specialty Novelty Maker HOSPICE & PALLIATIVE MEDICINE 05/22/21 Juan Francisco Hutchinson, PHOTOTYPESETTER OPERATOR.CLINICAL TRIAL DATA MANAGER [address] [place] [address] Palliative Medicine Provider HOSPICE & PALLIATIVE MEDICINE 06/28/21 Carpenters Supervisor Relationship Specialty Start Date End Date Jose Vail MD PCP - General Internal Medicine 05/07/16 [place] [address] [place] [address] Consulting Hematology/Oncology 01/28/12 Marilyn Hughes RN [address] [place] [address] Specialty Novelty Maker Hematology/Oncology 11/09/19 [place] [address] [place] [address] Hematology/Oncology 03/30/21 Kristina Pete, MAE Specialty Novelty Maker HOSPICE & PALLIATIVE MEDICINE 05/22/21 Juan Francisco Hutchinson, PHOTOTYPESETTER OPERATOR.CLINICAL TRIAL DATA MANAGER [address] [place], [place] [address] Palliative Medicine Provider HOSPICE & PALLIATIVE MEDICINE 06/28/21 Carpenters Supervisor Relationship Specialty Start Date End Date Jose Vail MD PCP - General Internal Medicine 05/07/16 [place] [address] [place] [address] Consulting Hematology/Oncology 01/28/12 [place] [address] [place] [address] Specialty Novelty Maker Hematology/Oncology 11/09/19 [place] [address] [place] [address] Hematology/Oncology 03/30/21 Kristina Pete, MAE Specialty Novelty Maker HOSPICE & PALLIATIVE MEDICINE 05/22/21 Juan Francisco Hutchinson, PHOTOTYPESETTER OPERATOR.CLINICAL TRIAL DATA MANAGER [address] [place] [address] Palliative Medicine Provider HOSPICE & PALLIATIVE MEDICINE 06/28/21 Carpenters Supervisor Relationship Specialty Start Date End Date Jose Vail MD PCP - General Internal Medicine 05/07/16 [place] [address] [place] [address] Consulting Hematology/Oncology 01/28/12 [place] [address] [place] [address] Specialty Novelty Maker Hematology/Oncology 11/09/19 [place] [address] [place] [address] Hematology/Oncology 03/30/21 Kristina Pete, RN Specialty Novelty Maker HOSPICE & PALLIATIVE MEDICINE 05/22/21 Juan Francisco Hutchinson, PHOTOTYPESETTER OPERATOR.CLINICAL TRIAL DATA MANAGER [address] [place] [address] Palliative Medicine Provider HOSPICE & PALLIATIVE MEDICINE 06/28/21 Carpenters Supervisor Relationship Specialty Start Date End Date Jose Vail MD PCP - General Internal Medicine 05/07/16 Cyn [place]ires MD [id number] [place] [address] Consulting Hematology/Oncology 01/28/12 Marilyn Hughes, MAE [address] [place] [address] Specialty Novelty Maker Hematology/Oncology 11/09/19 Cyn Ramires MD [id number] [place] [address] Hematology/Oncology 03/30/21 Kristina Pete, MAE Specialty Novelty Maker HOSPICE & PALLIATIVE MEDICINE 05/22/21 Juan Francisco Hutchinson, PHOTOTYPESETTER OPERATOR.CLINICAL TRIAL DATA MANAGER [address] [place] [address] Palliative Medicine Provider HOSPICE & PALLIATIVE MEDICINE 06/28/21 Carpenters Supervisor Relationship Specialty Start Date End Date Jose Vail MD PCP - General Internal Medicine 05/07/16 [place] [address] [place] [address] Consulting Hematology/Oncology 01/28/12 Marilyn Hughes, RN [address] [place] [address] Specialty Novelty Maker Hematology/Oncology 11/09/19 [place] [address] [place] [address] Hematology/Oncology 03/30/21 Kristina Pete, RN Specialty Novelty Maker HOSPICE & PALLIATIVE MEDICINE 05/22/21 Juan Francisco Hutchinson, PHOTOTYPESETTER OPERATOR.CLINICAL TRIAL DATA MANAGER [address] [place] [address] Palliative Medicine Provider HOSPICE & PALLIATIVE MEDICINE 06/28/21 Carpenters Supervisor Relationship Specialty Start Date End Date Jose Vail MD PCP - General Internal Medicine 05/07/16 [place] [address] [place] [address] Consulting Hematology/Oncology 01/28/12 [place] [address] [place] [address] Specialty Novelty Maker Hematology/Oncology 11/09/19 [place] [address] [place] [address] Hematology/Oncology 03/30/21 Kristina Pete, MAE Specialty Novelty Maker HOSPICE & PALLIATIVE MEDICINE 05/22/21 Juan Francisco Hutchinson, PHOTOTYPESETTER OPERATOR.CLINICAL TRIAL DATA MANAGER [address] [place] [address] Palliative Medicine Provider HOSPICE & PALLIATIVE MEDICINE 06/28/21 Carpenters Supervisor Relationship Specialty Start Date End Date Jose Vail MD PCP - General Internal Medicine 05/07/16 [place] [address] [place] [address] Consulting Hematology/Oncology 01/28/12 [place] [address] [place] [address] Specialty Novelty Maker Hematology/Oncology 11/09/19 [place] [address] [place] [address] Hematology/Oncology 03/30/21 Kristina Pete, RN Specialty Novelty Maker HOSPICE & PALLIATIVE MEDICINE 05/22/21 Juan Francisco Hutchinson, PHOTOTYPESETTER OPERATOR.CLINICAL TRIAL DATA MANAGER [address] [place] [address] Palliative Medicine Provider HOSPICE & PALLIATIVE MEDICINE 06/28/21 Carpenters Supervisor Relationship Specialty Start Date End Date Jose Vail MD PCP - General Internal Medicine 05/07/16 [place] [address] [place] [address] Consulting Hematology/Oncology 01/28/12 [place]E [address] [place] [address] Specialty Novelty Maker Hematology/Oncology 11/09/19 [place] [address] [place] [address] Hematology/Oncology 03/30/21 Kristina Pete, RN Specialty Novelty Maker HOSPICE & PALLIATIVE MEDICINE 05/22/21 Juan Francisco Hutchinson, PHOTOTYPESETTER OPERATOR.CLINICAL TRIAL DATA MANAGER [address] [place] [address] Palliative Medicine Provider HOSPICE & PALLIATIVE MEDICINE 06/28/21 Carpenters Supervisor Relationship Specialty Start Date End Date Jose Vail MD PCP - General Internal Medicine 05/07/16 [place] [address] [place] [address] Consulting Hematology/Oncology 01/28/12 [place] [address] [place] [address] Specialty Novelty Maker Hematology/Oncology 11/09/19 [place] [address] [place] [address] Hematology/Oncology 03/30/21 Kristina Pete, RN Specialty Novelty Maker HOSPICE & PALLIATIVE MEDICINE 05/22/21 Juan Francisco Hutchinson, PHOTOTYPESETTER OPERATOR.CLINICAL TRIAL DATA MANAGER [address] [place] [address] Palliative Medicine Provider HOSPICE & PALLIATIVE MEDICINE 06/28/21 Carpenters Supervisor Relationship Specialty Start Date End Date Jose Vail MD PCP - General Internal Medicine 05/07/16 [place] [address] [place] [address] Consulting Hematology/Oncology 01/28/12 [place] [address] [place] [address] Specialty Novelty Maker Hematology/Oncology 11/09/19 [place] [address] [place] [address] Hematology/Oncology 03/30/21 Kristina Pete, MAE Specialty Novelty Maker HOSPICE & PALLIATIVE MEDICINE 05/22/21 Juan Francisco Hutchinson, PHOTOTYPESETTER OPERATOR.CLINICAL TRIAL DATA MANAGER [address] [place] [address] Palliative Medicine Provider HOSPICE & PALLIATIVE MEDICINE 06/28/21 Carpenters Supervisor Relationship Specialty Start Date End Date Jose Vail MD PCP - General Internal Medicine 05/07/16 [place] [address] [place] [address] Consulting Hematology/Oncology 01/28/12 Marilyn Hughes RN [address] [place] [address] Specialty Novelty Maker Hematology/Oncology 11/09/19 [place] [address] [place] [address] Hematology/Oncology 03/30/21 Kristina Pete, MAE Specialty Novelty Maker HOSPICE & PALLIATIVE MEDICINE 05/22/21 Juan Francisco Hutchinson, PHOTOTYPESETTER OPERATOR.CLINICAL TRIAL DATA MANAGER [address] [place] [address] Palliative Medicine Provider HOSPICE & PALLIATIVE MEDICINE 06/28/21 Carpenters Supervisor Relationship Specialty Start Date End Date Jose Vail MD PCP - General Internal Medicine 05/07/16 [place] [address] [place] [address] Consulting Hematology/Oncology 01/28/12 Marilyn Hughes RN [phone] [place] [address] Specialty Novelty Maker Hematology/Oncology 11/09/19 [place] [address] [place] [address] Hematology/Oncology 03/30/21 Kristina Pete, MAE Specialty Novelty Maker HOSPICE & PALLIATIVE MEDICINE 05/22/21 Juan Francisco Hutchinson, PHOTOTYPESETTER OPERATOR.CLINICAL TRIAL DATA MANAGER [address] [facility] [place] [address] Palliative Medicine Provider HOSPICE & PALLIATIVE MEDICINE 06/28/21 Carpenters Supervisor Relationship Specialty Start Date End Date Jose Vail MD PCP - General Internal Medicine 05/07/16 [place] [address] [place] [address] Consulting Hematology/Oncology 01/28/12 [place] [address] [place] [address] Specialty Novelty Maker Hematology/Oncology 11/09/19 [place] [address] [place] [address] Hematology/Oncology 03/30/21 Kristina Pete, MAE Specialty Novelty Maker HOSPICE & PALLIATIVE MEDICINE 05/22/21 Juan Francisco Hutchinson, PHOTOTYPESETTER OPERATOR.CLINICAL TRIAL DATA MANAGER [address] [place] [address] Palliative Medicine Provider HOSPICE & PALLIATIVE MEDICINE 06/28/21 Carpenters Supervisor Relationship Specialty Start Date End Date Jose Vail MD PCP - General Internal Medicine 05/07/16 [place] [address] [place] [address] Consulting Hematology/Oncology 01/28/12 Mar[place], MAE [address] [place] [address] Specialty Novelty Maker Hematology/Oncology 11/09/19 [place] [address] [place] [address] Hematology/Oncology 03/30/21 Kristina Pete, MAE Specialty Novelty Maker HOSPICE & PALLIATIVE MEDICINE 05/22/21 Juan Francisco Hutchinson, PHOTOTYPESETTER OPERATOR.CLINICAL TRIAL DATA MANAGER [address] [place] [address] Palliative Medicine Provider HOSPICE & PALLIATIVE MEDICINE 06/28/21 Kylie Mosher, RN Specialty Novelty Maker HOSPICE & PALLIATIVE MEDICINE 09/27/21 Carpenters Supervisor Relationship Specialty Start Date End Date Jose Vail MD PCP - General Internal Medicine 05/07/16 [place] [address] [place] [address] Consulting Hematology/Oncology 01/28/12 [place] [address] [place] [address] Specialty Novelty Maker Hematology/Oncology 11/09/19 [place] [address] [place] [address] Hematology/Oncology 03/30/21 Kristina Pete, MAE Specialty Novelty Maker HOSPICE & PALLIATIVE MEDICINE 05/22/21 Juan Francisco Hutchinson, PHOTOTYPESETTER OPERATOR.CLINICAL TRIAL DATA MANAGER [address] [place] [address] Palliative Medicine Provider HOSPICE & PALLIATIVE MEDICINE 06/28/21 Kylie Mosher, RN Specialty Novelty Maker HOSPICE & PALLIATIVE MEDICINE 09/27/21 Carpenters Supervisor Relationship Specialty Start Date End Date Jose Vail MD PCP - General Internal Medicine 05/07/16 [place] [address] [place] [address] Consulting Hematology/Oncology 01/28/12 [place], MAE [address] [place] [address] Specialty Novelty Maker Hematology/Oncology 11/09/19 [place] [address] [place] [address] Hematology/Oncology 03/30/21 Kristina Pete, RN Specialty Novelty Maker HOSPICE & PALLIATIVE MEDICINE 05/22/21 Juan Francisco Hutchinson, PHOTOTYPESETTER OPERATOR.CLINICAL TRIAL DATA MANAGER [address] [place] [address] Palliative Medicine Provider HOSPICE & PALLIATIVE MEDICINE 06/28/21 Kylie Mosher, RN Specialty Novelty Maker HOSPICE & PALLIATIVE MEDICINE 09/27/21 Carpenters Supervisor Relationship Specialty Start Date End Date Jose Vail MD PCP - General Internal Medicine 05/07/16 [place] [address] [place] [address] Consulting Hematology/Oncology 01/28/12 [place], MAE [address] [place] [address] Specialty Novelty Maker Hematology/Oncology 11/09/19 [place] [address] [place] [address] Hematology/Oncology 03/30/21 Kristina Pete, RN Specialty Novelty Maker HOSPICE & PALLIATIVE MEDICINE 05/22/21 Juan Francisco Hutchinson, PHOTOTYPESETTER OPERATOR.CLINICAL TRIAL DATA MANAGER [address] [place] [address] Palliative Medicine Provider HOSPICE & PALLIATIVE MEDICINE 06/28/21 Kylie Mosher, RN Specialty Novelty Maker HOSPICE & PALLIATIVE MEDICINE 09/27/21 Carpenters Supervisor Relationship Specialty Start Date End Date Jose Vail MD PCP - General Internal Medicine 05/07/16 [place] [address] [place] [address] Consulting Hematology/Oncology 01/28/12 [place] [address] [place] [address] Specialty Novelty Maker Hematology/Oncology 11/09/19 [place] [address] [place] [address] Hematology/Oncology 03/30/21 Kristina Pete, MAE Specialty Novelty Maker HOSPICE & PALLIATIVE MEDICINE 05/22/21 Juan Francisco Hutchinson, PHOTOTYPESETTER OPERATOR.CLINICAL TRIAL DATA MANAGER [address] [place] [address] Palliative Medicine Provider HOSPICE & PALLIATIVE MEDICINE 06/28/21 Kylie Mosher RN Specialty Novelty Maker HOSPICE & PALLIATIVE MEDICINE 09/27/21 Carpenters Supervisor Relationship Specialty Start Date End Date Jose Vail MD PCP - General Internal Medicine 05/07/16 [place] [address] [place] [address] Consulting Hematology/Oncology 01/28/12 [place] [address] [place] [address] Specialty Novelty Maker Hematology/Oncology 11/09/19 [place] [address] [place] [address] Hematology/Oncology 03/30/21 Kristina Pete, MAE Specialty Novelty Maker HOSPICE & PALLIATIVE MEDICINE 05/22/21 Juan Francisco Hutchinson, PHOTOTYPESETTER OPERATOR.CLINICAL TRIAL DATA MANAGER [address] [place] [address] Palliative Medicine Provider HOSPICE & PALLIATIVE MEDICINE 06/28/21 Kylie Mosher, RN Specialty Novelty Maker HOSPICE & PALLIATIVE MEDICINE 09/27/21 Carpenters Supervisor Relationship Specialty Start Date End Date Jose Vail MD PCP - General Internal Medicine 05/07/16 [place] [address] [place] [address] Consulting Hematology/Oncology 01/28/12 Marilyn Hughes, RN [address] [place] [address] Specialty Novelty Maker Hematology/Oncology 11/09/19 [place] [address] [place] [address] Hematology/Oncology 03/30/21 Kristina Pete, MAE Specialty Novelty Maker HOSPICE & PALLIATIVE MEDICINE 05/22/21 Juan Francisco Hutchinson, PHOTOTYPESETTER OPERATOR.CLINICAL TRIAL DATA MANAGER [address] [place], [place] 023[address]31 Palliative Medicine Provider HOSPICE & PALLIATIVE MEDICINE 06/28/21 Kylie Mosher, RN Specialty Novelty Maker HOSPICE & PALLIATIVE MEDICINE 09/27/21 Carpenters Supervisor Relationship Specialty Start Date End Date Jose Vail MD PCP - General Internal Medicine 05/07/16 [place] [address] [place] [address] Consulting Hematology/Oncology 01/28/12 Marilyn Hughes, RN [address] [place] [address] Specialty Novelty Maker Hematology/Oncology 11/09/19 [place] [address] [place] [address] Hematology/Oncology 03/30/21 Kristina Pete, RN Specialty Novelty Maker HOSPICE & PALLIATIVE MEDICINE 05/22/21 Juan Francisco Hutchinson, PHOTOTYPESETTER OPERATOR.CLINICAL TRIAL DATA MANAGER [address] [place] [address] Palliative Medicine Provider HOSPICE & PALLIATIVE MEDICINE 06/28/21 Kylie Mosher, RN Specialty Novelty Maker HOSPICE & PALLIATIVE MEDICINE 09/27/21 Carpenters Supervisor Relationship Specialty Start Date End Date Jose Vail MD PCP - General Internal Medicine 05/07/16 [place] [address] [place] [address] Consulting Hematology/Oncology 01/28/12 Marilyn Hughes, MAE [address] [place] [address] Specialty Novelty Maker Hematology/Oncology 11/09/19 [place] [address] [place] [address] Hematology/Oncology 03/30/21 Kristina Pete, RN Specialty Novelty Maker HOSPICE & PALLIATIVE MEDICINE 05/22/21 Juan Francisco Hutchinson, PHOTOTYPESETTER OPERATOR.CLINICAL TRIAL DATA MANAGER [address] [place] [address] Palliative Medicine Provider HOSPICE & PALLIATIVE MEDICINE 06/28/21 Kylie Mosher, RN Specialty Novelty Maker HOSPICE & PALLIATIVE MEDICINE 09/27/21 Carpenters Supervisor Relationship Specialty Start Date End Date Jose Vail MD PCP - General Internal Medicine 05/07/16 [place] [address] [place] [address] Consulting Hematology/Oncology 01/28/12 Marilyn Hughes, MAE [address] [place] [address] Specialty Novelty Maker Hematology/Oncology 11/09/19 [place] [address] [place] [address] Hematology/Oncology 03/30/21 Kristina Pete, RN Specialty Novelty Maker HOSPICE & PALLIATIVE MEDICINE 05/22/21 Juan Francisco Hutchinson, PHOTOTYPESETTER OPERATOR.CLINICAL TRIAL DATA MANAGER [address] [place] [address] Palliative Medicine Provider HOSPICE & PALLIATIVE MEDICINE 06/28/21 Kylie Mosher RN Specialty Novelty Maker HOSPICE & PALLIATIVE MEDICINE 09/27/21 Carpenters Supervisor Relationship Specialty Start Date End Date Jose Vail MD PCP - General Internal Medicine 05/07/16 [place] [address] [place] [address] Consulting Hematology/Oncology 01/28/12 [place] [address] [place] [address] Specialty Novelty Maker Hematology/Oncology 11/09/19 [place] [address] [place] [address] Hematology/Oncology 03/30/21 Kristina Pete, MAE Specialty Novelty Maker HOSPICE & PALLIATIVE MEDICINE 05/22/21 Juan Francisco Hutchinson, PHOTOTYPESETTER OPERATOR.CLINICAL TRIAL DATA MANAGER [address] [place] [address] Palliative Medicine Provider HOSPICE & PALLIATIVE MEDICINE 06/28/21 Kylie Mosher RN Specialty Novelty Maker HOSPICE & PALLIATIVE MEDICINE 09/27/21 Carpenters Supervisor Relationship Specialty Start Date End Date Jose Vail MD PCP - General Internal Medicine 05/07/16 [place] [address] [place] [address] Consulting Hematology/Oncology 01/28/12 Marilyn Hughes, RN [id number] [place] [address] Specialty Novelty Maker Hematology/Oncology 11/09/19 [place] [address] Hematology/Oncology 03/30/21 Kristina Pete, MAE Specialty Novelty Maker HOSPICE & PALLIATIVE MEDICINE 05/22/21 Juan Francisco Hutchinson, PHOTOTYPESETTER OPERATOR.CLINICAL TRIAL DATA MANAGER [address] [place] [address] Palliative Medicine Provider HOSPICE & PALLIATIVE MEDICINE 06/28/21 Kylie Mosher, MAE Specialty Novelty Maker HOSPICE & PALLIATIVE MEDICINE 09/27/21 Carpenters Supervisor Relationship Specialty Start Date End Date Jose Vail MD PCP - General Internal Medicine 05/07/16 [place] [address] Consulting Hematology/Oncology 01/28/12 Marily[place] Hughes, MAE [address] [place] [address] Specialty Novelty Maker Hematology/Oncology 11/09/19 [place] [address] [place] [address] Hematology/Oncology 03/30/21 Kristina Pete, MAE Specialty Novelty Maker HOSPICE & PALLIATIVE MEDICINE 05/22/21 Juan Francisco Hutchinson, PHOTOTYPESETTER OPERATOR.CLINICAL TRIAL DATA MANAGER [address] [place] [address] Palliative Medicine Provider HOSPICE & PALLIATIVE MEDICINE 06/28/21 Kylie Mosher RN Specialty Novelty Maker HOSPICE & PALLIATIVE MEDICINE 09/27/21 Carpenters Supervisor Relationship Specialty Start Date End Date Jose Vail MD PCP - General Internal Medicine 05/07/16 [place] [address] [place] [address] Consulting Hematology/Oncology 01/28/12 [place] [address] [place] [address] Specialty Novelty Maker Hematology/Oncology 11/09/19 [place] [address] [place] [address] Hematology/Oncology 03/30/21 Kristina Pete, MAE Specialty Novelty Maker HOSPICE & PALLIATIVE MEDICINE 05/22/21 Juan Francisco Hutchinson, PHOTOTYPESETTER OPERATOR.CLINICAL TRIAL DATA MANAGER [address] [place] [address] Palliative Medicine Provider HOSPICE & PALLIATIVE MEDICINE 06/28/21 Kylie Mosher RN Specialty Novelty Maker HOSPICE & PALLIATIVE MEDICINE 09/27/21 Carpenters Supervisor Relationship Specialty Start Date End Date Jose Vail MD PCP - General Internal Medicine 05/07/16 [place] [address] [place] [address] Consulting Hematology/Oncology 01/28/12 [place] MAE [address] [place] [address] Specialty Novelty Maker Hematology/Oncology 11/09/19 [place] [address] [place] [address] Hematology/Oncology 03/30/21 Kristina Pete, RN Specialty Novelty Maker HOSPICE & PALLIATIVE MEDICINE 05/22/21 Juan Francisco Hutchinson, PHOTOTYPESETTER OPERATOR.CLINICAL TRIAL DATA MANAGER [address] [place] [address] Palliative Medicine Provider HOSPICE & PALLIATIVE MEDICINE 06/28/21 Kylie Mosher, RN Specialty Novelty Maker HOSPICE & PALLIATIVE MEDICINE 09/27/21 Carpenters Supervisor Relationship Specialty Start Date End Date Jose Vail MD PCP - General Internal Medicine 05/07/16 [place] [address] [place] [address] Consulting Hematology/Oncology 01/28/12 Marilyn Hughes, MAE [address] [place] [address] Specialty Novelty Maker Hematology/Oncology 11/09/19 [place] [address] [place] [address] Hematology/Oncology 03/30/21 Kristina Pete, RN Specialty Novelty Maker HOSPICE & PALLIATIVE MEDICINE 05/22/21 Juan Francisco Hutchinson, PHOTOTYPESETTER OPERATOR.CLINICAL TRIAL DATA MANAGER [address] [place] [address] Palliative Medicine Provider HOSPICE & PALLIATIVE MEDICINE 06/28/21 Kylie Mosher, RN Specialty Novelty Maker HOSPICE & PALLIATIVE MEDICINE 09/27/21 Carpenters Supervisor Relationship Specialty [place] [address] [place] [address] PCP - General Internal Medicine 05/07/16 [place] [address] [place] [address] Consulting Hematology/Oncology 01/28/12 Marilyn Hughes, MAE [id number] [place] [address] Specialty Novelty Maker Hematology/Oncology 11/09/19 [place] [address] [place] [address] Hematology/Oncology 03/30/21 Kristina Pete, MAE Specialty Novelty Maker HOSPICE & PALLIATIVE MEDICINE 05/22/21 Juan Francisco Hutchinson, PHOTOTYPESETTER OPERATOR.CLINICAL TRIAL DATA MANAGER [address] [place] [address] Palliative Medicine Provider HOSPICE & PALLIATIVE MEDICINE 06/28/21 Kylie Mosher RN Specialty Novelty Maker HOSPICE & PALLIATIVE MEDICINE 09/27/21 Carpenters Supervisor Relationship Specialty [place] [address] [place] [address] PCP - General Internal Medicine 05/07/16 [place] [address] [place] [address] Consulting Hematology/Oncology 01/28/12 Mar[place] Hughes[place] MAE [address] [place] [address] Specialty Novelty Maker Hematology/Oncology 11/09/19 [place] [address] [place] [address] Hematology/Oncology 03/30/21 Kristina Pete, RN Specialty Novelty Maker HOSPICE & PALLIATIVE MEDICINE 05/22/21 Juan Francisco Hutchinson, PHOTOTYPESETTER OPERATOR.CLINICAL TRIAL DATA MANAGER [address] [place] [address] Palliative Medicine Provider HOSPICE & PALLIATIVE MEDICINE 06/28/21 Kylie Mosher, RN Specialty Novelty Maker HOSPICE & PALLIATIVE MEDICINE 09/27/21 Carpenters Supervisor Relationship Specialty [place] [address] [place] [address] PCP - General Internal Medicine 05/07/16 [place] [address] [place] [address] Consulting Hematology/Oncology 01/28/12 [place] [address] [place] [address] Specialty Novelty Maker Hematology/Oncology 11/09/19 [place] [address] [place] [address] Hematology/Oncology 03/30/21 Kristina Pete, MAE Specialty Novelty Maker HOSPICE & PALLIATIVE MEDICINE 05/22/21 Jaun Francisco Hutchinson, PHOTOTYPESETTER OPERATOR.CLINICAL TRIAL DATA MANAGER [address] [place] [address] Palliative Medicine Provider HOSPICE & PALLIATIVE MEDICINE 06/28/21 Kylie Mosher, RN Specialty Novelty Maker HOSPICE & PALLIATIVE MEDICINE 09/27/21 Carpenters Supervisor Relationship Specialty [place] [address] [place] [address] PCP - General Internal Medicine 05/07/16 [place] [address] [place] [address] Consulting Hematology/Oncology 01/28/12 [place] MAE [address] [place] [address] Specialty Novelty Maker Hematology/Oncology 11/09/19 [place] [address] [place] [address] Hematology/Oncology 03/30/21 Kristina Pete, RN Specialty Novelty Maker HOSPICE & PALLIATIVE MEDICINE 05/22/21 Juan Francisco Hutchinson, PHOTOTYPESETTER OPERATOR.CLINICAL TRIAL DATA MANAGER [address] [place] [address] Palliative Medicine Provider HOSPICE & PALLIATIVE MEDICINE 06/28/21 Kylie Mosher, MAE Specialty Novelty Maker HOSPICE & PALLIATIVE MEDICINE 09/27/21 Carpenters Supervisor Relationship Specialty [place] [address] [place] [address] PCP - General Internal Medicine 05/07/16 [place] [address] [place] [address] Consulting Hematology/Oncology 01/28/12 Marilyn Hughes, MEA [address] [place] [address] Specialty Novelty Maker Hematology/Oncology 11/09/19 [place] [address] [place] [address] Hematology/Oncology 03/30/21 Kristina Pete, RN Specialty Novelty Maker HOSPICE & PALLIATIVE MEDICINE 05/22/21 Juan Francisco Hutchinson, PHOTOTYPESETTER OPERATOR.CLINICAL TRIAL DATA MANAGER [address] [place] [address] Palliative Medicine Provider HOSPICE & PALLIATIVE MEDICINE 06/28/21 Kylie Mosher RN Specialty Novelty Maker HOSPICE & PALLIATIVE MEDICINE 09/27/21 Carpenters Supervisor Relationship Specialty [place] [address] [place] [address] PCP - General Internal Medicine 05/07/16 [place] [address] [place] [address] Consulting Hematology/Oncology 01/28/12 Marilyn Hughes, MAE [address] [place] [address] Specialty Novelty Maker Hematology/Oncology 11/09/19 [place] [address] [place] [address] Hematology/Oncology 03/30/21 Kristina Pete, MAE Specialty Novelty Maker HOSPICE & PALLIATIVE MEDICINE 05/22/21 Juan Francisco Hutchinson, PHOTOTYPESETTER OPERATOR.CLINICAL TRIAL DATA MANAGER [address] [place] [address] Palliative Medicine Provider HOSPICE & PALLIATIVE MEDICINE 06/28/21 Kylie Mosher, MAE Specialty Novelty Maker HOSPICE & PALLIATIVE MEDICINE 09/27/21 Carpenters Supervisor Relationship Specialty [place] [address] [place] [address] PCP - General Internal Medicine 05/07/16 [place] [address] [place] [address] Consulting Hematology/Oncology 01/28/12 Marilyn Hughes, MAE [address] [place] [address] Specialty Novelty Maker Hematology/Oncology 11/09/19 [place] [address] [place] [address] Hematology/Oncology 03/30/21 Kristina Pete, MAE Specialty Novelty Maker HOSPICE & PALLIATIVE MEDICINE 05/22/21 Juan Francisco Hutchinson, PHOTOTYPESETTER OPERATOR.CLINICAL TRIAL DATA MANAGER [address] [place] [address] Palliative Medicine Provider HOSPICE & PALLIATIVE MEDICINE 06/28/21 Kylie Mosher, RN Specialty Novelty Maker HOSPICE & PALLIATIVE MEDICINE 09/27/21 Carpenters Supervisor Relationship Specialty [place] [address] [place] [address] PCP - General Internal Medicine 05/07/16 [place] [address] [place] [address] Consulting Hematology/Oncology 01/28/12 [place] [address] [place] [address] Specialty Novelty Maker Hematology/Oncology 11/09/19 [place] [address] [place] [address] Hematology/Oncology 03/30/21 Kristina Pete, MAE Specialty Novelty Maker HOSPICE & PALLIATIVE MEDICINE 05/22/21 Juan Francisco Hutchinson, PHOTOTYPESETTER OPERATOR.CLINICAL TRIAL DATA MANAGER [address] [place] [address] Palliative Medicine Provider HOSPICE & PALLIATIVE MEDICINE 06/28/21 Kylie Mosher, RN Specialty Novelty Maker HOSPICE & PALLIATIVE MEDICINE 09/27/21 Carpenters Supervisor Relationship Specialty [place] [address] [place] [address] PCP - General Internal Medicine 05/07/16 [place] [address] [place] [address] Consulting Hematology/Oncology 01/28/12 Mar[place] MAE [address] [place] [address] Specialty Novelty Maker Hematology/Oncology 11/09/19 [place] [address] [place] [address] Hematology/Oncology 03/30/21 Kristina Pete, MAE Specialty Novelty Maker HOSPICE & PALLIATIVE MEDICINE 05/22/21 Juan Francisco Hutchinson, PHOTOTYPESETTER OPERATOR.CLINICAL TRIAL DATA MANAGER [address] [place] [address] Palliative Medicine Provider HOSPICE & PALLIATIVE MEDICINE 06/28/21 Kylie Mosher RN Specialty Novelty Maker HOSPICE & PALLIATIVE MEDICINE 09/27/21 Carpenters Supervisor Relationship Specialty [place] [address] [place] [address] PCP - General Internal Medicine 05/07/16 [place] [address] [place] [address] Consulting Hematology/Oncology 01/28/12 [place] [address] [place] [address] Specialty Novelty Maker Hematology/Oncology 11/09/19 [place] [address] [place] [address] Hematology/Oncology 03/30/21 Kristina Pete, MAE Specialty Novelty Maker HOSPICE & PALLIATIVE MEDICINE 05/22/21 Juan Francisco Hutchinson, PHOTOTYPESETTER OPERATOR.CLINICAL TRIAL DATA MANAGER [address] [facility] [place] [address] Palliative Medicine Provider HOSPICE & PALLIATIVE MEDICINE 06/28/21 Kylie Mosher RN Specialty Novelty Maker HOSPICE & PALLIATIVE MEDICINE 09/27/21 Carpenters Supervisor Relationship Specialty Start Date [place] [address] PCP - General Internal Medicine 05/07/16 [place] [address] [place] [address] Consulting Hematology/Oncology 01/28/12 Marilyn Hughes, RN [id number] [place] [address] Specialty Novelty Maker Hematology/Oncology 11/09/19 Cyn Ramires MD [id number] [place] [address] Hematology/Oncology 03/30/21 Kristina Pete, MAE Specialty Novelty Maker HOSPICE & PALLIATIVE MEDICINE 05/22/21 Juan Francisco Hutchinson, PHOTOTYPESETTER OPERATOR.CLINICAL TRIAL DATA MANAGER [address] [place] [address] Palliative Medicine Provider HOSPICE & PALLIATIVE MEDICINE 06/28/21 Kylie Mosher, RN Specialty Novelty Maker HOSPICE & PALLIATIVE MEDICINE 09/27/21 Carpenters Supervisor Relationship Specialty Start Date [place] [address] PCP - General Internal Medicine 05/07/16 [place] [address] [place] [address] Consulting Hematology/Oncology 01/28/12 Marilyn Hughes RN [address] [place] [address] Specialty Novelty Maker Hematology/Oncology 11/09/19 Cyn Ramires MD [id number] [place] [address] Hematology/Oncology 03/30/21 Kristina Pete, RN Specialty Novelty Maker HOSPICE & PALLIATIVE MEDICINE 05/22/21 Juan Francisco Hutchinson, PHOTOTYPESETTER OPERATOR.CLINICAL TRIAL DATA MANAGER [address] [place] [address] Palliative Medicine Provider HOSPICE & PALLIATIVE MEDICINE 06/28/21 Kylie Mosher, RN Specialty Novelty Maker HOSPICE & PALLIATIVE MEDICINE 09/27/21 Carpenters Supervisor Relationship Specialty [place] [address] [place] [address] PCP - General Internal Medicine 05/07/16 [place] [address] [place] [address] Consulting Hematology/Oncology 01/28/12 [place] MAE [address] [place] [address] Specialty Novelty Maker Hematology/Oncology 11/09/19 [place] [address] [place] [address] Hematology/Oncology 03/30/21 Kristina Pete, RN Specialty Novelty Maker HOSPICE & PALLIATIVE MEDICINE 05/22/21 Juan Francisco Hutchinson, PHOTOTYPESETTER OPERATOR.CLINICAL TRIAL DATA MANAGER [address] [place] [address] Palliative Medicine Provider HOSPICE & PALLIATIVE MEDICINE 06/28/21 Kylie Mosher, RN Specialty Novelty Maker HOSPICE & PALLIATIVE MEDICINE 09/27/21 Carpenters Supervisor Relationship Specialty [place] [address] [place] [address] PCP - General Internal Medicine 05/07/16 [place] [address] [place] [address] Consulting Hematology/Oncology 01/28/12 [place] [address] [place] [address] Specialty Novelty Maker Hematology/Oncology 11/09/19 [place] [address] [place] [address] Hematology/Oncology 03/30/21 Kristina Pete, RN Specialty Novelty Maker HOSPICE & PALLIATIVE MEDICINE 05/22/21 Juan Francisco Hutchinson, PHOTOTYPESETTER OPERATOR.CLINICAL TRIAL DATA MANAGER [address] [place] [address] Palliative Medicine Provider HOSPICE & PALLIATIVE MEDICINE 06/28/21 Kylie Mosher RN Specialty Novelty Maker HOSPICE & PALLIATIVE MEDICINE 09/27/21 Carpenters Supervisor Relationship Specialty [place] [address] [place] [address] PCP - General Internal Medicine 05/07/16 [place] [address] [place] [address] Consulting Hematology/Oncology 01/28/12 [place] [address] [place] [address] Specialty Novelty Maker Hematology/Oncology 11/09/19 [place] [address] [place] [address] Hematology/Oncology 03/30/21 Kristina Pete, MAE Specialty Novelty Maker HOSPICE & PALLIATIVE MEDICINE 05/22/21 Juan Francisco Hutchinson, PHOTOTYPESETTER OPERATOR.CLINICAL TRIAL DATA MANAGER [address] [place] [address] Palliative Medicine Provider HOSPICE & PALLIATIVE MEDICINE 06/28/21 Kylie Mosher RN Specialty Novelty Maker HOSPICE & PALLIATIVE MEDICINE 09/27/21 Carpenters Supervisor Relationship Specialty Start Date [place] [address] PCP - General Internal Medicine 05/07/16 [place] [address] [place] [address] Consulting Hematology/Oncology 01/28/12 Marilyn Hughes, RN [id number] [place] [address] Specialty Novelty Maker Hematology/Oncology 11/09/19 [place] [address] [place] [address] Hematology/Oncology 03/30/21 Kristina Pete, MAE Specialty Novelty Maker HOSPICE & PALLIATIVE MEDICINE 05/22/21 Juan Francisco Hutchinson, PHOTOTYPESETTER OPERATOR.CLINICAL TRIAL DATA MANAGER [address] [place] [address] Palliative Medicine Provider HOSPICE & PALLIATIVE MEDICINE 06/28/21 Kylie Mosher RN Specialty Novelty Maker HOSPICE & PALLIATIVE MEDICINE 09/27/21 Carpenters Supervisor Relationship Specialty Start Date [place] [address] PCP - General Internal Medicine 05/07/16 [place] [address] [place] [address] Consulting Hematology/Oncology 01/28/12 [place] [address] [place] [address] Specialty Novelty Maker Hematology/Oncology 11/09/19 [place] [address] [place] [address] Hematology/Oncology 03/30/21 Kristina Pete, RN Specialty Novelty Maker HOSPICE & PALLIATIVE MEDICINE 05/22/21 Juan Francisco Hutchinson, PHOTOTYPESETTER OPERATOR.CLINICAL TRIAL DATA MANAGER [address] [place] [address] Palliative Medicine Provider HOSPICE & PALLIATIVE MEDICINE 06/28/21 Kylie Mosher, RN Specialty Novelty Maker HOSPICE & PALLIATIVE MEDICINE 09/27/21 Carpenters Supervisor Relationship Specialty [place] [address] [place] [address] PCP - General Internal Medicine 05/07/16 [place] [address] [place] [address] Consulting Hematology/Oncology 01/28/12 [place] [address] [place] [address] Hematology/Oncology 03/30/21 Kristina Pete, MAE Specialty Novelty Maker HOSPICE & PALLIATIVE MEDICINE 05/22/21 Juan Francisco Hutchinson, PHOTOTYPESETTER OPERATOR.CLINICAL TRIAL DATA MANAGER [address] [place] [address] Palliative Medicine Provider HOSPICE & PALLIATIVE MEDICINE 06/28/21 Kylie Mosher, RN Specialty Novelty Maker HOSPICE & PALLIATIVE MEDICINE 09/27/21 Carpenters Supervisor Relationship Specialty [place] [address] [place] [address] PCP - General Internal Medicine 05/07/16 [place] [address] [place] [address] Consulting Hematology/Oncology 01/28/12 [place] [address] [place] [address] Hematology/Oncology 03/30/21 Kristina Pete, MAE Specialty Novelty Maker HOSPICE & PALLIATIVE MEDICINE 05/22/21 Juan Francisco Hutchinson, PHOTOTYPESETTER OPERATOR.CLINICAL TRIAL DATA MANAGER [address] [place] [address] Palliative Medicine Provider HOSPICE & PALLIATIVE MEDICINE 06/28/21 Kylie Mosher, RN Specialty Novelty Maker HOSPICE & PALLIATIVE MEDICINE 09/27/21 Carpenters Supervisor Relationship Specialty [place] [address] [place] [address] PCP - General Internal Medicine 05/07/16 [place] [address] [place] [address] Consulting Hematology/Oncology 01/28/12 [place] [address] [place] [address] Hematology/Oncology 03/30/21 Kristina Pete, MAE Specialty Novelty Maker HOSPICE & PALLIATIVE MEDICINE 05/22/21 Juan Francisco Hutchinson, PHOTOTYPESETTER OPERATOR.CLINICAL TRIAL DATA MANAGER [address] [place] [address] Palliative Medicine Provider HOSPICE & PALLIATIVE MEDICINE 06/28/21 Kylie Mosher, RN Specialty Novelty Maker HOSPICE & PALLIATIVE MEDICINE 09/27/21 Carpenters Supervisor Relationship Specialty [place] [address] [place] [address] PCP - General Internal Medicine 05/07/16 [place] [address] [place] [address] Consulting Hematology/Oncology 01/28/[address] [place] [address] [facility] [place] [address] Hematology/Oncology 03/30/21 Kristina Pete, RN Specialty Novelty Maker HOSPICE & PALLIATIVE MEDICINE 05/22/21 Juan Francisco Hutchinson, PHOTOTYPESETTER OPERATOR.CLINICAL TRIAL DATA MANAGER [address] [place] [address] Palliative Medicine Provider HOSPICE & PALLIATIVE MEDICINE 06/28/21 Kylie Mosher, RN Specialty Novelty Maker HOSPICE & PALLIATIVE MEDICINE 09/27/21 Carpenters Supervisor Relationship Specialty [place] [address] [place] [address] PCP - General Internal Medicine 05/07/16 [place] [address] [place] [address] Consulting Hematology/Oncology 01/28/12 [place] [address] [place] [address] Hematology/Oncology 03/30/21 Kristina Pete, RN Specialty Novelty Maker HOSPICE & PALLIATIVE MEDICINE 05/22/21 Juan Francisco Hutchinson, PHOTOTYPESETTER OPERATOR.CLINICAL TRIAL DATA MANAGER [address] [place] [address] Palliative Medicine Provider HOSPICE & PALLIATIVE MEDICINE 06/28/21 Kylie oMsher, RN Specialty Novelty Maker HOSPICE & PALLIATIVE MEDICINE 09/27/21 Carpenters Supervisor Relationship Specialty [place] [address] [place] [address] PCP - General Internal Medicine 05/07/16 [place] [address] [place] [address] Consulting Hematology/Oncology 01/28/12 [place] [address] [place] [address] Hematology/Oncology 03/30/21 Kristina Pete, RN Specialty Novelty Maker HOSPICE & PALLIATIVE MEDICINE 05/22/21 Juan Francisco Hutchinson, PHOTOTYPESETTER OPERATOR.CLINICAL TRIAL DATA MANAGER [address] [place] [address] Palliative Medicine Provider HOSPICE & PALLIATIVE MEDICINE 06/28/21 Kylie Mosher, RN Specialty Novelty Maker HOSPICE & PALLIATIVE MEDICINE 09/27/21 Carpenters Supervisor Relationship Specialty Start Date [place] [address] PCP - General Internal Medicine 05/07/16 [place] [address] [place] [address] Consulting Hematology/Oncology 01/28/12 [place] [address] [place] [address] Hematology/Oncology 03/30/21 Kristina Pete, RN Specialty Novelty Maker HOSPICE & PALLIATIVE MEDICINE 05/22/21 Juan Francisco Hutchinson, PHOTOTYPESETTER OPERATOR.CLINICAL TRIAL DATA MANAGER [address] [place] [address] Palliative Medicine Provider HOSPICE & PALLIATIVE MEDICINE 06/28/21 Kylie Mosher, RN Specialty Novelty Maker HOSPICE & PALLIATIVE MEDICINE 09/27/21 Carpenters Supervisor Relationship Specialty [place] [address] [place] [address] PCP - General Internal Medicine 05/07/16 [place] [address] [place] [address] Consulting Hematology/Oncology 01/28/12 [place] [address] [place] [address] Hematology/Oncology 03/30/21 Kristina Pete, RN Specialty Novelty Maker HOSPICE & PALLIATIVE MEDICINE 05/22/21 Juan Francisco Hutchinson, PHOTOTYPESETTER OPERATOR.CLINICAL TRIAL DATA MANAGER [address] [place] [address] Palliative Medicine Provider HOSPICE & PALLIATIVE MEDICINE 06/28/21 Kylie Mosher, RN Specialty Novelty Maker HOSPICE & PALLIATIVE MEDICINE 09/27/21 Carpenters Supervisor Relationship Specialty [place] [address] [place] [address] PCP - General Internal Medicine 05/07/16 [place] [address] [place] [address] Consulting Hematology/Oncology 01/28/12 [place] [address] [place] [address] Hematology/Oncology 03/30/21 Kristina Pete, MAE Specialty Novelty Maker HOSPICE & PALLIATIVE MEDICINE 05/22/21 Juan Francisco Hutchinson, PHOTOTYPESETTER OPERATOR.CLINICAL TRIAL DATA MANAGER [address] [place] [address] Palliative Medicine Provider HOSPICE & PALLIATIVE MEDICINE 06/28/21 Kylie Mosher, RN Specialty Novelty Maker HOSPICE & PALLIATIVE MEDICINE 09/27/21 Carpenters Supervisor Relationship Specialty [place] [address] [place] [address] PCP - General Internal Medicine 05/07/16 [place] [address] [place] [address] Consulting Hematology/Oncology 01/28/12 [place] [address] [place] [address] Hematology/Oncology 03/30/21 Kristina Pete, MAE Specialty Novelty Maker HOSPICE & PALLIATIVE MEDICINE 05/22/21 Juan Francisco Hutchinson, PHOTOTYPESETTER OPERATOR.CLINICAL TRIAL DATA MANAGER [address] [place] [address] Palliative Medicine Provider HOSPICE & PALLIATIVE MEDICINE 06/28/21 Kylie Mosher, RN Specialty Novelty Maker HOSPICE & PALLIATIVE MEDICINE 09/27/21 Carpenters Supervisor Relationship Specialty [place] [address] [place] [address] PCP - General Internal Medicine 05/07/16 [place] [address] [place] [address] Consulting Hematology/Oncology 01/28/12 [place] [address] [place] [address] Hematology/Oncology 03/30/21 Kristina Pete, MAE Specialty Novelty Maker HOSPICE & PALLIATIVE MEDICINE 05/22/21 Juan Francisco Hutchinson, PHOTOTYPESETTER OPERATOR.CLINICAL TRIAL DATA MANAGER [address] [place] [address] Palliative Medicine Provider HOSPICE & PALLIATIVE MEDICINE 06/28/21 Kylie Mosher, RN Specialty Novelty Maker HOSPICE & PALLIATIVE MEDICINE 09/27/21 Carpenters Supervisor Relationship Specialty [place] [address] [place] [address] PCP - General Internal Medicine 05/07/16 [place] [address] [place] [address] Consulting Hematology/Oncology 01/28/12 [place] [address] [place] [address] Hematology/Oncology 03/30/21 Kristina Pete, RN Specialty Novelty Maker HOSPICE & PALLIATIVE MEDICINE 05/22/21 Juan Francisco Hutchinson, PHOTOTYPESETTER OPERATOR.CLINICAL TRIAL DATA MANAGER [address] [place] [address] Palliative Medicine Provider HOSPICE & PALLIATIVE MEDICINE 06/28/21 Kylie Mosher, RN Specialty Novelty Maker HOSPICE & PALLIATIVE MEDICINE 09/27/21 Carpenters Supervisor Relationship Specialty [place] [address] [place] [address] PCP - General Internal Medicine 05/07/16 [place] [address] [place] [address] Consulting Hematology/Oncology 01/28/12 [place] [address] [place] [address] Hematology/Oncology 03/30/21 Kristina Pete, MAE Specialty Novelty Maker HOSPICE & PALLIATIVE MEDICINE 05/22/21 Juan Francisco Hutchinson, PHOTOTYPESETTER OPERATOR.CLINICAL TRIAL DATA MANAGER [address] [place] [address] Palliative Medicine Provider HOSPICE & PALLIATIVE MEDICINE 06/28/21 Kylie Mosher, RN Specialty Novelty Maker HOSPICE & PALLIATIVE MEDICINE 09/27/21 Carpenters Supervisor Relationship Specialty [place] [address] [place] [address] PCP - General Internal Medicine 05/07/16 [place] [address] [place] [address] Consulting Hematology/Oncology 01/28/12 [place] [address] [place] [address] Hematology/Oncology 03/30/21 Kristina Pete, RN Specialty Novelty Maker HOSPICE & PALLIATIVE MEDICINE 05/22/21 Juan Francisco Hutchinson, PHOTOTYPESETTER OPERATOR.CLINICAL TRIAL DATA MANAGER [address] [place] [address] Palliative Medicine Provider HOSPICE & PALLIATIVE MEDICINE 06/28/21 Kylie Mosher, RN Specialty Novelty Maker HOSPICE & PALLIATIVE MEDICINE 09/27/21 Carpenters Supervisor Relationship Specialty [place] [address] [place] [address] PCP - General Internal Medicine 05/07/16 [place] [address] [place] [address] Consulting Hematology/Oncology 01/28/12 [place] [address] [place] [address] Hematology/Oncology 03/30/21 Kristina Pete, MAE Specialty Novelty Maker HOSPICE & PALLIATIVE MEDICINE 05/22/21 Juan Francisco Hutchinson, PHOTOTYPESETTER OPERATOR.CLINICAL TRIAL DATA MANAGER [address] [place] [address] Palliative Medicine Provider HOSPICE & PALLIATIVE MEDICINE 06/28/21 Kylie Mosher, RN Specialty Novelty Maker HOSPICE & PALLIATIVE MEDICINE 09/27/21 Carpenters Supervisor Relationship Specialty [place] [address] [place] [address] PCP - General Internal Medicine 05/07/16 [place] [address] [place] [address] Consulting Hematology/Oncology 01/28/12 [place] [address] [place] [address] Hematology/Oncology 03/30/21 Kristina Pete RN Specialty Novelty Maker HOSPICE & PALLIATIVE MEDICINE 05/22/21 Juan Francisco Hutchinson, PHOTOTYPESETTER OPERATOR.CLINICAL TRIAL DATA MANAGER [address] [place] [address] Palliative Medicine Provider HOSPICE & PALLIATIVE MEDICINE 06/28/21 Kylie Mosher, RN Specialty Novelty Maker HOSPICE & PALLIATIVE MEDICINE 09/27/21 Carpenters Supervisor Relationship Specialty [place] [address] [place] [address] PCP - General Internal Medicine 05/07/16 [place] [address] [place] [address] Consulting Hematology/Oncology 01/28/12 [place] [address] [place] [address] Hematology/Oncology 03/30/21 Juan Francisco Hutchinson, PHOTOTYPESETTER OPERATOR.CLINICAL TRIAL DATA MANAGER [address] [place] [address] Palliative Medicine Provider HOSPICE & PALLIATIVE MEDICINE 06/28/21 Kylie Mosher, RN Specialty Novelty Maker HOSPICE & PALLIATIVE MEDICINE 09/27/21 Carpenters Supervisor Relationship Specialty [place] [address] [place] [address] PCP - General Internal Medicine 05/07/16 [place] [address] [place] [address] Consulting Hematology/Oncology 01/28/12 [place] [address] [place] [address] Hematology/Oncology 03/30/21 Juan Francisco Hutchinson, PHOTOTYPESETTER OPERATOR.CLINICAL TRIAL DATA MANAGER [address] [place] [address] Palliative Medicine Provider HOSPICE & PALLIATIVE MEDICINE 06/28/21 Kylie Mosher, RN Specialty Novelty Maker HOSPICE & PALLIATIVE MEDICINE 09/27/21 Carpenters Supervisor Relationship Specialty [place] [address] [place] [address] PCP - General Internal Medicine 05/07/16 [place] [address] [place] [address] Consulting Hematology/Oncology 01/28/12 [place] [address] [place] [address] Hematology/Oncology 03/30/21 Juan Francisco Hutchinson, PHOTOTYPESETTER OPERATOR.CLINICAL TRIAL DATA MANAGER [address] [place] [address] Palliative Medicine Provider HOSPICE & PALLIATIVE MEDICINE 06/28/21 Kylie Mosher RN Specialty Novelty Maker HOSPICE & PALLIATIVE MEDICINE 09/27/21 Carpenters Supervisor Relationship Specialty [place] [address] [place] [address] PCP - General Internal Medicine 05/07/16 [place] [address] [place] [address] Consulting Hematology/Oncology 01/28/12 [place] [address] [place] [address] Hematology/Oncology 03/30/21 Juan Francisco Hutchinson, PHOTOTYPESETTER OPERATOR.CLINICAL TRIAL DATA MANAGER [address] [place] [address] Palliative Medicine Provider HOSPICE & PALLIATIVE MEDICINE 06/28/21 Kylie Mosher, RN Specialty Novelty Maker HOSPICE & PALLIATIVE MEDICINE 09/27/21 Carpenters Supervisor Relationship Specialty [place] [address] [place] [id number] PCP - General Internal Medicine 05/07/16 [place] [address] [place] [address] Consulting Hematology/Oncology 01/28/[address] [place] [address] [facility] [place] [id number] Hematology/Oncology 03/30/21 Juan Francisco Hutchinson, PHOTOTYPESETTER OPERATOR.CLINICAL TRIAL DATA MANAGER [address] [place] [address] Palliative Medicine Provider HOSPICE & PALLIATIVE MEDICINE 06/28/21 Kylie Mosher, RN Specialty Novelty Maker HOSPICE & PALLIATIVE MEDICINE 09/27/21 Carpenters Supervisor Relationship Specialty [place] [address] [place] [address] PCP - General Internal Medicine 05/07/16 [place] [address] [place] [address] Consulting Hematology/Oncology 01/28/12 [place] [address] [place] [address] Hematology/Oncology 03/30/21 Juan Francisco Hutchinson, PHOTOTYPESETTER OPERATOR.CLINICAL TRIAL DATA MANAGER [address] [place] [address] Palliative Medicine Provider HOSPICE & PALLIATIVE MEDICINE 06/28/21 Kylie Mosher, RN Specialty Novelty Maker HOSPICE & PALLIATIVE MEDICINE 09/27/21 Carpenters Supervisor Relationship Specialty [place] [address] [place] [address] PCP - General Internal Medicine 05/07/16 [place] [address] [place] [address] Consulting Hematology/Oncology 01/28/12 [place] [address] [place] [address] Hematology/Oncology 03/30/21 Juan Francisco Hutchinson, PHOTOTYPESETTER OPERATOR.CLINICAL TRIAL DATA MANAGER [address] [place] [address] Palliative Medicine Provider HOSPICE & PALLIATIVE MEDICINE 06/28/21 Kylie Mosher RN Specialty Novelty Maker HOSPICE & PALLIATIVE MEDICINE 09/27/21 Carpenters Supervisor Relationship Specialty [place] [address] [place] [address] PCP - General Internal Medicine 05/07/16 [place] [address] [place] [address] Consulting Hematology/Oncology 01/28/12 [place] [address] [place] [address] Hematology/Oncology 03/30/21 Juan Francisco Hutchinson, PHOTOTYPESETTER OPERATOR.CLINICAL TRIAL DATA MANAGER [address] [place] [id number] Palliative Medicine Provider HOSPICE & PALLIATIVE MEDICINE 06/28/21 Kylie Mosher, RN Specialty Novelty Maker HOSPICE & PALLIATIVE MEDICINE 09/27/21 Carpenters Supervisor Relationship Specialty [place] [address] [place] [address] PCP - General Internal Medicine 05/07/[address] [place] [address] [facility] [address] Consulting Hematology/Oncology 01/28/[address] [place] [address] [facility] [place] [address] Hematology/Oncology 03/30/21 Juan Francisco Hutchinson, PHOTOTYPESETTER OPERATOR.CLINICAL TRIAL DATA MANAGER [address] [place] [address] Palliative Medicine Provider HOSPICE & PALLIATIVE MEDICINE 06/28/21 Kylie Mosher, RN Specialty Novelty Maker HOSPICE & PALLIATIVE MEDICINE 09/27/21 Carpenters Supervisor Relationship Specialty [place] [address] [place] [address] PCP - General Internal Medicine 05/07/[address] [place] [address] [facility] [place] [address] Consulting Hematology/Oncology 01/28/12 [place] [address] [place] [address] Hematology/Oncology 03/30/21 Kristina Pete, RN Specialty Novelty Maker HOSPICE & PALLIATIVE MEDICINE 05/22/21 08/06/22 Juan Francisco Hutchinson, PHOTOTYPESETTER OPERATOR.CLINICAL TRIAL DATA MANAGER [address] [place] [address] Palliative Medicine Provider HOSPICE & PALLIATIVE MEDICINE 06/28/21 Kylie Mosher, MAE Specialty Novelty Maker HOSPICE & PALLIATIVE MEDICINE 09/27/21 Carpenters Supervisor Relationship Specialty [place] [address] [facility] [place] [id number] PCP - General Internal Medicine 05/07/16 [place] [address] [place] [address] Consulting Hematology/Oncology 01/28/[address] [place] [address] [facility] [place] [address] Hematology/Oncology 03/30/21 Juan Francisco Hutchinson, PHOTOTYPESETTER OPERATOR.CLINICAL TRIAL DATA MANAGER [address] [place] [address] Palliative Medicine Provider HOSPICE & PALLIATIVE MEDICINE 06/28/21 Kylie Mosher RN Specialty Novelty Maker HOSPICE & PALLIATIVE MEDICINE 09/27/21 Carpenters Supervisor Relationship Specialty [place] [address] [facility] [place] [address] PCP - General Internal Medicine 05/07/16 [place] [address] [place] [address] Consulting Hematology/Oncology 01/28/[address] [place] [address] [facility] [address] Hematology/Oncology 03/30/21 Juan Francisco Hutchinson, PHOTOTYPESETTER OPERATOR.CLINICAL TRIAL DATA MANAGER [address] [place] [address] Palliative Medicine Provider HOSPICE & PALLIATIVE MEDICINE 06/28/21 Kylie Mosher RN Specialty Novelty Maker HOSPICE & PALLIATIVE MEDICINE 09/27/21 Carpenters Supervisor Relationship Specialty [place] [address] [facility] [address] PCP - General Internal Medicine 05/07/[address] [place] [address] [facility] [address] Consulting Hematology/Oncology 01/28/[address] [place] [address] [facility] [place] [address] Hematology/Oncology 03/30/21 Juan Francisco Hutchinson, PHOTOTYPESETTER OPERATOR.CLINICAL TRIAL DATA MANAGER [address] [place] [address] Palliative Medicine Provider HOSPICE & PALLIATIVE MEDICINE 06/28/21 Kylie Mosher RN Specialty Novelty Maker HOSPICE & PALLIATIVE MEDICINE 09/27/21 Carpenters Supervisor Relationship Specialty [place] [address] [place] [address] PCP - General Internal Medicine 05/07/16 [place] [address] [place] [address] Consulting Hematology/Oncology 01/28/12 [place] [address] [place] [address] Hematology/Oncology 03/30/21 Juan Francisco Hutchinson, PHOTOTYPESETTER OPERATOR.CLINICAL TRIAL DATA MANAGER [address] [place] [id number] Palliative Medicine Provider HOSPICE & PALLIATIVE MEDICINE 06/28/21 Kylie Mosher RN Specialty Novelty Maker HOSPICE & PALLIATIVE MEDICINE 09/27/21 Carpenters Supervisor Relationship Specialty [place] [address] [place] [address] PCP - General Internal Medicine 05/07/16 [place] [address] [place] [address] Consulting Hematology/Oncology 01/28/12 [place] [address] [place] [address] Hematology/Oncology 03/30/21 Juan Francisco Hutchinson, PHOTOTYPESETTER OPERATOR.CLINICAL TRIAL DATA MANAGER [address] [place] [address] Palliative Medicine Provider HOSPICE & PALLIATIVE MEDICINE 06/28/21 Kylie Mosher RN Specialty Novelty Maker HOSPICE & PALLIATIVE MEDICINE 09/27/21 Carpenters Supervisor Relationship Specialty [place] [address] [place] [address] PCP - General Internal Medicine 05/07/16 [place] [address] [place] [address] Consulting Hematology/Oncology 01/28/12 [place] [address] [place] [address] Hematology/Oncology 03/30/21 Juan Francisco Hutchinson, PHOTOTYPESETTER OPERATOR.CLINICAL TRIAL DATA MANAGER [address] [place] [address] Palliative Medicine Provider HOSPICE & PALLIATIVE MEDICINE 06/28/21 Kylie Mosher RN Specialty Novelty Maker HOSPICE & PALLIATIVE MEDICINE 09/27/21 Carpenters Supervisor Relationship Specialty [place] [address] [place] [address] PCP - General Internal Medicine 05/07/16 [place] [address] [place] [address] Consulting Hematology/Oncology 01/28/12 [place] [address] [place] [address] Hematology/Oncology 03/30/21 Juan Francisco Hutchinson, PHOTOTYPESETTER OPERATOR.CLINICAL TRIAL DATA MANAGER [address] [place] [address] Palliative Medicine Provider HOSPICE & PALLIATIVE MEDICINE 06/28/21 Kylie Mosher, RN Specialty Novelty Maker HOSPICE & PALLIATIVE MEDICINE 09/27/21 Carpenters Supervisor Relationship Specialty [place] [address] [facility] [place] [address] PCP - General Internal Medicine 05/07/16 [place] [address] [place] [address] Consulting Hematology/Oncology 01/28/[address] [place] [address] [facility] [address] Hematology/Oncology 03/30/21 Juan Francisco Hutchinson, PHOTOTYPESETTER OPERATOR.CLINICAL TRIAL DATA MANAGER [address] [place] [address] Palliative Medicine Provider HOSPICE & PALLIATIVE MEDICINE 06/28/21 Kylie Mosher, MAE Specialty Novelty Maker HOSPICE & PALLIATIVE MEDICINE 09/27/21 Carpenters Supervisor Relationship Specialty [place] [address] [place] [address] PCP - General Internal Medicine 05/07/[address] [place] [address] [facility] [place] [address] Consulting Hematology/Oncology 01/28/12 [place] [address] [place] [address] Hematology/Oncology 03/30/21 Juan Francisco Hutchinson, PHOTOTYPESETTER OPERATOR.CLINICAL TRIAL DATA MANAGER [address] [place] [address] Palliative Medicine Provider HOSPICE & PALLIATIVE MEDICINE 06/28/21 Kylie Mosher, RN Specialty Novelty Maker HOSPICE & PALLIATIVE MEDICINE 09/27/21 Carpenters Supervisor Relationship Specialty [place] [address] [facility] [place] [address] PCP - General Internal Medicine 05/07/[address] [place] [address] [facility] [address] Consulting Hematology/Oncology 01/28/[address] [place] [address] [facility] [address] Hematology/Oncology 03/30/21 Juan Francisco Hutchinson, LORY.CLINICAL TRIAL DATA MANAGER [address] [place] [id number] Palliative Medicine Provider HOSPICE & PALLIATIVE MEDICINE 06/28/21 Kylie Mosher, RN Specialty Novelty Maker HOSPICE & PALLIATIVE MEDICINE 09/27/21 Carpenters Supervisor Relationship Specialty [place] [address] [facility] [place] [address] PCP - General Internal Medicine 05/07/[address] [place] [address] [facility] [address] Consulting Hematology/Oncology 01/28/[address] [place] [address] [facility] [address] Hematology/Oncology 03/30/21 Juan Francisco Hutchinson, PHOTOTYPESETTER OPERATOR.CLINICAL TRIAL DATA MANAGER [address] [place] [id number] Palliative Medicine Provider HOSPICE & PALLIATIVE MEDICINE 06/28/21 Kylie Mosher, RN Specialty Novelty Maker HOSPICE & PALLIATIVE MEDICINE 09/27/21 Carpenters Supervisor Relationship Specialty [place] [address] [place] [address] PCP - General Internal Medicine 05/07/16 [place] [address] [place] [address] Consulting Hematology/Oncology 01/28/12 [place] [address] [place] [address] Hematology/Oncology 03/30/21 Juan Francisco Hutchinson, PHOTOTYPESETTER OPERATOR.CLINICAL TRIAL DATA MANAGER [address] [place] [id number] Palliative Medicine Provider HOSPICE & PALLIATIVE MEDICINE 06/28/21 Kylei Mosher, RN Specialty Novelty Maker HOSPICE & PALLIATIVE MEDICINE 09/27/21 Carpenters Supervisor Relationship Specialty [place] [address] [place] [address] PCP - General Internal Medicine 05/07/16 [place] [address] [place] [address] Consulting Hematology/Oncology 01/28/12 Cyn Ramires [place] [address] [place] [address] Hematology/Oncology 03/30/21 Juan Francisco Hutchinson, PHOTOTYPESETTER OPERATOR.CLINICAL TRIAL DATA MANAGER [address] [place] [id number] Palliative Medicine Provider HOSPICE & PALLIATIVE MEDICINE 06/28/21 Kylie Mosher, RN Specialty Novelty Maker HOSPICE & PALLIATIVE MEDICINE 09/27/21 Team Status: Active Member Role Status Dates Jose Vail MD Primary Care Provider Active Team Status: Inactive Member Role Status Dates Jose Vail MD Primary Care Provider Active Keke Bright NP-C Attending Provider Active Carpenters Supervisor Relationship Specialty Start Date End Date Jose Vail MD PCP - General Internal Medicine 05/07/16 Juan Francisco Hutchinson, PHOTOTYPESETTER OPERATOR.CLINICAL TRIAL DATA MANAGER [address] [place] [id number] Palliative Medicine Provider Hospice & Palliative Medicine 06/28/21 Kylie Mosher, RN Specialty Novelty Maker Hospice & Palliative Medicine 09/27/21 Alexsander Ledezma MD [address] [place] [address] [place] [address] Physician Hematology 02/08/23 Linette Skinner, PHOTOTYPESETTER OPERATOR.CLINICAL TRIAL DATA MANAGER [address] [place] [address] Referring Nurse Practitioner 02/26/23 Linette Skinner, PHOTOTYPESETTER OPERATOR.CLINICAL TRIAL DATA MANAGER [address] [place] [address] Referring Nurse Practitioner 03/06/23 Fabiana Johnson LSW Laydown Machine Operator 03/08/23 Carpenters Supervisor Relationship Specialty Start Date End Date Jose Vail MD PCP - General Internal Medicine 05/07/16 Juan Francisco Hutchinson, PHOTOTYPESETTER OPERATOR.CLINICAL TRIAL DATA MANAGER [address] [place] [address] Palliative Medicine Provider Hospice & Palliative Medicine 06/28/21 Kylie Mosher, RN Specialty Novelty Maker Hospice & Palliative Medicine 09/27/21 Alexsander Ledezma MD [address] [place] [address] Physician Hematology 02/08/23 Linette Skinner, PHOTOTYPESETTER OPERATOR.CLINICAL TRIAL DATA MANAGER [address] [facility] [place] [address] Referring Nurse Practitioner 02/26/23 Linette Skinner, PHOTOTYPESETTER OPERATOR.CLINICAL TRIAL DATA MANAGER [address] [facility] [place] [address] Referring Nurse Practitioner 03/06/23 Fabiana Johnson LSW Laydown Machine Operator 03/08/23 Carpenters Supervisor Relationship Specialty Start Date End Date Jose Vail MD PCP - General Internal Medicine 05/07/16 Juan Francisco Hutchinson, PHOTOTYPESETTER OPERATOR.CLINICAL TRIAL DATA MANAGER [address] [place] [address] Palliative Medicine Provider Hospice & Palliative Medicine 06/28/21 Kylie Mosher, RN Specialty Novelty Maker Hospice & Palliative Medicine 09/27/21 Alexsander Ledezma MD [address] [place] [address] Physician Hematology 02/08/23 Linette Skinner, PHOTOTYPESETTER OPERATOR.CLINICAL TRIAL DATA MANAGER [address] [facility] [place] [address] Referring Nurse Practitioner 02/26/23 Linette Skinner, PHOTOTYPESETTER OPERATOR.CLINICAL TRIAL DATA MANAGER [address] [facility] [place] [address] Referring Nurse Practitioner 03/06/23 Fabiana Johnson LSW Laydown Machine Operator 03/08/23 Carpenters Supervisor Relationship Specialty Start Date End Date Jose Vail MD PCP - General Internal Medicine 05/07/16 Juan Francisco Hutchinson, PHOTOTYPESETTER OPERATOR.CLINICAL TRIAL DATA MANAGER [address] [place] [address] Palliative Medicine Provider Hospice & Palliative Medicine 06/28/21 Kylie Mosher, RN Specialty Novelty Maker Hospice & Palliative Medicine 09/27/21 Alexsander Ledezma MD [address] [place] [address] [place] [address] Physician Hematology 02/08/23 Linette Skinner, PHOTOTYPESETTER OPERATOR.CLINICAL TRIAL DATA MANAGER [address] [facility] [place] [address] Referring Nurse Practitioner 02/26/23 Linette Skinner, PHOTOTYPESETTER OPERATOR.CLINICAL TRIAL DATA MANAGER [address] [facility] [place] [address] Referring Nurse Practitioner 03/06/23 Fabiana Johnson LSW Laydown Machine Operator 03/08/23 Carpenters Supervisor Relationship Specialty Start Date End Date Jose Vail MD [address] [facility] [place] [address] PCP - [employer] 02/18/22 Jose Vail MD [address] [facility] [place] [address] PCP - General Internal Medicine 06/26/22 Carpenters Supervisor Relationship Specialty Start Date End Date Jose Vail MD PCP - General Internal Medicine 05/07/16 Juan Francisco Hutchinson, PHOTOTYPESETTER OPERATOR.CLINICAL TRIAL DATA MANAGER [address] [place] [address] Palliative Medicine Provider Hospice & Palliative Medicine 06/28/21 Kylie Mosher, RN Specialty Novelty Maker Hospice & Palliative Medicine 09/27/21 Alexsander Ledezma MD [address] [place] [address] [place] [address] Physician Hematology 02/08/23 Linette Skinner, PHOTOTYPESETTER OPERATOR.CLINICAL TRIAL DATA MANAGER [address] [facility] [place] [address] Referring Nurse Practitioner 02/26/23 Linette Skinner, PHOTOTYPESETTER OPERATOR.CLINICAL TRIAL DATA MANAGER [address] [facility] [place] [address] Referring Nurse Practitioner 03/06/23 Fabiana Johnson LSW Laydown Machine Operator 03/08/23 Goals (unrecognized section and content) Goals may be documented in a n alternate section FOR RECORDS PERTAINING TO PATIENTS WHO ARE OR HAVE BEEN ENROLLED IN A CHEMICAL DEPENDENCY/SUBSTANCEABUSE PROGRAM, SOME INFORMATION MAY BE OMITTED. This clinical summary was aggregated from multiple sources. Caution should be exercised in using it in the provision of clinical care. This summary normalizes information from multiple sources, and as a consequence, information in this document may materially change the coding, format and clinical context of patient data. In addition, data may be omitted in some cases. CLINICAL DECISIONS SHOULD BE BASED ON THE PRIMARY CLINICAL RECORDS. [facility], [facility]. provides no warranty or guarantee of the accuracy or completeness of information in this document.
[2023-04-02 03:31] LABS: Anion Gap 11.3; BUN Creatinine Ratio 13.6; Calcium 8.7 mg/dL (8.5-10.1); Carbon Dioxide 28.7 mmol/L (21.0-32.0); Chloride 101 mmol/L (98-107); Estimated GFR (African America >60 (>=60); Estimated GFR (Non-African Ame >60 (>=60); Glucose 108 mg/dL (74-106); Sodium 137 mmol/L (136-145); Troponin I High Sensitivity 13.6 pg/mL (4.0-51.3)
[2023-04-02 03:35] LABS: Basophils Percent Auto 0.3 % (0.2-2.0); Eosinophils Percent Auto 0.2 % (0.9-7.0); Hemoglobin 14.9 g/dL (12.0-16.0); Immature Granulocytes Abs Auto 0.02 10^3/uL (0.00-0.03); Immature Granulocytes Pct Auto 0.3 % (0.0-0.5); Lymphocytes Absolute Auto 1.5 10^3/uL (1.2-3.8); Lymphocytes Percent Auto 24.3 % (20.5-60.0); Mean Corpuscular HGB Conc 33.1 g/dL (29.9-35.2); Mean Corpuscular Hemoglobin 31.1 pg (26.7-34.0); Mean Corpuscular Volume 93.9 fL (81.0-99.0); Mean Platelet Volume 9.4 fL (9.5-13.5); Monocytes Absolute Auto 0.8 10^3/uL (0.3-0.8); Monocytes Percent Auto 12.1 % (1.7-12.0); Neutrophils Percent Auto 62.8 % (43.0-75.0); Platelet Count 237 10^3/uL (150-450); Red Blood Count 4.79 10^6/uL (4.20-5.40); White Blood Count 6.3 10^3/uL (4.0-11.0)
[2023-04-02 03:35] LABS: Influenza A\\H3 DETECTED
--- NOTE | 2023-04-02 04:04 | PC.NURSE ---
NC in place d/t hypoxia. pt does not wear O2 at home.
--- NOTE | 2023-04-02 04:05 | ED.URI1 ---
HPI - URI/Sore Throat General Chief Complaint: Upper Respiratory Infection Stated Complaint: COUGH FEVER WEAKNESS Time Seen by Provider: 04/02/23 03:44 Source: patient History of Present Illness HPI Narrative: past history of Hodgkins and PE. Hodgkins currently undercontrol and no current treatment for past 6 months. Seen couple of days ago with headache felt to represent trigeminal neuralgia and treated with Tegretol. Headache continues but improved. Also at last visit had cough and mild wheeze. cxray was read as neg and COVID10 and Influeza neg. Now returns because of cough. Has fever and feels there is a rattle in her chest. Related Data Home Medications Medication Instructions Recorded Confirmed azelastine 137 mcg (0.1 %) nasal 1 spray intranasal BID 03/31/23 04/02/23 spray aerosol fluticasone furoate 100 1 inh inhalation QAM 03/31/23 04/02/23 mcg-vilanterol 25 mcg/dose inhalation powder (Breo Ellipta) atenolol 50 mg tablet 50 mg PO BID 04/02/23 04/02/23 dexlansoprazole 30 mg 30 mg PO QAM 04/02/23 04/02/23 capsule,biphase delayed release gabapentin 300 mg capsule 300 mg PO BID 04/02/23 04/02/23 lorazepam 0.5 mg tablet 0.5 mg PO QID PRN anxiety 04/02/23 04/02/23 mirtazapine 30 mg tablet 30 mg PO QPM 04/02/23 04/02/23 oxycodone 10 mg tablet 10 mg PO Q6H PRN pain 04/02/23 04/02/23 rivaroxaban 10 mg tablet (Xarelto) 10 mg PO DAILY 04/02/23 04/02/23 trazodone 100 mg tablet 100 mg PO QPM PRN sleep 04/02/23 04/02/23 Allergies Allergy/AdvReac Type Severity Reaction Status Date / Time Sulfa (Sulfonamide AdvReac Mild Rash Verified 03/31/23 02:19 Antibiotics) Review of Systems ROS Status of ROS 10 or more systems reviewed and unremarkable except as noted in history and below [facility] Medical History (Updated 04/02/23 @ 04:19 by Jose Carlos Mckeon MD) Hodgkin lymphoma ?C81.90 - Hodgkin lymphoma, unspecified, unspecified site (ICD-10) Social History Smoking status: Never smoker Exam Constitutional Vital Signs, click to edit/add: Last Vital Signs Temp 100 F 04/02/23 04:14 Pulse 110 H 04/02/23 03:20 Resp 20 04/02/23 03:20 BP 104/73 04/02/23 02:35 Pulse Ox 94 L 04/02/23 04:04 O2 Del Method Nasal Cannula 04/02/23 04:04 O2 Flow Rate 1.5 04/02/23 04:04 Common normals: no apparent distress, average body habitus, oriented x3, no limitations, healthy appearing, alert and well nourished HENDE Common normals: normocephalic and head/scalp atraumatic Eye Common normals: EOMs intact bilaterally and conjunctivae normal Respiratory Common normals: normal respiratory effort, no retractions, no use of accessory muscles, clear to auscultation bilaterally and percussion normal Other: faint wheeze right chest Cardio Common normals: S1 normal heart sound and S2 normal heart sound Rate: tachycardic GI Common normals: Normal to inspection, nondistended, normoactive bowel sounds present, soft to palpation and non-tender Extremity Common normals: normal to inspection and full ROM Neuro Common normals: oriented x3, CN's II-XII intact bilaterally, moves all extremities and no focal motor deficits Psych Appearance: grossly normal Course Vital Signs Vital signs: Vital Signs Temperature 102.4 F H 04/02/23 02:35 Pulse Rate 125 H 04/02/23 02:35 Respiratory Rate 18 04/02/23 02:35 Blood Pressure 104/73 04/02/23 02:35 Pulse Oximetry 93 L 04/02/23 02:35 Oxygen Delivery Method Room Air 04/02/23 02:35 Temperature 100 F 04/02/23 04:14 Pulse Rate 110 H 04/02/23 03:20 Respiratory Rate 20 04/02/23 03:20 Blood Pressure 104/73 04/02/23 02:35 Pulse Oximetry 94 L 04/02/23 04:04 Oxygen Delivery Method Nasal Cannula 04/02/23 04:04 Oxygen Delivery Flow Rate 1.5 04/02/23 04:04 MDM - URI/Sore Throat MDM Narrative Medical decision making narrative: patient seen couple of days ago and diagnosed with URI and trigeminal neuralgia. Now returns. Headache improved but continued cough. cxray last visit read as clear. Cxray this visit with airway opacities medial lungs and nasal swab positive for influenza. RA pulse ox 89%. Blood cx x 2 ordered and treatment for CAP with Rocephin and zithromax ordered. Lab Data Labs: Lab Results 04/02/23 04/02/23 Range/Units 02:38 02:50 WBC 6.3 (4.0-11.0) 10^3/uL RBC 4.79 (4.20-5.40) 10^6/uL Hgb 14.9 (12.0-16.0) g/dL Hct 45.0 (36.0-48.0) % MCV 93.9 (81.0-99.0) fL MCH 31.1 (26.7-34.0) pg MCHC 33.1 (29.9-35.2) g/dL RDW 13.0 (11.0-15.0) % Plt Count 237 (150-450) 10^3/uL MPV 9.4 L (9.5-13.5) fL Neut % (Auto) 62.8 (43.0-75.0) % Lymph % (Auto) 24.3 (20.5-60.0) % [place] % (Auto) 12.1 H (1.7-12.0) % Eos % (Auto) 0.2 L (0.9-7.0) % Baso % (Auto) 0.3 (0.2-2.0) % Neut # (Auto) 4.0 (1.4-6.5) 10^3/uL Lymph # (Auto) 1.5 (1.2-3.8) 10^3/uL [place] # (Auto) 0.8 (0.3-0.8) 10^3/uL Eos # (Auto) 0.0 (0.0-0.7) 10^3/uL Baso # (Auto) 0.0 (0.0-0.1) 10^3/uL Abs Immat Gran (auto) 0.02 (0.00-0.03) 10^3/uL Imm/Tot Granulo (auto) 0.3 (0.0-0.5) % Sodium 137 (136-145) mmol/L Potassium 4.0 (3.5-5.1) mmol/L Chloride 101 (98-107) mmol/L Carbon Dioxide 28.7 (21.0-32.0) mmol/L Anion Gap 11.3 BUN 12.0 (7.0-18.0) mg/dL Creatinine 0.88 (0.55-1.02) mg/dL Est GFR ( Amer) >60 (>=60) Est GFR (Non-Af Amer) >60 (>=60) BUN/Creatinine Ratio 13.6 Glucose 108 H (74-106) mg/dL Calcium 8.7 (8.5-10.1) mg/dL Troponin I High Sens 13.6 (4.0-51.3) pg/mL Adenovirus (PCR) Not detected (NOT DETECTE) C. pneumoniae DNA (PCR) Not detected (NOT DETECTE) Coronavirus Type OC43 Not detected (NOT DETECTE) Coronavirus Type HKU1 Not detected (NOT DETECTE) Coronavirus Type 229E Not detected (NOT DETECTE) Coronavirus Type NL63 Not detected (NOT DETECTE) Human Metapneumovir PCR Not detected (NOT DETECTE) Influenza A (H3) PCR Detected M. pneumoniae (PCR) Not detected (NOT DETECTE) Parainfluenza PCR Not detected (NOT DETECTE) Parainfluenza 2 (PCR) Not detected (NOT DETECTE) Parainfluenza 3 (PCR) Not detected (NOT DETECTE) Parainfluenza 4 (PCR) Not detected (NOT DETECTE) RSV (RT-PCR) Not detected (NOT DETECTE) Entero/Rhino (PCR) Not detected (NOT DETECTE) SARS-CoV-2 (PCR) Not detected (NOT DETECTE) Bordetella pertussis (PCR) Not detected (NOT DETECTE) B parapertussis DNA PCR Not detected (NOT DETECTE) Influenza Type B (PCR) Not detected (NOT DETECTE) Imaging Data Chest x-ray: Radiologist's impression: ITS Impressions Chest X-Ray 04/02/23 02:43 IMPRESSION: 1. Airspace opacities in the medial lungs could represent aspiration changes and/or pneumonia. Electronically authenticated by: Karol HUERTA Date: 04/02/2023 03:36 Discharge Plan Discharge Chief Complaint: Upper Respiratory Infection Clinical Impression: Community acquired bacterial pneumonia, Influenza Prescriptions / Home Meds: No Action atenolol 50 mg tablet 50 mg PO BID dexlansoprazole 30 mg capsule,biphase delayed releas 30 mg PO QAM gabapentin 300 mg capsule 300 mg PO BID lorazepam 0.5 mg tablet 0.5 mg PO QID PRN (Reason: anxiety) mirtazapine 30 mg tablet 30 mg PO QPM oxycodone 10 mg tablet 10 mg PO Q6H PRN (Reason: pain) Xarelto 10 mg tablet 10 mg PO DAILY trazodone 100 mg tablet 100 mg PO QPM PRN (Reason: sleep) azelastine 137 mcg (0.1 %) aerosol,spray 1 spray INTRANASAL BID fluticasone furoate-vilanterol [Breo Ellipta] 100-25 mcg/dose blister with device 1 inh INHALATION QAM Referrals: Physician,Non-Staff, MD [Primary Care Provider] - 1 week
[2023-04-02] MEDS: CEFTRIAXONE 1,000 MG in 0.9 % SODIUM CHLORIDE 50 ML 100 MG IV ×2 (04:10→17:26)
[2023-04-02] MEDS: 0.9 % SODIUM CHLORIDE 1,000 ML 999 ML IV (04:30)
[2023-04-02 04:35] LABS: Alanine Aminotransferase 70 U/L (14-59); Albumin Globulin Ratio 0.8; Albumin Level 3.4 g/dL (3.4-5.0); Alkaline Phosphatase 66 U/L (46-116); Aspartate Amino Transferase 55 U/L (15-37); Bilirubin Direct 0.1 mg/dL (0.0-0.2); Bilirubin Total 0.3 mg/dL (0.2-1.0); Globulin 4.2 g/dL; Total Protein 7.6 g/dL (6.4-8.2)
[2023-04-02 04:38] LABS: Lactate/Lactic Acid 1.4 mmol/L (0.4-2.0)
[2023-04-02 04:47] LABS: Bilirubin Urine NEGATIVE (NEGATIVE); Blood Urine NEGATIVE (NEGATIVE); Clarity Urine CLEAR (CLEAR); Color Urine LT. YELLOW (YELLOW); Glucose Urine UA NEGATIVE (NEGATIVE); Ketones Urine NEGATIVE (NEGATIVE); Leukocyte Esterase Urine SMALL (NEGATIVE); Nitrite Urine NEGATIVE (NEGATIVE); Protein Urine NEGATIVE (NEG/TRACE); Urobilinogen Urine 0.2 EU/dL (0.2-1.0)
[2023-04-02 04:48] LABS: Urine Microscopic Indicated YES
[2023-04-02] MEDS: AZITHROMYCIN 500 MG in 0.9 % SODIUM CHLORIDE 250 ML 250 MG IV (04:49)
[2023-04-02 04:54] LABS: Bacteria Urine NONE SEEN #/HPF (NONE SEEN); Cast Seen? NONE SEEN #/LPF (NONE SEEN); Crystals Seen? None Seen #/HPF (None Seen); Mucus Urine NONE SEEN (NONE SEEN); RBC Urine 0-2 #/HPF (0-2); Squamous Epithelial Cell Urine FEW #/LPF (NONE/RARE)
[2023-04-02 05:09] LABS: PROCALCITONIN 0.17 ng/mL (0.00-0.50)
[2023-04-02] MEDS: ONDANSETRON PF 4 MG/2 ML VIAL IV (05:39)
[2023-04-02] MEDS: 0.9 % SODIUM CHLORIDE 1,000 ML 1000 ML IV (06:25)
[2023-04-02 06:29] LABS: Lactate/Lactic Acid 0.8 mmol/L (0.4-2.0)
[2023-04-02] MEDS: ACETAMINOPHEN 500 MG TABLET 1000 MG PO (06:42)
--- OUTSIDE RECORDS SUMMARY | 2023-04-02 07:53 | XMS_ITS | CCD ---
Author Name Unknown Address [address] [place] [address] Organization [facility] Care Team Providers Care Technical Support Representative Name Role Phone Mary RODRIGUEZ, Abdo Unavailable Genna RODRIGUEZ, Jose A Primary Care Provider Marilyn Hughes RN Unavailable Mary RODRIGUEZ, Abdo Unavailable Juan R WALL, Kristina Unavailable Unavailable Emely MARINE ENGINE MACHINIST APPRENTICE.Juan Francisco VASQUEZ Unavailable Kylie Johnson Unavailable Mary RODRIGUEZ, Abdo Unavailable Genna RODRIGUEZ, Jose A Primary Care Provider Marilyn Hughes RN Unavailable Mary RODRIGUEZ, Abdo Unavailable Juan R WALL, Kristina Unavailable Unavailable Emely MARINE ENGINE MACHINIST APPRENTICE.Juan Francisco VASQUEZ Unavailable Kylie Mosher RN Unavailable Unavail able Genna RODRIGUEZ, Jose A Primary Care Provider Mary RODRIGUEZ, Abdo Unavailable Genna RODRIGUEZ, Jose A Primary Care Provider Marilyn Hughes RN Unavailable Mary RODRIGUEZ, Abdo Unavailable Juan R WALL, Kristina Unavailable Unavailable Emely MARINE ENGINE MACHINIST APPRENTICE.Juan Francisco VASQUEZ Unavailable Kylie Mosher RN Unavailable Unavail able DR MARIELENA CHAVIRA Primary Care Unavailable IGLESIA BLAKELY Admitting Unavailable IGLESIA BLAKELY Attending Unavailable LULU BLAKELYYL Consulting Unavailable CONG ALMANZAR Consulting Unavailable [facility] [place] Primary Care Unavailable PAY ., DR PARHAM Admitting Unavailable PAY ., DR PARHAM Attending Unavailable BITA ., ZAIRA Consulting Unavailable Emely MARINE ENGINE MACHINIST APPRENTICE.RECOVERY AUDITOR, Juan Francisco Unavailable Juan R WALL, Kristina Unavailable Unavailable Emely MARINE ENGINE MACHINIST APPRENTICE.RECOVERY AUDITOR, Juan Francisco Unavailable [phone] Nomi WALL, Kylie Patel Unavailable Unavail able [...] Genna RODRIGUEZ Jose A Primary Care Provider Darien RODRIGUEZ, Alexsander Pacheco Unavailable [place] MARINE ENGINE MACHINIST APPRENTICE.RECOVERY AUDITOR, Linette Unavailable Krishna MARINE ENGINE MACHINIST APPRENTICE.RECOVERY AUDITOR, Linette Unavailable Alex GODWIN, Fabiana Unavailable Unavailable Keke Bright Attending Unavailable Keke Bright Admitting Unavailable Vail, Jose A Primary Care Unavailable VAIL, JOSE A Primary Care Unavailable ROCIO, ELLA Referring Unavailable VIAL, JOSE A Primary Care Unavailable ROCIO, ELLA [...] A Referring Unavailable Jose Vail MD Unavailable Jose Vail MD Primary Care Provider Allergies Allergy Classification Reported Allergen(s) Allergy Type Date of Onset Reaction(s) Facility (20 sources) Chlorhexidine; 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: [CHLORHEXIDINE] Drug Allergy 4 Itching, Unknown [facility] Work Phone: (20 sources) Sulfonamides (Antibiotic); 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: [SULFA (SULFONAMIDE ANTIBIOTICS)] Drug Allergy 2 Rash, Unknown [facility] Work Phone: (2 sources) Sulfacetamide / Sulfur Drug Allergy rash [facility] Other (1 source) Sulfonamides (Antibiotic) Drug allergy (disorder) [facility] Repository (1 source) Sulfacetamide Drug Allergy [address] [place] [address] Repository (1 source) Sulfur Drug Allergy [address] [place] [address] Repository Medications Current Medications Medication Drug Class(es) [...] twice daily for 7 days. bifidobacterium animalis [id number] unt / lactobacillus acidophilus [id number] unt oral capsule (2 sources) Start: 10-03-2021 [...] on above: Take 1 capsule by mo [facility] twice daily for 90 days. traZODone hydrochloride 100 mg oral tablet (20 sources) Serotonin Reuptake Inhibitor Start: 023 traZODone (Desyrel) 100 MG tablet Indications: Insomnia, unspecified type Take 1 tablet (100 mg) by mouth as needed at bedtime for sleep 90 tablet 3 02/04/2023 Active take 2 tablets by mo [facility] once daily at bedtime traZODone (DESYREL) 50 [...] 1 tablet by jaleesa twice a day [id number] 200 actuat albuterol 0.09 mg/actuat metered dose [...] daily azelastine 0.1% nasal spray Use 1 [place] in each nostril two times a day. 30 mL 0 03/28/2023 Active Comment on above: Use 1 [place] in each nostril two times a day. [...] once daily. Take 1 capsule by mo [facility] twice daily for 7 days. Take 1 [...] on above: Take 1 capsule by mo [facility] once daily. fluocinonide 0.5 mg/ml topical cream [...] needed take 1 tablet by jaleesa th four times a day if needed [...] Comment on above: Take 2 tablets by [facility] once daily. 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 , Nodular [...] C No.3 (B COMPLEX PLUS VITAMIN C) 90-13-48-5-300 mg cap (20 sources) Start: 08-11-2019 Vitamin B Comp and C No.3 (B COMPLEX PLUS VITAMIN C) 18-84-68-5-300 mg cap Take 1 tablet by mouth [...] care] Episodic Other aftercare (1 source) Other correction (current) drug therapy; 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: [OTH GROUP HOME CURRENT DRUG THERAPY] Onset: 3 Episodic Other [...] aftercare (14 sources) Drug therapy finding; 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: [longterm (current) use of opiate analgesic] Onset: 12-20-2022 Episodic Other aftercare (1 source) longterm (current) use of anticoagulants; 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: [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 ANTICOAGULANTS] Onset: 07-26-2021 Episodic Other aftercare (1 source) 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; 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: [Opioid [...] Reference Range Facility NITRIC OXIDE, EXHALEDon 02-0 [facility] Urinalysis - AUTOMATEDon Appearance (U) clear Move In History Other Bilirubin Ql (U) Negative Diger[facility] Other Color (U) bright yellow [facility] Other Glucose Ql (U) Negative Move In History Other Hemoglobin Ql (U) Negative [employer] Other Ketones Ql (U) Negative Move In History Other Leukocyte esterase Test strip Ql (U) trace [facility] Other Nitrite Ql (U) Negative Move In History Other pH (U) 6.0 [pH] [facility] Other Protein Ql (U) Negative Move In History Other Specific gravity (U) [Rel density] 1.010 [facility] Other Urobilinogen (U) [Mass/Vol] 0.2 mg/dL [facility] Other Urinalysis - AUTOMATED [facility] Other Urine Cultureon 01-29-2023 Bacteria identified Cx Nom (U) Reason for Exam Dysuria Urine Reason for Exam: Dysuria : Urine ORGANISM: Escherichia coli (O:ESCCOL) [place] Count >100,000 Aerobic RICARDO Charge (NMIC56) -- [...] RESISTANT TO ALL B-LACTAM DRUGS. PERFORMED BY: [place] [address] PATHOLOGIST AGENCY SERVICE COORDINATOR MARGARITA HAYWOOD M.D. Normal [facility] Comment on above: Performed By: #### C UU #### [address] CORTISOL BLDon 01-02-2023 Cortisol [Mass/Vol] 1.6 ug/dL Low 4.8 - 19 .5 ug/dL [facility] ESR Westergren method (Bld) [Velocity]on 01-02-2023 ESR (Bld) [Velocity] 2 mm/h 0 - 20 mm/hr [facility] T4/FTI/T4Uon 01-02-2023 FTI 7.5 ug/dL 5.3 - 10.8 ug/dL [facility] T4 [Mass/Vol] 7.6 ug/dL 5.5 - 10.2 ug/dL [facility] T4 uptake [Mass/Vol] 1.01 0.91 - 1.19 [facility] TSH BLDon 01-02-2023 TSH Qn 1.820 m[IU]/L 0.270 - 4.200 mIU/L [facility] CBC W Auto Differential pane l (Bld)on 01-01-2023 Basophils (Bld) [#/Vol] <0.11 k/uL [facility] Basophils/100 WBC (Bld) 0.2 % [facility] Differential cell count method Nom (Bld) Auto [facility] Eosinophils (Bld) [#/Vol] 0.21 10*3/uL <0.46 k/uL [facility] Eosinophils/100 WBC (Bld) 2.6 % [facility] Erythrocyte distribution width (RBC) [Ratio] 13.8 % 11.5 - 15.0 % [facility] Hematocrit (Bld) [Volume fraction] 44.6 % 36.0 - 46.0 % [facility] Hemoglobin (Bld) [Mass/Vol] 14.6 g/dL 11.5 - 15.5 g/dL [facility] Immature granulocytes (Bld) [#/Vol] 0.08 10*3/uL <0.10 k/uL [facility] Immature granulocytes/100 WBC (Bld) 1.0 % [facility] Lymphocytes (Bld) [#/Vol] 2.56 10*3/uL 1.00 - 4.00 k/uL [facility] Lymphocytes/100 WBC (Bld) 32.0 % [facility] MCH (RBC) [Entitic mass] 31.1 pg 26.0 - 34.0 pg [facility] MCHC (RBC) [Mass/Vol] 32.7 g/dL 30.5 - 36.0 g/dL [facility] MCV (RBC) [Entitic vol] 94.9 fL 80.0 - 100.0 fL [facility] Monocytes (Bld) [#/Vol] 0.62 10*3/uL <0.87 k/uL [facility] Monocytes/100 WBC (Bld) 7.7 % [facility] Neutrophils (Bld) [#/Vol] 4.52 10*3/uL 1.45 - 7.50 k/uL [facility] Neutrophils/100 WBC (Bld) 56.5 % [facility] Nucleated RBC (Bld) [#/Vol] <0.01 k/uL [facility] Nucleated RBC/100 WBC (Bld) [Ratio] 0.0 /100 WBC [facility] Platelet mean volume (Bld) [Entitic vol] 9.0 fL 9.0 - 12.7 fL [facility] Platelets (Bld) [#/Vol] 320 10*3/uL 150 - 400 k/uL [facility] RBC (Bld) [#/Vol] 4.70 10*6/uL 3.90 - 5.2 0 m/uL [facility] WBC (Bld) [#/Vol] 8.01 10*3/uL 3.70 - 11. 00 k/uL [facility] Comprehensive metabolic 2000 panelon 01-01-2023 Albumin [Mass/Vol] 4.5 g/dL 3.9 - 4.9 g/dL [facility] ALP [Catalytic activity/Vol] 93 U/L 34 - 123 U/L [facility] ALT [Catalytic activity/Vol] 49 U/L High 7 - 38 U/L [facility] Anion gap [Moles/Vol] 9 mmol/L 9 - 18 mmol/L [facility] AST [Catalytic activity/Vol] 38 U/L High 13 - 35 U/L [facility] Bilirubin [Mass/Vol] 0.2 mg/dL 0.2 - 1.3 mg/dL [facility] Calcium [Mass/Vol] 9.6 mg/dL 8.5 - 10. 2 mg/dL [facility] Chloride [Moles/Vol] 102 mmol/L 97 - 105 mmol/L [facility] CO2 [Moles/Vol] 28 mmol/L 22 - 30 mmol/L [facility] Creatinine [Mass/Vol] 0.68 mg/dL 0.58 - 0.96 mg/dL [facility] Estimated Glomerular Filtration Rate 113 mL/min/1.73m >=60 mL/min/1.73m [facility] Glucose [Mass/Vol] 102 mg/dL High 74 - 99 mg/dL [facility] Potassium [Moles/Vol] 4.4 mmol/L 3.7 - 5.1 mmol/L [facility] Protein [Mass/Vol] 7.3 g/dL 6.3 - 8.0 g/dL [facility] Sodium [Moles/Vol] 139 mmol/L 136 - 144 mmol/L [facility] Urea nitrogen [Mass/Vol] 9 mg/dL 7 - 21 mg/dL [facility] LD LACTATE DEHYDROon 023 LDH [Catalytic activity/Vol] 283 U/L High 135 - 214 U/L [facility] MAGNESIUM BLDon 01-01-2023 Magnesium [Mass/Vol] 2.5 mg/dL High 1.7 - 2.3 mg/dL [facility] CNOVon 12-20-2022 CNOV Office Visit ([facility] ) CELSO POTTS ([id number]) 1980 F Date Time Provider Department 12/20/22 [...] not follow up as it was in [place] and not close to her home. Keeps well hydrated because dehydration has always made these symptoms worse. She is taking gabapentin 600 mg TID. Also taking oxycodone 10 mg 3-4 times per day Denies confusion, oversedation, myoclonus, constipation Fatigued but does not sleep during the day Going out with friends and keeping busy as much as she can Modified ESAS (Buckhorn Symptom Assessment Scale) Information Provided By: Patient [...] modalities? Yes (more content not included)... [facility] ([facility]) CELSO POTTS ([id number]) 1980 F Date Time Provider Department 10/18/22 10:30 AM [facility] During your visit today, we recorded the [...] for comfort Referring Provider: JUAN FRANCISCO HUTCHINSON [[id number]] Allergies As of Date: 10/18/2022 Noted Allergy Reaction CHLORHEXIDINE 03/11/2013 9 - Itching Comments: Severe skin irritation. Had used for central line care SULFA (SULFONAMIDE ANTIBIOTICS) 01/07/2012 2 - Rash Date Reviewed: 10/18/2022 Reviewed by: Juan Francisco Hutchinson APRN.RECOVERY AUDITOR - Fully Assessed Reason for Visit: LESION, [...] C No.3 (B COMPLEX PLUS VITAMIN C) 69-52-67-5-300 mg cap Take 1 tablet by mouth once daily. - Dexlansoprazol (more content not included)... Normal [facility] CNOVon 10-18-2022 CNOV Office Visit ([facility] ) CELSO POTTS ([id number]) 1980 F Date Time Provider Department 10/18/22 11:30 AM [facility] During your visit today, we recorded the following information about you: Temperature Pulse Blood pressure Weight 98.2 degrees 96/minute 116/81 102 kg Juan Francisco Hutchinson, MARINE ENGINE MACHINIST APPRENTICE.RECOVERY AUDITOR 10/18/2022 3:27 PM Signed PALLIATIVE MEDICINE PROGRESS [...] Denies confusion, oversedation, myoclonus, constipation. Modified ESAS (Buckhorn Symptom Assessment Scale) Information Provided By: Patient [...] 10/18/2022 by (more content not included)... [facility] CELSO POTTS ([id number]) 1980 F Date Time Provider Department 10/18/22 KYLIE MOSHER [facility] During your visit today, we recorded the following information about you: Kylie Mosher RN 10/18/2022 3:19 PM Addendum Prior Authorization Documentation Prior authorization requested via Coverg. v. ([facility] for the following medication: Medication: Lyrica 100 mg capsules Approved and authorizes your coverage from 02/18/2022 - 02/17/2023, Insurance Company Name: [employer] Phone number: [phone] Patient ID number: [id number] Osorio [id number] Pharmacy Name: [facility] Telephone number: [phone] Kylie Mosher RN October 18, 2022 1:38 PM Allergies As of Date: 10/18/2022 Noted Allergy Reaction CHLORHEXIDINE 03/11/2013 9 - Itching Comments: Severe skin irritation. Had used for central line care SULFA (SULFONAMIDE ANTIBIOTICS) 01/07/2012 2 - Rash Date Reviewed: 10/18/2022 Reviewed by: Juan Francisco Hutchinson APRN.RECOVERY AUDITOR - Fully Assessed Reason for Visit: Insurance [...] C No.3 (B COMPLEX PLUS VITAMIN C) 42-33-62-5-300 mg cap Take 1 tablet by mouth [...] Insomnia [G47.00] (more content not included)... Normal [facility] CNOVon 09-13-2022 CNOV Office Visit (PULMAV ) CELSO POTTS ([id number]) 1980 F Date Time Provider Department 09/13/22 [...] PFT: SPIROMETRY - BASELINE AND POST DILATOR ([id number]) - ordered on 11/03/19 [facility] [id number] [facility] [place] [address] Test Date: 2019-11-03 Pat Name: CELSO POTTS Department: Room: Gender: Female Door Assembler: Perla Baker DOB: 1980 Requested By: Order Number: [id number] Reading MD: Justin Moreno Interpretive Statements PRE [...] 38 .4 FIVC L 2.35 2.35 0.0 CKX30-14% L/s 2.36 2.36 3. (more content not included)... Normal [facility] CNOVSPon 08-22-2022 CNOVS Visit (SP) Office (HEMAVN) DORCASCELSO ROONEY ([id number]) 1980 F Date Time Provider Department 08/22/22 [...] pneumonitis She saw Dr. Alejandro sarmiento at [facility] for 2nd opinion cell([id number]) She agreed with out plan and recommended [...] FAMILY HISTORY (more content not included)... Normal [facility] PET/CT SKULL-THIGH SUBQon 08-14-2022 [place] PET/CT [...] any questions regarding this interpretation, please call [phone]. If you are unable to reach us at the number above, please feel free to contact [facility] eRadiology at [phone]. [id number] Normal [facility]02[facility]20[facility] CELSO POTTS ([id number]) 1980 F Date Time Provider Department 08/02/22 ELLA CHAN During your visit today, we recorded the following information about you: Ella Chan APRN.RECOVERY AUDITOR 08/02/2022 5:06 PM Signed Discussed patient's recent [...] [R05.3] Order(s):SPIROMETRY - BASELINE AND POST DILATOR [6550818] Order #: [id number]: 1 FUTURE LUNG DIFFUSION CAPACITY (DLCO) [[id number]] Order #: [id number]: 1 FUTURE NITRIC OXIDE, EXHALED [[id number]] Order #: [id number]: 1 FUTURE Prescriptions as of 08/05/2022 - [...] C No.3 (B COMPLEX PLUS VITAMIN C) 85-49-53-5-300 mg cap Take 1 tablet by mouth [...] NaCl (PF (more content not included)... Normal [facility] CNOVon 08-01-2022 CNOV Office Visit (PULMLO ) CELSO POTTS ([id number]) 1980 F Date Time Provider Department 08/01/22 [...] or chills. Electronically signed by Ella Chan APRN.[facility] Respiratory [place] July 31, 2022 HPI: Celso Potts [...] with antibio (more content not included)... Normal [facility] CNOVon 07-31-2022 CNOV Office Visit ([facility] ) CELSO POTTS ([id number]) 1980 F Date Time Provider Department 07/31/22 11:00 AM NOVA BRIDGES During your visit today, we recorded the following information about you: Nova Bridges APRN.RECOVERY AUDITOR 07/31/2022 11:32 AM Signed SKIN EXAM ESTABLISHED [...] C No.3 (B COMPLEX PLUS VITAMIN C) 78-40-72-5-300 mg cap Take 1 tablet by mouth [...] sinus trac (more content not included)... Normal [facility]on 07-19-2022 [facility]EL[facility] POT[facility] ([id number]) 1980 F Date Time Provider Department 07/19/22 10:30 AM [facility] During your visit today, we recorded [...] bilateral lung rodriguez. Finished steroids and antibiotics. Brandt very good after this but then as [...] relaxants. Denies confusion, oversedation, myoclonus. Modified ESAS (Buckhorn Symptom Assessment Scale) Information Provided By: Patient [...] drug relat (more content not included)... Normal [facility] CNOVSPon 07-18-2022 CNOVSP Visit (SP) Office (HEMAVN) DELROYCELSO Junior ([id number]) 1980 F Date Time Provider Department 07/18/22 [...] pneumonitis She saw Dr. Alejandro sarmiento at [facility] for 2nd opinion cell([id number]) She agreed with out plan and recommended [...] the spleen, liver and lymph node at [facility] PET showed progression early 2022March 2019 [...] incidentally fo (more content not included)... Normal [facility] CT CHEST WO IVCONon 07-18-19 CT CHEST WO IVCON * * *Final Report* * * DATE OF EXAM: Jul 17 2022 1:18PM [facility] 0541 - CT CHEST WO IVCON / [...] fatty infiltration. No evidence of adrenal mass.. Spindle Setter (topogram) images: No additional findings. IMPRESSION: 1. [...] Postradiation changes in the bilateral lung rodriguez. Director Ehs: DEDE Transcribe Date/Time: Jul 18 2022 8:19A Dictated by : YOGESH DAVIS MD This examination was interpreted and the report reviewed and electronically signed by: YOGESH DAVIS MD on Jul 18 2022 8:58AM EST [id number] Normal [facility] CBC AUTO DIFFon 06-21-2022 BASO # 0.0 103/ul Normal 0.0-0.1 [facility] Comment on above: Performed By: #### C BC #### [facility] [address] [place] [address] Dr. Kristina Morales Basophils/100 WBC (Bld) 0.4 % Normal 0.2-2.0 [facility] Comment on above: Performed By: #### C BC #### [facility] [address] [place] [address] Dr. Kristina Morales EO # 0.2 103/ul Normal 0.0-0.7 [facility] Comment on above: Performed By: #### C BC #### [facility] [address] [place] [address] Dr. Kristina Morales Eosinophils/100 WBC (Bld) 2.9 % Normal 0.9-7.0 [facility] Comment on above: Performed By: #### C BC #### [facility] [address] [place] [address] Dr. Kristina Morales Erythrocyte distribution width (RBC) [Ratio] 13.7 % Normal 11.0-15.0 [facility] Comment on above: Performed By: #### C BC #### [facility] [address] [place] [address] Dr. Kristina Morales Hematocrit (Bld) [Volume fraction] 44.2 % Normal 36.0-48.0 [facility] Comment on above: Performed By: #### C BC #### [facility] [address] [place] [address] Dr. Kristina Morales Hemoglobin (Bld) [Mass/Vol] 14.9 g/dL Normal 12.0-16.0 [facility] Comment on above: Performed By: #### C BC #### [facility] [address] [place] [address] Dr. Kristina Morales IG # 0.02 10e3/ul Normal 0.00-0.03 [facility] Comment on above: Performed By: #### C BC #### [facility] [address] [place] [address] Dr. Kristina Morales IG % 0.3 % Normal 0.0-0.5 [facility] Comment on above: Performed By: #### C BC #### [facility] [address] [place] [address] Dr. Kristina Morales LYMPH # 2.0 103/ul Normal 1.2-3.8 [facility] Comment on above: Performed By: #### C BC #### [facility] [address] [place] [address] Dr. Kristina Morales Lymphocytes/100 WBC (Bld) 27.8 % Normal 20.5-60.0 [facility] Comment on above: Performed By: #### C BC #### [facility] [address] [place] [address] Dr. Kristina Morales MANUAL DIFF REQ NO Normal [facility] Comment on above: Performed By: #### C BC #### [facility] [address] [place] [address] Dr. Kristina Morales MCH (RBC) [Entitic mass] 32.0 pg Normal 26.7-34.0 [facility] Comment on above: Performed By: #### C BC #### [facility] [address] [address] [address] Kristina Morales MCHC (RBC) [Mass/Vol] 33.7 g/dL Normal 29.9-35.2 [facility] Comment on above: Performed By: #### C BC #### [facility] [address] [address] [address] Kristina Morales MCV (RBC) [Entitic vol] 94.8 fL Normal 81.0-99.0 [facility] Comment on above: Performed By: #### C BC #### [facility] [address] [place] [address] Dr. Kristina Morales MONO # 0.7 103/ul Normal 0.3-0.8 [facility] Comment on above: Performed By: #### C BC #### [facility] [address] [place] [address] Dr. Kristina Morales Monocytes/100 WBC (Bld) 9.5 % Normal 1.7-12.0 [facility] Comment on above: Performed By: #### C BC #### [facility] [address] [place] [address] Dr. Kristina Morales NEUT # 4.2 103/ul Normal 1.4-6.5 [facility] Comment on above: Performed By: #### C BC #### [facility] [address] [place] [address] Dr. Kristina Morales Neutrophils/100 WBC (Bld) 59.1 % Normal 43.0-75.0 [facility] Comment on above: Performed By: #### C BC #### [facility] [address] [place] [address] Dr. Kristina Morales Platelet mean volume (Bld) [Entitic vol] 9.1 fL Critically low 9.5-13.5 [facility] Comment on above: Performed By: #### C BC #### [facility] [address] [place] [address] Dr. Kristina Morales PLT 302 103/ul Normal 150-450 [facility] Comment on above: Performed By: #### C BC #### [facility] [address] [address] [address] Kristina Morales RBC 4.66 106/ul Normal 4.20-5.40 [facility] Comment on above: Performed By: #### C BC #### [facility] [address] [address] [address] Kristina Morales WBC 7.2 103/ul Normal 4.0-11.0 [facility] Comment on above: Performed By: #### C BC #### [facility] [address] [address] [address] Kristina Morales CRPon 06-21-2022 CRP 2.2 mg/dL Critically high <=1.0 [facility] Comment on above: Performed By: #### C RP, BMP #### [facility] [address] [place] [address] HEAD WO CONon [...] CONG SAID Date: 2022-06-21 05:34 Normal [facility] [facility] PROF CHEM 8 (BAS METB)on Anion gap [Moles/Vol] 11.9 mmol/L Normal [facility] Comment on above: Performed By: #### C RP, BMP #### [facility] [address] [address] [address] Kristina Morales Calcium [Mass/Vol] 9.5 mg/dL Normal 8.5-10.1 [facility] Comment on above: Performed By: #### C RP, BMP #### [facility] [address] [address] [address] Kristina Morales Chloride [Moles/Vol] 106 mmol/L Normal 98-107 [facility] Comment on above: Performed By: #### C RP, BMP #### [facility] [address] [address] [address] Kristina Morales CO2 [Moles/Vol] 26.7 mmol/L Normal 21.0-32.0 [facility] Comment on above: Performed By: #### C RP, BMP #### [facility] [address] [address] [address] Kristina Morales Creatinine [Mass/Vol] 0.91 mg/dL Normal 0.55-1.02 [facility] Comment on above: Performed By: #### C RP, BMP #### [facility] [address] [place] [address] Dr. Kristina Morales EGFR-AF FIJIAN >60 Normal >=60 [facility] Comment on above: Performed By: #### C RP, BMP #### [facility] [address] [place] [address] Dr. Kristina Morales EGFR-NON AF FIJIAN >60 Normal >=60 [facility] Comment on above: Performed By: #### C RP, BMP #### [facility] [address] [place] [address] Dr. Kristina Morales Glucose [Mass/Vol] 118 mg/dL Critically high 74-106 [facility] Comment on above: Performed By: #### C RP, BMP #### [facility] [address] [place] [address] Dr. Kristina Morales Potassium [Moles/Vol] 3.6 mmol/L Normal 3.5-5.1 [facility] Comment on above: Performed By: #### C RP, BMP #### [facility] [address] [address] [address] Kristina Morales Sodium [Moles/Vol] 141 mmol/L Normal 136-145 [facility] Comment on above: Performed By: #### C RP, BMP #### [facility] [address] [address] [address] Kristina Morales Urea nitrogen [Mass/Vol] 17.0 mg/dL Normal 7.0-18.0 [facility] Comment on above: Performed By: #### C RP, BMP #### [facility] [address] [address] [address] Kristina Morales Urea nitrogen/Creatinine [Mass ratio] 18.7 mg/mg Normal [facility] Comment on above: Performed By: #### C RP, BMP #### [facility] [address] [address] [address] [facility] CNPN Telephone (PULMLO) CELSO POTTS ([id number]) 1980 F TRN Date Time Provider Department 06/13/22 ELLA CHAN During your visit today, we recorded the following information about you: HILARY Dougherty 06/13/2022 1:19 PM Signed Celso Potts called today. : 1980 Allergies: Chlorhexidine and Sulfa (Sulfonamide Antibiotics) (home) [phone] (cell) Reason for call: Patient states that at the last office visit 06/04/22 the provider was going to call in [facility]. She states it was not called in . Please advise. e- [id number] [place] [address] - [address] [facility] - [phone] [address] [facility] [address] Patient last appointment: 06/04/2022 The patients preferred pharmacy has been captured for this encounter? yes Marilyn Hughes, PSS Mitzi Hutchinson MA 06/13/2022 1:32 PM Signed Called pharmacy on dial to verify they have medication in stock and I spoke with pharmacy services representative [place] who states they have 1 box [...] - Rash Date Reviewed: 06/04/2022 Reviewed by: Elal Chan APRN.RECOVERY AUDITOR - Fully Assessed Reason for Visit: New [...] C No.3 (B COMPLEX PLUS VITAMIN C) 50-93-99-5-300 mg cap Take 1 tablet by mouth [...] sodium ch (more content not included)... Normal [facility] CNOVon 06-04-2022 CNOV Office Visit (PULMLO ) CELSO POTTS ([id number]) 1980 F TRN Date Time Provider Department 06/04/22 9:30 AM ELLA CHAN During your visit today, we recorded the following information about you: Temperature Pulse Blood pressure Weight 97.1 degrees 100/minute 126/89 108.4 kg Height 1.81 m Ella Chan APRN.RECOVERY AUDITOR 06/05/2022 1:06 PM Signed [facility] Date: June 04, 2022 9:21 AM Name: Celso Potts : 1980 CC: follow up for dyspnea Celso oPtts is a 41 year old female with [...] or chills. Electronically signed by Ella Chan APRN.[facility] Respiratory [place] June 04, 2022 HPI: Celso Potts [...] benadryl, Abiola (more content not included)... Normal [facility] CT CHEST WO IVCONon 06-01-19 CT CHEST WO IVCON * * *Final Report* * * DATE OF EXAM: May 31 2022 8:04AM [facility] 0541 - CT CHEST WO IVCON [...] abnormalities. Upper abdomen: Diffuse hepatic fatty infiltration. Spindle Setter (topogram) images: No additional findings. IMPRESSION: 1. [...] any questions regarding this interpretation, please call [phone]. If you are unable to reach us at the number above, please feel free to contact [facility] eRadiology at [phone]. [id number] Normal [facility] CNOVSPon 05-22-2022 CNOVSP Visit (SP) Office (HEMAVN) CELSO POTTS ([id number]) 1980 F TRN Date Time Provider Department [...] pneumonitis She saw Dr. Alejandro sarmiento at [facility] for 2nd opinion cell([id number]) She agreed with out plan and recommended [...] (May 27, (more content not included)... Normal [facility] CBC W Auto Differential pane l (Bld)on 05-14-2022 Basophils (Bld) [#/Vol] 0.04 10*3/uL Normal <0.11 [facility] Comment on above: Order Comment: Speci men Type: BLOOD SPECIMENOrdering Facility: [facility] Address: [address] [place] [address] Performed By: #### 5 7021-8 ####[facility] LABCLIA [id number] [place] [address] Basophils/100 WBC (Bld) 0.5 % Normal [facility] Comment on above: Order Comment: Speci malu Type: BLOOD SPECIMENOrdering Facility: [facility] Address: [address] [place] [address] Performed By: #### 5 7021-8 ####[facility] LABCLIA [id number] [place] [address] Differential cell count method Nom (Bld) Auto Normal [facility] Comment on above: Order Comment: Speci men Type: BLOOD SPECIMENOrdering Facility: [facility] Address: [address] [place] [address] Performed By: #### 5 7021-8 ####[facility] LABCLIA [id number] [place] [address] Eosinophils (Bld) [#/Vol] 0.20 10*3/uL Normal <0.46 [facility] Comment on above: Order Comment: Speci men Type: BLOOD SPECIMENOrdering Facility: [facility] Address: [address] [place] [address] Performed By: #### 5 7021-8 ####[facility] LABCLIA [id number] [place] [address] Eosinophils/100 WBC (Bld) 2.4 % Normal [facility] Comment on above: Order Comment: Speci men Type: BLOOD SPECIMENOrdering Facility: [facility] Address: [address] [address] Performed By: #### 5 7021-8 ####[facility] LABCLIA [id number] [place] [address] Erythrocyte distribution width (RBC) [Ratio] 13.4 % Normal 11.5-15.0 [facility] Comment on above: Order Comment: Speci men Type: BLOOD SPECIMENOrdering Facility: [facility] Address: [address] [place] [address] Performed By: #### 5 7021-8 ####[facility] LABCLIA [id number] [place] [address] Hematocrit (Bld) [Volume fraction] 46.1 % High 36.0-46.0 [facility] Comment on above: Order Comment: Speci men Type: BLOOD SPECIMENOrdering Facility: [facility] Address: [address] [place] [address] Performed By: #### 5 7021-8 ####[facility] LABCLIA [id number] [place] [address] Hemoglobin (Bld) [Mass/Vol] 15.2 g/dL Normal 11.5-15.5 [facility] Comment on above: Order Comment: Speci men Type: BLOOD SPECIMENOrdering Facility: [facility] Address: [address] [place] [address] Performed By: #### 5 7021-8 ####[facility] LABCLIA [id number] [place] [address] Immature granulocytes (Bld) [#/Vol] 0.03 10*3/uL Normal <0.10 [facility] Comment on above: Order Comment: Speci men Type: BLOOD SPECIMENOrdering Facility: [facility] Address: [address] [place] [address] Performed By: #### 5 7021-8 ####[facility] LABCLIA [id number] [place] [address] Immature granulocytes/100 WBC (Bld) 0.4 % Normal [facility] Comment on above: Order Comment: Speci men Type: BLOOD SPECIMENOrdering Facility: [facility] Address: [address] [place] [address] Performed By: #### 5 7021-8 ####[facility] LABIA [id number] [place] [address] Lymphocytes (Bld) [#/Vol] 1.91 10*3/uL Normal 1.00-4.00 [facility] Comment on above: Order Comment: Speci men Type: BLOOD SPECIMENOrdering Facility: [facility] Address: [address] [place] [address] Performed By: #### 5 7021-8 ####[facility] LABIA [id number] [place] [address] Lymphocytes/100 WBC (Bld) 22.9 % Normal [facility] Comment on above: Order Comment: Speci men Type: BLOOD SPECIMENOrdering Facility: [facility] Address: [address] [place] [address] Performed By: #### 5 7021-8 ####[facility] LABIA [id number] [place] [address] MCH (RBC) [Entitic mass] 31.0 pg Normal 26.0-34.0 [facility] Comment on above: Order Comment: Speci men Type: BLOOD SPECIMENOrdering Facility: [facility] Address: [address] [address] Performed By: #### 5 7021-8 ####[facility] LABCLIA [id number] [place] [address] MCHC (RBC) [Mass/Vol] 33.0 g/dL Normal 30.5-36.0 [facility] Comment on above: Order Comment: Speci men Type: BLOOD SPECIMENOrdering Facility: [facility] Address: [address] [place] [address] Performed By: #### 5 7021-8 ####[facility] LABIA [id number] [place] [address] MCV (RBC) [Entitic vol] 93.9 fL Normal 80.0-100.0 [facility] Comment on above: Order Comment: Speci men Type: BLOOD SPECIMENOrdering Facility: [facility] Address: [address] [place] [address] Performed By: #### 5 7021-8 ####[facility] LABIA [id number] [place] [address] Monocytes (Bld) [#/Vol] 0.53 10*3/uL Normal <0.87 [facility] Comment on above: Order Comment: Speci men Type: BLOOD SPECIMENOrdering Facility: [facility] Address: [address] [place] [address] Performed By: #### 5 7021-8 ####[facility] LABCLIA [id number] [place] [address] Monocytes/100 WBC (Bld) 6.4 % Normal [facility] Comment on above: Order Comment: Speci men Type: BLOOD SPECIMENOrdering Facility: [facility] Address: [address] [place] [address] Performed By: #### 5 7021-8 ####[facility] LABIA [id number] [place] [address] Neutrophils (Bld) [#/Vol] 5.63 10*3/uL Normal 1.45-7.50 [facility] Comment on above: Order Comment: Speci men Type: BLOOD SPECIMENOrdering Facility: [facility] Address: [address] [place] [address] Performed By: #### 5 7021-8 ####[facility] LABCLIA [id number] [place] [address] Neutrophils/100 WBC (Bld) 67.4 % Normal [facility] Comment on above: Order Comment: Speci men Type: BLOOD SPECIMENOrdering Facility: [facility] Address: [address] [place] [address] Performed By: #### 5 7021-8 ####[facility] LABCLIA [id number] [place] [address] Nucleated RBC (Bld) [#/Vol] 10*3/uL Normal <0.01 [facility] Comment on above: Order Comment: Speci men Type: BLOOD SPECIMENOrdering Facility: [facility] Address: [address] [place] [address] Performed By: #### 5 7021-8 ####[facility] LABCLIA [id number] [place] [address] Nucleated RBC/100 WBC (Bld) [Ratio] 0.0 /100 WBC Normal [facility] Comment on above: Order Comment: Speci men Type: BLOOD SPECIMENOrdering Facility: [facility] Address: [address] [place] [address] Performed By: #### 5 7021-8 ####[facility] LABCLIA [id number] [place] [address] Platelet mean volume (Bld) [Entitic vol] 8.8 fL Low 9.0-12.7 [facility] Comment on above: Order Comment: Speci men Type: BLOOD SPECIMENOrdering Facility: [facility] Address: [address] [place] [address] Performed By: #### 5 7021-8 ####[facility] LABCLIA [id number] [place] [address] Platelets (Bld) [#/Vol] 315 10*3/uL Normal 150-400 [facility] Comment on above: Order Comment: Speci men Type: BLOOD SPECIMENOrdering Facility: [facility] Address: [address] [place] [address] Performed By: #### 5 7021-8 ####[facility] LABCLIA [id number] [place] [address] RBC (Bld) [#/Vol] 4.91 10*6/uL Normal 3.90-5.20 [facility] Comment on above: Order Comment: Speci men Type: BLOOD SPECIMENOrdering Facility: [facility] Address: [address] [place] [address] Performed By: #### 5 7021-8 ####[facility] LABIA [id number] [place] [address] WBC (Bld) [#/Vol] 8.34 10*3/uL Normal 3.70-11.00 [facility] Comment on above: Order Comment: Speci men Type: BLOOD SPECIMENOrdering Facility: [facility] Address: [address] [place] [address] Performed By: #### 5 7021-8 ####[facility] LABCLIA [id number] [place] [address] Comprehensive metabolic 2000 panelon 05-14-2022 Albumin [Mass/Vol] 4.5 g/dL Normal 3.9-4.9 [facility] Comment on above: Order Comment: Speci men Type: BLOOD SPECIMENOrdering Facility: [facility] Address: [address] [place] [address] Performed By: #### 2 4323-8 ####[facility] LABCLIA [id number] [place] [address] ALP [Catalytic activity/Vol] 93 U/L Normal 34-123 [facility] Comment on above: Order Comment: Speci men Type: BLOOD SPECIMENOrdering Facility: [facility] Address: [address] [place] [address] Performed By: #### 2 4323-8 ####[facility] LABCLIA [id number] [place] [address] ALT [Catalytic activity/Vol] 57 U/L High 7-38 [facility] Comment on above: Order Comment: Speci men Type: BLOOD SPECIMENOrdering Facility: [facility] Address: [address] [place] [address] Performed By: #### 2 4323-8 ####[facility] LABCLIA [id number] [place] [address] Anion gap [Moles/Vol] 12 mmol/L Normal 9-18 [facility] Comment on above: Order Comment: Speci men Type: BLOOD SPECIMENOrdering Facility: [facility] Address: [address] [place] [address] Performed By: #### 2 4323-8 ####[facility] LABCLIA [id number] [place] [address] AST [Catalytic activity/Vol] 42 U/L High 13-35 [facility] Comment on above: Order Comment: Speci men Type: BLOOD SPECIMENOrdering Facility: [facility] Address: [address] [address] Performed By: #### 2 4323-8 ####[facility] LABCLIA [id number] [place] [address] Bilirubin [Mass/Vol] 0.3 mg/dL Normal 0.2-1.3 [facility] Comment on above: Order Comment: Speci men Type: BLOOD SPECIMENOrdering Facility: [facility] Address: [address] [place] [address] Performed By: #### 2 4323-8 ####[facility] LABCLIA [id number] [place] [address] Calcium [Mass/Vol] 9.9 mg/dL Normal 8.5-10.2 [facility] Comment on above: Order Comment: Speci men Type: BLOOD SPECIMENOrdering Facility: [facility] Address: [address] [place] [address] Performed By: #### 2 4323-8 ####[facility] LABCLIA [id number] [place] [address] Chloride [Moles/Vol] 103 mmol/L Normal 97-105 [facility] Comment on above: Order Comment: Speci men Type: BLOOD SPECIMENOrdering Facility: [facility] Address: [address] [place] [address] Performed By: #### 2 4323-8 ####[facility] LABCLIA [id number] [place] [address] CO2 [Moles/Vol] 25 mmol/L Normal 22-30 [facility] Comment on above: Order Comment: Speci men Type: BLOOD SPECIMENOrdering Facility: [facility] Address: [address] [place] [address] Performed By: #### 2 4323-8 ####[facility] LABCLIA [id number] [place] [address] Creatinine [Mass/Vol] 0.70 mg/dL Normal 0.58-0.96 [facility] Comment on above: Order Comment: Speci men Type: BLOOD SPECIMENOrdering Facility: [facility] Address: [address] [place] [address] Performed By: #### 2 4323-8 ####[facility] LABCLIA [id number] [place] [address] ESTIMATED GLOMERULAR FILTRATION RATE 113 mL/min/1.73m??? Normal >=60 [facility] Comment on above: Order Comment: Speci men Type: BLOOD SPECIMENOrdering Facility: [facility] Address: [address] [id number] Result Comment: Purnima mated Glomerular Filtration Rate [...] actual GFR. Performed By: #### 2 4323-8 ####[facility] LABCLIA [id number] [place] [address] Glucose [Mass/Vol] 138 mg/dL High 74-99 [facility] Comment on above: Order Comment: Nicole toribio Type: BLOOD SPECIMENOrdering Facility: [facility] Address: [address] [place] [address] Result Comment: The [place] Diabetes Association (ADA) provides guidance for cutoff [...] Standards of Medical Care in Diabetes 2016, [place] [employer] Association. Diabetes Care. 2016.39(Suppl 1). Performed By: #### 2 4323-8 ####[facility] LABCLIA [id number] [place] [address] Potassium [Moles/Vol] 4.4 mmol/L Normal 3.7-5.1 [facility] Comment on above: Order Comment: Nicole toribio Type: BLOOD SPECIMENOrdering Facility: [facility] Address: [address] [id number] Performed By: #### 2 4323-8 ####[facility] LABCLIA [id number] [place] [address] Protein [Mass/Vol] 7.4 g/dL Normal 6.3-8.0 [facility] Comment on above: Order Comment: Speci men Type: BLOOD SPECIMENOrdering Facility: [facility] Address: [address] [address] Performed By: #### 2 4323-8 ####[facility] LABCLIA [id number] [place] [address] Sodium [Moles/Vol] 140 mmol/L Normal 136-144 [facility] Comment on above: Order Comment: Speci men Type: BLOOD SPECIMENOrdering Facility: [facility] Address: [address] [place] [address] Performed By: #### 2 4323-8 ####[facility] LABCLIA [id number] [place] [address] Urea nitrogen [Mass/Vol] 19 mg/dL Normal 7-21 [facility] Comment on above: Order Comment: Speci men Type: BLOOD SPECIMENOrdering Facility: [facility] Address: [address] [place] [address] Performed By: #### 2 4323-8 ####[facility] LABCLIA [id number] [place] [address] [place] 05-15-19 23 Cortisol [Mass/Vol] 3.5 ug/dL Low 4.8-19.5 [facility] Comment on above: Order Comment: Speci men Type: BLOOD SPECIMENOrdering Facility: [facility] Address: [address] [place] [address] Result Comment: Prov ided reference range is from 6-10 AM sample collection time. Cortisol Reference Range: 6-10 AM = 4.8-19.5 ug/dL, 4-8 PM = 2.5-11.9 ug/dL Performed By: #### 3 024-7, 3016-3, 2143-6 ####[facility] LABCLIA [id number] [address] [address] [place] T4 Free SerPl-mCncon 023 Free T4 [Mass/Vol] 1.1 ng/dL Normal 0.9-1.7 [facility] Comment on above: Order Comment: Speci men Type: BLOOD SPECIMENOrdering Facility: [facility] Address: [address] [place] [address] Performed By: #### 3 024-7, 3015-3, 2142-07 ####[facility] LABIA [id number] [address] TSH SerPl-aCncon 05-14-2022 TSH Qn 1.220 m[IU]/L Normal 0.270-4.200 [facility] Comment on above: Order Comment: Speci men Type: BLOOD SPECIMENOrdering Facility: [facility] Address: [address] [place] [address] Result Comment: If t he patient is , TSH reference range varies by gestational period: First Trimester (weeks 9-12): 0.180-2.990 mIU/L Second Trimester: 0.110-3.980 mIU/L Third Trimester: 0.480-4.710 mIU/L Samuel Patel et al. A Practical Approach for the Verifications and Determination of Site- and Trimester-Specific Reference Intervals for Thyroid Function tests in . Thyroid, 2019:29:3:412-420. Mirza Lopes, et al. 2017 Guidelines of the [place] Thyroid Association for the Diagnosis and Management of Thyroid Disease during and the . Thyroid, 2017:27:3:315-389. Performed By: #### 3 024-7, 3015-3, 2142-07 ####[facility] [id number] [address] [id number] [place] CBC W Auto Differential pane l (Bld)on 04-30-2022 Basophils (Bld) [#/Vol] 0.03 10*3/uL Normal <0.11 [facility] Comment on above: Order Comment: Speci men Type: BLOOD SPECIMENOrdering Facility: [facility] Address: [address] [address] Performed By: #### 5 7021-8 ####[facility] LABCLIA [id number] [place] [address] Basophils/100 WBC (Bld) 0.4 % Normal [facility] Comment on above: Order Comment: Speci men Type: BLOOD SPECIMENOrdering Facility: [facility] Address: [address] [address] Performed By: #### 5 7021-8 ####[facility] LABCLIA [id number] [place] [address] Differential cell count method Nom (Bld) Auto Normal [facility] Comment on above: Order Comment: Speci men Type: BLOOD SPECIMENOrdering Facility: [facility] Address: [address] [address] Performed By: #### 5 7021-8 ####[facility] LABCLIA [id number] [place] [address] Eosinophils (Bld) [#/Vol] 0.27 10*3/uL Normal <0.46 [facility] Comment on above: Order Comment: Speci men Type: BLOOD SPECIMENOrdering Facility: [facility] Address: [address] [address] Performed By: #### 5 7021-8 ####[facility] LABCLIA [id number] [place] [address] Eosinophils/100 WBC (Bld) 3.4 % Normal [facility] Comment on above: Order Comment: Speci men Type: BLOOD SPECIMENOrdering Facility: [facility] Address: [address] [address] Performed By: #### 5 7021-8 ####[facility] LABCLIA [id number] [place] [address] Erythrocyte distribution width (RBC) [Ratio] 13.5 % Normal 11.5-15.0 [facility] Comment on above: Order Comment: Speci men Type: BLOOD SPECIMENOrdering Facility: [facility] Address: [address] [place] [address] Performed By: #### 5 7021-8 ####[facility] LABCLIA [id number] [place] [address] Hematocrit (Bld) [Volume fraction] 43.8 % Normal 36.0-46.0 [facility] Comment on above: Order Comment: Speci men Type: BLOOD SPECIMENOrdering Facility: [facility] Address: [address] [place] [address] Performed By: #### 5 7021-8 ####[facility] LABCLIA [id number] [place] [address] Hemoglobin (Bld) [Mass/Vol] 14.6 g/dL Normal 11.5-15.5 [facility] Comment on above: Order Comment: Speci men Type: BLOOD SPECIMENOrdering Facility: [facility] Address: [address] [place] [address] Performed By: #### 5 7021-8 ####[facility] LABCLIA [id number] [place] [address] Immature granulocytes (Bld) [#/Vol] 0.03 10*3/uL Normal <0.10 [facility] Comment on above: Order Comment: Speci men Type: BLOOD SPECIMENOrdering Facility: [facility] Address: [address] [place] [address] Performed By: #### 5 7021-8 ####[facility] LABCLIA [id number] [place] [address] Immature granulocytes/100 WBC (Bld) 0.4 % Normal [facility] Comment on above: Order Comment: Speci men Type: BLOOD SPECIMENOrdering Facility: [facility] Address: [address] [place] [address] Performed By: #### 5 7021-8 ####[facility] LABCLIA [id number] [place] [address] Lymphocytes (Bld) [#/Vol] 1.85 10*3/uL Normal 1.00-4.00 [facility] Comment on above: Order Comment: Speci men Type: BLOOD SPECIMENOrdering Facility: [facility] Address: [address] [place] [address] Performed By: #### 5 7021-8 ####[facility] LABCLIA [id number] [place] [address] Lymphocytes/100 WBC (Bld) 23.5 % Normal [facility] Comment on above: Order Comment: Speci men Type: BLOOD SPECIMENOrdering Facility: [facility] Address: [address] [place] [address] Performed By: #### 5 7021-8 ####[facility] LABCLIA [id number] [place] [address] MCH (RBC) [Entitic mass] 31.8 pg Normal 26.0-34.0 [facility] Comment on above: Order Comment: Speci men Type: BLOOD SPECIMENOrdering Facility: [facility] Address: [address] [place] [address] Performed By: #### 5 7021-8 ####[facility] LABCLIA [id number] [place] [address] MCHC (RBC) [Mass/Vol] 33.3 g/dL Normal 30.5-36.0 [facility] Comment on above: Order Comment: Speci men Type: BLOOD SPECIMENOrdering Facility: [facility] Address: [address] [place] [address] Performed By: #### 5 7021-8 ####[facility] LABIA [id number] [place] [address] MCV (RBC) [Entitic vol] 95.4 fL Normal 80.0-100.0 [facility] Comment on above: Order Comment: Speci men Type: BLOOD SPECIMENOrdering Facility: [facility] Address: [address] [address] Performed By: #### 5 7021-8 ####[facility] LABCLIA [id number] [place] [address] Monocytes (Bld) [#/Vol] 0.64 10*3/uL Normal <0.87 [facility] Comment on above: Order Comment: Speci men Type: BLOOD SPECIMENOrdering Facility: [facility] Address: [address] [address] Performed By: #### 5 7021-8 ####[facility] LABCLIA [id number] [place] [address] Monocytes/100 WBC (Bld) 8.1 % Normal [facility] Comment on above: Order Comment: Speci men Type: BLOOD SPECIMENOrdering Facility: [facility] Address: [address] [address] Performed By: #### 5 7021-8 ####[facility] LABCLIA [id number] [place] [address] Neutrophils (Bld) [#/Vol] 5.04 10*3/uL Normal 1.45-7.50 [facility] Comment on above: Order Comment: Speci men Type: BLOOD SPECIMENOrdering Facility: [facility] Address: [address] [address] Performed By: #### 5 7021-8 ####[facility] LABCLIA [id number] [place] [address] Neutrophils/100 WBC (Bld) 64.2 % Normal [facility] Comment on above: Order Comment: Speci men Type: BLOOD SPECIMENOrdering Facility: [facility] Address: [address] [address] Performed By: #### 5 7021-8 ####[facility] LABCLIA [id number] [place] [address] Nucleated RBC (Bld) [#/Vol] 10*3/uL Normal <0.01 [facility] Comment on above: Order Comment: Speci men Type: BLOOD SPECIMENOrdering Facility: [facility] Address: [address] [place] [address] Performed By: #### 5 7021-8 ####[facility] LABCLIA [id number] [place] [address] Nucleated RBC/100 WBC (Bld) [Ratio] 0.0 /100 WBC Normal [facility] Comment on above: Order Comment: Speci men Type: BLOOD SPECIMENOrdering Facility: [facility] Address: [address] [place] [address] Performed By: #### 5 7021-8 ####[facility] LABCLIA [id number] [place] [address] Platelet mean volume (Bld) [Entitic vol] 8.9 fL Low 9.0-12.7 [facility] Comment on above: Order Comment: Speci men Type: BLOOD SPECIMENOrdering Facility: [facility] Address: [address] [place] [address] Performed By: #### 5 7021-8 ####[facility] LABCLIA [id number] [place] [address] Platelets (Bld) [#/Vol] 289 10*3/uL Normal 150-400 [facility] Comment on above: Order Comment: Speci men Type: BLOOD SPECIMENOrdering Facility: [facility] Address: [address] [place] [address] Performed By: #### 5 7021-8 ####[facility] LABCLIA [id number] [place] [address] RBC (Bld) [#/Vol] 4.59 10*6/uL Normal 3.90-5.20 [facility] Comment on above: Order Comment: Speci men Type: BLOOD SPECIMENOrdering Facility: [facility] Address: [address] [address] Performed By: #### 5 7021-8 ####[facility] LABIA [id number] [place] [address] WBC (Bld) [#/Vol] 7.86 10*3/uL Normal 3.70-11.00 [facility] Comment on above: Order Comment: Speci men Type: BLOOD SPECIMENOrdering Facility: [facility] Address: [address] [address] Performed By: #### 5 7021-8 ####[facility] LABIA [id number] [place] [address] Comprehensive metabolic 2000 panelon 04-30-2022 Albumin [Mass/Vol] 4.3 g/dL Normal 3.9-4.9 [facility] Comment on above: Order Comment: Speci men Type: BLOOD SPECIMENOrdering Facility: [facility] Address: [address] [address] Performed By: #### 2 4323-8 ####[facility] LABIA [id number] [place] [address] ALP [Catalytic activity/Vol] 99 U/L Normal 34-123 [facility] Comment on above: Order Comment: Speci men Type: BLOOD SPECIMENOrdering Facility: [facility] Address: [address] [address] Performed By: #### 2 4323-8 ####[facility] LABIA [id number] [place] [address] ALT [Catalytic activity/Vol] 50 U/L High 7-38 [facility] Comment on above: Order Comment: Speci men Type: BLOOD SPECIMENOrdering Facility: [facility] Address: [address] [address] Performed By: #### 2 4323-8 ####[facility] LABCLIA [id number] [place] [address] Anion gap [Moles/Vol] 7 mmol/L Low 9-18 [facility] Comment on above: Order Comment: Speci men Type: BLOOD SPECIMENOrdering Facility: [facility] Address: [address] [place] [address] Performed By: #### 2 4323-8 ####[facility] LABCLIA [id number] [place] [address] AST [Catalytic activity/Vol] 43 U/L High 13-35 [facility] Comment on above: Order Comment: Speci men Type: BLOOD SPECIMENOrdering Facility: [facility] Address: [address] [place] [address] Performed By: #### 2 4323-8 ####[facility] LABCLIA [id number] [place] [address] Bilirubin [Mass/Vol] 0.3 mg/dL Normal 0.2-1.3 [facility] Comment on above: Order Comment: Speci men Type: BLOOD SPECIMENOrdering Facility: [facility] Address: [address] [place] [address] Performed By: #### 2 4323-8 ####[facility] LABCLIA [id number] [place] [address] Calcium [Mass/Vol] 10.0 mg/dL Normal 8.5-10.2 [facility] Comment on above: Order Comment: Speci men Type: BLOOD SPECIMENOrdering Facility: [facility] Address: [address] [place] [address] Performed By: #### 2 4323-8 ####[facility] LABCLIA [id number] [place] [address] Chloride [Moles/Vol] 102 mmol/L Normal 97-105 [facility] Comment on above: Order Comment: Speci men Type: BLOOD SPECIMENOrdering Facility: [facility] Address: [address] [address] Performed By: #### 2 4323-8 ####[facility] LABCLIA [id number] [place] [address] CO2 [Moles/Vol] 29 mmol/L Normal 22-30 [facility] Comment on above: Order Comment: Speci men Type: BLOOD SPECIMENOrdering Facility: [facility] Address: [address] [place] [address] Performed By: #### 2 4323-8 ####[facility] LABCLIA [id number] [place] [address] Creatinine [Mass/Vol] 0.69 mg/dL Normal 0.58-0.96 [facility] Comment on above: Order Comment: Speci men Type: BLOOD SPECIMENOrdering Facility: [facility] Address: [address] [place] [address] Performed By: #### 2 4323-8 ####[facility] LABCLIA [id number] [place] [address] ESTIMATED GLOMERULAR FILTRATION RATE 113 mL/min/1.73m??? Normal >=60 [facility] Comment on above: Order Comment: Speci men Type: BLOOD SPECIMENOrdering Facility: [facility] Address: [address] [place] [address] Result Comment: Purnima mated Glomerular Filtration Rate [...] actual GFR. Performed By: #### 2 4323-8 ####[facility] LABCLIA [id number] [place] [address] Glucose [Mass/Vol] 112 mg/dL High 74-99 [facility] Comment on above: Order Comment: Speci men Type: BLOOD SPECIMENOrdering Facility: [facility] Address: [address] [id number] Result Comment: The [place] Diabetes Association (ADA) provides guidance for cutoff [...] Standards of Medical Care in Diabetes 2016, [place] [employer]. Diabetes Care. 2016.39(Suppl 1). Performed By: #### 2 4323-8 ####[facility] LABCLIA [id number] [place] [address] Potassium [Moles/Vol] 4.6 mmol/L Normal 3.7-5.1 [facility] Comment on above: Order Comment: Speci [facility] Type: BLOOD SPECIMENOrdering Facility: [facility] Address: [address] Performed By: #### 2 4323-8 ####[facility] LABCLIA [id number] [place] [address] Protein [Mass/Vol] 6.9 g/dL Normal 6.3-8.0 [facility] Comment on above: Order Comment: Speci men Type: BLOOD SPECIMENOrdering Facility: [facility] Address: [address] [id number] Performed By: #### 2 4323-8 ####[facility] LABCLIA [id number] [place] [address] Sodium [Moles/Vol] 138 mmol/L Normal 136-144 [facility] Comment on above: Order Comment: Speci men Type: BLOOD SPECIMENOrdering Facility: [facility] Address: [address] [place] [address] Performed By: #### 2 4323-8 ####[facility] LABCLIA [id number] [place] [address] Urea nitrogen [Mass/Vol] 12 mg/dL Normal 7-21 [facility] Comment on above: Order Comment: Speci men Type: BLOOD SPECIMENOrdering Facility: [facility] Address: [address] [place] [address] Performed By: #### 2 4323-8 ####[facility] LABCLIA [id number] [place] [address] T4 Free SerPl-mCncon 023 Free T4 [Mass/Vol] 1.0 ng/dL Normal 0.9-1.7 [facility] Comment on above: Order Comment: Speci men Type: BLOOD SPECIMENOrdering Facility: [facility] Address: [address] [place] [address] Performed By: #### 3 024-7, 3016-3 ####[facility] LABCLIA [id number] [facility] [id number] [address] [place] TSH SerPl-aCncon 04-30-2022 TSH Qn 1.580 m[IU]/L Normal 0.270-4.200 [facility] Comment on above: Order Comment: Speci men Type: BLOOD SPECIMENOrdering Facility: [facility] Address: [address] [place] [address] Result Comment: If t he patient is , TSH reference range varies by gestational period: First Trimester (weeks 9-12): 0.180-2.990 mIU/L Second Trimester: 0.110-3.980 mIU/L Third Trimester: 0.480-4.710 mIU/L Samuel Patel et al. A Practical Approach for the Verifications and Determination of Site- and Trimester-Specific Reference Intervals for Thyroid Function tests in . Thyroid, 2019:29:3:412-420. Mirza E, et al. 2017 Guidelines of the [place] Thyroid Association for the Diagnosis and Management of Thyroid Disease during and the . Thyroid, 2017:27:3:315-389. Performed By: #### 3 024-7, 3016-3 ####[facility] CHIDI [id number] [address] [id number] [place] CNPSigrid 04-25-2022 CNPN Telephone (RADTMN) CELSO POTTS ([id number]) 1980 F TRN Date Time Provider Department [...] questions or concerns or Radiation Oncology Fellow [employer] after 5pm and on weekends for urgent [...] Reviewed: 04/23/2022 Reviewed by: Juan Francisco Hutchinson APRN.RECOVERY AUDITOR - Fully Assessed Reason for Visit: Post Radiation Treatment Follow Up [[id number]] Cmt: Second attempt Prescriptions as of 04/25/2022 [...] C No.3 (B COMPLEX PLUS VITAMIN C) 43-69-32-5-300 mg cap Take 1 tablet by mouth [...] to chacho (more content not included)... Normal [facility] CNOVon 04-23-2022 CNOV Office Visit (PMAE ) CELSO POTTS ([id number]) 1980 F TRN Date Time Provider Department [...] as weather changes to spring. Modified ESAS (Buckhorn Symptom Assessment Scale) Information Provided By: Patient [...] was identified. 04/23/2022 by Juan Francisco Hutchinson APRN.RECOVERY AUDITOR Urine Screen Lab Results Component Value Date UAMPH Negative 02/24/2021 UBARB2 Negative 02/24/2021 UBENZ Negative 02/24/2021 UQBUPRE <20 01/25/2022 UQNOR (more content not included)... Normal [facility] CNPNon 04-20-2022 CNPN Telephone (RADTMN) CELSO POTTS ([id number]) 1980 F TRN Date Time Provider Department [...] for Visit: Post Radiation Treatment Follow Up [[id number]] Prescriptions as of 04/20/2022 - cyclobenzaprine (FLEXERIL) [...] C No.3 (B COMPLEX PLUS VITAMIN C) 03-24-83-5-300 mg cap Take 1 tablet by mouth [...] prophylaxis [Z79.899 (more content not included)... Normal [facility] CNOVSPon 04-10-2022 CNOVSP Visit (SP) Office (HEMAVN) DELROYCELSO ([id number]) 1980 F TRN Date Time Provider Department [...] pneumonitis She saw Dr. Alejandro sarmiento at [facility] for 2nd opinion cell([id number]) She agreed with out plan and recommended [...] SURGICAL H (more content not included)... Normal [facility] CBC W Auto Differential pane l (Bld)on 04-06-2022 Basophils (Bld) [#/Vol] 0.03 10*3/uL Normal <0.11 [facility] Comment on above: Order Comment: Speci men Type: BLOOD SPECIMENOrdering Facility: [facility] Address: [address] [place] [address] Performed By: #### 5 7021-8 ####[facility] [id number] [place] [address] [place] Basophils/100 WBC (Bld) 0.5 % Normal [facility] Comment on above: Order Comment: Speci men Type: BLOOD SPECIMENOrdering Facility: [facility] Address: [address] [place] [address] Performed By: #### 5 7021-8 ####[facility] [id number] [place] [address] [place] Differential cell count method Nom (Bld) Auto Normal [facility] Comment on above: Order Comment: Speci men Type: BLOOD SPECIMENOrdering Facility: [facility] Address: [address] [place] [address] Performed By: #### 5 7021-8 ####[facility] [id number] [place] [address] [place] Eosinophils (Bld) [#/Vol] 0.20 10*3/uL Normal <0.46 [facility] Comment on above: Order Comment: Speci men Type: BLOOD SPECIMENOrdering Facility: [facility] Address: [address] Performed By: #### 5 7021-8 ####[facility] [id number] [place] [address] [place] Eosinophils/100 WBC (Bld) 3.3 % Normal [facility] Comment on above: Order Comment: Speci men Type: BLOOD SPECIMENOrdering Facility: [facility] Address: [address] [place], [place] [address] Performed By: #### 5 7021-8 ####[facility] [id number] [place] [address] [place] Erythrocyte distribution width (RBC) [Ratio] 13.1 % Normal 11.5-15.0 [facility] Comment on above: Order Comment: Speci men Type: BLOOD SPECIMENOrdering Facility: [facility] Address: [address] [place], [place] [address] Performed By: #### 5 7021-8 ####[facility] [id number] [place] [address] [place] Hematocrit (Bld) [Volume fraction] 47.7 % High 36.0-46.0 [facility] Comment on above: Order Comment: Speci men Type: BLOOD SPECIMENOrdering Facility: [facility] Address: [address] [place], [place] [address] Performed By: #### 5 7021-8 ####[facility] [id number] [place] [address] [place] Hemoglobin (Bld) [Mass/Vol] 15.8 g/dL High 11.5-15.5 [facility] Comment on above: Order Comment: Speci men Type: BLOOD SPECIMENOrdering Facility: [facility] Address: [address] Performed By: #### 5 7021-8 ####[facility] [id number] [place], [place] [address] [place] Immature granulocytes (Bld) [#/Vol] 10*3/uL Normal <0.10 [facility] Comment on above: Order Comment: Speci men Type: BLOOD SPECIMENOrdering Facility: [facility] Address: [address] [place] [address] Performed By: #### 5 7021-8 ####[facility] [id number] [place] [address] [place] Immature granulocytes/100 WBC (Bld) 0.3 % Normal [facility] Comment on above: Order Comment: Speci men Type: BLOOD SPECIMENOrdering Facility: [facility] Address: [address] [place] [address] Performed By: #### 5 7021-8 ####[facility] [id number] [place] [address] [place] Lymphocytes (Bld) [#/Vol] 1.61 10*3/uL Normal 1.00-4.00 [facility] Comment on above: Order Comment: Speci men Type: BLOOD SPECIMENOrdering Facility: [facility] Address: [address] [place] [address] Performed By: #### 5 7021-8 ####[facility] [id number] [place] [address] OF [facility] Lymphocytes/100 WBC (Bld) 26.5 % Normal [facility] Comment on above: Order Comment: Speci men Type: BLOOD SPECIMENOrdering Facility: [facility] Address: [address] [place] [address] Performed By: #### 5 7021-8 ####[facility] [id number] [place] [address] [place] MCH (RBC) [Entitic mass] 31.3 pg Normal 26.0-34.0 [facility] Comment on above: Order Comment: Speci men Type: BLOOD SPECIMENOrdering Facility: [facility] Address: [address] [address] Performed By: #### 5 7021-8 ####[facility] [id number] [place] [address] MCHC (RBC) [Mass/Vol] 33.1 g/dL Normal 30.5-36.0 [facility] Comment on above: Order Comment: Speci men Type: BLOOD SPECIMENOrdering Facility: [facility] Address: [address] [place] [address] Performed By: #### 5 7021-8 ####[facility] [id number] [place] [address] [place] MCV (RBC) [Entitic vol] 94.5 fL Normal 80.0-100.0 [facility] Comment on above: Order Comment: Speci men Type: BLOOD SPECIMENOrdering Facility: [facility] Address: [address] [place], [place] [address] Performed By: #### 5 7021-8 ####[facility] [id number] [place] [address] [place] Monocytes (Bld) [#/Vol] 0.62 10*3/uL Normal <0.87 [facility] Comment on above: Order Comment: Speci men Type: BLOOD SPECIMENOrdering Facility: [facility] Address: [address] [place], [place] [address] Performed By: #### 5 7021-8 ####[facility] [id number] [address] STATES [facility] Monocytes/100 WBC (Bld) 10.2 % Normal [facility] Comment on above: Order Comment: Speci men Type: BLOOD SPECIMENOrdering Facility: [facility] Address: [address] [place], [place] [address] Performed By: #### 5 7021-8 ####[facility] [id number] [place] [address] [place] Neutrophils (Bld) [#/Vol] 3.59 10*3/uL Normal 1.45-7.50 [facility] Comment on above: Order Comment: Speci men Type: BLOOD SPECIMENOrdering Facility: [facility] Address: [address] [place] [address] Performed By: #### 5 7021-8 ####[facility] [id number] [place] [address] [place] Neutrophils/100 WBC (Bld) 59.2 % Normal [facility] Comment on above: Order Comment: Speci men Type: BLOOD SPECIMENOrdering Facility: [facility] Address: [address] [place] [address] Performed By: #### 5 7021-8 ####[facility] [id number] [place] [address] [place] Nucleated RBC (Bld) [#/Vol] 10*3/uL Normal <0.01 [facility] Comment on above: Order Comment: Speci men Type: BLOOD SPECIMENOrdering Facility: [facility] Address: [address] [place] [address] Performed By: #### 5 7021-8 ####[facility] [id number] [place] [address] [place] Nucleated RBC/100 WBC (Bld) [Ratio] 0.0 /100 WBC Normal [facility] Comment on above: Order Comment: Speci men Type: BLOOD SPECIMENOrdering Facility: [facility] Address: [address] [place] [address] Performed By: #### 5 7021-8 ####[facility] [id number] [place] [address] [place] Platelet mean volume (Bld) [Entitic vol] 8.6 fL Low 9.0-12.7 [facility] Comment on above: Order Comment: Speci men Type: BLOOD SPECIMENOrdering Facility: [facility] Address: [address] [place] [address] Performed By: #### 5 7021-8 ####[facility] [id number] [place] [address] [place] [facility] [place] Platelets (Bld) [#/Vol] 278 10*3/uL Normal 150-400 [facility] Comment on above: Order Comment: Speci men Type: BLOOD SPECIMENOrdering Facility: [facility] Address: [address] [place] [address] Performed By: #### 5 7021-8 ####[facility] [id number] [address] STATES OF [facility] RBC (Bld) [#/Vol] 5.05 10*6/uL Normal 3.90-5.20 [facility] Comment on above: Order Comment: Speci men Type: BLOOD SPECIMENOrdering Facility: [facility] Address: [address] [place] [address] Performed By: #### 5 7021-8 ####[facility] [id number] [address] OF [facility] WBC (Bld) [#/Vol] 6.07 10*3/uL Normal 3.70-11.00 [facility] Comment on above: Order Comment: Speci men Type: BLOOD SPECIMENOrdering Facility: [facility] Address: [address] [place] [address] Performed By: #### 5 7021-8 ####[facility] [id number] [place] [address] CNOVon 04-06-2022 CNOV Office Visit (RADTMN ) CELSO POTTS ([id number]) 1980 F TRN Date Time Provider Department [...] Evy Patricio MD Radiation Oncology Resident (PGY-5) [id number] I have personally participated in the osorio [...] C No.3 (B COMPLEX PLUS VITAMIN C) 91-27-13-5-300 mg cap Take 1 tablet by mouth once daily. - Dexlansoprazole (DEXILANT) 30 mg CpDM Take 1 capsule by mouth once daily. - Lactobac no.41/Bifido (more content not included)... Normal [facility] Comprehensive metabolic 2000 panelon 04-06-2022 Albumin [Mass/Vol] 4.1 g/dL Normal 3.9-4.9 [facility] Comment on above: Order Comment: Speci men Type: BLOOD SPECIMENOrdering Facility: [facility] Address: [address] [address] Performed By: #### 2 4323-8 ####[facility] [id number] [place] [address] [place] ALP [Catalytic activity/Vol] 71 U/L Normal 34-123 [facility] Comment on above: Order Comment: Speci men Type: BLOOD SPECIMENOrdering Facility: [facility] Address: [address] [address] Performed By: #### 2 4323-8 ####[facility] [id number] [place] [address] [place] ALT [Catalytic activity/Vol] 66 U/L High 7-38 [facility] Comment on above: Order Comment: Speci men Type: BLOOD SPECIMENOrdering Facility: [facility] Address: [address] [address] Performed By: #### 2 4323-8 ####[facility] [id number] [place] [address] [place] Anion gap [Moles/Vol] 7 mmol/L Low 9-18 [facility] Comment on above: Order Comment: Speci men Type: BLOOD SPECIMENOrdering Facility: [facility] Address: [address] [address] Performed By: #### 2 4323-8 ####[facility] [place] [facility] [id number] [place] [address] [place] AST [Catalytic activity/Vol] 61 U/L High 13-35 [facility] Comment on above: Order Comment: Speci men Type: BLOOD SPECIMENOrdering Facility: [facility] Address: [address] [address] Performed By: #### 2 4323-8 ####[facility] [facility] [id number] [place] [address] [place] Bilirubin [Mass/Vol] 0.3 mg/dL Normal 0.2-1.3 [facility] Comment on above: Order Comment: Speci men Type: BLOOD SPECIMENOrdering Facility: [facility] Address: [address] Performed By: #### 2 4323-8 ####[facility] [id number] [place] [address] [place] Calcium [Mass/Vol] 9.7 mg/dL Normal 8.5-10.2 [facility] Comment on above: Order Comment: Speci men Type: BLOOD SPECIMENOrdering Facility: [facility] Address: [address] Performed By: #### 2 4323-8 ####[facility] [place] [facility] [id number] [place] Chloride [Moles/Vol] 103 mmol/L Normal 97-105 [facility] Comment on above: Order Comment: Speci men Type: BLOOD SPECIMENOrdering Facility: [facility] Address: [address] [place] [address] Performed By: #### 2 4323-8 ####[facility] [id number] [place] [address] [place] CO2 [Moles/Vol] 30 mmol/L Normal 22-30 [facility] Comment on above: Order Comment: Speci men Type: BLOOD SPECIMENOrdering Facility: [facility] Address: [address] [place] [address] Performed By: #### 2 4323-8 ####[facility] [id number] [place] [address] OF [facility] Creatinine [Mass/Vol] 0.73 mg/dL Normal 0.58-0.96 [facility] Comment on above: Order Comment: Speci men Type: BLOOD SPECIMENOrdering Facility: [facility] Address: [address] [place] [address] Performed By: #### 2 4323-8 ####[facility] [id number] [address] ESTIMATED GLOMERULAR FILTRATION RATE 107 mL/min/1.73m??? Normal >=60 [facility] Comment on above: Order Comment: Speci men Type: BLOOD SPECIMENOrdering Facility: [facility] Address: [address] [place] [address] Result Comment: Purnima mated Glomerular Filtration Rate [...] By: #### 2 4323-8 ####[facility] [id number] [place] [address] [place] Glucose [Mass/Vol] 103 mg/dL High 74-99 [facility] Comment on above: Order Comment: Speci men Type: BLOOD SPECIMENOrdering Facility: [facility] Address: [address] [place] [address] Result Comment: The [place] Diabetes Association (ADA) provides guidance for cutoff [...] Standards of Medical Care in Diabetes 2016, [place] Diabetes Association. Diabetes Care. 2016.39(Suppl 1). Performed By: #### 2 4323-8 ####[facility] [id number] [place] [address] [place] Potassium [Moles/Vol] 4.8 mmol/L Normal 3.7-5.1 [facility] Comment on above: Order Comment: Speci men Type: BLOOD SPECIMENOrdering Facility: [facility] Address: [address] [address] Performed By: #### 2 4323-8 ####[facility] [id number] [place] [address] [place] Protein [Mass/Vol] 7.4 g/dL Normal 6.3-8.0 [facility] Comment on above: Order Comment: Speci men Type: BLOOD SPECIMENOrdering Facility: [facility] Address: [address] [place] [address] Performed By: #### 2 4323-8 ####[facility] [id number] [place] [address] [place] Sodium [Moles/Vol] 140 mmol/L Normal 136-144 [facility] Comment on above: Order Comment: Speci men Type: BLOOD SPECIMENOrdering Facility: [facility] Address: [address] [place] [address] Performed By: #### 2 4323-8 ####[facility] [id number] [place] [address] [place] Urea nitrogen [Mass/Vol] 13 mg/dL Normal 7-21 [facility] Comment on above: Order Comment: Speci men Type: BLOOD SPECIMENOrdering Facility: [facility] Address: [address] [place] [address] Performed By: #### 2 4323-8 ####[facility] [id number] [place] [address] [place] Cortis SerPl-mCncon 04-06-19 23 Cortisol [Mass/Vol] 5.4 ug/dL Normal 4.8-19.5 [facility] Comment on above: Order Comment: Speci men Type: BLOOD SPECIMENOrdering Facility: [facility] Address: [address] [place] [address] Result Comment: Prov ided reference range is from 6-10 AM sample collection time. Cortisol Reference Range: 6-10 AM = 4.8-19.5 ug/dL, 4-8 PM = 2.5-11.9 ug/dL Performed By: #### 3 024-7, 3016-3, 2143-6 ####[facility] [id number] [place] [address] [place] T4 Free SerPl-mCncon 023 Free T4 [Mass/Vol] 1.1 ng/dL Normal 0.9-1.7 [facility] Comment on above: Order Comment: Speci men Type: BLOOD SPECIMENOrdering Facility: [facility] Address: [place] Performed By: #### 3 024-7, 3016-3, 3-6 ####[facility] [id number] [address] STATES OF [facility] TSH SerPl-aCncon 04-06-2022 TSH Qn 2.140 m[IU]/L Normal 0.270-4.200 [facility] Comment on above: Order Comment: Nicole toribio Type: BLOOD SPECIMENOrdering Facility: [facility] Address: [place] [address] Result Comment: If t he patient is , TSH reference range varies by gestational period: First Trimester (weeks 9-12): 0.180-2.990 mIU/L Second Trimester: 0.110-3.980 mIU/L Third Trimester: 0.480-4.710 mIU/L Samuel Patel et al. A Practical Approach for the Verifications and Determination of Site- and Trimester-Specific Reference Intervals for Thyroid Function tests in . Thyroid, 2019:29:3:412-420. Mirza E, et al. 2017 Guidelines of the [place] Thyroid Association for the Diagnosis and Management of Thyroid Disease during and the . Thyroid, 2017:27:3:315-389. Performed By: #### 3 024-7, 3016-3, 3-6 ####[facility]IA [id number] [address] [id number] [facility] CNOVon 01-25-2022 CNOV Office Visit (CNFVM) CELSO POTTS ([id number]) 1980 F TRN Date Time Provider Department [...] treadmill. She will be meeting with a aed trainer to better understand the equipment upcoming. Has had some nausea since starting doxy for acne. Responsive to Compazine. Modified ESAS (Buckhorn Symptom Assessment Scale) Information Provided By: Patient [...] was identified. 01/25/2022 by Juan Francisco Hutchinson APRN.RECOVERY AUDITOR Urine Screen Lab Results Component Value Date UAMPH Negative 02/24/2021 UBARB2 Negative 02/24/2021 UBENZ Negative 02/24/2021 UQBUPRE <20 02/24/2021 UQNORBUP <20 02/24/2021 UCOC2 Negative 02/24/2021 UQCANN <16 02/24/2021 UOPI Negative 02/24/2021 UOXYC Negative 02/24/2021 UPCP Negative 02/24/2021 UTHC Negative 02/24/2021 UETOH <11 0 (more content not included)... Normal [facility] PAIN PANEL, UR QUANTon 01-25 8-Zivfgksfio-9,5-Di methyl-3,3-Diphenyl pyrrolidine (EDDP) Confirm (U) [Mass/Vol] <6 Normal <6 [facility] Comment on above: Order Comment: Speci men Type: URINE SPECIMEN [facility] Address: [address] [place] [address] Result Comment: EDDP is a metabolite of methadone. Performed By: #### L [id number] #### [facility] CLIA [id number] [address] [place] [address] [place] 6-Monoacetylmorphin e (6-BERNIE) (U) [Mass/Vol] <5 Normal <5 [facility] Comment on above: Order Comment: Speci men Type: URINE SPECIMEN [facility] Address: [address] [place] [address] Result Comment: 6-MA M (6-monoacetylmorphine, also known as 6-acetylmorphine) is a unique metabolite of heroin. Presence of 6-BERNIE indicates use of heroin. 6-BERNIE is further metabolized to morphine and absence of 6-BERNIE does not rule out the use of heroin. Performed By: #### L [id number] #### [facility] CLIA [id number] [address] [place] [address] [place] Amphetamine Confirm (U) [Mass/Vol] <5 Normal <5 [facility] Comment on above: Order Comment: Speci men Type: URINE SPECIMEN [facility] Address: [address] [place] [address] Performed By: #### L [id number] #### [facility] CLIA [id number] [address] [place] Benzoylecgonine Confirm (U) [Mass/Vol] <24 Normal <24 [facility] Comment on above: Order Comment: Speci men Type: URINE SPECIMEN [facility] Address: [address] [place] [address] Result Comment: Henry oylecgonine is a metabolite of cocaine. Performed By: #### L [id number] #### [facility] CLIA [id number] [address] [place] [address] [place] Buprenorphine (U) [Mass/Vol] <20 Normal <20 [facility] Comment on above: Order Comment: Speci men Type: URINE SPECIMEN [facility] Address: [address] [place] [address] Performed By: #### L [id number] #### [facility] CLIA [id number] [address] [place] [address] [place] Cannabinoids Confirm (U) [Mass/Vol] <16 Normal <16 [facility] Comment on above: Order Comment: Speci men Type: URINE SPECIMEN [facility] Address: [address] [place] [address] Result Comment: Tetr ahydrocannabinol carboxylic acid (THCA) is a metabolite of tlabt-7-zhoxirrqgrqfolouxnrm which is the main active component of marijuana. Performed By: #### L [id number] #### [facility] CLIA [id number] [address] [place] [address] [place] Codeine Confirm (U) [Mass/Vol] <11 Normal <11 [facility] Comment on above: Order Comment: Speci men Type: URINE SPECIMEN [facility] Address: [address] [place] [address] Performed By: #### L [id number] #### [facility] CLIA [id number] [address] [place] [address] [place] Dihydrocodeine Confirm (U) [Mass/Vol] <5 Normal <5 [facility] Comment on above: Order Comment: Speci men Type: URINE SPECIMEN [facility] Address: [address] [place] [address] Performed By: #### L [id number] #### [facility] CLIA [id number] [address] [place] fentaNYL Confirm (U) [Mass/Vol] <6 Normal <6 [facility] Comment on above: Order Comment: Speci men Type: URINE SPECIMEN [facility] Address: [address] [place] [address] Performed By: #### L [id number] #### [facility] CLIA [id number] [address] [place] [address] HYDROcodone Confirm (U) [Mass/Vol] <8 Normal <8 [facility] Comment on above: Order Comment: Speci men Type: URINE SPECIMEN [facility] Address: [address] [place] [address] Result Comment: Hydr ocodone is a metabolite of dihydrocodeine. Performed By: #### L [id number] #### [facility] CLIA [id number] [address] [place] [address] [place] HYDROmorphone Confirm (U) [Mass/Vol] <5 Normal <5 [facility] Comment on above: Order Comment: Speci men Type: URINE SPECIMEN [facility] Address: [address] [place] [address] Result Comment: Hydr omorphone is a metabolite of hydrocodone. Performed By: #### L [id number] #### [facility] CLIA [id number] [address] [place] [address] [place] Methadone Confirm (U) [Mass/Vol] <16 Normal <16 [facility] Comment on above: Order Comment: Speci men Type: URINE SPECIMEN [facility] Address: [address] [address] Performed By: #### L [id number] #### [facility] CLIA [id number] [facility] Methamphetamine Confirm (U) [Mass/Vol] <8 Normal <8 [facility] Comment on above: Order Comment: Speci men Type: URINE SPECIMEN [facility] Address: [address] [address] Performed By: #### L [id number] #### [facility] CLIA [id number] [address] Morphine Confirm (U) [Mass/Vol] <10 Normal <10 [facility] Comment on above: Order Comment: Speci men Type: URINE SPECIMEN [facility] Address: [address] [place] [address] Result Comment: Morp majo is a metabolite of codeine and heroin. Performed By: #### L [id number] #### [facility] IA [id number] [address] [place] [address] Norbuprenorphine (U) [Mass/Vol] <20 Normal <20 [facility] Comment on above: Order Comment: Speci men Type: URINE SPECIMEN [facility] Address: [address] [place] [address] Result Comment: Norb uprenorphine is the primary active metabolite of buprenorphine. Performed By: #### L [id number] #### [facility] CLIA [id number] [address] [place] [address] Norfentanyl Confirm (U) [Mass/Vol] <6 Normal <6 [facility] Comment on above: Order Comment: Speci men Type: URINE SPECIMEN [facility] Address: [address] [place] [address] Result Comment: Norf entanyl is a metabolite of fentanyl. Performed By: #### L [id number] #### [facility] CLIA [id number] [address] [place] [address] [place] Nortramadol (U) [Mass/Vol] <20 Normal <20 [facility] Comment on above: Order Comment: Speci men Type: URINE SPECIMEN [facility] Address: [address] [place] [address] Result Comment: Desm ethyltramadol is a metabolite of tramadol. Performed By: #### L [id number] #### [facility] CLIA [id number] [address] [place] [address] [place] NOTE,UR PAIN OCASIO Normal [facility] Comment on above: Order Comment: Speci men Type: URINE SPECIMEN [facility] Address: [address] [place] [address] Result Comment: This test is for medical use only. This test was developed and its performance characteristics determined by [facility] [place] ([facility]). It has not been cleared or approved by the FDA. [facility] is regulated under CLIA as qualified to perform high-complexity testing. This test is used for clinical purposes. It should not be regarded as investigational or for research. Performed By: #### L [id number] #### [facility] CLIA [id number] [address] [place] [address] [place] oxyCODONE Confirm (U) [Mass/Vol] 2574 ng/mL High <10 [facility] Comment on above: Order Comment: Speci men Type: URINE SPECIMEN [facility] Address: [address] [place] [address] Result Comment: Oxyc odone is not a recognized metabolite of other opiates and its presence indicates use of an oxycodone containing drug. Oxycodone is metabolized to oxymorphone. Performed By: #### L [id number] #### [facility] CLIA [id number] [facility] [place] [address] [place] oxyMORphone Confirm (U) [Mass/Vol] 2296 ng/mL High <5 [facility] Comment on above: Order Comment: Speci men Type: URINE SPECIMEN [facility] Address: [address] [place] [address] Result Comment: Oxym orphone may arise from oxymorphone containing drugs or by metabolism of oxycodone. Performed By: #### L [id number] #### [facility] CLIA [id number] [address] traMADol Confirm (U) [Mass/Vol] <25 Normal <25 [facility] Comment on above: Order Comment: Speci men Type: URINE SPECIMEN [facility] Address: [address] [place] [address] Performed By: #### L [id number] #### [facility] CLIA [id number] [address] [place] [address] [place] SPECIMEN VALIDITY, URINEon 1 03-28-2021 CHROMATE,URINE <10 Normal <50 [facility] Comment on above: Order Comment: Speci men Type: URINE SPECIMEN [facility] Address: [address] [place] [address] Performed By: #### L [id number] #### [facility] CLIA [id number] [address] STATES [place] CREATININE,URINE 78.6 mg/dL Normal 20.0-300.0 [facility] Comment on above: Order Comment: Speci men Type: URINE SPECIMEN [facility] Address: [address] [place] [address] Performed By: #### L [id number] #### [facility] CLIA [id number] [address] NITRITES,URINE <50 Normal <500 [facility] Comment on above: Order Comment: Speci men Type: URINE SPECIMEN [facility] Address: [address] Performed By: #### L [id number] #### [facility] CLIA [id number] [address] [place] [address] [place] OXIDANTS,URINE 58 mg/L Normal <200 [facility] Comment on above: Order Comment: Speci men Type: URINE SPECIMEN [facility] Address: [address] [place], [place] [address] Performed By: #### L [id number] #### [facility] CLIA [id number] [address] [place] [address] [place] pH (U) 5.7 [pH] Normal 4.5-8.0 [facility] Comment on above: Order Comment: Speci men Type: URINE SPECIMEN [facility] Address: [address] [place] [address] Performed By: #### L [id number] #### [facility] CLIA [id number] [address] [place] [address] [place] SPEC GRAVITY,UR 1.010 Normal 1.003-1.035 [facility] Comment on above: Order Comment: Speci men Type: URINE SPECIMEN [facility] Address: [address] [place], [place] [address] Performed By: #### L [id number] #### [facility] CLIA [id number] [address] [place] [address] SPECIMEN VALIDITY QUALITY Specimen quality results within acceptable limits Normal [facility] Comment on above: Order Comment: Speci men Type: URINE SPECIMEN [facility] Address: [address] [place], [place] [address] Performed By: #### L [id number] #### [facility] CLIA [id number] [address] [place] [address] [place] CBC W Auto Differential pane l (Bld)on 11-13-2021 Abs Immature Gran 0.03 k/uL <0.10 k/uL [facility] Basophils (Bld) [#/Vol] 0.03 10*3/uL <0.11 k/uL [facility] Basophils/100 WBC (Bld) 0.4 % [facility] Differential cell count method Nom (Bld) Auto [facility] Eosinophils (Bld) [#/Vol] 0.34 10*3/uL <0.46 k/uL [facility] Eosinophils/100 WBC (Bld) 4.8 % [facility] Erythrocyte distribution width (RBC) [Ratio] 13.8 % 11.5 - 15.0 % [facility] Hematocrit (Bld) [Volume fraction] 44.4 % 36.0 - 46.0 % [facility] Hemoglobin (Bld) [Mass/Vol] 14.8 g/dL 11.5 - 15.5 g/dL [facility] Immature Gran % 0.4 % [facility] Lymphocytes (Bld) [#/Vol] 1.62 10*3/uL 1.00 - 4.00 k/uL [facility] Lymphocytes/100 WBC (Bld) 23.0 % [facility] MCH (RBC) [Entitic mass] 31.6 pg 26.0 - 34.0 pg [facility] MCHC (RBC) [Mass/Vol] 33.3 g/dL 30.5 - 36.0 g/dL [facility] MCV (RBC) [Entitic vol] 94.7 fL 80.0 - 100.0 fL [facility] Monocytes (Bld) [#/Vol] 0.51 10*3/uL <0.87 k/uL [facility] Monocytes/100 WBC (Bld) 7.3 % [facility] Neutrophils (Bld) [#/Vol] 4.50 10*3/uL 1.45 - 7.50 k/uL [facility] Neutrophils/100 WBC (Bld) 64.1 % [facility] Nucleated RBC (Bld) [#/Vol] <0.01 k/uL [facility] Nucleated RBC/100 WBC (Bld) [Ratio] 0.0 /100 WBC [facility] Platelet mean volume (Bld) [Entitic vol] 9.6 fL 9.0 - 12.7 fL [facility] Platelets (Bld) [#/Vol] 310 10*3/uL 150 - 400 k/uL [facility] RBC (Bld) [#/Vol] 4.69 10*6/uL 3.90 - 5.2 0 m/uL [facility] WBC (Bld) [#/Vol] 7.03 10*3/uL 3.70 - 11. 00 k/uL [facility] CNOVon 10-26-2021 CNOV Office Visit (CNFVM) CELSO POTTS ([id number]) 1980 F TRN Date Time Provider Department 10/26/21 3:00 PM JU[facility] FRANCISCO [facility]UTCHINSON [facility] During your visit today, we recorded the following information about you: Temperature Pulse Blood pressure Weight 97.7 degrees 100/minute 117/88 103 kg Juan Francisco Hutchinson APRN.RECOVERY AUDITOR 10/26/2021 2:43 PM Signed PALLIATIVE MEDICINE PROGRESS [...] upcoming PET scan will show. Modified ESAS (Buckhorn Symptom Assessment Scale) Information Provided By: Patient [...] Medical Onco (more content not included)... Normal [facility] XR CHEST 1V FRONTAL PORTon 0 [...] adverse interval change compared to prior studies. Director Ehs: DEDE Transcribe Date/Time: Sep 20 2021 11:03P Dictated by : BRADY BUCK MD This examination was interpreted and the report reviewed and electronically signed by: BRADY BUCK MD on Sep 20 2021 11:04PM EST [id number] Normal [facility] Bacteria Bld Culton 09-21-19 22 Bacteria identified Cx Nom (Bld) CULTURE, BLOOD: No growth 5 days Normal [facility] Comment on above: Performed By: #### 6 00-7 #### [facility] CLIA [id number] [address] [place] [address] [place] Bacteria identified Cx Nom (Bld) CULTURE, BLOOD: No growth 5 days Normal [facility] Comment on above: Performed By: #### 6 00-7 #### [facility] CLIA [id number] [address] [place] [address] [place] Bacteria Ur Culton 2 Bacteria identified Cx Nom (U) CULTURE, URINE: No growth (<1,000 CFU/ml) Normal [facility] Comment on above: Performed By: #### 6 30-4 #### [facility] CLIA [id number] [address] [place] [address] [place] CBC W Auto Differential pane l (Bld)on 09-20-2021 Basophils (Bld) [#/Vol] 0.03 10*3/uL Normal <0.11 [facility] Comment on above: Order Comment: Speci men Type: BLOOD SPECIMEN Ordering Facility: [facility] Address: [address] [place] [address] Performed By: #### 5 7021-8 #### [facility] IA [id number] [address] [place] [address] [place] Basophils/100 WBC (Bld) 0.5 % Normal [facility] Comment on above: Order Comment: Speci men Type: BLOOD SPECIMEN Ordering Facility: [facility] Address: [address] [place] [address] Performed By: #### 5 7021-8 #### [facility] IA [id number] [address] [place] [id number] [place] Differential cell count method Nom (Bld) Auto Normal [facility] Comment on above: Order Comment: Speci men Type: BLOOD SPECIMEN Ordering Facility: [facility] Address: [address] Performed By: #### 5 7021-8 #### [facility] IA [id number] [address] [place] [address] [place] Eosinophils (Bld) [#/Vol] 0.20 10*3/uL Normal <0.46 [facility] Comment on above: Order Comment: Speci men Type: BLOOD SPECIMEN Ordering Facility: [facility] Address: [address] [place], [place] [address] Performed By: #### 5 7021-8 #### [facility] IA [id number] [address] [place] [address] [place] Eosinophils/100 WBC (Bld) 3.1 % Normal [facility] Comment on above: Order Comment: Speci men Type: BLOOD SPECIMEN Ordering Facility: [facility] Address: [address] [place] [address] Performed By: #### 5 7021-8 #### [facility] IA [id number] [address] [place] [address] [place] Erythrocyte distribution width (RBC) [Ratio] 13.4 % Normal 11.5-15.0 [facility] Comment on above: Order Comment: Speci men Type: BLOOD SPECIMEN Ordering Facility: [facility] Address: [address] Performed By: #### 5 7021-8 #### [facility] CLIA [id number] [address] [place] Hematocrit (Bld) [Volume fraction] 47.1 % High 36.0-46.0 [facility] Comment on above: Order Comment: Speci men Type: BLOOD SPECIMEN Ordering Facility: [facility] Address: [address] [place], [place] [address] Performed By: #### 5 7021-8 #### [facility] CLIA [id number] [address] [place] Hemoglobin (Bld) [Mass/Vol] 15.4 g/dL Normal 11.5-15.5 [facility] Comment on above: Order Comment: Speci men Type: BLOOD SPECIMEN Ordering Facility: [facility] Address: [address] [place] [address] Performed By: #### 5 7021-8 #### [facility] IA [id number] [address] [place] [address] [place] IMMATURE GRAN % 0.3 % Normal [facility] Comment on above: Order Comment: Speci men Type: BLOOD SPECIMEN Ordering Facility: [facility] Address: [address] [place] [address] Performed By: #### 5 7021-8 #### [facility] IA [id number] [address] [place] IMMATURE GRAN ABS <0.03 Normal <0.10 [facility] Comment on above: Order Comment: Speci men Type: BLOOD SPECIMEN Ordering Facility: [facility] Address: [address] [place] [address] Performed By: #### 5 7021-8 #### [facility] IA [id number] [address] [place] Lymphocytes (Bld) [#/Vol] 0.78 10*3/uL Low 1.00-4.00 [facility] Comment on above: Order Comment: Speci men Type: BLOOD SPECIMEN Ordering Facility: [facility] Address: [address] [place] [address] Performed By: #### 5 7021-8 #### [facility] IA [id number] [address] [place] Lymphocytes/100 WBC (Bld) 11.9 % Normal [facility] Comment on above: Order Comment: Speci men Type: BLOOD SPECIMEN Ordering Facility: [facility] Address: [address] [place] [address] Performed By: #### 5 7021-8 #### [facility] IA [id number] [address] [place] [address] [place] MCH (RBC) [Entitic mass] 31.0 pg Normal 26.0-34.0 [facility] Comment on above: Order Comment: Speci men Type: BLOOD SPECIMEN Ordering Facility: [facility] Address: [address] [place] [address] Performed By: #### 5 7021-8 #### [facility] IA [id number] [address] [place] [address] [place] MCHC (RBC) [Mass/Vol] 32.7 g/dL Normal 30.5-36.0 [facility] Comment on above: Order Comment: Speci men Type: BLOOD SPECIMEN Ordering Facility: [facility] Address: [address] [place] [address] Performed By: #### 5 7021-8 #### [facility] IA [id number] [address] [place] [address] [place] MCV (RBC) [Entitic vol] 94.8 fL Normal 80.0-100.0 [facility] Comment on above: Order Comment: Speci men Type: BLOOD SPECIMEN Ordering Facility: [facility] Address: [address] [place] [address] Performed By: #### 5 7021-8 #### [facility] IA [id number] [address] [place] [address] [place] Monocytes (Bld) [#/Vol] 0.81 10*3/uL Normal <0.87 [facility] Comment on above: Order Comment: Speci men Type: BLOOD SPECIMEN Ordering Facility: [facility] Address: [address] [place] [address] Performed By: #### 5 7021-8 #### [facility] IA [id number] [address] [place] Monocytes/100 WBC (Bld) 12.4 % Normal [facility] Comment on above: Order Comment: Speci men Type: BLOOD SPECIMEN Ordering Facility: [facility] Address: [address] [place], [place] [address] Performed By: #### 5 7021-8 #### [facility] CLIA [id number] [address] [place] [address] [place] Neutrophils (Bld) [#/Vol] 4.71 10*3/uL Normal 1.45-7.50 [facility] Comment on above: Order Comment: Speci men Type: BLOOD SPECIMEN Ordering Facility: [facility] Address: [address] [place], [place] [address] Performed By: #### 5 7021-8 #### [facility] CLIA [id number] [address] [place] [address] [place] Neutrophils/100 WBC (Bld) 71.8 % Normal [facility] Comment on above: Order Comment: Speci men Type: BLOOD SPECIMEN Ordering Facility: [facility] Address: [address] [place] [address] Performed By: #### 5 7021-8 #### [facility] IA [id number] [address] [place] [address] [place] Nucleated RBC (Bld) [#/Vol] 10*3/uL Normal <0.01 [facility] Comment on above: Order Comment: Speci men Type: BLOOD SPECIMEN Ordering Facility: [facility] Address: [address] [place], [place] [address] Performed By: #### 5 7021-8 #### [facility] IA [id number] [address] [place] [address] [place] Nucleated RBC/100 WBC (Bld) [Ratio] 0.0 /100 WBC Normal [facility] Comment on above: Order Comment: Speci men Type: BLOOD SPECIMEN Ordering Facility: [facility] Address: [address] [place], [place] [address] Performed By: #### 5 7021-8 #### [facility] IA [id number] [address] [place] [address] [place] Platelet mean volume (Bld) [Entitic vol] 9.0 fL Normal 9.0-12.7 [facility] Comment on above: Order Comment: Speci men Type: BLOOD SPECIMEN Ordering Facility: [facility] Address: [address] [place], [place] [address] Performed By: #### 5 7021-8 #### [facility] CLIA [id number] [address] [place] [address] [place] Platelets (Bld) [#/Vol] 229 10*3/uL Normal 150-400 [facility] Comment on above: Order Comment: Speci men Type: BLOOD SPECIMEN Ordering Facility: [facility] Address: [address] [place], [place] [address] Performed By: #### 5 7021-8 #### [facility] IA [id number] [address] [place] [address] [place] RBC (Bld) [#/Vol] 4.97 10*6/uL Normal 3.90-5.20 [facility] Comment on above: Order Comment: Speci men Type: BLOOD SPECIMEN Ordering Facility: [facility] Address: [address] [place], [place] [address] Performed By: #### 5 7021-8 #### [facility] IA [id number] [address] [place] [address] [place] WBC (Bld) [#/Vol] 6.55 10*3/uL Normal 3.70-11.00 [facility] Comment on above: Order Comment: Speci men Type: BLOOD SPECIMEN Ordering Facility: [facility] Address: [address] [place], [place] [address] Performed By: #### 5 7021-8 #### [facility] IA [id number] [address] [place] [address] [facility] [place] Comprehensive metabolic 2000 panelon 09-20-2021 Albumin [Mass/Vol] 4.5 g/dL Normal 3.9-4.9 [facility] Comment on above: Order Comment: Speci men Type: URINE SPECIMEN Ordering Facility: [facility] Address: [address] [place], [place] [address] Performed By: #### 2 106-3 #### [facility] CLIA [id number] [address] [place] [address] [place] ALP [Catalytic activity/Vol] 81 U/L Normal 34-123 [facility] Comment on above: Order Comment: Speci men Type: URINE SPECIMEN Ordering Facility: [facility] Address: [address] [place] [address] Performed By: #### 2 106-3 #### [facility] CLIA [id number] [address] [place] [address] [place] ALT [Catalytic activity/Vol] 84 U/L High 7-38 [facility] Comment on above: Order Comment: Speci men Type: URINE SPECIMEN Ordering Facility: [facility] Address: [address] [place] [address] Performed By: #### 2 106-3 #### [facility] IA [id number] [address] [place] [address] [place] Anion gap [Moles/Vol] 8 mmol/L Low 9-18 [facility] Comment on above: Order Comment: Speci men Type: URINE SPECIMEN Ordering Facility: [facility] Address: [address] [place], [place] [address] Performed By: #### 2 106-3 #### [facility] IA [id number] [address] [place] [address] [place] AST [Catalytic activity/Vol] 73 U/L High 13-35 [facility] Comment on above: Order Comment: Speci men Type: URINE SPECIMEN Ordering Facility: [facility] Address: [address] [place], [place] [address] Performed By: #### 2 106-3 #### [facility] IA [id number] [address] [place] [address] [place] Bilirubin [Mass/Vol] 0.4 mg/dL Normal 0.2-1.3 [facility] Comment on above: Order Comment: Speci men Type: URINE SPECIMEN Ordering Facility: [facility] Address: [address] [place], [place] [address] Performed By: #### 2 106-3 #### [facility] IA [id number] [address] [place] [address] [place] Calcium [Mass/Vol] 9.4 mg/dL Normal 8.5-10.2 [facility] Comment on above: Order Comment: Speci men Type: URINE SPECIMEN Ordering Facility: [facility] Address: [address] [place], [place] [address] Performed By: #### 2 106-3 #### [facility] IA [id number] [address] [place] [address] [place] Chloride [Moles/Vol] 99 mmol/L Normal 97-105 [facility] Comment on above: Order Comment: Speci men Type: URINE SPECIMEN Ordering Facility: [facility] Address: [address] [place], [place] [address] Performed By: #### 2 106-3 #### [facility] IA [id number] [address] [place] [address] [place] CO2 [Moles/Vol] 30 mmol/L Normal 22-30 [facility] Comment on above: Order Comment: Speci men Type: URINE SPECIMEN Ordering Facility: [facility] Address: [address] [place], [place] [address] Performed By: #### 2 106-3 #### [facility] IA [id number] [address] [place] [address] [place] Creatinine [Mass/Vol] 0.78 mg/dL Normal 0.58-0.96 [facility] Comment on above: Order Comment: Speci men Type: URINE SPECIMEN Ordering Facility: [facility] Address: [address] [place], [place] [address] Performed By: #### 2 106-3 #### [facility] IA [id number] [address] [place] [address] [place] ESTIMATED GLOMERULAR FILTRATION RATE 99 mL/min/1.73m??? Normal >=60 [facility] Comment on above: Order Comment: Specmarcia men Type: URINE SPECIMEN Ordering Facility: [facility] Address: [address] [place] [id number] Result Comment: Purnima mated Glomerular Filtration Rate [...] GFR. Performed By: #### 2 106-3 #### [facility] CLIA [id number] [facility] [place] [address] [place] Glucose [Mass/Vol] 97 mg/dL Normal 74-99 [facility] Comment on above: Order Comment: Nicole toribio Type: URINE SPECIMEN Ordering Facility: [facility] Address: [address] [place] [address] Result Comment: The [place] [employer] Association (ADA) provides guidance for cutoff [...] Standards of Medical Care in Diabetes 2016, [place] [employer]. Diabetes Care. 2016.39(Suppl 1). Performed By: #### 2 106-3 #### [facility] CLIA [id number] [address] [facility] [place] [address] [place] Potassium [Moles/Vol] 3.8 mmol/L Normal 3.7-5.1 [facility] Comment on above: Order Comment: Nicole malu Type: URINE SPECIMEN Ordering Facility: [facility] Address: [address] [place] [id number] Performed By: #### 2 106-3 #### [facility] IA [id number] [address] [place] Protein [Mass/Vol] 7.3 g/dL Normal 6.3-8.0 [facility] Comment on above: Order Comment: Speci men Type: URINE SPECIMEN Ordering Facility: [facility] Address: [address] [place] [address] Performed By: #### 2 106-3 #### [facility] IA [id number] [address] [place] [address] [place] Sodium [Moles/Vol] 137 mmol/L Normal 136-144 [facility] Comment on above: Order Comment: Speci men Type: URINE SPECIMEN Ordering Facility: [facility] Address: [address] [place] [address] Performed By: #### 2 106-3 #### [facility] IA [id number] [address] [place] [address] [place] Urea nitrogen [Mass/Vol] 8 mg/dL Normal 7-21 [facility] Comment on above: Order Comment: Speci men Type: URINE SPECIMEN Ordering Facility: [facility] Address: [address] [place] [address] Performed By: #### 2 106-3 #### [facility] IA [id number] [address] [place] ECG COMPLETEon 09-20-2021 ECG COMPLETE Ventricular Rate : 1 08 BPM Atrial Rate : 109 BPM P-R Interval : 158 ms QRS Duration : 91 ms Q-T Interval : 332 ms QTC Calculation(Bazett) : 445 ms Calculated P [place] : 66 degrees Calculated R [place] : -26 degrees Calculated T [place] : 11 degrees Sinus tachycardia LVH by voltage Anterior Q waves, possibly due to LVH Abnormal ECG 2052 no STEMI Confirmed by TREY NAJERA MD ([id number]), copy editor SHERIN DELACRUZ ([id number]) on 09/21/2021 9:56:42 AM NAME : CELSO POTTS PID : [id number] : 1980 Gender : Female Race : ORD : [id number] Procedure Date : Sep 20 2021 20:31:09 Edit Date : Sep 21 2021 09:56:43 Diagnosis: Sinus tachycardia LVH by voltage Anterior Q waves, possibly due to LVH Abnormal ECG 2052 no STEMI Confirmed by TREY NAJERA MD ([id number]), copy editor SHERIN DELACRUZ ([id number]) on 09/21/2021 9:56:42 AM Test Reason : Chest Pain Location : 302 : ED AVED-15 Overread By : TREY NAJERA MD Edited By : SHERIN DELACRUZ Referred By : , Acquired by : [id number], [facility] ED NOTEon 09-20-2021 ED NOTE HNO ID: [id number] Author: Paula Ardon RN Service: ? Author Type: Registered Nurse Type: ED Notes Filed: 09/20/2021 9:00 PM Note Text: Pt ambulated to bathroom - steady gait [facility] ED PROV NOTEon 09-20-2021 ED PROV NOTE HNO ID: [id number] Author: Trey Najera DO Service: Emergency Medicine [...] with fever chills body aches and fatigue. Brandt fine yesterday. Denies any runny nose sore [...] Mother - Coronary Artery Disease Maternal Grandfather [place] age 36 - Coronary Artery Disease Paternal [...] No foca (more content not included)... Normal [facility] HCG Preg Ur Qlon 09-20-2021 HCG ( test) Ql (U) Negative Normal Negative [facility] Comment on above: Order Comment: Speci men Type: URINE SPECIMEN Ordering Facility: [facility] Address: [address] [place] [address] Result Comment: This test is intended to aid in the early detection of . Very dilute urine samples, as indicated by a low specific gravity, may not contain pharmacy services representative levels of hCG. This test detects [...] . Performed By: #### 2 106-3 #### [facility] IA [id number] [address] [place] [address] TROPONIN Ton 09-20-2021 Troponin T.cardiac [Mass/Vol] ug/L Normal 0.000-0.029 [facility] Comment on above: Order Comment: Speci men Type: URINE SPECIMEN Ordering Facility: [facility] Address: [address] [place] [address] Performed By: #### 2 106-3 #### [facility] IA [id number] [address] [place] [address] Urinalysis complete panel (U )on 09-20-2021 Bacteria LM.HPF (Urine sed) [#/Area] Rare Abnormal None Seen [facility] Comment on above: Order Comment: Speci men Type: URINE SPECIMEN Ordering Facility: [facility] Address: [address] [place] [address] Performed By: #### 2 106-3 #### [facility] IA [id number] [address] [place] [address] [place] Bilirubin Ql (U) Negative Normal Negative [facility] Comment on above: Order Comment: Speci men Type: URINE SPECIMEN Ordering Facility: [facility] Address: [address] [place] [address] Performed By: #### 2 106-3 #### [facility] IA [id number] [address] [place] [address] [place] Clarity (Unsp spec) Clear Normal Clear [facility] Comment on above: Order Comment: Speci men Type: URINE SPECIMEN Ordering Facility: [facility] Address: [address] [place] [address] Performed By: #### 2 106-3 #### [facility] IA [id number] [address] [place] [address] [place] Color (U) Yellow Normal Yellow [facility] Comment on above: Order Comment: Speci men Type: URINE SPECIMEN Ordering Facility: [facility] Address: [address] [place] [address] Performed By: #### 2 106-3 #### [facility] [id number] [address] [place] [address] [place] Epithelial cells LM.HPF (Urine sed) [#/Area] Few Normal [facility] Comment on above: Order Comment: Speci men Type: URINE SPECIMEN Ordering Facility: [facility] Address: [address] [place] [address] Performed By: #### 2 106-3 #### [facility] [id number] [address] [place] [address] [place] Glucose Test strip (U) [Mass/Vol] Negative Normal Negative [facility] Comment on above: Order Comment: Speci men Type: URINE SPECIMEN Ordering Facility: [facility] Address: [address] [place] [address] Performed By: #### 2 106-3 #### [facility] [id number] [address] [place] [address] [place] Hemoglobin Ql (U) Negative Normal Negative [facility] Comment on above: Order Comment: Speci men Type: URINE SPECIMEN Ordering Facility: [facility] Address: [address] [place] [address] Performed By: #### 2 106-3 #### [facility] [id number] [address] [place] [address] [place] Ketones Ql (U) Negative Normal Negative [facility] Comment on above: Order Comment: Speci men Type: URINE SPECIMEN Ordering Facility: [facility] Address: [address] [place] [address] Performed By: #### 2 106-3 #### [facility] IA [id number] [place] [address] [place] Leukocyte esterase Test strip Ql (U) Trace Abnormal Negative [facility] Comment on above: Order Comment: Speci men Type: URINE SPECIMEN Ordering Facility: [facility] Address: [address] [place] [address] Performed By: #### 2 106-3 #### [facility] [id number] [address] [place] [address] [place] Nitrite Ql (U) Negative Normal Negative [facility] Comment on above: Order Comment: Speci men Type: URINE SPECIMEN Ordering Facility: [facility] Address: [address] [place] [address] Performed By: #### 2 106-3 #### [facility] [id number] [address] [place] [address] [place] pH (U) 7.0 [pH] Normal 5.0-8.0 [facility] Comment on above: Order Comment: Speci men Type: URINE SPECIMEN Ordering Facility: [facility] Address: [address] [place] [address] Performed By: #### 2 106-3 #### [facility] [id number] [address] [place] [address] [place] Protein (U) [Mass/Vol] Negative Normal Negative [facility] Comment on above: Order Comment: Speci men Type: URINE SPECIMEN Ordering Facility: [facility] Address: [address] [place] [address] Performed By: #### 2 106-3 #### [facility] [id number] [address] [place] [address] [place] RBC LM.HPF (Urine sed) [#/Area] 0-3 /HPF Normal 0-3 /HPF [facility] Comment on above: Order Comment: Speci men Type: URINE SPECIMEN Ordering Facility: [facility] Address: [address] [place] [address] Performed By: #### 2 106-3 #### [facility] [id number] [address] [place], [place] [id number] [place] Specific gravity (U) [Rel density] 1.006 Normal 1.005-1.030 [facility] Comment on above: Order Comment: Speci men Type: URINE SPECIMEN Ordering Facility: [facility] Address: [address] [place] [address] Performed By: #### 2 106-3 #### [facility] [place] [id number] [place] Urobilinogen Ql (U) 0.2 EU/dL Normal 0.2-1.0 EU/dL [facility] Comment on above: Order Comment: Speci men Type: URINE SPECIMEN Ordering Facility: [facility] Address: [address] [place] [address] Performed By: #### 2 106-3 #### [facility] [id number] [place] WBC LM.HPF (Urine sed) [#/Area] 0-5 /HPF Normal 0-5 /HPF [facility] Comment on above: Order Comment: Speci men Type: URINE SPECIMEN Ordering Facility: [facility] Address: [address] [place] [address] Performed By: #### 2 106-3 #### [facility] [place] [id number] [place] WOUND CULTUREon 07-28-2021 Bacteria identified Aer cx Nom (Unsp spec) Final report Normal [facility] Comment on above: Performed By: #### C XWND #### [facility] [address] [place] [address] Dr. Kristina Morales Result 1 Mixed skin doni Normal [facility] Comment on above: Performed By: #### C XWND #### [facility] [address] [place] [address] Dr. Kristina Morales Initial Visit (Otolaryngolog y)on [...] Touchworks Culture, Urineon 04-17-2021 Culture, Urine ORDER#: [id number] ORDERED BY: SHEILA LIN SOURCE: Urine Voided COLLECTED: 04/17/21 18:42 ANTIBIOTICS AT CECILY.: RECEIVED : 04/17/21 19:23 Culture, Urine FINAL 04/19/21 12:36 Cult,Urine: NO SIGNIFICANT GROWTH Performed at [address], [place] [id number] ([phone] Normal [facility] Comment on above: Performed By: #### C SHIRA #### [facility] [address] [place] [address] Urinalysis, reflex to micros copicon 04-17-2021 Bilirubin Ql (U) Negative Normal Negative [facility] Comment on above: Performed By: #### U A #### [facility] [address] [place] [address] Clarity (U) Clear Normal Clear [facility] Comment on above: Performed By: #### U A #### [facility] [address] [place] [address] Color (U) Yellow Normal Straw/[place]worth [facility] Comment on above: Performed By: #### U A #### [facility] [address] [place] [address] Glucose Ql (U) Negative Normal Negative [facility] Comment on above: Performed By: #### U A #### [facility] [address] [place] [address] Hemoglobin Ql (U) Negative Normal Negative [facility] Comment on above: Performed By: #### U A #### [facility] [address] [place] [address] Ketones Ql (U) Negative Normal Negative [facility] Comment on above: Performed By: #### U A #### [facility] [address] [place] [address] Leukocyte esterase Test strip Ql (U) TRACE Abnormal Negative [facility] Comment on above: Performed By: #### U A #### [facility] [address] [place] [address] Nitrite Ql (U) Negative Normal Negative [facility] Comment on above: Performed By: #### U A #### [facility] [address] [place] [address] pH (U) 6.0 [pH] Normal 5.0-9.0 [facility] Comment on above: Performed By: #### U A #### [facility] [address] [place] [address] Protein Ql (U) Negative Normal Negative [facility] Comment on above: Performed By: #### U A #### [facility] [address] [place] [address] Specific gravity (U) [Rel density] 1.006 Normal 1.005-1.03 [facility] Comment on above: Performed By: #### U A #### [facility] [address] [place] [address] Urobilinogen Qn (U) 0.2 {Nuvia'U}/dL Normal < 2.0 [facility] Comment on above: Performed By: #### U A #### [facility] [address] [place] [address] Urine Microscopicon 04-17-19 22 Bacteria LM.HPF (Urine sed) [#/Area] Negative Normal Negative [facility] Comment on above: Performed By: #### U RICARDO #### [facility] [address] [place] [address] Urine Epithelial Cells Auto 0-2 Normal 0-5 [facility] Comment on above: Performed By: #### U RICARDO #### [facility] [address] [place] [address] Urine Hyaline Casts Auto 0-1 Normal 0-5 [facility] Comment on above: Performed By: #### U RICARDO #### [facility] [address] [place] [address] Urine RBC Auto 0-2 Normal 0-5 [facility] Comment on above: Performed By: #### U RICARDO #### [facility] [address] [place] [address] Urine WBC Auto 0-2 Normal 0-5 [facility] Comment on above: Performed By: #### U RICARDO #### [facility] [address] [place] [address] COVID Quick Testingon 2020 Result Negative [employer] Other XR ELBOW 3V AP/LAT/OTHER LTo n [...] effusion. IMPRESSION: Normal radiographs of the elbow. Director Ehs: [facility] Transcribe Date/Time: Nov 23 2020 11:11A Dictated by : SHERLY العلي MD This examination was interpreted and the report reviewed and electronically signed by: LIBRA COOK MD on Nov 23 2020 4:30PM EST [id number] Normal [facility] KNEE CMPLT, 4 OR MORE VIEWSo n 08-24-2019 KNEE CMPLT, 4 OR MORE VIEWS Patient Name: CELSO POTTS STUDY: KNEE; COMPLT, 4 OR MORE VIEWS; Left; 08/24/2019 3:23 pm INDICATION: Pain. ACCESSION NUMBER(S): [id number] ORDERING CLINICIAN: RENETTA GUERRERO FINDINGS: Left knee x-rays four views AP, lateral, tunnel and sunrise view: No acute fractures, no dislocation. No significant degenerative changes. Electronically signed by: RENETTA GUERRERO MD Normal [facility] Free T4on 03-02-2019 Free T4 [Mass/Vol] 1.2 ng/dL Normal 0.9-1.7 [facility] Comment on above: Performed By: #### F T4, TSH #### [facility] Routine Lab [address] [place], [place] [id number] TSHon 03-02-2019 TSH Qn 5.290 uU/mL High 0.270-4.200 [facility] Comment on above: Performed By: #### F T4, TSH #### [facility] Routine Lab [address] [place], [place] [address] Vital Signs Date Time Vital Sign Value Performing Clinician Facility 03-28-2023 14:19-0500 Body weight 108.86 kg Kylie Nunes APRN.RECOVERY AUDITOR Work Phone: [facility] 03-28-2023 14:19-0500 Diastolic blood pressure 81 mm[Hg] Kylie Nunes APRN.RECOVERY AUDITOR Work Phone: [facility] 03-28-2023 14:19-0500 Heart rate 99 /min Kylie Nunes APRN.RECOVERY AUDITOR Work Phone: [facility] 03-28-2023 14:19-0500 SaO2% (BldA) [Mass fraction] 97 % Kylie Nunes APRN.RECOVERY AUDITOR Work Phone: [facility] 03-28-2023 14:19-0500 Systolic blood pressure 114 mm[Hg] Kylie Nunes APRN.RECOVERY AUDITOR Work Phone: [facility] 01-29-2023 16:45-0500 Body height 182.88 cm Keke Bright Other [facility] Other 01-29-2023 16:45-0500 Body mass index (BMI) [Ratio] 30.92 kg/m2 Keke Kaila Other [facility] Other 01-29-2023 16:45-0500 Body temperature 98 [degF] Keke Kaila Other [facility] Other 01-29-2023 16:45-0500 Body weight 103.42 kg Keke Kalia Other [facility] Other 01-29-2023 16:45-0500 Diastolic blood pressure 86 mm[Hg] Keke Kaila Other [facility] Other 01-29-2023 16:45-0500 Respiratory rate 18 /min Keke Kaila Other [facility] Other 01-29-2023 16:45-0500 SaO2% (BldA) [Mass fraction] 98 % Keke Kaila Other [facility] Other 01-29-2023 16:45-0500 Systolic blood pressure 133 mm[Hg] Keke Kaila Other [facility] [employer] Other 01-01-2023 10:53-0500 Body height 180 cm Alexsander Ledezma MD Work Phone: [facility] 01-01-2023 10:53-0500 Body temperature 97 [degF] Alexsander Ledezma MD Work Phone: [facility] 01-01-2023 10:53-0500 Body weight 102.6 kg Alexsander Ledezma MD Work Phone: [facility] 01-01-2023 10:53-0500 Diastolic blood pressure 89 mm[Hg] Alexsander Ledezma MD Work Phone: [facility] 01-01-2023 10:53-0500 Heart rate 104 /min Alexsander Ledezma MD Work Phone: [facility] 01-01-2023 10:53-0500 Respiratory rate 16 /min Alexsander Ledezma MD Work Phone: [facility] 01-01-2023 10:53-0500 SaO2% (BldA) [Mass fraction] 97 % Alexsander Ledezma MD Work Phone: [facility] 01-01-2023 10:53-0500 Systolic blood pressure 133 mm[Hg] Alexsander Ledezma MD Work Phone: [facility] 10-18-2022 11:01-0400 Body temperature 98.2 [degF] Juan Francisco Hutchinson MARINE ENGINE MACHINIST APPRENTICE.RECOVERY AUDITOR Work Phone: [facility] 10-18-2022 11:01-0400 Body weight 102.01 kg Juan Francisco Hutchinson MARINE ENGINE MACHINIST APPRENTICE.RECOVERY AUDITOR Work Phone: [facility] 10-18-2022 11:01-0400 Diastolic blood pressure 81 mm[Hg] Juan Francisco Hutchinson MARINE ENGINE MACHINIST APPRENTICE.RECOVERY AUDITOR Work Phone: [facility] 10-18-2022 11:01-0400 Heart rate 96 /min Juan Francisco Hutchinson MARINE ENGINE MACHINIST APPRENTICE.RECOVERY AUDITOR Work Phone: [facility] 10-18-2022 11:01-0400 SaO2% (BldA) [Mass fraction] 96 % Juan Francisco Hutchinson MARINE ENGINE MACHINIST APPRENTICE.RECOVERY AUDITOR Work Phone: [facility] 10-18-2022 11:01-0400 Systolic blood pressure 116 mm[Hg] Juan Francisco Hutchinson MARINE ENGINE MACHINIST APPRENTICE.RECOVERY AUDITOR Work Phone: [facility] 09-13-2022 10:06-0400 Body weight 103.87 kg Summer Carver MD Work Phone: [facility] 09-13-2022 10:06-0400 Diastolic blood pressure 87 mm[Hg] Summer Carver MD Work Phone: [facility] 09-13-2022 10:06-0400 Heart rate 95 /min Summer Carver MD Work Phone: [facility] 09-13-2022 10:06-0400 Respiratory rate 16 /min Summer Carver MD Work Phone: [facility] 09-13-2022 10:06-0400 SaO2% (BldA) [Mass fraction] 96 % Summer Carver MD Work Phone: [facility] 09-13-2022 10:06-0400 Systolic blood pressure 121 mm[Hg] Summer Carver MD Work Phone: [facility] 08-22-2022 14:33-0400 Body temperature 98.6 [degF] Cyn Ramires MD Work Phone: [facility] 08-22-2022 14:33-0400 Diastolic blood pressure 74 mm[Hg] Cyn Ramires MD Work Phone: [facility] 08-22-2022 14:33-0400 Heart rate 100 /min Cyn Ramires MD Work Phone: [facility] 08-22-2022 14:33-0400 SaO2% (BldA) [Mass fraction] 94 % Cyn Ramires MD Work Phone: [facility] 08-22-2022 14:33-0400 Systolic blood pressure 105 mm[Hg] Cyn Ramires MD Work Phone: [facility] 08-01-2022 09:56-0400 Body height 180.3 cm Ella Rocio MARINE ENGINE MACHINIST APPRENTICE.RECOVERY AUDITOR Work Phone: [facility] 08-01-2022 09:56-0400 Body temperature 97 [degF] Ella Rocio MARINE ENGINE MACHINIST APPRENTICE.RECOVERY AUDITOR Work Phone: [facility] 08-01-2022 09:56-0400 Diastolic blood pressure 80 mm[Hg] Ella Rocio MARINE ENGINE MACHINIST APPRENTICE.RECOVERY AUDITOR Work Phone: [facility] 08-01-2022 09:56-0400 Heart rate 100 /min Ella Rocio MARINE ENGINE MACHINIST APPRENTICE.RECOVERY AUDITOR Work Phone: [facility] 08-01-2022 09:56-0400 SaO2% (BldA) [Mass fraction] 95 % Ella Chan MARINE ENGINE MACHINIST APPRENTICE.RECOVERY AUDITOR Work Phone: [facility] 08-01-2022 09:56-0400 Systolic blood pressure 115 mm[Hg] Ella Chan MARINE ENGINE MACHINIST APPRENTICE.RECOVERY AUDITOR Work Phone: [facility] 07-19-2022 10:32-0400 Body weight 105.33 kg Juan Francisco Hutchinson MARINE ENGINE MACHINIST APPRENTICE.RECOVERY AUDITOR Work Phone: [facility] 07-19-2022 10:32-0400 Diastolic blood pressure 84 mm[Hg] Juan Francisco Hutchinson MARINE ENGINE MACHINIST APPRENTICE.RECOVERY AUDITOR Work Phone: [facility] 07-19-2022 10:32-0400 Heart rate 104 /min Juan Francisco Hutchinson MARINE ENGINE MACHINIST APPRENTICE.RECOVERY AUDITOR Work Phone: [facility] 07-19-2022 10:32-0400 SaO2% (BldA) [Mass fraction] 94 % Juan Francisco Hutchinson MARINE ENGINE MACHINIST APPRENTICE.RECOVERY AUDITOR Work Phone: [facility] 07-19-2022 10:32-0400 Systolic blood pressure 124 mm[Hg] Juan Francisco Hutchinson MARINE ENGINE MACHINIST APPRENTICE.RECOVERY AUDITOR Work Phone: [facility] 07-18-2022 11:06-0400 Body height 182.9 cm Cyn Ramires MD Work Phone: [facility] 07-18-2022 11:06-0400 Body temperature 98.2 [degF] Cyn Ramires MD Work Phone: [facility] 07-18-2022 11:06-0400 Body weight 106.41 kg Cyn Ramires MD Work Phone: [facility] 07-18-2022 11:06-0400 Diastolic blood pressure 86 mm[Hg] Cyn Ramires MD Work Phone: [facility] 07-18-2022 11:06-0400 Heart rate 103 /min Cyn Ramires MD Work Phone: [facility] 07-18-2022 11:06-0400 Respiratory rate 18 /min Cyn Ramires MD Work Phone: [facility] 07-18-2022 11:06-0400 SaO2% (BldA) [Mass fraction] 96 % Cyn Ramires MD Work Phone: [facility] 07-18-2022 11:06-0400 Systolic blood pressure 124 mm[Hg] Cyn Ramires MD Work Phone: [facility] 05-01-2022 09:51-0400 Body temperature 98.01 [degF] Treatment Rej Work Phone: [facility] 05-01-2022 09:51-0400 Diastolic blood pressure 87 mm[Hg] Treatment Rej Work Phone: [facility] 05-01-2022 09:51-0400 Heart rate 106 /min Treatment Rej Work Phone: [facility] 05-01-2022 09:51-0400 Respiratory rate 18 /min Treatment Rej Work Phone: [facility] 05-01-2022 09:51-0400 Systolic blood pressure 123 mm[Hg] Treatment Rej Work Phone: [facility] 04-23-2022 09:49-0500 Body weight 106.91 kg Juan Francisco Hutchinson APRN.RECOVERY AUDITOR Work Phone: [facility] 04-23-2022 09:49-0500 Diastolic blood pressure 77 mm[Hg] Juan Francisco Hutchinson APRN.RECOVERY AUDITOR Work Phone: [facility] 04-23-2022 09:49-0500 Heart rate 99 /min Juan Francisco Hutchinson APRN.RECOVERY AUDITOR Work Phone: [facility] 04-23-2022 09:49-0500 Systolic blood pressure 113 mm[Hg] Juan Francisco Hutchinson APRN.RECOVERY AUDITOR Work Phone: [facility] 03-07-2022 11:37-0500 Body temperature 98.4 [degF] Cyn Ramires MD Work Phone: [facility] 03-07-2022 11:37-0500 Diastolic blood pressure 70 mm[Hg] Cyn Ramires MD Work Phone: [facility] 03-07-2022 11:37-0500 Heart rate 106 /min Cyn Ramires MD Work Phone: [facility] 03-07-2022 11:37-0500 SaO2% (BldA) [Mass fraction] 98 % Cyn Ramires MD Work Phone: [facility] 03-07-2022 11:37-0500 Systolic blood pressure 113 mm[Hg] Cyn Ramires MD Work Phone: [facility] 02-14-2022 12:23-0500 Body temperature 96.8 [degF] Treatment Rej Work Phone: [facility] 02-14-2022 12:23-0500 Diastolic blood pressure 89 mm[Hg] Treatment Rej Work Phone: [facility] 02-14-2022 12:23-0500 Heart rate 102 /min Treatment Rej Work Phone: [facility] 02-14-2022 12:23-0500 Systolic blood pressure 134 mm[Hg] Treatment Rej Work Phone: [facility] 01-25-2022 14:37-0500 Body temperature 98.6 [degF] Juan Francisco Hutchinson APRN.RECOVERY AUDITOR Work Phone: [facility] 01-25-2022 14:37-0500 Body weight 106.82 kg Juan Francisco Hutchinson APRN.RECOVERY AUDITOR Work Phone: [facility] 01-25-2022 14:37-0500 Diastolic blood pressure 67 mm[Hg] Juan Francisco Hutchinson APRN.RECOVERY AUDITOR Work Phone: [facility] 01-25-2022 14:37-0500 Heart rate 109 /min Juan Francisco Hutchinson APRN.RECOVERY AUDITOR Work Phone: [facility] 01-25-2022 14:37-0500 SaO2% (BldA) [Mass fraction] 96 % Juan Francisco Hutchinson APRN.RECOVERY AUDITOR Work Phone: [facility] 01-25-2022 14:37-0500 Systolic blood pressure 115 mm[Hg] Juan Francisco Hutchinson APRN.RECOVERY AUDITOR Work Phone: [facility] 01-18-2022 10:30-0500 Body temperature 96.91 [degF] Treatment Rej Work Phone: [facility] 01-18-2022 10:30-0500 Diastolic blood pressure 86 mm[Hg] Treatment Rej Work Phone: [facility] 01-18-2022 10:30-0500 Heart rate 108 /min Treatment Rej Work Phone: [facility] 01-18-2022 10:30-0500 Systolic blood pressure 125 mm[Hg] Treatment Rej Work Phone: [facility] 12-27-2021 09:25-0500 Body temperature 97.5 [degF] Sylvia Mancilla APRN.RECOVERY AUDITOR Work Phone: [facility] 12-27-2021 09:25-0500 Body weight 105.01 kg Sylvia Mancilla APRN.RECOVERY AUDITOR Work Phone: [facility] 12-27-2021 09:25-0500 Diastolic blood pressure 74 mm[Hg] Sylvia Mancilla APRN.RECOVERY AUDITOR Work Phone: [facility] 12-27-2021 09:25-0500 Heart rate 103 /min Sylvia Mancilla APRN.RECOVERY AUDITOR Work Phone: [facility] 12-27-2021 09:25-0500 SaO2% (BldA) [Mass fraction] 98 % Sylvia Mancilla APRN.RECOVERY AUDITOR Work Phone: [facility] 12-27-2021 09:25-0500 Systolic blood pressure 116 mm[Hg] Sylvia Mancilla APRN.RECOVERY AUDITOR Work Phone: [facility] 12-06-2021 13:34-0400 Body temperature 97.11 [degF] Treatment Rej Work Phone: [facility] 12-06-2021 13:34-0400 Diastolic blood pressure 88 mm[Hg] Treatment Rej Work Phone: [facility] 12-06-2021 13:34-0400 Heart rate 92 /min Treatment Rej Work Phone: [facility] 12-06-2021 13:34-0400 Respiratory rate 18 /min Treatment Rej Work Phone: [facility] 12-06-2021 13:34-0400 Systolic blood pressure 199 mm[Hg] Treatment Rej Work Phone: [facility] 11-15-2021 13:08-0400 Body height 181 cm Cyn Ramires MD Work Phone: [facility] 11-15-2021 13:08-0400 Body temperature 98.71 [degF] Cyn Ramires MD Work Phone: [facility] 11-15-2021 13:08-0400 Body weight 102.78 kg Cyn Ramires MD Work Phone: [facility] 11-15-2021 13:08-0400 Diastolic blood pressure 77 mm[Hg] Cyn Ramires MD Work Phone: [facility] 11-15-2021 13:08-0400 Heart rate 100 /min Cny Ramires MD Work Phone: [facility] 11-15-2021 13:08-0400 SaO2% (BldA) [Mass fraction] 98 % Cyn Ramires MD Work Phone: [facility] 11-15-2021 13:08-0400 Systolic blood pressure 118 mm[Hg] Cyn Ramires MD Work Phone: [facility] 10-26-2021 13:20-0400 Body temperature 97.7 [degF] Juan Francisco Hutchinson APRN.RECOVERY AUDITOR Work Phone: [facility] 10-26-2021 13:20-0400 Body weight 102.97 kg Juan Francisco Hutchinson MARINE ENGINE MACHINIST APPRENTICE.RECOVERY AUDITOR Work Phone: [facility] 10-26-2021 13:20-0400 Diastolic blood pressure 88 mm[Hg] Juan Francisco Hutchinson APRN.RECOVERY AUDITOR Work Phone: [facility] 10-26-2021 13:20-0400 Heart rate 100 /min Juan Francisco Hutchinson APRN.RECOVERY AUDITOR Work Phone: [facility] 10-26-2021 13:20-0400 SaO2% (BldA) [Mass fraction] 97 % Juan Francisco Hutchinson APRN.RECOVERY AUDITOR Work Phone: [facility] 10-26-2021 13:20-0400 Systolic blood pressure 117 mm[Hg] Juan Francisco Hutchinson APRN.RECOVERY AUDITOR Work Phone: [facility] 10-26-2021 11:28-0400 Body temperature 97.59 [degF] Treatment Rej Work Phone: [facility] 10-26-2021 11:28-0400 Diastolic blood pressure 82 mm[Hg] Treatment Rej Work Phone: [facility] 10-26-2021 11:28-0400 Heart rate 108 /min Treatment Rej Work Phone: [facility] 10-26-2021 11:28-0400 Systolic blood pressure 133 mm[Hg] Treatment Rej Work Phone: [facility] 10-25-2021 10:01-0400 Body temperature 98.2 [degF] Sylvia Mancilla APRN.RECOVERY AUDITOR Work Phone: [facility] 10-25-2021 10:01-0400 Body weight 102.78 kg Sylvia Mancilla APRN.RECOVERY AUDITOR Work Phone: [facility] 10-25-2021 10:01-0400 Diastolic blood pressure 87 mm[Hg] Sylvia Mancilla APRN.RECOVERY AUDITOR Work Phone: [facility] 10-25-2021 10:01-0400 Heart rate 102 /min Sylvia Mancilla APRN.RECOVERY AUDITOR Work Phone: [facility] 10-25-2021 10:01-0400 SaO2% (BldA) [Mass fraction] 97 % Sylvia Mancilla APRN.RECOVERY AUDITOR Work Phone: [facility] 10-25-2021 10:01-0400 Systolic blood pressure 112 mm[Hg] Sylvia Mancilla APRN.RECOVERY AUDITOR Work Phone: [facility] 09-06-2021 12:40-0400 Body temperature 97.7 [degF] Treatment Rej Work Phone: [facility] 09-06-2021 12:40-0400 Body weight 101.88 kg Treatment Rej Work Phone: [facility] 09-06-2021 12:40-0400 Diastolic blood pressure 73 mm[Hg] Treatment Rej Work Phone: [facility] 09-06-2021 12:40-0400 Heart rate 109 /min Treatment Rej Work Phone: [facility] 09-06-2021 12:40-0400 Systolic blood pressure 111 mm[Hg] Treatment Rej Work Phone: [facility] 07-26-2021 11:03-0400 Body temperature 97.3 [degF] Treatment Rej Work Phone: [facility] 07-26-2021 11:03-0400 Diastolic blood pressure 83 mm[Hg] Treatment Rej Work Phone: [facility] 07-26-2021 11:03-0400 Heart rate 99 /min Treatment Rej Work Phone: [facility] 07-26-2021 11:03-0400 Respiratory rate 18 /min Treatment Rej Work Phone: [facility] 07-26-2021 11:03-0400 Systolic blood pressure 126 mm[Hg] Treatment Rej Work Phone: [facility] 07-05-2021 08:31-0400 Body temperature 98.1 [degF] Treatment Rej Work Phone: [facility] 07-05-2021 08:31-0400 Diastolic blood pressure 87 mm[Hg] Treatment Rej Work Phone: [facility] 07-05-2021 08:31-0400 Heart rate 103 /min Treatment Rej Work Phone: [facility] 07-05-2021 08:31-0400 Respiratory rate 18 /min Treatment Rej Work Phone: [facility] 07-05-2021 08:31-0400 Systolic blood pressure 121 mm[Hg] Treatment Rej Work Phone: [facility] 06-14-2021 08:25-0400 Body height 181 cm Cyn Ramires MD Work Phone: [facility] 06-14-2021 08:25-0400 Body temperature 98.01 [degF] Cyn Ramires MD Work Phone: [facility] 06-14-2021 08:25-0400 Diastolic blood pressure 74 mm[Hg] Cyn Ramires MD Work Phone: [facility] 06-14-2021 08:25-0400 Heart rate 90 /min Cyn Ramires MD Work Phone: [facility] 06-14-2021 08:25-0400 Systolic blood pressure 108 mm[Hg] Cyn Ramires MD Work Phone: [facility] 05-17-2021 12:31-0400 Body temperature 97.2 [degF] Treatment Rej Work Phone: [facility] 05-17-2021 12:31-0400 Diastolic blood pressure 82 mm[Hg] Treatment Rej Work Phone: [facility] 05-17-2021 12:31-0400 Heart rate 94 /min Treatment Rej Work Phone: [facility] 05-17-2021 12:31-0400 SaO2% (BldA) [Mass fraction] 97 % Treatment Rej Work Phone: [facility] 05-17-2021 12:31-0400 Systolic blood pressure 124 mm[Hg] Treatment Rej Work Phone: [facility] 05-17-2021 11:09-0400 Body temperature 98.01 [degF] Juan Francisco Hutchinson APRN.RECOVERY AUDITOR Work Phone: [facility] 05-17-2021 11:09-0400 Diastolic blood pressure 72 mm[Hg] Juan Francisco Hutchinson APRN.RECOVERY AUDITOR Work Phone: [facility] 05-17-2021 11:09-0400 Heart rate 88 /min Juan Francisco Hutchinson APRN.RECOVERY AUDITOR Work Phone: [facility] 05-17-2021 11:09-0400 SaO2% (BldA) [Mass fraction] 98 % Juan Francisco Hutchinson APRN.RECOVERY AUDITOR Work Phone: [facility] 05-17-2021 11:09-0400 Systolic blood pressure 120 mm[Hg] Juan Francisco Hutchinson APRN.RECOVERY AUDITOR Work Phone: [facility] 02-02-2021 10:15-0500 Body height 182.88 cm Kylie Shawault Other [employer] Other 02-02-2021 10:15-0500 Body temperature 97.4 [degF] Kylie Shawault Other [employer] Other 02-02-2021 10:15-0500 Respiratory rate 18 /min Kylie Shawault Other [employer] Other 02-02-2021 10:15-0500 SaO2% (BldA) [Mass fraction] 92 % Kylie Shawault Other [employer] Other Encounters Encounter Date Encounter Type Care Provider Facility Start: 04-01-2023 Telephone encounter Linette figueroa APRN.RECOVERY AUDITOR Work Phone: Hematology/Oncology Comment on above: Lab Orders Start: 03-29-2023 End: 03-29-2023 ambulatory LINETTE SKINNER Not Available Start: 03-29-2023 Refill Linette Skinner SANDFILL OPERATOR SURFACE Work Phone: [facility] Comment on above: COVID-19 Start: 03-29-2023 End: 03-29-2023 Office outpatient visit 15 minutes Linette Skinner SANDFILL OPERATOR SURFACE Work Phone: [facility] Comment on above: COVID-19 (Primary Dx ) Start: 03-28-2023 End: 03-28-2023 Office outpatient visit 25 minutes Kylie Nunes MARINE ENGINE MACHINIST APPRENTICE.RECOVERY AUDITOR Work Phone: Pulmonary Medicine Comment on above: Restrictive lung dis ease (Primary Dx); Chronic cough; Post-nasal drip; Hoarseness; Dysphagia, unspecified type; History of pulmonary embolism Start: 03-28-2023 End: 03-28-2023 ambulatory JOSE VAIL Pulmonary Medicine Comment on above: Spirometry Start: 03-28-2023 End: 03-28-2023 Patient encounter procedure Pulm Lab [facility] Rej 2 Work Phone: JANAE ORTIZ [facility] Start: 03-20-2023 End: 03-20-2023 ambulatory JOSE A GENNA Facility:[facility] Start: 03-07-2023 End: 03-07-2023 ambulatory JOSE A VAIL Facility:[facility] Start: 02-25-2023 End: 02-25-2023 ambulatory LINETTE SKINNER Not Available Start: 02-19-2023 End: 02-19-2023 ambulatory JOSE A GENNA Facility:[facility] Start: 02-12-2023 End: 02-12-2023 ambulatory SHEILA LIN Not Available Start: 01-29-2023 End: 01-29-2023 Departed Referred MD Jose Vail Work Phone: [facility] [place] Work Phone: Start: 01-29-2023 End: 01-29-2023 ambulatory MD Jose Vail Work Phone: [employer] Other Start: 01-29-2023 Office outpatient vi sit 15 minutes Keke Bright [facility] Start: 01-28-2023 End: 01-28-2023 ambulatory JOSE VAIL Facility:[facility] Start: 01-28-2023 Telephone encounter Alexsander schmidt MD Work Phone: Hematology/Oncology Comment on above: Orders Start: 01-06-2023 Refill Juan Francisco Hutchinson APRN.RECOVERY AUDITOR Work Phone: Palliative Medicine Comment on above: [...] encounter procedure Alexsander Ledezma MD Work Phone: [place] Start: 12-31-2022 Chart abstracting Alexsander kumar MD Work Phone: Hematology/Oncology Start: 12-20-2022 End: 12-20-2022 ambulatory JOSE VAIL Facility:[facility] Start: 12-16-2022 ambulatory Summer Carver MD Work Phone: JANAE ORTIZ [facility] Start: 12-16-2022 Patient encounter procedure Summer Carver MD Work Phone: Pulmonary Medicine Comment on above: Appointment Start: 11-28-2022 Refill Cyn Ramires MD Work Phone: Hematology Comment on above: Refill Request Start: 11-26-2022 ambulatory Cyn Ramires MD Work Phone: JANAE ORTIZ [facility] Start: 11-26-2022 Patient encounter procedure Cyn Ramires MD Work Phone: Hematology Comment on above: Appointment Start: 11-13-2022 Refill Sylvia OTT RN.RECOVERY AUDITOR Work Phone: Hematology Comment on above: Refill Request Start: 11-08-2022 Refill Cyn Ramires MD Work Phone: Hematology Comment on above: Refill Request Start: 11-05-2022 Refill Charlee delvalle MARINE ENGINE MACHINIST APPRENTICE.RECOVERY AUDITOR Work Phone: [facility] Comment on above: Refill Request Start: 10-25-2022 Refill Cyn Ramires MD Work Phone: Hematology Comment on above: Refill Request Start: 10-23-2022 ambulatory Juan Francisco Hutchinson APRN.RECOVERY AUDITOR Work Phone: Palliative Medicine Comment on above: Lyrica Start: 10-18-2022 Telephone encounter Kylie Mosher RN [facility] Comment on above: Insurance Authorizat ion Start: 10-18-2022 End: 10-18-2022 ambulatory JOSE A VAIL Facility:[facility] Start: 10-18-2022 End: 10-18-2022 Patient encounter procedure Juan Francisco Hutchinson APRN.RECOVERY AUDITOR Work Phone: Palliative Medicine Comment on above: Palliative care by s pecialist (Primary Dx); Nodular sclerosing Hodgkin's lymphoma, unspecified body region (HCC); Cancer related pain; Opioid use agreement exists; Muscle cramps Start: 10-18-2022 End: 10-18-2022 Nursing evaluation of patient and report Nurse Derm [facility] [place] Work Phone: Dermatology [place] Comment on above: Hidradenitis suppura tiva (Primary Dx); Painful skin lesion Start: 10-08-2022 Refill Juan Francisco Hutchinson APRN.RECOVERY AUDITOR Work Phone: [facility] Comment on above: Refill Request Start: 10-06-2022 Refill Juan Francisco Hutchinson APRN.RECOVERY AUDITOR Work Phone: [facility] Comment on above: Refill Request Start: 10-01-2022 Refill Cyn Ramires MD Work Phone: Hematology Comment on above: Refill Request Start: 09-13-2022 End: 09-13-2022 ambulatory SUMMER MEHUL Facility:[facility] Start: 09-13-2022 End: 09-13-2022 Patient encounter [...] Refill Request Start: 08-22-2022 End: 08-22-2022 ambulatory [facility] Facility:[facility] Start: 08-22-2022 End: 08-22-2022 ambulatory Cyn Ramires MD Work Phone: Hematology Comment on above: 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) Start: 08-22-2022 End: 08-22-2022 Patient encounter procedure Cyn Ramires MD Work Phone: JANAE ORTIZ [facility] Start: 08-14-2022 End: 08-14-2022 ambulatory [facility] Facility:[facility] Start: 08-13-2022 Refill Juan Francisco Hutchinson APRN.CNP Work Phone: [facility] Palliative Medicine Comment on above: Refill Request Start: 08-09-2022 Refill Cyn Ramires MD Work Phone: Hematology Comment on above: Refill Request Start: 08-07-2022 Refill Cyn Ramires MD Work Phone: Hematology Comment on above: Refill Request Start: 08-02-2022 Telephone encounter Ellanan schafer MARINE ENGINE MACHINIST APPRENTICE.RECOVERY AUDITOR Work Phone: Pulmonary Medicine Comment on above: Patient Update Start: 08-01-2022 End: 08-01-2022 ambulatory JOSE A VAIL Facility:[facility] Start: 08-01-2022 End: 08-01-2022 Patient encounter procedure Ella Chan MARINE ENGINE MACHINIST APPRENTICE.RECOVERY AUDITOR Work Phone: Pulmonary Medicine Comment on above: Chronic cough (Prima ry Dx); Productive cough; Dyspnea on exertion; Opacity of lung on imaging study Start: 07-31-2022 End: 07-31-2022 ambulatory NOVA BRIDGES Facility:[facility] Start: 07-25-2022 ambulatory Nova Bridges MARINE ENGINE MACHINIST APPRENTICE.RECOVERY AUDITOR Work Phone: [place] Start: 07-25-2022 Patient encounter procedure Nova Bridges MARINE ENGINE MACHINIST APPRENTICE.RECOVERY AUDITOR Work Phone: Dermatology [place] Comment on above: Appointment Start: 07-24-2022 Refill Cyn Ramires MD Work Phone: Hematology Comment on above: Refill Request Start: 07-22-2022 ambulatory Cyn Ramires MD Work Phone: Hematology Comment on above: Ativan Start: 07-19-2022 End: 07-19-2022 ambulatory JOSE A RICHARDS Facility:[facility] Start: 07-19-2022 End: 07-19-2022 Patient encounter procedure Juan Francisco Hutchinson MARINE ENGINE MACHINIST APPRENTICE.RECOVERY AUDITOR Work Phone: Palliative Medicine Comment on above: Palliative care by s pecialist (Primary Dx); Opioid use agreement exists; Cancer related pain; Chemotherapy-induced neuropathy (HCC); 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); Muscle cramps Start: 07-18-2022 End: 07-18-2022 ambulatory Juan Francisco Emely MARINE ENGINE MACHINIST APPRENTICE.RECOVERY AUDITOR Work Phone: [place] Comment on above: Nodular sclerosing H odgkin's lymphoma, unspecified body region (HCC) (Primary Dx) Start: 07-18-2022 End: 07-18-2022 Patient encounter procedure Juan Francisco Hutchinson MARINE ENGINE MACHINIST APPRENTICE.RECOVERY AUDITOR Work Phone: Palliative Medicine Comment on above: Appointment Start: 07-17-2022 End: 07-17-2022 ambulatory Melissa Pycraft RT(R) Radiology Ct Scan Comment on above: Radiology CT Start: 07-17-2022 Patient encounter procedure Melissa Pycraft RT(R) [facility] Start: 07-16-2022 Refill Juan Francisco Hutchinson MARINE ENGINE MACHINIST APPRENTICE.RECOVERY AUDITOR Work Phone: [facility] Palliative Medicine Comment on above: Refill Request Start: 06-21-2022 End: 06-21-[address] [facility] [place]: Start: 06-13-2022 Telephone encounter Ella schafer MARINE ENGINE MACHINIST APPRENTICE.RECOVERY AUDITOR Work Phone: Pulmonary Medicine Comment on above: New Medication Start: 06-12-2022 End: 06-12-2022 ambulatory JOSE SALCEDOE Facility:[facility] Start: 06-12-2022 End: 06-12-2022 ambulatory Cyn Ramires MD Work Phone: Hematology Comment on above: 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); Uterine leiomyoma, unspecified location Start: 06-12-2022 End: 06-12-2022 Telemedicine consultation with patient Cyn Ramires MD Work Phone: JANAE ORTIZ [facility] Start: 06-11-2022 Refill Cyn Ramires MD Work Phone: Hematology Comment on above: Refill Request Start: 06-09-2022 ambulatory Cyn Ramires MD Work Phone: JANAE ORTIZ [facility] Start: 06-09-2022 Patient encounter procedure Cyn Ramires MD Work Phone: Hematology Comment on above: Appointment Start: 06-04-2022 End: 06-04-2022 ambulatory [facility] Facility:[facility] Start: 05-31-2022 End: 05-31-2022 ambulatory [facility] Facility:[facility] Start: 05-31-2022 End: 05-31-2022 Subsequent hospital visit by physician Lauren [facility] [place] Work Phone: Radiology Comment on above: Acute cough [R05.1] Start: 05-22-2022 End: 05-22-2022 ambulatory [facility] Facility:[facility] Start: 05-18-2022 End: 05-18-2022 Telemedicine consultation with patient Estrada Del Valle MD Work Phone: [facility] Start: 05-18-2022 End: 05-21-2022 ambulatory Cyn Ramires MD Work Phone: Hematology Comment on above: Labs NO SHOW (Primary Dx) Start: 05-14-2022 End: 05-14-2022 Refill Cyn Ramires MD Work Phone: Hematology Comment on above: Refill Request Start: 05-01-2022 End: 05-01-2022 ambulatory [facility] Facility:[facility] Start: 05-01-2022 End: 05-01-2022 ambulatory Treatment 10 Delfino Rej Work Phone: Hematology Comment on above: 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) Start: 04-30-2022 End: 04-30-2022 ambulatory [facility] Facility:[facility] Start: 04-25-2022 Telephone encounter Maye garcia RN Work Phone: Radiation Oncology Comment on above: Post Radiation Treat ment Follow Up (Second attempt) Start: 04-23-2022 End: 04-23-2022 ambulatory [facility] Facility:[facility] Start: 04-23-2022 End: 04-23-2022 Patient encounter procedure Juan Francisco Hutchinson MARINE ENGINE MACHINIST APPRENTICE.RECOVERY AUDITOR Work Phone: Palliative Medicine Comment on above: [...] Estrada Del Valle MD Work Phone: [facility] Start: 04-11-2022 Radiation Oncology Note Estrada Del Valle MD Work Phone: Radiation Oncology Comment on above: Completion Note Start: 04-10-2022 End: 04-10-2022 ambulatory Treatment 9 Delfino Rej Work Phone: Hematology Comment on above: 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); Encounter for long-term (current) use of medications; Encounter for antineoplastic immunotherapy Start: 04-06-2022 End: 04-07-2022 ambulatory [facility] Facility:[facility] Start: 04-06-2022 End: 04-06-2022 ambulatory [facility] Facility:[facility] Start: 04-04-2022 End: 04-04-2022 ambulatory [facility] Facility:[facility] Start: 04-02-2022 End: 04-02-2022 ambulatory [facility] Facility:[facility] Start: 03-30-2022 Orders Only Tracy meléndez MD Work Phone: Hematology Comment on above: 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) Start: 03-23-2022 End: 03-23-2022 Patient encounter procedure [facility] Provider [facility] Comment on above: 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) Start: 03-23-2022 Radiation Oncology Note [facility] Provider [facility] Department Comment on above: RTT Injection Treatment Planning Start: 03-23-2022 End: 03-23-2022 Nursing evaluation of patient and report Nurse Cathleen Main Work Phone: Radiation Oncology Comment on above: 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); Autologous bone marrow transplantation status (HCC) Start: 03-22-2022 Telephone encounter Dary Gonzalez RN Radiation Oncology Start: 03-15-2022 Refill Lesley Figueroa on MARINE ENGINE MACHINIST APPRENTICE.RECOVERY AUDITOR Work Phone: [facility] Palliative Medicine Comment on above: Refill Request Start: 03-12-2022 End: 03-12-2022 ambulatory Estrada Del Valle MD Work Phone: Radiation Oncology Comment on above: 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) Start: 03-12-2022 End: 03-12-2022 Telemedicine consultation with patient Estrada Del Valle MD Work Phone: [facility] Start: 03-07-2022 End: 03-07-2022 ambulatory Cyn Ramires MD Work Phone: Hematology Comment on above: Chemotherapy-induced neuropathy (HCC) (Primary Dx) Start: 03-07-2022 End: 03-07-2022 Patient encounter procedure Cyn Ramires MD Work Phone: [facility] ORTI[facility] Start: 03-05-2022 Refill Sylvia OTT RN.RECOVERY AUDITOR Work Phone: Hematology Comment on above: Refill Request Start: 02-14-2022 End: 02-14-2022 ambulatory Treatment 11 Delfino Rej Work Phone: Hematology Comment on above: 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); Encounter for antineoplastic immunotherapy Start: 02-09-2022 Orders Only Antonia Lisa MD Work Phone: [facility] Provider [facility]emonc Start: 01-25-2022 End: 01-26-2022 ambulatory JOSE Mikayla SALCEDOE Facility:[facility] Start: 01-25-2022 End: 01-25-2022 Patient encounter procedure Juan Francisco Hutchinson APRN.RECOVERY AUDITOR Work Phone: [facility] Palliative Medicine Comment on above: Encounter for pallia tive care (Primary Dx); Opioid use agreement exists; Anxiety; Cancer related pain; Chemotherapy-induced neuropathy (HCC); 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); Muscle cramps Start: 01-22-2022 Refill Juan Francisco Hutchinson APRN.RECOVERY AUDITOR Work Phone: [facility] Palliative Medicine Comment on above: Refill Request Start: 01-19-2022 Refill Cyn Ramires MD Work Phone: Hematology Comment on above: Refill Request Start: 01-18-2022 End: 01-18-2022 ambulatory Treatment 12 Delfino Rej Work Phone: Hematology Comment on above: 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) Start: 01-17-2022 ambulatory Cyn Ramires MD Work Phone: [facility] ORTI[facility] Start: 01-17-2022 Patient encounter procedure Cyn Ramires MD Work Phone: Hematology Comment on above: Appointment Start: 01-15-2022 Refill Cheryl velázquez APRN.RECOVERY AUDITOR Work Phone: [facility] Palliative Medicine Comment on above: Refill Request [...] End: 12-27-2021 Patient encounter procedure Sylvia Mancilla MARINE ENGINE MACHINIST APPRENTICE.RECOVERY AUDITOR Work Phone: [facility] ORTI[facility] Start: 12-17-2021 Refill Juan Francisco Emely MARINE ENGINE MACHINIST APPRENTICE.RECOVERY AUDITOR Work Phone: [facility] Palliative Medicine Comment on above: Refill Request Start: 12-11-2021 Refill Cyn Ramires MD Work Phone: Hematology Comment on above: Refill Request Start: 12-07-2021 End: 12-07-2021 Patient encounter procedure Nova Webstertz MARINE ENGINE MACHINIST APPRENTICE.RECOVERY AUDITOR Work Phone: Dermatology [place] Comment on above: Acne vulgaris (Prima ry Dx) Start: 12-06-2021 End: 12-06-2021 ambulatory Treatment 5 Delfino Rej Work Phone: Hematology Comment on above: 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) Start: 12-04-2021 Refill Cyn Ramires MD Work Phone: Hematology Comment on above: Refill Request Start: 12-03-2021 Refill Sylvia OTT RN.RECOVERY AUDITOR Work Phone: Hematology Comment on above: Refill [...] Cyn Ramires MD Work Phone: [facility] ORTI[facility] Start: 11-13-2021 ambulatory Cyn Ramires MD Work Phone: Hematology Comment on above: PET scan Start: 11-13-2021 Telephone encounter Jeny Zaidi Hematology/Oncology Comment on above: Orders Start: 11-07-2021 Refill Cyn Ramires MD Work Phone: Hematology Comment on above: Refill Request Start: 10-31-2021 Refill Juan Francisco Hutchinson APRN.RECOVERY AUDITOR Work Phone: [facility] Palliative Medicine Comment on above: Refill Request Start: 10-26-2021 End: 10-26-2021 Patient encounter procedure Juan Francisco Hutchinson APRN.RECOVERY AUDITOR Work Phone: [facility] Palliative Medicine Comment on above: Encounter for [...] End: 10-25-2021 Patient encounter procedure Sylvia Mancilla APRN.RECOVERY AUDITOR Work Phone: [facility] ORTI[facility] Start: 10-17-2021 ambulatory Cyn Ramires MD Work Phone: Hematology Comment on above: Insurance Start: 10-16-2021 Refill Cheryl velázquez MARINE ENGINE MACHINIST APPRENTICE.RECOVERY AUDITOR Work Phone: [facility] Palliative Medicine Comment on above: Refill Request [...] Cyn Ramires MD Work Phone: [facility] ORTI[facility] Start: 09-22-2021 Patient encounter procedure Cyn Ramires MD Work Phone: Hematology Comment on above: Appointment Start: 09-22-2021 Telephone encounter Caro Srinivasan RN Hematology Comment on above: Concrete Block Molder - Marianne Rios Follow Up Start: 09-11-2021 Refill Cyn Ramires MD Work Phone: Hematology Comment on above: Refill Request Start: 09-06-2021 End: 09-06-2021 ambulatory Treatment 3 Delfino Rej Work Phone: Hematology Comment on above: 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) Start: 09-05-2021 End: 09-05-2021 Patient encounter procedure Nova Bridges MARINE ENGINE MACHINIST APPRENTICE.RECOVERY AUDITOR Work Phone: Dermatology [place] Comment on above: Hidradenitis suppura tiva (Primary Dx); Painful skin lesion; Dermatofibroma of left knee Start: 09-03-2021 Refill Cyn Ramires MD Work Phone: Hematology Comment on above: Refill Request Start: 09-02-2021 Refill Gurpreet Rios Work Phone: [facility] Palliative Medicine Comment on above: Refill Request Start: 08-30-2021 Refill Cyn Ramires MD Work Phone: Hematology Comment on above: Refill Request Start: 08-16-2021 End: 08-16-2021 ambulatory Treatment 6 Delfino Rej Work Phone: Hematology Comment on above: 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) Start: 08-14-2021 Refill Juan Francisco Hutchinson APRN.RECOVERY AUDITOR Work Phone: [facility] Palliative Medicine Comment on above: Refill Request Start: 08-03-2021 Telephone encounter Kristina Pete RN [employer] Comment on above: Care Coordination (P all med referral) Start: 07-31-2021 Orders Only Cyn Ramires MD Work Phone: Hematology Comment on above: Muscle cramps; Nodular sclerosis classical Hodgkin lymphoma (HCC) Start: 07-30-2021 ambulatory Juan Francisco Hutchinson MARINE ENGINE MACHINIST APPRENTICE.RECOVERY AUDITOR Work Phone: [facility] Start: 07-30-2021 Patient encounter procedure Juan Francisco Hutchinson MARINE ENGINE MACHINIST APPRENTICE.RECOVERY AUDITOR Work Phone: [facility] Palliative Medicine Comment on above: Saturday appointmen t Start: 07-28-2021 End: 07-28-2021 Patient encounter procedure Nova Bridges MARINE ENGINE MACHINIST APPRENTICE.RECOVERY AUDITOR Work Phone: Dermatology [place] Comment on above: Hidradenitis suppura tiva (Primary [...] Request Start: 06-15-2021 Refill Juan Francisco Hutchinson APRN.RECOVERY AUDITOR Work Phone: [facility] Palliative Medicine Comment on above: Refill Request [...] Cyn Ramires MD Work Phone: [facility] ORTI[facility] Start: 06-06-2021 Refill Cyn Ramires MD [...] 05-17-2021 Patient encounter procedure Juan Francisco Hutchinson APRN.RECOVERY AUDITOR Work Phone: [facility] Palliative Medicine Comment on above: Encounter for pallia tive care (Primary Dx); 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); Cancer related pain; Chemotherapy-induced neuropathy (HCC); Muscle cramps; Anxiety Refill Request Start: 05-17-2021 Refill Sylvia OTT RN.RECOVERY AUDITOR Work Phone: Hematology Comment on above: Refill Request Start: 05-17-2021 Telephone encounter Zaira DELANEY Work Phone: Hematology Comment on above: Concrete Block Molder - O ther Start: 05-16-2021 ambulatory Cyn Ramires MD Work Phone: JANAE Marianne ANGEL [facility] Start: 05-16-2021 Patient encounter procedure Cyn Ramires MD Work Phone: Hematology Comment on above: Appointment 05/17 Start: 02-02-2021 End: 02-02-2021 ambulatory Kylie Alex Other [employer] Other Start: 02-02-2021 Office outpatient vi sit 15 minutes Kylie Johnson [facility] Procedures Date Procedure Procedure Detail Performing Clinician Start: 03-28-2023 Nitric oxide gas determination Ella Rocio MARINE ENGINE MACHINIST APPRENTICE.RECOVERY AUDITOR Work Phone: Start: 03-28-2023 Co diffusing capacity L atnan Chan MARINE ENGINE MACHINIST APPRENTICE.RECOVERY AUDITOR Work Phone: Start: 05-31-2022 Ct thorax w/o contra st material Cyn Ramires MD Work Phone: Start: 10-25-2021 Adult depression scr eening assessment Treatment Rej Work Phone: Start: 06-14-2021 Adult depression scr eening assessment Cyn Ramires MD Work Phone: Start: 03-08-2021 Adult depression scr eening assessment Sylvia Mancilla MARINE ENGINE MACHINIST APPRENTICE.RECOVERY AUDITOR Work Phone: Start: 10-17-2018 Mammography Linette Colette y SANDFILL OPERATOR SURFACE Work Phone: Plan of Treatment Date Care Activity Detail Author Start: 03-11-2024 Urine microalbumin profile [facility] Start: 08-18-2023 Influenza vaccination Influenza Vacc ine (#1) [facility] Comment on above: Postponed from 10/19 (Patient Refused) Start: 07-04-2023 Medicare Annual Well ness (AWV) Medicare Annual Wellness (AWV) [facility] Start: 06-03-2023 End: 06-03-2023 Patient encounter procedure 06/03/2023 8:30 AM EDT Office Visit [facility] [id number] [place] [id number] Jose Vail MD [address] [place] [address] [facility] Start: 04-16-2023 End: 07-16-2023 CBC W Auto Differential panel - Blood CBC + DIFF Lab Routine 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) Expected: 04/16/2023, Expires: 07/16/2023 [facility] Work Phone: Comment on above: Expected: 04/16/2023 , Expires: 07/16/2023 Start: 04-16-2023 End: 07-16-2023 Comprehensive metabolic 2000 panel - Serum or Plasma COMP METABOLIC PANEL Lab Routine 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) Expected: 04/16/2023, Expires: 07/16/2023 [facility] Work Phone: Comment on above: Expected: 04/16/2023 , Expires: 07/16/2023 Start: 04-16-2023 End: 07-16-2023 Cortisol [Mass/volume] in Serum or Plasma CORTISOL BLD Lab Routine 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) Expected: 04/16/2023, Expires: 07/16/2023 [facility] Work Phone: Comment on above: Expected: 04/16/2023 , Expires: 07/16/2023 Start: 04-16-2023 End: 07-16-2023 Erythrocyte sedimentation rate SED RATE WESTERGREN Lab Routine 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) Expected: 04/16/2023, Expires: 07/16/2023 [facility] Work Phone: Comment on above: Expected: 04/16/2023 , Expires: 07/16/2023 Start: 02-18-2023 Depression Assessment Depression Ass essment [facility] Start: 01-29-2023 Bacteria identified in Urine by Culture [facility] Start: 01-28-2023 End: 04-29-2023 Cortisol [Mass/volume] in Serum or Plasma [facility] Work Phone: Comment on above: Expected: 01/28/2023 , Expires: 04/29/2023 Start: 10-25-2022 Adult depression screening assessment DEPRESSION SCREENING [facility] Start: 10-21-2022 Screening for malign ant neoplasm of cervix [facility] Start: 10-19-2022 Influenza vaccination [facility] Start: 08-01-2022 End: 10-01-2022 Bacteria identified in Unspecified specimen by Respiratory culture RESP CULTURE + STAIN Microbiology Routine Productive cough Expected: 08/01/2022, Expires: 10/01/2022 [facility] Work Phone: Comment on above: Expected: 08/01/2022 , Expires: 10/01/2022 Start: 2022 Mammography [facility] Start: 2022 Screening for malign ant neoplasm of breast [facility] Start: 06-14-2022 Adult depression screening assessment DEPRESSION SCREENING [facility] Start: 04-10-2022 End: 06-10-2022 Comprehensive metabolic 2000 panel - Serum or Plasma COMP METABOLIC PANEL Lab Routine 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) Expected: 04/10/2022, Expires: 06/10/2022 [facility] Work Phone: Comment on above: Expected: 04/10/2022 , Expires: 06/10/2022 Start: 04-10-2022 End: 06-10-2022 Thyrotropin [Units/volume] in Serum or Plasma TSH BLD Lab Routine 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) Expected: 04/10/2022, Expires: 06/10/2022 [facility] Work Phone: Comment on above: Expected: 04/10/2022 , Expires: 06/10/2022 Start: 04-10-2022 End: 06-10-2022 Thyroxine (T4) free [Mass/volume] in Serum or Plasma T4 FREE/FREE THYROX Lab Routine 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) Expected: 04/10/2022, Expires: 06/10/2022 [facility] Work Phone: Comment on above: Expected: 04/10/2022 , Expires: 06/10/2022 Start: 03-08-2022 Adult depression screening assessment DEPRESSION SCREENING [facility] Start: 02-18-2022 DEPRESSION ASSESSMENT DEPRESSION ASS ESSMENT [facility] Start: 01-25-2022 End: 03-27-2022 PAIN PANEL, UR QUANT [facility] Work Phone: Comment on above: Expected: 01/25/2022 , Expires: 03/27/2022 Start: 01-18-2022 End: 03-20-2022 Comprehensive metabolic 2000 panel - Serum or Plasma COMP METABOLIC PANEL Lab Routine 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) Expected: 01/18/2022, Expires: 03/20/2022 [facility] Work Phone: Comment on above: Expected: 01/18/2022 , Expires: 03/20/2022 Start: 01-18-2022 End: 03-20-2022 Thyrotropin [Units/volume] in Serum or Plasma TSH BLD Lab Routine 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) Expected: 01/18/2022, Expires: 03/20/2022 [facility] Work Phone: Comment on above: Expected: 01/18/2022 , Expires: 03/20/2022 Start: 01-18-2022 End: 03-20-2022 Thyroxine (T4) free [Mass/volume] in Serum or Plasma T4 FREE/FREE THYROX Lab Routine 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) Expected: 01/18/2022, Expires: 03/20/2022 [facility] Work Phone: Comment on above: Expected: 01/18/2022 , Expires: 03/20/2022 Start: 11-15-2021 End: 01-15-2022 Comprehensive metabolic 2000 panel - Serum or Plasma COMP METABOLIC PANEL Lab Routine 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) Expected: 11/15/2021, Expires: 01/15/2022 [facility] Work Phone: Comment on above: Expected: 11/15/2021 , Expires: 01/15/2022 Start: 11-15-2021 End: 01-15-2022 Thyrotropin [Units/volume] in Serum or Plasma TSH BLD Lab Routine 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) Expected: 11/15/2021, Expires: 01/15/2022 [facility] Work Phone: Comment on above: Expected: 11/15/2021 , Expires: 01/15/2022 Start: 11-15-2021 End: 01-15-2022 Thyroxine (T4) free [Mass/volume] in Serum or Plasma T4 FREE/FREE THYROX Lab Routine 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) Expected: 11/15/2021, Expires: 01/15/2022 [facility] Work Phone: Comment on above: Expected: 11/15/2021 , Expires: 01/15/2022 Start: 10-26-2021 End: 12-26-2021 Comprehensive metabolic 2000 panel - Serum or Plasma COMP METABOLIC PANEL Lab Routine 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) Expected: 10/26/2021, Expires: 12/26/2021 [facility] Work Phone: Comment on above: Expected: 10/26/2021 , Expires: 12/26/2021 Start: 10-26-2021 End: 12-26-2021 Thyrotropin [Units/volume] in Serum or Plasma TSH BLD Lab Routine 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) Expected: 10/26/2021, Expires: 12/26/2021 [facility] Work Phone: Comment on above: Expected: 10/26/2021 , Expires: 12/26/2021 Start: 10-26-2021 End: 12-26-2021 Thyroxine (T4) free [Mass/volume] in Serum or Plasma T4 FREE/FREE THYROX Lab Routine 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) Expected: 10/26/2021, Expires: 12/26/2021 [facility] Work Phone: Comment on above: Expected: 10/26/2021 , Expires: 12/26/2021 Start: 10-19-2021 Influenza vaccination [facility] Start: 09-06-2021 End: 11-06-2021 Comprehensive metabolic 2000 panel - Serum or Plasma COMP METABOLIC PANEL Lab Routine 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) Expected: 09/06/2021, Expires: 11/06/2021 [facility] Work Phone: Comment on above: Expected: 09/06/2021 , Expires: 11/06/2021 Start: 09-06-2021 End: 11-06-2021 Thyrotropin [Units/volume] in Serum or Plasma TSH BLD Lab Routine 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) Expected: 09/06/2021, Expires: 11/06/2021 [facility] Work Phone: Comment on above: Expected: 09/06/2021 , Expires: 11/06/2021 Start: 09-06-2021 End: 11-06-2021 Thyroxine (T4) free [Mass/volume] in Serum or Plasma T4 FREE/FREE THYROX Lab Routine 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) Expected: 09/06/2021, Expires: 11/06/2021 [facility] Work Phone: Comment on above: Expected: 09/06/2021 , Expires: 11/06/2021 Start: 02-18-2021 DEPRESSION ASSESSMENT DEPRESSION ASS ESSMENT [facility] Start: 10-19-2020 Influenza vaccination INFLUENZA (#1) [facility] Start: 09-08-2019 HPV TESTING HPV TESTING [facility] Start: 09-08-2019 Screening for malign ant neoplasm of cervix HPV Testing [facility] Start: 10-26-2017 PAP TESTING PAP TESTING [facility] Start: 10-26-2017 Screening for malign ant neoplasm of cervix Pap Testing [facility] Start: 06-17-2015 PNEUMOCOCCAL (2 - PP SV23 if available, else PCV20) PNEUMOCOCCAL (2 - PPSV23 if available, else PCV20) [facility] Start: 06-17-2015 PNEUMOCOCCAL (2 - PP SV23 or PCV20) PNEUMOCOCCAL (2 - PPSV23 or PCV20) [facility] Start: 08-11-2014 PNEUMOCOCCAL (2 - PP SV23 if available, else PCV20) PNEUMOCOCCAL (2 - PPSV23 if available, else PCV20) [facility] Start: 08-11-2014 PNEUMOCOCCAL (2 - PP SV23 or PCV20) PNEUMOCOCCAL (2 - PPSV23 or PCV20) [facility] Start: 08-11-2014 Pneumococcal vaccination [facility] Start: 07-12-2003 Screening for malign ant neoplasm of cervix Pap Smear [facility] Start: 2001 SHINGRIX VACCINE (1 of 2) TRINH GRIX VACCINE (1 of 2) [facility] Start: 2001 TWO PNEUMOVAX 5 YEAR S APART PRIOR TO AGE 65 (#1) TWO PNEUMOVAX 5 YEARS APART PRIOR TO AGE 65 (#1) [facility] Start: 1994 COVID-19 VACCINE (1) COVID-19 VACCIN E (1) [facility] Start: 07-12-1987 COVID-19 VACCINE (#1) COVID-19 VACCI NE (#1) [facility] Start: 01-11-1983 COVID-19 VACCINE (#1) COVID-19 VACCI NE (#1) [facility] End: 03-30-2023 CBC W Auto Differential panel - Blood CBC + DIFF Lab Routine 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 Occurrences starting 03/31/2022 until 03/30/2023 [facility] Work Phone: Comment on above: Every other week for 25 Occurrences starting 03/31/2022 until 03/30/2023 Comprehensive metabo lic 2000 panel - Serum or Plasma COMP METABOLIC PANEL Lab Routine 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) Ordered: 05/17/2021 [facility] Work Phone: Comment on above: Ordered: 05/17/2021 End: 03-30-2023 Comprehensive metabolic 2000 panel - Serum or Plasma COMP METABOLIC PANEL Lab Routine 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 Occurrences starting 03/31/2022 until 03/30/2023 [facility] Work Phone: Comment on above: Every other week for 25 Occurrences starting 03/31/2022 until 03/30/2023 End: 12-27-2022 Echocardiography ECHO Cardiology Routine Nodular sclerosing Hodgkin's lymphoma, unspecified body region (HCC) JOE (dyspnea on exertion) Chronic cough 1 Occurrences starting 12/27/2021 until 12/27/2022 [facility] Work Phone: Comment on above: 1 Occurrences starti ng 12/27/2021 until 12/27/2022 End: 09-01-2023 LUNG DIFFUSION CAPACITY (DLCO) LUNG DIFFUSION CAPACITY (DLCO) PFT Routine Chronic cough 1 Occurrences starting 08/02/2022 until 09/01/2023 [facility] Work Phone: Comment on above: 1 Occurrences starti ng 08/02/2022 until 09/01/2023 LUNG DIFFUSION CAPAC ITY (DLCO) LUNG DIFFUSION CAPACITY (DLCO) PFT Routine Chronic cough 03/28/2023 1:39 PM EST [facility] Work Phone: End: 09-01-2023 NITRIC OXIDE, EXHALED NITRIC OXIDE, EXHALED PFT Routine Bronchitis 1 Occurrences starting 08/02/2022 until 09/01/2023 [facility] Work Phone: Comment on above: 1 Occurrences starti ng 08/02/2022 until 09/01/2023 End: 07-14-2022 NM PET/CT SKULL-THIGH SUBSEQUENT NM PET/CT SKULL-THIGH SUBSEQUENT Radiology Routine Hodgkin lymphoma, unspecified Hodgkin lymphoma type, unspecified body region (HCC) 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) 1 Occurrences starting 06/14/2021 until 07/14/2022 [facility] Work Phone: Comment on above: 1 Occurrences starti ng 06/14/2021 until 07/14/2022 End: 12-15-2022 NM PET/CT SKULL-THIGH SUBSEQUENT NM PET/CT SKULL-THIGH SUBSEQUENT Radiology Routine Nodular sclerosing Hodgkin's lymphoma, unspecified body region (HCC) 1 Occurrences starting 11/15/2021 until 12/15/2022 [facility] Work Phone: Comment on above: 1 Occurrences starti ng 11/15/2021 until 12/15/2022 End: 08-17-2023 NM PET/CT SKULL-THIGH SUBSEQUENT NM PET/CT SKULL-THIGH SUBSEQUENT Radiology Routine Nodular sclerosing Hodgkin's lymphoma, unspecified body region (HCC) 1 Occurrences starting 07/18/2022 until 08/17/2023 [facility] Work Phone: Comment on above: 1 Occurrences starti ng 07/18/2022 until 08/17/2023 End: 09-21-2023 NM PET/CT SKULL-THIGH SUBSEQUENT NM PET/CT SKULL-THIGH SUBSEQUENT Radiology Routine 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) 1 Occurrences starting 08/22/2022 until 09/21/2023 [facility] Work Phone: Comment on above: 1 Occurrences starti ng 08/22/2022 until 09/21/2023 End: 01-31-2024 NM PET/CT SKULL-THIGH SUBSEQUENT NM PET/CT SKULL-THIGH SUBSEQUENT Radiology Routine 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) 1 Occurrences starting 01/01/2023 until 01/31/2024 [facility] Work Phone: Comment on above: 1 Occurrences starti ng 01/01/2023 until 01/31/2024 End: 09-01-2023 SPIROMETRY - BASELINE AND POST DILATOR SPIROMETRY - BASELINE AND POST DILATOR PFT Routine Chronic cough 1 Occurrences starting 08/02/2022 until 09/01/2023 [facility] Work Phone: Comment on above: 1 Occurrences starti ng 08/02/2022 until 09/01/2023 SPIROMETRY - BASELIN E AND POST DILATOR SPIROMETRY - BASELINE AND POST DILATOR PFT Routine Chronic cough 03/28/2023 1:39 PM EST [facility] Work Phone: T4 FREE/FREE THYROX T4 FREE/FREE THYROX Lab Routine 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) Ordered: 05/17/2021 [facility] Work Phone: Comment on above: Ordered: 05/17/2021 Thyrotropin [Units/volume] in Serum or Plasma TSH BLD Lab Routine 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) Ordered: 05/17/2021 [facility] Work Phone: Comment on above: Ordered: 05/17/2021 End: 03-30-2023 Thyrotropin [Units/volume] in Serum or Plasma TSH BLD Lab Routine 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 Occurrences starting 03/31/2022 until 03/30/2023 [facility] Work Phone: Comment on above: Every other week for 25 Occurrences starting 03/31/2022 until 03/30/2023 End: 03-30-2023 Thyroxine (T4) free [Mass/volume] in Serum or Plasma T4 FREE/FREE THYROX Lab Routine 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 Occurrences starting 03/31/2022 until 03/30/2023 [facility] Work Phone: Comment on above: Every other week for 25 Occurrences starting 03/31/2022 until 03/30/2023 [facility] Immunizations Immunization Date Immunization Notes Care Provider Kun snyder 12-16-2014 influenza, injectabl e, quadrivalent, preservative free Sylvia Gross MARINE ENGINE MACHINIST APPRENTICE.RECOVERY AUDITOR Work Phone: [facility] 12-16-2014 influenza virus vacc ine, unspecified formulation Charlee Zhao MARINE ENGINE MACHINIST APPRENTICE.RECOVERY AUDITOR Work Phone: [facility] 06-16-2014 hepatitis A and hepa titis B vaccine Sylvia Gross MARINE ENGINE MACHINIST APPRENTICE.RECOVERY AUDITOR Work Phone: [facility] 06-16-2014 pneumococcal conjuga te vaccine, 13 valent Sylvia Gross MARINE ENGINE MACHINIST APPRENTICE.RECOVERY AUDITOR Work Phone: [facility] 03-11-2014 diphtheria and tetan us toxoids, adsorbed for pediatric use Sylvia Gross MARINE ENGINE MACHINIST APPRENTICE.RECOVERY AUDITOR Work Phone: [facility] 03-11-2014 haemophilus influenz ae type b vaccine, PRP-OMP conjugate Sylvia Gross MARINE ENGINE MACHINIST APPRENTICE.RECOVERY AUDITOR Work Phone: [facility] 03-11-2014 meningococcal polysaccharide vaccine (MPSV4) Sylvia Gross MARINE ENGINE MACHINIST APPRENTICE.RECOVERY AUDITOR Work Phone: [facility] 03-11-2014 pneumococcal conjuga te vaccine, 13 valent Sylvia Gross MARINE ENGINE MACHINIST APPRENTICE.RECOVERY AUDITOR Work Phone: [facility] 03-11-2014 poliovirus vaccine, inactivated Sylvia Gross MARINE ENGINE MACHINIST APPRENTICE.RECOVERY AUDITOR Work Phone: [facility] 03-11-2014 tetanus toxoid, adsorbed Josi ka Gross MARINE ENGINE MACHINIST APPRENTICE.RECOVERY AUDITOR Work Phone: [facility] 03-11-2014 tetanus toxoid, redu jessica diphtheria toxoid, and acellular pertussis vaccine, adsorbed Sylvia Gross MARINE ENGINE MACHINIST APPRENTICE.RECOVERY AUDITOR Work Phone: [facility] 12-21-2013 diphtheria and tetan us toxoids, adsorbed for pediatric use Sylvia Gross MARINE ENGINE MACHINIST APPRENTICE.RECOVERY AUDITOR Work Phone: [facility] 12-21-2013 haemophilus influenz ae type b vaccine, PRP-OMP conjugate Sylvia Gross MARINE ENGINE MACHINIST APPRENTICE.RECOVERY AUDITOR Work Phone: [facility] 12-21-2013 hepatitis A and hepa titis B vaccine Sylvia Gross MARINE ENGINE MACHINIST APPRENTICE.RECOVERY AUDITOR Work Phone: [facility] 12-21-2013 influenza, injectabl e, quadrivalent, preservative free Sylvia Gross MARINE ENGINE MACHINIST APPRENTICE.RECOVERY AUDITOR Work Phone: [facility] 12-21-2013 pneumococcal conjuga te vaccine, 13 valent Sylvia Gross MARINE ENGINE MACHINIST APPRENTICE.RECOVERY AUDITOR Work Phone: [facility] 12-21-2013 poliovirus vaccine, inactivated Sylvia Gross MARINE ENGINE MACHINIST APPRENTICE.RECOVERY AUDITOR Work Phone: [facility] 10-14-2013 haemophilus influenz ae type b vaccine, PRP-OMP conjugate Sylvia Gross MARINE ENGINE MACHINIST APPRENTICE.RECOVERY AUDITOR Work Phone: [facility] 10-14-2013 hepatitis A and hepa titis B vaccine Sylvia Gross MARINE ENGINE MACHINIST APPRENTICE.RECOVERY AUDITOR Work Phone: [facility] 10-14-2013 Meningococcal Groups C and Y and Haemophilus b Tetanus Toxoid Conjugate Vaccine Sylvia Gross MARINE ENGINE MACHINIST APPRENTICE.RECOVERY AUDITOR Work Phone: [facility] 10-14-2013 pneumococcal conjuga te vaccine, 13 valent Sylvia Gross MARINE ENGINE MACHINIST APPRENTICE.RECOVERY AUDITOR Work Phone: [facility] 10-14-2013 poliovirus vaccine, inactivated Sylvia Gross MARINE ENGINE MACHINIST APPRENTICE.RECOVERY AUDITOR Work Phone: [facility] 10-14-2013 tetanus toxoid, redu jessica diphtheria toxoid, and acellular pertussis vaccine, adsorbed Sylvia Gross MARINE ENGINE MACHINIST APPRENTICE.RECOVERY AUDITOR Work Phone: [facility] 09-01-2010 hepatitis B vaccine, adult dosage Sylvia Gross MARINE ENGINE MACHINIST APPRENTICE.RECOVERY AUDITOR Work Phone: [facility] 04-04-2010 hepatitis B vaccine, adult dosage Sylvia Gross MARINE ENGINE MACHINIST APPRENTICE.RECOVERY AUDITOR Work Phone: [facility] 03-04-2010 hepatitis B vaccine, adult dosage Sylvia Gross MARINE ENGINE MACHINIST APPRENTICE.RECOVERY AUDITOR Work Phone: [facility] 11-11-2007 hepatitis B vaccine, pediatric or pediatric/adolescent dosage Sylvia Gross MARINE ENGINE MACHINIST APPRENTICE.RECOVERY AUDITOR Work Phone: [facility] 10-14-2007 hepatitis B vaccine, pediatric or pediatric/adolescent dosage Sylvia Mancilla APRN.RECOVERY AUDITOR Work Phone: [facility] Payers Date Payer Category Payer Self-pay [id number] 2020 Medicaid MEDICAID [facility] MEDICAID [id number] 2020-Present [phone] [address] [address] Medicaid [id number] 2020 Medicaid [id number] 2014 Medicare MEDICARE MEDICAR E A AND B [id number] 2014-Present [phone] [address] [address] [place] [address] Medicare [id number] 2014 Medicare [id number] 1982 Unknown [id number] 1982 Unknown [id number] 1982 Unknown [id number] 1982 Unknown [id number] 1982 Unknown [id number] 1959 Medicaid [id number] 1959 Medicare [id number] 1959 Medicare [id number] Unknown [id number] Social History Date Type Detail Facility Start: 01-28-2012 End: 12-31-2022 Tobacco smoking status NHIS Ex-smoker [facility] End: 01-18-2012 History of tobacco use Current smoker [facility] End: 01-18-2012 History of tobacco use Cigarette Smoker [facility] Start: 01-28-2012 End: 12-31-2022 Tobacco use and exposure Smokeless tobacco non-user [facility] Start: 03-15-2021 End: 03-28-2023 Alcohol intake Current drinker of alcohol (finding) [facility] Start: 03-15-2021 End: 07-18-2022 Alcohol intake [facility] Start: 11-18-2019 History SDOH Alcohol Frequency 2 [facility] Start: 11-18-2019 History SDOH Alcohol Std Drinks 1 [facility] Start: 03-18-2017 History SDOH Alcohol Comment 2 drinks per month [facility] Start: 1980 Sex Assigned At Female [facility] Start: 03-20-2021 End: 12-27-2021 Exposure to SARS-CoV-2 (event) Not sure [facility] Start: 01-06-2022 End: 01-16-2022 Exposure to SARS-CoV-2 (event) Unable to assess [facility] Start: 07-18-2022 End: 08-01-2022 Tobacco use panel [facility] Adult Depression Screening Assessment 0 [facility] Start: 04-17-2021 Gender identity Identifies as female gender (finding) [facility] Start: 04-17-2021 Sexual orientation Heterosexual (fin susanne) [facility] How often to you hav e a drink containing alcohol? Monthly or less [facility] How many standard dr inks containing alcohol do you have on a typical day? 1 or 2 [facility] How often do you hav e 6 or more drinks on 1 occasion? Never [facility] History of tobacco use Passive smoker [facility] Start: 1980 Sex Assigned At Not on file [facility] Medical Equipment Procedure Code Equipment Code Equipment Origin al Text Equipment Identifier Dates Port Inf 1 Lum Attach Cath - [id number] Start: 01-31-2012 Comment on above: Description: [...] Jeny Robert MA documented in this encounter [facility] 03-29-2023 History of Presen t illness Narrative Subjective Patient ID: Celso Potts is a 42 y.o. female who presents for covid +. Pt seen via telehealth using real time, two way, audio and video communication in place of an office visit. Pt gave verbal consent to this visit. Pt is currently located in her home in [place]. --- Appt for Covid + --- Onset [...] capsule; Refill: 0 documented in [address] encounter [facility] 03-28-2023 Instructions Kylie Nunes APRN.PEDRO - 03/28/2023 [...] any runs out. documented in this encounter [facility] 03-28-2023 History of Presen t illness Narrative [...] difficulty swallowing and persistent hoarseness. Refer to [facility] for repeat flex scope and assistance [...] or chills. Electronically signed by Kylie Nunes APRN.[facility] Respiratory [place], [facility] March 28, 2023 2:55 PM Time [...] 10/14/2013 12/21/2013 03/11/2014 Haemophilus influenzae b-meningococcal bivalent (Edy-BbaUH-WV) vaccine (MENHIBRIX) 10/14/2013 diphtheria tetanus (DT) vaccine, [...] of air trapping, less conspicuous. Kylie Nunes APRN.RECOVERY AUDITOR March 28, 2023 This note was partially generated using Dragon voice recognition system, and there may be some incorrect words, spellings, and punctuation that were not noted in checking the note before saving. documented in this encounter [facility] 03-28-2023 Procedure note Associated Ord er(s): NITRIC [...] TIME: 1:59 PM documented in this encounter [facility] 03-28-2023 History of Presen t illness Narrative PULM FUNCTION SMARTBLOCK: Provider: Ella Chan APRN.CNP Spirometry w/BD: 1 DLCO: 1 Exhaled Nitric Oxide: 1 documented in this encounter [facility] 01-29-2023 Evaluation note Encounter Date Diagnosis Assessment [...] no improvement in 2 to 3 days [facility] Other 12-11-2023 Miscellaneous Notes* Telephone Encounter - Radha Song RN - 01/28/2023 1:47 PM EST Pt here for PET [facility] labs for office f/u next week Please sign pended cortisol level if needed for f/u. Pt requested level Thank You! Radha Song RN documented in this encounterGreene [facility] Hospital11-20-2023 Miscellaneous Notes* Telephone Encounter - Kristina Pete [...] advise. Kristina Pete RN documented in this encounterGreene Memorial Hospital11-16-2023 Miscellaneous Notes* Telephone Encounter - Anh Bowles [...] are back to baseline. documented in this encounterGreene Memorial Hospital11-14-2023 History of Present illness Narrative* Alexsander Ledezma MD - 01/01/2023 7:39 AM EST PATIENT NAME: Celso Potts DATE: 01/01/2023 PRIMARY CARE PHYSICIAN: Jose Vail MD OTHER PHYSICIANS: Dr. Cyn Ramires; Dr. Gurpreet Unger; Juan Francisco Hutchinson, PEDRO ([facility] Pall Med), Dr. Estrada Del Valle ([facility] Rad Onc), Dr. Summer Carver ([facility] Pulmonary), Dr Jaxson Gamez ([facility] Dermatology) CC: This is a 42 year [...] C No.3 (B COMPLEX PLUS VITAMIN C) 78-15-37-5-300 mg cap^Take 1 tablet by mouth once [...] PCP. Alexsander Ledezma MD documented in this encounterGreene Memorial Hospital11-02-2023 NoteHNO ID: [id number] Author: Juan Francisco Hutchinson APRN.RECOVERY AUDITOR Service: ? Author Type: Nurse Practitioner Type: [...] not follow up as it was in [place] and not close to her home. Keeps well hydrated because dehydration has always made these symptoms worse. She is taking gabapentin 600 mg TID. Also taking oxycodone 10 mg 3-4 times per day Denies confusion, oversedation, myoclonus, constipation Fatigued but does not sleep during the day Going out with friends and keeping busy as much as she can Modified ESAS (Buckhorn Symptom Assessment Scale) Information Provided By: Patient [...] activities of daily living, (more content not included)...[facility]10[facility]30[facility] Miscellaneous Notes * Telephone Encounter - Mitzi Brown - 12/17/2022 2:33 PM EDT Called patient and rescheduled with PFT's to January 03 and FU with SARAH documented in this encounterGreene Memorial Hospital09-18-2023 Miscellaneous Notes* Telephone Encounter - Juan Francisco Hutchinson APRN.PEDRO - 11/05/2022 4:38 PM EDT PDMP website checked and validated. All prescriptions have been APPROPRIATELY filled. No suspiciousactivity was identified. 11/05/2022 by Juan Francisco Hutchinson APRN.RECOVERY AUDITOR Rx sent - earliest fill 11/09/22 Juan Francisco Hutchinson APRN.RECOVERY AUDITOR * Telephone Encounter - Kylie Mosher RN [...] advise. Kylie Mosher RN documented in this encounterGreene Memorial Hospital08-31-2023 Miscellaneous Notes* Telephone Encounter - Kylie Mosher RN - 10/18/2022 1:34 PM EDT Prior Authorization Documentation Prior authorization requested via Covermymeds for the following medication: Medication: Lyrica 100 mg capsules Approved and authorizes your coverage from 02/18/2022 - 02/17/2023, Insurance Company Name: [employer] Phone number: [phone] Patient ID number: [id number] Osorio [id number] Pharmacy Name: [facility] Telephone number: [phone] Kylie Mosher RN October 18, 2022 1:38 PM documented in this encounterGreene Memorial Hospital08-31-2023 NoteHNO ID: [id number] Author: Juan Francisco Hutchinson APRN.PEDRO Service: ? [...] Denies confusion, oversedation, myoclonus, constipation. Modified ESAS (Buckhorn Symptom Assessment Scale) Information Provided By: Patient [...] was identified. 10/18/2022 by Juan Francisco Hutchinson APRN.RECOVERY AUDITOR Urine Screen Lab Results Component Value Date UAMPH Negative 02/24/2021 UBARB2 Negative 02/24/2021 UBENZ Negative 02/24/2021 UQBUPRE <20 01/25/2022 UQNORBUP <20 01/25/2022 UCOC2 Negative 02/24/2021 UQCANN <1 (more content not included)...[facility]-31-2023 NoteHNO ID: [id number] Author: Zoila Pedersen RN Service: ? Author [...] Zoila Pedersen RN October 18, 2022 11:09 [facility]08-31-2023 Instructions* Patient Instructions* Juan Francisco Hutchinson APRN.CNP - 10/18/2022 11:50 AM EDT Juan Francisco Hutchinson CNP Department of Palliative and Supportive Care Palliative Care - Specialty services in symptom management and support For questions or prescription refills, call: [phone] Saturday - Saturday 9AM-5PM ERVIN Corrales, RN - Concrete Block Molder Please call 3-5 days in advance for medication refills Evenings, Weekends, Holidays: [phone] (ask for palliative medicine on-call provider) For appointments, cancellations or reschedule, call: [phone] documented in this encounterGreene Memorial Hospital08-31-2023 History of Present illness Narrative* Juan Francisco [...] Denies confusion, oversedation, myoclonus, constipation. Modified ESAS (Buckhorn Symptom Assessment Scale) Information Provided By: Patient [...] was identified. 10/18/2022 by Juan Francisco Hutchinson APRN.RECOVERY AUDITOR Urine Screen Lab Results Component Value Date [...] Urine pH, Pain Ocasio 6.3 02/24/2021 Specific [place],Ur Pain Ocasio 1.012 02/24/2021 Oxidants,Ur 46 02/24/2021 [...] may have been partially generated using the [employer] voice recognition system. While every effort was made to correct voice recognition errors, kindly be aware that some errors may occasionally occur. documented in this encounterGreene Memorial Hospital08-31-2023 Instructions* Patient Instructions* Zoila Pedersen RN - 10/18/2022 11:10 AM EDT Use warm compresses to left inner thigh daily for comfort documented in this encounterGreene Memorial Hospital08-31-2023 History of Present illness Narrative* Zoila Pedersen [...] 18, 2022 11:09 AM documented in this encounterGreene Memorial Hospital08-22-2023 Miscellaneous Notes* Telephone Encounter - Kylie Mosher [...] advise. Kylie Mosher RN documented in this encounterGreene Memorial Hospital08-21-2023 Miscellaneous Notes* Telephone Encounter - Flori Ford [...] advise. Flori Ford RN documented in this encounterGreene Memorial Hospital07-27-2023 NoteHNO ID: [id number] Author: Summer Carver MD Service: ? Author [...] PFT: SPIROMETRY - BASELINE AND POST DILATOR ([id number]) - ordered on 11/03/19 [facility] [id number] [facility] [place] [address] Test Date: 2019-11-03 Pat Name: CELSO POTTS Department: Room: Gender: Female Door Assembler: Perla Baker : 1980 Requested By: Order Number: [id number] Reading MD: Justin Moreno Interpretive Statements PRE [...] 38 .4 FIVC L 2.35 2.35 0.0 IPR01-44% L/s 2.36 2.36 3.81 5.55 61.8 3.00 78.7 27.2 CHI919% sec 7.37 5.99 -18.7 FETPEF sec 0.07 0.11 68.2 VBe%FV % 4 5 25.4 VBEex L 0.10 0.12 23.6 FIVC/FVC % 96 98 1.6 ----- ----- ----- ----- ----- ----- ----- ----- FRCpl L 1.31 2.36 3.43 4.49 38.3 ERV L 0.44 (more content not included)...[facility]07-27-[facility] History of Present illness Narrative* Summer Carver [...] PFT: SPIROMETRY - BASELINE AND POST DILATOR ([id number]) - ordered on 11/03/19 [facility] [id number] [facility] [place] [address] Test Date: 2019-11-03 Pat Name: CELSO POTTS Department: Room: Gender: Female Door Assembler: Pelra Baker : 1980 Requested By: Order Number: [id number] Reading MD: Justin Moreno Interpretive Statements PRE AND POST BD JAE: ATS/ERS acceptability and repeatability standards for spirometry met. All lung volume repeatability criteria met. ATS acceptability and repeatability standards for DLCO met. DLCO is not hemoglobin corrected. Medications and Allergies were reviewed for possible drug interactions per policy. No contraindications or sensitivities were no claeb. Meds taken: Albuterol 17 hours before testing. [...] 38 .4 FIVC L 2.35 2.35 0.0 STQ27-16% L/s 2.36 2.36 3.81 5.55 61.8 3.00 78.7 27.2 YZY867% sec 7.37 5.99 -18.7 FETPEF sec 0.07 [...] , PFT that day Summer Carver MD, [facility] Respiratory [place] documented in this encounterGreene Memorial Hospital07-05-2023 NoteHNO ID: [id number] Author: Cyn Ramires MD Service: ? Author [...] pneumonitis She saw Dr. Alejandro sarmiento at [facility] for 2nd opinion cell([id number]) She agreed with out plan and recommended [...] discomfort no short (more content not included)... [facility]07-05-[facility] Instructions* Patient Instructions* Gunjan Joya LPN - 08/22/2022 2:50 PM EDT Follow up with Dr. Ramires in the beginning of November Patient will schedule PET scan documented in this encounterGreene Memorial Hospital07-05-2023 History of Present illness Narrative* Cyn Ramires [...] pneumonitis She saw Dr. Alejandro sarmiento at [facility] for 2nd opinion cell([id number]) She agreed with out plan and recommended [...] DATA CBC, CMP, TSH were reviewed in [facility]. PET scan report and images were reviewed in [facility]. Results werediscussed with patient and radiation oncology [...] FACP CC: Jose Parra documented in this encounterGreene Memorial Hospital06-27-2023 Miscellaneous Notes* Telephone Encounter - Juan Francisco Hutchinson APRN.RECOVERY AUDITOR - 08/14/2022 1:29 PM EDT [facility] and validated. All prescriptions have been APPROPRIATELY filled. No suspiciousactivity was identified. 08/14/2022 by Juan Francisco Hutchinson APRN.RECOVERY AUDITOR Rx sent Juan Francisco Hutchinson APRN.RECOVERY AUDITOR * Telephone Encounter - Kristina Pete RN - 08/13/2022 5:21 PM EDT Patient phones requesting refills as follows: Requested Prescriptions Pending Prescriptions Disp Refills oxyCODONE IR (ROXICODONE) 10 mg tab 120 tablet 0 Sig: Take 1 tablet by mouth every 4 hours as needed (moderate-severe cancer pain) for up to 30 days. Please review and advise. Kristina Pete RN documented in this encounterGreene Memorial Hospital06-27-2023 NoteHNO ID: [id number] Author: DIMA Julien) Service: ? Author Type: [...] 1109 PATIENT DISCHARGED TO: Ambulatory patient, left [place] department area. A Diagnostic radioactive procedure has taken place, with no further precautions necessary other than routine body substance precautions. More information regarding radiation safety can be found using this link: [email or web address] SIGNATURE: RT Anaya(R) PATIENT NAME: Celso Potts DATE: August 14, 2022 TIME: 11:23 AM PAGER/CONTACT #:[facility]06-27-2023 NoteHNO ID: [id number] Author: Radha Song RN Service: ? Author [...] IV SITE APPEARANCE: Clean,Dry and Intact SIGNATURE: Radah Song RN PATIENT NAME: Celso Potts DATE: August 14, 2022 TIME: 10:58 [facility]06-16-2023 Miscellaneous Notes* Telephone Encounter - Ella Chan [...] her at another time. documented in this encounterGreene Memorial Hospital06-14-2023 NoteHNO ID: [id number] Author: Ella Chan APRN.CNP Service: ? Author [...] or chills. Electronically signed by Ella Chan APRN.[facility] Respiratory [place], [facility] July 31, 2022 HPI: Celso Potts [...] CT CHEST WO IVCON (more content not included)...[facility] 08-01-2022 Instructions* Patient Instructions* Ella Chan APRN.CNP [...] sample in cup provided. documented in this encounterGreene Memorial Hospital06-14-2023 History of Present illness Narrative* Ella Chan [...] or chills. Electronically signed by Ella Chan APRN.[facility] Respiratory [place], [facility] July 31, 2022 HPI: Celso Potts [...] listed in the HPI Modified Medical Research [place] Dyspnea Scale (MMRC) I only get breathless [...] C No.3 (B COMPLEX PLUS VITAMIN C) 15-23-36-5-300 mg cap Take 1 tablet by mouth [...] Sclerosis Mother Coronary Artery Disease Maternal Grandfather [place] age 36 Coronary Artery Disease Paternal Grandfather [...] 10/14/2013 12/21/2013 03/11/2014 Haemophilus influenzae b-meningococcal bivalent (Cls-GelZB-ME) vaccine (MENHIBRIX) 10/14/2013 diphtheria tetanus (DT) vaccine, [...] DIAGNOSTICS & IMAGING: (Reviewed & updated by ne 07/31/2022) PFTs 11/03/2019 IMPRESSION: Spirometry shows no [...] fatty infiltration. No evidence of adrenal mass.. Spindle Setter (topogram) images: No additional findings. YOGESH DAVIS [...] unlikely to be related to lymphoma RESULT: Spindle Setter (topogram) images: No additional findings. - Mediastinum [...] which included preparing to see the patient, rspo-db-rrhb patient care, completing clinical documentation, obtaining and/or reviewing separately obtained history, performing a medically appropriate examination, counseling and educating the pat ient/family/caregiver, and ordering medications, tests, or procedures. documented in this encounterGreene Memorial Hospital06-13-2023 NoteHNO ID: [id number] Author: Nova Bridges APRN.CNP Service: ? Author [...] C No.3 (B COMPLEX PLUS VITAMIN C) 53-13-07-5-300 mg cap Take 1 tablet by mouth [...] -weight loss and smoking (more content not included)...[facility]06-01-2023 NoteHNO ID: [id number] Author: Juan Francisco Hutchinson APRN.RECOVERY AUDITOR Service: ? Author Type: Nurse Practitioner Type: [...] bilateral lung rodriguez. Finished steroids and antibiotics. Brandt very good after this but then as [...] relaxants. Denies confusion, oversedation, myoclonus. Modified ESAS (Buckhorn Symptom Assessment Scale) Information Provided By: Patient [...] Yes Prescribed Morphine Eq (more content not included)...[facility] 07-19-2022 History of Present illness Narrative* Juan Francisco Hutchinson APRN.RECOVERY AUDITOR - 07/19/2022 8:15 AM EDT PALLIATIVE MEDICINE [...] bilateral lung rodriguez. Finished steroids and antibiotics. Brandt very good after this but then as [...] relaxants. Denies confusion, oversedation, myoclonus. Modified ESAS (Buckhorn Symptom Assessment Scale) Information Provided By: Patient [...] was identified. 07/19/2022 by Juan Francisco Hutchinson APRN.RECOVERY AUDITOR Urine Screen Lab Results Component Value Date [...] Urine pH, Pain Ocasio 6.3 02/24/2021 Specific [place],Ur Pain Ocasio 1.012 02/24/2021 Oxidants,Ur 46 02/24/2021 [...] may have been partially generated using the [employer] voice recognition system. While every effort was made to correct voice recognition errors, kindly be aware that some errors may occasionally occur. documented in this encounterGreene Memorial Hospital05-31-2023 NoteHNO ID: [id number] Author: Cyn Ramires MD Service: ? Author [...] pneumonitis She saw Dr. Alejandro sarmiento at [facility] for 2nd opinion cell([id number]) She agreed with out plan and recommended [...] Still have stable chest (more content not included)...[facility] 07-18-2022 Miscellaneous Notes* Telephone Encounter - Flori Ford RN - 07/18/2022 12:09 PM EDT My chart appointment question response sent. Flori Ford RNCC Test Engine Operator documented in this encounterGreene Memorial Hospital05-31-2023 History of Present illness Narrative* Cyn Ramires [...] pneumonitis She saw Dr. Alejandro sarmiento at [facility] for 2nd opinion cell([id number]) She agreed with out plan and recommended [...] DATA CBC, CMP, TSH were reviewed in [facility]. PET scan report and images were reviewed in [facility]. Results werediscussed with patient and radiation oncology [...] FACP CC: Jose Parra documented in this encounterGreene Memorial Hospital05-31-2023 Instructions* Patient Instructions* Gunjan Joya LPN - 07/18/2022 11:26 AM EDT Follow up with Dr. Ramires 08/14 at 9:50a PET scan a few days prior documented in this encounterGreene Memorial Hospital05-30-2023 NoteHNO ID: [id number] Author: RT Jabier(R) Service: ? Author Type: [...] BY: RT Jabier(R) July 17, 2022 1:24 [facility]05-30-2023 History of Present illness Narrative* RT Jabier(R) [...] 17, 2022 1:24 PM documented in this encounterGreene Memorial Hospital05-30-2023 Miscellaneous Notes* Telephone Encounter - Juan Francisco [...] advise. Kylie Mosher RN documented in this encounterGreene Memorial Hospital04-28-2023 Miscellaneous Notes* Telephone Encounter - Ella Chan [...] in stock and I spoke with pharmacy services representative [place] who states they have 1 box in stock. Please advise. * Telephone Encounter - HILARY Dougherty - 06/13/2022 1:16 PM EDT Celso Potts called today. : 1980 Allergies: Chlorhexidine and Sulfa (Sulfonamide Antibiotics) (home) [phone] (cell) Reason for call: Patient states that at the last office visit 06/04/22 the provider was going to call in DUONEB. She states it was not called in . Please advise. e- [id number] [place] [address] - [address] [facility] - [phone] [place] [id number] Patient last appointment: 06/04/2022 The patients preferred pharmacy has been captured for this encounter? yes HILARY Dougherty documented in this encounterGreene Memorial Hospital04-25-2023 NoteHNO ID: [id number] Author: Cyn Ramires MD Service: ? Author Type: Physician Type: Progress Notes Filed: 06/12/2022 11:37 AM Note Text: [facility] This visit is a Virtual MyChart video visit encounter which required patient-provider interaction for the medical decision making as documented below. Persons Present: patient I have communicated my name and active licensure. The patient?s identity and physical location were verified at the time of this visit. Celso Potts or their legal pharmacy services representative has been informed of the risks [...] PET scan and may consider resuming [facility] Miscellaneous Notes* Telephone Encounter - Juan [...] advise. Kylie Mosher RN documented in this encounterGreene Memorial Hospital04-25-2023 Instructions* Patient Instructions* Gunjan Joya LPN - 06/12/2022 11:09 AM EDT Pt will schedule CT Follow up with Dr. Ramires 07/17 or 07/18 Schedule treatment 07/24 documented in this encounterGreene Memorial Hospital04-25-2023 Nurse Note* Vannessa Lopez Ma - 06/12/2022 10:50 AM EDT Called patient and got the voice mail. Left message to remind patient about the vv scheduled today at 10:50 am with documented in this encounterGreene Memorial Hospital04-25-2023 History of Present illness Narrative* Cyn Ramires MD - 06/12/2022 10:45 AM EDT [facility] VISIT This visit is a Virtual [place] video visit encounter which required patient- provider interaction for the medical decision making as documented below. Persons Present: patient I have communicated my name and active licensure. The patient s identity and physical location wereverified at the time of this visit. Celso Potts or their legal pharmacy services representative has been informed ofthe risks and benefits of -- and alternatives to -- treatment through a remote evaluation and consents to proceed with the evaluation remotely. Total Time Spent: 5-10 minutes on this telephone encounter HISTORY REVIEWED (electronic chart updated): - medical history - medications - allergies Interval history: Patient tried to log into [facility] video visit virtual visit. Was not able [...] resuming Cyn Ramires MD documented in this encounterGreene Memorial Hospital04-17-2023 NoteHNO ID: [id number] Author: Ella Chan APRN.RECOVERY AUDITOR Service: ? Author Type: Nurse Practitioner Type: [...] or chills. Electronically signed by Ella Chan APRN.[facility] Respiratory [place], [facility] June 04, 2022 HPI: Celso Potts [...] palpitations, CP, lower ex (more content not included)...[facility]04-13-2023 NoteHNO ID: [id number] Author: Katarzyan Dover, RT(R) Service: Radiology Author Type: Technologist [...] BY: RT Belkis(Junior) May 31, 2022 7:59 [facility]04-13-2023 History of Present illness Narrative* Katarzyna Dover [...] 31, 2022 7:59 AM documented in this encounterGreene Memorial Hospital04-04-2023 NoteHNO ID: [id number] Author: Cyn Ramires MD Service: ? Author [...] pneumonitis She saw Dr. Alejandro sarmiento at [facility] for 2nd opinion cell([id number]) She agreed with out plan and recommended [...] rare ETOH. single a (more content not included)...[facility]04-03-2023 NoteHNO ID: [id number] Author: Estrada Del Valle MD Service: ? Author Type: Physician Type: Progress Notes Filed: 05/21/2022 9:29 AM Note Text: No show. Estrada Del Valle MD, MSc, MRCP, FRSOCO, ACER Radiation Oncology Staff Physician May 21, 2022 9:28 [facility]04-03-2023 History of Present illness Narrative* Estrada Del Valle MD - 05/21/2022 9:28 AM EDT No show. Estrada Del Valle MD, MSc, MRCP, LANE, ACER Radiation Oncology Staff Physician May 21, 2022 9:28 AM documented in this encounterGreene Memorial Hospital03-08-2023 Miscellaneous Notes* Telephone Encounter - Maye Elder [...] questions or concerns or Radiation Oncology Fellow Sheepskin Pickler after 5pm and on weekends for urgent issues. Patient verbalized understanding of when to seek medical attention and after hours number protocol. Follow up appointment: Reminded patient of virtual visit on 05/18/2022 with Estrada Del Valle M.D. Maye MUELLER, RN documented in this encounterGreene Memorial Hospital03-06-2023 NoteHNO ID: [id number] Author: Juan Francisco Hutchinson APRN.RECOVERY AUDITOR Service: ? Author Type: Nurse Practitioner Type: [...] as weather changes to spring. Modified ESAS (Buckhorn Symptom Assessment Scale) Information Provided By: Patient [...] Urine Panel: Lab Results (more content not included)...[facility]03-06-2023 Instructions * Patient Instructions* Juan Francisco Hutchinson APRN.PEDRO - 04/23/2022 10:30 AM EST Juan Francisco Hutchinson CNP Department of Palliative and Supportive Care Palliative Care - Specialty services in symptom management and support For questions or prescription refills, call: [phone] Saturday - Saturday 9AM-5PM ERVIN Corrales, RN - Concrete Block Molder Please call 3-5 days in advance for medication refills Evenings, Weekends, Holidays: [phone] (ask for palliative medicine on-call provider) For appointments, cancellations or reschedule, call: [phone] documented in this encounterGreene Memorial Hospital03-06-2023 History of Present illness Narrative* Juan Francisco [...] as weather changes to spring. Modified ESAS (Buckhorn Symptom Assessment Scale) Information Provided By: Patient [...] was identified. 04/23/2022 by Juan Francisco Hutchinson APRN.RECOVERY AUDITOR Urine Screen Lab Results Component Value Date [...] Urine pH, Pain Ocasio 6.3 02/24/2021 Specific [place],Ur Pain Ocasio 1.012 02/24/2021 Oxidants,Ur 46 02/24/2021 [...] 3 Months in person Juan Francisco Hutchinson APRN.RECOVERY AUDITOR April 23, 2022 9:56 AM This note may have been partially generated using the [employer] voice recognition system. While every effort was made to correct voice recognition errors, kindly be aware that some errors may occasionally occur. documented in this encounterGreene Memorial Hospital03-03-2023 Miscellaneous Notes* Telephone Encounter - Maye Elder [...] M.D. Maye MUELLER, RN documented in this encounterGreene Memorial Hospital02-27-2023 Miscellaneous Notes* Telephone Encounter - Juan Francisco Hutchinson APRN.CNP - 04/16/2022 1:38 PM EST PDMP website checked and validated. All prescriptions have been APPROPRIATELY filled. No suspiciousactivity was identified. 04/16/2022 by Juan Francisco Hutchinson APRN.RECOVERY AUDITOR Rx sent Juan Francisco Hutchinson APRN.RECOVERY AUDITOR * Telephone Encounter - Kylie Mosher RN [...] advise. Kylie Mosher RN documented in this encounterGreene Memorial Hospital02-22-2023 NoteHNO ID: [id number] Author: Estrada Del Valle MD Service: Radiation Oncology Author Type: Physician Type: Progress Notes Filed: 05/07/2022 3:36 PM Note Text: CELSO POTTS [id number] 04/11/2022 [facility] Department of Radiation Oncology [facility] RADIATION ONCOLOGY: COMPLETION NOTE DATE OF SIMULATION: [...] up in 6 weeks. Resident Physician Evy Patrciio M.D. Staff Physician Estrada Del Valle M.D 31:47 PM Electronically Signed cc: Jose Vail MD [id number] [place] [address] [place] [id number] [address] [facility] [address]RdslrypqdMartin [facility]02-[facility]-2023 History of Present illness Narrative* Estrada Del Valle MD - 04/11/2022 12:00 AM EST CELSO POTTS [id number] 04/11/2022 [facility] Department of Radiation Oncology [facility] RADIATION ONCOLOGY: COMPLETION NOTE DATE OF SIMULATION: [...] PM Electronically Signed cc: Jose Vail MD [address] [place] [address] [place] [address] [address] [facility] [address] documented in this encounterGreene Memorial Hospital02-21-2023 NoteHNO ID: [id number] Author: Cyn Ramires MD Service: ? Author [...] pneumonitis She saw Dr. Alejandro sarmiento at [facility] for 2nd opinion cell([phone]) She agreed with out plan and recommended [...] appetite Still have s (more content not included)...[facility]02-17-2023 NoteHNO ID: [id number] Author: Estrada Del Valle MD Service: ? [...] Evy Patricio MD Radiation Oncology Resident (PGY-5) [id number] I have personally participated in the osorio components of the case and agree with the above findings: Treatment chart checked: YES Patient treatment site reviewed and verified: YES Setup images reviewed and current: YES Signed by: Estrada Del Valle [facility]02-06-2023 History of Present illness Narrative* Estrada Del [...] I spent over 50% of a total taht-ex-kxhe time of 60-80 minutes, counseling/coordinating patient care. Estrada Del Valle MD, MSc, MRCP, FRCR, DABR Radiation Oncology Staff Physician March 26, 2022 11:25 AM documented in this encounterGreene Memorial Hospital02-03-2023 Nurse Note* Zoila Lane LPN - 03/23/2022 9:18 AM EST Radiation Oncology Nursing Note PATIENT NAME: Celso Potts PATIENT [facility] FACILITY/LOCATION: [facility] PROCEDURE: Contrast Injection for CT Simulation [...] NAME: Celso Potts PATIENT March 23, 2022 [facility] FACILITY/LOCATION: [facility] READINESS TO LEARN Cognitive Ability: Alert [...] need for social work, van service, and aeronautical engineering teacher. Was KP approved? No KP completed and on 03/07/22 scored 0 distress. Signed by: Zoila Lane LPN documented in this encounterGreene Memorial Hospital02-03-2023 History of Present illness Narrative* [facility] Provider - 03/23/2022 12:00 AM EST CELSO POTTS Paige [id number] 03/23/2022 [facility] Department of Radiation Oncology [facility] RADIATION ONCOLOGY - Therapist Injection Note Procedure: [...] Disposition: HOME Therapist: magali documented in this encounterGreene Memorial Hospital02-03-2023 History of Present illness Narrative* Estrada Del Valle MD - 03/23/2022 12:00 AM EST CELSO POTTS Junior [id number] 03/23/2022 [facility] Department of Radiation Oncology Treatment Planning Note [...] Valle M.D. 37:10 AM documented in this encounterGreene Memorial Hospital02-02-2023 Miscellaneous Notes* Telephone Encounter - Dary Gonzalez [...] radiation. Dary Gonzalez RN documented in this encounterGreene Memorial Hospital01-29-2023 History of Present illness Narrative* Estrada Del [...] C No.3 (B COMPLEX PLUS VITAMIN C) 45-73-30-5-300 mg cap^Take 1 tablet by mouth once [...] I spent over 50% of a total afpu-lv-cswn time of 60-80 minutes, counseling/coordinating patient care. Signed by: Estrada Del Valle MD, MSc, MRCP, FRCR, DABR Radiation Oncology Staff Physician March 18, 2022 11:55 PM cc: Jose Vail [address] [place] [address] [place] [address] No referring provider defined for this encounter. documented in this encounterGreene Memorial Hospital01-26-2023 Miscellaneous Notes* Telephone Encounter - Flori Ford [...] was identified. 03/15/2022 by Juan Francisco Hutchinson APRN.RECOVERY AUDITOR Rx sent Juan Francisco Hutchinson APRN.RECOVERY AUDITOR * Telephone Encounter - Flori Ford RN [...] advise. Flori Logan, RN documented in this encounterGreene Memorial Hospital01-18-2023 Instructions* Patient Instructions* Mackenzie Woods LPN - 03/07/2022 11:47 AM EST Unarrive tx today Schedule Office visit with Dr Ramires 03/28/22 @11:30am per Dr Ramires documented in this encounterGreene Memorial Hospital01-18-2023 History of Present illness Narrative* Cyn Ramires [...] pneumonitis She saw Dr. Alejandro sarmiento at [facility] for 2nd opinion cell([phone]) She agreed with out plan and recommended [...] DATA CBC, CMP, TSH were reviewed in [facility]. PET scan report and images were reviewed in [facility]. Results werediscussed with patient and radiation oncology [...] FACP CC: Jose Parra documented in this encounterGreene Memorial Hospital12-08-2022 Instructions* Patient Instructions* Juan Francisco Hutchinson APRN.RECOVERY AUDITOR - 01/25/2022 2:57 PM EST JORGE GarsiaC Department of Palliative and Supportive Care Palliative Care - Specialty services in symptom management and support For questions or prescription refills, call: [phone] Saturday - Saturday 9AM-5PM ERVIN Corrales, RN - Concrete Block Molder Please call 3-5 days in advance for medication refills Evenings, Weekends, Holidays: [phone] (ask for palliative medicine on-call provider) For appointments, cancellations or reschedule, call: [phone] documented in this encounterGreene Memorial Hospital12-08-2022 NoteHNO ID: [id number] Author: Juan Francisco Hutchinson APRN.RECOVERY AUDITOR Service: ? Author Type: Nurse Practitioner Type: [...] treadmill. She will be meeting with a aed trainer to better understand the equipment upcoming. Has had some nausea since starting doxy for acne. Responsive to Compazine. Modified ESAS (Buckhorn Symptom Assessment Scale) Information Provided By: Patient [...] was identified. 01/25/2022 by Juan Francisco Hutchinson APRN.RECOVERY AUDITOR Urine Screen Lab Results Component Value Date [...] <5 02/24/2021 Methamphetamine Q (more content not included)...[facility] [id number] History of Present illness Narrative* Juan Francisco Hutchinson APRN.RECOVERY AUDITOR - 01/25/2022 10:55 AM EST PALLIATIVE MEDICINE [...] treadmill. She will be meeting with a aed trainer to better understand the equipment upcoming. Has had some nausea since starting doxy for acne. Responsive to Compazine. Modified ESAS (Buckhorn Symptom Assessment Scale) Information Provided By: Patient [...] was identified. 01/25/2022 by Juan Francisco Hutchinson APRN.RECOVERY AUDITOR Urine Screen Lab Results Component Value Date [...] Oxymorphone Quant, Urine <5 02/24/2021 Creatinine,Ur Pain Ocasoi 70.2 02/24/2021 Urine pH, Pain Ocasio 6.3 02/24/2021 Specific [place],Ur Pain Ocasio 1.012 02/24/2021 Oxidants,Ur 46 02/24/2021 [...] 25, 2022 10:55 AM documented in this encounterGreene Memorial Hospital12-05-2022 Miscellaneous Notes* Telephone Encounter - Kylie Mosher [...] advise. Kylie Mosher RN documented in this encounterGreene Memorial Hospital11-30-2022 Miscellaneous Notes* Telephone Encounter - Gunjan Joya LPN - 01/17/2022 9:10 AM EST Spoke with patient, rescheduled appt for tomorrow documented in this encounterGreene Memorial Hospital11-29-2022 Miscellaneous Notes* Telephone Encounter - Juan Francisco Hutchinson APRN.PEDRO - 01/16/2022 2:34 PM EST PDMP website checked and validated. All prescriptions have been APPROPRIATELY filled. No suspiciousactivity was identified. 01/16/2022 by Juan Francisco Hutchinson APRN.RECOVERY AUDITOR Rx sent Juan Francisco Hutchinson APRN.RECOVERY AUDITOR * Telephone Encounter - Kristina Pete RN - 01/16/2022 12:48 PM EST Patient phones requesting refills as follows: Requested Prescriptions Pending Prescriptions Disp Refills oxyCODONE IR (ROXICODONE) 10 mg tab 120 tablet 0 Sig: Take 1 tablet by mouth every 4 hours as needed (moderate-severe cancer pain) for up to 30 days. Please review and advise. Kristina Pete RN documented in this encounterGreene Memorial Hospital11-15-2022 Miscellaneous Notes* Telephone Encounter - Caro Srinivasan RN - 01/02/2022 3:41 PM EST [facility] Care Coordination FOLLOW-UP NOTE Patient identified by name and date of . YES Spoke to voicemail-full so unable to leave message x2 Summary: (Reason for follow-up) Chest tightness Pulmonary f/u needed Echocardiogram needed Concerns: (New Barriers to care) Caro Srinivasan RN January 02, 2022 documented in this encounterGreene Memorial Hospital11-09-2022 History of Present illness Narrative* Sylvia Mancilla APRN.RECOVERY AUDITOR - 12/27/2021 9:30 AM EST Oncology Progress [...] pneumonitis She saw Dr. Alejandro sarmiento at [facility] for 2nd opinion cell([phone]) She agreed with out plan and recommended [...] and TSH, sed rate were reviewed in [facility]. ASSESSMENT AND PLAN: 1. Relapsed Hodgkin lymphoma [...] 2021) purpose for the visit. Sylvia Mancilla APRN.RECOVERY AUDITOR Hematology/Oncology Janae Ortiz/ [facility] [phone] CC: Jose Parra documented in this encounterGreene Memorial Hospital10-31-2022 Miscellaneous Notes* Telephone Encounter - Cheryl Guerrero [...] advise. Kylie Mosher RN documented in this encounterGreene Memorial Hospital10-20-2022 Instructions* Patient Instructions* Nova Bridges APRN.PEDRO - [...] under eye as needed documented in this encounterGreene Memorial Hospital10-20-2022 History of Present illness Narrative* Nova Bridges [...] C No.3 (B COMPLEX PLUS VITAMIN C) 98-64-04-5-300 mg cap Take 1 tablet by mouth [...] following reflects his/her service. Scribed by Marilyn Allen LPN I agree with the Chief Complaint, ROS, and Past Histories independently gathered by the clinical air support control officer and the remaining scribed note accurately describes my personal service to the patient. Nova Bridges APRN.CNP December 07, 2021 9:39 AM I spent a total of 25 minutes on the date of the service which included zugi-ty-aexd patient care, completing clinical documentation, performing a medically appropriate examination, counseling and educating the patient/family/caregiver, and ordering medications, tests, or procedures. documented in this encounterGreene Memorial Hospital09-28-2022 History of Present illness Narrative* Cyn Ramires [...] pneumonitis She saw Dr. Alejandro sarmiento at [facility] for 2nd opinion cell([phone]) She agreed with out plan and recommended [...] and TSH, sed rate were reviewed in [facility]. ASSESSMENT AND PLAN: 1. Relapsed Hodgkin lymphoma [...] FACP CC: Jose Parra documented in this encounterGreene Memorial Hospital09-26-2022 Miscellaneous Notes* Telephone Encounter - Jeny Nava RN - 11/13/2021 8:35 AM EDT I have pended a CBC for Celso that she requested with her other labs. Please sign if agreeable. Thank you, MAE Valentin [facility] documented in this encounterGreene Memorial Hospital09-08-2022 NoteHNO ID: [id number] Author: Juan Francisco Hutchinson APRN.PEDRO Service: ? [...] upcoming PET scan will show. Modified ESAS (Buckhorn Symptom Assessment Scale) Information Provided By: Patient [...] Lab Results Component Value (more content not included)...[facility] [id number] History of Present illness Narrative* Juan Francisco [...] care with [facility] visit 08/02. Referred to [facility] palliative due to proximity of home. [...] upcoming PET scan will show. Modified ESAS (Buckhorn Symptom Assessment Scale) Information Provided By: Patient [...] was identified. 10/26/2021 by Juan Francisco Hutchinson APRN.RECOVERY AUDITOR Urine Screen Lab Results Component Value Date [...] Urine pH, Pain Ocasio 6.3 02/24/2021 Specific [place],Ur Pain Ocasio 1.012 02/24/2021 Oxidants,Ur 46 02/24/2021 [...] 26, 2021 11:07 AM documented in this encounterGreene Memorial Hospital09-07-2022 History of Present illness Narrative* Sylvia Mancilla [...] pneumonitis She saw Dr. Alejandro sarmiento at [facility] for 2nd opinion cell([phone]) She agreed with out plan and recommended [...] the spleen, liver and lymph node at [facility] Interval history: Ms. Potts is here for follow up and C#31 pembro. Patient went to [facility] 09/20/21 with fever, chills,fatigue. Tested positive [...] and TSH, sed rate were reviewed in [facility]. ASSESSMENT AND PLAN: 1. Relapsed Hodgkin lymphoma [...] visit. Sylvia Mancilla APRN.CNP Hematology/Oncology Janae Ortiz/ [facility] [phone] CC: Jose Parra documented in this encounterGreene Memorial Hospital09-07-2022 Instructions* Patient Instructions* Sylvia Mancilla APRN.CNP - 10/25/2021 10:00 AM EDT Call the office with questions or concerns. Go to ER with any signs of infection like fever of 100.4 or higher. documented in this encounterGreene Memorial Hospital08-29-2022 Miscellaneous Notes* Telephone Encounter - Juan Francisco Hutchinson APRN.CNP - 10/16/2021 4:16 PM EDT PDMP website checked and validated. All prescriptions have been APPROPRIATELY filled. No suspiciousactivity was identified. 10/16/2021 by Juan Francisco Hutchinson APRN.CNP Rx sent Juan Francisco Emely, MARINE ENGINE MACHINIST APPRENTICE.RECOVERY AUDITOR * Telephone Encounter - Kristina Pete RN - 10/16/2021 3:59 PM EDT Patient phones requesting refills as follows: Requested Prescriptions Pending Prescriptions Disp Refills oxyCODONE IR (ROXICODONE) 10 mg tab 120 tablet 0 Sig: Take 1 tablet by mouth every 4 hours as needed (moderate-severe cancer pain) for up to 30 days. Please review and advise. Kristina Pete RN documented in this encounterGreene Memorial Hospital08-15-2022 Miscellaneous Notes* Telephone Encounter - Joanne Jade [...] DAILY Elaine Enriquez LPN documented in this encounterGreene Memorial Hospital08-05-2022 Miscellaneous Notes* Telephone Encounter - Caro Srinivasan [...] Patient reminded of her follow-up appointment with [facility] provider, 10/04/21 Keytruda infusion and then 10/25 OV E Gross and infusion: Yes Next Concrete Block Molder outreach with patient scheduled? No, appointment made PATIENT EDUCATION/REINFORCEMENT Patient has information of when to seek Medical Attention? YES Patient has information of after hours and weekend phone number? YES Caro Srinivasan RN documented in this encounterGreene Memorial Hospital08-04-2022 NoteHNO ID: [id number] Author: RT Chapis(R) Service: Radiology Author Type: Door Assembler Type: Progress Notes Filed: 09/20/2021 10:41 PM [...] BY: RT Chapis(R) September 20, 2021 10:40 [facility] [id number] NoteCOVID 19 RESULT: SARS-CoV-2 (Agent of COVID-19) Detected by RT-PCR or equivalent method. This test has been authorized by FDA under an Emergency Use Authorization (EUA). INFLUENZA A PCR: Negative for Influenza A by RT-PCR INFLUENZA B PCR: Negative for Influenza B by RT-PCR RSV PCR: Negative for Respiratory Syncytial Virus (RSV) by PCRon HospitalComment on above:Performed By: #### [id number] #### [facility] CLIA [id number] [facility]. 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 Nova Bridges APRN.PEDRO September 05, 2021 5:59 PM documented in this encounterGreene Memorial Hospital07-18-2022 Miscellaneous Notes* Telephone Encounter - Flori Ford RN - 09/04/2021 11:32 AM EDT Pall med nurse call to patient and inquired if she was with [facility] Palliative care and she reports her [...] advise. Flori Ford RN documented in this encounterGreene Memorial Hospital06-28-2022 Miscellaneous Notes* Telephone Encounter - Juan Francisco [...] is not able to start care with [facility] until middle of August. Will need refills until she establishes. Patient phones requesting refills as follows: Pending Prescriptions Disp Refills OXYCODONE 10 MG TABLET 120 tablet 0 Sig: Take 1 tablet by mouth every 4 hours as needed (moderate-severe cancer pain) for up to 30 days. SHELBIE Class: C-II KAREN: No Please review and advise. Kristina Pete RN documented in this encounterGreene Memorial Hospital06-16-2022 Miscellaneous Notes* Telephone Encounter - Kristina Pete RN - 08/03/2021 8:21 AM EDT Patient has requested palliative services closer to her home referral faxed to [facility] palliative care. 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 Nova Bridges APRN.CNP July 28, 2021 8:03 AM documented in this encounterGreene Memorial Hospital05-24-2022 Miscellaneous Notes* Telephone Encounter - Juan Francisco [...] Flori Ford RN documented in this encounterCleveland Temfol34-03-2416 Miscellaneous Notes* Telephone Encounter - Joanne Jade PA-C - 06/30/2021 4:02 PM EDT [...] No Elaine Enriquez LPN documented in this encounterGreene Memorial Hospital04-28-2022 Miscellaneous Notes* Telephone Encounter - Juan Francisco Hutchinson APRN.PEDRO - 06/15/2021 5:05 PM EDT PDMP website checked and validated. All prescriptions have been APPROPRIATELY filled. No suspiciousactivity was identified. 06/15/2021 by Juan Francisco Hutchinson APRN.RECOVERY AUDITOR Rx sent Juan Francisco Hutchinson APRN.RECOVERY AUDITOR * Telephone Encounter - Kristina Pete RN - 06/15/2021 4:43 PM EDT Patient phones requesting refills as follows: Pending Prescriptions Disp Refills OXYCODONE 10 MG TABLET 120 tablet 0 Sig: Take 1 tablet by mouth every 4 hours as needed (moderate-severe cancer pain) for up to 30 days. SHELBIE Class: C-II KAREN: No Please review and advise. Kristina Pete RN documented in this encounterGreene Memorial Hospital04-27-2022 History of Present illness Narrative* Cyn Ramires [...] pneumonitis She saw Dr. Alejandro sarmiento at [facility] for 2nd opinion cell([phone]) She agreed with out plan and recommended [...] spleen, liver and lymph node at [facility] Interval history: Patient is here for follow-up [...] and TSH, sed rate were reviewed in [facility]. ASSESSMENT AND PLAN: 1. Relapsed Hodgkin lymphoma [...] M.D. Dr. Gurpreet Parra documented in this encounterGreene Memorial Hospital04-01-2022 Miscellaneous Notes* Telephone Encounter - Marilyn Hughes RN - 05/19/2021 9:09 AM EDT Pt with c/o sinus congestion, headache, cough, fatigue, T Max 101.3 last evening, then 'fever broke' afebrile this am. Dr Ramires notified and Z-pack sent to preferred pharmacy. Pt aware to call for worsening symptoms or temp >100.4 . Verbalized acknowledgement. Marilyn Hughes RN documented in this encounterGreene Memorial Hospital03-30-2022 Miscellaneous Notes* Telephone Encounter - RHETT Mesa - 05/17/2021 2:31 PM EDT SOCIAL WORK FOLLOW UP NOTE: [facility] Date of service:05/17/2021 Celso Potts is [...] resource F/U APPOINTMENT: PRN RHETT Mesa-S Senior Journalism Internship [facility] Oncology documented in this [facility]03-30-2022 Miscellaneous Notes* Telephone Encounter - RHETT Mesa - 05/17/2021 1:58 PM EDT SOCIAL WORK FOLLOW UP NOTE: [facility] Date of service:05/17/2021 Celso Potts is being seen for a follow up social work visit. Today's visit includes: patient TOPICS ADDRESSED: mental health needs Advised patient that SRINIVASAN Garsia from [facility] asked me to give patient local behavioral health resources. I forwarded this request to MATILDE Spear, who is a behavior health social studies teacher and is expert in these types of resources. I advised patient that Katarzyna should be reaching out to her. PLAN: Continue follow up as needed F/U APPOINTMENT: PRN RHETT Mesa-S Senior Journalism Internship [facility] Oncology documented in this encounterGreene Memorial Hospital03-30-2022 Instructions* Patient Instructions* Juan Francisco Hutchinson APRN.CNP - 05/17/2021 11:35 AM EDT Juan Francisco Hutchinson NP-C Department of Palliative and Supportive Care Palliative Care - Specialty services in symptom management and support For questions or prescription refills, call: Saturday - Saturday 9AM-5PM Chantal Newberry RN, BSN - Concrete Block Molder [phone] Please call 5 days in advance Evenings, Weekends, Holidays: [phone] (ask for palliative medicine on-call provider) For appointments, cancellations or reschedule, call: [phone] documented in this encounterGreene Memorial Hospital03-30-2022 History of Present illness Narrative* Juan Francisco [...] (on AC). She is transferring care to [facility] for palliative care. She has previously followed with Dr. Mosquera (last appt 04/12/2020) for management of anxiety, depression, neuropathy, and pain. Clover Stewart presents today alone. Reports feeling fairly well. Recently returned from vacation with friends in [place] where she had a great time although [...] Dr. Mosquera at last visit. Modified ESAS (Buckhorn Symptom Assessment Scale) Information Provided By: Patient [...] was identified. 05/17/2021 by Juan Francisco Hutchinson APRN.RECOVERY AUDITOR Urine Screen Lab Results Component Value Date [...] Urine pH, Pain Ocasio 6.3 02/24/2021 Specific [place],Ur Pain Ocasio 1.012 02/24/2021 Oxidants,Ur 46 02/24/2021 [...] 17, 2021 7:01 AM documented in this encounterGreene Memorial Hospital10-06-2021 NoteHNO ID: [id number] Author: RT Mir(R) Service: ? Author Type: [...] BY: RT Mir(R) November 23, 2020 10:59 AMUniversity Of [facility] [id number] History of Past illness Narrative* Problem Noted Date Diagnosed Date Resolved Date Radiation induced neuropathy 10/18/2020 03/07/2023 Menorrhagia with regular cycle 03/15/2017 01/01/2018 Overview: Added automatically from request for surgery [id number] History of pulmonary embolism 04/25/2016 01/01/2018 Neoplastic [...] FOLLOW-UP 10/27/2012 Overview: 32 yo female from [place], [place]. Family involved with care, at bedside. plan to discharge patient home - will arrange with case management for post op care as needed - follow up in OPD in 7-10 days Post-op pain 10/27/2012 12/26/2015 Overview: currently well controlled with E BUSINESS CONSULTANT. will start PO pain meds today 10/27. tolerating percocet, pain relatively well controlled. Hodgkin's disease with nodular sclerosis 05/27/2012 12/26/2015 Overview: Oncology history (per Dr. 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 Hodgkin's disease, unspecified 02/05/2012 05/11/2014 Vaginal bleeding 12/26/2015 Overview: --likely from thrombocytopenia. No menses in prior 8 months. Scant amount reported on 03/29 and 03/30, now resolved --monitor bleeding by counting pads --should f/u with her WASHER MACHINE provider after BMT Premature menopause 12/26/19 16 Postmenopausal atrophic vaginitis 12/26/2015 Dyspareunia 12/26/2015 documented as of this encounter (statuses as of 03/28/2023) [facility]08-31-2021 History of Past illness Narrative* Problem Noted Date Diagnosed Date Resolved Date Radiation induced neuropathy 10/18/2020 03/07/2023 Menorrhagia with regular cycle 03/15/2017 01/01/2018 Overview: Added automatically from request for surgery [id number] History of pulmonary embolism 04/25/2016 01/01/2018 Neoplastic [...] FOLLOW-UP 10/27/2012 Overview: 32 yo female from [place], [place]. Family involved with care, at bedside. plan to discharge patient home - will arrange with case management for post op care as needed - follow up in OPD in 7-10 days Post-op pain 10/27/2012 12/26/2015 Overview: currently well controlled with [employer]. will start PO pain meds today 10/27. tolerating percocet, pain relatively well controlled. Hodgkin's disease with nodular sclerosis 05/27/2012 12/26/2015 Overview: Oncology history (per Dr. 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 Hodgkin's disease, unspecified 02/05/2012 05/11/2014 Vaginal bleeding 12/26/2015 Overview: --likely from thrombocytopenia. No menses in prior 8 months. Scant amount reported on 03/29 and 03/30, now resolved --monitor bleeding by counting pads --should f/u with her [employer] provider after BMT Premature menopause 12/26/19 16 Postmenopausal atrophic vaginitis 12/26/2015 Dyspareunia 12/26/2015 documented as of this encounter (statuses as of 03/28/2023) [facility]08-31-2021 History of Past illness Narrative* Problem Noted Date Diagnosed Date Resolved Date Radiation induced neuropathy 10/18/2020 03/07/2023 Menorrhagia with regular cycle 03/15/2017 01/01/2018 Overview: Added automatically from request for surgery [id number] History of pulmonary embolism 04/25/2016 01/01/2018 Neoplastic [...] FOLLOW-UP 10/27/2012 Overview: 32 yo female from [place], [place]. Family involved with care, at bedside. plan to discharge patient home - will arrange with case management for post op care as needed - follow up in OPD in 7-10 days Post-op pain 10/27/2012 12/26/2015 Overview: currently well controlled with [employer]. will start PO pain meds today 10/27. tolerating percocet, pain relatively well controlled. Hodgkin's disease with nodular sclerosis 05/27/2012 12/26/2015 Overview: Oncology history (per Dr. 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 Hodgkin's disease, unspecified 02/05/2012 05/11/2014 Vaginal bleeding 12/26/2015 Overview: --likely from thrombocytopenia. No menses in prior 8 months. Scant amount reported on 03/29 and 03/30, now resolved --monitor bleeding by counting pads --should f/u with her [employer] provider after BMT Premature menopause 12/26/19 16 Postmenopausal atrophic vaginitis 12/26/2015 Dyspareunia 12/26/2015 documented as of this encounter (statuses as of 03/28/2023) [facility]08-[facility]21 History of Past illness Narrative* Problem Noted Date Diagnosed Date Resolved Date Radiation induced neuropathy 10/18/2020 03/07/2023 Menorrhagia with regular cycle 03/15/2017 01/01/2018 Overview: Added automatically from request for surgery [id number] History of pulmonary embolism 04/25/2016 01/01/2018 Neoplastic [...] FOLLOW-UP 10/27/2012 Overview: 32 yo female from [place], [place]. Family involved with care, at bedside. plan to discharge patient home - will arrange with case management for post op care as needed - follow up in OPD in 7-10 days Post-op pain 10/27/2012 12/26/2015 Overview: currently well controlled with [employer]. will start PO pain meds today 10/27. tolerating percocet, pain relatively well controlled. Hodgkin's disease with nodular sclerosis 05/27/2012 12/26/2015 Overview: Oncology history (per Dr. 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 Hodgkin's disease, unspecified 02/05/2012 05/11/2014 Vaginal bleeding 12/26/2015 Overview: --likely from thrombocytopenia. No menses in prior 8 months. Scant amount reported on 03/29 and 03/30, now resolved --monitor bleeding by counting pads --should f/u with her [employer] provider after BMT Premature menopause 12/26/19 16 Postmenopausal atrophic vaginitis 12/26/2015 Dyspareunia 12/26/2015 documented as of this encounter (statuses as of 04/01/2023) [facility]01-26[facility]2018 History of Past illness Narrative* Problem Noted Date Resolved Date Menorrhagia with regular cycle 03/15/2017 1 03/03/2017 Overview: Added automatically from request for surgery [id number] History of pulmonary embolism 04/25/2016 Neoplastic (malignant) [...] FOLLOW-UP 10/27/20122015 Overview: 32 yo female from [place]. Family involved with care, at bedside. plan to discharge patient home - will arrange with case management for post op care as needed - follow up in OPD in 7-10 days Post-op pain 10/27/2012 12/26/2015 Overview: currently well controlled with [employer]. will start PO pain meds today 10/27. tolerating percocet, pain relatively well controlled. Hodgkin's disease with nodular sclerosis 013 12/26/2015 Overview: Oncology history (per Dr. 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 Hodgkin's disease, unspecified 02/05/2012 0 05/11/2014 Vaginal bleeding 12/26/2015 Overview: --likely from thrombocytopenia. No menses in prior 8 months. Scant amount reported on 03/29 and 03/30, now resolved --monitor bleeding by counting pads --should f/u with her [employer] provider after BMT Premature menopause 12/26/2015 Postmenopausal atrophic vaginitis 12/26/2015 Dyspareunia 12/26/2015 documented as of this encounter (statuses as of 05/17/2021) [facility]01[facility] History of Past illness Narrative* Problem Noted Date Resolved Date Menorrhagia with regular cycle 03/15/2017 1 03/03/2017 Overview: Added automatically from request for surgery [id number] History of pulmonary embolism 04/25/2016 Neoplastic (malignant) [...] FOLLOW-UP 10/27/20122015 Overview: 32 yo female from [place]. Family involved with care, at bedside. plan to discharge patient home - will arrange with case management for post op care as needed - follow up in OPD in 7-10 days Post-op pain 10/27/2012 12/26/2015 Overview: currently well controlled with [employer]. will start PO pain meds today 10/27. tolerating percocet, pain relatively well controlled. Hodgkin's disease with nodular sclerosis 013 12/26/2015 Overview: Oncology history (per Dr. 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 Hodgkin's disease, unspecified 02/05/2012 0 05/11/2014 Vaginal bleeding 12/26/2015 Overview: --likely from thrombocytopenia. No menses in prior 8 months. Scant amount reported on 03/29 and 03/30, now resolved --monitor bleeding by counting pads --should f/u with her [employer] provider after BMT Premature menopause 12/26/2015 Postmenopausal atrophic vaginitis 12/26/2015 Dyspareunia 12/26/2015 documented as of this encounter (statuses as of 05/17/2021) [facility] History of Past illness Narrative* Problem Noted Date Resolved Date Menorrhagia with regular cycle 03/15/2017 1 03/03/2017 Overview: Added automatically from request for surgery [id number] History of pulmonary embolism 04/25/2016 Neoplastic (malignant) [...] FOLLOW-UP 10/27/20122015 Overview: 32 yo female from [place]. Family involved with care, at bedside. plan to discharge patient home - will arrange with case management for post op care as needed - follow up in OPD in 7-10 days Post-op pain 10/27/2012 12/26/2015 Overview: currently well controlled with [employer]. will start PO pain meds today 10/27. tolerating percocet, pain relatively well controlled. Hodgkin's disease with nodular sclerosis 013 12/26/2015 Overview: Oncology history (per Dr. 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 Hodgkin's disease, unspecified 02/05/2012 0 05/11/2014 Vaginal bleeding 12/26/2015 Overview: --likely from thrombocytopenia. No menses in prior 8 months. Scant amount reported on 03/29 and 03/30, now resolved --monitor bleeding by counting pads --should f/u with her [employer] provider after BMT Premature menopause 12/26/2015 Postmenopausal atrophic vaginitis 12/26/2015 Dyspareunia 12/26/2015 documented as of this encounter (statuses as of 05/17/2021) [facility] History of Past illness Narrative* Problem Noted Date Resolved Date Menorrhagia with regular cycle 03/15/2017 1 03/03/2017 Overview: Added automatically from request for surgery [id number] History of pulmonary embolism 04/25/2016 Neoplastic (malignant) [...] FOLLOW-UP 10/27/20122015 Overview: 32 yo female from [place]. Family involved with care, at bedside. plan to discharge patient home - will arrange with case management for post op care as needed - follow up in OPD in 7-10 days Post-op pain 10/27/2012 12/26/2015 Overview: currently well controlled with [employer]. will start PO pain meds today 10/27. tolerating percocet, pain relatively well controlled. Hodgkin's disease with nodular sclerosis 013 12/26/2015 Overview: Oncology history (per Dr. 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 Hodgkin's disease, unspecified 02/05/2012 0 05/11/2014 Vaginal bleeding 12/26/2015 Overview: --likely from thrombocytopenia. No menses in prior 8 months. Scant amount reported on 03/29 and 03/30, now resolved --monitor bleeding by counting pads --should f/u with her [employer] provider after BMT Premature menopause 12/26/2015 Postmenopausal atrophic vaginitis 12/26/2015 Dyspareunia 12/26/2015 documented as of this encounter (statuses as of 05/17/2021) [facility] History of Past illness Narrative* Problem Noted Date Resolved Date Menorrhagia with regular cycle 03/15/2017 1 03/03/2017 Overview: Added automatically from request for surgery [id number] History of pulmonary embolism 04/25/2016 Neoplastic (malignant) [...] FOLLOW-UP 10/27/20122015 Overview: 32 yo female from [place]. Family involved with care, at bedside. plan to discharge patient home - will arrange with case management for post op care as needed - follow up in OPD in 7-10 days Post-op pain 10/27/2012 12/26/2015 Overview: currently well controlled with [employer]. will start PO pain meds today 10/27. tolerating percocet, pain relatively well controlled. Hodgkin's disease with nodular sclerosis 013 12/26/2015 Overview: Oncology history (per Dr. 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 Hodgkin's disease, unspecified 02/05/2012 0 05/11/2014 Vaginal bleeding 12/26/2015 Overview: --likely from thrombocytopenia. No menses in prior 8 months. Scant amount reported on 03/29 and 03/30, now resolved --monitor bleeding by counting pads --should f/u with her [employer] provider after BMT Premature menopause 12/26/2015 Postmenopausal atrophic vaginitis 12/26/2015 Dyspareunia 12/26/2015 documented as of this encounter (statuses as of 05/17/2021) [facility] History of Past illness Narrative* Problem Noted Date Resolved Date Menorrhagia with regular cycle 03/15/2017 1 03/03/2017 Overview: Added automatically from request for surgery [id number] History of pulmonary embolism 04/25/2016 Neoplastic (malignant) [...] FOLLOW-UP 10/27/20122015 Overview: 32 yo female from [place]. Family involved with care, at bedside. plan to discharge patient home - will arrange with case management for post op care as needed - follow up in OPD in 7-10 days Post-op pain 10/27/2012 12/26/2015 Overview: currently well controlled with [employer]. will start PO pain meds today 10/27. tolerating percocet, pain relatively well controlled. Hodgkin's disease with nodular sclerosis 013 12/26/2015 Overview: Oncology history (per Dr. 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 Hodgkin's disease, unspecified 02/05/2012 0 05/11/2014 Vaginal bleeding 12/26/2015 Overview: --likely from thrombocytopenia. No menses in prior 8 months. Scant amount reported on 03/29 and 03/30, now resolved --monitor bleeding by counting pads --should f/u with her [employer] provider after BMT Premature menopause 12/26/2015 Postmenopausal atrophic vaginitis 12/26/2015 Dyspareunia 12/26/2015 documented as of this encounter (statuses as of 05/17/2021) [facility] History of Past illness Narrative* Problem Noted Date Resolved Date Menorrhagia with regular cycle 03/15/2017 1 03/03/2017 Overview: Added automatically from request for surgery [id number] History of pulmonary embolism 04/25/2016 Neoplastic (malignant) [...] FOLLOW-UP 10/27/20122015 Overview: 32 yo female from [place]. Family involved with care, at bedside. plan to discharge patient home - will arrange with case management for post op care as needed - follow up in OPD in 7-10 days Post-op pain 10/27/2012 12/26/2015 Overview: currently well controlled with [employer]. will start PO pain meds today 10/27. tolerating percocet, pain relatively well controlled. Hodgkin's disease with nodular sclerosis 013 12/26/2015 Overview: Oncology history (per Dr. 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 Hodgkin's disease, unspecified 02/05/2012 0 05/11/2014 Vaginal bleeding 12/26/2015 Overview: --likely from thrombocytopenia. No menses in prior 8 months. Scant amount reported on 03/29 and 03/30, now resolved --monitor bleeding by counting pads --should f/u with her [employer] provider after BMT Premature menopause 12/26/2015 Postmenopausal atrophic vaginitis 12/26/2015 Dyspareunia 12/26/2015 documented as of this encounter (statuses as of 05/19/2021) [facility] of Past illness Narrative* Problem Noted Date Resolved Date Menorrhagia with regular cycle 03/15/2017 1 03/03/2017 Overview: Added automatically from request for surgery [id number] History of pulmonary embolism 04/25/2016 Neoplastic (malignant) [...] FOLLOW-UP 10/27/20122015 Overview: 32 yo female from [place]. Family involved with care, at bedside. plan to discharge patient home - will arrange with case management for post op care as needed - follow up in OPD in 7-10 days Post-op pain 10/27/2012 12/26/2015 Overview: currently well controlled with [employer]. will start PO pain meds today 10/27. tolerating percocet, pain relatively well controlled. Hodgkin's disease with nodular sclerosis 013 12/26/2015 Overview: Oncology history (per Dr. 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 Hodgkin's disease, unspecified 02/05/2012 0 05/11/2014 Vaginal bleeding 12/26/2015 Overview: --likely from thrombocytopenia. No menses in prior 8 months. Scant amount reported on 03/29 and 03/30, now resolved --monitor bleeding by counting pads --should f/u with her [employer] provider after BMT Premature menopause 12/26/2015 Postmenopausal atrophic vaginitis 12/26/2015 Dyspareunia 12/26/2015 documented as of this encounter (statuses as of 06/06/2021) [facility] of Past illness Narrative* Problem Noted Date Resolved Date Menorrhagia with regular cycle 03/15/2017 1 03/03/2017 Overview: Added automatically from request for surgery [id number] History of pulmonary embolism 04/25/2016 Neoplastic (malignant) [...] FOLLOW-UP 10/27/20122015 Overview: 32 yo female from [place]. Family involved with care, at bedside. plan to discharge patient home - will arrange with case management for post op care as needed - follow up in OPD in 7-10 days Post-op pain 10/27/2012 12/26/2015 Overview: currently well controlled with [employer]. will start PO pain meds today 10/27. tolerating percocet, pain relatively well controlled. Hodgkin's disease with nodular sclerosis 013 12/26/2015 Overview: Oncology history (per Dr. 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 Hodgkin's disease, unspecified 02/05/2012 0 05/11/2014 Vaginal bleeding 12/26/2015 Overview: --likely from thrombocytopenia. No menses in prior 8 months. Scant amount reported on 03/29 and 03/30, now resolved --monitor bleeding by counting pads --should f/u with her [employer] provider after BMT Premature menopause 12/26/2015 Postmenopausal atrophic vaginitis 12/26/2015 Dyspareunia 12/26/2015 documented as of this encounter (statuses as of 06/07/2021) [facility] of Past illness Narrative* Problem Noted Date Resolved Date Menorrhagia with regular cycle 03/15/2017 1 03/03/2017 Overview: Added automatically from request for surgery [id number] History of pulmonary embolism 04/25/2016 Neoplastic (malignant) [...] FOLLOW-UP 10/27/20122015 Overview: 32 yo female from [place]. Family involved with care, at bedside. plan to discharge patient home - will arrange with case management for post op care as needed - follow up in OPD in 7-10 days Post-op pain 10/27/2012 12/26/2015 Overview: currently well controlled with [employer]. will start PO pain meds today 10/27. tolerating percocet, pain relatively well controlled. Hodgkin's disease with nodular sclerosis 013 12/26/2015 Overview: Oncology history (per Dr. 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 Hodgkin's disease, unspecified 02/05/2012 0 05/11/2014 Vaginal bleeding 12/26/2015 Overview: --likely from thrombocytopenia. No menses in prior 8 months. Scant amount reported on 03/29 and 03/30, now resolved --monitor bleeding by counting pads --should f/u with her [employer] provider after BMT Premature menopause 12/26/2015 Postmenopausal atrophic vaginitis 12/26/2015 Dyspareunia 12/26/2015 documented as of this encounter (statuses as of 06/14/2021) [facility] of Past illness Narrative* Problem Noted Date Resolved Date Menorrhagia with regular cycle 03/15/2017 1 03/03/2017 Overview: Added automatically from request for surgery [id number] History of pulmonary embolism 04/25/2016 Neoplastic (malignant) [...] FOLLOW-UP 10/27/20122015 Overview: 32 yo female from [place]. Family involved with care, at bedside. plan to discharge patient home - will arrange with case management for post op care as needed - follow up in OPD in 7-10 days Post-op pain 10/27/2012 12/26/2015 Overview: currently well controlled with [employer]. will start PO pain meds today 10/27. tolerating percocet, pain relatively well controlled. Hodgkin's disease with nodular sclerosis 013 12/26/2015 Overview: Oncology history (per Dr. 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 Hodgkin's disease, unspecified 02/05/2012 0 05/11/2014 Vaginal bleeding 12/26/2015 Overview: --likely from thrombocytopenia. No menses in prior 8 months. Scant amount reported on 03/29 and 03/30, now resolved --monitor bleeding by counting pads --should f/u with her [employer] provider after BMT Premature menopause 12/26/2015 Postmenopausal atrophic vaginitis 12/26/2015 Dyspareunia 12/26/2015 documented as of this encounter (statuses as of 06/14/2021) [facility] of Past [facility] Narrative* Problem Noted Date Resolved Date Menorrhagia with regular cycle 03/15/2017 1 03/03/2017 Overview: Added automatically from request for surgery [id number] History of pulmonary embolism 04/25/2016 Neoplastic (malignant) [...] FOLLOW-UP 10/27/20122015 Overview: 32 yo female from [place]. Family involved with care, at bedside. plan to discharge patient home - will arrange with case management for post op care as needed - follow up in OPD in 7-10 days Post-op pain 10/27/2012 12/26/2015 Overview: currently well controlled with [employer]. will start PO pain meds today 10/27. tolerating percocet, pain relatively well controlled. Hodgkin's disease with nodular sclerosis 013 12/26/2015 Overview: Oncology history (per Dr. 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 Hodgkin's disease, unspecified 02/05/2012 0 05/11/2014 Vaginal bleeding 12/26/2015 Overview: --likely from thrombocytopenia. No menses in prior 8 months. Scant amount reported on 03/29 and 03/30, now resolved --monitor bleeding by counting pads --should f/u with her [employer] provider after BMT Premature menopause 12/26/2015 Postmenopausal atrophic vaginitis 12/26/2015 Dyspareunia 12/26/2015 documented as of this encounter (statuses as of 06/15/2021) [facility] [facility] History of Past illness Narrative* Problem Noted Date Resolved Date Menorrhagia with regular cycle 03/15/2017 1 03/03/2017 Overview: Added automatically from request for surgery [id number] History of pulmonary embolism 04/25/2016 Neoplastic (malignant) [...] FOLLOW-UP 10/27/20122015 Overview: 32 yo female from [place], [place]. Family involved with care, at bedside. plan to discharge patient home - will arrange with case management for post op care as needed - follow up in OPD in 7-10 days Post-op pain 10/27/2012 12/26/2015 Overview: currently well controlled with [employer]. will start PO pain meds today 10/27. tolerating percocet, pain relatively well controlled. Hodgkin's disease with nodular sclerosis 013 12/26/2015 Overview: Oncology history (per Dr. 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 Hodgkin's disease, unspecified 02/05/2012 0 05/11/2014 Vaginal bleeding 12/26/2015 Overview: --likely from thrombocytopenia. No menses in prior 8 months. Scant amount reported on 03/29 and 03/30, now resolved --monitor bleeding by counting pads --should f/u with her [employer] provider after BMT Premature menopause 12/26/2015 Postmenopausal atrophic vaginitis 12/26/2015 Dyspareunia 12/26/2015 documented as of this encounter (statuses as of 06/30/2021) [facility]01-[facility]2018 History of Past illness Narrative* Problem Noted Date Resolved Date Menorrhagia with regular cycle 03/15/2017 1 03/03/2017 Overview: Added automatically from request for surgery [id number] History of pulmonary embolism 04/25/2016 Neoplastic (malignant) [...] FOLLOW-UP 10/27/20122015 Overview: 32 yo female from [place], [place]. Family involved with care, at bedside. plan to discharge patient home - will arrange with case management for post op care as needed - follow up in OPD in 7-10 days Post-op pain 10/27/2012 12/26/2015 Overview: currently well controlled with [employer]. will start PO pain meds today 10/27. tolerating percocet, pain relatively well controlled. Hodgkin's disease with nodular sclerosis 013 12/26/2015 Overview: Oncology history (per Dr. 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 Hodgkin's disease, unspecified 02/05/2012 0 05/11/2014 Vaginal bleeding 12/26/2015 Overview: --likely from thrombocytopenia. No menses in prior 8 months. Scant amount reported on 03/29 and 03/30, now resolved --monitor bleeding by counting pads --should f/u with her [employer] provider after BMT Premature menopause 12/26/2015 Postmenopausal atrophic vaginitis 12/26/2015 Dyspareunia 12/26/2015 documented as of this encounter (statuses as of 07/05/2021) [facility]01[facility] History of Past illness Narrative* Problem Noted Date Resolved Date Menorrhagia with regular cycle 03/15/2017 1 03/03/2017 Overview: Added automatically from request for surgery [id number] History of pulmonary embolism 04/25/2016 Neoplastic (malignant) [...] FOLLOW-UP 10/27/20122015 Overview: 32 yo female from [place]. Family involved with care, at bedside. plan to discharge patient home - will arrange with case management for post op care as needed - follow up in OPD in 7-10 days Post-op pain 10/27/2012 12/26/2015 Overview: currently well controlled with [employer]. will start PO pain meds today 10/27. tolerating percocet, pain relatively well controlled. Hodgkin's disease with nodular sclerosis 013 12/26/2015 Overview: Oncology history (per Dr. 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 Hodgkin's disease, unspecified 02/05/2012 0 05/11/2014 Vaginal bleeding 12/26/2015 Overview: --likely from thrombocytopenia. No menses in prior 8 months. Scant amount reported on 03/29 and 03/30, now resolved --monitor bleeding by counting pads --should f/u with her [employer] provider after BMT Premature menopause 12/26/2015 Postmenopausal atrophic vaginitis 12/26/2015 Dyspareunia 12/26/2015 documented as of this encounter (statuses as of 07/06/2021) [facility] History of Past illness Narrative* Problem Noted Date Resolved Date Menorrhagia with regular cycle 03/15/2017 1 03/03/2017 Overview: Added automatically from request for surgery [id number] History of pulmonary embolism 04/25/2016 Neoplastic (malignant) [...] FOLLOW-UP 10/27/20122015 Overview: 32 yo female from [place]. Family involved with care, at bedside. plan to discharge patient home - will arrange with case management for post op care as needed - follow up in OPD in 7-10 days Post-op pain 10/27/2012 12/26/2015 Overview: currently well controlled with [employer]. will start PO pain meds today 10/27. tolerating percocet, pain relatively well controlled. Hodgkin's disease with nodular sclerosis 013 12/26/2015 Overview: Oncology history (per Dr. 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 Hodgkin's disease, unspecified 02/05/2012 0 05/11/2014 Vaginal bleeding 12/26/2015 Overview: --likely from thrombocytopenia. No menses in prior 8 months. Scant amount reported on 03/29 and 03/30, now resolved --monitor bleeding by counting pads --should f/u with her [employer] provider after BMT Premature menopause 12/26/2015 Postmenopausal atrophic vaginitis 12/26/2015 Dyspareunia 12/26/2015 documented as of this encounter (statuses as of 2021) [facility]01[facility] History of Past illness Narrative* Problem Noted Date Resolved Date Menorrhagia with regular cycle 03/15/2017 1 03/03/2017 Overview: Added automatically from request for surgery [id number] History of pulmonary embolism 04/25/2016 Neoplastic (malignant) [...] FOLLOW-UP 10/27/20122015 Overview: 32 yo female from [place]. Family involved with care, at bedside. plan to discharge patient home - will arrange with case management for post op care as needed - follow up in OPD in 7-10 days Post-op pain 10/27/2012 12/26/2015 Overview: currently well controlled with [employer]. will start PO pain meds today 10/27. tolerating percocet, pain relatively well controlled. Hodgkin's disease with nodular sclerosis 013 12/26/2015 Overview: Oncology history (per Dr. 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 Hodgkin's disease, unspecified 02/05/2012 0 05/11/2014 Vaginal bleeding 12/26/2015 Overview: --likely from thrombocytopenia. No menses in prior 8 months. Scant amount reported on 03/29 and 03/30, now resolved --monitor bleeding by counting pads --should f/u with her [employer] provider after BMT Premature menopause 12/26/2015 Postmenopausal atrophic vaginitis 12/26/2015 Dyspareunia 12/26/2015 documented as of this encounter (statuses as of 2021) [facility]01[facility] History of Past illness Narrative* Problem Noted Date Resolved Date Menorrhagia with regular cycle 03/15/2017 1 03/03/2017 Overview: Added automatically from request for surgery [id number] History of pulmonary embolism 04/25/2016 Neoplastic (malignant) [...] FOLLOW-UP 10/27/20122015 Overview: 32 yo female from [place]. Family involved with care, at bedside. plan to discharge patient home - will arrange with case management for post op care as needed - follow up in OPD in 7-10 days Post-op pain 10/27/2012 12/26/2015 Overview: currently well controlled with [employer]. will start PO pain meds today 10/27. tolerating percocet, pain relatively well controlled. Hodgkin's disease with nodular sclerosis 013 12/26/2015 Overview: Oncology history (per Dr. 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 Hodgkin's disease, unspecified 02/05/2012 0 05/11/2014 Vaginal bleeding 12/26/2015 Overview: --likely from thrombocytopenia. No menses in prior 8 months. Scant amount reported on 03/29 and 03/30, now resolved --monitor bleeding by counting pads --should f/u with her [employer] provider after BMT Premature menopause 12/26/2015 Postmenopausal atrophic vaginitis 12/26/2015 Dyspareunia 12/26/2015 documented as of this encounter (statuses as of 07/26/2021) [facility]01[facility] History of Past illness Narrative* Problem Noted Date Resolved Date Menorrhagia with regular cycle 03/15/2017 1 03/03/2017 Overview: Added automatically from request for surgery [id number] History of pulmonary embolism 04/25/2016 Neoplastic (malignant) [...] FOLLOW-UP 10/27/20122015 Overview: 32 yo female from [place]. Family involved with care, at bedside. plan to discharge patient home - will arrange with case management for post op care as needed - follow up in OPD in 7-10 days Post-op pain 10/27/2012 12/26/2015 Overview: currently well controlled with [employer]. will start PO pain meds today 10/27. tolerating percocet, pain relatively well controlled. Hodgkin's disease with nodular sclerosis 013 12/26/2015 Overview: Oncology history (per Dr. 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 Hodgkin's disease, unspecified 02/05/2012 0 05/11/2014 Vaginal bleeding 12/26/2015 Overview: --likely from thrombocytopenia. No menses in prior 8 months. Scant amount reported on 03/29 and 03/30, now resolved --monitor bleeding by counting pads --should f/u with her [employer] provider after BMT Premature menopause 12/26/2015 Postmenopausal atrophic vaginitis 12/26/2015 Dyspareunia 12/26/2015 documented as of this encounter (statuses as of 07/28/2021) [facility]01[facility] History of Past illness Narrative* Problem Noted Date Resolved Date Menorrhagia with regular cycle 03/15/2017 1 03/03/2017 Overview: Added automatically from request for surgery [id number] History of pulmonary embolism 04/25/2016 Neoplastic (malignant) [...] FOLLOW-UP 10/27/20122015 Overview: 32 yo female from [place]. Family involved with care, at bedside. plan to discharge patient home - will arrange with case management for post op care as needed - follow up in OPD in 7-10 days Post-op pain 10/27/2012 12/26/2015 Overview: currently well controlled with [employer]. will start PO pain meds today 10/27. tolerating percocet, pain relatively well controlled. Hodgkin's disease with nodular sclerosis 013 12/26/2015 Overview: Oncology history (per Dr. 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 Hodgkin's disease, unspecified 02/05/2012 0 05/11/2014 Vaginal bleeding 12/26/2015 Overview: --likely from thrombocytopenia. No menses in prior 8 months. Scant amount reported on 03/29 and 03/30, now resolved --monitor bleeding by counting pads --should f/u with her [employer] provider after BMT Premature menopause 12/26/2015 Postmenopausal atrophic vaginitis 12/26/2015 Dyspareunia 12/26/2015 documented as of this encounter (statuses as of 07/31/2021) [facility] History of Past illness Narrative* Problem Noted Date Resolved Date Menorrhagia with regular cycle 03/15/2017 1 03/03/2017 Overview: Added automatically from request for surgery [id number] History of pulmonary embolism 04/25/2016 Neoplastic (malignant) [...] FOLLOW-UP 10/27/20122015 Overview: 32 yo female from [place]. Family involved with care, at bedside. plan to discharge patient home - will arrange with case management for post op care as needed - follow up in OPD in 7-10 days Post-op pain 10/27/2012 12/26/2015 Overview: currently well controlled with [employer]. will start PO pain meds today 10/27. tolerating percocet, pain relatively well controlled. Hodgkin's disease with nodular sclerosis 013 12/26/2015 Overview: Oncology history (per Dr. 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 Hodgkin's disease, unspecified 02/05/2012 0 05/11/2014 Vaginal bleeding 12/26/2015 Overview: --likely from thrombocytopenia. No menses in prior 8 months. Scant amount reported on 03/29 and 03/30, now resolved --monitor bleeding by counting pads --should f/u with her [employer] provider after BMT Premature menopause 12/26/2015 Postmenopausal atrophic vaginitis 12/26/2015 Dyspareunia 12/26/2015 documented as of this encounter (statuses as of 07/31/2021) [facility] History of Past illness Narrative* Problem Noted Date Resolved Date Menorrhagia with regular cycle 03/15/2017 1 03/03/2017 Overview: Added automatically from request for surgery [id number] History of pulmonary embolism 04/25/2016 Neoplastic (malignant) [...] FOLLOW-UP 10/27/20122015 Overview: 32 yo female from [place]. Family involved with care, at bedside. plan to discharge patient home - will arrange with case management for post op care as needed - follow up in OPD in 7-10 days Post-op pain 10/27/2012 12/26/2015 Overview: currently well controlled with [employer]. will start PO pain meds today 10/27. tolerating percocet, pain relatively well controlled. Hodgkin's disease with nodular sclerosis 013 12/26/2015 Overview: Oncology history (per Dr. 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 Hodgkin's disease, unspecified 02/05/2012 0 05/11/2014 Vaginal bleeding 12/26/2015 Overview: --likely from thrombocytopenia. No menses in prior 8 months. Scant amount reported on 03/29 and 03/30, now resolved --monitor bleeding by counting pads --should f/u with her [employer] provider after BMT Premature menopause 12/26/2015 Postmenopausal atrophic vaginitis 12/26/2015 Dyspareunia 12/26/2015 documented as of this encounter (statuses as of 08/03/2021) [facility]01[facility] History of Past illness Narrative* Problem Noted Date Resolved Date Menorrhagia with regular cycle 03/15/2017 1 03/03/2017 Overview: Added automatically from request for surgery [id number] History of pulmonary embolism 04/25/2016 Neoplastic (malignant) [...] FOLLOW-UP 10/27/20122015 Overview: 32 yo female from [place]. Family involved with care, at bedside. plan to discharge patient home - will arrange with case management for post op care as needed - follow up in OPD in 7-10 days Post-op pain 10/27/2012 12/26/2015 Overview: currently well controlled with [employer]. will start PO pain meds today 10/27. tolerating percocet, pain relatively well controlled. Hodgkin's disease with nodular sclerosis 013 12/26/2015 Overview: Oncology history (per Dr. 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 Hodgkin's disease, unspecified 02/05/2012 0 05/11/2014 Vaginal bleeding 12/26/2015 Overview: --likely from thrombocytopenia. No menses in prior 8 months. Scant amount reported on 03/29 and 03/30, now resolved --monitor bleeding by counting pads --should f/u with her [employer] provider after BMT Premature menopause 12/26/2015 Postmenopausal atrophic vaginitis 12/26/2015 Dyspareunia 12/26/2015 documented as of this encounter (statuses as of 08/15/2021) [facility] History of Past illness Narrative* Problem Noted Date Resolved Date Menorrhagia with regular cycle 03/15/2017 1 03/03/2017 Overview: Added automatically from request for surgery [id number] History of pulmonary embolism 04/25/2016 Neoplastic (malignant) [...] FOLLOW-UP 10/27/20122015 Overview: 32 yo female from [place]. Family involved with care, at bedside. plan to discharge patient home - will arrange with case management for post op care as needed - follow up in OPD in 7-10 days Post-op pain 10/27/2012 12/26/2015 Overview: currently well controlled with [employer]. will start PO pain meds today 10/27. tolerating percocet, pain relatively well controlled. Hodgkin's disease with nodular sclerosis 013 12/26/2015 Overview: Oncology history (per Dr. 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 Hodgkin's disease, unspecified 02/05/2012 0 05/11/2014 Vaginal bleeding 12/26/2015 Overview: --likely from thrombocytopenia. No menses in prior 8 months. Scant amount reported on 03/29 and 03/30, now resolved --monitor bleeding by counting pads --should f/u with her [employer] provider after BMT Premature menopause 12/26/2015 Postmenopausal atrophic vaginitis 12/26/2015 Dyspareunia 12/26/2015 documented as of this encounter (statuses as of 08/16/2021) [facility] of Past illness Narrative* Problem Noted Date Resolved Date Menorrhagia with regular cycle 03/15/2017 1 03/03/2017 Overview: Added automatically from request for surgery [id number] History of pulmonary embolism 04/25/2016 Neoplastic (malignant) [...] FOLLOW-UP 10/27/20122015 Overview: 32 yo female from [place]. Family involved with care, at bedside. plan to discharge patient home - will arrange with case management for post op care as needed - follow up in OPD in 7-10 days Post-op pain 10/27/2012 12/26/2015 Overview: currently well controlled with [employer]. will start PO pain meds today 10/27. tolerating percocet, pain relatively well controlled. Hodgkin's disease with nodular sclerosis 013 12/26/2015 Overview: Oncology history (per Dr. 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 Hodgkin's disease, unspecified 02/05/2012 0 05/11/2014 Vaginal bleeding 12/26/2015 Overview: --likely from thrombocytopenia. No menses in prior 8 months. Scant amount reported on 03/29 and 03/30, now resolved --monitor bleeding by counting pads --should f/u with her [employer] provider after BMT Premature menopause 12/26/2015 Postmenopausal atrophic vaginitis 12/26/2015 Dyspareunia 12/26/2015 documented as of this encounter (statuses as of 08/30/2021) [facility] History of Past illness Narrative* Problem Noted Date Resolved Date Menorrhagia with regular cycle 03/15/2017 1 03/03/2017 Overview: Added automatically from request for surgery [id number] History of pulmonary embolism 04/25/2016 Neoplastic (malignant) [...] FOLLOW-UP 10/27/20122015 Overview: 32 yo female from [place]. Family involved with care, at bedside. plan to discharge patient home - will arrange with case management for post op care as needed - follow up in OPD in 7-10 days Post-op pain 10/27/2012 12/26/2015 Overview: currently well controlled with [employer]. will start PO pain meds today 10/27. tolerating percocet, pain relatively well controlled. Hodgkin's disease with nodular sclerosis 013 12/26/2015 Overview: Oncology history (per Dr. 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 Hodgkin's disease, unspecified 02/05/2012 0 05/11/2014 Vaginal bleeding 12/26/2015 Overview: --likely from thrombocytopenia. No menses in prior 8 months. Scant amount reported on 03/29 and 03/30, now resolved --monitor bleeding by counting pads --should f/u with her [employer] provider after BMT Premature menopause 12/26/2015 Postmenopausal atrophic vaginitis 12/26/2015 Dyspareunia 12/26/2015 documented as of this encounter (statuses as of 09/04/2021) [facility] of Past illness Narrative* Problem Noted Date Resolved Date Menorrhagia with regular cycle 03/15/2017 1 03/03/2017 Overview: Added automatically from request for surgery [id number] History of pulmonary embolism 04/25/2016 Neoplastic (malignant) [...] FOLLOW-UP 10/27/20122015 Overview: 32 yo female from [place]. Family involved with care, at bedside. plan to discharge patient home - will arrange with case management for post op care as needed - follow up in OPD in 7-10 days Post-op pain 10/27/2012 12/26/2015 Overview: currently well controlled with [employer]. will start PO pain meds today 10/27. tolerating percocet, pain relatively well controlled. Hodgkin's disease with nodular sclerosis 013 12/26/2015 Overview: Oncology history (per Dr. 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 Hodgkin's disease, unspecified 02/05/2012 0 05/11/2014 Vaginal bleeding 12/26/2015 Overview: --likely from thrombocytopenia. No menses in prior 8 months. Scant amount reported on 03/29 and 03/30, now resolved --monitor bleeding by counting pads --should f/u with her [employer] provider after BMT Premature menopause 12/26/2015 Postmenopausal atrophic vaginitis 12/26/2015 Dyspareunia 12/26/2015 documented as of this encounter (statuses as of 09/04/2021) [facility] of Past illness Narrative* Problem Noted Date Resolved Date Menorrhagia with regular cycle 03/15/2017 1 03/03/2017 Overview: Added automatically from request for surgery [id number] History of pulmonary embolism 04/25/2016 Neoplastic (malignant) [...] FOLLOW-UP 10/27/20122015 Overview: 32 yo female from [place], [place]. Family involved with care, at bedside. plan to discharge patient home - will arrange with case management for post op care as needed - follow up in OPD in 7-10 days Post-op pain 10/27/2012 12/26/2015 Overview: currently well controlled with [employer]. will start PO pain meds today 10/27. tolerating percocet, pain relatively well controlled. Hodgkin's disease with nodular sclerosis 013 12/26/2015 Overview: Oncology history (per Dr. 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 Hodgkin's disease, unspecified 02/05/2012 0 05/11/2014 Vaginal bleeding 12/26/2015 Overview: --likely from thrombocytopenia. No menses in prior 8 months. Scant amount reported on 03/29 and 03/30, now resolved --monitor bleeding by counting pads --should f/u with her [employer] provider after BMT Premature menopause 12/26/2015 Postmenopausal atrophic vaginitis 12/26/2015 Dyspareunia 12/26/2015 documented as of this encounter (statuses as of 09/05/2021) [facility] History of Past illness Narrative* Problem Noted Date Resolved Date Menorrhagia with regular cycle 03/15/2017 1 03/03/2017 Overview: Added automatically from request for surgery [id number] History of pulmonary embolism 04/25/2016 Neoplastic (malignant) [...] FOLLOW-UP 10/27/20122015 Overview: 32 yo female from [place], [place]. Family involved with care, at bedside. plan to discharge patient home - will arrange with case management for post op care as needed - follow up in OPD in 7-10 days Post-op pain 10/27/2012 12/26/2015 Overview: currently well controlled with [employer]. will start PO pain meds today 10/27. tolerating percocet, pain relatively well controlled. Hodgkin's disease with nodular sclerosis 013 12/26/2015 Overview: Oncology history (per Dr. 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 Hodgkin's disease, unspecified 02/05/2012 0 05/11/2014 Vaginal bleeding 12/26/2015 Overview: --likely from thrombocytopenia. No menses in prior 8 months. Scant amount reported on 03/29 and 03/30, now resolved --monitor bleeding by counting pads --should f/u with her [employer] provider after BMT Premature menopause 12/26/2015 Postmenopausal atrophic vaginitis 12/26/2015 Dyspareunia 12/26/2015 documented as of this encounter (statuses as of 09/06/2021) [facility] History of Past illness Narrative* Problem Noted Date Resolved Date Menorrhagia with regular cycle 03/15/2017 1 03/03/2017 Overview: Added automatically from request for surgery [id number] History of pulmonary embolism 04/25/2016 Neoplastic (malignant) [...] FOLLOW-UP 10/27/20122015 Overview: 32 yo female from [place], [place]. Family involved with care, at bedside. plan to discharge patient home - will arrange with case management for post op care as needed - follow up in OPD in 7-10 days Post-op pain 10/27/2012 12/26/2015 Overview: currently well controlled with [employer]. will start PO pain meds today 10/27. tolerating percocet, pain relatively well controlled. Hodgkin's disease with nodular sclerosis 013 12/26/2015 Overview: Oncology history (per Dr. 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 Hodgkin's disease, unspecified 02/05/2012 0 05/11/2014 Vaginal bleeding 12/26/2015 Overview: --likely from thrombocytopenia. No menses in prior 8 months. Scant amount reported on 03/29 and 03/30, now resolved --monitor bleeding by counting pads --should f/u with her [employer] provider after BMT Premature menopause 12/26/2015 Postmenopausal atrophic vaginitis 12/26/2015 Dyspareunia 12/26/2015 documented as of this encounter (statuses as of 09/11/2021) [facility] History of Past illness Narrative* Problem Noted Date Resolved Date Menorrhagia with regular cycle 03/15/2017 1 03/03/2017 Overview: Added automatically from request for surgery [id number] History of pulmonary embolism 04/25/2016 Neoplastic (malignant) [...] FOLLOW-UP 10/27/20122015 Overview: 32 yo female from [place], [place]. Family involved with care, at bedside. plan to discharge patient home - will arrange with case management for post op care as needed - follow up in OPD in 7-10 days Post-op pain 10/27/2012 12/26/2015 Overview: currently well controlled with [employer]. will start PO pain meds today 10/27. tolerating percocet, pain relatively well controlled. Hodgkin's disease with nodular sclerosis 013 12/26/2015 Overview: Oncology history (per Dr. 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 Hodgkin's disease, unspecified 02/05/2012 0 05/11/2014 Vaginal bleeding 12/26/2015 Overview: --likely from thrombocytopenia. No menses in prior 8 months. Scant amount reported on 03/29 and 03/30, now resolved --monitor bleeding by counting pads --should f/u with her [employer] provider after BMT Premature menopause 12/26/2015 Postmenopausal atrophic vaginitis 12/26/2015 Dyspareunia 12/26/2015 documented as of this encounter (statuses as of 09/22/2021) [facility] History of Past illness Narrative* Problem Noted Date Resolved Date Menorrhagia with regular cycle 03/15/2017 1 03/03/2017 Overview: Added automatically from request for surgery [id number] History of pulmonary embolism 04/25/2016 Neoplastic (malignant) [...] FOLLOW-UP 10/27/20122015 Overview: 32 yo female from [place]. Family involved with care, at bedside. plan to discharge patient home - will arrange with case management for post op care as needed - follow up in OPD in 7-10 days Post-op pain 10/27/2012 12/26/2015 Overview: currently well controlled with [employer]. will start PO pain meds today 10/27. tolerating percocet, pain relatively well controlled. Hodgkin's disease with nodular sclerosis 013 12/26/2015 Overview: Oncology history (per Dr. 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 Hodgkin's disease, unspecified 02/05/2012 0 05/11/2014 Vaginal bleeding 12/26/2015 Overview: --likely from thrombocytopenia. No menses in prior 8 months. Scant amount reported on 03/29 and 03/30, now resolved --monitor bleeding by counting pads --should f/u with her [employer] provider after BMT Premature menopause 12/26/2015 Postmenopausal atrophic vaginitis 12/26/2015 Dyspareunia 12/26/2015 documented as of this encounter (statuses as of 09/22/2021) [facility] History of Past illness Narrative* Problem Noted Date Resolved Date Menorrhagia with regular cycle 03/15/2017 1 03/03/2017 Overview: Added automatically from request for surgery [id number] History of pulmonary embolism 04/25/2016 Neoplastic (malignant) [...] FOLLOW-UP 10/27/20122015 Overview: 32 yo female from [place], [place]. Family involved with care, at bedside. plan to discharge patient home - will arrange with case management for post op care as needed - follow up in OPD in 7-10 days Post-op pain 10/27/2012 12/26/2015 Overview: currently well controlled with [employer]. will start PO pain meds today 10/27. tolerating percocet, pain relatively well controlled. Hodgkin's disease with nodular sclerosis 013 12/26/2015 Overview: Oncology history (per Dr. 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 Hodgkin's disease, unspecified 02/05/2012 0 05/11/2014 Vaginal bleeding 12/26/2015 Overview: --likely from thrombocytopenia. No menses in prior 8 months. Scant amount reported on 03/29 and 03/30, now resolved --monitor bleeding by counting pads --should f/u with her [employer] provider after BMT Premature menopause 12/26/2015 Postmenopausal atrophic vaginitis 12/26/2015 Dyspareunia 12/26/2015 documented as of this encounter (statuses as of 10/02/2021) [facility] History of Past illness Narrative* Problem Noted Date Resolved Date Menorrhagia with regular cycle 03/15/2017 1 03/03/2017 Overview: Added automatically from request for surgery [id number] History of pulmonary embolism 04/25/2016 Neoplastic (malignant) [...] FOLLOW-UP 10/27/20122015 Overview: 32 yo female from [place], [place]. Family involved with care, at bedside. plan to discharge patient home - will arrange with case management for post op care as needed - follow up in OPD in 7-10 days Post-op pain 10/27/2012 12/26/2015 Overview: currently well controlled with [employer]. will start PO pain meds today 10/27. tolerating percocet, pain relatively well controlled. Hodgkin's disease with nodular sclerosis 013 12/26/2015 Overview: Oncology history (per Dr. 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 Hodgkin's disease, unspecified 02/05/2012 0 05/11/2014 Vaginal bleeding 12/26/2015 Overview: --likely from thrombocytopenia. No menses in prior 8 months. Scant amount reported on 03/29 and 03/30, now resolved --monitor bleeding by counting pads --should f/u with her [employer] provider after BMT Premature menopause 12/26/2015 Postmenopausal atrophic vaginitis 12/26/2015 Dyspareunia 12/26/2015 documented as of this encounter (statuses as of 10/05/2021) [facility] History of Past illness Narrative* Problem Noted Date Resolved Date Menorrhagia with regular cycle 03/15/2017 1 03/03/2017 Overview: Added automatically from request for surgery [id number] History of pulmonary embolism 04/25/2016 Neoplastic (malignant) [...] FOLLOW-UP 10/27/20122015 Overview: 32 yo female from [place]. Family involved with care, at bedside. plan to discharge patient home - will arrange with case management for post op care as needed - follow up in OPD in 7-10 days Post-op pain 10/27/2012 12/26/2015 Overview: currently well controlled with [employer]. will start PO pain meds today 10/27. tolerating percocet, pain relatively well controlled. Hodgkin's disease with nodular sclerosis 013 12/26/2015 Overview: Oncology history (per Dr. 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 Hodgkin's disease, unspecified 02/05/2012 0 05/11/2014 Vaginal bleeding 12/26/2015 Overview: --likely from thrombocytopenia. No menses in prior 8 months. Scant amount reported on 03/29 and 03/30, now resolved --monitor bleeding by counting pads --should f/u with her [employer] provider after BMT Premature menopause 12/26/2015 Postmenopausal atrophic vaginitis 12/26/2015 Dyspareunia 12/26/2015 documented as of this encounter (statuses as of 10/16/2021) [facility] History of Past illness Narrative* Problem Noted Date Resolved Date Menorrhagia with regular cycle 03/15/2017 1 03/03/2017 Overview: Added automatically from request for surgery [id number] History of pulmonary embolism 04/25/2016 Neoplastic (malignant) [...] FOLLOW-UP 10/27/20122015 Overview: 32 yo female from [place]. Family involved with care, at bedside. plan to discharge patient home - will arrange with case management for post op care as needed - follow up in OPD in 7-10 days Post-op pain 10/27/2012 12/26/2015 Overview: currently well controlled with [employer]. will start PO pain meds today 10/27. tolerating percocet, pain relatively well controlled. Hodgkin's disease with nodular sclerosis 013 12/26/2015 Overview: Oncology history (per Dr. 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 Hodgkin's disease, unspecified 02/05/2012 0 05/11/2014 Vaginal bleeding 12/26/2015 Overview: --likely from thrombocytopenia. No menses in prior 8 months. Scant amount reported on 03/29 and 03/30, now resolved --monitor bleeding by counting pads --should f/u with her [employer] provider after BMT Premature menopause 12/26/2015 Postmenopausal atrophic vaginitis 12/26/2015 Dyspareunia 12/26/2015 documented as of this encounter (statuses as of 10/18/2021) [facility] History of Past illness Narrative* Problem Noted Date Resolved Date Menorrhagia with regular cycle 03/15/2017 1 03/03/2017 Overview: Added automatically from request for surgery [id number] History of pulmonary embolism 04/25/2016 Neoplastic (malignant) [...] FOLLOW-UP 10/27/20122015 Overview: 32 yo female from [place]. Family involved with care, at bedside. plan to discharge patient home - will arrange with case management for post op care as needed - follow up in OPD in 7-10 days Post-op pain 10/27/2012 12/26/2015 Overview: currently well controlled with [employer]. will start PO pain meds today 10/27. tolerating percocet, pain relatively well controlled. Hodgkin's disease with nodular sclerosis 013 12/26/2015 Overview: Oncology history (per Dr. 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 Hodgkin's disease, unspecified 02/05/2012 0 05/11/2014 Vaginal bleeding 12/26/2015 Overview: --likely from thrombocytopenia. No menses in prior 8 months. Scant amount reported on 03/29 and 03/30, now resolved --monitor bleeding by counting pads --should f/u with her [employer] provider after BMT Premature menopause 12/26/2015 Postmenopausal atrophic vaginitis 12/26/2015 Dyspareunia 12/26/2015 documented as of this encounter (statuses as of 10/25/2021) [facility] History of Past illness Narrative* Problem Noted Date Resolved Date Menorrhagia with regular cycle 03/15/2017 1 03/03/2017 Overview: Added automatically from request for surgery [id number] History of pulmonary embolism 04/25/2016 Neoplastic (malignant) [...] FOLLOW-UP 10/27/20122015 Overview: 32 yo female from [place]. Family involved with care, at bedside. plan to discharge patient home - will arrange with case management for post op care as needed - follow up in OPD in 7-10 days Post-op pain 10/27/2012 12/26/2015 Overview: currently well controlled with [employer]. will start PO pain meds today 10/27. tolerating percocet, pain relatively well controlled. Hodgkin's disease with nodular sclerosis 013 12/26/2015 Overview: Oncology history (per Dr. 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 Hodgkin's disease, unspecified 02/05/2012 0 05/11/2014 Vaginal bleeding 12/26/2015 Overview: --likely from thrombocytopenia. No menses in prior 8 months. Scant amount reported on 03/29 and 03/30, now resolved --monitor bleeding by counting pads --should f/u with her [employer] provider after BMT Premature menopause 12/26/2015 Postmenopausal atrophic vaginitis 12/26/2015 Dyspareunia 12/26/2015 documented as of this encounter (statuses as of 10/25/2021) [facility] of Past illness Narrative* Problem Noted Date Resolved Date Menorrhagia with regular cycle 03/15/2017 1 03/03/2017 Overview: Added automatically from request for surgery [id number] History of pulmonary embolism 04/25/2016 Neoplastic (malignant) [...] FOLLOW-UP 10/27/20122015 Overview: 32 yo female from [place]. Family involved with care, at bedside. plan to discharge patient home - will arrange with case management for post op care as needed - follow up in OPD in 7-10 days Post-op pain 10/27/2012 12/26/2015 Overview: currently well controlled with [employer]. will start PO pain meds today 10/27. tolerating percocet, pain relatively well controlled. Hodgkin's disease with nodular sclerosis 013 12/26/2015 Overview: Oncology history (per Dr. 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 Hodgkin's disease, unspecified 02/05/2012 0 05/11/2014 Vaginal bleeding 12/26/2015 Overview: --likely from thrombocytopenia. No menses in prior 8 months. Scant amount reported on 03/29 and 03/30, now resolved --monitor bleeding by counting pads --should f/u with her [employer] provider after BMT Premature menopause 12/26/2015 Postmenopausal atrophic vaginitis 12/26/2015 Dyspareunia 12/26/2015 documented as of this encounter (statuses as of 10/26/2021) [facility] of Past illness Narrative* Problem Noted Date Resolved Date Menorrhagia with regular cycle 03/15/2017 1 03/03/2017 Overview: Added automatically from request for surgery [id number] History of pulmonary embolism 04/25/2016 Neoplastic (malignant) [...] FOLLOW-UP 10/27/20122015 Overview: 32 yo female from [place]. Family involved with care, at bedside. plan to discharge patient home - will arrange with case management for post op care as needed - follow up in OPD in 7-10 days Post-op pain 10/27/2012 12/26/2015 Overview: currently well controlled with [employer]. will start PO pain meds today 10/27. tolerating percocet, pain relatively well controlled. Hodgkin's disease with nodular sclerosis 013 12/26/2015 Overview: Oncology history (per Dr. 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 Hodgkin's disease, unspecified 02/05/2012 0 05/11/2014 Vaginal bleeding 12/26/2015 Overview: --likely from thrombocytopenia. No menses in prior 8 months. Scant amount reported on 03/29 and 03/30, now resolved --monitor bleeding by counting pads --should f/u with her [employer] provider after BMT Premature menopause 12/26/2015 Postmenopausal atrophic vaginitis 12/26/2015 Dyspareunia 12/26/2015 documented as of this encounter (statuses as of 10/26/2021) [facility] of Past illness Narrative* Problem Noted Date Resolved Date Menorrhagia with regular cycle 03/15/2017 1 03/03/2017 Overview: Added automatically from request for surgery [id number] History of pulmonary embolism 04/25/2016 Neoplastic (malignant) [...] FOLLOW-UP 10/27/20122015 Overview: 32 yo female from [place]. Family involved with care, at bedside. plan to discharge patient home - will arrange with case management for post op care as needed - follow up in OPD in 7-10 days Post-op pain 10/27/2012 12/26/2015 Overview: currently well controlled with [employer]. will start PO pain meds today 10/27. tolerating percocet, pain relatively well controlled. Hodgkin's disease with nodular sclerosis 013 12/26/2015 Overview: Oncology history (per Dr. 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 Hodgkin's disease, unspecified 02/05/2012 0 05/11/2014 Vaginal bleeding 12/26/2015 Overview: --likely from thrombocytopenia. No menses in prior 8 months. Scant amount reported on 03/29 and 03/30, now resolved --monitor bleeding by counting pads --should f/u with her [employer] provider after BMT Premature menopause 12/26/2015 Postmenopausal atrophic vaginitis 12/26/2015 Dyspareunia 12/26/2015 documented as of this encounter (statuses as of 10/31/2021) [facility] of Past illness Narrative* Problem Noted Date Resolved Date Menorrhagia with regular cycle 03/15/2017 1 03/03/2017 Overview: Added automatically from request for surgery [id number] History of pulmonary embolism 04/25/2016 Neoplastic (malignant) [...] FOLLOW-UP 10/27/20122015 Overview: 32 yo female from [place]. Family involved with care, at bedside. plan to discharge patient home - will arrange with case management for post op care as needed - follow up in OPD in 7-10 days Post-op pain 10/27/2012 12/26/2015 Overview: currently well controlled with [employer]. will start PO pain meds today 10/27. tolerating percocet, pain relatively well controlled. Hodgkin's disease with nodular sclerosis 013 12/26/2015 Overview: Oncology history (per Dr. 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 Hodgkin's disease, unspecified 02/05/2012 0 05/11/2014 Vaginal bleeding 12/26/2015 Overview: --likely from thrombocytopenia. No menses in prior 8 months. Scant amount reported on 03/29 and 03/30, now resolved --monitor bleeding by counting pads --should f/u with her [employer] provider after BMT Premature menopause 12/26/2015 Postmenopausal atrophic vaginitis 12/26/2015 Dyspareunia 12/26/2015 documented as of this encounter (statuses as of 11/08/2021) [facility] of Past illness Narrative* Problem Noted Date Resolved Date Menorrhagia with regular cycle 03/15/2017 1 03/03/2017 Overview: Added automatically from request for surgery [id number] History of pulmonary embolism 04/25/2016 Neoplastic (malignant) [...] FOLLOW-UP 10/27/20122015 Overview: 32 yo female from [place]. Family involved with care, at bedside. plan to discharge patient home - will arrange with case management for post op care as needed - follow up in OPD in 7-10 days Post-op pain 10/27/2012 12/26/2015 Overview: currently well controlled with [employer]. will start PO pain meds today 10/27. tolerating percocet, pain relatively well controlled. Hodgkin's disease with nodular sclerosis 013 12/26/2015 Overview: Oncology history (per Dr. 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 Hodgkin's disease, unspecified 02/05/2012 0 05/11/2014 Vaginal bleeding 12/26/2015 Overview: --likely from thrombocytopenia. No menses in prior 8 months. Scant amount reported on 03/29 and 03/30, now resolved --monitor bleeding by counting pads --should f/u with her [employer] provider after BMT Premature menopause 12/26/2015 Postmenopausal atrophic vaginitis 12/26/2015 Dyspareunia 12/26/2015 documented as of this encounter (statuses as of 11/13/2021) [facility] History of Past illness Narrative* Problem Noted Date Resolved Date Menorrhagia with regular cycle 03/15/2017 1 03/03/2017 Overview: Added automatically from request for surgery [id number] History of pulmonary embolism 04/25/2016 Neoplastic (malignant) [...] FOLLOW-UP 10/27/20122015 Overview: 32 yo female from [place], [place]. Family involved with care, at bedside. plan to discharge patient home - will arrange with case management for post op care as needed - follow up in OPD in 7-10 days Post-op pain 10/27/2012 12/26/2015 Overview: currently well controlled with [employer]. will start PO pain meds today 10/27. tolerating percocet, pain relatively well controlled. Hodgkin's disease with nodular sclerosis 013 12/26/2015 Overview: Oncology history (per Dr. 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 Hodgkin's disease, unspecified 02/05/2012 0 05/11/2014 Vaginal bleeding 12/26/2015 Overview: --likely from thrombocytopenia. No menses in prior 8 months. Scant amount reported on 03/29 and 03/30, now resolved --monitor bleeding by counting pads --should f/u with her [employer] provider after BMT Premature menopause 12/26/2015 Postmenopausal atrophic vaginitis 12/26/2015 Dyspareunia 12/26/2015 documented as of this encounter (statuses as of 11/13/2021) [facility] History of Past illness Narrative* Problem Noted Date Resolved Date Menorrhagia with regular cycle 03/15/2017 1 03/03/2017 Overview: Added automatically from request for surgery [id number] History of pulmonary embolism 04/25/2016 Neoplastic (malignant) [...] FOLLOW-UP 10/27/20122015 Overview: 32 yo female from [place], [place]. Family involved with care, at bedside. plan to discharge patient home - will arrange with case management for post op care as needed - follow up in OPD in 7-10 days Post-op pain 10/27/2012 12/26/2015 Overview: currently well controlled with [employer]. will start PO pain meds today 10/27. tolerating percocet, pain relatively well controlled. Hodgkin's disease with nodular sclerosis 013 12/26/2015 Overview: Oncology history (per Dr. 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 Hodgkin's disease, unspecified 02/05/2012 0 05/11/2014 Vaginal bleeding 12/26/2015 Overview: --likely from thrombocytopenia. No menses in prior 8 months. Scant amount reported on 03/29 and 03/30, now resolved --monitor bleeding by counting pads --should f/u with her [employer] provider after BMT Premature menopause 12/26/2015 Postmenopausal atrophic vaginitis 12/26/2015 Dyspareunia 12/26/2015 documented as of this encounter (statuses as of 11/14/2021) [facility] History of Past illness Narrative* Problem Noted Date Resolved Date Menorrhagia with regular cycle 03/15/2017 1 03/03/2017 Overview: Added automatically from request for surgery [id number] History of pulmonary embolism 04/25/2016 Neoplastic (malignant) [...] FOLLOW-UP 10/27/20122015 Overview: 32 yo female from [place], [place]. Family involved with care, at bedside. plan to discharge patient home - will arrange with case management for post op care as needed - follow up in OPD in 7-10 days Post-op pain 10/27/2012 12/26/2015 Overview: currently well controlled with [employer]. will start PO pain meds today 10/27. tolerating percocet, pain relatively well controlled. Hodgkin's disease with nodular sclerosis 013 12/26/2015 Overview: Oncology history (per Dr. 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 Hodgkin's disease, unspecified 02/05/2012 0 05/11/2014 Vaginal bleeding 12/26/2015 Overview: --likely from thrombocytopenia. No menses in prior 8 months. Scant amount reported on 03/29 and 03/30, now resolved --monitor bleeding by counting pads --should f/u with her [employer] provider after BMT Premature menopause 12/26/2015 Postmenopausal atrophic vaginitis 12/26/2015 Dyspareunia 12/26/2015 documented as of this encounter (statuses as of 11/15/2021) [facility] History of Past illness Narrative* Problem Noted Date Resolved Date Menorrhagia with regular cycle 03/15/2017 1 03/03/2017 Overview: Added automatically from request for surgery [id number] History of pulmonary embolism 04/25/2016 Neoplastic (malignant) [...] FOLLOW-UP 10/27/20122015 Overview: 32 yo female from [place]. Family involved with care, at bedside. plan to discharge patient home - will arrange with case management for post op care as needed - follow up in OPD in 7-10 days Post-op pain 10/27/2012 12/26/2015 Overview: currently well controlled with [employer]. will start PO pain meds today 10/27. tolerating percocet, pain relatively well controlled. Hodgkin's disease with nodular sclerosis 013 12/26/2015 Overview: Oncology history (per Dr. 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 Hodgkin's disease, unspecified 02/05/2012 0 05/11/2014 Vaginal bleeding 12/26/2015 Overview: --likely from thrombocytopenia. No menses in prior 8 months. Scant amount reported on 03/29 and 03/30, now resolved --monitor bleeding by counting pads --should f/u with her [employer] provider after BMT Premature menopause 12/26/2015 Postmenopausal atrophic vaginitis 12/26/2015 Dyspareunia 12/26/2015 documented as of this encounter (statuses as of 11/15/2021) [facility] History of Past illness Narrative* Problem Noted Date Resolved Date Menorrhagia with regular cycle 03/15/2017 1 03/03/2017 Overview: Added automatically from request for surgery [id number] History of pulmonary embolism 04/25/2016 Neoplastic (malignant) [...] FOLLOW-UP 10/27/20122015 Overview: 32 yo female from [place]. Family involved with care, at bedside. plan to discharge patient home - will arrange with case management for post op care as needed - follow up in OPD in 7-10 days Post-op pain 10/27/2012 12/26/2015 Overview: currently well controlled with [employer]. will start PO pain meds today 10/27. tolerating percocet, pain relatively well controlled. Hodgkin's disease with nodular sclerosis 013 12/26/2015 Overview: Oncology history (per Dr. 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 Hodgkin's disease, unspecified 02/05/2012 0 05/11/2014 Vaginal bleeding 12/26/2015 Overview: --likely from thrombocytopenia. No menses in prior 8 months. Scant amount reported on 03/29 and 03/30, now resolved --monitor bleeding by counting pads --should f/u with her [employer] provider after BMT Premature menopause 12/26/2015 Postmenopausal atrophic vaginitis 12/26/2015 Dyspareunia 12/26/2015 documented as of this encounter (statuses as of 12/04/2021) [facility] History of Past illness Narrative* Problem Noted Date Resolved Date Menorrhagia with regular cycle 03/15/2017 1 03/03/2017 Overview: Added automatically from request for surgery [id number] History of pulmonary embolism 04/25/2016 Neoplastic (malignant) [...] FOLLOW-UP 10/27/20122015 Overview: 32 yo female from [place]. Family involved with care, at bedside. plan to discharge patient home - will arrange with case management for post op care as needed - follow up in OPD in 7-10 days Post-op pain 10/27/2012 12/26/2015 Overview: currently well controlled with [employer]. will start PO pain meds today 10/27. tolerating percocet, pain relatively well controlled. Hodgkin's disease with nodular sclerosis 013 12/26/2015 Overview: Oncology history (per Dr. 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 Hodgkin's disease, unspecified 02/05/2012 0 05/11/2014 Vaginal bleeding 12/26/2015 Overview: --likely from thrombocytopenia. No menses in prior 8 months. Scant amount reported on 03/29 and 03/30, now resolved --monitor bleeding by counting pads --should f/u with her [employer] provider after BMT Premature menopause 12/26/2015 Postmenopausal atrophic vaginitis 12/26/2015 Dyspareunia 12/26/2015 documented as of this encounter (statuses as of 12/05/2021) [facility] History of Past illness Narrative* Problem Noted Date Resolved Date Menorrhagia with regular cycle 03/15/2017 1 03/03/2017 Overview: Added automatically from request for surgery [id number] History of pulmonary embolism 04/25/2016 Neoplastic (malignant) [...] FOLLOW-UP 10/27/20122015 Overview: 32 yo female from [place]. Family involved with care, at bedside. plan to discharge patient home - will arrange with case management for post op care as needed - follow up in OPD in 7-10 days Post-op pain 10/27/2012 12/26/2015 Overview: currently well controlled with [employer]. will start PO pain meds today 10/27. tolerating percocet, pain relatively well controlled. Hodgkin's disease with nodular sclerosis 013 12/26/2015 Overview: Oncology history (per Dr. 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 Hodgkin's disease, unspecified 02/05/2012 0 05/11/2014 Vaginal bleeding 12/26/2015 Overview: --likely from thrombocytopenia. No menses in prior 8 months. Scant amount reported on 03/29 and 03/30, now resolved --monitor bleeding by counting pads --should f/u with her [employer] provider after BMT Premature menopause 12/26/2015 Postmenopausal atrophic vaginitis 12/26/2015 Dyspareunia 12/26/2015 documented as of this encounter (statuses as of 12/06/2021) [facility] History of Past illness Narrative* Problem Noted Date Resolved Date Menorrhagia with regular cycle 03/15/2017 1 03/03/2017 Overview: Added automatically from request for surgery [id number] History of pulmonary embolism 04/25/2016 Neoplastic (malignant) [...] FOLLOW-UP 10/27/20122015 Overview: 32 yo female from [place]. Family involved with care, at bedside. plan to discharge patient home - will arrange with case management for post op care as needed - follow up in OPD in 7-10 days Post-op pain 10/27/2012 12/26/2015 Overview: currently well controlled with [employer]. will start PO pain meds today 10/27. tolerating percocet, pain relatively well controlled. Hodgkin's disease with nodular sclerosis 013 12/26/2015 Overview: Oncology history (per Dr. 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 Hodgkin's disease, unspecified 02/05/2012 0 05/11/2014 Vaginal bleeding 12/26/2015 Overview: --likely from thrombocytopenia. No menses in prior 8 months. Scant amount reported on 03/29 and 03/30, now resolved --monitor bleeding by counting pads --should f/u with her [employer] provider after BMT Premature menopause 12/26/2015 Postmenopausal atrophic vaginitis 12/26/2015 Dyspareunia 12/26/2015 documented as of this encounter (statuses as of 12/07/2021) [facility] History of Past illness Narrative* Problem Noted Date Resolved Date Menorrhagia with regular cycle 03/15/2017 1 03/03/2017 Overview: Added automatically from request for surgery [id number] History of pulmonary embolism 04/25/2016 Neoplastic (malignant) [...] FOLLOW-UP 10/27/20122015 Overview: 32 yo female from [place]. Family involved with care, at bedside. plan to discharge patient home - will arrange with case management for post op care as needed - follow up in OPD in 7-10 days Post-op pain 10/27/2012 12/26/2015 Overview: currently well controlled with [employer]. will start PO pain meds today 10/27. tolerating percocet, pain relatively well controlled. Hodgkin's disease with nodular sclerosis 013 12/26/2015 Overview: Oncology history (per Dr. 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 Hodgkin's disease, unspecified 02/05/2012 0 05/11/2014 Vaginal bleeding 12/26/2015 Overview: --likely from thrombocytopenia. No menses in prior 8 months. Scant amount reported on 03/29 and 03/30, now resolved --monitor bleeding by counting pads --should f/u with her [employer] provider after BMT Premature menopause 12/26/2015 Postmenopausal atrophic vaginitis 12/26/2015 Dyspareunia 12/26/2015 documented as of this encounter (statuses as of 12/12/2021) [facility] History of Past illness Narrative* Problem Noted Date Resolved Date Menorrhagia with regular cycle 03/15/2017 1 03/03/2017 Overview: Added automatically from request for surgery [id number] History of pulmonary embolism 04/25/2016 Neoplastic (malignant) [...] FOLLOW-UP 10/27/20122015 Overview: 32 yo female from [place]. Family involved with care, at bedside. plan to discharge patient home - will arrange with case management for post op care as needed - follow up in OPD in 7-10 days Post-op pain 10/27/2012 12/26/2015 Overview: currently well controlled with [employer]. will start PO pain meds today 10/27. tolerating percocet, pain relatively well controlled. Hodgkin's disease with nodular sclerosis 013 12/26/2015 Overview: Oncology history (per Dr. 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 Hodgkin's disease, unspecified 02/05/2012 0 05/11/2014 Vaginal bleeding 12/26/2015 Overview: --likely from thrombocytopenia. No menses in prior 8 months. Scant amount reported on 03/29 and 03/30, now resolved --monitor bleeding by counting pads --should f/u with her [employer] provider after BMT Premature menopause 12/26/2015 Postmenopausal atrophic vaginitis 12/26/2015 Dyspareunia 12/26/2015 documented as of this encounter (statuses as of 12/18/2021) [facility] History of Past illness Narrative* Problem Noted Date Resolved Date Menorrhagia with regular cycle 03/15/2017 1 03/03/2017 Overview: Added automatically from request for surgery [id number] History of pulmonary embolism 04/25/2016 Neoplastic (malignant) [...] FOLLOW-UP 10/27/20122015 Overview: 32 yo female from [place]. Family involved with care, at bedside. plan to discharge patient home - will arrange with case management for post op care as needed - follow up in OPD in 7-10 days Post-op pain 10/27/2012 12/26/2015 Overview: currently well controlled with [employer]. will start PO pain meds today 10/27. tolerating percocet, pain relatively well controlled. Hodgkin's disease with nodular sclerosis 013 12/26/2015 Overview: Oncology history (per Dr. 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 Hodgkin's disease, unspecified 02/05/2012 0 05/11/2014 Vaginal bleeding 12/26/2015 Overview: --likely from thrombocytopenia. No menses in prior 8 months. Scant amount reported on 03/29 and 03/30, now resolved --monitor bleeding by counting pads --should f/u with her [employer] provider after BMT Premature menopause 12/26/2015 Postmenopausal atrophic vaginitis 12/26/2015 Dyspareunia 12/26/2015 documented as of this encounter (statuses as of 12/19/2021) [facility] of Past illness Narrative* Problem Noted Date Resolved Date Menorrhagia with regular cycle 03/15/2017 1 03/03/2017 Overview: Added automatically from request for surgery [id number] History of pulmonary embolism 04/25/2016 Neoplastic (malignant) [...] FOLLOW-UP 10/27/20122015 Overview: 32 yo female from [place]. Family involved with care, at bedside. plan to discharge patient home - will arrange with case management for post op care as needed - follow up in OPD in 7-10 days Post-op pain 10/27/2012 12/26/2015 Overview: currently well controlled with [employer]. will start PO pain meds today 10/27. tolerating percocet, pain relatively well controlled. Hodgkin's disease with nodular sclerosis 013 12/26/2015 Overview: Oncology history (per Dr. 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 Hodgkin's disease, unspecified 02/05/2012 0 05/11/2014 Vaginal bleeding 12/26/2015 Overview: --likely from thrombocytopenia. No menses in prior 8 months. Scant amount reported on 03/29 and 03/30, now resolved --monitor bleeding by counting pads --should f/u with her [employer] provider after BMT Premature menopause 12/26/2015 Postmenopausal atrophic vaginitis 12/26/2015 Dyspareunia 12/26/2015 documented as of this encounter (statuses as of 12/27/2021) [facility] of Past illness Narrative* Problem Noted Date Resolved Date Menorrhagia with regular cycle 03/15/2017 1 03/03/2017 Overview: Added automatically from request for surgery [id number] History of pulmonary embolism 04/25/2016 Neoplastic (malignant) [...] FOLLOW-UP 10/27/20122015 Overview: 32 yo female from [place]. Family involved with care, at bedside. plan to discharge patient home - will arrange with case management for post op care as needed - follow up in OPD in 7-10 days Post-op pain 10/27/2012 12/26/2015 Overview: currently well controlled with [employer]. will start PO pain meds today 10/27. tolerating percocet, pain relatively well controlled. Hodgkin's disease with nodular sclerosis 013 12/26/2015 Overview: Oncology history (per Dr. 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 Hodgkin's disease, unspecified 02/05/2012 0 05/11/2014 Vaginal bleeding 12/26/2015 Overview: --likely from thrombocytopenia. No menses in prior 8 months. Scant amount reported on 03/29 and 03/30, now resolved --monitor bleeding by counting pads --should f/u with her [employer] provider after BMT Premature menopause 12/26/2015 Postmenopausal atrophic vaginitis 12/26/2015 Dyspareunia 12/26/2015 documented as of this encounter (statuses as of 12/31/2021) [facility] of Past illness Narrative* Problem Noted Date Resolved Date Menorrhagia with regular cycle 03/15/2017 1 03/03/2017 Overview: Added automatically from request for surgery [id number] History of pulmonary embolism 04/25/2016 Neoplastic (malignant) [...] FOLLOW-UP 10/27/20122015 Overview: 32 yo female from [place]. Family involved with care, at bedside. plan to discharge patient home - will arrange with case management for post op care as needed - follow up in OPD in 7-10 days Post-op pain 10/27/2012 12/26/2015 Overview: currently well controlled with [employer]. will start PO pain meds today 10/27. tolerating percocet, pain relatively well controlled. Hodgkin's disease with nodular sclerosis 013 12/26/2015 Overview: Oncology history (per Dr. 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 Hodgkin's disease, unspecified 02/05/2012 0 05/11/2014 Vaginal bleeding 12/26/2015 Overview: --likely from thrombocytopenia. No menses in prior 8 months. Scant amount reported on 03/29 and 03/30, now resolved --monitor bleeding by counting pads --should f/u with her [employer] provider after BMT Premature menopause 12/26/2015 Postmenopausal atrophic vaginitis 12/26/2015 Dyspareunia 12/26/2015 documented as of this encounter (statuses as of 01/08/2022) [facility] Past [facility] Narrative* Problem Noted Date Resolved Date Menorrhagia with regular cycle 03/15/2017 1 03/03/2017 Overview: Added automatically from request for surgery [id number] History of pulmonary embolism 04/25/2016 Neoplastic (malignant) [...] FOLLOW-UP 10/27/20122015 Overview: 32 yo female from [place]. Family involved with care, at bedside. plan to discharge patient home - will arrange with case management for post op care as needed - follow up in OPD in 7-10 days Post-op pain 10/27/2012 12/26/2015 Overview: currently well controlled with [employer]. will start PO pain meds today 10/27. tolerating percocet, pain relatively well controlled. Hodgkin's disease with nodular sclerosis 013 12/26/2015 Overview: Oncology history (per Dr. 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 Hodgkin's disease, unspecified 02/05/2012 0 05/11/2014 Vaginal bleeding 12/26/2015 Overview: --likely from thrombocytopenia. No menses in prior 8 months. Scant amount reported on 03/29 and 03/30, now resolved --monitor bleeding by counting pads --should f/u with her [employer] provider after BMT Premature menopause 12/26/2015 Postmenopausal atrophic vaginitis 12/26/2015 Dyspareunia 12/26/2015 documented as of this encounter (statuses as of 01/16/2022) [facility] History of Past illness Narrative* Problem Noted Date Resolved Date Menorrhagia with regular cycle 03/15/2017 1 03/03/2017 Overview: Added automatically from request for surgery [id number] History of pulmonary embolism 04/25/2016 Neoplastic (malignant) [...] FOLLOW-UP 10/27/20122015 Overview: 32 yo female from [place], [place]. Family involved with care, at bedside. plan to discharge patient home - will arrange with case management for post op care as needed - follow up in OPD in 7-10 days Post-op pain 10/27/2012 12/26/2015 Overview: currently well controlled with [employer]. will start PO pain meds today 10/27. tolerating percocet, pain relatively well controlled. Hodgkin's disease with nodular sclerosis 013 12/26/2015 Overview: Oncology history (per Dr. 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 Hodgkin's disease, unspecified 02/05/2012 0 05/11/2014 Vaginal bleeding 12/26/2015 Overview: --likely from thrombocytopenia. No menses in prior 8 months. Scant amount reported on 03/29 and 03/30, now resolved --monitor bleeding by counting pads --should f/u with her [employer] provider after BMT Premature menopause 12/26/2015 Postmenopausal atrophic vaginitis 12/26/2015 Dyspareunia 12/26/2015 documented as of this encounter (statuses as of 01/16/2022) [facility] History of Past illness Narrative* Problem Noted Date Resolved Date Menorrhagia with regular cycle 03/15/2017 1 03/03/2017 Overview: Added automatically from request for surgery [id number] History of pulmonary embolism 04/25/2016 Neoplastic (malignant) [...] FOLLOW-UP 10/27/20122015 Overview: 32 yo female from [place], [place]. Family involved with care, at bedside. plan to discharge patient home - will arrange with case management for post op care as needed - follow up in OPD in 7-10 days Post-op pain 10/27/2012 12/26/2015 Overview: currently well controlled with [employer]. will start PO pain meds today 10/27. tolerating percocet, pain relatively well controlled. Hodgkin's disease with nodular sclerosis 013 12/26/2015 Overview: Oncology history (per Dr. 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 Hodgkin's disease, unspecified 02/05/2012 0 05/11/2014 Vaginal bleeding 12/26/2015 Overview: --likely from thrombocytopenia. No menses in prior 8 months. Scant amount reported on 03/29 and 03/30, now resolved --monitor bleeding by counting pads --should f/u with her [employer] provider after BMT Premature menopause 12/26/2015 Postmenopausal atrophic vaginitis 12/26/2015 Dyspareunia 12/26/2015 documented as of this encounter (statuses as of 01/17/2022) [facility] History of Past illness Narrative* Problem Noted Date Resolved Date Menorrhagia with regular cycle 03/15/2017 1 03/03/2017 Overview: Added automatically from request for surgery [id number] History of pulmonary embolism 04/25/2016 Neoplastic (malignant) [...] FOLLOW-UP 10/27/20122015 Overview: 32 yo female from [place], [place]. Family involved with care, at bedside. plan to discharge patient home - will arrange with case management for post op care as needed - follow up in OPD in 7-10 days Post-op pain 10/27/2012 12/26/2015 Overview: currently well controlled with [employer]. will start PO pain meds today 10/27. tolerating percocet, pain relatively well controlled. Hodgkin's disease with nodular sclerosis 013 12/26/2015 Overview: Oncology history (per Dr. 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 Hodgkin's disease, unspecified 02/05/2012 0 05/11/2014 Vaginal bleeding 12/26/2015 Overview: --likely from thrombocytopenia. No menses in prior 8 months. Scant amount reported on 03/29 and 03/30, now resolved --monitor bleeding by counting pads --should f/u with her [employer] provider after BMT Premature menopause 12/26/2015 Postmenopausal atrophic vaginitis 12/26/2015 Dyspareunia 12/26/2015 documented as of this encounter (statuses as of 01/18/2022) [facility] History of Past illness Narrative* Problem Noted Date Resolved Date Menorrhagia with regular cycle 03/15/2017 1 03/03/2017 Overview: Added automatically from request for surgery [id number] History of pulmonary embolism 04/25/2016 Neoplastic (malignant) [...] FOLLOW-UP 10/27/20122015 Overview: 32 yo female from [place]. Family involved with care, at bedside. plan to discharge patient home - will arrange with case management for post op care as needed - follow up in OPD in 7-10 days Post-op pain 10/27/2012 12/26/2015 Overview: currently well controlled with [employer]. will start PO pain meds today 10/27. tolerating percocet, pain relatively well controlled. Hodgkin's disease with nodular sclerosis 013 12/26/2015 Overview: Oncology history (per Dr. 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 Hodgkin's disease, unspecified 02/05/2012 0 05/11/2014 Vaginal bleeding 12/26/2015 Overview: --likely from thrombocytopenia. No menses in prior 8 months. Scant amount reported on 03/29 and 03/30, now resolved --monitor bleeding by counting pads --should f/u with her [employer] provider after BMT Premature menopause 12/26/2015 Postmenopausal atrophic vaginitis 12/26/2015 Dyspareunia 12/26/2015 documented as of this encounter (statuses as of 01/20/2022) [facility] History of Past illness Narrative* Problem Noted Date Resolved Date Menorrhagia with regular cycle 03/15/2017 1 03/03/2017 Overview: Added automatically from request for surgery [id number] History of pulmonary embolism 04/25/2016 Neoplastic (malignant) [...] FOLLOW-UP 10/27/20122015 Overview: 32 yo female from [place]. Family involved with care, at bedside. plan to discharge patient home - will arrange with case management for post op care as needed - follow up in OPD in 7-10 days Post-op pain 10/27/2012 12/26/2015 Overview: currently well controlled with [employer]. will start PO pain meds today 10/27. tolerating percocet, pain relatively well controlled. Hodgkin's disease with nodular sclerosis 013 12/26/2015 Overview: Oncology history (per Dr. 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 Hodgkin's disease, unspecified 02/05/2012 0 05/11/2014 Vaginal bleeding 12/26/2015 Overview: --likely from thrombocytopenia. No menses in prior 8 months. Scant amount reported on 03/29 and 03/30, now resolved --monitor bleeding by counting pads --should f/u with her [employer] provider after BMT Premature menopause 12/26/2015 Postmenopausal atrophic vaginitis 12/26/2015 Dyspareunia 12/26/2015 documented as of this encounter (statuses as of 01/22/2022) [facility] History of Past illness Narrative* Problem Noted Date Resolved Date Menorrhagia with regular cycle 03/15/2017 1 03/03/2017 Overview: Added automatically from request for surgery [id number] History of pulmonary embolism 04/25/2016 Neoplastic (malignant) [...] FOLLOW-UP 10/27/20122015 Overview: 32 yo female from [place]. Family involved with care, at bedside. plan to discharge patient home - will arrange with case management for post op care as needed - follow up in OPD in 7-10 days Post-op pain 10/27/2012 12/26/2015 Overview: currently well controlled with [employer]. will start PO pain meds today 10/27. tolerating percocet, pain relatively well controlled. Hodgkin's disease with nodular sclerosis 013 12/26/2015 Overview: Oncology history (per Dr. 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 Hodgkin's disease, unspecified 02/05/2012 0 05/11/2014 Vaginal bleeding 12/26/2015 Overview: --likely from thrombocytopenia. No menses in prior 8 months. Scant amount reported on 03/29 and 03/30, now resolved --monitor bleeding by counting pads --should f/u with her [employer] provider after BMT Premature menopause 12/26/2015 Postmenopausal atrophic vaginitis 12/26/2015 Dyspareunia 12/26/2015 documented as of this encounter (statuses as of 01/25/2022) [facility] History of Past illness Narrative* Problem Noted Date Resolved Date Menorrhagia with regular cycle 03/15/2017 1 03/03/2017 Overview: Added automatically from request for surgery [id number] History of pulmonary embolism 04/25/2016 Neoplastic (malignant) [...] FOLLOW-UP 10/27/20122015 Overview: 32 yo female from [place]. Family involved with care, at bedside. plan to discharge patient home - will arrange with case management for post op care as needed - follow up in OPD in 7-10 days Post-op pain 10/27/2012 12/26/2015 Overview: currently well controlled with [employer]. will start PO pain meds today 10/27. tolerating percocet, pain relatively well controlled. Hodgkin's disease with nodular sclerosis 013 12/26/2015 Overview: Oncology history (per Dr. 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 Hodgkin's disease, unspecified 02/05/2012 0 05/11/2014 Vaginal bleeding 12/26/2015 Overview: --likely from thrombocytopenia. No menses in prior 8 months. Scant amount reported on 03/29 and 03/30, now resolved --monitor bleeding by counting pads --should f/u with her [employer] provider after BMT Premature menopause 12/26/2015 Postmenopausal atrophic vaginitis 12/26/2015 Dyspareunia 12/26/2015 documented as of this encounter (statuses as of 02/11/2022) [facility] History of Past illness Narrative* Problem Noted Date Resolved Date Menorrhagia with regular cycle 03/15/2017 1 03/03/2017 Overview: Added automatically from request for surgery [id number] History of pulmonary embolism 04/25/2016 Neoplastic (malignant) [...] FOLLOW-UP 10/27/20122015 Overview: 32 yo female from [place]. Family involved with care, at bedside. plan to discharge patient home - will arrange with case management for post op care as needed - follow up in OPD in 7-10 days Post-op pain 10/27/2012 12/26/2015 Overview: currently well controlled with [employer]. will start PO pain meds today 10/27. tolerating percocet, pain relatively well controlled. Hodgkin's disease with nodular sclerosis 013 12/26/2015 Overview: Oncology history (per Dr. 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 Hodgkin's disease, unspecified 02/05/2012 0 05/11/2014 Vaginal bleeding 12/26/2015 Overview: --likely from thrombocytopenia. No menses in prior 8 months. Scant amount reported on 03/29 and 03/30, now resolved --monitor bleeding by counting pads --should f/u with her [employer] provider after BMT Premature menopause 12/26/2015 Postmenopausal atrophic vaginitis 12/26/2015 Dyspareunia 12/26/2015 documented as of this encounter (statuses as of 02/21/2022) [facility] of Past illness Narrative* Problem Noted Date Resolved Date Menorrhagia with regular cycle 03/15/2017 1 03/03/2017 Overview: Added automatically from request for surgery [id number] History of pulmonary embolism 04/25/2016 Neoplastic (malignant) [...] FOLLOW-UP 10/27/20122015 Overview: 32 yo female from [place]. Family involved with care, at bedside. plan to discharge patient home - will arrange with case management for post op care as needed - follow up in OPD in 7-10 days Post-op pain 10/27/2012 12/26/2015 Overview: currently well controlled with [employer]. will start PO pain meds today 10/27. tolerating percocet, pain relatively well controlled. Hodgkin's disease with nodular sclerosis 013 12/26/2015 Overview: Oncology history (per Dr. 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 Hodgkin's disease, unspecified 02/05/2012 0 05/11/2014 Vaginal bleeding 12/26/2015 Overview: --likely from thrombocytopenia. No menses in prior 8 months. Scant amount reported on 03/29 and 03/30, now resolved --monitor bleeding by counting pads --should f/u with her [employer] provider after BMT Premature menopause 12/26/2015 Postmenopausal atrophic vaginitis 12/26/2015 Dyspareunia 12/26/2015 documented as of this encounter (statuses as of 03/06/2022) [facility] of Past illness Narrative* Problem Noted Date Resolved Date Menorrhagia with regular cycle 03/15/2017 1 03/03/2017 Overview: Added automatically from request for surgery [id number] History of pulmonary embolism 04/25/2016 Neoplastic (malignant) [...] FOLLOW-UP 10/27/20122015 Overview: 32 yo female from [place]. Family involved with care, at bedside. plan to discharge patient home - will arrange with case management for post op care as needed - follow up in OPD in 7-10 days Post-op pain 10/27/2012 12/26/2015 Overview: currently well controlled with [employer]. will start PO pain meds today 10/27. tolerating percocet, pain relatively well controlled. Hodgkin's disease with nodular sclerosis 013 12/26/2015 Overview: Oncology history (per Dr. 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 Hodgkin's disease, unspecified 02/05/2012 0 05/11/2014 Vaginal bleeding 12/26/2015 Overview: --likely from thrombocytopenia. No menses in prior 8 months. Scant amount reported on 03/29 and 03/30, now resolved --monitor bleeding by counting pads --should f/u with her [employer] provider after BMT Premature menopause 12/26/2015 Postmenopausal atrophic vaginitis 12/26/2015 Dyspareunia 12/26/2015 documented as of this encounter (statuses as of 03/07/2022) [facility] of Past illness Narrative* Problem Noted Date Resolved Date Menorrhagia with regular cycle 03/15/2017 1 03/03/2017 Overview: Added automatically from request for surgery [id number] History of pulmonary embolism 04/25/2016 Neoplastic (malignant) [...] FOLLOW-UP 10/27/20122015 Overview: 32 yo female from [place]. Family involved with care, at bedside. plan to discharge patient home - will arrange with case management for post op care as needed - follow up in OPD in 7-10 days Post-op pain 10/27/2012 12/26/2015 Overview: currently well controlled with [employer]. will start PO pain meds today 10/27. tolerating percocet, pain relatively well controlled. Hodgkin's disease with nodular sclerosis 013 12/26/2015 Overview: Oncology history (per Dr. 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 Hodgkin's disease, unspecified 02/05/2012 0 05/11/2014 Vaginal bleeding 12/26/2015 Overview: --likely from thrombocytopenia. No menses in prior 8 months. Scant amount reported on 03/29 and 03/30, now resolved --monitor bleeding by counting pads --should f/u with her [employer] provider after BMT Premature menopause 12/26/2015 Postmenopausal atrophic vaginitis 12/26/2015 Dyspareunia 12/26/2015 documented as of this encounter (statuses as of 03/07/2022) [facility] of Past illness Narrative* Problem Noted Date Resolved Date Menorrhagia with regular cycle 03/15/2017 1 03/03/2017 Overview: Added automatically from request for surgery [id number] History of pulmonary embolism 04/25/2016 Neoplastic (malignant) [...] FOLLOW-UP 10/27/20122015 Overview: 32 yo female from [place]. Family involved with care, at bedside. plan to discharge patient home - will arrange with case management for post op care as needed - follow up in OPD in 7-10 days Post-op pain 10/27/2012 12/26/2015 Overview: currently well controlled with [employer]. will start PO pain meds today 10/27. tolerating percocet, pain relatively well controlled. Hodgkin's disease with nodular sclerosis 013 12/26/2015 Overview: Oncology history (per Dr. 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 Hodgkin's disease, unspecified 02/05/2012 0 05/11/2014 Vaginal bleeding 12/26/2015 Overview: --likely from thrombocytopenia. No menses in prior 8 months. Scant amount reported on 03/29 and 03/30, now resolved --monitor bleeding by counting pads --should f/u with her [employer] provider after BMT Premature menopause 12/26/2015 Postmenopausal atrophic vaginitis 12/26/2015 Dyspareunia 12/26/2015 documented as of this encounter (statuses as of 03/15/2022) [facility] Narrative* Problem Noted Date Resolved Date Menorrhagia with regular cycle 03/15/2017 1 03/03/2017 Overview: Added automatically from request for surgery [id number] History of pulmonary embolism 04/25/2016 Neoplastic (malignant) [...] FOLLOW-UP 10/27/20122015 Overview: 32 yo female from [place]. Family involved with care, at bedside. plan to discharge patient home - will arrange with case management for post op care as needed - follow up in OPD in 7-10 days Post-op pain 10/27/2012 12/26/2015 Overview: currently well controlled with [employer]. will start PO pain meds today 10/27. tolerating percocet, pain relatively well controlled. Hodgkin's disease with nodular sclerosis 013 12/26/2015 Overview: Oncology history (per Dr. 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 Hodgkin's disease, unspecified 02/05/2012 0 05/11/2014 Vaginal bleeding 12/26/2015 Overview: --likely from thrombocytopenia. No menses in prior 8 months. Scant amount reported on 03/29 and 03/30, now resolved --monitor bleeding by counting pads --should f/u with her [employer] provider after BMT Premature menopause 12/26/2015 Postmenopausal atrophic vaginitis 12/26/2015 Dyspareunia 12/26/2015 documented as of this encounter (statuses as of 03/15/2022) [facility] of Past illness Narrative* Problem Noted Date Resolved Date Menorrhagia with regular cycle 03/15/2017 1 03/03/2017 Overview: Added automatically from request for surgery [id number] History of pulmonary embolism 04/25/2016 Neoplastic (malignant) [...] FOLLOW-UP 10/27/20122015 Overview: 32 yo female from [place]. Family involved with care, at bedside. plan to discharge patient home - will arrange with case management for post op care as needed - follow up in OPD in 7-10 days Post-op pain 10/27/2012 12/26/2015 Overview: currently well controlled with [employer]. will start PO pain meds today 10/27. tolerating percocet, pain relatively well controlled. Hodgkin's disease with nodular sclerosis 013 12/26/2015 Overview: Oncology history (per Dr. 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 Hodgkin's disease, unspecified 02/05/2012 0 05/11/2014 Vaginal bleeding 12/26/2015 Overview: --likely from thrombocytopenia. No menses in prior 8 months. Scant amount reported on 03/29 and 03/30, now resolved --monitor bleeding by counting pads --should f/u with her [employer] provider after BMT Premature menopause 12/26/2015 Postmenopausal atrophic vaginitis 12/26/2015 Dyspareunia 12/26/2015 documented as of this encounter (statuses as of 03/19/2022) [facility] Past [facility] Narrative* Problem Noted Date Resolved Date Menorrhagia with regular cycle 03/15/2017 1 03/03/2017 Overview: Added automatically from request for surgery [id number] History of pulmonary embolism 04/25/2016 Neoplastic (malignant) [...] FOLLOW-UP 10/27/20122015 Overview: 32 yo female from [place]. Family involved with care, at bedside. plan to discharge patient home - will arrange with case management for post op care as needed - follow up in OPD in 7-10 days Post-op pain 10/27/2012 12/26/2015 Overview: currently well controlled with [employer]. will start PO pain meds today 10/27. tolerating percocet, pain relatively well controlled. Hodgkin's disease with nodular sclerosis 013 12/26/2015 Overview: Oncology history (per Dr. Unger's note): Stage IIIS nodular sclerosis classical Hodgkin lymphoma diagnosed 01/2012, status post ABVD x 6 cycles through 06/2012 (CR); recurrence in 10/2012; ICE x 3 cycles from 10/2012-11/2012 (transient SD, then disease progression in 12/2012); brentuximab vedotin x 2 cycles from 12/2012 (metabolic CR). Hodgkin's disease, unspecified 02/05/2012 0 05/11/2014 Vaginal bleeding 12/26/2015 Overview: --likely from thrombocytopenia. No menses in prior 8 months. Scant amount reported on 03/29 and 03/30, now resolved --monitor bleeding by counting pads --should f/u with her [employer] provider after BMT Premature menopause 12/26/2015 Postmenopausal atrophic vaginitis 12/26/2015 Dyspareunia 12/26/2015 documented as of this encounter (statuses as of 03/22/2022) [facility]01-[facility] History of Past illness Narrative* Problem Noted Date Resolved Date Menorrhagia with regular cycle 03/15/2017 1 03/03/2017 Overview: Added automatically from request for surgery [id number] History of pulmonary embolism 04/25/2016 Neoplastic (malignant) [...] FOLLOW-UP 10/27/20122015 Overview: 32 yo female from [place], [place]. Family involved with care, at bedside. plan to discharge patient home - will arrange with case management for post op care as needed - follow up in OPD in 7-10 days Post-op pain 10/27/2012 12/26/2015 Overview: currently well controlled with [employer]. will start PO pain meds today 10/27. tolerating percocet, pain relatively well controlled. Hodgkin's disease with nodular sclerosis 013 12/26/2015 Overview: Oncology history (per Dr. 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 Hodgkin's disease, unspecified 02/05/2012 0 05/11/2014 Vaginal bleeding 12/26/2015 Overview: --likely from thrombocytopenia. No menses in prior 8 months. Scant amount reported on 03/29 and 03/30, now resolved --monitor bleeding by counting pads --should f/u with her [employer] provider after BMT Premature menopause 12/26/2015 Postmenopausal atrophic vaginitis 12/26/2015 Dyspareunia 12/26/2015 documented as of this encounter (statuses as of 03/23/2022) [facility] History of Past illness Narrative* Problem Noted Date Resolved Date Menorrhagia with regular cycle 03/15/2017 1 03/03/2017 Overview: Added automatically from request for surgery [id number] History of pulmonary embolism 04/25/2016 Neoplastic (malignant) [...] FOLLOW-UP 10/27/20122015 Overview: 32 yo female from [place], [place]. Family involved with care, at bedside. plan to discharge patient home - will arrange with case management for post op care as needed - follow up in OPD in 7-10 days Post-op pain 10/27/2012 12/26/2015 Overview: currently well controlled with [employer]. will start PO pain meds today 10/27. tolerating percocet, pain relatively well controlled. Hodgkin's disease with nodular sclerosis 013 12/26/2015 Overview: Oncology history (per Dr. 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 Hodgkin's disease, unspecified 02/05/2012 0 05/11/2014 Vaginal bleeding 12/26/2015 Overview: --likely from thrombocytopenia. No menses in prior 8 months. Scant amount reported on 03/29 and 03/30, now resolved --monitor bleeding by counting pads --should f/u with her [employer] provider after BMT Premature menopause 12/26/2015 Postmenopausal atrophic vaginitis 12/26/2015 Dyspareunia 12/26/2015 documented as of this encounter (statuses as of 03/24/2022) [facility] History of Past illness Narrative* Problem Noted Date Resolved Date Menorrhagia with regular cycle 03/15/2017 1 03/03/2017 Overview: Added automatically from request for surgery [id number] History of pulmonary embolism 04/25/2016 Neoplastic (malignant) [...] FOLLOW-UP 10/27/20122015 Overview: 32 yo female from [place], [place]. Family involved with care, at bedside. plan to discharge patient home - will arrange with case management for post op care as needed - follow up in OPD in 7-10 days Post-op pain 10/27/2012 12/26/2015 Overview: currently well controlled with [employer]. will start PO pain meds today 10/27. tolerating percocet, pain relatively well controlled. Hodgkin's disease with nodular sclerosis 013 12/26/2015 Overview: Oncology history (per Dr. 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 Hodgkin's disease, unspecified 02/05/2012 0 05/11/2014 Vaginal bleeding 12/26/2015 Overview: --likely from thrombocytopenia. No menses in prior 8 months. Scant amount reported on 03/29 and 03/30, now resolved --monitor bleeding by counting pads --should f/u with her [employer] provider after BMT Premature menopause 12/26/2015 Postmenopausal atrophic vaginitis 12/26/2015 Dyspareunia 12/26/2015 documented as of this encounter (statuses as of 03/26/2022) [facility] History of Past illness Narrative* Problem Noted Date Resolved Date Menorrhagia with regular cycle 03/15/2017 1 03/03/2017 Overview: Added automatically from request for surgery [id number] History of pulmonary embolism 04/25/2016 Neoplastic (malignant) [...] FOLLOW-UP 10/27/20122015 Overview: 32 yo female from [place], [place]. Family involved with care, at bedside. plan to discharge patient home - will arrange with case management for post op care as needed - follow up in OPD in 7-10 days Post-op pain 10/27/2012 12/26/2015 Overview: currently well controlled with [employer]. will start PO pain meds today 10/27. tolerating percocet, pain relatively well controlled. Hodgkin's disease with nodular sclerosis 013 12/26/2015 Overview: Oncology history (per Dr. 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 Hodgkin's disease, unspecified 02/05/2012 0 05/11/2014 Vaginal bleeding 12/26/2015 Overview: --likely from thrombocytopenia. No menses in prior 8 months. Scant amount reported on 03/29 and 03/30, now resolved --monitor bleeding by counting pads --should f/u with her [employer] provider after BMT Premature menopause 12/26/2015 Postmenopausal atrophic vaginitis 12/26/2015 Dyspareunia 12/26/2015 documented as of this encounter (statuses as of 03/30/2022) [facility] History of Past illness Narrative* Problem Noted Date Resolved Date Menorrhagia with regular cycle 03/15/2017 1 03/03/2017 Overview: Added automatically from request for surgery [id number] History of pulmonary embolism 04/25/2016 Neoplastic (malignant) [...] FOLLOW-UP 10/27/20122015 Overview: 32 yo female from [place]. Family involved with care, at bedside. plan to discharge patient home - will arrange with case management for post op care as needed - follow up in OPD in 7-10 days Post-op pain 10/27/2012 12/26/2015 Overview: currently well controlled with [employer]. will start PO pain meds today 10/27. tolerating percocet, pain relatively well controlled. Hodgkin's disease with nodular sclerosis 013 12/26/2015 Overview: Oncology history (per Dr. 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 Hodgkin's disease, unspecified 02/05/2012 0 05/11/2014 Vaginal bleeding 12/26/2015 Overview: --likely from thrombocytopenia. No menses in prior 8 months. Scant amount reported on 03/29 and 03/30, now resolved --monitor bleeding by counting pads --should f/u with her [employer] provider after BMT Premature menopause 12/26/2015 Postmenopausal atrophic vaginitis 12/26/2015 Dyspareunia 12/26/2015 documented as of this encounter (statuses as of 04/01/2022) [facility] History of Past illness Narrative* Problem Noted Date Resolved Date Menorrhagia with regular cycle 03/15/2017 1 03/03/2017 Overview: Added automatically from request for surgery [id number] History of pulmonary embolism 04/25/2016 Neoplastic (malignant) [...] FOLLOW-UP 10/27/20122015 Overview: 32 yo female from [place], [place]. Family involved with care, at bedside. plan to discharge patient home - will arrange with case management for post op care as needed - follow up in OPD in 7-10 days Post-op pain 10/27/2012 12/26/2015 Overview: currently well controlled with [employer]. will start PO pain meds today 10/27. tolerating percocet, pain relatively well controlled. Hodgkin's disease with nodular sclerosis 013 12/26/2015 Overview: Oncology history (per Dr. 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 Hodgkin's disease, unspecified 02/05/2012 0 05/11/2014 Vaginal bleeding 12/26/2015 Overview: --likely from thrombocytopenia. No menses in prior 8 months. Scant amount reported on 03/29 and 03/30, now resolved --monitor bleeding by counting pads --should f/u with her [employer] provider after BMT Premature menopause 12/26/2015 Postmenopausal atrophic vaginitis 12/26/2015 Dyspareunia 12/26/2015 documented as of this encounter (statuses as of 04/10/2022) [facility] History of Past illness Narrative* Problem Noted Date Resolved Date Menorrhagia with regular cycle 03/15/2017 1 03/03/2017 Overview: Added automatically from request for surgery [id number] History of pulmonary embolism 04/25/2016 Neoplastic (malignant) [...] FOLLOW-UP 10/27/20122015 Overview: 32 yo female from [place]. Family involved with care, at bedside. plan to discharge patient home - will arrange with case management for post op care as needed - follow up in OPD in 7-10 days Post-op pain 10/27/2012 12/26/2015 Overview: currently well controlled with [employer]. will start PO pain meds today 10/27. tolerating percocet, pain relatively well controlled. Hodgkin's disease with nodular sclerosis 013 12/26/2015 Overview: Oncology history (per Dr. 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 Hodgkin's disease, unspecified 02/05/2012 0 05/11/2014 Vaginal bleeding 12/26/2015 Overview: --likely from thrombocytopenia. No menses in prior 8 months. Scant amount reported on 03/29 and 03/30, now resolved --monitor bleeding by counting pads --should f/u with her [employer] provider after BMT Premature menopause 12/26/2015 Postmenopausal atrophic vaginitis 12/26/2015 Dyspareunia 12/26/2015 documented as of this encounter (statuses as of 04/16/2022) [facility] History of Past illness Narrative* Problem Noted Date Resolved Date Menorrhagia with regular cycle 03/15/2017 1 03/03/2017 Overview: Added automatically from request for surgery [id number] History of pulmonary embolism 04/25/2016 Neoplastic (malignant) [...] FOLLOW-UP 10/27/20122015 Overview: 32 yo female from [place]. Family involved with care, at bedside. plan to discharge patient home - will arrange with case management for post op care as needed - follow up in OPD in 7-10 days Post-op pain 10/27/2012 12/26/2015 Overview: currently well controlled with [employer]. will start PO pain meds today 10/27. tolerating percocet, pain relatively well controlled. Hodgkin's disease with nodular sclerosis 013 12/26/2015 Overview: Oncology history (per Dr. 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 Hodgkin's disease, unspecified 02/05/2012 0 05/11/2014 Vaginal bleeding 12/26/2015 Overview: --likely from thrombocytopenia. No menses in prior 8 months. Scant amount reported on 03/29 and 03/30, now resolved --monitor bleeding by counting pads --should f/u with her [employer] provider after BMT Premature menopause 12/26/2015 Postmenopausal atrophic vaginitis 12/26/2015 Dyspareunia 12/26/2015 documented as of this encounter (statuses as of 04/17/2022) [facility] History of Past illness Narrative* Problem Noted Date Resolved Date Menorrhagia with regular cycle 03/15/2017 1 03/03/2017 Overview: Added automatically from request for surgery [id number] History of pulmonary embolism 04/25/2016 Neoplastic (malignant) [...] FOLLOW-UP 10/27/20122015 Overview: 32 yo female from [place]. Family involved with care, at bedside. plan to discharge patient home - will arrange with case management for post op care as needed - follow up in OPD in 7-10 days Post-op pain 10/27/2012 12/26/2015 Overview: currently well controlled with [employer]. will start PO pain meds today 10/27. tolerating percocet, pain relatively well controlled. Hodgkin's disease with nodular sclerosis 013 12/26/2015 Overview: Oncology history (per Dr. 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 Hodgkin's disease, unspecified 02/05/2012 0 05/11/2014 Vaginal bleeding 12/26/2015 Overview: --likely from thrombocytopenia. No menses in prior 8 months. Scant amount reported on 03/29 and 03/30, now resolved --monitor bleeding by counting pads --should f/u with her [employer] provider after BMT Premature menopause 12/26/2015 Postmenopausal atrophic vaginitis 12/26/2015 Dyspareunia 12/26/2015 documented as of this encounter (statuses as of 04/20/2022) [facility] History of Past illness Narrative* Problem Noted Date Resolved Date Menorrhagia with regular cycle 03/15/2017 1 03/03/2017 Overview: Added automatically from request for surgery [id number] History of pulmonary embolism 04/25/2016 Neoplastic (malignant) [...] FOLLOW-UP 10/27/20122015 Overview: 32 yo female from [place]. Family involved with care, at bedside. plan to discharge patient home - will arrange with case management for post op care as needed - follow up in OPD in 7-10 days Post-op pain 10/27/2012 12/26/2015 Overview: currently well controlled with [employer]. will start PO pain meds today 10/27. tolerating percocet, pain relatively well controlled. Hodgkin's disease with nodular sclerosis 013 12/26/2015 Overview: Oncology history (per Dr. 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 Hodgkin's disease, unspecified 02/05/2012 0 05/11/2014 Vaginal bleeding 12/26/2015 Overview: --likely from thrombocytopenia. No menses in prior 8 months. Scant amount reported on 03/29 and 03/30, now resolved --monitor bleeding by counting pads --should f/u with her [employer] provider after BMT Premature menopause 12/26/2015 Postmenopausal atrophic vaginitis 12/26/2015 Dyspareunia 12/26/2015 documented as of this encounter (statuses as of 04/23/2022) [facility] History of Past illness Narrative* Problem Noted Date Resolved Date Menorrhagia with regular cycle 03/15/2017 1 03/03/2017 Overview: Added automatically from request for surgery [id number] History of pulmonary embolism 04/25/2016 Neoplastic (malignant) [...] FOLLOW-UP 10/27/20122015 Overview: 32 yo female from [place]. Family involved with care, at bedside. plan to discharge patient home - will arrange with case management for post op care as needed - follow up in OPD in 7-10 days Post-op pain 10/27/2012 12/26/2015 Overview: currently well controlled with [employer]. will start PO pain meds today 10/27. tolerating percocet, pain relatively well controlled. Hodgkin's disease with nodular sclerosis 013 12/26/2015 Overview: Oncology history (per Dr. 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 Hodgkin's disease, unspecified 02/05/2012 0 05/11/2014 Vaginal bleeding 12/26/2015 Overview: --likely from thrombocytopenia. No menses in prior 8 months. Scant amount reported on 03/29 and 03/30, now resolved --monitor bleeding by counting pads --should f/u with her [employer] provider after BMT Premature menopause 12/26/2015 Postmenopausal atrophic vaginitis 12/26/2015 Dyspareunia 12/26/2015 documented as of this encounter (statuses as of 04/23/2022) [facility] of Past illness Narrative* Problem Noted Date Resolved Date Menorrhagia with regular cycle 03/15/2017 1 03/03/2017 Overview: Added automatically from request for surgery [id number] History of pulmonary embolism 04/25/2016 Neoplastic (malignant) [...] FOLLOW-UP 10/27/20122015 Overview: 32 yo female from [place]. Family involved with care, at bedside. plan to discharge patient home - will arrange with case management for post op care as needed - follow up in OPD in 7-10 days Post-op pain 10/27/2012 12/26/2015 Overview: currently well controlled with [employer]. will start PO pain meds today 10/27. tolerating percocet, pain relatively well controlled. Hodgkin's disease with nodular sclerosis 013 12/26/2015 Overview: Oncology history (per Dr. 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 Hodgkin's disease, unspecified 02/05/2012 0 05/11/2014 Vaginal bleeding 12/26/2015 Overview: --likely from thrombocytopenia. No menses in prior 8 months. Scant amount reported on 03/29 and 03/30, now resolved --monitor bleeding by counting pads --should f/u with her [employer] provider after BMT Premature menopause 12/26/2015 Postmenopausal atrophic vaginitis 12/26/2015 Dyspareunia 12/26/2015 documented as of this encounter (statuses as of 04/25/2022) [facility] of Past illness Narrative* Problem Noted Date Resolved Date Menorrhagia with regular cycle 03/15/2017 1 03/03/2017 Overview: Added automatically from request for surgery [id number] History of pulmonary embolism 04/25/2016 Neoplastic (malignant) [...] FOLLOW-UP 10/27/20122015 Overview: 32 yo female from [place]. Family involved with care, at bedside. plan to discharge patient home - will arrange with case management for post op care as needed - follow up in OPD in 7-10 days Post-op pain 10/27/2012 12/26/2015 Overview: currently well controlled with [employer]. will start PO pain meds today 10/27. tolerating percocet, pain relatively well controlled. Hodgkin's disease with nodular sclerosis 013 12/26/2015 Overview: Oncology history (per Dr. 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 Hodgkin's disease, unspecified 02/05/2012 0 05/11/2014 Vaginal bleeding 12/26/2015 Overview: --likely from thrombocytopenia. No menses in prior 8 months. Scant amount reported on 03/29 and 03/30, now resolved --monitor bleeding by counting pads --should f/u with her [employer] provider after BMT Premature menopause 12/26/2015 Postmenopausal atrophic vaginitis 12/26/2015 Dyspareunia 12/26/2015 documented as of this encounter (statuses as of 05/01/2022) [facility] Past illness Narrative* Problem Noted Date Resolved Date Menorrhagia with regular cycle 03/15/2017 1 03/03/2017 Overview: Added automatically from request for surgery [id number] History of pulmonary embolism 04/25/2016 Neoplastic (malignant) [...] FOLLOW-UP 10/27/20122015 Overview: 32 yo female from [place]. Family involved with care, at bedside. plan to discharge patient home - will arrange with case management for post op care as needed - follow up in OPD in 7-10 days Post-op pain 10/27/2012 12/26/2015 Overview: currently well controlled with [employer]. will start PO pain meds today 10/27. tolerating percocet, pain relatively well controlled. Hodgkin's disease with nodular sclerosis 013 12/26/2015 Overview: Oncology history (per Dr. 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 Hodgkin's disease, unspecified 02/05/2012 0 05/11/2014 Vaginal bleeding 12/26/2015 Overview: --likely from thrombocytopenia. No menses in prior 8 months. Scant amount reported on 03/29 and 03/30, now resolved --monitor bleeding by counting pads --should f/u with her [employer] provider after BMT Premature menopause 12/26/2015 Postmenopausal atrophic vaginitis 12/26/2015 Dyspareunia 12/26/2015 documented as of this encounter (statuses as of 05/15/2022) [facility] Past illness Narrative* Problem Noted Date Resolved Date Menorrhagia with regular cycle 03/15/2017 1 03/03/2017 Overview: Added automatically from request for surgery [id number] History of pulmonary embolism 04/25/2016 Neoplastic (malignant) [...] FOLLOW-UP 10/27/20122015 Overview: 32 yo female from [place]. Family involved with care, at bedside. plan to discharge patient home - will arrange with case management for post op care as needed - follow up in OPD in 7-10 days Post-op pain 10/27/2012 12/26/2015 Overview: currently well controlled with [employer]. will start PO pain meds today 10/27. tolerating percocet, pain relatively well controlled. Hodgkin's disease with nodular sclerosis 013 12/26/2015 Overview: Oncology history (per Dr. 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 Hodgkin's disease, unspecified 02/05/2012 0 05/11/2014 Vaginal bleeding 12/26/2015 Overview: --likely from thrombocytopenia. No menses in prior 8 months. Scant amount reported on 03/29 and 03/30, now resolved --monitor bleeding by counting pads --should f/u with her [employer] provider after BMT Premature menopause 12/26/2015 Postmenopausal atrophic vaginitis 12/26/2015 Dyspareunia 12/26/2015 documented as of this encounter (statuses as of 05/21/2022) [facility]01-[facility]-2018 History of Past illness Narrative* Problem Noted Date Resolved Date Menorrhagia with regular cycle 03/15/2017 1 03/03/2017 Overview: Added automatically from request for surgery [id number] History of pulmonary embolism 04/25/2016 Neoplastic (malignant) [...] FOLLOW-UP 10/27/20122015 Overview: 32 yo female from [place], [place]. Family involved with care, at bedside. plan to discharge patient home - will arrange with case management for post op care as needed - follow up in OPD in 7-10 days Post-op pain 10/27/2012 12/26/2015 Overview: currently well controlled with [employer]. will start PO pain meds today 10/27. tolerating percocet, pain relatively well controlled. Hodgkin's disease with nodular sclerosis 013 12/26/2015 Overview: Oncology history (per Dr. 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 Hodgkin's disease, unspecified 02/05/2012 0 05/11/2014 Vaginal bleeding 12/26/2015 Overview: --likely from thrombocytopenia. No menses in prior 8 months. Scant amount reported on 03/29 and 03/30, now resolved --monitor bleeding by counting pads --should f/u with her [employer] provider after BMT Premature menopause 12/26/2015 Postmenopausal atrophic vaginitis 12/26/2015 Dyspareunia 12/26/2015 documented as of this encounter (statuses as of 05/21/2022) [facility] History of Past illness Narrative* Problem Noted Date Resolved Date Menorrhagia with regular cycle 03/15/2017 1 03/03/2017 Overview: Added automatically from request for surgery [id number] History of pulmonary embolism 04/25/2016 Neoplastic (malignant) [...] FOLLOW-UP 10/27/20122015 Overview: 32 yo female from [place], [place]. Family involved with care, at bedside. plan to discharge patient home - will arrange with case management for post op care as needed - follow up in OPD in 7-10 days Post-op pain 10/27/2012 12/26/2015 Overview: currently well controlled with [employer]. will start PO pain meds today 10/27. tolerating percocet, pain relatively well controlled. Hodgkin's disease with nodular sclerosis 013 12/26/2015 Overview: Oncology history (per Dr. 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 Hodgkin's disease, unspecified 02/05/2012 0 05/11/2014 Vaginal bleeding 12/26/2015 Overview: --likely from thrombocytopenia. No menses in prior 8 months. Scant amount reported on 03/29 and 03/30, now resolved --monitor bleeding by counting pads --should f/u with her [employer] provider after BMT Premature menopause 12/26/2015 Postmenopausal atrophic vaginitis 12/26/2015 Dyspareunia 12/26/2015 documented as of this encounter (statuses as of 06/11/2022) [facility] History of Past illness Narrative* Problem Noted Date Resolved Date Menorrhagia with regular cycle 03/15/2017 1 03/03/2017 Overview: Added automatically from request for surgery [id number] History of pulmonary embolism 04/25/2016 Neoplastic (malignant) [...] FOLLOW-UP 10/27/20122015 Overview: 32 yo female from [place], [place]. Family involved with care, at bedside. plan to discharge patient home - will arrange with case management for post op care as needed - follow up in OPD in 7-10 days Post-op pain 10/27/2012 12/26/2015 Overview: currently well controlled with [employer]. will start PO pain meds today 10/27. tolerating percocet, pain relatively well controlled. Hodgkin's disease with nodular sclerosis 013 12/26/2015 Overview: Oncology history (per Dr. 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 Hodgkin's disease, unspecified 02/05/2012 0 05/11/2014 Vaginal bleeding 12/26/2015 Overview: --likely from thrombocytopenia. No menses in prior 8 months. Scant amount reported on 03/29 and 03/30, now resolved --monitor bleeding by counting pads --should f/u with her [employer] provider after BMT Premature menopause 12/26/2015 Postmenopausal atrophic vaginitis 12/26/2015 Dyspareunia 12/26/2015 documented as of this encounter (statuses as of 06/12/2022) [facility] History of Past illness Narrative* Problem Noted Date Resolved Date Menorrhagia with regular cycle 03/15/2017 1 03/03/2017 Overview: Added automatically from request for surgery [id number] History of pulmonary embolism 04/25/2016 Neoplastic (malignant) [...] FOLLOW-UP 10/27/20122015 Overview: 32 yo female from [place], [place]. Family involved with care, at bedside. plan to discharge patient home - will arrange with case management for post op care as needed - follow up in OPD in 7-10 days Post-op pain 10/27/2012 12/26/2015 Overview: currently well controlled with [employer]. will start PO pain meds today 10/27. tolerating percocet, pain relatively well controlled. Hodgkin's disease with nodular sclerosis 013 12/26/2015 Overview: Oncology history (per Dr. 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 Hodgkin's disease, unspecified 02/05/2012 0 05/11/2014 Vaginal bleeding 12/26/2015 Overview: --likely from thrombocytopenia. No menses in prior 8 months. Scant amount reported on 03/29 and 03/30, now resolved --monitor bleeding by counting pads --should f/u with her [employer] provider after BMT Premature menopause 12/26/2015 Postmenopausal atrophic vaginitis 12/26/2015 Dyspareunia 12/26/2015 documented as of this encounter (statuses as of 06/12/2022) [facility] History of Past illness Narrative* Problem Noted Date Resolved Date Menorrhagia with regular cycle 03/15/2017 1 03/03/2017 Overview: Added automatically from request for surgery [id number] History of pulmonary embolism 04/25/2016 Neoplastic (malignant) [...] FOLLOW-UP 10/27/20122015 Overview: 32 yo female from [place]. Family involved with care, at bedside. plan to discharge patient home - will arrange with case management for post op care as needed - follow up in OPD in 7-10 days Post-op pain 10/27/2012 12/26/2015 Overview: currently well controlled with [employer]. will start PO pain meds today 10/27. tolerating percocet, pain relatively well controlled. Hodgkin's disease with nodular sclerosis 013 12/26/2015 Overview: Oncology history (per Dr. 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 Hodgkin's disease, unspecified 02/05/2012 0 05/11/2014 Vaginal bleeding 12/26/2015 Overview: --likely from thrombocytopenia. No menses in prior 8 months. Scant amount reported on 03/29 and 03/30, now resolved --monitor bleeding by counting pads --should f/u with her [employer] provider after BMT Premature menopause 12/26/2015 Postmenopausal atrophic vaginitis 12/26/2015 Dyspareunia 12/26/2015 documented as of this encounter (statuses as of 06/12/2022) [facility] History of Past illness Narrative* Problem Noted Date Resolved Date Menorrhagia with regular cycle 03/15/2017 1 03/03/2017 Overview: Added automatically from request for surgery [id number] History of pulmonary embolism 04/25/2016 Neoplastic (malignant) [...] FOLLOW-UP 10/27/20122015 Overview: 32 yo female from [place]. Family involved with care, at bedside. plan to discharge patient home - will arrange with case management for post op care as needed - follow up in OPD in 7-10 days Post-op pain 10/27/2012 12/26/2015 Overview: currently well controlled with [employer]. will start PO pain meds today 10/27. tolerating percocet, pain relatively well controlled. Hodgkin's disease with nodular sclerosis 013 12/26/2015 Overview: Oncology history (per Dr. 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 Hodgkin's disease, unspecified 02/05/2012 0 05/11/2014 Vaginal bleeding 12/26/2015 Overview: --likely from thrombocytopenia. No menses in prior 8 months. Scant amount reported on 03/29 and 03/30, now resolved --monitor bleeding by counting pads --should f/u with her [employer] provider after BMT Premature menopause 12/26/2015 Postmenopausal atrophic vaginitis 12/26/2015 Dyspareunia 12/26/2015 documented as of this encounter (statuses as of 06/15/2022) [facility] History of Past illness Narrative* Problem Noted Date Resolved Date Menorrhagia with regular cycle 03/15/2017 1 03/03/2017 Overview: Added automatically from request for surgery [id number] History of pulmonary embolism 04/25/2016 Neoplastic (malignant) [...] FOLLOW-UP 10/27/20122015 Overview: 32 yo female from [place], [place]. Family involved with care, at bedside. plan to discharge patient home - will arrange with case management for post op care as needed - follow up in OPD in 7-10 days Post-op pain 10/27/2012 12/26/2015 Overview: currently well controlled with [employer]. will start PO pain meds today 10/27. tolerating percocet, pain relatively well controlled. Hodgkin's disease with nodular sclerosis 013 12/26/2015 Overview: Oncology history (per Dr. 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 Hodgkin's disease, unspecified 02/05/2012 0 05/11/2014 Vaginal bleeding 12/26/2015 Overview: --likely from thrombocytopenia. No menses in prior 8 months. Scant amount reported on 03/29 and 03/30, now resolved --monitor bleeding by counting pads --should f/u with her [employer] provider after BMT Premature menopause 12/26/2015 Postmenopausal atrophic vaginitis 12/26/2015 Dyspareunia 12/26/2015 documented as of this encounter (statuses as of 07/17/2022) [facility] History of Past illness Narrative* Problem Noted Date Resolved Date Menorrhagia with regular cycle 03/15/2017 1 03/03/2017 Overview: Added automatically from request for surgery [id number] History of pulmonary embolism 04/25/2016 Neoplastic (malignant) [...] FOLLOW-UP 10/27/20122015 Overview: 32 yo female from [place]. Family involved with care, at bedside. plan to discharge patient home - will arrange with case management for post op care as needed - follow up in OPD in 7-10 days Post-op pain 10/27/2012 12/26/2015 Overview: currently well controlled with [employer]. will start PO pain meds today 10/27. tolerating percocet, pain relatively well controlled. Hodgkin's disease with nodular sclerosis 013 12/26/2015 Overview: Oncology history (per Dr. 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 Hodgkin's disease, unspecified 02/05/2012 0 05/11/2014 Vaginal bleeding 12/26/2015 Overview: --likely from thrombocytopenia. No menses in prior 8 months. Scant amount reported on 03/29 and 03/30, now resolved --monitor bleeding by counting pads --should f/u with her [employer] provider after BMT Premature menopause 12/26/2015 Postmenopausal atrophic vaginitis 12/26/2015 Dyspareunia 12/26/2015 documented as of this encounter (statuses as of 07/17/2022) [facility] History of Past illness Narrative* Problem Noted Date Resolved Date Menorrhagia with regular cycle 03/15/2017 1 03/03/2017 Overview: Added automatically from request for surgery [id number] History of pulmonary embolism 04/25/2016 Neoplastic (malignant) [...] FOLLOW-UP 10/27/20122015 Overview: 32 yo female from [place]. Family involved with care, at bedside. plan to discharge patient home - will arrange with case management for post op care as needed - follow up in OPD in 7-10 days Post-op pain 10/27/2012 12/26/2015 Overview: currently well controlled with [employer]. will start PO pain meds today 10/27. tolerating percocet, pain relatively well controlled. Hodgkin's disease with nodular sclerosis 013 12/26/2015 Overview: Oncology history (per Dr. 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 Hodgkin's disease, unspecified 02/05/2012 0 05/11/2014 Vaginal bleeding 12/26/2015 Overview: --likely from thrombocytopenia. No menses in prior 8 months. Scant amount reported on 03/29 and 03/30, now resolved --monitor bleeding by counting pads --should f/u with her [employer] provider after BMT Premature menopause 12/26/2015 Postmenopausal atrophic vaginitis 12/26/2015 Dyspareunia 12/26/2015 documented as of this encounter (statuses as of 07/18/2022) [facility] History of Past illness Narrative* Problem Noted Date Resolved Date Menorrhagia with regular cycle 03/15/2017 1 03/03/2017 Overview: Added automatically from request for surgery [id number] History of pulmonary embolism 04/25/2016 Neoplastic (malignant) [...] FOLLOW-UP 10/27/20122015 Overview: 32 yo female from [place]. Family involved with care, at bedside. plan to discharge patient home - will arrange with case management for post op care as needed - follow up in OPD in 7-10 days Post-op pain 10/27/2012 12/26/2015 Overview: currently well controlled with [employer]. will start PO pain meds today 10/27. tolerating percocet, pain relatively well controlled. Hodgkin's disease with nodular sclerosis 013 12/26/2015 Overview: Oncology history (per Dr. 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 Hodgkin's disease, unspecified 02/05/2012 0 05/11/2014 Vaginal bleeding 12/26/2015 Overview: --likely from thrombocytopenia. No menses in prior 8 months. Scant amount reported on 03/29 and 03/30, now resolved --monitor bleeding by counting pads --should f/u with her [employer] provider after BMT Premature menopause 12/26/2015 Postmenopausal atrophic vaginitis 12/26/2015 Dyspareunia 12/26/2015 documented as of this encounter (statuses as of 07/19/2022) [facility] History of Past illness Narrative* Problem Noted Date Resolved Date Menorrhagia with regular cycle 03/15/2017 1 03/03/2017 Overview: Added automatically from request for surgery [id number] History of pulmonary embolism 04/25/2016 Neoplastic (malignant) [...] FOLLOW-UP 10/27/20122015 Overview: 32 yo female from [place]. Family involved with care, at bedside. plan to discharge patient home - will arrange with case management for post op care as needed - follow up in OPD in 7-10 days Post-op pain 10/27/2012 12/26/2015 Overview: currently well controlled with [employer]. will start PO pain meds today 10/27. tolerating percocet, pain relatively well controlled. Hodgkin's disease with nodular sclerosis 013 12/26/2015 Overview: Oncology history (per Dr. 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 Hodgkin's disease, unspecified 02/05/2012 0 05/11/2014 Vaginal bleeding 12/26/2015 Overview: --likely from thrombocytopenia. No menses in prior 8 months. Scant amount reported on 03/29 and 03/30, now resolved --monitor bleeding by counting pads --should f/u with her [employer] provider after BMT Premature menopause 12/26/2015 Postmenopausal atrophic vaginitis 12/26/2015 Dyspareunia 12/26/2015 documented as of this encounter (statuses as of 07/19/2022) [facility] of Past illness Narrative* Problem Noted Date Resolved Date Menorrhagia with regular cycle 03/15/2017 1 03/03/2017 Overview: Added automatically from request for surgery [id number] History of pulmonary embolism 04/25/2016 Neoplastic (malignant) [...] FOLLOW-UP 10/27/20122015 Overview: 32 yo female from [place]. Family involved with care, at bedside. plan to discharge patient home - will arrange with case management for post op care as needed - follow up in OPD in 7-10 days Post-op pain 10/27/2012 12/26/2015 Overview: currently well controlled with [employer]. will start PO pain meds today 10/27. tolerating percocet, pain relatively well controlled. Hodgkin's disease with nodular sclerosis 013 12/26/2015 Overview: Oncology history (per Dr. 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 Hodgkin's disease, unspecified 02/05/2012 0 05/11/2014 Vaginal bleeding 12/26/2015 Overview: --likely from thrombocytopenia. No menses in prior 8 months. Scant amount reported on 03/29 and 03/30, now resolved --monitor bleeding by counting pads --should f/u with her [employer] provider after BMT Premature menopause 12/26/2015 Postmenopausal atrophic vaginitis 12/26/2015 Dyspareunia 12/26/2015 documented as of this encounter (statuses as of 07/25/2022) [facility] of Past illness Narrative* Problem Noted Date Resolved Date Menorrhagia with regular cycle 03/15/2017 1 03/03/2017 Overview: Added automatically from request for surgery [id number] History of pulmonary embolism 04/25/2016 Neoplastic (malignant) [...] FOLLOW-UP 10/27/20122015 Overview: 32 yo female from [place]. Family involved with care, at bedside. plan to discharge patient home - will arrange with case management for post op care as needed - follow up in OPD in 7-10 days Post-op pain 10/27/2012 12/26/2015 Overview: currently well controlled with [employer]. will start PO pain meds today 10/27. tolerating percocet, pain relatively well controlled. Hodgkin's disease with nodular sclerosis 013 12/26/2015 Overview: Oncology history (per Dr. 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 Hodgkin's disease, unspecified 02/05/2012 0 05/11/2014 Vaginal bleeding 12/26/2015 Overview: --likely from thrombocytopenia. No menses in prior 8 months. Scant amount reported on 03/29 and 03/30, now resolved --monitor bleeding by counting pads --should f/u with her [employer] provider after BMT Premature menopause 12/26/2015 Postmenopausal atrophic vaginitis 12/26/2015 Dyspareunia 12/26/2015 documented as of this encounter (statuses as of 07/25/2022) [facility] of Past illness Narrative* Problem Noted Date Resolved Date Menorrhagia with regular cycle 03/15/2017 1 03/03/2017 Overview: Added automatically from request for surgery [id number] History of pulmonary embolism 04/25/2016 Neoplastic (malignant) [...] FOLLOW-UP 10/27/20122015 Overview: 32 yo female from [place]. Family involved with care, at bedside. plan to discharge patient home - will arrange with case management for post op care as needed - follow up in OPD in 7-10 days Post-op pain 10/27/2012 12/26/2015 Overview: currently well controlled with [employer]. will start PO pain meds today 10/27. tolerating percocet, pain relatively well controlled. Hodgkin's disease with nodular sclerosis 013 12/26/2015 Overview: Oncology history (per Dr. 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 Hodgkin's disease, unspecified 02/05/2012 0 05/11/2014 Vaginal bleeding 12/26/2015 Overview: --likely from thrombocytopenia. No menses in prior 8 months. Scant amount reported on 03/29 and 03/30, now resolved --monitor bleeding by counting pads --should f/u with her [employer] provider after BMT Premature menopause 12/26/2015 Postmenopausal atrophic vaginitis 12/26/2015 Dyspareunia 12/26/2015 documented as of this encounter (statuses as of 07/25/2022) [facility] of Past illness Narrative* Problem Noted Date Resolved Date Menorrhagia with regular cycle 03/15/2017 1 03/03/2017 Overview: Added automatically from request for surgery [id number] History of pulmonary embolism 04/25/2016 Neoplastic (malignant) [...] FOLLOW-UP 10/27/20122015 Overview: 32 yo female from [place]. Family involved with care, at bedside. plan to discharge patient home - will arrange with case management for post op care as needed - follow up in OPD in 7-10 days Post-op pain 10/27/2012 12/26/2015 Overview: currently well controlled with [employer]. will start PO pain meds today 10/27. tolerating percocet, pain relatively well controlled. Hodgkin's disease with nodular sclerosis 013 12/26/2015 Overview: Oncology history (per Dr. 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 Hodgkin's disease, unspecified 02/05/2012 0 05/11/2014 Vaginal bleeding 12/26/2015 Overview: --likely from thrombocytopenia. No menses in prior 8 months. Scant amount reported on 03/29 and 03/30, now resolved --monitor bleeding by counting pads --should f/u with her [employer] provider after BMT Premature menopause 12/26/2015 Postmenopausal atrophic vaginitis 12/26/2015 Dyspareunia 12/26/2015 documented as of this encounter (statuses as of 08/02/2022) [facility]01-[facility]-2018 History of Past illness Narrative* Problem Noted Date Resolved Date Menorrhagia with regular cycle 03/15/2017 1 03/03/2017 Overview: Added automatically from request for surgery [id number] History of pulmonary embolism 04/25/2016 Neoplastic (malignant) [...] FOLLOW-UP 10/27/20122015 Overview: 32 yo female from [place], [place]. Family involved with care, at bedside. plan to discharge patient home - will arrange with case management for post op care as needed - follow up in OPD in 7-10 days Post-op pain 10/27/2012 12/26/2015 Overview: currently well controlled with [employer]. will start PO pain meds today 10/27. tolerating percocet, pain relatively well controlled. Hodgkin's disease with nodular sclerosis 013 12/26/2015 Overview: Oncology history (per Dr. 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 Hodgkin's disease, unspecified 02/05/2012 0 05/11/2014 Vaginal bleeding 12/26/2015 Overview: --likely from thrombocytopenia. No menses in prior 8 months. Scant amount reported on 03/29 and 03/30, now resolved --monitor bleeding by counting pads --should f/u with her [employer] provider after BMT Premature menopause 12/26/2015 Postmenopausal atrophic vaginitis 12/26/2015 Dyspareunia 12/26/2015 documented as of this encounter (statuses as of 08/05/2022) [facility] History of Past illness Narrative* Problem Noted Date Resolved Date Menorrhagia with regular cycle 03/15/2017 1 03/03/2017 Overview: Added automatically from request for surgery [id number] History of pulmonary embolism 04/25/2016 Neoplastic (malignant) [...] FOLLOW-UP 10/27/20122015 Overview: 32 yo female from [place], [place]. Family involved with care, at bedside. plan to discharge patient home - will arrange with case management for post op care as needed - follow up in OPD in 7-10 days Post-op pain 10/27/2012 12/26/2015 Overview: currently well controlled with [employer]. will start PO pain meds today 10/27. tolerating percocet, pain relatively well controlled. Hodgkin's disease with nodular sclerosis 013 12/26/2015 Overview: Oncology history (per Dr. 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 Hodgkin's disease, unspecified 02/05/2012 0 05/11/2014 Vaginal bleeding 12/26/2015 Overview: --likely from thrombocytopenia. No menses in prior 8 months. Scant amount reported on 03/29 and 03/30, now resolved --monitor bleeding by counting pads --should f/u with her [employer] provider after BMT Premature menopause 12/26/2015 Postmenopausal atrophic vaginitis 12/26/2015 Dyspareunia 12/26/2015 documented as of this encounter (statuses as of 08/10/2022) [facility] History of Past illness Narrative* Problem Noted Date Resolved Date Menorrhagia with regular cycle 03/15/2017 1 03/03/2017 Overview: Added automatically from request for surgery [id number] History of pulmonary embolism 04/25/2016 Neoplastic (malignant) [...] FOLLOW-UP 10/27/20122015 Overview: 32 yo female from [place]. Family involved with care, at bedside. plan to discharge patient home - will arrange with case management for post op care as needed - follow up in OPD in 7-10 days Post-op pain 10/27/2012 12/26/2015 Overview: currently well controlled with [employer]. will start PO pain meds today 10/27. tolerating percocet, pain relatively well controlled. Hodgkin's disease with nodular sclerosis 013 12/26/2015 Overview: Oncology history (per Dr. 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 Hodgkin's disease, unspecified 02/05/2012 0 05/11/2014 Vaginal bleeding 12/26/2015 Overview: --likely from thrombocytopenia. No menses in prior 8 months. Scant amount reported on 03/29 and 03/30, now resolved --monitor bleeding by counting pads --should f/u with her [employer] provider after BMT Premature menopause 12/26/2015 Postmenopausal atrophic vaginitis 12/26/2015 Dyspareunia 12/26/2015 documented as of this encounter (statuses as of 08/10/2022) [facility] History of Past illness Narrative* Problem Noted Date Resolved Date Menorrhagia with regular cycle 03/15/2017 1 03/03/2017 Overview: Added automatically from request for surgery [id number] History of pulmonary embolism 04/25/2016 Neoplastic (malignant) [...] FOLLOW-UP 10/27/20122015 Overview: 32 yo female from [place]. Family involved with care, at bedside. plan to discharge patient home - will arrange with case management for post op care as needed - follow up in OPD in 7-10 days Post-op pain 10/27/2012 12/26/2015 Overview: currently well controlled with [employer]. will start PO pain meds today 10/27. tolerating percocet, pain relatively well controlled. Hodgkin's disease with nodular sclerosis 013 12/26/2015 Overview: Oncology history (per Dr. 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 Hodgkin's disease, unspecified 02/05/2012 0 05/11/2014 Vaginal bleeding 12/26/2015 Overview: --likely from thrombocytopenia. No menses in prior 8 months. Scant amount reported on 03/29 and 03/30, now resolved --monitor bleeding by counting pads --should f/u with her [employer] provider after BMT Premature menopause 12/26/2015 Postmenopausal atrophic vaginitis 12/26/2015 Dyspareunia 12/26/2015 documented as of this encounter (statuses as of 08/17/2022) [facility] History of Past illness Narrative* Problem Noted Date Resolved Date Menorrhagia with regular cycle 03/15/2017 1 03/03/2017 Overview: Added automatically from request for surgery [id number] History of pulmonary embolism 04/25/2016 Neoplastic (malignant) [...] FOLLOW-UP 10/27/20122015 Overview: 32 yo female from [place]. Family involved with care, at bedside. plan to discharge patient home - will arrange with case management for post op care as needed - follow up in OPD in 7-10 days Post-op pain 10/27/2012 12/26/2015 Overview: currently well controlled with [employer]. will start PO pain meds today 10/27. tolerating percocet, pain relatively well controlled. Hodgkin's disease with nodular sclerosis 013 12/26/2015 Overview: Oncology history (per Dr. 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 Hodgkin's disease, unspecified 02/05/2012 0 05/11/2014 Vaginal bleeding 12/26/2015 Overview: --likely from thrombocytopenia. No menses in prior 8 months. Scant amount reported on 03/29 and 03/30, now resolved --monitor bleeding by counting pads --should f/u with her [employer] provider after BMT Premature menopause 12/26/2015 Postmenopausal atrophic vaginitis 12/26/2015 Dyspareunia 12/26/2015 documented as of this encounter (statuses as of 08/23/2022) [facility] History of Past illness Narrative* Problem Noted Date Diagnosed Date Resolved Date Menorrhagia with regular cycle 03/15/2017 01/01/2018 Overview: Added automatically from request for surgery [id number] History of pulmonary embolism 04/25/2016 01/01/2018 Neoplastic [...] FOLLOW-UP 10/27/2012 Overview: 32 yo female from [place]. Family involved with care, at bedside. plan to discharge patient home - will arrange with case management for post op care as needed - follow up in OPD in 7-10 days Post-op pain 10/27/2012 12/26/2015 Overview: currently well controlled with [employer]. will start PO pain meds today 10/27. tolerating percocet, pain relatively well controlled. Hodgkin's disease with nodular sclerosis 05/27/2012 12/26/2015 Overview: Oncology history (per Dr. 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 Hodgkin's disease, unspecified 02/05/2012 05/11/2014 Vaginal bleeding 12/26/2015 Overview: --likely from thrombocytopenia. No menses in prior 8 months. Scant amount reported on 03/29 and 03/30, now resolved --monitor bleeding by counting pads --should f/u with her [employer] provider after BMT Premature menopause 12/26/19 16 Postmenopausal atrophic vaginitis 12/26/2015 Dyspareunia 12/26/2015 documented as of this encounter (statuses as of 08/27/2022) [facility] History of Past illness Narrative* Problem Noted Date Diagnosed Date Resolved Date Menorrhagia with regular cycle 03/15/2017 01/01/2018 Overview: Added automatically from request for surgery [id number] History of pulmonary embolism 04/25/2016 01/01/2018 Neoplastic [...] FOLLOW-UP 10/27/2012 Overview: 32 yo female from [place]. Family involved with care, at bedside. plan to discharge patient home - will arrange with case management for post op care as needed - follow up in OPD in 7-10 days Post-op pain 10/27/2012 12/26/2015 Overview: currently well controlled with [employer]. will start PO pain meds today 10/27. tolerating percocet, pain relatively well controlled. Hodgkin's disease with nodular sclerosis 05/27/2012 12/26/2015 Overview: Oncology history (per Dr. 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 Hodgkin's disease, unspecified 02/05/2012 05/11/2014 Vaginal bleeding 12/26/2015 Overview: --likely from thrombocytopenia. No menses in prior 8 months. Scant amount reported on 03/29 and 03/30, now resolved --monitor bleeding by counting pads --should f/u with her [employer] provider after BMT Premature menopause 12/26/19 16 Postmenopausal atrophic vaginitis 12/26/2015 Dyspareunia 12/26/2015 documented as of this encounter (statuses as of 08/30/2022) [facility] History of Past illness Narrative* Problem Noted Date Diagnosed Date Resolved Date Menorrhagia with regular cycle 03/15/2017 01/01/2018 Overview: Added automatically from request for surgery [id number] History of pulmonary embolism 04/25/2016 01/01/2018 Neoplastic [...] FOLLOW-UP 10/27/2012 Overview: 32 yo female from [place]. Family involved with care, at bedside. plan to discharge patient home - will arrange with case management for post op care as needed - follow up in OPD in 7-10 days Post-op pain 10/27/2012 12/26/2015 Overview: currently well controlled with [employer]. will start PO pain meds today 10/27. tolerating percocet, pain relatively well controlled. Hodgkin's disease with nodular sclerosis 05/27/2012 12/26/2015 Overview: Oncology history (per Dr. 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 Hodgkin's disease, unspecified 02/05/2012 05/11/2014 Vaginal bleeding 12/26/2015 Overview: --likely from thrombocytopenia. No menses in prior 8 months. Scant amount reported on 03/29 and 03/30, now resolved --monitor bleeding by counting pads --should f/u with her [employer] provider after BMT Premature menopause 12/26/19 16 Postmenopausal atrophic vaginitis 12/26/2015 Dyspareunia 12/26/2015 documented as of this encounter (statuses as of 08/31/2022) [facility] History of Past illness Narrative* Problem Noted Date Diagnosed Date Resolved Date Menorrhagia with regular cycle 03/15/2017 01/01/2018 Overview: Added automatically from request for surgery [id number] History of pulmonary embolism 04/25/2016 01/01/2018 Neoplastic [...] FOLLOW-UP 10/27/2012 Overview: 32 yo female from [place]. Family involved with care, at bedside. plan to discharge patient home - will arrange with case management for post op care as needed - follow up in OPD in 7-10 days Post-op pain 10/27/2012 12/26/2015 Overview: currently well controlled with [employer]. will start PO pain meds today 10/27. tolerating percocet, pain relatively well controlled. Hodgkin's disease with nodular sclerosis 05/27/2012 12/26/2015 Overview: Oncology history (per Dr. 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 Hodgkin's disease, unspecified 02/05/2012 05/11/2014 Vaginal bleeding 12/26/2015 Overview: --likely from thrombocytopenia. No menses in prior 8 months. Scant amount reported on 03/29 and 03/30, now resolved --monitor bleeding by counting pads --should f/u with her [employer] provider after BMT Premature menopause 12/26/19 16 Postmenopausal atrophic vaginitis 12/26/2015 Dyspareunia 12/26/2015 documented as of this encounter (statuses as of 09/01/2022) [facility] History of Past illness Narrative* Problem Noted Date Diagnosed Date Resolved Date Menorrhagia with regular cycle 03/15/2017 01/01/2018 Overview: Added automatically from request for surgery [id number] History of pulmonary embolism 04/25/2016 01/01/2018 Neoplastic [...] FOLLOW-UP 10/27/2012 Overview: 32 yo female from [place]. Family involved with care, at bedside. plan to discharge patient home - will arrange with case management for post op care as needed - follow up in OPD in 7-10 days Post-op pain 10/27/2012 12/26/2015 Overview: currently well controlled with [employer]. will start PO pain meds today 10/27. tolerating percocet, pain relatively well controlled. Hodgkin's disease with nodular sclerosis 05/27/2012 12/26/2015 Overview: Oncology history (per Dr. 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 Hodgkin's disease, unspecified 02/05/2012 05/11/2014 Vaginal bleeding 12/26/2015 Overview: --likely from thrombocytopenia. No menses in prior 8 months. Scant amount reported on 03/29 and 03/30, now resolved --monitor bleeding by counting pads --should f/u with her [employer] provider after BMT Premature menopause 12/26/19 16 Postmenopausal atrophic vaginitis 12/26/2015 Dyspareunia 12/26/2015 documented as of this encounter (statuses as of 09/06/2022) [facility] History of Past illness Narrative* Problem Noted Date Diagnosed Date Resolved Date Menorrhagia with regular cycle 03/15/2017 01/01/2018 Overview: Added automatically from request for surgery [id number] History of pulmonary embolism 04/25/2016 01/01/2018 Neoplastic [...] FOLLOW-UP 10/27/2012 Overview: 32 yo female from [place]. Family involved with care, at bedside. plan to discharge patient home - will arrange with case management for post op care as needed - follow up in OPD in 7-10 days Post-op pain 10/27/2012 12/26/2015 Overview: currently well controlled with [employer]. will start PO pain meds today 10/27. tolerating percocet, pain relatively well controlled. Hodgkin's disease with nodular sclerosis 05/27/2012 12/26/2015 Overview: Oncology history (per Dr. 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 Hodgkin's disease, unspecified 02/05/2012 05/11/2014 Vaginal bleeding 12/26/2015 Overview: --likely from thrombocytopenia. No menses in prior 8 months. Scant amount reported on 03/29 and 03/30, now resolved --monitor bleeding by counting pads --should f/u with her [employer] provider after BMT Premature menopause 12/26/19 16 Postmenopausal atrophic vaginitis 12/26/2015 Dyspareunia 12/26/2015 documented as of this encounter (statuses as of 09/13/2022) [facility] of Past illness Narrative* Problem Noted Date Diagnosed Date Resolved Date Menorrhagia with regular cycle 03/15/2017 01/01/2018 Overview: Added automatically from request for surgery [id number] History of pulmonary embolism 04/25/2016 01/01/2018 Neoplastic [...] FOLLOW-UP 10/27/2012 Overview: 32 yo female from [place]. Family involved with care, at bedside. plan to discharge patient home - will arrange with case management for post op care as needed - follow up in OPD in 7-10 days Post-op pain 10/27/2012 12/26/2015 Overview: currently well controlled with [employer]. will start PO pain meds today 10/27. tolerating percocet, pain relatively well controlled. Hodgkin's disease with nodular sclerosis 05/27/2012 12/26/2015 Overview: Oncology history (per Dr. 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 Hodgkin's disease, unspecified 02/05/2012 05/11/2014 Vaginal bleeding 12/26/2015 Overview: --likely from thrombocytopenia. No menses in prior 8 months. Scant amount reported on 03/29 and 03/30, now resolved --monitor bleeding by counting pads --should f/u with her [employer] provider after BMT Premature menopause 12/26/19 16 Postmenopausal atrophic vaginitis 12/26/2015 Dyspareunia 12/26/2015 documented as of this encounter (statuses as of 09/28/2022) [facility] of Past illness Narrative* Problem Noted Date Diagnosed Date Resolved Date Menorrhagia with regular cycle 03/15/2017 01/01/2018 Overview: Added automatically from request for surgery [id number] History of pulmonary embolism 04/25/2016 01/01/2018 Neoplastic [...] FOLLOW-UP 10/27/2012 Overview: 32 yo female from [place]. Family involved with care, at bedside. plan to discharge patient home - will arrange with case management for post op care as needed - follow up in OPD in 7-10 days Post-op pain 10/27/2012 12/26/2015 Overview: currently well controlled with [employer]. will start PO pain meds today 10/27. tolerating percocet, pain relatively well controlled. Hodgkin's disease with nodular sclerosis 05/27/2012 12/26/2015 Overview: Oncology history (per Dr. 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 Hodgkin's disease, unspecified 02/05/2012 05/11/2014 Vaginal bleeding 12/26/2015 Overview: --likely from thrombocytopenia. No menses in prior 8 months. Scant amount reported on 03/29 and 03/30, now resolved --monitor bleeding by counting pads --should f/u with her [employer] provider after BMT Premature menopause 12/26/19 16 Postmenopausal atrophic vaginitis 12/26/2015 Dyspareunia 12/26/2015 documented as of this encounter (statuses as of 10/08/2022) [facility] of Past illness Narrative* Problem Noted Date Diagnosed Date Resolved Date Menorrhagia with regular cycle 03/15/2017 01/01/2018 Overview: Added automatically from request for surgery [id number] History of pulmonary embolism 04/25/2016 01/01/2018 Neoplastic [...] will need to follow up with Dr. Ugner after discharge Tachycardia 03/16/2013 12/26/2015 Overview: --patient taking atenolol 100mg BID at home, now BP running lower, decreased atenolol dose to 50mg BID with hypotension. --increase to 75mg BID, d/t tachycardia(HRs >110 while afebrile), HR now controlled, continue --monitor closely Electrolyte and fluid disord ers not elsewhere classified 02/16/2013 12/26/2015 DISPOSITION AND FOLLOW-UP 10/27/2012 Overview: 32 yo female from [place]. Family involved with care, at bedside. plan to discharge patient home - will arrange with case management for post op care as needed - follow up in OPD in 7-10 days Post-op pain 10/27/2012 12/26/2015 Overview: currently well controlled with [employer]. will start PO pain meds today 10/27. tolerating percocet, pain relatively well controlled. Hodgkin's disease with nodular sclerosis 05/27/2012 12/26/2015 Overview: Oncology history (per Dr. 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 Hodgkin's disease, unspecified 02/05/2012 05/11/2014 Vaginal bleeding 12/26/2015 Overview: --likely from thrombocytopenia. No menses in prior 8 months. Scant amount reported on 03/29 and 03/30, now resolved --monitor bleeding by counting pads --should f/u with her [employer] provider after BMT Premature menopause 12/26/19 16 Postmenopausal atrophic vaginitis 12/26/2015 Dyspareunia 12/26/2015 documented as of this encounter (statuses as of 10/09/2022) [place] [id number] History of Past illness Narrative* Problem Noted Date Diagnosed Date Resolved Date Menorrhagia with regular cycle 03/15/2017 01/01/2018 Overview: Added automatically from request for surgery [id number] History of pulmonary embolism 04/25/2016 01/01/2018 Neoplastic [...] FOLLOW-UP 10/27/2012 Overview: 32 yo female from [place]. Family involved with care, at bedside. plan to discharge patient home - will arrange with case management for post op care as needed - follow up in OPD in 7-10 days Post-op pain 10/27/2012 12/26/2015 Overview: currently well controlled with [employer]. will start PO pain meds today 10/27. tolerating percocet, pain relatively well controlled. Hodgkin's disease with nodular sclerosis 05/27/2012 12/26/2015 Overview: Oncology history (per Dr. 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 Hodgkin's disease, unspecified 02/05/2012 05/11/2014 Vaginal bleeding 12/26/2015 Overview: --likely from thrombocytopenia. No menses in prior 8 months. Scant amount reported on 03/29 and 03/30, now resolved --monitor bleeding by counting pads --should f/u with her [employer] provider after BMT Premature menopause 12/26/19 16 Postmenopausal atrophic vaginitis 12/26/2015 Dyspareunia 12/26/2015 documented as of this encounter (statuses as of 10/09/2022) [facility]01-[facility] History of Past illness Narrative* Problem Noted Date Diagnosed Date Resolved Date Menorrhagia with regular cycle 03/15/2017 01/01/2018 Overview: Added automatically from request for surgery [id number] History of pulmonary embolism 04/25/2016 01/01/2018 Neoplastic [...] FOLLOW-UP 10/27/2012 Overview: 32 yo female from [place], [place]. Family involved with care, at bedside. plan to discharge patient home - will arrange with case management for post op care as needed - follow up in OPD in 7-10 days Post-op pain 10/27/2012 12/26/2015 Overview: currently well controlled with [employer]. will start PO pain meds today 10/27. tolerating percocet, pain relatively well controlled. Hodgkin's disease with nodular sclerosis 05/27/2012 12/26/2015 Overview: Oncology history (per Dr. 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 Hodgkin's disease, unspecified 02/05/2012 05/11/2014 Vaginal bleeding 12/26/2015 Overview: --likely from thrombocytopenia. No menses in prior 8 months. Scant amount reported on 03/29 and 03/30, now resolved --monitor bleeding by counting pads --should f/u with her [employer] provider after BMT Premature menopause 12/26/19 16 Postmenopausal atrophic vaginitis 12/26/2015 Dyspareunia 12/26/2015 documented as of this encounter (statuses as of 10/10/2022) [facility] History of Past illness Narrative* Problem Noted Date Diagnosed Date Resolved Date Menorrhagia with regular cycle 03/15/2017 01/01/2018 Overview: Added automatically from request for surgery [id number] History of pulmonary embolism 04/25/2016 01/01/2018 Neoplastic [...] FOLLOW-UP 10/27/2012 Overview: 32 yo female from [place], [place]. Family involved with care, at bedside. plan to discharge patient home - will arrange with case management for post op care as needed - follow up in OPD in 7-10 days Post-op pain 10/27/2012 12/26/2015 Overview: currently well controlled with [employer]. will start PO pain meds today 10/27. tolerating percocet, pain relatively well controlled. Hodgkin's disease with nodular sclerosis 05/27/2012 12/26/2015 Overview: Oncology history (per Dr. 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 Hodgkin's disease, unspecified 02/05/2012 05/11/2014 Vaginal bleeding 12/26/2015 Overview: --likely from thrombocytopenia. No menses in prior 8 months. Scant amount reported on 03/29 and 03/30, now resolved --monitor bleeding by counting pads --should f/u with her [employer] provider after BMT Premature menopause 12/26/19 16 Postmenopausal atrophic vaginitis 12/26/2015 Dyspareunia 12/26/2015 documented as of this encounter (statuses as of 10/10/2022) [facility] History of Past illness Narrative* Problem Noted Date Diagnosed Date Resolved Date Menorrhagia with regular cycle 03/15/2017 01/01/2018 Overview: Added automatically from request for surgery [id number] History of pulmonary embolism 04/25/2016 01/01/2018 Neoplastic [...] FOLLOW-UP 10/27/2012 Overview: 32 yo female from [place], [place]. Family involved with care, at bedside. plan to discharge patient home - will arrange with case management for post op care as needed - follow up in OPD in 7-10 days Post-op pain 10/27/2012 12/26/2015 Overview: currently well controlled with [employer]. will start PO pain meds today 10/27. tolerating percocet, pain relatively well controlled. Hodgkin's disease with nodular sclerosis 05/27/2012 12/26/2015 Overview: Oncology history (per Dr. 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 Hodgkin's disease, unspecified 02/05/2012 05/11/2014 Vaginal bleeding 12/26/2015 Overview: --likely from thrombocytopenia. No menses in prior 8 months. Scant amount reported on 03/29 and 03/30, now resolved --monitor bleeding by counting pads --should f/u with her [employer] provider after BMT Premature menopause 12/26/19 16 Postmenopausal atrophic vaginitis 12/26/2015 Dyspareunia 12/26/2015 documented as of this encounter (statuses as of 10/18/2022) [facility] History of Past illness Narrative* Problem Noted Date Diagnosed Date Resolved Date Menorrhagia with regular cycle 03/15/2017 01/01/2018 Overview: Added automatically from request for surgery [id number] History of pulmonary embolism 04/25/2016 01/01/2018 Neoplastic [...] FOLLOW-UP 10/27/2012 Overview: 32 yo female from [place], [place]. Family involved with care, at bedside. plan to discharge patient home - will arrange with case management for post op care as needed - follow up in OPD in 7-10 days Post-op pain 10/27/2012 12/26/2015 Overview: currently well controlled with [employer]. will start PO pain meds today 10/27. tolerating percocet, pain relatively well controlled. Hodgkin's disease with nodular sclerosis 05/27/2012 12/26/2015 Overview: Oncology history (per Dr. 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 Hodgkin's disease, unspecified 02/05/2012 05/11/2014 Vaginal bleeding 12/26/2015 Overview: --likely from thrombocytopenia. No menses in prior 8 months. Scant amount reported on 03/29 and 03/30, now resolved --monitor bleeding by counting pads --should f/u with her [employer] provider after BMT Premature menopause 12/26/19 16 Postmenopausal atrophic vaginitis 12/26/2015 Dyspareunia 12/26/2015 documented as of this encounter (statuses as of 10/18/2022) [facility] History of Past illness Narrative* Problem Noted Date Diagnosed Date Resolved Date Menorrhagia with regular cycle 03/15/2017 01/01/2018 Overview: Added automatically from request for surgery [id number] History of pulmonary embolism 04/25/2016 01/01/2018 Neoplastic [...] FOLLOW-UP 10/27/2012 Overview: 32 yo female from [place]. Family involved with care, at bedside. plan to discharge patient home - will arrange with case management for post op care as needed - follow up in OPD in 7-10 days Post-op pain 10/27/2012 12/26/2015 Overview: currently well controlled with [employer]. will start PO pain meds today 10/27. tolerating percocet, pain relatively well controlled. Hodgkin's disease with nodular sclerosis 05/27/2012 12/26/2015 Overview: Oncology history (per Dr. 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 Hodgkin's disease, unspecified 02/05/2012 05/11/2014 Vaginal bleeding 12/26/2015 Overview: --likely from thrombocytopenia. No menses in prior 8 months. Scant amount reported on 03/29 and 03/30, now resolved --monitor bleeding by counting pads --should f/u with her [employer] provider after BMT Premature menopause 12/26/19 16 Postmenopausal atrophic vaginitis 12/26/2015 Dyspareunia 12/26/2015 documented as of this encounter (statuses as of 10/19/2022) [facility] History of Past illness Narrative* Problem Noted Date Diagnosed Date Resolved Date Menorrhagia with regular cycle 03/15/2017 01/01/2018 Overview: Added automatically from request for surgery [id number] History of pulmonary embolism 04/25/2016 01/01/2018 Neoplastic [...] FOLLOW-UP 10/27/2012 Overview: 32 yo female from [place]. Family involved with care, at bedside. plan to discharge patient home - will arrange with case management for post op care as needed - follow up in OPD in 7-10 days Post-op pain 10/27/2012 12/26/2015 Overview: currently well controlled with [employer]. will start PO pain meds today 10/27. tolerating percocet, pain relatively well controlled. Hodgkin's disease with nodular sclerosis 05/27/2012 12/26/2015 Overview: Oncology history (per Dr. 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 Hodgkin's disease, unspecified 02/05/2012 05/11/2014 Vaginal bleeding 12/26/2015 Overview: --likely from thrombocytopenia. No menses in prior 8 months. Scant amount reported on 03/29 and 03/30, now resolved --monitor bleeding by counting pads --should f/u with her [employer] provider after BMT Premature menopause 12/26/19 16 Postmenopausal atrophic vaginitis 12/26/2015 Dyspareunia 12/26/2015 documented as of this encounter (statuses as of 10/24/2022) [facility] History of Past illness Narrative* Problem Noted Date Diagnosed Date Resolved Date Menorrhagia with regular cycle 03/15/2017 01/01/2018 Overview: Added automatically from request for surgery [id number] History of pulmonary embolism 04/25/2016 01/01/2018 Neoplastic [...] FOLLOW-UP 10/27/2012 Overview: 32 yo female from [place]. Family involved with care, at bedside. plan to discharge patient home - will arrange with case management for post op care as needed - follow up in OPD in 7-10 days Post-op pain 10/27/2012 12/26/2015 Overview: currently well controlled with [employer]. will start PO pain meds today 10/27. tolerating percocet, pain relatively well controlled. Hodgkin's disease with nodular sclerosis 05/27/2012 12/26/2015 Overview: Oncology history (per Dr. 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 Hodgkin's disease, unspecified 02/05/2012 05/11/2014 Vaginal bleeding 12/26/2015 Overview: --likely from thrombocytopenia. No menses in prior 8 months. Scant amount reported on 03/29 and 03/30, now resolved --monitor bleeding by counting pads --should f/u with her [employer] provider after BMT Premature menopause 12/26/19 16 Postmenopausal atrophic vaginitis 12/26/2015 Dyspareunia 12/26/2015 documented as of this encounter (statuses as of 10/26/2022) [facility] History of Past illness Narrative* Problem Noted Date Diagnosed Date Resolved Date Menorrhagia with regular cycle 03/15/2017 01/01/2018 Overview: Added automatically from request for surgery [id number] History of pulmonary embolism 04/25/2016 01/01/2018 Neoplastic [...] FOLLOW-UP 10/27/2012 Overview: 32 yo female from [place]. Family involved with care, at bedside. plan to discharge patient home - will arrange with case management for post op care as needed - follow up in OPD in 7-10 days Post-op pain 10/27/2012 12/26/2015 Overview: currently well controlled with [employer]. will start PO pain meds today 10/27. tolerating percocet, pain relatively well controlled. Hodgkin's disease with nodular sclerosis 05/27/2012 12/26/2015 Overview: Oncology history (per Dr. 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 Hodgkin's disease, unspecified 02/05/2012 05/11/2014 Vaginal bleeding 12/26/2015 Overview: --likely from thrombocytopenia. No menses in prior 8 months. Scant amount reported on 03/29 and 03/30, now resolved --monitor bleeding by counting pads --should f/u with her [employer] provider after BMT Premature menopause 12/26/19 16 Postmenopausal atrophic vaginitis 12/26/2015 Dyspareunia 12/26/2015 documented as of this encounter (statuses as of 11/06/2022) [facility] History of Past illness Narrative* Problem Noted Date Diagnosed Date Resolved Date Menorrhagia with regular cycle 03/15/2017 01/01/2018 Overview: Added automatically from request for surgery [id number] History of pulmonary embolism 04/25/2016 01/01/2018 Neoplastic [...] FOLLOW-UP 10/27/2012 Overview: 32 yo female from [place]. Family involved with care, at bedside. plan to discharge patient home - will arrange with case management for post op care as needed - follow up in OPD in 7-10 days Post-op pain 10/27/2012 12/26/2015 Overview: currently well controlled with [employer]. will start PO pain meds today 10/27. tolerating percocet, pain relatively well controlled. Hodgkin's disease with nodular sclerosis 05/27/2012 12/26/2015 Overview: Oncology history (per Dr. 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 Hodgkin's disease, unspecified 02/05/2012 05/11/2014 Vaginal bleeding 12/26/2015 Overview: --likely from thrombocytopenia. No menses in prior 8 months. Scant amount reported on 03/29 and 03/30, now resolved --monitor bleeding by counting pads --should f/u with her [employer] provider after BMT Premature menopause 12/26/19 16 Postmenopausal atrophic vaginitis 12/26/2015 Dyspareunia 12/26/2015 documented as of this encounter (statuses as of 11/11/2022) [facility] History of Past illness Narrative* Problem Noted Date Diagnosed Date Resolved Date Menorrhagia with regular cycle 03/15/2017 01/01/2018 Overview: Added automatically from request for surgery [id number] History of pulmonary embolism 04/25/2016 01/01/2018 Neoplastic [...] FOLLOW-UP 10/27/2012 Overview: 32 yo female from [place]. Family involved with care, at bedside. plan to discharge patient home - will arrange with case management for post op care as needed - follow up in OPD in 7-10 days Post-op pain 10/27/2012 12/26/2015 Overview: currently well controlled with [employer]. will start PO pain meds today 10/27. tolerating percocet, pain relatively well controlled. Hodgkin's disease with nodular sclerosis 05/27/2012 12/26/2015 Overview: Oncology history (per Dr. 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 Hodgkin's disease, unspecified 02/05/2012 05/11/2014 Vaginal bleeding 12/26/2015 Overview: --likely from thrombocytopenia. No menses in prior 8 months. Scant amount reported on 03/29 and 03/30, now resolved --monitor bleeding by counting pads --should f/u with her [employer] provider after BMT Premature menopause 12/26/19 16 Postmenopausal atrophic vaginitis 12/26/2015 Dyspareunia 12/26/2015 documented as of this encounter (statuses as of 11/13/2022) [facility] of Past illness Narrative* Problem Noted Date Diagnosed Date Resolved Date Menorrhagia with regular cycle 03/15/2017 01/01/2018 Overview: Added automatically from request for surgery [id number] History of pulmonary embolism 04/25/2016 01/01/2018 Neoplastic [...] FOLLOW-UP 10/27/2012 Overview: 32 yo female from [place]. Family involved with care, at bedside. plan to discharge patient home - will arrange with case management for post op care as needed - follow up in OPD in 7-10 days Post-op pain 10/27/2012 12/26/2015 Overview: currently well controlled with [employer]. will start PO pain meds today 10/27. tolerating percocet, pain relatively well controlled. Hodgkin's disease with nodular sclerosis 05/27/2012 12/26/2015 Overview: Oncology history (per Dr. 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 Hodgkin's disease, unspecified 02/05/2012 05/11/2014 Vaginal bleeding 12/26/2015 Overview: --likely from thrombocytopenia. No menses in prior 8 months. Scant amount reported on 03/29 and 03/30, now resolved --monitor bleeding by counting pads --should f/u with her [employer] provider after BMT Premature menopause 12/26/19 16 Postmenopausal atrophic vaginitis 12/26/2015 Dyspareunia 12/26/2015 documented as of this encounter (statuses as of 11/26/2022) [facility] of Past illness Narrative* Problem Noted Date Diagnosed Date Resolved Date Menorrhagia with regular cycle 03/15/2017 01/01/2018 Overview: Added automatically from request for surgery [id number] History of pulmonary embolism 04/25/2016 01/01/2018 Neoplastic [...] FOLLOW-UP 10/27/2012 Overview: 32 yo female from [place]. Family involved with care, at bedside. plan to discharge patient home - will arrange with case management for post op care as needed - follow up in OPD in 7-10 days Post-op pain 10/27/2012 12/26/2015 Overview: currently well controlled with [employer]. will start PO pain meds today 10/27. tolerating percocet, pain relatively well controlled. Hodgkin's disease with nodular sclerosis 05/27/2012 12/26/2015 Overview: Oncology history (per Dr. 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 Hodgkin's disease, unspecified 02/05/2012 05/11/2014 Vaginal bleeding 12/26/2015 Overview: --likely from thrombocytopenia. No menses in prior 8 months. Scant amount reported on 03/29 and 03/30, now resolved --monitor bleeding by counting pads --should f/u with her [employer] provider after BMT Premature menopause 12/26/19 16 Postmenopausal atrophic vaginitis 12/26/2015 Dyspareunia 12/26/2015 documented as of this encounter (statuses as of 12/04/2022) [facility] of Past illness Narrative* Problem Noted Date Diagnosed Date Resolved Date Menorrhagia with regular cycle 03/15/2017 01/01/2018 Overview: Added automatically from request for surgery [id number] History of pulmonary embolism 04/25/2016 01/01/2018 Neoplastic [...] FOLLOW-UP 10/27/2012 Overview: 32 yo female from [place]. Family involved with care, at bedside. plan to discharge patient home - will arrange with case management for post op care as needed - follow up in OPD in 7-10 days Post-op pain 10/27/2012 12/26/2015 Overview: currently well controlled with [employer]. will start PO pain meds today 10/27. tolerating percocet, pain relatively well controlled. Hodgkin's disease with nodular sclerosis 05/27/2012 12/26/2015 Overview: Oncology history (per Dr. 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 Hodgkin's disease, unspecified 02/05/2012 05/11/2014 Vaginal bleeding 12/26/2015 Overview: --likely from thrombocytopenia. No menses in prior 8 months. Scant amount reported on 03/29 and 03/30, now resolved --monitor bleeding by counting pads --should f/u with her [employer] provider after BMT Premature menopause 12/26/19 16 Postmenopausal atrophic vaginitis 12/26/2015 Dyspareunia 12/26/2015 documented as of this encounter (statuses as of 12/18/2022) [facility] of Past illness Narrative* Problem Noted Date Diagnosed Date Resolved Date Menorrhagia with regular cycle 03/15/2017 01/01/2018 Overview: Added automatically from request for surgery [id number] History of pulmonary embolism 04/25/2016 01/01/2018 Neoplastic [...] FOLLOW-UP 10/27/2012 Overview: 32 yo female from [place]. Family involved with care, at bedside. plan to discharge patient home - will arrange with case management for post op care as needed - follow up in OPD in 7-10 days Post-op pain 10/27/2012 12/26/2015 Overview: currently well controlled with [employer]. will start PO pain meds today 10/27. tolerating percocet, pain relatively well controlled. Hodgkin's disease with nodular sclerosis 05/27/2012 12/26/2015 Overview: Oncology history (per Dr. 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 Hodgkin's disease, unspecified 02/05/2012 05/11/2014 Vaginal bleeding 12/26/2015 Overview: --likely from thrombocytopenia. No menses in prior 8 months. Scant amount reported on 03/29 and 03/30, now resolved --monitor bleeding by counting pads --should f/u with her [employer] provider after BMT Premature menopause 12/26/19 16 Postmenopausal atrophic vaginitis 12/26/2015 Dyspareunia 12/26/2015 documented as of this encounter (statuses as of 12/31/2022) [facility] of Past illness Narrative* Problem Noted Date Diagnosed Date Resolved Date Menorrhagia with regular cycle 03/15/2017 01/01/2018 Overview: Added automatically from request for surgery [id number] History of pulmonary embolism 04/25/2016 01/01/2018 Neoplastic [...] FOLLOW-UP 10/27/2012 Overview: 32 yo female from [place]. Family involved with care, at bedside. plan to discharge patient home - will arrange with case management for post op care as needed - follow up in OPD in 7-10 days Post-op pain 10/27/2012 12/26/2015 Overview: currently well controlled with [employer]. will start PO pain meds today 10/27. tolerating percocet, pain relatively well controlled. Hodgkin's disease with nodular sclerosis 05/27/2012 12/26/2015 Overview: Oncology history (per Dr. 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 Hodgkin's disease, unspecified 02/05/2012 05/11/2014 Vaginal bleeding 12/26/2015 Overview: --likely from thrombocytopenia. No menses in prior 8 months. 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 Family involved with care, at bedside. plan to discharge patient home - will arrange with case management for post op care as needed - follow up in OPD in 7-10 days Post-op pain 10/27/2012 12/26/2015 Overview: currently well controlled with [employer]. will start PO pain meds today 10/27. tolerating percocet, pain relatively well controlled. Hodgkin's disease with nodular sclerosis 05/27/2012 12/26/2015 Overview: Oncology history (per Dr. 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 Hodgkin's disease, unspecified 02/05/2012 05/11/2014 Vaginal bleeding 12/26/2015 Overview: --likely from thrombocytopenia. No menses in prior 8 months. 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 Family involved with care, at bedside. plan to discharge patient home - will arrange with case management for post op care as needed - follow up in OPD in 7-10 days Post-op pain 10/27/2012 12/26/2015 Overview: currently well controlled with [employer]. will start PO pain meds today 10/27. tolerating percocet, pain relatively well controlled. Hodgkin's disease with nodular sclerosis 05/27/2012 12/26/2015 Overview: Oncology history (per Dr. 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 Hodgkin's disease, unspecified 02/05/2012 05/11/2014 Vaginal bleeding 12/26/2015 Overview: --likely from thrombocytopenia. No menses in prior 8 months. 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 Family involved with care, at bedside. plan to discharge patient home - will arrange with case management for post op care as needed - follow up in OPD in 7-10 days Post-op pain 10/27/2012 12/26/2015 Overview: currently well controlled with [employer]. will start PO pain meds today 10/27. tolerating percocet, pain relatively well controlled. Hodgkin's disease with nodular sclerosis 05/27/2012 12/26/2015 Overview: Oncology history (per Dr. 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 Hodgkin's disease, unspecified 02/05/2012 05/11/2014 Vaginal bleeding 12/26/2015 Overview: --likely from thrombocytopenia. No menses in prior 8 months. 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 [facility]* Diagnosis Muscle cramps Cramp of limb Nodular sclerosis classical Hodgkin lymphoma (HCC) Hodgkin's disease, nodular sclerosis, unspecified site, extranodal and solid organ sites [facility]* Diagnosis Muscle cramps Cramp of limb Nodular sclerosing Hodgkin's lymphoma, unspecified body region (HCC) [facility]* Diagnosis 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) Nausea Nausea alone [facility]* Diagnosis Hidradenitis suppurativa- Primary Hidradenitis Painful skin lesion Dermatofibroma of left knee [facility]* Diagnosis 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 [facility]* Diagnosis Nodular sclerosing Hodgkin's lymphoma, 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) 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 [facility]* Diagnosis Simple chronic bronchitis (HCC) Simple chronic bronchitis [facility]* Diagnosis Muscle cramps Cramp of limb Nodular sclerosing Hodgkin's lymphoma, unspecified body region (HCC) [facility] Diagnosis 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 Cancer related pain Neoplasm related pain (acute) (chronic) Encounter for palliative care [facility]* Diagnosis 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 [facility]* Diagnosis Nodular sclerosing Hodgkin's lymphoma, unspecified body region (HCC)- Primary Encounter for antineoplastic immunotherapy [facility] Diagnosis 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 Encounter for antineoplastic immunotherapy [facility] Diagnosis Encounter for palliative care- Primary 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) Muscle cramps Cramp of limb [facility]* Diagnosis Muscle cramps Cramp of limb Nodular sclerosis classical Hodgkin lymphoma (HCC) Hodgkin's disease, nodular sclerosis, unspecified site, extranodal and solid organ sites [facility]* Diagnosis Muscle cramps Cramp of limb Nodular sclerosing Hodgkin's lymphoma, unspecified body region (HCC) [facility]* Diagnosis 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 [facility]* Diagnosis Nodular sclerosing Hodgkin's lymphoma, unspecified body region (HCC)- Primary [facility]* Diagnosis Nodular sclerosing Hodgkin's lymphoma, unspecified body region (HCC)- Primary History of pulmonary embolism Personal history of pulmonary embolism Chemotherapy-induced neuropathy (HCC) 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 Muscle cramps Cramp of limb [facility]* Diagnosis 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 [facility]* Diagnosis History of pulmonary embolism Personal history of pulmonary embolism [facility]* Diagnosis 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 Nausea Nausea alone [facility]* Diagnosis 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 [facility]* Diagnosis Acne vulgaris- Primary Other acne [facility]* Diagnosis Nodular sclerosing Hodgkin's lymphoma, 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) 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 [facility]* Diagnosis 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 Encounter for antineoplastic immunotherapy Encounter for long-term (current) use of medications Encounter for long-term (current) use of other medications [facility]* Diagnosis Nodular sclerosing Hodgkin's lymphoma, unspecified body region (HCC)- Primary JOE (dyspnea on exertion) Other dyspnea and respiratory abnormality Chronic cough Cough Chest tightness Other chest pain [facility]* Diagnosis Muscle cramps Cramp of limb Nodular sclerosing Hodgkin's lymphoma, unspecified body region (HCC) [facility]* Diagnosis 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 Cancer related pain Neoplasm related pain (acute) (chronic) Encounter for palliative care [facility]* Diagnosis 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 [facility]* Diagnosis Nodular sclerosing Hodgkin's lymphoma, 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) 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 [facility]* Diagnosis Muscle cramps Cramp of limb Nodular sclerosis classical Hodgkin lymphoma (HCC) Hodgkin's disease, nodular sclerosis, unspecified site, extranodal and solid organ sites [facility]* Diagnosis Encounter for palliative care- Primary Opioid use agreement exists Encounters for other specified administrative purpose Anxiety Anxiety state, unspecified Cancer related pain Neoplasm related pain (acute) (chronic) 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) Muscle cramps Cramp of limb [facility]* Diagnosis 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 Encounter for antineoplastic immunotherapy [facility]* Diagnosis History of pulmonary embolism Personal history of pulmonary embolism [facility] Diagnosis Nodular sclerosis Hodgkin lymphoma [...] specified administrative purpose [facility]* Diagnosis 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) Muscle cramps Cramp of limb [facility]* Diagnosis Nodular sclerosing Hodgkin's lymphoma, 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) 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 [facility]* Diagnosis Chronic cough- Primary Cough Productive [...] for palliative care [facility]* Diagnosis Nodular sclerosing Hodgkin's lymphoma, 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) 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 [facility]* Diagnosis Nodular sclerosing Hodgkin's lymphoma, 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) 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 [facility]* Diagnosis Hidradenitis suppurativa- Primary Hidradenitis Painful skin lesion [facility]* Diagnosis Palliative care by specialist- Primary Nodular sclerosing Hodgkin's lymphoma, unspecified body region (HCC) Cancer related pain Neoplasm related pain (acute) (chronic) Opioid use agreement exists Encounters for other specified administrative purpose Muscle cramps Cramp of limb [facility]* Diagnosis 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) Nausea Nausea alone [facility]* Diagnosis 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 Cancer related pain Neoplasm related pain (acute) (chronic) Encounter for palliative care [facility]* Diagnosis Nodular sclerosing Hodgkin's lymphoma, 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) 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 [facility]* Diagnosis History of pulmonary embolism Personal history of pulmonary embolism [facility]* Diagnosis Muscle cramps Cramp of limb Nodular sclerosing Hodgkin's lymphoma, unspecified body region (HCC) [facility]* Diagnosis Nodular sclerosis Hodgkin lymphoma of [...] hypothyroidism Unspecified hypothyroidism documented in this encounter 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 noteNo assessment information availableTrihealth Work Phone: Evaluation note* Diagnosis Chronic cough Cough documented in this encounter [facility] note* Diagnosis Bronchitis Bronchitis, not specified as acute or chronic documented in this encounter [facility]* Diagnosis Restrictive lung disease- Primary Other diseases of lung, not elsewhere classified Chronic cough Cough Post-nasal drip Postnasal drip Hoarseness Dysphonia Dysphagia, unspecified type History of pulmonary embolism Personal history of pulmonary embolism documented in this encounter [facility] note* Diagnosis Bronchitis, not specified as acute or chronic- Primary Chronic cough Cough documented in this encounter 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 documented in this encounter [facility] general Narrative - [facility] [place] Other History general Narrative - Reported* Type Description Date Medical History Hodgkin lymphoma of lymph nodes of neck, unspecified Hodgkin lymphoma type Medical History Hypothyroid Medical History Tachycardia Medical History Neuropathy Medical History Pulmonary embolism Medical History 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 Surgical History biopsy Hospitalization History she has had several stay s for her dx [employer] [facility] Other Reason for referral (narrative)* Diagnostic Procedure Only (Routine) - Authorized Specialty Diagnoses / Procedures Referred By Heidi t Referred To Contact [facility] Diagnoses Hodgkin lymphoma, unspecified Hodgkin lymphoma type, unspecified body region (HCC) 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) Procedures NM PET/CT SKULL-THIGH SUBSEQUENT PET IMAGING CT ATTENUATION [place] [address] [place] [address] Molecular & Functional Imaging [address] [place], [place] [id number] Referral ID Status Reason Start Date Expiration Date Visits Requested Visits Authorized [id number] Authorized Auto-Generat ed Referral 06/14/2021 07/14/2022 1 1 [facility] for referral (narrative)* Diagnostic Procedure Only (Routine) - Authorized Specialty Diagnoses / Procedures Referred By Heidi george Referred To Contact [facility] Diagnoses Nodular sclerosing Hodgkin's lymphoma, unspecified body region (HCC) Procedures NM PET/CT SKULL-THIGH SUBSEQUENT PET IMAGING CT ATTENUATION [place] [address] [place] [id number] Molecular & Functional Imaging [address] [place] [address] Referral ID Status Reason Start Date Expiration Date Visits Requested Visits Authorized [id number] Authorized Auto-Generat ed Referral 11/15/2021 12/15/2022 1 1 [facility] for referral (narrative)* Outpatient Procedure (Routine) - Pending Review Specialty Diagnoses / Procedures Referred By Heidi george Referred To Contact [facility] Diagnoses Nodular sclerosing Hodgkin's lymphoma, unspecified body region (HCC) JOE (dyspnea on exertion) Chronic cough Procedures ECHO ECHO TTHRC R-T 2D W/WOM-MODE COMPL SPEC&COLR D Sylvia Mancilla, MARINE ENGINE MACHINIST APPRENTICE.RECOVERY AUDITOR [id number] [place] [address] [facility] [place] [address] [place] [address] Referral ID Status Reason Start Date Expiration Date Visits Requested Visits Authorized [id number] Pending Review Auto-Generat ed Referral 12/27/2021 12/27/2022 1 1 [facility] for referral (narrative)* Diagnostic Procedure Only (Routine) - Pending Review Specialty Diagnoses / Procedures [facility] MOLECULAR & FUNCTIONAL IMAGING Diagnoses Nodular sclerosing Hodgkin's lymphoma, unspecified body region (HCC) Procedures NM PET/CT SKULL-THIGH SUBSEQUENT PET IMAGING CT ATTENUATION [place] [address] [place] [id number] Molecular & Functional Imaging [address] [id number] Referral ID Status Reason Start Date Expiration Date Visits Requested Visits Authorized [id number] Pending Review Auto-Generat ed Referral 07/18/2022 08/17/2023 1 1 [facility] for referral (narrative)* Outpatient Procedure (Routine) - Authorized Specialty Diagnoses / Procedures Referred By [facility] t Referred To Contact [facility] Diagnoses Bronchitis Procedures NITRIC OXIDE, EXHALED NITRIC OXIDE GAS DETERMINATION Ella Chan APRN.CNP [address] [place] [address] [facility] [place] [address] [place] [id number] Referral ID Status Reason Start Date Expiration Date Visits Requested Visits Authorized [id number] Authorized Auto-Generat ed Referral 08/02/2022 09/01/2023 1 1 * Outpatient Procedure (Routine) - Authorized Specialty Diagnoses / Procedures Referred By [facility] Referred To Contact [facility] Diagnoses Chronic cough Procedures LUNG DIFFUSION CAPACITY (DLCO) DIFFUSING CAPACITY Ella Chan APRN.CNP [address] [place] [address] [facility] [place] [address] [place] [id number] Referral ID Status Reason Start Date Expiration Date Visits Requested Visits Authorized [id number] Authorized Auto-Generat ed Referral 08/02/2022 09/01/2023 1 1 * Outpatient Procedure (Routine) - Authorized Specialty Diagnoses / Procedures Referred By [facility] t Referred To Contact [facility] Diagnoses Chronic cough Procedures SPIROMETRY - BASELINE AND POST DILATOR BRNCDILAT RSPSE SPMTRY PRE&POST-BRNCDILAT ADMElla Cuevas APRN.CNP [address] [place] [address] [facility] [place] [address] [place] [address] Referral ID Status Reason Start Date Expiration Date Visits Requested Visits Authorized [id number] Authorized Auto-Generat ed Referral 08/02/2022 09/01/2023 1 1 [facility] for referral (narrative)* Diagnostic Procedure Only (Routine) - Pending Review Specialty Diagnoses / Procedures Referred By [facility] t Referred To Contact MOLECULAR & FUNCTIONAL IMAGING 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) Procedures NM PET/CT SKULL-THIGH SUBSEQUENT PET IMAGING CT ATTENUATION [place] [address] [place] [address] Molecular & Functional Imaging [address] [place] [address] Referral ID Status Reason Start Date Expiration Date Visits Requested Visits Authorized [id number] Pending Review Auto-Generat ed Referral 08/22/2022 09/21/2023 1 1 [facility] for referral (narrative)* Diagnostic Procedure Only (Routine) - Authorized Specialty Diagnoses / Procedures Referred By [facility] t Referred To Contact MOLECULAR & FUNCTIONAL IMAGING Diagnoses 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) Procedures NM PET/CT SKULL-THIGH SUBSEQUENT PET IMAGING CT ATTENUATION SKULL BASE MID-THIGH Alexsander Ledezma MD [address] [place] [address] [place] [address] Molecular & Functional Imaging [address] [place] [address] Referral ID Status Reason Start Date Expiration Date Visits Requested Visits Authorized [id number] Authorized Auto-Generat ed Referral 01/31/2024 1 1 [facility] Summary Purpose Family History No Family History Records FoundNo Family History Records FoundNo Family History Records FoundNo Family History Records FoundNo Family History Records FoundNo Family History Records FoundNo Family History Records FoundNo Family History Records FoundNo Family History Records FoundNo Family History Records Found Advance Directives Documents on File Type Date Recorded 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 Advance Directive(s) 09/30/2017 12:34 PM Advance Directive(s) 04/16/2016 9:44 PM Advance Directive(s) 01/28/2016 8:20 PM Documents on File Type Date Recorded 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 Advance Directive(s) 09/30/2017 12:34 PM Advance Directive(s) 04/16/2016 9:44 PM Advance Directive(s) 01/28/2016 8:20 PM Documents on File Type Date Recorded 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 Advance Directive(s) 09/20/2021 8:56 PM [...] Rate Site [facility], INTRALESIONAL, ONCE, 1 [...] type Hoarseness Procedures CONSULT TO ENT OFFICE/OUTPATIENT [facility] 60 MINUTES Kylie Nunes, LORY.RECOVERY AUDITOR [address] [phone] Referral ID Status Reason Start Date Expiration Date Visits Requested Visits Authorized [id number] Authorized PCP Requested Referral 03/28/2023 03/27/2024 1 1 Specialty Diagnoses / Procedures Referred By [facility] t Referred To Contact CT IMAGING Diagnoses Acute cough Procedures CT CHEST WO IVCON DIAGNOSTIC COMPUTED TOMOGRAPHY THORAX [place] [phone] Imaging Referral ID Status Reason Start Date Expiration Date V isits Requested Visits Authorized [id number] Closed Auto-Generate d Referral 05/22/2022 06/21/2023 1 1 Additional Source Comments INFORMATION SOURCE (unrecogn ized section and content) DATE CREATED AUTHOR 03/03/2019 [facility] DATE CREATED AUTHOR AUTHOR'S ORGANIZ ATION 09/22/2019 [facility] DATE CREATED AUTHOR AUTHOR[facility]S ORGANIZ AT[facility] DATE CREATED AUTHOR AUTHOR'S ORGANIZ ATION 07/08/2021 [facility] DATE CREATED AUTHOR AUTHOR'S ORGANIZ ATION 09/26/2021 [facility] DATE CREATED AUTHOR AUTHOR'S ORGANIZ ATION 06/23/2022 [facility] DATE CREATED AUTHOR AUTHOR'S ORGANIZ ATION 10/19/2022 [facility] DATE CREATED AUTHOR AUTHOR'S ORGANIZ ATION 03/29/2023 [facility] DATE CREATED AUTHOR AUTHOR'S ORGANIZ ATION 03/30/2023 [facility] DATE CREATED AUTHOR AUTHOR'S ORGANIZ ATION 03/31/2023 [facility] EPIC Source Comments (unrecognize d section and content) In the event this informatio n is protected by the Federal Confidentiality of Alcohol and Drug Abuse Patient Records regulations: The Federal rules restrict any use of the information to criminally investigate or prosecute any alcohol or drug abuse patient.[facility] the event this information is protected by the Federal Confidentiality of Alcohol and Drug Abuse Patient Records regulations: The Federal rules restrict any use of the information to criminally investigate or prosecute any alcohol or drug abuse patient.[facility] the event this information is protected by the Federal Confidentiality of Alcohol and Drug Abuse Patient Records regulations: The Federal rules restrict any use of the information to criminally investigate or prosecute any alcohol or drug abuse patient.[facility] the event this information is protected by the Federal Confidentiality of Alcohol and Drug Abuse Patient Records regulations: The Federal rules restrict any use of the information to criminally investigate or prosecute any alcohol or drug abuse patient.[facility] the event this information is protected by the Federal Confidentiality of Alcohol and Drug Abuse Patient Records regulations: The Federal rules restrict any use of the information to criminally investigate or prosecute any alcohol or drug abuse patient.[facility] the event this information is protected by the Federal Confidentiality of Alcohol and Drug Abuse Patient Records regulations: The Federal rules restrict any use of the information to criminally investigate or prosecute any alcohol or drug abuse patient.[facility] the event this information is protected by the Federal Confidentiality of Alcohol and Drug Abuse Patient Records regulations: The Federal rules restrict any use of the information to criminally investigate or prosecute any alcohol or drug abuse patient.[facility] the event this information is protected by the Federal Confidentiality of Alcohol and Drug Abuse Patient Records regulations: The Federal rules restrict any use of the information to criminally investigate or prosecute any alcohol or drug abuse patient.[facility] the event this information is protected by the Federal Confidentiality of Alcohol and Drug Abuse Patient Records regulations: The Federal rules restrict any use of the information to criminally investigate or prosecute any alcohol or drug abuse patient.[facility] the event this information is protected by the Federal Confidentiality of Alcohol and Drug Abuse Patient Records regulations: The Federal rules restrict any use of the information to criminally investigate or prosecute any alcohol or drug abuse patient.[facility] the event this information is protected by the Federal Confidentiality of Alcohol and Drug Abuse Patient Records regulations: The Federal rules restrict any use of the information to criminally investigate or prosecute any alcohol or drug abuse patient.[facility] the event this information is protected by the Federal Confidentiality of Alcohol and Drug Abuse Patient Records regulations: The Federal rules restrict any use of the information to criminally investigate or prosecute any alcohol or drug abuse patient.[facility] the event this information is protected by the Federal Confidentiality of Alcohol and Drug Abuse Patient Records regulations: The Federal rules restrict any use of the information to criminally investigate or prosecute any alcohol or drug abuse patient.[facility] the event this information is protected by the Federal Confidentiality of Alcohol and Drug Abuse Patient Records regulations: The Federal rules restrict any use of the information to criminally investigate or prosecute any alcohol or drug abuse patient.[facility] the event this information is protected by the Federal Confidentiality of Alcohol and Drug Abuse Patient Records regulations: The Federal rules restrict any use of the information to criminally investigate or prosecute any alcohol or drug abuse patient.[facility] the event this information is protected by the Federal Confidentiality of Alcohol and Drug Abuse Patient Records regulations: The Federal rules restrict any use of the information to criminally investigate or prosecute any alcohol or drug abuse patient.[facility] the event this information is protected by the Federal Confidentiality of Alcohol and Drug Abuse Patient Records regulations: The Federal rules restrict any use of the information to criminally investigate or prosecute any alcohol or drug abuse patient.[facility] the event this information is protected by the Federal Confidentiality of Alcohol and Drug Abuse Patient Records regulations: The Federal rules restrict any use of the information to criminally investigate or prosecute any alcohol or drug abuse patient.[facility]In the event this information is protected by the Federal Confidentiality of Alcohol and Drug Abuse Patient Records regulations: The Federal rules restrict any use of the information to criminally investigate or prosecute any alcohol or drug abuse patient.[facility]In the event this information is protected by the Federal Confidentiality of Alcohol and Drug Abuse Patient Records regulations: The Federal rules restrict any use of the information to criminally investigate or prosecute any alcohol or drug abuse patient.[facility]In the event this information is protected by the Federal Confidentiality of Alcohol and Drug Abuse Patient Records regulations: The Federal rules restrict any use of the information to criminally investigate or prosecute any alcohol or drug abuse patient.[facility] the event this information is protected by the Federal Confidentiality of Alcohol and Drug Abuse Patient Records regulations: The Federal rules restrict any use of the information to criminally investigate or prosecute any alcohol or drug abuse patient.[facility] the event this information is protected by the Federal Confidentiality of Alcohol and Drug Abuse Patient Records regulations: The Federal rules restrict any use of the information to criminally investigate or prosecute any alcohol or drug abuse patient.[facility]In the event this information is protected by the Federal Confidentiality of Alcohol and Drug Abuse Patient Records regulations: The Federal rules restrict any use of the information to criminally investigate or prosecute any alcohol or drug abuse patient.[facility]In the event this information is protected by the Federal Confidentiality of Alcohol and Drug Abuse Patient Records regulations: The Federal rules restrict any use of the information to criminally investigate or prosecute any alcohol or drug abuse patient.[facility]In the event this information is protected by the Federal Confidentiality of Alcohol and Drug Abuse Patient Records regulations: The Federal rules restrict any use of the information to criminally investigate or prosecute any alcohol or drug abuse patient.[facility]In the event this information is protected by the Federal Confidentiality of Alcohol and Drug Abuse Patient Records regulations: The Federal rules restrict any use of the information to criminally investigate or prosecute any alcohol or drug abuse patient.[facility] HospitalIn the event this information is protected by the Federal Confidentiality of Alcohol and Drug Abuse Patient Records regulations: The Federal rules restrict any use of the information to criminally investigate or prosecute any alcohol or drug abuse patient.[facility]In the event this information is protected by the Federal Confidentiality of Alcohol and Drug Abuse Patient Records regulations: The Federal rules restrict any use of the information to criminally investigate or prosecute any alcohol or drug abuse patient.[facility]In the event this information is protected by the Federal Confidentiality of Alcohol and Drug Abuse Patient Records regulations: The Federal rules restrict any use of the information to criminally investigate or prosecute any alcohol or drug abuse patient.[facility] HospitalIn the event this information is protected by the Federal Confidentiality of Alcohol and Drug Abuse Patient Records regulations: The Federal rules restrict any use of the information to criminally investigate or prosecute any alcohol or drug abuse patient.[facility] HospitalIn the event this information is protected by the Federal Confidentiality of Alcohol and Drug Abuse Patient Records regulations: The Federal rules restrict any use of the information to criminally investigate or prosecute any alcohol or drug abuse patient.[facility] HospitalIn the event this information is protected by the Federal Confidentiality of Alcohol and Drug Abuse Patient Records regulations: The Federal rules restrict any use of the information to criminally investigate or prosecute any alcohol or drug abuse patient.[facility]In the event this information is protected by the Federal Confidentiality of Alcohol and Drug Abuse Patient Records regulations: The Federal rules restrict any use of the information to criminally investigate or prosecute any alcohol or drug abuse patient.[facility] HospitalIn the event this information is protected by the Federal Confidentiality of Alcohol and Drug Abuse Patient Records regulations: The Federal rules restrict any use of the information to criminally investigate or prosecute any alcohol or drug abuse patient.[facility] HospitalIn the event this information is protected by the Federal Confidentiality of Alcohol and Drug Abuse Patient Records regulations: The Federal rules restrict any use of the information to criminally investigate or prosecute any alcohol or drug abuse patient.[facility] HospitalIn the event this information is protected by the Federal Confidentiality of Alcohol and Drug Abuse Patient Records regulations: The Federal rules restrict any use of the information to criminally investigate or prosecute any alcohol or drug abuse patient.[facility]In the event this information is protected by the Federal Confidentiality of Alcohol and Drug Abuse Patient Records regulations: The Federal rules restrict any use of the information to criminally investigate or prosecute any alcohol or drug abuse patient.[facility]In the event this information is protected by the Federal Confidentiality of Alcohol and Drug Abuse Patient Records regulations: The Federal rules restrict any use of the information to criminally investigate or prosecute any alcohol or drug abuse patient.[facility]In the event this information is protected by the Federal Confidentiality of Alcohol and Drug Abuse Patient Records regulations: The Federal rules restrict any use of the information to criminally investigate or prosecute any alcohol or drug abuse patient.[facility] HospitalIn the event this information is protected by the Federal Confidentiality of Alcohol and Drug Abuse Patient Records regulations: The Federal rules restrict any use of the information to criminally investigate or prosecute any alcohol or drug abuse patient.[facility] HospitalIn the event this information is protected by the Federal Confidentiality of Alcohol and Drug Abuse Patient Records regulations: The Federal rules restrict any use of the information to criminally investigate or prosecute any alcohol or drug abuse patient.[facility] HospitalIn the event this information is protected by the Federal Confidentiality of Alcohol and Drug Abuse Patient Records regulations: The Federal rules restrict any use of the information to criminally investigate or prosecute any alcohol or drug abuse patient.[facility] HospitalIn the event this information is protected by the Federal Confidentiality of Alcohol and Drug Abuse Patient Records regulations: The Federal rules restrict any use of the information to criminally investigate or prosecute any alcohol or drug abuse patient.[facility] HospitalIn the event this information is protected by the Federal Confidentiality of Alcohol and Drug Abuse Patient Records regulations: The Federal rules restrict any use of the information to criminally investigate or prosecute any alcohol or drug abuse patient.[facility] HospitalIn the event this information is protected by the Federal Confidentiality of Alcohol and Drug Abuse Patient Records regulations: The Federal rules restrict any use of the information to criminally investigate or prosecute any alcohol or drug abuse patient.[facility]In the event this information is protected by the Federal Confidentiality of Alcohol and Drug Abuse Patient Records regulations: The Federal rules restrict any use of the information to criminally investigate or prosecute any alcohol or drug abuse patient.[facility] HospitalIn the event this information is protected by the Federal Confidentiality of Alcohol and Drug Abuse Patient Records regulations: The Federal rules restrict any use of the information to criminally investigate or prosecute any alcohol or drug abuse patient.[facility]In the event this information is protected by the Federal Confidentiality of Alcohol and Drug Abuse Patient Records regulations: The Federal rules restrict any use of the information to criminally investigate or prosecute any alcohol or drug abuse patient.[facility]In the event this information is protected by the Federal Confidentiality of Alcohol and Drug Abuse Patient Records regulations: The Federal rules restrict any use of the information to criminally investigate or prosecute any alcohol or drug abuse patient.[facility] HospitalIn the event this information is protected by the Federal Confidentiality of Alcohol and Drug Abuse Patient Records regulations: The Federal rules restrict any use of the information to criminally investigate or prosecute any alcohol or drug abuse patient.[facility] HospitalIn the event this information is protected by the Federal Confidentiality of Alcohol and Drug Abuse Patient Records regulations: The Federal rules restrict any use of the information to criminally investigate or prosecute any alcohol or drug abuse patient.[facility] HospitalIn the event this information is protected by the Federal Confidentiality of Alcohol and Drug Abuse Patient Records regulations: The Federal rules restrict any use of the information to criminally investigate or prosecute any alcohol or drug abuse patient.[facility] HospitalIn the event this information is protected by the Federal Confidentiality of Alcohol and Drug Abuse Patient Records regulations: The Federal rules restrict any use of the information to criminally investigate or prosecute any alcohol or drug abuse patient.[facility] HospitalIn the event this information is protected by the Federal Confidentiality of Alcohol and Drug Abuse Patient Records regulations: The Federal rules restrict any use of the information to criminally investigate or prosecute any alcohol or drug abuse patient.[facility] HospitalIn the event this information is protected by the Federal Confidentiality of Alcohol and Drug Abuse Patient Records regulations: The Federal rules restrict any use of the information to criminally investigate or prosecute any alcohol or drug abuse patient.[facility] HospitalIn the event this information is protected by the Federal Confidentiality of Alcohol and Drug Abuse Patient Records regulations: The Federal rules restrict any use of the information to criminally investigate or prosecute any alcohol or drug abuse patient.[facility] HospitalIn the event this information is protected by the Federal Confidentiality of Alcohol and Drug Abuse Patient Records regulations: The Federal rules restrict any use of the information to criminally investigate or prosecute any alcohol or drug abuse patient.[facility] HospitalIn the event this information is protected by the Federal Confidentiality of Alcohol and Drug Abuse Patient Records regulations: The Federal rules restrict any use of the information to criminally investigate or prosecute any alcohol or drug abuse patient.[facility] HospitalIn the event this information is protected by the Federal Confidentiality of Alcohol and Drug Abuse Patient Records regulations: The Federal rules restrict any use of the information to criminally investigate or prosecute any alcohol or drug abuse patient.[facility] HospitalIn the event this information is protected by the Federal Confidentiality of Alcohol and Drug Abuse Patient Records regulations: The Federal rules restrict any use of the information to criminally investigate or prosecute any alcohol or drug abuse patient.[facility] HospitalIn the event this information is protected by the Federal Confidentiality of Alcohol and Drug Abuse Patient Records regulations: The Federal rules restrict any use of the information to criminally investigate or prosecute any alcohol or drug abuse patient.[facility] HospitalIn the event this information is protected by the Federal Confidentiality of Alcohol and Drug Abuse Patient Records regulations: The Federal rules restrict any use of the information to criminally investigate or prosecute any alcohol or drug abuse patient.[facility] HospitalIn the event this information is protected by the Federal Confidentiality of Alcohol and Drug Abuse Patient Records regulations: The Federal rules restrict any use of the information to criminally investigate or prosecute any alcohol or drug abuse patient.[facility] HospitalIn the event this information is protected by the Federal Confidentiality of Alcohol and Drug Abuse Patient Records regulations: The Federal rules restrict any use of the information to criminally investigate or prosecute any alcohol or drug abuse patient.[facility] HospitalIn the event this information is protected by the Federal Confidentiality of Alcohol and Drug Abuse Patient Records regulations: The Federal rules restrict any use of the information to criminally investigate or prosecute any alcohol or drug abuse patient.[facility] HospitalIn the event this information is protected by the Federal Confidentiality of Alcohol and Drug Abuse Patient Records regulations: The Federal rules restrict any use of the information to criminally investigate or prosecute any alcohol or drug abuse patient.[facility] HospitalIn the event this information is protected by the Federal Confidentiality of Alcohol and Drug Abuse Patient Records regulations: The Federal rules restrict any use of the information to criminally investigate or prosecute any alcohol or drug abuse patient.[facility] HospitalIn the event this information is protected by the Federal Confidentiality of Alcohol and Drug Abuse Patient Records regulations: The Federal rules restrict any use of the information to criminally investigate or prosecute any alcohol or drug abuse patient.[facility] HospitalIn the event this information is protected by the Federal Confidentiality of Alcohol and Drug Abuse Patient Records regulations: The Federal rules restrict any use of the information to criminally investigate or prosecute any alcohol or drug abuse patient.[facility] HospitalIn the event this information is protected by the Federal Confidentiality of Alcohol and Drug Abuse Patient Records regulations: The Federal rules restrict any use of the information to criminally investigate or prosecute any alcohol or drug abuse patient.[facility] HospitalIn the event this information is protected by the Federal Confidentiality of Alcohol and Drug Abuse Patient Records regulations: The Federal rules restrict any use of the information to criminally investigate or prosecute any alcohol or drug abuse patient.[facility] HospitalIn the event this information is protected by the Federal Confidentiality of Alcohol and Drug Abuse Patient Records regulations: The Federal rules restrict any use of the information to criminally investigate or prosecute any alcohol or drug abuse patient.[facility] HospitalIn the event this information is protected by the Federal Confidentiality of Alcohol and Drug Abuse Patient Records regulations: The Federal rules restrict any use of the information to criminally investigate or prosecute any alcohol or drug abuse patient.[facility] HospitalIn the event this information is protected by the Federal Confidentiality of Alcohol and Drug Abuse Patient Records regulations: The Federal rules restrict any use of the information to criminally investigate or prosecute any alcohol or drug abuse patient.[facility] HospitalIn the event this information is protected by the Federal Confidentiality of Alcohol and Drug Abuse Patient Records regulations: The Federal rules restrict any use of the information to criminally investigate or prosecute any alcohol or drug abuse patient.[facility] HospitalIn the event this information is protected by the Federal Confidentiality of Alcohol and Drug Abuse Patient Records regulations: The Federal rules restrict any use of the information to criminally investigate or prosecute any alcohol or drug abuse patient.[facility] HospitalIn the event this information is protected by the Federal Confidentiality of Alcohol and Drug Abuse Patient Records regulations: The Federal rules restrict any use of the information to criminally investigate or prosecute any alcohol or drug abuse patient.[facility] HospitalIn the event this information is protected by the Federal Confidentiality of Alcohol and Drug Abuse Patient Records regulations: The Federal rules restrict any use of the information to criminally investigate or prosecute any alcohol or drug abuse patient.[facility] HospitalIn the event this information is protected by the Federal Confidentiality of Alcohol and Drug Abuse Patient Records regulations: The Federal rules restrict any use of the information to criminally investigate or prosecute any alcohol or drug abuse patient.[facility] HospitalIn the event this information is protected by the Federal Confidentiality of Alcohol and Drug Abuse Patient Records regulations: The Federal rules restrict any use of the information to criminally investigate or prosecute any alcohol or drug abuse patient.[facility] HospitalIn the event this information is protected by the Federal Confidentiality of Alcohol and Drug Abuse Patient Records regulations: The Federal rules restrict any use of the information to criminally investigate or prosecute any alcohol or drug abuse patient.[facility] HospitalIn the event this information is protected by the Federal Confidentiality of Alcohol and Drug Abuse Patient Records regulations: The Federal rules restrict any use of the information to criminally investigate or prosecute any alcohol or drug abuse patient.[facility] HospitalIn the event this information is protected by the Federal Confidentiality of Alcohol and Drug Abuse Patient Records regulations: The Federal rules restrict any use of the information to criminally investigate or prosecute any alcohol or drug abuse patient.[facility] HospitalIn the event this information is protected by the Federal Confidentiality of Alcohol and Drug Abuse Patient Records regulations: The Federal rules restrict any use of the information to criminally investigate or prosecute any alcohol or drug abuse patient.[facility] HospitalIn the event this information is protected by the Federal Confidentiality of Alcohol and Drug Abuse Patient Records regulations: The Federal rules restrict any use of the information to criminally investigate or prosecute any alcohol or drug abuse patient.[facility] HospitalIn the event this information is protected by the Federal Confidentiality of Alcohol and Drug Abuse Patient Records regulations: The Federal rules restrict any use of the information to criminally investigate or prosecute any alcohol or drug abuse patient.[facility] HospitalIn the event this information is protected by the Federal Confidentiality of Alcohol and Drug Abuse Patient Records regulations: The Federal rules restrict any use of the information to criminally investigate or prosecute any alcohol or drug abuse patient.[facility] HospitalIn the event this information is protected by the Federal Confidentiality of Alcohol and Drug Abuse Patient Records regulations: The Federal rules restrict any use of the information to criminally investigate or prosecute any alcohol or drug abuse patient.[facility] HospitalIn the event this information is protected by the Federal Confidentiality of Alcohol and Drug Abuse Patient Records regulations: The Federal rules restrict any use of the information to criminally investigate or prosecute any alcohol or drug abuse patient.[facility] HospitalIn the event this information is protected by the Federal Confidentiality of Alcohol and Drug Abuse Patient Records regulations: The Federal rules restrict any use of the information to criminally investigate or prosecute any alcohol or drug abuse patient.[facility] HospitalIn the event this information is protected by the Federal Confidentiality of Alcohol and Drug Abuse Patient Records regulations: The Federal rules restrict any use of the information to criminally investigate or prosecute any alcohol or drug abuse patient.[facility] HospitalIn the event this information is protected by the Federal Confidentiality of Alcohol and Drug Abuse Patient Records regulations: The Federal rules restrict any use of the information to criminally investigate or prosecute any alcohol or drug abuse patient.[facility] HospitalIn the event this information is protected by the Federal Confidentiality of Alcohol and Drug Abuse Patient Records regulations: The Federal rules restrict any use of the information to criminally investigate or prosecute any alcohol or drug abuse patient.[facility] HospitalIn the event this information is protected by the Federal Confidentiality of Alcohol and Drug Abuse Patient Records regulations: The Federal rules restrict any use of the information to criminally investigate or prosecute any alcohol or drug abuse patient.[facility] HospitalIn the event this information is protected by the Federal Confidentiality of Alcohol and Drug Abuse Patient Records regulations: The Federal rules restrict any use of the information to criminally investigate or prosecute any alcohol or drug abuse patient.[facility] HospitalIn the event this information is protected by the Federal Confidentiality of Alcohol and Drug Abuse Patient Records regulations: The Federal rules restrict any use of the information to criminally investigate or prosecute any alcohol or drug abuse patient.[facility] HospitalIn the event this information is protected by the Federal Confidentiality of Alcohol and Drug Abuse Patient Records regulations: The Federal rules restrict any use of the information to criminally investigate or prosecute any alcohol or drug abuse patient.[facility] HospitalIn the event this information is protected by the Federal Confidentiality of Alcohol and Drug Abuse Patient Records regulations: The Federal rules restrict any use of the information to criminally investigate or prosecute any alcohol or drug abuse patient.[facility] HospitalIn the event this information is protected by the Federal Confidentiality of Alcohol and Drug Abuse Patient Records regulations: The Federal rules restrict any use of the information to criminally investigate or prosecute any alcohol or drug abuse patient.[facility] HospitalIn the event this information is protected by the Federal Confidentiality of Alcohol and Drug Abuse Patient Records regulations: The Federal rules restrict any use of the information to criminally investigate or prosecute any alcohol or drug abuse patient.[facility] HospitalIn the event this information is protected by the Federal Confidentiality of Alcohol and Drug Abuse Patient Records regulations: The Federal rules restrict any use of the information to criminally investigate or prosecute any alcohol or drug abuse patient.[facility] HospitalIn the event this information is protected by the Federal Confidentiality of Alcohol and Drug Abuse Patient Records regulations: The Federal rules restrict any use of the information to criminally investigate or prosecute any alcohol or drug abuse patient.[facility] HospitalIn the event this information is protected by the Federal Confidentiality of Alcohol and Drug Abuse Patient Records regulations: The Federal rules restrict any use of the information to criminally investigate or prosecute any alcohol or drug abuse patient.[facility] HospitalIn the event this information is protected by the Federal Confidentiality of Alcohol and Drug Abuse Patient Records regulations: The Federal rules restrict any use of the information to criminally investigate or prosecute any alcohol or drug abuse patient.[facility] HospitalIn the event this information is protected by the Federal Confidentiality of Alcohol and Drug Abuse Patient Records regulations: The Federal rules restrict any use of the information to criminally investigate or prosecute any alcohol or drug abuse patient.[facility] HospitalIn the event this information is protected by the Federal Confidentiality of Alcohol and Drug Abuse Patient Records regulations: The Federal rules restrict any use of the information to criminally investigate or prosecute any alcohol or drug abuse patient.[facility] HospitalIn the event this information is protected by the Federal Confidentiality of Alcohol and Drug Abuse Patient Records regulations: The Federal rules restrict any use of the information to criminally investigate or prosecute any alcohol or drug abuse patient.[facility] HospitalIn the event this information is protected by the Federal Confidentiality of Alcohol and Drug Abuse Patient Records regulations: The Federal rules restrict any use of the information to criminally investigate or prosecute any alcohol or drug abuse patient.[facility] HospitalIn the event this information is protected by the Federal Confidentiality of Alcohol and Drug Abuse Patient Records regulations: The Federal rules restrict any use of the information to criminally investigate or prosecute any alcohol or drug abuse patient.[facility] HospitalIn the event this information is protected by the Federal Confidentiality of Alcohol and Drug Abuse Patient Records regulations: The Federal rules restrict any use of the information to criminally investigate or prosecute any alcohol or drug abuse patient.[facility] HospitalIn the event this information is protected by the Federal Confidentiality of Alcohol and Drug Abuse Patient Records regulations: The Federal rules restrict any use of the information to criminally investigate or prosecute any alcohol or drug abuse patient.[facility] HospitalIn the event this information is protected by the Federal Confidentiality of Alcohol and Drug Abuse Patient Records regulations: The Federal rules restrict any use of the information to criminally investigate or prosecute any alcohol or drug abuse patient.[facility] HospitalIn the event this information is protected by the Federal Confidentiality of Alcohol and Drug Abuse Patient Records regulations: The Federal rules restrict any use of the information to criminally investigate or prosecute any alcohol or drug abuse patient.[facility] HospitalIn the event this information is protected by the Federal Confidentiality of Alcohol and Drug Abuse Patient Records regulations: The Federal rules restrict any use of the information to criminally investigate or prosecute any alcohol or drug abuse patient.[facility] HospitalIn the event this information is protected by the Federal Confidentiality of Alcohol and Drug Abuse Patient Records regulations: The Federal rules restrict any use of the information to criminally investigate or prosecute any alcohol or drug abuse patient.[facility] HospitalIn the event this information is protected by the Federal Confidentiality of Alcohol and Drug Abuse Patient Records regulations: The Federal rules restrict any use of the information to criminally investigate or prosecute any alcohol or drug abuse patient.[facility] HospitalIn the event this information is protected by the Federal Confidentiality of Alcohol and Drug Abuse Patient Records regulations: The Federal rules restrict any use of the information to criminally investigate or prosecute any alcohol or drug abuse patient.[facility] HospitalIn the event this information is protected by the Federal Confidentiality of Alcohol and Drug Abuse Patient Records regulations: The Federal rules restrict any use of the information to criminally investigate or prosecute any alcohol or drug abuse patient.[facility] HospitalIn the event this information is protected by the Federal Confidentiality of Alcohol and Drug Abuse Patient Records regulations: The Federal rules restrict any use of the information to criminally investigate or prosecute any alcohol or drug abuse patient.[facility] HospitalIn the event this information is protected by the Federal Confidentiality of Alcohol and Drug Abuse Patient Records regulations: The Federal rules restrict any use of the information to criminally investigate or prosecute any alcohol or drug abuse patient.[facility] HospitalIn the event this information is protected by the Federal Confidentiality of Alcohol and Drug Abuse Patient Records regulations: The Federal rules restrict any use of the information to criminally investigate or prosecute any alcohol or drug abuse patient.[facility] HospitalIn the event this information is protected by the Federal Confidentiality of Alcohol and Drug Abuse Patient Records regulations: The Federal rules restrict any use of the information to criminally investigate or prosecute any alcohol or drug abuse patient.[facility] HospitalIn the event this information is protected by the Federal Confidentiality of Alcohol and Drug Abuse Patient Records regulations: The Federal rules restrict any use of the information to criminally investigate or prosecute any alcohol or drug abuse patient.[facility] HospitalIn the event this information is protected by the Federal Confidentiality of Alcohol and Drug Abuse Patient Records regulations: The Federal rules restrict any use of the information to criminally investigate or prosecute any alcohol or drug abuse patient.[facility] HospitalIn the event this information is protected by the Federal Confidentiality of Alcohol and Drug Abuse Patient Records regulations: The Federal rules restrict any use of the information to criminally investigate or prosecute any alcohol or drug abuse patient.[facility] HospitalIn the event this information is protected by the Federal Confidentiality of Alcohol and Drug Abuse Patient Records regulations: The Federal rules restrict any use of the information to criminally investigate or prosecute any alcohol or drug abuse patient.[facility] HospitalIn the event this information is protected by the Federal Confidentiality of Alcohol and Drug Abuse Patient Records regulations: The Federal rules restrict any use of the information to criminally investigate or prosecute any alcohol or drug abuse patient.[facility] HospitalIn the event this information is protected by the Federal Confidentiality of Alcohol and Drug Abuse Patient Records regulations: The Federal rules restrict any use of the information to criminally investigate or prosecute any alcohol or drug abuse patient.[facility] HospitalIn the event this information is protected by the Federal Confidentiality of Alcohol and Drug Abuse Patient Records regulations: The Federal rules restrict any use of the information to criminally investigate or prosecute any alcohol or drug abuse patient.[facility] HospitalIn the event this information is protected by the Federal Confidentiality of Alcohol and Drug Abuse Patient Records regulations: The Federal rules restrict any use of the information to criminally investigate or prosecute any alcohol or drug abuse patient.[facility] HospitalIn the event this information is protected by the Federal Confidentiality of Alcohol and Drug Abuse Patient Records regulations: The Federal rules restrict any use of the information to criminally investigate or prosecute any alcohol or drug abuse patient.[facility] HospitalIn the event this information is protected by the Federal Confidentiality of Alcohol and Drug Abuse Patient Records regulations: The Federal rules restrict any use of the information to criminally investigate or prosecute any alcohol or drug abuse patient.[facility] HospitalIn the event this information is protected by the Federal Confidentiality of Alcohol and Drug Abuse Patient Records regulations: The Federal rules restrict any use of the information to criminally investigate or prosecute any alcohol or drug abuse patient.[facility] HospitalIn the event this information is protected by the Federal Confidentiality of Alcohol and Drug Abuse Patient Records regulations: The Federal rules restrict any use of the information to criminally investigate or prosecute any alcohol or drug abuse patient.[facility] HospitalIn the event this information is protected by the Federal Confidentiality of Alcohol and Drug Abuse Patient Records regulations: The Federal rules restrict any use of the information to criminally investigate or prosecute any alcohol or drug abuse patient.[facility] HospitalIn the event this information is protected by the Federal Confidentiality of Alcohol and Drug Abuse Patient Records regulations: The Federal rules restrict any use of the information to criminally investigate or prosecute any alcohol or drug abuse patient.[facility] HospitalIn the event this information is protected by the Federal Confidentiality of Alcohol and Drug Abuse Patient Records regulations: The Federal rules restrict any use of the information to criminally investigate or prosecute any alcohol or drug abuse patient.[facility] HospitalIn the event this information is protected by the Federal Confidentiality of Alcohol and Drug Abuse Patient Records regulations: The Federal rules restrict any use of the information to criminally investigate or prosecute any alcohol or drug abuse patient.[facility] HospitalIn the event this information is protected by the Federal Confidentiality of Alcohol and Drug Abuse Patient Records regulations: The Federal rules restrict any use of the information to criminally investigate or prosecute any alcohol or drug abuse patient.[facility] HospitalIn the event this information is protected by the Federal Confidentiality of Alcohol and Drug Abuse Patient Records regulations: The Federal rules restrict any use of the information to criminally investigate or prosecute any alcohol or drug abuse patient.[facility] HospitalIn the event this information is protected by the Federal Confidentiality of Alcohol and Drug Abuse Patient Records regulations: The Federal rules restrict any use of the information to criminally investigate or prosecute any alcohol or drug abuse patient.[facility] HospitalIn the event this information is protected by the Federal Confidentiality of Alcohol and Drug Abuse Patient Records regulations: The Federal rules restrict any use of the information to criminally investigate or prosecute any alcohol or drug abuse patient.[facility] HospitalIn the event this information is protected by the Federal Confidentiality of Alcohol and Drug Abuse Patient Records regulations: The Federal rules restrict any use of the information to criminally investigate or prosecute any alcohol or drug abuse patient.[facility] Reason for Visit (unrecogniz ed section and content) Reason Comments Established Patient Pembro and follow up Specialty Diagnoses / Procedures Referred By Contelizabeth t Referred To Contact Hematology/Oncology / HEMATOLOGY/ONCOLOGY Diagnoses OV ; TX after Procedures EST PATIENT GrahamSaLamin B [address] [place] [address] Sylvia Mancilla APRN.[employer]ITOR [address] [place] [address] Referral ID Status Reason Start Date Expiration Date V isits Requested Visits Authorized [id number] Authorized 10/25/2021 01/22/2022 99 99 Reason Comments Chemotherapy Treatment keytruda Specialty Diagnoses / Procedures Referred By Contac t Referred To Contact 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) Procedures [place] [address] [place] [address] [facility] [id number] [place] [id number] Referral ID Status Reason Start Date Expiration Date V isits Requested Visits Authorized [id number] Authorized 12/11/2019 04/24/2022 99 99 Reason Comments Refill Request Reason Comments Established Patient Pain Anxiety Reason Comments Chemotherapy Treatment Specialty Diagnoses / Procedures Referred By Fauquier [facility] Referred To Contact 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) [place] [address] [place] [id number] [address] [address] Referral ID Status Reason Start Date Expiration Date V isits Requested Visits Authorized [id number] Authorized 12/11/2019 03/10/2020 1 1 Reason Comments Concrete Block Molder - Other Reason Onset Date Comments Refill Request 05/17/2021 Reason Comments Care Coordination sinus symptoms Reason Onset Date Comments Refill Request 06/06/2021 Reason Onset Date Comments Refill Request 06/15/2021 Reason Onset Date Comments Refill Request 06/30/2021 Specialty Diagnoses / Procedures Referred By [facility] Referred To Contact 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) [place] [address] [place] [address] [facility] [id number] [place] [address] Reason Onset Date Comments Refill Request 2021 Reason Comments LESION, SKIN Reason Comments Care Coordination Pall med referral Reason Onset Date Comments Refill Request 08/14/2021 Reason Onset Date Comments Refill Request 08/30/2021 Reason Onset Date Comments Refill Request 09/02/2021 Reason Onset Date Comments Refill Request 09/03/2021 Reason Comments Derm Problem Hs lesions Reason Onset Date Comments Refill Request 09/11/2021 Reason Comments Concrete Block Molder - ED Follow Up Reason Onset Date Comments Refill Request 10/04/2021 Reason Onset Date Comments Refill Request 10/16/2021 Reason Comments Established Patient Pembro infusion Specialty Diagnoses / Procedures Referred By Contac t Referred To Contact Hematology/Oncology / HEMATOLOGY/ONCOLOGY Diagnoses OV ; TX after Procedures EST PATIENT Lamin Stevenson [address] [place] [address] Sylvia Mancilla APRN.RECOVERY AUDITOR [address] [place] [address] Reason Comments Follow Up Pain Insomnia Reason Onset Date Comments Refill Request 10/31/2021 Reason Onset Date Comments Refill Request 11/07/2021 Reason Comments Orders Reason Comments Established Patient Specialty Diagnoses / Procedures Referred By Contac t Referred To Contact 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) Procedures [place] [address] [place] [address] [facility] [place] [address] [place] [address] Referral ID Status Reason Start Date Expiration Date V isits Requested Visits Authorized [id number] Pending Review 12/11/2019 04/24/2022 99 99 Reason Onset Date Comments Refill Request 12/04/2021 Reason Comments Acne Specialty Diagnoses / Procedures Referred By Contac t Referred To Contact Dermatology / DERMATOLOGY Diagnoses ACNE Procedures EST DPSI GENERAL Self Nova Bridges, LORY.RECOVERY AUDITOR [address] [place] [address] Referral ID Status Reason Start Date Expiration Date V isits Requested Visits Authorized [id number] Closed Financial Clearance Required - OON Payor [...] petscan move 02/28 to 03/07 1130 w/ Mary and infusion after Procedures [place] [address] [place] [address] [place] [address] [place] [address] Referral ID Status Reason Start Date Expiration Date Visits Re quested Visits Authorized [id number] Closed 02/27/2022 03/30/2022 1 1 Reason Onset Date Comments Refill Request 03/15/2022 Reason Comments Cancer Reason Comments Patient Education Reason Comments Chemotherapy Treatment Keytruda Referral ID Status Reason Start Date Expiration Date V isits Requested Visits Authorized [id number] Authorized 12/11/2019 10/26/2022 99 99 Reason Onset [...] MIN EST PATIENT Jose Vail MD [address] [facility] [place] [address] [place] [address] [place] [address] Referral ID Status Reason Start Date Expiration Date V isits Requested Visits Authorized [id number] Authorized 05/23/2022 05/24/2023 99 99 Reason Onset [...] MIN EST PATIENT Jose Vail MD [address] [facility] [place] [address] [place] [address] [place] [address] Reason Comments Dyspnea On Exertion Simple chronic [...] RI EST PULM GENERAL Jose Vail MD [address] [facility] [place] [address] Ella Chan, LORY.[facility] [address] [place] [address] Referral ID Status Reason Start Date Expiration Date Visits Re quested Visits Authorized [id number] Closed 06/26/2022 06/27/2023 1 1 Reason Comments [...] RI EST PULM GENERAL Jose Vail MD [address] [place] [address] Ella Chan, LORY.RECOVERY AUDITOR [address] [place] [address] Referral ID Status Reason Start Date Expiration Date V isits Requested Visits Authorized [id number] Authorized 05/22/2022 05/23/2023 99 99 Specialty Diagnoses / Procedures Referred By Valerieac t Referred To Contact CT IMAGING Diagnoses Acute cough Procedures CT CHEST WO IVCON DIAGNOSTIC COMPUTED TOMOGRAPHY THORAX W/[place] [address] [place] [address] Ct Imaging Referral ID Status Reason Start Date Expiration Date V isits Requested Visits Authorized [id number] Closed Auto-Generate d Referral 05/22/2022 06/21/2023 1 [...] Hodgkins lymphomaPT REQ BRM Procedures OFFICE/OUTPATIENT [facility] MDM 60-74 MINUTES NEW PATIENT MED ONC Jose Vail MD [address] [place] [address] [place] [address] Alexsander Ledezma MD [address] [place] [address] [place] [address] Referral ID Status Reason Start Date Expiration Date Visits Re quested Visits Authorized [id number] Closed 12/26/2022 12/27/2023 1 1 Reason Comments Results Reason Onset Date Comments Refill Request 01/06/2023 Reason Comments Spirometry Specialty Diagnoses / Procedures [facility] Diagnoses Chronic cough Procedures LUNG DIFFUSION CAPACITY (DLCO) DIFFUSING CAPACITY Ella Chan, MARINE ENGINE MACHINIST APPRENTICE.RECOVERY AUDITOR [address] [place] [address] [facility] [place] [address] [place] [address] Referral ID Status Reason Start Date Expiration Date V isits Requested Visits Authorized [id number] Closed Auto-Generate d Referral 01/08/2023 02/17/2023 1 1 Specialty Diagnoses / Procedures Referred By Contac t Referred To Contact [facility] Diagnoses Bronchitis Procedures NITRIC OXIDE, EXHALED NITRIC OXIDE GAS DETERMINATION Ella Chan, MARINE ENGINE MACHINIST APPRENTICE.RECOVERY AUDITOR [address] [place] [address] [facility] [place] [facility] [place] [address] Referral ID Status Reason Start Date Expiration Date V isits Requested Visits Authorized [id number] Closed Auto-Generate d Referral 01/08/2023 02/17/2023 1 [...] MIN RI EST PULM GENERAL Ella Chan, MARINE ENGINE MACHINIST APPRENTICE.RECOVERY AUDITOR [address] [place] [address] Kylie Nunes MARINE ENGINE MACHINIST APPRENTICE.RECOVERY AUDITOR [address] [place] [address] Referral ID Status Reason Start Date Expiration Date Visits Re quested Visits Authorized [id number] Closed 03/12/2023 02/18/2024 1 1 Specialty Diagnoses / Procedures Referred By Contelizabeth t Referred To Contact [facility] Diagnoses Bronchitis, not specified as acute or chronic Procedures SPIROMETRY - BASELINE AND POST DILATOR BRNCDILAT RSPSE SPMTRY PRE&POST-BRNCDILAT ADMN Ella Chan, MARINE ENGINE MACHINIST APPRENTICE.RECOVERY AUDITOR [address] [place] [address] [facility] [place] [address] [facility] [place] [address] Referral ID Status Reason Start Date Expiration Date V isits Requested Visits Authorized [id number] Closed Auto-Generate d Referral 02/14/2023 03/15/2024 1 1 Reason Comments Med Change Request Reason Comments Lab Orders Care Teams (unrecognized sec tion and content) Technical Support Representative Relationship Specialty Start Date End Date Jose Vail MD PCP - General Internal Medicine 05/07/16 [place] [address] [place] [address] Consulting Hematology/Oncology 01/28/12 [place] [address] [place] [address] Specialty Concrete Block Molder Hematology/Oncology 11/09/19 [place] [address] [place] [address] Hematology/Oncology 03/30/21 Technical Support Representative Relationship Specialty Start Date End Date Jose Vail MD PCP - General Internal Medicine 05/07/16 [place] [address] [place] [address] Consulting Hematology/Oncology 01/28/12 [place] [address] [place] [address] Specialty Concrete Block Molder Hematology/Oncology 11/09/19 [place] [address] [place] [address] Hematology/Oncology 03/30/21 Technical Support Representative Relationship Specialty Start Date End Date Jose Vail MD PCP - General Internal Medicine 05/07/16 Cyn [place]ires [place] [id number] [place] [address] Consulting Hematology/Oncology 01/28/12 Marilyn [place] [address] [place] [address] Specialty Concrete Block Molder Hematology/Oncology 11/09/19 Cyn Ramires [place] [id number] [place] [address] Hematology/Oncology 03/30/21 Technical Support Representative Relationship Specialty Start Date End Date Jose Vail MD PCP - General Internal Medicine 05/07/16 Cyn Ramires [place] [id number] [place] [address] Consulting Hematology/Oncology 01/28/12 Marilyn Hughes RN [address] [place] [address] Specialty Concrete Block Molder Hematology/Oncology 11/09/19 Cyn [place]ires [place] [id number] [place] [address] Hematology/Oncology 03/30/21 Technical Support Representative Relationship Specialty Start Date End Date Jose Vail MD PCP - General Internal Medicine 05/07/16 Cyn Ramires [place] [id number] [place] [address] Consulting Hematology/Oncology 01/28/12 [place] [address] [place] [address] Specialty Concrete Block Molder Hematology/Oncology 11/09/19 Cyn Ramires [place] [id number] [place] [address] Hematology/Oncology 03/30/21 Technical Support Representative Relationship Specialty Start Date End Date Jose Vail MD PCP - General Internal Medicine 05/07/16 Cyn Ram[place] [id number] [place] [address] Consulting Hematology/Oncology 01/28/12 Marilyn Hughes RN [address] [place] [address] Specialty Concrete Block Molder Hematology/Oncology 11/09/19 [place] [address] [place] [address] Hematology/Oncology 03/30/21 Technical Support Representative Relationship Specialty Start Date End Date Jose Vail MD PCP - General Internal Medicine 05/07/16 Cyn Ramires [place] [id number] [place] [address] Consulting Hematology/Oncology 01/28/12 Marilyn Hughes RN [address] [place] [address] Specialty Concrete Block Molder Hematology/Oncology 11/09/19 [place] [address] [place] [address] Hematology/Oncology 03/30/21 Kristina Pete, MAE Specialty Concrete Block Molder HOSPICE & PALLIATIVE MEDICINE 05/22/21 Technical Support Representative Relationship Specialty Start Date End Date Jose Vail MD PCP - General Internal Medicine 05/07/16 [place] [address] [place] [address] Consulting Hematology/Oncology 01/28/12 Marilyn Hughes, MAE [address] [place] [address] Specialty Concrete Block Molder Hematology/Oncology 11/09/19 [place] [address] Hematology/Oncology 03/30/21 Kristina Pete, MAE Specialty Concrete Block Molder HOSPICE & PALLIATIVE MEDICINE 05/22/21 Technical Support Representative Relationship Specialty Start Date End Date Jose Vail MD PCP - General Internal Medicine 05/07/16 [place] [address] [place] [address] Consulting Hematology/Oncology 01/28/12 Marilyn Hughes RN [phone] [place] [address] Specialty Concrete Block Molder Hematology/Oncology 11/09/19 [place] [address] Hematology/Oncology 03/30/21 Kristina Pete, MAE Specialty Concrete Block Molder HOSPICE & PALLIATIVE MEDICINE 05/22/21 Technical Support Representative Relationship Specialty Start Date End Date Jose Vail MD PCP - General Internal Medicine 05/07/16 [place] [address] [place] [address] Consulting Hematology/Oncology 01/28/12 [place] [address] [place] [address] Specialty Concrete Block Molder Hematology/Oncology 11/09/19 [place] [address] [place] [address] Hematology/Oncology 03/30/21 Kristina Pete, RN Specialty Concrete Block Molder HOSPICE & PALLIATIVE MEDICINE 05/22/21 Technical Support Representative Relationship Specialty Start Date End Date Jose Vail MD PCP - General Internal Medicine 05/07/16 [place] [address] [place] [address] Consulting Hematology/Oncology 01/28/12 Marilyn Hughes, MAE [address] [place] [address] Specialty Concrete Block Molder Hematology/Oncology 11/09/19 [place] [address] [place] [address] Hematology/Oncology 03/30/21 Kristina Pete, RN Specialty Concrete Block Molder HOSPICE & PALLIATIVE MEDICINE 05/22/21 Juan Francisco Hutchinson, MARINE ENGINE MACHINIST APPRENTICE.RECOVERY AUDITOR [address] [place], [place] 014[address]31 Palliative Medicine Provider HOSPICE & PALLIATIVE MEDICINE 06/28/21 Technical Support Representative Relationship Specialty Start Date End Date Jose Vail MD PCP - General Internal Medicine 05/07/16 [place] [address] [place] [address] Consulting Hematology/Oncology 01/28/12 [place] [address] [place] [address] Specialty Concrete Block Molder Hematology/Oncology 11/09/19 [place] [address] [place] [address] Hematology/Oncology 03/30/21 Kristina Pete, RN Specialty Concrete Block Molder HOSPICE & PALLIATIVE MEDICINE 05/22/21 Juan Francisco Hutchinson, MARINE ENGINE MACHINIST APPRENTICE.RECOVERY AUDITOR [address] [place] [address] Palliative Medicine Provider HOSPICE & PALLIATIVE MEDICINE 06/28/21 Technical Support Representative Relationship Specialty Start Date End Date Jose Vail MD PCP - General Internal Medicine 05/07/16 [place] [address] [place] [address] Consulting Hematology/Oncology 01/28/12 [place] [address] [place] [address] Specialty Concrete Block Molder Hematology/Oncology 11/09/19 [place] [address] [place] [address] Hematology/Oncology 03/30/21 Kristina Pete, MAE Specialty Concrete Block Molder HOSPICE & PALLIATIVE MEDICINE 05/22/21 Juan Francisco Hutchinson, MARINE ENGINE MACHINIST APPRENTICE.RECOVERY AUDITOR [address] [place] [address] Palliative Medicine Provider HOSPICE & PALLIATIVE MEDICINE 06/28/21 Technical Support Representative Relationship Specialty Start Date End Date Jose Vail MD PCP - General Internal Medicine 05/07/16 [place] [address] [place] [address] Consulting Hematology/Oncology 01/28/12 Marilyn Hughes RN [address] [place] [address] Specialty Concrete Block Molder Hematology/Oncology 11/09/19 [place] [address] [place] [address] Hematology/Oncology 03/30/21 Kristina Pete, RN Specialty Concrete Block Molder HOSPICE & PALLIATIVE MEDICINE 05/22/21 Juan Francisco Hutchinson, MARINE ENGINE MACHINIST APPRENTICE.RECOVERY AUDITOR [address] [place] [address] Palliative Medicine Provider HOSPICE & PALLIATIVE MEDICINE 06/28/21 Technical Support Representative Relationship Specialty Start Date End Date Jose Vail MD PCP - General Internal Medicine 05/07/16 [place] [address] [place] [address] Consulting Hematology/Oncology 01/28/12 Marilyn Hughes RN [address] [place] [address] Specialty Concrete Block Molder Hematology/Oncology 11/09/19 [place] [address] [place] [address] Hematology/Oncology 03/30/21 Kristina Pete, MAE Specialty Concrete Block Molder HOSPICE & PALLIATIVE MEDICINE 05/22/21 Juan Francisco Hutchinson, MARINE ENGINE MACHINIST APPRENTICE.RECOVERY AUDITOR [address] [place], [place] 10[address]31 Palliative Medicine Provider HOSPICE & PALLIATIVE MEDICINE 06/28/21 Technical Support Representative Relationship Specialty Start Date End Date Jose Vail MD PCP - General Internal Medicine 05/07/16 [place] [address] [place] [address] Consulting Hematology/Oncology 01/28/12 [place] [address] [place] [address] Specialty Concrete Block Molder Hematology/Oncology 11/09/19 [place] [address] [place] [address] Hematology/Oncology 03/30/21 Kristina Pete, MAE Specialty Concrete Block Molder HOSPICE & PALLIATIVE MEDICINE 05/22/21 Juan Francisco Hutchinson, MARINE ENGINE MACHINIST APPRENTICE.RECOVERY AUDITOR [address] [place] [address] Palliative Medicine Provider HOSPICE & PALLIATIVE MEDICINE 06/28/21 Technical Support Representative Relationship Specialty Start Date End Date Jose Vail MD PCP - General Internal Medicine 05/07/16 [place] [address] [place] [address] Consulting Hematology/Oncology 01/28/12 [place] [address] [place] [address] Specialty Concrete Block Molder Hematology/Oncology 11/09/19 [place] [address] [place] [address] Hematology/Oncology 03/30/21 Kristina Pete, RN Specialty Concrete Block Molder HOSPICE & PALLIATIVE MEDICINE 05/22/21 Juan Francisco Hutchinson, MARINE ENGINE MACHINIST APPRENTICE.RECOVERY AUDITOR [address] [place] [address] Palliative Medicine Provider HOSPICE & PALLIATIVE MEDICINE 06/28/21 Technical Support Representative Relationship Specialty Start Date End Date Jose Vail MD PCP - General Internal Medicine 05/07/16 Cyn [place]ires [place] [id number] [place] [address] Consulting Hematology/Oncology 01/28/12 Marilyn Hughes, MAE [address] [place] [address] Specialty Concrete Block Molder Hematology/Oncology 11/09/19 Cyn [place] [id number] [place] [address] Hematology/Oncology 03/30/21 Kristina Pete, MAE Specialty Concrete Block Molder HOSPICE & PALLIATIVE MEDICINE 05/22/21 Juan Francisco Hutchinson, MARINE ENGINE MACHINIST APPRENTICE.RECOVERY AUDITOR [address] [place] [address] Palliative Medicine Provider HOSPICE & PALLIATIVE MEDICINE 06/28/21 Technical Support Representative Relationship Specialty Start Date End Date Jose Vail MD PCP - General Internal Medicine 05/07/16 [place] [address] [place] [address] Consulting Hematology/Oncology 01/28/12 Marilyn Hughes, RN [phone] [place] [address] Specialty Concrete Block Molder Hematology/Oncology 11/09/19 [place] [address] [place] [address] Hematology/Oncology 03/30/21 Kristina Pete, RN Specialty Concrete Block Molder HOSPICE & PALLIATIVE MEDICINE 05/22/21 Juan Francisco Hutchinson, MARINE ENGINE MACHINIST APPRENTICE.RECOVERY AUDITOR [address] [place] [address] Palliative Medicine Provider HOSPICE & PALLIATIVE MEDICINE 06/28/21 Technical Support Representative Relationship Specialty Start Date End Date Jose Vail MD PCP - General Internal Medicine 05/07/16 [place] [address] [place] [address] Consulting Hematology/Oncology 01/28/12 Mar[place]n [place], MAE [address] [place] [address] Specialty Concrete Block Molder Hematology/Oncology 11/09/19 [place] [address] [place] [address] Hematology/Oncology 03/30/21 Kristina Pete, MAE Specialty Concrete Block Molder HOSPICE & PALLIATIVE MEDICINE 05/22/21 Juan Francisco Hutchinson, MARINE ENGINE MACHINIST APPRENTICE.RECOVERY AUDITOR [address] [place] [address] Palliative Medicine Provider HOSPICE & PALLIATIVE MEDICINE 06/28/21 Technical Support Representative Relationship Specialty Start Date End Date Jose Vail MD PCP - General Internal Medicine 05/07/16 [place] [address] [place] [address] Consulting Hematology/Oncology 01/28/12 [place]E [address] [place] [address] Specialty Concrete Block Molder Hematology/Oncology 11/09/19 [place] [address] [place] [address] Hematology/Oncology 03/30/21 Kristina Pete, RN Specialty Concrete Block Molder HOSPICE & PALLIATIVE MEDICINE 05/22/21 Juan Francisco Hutchinson, MARINE ENGINE MACHINIST APPRENTICE.RECOVERY AUDITOR [address] [place] [address] Palliative Medicine Provider HOSPICE & PALLIATIVE MEDICINE 06/28/21 Technical Support Representative Relationship Specialty Start Date End Date Jose Vail MD PCP - General Internal Medicine 05/07/16 [place] [address] [place] [address] Consulting Hematology/Oncology 01/28/12 [place] [address] [place] [address] Specialty Concrete Block Molder Hematology/Oncology 11/09/19 [place] [address] [place] [address] Hematology/Oncology 03/30/21 Kristina Pete, RN Specialty Concrete Block Molder HOSPICE & PALLIATIVE MEDICINE 05/22/21 Juan Francisco Hutchinson, MARINE ENGINE MACHINIST APPRENTICE.RECOVERY AUDITOR [address] [place] [address] Palliative Medicine Provider HOSPICE & PALLIATIVE MEDICINE 06/28/21 Technical Support Representative Relationship Specialty Start Date End Date Jose Vail MD PCP - General Internal Medicine 05/07/16 [place] [address] [place] [address] Consulting Hematology/Oncology 01/28/12 [place] [address] [place] [address] Specialty Concrete Block Molder Hematology/Oncology 11/09/19 [place] [address] [place] [address] Hematology/Oncology 03/30/21 Kristina Pete, RN Specialty Concrete Block Molder HOSPICE & PALLIATIVE MEDICINE 05/22/21 Juan Francisco Hutchinson, MARINE ENGINE MACHINIST APPRENTICE.RECOVERY AUDITOR [address] [place] [address] Palliative Medicine Provider HOSPICE & PALLIATIVE MEDICINE 06/28/21 Technical Support Representative Relationship Specialty Start Date End Date Jose Vail MD PCP - General Internal Medicine 05/07/16 [place] [address] [place] [address] Consulting Hematology/Oncology 01/28/12 [place] [address] [place] [address] Specialty Concrete Block Molder Hematology/Oncology 11/09/19 [place] [address] [place] [address] Hematology/Oncology 03/30/21 Kristina Pete, MAE Specialty Concrete Block Molder HOSPICE & PALLIATIVE MEDICINE 05/22/21 Juan Francisco Hutchinson, MARINE ENGINE MACHINIST APPRENTICE.RECOVERY AUDITOR [address] [place] [address] Palliative Medicine Provider HOSPICE & PALLIATIVE MEDICINE 06/28/21 Technical Support Representative Relationship Specialty Start Date End Date Jose Vail MD PCP - General Internal Medicine 05/07/16 [place] [address] [place] [address] Consulting Hematology/Oncology 01/28/12 Marilyn Hughes RN [address] [place] [address] Specialty Concrete Block Molder Hematology/Oncology 11/09/19 [place] [address] [place] [address] Hematology/Oncology 03/30/21 Kristina Pete, MAE Specialty Concrete Block Molder HOSPICE & PALLIATIVE MEDICINE 05/22/21 Juan Francisco Hutchinson, MARINE ENGINE MACHINIST APPRENTICE.RECOVERY AUDITOR [address] [place] [address] Palliative Medicine Provider HOSPICE & PALLIATIVE MEDICINE 06/28/21 Technical Support Representative Relationship Specialty Start Date End Date Jose Vail MD PCP - General Internal Medicine 05/07/16 [place] [address] [place] [address] Consulting Hematology/Oncology 01/28/12 Marilyn Hughes RN [address] [place] [address] Specialty Concrete Block Molder Hematology/Oncology 11/09/19 [place] [address] [place] [address] Hematology/Oncology 03/30/21 Kristina Pete, MAE Specialty Concrete Block Molder HOSPICE & PALLIATIVE MEDICINE 05/22/21 Juan Francisco Hutchinson, MARINE ENGINE MACHINIST APPRENTICE.RECOVERY AUDITOR [address] [facility] [place] [address] Palliative Medicine Provider HOSPICE & PALLIATIVE MEDICINE 06/28/21 Technical Support Representative Relationship Specialty Start Date End Date Jose Vail MD PCP - General Internal Medicine 05/07/16 [place] [address] [place] [address] Consulting Hematology/Oncology 01/28/12 [place] [address] [place] [address] Specialty Concrete Block Molder Hematology/Oncology 11/09/19 [place] [address] [place] [address] Hematology/Oncology 03/30/21 Kristina Pete, MAE Specialty Concrete Block Molder HOSPICE & PALLIATIVE MEDICINE 05/22/21 Juan Francisco Hutchinson, MARINE ENGINE MACHINIST APPRENTICE.RECOVERY AUDITOR [address] [place] [address] Palliative Medicine Provider HOSPICE & PALLIATIVE MEDICINE 06/28/21 Technical Support Representative Relationship Specialty Start Date End Date Jose Vail MD PCP - General Internal Medicine 05/07/16 [place] [address] [place] [address] Consulting Hematology/Oncology 01/28/12 [place]E [address] [place] [address] Specialty Concrete Block Molder Hematology/Oncology 11/09/19 [place] [address] [place] [address] Hematology/Oncology 03/30/21 Kristina Pete, MAE Specialty Concrete Block [facility] 05/22/21 Juan Francisco Hutchinson, MARINE ENGINE MACHINIST APPRENTICE.RECOVERY AUDITOR [address] [place] [address] Palliative Medicine Provider HOSPICE & PALLIATIVE MEDICINE 06/28/21 Kylie Mosher, RN Specialty [employer]crete Block Molder HOSPICE & PALLIATIVE MEDICINE 09/27/21 Technical Support Representative Relationship Specialty Start Date End Date Jose Vail MD PCP - General Internal Medicine 05/07/16 [place] [address] [place] [address] Consulting Hematology/Oncology 01/28/12 [place] [address] [place] [address] Specialty Concrete Block Molder Hematology/Oncology 11/09/19 [place] [address] [place] [address] Hematology/Oncology 03/30/21 Kristina Pete, MAE Specialty Concrete Block Molder HOSPICE & PALLIATIVE MEDICINE 05/22/21 Juan Francisco Hutchinson, MARINE ENGINE MACHINIST APPRENTICE.RECOVERY AUDITOR [address] [place] [address] Palliative Medicine Provider HOSPICE & PALLIATIVE MEDICINE 06/28/21 Kylie Mosher, RN Specialty Concrete Block Molder HOSPICE & PALLIATIVE MEDICINE 09/27/21 Technical Support Representative Relationship Specialty Start Date End Date Jose Vail MD PCP - General Internal Medicine 05/07/16 [place] [address] [place] [address] Consulting Hematology/Oncology 01/28/12 [place]E [address] [place] [address] Specialty Concrete Block Molder Hematology/Oncology 11/09/19 [place] [address] [place] [address] Hematology/Oncology 03/30/21 Kristina Pete, RN Specialty Concrete Block Molder HOSPICE & PALLIATIVE MEDICINE 05/22/21 Juan Francisco Hutchinson, MARINE ENGINE MACHINIST APPRENTICE.RECOVERY AUDITOR [address] [place] [address] Palliative Medicine Provider HOSPICE & PALLIATIVE MEDICINE 06/28/21 Kylie Mosher, RN Specialty Concrete Block Molder HOSPICE & PALLIATIVE MEDICINE 09/27/21 Technical Support Representative Relationship Specialty Start Date End Date Jose Vail MD PCP - General Internal Medicine 05/07/16 [place] [address] [place] [address] Consulting Hematology/Oncology 01/28/12 Mar[place] Hughes, MAE [address] [place] [address] Specialty Concrete Block Molder Hematology/Oncology 11/09/19 [place] [address] [place] [address] Hematology/Oncology 03/30/21 Kristina Pete, RN Specialty Concrete Block Molder HOSPICE & PALLIATIVE MEDICINE 05/22/21 Juan Francisco Hutchinson, MARINE ENGINE MACHINIST APPRENTICE.RECOVERY AUDITOR [address] [place] [address] Palliative Medicine Provider HOSPICE & PALLIATIVE MEDICINE 06/28/21 Kylie Mosher, RN Specialty Concrete Block Molder HOSPICE & PALLIATIVE MEDICINE 09/27/21 Technical Support Representative Relationship Specialty Start Date End Date Jose Vail MD PCP - General Internal Medicine 05/07/16 [place] [address] [place] [address] Consulting Hematology/Oncology 01/28/12 [place] [address] [place] [address] Specialty Concrete Block Molder Hematology/Oncology 11/09/19 [place] [address] [place] [address] Hematology/Oncology 03/30/21 Kristina Pete, MAE Specialty Concrete Block Molder HOSPICE & PALLIATIVE MEDICINE 05/22/21 Juan Francisco Hutchinson, MARINE ENGINE MACHINIST APPRENTICE.RECOVERY AUDITOR [address] [place] [address] Palliative Medicine Provider HOSPICE & PALLIATIVE MEDICINE 06/28/21 Kylie Mosher RN Specialty Concrete Block Molder HOSPICE & PALLIATIVE MEDICINE 09/27/21 Technical Support Representative Relationship Specialty Start Date End Date Jose Vail MD PCP - General Internal Medicine 05/07/16 [place] [address] [place] [address] Consulting Hematology/Oncology 01/28/12 [place] [address] [place] [address] Specialty Concrete Block Molder Hematology/Oncology 11/09/19 [place] [address] [place] [address] Hematology/Oncology 03/30/21 Kristina Pete, MAE Specialty Concrete Block Molder HOSPICE & PALLIATIVE MEDICINE 05/22/21 Juan Francisco Hutchinson, MARINE ENGINE MACHINIST APPRENTICE.RECOVERY AUDITOR [address] [place] [address] Palliative Medicine Provider HOSPICE & PALLIATIVE MEDICINE 06/28/21 Kylie Mosher, RN Specialty Concrete Block Molder HOSPICE & PALLIATIVE MEDICINE 09/27/21 Technical Support Representative Relationship Specialty Start Date End Date Jose Vail MD PCP - General Internal Medicine 05/07/16 [place] [address] [place] [address] Consulting Hematology/Oncology 01/28/12 Marilyn Hughes, RN [address] [place] [address] Specialty Concrete Block Molder Hematology/Oncology 11/09/19 [place] [address] [place] [address] Hematology/Oncology 03/30/21 Kristina Pete, MAE Specialty Concrete Block [employer]older HOSPICE & PALLIATIVE MEDICINE 05/22/21 Juan Francisco Hutchinson, MARINE ENGINE MACHINIST APPRENTICE.RECOVERY AUDITOR [address] [place], [place] [address] Palliative Medicine Provider HOSPICE & PALLIATIVE MEDICINE 06/28/21 Kylie Mosher, RN Specialty Concrete Block Molder HOSPICE & PALLIATIVE MEDICINE 09/27/21 Technical Support Representative Relationship Specialty Start Date End Date Jose Vail MD PCP - General Internal Medicine 05/07/16 [place] [address] [place] [address] Consulting Hematology/Oncology 01/28/12 Marilyn Hughes, [place] [id number] [place] [address] Specialty Concrete Block Molder Hematology/Oncology 11/09/19 [place] [address] [place] [address] Hematology/Oncology 03/30/21 Kristina Pete, RN Specialty Concrete Block Molder HOSPICE & PALLIATIVE MEDICINE 05/22/21 Juan Francisco Hutchinson, MARINE ENGINE MACHINIST APPRENTICE.RECOVERY AUDITOR [address] [place] [address] Palliative Medicine Provider HOSPICE & PALLIATIVE MEDICINE 06/28/21 Kylie Mosher, RN Specialty Concrete Block Molder HOSPICE & PALLIATIVE MEDICINE 09/27/21 Technical Support Representative Relationship Specialty Start Date End Date Jose Vail MD PCP - General Internal Medicine 05/07/16 [place] [address] [place] [address] Consulting Hematology/Oncology 01/28/12 [place]E [address] [place] [address] Specialty Concrete Block Molder Hematology/Oncology 11/09/19 [place] [address] [place] [address] Hematology/Oncology 03/30/21 Kristina Pete, RN Specialty Concrete Block [facility]older HOSPICE & PALLIATIVE MEDICINE 05/22/21 Juan Francisco Hutchinson, MARINE ENGINE MACHINIST APPRENTICE.RECOVERY AUDITOR [address] [place] [address] Palliative Medicine Provider HOSPICE & PALLIATIVE MEDICINE 06/28/21 Kylie Mosher, RN Specialty Concrete Block Molder HOSPICE & PALLIATIVE MEDICINE 09/27/21 Technical Support Representative Relationship Specialty Start Date End Date Jose Vail MD PCP - General Internal Medicine 05/07/16 [place] [address] [place] [address] Consulting Hematology/Oncology 01/28/12 [place] [address] [place] [address] Specialty Concrete Block Molder Hematology/Oncology 11/09/19 [place] [address] [place] [address] Hematology/Oncology 03/30/21 Kristina Pete, RN Specialty Concrete Block [employer]older HOSPICE & PALLIATIVE MEDICINE 05/22/21 Juan Francisco Hutchinson, MARINE ENGINE MACHINIST APPRENTICE.RECOVERY AUDITOR [address] [place] [address] Palliative Medicine Provider HOSPICE & PALLIATIVE MEDICINE 06/28/21 Kylie Mosher RN Specialty Concrete Block Molder HOSPICE & PALLIATIVE MEDICINE 09/27/21 Technical Support Representative Relationship Specialty Start Date End Date Jose Vail MD PCP - General Internal Medicine 05/07/16 [place] [address] [place] [address] Consulting Hematology/Oncology 01/28/12 [place] [address] [place] [address] Specialty Concrete Block Molder Hematology/Oncology 11/09/19 [place] [address] [place] [address] Hematology/Oncology 03/30/21 Kristina Pete, MAE Specialty Concrete Block Molder HOSPICE & PALLIATIVE MEDICINE 05/22/21 Juan Francisco Hutchinson, MARINE ENGINE MACHINIST APPRENTICE.RECOVERY AUDITOR [address] [place] [address] Palliative Medicine Provider HOSPICE & PALLIATIVE MEDICINE 06/28/21 Kylie Mosher RN Specialty Concrete Block Molder HOSPICE & PALLIATIVE MEDICINE 09/27/21 Technical Support Representative Relationship Specialty Start Date End Date Jose Vail MD PCP - General Internal Medicine 05/07/16 [place] [address] [place] [address] Consulting Hematology/Oncology 01/28/12 Marilyn Hughes, RN [phone] [place] [address] Specialty Concrete Block Molder Hematology/Oncology 11/09/19 [place] [address] Hematology/Oncology 03/30/21 Kristina Pete, MAE Specialty Concrete Block Molder HOSPICE & PALLIATIVE MEDICINE 05/22/21 Juan Francisco Hutchinson, MARINE ENGINE MACHINIST APPRENTICE.RECOVERY AUDITOR [address] [place] [address] Palliative Medicine Provider HOSPICE & PALLIATIVE MEDICINE 06/28/21 Kylie Mosher, MAE Specialty Concrete Block Molder HOSPICE & PALLIATIVE MEDICINE 09/27/21 Technical Support Representative Relationship Specialty Start Date End Date Jose Vail MD PCP - General Internal Medicine 05/07/16 [place] [address] Consulting Hematology/Oncology 01/28/12 [place]E [address] [place] [address] Specialty Concrete Block Molder Hematology/Oncology 11/09/19 [place] [address] [place] [address] Hematology/Oncology 03/30/21 Kristina Pete, MAE Specialty Concrete Block Molder HOSPICE & PALLIATIVE MEDICINE 05/22/21 Juan Francisco Hutchinson, MARINE ENGINE MACHINIST APPRENTICE.RECOVERY AUDITOR [address] [place] [address] Palliative Medicine Provider HOSPICE & PALLIATIVE MEDICINE 06/28/21 Kylie Mosher RN Specialty Concrete Block Molder HOSPICE & PALLIATIVE MEDICINE 09/27/21 Technical Support Representative Relationship Specialty Start Date End Date Jose Vail MD PCP - General Internal Medicine 05/07/16 [place] [address] [place] [address] Consulting Hematology/Oncology 01/28/12 [place] [address] [place] [address] Specialty Concrete Block Molder Hematology/Oncology 11/09/19 [place] [address] [place] [address] Hematology/Oncology 03/30/21 Kristina Pete, MAE Specialty Concrete Block Molder HOSPICE & PALLIATIVE MEDICINE 05/22/21 Juan Francisco Hutchinson, MARINE ENGINE MACHINIST APPRENTICE.RECOVERY AUDITOR [address] [place] [address] Palliative Medicine Provider HOSPICE & PALLIATIVE MEDICINE 06/28/21 Kylie Mosher RN Specialty Concrete Block Molder HOSPICE & PALLIATIVE MEDICINE 09/27/21 Technical Support Representative Relationship Specialty Start Date End Date Jose Vail MD PCP - General Internal Medicine 05/07/16 [place] [address] [place] [address] Consulting Hematology/Oncology 01/28/12 [place]E [address] [place] [address] Specialty Concrete Block Molder Hematology/Oncology 11/09/19 [place] [address] [place] [address] Hematology/Oncology 03/30/21 Kristina Pete, RN Specialty Concrete Block Molder HOSPICE & PALLIATIVE MEDICINE 05/22/21 Juan Francisco Hutchinson, MARINE ENGINE MACHINIST APPRENTICE.RECOVERY AUDITOR [address] [place] [address] Palliative Medicine Provider HOSPICE & PALLIATIVE MEDICINE 06/28/21 Kylie Mosher, RN Specialty Concrete Block Molder HOSPICE & PALLIATIVE MEDICINE 09/27/21 Technical Support Representative Relationship Specialty Start Date End Date Jose Vail MD PCP - General Internal Medicine 05/07/16 [place] [address] [place] [address] Consulting Hematology/Oncology 01/28/12 [place] [address] [place] [address] Specialty Concrete Block Molder Hematology/Oncology 11/09/19 [place] [address] [place] [address] Hematology/Oncology 03/30/21 Kristina Pete, RN Specialty Concrete Block Molder HOSPICE & PALLIATIVE MEDICINE 05/22/21 Juan Francisco Hutchinson, MARINE ENGINE MACHINIST APPRENTICE.RECOVERY AUDITOR [address] [place] [address] Palliative Medicine Provider HOSPICE & PALLIATIVE MEDICINE 06/28/21 Kylie Mosher, RN Specialty Concrete Block Molder HOSPICE & PALLIATIVE MEDICINE 09/27/21 Technical Support Representative Relationship Specialty [place] [address] [place] [address] PCP - General Internal Medicine 05/07/16 [place] [address] [place] [address] Consulting Hematology/Oncology 01/28/12 Marilyn Hughes, MAE [address] [place] [address] Specialty Concrete Block Molder Hematology/Oncology 11/09/19 [place] [address] [place] [address] Hematology/Oncology 03/30/21 Kristina Pete, MAE Specialty Concrete Block Molder HOSPICE & PALLIATIVE MEDICINE 05/22/21 Juan Francisco Hutchinson, MARINE ENGINE MACHINIST APPRENTICE.RECOVERY AUDITOR [address] [place] [address] Palliative Medicine Provider HOSPICE & PALLIATIVE MEDICINE 06/28/21 Kylie Mosher RN Specialty Concrete Block Molder HOSPICE & PALLIATIVE MEDICINE 09/27/21 Technical Support Representative Relationship Specialty [place] [address] [place] [address] PCP - General Internal Medicine 05/07/16 [place] [address] [place] [address] Consulting Hematology/Oncology 01/28/12 [place] [address] [place] [address] Specialty Concrete Block Molder Hematology/Oncology 11/09/19 [place] [address] [place] [address] Hematology/Oncology 03/30/21 Kristina Pete, RN Specialty Concrete Block Molder HOSPICE & PALLIATIVE MEDICINE 05/22/21 Juan Francisco Hutchinson, MARINE ENGINE MACHINIST APPRENTICE.RECOVERY AUDITOR [address] [place] [address] Palliative Medicine Provider HOSPICE & PALLIATIVE MEDICINE 06/28/21 Kylie Mosher, RN Specialty Concrete Block Molder HOSPICE & PALLIATIVE MEDICINE 09/27/21 Technical Support Representative Relationship Specialty [place] [address] [place] [address] PCP - General Internal Medicine 05/07/16 [place] [address] [place] [address] Consulting Hematology/Oncology 01/28/12 [place] [address] [place] [address] Specialty Concrete Block Molder Hematology/Oncology 11/09/19 [place] [address] [place] [address] Hematology/Oncology 03/30/21 Kristina Pete, MAE Specialty Concrete Block Molder HOSPICE & PALLIATIVE MEDICINE 05/22/21 Juan Francisco Hutchinson, MARINE ENGINE MACHINIST APPRENTICE.RECOVERY AUDITOR [address] [place] [address] Palliative Medicine Provider HOSPICE & PALLIATIVE MEDICINE 06/28/21 Kylie Mosher, RN Specialty Concrete Block Molder HOSPICE & PALLIATIVE MEDICINE 09/27/21 Technical Support Representative Relationship Specialty [place] [address] [place] [address] PCP - General Internal Medicine 05/07/16 [place] [address] [place] [address] Consulting Hematology/Oncology 01/28/12 [place] [address] [place] [address] Specialty Concrete Block Molder Hematology/Oncology 11/09/19 [place] [address] [place] [address] Hematology/Oncology 03/30/21 Kristina Pete, RN Specialty Concrete Block Molder HOSPICE & PALLIATIVE MEDICINE 05/22/21 Juan Francisco Hutchinson, MARINE ENGINE MACHINIST APPRENTICE.RECOVERY AUDITOR [address] [place] [address] Palliative Medicine Provider HOSPICE & PALLIATIVE MEDICINE 06/28/21 Kylie Mosher, MAE Specialty Concrete Block Molder HOSPICE & PALLIATIVE MEDICINE 09/27/21 Technical Support Representative Relationship Specialty [place] [address] [place] [address] PCP - General Internal Medicine 05/07/16 [place] [address] [place] [address] Consulting Hematology/Oncology 01/28/12 [place] [address] [place] [address] Specialty Concrete Block Molder Hematology/Oncology 11/09/19 [place] [address] [place] [address] Hematology/Oncology 03/30/21 Kristina Pete, RN Specialty Concrete Block Molder HOSPICE & PALLIATIVE MEDICINE 05/22/21 Juan Francisco Hutchinson, MARINE ENGINE MACHINIST APPRENTICE.RECOVERY AUDITOR [address] [place] [address] Palliative Medicine Provider HOSPICE & PALLIATIVE MEDICINE 06/28/21 Kylie Mosher RN Specialty Concrete Block Molder HOSPICE & PALLIATIVE MEDICINE 09/27/21 Technical Support Representative Relationship Specialty [place] [address] [place] [address] PCP - General Internal Medicine 05/07/16 [place] [address] [place] [address] Consulting Hematology/Oncology 01/28/12 Marilyn Hughes, MAE [address] [place] [address] Specialty Concrete Block Molder Hematology/Oncology 11/09/19 [place] [address] [place] [address] Hematology/Oncology 03/30/21 Kristina Pete, MAE Specialty Concrete Block Molder HOSPICE & PALLIATIVE MEDICINE 05/22/21 Juan Francisco Hutchinson, MARINE ENGINE MACHINIST APPRENTICE.RECOVERY AUDITOR [address] [place] [address] Palliative Medicine Provider HOSPICE & PALLIATIVE MEDICINE 06/28/21 Kylie Mosher, MAE Specialty Concrete Block Molder HOSPICE & PALLIATIVE MEDICINE 09/27/21 Technical Support Representative Relationship Specialty [place] [address] [place] [address] PCP - General Internal Medicine 05/07/16 [place] [address] [place] [address] Consulting Hematology/Oncology 01/28/12 Marilyn Hughes, MAE [address] [place] [address] Specialty Concrete Block Molder Hematology/Oncology 11/09/19 [place] [address] [place] [address] Hematology/Oncology 03/30/21 Kristina Pete, MAE Specialty Concrete Block Molder HOSPICE & PALLIATIVE MEDICINE 05/22/21 Juan Francisco Hutchinson, MARINE ENGINE MACHINIST APPRENTICE.RECOVERY AUDITOR [address] [place] [address] Palliative Medicine Provider HOSPICE & PALLIATIVE MEDICINE 06/28/21 Kylie Mosher, RN Specialty Concrete Block Molder HOSPICE & PALLIATIVE MEDICINE 09/27/21 Technical Support Representative Relationship Specialty [place] [address] [place] [address] PCP - General Internal Medicine 05/07/16 [place] [address] [place] [address] Consulting Hematology/Oncology 01/28/12 [place] [address] [place] [address] Specialty Concrete Block Molder Hematology/Oncology 11/09/19 [place] [address] [place] [address] Hematology/Oncology 03/30/21 Kristina Pete, MAE Specialty Concrete Block Molder HOSPICE & PALLIATIVE MEDICINE 05/22/21 Juan Francisco Hutchinson, MARINE ENGINE MACHINIST APPRENTICE.RECOVERY AUDITOR [address] [place] [address] Palliative Medicine Provider HOSPICE & PALLIATIVE MEDICINE 06/28/21 Kylie Mosher, RN Specialty Concrete Block Molder HOSPICE & PALLIATIVE MEDICINE 09/27/21 Technical Support Representative Relationship Specialty [place] [address] [place] [address] PCP - General Internal Medicine 05/07/16 [place] [address] [place] [address] Consulting Hematology/Oncology 01/28/12 [place] [address] [place] [address] Specialty Concrete Block Molder Hematology/Oncology 11/09/19 [place] [address] [place] [address] Hematology/Oncology 03/30/21 Kristina Pete, MAE Specialty Concrete Block Molder HOSPICE & PALLIATIVE MEDICINE 05/22/21 Juan Francisco Hutchinson, MARINE ENGINE MACHINIST APPRENTICE.RECOVERY AUDITOR [address] [place] [address] Palliative Medicine Provider HOSPICE & PALLIATIVE MEDICINE 06/28/21 Kylie Mosher RN Specialty Concrete Block Molder HOSPICE & PALLIATIVE MEDICINE 09/27/21 Technical Support Representative Relationship Specialty [place] [address] [place] [address] PCP - General Internal Medicine 05/07/16 [place] [address] [place] [address] Consulting Hematology/Oncology 01/28/12 [place] [address] [place] [address] Specialty Concrete Block Molder Hematology/Oncology 11/09/19 [place] [address] [place] [address] Hematology/Oncology 03/30/21 Kristina Pete, MAE Specialty Concrete Block Molder HOSPICE & PALLIATIVE MEDICINE 05/22/21 Juan Francisco Hutchinson, MARINE ENGINE MACHINIST APPRENTICE.RECOVERY AUDITOR [address] [facility] [place] [address] Palliative Medicine Provider HOSPICE & PALLIATIVE MEDICINE 06/28/21 Kylie Mosher RN Specialty Concrete Block Molder HOSPICE & PALLIATIVE MEDICINE 09/27/21 Technical Support Representative Relationship Specialty Start Date [place] [address] PCP - General Internal Medicine 05/07/16 [place] [address] [place] [address] Consulting Hematology/Oncology 01/28/12 Marilyn Hughes, RN [phone] [place] [address] Specialty Concrete Block Molder Hematology/Oncology 11/09/19 Cyn [place]ires [place] [address] [place] [address] Hematology/Oncology 03/30/21 Kristina Pete, MAE Specialty Concrete Block Molder HOSPICE & PALLIATIVE MEDICINE 05/22/21 Juan Francisco Hutchinson, MARINE ENGINE MACHINIST APPRENTICE.RECOVERY AUDITOR [address] [place] [address] Palliative Medicine Provider HOSPICE & PALLIATIVE MEDICINE 06/28/21 Kylie Mosher, RN Specialty Concrete Block Molder HOSPICE & PALLIATIVE MEDICINE 09/27/21 Technical Support Representative Relationship Specialty Start Date End [place] [address] PCP - General Internal Medicine 05/07/16 [place] [address] [place] [address] Consulting Hematology/Oncology 01/28/12 Marilyn Hughes RN [address] [place] [address] Specialty Concrete Block Molder Hematology/Oncology 11/09/19 Cyn Ramires [place] [address] [place] [address] Hematology/Oncology 03/30/21 Kristina Pete, RN Specialty Concrete Block Molder HOSPICE & PALLIATIVE MEDICINE 05/22/21 Juan Francisco Hutchinson, MARINE ENGINE MACHINIST APPRENTICE.RECOVERY AUDITOR [address] [place] [address] Palliative Medicine Provider HOSPICE & PALLIATIVE MEDICINE 06/28/21 Kylie Mosher, RN Specialty Concrete Block Molder HOSPICE & PALLIATIVE MEDICINE 09/27/21 Technical Support Representative Relationship Specialty [place] [address] [place] [address] PCP - General Internal Medicine 05/07/16 [place] [address] [place] [address] Consulting Hematology/Oncology 01/28/12 Mar[place] Hughes, MAE [address] [place] [address] Specialty Concrete Block Molder Hematology/Oncology 11/09/19 [place] [address] [place] [address] Hematology/Oncology 03/30/21 Kristina Pete, RN Specialty Concrete Block Molder HOSPICE & PALLIATIVE MEDICINE 05/22/21 Juan Francisco Hutchinson, MARINE ENGINE MACHINIST APPRENTICE.RECOVERY AUDITOR [address] [place] [address] Palliative Medicine Provider HOSPICE & PALLIATIVE MEDICINE 06/28/21 Kylie Mosher, RN Specialty Concrete Block Molder HOSPICE & PALLIATIVE MEDICINE 09/27/21 Technical Support Representative Relationship Specialty [place] [address] [place] [address] PCP - General Internal Medicine 05/07/16 [place] [address] [place] [address] Consulting Hematology/Oncology 01/28/12 [place] [address] [place] [address] Specialty Concrete Block Molder Hematology/Oncology 11/09/19 [place] [address] [place] [address] Hematology/Oncology 03/30/21 Kristina Pete, RN Specialty Concrete Block Molder HOSPICE & PALLIATIVE MEDICINE 05/22/21 Juan Francisco Hutchinson, MARINE ENGINE MACHINIST APPRENTICE.RECOVERY AUDITOR [address] [place] [address] Palliative Medicine Provider HOSPICE & PALLIATIVE MEDICINE 06/28/21 Kylie Mosher RN Specialty Concrete Block Molder HOSPICE & PALLIATIVE MEDICINE 09/27/21 Technical Support Representative Relationship Specialty [place] [address] [place] [address] PCP - General Internal Medicine 05/07/16 [place] [address] [place] [address] Consulting Hematology/Oncology 01/28/12 [place] [address] [place] [address] Specialty Concrete Block Molder Hematology/Oncology 11/09/19 [place] [address] [place] [address] Hematology/Oncology 03/30/21 Kristina Pete, MAE Specialty Concrete Block Molder HOSPICE & PALLIATIVE MEDICINE 05/22/21 Juan Francisco Hutchinson, MARINE ENGINE MACHINIST APPRENTICE.RECOVERY AUDITOR [address] [place] [address] Palliative Medicine Provider HOSPICE & PALLIATIVE MEDICINE 06/28/21 Kylie Mosher RN Specialty Concrete Block Molder HOSPICE & PALLIATIVE MEDICINE 09/27/21 Technical Support Representative Relationship Specialty Start Date [place] [address] PCP - General Internal Medicine 05/07/16 [place] [address] [place] [address] Consulting Hematology/Oncology 01/28/12 Marilyn Hughes, RN [phone] [place] [address] Specialty Concrete Block Molder Hematology/Oncology 11/09/19 [place] [address] [place] [address] Hematology/Oncology 03/30/21 Kristina Pete, MAE Specialty Concrete Block Molder HOSPICE & PALLIATIVE MEDICINE 05/22/21 Juan Francisco Hutchinson, MARINE ENGINE MACHINIST APPRENTICE.RECOVERY AUDITOR [address] [place] [address] Palliative Medicine Provider HOSPICE & PALLIATIVE MEDICINE 06/28/21 Kylie Mosher RN Specialty Concrete Block Molder HOSPICE & PALLIATIVE MEDICINE 09/27/21 Technical Support Representative Relationship Specialty Start Date End Date Jose Vail [place] [address] PCP - General Internal Medicine 05/07/16 [place] [address] [place] [address] Consulting Hematology/Oncology 01/28/12 [place] [address] [place] [address] Specialty Concrete Block Molder Hematology/Oncology 11/09/19 [place] [address] [place] [address] Hematology/Oncology 03/30/21 Kristina Pete, RN Specialty Concrete Block Molder HOSPICE & PALLIATIVE MEDICINE 05/22/21 Juan Francisco Hutchinson, MARINE ENGINE MACHINIST APPRENTICE.RECOVERY AUDITOR [address] [place] [address] Palliative Medicine Provider HOSPICE & PALLIATIVE MEDICINE 06/28/21 Kylie Mosher, RN Specialty Concrete Block Molder HOSPICE & PALLIATIVE MEDICINE 09/27/21 Technical Support Representative Relationship Specialty [place] [address] [place] [address] PCP - General Internal Medicine 05/07/16 [place] [address] [place] [address] Consulting Hematology/Oncology 01/28/12 [place] [address] [place] [address] Hematology/Oncology 03/30/21 Kristina Pete, MAE Specialty Concrete Block Molder HOSPICE & PALLIATIVE MEDICINE 05/22/21 Juan Francisco Hutchinson, MARINE ENGINE MACHINIST APPRENTICE.RECOVERY AUDITOR [address] [place] [address] Palliative Medicine Provider HOSPICE & PALLIATIVE MEDICINE 06/28/21 Kylie Mosher, RN Specialty Concrete Block Molder HOSPICE & PALLIATIVE MEDICINE 09/27/21 Technical Support Representative Relationship Specialty [place] [address] [place] [address] PCP - General Internal Medicine 05/07/16 [place] [address] [place] [address] Consulting Hematology/Oncology 01/28/12 [place] [address] [place] [address] Hematology/Oncology 03/30/21 Kristina Pete, MAE Specialty Concrete Block Molder HOSPICE & PALLIATIVE MEDICINE 05/22/21 Juan Francisco Hutchinson, MARINE ENGINE MACHINIST APPRENTICE.RECOVERY AUDITOR [address] [place] [address] Palliative Medicine Provider HOSPICE & PALLIATIVE MEDICINE 06/28/21 Kylie Mosher, RN Specialty Concrete Block Molder HOSPICE & PALLIATIVE MEDICINE 09/27/21 Technical Support Representative Relationship Specialty [place] [address] [place] [address] PCP - General Internal Medicine 05/07/16 [place] [address] [place] [address] Consulting Hematology/Oncology 01/28/12 [place] [address] [place] [address] Hematology/Oncology 03/30/21 Kristina Pete, MAE Specialty Concrete Block Molder HOSPICE & PALLIATIVE MEDICINE 05/22/21 Juan Francisco Hutchinson, MARINE ENGINE MACHINIST APPRENTICE.RECOVERY AUDITOR [address] [place] [address] Palliative Medicine Provider HOSPICE & PALLIATIVE MEDICINE 06/28/21 Kylie Mosher, RN Specialty Concrete Block Molder HOSPICE & PALLIATIVE MEDICINE 09/27/21 Technical Support Representative Relationship Specialty [place] [address] [place] [address] PCP - General Internal Medicine 05/07/16 [place] [address] [place] [address] Consulting Hematology/Oncology 01/28/12 [place] [address] [facility] [place] [address] Hematology/Oncology 03/30/21 Kristina Pete, RN Specialty Concrete Block Molder HOSPICE & PALLIATIVE MEDICINE 05/22/21 Juan Francisco Hutchinosn, MARINE ENGINE MACHINIST APPRENTICE.RECOVERY AUDITOR [address] [place] [address] Palliative Medicine Provider HOSPICE & PALLIATIVE MEDICINE 06/28/21 Kylie Mosher, RN Specialty Concrete Block Molder HOSPICE & PALLIATIVE MEDICINE 09/27/21 Technical Support Representative Relationship Specialty [place] [address] [place] [address] PCP - General Internal Medicine 05/07/16 [place] [address] [place] [address] Consulting Hematology/Oncology 01/28/12 [place] [address] [place] [address] Hematology/Oncology 03/30/21 Kristina Pete, RN Specialty Concrete Block Molder HOSPICE & PALLIATIVE MEDICINE 05/22/21 Juan Francisco Hutchinson, MARINE ENGINE MACHINIST APPRENTICE.RECOVERY AUDITOR [address] [place] [address] Palliative Medicine Provider HOSPICE & PALLIATIVE MEDICINE 06/28/21 Kylie Mosher, RN Specialty Concrete Block Molder HOSPICE & PALLIATIVE MEDICINE 09/27/21 Technical Support Representative Relationship Specialty [place] [address] [place] [address] PCP - General Internal Medicine 05/07/16 [place] [address] [place] [address] Consulting Hematology/Oncology 01/28/12 [place] [address] [place] [address] Hematology/Oncology 03/30/21 Kristina Pete, RN Specialty Concrete Block Molder HOSPICE & PALLIATIVE MEDICINE 05/22/21 Juan Francisco Hutchinson, MARINE ENGINE MACHINIST APPRENTICE.RECOVERY AUDITOR [address] [place] [address] Palliative Medicine Provider HOSPICE & PALLIATIVE MEDICINE 06/28/21 Kylie Mosher, RN Specialty Concrete Block Molder HOSPICE & PALLIATIVE MEDICINE 09/27/21 Technical Support Representative Relationship Specialty Start Date [place] [address] PCP - General Internal Medicine 05/07/16 [place] [address] [place] [address] Consulting Hematology/Oncology 01/28/12 [place] [address] [place] [address] Hematology/Oncology 03/30/21 Kirstina Pete, RN Specialty Concrete Block Molder HOSPICE & PALLIATIVE MEDICINE 05/22/21 Juan Francisco Hutchinson, MARINE ENGINE MACHINIST APPRENTICE.RECOVERY AUDITOR [address] [place] [address] Palliative Medicine Provider HOSPICE & PALLIATIVE MEDICINE 06/28/21 Kylie Mosher, RN Specialty Concrete Block Molder HOSPICE & PALLIATIVE MEDICINE 09/27/21 Technical Support Representative Relationship Specialty [place] [address] [place] [address] PCP - General Internal Medicine 05/07/16 [place] [address] [place] [address] Consulting Hematology/Oncology 01/28/12 [place] [address] [place] [address] Hematology/Oncology 03/30/21 Kristina Pete, RN Specialty Concrete Block Molder HOSPICE & PALLIATIVE MEDICINE 05/22/21 Juan Francisco Hutchinson, MARINE ENGINE MACHINIST APPRENTICE.RECOVERY AUDITOR [address] [place] [address] Palliative Medicine Provider HOSPICE & PALLIATIVE MEDICINE 06/28/21 Kylie Mosher, RN Specialty Concrete Block Molder HOSPICE & PALLIATIVE MEDICINE 09/27/21 Technical Support Representative Relationship Specialty [place] [address] [place] [address] PCP - General Internal Medicine 05/07/16 [place] [address] [place] [address] Consulting Hematology/Oncology 01/28/12 [place] [address] [place] [address] Hematology/Oncology 03/30/21 Kristina Pete, MAE Specialty Concrete Block Molder HOSPICE & PALLIATIVE MEDICINE 05/22/21 Juan Francisco Hutchinson, MARINE ENGINE MACHINIST APPRENTICE.RECOVERY AUDITOR [address] [place] [address] Palliative Medicine Provider HOSPICE & PALLIATIVE MEDICINE 06/28/21 Kylie Mosher, RN Specialty Concrete Block Molder HOSPICE & PALLIATIVE MEDICINE 09/27/21 Technical Support Representative Relationship Specialty [place] [address] [place] [address] PCP - General Internal Medicine 05/07/16 [place] [address] [place] [address] Consulting Hematology/Oncology 01/28/12 [place] [address] [place] [address] Hematology/Oncology 03/30/21 Kristina Pete, MAE Specialty Concrete Block Molder HOSPICE & PALLIATIVE MEDICINE 05/22/21 Juan Francisco Hutchinson, MARINE ENGINE MACHINIST APPRENTICE.RECOVERY AUDITOR [address] [place] [address] Palliative Medicine Provider HOSPICE & PALLIATIVE MEDICINE 06/28/21 Kylie Mosher, RN Specialty Concrete Block Molder HOSPICE & PALLIATIVE MEDICINE 09/27/21 Technical Support Representative Relationship Specialty [place] [address] [place] [address] PCP - General Internal Medicine 05/07/16 [place] [address] [place] [address] Consulting Hematology/Oncology 01/28/12 [place] [address] [place] [address] Hematology/Oncology 03/30/21 Kristina Pete, MAE Specialty Concrete Block Molder HOSPICE & PALLIATIVE MEDICINE 05/22/21 Juan Francisco Hutchinson, MARINE ENGINE MACHINIST APPRENTICE.RECOVERY AUDITOR [address] [place] [address] Palliative Medicine Provider HOSPICE & PALLIATIVE MEDICINE 06/28/21 Kylie Mosher, RN Specialty Concrete Block Molder HOSPICE & PALLIATIVE MEDICINE 09/27/21 Technical Support Representative Relationship Specialty [place] [address] [place] [address] PCP - General Internal Medicine 05/07/16 [place] [address] [place] [address] Consulting Hematology/Oncology 01/28/12 [place] [address] [place] [address] Hematology/Oncology 03/30/21 Kristina Pete, RN Specialty Concrete Block Molder HOSPICE & PALLIATIVE MEDICINE 05/22/21 Juan Francisco Hutchinson, MARINE ENGINE MACHINIST APPRENTICE.RECOVERY AUDITOR [address] [place] [address] Palliative Medicine Provider HOSPICE & PALLIATIVE MEDICINE 06/28/21 Kylie Mosher, RN Specialty Concrete Block Molder HOSPICE & PALLIATIVE MEDICINE 09/27/21 Technical Support Representative Relationship Specialty [place] [address] [place] [address] PCP - General Internal Medicine 05/07/16 [place] [address] [place] [address] Consulting Hematology/Oncology 01/28/12 [place] [address] [place] [address] Hematology/Oncology 03/30/21 Kristina Pete, MAE Specialty Concrete Block Molder HOSPICE & PALLIATIVE MEDICINE 05/22/21 Juan Francisco Hutchinson, MARINE ENGINE MACHINIST APPRENTICE.RECOVERY AUDITOR [address] [place] [address] Palliative Medicine Provider HOSPICE & PALLIATIVE MEDICINE 06/28/21 Kylie Mosher, RN Specialty Concrete Block Molder HOSPICE & PALLIATIVE MEDICINE 09/27/21 Technical Support Representative Relationship Specialty [place] [address] [place] [address] PCP - General Internal Medicine 05/07/16 [place] [address] [place] [address] Consulting Hematology/Oncology 01/28/12 [place] [address] [place] [address] Hematology/Oncology 03/30/21 Kristina Pete, RN Specialty Concrete Block Molder HOSPICE & PALLIATIVE MEDICINE 05/22/21 Juan Francisco Hutchinson, MARINE ENGINE MACHINIST APPRENTICE.RECOVERY AUDITOR [address] [place] [address] Palliative Medicine Provider HOSPICE & PALLIATIVE MEDICINE 06/28/21 Kylie Mosher, RN Specialty Concrete Block Molder HOSPICE & PALLIATIVE MEDICINE 09/27/21 Technical Support Representative Relationship Specialty [place] [address] [place] [address] PCP - General Internal Medicine 05/07/16 [place] [address] [place] [address] Consulting Hematology/Oncology 01/28/12 [place] [address] [place] [address] Hematology/Oncology 03/30/21 Kristina Pete, MAE Specialty Concrete Block Molder HOSPICE & PALLIATIVE MEDICINE 05/22/21 Juan Francisco Hutchinson, MARINE ENGINE MACHINIST APPRENTICE.RECOVERY AUDITOR [address] [place] [address] Palliative Medicine Provider HOSPICE & PALLIATIVE MEDICINE 06/28/21 Kylie Mosher, RN Specialty Concrete Block Molder HOSPICE & PALLIATIVE MEDICINE 09/27/21 Technical Support Representative Relationship Specialty [place] [address] [place] [address] PCP - General Internal Medicine 05/07/16 [place] [address] [place] [address] Consulting Hematology/Oncology 01/28/12 [place] [address] [place] [address] Hematology/Oncology 03/30/21 Kristina Pete RN Specialty Concrete Block Molder HOSPICE & PALLIATIVE MEDICINE 05/22/21 Juan Francisco Hutchinson, MARINE ENGINE MACHINIST APPRENTICE.RECOVERY AUDITOR [address] [place] [address] Palliative Medicine Provider HOSPICE & PALLIATIVE MEDICINE 06/28/21 Kylie Mosher, RN Specialty Concrete Block Molder HOSPICE & PALLIATIVE MEDICINE 09/27/21 Technical Support Representative Relationship Specialty [place] [address] [place] [address] PCP - General Internal Medicine 05/07/16 [place] [address] [place] [address] Consulting Hematology/Oncology 01/28/12 [place] [address] [place] [address] Hematology/Oncology 03/30/21 Juan Francisco Hutchinson, MARINE ENGINE MACHINIST APPRENTICE.RECOVERY AUDITOR [address] [place] [address] Palliative Medicine Provider HOSPICE & PALLIATIVE MEDICINE 06/28/21 Kylie Mosher, RN Specialty Concrete Block Molder HOSPICE & PALLIATIVE MEDICINE 09/27/21 Technical Support Representative Relationship Specialty [place] [address] [place] [address] PCP - General Internal Medicine 05/07/16 [place] [address] [place] [address] Consulting Hematology/Oncology 01/28/12 [place] [address] [place] [address] Hematology/Oncology 03/30/21 Juan Francisco Hutchinson, MARINE ENGINE MACHINIST APPRENTICE.RECOVERY AUDITOR [address] [place] [address] Palliative Medicine Provider HOSPICE & PALLIATIVE MEDICINE 06/28/21 Kylie Mosher, RN Specialty Concrete Block Molder HOSPICE & PALLIATIVE MEDICINE 09/27/21 Technical Support Representative Relationship Specialty [place] [address] [place] [address] PCP - General Internal Medicine 05/07/16 [place] [address] [place] [address] Consulting Hematology/Oncology 01/28/12 [place] [address] [place] [address] Hematology/Oncology 03/30/21 Juan Francisco Hutchinson, MARINE ENGINE MACHINIST APPRENTICE.RECOVERY AUDITOR [address] [place] [address] Palliative Medicine Provider HOSPICE & PALLIATIVE MEDICINE 06/28/21 Kylie Mosher RN Specialty Concrete Block Molder HOSPICE & PALLIATIVE MEDICINE 09/27/21 Technical Support Representative Relationship Specialty [place] [address] [place] [address] PCP - General Internal Medicine 05/07/16 [place] [address] [place] [address] Consulting Hematology/Oncology 01/28/12 [place] [address] [place] [address] Hematology/Oncology 03/30/21 Juan Francisco Hutchinson, MARINE ENGINE MACHINIST APPRENTICE.RECOVERY AUDITOR [address] [place] [address] Palliative Medicine Provider HOSPICE & PALLIATIVE MEDICINE 06/28/21 Kylie Mosher, RN Specialty Concrete Block Molder HOSPICE & PALLIATIVE MEDICINE 09/27/21 Technical Support Representative Relationship Specialty [place] [address] [place] [id number] PCP - General Internal Medicine 05/07/16 [place] [address] [place] [address] Consulting Hematology/Oncology 01/28/12 [place] [address] [facility] [place] [id number] Hematology/Oncology 03/30/21 Juan Francisco Hutchinson, MARINE ENGINE MACHINIST APPRENTICE.RECOVERY AUDITOR [address] [place] [address] Palliative Medicine Provider HOSPICE & PALLIATIVE MEDICINE 06/28/21 Kylie Mosher, RN Specialty Concrete Block Molder HOSPICE & PALLIATIVE MEDICINE 09/27/21 Technical Support Representative Relationship Specialty [place] [address] [place] [address] PCP - General Internal Medicine 05/07/16 [place] [address] [place] [address] Consulting Hematology/Oncology 01/28/12 [place] [address] [place] [address] Hematology/Oncology 03/30/21 Juan Francisco Hutchinson, MARINE ENGINE MACHINIST APPRENTICE.RECOVERY AUDITOR [address] [place] [address] Palliative Medicine Provider HOSPICE & PALLIATIVE MEDICINE 06/28/21 Kylie Mosher, RN Specialty Concrete Block Molder HOSPICE & PALLIATIVE MEDICINE 09/27/21 Technical Support Representative Relationship Specialty [place] [address] [place] [address] PCP - General Internal Medicine 05/07/16 [place] [address] [place] [address] Consulting Hematology/Oncology 01/28/12 [place] [address] [place] [address] Hematology/Oncology 03/30/21 Juan Francisco Hutchinson, MARINE ENGINE MACHINIST APPRENTICE.RECOVERY AUDITOR [address] [place] [address] Palliative Medicine Provider HOSPICE & PALLIATIVE MEDICINE 06/28/21 Kylie Mosher RN Specialty Concrete Block Molder HOSPICE & PALLIATIVE MEDICINE 09/27/21 Technical Support Representative Relationship Specialty [place] [address] [place] [address] PCP - General Internal Medicine 05/07/16 [place] [address] [place] [address] Consulting Hematology/Oncology 01/28/12 [place] [address] [place] [address] Hematology/Oncology 03/30/21 Juan Francisco Hutchinson, MARINE ENGINE MACHINIST APPRENTICE.RECOVERY AUDITOR [address] [place] [phone] Palliative Medicine Provider HOSPICE & PALLIATIVE MEDICINE 06/28/21 Kylie Mosher, RN Specialty Concrete Block Molder HOSPICE & PALLIATIVE MEDICINE 09/27/21 Technical Support Representative Relationship Specialty [place] [address] [place] [address] PCP - General Internal Medicine 05/07/16 [place] [address] [facility] [place] [address] Consulting Hematology/Oncology 01/28/12 [place] [address] [facility] [place] [address] Hematology/Oncology 03/30/21 Juan Francisco Hutchinson, MARINE ENGINE MACHINIST APPRENTICE.RECOVERY AUDITOR [address] [place] [address] Palliative Medicine Provider HOSPICE & PALLIATIVE MEDICINE 06/28/21 Kylie Mosher, RN Specialty Concrete Block Molder HOSPICE & PALLIATIVE MEDICINE 09/27/21 Technical Support Representative Relationship Specialty [place] [address] [place] [address] PCP - General Internal Medicine 05/07/16 [place] [address] [facility] [place] [address] Consulting Hematology/Oncology 01/28/12 [place] [address] [place] [address] Hematology/Oncology 03/30/21 Kristina Pete, RN Specialty Concrete Block Molder HOSPICE & PALLIATIVE MEDICINE 05/22/21 08/06/22 Juan Francisco Hutchinson, MARINE ENGINE MACHINIST APPRENTICE.RECOVERY AUDITOR [address] [place] [address] Palliative Medicine Provider HOSPICE & PALLIATIVE MEDICINE 06/28/21 Kylie Mosher, MAE Specialty Concrete Block Molder HOSPICE & PALLIATIVE MEDICINE 09/27/21 Technical Support Representative Relationship Specialty [place] [address] [facility] [place] [id number] PCP - General Internal Medicine 05/07/16 [place] [address] [place] [address] Consulting Hematology/Oncology 01/28/12 [place] [address] [facility] [place] [address] Hematology/Oncology 03/30/21 Juan Francisco Hutchinson, MARINE ENGINE MACHINIST APPRENTICE.RECOVERY AUDITOR [address] [place] [address] Palliative Medicine Provider HOSPICE & PALLIATIVE MEDICINE 06/28/21 Kylie Mosher RN Specialty Concrete Block Molder HOSPICE & PALLIATIVE MEDICINE 09/27/21 Technical Support Representative Relationship Specialty [place] [address] [facility] [place] [address] PCP - General Internal Medicine 05/07/16 [place] [address] [place] [address] Consulting Hematology/Oncology 01/28/12 [place] [address] [facility] [place] [address] Hematology/Oncology 03/30/21 Juan Francisco Hutchinson, MARINE ENGINE MACHINIST APPRENTICE.RECOVERY AUDITOR [address] [place] [address] Palliative Medicine Provider HOSPICE & PALLIATIVE MEDICINE 06/28/21 Kylie Mosher RN Specialty Concrete Block Molder HOSPICE & PALLIATIVE MEDICINE 09/27/21 Technical Support Representative Relationship Specialty [place] [address] [facility] [place] [address] PCP - General Internal Medicine 05/07/16 [place] [address] [facility] [place] [address] Consulting Hematology/Oncology 01/28/12 [place] [address] [facility] [place] [address] Hematology/Oncology 03/30/21 Juan Francisco Hutchinson, MARINE ENGINE MACHINIST APPRENTICE.RECOVERY AUDITOR [address] [place] [address] Palliative Medicine Provider HOSPICE & PALLIATIVE MEDICINE 06/28/21 Kylie Mosher RN Specialty Concrete Block Molder HOSPICE & PALLIATIVE MEDICINE 09/27/21 Technical Support Representative Relationship Specialty [place] [address] [place] [address] PCP - General Internal Medicine 05/07/16 [place] [address] [place] [address] Consulting Hematology/Oncology 01/28/12 [place] [address] [place] [address] Hematology/Oncology 03/30/21 Juan Francisco Hutchinson, MARINE ENGINE MACHINIST APPRENTICE.RECOVERY AUDITOR [address] [place] [phone] Palliative Medicine Provider HOSPICE & PALLIATIVE MEDICINE 06/28/21 Kylie Mosher RN Specialty Concrete Block Molder HOSPICE & PALLIATIVE MEDICINE 09/27/21 Technical Support Representative Relationship Specialty [place] [address] [place] [address] PCP - General Internal Medicine 05/07/16 [place] [address] [place] [address] Consulting Hematology/Oncology 01/28/12 [place] [address] [place] [address] Hematology/Oncology 03/30/21 Juan Francisco Hutchinson, MARINE ENGINE MACHINIST APPRENTICE.RECOVERY AUDITOR [address] [place] [address] Palliative Medicine Provider HOSPICE & PALLIATIVE MEDICINE 06/28/21 Kylie Mosher RN Specialty Concrete Block Molder HOSPICE & PALLIATIVE MEDICINE 09/27/21 Technical Support Representative Relationship Specialty [place] [address] [place] [address] PCP - General Internal Medicine 05/07/16 [place] [address] [place] [address] Consulting Hematology/Oncology 01/28/12 [place] [address] [place] [address] Hematology/Oncology 03/30/21 Juan Francisco Hutchinson, MARINE ENGINE MACHINIST APPRENTICE.RECOVERY AUDITOR [address] [place] [address] Palliative Medicine Provider HOSPICE & PALLIATIVE MEDICINE 06/28/21 Kylie Mosher RN Specialty Concrete Block Molder HOSPICE & PALLIATIVE MEDICINE 09/27/21 Technical Support Representative Relationship Specialty [place] [address] [place] [address] PCP - General Internal Medicine 05/07/16 [place] [address] [place] [address] Consulting Hematology/Oncology 01/28/12 [place] [address] [place] [address] Hematology/Oncology 03/30/21 Juan Francisco Hutchinson, MARINE ENGINE MACHINIST APPRENTICE.RECOVERY AUDITOR [address] [place] [address] Palliative Medicine Provider HOSPICE & PALLIATIVE MEDICINE 06/28/21 Kylie Mosher, RN Specialty Concrete Block Molder HOSPICE & PALLIATIVE MEDICINE 09/27/21 Technical Support Representative Relationship Specialty [place] [address] [facility] [place] [address] PCP - General Internal Medicine 05/07/16 [place] [address] [place] [address] Consulting Hematology/Oncology 01/28/12 [place] [address] [facility] [place] [address] Hematology/Oncology 03/30/21 Juan Francisco Hutchinson, MARINE ENGINE MACHINIST APPRENTICE.RECOVERY AUDITOR [address] [place] [address] Palliative Medicine Provider HOSPICE & PALLIATIVE MEDICINE 06/28/21 Kylie Mosher, MAE Specialty Concrete Block Molder HOSPICE & PALLIATIVE MEDICINE 09/27/21 Technical Support Representative Relationship Specialty [place] [address] [place] [address] PCP - General Internal Medicine 05/07/16 [place] [address] [facility] [place] [address] Consulting Hematology/Oncology 01/28/12 [place] [address] [place] [address] Hematology/Oncology 03/30/21 Juan Francisco Hutchinson, MARINE ENGINE MACHINIST APPRENTICE.RECOVERY AUDITOR [address] [place] [address] Palliative Medicine Provider HOSPICE & PALLIATIVE MEDICINE 06/28/21 Kylie Mosher, RN Specialty Concrete Block Molder HOSPICE & PALLIATIVE MEDICINE 09/27/21 Technical Support Representative Relationship Specialty [place] [address] [facility] [place] [address] PCP - General Internal Medicine 05/07/16 [place] [address] [facility] [place] [address] Consulting Hematology/Oncology 01/28/12 [place] [address] [facility] [place] [address] Hematology/Oncology 03/30/21 Juan Francisco Hutchinson, LORY.RECOVERY AUDITOR [address] [place] [phone] Palliative Medicine Provider HOSPICE & PALLIATIVE MEDICINE 06/28/21 Kylie Mosher, RN Specialty Concrete Block Molder HOSPICE & PALLIATIVE MEDICINE 09/27/21 Technical Support Representative Relationship Specialty [place] [address] [facility] [place] [address] PCP - General Internal Medicine 05/07/16 [place] [address] [facility] [place] [address] Consulting Hematology/Oncology 01/28/12 [place] [address] [facility] [place] [address] Hematology/Oncology 03/30/21 Juan Francisco Hutchinson, MARINE ENGINE MACHINIST APPRENTICE.RECOVERY AUDITOR [address] [id number] Palliative Medicine Provider HOSPICE & PALLIATIVE MEDICINE 06/28/21 Kylie Mosher, RN Specialty Concrete Block Molder HOSPICE & PALLIATIVE MEDICINE 09/27/21 Technical Support Representative Relationship Specialty [place] [address] [place] [address] PCP - General Internal Medicine 05/07/16 [place] [address] [place] [address] Consulting Hematology/Oncology 01/28/12 [place] [address] [place] [address] Hematology/Oncology 03/30/21 Juan Francisco Hutchinson, MARINE ENGINE MACHINIST APPRENTICE.RECOVERY AUDITOR [address] [phone] Palliative Medicine Provider HOSPICE & PALLIATIVE MEDICINE 06/28/21 Kylie Mosher, RN Specialty Concrete Block Molder HOSPICE & PALLIATIVE MEDICINE 09/27/21 Technical Support Representative Relationship Specialty [place] [address] [place] [address] PCP - General Internal Medicine 05/07/16 [place] [address] [place] [address] Consulting Hematology/Oncology 01/28/12 [place] [id number] [address] Hematology/Oncology 03/30/21 Juan Francisco Hutchinson, MARINE ENGINE MACHINIST APPRENTICE.RECOVERY AUDITOR [address] [phone] Palliative Medicine Provider HOSPICE & PALLIATIVE MEDICINE 06/28/21 Kylie Mosher, RN Specialty Concrete Block Molder HOSPICE & PALLIATIVE MEDICINE 09/27/21 Team Status: Active Member Role Status Dates Jose Vail MD Primary Care Provider Active Team Status: Inactive Member Role Status Dates Jose Vail MD Primary Care Provider Active Keke Bright NP-C Attending Provider Active Technical Support Representative Relationship Specialty Start Date End Date Jose Vail MD PCP - General Internal Medicine 05/07/16 Juan Francisco Hutchinson, MARINE ENGINE MACHINIST APPRENTICE.RECOVERY AUDITOR [address] [phone] Palliative Medicine Provider Hospice & Palliative Medicine 06/28/21 Kylie Mosher, RN Specialty Concrete Block Molder Hospice & Palliative Medicine 09/27/21 Alexsander Ledezma MD [address] [place] [address] [place] [address] Physician Hematology 02/08/23 Linette Skinner, MARINE ENGINE MACHINIST APPRENTICE.RECOVERY AUDITOR [address] [place] [address] Referring Nurse Practitioner 02/26/23 Linette Skinner, MARINE ENGINE MACHINIST APPRENTICE.RECOVERY AUDITOR [address] [place] [address] Referring Nurse Practitioner 03/06/23 Fabiana Johnson LSW Journalism Internship 03/08/23 Technical Support Representative Relationship Specialty Start Date End Date Jose Vail MD PCP - General Internal Medicine 05/07/16 Juan Francisco Hutchinson, MARINE ENGINE MACHINIST APPRENTICE.RECOVERY AUDITOR [address] [place] [address] Palliative Medicine Provider Hospice & Palliative Medicine 06/28/21 Kylie Mosher, RN Specialty Concrete Block Molder Hospice & Palliative Medicine 09/27/21 Alexsander Ledezma MD [address] [facility] [address] Physician Hematology 02/08/23 Linette Skinner, MARINE ENGINE MACHINIST APPRENTICE.RECOVERY AUDITOR [address] [place] [address] Referring Nurse Practitioner 02/26/23 Linette Skinner, MARINE ENGINE MACHINIST APPRENTICE.RECOVERY AUDITOR [address] [place] [address] Referring Nurse Practitioner 03/06/23 Fabiana Johnson LSW Journalism Internship 03/08/23 Technical Support Representative Relationship Specialty Start Date End Date Jose Vail MD PCP - General Internal Medicine 05/07/16 Juan Francisco Hutchinson, MARINE ENGINE MACHINIST APPRENTICE.RECOVERY AUDITOR [address] [place] [address] Palliative Medicine Provider Hospice & Palliative Medicine 06/28/21 Kylie Mosher, RN Specialty Concrete Block Molder Hospice & Palliative Medicine 09/27/21 Alexsander Ledezma MD [address] [facility] [place] [address] Physician Hematology 02/08/23 Linette Skinner, MARINE ENGINE MACHINIST APPRENTICE.RECOVERY AUDITOR [address] [place] [address] Referring Nurse Practitioner 02/26/23 Linette Skinner, MARINE ENGINE MACHINIST APPRENTICE.RECOVERY AUDITOR [address] [place] [address] Referring Nurse Practitioner 03/06/23 Fabiana Johnson LSW Journalism Internship 03/08/23 Technical Support Representative Relationship Specialty Start Date End Date Jose Vail MD PCP - General Internal Medicine 05/07/16 Juan Francisco Hutchinson, MARINE ENGINE MACHINIST APPRENTICE.RECOVERY AUDITOR [address] [place] [id number] Palliative Medicine Provider Hospice & Palliative Medicine 06/28/21 Kylie Mosher, RN Specialty Concrete Block Molder Hospice & Palliative Medicine 09/27/21 Alexsander Ledezma MD [address] [place] [address] [place] [address] Physician Hematology 02/08/23 Linette Skinner, MARINE ENGINE MACHINIST APPRENTICE.RECOVERY AUDITOR [address] [place] [address] Referring Nurse Practitioner 02/26/23 Linette Skinner, MARINE ENGINE MACHINIST APPRENTICE.RECOVERY AUDITOR [address] [place] [address] Referring Nurse Practitioner 03/06/23 Fabiana Johnson LSW Journalism Internship 03/08/23 Technical Support Representative Relationship Specialty Start Date End Date Jose Vail MD [address] [place] [address] PCP - [employer] 02/18/22 Jose Vail MD [address] [place] [address] PCP - General Internal Medicine 06/26/22 Technical Support Representative Relationship Specialty Start Date End Date Jose Vail MD PCP - General Internal Medicine 05/07/16 Juan Francisco Hutchinson, MARINE ENGINE MACHINIST APPRENTICE.RECOVERY AUDITOR [address] [place] [address] Palliative Medicine Provider Hospice & Palliative Medicine 06/28/21 Kylie Mosher, RN Specialty Concrete Block Molder Hospice & Palliative Medicine 09/27/21 Alexsander Ledezma MD [address] [place] [address] [place] [address] Physician Hematology 02/08/23 Linette Skinner, MARINE ENGINE MACHINIST APPRENTICE.RECOVERY AUDITOR [address] [place] [address] Referring Nurse Practitioner 02/26/23 Linette Skinner, MARINE ENGINE MACHINIST APPRENTICE.RECOVERY AUDITOR [address] [place] [address] Referring Nurse Practitioner 03/06/23 Fabiana Johnson LSW Journalism Internship 03/08/23 Goals (unrecognized section and content) Goals [...] BE BASED ON THE PRIMARY CLINICAL RECORDS. [facility], [facility]. provides no warranty or guarantee of the accuracy or completeness of information in this document.
[2023-04-02] MEDS: BENZONATATE 100 MG CAPSULE 200 MG PO ×3 (08:18→21:40)
[2023-04-02] MEDS: 0.9 % SODIUM CHLORIDE 1,000 ML 100 ML IV ×2 (08:19→17:28)
--- NOTE | 2023-04-02 08:34 | P.HP_ITS ---
H&P: HPI History of Present Illness Chief complaint: COUGH/FEVER/WEAKNESS Narrative: Patient presented to the emergency room with increasing cough and shortness of breath. Fever. Found to have influenza A as well as bilateral pneumonia. Cough is productive of yellowish sputum. Patient admitted for workup and treatment of same. This is complicated by her history of cancer and elevated liver function test I also patient in the intensive care unit she is also having a significant migraine. She does have a history of headaches but not to this severity. CT scan was normal. Review of Systems ROS Status of ROS 10 or more systems reviewed and unremark able except as noted in history and below [facility] Medical History (Updated 04/02/23 @ 08:34 by Rosmery Robert) Insomnia ?G47.00 - Insomnia, unspecified (ICD-10) Tachycardia ?R00.0 - Tachycardia, unspecified (ICD-10) Restrictive lung disease ?J98.4 - Other disorders of lung (ICD-10) Hodgkin lymphoma ?C81.90 - Hodgkin lymphoma, unspecified, unspecified site (ICD-10) Surgical History (Updated 04/02/23 @ 08:34 by Rosmery Robert) H/O stem cell transplant ?Z94.84 - Stem cells transplant status (ICD-10) Social History (Updated 04/02/23 @ 08:30 by Rosmery Robert) Within the past year, how often did you have a drink containing alcohol: monthly or less Within the past year, how many standard drinks containing alcohol did you have on a typical day: 1 or 2 Within the past year, how often did you have six or more drinks on one occasion: never Total score: 0 Score interpretation: A score less than 3 is consistent with normal alcohol consumption. Smoking status: Never smoker Non-prescribed substance use: denies use Previous occupational history: unemployed Highest level of school completed/degree received: Associate degree: occupational, technical, vocational program Are you now , , , , never or living with a partner: In a typical week, how many times do you talk on the telephone with family, friends, or neighbors: 3 or more times per week How often do you get together with friends or relatives: 3 or more times per week How often do you attend congregation or episcopal services: never Do you belong to any clubs or organizations such as congregation groups unions, fraternal or athletic groups, or school groups: no Total score: 2 Score interpretation: A score of greater than or equal to 2 indicates the lowest level of social isolation. Little interest or pleasure in doing things: not at all Feeling down, depressed, or hopeless: not at all Feel stressed/tense/nervous/anxious/difficulty sleeping: not at all Do you think of yourself as: straight/heterosexual Gender Identity: female Meds Home Medications and Allergies Home Medications Medication Instructions Recorded Confirmed Type azelastine 137 mcg (0.1 %) nasal 1 spray intranasal BID 03/31/23 04/02/23 History spray aerosol fluticasone furoate 100 1 inh inhalation QAM 03/31/23 04/02/23 History mcg-vilanterol 25 mcg/dose inhalation powder (Breo Ellipta) atenolol 50 mg tablet 50 mg PO BID 04/02/23 04/02/23 History baclofen 5 mg tablet 5 mg PO TID PRN muscle spasm 04/02/23 04/02/23 History cyclobenzaprine 10 mg tablet 10 mg PO TID PRN muscle spasm 04/02/23 04/02/23 History dexlansoprazole 30 mg 30 mg PO QAM 04/02/23 04/02/23 History capsule,biphase delayed release gabapentin 300 mg capsule 300 mg PO TID 04/02/23 04/02/23 History levothyroxine 75 mcg tablet 75 mcg PO .QD 04/02/23 04/02/23 History lorazepam 0.5 mg tablet 0.5 mg PO QID PRN anxiety 04/02/23 04/02/23 History mirtazapine 30 mg tablet 30 mg PO QPM 04/02/23 04/02/23 History oxycodone 10 mg tablet 10 mg PO Q6H PRN pain 04/02/23 04/02/23 History rivaroxaban 10 mg tablet (Xarelto) 10 mg PO DAILY 04/02/23 04/02/23 History trazodone 100 mg tablet 100 mg PO QPM PRN sleep 04/02/23 04/02/23 History trazodone 50 mg tablet 50 mg PO .QHS PRN sleep 04/02/23 04/02/23 History Allergies Allergy/AdvReac Type Severity Reaction Status Date / Time Sulfa (Sulfonamide AdvReac Mild Rash Verified 03/31/23 02:19 Antibiotics) Exam Constitutional Vital Signs, click to edit/add: Last Vital Signs Temp 100.1 F 04/02/23 06:31 Pulse 110 H 04/02/23 03:20 Resp 20 04/02/23 03:20 BP 114/73 04/02/23 07:32 Pulse Ox 99 04/02/23 06:30 O2 Del Method Nasal Cannula 04/02/23 04:04 O2 Flow Rate 1.5 04/02/23 04:04 Documenting provider has reviewed patient's vital signs: yes Common normals: apparent distress (Distress secondary to headache) HENIL Common normals: head/scalp atraumatic Lymph Lymphatic: no lymphadenopathy noted Chest Common normals: inspection of chest normal Respiratory Common normals: normal respiratory effort Auscultation: rhonchi and wheezes; no egophony Cardio Common normals: regular rhythm; irregular rate Results Labs Labs: Short CBC 04/02/23 Range/Units 02:50 WBC 6.3 (4.0-11.0) 10^3/uL Hgb 14.9 (12.0-16.0) g/dL Hct 45.0 (36.0-48.0) % Plt Count 237 (150-450) 10^3/uL BMP 04/02/23 02:50 Sodium 137 Potassium 4.0 Chloride 101 Carbon Dioxide 28.7 BUN 12.0 Creatinine 0.88 Glucose 108 H Calcium 8.7 Liver Function 04/02/23 Range/Units 02:50 Total Bilirubin 0.3 (0.2-1.0) mg/dL Direct Bilirubin 0.1 (0.0-0.2) mg/dL AST 55 H (15-37) U/L ALT 70 H (14-59) U/L Alkaline Phosphatase 66 (46-116) U/L Albumin 3.4 (3.4-5.0) g/dL Urine 04/02/23 Range/Units 04:15 Urine Color Lt. yellow (YELLOW) Urine Clarity Clear (CLEAR) Urine pH 6.0 (5.0-9.0) Ur Specific [place] 1.010 (1.005-1.025) Urine Protein Negative (NEG/TRACE) mg/dL Urine Glucose (UA) Negative (NEGATIVE) mg/dL Assessment and Plan Assessment and Plan (1) Influenza: (2) Community acquired bacterial pneumonia: Plan Fever, tachycardia, respiratory distress and cough secondary to acute influenza A complicated by bilateral immunity acquired pneumonia and further complicated by her history of blood cancer. IV antibiotics, aerosol treatments, Tamiflu. Try to obtain sputum culture. Consider repeat chest x-ray for progression in a.m. Elevated liver function test-likely secondary to the above, continue to monitor. Significant migraine-we will try patient on DHE as well as as needed Fioricet. Unable to use Toradol secondary to being on blood thinners. Insomnia-continue with home medications Hypothyroidism-continue with home medications Severity of illness and complications in care as outlined about - maintain in-pt status
--- NOTE | 2023-04-02 08:35 | CM.NOTE ---
Rounds made with Dr. Amos, discussed plan of care with pt. Pt just arrived from ER for admission.
[2023-04-02] MEDS: LEVOFLOXACIN IN DEXTROSE 5 % 750 MG/150 ML IV.SOLN 100 MG IV (09:37)
[2023-04-02] MEDS: OMEPRAZOLE 40 MG CAPSULE.DR PO (09:38)
[2023-04-02] MEDS: OXYCODONE HCL 5 MG TABLET 10 MG PO ×2 (09:38→19:44)
[2023-04-02] MEDS: GABAPENTIN 300 MG CAPSULE PO ×2 (09:38→21:38)
[2023-04-02] MEDS: DIHYDROERGOTAMINE MESYLATE 1 MG/ML AMPUL IV ×2 (09:38→17:26)
[2023-04-02] MEDS: RIVAROXABAN 10 MG TABLET PO (09:38)
[2023-04-02] MEDS: ATENOLOL 25 MG TABLET 50 MG PO ×2 (09:38→21:38)
[2023-04-02] MEDS: METHYLPREDNISOLONE SOD SUCC PF 125 MG/2 ML VIAL IVP ×3 (09:39→21:40)
[2023-04-02] MEDS: AZELASTINE HCL 0.1% NASAL SPRAY 1 SPRAY NS ×2 (09:40→21:44)
[2023-04-02] MEDS: IPRATROPIUM/ALBUTEROL SULFATE 3 ML AMPUL.NEB IH ×3 (10:56→20:19)
[2023-04-02] MEDS: BUDESONIDE 0.5 MG/2 ML AMPULE NEB IH ×3 (10:57→20:22)
[2023-04-02] MEDS: TRAZODONE HCL 50 MG TABLET 100 MG PO (19:43)
[2023-04-02] MEDS: SENNOSIDES 8.6 MG TABLET PO (19:44)
[2023-04-02] MEDS: TRAZODONE HCL 50 MG TABLET PO (19:44)
[2023-04-02] MEDS: MIRTAZAPINE 15 MG TABLET 30 MG PO (21:40)
[2023-04-03] VITALS (12 sets, daily range): BP systolic 117–125; BP diastolic 80–88; PULSE 89–105; RESP 18; TEMP 36.6–37.1; O2SAT 94–97
[2023-04-03] MEDS: CEFTRIAXONE 1,000 MG in 0.9 % SODIUM CHLORIDE 50 ML 100 MG IV (04:46)
[2023-04-03] MEDS: 0.9 % SODIUM CHLORIDE 1,000 ML 100 ML IV (04:46)
[2023-04-03] MEDS: METHYLPREDNISOLONE SOD SUCC PF 125 MG/2 ML VIAL IVP (04:47)
[2023-04-03] MEDS: IPRATROPIUM/ALBUTEROL SULFATE 3 ML AMPUL.NEB IH (04:58)
[2023-04-03] MEDS: LEVOTHYROXINE SODIUM 75 MCG TABLET PO (05:06)
[2023-04-03] MEDS: BENZONATATE 100 MG CAPSULE 200 MG PO (05:07)
[2023-04-03 05:32] LABS: Hematocrit 46.8 % (36.0-48.0); Hemoglobin 15.3 g/dL (12.0-16.0); Immature Granulocytes Abs Auto 0.01 10^3/uL (0.00-0.03); Immature Granulocytes Pct Auto 0.2 % (0.0-0.5); Lymphocytes Absolute Auto 1.3 10^3/uL (1.2-3.8); Mean Corpuscular HGB Conc 32.7 g/dL (29.9-35.2); Mean Corpuscular Hemoglobin 30.8 pg (26.7-34.0); Mean Corpuscular Volume 94.4 fL (81.0-99.0); Mean Platelet Volume 9.2 fL (9.5-13.5); Monocytes Absolute Auto 0.2 10^3/uL (0.3-0.8); Monocytes Percent Auto 4.2 % (1.7-12.0); Neutrophils Percent Auto 66.6 % (43.0-75.0); Platelet Count 224 10^3/uL (150-450); Red Blood Count 4.96 10^6/uL (4.20-5.40); Red Cell Distribution Width 13.1 % (11.0-15.0); White Blood Count 4.6 10^3/uL (4.0-11.0)
[2023-04-03 05:44] LABS: Alanine Aminotransferase 58 U/L (14-59); Albumin Globulin Ratio 0.8; Albumin Level 3.2 g/dL (3.4-5.0); Alkaline Phosphatase 54 U/L (46-116); Anion Gap 16.1; Aspartate Amino Transferase 38 U/L (15-37); BUN Creatinine Ratio 11.6; Bilirubin Total 0.2 mg/dL (0.2-1.0); Chloride 103 mmol/L (98-107); Estimated GFR (African America >60 (>=60); Estimated GFR (Non-African Ame >60 (>=60); Globulin 4.2 g/dL; Glucose 161 mg/dL (74-106); Potassium 4.1 mmol/L (3.5-5.1); Sodium 142 mmol/L (136-145); Total Protein 7.4 g/dL (6.4-8.2)
[2023-04-03] MEDS: OXYCODONE HCL 5 MG TABLET 10 MG PO (08:36)
[2023-04-03] MEDS: RIVAROXABAN 10 MG TABLET PO (08:37)
[2023-04-03] MEDS: ATENOLOL 25 MG TABLET 50 MG PO (08:37)
[2023-04-03] MEDS: OMEPRAZOLE 40 MG CAPSULE.DR PO (08:37)
[2023-04-03] MEDS: GABAPENTIN 300 MG CAPSULE PO (08:37)
[2023-04-03] MEDS: AZELASTINE HCL 0.1% NASAL SPRAY 1 SPRAY NS (08:38)
[2023-04-03] MEDS: LEVOFLOXACIN IN DEXTROSE 5 % 750 MG/150 ML IV.SOLN 100 MG IV (08:39)
--- NOTE | 2023-04-03 08:55 | P.DS_ITS ---
DS: Providers Provider Date of admission: 04/02/23 04:01 Primary care physician: Non-Staff Physician, DS: Diagnosis Discharge Diagnosis (1) Influenza: (2) Community acquired bacterial pneumonia: Plan Fever, tachycardia, respiratory distress and cough secondary to acute influenza A complicated by bilateral community acquired pneumonia and further complicated by her history of blood cancer. Elevated liver function test Significant migraine- Insomnia Hypothyroidism DS: Summary Hospital Course Hospital Course: Patient presented to the emergency with increasing cough and shortness of breath, severe headache, fever and chills. In ER found to have community- acquired pneumonia complicated by influenza A, complicated by her history of leukemia although that has been in remission for the last 6 months. Patient also had initial hypoxia. That resolved fairly quickly with aerosol treatments. Made observation status. Her headaches seem to resolve with 1 dose of DHEA and Fioricet. Patient preferred not to take the Tamiflu. With hydration she was improved the following day. Still with significant cough and dyspnea but no further hypoxia. Headache is essentially resolved. At this point should be discharged home in improving condition. Medications see list. Follow-up with her PCP within the next week. Time Spent with Patient Time attestation: Total time spent providing and/or coordinating discharge services: Exam Constitutional Vital Signs, click to edit/add: Last Vital Signs Temp 98.7 F 04/03/23 08:36 Pulse 105 H 04/03/23 08:11 Resp 18 04/03/23 07:41 BP 125/88 04/03/23 07:41 Pulse Ox 95 04/03/23 07:41 O2 Del Method Room Air 04/03/23 07:41 O2 Flow Rate 1.5 04/02/23 04:04 Documenting provider has reviewed patient's vital signs: yes Common normals: apparent distress (Distress secondary to headache) HENMT Common normals: head/scalp atraumatic Lymph Lymphatic: no lymphadenopathy noted Chest Common normals: inspection of chest normal Respiratory Common normals: normal respiratory effort Auscultation: rhonchi and wheezes; no egophony Cardio Common normals: regular rhythm; irregular rate DS: Data Data Completed and Pending Labs on day of discharge: Labs from last 24 hours 04/03/23 05:12 WBC 4.6 RBC 4.96 Hgb 15.3 Hct 46.8 MCV 94.4 MCH 30.8 MCHC 32.7 RDW 13.1 Plt Count 224 MPV 9.2 L Neut % (Auto) 66.6 Lymph % (Auto) 29.0 [place] % (Auto) 4.2 Eos % (Auto) 0.0 L Baso % (Auto) 0.0 L Neut # (Auto) 3.0 Lymph # (Auto) 1.3 [place] # (Auto) 0.2 L Eos # (Auto) 0.0 Baso # (Auto) 0.0 Abs Immat Gran (auto) 0.01 Imm/Tot Granulo (auto) 0.2 Sodium 142 Potassium 4.1 Chloride 103 Carbon Dioxide 27.0 Anion Gap 16.1 BUN 8.0 Creatinine 0.69 Est GFR ( Amer) >60 Est GFR (Non-Af Amer) >60 BUN/Creatinine Ratio 11.6 Glucose 161 H Calcium 9.0 Total Bilirubin 0.2 AST 38 H ALT 58 Alkaline Phosphatase 54 Total Protein 7.4 Albumin 3.2 L Globulin 4.2 Albumin/Globulin Ratio 0.8 Discharge Plan Discharge Disposition: Home, Self-Care Discharge Medications: New azithromycin 500 mg tablet 500 mg PO DAILY 3 Days Qty: 3 0RF Continued atenolol 50 mg tablet 50 mg PO BID dexlansoprazole 30 mg capsule,biphase delayed releas 30 mg PO QAM gabapentin 300 mg capsule 300 mg PO TID lorazepam 0.5 mg tablet 0.5 mg PO QID PRN (Reason: anxiety) mirtazapine 30 mg tablet 30 mg PO QPM oxycodone 10 mg tablet 10 mg PO Q6H PRN (Reason: pain) Xarelto 10 mg tablet 10 mg PO DAILY trazodone 100 mg tablet 100 mg PO QPM PRN (Reason: sleep) baclofen 5 mg tablet 5 mg PO TID PRN (Reason: muscle spasm) cyclobenzaprine 10 mg tablet 10 mg PO TID PRN (Reason: muscle spasm) levothyroxine 75 mcg tablet 75 mcg PO .QD trazodone 50 mg tablet 50 mg PO .QHS PRN (Reason: sleep) azelastine 137 mcg (0.1 %) aerosol,spray 1 spray INTRANASAL BID fluticasone furoate-vilanterol [Breo Ellipta] 100-25 mcg/dose blister with device 1 inh INHALATION QAM Activity: resume usual activities as tolerated Diet: advance to your usual diet Patient Instructions: Azithromycin (By mouth), Influenza (DC) Forms: Portal Instructions Follow Up Appointments: @ 3pm with Dr. Moya [phone] Discharge Date/Time: 04/03/23 10:20
--- NOTE | 2023-04-03 09:46 | CM.NOTE ---
Rounds made with Dr. Amos, pt will discharge to home today. No discharge needs identified.
--- NOTE | 2023-04-03 09:59 | CM.NOTE ---
Important Message From [employer] discussed with pt, pt verbalizes understanding and signs paper. Original given to pt and copy placed on pt's chart.
--- OUTSIDE RECORDS SUMMARY | 2023-04-03 11:06 | XMS_ITS | CCD ---
Author Name Unknown Address [address] [place] [address] Organization [facility] Care Team Providers Care Light Rail Operator Name Role Phone Mary RODRIGUEZ, Abdo Unavailable Nita RODRIGUEZ, Jose A Primary Care Provider Marilyn Hughes RN Unavailable Mary RODRIGUEZ, Abdo Unavailable Juan R WALL, Kristina Unavailable Unavailable Emely EDUCATIONAL RESOURCE COORDINATOR.Juan Francisco VASQUEZ Unavailable Kylie Johnson Unavailable Mary RODRIGUEZ, Abdo Unavailable Nita RODRIGUEZ, Jose A Primary Care Provider Marilyn Hughes RN Unavailable Mary RODRIGUEZ, Abdo Unavailable Juan R WALL, Kristina Unavailable Unavailable Emely EDUCATIONAL RESOURCE COORDINATOR.Juan Francisco VASQUEZ Unavailable Kylie Mosher RN Unavailable Unavail able Nita RODRIGUEZ, Jose A Primary Care Provider Mary RODRIGUEZ, Abdo Unavailable Nita RODRIGUEZ, Jose A Primary Care Provider [phone] Marilyn Hughes RN Unavailable Mary RODRIGUEZ, Abdo Unavailable Juan R WALL, Kristina Unavailable Unavailable Emely EDUCATIONAL RESOURCE COORDINATOR.Juan Francisco VASQUEZ Unavailable Kylie Mosher RN Unavailable Unavail able DR MARIELENA CHAVIRA Primary Care Unavailable IGLESIA BLAKELY Admitting Unavailable IGLESIA BLAKELY Attending Unavailable IGLESIA BLAKELY Consulting Unavailable CONG ALMANZAR Consulting Unavailable [facility] [place] PEGUERO Primary Care Unavailable PAY ., DR PARHAM Admitting Unavailable PAY ., DR PARHAM Attending Unavailable BITA ., ZAIRA Consulting Unavailable Emely EDUCATIONAL RESOURCE COORDINATOR.STATE COMPTROLLER, Juan Francisco Unavailable [phone] Juan R WALL, Kristina Unavailable Unavailable Emely EDUCATIONAL RESOURCE COORDINATOR.STATE COMPTROLLER, Juan Francisco Unavailable [phone] Nomi WALL, Kylie Patel Unavailable Unavail able JUAN FRANCISCO HUTCHINSON Attending Unavailable VALI, JOSE A Primary Care Unavailable JUAN FRANCISCO HUTCHINSON Attending Unavailable VAIL, JOSE A Primary Care Unavailable VAIL, JOSE A Primary Care Unavailable JUAN FRANCISCO HUTCHINSON Referring Unavailable Mary RODRIGUEZ, Cyn Unavailable Jose Vail MD Primary Care Provider Mary RODRIGUEZ, Antoineo Unavailable Keke Bright Unavailable MD Jose Vail A Primary Care Provider OSCAR Bright Attending Provider [phone] Jose Vail MD Primary Care Provider [phone] Darien RODRIGUEZ, Alexsander Pacheco Unavailable Krishna EDUCATIONAL RESOURCE COORDINATOR.STATE COMPTROLLER, Linette Unavailable Krishna EDUCATIONAL RESOURCE COORDINATOR.STATE COMPTROLLER, Linette Unavailable [phone] Alex GODWIN, Fabiana Unavailable Unavailable Keke Bright Attending Unavailable Keke Bright Admitting Unavailable Vail, Jose A Primary Care Unavailable SHEILA LIN Attending Unavailable LINETTE SKINNER Attending Unavailable LINETTE SKINNER Attending Unavailable VAIL, JOSE A Referring Unavailable Glenys Vail MDecca A Unavailable Jose Vail MD Primary Care Provider NOVA BRIDGES Attending Unavailable NOVA BRIDGES Referring Unavailable VAIL, JOSE A Primary Care Unavailable ELLA CHAN Attending Unavailable VAIL, JOSE A Referring Unavailable VAIL, JOSE A Primary Care Unavailable RAMIRESCYN AGUAYO Referring Unavailable VAIL, JOSE A Primary Care Unavailable ALEXSANDER LEDEZMA Referring Unavailable VAIL, JOSE A Primary Care Unavailable ROCIO, ELLA Referring Unavailable VAIL, JOSE A Primary Care Unavailable ROCIO, ELLA Referring Unavailable KYLIE NUNES Attending Unavailable VAIL, JOSE A Primary Care Unavailable RAMIRES, ABDO Referring Unavailable VAIL, JOSE A Primary Care Unavailable RAMIRES, ABDO Attending Unavailable VAIL, JOSE A Primary Care Unavailable VAIL, JOSE A Referring Unavailable ALEXSANDER LEDEZMA Referring Unavailable VAIL, JOSE A Primary Care Unavailable RAMIRES, ABDO Attending Unavailable RAMIRES, ABDO Referring Unavailable VAIL, JOSE A Primary Care Unavailable JUAN FRANCISCO HUTCHINSON Attending Unavailable VAIL, JOSE A Primary Care Unavailable RAMIRES, ANTOINEO Attending Unavailable VAIL, JOSE A Referring Unavailable VAIL, JOSE A Primary Care Unavailable MEHUL, SUMMER Attending Unavailable VAIL, JOSE A Referring Unavailable VAIL, JOSE A Primary Care Unavailable ESTRADA DEL VALLE Attending Unavailable GETESTRADA Referring Unavailable VAIL, JOSE A Primary Care Unavailable ESTRADA DEL VALLE Attending Unavailable VAIL, JOSE A Primary Care Unavailable RAMIRES, ANTOINEO Referring Unavailable VAIL, JOSE A Primary Care Unavailable ALEXSANDER LEDEZMA Referring Unavailable VAIL, JOSE A Primary Care Unavailable JUAN FRANCISCO HUTCHINSON Attending Unavailable VAIL, JOSE A Primary Care Unavailable VAIL, JOSE A Primary Care Unavailable RAMIRES, ANTOINEO Referring Unavailable VAIL, JOSE A Primary Care Unavailable ROCIO, ELLA Referring Unavailable VAIL, JOSE A Primary Care Unavailable ROCIO, ELLA Referring Unavailable VAIL, JOSE A Primary Care Unavailable JUAN FRANCISCO HUTCHINSON Referring Unavailable VAIL, JOSE A Primary Care Unavailable JUAN FRANCISCO HUTCHINSON Attending Unavailable JUAN FRANCISCO HUTCHINSON Referring Unavailable VAIL, JOSE A Primary Care Unavailable JUAN FRANCISCO HUTCHINSON Attending Unavailable VAIL, JOSE A Primary Care Unavailable ALEXSANDER LEDEZMA Attending Unavailable RAMIRES, CYN Referring Unavailable VAIL, JOSE A Primary Care Unavailable ROCIO, ELLA Referring Unavailable VAIL, JOSE A Primary Care Unavailable RAMIRES, ABDO Attending Unavailable VAIL, JOSE A Referring Unavailable VAIL, JOSE A Primary Care Unavailable ROCIOWAQAS LopesA Attending Unavailable VAIL, JOSE A Referring Unavailable VAIL, JOSE A Primary Care Unavailable ESTRADA DEL VALLE Attending Unavailable GET, SHENYDIA Referring Unavailable VAIL, JOSE A Primary Care Unavailable ALEXSANDER LEDEZMA Attending Unavailable ALEXSANDER LEDEZMA Referring Unavailable VAIL, JOSE A Primary Care Unavailable VAIL, JOSE A Primary Care Unavailable RAMIRES, ABDO Referring Unavailable VAIL, JOSE A Primary Care Unavailable GETCASSANDRA RATLIFFEN Attending Unavailable VAIL, JOSE A Primary Care Unavailable RAMIRES, ABDO Referring Unavailable VAIL, JOSE A Primary Care Unavailable RAMIRES, ABDO Attending Unavailable RAMIRES, ABDO Referring Unavailable RAMIRES, ABDO Referring Unavailable VAIL, JOSE A Primary Care Unavailable RAMIRES, ABDO Referring Unavailable JUAN FRANCISCO HUTCHINSON Attending Unavailable VAIL, JOSE A Primary Care Unavailable Allergies Allergy Classification Reported Allergen(s) Allergy Type Date of Onset Reaction(s) Facility (20 sources) Chlorhexidine; 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: [CHLORHEXIDINE] Drug Allergy 4 Itching, Unknown [facility] Work Phone: (20 sources) Sulfonamides (Antibiotic); 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: [SULFA (SULFONAMIDE ANTIBIOTICS)] Drug Allergy 2 Rash, Unknown [facility] Work Phone: (2 sources) Sulfacetamide / Sulfur Drug Allergy rash [employer] Other (1 source) Sulfonamides (Antibiotic) Drug allergy (disorder) [facility] Repository (1 source) Sulfacetamide Drug Allergy [address] [place] [address] Repository (1 source) Sulfur Drug Allergy [address] [place] [address] Repository Medications Current Medications Medication Drug Class(es) [...] twice daily for 7 days. bifidobacterium animalis [id number] unt / lactobacillus acidophilus [id number] unt oral capsule (2 sources) Start: 10-03-2021 [...] topical cream (2 sources) Azole Antifungal Start: 02-14-20 ketoconazole (NIZOral) 2 % cream Apply 1 [...] 10 mL injection (DEFINITY) (20 sources) Start: End: perflutren lipid microspheres 1.3 mL in NaCl (PF) 0.9% 10 mL injection (DEFINITY) phenazopyridine hydrochloride 200 mg oral tablet (1 source) Start: take 1 tablet by mouth every eight hours Pyridium 200 MG 1 tablet after meals Orally Three times a day for 2 day(s) Jan, Active pregabalin 100 mg oral capsule (10 sources) Start: End: take 1 capsule by mouth twice daily pregabalin (LYRICA) 100 mg capsule Indications: Palliative care by specialist , Nodular sclerosing Hodgkin's lymphoma, unspecified body region (HCC) , Cancer related pain Take 1 capsule by mouth twice daily for 90 days. 60 capsule 2 10/18/2022 01/16/2023 Active Comment on above: Take 1 capsule by mo ut twice daily for 90 days. traZODone hydrochloride 100 mg oral tablet (20 sources) Serotonin Reuptake Inhibitor Start: traZODone (Desyrel) 100 MG tablet Indications: Insomnia, unspecified type Take 1 tablet (100 mg) by mouth as needed at bedtime for sleep 90 tablet 3 02/04/2023 Active take 2 tablets by mo [facility] once daily at bedtime traZODone (DESYREL) 50 [...] 1 tablet by jaleesa twice a day [id number] 200 actuat albuterol 0.09 mg/actuat metered dose inhaler (20 sources) beta2-Adrenergic Agonist Start: 2 End: 3 take 2 puff(s) by inhalation [...] PRESCRIPTION NOTES). inhale 2 puffs by mo ut INTO THE LUNGS every 6 hours Inhale [...] daily azelastine 0.1% nasal spray Use 1 Mcintyre in each nostril two times a day. 30 mL 0 03/28/2023 Active Comment on above: Use 1 Mcintyre in each nostril two times a day. [...] Start: 07-31-2021 take 1 tablet by jaleesa three times daily baclofen (LIORESAL) 5 mg tablet Indications: Muscle cramps , Nodular sclerosis classical Hodgkin lymphoma (HCC) take 1 tablet by mouth three times a day 90 tablet 2 07/31/2021 Active Start: 07-31-2021 take 1 tablet by jaleesa twice daily baclofen (LIORESAL) 5 mg tablet [...] Take 1 tablet by jaleesa three times daily. take 1 tablet by jaleesa three times a day Take 1 tablet by jaleesa twice daily. [facility]. biotin 2.5 mg [...] topical lotion (20 sources) Lincosamide Antibacterial Start: End: Clindamycin Phosphate (CLEOCIN T) 1 % lotion To groin daily 60 mL 4 12/06/2020 04/23/2022 Discontinued Comment on above: To groin daily dexlansoprazole 30 mg delayed release oral capsule (20 sources) Proton Pump Inhibitor Start: take 1 capsule by mouth once daily Dexlansoprazole (DEXILANT) 30 mg CpDM Take 1 capsule by mouth once daily. 60 capsule 6 07/20/2019 Active Dexilant Active Comment on above: Take 1 capsule by [facility] once daily. doxycycline monohydrate 100 mg oral [...] once daily. Take 1 capsule by mo [facility] twice daily for 7 days. Take 1 [...] on above: Take 1 capsule by mo [facility] once daily. fluocinonide 0.5 mg/ml topical cream [...] dose nasal spray (2 sources) Corticosteroid Start: take 1 spray(s) nasal route once daily [...] above: Take 1 tablet by jaleesa th two times a day. hydrOXYzine hydrochloride 25 [...] jaleesa th three times daily as needed. Prescribed by [...] 1 tablet by jaleesa th once daily. LORazepam 0.5 mg oral tablet (20 sources) Benzodiazepine Start: take 1 tablet by mouth four times [...] nasal spray (20 sources) Opioid Antagonist Start: 020 End: naloxone 4 mg/actuation nasal spray (NARCAN) [...] oral tablet (10 sources) Start: 023 End: 023 take 2 tablets by mouth once daily predniSONE (DELTASONE) 20 mg tablet Indications: Abnormal CT of the chest Take 2 tablets by mouth once daily. 10 tablet 0 06/04/2022 07/19/2022 Discontinued Comment on above: Take 2 tablets by [facility] once daily. 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 Do not start before March 12, 2021. 90 tablet 0 03/12/2021 05/17/2021 Discontinued Comment on above: Take 1 tablet by jaleesa th three times daily as needed for up [...] C No.3 (B COMPLEX PLUS VITAMIN C) 73-01-44-5-300 mg cap (20 sources) Start: 08-11-2019 Vitamin B Comp and C No.3 (B COMPLEX PLUS VITAMIN C) 03-05-86-5-300 mg cap Take 1 tablet by mouth [...] care] Episodic Other aftercare (1 source) Other terminal carman (current) drug therapy; 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: [OTH WATERWORKS CHIEF ENGINEER CURRENT DRUG THERAPY] Onset: 3 Episodic Other [...] of dyspnea] Episodic Other lower respiratory disease (1 source) [...] aftercare (14 sources) Drug therapy finding; 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: [manager terminal (current) use of opiate analgesic] Onset: 12-20-2022 Episodic Other aftercare (1 source) manager terminal (current) use of anticoagulants; 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: [CARE HOME CURRNT USE ANTICOAGULANTS] Onset: 07-26-2021 Episodic Other aftercare (1 source) manager terminal (current) use of opiate analgesic; 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: [Opioid [...] 09-12-2015 09-12-2015 Episodic Other lower respiratory disease (8 sources) Chronic cough; 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: [Chronic cough] Onset: 09-13-2022 Episodic Other lower respiratory disease (1 source) [...] Reference Range Facility NITRIC OXIDE, EXHALEDon 02-0 [facility] Urinalysis - AUTOMATEDon Appearance (U) clear [facility] Other Bilirubin Ql (U) Negative [employer] Other Color (U) bright yellow [employer] Other Glucose Ql (U) Negative [facility] Other Hemoglobin Ql (U) Negative [employer] Other Ketones Ql (U) Negative [facility] Other Leukocyte esterase Test strip Ql (U) trace [employer] Other Nitrite Ql (U) Negative [facility] Other pH (U) 6.0 [pH] [employer] Other Protein Ql (U) Negative [facility] Other Specific gravity (U) [Rel density] 1.010 [employer] Other Urobilinogen (U) [Mass/Vol] 0.2 mg/dL [employer] Other Urinalysis - AUTOMATED [employer] Other Urine Cultureon 01-29-2023 Bacteria identified Cx Nom (U) Reason for Exam Dysuria Urine Reason for Exam: Dysuria : Urine ORGANISM: Escherichia coli (O:ESCCOL) [place] Count >100,000 Aerobic RICARDO Charge (NMIC56) -- [...] RESISTANT TO ALL B-LACTAM DRUGS. PERFORMED BY: [facility] [address] [place] [address] PATHOLOGIST [address] ANNEALER MARGARITA HAYWOOD M.D. Normal [facility] Comment on above: Performed By: #### C UU #### [address] CORTISOL BLDon 01-02-2023 Cortisol [Mass/Vol] 1.6 ug/dL Low 4.8 - 19 .5 ug/dL [facility] ESR Westergren method (Bld) [Velocity]on 01-02-2023 ESR (Bld) [Velocity] 2 mm/h 0 - 20 mm/hr [facility] T4/FTI/T4Uon 01-02-2023 FTI 7.5 ug/dL 5.3 - 10.8 ug/dL [facility] T4 [Mass/Vol] 7.6 ug/dL 5.5 - 10.2 ug/dL [facility] T4 uptake [Mass/Vol] 1.01 0.91 - 1.19 [facility] TSH BLDon 01-02-2023 TSH Qn 1.820 m[IU]/L 0.270 - 4.200 mIU/L [facility] CBC W Auto Differential pane l (Bld)on 01-01-2023 Basophils (Bld) [#/Vol] <0.11 k/uL [facility] Basophils/100 WBC (Bld) 0.2 % [facility] Differential cell count method Nom (Bld) Auto [facility] Eosinophils (Bld) [#/Vol] 0.21 10*3/uL <0.46 k/uL [facility] Eosinophils/100 WBC (Bld) 2.6 % [facility] Erythrocyte distribution width (RBC) [Ratio] 13.8 % 11.5 - 15.0 % [facility] Hematocrit (Bld) [Volume fraction] 44.6 % 36.0 - 46.0 % [facility] Hemoglobin (Bld) [Mass/Vol] 14.6 g/dL 11.5 - 15.5 g/dL [facility] Immature granulocytes (Bld) [#/Vol] 0.08 10*3/uL <0.10 k/uL [facility] Immature granulocytes/100 WBC (Bld) 1.0 % [facility] Lymphocytes (Bld) [#/Vol] 2.56 10*3/uL 1.00 - 4.00 k/uL [facility] Lymphocytes/100 WBC (Bld) 32.0 % [facility] MCH (RBC) [Entitic mass] 31.1 pg 26.0 - 34.0 pg [facility] MCHC (RBC) [Mass/Vol] 32.7 g/dL 30.5 - 36.0 g/dL [facility] MCV (RBC) [Entitic vol] 94.9 fL 80.0 - 100.0 fL [facility] Monocytes (Bld) [#/Vol] 0.62 10*3/uL <0.87 k/uL [facility] Monocytes/100 WBC (Bld) 7.7 % [facility] Neutrophils (Bld) [#/Vol] 4.52 10*3/uL 1.45 - 7.50 k/uL [facility] Neutrophils/100 WBC (Bld) 56.5 % [facility] Nucleated RBC (Bld) [#/Vol] <0.01 k/uL [facility] Nucleated RBC/100 WBC (Bld) [Ratio] 0.0 /100 WBC [facility] Platelet mean volume (Bld) [Entitic vol] 9.0 fL 9.0 - 12.7 fL [facility] Platelets (Bld) [#/Vol] 320 10*3/uL 150 - 400 k/uL [facility] RBC (Bld) [#/Vol] 4.70 10*6/uL 3.90 - 5.2 0 m/uL [facility] WBC (Bld) [#/Vol] 8.01 10*3/uL 3.70 - 11. 00 k/uL [facility] Comprehensive metabolic 2000 panelon 01-01-2023 Albumin [Mass/Vol] 4.5 g/dL 3.9 - 4.9 g/dL [facility] ALP [Catalytic activity/Vol] 93 U/L 34 - 123 U/L [facility] ALT [Catalytic activity/Vol] 49 U/L High 7 - 38 U/L [facility] Anion gap [Moles/Vol] 9 mmol/L 9 - 18 mmol/L [facility] AST [Catalytic activity/Vol] 38 U/L High 13 - 35 U/L [facility] Bilirubin [Mass/Vol] 0.2 mg/dL 0.2 - 1.3 mg/dL [facility] Calcium [Mass/Vol] 9.6 mg/dL 8.5 - 10. 2 mg/dL [facility] Chloride [Moles/Vol] 102 mmol/L 97 - 105 mmol/L [facility] CO2 [Moles/Vol] 28 mmol/L 22 - 30 mmol/L [facility] Creatinine [Mass/Vol] 0.68 mg/dL 0.58 - 0.96 mg/dL [facility] Estimated Glomerular Filtration Rate 113 mL/min/1.73m >=60 mL/min/1.73m [facility] Glucose [Mass/Vol] 102 mg/dL High 74 - 99 mg/dL [facility] Potassium [Moles/Vol] 4.4 mmol/L 3.7 - 5.1 mmol/L [facility] Protein [Mass/Vol] 7.3 g/dL 6.3 - 8.0 g/dL [facility] Sodium [Moles/Vol] 139 mmol/L 136 - 144 mmol/L [facility] Urea nitrogen [Mass/Vol] 9 mg/dL 7 - 21 mg/dL [facility] LD LACTATE DEHYDROon 023 LDH [Catalytic activity/Vol] 283 U/L High 135 - 214 U/L [facility] MAGNESIUM BLDon 01-01-2023 Magnesium [Mass/Vol] 2.5 mg/dL High 1.7 - 2.3 mg/dL [facility] CNOVon 12-20-2022 CNOV Office Visit ([facility] ) CELSO POTTS ([id number]) 1980 F Date Time Provider Department 12/20/22 10:00 AM JUAN FRANCISCO HUTCHINSONMarianne During your visit today, we recorded the [...] not follow [place] close to her home. Keeps well hydrated because dehydration has always made these symptoms worse. She is taking gabapentin 600 mg TID. Also taking oxycodone 10 mg 3-4 times per day Denies confusion, oversedation, myoclonus, constipation Fatigued but does not sleep during the day Going out with friends and keeping busy as much as she can Modified ESAS ([place] Symptom Assessment Scale) Information Provided By: Patient [...] modalities? Yes (more content not included)... Normal [facility] CNNURSEon 10-18-2022 CNNURSE Nurse Visit ([facility]) CELSO POTTS ([id number]) 1980 F Date Time Provider Department 10/18/22 10:30 AM [facility] During your visit today, we recorded the [...] for comfort Referring Provider: JUAN FRANCISCO HUTCHINSON [[id number]] Allergies As of Date: 10/18/2022 Noted Allergy Reaction CHLORHEXIDINE 03/11/2013 9 - Itching Comments: Severe skin irritation. Had used for central line care SULFA (SULFONAMIDE ANTIBIOTICS) 01/07/2012 2 - Rash Date Reviewed: 10/18/2022 Reviewed by: Juan Francisco Hutchinson APRN.STATE COMPTROLLER - Fully Assessed Reason for Visit: LESION, [...] C No.3 (B COMPLEX PLUS VITAMIN C) 17-04-27-5-300 mg cap Take 1 tablet by mouth once daily. - Dexlansoprazol (more content not included)... Normal [facility] 10-18-2022 [facility] CELSO POTTS ([id number]) 1980 F Date Time Provider Department 10/18/22 11:30 AM JUAN FRANCISCO HUTCHINSON [facility] During your visit today, we recorded the following information about you: Temperature Pulse Blood pressure Weight 98.2 degrees 96/minute 116/81 102 kg Juan Francisco Hutchinson, LORY.STATE COMPTROLLER 10/18/2022 3:27 PM Signed PALLIATIVE MEDICINE PROGRESS [...] Denies confusion, oversedation, myoclonus, constipation. Modified ESAS ([place] Symptom Assessment Scale) Information Provided By: Patient [...] 10/18/2022 by (more content not included)... [facility] CELSO POTTS ([id number]) 1980 F Date Time Provider Department 10/18/22 KYLIE MOSHER [facility] During your visit today, we recorded the following information about you: Kylie Mosher RN 10/18/2022 3:19 PM Addendum Prior Authorization Documentation Prior authorization requested via [facility] for the following medication: Medication: Lyrica 100 mg capsules Approved and authorizes your coverage from 02/18/2022 - 02/17/2023, Insurance Company Name: [employer] Phone number: [phone] Patient ID number: [id number] Osorio [id number] Pharmacy Name: [facility] Telephone number: [phone] Kylie Mosher RN October 18, 2022 1:38 PM Allergies As of Date: 10/18/2022 Noted Allergy Reaction CHLORHEXIDINE 03/11/2013 9 - Itching Comments: Severe skin irritation. Had used for central line care SULFA (SULFONAMIDE ANTIBIOTICS) 01/07/2012 2 - Rash Date Reviewed: 10/18/2022 Reviewed by: Juan Francisco Hutchinson APRN.STATE COMPTROLLER - Fully Assessed Reason for Visit: Insurance [...] C No.3 (B COMPLEX PLUS VITAMIN C) 44-49-60-5-300 mg cap Take 1 tablet by mouth [...] Insomnia [G47.00] (more content not included)... Normal [facility] CNOVon 09-13-2022 CNOV Office Visit ([facility] ) DELROYCELSO Junior ([id number]) 1980 F Date Time Provider Department 09/13/22 [...] PFT: SPIROMETRY - BASELINE AND POST DILATOR ([id number]) - ordered on 11/03/19 [facility] [address] [place] [place] [address] Test Date: 2019-11-03 Pat Name: CELSO POTTS Department: Room: Gender: Female Communication Signals Intelligence: Perla Baker : 1980 Requested By: Order Number: [id number] Reading MD: Justin Moreno Interpretive Statements PRE [...] 38 .4 FIVC L 2.35 2.35 0.0 IQS39-28% L/s 2.36 2.36 3. (more content not included)... Normal [facility] CNOVSPon 08-22-2022 CNOVSP Visit (SP) Office ([facility]) CELSO [id number]) 1980 F Date Time Provider Department 08/22/22 [...] pneumonitis She saw Dr. Alejandro sarmiento at [facility] for 2nd opinion cell([id number]) She agreed with out plan and recommended [...] FAMILY HISTORY (more content not included)... Normal [facility] PET/CT SKULL-THIGH SUBQon 08-14-2022 AR PET/CT SKULL-THIGH SUBQ * * *Final Report* * * DATE OF EXAM: Aug 14 2022 1:45PM NRN [id number] - AR PET/CT SKULL-THIGH SUBQ / PROCEDURE REASON: Nodular [...] any questions regarding this interpretation, please call [phone]. If you are unable to reach us at the number above, please feel free to contact [facility] e[facility]iology at [phone]. [id number] Normal [facility] 08-02-2022 [facility]OHINI Telephone (JORGEO) CELSO POTTS ([id number]) 1980 F Date Time Provider Department 08/02/22 ELLA CHAN During your visit today, we recorded the following information about you: Ella Chan APRN.STATE COMPTROLLER 08/02/2022 5:06 PM Signed Discussed patient's recent [...] [R05.3] Order(s):SPIROMETRY - BASELINE AND POST DILATOR [[id number]] Order #: [id number]: 1 FUTURE LUNG DIFFUSION CAPACITY (DLCO) [[id number]] Order #: [id number]: 1 FUTURE NITRIC OXIDE, EXHALED [[id number]] Order #: [id number]: 1 FUTURE Prescriptions as of 08/05/2022 - [...] C No.3 (B COMPLEX PLUS VITAMIN C) 69-73-75-5-300 mg cap Take 1 tablet by mouth [...] NaCl (PF (more content not included)... Normal [facility] CNOVon 08-01-2022 CNOV Office Visit (PULMLO ) CELSO POTTS Junior ([id number]) 1980 F Date Time Provider Department 08/01/22 [...] or chills. Electronically signed by Ella Chan APRN.[facility] Respiratory [place], [facility] July 31, 2022 HPI: Celso Potts [...] with antibio (more content not included)... Normal [facility] CNOVon 07-31-2022 CNOV Office Visit (AMDERM ) CELSO POTTS ([id number]) 1980 F Date Time Provider Department 07/31/22 11:00 AM NOVA BRIDGES During your visit today, we recorded the following information about you: Nova Bridges APRN.[facility] 07/31/2022 11:32 AM Signed SKIN EXAM ESTABLISHED [...] History Tobacco Use Smoking status: Former Years: 10. Types: Cigarettes Quit date: 01/18/2012 Years since [...] C No.3 (B COMPLEX PLUS VITAMIN C) 95-76-88-5-300 mg cap Take 1 tablet by mouth [...] sinus trac (more content not included)... Normal [facility] CNOVon 07-19-2022 CNOV Office Visit (PMAE ) CLESO POTTS ([id number]) 1980 F Date Time Provider Department 07/19/22 10:30 AM JUAN FRANCISCO HUTCHINSON [facility] During your visit today, we recorded the following information about you: Pulse Blood pressure Weight 104/minute 124/84 105.3 kg Juan Francisco Hutchinson APRN.CNP 07/19/2022 11:18 AM Signed PALLIATIVE MEDICINE PROGRESS NOTE SERVICE DATE: 07/19/2022 Primary Site of Disease/Medical Illness: Hodgkin Lymphoma Site of Metastasis: Liver, Lymph nodes, Spleen CHIEF COMPLAINT: pain follow up PERTINENT MEDICAL HISTORY: Celso PachecoNancy Delroy is a 42 yo female with Hodgkin's [...] bilateral lung rodriguez. Finished steroids and antibiotics. [place] very good after this but then as [...] relaxants. Denies confusion, oversedation, myoclonus. Modified ESAS ([place] Symptom Assessment Scale) Information Provided By: Patient [...] drug relat (more content not included)... Normal [facility] CNOVSPon 07-18-2022 CNOVSP Visit (SP) Office (MILY) DORCASCELSO ROONEY Junior ([id number]) 1980 F Date Time Provider Department 07/18/22 [...] pneumonitis She saw Dr. Alejandro sarmiento at [facility] for 2nd opinion cell([id number]) She agreed with out plan and recommended [...] incidentally fo (more content not included)... Normal [facility] CT CHEST WO IVCONon 07-18-19 CT CHEST WO IVCON * * *Final Report* * * DATE OF EXAM: Jul 17 2022 1:18PM [facility] 0541 - CT CHEST WO IVCON [...] fatty infiltration. No evidence of adrenal mass.. Application Penetration Tester (topogram) images: No additional findings. IMPRESSION: 1. [...] Postradiation changes in the bilateral lung rodriguez. Data Security Coordinator: [facility] Transcribe Date/Time: Jul 18 2022 8:19A Dictated by : YOGESH DAVIS MD This examination was interpreted and the report reviewed and electronically signed by: YOGESH DAVIS MD on Jul 18 2022 8:58AM EST [id number] Normal [facility] CBC AUTO DIFFon 06-21-2022 BASO # 0.0 103/ul Normal 0.0-0.[address] [facility] Comment on above: Performed By: #### C BC #### [facility] [address] [address] [address] Kristina Morales Basophils/100 WBC (Bld) 0.4 % Normal 0.2-2.[address] [facility] Comment on above: Performed By: #### C BC #### [facility] [address] [address] [address] Kristina Morales EO # 0.2 103/ul Normal 0.0-0.7 [facility] Comment on above: Performed By: #### C BC #### [facility] [address] [address] [address] Kristina Morales Eosinophils/100 WBC (Bld) 2.9 % Normal 0.9-7.[address] [facility] Comment on above: Performed By: #### C BC #### [facility] [address] [address] [address] Kristina Morales Erythrocyte distribution width (RBC) [Ratio] 13.7 % Normal 11.0-15.[address] [facility] Comment on above: Performed By: #### C BC #### [facility] [address] [address] [address] Kristina Morales Hematocrit (Bld) [Volume fraction] 44.2 % Normal 36.0-48.[address] [facility] Comment on above: Performed By: #### C BC #### [facility] [address] [address] [address] Kristina Morales Hemoglobin (Bld) [Mass/Vol] 14.9 g/dL Normal 12.0-16.[address] [facility] Comment on above: Performed By: #### C BC #### [facility] [address] [address] [address] Kristina Morales IG # 0.02 10e3/ul Normal 0.00-0.[address] [facility] Comment on above: Performed By: #### C BC #### [facility] [address] [address] [address] Kristina Morales IG % 0.3 % Normal 0.0-0.[address] [facility] Comment on above: Performed By: #### C BC #### [facility] [address] [address] [address] Kristina Morales LYMPH # 2.0 103/ul Normal 1.2-3.[address] [facility] Comment on above: Performed By: #### C BC #### [facility] [address] [address] [address] Kristina Morales Lymphocytes/100 WBC (Bld) 27.8 % Normal 20.5-60.[address] [facility] Comment on above: Performed By: #### C BC #### [facility] [address] [address] [address] Kristina Morales MANUAL DIFF REQ NO Normal [facility] Comment on above: Performed By: #### C BC #### [facility] [address] [place] [address] Dr. Kristina Morales MCH (RBC) [Entitic mass] 32.0 pg Normal 26.7-34.[address] [facility] Comment on above: Performed By: #### C BC #### [facility] [address] [address] [address] Kristina Morales MCHC (RBC) [Mass/Vol] 33.7 g/dL Normal 29.9-35.[address] [facility] Comment on above: Performed By: #### C BC #### [facility] [address] [address] [address] Kristina Morales MCV (RBC) [Entitic vol] 94.8 fL Normal 81.0-99.[address] [facility] Comment on above: Performed By: #### C BC #### [facility] [address] [address] [address] Kristina Morales MONO # 0.7 103/ul Normal 0.3-0.[address] [facility] Comment on above: Performed By: #### C BC #### [facility] [address] [place] [address] Dr. Kristina Morales Monocytes/100 WBC (Bld) 9.5 % Normal 1.7-12.[address] [facility] Comment on above: Performed By: #### C BC #### [facility] [address] [place] [address] Dr. Kristina Morales NEUT # 4.2 103/ul Normal 1.4-6.[address] [facility] Comment on above: Performed By: #### C BC #### [facility] [address] [place] [address] Dr. Kristina Morales Neutrophils/100 WBC (Bld) 59.1 % Normal 43.0-75.0 [facility] Comment on above: Performed By: #### C BC #### [facility] [address] [place] [address] Dr. Kristina Morales Platelet mean volume (Bld) [Entitic vol] 9.1 fL Critically low 9.5-13.5 [facility] Comment on above: Performed By: #### C BC #### [facility] [address] [place] [address] Dr. Kristina Morales PLT 302 103/ul Normal 150-450 [facility] Comment on above: Performed By: #### C BC #### [facility] [address] [address] [address] Kristina Morales RBC 4.66 106/ul Normal 4.20-5.40 [facility] Comment on above: Performed By: #### C BC #### [facility] [address] [place] [address] Dr. Kristina Morales WBC 7.2 103/ul Normal 4.0-11.[address] [facility] Comment on above: Performed By: #### C BC #### [facility] [address] [address] [address] Kristina Morales CRPon 06-21-2022 CRP 2.2 mg/dL Critically high <=1.0 [facility] Comment on above: Performed By: #### C RP, BMP #### [facility] [address] [place] [address] HEAD WO CONon [...] CONG SAID Date: 2022-06-21 05:34 Normal [facility] PROF CHEM 8 (BAS METB)on Anion gap [Moles/Vol] 11.9 mmol/L Normal [facility] Comment on above: Performed By: #### C RP, BMP #### [facility] [address] [place] [address] Dr. Kristina Morales Calcium [Mass/Vol] 9.5 mg/dL Normal 8.5-10.1 [facility] Comment on above: Performed By: #### C RP, BMP #### [facility] [address] [place] [address] Dr. Kristina Morales Chloride [Moles/Vol] 106 mmol/L Normal 98-[address] [facility] Comment on above: Performed By: #### C RP, BMP #### [facility] [address] [place] [address] Dr. Kristina Morales CO2 [Moles/Vol] 26.7 mmol/L Normal 21.0-32.0 [facility] Comment on above: Performed By: #### C RP, BMP #### [facility] [address] [place] [address] Dr. Kristina Morales Creatinine [Mass/Vol] 0.91 mg/dL Normal 0.55-1.[address] [facility] Comment on above: Performed By: #### C RP, BMP #### [facility] [address] [place] [address] Dr. Kristina Morales EGFR-AF MALIAN >60 Normal >=60 [facility] Comment on above: Performed By: #### C RP, BMP #### [facility] [address] [place] [address] Dr. Kristina Morales EGFR-NON AF MALIAN >60 Normal >=[address] [facility] Comment on above: Performed By: #### C RP, BMP #### [facility] [address] [place] [address] Dr. Kristina Morales Glucose [Mass/Vol] 118 mg/dL Critically high 74-106 [facility] Comment on above: Performed By: #### C RP, BMP #### [facility] [address] [place] [address] Dr. Kristina Morales Potassium [Moles/Vol] 3.6 mmol/L Normal 3.5-5.[address] [facility] Comment on above: Performed By: #### C RP, BMP #### [facility] [address] [place] [address] Dr. Kristina Morales Sodium [Moles/Vol] 141 mmol/L Normal 136-145 [facility] Comment on above: Performed By: #### C RP, BMP #### [facility] [address] [place] [address] Dr. Kristina Morales Urea nitrogen [Mass/Vol] 17.0 mg/dL Normal 7.0-18.[address] [facility] Comment on above: Performed By: #### C RP, BMP #### [facility] [address] [address] [address] Kristina Morales Urea nitrogen/Creatinine [Mass ratio] 18.7 mg/mg Normal [facility] Comment on above: Performed By: #### C RP, BMP #### [facility] [address] [address] [address] [facility] C[facility]N Telephone (PULMLO) CELSO POTTS ([id number]) 1980 F TRN Date Time Provider Department 06/13/22 ELLA CHAN During your visit today, we recorded the following information about you: Marilyn Hughes, HILARY 06/13/2022 1:19 PM Signed Celso Potts called today. : 1980 Allergies: Chlorhexidine and Sulfa (Sulfonamide Antibiotics) (home) [phone] (cell) Reason for call: Patient states that at the last office visit 06/04/22 the provider was going to call in [facility]. She states it was not called in . Please advise. e- [id number] [place] [address] - [address] [facility] [facility] - [phone] [address] [address] [facility] [id number] Patient last appointment: 06/04/2022 The patients preferred pharmacy has been captured for this encounter? yes Marilyn Hughes, PSS Mitzi Hutchinson MA 06/13/2022 1:32 PM Signed Called pharmacy on dial to verify they have medication in stock and I spoke with pharmacy intake technician [place] who states they have 1 box in [...] Date Reviewed: 06/04/2022 Reviewed by: Ella Chan APRN.STATE COMPTROLLER - Fully Assessed Reason for Visit: New [...] C No.3 (B COMPLEX PLUS VITAMIN C) 94-28-12-5-300 mg cap Take 1 tablet by mouth [...] sodium ch (more content not included)... Normal [facility] CNOVon 06-04-2022 CNOV Office Visit (PULMLO ) CELSO POTTS ([id number]) 1980 F TRN Date Time Provider Department 06/04/22 9:30 AM ELLA CHAN During your visit today, we recorded the following information about you: Temperature Pulse Blood pressure Weight 97.1 degrees 100/minute 126/89 108.4 kg Height 1.81 m Ella Chan APRN.CNP 06/05/2022 1:06 PM Signed [facility] Date: [...] or chills. Electronically signed by Ella Chan APRN.[facility] Respiratory [place], [facility] June 04, 2022 HPI: Celso Potts [...] benadryl, Abi[place] (more content not included)... Normal [facility] CT CHEST WO IVCONon 06-01-19 CT CHEST WO IVCON * * *Final Report* * * DATE OF EXAM: May 31 2022 8:04AM [facility] 0541 - CT CHEST WO IVCON [...] abnormalities. Upper abdomen: Diffuse hepatic fatty infiltration. Application Penetration Tester (topogram) images: No additional findings. IMPRESSION: 1. [...] any questions regarding this interpretation, please call [phone]. If you are unable to reach us at the number above, please feel free to contact [facility] eRadiology at [phone]. [id number] Normal [facility] CNOVSPon 05-22-2022 CNOVSP Visit (SP) Office (HEMAVN) DELROYCELSO ([id number]) 1980 F TRN Date Time Provider Department [...] pneumonitis She saw Dr. Alejandro sarmiento at [facility] for 2nd opinion cell([id number]) She agreed with out plan and recommended [...] (May 27, (more content not included)... Normal [facility] CBC W Auto Differential pane l (Bld)on 05-14-2022 Basophils (Bld) [#/Vol] 0.04 10*3/uL Normal <0.11 [facility] Comment on above: Order Comment: Speci men Type: BLOOD SPECIMENOrdering Facility: [facility] Address: [address] [place] [address] Performed By: #### 5 7021-8 ####[facility] LABCLIA [id number] [place] [address] Basophils/100 WBC (Bld) 0.5 % Normal [facility] Comment on above: Order Comment: Speci men Type: BLOOD SPECIMENOrdering Facility: [facility] Address: [address] [place] [address] Performed By: #### 5 7021-8 ####[facility] LABCLIA [id number] [place] [address] Differential cell count method Nom (Bld) Auto Normal [facility] Comment on above: Order Comment: Speci men Type: BLOOD SPECIMENOrdering Facility: [facility] Address: [address] [place] [address] Performed By: #### 5 7021-8 ####[facility] LABCLIA [id number] [place] [address] Eosinophils (Bld) [#/Vol] 0.20 10*3/uL Normal <0.46 [facility] Comment on above: Order Comment: Speci men Type: BLOOD SPECIMENOrdering Facility: [facility] Address: [address] [place] [address] Performed By: #### 5 7021-8 ####[facility] LABCLIA [id number] [place] [address] Eosinophils/100 WBC (Bld) 2.4 % Normal [facility] Comment on above: Order Comment: Speci men Type: BLOOD SPECIMENOrdering Facility: [facility] Address: [address] [place] [address] Performed By: #### 5 7021-8 ####[facility] LABCLIA [id number] [place] [address] Erythrocyte distribution width (RBC) [Ratio] 13.4 % Normal 11.5-15.0 [facility] Comment on above: Order Comment: Speci men Type: BLOOD SPECIMENOrdering Facility: [facility] Address: [address] [place] [address] Performed By: #### 5 7021-8 ####[facility] LABCLIA [id number] [place] [address] Hematocrit (Bld) [Volume fraction] 46.1 % High 36.0-46.0 [facility] Comment on above: Order Comment: Speci men Type: BLOOD SPECIMENOrdering Facility: [facility] Address: [address] [place] [address] Performed By: #### 5 7021-8 ####[facility] LABCLIA [id number] [place] [address] Hemoglobin (Bld) [Mass/Vol] 15.2 g/dL Normal 11.5-15.5 [facility] Comment on above: Order Comment: Speci men Type: BLOOD SPECIMENOrdering Facility: [facility] Address: [address] [place] [address] Performed By: #### 5 7021-8 ####[facility] LABCLIA [id number] [place] [address] Immature granulocytes (Bld) [#/Vol] 0.03 10*3/uL Normal <0.10 [facility] Comment on above: Order Comment: Speci men Type: BLOOD SPECIMENOrdering Facility: [facility] Address: [address] [place] [address] Performed By: #### 5 7021-8 ####[facility] LABCLIA [id number] [place] [address] Immature granulocytes/100 WBC (Bld) 0.4 % Normal [facility] Comment on above: Order Comment: Speci men Type: BLOOD SPECIMENOrdering Facility: [facility] Address: [address] [place] [address] Performed By: #### 5 7021-8 ####[facility] LABIA [id number] [place] [address] Lymphocytes (Bld) [#/Vol] 1.91 10*3/uL Normal 1.00-4.00 [facility] Comment on above: Order Comment: Speci men Type: BLOOD SPECIMENOrdering Facility: [facility] Address: [address] [place] [address] Performed By: #### 5 7021-8 ####[facility] LABIA [id number] [place] [address] Lymphocytes/100 WBC (Bld) 22.9 % Normal [facility] Comment on above: Order Comment: Speci men Type: BLOOD SPECIMENOrdering Facility: [facility] Address: [address] [place] [address] Performed By: #### 5 7021-8 ####[facility] LABIA [id number] [place] [address] MCH (RBC) [Entitic mass] 31.0 pg Normal 26.0-34.0 [facility] Comment on above: Order Comment: Speci men Type: BLOOD SPECIMENOrdering Facility: [facility] Address: [address] [place] [address] Performed By: #### 5 7021-8 ####[facility] LABCLIA [id number] [place] [address] MCHC (RBC) [Mass/Vol] 33.0 g/dL Normal 30.5-36.0 [facility] Comment on above: Order Comment: Speci men Type: BLOOD SPECIMENOrdering Facility: [facility] Address: [address] [place] [address] Performed By: #### 5 7021-8 ####[facility] LABCLIA [id number] [place] [address] MCV (RBC) [Entitic vol] 93.9 fL Normal 80.0-100.0 [facility] Comment on above: Order Comment: Speci men Type: BLOOD SPECIMENOrdering Facility: [facility] Address: [address] [place] [address] Performed By: #### 5 7021-8 ####[facility] LABIA [id number] [place] [address] Monocytes (Bld) [#/Vol] 0.53 10*3/uL Normal <0.87 [facility] Comment on above: Order Comment: Speci men Type: BLOOD SPECIMENOrdering Facility: [facility] Address: [address] [place] [address] Performed By: #### 5 7021-8 ####[facility] LABCLIA [id number] [place] [address] Monocytes/100 WBC (Bld) 6.4 % Normal [facility] Comment on above: Order Comment: Speci men Type: BLOOD SPECIMENOrdering Facility: [facility] Address: [address] [place] [address] Performed By: #### 5 7021-8 ####[facility] LABCLIA [id number] [place] [address] Neutrophils (Bld) [#/Vol] 5.63 10*3/uL Normal 1.45-7.50 [facility] Comment on above: Order Comment: Speci men Type: BLOOD SPECIMENOrdering Facility: [facility] Address: [address] [place] [address] Performed By: #### 5 7021-8 ####[facility] LABCLIA [id number] [place] [address] Neutrophils/100 WBC (Bld) 67.4 % Normal [facility] Comment on above: Order Comment: Speci men Type: BLOOD SPECIMENOrdering Facility: [facility] Address: [address] [place] [address] Performed By: #### 5 7021-8 ####[facility] LABCLIA [id number] [place] [address] Nucleated RBC (Bld) [#/Vol] 10*3/uL Normal <0.01 [facility] Comment on above: Order Comment: Speci men Type: BLOOD SPECIMENOrdering Facility: [facility] Address: [address] [place] [address] Performed By: #### 5 7021-8 ####[facility] LABCLIA [id number] [place] [address] Nucleated RBC/100 WBC (Bld) [Ratio] 0.0 /100 WBC Normal [facility] Comment on above: Order Comment: Speci men Type: BLOOD SPECIMENOrdering Facility: [facility] Address: [address] [place] [address] Performed By: #### 5 7021-8 ####[facility] LABCLIA [id number] [place] [address] Platelet mean volume (Bld) [Entitic vol] 8.8 fL Low 9.0-12.7 [facility] Comment on above: Order Comment: Speci men Type: BLOOD SPECIMENOrdering Facility: [facility] Address: [address] [place] [address] Performed By: #### 5 7021-8 ####[facility] LABCLIA [id number] [place] [address] Platelets (Bld) [#/Vol] 315 10*3/uL Normal 150-400 [facility] Comment on above: Order Comment: Speci men Type: BLOOD SPECIMENOrdering Facility: [facility] Address: [address] [place] [address] Performed By: #### 5 7021-8 ####[facility] LABIA [id number] [place] [address] RBC (Bld) [#/Vol] 4.91 10*6/uL Normal 3.90-5.20 [facility] Comment on above: Order Comment: Speci men Type: BLOOD SPECIMENOrdering Facility: [facility] Address: [address] [place] [address] Performed By: #### 5 7021-8 ####[facility] LABIA [id number] [place] [address] WBC (Bld) [#/Vol] 8.34 10*3/uL Normal 3.70-11.00 [facility] Comment on above: Order Comment: Speci men Type: BLOOD SPECIMENOrdering Facility: [facility] Address: [address] [place] [address] Performed By: #### 5 7021-8 ####[facility] LABIA [id number] [place] [address] Comprehensive metabolic 2000 panelon 05-14-2022 Albumin [Mass/Vol] 4.5 g/dL Normal 3.9-4.9 [facility] Comment on above: Order Comment: Speci men Type: BLOOD SPECIMENOrdering Facility: [facility] Address: [address] [place] [address] Performed By: #### 2 4323-8 ####[facility] LABIA [id number] [place] [address] ALP [Catalytic activity/Vol] 93 U/L Normal 34-123 [facility] Comment on above: Order Comment: Speci men Type: BLOOD SPECIMENOrdering Facility: [facility] Address: [address] [address] Performed By: #### 2 4323-8 ####[facility] LABCLIA [id number] [place] [address] ALT [Catalytic activity/Vol] 57 U/L High 7-38 [facility] Comment on above: Order Comment: Speci men Type: BLOOD SPECIMENOrdering Facility: [facility] Address: [address] [address] Performed By: #### 2 4323-8 ####[facility] LABCLIA [id number] [place] [address] Anion gap [Moles/Vol] 12 mmol/L Normal 9-18 [facility] Comment on above: Order Comment: Speci men Type: BLOOD SPECIMENOrdering Facility: [facility] Address: [address] [address] Performed By: #### 2 4323-8 ####[facility] LABCLIA [id number] [place] [address] AST [Catalytic activity/Vol] 42 U/L High 13-35 [facility] Comment on above: Order Comment: Speci men Type: BLOOD SPECIMENOrdering Facility: [facility] Address: [address] [place] [address] Performed By: #### 2 4323-8 ####[facility] LABCLIA [id number] [place] [address] Bilirubin [Mass/Vol] 0.3 mg/dL Normal 0.2-1.3 [facility] Comment on above: Order Comment: Speci men Type: BLOOD SPECIMENOrdering Facility: [facility] Address: [address] [address] Performed By: #### 2 4323-8 ####[facility] LABCLIA [id number] [place] [address] Calcium [Mass/Vol] 9.9 mg/dL Normal 8.5-10.2 [facility] Comment on above: Order Comment: Speci men Type: BLOOD SPECIMENOrdering Facility: [facility] Address: [address] [place] [address] Performed By: #### 2 4323-8 ####[facility] LABCLIA [id number] [place] [address] Chloride [Moles/Vol] 103 mmol/L Normal 97-105 [facility] Comment on above: Order Comment: Speci men Type: BLOOD SPECIMENOrdering Facility: [facility] Address: [address] [place] [address] Performed By: #### 2 4323-8 ####[facility] LABCLIA [id number] [place] [address] CO2 [Moles/Vol] 25 mmol/L Normal 22-30 [facility] Comment on above: Order Comment: Speci men Type: BLOOD SPECIMENOrdering Facility: [facility] Address: [address] [place] [address] Performed By: #### 2 4323-8 ####[facility] LABCLIA [id number] [place] [address] Creatinine [Mass/Vol] 0.70 mg/dL Normal 0.58-0.96 [facility] Comment on above: Order Comment: Speci men Type: BLOOD SPECIMENOrdering Facility: [facility] Address: [address] [place] [address] Performed By: #### 2 4323-8 ####[facility] LABCLIA [id number] [place] [address] ESTIMATED GLOMERULAR FILTRATION RATE 113 mL/min/1.73m??? Normal >=60 [facility] Comment on above: Order Comment: Speci men Type: BLOOD SPECIMENOrdering Facility: [facility] Address: [address] [place] [address] Result Comment: Purnima mated Glomerular Filtration Rate [...] actual GFR. Performed By: #### 2 4323-8 ####[facility] LABCLIA [id number] [place] [address] Glucose [Mass/Vol] 138 mg/dL High 74-99 [facility] Comment on above: Order Comment: Speci men Type: BLOOD SPECIMENOrdering Facility: [facility] Address: [address] [place] [address] Result Comment: The [place] Diabetes Association (ADA) provides guidance for cutoff [...] Standards of Medical Care in Diabetes 2016, [place] [employer]. Diabetes Care. 2016.39(Suppl 1). Performed By: #### 2 4323-8 ####[facility] LABCLIA [id number] [place] [address] Potassium [Moles/Vol] 4.4 mmol/L Normal 3.7-5.1 [facility] Comment on above: Order Comment: Speci men Type: BLOOD SPECIMENOrdering Facility: [facility] Address: [address] [place], [place] [address] Performed By: #### 2 4323-8 ####[facility] LABCLIA [id number] [place] [address] Protein [Mass/Vol] 7.4 g/dL Normal 6.3-8.0 [facility] Comment on above: Order Comment: Speci men Type: BLOOD SPECIMENOrdering Facility: [facility] Address: [address] [address] Performed By: #### 2 4323-8 ####[facility] LABCLIA [id number] [place] [address] Sodium [Moles/Vol] 140 mmol/L Normal 136-144 [facility] Comment on above: Order Comment: Speci men Type: BLOOD SPECIMENOrdering Facility: [facility] Address: [address] [address] Performed By: #### 2 4323-8 ####[facility] LABCLIA [id number] [place] [address] Urea nitrogen [Mass/Vol] 19 mg/dL Normal 7-21 [facility] Comment on above: Order Comment: Speci men Type: BLOOD SPECIMENOrdering Facility: [facility] Address: [address] [address] Performed By: #### 2 4323-8 ####[facility] LABCLIA [id number] [place] [address] Lo Kenn 05-15-19 23 Cortisol [Mass/Vol] 3.5 ug/dL Low 4.8-19.5 [facility] Comment on above: Order Comment: Speci men Type: BLOOD SPECIMENOrdering Facility: [facility] Address: [address] [address] Result Comment: Prov ided reference range is from 6-10 AM sample collection time. Cortisol Reference Range: 6-10 AM = 4.8-19.5 ug/dL, 4-8 PM = 2.5-11.9 ug/dL Performed By: #### 3 016-3, 2143-6, 3024-7 ####[facility] LABCLIA [id number] [place] [id number] [place] T4 Free SerPl-mCncon 023 Free T4 [Mass/Vol] 1.1 ng/dL Normal 0.9-1.7 [facility] Comment on above: Order Comment: Nicole toribio Type: BLOOD SPECIMENOrdering Facility: [facility] Address: [address] [place], [place] [address] Performed By: #### 3 016-3, 2142-07, 3023-08 ####[facility] LABIA [id number] [address] TSH SerPl-aCncon 05-14-2022 TSH Qn 1.220 m[IU]/L Normal 0.270-4.200 [facility] Comment on above: Order Comment: Nicole toribio Type: BLOOD SPECIMENOrdering Facility: [facility] Address: [address] [place] [address] Result Comment: If t he patient is , TSH reference range varies by gestational period: First Trimester (weeks 9-12): 0.180-2.990 mIU/L Second Trimester: 0.110-3.980 mIU/L Third Trimester: 0.480-4.710 mIU/L Samuel Patel et al. A Practical Approach for the Verifications and Determination of Site- and Trimester-Specific Reference Intervals for Thyroid Function tests in . Thyroid, 2019:29:3:412-420. Mirza E, et al. 2017 Guidelines of the [place] Thyroid Association for the Diagnosis and Management of Thyroid Disease during and the . Thyroid, 2017:27:3:315-389. Performed By: #### 3 016-3, 6, 3023-08 ####[facility] LABIA [id number] [address] [id number] [place] CBC W Auto Differential pane l (Bld)on 04-30-2022 Basophils (Bld) [#/Vol] 0.03 10*3/uL Normal <0.11 [facility] Comment on above: Order Comment: Nicole toribio Type: BLOOD SPECIMENOrdering Facility: [facility] Address: [address] [address] Performed By: #### 5 7021-8 ####[facility] LABCLIA [id number] [place] [address] Basophils/100 WBC (Bld) 0.4 % Normal [facility] Comment on above: Order Comment: Speci men Type: BLOOD SPECIMENOrdering Facility: [facility] Address: [address] [place] [address] Performed By: #### 5 7021-8 ####[facility] LABCLIA [id number] [place] [address] Differential cell count method Nom (Bld) Auto Normal [facility] Comment on above: Order Comment: Speci men Type: BLOOD SPECIMENOrdering Facility: [facility] Address: [address] [place] [address] Performed By: #### 5 7021-8 ####[facility] LABCLIA [id number] [place] [address] Eosinophils (Bld) [#/Vol] 0.27 10*3/uL Normal <0.46 [facility] Comment on above: Order Comment: Speci men Type: BLOOD SPECIMENOrdering Facility: [facility] Address: [address] [place] [address] Performed By: #### 5 7021-8 ####[facility] LABCLIA [id number] [place] [address] Eosinophils/100 WBC (Bld) 3.4 % Normal [facility] Comment on above: Order Comment: Speci men Type: BLOOD SPECIMENOrdering Facility: [facility] Address: [address] [place] [address] Performed By: #### 5 7021-8 ####[facility] LABCLIA [id number] [place] [address] Erythrocyte distribution width (RBC) [Ratio] 13.5 % Normal 11.5-15.0 [facility] Comment on above: Order Comment: Speci men Type: BLOOD SPECIMENOrdering Facility: [facility] Address: [address] [address] Performed By: #### 5 7021-8 ####[facility] LABCLIA [id number] [place] [address] Hematocrit (Bld) [Volume fraction] 43.8 % Normal 36.0-46.0 [facility] Comment on above: Order Comment: Speci men Type: BLOOD SPECIMENOrdering Facility: [facility] Address: [address] [address] Performed By: #### 5 7021-8 ####[facility] LABCLIA [id number] [place] [address] Hemoglobin (Bld) [Mass/Vol] 14.6 g/dL Normal 11.5-15.5 [facility] Comment on above: Order Comment: Speci men Type: BLOOD SPECIMENOrdering Facility: [facility] Address: [address] [address] Performed By: #### 5 7021-8 ####[facility] LABCLIA [id number] [place] [address] Immature granulocytes (Bld) [#/Vol] 0.03 10*3/uL Normal <0.10 [facility] Comment on above: Order Comment: Speci men Type: BLOOD SPECIMENOrdering Facility: [facility] Address: [address] [address] Performed By: #### 5 7021-8 ####[facility] LABCLIA [id number] [place] [address] Immature granulocytes/100 WBC (Bld) 0.4 % Normal [facility] Comment on above: Order Comment: Speci men Type: BLOOD SPECIMENOrdering Facility: [facility] Address: [address] [address] Performed By: #### 5 7021-8 ####[facility] LABCLIA [id number] [place] [address] Lymphocytes (Bld) [#/Vol] 1.85 10*3/uL Normal 1.00-4.00 [facility] Comment on above: Order Comment: Speci men Type: BLOOD SPECIMENOrdering Facility: [facility] Address: [address] [place] [address] Performed By: #### 5 7021-8 ####[facility] LABCLIA [id number] [place] [address] Lymphocytes/100 WBC (Bld) 23.5 % Normal [facility] Comment on above: Order Comment: Speci men Type: BLOOD SPECIMENOrdering Facility: [facility] Address: [address] [place] [address] Performed By: #### 5 7021-8 ####[facility] LABCLIA [id number] [place] [address] MCH (RBC) [Entitic mass] 31.8 pg Normal 26.0-34.0 [facility] Comment on above: Order Comment: Speci men Type: BLOOD SPECIMENOrdering Facility: [facility] Address: [address] [place] [address] Performed By: #### 5 7021-8 ####[facility] LABCLIA [id number] [place] [address] MCHC (RBC) [Mass/Vol] 33.3 g/dL Normal 30.5-36.0 [facility] Comment on above: Order Comment: Speci men Type: BLOOD SPECIMENOrdering Facility: [facility] Address: [address] [place] [address] Performed By: #### 5 7021-8 ####[facility] LABCLIA [id number] [place] [address] MCV (RBC) [Entitic vol] 95.4 fL Normal 80.0-100.0 [facility] Comment on above: Order Comment: Speci men Type: BLOOD SPECIMENOrdering Facility: [facility] Address: [address] [address] Performed By: #### 5 7021-8 ####[facility] LABCLIA [id number] [place] [address] Monocytes (Bld) [#/Vol] 0.64 10*3/uL Normal <0.87 [facility] Comment on above: Order Comment: Speci men Type: BLOOD SPECIMENOrdering Facility: [facility] Address: [address] [address] Performed By: #### 5 7021-8 ####[facility] LABCLIA [id number] [place] [address] Monocytes/100 WBC (Bld) 8.1 % Normal [facility] Comment on above: Order Comment: Speci men Type: BLOOD SPECIMENOrdering Facility: [facility] Address: [address] [place] [address] Performed By: #### 5 7021-8 ####[facility] LABCLIA [id number] [place] [address] Neutrophils (Bld) [#/Vol] 5.04 10*3/uL Normal 1.45-7.50 [facility] Comment on above: Order Comment: Speci men Type: BLOOD SPECIMENOrdering Facility: [facility] Address: [address] [place] [address] Performed By: #### 5 7021-8 ####[facility] LABCLIA [id number] [place] [address] Neutrophils/100 WBC (Bld) 64.2 % Normal [facility] Comment on above: Order Comment: Speci men Type: BLOOD SPECIMENOrdering Facility: [facility] Address: [address] [place] [address] Performed By: #### 5 7021-8 ####[facility] LABCLIA [id number] [place] [address] Nucleated RBC (Bld) [#/Vol] 10*3/uL Normal <0.01 [facility] Comment on above: Order Comment: Speci men Type: BLOOD SPECIMENOrdering Facility: [facility] Address: [address] [place] [address] Performed By: #### 5 7021-8 ####[facility] LABCLIA [id number] [place] [address] Nucleated RBC/100 WBC (Bld) [Ratio] 0.0 /100 WBC Normal [facility] Comment on above: Order Comment: Speci men Type: BLOOD SPECIMENOrdering Facility: [facility] Address: [address] [place] [address] Performed By: #### 5 7021-8 ####[facility] LABCLIA [id number] [place] [address] Platelet mean volume (Bld) [Entitic vol] 8.9 fL Low 9.0-12.7 [facility] Comment on above: Order Comment: Speci men Type: BLOOD SPECIMENOrdering Facility: [facility] Address: [address] [place] [address] Performed By: #### 5 7021-8 ####[facility] LABCLIA [id number] [place] [address] Platelets (Bld) [#/Vol] 289 10*3/uL Normal 150-400 [facility] Comment on above: Order Comment: Speci men Type: BLOOD SPECIMENOrdering Facility: [facility] Address: [address] [place] [address] Performed By: #### 5 7021-8 ####[facility] LABIA [id number] [place] [address] RBC (Bld) [#/Vol] 4.59 10*6/uL Normal 3.90-5.20 [facility] Comment on above: Order Comment: Speci men Type: BLOOD SPECIMENOrdering Facility: [facility] Address: [address] [address] Performed By: #### 5 7021-8 ####[facility] LABCLIA [id number] [place] [address] WBC (Bld) [#/Vol] 7.86 10*3/uL Normal 3.70-11.00 [facility] Comment on above: Order Comment: Speci men Type: BLOOD SPECIMENOrdering Facility: [facility] Address: [address] [place] [address] Performed By: #### 5 7021-8 ####[facility] LABCLIA [id number] [place] [address] Comprehensive metabolic 2000 panelon 04-30-2022 Albumin [Mass/Vol] 4.3 g/dL Normal 3.9-4.9 [facility] Comment on above: Order Comment: Speci men Type: BLOOD SPECIMENOrdering Facility: [facility] Address: [address] [place] [address] Performed By: #### 2 4323-8 ####[facility] LABCLIA [id number] [place] [address] ALP [Catalytic activity/Vol] 99 U/L Normal 34-123 [facility] Comment on above: Order Comment: Speci men Type: BLOOD SPECIMENOrdering Facility: [facility] Address: [address] [place] [address] Performed By: #### 2 4323-8 ####[facility] LABCLIA [id number] [place] [address] ALT [Catalytic activity/Vol] 50 U/L High 7-38 [facility] Comment on above: Order Comment: Speci men Type: BLOOD SPECIMENOrdering Facility: [facility] Address: [address] [place] [address] Performed By: #### 2 4323-8 ####[facility] LABCLIA [id number] [place] [address] Anion gap [Moles/Vol] 7 mmol/L Low 9-18 [facility] Comment on above: Order Comment: Speci men Type: BLOOD SPECIMENOrdering Facility: [facility] Address: [address] [place] [address] Performed By: #### 2 4323-8 ####[facility] LABCLIA [id number] [place] [address] AST [Catalytic activity/Vol] 43 U/L High 13-35 [facility] Comment on above: Order Comment: Speci men Type: BLOOD SPECIMENOrdering Facility: [facility] Address: [address] [place] [address] Performed By: #### 2 4323-8 ####[facility] LABCLIA [id number] [place] [address] Bilirubin [Mass/Vol] 0.3 mg/dL Normal 0.2-1.3 [facility] Comment on above: Order Comment: Speci men Type: BLOOD SPECIMENOrdering Facility: [facility] Address: [address] [place] [address] Performed By: #### 2 4323-8 ####[facility] LABCLIA [id number] [place] [address] Calcium [Mass/Vol] 10.0 mg/dL Normal 8.5-10.2 [facility] Comment on above: Order Comment: Speci men Type: BLOOD SPECIMENOrdering Facility: [facility] Address: [address] [address] Performed By: #### 2 4323-8 ####[facility] LABCLIA [id number] [place] [address] Chloride [Moles/Vol] 102 mmol/L Normal 97-105 [facility] Comment on above: Order Comment: Speci men Type: BLOOD SPECIMENOrdering Facility: [facility] Address: [address] [place] [address] Performed By: #### 2 4323-8 ####[facility] LABCLIA [id number] [place] [address] CO2 [Moles/Vol] 29 mmol/L Normal 22-30 [facility] Comment on above: Order Comment: Speci men Type: BLOOD SPECIMENOrdering Facility: [facility] Address: [address] [place] [address] Performed By: #### 2 4323-8 ####[facility] LABCLIA [id number] [place] [address] Creatinine [Mass/Vol] 0.69 mg/dL Normal 0.58-0.96 [facility] Comment on above: Order Comment: Speci men Type: BLOOD SPECIMENOrdering Facility: [facility] Address: [address] [place] [address] Performed By: #### 2 4323-8 ####[facility] LABCLIA [id number] [place] [address] ESTIMATED GLOMERULAR FILTRATION RATE 113 mL/min/1.73m??? Normal >=60 [facility] Comment on above: Order Comment: Speci men Type: BLOOD SPECIMENOrdering Facility: [facility] Address: [address] [place] [address] Result Comment: Purnima mated Glomerular Filtration Rate [...] actual GFR. Performed By: #### 2 4323-8 ####[facility] LABCLIA [id number] [place] [address] Glucose [Mass/Vol] 112 mg/dL High 74-99 [facility] Comment on above: Order Comment: Speci men Type: BLOOD SPECIMENOrdering Facility: [facility] Address: [address] [place], [place] [address] Result Comment: The [place] Diabetes Association (ADA) provides guidance for cutoff [...] Standards of Medical Care in Diabetes 2016, [place] [employer]. Diabetes Care. 2016.39(Suppl 1). Performed By: #### 2 4323-8 ####[facility] LABCLIA [id number] [place] [address] Potassium [Moles/Vol] 4.6 mmol/L Normal 3.7-5.1 [facility] Comment on above: Order Comment: Speci men Type: BLOOD SPECIMENOrdering Facility: [facility] Address: [address] [address] Performed By: #### 2 4323-8 ####[facility] LABCLIA [id number] [place] [address] Protein [Mass/Vol] 6.9 g/dL Normal 6.3-8.0 [facility] Comment on above: Order Comment: Speci men Type: BLOOD SPECIMENOrdering Facility: [facility] Address: [address] [address] Performed By: #### 2 4323-8 ####[facility] LABCLIA [id number] [place] [address] Sodium [Moles/Vol] 138 mmol/L Normal 136-144 [facility] Comment on above: Order Comment: Speci men Type: BLOOD SPECIMENOrdering Facility: [facility] Address: [address] [address] Performed By: #### 2 4323-8 ####[facility] LABCLIA [id number] [place] [address] Urea nitrogen [Mass/Vol] 12 mg/dL Normal 7-21 [facility] Comment on above: Order Comment: Speci men Type: BLOOD SPECIMENOrdering Facility: [facility] Address: [address] [place] [address] Performed By: #### 2 4323-8 ####[facility] LABCLIA [id number] [place] [address] T4 Free SerPl-mCncon 023 Free T4 [Mass/Vol] 1.0 ng/dL Normal 0.9-1.7 [facility] Comment on above: Order Comment: Speci men Type: BLOOD SPECIMENOrdering Facility: [facility] Address: [address] [place] [address] Performed By: #### 3 024-7, 3016-3 ####[facility] LABCLIA [id number] [place] [address] [place] TSH SerPl-aCncon 04-30-2022 TSH Qn 1.580 m[IU]/L Normal 0.270-4.200 [facility] Comment on above: Order Comment: Speci men Type: BLOOD SPECIMENOrdering Facility: [facility] Address: [address] [place] [address] Result Comment: If t he patient is , TSH reference range varies by gestational period: First Trimester (weeks 9-12): 0.180-2.990 mIU/L Second Trimester: 0.110-3.980 mIU/L Third Trimester: 0.480-4.710 mIU/L Samuel Patel et al. A Practical Approach for the Verifications and Determination of Site- and Trimester-Specific Reference Intervals for Thyroid Function tests in . Thyroid, 2019:29:3:412-420. Mirza Lopes et al. 2017 Guidelines of the [place] Thyroid Association for the Diagnosis and Management of Thyroid Disease during and the . Thyroid, 2017:27:3:315-389. Performed By: #### 3 024-7, 3016-3 ####[facility] CHIDI [id number] [address] [facility] Varun 04-25-2022 CNPN Telephone (RADTMN) CELSO POTTS ([id number]) 1980 F TRN Date Time Provider Department [...] questions or concerns or Radiation Oncology Fellow Can Feeder after 5pm and on weekends for urgent [...] Reviewed: 04/23/2022 Reviewed by: Juan Francisco Hutchinson APRN.STATE COMP[employer]ER - Fully Assessed Reason for Visit: Post Radiation Treatment Follow Up [[id number]] Cmt: Second attempt Prescriptions as of 04/25/2022 [...] C No.3 (B COMPLEX PLUS VITAMIN C) 35-97-76-5-300 mg cap Take 1 tablet by mouth [...] to chacho (more content not included)... Normal [facility] CNOVon 04-23-2022 [facility] CELSO POTTS ([id number]) 1980 F TRN Date Time Provider Department 04/23/22 10:00 AM JU[facility] FRANCISCO [facility]UTCHIN[facility] During your visit today, we recorded the [...] as weather changes to spring. Modified ESAS ([place] Symptom Assessment Scale) Information Provided By: Patient [...] was identified. 04/23/2022 by Juan Francisco Hutchinson APRN.[employer] Urine Screen Lab Results Component Value Date UAMPH Negative 02/24/2021 UBARB2 Negative 02/24/2021 UBENZ Negative 02/24/2021 UQBUPRE <20 01/25/2022 UQNOR (more content not included)... Normal [facility] CNPNon 04-20-2022 CNPN Telephone (RADTMN) CELSO POTTS ([id number]) 1980 F TRN Date Time Provider Department [...] Sarah Carranza, RN Allergies As of Date: 04/20/2022 Noted Allergy Reaction CHLORHEXIDINE 03/11/2013 9 - Itching Comments: Severe skin irritation. Had used for central line care SULFA (SULFONAMIDE ANTIBIOTICS) 01/07/2012 2 - Rash Date Reviewed: 04/10/2022 Reviewed by: Gertrudis Smith RN - Fully Assessed Reason for Visit: Post Radiation Treatment Follow Up [[id number]] Prescriptions as of 04/20/2022 - cyclobenzaprine (FLEXERIL) [...] C No.3 (B COMPLEX PLUS VITAMIN C) 29-59-04-5-300 mg cap Take 1 tablet by mouth [...] prophylaxis [Z79.899 (more content not included)... Normal [facility] CNOVSPon 04-10-2022 CNOVSP Visit (SP) Office (HEMAVN) CELSO POTTS ([id number]) 1980 F TRN Date Time Provider Department [...] to grade III pneumonitis She saw Dr. Alejanrdo sarmiento at [facility] for 2nd opinion cell([id number]) She agreed with out plan and recommended [...] SURGICAL H (more content not included)... Normal [facility] CBC W Auto Differential pane l (Bld)on 04-06-2022 Basophils (Bld) [#/Vol] 0.03 10*3/uL Normal <0.11 [facility] Comment on above: Order Comment: Speci men Type: BLOOD SPECIMENOrdering Facility: [facility] Address: [address] [place] [address] Performed By: #### 5 7021-8 ####[facility] [id number] [place] [address] [place] Basophils/100 WBC (Bld) 0.5 % Normal [facility] Comment on above: Order Comment: Speci men Type: BLOOD SPECIMENOrdering Facility: [facility] Address: [address] [place] [address] Performed By: #### 5 7021-8 ####[facility] [id number] [place] [address] [place] Differential cell count method Nom (Bld) Auto Normal [facility] Comment on above: Order Comment: Speci men Type: BLOOD SPECIMENOrdering Facility: [facility] Address: [address] [place] [address] Performed By: #### 5 7021-8 ####[facility] [id number] [place] [address] [place] Eosinophils (Bld) [#/Vol] 0.20 10*3/uL Normal <0.46 [facility] Comment on above: Order Comment: Speci men Type: BLOOD SPECIMENOrdering Facility: [facility] Address: [address] [place] [address] Performed By: #### 5 7021-8 ####[facility] [id number] [place] [address] [place] Eosinophils/100 WBC (Bld) 3.3 % Normal [facility] Comment on above: Order Comment: Speci men Type: BLOOD SPECIMENOrdering Facility: [facility] Address: [address] [place] [address] Performed By: #### 5 7021-8 ####[facility] [place] [id number] [place] [address] [place] Erythrocyte distribution width (RBC) [Ratio] 13.1 % Normal 11.5-15.0 [facility] Comment on above: Order Comment: Speci men Type: BLOOD SPECIMENOrdering Facility: [facility] Address: [address] [place] [address] Performed By: #### 5 7021-8 ####[facility] [place] [id number] [place] [address] [place] Hematocrit (Bld) [Volume fraction] 47.7 % High 36.0-46.0 [facility] Comment on above: Order Comment: Speci men Type: BLOOD SPECIMENOrdering Facility: [facility] Address: [address] [place] [address] Performed By: #### 5 7021-8 ####[facility] [id number] [place] [address] [place] Hemoglobin (Bld) [Mass/Vol] 15.8 g/dL High 11.5-15.5 [facility] Comment on above: Order Comment: Speci men Type: BLOOD SPECIMENOrdering Facility: [facility] Address: [address] [place] [address] Performed By: #### 5 7021-8 ####[facility] [id number] [place] [address] [place] Immature granulocytes (Bld) [#/Vol] 10*3/uL Normal <0.10 [facility] Comment on above: Order Comment: Speci men Type: BLOOD SPECIMENOrdering Facility: [facility] Address: [address] [address] Performed By: #### 5 7021-8 ####[facility] [id number] [address] STATES [facility] Immature granulocytes/100 WBC (Bld) 0.3 % Normal [facility] Comment on above: Order Comment: Speci men Type: BLOOD SPECIMENOrdering Facility: [facility] Address: [address] [place] [address] Performed By: #### 5 7021-8 ####[facility] [place] [id number] [place] [address] [place] Lymphocytes (Bld) [#/Vol] 1.61 10*3/uL Normal 1.00-4.00 [facility] Comment on above: Order Comment: Speci men Type: BLOOD SPECIMENOrdering Facility: [facility] Address: [address] [place] [address] Performed By: #### 5 7021-8 ####[facility] [place] [id number] [place] [address] [place] [facility] Lymphocytes/100 WBC (Bld) 26.5 % Normal [facility] Comment on above: Order Comment: Speci men Type: BLOOD SPECIMENOrdering Facility: [facility] Address: [address] Performed By: #### 5 7021-8 ####[facility] [id number] [place] [address] [place] MCH (RBC) [Entitic mass] 31.3 pg Normal 26.0-34.0 [facility] Comment on above: Order Comment: Speci men Type: BLOOD SPECIMENOrdering Facility: [facility] Address: [address] Performed By: #### 5 7021-8 ####[facility] [id number] [address] STATES [facility] MCHC (RBC) [Mass/Vol] 33.1 g/dL Normal 30.5-36.0 [facility] Comment on above: Order Comment: Speci men Type: BLOOD SPECIMENOrdering Facility: [facility] Address: [address] [place], [place] [address] Performed By: #### 5 7021-8 ####[facility] [id number] [place] [address] [place] MCV (RBC) [Entitic vol] 94.5 fL Normal 80.0-100.0 [facility] Comment on above: Order Comment: Speci men Type: BLOOD SPECIMENOrdering Facility: [facility] Address: [address] [place], [place] [address] Performed By: #### 5 7021-8 ####[facility] [place] [id number] [place] [address] [place] Monocytes (Bld) [#/Vol] 0.62 10*3/uL Normal <0.87 [facility] Comment on above: Order Comment: Speci men Type: BLOOD SPECIMENOrdering Facility: [facility] Address: [address] [place], [place] [address] Performed By: #### 5 7021-8 ####[facility] [id number] [address] [place] [facility] Monocytes/100 WBC (Bld) 10.2 % Normal [facility] Comment on above: Order Comment: Speci men Type: BLOOD SPECIMENOrdering Facility: [facility] Address: [address] [place], [place] [address] Performed By: #### 5 7021-8 ####[facility] [id number] [place] [address] [place] Neutrophils (Bld) [#/Vol] 3.59 10*3/uL Normal 1.45-7.50 [facility] Comment on above: Order Comment: Speci men Type: BLOOD SPECIMENOrdering Facility: [facility] Address: [address] [place] [address] Performed By: #### 5 7021-8 ####[facility] [id number] [place] [address] [place] Neutrophils/100 WBC (Bld) 59.2 % Normal [facility] Comment on above: Order Comment: Speci men Type: BLOOD SPECIMENOrdering Facility: [facility] Address: [address] [place] [address] Performed By: #### 5 7021-8 ####[facility] [id number] [place] [address] [place] Nucleated RBC (Bld) [#/Vol] 10*3/uL Normal <0.01 [facility] Comment on above: Order Comment: Speci men Type: BLOOD SPECIMENOrdering Facility: [facility] Address: [address] [place] [address] Performed By: #### 5 7021-8 ####[facility] [id number] [place] [address] [place] Nucleated RBC/100 WBC (Bld) [Ratio] 0.0 /100 WBC Normal [facility] Comment on above: Order Comment: Speci men Type: BLOOD SPECIMENOrdering Facility: [facility] Address: [address] [place] [address] Performed By: #### 5 7021-8 ####[facility] [id number] [place] [address] [place] Platelet mean volume (Bld) [Entitic vol] 8.6 fL Low 9.0-12.7 [facility] Comment on above: Order Comment: Speci men Type: BLOOD SPECIMENOrdering Facility: [facility] Address: [address] [place] [address] Performed By: #### 5 7021-8 ####[facility] [id number] [address] Platelets (Bld) [#/Vol] 278 10*3/uL Normal 150-400 [facility] Comment on above: Order Comment: Speci men Type: BLOOD SPECIMENOrdering Facility: [facility] Address: [address] [place] [address] Performed By: #### 5 7021-8 ####[facility] [id number] [address] RBC (Bld) [#/Vol] 5.05 10*6/uL Normal 3.90-5.20 [facility] Comment on above: Order Comment: Speci men Type: BLOOD SPECIMENOrdering Facility: [facility] Address: [address] [place] [address] Performed By: #### 5 7021-8 ####[facility] [place] [id number] [address] WBC (Bld) [#/Vol] 6.07 10*3/uL Normal 3.70-11.00 [facility] Comment on above: Order Comment: Speci men Type: BLOOD SPECIMENOrdering Facility: [facility] Address: [address] [place] [address] Performed By: #### 5 7021-8 ####[facility] [id number] [address] CNOVon 04-06-2022 CNOV Office Visit (DAVIDN ) CELSO POTTS ([id number]) 1980 F TRN Date Time Provider Department [...] weeks. Acute and delayed side effects reviewed. Gus Patricio MD Radiation Oncology Resident (PGY-5) [id number] I have personally participated in the osorio [...] C No.3 (B COMPLEX PLUS VITAMIN C) 88-96-71-5-300 mg cap Take 1 tablet by mouth once daily. - Dexlansoprazole (DEXILANT) 30 mg CpDM Take 1 capsule by mouth once daily. - Lactobac no.41/Bifido (more content not included)... Normal [facility] Comprehensive metabolic 2000 panelon 04-06-2022 Albumin [Mass/Vol] 4.1 g/dL Normal 3.9-4.9 [facility] Comment on above: Order Comment: Speci men Type: BLOOD SPECIMENOrdering Facility: [facility] Address: [address] [address] Performed By: #### 2 4323-8 ####[facility] [id number] [place] [address] [place] ALP [Catalytic activity/Vol] 71 U/L Normal 34-123 [facility] Comment on above: Order Comment: Speci men Type: BLOOD SPECIMENOrdering Facility: [facility] Address: [address] [address] Performed By: #### 2 4323-8 ####[facility] [place] [id number] [place] [address] [place] ALT [Catalytic activity/Vol] 66 U/L High 7-38 [facility] Comment on above: Order Comment: Speci men Type: BLOOD SPECIMENOrdering Facility: [facility] Address: [address] [place], [place] [address] Performed By: #### 2 4323-8 ####[facility] [id number] [place] [address] [place] Anion gap [Moles/Vol] 7 mmol/L Low 9-18 [facility] Comment on above: Order Comment: Speci men Type: BLOOD SPECIMENOrdering Facility: [facility] Address: [address] [place] [address] Performed By: #### 2 4323-8 ####[facility] [id number] [place] [address] [place] AST [Catalytic activity/Vol] 61 U/L High 13-35 [facility] Comment on above: Order Comment: Speci men Type: BLOOD SPECIMENOrdering Facility: [facility] Address: [address] [place] [address] Performed By: #### 2 4323-8 ####[facility] [id number] [place] [address] [place] Bilirubin [Mass/Vol] 0.3 mg/dL Normal 0.2-1.3 [facility] Comment on above: Order Comment: Speci men Type: BLOOD SPECIMENOrdering Facility: [facility] Address: [address] [place], [place] [address] Performed By: #### 2 4323-8 ####[facility] [id number] [place] [address] [place] Calcium [Mass/Vol] 9.7 mg/dL Normal 8.5-10.2 [facility] Comment on above: Order Comment: Speci men Type: BLOOD SPECIMENOrdering Facility: [facility] Address: [address] [place], [place] [address] Performed By: #### 2 4323-8 ####[facility] [id number] [place] [id number] Chloride [Moles/Vol] 103 mmol/L Normal 97-105 [facility] Comment on above: Order Comment: Speci men Type: BLOOD SPECIMENOrdering Facility: [facility] Address: [address] [place] [address] Performed By: #### 2 4323-8 ####[facility] [id number] [address] [place] CO2 [Moles/Vol] 30 mmol/L Normal 22-30 [facility] Comment on above: Order Comment: Speci men Type: BLOOD SPECIMENOrdering Facility: [facility] Address: [address] [place] [address] Performed By: #### 2 4323-8 ####[facility] [place] [id number] [place] [address] Creatinine [Mass/Vol] 0.73 mg/dL Normal 0.58-0.96 [facility] Comment on above: Order Comment: Speci men Type: BLOOD SPECIMENOrdering Facility: [facility] Address: [address] [place] [address] Performed By: #### 2 4323-8 ####[facility] [id number] [place] [address] ESTIMATED GLOMERULAR FILTRATION RATE 107 mL/min/1.73m??? Normal >=60 [facility] Comment on above: Order Comment: Speci men Type: BLOOD SPECIMENOrdering Facility: [facility] Address: [address] [place] [address] Result Comment: Purnima mated Glomerular Filtration Rate [...] By: #### 2 4323-8 ####[facility] [id number] [place] [address] [place] Glucose [Mass/Vol] 103 mg/dL High 74-99 [facility] Comment on above: Order Comment: Speci men Type: BLOOD SPECIMENOrdering Facility: [facility] Address: [address] [place] [address] Result Comment: The [place] [employer] (ADA) provides guidance for cutoff [...] Standards of Medical Care in Diabetes 2016, [place] [employer]. Diabetes Care. 2016.39(Suppl 1). Performed By: #### 2 4323-8 ####[facility] [id number] [place] [address] [place] Potassium [Moles/Vol] 4.8 mmol/L Normal 3.7-5.1 [facility] Comment on above: Order Comment: Speci men Type: BLOOD SPECIMENOrdering Facility: [facility] Address: [address] [place] [address] Performed By: #### 2 4323-8 ####[facility] [id number] [place] [address] [place] Protein [Mass/Vol] 7.4 g/dL Normal 6.3-8.0 [facility] Comment on above: Order Comment: Speci men Type: BLOOD SPECIMENOrdering Facility: [facility] Address: [address] [place] [address] Performed By: #### 2 4323-8 ####[facility] [place] [id number] [place] [address] [place] Sodium [Moles/Vol] 140 mmol/L Normal 136-144 [facility] Comment on above: Order Comment: Speci men Type: BLOOD SPECIMENOrdering Facility: [facility] Address: [address] [place] [address] Performed By: #### 2 4323-8 ####[facility] [id number] [place] [address] [place] Urea nitrogen [Mass/Vol] 13 mg/dL Normal 7-21 [facility] Comment on above: Order Comment: Speci men Type: BLOOD SPECIMENOrdering Facility: [facility] Address: [address] [place] [address] Performed By: #### 2 4323-8 ####[facility] [id number] [place] [address] [place] Cortis SerPl-mCncon 04-06-19 23 Cortisol [Mass/Vol] 5.4 ug/dL Normal 4.8-19.5 [facility] Comment on above: Order Comment: Speci men Type: BLOOD SPECIMENOrdering Facility: [facility] Address: [address] [place] [address] Result Comment: Prov ided reference range is from 6-10 AM sample collection time. Cortisol Reference Range: 6-10 AM = 4.8-19.5 ug/dL, 4-8 PM = 2.5-11.9 ug/dL Performed By: #### 3 016-3, 3024-7, 2143-6 ####[facility] [id number] [place] [address] [place] T4 Free SerPl-mCncon 023 Free T4 [Mass/Vol] 1.1 ng/dL Normal 0.9-1.7 [facility] Comment on above: Order Comment: Speci men Type: BLOOD SPECIMENOrdering Facility: [facility] Address: [address] [place] [address] Performed By: #### 3 016-3, 3024-7, 3-6 ####[facility] [id number] [place] [id number] [place] TSH SerPl-aCncon 04-06-2022 TSH Qn 2.140 m[IU]/L Normal 0.270-4.200 [facility] Comment on above: Order Comment: Speci men Type: BLOOD SPECIMENOrdering Facility: [facility] Address: [address] [place] [address] Result Comment: If t he patient is , TSH reference range varies by gestational period: First Trimester (weeks 9-12): 0.180-2.990 mIU/L Second Trimester: 0.110-3.980 mIU/L Third Trimester: 0.480-4.710 mIU/L Samuel Patel et al. A Practical Approach for the Verifications and Determination of Site- and Trimester-Specific Reference Intervals for Thyroid Function tests in . Thyroid, 2019:29:3:412-420. Mirza Lopes, et al. 2017 Guidelines of the [place] Thyroid Association for the Diagnosis and Management of Thyroid Disease during and the . Thyroid, 2017:27:3:315-389. Performed By: #### 3 016-3, 3024-7, 3-6 ####[facility] [id number] [place] [id number] [place] CNOVon 01-25-2022 CNOV Office Visit (CNFVM) CELSO POTTS ([id number]) 1980 F TRN Date Time Provider Department 01/25/22 2:30 PM JUAN FRANCISCO HUTCHINSON CNFVM During your visit today, we recorded the [...] treadmill. She will be meeting with a animal attendants and trainers to better understand the equipment upcoming. Has had some nausea since starting doxy for acne. Responsive to Compazine. Modified ESAS ([place] Symptom Assessment Scale) Information Provided By: Patient [...] was identified. 01/25/2022 by Juan Francisco Hutchinson APRN.[facility] Urine Screen Lab Results Component Value Date UAMPH Negative 02/24/2021 UBARB2 Negative 02/24/2021 UBENZ Negative 02/24/2021 UQBUPRE <20 02/24/2021 UQNORBUP <20 02/24/2021 UCOC2 Negative 02/24/2021 UQCANN <16 02/24/2021 UOPI Negative 02/24/2021 UOXYC Negative 02/24/2021 UPCP Negative 02/24/2021 UTHC Negative 02/24/2021 UETOH <11 0 (more content not included)... Normal [facility] PAIN PANEL, UR QUANTon 01-25 0-Sibgdypwkd-0,5-Di methyl-3,3-Diphenyl pyrrolidine (EDDP) Confirm (U) [Mass/Vol] <6 Normal <6 [facility] Comment on above: Order Comment: Speci men Type: URINE SPECIMEN [facility] Address: [address] [address] Result Comment: EDDP is a metabolite of methadone. Performed By: #### L [id number] #### [facility] CLIA [id number] [address] [place] [address] [place] 6-Monoacetylmorphin e (6-BERNIE) (U) [Mass/Vol] <5 Normal <5 [facility] Comment on above: Order Comment: Speci men Type: URINE SPECIMEN [facility] Address: [address] [place] [address] Result Comment: 6-MA M (6-monoacetylmorphine, also known as 6-acetylmorphine) is a unique metabolite of heroin. Presence of 6-BERNIE indicates use of heroin. 6-BERNIE is further metabolized to morphine and absence of 6-BERNIE does not rule out the use of heroin. Performed By: #### L [id number] #### [facility] CLIA [id number] [address] [place] [address] [place] Amphetamine Confirm (U) [Mass/Vol] <5 Normal <5 [facility] Comment on above: Order Comment: Speci men Type: URINE SPECIMEN [facility] Address: [address] [place] [address] Performed By: #### L [id number] #### [facility] CLIA [id number] [address] [place] [address] [place] Benzoylecgonine Confirm (U) [Mass/Vol] <24 Normal <24 [facility] Comment on above: Order Comment: Speci men Type: URINE SPECIMEN [facility] Address: [address] [address] Result Comment: Henry oylecgonine is a metabolite of cocaine. Performed By: #### L [id number] #### [facility] CLIA [id number] [address] [place] [address] [place] Buprenorphine (U) [Mass/Vol] <20 Normal <20 [facility] Comment on above: Order Comment: Speci men Type: URINE SPECIMEN [facility] Address: [address] [place] [address] Performed By: #### L [id number] #### [facility] [place] [id number] [address] [place] [address] [place] Cannabinoids Confirm (U) [Mass/Vol] <16 Normal <16 [facility] Comment on above: Order Comment: Speci men Type: URINE SPECIMEN [facility] Address: [address] [place] [address] Result Comment: Tetr ahydrocannabinol carboxylic acid (THCA) is a metabolite of lbgjc-8-qjnnzbgumylictqjmdsx which is the main active component of marijuana. Performed By: #### L [id number] #### [facility] CLIA [id number] [address] [place] [address] [place] Codeine Confirm (U) [Mass/Vol] <11 Normal <11 [facility] Comment on above: Order Comment: Speci men Type: URINE SPECIMEN [facility] Address: [address] [place] [address] Performed By: #### L [id number] #### [facility] CLIA [id number] [address] [place] [address] [place] Dihydrocodeine Confirm (U) [Mass/Vol] <5 Normal <5 [facility] Comment on above: Order Comment: Speci men Type: URINE SPECIMEN [facility] Address: [address] [address] Performed By: #### L [id number] #### [facility] CLIA [id number] [address] [place] [address] fentaNYL Confirm (U) [Mass/Vol] <6 Normal <6 [facility] Comment on above: Order Comment: Speci men Type: URINE SPECIMEN [facility] Address: [address] [address] Performed By: #### L [id number] #### [facility] CLIA [id number] [address] [place] [address] HYDROcodone Confirm (U) [Mass/Vol] <8 Normal <8 [facility] Comment on above: Order Comment: Speci men Type: URINE SPECIMEN [facility] Address: [address] [place] [address] Result Comment: Hydr ocodone is a metabolite of dihydrocodeine. Performed By: #### L [id number] #### [facility] [place] [id number] [address] [place] [address] HYDROmorphone Confirm (U) [Mass/Vol] <5 Normal <5 [facility] Comment on above: Order Comment: Speci men Type: URINE SPECIMEN Ordering Facility: [facility] Address: [address] [place], [place] [address] Result Comment: Hydr omorphone is a metabolite of hydrocodone. Performed By: #### L [id number] #### [facility] CLIA [id number] [address] [place] [address] Methadone Confirm (U) [Mass/Vol] <16 Normal <16 [facility] Comment on above: Order Comment: Speci men Type: URINE SPECIMEN Ordering Facility: [facility] Address: [address] [place] [address] Performed By: #### L [id number] #### [facility] CLIA [id number] [address] [place] Methamphetamine Confirm (U) [Mass/Vol] <8 Normal <8 [facility] Comment on above: Order Comment: Speci men Type: URINE SPECIMEN Ordering Facility: [facility] Address: [address] [address] Performed By: #### L [id number] #### [facility] CLIA [id number] [address] Morphine Confirm (U) [Mass/Vol] <10 Normal <10 [facility] Comment on above: Order Comment: Speci men Type: URINE SPECIMEN Ordering Facility: [facility] Address: [address] [place] [address] Result Comment: Morp majo is a metabolite of codeine and heroin. Performed By: #### L [id number] #### [facility] CLIA [id number] [address] [place] [address] Norbuprenorphine (U) [Mass/Vol] <20 Normal <20 [facility] Comment on above: Order Comment: Speci men Type: URINE SPECIMEN Ordering Facility: [facility] Address: [address] [place] [address] Result Comment: Norb uprenorphine is the primary active metabolite of buprenorphine. Performed By: #### L [id number] #### [facility] CLIA [id number] [address] [place] [address] Norfentanyl Confirm (U) [Mass/Vol] <6 Normal <6 [facility] Comment on above: Order Comment: Speci men Type: URINE SPECIMEN Ordering Facility: [facility] Address: [address] [place] [address] Result Comment: Norf entanyl is a metabolite of fentanyl. Performed By: #### L [id number] #### [facility] CLIA [id number] [id number] [place] Nortramadol (U) [Mass/Vol] <20 Normal <20 [facility] Comment on above: Order Comment: Speci men Type: URINE SPECIMEN Ordering Facility: [facility] Address: [address] [place] [address] Result Comment: Desm ethyltramadol is a metabolite of tramadol. Performed By: #### L [id number] #### [facility] CLIA [id number] [address] [place] [address] [place] NOTE,UR PAIN OCASIO Normal [facility] Comment on above: Order Comment: Speci men Type: URINE SPECIMEN Ordering Facility: [facility] Address: [address] [place] [address] Result Comment: This test is for medical use only. This test was developed and its performance characteristics determined by [facility] [place] ([facility]). It has not been cleared or approved by the FDA. [facility] is regulated under CLIA as qualified to perform high-complexity testing. This test is used for clinical purposes. It should not be regarded as investigational or for research. Performed By: #### L [id number] #### [facility] CLIA [id number] [address] [place] [address] [place] oxyCODONE Confirm (U) [Mass/Vol] 2574 ng/mL High <10 [facility] Comment on above: Order Comment: Speci men Type: URINE SPECIMEN Ordering Facility: [facility] Address: [address] [place] [address] Result Comment: Oxyc odone is not a recognized metabolite of other opiates and its presence indicates use of an oxycodone containing drug. Oxycodone is metabolized to oxymorphone. Performed By: #### L [id number] #### [facility] CLIA [id number] [address] [place] oxyMORphone Confirm (U) [Mass/Vol] 2296 ng/mL High <5 [facility] Comment on above: Order Comment: Speci men Type: URINE SPECIMEN Ordering Facility: [facility] Address: [address] [address] Result Comment: Oxym orphone may arise from oxymorphone containing drugs or by metabolism of oxycodone. Performed By: #### L [id number] #### [facility] CLIA [id number] [address] STATES OF [facility] traMADol Confirm (U) [Mass/Vol] <25 Normal <25 [facility] Comment on above: Order Comment: Speci men Type: URINE SPECIMEN Ordering Facility: [facility] Address: [address] [address] Performed By: #### L [id number] #### [facility] CLIA [id number] [address] [place] SPECIMEN VALIDITY, URINEon 1 03-28-2021 CHROMATE,URINE <10 Normal <50 [facility] Comment on above: Order Comment: Speci men Type: URINE SPECIMEN Ordering Facility: [facility] Address: [address] [address] Performed By: #### L [id number] #### [facility] CLIA [id number] [address] [place] CREATININE,URINE 78.6 mg/dL Normal 20.0-300.0 [facility] Comment on above: Order Comment: Speci men Type: URINE SPECIMEN Ordering Facility: [facility] Address: [address] [address] Performed By: #### L [id number] #### [facility] CLIA [id number] [address] [place] NITRITES,URINE <50 Normal <500 [facility] Comment on above: Order Comment: Speci men Type: URINE SPECIMEN Ordering Facility: [facility] Address: [address] [address] Performed By: #### L [id number] #### [facility] CLIA [id number] [facility] [place] [address] [place] OXIDANTS,URINE 58 mg/L Normal <200 [facility] Comment on above: Order Comment: Speci men Type: URINE SPECIMEN Ordering Facility: [facility] Address: [address] [place] [address] Performed By: #### L [id number] #### [facility] CLIA [id number] [address] [place] [address] [place] pH (U) 5.7 [pH] Normal 4.5-8.0 [facility] Comment on above: Order Comment: Speci men Type: URINE SPECIMEN Ordering Facility: [facility] Address: [address] [place] [address] Performed By: #### L [id number] #### [facility] CLIA [id number] [address] [place] [address] [place] SPEC GRAVITY,UR 1.010 Normal 1.003-1.035 [facility] Comment on above: Order Comment: Speci men Type: URINE SPECIMEN Ordering Facility: [facility] Address: [address] [place] [address] Performed By: #### L [id number] #### [facility] CLIA [id number] [address] [place] [address] SPECIMEN VALIDITY QUALITY Specimen quality results within acceptable limits Normal [facility] Comment on above: Order Comment: Speci men Type: URINE SPECIMEN Ordering Facility: [facility] Address: [address] [place] [address] Performed By: #### L [id number] #### [facility] CLIA [id number] [address] [place] [address] [place] CBC W Auto Differential pane l (Bld)on 11-13-2021 Abs Immature Gran 0.03 k/uL <0.10 k/uL [facility] Basophils (Bld) [#/Vol] 0.03 10*3/uL <0.11 k/uL [facility] Basophils/100 WBC (Bld) 0.4 % [facility] Differential cell count method Nom (Bld) Auto [facility] Eosinophils (Bld) [#/Vol] 0.34 10*3/uL <0.46 k/uL [facility] Eosinophils/100 WBC (Bld) 4.8 % [facility] Erythrocyte distribution width (RBC) [Ratio] 13.8 % 11.5 - 15.0 % [facility] Hematocrit (Bld) [Volume fraction] 44.4 % 36.0 - 46.0 % [facility] Hemoglobin (Bld) [Mass/Vol] 14.8 g/dL 11.5 - 15.5 g/dL [facility] Immature Gran % 0.4 % [facility] Lymphocytes (Bld) [#/Vol] 1.62 10*3/uL 1.00 - 4.00 k/uL [facility] Lymphocytes/100 WBC (Bld) 23.0 % [facility] MCH (RBC) [Entitic mass] 31.6 pg 26.0 - 34.0 pg [facility] MCHC (RBC) [Mass/Vol] 33.3 g/dL 30.5 - 36.0 g/dL [facility] MCV (RBC) [Entitic vol] 94.7 fL 80.0 - 100.0 fL [facility] Monocytes (Bld) [#/Vol] 0.51 10*3/uL <0.87 k/uL [facility] Monocytes/100 WBC (Bld) 7.3 % [facility] Neutrophils (Bld) [#/Vol] 4.50 10*3/uL 1.45 - 7.50 k/uL [facility] Neutrophils/100 WBC (Bld) 64.1 % [facility] Nucleated RBC (Bld) [#/Vol] <0.01 k/uL [facility] Nucleated RBC/100 WBC (Bld) [Ratio] 0.0 /100 WBC [facility] Platelet mean volume (Bld) [Entitic vol] 9.6 fL 9.0 - 12.7 fL [facility] Platelets (Bld) [#/Vol] 310 10*3/uL 150 - 400 k/uL [facility] RBC (Bld) [#/Vol] 4.69 10*6/uL 3.90 - 5.2 0 m/uL [facility] WBC (Bld) [#/Vol] 7.03 10*3/uL 3.70 - 11. 00 k/uL [facility] CNOVon 10-26-2021 CNOV Office Visit (CNFVM) CELSO POTTS ([id number]) 1980 F TRN Date Time Provider Department 10/26/21 3:00 PM [facility] During your visit today, we recorded the following information about you: Temperature Pulse Blood pressure Weight 97.7 degrees 100/minute 117/88 103 kg Juan Francisco Hutchinson APRN.STATE COMP[employer]ER 10/26/2021 2:43 PM Signed PALLIATIVE MEDICINE PROGRESS [...] care with [facility] visit 08/02. Referred to [facility] due to proximity of home. Did [...] upcoming PET scan will show. Modified ESAS ([place] Symptom Assessment Scale) Information Provided By: Patient [...] Medical Onco (more content not included)... Normal [facility] XR CHEST 1V FRONTAL PORTon 0 09-21-2021 [...] adverse interval change compared to prior studies. Data Security Coordinator: PSCB Transcribe Date/Time: Sep 20 2021 11:03P Dictated by : BRADY BUCK MD This examination was interpreted and the report reviewed and electronically signed by: BRADY BUCK MD on Sep 20 2021 11:04PM EST [id number] [facility] Bacteria Bld Culton 09-21-19 22 Bacteria identified Cx Nom (Bld) CULTURE, BLOOD: No growth 5 days Normal [facility] Comment on above: Performed By: #### 6 00-7 #### [facility] CLIA [id number] [address] [place] [address] [place] Bacteria identified Cx Nom (Bld) CULTURE, BLOOD: No growth 5 days Normal [facility] Comment on above: Performed By: #### 6 00-7 #### [facility] CLIA [id number] [address] [place] [address] [place] Bacteria Ur Culton 2 Bacteria identified Cx Nom (U) CULTURE, URINE: No growth (<1,000 CFU/ml) Normal [facility] Comment on above: Performed By: #### 6 30-4 #### [facility] CLIA [id number] [address] [place] [address] [place] CBC W Auto Differential pane l (Bld)on 09-20-2021 Basophils (Bld) [#/Vol] 0.03 10*3/uL Normal <0.11 [facility] Comment on above: Order Comment: Speci men Type: BLOOD SPECIMEN Ordering Facility: [facility] Address: [address] [place] [address] Performed By: #### 5 7021-8 #### [facility] [place] [id number] [address] [place] [address] [place] Basophils/100 WBC (Bld) 0.5 % Normal [facility] Comment on above: Order Comment: Speci men Type: BLOOD SPECIMEN Ordering Facility: [facility] Address: [address] [place] [address] Performed By: #### 5 7021-8 #### [facility] IA [id number] [address] [place] [address] [place] Differential cell count method Nom (Bld) Auto Normal [facility] Comment on above: Order Comment: Speci men Type: BLOOD SPECIMEN Ordering Facility: [facility] Address: [address] Performed By: #### 5 7021-8 #### [facility] IA [id number] [address] [place] [address] [place] Eosinophils (Bld) [#/Vol] 0.20 10*3/uL Normal <0.46 [facility] Comment on above: Order Comment: Speci men Type: BLOOD SPECIMEN Ordering Facility: [facility] Address: [address] [place] [address] Performed By: #### 5 7021-8 #### [facility] IA [id number] [address] [place] [address] [place] Eosinophils/100 WBC (Bld) 3.1 % Normal [facility] Comment on above: Order Comment: Speci men Type: BLOOD SPECIMEN Ordering Facility: [facility] Address: [address] [place] [address] Performed By: #### 5 7021-8 #### [facility] IA [id number] [address] [place] [address] [place] Erythrocyte distribution width (RBC) [Ratio] 13.4 % Normal 11.5-15.0 [facility] Comment on above: Order Comment: Speci men Type: BLOOD SPECIMEN Ordering Facility: [facility] Address: [address] [place] [address] Performed By: #### 5 7021-8 #### [facility] IA [id number] [address] [place] [address] [place] Hematocrit (Bld) [Volume fraction] 47.1 % High 36.0-46.0 [facility] Comment on above: Order Comment: Speci men Type: BLOOD SPECIMEN Ordering Facility: [facility] Address: [address] [place], [place] [address] Performed By: #### 5 7021-8 #### [facility] IA [id number] [address] [place] [address] [place] Hemoglobin (Bld) [Mass/Vol] 15.4 g/dL Normal 11.5-15.5 [facility] Comment on above: Order Comment: Speci men Type: BLOOD SPECIMEN Ordering Facility: [facility] Address: [address] [place] [address] Performed By: #### 5 7021-8 #### [facility] IA [id number] [address] [place] IMMATURE GRAN % 0.3 % Normal [facility] Comment on above: Order Comment: Speci men Type: BLOOD SPECIMEN Ordering Facility: [facility] Address: [address] [place], [place] [address] Performed By: #### 5 7021-8 #### [facility] IA [id number] [address] OF [facility] IMMATURE GRAN ABS <0.03 Normal <0.10 [facility] Comment on above: Order Comment: Speci men Type: BLOOD SPECIMEN Ordering Facility: [facility] Address: [address] [place] [address] Performed By: #### 5 7021-8 #### [facility] IA [id number] [address] STATES OF [facility] Lymphocytes (Bld) [#/Vol] 0.78 10*3/uL Low 1.00-4.00 [facility] Comment on above: Order Comment: Speci men Type: BLOOD SPECIMEN Ordering Facility: [facility] Address: [address] [place], [place] [address] Performed By: #### 5 7021-8 #### [facility] IA [id number] [address] [place] Lymphocytes/100 WBC (Bld) 11.9 % Normal [facility] Comment on above: Order Comment: Speci men Type: BLOOD SPECIMEN Ordering Facility: [facility] Address: [address] [place], [place] [address] Performed By: #### 5 7021-8 #### [facility] IA [id number] [address] [place] MCH (RBC) [Entitic mass] 31.0 pg Normal 26.0-34.0 [facility] Comment on above: Order Comment: Speci men Type: BLOOD SPECIMEN Ordering Facility: [facility] Address: [address] [place] [address] Performed By: #### 5 7021-8 #### [facility] CLIA [id number] [address] [place] MCHC (RBC) [Mass/Vol] 32.7 g/dL Normal 30.5-36.0 [facility] Comment on above: Order Comment: Speci men Type: BLOOD SPECIMEN Ordering Facility: [facility] Address: [address] [place] [address] Performed By: #### 5 7021-8 #### [facility] IA [id number] [address] [place] [address] OF [facility] MCV (RBC) [Entitic vol] 94.8 fL Normal 80.0-100.0 [facility] Comment on above: Order Comment: Speci men Type: BLOOD SPECIMEN Ordering Facility: [facility] Address: [address] [place] [address] Performed By: #### 5 7021-8 #### [facility] IA [id number] [address] OF [facility] Monocytes (Bld) [#/Vol] 0.81 10*3/uL Normal <0.87 [facility] Comment on above: Order Comment: Speci men Type: BLOOD SPECIMEN Ordering Facility: [facility] Address: [address] [place] [address] Performed By: #### 5 7021-8 #### [facility] CLIA [id number] Monocytes/100 WBC (Bld) 12.4 % Normal [facility] Comment on above: Order Comment: Speci men Type: BLOOD SPECIMEN Ordering Facility: [facility] Address: [address] [place] [address] Performed By: #### 5 7021-8 #### [facility] CLIA [id number] [address] [place] [address] [place] Neutrophils (Bld) [#/Vol] 4.71 10*3/uL Normal 1.45-7.50 [facility] Comment on above: Order Comment: Speci men Type: BLOOD SPECIMEN Ordering Facility: [facility] Address: [address] [place], [place] [address] Performed By: #### 5 7021-8 #### [facility] IA [id number] [address] [place] [address] [place] Neutrophils/100 WBC (Bld) 71.8 % Normal [facility] Comment on above: Order Comment: Speci men Type: BLOOD SPECIMEN Ordering Facility: [facility] Address: [address] [place] [address] Performed By: #### 5 7021-8 #### [facility] IA [id number] [address] [place] [address] [place] Nucleated RBC (Bld) [#/Vol] 10*3/uL Normal <0.01 [facility] Comment on above: Order Comment: Speci men Type: BLOOD SPECIMEN Ordering Facility: [facility] Address: [address] [place] [address] Performed By: #### 5 7021-8 #### [facility] IA [id number] [address] [place] [address] [place] Nucleated RBC/100 WBC (Bld) [Ratio] 0.0 /100 WBC Normal [facility] Comment on above: Order Comment: Speci men Type: BLOOD SPECIMEN Ordering Facility: [facility] Address: [address] [place], [place] [address] Performed By: #### 5 7021-8 #### [facility] [place] [id number] [address] [place] [address] [place] Platelet mean volume (Bld) [Entitic vol] 9.0 fL Normal 9.0-12.7 [facility] Comment on above: Order Comment: Speci men Type: BLOOD SPECIMEN Ordering Facility: [facility] Address: [address] [place], [place] [address] Performed By: #### 5 7021-8 #### [facility] IA [id number] [address] [place] [address] [facility] [place] Platelets (Bld) [#/Vol] 229 10*3/uL Normal 150-400 [facility] Comment on above: Order Comment: Speci men Type: BLOOD SPECIMEN Ordering Facility: [facility] Address: [address] [place], [place] [address] Performed By: #### 5 7021-8 #### [facility] IA [id number] [address] [place] RBC (Bld) [#/Vol] 4.97 10*6/uL Normal 3.90-5.20 [facility] Comment on above: Order Comment: Speci men Type: BLOOD SPECIMEN Ordering Facility: [facility] Address: [address] [place], [place] [address] Performed By: #### 5 7021-8 #### [facility] IA [id number] [address] [place] [address] [place] WBC (Bld) [#/Vol] 6.55 10*3/uL Normal 3.70-11.00 [facility] Comment on above: Order Comment: Speci men Type: BLOOD SPECIMEN Ordering Facility: [facility] Address: [address] [place], [place] [address] Performed By: #### 5 7021-8 #### [facility] IA [id number] [address] [place] [address] [facility] [place] Comprehensive metabolic 2000 panelon 09-20-2021 Albumin [Mass/Vol] 4.5 g/dL Normal 3.9-4.9 [facility] Comment on above: Order Comment: Speci men Type: URINE SPECIMEN Ordering Facility: [facility] Address: [address] [place], [place] [address] Performed By: #### 2 106-3 #### [facility] CLIA [id number] [address] [place] [address] [place] ALP [Catalytic activity/Vol] 81 U/L Normal 34-123 [facility] Comment on above: Order Comment: Speci men Type: URINE SPECIMEN Ordering Facility: [facility] Address: [address] [place] [address] Performed By: #### 2 106-3 #### [facility] IA [id number] [address] [place] [address] [place] ALT [Catalytic activity/Vol] 84 U/L High 7-38 [facility] Comment on above: Order Comment: Speci men Type: URINE SPECIMEN Ordering Facility: [facility] Address: [address] [place] [address] Performed By: #### 2 106-3 #### [facility] IA [id number] [address] [place] [address] [place] Anion gap [Moles/Vol] 8 mmol/L Low 9-18 [facility] Comment on above: Order Comment: Speci men Type: URINE SPECIMEN Ordering Facility: [facility] Address: [address] [place], [place] [address] Performed By: #### 2 106-3 #### [facility] IA [id number] [address] [place] [address] [place] AST [Catalytic activity/Vol] 73 U/L High 13-35 [facility] Comment on above: Order Comment: Speci men Type: URINE SPECIMEN Ordering Facility: [facility] Address: [address] [place], [place] [address] Performed By: #### 2 106-3 #### [facility] IA [id number] [place] [address] [place] Bilirubin [Mass/Vol] 0.4 mg/dL Normal 0.2-1.3 [facility] Comment on above: Order Comment: Speci men Type: URINE SPECIMEN Ordering Facility: [facility] Address: [address] [place] [address] Performed By: #### 2 106-3 #### [facility] IA [id number] [address] [place] [address] [place] Calcium [Mass/Vol] 9.4 mg/dL Normal 8.5-10.2 [facility] Comment on above: Order Comment: Speci men Type: URINE SPECIMEN Ordering Facility: [facility] Address: [address] [place], [place] [address] Performed By: #### 2 106-3 #### [facility] IA [id number] [address] [place] [address] [place] Chloride [Moles/Vol] 99 mmol/L Normal 97-105 [facility] Comment on above: Order Comment: Speci men Type: URINE SPECIMEN Ordering Facility: [facility] Address: [address] [place] [address] Performed By: #### 2 106-3 #### [facility] IA [id number] [address] [place] [address] [place] CO2 [Moles/Vol] 30 mmol/L Normal 22-30 [facility] Comment on above: Order Comment: Speci men Type: URINE SPECIMEN Ordering Facility: [facility] Address: [address] [place], [place] [address] Performed By: #### 2 106-3 #### [facility] IA [id number] [address] [place] [address] [place] Creatinine [Mass/Vol] 0.78 mg/dL Normal 0.58-0.96 [facility] Comment on above: Order Comment: Speci men Type: URINE SPECIMEN Ordering Facility: [facility] Address: [address] [place], [place] [address] Performed By: #### 2 106-3 #### [facility] [place] [id number] [place], [place] [id number] [place] ESTIMATED GLOMERULAR FILTRATION RATE 99 mL/min/1.73m??? Normal >=60 [facility] Comment on above: Order Comment: Speci men Type: URINE SPECIMEN Ordering Facility: [facility] Address: [address] [id number] Result Comment: Purnima mated Glomerular Filtration Rate [...] GFR. Performed By: #### 2 106-3 #### [facility] CLIA [id number] [place] [address] [place] Glucose [Mass/Vol] 97 mg/dL Normal 74-99 [facility] Comment on above: Order Comment: Nicole toribio Type: URINE SPECIMEN Ordering Facility: [facility] Address: [address] [place], [place] [id number] Result Comment: The [place] [employer] (ADA) provides guidance for cutoff [...] Standards of Medical Care in Diabetes 2016, [place] [employer]. Diabetes Care. 2016.39(Suppl 1). Performed By: #### 2 106-3 #### [facility] CLIA [id number] [address] [place] [place] [address] [place] Potassium [Moles/Vol] 3.8 mmol/L Normal 3.7-5.1 [facility] Comment on above: Order Comment: Nicole toribio Type: URINE SPECIMEN Ordering Facility: [facility] Address: [address] [id number] Performed By: #### 2 106-3 #### [facility] CLIA [id number] [address] [place] [address] [place] Protein [Mass/Vol] 7.3 g/dL Normal 6.3-8.0 [facility] Comment on above: Order Comment: Speci men Type: URINE SPECIMEN Ordering Facility: [facility] Address: [address] [place] [address] Performed By: #### 2 106-3 #### [facility] CLIA [id number] [place] Sodium [Moles/Vol] 137 mmol/L Normal 136-144 [facility] Comment on above: Order Comment: Speci men Type: URINE SPECIMEN Ordering Facility: [facility] Address: [address] [place] [address] Performed By: #### 2 106-3 #### [facility] [place] [id number] [address] [place] [address] [place] Urea nitrogen [Mass/Vol] 8 mg/dL Normal 7-21 [facility] Comment on above: Order Comment: Speci men Type: URINE SPECIMEN Ordering Facility: [facility] Address: [address] [place] [address] Performed By: #### 2 106-3 #### [facility] [place] [id number] [address] [place] ECG COMPLETEon 09-20-2021 ECG COMPLETE Ventricular Rate : 1 08 BPM Atrial Rate : 109 BPM P-R Interval : 158 ms QRS Duration : 91 ms Q-T Interval : 332 ms QTC Calculation(Bazett) : 445 ms Calculated P [place] : 66 degrees Calculated R [place] : -26 degrees Calculated T [place] : 11 degrees Sinus tachycardia LVH by voltage Anterior Q waves, possibly due to LVH Abnormal ECG 2052 no STEMI Confirmed by TREY NAJERA MD ([id number]), subeditor SHERIN DELACRUZ ([id number]) on 09/21/2021 9:56:42 AM NAME : CELSO POTTS PID : [id number] : 1980 Gender : Female Race : ORD : [id number] Procedure Date : Sep 20 2021 20:31:09 Edit Date : Sep 21 2021 09:56:43 Diagnosis: Sinus tachycardia LVH by voltage Anterior Q waves, possibly due to LVH Abnormal ECG 2052 no STEMI Confirmed by TREY NAJERA MD ([id number]), subeditor SHERIN DELACRUZ ([id number]) on 09/21/2021 9:56:42 AM Test Reason : Chest Pain Location : 302 : ED AVED-15 Overread By : TREY NAJERA MD Edited By : SHERIN DELACRUZ Referred By : , Acquired by : [id number], [facility] ED NOTEon 09-20-2021 ED NOTE HNO ID: [id number] Author: Paula Ardon RN Service: ? Author Type: Registered Nurse Type: ED Notes Filed: 09/20/2021 9:00 PM Note Text: Pt ambulated to bathroom - steady gait [facility] ED PROV NOTEon 09-20-2021 ED PROV NOTE HNO ID: [id number] Author: Trey Najera DO Service: Emergency Medicine [...] with fever chills body aches and fatigue. [place] fine yesterday. Denies any runny nose sore [...] Mother - Coronary Artery Disease Maternal Grandfather MS age 36 - Coronary Artery Disease Paternal [...] No foca (more content not included)... Normal [facility] HCG Preg Ur Ql 09-20-2021 HCG ( test) Ql (U) Negative Normal Negative [facility] Comment on above: Order Comment: Speci men Type: URINE SPECIMEN Ordering Facility: [facility] Address: [address] [place] [address] Result Comment: This test is intended to aid in the early detection of . Very dilute urine samples, as indicated by a low specific gravity, may not contain outside sales account representative levels of hCG. This test detects [...] . Performed By: #### 2 106-3 #### [facility] [place] [id number] TROPONIN Ton 09-20-2021 Troponin T.cardiac [Mass/Vol] ug/L Normal 0.000-0.029 [facility] Comment on above: Order Comment: Speci men Type: URINE SPECIMEN Ordering Facility: [facility] Address: [address] [place] [address] Performed By: #### 2 106-3 #### [facility] [place] [id number] [address] [place] Urinalysis complete panel (U )on 09-20-2021 Bacteria LM.HPF (Urine sed) [#/Area] Rare Abnormal None Seen [facility] Comment on above: Order Comment: Speci men Type: URINE SPECIMEN Ordering Facility: [facility] Address: [address] [place] [address] Performed By: #### 2 106-3 #### [facility] [place] [id number] [address] [place] [address] [place] Bilirubin Ql (U) Negative Normal Negative [facility] Comment on above: Order Comment: Speci men Type: URINE SPECIMEN Ordering Facility: [facility] Address: [address] [place] [address] Performed By: #### 2 106-3 #### [facility] [place] [id number] [address] [place] [address] [place] Clarity (Unsp spec) Clear Normal Clear [facility] Comment on above: Order Comment: Speci men Type: URINE SPECIMEN Ordering Facility: [facility] Address: [address] [place] [address] Performed By: #### 2 106-3 #### [facility] [place] [id number] [place] Color (U) Yellow Normal Yellow [facility] Comment on above: Order Comment: Speci men Type: URINE SPECIMEN Ordering Facility: [facility] Address: [address] [place], [place] [phone] Performed By: #### 2 106-3 #### [facility] [id number] [address] [place] [address] [place] Epithelial cells LM.HPF (Urine sed) [#/Area] Few Normal [facility] Comment on above: Order Comment: Speci men Type: URINE SPECIMEN Ordering Facility: [facility] Address: [address] [place] [address] Performed By: #### 2 106-3 #### [facility] [id number] [address] [place] [address] [place] Glucose Test strip (U) [Mass/Vol] Negative Normal Negative [facility] Comment on above: Order Comment: Speci men Type: URINE SPECIMEN Ordering Facility: [facility] Address: [address] [place] [address] Performed By: #### 2 106-3 #### [facility] [id number] [address] [place] [address] [place] Hemoglobin Ql (U) Negative Normal Negative [facility] Comment on above: Order Comment: Speci men Type: URINE SPECIMEN Ordering Facility: [facility] Address: [address] [place] [address] Performed By: #### 2 106-3 #### [facility] [id number] [address] [place] [address] [place] Ketones Ql (U) Negative Normal Negative [facility] Comment on above: Order Comment: Speci men Type: URINE SPECIMEN Ordering Facility: [facility] Address: [address] [place] [address] Performed By: #### 2 106-3 #### [facility] [id number] [address] [place] [address] [place] Leukocyte esterase Test strip Ql (U) Trace Abnormal Negative [facility] Comment on above: Order Comment: Speci men Type: URINE SPECIMEN Ordering Facility: [facility] Address: [address] [address] Performed By: #### 2 106-3 #### [facility] [id number] [address] [place] [address] [place] Nitrite Ql (U) Negative Normal Negative [facility] Comment on above: Order Comment: Speci men Type: URINE SPECIMEN Ordering Facility: [facility] Address: [address] [place] [address] Performed By: #### 2 106-3 #### [facility] [id number] [address] [place] [address] [place] pH (U) 7.0 [pH] Normal 5.0-8.0 [facility] Comment on above: Order Comment: Speci men Type: URINE SPECIMEN Ordering Facility: [facility] Address: [address] [place] [address] Performed By: #### 2 106-3 #### [facility] [id number] [address] [place] [address] [place] Protein (U) [Mass/Vol] Negative Normal Negative [facility] Comment on above: Order Comment: Speci men Type: URINE SPECIMEN Ordering Facility: [facility] Address: [address] [place] [address] Performed By: #### 2 106-3 #### [facility] [id number] [address] [place] [address] [place] RBC LM.HPF (Urine sed) [#/Area] 0-3 /HPF Normal 0-3 /HPF [facility] Comment on above: Order Comment: Speci men Type: URINE SPECIMEN Ordering Facility: [facility] Address: [address] [place] [address] Performed By: #### 2 106-3 #### [facility] [id number] [address] [place] [address] [place] Specific gravity (U) [Rel density] 1.006 Normal 1.005-1.030 [facility] Comment on above: Order Comment: Speci men Type: URINE SPECIMEN Ordering Facility: [facility] Address: [address] [place] [address] Performed By: #### 2 106-3 #### [facility] IA [id number] [address] Urobilinogen Ql (U) 0.2 EU/dL Normal 0.2-1.0 EU/dL [facility] Comment on above: Order Comment: Speci men Type: URINE SPECIMEN Ordering Facility: [facility] Address: [address] [place] [address] Performed By: #### 2 106-3 #### [facility] IA [id number] [address] [place] [address] [place] WBC LM.HPF (Urine sed) [#/Area] 0-5 /HPF Normal 0-5 /HPF [facility] Comment on above: Order Comment: Speci men Type: URINE SPECIMEN Ordering Facility: [facility] Address: [address] [place] [address] Performed By: #### 2 106-3 #### [facility] [place] [id number] [address] [place] [address] [place] WOUND CULTUREon 07-28-2021 Bacteria identified Aer cx Nom (Unsp spec) Final report Normal [facility] Comment on above: Performed By: #### C XWND #### [facility] [address] [address] [address] Kristina Morales Result 1 Mixed skin doni Normal [facility] Comment on above: Performed By: #### C XWND #### [facility] [address] [address] [address] Kristina Morales Initial Visit (Otolaryngolog y)on [...] laryngeal structure (more content not included)... Normal [facility] [facility], Urineon 04-17-2021 Culture, Urine ORDER#: [id number] ORDERED BY: SHEILA LIN SOURCE: Urine Voided COLLECTED: 04/17/21 18:42 ANTIBIOTICS AT CECILY.: RECEIVED : 04/17/21 19:23 Culture, Urine FINAL 04/19/21 12:36 Cult,Urine: NO SIGNIFICANT GROWTH Performed at [address] [id number] ([phone] [facility] Comment on above: Performed By: #### C SHIRA #### [facility] [address] [place] [address] Urinalysis, reflex to micros copicon 04-17-2021 Bilirubin Ql (U) Negative Normal Negative [facility] Comment on above: Performed By: #### U A #### [facility] [address] [place] [address] Clarity (U) Clear Normal Clear [facility] Comment on above: Performed By: #### U A #### [facility] [address] [place] [address] Color (U) Yellow Normal Straw/[facility]tee[facility] Comment on above: Performed By: #### U A #### [facility] [address] [place] [address] Glucose Ql (U) Negative Normal Negative [facility] Comment on above: Performed By: #### U A #### [facility] [address] [place] [address] Hemoglobin Ql (U) Negative Normal Negative [facility] Comment on above: Performed By: #### U A #### [facility] [address] [place] [address] Ketones Ql (U) Negative Normal Negative [facility] Comment on above: Performed By: #### U A #### [facility] [address] [place] [address] Leukocyte esterase Test strip Ql (U) TRACE Abnormal Negative [facility] Comment on above: Performed By: #### U A #### [facility] [address] [place] [address] Nitrite Ql (U) Negative Normal Negative [facility] Comment on above: Performed By: #### U A #### [facility] [address] [place] [address] pH (U) 6.0 [pH] Normal 5.0-9.0 [facility] Comment on above: Performed By: #### U A #### [facility] [address] [place] [address] Protein Ql (U) Negative Normal Negative [facility] Comment on above: Performed By: #### U A #### [facility] [address] [place] [address] Specific gravity (U) [Rel density] 1.006 Normal 1.005-1.03 [facility] Comment on above: Performed By: #### U A #### [facility] [address] [place] [address] Urobilinogen Qn (U) 0.2 {Nuvia'U}/dL Normal < 2.0 [facility] Comment on above: Performed By: #### U A #### [facility] [address] [place] [address] Urine Microscopicon 04-17-19 22 Bacteria LM.HPF (Urine sed) [#/Area] Negative Normal Negative [facility] Comment on above: Performed By: #### U RICARDO #### [facility] [address] [place] [address] Urine Epithelial Cells Auto 0-2 Normal 0-5 [facility] Comment on above: Performed By: #### U RICARDO #### [facility] [address] [place] [address] Urine Hyaline Casts Auto 0-1 Normal 0-5 [facility] Comment on above: Performed By: #### U RICARDO #### [facility] [address] [place] [address] Urine RBC Auto 0-2 Normal 0-5 [facility] Comment on above: Performed By: #### U RICARDO #### [facility] [address] [place] [address] Urine WBC Auto 0-2 Normal 0-5 [facility] Comment on above: Performed By: #### U RICARDO #### [facility] [address] [place] [address] COVID Quick Testingon 2020 Result Negative [employer] Other XR ELBOW 3V AP/LAT/OTHER LTo n [...] effusion. IMPRESSION: Normal radiographs of the elbow. Data Security Coordinator: [employer] Transcribe Date/Time: Nov 23 2020 11:11A Dictated by : SHERLY العلي MD This examination was interpreted and the report reviewed and electronically signed by: LIBRA COOK MD on Nov 23 2020 4:30PM EST [id number] Normal [facility] KNEE CMPLT, 4 OR MORE VIEWSo n 08-24-2019 KNEE CMPLT, 4 OR MORE VIEWS Patient Name: CELSO POTTS STUDY: KNEE; COMPLT, 4 OR MORE VIEWS; Left; 08/24/2019 3:23 pm INDICATION: Pain. ACCESSION NUMBER(S): [id number] ORDERING CLINICIAN: RENETTA GUERRERO FINDINGS: Left knee x-rays four views AP, lateral, tunnel and sunrise view: No acute fractures, no dislocation. No significant degenerative changes. Electronically signed by: RENETTA GUERRERO MD Normal [facility] Free T4on 03-02-2019 Free T4 [Mass/Vol] 1.2 ng/dL Normal 0.9-1.7 [facility] Comment on above: Performed By: #### F T4, TSH #### [facility] Routine Lab [address] [place], [place] [id number] TSHon 03-02-2019 TSH Qn 5.290 uU/mL High 0.270-4.200 [facility] Comment on above: Performed By: #### F T4, TSH #### [facility] Routine Lab [address] [place], [place] [address] Vital Signs Date Time Vital Sign Value Performing Clinician Facility 03-28-2023 14:19-0500 Body weight 108.86 kg Kylie Nunes APRN.[employer] Work Phone: [facility] 03-28-2023 14:19-0500 Diastolic blood pressure 81 mm[Hg] Kylie Nunes APRN.[facility] Work Phone: [facility] 03-28-2023 14:19-0500 Heart rate 99 /min Kylie Nunes APRN.[employer] Work Phone: [facility] 03-28-2023 14:19-0500 SaO2% (BldA) [Mass fraction] 97 % Kylie Nunes APRN.[employer] Work Phone: [facility] 03-28-2023 14:19-0500 Systolic blood pressure 114 mm[Hg] Kylie Nunes APRN.[facility] Work Phone: [facility] 01-29-2023 16:45-0500 Body height 182.88 cm Keke Bright Other [employer] Other 01-29-2023 16:45-0500 Body mass index (BMI) [Ratio] 30.92 kg/m2 Keke Bright Other [employer] Other 01-29-2023 16:45-0500 Body temperature 98 [degF] Keke Kaila Other [employer] Other 01-29-2023 16:45-0500 Body weight 103.42 kg Keke Kaila Other [employer] Other 01-29-2023 16:45-0500 Diastolic blood pressure 86 mm[Hg] Keke Kaila Other [employer] Other 01-29-2023 16:45-0500 Respiratory rate 18 /min Keke Kaila Other [employer] Other 01-29-2023 16:45-0500 SaO2% (BldA) [Mass fraction] 98 % Keke Bright Other [employer] Other 01-29-2023 16:45-0500 Systolic blood pressure 133 mm[Hg] Keke Kaila Other [employer] Other 01-01-2023 10:53-0500 Body height 180 cm Alexsander Ledezma MD Work Phone: [facility] 01-01-2023 10:53-0500 Body temperature 97 [degF] Alexsander Ledezma MD Work Phone: [facility] 01-01-2023 10:53-0500 Body weight 102.6 kg Alexsander Ledezma MD Work Phone: [facility] 01-01-2023 10:53-0500 Diastolic blood pressure 89 mm[Hg] Alexsander Ledezma MD Work Phone: [facility] 01-01-2023 10:53-0500 Heart rate 104 /min Alexsander Ledezma MD Work Phone: [facility] 01-01-2023 10:53-0500 Respiratory rate 16 /min Alexsander Ledezma MD Work Phone: [facility] 01-01-2023 10:53-0500 SaO2% (BldA) [Mass fraction] 97 % Alexsander Ledezma MD Work Phone: [facility] 01-01-2023 10:53-0500 Systolic blood pressure 133 mm[Hg] Alexsander Ledezma MD Work Phone: [facility] 10-18-2022 11:01-0400 Body temperature 98.2 [degF] Juan Francisco Hutchinson EDUCATIONAL RESOURCE COORDINATOR.[employer] Work Phone: [facility] 10-18-2022 11:01-0400 Body weight 102.01 kg Juan Francisco Hutchinson EDUCATIONAL RESOURCE COORDINATOR.[employer] Work Phone: [facility] 10-18-2022 11:01-0400 Diastolic blood pressure 81 mm[Hg] Juan Francisco Hutchinson EDUCATIONAL RESOURCE COORDINATOR.[employer] Work Phone: [facility] 10-18-2022 11:01-0400 Heart rate 96 /min Juan Francisco Hutchinson EDUCATIONAL RESOURCE COORDINATOR.[employer] Work Phone: [facility] 10-18-2022 11:01-0400 SaO2% (BldA) [Mass fraction] 96 % Juan Francisco Hutchinson EDUCATIONAL RESOURCE COORDINATOR.[employer] Work Phone: [facility] 10-18-2022 11:01-0400 Systolic blood pressure 116 mm[Hg] Juan Francisco Hutchinson EDUCATIONAL RESOURCE COORDINATOR.STATE COMP[employer] Work Phone: [facility] 09-13-2022 10:06-0400 Body weight 103.87 kg Summer Carver MD Work Phone: [facility] 09-13-2022 10:06-0400 Diastolic blood pressure 87 mm[Hg] Summer Carver MD Work Phone: [facility] 09-13-2022 10:06-0400 Heart rate 95 /min Summer Carver MD Work Phone: [facility] 09-13-2022 10:06-0400 Respiratory rate 16 /min Summer Carver MD Work Phone: [facility] 09-13-2022 10:06-0400 SaO2% (BldA) [Mass fraction] 96 % Summer Carver MD Work Phone: [facility] 09-13-2022 10:06-0400 Systolic blood pressure 121 mm[Hg] Summer Carver MD Work Phone: [facility] 08-22-2022 14:33-0400 Body temperature 98.6 [degF] Cyn Ramires MD Work Phone: [facility] 08-22-2022 14:33-0400 Diastolic blood pressure 74 mm[Hg] Cyn Ramires MD Work Phone: [facility] 08-22-2022 14:33-0400 Heart rate 100 /min Cyn Ramires MD Work Phone: [facility] 08-22-2022 14:33-0400 SaO2% (BldA) [Mass fraction] 94 % Cyn Ramires MD Work Phone: [facility] 08-22-2022 14:33-0400 Systolic blood pressure 105 mm[Hg] Cyn Ramires MD Work Phone: [facility] 08-01-2022 09:56-0400 Body height 180.3 cm Ella Rocio EDUCATIONAL RESOURCE COORDINATOR.STATE COMPTR[employer]LLER Work Phone: [facility] 08-01-2022 09:56-0400 Body temperature 97 [degF] Ella Rocio EDUCATIONAL RESOURCE COORDINATOR.STATE [employer] Work Phone: [facility] 08-01-2022 09:56-0400 Diastolic blood pressure 80 mm[Hg] Ella Rocio EDUCATIONAL RESOURCE COORDINATOR.STATE [employer] Work Phone: [facility] 08-01-2022 09:56-0400 Heart rate 100 /min Ella Rocio EDUCATIONAL RESOURCE COORDINATOR.STATE [employer]LLER Work Phone: [facility] 08-01-2022 09:56-0400 SaO2% (BldA) [Mass fraction] 95 % Ella Chan EDUCATIONAL RESOURCE COORDINATOR.STATE [employer]ER Work Phone: [facility] 08-01-2022 09:56-0400 Systolic blood pressure 115 mm[Hg] Ella Chan EDUCATIONAL RESOURCE COORDINATOR.STATE [employer]ER Work Phone: [facility] 07-19-2022 10:32-0400 Body weight 105.33 kg Juan Francisco Hutchinson EDUCATIONAL RESOURCE COORDINATOR.[employer] Work Phone: [facility] 07-19-2022 10:32-0400 Diastolic blood pressure 84 mm[Hg] Juan Francisco Hutchinson EDUCATIONAL RESOURCE COORDINATOR.[employer] Work Phone: [facility] 07-19-2022 10:32-0400 Heart rate 104 /min Juan Francisco Hutchinson EDUCATIONAL RESOURCE COORDINATOR.STATE [employer] Work Phone: [facility] 07-19-2022 10:32-0400 SaO2% (BldA) [Mass fraction] 94 % Juan Francisco Hutchinson EDUCATIONAL RESOURCE COORDINATOR.STATE [employer] Work Phone: [facility] 07-19-2022 10:32-0400 Systolic blood pressure 124 mm[Hg] Juan Francisco Hutchinson EDUCATIONAL RESOURCE COORDINATOR.STATE COMPTR[employer]ER Work Phone: [facility] 07-18-2022 11:06-0400 Body height 182.9 cm Cyn Ramires MD Work Phone: [facility] 07-18-2022 11:06-0400 Body temperature 98.2 [degF] Cyn Ramires MD Work Phone: [facility] 07-18-2022 11:06-0400 Body weight 106.41 kg Cyn Ramires MD Work Phone: [facility] 07-18-2022 11:06-0400 Diastolic blood pressure 86 mm[Hg] Cyn Ramires MD Work Phone: [facility] 07-18-2022 11:06-0400 Heart rate 103 /min Cyn Ramires MD Work Phone: [facility] 07-18-2022 11:06-0400 Respiratory rate 18 /min Cyn Ramires MD Work Phone: [facility] 07-18-2022 11:06-0400 SaO2% (BldA) [Mass fraction] 96 % Cyn Ramires MD Work Phone: [facility] 07-18-2022 11:06-0400 Systolic blood pressure 124 mm[Hg] Cyn Ramires MD Work Phone: [facility] 05-01-2022 09:51-0400 Body temperature 98.01 [degF] Treatment Rej Work Phone: [facility] 05-01-2022 09:51-0400 Diastolic blood pressure 87 mm[Hg] Treatment Rej Work Phone: [facility] 05-01-2022 09:51-0400 Heart rate 106 /min Treatment Rej Work Phone: [facility] 05-01-2022 09:51-0400 Respiratory rate 18 /min Treatment Rej Work Phone: [facility] 05-01-2022 09:51-0400 Systolic blood pressure 123 mm[Hg] Treatment Rej Work Phone: [facility] 04-23-2022 09:49-0500 Body weight 106.91 kg Juan Francisco Hutchinson APRN.STATE COMPTROLLER Work Phone: [facility] 04-23-2022 09:49-0500 Diastolic blood pressure 77 mm[Hg] Juan Francisco Hutchinson APRN.STATE COMPTROLLER Work Phone: [facility] 04-23-2022 09:49-0500 Heart rate 99 /min Juan Francisco Hutchinson APRN.STATE COMPTROLLER Work Phone: [facility] 04-23-2022 09:49-0500 Systolic blood pressure 113 mm[Hg] Juan Francisco Hutchinson APRN.STATE COMPTROLLER Work Phone: [facility] 03-07-2022 11:37-0500 Body temperature 98.4 [degF] Cyn Ramires MD Work Phone: [facility] 03-07-2022 11:37-0500 Diastolic blood pressure 70 mm[Hg] Cyn Ramires MD Work Phone: [facility] 03-07-2022 11:37-0500 Heart rate 106 /min Cyn Ramires MD Work Phone: [facility] 03-07-2022 11:37-0500 SaO2% (BldA) [Mass fraction] 98 % Cyn Ramires MD Work Phone: [facility] 03-07-2022 11:37-0500 Systolic blood pressure 113 mm[Hg] Cyn Ramires MD Work Phone: [facility] 02-14-2022 12:23-0500 Body temperature 96.8 [degF] Treatment Rej Work Phone: [facility] 02-14-2022 12:23-0500 Diastolic blood pressure 89 mm[Hg] Treatment Rej Work Phone: [facility] 02-14-2022 12:23-0500 Heart rate 102 /min Treatment Rej Work Phone: [facility] 02-14-2022 12:23-0500 Systolic blood pressure 134 mm[Hg] Treatment Rej Work Phone: [facility] 01-25-2022 14:37-0500 Body temperature 98.6 [degF] Juan Francisco Hutchinson APRN.STATE COMPTROLLER Work Phone: [facility] 01-25-2022 14:37-0500 Body weight 106.82 kg Juan Francisco Hutchinson APRN.STATE COMPTROLLER Work Phone: [facility] 01-25-2022 14:37-0500 Diastolic blood pressure 67 mm[Hg] Juan Francisco Hutchinson APRN.STATE COMPTROLLER Work Phone: [facility] 01-25-2022 14:37-0500 Heart rate 109 /min Juan Francisco Hutchinson APRN.STATE COMPTROLLER Work Phone: [facility] 01-25-2022 14:37-0500 SaO2% (BldA) [Mass fraction] 96 % Juan Francisco Hutchinson APRN.STATE COMPTROLLER Work Phone: [facility] 01-25-2022 14:37-0500 Systolic blood pressure 115 mm[Hg] Juan Francisco Hutchinson APRN.STATE COMPTROLLER Work Phone: [facility] 01-18-2022 10:30-0500 Body temperature 96.91 [degF] Treatment Rej Work Phone: [facility] 01-18-2022 10:30-0500 Diastolic blood pressure 86 mm[Hg] Treatment Rej Work Phone: [facility] 01-18-2022 10:30-0500 Heart rate 108 /min Treatment Rej Work Phone: [facility] 01-18-2022 10:30-0500 Systolic blood pressure 125 mm[Hg] Treatment Rej Work Phone: [facility] 12-27-2021 09:25-0500 Body temperature 97.5 [degF] Sylvia Mancilla EDUCATIONAL RESOURCE COORDINATOR.STATE COMPTROLLER Work Phone: [facility] 12-27-2021 09:25-0500 Body weight 105.01 kg Sylvia Mancilla APRN.STATE COMPTROLLER Work Phone: [facility] 12-27-2021 09:25-0500 Diastolic blood pressure 74 mm[Hg] Sylvia Mancilla APRN.STATE COMPTROLLER Work Phone: [facility] 12-27-2021 09:25-0500 Heart rate 103 /min Sylvia Mancilla APRN.STATE COMPTROLLER Work Phone: [facility] 12-27-2021 09:25-0500 SaO2% (BldA) [Mass fraction] 98 % Sylvia Mancilla APRN.STATE COMPTROLLER Work Phone: [facility] 12-27-2021 09:25-0500 Systolic blood pressure 116 mm[Hg] Sylvia Mancilla APRN.STATE COMPTROLLER Work Phone: [facility] 12-06-2021 13:34-0400 Body temperature 97.11 [degF] Treatment Rej Work Phone: [facility] 12-06-2021 13:34-0400 Diastolic blood pressure 88 mm[Hg] Treatment Rej Work Phone: [facility] 12-06-2021 13:34-0400 Heart rate 92 /min Treatment Rej Work Phone: [facility] 12-06-2021 13:34-0400 Respiratory rate 18 /min Treatment Rej Work Phone: [facility] 12-06-2021 13:34-0400 Systolic blood pressure 199 mm[Hg] Treatment Rej Work Phone: [facility] 11-15-2021 13:08-0400 Body height 181 cm Cyn Ramires MD Work Phone: [facility] 11-15-2021 13:08-0400 Body temperature 98.71 [degF] Cyn Ramires MD Work Phone: [facility] 11-15-2021 13:08-0400 Body weight 102.78 kg Cyn Ramires MD Work Phone: [facility] 11-15-2021 13:08-0400 Diastolic blood pressure 77 mm[Hg] Cyn Ramires MD Work Phone: [facility] 11-15-2021 13:08-0400 Heart rate 100 /min Cyn Ramires MD Work Phone: [facility] 11-15-2021 13:08-0400 SaO2% (BldA) [Mass fraction] 98 % Cyn Ramires MD Work Phone: [facility] 11-15-2021 13:08-0400 Systolic blood pressure 118 mm[Hg] Cyn Ramires MD Work Phone: [facility] 10-26-2021 13:20-0400 Body temperature 97.7 [degF] Juan Francisco Hutchinson APRN.STATE COMPTROLLER Work Phone: [facility] 10-26-2021 13:20-0400 Body weight 102.97 kg Juan Francisco Hutchinson APRN.CNP Work Phone: [facility] 10-26-2021 13:20-0400 Diastolic blood pressure 88 mm[Hg] Juan Francisco Hutchinson APRN.STATE COMPTROLLER Work Phone: [facility] 10-26-2021 13:20-0400 Heart rate 100 /min Juan Francisco Hutchinson APRN.STATE COMPTROLLER Work Phone: [facility] 10-26-2021 13:20-0400 SaO2% (BldA) [Mass fraction] 97 % Juan Francisco Hutchinson APRN.STATE COMPTROLLER Work Phone: [facility] 10-26-2021 13:20-0400 Systolic blood pressure 117 mm[Hg] Juan Francisco Hutchinson APRN.STATE COMPTROLLER Work Phone: [facility] 10-26-2021 11:28-0400 Body temperature 97.59 [degF] Treatment Rej Work Phone: [facility] 10-26-2021 11:28-0400 Diastolic blood pressure 82 mm[Hg] Treatment Rej Work Phone: [facility] 10-26-2021 11:28-0400 Heart rate 108 /min Treatment Rej Work Phone: [facility] 10-26-2021 11:28-0400 Systolic blood pressure 133 mm[Hg] Treatment Rej Work Phone: [facility] 10-25-2021 10:01-0400 Body temperature 98.2 [degF] Sylvia Mancilla APRN.STATE COMPTROLLER Work Phone: [facility] 10-25-2021 10:01-0400 Body weight 102.78 kg Sylvia Mancilla APRN.STATE COMPTROLLER Work Phone: [facility] 10-25-2021 10:01-0400 Diastolic blood pressure 87 mm[Hg] Sylvia Mancilla APRN.STATE COMPTROLLER Work Phone: [facility] 10-25-2021 10:01-0400 Heart rate 102 /min Sylvia Mancilla APRN.STATE COMPTROLLER Work Phone: [facility] 10-25-2021 10:01-0400 SaO2% (BldA) [Mass fraction] 97 % Sylvia Mancilla APRN.STATE COMPTROLLER Work Phone: [facility] 10-25-2021 10:01-0400 Systolic blood pressure 112 mm[Hg] Sylvia Charo HENLEY.STATE COMPTROLLER Work Phone: [facility] 09-06-2021 12:40-0400 Body temperature 97.7 [degF] Treatment Rej Work Phone: [facility] 09-06-2021 12:40-0400 Body weight 101.88 kg Treatment Rej Work Phone: [facility] 09-06-2021 12:40-0400 Diastolic blood pressure 73 mm[Hg] Treatment Rej Work Phone: [facility] 09-06-2021 12:40-0400 Heart rate 109 /min Treatment Rej Work Phone: [facility] 09-06-2021 12:40-0400 Systolic blood pressure 111 mm[Hg] Treatment Rej Work Phone: [facility] 07-26-2021 11:03-0400 Body temperature 97.3 [degF] Treatment Rej Work Phone: [facility] 07-26-2021 11:03-0400 Diastolic blood pressure 83 mm[Hg] Treatment Rej Work Phone: [facility] 07-26-2021 11:03-0400 Heart rate 99 /min Treatment Rej Work Phone: [facility] 07-26-2021 11:03-0400 Respiratory rate 18 /min Treatment Rej Work Phone: [facility] 07-26-2021 11:03-0400 Systolic blood pressure 126 mm[Hg] Treatment Rej Work Phone: [facility] 07-05-2021 08:31-0400 Body temperature 98.1 [degF] Treatment Rej Work Phone: [facility] 07-05-2021 08:31-0400 Diastolic blood pressure 87 mm[Hg] Treatment Rej Work Phone: [facility] 07-05-2021 08:31-0400 Heart rate 103 /min Treatment Rej Work Phone: [facility] 07-05-2021 08:31-0400 Respiratory rate 18 /min Treatment Rej Work Phone: [facility] 07-05-2021 08:31-0400 Systolic blood pressure 121 mm[Hg] Treatment Rej Work Phone: [facility] 06-14-2021 08:25-0400 Body height 181 cm Cyn Ramires MD Work Phone: [facility] 06-14-2021 08:25-0400 Body temperature 98.01 [degF] Cyn Ramires MD Work Phone: [facility] 06-14-2021 08:25-0400 Diastolic blood pressure 74 mm[Hg] Cyn Ramires MD Work Phone: [facility] 06-14-2021 08:25-0400 Heart rate 90 /min Cyn Ramires MD Work Phone: [facility] 06-14-2021 08:25-0400 Systolic blood pressure 108 mm[Hg] Cyn Ramires MD Work Phone: [facility] 05-17-2021 12:31-0400 Body temperature 97.2 [degF] Treatment Rej Work Phone: [facility] 05-17-2021 12:31-0400 Diastolic blood pressure 82 mm[Hg] Treatment Rej Work Phone: [facility] 05-17-2021 12:31-0400 Heart rate 94 /min Treatment Rej Work Phone: [facility] 05-17-2021 12:31-0400 SaO2% (BldA) [Mass fraction] 97 % Treatment Rej Work Phone: [facility] 05-17-2021 12:31-0400 Systolic blood pressure 124 mm[Hg] Treatment Rej Work Phone: [facility] 05-17-2021 11:09-0400 Body temperature 98.01 [degF] Juan Francisco Hutchinson APRN.STATE COMPTROLLER Work Phone: [facility] 05-17-2021 11:09-0400 Diastolic blood pressure 72 mm[Hg] Juan Francisco Hutchinson APRN.STATE COMPTROLLER Work Phone: [facility] 05-17-2021 11:09-0400 Heart rate 88 /min Juan Francisco Hutchinson APRN.STATE COMPTROLLER Work Phone: [facility] 05-17-2021 11:09-0400 SaO2% (BldA) [Mass fraction] 98 % Juan Francisco Hutchinson EDUCATIONAL RESOURCE COORDINATOR.STATE COMPTROLLER Work Phone: [facility] 05-17-2021 11:09-0400 Systolic blood pressure 120 mm[Hg] Juan Francisco Hutchinson EDUCATIONAL RESOURCE COORDINATOR.STATE COMPTROLLER Work Phone: [facility] 02-02-2021 10:15-0500 Body height 182.88 cm Kylie Shawault Other [employer] Other 02-02-2021 10:15-0500 Body temperature 97.4 [degF] Kylie Alex Other [employer] Other 02-02-2021 10:15-0500 Respiratory rate 18 /min Kylie Shawault Other [employer] Other 02-02-2021 10:15-0500 SaO2% (BldA) [Mass fraction] 92 % Kylie Shawault Other [employer] Other Encounters Encounter Date Encounter Type Care Provider Facility Start: 04-01-2023 Telephone encounter Linette figueroa APRN.STATE COMPTROLLER Work Phone: Hematology/Oncology Comment on above: Lab Orders Start: 03-29-2023 End: 03-29-2023 ambulatory LINETTE SKINNER Not Available Start: 03-29-2023 Refill Linette Skinner [employer] Work Phone: [facility] Comment on above: COVID-19 Start: 03-29-2023 End: 03-29-2023 Office outpatient visit 15 minutes Linette M Banner [employer] Work Phone: [facility] Comment on above: COVID-19 (Primary Dx ) Start: 03-28-2023 End: 03-28-2023 Office outpatient visit 25 minutes Kylie Nunes APRN.STATE COMPTROLLER Work Phone: Pulmonary Medicine Comment on above: Restrictive lung dis ease (Primary Dx); Chronic cough; Post-nasal drip; Hoarseness; Dysphagia, unspecified type; History of pulmonary embolism Start: 03-28-2023 End: 03-28-2023 ambulatory ELLA CHAN Pulmonary Medicine Comment on above: Spirometry Start: 03-28-2023 End: 03-28-2023 Patient encounter procedure Pulm Lab [facility] 2 Work Phone: JANAE ORTIZ [facility] Start: 03-20-2023 End: 03-20-2023 ambulatory ALEXSANDER LEDEZMA Facility:[facility] Start: 03-07-2023 End: 03-07-2023 ambulatory JUAN FRANCISCO HUTCHINSON Facility:[facility] Start: 02-25-2023 End: 02-25-2023 ambulatory LINETTE SKINNER Not Available Start: 02-19-2023 End: 02-19-2023 ambulatory ALEXSANDER LEDEZMA Facility:[facility] Start: 02-12-2023 End: 02-12-2023 ambulatory SHEILA LIN Not Available Start: 01-29-2023 End: 01-29-2023 Departed Referred MD Jose Vail Work Phone: [facility] [place] Work Phone: Start: 01-29-2023 End: 01-29-2023 ambulatory MD Jose Vail Work Phone: [employer] Other Start: 01-29-2023 Office outpatient vi sit 15 minutes [facility]ke [facility] Start: 01-28-2023 End: 01-28-2023 ambulatory ALEXSANDER LEDEZMA Facility:[facility] Start: 01-28-2023 Telephone encounter Alexsander schmidt MD Work Phone: Hematology/Oncology Comment on above: Orders Start: 01-06-2023 Refill Juan Francisco Hutchinson EDUCATIONAL RESOURCE COORDINATOR.STATE COMPTROLLER Work Phone: Palliative Medicine Comment on above: [...] encounter procedure Alexsander Ledezma MD Work Phone: [place] Start: 12-31-2022 Chart abstracting Alexsander kumar MD Work Phone: Hematology/Oncology Start: 12-20-2022 End: 12-20-2022 ambulatory JUAN FRANCISCO HUTCHINSON Facility:[facility] Start: 12-16-2022 ambulatory Summer Carver MD Work [...] above: Appointment Start: 11-13-2022 Refill Sylvia OTT RN.STATE COMPTROLLER Work Phone: Hematology Comment on above: Refill Request Start: 11-08-2022 Refill Cyn Ramires MD Work Phone: Hematology Comment on above: Refill Request Start: 11-05-2022 Refill Charlee delvalle EDUCATIONAL RESOURCE COORDINATOR.STATE COMPTROLLER Work Phone: [facility] Comment on above: Refill Request Start: 10-25-2022 Refill Cyn Ramires MD Work Phone: Hematology Comment on above: Refill Request Start: 10-23-2022 ambulatory Juan Francisco Hutchinson EDUCATIONAL RESOURCE COORDINATOR.STATE COMPTROLLER Work Phone: Palliative Medicine Comment on above: Lyrica Start: 10-18-2022 Telephone encounter Kylie Mosher RN [facility] Comment on above: Insurance Authorizat ion Start: 10-18-2022 End: 10-18-2022 ambulatory JUAN FRANCISCO HUTCHINSON Facility:[facility] Start: 10-18-2022 End: 10-18-2022 Patient encounter procedure Juan Francisco Hutchinson APRN.STATE COMPTROLLER Work Phone: Palliative Medicine Comment on above: Palliative care by s pecialist (Primary Dx); Nodular sclerosing Hodgkin's lymphoma, unspecified body region (HCC); Cancer related pain; Opioid use agreement exists; Muscle cramps Start: 10-18-2022 End: 10-18-2022 Nursing evaluation of patient and report Nurse Derm [facility] Work Phone: Dermatology [place] Comment on above: Hidradenitis suppura tiva (Primary Dx); Painful skin lesion Start: 10-08-2022 Refill Juan Francisco Hutchinson APRN.STATE COMPTROLLER Work Phone: [facility] Comment on above: Refill Request Start: 10-06-2022 Refill Juan Francisco Hutchinson APRN.STATE COMPTROLLER Work Phone: [facility] Comment on above: Refill Request Start: 10-01-2022 Refill Cyn Ramires MD Work Phone: Hematology Comment on above: Refill Request Start: 09-13-2022 End: 09-13-2022 ambulatory SUMMER CARVER Facility:[facility] Start: 09-13-2022 End: 09-13-2022 Patient encounter procedure [...] Refill Request Start: 08-22-2022 End: 08-22-2022 ambulatory CNY RAMIRES Facility:[facility] Start: 08-22-2022 End: 08-22-2022 ambulatory Cyn Ramires MD Work Phone: Hematology Comment on above: 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) Start: 08-22-2022 End: 08-22-2022 Patient encounter procedure Cyn Ramires MD Work Phone: JANAE ORTIZ [facility] Start: 08-14-2022 End: 08-14-2022 ambulatory CYN RAMIRES Facility:[facility] Start: 08-13-2022 Refill Juan Francisco Hutchinson APRN.CNP Work Phone: [facility] Palliative Medicine Comment on above: Refill Request Start: 08-09-2022 Refill Cyn Ramires MD Work Phone: Hematology Comment on above: Refill Request Start: 08-07-2022 Refill Cyn Ramires MD Work Phone: Hematology Comment on above: Refill Request Start: 08-02-2022 Telephone encounter Ella schafer EDUCATIONAL RESOURCE COORDINATOR.STATE COMPTROLLER Work Phone: Pulmonary Medicine Comment on above: Patient Update Start: 08-01-2022 End: 08-01-2022 ambulatory ELLA CHAN Facility:[facility] Start: 08-01-2022 End: 08-01-2022 Patient encounter procedure Ella Chan EDUCATIONAL RESOURCE COORDINATOR.STATE COMPTROLLER Work Phone: Pulmonary Medicine Comment on above: Chronic cough (Prima ry Dx); Productive cough; Dyspnea on exertion; Opacity of lung on imaging study Start: 07-31-2022 End: 07-31-2022 ambulatory NOVA BRIDGES Facility:[facility] Start: 07-25-2022 ambulatory Nova Bridges EDUCATIONAL RESOURCE COORDINATOR.STATE COMPTROLLER Work Phone: [facility] Start: 07-25-2022 Patient encounter procedure Nova Bridges EDUCATIONAL RESOURCE COORDINATOR.STATE COMPTROLLER Work Phone: Dermatology [place] Comment on above: Appointment Start: 07-24-2022 Refill Cyn Ramires MD Work Phone: Hematology Comment on above: Refill Request Start: 07-22-2022 ambulatory Cyn Ramires MD Work Phone: Hematology Comment on above: Ativan Start: 07-19-2022 End: 07-19-2022 ambulatory CYN RAMIRES Facility:[facility] Start: 07-19-2022 End: 07-19-2022 Patient encounter procedure Juan Francisco Hutchinson EDUCATIONAL RESOURCE COORDINATOR.STATE COMPTROLLER Work Phone: Palliative Medicine Comment on above: Palliative care by s pecialist (Primary Dx); Opioid use agreement exists; Cancer related pain; Chemotherapy-induced neuropathy (HCC); 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); Muscle cramps Start: 07-18-2022 End: 07-18-2022 ambulatory Juan Francisco Hutchinson EDUCATIONAL RESOURCE COORDINATOR.STATE COMPTROLLER Work Phone: [facility] Comment on above: Nodular sclerosing H odgkin's lymphoma, unspecified body region (HCC) (Primary Dx) Start: 07-18-2022 End: 07-18-2022 Patient encounter procedure Juan Francisco Hutchinson EDUCATIONAL RESOURCE COORDINATOR.STATE COMPTROLLER Work Phone: Palliative Medicine Comment on above: Appointment Start: 07-17-2022 End: 07-17-2022 ambulatory Melissa Pycraft RT(R) Radiology Ct Scan Comment on above: Radiology CT Start: 07-17-2022 Patient encounter procedure Melissa Pycraft RT(R) [facility] Start: 07-16-2022 Refill Juan Francisco Hutchinson EDUCATIONAL RESOURCE COORDINATOR.STATE COMPTROLLER Work Phone: [facility] Comment on above: Refill Request Start: 06-21-2022 End: 06-21-[address] DOCTOR THIBODEAUX Facility: Start: 06-13-2022 Telephone encounter Ella schafer EDUCATIONAL RESOURCE COORDINATOR.STATE COMPTROLLER Work Phone: Pulmonary Medicine Comment on above: New Medication Start: 06-12-2022 End: 06-12-2022 ambulatory CYN RAMIRES Facility:[facility] Start: 06-12-2022 End: 06-12-2022 ambulatory Cyn Ramires [...] above: Appointment Start: 06-04-2022 End: 06-04-2022 ambulatory ELLA CHAN Facility:[facility] Start: 05-31-2022 End: 05-31-2022 ambulatory CYN GRACED Facility:[facility] Start: 05-31-2022 End: 05-31-2022 Subsequent hospital visit by physician Lauren [facility] Work Phone: Radiology Comment on above: Acute cough [R05.1] Start: 05-22-2022 End: 05-22-2022 ambulatory [facility] Facility:[facility] Start: 05-18-2022 End: 05-18-2022 Telemedicine consultation with patient Estrada Del Valle MD Work Phone: [facility] Start: 05-18-2022 End: 05-21-2022 ambulatory Cyn Ramires MD Work Phone: Hematology Comment on above: Labs NO SHOW (Primary Dx) Start: 05-14-2022 End: 05-14-2022 Refill Cyn Ramires MD Work Phone: Hematology Comment on above: Refill Request Start: 05-01-2022 End: 05-01-2022 ambulatory CYN RAMIRES Facility:[facility] Start: 05-01-2022 End: 05-01-2022 ambulatory Treatment 10 Delfino Rej Work Phone: Hematology Comment on above: 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) Start: 04-30-2022 End: 04-30-2022 ambulatory [place] Mikayla VAIL Facility:[facility] Start: 04-25-2022 Telephone encounter Maye garcia RN Work Phone: Radiation Oncology Comment on above: Post Radiation Treat ment Follow Up (Second attempt) Start: 04-23-2022 End: 04-23-2022 ambulatory JUAN FRANCISCO HUTCHINSON Facility:[facility] Start: 04-23-2022 End: 04-23-2022 Patient encounter procedure Juan Francisco Hutchinson EDUCATIONAL RESOURCE COORDINATOR.STATE COMPTROLLER Work Phone: Palliative Medicine Comment on above: Encounter for pallia tive care (Primary Dx); 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); Encounter for long-term (current) use of medications; Encounter for antineoplastic immunotherapy Start: 04-06-2022 End: 04-07-2022 ambulatory CYN RAMIRES Facility:[facility] Start: 04-06-2022 End: 04-06-2022 [facility] Start: 04-04-2022 End: 04-04-2022 [facility] Start: 03-30-2022 Orders Only Tracy meléndez MD Work Phone: Hematology Comment on above: 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) Start: 03-23-2022 End: 03-23-2022 [facility] encounter [facility] Comment on above: 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) Start: 03-23-2022 Radiation Oncology Note [facility] Provider [facility] Department Comment on above: RTT Injection Treatment Planning Start: 03-23-2022 End: 03-23-2022 Nursing evaluation of patient and report Nurse Cathleen Main Work Phone: Radiation Oncology Comment on above: 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); Autologous bone marrow transplantation status (HCC) Start: 03-22-2022 Telephone encounter Dary Gonzalez RN Radiation Oncology Start: 03-15-2022 Refill Lesley Figueroa on EDUCATIONAL RESOURCE COORDINATOR.STATE COMPTROLLER Work Phone: Regional Palliative Medicine Comment on above: Refill Request Start: 03-12-2022 End: 03-12-2022 ambulatory Estrada Del Valle MD Work Phone: Radiation Oncology Comment on above: 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) Start: 03-12-2022 End: 03-12-2022 Telemedicine consultation with patient Estrada Del Valle MD Work Phone: [facility] Start: 03-07-2022 End: 03-07-2022 ambulatory Cyn Ramires MD Work Phone: Hematology Comment on above: Chemotherapy-induced neuropathy (HCC) (Primary Dx) Start: 03-07-2022 End: 03-07-2022 Patient encounter procedure Cyn Ramires MD Work Phone: [facility] Start: 03-05-2022 Refill Sylvia OTT RN.STATE COMPTROLLER Work Phone: Hematology Comment on above: Refill Request Start: 02-14-2022 End: 02-14-2022 ambulatory Treatment 11 Delfino Rej Work Phone: Hematology Comment on above: 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); Encounter for antineoplastic immunotherapy Start: 02-09-2022 Orders Only Antonia Lisa MD Work Phone: [facility] Provider Hemonc Start: 01-25-2022 End: 01-26-2022 ambulatory JOSE Mikayla VAIL Facility:[facility] Start: 01-25-2022 End: 01-25-2022 Patient encounter procedure Juan Francisco Hutchinson EDUCATIONAL RESOURCE COORDINATOR.STATE COMPTROLLER Work Phone: Regional Palliative Medicine Comment on above: Encounter for pallia tive care (Primary Dx); Opioid use agreement exists; Anxiety; Cancer related pain; Chemotherapy-induced neuropathy (HCC); 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); Muscle cramps Start: 01-22-2022 Refill Juan Francisco Hutchinson APRN.STATE COMPTROLLER Work Phone: [facility] Pall[facility] Medicine Comment on above: Refill Request [...] above: Appointment Start: 01-15-2022 Refill Cheryl velázquez EDUCATIONAL RESOURCE COORDINATOR.STATE COMPTROLLER Work Phone: [facility] Palliative Medicine Comment on above: Refill Request [...] End: 12-27-2021 Patient encounter procedure Sylvia Mancilla APRN.STATE COMPTROLLER Work Phone: [facility] Start: 12-17-2021 Refill Juan Francisco Hutchinson APRN.STATE COMPTROLLER Work Phone: [facility] Palliative Medicine Comment on above: Refill Request Start: 12-11-2021 Refill Cyn Ramires MD Work Phone: Hematology Comment on above: Refill Request Start: 12-07-2021 End: 12-07-2021 Patient encounter procedure Nova Bridges EDUCATIONAL RESOURCE COORDINATOR.STATE COMPTROLLER Work Phone: Dermatology [place] Comment on above: Acne vulgaris (Prima ry Dx) Start: 12-06-2021 End: 12-06-2021 ambulatory Treatment 5 Delfino Rej Work Phone: Hematology Comment on above: 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) Start: 12-04-2021 Refill Cyn Ramires MD Work Phone: Hematology Comment on above: Refill Request Start: 12-03-2021 Refill Sylvia OTT RN.STATE COMPTROLLER Work Phone: Hematology Comment on above: Refill [...] Request Start: 10-31-2021 Refill Juan Francisco Hutchinson APRN.STATE COMPTROLLER Work Phone: [facility] Palliative Medicine Comment on above: Refill Request Start: 10-26-2021 End: 10-26-2021 Patient encounter procedure Juan Francisco Hutchinson EDUCATIONAL RESOURCE COORDINATOR.STATE COMPTROLLER Work Phone: [facility] Palliative Medicine Comment on above: Encounter for [...] End: 10-25-2021 Patient encounter procedure Sylvia Mancilla EDUCATIONAL RESOURCE COORDINATOR.STATE COMPTROLLER Work Phone: [facility] Start: 10-17-2021 ambulatory Cyn Ramires MD Work Phone: Hematology Comment on above: Insurance Start: 10-16-2021 Refill Cheryl velázquez EDUCATIONAL RESOURCE COORDINATOR.STATE COMPTROLLER Work Phone: [facility] Palliative Medicine Comment on above: Refill Request [...] Caro Srinivasan RN Hematology Comment on above: Board Handler - Marianne Rios Follow Up Start: 09-11-2021 Refill Cyn Ramires MD Work Phone: Hematology Comment on above: Refill Request Start: 09-06-2021 End: 09-06-2021 ambulatory Treatment 3 Delfino Rej Work Phone: Hematology Comment on above: 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) Start: 09-05-2021 End: 09-05-2021 Patient encounter procedure Nova Bridges EDUCATIONAL RESOURCE COORDINATOR.STATE COMPTROLLER Work Phone: Dermatology [place] Comment on above: Hidradenitis suppura tiva (Primary Dx); Painful skin lesion; Dermatofibroma of left knee Start: 09-03-2021 Refill Cyn Ramires MD Work Phone: Hematology Comment on above: Refill Request Start: 09-02-2021 Refill Gurpreet Rios Work Phone: [facility] Pall[facility] Medicine Comment on above: Refill Request Start: 08-30-2021 Refill Cyn Ramires MD Work Phone: Hematology Comment on above: Refill Request Start: 08-16-2021 End: 08-16-2021 ambulatory Treatment 6 Delfino Rej Work Phone: Hematology Comment on above: 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) Start: 08-14-2021 Refill Juan Francisco Hutchinson APRN.STATE COMPTROLLER Work Phone: [facility] Palliative Medicine Comment on above: Refill Request Start: 08-03-2021 Telephone encounter Kristina Pete RN Mobile Services Comment on above: Care Coordination (P all med referral) Start: 07-31-2021 Orders Only Cyn Ramires MD Work Phone: Hematology Comment on above: Muscle cramps; Nodular sclerosis classical Hodgkin lymphoma (HCC) Start: 07-30-2021 ambulatory Juan Francisco Hutchinson EDUCATIONAL RESOURCE COORDINATOR.STATE COMPTROLLER Work Phone: [facility] Start: 07-30-2021 Patient encounter procedure Juan Francisco Hutchinson EDUCATIONAL RESOURCE COORDINATOR.STATE COMPTROLLER Work Phone: [facility] Palliative Medicine Comment on above: Saturday appointmen t Start: 07-28-2021 End: 07-28-2021 Patient encounter procedure Nova Bridges EDUCATIONAL RESOURCE COORDINATOR.STATE COMPTROLLER Work Phone: Dermatology [place] Comment on above: Hidradenitis suppura tiva (Primary Dx); Painful skin lesion Start: 07-26-2021 End: 07-26-2021 ambulatory Treatment 12 Delfino Rej Work Phone: Hematology Comment on above: 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) Start: 07-24-2021 End: 07-24-[address] [facility] Facility: Start: 2021 Refill Cyn Ramires MD [...] Request Start: 06-15-2021 Refill Juan Francisco Hutchinson APRN.STATE COMPTROLLER Work Phone: [facility] Palliative Medicine Comment on above: Refill Request [...] Start: 05-17-2021 End: 05-17-2021 Patient encounter procedure Jaun Francisco Hutchinson APRN.STATE COMPTROLLER Work Phone: [facility] Palliative Medicine Comment on above: Encounter for pallia tive care (Primary Dx); 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); Cancer related pain; Chemotherapy-induced neuropathy (HCC); Muscle cramps; Anxiety Refill Request Start: 05-17-2021 Refill Sylvia OTT RN.STATE COMPTROLLER Work Phone: Hematology Comment on above: Refill Request Start: 05-17-2021 Telephone encounter Zaira DELANEY Work Phone: Hematology Comment on above: Board Handler - O ther Start: 05-16-2021 ambulatory Cny Ramires MD Work Phone: [facility] Start: 05-16-2021 Patient encounter procedure Cyn Ramires MD Work Phone: Hematology Comment on above: Appointment 05/17 Start: 02-02-2021 End: 02-02-2021 ambulatory Kylie Johnson Other [employer] Other Start: 02-02-2021 Office outpatient vi sit 15 minutes Kylie Johnson [facility] [place] Procedures Date Procedure Procedure Detail Performing Clinician Start: 03-28-2023 Nitric oxide gas determination Ella Chan EDUCATIONAL RESOURCE COORDINATOR.STATE COMPTROLLER Work Phone: Start: 03-28-2023 Co diffusing capacity L leha Chan EDUCATIONAL RESOURCE COORDINATOR.STATE COMPTROLLER Work Phone: Start: 05-31-2022 Ct thorax w/o contra st material Cyn Ramires MD Work Phone: Start: 10-25-2021 Adult depression scr eening assessment Treatment Rej Work Phone: Start: 06-14-2021 Adult depression scr eening assessment Cyn Ramires MD Work Phone: Start: 03-08-2021 Adult depression scr eening assessment Sylvia Mancilla EDUCATIONAL RESOURCE COORDINATOR.STATE COMPTROLLER Work Phone: Start: 10-17-2018 Mammography Linette Alvarenga y RUN BOAT OPERATOR Work Phone: Plan of Treatment Date Care Activity Detail Author Start: 03-11-2024 Urine microalbumin profile [facility] Start: 08-18-2023 Influenza vaccination Influenza Vacc ine (#1) [facility] Comment on above: Postponed from 10/19 (Patient Refused) Start: 07-04-2023 Medicare Annual Well ness (AWV) Medicare Annual Wellness (AWV) [facility] Start: 06-03-2023 End: 06-03-2023 Patient encounter procedure 06/03/2023 8:30 AM EDT Office Visit [facility] [id number] [place] [id number] Jose Vail MD [address] [place] [address] [facility] Start: 04-16-2023 End: 07-16-2023 CBC W Auto Differential panel - Blood CBC + DIFF Lab Routine 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) Expected: 04/16/2023, Expires: 07/16/2023 [facility] Work Phone: Comment on above: Expected: 04/16/2023 , Expires: 07/16/2023 Start: 04-16-2023 End: 07-16-2023 Comprehensive metabolic 2000 panel - Serum or Plasma COMP METABOLIC PANEL Lab Routine 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) Expected: 04/16/2023, Expires: 07/16/2023 [facility] Work Phone: Comment on above: Expected: 04/16/2023 , Expires: 07/16/2023 Start: 04-16-2023 End: 07-16-2023 Cortisol [Mass/volume] in Serum or Plasma CORTISOL BLD Lab Routine 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) Expected: 04/16/2023, Expires: 07/16/2023 [facility] Work Phone: Comment on above: Expected: 04/16/2023 , Expires: 07/16/2023 Start: 04-16-2023 End: 07-16-2023 Erythrocyte sedimentation rate SED RATE WESTERGREN Lab Routine 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) Expected: 04/16/2023, Expires: 07/16/2023 [facility] Work Phone: Comment on above: Expected: 04/16/2023 , Expires: 07/16/2023 Start: 02-18-2023 Depression Assessment Depression Ass essment [facility] Start: 01-29-2023 Bacteria identified in Urine by Culture [facility] Start: 01-28-2023 End: 04-29-2023 Cortisol [Mass/volume] in Serum or Plasma [facility] Work Phone: Comment on above: Expected: 01/28/2023 , Expires: 04/29/2023 Start: 10-25-2022 Adult depression screening assessment DEPRESSION SCREENING [facility] Start: 10-21-2022 Screening for malign ant neoplasm of cervix [facility] Start: 10-19-2022 Influenza vaccination C [facility] Start: 08-01-2022 End: 10-01-2022 Bacteria identified in Unspecified specimen by Respiratory culture RESP CULTURE + STAIN Microbiology Routine Productive cough Expected: 08/01/2022, Expires: 10/01/2022 [facility] Work Phone: Comment on above: Expected: 08/01/2022 , Expires: 10/01/2022 Start: 2022 Mammography [facility] Start: 2022 Screening for malign ant neoplasm of breast [facility] Start: 06-14-2022 Adult depression screening assessment DEPRESSION SCREENING [facility] Start: 04-10-2022 End: 06-10-2022 Comprehensive metabolic 2000 panel - Serum or Plasma COMP METABOLIC PANEL Lab Routine 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) Expected: 04/10/2022, Expires: 06/10/2022 [facility] Work Phone: Comment on above: Expected: 04/10/2022 , Expires: 06/10/2022 Start: 04-10-2022 End: 06-10-2022 Thyrotropin [Units/volume] in Serum or Plasma TSH BLD Lab Routine 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) Expected: 04/10/2022, Expires: 06/10/2022 [facility] Work Phone: Comment on above: Expected: 04/10/2022 , Expires: 06/10/2022 Start: 04-10-2022 End: 06-10-2022 Thyroxine (T4) free [Mass/volume] in Serum or Plasma T4 FREE/FREE THYROX Lab Routine 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) Expected: 04/10/2022, Expires: 06/10/2022 [facility] Work Phone: Comment on above: Expected: 04/10/2022 , Expires: 06/10/2022 Start: 03-08-2022 Adult depression screening assessment DEPRESSION SCREENING [facility] Start: 02-18-2022 DEPRESSION ASSESSMENT DEPRESSION ASS ESSMENT [facility] Start: 01-25-2022 End: 03-27-2022 PAIN PANEL, UR QUANT [facility] Work Phone: Comment on above: Expected: 01/25/2022 , Expires: 03/27/2022 Start: 01-18-2022 End: 03-20-2022 Comprehensive metabolic 2000 panel - Serum or Plasma COMP METABOLIC PANEL Lab Routine 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) Expected: 01/18/2022, Expires: 03/20/2022 [facility] Work Phone: Comment on above: Expected: 01/18/2022 , Expires: 03/20/2022 Start: 01-18-2022 End: 03-20-2022 Thyrotropin [Units/volume] in Serum or Plasma TSH BLD Lab Routine 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) Expected: 01/18/2022, Expires: 03/20/2022 [facility] Work Phone: Comment on above: Expected: 01/18/2022 , Expires: 03/20/2022 Start: 01-18-2022 End: 03-20-2022 Thyroxine (T4) free [Mass/volume] in Serum or Plasma T4 FREE/FREE THYROX Lab Routine 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) Expected: 01/18/2022, Expires: 03/20/2022 [facility] Work Phone: Comment on above: Expected: 01/18/2022 , Expires: 03/20/2022 Start: 11-15-2021 End: 01-15-2022 Comprehensive metabolic 2000 panel - Serum or Plasma COMP METABOLIC PANEL Lab Routine 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) Expected: 11/15/2021, Expires: 01/15/2022 [facility] Work Phone: Comment on above: Expected: 11/15/2021 , Expires: 01/15/2022 Start: 11-15-2021 End: 01-15-2022 Thyrotropin [Units/volume] in Serum or Plasma TSH BLD Lab Routine 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) Expected: 11/15/2021, Expires: 01/15/2022 [facility] Work Phone: Comment on above: Expected: 11/15/2021 , Expires: 01/15/2022 Start: 11-15-2021 End: 01-15-2022 Thyroxine (T4) free [Mass/volume] in Serum or Plasma T4 FREE/FREE THYROX Lab Routine 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) Expected: 11/15/2021, Expires: 01/15/2022 [facility] Work Phone: Comment on above: Expected: 11/15/2021 , Expires: 01/15/2022 Start: 10-26-2021 End: 12-26-2021 Comprehensive metabolic 2000 panel - Serum or Plasma COMP METABOLIC PANEL Lab Routine 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) Expected: 10/26/2021, Expires: 12/26/2021 [facility] Work Phone: Comment on above: Expected: 10/26/2021 , Expires: 12/26/2021 Start: 10-26-2021 End: 12-26-2021 Thyrotropin [Units/volume] in Serum or Plasma TSH BLD Lab Routine 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) Expected: 10/26/2021, Expires: 12/26/2021 [facility] Work Phone: Comment on above: Expected: 10/26/2021 , Expires: 12/26/2021 Start: 10-26-2021 End: 12-26-2021 Thyroxine (T4) free [Mass/volume] in Serum or Plasma T4 FREE/FREE THYROX Lab Routine 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) Expected: 10/26/2021, Expires: 12/26/2021 [facility] Work Phone: Comment on above: Expected: 10/26/2021 , Expires: 12/26/2021 Start: 10-19-2021 Influenza vaccination C [facility] Start: 09-06-2021 End: 11-06-2021 Comprehensive metabolic 2000 panel - Serum or Plasma COMP METABOLIC PANEL Lab Routine 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) Expected: 09/06/2021, Expires: 11/06/2021 [facility] Work Phone: Comment on above: Expected: 09/06/2021 , Expires: 11/06/2021 Start: 09-06-2021 End: 11-06-2021 Thyrotropin [Units/volume] in Serum or Plasma TSH BLD Lab Routine 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) Expected: 09/06/2021, Expires: 11/06/2021 [facility] Work Phone: Comment on above: Expected: 09/06/2021 , Expires: 11/06/2021 Start: 09-06-2021 End: 11-06-2021 Thyroxine (T4) free [Mass/volume] in Serum or Plasma T4 FREE/FREE THYROX Lab Routine 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) Expected: 09/06/2021, Expires: 11/06/2021 [facility] Work Phone: Comment on above: Expected: 09/06/2021 , Expires: 11/06/2021 Start: 02-18-2021 DEPRESSION ASSESSMENT DEPRESSION ASS ESSMENT [facility] Start: 10-19-2020 Influenza vaccination INFLUENZA (#1) [facility] Start: 09-08-2019 HPV TESTING HPV TESTING [facility] Start: 09-08-2019 Screening for malign ant neoplasm of cervix HPV Testing [facility] Start: 10-26-2017 PAP TESTING PAP TESTING [facility] Start: 10-26-2017 Screening for malign ant neoplasm of cervix Pap Testing [facility] Start: 06-17-2015 PNEUMOCOCCAL (2 - PP SV23 if available, else PCV20) PNEUMOCOCCAL (2 - PPSV23 if available, else PCV20) [facility] Start: 06-17-2015 PNEUMOCOCCAL (2 - PP SV23 or PCV20) PNEUMOCOCCAL (2 - PPSV23 or PCV20) [facility] Start: 08-11-2014 PNEUMOCOCCAL (2 - PP SV23 if available, else PCV20) PNEUMOCOCCAL (2 - PPSV23 if available, else PCV20) [facility] Start: 08-11-2014 PNEUMOCOCCAL (2 - PP SV23 or PCV20) PNEUMOCOCCAL (2 - PPSV23 or PCV20) [facility] Start: 08-11-2014 Pneumococcal vaccination [facility] Start: 07-12-2003 Screening for malign ant neoplasm of cervix Pap Smear [facility] Start: 2001 SHINGRIX VACCINE (1 of 2) TRINH GRIX VACCINE (1 of 2) [facility] Start: 2001 TWO PNEUMOVAX 5 YEAR S APART PRIOR TO AGE 65 (#1) TWO PNEUMOVAX 5 YEARS APART PRIOR TO AGE 65 (#1) [facility] Start: 1994 COVID-19 VACCINE (1) COVID-19 VACCIN E (1) [facility] Start: 07-12-1987 COVID-19 VACCINE (#1) COVID-19 VACCI NE (#1) [facility] Start: 01-11-1983 COVID-19 VACCINE (#1) COVID-19 VACCI NE (#1) [facility] End: 03-30-2023 CBC W Auto Differential panel - Blood CBC + DIFF Lab Routine 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 Occurrences starting 03/31/2022 until 03/30/2023 [facility] Work Phone: Comment on above: Every other week for 25 Occurrences starting 03/31/2022 until 03/30/2023 Comprehensive metabo lic 2000 panel - Serum or Plasma COMP METABOLIC PANEL Lab Routine 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) Ordered: 05/17/2021 [facility] Work Phone: Comment on above: Ordered: 05/17/2021 End: 03-30-2023 Comprehensive metabolic 2000 panel - Serum or Plasma COMP METABOLIC PANEL Lab Routine 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 Occurrences starting 03/31/2022 until 03/30/2023 [facility] Work Phone: Comment on above: Every other week for 25 Occurrences starting 03/31/2022 until 03/30/2023 End: 12-27-2022 Echocardiography ECHO Cardiology Routine Nodular sclerosing Hodgkin's lymphoma, unspecified body region (HCC) JOE (dyspnea on exertion) Chronic cough 1 Occurrences starting 12/27/2021 until 12/27/2022 [facility] Work Phone: Comment on above: 1 Occurrences starti ng 12/27/2021 until 12/27/2022 End: 09-01-2023 LUNG DIFFUSION CAPACITY (DLCO) LUNG DIFFUSION CAPACITY (DLCO) PFT Routine Chronic cough 1 Occurrences starting 08/02/2022 until 09/01/2023 [facility] Work Phone: Comment on above: 1 Occurrences starti ng 08/02/2022 until 09/01/2023 LUNG DIFFUSION CAPAC ITY (DLCO) LUNG DIFFUSION CAPACITY (DLCO) PFT Routine Chronic cough 03/28/2023 1:39 PM EST [facility] Work Phone: End: 09-01-2023 NITRIC OXIDE, EXHALED NITRIC OXIDE, EXHALED PFT Routine Bronchitis 1 Occurrences starting 08/02/2022 until 09/01/2023 [facility] Work Phone: Comment on above: 1 Occurrences starti ng 08/02/2022 until 09/01/2023 End: 07-14-2022 NM PET/CT SKULL-THIGH SUBSEQUENT NM PET/CT SKULL-THIGH SUBSEQUENT Radiology Routine Hodgkin lymphoma, unspecified Hodgkin lymphoma type, unspecified body region (HCC) 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) 1 Occurrences starting 06/14/2021 until 07/14/2022 [facility] Work Phone: Comment on above: 1 Occurrences starti ng 06/14/2021 until 07/14/2022 End: 12-15-2022 NM PET/CT SKULL-THIGH SUBSEQUENT NM PET/CT SKULL-THIGH SUBSEQUENT Radiology Routine Nodular sclerosing Hodgkin's lymphoma, unspecified body region (HCC) 1 Occurrences starting 11/15/2021 until 12/15/2022 [facility] Work Phone: Comment on above: 1 Occurrences starti ng 11/15/2021 until 12/15/2022 End: 08-17-2023 NM PET/CT SKULL-THIGH SUBSEQUENT NM PET/CT SKULL-THIGH SUBSEQUENT Radiology Routine Nodular sclerosing Hodgkin's lymphoma, unspecified body region (HCC) 1 Occurrences starting 07/18/2022 until 08/17/2023 [facility] Work Phone: Comment on above: 1 Occurrences starti ng 07/18/2022 until 08/17/2023 End: 09-21-2023 NM PET/CT SKULL-THIGH SUBSEQUENT NM PET/CT SKULL-THIGH SUBSEQUENT Radiology Routine 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) 1 Occurrences starting 08/22/2022 until 09/21/2023 [facility] Work Phone: Comment on above: 1 Occurrences starti ng 08/22/2022 until 09/21/2023 End: 01-31-2024 NM PET/CT SKULL-THIGH SUBSEQUENT NM PET/CT SKULL-THIGH SUBSEQUENT Radiology Routine 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) 1 Occurrences starting 01/01/2023 until 01/31/2024 [facility] Work Phone: Comment on above: 1 Occurrences starti ng 01/01/2023 until 01/31/2024 End: 09-01-2023 SPIROMETRY - BASELINE AND POST DILATOR SPIROMETRY - BASELINE AND POST DILATOR PFT Routine Chronic cough 1 Occurrences starting 08/02/2022 until 09/01/2023 [facility] Work Phone: Comment on above: 1 Occurrences starti ng 08/02/2022 until 09/01/2023 SPIROMETRY - BASELIN E AND POST DILATOR SPIROMETRY - BASELINE AND POST DILATOR PFT Routine Chronic cough 03/28/2023 1:39 PM EST [facility] Work Phone: T4 FREE/FREE THYROX T4 FREE/FREE THYROX Lab Routine 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) Ordered: 05/17/2021 [facility] Work Phone: Comment on above: Ordered: 05/17/2021 Thyrotropin [Units/volume] in Serum or Plasma TSH BLD Lab Routine 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) Ordered: 05/17/2021 [facility] Work Phone: Comment on above: Ordered: 05/17/2021 End: 03-30-2023 Thyrotropin [Units/volume] in Serum or Plasma TSH BLD Lab Routine 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 Occurrences starting 03/31/2022 until 03/30/2023 [facility] Work Phone: Comment on above: Every other week for 25 Occurrences starting 03/31/2022 until 03/30/2023 End: 03-30-2023 Thyroxine (T4) free [Mass/volume] in Serum or Plasma T4 FREE/FREE THYROX Lab Routine 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 Occurrences starting 03/31/2022 until 03/30/2023 [facility] Work Phone: Comment on above: Every other week for 25 Occurrences starting 03/31/2022 until 03/30/2023 [facility] Immunizations Immunization Date Immunization Notes Care Provider Kun arellano 12-16-2014 influenza, injectabl e, quadrivalent, preservative free Sylvia Mancilla EDUCATIONAL RESOURCE COORDINATOR.STATE COMPTROLLER Work Phone: [facility] 12-16-2014 influenza virus vacc ine, unspecified formulation Charlee Merrittjolene EDUCATIONAL RESOURCE COORDINATOR.STATE COMPTROLLER Work Phone: [facility] 06-16-2014 hepatitis A and hepa titis B vaccine Sylvia Gross EDUCATIONAL RESOURCE COORDINATOR.STATE COMPTROLLER Work Phone: [facility] 06-16-2014 pneumococcal conjuga te vaccine, 13 valent Sylvia Gross EDUCATIONAL RESOURCE COORDINATOR.STATE COMPTROLLER Work Phone: [facility] 03-11-2014 diphtheria and tetan us toxoids, adsorbed for pediatric use Sylvia Gross EDUCATIONAL RESOURCE COORDINATOR.STATE COMPTROLLER Work Phone: [facility] 03-11-2014 haemophilus influenz ae type b vaccine, PRP-OMP conjugate Sylvia Gross EDUCATIONAL RESOURCE COORDINATOR.STATE COMPTROLLER Work Phone: [facility] 03-11-2014 meningococcal polysaccharide vaccine (MPSV4) Sylvia Gross EDUCATIONAL RESOURCE COORDINATOR.STATE COMPTROLLER Work Phone: [facility] 03-11-2014 pneumococcal conjuga te vaccine, 13 valent Sylvia Gross EDUCATIONAL RESOURCE COORDINATOR.STATE COMPTROLLER Work Phone: [facility] 03-11-2014 poliovirus vaccine, inactivated Sylvia Gross EDUCATIONAL RESOURCE COORDINATOR.STATE COMPTROLLER Work Phone: [facility] 03-11-2014 tetanus toxoid, adsorbed Josi ka Gross EDUCATIONAL RESOURCE COORDINATOR.STATE COMPTROLLER Work Phone: [facility] 03-11-2014 tetanus toxoid, redu jessica diphtheria toxoid, and acellular pertussis vaccine, adsorbed Sylvia Gross EDUCATIONAL RESOURCE COORDINATOR.STATE COMPTROLLER Work Phone: [facility] 12-21-2013 diphtheria and tetan us toxoids, adsorbed for pediatric use Sylvia Gross EDUCATIONAL RESOURCE COORDINATOR.STATE COMPTROLLER Work Phone: [facility] 12-21-2013 haemophilus influenz ae type b vaccine, PRP-OMP conjugate Sylvia Gross EDUCATIONAL RESOURCE COORDINATOR.STATE COMPTROLLER Work Phone: [facility] 12-21-2013 hepatitis A and hepa titis B vaccine Sylvia Gross EDUCATIONAL RESOURCE COORDINATOR.STATE COMPTROLLER Work Phone: [facility] 12-21-2013 influenza, injectabl e, quadrivalent, preservative free Sylvia Gross EDUCATIONAL RESOURCE COORDINATOR.STATE COMPTROLLER Work Phone: [facility] 12-21-2013 pneumococcal conjuga te vaccine, 13 valent Sylvia Gross EDUCATIONAL RESOURCE COORDINATOR.STATE COMPTROLLER Work Phone: [facility] 12-21-2013 poliovirus vaccine, inactivated Sylvia Gross EDUCATIONAL RESOURCE COORDINATOR.STATE COMPTROLLER Work Phone: [facility] 10-14-2013 haemophilus influenz ae type b vaccine, PRP-OMP conjugate Sylvia Gross EDUCATIONAL RESOURCE COORDINATOR.STATE COMPTROLLER Work Phone: [facility] 10-14-2013 hepatitis A and hepa titis B vaccine Sylvia Gross EDUCATIONAL RESOURCE COORDINATOR.STATE COMPTROLLER Work Phone: [facility] 10-14-2013 Meningococcal Groups C and Y and Haemophilus b Tetanus Toxoid Conjugate Vaccine Sylvia Gross EDUCATIONAL RESOURCE COORDINATOR.STATE COMPTROLLER Work Phone: [facility] 10-14-2013 pneumococcal conjuga te vaccine, 13 valent Sylvia Gross EDUCATIONAL RESOURCE COORDINATOR.STATE COMPTROLLER Work Phone: [facility] 10-14-2013 poliovirus vaccine, inactivated Sylvia Gross EDUCATIONAL RESOURCE COORDINATOR.STATE COMPTROLLER Work Phone: [facility] 10-14-2013 tetanus toxoid, redu jessica diphtheria toxoid, and acellular pertussis vaccine, adsorbed Sylvia Gross EDUCATIONAL RESOURCE COORDINATOR.STATE COMPTROLLER Work Phone: [facility] 09-01-2010 hepatitis B vaccine, adult dosage Sylvia Gross EDUCATIONAL RESOURCE COORDINATOR.STATE COMPTROLLER Work Phone: [facility] 04-04-2010 hepatitis B vaccine, adult dosage Sylvia Gross EDUCATIONAL RESOURCE COORDINATOR.STATE COMPTROLLER Work Phone: [facility] 03-04-2010 hepatitis B vaccine, adult dosage Sylvia Gross EDUCATIONAL RESOURCE COORDINATOR.STATE COMPTROLLER Work Phone: [facility] 11-11-2007 hepatitis B vaccine, pediatric or pediatric/adolescent dosage Sylvia Gross EDUCATIONAL RESOURCE COORDINATOR.STATE COMPTROLLER Work Phone: [facility] 10-14-2007 hepatitis B vaccine, pediatric or pediatric/adolescent dosage Sylvia Gross EDUCATIONAL RESOURCE COORDINATOR.STATE COMPTROLLER Work Phone: [facility] Payers Date Payer Category Payer Self-pay [id number] 2020 Medicaid MEDICAID [facility] MEDICAID [id number] 2020-Present [phone] [address] [place] [address] Medicaid [id number] 2020 Medicaid [id number] 2014 Medicare MEDICARE MEDICAR E A AND B [id number] 2014-Present [phone] [address] [address] [place] [address] Medicare [id number] 2014 Medicare [id number] 1982 Unknown [id number] 1982 Unknown [id number] 1982 Unknown [id number] 1982 Unknown [id number] 1982 Unknown [id number] 1959 Medicaid [id number] 1959 Medicare [id number] 1959 Medicare [id number] Unknown [id number] Social History Date Type Detail Facility Start: 01-28-2012 End: 12-31-2022 Tobacco smoking status MOIS Ex-smoker [facility] End: 01-18-2012 History of tobacco use Current smoker [facility] End: 01-18-2012 History of tobacco use Cigarette Smoker [facility] Start: 01-28-2012 End: 12-31-2022 Tobacco use and exposure Smokeless tobacco non-user [facility] Start: 03-15-2021 End: 03-28-2023 Alcohol intake Current drinker of alcohol (finding) [facility] Start: 03-15-2021 End: 07-18-2022 Alcohol intake [facility] Start: 11-18-2019 History SDOH Alcohol Frequency 2 [facility] Start: 11-18-2019 History SDOH Alcohol Std Drinks 1 [facility] Start: 03-18-2017 History SDOH Alcohol Comment 2 drinks per month [facility] Start: 1980 Sex Assigned At Female C [facility] Start: 03-20-2021 End: 12-27-2021 Exposure to SARS-CoV-2 (event) Not sure [facility] Start: 01-06-2022 End: 01-16-2022 Exposure to SARS-CoV-2 (event) Unable to assess [facility] Start: 07-18-2022 End: 08-01-2022 Tobacco use panel [facility] Adult Depression Screening Assessment 0 [facility] Start: 04-17-2021 Gender identity Identifies as female gender (finding) [facility] Start: 04-17-2021 Sexual orientation Heterosexual (fin susanne) [facility] How often to you hav e a drink containing alcohol? Monthly or less [facility] How many standard dr inks containing alcohol do you have on a typical day? 1 or 2 [facility] How often do you hav e 6 or more drinks on 1 occasion? Never [facility] History of tobacco use Passive smoker [facility] Start: 1980 Sex Assigned At Not on file N [facility] Medical Equipment Procedure Code Equipment Code Equipment Origin al Text Equipment Identifier Dates Port Inf 1 Lum Attach Cath - [id number] Start: 01-31-2012 Comment on above: Description: BARD ROXANN SÁNCHEZ Clinical Notes 03-15-2017 to 04-01-2023 Telephone Encounter - Jakob, May - 04/01/2023 10:35 AM Calderon Skinner NP - 03/29/2023 1:15 PM ESTKylie Milton APRN.[facility] - 03/28/2023 2:30 PM EST Note Date & Type Note Facility 04-01-2023 Miscellaneous Notes Formattin g of this note might be different from the original. Patient will need lab orders for Saturday04/16/23. Thanks. Jeyn Robert MA documented in this encounter [facility] 03-29-2023 History of Presen t illness Narrative Subjective Patient ID: Celso Potts is a 42 y.o. female who presents for covid +. Pt seen via telehealth using real time, two way, audio and video communication in place of an office visit. Pt gave verbal consent to this visit. Pt is currently located in her home in [place]. --- Appt for Covid + --- Onset [...] capsule; Refill: 0 documented in this encounter [facility] 03-28-2023 Instructions Kylie Nunes APRN.STATE COMPTROLLER - 03/28/2023 2:41 PM EST Continue Breo [...] any runs out. documented in this encounter [facility] 03-28-2023 History of Presen t illness [...] difficulty swallowing and persistent hoarseness. Refer to [facility] ENT for repeat flex scope and assistance with management. Will need to consider MBS as well pending evaluation 6. History of pulmonary embolism - ICD9: V12.55, ICD10: Z86.711 In the setting of malignancy. On life long anticoagulation with Xarelto. Follow up in [address] Mehul Hull have discussed the above recommendations in detail with the patient. Patient verbalizes understanding and is in agreement with plan as stated above. Patient has been instructed to call our office, their PCP, or go to the nearest emergency department for new or worsening problems, including but not limited to, increasing shortness of breath, cough, fever, or chills. 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 Kylie Nunes APRN.[facility] March 28, 2023 This note was partially generated using Llesiant voice recognition system, and there may be some incorrect words, spellings, and punctuation that were not noted in checking the note before saving. documented in this encounter [facility] 03-28-2023 Procedure note Associated Ord er(s): [...] TIME: 1:59 PM documented in this encounter [facility] 03-28-2023 History of Presen t illness Narrative PULM FUNCTION SMARTBLOCK: Provider: Ella Chan APRN.STATE COMPTROLLER Spirometry w/BD: 1 DLCO: 1 Exhaled Nitric Oxide: 1 documented in this encounter [facility] 01-29-2023 Evaluation note Encounter Date Diagnosis [...] no improvement in 2 to 3 days [employer] Other 12-11-2023 Miscellaneous Notes* Telephone Encounter - Radha Song RN - 01/28/2023 1:47 PM EST Pt here for PET Benny labs for office f/u next week Please sign pended cortisol level if needed for f/u. Pt requested level Thank You! Radha Song RN documented in this encounterC[facility]11-20-2023 Miscellaneous Notes* Telephone Encounter - Kristina Pete RN - 01/07/2023 8:12 AM EST Next visit Juan Francisco Hutchinson 02/28/23 Patient phones requesting refills as follows: [...] advise. Kristina Pete RN documented in this encounterC[facility]11-16-2023 Miscellaneous Notes* Telephone Encounter - Anh [...] are back to baseline. documented in this encounterC[facility]11-14-2023 History of Present illness Narrative* Alexsander Ledezma MD - 01/01/2023 7:39 AM EST PATIENT NAME: Celso Potts DATE: 01/01/2023 PRIMARY CARE PHYSICIAN: Jose Vail MD OTHER PHYSICIANS: Dr. Cyn Ramires; Dr. Gurpreet Unger; Juan Francisco Hutchinson CNP ([facility] Pall Med), Dr. Estrada Del Valle ([facility] Rad Onc), Dr. Summer Carver ([facility] Pulmonary), Dr Jaxson Gamez ([facility] Dermatology) CC: This is a 42 year [...] C No.3 (B COMPLEX PLUS VITAMIN C) 97-61-73-5-300 mg cap^Take 1 tablet by mouth once [...] 4. Postradiation changes in the bilateral lung rodirguez. 5. Mosaic attenuation in the bilateral lung [...] PCP. Alexsander Ledezma MD documented in this encounterC[facility]11-02-2023 NoteHNO ID: [id number] Author: Juan Francisco Hutchinson APRN.STATE COMPTROLLER Service: ? Author Type: Nurse Practitioner Type: [...] not follow [place] close to her home. Keeps well hydrated because dehydration has always made these symptoms worse. She is taking gabapentin 600 mg TID. Also taking oxycodone 10 mg 3-4 times per day Denies confusion, oversedation, myoclonus, constipation Fatigued but does not sleep during the day Going out with friends and keeping busy as much as she can Modified ESAS ([place] Symptom Assessment Scale) Information Provided By: Patient [...] activities of daily living, (more content not included)...[facility]10-30-2023 Miscellaneous Notes * Telephone Encounter - Mitzi Brown - 12/17/2022 2:33 PM EDT Called patient and rescheduled with PFT's to January 03 and FU with SARAH documented in this encounterC[facility]09-18-2023 Miscellaneous Notes* Telephone Encounter - Juan Francisco Hutchinson, LORY.STATE COMPTROLLER - 11/05/2022 4:38 PM EDT PDMP website checked and validated. All prescriptions have been APPROPRIATELY filled. No suspiciousactivity was identified. 11/05/2022 by Juan Francisco Hutchinson APRN.CNP Rx sent - earliest fill 11/09/22 Juan Francisco Hutchinson APRN.STATE COMPTROLLER * Telephone Encounter - Kylie Mosher RN [...] advise. Kylie Mosher RN documented in this encounterC[facility]08-31-2023 Miscellaneous Notes* Telephone Encounter - Kylie Mosher RN - 10/18/2022 1:34 PM EDT Prior Authorization Documentation Prior authorization requested via Covermymeds for the following medication: Medication: Lyrica 100 mg capsules Approved and authorizes your coverage from 02/18/2022 - 02/17/2023, Insurance Company Name: [employer] Phone number: [phone] Patient ID number: [id number] Osorio [id number] Pharmacy Name: [facility] Telephone number: [phone] Kylie Mosher RN October 18, 2022 1:38 PM documented in this encounterCleveland Clinic [facility]08-31-2023 NoteHNO ID: [id number] Author: Juan Francisco Hutchinson APRN.CNP Service: ? Author Type: Nurse Practitioner [...] Denies confusion, oversedation, myoclonus, constipation. Modified ESAS ([place] Symptom Assessment Scale) Information Provided By: Patient [...] was identified. 10/18/2022 by Juan Francisco Hutchinson APRN.STATE COMPTROLLER Urine Screen Lab Results Component Value Date UAMPH Negative 02/24/2021 UBARB2 Negative 02/24/2021 UBENZ Negative 02/24/2021 UQBUPRE <20 01/25/2022 UQNORBUP <20 01/25/2022 UCOC2 Negative 02/24/2021 UQCANN <1 (more content not included)...[facility]08-31-2023 NoteHNO ID: [id number] Author: Zoila Pedersen RN Service: ? Author [...] Zoila Pedersen RN October 18, 2022 11:09 [facility]08-31-2023 Instructions* Patient Instructions* Juan Francisco Hutchinson APRN.CNP - 10/18/2022 11:50 AM EDT Juan Francisco Hutchinson CNP Department of Palliative and Supportive Care Palliative Care - Specialty services in symptom management and support For questions or prescription refills, call: [phone] Saturday - Saturday 9AM-5PM ERVIN Corrales, RN - Board Handler Please call 3-5 days in advance for medication refills Evenings, Weekends, Holidays: [phone] (ask for palliative medicine on-call provider) For appointments, cancellations or reschedule, call: [phone] documented in this encounterC[facility]08-31-2023 History of Present illness Narrative* Juan [...] nodes (April 2020) per Dr. 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 She is currently treated with Keytruda per Dr. Abimael Ramires. Course has been c/b pulmonary embolus (on AC), PJP pneumonia, herpes zoster. Palliative care is following for symptom control needs. Subjective Last [facility] care visit 07/19/22 Feeling fairly well. Pulmonary [...] Denies confusion, oversedation, myoclonus, constipation. Modified ESAS ([place] Symptom Assessment Scale) Information Provided By: Patient [...] was identified. 10/18/2022 by Juan Francisco Hutchinson APRN.STATE COMPTROLLER Urine Screen Lab Results Component Value Date [...] Urine pH, Pain Ocasio 6.3 02/24/2021 Specific [place],Ur Pain Ocasio 1.012 02/24/2021 Oxidants,Ur 46 02/24/2021 [...] Next Visit: 4 Weeks in person Juan Francisconydia Hutchinson APRN.CNP October 18, 2022 11:26 AM This note may have been partially generated using the Llesiant voice recognition system. While every effort was made to correct voice recognition errors, kindly be aware that some errors may occasionally occur. documented in this encounterCleveland Clinic [facility]08-31-2023 Instructions* Patient Instructions* Zoila Pedersen RN - 10/18/2022 11:10 AM EDT Use warm compresses to left inner thigh daily for comfort documented in this encounterCleveland Clinic [facility]08-31-2023 History of Present illness Narrative* Zoila [...] - states clindamycin does not work Joined [employer] , heard that [employer] works if [...] 18, 2022 11:09 AM documented in this encounterCleveland Clinic [facility]08-22-2023 Miscellaneous Notes* Telephone Encounter - Kylie [...] advise. Kylie Mosher RN documented in this encounterCleveland Clinic [facility]08-21-2023 Miscellaneous Notes* Telephone Encounter - Flori Ford RN - 10/08/2022 9:57 AM EDT Patient my chart message requesting refills as follows: Last ordered 06/12/22, last [facility] med visit on 07/19/22 Future appt 10/18/22 Requested Prescriptions Pending Prescriptions Disp Refills baclofen 5 mg tablet 90 tablet 2 Sig: Take 1 tablet by mouth three times daily. Please review and advise. Flori Ford RN documented in this encounterCleveland Clinic [facility]07-27-2023 NoteHNO ID: [id number] Author: Summer Carver MD Service: ? Author [...] PFT: SPIROMETRY - BASELINE AND POST DILATOR ([id number]) - ordered on 11/03/19 [facility] [address] [place] [address] Test Date: 2019-11-03 Pat Name: CELSO POTTS Department: Room: Gender: Female Communication Signals Intelligence: Perla Baker : 1980 Requested By: Order Number: [id number] Reading MD: Justin Moreno Interpretive Statements PRE [...] 38 .4 FIVC L 2.35 2.35 0.0 KZL44-40% L/s 2.36 2.36 3.81 5.55 61.8 3.00 78.7 27.2 GOD838% sec 7.37 5.99 -18.7 FETPEF sec 0.07 0.11 68.2 VBe%FV % 4 5 25.4 VBEex L 0.10 0.12 23.6 FIVC/FVC % 96 98 1.6 ----- ----- ----- ----- ----- ----- ----- ----- FRCpl L 1.31 2.36 3.43 4.49 38.3 ERV L 0.44 (more content not included)...[facility]07-27-2023 History of Present illness Narrative* Summer Carver [...] PFT: SPIROMETRY - BASELINE AND POST DILATOR ([id number]) - ordered on 11/03/19 [facility] [address] [place] [place] [address] Test Date: 2019-11-03 Pat Name: CELSO POTTS Department: Room: Gender: Female Communication Signals Intelligence: Perla Baker : 1980 Requested By: Order Number: [id number] Reading MD: Justin Moreno Interpretive Statements PRE [...] 38 .4 FIVC L 2.35 2.35 0.0 GFH75-38% L/s 2.36 2.36 3.81 5.55 61.8 3.00 78.7 27.2 WYP537% sec 7.37 5.99 -18.7 FETPEF sec 0.07 [...] , PFT that day Summer Carver MD, [facility] Res[facility] [place] documented in this encounterCleveland Clinic [facility]07-05-2023 NoteHNO ID: [id number] Author: Cyn Ramires MD Service: ? Author [...] pneumonitis She saw Dr. Alejandro sarmiento at [facility] for 2nd opinion cell([phone]) She agreed with out plan and recommended [...] discomfort no short (more content not included)... [facility]07-05-2023 Instructions* Patient Instructions* Gunjan Joya LPN - 08/22/2022 2:50 PM EDT Follow up with Dr. Ramires in the beginning of November Patient will schedule PET scan documented in this encounterCleveland Clinic [facility]07-05-2023 History of Present illness Narrative* Cyn [...] pneumonitis She saw Dr. Alejandro sarmiento at [facility] for 2nd opinion cell([phone]) She agreed with out plan and recommended [...] DATA CBC, CMP, TSH were reviewed in [facility]. PET scan report and images were reviewed in [facility]. Results werediscussed with patient and radiation [...] FACP CC: Jose Parra documented in this encounterCleveland Clinic [facility] Hospital06-27-2023 Miscellaneous Notes* Telephone Encounter - Juan Francisco Hutchinson APRN.CNP - 08/14/2022 1:29 PM EDT PDMP website checked and validated. All prescriptions have been APPROPRIATELY filled. No suspiciousactivity was identified. 08/14/2022 by Juan Francisco Hutchinson APRN.CNP Rx sent Juan Francisco Hutchinson APRN.[facility] * Telephone Encounter - Kristina Pete RN - 08/13/2022 5:21 PM EDT Patient phones requesting refills as follows: Requested Prescriptions Pending Prescriptions Disp Refills oxyCODONE IR (ROXICODONE) 10 mg tab 120 tablet 0 Sig: Take 1 tablet by mouth every 4 hours as needed (moderate-severe cancer pain) for up to 30 days. Please review and advise. Kristina Pete RN documented in this encounterCleveland Clinic [facility] Hospital06-27-2023 NoteHNO ID: [id number] Author: RT Anaya(Junior) Service: ? Author Type: Technologist Type: Progress [...] 1109 PATIENT DISCHARGED TO: Ambulatory patient, left AR department area. A Diagnostic radioactive procedure has taken place, with no further precautions necessary other than routine body substance precautions. More information regarding radiation safety can be found using this link: [email or web address] SIGNATURE: RT Anaya(Junior) PATIENT NAME: Celso Potts DATE: August 14, 2022 TIME: 11:23 AM PAGER/CONTACT #:[facility]06-27-2023 NoteHNO ID: [id number] Author: Radha Song RN Service: ? Author [...] Potts DATE: August 14, 2022 TIME: 10:58 [facility]06-16-2023 Miscellaneous Notes* Telephone Encounter - Ella Chan [...] her at another time. documented in this encounterCleveland Clinic [facility]06-14-2023 NoteHNO ID: [id number] Author: Ella Chan APRN.CNP Service: ? Author Type: Nurse Practitioner Type: Progress Notes Filed: 08/01/2022 8:01 PM Note Text: [facility] Date: August 01, 2022 [...] or chills. Electronically signed by Ella Chan APRN.[facility] Respiratory [place], [facility] July 31, 2022 HPI: Celso Potts [...] CT CHEST WO IVCON (more content not included)...[facility] 08-01-2022 Instructions* Patient Instructions* Ella Chan APRN.CNP [...] sample in cup provided. documented in this encounterCleveland Clinic Medina Hospital06-14-2023 History of Present illness Narrative* Ella Chan APRN.CNP - 08/01/2022 10:00 AM EDT Images from the original note were not included. [facility] Date: August 01, 2022 8:48 [...] or chills. Electronically signed by Ella Chan APRN.[facility] Respiratory [place], [facility] July 31, 2022 HPI: Celso Potts [...] listed in the HPI Modified Medical Research [place] Dyspnea Scale (MMRC) I only get breathless [...] C No.3 (B COMPLEX PLUS VITAMIN C) 68-48-92-5-300 mg cap Take 1 tablet by mouth [...] Sclerosis Mother Coronary Artery Disease Maternal Grandfather MS age 36 Coronary Artery Disease Paternal Grandfather [...] 10/14/2013 12/21/2013 03/11/2014 Haemophilus influenzae b-meningococcal bivalent (Qrt-XdqFV-PP) vaccine (MENHIBRIX) 10/14/2013 diphtheria tetanus (DT) vaccine, [...] DIAGNOSTICS & IMAGING: (Reviewed & updated by me 07/31/2022) PFTs 11/03/2019 IMPRESSION: Spirometry shows no [...] fatty infiltration. No evidence of adrenal mass.. Application Penetration Tester (topogram) images: No additional findings. YOGESH DAVIS [...] unlikely to be related to lymphoma RESULT: Application Penetration Tester (topogram) images: No additional findings. - Mediastinum [...] MD Most recent labs reviewed. Ella Chan APRN.PEDRO Hull spent a total of 30 minutes on the date of the service which included preparing to see the patient, zzju-co-inpj patient care, completing clinical documentation, obtaining and/or reviewing separately obtained history, performing a medically appropriate examination, counseling and educating the pat ient/family/caregiver, and ordering medications, tests, or procedures. documented in this encounterCleveland Clinic Medina Hospital06-13-2023 NoteHNO ID: [id number] Author: Nova Bridges APRN.PEDRO Service: ? Author Type: Nurse Practitioner [...] C No.3 (B COMPLEX PLUS VITAMIN C) 00-84-79-5-300 mg cap Take 1 tablet by mouth [...] -weight loss and smoking (more content not included)...[facility]06-01-2023 NoteHNO ID: [id number] Author: Juan Francisco Hutchinson APRN.STATE COMPTROLLER Service: ? Author Type: Nurse Practitioner Type: [...] following for symptom control needs. Subjective Last [facility] care visit 04/23/[address] chest on 07/17 shows she developed more conspicuous mosaic attenuation in bilateral lung rodriguez, reticular nodular opacities in RML (stable), subcentimeter nodular opacities in the left lung (stable), postradiation change to bilateral lung rodriguez. Finished steroids and antibiotics. Iola very good after this but then as [...] relaxants. Denies confusion, oversedation, myoclonus. Modified ESAS ([place] Symptom Assessment Scale) Information Provided By: Patient [...] Yes Prescribed Morphine Eq (more content not included)...[facility] 07-19-2022 History of Present illness Narrative* Juan Francisco Hutchinson APRN.STATE COMPTROLLER - 07/19/2022 8:15 AM EDT PALLIATIVE MEDICINE [...] bilateral lung rodriguez. Finished steroids and antibiotics. Iola very good after this but then as [...] relaxants. Denies confusion, oversedation, myoclonus. Modified ESAS ([place] Symptom Assessment Scale) Information Provided By: Patient [...] was identified. 07/19/2022 by Juan Francisco Hutchinson APRN.STATE COMPTROLLER Urine Screen Lab Results Component Value Date [facility] Negative 02/24/2021 UBARB2 Negative 02/24/2021 UBENZ Negative [...] Urine pH, Pain Ocasio 6.3 02/24/2021 Specific [place],Ur Pain Ocasio 1.012 02/24/2021 Oxidants,Ur 46 02/24/2021 [...] Months in person Juan Francisco Hutchinson APRN.CNP July 19, 2022 8:15 AM This note may have been partially generated using the Llesiant voice recognition system. While every effort was made to correct voice recognition errors, kindly be aware that some errors may occasionally occur. documented in this encounterCleveland Clinic Medina Hospital05-31-2023 NoteHNO ID: [id number] Author: Cyn Ramires MD Service: ? Author [...] pneumonitis She saw Dr. Alejandro sarmiento at [facility] for 2nd opinion cell([phone]) She agreed with out plan and recommended [...] Still have stable chest (more content not included)...[facility] 07-18-2022 Miscellaneous Notes* Telephone Encounter - Flori Ford RN - 07/18/2022 12:09 PM EDT My chart appointment question response sent. Flori Ford RNCC Councilman documented in this encounterCleveland Clinic Medina Hospital05-31-2023 History of Present illness Narrative* Cyn [...] pneumonitis She saw Dr. Alejandro sarmiento at [facility] for 2nd opinion cell([phone]) She agreed with out plan and recommended [...] DATA CBC, CMP, TSH were reviewed in [facility]. PET scan report and images were reviewed in [facility]. Results werediscussed with patient and radiation [...] FACP CC: Jose Parra documented in this encounterCleveland Clinic Medina Hospital05-31-2023 Instructions* Patient Instructions* Gunjan Joya LPN - 07/18/2022 11:26 AM EDT Follow up with Dr. Ramires 08/14 at 9:50a PET scan a few days prior documented in this encounterCleveland Clinic Medina Hospital05-30-2023 NoteHNO ID: [id number] Author: DIMA Eugene) Service: ? Author Type: Technologist Type: Progress [...] PERIPHERAL IV DATA: Not applicable SIGNED BY: DIMA Eugene) July 17, 2022 1:24 [facility]05-30-2023 History of Present illness Narrative* DIMA Eugene) - 07/17/2022 1:24 PM EDT Radiology Service [...] IV DATA: Not applicable SIGNED BY: RT Jabier(Junior) July 17, 2022 1:24 PM documented in this encounterCleveland Clinic Medina Hospital05-30-2023 Miscellaneous Notes* Telephone Encounter - Juan Francisco Hutchinson APRN.PEDRO - 07/17/2022 11:55 AM EDT PDMP website checked and validated. All prescriptions have been APPROPRIATELY filled. No suspiciousactivity was identified. 07/17/2022 by Juan Francisco Hutchinson APRN.STATE COMPTROLLER Rx sent Juan Francisco Hutchinson APRN.STATE COMPTROLLER * Telephone Encounter - Kylie Mosher RN [...] advise. Kylie Mosher RN documented in this encounterCleveland Clinic Medina Hospital04-28-2023 Miscellaneous Notes* Telephone Encounter - Ella Chan APRN.STATE COMPTROLLER - 06/15/2022 4:02 PM EDT Prescription for duonebs sent to pharmacy. Called patient and updated her. Also let her know she should discontinue her albuterol nebulizer once she starts her duonebs. * Telephone Encounter - Mitzi Hutchinson MA - 06/13/2022 1:30 PM EDT Called pharmacy on [facility] to verify they have medication in stock and I spoke with pharmacy intake technician Savannah who states they have 1 box in stock. Please advise. * Telephone Encounter - HILARY Dougherty - 06/13/2022 1:16 PM EDT Celso Potts called today. : 1980 Allergies: Chlorhexidine and Sulfa (Sulfonamide Antibiotics) (home) [phone] (cell) Reason for call: Patient states that at the last office visit 06/04/22 the provider was going to call in DUONEB. She states it was not called in . Please advise. e- [id number] [place] [address] - [address] [phone] [address] [address] [facility] [id number] Patient last appointment: 06/04/2022 The patients preferred pharmacy has been captured for this encounter? yes HILARY Dougherty documented in this encounterCleveland Clinic Medina Hospital04-25-2023 NoteHNO ID: [id number] Author: Cyn Ramires MD Service: ? Author Type: Physician Type: Progress Notes Filed: 06/12/2022 11:37 AM Note Text: [facility] This visit is a Virtual MyChart video visit encounter which required patient-provider interaction for the medical decision making as documented below. Persons Present: patient I have communicated my name and active licensure. The patient?s identity and physical location were verified at the time of this visit. Celso Potts or their legal outside sales account representative has been informed of the risks and benefits of -- and alternatives to -- treatment through a remote evaluation and consents to proceed with the evaluation remotely. Total Time Spent: 5-10 minutes on this telephone encounter HISTORY REVIEWED (electronic chart updated): - medical history - medications - allergies Interval history: Patient tried to log into AppLayer video visit virtual visit. Was not able [...] may consider resuming [facility] Miscellaneous Notes* Telephone Encounter - Juan Francisco Hutchinson APRN.CNP - 06/12/2022 12:06 PM EDT PDMP website checked and validated. All prescriptions have been APPROPRIATELY filled. No suspiciousactivity was identified. 06/12/2022 by Juan Francisco Hutchinson APRN.CNP Rx sent Juan Francisco Hutchinson APRN.STATE COMPTROLLER * Telephone Encounter - Kylie Mosher RN [...] advise. Kylie Mosher RN documented in this encounterCleveland Clinic Medina Hospital04-25-2023 Instructions* Patient Instructions* Gunjan Joya LPN - 06/12/2022 11:09 AM EDT Pt will schedule CT Follow up with Dr. Ramires 07/17 or 07/18 Schedule treatment 07/24 documented in this encounterCleveland Clinic Medina Hospital04-25-2023 Nurse Note* Vannessa Lopez Ma - 06/12/2022 10:50 AM EDT Called patient and got the voice mail. Left message to remind patient about the vv scheduled today at 10:50 am with documented in this encounterCleveland Clinic Medina Hospital04-25-2023 History of Present illness Narrative* Cyn Ramires MD - 06/12/2022 10:45 AM EDT [facility] VIS[facility] which required patient- provider interaction for the medical decision making as documented below. Persons Present: patient I have communicated my name and active licensure. The patient s identity and physical location wereverified at the time of this visit. Celso Potts or their legal outside sales account representative has been informed ofthe risks and benefits of -- and alternatives to -- treatment through a remote evaluation and consents to proceed with the evaluation remotely. Total Time Spent: 5-10 minutes on this telephone encounter HISTORY REVIEWED (electronic chart updated): - medical history - medications - allergies Interval history: Patient tried to log into AppLayer video visit virtual visit. Was not able [...] resuming Cyn Ramires MD documented in this encounterCleveland Clinic Medina Hospital04-17-2023 NoteHNO ID: [id number] Author: Ella Chan APRN.STATE COMPTROLLER Service: ? Author Type: Nurse Practitioner Type: [...] or chills. Electronically signed by Ella Chan APRN.[facility] Respiratory [place], [facility] June 04, 2022 HPI: Celso Potts [...] palpitations, CP, lower ex (more content not included)...[facility]04-13-2023 NoteHNO ID: [id number] Author: Katarzyna Dover RT(R) Service: Radiology Author Type: Technologist Type: [...] IV DATA: Not applicable SIGNED BY: RT Belkis(R) May 31, 2022 7:59 [facility]04-13-2023 History of Present illness Narrative* Katarzyna Dover [...] IV DATA: Not applicable SIGNED BY: RT Belkis(R) May 31, 2022 7:59 AM documented in this encounterCleveland Clinic Medina Hospital04-04-2023 NoteHNO ID: [id number] Author: Cyn Ramires MD Service: ? Author [...] pneumonitis She saw Dr. Alejandro sarmiento at [facility] for 2nd opinion cell([phone]) She agreed with out plan and recommended [...] the spleen, liver and lymph node at [facility] PET showed progression early 2022March 2019 [...] rare ETOH. single a (more content not included)...[facility]04-03-2023 NoteHNO ID: [id number] Author: Estrada Del Valle MD Service: ? Author Type: Physician Type: Progress Notes Filed: 05/21/2022 9:29 AM Note Text: No show. Estrada Del Valle MD, MSc, MRCP, FRSOCO, ACER Radiation Oncology Staff Physician May 21, 2022 9:28 [facility]04-03-2023 History of Present illness Narrative* Estrada Del Valle MD - 05/21/2022 9:28 AM EDT No show. Estrada Del Valle MD MSc, MRCP, LANE, ACER Radiation Oncology Staff Physician May 21, 2022 9:28 AM documented in this encounterCleveland Clinic Medina Hospital03-08-2023 Miscellaneous Notes* Telephone Encounter - Maye [...] questions or concerns or Radiation Oncology Fellow Can Feeder after 5pm and on weekends for urgent issues. Patient verbalized understanding of when to seek medical attention and after hours number protocol. Follow up appointment: Reminded patient of virtual visit on 05/18/2022 with Sarah Carranza, RN documented in this encounterCleveland Clinic Medina Hospital03-06-2023 NoteHNO ID: [id number] Author: Juan Francisco Hutchinson APRN.STATE COMPTROLLER Service: ? Author Type: Nurse Practitioner Type: [...] as weather changes to spring. Modified ESAS ([place] Symptom Assessment Scale) Information Provided By: Patient [...] was identified. 04/23/2022 by Juan Francisco Hutchinson APRN.STATE COMPTROLLER Urine Screen Lab Results Component Value Date [facility] Negative 02/24/2021 UBARB2 Negative 02/24/2021 UBENZ Negative 02/24/2021 UQBUPRE <20 01/25/2022 UQNORBUP <20 01/25/2022 UCOC2 Negative 02/24/2021 UQCANN <16 01/25/2022 UOPI Negative 02/24/2021 UOXYC Negative 02/24/2021 UPCP Negative 02/24/2021 UTHC Negative 02/24/2021 UETOH <11 02/24/2021 Urine Panel: Lab Results (more content not included)...[facility]03-06-2023 Instructions * Patient Instructions* Juan Francisco Hutchinson APRN.CNP - 04/23/2022 10:30 AM EST Juan Francisco Hutchinson CNP Department of Palliative and Supportive Care Palliative Care - Specialty services in symptom management and support For questions or prescription refills, call: [phone] Saturday - Saturday 9AM-5PM ERVIN Corrales, RN - Board Handler Please call 3-5 days in advance for medication refills Evenings, Weekends, Holidays: [phone] (ask for palliative medicine on-call provider) For appointments, cancellations or reschedule, call: [phone] documented in this encounterCleveland Clinic Medina Hospital03-06-2023 History of Present illness Narrative* Juan Francisco Hutchinson APRN.CNP - 04/23/2022 9:56 AM EST PALLIATIVE MEDICINE [...] as weather changes to spring. Modified ESAS ([place] Symptom Assessment Scale) Information Provided By: Patient [...] was identified. 04/23/2022 by Juan Francisco Hutchinson APRN.STATE COMPTROLLER Urine Screen Lab Results Component Value Date [...] Urine pH, Pain Ocasio 6.3 02/24/2021 Specific [place],Ur Pain Ocasio 1.012 02/24/2021 Oxidants,Ur 46 02/24/2021 [...] Months in person Juan Francisco Hutchinson APRN.PEDRO April 23, 2022 9:56 AM This note may have been partially generated using the Llesiant voice recognition system. While every effort was made to correct voice recognition errors, kindly be aware that some errors may occasionally occur. documented in this encounterCleveland Clinic Medina Hospital03-03-2023 Miscellaneous Notes* Telephone Encounter - Maye [...] M.D. Maye MUELLER, RN documented in this encounterCleveland Clinic Medina Hospital02-27-2023 Miscellaneous Notes* Telephone Encounter - Juan Francisco Hutchinson APRN.STATE COMPTROLLER - 04/16/2022 1:38 PM EST PDMP website checked and validated. All prescriptions have been APPROPRIATELY filled. No suspiciousactivity was identified. 04/16/2022 by Juan Francisco Hutchinson APRN.STATE COMPTROLLER Rx sent Juan Francisco Hutchinson APRN.STATE COMPTROLLER * Telephone Encounter - Kylie Mosher RN [...] advise. Kylie Mosher RN documented in this encounterCleveland Clinic Medina Hospital02-22-2023 NoteHNO ID: [id number] Author: Estrada Del Valle MD Service: Radiation Oncology Author Type: Physician Type: Progress Notes Filed: 05/07/2022 3:36 PM Note Text: CELSO POTTS [id number] 04/11/2022 [facility] Department of Radiation Oncology [facility] RADIATION ONCOLOGY: COMPLETION NOTE DATE OF SIMULATION: [...] follow up in 6 weeks. Resident Physician Gus Patricio M.D. Staff Physician Estrada Del Valle M.D :47 PM Electronically Signed cc: Jose Vail MD [address] [place] [address] [place] [address] [place] [address] [address] [facility] [id number] Hospitals [facility]02-22-2023 History of Present illness Narrative* Estrada Del Valle MD - 04/11/2022 12:00 AM EST CELSO POTTS [id number] 04/11/2022 [facility] Department of Radiation Oncology [facility] RADIATION ONCOLOGY: COMPLETION NOTE DATE OF SIMULATION: [...] follow up in 6 weeks. Resident Physician Gus Patricio M.D. Staff Physician Estrada Del Valle M.D 31:47 PM Electronically Signed cc: Jose Vail MD [address] [place] [address] [place] [address] [address] [facility] [address] documented in this encounterCleveland Clinic Medina Hospital02-21-2023 NoteHNO ID: [id number] Author: Cyn Ramires MD Service: ? Author [...] pneumonitis She saw Dr. Alejandro sarmiento at [facility] for 2nd opinion cell([phone]) She agreed with out plan and recommended [...] appetite Still have s (more content not included)...[facility]02-17-2023 NoteHNO ID: [id number] Author: Estrada Del Valle MD Service: ? [...] weeks. Acute and delayed side effects reviewed. Gus Patricio MD Radiation Oncology Resident (PGY-5) [id number] I have personally participated in the osorio components of the case and agree with the above findings: Treatment chart checked: YES Patient treatment site reviewed and verified: YES Setup images reviewed and current: YES Signed by: Estrada Del Valle [facility]02-06-2023 History of Present illness Narrative* Estrada Del [...] I spent over 50% of a total qnza-oi-pfgw time of 60-80 minutes, counseling/coordinating patient care. Estrada Del Valle MD, MSc, MRCP, FRCR, DABR Radiation Oncology Staff Physician March 26, 2022 11:25 AM documented in this encounterCleveland Clinic Medina Hospital02-03-2023 Nurse Note* Zoila Lane LPN - 03/23/2022 9:18 AM EST Radiation Oncology Nursing Note PATIENT NAME: Celso Potts PATIENT [facility] FACILITY/LOCATION: [facility] [place] PROCEDURE: Contrast Injection for CT Simulation Safety [...] NAME: Celso Potts PATIENT March 23, 2022 [facility] FACILITY/LOCATION: [facility] [place] READINESS TO LEARN Cognitive Ability: Alert and [...] need for social work, van service, and administrative services director. Was KP approved? No KP completed and on 03/07/22 scored 0 distress. Signed by: Zoila Lane LPN documented in this encounterCleveland Clinic Medina Hospital02-03-2023 History of Present illness Narrative* [facility] Provider - 03/23/2022 12:00 AM EST CELSO POTTS [id number] 03/23/2022 [facility] Department of Radiation Oncology [facility] RADIATION ONCOLOGY - Therapist Injection Note Procedure: [...] Disposition: HOME Therapist: magali documented in this encounterCleveland Clinic Medina Hospital02-03-2023 History of Present illness Narrative* Estrada Del Valle MD - 03/23/2022 12:00 AM EST CELSO POTTS [id number] 03/23/2022 [facility] Department of Radiation Oncology Treatment Planning Note [...] Valle M.D. 37:10 AM documented in this encounterCleveland Clinic Medina Hospital02-02-2023 Miscellaneous Notes* Telephone Encounter - Dary [...] radiation. Dary Gonzalez RN documented in this encounterCleveland Clinic Medina Hospital01-29-2023 History of Present illness Narrative* Estrada [...] C No.3 (B COMPLEX PLUS VITAMIN C) 64-08-92-5-300 mg cap^Take 1 tablet by mouth once [...] I spent over 50% of a total tedh-mx-kpry time of 60-80 minutes, counseling/coordinating patient care. Signed by: Estrada Del Valle MD, MSc, MRCP, FRCR, DABR Radiation Oncology Staff Physician March 18, 2022 11:55 PM cc: Jose Vail [address] [place] [address] [place] [address] No referring provider defined for this encounter. documented in this encounterCleveland Clinic Medina Hospital01-26-2023 Miscellaneous Notes* Telephone Encounter - Flori [...] * Telephone Encounter - Juan Francisco Hutchinson APRN.CNP - 03/15/2022 12:58 PM EST PDMP website checked and validated. All prescriptions have been APPROPRIATELY filled. No suspiciousactivity was identified. 03/15/2022 by Juan Francisco Hutchinson APRN.CNP Rx sent [...] Flori Ford RN documented in this encounterCleveland Clinic Medina Hospital01-18-2023 Instructions* Patient Instructions* Mackenzie Woods LPN - 03/07/2022 11:47 AM EST Unarrive tx today Schedule Office visit with Dr Ramires 03/28/22 @11:30am per Dr Ramires documented in this encounterCleveland Clinic Medina Hospital01-18-2023 History of Present illness Narrative* Cyn [...] pneumonitis She saw Dr. Alejandro sarmiento at [facility] for 2nd opinion cell([phone]) She agreed with out plan and recommended [...] the spleen, liver and lymph node at [facility] Interval history: patient is here for follow-up [...] neuropathy No diarrhea or constipation. PHYSICAL EXAM: [facility] 11/18/2012 General: NAD, ECOG PS:1 No paleness or jaundice lymph system: No lymphadenopathy in the neck. SC or axillary area BL. Heart: S1, S2, RRR Lung: CTA (BL), no wheezing or crackles Abd: No tenderness, or distension. Soft Extremities: No pitting edema, or cyanosis DATA CBC, CMP, TSH were reviewed in [facility]. PET scan report and images were reviewed in [facility]. Results werediscussed with patient and radiation [...] FACP CC: Jose Parra documented in this encounterCleveland Clinic Medina Hospital12-08-2022 Instructions* Patient Instructions* Juan Francisco Hutchinson APRN.PEDRO - 01/25/2022 2:57 PM EST JORGE GarsiaC Department of Palliative and Supportive Care Palliative Care - Specialty services in symptom management and support For questions or prescription refills, call: [phone] Saturday - Saturday 9AM-5PM ERVIN Corrales, RN - Board Handler Please call 3-5 days in advance for medication refills Evenings, Weekends, Holidays: [phone] (ask for palliative medicine on-call provider) For appointments, cancellations or reschedule, call: [phone] documented in this encounterCleveland Clinic Medina Hospital12-08-2022 NoteHNO ID: [id number] Author: Juan Francisco Hutchinson APRN.PEDRO Service: ? [...] treadmill. She will be meeting with a animal attendants and trainers to better understand the equipment upcoming. Has had some nausea since starting doxy for acne. Responsive to Compazine. Modified ESAS ([place] Symptom Assessment Scale) Information Provided By: Patient [...] was identified. 01/25/2022 by Juan Francisco Hutchinson APRN.STATE COMPTROLLER Urine Screen Lab Results Component Value Date [...] <5 02/24/2021 Methamphetamine Q (more content not included)...[facility] [id number] History of Present illness Narrative* Juan Francisco Hutchinson, EDUCATIONAL RESOURCE COORDINATOR.STATE COMPTROLLER - 01/25/2022 10:55 AM EST PALLIATIVE MEDICINE [...] treadmill. She will be meeting with a animal attendants and trainers to better understand the equipment upcoming. Has had some nausea since starting doxy for acne. Responsive to Compazine. Modified ESAS ([place] Symptom Assessment Scale) Information Provided By: Patient [...] was identified. 01/25/2022 by Juan Francisco Hutchinson APRN.STATE COMPTROLLER Urine Screen Lab Results Component Value Date [...] Urine pH, Pain Ocasio 6.3 02/24/2021 Specific [place],Ur Pain Ocasio 1.012 02/24/2021 Oxidants,Ur 46 02/24/2021 [...] Months in person Juan Francisco Hutchinson APRN.PEDRO January 25, 2022 10:55 AM documented in this encounterCleveland Clinic [facility]12-05-2022 Miscellaneous Notes* Telephone Encounter - Kylie [...] advise. Kylie Mosher RN documented in this encounterCleveland Clinic Medina Hospital11-30-2022 Miscellaneous Notes* Telephone Encounter - Gunjan Joya LPN - 01/17/2022 9:10 AM EST Spoke with patient, rescheduled appt for tomorrow documented in this encounterCleveland Clinic Medina Hospital11-29-2022 Miscellaneous Notes* Telephone Encounter - Juan Francisco Hutchinson APRN.STATE COMPTROLLER - 01/16/2022 2:34 PM EST PDMP website checked and validated. All prescriptions have been APPROPRIATELY filled. No suspiciousactivity was identified. 01/16/2022 by Juan Francisco Hutchinson APRN.STATE COMPTROLLER Rx sent Juan Francisco Hutchinson APRN.STATE COMPTROLLER * Telephone Encounter - Kristina Pete RN - 01/16/2022 12:48 PM EST Patient phones requesting refills as follows: Requested Prescriptions Pending Prescriptions Disp Refills oxyCODONE IR (ROXICODONE) 10 mg tab 120 tablet 0 Sig: Take 1 tablet by mouth every 4 hours as needed (moderate-severe cancer pain) for up to 30 days. Please review and advise. Kristina Pete RN documented in this encounterCleveland Clinic Med[facility] Hospital11-15-2022 Miscellaneous Notes* Telephone Encounter - Caro Srinivasan RN - 01/02/2022 3:41 PM EST [place] Care Coordination FOLLOW-UP NOTE Patient identified by name and date of . YES Spoke to voicemail-full so unable to leave message x2 Summary: (Reason for follow-up) Chest tightness Pulmonary f/u needed Echocardiogram needed Concerns: (New Barriers to care) Caro Srinivasan RN January 02, 2022 documented in this encounterCleveland Clinic [facility]11-09-2022 History of Present illness Narrative* Sylvia Mancilla, EDUCATIONAL RESOURCE COORDINATOR.STATE COMPTROLLER - 12/27/2021 9:30 AM EST Oncology Progress [...] pneumonitis She saw Dr. Alejandro sarmiento at [facility] for 2nd opinion cell([phone]) She agreed with out plan and recommended [...] the spleen, liver and lymph node at [facility] Interval history: Ms. Potts presents for follow [...] and TSH, sed rate were reviewed in [facility]. ASSESSMENT AND PLAN: 1. Relapsed Hodgkin [...] visit. Sylvia Mancilla APRN.CNP Hematology/Oncology Janae Ortiz/ [facility] [phone] CC: Jose Parra documented in this encounterCleveland Clinic Medina Hospital10-31-2022 Miscellaneous Notes* Telephone Encounter - Cheryl Guerrero APRN.CNP - 12/18/2021 8:48 AM EDT Refill sent PDMP website checked and validated. All prescriptions have been APPROPRIATELY filled. No suspiciousactivity was identified. 12/18/2021 by Cheryl Guerrero APRN.CNP * Telephone Encounter - Kylie Mosher [...] advise. Kylie Mosher RN documented in this encounterCleveland Clinic Medina Hospital10-20-2022 Instructions* Patient Instructions* Nova Bridges APRN.CNP - 12/07/2021 9:25 AM EDT Acne - [...] under eye as needed documented in this encounterCleveland Clinic Medina Hospital10-20-2022 History of Present illness Narrative* Nova Bridges APRN.PERDO - 12/07/2021 9:15 AM EDT SKIN EXAM [...] C No.3 (B COMPLEX PLUS VITAMIN C) 51-28-11-5-300 mg cap Take 1 tablet by mouth [...] Past Histories independently gathered by the clinical technical support technician and the remaining scribed note accurately describes my personal service to the patient. Nova Bridges APRN.PEDRO December 07, 2021 9:39 AM I spent a total of 25 minutes on the date of the service which included [id number] patient care, completing clinical documentation, performing a medically appropriate examination, counseling and educating the patient/family/caregiver, and ordering medications, tests, or procedures. documented in this encounterCleveland Clinic Medina Hospital09-28-2022 History of Present illness Narrative* Cyn [...] pneumonitis She saw Dr. Alejandro sarmiento at [facility] for 2nd opinion cell([phone]) She agreed with out plan and recommended [...] the spleen, liver and lymph node at [facility] Interval history: Patient is here for follow-up [...] and TSH, sed rate were reviewed in [facility]. ASSESSMENT AND PLAN: 1. Relapsed Hodgkin [...] FACP CC: Jose Parra documented in this encounterCleveland Clinic Medina Hospital09-26-2022 Miscellaneous Notes* Telephone Encounter - Jeny Nava RN - 11/13/2021 8:35 AM EDT I have pended a CBC for Celso that she requested with her other labs. Please sign if agreeable. Thank you, MAE Valentin [facility] documented in this encounterCleveland Clinic Medina Hospital09-08-2022 NoteHNO ID: [id number] Author: Juan Francisco Hutchinson APRN.PEDRO Service: ? [...] care with [facility] visit 08/02. Referred to [facility] due to proximity of home. Did not [...] upcoming PET scan will show. Modified ESAS ([place] Symptom Assessment Scale) Information Provided By: Patient [...] Lab Results Component Value (more content not included)...[facility] [id number] History of Present illness Narrative* Juan Francisco [...] care with [facility] visit 08/02. Referred to [facility] due to proximity of home. Did [...] upcoming PET scan will show. Modified ESAS ([place] Symptom Assessment Scale) Information Provided By: Patient [...] was identified. 10/26/2021 by Juan Francisco Hutchinson APRN.STATE COMPTROLLER Urine Screen Lab Results Component Value Date [...] Urine pH, Pain Ocasio 6.3 02/24/2021 Specific [place],Ur Pain Ocasio 1.012 02/24/2021 Oxidants,Ur 46 02/24/2021 [...] 26, 2021 11:07 AM documented in this encounterCleveland Clinic Med[facility] Hospital09-07-2022 History of Present illness Narrative* Sylvia Mancilla APRN.CNP - 10/25/2021 10:00 AM EDT Oncology Progress [...] pneumonitis She saw Dr. Alejandro sarmiento at [facility] for 2nd opinion cell([phone]) She agreed with out plan and recommended [...] the spleen, liver and lymph node at [facility] Interval history: Ms. Potts is here for follow up and C#31 pembro. Patient went to [facility] ED 09/20/21 with fever, chills,fatigue. Tested positive [...] and TSH, sed rate were reviewed in [facility]. ASSESSMENT AND PLAN: 1. Relapsed Hodgkin [...] the visit. Sylvia Mancilla APRN.CNP Hematology/On[facility] [phone] CC: Jose Parra documented in this encounterCleveland Clinic Med[facility] Hospital09-07-2022 Instructions* Patient Instructions* Sylvia Mancilla APRN.CNP - 10/25/2021 10:00 AM EDT Call the office with questions or concerns. Go to ER with any signs of infection like fever of 100.4 or higher. documented in this encounterCleveland Clinic Medina Hospital08-29-2022 Miscellaneous Notes* Telephone Encounter - Juan Francisco Hutchinson APRN.CNP - 10/16/2021 4:16 PM EDT PDMP website checked and validated. All prescriptions have been APPROPRIATELY filled. No suspiciousactivity was identified. 10/16/2021 by Juan Francisco Hutchinson APRN.CNP Rx sent Juan Francisco Hutchinson APRN.CNP * Telephone Encounter - Kristina Pete RN - 10/16/2021 3:59 PM EDT Patient phones requesting refills as follows: Requested Prescriptions Pending Prescriptions Disp Refills oxyCODONE IR (ROXICODONE) 10 mg tab 120 tablet 0 Sig: Take 1 tablet by mouth every 4 hours as needed (moderate-severe cancer pain) for up to 30 days. Please review and advise. Kristina Pete RN documented in this encounterCleveland Clinic Med[facility] Hospital08-15-2022 Miscellaneous Notes* Telephone Encounter - Joanne [...] DAILY Elaine Enriquez LPN documented in this encounterCleveland Clinic Medina Hospital08-05-2022 Miscellaneous Notes* Telephone Encounter - Caro [...] Patient reminded of her follow-up appointment with [facility] provider, 10/04/21 Keytruda infusion and then 10/25 OV E Gross and infusion: Yes Next Board Handler outreach with patient scheduled? No, appointment made PATIENT EDUCATION/REINFORCEMENT Patient has information of when to seek Medical Attention? YES Patient has information of after hours and weekend phone number? YES Caro Srinivasan RN documented in this encounterCleveland Clinic Medina Hospital08-04-2022 NoteHNO ID: [id number] Author: RT Chapis(R) Service: Radiology Author Type: Communication Signals Intelligence Type: Progress Notes Filed: 09/20/2021 10:41 PM [...] BY: RT Chapis(R) September 20, 2021 10:40 [facility] [id number] NoteCOVID 19 RESULT: SARS-CoV-2 (Agent of COVID-19) Detected by RT-PCR or equivalent method. This test has been authorized by FDA under an Emergency Use Authorization (EUA). INFLUENZA A PCR: Negative for Influenza A by RT-PCR INFLUENZA B PCR: Negative for Influenza B by RT-PCR RSV PCR: Negative for Respiratory Syncytial Virus (RSV) by PCRon HospitalComment on above:Performed By: #### 02209-1 #### [facility] CLIA [id number] [place] [address] [place] [id number] History of Present illness Narrative* Nova Bridges APRN.STATE COMPTROLLER - 09/05/2021 5:43 PM EDT SKIN EXAM [...] around outside Washes with [employer] brand brett History of hidradenitis: clindamycin lotion topically to [...] C No.3 (B COMPLEX PLUS VITAMIN C) 49-13-55-5-300 mg cap Take 1 tablet by mouth [...] or without short course of oral antibiotics half-way management -continue topical clindamycin 1% lotion -antibacterial [...] Past Histories independently gathered by the clinical technical support technician and the remaining scribed note accurately describes my personal service to the patient. Nova Bridges APRN.CNP September 05, 2021 5:59 PM documented in this encounterCleveland Clinic Medina Hospital07-18-2022 Miscellaneous Notes* Telephone Encounter - Flori Ford RN - 09/04/2021 11:32 AM EDT [facility] nurse call to patient and inquired if she was with [facility] Palliative care and she reports her first [...] Flori Ford RN documented in this encounterCleveland Clinic Medina Hospital06-28-2022 Miscellaneous Notes* Telephone Encounter - Juan Francisco Rai APRN.CNP - 08/15/2021 12:36 PM EDT PDMP website checked and validated. All prescriptions have been APPROPRIATELY filled. No suspiciousactivity was identified. Oxycodone e-scribed. Juan Francisco Rai APRN.CNP * Telephone Encounter - Kristina Pete RN - 08/15/2021 7:50 AM EDT Patient had requested referral to [facility] 08/03. TC spoke to Celso Potts patient is not able to start care with [facility] until middle of August. Will need refills until she establishes. Patient phones requesting refills as follows: Pending Prescriptions Disp Refills OXYCODONE 10 MG TABLET 120 tablet 0 Sig: Take 1 tablet by mouth every 4 hours as needed (moderate-severe cancer pain) for up to 30 days. SHELBIE Class: C-II KAREN: No Please review and advise. Kristina Pete RN documented in this encounterCleveland Clinic Medina Hospital06-16-2022 Miscellaneous Notes* Telephone Encounter - Kristina Pete RN - 08/03/2021 8:21 AM EDT Patient has requested palliative services closer to her home referral faxed to [facility] palliative care. [phone] Kristina Pete RN documented in this encounterCleveland Clinic Med[facility] Hospital06-10-2022 History of Present illness Narrative* Nova Webstertz, EDUCATIONAL RESOURCE COORDINATOR.STATE COMPTROLLER - 07/28/2021 7:59 AM EDT SKIN EXAM [...] C No.3 (B COMPLEX PLUS VITAMIN C) 16-11-59-5-300 mg cap Take 1 tablet by mouth [...] 300 mg BID until completed (from ED) manager terminal management -continue topical clindamycin 1% lotion -antibacterial [...] Past Histories independently gathered by the clinical technical support technician and the remaining scribed note accurately describes my personal service to the patient. Nova Bridges APRN.CNP July 28, 2021 8:03 AM documented in this encounterCleveland Clinic Medina Hospital05-24-2022 Miscellaneous Notes* Telephone Encounter - Juan [...] Flori Ford RN documented in this encounterCleveland Clinic Medina Hospital05-13-2022 Miscellaneous Notes* Telephone Encounter - Joanne Jade [...] No Elaine Enriquez LPN documented in this encounterCleveland Clinic Medina Hospital04-28-2022 Miscellaneous Notes* Telephone Encounter - Juan Francisco Hutchinson APRN.PEDRO - 06/15/2021 5:05 PM EDT PDMP website checked and validated. All prescriptions have been APPROPRIATELY filled. No suspiciousactivity was identified. 06/15/2021 by Juan Francisco Hutchinson APRN.STATE COMPTROLLER Rx sent Juan Francisco Hutchinson APRN.STATE COMPTROLLER * Telephone Encounter - Kristina Pete RN - 06/15/2021 4:43 PM EDT Patient phones requesting refills as follows: Pending Prescriptions Disp Refills OXYCODONE 10 MG TABLET 120 tablet 0 Sig: Take 1 tablet by mouth every 4 hours as needed (moderate-severe cancer pain) for up to 30 days. SHELBIE Class: C-II KAREN: No Please review and advise. Kristina Pete RN documented in this encounterCleveland Clinic Medina Hospital04-27-2022 History of Present illness Narrative* Cyn [...] pneumonitis She saw Dr. Alejandro sarmiento at [facility] for 2nd opinion cell([phone]) She agreed with out plan and recommended [...] and TSH, sed rate were reviewed in [facility]. ASSESSMENT AND PLAN: 1. Relapsed Hodgkin [...] 06/14/2021 Cyn Ramires MD, FACP CC: Jose Parra documented in this encounterCleveland [id number] Miscellaneous Notes* Telephone Encounter - Marilyn Hughes RN - 05/19/2021 9:09 AM EDT Pt with c/o sinus congestion, headache, cough, fatigue, T Max 101.3 last evening, then 'fever broke' afebrile this am. Dr Ramires notified and Z-pack sent to preferred pharmacy. Pt aware to call for worsening symptoms or temp >100.4 . Verbalized acknowledgement. Mairlyn Hughes RN documented in this encounterCleveland Clinic Medina Hospital03-30-2022 Miscellaneous Notes* Telephone Encounter - RHETT Mesa - 05/17/2021 2:31 PM EDT SOCIAL WORK FOLLOW UP NOTE: [facility] Date of service:05/17/2021 Celso Potts is being seen for a follow up social work visit. Today's visit includes: patient TOPICS ADDRESSED: mental health needs Called patient to convey to her behavioral health resources but patient was driving. She will call me later when she can record the information I can provide to her. PLAN: Referral to community resource F/U APPOINTMENT: RHETT Victoria-S Senior Innovation Manager [facility] Oncology documented in this encounterCleveland Clinic Medina Hospital03-30-2022 Miscellaneous Notes* Telephone Encounter - RHETT Mesa - 05/17/2021 1:58 PM EDT SOCIAL WORK FOLLOW UP NOTE: [facility] Date of service:05/17/2021 Celso Potts is being seen for a follow up social work visit. Today's visit includes: patient TOPICS ADDRESSED: mental health needs Advised patient that SRINIVASAN Garsia from [facility] asked me to give patient local behavioral health resources. I forwarded this request to MATILDE Spear, who is a behavior health social services manager and is expert in these types of resources. I advised patient that Katarzyna should be reaching out to her. PLAN: Continue follow up as needed F/U APPOINTMENT: PRN RHETT Mesa-S Senior Innovation Manager [facility] Oncology documented in this encounterCleveland Clinic Medina Hospital03-30-2022 Instructions* Patient Instructions* Juan Francisco Hutchinson APRN.CNP - 05/17/2021 11:35 AM EDT Juan Francisco Hutchinson NP-C Department of Palliative and Supportive Care Palliative Care - Specialty services in symptom management and support For questions or prescription refills, call: Saturday - Saturday 9AM-5PM Chantal Newberry RN, BSN - Board Handler [phone] Please call 5 days in advance Evenings, Weekends, Holidays: [phone] (ask for palliative medicine on-call provider) For appointments, cancellations or reschedule, call: [phone] documented in this encounterCleveland Clinic Medina Hospital03-30-2022 History of Present illness Narrative* Juan Francisco Hutchinson APRN.PEDRO - 05/17/2021 11:00 AM EDT PALLIATIVE MEDICINE [...] (on AC). She is transferring care to [facility] for palliative care. She has previously followed with Dr. Mosquera (last appt 04/12/2020) for management of anxiety, depression, neuropathy, and pain. Subjective Celso presents today alone. Reports feeling fairly well. Recently returned from vacation with friends in [place] where she had a great time although [...] Dr. Mosquera at last visit. Modified ESAS ([place] Symptom Assessment Scale) Information Provided By: Patient [...] was identified. 05/17/2021 by Juan Francisco Hutchinson APRN.STATE COMPTROLLER Urine Screen Lab Results Component Value Date [...] Urine pH, Pain Ocasio 6.3 02/24/2021 Specific [place],Ur Pain Ocasio 1.012 02/24/2021 Oxidants,Ur 46 02/24/2021 [...] 17, 2021 7:01 AM documented in this encounterCleveland Clinic Medina Hospital10-06-2021 NoteHNO ID: [id number] Author: RT Mir(R) Service: ? Author Type: [...] BY: RT Mir(R) November 23, 2020 10:59 [facility] [id number] History of Past illness Narrative* Problem Noted Date Diagnosed Date Resolved Date Radiation induced neuropathy 10/18/2020 03/07/2023 Menorrhagia with regular cycle 03/15/2017 01/01/2018 Overview: Added automatically from request for surgery [id number] History of pulmonary embolism 04/25/2016 01/01/2018 Neoplastic [...] FOLLOW-UP 10/27/2012 Overview: 32 yo female from [place], [place]. Family involved with care, at bedside. plan to discharge patient home - will arrange with case management for post op care as needed - follow up in OPD in 7-10 days Post-op pain 10/27/2012 12/26/2015 Overview: currently well controlled with LOFTSMAN/WOMAN. will start PO pain meds today 10/27. tolerating percocet, pain relatively well controlled. Hodgkin's disease with nodular sclerosis 05/27/2012 12/26/2015 Overview: Oncology history (per Dr. 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 Hodgkin's disease, unspecified 02/05/2012 05/11/2014 Vaginal bleeding 12/26/2015 Overview: --likely from thrombocytopenia. No menses in prior 8 months. Scant amount reported on 03/29 and 03/30, now resolved --monitor bleeding by counting pads --should f/u with her [facility] provider after BMT Premature menopause 12/26/19 16 Postmenopausal atrophic vaginitis 12/26/2015 Dyspareunia 12/26/2015 documented as of this encounter (statuses as of 03/28/2023) [facility]08-[facility] History of Past illness Narrative* Problem Noted Date Diagnosed Date Resolved Date Radiation induced neuropathy 10/18/2020 03/07/2023 Menorrhagia with regular cycle 03/15/2017 01/01/2018 Overview: Added automatically from request for surgery [id number] History of pulmonary embolism 04/25/2016 01/01/2018 Neoplastic [...] FOLLOW-UP 10/27/2012 Overview: 32 yo female from [place]. Family involved with care, at bedside. plan to discharge patient home - will arrange with case management for post op care as needed - follow up in OPD in 7-10 days Post-op pain 10/27/2012 12/26/2015 Overview: currently well controlled with LOFTSMAN/WOMAN. will start PO pain meds today 10/27. tolerating percocet, pain relatively well controlled. Hodgkin's disease with nodular sclerosis 05/27/2012 12/26/2015 Overview: Oncology history (per Dr. 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 Hodgkin's disease, unspecified 02/05/2012 05/11/2014 Vaginal bleeding 12/26/2015 Overview: --likely from thrombocytopenia. No menses in prior 8 months. Scant amount reported on 03/29 and 03/30, now resolved --monitor bleeding by counting pads --should f/u with her [facility] provider after BMT Premature menopause 12/26/19 16 Postmenopausal atrophic vaginitis 12/26/2015 Dyspareunia 12/26/2015 documented as of this encounter (statuses as of 03/28/2023) [facility] History of Past illness Narrative* Problem Noted Date Diagnosed Date Resolved Date Radiation induced neuropathy 10/18/2020 03/07/2023 Menorrhagia with regular cycle 03/15/2017 01/01/2018 Overview: Added automatically from request for surgery [id number] History of pulmonary embolism 04/25/2016 01/01/2018 Neoplastic [...] FOLLOW-UP 10/27/2012 Overview: 32 yo female from [place]. Family involved with care, at bedside. plan to discharge patient home - will arrange with case management for post op care as needed - follow up in OPD in 7-10 days Post-op pain 10/27/2012 12/26/2015 Overview: currently well controlled with LOFTSMAN/WOMAN. will start PO pain meds today 10/27. tolerating percocet, pain relatively well controlled. Hodgkin's disease with nodular sclerosis 05/27/2012 12/26/2015 Overview: Oncology history (per Dr. 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 Hodgkin's disease, unspecified 02/05/2012 05/11/2014 Vaginal bleeding 12/26/2015 Overview: --likely from thrombocytopenia. No menses in prior 8 months. Scant amount reported on 03/29 and 03/30, now resolved --monitor bleeding by counting pads --should f/u with her [facility] provider after BMT Premature menopause 12/26/19 16 Postmenopausal atrophic vaginitis 12/26/2015 Dyspareunia 12/26/2015 documented as of this encounter (statuses as of 03/28/2023) [facility] History of Past illness Narrative* Problem Noted Date Diagnosed Date Resolved Date Radiation induced neuropathy 10/18/2020 03/07/2023 Menorrhagia with regular cycle 03/15/2017 01/01/2018 Overview: Added automatically from request for surgery [id number] History of pulmonary embolism 04/25/2016 01/01/2018 Neoplastic [...] FOLLOW-UP 10/27/2012 Overview: 32 yo female from [place]. Family involved with care, at bedside. plan to discharge patient home - will arrange with case management for post op care as needed - follow up in OPD in 7-10 days Post-op pain 10/27/2012 12/26/2015 Overview: currently well controlled with LOFTSMAN/WOMAN. will start PO pain meds today 10/27. tolerating percocet, pain relatively well controlled. Hodgkin's disease with nodular sclerosis 05/27/2012 12/26/2015 Overview: Oncology history (per Dr. 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 Hodgkin's disease, unspecified 02/05/2012 05/11/2014 Vaginal bleeding 12/26/2015 Overview: --likely from thrombocytopenia. No menses in prior 8 months. Scant amount reported on 03/29 and 03/30, now resolved --monitor bleeding by counting pads --should f/u with her [facility] provider after BMT Premature menopause 12/26/19 16 Postmenopausal atrophic vaginitis 12/26/2015 Dyspareunia 12/26/2015 documented as of this encounter (statuses as of 04/01/2023) [facility] of Past illness Narrative* Problem Noted Date Resolved Date Menorrhagia with regular cycle 03/15/2017 1 03/03/2017 Overview: Added automatically from request for surgery [id number] History of pulmonary embolism 04/25/2016 Neoplastic (malignant) [...] FOLLOW-UP 10/27/20122015 Overview: 32 yo female from [place]. Family involved with care, at bedside. plan to discharge patient home - will arrange with case management for post op care as needed - follow up in OPD in 7-10 days Post-op pain 10/27/2012 12/26/2015 Overview: currently well controlled with [employer]. will start PO pain meds today 10/27. tolerating percocet, pain relatively well controlled. Hodgkin's disease with nodular sclerosis 013 12/26/2015 Overview: Oncology history (per Dr. 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 Hodgkin's disease, unspecified 02/05/2012 0 05/11/2014 Vaginal bleeding 12/26/2015 Overview: --likely from thrombocytopenia. No menses in prior 8 months. Scant amount reported on 03/29 and 03/30, now resolved --monitor bleeding by counting pads --should f/u with her [employer] provider after BMT Premature menopause 12/26/2015 Postmenopausal atrophic vaginitis 12/26/2015 Dyspareunia 12/26/2015 documented as of this encounter (statuses as of 05/17/2021) [facility]01-[facility] History of Past illness Narrative* Problem Noted Date Resolved Date Menorrhagia with regular cycle 03/15/2017 1 03/03/2017 Overview: Added automatically from request for surgery [id number] History of pulmonary embolism 04/25/2016 Neoplastic (malignant) [...] FOLLOW-UP 10/27/20122015 Overview: 32 yo female from [place], [place]. Family involved with care, at bedside. plan to discharge patient home - will arrange with case management for post op care as needed - follow up in OPD in 7-10 days Post-op pain 10/27/2012 12/26/2015 Overview: currently well controlled with [employer]. will start PO pain meds today 10/27. tolerating percocet, pain relatively well controlled. Hodgkin's disease with nodular sclerosis 013 12/26/2015 Overview: Oncology history (per Dr. 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 Hodgkin's disease, unspecified 02/05/2012 0 05/11/2014 Vaginal bleeding 12/26/2015 Overview: --likely from thrombocytopenia. No menses in prior 8 months. Scant amount reported on 03/29 and 03/30, now resolved --monitor bleeding by counting pads --should f/u with her [employer] provider after BMT Premature menopause 12/26/2015 Postmenopausal atrophic vaginitis 12/26/2015 Dyspareunia 12/26/2015 documented as of this encounter (statuses as of 05/17/2021) [facility] History of Past illness Narrative* Problem Noted Date Resolved Date Menorrhagia with regular cycle 03/15/2017 1 03/03/2017 Overview: Added automatically from request for surgery [id number] History of pulmonary embolism 04/25/2016 Neoplastic (malignant) [...] FOLLOW-UP 10/27/20122015 Overview: 32 yo female from [place], [place]. Family involved with care, at bedside. plan to discharge patient home - will arrange with case management for post op care as needed - follow up in OPD in 7-10 days Post-op pain 10/27/2012 12/26/2015 Overview: currently well controlled with [employer]. will start PO pain meds today 10/27. tolerating percocet, pain relatively well controlled. Hodgkin's disease with nodular sclerosis 013 12/26/2015 Overview: Oncology history (per Dr. 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 Hodgkin's disease, unspecified 02/05/2012 0 05/11/2014 Vaginal bleeding 12/26/2015 Overview: --likely from thrombocytopenia. No menses in prior 8 months. Scant amount reported on 03/29 and 03/30, now resolved --monitor bleeding by counting pads --should f/u with her [employer] provider after BMT Premature menopause 12/26/2015 Postmenopausal atrophic vaginitis 12/26/2015 Dyspareunia 12/26/2015 documented as of this encounter (statuses as of 05/17/2021) [facility] History of Past illness Narrative* Problem Noted Date Resolved Date Menorrhagia with regular cycle 03/15/2017 1 03/03/2017 Overview: Added automatically from request for surgery [id number] History of pulmonary embolism 04/25/2016 Neoplastic (malignant) [...] FOLLOW-UP 10/27/20122015 Overview: 32 yo female from [place]. Family involved with care, at bedside. plan to discharge patient home - will arrange with case management for post op care as needed - follow up in OPD in 7-10 days Post-op pain 10/27/2012 12/26/2015 Overview: currently well controlled with [employer]. will start PO pain meds today 10/27. tolerating percocet, pain relatively well controlled. Hodgkin's disease with nodular sclerosis 013 12/26/2015 Overview: Oncology history (per Dr. 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 Hodgkin's disease, unspecified 02/05/2012 0 05/11/2014 Vaginal bleeding 12/26/2015 Overview: --likely from thrombocytopenia. No menses in prior 8 months. Scant amount reported on 03/29 and 03/30, now resolved --monitor bleeding by counting pads --should f/u with her [employer] provider after BMT Premature menopause 12/26/2015 Postmenopausal atrophic vaginitis 12/26/2015 Dyspareunia 12/26/2015 documented as of this encounter (statuses as of 05/17/2021) [facility] History of Past illness Narrative* Problem Noted Date Resolved Date Menorrhagia with regular cycle 03/15/2017 1 03/03/2017 Overview: Added automatically from request for surgery [id number] History of pulmonary embolism 04/25/2016 Neoplastic (malignant) [...] FOLLOW-UP 10/27/20122015 Overview: 32 yo female from [place]. Family involved with care, at bedside. plan to discharge patient home - will arrange with case management for post op care as needed - follow up in OPD in 7-10 days Post-op pain 10/27/2012 12/26/2015 Overview: currently well controlled with [employer]. will start PO pain meds today 10/27. tolerating percocet, pain relatively well controlled. Hodgkin's disease with nodular sclerosis 013 12/26/2015 Overview: Oncology history (per Dr. 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 Hodgkin's disease, unspecified 02/05/2012 0 05/11/2014 Vaginal bleeding 12/26/2015 Overview: --likely from thrombocytopenia. No menses in prior 8 months. Scant amount reported on 03/29 and 03/30, now resolved --monitor bleeding by counting pads --should f/u with her [employer] provider after BMT Premature menopause 12/26/2015 Postmenopausal atrophic vaginitis 12/26/2015 Dyspareunia 12/26/2015 documented as of this encounter (statuses as of 05/17/2021) [facility] History of Past illness Narrative* Problem Noted Date Resolved Date Menorrhagia with regular cycle 03/15/2017 1 03/03/2017 Overview: Added automatically from request for surgery [id number] History of pulmonary embolism 04/25/2016 Neoplastic (malignant) [...] FOLLOW-UP 10/27/20122015 Overview: 32 yo female from [place]. Family involved with care, at bedside. plan to discharge patient home - will arrange with case management for post op care as needed - follow up in OPD in 7-10 days Post-op pain 10/27/2012 12/26/2015 Overview: currently well controlled with [employer]. will start PO pain meds today 10/27. tolerating percocet, pain relatively well controlled. Hodgkin's disease with nodular sclerosis 013 12/26/2015 Overview: Oncology history (per Dr. 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 Hodgkin's disease, unspecified 02/05/2012 0 05/11/2014 Vaginal bleeding 12/26/2015 Overview: --likely from thrombocytopenia. No menses in prior 8 months. Scant amount reported on 03/29 and 03/30, now resolved --monitor bleeding by counting pads --should f/u with her [employer] provider after BMT Premature menopause 12/26/2015 Postmenopausal atrophic vaginitis 12/26/2015 Dyspareunia 12/26/2015 documented as of this encounter (statuses as of 05/17/2021) [facility] History of Past illness Narrative* Problem Noted Date Resolved Date Menorrhagia with regular cycle 03/15/2017 1 03/03/2017 Overview: Added automatically from request for surgery [id number] History of pulmonary embolism 04/25/2016 Neoplastic (malignant) [...] FOLLOW-UP 10/27/20122015 Overview: 32 yo female from [place]. Family involved with care, at bedside. plan to discharge patient home - will arrange with case management for post op care as needed - follow up in OPD in 7-10 days Post-op pain 10/27/2012 12/26/2015 Overview: currently well controlled with [employer]. will start PO pain meds today 10/27. tolerating percocet, pain relatively well controlled. Hodgkin's disease with nodular sclerosis 013 12/26/2015 Overview: Oncology history (per Dr. 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 Hodgkin's disease, unspecified 02/05/2012 0 05/11/2014 Vaginal bleeding 12/26/2015 Overview: --likely from thrombocytopenia. No menses in prior 8 months. Scant amount reported on 03/29 and 03/30, now resolved --monitor bleeding by counting pads --should f/u with her [employer] provider after BMT Premature menopause 12/26/2015 Postmenopausal atrophic vaginitis 12/26/2015 Dyspareunia 12/26/2015 documented as of this encounter (statuses as of 05/19/2021) [facility] History of Past illness Narrative* Problem Noted Date Resolved Date Menorrhagia with regular cycle 03/15/2017 1 03/03/2017 Overview: Added automatically from request for surgery [id number] History of pulmonary embolism 04/25/2016 Neoplastic (malignant) [...] FOLLOW-UP 10/27/20122015 Overview: 32 yo female from [place]. Family involved with care, at bedside. plan to discharge patient home - will arrange with case management for post op care as needed - follow up in OPD in 7-10 days Post-op pain 10/27/2012 12/26/2015 Overview: currently well controlled with [employer]. will start PO pain meds today 10/27. tolerating percocet, pain relatively well controlled. Hodgkin's disease with nodular sclerosis 013 12/26/2015 Overview: Oncology history (per Dr. 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 Hodgkin's disease, unspecified 02/05/2012 0 05/11/2014 Vaginal bleeding 12/26/2015 Overview: --likely from thrombocytopenia. No menses in prior 8 months. Scant amount reported on 03/29 and 03/30, now resolved --monitor bleeding by counting pads --should f/u with her [employer] provider after BMT Premature menopause 12/26/2015 Postmenopausal atrophic vaginitis 12/26/2015 Dyspareunia 12/26/2015 documented as of this encounter (statuses as of 06/06/2021) [facility] History of Past illness Narrative* Problem Noted Date Resolved Date Menorrhagia with regular cycle 03/15/2017 1 03/03/2017 Overview: Added automatically from request for surgery [id number] History of pulmonary embolism 04/25/2016 Neoplastic (malignant) [...] FOLLOW-UP 10/27/20122015 Overview: 32 yo female from [place]. Family involved with care, at bedside. plan to discharge patient home - will arrange with case management for post op care as needed - follow up in OPD in 7-10 days Post-op pain 10/27/2012 12/26/2015 Overview: currently well controlled with [employer]. will start PO pain meds today 10/27. tolerating percocet, pain relatively well controlled. Hodgkin's disease with nodular sclerosis 013 12/26/2015 Overview: Oncology history (per Dr. 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 Hodgkin's disease, unspecified 02/05/2012 0 05/11/2014 Vaginal bleeding 12/26/2015 Overview: --likely from thrombocytopenia. No menses in prior 8 months. Scant amount reported on 03/29 and 03/30, now resolved --monitor bleeding by counting pads --should f/u with her [employer] provider after BMT Premature menopause 12/26/2015 Postmenopausal atrophic vaginitis 12/26/2015 Dyspareunia 12/26/2015 documented as of this encounter (statuses as of 06/07/2021) [facility] History of Past illness Narrative* Problem Noted Date Resolved Date Menorrhagia with regular cycle 03/15/2017 1 03/03/2017 Overview: Added automatically from request for surgery [id number] History of pulmonary embolism 04/25/2016 Neoplastic (malignant) [...] FOLLOW-UP 10/27/20122015 Overview: 32 yo female from [place]. Family involved with care, at bedside. plan to discharge patient home - will arrange with case management for post op care as needed - follow up in OPD in 7-10 days Post-op pain 10/27/2012 12/26/2015 Overview: currently well controlled with [employer]. will start PO pain meds today 10/27. tolerating percocet, pain relatively well controlled. Hodgkin's disease with nodular sclerosis 013 12/26/2015 Overview: Oncology history (per Dr. 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 Hodgkin's disease, unspecified 02/05/2012 0 05/11/2014 Vaginal bleeding 12/26/2015 Overview: --likely from thrombocytopenia. No menses in prior 8 months. Scant amount reported on 03/29 and 03/30, now resolved --monitor bleeding by counting pads --should f/u with her [employer] provider after BMT Premature menopause 12/26/2015 Postmenopausal atrophic vaginitis 12/26/2015 Dyspareunia 12/26/2015 documented as of this encounter (statuses as of 06/14/2021) [facility] History of Past illness Narrative* Problem Noted Date Resolved Date Menorrhagia with regular cycle 03/15/2017 1 03/03/2017 Overview: Added automatically from request for surgery [id number] History of pulmonary embolism 04/25/2016 Neoplastic (malignant) [...] FOLLOW-UP 10/27/20122015 Overview: 32 yo female from [place]. Family involved with care, at bedside. plan to discharge patient home - will arrange with case management for post op care as needed - follow up in OPD in 7-10 days Post-op pain 10/27/2012 12/26/2015 Overview: currently well controlled with [employer]. will start PO pain meds today 10/27. tolerating percocet, pain relatively well controlled. Hodgkin's disease with nodular sclerosis 013 12/26/2015 Overview: Oncology history (per Dr. 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 Hodgkin's disease, unspecified 02/05/2012 0 05/11/2014 Vaginal bleeding 12/26/2015 Overview: --likely from thrombocytopenia. No menses in prior 8 months. Scant amount reported on 03/29 and 03/30, now resolved --monitor bleeding by counting pads --should f/u with her [employer] provider after BMT Premature menopause 12/26/2015 Postmenopausal atrophic vaginitis 12/26/2015 Dyspareunia 12/26/2015 documented as of this encounter (statuses as of 06/14/2021) [facility] History of Past illness Narrative* Problem Noted Date Resolved Date Menorrhagia with regular cycle 03/15/2017 1 03/03/2017 Overview: Added automatically from request for surgery [id number] History of pulmonary embolism 04/25/2016 Neoplastic (malignant) [...] FOLLOW-UP 10/27/20122015 Overview: 32 yo female from [place]. Family involved with care, at bedside. plan to discharge patient home - will arrange with case management for post op care as needed - follow up in OPD in 7-10 days Post-op pain 10/27/2012 12/26/2015 Overview: currently well controlled with [employer]. will start PO pain meds today 10/27. tolerating percocet, pain relatively well controlled. Hodgkin's disease with nodular sclerosis 013 12/26/2015 Overview: Oncology history (per Dr. 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 Hodgkin's disease, unspecified 02/05/2012 0 05/11/2014 Vaginal bleeding 12/26/2015 Overview: --likely from thrombocytopenia. No menses in prior 8 months. Scant amount reported on 03/29 and 03/30, now resolved --monitor bleeding by counting pads --should f/u with her [employer] provider after BMT Premature menopause 12/26/2015 Postmenopausal atrophic vaginitis 12/26/2015 Dyspareunia 12/26/2015 documented as of this encounter (statuses as of 06/15/2021) [facility] of Past illness Narrative* Problem Noted Date Resolved Date Menorrhagia with regular cycle 03/15/2017 1 03/03/2017 Overview: Added automatically from request for surgery [id number] History of pulmonary embolism 04/25/2016 Neoplastic (malignant) [...] FOLLOW-UP 10/27/20122015 Overview: 32 yo female from [place]. Family involved with care, at bedside. plan to discharge patient home - will arrange with case management for post op care as needed - follow up in OPD in 7-10 days Post-op pain 10/27/2012 12/26/2015 Overview: currently well controlled with [employer]. will start PO pain meds today 10/27. tolerating percocet, pain relatively well controlled. Hodgkin's disease with nodular sclerosis 013 12/26/2015 Overview: Oncology history (per Dr. 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 Hodgkin's disease, unspecified 02/05/2012 0 05/11/2014 Vaginal bleeding 12/26/2015 Overview: --likely from thrombocytopenia. No menses in prior 8 months. Scant amount reported on 03/29 and 03/30, now resolved --monitor bleeding by counting pads --should f/u with her [employer] provider after BMT Premature menopause 12/26/2015 Postmenopausal atrophic vaginitis 12/26/2015 Dyspareunia 12/26/2015 documented as of this encounter (statuses as of 06/30/2021) [facility] of Past illness Narrative* Problem Noted Date Resolved Date Menorrhagia with regular cycle 03/15/2017 1 03/03/2017 Overview: Added automatically from request for surgery [id number] History of pulmonary embolism 04/25/2016 Neoplastic (malignant) [...] FOLLOW-UP 10/27/20122015 Overview: 32 yo female from [place]. Family involved with care, at bedside. plan to discharge patient home - will arrange with case management for post op care as needed - follow up in OPD in 7-10 days Post-op pain 10/27/2012 12/26/2015 Overview: currently well controlled with [employer]. will start PO pain meds today 10/27. tolerating percocet, pain relatively well controlled. Hodgkin's disease with nodular sclerosis 013 12/26/2015 Overview: Oncology history (per Dr. 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 Hodgkin's disease, unspecified 02/05/2012 0 05/11/2014 Vaginal bleeding 12/26/2015 Overview: --likely from thrombocytopenia. No menses in prior 8 months. Scant amount reported on 03/29 and 03/30, now resolved --monitor bleeding by counting pads --should f/u with her [employer] provider after BMT Premature menopause 12/26/2015 Postmenopausal atrophic vaginitis 12/26/2015 Dyspareunia 12/26/2015 documented as of this encounter (statuses as of 07/05/2021) [facility] of Past illness Narrative* Problem Noted Date Resolved Date Menorrhagia with regular cycle 03/15/2017 1 03/03/2017 Overview: Added automatically from request for surgery [id number] History of pulmonary embolism 04/25/2016 Neoplastic (malignant) [...] FOLLOW-UP 10/27/20122015 Overview: 32 yo female from [place]. Family involved with care, at bedside. plan to discharge patient home - will arrange with case management for post op care as needed - follow up in OPD in 7-10 days Post-op pain 10/27/2012 12/26/2015 Overview: currently well controlled with [employer]. will start PO pain meds today 10/27. tolerating percocet, pain relatively well controlled. Hodgkin's disease with nodular sclerosis 013 12/26/2015 Overview: Oncology history (per Dr. 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 Hodgkin's disease, unspecified 02/05/2012 0 05/11/2014 Vaginal bleeding 12/26/2015 Overview: --likely from thrombocytopenia. No menses in prior 8 months. Scant amount reported on 03/29 and 03/30, now resolved --monitor bleeding by counting pads --should f/u with her [employer] provider after BMT Premature menopause 12/26/2015 Postmenopausal atrophic vaginitis 12/26/2015 Dyspareunia 12/26/2015 documented as of this encounter (statuses as of 07/06/2021) [facility] of Past illness Narrative* Problem Noted Date Resolved Date Menorrhagia with regular cycle 03/15/2017 1 03/03/2017 Overview: Added automatically from request for surgery [id number] History of pulmonary embolism 04/25/2016 Neoplastic (malignant) [...] FOLLOW-UP 10/27/20122015 Overview: 32 yo female from [place]. Family involved with care, at bedside. plan to discharge patient home - will arrange with case management for post op care as needed - follow up in OPD in 7-10 days Post-op pain 10/27/2012 12/26/2015 Overview: currently well controlled with [employer]. will start PO pain meds today 10/27. tolerating percocet, pain relatively well controlled. Hodgkin's disease with nodular sclerosis 013 12/26/2015 Overview: Oncology history (per Dr. 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 Hodgkin's disease, unspecified 02/05/2012 0 05/11/2014 Vaginal bleeding 12/26/2015 Overview: --likely from thrombocytopenia. No menses in prior 8 months. Scant amount reported on 03/29 and 03/30, now resolved --monitor bleeding by counting pads --should f/u with her [employer] provider after BMT Premature menopause 12/26/2015 Postmenopausal atrophic vaginitis 12/26/2015 Dyspareunia 12/26/2015 documented as of this encounter (statuses as of 2021) [facility]01-[facility]2018 History of Past illness Narrative* Problem Noted Date Resolved Date Menorrhagia with regular cycle 03/15/2017 1 03/03/2017 Overview: Added automatically from request for surgery [id number] History of pulmonary embolism 04/25/2016 Neoplastic (malignant) [...] FOLLOW-UP 10/27/20122015 Overview: 32 yo female from [place], [place]. Family involved with care, at bedside. plan to discharge patient home - will arrange with case management for post op care as needed - follow up in OPD in 7-10 days Post-op pain 10/27/2012 12/26/2015 Overview: currently well controlled with [employer]. will start PO pain meds today 10/27. tolerating percocet, pain relatively well controlled. Hodgkin's disease with nodular sclerosis 013 12/26/2015 Overview: Oncology history (per Dr. 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 Hodgkin's disease, unspecified 02/05/2012 0 05/11/2014 Vaginal bleeding 12/26/2015 Overview: --likely from thrombocytopenia. No menses in prior 8 months. Scant amount reported on 03/29 and 03/30, now resolved --monitor bleeding by counting pads --should f/u with her [employer] provider after BMT Premature menopause 12/26/2015 Postmenopausal atrophic vaginitis 12/26/2015 Dyspareunia 12/26/2015 documented as of this encounter (statuses as of 2021) [facility] History of Past illness Narrative* Problem Noted Date Resolved Date Menorrhagia with regular cycle 03/15/2017 1 03/03/2017 Overview: Added automatically from request for surgery [id number] History of pulmonary embolism 04/25/2016 Neoplastic (malignant) [...] FOLLOW-UP 10/27/20122015 Overview: 32 yo female from [place], [place]. Family involved with care, at bedside. plan to discharge patient home - will arrange with case management for post op care as needed - follow up in OPD in 7-10 days Post-op pain 10/27/2012 12/26/2015 Overview: currently well controlled with [employer]. will start PO pain meds today 10/27. tolerating percocet, pain relatively well controlled. Hodgkin's disease with nodular sclerosis 013 12/26/2015 Overview: Oncology history (per Dr. 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 Hodgkin's disease, unspecified 02/05/2012 0 05/11/2014 Vaginal bleeding 12/26/2015 Overview: --likely from thrombocytopenia. No menses in prior 8 months. Scant amount reported on 03/29 and 03/30, now resolved --monitor bleeding by counting pads --should f/u with her [employer] provider after BMT Premature menopause 12/26/2015 Postmenopausal atrophic vaginitis 12/26/2015 Dyspareunia 12/26/2015 documented as of this encounter (statuses as of 07/26/2021) [facility] History of Past illness Narrative* Problem Noted Date Resolved Date Menorrhagia with regular cycle 03/15/2017 1 03/03/2017 Overview: Added automatically from request for surgery [id number] History of pulmonary embolism 04/25/2016 Neoplastic (malignant) [...] FOLLOW-UP 10/27/20122015 Overview: 32 yo female from [place]. Family involved with care, at bedside. plan to discharge patient home - will arrange with case management for post op care as needed - follow up in OPD in 7-10 days Post-op pain 10/27/2012 12/26/2015 Overview: currently well controlled with [employer]. will start PO pain meds today 10/27. tolerating percocet, pain relatively well controlled. Hodgkin's disease with nodular sclerosis 013 12/26/2015 Overview: Oncology history (per Dr. 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 Hodgkin's disease, unspecified 02/05/2012 0 05/11/2014 Vaginal bleeding 12/26/2015 Overview: --likely from thrombocytopenia. No menses in prior 8 months. Scant amount reported on 03/29 and 03/30, now resolved --monitor bleeding by counting pads --should f/u with her [employer] provider after BMT Premature menopause 12/26/2015 Postmenopausal atrophic vaginitis 12/26/2015 Dyspareunia 12/26/2015 documented as of this encounter (statuses as of 07/28/2021) [facility] History of Past illness Narrative* Problem Noted Date Resolved Date Menorrhagia with regular cycle 03/15/2017 1 03/03/2017 Overview: Added automatically from request for surgery [id number] History of pulmonary embolism 04/25/2016 Neoplastic (malignant) [...] FOLLOW-UP 10/27/20122015 Overview: 32 yo female from [place]. Family involved with care, at bedside. plan to discharge patient home - will arrange with case management for post op care as needed - follow up in OPD in 7-10 days Post-op pain 10/27/2012 12/26/2015 Overview: currently well controlled with [employer]. will start PO pain meds today 10/27. tolerating percocet, pain relatively well controlled. Hodgkin's disease with nodular sclerosis 013 12/26/2015 Overview: Oncology history (per Dr. 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 Hodgkin's disease, unspecified 02/05/2012 0 05/11/2014 Vaginal bleeding 12/26/2015 Overview: --likely from thrombocytopenia. No menses in prior 8 months. Scant amount reported on 03/29 and 03/30, now resolved --monitor bleeding by counting pads --should f/u with her [employer] provider after BMT Premature menopause 12/26/2015 Postmenopausal atrophic vaginitis 12/26/2015 Dyspareunia 12/26/2015 documented as of this encounter (statuses as of 07/31/2021) [facility] History of Past illness Narrative* Problem Noted Date Resolved Date Menorrhagia with regular cycle 03/15/2017 1 03/03/2017 Overview: Added automatically from request for surgery [id number] History of pulmonary embolism 04/25/2016 Neoplastic (malignant) [...] FOLLOW-UP 10/27/20122015 Overview: 32 yo female from [place]. Family involved with care, at bedside. plan to discharge patient home - will arrange with case management for post op care as needed - follow up in OPD in 7-10 days Post-op pain 10/27/2012 12/26/2015 Overview: currently well controlled with [employer]. will start PO pain meds today 10/27. tolerating percocet, pain relatively well controlled. Hodgkin's disease with nodular sclerosis 013 12/26/2015 Overview: Oncology history (per Dr. 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 Hodgkin's disease, unspecified 02/05/2012 0 05/11/2014 Vaginal bleeding 12/26/2015 Overview: --likely from thrombocytopenia. No menses in prior 8 months. Scant amount reported on 03/29 and 03/30, now resolved --monitor bleeding by counting pads --should f/u with her [employer] provider after BMT Premature menopause 12/26/2015 Postmenopausal atrophic vaginitis 12/26/2015 Dyspareunia 12/26/2015 documented as of this encounter (statuses as of 07/31/2021) [facility] History of Past illness Narrative* Problem Noted Date Resolved Date Menorrhagia with regular cycle 03/15/2017 1 03/03/2017 Overview: Added automatically from request for surgery [id number] History of pulmonary embolism 04/25/2016 Neoplastic (malignant) [...] FOLLOW-UP 10/27/20122015 Overview: 32 yo female from [place]. Family involved with care, at bedside. plan to discharge patient home - will arrange with case management for post op care as needed - follow up in OPD in 7-10 days Post-op pain 10/27/2012 12/26/2015 Overview: currently well controlled with [employer]. will start PO pain meds today 10/27. tolerating percocet, pain relatively well controlled. Hodgkin's disease with nodular sclerosis 013 12/26/2015 Overview: Oncology history (per Dr. 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 Hodgkin's disease, unspecified 02/05/2012 0 05/11/2014 Vaginal bleeding 12/26/2015 Overview: --likely from thrombocytopenia. No menses in prior 8 months. Scant amount reported on 03/29 and 03/30, now resolved --monitor bleeding by counting pads --should f/u with her [employer] provider after BMT Premature menopause 12/26/2015 Postmenopausal atrophic vaginitis 12/26/2015 Dyspareunia 12/26/2015 documented as of this encounter (statuses as of 08/03/2021) [facility] History of Past illness Narrative* Problem Noted Date Resolved Date Menorrhagia with regular cycle 03/15/2017 1 03/03/2017 Overview: Added automatically from request for surgery [id number] History of pulmonary embolism 04/25/2016 Neoplastic (malignant) [...] FOLLOW-UP 10/27/20122015 Overview: 32 yo female from [place]. Family involved with care, at bedside. plan to discharge patient home - will arrange with case management for post op care as needed - follow up in OPD in 7-10 days Post-op pain 10/27/2012 12/26/2015 Overview: currently well controlled with [employer]. will start PO pain meds today 10/27. tolerating percocet, pain relatively well controlled. Hodgkin's disease with nodular sclerosis 013 12/26/2015 Overview: Oncology history (per Dr. 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 Hodgkin's disease, unspecified 02/05/2012 0 05/11/2014 Vaginal bleeding 12/26/2015 Overview: --likely from thrombocytopenia. No menses in prior 8 months. Scant amount reported on 03/29 and 03/30, now resolved --monitor bleeding by counting pads --should f/u with her [employer] provider after BMT Premature menopause 12/26/2015 Postmenopausal atrophic vaginitis 12/26/2015 Dyspareunia 12/26/2015 documented as of this encounter (statuses as of 08/15/2021) [facility] History of Past illness Narrative* Problem Noted Date Resolved Date Menorrhagia with regular cycle 03/15/2017 1 03/03/2017 Overview: Added automatically from request for surgery [id number] History of pulmonary embolism 04/25/2016 Neoplastic (malignant) [...] FOLLOW-UP 10/27/20122015 Overview: 32 yo female from [place]. Family involved with care, at bedside. plan to discharge patient home - will arrange with case management for post op care as needed - follow up in OPD in 7-10 days Post-op pain 10/27/2012 12/26/2015 Overview: currently well controlled with [employer]. will start PO pain meds today 10/27. tolerating percocet, pain relatively well controlled. Hodgkin's disease with nodular sclerosis 013 12/26/2015 Overview: Oncology history (per Dr. 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 Hodgkin's disease, unspecified 02/05/2012 0 05/11/2014 Vaginal bleeding 12/26/2015 Overview: --likely from thrombocytopenia. No menses in prior 8 months. Scant amount reported on 03/29 and 03/30, now resolved --monitor bleeding by counting pads --should f/u with her [employer] provider after BMT Premature menopause 12/26/2015 Postmenopausal atrophic vaginitis 12/26/2015 Dyspareunia 12/26/2015 documented as of this encounter (statuses as of 08/16/2021) [facility] History of Past illness Narrative* Problem Noted Date Resolved Date Menorrhagia with regular cycle 03/15/2017 1 03/03/2017 Overview: Added automatically from request for surgery [id number] History of pulmonary embolism 04/25/2016 Neoplastic (malignant) [...] FOLLOW-UP 10/27/20122015 Overview: 32 yo female from [place]. Family involved with care, at bedside. plan to discharge patient home - will arrange with case management for post op care as needed - follow up in OPD in 7-10 days Post-op pain 10/27/2012 12/26/2015 Overview: currently well controlled with [employer]. will start PO pain meds today 10/27. tolerating percocet, pain relatively well controlled. Hodgkin's disease with nodular sclerosis 013 12/26/2015 Overview: Oncology history (per Dr. 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 Hodgkin's disease, unspecified 02/05/2012 0 05/11/2014 Vaginal bleeding 12/26/2015 Overview: --likely from thrombocytopenia. No menses in prior 8 months. Scant amount reported on 03/29 and 03/30, now resolved --monitor bleeding by counting pads --should f/u with her [employer] provider after BMT Premature menopause 12/26/2015 Postmenopausal atrophic vaginitis 12/26/2015 Dyspareunia 12/26/2015 documented as of this encounter (statuses as of 08/30/2021) [facility] History of Past illness Narrative* Problem Noted Date Resolved Date Menorrhagia with regular cycle 03/15/2017 1 03/03/2017 Overview: Added automatically from request for surgery [id number] History of pulmonary embolism 04/25/2016 Neoplastic (malignant) [...] FOLLOW-UP 10/27/20122015 Overview: 32 yo female from [place]. Family involved with care, at bedside. plan to discharge patient home - will arrange with case management for post op care as needed - follow up in OPD in 7-10 days Post-op pain 10/27/2012 12/26/2015 Overview: currently well controlled with [employer]. will start PO pain meds today 10/27. tolerating percocet, pain relatively well controlled. Hodgkin's disease with nodular sclerosis 013 12/26/2015 Overview: Oncology history (per Dr. 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 Hodgkin's disease, unspecified 02/05/2012 0 05/11/2014 Vaginal bleeding 12/26/2015 Overview: --likely from thrombocytopenia. No menses in prior 8 months. Scant amount reported on 03/29 and 03/30, now resolved --monitor bleeding by counting pads --should f/u with her [employer] provider after BMT Premature menopause 12/26/2015 Postmenopausal atrophic vaginitis 12/26/2015 Dyspareunia 12/26/2015 documented as of this encounter (statuses as of 09/04/2021) [facility] History of Past illness Narrative* Problem Noted Date Resolved Date Menorrhagia with regular cycle 03/15/2017 1 03/03/2017 Overview: Added automatically from request for surgery [id number] History of pulmonary embolism 04/25/2016 Neoplastic (malignant) [...] FOLLOW-UP 10/27/20122015 Overview: 32 yo female from [place]. Family involved with care, at bedside. plan to discharge patient home - will arrange with case management for post op care as needed - follow up in OPD in 7-10 days Post-op pain 10/27/2012 12/26/2015 Overview: currently well controlled with [employer]. will start PO pain meds today 10/27. tolerating percocet, pain relatively well controlled. Hodgkin's disease with nodular sclerosis 013 12/26/2015 Overview: Oncology history (per Dr. 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 Hodgkin's disease, unspecified 02/05/2012 0 05/11/2014 Vaginal bleeding 12/26/2015 Overview: --likely from thrombocytopenia. No menses in prior 8 months. Scant amount reported on 03/29 and 03/30, now resolved --monitor bleeding by counting pads --should f/u with her [employer] provider after BMT Premature menopause 12/26/2015 Postmenopausal atrophic vaginitis 12/26/2015 Dyspareunia 12/26/2015 documented as of this encounter (statuses as of 09/04/2021) [facility] of Past illness Narrative* Problem Noted Date Resolved Date Menorrhagia with regular cycle 03/15/2017 1 03/03/2017 Overview: Added automatically from request for surgery [id number] History of pulmonary embolism 04/25/2016 Neoplastic (malignant) [...] FOLLOW-UP 10/27/20122015 Overview: 32 yo female from [place]. Family involved with care, at bedside. plan to discharge patient home - will arrange with case management for post op care as needed - follow up in OPD in 7-10 days Post-op pain 10/27/2012 12/26/2015 Overview: currently well controlled with [employer]. will start PO pain meds today 10/27. tolerating percocet, pain relatively well controlled. Hodgkin's disease with nodular sclerosis 013 12/26/2015 Overview: Oncology history (per Dr. 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 Hodgkin's disease, unspecified 02/05/2012 0 05/11/2014 Vaginal bleeding 12/26/2015 Overview: --likely from thrombocytopenia. No menses in prior 8 months. Scant amount reported on 03/29 and 03/30, now resolved --monitor bleeding by counting pads --should f/u with her [employer] provider after BMT Premature menopause 12/26/2015 Postmenopausal atrophic vaginitis 12/26/2015 Dyspareunia 12/26/2015 documented as of this encounter (statuses as of 09/05/2021) [facility] of Past illness Narrative* Problem Noted Date Resolved Date Menorrhagia with regular cycle 03/15/2017 1 03/03/2017 Overview: Added automatically from request for surgery [id number] History of pulmonary embolism 04/25/2016 Neoplastic (malignant) [...] FOLLOW-UP 10/27/20122015 Overview: 32 yo female from [place]. Family involved with care, at bedside. plan to discharge patient home - will arrange with case management for post op care as needed - follow up in OPD in 7-10 days Post-op pain 10/27/2012 12/26/2015 Overview: currently well controlled with [employer]. will start PO pain meds today 10/27. tolerating percocet, pain relatively well controlled. Hodgkin's disease with nodular sclerosis 013 12/26/2015 Overview: Oncology history (per Dr. 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 Hodgkin's disease, unspecified 02/05/2012 0 05/11/2014 Vaginal bleeding 12/26/2015 Overview: --likely from thrombocytopenia. No menses in prior 8 months. Scant amount reported on 03/29 and 03/30, now resolved --monitor bleeding by counting pads --should f/u with her [employer] provider after BMT Premature menopause 12/26/2015 Postmenopausal atrophic vaginitis 12/26/2015 Dyspareunia 12/26/2015 documented as of this encounter (statuses as of 09/06/2021) [facility] of Past illness Narrative* Problem Noted Date Resolved Date Menorrhagia with regular cycle 03/15/2017 1 03/03/2017 Overview: Added automatically from request for surgery [id number] History of pulmonary embolism 04/25/2016 Neoplastic (malignant) [...] FOLLOW-UP 10/27/20122015 Overview: 32 yo female from [place]. Family involved with care, at bedside. plan to discharge patient home - will arrange with case management for post op care as needed - follow up in OPD in 7-10 days Post-op pain 10/27/2012 12/26/2015 Overview: currently well controlled with [employer]. will start PO pain meds today 10/27. tolerating percocet, pain relatively well controlled. Hodgkin's disease with nodular sclerosis 013 12/26/2015 Overview: Oncology history (per Dr. 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 Hodgkin's disease, unspecified 02/05/2012 0 05/11/2014 Vaginal bleeding 12/26/2015 Overview: --likely from thrombocytopenia. No menses in prior 8 months. Scant amount reported on 03/29 and 03/30, now resolved --monitor bleeding by counting pads --should f/u with her [employer] provider after BMT Premature menopause 12/26/2015 Postmenopausal atrophic vaginitis 12/26/2015 Dyspareunia 12/26/2015 documented as of this encounter (statuses as of 09/11/2021) [facility] of Past illness Narrative* Problem Noted Date Resolved Date Menorrhagia with regular cycle 03/15/2017 1 03/03/2017 Overview: Added automatically from request for surgery [id number] History of pulmonary embolism 04/25/2016 Neoplastic (malignant) [...] FOLLOW-UP 10/27/20122015 Overview: 32 yo female from [place]. Family involved with care, at bedside. plan to discharge patient home - will arrange with case management for post op care as needed - follow up in OPD in 7-10 days Post-op pain 10/27/2012 12/26/2015 Overview: currently well controlled with [employer]. will start PO pain meds today 10/27. tolerating percocet, pain relatively well controlled. Hodgkin's disease with nodular sclerosis 013 12/26/2015 Overview: Oncology history (per Dr. 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 Hodgkin's disease, unspecified 02/05/2012 0 05/11/2014 Vaginal bleeding 12/26/2015 Overview: --likely from thrombocytopenia. No menses in prior 8 months. Scant amount reported on 03/29 and 03/30, now resolved --monitor bleeding by counting pads --should f/u with her [employer] provider after BMT Premature menopause 12/26/2015 Postmenopausal atrophic vaginitis 12/26/2015 Dyspareunia 12/26/2015 documented as of this encounter (statuses as of 09/22/2021) [facility]01-[facility]-2018 History of Past illness Narrative* Problem Noted Date Resolved Date Menorrhagia with regular cycle 03/15/2017 1 03/03/2017 Overview: Added automatically from request for surgery [id number] History of pulmonary embolism 04/25/2016 Neoplastic (malignant) [...] FOLLOW-UP 10/27/20122015 Overview: 32 yo female from [place], [place]. Family involved with care, at bedside. plan to discharge patient home - will arrange with case management for post op care as needed - follow up in OPD in 7-10 days Post-op pain 10/27/2012 12/26/2015 Overview: currently well controlled with [employer]. will start PO pain meds today 10/27. tolerating percocet, pain relatively well controlled. Hodgkin's disease with nodular sclerosis 013 12/26/2015 Overview: Oncology history (per Dr. 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 Hodgkin's disease, unspecified 02/05/2012 0 05/11/2014 Vaginal bleeding 12/26/2015 Overview: --likely from thrombocytopenia. No menses in prior 8 months. Scant amount reported on 03/29 and 03/30, now resolved --monitor bleeding by counting pads --should f/u with her [employer] provider after BMT Premature menopause 12/26/2015 Postmenopausal atrophic vaginitis 12/26/2015 Dyspareunia 12/26/2015 documented as of this encounter (statuses as of 09/22/2021) [facility] History of Past illness Narrative* Problem Noted Date Resolved Date Menorrhagia with regular cycle 03/15/2017 1 03/03/2017 Overview: Added automatically from request for surgery [id number] History of pulmonary embolism 04/25/2016 Neoplastic (malignant) [...] FOLLOW-UP 10/27/20122015 Overview: 32 yo female from [place], [place]. Family involved with care, at bedside. plan to discharge patient home - will arrange with case management for post op care as needed - follow up in OPD in 7-10 days Post-op pain 10/27/2012 12/26/2015 Overview: currently well controlled with [employer]. will start PO pain meds today 10/27. tolerating percocet, pain relatively well controlled. Hodgkin's disease with nodular sclerosis 013 12/26/2015 Overview: Oncology history (per Dr. 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 Hodgkin's disease, unspecified 02/05/2012 0 05/11/2014 Vaginal bleeding 12/26/2015 Overview: --likely from thrombocytopenia. No menses in prior 8 months. Scant amount reported on 03/29 and 03/30, now resolved --monitor bleeding by counting pads --should f/u with her [employer] provider after BMT Premature menopause 12/26/2015 Postmenopausal atrophic vaginitis 12/26/2015 Dyspareunia 12/26/2015 documented as of this encounter (statuses as of 10/02/2021) [facility] History of Past illness Narrative* Problem Noted Date Resolved Date Menorrhagia with regular cycle 03/15/2017 1 03/03/2017 Overview: Added automatically from request for surgery [id number] History of pulmonary embolism 04/25/2016 Neoplastic (malignant) [...] FOLLOW-UP 10/27/20122015 Overview: 32 yo female from [place]. Family involved with care, at bedside. plan to discharge patient home - will arrange with case management for post op care as needed - follow up in OPD in 7-10 days Post-op pain 10/27/2012 12/26/2015 Overview: currently well controlled with [employer]OMAN. will start PO pain meds today 10/27. tolerating percocet, pain relatively well controlled. Hodgkin's disease with nodular sclerosis 013 12/26/2015 Overview: Oncology history (per Dr. 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 Hodgkin's disease, unspecified 02/05/2012 0 05/11/2014 Vaginal bleeding 12/26/2015 Overview: --likely from thrombocytopenia. No menses in prior 8 months. Scant amount reported on 03/29 and 03/30, now resolved --monitor bleeding by counting pads --should f/u with her [employer] provider after BMT Premature menopause 12/26/2015 Postmenopausal atrophic vaginitis 12/26/2015 Dyspareunia 12/26/2015 documented as of this encounter (statuses as of 10/05/2021) [facility] History of Past illness Narrative* Problem Noted Date Resolved Date Menorrhagia with regular cycle 03/15/2017 1 03/03/2017 Overview: Added automatically from request for surgery [id number] History of pulmonary embolism 04/25/2016 Neoplastic (malignant) [...] FOLLOW-UP 10/27/20122015 Overview: 32 yo female from [place]. Family involved with care, at bedside. plan to discharge patient home - will arrange with case management for post op care as needed - follow up in OPD in 7-10 days Post-op pain 10/27/2012 12/26/2015 Overview: currently well controlled with [employer]. will start PO pain meds today 10/27. tolerating percocet, pain relatively well controlled. Hodgkin's disease with nodular sclerosis 013 12/26/2015 Overview: Oncology history (per Dr. 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 Hodgkin's disease, unspecified 02/05/2012 0 05/11/2014 Vaginal bleeding 12/26/2015 Overview: --likely from thrombocytopenia. No menses in prior 8 months. Scant amount reported on 03/29 and 03/30, now resolved --monitor bleeding by counting pads --should f/u with her [employer] provider after BMT Premature menopause 12/26/2015 Postmenopausal atrophic vaginitis 12/26/2015 Dyspareunia 12/26/2015 documented as of this encounter (statuses as of 10/16/2021) [facility] History of Past illness Narrative* Problem Noted Date Resolved Date Menorrhagia with regular cycle 03/15/2017 1 03/03/2017 Overview: Added automatically from request for surgery [id number] History of pulmonary embolism 04/25/2016 Neoplastic (malignant) [...] FOLLOW-UP 10/27/20122015 Overview: 32 yo female from [place]. Family involved with care, at bedside. plan to discharge patient home - will arrange with case management for post op care as needed - follow up in OPD in 7-10 days Post-op pain 10/27/2012 12/26/2015 Overview: currently well controlled with [employer]. will start PO pain meds today 10/27. tolerating percocet, pain relatively well controlled. Hodgkin's disease with nodular sclerosis 013 12/26/2015 Overview: Oncology history (per Dr. 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 Hodgkin's disease, unspecified 02/05/2012 0 05/11/2014 Vaginal bleeding 12/26/2015 Overview: --likely from thrombocytopenia. No menses in prior 8 months. Scant amount reported on 03/29 and 03/30, now resolved --monitor bleeding by counting pads --should f/u with her [employer] provider after BMT Premature menopause 12/26/2015 Postmenopausal atrophic vaginitis 12/26/2015 Dyspareunia 12/26/2015 documented as of this encounter (statuses as of 10/18/2021) [facility] History of Past illness Narrative* Problem Noted Date Resolved Date Menorrhagia with regular cycle 03/15/2017 1 03/03/2017 Overview: Added automatically from request for surgery [id number] History of pulmonary embolism 04/25/2016 Neoplastic (malignant) [...] FOLLOW-UP 10/27/20122015 Overview: 32 yo female from [place]. Family involved with care, at bedside. plan to discharge patient home - will arrange with case management for post op care as needed - follow up in OPD in 7-10 days Post-op pain 10/27/2012 12/26/2015 Overview: currently well controlled with [employer]. will start PO pain meds today 10/27. tolerating percocet, pain relatively well controlled. Hodgkin's disease with nodular sclerosis 013 12/26/2015 Overview: Oncology history (per Dr. 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 Hodgkin's disease, unspecified 02/05/2012 0 05/11/2014 Vaginal bleeding 12/26/2015 Overview: --likely from thrombocytopenia. No menses in prior 8 months. Scant amount reported on 03/29 and 03/30, now resolved --monitor bleeding by counting pads --should f/u with her [employer] provider after BMT Premature menopause 12/26/2015 Postmenopausal atrophic vaginitis 12/26/2015 Dyspareunia 12/26/2015 documented as of this encounter (statuses as of 10/25/2021) [facility] History of Past illness Narrative* Problem Noted Date Resolved Date Menorrhagia with regular cycle 03/15/2017 1 03/03/2017 Overview: Added automatically from request for surgery [id number] History of pulmonary embolism 04/25/2016 Neoplastic (malignant) [...] FOLLOW-UP 10/27/20122015 Overview: 32 yo female from [place]. Family involved with care, at bedside. plan to discharge patient home - will arrange with case management for post op care as needed - follow up in OPD in 7-10 days Post-op pain 10/27/2012 12/26/2015 Overview: currently well controlled with [employer]. will start PO pain meds today 10/27. tolerating percocet, pain relatively well controlled. Hodgkin's disease with nodular sclerosis 013 12/26/2015 Overview: Oncology history (per Dr. 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 Hodgkin's disease, unspecified 02/05/2012 0 05/11/2014 Vaginal bleeding 12/26/2015 Overview: --likely from thrombocytopenia. No menses in prior 8 months. Scant amount reported on 03/29 and 03/30, now resolved --monitor bleeding by counting pads --should f/u with her [employer] provider after BMT Premature menopause 12/26/2015 Postmenopausal atrophic vaginitis 12/26/2015 Dyspareunia 12/26/2015 documented as of this encounter (statuses as of 10/25/2021) [facility] History of Past illness Narrative* Problem Noted Date Resolved Date Menorrhagia with regular cycle 03/15/2017 1 03/03/2017 Overview: Added automatically from request for surgery [id number] History of pulmonary embolism 04/25/2016 Neoplastic (malignant) [...] FOLLOW-UP 10/27/20122015 Overview: 32 yo female from [place]. Family involved with care, at bedside. plan to discharge patient home - will arrange with case management for post op care as needed - follow up in OPD in 7-10 days Post-op pain 10/27/2012 12/26/2015 Overview: currently well controlled with [employer]. will start PO pain meds today 10/27. tolerating percocet, pain relatively well controlled. Hodgkin's disease with nodular sclerosis 013 12/26/2015 Overview: Oncology history (per Dr. 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 Hodgkin's disease, unspecified 02/05/2012 0 05/11/2014 Vaginal bleeding 12/26/2015 Overview: --likely from thrombocytopenia. No menses in prior 8 months. Scant amount reported on 03/29 and 03/30, now resolved --monitor bleeding by counting pads --should f/u with her [employer] provider after BMT Premature menopause 12/26/2015 Postmenopausal atrophic vaginitis 12/26/2015 Dyspareunia 12/26/2015 documented as of this encounter (statuses as of 10/26/2021) [facility] History of Past illness Narrative* Problem Noted Date Resolved Date Menorrhagia with regular cycle 03/15/2017 1 03/03/2017 Overview: Added automatically from request for surgery [id number] History of pulmonary embolism 04/25/2016 Neoplastic (malignant) [...] FOLLOW-UP 10/27/20122015 Overview: 32 yo female from [place]. Family involved with care, at bedside. plan to discharge patient home - will arrange with case management for post op care as needed - follow up in OPD in 7-10 days Post-op pain 10/27/2012 12/26/2015 Overview: currently well controlled with [employer]. will start PO pain meds today 10/27. tolerating percocet, pain relatively well controlled. Hodgkin's disease with nodular sclerosis 013 12/26/2015 Overview: Oncology history (per Dr. 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 Hodgkin's disease, unspecified 02/05/2012 0 05/11/2014 Vaginal bleeding 12/26/2015 Overview: --likely from thrombocytopenia. No menses in prior 8 months. Scant amount reported on 03/29 and 03/30, now resolved --monitor bleeding by counting pads --should f/u with her [employer] provider after BMT Premature menopause 12/26/2015 Postmenopausal atrophic vaginitis 12/26/2015 Dyspareunia 12/26/2015 documented as of this encounter (statuses as of 10/26/2021) [facility] History of Past illness Narrative* Problem Noted Date Resolved Date Menorrhagia with regular cycle 03/15/2017 1 03/03/2017 Overview: Added automatically from request for surgery [id number] History of pulmonary embolism 04/25/2016 Neoplastic (malignant) [...] FOLLOW-UP 10/27/20122015 Overview: 32 yo female from [place]. Family involved with care, at bedside. plan to discharge patient home - will arrange with case management for post op care as needed - follow up in OPD in 7-10 days Post-op pain 10/27/2012 12/26/2015 Overview: currently well controlled with [employer]. will start PO pain meds today 10/27. tolerating percocet, pain relatively well controlled. Hodgkin's disease with nodular sclerosis 013 12/26/2015 Overview: Oncology history (per Dr. 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 Hodgkin's disease, unspecified 02/05/2012 0 05/11/2014 Vaginal bleeding 12/26/2015 Overview: --likely from thrombocytopenia. No menses in prior 8 months. Scant amount reported on 03/29 and 03/30, now resolved --monitor bleeding by counting pads --should f/u with her [employer] provider after BMT Premature menopause 12/26/2015 Postmenopausal atrophic vaginitis 12/26/2015 Dyspareunia 12/26/2015 documented as of this encounter (statuses as of 10/31/2021) [facility] History of Past illness Narrative* Problem Noted Date Resolved Date Menorrhagia with regular cycle 03/15/2017 1 03/03/2017 Overview: Added automatically from request for surgery [id number] History of pulmonary embolism 04/25/2016 Neoplastic (malignant) [...] FOLLOW-UP 10/27/20122015 Overview: 32 yo female from [place]. Family involved with care, at bedside. plan to discharge patient home - will arrange with case management for post op care as needed - follow up in OPD in 7-10 days Post-op pain 10/27/2012 12/26/2015 Overview: currently well controlled with [employer]. will start PO pain meds today 10/27. tolerating percocet, pain relatively well controlled. Hodgkin's disease with nodular sclerosis 013 12/26/2015 Overview: Oncology history (per Dr. 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 Hodgkin's disease, unspecified 02/05/2012 0 05/11/2014 Vaginal bleeding 12/26/2015 Overview: --likely from thrombocytopenia. No menses in prior 8 months. Scant amount reported on 03/29 and 03/30, now resolved --monitor bleeding by counting pads --should f/u with her [employer] provider after BMT Premature menopause 12/26/2015 Postmenopausal atrophic vaginitis 12/26/2015 Dyspareunia 12/26/2015 documented as of this encounter (statuses as of 11/08/2021) [facility] of Past illness Narrative* Problem Noted Date Resolved Date Menorrhagia with regular cycle 03/15/2017 1 03/03/2017 Overview: Added automatically from request for surgery [id number] History of pulmonary embolism 04/25/2016 Neoplastic (malignant) [...] FOLLOW-UP 10/27/20122015 Overview: 32 yo female from [place]. Family involved with care, at bedside. plan to discharge patient home - will arrange with case management for post op care as needed - follow up in OPD in 7-10 days Post-op pain 10/27/2012 12/26/2015 Overview: currently well controlled with [employer]. will start PO pain meds today 10/27. tolerating percocet, pain relatively well controlled. Hodgkin's disease with nodular sclerosis 013 12/26/2015 Overview: Oncology history (per Dr. 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 Hodgkin's disease, unspecified 02/05/2012 0 05/11/2014 Vaginal bleeding 12/26/2015 Overview: --likely from thrombocytopenia. No menses in prior 8 months. Scant amount reported on 03/29 and 03/30, now resolved --monitor bleeding by counting pads --should f/u with her [employer] provider after BMT Premature menopause 12/26/2015 Postmenopausal atrophic vaginitis 12/26/2015 Dyspareunia 12/26/2015 documented as of this encounter (statuses as of 11/13/2021) [facility] of Past illness Narrative* Problem Noted Date Resolved Date Menorrhagia with regular cycle 03/15/2017 1 03/03/2017 Overview: Added automatically from request for surgery [id number] History of pulmonary embolism 04/25/2016 Neoplastic (malignant) [...] FOLLOW-UP 10/27/20122015 Overview: 32 yo female from [place]. Family involved with care, at bedside. plan to discharge patient home - will arrange with case management for post op care as needed - follow up in OPD in 7-10 days Post-op pain 10/27/2012 12/26/2015 Overview: currently well controlled with [employer]. will start PO pain meds today 10/27. tolerating percocet, pain relatively well controlled. Hodgkin's disease with nodular sclerosis 013 12/26/2015 Overview: Oncology history (per Dr. 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 Hodgkin's disease, unspecified 02/05/2012 0 05/11/2014 Vaginal bleeding 12/26/2015 Overview: --likely from thrombocytopenia. No menses in prior 8 months. Scant amount reported on 03/29 and 03/30, now resolved --monitor bleeding by counting pads --should f/u with her [employer] provider after BMT Premature menopause 12/26/2015 Postmenopausal atrophic vaginitis 12/26/2015 Dyspareunia 12/26/2015 documented as of this encounter (statuses as of 11/13/2021) [facility] of Past illness Narrative* Problem Noted Date Resolved Date Menorrhagia with regular cycle 03/15/2017 1 03/03/2017 Overview: Added automatically from request for surgery [id number] History of pulmonary embolism 04/25/2016 Neoplastic (malignant) [...] FOLLOW-UP 10/27/20122015 Overview: 32 yo female from [place]. Family involved with care, at bedside. plan to discharge patient home - will arrange with case management for post op care as needed - follow up in OPD in 7-10 days Post-op pain 10/27/2012 12/26/2015 Overview: currently well controlled with [employer]AN. will start PO pain meds today 10/27. tolerating percocet, pain relatively well controlled. Hodgkin's disease with nodular sclerosis 013 12/26/2015 Overview: Oncology history (per Dr. 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 Hodgkin's disease, unspecified 02/05/2012 0 05/11/2014 Vaginal bleeding 12/26/2015 Overview: --likely from thrombocytopenia. No menses in prior 8 months. Scant amount reported on 03/29 and 03/30, now resolved --monitor bleeding by counting pads --should f/u with her [employer] provider after BMT Premature menopause 12/26/2015 Postmenopausal atrophic vaginitis 12/26/2015 Dyspareunia 12/26/2015 documented as of this encounter (statuses as of 11/14/2021) [facility] of Past illness Narrative* Problem Noted Date Resolved Date Menorrhagia with regular cycle 03/15/2017 1 03/03/2017 Overview: Added automatically from request for surgery [id number] History of pulmonary embolism 04/25/2016 Neoplastic (malignant) [...] FOLLOW-UP 10/27/20122015 Overview: 32 yo female from [place]. Family involved with care, at bedside. plan to discharge patient home - will arrange with case management for post op care as needed - follow up in OPD in 7-10 days Post-op pain 10/27/2012 12/26/2015 Overview: currently well controlled with [employer]. will start PO pain meds today 10/27. tolerating percocet, pain relatively well controlled. Hodgkin's disease with nodular sclerosis 013 12/26/2015 Overview: Oncology history (per Dr. 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 Hodgkin's disease, unspecified 02/05/2012 0 05/11/2014 Vaginal bleeding 12/26/2015 Overview: --likely from thrombocytopenia. No menses in prior 8 months. Scant amount reported on 03/29 and 03/30, now resolved --monitor bleeding by counting pads --should f/u with her [employer] provider after BMT Premature menopause 12/26/2015 Postmenopausal atrophic vaginitis 12/26/2015 Dyspareunia 12/26/2015 documented as of this encounter (statuses as of 11/15/2021) [facility]01-[facility]-2018 History of Past illness Narrative* Problem Noted Date Resolved Date Menorrhagia with regular cycle 03/15/2017 1 03/03/2017 Overview: Added automatically from request for surgery [id number] History of pulmonary embolism 04/25/2016 Neoplastic (malignant) [...] FOLLOW-UP 10/27/20122015 Overview: 32 yo female from [place], [place]. Family involved with care, at bedside. plan to discharge patient home - will arrange with case management for post op care as needed - follow up in OPD in 7-10 days Post-op pain 10/27/2012 12/26/2015 Overview: currently well controlled with [employer]. will start PO pain meds today 10/27. tolerating percocet, pain relatively well controlled. Hodgkin's disease with nodular sclerosis 013 12/26/2015 Overview: Oncology history (per Dr. 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 Hodgkin's disease, unspecified 02/05/2012 0 05/11/2014 Vaginal bleeding 12/26/2015 Overview: --likely from thrombocytopenia. No menses in prior 8 months. Scant amount reported on 03/29 and 03/30, now resolved --monitor bleeding by counting pads --should f/u with her [employer] provider after BMT Premature menopause 12/26/2015 Postmenopausal atrophic vaginitis 12/26/2015 Dyspareunia 12/26/2015 documented as of this encounter (statuses as of 11/15/2021) [facility] History of Past illness Narrative* Problem Noted Date Resolved Date Menorrhagia with regular cycle 03/15/2017 1 03/03/2017 Overview: Added automatically from request for surgery [id number] History of pulmonary embolism 04/25/2016 Neoplastic (malignant) [...] FOLLOW-UP 10/27/20122015 Overview: 32 yo female from [place], [place]. Family involved with care, at bedside. plan to discharge patient home - will arrange with case management for post op care as needed - follow up in OPD in 7-10 days Post-op pain 10/27/2012 12/26/2015 Overview: currently well controlled with [employer]. will start PO pain meds today 10/27. tolerating percocet, pain relatively well controlled. Hodgkin's disease with nodular sclerosis 013 12/26/2015 Overview: Oncology history (per Dr. 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 Hodgkin's disease, unspecified 02/05/2012 0 05/11/2014 Vaginal bleeding 12/26/2015 Overview: --likely from thrombocytopenia. No menses in prior 8 months. Scant amount reported on 03/29 and 03/30, now resolved --monitor bleeding by counting pads --should f/u with her [employer] provider after BMT Premature menopause 12/26/2015 Postmenopausal atrophic vaginitis 12/26/2015 Dyspareunia 12/26/2015 documented as of this encounter (statuses as of 12/04/2021) [facility] History of Past illness Narrative* Problem Noted Date Resolved Date Menorrhagia with regular cycle 03/15/2017 1 03/03/2017 Overview: Added automatically from request for surgery [id number] History of pulmonary embolism 04/25/2016 Neoplastic (malignant) [...] FOLLOW-UP 10/27/20122015 Overview: 32 yo female from [place]. Family involved with care, at bedside. plan to discharge patient home - will arrange with case management for post op care as needed - follow up in OPD in 7-10 days Post-op pain 10/27/2012 12/26/2015 Overview: currently well controlled with [employer]AN. will start PO pain meds today 10/27. tolerating percocet, pain relatively well controlled. Hodgkin's disease with nodular sclerosis 013 12/26/2015 Overview: Oncology history (per Dr. 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 Hodgkin's disease, unspecified 02/05/2012 0 05/11/2014 Vaginal bleeding 12/26/2015 Overview: --likely from thrombocytopenia. No menses in prior 8 months. Scant amount reported on 03/29 and 03/30, now resolved --monitor bleeding by counting pads --should f/u with her [employer] provider after BMT Premature menopause 12/26/2015 Postmenopausal atrophic vaginitis 12/26/2015 Dyspareunia 12/26/2015 documented as of this encounter (statuses as of 12/05/2021) [facility] History of Past illness Narrative* Problem Noted Date Resolved Date Menorrhagia with regular cycle 03/15/2017 1 03/03/2017 Overview: Added automatically from request for surgery [id number] History of pulmonary embolism 04/25/2016 Neoplastic (malignant) [...] FOLLOW-UP 10/27/20122015 Overview: 32 yo female from [place]. Family involved with care, at bedside. plan to discharge patient home - will arrange with case management for post op care as needed - follow up in OPD in 7-10 days Post-op pain 10/27/2012 12/26/2015 Overview: currently well controlled with [employer]. will start PO pain meds today 10/27. tolerating percocet, pain relatively well controlled. Hodgkin's disease with nodular sclerosis 013 12/26/2015 Overview: Oncology history (per Dr. 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 Hodgkin's disease, unspecified 02/05/2012 0 05/11/2014 Vaginal bleeding 12/26/2015 Overview: --likely from thrombocytopenia. No menses in prior 8 months. Scant amount reported on 03/29 and 03/30, now resolved --monitor bleeding by counting pads --should f/u with her [employer] provider after BMT Premature menopause 12/26/2015 Postmenopausal atrophic vaginitis 12/26/2015 Dyspareunia 12/26/2015 documented as of this encounter (statuses as of 12/06/2021) [facility] History of Past illness Narrative* Problem Noted Date Resolved Date Menorrhagia with regular cycle 03/15/2017 1 03/03/2017 Overview: Added automatically from request for surgery [id number] History of pulmonary embolism 04/25/2016 Neoplastic (malignant) [...] FOLLOW-UP 10/27/20122015 Overview: 32 yo female from [place]. Family involved with care, at bedside. plan to discharge patient home - will arrange with case management for post op care as needed - follow up in OPD in 7-10 days Post-op pain 10/27/2012 12/26/2015 Overview: currently well controlled with [employer]. will start PO pain meds today 10/27. tolerating percocet, pain relatively well controlled. Hodgkin's disease with nodular sclerosis 013 12/26/2015 Overview: Oncology history (per Dr. 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 Hodgkin's disease, unspecified 02/05/2012 0 05/11/2014 Vaginal bleeding 12/26/2015 Overview: --likely from thrombocytopenia. No menses in prior 8 months. Scant amount reported on 03/29 and 03/30, now resolved --monitor bleeding by counting pads --should f/u with her [employer] provider after BMT Premature menopause 12/26/2015 Postmenopausal atrophic vaginitis 12/26/2015 Dyspareunia 12/26/2015 documented as of this encounter (statuses as of 12/07/2021) [facility] History of Past illness Narrative* Problem Noted Date Resolved Date Menorrhagia with regular cycle 03/15/2017 1 03/03/2017 Overview: Added automatically from request for surgery [id number] History of pulmonary embolism 04/25/2016 Neoplastic (malignant) [...] FOLLOW-UP 10/27/20122015 Overview: 32 yo female from [place]. Family involved with care, at bedside. plan to discharge patient home - will arrange with case management for post op care as needed - follow up in OPD in 7-10 days Post-op pain 10/27/2012 12/26/2015 Overview: currently well controlled with [employer]. will start PO pain meds today 10/27. tolerating percocet, pain relatively well controlled. Hodgkin's disease with nodular sclerosis 013 12/26/2015 Overview: Oncology history (per Dr. 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 Hodgkin's disease, unspecified 02/05/2012 0 05/11/2014 Vaginal bleeding 12/26/2015 Overview: --likely from thrombocytopenia. No menses in prior 8 months. Scant amount reported on 03/29 and 03/30, now resolved --monitor bleeding by counting pads --should f/u with her [employer] provider after BMT Premature menopause 12/26/2015 Postmenopausal atrophic vaginitis 12/26/2015 Dyspareunia 12/26/2015 documented as of this encounter (statuses as of 12/12/2021) [facility] History of Past illness Narrative* Problem Noted Date Resolved Date Menorrhagia with regular cycle 03/15/2017 1 03/03/2017 Overview: Added automatically from request for surgery [id number] History of pulmonary embolism 04/25/2016 Neoplastic (malignant) [...] FOLLOW-UP 10/27/20122015 Overview: 32 yo female from [place]. Family involved with care, at bedside. plan to discharge patient home - will arrange with case management for post op care as needed - follow up in OPD in 7-10 days Post-op pain 10/27/2012 12/26/2015 Overview: currently well controlled with [employer]. will start PO pain meds today 10/27. tolerating percocet, pain relatively well controlled. Hodgkin's disease with nodular sclerosis 013 12/26/2015 Overview: Oncology history (per Dr. 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 Hodgkin's disease, unspecified 02/05/2012 0 05/11/2014 Vaginal bleeding 12/26/2015 Overview: --likely from thrombocytopenia. No menses in prior 8 months. Scant amount reported on 03/29 and 03/30, now resolved --monitor bleeding by counting pads --should f/u with her [employer] provider after BMT Premature menopause 12/26/2015 Postmenopausal atrophic vaginitis 12/26/2015 Dyspareunia 12/26/2015 documented as of this encounter (statuses as of 12/18/2021) [facility] History of Past illness Narrative* Problem Noted Date Resolved Date Menorrhagia with regular cycle 03/15/2017 1 03/03/2017 Overview: Added automatically from request for surgery [id number] History of pulmonary embolism 04/25/2016 Neoplastic (malignant) [...] FOLLOW-UP 10/27/20122015 Overview: 32 yo female from [place]. Family involved with care, at bedside. plan to discharge patient home - will arrange with case management for post op care as needed - follow up in OPD in 7-10 days Post-op pain 10/27/2012 12/26/2015 Overview: currently well controlled with [employer]. will start PO pain meds today 10/27. tolerating percocet, pain relatively well controlled. Hodgkin's disease with nodular sclerosis 013 12/26/2015 Overview: Oncology history (per Dr. 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 Hodgkin's disease, unspecified 02/05/2012 0 05/11/2014 Vaginal bleeding 12/26/2015 Overview: --likely from thrombocytopenia. No menses in prior 8 months. Scant amount reported on 03/29 and 03/30, now resolved --monitor bleeding by counting pads --should f/u with her [employer] provider after BMT Premature menopause 12/26/2015 Postmenopausal atrophic vaginitis 12/26/2015 Dyspareunia 12/26/2015 documented as of this encounter (statuses as of 12/19/2021) [facility] History of Past illness Narrative* Problem Noted Date Resolved Date Menorrhagia with regular cycle 03/15/2017 1 03/03/2017 Overview: Added automatically from request for surgery [id number] History of pulmonary embolism 04/25/2016 Neoplastic (malignant) [...] FOLLOW-UP 10/27/20122015 Overview: 32 yo female from [place]. Family involved with care, at bedside. plan to discharge patient home - will arrange with case management for post op care as needed - follow up in OPD in 7-10 days Post-op pain 10/27/2012 12/26/2015 Overview: currently well controlled with [employer]. will start PO pain meds today 10/27. tolerating percocet, pain relatively well controlled. Hodgkin's disease with nodular sclerosis 013 12/26/2015 Overview: Oncology history (per Dr. 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 Hodgkin's disease, unspecified 02/05/2012 0 05/11/2014 Vaginal bleeding 12/26/2015 Overview: --likely from thrombocytopenia. No menses in prior 8 months. Scant amount reported on 03/29 and 03/30, now resolved --monitor bleeding by counting pads --should f/u with her [employer] provider after BMT Premature menopause 12/26/2015 Postmenopausal atrophic vaginitis 12/26/2015 Dyspareunia 12/26/2015 documented as of this encounter (statuses as of 12/27/2021) [facility] History of Past illness Narrative* Problem Noted Date Resolved Date Menorrhagia with regular cycle 03/15/2017 1 03/03/2017 Overview: Added automatically from request for surgery [id number] History of pulmonary embolism 04/25/2016 Neoplastic (malignant) [...] FOLLOW-UP 10/27/20122015 Overview: 32 yo female from [place]. Family involved with care, at bedside. plan to discharge patient home - will arrange with case management for post op care as needed - follow up in OPD in 7-10 days Post-op pain 10/27/2012 12/26/2015 Overview: currently well controlled with [employer]. will start PO pain meds today 10/27. tolerating percocet, pain relatively well controlled. Hodgkin's disease with nodular sclerosis 013 12/26/2015 Overview: Oncology history (per Dr. 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 Hodgkin's disease, unspecified 02/05/2012 0 05/11/2014 Vaginal bleeding 12/26/2015 Overview: --likely from thrombocytopenia. No menses in prior 8 months. Scant amount reported on 03/29 and 03/30, now resolved --monitor bleeding by counting pads --should f/u with her [employer] provider after BMT Premature menopause 12/26/2015 Postmenopausal atrophic vaginitis 12/26/2015 Dyspareunia 12/26/2015 documented as of this encounter (statuses as of 12/31/2021) [facility] History of Past illness Narrative* Problem Noted Date Resolved Date Menorrhagia with regular cycle 03/15/2017 1 03/03/2017 Overview: Added automatically from request for surgery [id number] History of pulmonary embolism 04/25/2016 Neoplastic (malignant) [...] FOLLOW-UP 10/27/20122015 Overview: 32 yo female from [place]. Family involved with care, at bedside. plan to discharge patient home - will arrange with case management for post op care as needed - follow up in OPD in 7-10 days Post-op pain 10/27/2012 12/26/2015 Overview: currently well controlled with [employer]. will start PO pain meds today 10/27. tolerating percocet, pain relatively well controlled. Hodgkin's disease with nodular sclerosis 013 12/26/2015 Overview: Oncology history (per Dr. 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 Hodgkin's disease, unspecified 02/05/2012 0 05/11/2014 Vaginal bleeding 12/26/2015 Overview: --likely from thrombocytopenia. No menses in prior 8 months. Scant amount reported on 03/29 and 03/30, now resolved --monitor bleeding by counting pads --should f/u with her [employer] provider after BMT Premature menopause 12/26/2015 Postmenopausal atrophic vaginitis 12/26/2015 Dyspareunia 12/26/2015 documented as of this encounter (statuses as of 01/08/2022) [facility] of Past illness Narrative* Problem Noted Date Resolved Date Menorrhagia with regular cycle 03/15/2017 1 03/03/2017 Overview: Added automatically from request for surgery [id number] History of pulmonary embolism 04/25/2016 Neoplastic (malignant) [...] FOLLOW-UP 10/27/20122015 Overview: 32 yo female from [place]. Family involved with care, at bedside. plan to discharge patient home - will arrange with case management for post op care as needed - follow up in OPD in 7-10 days Post-op pain 10/27/2012 12/26/2015 Overview: currently well controlled with [employer]AN. will start PO pain meds today 10/27. tolerating percocet, pain relatively well controlled. Hodgkin's disease with nodular sclerosis 013 12/26/2015 Overview: Oncology history (per Dr. 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 Hodgkin's disease, unspecified 02/05/2012 0 05/11/2014 Vaginal bleeding 12/26/2015 Overview: --likely from thrombocytopenia. No menses in prior 8 months. Scant amount reported on 03/29 and 03/30, now resolved --monitor bleeding by counting pads --should f/u with her [employer] provider after BMT Premature menopause 12/26/2015 Postmenopausal atrophic vaginitis 12/26/2015 Dyspareunia 12/26/2015 documented as of this encounter (statuses as of 01/16/2022) [facility] of Past illness Narrative* Problem Noted Date Resolved Date Menorrhagia with regular cycle 03/15/2017 1 03/03/2017 Overview: Added automatically from request for surgery [id number] History of pulmonary embolism 04/25/2016 Neoplastic (malignant) [...] FOLLOW-UP 10/27/20122015 Overview: 32 yo female from [place]. Family involved with care, at bedside. plan to discharge patient home - will arrange with case management for post op care as needed - follow up in OPD in 7-10 days Post-op pain 10/27/2012 12/26/2015 Overview: currently well controlled with [employer]AN. will start PO pain meds today 10/27. tolerating percocet, pain relatively well controlled. Hodgkin's disease with nodular sclerosis 013 12/26/2015 Overview: Oncology history (per Dr. 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 Hodgkin's disease, unspecified 02/05/2012 0 05/11/2014 Vaginal bleeding 12/26/2015 Overview: --likely from thrombocytopenia. No menses in prior 8 months. Scant amount reported on 03/29 and 03/30, now resolved --monitor bleeding by counting pads --should f/u with her [employer] provider after BMT Premature menopause 12/26/2015 Postmenopausal atrophic vaginitis 12/26/2015 Dyspareunia 12/26/2015 documented as of this encounter (statuses as of 01/16/2022) [facility] of Past illness Narrative* Problem Noted Date Resolved Date Menorrhagia with regular cycle 03/15/2017 1 03/03/2017 Overview: Added automatically from request for surgery [id number] History of pulmonary embolism 04/25/2016 Neoplastic (malignant) [...] FOLLOW-UP 10/27/20122015 Overview: 32 yo female from [place]. Family involved with care, at bedside. plan to discharge patient home - will arrange with case management for post op care as needed - follow up in OPD in 7-10 days Post-op pain 10/27/2012 12/26/2015 Overview: currently well controlled with [employer]AN. will start PO pain meds today 10/27. tolerating percocet, pain relatively well controlled. Hodgkin's disease with nodular sclerosis 013 12/26/2015 Overview: Oncology history (per Dr. 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 Hodgkin's disease, unspecified 02/05/2012 0 05/11/2014 Vaginal bleeding 12/26/2015 Overview: --likely from thrombocytopenia. No menses in prior 8 months. Scant amount reported on 03/29 and 03/30, now resolved --monitor bleeding by counting pads --should f/u with her [employer] provider after BMT Premature menopause 12/26/2015 Postmenopausal atrophic vaginitis 12/26/2015 Dyspareunia 12/26/2015 documented as of this encounter (statuses as of 01/17/2022) [facility] of Past illness Narrative* Problem Noted Date Resolved Date Menorrhagia with regular cycle 03/15/2017 1 03/03/2017 Overview: Added automatically from request for surgery [id number] History of pulmonary embolism 04/25/2016 Neoplastic (malignant) [...] FOLLOW-UP 10/27/20122015 Overview: 32 yo female from [place]. Family involved with care, at bedside. plan to discharge patient home - will arrange with case management for post op care as needed - follow up in OPD in 7-10 days Post-op pain 10/27/2012 12/26/2015 Overview: currently well controlled with [employer]. will start PO pain meds today 10/27. tolerating percocet, pain relatively well controlled. Hodgkin's disease with nodular sclerosis 013 12/26/2015 Overview: Oncology history (per Dr. 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 Hodgkin's disease, unspecified 02/05/2012 0 05/11/2014 Vaginal bleeding 12/26/2015 Overview: --likely from thrombocytopenia. No menses in prior 8 months. Scant amount reported on 03/29 and 03/30, now resolved --monitor bleeding by counting pads --should f/u with her [employer] provider after BMT Premature menopause 12/26/2015 Postmenopausal atrophic vaginitis 12/26/2015 Dyspareunia 12/26/2015 documented as of this encounter (statuses as of 01/18/2022) [facility]01-[facility]-2018 History of Past illness Narrative* Problem Noted Date Resolved Date Menorrhagia with regular cycle 03/15/2017 1 03/03/2017 Overview: Added automatically from request for surgery [id number] History of pulmonary embolism 04/25/2016 Neoplastic (malignant) [...] FOLLOW-UP 10/27/20122015 Overview: 32 yo female from [place], [place]. Family involved with care, at bedside. plan to discharge patient home - will arrange with case management for post op care as needed - follow up in OPD in 7-10 days Post-op pain 10/27/2012 12/26/2015 Overview: currently well controlled with [employer]. will start PO pain meds today 10/27. tolerating percocet, pain relatively well controlled. Hodgkin's disease with nodular sclerosis 013 12/26/2015 Overview: Oncology history (per Dr. 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 Hodgkin's disease, unspecified 02/05/2012 0 05/11/2014 Vaginal bleeding 12/26/2015 Overview: --likely from thrombocytopenia. No menses in prior 8 months. Scant amount reported on 03/29 and 03/30, now resolved --monitor bleeding by counting pads --should f/u with her [employer] [facility] provider after BMT Premature menopause 12/26/2015 Postmenopausal atrophic vaginitis 12/26/2015 Dyspareunia 12/26/2015 documented as of this encounter (statuses as of 01/20/2022) [facility] History of Past illness Narrative* Problem Noted Date Resolved Date Menorrhagia with regular cycle 03/15/2017 1 03/03/2017 Overview: Added automatically from request for surgery [id number] History of pulmonary embolism 04/25/2016 Neoplastic (malignant) [...] FOLLOW-UP 10/27/20122015 Overview: 32 yo female from [place], [place]. Family involved with care, at bedside. plan to discharge patient home - will arrange with case management for post op care as needed - follow up in OPD in 7-10 days Post-op pain 10/27/2012 12/26/2015 Overview: currently well controlled with [employer]OM[employer]. will start PO pain meds today 10/27. tolerating percocet, pain relatively well controlled. Hodgkin's disease with nodular sclerosis 013 12/26/2015 Overview: Oncology history (per Dr. 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 Hodgkin's disease, unspecified 02/05/2012 0 05/11/2014 Vaginal bleeding 12/26/2015 Overview: --likely from thrombocytopenia. No menses in prior 8 months. Scant amount reported on 03/29 and 03/30, now resolved --monitor bleeding by counting pads --should f/u with her [employer] provider after BMT Premature menopause 12/26/2015 Postmenopausal atrophic vaginitis 12/26/2015 Dyspareunia 12/26/2015 documented as of this encounter (statuses as of 01/22/2022) [facility] History of Past illness Narrative* Problem Noted Date Resolved Date Menorrhagia with regular cycle 03/15/2017 1 03/03/2017 Overview: Added automatically from request for surgery [id number] History of pulmonary embolism 04/25/2016 Neoplastic (malignant) [...] FOLLOW-UP 10/27/20122015 Overview: 32 yo female from [place]. Family involved with care, at bedside. plan to discharge patient home - will arrange with case management for post op care as needed - follow up in OPD in 7-10 days Post-op pain 10/27/2012 12/26/2015 Overview: currently well controlled with [employer]AN. will start PO pain meds today 10/27. tolerating percocet, pain relatively well controlled. Hodgkin's disease with nodular sclerosis 013 12/26/2015 Overview: Oncology history (per Dr. 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 Hodgkin's disease, unspecified 02/05/2012 0 05/11/2014 Vaginal bleeding 12/26/2015 Overview: --likely from thrombocytopenia. No menses in prior 8 months. Scant amount reported on 03/29 and 03/30, now resolved --monitor bleeding by counting pads --should f/u with her [employer] provider after BMT Premature menopause 12/26/2015 Postmenopausal atrophic vaginitis 12/26/2015 Dyspareunia 12/26/2015 documented as of this encounter (statuses as of 01/25/2022) [facility] History of Past illness Narrative* Problem Noted Date Resolved Date Menorrhagia with regular cycle 03/15/2017 1 03/03/2017 Overview: Added automatically from request for surgery [id number] History of pulmonary embolism 04/25/2016 Neoplastic (malignant) [...] FOLLOW-UP 10/27/20122015 Overview: 32 yo female from [place]. Family involved with care, at bedside. plan to discharge patient home - will arrange with case management for post op care as needed - follow up in OPD in 7-10 days Post-op pain 10/27/2012 12/26/2015 Overview: currently well controlled with [employer]. will start PO pain meds today 10/27. tolerating percocet, pain relatively well controlled. Hodgkin's disease with nodular sclerosis 013 12/26/2015 Overview: Oncology history (per Dr. 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 Hodgkin's disease, unspecified 02/05/2012 0 05/11/2014 Vaginal bleeding 12/26/2015 Overview: --likely from thrombocytopenia. No menses in prior 8 months. Scant amount reported on 03/29 and 03/30, now resolved --monitor bleeding by counting pads --should f/u with her [employer] provider after BMT Premature menopause 12/26/2015 Postmenopausal atrophic vaginitis 12/26/2015 Dyspareunia 12/26/2015 documented as of this encounter (statuses as of 02/11/2022) [facility] History of Past illness Narrative* Problem Noted Date Resolved Date Menorrhagia with regular cycle 03/15/2017 1 03/03/2017 Overview: Added automatically from request for surgery [id number] History of pulmonary embolism 04/25/2016 Neoplastic (malignant) [...] FOLLOW-UP 10/27/20122015 Overview: 32 yo female from [place]. Family involved with care, at bedside. plan to discharge patient home - will arrange with case management for post op care as needed - follow up in OPD in 7-10 days Post-op pain 10/27/2012 12/26/2015 Overview: currently well controlled with [employer]. will start PO pain meds today 10/27. tolerating percocet, pain relatively well controlled. Hodgkin's disease with nodular sclerosis 013 12/26/2015 Overview: Oncology history (per Dr. 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 Hodgkin's disease, unspecified 02/05/2012 0 05/11/2014 Vaginal bleeding 12/26/2015 Overview: --likely from thrombocytopenia. No menses in prior 8 months. Scant amount reported on 03/29 and 03/30, now resolved --monitor bleeding by counting pads --should f/u with her [employer] provider after BMT Premature menopause 12/26/2015 Postmenopausal atrophic vaginitis 12/26/2015 Dyspareunia 12/26/2015 documented as of this encounter (statuses as of 02/21/2022) [facility] History of Past illness Narrative* Problem Noted Date Resolved Date Menorrhagia with regular cycle 03/15/2017 1 03/03/2017 Overview: Added automatically from request for surgery [id number] History of pulmonary embolism 04/25/2016 Neoplastic (malignant) [...] FOLLOW-UP 10/27/20122015 Overview: 32 yo female from [place]. Family involved with care, at bedside. plan to discharge patient home - will arrange with case management for post op care as needed - follow up in OPD in 7-10 days Post-op pain 10/27/2012 12/26/2015 Overview: currently well controlled with [employer]. will start PO pain meds today 10/27. tolerating percocet, pain relatively well controlled. Hodgkin's disease with nodular sclerosis 013 12/26/2015 Overview: Oncology history (per Dr. 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 Hodgkin's disease, unspecified 02/05/2012 0 05/11/2014 Vaginal bleeding 12/26/2015 Overview: --likely from thrombocytopenia. No menses in prior 8 months. Scant amount reported on 03/29 and 03/30, now resolved --monitor bleeding by counting pads --should f/u with her [employer] provider after BMT Premature menopause 12/26/2015 Postmenopausal atrophic vaginitis 12/26/2015 Dyspareunia 12/26/2015 documented as of this encounter (statuses as of 03/06/2022) [facility] History of Past illness Narrative* Problem Noted Date Resolved Date Menorrhagia with regular cycle 03/15/2017 1 03/03/2017 Overview: Added automatically from request for surgery [id number] History of pulmonary embolism 04/25/2016 Neoplastic (malignant) [...] FOLLOW-UP 10/27/20122015 Overview: 32 yo female from [place]. Family involved with care, at bedside. plan to discharge patient home - will arrange with case management for post op care as needed - follow up in OPD in 7-10 days Post-op pain 10/27/2012 12/26/2015 Overview: currently well controlled with [employer]. will start PO pain meds today 10/27. tolerating percocet, pain relatively well controlled. Hodgkin's disease with nodular sclerosis 013 12/26/2015 Overview: Oncology history (per Dr. 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 Hodgkin's disease, unspecified 02/05/2012 0 05/11/2014 Vaginal bleeding 12/26/2015 Overview: --likely from thrombocytopenia. No menses in prior 8 months. Scant amount reported on 03/29 and 03/30, now resolved --monitor bleeding by counting pads --should f/u with her [employer] provider after BMT Premature menopause 12/26/2015 Postmenopausal atrophic vaginitis 12/26/2015 Dyspareunia 12/26/2015 documented as of this encounter (statuses as of 03/07/2022) [facility] History of Past illness Narrative* Problem Noted Date Resolved Date Menorrhagia with regular cycle 03/15/2017 1 03/03/2017 Overview: Added automatically from request for surgery [id number] History of pulmonary embolism 04/25/2016 Neoplastic (malignant) [...] FOLLOW-UP 10/27/20122015 Overview: 32 yo female from [place]. Family involved with care, at bedside. plan to discharge patient home - will arrange with case management for post op care as needed - follow up in OPD in 7-10 days Post-op pain 10/27/2012 12/26/2015 Overview: currently well controlled with [employer]. will start PO pain meds today 10/27. tolerating percocet, pain relatively well controlled. Hodgkin's disease with nodular sclerosis 013 12/26/2015 Overview: Oncology history (per Dr. 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 Hodgkin's disease, unspecified 02/05/2012 0 05/11/2014 Vaginal bleeding 12/26/2015 Overview: --likely from thrombocytopenia. No menses in prior 8 months. Scant amount reported on 03/29 and 03/30, now resolved --monitor bleeding by counting pads --should f/u with her [employer] provider after BMT Premature menopause 12/26/2015 Postmenopausal atrophic vaginitis 12/26/2015 Dyspareunia 12/26/2015 documented as of this encounter (statuses as of 03/07/2022) [facility] History of Past illness Narrative* Problem Noted Date Resolved Date Menorrhagia with regular cycle 03/15/2017 1 03/03/2017 Overview: Added automatically from request for surgery [id number] History of pulmonary embolism 04/25/2016 Neoplastic (malignant) [...] FOLLOW-UP 10/27/20122015 Overview: 32 yo female from [place]. Family involved with care, at bedside. plan to discharge patient home - will arrange with case management for post op care as needed - follow up in OPD in 7-10 days Post-op pain 10/27/2012 12/26/2015 Overview: currently well controlled with [employer]. will start PO pain meds today 10/27. tolerating percocet, pain relatively well controlled. Hodgkin's disease with nodular sclerosis 013 12/26/2015 Overview: Oncology history (per Dr. 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 Hodgkin's disease, unspecified 02/05/2012 0 05/11/2014 Vaginal bleeding 12/26/2015 Overview: --likely from thrombocytopenia. No menses in prior 8 months. Scant amount reported on 03/29 and 03/30, now resolved --monitor bleeding by counting pads --should f/u with her [employer] provider after BMT Premature menopause 12/26/2015 Postmenopausal atrophic vaginitis 12/26/2015 Dyspareunia 12/26/2015 documented as of this encounter (statuses as of 03/15/2022) [facility] History of Past illness Narrative* Problem Noted Date Resolved Date Menorrhagia with regular cycle 03/15/2017 1 03/03/2017 Overview: Added automatically from request for surgery [id number] History of pulmonary embolism 04/25/2016 Neoplastic (malignant) [...] FOLLOW-UP 10/27/20122015 Overview: 32 yo female from [place]. Family involved with care, at bedside. plan to discharge patient home - will arrange with case management for post op care as needed - follow up in OPD in 7-10 days Post-op pain 10/27/2012 12/26/2015 Overview: currently well controlled with [employer]. will start PO pain meds today 10/27. tolerating percocet, pain relatively well controlled. Hodgkin's disease with nodular sclerosis 013 12/26/2015 Overview: Oncology history (per Dr. 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 Hodgkin's disease, unspecified 02/05/2012 0 05/11/2014 Vaginal bleeding 12/26/2015 Overview: --likely from thrombocytopenia. No menses in prior 8 months. Scant amount reported on 03/29 and 03/30, now resolved --monitor bleeding by counting pads --should f/u with her [employer] provider after BMT Premature menopause 12/26/2015 Postmenopausal atrophic vaginitis 12/26/2015 Dyspareunia 12/26/2015 documented as of this encounter (statuses as of 03/15/2022) [facility] History of Past illness Narrative* Problem Noted Date Resolved Date Menorrhagia with regular cycle 03/15/2017 1 03/03/2017 Overview: Added automatically from request for surgery [id number] History of pulmonary embolism 04/25/2016 Neoplastic (malignant) [...] FOLLOW-UP 10/27/20122015 Overview: 32 yo female from [place]. Family involved with care, at bedside. plan to discharge patient home - will arrange with case management for post op care as needed - follow up in OPD in 7-10 days Post-op pain 10/27/2012 12/26/2015 Overview: currently well controlled with [employer]. will start PO pain meds today 10/27. tolerating percocet, pain relatively well controlled. Hodgkin's disease with nodular sclerosis 013 12/26/2015 Overview: Oncology history (per Dr. 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 Hodgkin's disease, unspecified 02/05/2012 0 05/11/2014 Vaginal bleeding 12/26/2015 Overview: --likely from thrombocytopenia. No menses in prior 8 months. Scant amount reported on 03/29 and 03/30, now resolved --monitor bleeding by counting pads --should f/u with her [employer] provider after BMT Premature menopause 12/26/2015 Postmenopausal atrophic vaginitis 12/26/2015 Dyspareunia 12/26/2015 documented as of this encounter (statuses as of 03/19/2022) [facility] of Past illness Narrative* Problem Noted Date Resolved Date Menorrhagia with regular cycle 03/15/2017 1 03/03/2017 Overview: Added automatically from request for surgery [id number] History of pulmonary embolism 04/25/2016 Neoplastic (malignant) [...] without radiation 07/06/201308/2015 Abnormal finding on imaging 07/06/2013 110 08/2015 Elevated sed rate 07/06/2013 12/26/2015 Hyperpigmentation of [...] FOLLOW-UP 10/27/20122015 Overview: 32 yo female from [place]. Family involved with care, at bedside. plan to discharge patient home - will arrange with case management for post op care as needed - follow up in OPD in 7-10 days Post-op pain 10/27/2012 12/26/2015 Overview: currently well controlled with [employer]AN. will start PO pain meds today 10/27. tolerating percocet, pain relatively well controlled. Hodgkin's disease with nodular sclerosis 013 12/26/2015 Overview: Oncology history (per Dr. 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 Hodgkin's disease, unspecified 02/05/2012 0 05/11/2014 Vaginal bleeding 12/26/2015 Overview: --likely from thrombocytopenia. No menses in prior 8 months. Scant amount reported on 03/29 and 03/30, now resolved --monitor bleeding by counting pads --should f/u with her [employer] provider after BMT Premature menopause 12/26/2015 Postmenopausal atrophic vaginitis 12/26/2015 Dyspareunia 12/26/2015 documented as of this encounter (statuses as of 03/22/2022) [facility] of Past illness Narrative* Problem Noted Date Resolved Date Menorrhagia with regular cycle 03/15/2017 1 03/03/2017 Overview: Added automatically from request for surgery [id number] History of pulmonary embolism 04/25/2016 Neoplastic (malignant) [...] 06/03/2014 12/26/2015 Acute respiratory failure with hypoxemia 03/24/2 015 12/26/2015 Overview: Increased O2 requirement overnight [...] FOLLOW-UP 10/27/20122015 Overview: 32 yo female from [place]. Family involved with care, at bedside. plan to discharge patient home - will arrange with case management for post op care as needed - follow up in OPD in 7-10 days Post-op pain 10/27/2012 12/26/2015 Overview: currently well controlled with [employer]AN. will start PO pain meds today 10/27. tolerating percocet, pain relatively well controlled. Hodgkin's disease with nodular sclerosis 013 12/26/2015 Overview: Oncology history (per Dr. 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 Hodgkin's disease, unspecified 02/05/2012 0 05/11/2014 Vaginal bleeding 12/26/2015 Overview: --likely from thrombocytopenia. No menses in prior 8 months. Scant amount reported on 03/29 and 03/30, now resolved --monitor bleeding by counting pads --should f/u with her [employer] provider after BMT Premature menopause 12/26/2015 Postmenopausal atrophic vaginitis 12/26/2015 Dyspareunia 12/26/2015 documented as of this encounter (statuses as of 03/23/2022) [facility] of Past illness Narrative* Problem Noted Date Resolved Date Menorrhagia with regular cycle 03/15/2017 1 03/03/2017 Overview: Added automatically from request for surgery [id number] History of pulmonary embolism 04/25/2016 Neoplastic (malignant) [...] FOLLOW-UP 10/27/20122015 Overview: 32 yo female from [place]. Family involved with care, at bedside. plan to discharge patient home - will arrange with case management for post op care as needed - follow up in OPD in 7-10 days Post-op pain 10/27/2012 12/26/2015 Overview: currently well controlled with [employer]OMAN. will start PO pain meds today 10/27. tolerating percocet, pain relatively well controlled. Hodgkin's disease with nodular sclerosis 013 12/26/2015 Overview: Oncology history (per Dr. 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 Hodgkin's disease, unspecified 02/05/2012 0 05/11/2014 Vaginal bleeding 12/26/2015 Overview: --likely from thrombocytopenia. No menses in prior 8 months. Scant amount reported on 03/29 and 03/30, now resolved --monitor bleeding by counting pads --should f/u with her [employer] provider after BMT Premature menopause 12/26/2015 Postmenopausal atrophic vaginitis 12/26/2015 Dyspareunia 12/26/2015 documented as of this encounter (statuses as of 03/24/2022) [facility] of Past illness Narrative* Problem Noted Date Resolved Date Menorrhagia with regular cycle 03/15/2017 1 03/03/2017 Overview: Added automatically from request for surgery [id number] History of pulmonary embolism 04/25/2016 Neoplastic (malignant) [...] FOLLOW-UP 10/27/20122015 Overview: 32 yo female from [place]. Family involved with care, at bedside. plan to discharge patient home - will arrange with case management for post op care as needed - follow up in OPD in 7-10 days Post-op pain 10/27/2012 12/26/2015 Overview: currently well controlled with [employer]OMAN. will start PO pain meds today 10/27. tolerating percocet, pain relatively well controlled. Hodgkin's disease with nodular sclerosis 013 12/26/2015 Overview: Oncology history (per Dr. 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 Hodgkin's disease, unspecified 02/05/2012 0 05/11/2014 Vaginal bleeding 12/26/2015 Overview: --likely from thrombocytopenia. No menses in prior 8 months. Scant amount reported on 03/29 and 03/30, now resolved --monitor bleeding by counting pads --should f/u with her [employer] provider after BMT Premature menopause 12/26/2015 Postmenopausal atrophic vaginitis 12/26/2015 Dyspareunia 12/26/2015 documented as of this encounter (statuses as of 03/26/2022) [facility]01-[facility]-2018 History of Past illness Narrative* Problem Noted Date Resolved Date Menorrhagia with regular cycle 03/15/2017 1 03/03/2017 Overview: Added automatically from request for surgery [id number] History of pulmonary embolism 04/25/2016 Neoplastic (malignant) [...] FOLLOW-UP 10/27/20122015 Overview: 32 yo female from [place], [place]. Family involved with care, at bedside. plan to discharge patient home - will arrange with case management for post op care as needed - follow up in OPD in 7-10 days Post-op pain 10/27/2012 12/26/2015 Overview: currently well controlled with [employer]. will start PO pain meds today 10/27. tolerating percocet, pain relatively well controlled. Hodgkin's disease with nodular sclerosis 013 12/26/2015 Overview: Oncology history (per Dr. 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 Hodgkin's disease, unspecified 02/05/2012 0 05/11/2014 Vaginal bleeding 12/26/2015 Overview: --likely from thrombocytopenia. No menses in prior 8 months. Scant amount reported on 03/29 and 03/30, now resolved --monitor bleeding by counting pads --should f/u with her [employer] provider after BMT Premature menopause 12/26/2015 Postmenopausal atrophic vaginitis 12/26/2015 Dyspareunia 12/26/2015 documented as of this encounter (statuses as of 03/30/2022) [facility] History of Past illness Narrative* Problem Noted Date Resolved Date Menorrhagia with regular cycle 03/15/2017 1 03/03/2017 Overview: Added automatically from request for surgery [id number] History of pulmonary embolism 04/25/2016 Neoplastic (malignant) [...] FOLLOW-UP 10/27/20122015 Overview: 32 yo female from [place], [place]. Family involved with care, at bedside. plan to discharge patient home - will arrange with case management for post op care as needed - follow up in OPD in 7-10 days Post-op pain 10/27/2012 12/26/2015 Overview: currently well controlled with [employer]. will start PO pain meds today 10/27. tolerating percocet, pain relatively well controlled. Hodgkin's disease with nodular sclerosis 013 12/26/2015 Overview: Oncology history (per Dr. 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 Hodgkin's disease, unspecified 02/05/2012 0 05/11/2014 Vaginal bleeding 12/26/2015 Overview: --likely from thrombocytopenia. No menses in prior 8 months. Scant amount reported on 03/29 and 03/30, now resolved --monitor bleeding by counting pads --should f/u with her [employer] provider after BMT Premature menopause 12/26/2015 Postmenopausal atrophic vaginitis 12/26/2015 Dyspareunia 12/26/2015 documented as of this encounter (statuses as of 04/01/2022) [facility] History of Past illness Narrative* Problem Noted Date Resolved Date Menorrhagia with regular cycle 03/15/2017 1 03/03/2017 Overview: Added automatically from request for surgery [id number] History of pulmonary embolism 04/25/2016 Neoplastic (malignant) [...] FOLLOW-UP 10/27/20122015 Overview: 32 yo female from [place]. Family involved with care, at bedside. plan to discharge patient home - will arrange with case management for post op care as needed - follow up in OPD in 7-10 days Post-op pain 10/27/2012 12/26/2015 Overview: currently well controlled with [employer]. will start PO pain meds today 10/27. tolerating percocet, pain relatively well controlled. Hodgkin's disease with nodular sclerosis 013 12/26/2015 Overview: Oncology history (per Dr. 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 Hodgkin's disease, unspecified 02/05/2012 0 05/11/2014 Vaginal bleeding 12/26/2015 Overview: --likely from thrombocytopenia. No menses in prior 8 months. Scant amount reported on 03/29 and 03/30, now resolved --monitor bleeding by counting pads --should f/u with her [employer] provider after BMT Premature menopause 12/26/2015 Postmenopausal atrophic vaginitis 12/26/2015 Dyspareunia 12/26/2015 documented as of this encounter (statuses as of 04/10/2022) [facility] History of Past illness Narrative* Problem Noted Date Resolved Date Menorrhagia with regular cycle 03/15/2017 1 03/03/2017 Overview: Added automatically from request for surgery [id number] History of pulmonary embolism 04/25/2016 Neoplastic (malignant) [...] FOLLOW-UP 10/27/20122015 Overview: 32 yo female from [place]. Family involved with care, at bedside. plan to discharge patient home - will arrange with case management for post op care as needed - follow up in OPD in 7-10 days Post-op pain 10/27/2012 12/26/2015 Overview: currently well controlled with [employer]. will start PO pain meds today 10/27. tolerating percocet, pain relatively well controlled. Hodgkin's disease with nodular sclerosis 013 12/26/2015 Overview: Oncology history (per Dr. 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 Hodgkin's disease, unspecified 02/05/2012 0 05/11/2014 Vaginal bleeding 12/26/2015 Overview: --likely from thrombocytopenia. No menses in prior 8 months. Scant amount reported on 03/29 and 03/30, now resolved --monitor bleeding by counting pads --should f/u with her [employer] provider after BMT Premature menopause 12/26/2015 Postmenopausal atrophic vaginitis 12/26/2015 Dyspareunia 12/26/2015 documented as of this encounter (statuses as of 04/16/2022) [facility] History of Past illness Narrative* Problem Noted Date Resolved Date Menorrhagia with regular cycle 03/15/2017 1 03/03/2017 Overview: Added automatically from request for surgery [id number] History of pulmonary embolism 04/25/2016 Neoplastic (malignant) [...] FOLLOW-UP 10/27/20122015 Overview: 32 yo female from [place]. Family involved with care, at bedside. plan to discharge patient home - will arrange with case management for post op care as needed - follow up in OPD in 7-10 days Post-op pain 10/27/2012 12/26/2015 Overview: currently well controlled with [employer]. will start PO pain meds today 10/27. tolerating percocet, pain relatively well controlled. Hodgkin's disease with nodular sclerosis 013 12/26/2015 Overview: Oncology history (per Dr. 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 Hodgkin's disease, unspecified 02/05/2012 0 05/11/2014 Vaginal bleeding 12/26/2015 Overview: --likely from thrombocytopenia. No menses in prior 8 months. Scant amount reported on 03/29 and 03/30, now resolved --monitor bleeding by counting pads --should f/u with her [employer] provider after BMT Premature menopause 12/26/2015 Postmenopausal atrophic vaginitis 12/26/2015 Dyspareunia 12/26/2015 documented as of this encounter (statuses as of 04/17/2022) [facility] History of Past illness Narrative* Problem Noted Date Resolved Date Menorrhagia with regular cycle 03/15/2017 1 03/03/2017 Overview: Added automatically from request for surgery [id number] History of pulmonary embolism 04/25/2016 Neoplastic (malignant) [...] FOLLOW-UP 10/27/20122015 Overview: 32 yo female from [place]. Family involved with care, at bedside. plan to discharge patient home - will arrange with case management for post op care as needed - follow up in OPD in 7-10 days Post-op pain 10/27/2012 12/26/2015 Overview: currently well controlled with [employer]. will start PO pain meds today 10/27. tolerating percocet, pain relatively well controlled. Hodgkin's disease with nodular sclerosis 013 12/26/2015 Overview: Oncology history (per Dr. 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 Hodgkin's disease, unspecified 02/05/2012 0 05/11/2014 Vaginal bleeding 12/26/2015 Overview: --likely from thrombocytopenia. No menses in prior 8 months. Scant amount reported on 03/29 and 03/30, now resolved --monitor bleeding by counting pads --should f/u with her [employer] provider after BMT Premature menopause 12/26/2015 Postmenopausal atrophic vaginitis 12/26/2015 Dyspareunia 12/26/2015 documented as of this encounter (statuses as of 04/20/2022) [facility] History of Past illness Narrative* Problem Noted Date Resolved Date Menorrhagia with regular cycle 03/15/2017 1 03/03/2017 Overview: Added automatically from request for surgery [id number] History of pulmonary embolism 04/25/2016 Neoplastic (malignant) [...] FOLLOW-UP 10/27/20122015 Overview: 32 yo female from [place]. Family involved with care, at bedside. plan to discharge patient home - will arrange with case management for post op care as needed - follow up in OPD in 7-10 days Post-op pain 10/27/2012 12/26/2015 Overview: currently well controlled with [employer]. will start PO pain meds today 10/27. tolerating percocet, pain relatively well controlled. Hodgkin's disease with nodular sclerosis 013 12/26/2015 Overview: Oncology history (per Dr. 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 Hodgkin's disease, unspecified 02/05/2012 0 05/11/2014 Vaginal bleeding 12/26/2015 Overview: --likely from thrombocytopenia. No menses in prior 8 months. Scant amount reported on 03/29 and 03/30, now resolved --monitor bleeding by counting pads --should f/u with her [employer] provider after BMT Premature menopause 12/26/2015 Postmenopausal atrophic vaginitis 12/26/2015 Dyspareunia 12/26/2015 documented as of this encounter (statuses as of 04/23/2022) [facility] History of Past illness Narrative* Problem Noted Date Resolved Date Menorrhagia with regular cycle 03/15/2017 1 03/03/2017 Overview: Added automatically from request for surgery [id number] History of pulmonary embolism 04/25/2016 Neoplastic (malignant) [...] FOLLOW-UP 10/27/20122015 Overview: 32 yo female from [place]. Family involved with care, at bedside. plan to discharge patient home - will arrange with case management for post op care as needed - follow up in OPD in 7-10 days Post-op pain 10/27/2012 12/26/2015 Overview: currently well controlled with [employer]. will start PO pain meds today 10/27. tolerating percocet, pain relatively well controlled. Hodgkin's disease with nodular sclerosis 013 12/26/2015 Overview: Oncology history (per Dr. 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 Hodgkin's disease, unspecified 02/05/2012 0 05/11/2014 Vaginal bleeding 12/26/2015 Overview: --likely from thrombocytopenia. No menses in prior 8 months. Scant amount reported on 03/29 and 03/30, now resolved --monitor bleeding by counting pads --should f/u with her [employer] provider after BMT Premature menopause 12/26/2015 Postmenopausal atrophic vaginitis 12/26/2015 Dyspareunia 12/26/2015 documented as of this encounter (statuses as of 04/23/2022) [facility] History of Past illness Narrative* Problem Noted Date Resolved Date Menorrhagia with regular cycle 03/15/2017 1 03/03/2017 Overview: Added automatically from request for surgery [id number] History of pulmonary embolism 04/25/2016 Neoplastic (malignant) [...] FOLLOW-UP 10/27/20122015 Overview: 32 yo female from [place]. Family involved with care, at bedside. plan to discharge patient home - will arrange with case management for post op care as needed - follow up in OPD in 7-10 days Post-op pain 10/27/2012 12/26/2015 Overview: currently well controlled with [employer]. will start PO pain meds today 10/27. tolerating percocet, pain relatively well controlled. Hodgkin's disease with nodular sclerosis 013 12/26/2015 Overview: Oncology history (per Dr. 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 Hodgkin's disease, unspecified 02/05/2012 0 05/11/2014 Vaginal bleeding 12/26/2015 Overview: --likely from thrombocytopenia. No menses in prior 8 months. Scant amount reported on 03/29 and 03/30, now resolved --monitor bleeding by counting pads --should f/u with her [employer] provider after BMT Premature menopause 12/26/2015 Postmenopausal atrophic vaginitis 12/26/2015 Dyspareunia 12/26/2015 documented as of this encounter (statuses as of 04/25/2022) [facility] History of Past illness Narrative* Problem Noted Date Resolved Date Menorrhagia with regular cycle 03/15/2017 1 03/03/2017 Overview: Added automatically from request for surgery [id number] History of pulmonary embolism 04/25/2016 Neoplastic (malignant) [...] FOLLOW-UP 10/27/20122015 Overview: 32 yo female from [place]. Family involved with care, at bedside. plan to discharge patient home - will arrange with case management for post op care as needed - follow up in OPD in 7-10 days Post-op pain 10/27/2012 12/26/2015 Overview: currently well controlled with [employer]. will start PO pain meds today 10/27. tolerating percocet, pain relatively well controlled. Hodgkin's disease with nodular sclerosis 013 12/26/2015 Overview: Oncology history (per Dr. 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 Hodgkin's disease, unspecified 02/05/2012 0 05/11/2014 Vaginal bleeding 12/26/2015 Overview: --likely from thrombocytopenia. No menses in prior 8 months. Scant amount reported on 03/29 and 03/30, now resolved --monitor bleeding by counting pads --should f/u with her [employer] provider after BMT Premature menopause 12/26/2015 Postmenopausal atrophic vaginitis 12/26/2015 Dyspareunia 12/26/2015 documented as of this encounter (statuses as of 05/01/2022) [facility] History of Past illness Narrative* Problem Noted Date Resolved Date Menorrhagia with regular cycle 03/15/2017 1 03/03/2017 Overview: Added automatically from request for surgery [id number] History of pulmonary embolism 04/25/2016 Neoplastic (malignant) [...] FOLLOW-UP 10/27/20122015 Overview: 32 yo female from [place]. Family involved with care, at bedside. plan to discharge patient home - will arrange with case management for post op care as needed - follow up in OPD in 7-10 days Post-op pain 10/27/2012 12/26/2015 Overview: currently well controlled with [employer]. will start PO pain meds today 10/27. tolerating percocet, pain relatively well controlled. Hodgkin's disease with nodular sclerosis 013 12/26/2015 Overview: Oncology history (per Dr. 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 Hodgkin's disease, unspecified 02/05/2012 0 05/11/2014 Vaginal bleeding 12/26/2015 Overview: --likely from thrombocytopenia. No menses in prior 8 months. Scant amount reported on 03/29 and 03/30, now resolved --monitor bleeding by counting pads --should f/u with her [employer] provider after BMT Premature menopause 12/26/2015 Postmenopausal atrophic vaginitis 12/26/2015 Dyspareunia 12/26/2015 documented as of this encounter (statuses as of 05/15/2022) [facility] of Past illness Narrative* Problem Noted Date Resolved Date Menorrhagia with regular cycle 03/15/2017 1 03/03/2017 Overview: Added automatically from request for surgery [id number] History of pulmonary embolism 04/25/2016 Neoplastic (malignant) [...] FOLLOW-UP 10/27/20122015 Overview: 32 yo female from [place]. Family involved with care, at bedside. plan to discharge patient home - will arrange with case management for post op care as needed - follow up in OPD in 7-10 days Post-op pain 10/27/2012 12/26/2015 Overview: currently well controlled with [employer]. will start PO pain meds today 10/27. tolerating percocet, pain relatively well controlled. Hodgkin's disease with nodular sclerosis 013 12/26/2015 Overview: Oncology history (per Dr. 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 Hodgkin's disease, unspecified 02/05/2012 0 05/11/2014 Vaginal bleeding 12/26/2015 Overview: --likely from thrombocytopenia. No menses in prior 8 months. Scant amount reported on 03/29 and 03/30, now resolved --monitor bleeding by counting pads --should f/u with her [employer] provider after BMT Premature menopause 12/26/2015 Postmenopausal atrophic vaginitis 12/26/2015 Dyspareunia 12/26/2015 documented as of this encounter (statuses as of 05/21/2022) [facility] of Past illness Narrative* Problem Noted Date Resolved Date Menorrhagia with regular cycle 03/15/2017 1 03/03/2017 Overview: Added automatically from request for surgery [id number] History of pulmonary embolism 04/25/2016 Neoplastic (malignant) [...] FOLLOW-UP 10/27/20122015 Overview: 32 yo female from [place]. Family involved with care, at bedside. plan to discharge patient home - will arrange with case management for post op care as needed - follow up in OPD in 7-10 days Post-op pain 10/27/2012 12/26/2015 Overview: currently well controlled with [employer]. will start PO pain meds today 10/27. tolerating percocet, pain relatively well controlled. Hodgkin's disease with nodular sclerosis 013 12/26/2015 Overview: Oncology history (per Dr. 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 Hodgkin's disease, unspecified 02/05/2012 0 05/11/2014 Vaginal bleeding 12/26/2015 Overview: --likely from thrombocytopenia. No menses in prior 8 months. Scant amount reported on 03/29 and 03/30, now resolved --monitor bleeding by counting pads --should f/u with her [employer] provider after BMT Premature menopause 12/26/2015 Postmenopausal atrophic vaginitis 12/26/2015 Dyspareunia 12/26/2015 documented as of this encounter (statuses as of 05/21/2022) [facility] of Past illness Narrative* Problem Noted Date Resolved Date Menorrhagia with regular cycle 03/15/2017 1 03/03/2017 Overview: Added automatically from request for surgery [id number] History of pulmonary embolism 04/25/2016 Neoplastic (malignant) [...] FOLLOW-UP 10/27/20122015 Overview: 32 yo female from [place]. Family involved with care, at bedside. plan to discharge patient home - will arrange with case management for post op care as needed - follow up in OPD in 7-10 days Post-op pain 10/27/2012 12/26/2015 Overview: currently well controlled with [employer]AN. will start PO pain meds today 10/27. tolerating percocet, pain relatively well controlled. Hodgkin's disease with nodular sclerosis 013 12/26/2015 Overview: Oncology history (per Dr. 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 Hodgkin's disease, unspecified 02/05/2012 0 05/11/2014 Vaginal bleeding 12/26/2015 Overview: --likely from thrombocytopenia. No menses in prior 8 months. Scant amount reported on 03/29 and 03/30, now resolved --monitor bleeding by counting pads --should f/u with her [employer] provider after BMT Premature menopause 12/26/2015 Postmenopausal atrophic vaginitis 12/26/2015 Dyspareunia 12/26/2015 documented as of this encounter (statuses as of 06/11/2022) [facility] of Past illness Narrative* Problem Noted Date Resolved Date Menorrhagia with regular cycle 03/15/2017 1 03/03/2017 Overview: Added automatically from request for surgery [id number] History of pulmonary embolism 04/25/2016 Neoplastic (malignant) [...] FOLLOW-UP 10/27/20122015 Overview: 32 yo female from [place]. Family involved with care, at bedside. plan to discharge patient home - will arrange with case management for post op care as needed - follow up in OPD in 7-10 days Post-op pain 10/27/2012 12/26/2015 Overview: currently well controlled with [employer]AN. will start PO pain meds today 10/27. tolerating percocet, pain relatively well controlled. Hodgkin's disease with nodular sclerosis 013 12/26/2015 Overview: Oncology history (per Dr. 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 Hodgkin's disease, unspecified 02/05/2012 0 05/11/2014 Vaginal bleeding 12/26/2015 Overview: --likely from thrombocytopenia. No menses in prior 8 months. Scant amount reported on 03/29 and 03/30, now resolved --monitor bleeding by counting pads --should f/u with her [employer] provider after BMT Premature menopause 12/26/2015 Postmenopausal atrophic vaginitis 12/26/2015 Dyspareunia 12/26/2015 documented as of this encounter (statuses as of 06/12/2022) [facility]01-26-2018 History of Past illness Narrative* Problem Noted Date Resolved Date Menorrhagia with regular cycle 03/15/2017 1 03/03/2017 Overview: Added automatically from request for surgery [id number] History of pulmonary embolism 04/25/2016 Neoplastic (malignant) [...] FOLLOW-UP 10/27/20122015 Overview: 32 yo female from [place], [place]. Family involved with care, at bedside. plan to discharge patient home - will arrange with case management for post op care as needed - follow up in OPD in 7-10 days Post-op pain 10/27/2012 12/26/2015 Overview: currently well controlled with [employer]. will start PO pain meds today 10/27. tolerating percocet, pain relatively well controlled. Hodgkin's disease with nodular sclerosis 013 12/26/2015 Overview: Oncology history (per Dr. 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 Hodgkin's disease, unspecified 02/05/2012 0 05/11/2014 Vaginal bleeding 12/26/2015 Overview: --likely from thrombocytopenia. No menses in prior 8 months. Scant amount reported on 03/29 and 03/30, now resolved --monitor bleeding by counting pads --should f/u with her [employer] provider after BMT Premature menopause 12/26/2015 Postmenopausal atrophic vaginitis 12/26/2015 Dyspareunia 12/26/2015 documented as of this encounter (statuses as of 06/12/2022) [facility] History of Past illness Narrative* Problem Noted Date Resolved Date Menorrhagia with regular cycle 03/15/2017 1 03/03/2017 Overview: Added automatically from request for surgery [id number] History of pulmonary embolism 04/25/2016 Neoplastic (malignant) [...] FOLLOW-UP 10/27/20122015 Overview: 32 yo female from [place], [place]. Family involved with care, at bedside. plan to discharge patient home - will arrange with case management for post op care as needed - follow up in OPD in 7-10 days Post-op pain 10/27/2012 12/26/2015 Overview: currently well controlled with [employer]. will start PO pain meds today 10/27. tolerating percocet, pain relatively well controlled. Hodgkin's disease with nodular sclerosis 013 12/26/2015 Overview: Oncology history (per Dr. 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 Hodgkin's disease, unspecified 02/05/2012 0 05/11/2014 Vaginal bleeding 12/26/2015 Overview: --likely from thrombocytopenia. No menses in prior 8 months. Scant amount reported on 03/29 and 03/30, now resolved --monitor bleeding by counting pads --should f/u with her [employer] provider after BMT Premature menopause 12/26/2015 Postmenopausal atrophic vaginitis 12/26/2015 Dyspareunia 12/26/2015 documented as of this encounter (statuses as of 06/12/2022) [facility] History of Past illness Narrative* Problem Noted Date Resolved Date Menorrhagia with regular cycle 03/15/2017 1 03/03/2017 Overview: Added automatically from request for surgery [id number] History of pulmonary embolism 04/25/2016 Neoplastic (malignant) related fatigue 7 01/01/2018 Hidradenitis suppurativa 01/17/2016 11/14/2 018 Vitamin D deficiency 06/09/2015 12/26/2015 HyperCKemia [...] FOLLOW-UP 10/27/20122015 Overview: 32 yo female from [place], [place]. Family involved with care, at bedside. plan to discharge patient home - will arrange with case management for post op care as needed - follow up in OPD in 7-10 days Post-op pain 10/27/2012 12/26/2015 Overview: currently well controlled with [employer]. will start PO pain meds today 10/27. tolerating percocet, pain relatively well controlled. Hodgkin's disease with nodular sclerosis 013 12/26/2015 Overview: Oncology history (per Dr. 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 Hodgkin's disease, unspecified 02/05/2012 0 05/11/2014 Vaginal bleeding 12/26/2015 Overview: --likely from thrombocytopenia. No menses in prior 8 months. Scant amount reported on 03/29 and 03/30, now resolved --monitor bleeding by counting pads --should f/u with her [employer] provider after BMT Premature menopause 12/26/2015 Postmenopausal atrophic vaginitis 12/26/2015 Dyspareunia 12/26/2015 documented as of this encounter (statuses as of 06/15/2022) [facility] History of Past illness Narrative* Problem Noted Date Resolved Date Menorrhagia with regular cycle 03/15/2017 1 03/03/2017 Overview: Added automatically from request for surgery [id number] History of pulmonary embolism 04/25/2016 Neoplastic (malignant) [...] FOLLOW-UP 10/27/20122015 Overview: 32 yo female from [place]. Family involved with care, at bedside. plan to discharge patient home - will arrange with case management for post op care as needed - follow up in OPD in 7-10 days Post-op pain 10/27/2012 12/26/2015 Overview: currently well controlled with [employer]. will start PO pain meds today 10/27. tolerating percocet, pain relatively well controlled. Hodgkin's disease with nodular sclerosis 013 12/26/2015 Overview: Oncology history (per Dr. 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 Hodgkin's disease, unspecified 02/05/2012 0 05/11/2014 Vaginal bleeding 12/26/2015 Overview: --likely from thrombocytopenia. No menses in prior 8 months. Scant amount reported on 03/29 and 03/30, now resolved --monitor bleeding by counting pads --should f/u with her [employer] provider after BMT Premature menopause 12/26/2015 Postmenopausal atrophic vaginitis 12/26/2015 Dyspareunia 12/26/2015 documented as of this encounter (statuses as of 07/17/2022) [facility] History of Past illness Narrative* Problem Noted Date Resolved Date Menorrhagia with regular cycle 03/15/2017 1 03/03/2017 Overview: Added automatically from request for surgery [id number] History of pulmonary embolism 04/25/2016 Neoplastic (malignant) [...] FOLLOW-UP 10/27/20122015 Overview: 32 yo female from [place]. Family involved with care, at bedside. plan to discharge patient home - will arrange with case management for post op care as needed - follow up in OPD in 7-10 days Post-op pain 10/27/2012 12/26/2015 Overview: currently well controlled with [employer]. will start PO pain meds today 10/27. tolerating percocet, pain relatively well controlled. Hodgkin's disease with nodular sclerosis 013 12/26/2015 Overview: Oncology history (per Dr. 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 Hodgkin's disease, unspecified 02/05/2012 0 05/11/2014 Vaginal bleeding 12/26/2015 Overview: --likely from thrombocytopenia. No menses in prior 8 months. Scant amount reported on 03/29 and 03/30, now resolved --monitor bleeding by counting pads --should f/u with her [employer] provider after BMT Premature menopause 12/26/2015 Postmenopausal atrophic vaginitis 12/26/2015 Dyspareunia 12/26/2015 documented as of this encounter (statuses as of 07/17/2022) [facility] History of Past illness Narrative* Problem Noted Date Resolved Date Menorrhagia with regular cycle 03/15/2017 1 03/03/2017 Overview: Added automatically from request for surgery [id number] History of pulmonary embolism 04/25/2016 Neoplastic (malignant) [...] FOLLOW-UP 10/27/20122015 Overview: 32 yo female from [place]. Family involved with care, at bedside. plan to discharge patient home - will arrange with case management for post op care as needed - follow up in OPD in 7-10 days Post-op pain 10/27/2012 12/26/2015 Overview: currently well controlled with [employer]. will start PO pain meds today 10/27. tolerating percocet, pain relatively well controlled. Hodgkin's disease with nodular sclerosis 013 12/26/2015 Overview: Oncology history (per Dr. 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 Hodgkin's disease, unspecified 02/05/2012 0 05/11/2014 Vaginal bleeding 12/26/2015 Overview: --likely from thrombocytopenia. No menses in prior 8 months. Scant amount reported on 03/29 and 03/30, now resolved --monitor bleeding by counting pads --should f/u with her [employer] provider after BMT Premature menopause 12/26/2015 Postmenopausal atrophic vaginitis 12/26/2015 Dyspareunia 12/26/2015 documented as of this encounter (statuses as of 07/18/2022) [facility] History of Past illness Narrative* Problem Noted Date Resolved Date Menorrhagia with regular cycle 03/15/2017 1 03/03/2017 Overview: Added automatically from request for surgery [id number] History of pulmonary embolism 04/25/2016 Neoplastic (malignant) [...] FOLLOW-UP 10/27/20122015 Overview: 32 yo female from [place]. Family involved with care, at bedside. plan to discharge patient home - will arrange with case management for post op care as needed - follow up in OPD in 7-10 days Post-op pain 10/27/2012 12/26/2015 Overview: currently well controlled with [employer]. will start PO pain meds today 10/27. tolerating percocet, pain relatively well controlled. Hodgkin's disease with nodular sclerosis 013 12/26/2015 Overview: Oncology history (per Dr. 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 Hodgkin's disease, unspecified 02/05/2012 0 05/11/2014 Vaginal bleeding 12/26/2015 Overview: --likely from thrombocytopenia. No menses in prior 8 months. Scant amount reported on 03/29 and 03/30, now resolved --monitor bleeding by counting pads --should f/u with her [employer] provider after BMT Premature menopause 12/26/2015 Postmenopausal atrophic vaginitis 12/26/2015 Dyspareunia 12/26/2015 documented as of this encounter (statuses as of 07/19/2022) [facility] History of Past illness Narrative* Problem Noted Date Resolved Date Menorrhagia with regular cycle 03/15/2017 1 03/03/2017 Overview: Added automatically from request for surgery [id number] History of pulmonary embolism 04/25/2016 Neoplastic (malignant) [...] FOLLOW-UP 10/27/20122015 Overview: 32 yo female from [place]. Family involved with care, at bedside. plan to discharge patient home - will arrange with case management for post op care as needed - follow up in OPD in 7-10 days Post-op pain 10/27/2012 12/26/2015 Overview: currently well controlled with [employer]. will start PO pain meds today 10/27. tolerating percocet, pain relatively well controlled. Hodgkin's disease with nodular sclerosis 013 12/26/2015 Overview: Oncology history (per Dr. 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 Hodgkin's disease, unspecified 02/05/2012 0 05/11/2014 Vaginal bleeding 12/26/2015 Overview: --likely from thrombocytopenia. No menses in prior 8 months. Scant amount reported on 03/29 and 03/30, now resolved --monitor bleeding by counting pads --should f/u with her [employer] provider after BMT Premature menopause 12/26/2015 Postmenopausal atrophic vaginitis 12/26/2015 Dyspareunia 12/26/2015 documented as of this encounter (statuses as of 07/19/2022) [facility] History of Past illness Narrative* Problem Noted Date Resolved Date Menorrhagia with regular cycle 03/15/201703/03/2017 Overview: Added automatically from request for surgery [id number] History of pulmonary embolism 04/25/2016 Neoplastic (malignant) related fatigue 7 01/01/2018 Hidradenitis suppurativa 01/17/2016 11/14/2 018 Vitamin D deficiency 06/09/2015 12/26/2015 HyperCKemia [...] FOLLOW-UP 10/27/20122015 Overview: 32 yo female from [place]. Family involved with care, at bedside. plan to discharge patient home - will arrange with case management for post op care as needed - follow up in OPD in 7-10 days Post-op pain 10/27/2012 12/26/2015 Overview: currently well controlled with [employer]. will start PO pain meds today 10/27. tolerating percocet, pain relatively well controlled. Hodgkin's disease with nodular sclerosis 013 12/26/2015 Overview: Oncology history (per Dr. 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 Hodgkin's disease, unspecified 02/05/2012 0 05/11/2014 Vaginal bleeding 12/26/2015 Overview: --likely from thrombocytopenia. No menses in prior 8 months. Scant amount reported on 03/29 and 03/30, now resolved --monitor bleeding by counting pads --should f/u with her [employer] provider after BMT Premature menopause 12/26/2015 Postmenopausal atrophic vaginitis 12/26/2015 Dyspareunia 12/26/2015 documented as of this encounter (statuses as of 07/25/2022) [facility] History of Past illness Narrative* Problem Noted Date Resolved Date Menorrhagia with regular cycle 03/15/2017 1 03/03/2017 Overview: Added automatically from request for surgery [id number] History of pulmonary embolism 04/25/2016 Neoplastic (malignant) [...] FOLLOW-UP 10/27/20122015 Overview: 32 yo female from [place]. Family involved with care, at bedside. plan to discharge patient home - will arrange with case management for post op care as needed - follow up in OPD in 7-10 days Post-op pain 10/27/2012 12/26/2015 Overview: currently well controlled with [employer]. will start PO pain meds today 10/27. tolerating percocet, pain relatively well controlled. Hodgkin's disease with nodular sclerosis 013 12/26/2015 Overview: Oncology history (per Dr. 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 Hodgkin's disease, unspecified 02/05/2012 0 05/11/2014 Vaginal bleeding 12/26/2015 Overview: --likely from thrombocytopenia. No menses in prior 8 months. Scant amount reported on 03/29 and 03/30, now resolved --monitor bleeding by counting pads --should f/u with her [employer] provider after BMT Premature menopause 12/26/2015 Postmenopausal atrophic vaginitis 12/26/2015 Dyspareunia 12/26/2015 documented as of this encounter (statuses as of 07/25/2022) [facility] History of Past illness Narrative* Problem Noted Date Resolved Date Menorrhagia with regular cycle 03/15/2017 1 03/03/2017 Overview: Added automatically from request for surgery [id number] History of pulmonary embolism 04/25/2016 Neoplastic (malignant) [...] FOLLOW-UP 10/27/20122015 Overview: 32 yo female from [place]. Family involved with care, at bedside. plan to discharge patient home - will arrange with case management for post op care as needed - follow up in OPD in 7-10 days Post-op pain 10/27/2012 12/26/2015 Overview: currently well controlled with [employer]. will start PO pain meds today 10/27. tolerating percocet, pain relatively well controlled. Hodgkin's disease with nodular sclerosis 013 12/26/2015 Overview: Oncology history (per Dr. 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 Hodgkin's disease, unspecified 02/05/2012 0 05/11/2014 Vaginal bleeding 12/26/2015 Overview: --likely from thrombocytopenia. No menses in prior 8 months. Scant amount reported on 03/29 and 03/30, now resolved --monitor bleeding by counting pads --should f/u with her [employer] provider after BMT Premature menopause 12/26/2015 Postmenopausal atrophic vaginitis 12/26/2015 Dyspareunia 12/26/2015 documented as of this encounter (statuses as of 07/25/2022) [facility] History of Past illness Narrative* Problem Noted Date Resolved Date Menorrhagia with regular cycle 03/15/2017 1 03/03/2017 Overview: Added automatically from request for surgery [id number] History of pulmonary embolism 04/25/2016 Neoplastic (malignant) [...] FOLLOW-UP 10/27/20122015 Overview: 32 yo female from [place]. Family involved with care, at bedside. plan to discharge patient home - will arrange with case management for post op care as needed - follow up in OPD in 7-10 days Post-op pain 10/27/2012 12/26/2015 Overview: currently well controlled with [employer]. will start PO pain meds today 10/27. tolerating percocet, pain relatively well controlled. Hodgkin's disease with nodular sclerosis 013 12/26/2015 Overview: Oncology history (per Dr. 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 Hodgkin's disease, unspecified 02/05/2012 0 05/11/2014 Vaginal bleeding 12/26/2015 Overview: --likely from thrombocytopenia. No menses in prior 8 months. Scant amount reported on 03/29 and 03/30, now resolved --monitor bleeding by counting pads --should f/u with her [employer] provider after BMT Premature menopause 12/26/2015 Postmenopausal atrophic vaginitis 12/26/2015 Dyspareunia 12/26/2015 documented as of this encounter (statuses as of 08/02/2022) [facility] History of Past illness Narrative* Problem Noted Date Resolved Date Menorrhagia with regular cycle 03/15/2017 1 03/03/2017 Overview: Added automatically from request for surgery [id number] History of pulmonary embolism 04/25/2016 Neoplastic (malignant) [...] FOLLOW-UP 10/27/20122015 Overview: 32 yo female from [place]. Family involved with care, at bedside. plan to discharge patient home - will arrange with case management for post op care as needed - follow up in OPD in 7-10 days Post-op pain 10/27/2012 12/26/2015 Overview: currently well controlled with [employer]. will start PO pain meds today 10/27. tolerating percocet, pain relatively well controlled. Hodgkin's disease with nodular sclerosis 013 12/26/2015 Overview: Oncology history (per Dr. 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 Hodgkin's disease, unspecified 02/05/2012 0 05/11/2014 Vaginal bleeding 12/26/2015 Overview: --likely from thrombocytopenia. No menses in prior 8 months. Scant amount reported on 03/29 and 03/30, now resolved --monitor bleeding by counting pads --should f/u with her [employer] provider after BMT Premature menopause 12/26/2015 Postmenopausal atrophic vaginitis 12/26/2015 Dyspareunia 12/26/2015 documented as of this encounter (statuses as of 08/05/2022) [facility] of Past illness Narrative* Problem Noted Date Resolved Date Menorrhagia with regular cycle 03/15/2017 1 03/03/2017 Overview: Added automatically from request for surgery [id number] History of pulmonary embolism 04/25/2016 Neoplastic (malignant) [...] FOLLOW-UP 10/27/20122015 Overview: 32 yo female from [place]. Family involved with care, at bedside. plan to discharge patient home - will arrange with case management for post op care as needed - follow up in OPD in 7-10 days Post-op pain 10/27/2012 12/26/2015 Overview: currently well controlled with [employer]. will start PO pain meds today 10/27. tolerating percocet, pain relatively well controlled. Hodgkin's disease with nodular sclerosis 013 12/26/2015 Overview: Oncology history (per Dr. 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 Hodgkin's disease, unspecified 02/05/2012 0 05/11/2014 Vaginal bleeding 12/26/2015 Overview: --likely from thrombocytopenia. No menses in prior 8 months. Scant amount reported on 03/29 and 03/30, now resolved --monitor bleeding by counting pads --should f/u with her [employer] provider after BMT Premature menopause 12/26/2015 Postmenopausal atrophic vaginitis 12/26/2015 Dyspareunia 12/26/2015 documented as of this encounter (statuses as of 08/10/2022) [facility] of Past illness Narrative* Problem Noted Date Resolved Date Menorrhagia with regular cycle 03/15/2017 1 03/03/2017 Overview: Added automatically from request for surgery [id number] History of pulmonary embolism 04/25/2016 Neoplastic (malignant) [...] FOLLOW-UP 10/27/20122015 Overview: 32 yo female from [place]. Family involved with care, at bedside. plan to discharge patient home - will arrange with case management for post op care as needed - follow up in OPD in 7-10 days Post-op pain 10/27/2012 12/26/2015 Overview: currently well controlled with [employer]AN. will start PO pain meds today 10/27. tolerating percocet, pain relatively well controlled. Hodgkin's disease with nodular sclerosis 013 12/26/2015 Overview: Oncology history (per Dr. 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 Hodgkin's disease, unspecified 02/05/2012 0 05/11/2014 Vaginal bleeding 12/26/2015 Overview: --likely from thrombocytopenia. No menses in prior 8 months. Scant amount reported on 03/29 and 03/30, now resolved --monitor bleeding by counting pads --should f/u with her [facility] P[facility] provider after BMT Premature menopause 12/26/2015 Postmenopausal atrophic vaginitis 12/26/2015 Dyspareunia 12/26/2015 documented as of this encounter (statuses as of 08/10/2022) [facility]01-26-2018 History of Past illness Narrative* Problem Noted Date Resolved Date Menorrhagia with regular cycle 03/15/2017 1 03/03/2017 Overview: Added automatically from request for surgery [id number] History of pulmonary embolism 04/25/2016 Neoplastic (malignant) [...] FOLLOW-UP 10/27/20122015 Overview: 32 yo female from [place], [place]. Family involved with care, at bedside. plan to discharge patient home - will arrange with case management for post op care as needed - follow up in OPD in 7-10 days Post-op pain 10/27/2012 12/26/2015 Overview: currently well controlled with [employer]WOMAN. will start PO pain meds today 10/27. tolerating percocet, pain relatively well controlled. Hodgkin's disease with nodular sclerosis 013 12/26/2015 Overview: Oncology history (per Dr. 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 Hodgkin's disease, unspecified 02/05/2012 0 05/11/2014 Vaginal bleeding 12/26/2015 Overview: --likely from thrombocytopenia. No menses in prior 8 months. Scant amount reported on 03/29 and 03/30, now resolved --monitor bleeding by counting pads --should f/u with her [employer] provider after BMT Premature menopause 12/26/2015 Postmenopausal atrophic vaginitis 12/26/2015 Dyspareunia 12/26/2015 documented as of this encounter (statuses as of 08/17/2022) [facility] History of Past illness Narrative* Problem Noted Date Resolved Date Menorrhagia with regular cycle 03/15/2017 1 03/03/2017 Overview: Added automatically from request for surgery [id number] History of pulmonary embolism 04/25/2016 Neoplastic (malignant) [...] FOLLOW-UP 10/27/20122015 Overview: 32 yo female from [place], [place]. Family involved with care, at bedside. plan to discharge patient home - will arrange with case management for post op care as needed - follow up in OPD in 7-10 days Post-op pain 10/27/2012 12/26/2015 Overview: currently well controlled with [employer]WOMAN. will start PO pain meds today 10/27. tolerating percocet, pain relatively well controlled. Hodgkin's disease with nodular sclerosis 013 12/26/2015 Overview: Oncology history (per Dr. 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 Hodgkin's disease, unspecified 02/05/2012 0 05/11/2014 Vaginal bleeding 12/26/2015 Overview: --likely from thrombocytopenia. No menses in prior 8 months. Scant amount reported on 03/29 and 03/30, now resolved --monitor bleeding by counting pads --should f/u with her [employer] provider after BMT Premature menopause 12/26/2015 Postmenopausal atrophic vaginitis 12/26/2015 Dyspareunia 12/26/2015 documented as of this encounter (statuses as of 08/23/2022) [facility] History of Past illness Narrative* Problem Noted Date Diagnosed Date Resolved Date Menorrhagia with regular cycle 03/15/2017 01/01/2018 Overview: Added automatically from request for surgery [id number] History of pulmonary embolism 04/25/2016 01/01/2018 Neoplastic [...] with relief, continue Chronic chest pain 03/16/2013 11/07/201 6 Overview: --now resolved --since Hodgkin lymphoma [...] FOLLOW-UP 10/27/2012 Overview: 32 yo female from [place]. Family involved with care, at bedside. plan to discharge patient home - will arrange with case management for post op care as needed - follow up in OPD in 7-10 days Post-op pain 10/27/2012 12/26/2015 Overview: currently well controlled with [employer]WOMAN. will start PO pain meds today 10/27. tolerating percocet, pain relatively well controlled. Hodgkin's disease with nodular sclerosis 05/27/2012 12/26/2015 Overview: Oncology history (per Dr. 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 Hodgkin's disease, unspecified 02/05/2012 05/11/2014 Vaginal bleeding 12/26/2015 Overview: --likely from thrombocytopenia. No menses in prior 8 months. Scant amount reported on 03/29 and 2/10, now resolved --monitor bleeding by counting pads --should f/u with her [employer] provider after BMT Premature menopause 12/26/19 16 Postmenopausal atrophic vaginitis 12/26/2015 Dyspareunia 12/26/2015 documented as of this encounter (statuses as of 08/27/2022) [facility] History of Past illness Narrative* Problem Noted Date Diagnosed Date Resolved Date Menorrhagia with regular cycle 03/15/2017 01/01/2018 Overview: Added automatically from request for surgery [id number] History of pulmonary embolism 04/25/2016 01/01/2018 Neoplastic [...] FOLLOW-UP 10/27/2012 Overview: 32 yo female from [place]. Family involved with care, at bedside. plan to discharge patient home - will arrange with case management for post op care as needed - follow up in OPD in 7-10 days Post-op pain 10/27/2012 12/26/2015 Overview: currently well controlled with [employer]SM[employer]/WOMAN. will start PO pain meds today 10/27. tolerating percocet, pain relatively well controlled. Hodgkin's disease with nodular sclerosis 05/27/2012 12/26/2015 Overview: Oncology history (per Dr. 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 Hodgkin's disease, unspecified 02/05/2012 05/11/2014 Vaginal bleeding 12/26/2015 Overview: --likely from thrombocytopenia. No menses in prior 8 months. Scant amount reported on 03/29 and 03/30, now resolved --monitor bleeding by counting pads --should f/u with her [employer] provider after BMT Premature menopause 12/26/19 16 Postmenopausal atrophic vaginitis 12/26/2015 Dyspareunia 12/26/2015 documented as of this encounter (statuses as of 08/30/2022) [facility] History of Past illness Narrative* Problem Noted Date Diagnosed Date Resolved Date Menorrhagia with regular cycle 03/15/2017 01/01/2018 Overview: Added automatically from request for surgery [id number] History of pulmonary embolism 04/25/2016 01/01/2018 Neoplastic [...] FOLLOW-UP 10/27/2012 Overview: 32 yo female from [place]. Family involved with care, at bedside. plan to discharge patient home - will arrange with case management for post op care as needed - follow up in OPD in 7-10 days Post-op pain 10/27/2012 12/26/2015 Overview: currently well controlled with [employer]/WOMAN. will start PO pain meds today 10/27. tolerating percocet, pain relatively well controlled. Hodgkin's disease with nodular sclerosis 05/27/2012 12/26/2015 Overview: Oncology history (per Dr. 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 Hodgkin's disease, unspecified 02/05/2012 05/11/2014 Vaginal bleeding 12/26/2015 Overview: --likely from thrombocytopenia. No menses in prior 8 months. Scant amount reported on 03/29 and 03/30, now resolved --monitor bleeding by counting pads --should f/u with her [employer] provider after BMT Premature menopause 12/26/19 16 Postmenopausal atrophic vaginitis 12/26/2015 Dyspareunia 12/26/2015 documented as of this encounter (statuses as of 08/31/2022) [facility] History of Past illness Narrative* Problem Noted Date Diagnosed Date Resolved Date Menorrhagia with regular cycle 03/15/2017 01/01/2018 Overview: Added automatically from request for surgery [id number] History of pulmonary embolism 04/25/2016 01/01/2018 Neoplastic [...] FOLLOW-UP 10/27/2012 Overview: 32 yo female from [place]. Family involved with care, at bedside. plan to discharge patient home - will arrange with case management for post op care as needed - follow up in OPD in 7-10 days Post-op pain 10/27/2012 12/26/2015 Overview: currently well controlled with [employer]/WOMAN. will start PO pain meds today 10/27. tolerating percocet, pain relatively well controlled. Hodgkin's disease with nodular sclerosis 05/27/2012 12/26/2015 Overview: Oncology history (per Dr. 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 Hodgkin's disease, unspecified 02/05/2012 05/11/2014 Vaginal bleeding 12/26/2015 Overview: --likely from thrombocytopenia. No menses in prior 8 months. Scant amount reported on 03/29 and 03/30, now resolved --monitor bleeding by counting pads --should f/u with her [employer] provider after BMT Premature menopause 12/26/19 16 Postmenopausal atrophic vaginitis 12/26/2015 Dyspareunia 12/26/2015 documented as of this encounter (statuses as of 09/01/2022) [facility] History of Past illness Narrative* Problem Noted Date Diagnosed Date Resolved Date Menorrhagia with regular cycle 03/15/2017 01/01/2018 Overview: Added automatically from request for surgery [id number] History of pulmonary embolism 04/25/2016 01/01/2018 Neoplastic (malignant) related fatigue 04/25/2016 01/01/2018 Hidradenitis suppurativa 01/17/2016 Vitamin D deficiency 06/09/2015 016 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 Family involved with care, at bedside. plan to discharge patient home - will arrange with case management for post op care as needed - follow up in OPD in 7-10 days Post-op pain 10/27/2012 12/26/2015 Overview: currently well controlled with [employer]SM[employer]/WOMAN. will start PO pain meds today 10/27. tolerating percocet, pain relatively well controlled. Hodgkin's disease with nodular sclerosis 05/27/2012 12/26/2015 Overview: Oncology history (per Dr. 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 Hodgkin's disease, unspecified 02/05/2012 05/11/2014 Vaginal bleeding 12/26/2015 Overview: --likely from thrombocytopenia. No menses in prior 8 months. Scant amount reported on 03/29 and 03/30, now resolved --monitor bleeding by counting pads --should f/u with her [employer] provider after BMT Premature menopause 12/26/19 16 Postmenopausal atrophic vaginitis 12/26/2015 Dyspareunia 12/26/2015 documented as of this encounter (statuses as of 09/06/2022) [facility] History of Past illness Narrative* Problem Noted Date Diagnosed Date Resolved Date Menorrhagia with regular cycle 03/15/2017 01/01/2018 Overview: Added automatically from request for surgery [id number] History of pulmonary embolism 04/25/2016 01/01/2018 Neoplastic [...] FOLLOW-UP 10/27/2012 Overview: 32 yo female from [place]. Family involved with care, at bedside. plan to discharge patient home - will arrange with case management for post op care as needed - follow up in OPD in 7-10 days Post-op pain 10/27/2012 12/26/2015 Overview: currently well controlled with [employer]/WOMAN. will start PO pain meds today 10/27. tolerating percocet, pain relatively well controlled. Hodgkin's disease with nodular sclerosis 05/27/2012 12/26/2015 Overview: Oncology history (per Dr. 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 Hodgkin's disease, unspecified 02/05/2012 05/11/2014 Vaginal bleeding 12/26/2015 Overview: --likely from thrombocytopenia. No menses in prior 8 months. Scant amount reported on 03/29 and 03/30, now resolved --monitor bleeding by counting pads --should f/u with her [employer] provider after BMT Premature menopause 12/26/19 16 Postmenopausal atrophic vaginitis 12/26/2015 Dyspareunia 12/26/2015 documented as of this encounter (statuses as of 09/13/2022) [facility] History of Past illness Narrative* Problem Noted Date Diagnosed Date Resolved Date Menorrhagia with regular cycle 03/15/2017 01/01/2018 Overview: Added automatically from request for surgery [id number] History of pulmonary embolism 04/25/2016 01/01/2018 Neoplastic [...] FOLLOW-UP 10/27/2012 Overview: 32 yo female from [place]. Family involved with care, at bedside. plan to discharge patient home - will arrange with case management for post op care as needed - follow up in OPD in 7-10 days Post-op pain 10/27/2012 12/26/2015 Overview: currently well controlled with [employer]WOMAN. will start PO pain meds today 10/27. tolerating percocet, pain relatively well controlled. Hodgkin's disease with nodular sclerosis 05/27/2012 12/26/2015 Overview: Oncology history (per Dr. 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 Hodgkin's disease, unspecified 02/05/2012 05/11/2014 Vaginal bleeding 12/26/2015 Overview: --likely from thrombocytopenia. No menses in prior 8 months. Scant amount reported on 03/29 and 03/30, now resolved --monitor bleeding by counting pads --should f/u with her [employer] provider after BMT Premature menopause 12/26/19 16 Postmenopausal atrophic vaginitis 12/26/2015 Dyspareunia 12/26/2015 documented as of this encounter (statuses as of 09/28/2022) [facility] History of Past illness Narrative* Problem Noted Date Diagnosed Date Resolved Date Menorrhagia with regular cycle 03/15/2017 01/01/2018 Overview: Added automatically from request for surgery [id number] History of pulmonary embolism 04/25/2016 01/01/2018 Neoplastic (malignant) related fatigue 04/25/2016 01/01/2018 Hidradenitis suppurativa 01/17/2016 Vitamin D deficiency 06/09/2015 016 HyperCKemia 05/06/2015 12/26/2015 Elevated aldolase level 05/06/20150 08/2015 Chronic pain of both knees 05/06/2015 [...] FOLLOW-UP 10/27/2012 Overview: 32 yo female from [place]. Family involved with care, at bedside. plan to discharge patient home - will arrange with case management for post op care as needed - follow up in OPD in 7-10 days Post-op pain 10/27/2012 12/26/2015 Overview: currently well controlled with [employer]SM[employer]/WOMAN. will start PO pain meds today 10/27. tolerating percocet, pain relatively well controlled. Hodgkin's disease with nodular sclerosis 05/27/2012 12/26/2015 Overview: Oncology history (per Dr. 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 Hodgkin's disease, unspecified 02/05/2012 05/11/2014 Vaginal bleeding 12/26/2015 Overview: --likely from thrombocytopenia. No menses in prior 8 months. Scant amount reported on 03/29 and 03/30, now resolved --monitor bleeding by counting pads --should f/u with her [employer] provider after BMT Premature menopause 12/26/19 16 Postmenopausal atrophic vaginitis 12/26/2015 Dyspareunia 12/26/2015 documented as of this encounter (statuses as of 10/08/2022) [facility] History of Past illness Narrative* Problem Noted Date Diagnosed Date Resolved Date Menorrhagia with regular cycle 03/15/2017 01/01/2018 Overview: Added automatically from request for surgery [id number] History of pulmonary embolism 04/25/2016 01/01/2018 Neoplastic [...] FOLLOW-UP 10/27/2012 Overview: 32 yo female from [place]. Family involved with care, at bedside. plan to discharge patient home - will arrange with case management for post op care as needed - follow up in OPD in 7-10 days Post-op pain 10/27/2012 12/26/2015 Overview: currently well controlled with [employer]/WOMAN. will start PO pain meds today 10/27. tolerating percocet, pain relatively well controlled. Hodgkin's disease with nodular sclerosis 05/27/2012 12/26/2015 Overview: Oncology history (per Dr. 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 Hodgkin's disease, unspecified 02/05/2012 05/11/2014 Vaginal bleeding 12/26/2015 Overview: --likely from thrombocytopenia. No menses in prior 8 months. Scant amount reported on 03/29 and 03/30, now resolved --monitor bleeding by counting pads --should f/u with her [employer] provider after BMT Premature menopause 12/26/19 16 Postmenopausal atrophic vaginitis 12/26/2015 Dyspareunia 12/26/2015 documented as of this encounter (statuses as of 10/09/2022) [facility] of Past illness Narrative* Problem Noted Date Diagnosed Date Resolved Date Menorrhagia with regular cycle 03/15/2017 01/01/2018 Overview: Added automatically from request for surgery [id number] History of pulmonary embolism 04/25/2016 01/01/2018 Neoplastic [...] FOLLOW-UP 10/27/2012 Overview: 32 yo female from [place]. Family involved with care, at bedside. plan to discharge patient home - will arrange with case management for post op care as needed - follow up in OPD in 7-10 days Post-op pain 10/27/2012 12/26/2015 Overview: currently well controlled with [employer]/WOMAN. will start PO pain meds today 10/27. tolerating percocet, pain relatively well controlled. Hodgkin's disease with nodular sclerosis 05/27/2012 12/26/2015 Overview: Oncology history (per Dr. 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 Hodgkin's disease, unspecified 02/05/2012 05/11/2014 Vaginal bleeding 12/26/2015 Overview: --likely from thrombocytopenia. No menses in prior 8 months. Scant amount reported on 03/29 and 03/30, now resolved --monitor bleeding by counting pads --should f/u with her [employer] provider after BMT Premature menopause 12/26/19 16 Postmenopausal atrophic vaginitis 12/26/2015 Dyspareunia 12/26/2015 documented as of this encounter (statuses as of 10/09/2022) [facility] History of Past illness Narrative* Problem Noted Date Diagnosed Date Resolved Date Menorrhagia with regular cycle 03/15/2017 01/01/2018 Overview: Added automatically from request for surgery [id number] History of pulmonary embolism 04/25/2016 01/01/2018 Neoplastic [...] FOLLOW-UP 10/27/2012 Overview: 32 yo female from [place]. Family involved with care, at bedside. plan to discharge patient home - will arrange with case management for post op care as needed - follow up in OPD in 7-10 days Post-op pain 10/27/2012 12/26/2015 Overview: currently well controlled with [employer]/WOMAN. will start PO pain meds today 10/27. tolerating percocet, pain relatively well controlled. Hodgkin's disease with nodular sclerosis 05/27/2012 12/26/2015 Overview: Oncology history (per Dr. 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 Hodgkin's disease, unspecified 02/05/2012 05/11/2014 Vaginal bleeding 12/26/2015 Overview: --likely from thrombocytopenia. No menses in prior 8 months. Scant amount reported on 03/29 and 03/30, now resolved --monitor bleeding by counting pads --should f/u with her [employer] provider after BMT Premature menopause 12/26/19 16 Postmenopausal atrophic vaginitis 12/26/2015 Dyspareunia 12/26/2015 documented as of this encounter (statuses as of 10/10/2022) [facility] of Past illness Narrative* Problem Noted Date Diagnosed Date Resolved Date Menorrhagia with regular cycle 03/15/2017 01/01/2018 Overview: Added automatically from request for surgery [id number] History of pulmonary embolism 04/25/2016 01/01/2018 Neoplastic [...] FOLLOW-UP 10/27/2012 Overview: 32 yo female from [place]. Family involved with care, at bedside. plan to discharge patient home - will arrange with case management for post op care as needed - follow up in OPD in 7-10 days Post-op pain 10/27/2012 12/26/2015 Overview: currently well controlled with [employer]AN. will start PO pain meds today 10/27. tolerating percocet, pain relatively well controlled. Hodgkin's disease with nodular sclerosis 05/27/2012 12/26/2015 Overview: Oncology history (per Dr. 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 Hodgkin's disease, unspecified 02/05/2012 05/11/2014 Vaginal bleeding 12/26/2015 Overview: --likely from thrombocytopenia. No menses in prior 8 months. Scant amount reported on 03/29 and 03/30, now resolved --monitor bleeding by counting pads --should f/u with her [employer] provider after BMT Premature menopause 12/26/19 16 Postmenopausal atrophic vaginitis 12/26/2015 Dyspareunia 12/26/2015 documented as of this encounter (statuses as of 10/10/2022) [facility] of Past illness Narrative* Problem Noted Date Diagnosed Date Resolved Date Menorrhagia with regular cycle 03/15/2017 01/01/2018 Overview: Added automatically from request for surgery [id number] History of pulmonary embolism 04/25/2016 01/01/2018 Neoplastic [...] FOLLOW-UP 10/27/2012 Overview: 32 yo female from [place]. Family involved with care, at bedside. plan to discharge patient home - will arrange with case management for post op care as needed - follow up in OPD in 7-10 days Post-op pain 10/27/2012 12/26/2015 Overview: currently well controlled with [employer]WOMAN. will start PO pain meds today 10/27. tolerating percocet, pain relatively well controlled. Hodgkin's disease with nodular sclerosis 05/27/2012 12/26/2015 Overview: Oncology history (per Dr. 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 Hodgkin's disease, unspecified 02/05/2012 05/11/2014 Vaginal bleeding 12/26/2015 Overview: --likely from thrombocytopenia. No menses in prior 8 months. Scant amount reported on 03/29 and 03/30, now resolved --monitor bleeding by counting pads --should f/u with her [employer] provider after BMT Premature menopause 12/26/19 16 Postmenopausal atrophic vaginitis 12/26/2015 Dyspareunia 12/26/2015 documented as of this encounter (statuses as of 10/18/2022) [facility]01-[facility] History of Past illness Narrative* Problem Noted Date Diagnosed Date Resolved Date Menorrhagia with regular cycle 03/15/2017 01/01/2018 Overview: Added automatically from request for surgery [id number] History of pulmonary embolism 04/25/2016 01/01/2018 Neoplastic [...] 07/22/2014 12/26/2015 Weakness of both legs 07/22/2014 11/07/ 2016 Sprain of ankle, left 06/29/20142015 PCP (pneumocystis [...] FOLLOW-UP 10/27/2012 Overview: 32 yo female from [place], [place]. Family involved with care, at bedside. plan to discharge patient home - will arrange with case management for post op care as needed - follow up in OPD in 7-10 days Post-op pain 10/27/2012 12/26/2015 Overview: currently well controlled with [employer]. will start PO pain meds today 10/27. tolerating percocet, pain relatively well controlled. Hodgkin's disease with nodular sclerosis 05/27/2012 12/26/2015 Overview: Oncology history (per Dr. 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 Hodgkin's disease, unspecified 02/05/2012 05/11/2014 Vaginal bleeding 12/26/2015 Overview: --likely from thrombocytopenia. No menses in prior 8 months. Scant amount reported on 03/29 and 03/30, now resolved --monitor bleeding by counting pads --should f/u with her [employer] provider after BMT Premature menopause 12/26/19 16 Postmenopausal atrophic vaginitis 12/26/2015 Dyspareunia 12/26/2015 documented as of this encounter (statuses as of 10/18/2022) [facility] History of Past illness Narrative* Problem Noted Date Diagnosed Date Resolved Date Menorrhagia with regular cycle 03/15/2017 01/01/2018 Overview: Added automatically from request for surgery [id number] History of pulmonary embolism 04/25/2016 01/01/2018 Neoplastic (malignant) related fatigue 04/25/2016 01/01/2018 Hidradenitis suppurativa 01/17/2016 Vitamin D deficiency 06/09/2015 016 HyperCKemia 05/06/2015 12/26/2015 Elevated aldolase level 05/06/2015/0 08/2015 Chronic pain of both knees 05/06/2015 [...] FOLLOW-UP 10/27/2012 Overview: 32 yo female from [place], [place]. Family involved with care, at bedside. plan to discharge patient home - will arrange with case management for post op care as needed - follow up in OPD in 7-10 days Post-op pain 10/27/2012 12/26/2015 Overview: currently well controlled with [employer]OM[employer]. will start PO pain meds today 10/27. tolerating percocet, pain relatively well controlled. Hodgkin's disease with nodular sclerosis 05/27/2012 12/26/2015 Overview: Oncology history (per Dr. 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 Hodgkin's disease, unspecified 02/05/2012 05/11/2014 Vaginal bleeding 12/26/2015 Overview: --likely from thrombocytopenia. No menses in prior 8 months. Scant amount reported on 03/29 and 03/30, now resolved --monitor bleeding by counting pads --should f/u with her [employer] provider after BMT Premature menopause 12/26/19 16 Postmenopausal atrophic vaginitis 12/26/2015 Dyspareunia 12/26/2015 documented as of this encounter (statuses as of 10/19/2022) [facility] History of Past illness Narrative* Problem Noted Date Diagnosed Date Resolved Date Menorrhagia with regular cycle 03/15/2017 01/01/2018 Overview: Added automatically from request for surgery [id number] History of pulmonary embolism 04/25/2016 01/01/2018 Neoplastic [...] FOLLOW-UP 10/27/2012 Overview: 32 yo female from [place], [place]. Family involved with care, at bedside. plan to discharge patient home - will arrange with case management for post op care as needed - follow up in OPD in 7-10 days Post-op pain 10/27/2012 12/26/2015 Overview: currently well controlled with [employer]. will start PO pain meds today 10/27. tolerating percocet, pain relatively well controlled. Hodgkin's disease with nodular sclerosis 05/27/2012 12/26/2015 Overview: Oncology history (per Dr. 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 Hodgkin's disease, unspecified 02/05/2012 05/11/2014 Vaginal bleeding 12/26/2015 Overview: --likely from thrombocytopenia. No menses in prior 8 months. Scant amount reported on 03/29 and 03/30, now resolved --monitor bleeding by counting pads --should f/u with her [employer] provider after BMT Premature menopause 12/26/19 16 Postmenopausal atrophic vaginitis 12/26/2015 Dyspareunia 12/26/2015 documented as of this encounter (statuses as of 10/24/2022) [facility] History of Past illness Narrative* Problem Noted Date Diagnosed Date Resolved Date Menorrhagia with regular cycle 03/15/2017 01/01/2018 Overview: Added automatically from request for surgery [id number] History of pulmonary embolism 04/25/2016 01/01/2018 Neoplastic [...] FOLLOW-UP 10/27/2012 Overview: 32 yo female from [place]. Family involved with care, at bedside. plan to discharge patient home - will arrange with case management for post op care as needed - follow up in OPD in 7-10 days Post-op pain 10/27/2012 12/26/2015 Overview: currently well controlled with [employer]. will start PO pain meds today 10/27. tolerating percocet, pain relatively well controlled. Hodgkin's disease with nodular sclerosis 05/27/2012 12/26/2015 Overview: Oncology history (per Dr. 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 Hodgkin's disease, unspecified 02/05/2012 05/11/2014 Vaginal bleeding 12/26/2015 Overview: --likely from thrombocytopenia. No menses in prior 8 months. Scant amount reported on 03/29 and 03/30, now resolved --monitor bleeding by counting pads --should f/u with her [employer] provider after BMT Premature menopause 12/26/19 16 Postmenopausal atrophic vaginitis 12/26/2015 Dyspareunia 12/26/2015 documented as of this encounter (statuses as of 10/26/2022) [facility] History of Past illness Narrative* Problem Noted Date Diagnosed Date Resolved Date Menorrhagia with regular cycle 03/15/2017 01/01/2018 Overview: Added automatically from request for surgery [id number] History of pulmonary embolism 04/25/2016 01/01/2018 Neoplastic [...] FOLLOW-UP 10/27/2012 Overview: 32 yo female from [place]. Family involved with care, at bedside. plan to discharge patient home - will arrange with case management for post op care as needed - follow up in OPD in 7-10 days Post-op pain 10/27/2012 12/26/2015 Overview: currently well controlled with [employer]. will start PO pain meds today 10/27. tolerating percocet, pain relatively well controlled. Hodgkin's disease with nodular sclerosis 05/27/2012 12/26/2015 Overview: Oncology history (per Dr. 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 Hodgkin's disease, unspecified 02/05/2012 05/11/2014 Vaginal bleeding 12/26/2015 Overview: --likely from thrombocytopenia. No menses in prior 8 months. Scant amount reported on 03/29 and 03/30, now resolved --monitor bleeding by counting pads --should f/u with her [employer] provider after BMT Premature menopause 12/26/19 16 Postmenopausal atrophic vaginitis 12/26/2015 Dyspareunia 12/26/2015 documented as of this encounter (statuses as of 11/06/2022) [facility] History of Past illness Narrative* Problem Noted Date Diagnosed Date Resolved Date Menorrhagia with regular cycle 03/15/2017 01/01/2018 Overview: Added automatically from request for surgery [id number] History of pulmonary embolism 04/25/2016 01/01/2018 Neoplastic [...] FOLLOW-UP 10/27/2012 Overview: 32 yo female from [place]. Family involved with care, at bedside. plan to discharge patient home - will arrange with case management for post op care as needed - follow up in OPD in 7-10 days Post-op pain 10/27/2012 12/26/2015 Overview: currently well controlled with [employer]. will start PO pain meds today 10/27. tolerating percocet, pain relatively well controlled. Hodgkin's disease with nodular sclerosis 05/27/2012 12/26/2015 Overview: Oncology history (per Dr. 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 Hodgkin's disease, unspecified 02/05/2012 05/11/2014 Vaginal bleeding 12/26/2015 Overview: --likely from thrombocytopenia. No menses in prior 8 months. Scant amount reported on 03/29 and 03/30, now resolved --monitor bleeding by counting pads --should f/u with her [employer] provider after BMT Premature menopause 12/26/19 16 Postmenopausal atrophic vaginitis 12/26/2015 Dyspareunia 12/26/2015 documented as of this encounter (statuses as of 11/11/2022) [facility] History of Past illness Narrative* Problem Noted Date Diagnosed Date Resolved Date Menorrhagia with regular cycle 03/15/2017 01/01/2018 Overview: Added automatically from request for surgery [id number] History of pulmonary embolism 04/25/2016 01/01/2018 Neoplastic [...] FOLLOW-UP 10/27/2012 Overview: 32 yo female from [place]. Family involved with care, at bedside. plan to discharge patient home - will arrange with case management for post op care as needed - follow up in OPD in 7-10 days Post-op pain 10/27/2012 12/26/2015 Overview: currently well controlled with [employer]. will start PO pain meds today 9/9. tolerating percocet, pain relatively well controlled. Hodgkin's disease with nodular sclerosis 05/27/2012 12/26/2015 Overview: Oncology history (per Dr. 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 Hodgkin's disease, unspecified 02/05/2012 05/11/2014 Vaginal bleeding 12/26/2015 Overview: --likely from thrombocytopenia. No menses in prior 8 months. Scant amount reported on 03/29 and 03/30, now resolved --monitor bleeding by counting pads --should f/u with her [employer] provider after BMT Premature menopause 12/26/19 16 Postmenopausal atrophic vaginitis 12/26/2015 Dyspareunia 12/26/2015 documented as of this encounter (statuses as of 11/13/2022) [facility] History of Past illness Narrative* Problem Noted Date Diagnosed Date Resolved Date Menorrhagia with regular cycle 03/15/2017 01/01/2018 Overview: Added automatically from request for surgery [id number] History of pulmonary embolism 04/25/2016 01/01/2018 Neoplastic [...] FOLLOW-UP 10/27/2012 Overview: 32 yo female from [place]. Family involved with care, at bedside. plan to discharge patient home - will arrange with case management for post op care as needed - follow up in OPD in 7-10 days Post-op pain 10/27/2012 12/26/2015 Overview: currently well controlled with [employer]. will start PO pain meds today 10/27. tolerating percocet, pain relatively well controlled. Hodgkin's disease with nodular sclerosis 05/27/2012 12/26/2015 Overview: Oncology history (per Dr. 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 Hodgkin's disease, unspecified 02/05/2012 05/11/2014 Vaginal bleeding 12/26/2015 Overview: --likely from thrombocytopenia. No menses in prior 8 months. Scant amount reported on 03/29 and 03/30, now resolved --monitor bleeding by counting pads --should f/u with her [employer] provider after BMT Premature menopause 12/26/19 16 Postmenopausal atrophic vaginitis 12/26/2015 Dyspareunia 12/26/2015 documented as of this encounter (statuses as of 11/26/2022) [facility] History of Past illness Narrative* Problem Noted Date Diagnosed Date Resolved Date Menorrhagia with regular cycle 03/15/2017 01/01/2018 Overview: Added automatically from request for surgery [id number] History of pulmonary embolism 04/25/2016 01/01/2018 Neoplastic (malignant) related fatigue 04/25/2016 01/01/2018 Hidradenitis suppurativa 01/17/2016 Vitamin D deficiency 06/09/2015 016 HyperCKemia 05/06/2015 12/26/2015 Elevated aldolase level 05/06/2015 110 08/2015 Chronic pain of both knees 05/06/2015 [...] FOLLOW-UP 10/27/2012 Overview: 32 yo female from [place]. Family involved with care, at bedside. plan to discharge patient home - will arrange with case management for post op care as needed - follow up in OPD in 7-10 days Post-op pain 10/27/2012 12/26/2015 Overview: currently well controlled with [employer]. will start PO pain meds today 10/27. tolerating percocet, pain relatively well controlled. Hodgkin's disease with nodular sclerosis 05/27/2012 12/26/2015 Overview: Oncology history (per Dr. 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 Hodgkin's disease, unspecified 02/05/2012 05/11/2014 Vaginal bleeding 12/26/2015 Overview: --likely from thrombocytopenia. No menses in prior 8 months. Scant amount reported on 03/29 and 03/30, now resolved --monitor bleeding by counting pads --should f/u with her [employer] provider after BMT Premature menopause 12/26/19 16 Postmenopausal atrophic vaginitis 12/26/2015 Dyspareunia 12/26/2015 documented as of this encounter (statuses as of 12/04/2022) [facility] History of Past illness Narrative* Problem Noted Date Diagnosed Date Resolved Date Menorrhagia with regular cycle 03/15/2017 01/01/2018 Overview: Added automatically from request for surgery [id number] History of pulmonary embolism 04/25/2016 01/01/2018 Neoplastic [...] FOLLOW-UP 10/27/2012 Overview: 32 yo female from [place]. Family involved with care, at bedside. plan to discharge patient home - will arrange with case management for post op care as needed - follow up in OPD in 7-10 days Post-op pain 10/27/2012 12/26/2015 Overview: currently well controlled with [employer]. will start PO pain meds today 10/27. tolerating percocet, pain relatively well controlled. Hodgkin's disease with nodular sclerosis 05/27/2012 12/26/2015 Overview: Oncology history (per Dr. 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 Hodgkin's disease, unspecified 02/05/2012 05/11/2014 Vaginal bleeding 12/26/2015 Overview: --likely from thrombocytopenia. No menses in prior 8 months. Scant amount reported on 03/29 and 03/30, now resolved --monitor bleeding by counting pads --should f/u with her [employer] provider after BMT Premature menopause 12/26/19 16 Postmenopausal atrophic vaginitis 12/26/2015 Dyspareunia 12/26/2015 documented as of this encounter (statuses as of 12/18/2022) [facility] History of Past illness Narrative* Problem Noted Date Diagnosed Date Resolved Date Menorrhagia with regular cycle 03/15/2017 01/01/2018 Overview: Added automatically from request for surgery [id number] History of pulmonary embolism 04/25/2016 01/01/2018 Neoplastic [...] FOLLOW-UP 10/27/2012 Overview: 32 yo female from [place]. Family involved with care, at bedside. plan to discharge patient home - will arrange with case management for post op care as needed - follow up in OPD in 7-10 days Post-op pain 10/27/2012 12/26/2015 Overview: currently well controlled with [employer]. will start PO pain meds today 10/27. tolerating percocet, pain relatively well controlled. Hodgkin's disease with nodular sclerosis 05/27/2012 12/26/2015 Overview: Oncology history (per Dr. 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 Hodgkin's disease, unspecified 02/05/2012 05/11/2014 Vaginal bleeding 12/26/2015 Overview: --likely from thrombocytopenia. No menses in prior 8 months. Scant amount reported on 03/29 and 03/30, now resolved --monitor bleeding by counting pads --should f/u with her [employer] provider after BMT Premature menopause 12/26/19 16 Postmenopausal atrophic vaginitis 12/26/2015 Dyspareunia 12/26/2015 documented as of this encounter (statuses as of 12/31/2022) [facility] of Past illness Narrative* Problem Noted Date Diagnosed Date Resolved Date Menorrhagia with regular cycle 03/15/2017 01/01/2018 Overview: Added automatically from request for surgery [id number] History of pulmonary embolism 04/25/2016 01/01/2018 Neoplastic [...] FOLLOW-UP 10/27/2012 Overview: 32 yo female from [place]. Family involved with care, at bedside. plan to discharge patient home - will arrange with case management for post op care as needed - follow up in OPD in 7-10 days Post-op pain 10/27/2012 12/26/2015 Overview: currently well controlled with [employer]. will start PO pain meds today 10/27. tolerating percocet, pain relatively well controlled. Hodgkin's disease with nodular sclerosis 05/27/2012 12/26/2015 Overview: Oncology history (per Dr. 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 Hodgkin's disease, unspecified 02/05/2012 05/11/2014 Vaginal bleeding 12/26/2015 Overview: --likely from thrombocytopenia. No menses in prior 8 months. Scant amount reported on 03/29 and 03/30, now resolved --monitor bleeding by counting pads --should f/u with her [employer] provider after BMT Premature menopause 12/26/19 16 Postmenopausal atrophic vaginitis 12/26/2015 Dyspareunia 12/26/2015 documented as of this encounter (statuses as of 01/03/2023) [facility] of Past illness Narrative* Problem Noted Date Diagnosed Date Resolved Date Menorrhagia with regular cycle 03/15/2017 01/01/2018 Overview: Added automatically from request for surgery [id number] History of pulmonary embolism 04/25/2016 01/01/2018 Neoplastic (malignant) related fatigue 04/25/2016 01/01/2018 Hidradenitis suppurativa 01/17/2016 Vitamin D deficiency 06/09/2015 016 HyperCKemia 05/06/2015 12/26/2015 Elevated aldolase level 05/06/2015/08/2015 Chronic pain of both knees 05/06/2015 1 [...] FOLLOW-UP 10/27/2012 Overview: 32 yo female from [place]. Family involved with care, at bedside. plan to discharge patient home - will arrange with case management for post op care as needed - follow up in OPD in 7-10 days Post-op pain 10/27/2012 12/26/2015 Overview: currently well controlled with [employer]. will start PO pain meds today 10/27. tolerating percocet, pain relatively well controlled. Hodgkin's disease with nodular sclerosis 05/27/2012 12/26/2015 Overview: Oncology history (per Dr. 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 Hodgkin's disease, unspecified 02/05/2012 05/11/2014 Vaginal bleeding 12/26/2015 Overview: --likely from thrombocytopenia. No menses in prior 8 months. Scant amount reported on 03/29 and 03/30, now resolved --monitor bleeding by counting pads --should f/u with her [employer] provider after BMT Premature menopause 12/26/19 16 Postmenopausal atrophic vaginitis 12/26/2015 Dyspareunia 12/26/2015 documented as of this encounter (statuses as of 01/03/2023) [facility] of Past illness Narrative* Problem Noted Date Diagnosed Date Resolved Date Menorrhagia with regular cycle 03/15/2017 01/01/2018 Overview: Added automatically from request for surgery [id number] History of pulmonary embolism 04/25/2016 01/01/2018 Neoplastic [...] FOLLOW-UP 10/27/2012 Overview: 32 yo female from [place]. Family involved with care, at bedside. plan to discharge patient home - will arrange with case management for post op care as needed - follow up in OPD in 7-10 days Post-op pain 10/27/2012 12/26/2015 Overview: currently well controlled with [employer]. will start PO pain meds today 10/27. tolerating percocet, pain relatively well controlled. Hodgkin's disease with nodular sclerosis 05/27/2012 12/26/2015 Overview: Oncology history (per Dr. 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 Hodgkin's disease, unspecified 02/05/2012 05/11/2014 Vaginal bleeding 12/26/2015 Overview: --likely from thrombocytopenia. No menses in prior 8 months. Scant amount reported on 03/29 and 03/30, now resolved --monitor bleeding by counting pads --should f/u with her [employer] provider after BMT Premature menopause 12/26/19 16 Postmenopausal atrophic vaginitis 12/26/2015 Dyspareunia 12/26/2015 documented as of this encounter (statuses as of 01/07/2023) [facility] [facility] History of Past illness Narrative* Problem Noted Date Diagnosed Date Resolved Date Menorrhagia with regular cycle 03/15/2017 01/01/2018 Overview: Added automatically from request for surgery [id number] History of pulmonary embolism 04/25/2016 01/01/2018 Neoplastic [...] FOLLOW-UP 10/27/2012 Overview: 32 yo female from [place], [place]. Family involved with care, at bedside. plan to discharge patient home - will arrange with case management for post op care as needed - follow up in OPD in 7-10 days Post-op pain 10/27/2012 12/26/2015 Overview: currently well controlled with [employer]/WOMAN. will start PO pain meds today 10/27. tolerating percocet, pain relatively well controlled. Hodgkin's disease with nodular sclerosis 05/27/2012 12/26/2015 Overview: Oncology history (per Dr. 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 Hodgkin's disease, unspecified 02/05/2012 05/11/2014 Vaginal bleeding 12/26/2015 Overview: --likely from thrombocytopenia. No menses in prior 8 months. 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 Nodular sclerosing Hodgkin's lymphoma, 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) 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 [facility] Encounter for palliative care- Primary Nodular sclerosis Hodgkin lymphoma of intrathoracic lymph nodes (HCC) Cancer related pain Neoplasm related pain (acute) (chronic) Chemotherapy-induced neuropathy (HCC) 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 Muscle cramps Cramp of limb Anxiety Anxiety state, unspecified [facility] Nodular sclerosis Hodgkin lymphoma [...] for antineoplastic immunotherapy [facility] Diagnosis 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 Cancer related pain Neoplasm related pain (acute) (chronic) Encounter for palliative care [facility] Diagnosis Nodular sclerosis Hodgkin lymphoma of intrathoracic lymph nodes (HCC) Nausea Nausea alone [facility]* Diagnosis Simple chronic bronchitis (HCC)- Primary Simple chronic bronchitis Restrictive lung disease Other diseases of lung, not elsewhere classified documented in this encounter [facility]* Diagnosis 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 [facility]* Diagnosis Nodular sclerosis Hodgkin lymphoma of intrathoracic lymph nodes (HCC) Nausea Nausea alone [facility]* Diagnosis Muscle cramps Cramp of limb Nodular sclerosing Hodgkin's lymphoma, 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) 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 [facility] Diagnosis 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 Cancer related pain Neoplasm related pain (acute) (chronic) Encounter for palliative care [facility] Diagnosis 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 [facility]* Diagnosis Hidradenitis suppurativa- Primary Hidradenitis Painful skin lesion [facility]* Diagnosis Muscle cramps Cramp of limb Nodular sclerosis classical Hodgkin lymphoma (HCC) Hodgkin's disease, nodular sclerosis, unspecified site, extranodal and solid organ sites [facility]* Diagnosis 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 Cancer related pain Neoplasm related pain (acute) (chronic) Encounter for palliative care documented [facility] this [facility] [employer] Other Evaluation note* Diagnosis 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 documented in this encounter [facility]* Diagnosis Nodular sclerosis Hodgkin lymphoma [...] of left [facility] 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 [facility] Diagnosis Nodular sclerosing Hodgkin's lymphoma, 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) 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 [facility] Diagnosis Simple chronic bronchitis (HCC) Simple chronic bronchitis [facility] [...] of limb [facility] Diagnosis Muscle cramps Cramp of limb Nodular sclerosis classical Hodgkin lymphoma (HCC) Hodgkin's disease, nodular sclerosis, unspecified site, extranodal and solid organ sites [facility] Diagnosis Muscle cramps Cramp of limb Nodular sclerosing Hodgkin's lymphoma, unspecified body region (HCC) [facility] Diagnosis 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 [facility]* Diagnosis Nodular sclerosing Hodgkin's lymphoma, unspecified body region (HCC)- Primary [facility] Diagnosis Nodular sclerosing Hodgkin's lymphoma, unspecified body region (HCC)- Primary History of pulmonary embolism Personal history of pulmonary embolism Chemotherapy-induced neuropathy (HCC) 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 Muscle cramps Cramp of limb [facility] Diagnosis 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 [facility] Diagnosis History of pulmonary embolism Personal history of pulmonary embolism [facility]* Diagnosis 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 Nausea Nausea alone [facility]* Diagnosis 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 [facility] Diagnosis Acne vulgaris- Primary Other acne [facility]* Diagnosis Nodular sclerosing Hodgkin's lymphoma, 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) 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 [facility]* Diagnosis 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 Encounter for antineoplastic immunotherapy Encounter for long-term (current) use of medications Encounter for long-term (current) use of other medications [facility]* Diagnosis Nodular sclerosing Hodgkin's lymphoma, unspecified body region (HCC)- Primary JOE (dyspnea on exertion) Other dyspnea and respiratory abnormality Chronic cough Cough Chest tightness Other chest pain [facility]* Diagnosis Muscle cramps Cramp of limb Nodular sclerosing Hodgkin's lymphoma, unspecified body region (HCC) [facility]* Diagnosis 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 Cancer related pain Neoplasm related pain (acute) (chronic) Encounter for palliative care [facility] Diagnosis 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 [facility]* Diagnosis Nodular sclerosing Hodgkin's lymphoma, 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) 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 [facility]* Diagnosis Muscle cramps Cramp of limb Nodular sclerosis classical Hodgkin lymphoma (HCC) Hodgkin's disease, nodular sclerosis, unspecified site, extranodal and solid organ sites [facility]* Diagnosis Encounter for palliative care- Primary Opioid use agreement exists Encounters for other specified administrative purpose Anxiety Anxiety state, unspecified Cancer related pain Neoplasm related pain (acute) (chronic) 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) Muscle cramps Cramp of limb [facility] Diagnosis 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 Encounter for antineoplastic immunotherapy [facility] Diagnosis History of pulmonary embolism Personal history of pulmonary embolism [facility]* Diagnosis 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 (HCC) Nausea Nausea alone Chemotherapy-induced neuropathy (HCC) 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 [facility] Diagnosis 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 [facility]* Diagnosis 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 Cancer related pain Neoplasm related pain (acute) (chronic) Encounter for palliative care Muscle cramps Cramp of limb Nodular sclerosis classical Hodgkin lymphoma (HCC) Hodgkin's disease, nodular sclerosis, unspecified site, extranodal and solid organ sites [facility] Diagnosis Muscle cramps Cramp of [...] for antineoplastic immunotherapy [facility] Diagnosis 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 Cancer related pain Neoplasm related pain (acute) (chronic) Encounter for palliative care Muscle cramps Cramp of limb Nodular sclerosis classical Hodgkin lymphoma (HCC) Hodgkin's disease, nodular sclerosis, unspecified site, extranodal and solid organ sites [facility]* Diagnosis Muscle cramps Cramp of limb Nodular sclerosing Hodgkin's lymphoma, 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) 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 [facility] Diagnosis Encounter for palliative care- Primary 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 Cancer related pain Neoplasm related pain (acute) (chronic) Muscle cramps Cramp of limb Opioid use agreement exists Encounters for other specified administrative purpose [facility] Diagnosis 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 [facility]* Diagnosis Nodular sclerosing Hodgkin's lymphoma, 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) 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 [facility] Diagnosis NO SHOW- Primary [facility] Diagnosis 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 Uterine leiomyoma, unspecified location [facility]* Diagnosis Muscle cramps Cramp of limb Nodular sclerosis classical Hodgkin lymphoma (HCC) Hodgkin's disease, nodular sclerosis, unspecified site, extranodal and solid organ sites 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 Cancer related pain Neoplasm related pain (acute) (chronic) Encounter for palliative care [facility]* Diagnosis Dyspnea on exertion- Primary Other dyspnea and respiratory abnormality [facility]* Diagnosis 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 Cancer related pain Neoplasm related pain (acute) (chronic) Encounter for palliative care [facility]* Diagnosis Nodular sclerosing Hodgkin's lymphoma, unspecified body region (HCC)- Primary [facility]* Diagnosis Palliative care by specialist- Primary Opioid use agreement exists Encounters for other specified administrative purpose Cancer related pain Neoplasm related pain (acute) (chronic) 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) Muscle cramps Cramp of limb [facility]* Diagnosis Nodular sclerosing Hodgkin's lymphoma, 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) 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 [facility] Diagnosis Chronic cough- Primary Cough Productive cough Cough Dyspnea on exertion Other dyspnea and respiratory abnormality Opacity of lung on imaging study [facility]* Diagnosis Bronchitis- Primary Bronchitis, not specified as acute or chronic Chronic cough Cough [facility]* Diagnosis Muscle cramps Cramp of limb Nodular sclerosing Hodgkin's lymphoma, unspecified body region (HCC) [facility]* Diagnosis Muscle cramps Cramp of [...] due to drugs [facility]* Diagnosis Hidradenitis suppurativa- Primary Hidradenitis Painful skin lesion [facility]* Diagnosis Palliative care by specialist- Primary Nodular sclerosing Hodgkin's lymphoma, unspecified body region (HCC) Cancer related pain Neoplasm related pain (acute) (chronic) Opioid use agreement exists Encounters for other specified administrative purpose Muscle cramps Cramp of limb [facility]* Diagnosis Nodular sclerosis Hodgkin lymphoma of intrathoracic lymph nodes (HCC) Nausea Nausea alone [facility]* Diagnosis 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 Cancer related pain Neoplasm related pain (acute) (chronic) Encounter for palliative care [facility]* Diagnosis Nodular sclerosing Hodgkin's lymphoma, 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) 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 [facility]* Diagnosis History of pulmonary embolism Personal history of pulmonary embolism [facility]* Diagnosis Muscle cramps Cramp of limb Nodular sclerosing Hodgkin's lymphoma, unspecified body region (HCC) [facility]* Diagnosis Nodular sclerosis Hodgkin lymphoma of [...] hypothyroidism Unspecified hypothyroidism [facility]* Diagnosis Muscle cramps Cramp of limb Nodular sclerosing Hodgkin's lymphoma, 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 Cancer related pain Neoplasm related pain (acute) (chronic) Encounter for palliative care documented in this encounter [facility]* Diagnosis 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 Charles [facility] Work Phone: Evaluation note* Diagnosis Chronic cough Cough documented in this encounter [facility]* Diagnosis Bronchitis Bronchitis, not specified as acute or chronic documented in this encounter [facility]* Diagnosis Restrictive lung disease- Primary Other diseases of lung, not elsewhere classified Chronic cough Cough Post-nasal drip Postnasal drip Hoarseness Dysphonia Dysphagia, unspecified type History of pulmonary embolism Personal history of pulmonary embolism documented in this encounter [facility]* Diagnosis Bronchitis, not specified as acute or chronic- Primary Chronic cough Cough documented in this encounter [facility]* Diagnosis COVID-19- Primary [facility] Diagnosis COVID-19 [facility]* Diagnosis 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 documented in this encounter [facility] general Narrative - [facility]NortGeising[facility] Other History general Narrative - Reported* Type Description Date Medical History Hodgkin lymphoma of lymph nodes of neck, unspecified Hodgkin lymphoma type Medical History Hypothyroid Medical History Tachycardia Medical History Neuropathy Medical History Pulmonary embolism Medical History 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 Surgical History biopsy Hospitalization History she has had several stay s for her dx [facility] Other Reason for referral (narrative)* Diagnostic Procedure Only (Routine) - Authorized Specialty Diagnoses / Procedures Referred By Contac t Referred To Contact [facility] Diagnoses Hodgkin lymphoma, unspecified Hodgkin lymphoma type, unspecified body region (HCC) Nodular sclerosis Hodgkin lymphoma of intrathoracic lymph nodes (HCC) Procedures NM PET/CT SKULL-THIGH SUBSEQUENT PET IMAGING CT ATTENUATION [place] [address] [place] [address] Molecular & Functional [facility] [address] [place] [address] Referral ID Status Reason Start Date Expiration Date Visits Requested Visits Authorized [id number] Authorized Auto-Generat ed Referral 06/14/2021 07/14/2022 1 1 [facility] for referral (narrative)* Diagnostic Procedure Only (Routine) - Authorized Specialty Diagnoses / Procedures Referred By Contac t Referred To Contact [facility]CULAR [facility]CTIONAL [facility]AG[facility] Diagnoses Nodular sclerosing Hodgkin's lymphoma, unspecified body region (HCC) Procedures NM PET/CT SKULL-THIGH SUBSEQUENT PET IMAGING CT ATTENUATION [place] [address] [place] [address] [facility] [address] [place] [address] Referral ID Status Reason Start Date Expiration Date Visits Requested Visits Authorized [id number] Authorized Auto-Generat ed Referral 11/15/2021 12/15/2022 1 1 [facility] for referral (narrative)* Outpatient Procedure (Routine) - Pending Review Specialty Diagnoses / Procedures Referred By Contac t Referred To Contact [facility] Diagnoses Nodular sclerosing Hodgkin's lymphoma, unspecified body region (HCC) JOE (dyspnea on exertion) Chronic cough Procedures ECHO ECHO TTHRC R-T 2D W/WOM-MODE COMPL SPEC&COLR D Sylvia Mancilla APRN.CNP [address] [place] [address] [facility] [place] [address] [place] [address] Referral ID Status Reason Start Date Expiration Date Visits Requested Visits Authorized [id number] Pending Review Auto-Generat ed Referral 12/27/2021 12/27/2022 1 1 [facility] for referral (narrative)* Diagnostic Procedure Only (Routine) - Pending Review Specialty Diagnoses / Procedures Referred By Contac t Referred To Contact MOLECULAR & FUNCTIONAL IMAGING Diagnoses Nodular sclerosing Hodgkin's lymphoma, unspecified body region (HCC) Procedures NM PET/CT SKULL-THIGH SUBSEQUENT PET IMAGING CT ATTENUATION [place] [address] [place] [id number] Molecular & Functional Imaging [address] [place] [id number] Referral ID Status Reason Start Date Expiration Date Visits Requested Visits Authorized [id number] Pending Review Auto-Generat ed Referral 07/18/2022 08/17/2023 1 1 [facility] for referral (narrative)* Outpatient Procedure (Routine) - Authorized Specialty Diagnoses / Procedures Referred By Contac t Referred To Contact RESPIRATORY ENSIGN Diagnoses Bronchitis Procedures NITRIC OXIDE, EXHALED NITRIC OXIDE GAS DETERMINATION Ella Chan APRN.CNP [address] [place] [address] [facility] [place] [address] [place] [address] Referral ID Status Reason Start Date Expiration Date Visits Requested Visits Authorized [id number] Authorized Auto-Generat ed Referral 08/02/2022 09/01/2023 1 1 * Outpatient Procedure (Routine) - Authorized Specialty Diagnoses / Procedures [facility] RESPIRATORY ENSIGN Diagnoses Chronic cough Procedures LUNG DIFFUSION CAPACITY (DLCO) DIFFUSING CAPACITY Ella Chan APRN.CNP [id number] [place] [address] Referral ID Status Reason Start Date Expiration Date Visits Requested Visits Authorized [id number] Authorized Auto-Generat ed Referral 08/02/2022 09/01/2023 1 1 * Outpatient Procedure (Routine) - Authorized Specialty Diagnoses / Procedures Referred By Contac t Referred To [facility] Diagnoses Chronic cough Procedures SPIROMETRY - BASELINE AND POST DILATOR BRNCDILAT RSPSE SPMTRY PRE&POST-BRNCDILAT Ella Zurita APRN.CNP [address] [place] [address] [facility] [place] [address] [place] [address] Referral ID Status Reason Start Date Expiration Date Visits Requested Visits Authorized [id number] Authorized Auto-Generat ed Referral 08/02/2022 09/01/2023 1 1 [facility] for referral (narrative)* Diagnostic Procedure Only (Routine) - Pending Review Specialty Diagnoses / Procedures Referred By Contac t Referred To Contact MOLECULAR & FUNCTIONAL IMAGING 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) Procedures NM PET/CT SKULL-THIGH SUBSEQUENT PET IMAGING CT ATTENUATION SKULL [place] [address] [address] [id number] Molecular & Functional Imaging [address] [place] [address] Referral ID Status Reason Start Date Expiration Date Visits Requested Visits Authorized [id number] Pending Review Auto-Generat ed Referral 08/22/2022 09/21/2023 1 1 [facility] for referral (narrative)* Diagnostic Procedure Only (Routine) - Authorized Specialty Diagnoses / Procedures Referred By Contac t Referred To Contact MOLECULAR & FUNCTIONAL IMAGING Diagnoses 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) Procedures NM PET/CT SKULL-THIGH SUBSEQUENT PET IMAGING CT ATTENUATION SKULL BASE MID-THIGH Alexsander Ledezma MD [address] [place] [address] [place] [address] Molecular & Functional Imaging [address] [place] [address] Referral ID Status Reason Start Date Expiration Date Visits Requested Visits Authorized [id number] Authorized Auto-Generat ed Referral 01/31/2024 1 1 [facility] Summary Purpose Family History No Family History Records FoundNo Family History Records FoundNo Family History Records FoundNo Family History Records FoundNo Family History Records FoundNo Family History Records FoundNo Family History Records FoundNo Family History Records FoundNo Family History Records FoundNo Family History Records Found Advance Directives No Advanced Directives Records FoundDocuments on File Type Date Recorded 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 Advance Directive(s) 09/30/2017 12:34 PM Advance Directive(s) 04/16/2016 9:44 PM Advance Directive(s) 01/28/2016 8:20 PM Documents on File Type Date Recorded 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 Advance Directive(s) 09/30/2017 12:34 PM Advance Directive(s) 04/16/2016 9:44 PM Advance Directive(s) 01/28/2016 8:20 PM Documents on File Type Date Recorded 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 Advance Directive(s) 09/20/2021 8:56 PM [...] 1 dose, On Sat07/26/21 at 1100, Expires: 6.9 1100 RF Administer with 0.2 [...] 10 mg, INTRALESIONAL, ONCE, 1 dose, On Sat09/05/21 at 1830 Given 09/05/2021 6:30 PM EDT [...] 10 mg, INTRALESIONAL, ONCE, 1 dose, On Sat10/18/22 at 1030, 0.1-0.5 ml of 10 mg [...] type Hoarseness Procedures CONSULT TO ENT OFFICE/OUTPATIENT NEW HIGH MDM 60 MINUTES Kylie Nunes, EDUCATIONAL RESOURCE COORDINATOR.STATE COMP[employer]OLLER [address] [place] [address] Referral ID Status Reason Start Date Expiration Date Visits Requested Visits Authorized [id number] Authorized PCP Requested Referral 03/28/2023 03/27/2024 1 1 Specialty Diagnoses / Procedures Referred By Contac t Referred To Contact CT IMAGING Diagnoses Acute cough Procedures CT CHEST WO IVCON DIAGNOSTIC COMPUTED TOMOGRAPHY THORAX W/[place] [address] [place] [address] [address] [facility] Referral ID Status Reason Start Date Expiration Date V isits Requested Visits Authorized [id number] Closed Auto-Generate d Referral 05/22/2022 06/21/2023 1 1 Additional Source Comments INFORMATION SOURCE (unrecogn ized section and content) DATE CREATED AUTHOR 03/03/2019 [facility] DATE CREATED AUTHOR AUTHOR'S ORGANIZ ATION 09/22/2019 [facility] DATE CREATED AUTHOR AUTHOR'S ORGANIZ ATION 04/19/2021 [facility] DATE CREATED AUTHOR AUTHOR'S ORGANIZ ATION 07/08/2021 [facility] DATE CREATED AUTHOR AUTHOR'S ORGANIZ ATION 09/26/2021 [facility] DATE CREATED AUTHOR AUTHOR'S ORGANIZ ATION 06/23/2022 [facility] DATE CREATED AUTHOR AUTHOR'S ORGANIZ ATION 10/19/2022 [facility] DATE CREATED AUTHOR AUTHOR'S ORGANIZ ATION 03/29/2023 [facility] DATE CREATED AUTHOR AUTHOR'S ORGANIZ ATION 03/31/2023 [facility] DATE CREATED AUTHOR AUTHOR'S ORGANIZ ATION 04/02/2023 [facility] Source Comments (unrecognize d section and content) In the event this informatio n is protected by the Federal Confidentiality of Alcohol and Drug Abuse Patient Records regulations: The Federal rules restrict any use of the information to criminally investigate or prosecute any alcohol or drug abuse patient.[facility] the event this information is protected by the Federal Confidentiality of Alcohol and Drug Abuse Patient Records regulations: The Federal rules restrict any use of the information to criminally investigate or prosecute any alcohol or drug abuse patient.[facility] the event this information is protected by the Federal Confidentiality of Alcohol and Drug Abuse Patient Records regulations: The Federal rules restrict any use of the information to criminally investigate or prosecute any alcohol or drug abuse patient.[facility] the event this information is protected by the Federal Confidentiality of Alcohol and Drug Abuse Patient Records regulations: The Federal rules restrict any use of the information to criminally investigate or prosecute any alcohol or drug abuse patient.[facility] the event this information is protected by the Federal Confidentiality of Alcohol and Drug Abuse Patient Records regulations: The Federal rules restrict any use of the information to criminally investigate or prosecute any alcohol or drug abuse patient.[facility] the event this information is protected by the Federal Confidentiality of Alcohol and Drug Abuse Patient Records regulations: The Federal rules restrict any use of the information to criminally investigate or prosecute any alcohol or drug abuse patient.[facility] the event this information is protected by the Federal Confidentiality of Alcohol and Drug Abuse Patient Records regulations: The Federal rules restrict any use of the information to criminally investigate or prosecute any alcohol or drug abuse patient.[facility] the event this information is protected by the Federal Confidentiality of Alcohol and Drug Abuse Patient Records regulations: The Federal rules restrict any use of the information to criminally investigate or prosecute any alcohol or drug abuse patient.[facility] the event this information is protected by the Federal Confidentiality of Alcohol and Drug Abuse Patient Records regulations: The Federal rules restrict any use of the information to criminally investigate or prosecute any alcohol or drug abuse patient.[facility] the event this information is protected by the Federal Confidentiality of Alcohol and Drug Abuse Patient Records regulations: The Federal rules restrict any use of the information to criminally investigate or prosecute any alcohol or drug abuse patient.[facility]In the event this information is protected by the Federal Confidentiality of Alcohol and Drug Abuse Patient Records regulations: The Federal rules restrict any use of the information to criminally investigate or prosecute any alcohol or drug abuse patient.[facility] the event this information is protected by the Federal Confidentiality of Alcohol and Drug Abuse Patient Records regulations: The Federal rules restrict any use of the information to criminally investigate or prosecute any alcohol or drug abuse patient.[facility]In the event this information is protected by the Federal Confidentiality of Alcohol and Drug Abuse Patient Records regulations: The Federal rules restrict any use of the information to criminally investigate or prosecute any alcohol or drug abuse patient.[facility] the event this information is protected by the Federal Confidentiality of Alcohol and Drug Abuse Patient Records regulations: The Federal rules restrict any use of the information to criminally investigate or prosecute any alcohol or drug abuse patient.[facility]In the event this information is protected by the Federal Confidentiality of Alcohol and Drug Abuse Patient Records regulations: The Federal rules restrict any use of the information to criminally investigate or prosecute any alcohol or drug abuse patient.[facility] HospitalIn the event this information is protected by the Federal Confidentiality of Alcohol and Drug Abuse Patient Records regulations: The Federal rules restrict any use of the information to criminally investigate or prosecute any alcohol or drug abuse patient.[facility]In the event this information is protected by the Federal Confidentiality of Alcohol and Drug Abuse Patient Records regulations: The Federal rules restrict any use of the information to criminally investigate or prosecute any alcohol or drug abuse patient.[facility] HospitalIn the event this information is protected by the Federal Confidentiality of Alcohol and Drug Abuse Patient Records regulations: The Federal rules restrict any use of the information to criminally investigate or prosecute any alcohol or drug abuse patient.[facility] HospitalIn the event this information is protected by the Federal Confidentiality of Alcohol and Drug Abuse Patient Records regulations: The Federal rules restrict any use of the information to criminally investigate or prosecute any alcohol or drug abuse patient.[facility] HospitalIn the event this information is protected by the Federal Confidentiality of Alcohol and Drug Abuse Patient Records regulations: The Federal rules restrict any use of the information to criminally investigate or prosecute any alcohol or drug abuse patient.[facility] HospitalIn the event this information is protected by the Federal Confidentiality of Alcohol and Drug Abuse Patient Records regulations: The Federal rules restrict any use of the information to criminally investigate or prosecute any alcohol or drug abuse patient.[facility] HospitalIn the event this information is protected by the Federal Confidentiality of Alcohol and Drug Abuse Patient Records regulations: The Federal rules restrict any use of the information to criminally investigate or prosecute any alcohol or drug abuse patient.[facility] HospitalIn the event this information is protected by the Federal Confidentiality of Alcohol and Drug Abuse Patient Records regulations: The Federal rules restrict any use of the information to criminally investigate or prosecute any alcohol or drug abuse patient.[facility] HospitalIn the event this information is protected by the Federal Confidentiality of Alcohol and Drug Abuse Patient Records regulations: The Federal rules restrict any use of the information to criminally investigate or prosecute any alcohol or drug abuse patient.[facility] HospitalIn the event this information is protected by the Federal Confidentiality of Alcohol and Drug Abuse Patient Records regulations: The Federal rules restrict any use of the information to criminally investigate or prosecute any alcohol or drug abuse patient.[facility] HospitalIn the event this information is protected by the Federal Confidentiality of Alcohol and Drug Abuse Patient Records regulations: The Federal rules restrict any use of the information to criminally investigate or prosecute any alcohol or drug abuse patient.[facility] HospitalIn the event this information is protected by the Federal Confidentiality of Alcohol and Drug Abuse Patient Records regulations: The Federal rules restrict any use of the information to criminally investigate or prosecute any alcohol or drug abuse patient.[facility] HospitalIn the event this information is protected by the Federal Confidentiality of Alcohol and Drug Abuse Patient Records regulations: The Federal rules restrict any use of the information to criminally investigate or prosecute any alcohol or drug abuse patient.[facility] HospitalIn the event this information is protected by the Federal Confidentiality of Alcohol and Drug Abuse Patient Records regulations: The Federal rules restrict any use of the information to criminally investigate or prosecute any alcohol or drug abuse patient.[facility] HospitalIn the event this information is protected by the Federal Confidentiality of Alcohol and Drug Abuse Patient Records regulations: The Federal rules restrict any use of the information to criminally investigate or prosecute any alcohol or drug abuse patient.[facility] HospitalIn the event this information is protected by the Federal Confidentiality of Alcohol and Drug Abuse Patient Records regulations: The Federal rules restrict any use of the information to criminally investigate or prosecute any alcohol or drug abuse patient.[facility] HospitalIn the event this information is protected by the Federal Confidentiality of Alcohol and Drug Abuse Patient Records regulations: The Federal rules restrict any use of the information to criminally investigate or prosecute any alcohol or drug abuse patient.[facility] HospitalIn the event this information is protected by the Federal Confidentiality of Alcohol and Drug Abuse Patient Records regulations: The Federal rules restrict any use of the information to criminally investigate or prosecute any alcohol or drug abuse patient.[facility] HospitalIn the event this information is protected by the Federal Confidentiality of Alcohol and Drug Abuse Patient Records regulations: The Federal rules restrict any use of the information to criminally investigate or prosecute any alcohol or drug abuse patient.[facility] HospitalIn the event this information is protected by the Federal Confidentiality of Alcohol and Drug Abuse Patient Records regulations: The Federal rules restrict any use of the information to criminally investigate or prosecute any alcohol or drug abuse patient.[facility] HospitalIn the event this information is protected by the Federal Confidentiality of Alcohol and Drug Abuse Patient Records regulations: The Federal rules restrict any use of the information to criminally investigate or prosecute any alcohol or drug abuse patient.[facility] HospitalIn the event this information is protected by the Federal Confidentiality of Alcohol and Drug Abuse Patient Records regulations: The Federal rules restrict any use of the information to criminally investigate or prosecute any alcohol or drug abuse patient.[facility] HospitalIn the event this information is protected by the Federal Confidentiality of Alcohol and Drug Abuse Patient Records regulations: The Federal rules restrict any use of the information to criminally investigate or prosecute any alcohol or drug abuse patient.[facility] HospitalIn the event this information is protected by the Federal Confidentiality of Alcohol and Drug Abuse Patient Records regulations: The Federal rules restrict any use of the information to criminally investigate or prosecute any alcohol or drug abuse patient.[facility] HospitalIn the event this information is protected by the Federal Confidentiality of Alcohol and Drug Abuse Patient Records regulations: The Federal rules restrict any use of the information to criminally investigate or prosecute any alcohol or drug abuse patient.[facility] HospitalIn the event this information is protected by the Federal Confidentiality of Alcohol and Drug Abuse Patient Records regulations: The Federal rules restrict any use of the information to criminally investigate or prosecute any alcohol or drug abuse patient.[facility] HospitalIn the event this information is protected by the Federal Confidentiality of Alcohol and Drug Abuse Patient Records regulations: The Federal rules restrict any use of the information to criminally investigate or prosecute any alcohol or drug abuse patient.[facility] HospitalIn the event this information is protected by the Federal Confidentiality of Alcohol and Drug Abuse Patient Records regulations: The Federal rules restrict any use of the information to criminally investigate or prosecute any alcohol or drug abuse patient.[facility] the event this information is protected by the Federal Confidentiality of Alcohol and Drug Abuse Patient Records regulations: The Federal rules restrict any use of the information to criminally investigate or prosecute any alcohol or drug abuse patient.[facility] HospitalIn the event this information is protected by the Federal Confidentiality of Alcohol and Drug Abuse Patient Records regulations: The Federal rules restrict any use of the information to criminally investigate or prosecute any alcohol or drug abuse patient.[facility] HospitalIn the event this information is protected by the Federal Confidentiality of Alcohol and Drug Abuse Patient Records regulations: The Federal rules restrict any use of the information to criminally investigate or prosecute any alcohol or drug abuse patient.[facility] the event this information is protected by the Federal Confidentiality of Alcohol and Drug Abuse Patient Records regulations: The Federal rules restrict any use of the information to criminally investigate or prosecute any alcohol or drug abuse patient.[facility] HospitalIn the event this information is protected by the Federal Confidentiality of Alcohol and Drug Abuse Patient Records regulations: The Federal rules restrict any use of the information to criminally investigate or prosecute any alcohol or drug abuse patient.[facility] HospitalIn the event this information is protected by the Federal Confidentiality of Alcohol and Drug Abuse Patient Records regulations: The Federal rules restrict any use of the information to criminally investigate or prosecute any alcohol or drug abuse patient.[facility] HospitalIn the event this information is protected by the Federal Confidentiality of Alcohol and Drug Abuse Patient Records regulations: The Federal rules restrict any use of the information to criminally investigate or prosecute any alcohol or drug abuse patient.[facility] HospitalIn the event this information is protected by the Federal Confidentiality of Alcohol and Drug Abuse Patient Records regulations: The Federal rules restrict any use of the information to criminally investigate or prosecute any alcohol or drug abuse patient.[facility] HospitalIn the event this information is protected by the Federal Confidentiality of Alcohol and Drug Abuse Patient Records regulations: The Federal rules restrict any use of the information to criminally investigate or prosecute any alcohol or drug abuse patient.[facility] HospitalIn the event this information is protected by the Federal Confidentiality of Alcohol and Drug Abuse Patient Records regulations: The Federal rules restrict any use of the information to criminally investigate or prosecute any alcohol or drug abuse patient.[facility] HospitalIn the event this information is protected by the Federal Confidentiality of Alcohol and Drug Abuse Patient Records regulations: The Federal rules restrict any use of the information to criminally investigate or prosecute any alcohol or drug abuse patient.[facility] HospitalIn the event this information is protected by the Federal Confidentiality of Alcohol and Drug Abuse Patient Records regulations: The Federal rules restrict any use of the information to criminally investigate or prosecute any alcohol or drug abuse patient.[facility] HospitalIn the event this information is protected by the Federal Confidentiality of Alcohol and Drug Abuse Patient Records regulations: The Federal rules restrict any use of the information to criminally investigate or prosecute any alcohol or drug abuse patient.[facility] HospitalIn the event this information is protected by the Federal Confidentiality of Alcohol and Drug Abuse Patient Records regulations: The Federal rules restrict any use of the information to criminally investigate or prosecute any alcohol or drug abuse patient.[facility] HospitalIn the event this information is protected by the Federal Confidentiality of Alcohol and Drug Abuse Patient Records regulations: The Federal rules restrict any use of the information to criminally investigate or prosecute any alcohol or drug abuse patient.[facility] HospitalIn the event this information is protected by the Federal Confidentiality of Alcohol and Drug Abuse Patient Records regulations: The Federal rules restrict any use of the information to criminally investigate or prosecute any alcohol or drug abuse patient.[facility] HospitalIn the event this information is protected by the Federal Confidentiality of Alcohol and Drug Abuse Patient Records regulations: The Federal rules restrict any use of the information to criminally investigate or prosecute any alcohol or drug abuse patient.[facility] HospitalIn the event this information is protected by the Federal Confidentiality of Alcohol and Drug Abuse Patient Records regulations: The Federal rules restrict any use of the information to criminally investigate or prosecute any alcohol or drug abuse patient.[facility] HospitalIn the event this information is protected by the Federal Confidentiality of Alcohol and Drug Abuse Patient Records regulations: The Federal rules restrict any use of the information to criminally investigate or prosecute any alcohol or drug abuse patient.[facility] HospitalIn the event this information is protected by the Federal Confidentiality of Alcohol and Drug Abuse Patient Records regulations: The Federal rules restrict any use of the information to criminally investigate or prosecute any alcohol or drug abuse patient.[facility] HospitalIn the event this information is protected by the Federal Confidentiality of Alcohol and Drug Abuse Patient Records regulations: The Federal rules restrict any use of the information to criminally investigate or prosecute any alcohol or drug abuse patient.[facility] HospitalIn the event this information is protected by the Federal Confidentiality of Alcohol and Drug Abuse Patient Records regulations: The Federal rules restrict any use of the information to criminally investigate or prosecute any alcohol or drug abuse patient.[facility] HospitalIn the event this information is protected by the Federal Confidentiality of Alcohol and Drug Abuse Patient Records regulations: The Federal rules restrict any use of the information to criminally investigate or prosecute any alcohol or drug abuse patient.[facility] HospitalIn the event this information is protected by the Federal Confidentiality of Alcohol and Drug Abuse Patient Records regulations: The Federal rules restrict any use of the information to criminally investigate or prosecute any alcohol or drug abuse patient.[facility] HospitalIn the event this information is protected by the Federal Confidentiality of Alcohol and Drug Abuse Patient Records regulations: The Federal rules restrict any use of the information to criminally investigate or prosecute any alcohol or drug abuse patient.[facility] HospitalIn the event this information is protected by the Federal Confidentiality of Alcohol and Drug Abuse Patient Records regulations: The Federal rules restrict any use of the information to criminally investigate or prosecute any alcohol or drug abuse patient.[facility] HospitalIn the event this information is protected by the Federal Confidentiality of Alcohol and Drug Abuse Patient Records regulations: The Federal rules restrict any use of the information to criminally investigate or prosecute any alcohol or drug abuse patient.[facility] HospitalIn the event this information is protected by the Federal Confidentiality of Alcohol and Drug Abuse Patient Records regulations: The Federal rules restrict any use of the information to criminally investigate or prosecute any alcohol or drug abuse patient.[facility] HospitalIn the event this information is protected by the Federal Confidentiality of Alcohol and Drug Abuse Patient Records regulations: The Federal rules restrict any use of the information to criminally investigate or prosecute any alcohol or drug abuse patient.[facility] HospitalIn the event this information is protected by the Federal Confidentiality of Alcohol and Drug Abuse Patient Records regulations: The Federal rules restrict any use of the information to criminally investigate or prosecute any alcohol or drug abuse patient.[facility] HospitalIn the event this information is protected by the Federal Confidentiality of Alcohol and Drug Abuse Patient Records regulations: The Federal rules restrict any use of the information to criminally investigate or prosecute any alcohol or drug abuse patient.[facility] HospitalIn the event this information is protected by the Federal Confidentiality of Alcohol and Drug Abuse Patient Records regulations: The Federal rules restrict any use of the information to criminally investigate or prosecute any alcohol or drug abuse patient.[facility] HospitalIn the event this information is protected by the Federal Confidentiality of Alcohol and Drug Abuse Patient Records regulations: The Federal rules restrict any use of the information to criminally investigate or prosecute any alcohol or drug abuse patient.[facility] HospitalIn the event this information is protected by the Federal Confidentiality of Alcohol and Drug Abuse Patient Records regulations: The Federal rules restrict any use of the information to criminally investigate or prosecute any alcohol or drug abuse patient.[facility] HospitalIn the event this information is protected by the Federal Confidentiality of Alcohol and Drug Abuse Patient Records regulations: The Federal rules restrict any use of the information to criminally investigate or prosecute any alcohol or drug abuse patient.[facility] HospitalIn the event this information is protected by the Federal Confidentiality of Alcohol and Drug Abuse Patient Records regulations: The Federal rules restrict any use of the information to criminally investigate or prosecute any alcohol or drug abuse patient.[facility] HospitalIn the event this information is protected by the Federal Confidentiality of Alcohol and Drug Abuse Patient Records regulations: The Federal rules restrict any use of the information to criminally investigate or prosecute any alcohol or drug abuse patient.[facility] HospitalIn the event this information is protected by the Federal Confidentiality of Alcohol and Drug Abuse Patient Records regulations: The Federal rules restrict any use of the information to criminally investigate or prosecute any alcohol or drug abuse patient.[facility] HospitalIn the event this information is protected by the Federal Confidentiality of Alcohol and Drug Abuse Patient Records regulations: The Federal rules restrict any use of the information to criminally investigate or prosecute any alcohol or drug abuse patient.[facility] HospitalIn the event this information is protected by the Federal Confidentiality of Alcohol and Drug Abuse Patient Records regulations: The Federal rules restrict any use of the information to criminally investigate or prosecute any alcohol or drug abuse patient.[facility] HospitalIn the event this information is protected by the Federal Confidentiality of Alcohol and Drug Abuse Patient Records regulations: The Federal rules restrict any use of the information to criminally investigate or prosecute any alcohol or drug abuse patient.[facility] HospitalIn the event this information is protected by the Federal Confidentiality of Alcohol and Drug Abuse Patient Records regulations: The Federal rules restrict any use of the information to criminally investigate or prosecute any alcohol or drug abuse patient.[facility] HospitalIn the event this information is protected by the Federal Confidentiality of Alcohol and Drug Abuse Patient Records regulations: The Federal rules restrict any use of the information to criminally investigate or prosecute any alcohol or drug abuse patient.[facility] HospitalIn the event this information is protected by the Federal Confidentiality of Alcohol and Drug Abuse Patient Records regulations: The Federal rules restrict any use of the information to criminally investigate or prosecute any alcohol or drug abuse patient.[facility] HospitalIn the event this information is protected by the Federal Confidentiality of Alcohol and Drug Abuse Patient Records regulations: The Federal rules restrict any use of the information to criminally investigate or prosecute any alcohol or drug abuse patient.[facility] HospitalIn the event this information is protected by the Federal Confidentiality of Alcohol and Drug Abuse Patient Records regulations: The Federal rules restrict any use of the information to criminally investigate or prosecute any alcohol or drug abuse patient.[facility] HospitalIn the event this information is protected by the Federal Confidentiality of Alcohol and Drug Abuse Patient Records regulations: The Federal rules restrict any use of the information to criminally investigate or prosecute any alcohol or drug abuse patient.[facility] HospitalIn the event this information is protected by the Federal Confidentiality of Alcohol and Drug Abuse Patient Records regulations: The Federal rules restrict any use of the information to criminally investigate or prosecute any alcohol or drug abuse patient.[facility] HospitalIn the event this information is protected by the Federal Confidentiality of Alcohol and Drug Abuse Patient Records regulations: The Federal rules restrict any use of the information to criminally investigate or prosecute any alcohol or drug abuse patient.[facility] HospitalIn the event this information is protected by the Federal Confidentiality of Alcohol and Drug Abuse Patient Records regulations: The Federal rules restrict any use of the information to criminally investigate or prosecute any alcohol or drug abuse patient.[facility] the event this information is protected by the Federal Confidentiality of Alcohol and Drug Abuse Patient Records regulations: The Federal rules restrict any use of the information to criminally investigate or prosecute any alcohol or drug abuse patient.[facility] HospitalIn the event this information is protected by the Federal Confidentiality of Alcohol and Drug Abuse Patient Records regulations: The Federal rules restrict any use of the information to criminally investigate or prosecute any alcohol or drug abuse patient.[facility] HospitalIn the event this information is protected by the Federal Confidentiality of Alcohol and Drug Abuse Patient Records regulations: The Federal rules restrict any use of the information to criminally investigate or prosecute any alcohol or drug abuse patient.[facility]In the event this information is protected by the Federal Confidentiality of Alcohol and Drug Abuse Patient Records regulations: The Federal rules restrict any use of the information to criminally investigate or prosecute any alcohol or drug abuse patient.[facility] HospitalIn the event this information is protected by the Federal Confidentiality of Alcohol and Drug Abuse Patient Records regulations: The Federal rules restrict any use of the information to criminally investigate or prosecute any alcohol or drug abuse patient.[facility] HospitalIn the event this information is protected by the Federal Confidentiality of Alcohol and Drug Abuse Patient Records regulations: The Federal rules restrict any use of the information to criminally investigate or prosecute any alcohol or drug abuse patient.[facility] HospitalIn the event this information is protected by the Federal Confidentiality of Alcohol and Drug Abuse Patient Records regulations: The Federal rules restrict any use of the information to criminally investigate or prosecute any alcohol or drug abuse patient.[facility] HospitalIn the event this information is protected by the Federal Confidentiality of Alcohol and Drug Abuse Patient Records regulations: The Federal rules restrict any use of the information to criminally investigate or prosecute any alcohol or drug abuse patient.[facility] HospitalIn the event this information is protected by the Federal Confidentiality of Alcohol and Drug Abuse Patient Records regulations: The Federal rules restrict any use of the information to criminally investigate or prosecute any alcohol or drug abuse patient.[facility] HospitalIn the event this information is protected by the Federal Confidentiality of Alcohol and Drug Abuse Patient Records regulations: The Federal rules restrict any use of the information to criminally investigate or prosecute any alcohol or drug abuse patient.[facility] HospitalIn the event this information is protected by the Federal Confidentiality of Alcohol and Drug Abuse Patient Records regulations: The Federal rules restrict any use of the information to criminally investigate or prosecute any alcohol or drug abuse patient.[facility] HospitalIn the event this information is protected by the Federal Confidentiality of Alcohol and Drug Abuse Patient Records regulations: The Federal rules restrict any use of the information to criminally investigate or prosecute any alcohol or drug abuse patient.[facility] HospitalIn the event this information is protected by the Federal Confidentiality of Alcohol and Drug Abuse Patient Records regulations: The Federal rules restrict any use of the information to criminally investigate or prosecute any alcohol or drug abuse patient.[facility] HospitalIn the event this information is protected by the Federal Confidentiality of Alcohol and Drug Abuse Patient Records regulations: The Federal rules restrict any use of the information to criminally investigate or prosecute any alcohol or drug abuse patient.[facility] HospitalIn the event this information is protected by the Federal Confidentiality of Alcohol and Drug Abuse Patient Records regulations: The Federal rules restrict any use of the information to criminally investigate or prosecute any alcohol or drug abuse patient.[facility] HospitalIn the event this information is protected by the Federal Confidentiality of Alcohol and Drug Abuse Patient Records regulations: The Federal rules restrict any use of the information to criminally investigate or prosecute any alcohol or drug abuse patient.[facility] HospitalIn the event this information is protected by the Federal Confidentiality of Alcohol and Drug Abuse Patient Records regulations: The Federal rules restrict any use of the information to criminally investigate or prosecute any alcohol or drug abuse patient.[facility] HospitalIn the event this information is protected by the Federal Confidentiality of Alcohol and Drug Abuse Patient Records regulations: The Federal rules restrict any use of the information to criminally investigate or prosecute any alcohol or drug abuse patient.[facility] HospitalIn the event this information is protected by the Federal Confidentiality of Alcohol and Drug Abuse Patient Records regulations: The Federal rules restrict any use of the information to criminally investigate or prosecute any alcohol or drug abuse patient.[facility] HospitalIn the event this information is protected by the Federal Confidentiality of Alcohol and Drug Abuse Patient Records regulations: The Federal rules restrict any use of the information to criminally investigate or prosecute any alcohol or drug abuse patient.[facility] HospitalIn the event this information is protected by the Federal Confidentiality of Alcohol and Drug Abuse Patient Records regulations: The Federal rules restrict any use of the information to criminally investigate or prosecute any alcohol or drug abuse patient.[facility] HospitalIn the event this information is protected by the Federal Confidentiality of Alcohol and Drug Abuse Patient Records regulations: The Federal rules restrict any use of the information to criminally investigate or prosecute any alcohol or drug abuse patient.[facility] HospitalIn the event this information is protected by the Federal Confidentiality of Alcohol and Drug Abuse Patient Records regulations: The Federal rules restrict any use of the information to criminally investigate or prosecute any alcohol or drug abuse patient.[facility] HospitalIn the event this information is protected by the Federal Confidentiality of Alcohol and Drug Abuse Patient Records regulations: The Federal rules restrict any use of the information to criminally investigate or prosecute any alcohol or drug abuse patient.[facility] HospitalIn the event this information is protected by the Federal Confidentiality of Alcohol and Drug Abuse Patient Records regulations: The Federal rules restrict any use of the information to criminally investigate or prosecute any alcohol or drug abuse patient.[facility] HospitalIn the event this information is protected by the Federal Confidentiality of Alcohol and Drug Abuse Patient Records regulations: The Federal rules restrict any use of the information to criminally investigate or prosecute any alcohol or drug abuse patient.[facility] HospitalIn the event this information is protected by the Federal Confidentiality of Alcohol and Drug Abuse Patient Records regulations: The Federal rules restrict any use of the information to criminally investigate or prosecute any alcohol or drug abuse patient.[facility] HospitalIn the event this information is protected by the Federal Confidentiality of Alcohol and Drug Abuse Patient Records regulations: The Federal rules restrict any use of the information to criminally investigate or prosecute any alcohol or drug abuse patient.[facility] HospitalIn the event this information is protected by the Federal Confidentiality of Alcohol and Drug Abuse Patient Records regulations: The Federal rules restrict any use of the information to criminally investigate or prosecute any alcohol or drug abuse patient.[facility] HospitalIn the event this information is protected by the Federal Confidentiality of Alcohol and Drug Abuse Patient Records regulations: The Federal rules restrict any use of the information to criminally investigate or prosecute any alcohol or drug abuse patient.[facility] HospitalIn the event this information is protected by the Federal Confidentiality of Alcohol and Drug Abuse Patient Records regulations: The Federal rules restrict any use of the information to criminally investigate or prosecute any alcohol or drug abuse patient.[facility] HospitalIn the event this information is protected by the Federal Confidentiality of Alcohol and Drug Abuse Patient Records regulations: The Federal rules restrict any use of the information to criminally investigate or prosecute any alcohol or drug abuse patient.[facility] HospitalIn the event this information is protected by the Federal Confidentiality of Alcohol and Drug Abuse Patient Records regulations: The Federal rules restrict any use of the information to criminally investigate or prosecute any alcohol or drug abuse patient.[facility] HospitalIn the event this information is protected by the Federal Confidentiality of Alcohol and Drug Abuse Patient Records regulations: The Federal rules restrict any use of the information to criminally investigate or prosecute any alcohol or drug abuse patient.[facility] HospitalIn the event this information is protected by the Federal Confidentiality of Alcohol and Drug Abuse Patient Records regulations: The Federal rules restrict any use of the information to criminally investigate or prosecute any alcohol or drug abuse patient.[facility] HospitalIn the event this information is protected by the Federal Confidentiality of Alcohol and Drug Abuse Patient Records regulations: The Federal rules restrict any use of the information to criminally investigate or prosecute any alcohol or drug abuse patient.[facility] HospitalIn the event this information is protected by the Federal Confidentiality of Alcohol and Drug Abuse Patient Records regulations: The Federal rules restrict any use of the information to criminally investigate or prosecute any alcohol or drug abuse patient.[facility] HospitalIn the event this information is protected by the Federal Confidentiality of Alcohol and Drug Abuse Patient Records regulations: The Federal rules restrict any use of the information to criminally investigate or prosecute any alcohol or drug abuse patient.[facility] HospitalIn the event this information is protected by the Federal Confidentiality of Alcohol and Drug Abuse Patient Records regulations: The Federal rules restrict any use of the information to criminally investigate or prosecute any alcohol or drug abuse patient.[facility] HospitalIn the event this information is protected by the Federal Confidentiality of Alcohol and Drug Abuse Patient Records regulations: The Federal rules restrict any use of the information to criminally investigate or prosecute any alcohol or drug abuse patient.[facility] HospitalIn the event this information is protected by the Federal Confidentiality of Alcohol and Drug Abuse Patient Records regulations: The Federal rules restrict any use of the information to criminally investigate or prosecute any alcohol or drug abuse patient.[facility] HospitalIn the event this information is protected by the Federal Confidentiality of Alcohol and Drug Abuse Patient Records regulations: The Federal rules restrict any use of the information to criminally investigate or prosecute any alcohol or drug abuse patient.[facility] HospitalIn the event this information is protected by the Federal Confidentiality of Alcohol and Drug Abuse Patient Records regulations: The Federal rules restrict any use of the information to criminally investigate or prosecute any alcohol or drug abuse patient.[facility] HospitalIn the event this information is protected by the Federal Confidentiality of Alcohol and Drug Abuse Patient Records regulations: The Federal rules restrict any use of the information to criminally investigate or prosecute any alcohol or drug abuse patient.[facility] HospitalIn the event this information is protected by the Federal Confidentiality of Alcohol and Drug Abuse Patient Records regulations: The Federal rules restrict any use of the information to criminally investigate or prosecute any alcohol or drug abuse patient.[facility] HospitalIn the event this information is protected by the Federal Confidentiality of Alcohol and Drug Abuse Patient Records regulations: The Federal rules restrict any use of the information to criminally investigate or prosecute any alcohol or drug abuse patient.[facility] HospitalIn the event this information is protected by the Federal Confidentiality of Alcohol and Drug Abuse Patient Records regulations: The Federal rules restrict any use of the information to criminally investigate or prosecute any alcohol or drug abuse patient.[facility] HospitalIn the event this information is protected by the Federal Confidentiality of Alcohol and Drug Abuse Patient Records regulations: The Federal rules restrict any use of the information to criminally investigate or prosecute any alcohol or drug abuse patient.[facility] HospitalIn the event this information is protected by the Federal Confidentiality of Alcohol and Drug Abuse Patient Records regulations: The Federal rules restrict any use of the information to criminally investigate or prosecute any alcohol or drug abuse patient.[facility] HospitalIn the event this information is protected by the Federal Confidentiality of Alcohol and Drug Abuse Patient Records regulations: The Federal rules restrict any use of the information to criminally investigate or prosecute any alcohol or drug abuse patient.[facility] HospitalIn the event this information is protected by the Federal Confidentiality of Alcohol and Drug Abuse Patient Records regulations: The Federal rules restrict any use of the information to criminally investigate or prosecute any alcohol or drug abuse patient.[facility] Reason for Visit (unrecogniz ed section and content) Reason Comments Established Patient Pembro and follow up Specialty Diagnoses / Procedures Referred By Contac t Referred To Contact Hematology/Oncology / HEMATOLOGY/ONCOLOGY Diagnoses OV ; TX after Procedures EST PATIENT GrahamSaLamin B [address] [place] [address] Sylvia Mancilla APRN.[employer] [address] [place] [address] Referral ID Status Reason Start Date Expiration Date V isits Requested Visits Authorized [id number] Authorized 10/25/2021 01/22/2022 99 99 Reason Comments Chemotherapy Treatment keytruda Specialty Diagnoses / Procedures Referred By Contac t Referred To Contact 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) Procedures INJ PEMBROLIZUMAB Cyn [place] [address] [place] [address] [facility] [address] [place] [address] Referral ID Status Reason Start Date Expiration Date V isits Requested Visits Authorized [id number] Authorized 12/11/2019 04/24/2022 99 99 Reason Comments Refill Request Reason Comments Established Patient Pain Anxiety Reason Comments Chemotherapy Treatment Specialty Diagnoses / Procedures Referred By Contac t Referred To Contact 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) [place] [address] [place] [address] [facility] [address]j [address] [place] [address] Referral ID Status Reason Start Date Expiration Date V isits Requested Visits Authorized [id number] Authorized 12/11/2019 03/10/2020 1 1 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 Reason Onset Date Comments Refill Request 05/17/2021 Reason Comments Care Coordination sinus symptoms Reason Onset Date Comments Refill Request 06/06/2021 Reason Onset Date Comments Refill Request 06/15/2021 Reason Onset Date Comments Refill Request 06/30/2021 Specialty Diagnoses / Procedures [facility] Referred To Contact 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) [place] [address] [place] [address] [facility] Rej [address] [place] [address] Reason Onset Date Comments Refill Request 2021 Reason Comments LESION, SKIN Reason Comments Care Coordination Pall med referral Reason Onset Date Comments Refill Request 08/14/2021 Reason Onset Date Comments Refill Request 08/30/2021 Reason Onset Date Comments Refill Request 09/02/2021 Reason Onset Date Comments Refill Request 09/03/2021 Reason Comments Derm Problem Hs lesions Reason Onset Date Comments Refill Request 09/11/2021 Reason Comments Board Handler - ED Follow Up Reason Onset Date Comments Refill Request 10/04/2021 Reason Onset Date Comments Refill Request 10/16/2021 Reason Comments Established Patient Pembro infusion Specialty Diagnoses / Procedures Referred By Contac t Referred To Contact Hematology/Oncology / HEMATOLOGY/ONCOLOGY Diagnoses OV ; TX after Procedures EST PATIENT Lamin Stevenson [address] [place] [address] Sylvia Mancilla, EDUCATIONAL RESOURCE COORDINATOR.STATE COMPTROLLER [address] [place] [address] Reason Comments Follow Up Pain Insomnia Reason Onset Date Comments Refill Request 10/31/2021 Reason Onset Date Comments Refill Request 11/07/2021 Reason Comments Orders Reason Comments Established Patient Specialty Diagnoses / Procedures Referred By Contac t Referred To Contact 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) Procedures [place] [address] [place] [address] [facility] [address] [address] [place] [address] Referral ID Status Reason Start Date Expiration Date V isits Requested Visits Authorized [id number] Pending Review 12/11/2019 04/24/2022 99 99 Reason Onset Date Comments Refill Request 12/04/2021 Reason Comments Acne Specialty Diagnoses / Procedures Referred By Contac t Referred To Contact Dermatology / DERMATOLOGY Diagnoses ACNE Procedures EST DPSI GENERAL Self Nova Bridges, EDUCATIONAL RESOURCE COORDINATOR.STATE COMPTROLLER [address] [place] [address] Referral ID Status Reason Start Date Expiration Date V isits Requested Visits Authorized [id number] Closed Financial Clearance Required - OON Payor [...] petscan move 02/28 to 03/07 1130 w/ Ramires and infusion after Procedures [place] [address] [place] [address] [place] [address] [place] [address] Referral ID Status Reason Start Date Expiration Date Visits Re quested Visits Authorized [id number] Closed 02/27/2022 03/30/2022 1 1 Reason Onset Date Comments Refill Request 03/15/2022 Reason Comments Cancer Reason Comments Patient Education Reason Comments Chemotherapy Treatment Keytruda Referral ID Status Reason Start Date Expiration Date V isits Requested Visits Authorized [id number] Authorized 12/11/2019 10/26/2022 99 99 Reason Onset [...] MIN EST PATIENT Jose Vail MD [address] [place] [address] [place] [address] [place] [address] Referral ID Status Reason Start Date Expiration Date V isits Requested Visits Authorized [id number] Authorized 05/23/2022 05/24/2023 99 99 Reason Onset Date Comments Refill Request 06/11/2022 Reason Comments New Medication Reason Onset Date Comments Refill Request 07/16/[address] Specialty Diagnoses / Procedures Referred By Heidi t Referred To Contact Hematology/Oncology / HEMATOLOGY/ONCOLOGY Diagnoses Acute cough OV with Dr. Ramires on 06/12 Procedures OFFICE/OUTPATIENT NEW HIGH MDM 60-74 MINUTES OFFICE/OUTPATIENT ESTABLISHED HIGH MDM 40-54 MIN EST PATIENT Jose Vail MD [address] [place] [address] [place] [address] [place] [address] Reason Comments Dyspnea On Exertion Simple chronic [...] HIGH MDM 40-54 MIN RI EST PULM Jose Galvan MD [address] [place] [address] Ella Chan, EDUCATIONAL RESOURCE COORDINATOR.STATE COMPTROLLER [address] [place] [address] Referral ID Status Reason Start Date Expiration Date Visits Re quested Visits Authorized [id number] Closed 06/26/2022 06/27/2023 1 1 Reason Comments [...] ESTABLISHED HIGH MDM 40-54 MIN RI EST PULJose Garsia MD [address] [place] [address] Ella Chan, LORY.STATE COMPTROLLER [address] [place] [address] Referral ID Status Reason Start Date Expiration Date V isits Requested Visits Authorized [id number] Authorized 05/22/2022 05/23/2023 99 99 Specialty Diagnoses / Procedures Referred By Contac t Referred To Contact CT IMAGING Diagnoses Acute cough Procedures CT CHEST WO IVCON DIAGNOSTIC COMPUTED TOMOGRAPHY THORAX W/[place] [address] [place] [address] Ct Imaging Referral ID Status Reason Start Date Expiration Date V isits Requested Visits Authorized [id number] Closed Auto-Generate d Referral 05/22/2022 06/21/2023 1 [...] Referred By Heidi george Referred To Contact Hematology / HEMATOLOGY/ONCOLOGY Diagnoses Ref by Dr Cyn Ramires due to pt wanting closer to home DX: Hodgkins lymphomaPT REQ BRM Procedures OFFICE/OUTPATIENT NEW HIGH MDM 60-74 MINUTES NEW PATIENT MED ONC Jose Vail MD [address] [facility] [place] [address] Alexsander Ledezma MD [address] [place] [address] [place] [address] Referral ID Status Reason Start Date Expiration Date Visits Re quested Visits Authorized [id number] Closed 12/26/2022 12/27/2023 1 1 Reason Comments Results Reason Onset Date Comments Refill Request 01/06/2023 Reason Comments Spirometry Specialty Diagnoses / Procedures Referred By Heidi t Referred To Contact [facility] Diagnoses Chronic cough Procedures LUNG DIFFUSION CAPACITY (DLCO) DIFFUSING CAPACITY Ella Chan, LORY.STATE COMPTROLLER [address] [place] [address] [facility] [place] [address] [place] [address] Referral ID Status Reason Start Date Expiration Date V isits Requested Visits Authorized [id number] Closed Auto-Generate d Referral 01/08/2023 02/17/2023 1 1 Specialty Diagnoses / Procedures Referred By Contac t Referred To Contact [facility] Diagnoses Bronchitis Procedures NITRIC OXIDE, EXHALED NITRIC OXIDE GAS DETERMINATION Ella Chan, EDUCATIONAL RESOURCE COORDINATOR.STATE COMPTROLLER [address] [facility] [place] [address] [place] [address] Referral ID Status Reason Start Date Expiration Date V isits Requested Visits Authorized [id number] Closed Auto-Generate d Referral 01/08/2023 02/17/2023 1 1 Reason Comments Shortness of Breath Wheezing Specialty Diagnoses / Procedures [facility] Referred To Contact Pulmonary Disease / PULMONARY MEDICINE Diagnoses Bronchitis, not specified as acute or chronic Bronchitis, not specified as acute or chronic [J40] Procedures OFFICE/OUTPATIENT ESTABLISHED HIGH MDM 40 MIN OFFICE/OUTPATIENT ESTABLISHED MOD MDM 30 MIN OFFICE/OUTPATIENT ESTABLISHED LOW MDM 20 MIN OFFICE/OUTPATIENT ESTABLISHED SF MDM 10 MIN RI EST PULM GENERAL Ella Chan, EDUCATIONAL RESOURCE COORDINATOR.STATE COMPTROLLER [address] [facility] [place] [address] Kylie Nunes EDUCATIONAL RESOURCE COORDINATOR.STATE COMPTROLLER [address] [place] [id number] Referral ID Status Reason Start Date Expiration Date Visits Re quested Visits Authorized [id number] Closed 03/12/2023 02/18/2024 1 1 Specialty Diagnoses / Procedures [facility] Referred To [facility] Diagnoses Bronchitis, not specified as acute or chronic Procedures SPIROMETRY - BASELINE AND POST DILATOR BRNCDILAT RSPSE SPMTRY PRE&POST-BRNCDILAT ADMN Ella Chan, EDUCATIONAL RESOURCE COORDINATOR.STATE COMPTROLLER [address] [facility]. [place] [id number] [facility] [place] [address] [facility] [place] [id number] Referral ID Status Reason Start Date Expiration Date V isits Requested Visits Authorized [id number] Closed Auto-Generate d Referral 02/14/2023 03/15/2024 1 1 Reason Comments Med Change Request Reason Comments Lab Orders Care Teams (unrecognized sec tion and content) Light Rail Operator Relationship Specialty Start Date End Date Jose Vail MD PCP - General Internal Medicine 05/07/16 [place] [address] [place] [address] Consulting Hematology/Oncology 01/28/12 [place] [address] [place] [address] Specialty Board Handler Hematology/Oncology 11/09/19 [place] [address] [place] [address] Hematology/Oncology 03/30/21 Light Rail Operator Relationship Specialty Start Date End Date Jose Vail MD PCP - General Internal Medicine 05/07/16 [place] [address] [place] [address] Consulting Hematology/Oncology 01/28/12 [place] [address] [place] [address] Specialty Board Handler Hematology/Oncology 11/09/19 [place] [address] [place] [address] Hematology/Oncology 03/30/21 Light Rail Operator Relationship Specialty Start Date End Date Jose Vail MD PCP - General Internal Medicine 05/07/16 [place] [address] [place] [address] Consulting Hematology/Oncology 01/28/12 Marilyn Hughes RN [id number] [place] [address] Specialty Board Handler Hematology/Oncology 11/09/19 [place] [address] [place] [address] Hematology/Oncology 03/30/21 Light Rail Operator Relationship Specialty Start Date End Date Jose Vail MD PCP - General Internal Medicine 05/07/16 [place] [address] [place] [address] Consulting Hematology/Oncology 01/28/12 Marilyn Hughes RN [address] [place] [address] Specialty Board Handler Hematology/Oncology 11/09/19 [place] [address] [place] [address] Hematology/Oncology 03/30/21 Light Rail Operator Relationship Specialty Start Date End Date Jose Vail MD PCP - General Internal Medicine 05/07/16 [place] [address] [place] [address] Consulting Hematology/Oncology 01/28/12 Marilyn Hughes RN [id number] [place] [address] Specialty Board Handler Hematology/Oncology 11/09/19 [place] [address] [place] [address] Hematology/Oncology 03/30/21 Light Rail Operator Relationship Specialty Start Date End Date Jose Vail MD PCP - General Internal Medicine 05/07/16 Cyn Ramires [place] [address] [place] [address] Consulting Hematology/Oncology 01/28/12 Marilyn Hughes, RN [phone] [place] [address] Specialty Board Handler Hematology/Oncology 11/09/19 Cyn Ramires MD [address] [place] [address] Hematology/Oncology 03/30/21 Light Rail Operator Relationship Specialty Start Date End Date Jose Vail MD PCP - General Internal Medicine 05/07/16 Cyn Ramires [place] [id number] [place] [address] Consulting Hematology/Oncology 01/28/12 Marilyn Hughes, RN [address] [place] [address] Specialty Board Handler Hematology/Oncology 11/09/19 Cyn Ramires MD [id number] [place] [address] Hematology/Oncology 03/30/21 Kristina Pete, RN Specialty Board Handler HOSPICE & PALLIATIVE MEDICINE 05/22/21 Light Rail Operator Relationship Specialty Start Date End Date Jose Vail MD PCP - General Internal Medicine 05/07/16 Cyn Ramires [place] [id number] [place] [address] Consulting Hematology/Oncology 01/28/12 Marilyn Hughes RN [phone] [place] [address] Specialty Board Handler Hematology/Oncology 11/09/19 [place] [address] [place] [address] Hematology/Oncology 03/30/21 Kristina Pete, RN Specialty Board Handler HOSPICE & PALLIATIVE MEDICINE 05/22/21 Light Rail Operator Relationship Specialty Start Date End Date Jose Vail MD PCP - General Internal Medicine 05/07/16 [place] [address] [place] [address] Consulting Hematology/Oncology 01/28/12 Marilyn Hughes RN [phone] [place] [address] Specialty Board Handler Hematology/Oncology 11/09/19 [place] [address] [place] [address] Hematology/Oncology 03/30/21 Kristina Pete, RN Specialty Board Handler HOSPICE & PALLIATIVE MEDICINE 05/22/21 Light Rail Operator Relationship Specialty Start Date End Date Jose Vail MD PCP - General Internal Medicine 05/07/16 [place] [address] [place] [address] Consulting Hematology/Oncology 01/28/12 Marilyn Hughes RN [phone] [place] [address] Specialty Board Handler Hematology/Oncology 11/09/19 [place] [address] [place] [address] Hematology/Oncology 03/30/21 Kristina Pete, RN Specialty Board Handler HOSPICE & PALLIATIVE MEDICINE 05/22/21 Light Rail Operator Relationship Specialty Start Date End Date Jose Vail MD PCP - General Internal Medicine 05/07/16 [place] [address] [place] [address] Consulting Hematology/Oncology 01/28/12 [place] [address] [place] [address] Specialty Board Handler Hematology/Oncology 11/09/19 [place] [address] [place] [address] Hematology/Oncology 03/30/21 Kristina Pete, MAE Specialty Board Handler HOSPICE & PALLIATIVE MEDICINE 05/22/21 Juan Francisco Hutchinson, EDUCATIONAL RESOURCE COORDINATOR.STATE COMPTROLLER [address] [place] [address] Palliative Medicine Provider HOSPICE & PALLIATIVE MEDICINE 06/28/21 Light Rail Operator Relationship Specialty Start Date End Date Jose Vail MD PCP - General Internal Medicine 05/07/16 [place] [address] [place] [address] Consulting Hematology/Oncology 01/28/12 [place] [address] [place] [address] Specialty Board Handler Hematology/Oncology 11/09/19 [place] [address] [place] [address] Hematology/Oncology 03/30/21 Kristina Pete, RN Specialty Board Handler HOSPICE & PALLIATIVE MEDICINE 05/22/21 Juan Francisco Hutchinson, EDUCATIONAL RESOURCE COORDINATOR.STATE COMPTROLLER [address] [place] [address] Palliative Medicine Provider HOSPICE & PALLIATIVE MEDICINE 06/28/21 Light Rail Operator Relationship Specialty Start Date End Date Jose Vail MD PCP - General Internal Medicine 05/07/16 [place] [address] [place] [address] Consulting Hematology/Oncology 01/28/12 Marilyn Hughes, MAE [address] [place] [address] Specialty Board Handler Hematology/Oncology 11/09/19 [place] [address] [place] [address] Hematology/Oncology 03/30/21 Kristina Pete, RN Specialty Board Handler HOSPICE & PALLIATIVE MEDICINE 05/22/21 Juan Francisco Hutchinson, EDUCATIONAL RESOURCE COORDINATOR.STATE COMPTROLLER [address] [place] [address] Palliative Medicine Provider HOSPICE & PALLIATIVE MEDICINE 06/28/21 Light Rail Operator Relationship Specialty Start Date End Date Jose Vail MD PCP - General Internal Medicine 05/07/16 [place] [address] [place] [address] Consulting Hematology/Oncology 01/28/12 [place] [address] [place] [address] Specialty Board Handler Hematology/Oncology 11/09/19 [place] [address] [facility] [place] [address] Hematology/Oncology 03/30/21 Kristina Pete, RN Specialty Board Handler HOSPICE & PALLIATIVE MEDICINE 05/22/21 Juan Francisco Hutchinson, EDUCATIONAL RESOURCE COORDINATOR.STATE COMPTROLLER [address] [place] [address] Palliative Medicine Provider HOSPICE & PALLIATIVE MEDICINE 06/28/21 Light Rail Operator Relationship Specialty Start Date End Date Jose Vail MD PCP - General Internal Medicine 05/07/16 [place] [address] [place] [address] Consulting Hematology/Oncology 01/28/12 [place] [address] [place] [address] Specialty Board Handler Hematology/Oncology 11/09/19 [place] [address] [place] [address] Hematology/Oncology 03/30/21 Kristina Pete, RN Specialty Board Handler HOSPICE & PALLIATIVE MEDICINE 05/22/21 Juan Francisco Hutchinson, EDUCATIONAL RESOURCE COORDINATOR.STATE COMPTROLLER [address] [place] [address] Palliative Medicine Provider HOSPICE & PALLIATIVE MEDICINE 06/28/21 Light Rail Operator Relationship Specialty Start Date End Date Jose Vail MD PCP - General Internal Medicine 05/07/16 [place] [address] [place] [address] Consulting Hematology/Oncology 01/28/12 [place] [address] [place] [address] Specialty Board Handler Hematology/Oncology 11/09/19 [place] [address] [place] [address] Hematology/Oncology 03/30/21 Kristina Pete, RN Specialty Board Handler HOSPICE & PALLIATIVE MEDICINE 05/22/21 Juan Francisco Hutchinson, EDUCATIONAL RESOURCE COORDINATOR.STATE COMPTROLLER [address] [place] [address] Palliative Medicine Provider HOSPICE & PALLIATIVE MEDICINE 06/28/21 Light Rail Operator Relationship Specialty Start Date End Date Jose Vail MD PCP - General Internal Medicine 05/07/16 [place] [address] [place] [address] Consulting Hematology/Oncology 01/28/12 [place] [address] [place] [address] Specialty Board Handler Hematology/Oncology 11/09/19 [place] [address] [place] [address] Hematology/Oncology 03/30/21 Kristina Pete, RN Specialty Board Handler HOSPICE & PALLIATIVE MEDICINE 05/22/21 Juan Francisco Hutchinson, EDUCATIONAL RESOURCE COORDINATOR.STATE COMPTROLLER [address] [place] [address] Palliative Medicine Provider HOSPICE & PALLIATIVE MEDICINE 06/28/21 Light Rail Operator Relationship Specialty Start Date End Date Jose Vail MD PCP - General Internal Medicine 05/07/16 [place] [address] [place] [address] Consulting Hematology/Oncology 01/28/12 Marilyn Hughes RN [id number] [place] [address] Specialty Board Handler Hematology/Oncology 11/09/19 [place] [address] [place] [address] Hematology/Oncology 03/30/21 Kristina Pete, MAE Specialty Board Handler HOSPICE & PALLIATIVE MEDICINE 05/22/21 Juan Francisco Hutchinson, EDUCATIONAL RESOURCE COORDINATOR.STATE COMPTROLLER [address] [place] [address] Palliative Medicine Provider HOSPICE & PALLIATIVE MEDICINE 06/28/21 Light Rail Operator Relationship Specialty Start Date End Date Jose Vail MD PCP - General Internal Medicine 05/07/16 [place] [address] [place] [address] Consulting Hematology/Oncology 01/28/12 [place] [address] [place] [address] Specialty Board Handler Hematology/Oncology 11/09/19 [place] [address] [place] [address] Hematology/Oncology 03/30/21 Kristina Pete, MAE Specialty Board Handler HOSPICE & PALLIATIVE MEDICINE 05/22/21 Juan Francisco Hutchinson, EDUCATIONAL RESOURCE COORDINATOR.STATE COMPTROLLER [address] [facility] [place] [address] Palliative Medicine Provider HOSPICE & PALLIATIVE MEDICINE 06/28/21 Light Rail Operator Relationship Specialty Start Date End Date Jose Vail MD PCP - General Internal Medicine 05/07/16 [place] [address] [place] [address] Consulting Hematology/Oncology 01/28/12 [place] [address] [place] [address] Specialty Board Handler Hematology/Oncology 11/09/19 [place] [address] [place] [address] Hematology/Oncology 03/30/21 Kristina Pete, MAE Specialty Board Handler HOSPICE & PALLIATIVE MEDICINE 05/22/21 Juan Francisco Hutchinson, EDUCATIONAL RESOURCE COORDINATOR.STATE COMPTROLLER [address] [facility] [place] [address] Palliative Medicine Provider HOSPICE & PALLIATIVE MEDICINE 06/28/21 Light Rail Operator Relationship Specialty Start Date End Date Jose Vail MD PCP - General Internal Medicine 05/07/16 [place] [address] [place] [address] Consulting Hematology/Oncology 01/28/12 Marilyn Hughes, MAE [address] [place] [address] Specialty Board Handler Hematology/Oncology 11/09/19 [place] [address] [place] [address] Hematology/Oncology 03/30/21 Kristina Pete, MAE Specialty Board Handler HOSPICE & PALLIATIVE MEDICINE 05/22/21 Juan Francisco Hutchinson, EDUCATIONAL RESOURCE COORDINATOR.STATE COMPTROLLER [address] [place] [address] Palliative Medicine Provider HOSPICE & PALLIATIVE MEDICINE 06/28/21 Light Rail Operator Relationship Specialty Start Date End Date Jose Vail MD PCP - General Internal Medicine 05/07/16 [place] [address] [place] [address] Consulting Hematology/Oncology 01/28/12 [place] [address] [place] [address] Specialty Board Handler Hematology/Oncology 11/09/19 [place] [address] [place] [address] Hematology/Oncology 03/30/21 Kristina Pete, MAE Specialty Board Handler HOSPICE & PALLIATIVE MEDICINE 05/22/21 Juan Francisco Hutchinson, EDUCATIONAL RESOURCE COORDINATOR.STATE COMPTROLLER [address] [place] [address] Palliative Medicine Provider HOSPICE & PALLIATIVE MEDICINE 06/28/21 Light Rail Operator Relationship Specialty Start Date End Date Jose Vail MD PCP - General Internal Medicine 05/07/16 [place] [address] [place] [address] Consulting Hematology/Oncology 01/28/12 [place] [address] [place] [address] Specialty Board Handler Hematology/Oncology 11/09/19 [place] [address] [facility] [place] [address] Hematology/Oncology 03/30/21 Kristina Pete, RN Specialty Board Handler HOSPICE & PALLIATIVE MEDICINE 05/22/21 Juan Francisco Hutchinson, EDUCATIONAL RESOURCE COORDINATOR.STATE COMPTROLLER [address] [place] [address] Palliative Medicine Provider HOSPICE & PALLIATIVE MEDICINE 06/28/21 Light Rail Operator Relationship Specialty Start Date End Date Jose Vail MD PCP - General Internal Medicine 05/07/16 [place] [address] [place] [address] Consulting Hematology/Oncology 01/28/12 Marilyn Hughes, MAE [address] [place] [address] Specialty Board Handler Hematology/Oncology 11/09/19 [place] [address] [place] [address] Hematology/Oncology 03/30/21 Kristina Pete, RN Specialty Board Handler HOSPICE & PALLIATIVE MEDICINE 05/22/21 Juan Francisco Hutchinson, EDUCATIONAL RESOURCE COORDINATOR.STATE COMPTROLLER [address] [place] [address] Palliative Medicine Provider HOSPICE & PALLIATIVE MEDICINE 06/28/21 Light Rail Operator Relationship Specialty Start Date End Date Jose Vail MD PCP - General Internal Medicine 05/07/16 [place] [address] [place] [address] Consulting Hematology/Oncology 01/28/12 [place] [address] [place] [address] Specialty Board Handler Hematology/Oncology 11/09/19 [place] [address] [place] [address] Hematology/Oncology 03/30/21 Kristina Pete, RN Specialty Board Handler HOSPICE & PALLIATIVE MEDICINE 05/22/21 Juan Francisco Hutchinson, EDUCATIONAL RESOURCE COORDINATOR.STATE COMPTROLLER [address] [place] [address] Palliative Medicine Provider HOSPICE & PALLIATIVE MEDICINE 06/28/21 Light Rail Operator Relationship Specialty Start Date End Date Jose Vail MD PCP - General Internal Medicine 05/07/16 [place] [address] Consulting Hematology/Oncology 01/28/12 [place] [address] [place] [address] Specialty Board Handler Hematology/Oncology 11/09/19 [place] [address] [place] [address] Hematology/Oncology 03/30/21 Kristina Pete, RN Specialty Board Handler HOSPICE & PALLIATIVE MEDICINE 05/22/21 Juan Francisco Hutchinson, EDUCATIONAL RESOURCE COORDINATOR.STATE COMPTROLLER [address] [place] [address] Palliative Medicine Provider HOSPICE & PALLIATIVE MEDICINE 06/28/21 Light Rail Operator Relationship Specialty Start Date End Date Jose Vail MD PCP - General Internal Medicine 05/07/16 [place] [address] [place] [address] Consulting Hematology/Oncology 01/28/12 [place] [address] [place] [address] Specialty Board Handler Hematology/Oncology 11/09/19 [place] [address] [place] [address] Hematology/Oncology 03/30/21 Kristina Pete, RN Specialty Board Handler HOSPICE & PALLIATIVE MEDICINE 05/22/21 Juan Francisco Hutchinson, EDUCATIONAL RESOURCE COORDINATOR.STATE COMPTROLLER [address] [place] [address] Palliative Medicine Provider HOSPICE & PALLIATIVE MEDICINE 06/28/21 Light Rail Operator Relationship Specialty Start Date End Date Jose Vail MD PCP - General Internal Medicine 05/07/16 [place] [address] [place] [address] Consulting Hematology/Oncology 01/28/12 Marilyn Hughes, MAE [address] [place] [address] Specialty Board Handler Hematology/Oncology 11/09/19 [place] [address] [place] [address] Hematology/Oncology 03/30/21 Kristina Pete, MAE Specialty Board Handler HOSPICE & PALLIATIVE MEDICINE 05/22/21 Juan Francisco Hutchinson, EDUCATIONAL RESOURCE COORDINATOR.STATE COMPTROLLER [address] [place] [address] Palliative Medicine Provider HOSPICE & PALLIATIVE MEDICINE 06/28/21 Kylie Mosher RN Specialty Board Handler HOSPICE & PALLIATIVE MEDICINE 09/27/21 Light Rail Operator Relationship Specialty Start Date End Date Jose Vail MD PCP - General Internal Medicine 05/07/16 [place] [address] [place] [address] Consulting Hematology/Oncology 01/28/12 Marilyn Hughes, RN [id number] [place] [address] Specialty Board Handler Hematology/Oncology 11/09/19 [place] [address] [place] [address] Hematology/Oncology 03/30/21 Kristina Pete, MAE Specialty Board Handler HOSPICE & PALLIATIVE MEDICINE 05/22/21 Juan Francisco Hutchinson, EDUCATIONAL RESOURCE COORDINATOR.STATE COMPTROLLER [address] [place] [address] Palliative Medicine Provider HOSPICE & PALLIATIVE MEDICINE 06/28/21 Kylie Mosher, RN Specialty Board Handler HOSPICE & PALLIATIVE MEDICINE 09/27/21 Light Rail Operator Relationship Specialty Start Date End Date Jose Vail MD PCP - General Internal Medicine 05/07/16 [place] [address] Consulting Hematology/Oncology 01/28/12 Marilyn Hughes, MAE [address] [place] [address] Specialty Board Handler Hematology/Oncology 11/09/19 [place] [address] [place] [address] Hematology/Oncology 03/30/21 Kristina Pete, MAE Specialty Board Handler HOSPICE & PALLIATIVE MEDICINE 05/22/21 Juan Francisco Hutchinson, EDUCATIONAL RESOURCE COORDINATOR.STATE COMPTROLLER [address] [place] [address] Palliative Medicine Provider HOSPICE & PALLIATIVE MEDICINE 06/28/21 Kylie Mosher RN Specialty Board Handler HOSPICE & PALLIATIVE MEDICINE 09/27/21 Light Rail Operator Relationship Specialty Start Date End Date Jose Vail MD PCP - General Internal Medicine 05/07/16 [place] [address] [place] [address] Consulting Hematology/Oncology 01/28/12 [place] [address] [place] [address] Specialty Board Handler Hematology/Oncology 11/09/19 [place] [address] [place] [address] Hematology/Oncology 03/30/21 Kristina Pete, MAE Specialty Board Handler HOSPICE & PALLIATIVE MEDICINE 05/22/21 Juan Francisco Hutchinson, EDUCATIONAL RESOURCE COORDINATOR.STATE COMPTROLLER [address] [place] [address] Palliative Medicine Provider HOSPICE & PALLIATIVE MEDICINE 06/28/21 Kylie Mosher RN Specialty Board Handler HOSPICE & PALLIATIVE MEDICINE 09/27/21 Light Rail Operator Relationship Specialty Start Date End Date Jose Vail MD PCP - General Internal Medicine 05/07/16 [place] [address] [place] [address] Consulting Hematology/Oncology 01/28/12 [place] [address] [place] [address] Specialty Board Handler Hematology/Oncology 11/09/19 [place] [address] [place] [address] Hematology/Oncology 03/30/21 Kristina Pete, RN Specialty Board Handler HOSPICE & PALLIATIVE MEDICINE 05/22/21 Juan Francisco Hutchinson, EDUCATIONAL RESOURCE COORDINATOR.STATE COMPTROLLER [address] [place] [address] Palliative Medicine Provider HOSPICE & PALLIATIVE MEDICINE 06/28/21 Kylie Mosher, RN Specialty Board Handler HOSPICE & PALLIATIVE MEDICINE 09/27/21 Light Rail Operator Relationship Specialty Start Date End Date Jose Vail MD PCP - General Internal Medicine 05/07/16 [place] [address] [place] [address] Consulting Hematology/Oncology 01/28/12 [place] MAE [address] [place] [address] Specialty Board Handler Hematology/Oncology 11/09/19 [place] [address] [place] [address] Hematology/Oncology 03/30/21 Kristina Pete, RN Specialty Board Handler HOSPICE & PALLIATIVE MEDICINE 05/22/21 Juan Francisco Hutchinson, EDUCATIONAL RESOURCE COORDINATOR.STATE COMPTROLLER [address] [place] [address] Palliative Medicine Provider HOSPICE & PALLIATIVE MEDICINE 06/28/21 Kylie Mosher, RN Specialty Board Handler HOSPICE & PALLIATIVE MEDICINE 09/27/21 Light Rail Operator Relationship Specialty Start Date End Date Jose Vail MD PCP - General Internal Medicine 05/07/16 [place] [address] [place] [address] Consulting Hematology/Oncology 01/28/12 [place] [address] [place] [address] Specialty Board Handler Hematology/Oncology 11/09/19 [place] [address] [place] [address] Hematology/Oncology 03/30/21 Kristina Pete, MAE Specialty Board Handler HOSPICE & PALLIATIVE MEDICINE 05/22/21 Juan Francisco Hutchinson, EDUCATIONAL RESOURCE COORDINATOR.STATE COMPTROLLER [address] [place], [place] [id number] Palliative Medicine Provider HOSPICE & PALLIATIVE MEDICINE 06/28/21 Kylie Mosher RN Specialty Board Handler HOSPICE & PALLIATIVE MEDICINE 09/27/21 Light Rail Operator Relationship Specialty Start Date End Date Jose Vail MD PCP - General Internal Medicine 05/07/16 [place] [address] [place] [address] Consulting Hematology/Oncology 01/28/12 [place] [address] [place] [address] Specialty Board Handler Hematology/Oncology 11/09/19 [place] [address] [place] [address] Hematology/Oncology 03/30/21 Kristina Pete, MAE Specialty Board Handler HOSPICE & PALLIATIVE MEDICINE 05/22/21 Juan Francisco Hutchinson, EDUCATIONAL RESOURCE COORDINATOR.STATE COMPTROLLER [address] [place], [place] [id number] Palliative Medicine Provider HOSPICE & PALLIATIVE MEDICINE 06/28/21 Kylie Mosher, RN Specialty Board Handler HOSPICE & PALLIATIVE MEDICINE 09/27/21 Light Rail Operator Relationship Specialty Start Date End Date Jose Vail MD PCP - General Internal Medicine 05/07/16 [place] [address] [place] [address] Consulting Hematology/Oncology 01/28/12 Marilyn Hughes, RN [phone] [place] [address] Specialty Board Handler Hematology/Oncology 11/09/19 [place] [address] [place] [address] Hematology/Oncology 03/30/21 Kristina Pete, MAE Specialty Board Handler HOSPICE & PALLIATIVE MEDICINE 05/22/21 Juan Francisco Hutchinson, EDUCATIONAL RESOURCE COORDINATOR.STATE COMPTROLLER [address] [place] [address] Palliative Medicine Provider HOSPICE & PALLIATIVE MEDICINE 06/28/21 Kylie Mosher, RN Specialty Board Handler HOSPICE & PALLIATIVE MEDICINE 09/27/21 Light Rail Operator Relationship Specialty Start Date End Date Jose Vail MD PCP - General Internal Medicine 05/07/16 [place] [address] [place] [address] Consulting Hematology/Oncology 01/28/12 Marilyn Hughes, RN [phone] [place] [address] Specialty Board Handler Hematology/Oncology 11/09/19 [place] [address] [place] [address] Hematology/Oncology 03/30/21 Kristina Pete, RN Specialty Board Handler HOSPICE & PALLIATIVE MEDICINE 05/22/21 Juan Francisco Hutchinson, EDUCATIONAL RESOURCE COORDINATOR.STATE COMPTROLLER [address] [place] [address] Palliative Medicine Provider HOSPICE & PALLIATIVE MEDICINE 06/28/21 Kylie Mosher, RN Specialty Board Handler HOSPICE & PALLIATIVE MEDICINE 09/27/21 Light Rail Operator Relationship Specialty Start Date End Date Jose Vail MD PCP - General Internal Medicine 05/07/16 [place] [address] [place] [address] Consulting Hematology/Oncology 01/28/12 [place] MAE [address] [place] [address] Specialty Board Handler Hematology/Oncology 11/09/19 [place] [address] [place] [address] Hematology/Oncology 03/30/21 Kristina Pete, RN Specialty Board Handler HOSPICE & PALLIATIVE MEDICINE 05/22/21 Juan Francisco Hutchinson, EDUCATIONAL RESOURCE COORDINATOR.STATE COMPTROLLER [address] [place] [address] Palliative Medicine Provider HOSPICE & PALLIATIVE MEDICINE 06/28/21 Kylie Mosher, RN Specialty Board Handler HOSPICE & PALLIATIVE MEDICINE 09/27/21 Light Rail Operator Relationship Specialty Start Date End Date Jose Vail MD PCP - General Internal Medicine 05/07/16 [place] [address] [place] [address] Consulting Hematology/Oncology 01/28/12 [place] MAE [address] [place] [address] Specialty Board Handler Hematology/Oncology 11/09/19 [place] [address] [place] [address] Hematology/Oncology 03/30/21 Kristina Pete, RN Specialty Board Handler HOSPICE & PALLIATIVE MEDICINE 05/22/21 Juan Francisco Hutchinson, EDUCATIONAL RESOURCE COORDINATOR.STATE COMPTROLLER [address] [place] [address] Palliative Medicine Provider HOSPICE & PALLIATIVE MEDICINE 06/28/21 Kylie Mosher RN Specialty Board Handler HOSPICE & PALLIATIVE MEDICINE 09/27/21 Light Rail Operator Relationship Specialty Start Date End Date Jose Vail MD PCP - General Internal Medicine 05/07/16 [place] [address] [place] [address] Consulting Hematology/Oncology 01/28/12 [place] [address] [place] [address] Specialty Board Handler Hematology/Oncology 11/09/19 [place] [address] [place] [address] Hematology/Oncology 03/30/21 Kristina Pete, MAE Specialty Board Handler HOSPICE & PALLIATIVE MEDICINE 05/22/21 Juan Francisco Hutchinson, EDUCATIONAL RESOURCE COORDINATOR.STATE COMPTROLLER [address] [place] [address] Palliative Medicine Provider HOSPICE & PALLIATIVE MEDICINE 06/28/21 Kylie Mosher RN Specialty Board Handler HOSPICE & PALLIATIVE MEDICINE 09/27/21 Light Rail Operator Relationship Specialty Start Date End Date Jose Vail MD PCP - General Internal Medicine 05/07/16 [place] [address] [place] [address] Consulting Hematology/Oncology 01/28/12 Marilyn Hughes, RN [address] [place] [address] Specialty Board Handler Hematology/Oncology 11/09/19 [place] [address] [place] [address] Hematology/Oncology 03/30/21 Kristina Pete, MAE Specialty Board Handler HOSPICE & PALLIATIVE MEDICINE 05/22/21 Juan Francisco Hutchinson, EDUCATIONAL RESOURCE COORDINATOR.STATE COMPTROLLER [address] [place] [address] Palliative Medicine Provider HOSPICE & PALLIATIVE MEDICINE 06/28/21 Kylie Mosher, MAE Specialty Board Handler HOSPICE & PALLIATIVE MEDICINE 09/27/21 Light Rail Operator Relationship Specialty Start Date End Date Jose Vail MD PCP - General Internal Medicine 05/07/16 [place] [address] Consulting Hematology/Oncology 01/28/12 Marilyn Hughes, MAE [address] [place] [address] Specialty Board Handler Hematology/Oncology 11/09/19 [place] [address] [place] [address] Hematology/Oncology 03/30/21 Kristina Pete, MAE Specialty Board Handler HOSPICE & PALLIATIVE MEDICINE 05/22/21 Juan Francisco Hutchinson, EDUCATIONAL RESOURCE COORDINATOR.STATE COMPTROLLER [address] [place] [address] Palliative Medicine Provider HOSPICE & PALLIATIVE MEDICINE 06/28/21 Kylie Mosher RN Specialty Board Handler HOSPICE & PALLIATIVE MEDICINE 09/27/21 Light Rail Operator Relationship Specialty Start Date End Date Jose Vail MD PCP - General Internal Medicine 05/07/16 [place] [address] [place] [address] Consulting Hematology/Oncology 01/28/12 [place] MAE [address] [place] [address] Specialty Board Handler Hematology/Oncology 11/09/19 [place] [address] [place] [address] Hematology/Oncology 03/30/21 Kristina Pete, MAE Specialty Board Handler HOSPICE & PALLIATIVE MEDICINE 05/22/21 Juan Francisco Hutchinson, EDUCATIONAL RESOURCE COORDINATOR.STATE COMPTROLLER [address] [place] [address] Palliative Medicine Provider HOSPICE & PALLIATIVE MEDICINE 06/28/21 Kylie Mosher RN Specialty Board Handler HOSPICE & PALLIATIVE MEDICINE 09/27/21 Light Rail Operator Relationship Specialty [place] [address] [place] [address] PCP - General Internal Medicine 05/07/16 [place] [address] [place] [address] Consulting Hematology/Oncology 01/28/12 [place] [address] [place] [address] Specialty Board Handler Hematology/Oncology 11/09/19 [place] [address] [place] [address] Hematology/Oncology 03/30/21 Kristina Pete, RN Specialty Board Handler HOSPICE & PALLIATIVE MEDICINE 05/22/21 Juan Francisco Hutchinson, EDUCATIONAL RESOURCE COORDINATOR.STATE COMPTROLLER [address] [place] [address] Palliative Medicine Provider HOSPICE & PALLIATIVE MEDICINE 06/28/21 Kylie Mosher, MAE Specialty Board Handler HOSPICE & PALLIATIVE MEDICINE 09/27/21 Light Rail Operator Relationship Specialty [place] [address] [place] [address] PCP - General Internal Medicine 05/07/16 [place] [address] [place] [address] Consulting Hematology/Oncology 01/28/12 [place] [address] [place] [address] Specialty Board Handler Hematology/Oncology 11/09/19 [place] [address] [place] [address] Hematology/Oncology 03/30/21 Kristina Pete, MAE Specialty Board Handler HOSPICE & PALLIATIVE MEDICINE 05/22/21 Juan Francisco Hutchinson, EDUCATIONAL RESOURCE COORDINATOR.STATE COMPTROLLER [address] [place] [address] Palliative Medicine Provider HOSPICE & PALLIATIVE MEDICINE 06/28/21 Kylie Mosher RN Specialty Board Handler HOSPICE & PALLIATIVE MEDICINE 09/27/21 Light Rail Operator Relationship Specialty Start [place] [address] PCP - General Internal Medicine 05/07/16 [place] [address] Consulting Hematology/Oncology 01/28/12 Marilyn Hughes, RN [phone] [place] [address] Specialty Board Handler Hematology/Oncology 11/09/19 [place] [address] Hematology/Oncology 03/30/21 Kristina Pete, RN Specialty Board Handler HOSPICE & PALLIATIVE MEDICINE 05/22/21 Juan Francisco Hutchinson, EDUCATIONAL RESOURCE COORDINATOR.STATE COMPTROLLER [address] [place] [address] Palliative Medicine Provider HOSPICE & PALLIATIVE MEDICINE 06/28/21 Kylie Mosher, RN Specialty Board Handler HOSPICE & PALLIATIVE MEDICINE 09/27/21 Light Rail Operator Relationship Specialty Start [place] [address] PCP - General Internal Medicine 05/07/16 [place] [address] Consulting Hematology/Oncology 01/28/12 Marilyn Hughes, MAE [address] [place] [address] Specialty Board Handler Hematology/Oncology 11/09/19 [place] [address] [place] [address] Hematology/Oncology 03/30/21 Kristina Pete, MAE Specialty Board Handler HOSPICE & PALLIATIVE MEDICINE 05/22/21 Juan Francisco Hutchinson, EDUCATIONAL RESOURCE COORDINATOR.STATE COMPTROLLER [address] [place] [address] Palliative Medicine Provider HOSPICE & PALLIATIVE MEDICINE 06/28/21 Kylie Mosher, RN Specialty Board Handler HOSPICE & PALLIATIVE MEDICINE 09/27/21 Light Rail Operator Relationship Specialty [place] [address] [place] [address] PCP - General Internal Medicine 05/07/16 [place] [address] [place] [address] Consulting Hematology/Oncology 01/28/12 [place] [address] [place] [address] Specialty Board Handler Hematology/Oncology 11/09/19 [place] [address] [place] [address] Hematology/Oncology 03/30/21 Kristina Pete, MAE Specialty Board Handler HOSPICE & PALLIATIVE MEDICINE 05/22/21 Juan Francisco Hutchinson, EDUCATIONAL RESOURCE COORDINATOR.STATE COMPTROLLER [address] [place] [address] Palliative Medicine Provider HOSPICE & PALLIATIVE MEDICINE 06/28/21 Kylie Mosher, RN Specialty Board Handler HOSPICE & PALLIATIVE MEDICINE 09/27/21 Light Rail Operator Relationship Specialty [place] [address] [place] [address] PCP - General Internal Medicine 05/07/16 [place] [address] [place] [address] Consulting Hematology/Oncology 01/28/12 [place] [address] [place] [address] Specialty Board Handler Hematology/Oncology 11/09/19 [place] [address] [place] [address] Hematology/Oncology 03/30/21 Kristina Pete, RN Specialty Board Handler HOSPICE & PALLIATIVE MEDICINE 05/22/21 Juan Francisco Hutchinson, EDUCATIONAL RESOURCE COORDINATOR.STATE COMPTROLLER [address] [place] [address] Palliative Medicine Provider HOSPICE & PALLIATIVE MEDICINE 06/28/21 Kylie Mosher RN Specialty Board Handler HOSPICE & PALLIATIVE MEDICINE 09/27/21 Light Rail Operator Relationship Specialty [place] [address] [place] [address] PCP - General Internal Medicine 05/07/16 [place] [address] [place] [address] Consulting Hematology/Oncology 01/28/12 [place] [address] [place] [address] Specialty Board Handler Hematology/Oncology 11/09/19 [place] [address] [place] [address] Hematology/Oncology 03/30/21 Kristina Pete, MAE Specialty Board Handler HOSPICE & PALLIATIVE MEDICINE 05/22/21 Juan Francisco Hutchinson, EDUCATIONAL RESOURCE COORDINATOR.STATE COMPTROLLER [address] [place] [address] Palliative Medicine Provider HOSPICE & PALLIATIVE MEDICINE 06/28/21 Nomi, Kylie L, RN Specialty Board Handler HOSPICE & PALLIATIVE MEDICINE 09/27/21 Light Rail Operator Relationship Specialty [place] [address] [place] [address] PCP - General Internal Medicine 05/07/16 Cyn Ramires MD [id number] [place] [address] Consulting Hematology/Oncology 01/28/12 Marilyn uHghes, RN [phone] [place] [address] Specialty Board Handler Hematology/Oncology 11/09/19 Cyn Ramires MD [address] [place] [address] Hematology/Oncology 03/30/21 Kristina Pete, MAE Specialty Board Handler HOSPICE & PALLIATIVE MEDICINE 05/22/21 Juan Francisco Hutchinson, EDUCATIONAL RESOURCE COORDINATOR.STATE COMPTROLLER [address] [place] [address] Palliative Medicine Provider HOSPICE & PALLIATIVE MEDICINE 06/28/21 Kylie Mosher, RN Specialty Board Handler HOSPICE & PALLIATIVE MEDICINE 09/27/21 Light Rail Operator Relationship Specialty Start Date End Date Jose Vail MD [id number] [place] [address] PCP - General Internal Medicine 05/07/16 [place] [address] [place] [address] Consulting Hematology/Oncology 01/28/12 Marilyn Hughes, MAE [id number] [place] [address] Specialty Board Handler Hematology/Oncology 11/09/19 Cyn Ramires MD [id number] [place] [address] Hematology/Oncology 03/30/21 Kristina Pete, MAE Specialty Board Handler HOSPICE & PALLIATIVE MEDICINE 05/22/21 Juan Francisco Hutchinson, EDUCATIONAL RESOURCE COORDINATOR.STATE COMPTROLLER [address] [place] [address] Palliative Medicine Provider HOSPICE & PALLIATIVE MEDICINE 06/28/21 Kylie Mosher, RN Specialty Board Handler HOSPICE & PALLIATIVE MEDICINE 09/27/21 Light Rail Operator Relationship Specialty [place] [address] [place] [address] PCP - General Internal Medicine 05/07/16 [place] [address] [place] [address] Consulting Hematology/Oncology 01/28/12 [place] MAE [address] [place] [address] Specialty Board Handler Hematology/Oncology 11/09/19 [place] [address] [place] [address] Hematology/Oncology 03/30/21 Kristina Pete, MAE Specialty Board Handler HOSPICE & PALLIATIVE MEDICINE 05/22/21 Juan Francisco Hutchinson, EDUCATIONAL RESOURCE COORDINATOR.STATE COMPTROLLER [address] [place] [address] Palliative Medicine Provider HOSPICE & PALLIATIVE MEDICINE 06/28/21 Kylie Mosher, RN Specialty Board Handler HOSPICE & PALLIATIVE MEDICINE 09/27/21 Light Rail Operator Relationship Specialty [place] [address] [place] [address] PCP - General Internal Medicine 05/07/16 [place] [address] [place] [address] Consulting Hematology/Oncology 01/28/12 [place] [address] [place] [address] Specialty Board Handler Hematology/Oncology 11/09/19 [place] [address] [place] [address] Hematology/Oncology 03/30/21 Kristina Pete, RN Specialty Board Handler HOSPICE & PALLIATIVE MEDICINE 05/22/21 Juan Francisco Hutchinson, EDUCATIONAL RESOURCE COORDINATOR.STATE COMPTROLLER [address] [place] [address] Palliative Medicine Provider HOSPICE & PALLIATIVE MEDICINE 06/28/21 Kylie Mosher RN Specialty Board Handler HOSPICE & PALLIATIVE MEDICINE 09/27/21 Light Rail Operator Relationship Specialty [place] [address] [place] [address] PCP - General Internal Medicine 05/07/16 [place] [address] [place] [address] Consulting Hematology/Oncology 01/28/12 [place] [address] [place] [address] Specialty Board Handler Hematology/Oncology 11/09/19 [place] [address] [place] [address] Hematology/Oncology 03/30/21 Kristina Pete, RN Specialty Board Handler HOSPICE & PALLIATIVE MEDICINE 05/22/21 Juan Francisco Hutchinson, EDUCATIONAL RESOURCE COORDINATOR.STATE COMPTROLLER [address] [place] [address] Palliative Medicine Provider HOSPICE & PALLIATIVE MEDICINE 06/28/21 Kylie Mosher, RN Specialty Board Handler HOSPICE & PALLIATIVE MEDICINE 09/27/21 Light Rail Operator Relationship Specialty Start [place] [address] PCP - General Internal Medicine 05/07/16 [place] [address] Consulting Hematology/Oncology 01/28/12 Marilyn Hughes, RN [phone] [place] [address] Specialty Board Handler Hematology/Oncology 11/09/19 [place] [address] [place] [address] Hematology/Oncology 03/30/21 Kristina Pete, MAE Specialty Board Handler HOSPICE & PALLIATIVE MEDICINE 05/22/21 Juan Francisco Hutchinson, EDUCATIONAL RESOURCE COORDINATOR.STATE COMPTROLLER [address] [place] [address] Palliative Medicine Provider HOSPICE & PALLIATIVE MEDICINE 06/28/21 Kylie Mosher, RN Specialty Board Handler HOSPICE & PALLIATIVE MEDICINE 09/27/21 Light Rail Operator Relationship Specialty Start [place] [address] PCP - General Internal Medicine 05/07/16 [place] [address] [place] [address] Consulting Hematology/Oncology 01/28/12 [place] [address] [place] [address] Specialty Board Handler Hematology/Oncology 11/09/19 [place] [address] [place] [address] Hematology/Oncology 03/30/21 Kristina Pete, RN Specialty Board Handler HOSPICE & PALLIATIVE MEDICINE 05/22/21 Juan Francisco Hutchinson, EDUCATIONAL RESOURCE COORDINATOR.STATE COMPTROLLER [address] [place] [address] Palliative Medicine Provider HOSPICE & PALLIATIVE MEDICINE 06/28/21 Kylie Mosher, RN Specialty Board Handler HOSPICE & PALLIATIVE MEDICINE 09/27/21 Light Rail Operator Relationship Specialty [place] [address] [place] [address] PCP - General Internal Medicine 05/07/16 [place] [address] [place] [address] Consulting Hematology/Oncology 01/28/12 Marilyn Hughes, MAE [address] [place] [address] Specialty Board Handler Hematology/Oncology 11/09/19 [place] [address] [place] [address] Hematology/Oncology 03/30/21 Kristina Pete, RN Specialty Board Handler HOSPICE & PALLIATIVE MEDICINE 05/22/21 Juan Francisco Hutchinson, EDUCATIONAL RESOURCE COORDINATOR.STATE COMPTROLLER [address] [place] [address] Palliative Medicine Provider HOSPICE & PALLIATIVE MEDICINE 06/28/21 Kylie Mosher, RN Specialty Board Handler HOSPICE & PALLIATIVE MEDICINE 09/27/21 Light Rail Operator Relationship Specialty [place] [address] [place] [address] PCP - General Internal Medicine 05/07/16 [place] [address] [place] [address] Consulting Hematology/Oncology 01/28/12 [place] [address] [place] [address] Specialty Board Handler Hematology/Oncology 11/09/19 [place] [address] [place] [address] Hematology/Oncology 03/30/21 Kristina Pete, RN Specialty Board Handler HOSPICE & PALLIATIVE MEDICINE 05/22/21 Juan Francisco Hutchinson, EDUCATIONAL RESOURCE COORDINATOR.STATE COMPTROLLER [address] [place] [address] Palliative Medicine Provider HOSPICE & PALLIATIVE MEDICINE 06/28/21 Kylie Mosher RN Specialty Board Handler HOSPICE & PALLIATIVE MEDICINE 09/27/21 Light Rail Operator Relationship Specialty [place] [address] [place] [address] PCP - General Internal Medicine 05/07/16 [place] [address] [place] [address] Consulting Hematology/Oncology 01/28/12 [place] [address] [place] [address] Specialty Board Handler Hematology/Oncology 11/09/19 [place] [address] [place] [address] Hematology/Oncology 03/30/21 Kristina Pete, RN Specialty Board Handler HOSPICE & PALLIATIVE MEDICINE 05/22/21 Juan Francisco Hutchinson, EDUCATIONAL RESOURCE COORDINATOR.STATE COMPTROLLER [address] [place] [address] Palliative Medicine Provider HOSPICE & PALLIATIVE MEDICINE 06/28/21 Kylie Mosher, RN Specialty Board Handler HOSPICE & PALLIATIVE MEDICINE 09/27/21 Light Rail Operator Relationship Specialty Start [place] [address] PCP - General Internal Medicine 05/07/16 [place] [address] [place] [address] Consulting Hematology/Oncology 01/28/12 [place] [address] Hematology/Oncology 03/30/21 Kristina Pete, MAE Specialty Board Handler HOSPICE & PALLIATIVE MEDICINE 05/22/21 Juan Francisco Hutchinson, EDUCATIONAL RESOURCE COORDINATOR.STATE COMPTROLLER [address] [place] [address] Palliative Medicine Provider HOSPICE & PALLIATIVE MEDICINE 06/28/21 Kylie Mosher, RN Specialty Board Handler HOSPICE & PALLIATIVE MEDICINE 09/27/21 Light Rail Operator Relationship Specialty Start [place] [address] PCP - General Internal Medicine 05/07/16 [place] [address] [place] [address] Consulting Hematology/Oncology 01/28/12 [place] [address] [place] [address] Hematology/Oncology 03/30/21 Kristina Pete, MAE Specialty Board Handler HOSPICE & PALLIATIVE MEDICINE 05/22/21 Juan Francisco Hutchinson, EDUCATIONAL RESOURCE COORDINATOR.STATE COMPTROLLER [address] [place] [address] Palliative Medicine Provider HOSPICE & PALLIATIVE MEDICINE 06/28/21 Kylie Mosher, RN Specialty Board Handler HOSPICE & PALLIATIVE MEDICINE 09/27/21 Light Rail Operator Relationship Specialty Start Date End Date Jose [facility]ail [facility] [address] PCP - General Internal Medicine 05/07/16 [place] [address] [place] [address] Consulting Hematology/Oncology 01/28/12 [place] [address] Hematology/Oncology 03/30/21 Kristina Pete, MAE Specialty Board Handler HOSPICE & PALLIATIVE MEDICINE 05/22/21 Juan Francisco Hutchinson, EDUCATIONAL RESOURCE COORDINATOR.STATE COMPTROLLER [address] [place] [address] Palliative Medicine Provider HOSPICE & PALLIATIVE MEDICINE 06/28/21 Kylie Mosher, RN Specialty Board Handler HOSPICE & PALLIATIVE MEDICINE 09/27/21 Light Rail Operator Relationship Specialty Start [place] [address] PCP - General Internal Medicine 05/07/16 [place] [address] [place] [address] Consulting Hematology/Oncology 01/28/12 [place] [address] [place] [address] Hematology/Oncology 03/30/21 Kristina Pete, MAE Specialty Board Handler HOSPICE & PALLIATIVE MEDICINE 05/22/21 Juan Francisco Hutchinson, EDUCATIONAL RESOURCE COORDINATOR.STATE COMPTROLLER [address] [place] [address] Palliative Medicine Provider HOSPICE & PALLIATIVE MEDICINE 06/28/21 Kylie Mosher, RN Specialty Board Handler HOSPICE & PALLIATIVE MEDICINE 09/27/21 Light Rail Operator Relationship Specialty [place] [address] [place] [address] PCP - General Internal Medicine 05/07/16 [place] [address] [place] [address] Consulting Hematology/Oncology 01/28/12 [place] [address] [place] [address] Hematology/Oncology 03/30/21 Kristina Pete, MAE Specialty Board Handler HOSPICE & PALLIATIVE MEDICINE 05/22/21 Juan Francisco Hutchinson, EDUCATIONAL RESOURCE COORDINATOR.STATE COMPTROLLER [address] [place] [address] Palliative Medicine Provider HOSPICE & PALLIATIVE MEDICINE 06/28/21 Kylie Mosher, RN Specialty Board Handler HOSPICE & PALLIATIVE MEDICINE 09/27/21 Light Rail Operator Relationship Specialty [place] [address] [place] [address] PCP - General Internal Medicine 05/07/16 [place] [address] [place] [address] Consulting Hematology/Oncology 01/28/12 [place] [address] [place] [address] Hematology/Oncology 03/30/21 Kristina Pete, MAE Specialty Board Handler HOSPICE & PALLIATIVE MEDICINE 05/22/21 Juan Francisco Hutchinson, EDUCATIONAL RESOURCE COORDINATOR.STATE COMPTROLLER [address] [place] [address] Palliative Medicine Provider HOSPICE & PALLIATIVE MEDICINE 06/28/21 Kylie Mosher, RN Specialty Board Handler HOSPICE & PALLIATIVE MEDICINE 09/27/21 Light Rail Operator Relationship Specialty [place] [address] [place] [address] PCP - General Internal Medicine 05/07/16 [place] [address] [place] [address] Consulting Hematology/Oncology 01/28/12 [place] [address] [place] [address] Hematology/Oncology 03/30/21 Kristina Pete, MAE Specialty Board Handler HOSPICE & PALLIATIVE MEDICINE 05/22/21 Juan Francisco Hutchinson, EDUCATIONAL RESOURCE COORDINATOR.STATE COMPTROLLER [address] [place] [address] Palliative Medicine Provider HOSPICE & PALLIATIVE MEDICINE 06/28/21 Kylie Mosher, RN Specialty Board Handler HOSPICE & PALLIATIVE MEDICINE 09/27/21 Light Rail Operator Relationship Specialty [place] [address] [place] [address] PCP - General Internal Medicine 05/07/16 [place] [address] [place] [address] Consulting Hematology/Oncology 01/28/12 [place] [address] [place] [address] Hematology/Oncology 03/30/21 Kristina Pete, RN Specialty Board Handler HOSPICE & PALLIATIVE MEDICINE 05/22/21 Juan Francisco Hutchinson, EDUCATIONAL RESOURCE COORDINATOR.STATE COMPTROLLER [address] [place] [address] Palliative Medicine Provider HOSPICE & PALLIATIVE MEDICINE 06/28/21 Kylie Mosher, RN Specialty Board Handler HOSPICE & PALLIATIVE MEDICINE 09/27/21 Light Rail Operator Relationship Specialty [place] [address] [place] [address] PCP - General Internal Medicine 05/07/16 [place] [address] [place] [address] Consulting Hematology/Oncology 01/28/12 [place] [address] [place] [address] Hematology/Oncology 03/30/21 Kristina Pete, RN Specialty Board Handler HOSPICE & PALLIATIVE MEDICINE 05/22/21 Juan Francisco Hutchinson, EDUCATIONAL RESOURCE COORDINATOR.STATE COMPTROLLER [address] [place] [address] Palliative Medicine Provider HOSPICE & PALLIATIVE MEDICINE 06/28/21 Kylie Mosher, RN Specialty Board Handler HOSPICE & PALLIATIVE MEDICINE 09/27/21 Light Rail Operator Relationship Specialty [place] [address] [place] [address] PCP - General Internal Medicine 05/07/16 [place] [address] [place] [address] Consulting Hematology/Oncology 01/28/12 [place] [address] [place] [address] Hematology/Oncology 03/30/21 Kristina Pete, RN Specialty Board Handler HOSPICE & PALLIATIVE MEDICINE 05/22/21 Juan Francisco Hutchinson, EDUCATIONAL RESOURCE COORDINATOR.STATE COMPTROLLER [address] [place] [address] Palliative Medicine Provider HOSPICE & PALLIATIVE MEDICINE 06/28/21 Kylie Mosher, RN Specialty Board Handler HOSPICE & PALLIATIVE MEDICINE 09/27/21 Light Rail Operator Relationship Specialty [place] [address] [place] [address] PCP - General Internal Medicine 05/07/16 [place] [address] [place] [address] Consulting Hematology/Oncology 01/28/12 [place] [address] [place] [address] Hematology/Oncology 03/30/21 Kristina Pete, RN Specialty Board Handler HOSPICE & PALLIATIVE MEDICINE 05/22/21 Juan Francisco Hutchinson, EDUCATIONAL RESOURCE COORDINATOR.STATE COMPTROLLER [address] [place] [address] Palliative Medicine Provider HOSPICE & PALLIATIVE MEDICINE 06/28/21 Kylie Mosher, RN Specialty Board Handler HOSPICE & PALLIATIVE MEDICINE 09/27/21 Light Rail Operator Relationship Specialty [place] [address] [place] [address] PCP - General Internal Medicine 05/07/16 [place] [address] [place] [address] Consulting Hematology/Oncology 01/28/12 [place] [address] [place] [address] Hematology/Oncology 03/30/21 Kristina Pete, MAE Specialty Board Handler HOSPICE & PALLIATIVE MEDICINE 05/22/21 Juan Francisco Hutchinson, EDUCATIONAL RESOURCE COORDINATOR.STATE COMPTROLLER [address] [place] [address] Palliative Medicine Provider HOSPICE & PALLIATIVE MEDICINE 06/28/21 Kylie Mosher, RN Specialty Board Handler HOSPICE & PALLIATIVE MEDICINE 09/27/21 Light Rail Operator Relationship Specialty [place] [address] [place] [address] PCP - General Internal Medicine 05/07/16 [place] [address] [place] [address] Consulting Hematology/Oncology 01/28/12 [place] [address] [place] [address] Hematology/Oncology 03/30/21 Kristina Pete, RN Specialty Board Handler HOSPICE & PALLIATIVE MEDICINE 05/22/21 Juan Francisco Hutchinson, EDUCATIONAL RESOURCE COORDINATOR.STATE COMPTROLLER [address] [place] [address] Palliative Medicine Provider HOSPICE & PALLIATIVE MEDICINE 06/28/21 Kylie Mosher, RN Specialty Board Handler HOSPICE & PALLIATIVE MEDICINE 09/27/21 Light Rail Operator Relationship Specialty [place] [address] [place] [address] PCP - General Internal Medicine 05/07/16 [place] [address] [place] [address] Consulting Hematology/Oncology 01/28/12 [place] [address] [place] [address] Hematology/Oncology 03/30/21 Kristina Pete, MAE Specialty Board Handler HOSPICE & PALLIATIVE MEDICINE 05/22/21 Juan Francisco Hutchinson, EDUCATIONAL RESOURCE COORDINATOR.STATE COMPTROLLER [address] [place] [address] Palliative Medicine Provider HOSPICE & PALLIATIVE MEDICINE 06/28/21 Kylie Mosher RN Specialty Board Handler HOSPICE & PALLIATIVE MEDICINE 09/27/21 Light Rail Operator Relationship Specialty [place] [address] [place] [address] PCP - General Internal Medicine 05/07/16 [place] [address] [place] [address] Consulting Hematology/Oncology 01/28/12 [place] [address] [place] [address] Hematology/Oncology 03/30/21 Kristina Pete, RN Specialty Board Handler HOSPICE & PALLIATIVE MEDICINE 05/22/21 Juan Francisco Hutchinson, EDUCATIONAL RESOURCE COORDINATOR.STATE COMPTROLLER [address] [place] [address] Palliative Medicine Provider HOSPICE & PALLIATIVE MEDICINE 06/28/21 Kylie Mosher, RN Specialty Board Handler HOSPICE & PALLIATIVE MEDICINE 09/27/21 Light Rail Operator Relationship Specialty [place] [address] [place] [address] PCP - General Internal Medicine 05/07/16 [place] [address] [place] [address] Consulting Hematology/Oncology 01/28/12 [place] [address] [place] [address] Hematology/Oncology 03/30/21 Kristina Pete, RN Specialty Board Handler HOSPICE & PALLIATIVE MEDICINE 05/22/21 Juan Francisco Hutchinson, EDUCATIONAL RESOURCE COORDINATOR.STATE COMPTROLLER [address] [place] [address] Palliative Medicine Provider HOSPICE & PALLIATIVE MEDICINE 06/28/21 Kylie Mosher, RN Specialty Board Handler HOSPICE & PALLIATIVE MEDICINE 09/27/21 Light Rail Operator Relationship Specialty [place] [address] [place] [address] PCP - General Internal Medicine 05/07/16 [place] [address] [place] [address] Consulting Hematology/Oncology 01/28/12 [place] [address] [place] [address] Hematology/Oncology 03/30/21 Juan Francisco Hutchinson, EDUCATIONAL RESOURCE COORDINATOR.STATE COMPTROLLER [address] [place] [address] Palliative Medicine Provider HOSPICE & PALLIATIVE MEDICINE 06/28/21 Kylie Mosher, RN Specialty Board Handler HOSPICE & PALLIATIVE MEDICINE 09/27/21 Light Rail Operator Relationship Specialty [place] [address] [place] [address] PCP - General Internal Medicine 05/07/16 [place] [address] [place] [address] Consulting Hematology/Oncology 01/28/12 [place] [address] [place] [address] Hematology/Oncology 03/30/21 Juan Francisco Hutchinson, EDUCATIONAL RESOURCE COORDINATOR.STATE COMPTROLLER [address] [place] [address] Palliative Medicine Provider HOSPICE & PALLIATIVE MEDICINE 06/28/21 Kylie Mosher, RN Specialty Board Handler HOSPICE & PALLIATIVE MEDICINE 09/27/21 Light Rail Operator Relationship Specialty [place] [address] [place] [address] PCP - General Internal Medicine 05/07/16 [place] [address] [place] [address] Consulting Hematology/Oncology 01/28/12 [place] [address] [place] [address] Hematology/Oncology 03/30/21 Juan Francisco Hutchinson, EDUCATIONAL RESOURCE COORDINATOR.STATE COMPTROLLER [address] [place] [address] Palliative Medicine Provider HOSPICE & PALLIATIVE MEDICINE 06/28/21 Kylie Mosher, RN Specialty Board Handler HOSPICE & PALLIATIVE MEDICINE 09/27/21 Light Rail Operator Relationship Specialty [place] [address] [place] [address] PCP - General Internal Medicine 05/07/16 [place] [address] [place] [address] Consulting Hematology/Oncology 01/28/12 [place] [address] [place] [address] Hematology/Oncology 03/30/21 Juan Francisco Hutchinson, EDUCATIONAL RESOURCE COORDINATOR.STATE COMPTROLLER [address] [place] [address] Palliative Medicine Provider HOSPICE & PALLIATIVE MEDICINE 06/28/21 Kylie Mosher RN Specialty Board Handler HOSPICE & PALLIATIVE MEDICINE 09/27/21 Light Rail Operator Relationship Specialty [place] [address] [facility] [place] [place] [address] PCP - General Internal Medicine 05/07/16 [place] [address] [facility] [place] [address] Consulting Hematology/Oncology 01/28/12 [place] [address] [facility] [place] [address] Hematology/Oncology 03/30/21 Juan Francisco Hutchinson, EDUCATIONAL RESOURCE COORDINATOR.STATE COMPTROLLER [address] [place] [address] Palliative Medicine Provider HOSPICE & PALLIATIVE MEDICINE 06/28/21 Kylie Mosher RN Specialty Board Handler HOSPICE & PALLIATIVE MEDICINE 09/27/21 Light Rail Operator Relationship Specialty [place] [address] [place] [address] PCP - General Internal Medicine 05/07/16 [place] [address] [facility] [place] [address] Consulting Hematology/Oncology 01/28/12 [place] [address] [facility] [place] [address] Hematology/Oncology 03/30/21 Juan Francisco Hutchinson, EDUCATIONAL RESOURCE COORDINATOR.STATE COMPTROLLER [address] [facility] [place] [address] Palliative Medicine Provider HOSPICE & PALLIATIVE MEDICINE 06/28/21 Kylie Mosher, RN Specialty Board Handler HOSPICE & PALLIATIVE MEDICINE 09/27/21 Light Rail Operator Relationship Specialty [place] [address] [facility] [place] [address] PCP - General Internal Medicine 05/07/16 [place] [address] [facility] [address] Consulting Hematology/Oncology 01/28/12 [place] [address] [facility] [address] Hematology/Oncology 03/30/21 Juan Francisco Hutchinson, EDUCATIONAL RESOURCE COORDINATOR.STATE COMPTROLLER [address] [place] [address] Palliative Medicine Provider HOSPICE & PALLIATIVE MEDICINE 06/28/21 Kylie Mosher, MAE Specialty Board Handler HOSPICE & PALLIATIVE MEDICINE 09/27/21 Light Rail Operator Relationship Specialty [place] [address] [place] [address] PCP - General Internal Medicine 05/07/16 [place] [address] [place] [address] Consulting Hematology/Oncology 01/28/12 [place] [address] [place] [address] Hematology/Oncology 03/30/21 Juan Francisco Hutchinson, EDUCATIONAL RESOURCE COORDINATOR.STATE COMPTROLLER [facility] [place] [id number] Palliative Medicine Provider HOSPICE & PALLIATIVE MEDICINE 06/28/21 Kylie Mosher, RN Specialty Board Handler HOSPICE & PALLIATIVE MEDICINE 09/27/21 Light Rail Operator Relationship Specialty [place] [address] [place] [address] PCP - General Internal Medicine 05/07/16 [place] [address] [facility] [place] [address] Consulting Hematology/Oncology 01/28/12 [place] [address] [facility] [place] [address] Hematology/Oncology 03/30/21 Juan Francisco Hutchinson, LORY.STATE COMPTROLLER [address] [place] [id number] Palliative Medicine Provider HOSPICE & PALLIATIVE MEDICINE 06/28/21 Kylie Mosher, RN Specialty Board Handler HOSPICE & PALLIATIVE MEDICINE 09/27/21 Light Rail Operator Relationship Specialty [place] [address] [facility] [place] [place] [address] PCP - General Internal Medicine 05/07/16 [place] [address] [facility] [place] [address] Consulting Hematology/Oncology 01/28/12 [place] [address] [facility] [place] [address] Hematology/Oncology 03/30/21 Kristina Pete, MAE Specialty Board Handler HOSPICE & PALLIATIVE MEDICINE 05/22/21 08/06/22 Juan Francisco Hutchinson, EDUCATIONAL RESOURCE COORDINATOR.STATE COMPTROLLER [address] [place] [address] Palliative Medicine Provider HOSPICE & PALLIATIVE MEDICINE 06/28/21 Kylie Mosher, RN Specialty Board Handler HOSPICE & PALLIATIVE MEDICINE 09/27/21 Light Rail Operator Relationship Specialty [place] [address] [place] [address] PCP - General Internal Medicine 05/07/16 [place] [address] [place] [address] Consulting Hematology/Oncology 01/28/12 [place] [address] [place] [address] Hematology/Oncology 03/30/21 Juan Francisco Hutchinson, EDUCATIONAL RESOURCE COORDINATOR.STATE COMPTROLLER [address] [place] [address] Palliative Medicine Provider HOSPICE & PALLIATIVE MEDICINE 06/28/21 Kylie Mosher, RN Specialty Board Handler HOSPICE & PALLIATIVE MEDICINE 09/27/21 Light Rail Operator Relationship Specialty [place] [address] [place] [address] PCP - General Internal Medicine 05/07/16 [place] [address] [place] [address] Consulting Hematology/Oncology 01/28/12 [place] [address] [place] [address] Hematology/Oncology 03/30/21 Juan Francisco Hutchinson, EDUCATIONAL RESOURCE COORDINATOR.STATE COMPTROLLER [address] [place] [id number] Palliative Medicine Provider HOSPICE & PALLIATIVE MEDICINE 06/28/21 Kylie Mosher, RN Specialty Board Handler HOSPICE & PALLIATIVE MEDICINE 09/27/21 Light Rail Operator Relationship Specialty [place] [address] [place] [address] PCP - General Internal Medicine 05/07/16 [place] [address] [facility] [place] [address] Consulting Hematology/Oncology 01/28/12 [place] [address] [facility] [place] [address] Hematology/Oncology 03/30/21 Juan Francisco Hutchinson, EDUCATIONAL RESOURCE COORDINATOR.STATE COMPTROLLER [address] [place] [address] Palliative Medicine Provider HOSPICE & PALLIATIVE MEDICINE 06/28/21 Kylie Mosher, RN Specialty Board Handler HOSPICE & PALLIATIVE MEDICINE 09/27/21 Light Rail Operator Relationship Specialty [place] [address] [place] [address] PCP - General Internal Medicine 05/07/16 [place] [address] [facility] [place] [address] Consulting Hematology/Oncology 01/28/12 [place] [address] [place] [address] Hematology/Oncology 03/30/21 Juan Francisco Hutchinson, EDUCATIONAL RESOURCE COORDINATOR.STATE COMPTROLLER [address] [place] [address] Palliative Medicine Provider HOSPICE & PALLIATIVE MEDICINE 06/28/21 Kylie Mosher, RN Specialty Board Handler HOSPICE & PALLIATIVE MEDICINE 09/27/21 Light Rail Operator Relationship Specialty [place] [address] [place] [address] PCP - General Internal Medicine 05/07/16 [place] [address] [place] [address] Consulting Hematology/Oncology 01/28/12 [place] [address] [place] [address] Hematology/Oncology 03/30/21 Juan Francisco Hutchinson, EDUCATIONAL RESOURCE COORDINATOR.STATE COMPTROLLER [address] [place] [address] Palliative Medicine Provider HOSPICE & PALLIATIVE MEDICINE 06/28/21 Kylie Mosher, RN Specialty Board Handler HOSPICE & PALLIATIVE MEDICINE 09/27/21 Light Rail Operator Relationship Specialty [place] [address] [place] [address] PCP - General Internal Medicine 05/07/16 [place] [address] [place] [address] Consulting Hematology/Oncology 01/28/12 [place] [address] [place] [address] Hematology/Oncology 03/30/21 Juan Francisco Hutchinson, EDUCATIONAL RESOURCE COORDINATOR.STATE COMPTROLLER [address] [place] [address] Palliative Medicine Provider HOSPICE & PALLIATIVE MEDICINE 06/28/21 Kylie Mosher, RN Specialty Board Handler HOSPICE & PALLIATIVE MEDICINE 09/27/21 Light Rail Operator Relationship Specialty [place] [address] [facility] [place] [address] PCP - General Internal Medicine 05/07/16 [place] [address] [place] [address] Consulting Hematology/Oncology 01/28/12 [place] [address] [place] [address] Hematology/Oncology 03/30/21 Juan Francisco Hutchinson, EDUCATIONAL RESOURCE COORDINATOR.STATE COMPTROLLER [address] [place] [address] Palliative Medicine Provider HOSPICE & PALLIATIVE MEDICINE 06/28/21 Kylie Mosher, RN Specialty Board Handler HOSPICE & PALLIATIVE MEDICINE 09/27/21 Light Rail Operator Relationship Specialty [place] [address] [facility] [place] [address] PCP - General Internal Medicine 05/07/16 [place] [address] [place] [address] Consulting Hematology/Oncology 01/28/12 [place] [address] [facility] [address] Hematology/Oncology 03/30/21 Juan Francisco Hutchinson, EDUCATIONAL RESOURCE COORDINATOR.STATE COMPTROLLER [address] [place] [address] Palliative Medicine Provider HOSPICE & PALLIATIVE MEDICINE 06/28/21 Kylie Mosher RN Specialty Board Handler HOSPICE & PALLIATIVE MEDICINE 09/27/21 Light Rail Operator Relationship Specialty [place] [address] [facility] [address] PCP - General Internal Medicine 05/07/16 [place] [address] [facility] [address] Consulting Hematology/Oncology 01/28/12 [place] [address] [facility] [address] Hematology/Oncology 03/30/21 Juan Francisco Hutchinson, EDUCATIONAL RESOURCE COORDINATOR.STATE COMPTROLLER [address] [place] [address] Palliative Medicine Provider HOSPICE & PALLIATIVE MEDICINE 06/28/21 Kylie Mosher RN Specialty Board Handler HOSPICE & PALLIATIVE MEDICINE 09/27/21 Light Rail Operator Relationship Specialty [place] [address] [place] [address] PCP - General Internal Medicine 05/07/16 [place] [address] [place] [address] Consulting Hematology/Oncology 01/28/12 [place] [address] [place] [address] Hematology/Oncology 03/30/21 Juan Francisco Hutchinson, EDUCATIONAL RESOURCE COORDINATOR.STATE COMPTROLLER [address] [place] [phone] Palliative Medicine Provider HOSPICE & PALLIATIVE MEDICINE 06/28/21 Kylie Mosher RN Specialty Board Handler HOSPICE & PALLIATIVE MEDICINE 09/27/21 Light Rail Operator Relationship Specialty [place] [address] [place] [address] PCP - General Internal Medicine 05/07/16 [place] [address] [place] [address] Consulting Hematology/Oncology 01/28/12 [place] [address] [place] [address] Hematology/Oncology 03/30/21 Juan Francisco Hutchinson, EDUCATIONAL RESOURCE COORDINATOR.STATE COMPTROLLER [address] [place] [address] Palliative Medicine Provider HOSPICE & PALLIATIVE MEDICINE 06/28/21 Kylie Mosher RN Specialty Board Handler HOSPICE & PALLIATIVE MEDICINE 09/27/21 Light Rail Operator Relationship Specialty [place] [address] [place] [address] PCP - General Internal Medicine 05/07/16 [place] [address] [place] [address] Consulting Hematology/Oncology 01/28/12 [place] [address] [place] [address] Hematology/Oncology 03/30/21 Juan Francisco Hutchinson, EDUCATIONAL RESOURCE COORDINATOR.STATE COMPTROLLER [address] [place] [address] Palliative Medicine Provider HOSPICE & PALLIATIVE MEDICINE 06/28/21 Kylie Mosher RN Specialty Board Handler HOSPICE & PALLIATIVE MEDICINE 09/27/21 Light Rail Operator Relationship Specialty [place] [address] [place] [address] PCP - General Internal Medicine 05/07/16 [place] [address] [place] [address] Consulting Hematology/Oncology 01/28/12 [place] [address] [place] [address] Hematology/Oncology 03/30/21 Juan Francisco Hutchinson, EDUCATIONAL RESOURCE COORDINATOR.STATE COMPTROLLER [address] [place] [address] Palliative Medicine Provider HOSPICE & PALLIATIVE MEDICINE 06/28/21 Kylie Mosher, RN Specialty Board Handler HOSPICE & PALLIATIVE MEDICINE 09/27/21 Team Status: Active Member Role Status Dates Jose Vail MD Primary Care Provider Active Team Status: Inactive Member Role Status Dates Jose Vail MD Primary Care Provider Active Keke Bright , RUN BOAT OPERATOR-C Attending Provider Active Light Rail Operator Relationship Specialty Start Date End Date Jose Vail MD PCP - General Internal Medicine 05/07/16 Juan Francisco Hutchinson, EDUCATIONAL RESOURCE COORDINATOR.STATE COMPTROLLER [address] [place], [place] [id number] Palliative Medicine Provider Hospice & Palliative Medicine 06/28/21 Kylie Mosher, RN Specialty Board Handler Hospice & Palliative Medicine 09/27/21 Alexsander Ledezma MD [address] [place] [address] [place] [address] Physician Hematology 02/08/23 Linette Skinner, EDUCATIONAL RESOURCE COORDINATOR.STATE COMPTROLLER [address] [place] [address] Referring Nurse Practitioner 02/26/23 Linette Skinner, EDUCATIONAL RESOURCE COORDINATOR.STATE COMPTROLLER [address] [place] [place] [address] Referring Nurse Practitioner 03/06/23 Fabiana Johnson LSW Innovation Manager 03/08/23 Light Rail Operator Relationship Specialty Start Date End Date Jose Vail MD PCP - General Internal Medicine 05/07/16 Juan Francisco Hutchinson, EDUCATIONAL RESOURCE COORDINATOR.STATE COMPTROLLER [address] [place], [place] [id number] Palliative Medicine Provider Hospice & Palliative Medicine 06/28/21 Kylie Mosher, RN Specialty Board Handler Hospice & Palliative Medicine 09/27/21 Alexsander Ledezma MD [address] [place] [address] [place] [address] Physician Hematology 02/08/23 Linette Skinner, EDUCATIONAL RESOURCE COORDINATOR.STATE COMPTROLLER [address] [place] [place] [address] Referring Nurse Practitioner 02/26/23 Linette Skinner, EDUCATIONAL RESOURCE COORDINATOR.STATE COMPTROLLER [address] [place] [address] Referring Nurse Practitioner 03/06/23 Fabiana Johnson LSW Innovation Manager 03/08/23 Light Rail Operator Relationship Specialty Start Date End Date Jose Vail MD PCP - General Internal Medicine 05/07/16 Juan Francisco Hutchinson, EDUCATIONAL RESOURCE COORDINATOR.STATE COMPTROLLER [address] [place] [address] Palliative Medicine Provider Hospice & Palliative Medicine 06/28/21 Kylie Mosher, RN Specialty Board Handler Hospice & Palliative Medicine 09/27/21 Alexsander Ledezma MD [address] [place] [address] [place] [address] Physician Hematology 02/08/23 Linette Skinner, EDUCATIONAL RESOURCE COORDINATOR.STATE COMPTROLLER [address] [place] [place] [address] Referring Nurse Practitioner 02/26/23 Linette Skinner, EDUCATIONAL RESOURCE COORDINATOR.STATE COMPTROLLER [address] [place] [address] Referring Nurse Practitioner 03/06/23 Fabiana Johnson LSW Innovation Manager 03/08/23 Light Rail Operator Relationship Specialty Start Date End Date Jose Vail MD PCP - General Internal Medicine 05/07/16 Juan Francisco Hutchinson, EDUCATIONAL RESOURCE COORDINATOR.STATE COMPTROLLER [address] [place] [address], [place] [address] Palliative Medicine Provider Hospice & Palliative Medicine 06/28/21 Kylie Mosher, RN Specialty Board Handler Hospice & Palliative Medicine 09/27/21 Alexsander Ledezma MD [address] [place] [address] [place] [address] Physician Hematology 02/08/23 Linette Skinner, EDUCATIONAL RESOURCE COORDINATOR.STATE COMPTROLLER [address] [place] [address] Referring Nurse Practitioner 02/26/23 Linette Skinner, EDUCATIONAL RESOURCE COORDINATOR.STATE COMPTROLLER [address] [place] [address] Referring Nurse Practitioner 03/06/23 Fabiana Johnson LSW Innovation Manager 03/08/23 Light Rail Operator Relationship Specialty Start Date End Date Jose Vail MD [address] [place] [address] PCP - [employer] 02/18/22 Jose Vail MD [address] [place] [address] PCP - General Internal Medicine 06/26/22 Light Rail Operator Relationship Specialty Start Date End Date Jose Vail MD PCP - General Internal Medicine 05/07/16 Juan Francisco Hutchinson, EDUCATIONAL RESOURCE COORDINATOR.STATE COMPTROLLER [address] [place] [address] Palliative Medicine Provider Hospice & Palliative Medicine 06/28/21 Kylie Mosher, RN Specialty Board Handler Hospice & Palliative Medicine 09/27/21 Alexsander Ledezma MD [address] [place] [address] [place] [address] Physician Hematology 02/08/23 Linette Skinner, EDUCATIONAL RESOURCE COORDINATOR.STATE COMPTROLLER [address] [place] [address] Referring Nurse Practitioner 02/26/23 Linette Skinner, EDUCATIONAL RESOURCE COORDINATOR.STATE COMPTROLLER [address] [place] [address] Referring Nurse Practitioner 03/06/23 Fabiana Johnson LSW Innovation Manager 03/08/23 Goals (unrecognized section and content) Goals [...] BE BASED ON THE PRIMARY CLINICAL RECORDS. [facility] [employer] [facility]. provides no warranty or guarantee of the accuracy or completeness of information in this document.
== END 2023-04-03 10:20 | disposition home or self-care (01) ==
LOC: ER 04:19 → ICU 12:40 → MS 12:42 → ICU 04-03 10:52 → MS 04-03 10:52
PROVIDERS: Nurse Practitioner Acute Care; Admitting Provider Internal Medicine; Emergency Provider Internal Medicine; Visit Provider Internal Medicine
DX: J10.00 Influenza due to other identified influenza virus with unspecified type of pneumonia (principal); R00.0 Tachycardia, unspecified; R50.9 Fever, unspecified; R06.03 Acute respiratory distress; R79.89 Other specified abnormal findings of blood chemistry; G43.909 Migraine, unspecified, not intractable, without status migrainosus; G47.00 Insomnia, unspecified; Z85.71 Personal history of Hodgkin lymphoma; E03.9 Hypothyroidism, unspecified; Z79.899 Other long term (current) drug therapy; Z79.01 Long term (current) use of anticoagulants; Z86.711 Personal history of pulmonary embolism; Z79.890 Hormone replacement therapy; Z94.84 Stem cells transplant status
CPT/HCPCS: 0202U; 36415; 71046; 80048; 80053; 80076; 81001; 83605; 84145; 84484; 85025; 87040; 94640; 94761; 96365; 96366; 96367; 96375; 96376; 99285; G0378; J0456; J0696; J1110; J2405; J2930

== ENCOUNTER 2023-07-31 21:02 | Observation (INO) | payer MEDICARE, MEDICAID, SELFPAY ==
[2023-07-31] VITALS (20 sets, daily range): BP systolic 89–125; BP diastolic 59–76; PULSE 94–120; TEMP 36.9–37.9; O2SAT 89–98; BMI 28.5
--- NOTE | 2023-07-31 21:36 | ED_ITS ---
HPI - URI/Sore Throat General Chief Complaint: Upper Respiratory Infection Stated Complaint: Upper Injury Fever Headache Time Seen by Provider: 07/31/23 21:14 Source: patient Limitations: no limitations History of Present Illness HPI Narrative: This 43-year-old female who is diagnosed with Hodgkin's lymphoma in 2011 and is currently on Xarelto due to pulmonary embolisms presents for evaluation of multiple complaints. The patient has right distal forearm/wrist pain. 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 She denies any fall. She has tenderness and mild swelling in her distal radius on the right. She also complains of a fever chills and dry cough that started earlier today. She states her boyfriend also woke up feverish. She has a history of restrictive lung disease after receiving radiation to her chest for the Hodgkin's lymphoma. She does not smoke. She denies any abdominal pain. She denies any nausea vomiting diarrhea. She denies any urinary symptoms. She does not have any skin rash. She has a generalized headache. She denies any sore throat. She has no neck pain or stiffness. Related Data Home Medications ?Medication ?Instructions ?Recorded ?Confirmed fluticasone furoate 100 1 inh inhalation QAM 03/31/23 04/02/23 mcg-vilanterol 25 mcg/dose inhalation powder (Breo Ellipta) atenolol 50 mg tablet 50 mg PO BID 04/02/23 07/31/23 cyclobenzaprine 10 mg tablet 10 mg PO TID PRN muscle spasm 04/02/23 07/31/23 dexlansoprazole 30 mg 30 mg PO QAM 04/02/23 07/31/23 capsule,biphase delayed release gabapentin 300 mg capsule 300 mg PO TID 04/02/23 07/31/23 levothyroxine 75 mcg tablet 75 mcg PO .QD 04/02/23 07/31/23 lorazepam 0.5 mg tablet 0.5 mg PO QID PRN anxiety 04/02/23 07/31/23 mirtazapine 30 mg tablet 30 mg PO QPM 04/02/23 07/31/23 oxycodone 10 mg tablet 10 mg PO Q6H PRN pain 04/02/23 07/31/23 rivaroxaban 10 mg tablet (Xarelto) 10 mg PO DAILY 04/02/23 07/31/23 trazodone 100 mg tablet 100 mg PO QPM PRN sleep 04/02/23 07/31/23 trazodone 50 mg tablet 50 mg PO .QHS PRN sleep 04/02/23 07/31/23 fluticasone fur. 200 mcg-umeclid 1 inh inhalation Q24H 07/31/23 07/31/23 62.5 mcg-vilant 25 mcg inhalat.powder (Trelegy Ellipta) pantoprazole 40 mg tablet,delayed 40 mg PO DAILY 07/31/23 07/31/23 release Allergies Allergy/AdvReac Type Severity Reaction Status Date / Time Sulfa (Sulfonamide AdvReac Mild Rash Verified 07/31/23 21:10 Antibiotics) Review of Systems ROS Status of ROS 10 or more systems reviewed and unremark able except as noted in history and below [facility] Medical History (Updated 07/31/23 @ 23:58 by Nova Foster MD) Influenza ?J11.1 - Influenza due to unidentified influenza virus with other respiratory manifestations (ICD-10) Community acquired bacterial pneumonia ?J15.9 - Unspecified bacterial pneumonia (ICD-10) Insomnia ?G47.00 - Insomnia, unspecified (ICD-10) Tachycardia ?R00.0 - Tachycardia, unspecified (ICD-10) Restrictive lung disease ?J98.4 - Other disorders of lung (ICD-10) Hodgkin lymphoma ?C81.90 - Hodgkin lymphoma, unspecified, unspecified site (ICD-10) Surgical History (Updated 04/02/23 @ 08:34 by Rosmery Robert) H/O stem cell transplant ?Z94.84 - Stem cells transplant status (ICD-10) Social History (Updated 04/02/23 @ 08:30 by Rosmery Robert) Within the past year, how often did you have a drink containing alcohol: monthly or less Within the past year, how many standard drinks containing alcohol did you have on a typical day: 1 or 2 Within the past year, how often did you have six or more drinks on one occasion: never Total score: 0 Score interpretation: A score less than 3 is consistent with normal alcohol consumption. Smoking status: Never smoker Non-prescribed substance use: denies use Previous occupational history: unemployed Highest level of school completed/degree received: Associate degree: occupational, technical, vocational program Are you now , , , , never or living with a partner: In a typical week, how many times do you talk on the telephone with family, friends, or neighbors: 3 or more times per week How often do you get together with friends or relatives: 3 or more times per we ek How often do you attend congregation or yazidism services: never Do you belong to any clubs or organizations such as congregation groups unions, [employer] or athletic groups, or school groups: no Total score: 2 Score interpretation: A score of greater than or equal to 2 indicates the lowest level of social isolation. Little interest or pleasure in doing things: not at all Feeling down, depressed, or hopeless: not at all Feel stressed/tense/nervous/anxious/difficulty sleeping: not at all Do you think of yourself as: straight/heterosexual Gender Identity: female Exam Narrative Exam Narrative: Vital signs and Nursing Notes reviewed: Patient is febrile, tachycardic with normal blood pressure, she is hypoxic with pulse ox of 90% on room air General: Awake, alert, oriented, no acute distress, lying comfortably on the stretcher HEENT: Normocephalic atraumatic, mucous membranes are moist and pink, eyes are clear, normal conjunctiva, vision is grossly intact, posterior pharynx is normal in appearance. Neck: Supple, no meningeal signs, no anterior or posterior cervical lymphadenopathy Chest: Scattered expiratory wheezing and rhonchi in bilateral lower lung rodriguez and less so in the upper lung rodriguez, no accessory muscle use, patient is speaking complete sentences, she is mildly hypoxic with pulse ox of 90% on room air CVS: Regular rate and rhythm S1-S2 tachycardic at 120 at triage, no murmurs rubs or gallops, pulses are brisk and equal bilaterally ABD: Soft, nondistended, nontender, no rebound guarding or rigidity, bowel sounds are normal, no pulsatile masses appreciated Extremities: Moving all extremities, no lower extremity tenderness or swelling noted, mild tenderness and swelling at the right distal radius. Radial pulses brisk and equal. Patient has pain with range of motion in this area but no bony deformity noted. Skin: Normal in appearance without rash,pallor, petechiae or purpura Neuro: No focal deficits Constitutional Vital Signs, click to edit/add: Last Vital Signs Temp 100.2 F 07/31/23 21:07 Pulse 96 H 07/31/23 23:07 Resp 18 07/31/23 23:07 BP 102/70 07/31/23 22:34 Pulse Ox 96 07/31/23 23:07 O2 Del Method Nasal Cannula 07/31/23 23:07 O2 Flow Rate 2 07/31/23 23:07 Course Vital Signs Vital signs: Vital Signs Temperature 100.2 F 07/31/23 21:07 Pulse Rate 120 H 07/31/23 21:07 Respiratory Rate 20 07/31/23 21:07 Blood Pressure 125/76 07/31/23 21:07 Pulse Oximetry 90 L 07/31/23 21:07 Oxygen Delivery Method Room Air 07/31/23 21:07 Temperature 100.2 F 07/31/23 21:07 Pulse Rate 96 H 07/31/23 23:07 Respiratory Rate 18 07/31/23 23:07 Blood Pressure 102/70 07/31/23 22:34 Pulse Oximetry 96 07/31/23 23:07 Oxygen Delivery Method Nasal Cannula 07/31/23 23:07 Oxygen Delivery Flow Rate 2 07/31/23 23:07 MDM - URI/Sore Throat MDM Narrative Medical decision making narrative: 43-year-old female, non-smoker, who has a history of Hodgkin's lymphoma in 2011 who underwent radiation therapy and has resultant restrictive lung disease presents for evaluation of fever, cough, headache, body aches, right distal radius pain and swelling. She was concerned that she may have broken her wrist although there was no injury. She does have some mild swelling in her distal radius. Her pulses are brisk and equal. She was noted to be febrile, hypoxic and has bilateral scattered rhonchi on her exam. Her oropharynx is benign. An IV was placed and she was medicated with IV fluids, Zofran a Percocet for her distal radius pain and septic protocol was ordered. Her white count is elevated at 7.2. She has a normal hemoglobin. Electrolytes are normal. Lactic acid is normal. Procalcitonin is normal. Urinalysis is negative for infection. Strep test is negative. Respiratory panel is negative. Chest x-ray shows bilateral lower lobe infiltrates. I reviewed the chest x-ray myself and she does have a retrocardiac infiltrate. While in the emergency department she was noted to have a low pulse ox that dipped down into the upper 80s and was placed on supplemental oxygen. She was medicated with a DuoNeb treatment, Solu-Medrol, IV Rocephin and IV Zithromax for community-acquired pneumonia. She did have pneumonia in March as well. X-ray of the right wrist was negative for acute findings. I discussed with her whether or not she that she may have gout in this area. She has never had gout in the past. There is a possibility but clinically does not appear to to be gout like with no erythema but it is exquisitely tender. Her right wrist was wrapped in an shanta wrap for comfort and compression. She will be admitted to the hospitalist service. Medical Records Medical records narrative: [place] [address] XRay Report Signed Patient: CELSO POTTS MR#: [id number] : 1980 Acct:[id number] Age/Sex: 43 / F ADM Date: 07/31/23 Loc: ER Attending Dr: Ordering Physician: Nova Foster Date of Service: 07/31/23 Procedure(s): XR wrist RT min 3V Accession Number(s): [id number] cc: Nova Foster; Physician,Non-Staff M.D.~ The [place] [id number] Patient Name: CELSO POTTS MRN: [id number] date: 1980 Sex: F Assigned Patient Location: ER Current Patient Location: ER Accession/Order Number: [id number] Exam Date: 07/31/2023 22:20 Report Date: 07/31/2023 22:37 At the request of: NOVA FOSTER Procedure: XR wrist RT min 3V EXAM: XR wrist RT min 3V HISTORY: wrist pain, distal radius swelling COMPARISON: None. TECHNIQUE: 3 views of the right wrist are performed. FINDINGS: There is no acute fracture. The bony structures are intact. Joint spaces are maintained. Unremarkable soft tissues. XR/XR wrist RT min 3V IMPRESSION: No acute bony abnormality. Electronically authenticated by: JHOAN RUBY Date: 07/31/2023 22:37 The [place] [id number] XRay Report Signed Patient: CELSO POTTS MR#: [id number] : 1980 Acct:[id number] Age/Sex: 43 / F ADM Date: 07/31/23 Loc: ER Attending Dr: Ordering Physician: Nova Foster Date of Service: 07/31/23 Procedure(s): XR chest 2V Accession Number(s): [id number] cc: Nova Marker; Physician,Non-Staff M.DNancy~ The [place] [id number] Patient Name: CELSO POTTS MRN: [id number] date: 1980 Sex: F Assigned Patient Location: ER Current Patient Location: ER Accession/Order Number: [id number] Exam Date: 07/31/2023 22:20 Report Date: 07/31/2023 22:43 At the request of: NOVA MARKER Procedure: XR chest 2V EXAM: XR chest 2V HISTORY: fever, cough COMPARISON: None FINDINGS/IMPRESSION: 1. Patchy consolidation at the bilateral lung bases. 2. No pneumothorax. No pleural effusion. 3. Heart size and mediastinal contours are normal 4. No acute osseous abnormality 5. Upper abdominal bowel gas pattern is nonspecific and nonobstructive. Lab Data Attestation: I reviewed the patient's lab results. Labs: Lab Results 07/31/23 07/31/23 07/31/23 Range/Units 21:53 21:55 22:10 WBC 17.2 H (4.0-11.0) 10^3/uL RBC 4.40 (4.20-5.40) 10^6/uL Hgb 13.9 (12.0-16.0) g/dL Hct 41.7 (36.0-48.0) % MCV 94.8 (81.0-99.0) fL MCH 31.6 (26.7-34.0) pg MCHC 33.3 (29.9-35.2) g/dL RDW 12.6 (11.0-15.0) % Plt Count 280 (150-450) 10^3/uL MPV 9.1 L (9.5-13.5) fL Neut % (Auto) 83.3 H (43.0-75.0) % Lymph % (Auto) 8.5 L (20.5-60.0) % [place] % (Auto) 7.4 (1.7-12.0) % Eos % (Auto) 0.3 L (0.9-7.0) % Baso % (Auto) 0.2 (0.2-2.0) % Neut # (Auto) 14.3 H (1.4-6.5) 10^3/uL Lymph # (Auto) 1.5 (1.2-3.8) 10^3/uL [place] # (Auto) 1.3 H (0.3-0.8) 10^3/uL Eos # (Auto) 0.1 (0.0-0.7) 10^3/uL Baso # (Auto) 0.0 (0.0-0.1) 10^3/uL Abs Immat Gran (auto) 0.06 H (0.00-0.03) 10^3/uL Imm/Tot Granulo (auto) 0.3 (0.0-0.5) % Sodium 136 (136-145) mmol/L Potassium 3.4 L (3.5-5.1) mmol/L Chloride 102 (98-107) mmol/L Carbon Dioxide 26.2 (21.0-32.0) mmol/L Anion Gap 11.2 BUN 9.0 (7.0-18.0) mg/dL Creatinine 0.77 (0.55-1.02) mg/dL Est GFR ( Amer) >60 (>=60) Est GFR (Non-Af Amer) >60 (>=60) BUN/Creatinine Ratio 11.7 Glucose 108 H (74-106) mg/dL Lactate 0.8 (0.4-2.0) mmol/L Calcium 9.3 (8.5-10.1) mg/dL Total Bilirubin 1.1 H (0.2-1.0) mg/dL AST 36 (15-37) U/L ALT 56 (14-59) U/L Alkaline Phosphatase 71 (46-116) U/L Total Protein 7.3 (6.4-8.2) g/dL Albumin 3.7 (3.4-5.0) g/dL Globulin 3.6 g/dL Albumin/Globulin Ratio 1.0 Procalcitonin 0.14 (0.00-0.50) ng/mL Urine Color Lt. yellow (YELLOW) Urine Clarity Clear (CLEAR) Urine pH 6.5 (5.0-9.0) Ur Specific [place] <=1.005 A (1.005-1.025) Urine Protein Negative (NEG/TRACE) mg/dL Urine Glucose (UA) Negative (NEGATIVE) mg/dL Urine Ketones Negative (NEGATIVE) mg/dL Urine Occult Blood Negative (NEGATIVE) Urine Nitrite Negative (NEGATIVE) Urine Bilirubin Negative (NEGATIVE) Urine Urobilinogen 0.2 (0.2-1.0) EU/dL Ur Leukocyte Esterase Trace A (NEGATIVE) Urine RBC 0-2 (0-2) #/HPF Urine WBC 2-5 A (NONE SEEN) #/HPF Ur Squamous Epith Cells Few A (NONE/RARE) #/LPF Urine Crystals None seen (None Seen) #/HPF Urine Bacteria None seen (NONE SEEN) #/HPF Urine Casts None seen (NONE SEEN) #/LPF Urine Mucus None seen (NONE SEEN) Ur Culture Indicated? No Adenovirus (PCR) Not detected (NOT DETECTE) B. pertussis DNA (PCR) Not detected (NOT DETECTE) B.parapertussis DNA PCR Not detected (NOT DETECTE) C. pneumoniae DNA (PCR) Not detected (NOT DETECTE) Coronavirus Type OC43 Not detected (NOT DETECTE) Coronavirus Type HKU1 Not detected (NOT DETECTE) Coronavirus Type 229E Not detected (NOT DETECTE) Coronavirus Type NL63 Not detected (NOT DETECTE) Human Metapneumovir PCR Not detected (NOT DETECTE) Influenza Type A (PCR) Not detected (NOT DETECTE) Influenza Type B (PCR) Not detected (NOT DETECTE) M. pneumoniae (PCR) Not detected (NOT DETECTE) Parainfluenza PCR Not detected (NOT DETECTE) Parainfluenza 2 (PCR) Not detected (NOT DETECTE) Parainfluenza 3 (PCR) Not detected (NOT DETECTE) Parainfluenza 4 (PCR) Not detected (NOT DETECTE) RSV (RT-PCR) Not detected (NOT DETECTE) Entero/Rhino (PCR) Not detected (NOT DETECTE) SARS-CoV-2 (PCR) Not detected (NOT DETECTE) Streptococcus Screen 07/31/23 Range/Units 22:15 WBC (4.0-11.0) 10^3/uL RBC (4.20-5.40) 10^6/uL Hgb (12.0-16.0) g/dL Hct (36.0-48.0) % MCV (81.0-99.0) fL MCH (26.7-34.0) pg MCHC (29.9-35.2) g/dL RDW (11.0-15.0) % Plt Count (150-450) 10^3/uL MPV (9.5-13.5) fL Neut % (Auto) (43.0-75.0) % Lymph % (Auto) (20.5-60.0) % [place] % (Auto) (1.7-12.0) % Eos % (Auto) (0.9-7.0) % Baso % (Auto) (0.2-2.0) % Neut # (Auto) (1.4-6.5) 10^3/uL Lymph # (Auto) (1.2-3.8) 10^3/uL [place] # (Auto) (0.3-0.8) 10^3/uL Eos # (Auto) (0.0-0.7) 10^3/uL Baso # (Auto) (0.0-0.1) 10^3/uL Abs Immat Gran (auto) (0.00-0.03) 10^3/uL Imm/Tot Granulo (auto) (0.0-0.5) % Sodium (136-145) mmol/L Potassium (3.5-5.1) mmol/L Chloride (98-107) mmol/L Carbon Dioxide (21.0-32.0) mmol/L Anion Gap BUN (7.0-18.0) mg/dL Creatinine (0.55-1.02) mg/dL Est GFR ( Amer) (>=60) Est GFR (Non-Af Amer) (>=60) BUN/Creatinine Ratio Glucose (74-106) mg/dL Lactate (0.4-2.0) mmol/L Calcium (8.5-10.1) mg/dL Total Bilirubin (0.2-1.0) mg/dL AST (15-37) U/L ALT (14-59) U/L Alkaline Phosphatase (46-116) U/L Total Protein (6.4-8.2) g/dL Albumin (3.4-5.0) g/dL Globulin g/dL Albumin/Globulin Ratio Procalcitonin (0.00-0.50) ng/mL Urine Color (YELLOW) Urine Clarity (CLEAR) Urine pH (5.0-9.0) Ur Specific [place] (1.005-1.025) Urine Protein (NEG/TRACE) mg/dL Urine Glucose (UA) (NEGATIVE) mg/dL Urine Ketones (NEGATIVE) mg/dL Urine Occult Blood (NEGATIVE) Urine Nitrite (NEGATIVE) Urine Bilirubin (NEGATIVE) Urine Urobilinogen (0.2-1.0) EU/dL Ur Leukocyte Esterase (NEGATIVE) Urine RBC (0-2) #/HPF Urine WBC (NONE SEEN) #/HPF Ur Squamous Epith Cells (NONE/RARE) #/LPF Urine Crystals (None Seen) #/HPF Urine Bacteria (NONE SEEN) #/HPF Urine Casts (NONE SEEN) #/LPF Urine Mucus (NONE SEEN) Ur Culture Indicated? Adenovirus (PCR) (NOT DETECTE) B. pertussis DNA (PCR) (NOT DETECTE) B.parapertussis DNA PCR (NOT DETECTE) C. pneumoniae DNA (PCR) (NOT DETECTE) Coronavirus Type OC43 (NOT DETECTE) Coronavirus Type HKU1 (NOT DETECTE) Coronavirus Type 229E (NOT DETECTE) Coronavirus Type NL63 (NOT DETECTE) Human Metapneumovir PCR (NOT DETECTE) Influenza Type A (PCR) (NOT DETECTE) Influenza Type B (PCR) (NOT DETECTE) M. pneumoniae (PCR) (NOT DETECTE) Parainfluenza PCR (NOT DETECTE) Parainfluenza 2 (PCR) (NOT DETECTE) Parainfluenza 3 (PCR) (NOT DETECTE) Parainfluenza 4 (PCR) (NOT DETECTE) RSV (RT-PCR) (NOT DETECTE) Entero/Rhino (PCR) (NOT DETECTE) SARS-CoV-2 (PCR) (NOT DETECTE) Streptococcus Screen Negative Discharge Plan Discharge Chief Complaint: Upper Respiratory Infection Clinical Impression: Pneumonia, Arthralgia of right wrist Patient Disposition: Admitted as Observation Time of Disposition Decision: 23:58 Condition: Fair Prescriptions / Home Meds: No Action atenolol 50 mg tablet 50 mg PO BID dexlansoprazole 30 mg capsule,biphase delayed releas 30 mg PO QAM gabapentin 300 mg capsule 300 mg PO TID lorazepam 0.5 mg tablet 0.5 mg PO QID PRN (Reason: anxiety) mirtazapine 30 mg tablet 30 mg PO QPM oxycodone 10 mg tablet 10 mg PO Q6H PRN (Reason: pain) Xarelto 10 mg tablet 10 mg PO DAILY trazodone 100 mg tablet 100 mg PO QPM PRN (Reason: sleep) cyclobenzaprine 10 mg tablet 10 mg PO TID PRN (Reason: muscle spasm) levothyroxine 75 mcg tablet 75 mcg PO .QD trazodone 50 mg tablet 50 mg PO .QHS PRN (Reason: sleep) fluticasone furoate-vilanterol [Breo Ellipta] 100-25 mcg/dose blister with device 1 inh INHALATION QAM Trelegy Ellipta 200-62.5-25 mcg blister with device 1 inh INHALATION Q24H pantoprazole 40 mg tablet,delayed release (DR/EC) 40 mg PO DAILY Print Language: British Referrals: Physician,Non-Staff, MD [Primary Care Provider] - 1 week
--- NOTE | 2023-07-31 21:43 | ECG_ITS ---
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
--- NOTE | 2023-07-31 21:43 | XR_ITS ---
The [address] [address] Patient Name: CELSO POTTS MRN: [id number] date: 1980 Sex: F Assigned Patient Location: ER Current Patient Location: ER Accession/Order Number: [id number] Exam Date: 07/31/2023 22:20 Report Date: 07/31/2023 22:37 At the request of: TESSA MARKER Procedure: XR wrist RT min 3V EXAM: XR wrist RT min 3V HISTORY: wrist pain, distal radius swelling COMPARISON: None. TECHNIQUE: 3 views of the right wrist are performed. FINDINGS: There is no acute fracture. The bony structures are intact. Joint spaces are maintained. Unremarkable soft tissues. XR/XR wrist RT min 3V IMPRESSION: No acute bony abnormality. Electronically authenticated by: JHOAN RUBY Date: 07/31/2023 22:37
--- NOTE | 2023-07-31 21:43 | XR_ITS ---
[address] [address] Patient Name: CELSO POTTS MRN: [id number] date: 1980 Sex: F Assigned Patient Location: ER Current Patient Location: ER Accession/Order Number: [id number] Exam Date: 07/31/2023 22:20 Report Date: 07/31/2023 22:43 At the request of: TESSA MARKER Procedure: XR chest 2V EXAM: XR chest 2V HISTORY: fever, cough COMPARISON: None FINDINGS/IMPRESSION: 1. Patchy consolidation at the bilateral lung bases. 2. No pneumothorax. No pleural effusion. 3. Heart size and mediastinal contours are normal 4. No acute osseous abnormality 5. Upper abdominal bowel gas pattern is nonspecific and nonobstructive. Electronically authenticated by: MORELIA HEAD Date: 07/31/2023 22:43
[2023-07-31 22:04] LABS: Adenovirus NOT DETECTED (NOT DETECTE); Bordetella parapertussis NOT DETECTED (NOT DETECTE); Coronavirus 229E NOT DETECTED (NOT DETECTE); Coronavirus HKU1 NOT DETECTED (NOT DETECTE); Coronavirus NL63 NOT DETECTED (NOT DETECTE); Coronavirus OC43 NOT DETECTED (NOT DETECTE); Human Metapneumovirus NOT DETECTED (NOT DETECTE); Human Rhinovirus/Enterovirus NOT DETECTED (NOT DETECTE); Influenza A NOT DETECTED (NOT DETECTE); Influenza B NOT DETECTED (NOT DETECTE); Mycoplasma pneumoniae NOT DETECTED (NOT DETECTE); Parainfluenza Virus 1 NOT DETECTED (NOT DETECTE); Parainfluenza Virus 2 NOT DETECTED (NOT DETECTE); Parainfluenza Virus 3 NOT DETECTED (NOT DETECTE); Parainfluenza Virus 4 NOT DETECTED (NOT DETECTE); Respiratory Syncytial Virus NOT DETECTED (NOT DETECTE); SARS-CoV-2 NOT DETECTED (NOT DETECTE)
[2023-07-31 22:06] LABS: Basophils Percent Auto 0.2 % (0.2-2.0); Eosinophils Absolute Auto 0.1 10^3/uL (0.0-0.7); Eosinophils Percent Auto 0.3 % (0.9-7.0); Hematocrit 41.7 % (36.0-48.0); Hemoglobin 13.9 g/dL (12.0-16.0); Immature Granulocytes Abs Auto 0.06 10^3/uL (0.00-0.03); Immature Granulocytes Pct Auto 0.3 % (0.0-0.5); Lymphocytes Absolute Auto 1.5 10^3/uL (1.2-3.8); Lymphocytes Percent Auto 8.5 % (20.5-60.0); Mean Corpuscular HGB Conc 33.3 g/dL (29.9-35.2); Mean Corpuscular Hemoglobin 31.6 pg (26.7-34.0); Mean Corpuscular Volume 94.8 fL (81.0-99.0); Mean Platelet Volume 9.1 fL (9.5-13.5); Monocytes Absolute Auto 1.3 10^3/uL (0.3-0.8); Monocytes Percent Auto 7.4 % (1.7-12.0); Neutrophils Absolute Auto 14.3 10^3/uL (1.4-6.5); Neutrophils Percent Auto 83.3 % (43.0-75.0); Platelet Count 280 10^3/uL (150-450); Red Cell Distribution Width 12.6 % (11.0-15.0); White Blood Count 17.2 10^3/uL (4.0-11.0)
[2023-07-31] MEDS: ONDANSETRON PF 4 MG/2 ML VIAL IV (22:16)
[2023-07-31] MEDS: OXYCODONE HCL/ACETAMINOPHEN 5MG/325MG 1 TAB PO (22:16)
[2023-07-31] MEDS: 0.9 % SODIUM CHLORIDE 1,000 ML 999 ML IV (22:16)
[2023-07-31 22:23] LABS: Alanine Aminotransferase 56 U/L (14-59); Albumin Level 3.7 g/dL (3.4-5.0); Alkaline Phosphatase 71 U/L (46-116); Anion Gap 11.2; Aspartate Amino Transferase 36 U/L (15-37); BUN Creatinine Ratio 11.7; Bilirubin Total 1.1 mg/dL (0.2-1.0); Calcium 9.3 mg/dL (8.5-10.1); Carbon Dioxide 26.2 mmol/L (21.0-32.0); Chloride 102 mmol/L (98-107); Estimated GFR (African America >60 (>=60); Estimated GFR (Non-African Ame >60 (>=60); Globulin 3.6 g/dL; Glucose 108 mg/dL (74-106); Potassium 3.4 mmol/L (3.5-5.1); Sodium 136 mmol/L (136-145); Total Protein 7.3 g/dL (6.4-8.2)
[2023-07-31 22:24] LABS: Bilirubin Urine NEGATIVE (NEGATIVE); Blood Urine NEGATIVE (NEGATIVE); Clarity Urine CLEAR (CLEAR); Color Urine LT. YELLOW (YELLOW); Glucose Urine UA NEGATIVE (NEGATIVE); Ketones Urine NEGATIVE (NEGATIVE); Leukocyte Esterase Urine TRACE (NEGATIVE); Nitrite Urine NEGATIVE (NEGATIVE); Protein Urine NEGATIVE (NEG/TRACE); Specific Gravity Urine <=1.005 (1.005-1.025); Urobilinogen Urine 0.2 EU/dL (0.2-1.0); pH Urine 6.5 (5.0-9.0)
[2023-07-31 22:25] LABS: Urine Microscopic Indicated YES
[2023-07-31 22:28] LABS: Lactate/Lactic Acid 0.8 mmol/L (0.4-2.0)
[2023-07-31 22:30] LABS: Bacteria Urine NONE SEEN #/HPF (NONE SEEN); Cast Seen? NONE SEEN #/LPF (NONE SEEN); Crystals Seen? None Seen #/HPF (None Seen); Mucus Urine NONE SEEN (NONE SEEN); RBC Urine 0-2 #/HPF (0-2); Squamous Epithelial Cell Urine FEW #/LPF (NONE/RARE); Urine Culture Indicated NO
[2023-07-31 22:31] LABS: Internal Control Within Normal Limits; Strep A Antigen Screen Negative
[2023-07-31 22:35] LABS: PROCALCITONIN 0.14 ng/mL (0.00-0.50)
[2023-07-31] MEDS: IPRATROPIUM/ALBUTEROL SULFATE 3 ML AMPUL.NEB IH (23:08)
[2023-07-31] MEDS: METHYLPREDNISOLONE SOD SUCC PF 125 MG/2 ML VIAL IVP (23:13)
[2023-07-31] MEDS: CEFTRIAXONE 1,000 MG in 0.9 % SODIUM CHLORIDE 50 ML 100 MG IV (23:13)
[2023-07-31] MEDS: AZITHROMYCIN 500 MG in 0.9 % SODIUM CHLORIDE 250 ML 250 MG IV (23:13)
[2023-08-01] VITALS (16 sets, daily range): BP systolic 88–106; BP diastolic 55–75; PULSE 90–102; TEMP 36.5–36.6; O2SAT 86–98; BMI 29.7
--- OUTSIDE RECORDS SUMMARY | 2023-08-01 01:11 | XMS_ITS | CCD ---
Author Organization [facility] Care Team Providers Care Test Technician Name Role Phone Mary RODRIGUEZ, Abdo Unavailable Genna RODRIGUEZ, Jose A Primary Care Provider Ellen WALL, Marilyn Unavailable Mary RODRIGUEZ, Abdo Unavailable Juan R RN, Kristina Unavailable Unavailable Emely AWS SOLUTION ARCHITECT.Juan Francisco VASQUEZ Unavailable Kylie Johnson Unavailable Mary RODRIGUEZ, Abdo Unavailable Genna RODRIGUEZ, Jose A Primary Care Provider Marilyn Hughes RN Unavailable Mary RODRIGUEZ, Abdo Unavailable Juan R RN, Kristina Unavailable Unavailable Emely AWS SOLUTION ARCHITECT.Juan Francisco VASQUEZ Unavailable Kylie Mosher RN Unavailable Unavail able Genna RODRIGUEZ, Jose A Primary Care Provider Mary RODRIGUEZ, Abdo Unavailable Genna RODRIGUEZ, Jose A Primary Care Provider Marilyn Hughes RN Unavailable Mary RODRIGUEZ, Abdo Unavailable Juan R WALL, Kristina Unavailable Unavailable Emely AWS SOLUTION ARCHITECT.Juan Francisco VASQUEZ Unavailable Kylie Mosher RN Unavailable Unavail able FAN, DR PEGUERO Primary Care Unavailable IGLEISA BLAKELY Admitting Unavailable IGLESIA BLAKELY Attending Unavailable IGLESIA BLAKELY Consulting Unavailable CONG ALMANZAR Consulting Unavailable [facility] [place] PEGUERO Primary Care Unavailable PAY ., DR PARHAM Admitting Unavailable PAY ., DR PARHAM Attending Unavailable BITA ., ZAIRA Consulting Unavailable Emely AWS SOLUTION ARCHITECT.LEAD SYSTEMS DEVELOPERJuan Francisco Unavailable Juan R WALL, Kristina Unavailable Unavailable Emely AWS SOLUTION ARCHITECT.LEAD SYSTEMS DEVELOPER, Juan Francisco Unavailable Nomi WALL, Kylie Patel Unavailable Unavail able JUAN FRANCISCO HUTCHINSON Attending Unavailable VAIL, JOSE A Primary Care Unavailable JUAN FRANCISCO HUTCHINSON Attending Unavailable VAIL, JOSE A Primary Care Unavailable VAIL, JOSE A Primary Care Unavailable JUAN FRANCISCO HUTCHINSON Referring Unavailable Mary RODRIGUEZ, Cyn Unavailable Glenys Vail MDecca A Primary Care Provider Mary RODRIGUEZ, Abdo Unavailable Keke Bright Unavailable MD lGenys Vailecca A Primary Care Provider OSCAR Bright Attending Provider Genna RODRIGUEZ Jose A Primary Care Provider [phone] Darien RODRIGUEZ, Alexsander Pacheco Unavailable [phone] [place] AWS SOLUTION ARCHITECT.Linette VASQUEZ Unavailable [phone] Krishna AWS SOLUTION ARCHITECT.LEAD SYSTEMS DEVELOPER, Linette Unavailable Alex GODWIN, Fabiana Unavailable Unavailable Keke Bright Attending Unavailable Kaila, Keke Admitting Unavailable Vail, Jose A Primary Care Unavailable Genna RODRIGUEZ Jose A Unavailable Genna RODRIGUEZ Jose A Primary Care Provider SHEILA LIN Attending Unavailable LINETTE SKINNER Attending Unavailable LINETTE SKINNER Attending Unavailable VAIL, JOSE A Referring Unavailable VAIL, JOSE A Attending Unavailable GENNA, JOSE A Attending Unavailable LINETTE SKINNER Attending Unavailable VAIL, JOSE A Referring Unavailable Genna RODRIGUEZ Jose A Primary Care Provider [phone] Krishna AWS SOLUTION ARCHITECT.LEAD SYSTEMS DEVELOPERLinette Unavailable Krishna AWS SOLUTION ARCHITECT.LEAD SYSTEMS DEVELOPER, Linette Unavailable RADHA RUANO Referring Unavailable VAIL, JOSE A Primary Care Unavailable LOY MERINO (JAYLA) Referring Unavailable VAIL, JOSE A Primary Care Unavailable LOY MERINO (JAYLA) Referring Unavailable VAIL, JOSE A Primary Care Unavailable VAIL, JOSE A Primary Care Unavailable VAIL, JOSE A Primary Care Unavailable ALEXSANDER LEDEZMA Attending Unavailable VAIL, JOSE A Referring Unavailable VAIL, JOSE A Primary Care Unavailable RADHA RUANO Attending Unavailable VAIL, JOSE A Primary Care Unavailable VAIL, JOSE A Referring Unavailable LOY MERINO Referring Unavailable VAIL, JOSE A Primary Care [...] VAIL, JOSE A Primary Care Unavailable RAMIRES, CYN Referring Unavailable ALEXSANDER LEDEZMA Attending Unavailable VAIL, JOSE A Primary Care Unavailable ROCIO, ELLA Referring Unavailable VAIL, JOSE A Primary Care Unavailable ALEXSANDER LEDEZMA Referring Unavailable VAIL, JOSE A Primary Care Unavailable RAMIRESCYN Attending Unavailable VAIL, JOSE A Referring Unavailable VAIL, JOSE A Primary Care Unavailable VAIL, JOSE A Primary Care Unavailable JUAN FRANCISCO HUTCHINSON Attending Unavailable JUAN FRANCISCO HUTCHINSON Referring Unavailable JUAN FRANCISCO HUTCHINSON Attending Unavailable VAIL, JOSE A Primary Care Unavailable JUAN FRANCISCO HUTCHINSON Referring Unavailable RAMIRES, CNY Referring Unavailable VAIL, JOSE A Primary Care Unavailable KYLIE NUNES Referring Unavailable LOY MERINO Attending Unavailable VAIL, JOSE A Primary Care Unavailable VAIL, JOSE A Primary Care Unavailable ZOILA AGUIRRE Referring Unavailable VAIL, JOSE A Primary Care Unavailable VAIL, JOSE A Referring Unavailable MEHUL, SUMMER Attending Unavailable CYN RAMIRES Referring Unavailable VAIL, JOSE A Primary Care Unavailable ALEXSANDER LEDEZMA Attending Unavailable VAIL, JOSE A Referring Unavailable VAIL, JOSE A Primary Care Unavailable JUAN FRANCISCO HUTCHINSON Attending Unavailable VAIL, JOSE A Primary Care Unavailable VAIL, JOSE A Primary Care Unavailable VAIL, JOSE A Referring Unavailable MEHUL, SUMMER Attending Unavailable ELLA CHAN Attending Unavailable VAIL, JOSE A Primary Care Unavailable VAIL, JOSE A Referring Unavailable VAIL, JOSE A Primary Care Unavailable NOVA BRIDGES Referring Unavailable YULIANA, NOVA Attending Unavailable RADHA RUANO Attending Unavailable VAIL, JOSE A Referring Unavailable VAIL, JOSE A Primary Care Unavailable Allergies Allergy Classification Reported Allergen(s) Allergy Type Date of Onset Reaction(s) Facility Chlorhexidine (2 sources) Chlorhexidine; 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: [CHLORHEXIDINE] Drug Allergy 4 [facility] Repository Sulfonamides (antibiotic) (2 sources) Sulfonamides (Antibiotic); 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: [SULFA (SULFONAMIDE ANTIBIOTICS)] Drug Allergy 2 [facility] Repository (20 sources) Chlorhexidine; 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: [CHLORHEXIDINE] Drug Allergy 4 Itching, Unknown [facility] Work Phone: (20 sources) Sulfonamides (Antibiotic); 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: [SULFA (SULFONAMIDE ANTIBIOTICS)] Drug Allergy 2 Rash, Unknown [facility] Work Phone: (2 sources) Sulfacetamide / Sulfur Drug Allergy rash [employer] Other (1 source) Sulfonamides (Antibiotic) Drug allergy (disorder) [facility] Repository (1 source) Sulfacetamide Drug Allergy 3 [facility] Repository (1 source) Sulfur Drug Allergy 3 [facility] Repository Medications Current Medications Medication Drug Class(es) Dates Sig (Normalized) Sig (Original) amoxicillin 875 mg / clavulanate 125 mg oral tablet (1 source) Penicillin-class Antibacterial Start: 06-04-2022 End: 06-11-2022 take 1 tablet by mouth twice daily amoxicillin-clavu lanic acid (AUGMENTIN) 875-125 mg per tablet Indications: Abnormal CT of the chest Take 1 tablet by mouth twice daily for 7 days. 1 tablet 0 06/04/2022 06/11/2022 Active Comment on above: Take 1 tablet by jaleesa th twice daily for 7 days. atenolol 50 mg oral tablet (20 sources) beta-Adrenergic Tyrone Start: 08-29-2017 take 1 tablet by mouth twice daily atenolol (TENORMIN) 50 mg tablet Indications: Tachycardia take 1 tablet by mouth twice a day 60 tablet 1 08/29/2017 Active Atenolol Active Comment on above: take 1 tablet by jaleesa th twice a day bifidobacterium animalis [id number] unt / lactobacillus acidophilus [id number] unt oral capsule (2 sources) Start: 10-04-19 Probiotic Product (Probiotic Daily) capsule 1 (one) time each day at the same time. 0 10/03/2021 Active biotin 2.5 mg oral capsule (20 sources) Start: 05-08-19 Biotin 2,500 mcg cap CHOLECALCIFEROL, VITAMIN D3, (VITAMIN D3 ORAL) (20 sources) take 1000 [IU] by mouth once daily CHOLECALCIFEROL, VITAMIN D3, (VITAMIN D3 ORAL) Take 1,000 Units by mouth once daily. 0 Active Comment on above: Take 1,000 Units by mouth once daily. cyclobenzaprine hydrochloride 10 mg oral tablet (20 sources) Muscle Relaxant Start: 07-11-19 End: 08-10-19 take 1 tablet by mouth twice daily as needed for muscle spasms cyclobenzaprine (FLEXERIL) 10 mg tablet Indications: Muscle cramps , Nodular sclerosing Hodgkin's lymphoma, unspecified body region (HCC) Take 1 tablet by mouth two times a day as needed for muscle spasm. 60 tablet 0 2023 08/10/2023 Active Start: 12-03-2022 End: 2023 take 1 tablet by mouth three times daily as needed for muscle spasms cyclobenzaprine (FLEXERIL) 10 mg tablet Indications: Muscle cramps , Nodular sclerosing Hodgkin's lymphoma, unspecified body region (HCC) Take 1 tablet by mouth three times a day as needed for muscle spasm. 90 tablet 1 04/08/2023 2023 Discontinued Start: 08-10-2022 End: 11-08-2022 take 1 tablet [...] a day as needed for muscle spasm. diclofenac sodium 0.01 mg/mg topical gel (4 sources) Nonsteroidal Anti-inflammatory Drug Start: 07-11-19 End: 10-09-19 apply 4 g topically four times daily diclofenac (VOLTAREN) 1 % topical gel Indications: Arthritis pain Apply 4 g to affected area four times daily. 480 g 2 2023 10/09/2023 Active doxycycline hyclate 100 mg oral capsule (20 sources) Tetracycline-class Drug Start: 05-31-19 End: 06-05-19 take 1 capsule by mouth twice daily doxycycline hyclate (VIBRAMYCIN) 100 mg capsule Indications: Restrictive lung disease Take 1 capsule by mouth two times a day for 5 days. 10 capsule 0 05/31/2023 06/05/2023 Active Start: 07-26-2022 End: 09-13-2022 take 1 capsule [...] once daily. Take 1 capsule by mo uth twice daily for 7 days. Take 1 capsule by mo uth twice daily. Take 1 capsule by mo uth two times a day for 5 days. fluconazole 100 mg oral tablet (3 sources) Azole Antifungal Start: 06-13-19 End: 06-20-19 take 1 tablet by mouth once daily fluconazole (DIFLUCAN) 100 mg tablet Indications: Oral thrush Take 1 tablet by mouth once daily for 7 days. 7 tablet 0 06/13/2023 06/20/2023 Active fluocinonide 0.5 mg/ml topical cream (20 sources) [...] RIGHT HAND and legs TWICE A DAY 30 actuat fluticasone furoate 0.2 mg/actuat / vilanterol 0.025 mg/actuat dry powder inhaler (20 sources) Corticosteroid, beta2-Adrenergic Agonist Start: 4 take 1 dose by inhalation once daily fluticasone-vilante rol (BREO ELLIPTA) 200-25 mcg/dose inhaler Indications: Influenza with pneumonia Inhale 1 Inhalation as instructed once daily. 1 Each 3 04/19/2023 Active Start: 01-21-2023 take 1 puff(s) by in halation in the morning Fluticasone Furoate-Vilanterol (Breo Ellipta) 100-25 MCG/ACT aerosol powder Indications: Mild intermittent asthma without complication (CMS/HCC) , Restrictive lung disease Inhale 1 puff in the morning. 60 each 3 01/21/2023 Active Start: 09-13-2022 End: 04-19-2023 take 1 dose by inhalation once daily fluticasone-vilanterol (BREO ELLIPTA) 100-25 mcg/dose inhaler Inhale 1 Inhalation as instructed once daily. 1 Each 3 09/13/2022 01/01/2023 Discontinued Comment on above: Inhale 1 Inhalation as instructed once daily. fluticasone-umeclid in-vilanter (TRELEGY ELLIPTA) 200-62.5-25 mcg inhalation powder (7 sources) Start: 4 take 1 puff(s) by inhalation once daily fluticasone-umeclid in-vilanter (TRELEGY ELLIPTA) 200-62.5-25 mcg inhalation powder Indications: Dyspnea on exertion , Bronchitis Inhale 1 Puff as instructed once daily. 60 Each 3 06/17/2023 Active gabapentin 300 mg oral capsule (20 sources) Anti-epileptic Agent Start: 3 take 1 capsule by mouth in the [...] topical cream (2 sources) Azole Antifungal Start: 2 ketoconazole (NIZOral) 2 % cream Apply 1 application topically 1 (one) time each day at the same time. 0 02/13/2022 Active Lactobac no.41/Bifidobact no.7 (PROBIOTIC-10 ORAL) (20 sources) Lactobac no.41/Bifidobact no.7 (PROBIOTIC-10 ORAL) Take by mouth. 0 Active Comment on above: Take by mouth. levothyroxine sodium 0.075 mg oral tablet (20 sources) l-Thyroxine Start: 0 End: 4 take 1 tablet by mouth once daily [...] times a day if needed for anxiety mirtazapine 30 mg oral tablet (20 sources) Start: 05-22-2022 End: 08-27-2023 take 1 tablet by mouth once daily at bedtime mirtazapine (REMERON) 30 mg tablet Take 30 mg by mouth daily at bedtime. 0 05/22/2022 Active Remeron Active Comment on above: Take 30 mg by mouth daily at bedtime. 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 120 tablet 0 04/08/2023 Active Start: 12-11-2022 End: 02-06-2023 take 1 [...] for pain for up to 30 days. pantoprazole 40 mg delayed release oral tablet (18 sources) Proton Pump Inhibitor Start: End: take 1 tablet by mouth once daily pantoprazole DR (PROTONIX) 40 mg tablet Take 1 tablet by mouth once daily. 90 tablet 1 05/22/2023 08/20/2023 Active Comment on above: Take 1 tablet by jaleesa th once daily. perflutren lipid microspheres 1.3 mL in NaCl [...] a day for 2 day(s) Jan, Active predniSONE 20 mg oral tablet (20 sources) Start: End: take 2 tablets by mouth once daily predniSONE (DELTASONE) 20 mg tablet Indications: Restrictive lung disease Take 2 tablets by mouth once daily for 5 days. 10 tablet 0 05/31/2023 06/05/2023 Active Start: 04-09-2023 End: 04-30-2023 predniSONE (DELTASONE) 10 mg tablet take 4 tablets by mouth once daily for 3 days take 3 tablets once... (REFER TO PRESCRIPTION NOTES). 0 04/09/2023 Active Start: 06-04-2022 End: 07-19-2022 take 2 tablets by mouth once daily predniSONE (DELTASONE) 20 mg tablet Indications: Abnormal CT of the chest Take 2 tablets by mouth once daily. 10 tablet 0 06/04/2022 07/19/2022 Discontinued Comment on above: Take 2 tablets by mo uth once daily. take 4 tablets by mo uth once daily for 3 days take 3 tablets once... (REFER TO PRESCRIPTION NOTES). Take 4 tablets by mo uth once daily for 3 days, THEN 3 tablets once daily for 3 days, THEN 2 tablets once daily for 3 days, THEN 1 tablet once daily for 3 days. Take 2 tablets by mo uth once daily for 5 days. pregabalin 100 mg oral capsule (10 sources) Start: End: take 1 capsule by mouth twice daily pregabalin (LYRICA) 100 mg capsule Indications: Palliative care by specialist , Nodular sclerosing Hodgkin's lymphoma, unspecified body region (HCC) , Cancer related pain Take 1 capsule by mouth twice daily for 90 days. 60 capsule 2 10/18/2022 01/16/2023 Active Comment on above: Take 1 capsule by mo uth twice daily for 90 days. prochlorperazine 10 mg oral tablet (20 sources) Phenothiazine Start: take 1 tablet by mouth every six [...] take 1 tablet by mouth at [place] rivaroxaban (Xarelto) 20 MG tablet Take 20 mg by mouth in the evening. Take with meals Take with food. 0 Active Xarelto Active Comment on above: Take 1 tablet by jaleesa th once daily. take 1 tablet by jaleesa th once daily 10 actuat tiotropium 0.0025 mg/actuat inhalation spray (20 sources) Anticholinergic Start: 06-13-19 take 2 puff(s) by inhalation once daily tiotropium bromide (SPIRIVA RESPIMAT) 2.5 mcg/actuation inhaler Indications: Bronchitis , Restrictive lung disease Inhale 2 Puffs as instructed once daily. 4 g 5 06/13/2023 Active Start: 10-02-2021 End: 07-19-2022 take 2 puff(s) by inhalation once daily [...] INHALE 2 PUFFS DI RECTED ONCE DAILY traZODone hydrochloride 100 mg oral tablet (20 sources) Serotonin Reuptake Inhibitor Start: 02-04-2023 traZODone (Desyrel) 100 MG tablet Indications: Insomnia, unspecified type Take 1 tablet (100 mg) by mouth as needed at bedtime for sleep 90 tablet 3 02/04/2023 Active take 2 tablets by mo [facility] once daily at bedtime traZODone (DESYREL) 50 [...] AREA TWICE A DAY FOR 5 DAYS Vitamin B Comp and C No.3 (B COMPLEX PLUS VITAMIN C) 84-58-11-5-300 mg cap (20 sources) Start: 08-11-2019 Vitamin B Comp and C No.3 (B COMPLEX PLUS VITAMIN C) 10-26-62-5-300 mg cap Take 1 tablet by mouth once daily. 30 capsule 3 08/11/2019 Active Comment on above: Take 1 tablet by jaleesa once daily. Completed/Discontinued Medications Medication Drug Class(es) Dates Sig (Normalized) Sig (Original) acetaminophen 325 mg oral tablet (20 sources) Start: 03-01-2014 End: 06-10-2023 take 325-650 mg by mouth every four hours as needed acetaminophen (TYLENOL) 325 mg tablet Take 1-2 tablets by mouth every 4 hours as needed (not to exceed 2000 mg in a 24 hour period). 0 03/01/2014 06/10/2023 Discontinued Comment on above: Take 1-2 tablets by mouth every 4 hours as needed (not to exceed 2000 mg in a 24 hour period). acyclovir 400 mg oral tablet (20 sources) Herpesvirus Nucleoside Analog DNA Polymerase Inhibitor, Herpes Simplex Virus Nucleoside Analog DNA Polymerase Inhibitor, Herpes Zoster Virus Nucleoside Analog DNA Polymerase Inhibitor Start: 06-05-2021 End: 06-10-2023 take 1 tablet by mouth twice daily acyclovir (ZOVIRAX) 400 mg tablet take 1 tablet by mouth twice a day 180 tablet 3 05/22/2022 06/10/2023 Discontinued Acyclovir Not-Ta quincy/PRN Comment on above: take 1 tablet by jaleesa twice a day [id number] 200 actuat albuterol 0.09 mg/actuat metered dose inhaler (20 sources) beta2-Adrenergic Agonist Start: End: take 2 puff(s) by inhalation every four [...] solution (20 sources) Anticholinergic, beta2-Adrenergic Agonist Start: 05-31-2023 End: 05-31-2023 ipratropium-albuterol 3 mL nebulizer solution (DUONEB) Start: 05-15-2023 End: 05-29-2023 take 3 mL by inhalation every six hours as needed for wheezing ipratropium-albuterol (DUONEB) 0.5 mg-3 mg(2.5 mg base)/3 mL nebu Indications: Dyspnea on exertion Inhale 3 mL as instructed every 6 hours as needed for wheezing/shortness of breath. 540 mL 1 05/15/2023 05/29/2023 Discontinued Start: 05-14-2023 End: 05-29-2023 ipratropium-albuterol (DUONE B) 0.5 mg-3 mg(2.5 mg base)/3 mL nebu Indications: Dyspnea on exertion inhale contents of 1 vial ( 3 MILLILITERS ) in nebulizer by mouth and INTO THE LUNGS every 6 hours if needed for wheezing or shortness of breath 1620 mL 1 05/29/2023 Active Start: 06-15-2022 take 3 mL by inhalat ion every six hours as needed for wheezing ipratropium-albuterol (DUONEB) 0.5 mg-3 mg(2.5 mg base)/3 [...] hours as needed for wheezing/shortness of breath. inhale contents of 1 vial in nebulizer by mouth every 6 hours if needed for wheezing or shortness of breath inhale contents of 1 vial ( 3 MILLILITERS ) in nebulizer by mouth and INTO THE LUNGS every 6 hours if needed for wheezing or shortness of breath amoxicillin 875 mg oral tablet (2 sources) Penicillin-class Antibacterial Start: take 1 tablet by mouth every twelve hours Amoxicillin 875 MG 1 tablet Orally every 12 hrs for 7 days Jan, Not-Taking/PRN azelastine hydrochloride 0.137 mg/actuat metered dose nasal spray (20 sources) Histamine-1 Receptor Antagonist Start: End: take 1 spray(s) nasal route twice daily azelastine 0.1% nasal spray Use 1 [place] in each nostril two times a day. 30 mL 0 03/28/2023 2023 Discontinued Comment on above: Use 1 [place] in each nostril two times a day. azithromycin 250 mg oral tablet (20 sources) Macrolide Antimicrobial Start: End: take 2 tablets by mouth once daily, then take 1 tablet by mouth once daily azithromycin (ZITHROMAX Z-RON) 250 mg tablet Indications: Influenza with pneumonia Two (2) tablets by mouth the first day and then one (1) tablet by mouth daily for 4 days. 6 tablet 0 04/19/2023 06/13/2023 Discontinued (Course of therapy completed) Start: 05-19-2021 take 2 tablets by mo uth once daily, then take 1 tablet by [...] one (1) tablet daily for 4 days. Two (2) tablets by m outh the first day and then one (1) tablet by mouth daily for 4 days. baclofen 5 mg oral tablet (20 sources) gamma-Aminobutyric Acid-ergic Agonist Start: 10-30-2021 End: 2023 take 1 tablet by mouth three times daily baclofen 5 mg tablet Indications: Muscle cramps , Nodular sclerosis classical Hodgkin lymphoma (HCC) take 1 tablet by mouth three times a day 90 tablet 1 05/07/2023 2023 Discontinued Start: 07-31-2021 take 1 tablet by jaleesa [...] by jaleesa th three times a day. chlorhexidine gluconate 40 mg/ml medicated liquid soap (20 sources) Start: End: chlorhexidine (HIBICLENS) 4 % external liquid In groin as a wash 473 mL 11 12/06/2020 07/19/2022 Discontinued Comment on above: In groin as a wash clindamycin 10 mg/ml topical lotion (20 sources) Lincosamide Antibacterial Start: End: Clindamycin Phosphate (CLEOCIN T) 1 % lotion To groin daily 60 mL 4 12/06/2020 04/23/2022 Discontinued Comment on above: To groin daily dexlansoprazole 30 mg delayed release oral capsule (20 sources) Proton Pump Inhibitor Start: End: take 1 capsule by mouth once daily Dexlansoprazole (DEXILANT) 30 mg CpDM Take 1 capsule by mouth once daily. 60 capsule 6 07/20/2019 06/10/2023 Discontinued Dexilant Active Comment on above: Take 1 capsule by mo [facility] once daily. DULoxetine 30 mg delayed release oral capsule (4 sources) Serotonin and Norepinephrine Reuptake Inhibitor Start: 04-12-19 End: 05-18-19 take 1 capsule by mouth once daily for anxiety DULoxetine (CYMBALTA) 30 mg capsule Indications: Encounter for palliative care , Anxiety Take 1 capsule by mouth once daily. 30 capsule 1 04/12/2021 05/17/2021 Discontinued Comment on above: Take 1 capsule by mo [facility] once daily. fluticasone propionate 0.05 mg/actuat metered dose nasal spray (9 sources) Corticosteroid Start: 06-13-19 End: 07-11-19 take 1 spray(s) nasal route once daily fluticasone (FLONASE ALLERGY RELIEF) 50 mcg/actuation nasal spray Indications: Acute non-recurrent pansinusitis Use 1 [place] in each nostril once daily. 11.1 mL 1 06/13/2023 2023 Discontinued Start: 02-02-2021 take 1 spray(s) nasa l route once daily as needed Fluticasone Propionate 50 MCG/ACT 1 spray in each nostril Nasally Once a day for 30 day(s) Jan, Not-Taking/PRN Start: 02-02-2021 hydrocortisone 20 mg oral tablet (20 sources) Corticosteroid Start: 01-03-2023 End: 05-31-2023 take 1 tablet by mouth twice daily hydrocortisone (CORTEF) 20 mg tablet Take 1 tablet by mouth two times a day. 60 tablet 1 01/03/2023 05/31/2023 Discontinued (Course of therapy completed) Comment on above: Take 1 tablet by [...] times daily as needed. Prescribed by PCP levoFLOXacin 750 mg oral tablet (9 sources) Quinolone Antimicrobial Start: 06-10-2023 End: 2023 take 1 tablet by mouth once daily levoFLOXacin (LEVAQUIN) 750 mg tablet Take 1 tablet by mouth once daily. 10 tablet 0 06/10/2023 2023 Discontinued (Course of therapy completed) methylPREDNISolone 4 mg oral tablet (2 sources) Corticosteroid Start: 02-02-2021 methylPREDNISolone 4 MG as directed Orally Once a day for 6 days Jan, Not-Taking/PRN molnupiravir 200 mg capsule (2 sources) Start: 12-05-2022 End: 01-01-2023 molnupiravir 200 mg capsule PLEASE SEE ATTACHED FOR DETAILED DIRECTIONS 0 12/05/2022 01/01/2023 Discontinued Start: 12-05-2022 molnupiravir 2 00 mg capsule PLEASE SEE ATTACHED FOR DETAILED DIRECTIONS 0 12/05/2022 Active Comment on above: PLEASE SEE ATTACHED FOR DETAILED DIRECTIONS naloxone hydrochloride 40 mg/ml nasal spray (20 sources) Opioid Antagonist Start: 05-04-2019 End: 06-10-2023 naloxone 4 mg/actuation nasal spray (NARCAN) Use 1 spray in one nostril as needed for overdose. May repeat every 2 to 3 min in alternating nostrils until medical assistance is available 1 Box 0 12/23/2019 06/10/2023 Discontinued Comment on above: Use 1 spray in one n ostril. May repeat every 2 to 3 minutes as needed in alternating nostrils until medical assistance becomes available. Use 1 spray in one n ostril as needed for overdose. May repeat every 2 to 3 min in alternating nostrils until medical assistance is available sodium chloride 30 mg/ml inhalation solution (20 [...] oral tablet (2 sources) Opioid Agonist Start: 03-12-19 End: 05-18-19 take 1 tablet by mouth three times daily as needed tapentadol (NUCYNTA) 50 mg Indications: Chemotherapy-induced neuropathy (HCC) , Radiation induced neuropathy (HCC) , buttermaker (current) use of opiate analgesic , Nodular [...] Do not start before March 12, 2021. tretinoin 0.5 mg/ml topical cream (20 sources) Retinoid Start: 12-08-19 End: 06-10-19 tretinoin (RETIN-A) 0.05 % cream Indications: Acne vulgaris Apply a pea size amount to affected area every other night for 2 weeks then increase to daily as tolerated 45 g 3 12/07/2021 06/10/2023 Discontinued Comment on above: Apply a pea size stefan unt to affected area every other night for 2 weeks then increase to daily as tolerated 7 actuat umeclidinium 0.0625 mg/actuat dry powder inhaler (20 sources) Anticholinergic Start: 12-19-19 End: 01-02-20 INCRUSE ELLIPTA 62.5 mcg/actuation inhaler Start: 11-19-2022 End: 04-19-2023 take 1 puff(s) by inhalation once daily umeclidinium (INCRUSE ELLIPTA) 62.5 mcg/actuation inhaler Inhale 1 Puff as instructed once daily. 0 11/19/2022 04/19/2023 Discontinued (Discontinued by another Health Care Provider) Start: 05-15-2022 End: 09-13-2022 take 1 puff(s) by inhalation once daily INCRUSE ELLIPTA 62.5 mcg/actuation inhaler Inhale 1 Puff as instructed once daily. 0 05/15/2022 09/13/2022 Discontinued Comment on above: Inhale 1 Puff as ins tructed once daily. Problems Active Problems Problem Classification Problem Date Documented Da te Episodic/Chronic Anxiety disorders (5 sources) Anxiety; 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: [Anxiety disorder, unspecified] Onset: 1208-2022 Chronic Asthma (4 sources) Asthma; 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: [Unspecified asthma, uncomplicated] Onset: 08-13-2022 08-13-2022 Chronic Chronic obstructive pulmonary disease and bronchiectasis (11 sources) Simple chronic bronchitis; 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: [Simple chronic bronchitis] Onset: 07-02-2023 Chronic Headache; including migraine (4 sources) Headache; including migraine; 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: [HEADACHE UNSPECIFIED] Onset: 06-21-2022 Hodgkin`s disease (20 sources) Hodgkin's disease, nodular sclerosis (clinical); 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: [Nodular sclerosis Hodgkin lymphoma, unspecified site] Onset: 02-05-2012 Resolved: 12-26-2015 Chronic Influenza (3 sources) Pneumonia and influenza; 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: [Influenza due to unidentified influenza virus with unspecified type of pneumonia] Onset: 04-19-2023 04-19-2023 Episodic Maintenance chemotherapy; radiotherapy (6 sources) Patient encounter status; 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: [Encounter for antineoplastic immunotherapy] Chronic Menopausal disorders (20 sources) Premature menopause; 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: [Asymptomatic premature menopause] Onset: 09-05-2016 Resolved: 12-26-2015 09-05-2016 Chronic Mood disorders (2 sources) Mild major depression, single episode; 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: [Major depressive disorder, single episode, mild] Onset: 08-23-2022 08-23-2022 Chronic Mycoses (1 source) Candidiasis of mouth; 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: [Candidal stomatitis] 06-13-2023 Episodic Osteoarthritis (1 source) Unspecified osteoarthritis, unspecified site; 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: [Arthropathy, unspecified, site unspecified] 2023 Chronic Other aftercare (20 sources) Patient encounter status; 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: [Encounter for palliative care] Episodic Other aftercare (1 source) Other salvage determiner (current) drug therapy; 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: [OTH HEMATOLOGY TECHNOLOGIST CURRENT DRUG THERAPY] Onset: 06-22-2022 Episodic Other aftercare (2 sources) Under care [...] adrenocortical insufficiency] 01-28-2023 Chronic Other gastrointestinal disorders (5 sources) Dysphagia; 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: [Dysphagia, unspecified] 03-28-2023 Episodic Other gastrointestinal disorders (2 sources) Dysphagia, unspecified; 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: [Dysphagia, unspecified type] Onset: 07-10-2023 Episodic Other inflammatory condition of skin (20 sources) Psoriasis vulgaris; 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: [Psoriasis vulgaris] Onset: 04-18-2018 04-18-2018 Chronic Other inflammatory condition of skin (20 sources) Psoriatic arthritis; 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: [Arthropathic psoriasis, unspecified] Onset: 12-20-2022 12-20-2022 Chronic Other inflammatory condition of skin (3 sources) Psoriasis; 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: [Psoriasis, unspecified] Onset: 08-23-2022 01-01-2023 Chronic Other lower respiratory disease (5 sources) Dyspnea on exertion; 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: [Other forms of dyspnea] Episodic Other lower respiratory disease (1 source) Productive cough ; 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: [Productive cough] Episodic Other lower respiratory disease (1 source) Abnormal findings on diagnostic imaging of lung; 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: [Other nonspecific abnormal finding of lung field] Episodic Other lower respiratory disease (1 source) Cough; 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: [Acute cough] 05-31-2022 Episodic Other lower respiratory disease (2 sources) Wheezing; 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: [Wheezing] 05-31-2023 Episodic Other lower respiratory disease (1 source) Wheezing; 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: [Wheezing] Onset: 05-31-2023 Episodic Other lower respiratory disease (1 source) Shortness of breath Onset: 05-31-2023 Episodic Other nervous system disorders (20 sources) Neuropathy caused by chemical substance; 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: [Drug-induced polyneuropathy] Onset: 04-25-2016 Chronic Other nervous system disorders (20 sources) Pain due to neoplastic disease; 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: [Neoplasm related pain (acute) (chronic)] Chronic Other nervous system disorders (1 source) Neoplasm related pain (acute) (chronic); 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: [Cancer related pain] Onset: 01-25-2022 Chronic Other nervous system disorders (1 source) Drug-induced polyneuropathy; 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)] Onset: 04-25-2016 Chronic Other nutritional; endocrine; and metabolic disorders (20 sources) Body mass index 30+ - obesity; 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: [Body mass index (BMI) 33.0-33.9, adult] Onset: 12-25-2019 12-25-2019 Chronic Other skin disorders (4 sources) Pain; 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: [Disorder of the skin and subcutaneous tissue, unspecified] Episodic Other skin disorders (1 source) Acne vulgaris; 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: [Acne vulgaris] Episodic Other upper respiratory disease (1 source) Congestion of nasal sinus; 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: [Nasal congestion] Episodic Other upper respiratory disease (4 sources) Hoarse; 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: [Dysphonia] Onset: 08-23-2022 03-28-2023 Episodic Other upper respiratory disease (1 source) Dysphonia; 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: [Hoarseness] Onset: 05-22-2023 Episodic Phlebitis; thrombophlebitis and thromboembolism (1 source) H/O: Deep vein thrombosis; 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: [Personal history of other venous thrombosis and embolism] 01-01-2023 Episodic Pleurisy; pneumothorax; pulmonary collapse (2 sources) Pleural effusion; 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: [Pleural effusion, not elsewhere classified] 06-13-2023 Episodic Pulmonary heart disease (1 source) Pulmonary hypertension; 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: [Pulmonary hypertension, unspecified] 06-14-2023 Chronic Residual codes; unclassified (20 sources) History of autologous bone marrow transplant; 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: [Bone marrow transplant status] Onset: 03-16-2013 Chronic Residual codes; unclassified (1 source) Bone marrow transplant status; 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: [Autologous bone marrow transplantation status (HCC)] Onset: 02-13-2021 Chronic Screening and history of mental health and substance abuse codes (1 source) Personal history of nicotine dependence; 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: [PERSONAL HISTORY OF NICOTINE DEPEND] Onset: 06-22-2022 Episodic Thyroid disorders (3 sources) Acquired hypothyroidism; 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: [Hypothyroidism, unspecified] Onset: 08-23-2022 01-01-2023 Chronic Unclassified (20 sources) SUMMARY Onset: 03-16-2013 Unclassified (1 source) NO SHOW Urinary tract infections (1 source) Acute cystitis without hematuria Episodic Viral infection (2 sources) Disease caused by 2019-nCoV; 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: [COVID-19] 03-29-2023 Episodic Past or Other Problems Problem Classification Problem Date Documented Da te Episodic/Chronic Benign neoplasm of uterus (20 sources) Uterine leiomyoma; 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: [Leiomyoma of uterus, unspecified] Onset: 8 03-15-2017 Episodic Cancer of cervix (13 sources) Low grade squamous intraepithelial lesion on cervical Papanicolaou smear; 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: [Low grade squamous intraepithelial lesion on cytologic smear of cervix (LGSIL)] Onset: 5 Resolved: 0 12-25-2019 Episodic Cardiac dysrhythmias (15 sources) Tachycardia; 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: [Tachycardia, unspecified] Onset: 4 Resolved: 6 08-23-2022 Episodic Chronic obstructive pulmonary disease and bronchiectasis (7 sources) Bronchitis, not specified as acute or chronic; 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: [Bronchitis] Onset: 1 Resolved: 1 Episodic Diabetes mellitus with complications (13 sources) Secondary diabetes mellitus; 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] Onset: 5 Resolved: 6 12-26-2015 Chronic E Codes: Adverse effects of medical drugs (1 source) Adverse effect of antineoplastic and immunosuppressive drugs, initial encounter; 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)] Onset: 7 Episodic Esophageal disorders (19 sources) Gastroesophageal reflux disease; 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: [Gastro-esophageal reflux disease without esophagitis] Onset: 6 Resolved: 6 08-23-2022 Chronic Fluid and electrolyte disorders (20 sources) Disorder of fluid AND/OR electrolyte; 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: [Other disorders of electrolyte and fluid balance, not elsewhere classified] Onset: 3 Resolved: 6 12-26-2015 Episodic Genitourinary symptoms and ill-defined conditions (20 sources) Dysuria; 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: [Dysuria] Onset: 5 Resolved: 6 Episodic HIV infection (13 sources) T-lymphocyte immunodeficiency; 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, unspecified] Onset: 5 Resolved: 6 12-26-2015 Chronic Immunizations and screening for infectious disease (1 source) Contact with and (suspected) exposure to other viral communicable diseases Onset: 1 Resolved: 1 Episodic Lung disease due to external agents (13 sources) Radiation pneumonitis; 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: [Acute pulmonary manifestations due to radiation] Onset: 5 Resolved: 6 02-13-2021 Episodic Malaise and fatigue (20 sources) Cancer-related fatigue; 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: [Neoplastic (malignant) related fatigue] Onset: 6 Resolved: 8 Episodic Menopausal disorders (13 sources) Postmenopausal state; 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: [Hormone replacement therapy] Onset: 5 Resolved: 6 02-13-2021 Episodic Menstrual disorders (13 sources) Menorrhagia; 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: [Excessive and frequent menstruation with regular cycle] Onset: 8 Resolved: 8 01-01-2018 Chronic Nausea and vomiting (19 sources) Nausea; 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: [Nausea] Onset: 4 Resolved: 6 Episodic Nonspecific chest pain (14 sources) Tight chest; 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: [Other chest pain] Onset: 4 Resolved: 6 Episodic Nutritional deficiencies (15 sources) Vitamin D deficiency; 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: [Vitamin D deficiency, unspecified] Onset: 6 Resolved: 6 08-23-2022 Chronic Other aftercare (20 sources) Drug therapy finding; 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: [buttermaker (current) use of opiate analgesic] Onset: 3 Episodic Other aftercare (1 source) buttermaker (current) use of anticoagulants; 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: [FCI CURRNT USE ANTICOAGULANTS] Onset: 2 Episodic Other aftercare (1 source) detention (current) use of opiate analgesic; 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: [Opioid use agreement exists] Onset: 2 Episodic Other aftercare (1 source) Encounter for palliative care; 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: [Encounter for palliative care] Onset: 2 Episodic Other aftercare (14 sources) Post-discharge follow-up; 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: [Encounter for follow-up examination after completed treatment for conditions other than malignant neoplasm] Onset: 4 Resolved: 6 04-19-2023 Episodic Other connective tissue disease (1 source) Cramp and spasm; 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: [Muscle cramps] Onset: 2 Episodic Other connective tissue disease (13 sources) Pain in left arm; 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: [Pain in left arm] Onset: 4 Resolved: 6 12-26-2015 Episodic Other connective tissue disease (13 sources) Other symptoms and signs involving the musculoskeletal system; 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: [Other musculoskeletal symptoms referable to limbs] Onset: 5 Resolved: 6 12-26-2015 Episodic Other connective tissue disease (13 sources) Muscle pain; 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: [Myalgia, unspecified site] Onset: 6 Resolved: 6 12-26-2015 Episodic Other female genital disorders (13 sources) Vaginal bleeding; 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: [Abnormal uterine and vaginal bleeding, unspecified] Resolved: 6 02-13-2021 Chronic Other female genital disorders (13 sources) Dyspareunia; 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: [Dyspareunia] Resolved: 6 12-26-2015 Chronic Other gastrointestinal disorders (13 sources) Diarrhea; 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: [Diarrhea, unspecified] Onset: 4 Resolved: 6 02-13-2021 Episodic Other hematologic conditions (13 sources) ESR raised; 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: [Elevated erythrocyte sedimentation rate] Onset: 4 Resolved: 6 12-26-2015 Episodic Other inflammatory condition of skin (3 sources) Erythematous condition, unspecified; 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: [ERYTHEMATOUS CONDITION UNSPECIFIED] Onset: 2 Episodic Other liver diseases (13 sources) Finding of creatine kinase level; 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: [Abnormal levels of other serum enzymes] Onset: 6 Resolved: 6 12-26-2015 Episodic Other liver diseases (13 sources) Enzyme level - finding; 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: [Abnormal levels of other serum enzymes] Onset: 6 Resolved: 6 12-26-2015 Episodic Other lower respiratory disease (20 sources) Restrictive lung disease; 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: [Other disorders of lung] Onset: 6 09-12-2015 Episodic Other lower respiratory disease (8 sources) Chronic cough; 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: [Chronic cough] Onset: 4 Episodic Other lower respiratory disease (1 source) Other disorders of lung; 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: [Restrictive lung disease] Onset: 6 Episodic Other nervous system disorders (20 sources) Radiation injury of peripheral nerve; 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] Onset: 1 Resolved: 4 10-18-2020 Chronic Other nervous system disorders (13 sources) Peripheral nerve disease ; 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: [Polyneuropathy, unspecified] Onset: 4 Resolved: 6 02-13-2021 Chronic Other nervous system disorders (13 sources) Postoperative pain ; 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: [Other acute postprocedural pain] Onset: 3 Resolved: 6 02-13-2021 Episodic Other nervous system disorders (13 sources) Abnormal gait; 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: [Unspecified abnormalities of gait and mobility] Onset: 5 Resolved: 6 12-26-2015 Episodic Other non-traumatic joint disorders (13 sources) Arthralgia of the ankle and/or foot; 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: [Pain in unspecified ankle and joints of unspecified foot] Onset: 5 Resolved: 6 12-26-2015 Episodic Other non-traumatic joint disorders (13 sources) Pain in right knee; 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: [Pain in joint, lower leg] Onset: 6 Resolved: 6 12-26-2015 Episodic Other non-traumatic joint disorders (13 sources) Multiple joint pain; 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: [Pain in unspecified joint] Onset: 6 Resolved: 6 12-26-2015 Episodic Other screening for suspected conditions (not mental disorders or infectious disease) (13 sources) Imaging result abnormal; 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: [Abnormal findings on diagnostic imaging of other specified body structures] Onset: 4 Resolved: 6 12-26-2015 Chronic Other screening for suspected conditions (not mental disorders or infectious disease) (13 sources) Other specified abnormal findings of blood chemistry; 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: [Other abnormal blood chemistry] Onset: 4 Resolved: 6 02-13-2021 Episodic Other skin disorders (16 sources) Hidradenitis suppurativa; 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: [Hidradenitis suppurativa] Onset: 6 Resolved: 8 Episodic Other skin disorders (13 sources) Hyperpigmentation of skin; 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: [Disorder of pigmentation, unspecified] Onset: 4 Resolved: 6 02-13-2021 Episodic Other upper respiratory infections (15 sources) Posterior rhinorrhea; 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: [Postnasal drip] Onset: 6 Resolved: 6 03-28-2023 Episodic Otitis media and related conditions (1 source) Otitis media, unspecified, bilateral Onset: 1 Resolved: 1 Episodic Pneumonia (except that caused by tuberculosis or sexually transmitted disease) (13 sources) Pneumocystosis pneumonia; 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: [Pneumocystosis] Onset: 5 Resolved: 6 12-26-2015 Episodic Poisoning by other medications and drugs (13 sources) Oral mucositis (ulcerative) due to antineoplastic therapy; 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: [Mucositis (ulcerative) due to antineoplastic therapy] Onset: 4 Resolved: 6 02-13-2021 Episodic Pulmonary heart disease (20 sources) Pulmonary embolism; 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: [Other pulmonary embolism without acute cor pulmonale] Onset: 3 Resolved: 8 02-13-2021 Episodic Residual codes; unclassified (15 sources) Insomnia; 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: [Insomnia, unspecified] Onset: 4 Resolved: 6 08-23-2022 Episodic Residual codes; unclassified (13 sources) Abnormal cytology findings; 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: [ASCUS favor dysplasia] Onset: 5 Resolved: 6 12-26-2015 Episodic Respiratory failure; insufficiency; arrest (adult) (13 sources) Acute hypoxemic respiratory failure; 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: [Acute respiratory failure with hypoxia] Onset: 5 Resolved: 6 02-13-2021 Episodic Sexually transmitted infections (not HIV or hepatitis) (20 sources) Human papilloma virus deoxyribonucleic acid test positive, high risk on vaginal specimen; 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: [Vaginal high risk human papillomavirus (HPV) DNA test positive] Onset: 5 09-28-2014 Episodic Skin and subcutaneous tissue infections (1 source) Cellulitis of left lower limb; 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: [CELLULITIS OF LEFT LOWER LIMB] Onset: 2 Episodic Spondylosis; intervertebral disc disorders; other back problems (13 sources) Backache; 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: [Dorsalgia, unspecified] Onset: 4 Resolved: 6 12-26-2015 Episodic Sprains and strains (13 sources) Sprain of left ankle; 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: [Sprain of unspecified ligament of left ankle, initial encounter] Onset: 5 Resolved: 6 12-26-2015 Episodic Unclassified (13 sources) DISPOSITION AND FOLLOW-UP Onset: 3 Resolved: 6 02-13-2021 Unclassified (13 sources) Drug therapy finding; 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: [DVT prophylaxis] Onset: 4 Resolved: 6 02-13-2021 Unclassified (13 sources) Reflux; 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: [Reflux] Onset: 4 Resolved: 6 02-13-2021 Results Test Name Value Interpretation Reference Range Facility XR Esophagus Views W lara HACKETTon 07-19-2023 IMPRESSION: NORMAL ESOPHAGRAM. Wet Machine Cutter: DEDE Transcribe Date/Time: Jul 19 2023 2:16P Dictated by : ADDIS SUTTON MD This examination was interpreted and the report reviewed and electronically signed by: ALEXSANDER PLASCENCIA MD on Jul 19 2023 2:33PM [facility] DIVISION OF RADIOLOGY * * *Final Report* * * DATE OF EXAM: Jul 19 2023 2:16PM [id number] - XR ESOPHAGRAM / PROCEDURE REASON: multiple diagnoses * * * * Physician Interpretation * * * * ESOPHAGRAM CLINICAL INFORMATION: Dysphagia. GERD. TECHNIQUE: A biphasic examination of the esophagus was performed utilizing effervescent granules (E-Z-Gas II - 4 grams), high density barium, and low density barium. Contrast: ORAL: 200 ml of EZPAQUE ORAL: 150 ml of EZHD ORAL: 1 13 mm EZ DISK tablet Fluoroscopy radiation summary: Fluoroscopy time: 2:30 (min:sec). Air kerma: 44.9 mGy. RESULT: Caliber: Normal. Stricture, Ring, or Web: None. Motility: Normal. Hiatal Hernia: Absent. Gastroesophageal Reflux: None, despite provocative maneuvers including cough, Valsalva, straight leg raise, and water siphon. Gastric Cardia: Normal. Barium Tablet: Passed easily without reproducing symptoms. Other Findings: None. Staff Physician: Alexsander Plascencia M.D. was present for the critical portions of the procedure and was immediately available throughout the remainder of the procedure. DIVISION OF RADIOLOGY Provider, [facility] - 07/19/2023 * * *Final Report* * * DATE OF EXAM: Jul 19 2023 2:16PM [id number] - XR ESOPHAGRAM / PROCEDURE REASON: multiple diagnoses * * * * Physician Interpretation * * * * ESOPHAGRAM CLINICAL INFORMATION: Dysphagia. GERD. TECHNIQUE: A biphasic examination of the esophagus was performed utilizing effervescent granules (E-Z-Gas II - 4 grams), high density barium, and low density barium. Contrast: ORAL: 200 ml of EZPAQUE ORAL: 150 ml of EZHD ORAL: 1 13 mm EZ DISK tablet Fluoroscopy radiation summary: Fluoroscopy time: 2:30 (min:sec). Air kerma: 44.9 mGy. RESULT: Caliber: Normal. Stricture, Ring, or Web: None. Motility: Normal. Hiatal Hernia: Absent. Gastroesophageal Reflux: None, despite provocative maneuvers including cough, Valsalva, straight leg raise, and water siphon. Gastric Cardia: Normal. Barium Tablet: Passed easily without reproducing symptoms. Other Findings: None. Staff Physician: Alexsander Plascencia M.D. was present for the critical portions of the procedure and was immediately available throughout the remainder of the procedure. IMPRESSION IMPRESSION: NORMAL ESOPHAGRAM. Wet Machine Cutter[facility] Transcribe Date/Time: Jul 19 2023 2:16P Dictated by : ADDIS SUTTON MD This examination was interpreted and the report reviewed and electronically signed by: ALEXSANDER PLASCENCIA MD on Jul 19 2023 2:33PM EST [facility] Radiology Study observation (narrative) [facility] XR Esophagus Views W lara george POOrdered By: [facility] Provider on 07-19-2023 [facility] CNTHERAPYon 07-10-2023 CNTHERAPY OT/PT/Speech Visit ([facility]) DOCRASCELSO ROONEY Junior ([id number]) 1980 F Date Time Provider Department 07/10/23 1:00 PM CYNTHIA GUAJARDO [facility] Date Time Provider Department Center 07/10/2023 1:00 PM [id number], MELANIE [facility] Jess Rachael Reason for Visit: Speech Instrumental Swallow Eval [3660] Speech Discharge [3488] Primary Visit Diagnosis:Dysphagia, unspecified type [R13.10] Allergies As of Date: 07/10/2023 Noted Allergy Reaction CHLORHEXIDINE 03/11/2013 9 - Itching Comments: Severe skin irritation. Had used for central line care SULFA (SULFONAMIDE ANTIBIOTICS) 01/07/2012 2 - Rash Date Reviewed: 06/28/2023 Reviewed by: Nadir Rowan LPN - Fully Assessed Prescriptions as of 07/10/2023 - llnfoszailo-dgoayaufs-v ilanter (TRELEGY ELLIPTA) 200-62.5-25 mcg inhalation powder Inhale 1 Puff as instructed once daily. - fluticasone (FLONASE ALLERGY RELIEF) 50 mcg/actuation nasal spray Use 1 [place] in each nostril once daily. - oxyCODONE IR (ROXICODONE) 10 mg tab Take 1 tablet by mouth every 6 hours as needed for pain for up to 30 days. - levoFLOXacin (LEVAQUIN) 750 mg tablet Take 1 tablet by mouth once daily. - ipratropium-albuterol (DUONEB) 0.5 mg-3 mg(2.5 mg base)/3 mL nebu inhale contents of 1 vial ( 3 MILLILITERS ) in nebulizer by mouth and INTO THE LUNGS every 6 hours if needed for wheezing or shortness of breath - pantoprazole DR (PROTONIX) 40 mg tablet Take 1 tablet by mouth once daily. - baclofen 5 mg tablet take 1 tablet by mouth three times a day - cyclobenzaprine (FLEXERIL) 10 mg tablet Take 1 tablet by mouth three times a day as needed for muscle spasm. - azelastine 0.1% nasal spray Use 1 [place] in each nostril two times a day. - prochlorperazine (COMPAZINE) 10 mg tablet take 1 tablet by mouth every 6 hours if needed - LORazepam (ATIVAN) 0.5 mg take 1 tablet by mouth four times a day if needed for anxiety - XARELTO 10 mg tablet take 1 tablet by mouth once daily - Biotin 2,500 mcg cap - mirtazapine (REMERON) 30 mg tablet Take 30 mg by mouth daily at bedtime. - fluocinonide (LIDEX) 0.05 % cream apply to affected area ON THE RIGHT HAND and legs TWICE A DAY - levothyroxine (SYNTHROID) 75 mcg tablet Take 1 tablet by mouth once daily. - triamcinolone acetonide (KENALOG) 0.1 % ointment APPLY TO THE AFFECTED AREA TWICE A DAY FOR 5 DAYS - traZODone (DESYREL) 50 mg tablet Take 100 mg by mouth daily at bedtime. - Vitamin B Comp and C No.3 (B COMPLEX PLUS VITAMIN C) 64-73-40-5-300 mg cap Take 1 tablet by mouth once daily. - Lactobac no.41/Bifidobact no.7 (PROBIOTIC-10 ORAL) Take by mouth. - atenolol (TENORMIN) 50 mg tablet take 1 tablet by mouth twice a day - CHOLECALCIFEROL, VITAMIN D3, (VITAMIN D3 ORAL) Take 1,000 Units by mouth once daily. Meds Comments as of 04/02/2013: stop lovanox 24hours prior to surgery last Saturday11/01/12 -pt notes she is taking a control pill, unsure of name, states it changes everytime. states she will be off of it soon. [facility] RF videography Hypopharynx a nd Esophagus Views W liquid and paste contrast PO during swallowingon 07-10-2023 IMPRESSION: THE VIC CH PATHOLOGIST REPORT AND RECOMMENDATIONS ARE PRESENT IN THE NOTES COMPONENT OF [facility] Wet Machine Cutter: PSCB Transcribe Date/Time: Jul 10 2023 3:06P Dictated by : ERIC GREENFIELD MD This examination was interpreted and the report reviewed and electronically signed by: ERIC GREENFIELD MD on Jul 10 2023 3:06PM [facility] RADIOLOGY * * *Final Report* * * DATE OF EXAM: Jul 10 2023 2:12PM [id number] [id number] - XR MOD BARIUM SWALLOW W SPEECH / PROCEDURE REASON: Dysphagia, unspecified type * * * * Physician Interpretation * * * * VIDEO SWALLOW HISTORY: dysphagia Fluoroscopic Radiation Summary: Plane A, Air Kerma: 18.9 mGy Plane B, Air Kerma: 0.0 mGy Dose Area Product (DAP): Fluoro time: 3:18 min:sec RESULT: Fluoroscopy was provided during performance of a swallowing evaluation by the speech pathologist. [facility] Provider, Ccwillian Hightower [facility] - 07/10/2023 * * *Final Report* * * DATE OF EXAM: Jul 10 2023 2:12PM VHX 5377 - XR MOD BARIUM SWALLOW W SPEECH / PROCEDURE REASON: Dysphagia, unspecified type * * * * Physician Interpretation * * * * VIDEO SWALLOW HISTORY: dysphagia Fluoroscopic Radiation Summary: Plane A, Air Kerma: 18.9 mGy Plane B, Air Kerma: 0.0 mGy Dose Area Product (DAP): Fluoro time: 3:18 min:sec RESULT: Fluoroscopy was provided during performance of a swallowing evaluation by the speech pathologist. IMPRESSION IMPRESSION: THE SPEECH PATHOLOGIST REPORT AND RECOMMENDATIONS ARE PRESENT IN THE NOTES COMPONENT OF [facility] Wet Machine Cutter: PSCB Transcribe Date/Time: Jul 10 2023 3:06P Dictated by : ERIC GREENFIELD MD This examination was interpreted and the report reviewed and electronically signed by: ERIC GREENFIELD MD on Jul 10 2023 3:06PM EST [facility] Radiology Study observation (narrative) [facility] RF videography Hypopharynx a nd Esophagus Views W liquid and paste contrast PO during swallowingOrdered By: Ccf Provider on 07-10-2023 [facility] XR MOD BARIUM SWALLOW W SPEE Ingrid 07-10-2023 XR MOD BARIUM SWALLOW W SPEECH * * *Final Report* * * DATE OF EXAM: Jul 10 2023 2:12PM VHX 5377 - XR MOD BARIUM SWALLOW W SPEECH / PROCEDURE REASON: Dysphagia, unspecified type * * * * Physician Interpretation * * * * VIDEO SWALLOW HISTORY: dysphagia Fluoroscopic Radiation Summary: Plane A, Air Kerma: 18.9 mGy Plane B, Air Kerma: 0.0 mGy Dose Area Product (DAP): Fluoro time: 3:18 min:sec RESULT: Fluoroscopy was provided during performance of a swallowing evaluation by the speech pathologist. IMPRESSION: THE SPEECH PATHOLOGIST REPORT AND RECOMMENDATIONS ARE PRESENT IN THE NOTES COMPONENT OF [facility] Wet Machine Cutter: PSCEdwin Transcribe Date/Time: Jul 10 2023 3:06P Dictated by : ERIC GREENFIELD MD This examination was interpreted and the report reviewed and electronically signed by: ERIC GREENFIELD MD on Jul 10 2023 3:06PM EST [id number] [facility] CBC W Auto Differential pane l (Bld)on 06-10-2023 Basophils (Bld) [#/Vol] 0.03 10*3/uL [facility] Basophils/100 WBC (Bld) 0.3 % [facility] Differential cell count method Nom (Bld) Auto [facility] Eosinophils (Bld) [#/Vol] 0.08 10*3/uL [facility] Eosinophils/100 WBC (Bld) 0.7 % [facility] Erythrocyte distribution width (RBC) [Ratio] 14.2 % 11.5 - 15.0 % [facility] Hematocrit (Bld) [Volume fraction] 44.1 % 36.0 - 46.0 % [facility] Hemoglobin (Bld) [Mass/Vol] 14.6 g/dL 11.5 - 15.5 g/dL [facility] Immature granulocytes (Bld) [#/Vol] 0.06 10*3/uL [facility] Immature granulocytes/100 WBC (Bld) 0.5 % [facility] Interpretation and review of laboratory results Abnormal [facility] Lymphocytes (Bld) [#/Vol] 2.11 10*3/uL [facility] Lymphocytes/100 WBC (Bld) 18.3 % [facility] MCH (RBC) [Entitic mass] 31.5 pg 26.0 - 34.0 pg [facility] MCHC (RBC) [Mass/Vol] 33.1 g/dL 30.5 - 36.0 g/dL [facility] MCV (RBC) [Entitic vol] 95.2 fL 80.0 - 100.0 fL [facility] Monocytes (Bld) [#/Vol] 0.67 10*3/uL NINF [facility] Monocytes/100 WBC (Bld) 5.8 % [facility] Neutrophils (Bld) [#/Vol] 8.55 10*3/uL High [facility] Neutrophils/100 WBC (Bld) 74.4 % [facility] Nucleated RBC (Bld) [#/Vol] NINF [facility] Nucleated RBC/100 WBC (Bld) [Ratio] 0.0 % /100 WBC [facility] Platelet mean volume (Bld) [Entitic vol] 8.8 fL Low 9.0 - 12.7 fL [facility] Platelets (Bld) [#/Vol] 312 10*3/uL [facility] RBC (Bld) [#/Vol] 4.63 10*6/uL 3.90 - 5.2 0 m/uL [facility] WBC (Bld) [#/Vol] 11.50 10*3/uL High [facility] Comprehensive metabolic 2000 panelOrdered By: Zaira Rivera on 06-10-2023 Albumin [Mass/Vol] 4.1 g/dL 3.9 - 4.9 g/dL [facility] ALP [Catalytic activity/Vol] 71 U/L 34 - 123 U/L [facility] ALT [Catalytic activity/Vol] 41 U/L High 7 - 38 U/L [facility] Anion gap [Moles/Vol] 14 mmol/L 9 - 18 mmol/L [facility] AST [Catalytic activity/Vol] 27 U/L 13 - 35 U/L [facility] Bilirubin [Mass/Vol] 0.5 mg/dL 0.2 - 1 .3 mg/dL [facility] Calcium [Mass/Vol] 9.5 mg/dL 8.5 - 10. 2 mg/dL [facility] Chloride [Moles/Vol] 104 mmol/L 97 - 10 5 mmol/L [facility] CO2 [Moles/Vol] 24 mmol/L 22 - 30 mmol/L [facility] Creatinine [Mass/Vol] 0.74 mg/dL 0.58 - 0.96 mg/dL [facility] GFR/1.73 sq M.predicted among non-blacks MDRD (S/P/Bld) [Vol rate/Area] 105 mL/min/{1.73_m2} - PINF [facility] Comment on above: Estimated Glomerular Filtration Rate (eGFR) is calculated using the 2020 CKD-EPI creatinine equation. This equation utilizes serum creatinine, sex, and age as parameters. The creatinine assay has traceable calibration to isotope dilution-mass spectrometry. Refer to KDIGO guidelines for clinical interpretation. In patients with unstable renal function, e.g. those with acute kidney injury, the eGFR may not accurately reflect actual GFR. Glucose [Mass/Vol] 137 mg/dL High 74 - 99 mg/dL [facility] Comment on above: The [place] Diabete s Association (ADA) provides guidance for cutoff values [...] Standards of Medical Care in Diabetes 2016, [place] Diabetes Association. Diabetes Care. 2016.39(Suppl 1). Interpretation and review of laboratory results Abnormal [facility] Potassium [Moles/Vol] 3.9 mmol/L 3.7 - 5.1 mmol/L [facility] Protein [Mass/Vol] 6.6 g/dL 6.3 - 8.0 g/dL [facility] Sodium [Moles/Vol] 142 mmol/L 136 - 144 mmol/L [facility] Urea nitrogen [Mass/Vol] 19 mg/dL 7 - 21 mg/dL [facility] ESR Westergren method (Bld) [Velocity]on 06-10-2023 ESR (Bld) [Velocity] 5 mm/h [facility] Interpretation and review of laboratory results Normal [facility] IMMUNOGLOBULIN Lorenzo IgG [Mass/Vol] 836 mg/dL 700 - 1600 mg/dL [facility] IgG [Mass/Vol]on 06-10-2023 Interpretation and review of laboratory results Normal [facility] T4/FTI/T4Uon 06-10-2023 FTI 8.4 ug/dL 5.3 - 10.8 ug/dL [facility] Interpretation and review of laboratory results Normal [facility] T4 [Mass/Vol] 8.3 ug/dL 5.5 - 10.2 ug/dL [facility] T4 uptake [Mass/Vol] 0.99 0.91 - 1.19 [facility] THYROID STIMULATING HORMONEo n 06-10-2023 TSH Qn 0.445 m[IU]/L [facility] Comment on above: If the patient is pr egnant, TSH reference range varies by gestational period: First Trimester (weeks 9-12): 0.180-2.990 mIU/L Second Trimester: 0.110-3.980 mIU/L Third Trimester: 0.480-4.710 mIU/L Samuel Patel et al. A Practical Approach for the Verifications and Determination of Site- and Trimester-Specific Reference Intervals for Thyroid Function tests in . Thyroid, 2019:29:3:412-420. Mirza E, et al. 2017 Guidelines of the [place] Thyroid Association for the Diagnosis and Management of Thyroid Disease during and the . Thyroid, 2017:27:3:315-389. TSH Qnon 06-10-2023 Interpretation and review of laboratory results Normal [facility] XR Chest PA and Lateralon [facility] XR CHEST 2V FRONTAL/LATon XR CHEST 2V FRONTAL/LAT * * *Final Report* * * DATE OF EXAM: Apr 19 2023 9:38AM VHX 5291 - XR CHEST 2V FRONTAL/LAT / PROCEDURE REASON: Influenza with pneumonia * * * * Physician Interpretation * * * * EXAMINATION: CHEST RADIOGRAPH (2 VIEW FRONTAL and LATERAL) CLINICAL HISTORY: Influenza with pneumonia MQ: [id number] EXAM DATE/TIME: 04/19/2023 9:38 AM COMPARISON: CT chest, 07/17/2022 RESULT: Lines, tubes, and devices: None. 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 There are no new consolidations. Suspected minimal smooth left pleural thickening. No pleural effusion. No pneumothorax. Cardiomediastinal silhouette: Normal cardiomediastinal silhouette. Bones and soft tissues: Unremarkable. IMPRESSION: See result. Wet Machine Cutter: DEDE Transcribe Date/Time: Apr 21 2023 5:48A Dictated by : KOLE KEARNEY MD This examination was interpreted and the report reviewed and electronically signed by: KOLE KEARNEY MD on Apr 21 2023 5:49AM EST [id number] [facility] NITRIC OXIDE, EXHALEDon 02-0 [facility] Urinalysis - AUTOMATEDon Appearance (U) clear [employer] Other Bilirubin Ql (U) Negative [employer] Other Color (U) bright yellow [employer] Other Glucose Ql (U) Negative [employer] Other Hemoglobin Ql (U) Negative [employer] [facility] Other Ketones Ql (U) Negative [employer] Other Leukocyte esterase Test strip Ql (U) trace [employer] Other Nitrite Ql (U) Negative [employer] Other pH (U) 6.0 [pH] [employer] Other Protein Ql (U) Negative [employer] Other Specific gravity (U) [Rel density] 1.010 [employer] Other Urobilinogen (U) [Mass/Vol] 0.2 mg/dL [employer] Other Urinalysis - AUTOMATED [employer] Other Urine Cultureon 01-29-2023 Bacteria identified Cx Nom (U) Reason for Exam Dysuria Urine Reason for Exam: Dysuria : Urine ORGANISM: Escherichia coli (O:ESCCOL) [place] Count >100,000 Aerobic RICARDO Charge (NMIC56) -- [...] RESISTANT TO ALL B-LACTAM DRUGS. PERFORMED BY: [facility] [address] [place] [address] PATHOLOGIST ECOMMERCE MANAGER MARGARITA HAYWOOD M.D. Normal [facility] Comment on above: Performed By: #### C UU #### [facility] [address] CORTISOL BLDon 01-02-2023 Cortisol [Mass/Vol] 1.6 ug/dL Low 4.8 - 19 .5 ug/dL [facility] ESR Westergren method (Bld) [Velocity]on 01-02-2023 ESR (Bld) [Velocity] 2 mm/h 0 - 20 mm/hr Cl [facility] T4/FTI/T4Uon 01-02-2023 FTI 7.5 ug/dL 5.3 - 10.8 ug/dL [facility] T4 [Mass/Vol] 7.6 ug/dL 5.5 - 10.2 ug/dL [facility] T4 uptake [Mass/Vol] 1.01 0.91 - 1.19 [facility] TSH BLDon 01-02-2023 TSH Qn 1.820 m[IU]/L 0.270 - 4.200 mIU/L [facility] CBC W Auto Differential pane l (Bld)on 01-01-2023 Basophils (Bld) [#/Vol] <0.11 k/uL [facility] Basophils/100 WBC (Bld) 0.2 % [facility] Differential cell count method Nom (Bld) Auto [facility] Eosinophils (Bld) [#/Vol] 0.21 10*3/uL <0.46 k/uL [facility] Eosinophils/100 WBC (Bld) 2.6 % [facility] Erythrocyte distribution width (RBC) [Ratio] 13.8 % 11.5 - 15.0 % [facility] Hematocrit (Bld) [Volume fraction] 44.6 % 36.0 - 46.0 % [facility] Hemoglobin (Bld) [Mass/Vol] 14.6 g/dL 11.5 - 15.5 g/dL [facility] Immature granulocytes (Bld) [#/Vol] 0.08 10*3/uL <0.10 k/uL [facility] Immature granulocytes/100 WBC (Bld) 1.0 % [facility] Lymphocytes (Bld) [#/Vol] 2.56 10*3/uL 1.00 - 4.00 k/uL [facility] Lymphocytes/100 WBC (Bld) 32.0 % [facility] MCH (RBC) [Entitic mass] 31.1 pg 26.0 - 34.0 pg [facility] MCHC (RBC) [Mass/Vol] 32.7 g/dL 30.5 - 36.0 g/dL [facility] MCV (RBC) [Entitic vol] 94.9 fL 80.0 - 100.0 fL [facility] Monocytes (Bld) [#/Vol] 0.62 10*3/uL <0.87 k/uL [facility] Monocytes/100 WBC (Bld) 7.7 % [facility] Neutrophils (Bld) [#/Vol] 4.52 10*3/uL 1.45 - 7.50 k/uL [facility] Neutrophils/100 WBC (Bld) 56.5 % [facility] Nucleated RBC (Bld) [#/Vol] <0.01 k/uL [facility] Nucleated RBC/100 WBC (Bld) [Ratio] 0.0 /100 WBC [facility] Platelet mean volume (Bld) [Entitic vol] 9.0 fL 9.0 - 12.7 fL [facility] Platelets (Bld) [#/Vol] 320 10*3/uL 150 - 400 k/uL [facility] RBC (Bld) [#/Vol] 4.70 10*6/uL 3.90 - 5.2 0 m/uL [facility] WBC (Bld) [#/Vol] 8.01 10*3/uL 3.70 - 11. 00 k/uL [facility] Comprehensive metabolic 2000 panelon 01-01-2023 Albumin [Mass/Vol] 4.5 g/dL 3.9 - 4.9 g/dL [facility] ALP [Catalytic activity/Vol] 93 U/L 34 - 123 U/L [facility] ALT [Catalytic activity/Vol] 49 U/L High 7 - 38 U/L [facility] Anion gap [Moles/Vol] 9 mmol/L 9 - 18 mmol/L [facility] AST [Catalytic activity/Vol] 38 U/L High 13 - 35 U/L [facility] Bilirubin [Mass/Vol] 0.2 mg/dL 0.2 - 1 .3 mg/dL [facility] Calcium [Mass/Vol] 9.6 mg/dL 8.5 - 10. 2 mg/dL [facility] Chloride [Moles/Vol] 102 mmol/L 97 - 10 5 mmol/L [facility] CO2 [Moles/Vol] 28 mmol/L 22 - 30 mmol/L [facility] Creatinine [Mass/Vol] 0.68 mg/dL 0.58 - 0.96 mg/dL [facility] Estimated Glomerular Filtration Rate 113 mL/min/1.73m >=60 mL/min/1.73m [facility] Glucose [Mass/Vol] 102 mg/dL High 74 - 99 mg/dL [facility] Potassium [Moles/Vol] 4.4 mmol/L 3.7 - 5.1 mmol/L [facility] Protein [Mass/Vol] 7.3 g/dL 6.3 - 8.0 g/dL [facility] Sodium [Moles/Vol] 139 mmol/L 136 - 144 mmol/L [facility] Urea nitrogen [Mass/Vol] 9 mg/dL 7 - 21 mg/dL [facility] LD LACTATE DEHYDROon 023 LDH [Catalytic activity/Vol] 283 U/L High 135 - 214 U/L [facility] MAGNESIUM BLDon 01-01-2023 Magnesium [Mass/Vol] 2.5 mg/dL High 1.7 - 2 .3 mg/dL [facility] CNOVon 12-20-2022 [facility] DELROYCELSO R ([id number]) 1980 F Date Time Provider Department 12/20/22 10:00 AM JUAN FRANCISCO HUTCHINSON [facility] During your visit today, we recorded the following information about you: Temperature Pulse Blood pressure Weight 97.9 degrees 103/minute 119/82 101.2 kg Juan Francisco Hutchinson, LORY.LEAD SYSTEMS DEVELOPER 12/20/2022 1:10 PM Signed PALLIATIVE MEDICINE PROGRESS [...] following for symptom control needs. Subjective Last [facility] care visit 10/18/22 Did not tolerate lyrica [...] not follow up as it was in [place] and not close to her home. Keeps well hydrated because dehydration has always made these symptoms worse. She is taking gabapentin 600 mg TID. Also taking oxycodone 10 mg 3-4 times per day Denies confusion, oversedation, myoclonus, constipation Fatigued but does not sleep during the day Going out with friends and keeping busy as much as she can Modified ESAS ([place]incoln Symptom Assessment Scale) Information Provided By: Patient [...] (more content not included)... Normal [facility] CNNURSEon 10-18-2022 CNNURSE Nurse Visit (AMDERM) CELSO POTTS ([id number]) 1980 F Date Time Provider Department 10/18/22 10:30 AM NURSE [facility] During your visit today, we recorded [...] for comfort Referring Provider: JUAN FRANCISCO HUTCHINSON [[id number]] Allergies As of Date: 10/18/2022 Noted Allergy Reaction CHLORHEXIDINE 03/11/2013 9 - Itching Comments: Severe skin irritation. Had used for central line care SULFA (SULFONAMIDE ANTIBIOTICS) 01/07/2012 2 - Rash Date Reviewed: 10/18/2022 Reviewed by: Juan Francisco Hutchinson APRN.LEAD SYSTEMS DEVELOPER - Fully Assessed Reason for Visit: LESION, [...] C No.3 (B COMPLEX PLUS VITAMIN C) 59-39-17-5-300 mg cap Take 1 tablet by mouth once daily. - Dexlansoprazol (more content not included)... Normal [facility] CNOVon 10-18-2022 CNOV Office Visit ([facility] ) CELSO POTTS ([id number]) 1980 F Date Time Provider Department 10/18/22 11:30 AM JUAN FRANCISCO HUTCHINSON [facility] During your visit today, we recorded the following information about you: Temperature Pulse Blood pressure Weight 98.2 degrees 96/minute 116/81 102 kg Juan Francisco Hutchinson APRN.CNP 10/18/2022 3:27 PM Signed PALLIATIVE MEDICINE PROGRESS [...] Denies confusion, oversedation, myoclonus, constipation. Modified ESAS ([place] Symptom Assessment Scale) Information Provided By: Patient [...] 10/18/2022 by (more content not included)... Normal [facility] Varun 10-18-2022 PEDRON Telephone (CNFVM) CELSO POTTS ([id number]) 1980 F Date Time Provider Department 10/18/22 KYLIE MOSHER CNFVM During your visit today, we recorded the following information about you: Kylie Mosher RN 10/18/2022 3:19 PM Addendum Prior Authorization Documentation Prior authorization requested via Covermymeds for the following medication: Medication: Lyrica 100 mg capsules Approved and authorizes your coverage from 02/18/2022 - 02/17/2023, Insurance Company Name: [employer] Phone number: [phone] Patient ID number: [id number] Da Silva [id number] Pharmacy Name: [facility] Telephone number: [phone] Kylie Mosher RN October 18, 2022 1:38 PM Allergies As of Date: 10/18/2022 Noted Allergy Reaction CHLORHEXIDINE 03/11/2013 9 - Itching Comments: Severe skin irritation. Had used for central line care SULFA (SULFONAMIDE ANTIBIOTICS) 01/07/2012 2 - Rash Date Reviewed: 10/18/2022 Reviewed by: Juan Francisco Hutchinson APRN.LEAD SYSTEMS DEVELOPER - Fully Assessed Reason for Visit: Insurance [...] C No.3 (B COMPLEX PLUS VITAMIN C) 70-19-35-5-300 mg cap Take 1 tablet by mouth [...] [G47.00] (more content not included)... Normal [facility] CNOVon 09-13-2022 CNOV Office Visit (PULMAV ) CELSO POTTS ([id number]) 1980 F Date Time Provider Department 09/13/22 10:00 AM SUMMER CARVER PULMAV During your visit today, we recorded the following information about you: Pulse Respiration Blood pressure Weight 95/minute 16/minute 121/87 103.9 kg Summer Carver MD 09/13/2022 11:12 AM Signed Celso Potts is a 42 year old [...] PFT: SPIROMETRY - BASELINE AND POST DILATOR ([id number]) - ordered on 11/03/19 [facility] [address] [facility] [place] [address] Test Date: 2019-11-03 Pat Name: CELSO POTTS Department: Room: Gender: Female Turn Out Worker: Perla Baker : 1980 Requested By: Order Number: [id number] Reading MD: Justin Moreno Interpretive Statements PRE [...] 38 .4 FIVC L 2.35 2.35 0.0 XWB74-67% L/s 2.36 2.36 3. (more content not included)... Normal [facility] CNOVSPon 08-22-2022 CNOVSP Visit (SP) Office (HEMAVN) CELSO POTTS ([id number]) 1980 F Date Time Provider Department 08/22/22 [...] pneumonitis She saw Dr. Alejandro sarmiento at [facility] for 2nd opinion cell([id number]) She agreed with out plan and recommended [...] FAMILY HISTORY (more content not included)... Normal [facility] PET/CT SKULL-THIGH SUBQon 08-14-2022 MN PET/CT SKULL-THIGH SUBQ * * *Final Report* * * DATE OF EXAM: Aug 14 2022 1:45PM NRN 0063 - MN PET/CT SKULL-THIGH SUBQ / PROCEDURE REASON: Nodular [...] any questions regarding this interpretation, please call [phone]. If you are unable to reach us at the number above, please feel free to contact [facility] eRadiology at [phone]. [id number] Normal [facility] Varun 08-02-2022 PEDRON Telephone (PULMLO) DORCASCELSO ROONEY ([id number]) 1980 F Date Time Provider Department 08/02/22 ELLA CHAN During your visit today, we recorded the following information about you: Ella Chan APRN.LEAD SYSTEMS DEVELOPER 08/02/2022 5:06 PM Signed Discussed patient's recent [...] [R05.3] Order(s):SPIROMETRY - BASELINE AND POST DILATOR [2393322] Order #: [id number]: 1 FUTURE LUNG DIFFUSION CAPACITY (DLCO) [[id number]] Order #: [id number]: 1 FUTURE NITRIC OXIDE, EXHALED [[id number]] Order #: [id number]: 1 FUTURE Prescriptions as of 08/05/2022 - [...] C No.3 (B COMPLEX PLUS VITAMIN C) 39-44-25-5-300 mg cap Take 1 tablet by mouth [...] (more content not included)... Normal [facility] CNOVon 08-01-2022 CNOV Office Visit (PULMLO ) CELSO POTTS ([id number]) 1980 F Date Time Provider Department 08/01/22 [...] or chills. Electronically signed by Ella Chan APRN.[facility] Respiratory [place], [facility] July 31, 2022 HPI: Celso Potts [...] the pulmonary office on 06/04/2022 by SARAH. PHANI from that visit as follows: ASSESSMENT/PLAN: 1. [...] (more content not included)... Normal [facility] CNOVon 07-31-2022 CNOV Office Visit (AMDER[facility] ) CELSO POTTS ([id number]) 1980 F Date Time Provider Department 07/31/22 11:00 AM [facility] During your visit today, we recorded the following information about you: Nova Bridges APRN.CNP 07/31/2022 11:32 AM Signed SKIN EXAM ESTABLISHED [...] C No.3 (B COMPLEX PLUS VITAMIN C) 99-11-93-5-300 mg cap Take 1 tablet by mouth [...] (more content not included)... Normal [facility] CBC AUTO DIFFon 06-21-2022 BASO # 0.0 103/ul Normal 0.0-0.1 [facility] Comment on above: Performed By: #### C BC #### [facility] [address] [address] [address] Kristina Morales Basophils/100 WBC (Bld) 0.4 % Normal 0.2-2.0 [facility] Comment on above: Performed By: #### C BC #### [facility] [address] [address] [address] Kristina Morales EO # 0.2 103/ul Normal 0.0-0.7 [facility] Comment on above: Performed By: #### C BC #### [facility] [address] [address] [address] Kristina Morales Eosinophils/100 WBC (Bld) 2.9 % Normal 0.9-7.0 [facility] Comment on above: Performed By: #### C BC #### [facility] [address] [address] [address] Kristina Morales Erythrocyte distribution width (RBC) [Ratio] 13.7 % Normal 11.0-15.0 [facility] Comment on above: Performed By: #### C BC #### [facility] [address] [address] [address] Kristina Morales Hematocrit (Bld) [Volume fraction] 44.2 % Normal 36.0-48.0 [facility] Comment on above: Performed By: #### C BC #### [facility] [address] [address] [address] Kristina Morales Hemoglobin (Bld) [Mass/Vol] 14.9 g/dL Normal 12.0-16.0 [facility] Comment on above: Performed By: #### C BC #### [facility] [address] [address] [address] Kristina Morales IG # 0.02 10e3/ul Normal 0.00-0.03 [facility] Comment on above: Performed By: #### C BC #### [facility] [address] [place] [address] Dr. Kristina Morales IG % 0.3 % Normal 0.0-0.5 [facility] Comment on above: Performed By: #### C BC #### [facility] [address] [place] [address] Dr. Kristina Morales LYMPH # 2.0 103/ul Normal 1.2-3.8 [facility] Comment on above: Performed By: #### C BC #### [facility] [address] [place] [address] Dr. Kristina Morales Lymphocytes/100 WBC (Bld) 27.8 % Normal 20.5-60.0 [facility] Comment on above: Performed By: #### C BC #### [facility] [address] [place] [address] Dr. Kristina Morales MANUAL DIFF REQ NO Normal [facility] Comment on above: Performed By: #### C BC #### [facility] [address] [place] [address] Dr. Kristina Morales MCH (RBC) [Entitic mass] 32.0 pg Normal 26.7-34.0 [facility] Comment on above: Performed By: #### C BC #### [facility] [address] [place] [address] Dr. Kristina Morales MCHC (RBC) [Mass/Vol] 33.7 g/dL Normal 29.9-35.2 [facility] Comment on above: Performed By: #### C BC #### [facility] [address] [place] [address] Dr. Kristina Morales MCV (RBC) [Entitic vol] 94.8 fL Normal 81.0-99.0 [facility] Comment on above: Performed By: #### C BC #### [facility] [address] [place] [address] Dr. Kristina Morales MONO # 0.7 103/ul Normal 0.3-0.8 [facility] Comment on above: Performed By: #### C BC #### [facility] [address] [address] [address] Kristina Morales Monocytes/100 WBC (Bld) 9.5 % Normal 1.7-12.0 [facility] Comment on above: Performed By: #### C BC #### [facility] [address] [address] [address] Kristina Morales NEUT # 4.2 103/ul Normal 1.4-6.5 [facility] Comment on above: Performed By: #### C BC #### [facility] [address] [address] [address] Kristina Morales Neutrophils/100 WBC (Bld) 59.1 % Normal 43.0-75.0 [facility] Comment on above: Performed By: #### C BC #### [facility] [address] [place] [address] Dr. Kristina Morales Platelet mean volume (Bld) [Entitic vol] 9.1 fL Critically low 9.5-13.5 [facility] Comment on above: Performed By: #### C BC #### [facility] [address] [place] [address] Dr. Kristina Morales PLT 302 103/ul Normal 150-450 [facility] Comment on above: Performed By: #### C BC #### [facility] [address] [place] [address] Dr. Kristina Morales RBC 4.66 106/ul Normal 4.20-5.40 [facility] Comment on above: Performed By: #### C BC #### [facility] [address] [place] [address] Dr. Kristina Morales WBC 7.2 103/ul Normal 4.0-11.0 [facility] Comment on above: Performed By: #### C BC #### [facility] [address] [place] [address] Dr. Kristina Morales CRPon 06-21-2022 CRP 2.2 mg/dL Critically high <=1.0 [facility] Comment on above: Performed By: #### C RP, BMP #### [facility] [address] [address] [address] HEAD WO CONon [...] acute intracranial abnormality. Electronically authenticated by: CONG ALMANZAR Date: 2022-06-21 05:34 Normal [facility] PROF CHEM 8 (BAS METB)on Anion gap [Moles/Vol] 11.9 mmol/L Normal [facility] Comment on above: Performed By: #### C RP, BMP #### [facility] [address] [place] [address] Dr. Kristina Morales Calcium [Mass/Vol] 9.5 mg/dL Normal 8.5-10.1 [facility] Comment on above: Performed By: #### C RP, BMP #### [facility] [address] [place] [address] Dr. Kristina Morales Chloride [Moles/Vol] 106 mmol/L Normal 98-107 [facility] Comment on above: Performed By: #### C RP, BMP #### [facility] [address] [address] [address] Kristina Morales CO2 [Moles/Vol] 26.7 mmol/L Normal 21.0-32.0 [facility] Comment on above: Performed By: #### C RP, BMP #### [facility] [address] [address] [address] Kristina Morales Creatinine [Mass/Vol] 0.91 mg/dL Normal 0.55-1.02 [facility] Comment on above: Performed By: #### C RP, BMP #### [facility] [address] [place] [address] Dr. Kristina Morales EGFR-AF BURMESE >60 Normal >=60 [facility] Comment on above: Performed By: #### C RP, BMP #### [facility] [address] [place] [address] Dr. Kristina Morales EGFR-NON AF BURMESE >60 Normal >=60 [facility] Comment on above: Performed By: #### C RP, BMP #### [facility] [address] [place] [address] Dr. Kristina Moralse Glucose [Mass/Vol] 118 mg/dL Critically high 74-106 T [facility] Comment on above: Performed By: #### C RP, BMP #### [facility] [address] [place] [address] Dr. Kristina Morales Potassium [Moles/Vol] 3.6 mmol/L Normal 3.5-5.1 [facility] Comment on above: Performed By: #### C RP, BMP #### [facility] [address] [place] [address] Dr. Kristina Morales Sodium [Moles/Vol] 141 mmol/L Normal 136-145 [facility] Comment on above: Performed By: #### C RP, BMP #### [facility] [address] [place] [address] Dr. Kristina Morales Urea nitrogen [Mass/Vol] 17.0 mg/dL Normal 7.0-18.0 [facility] Comment on above: Performed By: #### C RP, BMP #### [facility] [address] [place] [address] Dr. Kristina Morales Urea nitrogen/Creatinine [Mass ratio] 18.7 mg/mg Normal [facility] Comment on above: Performed By: #### C RP, BMP #### [facility] [address] [place] [address] CHEST WO IVCONon 06-01-19 [facility] CNOVon 01-25-2022 CNOV Office Visit (CNFVM) CELSO POTTS ([id number]) 1980 F TRN Date Time Provider Department 01/25/22 2:30 PM JUAN FRANCISCO HUTCHINSON During your visit today, we recorded the following information about you: Temperature Pulse Blood pressure Weight 98.6 degrees 109/minute 115/67 106.8 kg Juan Francisco Hutchinson APRN.[employer] SYSTEMS DEVELOPER 01/25/2022 4:28 PM Signed PALLIATIVE MEDICINE PROGRESS [...] treadmill. She will be meeting with a head athletic trainer/strength coach to better understand the equipment upcoming. Has had some nausea since starting doxy for acne. Responsive to Compazine. Modified ESAS (Lincoln Symptom Assessment Scale) Information Provided By: Patient [...] was identified. 01/25/2022 by Juan Francisco Hutchinson APRN.[employer] SYSTEMS DEVELOPER Urine Screen Lab Results Component Value Date UAMPH Negative 02/24/2021 UBARB2 Negative 02/24/2021 UBENZ Negative 02/24/2021 UQBUPRE <20 02/24/2021 UQNORBUP <20 02/24/2021 UCOC2 Negative 02/24/2021 UQCANN <16 02/24/2021 UOPI Negative 02/24/2021 UOXYC Negative 02/24/2021 UPCP Negative 02/24/2021 UTHC Negative 02/24/2021 UETOH <11 0 (more content not included)... Normal [facility] PAIN PANEL, UR QUANTon 01-25 2-Zjiolzdzlm-2,5-Dim ethyl-3,3-Diphenylpy rrolidine (EDDP) Confirm (U) [Mass/Vol] <6 Normal <6 [facility] Comment on above: Order Comment: Speci men Type: URINE SPECIMEN Ordering Facility: [facility] Address: [address] [place] [address] Result Comment: EDDP is a metabolite of methadone. Performed By: #### L [id number] #### [facility] CLIA [id number] [address] [place] [address] [place] 6-Monoacetylmorphine (6-BERNIE) (U) [Mass/Vol] <5 Normal <5 [facility] Comment on above: Order Comment: Speci men Type: URINE SPECIMEN Ordering Facility: [facility] Address: [address] [place], [place] [id number] Result Comment: 6-MA M (6-monoacetylmorphine, also known as 6-acetylmorphine) is a unique metabolite of heroin. Presence of 6-BERNIE indicates use of heroin. 6-BERNIE is further metabolized to morphine and absence of 6-BERNIE does not rule out the use of heroin. Performed By: #### L [id number] #### [facility] CLIA [id number] [address] [place] [address] [place] Amphetamine Confirm (U) [Mass/Vol] <5 Normal <5 [facility] Comment on above: Order Comment: Speci men Type: URINE SPECIMEN Ordering Facility: [facility] Address: [address] [address] Performed By: #### L [id number] #### [facility] CLIA [id number] [address] [place] [address] [place] Benzoylecgonine Confirm (U) [Mass/Vol] <24 Normal <24 [facility] Comment on above: Order Comment: Speci men Type: URINE SPECIMEN Ordering Facility: [facility] Address: [address] [address] Result Comment: [place] oylecgonine is a metabolite of cocaine. Performed By: #### L [id number] #### [facility] CLIA [id number] [address] [place] [address] [place] Buprenorphine (U) [Mass/Vol] <20 Normal <20 [facility] Comment on above: Order Comment: Speci men Type: URINE SPECIMEN Ordering Facility: [facility] Address: [address] [address] Performed By: #### L [id number] #### [facility] CLIA [id number] [address] [place] [address] [place] Cannabinoids Confirm (U) [Mass/Vol] <16 Normal <16 [facility] Comment on above: Order Comment: Speci men Type: URINE SPECIMEN Ordering Facility: [facility] Address: [address] Result Comment: Tetr ahydrocannabinol carboxylic acid (THCA) is a metabolite of gbgze-9-mbpkdmzjsfsattyytwjq which is the main active component of marijuana. Performed By: #### L [id number] #### [facility] CLIA [id number] [address] [place] Codeine Confirm (U) [Mass/Vol] <11 Normal <11 [facility] Comment on above: Order Comment: Speci men Type: URINE SPECIMEN Ordering Facility: [facility] Address: [address] [address] Performed By: #### L [id number] #### [facility] CLIA [id number] [address] Dihydrocodeine Confirm (U) [Mass/Vol] <5 Normal <5 [facility] Comment on above: Order Comment: Speci men Type: URINE SPECIMEN Ordering Facility: [facility] Address: [address] [address] Performed By: #### L [id number] #### [facility] CLIA [id number] [address] [place] [address] fentaNYL Confirm (U) [Mass/Vol] <6 Normal <6 [facility] Comment on above: Order Comment: Speci men Type: URINE SPECIMEN Ordering Facility: [facility] Address: [address] [place] [address] Performed By: #### L [id number] #### [facility] CLIA [id number] [address] HYDROcodone Confirm (U) [Mass/Vol] <8 Normal <8 [facility] Comment on above: Order Comment: Speci men Type: URINE SPECIMEN Ordering Facility: [facility] Address: [address] [place] [address] Result Comment: Hydr ocodone is a metabolite of dihydrocodeine. Performed By: #### L [id number] #### [facility] CLIA [id number] [address] HYDROmorphone Confirm (U) [Mass/Vol] <5 Normal <5 [facility] Comment on above: Order Comment: Speci men Type: URINE SPECIMEN Ordering Facility: [facility] Address: [address] [place] [address] Result Comment: Hydr omorphone is a metabolite of hydrocodone. Performed By: #### L [id number] #### [facility] CLIA [id number] [address] Methadone Confirm (U) [Mass/Vol] <16 Normal <16 [facility] Comment on above: Order Comment: Speci men Type: URINE SPECIMEN Ordering Facility: [facility] Address: [address] [place] [address] Performed By: #### L [id number] #### [facility] CLIA [id number] [facility] [address] Methamphetamine Confirm (U) [Mass/Vol] <8 Normal <8 [facility] Comment on above: Order Comment: Speci men Type: URINE SPECIMEN Ordering Facility: [facility] Address: [address] [place] [address] Performed By: #### L [id number] #### [facility] IA [id number] [address] [place] [address] Morphine Confirm (U) [Mass/Vol] <10 Normal <10 [facility] Comment on above: Order Comment: Speci men Type: URINE SPECIMEN Ordering Facility: [facility] Address: [address] [place] [address] Result Comment: Morp majo is a metabolite of codeine and heroin. Performed By: #### L [id number] #### [facility] IA [id number] [address] [place] [address] Norbuprenorphine (U) [Mass/Vol] <20 Normal <20 [facility] Comment on above: Order Comment: Speci men Type: URINE SPECIMEN Ordering Facility: [facility] Address: [address] [place] [address] Result Comment: Norb uprenorphine is the primary active metabolite of buprenorphine. Performed By: #### L [id number] #### [facility] CLIA [id number] [address] [place] [address] Norfentanyl Confirm (U) [Mass/Vol] <6 Normal <6 [facility] Comment on above: Order Comment: Speci men Type: URINE SPECIMEN Ordering Facility: [facility] Address: [address] [address] Result Comment: Norf entanyl is a metabolite of fentanyl. Performed By: #### L [id number] #### [facility] CLIA [id number] [address] [place] Nortramadol (U) [Mass/Vol] <20 Normal <20 [facility] Comment on above: Order Comment: Speci men Type: URINE SPECIMEN Ordering Facility: [facility] Address: [address] [address] Result Comment: Desm ethyltramadol is a metabolite of tramadol. Performed By: #### L [id number] #### [facility] CLIA [id number] [address] [place] [address] STATES [facility] NOTE,UR PAIN OCASIO Normal [facility] Comment on above: Order Comment: Speci men Type: URINE SPECIMEN Ordering Facility: [facility] Address: [address] [address] Result Comment: This test is for medical use only. This test was developed and its performance characteristics determined by [facility] [place] (-[facility]). It has not been cleared or approved by the FDA. -[facility] is regulated under CLIA as qualified to perform high-complexity testing. This test is used for clinical purposes. It should not be regarded as investigational or for research. Performed By: #### L [id number] #### [facility] CLIA [id number] [address] [place] oxyCODONE Confirm (U) [Mass/Vol] 2574 ng/mL High <10 [facility] Comment on above: Order Comment: Speci men Type: URINE SPECIMEN Ordering Facility: [facility] Address: [address] [place] [address] Result Comment: Oxyc odone is not a recognized metabolite of other opiates and its presence indicates use of an oxycodone containing drug. Oxycodone is metabolized to oxymorphone. Performed By: #### L [id number] #### [facility] CLIA [id number] [facility] [address] oxyMORphone Confirm (U) [Mass/Vol] 2296 ng/mL High <5 [facility] Comment on above: Order Comment: Speci men Type: URINE SPECIMEN Ordering Facility: [facility] Address: [address] [address] Result Comment: Oxym orphone may arise from oxymorphone containing drugs or by metabolism of oxycodone. Performed By: #### L [id number] #### [facility] CLIA [id number] [address] [place] [address] [place] traMADol Confirm (U) [Mass/Vol] <25 Normal <25 [facility] Comment on above: Order Comment: Speci men Type: URINE SPECIMEN Ordering Facility: [facility] Address: [address] [address] Performed By: #### L [id number] #### [facility] IA [id number] [address] [place] [address] [place] SPECIMEN VALIDITY, URINEon 1 03-28-2021 CHROMATE,URINE <10 Normal <50 [facility] Comment on above: Order Comment: Speci men Type: URINE SPECIMEN Ordering Facility: [facility] Address: [address] [address] Performed By: #### L [id number] #### [facility] CLIA [id number] [address] [place] [address] [place] CREATININE,URINE 78.6 mg/dL Normal 20.0-300.0 [facility] Comment on above: Order Comment: Speci men Type: URINE SPECIMEN Ordering Facility: [facility] Address: [address] [address] Performed By: #### L [id number] #### [facility] CLIA [id number] [address] [place] [address] [place] NITRITES,URINE <50 Normal <500 [facility] Comment on above: Order Comment: Speci men Type: URINE SPECIMEN Ordering Facility: [facility] Address: [address] [address] Performed By: #### L [id number] #### [facility] CLIA [id number] [address] [place] [address] [place] OXIDANTS,URINE 58 mg/L Normal <200 [facility] Comment on above: Order Comment: Speci men Type: URINE SPECIMEN Ordering Facility: [facility] Address: [address] [place] [address] Performed By: #### L [id number] #### [facility] CLIA [id number] [address] [place] [address] [place] pH (U) 5.7 [pH] Normal 4.5-8.0 [facility] Comment on above: Order Comment: Speci men Type: URINE SPECIMEN Ordering Facility: [facility] Address: [address] [place] [address] Performed By: #### L [id number] #### [facility] CLIA [id number] [address] [place] [address] [place] SPEC GRAVITY,UR 1.010 Normal 1.003-1.035 [facility] Comment on above: Order Comment: Speci men Type: URINE SPECIMEN Ordering Facility: [facility] Address: [address] [place] [address] Performed By: #### L [id number] #### [facility] CLIA [id number] [address] [place] [address] [place] SPECIMEN VALIDITY QUALITY Specimen quality results within acceptable limits Normal [facility] Comment on above: Order Comment: Speci men Type: URINE SPECIMEN Ordering Facility: [facility] Address: [address] [place] [address] Performed By: #### L [id number] #### [facility] CLIA [id number] [address] [place] [address] [place] CBC W Auto Differential pane l (Bld)on 11-13-2021 Abs Immature Gran 0.03 k/uL <0.10 k/uL [facility] Basophils (Bld) [#/Vol] 0.03 10*3/uL <0.11 k/uL [facility] Basophils/100 WBC (Bld) 0.4 % [facility] Differential cell count method Nom (Bld) Auto [facility] Eosinophils (Bld) [#/Vol] 0.34 10*3/uL <0.46 k/uL [facility] Eosinophils/100 WBC (Bld) 4.8 % [facility] Erythrocyte distribution width (RBC) [Ratio] 13.8 % 11.5 - 15.0 % [facility] Hematocrit (Bld) [Volume fraction] 44.4 % 36.0 - 46.0 % [facility] Hemoglobin (Bld) [Mass/Vol] 14.8 g/dL 11.5 - 15.5 g/dL [facility] Immature Gran % 0.4 % [facility] Lymphocytes (Bld) [#/Vol] 1.62 10*3/uL 1.00 - 4.00 k/uL [facility] Lymphocytes/100 WBC (Bld) 23.0 % [facility] MCH (RBC) [Entitic mass] 31.6 pg 26.0 - 34.0 pg [facility] MCHC (RBC) [Mass/Vol] 33.3 g/dL 30.5 - 36.0 g/dL [facility] MCV (RBC) [Entitic vol] 94.7 fL 80.0 - 100.0 fL [facility] Monocytes (Bld) [#/Vol] 0.51 10*3/uL <0.87 k/uL [facility] Monocytes/100 WBC (Bld) 7.3 % [facility] Neutrophils (Bld) [#/Vol] 4.50 10*3/uL 1.45 - 7.50 k/uL [facility] Neutrophils/100 WBC (Bld) 64.1 % [facility] Nucleated RBC (Bld) [#/Vol] <0.01 k/uL [facility] Nucleated RBC/100 WBC (Bld) [Ratio] 0.0 /100 WBC [facility] Platelet mean volume (Bld) [Entitic vol] 9.6 fL 9.0 - 12.7 fL [facility] Platelets (Bld) [#/Vol] 310 10*3/uL 150 - 400 k/uL [facility] RBC (Bld) [#/Vol] 4.69 10*6/uL 3.90 - 5.2 0 m/uL [facility] WBC (Bld) [#/Vol] 7.03 10*3/uL 3.70 - 11. 00 k/uL [facility] CNOVon 10-26-2021 CNOV Office Visit (CNFVM) CELSO POTTS Junior ([id number]) 1980 F TRN Date Time Provider Department 10/26/21 3:00 PM JUAN FRANCISCO HUTCHINSON [facility] During your visit today, we recorded the following information about you: Temperature Pulse Blood pressure Weight 97.7 degrees 100/minute 117/88 103 kg Juan Francisco Hutchinson APRN.CNP 10/26/2021 2:43 PM Signed PALLIATIVE MEDICINE PROGRESS [...] upcoming PET scan will show. Modified ESAS (Lincoln Symptom Assessment Scale) Information Provided By: Patient [...] Onco (more content not included)... Normal [facility] WOUND CULTUREon 07-28-2021 Bacteria identified Aer cx Nom (Unsp spec) Final report Normal [facility] Comment on above: Performed By: #### C XWND #### [facility] [address] [place], [place] [address] Dr. Kristina Morales Result 1 Mixed skin doni Normal [facility] Comment on above: Performed By: #### C XWND #### [facility] [address] [place], [place] [address] Dr. Kristina Morales Initial Visit (Otolaryngolog y)on [...] Touchworks Culture, Urineon 04-17-2021 Culture, Urine ORDER#: [id number] ORDERED BY: SHEILA LIN SOURCE: Urine Voided COLLECTED: 04/17/21 18:42 ANTIBIOTICS AT CECILY.: RECEIVED : 04/17/21 19:23 Culture, Urine FINAL 04/19/21 12:36 Cult,Urine: NO SIGNIFICANT GROWTH Performed at [address], [place] [id number] ([phone] Normal [facility] Comment on above: Performed By: #### C SHIRA #### [facility] [address] [place] [address] Urinalysis, reflex to micros copicon 04-17-2021 Bilirubin Ql (U) Negative Normal Negative [facility] Comment on above: Performed By: #### U A #### [facility] [address] [place] [address] Clarity (U) Clear Normal Clear [facility] Comment on above: Performed By: #### U A #### [facility] [address] [place] [address] Color (U) Yellow Normal Straw/[place] [facility] Comment on above: Performed By: #### U A #### [facility] [address] [place] [address] Glucose Ql (U) Negative Normal Negative [facility] Comment on above: Performed By: #### U A #### [facility] [address] [place] [address] Hemoglobin Ql (U) Negative Normal Negative [facility] Comment on above: Performed By: #### U A #### [facility] [address] [place] [address] Ketones Ql (U) Negative Normal Negative [facility] Comment on above: Performed By: #### U A #### [facility] [address] [place] [address] Leukocyte esterase Test strip Ql (U) TRACE Abnormal Negative [facility] Comment on above: Performed By: #### U A #### [facility] [address] [place] [address] Nitrite Ql (U) Negative Normal Negative [facility] Comment on above: Performed By: #### U A #### [facility] [address] [place] [address] pH (U) 6.0 [pH] Normal 5.0-9.0 [facility] Comment on above: Performed By: #### U A #### [facility] [address] [place] [address] Protein Ql (U) Negative Normal Negative [facility] Comment on above: Performed By: #### U A #### [facility] [address] [place] [address] Specific gravity (U) [Rel density] 1.006 Normal 1.005-1.03 [facility] Comment on above: Performed By: #### U A #### [facility] [facility] [address] [place] [address] Urobilinogen Qn (U) 0.2 {Nuvia'U}/dL Normal < 2.0 [facility] Comment on above: Performed By: #### U A #### [facility] [address] [place] [address] Urine Microscopicon 04-17-19 22 Bacteria LM.HPF (Urine sed) [#/Area] Negative Normal Negative [facility] Comment on above: Performed By: #### U RICARDO #### [facility] [address] [place] [address] Urine Epithelial Cells Auto 0-2 Normal 0-5 [facility] Comment on above: Performed By: #### U RICARDO #### [facility] [address] [place] [address] Urine Hyaline Casts Auto 0-1 Normal 0-5 [facility] Comment on above: Performed By: #### U RICARDO #### [facility] [address] [place] [address] Urine RBC Auto 0-2 Normal 0-5 [facility] Comment on above: Performed By: #### U RICARDO #### [facility] [address] [place] [address] Urine WBC Auto 0-2 Normal 0-5 [facility] Comment on above: Performed By: #### U RICARDO #### [facility] [address] [place] [address] COVID Quick Testingon 2020 Result Negative [employer] Other KNEE CMPLT, 4 OR MORE VIEWSo n 08-24-2019 KNEE CMPLT, 4 OR MORE VIEWS Patient Name: CELSO POTTS STUDY: KNEE; COMPLT, 4 OR MORE VIEWS; Left; 08/24/2019 3:23 pm INDICATION: Pain. ACCESSION NUMBER(S): [id number] ORDERING CLINICIAN: RENETTA GUERRERO FINDINGS: Left knee x-rays four views AP, lateral, tunnel and sunrise view: No acute fractures, no dislocation. No significant degenerative changes. Electronically signed by: RENETTA GUERRERO MD Normal [facility] Free T4on 03-02-2019 Free T4 [Mass/Vol] 1.2 ng/dL Normal 0.9-1.7 [facility] Comment on above: Performed By: #### F T4, TSH #### [facility] Routine Lab [address] [place], [place] [address] TSHon 03-02-2019 TSH Qn 5.290 uU/mL High 0.270-4.200 [facility] Comment on above: Performed By: #### F T4, TSH #### [facility] Routine Lab [address] [place], [place] [address] Vital Signs Date Time Vital Sign Value Performing Clinician Facility 2023 10:07-0400 Body temperature 97.9 [degF] Juan Francisco Hutchinson APRN.[employer]AD SYSTEMS DEVELOPER Work Phone: [facility] 2023 10:07-0400 Diastolic blood pressure 64 mm[Hg] Juan Francisco Hutchinson APRN.[employer]AD SYSTEMS DEVELOPER Work Phone: [facility] 2023 10:07-0400 Heart rate 93 /min Juan Francisco Hutchinson APRN.[employer]AD SYSTEMS DEVELOPER Work Phone: [facility] 2023 10:07-0400 SaO2% (BldA) [Mass fraction] 97 % Juan Francisco Hutchinson APRN.[employer] SYSTEMS DEVELOPER Work Phone: [facility] 2023 10:07-0400 Systolic blood pressure 117 mm[Hg] Juan Francisco Hutchinson APRN.[employer]AD SYSTEMS DEVELOPER Work Phone: [facility] 06-28-2023 11:07-0400 Diastolic blood pressure 84 mm[Hg] Summer Carver MD Work Phone: [facility] 06-28-2023 11:07-0400 Heart rate 93 /min Summer Carver MD Work Phone: [facility] 06-28-2023 11:07-0400 SaO2% (BldA) [Mass fraction] 100 % Summer Carver MD Work Phone: [facility] Comment on above: ra 06-28-2023 11:07-0400 Systolic blood pressure 118 mm[Hg] Summer Carver MD Work Phone: [facility] 06-13-2023 11:03-0400 Body height 180 cm Radha Ruano AWS SOLUTION ARCHITECT.[employer] SYSTEMS DEVELOPER Work Phone: [facility] 06-13-2023 11:03-0400 Body temperature 98.29 [degF] Radha Ruano AWS SOLUTION ARCHITECT.[employer] SYSTEMS DEVELOPER Work Phone: [facility] 06-13-2023 11:03-0400 Diastolic blood pressure 69 mm[Hg] Radha Ruano AWS SOLUTION ARCHITECT.[employer] SYSTEMS DEVELOPER Work Phone: [facility] 06-13-2023 11:03-0400 Heart rate 99 /min Radha Ruano AWS SOLUTION ARCHITECT.[employer] SYSTEMS DEVELOPER Work Phone: [facility] 06-13-2023 11:03-0400 SaO2% (BldA) [Mass fraction] 98 % Radha Ruano AWS SOLUTION ARCHITECT.[employer] SYSTEMS DEVELOPER Work Phone: [facility] Comment on above: RA 06-13-2023 11:03-0400 Systolic blood pressure 114 mm[Hg] Radha Ruano AWS SOLUTION ARCHITECT.[employer] SYSTEMS DEVELOPER Work Phone: [facility] 06-10-2023 10:08-0400 Body temperature 97 [degF] Alexsander Ledezma MD Work Phone: [facility] 06-10-2023 10:08-0400 Diastolic blood pressure 72 mm[Hg] Alexsander Ledezma MD Work Phone: [facility] 06-10-2023 10:08-0400 Heart rate 94 /min Alexsander Ledezma MD Work Phone: [facility] 06-10-2023 10:08-0400 Respiratory rate 18 /min Alexsander Ledezma MD Work Phone: [facility] 06-10-2023 10:08-0400 SaO2% (BldA) [Mass fraction] 98 % Alexsander Ledezma MD Work Phone: [facility] 06-10-2023 10:08-0400 Systolic blood pressure 111 mm[Hg] Alexsander Ledezma MD Work Phone: [facility] 05-31-2023 14:38-0400 Body temperature 96.91 [degF] Zoila Aguirre AWS SOLUTION ARCHITECT.[employer] SYSTEMS DEVELOPER Work Phone: [facility] 05-31-2023 14:38-0400 Diastolic blood pressure 83 mm[Hg] Zoila Aguirre AWS SOLUTION ARCHITECT.[employer] SYSTEMS DEVELOPER Work Phone: [facility] 05-31-2023 14:38-0400 Heart rate 109 /min Zoila Aguirre AWS SOLUTION ARCHITECT.LE[employer] SYSTEMS DEVELOPER Work Phone: [facility] 05-31-2023 14:38-0400 Respiratory rate 16 /min Zoila Aguirre AWS SOLUTION ARCHITECT.[employer] SYSTEMS DEVELOPER Work Phone: [facility] 05-31-2023 14:38-0400 SaO2% (BldA) [Mass fraction] 97 % Zoila Aguirre AWS SOLUTION ARCHITECT.[employer] SYSTEMS DEVELOPER Work Phone: [facility] 05-31-2023 14:38-0400 Systolic blood pressure 120 mm[Hg] Zoila Aguirre AWS SOLUTION ARCHITECT.LE[employer] SYSTEMS DEVELOPER Work Phone: [facility] 05-22-2023 07:50-0400 Body temperature 97.11 [degF] Loy Merino PA-C Work Phone: [facility] 04-19-2023 08:35-0500 Body height 182.9 cm Radha Pelfrey AWS SOLUTION ARCHITECT.LE[employer] SYSTEMS DEVELOPER Work Phone: [facility] 04-19-2023 08:35-0500 Body weight 103.9 kg Radha Pelfrey AWS SOLUTION ARCHITECT.LE[employer] SYSTEMS DEVELOPER Work Phone: [facility] 04-19-2023 08:35-0500 Diastolic blood pressure 76 mm[Hg] Radha Pelfrey AWS SOLUTION ARCHITECT.LE[employer] SYSTEMS DEVELOPER Work Phone: [facility] 04-19-2023 08:35-0500 Heart rate 94 /min Radha Pelfrey AWS SOLUTION ARCHITECT.LE[employer] SYSTEMS DEVELOPER Work Phone: [facility] 04-19-2023 08:35-0500 SaO2% (BldA) [Mass fraction] 98 % Radha Pelfrey AWS SOLUTION ARCHITECT.LE[employer] SYSTEMS DEVELOPER Work Phone: [facility] 04-19-2023 08:35-0500 Systolic blood pressure 112 mm[Hg] Radha Pelfrey AWS SOLUTION ARCHITECT.[employer] SYSTEMS DEVELOPER Work Phone: [facility] 04-16-2023 10:41-0500 Body height 180 cm Alexsander Ledezma MD Work Phone: [facility] 04-16-2023 10:41-0500 Body temperature 97.39 [degF] Alexsander Ledezma MD Work Phone: [facility] 04-16-2023 10:41-0500 Body weight 102 kg Alexsander Ledezma MD Work Phone: [facility] 04-16-2023 10:41-0500 Diastolic blood pressure 82 mm[Hg] Alexsander Ledezma MD Work Phone: [facility] 04-16-2023 10:41-0500 Heart rate 89 /min Alexsander Ledezma MD Work Phone: [facility] 04-16-2023 10:41-0500 Respiratory rate 18 /min Alexsander Ledezma MD Work Phone: [facility] 04-16-2023 10:41-0500 SaO2% (BldA) [Mass fraction] 95 % Alexsander Ledezma MD Work Phone: [facility] 04-16-2023 10:41-0500 Systolic blood pressure 117 mm[Hg] Alexsander Ledezma MD Work Phone: [facility] 03-28-2023 14:19-0500 Body weight 108.86 kg Kylie Nunes AWS SOLUTION ARCHITECT.LE[employer] SYSTEMS DEVELOPER Work Phone: [facility] 03-28-2023 14:19-0500 Diastolic blood pressure 81 mm[Hg] Kylie Nunes AWS SOLUTION ARCHITECT.[employer] SYSTEMS DEVELOPER Work Phone: [facility] 03-28-2023 14:19-0500 Heart rate 99 /min Kylie Nunes AWS SOLUTION ARCHITECT.LE[employer] SYSTEMS DEVELOPER Work Phone: [facility] 03-28-2023 14:19-0500 SaO2% (BldA) [Mass fraction] 97 % Kylie Nunes AWS SOLUTION ARCHITECT.[employer] SYSTEMS DEVELOPER Work Phone: [facility] 03-28-2023 14:19-0500 Systolic blood pressure 114 mm[Hg] Kylie Nunes AWS SOLUTION ARCHITECT.[employer] SYSTEMS DEVELOPER Work Phone: [facility] 01-29-2023 16:45-0500 Body height 182.88 cm Keke Bright Other [employer] Other 01-29-2023 16:45-0500 Body mass index (BMI) [Ratio] 30.92 kg/m2 Keke Kaila Other [employer] Other 01-29-2023 16:45-0500 Body temperature 98 [degF] Keke Kaila Other [employer] Other 01-29-2023 16:45-0500 Body weight 103.42 kg Keke Kaila Other [employer] Other 01-29-2023 16:45-0500 Diastolic blood pressure 86 mm[Hg] Keke Kaila Other [employer] Other 01-29-2023 16:45-0500 Respiratory rate 18 /min Keke Kaila Other [employer] Other 01-29-2023 16:45-0500 SaO2% (BldA) [Mass fraction] 98 % Keke Kaila Other [employer] Other 01-29-2023 16:45-0500 Systolic blood pressure 133 mm[Hg] Keke Kaila Other [employer] Other 01-01-2023 10:53-0500 Body height 180 cm Alexsander Ledezma MD Work Phone: [facility] 01-01-2023 10:53-0500 Body temperature 97 [degF] Alexsander Ledezma MD Work Phone: [facility] 01-01-2023 10:53-0500 Body weight 102.6 kg Alexsander Ledezma MD Work Phone: [facility] 01-01-2023 10:53-0500 Diastolic blood pressure 89 mm[Hg] Alexsander Ledezma MD Work Phone: [facility] 01-01-2023 10:53-0500 Heart rate 104 /min Alexsander Ledezma MD Work Phone: [facility] 01-01-2023 10:53-0500 Respiratory rate 16 /min Alexsander Ledezma MD Work Phone: [facility] 01-01-2023 10:53-0500 SaO2% (BldA) [Mass fraction] 97 % Alexsander Ledezma MD Work Phone: [facility] 01-01-2023 10:53-0500 Systolic blood pressure 133 mm[Hg] Alexsander Ledezma MD Work Phone: [facility] 10-18-2022 11:01-0400 Body temperature 98.2 [degF] Juan Francisco Hutchinson AWS SOLUTION ARCHITECT.LE[employer] SYSTEMS DEVELOPER Work Phone: [facility] 10-18-2022 11:01-0400 Body weight 102.01 kg Juan Francisco Hutchinson AWS SOLUTION ARCHITECT.LE[employer] SYSTEMS DEVELOPER Work Phone: [facility] 10-18-2022 11:01-0400 Diastolic blood pressure 81 mm[Hg] Juan Francisco Hutchinson AWS SOLUTION ARCHITECT.[employer] SYSTEMS DEVELOPER Work Phone: [facility] 10-18-2022 11:01-0400 Heart rate 96 /min Juan Francisco Hutchinson AWS SOLUTION ARCHITECT.LE[employer] SYSTEMS DEVELOPER Work Phone: [facility] 10-18-2022 11:01-0400 SaO2% (BldA) [Mass fraction] 96 % Juan Francisco Hutchinson AWS SOLUTION ARCHITECT.LE[employer] SYSTEMS DEVELOPER Work Phone: [facility] 10-18-2022 11:01-0400 Systolic blood pressure 116 mm[Hg] Juan Francisco Hutchinson AWS SOLUTION ARCHITECT.LE[employer] SYSTEMS DEVELOPER Work Phone: [facility] 09-13-2022 10:06-0400 Body weight 103.87 kg Summer Carver MD Work Phone: [facility] 09-13-2022 10:06-0400 Diastolic blood pressure 87 mm[Hg] Summer Carver MD Work Phone: [facility] 09-13-2022 10:06-0400 Heart rate 95 /min Summer Carver MD Work Phone: [facility] 09-13-2022 10:06-0400 Respiratory rate 16 /min Summer Carver MD Work Phone: [facility] 09-13-2022 10:06-0400 SaO2% (BldA) [Mass fraction] 96 % Summer Carver MD Work Phone: [facility] 09-13-2022 10:06-0400 Systolic blood pressure 121 mm[Hg] Summer Carver MD Work Phone: [facility] 08-22-2022 14:33-0400 Body temperature 98.6 [degF] Cyn Ramires MD Work Phone: [facility] 08-22-2022 14:33-0400 Diastolic blood pressure 74 mm[Hg] Cyn Ramires MD Work Phone: [facility] 08-22-2022 14:33-0400 Heart rate 100 /min Cyn Ramires MD Work Phone: [facility] 08-22-2022 14:33-0400 SaO2% (BldA) [Mass fraction] 94 % Cyn Ramires MD Work Phone: [facility] 08-22-2022 14:33-0400 Systolic blood pressure 105 mm[Hg] Cyn Ramires MD Work Phone: [facility] 08-01-2022 09:56-0400 Body height 180.3 cm Ella Rocio AWS SOLUTION ARCHITECT.LEAD SYSTEMS DEVELOPER Work Phone: [facility] 08-01-2022 09:56-0400 Body temperature 97 [degF] Ella Rocio AWS SOLUTION ARCHITECT.[employer] SYSTEMS DEVELOPER Work Phone: [facility] 08-01-2022 09:56-0400 Diastolic blood pressure 80 mm[Hg] Ella Rocio AWS SOLUTION ARCHITECT.[employer] SYSTEMS DEVELOPER Work Phone: [facility] 08-01-2022 09:56-0400 Heart rate 100 /min Ella Rocio AWS SOLUTION ARCHITECT.[employer] SYSTEMS DEVELOPER Work Phone: [facility] 08-01-2022 09:56-0400 SaO2% (BldA) [Mass fraction] 95 % Ella Chan AWS SOLUTION ARCHITECT.[employer] SYSTEMS DEVELOPER Work Phone: [facility] 08-01-2022 09:56-0400 Systolic blood pressure 115 mm[Hg] Ella Chan AWS SOLUTION ARCHITECT.[employer] SYSTEMS DEVELOPER Work Phone: [facility] 07-19-2022 10:32-0400 Body weight 105.33 kg Juan Francisco Hutchinson AWS SOLUTION ARCHITECT.[employer] SYSTEMS DEVELOPER Work Phone: [facility] 07-19-2022 10:32-0400 Diastolic blood pressure 84 mm[Hg] Juan Francisco Hutchinson AWS SOLUTION ARCHITECT.[employer] SYSTEMS DEVELOPER Work Phone: [facility] 07-19-2022 10:32-0400 Heart rate 104 /min Juan Francisco Hutchinson AWS SOLUTION ARCHITECT.[employer] SYSTEMS DEVELOPER Work Phone: [facility] 07-19-2022 10:32-0400 SaO2% (BldA) [Mass fraction] 94 % Juan Francisco Hutchinson AWS SOLUTION ARCHITECT.LE[employer] SYSTEMS DEVELOPER Work Phone: [facility] 07-19-2022 10:32-0400 Systolic blood pressure 124 mm[Hg] Juan Francisco Hutchinson AWS SOLUTION ARCHITECT.[employer] SYSTEMS DEVELOPER Work Phone: [facility] 07-18-2022 11:06-0400 Body height 182.9 cm Cyn Ramires MD Work Phone: [facility] 07-18-2022 11:06-0400 Body temperature 98.2 [degF] Cyn Ramires MD Work Phone: [facility] 07-18-2022 11:06-0400 Body weight 106.41 kg Cyn Ramires MD Work Phone: [facility] 07-18-2022 11:06-0400 Diastolic blood pressure 86 mm[Hg] Cyn Ramires MD Work Phone: [facility] 07-18-2022 11:06-0400 Heart rate 103 /min Cyn Ramires MD Work Phone: [facility] 07-18-2022 11:06-0400 Respiratory rate 18 /min Cyn Ramires MD Work Phone: [facility] 07-18-2022 11:06-0400 SaO2% (BldA) [Mass fraction] 96 % Cyn Ramires MD Work Phone: [facility] 07-18-2022 11:06-0400 Systolic blood pressure 124 mm[Hg] Cyn Ramires MD Work Phone: [facility] 05-01-2022 09:51-0400 Body temperature 98.01 [degF] Treatment Rej Work Phone: [facility] 05-01-2022 09:51-0400 Diastolic blood pressure 87 mm[Hg] Treatment Rej Work Phone: [facility] 05-01-2022 09:51-0400 Heart rate 106 /min Treatment Rej Work Phone: [facility] 05-01-2022 09:51-0400 Respiratory rate 18 /min Treatment Rej Work Phone: [facility] 05-01-2022 09:51-0400 Systolic blood pressure 123 mm[Hg] Treatment Rej Work Phone: [facility] 04-23-2022 09:49-0500 Body weight 106.91 kg Juan Francisco Hutchinson APRN.[employer] SYSTEMS DEVELOPER Work Phone: [facility] 04-23-2022 09:49-0500 Diastolic blood pressure 77 mm[Hg] Juan Francisco Hutchinson APRN.[employer] SYSTEMS DEVELOPER Work Phone: [facility] 04-23-2022 09:49-0500 Heart rate 99 /min Juan Francisco Hutchinson APRN.[employer] SYSTEMS DEVELOPER Work Phone: [facility] 04-23-2022 09:49-0500 Systolic blood pressure 113 mm[Hg] Juan Francisco Hutchinson APRN.[employer] SYSTEMS DEVELOPER Work Phone: [facility] 03-07-2022 11:37-0500 Body temperature 98.4 [degF] Cyn Ramires MD Work Phone: [facility] 03-07-2022 11:37-0500 Diastolic blood pressure 70 mm[Hg] Cyn Ramires MD Work Phone: [facility] 03-07-2022 11:37-0500 Heart rate 106 /min Cyn Ramires MD Work Phone: [facility] 03-07-2022 11:37-0500 SaO2% (BldA) [Mass fraction] 98 % Cyn Ramires MD Work Phone: [facility] 03-07-2022 11:37-0500 Systolic blood pressure 113 mm[Hg] Cyn Ramires MD Work Phone: [facility] 02-14-2022 12:23-0500 Body temperature 96.8 [degF] Treatment Rej Work Phone: [facility] 02-14-2022 12:23-0500 Diastolic blood pressure 89 mm[Hg] Treatment Rej Work Phone: [facility] 02-14-2022 12:23-0500 Heart rate 102 /min Treatment Rej Work Phone: [facility] 02-14-2022 12:23-0500 Systolic blood pressure 134 mm[Hg] Treatment Rej Work Phone: [facility] 01-25-2022 14:37-0500 Body temperature 98.6 [degF] Juan Francisco Hutchinson APRN.[employer] SYSTEMS DEVELOPER Work Phone: [facility] 01-25-2022 14:37-0500 Body weight 106.82 kg Juan Francisco Hutchinson APRN.[employer] SYSTEMS DEVELOPER Work Phone: [facility] 01-25-2022 14:37-0500 Diastolic blood pressure 67 mm[Hg] Juan Francisco Hutchinson APRN.[employer] SYSTEMS DEVELOPER Work Phone: [facility] 01-25-2022 14:37-0500 Heart rate 109 /min Juan Francisco Hutchinson APRN.[employer] SYSTEMS DEVELOPER Work Phone: [facility] 01-25-2022 14:37-0500 SaO2% (BldA) [Mass fraction] 96 % Juan Francisco Hutchinson APRN.[employer] SYSTEMS DEVELOPER Work Phone: [facility] 01-25-2022 14:37-0500 Systolic blood pressure 115 mm[Hg] Juan Francisco Hutchinson APRN.[employer] SYSTEMS DEVELOPER Work Phone: [facility] 01-18-2022 10:30-0500 Body temperature 96.91 [degF] Treatment Rej Work Phone: [facility] 01-18-2022 10:30-0500 Diastolic blood pressure 86 mm[Hg] Treatment Rej Work Phone: [facility] 01-18-2022 10:30-0500 Heart rate 108 /min Treatment Rej Work Phone: [facility] 01-18-2022 10:30-0500 Systolic blood pressure 125 mm[Hg] Treatment Rej Work Phone: [facility] 12-27-2021 09:25-0500 Body temperature 97.5 [degF] Sylvia Mancilla AWS SOLUTION ARCHITECT.[employer] SYSTEMS DEVELOPER Work Phone: [facility] 12-27-2021 09:25-0500 Body weight 105.01 kg Sylvia Mancilla APRN.[employer] SYSTEMS DEVELOPER Work Phone: [facility] 12-27-2021 09:25-0500 Diastolic blood pressure 74 mm[Hg] Sylvia Mancilla APRN.[employer] SYSTEMS DEVELOPER Work Phone: [facility] 12-27-2021 09:25-0500 Heart rate 103 /min Sylvia Mancilla APRN.[employer] SYSTEMS DEVELOPER Work Phone: [facility] 12-27-2021 09:25-0500 SaO2% (BldA) [Mass fraction] 98 % Sylvia Mancilla APRN.[employer] SYSTEMS DEVELOPER Work Phone: [facility] 12-27-2021 09:25-0500 Systolic blood pressure 116 mm[Hg] Sylvia Mancilla APRN.[employer] SYSTEMS DEVELOPER Work Phone: [facility] 12-06-2021 13:34-0400 Body temperature 97.11 [degF] Treatment Rej Work Phone: [facility] 12-06-2021 13:34-0400 Diastolic blood pressure 88 mm[Hg] Treatment Rej Work Phone: [facility] 12-06-2021 13:34-0400 Heart rate 92 /min Treatment Rej Work Phone: [facility] 12-06-2021 13:34-0400 Respiratory rate 18 /min Treatment Rej Work Phone: [facility] 12-06-2021 13:34-0400 Systolic blood pressure 199 mm[Hg] Treatment Rej Work Phone: [facility] 11-15-2021 13:08-0400 Body height 181 cm Cyn Ramires MD Work Phone: [facility] 11-15-2021 13:08-0400 Body temperature 98.71 [degF] Cyn Ramires MD Work Phone: [facility] 11-15-2021 13:08-0400 Body weight 102.78 kg Cyn Ramires MD Work Phone: [facility] 11-15-2021 13:08-0400 Diastolic blood pressure 77 mm[Hg] Cyn Ramires MD Work Phone: [facility] 11-15-2021 13:08-0400 Heart rate 100 /min Cyn Ramires MD Work Phone: [facility] 11-15-2021 13:08-0400 SaO2% (BldA) [Mass fraction] 98 % Cyn Ramires MD Work Phone: [facility] 11-15-2021 13:08-0400 Systolic blood pressure 118 mm[Hg] Cyn Ramires MD Work Phone: [facility] 10-26-2021 13:20-0400 Body temperature 97.7 [degF] Juan Francisco Hutchinson APRN.[employer] SYSTEMS DEVELOPER Work Phone: [facility] 10-26-2021 13:20-0400 Body weight 102.97 kg Juan Francisco Hutchinson APRN.CNP Work Phone: [facility] 10-26-2021 13:20-0400 Diastolic blood pressure 88 mm[Hg] Juan Francisco Hutchinson APRN.[employer] SYSTEMS DEVELOPER Work Phone: [facility] 10-26-2021 13:20-0400 Heart rate 100 /min Juan Francisco Hutchinson APRN.LE[employer] SYSTEMS DEVELOPER Work Phone: [facility] 10-26-2021 13:20-0400 SaO2% (BldA) [Mass fraction] 97 % Juan Francisco Hutchinson APRN.[employer] SYSTEMS DEVELOPER Work Phone: [facility] 10-26-2021 13:20-0400 Systolic blood pressure 117 mm[Hg] Juan Francisco Hutchinson APRN.[employer] SYSTEMS DEVELOPER Work Phone: [facility] 10-26-2021 11:28-0400 Body temperature 97.59 [degF] Treatment Rej Work Phone: [facility] 10-26-2021 11:28-0400 Diastolic blood pressure 82 mm[Hg] Treatment Rej Work Phone: [facility] 10-26-2021 11:28-0400 Heart rate 108 /min Treatment Rej Work Phone: [facility] 10-26-2021 11:28-0400 Systolic blood pressure 133 mm[Hg] Treatment Rej Work Phone: [facility] 10-25-2021 10:01-0400 Body temperature 98.2 [degF] Sylvia Mancilla APRN.[employer] SYSTEMS DEVELOPER Work Phone: [facility] 10-25-2021 10:01-0400 Body weight 102.78 kg Sylvia Mancilla APRN.[employer] SYSTEMS DEVELOPER Work Phone: [facility] 10-25-2021 10:01-0400 Diastolic blood pressure 87 mm[Hg] Sylvia Mancilla APRN.[employer] SYSTEMS DEVELOPER Work Phone: [facility] 10-25-2021 10:01-0400 Heart rate 102 /min Sylvia Mancilla APRN.[employer] SYSTEMS DEVELOPER Work Phone: [facility] 10-25-2021 10:01-0400 SaO2% (BldA) [Mass fraction] 97 % Sylvia Mancilla APRN.[employer] SYSTEMS DEVELOPER Work Phone: [facility] 10-25-2021 10:01-0400 Systolic blood pressure 112 mm[Hg] Sylvia Charo HENLEY.[employer] SYSTEMS DEVELOPER Work Phone: [facility] 09-06-2021 12:40-0400 Body temperature 97.7 [degF] Treatment Rej Work Phone: [facility] 09-06-2021 12:40-0400 Body weight 101.88 kg Treatment Rej Work Phone: [facility] 09-06-2021 12:40-0400 Diastolic blood pressure 73 mm[Hg] Treatment Rej Work Phone: [facility] 09-06-2021 12:40-0400 Heart rate 109 /min Treatment Rej Work Phone: [facility] 09-06-2021 12:40-0400 Systolic blood pressure 111 mm[Hg] Treatment Rej Work Phone: [facility] 07-26-2021 11:03-0400 Body temperature 97.3 [degF] Treatment Rej Work Phone: [facility] 07-26-2021 11:03-0400 Diastolic blood pressure 83 mm[Hg] Treatment Rej Work Phone: [facility] 07-26-2021 11:03-0400 Heart rate 99 /min Treatment Rej Work Phone: [facility] 07-26-2021 11:03-0400 Respiratory rate 18 /min Treatment Rej Work Phone: [facility] 07-26-2021 11:03-0400 Systolic blood pressure 126 mm[Hg] Treatment Rej Work Phone: [facility] 07-05-2021 08:31-0400 Body temperature 98.1 [degF] Treatment Rej Work Phone: [facility] 07-05-2021 08:31-0400 Diastolic blood pressure 87 mm[Hg] Treatment Rej Work Phone: [facility] 07-05-2021 08:31-0400 Heart rate 103 /min Treatment Rej Work Phone: [facility] 07-05-2021 08:31-0400 Respiratory rate 18 /min Treatment Rej Work Phone: [facility] 07-05-2021 08:31-0400 Systolic blood pressure 121 mm[Hg] Treatment Rej Work Phone: [facility] 06-14-2021 08:25-0400 Body height 181 cm Cyn Ramires MD Work Phone: [facility] 06-14-2021 08:25-0400 Body temperature 98.01 [degF] Cyn Ramires MD Work Phone: [facility] 06-14-2021 08:25-0400 Diastolic blood pressure 74 mm[Hg] Cyn Ramires MD Work Phone: [facility] [facility] 06-14-2021 08:25-0400 Heart rate 90 /min Cny Ramires MD Work Phone: [facility] 06-14-2021 08:25-0400 Systolic blood pressure 108 mm[Hg] Cyn Ramires MD Work Phone: [facility] 05-17-2021 12:31-0400 Body temperature 97.2 [degF] Treatment Rej Work Phone: [facility] 05-17-2021 12:31-0400 Diastolic blood pressure 82 mm[Hg] Treatment Rej Work Phone: [facility] 05-17-2021 12:31-0400 Heart rate 94 /min Treatment Rej Work Phone: [facility] 05-17-2021 12:31-0400 SaO2% (BldA) [Mass fraction] 97 % Treatment Rej Work Phone: [facility] 05-17-2021 12:31-0400 Systolic blood pressure 124 mm[Hg] Treatment Rej Work Phone: [facility] 05-17-2021 11:09-0400 Body temperature 98.01 [degF] Juan Francisco Hutchinson APRN.LEAD SYSTEMS DEVELOPER Work Phone: [facility] 05-17-2021 11:09-0400 Diastolic blood pressure 72 mm[Hg] Juan Francisco Hutchinson APRN.LEAD SYSTEMS DEVELOPER Work Phone: [facility] 05-17-2021 11:09-0400 Heart rate 88 /min Juan Francisco Hutchinson AWS SOLUTION ARCHITECT.LEAD SYSTEMS DEVELOPER Work Phone: [facility] 05-17-2021 11:09-0400 SaO2% (BldA) [Mass fraction] 98 % Juan Francisco Hutchinson AWS SOLUTION ARCHITECT.LEAD SYSTEMS DEVELOPER Work Phone: [facility] 05-17-2021 11:09-0400 Systolic blood pressure 120 mm[Hg] Juan Francisco Hutchinson AWS SOLUTION ARCHITECT.LEAD SYSTEMS DEVELOPER Work Phone: [facility] 02-02-2021 10:15-0500 Body height 182.88 cm Kylie Alex Other [employer] Other 02-02-2021 10:15-0500 Body temperature 97.4 [degF] Kylie Alex Other [employer] Other 02-02-2021 10:15-0500 Respiratory rate 18 /min Kylie Alex Other [employer] Other 02-02-2021 10:15-0500 SaO2% (BldA) [Mass fraction] 92 % Kylie Alex Other [employer] Other Encounters Encounter Date Encounter Type Care Provider Facility Start: 07-30-2023 Orders Only Benjamin Hansen PA-C Work Phone: Appointment Center Comment on above: Pain (Primary Dx) Start: 07-19-2023 End: 07-19-2023 ambulatory LOY MERINO Facility:[facility] Start: 07-19-2023 End: 07-19-2023 Subsequent hospital visit by physician [facility] ([facility]) Radiology Comment on above: Dysphagia, unspecifi ed type [R13.10] Start: 2023 End: 2023 ambulatory Juan Francisco Hutchinson APRN.LEAD SYSTEMS DEVELOPER Work Phone: Palliative Medicine Comment on above: Memory Start: 2023 End: 2023 Patient encounter procedure Juan Francisco Hutchinson APRN.LEAD SYSTEMS DEVELOPER Work Phone: Palliative Medicine Comment on above: Encounter for pallia tive care (Primary Dx); Muscle cramps; Nodular sclerosing Hodgkin's lymphoma, unspecified body region (HCC); Arthritis pain; 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); Chemotherapy-induced neuropathy (HCC); Cancer related pain Start: 07-10-2023 End: 07-10-2023 ambulatory yCnthia Guajardo CCC-OUTPATIENT PHYSICAL THERAPIST Work Phone: [facility] Speech Therapy Start: 07-10-2023 End: 07-10-2023 Patient encounter procedure Cynthia Guajardo CCC-OUTPATIENT PHYSICAL THERAPIST Work Phone: [facility] Speech Therapy Comment on above: Dysphagia, unspecifi ed type (Primary Dx) Start: 07-10-2023 End: 07-10-2023 Subsequent hospital visit by [facility] G[facility] Comment on above: Dysphagia, unspecifi ed type [R13.10] Start: 06-28-2023 End: 06-28-2023 ambulatory JOSE VAIL Facility:[facility] Start: 06-28-2023 End: 06-28-2023 Patient encounter procedure Summer Carver MD Work Phone: Pulmonary Medicine Comment on above: Restrictive lung dis ease (Primary Dx); History of pulmonary embolism; Autologous bone marrow transplantation status (HCC); 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); Bronchiectasis without complication (HCC); Simple chronic bronchitis (HCC) Start: 06-14-2023 E-mail encounter fro m caregiver Radha Ruano APRN.CNP Work Phone: Pulmonary Medicine Start: 06-14-2023 Follow-up encounter Radha valentin APRN.LEAD SYSTEMS DEVELOPER Work Phone: Pulmonary Medicine Comment on above: Follow Up Start: 06-13-2023 Telephone encounter Radha Pelf homero AWS SOLUTION ARCHITECT.LEAD SYSTEMS DEVELOPER Work Phone: Pulmonary Medicine Comment on above: Medication Authoriza tion Start: 06-13-2023 End: 06-13-2023 ambulatory RADHA RUANO Facility:[facility] Start: 06-13-2023 End: 06-13-2023 Office outpatient visit 40 minutes Radha Ruano AWS SOLUTION ARCHITECT.LEAD SYSTEMS DEVELOPER Work Phone: Pulmonary Medicine Comment on above: Bronchitis (Primary Dx); Acute non-recurrent pansinusitis; Oral thrush; Restrictive lung disease; Pleural effusion Start: 06-11-2023 Telephone encounter Jeny Zaidi Hematology/Oncology Comment on above: Results Start: 06-10-2023 End: 06-10-2023 Patient encounter procedure Alexsander Ledezma MD Work Phone: Hematology/Oncology Start: 06-10-2023 End: 06-10-2023 ambulatory Alexsander Ledezma MD Work Phone: Hematology/Oncology Comment on above: 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); Restrictive lung disease; Malaise and fatigue Start: 06-09-2023 Refill Juan Francisco Hutchinson AWS SOLUTION ARCHITECT.LEAD SYSTEMS DEVELOPER Work Phone: Palliative Medicine Comment on above: Refill Request Start: 06-07-2023 End: 06-07-2023 ambulatory LINETTE SKINNER Not Available Start: 06-03-2023 End: 06-03-2023 ambulatory JOSE VAIL Not Available Start: 05-31-2023 End: 05-31-2023 Subsequent hospital visit by physician Xr [facility] Radiology Comment on above: Wheezing [R06.2] Start: 05-31-2023 End: 05-31-2023 Emergency department patient visit JOSE VAIL Facility:[facility] Start: 05-31-2023 End: 05-31-2023 Office outpatient visit 25 minutes Zoila Aguirre AWS SOLUTION ARCHITECT.LEAD SYSTEMS DEVELOPER Work Phone: [facility] Comment on above: Restrictive lung dis ease (Primary Dx); Wheezing Start: 05-31-2023 End: 05-31-2023 ambulatory Gujnan Hi RT(R) Radiology Comment on above: Radiology XR Start: 05-31-2023 Patient encounter procedure Gunjan Hi RT(R) [facility] Start: 05-28-2023 Refill Radha Ruano AWS SOLUTION ARCHITECT.LEAD SYSTEMS DEVELOPER Work Phone: Pulmonary Medicine Comment on above: Med Change Request Start: 05-22-2023 End: 05-22-2023 ambulatory KYLIE NUNES Facility:[facility] Start: 05-22-2023 End: 05-22-2023 Patient encounter procedure Loy Merino PA-C Work Phone: Otolaryngology Comment on above: Dysphagia, unspecifi ed type; Hoarseness; Gastroesophageal reflux disease, unspecified whether esophagitis present; LPRD (laryngopharyngeal reflux disease) Start: 05-21-2023 ambulatory Alexsander Ledezma MD Work Phone: Hematology/Oncology Comment on above: Pet scan Start: 05-20-2023 End: 05-20-2023 ambulatory CYN RAMIRES Facility:[facility] Start: 05-16-2023 End: 05-16-2023 ambulatory JUAN FRANCISCO HUTCHINSON Facility:[facility] Start: 05-12-2023 Refill Juan Francisco Hutchinson AWS SOLUTION ARCHITECT.LEAD SYSTEMS DEVELOPER Work Phone: Palliative Medicine Comment on above: Refill Request Start: 05-10-2023 ambulatory Alexsander Ledezma MD Work Phone: Hematology/Oncology Comment on above: Pet scan Start: 05-07-2023 Refill Juan Francisco Hutchinson AWS SOLUTION ARCHITECT.LEAD SYSTEMS DEVELOPER Work Phone: Palliative Medicine Comment on above: Refill Request Start: 04-19-2023 ambulatory RADHA RUANO [facility] Start: 04-19-2023 End: 04-19-2023 Subsequent hospital visit by physician [facility] Work Phone: [facility] General Comment on above: Influenza with pneum onia [J11.00] Start: 04-19-2023 End: 04-19-2023 ambulatory RADHA RUANO Facility:[facility] Start: 04-19-2023 End: 04-19-2023 Office outpatient visit 40 minutes Radha Ruano APRN.LEAD SYSTEMS DEVELOPER Work Phone: Pulmonary Medicine Comment on above: Influenza with pneum onia (Primary Dx); Restrictive lung disease; Hospital discharge follow-up Start: 04-16-2023 End: 04-16-2023 Patient encounter procedure Alexsander Ledezma MD Work Phone: [facility] Start: 04-16-2023 End: 04-16-2023 ambulatory Alexsander Ledezma MD Work Phone: Hematology/Oncology Comment on above: 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); Restrictive lung disease; Malaise and fatigue Start: 04-09-2023 End: 04-09-2023 ambulatory JOSE VAIL Not Available Start: 04-08-2023 Refill Juan Francisco uHtchinson AWS SOLUTION ARCHITECT.LEAD SYSTEMS DEVELOPER Work Phone: Palliative Medicine Comment on above: Refill Request Start: 04-01-2023 Telephone encounter Linette figueroa AWS SOLUTION ARCHITECT.LEAD SYSTEMS DEVELOPER Work Phone: Hematology/Oncology Comment on above: Lab Orders Start: 03-29-2023 End: 03-29-2023 ambulatory LINETTE SKINNER Not Available Start: 03-29-2023 Refill Linette Skinner MAINTENANCE MECHANIC 2ND SHIFT Work Phone: [facility] Comment on above: COVID-19 Start: 03-29-2023 End: 03-29-2023 Office outpatient visit 15 minutes Linette Skinner MAINTENANCE MECHANIC 2ND SHIFT Work Phone: [facility] Comment on above: COVID-19 (Primary Dx ) Start: 03-28-2023 End: 03-28-2023 Office outpatient visit 25 minutes Kylie Nunes APRN.LEAD SYSTEMS DEVELOPER Work Phone: Pulmonary Medicine Comment on above: Restrictive lung dis ease (Primary Dx); Chronic cough; Post-nasal drip; Hoarseness; Dysphagia, unspecified type; History of pulmonary embolism Start: 03-28-2023 End: 03-28-2023 ambulatory KYLIE NUNES Pulmonary Medicine Comment on above: Spirometry Start: 03-28-2023 End: 03-28-2023 Patient encounter procedure Pulm [facility] Work Phone: [facility] Start: 03-20-2023 End: 03-20-2023 ambulatory ALEXSANDER LEDEZMA Facility:[facility] Start: 03-07-2023 End: 03-07-2023 ambulatory JUAN FRANCISCO HUTCHINSON Facility:[facility] Start: 02-25-2023 End: 02-25-2023 ambulatory LINETTE SKINNER Not Available Start: 02-19-2023 End: 02-19-2023 ambulatory ALEXSANDER LEDEZMA Facility:[facility] Start: 02-12-2023 End: 02-12-2023 ambulatory SHEILA Jorge LIN Not Available Start: 01-29-2023 End: 01-29-2023 Departed Referred MD Jose Vail Work Phone: [facility] [place] Work Phone: Start: 01-29-2023 End: 01-29-2023 ambulatory MD Jose Vail Work Phone: [facility] Other Start: 01-29-2023 Office outpatient vi sit 15 minutes Keke Bright [facility] Start: 01-28-2023 Telephone encounter Alexsander schmidt MD Work Phone: Hematology/Oncology Comment on above: Orders Start: 01-28-2023 End: 01-28-2023 ambulatory ALEXSANDER LEDEZMA Facility:[facility] Start: 01-06-2023 Refill Juan Francisco Hutchinson AWS SOLUTION ARCHITECT.LEAD SYSTEMS DEVELOPER Work Phone: Palliative Medicine Comment on above: [...] encounter procedure Alexsander Ledezma MD Work Phone: [facility] Start: 12-31-2022 Chart abstracting Alexsander kumar MD Work Phone: Hematology/Oncology Start: 12-20-2022 End: 12-20-2022 ambulatory JUAN FRANCISCO HUTCHINSON Facility:[facility] Start: 12-16-2022 ambulatory Summer Carver MD Work [...] on above: Appointment Start: 11-13-2022 Refill Sylvia Mancilla AWS SOLUTION ARCHITECT.LEAD SYSTEMS DEVELOPER Work Phone: Hematology Comment on above: Refill Request Start: 11-08-2022 Refill Cyn Ramires MD Work Phone: Hematology Comment on above: Refill Request Start: 11-05-2022 Refill Charlee Zhao AWS SOLUTION ARCHITECT.LEAD SYSTEMS DEVELOPER Work Phone: [facility] Comment on above: Refill Request Start: 10-25-2022 Refill Cyn Ramires MD Work Phone: Hematology Comment on above: Refill Request Start: 10-23-2022 ambulatory Juan Francisco Hutchinson AWS SOLUTION ARCHITECT.LEAD SYSTEMS DEVELOPER Work Phone: Palliative Medicine Comment on above: Lyrica Start: 10-18-2022 Telephone encounter Kylie Mosher RN [facility] Comment on above: Insurance Authorizat ion Start: 10-18-2022 End: 10-18-2022 Patient encounter procedure Juan Francisco Hutchinson APRN.LEAD SYSTEMS DEVELOPER Work Phone: Palliative Medicine Comment on above: Palliative care by s pecialist (Primary Dx); Nodular sclerosing Hodgkin's lymphoma, unspecified body region (HCC); Cancer related pain; Opioid use agreement exists; Muscle cramps Start: 10-18-2022 End: 10-18-2022 ambulatory [facility] Facility:[facility] Start: 10-18-2022 End: 10-18-2022 Nursing evaluation of patient and report Nurse Derm [facility] Work Phone: [facility] [place] Comment on above: Hidradenitis suppura tiva (Primary Dx); Painful skin lesion Start: 10-08-2022 Refill Juan Francisco Hutchinson APRN.LEAD SYSTEMS DEVELOPER Work Phone: [facility] Palliative Medicine Comment on above: Refill Request Start: 10-06-2022 Refill Juan Francisco Hutchinson APRN.LEAD SYSTEMS DEVELOPER Work Phone: [facility] Palliative Medicine Comment on above: Refill Request Start: 10-01-2022 Refill Cyn Ramires MD Work Phone: Hematology Comment on above: Refill Request Start: 09-13-2022 End: 09-13-2022 ambulatory [facility] Facility:[facility] Start: 09-13-2022 End: 09-13-2022 Patient encounter procedure [...] Refill Request Start: 08-22-2022 End: 08-22-2022 ambulatory Cyn Ramires MD Work Phone: Hematology Comment on above: 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) Start: 08-22-2022 End: 08-22-2022 Patient encounter procedure Cyn Ramires MD Work Phone: [facility] Start: 08-14-2022 End: 08-14-2022 ambulatory CYN RAMIRES Facility:[facility] Start: 08-13-2022 Refill Juan Francisco Hutchinson AWS SOLUTION ARCHITECT.LEAD SYSTEMS DEVELOPER Work Phone: [facility] Palliative Medicine Comment on above: Refill Request Start: 08-09-2022 Refill Cyn Ramires MD Work Phone: Hematology Comment on above: Refill Request Start: 08-07-2022 Refill Cyn Ramires MD Work Phone: Hematology Comment on above: Refill Request Start: 08-02-2022 Telephone encounter Ella schafer AWS SOLUTION ARCHITECT.LEAD SYSTEMS DEVELOPER Work Phone: Pulmonary Medicine Comment on above: Patient Update Start: 08-01-2022 End: 08-01-2022 ambulatory ELLA CHAN Facility:[facility] Start: 08-01-2022 End: 08-01-2022 Patient encounter procedure Ella Chan AWS SOLUTION ARCHITECT.LEAD SYSTEMS DEVELOPER Work Phone: Pulmonary Medicine Comment on above: Chronic cough (Prima ry Dx); Productive cough; Dyspnea on exertion; Opacity of lung on imaging study Start: 07-31-2022 End: 07-31-2022 ambulatory JOSE A VAIL Facility:[facility] Start: 07-25-2022 ambulatory Nova Bridges AWS SOLUTION ARCHITECT.LEAD SYSTEMS DEVELOPER [facility] Start: 07-25-2022 Patient encounter procedure Nova Bridges AWS SOLUTION ARCHITECT.LEAD SYSTEMS DEVELOPER Work Phone: [facility] [place] Comment on above: Appointment Start: 07-24-2022 Refill Cyn Ramires MD Work Phone: Hematology Comment on above: Refill Request Start: 07-22-2022 ambulatory Cyn Ramires MD Work Phone: Hematology Comment on above: Ativan Start: 07-19-2022 End: 07-19-2022 Patient encounter procedure Juan Francisco Hutchinson APRN.LEAD SYSTEMS DEVELOPER Work Phone: Palliative Medicine Comment on above: Palliative care by s pecialist (Primary Dx); Opioid use agreement exists; Cancer related pain; Chemotherapy-induced neuropathy (HCC); 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); Muscle cramps Start: 07-18-2022 End: 07-18-2022 ambulatory Juan Francisco Hutchinson APRN.LEAD SYSTEMS DEVELOPER Work Phone: [facility] Comment on above: Nodular sclerosing H odgkin's lymphoma, unspecified body region (HCC) (Primary Dx) Start: 07-18-2022 End: 07-18-2022 Patient encounter procedure Juan Francisco Hutchinson APRN.LEAD SYSTEMS DEVELOPER Work Phone: Palliative Medicine Comment on above: Appointment Start: 07-17-2022 ambulatory Melissa Pycraft RT(R) Rad iology Ct Scan Comment on above: Radiology CT Start: 07-17-2022 Patient encounter procedure Melissa Pycraft RT(R) [facility] Start: 07-16-2022 Refill Juan Francisco Hutchinson APRN.LEAD SYSTEMS DEVELOPER Work Phone: [facility] Comment on above: Refill Request Start: 06-21-2022 End: 06-21-[address] DOCTOR CHAVIRA Facility: Start: 06-13-2022 Telephone encounter Ella schafer AWS SOLUTION ARCHITECT.LEAD SYSTEMS DEVELOPER Work Phone: Pulmonary Medicine Comment on above: New Medication Start: 06-12-2022 End: 06-12-2022 ambulatory Cyn Ramires [...] Phone: Hematology Comment on above: Appointment Start: 05-31-2022 End: 05-31-2022 Subsequent hospital visit by physician [facility] Leta Work Phone: Radiology Comment on above: Acute cough [R05.1] Start: 05-18-2022 End: 05-18-2022 Telemedicine consultation with patient Jane Del Valle MD Work Phone: [facility] Start: 05-18-2022 End: 05-18-2022 ambulatory Cyn Ramires MD Work Phone: Hematology Comment on above: Labs NO SHOW (Primary Dx) Start: 05-14-2022 Refill Cyn Ramires MD Work Phone: Hematology Comment on above: Refill Request Start: 05-01-2022 End: 05-01-2022 ambulatory Treatment 10 Delfino Rej Work Phone: Hematology Comment on above: 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) Start: 04-25-2022 Telephone encounter Char garcia RN Work Phone: Radiation Oncology Comment on above: Post Radiation Treat ment Follow Up (Second attempt) Start: 04-23-2022 End: 04-23-2022 Patient encounter procedure Juan Francisco Hutchinson APRN.LEAD SYSTEMS DEVELOPER Work Phone: Palliative Medicine Comment on above: Encounter for pallia tive care (Primary Dx); 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); Chemotherapy-induced neuropathy (HCC); Cancer related pain; Muscle cramps; Opioid use agreement exists Start: 04-20-2022 Telephone encounter Char garcia RN Work Phone: Radiation Oncology Comment on above: Post Radiation Treat ment Follow Up Start: 04-16-2022 Refill Juan Francisco Hutchinson APRN.LEAD SYSTEMS DEVELOPER Work Phone: [facility] Palliative Medicine Comment on above: Refill Request Start: 04-11-2022 Patient encounter procedure Jane Del Valle MD Work Phone: [facility] Start: 04-11-2022 Radiation Oncology Note Jane Del Valle MD Work Phone: Radiation Oncology Comment on above: Completion Note Start: 04-10-2022 End: 04-10-2022 ambulatory Treatment 9 Delfino Rej Work Phone: Hematology Comment on above: 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); Encounter for long-term (current) use of medications; Encounter for antineoplastic immunotherapy Start: 03-30-2022 Orders Only Tracy meléndez MD Work Phone: Hematology Comment on above: 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) Start: 03-23-2022 End: 03-23-2022 Patient encounter procedure [facility] Provider [facility] Comment on above: 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) Start: 03-23-2022 Radiation Oncology Note [facility] Provider [facility] Department Comment on above: RTT Injection Treatment Planning Start: 03-23-2022 End: 03-23-2022 Nursing evaluation of patient and report Nurse Cathleen Main Work Phone: Radiation Oncology Comment on above: 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); Autologous bone marrow transplantation status (HCC) Start: 03-22-2022 Telephone encounter Dary Gonzalez RN Radiation Oncology Start: 03-15-2022 Refill Lesley Figueroa on AWS SOLUTION ARCHITECT.LEAD SYSTEMS DEVELOPER Work Phone: [facility] Palliative Medicine Comment on above: Refill Request Start: 03-12-2022 End: 03-12-2022 ambulatory Jane Del Valle MD Work Phone: Radiation Oncology Comment on above: 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) Start: 03-12-2022 End: 03-12-2022 Telemedicine consultation with patient Jane Del Valle MD Work Phone: [facility] Start: 03-07-2022 End: 03-07-2022 ambulatory Cyn Ramires MD Work Phone: Hematology Comment on above: Chemotherapy-induced neuropathy (HCC) (Primary Dx) Start: 03-07-2022 End: 03-07-2022 Patient encounter procedure Cyn Ramires MD Work Phone: [facility] Start: 03-05-2022 Refill Sylvia Mancilla AWS SOLUTION ARCHITECT.LEAD SYSTEMS DEVELOPER Work Phone: Hematology Comment on above: Refill Request Start: 02-14-2022 End: 02-14-2022 ambulatory Treatment 11 Delfino Rej Work Phone: Hematology Comment on above: 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); Encounter for antineoplastic immunotherapy Start: 02-09-2022 Orders Only Antonia Lisa MD Work Phone: [facility] Provider [facility] Start: 01-25-2022 End: 01-26-2022 ambulatory JOSE Mikayla VAIL Facility:[facility] Start: 01-25-2022 End: 01-25-2022 Patient encounter procedure Juan Francisco Hutchinson AWS SOLUTION ARCHITECT.LEAD SYSTEMS DEVELOPER Work Phone: [facility] Comment on above: Encounter for pallia tive care (Primary Dx); Opioid use agreement exists; Anxiety; Cancer related pain; Chemotherapy-induced neuropathy (HCC); 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); Muscle cramps Start: 01-22-2022 Refill Juan Francisco Hutchinson APRN.LEAD SYSTEMS DEVELOPER Work Phone: [facility] Palliative Medicine Comment on above: Refill Request [...] above: Appointment Start: 01-15-2022 Refill Cheryl velázquez APRN.LEAD SYSTEMS DEVELOPER Work Phone: [facility] Palliative Medicine Comment on above: Refill Request [...] End: 12-27-2021 Patient encounter procedure Sylvia Mancilla APRN.LEAD SYSTEMS DEVELOPER Work Phone: [facility] Start: 12-17-2021 Refill Juan Francisco Hutchinson APRN.LEAD SYSTEMS DEVELOPER Work Phone: [facility] Palliative Medicine Comment on above: Refill Request Start: 12-11-2021 Refill Cyn Ramires MD Work Phone: Hematology Comment on above: Refill Request Start: 12-07-2021 End: 12-07-2021 Patient encounter procedure Novachelsea Bridges AWS SOLUTION ARCHITECT.LEAD SYSTEMS DEVELOPER Work Phone: [facility] [place] Comment on above: Acne vulgaris (Prima ry Dx) Start: 12-06-2021 End: 12-06-2021 ambulatory Treatment 5 Delfino Rej Work Phone: Hematology Comment on above: 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) Start: 12-04-2021 Refill Cyn Ramires MD Work Phone: Hematology Comment on above: Refill Request Start: 12-03-2021 Refill Sylvia Mancilla AWS SOLUTION ARCHITECT.LEAD SYSTEMS DEVELOPER Work Phone: Hematology Comment on above: Refill [...] Request Start: 10-31-2021 Refill Juan Francisco Hutchinson AWS SOLUTION ARCHITECT.LEAD SYSTEMS DEVELOPER Work Phone: [facility] Palliative Medicine Comment on above: Refill Request Start: 10-26-2021 End: 10-26-2021 Patient encounter procedure Juan Francisconydia Hutchinson AWS SOLUTION ARCHITECT.LEAD SYSTEMS DEVELOPER Work Phone: [facility] Comment on [...] End: 10-25-2021 Patient encounter procedure Sylvia Mancilla AWS SOLUTION ARCHITECT.LEAD SYSTEMS DEVELOPER Work Phone: [facility] Start: 10-17-2021 ambulatory Cyn Ramires MD Work Phone: Hematology Comment on above: Insurance Start: 10-16-2021 Refill Cheryl velázquez AWS SOLUTION ARCHITECT.LEAD SYSTEMS DEVELOPER Work Phone: [facility] Comment on above: Refill Request Start: 10-04-2021 Refill Cyn Ramires MD Work Phone: Hematology Comment on above: Refill Request Start: 10-02-2021 Orders Only Cyn Ramires MD Work Phone: Hematology/Oncology Comment on above: Nodular sclerosing H odgkin's lymphoma, unspecified body region (HCC) (Primary Dx) Start: 10-02-2021 Refill Joanne Jade PA-C Work Phone: Pulmonary Medicine Comment on above: Refill Request Start: 09-22-2021 ambulatory Cyn Ramires MD Work Phone: [facility] Start: 09-22-2021 Patient encounter procedure Cyn Ramires MD Work Phone: Hematology Comment on above: Appointment Start: 09-22-2021 Telephone encounter Caro Srinivasan RN Hematology Comment on above: Test Deck Supervisor - Marianne Rios Follow Up Start: 09-11-2021 Refill Cyn Ramires MD Work Phone: Hematology Comment on above: Refill Request Start: 09-06-2021 End: 09-06-2021 ambulatory Treatment 3 Delfino Rej Work Phone: Hematology Comment on above: 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) Start: 09-05-2021 End: 09-05-2021 Patient encounter procedure Nova Bridges AWS SOLUTION ARCHITECT.LEAD SYSTEMS DEVELOPER Work Phone: [facility] [place] Comment on above: Hidradenitis suppura tiva (Primary Dx); Painful skin lesion; Dermatofibroma of left knee Start: 09-03-2021 Refill Cyn Ramires MD Work Phone: Hematology Comment on above: Refill Request Start: 09-02-2021 Refill Gurpreet Rios Work Phone: [facility] Comment on above: Refill Request Start: 08-30-2021 Refill Cyn Ramires MD Work Phone: Hematology Comment on above: Refill Request Start: 08-16-2021 End: 08-16-2021 ambulatory Treatment 6 Delfino Rej Work Phone: Hematology Comment on above: 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) Start: 08-14-2021 Refill Juan Francisco Hutchinson AWS SOLUTION ARCHITECT.LEAD SYSTEMS DEVELOPER Work Phone: [facility] Comment on above: Refill Request Start: 08-03-2021 Telephone encounter Kristina Pete RN Mobile Services Comment on above: Care Coordination (P all med referral) Start: 07-31-2021 Orders Only Cyn Ramires MD Work Phone: Hematology Comment on above: Muscle cramps; Nodular sclerosis classical Hodgkin lymphoma (HCC) Start: 07-30-2021 ambulatory Juan Francisco Hutchinson AWS SOLUTION ARCHITECT.LEAD SYSTEMS DEVELOPER Work Phone: [facility] Start: 07-30-2021 Patient encounter procedure Juan Francisco Hutchinson AWS SOLUTION ARCHITECT.LEAD SYSTEMS DEVELOPER Work Phone: [facility] Comment on above: Saturday appointmen t Start: 07-28-2021 End: 07-28-2021 Patient encounter procedure Nova Bridges AWS SOLUTION ARCHITECT.LEAD SYSTEMS DEVELOPER Work Phone: Dermatology [place] Comment on above: Hidradenitis suppura tiva (Primary Dx); Painful skin lesion Start: 07-26-2021 End: 07-26-2021 ambulatory Treatment 12 Delfino Rej Work Phone: Hematology Comment on above: 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) Start: 07-24-2021 End: 07-24-[address] [facility] Facility: Start: 2021 Refill Cyn Ramires MD [...] Request Start: 06-15-2021 Refill Juan Francisco Hutchinson AWS SOLUTION ARCHITECT.LEAD SYSTEMS DEVELOPER Work Phone: [facility] Comment on above: Refill Request [...] 05-17-2021 Patient encounter procedure Juan Francisco Hutchinson AWS SOLUTION ARCHITECT.LEAD SYSTEMS DEVELOPER Work Phone: [facility] Comment on above: Encounter for pallia tive care (Primary Dx); 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); Cancer related pain; Chemotherapy-induced neuropathy (HCC); Muscle cramps; Anxiety Refill Request Start: 05-17-2021 Refill Sylvia Mancilla AWS SOLUTION ARCHITECT.LEAD SYSTEMS DEVELOPER Work Phone: Hematology Comment on above: Refill Request Start: 05-17-2021 Telephone encounter Zaira DELANEY Work Phone: Hematology Comment on above: Test Deck Supervisor - O ther Start: 05-16-2021 ambulatory Cyn Ramires MD Work Phone: [facility] Start: 05-16-2021 Patient encounter procedure Cyn Ramires MD Work Phone: Hematology Comment on above: Appointment 05/17 Start: 02-02-2021 End: 12-16-2021 ambulatory Kylie Johnson Other [facility] [employer] Other Start: 02-02-2021 Office outpatient vi sit 15 minutes Kylie Johnson [facility] Start: 09-07-2014 End: 12-26-2015 Patient encounter status Juan Francisco Hutchinson AWS SOLUTION ARCHITECT.LEAD SYSTEMS DEVELOPER Work Phone: [facility] Procedures Date Procedure Procedure Detail Performing Clinician Start: 07-19-2023 Radiologic exam esop hagus single contrast study Loy Merino PA-C Work Phone: Start: 07-10-2023 Radiologic exam swal low function contrast study Loy Merino PA-C Work Phone: Start: 05-31-2023 Radiologic exam ches t 2 views Zoila Aguirre AWS SOLUTION ARCHITECT.LEAD SYSTEMS DEVELOPER Work Phone: Start: 03-28-2023 Nitric oxide gas determination Ellanan Chan AWS SOLUTION ARCHITECT.LEAD SYSTEMS DEVELOPER Work Phone: Start: 03-28-2023 Co diffusing capacity L atnan Chan AWS SOLUTION ARCHITECT.LEAD SYSTEMS DEVELOPER Work Phone: Start: 05-31-2022 Ct thorax w/o contra st material Cyn Ramires MD Work Phone: Start: 10-25-2021 Adult depression scr eening assessment Treatment Rej Work Phone: Start: 06-14-2021 Adult depression scr eening assessment Cyn Ramires MD Work Phone: Start: 03-08-2021 Adult depression scr eening assessment Sylvia Mancilla AWS SOLUTION ARCHITECT.LEAD SYSTEMS DEVELOPER Work Phone: Start: 10-17-2018 Mammography Linette novak MAINTENANCE MECHANIC 2ND SHIFT Work Phone: Plan of Treatment Date Care Activity Detail Author Start: 03-11-2024 Urine microalbumin profile [facility] Start: 10-28-2023 End: 10-28-2023 Patient encounter procedure [facility] Comment on above: Pleural effusion, left [J90] Pleural effusion, le ft [J90]; Pulmonary hypertension (HCC) [I27.20] Start: 10-20-2023 Influenza vaccination Influenza Vaccine (Season Ended) [facility] Start: 10-09-2023 End: 10-09-2023 Patient encounter procedure 10/09/2023 11:00 AM EDT Office Visit Rheumatology [address] [place] [address] Simin Brandt MD [address] [place] [address] Psoriatic arthritis (HCC) [L40.50] Rheumatology Comment on above: Psoriatic arthritis (HCC) [L40.50] Start: 10-08-2023 End: 10-08-2023 Patient encounter procedure 10/08/2023 8:00 AM EDT Office Visit Rheumatology [address] [facility] [place] [address] Simin Brandt MD [address] [place] [address] Psoriatic arthritis (HCC) [L40.50] Rheumatology Comment on above: Psoriatic arthritis (HCC) [L40.50] Start: 10-03-2023 End: 10-03-2023 Patient encounter procedure 10/03/2023 10:00 AM EDT Appointment [facility] [address] [place] [address] XR ESOPHAGRAM [facility] Comment on above: XR ESOPHAGRAM Start: 09-26-2023 End: 09-26-2023 Patient encounter procedure 09/26/2023 11:15 AM EDT Office Visit Pulmonary Medicine [address] [place] [address] [place] [address] [place] [address] Return in about 6 months (around 09/26/2023). Pulmonary Medicine Comment on above: Return in about 6 months (around ). Start: 09-18-2023 End: 09-18-2023 Patient encounter procedure 09/18/2023 9:40 AM EDT Office Visit Otolaryngology [address] [place] [address] Loy Merino PA-C [address] [place] [address] Return for Follow up after MBS, XR esophagram; sooner if clinically indicated.. Otolaryngology Comment on above: Return for Follow up after MBS, XR esoph agram; sooner if clinically indicated.. Start: 08-18-2023 Influenza vaccination Influenza Vaccine (#1) [facility] Comment on above: Postponed from 10/19/2022 (Patient Refus ed) Start: 08-12-2023 End: 08-12-2023 Patient encounter procedure General Radiology Comment on above: right wrist pain Start: 08-08-2023 End: 08-08-2023 ambulatory 08/08/2023 10:00 AM EDT [facility] [address] [place] [address] Juan Francisco Hutchinson, AWS SOLUTION ARCHITECT.LEAD SYSTEMS DEVELOPER [address] [place] [address] Return in about 4 weeks (around 08/08/2023) for virtual visit . Palliative Medicine Comment on above: Return in about 4 weeks (around ) for virtual visit . Start: 08-05-2023 End: 08-05-2023 ambulatory 08/05/2023 10:15 AM EDT Visit (SP) Office Hematology/Oncology [address] [facility] [place] [address] Alexsander Ledezma MD [address] [place] [address] 8 week lab Hematology/Oncology Comment on above: 8 week lab Start: 08-05-2023 End: 08-05-2023 Patient encounter procedure 08/05/2023 10:00 AM EDT Office Visit [facility] [address] [facility] [place] [address] 8 week lab [facility] Comment on above: 8 week lab Start: 07-19-2023 End: 07-19-2023 Patient encounter procedure 07/19/2023 1:20 PM EDT Appointment Radiology [address] [place] [place], [place] [id number] XR ESOPHAGRAM Radiology Comment on above: XR ESOPHAGRAM Start: 07-17-2023 End: 07-17-2023 Patient encounter procedure 07/17/2023 9:40 AM EDT Office Visit Otolaryngology [address] [place] [address] Loy Merino PA-C [address] [place] [address] Return for Follow up after MBS, XR esophagram; sooner if clinically indicated.. Otolaryngology Comment on above: Return for Follow up after MBS, XR esoph agram; sooner if clinically indicated.. Start: 07-12-2023 End: 07-12-2023 Patient encounter procedure [facility] Comment on above: Pleural effusion, left [J90] Pleural effusion, le ft [J90]; Pulmonary hypertension (HCC) [I27.20] Start: 2023 End: 2023 Patient encounter procedure 2023 10:00 AM EDT Office Visit Palliative Medicine [address] [place] [address] Juan Francisco Hutchinson APRN.LEAD SYSTEMS DEVELOPER [address] [place] [address] Return in about 8 weeks (around 2023). Palliative Medicine Comment on above: Return in about 8 weeks (around ). Start: 07-10-2023 End: 07-10-2023 Patient encounter procedure [facility] Comment on above: Dysphagia, unspecified type [R13.10] Start: 07-04-2023 Medicare Annual Wellness (AWV) Medicare Annual Wellness (AWV) [facility] Start: 06-28-2023 End: 06-28-2023 Patient encounter procedure 06/28/2023 11:00 AM EDT Office Visit Pulmonary Medicine [address] [place] [address] [place] [address] [place] [address] Carver Ms. Potts also needs to be added onto Dr. Carver's schedule at [place] on Saturday06/28/23 at 11 am (it is a hospital day for her but adding her on per Dr. Carver). Dr. Carver would also like her put on the cancellation list for a sooner appt. Pulmonary Medicine Comment on above: ok per Dr. Carver Ms. Potts also needs to be added onto Dr. Carver's schedule at [place] on Saturday06/28/23 at 11 am (it is a hospital day for her but adding her on per Dr. Carver). Dr. Carver would also like her put on the cancellation list for a sooner appt. Start: 06-13-2023 End: 06-13-2023 Patient encounter procedure 06/13/2023 11:00 AM EDT Office Visit Pulmonary Medicine [address] [place] [address] Radha Ruano APRN.LEAD SYSTEMS DEVELOPER [address] [place] [address] follow up for express care Pulmonary Medicine Comment on above: follow up for express care Start: 06-03-2023 End: 06-03-2023 Patient encounter procedure 06/03/2023 8:30 AM EDT Office Visit [facility] 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) Expected: 04/16/2023, Expires: 07/16/2023 [facility] Work Phone: Comment on above: Expected: 04/16/2023, Expires: 4 Start: 04-16-2023 End: 07-16-2023 Cortisol [Mass/volume] in Serum or Plasma CORTISOL BLD Lab Routine 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) Expected: 04/16/2023, Expires: 07/16/2023 [facility] Work Phone: Comment on above: Expected: 04/16/2023, Expires: 4 Start: 04-16-2023 End: 07-16-2023 Erythrocyte sedimentation rate SED RATE WESTERGREN Lab Routine 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) Expected: 04/16/2023, Expires: 07/16/2023 [facility] Work Phone: Comment on above: Expected: 04/16/2023, Expires: 4 Start: 02-18-2023 Behavioral Health Screening Behavioral Health Screening [facility] Start: 02-18-2023 Depression Assessment Depression Assessment [facility] Start: 01-29-2023 Bacteria identified in Urine by Culture [facility] Start: 01-28-2023 End: 04-29-2023 Cortisol [Mass/volume] in Serum or Plasma [facility] Work Phone: Comment on above: Expected: 01/28/2023, Expires: 4 Start: 10-25-2022 Adult depression screening assessment DEPRESSION SCREENING [facility] Start: 10-21-2022 Screening for malignant neoplasm of cervix [facility] Start: 10-19-2022 Influenza vaccination [facility] Start: 08-01-2022 End: 10-01-2022 Bacteria identified in Unspecified specimen by Respiratory culture RESP CULTURE + STAIN Microbiology Routine Productive cough Expected: 08/01/2022, Expires: 10/01/2022 [facility] Work Phone: Comment on above: Expected: 08/01/2022, Expires: 3 Start: 2022 Mammography [facility] Start: 2022 Screening for malignant neoplasm of breast [facility] Start: 06-14-2022 Adult depression screening assessment DEPRESSION SCREENING [facility] Start: 04-10-2022 End: 06-10-2022 Comprehensive metabolic 2000 panel - Serum or Plasma COMP METABOLIC PANEL Lab Routine 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) Expected: 04/10/2022, Expires: 06/10/2022 [facility] Work Phone: Comment on above: Expected: 04/10/2022, Expires: 3 Start: 04-10-2022 End: 06-10-2022 Thyrotropin [Units/volume] in Serum or Plasma TSH BLD Lab Routine 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) Expected: 04/10/2022, Expires: 06/10/2022 [facility] Work Phone: Comment on above: Expected: 04/10/2022, Expires: 3 Start: 04-10-2022 End: 06-10-2022 Thyroxine (T4) free [Mass/volume] in Serum or Plasma T4 FREE/FREE THYROX Lab Routine 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) Expected: 04/10/2022, Expires: 06/10/2022 [facility] Work Phone: Comment on above: Expected: 04/10/2022, Expires: 3 Start: 03-08-2022 Adult depression screening assessment DEPRESSION SCREENING [facility] Start: 02-18-2022 DEPRESSION ASSESSMENT DEPRESSION ASSESSMENT [facility] Start: 01-25-2022 End: 03-27-2022 PAIN PANEL, UR QUANT [facility] Work Phone: Comment on above: Expected: 01/25/2022, Expires: 3 Start: 01-18-2022 End: 03-20-2022 Comprehensive metabolic 2000 panel - Serum or Plasma COMP METABOLIC PANEL Lab Routine 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) Expected: 01/18/2022, Expires: 03/20/2022 [facility] Work Phone: Comment on above: Expected: 01/18/2022, Expires: 3 Start: 01-18-2022 End: 03-20-2022 Thyrotropin [Units/volume] in Serum or Plasma TSH BLD Lab Routine 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) Expected: 01/18/2022, Expires: 03/20/2022 [facility] Work Phone: Comment on above: Expected: 01/18/2022, Expires: 3 Start: 01-18-2022 End: 03-20-2022 Thyroxine (T4) free [Mass/volume] in Serum or Plasma T4 FREE/FREE THYROX Lab Routine 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) Expected: 01/18/2022, Expires: 03/20/2022 [facility] Work Phone: Comment on above: Expected: 01/18/2022, Expires: 3 Start: 11-15-2021 End: 01-15-2022 Comprehensive metabolic 2000 panel - Serum or Plasma COMP METABOLIC PANEL Lab Routine 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) Expected: 11/15/2021, Expires: 01/15/2022 [facility] Work Phone: Comment on above: Expected: 11/15/2021, Expires: 2 Start: 11-15-2021 End: 01-15-2022 Thyrotropin [Units/volume] in Serum or Plasma TSH BLD Lab Routine 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) Expected: 11/15/2021, Expires: 01/15/2022 [facility] Work Phone: Comment on above: Expected: 11/15/2021, Expires: 2 Start: 11-15-2021 End: 01-15-2022 Thyroxine (T4) free [Mass/volume] in Serum or Plasma T4 FREE/FREE THYROX Lab Routine 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) Expected: 11/15/2021, Expires: 01/15/2022 [facility] Work Phone: Comment on above: Expected: 11/15/2021, Expires: 2 Start: 10-26-2021 End: 12-26-2021 Comprehensive metabolic 2000 panel - Serum or Plasma COMP METABOLIC PANEL Lab Routine 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) Expected: 10/26/2021, Expires: 12/26/2021 [facility] Work Phone: Comment on above: Expected: 10/26/2021, Expires: 2 Start: 10-26-2021 End: 12-26-2021 Thyrotropin [Units/volume] in Serum or Plasma TSH BLD Lab Routine 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) Expected: 10/26/2021, Expires: 12/26/2021 [facility] Work Phone: Comment on above: Expected: 10/26/2021, Expires: 2 Start: 10-26-2021 End: 12-26-2021 Thyroxine (T4) free [Mass/volume] in Serum or Plasma T4 FREE/FREE THYROX Lab Routine 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) Expected: 10/26/2021, Expires: 12/26/2021 [facility] Work Phone: Comment on above: Expected: 10/26/2021, Expires: 2 Start: 10-19-2021 Influenza vaccination [facility] Start: 09-06-2021 End: 11-06-2021 Comprehensive metabolic 2000 panel - Serum or Plasma COMP METABOLIC PANEL Lab Routine 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) Expected: 09/06/2021, Expires: 11/06/2021 [facility] Work Phone: Comment on above: Expected: 09/06/2021, Expires: 2 Start: 09-06-2021 End: 11-06-2021 Thyrotropin [Units/volume] in Serum or Plasma TSH BLD Lab Routine 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) Expected: 09/06/2021, Expires: 11/06/2021 [facility] Work Phone: Comment on above: Expected: 09/06/2021, Expires: 2 Start: 09-06-2021 End: 11-06-2021 Thyroxine (T4) free [Mass/volume] in Serum or Plasma T4 FREE/FREE THYROX Lab Routine 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) Expected: 09/06/2021, Expires: 11/06/2021 [facility] Work Phone: Comment on above: Expected: 09/06/2021, Expires: 2 Start: 02-18-2021 DEPRESSION ASSESSMENT DEPRESSION ASSESSMENT [facility] Start: 10-19-2020 Influenza vaccination INFLUENZA (#1) [facility] Start: 09-08-2019 HPV TESTING HPV TESTING [facility] Start: 09-08-2019 Screening for malignant neoplasm of cervix HPV Testing [facility] Start: 10-26-2017 PAP TESTING PAP TESTING [facility] Start: 10-26-2017 Screening for malignant neoplasm of cervix [facility] Start: 06-17-2015 PNEUMOCOCCAL (2 - PPSV23 if available, else PCV20) PNEUMOCOCCAL (2 - PPSV23 if available, else PCV20) [facility] Start: 06-17-2015 PNEUMOCOCCAL (2 - PPSV23 or PCV20) PNEUMOCOCCAL (2 - PPSV23 or PCV20) [facility] Start: 08-11-2014 PNEUMOCOCCAL (2 - PPSV23 if available, else PCV20) PNEUMOCOCCAL (2 - PPSV23 if available, else PCV20) [facility] Start: 08-11-2014 PNEUMOCOCCAL (2 - PPSV23 or PCV20) PNEUMOCOCCAL (2 - PPSV23 or PCV20) [facility] Start: 08-11-2014 Pneumococcal vaccination [facility] Start: 07-12-2003 Screening for malignant neoplasm of cervix Pap Smear [facility] Start: 2001 SHINGRIX VACCINE (1 of 2) SHINGRIX VACCINE (1 of 2) [facility] Start: 2001 TWO PNEUMOVAX 5 YEARS APART PRIOR TO AGE 65 (#1) TWO PNEUMOVAX 5 YEARS APART PRIOR TO AGE 65 (#1) [facility] Start: 1994 COVID-19 VACCINE (1) COVID-19 VACCINE (1) [facility] Start: 07-12-1987 COVID-19 VACCINE (#1) COVID-19 VACCINE (#1) [facility] Start: 01-11-1983 COVID-19 VACCINE (#1) COVID-19 VACCINE (#1) [facility] Bacteria identified in Unspecified specimen by Respiratory culture RESPIRATORY CULTURE AND STAIN Microbiology Routine Bronchitis Restrictive lung disease Ordered: 06/13/2023 [facility] Work Phone: Comment on above: Ordered: 06/13/2023 End: 03-30-2023 CBC W Auto Differential panel - Blood CBC + DIFF Lab Routine 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 Occurrences starting 03/31/2022 until 03/30/2023 [facility] Work Phone: Comment on above: Every other week for 25 Occurrences star ting 03/31/2022 until 03/30/2023 Comprehensive metabo lic 2000 panel - Serum or Plasma COMP METABOLIC PANEL Lab Routine 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) Ordered: 05/17/2021 [facility] Work Phone: Comment on above: Ordered: 05/17/2021 End: 03-30-2023 Comprehensive metabolic 2000 panel - Serum or Plasma COMP METABOLIC PANEL Lab Routine 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 Occurrences starting 03/31/2022 until 03/30/2023 [facility] Work Phone: Comment on above: Every other week for 25 Occurrences star ting 03/31/2022 until 03/30/2023 COVID & INFLUENZA A/ B & RSV NAAT, ROUTINE COVID & INFLUENZA A/B & RSV NAAT, ROUTINE Microbiology Routine Wheezing 05/31/2023 3:30 PM EDT [facility] Work Phone: End: 12-27-2022 Echocardiography ECHO Cardiology Routine Nodular sclerosing Hodgkin's lymphoma, unspecified body region (HCC) JOE (dyspnea on exertion) Chronic cough 1 Occurrences starting 12/27/2021 until 12/27/2022 [facility] Work Phone: Comment on above: 1 Occurrences starting 12/27/2021 until 12/27/2022 End: 09-01-2023 LUNG DIFFUSION CAPACITY (DLCO) LUNG DIFFUSION CAPACITY (DLCO) PFT Routine Chronic cough 1 Occurrences starting 08/02/2022 until 09/01/2023 [facility] Work Phone: Comment on above: 1 Occurrences starting 08/02/2022 until 09/01/2023 LUNG DIFFUSION CAPAC ITY (DLCO) LUNG DIFFUSION CAPACITY (DLCO) PFT Routine Chronic cough 03/28/2023 1:39 PM EST [facility] Work Phone: End: 09-01-2023 NITRIC OXIDE, EXHALED NITRIC OXIDE, EXHALED PFT Routine Bronchitis 1 Occurrences starting 08/02/2022 until 09/01/2023 [facility] Work Phone: Comment on above: 1 Occurrences starting 08/02/2022 until 09/01/2023 End: 07-14-2022 NM PET/CT SKULL-THIGH SUBSEQUENT NM PET/CT SKULL-THIGH SUBSEQUENT Radiology Routine Hodgkin lymphoma, unspecified Hodgkin lymphoma type, unspecified body region (HCC) 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) 1 Occurrences starting 06/14/2021 until 07/14/2022 [facility] Work Phone: Comment on above: 1 Occurrences starting 06/14/2021 until 07/14/2022 End: 12-15-2022 NM PET/CT SKULL-THIGH SUBSEQUENT NM PET/CT SKULL-THIGH SUBSEQUENT Radiology Routine Nodular sclerosing Hodgkin's lymphoma, unspecified body region (HCC) 1 Occurrences starting 11/15/2021 until 12/15/2022 [facility] Work Phone: Comment on above: 1 Occurrences starting 11/15/2021 until 12/15/2022 End: 08-17-2023 NM PET/CT SKULL-THIGH SUBSEQUENT NM PET/CT SKULL-THIGH SUBSEQUENT Radiology Routine Nodular sclerosing Hodgkin's lymphoma, unspecified body region (HCC) 1 Occurrences starting 07/18/2022 until 08/17/2023 [facility] Work Phone: Comment on above: 1 Occurrences starting 07/18/2022 until 08/17/2023 End: 09-21-2023 NM PET/CT SKULL-THIGH SUBSEQUENT NM PET/CT SKULL-THIGH SUBSEQUENT Radiology Routine 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) 1 Occurrences starting 08/22/2022 until 09/21/2023 [facility] Work Phone: Comment on above: 1 Occurrences starting 08/22/2022 until 09/21/2023 End: 01-31-2024 NM PET/CT SKULL-THIGH SUBSEQUENT NM PET/CT SKULL-THIGH SUBSEQUENT Radiology Routine 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) 1 Occurrences starting 01/01/2023 until 01/31/2024 [facility] Work Phone: Comment on above: 1 Occurrences starting 01/01/2023 until 01/31/2024 End: 06-20-2024 RF videography Hypopharynx and Esophagus Views W liquid and paste contrast PO during swallowing XR MODIFIED BARIUM SWALLOW W SPEECH THERAPY Radiology Routine Dysphagia, unspecified type 1 Occurrences starting 05/22/2023 until 06/20/2024 [facility] Work Phone: Comment on above: 1 Occurrences starting 05/22/2023 until 06/20/2024 End: 09-01-2023 SPIROMETRY - BASELINE AND POST DILATOR SPIROMETRY - BASELINE AND POST DILATOR PFT Routine Chronic cough 1 Occurrences starting 08/02/2022 until 09/01/2023 [facility] Work Phone: Comment on above: 1 Occurrences starting 08/02/2022 until 09/01/2023 SPIROMETRY - BASELIN E AND POST DILATOR SPIROMETRY - BASELINE AND POST DILATOR PFT Routine Chronic cough 03/28/2023 1:39 PM EST [facility] Work Phone: T4 FREE/FREE THYROX T4 FREE/FREE THYROX Lab Routine 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) Ordered: 05/17/2021 [facility] Work Phone: Comment on above: Ordered: 05/17/2021 Thyrotropin [Units/volume] in Serum or Plasma TSH BLD Lab Routine 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) Ordered: 05/17/2021 [facility] Work Phone: Comment on above: Ordered: 05/17/2021 End: 03-30-2023 Thyrotropin [Units/volume] in Serum or Plasma TSH BLD Lab Routine 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 Occurrences starting 03/31/2022 until 03/30/2023 [facility] Work Phone: Comment on above: Every other week for 25 Occurrences star ting 03/31/2022 until 03/30/2023 End: 03-30-2023 Thyroxine (T4) free [Mass/volume] in Serum or Plasma T4 FREE/FREE THYROX Lab Routine 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 Occurrences starting 03/31/2022 until 03/30/2023 [facility] Work Phone: Comment on above: Every other week for 25 Occurrences star ting 03/31/2022 until 03/30/2023 End: 07-13-2024 US Chest US CHEST EFFUSION SURVEY Radiology Routine Pleural effusion, left 1 Occurrences starting 06/14/2023 until 07/13/2024 [facility] Work Phone: Comment on above: 1 Occurrences starting 06/14/2023 until 07/13/2024 End: 05-18-2024 XR Chest PA and Lateral XR CHEST 2V FRONTAL/LAT Radiology Routine Influenza with pneumonia 1 Occurrences starting 04/19/2023 until 05/18/2024 [facility] Work Phone: Comment on above: 1 Occurrences starting 04/19/2023 until 05/18/2024 XR Chest PA and Lateral XR CHEST 2V FRONTAL/LAT Radiology Routine Influenza with pneumonia 04/19/2023 9:38 AM EST [facility] Work Phone: End: 06-20-2024 XR Esophagus Views W contrast PO XR ESOPHAGRAM Radiology Routine Dysphagia, unspecified type Gastroesophageal reflux disease, unspecified whether esophagitis present 1 Occurrences starting 05/22/2023 until 06/20/2024 [facility] Work Phone: Comment on above: 1 Occurrences starting 05/22/2023 until 06/20/2024 End: 08-28-2024 XR Wrist - right PA and Lateral and Oblique XR WRIST GENERAL 3V PA/LAT/OBL RIGHT Radiology Routine Pain 1 Occurrences starting 07/31/2023 until 08/28/2024 [facility] Work Phone: Comment on above: 1 Occurrences starting 07/31/2023 until 08/28/2024 [facility] c [facility] c [facility] c [facility] c [facility] c [facility] c [facility] c [facility] c [facility] Immunizations Immunization Date Immunization Notes Care Provider Kun snyder 12-16-2014 influenza, injectabl e, quadrivalent, preservative free Sylvia Mancilla [employer] SOLUTION ARCHITECT.[employer] SYSTEM[employer] DEVELOPER Work Phone: [facility] 12-16-2014 influenza virus vacc ine, unspecified formulation Charlee Merrittjolene AWS SOLUTION ARCHITECT.LEAD SYSTEMS DEVELOPER Work Phone: [facility] 06-16-2014 hepatitis A and hepa titis B vaccine Sylvia Gross AWS SOLUTION ARCHITECT.LE[employer] SYSTEMS DEVELOPER Work Phone: [facility] 06-16-2014 pneumococcal conjuga te vaccine, 13 valent Sylvia Gross AWS SOLUTION ARCHITECT.LEAD SYSTEMS DEVELOPER Work Phone: [facility] 03-11-2014 diphtheria and tetan us toxoids, adsorbed for pediatric use Sylvia Gross AWS SOLUTION ARCHITECT.LEAD SYSTEMS DEVELOPER Work Phone: [facility] 03-11-2014 haemophilus influenz ae type b vaccine, PRP-OMP conjugate Sylvia Gross AWS SOLUTION ARCHITECT.LEAD SYSTEMS DEVELOPER Work Phone: [facility] 03-11-2014 meningococcal polysaccharide vaccine (MPSV4) Sylvia Gross AWS SOLUTION ARCHITECT.LEAD SYSTEMS DEVELOPER Work Phone: [facility] 03-11-2014 pneumococcal conjuga te vaccine, 13 valent Sylvia Gross AWS SOLUTION ARCHITECT.LEAD SYSTEMS DEVELOPER Work Phone: [facility] 03-11-2014 poliovirus vaccine, inactivated Sylvia Gross AWS SOLUTION ARCHITECT.LEAD SYSTEMS DEVELOPER Work Phone: [facility] 03-11-2014 tetanus toxoid, adsorbed Josi ka Gross AWS SOLUTION ARCHITECT.LEAD SYSTEMS DEVELOPER Work Phone: [facility] 03-11-2014 tetanus toxoid, redu jessica diphtheria toxoid, and acellular pertussis vaccine, adsorbed Sylvia Gross AWS SOLUTION ARCHITECT.LEAD SYSTEMS DEVELOPER Work Phone: [facility] 12-21-2013 diphtheria and tetan us toxoids, adsorbed for pediatric use Sylvia Gross AWS SOLUTION ARCHITECT.LEAD SYSTEMS DEVELOPER Work Phone: [facility] 12-21-2013 haemophilus influenz ae type b vaccine, PRP-OMP conjugate Sylvia Gross AWS SOLUTION ARCHITECT.LEAD SYSTEMS DEVELOPER Work Phone: [facility] 12-21-2013 hepatitis A and hepa titis B vaccine Sylvia Gross AWS SOLUTION ARCHITECT.LEAD SYSTEMS DEVELOPER Work Phone: [facility] 12-21-2013 influenza, injectabl e, quadrivalent, preservative free Sylvia Gross AWS SOLUTION ARCHITECT.LEAD SYSTEMS DEVELOPER Work Phone: [facility] 12-21-2013 pneumococcal conjuga te vaccine, 13 valent Sylvia Gross AWS SOLUTION ARCHITECT.LEAD SYSTEMS DEVELOPER Work Phone: [facility] 12-21-2013 poliovirus vaccine, inactivated Sylvia Gross AWS SOLUTION ARCHITECT.LEAD SYSTEMS DEVELOPER Work Phone: [facility] 10-14-2013 haemophilus influenz ae type b vaccine, PRP-OMP conjugate Sylvia Gross AWS SOLUTION ARCHITECT.LEAD SYSTEMS DEVELOPER Work Phone: [facility] 10-14-2013 hepatitis A and hepa titis B vaccine Sylvia Gross AWS SOLUTION ARCHITECT.LEAD SYSTEMS DEVELOPER Work Phone: [facility] 10-14-2013 Meningococcal Groups C and Y and Haemophilus b Tetanus Toxoid Conjugate Vaccine Sylvia Gross AWS SOLUTION ARCHITECT.LEAD SYSTEMS DEVELOPER Work Phone: [facility] 10-14-2013 pneumococcal conjuga te vaccine, 13 valent Sylvia Gross AWS SOLUTION ARCHITECT.LEAD SYSTEMS DEVELOPER Work Phone: [facility] 10-14-2013 poliovirus vaccine, inactivated Sylvia Gross AWS SOLUTION ARCHITECT.LEAD SYSTEMS DEVELOPER Work Phone: [facility] 10-14-2013 tetanus toxoid, redu jessica diphtheria toxoid, and acellular pertussis vaccine, adsorbed Sylvia Gross AWS SOLUTION ARCHITECT.LEAD SYSTEMS DEVELOPER Work Phone: [facility] 09-01-2010 hepatitis B vaccine, adult dosage Sylvia Gross AWS SOLUTION ARCHITECT.LEAD SYSTEMS DEVELOPER Work Phone: [facility] 04-04-2010 hepatitis B vaccine, adult dosage Sylvia Gross AWS SOLUTION ARCHITECT.LEAD SYSTEMS DEVELOPER Work Phone: [facility] 03-04-2010 hepatitis B vaccine, adult dosage Sylvia Gross AWS SOLUTION ARCHITECT.LEAD SYSTEMS DEVELOPER Work Phone: [facility] 11-11-2007 hepatitis B vaccine, pediatric or pediatric/adolescent dosage Sylvia Gross AWS SOLUTION ARCHITECT.LEAD SYSTEMS DEVELOPER Work Phone: [facility] 10-14-2007 hepatitis B vaccine, pediatric or pediatric/adolescent dosage Sylvia Gross AWS SOLUTION ARCHITECT.LEAD SYSTEMS DEVELOPER Work Phone: [facility] Payers Date Payer Category Payer Self-pay [id number] 2020 Medicaid MEDICAID [id number] MEDICAID [id number] 2020-Present [phone] [address] [place] [address] Medicaid [id number] 2020 Medicaid [id number] 2014 Medicare MEDICARE MEDICAR E A AND B [id number] 2014-Present [phone] [address] [address] [place] [address] Medicare [id number] 2014 Medicare [id number] 1982 Unknown [id number] 1982 Unknown [id number] 1982 Unknown [id number] 1982 Unknown [id number] 1982 Unknown [id number] 1982 Unknown [id number] 1982 Unknown [id number] .[id number] 1982 Unknown [id number] 1959 Medicaid [id number] 1957 Medicare [id number] 1959 Medicare [id number] Unknown [id number] Social History Date Type Detail Facility Start: 01-28-2012 End: 12-31-2022 Tobacco smoking status NHIS Ex-smoker [facility] End: 01-18-2012 History of tobacco use Current smoker [facility] End: 01-18-2012 History of tobacco use Cigarette Smoker [facility] Start: 01-28-2012 End: 12-31-2022 Tobacco use and exposure Smokeless tobacco non-user [facility] Start: 03-15-2021 End: 06-28-2023 Alcohol intake Current drinker of alcohol (finding) [facility] Start: 03-15-2021 End: 07-18-2022 Alcohol intake [facility] Start: 11-18-2019 History SDOH Alcohol Frequency 2 [facility] Start: 11-18-2019 History SDOH Alcohol Std Drinks 1 [facility] Start: 03-18-2017 History SDOH Alcohol Comment 2 drinks per month [facility] Start: 1980 Sex Assigned At Female [facility] Start: 03-20-2021 End: 12-27-2021 Exposure to SARS-CoV-2 (event) Not sure [facility] Start: 01-06-2022 End: 01-16-2022 Exposure to SARS-CoV-2 (event) Unable to assess [facility] Start: 07-18-2022 End: 08-01-2022 Tobacco use panel [facility] Adult Depression Screening Assessment 0 [facility] Start: 04-17-2021 Gender identity Identifies as female gender (finding) [facility] Start: 04-17-2021 Sexual orientation Heterosexual (angely skinner) [facility] How often to you hav e a drink containing alcohol? Monthly or less [facility] How many standard dr inks containing alcohol do you have on a typical day? 1 or 2 [facility] How often do you hav e 6 or more drinks on 1 occasion? Never [facility] History of tobacco use Passive smoker [facility] Start: 1980 Sex Assigned At Not on file [facility] Medical Equipment Procedure Code Equipment Code Equipment Origin al Text Equipment Identifier Dates Port Inf 1 Lum Attach Cath - [id number] Start: 01-31-2012 Comment on above: Description: BARD ROXANN SÁNCHEZ Clinical Notes 03-15-2017 to 07-19-2023 Elis Carrera RT(R) - 07/19/2023 1:20 PM EDTPatient InstructionsJuan Francisco Hutchinson APRN.LEAD SYSTEMS DEVELOPER - 2023 10:00 AM EDCynthia Martin CCC-OUTPATIENT PHYSICAL THERAPIST - 07/10/2023 2:22 PM EDTPatient Instructions Note Date & Type Note Facility 07-19-2023 History of Presen t illness Narrative Radiology Service Progress Note PATIENT NAME: Celso Ptots DATE OF SERVICE: July 19, 2023 TIME: 1:39 PM PATIENT IDENTITY VERIFICATION COMPLETED USING TWO (2) IDENTIFIERS: Name and Date of confirmed by patient verbally. FALL SCREENING: Has the patient had 2 falls in the last year or 1 fall with injury or currently using an Ambulatory Assistive Device (Walker, Cane, Wheelchair, Crutches, etc.)? No PATIENT GENDER DATA: Male PATIENT RELEVANT IMPLANT DATA REVIEWED: Not Applicable PATIENT PRESENTS WITH AN IMPLANTABLE OR ATTACHED CRYSTAL ATTACHER: No RADIOLOGY DEPARTMENT: General X-ray: Exam(s) Completed: GI/ Procedure(s): Esophogram with barium contrast PERIPHERAL IV DATA: Not applicable SIGNED BY: RT Beverley(Junior) July 19, 2023 1:39 PM documented in this encounter [facility] 2023 Instructions Juan Francisco Hutchinson APRN.PEDRO - 2023 10:48 AM EDT Juan Francisco Hutchinson CNP Department of Palliative and Supportive Care Palliative Care - Specialty services in symptom management and support For questions or prescription refills, call: [phone] Saturday - Saturday 9AM-5PM ERVIN Corrales, RN - Test Deck Supervisor Please call 3-5 days in advance for medication refills Evenings, Weekends, Holidays: [phone] (ask for palliative medicine on-call provider) For appointments, cancellations or reschedule, call: [phone] documented in this encounter [facility] 2023 History of Presen t illness Narrative PALLIATIVE MEDICINE PROGRESS NOTE SERVICE DATE: 2023 Primary Site of Disease/Medical Illness: Hodgkin Lymphoma - CINDI CHIEF COMPLAINT: follow up on pain and fatigue PERTINENT MEDICAL HISTORY: Celso Potts is a [...] complete remission and is now under surveillance. PET/CT in 01/2023 and 05/2023 remained without evidence of disease. Palliative care is following for symptom control needs. Subjective Last pall care visit 05/16/23 PET in May showed CINDI Followed up with pulmonology - inhaler changes, levaquin for sputum culture positive for steno bacteria Working with speech therapy regarding dysphagia. Breathing is better. Overwhelmed by all the appointments. Goes to many other specialists with each appointment. Voice is frustrating. Stopped inhalers to see if that helped - didn't help, breathing was worse ENT didn't see anything on scope. Blood sugar is higher than normal 110-140 PCP did A1C 5.8 Dry mouth is troublesome. Drinking so much, urinating so much Biotene hasn't been helpful. Barium swallow Has not seen rheumatology yet Feels pain in joints and chest ongoing. Feels like if she was aloud to take ibuprofen, it would help her more. States she is no longer taking baclofen States she is only taking cyclobenzaprine as needed when she has muscle cramps severely. Taking oxycodone IR 10 mg 4 times during the day while awake. Modified ESAS ([place] Symptom Assessment Scale) Information Provided By: Patient Pain: Moderate Nausea: None Loss of Appetite: None Constipation: None Shortness of Breath: None Drowsiness: None Tiredness: Moderate Depression: None Anxiety: Mild How you feel overall: Fair Objective ECOG PERFORMANCE STATUS: 0- Fully active, able to carry on all pre-disease performance w/o restriction. PHYSICAL EXAMINATION: Vital signs: BP 117/64 Pulse 93 Temp 36.6 C (97.9 F) LMP 11/18/2012 SpO2 97% Last 1 Encounter Temp Readings: Date: Temp: Temp Src: 06/13/2023 36.8 C (98.3 F) Temporal Last 1 Encounter Resp Readings: Date: Resp: 06/10/2023 18 Last 1 Encounter Pulse Readings: Date: Pulse: 06/28/2023 93 Last 1 Encounter BP Readings: Date: BP: 06/28/2023 118/84 General Appearance: No apparent distress and well nourished, well appearing Skin: No jaundice and No rash Lungs: unlabored effort, no conversational dyspnea. Musculoskeletal: No edema, No gross deformity, and no joint swelling or redness Neuro: Alert and oriented to time place and person and gait normal Psych: Well groomed, Affect congruent with mood, and Good eye contact DATA: Diagnostic tests reviewed for today's visit: Most recent labs and imaging results. Estimated Creatinine Clearance: 133.8 mL/min (based on SCr of 0.74 mg/dL). Opioid Management: Yes Indication for Opioid Prescribing: Chronic, Non-cancer pain ORT-OUD Score: 1 A score of [...] reviewed? Yes How much does pain impede patient s [...] Prescribed Morphine Equivalent Daily Dose (MEDD): Yes < 50 MEDD OARRS Checked: PDMP website checked and validated. All prescriptions have been APPROPRIATELY filled. No suspicious activity was identified. 2023 by Juan Francisco Hutchinson APRN.LEAD SYSTEMS DEVELOPER Urine Screen Lab Results Component Value Date UAMPH Negative 02/24/2021 UBARB2 Negative 02/24/2021 UBENZ Negative 02/24/2021 UQBUPRE <20 03/07/2023 UQNORBUP <20 03/07/2023 UCOC2 Negative 02/24/2021 UQCANN <16 03/07/2023 UOPI Negative 02/24/2021 UOXYC Negative 02/24/2021 UPCP Negative 02/24/2021 UTHC Negative 02/24/2021 UETOH <11 02/24/2021 Urine Panel: Lab Results Component Value Date Cannabinoid Quant, Urine <16 03/07/2023 Cannabinoid Quant, Urine <16 02/24/2021 Benzoylecognine Quant, Urine <24 02/24/2021 Benzoylecgonine Quant, Urine <24 03/07/2023 6-Acetylmorphine Quant, Urine <5 03/07/2023 6-Acetylmorphine Quant, Urine <5 02/24/2021 Amphetamine Quant, Urine <5 03/07/2023 Amphetamine Quant, Urine <5 02/24/2021 Methamphetamine Quant, Urine <8 03/07/2023 Methamphetamine Quant, Urine <8 02/24/2021 Buprenorphine Quant, Urine <20 03/07/2023 Buprenorphine Quant, Urine <20 02/24/2021 Norbuprenorphine Quant, Urine <20 03/07/2023 Norbuprenorphine Quant, Urine <20 02/24/2021 Methadone Quant, Urine <16 03/07/2023 Methadone Quant, Urine <16 02/24/2021 EDDP Quant, Urine <6 03/07/2023 EDDP Quant, Urine <6 02/24/2021 Tramadol Quant, Urine <25 03/07/2023 Tramadol Quant, Urine <25 02/24/2021 Desmethyltramadol Quant, Urine <20 03/07/2023 Desmethyltramadol Quant, Urine <20 02/24/2021 Fentanyl Quant, Urine <6 03/07/2023 Fentanyl Quant, Urine <6 02/24/2021 Norfentanyl Quant, Urine <6 03/07/2023 Norfentanyl Quant, Urine <6 02/24/2021 Codeine Quant, Urine <11 03/07/2023 Codeine Quant, Urine <11 02/24/2021 Morphine Quant, Urine <10 03/07/2023 Morphine Quant, Urine <10 02/24/2021 Dihydrocodeine Quant, Urine <5 03/07/2023 Dihydrocodeine Quant, Urine <5 02/24/2021 Hydrocodone Quant, Urine <8 03/07/2023 Hydrocodone Quant, Urine <8 02/24/2021 Oxycodone Quant, Urine 2,841 (H) 03/07/2023 Oxycodone Quant, Urine <10 02/24/2021 Hydromorphone Quant, Urine <5 03/07/2023 Hydromorphone Quant, Urine <5 02/24/2021 Oxymorphone Quant, Urine 3,871 (H) 03/07/2023 Oxymorphone Quant, Urine <5 02/24/2021 Creatinine,Ur Pain Ocasio 70.2 02/24/2021 Urine pH, Pain Ocasio 6.3 02/24/2021 Specific Kelley,Ur Pain Ocasio 1.012 02/24/2021 Oxidants,Ur 46 02/24/2021 Specimen Quality, Ur Pain Ocasio Specimen quality results within acceptable limits. 05/03/2014 Assessment & Plan (Z51.5) Encounter for palliative care (primary encounter diagnosis) - reviewed role of palliative care, contact info, and reasons to call. 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 She has also experienced significant muscle cramps which limited her mobility. - current pain is in joints and chest associated to ?psoriatic arthritis and radiation fibrosis. Muscle cramps happening only intermittently. She has now developed severe xerostomia and significant fatigue. Discussed tapering medications that would cause such side effects. She is agreeable. - d/c baclofen (states she hasn't been taking) - reduce cyclobenzaprine 10 mg BID PRN for muscle cramps (has recently been taking only PRN per her report) - reduce oxycodone 10 mg Q8H PRN with the intention to continue to wean over the next several weeks. (counseled on use of benzo and opioids together and increased risk of respiratory depression; narcan previously prescribed) - advised she schedule with Rheumatology to have further work up given history of psoriatic arthritis and new severe dry mouth (?sicca like presentation) - suggest routine use of APAP 1000 mg TID - did not tolerate transition to pregabalin - continue gabapentin 600 mg TID (consider reduction - currently prescribed by PCP) - start Voltaren gel QID to joints - previously discussed duloxetine for co management of anxiety also - declined. (F43.22) Adjustment disorder with anxious mood - long standing history of anxiety, now with cancer in remission she is having a hard time transitioning back into normal daily routines with constant worry of recurrence. Now with increased left chest pain (unclear etiology) and transient cervical lymph node palpable per her report - now resolved. - did not schedule with psychology - she is taking lorazepam per PCP order. Has tapered dosing to only HS - discussed if anxiety does not improve after next scan, will consider SSRI vs SNRI addition. She is agreeable (R53.83) Fatigue, unspecified type - likely multifactorial with polypharmacy and now proven adrenal insufficiency. She was unable to tolerate oral hydrocortisone. - missed endocrinology appointment 2/2 hospitalization. She will call to reschedule. Medical Decision Making: Problems: Moderate: 2+ stable chronic illnesses Risk: High: Drug therapy requiring intensive monitoring Medical Decision Making Level: 4 - Moderate Some elements copied from my note on 05/16/23, the elements have been updated and all reflect current decision making from today, 2023. Next Visit: 4 Weeks via a virtual visit Juan Francisco Hutchinson APRN.LEAD SYSTEMS DEVELOPER 2023 6:35 AM This note may have been partially generated using the [employer] voice recognition system. While every effort was made to correct voice recognition errors, kindly be aware that some errors may occasionally occur. documented in this encounter [facility] 07-10-2023 Note HNO ID: [id number] Author: CYNTHIA GUAJARDO CCC-OUTPATIENT PHYSICAL THERAPIST Service: ? Author Type: Speech Language Pathologist Type: Progress Notes Filed: 07/10/2023 14:27 Note Text: -------- Summary: MBSS -------- Start of Care Date: 07/10/23 Onset Date: 05/22/23 [facility] MODIFIED BARIUM SWALLOW PLAN OF CARE: Impression: Evidence of: Functional oropharyngeal phases of swallow, without identified risk for aspiration, Concern for possible esophageal impairment An elevated risk for aspiration: No Swallow Efficiency: Preserved Patient presents clinically with functional oropharyngeal swallowing abilities and appears safe to continue an oral diet at this time. Patient does not appear to be at an increased risk for developing pulmonary complications related to swallowing abilities. OUTPATIENT PHYSICAL THERAPIST provided reflux precaution handout and contact information to schedule esophagram. OUTPATIENT PHYSICAL THERAPIST recommends follow up with GI given noted esophageal retention, symptoms, and history of radiation to chest area. Patient may also benefit from outpatient voice therapy-ENT PA updated. RECOMMENDATION: Diet Recommendations: Regular Consistency Thin Liquids IDDSI Level 0 Swallowing Precautions Recommendations: Anti-Reflux precautions Rigid Oral Hygiene Recommended Consults: GI, Esophagram (ordered by ENT, provided contact number to schedule) Goals for Modified Barium Swallow: created for 07/10/2023 only. The patient will be able to demonstrate adequate return of knowledge of today's fluoroscopic assessment and recommendations to maximize overall safety with oral intake. (baseline = no knowledge). GOAL MET 07/10/23 SUBJECTIVE: Celso Potts is a 42 year old female seen today for a Modified Barium Swallow (MBS) Study. Patient was recently seen by ENT PA (see note from 05/22/23) and referred for concerns of dysphagia. Patient reports difficulty initiating as swallow, globus sensation per pills and solids. Patient also has concerns for dry mouth-is utilizing Biotene products with some success. Patient reports voice changes marked by a harsh and raspy vocal quality. Patient denies the following: difficulty with liquids, difficulty chewing, GERD symptoms, abnormal bowel movements, unintentional weight loss, N/V. Patient reports symptoms for about a year that are now worsening. Pertinent PMH: HL s/p chemoradiation, Auto BMT in 2013, pulmonary embolism, PjP pneumonia, hypoxic respiratory failure in 2014, psoriatic arthritis OBJECTIVE: MEASURES WITH LEVEL OF FUNCTION: Instrumental Swallow Assessment Type: Modified Barium Swallow Study Modified Barium Swallow Views: Anterior-posterior position, Lateral position Position Of Patient During Assessment: Upright In Chair, Standing Barium Consistencies Provided: Thin Liquids, Mildly Thick Liquids ([place] Thick), Pureed Solids, Soft and Bite-Sized Solids, Regular Solids, 13mm Tablet Oral Phase: As Follows Lip Closure: No labial escape/anterior loss of bolus Tongue Control During Bolus Hold: Cohesive bolus between tongue to palatal seal Bolus Preparation/Mastication: Timely and efficient mastication skills Bolus Transport/Lingual Motion: Brisk tongue motion for A-P movement of the bolus Oral Residue: Complete oral clearance Initiation Of Pharyngeal Swallow: Bolus head at vallecular pit Pharyngeal Phase: As Follows Soft Palate Elevation: No bolus between soft palate/pharyngeal wall Laryngeal Elevation: Complete superior movement of thyroid cartilage with contact of arytenoids to epiglottic petiole Anterior Hyoid Excursion: Complete anterior movement Epiglottic Movement: Complete inversion Laryngeal Vestibular Closure/Height of the Swallow: Complete - no air/contrast in laryngeal vestibule Pharyngeal Stripping Wave: Complete Pharyngeal Contraction (A/P View Only): Complete Pharyngoesophageal Segment Opening: Complete distension and complete duration/no obstruction of flow of bolus Tongue Base Retraction: No bolus between tongue base and posterior pharyngeal wall Pharyngeal Residue: Complete pharyngeal clearance Esophageal Clearance In An Upright Position: Esophageal retention with retrograde flow below the pharyngoesophageal segment Penetration-Aspiration Scale for MBSS: Completed Level 1-Material does not enter airway : Regular Consistency, Soft and Bite-Sized IDDSI Level 6, Pureed IDDSI Level 4, Mildly Thick Liquids IDDSI Level 2 ([place] Thick), Thin Liquids IDDSI Level 0 Education: Education Learning Preferences: Explanation Barriers: None TREATMENT: Performed Modified Barium Swallowing Study (11818). Evaluation: Modified Barium Swallow Evaluation (22748) Education regarding findings from today's Modified Barium Swallowing study (fluoroscopic study) and suggested plans for tk (more content not included)... [facility] 07-10-2023 Note HNO ID: [id number] Author: ROSENDO LOW RT(R) Service: Radiology Author Type: Technologist Type: Progress Notes Filed: 07/10/2023 14:05 Note Text: Radiology Service Progress Note PATIENT NAME: Celso Potts DATE OF SERVICE: July 10, 2023 TIME: 2:04 PM PATIENT IDENTITY VERIFICATION COMPLETED USING TWO (2) IDENTIFIERS: Name and Date of confirmed by patient verbally. FALL SCREENING: Has the patient had 2 falls in the last year or 1 fall with injury or currently using an Ambulatory Assistive Device (Walker, Cane, Wheelchair, Crutches, etc.)? No PATIENT GENDER DATA: Female. status: : No status: NO. PATIENT RELEVANT IMPLANT DATA REVIEWED: Not Applicable PATIENT PRESENTS WITH AN IMPLANTABLE OR ATTACHED CRYSTAL ATTACHER: No RADIOLOGY DEPARTMENT: General X-ray: Exam(s) Completed: GI/ Procedure(s): Modified barium swallow with barium contrast PERIPHERAL IV DATA: Not applicable SIGNED BY: RT Jasvir(R) July 10, 2023 2:04 PM [facility] 07-10-2023 History of Presen t illness Narrative Summary: MBSS Start of Care Date: 07/10/23 Onset Date: 05/22/23 [facility] MODIFIED BARIUM SWALLOW PLAN OF CARE: Impression: Evidence of: Functional oropharyngeal phases of swallow, without identified risk for aspiration, Concern for possible esophageal impairment An elevated risk for aspiration: No Swallow Efficiency: Preserved Patient presents clinically with functional oropharyngeal swallowing abilities and appears safe to continue an oral diet at this time. Patient does not appear to be at an increased risk for developing pulmonary complications related to swallowing abilities. OUTPATIENT PHYSICAL THERAPIST provided reflux precaution handout and contact information to schedule esophagram. OUTPATIENT PHYSICAL THERAPIST recommends follow up with GI given noted esophageal retention, symptoms, and history of radiation to chest area. Patient may also benefit from outpatient voice therapy-ENT PA updated. RECOMMENDATION: Diet Recommendations: Regular Consistency Thin Liquids IDDSI Level 0 Swallowing Precautions Recommendations: Anti-Reflux precautions Rigid Oral Hygiene Recommended Consults: GI, Esophagram (ordered by ENT, provided contact number to schedule) Goals for Modified Barium Swallow: created for 07/10/2023 only. The patient will be able to demonstrate adequate return of knowledge of today's fluoroscopic assessment and recommendations to maximize overall safety with oral intake. (baseline = no knowledge). GOAL MET 07/10/23 SUBJECTIVE: Celso Potts is a 42 year old female seen today for a Modified Barium Swallow (MBS) Study. Patient was recently seen by ENT PA (see note from 05/22/23) and referred for concerns of dysphagia. Patient reports difficulty initiating as swallow, globus sensation per pills and solids. Patient also has concerns for dry mouth-is utilizing Biotene products with some success. Patient reports voice changes marked by a harsh and raspy vocal quality. Patient denies the following: difficulty with liquids, difficulty chewing, GERD symptoms, abnormal bowel movements, unintentional weight loss, N/V. Patient reports symptoms for about a year that are now worsening. Pertinent PMH: HL s/p chemoradiation, Auto BMT in 2013, pulmonary embolism, PjP pneumonia, hypoxic respiratory failure in 2014, psoriatic arthritis OBJECTIVE: MEASURES WITH LEVEL OF FUNCTION: Instrumental Swallow Assessment Type: Modified Barium Swallow Study Modified Barium Swallow Views: Anterior-posterior position, Lateral position Position Of Patient During Assessment: Upright In Chair, Standing Barium Consistencies Provided: Thin Liquids, Mildly Thick Liquids ([place] Thick), Pureed Solids, Soft and Bite-Sized Solids, Regular Solids, 13mm Tablet Oral Phase: As Follows Lip Closure: No labial escape/anterior loss of bolus Tongue Control During Bolus Hold: Cohesive bolus between tongue to palatal seal Bolus Preparation/Mastication: Timely and efficient mastication skills Bolus Transport/Lingual Motion: Brisk tongue motion for A-P movement of the bolus Oral Residue: Complete oral clearance Initiation Of Pharyngeal Swallow: Bolus head at vallecular pit Pharyngeal Phase: As Follows Soft Palate Elevation: No bolus between soft palate/pharyngeal wall Laryngeal Elevation: Complete superior movement of thyroid cartilage with contact of arytenoids to epiglottic petiole Anterior Hyoid Excursion: Complete anterior movement Epiglottic Movement: Complete inversion Laryngeal Vestibular Closure/Height of the Swallow: Complete - no air/contrast in laryngeal vestibule Pharyngeal Stripping Wave: Complete Pharyngeal Contraction (A/P View Only): Complete Pharyngoesophageal Segment Opening: Complete distension and complete duration/no obstruction of flow of bolus Tongue Base Retraction: No bolus between tongue base and posterior pharyngeal wall Pharyngeal Residue: Complete pharyngeal clearance Esophageal Clearance In An Upright Position: Esophageal retention with retrograde flow below the pharyngoesophageal segment Penetration-Aspiration Scale for MBSS: Completed Level 1-Material does not enter airway : Regular Consistency, Soft and Bite-Sized IDDSI Level 6, Pureed IDDSI Level 4, Mildly Thick Liquids IDDSI Level 2 ([place] Thick), Thin Liquids IDDSI Level 0 Education: Education Learning Preferences: Explanation Barriers: None TREATMENT: Performed Modified Barium Swallowing Study (06181). Evaluation: Modified Barium Swallow Evaluation (26855) Education regarding findings from today's Modified Barium Swallowing study (fluoroscopic study) and suggested plans for treatment were provided to the patient through verbal / written instruction, images and/or demonstration. Patient was able to demonstrate understanding of education provided this date. Billing: Modified Barium Swallow (80159) Total time: 25 minutes Cynthia Guajardo CCC-OUTPATIENT PHYSICAL THERAPIST documented in this encounter [facility] 07-10-2023 History of Presen t illness Narrative Radiology Service Progress Note PATIENT NAME: Celso Potts DATE OF SERVICE: July 10, 2023 TIME: 2:04 PM PATIENT IDENTITY VERIFICATION COMPLETED USING TWO (2) IDENTIFIERS: Name and Date of confirmed by patient verbally. FALL SCREENING: Has the patient had 2 falls in the last year or 1 fall with injury or currently using an Ambulatory Assistive Device (Walker, Cane, Wheelchair, Crutches, etc.)? No PATIENT GENDER DATA: Female. status: : No status: NO. PATIENT RELEVANT IMPLANT DATA REVIEWED: Not Applicable PATIENT PRESENTS WITH AN IMPLANTABLE OR ATTACHED CRYSTAL ATTACHER: No RADIOLOGY DEPARTMENT: General X-ray: Exam(s) Completed: GI/ Procedure(s): Modified barium swallow with barium contrast PERIPHERAL IV DATA: Not applicable SIGNED BY: RT Jasvir(R) July 10, 2023 2:04 PM documented in this encounter [facility] 06-28-2023 History of Presen t illness Narrative Images from the original note were not included. 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 She has history of HL status post chemoradiation, Auto BMT In 2013, pulmonary embolism, PjP pneumonia, hypoxic respiratory failure in 2014 We had last met about about 3 weeks ago when she was having significant cough and dyspnea issues. She had been experiencing respiratory issues for the past 3 months. She was advised to get sputum micro analysis, inhalers changed to Trelegy and levaquin was advised Since the prior visit, she tells me she feels much better Today is the last day of levaquin course( took it for 10 days) She tells me since the Pneumonia she has not recovered fully She has take 3 course of antibiotics and steroids since March. She noted she did better when she would be on Abx and steroid, and symptoms re surged after completing the course. She is on Trelegy since 3 weeks, She is on Flonase and Astelin nasal sprays for nasal symptoms. She is on albuterol MDI that she hasn't used it since she doesn't feel it's helped No longer having chest pain Currently, she reports that her sinuses have been out of control. She has a hoarse voice. She has seen ENT providers for the dysphonia. She was told she has small ulcers on vocal cord She is on PPI, and planned to see the ENT for follow up in 2 -3 weeks REVIEW OF SYSTEMS GENERAL: No unintentional weight loss, Fatigue, or fever HEENT: Negative for frequent or significant headaches, No changes in hearing or vision, no nose bleeds or other nasal problems . + post nasal drip. Hoarseness of voice RESPIRATORY: + cough and dyspnea - overall improved CARDIOVASCULAR: Negative for chest pain, leg swelling [...] papillomavirus (HPV) DNA test positive 09/28/2014 BP 118/84 Pulse 93 LMP 11/18/2012 SpO2 100% PHYSICAL EXAM General appearance: well appearing, alert, in no acute distress Nose/Sinuses: mucosa normal, no drainage or sinus tenderness Oropharynx: oropharynx normal, no thrush Respiratory: lungs clear to auscultation, slightly decreased on left, No wheezing, rhonchi, rales unlabored on room air negative findings: no chest deformities noted Cardiovascular: RRR S1 normal, S2 normal DATA: I personally reviewed all data noted PFT: SPIROMETRY - BASELINE AND POST DILATOR ([id number]) - ordered on 03/28/23 Impression: Spirometry shows no obstruction. The reduced FVC suggests restriction. Recommend lung volumes if clinically indicated. There is no significant bronchodilator response. The diffusing capacity is moderately reduced. The diffusing capacity independent of alveolar volume (kCO), is normal. The presence of a reduced lung diffusion capacity - that normalizes when measured independent of alveolar volume (kCO) is consistent with a nonparenchymal disorder but does not rule out parenchymal or pulmonary vascular disorder. Direct Flex laryngoscopy note reviewed from ENT 05/22/23 PROCEDURE: Diagnostic Flexible Laryngoscopy Indication: Dysphagia, hoarseness, hyperactive gag Consent: Verbal consent obtained. Risks, benefits, alternatives, and expectations were explained; patient consents to procedure. Clinician: Loy Merino PA-C Anesthesia: The patient was sprayed with 2% topical lidocaine and 0.5% phenylephrine. Findings: A flexible fiberoptic laryngoscope was passed through the patient's nares. The nasal cavities, nasopharynx, oropharynx, hypopharynx and larynx were examined. Septum: Midline, no perforations Nasal cavity: grossly unremarkable, no lesions/masses/polyps/discharge, turbinates normal in size Naso-/Bernard-/Hypopharynx: nasopharynx and oropharynx were normal without any lesions or masses visualized. No masses or lesions were visualized at the base of tongue, vallecula, epiglottis, aryepiglottic folds, pyriform sinuses, and lateral pharyngeal prakash. There is cobblestoning of posterior pharyngeal wall, post cricoid and arytenoid edema and erythema, and hyperemia of true vocal cords. True vocal fold movement was intact bilaterally. No lesions visualized. The patient's airway was widely patent with no evidence of obstruction Patient tolerated the procedure well and there were no complications. Findings were explained to the patient. 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 bronchiectasis on left Comment:Cough and recurrent URI/ LRI Plan: Overall improved Continue nasal sprays Continue PPI Continue Trelegy once daily Rinse mouth well after after every use Complete Levaquin course PET noted, new left sided pleural effusions, small in size, would get USG chest to look at characteristic of fluid No tap at this time F/u with me in September as scheduled Summer Carver MD, [facility] [place] [facility] [place] documented in this encounter [facility] 06-14-2023 Telephone encount er Note Spoke to patient and scheduled Cardiology appointment with Dr. Elliott at [facility] in [place] on 07/12/2023 with a Chest US same day prior also at [facility] in [place]. Patient added to Dr. Carver's schedule on 06/28/2023 at [facility] and added to wait list as well. Patient agreeable to all appointments. [facility] 06-14-2023 Miscellaneous Notes Formattin g of this note might be different from the original. Spoke to patient and scheduled Cardiology appointment with Dr. Elliott at [facility] in [place] on 07/12/2023 with a Chest US same day prior also at [facility] in [place]. Patient added to Dr. Carver's schedule on 06/28/2023 at [facility] and added to wait list as well. Patient agreeable to all appointments. Spoke with patient and advised of message below. Patient verbalized understanding. Please call patient to help schedule as per below. Please let Celso know I've sent her a message with Dr. Carver's recommendations, then transfer to scheduling for cardiology referral and US chest. Ms. Potts also needs to be added onto Dr. Carver's schedule at [place] on Saturday06/28/23 at 11 am (it is a hospital day for her but adding her on per Dr. Carver). Dr. Carver would also like her put on the cancellation list for a sooner appt. CC PCP Radha Rick documented in this encounter [facility] 06-14-2023 Telephone encount er Note Spoke with patient and advised of message below. Patient verbalized understanding. Please call patient to help schedule as per below. [facility] 06-14-2023 Telephone encount er Note Please let Celso know I've sent her a message with Dr. Carver's recommendations, then transfer to scheduling for cardiology referral and US chest. Ms. Potts also needs to be added onto Dr. Carver's schedule at [place] on Saturday06/28/23 at 11 am (it is a hospital day for her but adding her on per Dr. Carver). Dr. Carver would also like her put on the cancellation list for a sooner appt. CC PCP Radha Rick [facility] 06-13-2023 Telephone encount er Note Images from the original note were not included. Received coverage denial letter from [employer] Medication:tiotropium bromide (SPIRIVA RESPIMAT) 2.5 mcg/actuation inhaler PA Status: Denied Please see alternative medications below [facility] 06-13-2023 Miscellaneous Notes Formattin g of this note might be different from the original. Images from the original note were not included. Received coverage denial letter from [employer] Medication:tiotropium bromide (SPIRIVA RESPIMAT) 2.5 mcg/actuation inhaler PA Status: Denied Please see alternative medications below Images from the original note were not included. Received PA request via covermymeds for Spiriva Submitted E-PA Will wait for outcome documented in this encounter [facility] 06-13-2023 Telephone encount er Note Images from the original note were not included. Received PA request via covermymeds for Spiriva Submitted E-PA Will wait for outcome [facility] 06-13-2023 History of Presen t illness Narrative Images from the original note were not included. . [facility] Follow-Up Clinic Note Ms. Potts is a 42 year old female who presents to the [facility] [place] for follow up of ongoing bronchitis symptoms. Patient's primary guest house manager is Dr. Carver. Last office visit was 04/19/23 with me; HFU visit for influenza A PNA. 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 Former smoker. INTERVAL HPI/ROS Today Ms. Potts reports ongoing pulmonary issues since our last visit together on 04/19/23. She has had multiple visits with [facility] and her PCP for ongoing chest tightness, wheezing, productive cough with thick green sputum, headaches, and dyspnea above her usual baseline which continued to worsen despite treatment as listed below. No difficulty with mucus expectoration. Using her acapella on a routine basis. No fever, chills, GI symptoms. For the last 3 days her symptoms have plateaued. Summary of recent treatment from all providers: 04/07 amoxicillin x 3 days post ICU/hospital discharge 04/09 prednisone 40 mg / 12-day taper 04/18 Zpak x 5 days 04/20 prednisone 40 mg / 12-day taper 05/28 DuoNeb NEB Q4H WA 05/30 prednisone 40 mg x 5 days 05/30 doxycycline x 5 days 06/08 Zpak x 5 days 06/08 prednison 40 mg x 5 days 06/09 levofloxacin 750 mg x 10 days ordered, not taken Current Treatment Plan Breo 200 mcg Albuterol HFA PRN - has, doesn't help Duoneb NEB PRN - 1-2 x/day or she gets very sore thoat Azelastine - not taking since she was using OTC sinus medicine Acapella MMRC Dyspnea Scale 0 Not troubled by breathlessness except on strenuous exercise 1 Short of breath when hurrying or walking up a slight hill 2 Walks slower than contemporaries on the level because of breathlessness, or has to stop for breath when walking at own pace 3 Stops for breath after about 100 m or after a few minutes on the level ground 4 Too breathless to leave the house, or breathless when dressing or undressing Review of systems completed and is negative except as noted above. Social History Tobacco Use Smoking status: Former Years: 10 Types: Cigarettes Quit date: 01/18/2012 Years since quittin.4 Passive exposure: Past Smokeless tobacco: Never Vaping Use Vaping Use: Never used Substance Use Topics Alcohol use: Yes Alcohol/week: 0.0 standard drinks of alcohol Comment: 2 drinks per month Drug use: No PAST MEDICAL HISTORY Diagnosis Date ASCUS favor [...] path VATS MEDIASTINAL LYMPHADENECTOMY 10/2012 left VATS Allergies Chlorhexidine and Sulfa (Sulfonamide Antibiotics) Home Medications oxyCODONE IR (ROXICODONE) 10 mg tab Take 1 tablet by mouth every 6 hours as needed for pain for up to 30 days. levoFLOXacin (LEVAQUIN) 750 mg tablet Take 1 tablet by mouth once daily. ipratropium-albuterol (DUONEB) 0.5 mg-3 mg(2.5 mg base)/3 mL nebu inhale contents of 1 vial ( 3 MILLILITERS ) in nebulizer by mouth and INTO THE LUNGS every 6 hours if needed for wheezing or shortness of breath pantoprazole DR (PROTONIX) 40 mg tablet Take 1 tablet by mouth once daily. baclofen 5 mg tablet take 1 tablet by mouth three times a day fluticasone-vilanterol (BREO ELLIPTA) 200-25 mcg/dose inhaler Inhale 1 Inhalation as instructed once daily. azithromycin (ZITHROMAX Z-RON) 250 mg tablet Two (2) tablets by mouth the first day and then one (1) tablet by mouth daily for 4 days. cyclobenzaprine (FLEXERIL) 10 mg tablet Take 1 tablet by mouth three times a day as needed for muscle spasm. azelastine 0.1% nasal spray Use 1 [place] in each nostril two times a day. prochlorperazine (COMPAZINE) 10 mg tablet take 1 tablet by mouth every 6 hours if needed LORazepam (ATIVAN) 0.5 mg take 1 tablet by mouth four times a day if needed for anxiety XARELTO 10 mg tablet take 1 tablet by mouth once daily Biotin 2,500 mcg cap mirtazapine (REMERON) 30 mg tablet Take 30 mg by mouth daily at bedtime. fluocinonide (LIDEX) 0.05 % cream apply to affected area ON THE RIGHT HAND and legs TWICE A DAY levothyroxine (SYNTHROID) 75 mcg tablet Take 1 tablet by mouth once daily. triamcinolone acetonide (KENALOG) 0.1 % ointment APPLY TO THE AFFECTED AREA TWICE A DAY FOR 5 DAYS traZODone (DESYREL) 50 mg tablet Take 100 mg by mouth daily at bedtime. Lactobac no.41/Bifidobact no.7 (PROBIOTIC-10 ORAL) Take by mouth. atenolol (TENORMIN) 50 mg tablet take 1 tablet by mouth twice a day CHOLECALCIFEROL, VITAMIN D3, (VITAMIN D3 ORAL) Take 1,000 Units by mouth once daily. Vitamin B Comp and C No.3 (B COMPLEX PLUS VITAMIN C) 07-01-44-5-300 mg cap Take 1 tablet by mouth once daily. PHYSICAL EXAM BP 114/69 Pulse 99 Temp (Src) 98.3 (Temporal) Ht 5' 10.87 (1.80m) Wt 0 lb (0.0kg) SpO2 98[RA]% LMP 11/18/2012 Physical Exam Vitals reviewed. Constitutional: General: She is awake. She is not in acute distress. Appearance: Normal appearance. She is well-developed. She is not ill-appearing. HENT: Head: Normocephalic and atraumatic. Right Ear: External ear normal. Left Ear: External ear normal. Nose: Nose normal. No congestion or rhinorrhea. Right Nostril: No epistaxis. Left Nostril: No epistaxis. Mouth/Throat: Mouth: Mucous membranes are moist. Tongue: Lesions present. Pharynx: Oropharynx is clear. Eyes: General: No scleral icterus. Right eye: No discharge. Left eye: No discharge. Extraocular Movements: Extraocular movements intact. Conjunctiva/sclera: Conjunctivae normal. Cardiovascular: Rate and Rhythm: Normal rate and regular rhythm. Heart sounds: Normal heart sounds. No murmur heard. No gallop. Pulmonary: Effort: Pulmonary effort is normal. No tachypnea, bradypnea, accessory muscle usage, prolonged expiration, respiratory distress or retractions. Breath sounds: Examination of the left-middle field reveals rhonchi. Examination of the left-lower field reveals rhonchi. Rhonchi present. No wheezing or rales. Musculoskeletal: Right lower leg: No edema. Left lower leg: No edema. Skin: General: Skin is warm and dry. Coloration: Skin is not cyanotic, jaundiced or mottled. Findings: No erythema or rash. Nails: There is no clubbing. Neurological: General: No focal deficit present. Mental Status: She is alert. Mental status is at baseline. Psychiatric: Mood and Affect: Mood and affect normal. Behavior: Behavior normal. Behavior is cooperative. DIAGNOSTICS Testing I Reviewed Today: See [facility] for all available results and images. PFT/Procedures No new results. Imaging XR CHEST 2V FRONTAL/LAT - Result Date: 05/31/2023 IMPRESSION: 1. No interval change since 04/19/23. 2. Postradiation changes in the left lung, stable. XR CHEST 2V FRONTAL/LAT - Result Date: 04/21/2023 IMPRESSION: Lungs and pleura: Treated malignancy with postradiation fibrosis which rapidly demarcated traction bronchiectasis again noted in the medial aspect of both upper lobes and superior segments of the lower lobes, left more than right. There are no new consolidations. Suspected minimal smooth left pleural thickening. No pleural effusion. No pneumothorax. PET/CT - DATE OF EXAM: May 20 2023 2:23PM IMPRESSION: HEAD/NECK: * No FDG avid neoplastic process. CHEST: * No FDG avid neoplastic process. * Small left pleural effusion; mildly increased in size in the interim. Otherwise no significant change in the appearance of the chest. ABDOMEN/PELVIS: * No FDG avid neoplastic process. MUSCULOSKELETAL: * No FDG avid neoplastic process. Lab/Micro Latest Ref Rng & Units 06/10/2023 CBC WBC 3.70 - 11.00 k/uL 11.50 RBC 3.90 - 5.20 m/uL 4.63 Hemoglobin 11.5 - 15.5 g/dL 14.6 Hematocrit 36.0 - 46.0 % 44.1 MCV 80.0 - 100.0 fL 95.2 MCH 26.0 - 34.0 pg 31.5 MCHC 30.5 - 36.0 g/dL 33.1 RDW-CV 11.5 - 15.0 % 14.2 Platelet Count 150 - 400 k/uL 312 MPV 9.0 - 12.7 fL 8.8 Baso% % 0.3 Abs Neut (ANC) 1.45 - 7.50 k/uL 8.55 Abs Lymph 1.00 - 4.00 k/uL 2.11 Abs [place] <0.87 k/uL 0.67 Abs Eosin <0.46 k/uL 0.08 Abs Baso <0.11 k/uL 0.03 NRBC /100 WBC 0.0 Latest Ref Rng & Units 06/10/2023 CMP Sodium 136 - 144 mmol/L 142 Potassium 3.7 - 5.1 mmol/L 3.9 Chloride 97 - 105 mmol/L 104 CO2 22 - 30 mmol/L 24 Glucose 74 - 99 mg/dL 137 BUN 7 - 21 mg/dL 19 Creatinine 0.58 - 0.96 mg/dL 0.74 EGFR >=60 mL/min/1.73m 105 Protein, Total 6.3 - 8.0 g/dL 6.6 Albumin 3.9 - 4.9 g/dL 4.1 Calcium 8.5 - 10.2 mg/dL 9.5 Bilirubin, Total 0.2 - 1.3 mg/dL 0.5 AST 13 - 35 U/L 27 ALT 7 - 38 U/L 41 Alkaline Phosphatase 34 - 123 U/L 71 ASSESSMENT & PLAN Bronchitis - ICD9: 490, ICD10: J40 (primary diagnosis) Acute non-recurrent pansinusitis - ICD9: 461.8, ICD10: J01.40 Oral thrush - ICD9: 112.0, ICD10: B37.0 Restrictive lung disease - ICD9: 518.89, ICD10: J98.4 Pleural effusion - ICD9: 511.9, ICD10: J90 Reviewed all acute treatments as outlined above. Will start Spiriva in addition to current Breo in hopes she can decrease need for DuoNeb, which is causing sore throat when used more than once a day. Check sputum culture due to persistent productive coughing after multiple antibiotics, especially given history of PJP pneumonia. Sample cup provided. She will return this to her local [facility] lab. Given the complexity of her ongoing issues, I will reach out to her primary guest house manager Dr. Carver today to help further guide her treatment at this point. I will be in touch with recommendations. Ms. Potts verbalized understanding and is agreeable to this plan. - FLUTICASONE PROPIONATE 50 MCG/ACTUATION NASAL SPRAY,SUSPENSION in addition to azelastine for persistent sinus congestion - FLUCONAZOLE 100 MG TABLET x 7 days for oral thrush - SPIRIVA RESPIMAT 2.5 MCG/ACTUATION SOLUTION FOR INHALATION - RESPIRATORY CULTURE AND STAIN Patient instructed to call our office, PCP, or go to the emergency department for new or worsening problems or symptoms. I spent a total of 53 minutes on the date of the service which included preparing to see the patient, [id number] patient care, completing clinical documentation, performing a medically appropriate examination, counseling and educating the patient/family/caregiver, ordering medications, tests, or procedures, and communicating with other HCPs (not separately reported). Radha Ruano DNP, [employer] SOLUTION ARCHITECT-LEAD SYSTEMS DEVELOPER [facility] documented in this encounter [facility] 06-11-2023 Telephone encount er Note Pt informed of BR message and denies any questions, needs or concerns at this time. Appointment verified. Jeny Nava RN [facility] 06-11-2023 Telephone encount er Note ----- Message from Alexsander Ledezma MD sent at 06/11/2023 12:10 PM EDT ----- Please inform the patient that her IgG levels are normal, would not benefit from infusions. Her TFTs are normal, continue current dose of Synthroid. If still infectious symptoms after completing Z-Ron she should start the Levaquin. We will see her back as scheduled. [facility] 06-11-2023 Miscellaneous Notes Formattin g of this note might be different from the original. Pt informed of BR message and denies any questions, needs or concerns at this time. Appointment verified. Jeny Nava RN ----- Message from Alexsander Ledezma MD sent at 06/11/2023 12:10 PM EDT ----- Please inform the patient that her IgG levels are normal, would not benefit from infusions. Her TFTs are normal, continue current dose of Synthroid. If still infectious symptoms after completing Z-Ron she should start the Levaquin. We will see her back as scheduled. documented in this encounter [facility] 06-10-2023 Telephone encount er Note PDMP website checked and validated. All prescriptions have been APPROPRIATELY filled. No suspicious activity was identified. 06/10/2023 by Juan Francisco Hutchinson APRN.LEAD SYSTEMS DEVELOPER Rx sent Juan Francisco Hutchinson APRN.LEAD SYSTEMS DEVELOPER [facility] 06-10-2023 Miscellaneous Notes Formattin g of this note might be different from the original. PDMP website checked and validated. All prescriptions have been APPROPRIATELY filled. No suspicious activity was identified. 06/10/2023 by Juan Francisco Hutchinson APRN.LEAD SYSTEMS DEVELOPER Rx sent Juan Francisco Hutchinson APRN.LEAD SYSTEMS DEVELOPER Patient requesting refills as follows: Last ordered 05/13/2023. Next scheduled follow up appointment 2023. Requested Prescriptions Pending Prescriptions Disp Refills oxyCODONE IR (ROXICODONE) 10 mg tab 120 tablet 0 Sig: Take 1 tablet by mouth every 6 hours as needed for pain for up to 30 days. Kylie Mosher RN June 10, 2023 documented in this encounter [facility] 06-10-2023 Telephone encount er Note Patient requesting refills as follows: Last ordered 05/13/2023. Next scheduled follow up appointment 2023. Requested Prescriptions Pending Prescriptions Disp Refills oxyCODONE IR (ROXICODONE) 10 mg tab 120 tablet 0 Sig: Take 1 tablet by mouth every 6 hours as needed for pain for up to 30 days. Kylie Mosher RN June 10, 2023 [facility] 06-09-2023 History of Presen t illness Narrative PATIENT NAME: Celso Potts DATE: 06/10/2023 PRIMARY CARE PHYSICIAN: Jose Vail MD OTHER PHYSICIANS: Dr. Cyn Ramires; Dr. Gurpreet Unger; Juan Francisco Hutchinson CNP ([facility] Pall Med), Dr. Jane Del Valle ([facility] Rad Onc), Dr. Summer Carver ([facility] Pulmonary), Dr Jaxson Gamez ([facility] Dermatology) Portions of this encounter note have been copied from my note from 04/16/2023 and has been updated where appropriate, and reflect my current medical decision making from today. CC: This is a 42 year old female with recurrent Hodgkin's disease, seen for scheduled follow-up. INTERIM HISTORY: Since the patient's last visit here she has not felt well due to a variety of symptoms. She has had increasing shortness of breath with chest tightness. Per [facility] pulmonary (Dr. Carver) she was given several different bronchodilators as well as a course of steroids. She believes the bronchodilators have caused throat pain, now with difficulty swallowing. She is scheduled undergo a barium swallow in the near future. She also has had recurrent sinus drainage, hoarse voice, and upper respiratory drainage. She was recently started on Z-Ron per PCP but has not felt much better since. She has had no fevers or other signs of infection. Despite the above she remains very active. She has had no unusual pain. No night sweats or weight loss. Most recent PET scan 05/20/2023 revealed no evidence of disease. MEDICATIONS: ipratropium-albuterol (DUONEB) 0.5 mg-3 mg(2.5 mg base)/3 mL nebu inhale contents of 1 vial ( 3 MILLILITERS ) in nebulizer by mouth and INTO THE LUNGS every 6 hours if needed for wheezing or shortness of breath pantoprazole DR (PROTONIX) 40 mg tablet Take 1 tablet by mouth once daily. oxyCODONE IR (ROXICODONE) 10 mg tab Take 1 tablet by mouth every 6 hours as needed for pain for up to 30 days. baclofen 5 mg tablet take 1 tablet by mouth three times a day fluticasone-vilanterol (BREO ELLIPTA) 200-25 mcg/dose inhaler Inhale 1 Inhalation as instructed once daily. azithromycin (ZITHROMAX Z-RON) 250 mg tablet Two (2) tablets by mouth the first day and then one (1) tablet by mouth daily for 4 days. cyclobenzaprine (FLEXERIL) 10 mg tablet Take 1 tablet by mouth three times a day as needed for muscle spasm. azelastine 0.1% nasal spray Use 1 [place] in each nostril two times a day. prochlorperazine (COMPAZINE) 10 mg tablet take 1 tablet by mouth every 6 hours if needed LORazepam (ATIVAN) 0.5 mg take 1 tablet by mouth four times a day if needed for anxiety XARELTO 10 mg tablet take 1 tablet by mouth once daily Biotin 2,500 mcg cap mirtazapine (REMERON) 30 mg tablet Take 30 mg by mouth daily at bedtime. acyclovir (ZOVIRAX) 400 mg tablet take 1 tablet by mouth twice a day tretinoin (RETIN-A) 0.05 % cream Apply a pea size amount to affected area every other night for 2 weeks then increase to daily as tolerated fluocinonide (LIDEX) 0.05 % cream apply to [...] C No.3 (B COMPLEX PLUS VITAMIN C) 11-69-88-5-300 mg cap Take 1 tablet by mouth [...] 2000 mg in a 24 hour period). ALLERGIES: Chlorhexidine and Sulfa (Sulfonamide Antibiotics) PAST [...] SYSTEMS: As above PHYSICAL EXAM: Vitals: BP 111/72 Pulse 94 Temp 36.1 C (97 F) (Temporal) Resp 18 LMP 11/18/2012 SpO2 98% General appearance: well appearing, alert, in no [...] Normal LABORATORY DATA: Hemoglobin (g/dL) Date Value 06/10/2023 14.6 04/05/2021 15.3 Hematocrit (%) Date Value 06/10/2023 44.1 04/05/2021 45.8 WBC (k/uL) Date Value 06/10/2023 11.50 04/05/2021 8.31 Platelet Count (k/uL) Date Value 06/10/2023 312 04/05/2021 277 RADIOLOGY/OTHER STUDIES: 05/20/2023 PET scan IMPRESSION: HEAD/NECK: * No FDG avid neoplastic process. CHEST: * No FDG avid neoplastic process. * Small left pleural effusion; mildly increased in size in the interim. Otherwise no significant change in the appearance of the chest. ABDOMEN/PELVIS: * No FDG avid neoplastic process. MUSCULOSKELETAL: * No FDG avid neoplastic process. 04/02/2023 Chest x-ray ([facility]) Airspace opacities in the medial lungs could represent aspiration changes and/or pneumonia. 03/20/2023 Echocardiogram The left ventricle is normal in size. There is mild concentric left ventricular hypertrophy. Left ventricular systolic function is normal. EF = 57 5% (2D biplane) - The right ventricle is normal in size. Right ventricular systolic function is normal. - There is moderate (2+) holosystolic mitral valve regurgitation. Regurgitant orifice area (PISA) is 0.13 cm . - There is moderate (2+) aortic valve regurgitation. - Estimated right ventricular systolic pressure is 51 mmHg consistent with moderate pulmonary hypertension. Estimated right atrial pressure is 3 mmHg based on IVC assessment. - Exam was compared with the prior echocardiographic exam performed on 09/10/14. There is an increase in AI, MR, TR and RVSP today. 01/28/2023 PET scan IMPRESSION: 1. NECK: No FDG avid neoplastic process. No mass, adenopathy, or fluid collection. 2. CHEST: No FDG avid neoplastic process. No mass, adenopathy, or fluid collection. Interval decrease in size of the small left pleural effusion. 3. ABDOMEN/PELVIS: No FDG avid neoplastic process. No mass, adenopathy, or fluid collection. 4. EXTREMITIES/SKELETON: No FDG avid osseous process. No destructive/traumatic bony abnormality. 08/14/2022 PET SCAN IMPRESSION: 1. HEAD and [...] followed by an autologous stem cell transplant February 2013. After her transplant the patient [...] 04/06/2022. She last received pembrolizumab on 05/01/2022. Follow-up PET scans have remained negative, most recently 05/20/2023. At this time we will continue close observation. Return in 8 weeks for follow-up and labs. Unless new symptoms develop we will restage again with a PET scan at 6 months (November 2023). Currently the patient is symptomatic with increasing shortness of breath, sinus congestion with drainage, hoarse voice, and general malaise. Will check additional labs today including TFTs and an IgG level. If the IgG level is low would consider IV IgG replacement. If infectious symptoms persist after completing her current Z-Ron prescription will treat with a more aggressive antibiotic (Levaquin 750 mg daily x 10). 2. Autologous bone marrow transplantation status ([facility]) - ICD9: V42.81, ICD10: Z94.81 Status post high-dose busulfan, etoposide, and cyclophosphamide with autologous hematopoietic progenitor cell transplantation February 2013. 3. Restrictive lung disease - [...] Status post anticoagulation with Lovenox followed by Aleahrelto. 5. 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 Stable on current medications (Neurontin). Continue management per PCP. 6. Psoriasis [...] on current medications. Continue management per PCP. 10. Adrenal insufficiency Labs obtained 01/01/2023 revealed a significantly low cortisol level of 1.6. Most likely the patient developed adrenal insufficiency secondary immunotherapy. Steroid replacement with hydrocortisone 20 mg twice daily recommended. However, the patient did not tolerate hydrocortisone and her symptoms did not improve. She subsequently discontinued the medication. At this time we will monitor closely, and reconsider intervention if symptoms worsen. 11. Chronic fatigue The patient has a long history of chronic fatigue, most likely related to her underlying disease, extensive prior treatment, and multiple medications. Alexsander Ledezma MD documented in this encounter [facility] 05-31-2023 History of Presen t illness Narrative Radiology Service Progress Note PATIENT NAME: Celso Potts DATE OF SERVICE: May 31, 2023 TIME: 3:39 PM PATIENT IDENTITY VERIFICATION COMPLETED USING TWO (2) IDENTIFIERS: Name and Date of confirmed by patient verbally. FALL SCREENING: Has the patient had 2 falls in the last year or 1 fall with injury or currently using an Ambulatory Assistive Device (Walker, Cane, Wheelchair, Crutches, etc.)? No PATIENT GENDER DATA: Female. status: : No status: NO. PATIENT RELEVANT IMPLANT DATA REVIEWED: Not Applicable PATIENT PRESENTS WITH AN IMPLANTABLE OR ATTACHED CRYSTAL ATTACHER: No RADIOLOGY DEPARTMENT: General X-ray: Exam(s) Completed: Chest X-Ray PERIPHERAL IV DATA: Not applicable SIGNED BY: RT Rosangela(R) May 31, 2023 3:39 PM documented in this encounter [facility] 05-31-2023 History of Presen t illness Narrative This note was created using [email or web address]. Subjective Celso Potts is a 42 year old female. Patient presents with: Wheezing: Short of breath, Saturday. Reports wheezing and shortness of breath x 2 days. Chronic cough and PND. PND has not worsened. Cough productive only this AM with yellow phlegm - typically non-productive. Reports lungs feel tight . Reports compliance with Breo-elipta and DOAC. Has been using duoneb at least once per day . Last use of duoneb yesterday. Denies fever or chills at present. Denies other URI or allergy symptoms. No decreased appetite and activity level. No recent travel or known sick contacts. OTC treatments include: None No other complaints at present. PAST MEDICAL HISTORY Diagnosis Date ASCUS favor [...] path VATS MEDIASTINAL LYMPHADENECTOMY 10/2012 left VATS ALLERGIES Chlorhexidine and Sulfa (Sulfonamide Antibiotics) MEDICATIONS ipratropium-albuterol (DUONEB) 0.5 mg-3 mg(2.5 mg base)/3 mL nebu inhale contents of 1 vial ( 3 MILLILITERS ) in nebulizer by mouth and INTO THE LUNGS every 6 hours if needed for wheezing or shortness of breath pantoprazole DR (PROTONIX) 40 mg tablet Take 1 tablet by mouth once daily. oxyCODONE IR (ROXICODONE) 10 mg tab Take 1 tablet by mouth every 6 hours as needed for pain for up to 30 days. baclofen 5 mg tablet take 1 tablet by mouth three times a day fluticasone-vilanterol (BREO ELLIPTA) 200-25 mcg/dose inhaler Inhale 1 Inhalation as instructed once daily. azithromycin (ZITHROMAX Z-RON) 250 mg tablet Two (2) tablets by mouth the first day and then one (1) tablet by mouth daily for 4 days. cyclobenzaprine (FLEXERIL) 10 mg tablet Take 1 tablet by mouth three times a day as needed for muscle spasm. azelastine 0.1% nasal spray Use 1 [place] in each nostril two times a day. prochlorperazine (COMPAZINE) 10 mg tablet take 1 tablet by mouth every 6 hours if needed hydrocortisone (CORTEF) 20 mg tablet Take 1 tablet by mouth two times a day. LORazepam (ATIVAN) 0.5 mg take 1 tablet by mouth four times a day if needed for anxiety XARELTO 10 mg tablet take 1 tablet by mouth once daily Biotin 2,500 mcg cap mirtazapine (REMERON) 30 mg tablet Take 30 mg by mouth daily at bedtime. acyclovir (ZOVIRAX) 400 mg tablet take 1 tablet by mouth twice a day tretinoin (RETIN-A) 0.05 % cream Apply a pea size amount to affected area every other night for 2 weeks then increase to daily as tolerated fluocinonide (LIDEX) 0.05 % cream apply to [...] C No.3 (B COMPLEX PLUS VITAMIN C) 59-65-00-5-300 mg cap Take 1 tablet by mouth [...] 2000 mg in a 24 hour period). FAMILY HISTORY Problem Relation Age of Onset Multiple Sclerosis Mother Coronary Artery Disease Maternal Grandfather [place] age 36 Coronary Artery Disease Paternal Grandfather 60's Multiple Sclerosis Maternal Grandmother Social History Tobacco Use Smoking status: Former Years: 10 Types: Cigarettes Quit date: 01/18/2012 Years since quittin.3 Passive exposure: Past Smokeless tobacco: Never Vaping Use Vaping Use: Never used Substance Use Topics Alcohol use: Yes Alcohol/week: 0.0 standard drinks of alcohol Comment: 2 drinks per month Drug use: No Review of Systems Constitutional: Negative. HENT: Positive for postnasal drip. Negative for congestion, ear pain, facial swelling, hearing loss, mouth sores, nosebleeds, rhinorrhea, sinus pressure, sinus pain, sneezing, sore throat and tinnitus. Respiratory: Positive for cough, chest tightness, shortness of breath and wheezing. Cardiovascular: Negative for chest pain, palpitations and leg swelling. Gastrointestinal: Negative. Neurological: Negative. Objective BP 120/83 (BP Site: Right Arm, BP Position: Sitting, BP Cuff Size: Large Adult) Pulse 109 Temp 36.1 C (96.9 F) (Temporal) LMP 11/18/2012 SpO2 97% Physical Exam Vitals reviewed. Constitutional: Appearance: Normal appearance. HENT: Head: Normocephalic. Nose: Nose normal. Mouth/Throat: Mouth: Mucous membranes are moist. Pharynx: No oropharyngeal exudate or posterior oropharyngeal erythema. Eyes: Conjunctiva/sclera: Conjunctivae normal. Cardiovascular: Rate and Rhythm: Normal rate and regular rhythm. Pulses: Normal pulses. Heart sounds: Normal heart sounds. Pulmonary: Effort: Pulmonary effort is normal. No respiratory distress or retractions. Breath sounds: Decreased air movement present. Examination of the right-upper field reveals wheezing. Examination of the right-middle field reveals wheezing. Examination of the left-lower field reveals decreased breath sounds. Decreased breath sounds and wheezing (expiratory, cleared with duoneb) present. Comments: Initial exam breath sounds absent LLL. Slight air movement noted after duoneb. Chest: Chest wall: There is no dullness to percussion. Abdominal: General: Bowel sounds are normal. Palpations: Abdomen is soft. Musculoskeletal: Cervical back: No tenderness. Lymphadenopathy: Cervical: No cervical adenopathy. Skin: General: Skin is warm and dry. Capillary Refill: Capillary refill takes less than 2 seconds. Neurological: Mental Status: She is alert. Assessment and Plan 1. Restrictive lung disease 2. Wheezing -Will start duoneb q4 hours while awake - if no improvement may begin oral prednisone. Patient recently on 24 day course of prednisone taper - discussed duoneb every 4 hours while awake (patient has supply). Patient hospitalized in March for bilateral PNA/influenza. Discharged on azithromycin. - predniSONE (DELTASONE) 20 mg tablet; Take 2 tablets by mouth once daily for 5 days. Dispense: 10 tablet; Refill: 0 If worsening symptoms may begin: - doxycycline hyclate (VIBRAMYCIN) 100 mg capsule; Take 1 capsule by mouth two times a day for 5 days. Dispense: 10 capsule; Refill: 0 -Take the entire course of antibiotics as prescribed even if your symptoms improve -Antibiotics may be taken with food or milk to avoid stomach upset -Some antibiotics such as doxycycline and Bactrim (sulfamethiazole-trimethoprim) may cause sun sensitivity -You can take an over the counter once daily probiotic or eat a yogurt daily while taking the antibiotics - COVID & INFLUENZA A/B & RSV NAAT, ROUTINE - XR CHEST 2V FRONTAL/LAT; Future - ipratropium-albuterol 3 mL nebulizer solution (DUONEB) Discussed requesting virtual consult with ED physician. Patient gave verbal consent to consult and is aware of applicable cost-sharing. Discussed case with Dr. Christian Armenta - apprec recs. Will obtain [facility] x[facility] at [facility]. Give breathing treatment and re-evaluate. Reviewed diagnosis and treatment options/plan with patient. The patient verbalized understanding and intent to comply with treatment. Follow-up instructions were given to the patient; keep PCP appointment previously scheduled for Saturday and follow-up with pulmonology [facility]. Specific signs and symptoms that would indicate the need for higher level of care were discussed in detail warranting prompt ER evaluation. The patient denied further concerns/questions at the end of the visit. Zoila Aguirre APRN.CNP May 31, 2023 4:03 PM documented in this encounter [facility] 05-28-2023 Miscellaneous Notes Formattin g of this note is different from the original. Last OV 04/19/2023 F/U 09/26/2023 Pharmacy requesting refills as follows: Requested Prescriptions Pending Prescriptions Disp Refills ipratropium-albuterol (DUONEB) 0.5 mg-3 mg(2.5 mg base)/3 mL nebu [Pharmacy Med Name: IPRAT-ALBUT 0.5-3(2.5) MG/3 ML] 1 Sig: inhale contents of 1 vial ( 3 MILLILITERS ) in nebulizer by mouth and INTO THE LUNGS every 6 hours if needed for wheezing or shortness of breath Rx #: [id number] Pharmacy comment: Please authorize 90 days supply for the patient. Please review and advise. Mitzi Hutchinson MA documented in this encounter [facility] 05-22-2023 History of Presen t illness Narrative Images from the original note were not included. [facility] [place] [facility] NOTE CC: Celso Potts is a 42 year old female who is seen at the request of Kylie Nunes APRN, CNP for evaluation of dysphagia, unspecified type and hoarseness. My findings and recommendations will be communicated to the referring provider via the shared electronic medical record. ASSESSMENT: Dysphagia, unspecified type Hoarseness Gastroesophageal reflux disease, unspecified whether esophagitis present Lprd (laryngopharyngeal reflux disease) PLAN: - Prescribed Protonix; counseled patient on medication, dose, route, side effects, and adverse reactions - Educated patient on LPR, GERD, including diet and lifestyle modifications, alginate therapy; patient education handout provided - Ordered MBS, XR esophagram for further evaluation of dysphagia, reflux - Aggressive allergy management, avoidance of allergic triggers, daily oral antihistamine, nasal saline rinses - Advised patient on red flag warning signs, symptoms that warrant immediate evaluation in ER - Follow up after MBS, XR; sooner if clinically indicated. May consider consult to GI, OUTPATIENT PHYSICAL THERAPIST Loy Merino PA-C [facility] HPI: 42 year old female presents to clinic for evaluation of dysphagia, unspecified type and hoarseness. Patient reports 1.5+ years of hoarseness. Patient was previously evaluated by ENT as was told to drink hot tea with temporary relief of symptoms. Patient also reports onset of intermittent dysphagia with both solids and liquids. Patient reports food will get stuck and she has to drink water to wash down food. Other times, patient reports there is food in her mouth and she has to focus on act of swallowing. Patient endorses chronic cough, nonproductive as well as PND, globus sensation. Patient was placed on Astelin due to concern for PND contributing to sore throat with mild relief. However, side effects of significant dryness, oral dryness so decreased use. Patient endorses history of GERD, Dexilant daily. Patient reports recent period of not taking medication with exacerbation of symptoms. Patient endorses history of seasonal and environmental allergies, Benadryl PRN. Patient former smoker, quit in 2011. Past medical history: PAST MEDICAL HISTORY Diagnosis Date ASCUS favor [...] human papillomavirus (HPV) DNA test positive 09/28/2014 Past surgical history: PAST SURGICAL HISTORY Procedure Laterality Date ENDOCERVICAL CURETTAGE 04/02/2017 HYSTEROSCOPY BX W/WO D&C 04/02/2017 with D&C PAST SURGICAL HISTORY OF 01/16/12 left axillary ln biopsy/ had 2013 stem cell tx has port removal VAGINOSCOPY 10/12/14 negative path VATS MEDIASTINAL LYMPHADENECTOMY 10/2012 left VATS Current medication(s): Current Outpatient Medications Medication Sig pantoprazole DR (PROTONIX) 40 mg tablet Take 1 tablet by mouth once daily. ipratropium-albuterol (DUONEB) 0.5 mg-3 mg(2.5 mg base)/3 mL nebu Inhale 3 mL as instructed every 6 hours as needed for wheezing/shortness of breath. ipratropium-albuterol (DUONEB) 0.5 mg-3 mg(2.5 mg base)/3 mL nebu inhale contents of 1 vial in nebulizer by mouth every 6 hours if needed for wheezing or shortness of breath oxyCODONE IR (ROXICODONE) 10 mg tab Take 1 tablet by mouth every 6 hours as needed for pain for up to 30 days. baclofen 5 mg tablet take 1 tablet by mouth three times a day fluticasone-vilanterol (BREO ELLIPTA) 200-25 mcg/dose inhaler Inhale 1 Inhalation as instructed once daily. azithromycin (ZITHROMAX Z-RON) 250 mg tablet Two (2) tablets by mouth the first day and then one (1) tablet by mouth daily for 4 days. cyclobenzaprine (FLEXERIL) 10 mg tablet Take 1 tablet by mouth three times a day as needed for muscle spasm. azelastine 0.1% nasal spray Use 1 [place]ford in each nostril two times a day. prochlorperazine (COMPAZINE) 10 mg tablet take 1 tablet by mouth every 6 hours if needed hydrocortisone (CORTEF) 20 mg tablet Take 1 tablet by mouth two times a day. LORazepam (ATIVAN) 0.5 mg take 1 tablet by mouth four times a day if needed for anxiety XARELTO 10 mg tablet take 1 tablet by mouth once daily Biotin 2,500 mcg cap mirtazapine (REMERON) 30 mg tablet Take 30 mg by mouth daily at bedtime. acyclovir (ZOVIRAX) 400 mg tablet take 1 tablet by mouth twice a day tretinoin (RETIN-A) 0.05 % cream Apply a pea size amount to affected area every other night for 2 weeks then increase to daily as tolerated fluocinonide (LIDEX) 0.05 % cream apply to [...] C No.3 (B COMPLEX PLUS VITAMIN C) 60-03-79-5-300 mg cap Take 1 tablet by mouth [...] 24 hour period). No current facility-administered medications for this visit. Allergies: ALLERGIES Allergen Reactions Chlorhexidine Itching Severe skin irritation. Had used for central line care Sulfa (Sulfonamide * Rash Social history: Social History Tobacco Use Smoking status: Former Years: 10 Types: Cigarettes Quit date: 01/18/2012 Years since quittin.3 Passive exposure: Past Smokeless tobacco: Never Vaping Use Vaping Use: Never used Substance Use Topics Alcohol use: Yes Alcohol/week: 0.0 standard drinks of alcohol Comment: 2 drinks per month Drug use: No Family history: FAMILY HISTORY Problem Relation Age of Onset Multiple Sclerosis Mother Coronary Artery Disease Maternal Grandfather [place] age 36 Coronary Artery Disease Paternal Grandfather 60's Multiple Sclerosis Maternal Grandmother There are no exam notes on file for this visit. ROS: CONSTITUTIONAL: No fevers, chills, nightsweats, unintended weight loss HEAD: - headaches, - head injury EYES: - glasses/contact lens, - changes in vision, - diplopia, - blurry vision, - floaters EARS: - hearing loss, - change in hearing, - tinnitus, - otalgia, - ear pressure, - ear congestion, - otorrhea, - itching, - autophony, - ear infections, - PE tubes NOSE & SINUSES: + nasal congestion, + rhinorrhea, + PND, - epistaxis, - sense of smell, - history of nasal polyps, - sinus trouble, - sinus pressure, - sinus pain MOUTH & THROAT: - soreness, - dryness, - ulcers, + sore throat, + hoarseness, + change in voice, - teeth (caries, dentures, extractions, abscesses), + throat clearing, + globus pharyngeus NECK: - neck lumps, - goiter, - neck pain, - swollen lymph nodes or glands PULM: No dyspnea, + cough CV: No chest pain, shortness of breath, leg swelling, or palpitations GI: + dysphagia, + problematic reflux. No nausea, vomiting, or diarrhea PSYCH: No concerns regarding depression, anxiety or panic PHYSICAL EXAM: GENERAL: 42 year old female is well developed, well nourished, without obvious deformities, in no acute distress COMMUNICATION: The patient speaks with a hoarse voice. No stridor or stertor. Hearing is grossly normal OVERALL FACIAL APPEARANCE: No obvious scars, lesions, or masses EYES: Extraocular muscles are intact, no diplopia on primary gaze EARS: Externally normal in appearance, without scars, lesions, masses, or tenderness. Right EAC: patent; no swelling, redness, or obstruction R TM: visualized and intact; pearly alcantara and translucent, landmarks undistorted; no fluid behind TM R Pneumotoscopy: TM is mobile Left EAC: patent; no swelling, redness, or obstruction L TM: visualized and intact; pearly alcantara and translucent, landmarks undistorted; no fluid behind TM L Pneumotoscopy: TM is mobile NOSE: Externally normal in appearance, without scars, lesions, or masses. There is no tenderness with percussion over the paranasal sinuses. Nasal passageways are patent. The mucosa is pink and moist without lesions, visible turbinates grossly normal on anterior rhinoscopy. Septum is midline. ORAL CAVITY AND OROPHARYNX: Teeth are in fair repair and nontender. The lips, gums, oral mucosa, hard and soft palates, tongue, tonsil area, and posterior pharyngeal mucosa are without lesions. Uvula midline. No pharyngeal swelling, oropharyngeal exudate, + posterior oropharyngeal erythema cobblestoning. Floor of mouth is soft without edema. Gag reflex intact. NECK: The neck appears symmetric without scars and on palpation is without masses or lymphadenopathy. Trachea is midline and mobile. Full range of motion without symptoms. MSK: TMJ joint palpated and revealed no crepitation NEURO: Patient is Alert and Oriented to person, place, time, and situation. Cranial nerves II-XII grossly intact RESPIRATORY: Breathing comfortably, no evidence accessory muscle use, no intercostal retractions CV: Strong carotid artery pulse with no bruit RADS: None LABS: Relevant labs were reviewed and discussed with patient. OUTSIDE RECORDS: None PROCEDURE: Diagnostic Flexible Laryngoscopy Indication: Dysphagia, hoarseness, hyperactive gag Consent: Verbal consent obtained. Risks, benefits, alternatives, and expectations were explained; patient consents to procedure. Clinician: Loy Merino PA-C Anesthesia: The patient was sprayed with 2% topical lidocaine and 0.5% phenylephrine. Findings: A flexible fiberoptic laryngoscope was passed through the patient's nares. The nasal cavities, nasopharynx, oropharynx, hypopharynx and larynx were examined. Septum: Midline, no perforations Nasal cavity: grossly unremarkable, no lesions/masses/polyps/discharge, turbinates normal in size Naso-/Bernard-/Hypopharynx: nasopharynx and oropharynx were normal without any lesions or masses visualized. No masses or lesions were visualized at the base of tongue, vallecula, epiglottis, aryepiglottic folds, pyriform sinuses, and lateral pharyngeal prakash. There is cobblestoning of posterior pharyngeal wall, post cricoid and arytenoid edema and erythema, and hyperemia of true vocal cords. True vocal fold movement was intact bilaterally. No lesions visualized. The patient's airway was widely patent with no evidence of obstruction Patient tolerated the procedure well and there were no complications. Findings were explained to the patient. Loy Merino PA-C [facility] Medical Decision Making: Problems: Moderate: 1+ chronic illnesses with change Data: Unique test(s) ordered: 2 Risk: Moderate: Moderate risk from testing/treatment and Drug management Medical Decision Making Level: 4 - Moderate documented in this encounter [facility] 05-13-2023 Miscellaneous Notes Formattin g of this note might be different from the original. PDMP website checked and validated. All prescriptions have been APPROPRIATELY filled. No suspicious activity was identified. 05/13/2023 by Juan Francisco Hutchinson APRN.LEAD SYSTEMS DEVELOPER Rx sent Juan Francisco Hutchinson APRN.LEAD SYSTEMS DEVELOPER Patient requesting refills as follows: Last ordered 04/08/2023. Next scheduled follow up appointment 05/16/2023. Requested Prescriptions Pending Prescriptions Disp Refills oxyCODONE IR (ROXICODONE) 10 mg tab 120 tablet 0 Sig: Take 1 tablet by mouth every 6 hours as needed for pain for up to 30 days. Kylie Mosher RN May 13, 2023 documented in this encounter [facility] 05-07-2023 Miscellaneous Notes Formattin g of this note is different from the original. Pharmacy requesting refills as follows: Last ordered 01/07/2023 Next scheduled follow up appointment 05/16/2023. Requested Prescriptions Pending Prescriptions Disp Refills baclofen 5 mg tablet [Pharmacy Med Name: BACLOFEN 5 MG TABLET] 90 tablet 1 Sig: take 1 tablet by mouth three times a day Kylie Mosher RN May 07, 2023 documented in this encounter [facility] 04-19-2023 Note HNO ID: [id number] Author: LANI SMITH RT(R) Service: Radiology Author Type: Technologist Type: Progress Notes Filed: 04/19/2023 09:32 Note Text: Radiology Service Progress Note PATIENT NAME: Celso Potts DATE OF SERVICE: April 19, 2023 TIME: 9:31 AM PATIENT IDENTITY VERIFICATION COMPLETED USING TWO [...] GENDER DATA: Female. status: : No status: N/A PATIENT RELEVANT IMPLANT DATA REVIEWED: Not Applicable PATIENT PRESENTS WITH AN IMPLANTABLE OR ATTACHED CRYSTAL ATTACHER: No RADIOLOGY DEPARTMENT: General X-ray: Exam(s) Completed: Chest X-Ray PERIPHERAL IV DATA: Not applicable SIGNED BY: RT Nishant(R) April 19, 2023 9:31 AM [facility] 04-19-2023 History of Presen t illness Narrative Radiology Service Progress Note PATIENT NAME: Celso Potts DATE OF SERVICE: April 19, 2023 TIME: 9:31 AM PATIENT IDENTITY VERIFICATION COMPLETED USING TWO [...] GENDER DATA: Female. status: : No status: N/A PATIENT RELEVANT IMPLANT DATA REVIEWED: Not Applicable PATIENT PRESENTS WITH AN IMPLANTABLE OR ATTACHED CRYSTAL ATTACHER: No RADIOLOGY DEPARTMENT: General X-ray: Exam(s) Completed: Chest X-Ray PERIPHERAL IV DATA: Not applicable SIGNED BY: RT Nishant(R) April 19, 2023 9:31 AM documented in this encounter [facility] 04-19-2023 History of Presen t illness Narrative Images from the original note were not included. . [facility] Follow-Up Clinic Note Ms. Potts is a 42 year old female who presents to the [facility] [place] for follow up of hospitalization for pneumonia secondary to influenza. Patient's primary guest house manager is Dr. Carver. 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 Last Pulmonary Office Visit A&P with Kylie Nunes 03/28/23 ASSESSMENT/PLAN: 1. Restrictive lung disease - ICD9: [...] difficulty swallowing and persistent hoarseness. Refer to [facility] for repeat flex scope and assistance with management. Will need to consider MBS as well pending evaluation 6. History of pulmonary embolism - ICD9: V12.55, ICD10: Z86.711 In the setting of malignancy. On life long anticoagulation with Xarelto. Follow up in [address] Mehul CHAMPION/MINH Ms. Potts reports she started to feel ill on the evening of 03/28/23 (following her last visit here). She reports severe dyspnea with exertion, harsh nonproductive cough, frequent wheezing, fatigue, headache, sinus congestion and drainage, body aches, fever with Tmax 103.8. No GI symptoms, no loss of taste or smell. Home COVID test was positive. She was evaluated via telehealth 03/29/2023 and started on molnipiravir. Symptoms continued to worsen, and she went went to [facility] ED 03/31/23. SARS-CoV-2 TARA testing done at that time was negative. She was also negative for influenza A/influenza B antigens at that time. She was diagnosed with nonspecific viral illness and advised to stop molnupiravir at that time. Symptoms further worsened, especially dyspnea and wheezing, so she returned to [facility] ED 04/02/2023. This time she tested positive for influenza A, with new bilateral infiltrates on CXR suggestive of pneumonia. She was admitted to ICU for severe persistent headache different than her baseline. She was discharged to home 04/04/2023 with 3 days of amoxicillin post IV treatment. She saw her PCP for hospital follow-up on 04/09/2023 and was started on a prednisone 40 mg / 12-day taper for persistent wheezing and dyspnea. Today she reports she continues with harsh mostly nonproductive coughing and frequent wheezing but is slowly improving. She does occasionally cough up yellow mucus still. Symptoms are worst at night when she is supine. She is not waking up from sleep due to cough/wheeze. She continues to have sinus pressure with nasal congestion. Current Treatment Plan Breo 100 mcg Albuterol HFA PRN - has, doesn't help Duoneb NEB PRN - 1-2 x/day Azelastine Review of systems completed and is negative except as noted above. Social History Tobacco Use Smoking status: Former Years: 10 Types: Cigarettes Quit date: 01/18/2012 Years since quittin.2 Passive exposure: Past Smokeless tobacco: Never Vaping Use Vaping Use: Never used Substance Use Topics Alcohol use: Yes Alcohol/week: 0.0 standard drinks of alcohol Comment: 2 drinks per month Drug use: No PAST MEDICAL HISTORY Diagnosis Date ASCUS favor [...] OF 01/16/12 left axillary ln biopsy/ had 2013 stem cell tx has port removal VAGINOSCOPY 10/12/14 negative path VATS MEDIASTINAL LYMPHADENECTOMY 10/2012 left VATS Allergies Chlorhexidine and Sulfa (Sulfonamide Antibiotics) Home Medications predniSONE (DELTASONE) 10 mg tablet take 4 tablets by mouth once daily for 3 days take 3 tablets once... (REFER TO PRESCRIPTION NOTES). oxyCODONE IR (ROXICODONE) 10 mg tab Take 1 tablet by mouth every 6 hours as needed for pain for up to 30 days. cyclobenzaprine (FLEXERIL) 10 mg tablet Take 1 tablet by mouth three times a day as needed for muscle spasm. fluticasone-vilanterol (BREO ELLIPTA) 100-25 mcg/dose inhaler Inhale 1 Inhalation as instructed once daily. azelastine 0.1% nasal spray Use 1 [place] in each nostril two times a day. prochlorperazine (COMPAZINE) 10 mg tablet take 1 tablet by mouth every 6 hours if needed baclofen 5 mg tablet Take 1 tablet by mouth three times a day. hydrocortisone (CORTEF) 20 mg tablet Take 1 tablet by mouth two times a day. LORazepam (ATIVAN) 0.5 mg take 1 tablet by mouth four times a day if needed for anxiety umeclidinium (INCRUSE ELLIPTA) 62.5 mcg/actuation inhaler Inhale 1 Puff as instructed once daily. XARELTO 10 mg tablet take 1 tablet by mouth once daily Biotin 2,500 mcg cap mirtazapine (REMERON) 30 mg tablet Take 30 mg by mouth daily at bedtime. ipratropium-albuterol (DUONEB) 0.5 mg-3 mg(2.5 mg base)/3 mL nebu Inhale 3 mL as instructed every 6 hours as needed for wheezing/shortness of breath. acyclovir (ZOVIRAX) 400 [...] 2000 mg in a 24 hour period). tretinoin (RETIN-A) 0.05 % cream Apply a pea size amount to affected area every other night for 2 weeks then increase to daily as tolerated Vitamin B Comp and C No.3 (B COMPLEX PLUS VITAMIN C) 44-63-99-5-300 mg cap Take 1 tablet by mouth once daily. PHYSICAL EXAM BP 112/76 Pulse 94 Ht 6' 0 [per patient[ (1.83m) Wt 229 lb 0.9 oz (103.9kg) SpO2 98[RA]% LMP 11/18/2012 BMI 31.06 kg/(m^2). Physical Exam Vitals reviewed. Constitutional: General: She is awake. She is not in acute distress. Appearance: Normal appearance. She is well-developed. She is not ill-appearing. HENT: Head: Normocephalic and atraumatic. Right Ear: External ear normal. Left Ear: External ear normal. Nose: Nose normal. No congestion or rhinorrhea. Right Nostril: No epistaxis. Left Nostril: No epistaxis. Mouth/Throat: Mouth: Mucous membranes are moist. No oral lesions. Pharynx: Oropharynx is clear. Eyes: General: No scleral icterus. Right eye: No discharge. Left eye: No discharge. Extraocular Movements: Extraocular movements intact. Conjunctiva/sclera: Conjunctivae normal. Cardiovascular: Rate and Rhythm: Normal rate and regular rhythm. Heart sounds: Normal heart sounds. No murmur heard. No gallop. Pulmonary: Effort: Pulmonary effort is normal. No tachypnea, bradypnea, accessory muscle usage, prolonged expiration, respiratory distress or retractions. Breath sounds: Examination of the right-lower field reveals decreased breath sounds. Examination of the left-lower field reveals decreased breath sounds. Decreased breath sounds present. No wheezing, rhonchi or rales. Musculoskeletal: Right lower leg: No edema. Left lower leg: No edema. Skin: General: Skin is warm and dry. Coloration: Skin is not cyanotic, jaundiced or mottled. Findings: No erythema or rash. Nails: There is no clubbing. Neurological: General: No focal deficit present. Mental Status: She is alert. Mental status is at baseline. Psychiatric: Mood and Affect: Mood and affect normal. Behavior: Behavior normal. Behavior is cooperative. DIAGNOSTICS Testing I Reviewed Today: See [facility] for all available results and images. PFT/Procedures Spirometry with LV and DLCO 03/28/23 Spirometry shows no obstruction. The reduced FVC suggests restriction. Recommend lung volumes if clinically indicated. There is no significant bronchodilator response. The diffusing capacity is moderately reduced. The diffusing capacity independent of alveolar volume (kCO), is normal. The presence of a reduced lung diffusion capacity - that normalizes when measured independent of alveolar volume (kCO) is consistent with a nonparenchymal disorder but does not rule out parenchymal or pulmonary vascular disorder. Imaging CXR 2V 04/02/23 - Care Everywhere report only; image requested. Recent Results (from the past 4464 hour(s)) ECHO Collection Time: 03/20/23 8:58 AM Impression CONCLUSIONS: - Exam indication: LVH - The left ventricle is normal in size. There is mild concentric left ventricular hypertrophy. Left ventricular systolic function is normal. EF = 57 5% (2D biplane) - The right ventricle is normal in size. Right ventricular systolic function is normal. - There is moderate (2+) holosystolic mitral valve regurgitation. Regurgitant orifice area (PISA) is 0.13 cm . - There is moderate (2+) aortic valve regurgitation. - Estimated right ventricular systolic pressure is 51 mmHg consistent with moderate pulmonary hypertension. Estimated right atrial pressure is 3 mmHg based on IVC assessment. - Exam was compared with the prior echocardiographic exam performed on 09/10/14. There is an increase in AI, MR, TR and RVSP today. * * * Final * * * Lab/Micro Additional reports available in Care Everywhere -Reviewed viral swabs, Ddimer, LANE, CBC. CBC Latest Ref Rng & Units 04/16/2023 WBC 3.70 - 11.00 k/uL 10.59 RBC 3.90 - 5.20 m/uL 4.67 HEMOGLOBIN 11.5 - 15.5 g/dL 14.2 HEMOGLOBIN TOTAL, WHOLE BLOOD 12 - 16 g/dL - HEMATOCRIT 36.0 - 46.0 % 43.8 MCV 80.0 - 100.0 fL 93.8 MCH 26.0 - 34.0 pg 30.4 MCHC 30.5 - 36.0 g/dL 32.4 RDW-CV 11.5 - 15.0 % 13.4 PLATELETS 150 - 400 k/uL 348 MPV 9.0 - 12.7 fL 8.8(L) BASO% % 0.4 ABS NEUT (ANC) 1.45 - 7.50 k/uL 7.29 ABS LYMPH 1.00 - 4.00 k/uL 2.59 ABS MONO <0.87 k/uL 0.53 ABS EOSIN <0.46 k/uL 0.09 ABS BASO <0.11 k/uL 0.04 NRBC /100 WBC 0.0 META% % - MYELO% % - ANISOCYTOSIS - - LEFT SHIFT - - OVALOCYTES - - POLYCHROMASIA - - PLATELET ESTIMATE - - DIFF TYPE - - CMP Latest Ref Rng & Units 04/16/2023 SODIUM 136 - 144 mmol/L 145(H) POTASSIUM 3.7 - 5.1 mmol/L 4.0 CHLORIDE 97 - 105 mmol/L 104 CO2 22 - 30 mmol/L 29 GLUCOSE 74 - 99 mg/dL 121(H) BUN 7 - 21 mg/dL 18 CREATININE 0.58 - 0.96 mg/dL 0.75 EGFR >=60 mL/min/1.73m 103 EGFR-ALL OTHER RACES . - EGFR- - - PROTEIN, TOTAL 6.3 - 8.0 g/dL 6.5 ALBUMIN 3.9 - 4.9 g/dL 4.1 CALCIUM, TOTAL 8.5 - 10.2 mg/dL 9.8 BILIRUBIN, TOTAL 0.2 - 1.3 mg/dL 0.3 AST 13 - 35 U/L 31 ALT 7 - 38 U/L 48(H) ALKALINE PHOSPHATASE 34 - 123 U/L 71 ASSESSMENT & PLAN Influenza with pneumonia - ICD9: 487.0, ICD10: J11.00 (primary diagnosis) Restrictive lung disease - ICD9: 518.89, ICD10: J98.4 Hospital discharge follow-up - ICD9: V67.59, ICD10: Z09 Ms. Potts reports persistent wheezing, dyspnea, and sinus congestion. She completed her antibiotics 04/07/23. She is currently finishing a prednisone 40 mg taper per PCP. - PREDNISONE 10 MG TABLET Continue prednisone taper per PCP. Refill provided in case symptoms persist. - AZITHROMYCIN 250 MG TABLET (Zpak) for persistent congestion - FLUTICASONE FUROATE 200 MCG-VILANTEROL 25 MCG/DOSE INHALATION POWDER - - Dose increased from current 100 mcg dose to see if current and baseline symptoms can be better managed - Increase use of nebulizer for bronchopulmonary hygiene - XR CHEST 2V FRONTAL/LAT today for re-assessment of lung rodriguez. Discussed that it is not expected to demonstrated complete clearing now, but am assessing for any worsening. - - Will request most recent images from [facility] for comparison Follow up with Dr. Carver in Sep 2023 as already scheduled, and as needed. Contact Dr. Carver and myself for any persistent symptoms that do not return to baseline post-treatment. Patient instructed to call our office, PCP, or go to the emergency department for new or worsening problems or symptoms. Radha Ruano DNP, [facility] [place] I spent a total of 46 minutes on the date of the service which included preparing to see the patient, [id number] patient care, completing clinical documentation, obtaining and/or reviewing separately obtained history, performing a medically appropriate examination, counseling and educating the patient/family/caregiver, and ordering medications, tests, or procedures. documented in this encounter [facility] 04-16-2023 History of Presen t illness Narrative PATIENT NAME: Celso Potts DATE: 04/16/2023 PRIMARY CARE PHYSICIAN: Jose Vail MD OTHER PHYSICIANS: Dr. Cyn Ramires; Dr. Gurpreet Unger; Juan Francisco Hutchinson CNP ([facility] Pall Med), Dr. Jane Del Valle ([facility] Rad Onc), Dr. Summer Carver ([facility] Pulmonary), Dr Jaxson Gamez ([facility] Dermatology) Portions of this encounter note have been copied from my note from 02/19/2023 and has been updated where appropriate, and reflect my current medical decision making from today. CC: This is a 42 year old female with recurrent Hodgkin's disease, seen for scheduled follow-up. INTERIM HISTORY: Since the patient's last visit here she developed acute fevers with associated headaches and shortness of breath. She was seen at [facility] emergency room on 03/30/2023, and apparently her workup was negative and she was sent home. She returned on 04/01/2023 with worsening symptoms at which time labs revealed evidence of influenza A infection, and chest x-ray suspicious for pneumonia. She was admitted, given IV antibiotics, steroids, and subsequently improved. She was discharged on 04/04/2023 and since then has completed a course of oral antibiotics. She remains on a tapering dose of prednisone. She still has some degree of shortness of breath, but no recent fevers. Interestingly, her previous muscle cramps have since resolved. No other complaints today. However, she is very anxious given the fact that she had PCP pneumonia in the past which was quite debilitating. MEDICATIONS: oxyCODONE IR (ROXICODONE) 10 mg tab Take 1 tablet by mouth every 6 hours as needed for pain for up to 30 days. cyclobenzaprine (FLEXERIL) 10 mg tablet Take 1 tablet by mouth three times a day as needed for muscle spasm. fluticasone-vilanterol (BREO ELLIPTA) 100-25 mcg/dose inhaler Inhale 1 Inhalation as instructed once daily. azelastine 0.1% nasal spray Use 1 [place] in each nostril two times a day. prochlorperazine (COMPAZINE) 10 mg tablet take 1 tablet by mouth every 6 hours if needed baclofen 5 mg tablet Take 1 tablet by mouth three times a day. hydrocortisone (CORTEF) 20 mg tablet Take 1 tablet by mouth two times a day. LORazepam (ATIVAN) 0.5 mg take 1 tablet by mouth four times a day if needed for anxiety umeclidinium (INCRUSE ELLIPTA) 62.5 mcg/actuation inhaler Inhale 1 Puff as instructed once daily. (Patient not taking: Reported on 03/28/2023) XARELTO 10 mg tablet take 1 tablet by mouth once daily Biotin 2,500 mcg cap mirtazapine (REMERON) 30 mg tablet Take 30 mg by mouth daily at bedtime. ipratropium-albuterol (DUONEB) 0.5 mg-3 mg(2.5 mg base)/3 mL nebu Inhale 3 mL as instructed every 6 hours as needed for wheezing/shortness of breath. acyclovir (ZOVIRAX) 400 mg tablet take 1 tablet by mouth twice a day tretinoin (RETIN-A) 0.05 % cream Apply a pea size amount to affected area every other night for 2 weeks then increase to daily as tolerated fluocinonide (LIDEX) 0.05 % cream apply to [...] C No.3 (B COMPLEX PLUS VITAMIN C) 12-75-17-5-300 mg cap Take 1 tablet by mouth [...] 2000 mg in a 24 hour period). ALLERGIES: Chlorhexidine and Sulfa (Sulfonamide Antibiotics) PAST [...] SYSTEMS: As above PHYSICAL EXAM: Vitals: BP 117/82 Pulse 89 Temp 36.3 C (97.4 F) (Temporal) Resp 18 Ht 180 cm (5' 10.87 ) Wt 102 kg (224 lb 13.9 oz) LMP 11/18/2012 SpO2 95% BMI 31.48 kg/m General appearance: well appearing, alert, in no [...] Normal LABORATORY DATA: Hemoglobin (g/dL) Date Value 04/16/2023 14.2 04/05/2021 15.3 Hematocrit (%) Date Value 04/16/2023 43.8 04/05/2021 45.8 WBC (k/uL) Date Value 04/16/2023 10.59 04/05/2021 8.31 Platelet Count (k/uL) Date Value 04/16/2023 348 04/05/2021 277 RADIOLOGY/OTHER STUDIES: 04/02/2023 Chest x-ray ([facility]) Airspace opacities in the medial lungs could represent aspiration changes and/or pneumonia. 03/20/2023 Echocardiogram The left ventricle is normal in size. There is mild concentric left ventricular hypertrophy. Left ventricular systolic function is normal. EF = 57 5% (2D biplane) - The right ventricle is normal in size. Right ventricular systolic function is normal. - There is moderate (2+) holosystolic mitral valve regurgitation. Regurgitant orifice area (PISA) is 0.13 cm . - There is moderate (2+) aortic valve regurgitation. - Estimated right ventricular systolic pressure is 51 mmHg consistent with moderate pulmonary hypertension. Estimated right atrial pressure is 3 mmHg based on IVC assessment. - Exam was compared with the prior echocardiographic exam performed on 09/10/14. There is an increase in AI, MR, TR and RVSP today. 01/28/2023 PET scan IMPRESSION: 1. NECK: No FDG avid neoplastic process. No mass, adenopathy, or fluid collection. 2. CHEST: No FDG avid neoplastic process. No mass, adenopathy, or fluid collection. Interval decrease in size of the small left pleural effusion. 3. ABDOMEN/PELVIS: No FDG avid neoplastic process. No mass, adenopathy, or fluid collection. 4. EXTREMITIES/SKELETON: No FDG avid osseous process. No destructive/traumatic bony abnormality. 08/14/2022 PET SCAN IMPRESSION: 1. HEAD and [...] followed by an autologous stem cell transplant February 2013. After her transplant the patient [...] 04/06/2022. She last received pembrolizumab on 05/01/2022. Restaging PET scan 08/14/2022 revealed no evidence disease and continued close observation recommended. Most recent PET scan 01/28/2023 remained negative. Currently the patient has no evidence of active disease. At this time we will continue close observation. Return in 8 weeks for follow-up and labs. Unless new symptoms develop we will restage again with a PET scan at 6 months (July 2023). 2. 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 3. Restrictive lung disease - ICD9: 518.89, ICD10: J98.4 As a result of the patient's extensive chemotherapy, stem cell transplant, and radiation therapy she has chronic restrictive lung disease. Continue management per [facility] pulmonary. She was hospitalized at [facility] 04/02/2023 through 04/04/2023 with apparent influenza A and community-acquired pneumonia. Clinically improved with antibiotics. Currently on a prednisone taper. Per patient request we will arrange for follow-up with her [facility] guest house manager (Dr. Carver). 4. History of pulmonary embolism and DVT (deep vein thrombosis) - ICD9: V12.51, ICD10: Z86.718 The patient had an incidental finding of a pulmonary embolism in May 2012. Status post anticoagulation with Lovenox followed by Xarelto. 5. 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 Stable on current medications (Neurontin). Continue management per PCP. 6. Psoriasis [...] on current medications. Continue management per PCP. 10. Adrenal insufficiency Labs obtained 01/01/2023 reveal a significantly low cortisol level of 1.6. Most likely the patient developed adrenal insufficiency secondary immunotherapy. Steroid replacement with hydrocortisone 20 mg twice daily recommended. However, the patient did not tolerate hydrocortisone and her symptoms did not improve. She subsequently discontinued the medication. At this time we will monitor closely, and reconsider intervention if symptoms worsen. 11. Chronic fatigue The patient has a long history of chronic fatigue, most likely related to her underlying disease, extensive prior treatment, and multiple medications. Alexsander Ledezma MD documented in this encounter [facility] 04-08-2023 Miscellaneous Notes Formattin g of this note might be different from the original. [facility] website checked and validated. All prescriptions have been APPROPRIATELY filled. No suspicious activity was identified. 04/08/2023 by Juan Francisco Hutchinson APRN.LEAD SYSTEMS DEVELOPER Rx sent Juan Francisco Hutchinson APRN.LEAD SYSTEMS DEVELOPER Patient requesting refills as follows: Last ordered 03/08/2023 and 02/05/2023. Next scheduled follow up appointment 05/16/2023. Requested Prescriptions Pending Prescriptions Disp Refills oxyCODONE IR (ROXICODONE) 10 mg tab 120 tablet 0 Sig: Take 1 tablet by mouth every 6 hours as needed for pain for up to 30 days. cyclobenzaprine (FLEXERIL) 10 mg tablet 90 tablet 1 Sig: Take 1 tablet by mouth three times a day as needed for muscle spasm. Kylie Mosher RN April 08, 2023 documented in this encounter [facility] 04-01-2023 Miscellaneous Notes Formattin g of this note might be different from the original. Patient will need lab orders for Saturday04/16/23. Thanks. Jeny Robert MA documented in this encounter [facility] 03-29-2023 History of Presen t illness Narrative Subjective Patient ID: Celso Potts is a 42 y.o. female who presents for covid +. Pt seen via telehealth using real time, two way, audio and video communication in place of an office visit. Pt gave verbal consent to this visit. Pt is currently located in her home in [place]. --- Appt for Covid + --- Onset [...] capsule; Refill: 0 documented in this encounter [facility] 03-28-2023 Instructions Kylie Nunes APRN.PEDRO - 03/28/2023 [...] any runs out. documented in this encounter [facility] 03-28-2023 History of Presen t [...] difficulty swallowing and persistent hoarseness. Refer to [facility] ENT for repeat flex scope and assistance [...] or chills. Electronically signed by Kylie Nunes APRN.[facility] Respiratory [place], [facility] March 28, 2023 2:55 PM Time [...] 10/14/2013 12/21/2013 03/11/2014 Haemophilus influenzae b-meningococcal bivalent (Tou-WclUZ-NN) vaccine (MENHIBRIX) 10/14/2013 diphtheria tetanus (DT) vaccine, [...] 2023 This note was partially generated using [employer] voice recognition system, and there may be some incorrect words, spellings, and punctuation that were not noted in checking the note before saving. documented in this encounter [facility] 03-28-2023 Procedure note Associated Ord [...] TIME: 1:59 PM documented in this encounter [facility] 03-28-2023 History of Presen t illness Narrative PULM FUNCTION SMARTBLOCK: Provider: Ella Chan APRN.LEAD SYSTEMS DEVELOPER Spirometry w/BD: 1 DLCO: 1 Exhaled Nitric Oxide: 1 documented in this encounter [facility] 01-29-2023 Evaluation note Encounter Date [...] no improvement in 2 to 3 days [employer] Other 12-11-2023 Miscellaneous Notes* Telephone Encounter - Radha Song RN - 01/28/2023 1:47 PM EST Pt here for PET Benny labs for office f/u next week Please sign pended cortisol level if needed for f/u. Pt requested level Thank You! Radha Song RN [facility] Miscellaneous Notes* Telephone Encounter - [...] advise. Kristina Pete RN [facility] Miscellaneous Notes* Telephone Encounter - [...] are back to baseline. [facility] History of Present illness Narrative* Alexsander Ledezma MD - 01/01/2023 7:39 AM EST PATIENT NAME: Celso Potts DATE: 01/01/2023 PRIMARY CARE PHYSICIAN: Jose Vail MD OTHER PHYSICIANS: Dr. Cyn Ramires; Dr. Gurpreet Unger; Juan Francisco Hutchinson CNP ([facility] Pall Med), Dr. Jane Del Valle ([facility] Rad Onc), Dr. Summer Carver ([facility] Pulmonary), Dr Jaxson Gamez ([facility] Dermatology) CC: This is a 42 [...] C No.3 (B COMPLEX PLUS VITAMIN C) 84-86-09-5-300 mg cap^Take 1 tablet by mouth once [...] PCP. Alexsander Ledezma MD [facility]23 NoteHNO ID: [id number] Author: Juan Francisco Hutchinson APRN.LEAD SYSTEMS DEVELOPER Service: ? Author Type: Nurse Practitioner Type: [...] not follow up as it was in [place] and not close to her home. Keeps well hydrated because dehydration has always made these symptoms worse. She is taking gabapentin 600 mg TID. Also taking oxycodone 10 mg 3-4 times per day Denies confusion, oversedation, myoclonus, constipation Fatigued but does not sleep during the day Going out with friends and keeping busy as much as she can Modified ESAS (Lincoln Symptom Assessment Scale) Information Provided By: Patient [...] daily living, (more content not included)...[facility]10-30-2023 Miscellaneous Notes * Telephone Encounter - Mitzi Brown - 12/17/2022 2:33 PM EDT Called patient and rescheduled with PFT's to January 03 and FU with SARAH [facility] Miscellaneous Notes* Telephone Encounter - Juan Francisco Hutchinson APRN.CNP - 11/05/2022 4:38 PM EDT PDMP website checked and validated. All prescriptions have been APPROPRIATELY filled. No suspiciousactivity was identified. 11/05/2022 by Juan Francisco Hutchinson APRN.LEAD SYSTEMS DEVELOPER Rx sent - earliest fill 11/09/22 Juan Francisco Hutchinson APRN.LEAD SYSTEMS DEVELOPER * Telephone Encounter - Kylie Mosher RN [...] advise. Kylie Mosher RN [facility] Miscellaneous Notes* Telephone Encounter - Kylie Mosher RN - 10/18/2022 1:34 PM EDT Prior Authorization Documentation Prior authorization requested via Covermymeds for the following medication: Medication: Lyrica 100 mg capsules Approved and authorizes your coverage from 02/18/2022 - 02/17/2023, Insurance Company Name: [employer] Phone number: [phone] Patient ID number: [id number] Da Silva [id number] Pharmacy Name: [facility] Telephone number: [phone] Kylie Mosher RN October 18, 2022 1:38 PM documented in [facility]Cl[facility]08[facility]23 Instructions* Patient Instructions* Juan Francisco Hutchinson APRN.CNP - 10/18/2022 11:50 AM EDT Juan Francisco Hutchinson CNP Department of Palliative and Supportive Care Palliative Care - Specialty services in symptom management and support For questions or prescription refills, call: [phone] Saturday - Saturday 9AM-5PM ERVIN Corrales, RN - Test Deck Supervisor Please call 3-5 days in advance for medication refills Evenings, Weekends, Holidays: [phone] (ask for palliative medicine on-call provider) For appointments, cancellations or reschedule, call: [phone] documented in this [facility]Cl[facility]-2023 NoteHNO ID: [id number] Author: Juan Francisco Hutchinson APRN.LEAD SYSTEMS DEVELOPER Service: ? Author Type: Nurse Practitioner Type: [...] Denies confusion, oversedation, myoclonus, constipation. Modified ESAS (Lincoln Symptom Assessment Scale) Information Provided By: Patient [...] was identified. 10/18/2022 by Juan Francisco Hutchinson APRN.PEDRO Urine Screen Lab Results Component Value Date UAMPH Negative 02/24/2021 UBARB2 Negative 02/24/2021 UBENZ Negative 02/24/2021 UQBUPRE <20 01/25/2022 UQNORBUP <20 01/25/2022 UCOC2 Negative 02/24/2021 UQCANN <1 (more content not included)...[facility]08-31-2023 History of Present illness Narrative* Juan Francisco Hutchinson APRN.PEDRO - 10/18/2022 11:26 AM EDT PALLIATIVE MEDICINE [...] Denies confusion, oversedation, myoclonus, constipation. Modified ESAS (Lincoln Symptom Assessment Scale) Information Provided By: Patient [...] was identified. 10/18/2022 by Juan Francisco Hutchinson APRN.LEAD SYSTEMS DEVELOPER Urine Screen Lab Results Component Value Date [...] Urine pH, Pain Ocasio 6.3 02/24/2021 Specific Kelley,Ur Pain Ocasio 1.012 02/24/2021 Oxidants,Ur 46 02/24/2021 [...] may have been partially generated using the [employer] voice recognition system. While every effort was made to correct voice recognition errors, kindly be aware that some errors may occasionally occur. documented in this encounterCl[facility]08-[facility]-2023 Instructions* Patient Instructions* Zoila Pedersen RN - 10/18/2022 11:10 AM EDT Use warm compresses to left inner thigh daily for comfort documented in this encounterCl[facility]08-[facility]-2023 NoteHNO ID: [id number] Author: Zoila Pedersen RN Service: ? Author [...] Zoila Pedersen RN October 18, 2022 11:09 [facility]08-31-2023 History of Present illness Narrative* [...] 18, 2022 11:09 AM documented in this encounterCl[facility]08-[facility]-2023 Miscellaneous Notes* Telephone Encounter - [...] advise. Kylie Mosher RN documented in this encounterCl[facility]08-[facility]-2023 Miscellaneous Notes* Telephone Encounter - [...] advise. Flori Ford RN documented in this [facility]07-27-2023 History of Present illness Narrative* Summer [...] PFT: SPIROMETRY - BASELINE AND POST DILATOR ([id number]) - ordered on 11/03/19 [facility] [address] [address] [place] [address] Test Date: 2019-11-03 Pat Name: CELSO POTTS Department: Room: Gender: Female Turn Out Worker: Perla Baker : 1980 Requested By: Order Number: [id number] Reading MD: Justin Moreno Interpretive Statements PRE [...] 38 .4 FIVC L 2.35 2.35 0.0 QGX97-31% L/s 2.36 2.36 3.81 5.55 61.8 3.00 78.7 27.2 TGM789% sec 7.37 5.99 -18.7 FETPEF sec 0.07 [...] , PFT that day Summer Carver MD, [facility] [place] [facility] [place] documented in this encounterCl[facility]07-27-2023 NoteHNO ID: [id number] Author: Summer Carver MD Service: ? Author [...] PFT: SPIROMETRY - BASELINE AND POST DILATOR ([id number]) - ordered on 11/03/19 [facility] [address] [place] [address] Test Date: 2019-11-03 Pat Name: CELSO POTTS Department: Room: Gender: Female Turn Out Worker: Perla Baker : 1980 Requested By: Order Number: [id number] Reading MD: Justin Moreno Interpretive Statements PRE [...] 38 .4 FIVC L 2.35 2.35 0.0 NTE65-43% L/s 2.36 2.36 3.81 5.55 61.8 3.00 78.7 27.2 MZU465% sec 7.37 5.99 -18.7 FETPEF sec 0.07 0.11 68.2 VBe%FV % 4 5 25.4 VBEex L 0.10 0.12 23.6 FIVC/FVC % 96 98 1.6 ----- ----- ----- ----- ----- ----- ----- ----- FRCpl L 1.31 2.36 3.43 4.49 38.3 ERV L 0.44 (more content not included)...[facility]07-05-2023 Instructions * Patient Instructions* Gunjan Joya LPN - 08/22/2022 2:50 PM EDT Follow up with Dr. Ramires in the beginning of November Patient will schedule PET scan documented in this encounterCl[facility]07-[facility]23 History of Present illness Narrative* [...] pneumonitis She saw Dr. Alejandro sarmiento at [facility] for 2nd opinion cell([phone]) She agreed with out plan and recommended [...] DATA CBC, CMP, TSH were reviewed in [facility]. PET scan report and images were reviewed in [facility]. Results werediscussed with patient and [...] FACP CC: Jose Parra documented in this encounterCl[facility]07-[facility]-2023 NoteHNO ID: [id number] Author: Cyn Ramires MD Service: ? Author [...] pneumonitis She saw Dr. Alejandro sarmiento at [facility] for 2nd opinion cell([phone]) She agreed with out plan and recommended [...] short (more content not included)... [facility]06-27-2023 Miscellaneous Notes* Telephone Encounter - Juan Francisco Hutchinson APRN.PEDRO - 08/14/2022 1:29 PM EDT [facility] website checked and validated. All prescriptions have been APPROPRIATELY filled. No suspiciousactivity was identified. 08/14/2022 by Juan Francisco Hutchinson APRN.LEAD SYSTEMS DEVELOPER Rx sent Juan Francisco Hutchinson APRN.LEAD SYSTEMS DEVELOPER * Telephone Encounter - Kristina Pete RN - 08/13/2022 5:21 PM EDT Patient phones requesting refills as follows: Requested Prescriptions Pending Prescriptions Disp Refills oxyCODONE IR (ROXICODONE) 10 mg tab 120 tablet 0 Sig: Take 1 tablet by mouth every 4 hours as needed (moderate-severe cancer pain) for up to 30 days. Please review and advise. Kristina Pete RN documented in this encounterCl[facility]06-27-2023 NoteHNO ID: [id number] Author: Radha Song RN Service: ? Author [...] Potts DATE: August 14, 2022 TIME: 10:58 [facility]06-27-2023 NoteHNO ID: [id number] Author: RT Anaya(R) Service: ? Author Type: Technologist Type: Progress [...] 1109 PATIENT DISCHARGED TO: Ambulatory patient, left [place] department area. A Diagnostic radioactive procedure has taken place, with no further precautions necessary other than routine body substance precautions. More information regarding radiation safety can be found using this link: [email or web address] SIGNATURE: RT Anaya(R) PATIENT NAME: Celso Potts DATE: August 14, 2022 TIME: 11:23 AM PAGER/CONTACT #:[facility]06-16-2023 Miscellaneous Notes* Telephone Encounter - Ella Chan [...] her at another time. documented in this encounterCl[facility]06-14-2023 Instructions* Patient Instructions* Ella Chan APRN.CNP - [...] sample in cup provided. documented in this encounterClinton [facility]06-14-2023 History of Present illness Narrative* [...] or chills. Electronically signed by Ella Chan APRN.[facility] Respiratory [place], [facility] July 31, 2022 HPI: Celso Potts [...] breath at rest. She does have occasional JEO. Always has chest tightness. Duonebs helps a [...] listed in the HPI Modified Medical Research [place] Dyspnea Scale (MMRC) I only get breathless [...] C No.3 (B COMPLEX PLUS VITAMIN C) 83-04-14-5-300 mg cap Take 1 tablet by mouth [...] Sclerosis Mother Coronary Artery Disease Maternal Grandfather [place] age 36 Coronary Artery Disease Paternal Grandfather [...] 10/14/2013 12/21/2013 03/11/2014 Haemophilus influenzae b-meningococcal bivalent (Bxo-IxyRC-HY) vaccine (MENHIBRIX) 10/14/2013 diphtheria tetanus (DT) vaccine, [...] DIAGNOSTICS & IMAGING: (Reviewed & updated by nj 07/31/2022) PFTs 11/03/2019 IMPRESSION: Spirometry shows no [...] fatty infiltration. No evidence of adrenal mass.. Stress Analyst (topogram) images: No additional findings. YOGESH DAVIS [...] unlikely to be related to lymphoma RESULT: Stress Analyst (topogram) images: No additional findings. - Mediastinum [...] which included preparing to see the patient, [id number] patient care, completing clinical documentation, obtaining and/or reviewing separately obtained history, performing a medically appropriate examination, counseling and educating the pat ient/family/caregiver, and ordering medications, tests, or procedures. documented in this encounterClinton [facility] Hospital06-14-2023 NoteHNO ID: [id number] Author: Ella Chan APRN.CNP Service: ? Author [...] or chills. Electronically signed by Ella Chan APRN.[facility] Respiratory [place], [facility] July 31, 2022 HPI: Celso Potts [...] WO IVCON (more content not included)...[facility] 07-31-2022 NoteHNO ID: [id number] Author: Nova Bridges APRN.LEAD SYSTEMS DEVELOPER Service: ? Author Type: Nurse Practitioner Type: [...] C No.3 (B COMPLEX PLUS VITAMIN C) 01-42-05-5-300 mg cap Take 1 tablet by mouth [...] and smoking (more content not included)...[facility]06-01-2023 History of Present illness Narrative* Juan Francisco Hutchinson, LORY.LEAD SYSTEMS DEVELOPER - 07/19/2022 8:15 AM EDT PALLIATIVE MEDICINE [...] bilateral lung rodriguez. Finished steroids and antibiotics. Lena very good after this but then as [...] relaxants. Denies confusion, oversedation, myoclonus. Modified ESAS (Lincoln Symptom Assessment Scale) Information Provided By: Patient [...] was identified. 07/19/2022 by Juan Francisco Hutchinson APRN.LEAD SYSTEMS DEVELOPER Urine Screen Lab Results Component Value Date [...] Urine pH, Pain Ocasio 6.3 02/24/2021 Specific Kelley,Ur Pain Ocasio 1.012 02/24/2021 Oxidants,Ur 46 02/24/2021 Specimen Quality, Ur Pain Ocaiso Specimen quality results within acceptable limits. 05/03/2014 [...] 3 Months in person Juan Francisco Hutchinson APRN.LEAD SYSTEMS DEVELOPER July 19, 2022 8:15 AM This note may have been partially generated using the [employer] voice recognition system. While every effort was made to correct voice recognition errors, kindly be aware that some errors may occasionally occur. documented in this encounterClinton [facility] Hospital05-31-2023 Miscellaneous Notes* Telephone Encounter - Flori Ford RN - 07/18/2022 12:09 PM EDT My chart appointment question response sent. Flori Ford RNCC Warp Changer documented in this encounterClinton Memorial Hospital05-31-2023 History of Present illness Narrative* [...] pneumonitis She saw Dr. Alejandro sarmiento at [facility] for 2nd opinion cell([phone]) She agreed with out plan and recommended [...] DATA CBC, CMP, TSH were reviewed in [facility]. PET scan report and images were reviewed in [facility]. Results werediscussed with patient and [...] FACP CC: Jose Parra documented in this encounterClinton Memorial Hospital05-31-2023 Instructions* Patient Instructions* Gunjan Joya LPN - 07/18/2022 11:26 AM EDT Follow up with Dr. Ramires 08/14 at 9:50a PET scan a few days prior documented in this encounterClinton Memorial Hospital05-30-2023 History of Present illness Narrative* RT Jabier(Junior) - 07/17/2022 1:24 PM EDT Radiology Service [...] 17, 2022 1:24 PM documented in this encounterClinton Memorial Hospital05-30-2023 Miscellaneous Notes* Telephone Encounter - Juan Francisco Hutchinson APRN.PEDRO - 07/17/2022 11:55 AM EDT PDMP website checked and validated. All prescriptions have been APPROPRIATELY filled. No suspiciousactivity was identified. 07/17/2022 by Juan Francisco Hutchinson APRN.LEAD SYSTEMS DEVELOPER Rx sent Juan Francisco Hutchinson APRN.CNP * [...] advise. Kylie Mosher RN documented in this encounterClinton Memorial Hospital04-28-2023 Miscellaneous Notes* Telephone Encounter - [...] medication in stock and I spoke with director of pharmacy [place] who states they have 1 box in stock. Please advise. * Telephone Encounter - HILARY Dougherty - 06/13/2022 1:16 PM EDT Celso Potts called today. : 1980 Allergies: Chlorhexidine and Sulfa (Sulfonamide Antibiotics) (home) [phone] (cell) Reason for call: Patient states that at the last office visit 06/04/22 the provider was going to call in DUONEB. She states it was not called in . Please advise. e- [id number] [place] [address] - [address] [place] [phone] [id number] [address] [facility] [id number] Patient last appointment: 06/04/2022 The patients preferred pharmacy has been captured for this encounter? yes HILARY Dougherty documented in this encounterClinton Memorial Hospital04-25-2023 Miscellaneous Notes* Telephone Encounter - Juan Francisco Hutchinson APRN.CNP - 06/12/2022 12:06 PM EDT PDMP website checked and validated. All prescriptions have been APPROPRIATELY filled. No suspiciousactivity was identified. 06/12/2022 by Juan Francisco Hutchinson APRN.CNP Rx sent Juan Francisco Hutchinson APRN.PEDRO * Telephone Encounter - Kylie Mosher [...] advise. Kylie Mosher RN documented in this encounterClinton Memorial Hospital04-25-2023 Instructions* Patient Instructions* Gunjan Joya LPN - 06/12/2022 11:09 AM EDT Pt will schedule CT Follow up with Dr. Ramires 07/17 or 07/18 Schedule treatment 07/24 documented in this encounterClinton Memorial Hospital04-25-2023 Nurse Note* Vannessa Lopez Ma - 06/12/2022 10:50 AM EDT Called patient and got the voice mail. Left message to remind patient about the vv scheduled today at 10:50 am with documented in this encounterClinton Memorial Hospital04-25-2023 History of Present illness Narrative* Cyn Ramires MD - 06/12/2022 10:45 AM EDT [facility] VIS[facility] This visit is a [facility] encounter which required patient- provider interaction for the medical decision making as documented below. Persons Present: patient I have communicated my name and active licensure. The patient s identity and physical location wereverified at the time of this visit. Celso Potts or their legal signs and displays sales representative has been informed ofthe risks and benefits of -- and alternatives to -- treatment through a remote evaluation and consents to proceed with the evaluation remotely. Total Time Spent: 5-10 minutes on this telephone encounter HISTORY REVIEWED (electronic chart updated): - medical history - medications - allergies Interval history: Patient tried to log into [employer] video visit virtual visit. Was not able [...] resuming Cyn Ramires MD documented in this encounterClinton Memorial Hospital04-13-2023 History of Present illness Narrative* Teresa Doverica, RT(R) - 05/31/2022 8:00 AM EDT Radiology [...] PERIPHERAL IV DATA: Not applicable SIGNED BY: Katarzyna Dover RT(R) May 31, 2022 7:59 AM documented in this encounterClinton Memorial Hospital04-03-2023 History of Present illness Narrative* Jane Del Valle MD - 05/21/2022 9:28 AM EDT No show. Jane Del Valle MD, MSc, MRCP, FRCR, DABR Radiation Oncology Staff Physician May 21, 2022 9:28 AM documented in this encounterClinton Memorial Hospital03-08-2023 Miscellaneous Notes* Telephone Encounter - Char Elder RN - 04/25/2022 2:13 PM EST [...] questions or concerns or Radiation Oncology Fellow Acupuncture Physician after 5pm and on weekends for urgent issues. Patient verbalized understanding of when to seek medical attention and after hours number protocol. Follow up appointment: Reminded patient of virtual visit on 05/18/2022 with Sarah Carranza, RN documented in this encounterClinton Memorial Hospital03-06-2023 Instructions* Patient Instructions* Juan Francisco Hutchinson APRN.CNP - 04/23/2022 10:30 AM EST Juan Francisco Hutchinson CNP Department of Palliative and Supportive Care Palliative Care - Specialty services in symptom management and support For questions or prescription refills, call: [phone] Saturday - Saturday 9AM-5PM ERVIN Corrales, RN - Test Deck Supervisor Please call 3-5 days in advance for medication refills Evenings, Weekends, Holidays: [phone] (ask for palliative medicine on-call provider) For appointments, cancellations or reschedule, call: [phone] documented in this encounterClinton Memorial Hospital03-06-2023 History of Present illness Narrative* [...] as weather changes to spring. Modified ESAS (Lincoln Symptom Assessment Scale) Information Provided By: Patient [...] was identified. 04/23/2022 by Juan Francisco Hutchinson APRN.LEAD SYSTEMS DEVELOPER Urine Screen Lab Results Component Value Date [...] Urine pH, Pain Ocasio 6.3 02/24/2021 Specific Kelley,Ur Pain Ocasio 1.012 02/24/2021 Oxidants,Ur 46 02/24/2021 [...] Months in person Juan Francisco Hutchinson APRN.CNP April 23, 2022 9:56 AM This note may have been partially generated using the [employer] voice recognition system. While every effort was made to correct voice recognition errors, kindly be aware that some errors may occasionally occur. documented in this encounterClinton Memorial Hospital03-03-2023 Miscellaneous Notes* Telephone Encounter - Char Elder RN - 04/20/2022 2:51 PM EST [...] patient of virtual visit on 05/18/2022 with Jane Del Valle M.D. Char MUELLER, RN documented in this encounterClinton Memorial Hospital02-27-2023 Miscellaneous Notes* Telephone Encounter - Juan Francisco Hutchinson APRN.LEAD SYSTEMS DEVELOPER - 04/16/2022 1:38 PM EST PDMP website checked and validated. All prescriptions have been APPROPRIATELY filled. No suspiciousactivity was identified. 04/16/2022 by Juan Francisco Hutchinson APRN.LEAD SYSTEMS DEVELOPER Rx sent Juan Francisco Hutchinson APRN.LEAD SYSTEMS DEVELOPER * Telephone Encounter - Kylie Mosher RN [...] advise. Kylie Mosher RN documented in this encounterClinton Memorial Hospital02-22-2023 History of Present illness Narrative* Jane Del Valle MD - 04/11/2022 12:00 AM EST CELSO POTTS [id number] 04/11/2022 [facility] Department of Radiation Oncology [facility] RADIATION ONCOLOGY: COMPLETION NOTE DATE OF SIMULATION: [...] Resident Physician Gus Patricio M.D. Staff Physician Jane Del Valle M.D 31:47 PM Electronically Signed cc: Jose Vail MD [address] [place] [address] [place] [address] [address] [facility] [address] documented in this encounterClinton Memorial Hospital02-06-2023 History of Present illness Narrative* Jane Del Valle MD - 03/26/2022 11:25 AM [...] medical record and/or letter via U.S. Mail. [facility] for allowing us to participate in the care of this individual. I spent over 50% of a total yiwq-hz-cayt time of 60-80 minutes, counseling/coordinating patient care. Jane Del Valle MD, MSc, MRCP, FRCR, DABR Radiation Oncology Staff Physician March 26, 2022 11:25 AM documented in this encounterClinton Memorial Hospital02-03-2023 Nurse Note* Zoila Lane LPN - 03/23/2022 9:18 AM EST Radiation Oncology Nursing Note PATIENT NAME: Celso Potts PATIENT [facility] FACILITY/LOCATION: [facility] PROCEDURE: Contrast Injection for CT Simulation Safety [...] NAME: Celso Potts PATIENT March 23, 2022 [facility] FACILITY/LOCATION: [facility] READINESS TO LEARN Cognitive Ability: Alert and [...] need for 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 Was KP approved? No KP completed and on 03/07/22 scored 0 distress. Signed by: Zoila Lane LPN documented in this encounterClinton Memorial Hospital02-03-2023 History of Present illness Narrative* [facility] Provider - 03/23/2022 12:00 AM EST CELSO POTTS [id number] 03/23/2022 [facility] Department of Radiation Oncology [facility] RADIATION ONCOLOGY - Therapist Injection Note Procedure: [...] Disposition: HOME Therapist: magali documented in this encounterClinton Memorial Hospital02-03-2023 History of Present illness Narrative* Jane Del Valle MD - 03/23/2022 12:00 AM EST CELSO POTTS [id number] 03/23/2022 [facility] Department of Radiation Oncology Treatment Planning [...] distribution, and/or ports and DVH. Electronically Signed Jane Del Valle M.D. 37:10 AM documented in this encounterClinton Memorial Hospital02-02-2023 Miscellaneous Notes* Telephone Encounter - [...] radiation. Dary Gonzalez RN documented in this encounterClinton Memorial Hospital01-29-2023 History of Present illness Narrative* Jane Del Valle MD - 03/18/2022 11:48 PM [...] C No.3 (B COMPLEX PLUS VITAMIN C) 92-17-95-5-300 mg cap^Take 1 tablet by mouth once [...] medical record and/or letter via U.S. Mail. [facility] for allowing us to participate in the care of this individual. I spent over 50% of a total pgmj-di-edxv time of 60-80 minutes, counseling/coordinating patient care. Signed by: Jane Del Valle MD, MSc, MRCP, FRCR, DABR Radiation Oncology Staff Physician March 18, 2022 11:55 PM cc: Jose Vial [address] [place] [address] [place] [address] No referring provider defined for this encounter. documented in this encounterClinton Memorial Hospital01-26-2023 Miscellaneous Notes* Telephone Encounter - [...] was identified. 03/15/2022 by Juan Francisco Hutchinson APRN.LEAD SYSTEMS DEVELOPER Rx sent Juan Francisco Hutchinson APRN.LEAD SYSTEMS DEVELOPER * Telephone Encounter - Flori Ford RN [...] advise. Flori Ford RN documented in this encounterClinton Memorial Hospital01-18-2023 Instructions* Patient Instructions* Mackenzie Woods LPN - 03/07/2022 11:47 AM EST Unarrive tx today Schedule Office visit with Dr Ramires 03/28/22 @11:30am per Dr Ramires documented in this encounterClinton Memorial Hospital01-18-2023 History of Present illness Narrative* [...] pneumonitis She saw Dr. Alejandro sarmiento at [facility] for 2nd opinion cell([phone]) She agreed with out plan and recommended [...] DATA CBC, CMP, TSH were reviewed in [facility]. PET scan report and images were reviewed in [facility]. Results werediscussed with patient and [...] FACP CC: Jose Parra documented in this encounterClinton Memorial Hospital12-08-2022 Instructions* Patient Instructions* Juan Francisco Hutchinson APRN.PEDRO - 01/25/2022 2:57 PM EST Juan Francisco Hutchinson NP-C Department of Palliative and Supportive Care Palliative Care - Specialty services in symptom management and support For questions or prescription refills, call: [phone] Saturday - Saturday 9AM-5PM ERVIN Corrales, RN - Test Deck Supervisor Please call 3-5 days in advance for medication refills Evenings, Weekends, Holidays: [phone] (ask for palliative medicine on-call provider) For appointments, cancellations or reschedule, call: [phone] documented in this encounterClinton Memorial Hospital12-08-2022 NoteHNO ID: [id number] Author: Juan Francisco Hutchinson APRN.PEDRO Service: ? [...] following for symptom control needs. Subjective Last [facility] care visit 10/26/21 Presents today alone. Reports [...] treadmill. She will be meeting with a head athletic trainer/strength coach to better understand the equipment upcoming. Has had some nausea since starting doxy for acne. Responsive to Compazine. Modified ESAS (Lincoln Symptom Assessment Scale) Information Provided By: Patient [...] was identified. 01/25/2022 by Juan Francisco Hutchinson APRN.LEAD SYSTEMS DEVELOPER Urine Screen Lab Results Component Value Date [...] 02/24/2021 Methamphetamine Q (more content not included)...[id number] History of Present illness Narrative* Juan Francisco Hutchinson APRN.LEAD SYSTEMS DEVELOPER - 01/25/2022 10:55 AM EST PALLIATIVE MEDICINE [...] treadmill. She will be meeting with a head athletic trainer/strength coach to better understand the equipment upcoming. Has had some nausea since starting doxy for acne. Responsive to Compazine. Modified ESAS (Lincoln Symptom Assessment Scale) Information Provided By: Patient [...] was identified. 01/25/2022 by Juan Francisco Hutchinson APRN.LEAD SYSTEMS DEVELOPER Urine Screen Lab Results Component Value Date [...] Urine pH, Pain Ocasio 6.3 02/24/2021 Specific Kelley,Ur Pain Ocasio 1.012 02/24/2021 Oxidants,Ur 46 02/24/2021 [...] 25, 2022 10:55 AM documented in this encounterClinton Memorial Hospital12-05-2022 Miscellaneous Notes* Telephone Encounter - Kylie Mosher RN - 01/22/2022 10:54 AM EST Pharmacy requesting refills as follows: Next pm f/u appt 01/25/2022 Requested Prescriptions Pending Prescriptions Disp Refills baclofen (LIORESAL) 5 mg tablet [Pharmacy Med Name: BACLOFEN 5 MG TABLET] 90 tablet 2 Sig: take 1 tablet by mouth three times a day Please review and advise. Kylie oMsher RN documented in this encounterClinton Memorial Hospital11-30-2022 Miscellaneous Notes* Telephone Encounter - Gunjan Joya LPN - 01/17/2022 9:10 AM EST Spoke with patient, rescheduled appt for tomorrow documented in this encounterClinton Memorial Hospital11-29-2022 Miscellaneous Notes* Telephone Encounter - Juan Francisco Hutchinson APRN.LEAD SYSTEMS DEVELOPER - 01/16/2022 2:34 PM EST PDMP website checked and validated. All prescriptions have been APPROPRIATELY filled. No suspiciousactivity was identified. 01/16/2022 by Juan Francisco Hutchinson APRN.LEAD SYSTEMS DEVELOPER Rx sent Juan Francisco Hutchinson APRN.LEAD SYSTEMS DEVELOPER * Telephone Encounter - Kristina Pete RN - 01/16/2022 12:48 PM EST Patient phones requesting refills as follows: Requested Prescriptions Pending Prescriptions Disp Refills oxyCODONE IR (ROXICODONE) 10 mg tab 120 tablet 0 Sig: Take 1 tablet by mouth every 4 hours as needed (moderate-severe cancer pain) for up to 30 days. Please review and advise. Kristina Pete RN documented in this encounterClinton Memorial Hospital11-15-2022 Miscellaneous Notes* Telephone Encounter - [...] RN January 02, 2022 documented in this encounterClinton Memorial Hospital11-09-2022 History of Present illness Narrative* Sylvia Mancilla APRN.LEAD SYSTEMS DEVELOPER - 12/27/2021 9:30 AM EST Oncology Progress [...] pneumonitis She saw Dr. Alejandro sarmiento at [facility] for 2nd opinion cell([phone]) She agreed with out plan and recommended [...] and TSH, sed rate were reviewed in [facility]. ASSESSMENT AND PLAN: 1. Relapsed [...] 2021) purpose for the visit. Sylvia Mancilla APRN.PEDRO Hematology/Oncology [facility]/ [facility] [phone] CC: Jose Parra documented in this encounterClinton Memorial Hospital10-31-2022 Miscellaneous Notes* Telephone Encounter - [...] advise. Kylie Mosher RN documented in this encounterClinton Memorial Hospital10-20-2022 Instructions* Patient Instructions* Nova Bridges [...] under eye as needed documented in this encounterClinton Memorial Hospital10-20-2022 History of Present illness Narrative* [...] C No.3 (B COMPLEX PLUS VITAMIN C) 14-56-47-5-300 mg cap Take 1 tablet by mouth [...] Past Histories independently gathered by the clinical director decision support and the remaining scribed note accurately describes my personal service to the patient. Nova Bridges APRN.CNP December 07, 2021 9:39 AM I spent a total of 25 minutes on the date of the service which included irdm-ok-cywr patient care, completing clinical documentation, performing a medically appropriate examination, counseling and educating the patient/family/caregiver, and ordering medications, tests, or procedures. documented in this encounterClinton Memorial Hospital09-28-2022 History of Present illness Narrative* [...] pneumonitis She saw Dr. Alejandro sarmiento at [facility] for 2nd opinion cell([phone]) She agreed with out plan and recommended [...] and TSH, sed rate were reviewed in [facility]. ASSESSMENT AND PLAN: 1. Relapsed [...] FACP CC: Jose Parra documented in this encounterClinton Memorial Hospital09-26-2022 Miscellaneous Notes* Telephone Encounter - Jeny Nava RN - 11/13/2021 8:35 AM EDT I have pended a CBC for Celso that she requested with her other labs. Please sign if agreeable. Thank you, MAE Valentin [facility] documented in this encounterClinton Memorial Hospital09-08-2022 NoteHNO ID: [id number] Author: Juan Francisco Hutchinson APRN.PEDRO Service: ? [...] upcoming PET scan will show. Modified ESAS (Lincoln Symptom Assessment Scale) Information Provided By: Patient [...] was identified. 10/26/2021 by Juan Francisco Hutchinson APRN.CNP Urine Screen Lab Results Component Value (more content not included)...[id number] History of Present illness Narrative* Juan Francisco Hutchinson APRN.CNP - 10/26/2021 11:07 AM EDT PALLIATIVE MEDICINE [...] upcoming PET scan will show. Modified ESAS (Lincoln Symptom Assessment Scale) Information Provided By: Patient [...] was identified. 10/26/2021 by Juan Francisco Hutchinson APRN.LEAD SYSTEMS DEVELOPER Urine Screen Lab Results Component Value Date [...] Urine pH, Pain Ocasio 6.3 02/24/2021 Specific Kelley,Ur Pain Ocasio 1.012 02/24/2021 Oxidants,Ur 46 02/24/2021 [...] 26, 2021 11:07 AM documented in this encounterClinton Memorial Hospital09-07-2022 History of Present illness Narrative* [...] pneumonitis She saw Dr. Alejandro sarmiento at [facility] for 2nd opinion cell([phone]) She agreed with out plan and recommended [...] spleen, liver and lymph node at main pelsor Interval history: Ms. oPtts is here for follow up and C#31 pembro. Patient went to [place] ED 09/20/21 with fever, chills,fatigue. Tested positive [...] and TSH, sed rate were reviewed in [facility]. ASSESSMENT AND PLAN: 1. Relapsed [...] Primaquine and clindamycin follow up with Dr. Sigaal ID was On dapsone for prophylaxis. stopped [...] visit. Sylvia Mancilla APRN.CNP Hematology/Oncology [facility] [phone] CC: Jose Parra documented in this encounterClinton Memorial Hospital09-07-2022 Instructions* Patient Instructions* Sylvia Mancilla APRN.CNP - 10/25/2021 10:00 AM EDT Call the office with questions or concerns. Go to ER with any signs of infection like fever of 100.4 or higher. documented in this encounterClinton Memorial Hospital08-29-2022 Miscellaneous Notes* Telephone Encounter - [...] advise. Kristina Pete RN documented in this encounterClinton Memorial Hospital08-15-2022 Miscellaneous Notes* Telephone Encounter - [...] DAILY Elaine Enriquez LPN documented in this encounterClinton Memorial Hospital08-05-2022 Miscellaneous Notes* Telephone Encounter - Caro Srinivasan RN - 09/22/2021 12:11 PM EDT EMERGENCY ROOM CALL BACK Today's date: September 22, 2021 Patient identified by name and date of . YES Primary Cancer Diagnosis: CLL Reason for Emergency Room Visit: fever Time of day presented to Emergency Room 1951 If Mon-Saturday during business hours: N/A Patient with any new symptom issues: No Psychosocial Risk Factors: None FOLLOW UP Patient reminded of her follow-up appointment with [facility] provider, 10/04/21 Keytruda infusion and then 10/25 OV E Gross and infusion: Yes Next Test Deck Supervisor outreach with patient scheduled? No, appointment made PATIENT EDUCATION/REINFORCEMENT Patient has information of when to seek Medical Attention? YES Patient has information of after hours and weekend phone number? YES Caro Srinivasan RN documented in this encounterClinton Memorial Hospital07-19-2022 History of Present illness Narrative* Nova Bridges APRN.LEAD SYSTEMS DEVELOPER - 09/05/2021 5:43 PM EDT SKIN EXAM [...] C No.3 (B COMPLEX PLUS VITAMIN C) 92-97-47-5-300 mg cap Take 1 tablet by mouth [...] or without short course of oral antibiotics buttermaker management -continue topical clindamycin 1% lotion -antibacterial [...] The patient is seen and examined by Noav Bridges CNP and the following reflects his/her service. Scribed by Janice Miller MA I agree with the Chief Complaint, ROS, and Past Histories independently gathered by the clinical director decision support and the remaining scribed note accurately describes my personal service to the patient. Nova Bridges APRN.CNP September 05, 2021 5:59 PM documented in this encounterClinton Memorial Hospital07-18-2022 Miscellaneous Notes* Telephone Encounter - Flori Ford RN - 09/04/2021 11:32 AM EDT Pall med nurse call to patient and inquired if she was with [facility] Palliative care and she reports her [...] advise. Flori Ford RN documented in this encounterClinton Memorial Hospital06-28-2022 Miscellaneous Notes* Telephone Encounter - Juan Francisco Rai APRN.CNP - 08/15/2021 12:36 PM EDT PDMP website checked and validated. All prescriptions have been APPROPRIATELY filled. No suspiciousactivity was identified. Oxycodone e-scribed. Juan Francisco Rai APRN.CNP * Telephone Encounter - Kristina Pete RN - 08/15/2021 7:50 AM EDT Patient had requested referral to [facility] palliative care 08/03. TC spoke to Celso Potts patient is not able to start care with [facility] until middle of August. Will need refills until she establishes. Patient phones requesting refills as follows: Pending Prescriptions Disp Refills OXYCODONE 10 MG TABLET 120 tablet 0 Sig: Take 1 tablet by mouth every 4 hours as needed (moderate-severe cancer pain) for up to 30 days. SHELBIE Class: C-II KAREN: No Please review and advise. Kristina Pete RN documented in this encounterClinton Memorial Hospital06-16-2022 Miscellaneous Notes* Telephone Encounter - Kristina Pete RN - 08/03/2021 8:21 AM EDT Patient has requested palliative services closer to her home referral faxed to [facility] palliative care. [id number] Kristina Pete RN documented in this encounterClinton Memorial Hospital06-10-2022 History of Present illness Narrative* Nova Bridges APRN.LEAD SYSTEMS DEVELOPER - 07/28/2021 7:59 AM EDT SKIN EXAM [...] C No.3 (B COMPLEX PLUS VITAMIN C) 23-20-04-5-300 mg cap Take 1 tablet by mouth [...] 300 mg BID until completed (from ED) detention management -continue topical clindamycin 1% lotion -antibacterial [...] Past Histories independently gathered by the clinical director decision support and the remaining scribed note accurately describes my personal service to the patient. Nova Bridges APRN.CNP July 28, 2021 8:03 AM documented in [facility] encounterCl[facility] Miscellaneous Notes* Telephone Encounter - [...] advise. Flori Ford RN documented in this encounterCl[facility]05-13-2022 Miscellaneous Notes* Telephone Encounter - Joanne [...] No Elaine Enriquez LPN documented in this encounterCl[facility]04-28-2022 Miscellaneous Notes* Telephone Encounter - Juan Francisco Hutchinson APRN.PEDRO - 06/15/2021 5:05 PM EDT PDMP website checked and validated. All prescriptions have been APPROPRIATELY filled. No suspiciousactivity was identified. 06/15/2021 by Juan Francisco Hutchinson APRN.PEDRO Rx sent Juan Francisco Hutchinson APRN.LEAD SYSTEMS DEVELOPER * Telephone Encounter - Kristina Pete RN - 06/15/2021 4:43 PM EDT Patient phones requesting refills as follows: Pending Prescriptions Disp Refills OXYCODONE 10 MG TABLET 120 tablet 0 Sig: Take 1 tablet by mouth every 4 hours as needed (moderate-severe cancer pain) for up to 30 days. SHELBIE Class: C-II KAREN: No Please review and advise. Kristina Pete RN documented in this encounterClinton [facility]04-27-2022 History of Present illness Narrative* [...] pneumonitis She saw Dr. Alejandro sarmiento at [facility] for 2nd opinion cell([phone]) She agreed with out plan and recommended [...] and TSH, sed rate were reviewed in [facility]. ASSESSMENT AND PLAN: 1. Relapsed [...] FACP CC: Jose Parra documented in this encounterCl[facility]04-01-2022 Miscellaneous Notes* Telephone Encounter - Marilyn Hughes RN - 05/19/2021 9:09 AM EDT Pt with c/o sinus congestion, headache, cough, fatigue, T Max 101.3 last evening, then 'fever broke' afebrile this am. Dr Ramires notified and Z-pack sent to preferred pharmacy. Pt aware to call for worsening symptoms or temp >100.4 . Verbalized acknowledgement. Marilyn Hughes RN documented in this encounterCl[facility]03-30-2022 Miscellaneous Notes* Telephone Encounter - RHETT Mesa - 05/17/2021 2:31 PM EDT SOCIAL WORK FOLLOW UP NOTE: CANCER CENTER Date of service:05/17/2021 Celso Potts is [...] resource F/U APPOINTMENT: PRN RHETT Mesa-S Senior Veterinary Technician Instructor [facility] Oncology documented in this encounterClinton [facility]03-30-2022 Miscellaneous Notes* Telephone Encounter - RHETT Mesa - 05/17/2021 1:58 PM EDT SOCIAL WORK FOLLOW UP NOTE: CANCER CENTER Date of service:05/17/2021 Celso Potts is being seen for a follow up social work visit. Today's visit includes: patient TOPICS ADDRESSED: mental health needs Advised patient that SRINIVASAN Garsia from [facility] asked me to give patient local behavioral health resources. I forwarded this request to MATILDE Spear, who is a behavior health social worker psychiatric and is expert in these types of resources. I advised patient that Katarzyna should be reaching out to her. PLAN: Continue follow up as needed F/U APPOINTMENT: PRN RHETT Mesa-S Senior Veterinary Technician Instructor [facility] documented in this encounterClinton [facility] Hospital03-30-2022 Instructions* Patient Instructions* Juan Francisco Hutchinson APRN.CNP - 05/17/2021 11:35 AM EDT Juan Francisco Hutchinson NP-C Department of Palliative and Supportive Care Palliative Care - Specialty services in symptom management and support For questions or prescription refills, call: Saturday - Saturday 9AM-5PM Chantal Newberry RN, BSN - Test Deck Supervisor [phone] Please call 5 days in advance Evenings, Weekends, Holidays: [phone] (ask for palliative medicine on-call provider) For appointments, cancellations or reschedule, call: [phone] documented in this encounterClinton [facility] Hospital03-30-2022 History of Present illness Narrative* [...] (on AC). She is transferring care to [facility] for palliative care. She has previously followed with Dr. Mosquera (last appt 04/12/2020) for management of anxiety, depression, neuropathy, and pain. Subjective Celso presents today alone. Reports feeling fairly well. Recently returned from vacation with friends in [place] where she had a great time although [...] Dr. Mosquera at last visit. Modified ESAS ([place] Symptom Assessment Scale) Information Provided By: Patient [...] was identified. 05/17/2021 by Juan Francisco Hutchinson APRN.LEAD SYSTEMS DEVELOPER Urine Screen Lab Results Component Value Date [...] Urine pH, Pain Ocasio 6.3 02/24/2021 Specific Kelley,Ur Pain Ocasio 1.012 02/24/2021 Oxidants,Ur 46 02/24/2021 [...] 17, 2021 7:01 AM documented in this encounterClinton [facility] Hospital08-31-2021 History of Past illness Narrative* Problem Noted Date Diagnosed Date Resolved Date Radiation induced neuropathy 10/18/2020 03/07/2023 Menorrhagia with regular cycle 03/15/2017 01/01/2018 Overview: Added automatically from request for surgery [id number] History of pulmonary embolism 04/25/2016 01/01/2018 Neoplastic [...] FOLLOW-UP 10/27/2012 Overview: 32 yo female from [place], [place]. Family involved with care, at bedside. plan to discharge patient home - will arrange with case management for post op care as needed - follow up in OPD in 7-10 days Post-op pain 10/27/2012 12/26/2015 Overview: currently well controlled with LICENSED THERAPIST. will start PO pain meds today 10/27. tolerating percocet, pain relatively well controlled. Hodgkin's disease with nodular sclerosis 05/27/2012 12/26/2015 Overview: Oncology history (per Dr. 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 Hodgkin's disease, unspecified 02/05/2012 05/11/2014 Vaginal bleeding 12/26/2015 Overview: --likely from thrombocytopenia. No menses in prior 8 months. 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 DEVELOPER provider after BMT Premature menopause 12/26/19 16 Postmenopausal atrophic vaginitis 12/26/2015 Dyspareunia 12/26/2015 documented as of this encounter (statuses as of 03/28/2023) [facility] History of Past illness Narrative* Problem Noted Date Diagnosed Date Resolved Date Radiation induced neuropathy 10/18/2020 03/07/2023 Menorrhagia with regular cycle 03/15/2017 01/01/2018 Overview: Added automatically from request for surgery [id number] History of pulmonary embolism 04/25/2016 01/01/2018 Neoplastic [...] FOLLOW-UP 10/27/2012 Overview: 32 yo female from [place]. Family involved with care, at bedside. plan to discharge patient home - will arrange with case management for post op care as needed - follow up in OPD in 7-10 days Post-op pain 10/27/2012 12/26/2015 Overview: currently well controlled with LICENSED THERAPIST. will start PO pain meds today 10/27. tolerating percocet, pain relatively well controlled. Hodgkin's disease with nodular sclerosis 05/27/2012 12/26/2015 Overview: Oncology history (per Dr. 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 Hodgkin's disease, unspecified 02/05/2012 05/11/2014 Vaginal bleeding 12/26/2015 Overview: --likely from thrombocytopenia. No menses in prior 8 months. 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 DEVELOPER provider after BMT Premature menopause 12/26/19 16 Postmenopausal atrophic vaginitis 12/26/2015 Dyspareunia 12/26/2015 documented as of this encounter (statuses as of 03/28/2023) [facility] History of Past illness Narrative* Problem Noted Date Diagnosed Date Resolved Date Radiation induced neuropathy 10/18/2020 03/07/2023 Menorrhagia with regular cycle 03/15/2017 01/01/2018 Overview: Added automatically from request for surgery [id number] History of pulmonary embolism 04/25/2016 01/01/2018 Neoplastic [...] FOLLOW-UP 10/27/2012 Overview: 32 yo female from [place]. Family involved with care, at bedside. plan to discharge patient home - will arrange with case management for post op care as needed - follow up in OPD in 7-10 days Post-op pain 10/27/2012 12/26/2015 Overview: currently well controlled with LICENSED THERAPIST. will start PO pain meds today 10/27. tolerating percocet, pain relatively well controlled. Hodgkin's disease with nodular sclerosis 05/27/2012 12/26/2015 Overview: Oncology history (per Dr. 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 Hodgkin's disease, unspecified 02/05/2012 05/11/2014 Vaginal bleeding 12/26/2015 Overview: --likely from thrombocytopenia. No menses in prior 8 months. 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 DEVELOPER provider after BMT Premature menopause 12/26/19 16 Postmenopausal atrophic vaginitis 12/26/2015 Dyspareunia 12/26/2015 documented as of this encounter (statuses as of 03/28/2023) [facility] of Past illness Narrative* Problem Noted Date Diagnosed Date Resolved Date Radiation induced neuropathy 10/18/2020 03/07/2023 Menorrhagia with regular cycle 03/15/2017 01/01/2018 Overview: Added automatically from request for surgery [id number] History of pulmonary embolism 04/25/2016 01/01/2018 Neoplastic [...] FOLLOW-UP 10/27/2012 Overview: 32 yo female from [place]. Family involved with care, at bedside. plan to discharge patient home - will arrange with case management for post op care as needed - follow up in OPD in 7-10 days Post-op pain 10/27/2012 12/26/2015 Overview: currently well controlled with LICENSED THERAPIST. will start PO pain meds today 10/27. tolerating percocet, pain relatively well controlled. Hodgkin's disease with nodular sclerosis 05/27/2012 12/26/2015 Overview: Oncology history (per Dr. 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 Hodgkin's disease, unspecified 02/05/2012 05/11/2014 Vaginal bleeding 12/26/2015 Overview: --likely from thrombocytopenia. No menses in prior 8 months. 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 DEVELOPER provider after BMT Premature menopause 12/26/19 16 Postmenopausal atrophic vaginitis 12/26/2015 Dyspareunia 12/26/2015 documented as of this encounter (statuses as of 04/01/2023) [facility] of Past illness Narrative* Problem Noted Date Diagnosed Date Resolved Date Radiation induced neuropathy 10/18/2020 03/07/2023 Menorrhagia with regular cycle 03/15/2017 01/01/2018 Overview: Added automatically from request for surgery [id number] History of pulmonary embolism 04/25/2016 01/01/2018 Neoplastic [...] FOLLOW-UP 10/27/2012 Overview: 32 yo female from [place]. Family involved with care, at bedside. plan to discharge patient home - will arrange with case management for post op care as needed - follow up in OPD in 7-10 days Post-op pain 10/27/2012 12/26/2015 Overview: currently well controlled with LICENSED THERAPIST. will start PO pain meds today 10/27. tolerating percocet, pain relatively well controlled. Hodgkin's disease with nodular sclerosis 05/27/2012 12/26/2015 Overview: Oncology history (per Dr. 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 Hodgkin's disease, unspecified 02/05/2012 05/11/2014 Vaginal bleeding 12/26/2015 Overview: --likely from thrombocytopenia. No menses in prior 8 months. 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 DEVELOPER provider after BMT Premature menopause 12/26/19 16 Postmenopausal atrophic vaginitis 12/26/2015 Dyspareunia 12/26/2015 documented as of this encounter (statuses as of 04/09/2023) [facility] of Past illness Narrative* Problem Noted Date Diagnosed Date Resolved Date Radiation induced neuropathy 10/18/2020 03/07/2023 Menorrhagia with regular cycle 03/15/2017 01/01/2018 Overview: Added automatically from request for surgery [id number] History of pulmonary embolism 04/25/2016 01/01/2018 Neoplastic [...] FOLLOW-UP 10/27/2012 Overview: 32 yo female from [place]. Family involved with care, at bedside. plan to discharge patient home - will arrange with case management for post op care as needed - follow up in OPD in 7-10 days Post-op pain 10/27/2012 12/26/2015 Overview: currently well controlled with LICENSED THERAPIST. will start PO pain meds today 10/27. tolerating percocet, pain relatively well controlled. Hodgkin's disease with nodular sclerosis 05/27/2012 12/26/2015 Overview: Oncology history (per Dr. 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 Hodgkin's disease, unspecified 02/05/2012 05/11/2014 Vaginal bleeding 12/26/2015 Overview: --likely from thrombocytopenia. No menses in prior 8 months. 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 DEVELOPER provider after BMT Premature menopause 12/26/19 16 Postmenopausal atrophic vaginitis 12/26/2015 Dyspareunia 12/26/2015 documented as of this encounter (statuses as of 04/17/2023) [facility] of Past illness Narrative* Problem Noted Date Diagnosed Date Resolved Date Radiation induced neuropathy 10/18/2020 03/07/2023 Menorrhagia with regular cycle 03/15/2017 01/01/2018 Overview: Added automatically from request for surgery [id number] History of pulmonary embolism 04/25/2016 01/01/2018 Neoplastic [...] FOLLOW-UP 10/27/2012 Overview: 32 yo female from [place]. Family involved with care, at bedside. plan to discharge patient home - will arrange with case management for post op care as needed - follow up in OPD in 7-10 days Post-op pain 10/27/2012 12/26/2015 Overview: currently well controlled with LICENSED THERAPIST. will start PO pain meds today 10/27. tolerating percocet, pain relatively well controlled. Hodgkin's disease with nodular sclerosis 05/27/2012 12/26/2015 Overview: Oncology history (per Dr. 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 Hodgkin's disease, unspecified 02/05/2012 05/11/2014 Vaginal bleeding 12/26/2015 Overview: --likely from thrombocytopenia. No menses in prior 8 months. 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 DEVELOPER provider after BMT Premature menopause 12/26/19 16 Postmenopausal atrophic vaginitis 12/26/2015 Dyspareunia 12/26/2015 documented as of this encounter (statuses as of 04/19/2023) [facility] Narrative* Problem Noted Date Diagnosed Date Resolved Date Radiation induced neuropathy 10/18/2020 03/07/2023 Menorrhagia with regular cycle 03/15/2017 01/01/2018 Overview: Added automatically from request for surgery [id number] History of pulmonary embolism 04/25/2016 01/01/2018 Neoplastic (malignant) related fatigue 04/25/2016 01/01/2018 Hidradenitis suppurativa 01/17/2016 Vitamin D deficiency 06/09/2015 016 HyperCKemia 05/06/2015 12/26/2015 Elevated aldolase level 05/06/2015 08/2015 Chronic pain of both knees 05/06/2015 [...] FOLLOW-UP 10/27/2012 Overview: 32 yo female from [place]. Family involved with care, at bedside. plan to discharge patient home - will arrange with case management for post op care as needed - follow up in OPD in 7-10 days Post-op pain 10/27/2012 12/26/2015 Overview: currently well controlled with LICENSED THERAPIST. will start PO pain meds today 10/27. tolerating percocet, pain relatively well controlled. Hodgkin's disease with nodular sclerosis 05/27/2012 12/26/2015 Overview: Oncology history (per Dr. 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 Hodgkin's disease, unspecified 02/05/2012 05/11/2014 Vaginal bleeding 12/26/2015 Overview: --likely from thrombocytopenia. No menses in prior 8 months. 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 DEVELOPER provider after BMT Premature menopause 12/26/19 16 Postmenopausal atrophic vaginitis 12/26/2015 Dyspareunia 12/26/2015 documented as of this encounter (statuses as of 04/20/2023) [facility] Narrative* Problem Noted Date Diagnosed Date Resolved Date Radiation induced neuropathy 10/18/2020 03/07/2023 Menorrhagia with regular cycle 03/15/2017 01/01/2018 Overview: Added automatically from request for surgery [id number] History of pulmonary embolism 04/25/2016 01/01/2018 Neoplastic [...] FOLLOW-UP 10/27/2012 Overview: 32 yo female from [place]. Family involved with care, at bedside. plan to discharge patient home - will arrange with case management for post op care as needed - follow up in OPD in 7-10 days Post-op pain 10/27/2012 12/26/2015 Overview: currently well controlled with LICENSED THERAPIST. will start PO pain meds today 10/27. tolerating percocet, pain relatively well controlled. Hodgkin's disease with nodular sclerosis 05/27/2012 12/26/2015 Overview: Oncology history (per Dr. 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 Hodgkin's disease, unspecified 02/05/2012 05/11/2014 Vaginal bleeding 12/26/2015 Overview: --likely from thrombocytopenia. No menses in prior 8 months. 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 Family involved with care, at bedside. plan to discharge patient home - will arrange with case management for post op care as needed - follow up in OPD in 7-10 days Post-op pain 10/27/2012 12/26/2015 Overview: currently well controlled with LICENSED THERAPIST. will start PO pain meds today 10/27. tolerating percocet, pain relatively well controlled. Hodgkin's disease with nodular sclerosis 05/27/2012 12/26/2015 Overview: Oncology history (per Dr. 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 Hodgkin's disease, unspecified 02/05/2012 05/11/2014 Vaginal bleeding 12/26/2015 Overview: --likely from thrombocytopenia. No menses in prior 8 months. 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 Family involved with care, at bedside. plan to discharge patient home - will arrange with case management for post op care as needed - follow up in OPD in 7-10 days Post-op pain 10/27/2012 12/26/2015 Overview: currently well controlled with LICENSED THERAPIST. will start PO pain meds today 10/27. tolerating percocet, pain relatively well controlled. Hodgkin's disease with nodular sclerosis 05/27/2012 12/26/2015 Overview: Oncology history (per Dr. 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 Hodgkin's disease, unspecified 02/05/2012 05/11/2014 Vaginal bleeding 12/26/2015 Overview: --likely from thrombocytopenia. No menses in prior 8 months. 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 DEVELOPER provider after BMT Premature menopause 12/26/19 16 Postmenopausal atrophic vaginitis 12/26/2015 Dyspareunia 12/26/2015 documented as of this encounter (statuses as of 05/13/2023) [facility] Narrative* Problem Noted Date Diagnosed Date Resolved Date Radiation induced neuropathy 10/18/2020 03/07/2023 Menorrhagia with regular cycle 03/15/2017 01/01/2018 Overview: Added automatically from request for surgery [id number] History of pulmonary embolism 04/25/2016 01/01/2018 Neoplastic [...] FOLLOW-UP 10/27/2012 Overview: 32 yo female from [place]. Family involved with care, at bedside. plan to discharge patient home - will arrange with case management for post op care as needed - follow up in OPD in 7-10 days Post-op pain 10/27/2012 12/26/2015 Overview: currently well controlled with [employer]ER[employer]IST. will start PO pain meds today 10/27. tolerating percocet, pain relatively well controlled. Hodgkin's disease with nodular sclerosis 05/27/2012 12/26/2015 Overview: Oncology history (per Dr. 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 Hodgkin's disease, unspecified 02/05/2012 05/11/2014 Vaginal bleeding 12/26/2015 Overview: --likely from thrombocytopenia. No menses in prior 8 months. 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 provider after BMT Premature menopause 12/26/19 16 Postmenopausal atrophic vaginitis 12/26/2015 Dyspareunia 12/26/2015 documented as of this encounter (statuses as of 05/15/2023) [facility]08-[facility]-2021 History of Past illness Narrative* Problem Noted Date Diagnosed Date Resolved Date Radiation induced neuropathy 10/18/2020 03/07/2023 Menorrhagia with regular cycle 03/15/2017 01/01/2018 Overview: Added automatically from request for surgery [id number] History of pulmonary embolism 04/25/2016 01/01/2018 Neoplastic [...] FOLLOW-UP 10/27/2012 Overview: 32 yo female from [place], [place]. Family involved with care, at bedside. plan to discharge patient home - will arrange with case management for post op care as needed - follow up in OPD in 7-10 days Post-op pain 10/27/2012 12/26/2015 Overview: currently well controlled with LICENSED THERAPIST. will start PO pain meds today 10/27. tolerating percocet, pain relatively well controlled. Hodgkin's disease with nodular sclerosis 05/27/2012 12/26/2015 Overview: Oncology history (per Dr. 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 Hodgkin's disease, unspecified 02/05/2012 05/11/2014 Vaginal bleeding 12/26/2015 Overview: --likely from thrombocytopenia. No menses in prior 8 months. 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 provider after BMT Premature menopause 12/26/19 16 Postmenopausal atrophic vaginitis 12/26/2015 Dyspareunia 12/26/2015 documented as of this encounter (statuses as of 05/21/2023) [facility] History of Past illness Narrative* Problem Noted Date Diagnosed Date Resolved Date Radiation induced neuropathy 10/18/2020 03/07/2023 Menorrhagia with regular cycle 03/15/2017 01/01/2018 Overview: Added automatically from request for surgery [id number] History of pulmonary embolism 04/25/2016 01/01/2018 Neoplastic [...] FOLLOW-UP 10/27/2012 Overview: 32 yo female from [place]. Family involved with care, at bedside. plan to discharge patient home - will arrange with case management for post op care as needed - follow up in OPD in 7-10 days Post-op pain 10/27/2012 12/26/2015 Overview: currently well controlled with [employer]IC[employer]ED THERAPIST. will start PO pain meds today 10/27. tolerating percocet, pain relatively well controlled. Hodgkin's disease with nodular sclerosis 05/27/2012 12/26/2015 Overview: Oncology history (per Dr. 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 Hodgkin's disease, unspecified 02/05/2012 05/11/2014 Vaginal bleeding 12/26/2015 Overview: --likely from thrombocytopenia. No menses in prior 8 months. 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 provider after BMT Premature menopause 12/26/19 16 Postmenopausal atrophic vaginitis 12/26/2015 Dyspareunia 12/26/2015 documented as of this encounter (statuses as of 05/22/2023) [facility] History of Past illness Narrative* Problem Noted Date Diagnosed Date Resolved Date Radiation induced neuropathy 10/18/2020 03/07/2023 Menorrhagia with regular cycle 03/15/2017 01/01/2018 Overview: Added automatically from request for surgery [id number] History of pulmonary embolism 04/25/2016 01/01/2018 Neoplastic [...] FOLLOW-UP 10/27/2012 Overview: 32 yo female from [place]. Family involved with care, at bedside. plan to discharge patient home - will arrange with case management for post op care as needed - follow up in OPD in 7-10 days Post-op pain 10/27/2012 12/26/2015 Overview: currently well controlled with LICENSED THERAPIST. will start PO pain meds today 10/27. tolerating percocet, pain relatively well controlled. Hodgkin's disease with nodular sclerosis 05/27/2012 12/26/2015 Overview: Oncology history (per Dr. 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 Hodgkin's disease, unspecified 02/05/2012 05/11/2014 Vaginal bleeding 12/26/2015 Overview: --likely from thrombocytopenia. No menses in prior 8 months. 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 provider after BMT Premature menopause 12/26/19 16 Postmenopausal atrophic vaginitis 12/26/2015 Dyspareunia 12/26/2015 documented as of this encounter (statuses as of 05/30/2023) [facility] History of Past illness Narrative* Problem Noted Date Diagnosed Date Resolved Date Radiation induced neuropathy 10/18/2020 03/07/2023 Menorrhagia with regular cycle 03/15/2017 01/01/2018 Overview: Added automatically from request for surgery [id number] History of pulmonary embolism 04/25/2016 01/01/2018 Neoplastic [...] FOLLOW-UP 10/27/2012 Overview: 32 yo female from [place]. Family involved with care, at bedside. plan to discharge patient home - will arrange with case management for post op care as needed - follow up in OPD in 7-10 days Post-op pain 10/27/2012 12/26/2015 Overview: currently well controlled with LICENSED THERAPIST. will start PO pain meds today 10/27. tolerating percocet, pain relatively well controlled. Hodgkin's disease with nodular sclerosis 05/27/2012 12/26/2015 Overview: Oncology history (per Dr. 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 Hodgkin's disease, unspecified 02/05/2012 05/11/2014 Vaginal bleeding 12/26/2015 Overview: --likely from thrombocytopenia. No menses in prior 8 months. 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 provider after BMT Premature menopause 12/26/19 16 Postmenopausal atrophic vaginitis 12/26/2015 Dyspareunia 12/26/2015 documented as of this encounter (statuses as of 05/31/2023) [facility] History of Past illness Narrative* Problem Noted Date Diagnosed Date Resolved Date Radiation induced neuropathy 10/18/2020 03/07/2023 Menorrhagia with regular cycle 03/15/2017 01/01/2018 Overview: Added automatically from request for surgery [id number] History of pulmonary embolism 04/25/2016 01/01/2018 Neoplastic [...] FOLLOW-UP 10/27/2012 Overview: 32 yo female from [place]. Family involved with care, at bedside. plan to discharge patient home - will arrange with case management for post op care as needed - follow up in OPD in 7-10 days Post-op pain 10/27/2012 12/26/2015 Overview: currently well controlled with LICENSED THERAPIST. will start PO pain meds today 10/27. tolerating percocet, pain relatively well controlled. Hodgkin's disease with nodular sclerosis 05/27/2012 12/26/2015 Overview: Oncology history (per Dr. 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 Hodgkin's disease, unspecified 02/05/2012 05/11/2014 Vaginal bleeding 12/26/2015 Overview: --likely from thrombocytopenia. No menses in prior 8 months. 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 provider after BMT Premature menopause 12/26/19 16 Postmenopausal atrophic vaginitis 12/26/2015 Dyspareunia 12/26/2015 documented as of this encounter (statuses as of 05/31/2023) [facility] History of Past illness Narrative* Problem Noted Date Diagnosed Date Resolved Date Radiation induced neuropathy 10/18/2020 03/07/2023 Menorrhagia with regular cycle 03/15/2017 01/01/2018 Overview: Added automatically from request for surgery [id number] History of pulmonary embolism 04/25/2016 01/01/2018 Neoplastic [...] FOLLOW-UP 10/27/2012 Overview: 32 yo female from [place]. Family involved with care, at bedside. plan to discharge patient home - will arrange with case management for post op care as needed - follow up in OPD in 7-10 days Post-op pain 10/27/2012 12/26/2015 Overview: currently well controlled with LICENSED THERAPIST. will start PO pain meds today 10/27. tolerating percocet, pain relatively well controlled. Hodgkin's disease with nodular sclerosis 05/27/2012 12/26/2015 Overview: Oncology history (per Dr. 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 Hodgkin's disease, unspecified 02/05/2012 05/11/2014 Vaginal bleeding 12/26/2015 Overview: --likely from thrombocytopenia. No menses in prior 8 months. 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 provider after BMT Premature menopause 12/26/19 16 Postmenopausal atrophic vaginitis 12/26/2015 Dyspareunia 12/26/2015 documented as of this encounter (statuses as of 06/01/2023) [facility] History of Past illness Narrative* Problem Noted Date Resolved Date Menorrhagia with regular cycle 03/15/2017 1 03/03/2017 Overview: Added automatically from request for surgery [id number] History of pulmonary embolism 04/25/2016 Neoplastic (malignant) [...] FOLLOW-UP 10/27/20122015 Overview: 32 yo female from [place]. Family involved with care, at bedside. plan to discharge patient home - will arrange with case management for post op care as needed - follow up in OPD in 7-10 days Post-op pain 10/27/2012 12/26/2015 Overview: currently well controlled with LICENSED THERAPIST. will start PO pain meds today 10/27. tolerating percocet, pain relatively well controlled. Hodgkin's disease with nodular sclerosis 013 12/26/2015 Overview: Oncology history (per Dr. 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 Hodgkin's disease, unspecified 02/05/2012 0 05/11/2014 Vaginal bleeding 12/26/2015 Overview: --likely from thrombocytopenia. No menses in prior 8 months. 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 provider after BMT Premature menopause 12/26/2015 Postmenopausal atrophic vaginitis 12/26/2015 Dyspareunia 12/26/2015 documented as of this encounter (statuses as of 05/17/2021) [facility] History of Past illness Narrative* Problem Noted Date Resolved Date Menorrhagia with regular cycle 03/15/2017 1 03/03/2017 Overview: Added automatically from request for surgery [id number] History of pulmonary embolism 04/25/2016 Neoplastic (malignant) [...] FOLLOW-UP 10/27/20122015 Overview: 32 yo female from [place]. Family involved with care, at bedside. plan to discharge patient home - will arrange with case management for post op care as needed - follow up in OPD in 7-10 days Post-op pain 10/27/2012 12/26/2015 Overview: currently well controlled with L[employer]ED THERAPIST. will start PO pain meds today 10/27. tolerating percocet, pain relatively well controlled. Hodgkin's disease with nodular sclerosis 013 12/26/2015 Overview: Oncology history (per Dr. 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 Hodgkin's disease, unspecified 02/05/2012 0 05/11/2014 Vaginal bleeding 12/26/2015 Overview: --likely from thrombocytopenia. No menses in prior 8 months. 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 provider after BMT Premature menopause 12/26/2015 Postmenopausal atrophic vaginitis 12/26/2015 Dyspareunia 12/26/2015 documented as of this encounter (statuses as of 05/17/2021) [facility] History of Past illness Narrative* Problem Noted Date Resolved Date Menorrhagia with regular cycle 03/15/2017 1 03/03/2017 Overview: Added automatically from request for surgery [id number] History of pulmonary embolism 04/25/2016 Neoplastic (malignant) [...] FOLLOW-UP 10/27/20122015 Overview: 32 yo female from [place]. Family involved with care, at bedside. plan to discharge patient home - will arrange with case management for post op care as needed - follow up in OPD in 7-10 days Post-op pain 10/27/2012 12/26/2015 Overview: currently well controlled with LIC[employer]ED THERAPIST. will start PO pain meds today 10/27. tolerating percocet, pain relatively well controlled. Hodgkin's disease with nodular sclerosis 013 12/26/2015 Overview: Oncology history (per Dr. 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 Hodgkin's disease, unspecified 02/05/2012 0 05/11/2014 Vaginal bleeding 12/26/2015 Overview: --likely from thrombocytopenia. No menses in prior 8 months. 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 provider after BMT Premature menopause 12/26/2015 Postmenopausal atrophic vaginitis 12/26/2015 Dyspareunia 12/26/2015 documented as of this encounter (statuses as of 05/17/2021) [facility] History of Past illness Narrative* Problem Noted Date Resolved Date Menorrhagia with regular cycle 03/15/2017 1 03/03/2017 Overview: Added automatically from request for surgery [id number] History of pulmonary embolism 04/25/2016 Neoplastic (malignant) [...] FOLLOW-UP 10/27/20122015 Overview: 32 yo female from [place]. Family involved with care, at bedside. plan to discharge patient home - will arrange with case management for post op care as needed - follow up in OPD in 7-10 days Post-op pain 10/27/2012 12/26/2015 Overview: currently well controlled with LIC[employer]ED THERAPIST. will start PO pain meds today 10/27. tolerating percocet, pain relatively well controlled. Hodgkin's disease with nodular sclerosis 013 12/26/2015 Overview: Oncology history (per Dr. 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 Hodgkin's disease, unspecified 02/05/2012 0 05/11/2014 Vaginal bleeding 12/26/2015 Overview: --likely from thrombocytopenia. No menses in prior 8 months. 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 provider after BMT Premature menopause 12/26/2015 Postmenopausal atrophic vaginitis 12/26/2015 Dyspareunia 12/26/2015 documented as of this encounter (statuses as of 05/17/2021) [facility] History of Past illness Narrative* Problem Noted Date Resolved Date Menorrhagia with regular cycle 03/15/2017 1 03/03/2017 Overview: Added automatically from request for surgery [id number] History of pulmonary embolism 04/25/2016 Neoplastic (malignant) [...] FOLLOW-UP 10/27/20122015 Overview: 32 yo female from [place]. Family involved with care, at bedside. plan to discharge patient home - will arrange with case management for post op care as needed - follow up in OPD in 7-10 days Post-op pain 10/27/2012 12/26/2015 Overview: currently well controlled with LIC[employer]ED THERAPIST. will start PO pain meds today 10/27. tolerating percocet, pain relatively well controlled. Hodgkin's disease with nodular sclerosis 013 12/26/2015 Overview: Oncology history (per Dr. 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 Hodgkin's disease, unspecified 02/05/2012 0 05/11/2014 Vaginal bleeding 12/26/2015 Overview: --likely from thrombocytopenia. No menses in prior 8 months. 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 provider after BMT Premature menopause 12/26/2015 Postmenopausal atrophic vaginitis 12/26/2015 Dyspareunia 12/26/2015 documented as of this encounter (statuses as of 05/17/2021) [facility] of Past illness Narrative* Problem Noted Date Resolved Date Menorrhagia with regular cycle 03/15/2017 1 03/03/2017 Overview: Added automatically from request for surgery [id number] History of pulmonary embolism 04/25/2016 Neoplastic (malignant) [...] FOLLOW-UP 10/27/20122015 Overview: 32 yo female from [place]. Family involved with care, at bedside. plan to discharge patient home - will arrange with case management for post op care as needed - follow up in OPD in 7-10 days Post-op pain 10/27/2012 12/26/2015 Overview: currently well controlled with LICENSED THERAPIST. will start PO pain meds today 10/27. tolerating percocet, pain relatively well controlled. Hodgkin's disease with nodular sclerosis 013 12/26/2015 Overview: Oncology history (per Dr. 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 Hodgkin's disease, unspecified 02/05/2012 0 05/11/2014 Vaginal bleeding 12/26/2015 Overview: --likely from thrombocytopenia. No menses in prior 8 months. 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 provider after BMT Premature menopause 12/26/2015 Postmenopausal atrophic vaginitis 12/26/2015 Dyspareunia 12/26/2015 documented as of this encounter (statuses as of 05/17/2021) [facility] of Past illness Narrative* Problem Noted Date Resolved Date Menorrhagia with regular cycle 03/15/2017 1 03/03/2017 Overview: Added automatically from request for surgery [id number] History of pulmonary embolism 04/25/2016 Neoplastic (malignant) [...] FOLLOW-UP 10/27/20122015 Overview: 32 yo female from [place]. Family involved with care, at bedside. plan to discharge patient home - will arrange with case management for post op care as needed - follow up in OPD in 7-10 days Post-op pain 10/27/2012 12/26/2015 Overview: currently well controlled with LICENSED THERAPIST. will start PO pain meds today 10/27. tolerating percocet, pain relatively well controlled. Hodgkin's disease with nodular sclerosis 013 12/26/2015 Overview: Oncology history (per Dr. 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 Hodgkin's disease, unspecified 02/05/2012 0 05/11/2014 Vaginal bleeding 12/26/2015 Overview: --likely from thrombocytopenia. No menses in prior 8 months. 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 provider after BMT Premature menopause 12/26/2015 Postmenopausal atrophic vaginitis 12/26/2015 Dyspareunia 12/26/2015 documented as of this encounter (statuses as of 05/19/2021) [facility] of Past illness Narrative* Problem Noted Date Resolved Date Menorrhagia with regular cycle 03/15/2017 1 03/03/2017 Overview: Added automatically from request for surgery [id number] History of pulmonary embolism 04/25/2016 Neoplastic (malignant) [...] FOLLOW-UP 10/27/20122015 Overview: 32 yo female from [place]. Family involved with care, at bedside. plan to discharge patient home - will arrange with case management for post op care as needed - follow up in OPD in 7-10 days Post-op pain 10/27/2012 12/26/2015 Overview: currently well controlled with LIC[employer]ED THERAPIST. will start PO pain meds today 10/27. tolerating percocet, pain relatively well controlled. Hodgkin's disease with nodular sclerosis 013 12/26/2015 Overview: Oncology history (per Dr. 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 Hodgkin's disease, unspecified 02/05/2012 0 05/11/2014 Vaginal bleeding 12/26/2015 Overview: --likely from thrombocytopenia. No menses in prior 8 months. 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 provider after BMT Premature menopause 12/26/2015 Postmenopausal atrophic vaginitis 12/26/2015 Dyspareunia 12/26/2015 documented as of this encounter (statuses as of 06/06/2021) [facility] History of Past illness Narrative* Problem Noted Date Resolved Date Menorrhagia with regular cycle 03/15/2017 1 03/03/2017 Overview: Added automatically from request for surgery [id number] History of pulmonary embolism 04/25/2016 Neoplastic (malignant) [...] FOLLOW-UP 10/27/20122015 Overview: 32 yo female from [place], [place]. Family involved with care, at bedside. plan to discharge patient home - will arrange with case management for post op care as needed - follow up in OPD in 7-10 days Post-op pain 10/27/2012 12/26/2015 Overview: currently well controlled with [employer]ERAPIST. will start PO pain meds today 10/27. tolerating percocet, pain relatively well controlled. Hodgkin's disease with nodular sclerosis 013 12/26/2015 Overview: Oncology history (per Dr. 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 Hodgkin's disease, unspecified 02/05/2012 0 05/11/2014 Vaginal bleeding 12/26/2015 Overview: --likely from thrombocytopenia. No menses in prior 8 months. 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 provider after BMT Premature menopause 12/26/2015 Postmenopausal atrophic vaginitis 12/26/2015 Dyspareunia 12/26/2015 documented as of this encounter (statuses as of 06/07/2021) [facility] History of Past illness Narrative* Problem Noted Date Resolved Date Menorrhagia with regular cycle 03/15/2017 1 03/03/2017 Overview: Added automatically from request for surgery [id number] History of pulmonary embolism 04/25/2016 Neoplastic (malignant) [...] FOLLOW-UP 10/27/20122015 Overview: 32 yo female from [place]. Family involved with care, at bedside. plan to discharge patient home - will arrange with case management for post op care as needed - follow up in OPD in 7-10 days Post-op pain 10/27/2012 12/26/2015 Overview: currently well controlled with LIC[employer]ED THERAPIST. will start PO pain meds today 10/27. tolerating percocet, pain relatively well controlled. Hodgkin's disease with nodular sclerosis 013 12/26/2015 Overview: Oncology history (per Dr. 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 Hodgkin's disease, unspecified 02/05/2012 0 05/11/2014 Vaginal bleeding 12/26/2015 Overview: --likely from thrombocytopenia. No menses in prior 8 months. 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 provider after BMT Premature menopause 12/26/2015 Postmenopausal atrophic vaginitis 12/26/2015 Dyspareunia 12/26/2015 documented as of this encounter (statuses as of 06/14/2021) [facility] History of Past illness Narrative* Problem Noted Date Resolved Date Menorrhagia with regular cycle 03/15/2017 1 03/03/2017 Overview: Added automatically from request for surgery [id number] History of pulmonary embolism 04/25/2016 Neoplastic (malignant) [...] FOLLOW-UP 10/27/20122015 Overview: 32 yo female from [place]. Family involved with care, at bedside. plan to discharge patient home - will arrange with case management for post op care as needed - follow up in OPD in 7-10 days Post-op pain 10/27/2012 12/26/2015 Overview: currently well controlled with [employer]ED THERAPIST. will start PO pain meds today 10/27. tolerating percocet, pain relatively well controlled. Hodgkin's disease with nodular sclerosis 013 12/26/2015 Overview: Oncology history (per Dr. 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 Hodgkin's disease, unspecified 02/05/2012 0 05/11/2014 Vaginal bleeding 12/26/2015 Overview: --likely from thrombocytopenia. No menses in prior 8 months. 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 provider after BMT Premature menopause 12/26/2015 Postmenopausal atrophic vaginitis 12/26/2015 Dyspareunia 12/26/2015 documented as of this encounter (statuses as of 06/14/2021) [facility] History of Past illness Narrative* Problem Noted Date Resolved Date Menorrhagia with regular cycle 03/15/2017 1 03/03/2017 Overview: Added automatically from request for surgery [id number] History of pulmonary embolism 04/25/2016 Neoplastic (malignant) [...] FOLLOW-UP 10/27/20122015 Overview: 32 yo female from [place]. Family involved with care, at bedside. plan to discharge patient home - will arrange with case management for post op care as needed - follow up in OPD in 7-10 days Post-op pain 10/27/2012 12/26/2015 Overview: currently well controlled with L[employer]ED THERAPIST. will start PO pain meds today 10/27. tolerating percocet, pain relatively well controlled. Hodgkin's disease with nodular sclerosis 013 12/26/2015 Overview: Oncology history (per Dr. 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 Hodgkin's disease, unspecified 02/05/2012 0 05/11/2014 Vaginal bleeding 12/26/2015 Overview: --likely from thrombocytopenia. No menses in prior 8 months. 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 provider after BMT Premature menopause 12/26/2015 Postmenopausal atrophic vaginitis 12/26/2015 Dyspareunia 12/26/2015 documented as of this encounter (statuses as of 06/15/2021) [facility] History of Past illness Narrative* Problem Noted Date Resolved Date Menorrhagia with regular cycle 03/15/2017 1 03/03/2017 Overview: Added automatically from request for surgery [id number] History of pulmonary embolism 04/25/2016 Neoplastic (malignant) [...] FOLLOW-UP 10/27/20122015 Overview: 32 yo female from [place]. Family involved with care, at bedside. plan to discharge patient home - will arrange with case management for post op care as needed - follow up in OPD in 7-10 days Post-op pain 10/27/2012 12/26/2015 Overview: currently well controlled with LIC[employer]ED THERAPIST. will start PO pain meds today 10/27. tolerating percocet, pain relatively well controlled. Hodgkin's disease with nodular sclerosis 013 12/26/2015 Overview: Oncology history (per Dr. 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 Hodgkin's disease, unspecified 02/05/2012 0 05/11/2014 Vaginal bleeding 12/26/2015 Overview: --likely from thrombocytopenia. No menses in prior 8 months. 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 provider after BMT Premature menopause 12/26/2015 Postmenopausal atrophic vaginitis 12/26/2015 Dyspareunia 12/26/2015 documented as of this encounter (statuses as of 06/30/2021) [facility] History of Past illness Narrative* Problem Noted Date Resolved Date Menorrhagia with regular cycle 03/15/2017 1 03/03/2017 Overview: Added automatically from request for surgery [id number] History of pulmonary embolism 04/25/2016 Neoplastic (malignant) [...] FOLLOW-UP 10/27/20122015 Overview: 32 yo female from [place]. Family involved with care, at bedside. plan to discharge patient home - will arrange with case management for post op care as needed - follow up in OPD in 7-10 days Post-op pain 10/27/2012 12/26/2015 Overview: currently well controlled with LICENSED THERAPIST. will start PO pain meds today 10/27. tolerating percocet, pain relatively well controlled. Hodgkin's disease with nodular sclerosis 013 12/26/2015 Overview: Oncology history (per Dr. 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 Hodgkin's disease, unspecified 02/05/2012 0 05/11/2014 Vaginal bleeding 12/26/2015 Overview: --likely from thrombocytopenia. No menses in prior 8 months. 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 provider after BMT Premature menopause 12/26/2015 Postmenopausal atrophic vaginitis 12/26/2015 Dyspareunia 12/26/2015 documented as of this encounter (statuses as of 07/05/2021) [facility] History of Past illness Narrative* Problem Noted Date Resolved Date Menorrhagia with regular cycle 03/15/2017 1 03/03/2017 Overview: Added automatically from request for surgery [id number] History of pulmonary embolism 04/25/2016 Neoplastic (malignant) [...] FOLLOW-UP 10/27/20122015 Overview: 32 yo female from [place]. Family involved with care, at bedside. plan to discharge patient home - will arrange with case management for post op care as needed - follow up in OPD in 7-10 days Post-op pain 10/27/2012 12/26/2015 Overview: currently well controlled with LICENSED THERAPIST. will start PO pain meds today 10/27. tolerating percocet, pain relatively well controlled. Hodgkin's disease with nodular sclerosis 013 12/26/2015 Overview: Oncology history (per Dr. 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 Hodgkin's disease, unspecified 02/05/2012 0 05/11/2014 Vaginal bleeding 12/26/2015 Overview: --likely from thrombocytopenia. No menses in prior 8 months. 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 provider after BMT Premature menopause 12/26/2015 Postmenopausal atrophic vaginitis 12/26/2015 Dyspareunia 12/26/2015 documented as of this encounter (statuses as of 07/06/2021) [facility] History of Past illness Narrative* Problem Noted Date Resolved Date Menorrhagia with regular cycle 03/15/2017 1 03/03/2017 Overview: Added automatically from request for surgery [id number] History of pulmonary embolism 04/25/2016 Neoplastic (malignant) [...] FOLLOW-UP 10/27/20122015 Overview: 32 yo female from [place]. Family involved with care, at bedside. plan to discharge patient home - will arrange with case management for post op care as needed - follow up in OPD in 7-10 days Post-op pain 10/27/2012 12/26/2015 Overview: currently well controlled with LICENSED THERAPIST. will start PO pain meds today 10/27. tolerating percocet, pain relatively well controlled. Hodgkin's disease with nodular sclerosis 013 12/26/2015 Overview: Oncology history (per Dr. 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 Hodgkin's disease, unspecified 02/05/2012 0 05/11/2014 Vaginal bleeding 12/26/2015 Overview: --likely from thrombocytopenia. No menses in prior 8 months. 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 provider after BMT Premature menopause 12/26/2015 Postmenopausal atrophic vaginitis 12/26/2015 Dyspareunia 12/26/2015 documented as of this encounter (statuses as of 2021) [facility] History of Past illness Narrative* Problem Noted Date Resolved Date Menorrhagia with regular cycle 03/15/2017 1 03/03/2017 Overview: Added automatically from request for surgery [id number] History of pulmonary embolism 04/25/2016 Neoplastic (malignant) [...] FOLLOW-UP 10/27/20122015 Overview: 32 yo female from [place]. Family involved with care, at bedside. plan to discharge patient home - will arrange with case management for post op care as needed - follow up in OPD in 7-10 days Post-op pain 10/27/2012 12/26/2015 Overview: currently well controlled with [employer]ED THERAPIST. will start PO pain meds today 10/27. tolerating percocet, pain relatively well controlled. Hodgkin's disease with nodular sclerosis 013 12/26/2015 Overview: Oncology history (per Dr. 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 Hodgkin's disease, unspecified 02/05/2012 0 05/11/2014 Vaginal bleeding 12/26/2015 Overview: --likely from thrombocytopenia. No menses in prior 8 months. 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 provider after BMT Premature menopause 12/26/2015 Postmenopausal atrophic vaginitis 12/26/2015 Dyspareunia 12/26/2015 documented as of this encounter (statuses as of 2021) [facility] History of Past illness Narrative* Problem Noted Date Resolved Date Menorrhagia with regular cycle 03/15/2017 1 03/03/2017 Overview: Added automatically from request for surgery [id number] History of pulmonary embolism 04/25/2016 Neoplastic (malignant) [...] FOLLOW-UP 10/27/20122015 Overview: 32 yo female from [place]. Family involved with care, at bedside. plan to discharge patient home - will arrange with case management for post op care as needed - follow up in OPD in 7-10 days Post-op pain 10/27/2012 12/26/2015 Overview: currently well controlled with LICENSED THERAPIST. will start PO pain meds today 10/27. tolerating percocet, pain relatively well controlled. Hodgkin's disease with nodular sclerosis 013 12/26/2015 Overview: Oncology history (per Dr. 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 Hodgkin's disease, unspecified 02/05/2012 0 05/11/2014 Vaginal bleeding 12/26/2015 Overview: --likely from thrombocytopenia. No menses in prior 8 months. 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 provider after BMT Premature menopause 12/26/2015 Postmenopausal atrophic vaginitis 12/26/2015 Dyspareunia 12/26/2015 documented as of this encounter (statuses as of 07/26/2021) [facility] History of Past illness Narrative* Problem Noted Date Resolved Date Menorrhagia with regular cycle 03/15/2017 1 03/03/2017 Overview: Added automatically from request for surgery [id number] History of pulmonary embolism 04/25/2016 Neoplastic (malignant) [...] FOLLOW-UP 10/27/20122015 Overview: 32 yo female from [place]. Family involved with care, at bedside. plan to discharge patient home - will arrange with case management for post op care as needed - follow up in OPD in 7-10 days Post-op pain 10/27/2012 12/26/2015 Overview: currently well controlled with LIC[employer]ED THERAPIST. will start PO pain meds today 10/27. tolerating percocet, pain relatively well controlled. Hodgkin's disease with nodular sclerosis 013 12/26/2015 Overview: Oncology history (per Dr. 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 Hodgkin's disease, unspecified 02/05/2012 0 05/11/2014 Vaginal bleeding 12/26/2015 Overview: --likely from thrombocytopenia. No menses in prior 8 months. 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 provider after BMT Premature menopause 12/26/2015 Postmenopausal atrophic vaginitis 12/26/2015 Dyspareunia 12/26/2015 documented as of this encounter (statuses as of 07/28/2021) [facility] History of Past illness Narrative* Problem Noted Date Resolved Date Menorrhagia with regular cycle 03/15/2017 1 03/03/2017 Overview: Added automatically from request for surgery [id number] History of pulmonary embolism 04/25/2016 Neoplastic (malignant) [...] FOLLOW-UP 10/27/20122015 Overview: 32 yo female from [place]. Family involved with care, at bedside. plan to discharge patient home - will arrange with case management for post op care as needed - follow up in OPD in 7-10 days Post-op pain 10/27/2012 12/26/2015 Overview: currently well controlled with [employer]ED THERAPIST. will start PO pain meds today 10/27. tolerating percocet, pain relatively well controlled. Hodgkin's disease with nodular sclerosis 013 12/26/2015 Overview: Oncology history (per Dr. 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 Hodgkin's disease, unspecified 02/05/2012 0 05/11/2014 Vaginal bleeding 12/26/2015 Overview: --likely from thrombocytopenia. No menses in prior 8 months. 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 provider after BMT Premature menopause 12/26/2015 Postmenopausal atrophic vaginitis 12/26/2015 Dyspareunia 12/26/2015 documented as of this encounter (statuses as of 07/31/2021) [facility] of Past illness Narrative* Problem Noted Date Resolved Date Menorrhagia with regular cycle 03/15/2017 1 03/03/2017 Overview: Added automatically from request for surgery [id number] History of pulmonary embolism 04/25/2016 Neoplastic (malignant) [...] FOLLOW-UP 10/27/20122015 Overview: 32 yo female from [place]. Family involved with care, at bedside. plan to discharge patient home - will arrange with case management for post op care as needed - follow up in OPD in 7-10 days Post-op pain 10/27/2012 12/26/2015 Overview: currently well controlled with LIC[employer]ED THERAPIST. will start PO pain meds today 10/27. tolerating percocet, pain relatively well controlled. Hodgkin's disease with nodular sclerosis 013 12/26/2015 Overview: Oncology history (per Dr. 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 Hodgkin's disease, unspecified 02/05/2012 0 05/11/2014 Vaginal bleeding 12/26/2015 Overview: --likely from thrombocytopenia. No menses in prior 8 months. 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 provider after BMT Premature menopause 12/26/2015 Postmenopausal atrophic vaginitis 12/26/2015 Dyspareunia 12/26/2015 documented as of this encounter (statuses as of 07/31/2021) [facility] of Past illness Narrative* Problem Noted Date Resolved Date Menorrhagia with regular cycle 03/15/2017 1 03/03/2017 Overview: Added automatically from request for surgery [id number] History of pulmonary embolism 04/25/2016 Neoplastic (malignant) [...] FOLLOW-UP 10/27/20122015 Overview: 32 yo female from [place]. Family involved with care, at bedside. plan to discharge patient home - will arrange with case management for post op care as needed - follow up in OPD in 7-10 days Post-op pain 10/27/2012 12/26/2015 Overview: currently well controlled with LIC[employer]ED THERAPIST. will start PO pain meds today 10/27. tolerating percocet, pain relatively well controlled. Hodgkin's disease with nodular sclerosis 013 12/26/2015 Overview: Oncology history (per Dr. 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 Hodgkin's disease, unspecified 02/05/2012 0 05/11/2014 Vaginal bleeding 12/26/2015 Overview: --likely from thrombocytopenia. No menses in prior 8 months. 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 provider after BMT Premature menopause 12/26/2015 Postmenopausal atrophic vaginitis 12/26/2015 Dyspareunia 12/26/2015 documented as of this encounter (statuses as of 08/03/2021) [facility] of Past illness Narrative* Problem Noted Date Resolved Date Menorrhagia with regular cycle 03/15/2017 1 03/03/2017 Overview: Added automatically from request for surgery [id number] History of pulmonary embolism 04/25/2016 Neoplastic (malignant) [...] FOLLOW-UP 10/27/20122015 Overview: 32 yo female from [place]. Family involved with care, at bedside. plan to discharge patient home - will arrange with case management for post op care as needed - follow up in OPD in 7-10 days Post-op pain 10/27/2012 12/26/2015 Overview: currently well controlled with [employer]ED THERAPIST. will start PO pain meds today 10/27. tolerating percocet, pain relatively well controlled. Hodgkin's disease with nodular sclerosis 013 12/26/2015 Overview: Oncology history (per Dr. 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 Hodgkin's disease, unspecified 02/05/2012 0 05/11/2014 Vaginal bleeding 12/26/2015 Overview: --likely from thrombocytopenia. No menses in prior 8 months. 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 provider after BMT Premature menopause 12/26/2015 Postmenopausal atrophic vaginitis 12/26/2015 Dyspareunia 12/26/2015 documented as of this encounter (statuses as of 08/15/2021) [facility] Past [facility] Narrative* Problem Noted Date Resolved Date Menorrhagia with regular cycle 03/15/2017 1 03/03/2017 Overview: Added automatically from request for surgery [id number] History of pulmonary embolism 04/25/2016 Neoplastic (malignant) [...] FOLLOW-UP 10/27/20122015 Overview: 32 yo female from [place], [place]. Family involved with care, at bedside. plan to discharge patient home - will arrange with case management for post op care as needed - follow up in OPD in 7-10 days Post-op pain 10/27/2012 12/26/2015 Overview: currently well controlled with [employer]ERAPIST. will start PO pain meds today 10/27. tolerating percocet, pain relatively well controlled. Hodgkin's disease with nodular sclerosis 013 12/26/2015 Overview: Oncology history (per Dr. 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 Hodgkin's disease, unspecified 02/05/2012 0 05/11/2014 Vaginal bleeding 12/26/2015 Overview: --likely from thrombocytopenia. No menses in prior 8 months. 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 provider after BMT Premature menopause 12/26/2015 Postmenopausal atrophic vaginitis 12/26/2015 Dyspareunia 12/26/2015 documented as of this encounter (statuses as of 08/16/2021) [facility] History of Past illness Narrative* Problem Noted Date Resolved Date Menorrhagia with regular cycle 03/15/2017 1 03/03/2017 Overview: Added automatically from request for surgery [id number] History of pulmonary embolism 04/25/2016 Neoplastic (malignant) [...] FOLLOW-UP 10/27/20122015 Overview: 32 yo female from [place]. Family involved with care, at bedside. plan to discharge patient home - will arrange with case management for post op care as needed - follow up in OPD in 7-10 days Post-op pain 10/27/2012 12/26/2015 Overview: currently well controlled with LIC[employer]ED THERAPIST. will start PO pain meds today 10/27. tolerating percocet, pain relatively well controlled. Hodgkin's disease with nodular sclerosis 013 12/26/2015 Overview: Oncology history (per Dr. 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 Hodgkin's disease, unspecified 02/05/2012 0 05/11/2014 Vaginal bleeding 12/26/2015 Overview: --likely from thrombocytopenia. No menses in prior 8 months. 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 provider after BMT Premature menopause 12/26/2015 Postmenopausal atrophic vaginitis 12/26/2015 Dyspareunia 12/26/2015 documented as of this encounter (statuses as of 08/30/2021) [facility] History of Past illness Narrative* Problem Noted Date Resolved Date Menorrhagia with regular cycle 03/15/2017 1 03/03/2017 Overview: Added automatically from request for surgery [id number] History of pulmonary embolism 04/25/2016 Neoplastic (malignant) [...] FOLLOW-UP 10/27/20122015 Overview: 32 yo female from [place]. Family involved with care, at bedside. plan to discharge patient home - will arrange with case management for post op care as needed - follow up in OPD in 7-10 days Post-op pain 10/27/2012 12/26/2015 Overview: currently well controlled with [employer]ED THERAPIST. will start PO pain meds today 10/27. tolerating percocet, pain relatively well controlled. Hodgkin's disease with nodular sclerosis 013 12/26/2015 Overview: Oncology history (per Dr. 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 Hodgkin's disease, unspecified 02/05/2012 0 05/11/2014 Vaginal bleeding 12/26/2015 Overview: --likely from thrombocytopenia. No menses in prior 8 months. 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 provider after BMT Premature menopause 12/26/2015 Postmenopausal atrophic vaginitis 12/26/2015 Dyspareunia 12/26/2015 documented as of this encounter (statuses as of 09/04/2021) [facility] History of Past illness Narrative* Problem Noted Date Resolved Date Menorrhagia with regular cycle 03/15/2017 1 03/03/2017 Overview: Added automatically from request for surgery [id number] History of pulmonary embolism 04/25/2016 Neoplastic (malignant) [...] FOLLOW-UP 10/27/20122015 Overview: 32 yo female from [place]. Family involved with care, at bedside. plan to discharge patient home - will arrange with case management for post op care as needed - follow up in OPD in 7-10 days Post-op pain 10/27/2012 12/26/2015 Overview: currently well controlled with [employer]ED THERAPIST. will start PO pain meds today 10/27. tolerating percocet, pain relatively well controlled. Hodgkin's disease with nodular sclerosis 013 12/26/2015 Overview: Oncology history (per Dr. 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 Hodgkin's disease, unspecified 02/05/2012 0 05/11/2014 Vaginal bleeding 12/26/2015 Overview: --likely from thrombocytopenia. No menses in prior 8 months. 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 provider after BMT Premature menopause 12/26/2015 Postmenopausal atrophic vaginitis 12/26/2015 Dyspareunia 12/26/2015 documented as of this encounter (statuses as of 09/04/2021) [facility] History of Past illness Narrative* Problem Noted Date Resolved Date Menorrhagia with regular cycle 03/15/2017 1 03/03/2017 Overview: Added automatically from request for surgery [id number] History of pulmonary embolism 04/25/2016 Neoplastic (malignant) [...] FOLLOW-UP 10/27/20122015 Overview: 32 yo female from [place]. Family involved with care, at bedside. plan to discharge patient home - will arrange with case management for post op care as needed - follow up in OPD in 7-10 days Post-op pain 10/27/2012 12/26/2015 Overview: currently well controlled with LICENSED THERAPIST. will start PO pain meds today 10/27. tolerating percocet, pain relatively well controlled. Hodgkin's disease with nodular sclerosis 013 12/26/2015 Overview: Oncology history (per Dr. 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 Hodgkin's disease, unspecified 02/05/2012 0 05/11/2014 Vaginal bleeding 12/26/2015 Overview: --likely from thrombocytopenia. No menses in prior 8 months. 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 provider after BMT Premature menopause 12/26/2015 Postmenopausal atrophic vaginitis 12/26/2015 Dyspareunia 12/26/2015 documented as of this encounter (statuses as of 09/05/2021) [facility] History of Past illness Narrative* Problem Noted Date Resolved Date Menorrhagia with regular cycle 03/15/2017 1 03/03/2017 Overview: Added automatically from request for surgery [id number] History of pulmonary embolism 04/25/2016 Neoplastic (malignant) [...] FOLLOW-UP 10/27/20122015 Overview: 32 yo female from [place]. Family involved with care, at bedside. plan to discharge patient home - will arrange with case management for post op care as needed - follow up in OPD in 7-10 days Post-op pain 10/27/2012 12/26/2015 Overview: currently well controlled with LICENSED THERAPIST. will start PO pain meds today 10/27. tolerating percocet, pain relatively well controlled. Hodgkin's disease with nodular sclerosis 013 12/26/2015 Overview: Oncology history (per Dr. 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 Hodgkin's disease, unspecified 02/05/2012 0 05/11/2014 Vaginal bleeding 12/26/2015 Overview: --likely from thrombocytopenia. No menses in prior 8 months. 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 provider after BMT Premature menopause 12/26/2015 Postmenopausal atrophic vaginitis 12/26/2015 Dyspareunia 12/26/2015 documented as of this encounter (statuses as of 09/06/2021) [facility] History of Past illness Narrative* Problem Noted Date Resolved Date Menorrhagia with regular cycle 03/15/2017 1 03/03/2017 Overview: Added automatically from request for surgery [id number] History of pulmonary embolism 04/25/2016 Neoplastic (malignant) [...] FOLLOW-UP 10/27/20122015 Overview: 32 yo female from [place]. Family involved with care, at bedside. plan to discharge patient home - will arrange with case management for post op care as needed - follow up in OPD in 7-10 days Post-op pain 10/27/2012 12/26/2015 Overview: currently well controlled with LICENSED THERAPIST. will start PO pain meds today 10/27. tolerating percocet, pain relatively well controlled. Hodgkin's disease with nodular sclerosis 013 12/26/2015 Overview: Oncology history (per Dr. 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 Hodgkin's disease, unspecified 02/05/2012 0 05/11/2014 Vaginal bleeding 12/26/2015 Overview: --likely from thrombocytopenia. No menses in prior 8 months. 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 provider after BMT Premature menopause 12/26/2015 Postmenopausal atrophic vaginitis 12/26/2015 Dyspareunia 12/26/2015 documented as of this encounter (statuses as of 09/11/2021) [facility] History of Past illness Narrative* Problem Noted Date Resolved Date Menorrhagia with regular cycle 03/15/2017 1 03/03/2017 Overview: Added automatically from request for surgery [id number] History of pulmonary embolism 04/25/2016 Neoplastic (malignant) [...] FOLLOW-UP 10/27/20122015 Overview: 32 yo female from [place]. Family involved with care, at bedside. plan to discharge patient home - will arrange with case management for post op care as needed - follow up in OPD in 7-10 days Post-op pain 10/27/2012 12/26/2015 Overview: currently well controlled with LICENSED THERAPIST. will start PO pain meds today 10/27. tolerating percocet, pain relatively well controlled. Hodgkin's disease with nodular sclerosis 013 12/26/2015 Overview: Oncology history (per Dr. 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 Hodgkin's disease, unspecified 02/05/2012 0 05/11/2014 Vaginal bleeding 12/26/2015 Overview: --likely from thrombocytopenia. No menses in prior 8 months. 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 provider after BMT Premature menopause 12/26/2015 Postmenopausal atrophic vaginitis 12/26/2015 Dyspareunia 12/26/2015 documented as of this encounter (statuses as of 09/22/2021) [facility] History of Past illness Narrative* Problem Noted Date Resolved Date Menorrhagia with regular cycle 03/15/2017 1 03/03/2017 Overview: Added automatically from request for surgery [id number] History of pulmonary embolism 04/25/2016 Neoplastic (malignant) [...] FOLLOW-UP 10/27/20122015 Overview: 32 yo female from [place]. Family involved with care, at bedside. plan to discharge patient home - will arrange with case management for post op care as needed - follow up in OPD in 7-10 days Post-op pain 10/27/2012 12/26/2015 Overview: currently well controlled with LIC[employer]ED THERAPIST. will start PO pain meds today 10/27. tolerating percocet, pain relatively well controlled. Hodgkin's disease with nodular sclerosis 013 12/26/2015 Overview: Oncology history (per Dr. 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 Hodgkin's disease, unspecified 02/05/2012 0 05/11/2014 Vaginal bleeding 12/26/2015 Overview: --likely from thrombocytopenia. No menses in prior 8 months. 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 provider after BMT Premature menopause 12/26/2015 Postmenopausal atrophic vaginitis 12/26/2015 Dyspareunia 12/26/2015 documented as of this encounter (statuses as of 09/22/2021) [facility] History of Past illness Narrative* Problem Noted Date Resolved Date Menorrhagia with regular cycle 03/15/2017 1 03/03/2017 Overview: Added automatically from request for surgery [id number] History of pulmonary embolism 04/25/2016 Neoplastic (malignant) [...] FOLLOW-UP 10/27/20122015 Overview: 32 yo female from [place]. Family involved with care, at bedside. plan to discharge patient home - will arrange with case management for post op care as needed - follow up in OPD in 7-10 days Post-op pain 10/27/2012 12/26/2015 Overview: currently well controlled with LIC[employer]ED THERAPIST. will start PO pain meds today 10/27. tolerating percocet, pain relatively well controlled. Hodgkin's disease with nodular sclerosis 013 12/26/2015 Overview: Oncology history (per Dr. 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 Hodgkin's disease, unspecified 02/05/2012 0 05/11/2014 Vaginal bleeding 12/26/2015 Overview: --likely from thrombocytopenia. No menses in prior 8 months. 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 provider after BMT Premature menopause 12/26/2015 Postmenopausal atrophic vaginitis 12/26/2015 Dyspareunia 12/26/2015 documented as of this encounter (statuses as of 10/02/2021) [facility] History of Past illness Narrative* Problem Noted Date Resolved Date Menorrhagia with regular cycle 03/15/2017 1 03/03/2017 Overview: Added automatically from request for surgery [id number] History of pulmonary embolism 04/25/2016 Neoplastic (malignant) [...] FOLLOW-UP 10/27/20122015 Overview: 32 yo female from [place]. Family involved with care, at bedside. plan to discharge patient home - will arrange with case management for post op care as needed - follow up in OPD in 7-10 days Post-op pain 10/27/2012 12/26/2015 Overview: currently well controlled with [employer]ED THERAPIST. will start PO pain meds today 10/27. tolerating percocet, pain relatively well controlled. Hodgkin's disease with nodular sclerosis 013 12/26/2015 Overview: Oncology history (per Dr. 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 Hodgkin's disease, unspecified 02/05/2012 0 05/11/2014 Vaginal bleeding 12/26/2015 Overview: --likely from thrombocytopenia. No menses in prior 8 months. 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 provider after BMT Premature menopause 12/26/2015 Postmenopausal atrophic vaginitis 12/26/2015 Dyspareunia 12/26/2015 documented as of this encounter (statuses as of 10/05/2021) [facility] of Past illness Narrative* Problem Noted Date Resolved Date Menorrhagia with regular cycle 03/15/2017 1 03/03/2017 Overview: Added automatically from request for surgery [id number] History of pulmonary embolism 04/25/2016 Neoplastic (malignant) [...] FOLLOW-UP 10/27/20122015 Overview: 32 yo female from [place]. Family involved with care, at bedside. plan to discharge patient home - will arrange with case management for post op care as needed - follow up in OPD in 7-10 days Post-op pain 10/27/2012 12/26/2015 Overview: currently well controlled with [employer]IC[employer]ED THERAPIST. will start PO pain meds today 10/27. tolerating percocet, pain relatively well controlled. Hodgkin's disease with nodular sclerosis 013 12/26/2015 Overview: Oncology history (per Dr. 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 Hodgkin's disease, unspecified 02/05/2012 0 05/11/2014 Vaginal bleeding 12/26/2015 Overview: --likely from thrombocytopenia. No menses in prior 8 months. 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 provider after BMT Premature menopause 12/26/2015 Postmenopausal atrophic vaginitis 12/26/2015 Dyspareunia 12/26/2015 documented as of this encounter (statuses as of 10/16/2021) [facility] of Past illness Narrative* Problem Noted Date Resolved Date Menorrhagia with regular cycle 03/15/2017 1 03/03/2017 Overview: Added automatically from request for surgery [id number] History of pulmonary embolism 04/25/2016 Neoplastic (malignant) [...] FOLLOW-UP 10/27/20122015 Overview: 32 yo female from [place]. Family involved with care, at bedside. plan to discharge patient home - will arrange with case management for post op care as needed - follow up in OPD in 7-10 days Post-op pain 10/27/2012 12/26/2015 Overview: currently well controlled with LIC[employer]ED THERAPIST. will start PO pain meds today 10/27. tolerating percocet, pain relatively well controlled. Hodgkin's disease with nodular sclerosis 013 12/26/2015 Overview: Oncology history (per Dr. 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 Hodgkin's disease, unspecified 02/05/2012 0 05/11/2014 Vaginal bleeding 12/26/2015 Overview: --likely from thrombocytopenia. No menses in prior 8 months. 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 provider after BMT Premature menopause 12/26/2015 Postmenopausal atrophic vaginitis 12/26/2015 Dyspareunia 12/26/2015 documented as of this encounter (statuses as of 10/18/2021) [facility] of Past illness Narrative* Problem Noted Date Resolved Date Menorrhagia with regular cycle 03/15/2017 1 03/03/2017 Overview: Added automatically from request for surgery [id number] History of pulmonary embolism 04/25/2016 Neoplastic (malignant) [...] FOLLOW-UP 10/27/20122015 Overview: 32 yo female from [place]. Family involved with care, at bedside. plan to discharge patient home - will arrange with case management for post op care as needed - follow up in OPD in 7-10 days Post-op pain 10/27/2012 12/26/2015 Overview: currently well controlled with LIC[employer]ED THERAPIST. will start PO pain meds today 10/27. tolerating percocet, pain relatively well controlled. Hodgkin's disease with nodular sclerosis 013 12/26/2015 Overview: Oncology history (per Dr. 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 Hodgkin's disease, unspecified 02/05/2012 0 05/11/2014 Vaginal bleeding 12/26/2015 Overview: --likely from thrombocytopenia. No menses in prior 8 months. 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 provider after BMT Premature menopause 12/26/2015 Postmenopausal atrophic vaginitis 12/26/2015 Dyspareunia 12/26/2015 documented as of this encounter (statuses as of 10/25/2021) [facility] of Past illness Narrative* Problem Noted Date Resolved Date Menorrhagia with regular cycle 03/15/2017 1 03/03/2017 Overview: Added automatically from request for surgery [id number] History of pulmonary embolism 04/25/2016 Neoplastic (malignant) [...] FOLLOW-UP 10/27/20122015 Overview: 32 yo female from [place]. Family involved with care, at bedside. plan to discharge patient home - will arrange with case management for post op care as needed - follow up in OPD in 7-10 days Post-op pain 10/27/2012 12/26/2015 Overview: currently well controlled with LICENSED THERAPIST. will start PO pain meds today 10/27. tolerating percocet, pain relatively well controlled. Hodgkin's disease with nodular sclerosis 013 12/26/2015 Overview: Oncology history (per Dr. 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 Hodgkin's disease, unspecified 02/05/2012 0 05/11/2014 Vaginal bleeding 12/26/2015 Overview: --likely from thrombocytopenia. No menses in prior 8 months. 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 provider after BMT Premature menopause 12/26/2015 Postmenopausal atrophic vaginitis 12/26/2015 Dyspareunia 12/26/2015 documented as of this encounter (statuses as of 10/25/2021) [facility] Narrative* Problem Noted Date Resolved Date Menorrhagia with regular cycle 03/15/2017 1 03/03/2017 Overview: Added automatically from request for surgery [id number] History of pulmonary embolism 04/25/2016 Neoplastic (malignant) [...] FOLLOW-UP 10/27/20122015 Overview: 32 yo female from [place], [place]. Family involved with care, at bedside. plan to discharge patient home - will arrange with case management for post op care as needed - follow up in OPD in 7-10 days Post-op pain 10/27/2012 12/26/2015 Overview: currently well controlled with [employer]ERAP[employer]. will start PO pain meds today 10/27. tolerating percocet, pain relatively well controlled. Hodgkin's disease with nodular sclerosis 013 12/26/2015 Overview: Oncology history (per Dr. 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 Hodgkin's disease, unspecified 02/05/2012 0 05/11/2014 Vaginal bleeding 12/26/2015 Overview: --likely from thrombocytopenia. No menses in prior 8 months. 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 provider after BMT Premature menopause 12/26/2015 Postmenopausal atrophic vaginitis 12/26/2015 Dyspareunia 12/26/2015 documented as of this encounter (statuses as of 10/26/2021) [facility] History of Past illness Narrative* Problem Noted Date Resolved Date Menorrhagia with regular cycle 03/15/201703/03/2017 Overview: Added automatically from request for surgery [id number] History of pulmonary embolism 04/25/2016 Neoplastic (malignant) [...] FOLLOW-UP 10/27/20122015 Overview: 32 yo female from [place]. Family involved with care, at bedside. plan to discharge patient home - will arrange with case management for post op care as needed - follow up in OPD in 7-10 days Post-op pain 10/27/2012 12/26/2015 Overview: currently well controlled with [employer]ED THERAPIST. will start PO pain meds today 10/27. tolerating percocet, pain relatively well controlled. Hodgkin's disease with nodular sclerosis 013 12/26/2015 Overview: Oncology history (per Dr. 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 Hodgkin's disease, unspecified 02/05/2012 0 05/11/2014 Vaginal bleeding 12/26/2015 Overview: --likely from thrombocytopenia. No menses in prior 8 months. 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 provider after BMT Premature menopause 12/26/2015 Postmenopausal atrophic vaginitis 12/26/2015 Dyspareunia 12/26/2015 documented as of this encounter (statuses as of 10/26/2021) [facility] History of Past illness Narrative* Problem Noted Date Resolved Date Menorrhagia with regular cycle 03/15/2017 1 03/03/2017 Overview: Added automatically from request for surgery [id number] History of pulmonary embolism 04/25/2016 Neoplastic (malignant) [...] FOLLOW-UP 10/27/20122015 Overview: 32 yo female from [place]. Family involved with care, at bedside. plan to discharge patient home - will arrange with case management for post op care as needed - follow up in OPD in 7-10 days Post-op pain 10/27/2012 12/26/2015 Overview: currently well controlled with [employer]ED THERAPIST. will start PO pain meds today 10/27. tolerating percocet, pain relatively well controlled. Hodgkin's disease with nodular sclerosis 013 12/26/2015 Overview: Oncology history (per Dr. 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 Hodgkin's disease, unspecified 02/05/2012 0 05/11/2014 Vaginal bleeding 12/26/2015 Overview: --likely from thrombocytopenia. No menses in prior 8 months. 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 provider after BMT Premature menopause 12/26/2015 Postmenopausal atrophic vaginitis 12/26/2015 Dyspareunia 12/26/2015 documented as of this encounter (statuses as of 10/31/2021) [facility] History of Past illness Narrative* Problem Noted Date Resolved Date Menorrhagia with regular cycle 03/15/2017 1 03/03/2017 Overview: Added automatically from request for surgery [id number] History of pulmonary embolism 04/25/2016 Neoplastic (malignant) [...] FOLLOW-UP 10/27/20122015 Overview: 32 yo female from [place]. Family involved with care, at bedside. plan to discharge patient home - will arrange with case management for post op care as needed - follow up in OPD in 7-10 days Post-op pain 10/27/2012 12/26/2015 Overview: currently well controlled with [employer]ED THERAPIST. will start PO pain meds today 10/27. tolerating percocet, pain relatively well controlled. Hodgkin's disease with nodular sclerosis 013 12/26/2015 Overview: Oncology history (per Dr. 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 Hodgkin's disease, unspecified 02/05/2012 0 05/11/2014 Vaginal bleeding 12/26/2015 Overview: --likely from thrombocytopenia. No menses in prior 8 months. 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 provider after BMT Premature menopause 12/26/2015 Postmenopausal atrophic vaginitis 12/26/2015 Dyspareunia 12/26/2015 documented as of this encounter (statuses as of 11/08/2021) [facility] History of Past illness Narrative* Problem Noted Date Resolved Date Menorrhagia with regular cycle 03/15/2017 1 03/03/2017 Overview: Added automatically from request for surgery [id number] History of pulmonary embolism 04/25/2016 Neoplastic (malignant) [...] FOLLOW-UP 10/27/20122015 Overview: 32 yo female from [place]. Family involved with care, at bedside. plan to discharge patient home - will arrange with case management for post op care as needed - follow up in OPD in 7-10 days Post-op pain 10/27/2012 12/26/2015 Overview: currently well controlled with [employer]IC[employer]ED THERAPIST. will start PO pain meds today 10/27. tolerating percocet, pain relatively well controlled. Hodgkin's disease with nodular sclerosis 013 12/26/2015 Overview: Oncology history (per Dr. 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 Hodgkin's disease, unspecified 02/05/2012 0 05/11/2014 Vaginal bleeding 12/26/2015 Overview: --likely from thrombocytopenia. No menses in prior 8 months. 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 provider after BMT Premature menopause 12/26/2015 Postmenopausal atrophic vaginitis 12/26/2015 Dyspareunia 12/26/2015 documented as of this encounter (statuses as of 11/13/2021) [facility] History of Past illness Narrative* Problem Noted Date Resolved Date Menorrhagia with regular cycle 03/15/2017 1 03/03/2017 Overview: Added automatically from request for surgery [id number] History of pulmonary embolism 04/25/2016 Neoplastic (malignant) [...] FOLLOW-UP 10/27/20122015 Overview: 32 yo female from [place]. Family involved with care, at bedside. plan to discharge patient home - will arrange with case management for post op care as needed - follow up in OPD in 7-10 days Post-op pain 10/27/2012 12/26/2015 Overview: currently well controlled with LIC[employer]ED THERAPIST. will start PO pain meds today 10/27. tolerating percocet, pain relatively well controlled. Hodgkin's disease with nodular sclerosis 013 12/26/2015 Overview: Oncology history (per Dr. 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 Hodgkin's disease, unspecified 02/05/2012 0 05/11/2014 Vaginal bleeding 12/26/2015 Overview: --likely from thrombocytopenia. No menses in prior 8 months. 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 provider after BMT Premature menopause 12/26/2015 Postmenopausal atrophic vaginitis 12/26/2015 Dyspareunia 12/26/2015 documented as of this encounter (statuses as of 11/13/2021) [facility] History of Past illness Narrative* Problem Noted Date Resolved Date Menorrhagia with regular cycle 03/15/2017 1 03/03/2017 Overview: Added automatically from request for surgery [id number] History of pulmonary embolism 04/25/2016 Neoplastic (malignant) [...] FOLLOW-UP 10/27/20122015 Overview: 32 yo female from [place]. Family involved with care, at bedside. plan to discharge patient home - will arrange with case management for post op care as needed - follow up in OPD in 7-10 days Post-op pain 10/27/2012 12/26/2015 Overview: currently well controlled with LICENSED THERAPIST. will start PO pain meds today 10/27. tolerating percocet, pain relatively well controlled. Hodgkin's disease with nodular sclerosis 013 12/26/2015 Overview: Oncology history (per Dr. 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 Hodgkin's disease, unspecified 02/05/2012 0 05/11/2014 Vaginal bleeding 12/26/2015 Overview: --likely from thrombocytopenia. No menses in prior 8 months. 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 provider after BMT Premature menopause 12/26/2015 Postmenopausal atrophic vaginitis 12/26/2015 Dyspareunia 12/26/2015 documented as of this encounter (statuses as of 11/14/2021) [facility] History of Past illness Narrative* Problem Noted Date Resolved Date Menorrhagia with regular cycle 03/15/2017 1 03/03/2017 Overview: Added automatically from request for surgery [id number] History of pulmonary embolism 04/25/2016 Neoplastic (malignant) [...] FOLLOW-UP 10/27/20122015 Overview: 32 yo female from [place]. Family involved with care, at bedside. plan to discharge patient home - will arrange with case management for post op care as needed - follow up in OPD in 7-10 days Post-op pain 10/27/2012 12/26/2015 Overview: currently well controlled with L[employer]ED THERAPIST. will start PO pain meds today 10/27. tolerating percocet, pain relatively well controlled. Hodgkin's disease with nodular sclerosis 013 12/26/2015 Overview: Oncology history (per Dr. 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 Hodgkin's disease, unspecified 02/05/2012 0 05/11/2014 Vaginal bleeding 12/26/2015 Overview: --likely from thrombocytopenia. No menses in prior 8 months. 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 provider after BMT Premature menopause 12/26/2015 Postmenopausal atrophic vaginitis 12/26/2015 Dyspareunia 12/26/2015 documented as of this encounter (statuses as of 11/15/2021) [facility] History of Past illness Narrative* Problem Noted Date Resolved Date Menorrhagia with regular cycle 03/15/2017 1 03/03/2017 Overview: Added automatically from request for surgery [id number] History of pulmonary embolism 04/25/2016 Neoplastic (malignant) [...] FOLLOW-UP 10/27/20122015 Overview: 32 yo female from [place]. Family involved with care, at bedside. plan to discharge patient home - will arrange with case management for post op care as needed - follow up in OPD in 7-10 days Post-op pain 10/27/2012 12/26/2015 Overview: currently well controlled with [employer]ED THERAPIST. will start PO pain meds today 10/27. tolerating percocet, pain relatively well controlled. Hodgkin's disease with nodular sclerosis 013 12/26/2015 Overview: Oncology history (per Dr. 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 Hodgkin's disease, unspecified 02/05/2012 0 05/11/2014 Vaginal bleeding 12/26/2015 Overview: --likely from thrombocytopenia. No menses in prior 8 months. 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 provider after BMT Premature menopause 12/26/2015 Postmenopausal atrophic vaginitis 12/26/2015 Dyspareunia 12/26/2015 documented as of this encounter (statuses as of 11/15/2021) [facility] History of Past illness Narrative* Problem Noted Date Resolved Date Menorrhagia with regular cycle 03/15/2017 1 03/03/2017 Overview: Added automatically from request for surgery [id number] History of pulmonary embolism 04/25/2016 Neoplastic (malignant) [...] FOLLOW-UP 10/27/20122015 Overview: 32 yo female from [place]. Family involved with care, at bedside. plan to discharge patient home - will arrange with case management for post op care as needed - follow up in OPD in 7-10 days Post-op pain 10/27/2012 12/26/2015 Overview: currently well controlled with [employer]ED THERAPIST. will start PO pain meds today 10/27. tolerating percocet, pain relatively well controlled. Hodgkin's disease with nodular sclerosis 013 12/26/2015 Overview: Oncology history (per Dr. 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 Hodgkin's disease, unspecified 02/05/2012 0 05/11/2014 Vaginal bleeding 12/26/2015 Overview: --likely from thrombocytopenia. No menses in prior 8 months. 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 provider after BMT Premature menopause 12/26/2015 Postmenopausal atrophic vaginitis 12/26/2015 Dyspareunia 12/26/2015 documented as of this encounter (statuses as of 12/04/2021) [facility] History of Past illness Narrative* Problem Noted Date Resolved Date Menorrhagia with regular cycle 03/15/2017 1 03/03/2017 Overview: Added automatically from request for surgery [id number] History of pulmonary embolism 04/25/2016 Neoplastic (malignant) [...] FOLLOW-UP 10/27/20122015 Overview: 32 yo female from [place]. Family involved with care, at bedside. plan to discharge patient home - will arrange with case management for post op care as needed - follow up in OPD in 7-10 days Post-op pain 10/27/2012 12/26/2015 Overview: currently well controlled with [employer]ED THERAPIST. will start PO pain meds today 10/27. tolerating percocet, pain relatively well controlled. Hodgkin's disease with nodular sclerosis 013 12/26/2015 Overview: Oncology history (per Dr. 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 Hodgkin's disease, unspecified 02/05/2012 0 05/11/2014 Vaginal bleeding 12/26/2015 Overview: --likely from thrombocytopenia. No menses in prior 8 months. 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 provider after BMT Premature menopause 12/26/2015 Postmenopausal atrophic vaginitis 12/26/2015 Dyspareunia 12/26/2015 documented as of this encounter (statuses as of 12/05/2021) [facility] History of Past illness Narrative* Problem Noted Date Resolved Date Menorrhagia with regular cycle 03/15/2017 1 03/03/2017 Overview: Added automatically from request for surgery [id number] History of pulmonary embolism 04/25/2016 Neoplastic (malignant) [...] FOLLOW-UP 10/27/20122015 Overview: 32 yo female from [place]. Family involved with care, at bedside. plan to discharge patient home - will arrange with case management for post op care as needed - follow up in OPD in 7-10 days Post-op pain 10/27/2012 12/26/2015 Overview: currently well controlled with [employer]ED THERAPIST. will start PO pain meds today 10/27. tolerating percocet, pain relatively well controlled. Hodgkin's disease with nodular sclerosis 013 12/26/2015 Overview: Oncology history (per Dr. 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 Hodgkin's disease, unspecified 02/05/2012 0 05/11/2014 Vaginal bleeding 12/26/2015 Overview: --likely from thrombocytopenia. No menses in prior 8 months. 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 provider after BMT Premature menopause 12/26/2015 Postmenopausal atrophic vaginitis 12/26/2015 Dyspareunia 12/26/2015 documented as of this encounter (statuses as of 12/06/2021) [facility] of Past illness Narrative* Problem Noted Date Resolved Date Menorrhagia with regular cycle 03/15/2017 1 03/03/2017 Overview: Added automatically from request for surgery [id number] History of pulmonary embolism 04/25/2016 Neoplastic (malignant) [...] FOLLOW-UP 10/27/20122015 Overview: 32 yo female from [place]. Family involved with care, at bedside. plan to discharge patient home - will arrange with case management for post op care as needed - follow up in OPD in 7-10 days Post-op pain 10/27/2012 12/26/2015 Overview: currently well controlled with L[employer]ED THERAPIST. will start PO pain meds today 10/27. tolerating percocet, pain relatively well controlled. Hodgkin's disease with nodular sclerosis 013 12/26/2015 Overview: Oncology history (per Dr. 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 Hodgkin's disease, unspecified 02/05/2012 0 05/11/2014 Vaginal bleeding 12/26/2015 Overview: --likely from thrombocytopenia. No menses in prior 8 months. 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 provider after BMT Premature menopause 12/26/2015 Postmenopausal atrophic vaginitis 12/26/2015 Dyspareunia 12/26/2015 documented as of this encounter (statuses as of 12/07/2021) [facility] of Past illness Narrative* Problem Noted Date Resolved Date Menorrhagia with regular cycle 03/15/2017 1 03/03/2017 Overview: Added automatically from request for surgery [id number] History of pulmonary embolism 04/25/2016 Neoplastic (malignant) [...] FOLLOW-UP 10/27/20122015 Overview: 32 yo female from [place]. Family involved with care, at bedside. plan to discharge patient home - will arrange with case management for post op care as needed - follow up in OPD in 7-10 days Post-op pain 10/27/2012 12/26/2015 Overview: currently well controlled with [employer]IC[employer]ED THERAPIST. will start PO pain meds today 10/27. tolerating percocet, pain relatively well controlled. Hodgkin's disease with nodular sclerosis 013 12/26/2015 Overview: Oncology history (per Dr. 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 Hodgkin's disease, unspecified 02/05/2012 0 05/11/2014 Vaginal bleeding 12/26/2015 Overview: --likely from thrombocytopenia. No menses in prior 8 months. Scant amount reported on 03/29 and 2/10, now resolved --monitor bleeding by counting pads --should f/u with her [employer] provider after BMT Premature menopause 12/26/2015 Postmenopausal atrophic vaginitis 12/26/2015 Dyspareunia 12/26/2015 documented as of this encounter (statuses as of 12/12/2021) [facility] of Past illness Narrative* Problem Noted Date Resolved Date Menorrhagia with regular cycle 03/15/2017 1 03/03/2017 Overview: Added automatically from request for surgery [id number] History of pulmonary embolism 04/25/2016 Neoplastic (malignant) [...] FOLLOW-UP 10/27/20122015 Overview: 32 yo female from [place]. Family involved with care, at bedside. plan to discharge patient home - will arrange with case management for post op care as needed - follow up in OPD in 7-10 days Post-op pain 10/27/2012 12/26/2015 Overview: currently well controlled with LIC[employer]ED THERAPIST. will start PO pain meds today 10/27. tolerating percocet, pain relatively well controlled. Hodgkin's disease with nodular sclerosis 013 12/26/2015 Overview: Oncology history (per Dr. 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 Hodgkin's disease, unspecified 02/05/2012 0 05/11/2014 Vaginal bleeding 12/26/2015 Overview: --likely from thrombocytopenia. No menses in prior 8 months. 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 provider after BMT Premature menopause 12/26/2015 Postmenopausal atrophic vaginitis 12/26/2015 Dyspareunia 12/26/2015 documented as of this encounter (statuses as of 12/18/2021) [facility] Past [facility] Narrative* Problem Noted Date Resolved Date Menorrhagia with regular cycle 03/15/2017 1 03/03/2017 Overview: Added automatically from request for surgery [id number] History of pulmonary embolism 04/25/2016 Neoplastic (malignant) [...] FOLLOW-UP 10/27/20122015 Overview: 32 yo female from [place], [place]. Family involved with care, at bedside. plan to discharge patient home - will arrange with case management for post op care as needed - follow up in OPD in 7-10 days Post-op pain 10/27/2012 12/26/2015 Overview: currently well controlled with [employer]ER[employer]. will start PO pain meds today 10/27. tolerating percocet, pain relatively well controlled. Hodgkin's disease with nodular sclerosis 013 12/26/2015 Overview: Oncology history (per Dr. 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 Hodgkin's disease, unspecified 02/05/2012 0 05/11/2014 Vaginal bleeding 12/26/2015 Overview: --likely from thrombocytopenia. No menses in prior 8 months. 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 provider after BMT Premature menopause 12/26/2015 Postmenopausal atrophic vaginitis 12/26/2015 Dyspareunia 12/26/2015 documented as of this encounter (statuses as of 12/19/2021) [facility] History of Past illness Narrative* Problem Noted Date Resolved Date Menorrhagia with regular cycle 03/15/2017 1 03/03/2017 Overview: Added automatically from request for surgery [id number] History of pulmonary embolism 04/25/2016 Neoplastic (malignant) [...] FOLLOW-UP 10/27/20122015 Overview: 32 yo female from [place]. Family involved with care, at bedside. plan to discharge patient home - will arrange with case management for post op care as needed - follow up in OPD in 7-10 days Post-op pain 10/27/2012 12/26/2015 Overview: currently well controlled with [employer]ED THERAPIST. will start PO pain meds today 10/27. tolerating percocet, pain relatively well controlled. Hodgkin's disease with nodular sclerosis 013 12/26/2015 Overview: Oncology history (per Dr. 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 Hodgkin's disease, unspecified 02/05/2012 0 05/11/2014 Vaginal bleeding 12/26/2015 Overview: --likely from thrombocytopenia. No menses in prior 8 months. 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 provider after BMT Premature menopause 12/26/2015 Postmenopausal atrophic vaginitis 12/26/2015 Dyspareunia 12/26/2015 documented as of this encounter (statuses as of 12/27/2021) [facility] History of Past illness Narrative* Problem Noted Date Resolved Date Menorrhagia with regular cycle 03/15/2017 1 03/03/2017 Overview: Added automatically from request for surgery [id number] History of pulmonary embolism 04/25/2016 Neoplastic (malignant) [...] FOLLOW-UP 10/27/20122015 Overview: 32 yo female from [place]. Family involved with care, at bedside. plan to discharge patient home - will arrange with case management for post op care as needed - follow up in OPD in 7-10 days Post-op pain 10/27/2012 12/26/2015 Overview: currently well controlled with [employer] THERAPIST. will start PO pain meds today 10/27. tolerating percocet, pain relatively well controlled. Hodgkin's disease with nodular sclerosis 013 12/26/2015 Overview: Oncology history (per Dr. 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 Hodgkin's disease, unspecified 02/05/2012 0 05/11/2014 Vaginal bleeding 12/26/2015 Overview: --likely from thrombocytopenia. No menses in prior 8 months. 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 provider after BMT Premature menopause 12/26/2015 Postmenopausal atrophic vaginitis 12/26/2015 Dyspareunia 12/26/2015 documented as of this encounter (statuses as of 12/31/2021) [facility] History of Past illness Narrative* Problem Noted Date Resolved Date Menorrhagia with regular cycle 03/15/2017 1 03/03/2017 Overview: Added automatically from request for surgery [id number] History of pulmonary embolism 04/25/2016 Neoplastic (malignant) [...] FOLLOW-UP 10/27/20122015 Overview: 32 yo female from [place]. Family involved with care, at bedside. plan to discharge patient home - will arrange with case management for post op care as needed - follow up in OPD in 7-10 days Post-op pain 10/27/2012 12/26/2015 Overview: currently well controlled with [employer] THERAPIST. will start PO pain meds today 10/27. tolerating percocet, pain relatively well controlled. Hodgkin's disease with nodular sclerosis 013 12/26/2015 Overview: Oncology history (per Dr. 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 Hodgkin's disease, unspecified 02/05/2012 0 05/11/2014 Vaginal bleeding 12/26/2015 Overview: --likely from thrombocytopenia. No menses in prior 8 months. 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 provider after BMT Premature menopause 12/26/2015 Postmenopausal atrophic vaginitis 12/26/2015 Dyspareunia 12/26/2015 documented as of this encounter (statuses as of 01/08/2022) [facility] History of Past illness Narrative* Problem Noted Date Resolved Date Menorrhagia with regular cycle 03/15/2017 1 03/03/2017 Overview: Added automatically from request for surgery [id number] History of pulmonary embolism 04/25/2016 Neoplastic (malignant) [...] FOLLOW-UP 10/27/20122015 Overview: 32 yo female from [place]. Family involved with care, at bedside. plan to discharge patient home - will arrange with case management for post op care as needed - follow up in OPD in 7-10 days Post-op pain 10/27/2012 12/26/2015 Overview: currently well controlled with [employer]ED THERAPIST. will start PO pain meds today 10/27. tolerating percocet, pain relatively well controlled. Hodgkin's disease with nodular sclerosis 013 12/26/2015 Overview: Oncology history (per Dr. 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 Hodgkin's disease, unspecified 02/05/2012 0 05/11/2014 Vaginal bleeding 12/26/2015 Overview: --likely from thrombocytopenia. No menses in prior 8 months. 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 provider after BMT Premature menopause 12/26/2015 Postmenopausal atrophic vaginitis 12/26/2015 Dyspareunia 12/26/2015 documented as of this encounter (statuses as of 01/16/2022) [facility] History of Past illness Narrative* Problem Noted Date Resolved Date Menorrhagia with regular cycle 03/15/2017 1 03/03/2017 Overview: Added automatically from request for surgery [id number] History of pulmonary embolism 04/25/2016 Neoplastic (malignant) [...] FOLLOW-UP 10/27/20122015 Overview: 32 yo female from [place]. Family involved with care, at bedside. plan to discharge patient home - will arrange with case management for post op care as needed - follow up in OPD in 7-10 days Post-op pain 10/27/2012 12/26/2015 Overview: currently well controlled with L[employer]ED THERAPIST. will start PO pain meds today 10/27. tolerating percocet, pain relatively well controlled. Hodgkin's disease with nodular sclerosis 013 12/26/2015 Overview: Oncology history (per Dr. 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 Hodgkin's disease, unspecified 02/05/2012 0 05/11/2014 Vaginal bleeding 12/26/2015 Overview: --likely from thrombocytopenia. No menses in prior 8 months. 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 provider after BMT Premature menopause 12/26/2015 Postmenopausal atrophic vaginitis 12/26/2015 Dyspareunia 12/26/2015 documented as of this encounter (statuses as of 01/16/2022) [facility] History of Past illness Narrative* Problem Noted Date Resolved Date Menorrhagia with regular cycle 03/15/2017 1 03/03/2017 Overview: Added automatically from request for surgery [id number] History of pulmonary embolism 04/25/2016 Neoplastic (malignant) [...] FOLLOW-UP 10/27/20122015 Overview: 32 yo female from [place]. Family involved with care, at bedside. plan to discharge patient home - will arrange with case management for post op care as needed - follow up in OPD in 7-10 days Post-op pain 10/27/2012 12/26/2015 Overview: currently well controlled with LICENSED THERAPIST. will start PO pain meds today 10/27. tolerating percocet, pain relatively well controlled. Hodgkin's disease with nodular sclerosis 013 12/26/2015 Overview: Oncology history (per Dr. 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 Hodgkin's disease, unspecified 02/05/2012 0 05/11/2014 Vaginal bleeding 12/26/2015 Overview: --likely from thrombocytopenia. No menses in prior 8 months. 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 provider after BMT Premature menopause 12/26/2015 Postmenopausal atrophic vaginitis 12/26/2015 Dyspareunia 12/26/2015 documented as of this encounter (statuses as of 01/17/2022) [facility] History of Past illness Narrative* Problem Noted Date Resolved Date Menorrhagia with regular cycle 03/15/201703/03/2017 Overview: Added automatically from request for surgery [id number] History of pulmonary embolism 04/25/2016 Neoplastic (malignant) [...] FOLLOW-UP 10/27/20122015 Overview: 32 yo female from [place]. Family involved with care, at bedside. plan to discharge patient home - will arrange with case management for post op care as needed - follow up in OPD in 7-10 days Post-op pain 10/27/2012 12/26/2015 Overview: currently well controlled with [employer]ED THERAPIST. will start PO pain meds today 10/27. tolerating percocet, pain relatively well controlled. Hodgkin's disease with nodular sclerosis 013 12/26/2015 Overview: Oncology history (per Dr. 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 Hodgkin's disease, unspecified 02/05/2012 0 05/11/2014 Vaginal bleeding 12/26/2015 Overview: --likely from thrombocytopenia. No menses in prior 8 months. 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 provider after BMT Premature menopause 12/26/2015 Postmenopausal atrophic vaginitis 12/26/2015 Dyspareunia 12/26/2015 documented as of this encounter (statuses as of 01/18/2022) [facility] History of Past illness Narrative* Problem Noted Date Resolved Date Menorrhagia with regular cycle 03/15/2017 1 03/03/2017 Overview: Added automatically from request for surgery [id number] History of pulmonary embolism 04/25/2016 Neoplastic (malignant) [...] FOLLOW-UP 10/27/20122015 Overview: 32 yo female from [place]. Family involved with care, at bedside. plan to discharge patient home - will arrange with case management for post op care as needed - follow up in OPD in 7-10 days Post-op pain 10/27/2012 12/26/2015 Overview: currently well controlled with [employer] THERAPIST. will start PO pain meds today 10/27. tolerating percocet, pain relatively well controlled. Hodgkin's disease with nodular sclerosis 013 12/26/2015 Overview: Oncology history (per Dr. 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 Hodgkin's disease, unspecified 02/05/2012 0 05/11/2014 Vaginal bleeding 12/26/2015 Overview: --likely from thrombocytopenia. No menses in prior 8 months. 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 provider after BMT Premature menopause 12/26/2015 Postmenopausal atrophic vaginitis 12/26/2015 Dyspareunia 12/26/2015 documented as of this encounter (statuses as of 01/20/2022) [facility] History of Past illness Narrative* Problem Noted Date Resolved Date Menorrhagia with regular cycle 03/15/2017 1 03/03/2017 Overview: Added automatically from request for surgery [id number] History of pulmonary embolism 04/25/2016 Neoplastic (malignant) [...] FOLLOW-UP 10/27/20122015 Overview: 32 yo female from [place]. Family involved with care, at bedside. plan to discharge patient home - will arrange with case management for post op care as needed - follow up in OPD in 7-10 days Post-op pain 10/27/2012 12/26/2015 Overview: currently well controlled with [employer] THERAPIST. will start PO pain meds today 10/27. tolerating percocet, pain relatively well controlled. Hodgkin's disease with nodular sclerosis 013 12/26/2015 Overview: Oncology history (per Dr. 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 Hodgkin's disease, unspecified 02/05/2012 0 05/11/2014 Vaginal bleeding 12/26/2015 Overview: --likely from thrombocytopenia. No menses in prior 8 months. 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 provider after BMT Premature menopause 12/26/2015 Postmenopausal atrophic vaginitis 12/26/2015 Dyspareunia 12/26/2015 documented as of this encounter (statuses as of 01/22/2022) [facility] History of Past illness Narrative* Problem Noted Date Resolved Date Menorrhagia with regular cycle 03/15/2017 1 03/03/2017 Overview: Added automatically from request for surgery [id number] History of pulmonary embolism 04/25/2016 Neoplastic (malignant) [...] FOLLOW-UP 10/27/20122015 Overview: 32 yo female from [place]. Family involved with care, at bedside. plan to discharge patient home - will arrange with case management for post op care as needed - follow up in OPD in 7-10 days Post-op pain 10/27/2012 12/26/2015 Overview: currently well controlled with [employer] THERAPIST. will start PO pain meds today 10/27. tolerating percocet, pain relatively well controlled. Hodgkin's disease with nodular sclerosis 013 12/26/2015 Overview: Oncology history (per Dr. 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 Hodgkin's disease, unspecified 02/05/2012 0 05/11/2014 Vaginal bleeding 12/26/2015 Overview: --likely from thrombocytopenia. No menses in prior 8 months. Scant amount reported on 2/9 and 03/30, now resolved --monitor bleeding by counting pads --should f/u with her [employer] provider after BMT Premature menopause 12/26/2015 Postmenopausal atrophic vaginitis 12/26/2015 Dyspareunia 12/26/2015 documented as of this encounter (statuses as of 01/25/2022) [facility] of Past illness Narrative* Problem Noted Date Resolved Date Menorrhagia with regular cycle 03/15/2017 1 03/03/2017 Overview: Added automatically from request for surgery [id number] History of pulmonary embolism 04/25/2016 Neoplastic (malignant) [...] FOLLOW-UP 10/27/20122015 Overview: 32 yo female from [place]. Family involved with care, at bedside. plan to discharge patient home - will arrange with case management for post op care as needed - follow up in OPD in 7-10 days Post-op pain 10/27/2012 12/26/2015 Overview: currently well controlled with [employer] THERAPIST. will start PO pain meds today 10/27. tolerating percocet, pain relatively well controlled. Hodgkin's disease with nodular sclerosis 013 12/26/2015 Overview: Oncology history (per Dr. 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 Hodgkin's disease, unspecified 02/05/2012 0 05/11/2014 Vaginal bleeding 12/26/2015 Overview: --likely from thrombocytopenia. No menses in prior 8 months. 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 provider after BMT Premature menopause 12/26/2015 Postmenopausal atrophic vaginitis 12/26/2015 Dyspareunia 12/26/2015 documented as of this encounter (statuses as of 02/11/2022) [facility] of Past illness Narrative* Problem Noted Date Resolved Date Menorrhagia with regular cycle 03/15/2017 1 03/03/2017 Overview: Added automatically from request for surgery [id number] History of pulmonary embolism 04/25/2016 Neoplastic (malignant) [...] FOLLOW-UP 10/27/20122015 Overview: 32 yo female from [place]. Family involved with care, at bedside. plan to discharge patient home - will arrange with case management for post op care as needed - follow up in OPD in 7-10 days Post-op pain 10/27/2012 12/26/2015 Overview: currently well controlled with [employer]ED THERAPIST. will start PO pain meds today 10/27. tolerating percocet, pain relatively well controlled. Hodgkin's disease with nodular sclerosis 013 12/26/2015 Overview: Oncology history (per Dr. 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 Hodgkin's disease, unspecified 02/05/2012 0 05/11/2014 Vaginal bleeding 12/26/2015 Overview: --likely from thrombocytopenia. No menses in prior 8 months. 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 provider after BMT Premature menopause 12/26/2015 Postmenopausal atrophic vaginitis 12/26/2015 Dyspareunia 12/26/2015 documented as of this encounter (statuses as of 02/21/2022) [facility] of Past illness Narrative* Problem Noted Date Resolved Date Menorrhagia with regular cycle 03/15/2017 1 03/03/2017 Overview: Added automatically from request for surgery [id number] History of pulmonary embolism 04/25/2016 Neoplastic (malignant) [...] FOLLOW-UP 10/27/20122015 Overview: 32 yo female from [place]. Family involved with care, at bedside. plan to discharge patient home - will arrange with case management for post op care as needed - follow up in OPD in 7-10 days Post-op pain 10/27/2012 12/26/2015 Overview: currently well controlled with [employer]ED THERAPIST. will start PO pain meds today 10/27. tolerating percocet, pain relatively well controlled. Hodgkin's disease with nodular sclerosis 013 12/26/2015 Overview: Oncology history (per Dr. 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 Hodgkin's disease, unspecified 02/05/2012 0 05/11/2014 Vaginal bleeding 12/26/2015 Overview: --likely from thrombocytopenia. No menses in prior 8 months. 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 provider after BMT Premature menopause 12/26/2015 Postmenopausal atrophic vaginitis 12/26/2015 Dyspareunia 12/26/2015 documented as of this encounter (statuses as of 03/06/2022) [facility] of Past illness Narrative* Problem Noted Date Resolved Date Menorrhagia with regular cycle 03/15/2017 1 03/03/2017 Overview: Added automatically from request for surgery [id number] History of pulmonary embolism 04/25/2016 Neoplastic (malignant) [...] FOLLOW-UP 10/27/20122015 Overview: 32 yo female from [place]. Family involved with care, at bedside. plan to discharge patient home - will arrange with case management for post op care as needed - follow up in OPD in 7-10 days Post-op pain 10/27/2012 12/26/2015 Overview: currently well controlled with [employer]ED THERAPIST. will start PO pain meds today 10/27. tolerating percocet, pain relatively well controlled. Hodgkin's disease with nodular sclerosis 013 12/26/2015 Overview: Oncology history (per Dr. 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 Hodgkin's disease, unspecified 02/05/2012 0 05/11/2014 Vaginal bleeding 12/26/2015 Overview: --likely from thrombocytopenia. No menses in prior 8 months. 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 provider after BMT Premature menopause 12/26/2015 Postmenopausal atrophic vaginitis 12/26/2015 Dyspareunia 12/26/2015 documented as of this encounter (statuses as of 03/07/2022) [facility] Past illness Narrative* Problem Noted Date Resolved Date Menorrhagia with regular cycle 03/15/2017 1 03/03/2017 Overview: Added automatically from request for surgery [id number] History of pulmonary embolism 04/25/2016 Neoplastic (malignant) [...] FOLLOW-UP 10/27/20122015 Overview: 32 yo female from [place], [place]. Family involved with care, at bedside. plan to discharge patient home - will arrange with case management for post op care as needed - follow up in OPD in 7-10 days Post-op pain 10/27/2012 12/26/2015 Overview: currently well controlled with [employer]ER[employer]. will start PO pain meds today 10/27. tolerating percocet, pain relatively well controlled. Hodgkin's disease with nodular sclerosis 013 12/26/2015 Overview: Oncology history (per Dr. 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 Hodgkin's disease, unspecified 02/05/2012 0 05/11/2014 Vaginal bleeding 12/26/2015 Overview: --likely from thrombocytopenia. No menses in prior 8 months. 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 provider after BMT Premature menopause 12/26/2015 Postmenopausal atrophic vaginitis 12/26/2015 Dyspareunia 12/26/2015 documented as of this encounter (statuses as of 03/07/2022) [facility] History of Past illness Narrative* Problem Noted Date Resolved Date Menorrhagia with regular cycle 03/15/2017 1 03/03/2017 Overview: Added automatically from request for surgery [id number] History of pulmonary embolism 04/25/2016 Neoplastic (malignant) [...] FOLLOW-UP 10/27/20122015 Overview: 32 yo female from [place]. Family involved with care, at bedside. plan to discharge patient home - will arrange with case management for post op care as needed - follow up in OPD in 7-10 days Post-op pain 10/27/2012 12/26/2015 Overview: currently well controlled with [employer]ED THERAPIST. will start PO pain meds today 10/27. tolerating percocet, pain relatively well controlled. Hodgkin's disease with nodular sclerosis 013 12/26/2015 Overview: Oncology history (per Dr. 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 Hodgkin's disease, unspecified 02/05/2012 0 05/11/2014 Vaginal bleeding 12/26/2015 Overview: --likely from thrombocytopenia. No menses in prior 8 months. 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 provider after BMT Premature menopause 12/26/2015 Postmenopausal atrophic vaginitis 12/26/2015 Dyspareunia 12/26/2015 documented as of this encounter (statuses as of 03/15/2022) [facility] History of Past illness Narrative* Problem Noted Date Resolved Date Menorrhagia with regular cycle 03/15/2017 1 03/03/2017 Overview: Added automatically from request for surgery [id number] History of pulmonary embolism 04/25/2016 Neoplastic (malignant) [...] FOLLOW-UP 10/27/20122015 Overview: 32 yo female from [place]. Family involved with care, at bedside. plan to discharge patient home - will arrange with case management for post op care as needed - follow up in OPD in 7-10 days Post-op pain 10/27/2012 12/26/2015 Overview: currently well controlled with [employer]ED THERAPIST. will start PO pain meds today 10/27. tolerating percocet, pain relatively well controlled. Hodgkin's disease with nodular sclerosis 013 12/26/2015 Overview: Oncology history (per Dr. 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 Hodgkin's disease, unspecified 02/05/2012 0 05/11/2014 Vaginal bleeding 12/26/2015 Overview: --likely from thrombocytopenia. No menses in prior 8 months. 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 provider after BMT Premature menopause 12/26/2015 Postmenopausal atrophic vaginitis 12/26/2015 Dyspareunia 12/26/2015 documented as of this encounter (statuses as of 03/15/2022) [facility] History of Past illness Narrative* Problem Noted Date Resolved Date Menorrhagia with regular cycle 03/15/2017 1 03/03/2017 Overview: Added automatically from request for surgery [id number] History of pulmonary embolism 04/25/2016 Neoplastic (malignant) [...] FOLLOW-UP 10/27/20122015 Overview: 32 yo female from [place]. Family involved with care, at bedside. plan to discharge patient home - will arrange with case management for post op care as needed - follow up in OPD in 7-10 days Post-op pain 10/27/2012 12/26/2015 Overview: currently well controlled with [employer] THERAPIST. will start PO pain meds today 10/27. tolerating percocet, pain relatively well controlled. Hodgkin's disease with nodular sclerosis 013 12/26/2015 Overview: Oncology history (per Dr. 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 Hodgkin's disease, unspecified 02/05/2012 0 05/11/2014 Vaginal bleeding 12/26/2015 Overview: --likely from thrombocytopenia. No menses in prior 8 months. 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 provider after BMT Premature menopause 12/26/2015 Postmenopausal atrophic vaginitis 12/26/2015 Dyspareunia 12/26/2015 documented as of this encounter (statuses as of 03/19/2022) [facility] History of Past illness Narrative* Problem Noted Date Resolved Date Menorrhagia with regular cycle 03/15/2017 1 03/03/2017 Overview: Added automatically from request for surgery [id number] History of pulmonary embolism 04/25/2016 Neoplastic (malignant) [...] FOLLOW-UP 10/27/20122015 Overview: 32 yo female from [place]. Family involved with care, at bedside. plan to discharge patient home - will arrange with case management for post op care as needed - follow up in OPD in 7-10 days Post-op pain 10/27/2012 12/26/2015 Overview: currently well controlled with [employer]ED THERAPIST. will start PO pain meds today 10/27. tolerating percocet, pain relatively well controlled. Hodgkin's disease with nodular sclerosis 013 12/26/2015 Overview: Oncology history (per Dr. 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 Hodgkin's disease, unspecified 02/05/2012 0 05/11/2014 Vaginal bleeding 12/26/2015 Overview: --likely from thrombocytopenia. No menses in prior 8 months. 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 provider after BMT Premature menopause 12/26/2015 Postmenopausal atrophic vaginitis 12/26/2015 Dyspareunia 12/26/2015 documented as of this encounter (statuses as of 03/22/2022) [facility] History of Past illness Narrative* Problem Noted Date Resolved Date Menorrhagia with regular cycle 03/15/2017 1 03/03/2017 Overview: Added automatically from request for surgery [id number] History of pulmonary embolism 04/25/2016 Neoplastic (malignant) [...] FOLLOW-UP 10/27/20122015 Overview: 32 yo female from [place]. Family involved with care, at bedside. plan to discharge patient home - will arrange with case management for post op care as needed - follow up in OPD in 7-10 days Post-op pain 10/27/2012 12/26/2015 Overview: currently well controlled with LIC[employer]ED THERAPIST. will start PO pain meds today 10/27. tolerating percocet, pain relatively well controlled. Hodgkin's disease with nodular sclerosis 013 12/26/2015 Overview: Oncology history (per Dr. 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 Hodgkin's disease, unspecified 02/05/2012 0 05/11/2014 Vaginal bleeding 12/26/2015 Overview: --likely from thrombocytopenia. No menses in prior 8 months. 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 provider after BMT Premature menopause 12/26/2015 Postmenopausal atrophic vaginitis 12/26/2015 Dyspareunia 12/26/2015 documented as of this encounter (statuses as of 03/23/2022) [facility] History of Past illness Narrative* Problem Noted Date Resolved Date Menorrhagia with regular cycle 03/15/2017 1 03/03/2017 Overview: Added automatically from request for surgery [id number] History of pulmonary embolism 04/25/2016 Neoplastic (malignant) [...] FOLLOW-UP 10/27/20122015 Overview: 32 yo female from [place]. Family involved with care, at bedside. plan to discharge patient home - will arrange with case management for post op care as needed - follow up in OPD in 7-10 days Post-op pain 10/27/2012 12/26/2015 Overview: currently well controlled with LICENSED THERAPIST. will start PO pain meds today 10/27. tolerating percocet, pain relatively well controlled. Hodgkin's disease with nodular sclerosis 013 12/26/2015 Overview: Oncology history (per Dr. 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 Hodgkin's disease, unspecified 02/05/2012 0 05/11/2014 Vaginal bleeding 12/26/2015 Overview: --likely from thrombocytopenia. No menses in prior 8 months. 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 provider after BMT Premature menopause 12/26/2015 Postmenopausal atrophic vaginitis 12/26/2015 Dyspareunia 12/26/2015 documented as of this encounter (statuses as of 03/24/2022) [facility] History of Past illness Narrative* Problem Noted Date Resolved Date Menorrhagia with regular cycle 03/15/2017 1 03/03/2017 Overview: Added automatically from request for surgery [id number] History of pulmonary embolism 04/25/2016 Neoplastic (malignant) [...] FOLLOW-UP 10/27/20122015 Overview: 32 yo female from [place]. Family involved with care, at bedside. plan to discharge patient home - will arrange with case management for post op care as needed - follow up in OPD in 7-10 days Post-op pain 10/27/2012 12/26/2015 Overview: currently well controlled with [employer]ED THERAPIST. will start PO pain meds today 10/27. tolerating percocet, pain relatively well controlled. Hodgkin's disease with nodular sclerosis 013 12/26/2015 Overview: Oncology history (per Dr. 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 Hodgkin's disease, unspecified 02/05/2012 0 05/11/2014 Vaginal bleeding 12/26/2015 Overview: --likely from thrombocytopenia. No menses in prior 8 months. 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 provider after BMT Premature menopause 12/26/2015 Postmenopausal atrophic vaginitis 12/26/2015 Dyspareunia 12/26/2015 documented as of this encounter (statuses as of 03/26/2022) [facility] History of Past illness Narrative* Problem Noted Date Resolved Date Menorrhagia with regular cycle 03/15/2017 1 03/03/2017 Overview: Added automatically from request for surgery [id number] History of pulmonary embolism 04/25/2016 Neoplastic (malignant) [...] FOLLOW-UP 10/27/20122015 Overview: 32 yo female from [place]. Family involved with care, at bedside. plan to discharge patient home - will arrange with case management for post op care as needed - follow up in OPD in 7-10 days Post-op pain 10/27/2012 12/26/2015 Overview: currently well controlled with [employer] THERAPIST. will start PO pain meds today 10/27. tolerating percocet, pain relatively well controlled. Hodgkin's disease with nodular sclerosis 013 12/26/2015 Overview: Oncology history (per Dr. 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 Hodgkin's disease, unspecified 02/05/2012 0 05/11/2014 Vaginal bleeding 12/26/2015 Overview: --likely from thrombocytopenia. No menses in prior 8 months. 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 provider after BMT Premature menopause 12/26/2015 Postmenopausal atrophic vaginitis 12/26/2015 Dyspareunia 12/26/2015 documented as of this encounter (statuses as of 03/30/2022) [facility] History of Past illness Narrative* Problem Noted Date Resolved Date Menorrhagia with regular cycle 03/15/2017 1 03/03/2017 Overview: Added automatically from request for surgery [id number] History of pulmonary embolism 04/25/2016 Neoplastic (malignant) [...] FOLLOW-UP 10/27/20122015 Overview: 32 yo female from [place]. Family involved with care, at bedside. plan to discharge patient home - will arrange with case management for post op care as needed - follow up in OPD in 7-10 days Post-op pain 10/27/2012 12/26/2015 Overview: currently well controlled with [employer] THERAPIST. will start PO pain meds today 10/27. tolerating percocet, pain relatively well controlled. Hodgkin's disease with nodular sclerosis 013 12/26/2015 Overview: Oncology history (per Dr. 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 Hodgkin's disease, unspecified 02/05/2012 0 05/11/2014 Vaginal bleeding 12/26/2015 Overview: --likely from thrombocytopenia. No menses in prior 8 months. 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 provider after BMT Premature menopause 12/26/2015 Postmenopausal atrophic vaginitis 12/26/2015 Dyspareunia 12/26/2015 documented as of this encounter (statuses as of 04/01/2022) [facility] History of Past illness Narrative* Problem Noted Date Resolved Date Menorrhagia with regular cycle 03/15/2017 1 03/03/2017 Overview: Added automatically from request for surgery [id number] History of pulmonary embolism 04/25/2016 Neoplastic (malignant) [...] FOLLOW-UP 10/27/20122015 Overview: 32 yo female from [place]. Family involved with care, at bedside. plan to discharge patient home - will arrange with case management for post op care as needed - follow up in OPD in 7-10 days Post-op pain 10/27/2012 12/26/2015 Overview: currently well controlled with [employer] THERAPIST. will start PO pain meds today 10/27. tolerating percocet, pain relatively well controlled. Hodgkin's disease with nodular sclerosis 013 12/26/2015 Overview: Oncology history (per Dr. 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 Hodgkin's disease, unspecified 02/05/2012 0 05/11/2014 Vaginal bleeding 12/26/2015 Overview: --likely from thrombocytopenia. No menses in prior 8 months. 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 provider after BMT Premature menopause 12/26/2015 Postmenopausal atrophic vaginitis 12/26/2015 Dyspareunia 12/26/2015 documented as of this encounter (statuses as of 04/10/2022) [facility] History of Past illness Narrative* Problem Noted Date Resolved Date Menorrhagia with regular cycle 03/15/2017 1 03/03/2017 Overview: Added automatically from request for surgery [id number] History of pulmonary embolism 04/25/2016 Neoplastic (malignant) [...] FOLLOW-UP 10/27/20122015 Overview: 32 yo female from [place]. Family involved with care, at bedside. plan to discharge patient home - will arrange with case management for post op care as needed - follow up in OPD in 7-10 days Post-op pain 10/27/2012 12/26/2015 Overview: currently well controlled with [employer]ED THERAPIST. will start PO pain meds today 10/27. tolerating percocet, pain relatively well controlled. Hodgkin's disease with nodular sclerosis 013 12/26/2015 Overview: Oncology history (per Dr. 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 Hodgkin's disease, unspecified 02/05/2012 0 05/11/2014 Vaginal bleeding 12/26/2015 Overview: --likely from thrombocytopenia. No menses in prior 8 months. 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 provider after BMT Premature menopause 12/26/2015 Postmenopausal atrophic vaginitis 12/26/2015 Dyspareunia 12/26/2015 documented as of this encounter (statuses as of 04/16/2022) [facility] of Past illness Narrative* Problem Noted Date Resolved Date Menorrhagia with regular cycle 03/15/2017 1 03/03/2017 Overview: Added automatically from request for surgery [id number] History of pulmonary embolism 04/25/2016 Neoplastic (malignant) [...] FOLLOW-UP 10/27/20122015 Overview: 32 yo female from [place]. Family involved with care, at bedside. plan to discharge patient home - will arrange with case management for post op care as needed - follow up in OPD in 7-10 days Post-op pain 10/27/2012 12/26/2015 Overview: currently well controlled with [employer]ED THERAPIST. will start PO pain meds today 10/27. tolerating percocet, pain relatively well controlled. Hodgkin's disease with nodular sclerosis 013 12/26/2015 Overview: Oncology history (per Dr. 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 Hodgkin's disease, unspecified 02/05/2012 0 05/11/2014 Vaginal bleeding 12/26/2015 Overview: --likely from thrombocytopenia. No menses in prior 8 months. 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 provider after BMT Premature menopause 12/26/2015 Postmenopausal atrophic vaginitis 12/26/2015 Dyspareunia 12/26/2015 documented as of this encounter (statuses as of 04/17/2022) [facility] of Past illness Narrative* Problem Noted Date Resolved Date Menorrhagia with regular cycle 03/15/2017 1 03/03/2017 Overview: Added automatically from request for surgery [id number] History of pulmonary embolism 04/25/2016 Neoplastic (malignant) [...] FOLLOW-UP 10/27/20122015 Overview: 32 yo female from [place]. Family involved with care, at bedside. plan to discharge patient home - will arrange with case management for post op care as needed - follow up in OPD in 7-10 days Post-op pain 10/27/2012 12/26/2015 Overview: currently well controlled with [employer]ED THERAPIST. will start PO pain meds today 10/27. tolerating percocet, pain relatively well controlled. Hodgkin's disease with nodular sclerosis 013 12/26/2015 Overview: Oncology history (per Dr. 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 Hodgkin's disease, unspecified 02/05/2012 0 05/11/2014 Vaginal bleeding 12/26/2015 Overview: --likely from thrombocytopenia. No menses in prior 8 months. 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 provider after BMT Premature menopause 12/26/2015 Postmenopausal atrophic vaginitis 12/26/2015 Dyspareunia 12/26/2015 documented as of this encounter (statuses as of 04/20/2022) [facility] of Past illness Narrative* Problem Noted Date Resolved Date Menorrhagia with regular cycle 03/15/2017 1 03/03/2017 Overview: Added automatically from request for surgery [id number] History of pulmonary embolism 04/25/2016 Neoplastic (malignant) [...] FOLLOW-UP 10/27/20122015 Overview: 32 yo female from [place]. Family involved with care, at bedside. plan to discharge patient home - will arrange with case management for post op care as needed - follow up in OPD in 7-10 days Post-op pain 10/27/2012 12/26/2015 Overview: currently well controlled with [employer]ED THERAPIST. will start PO pain meds today 10/27. tolerating percocet, pain relatively well controlled. Hodgkin's disease with nodular sclerosis 013 12/26/2015 Overview: Oncology history (per Dr. 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 Hodgkin's disease, unspecified 02/05/2012 0 05/11/2014 Vaginal bleeding 12/26/2015 Overview: --likely from thrombocytopenia. No menses in prior 8 months. 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 provider after BMT Premature menopause 12/26/2015 Postmenopausal atrophic vaginitis 12/26/2015 Dyspareunia 12/26/2015 documented as of this encounter (statuses as of 04/23/2022) [facility] Past illness Narrative* Problem Noted Date Resolved Date Menorrhagia with regular cycle 03/15/2017 1 03/03/2017 Overview: Added automatically from request for surgery [id number] History of pulmonary embolism 04/25/2016 Neoplastic (malignant) [...] FOLLOW-UP 10/27/20122015 Overview: 32 yo female from [place], [place]. Family involved with care, at bedside. plan to discharge patient home - will arrange with case management for post op care as needed - follow up in OPD in 7-10 days Post-op pain 10/27/2012 12/26/2015 Overview: currently well controlled with [employer]ERAP[employer]. will start PO pain meds today 10/27. tolerating percocet, pain relatively well controlled. Hodgkin's disease with nodular sclerosis 013 12/26/2015 Overview: Oncology history (per Dr. 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 Hodgkin's disease, unspecified 02/05/2012 0 05/11/2014 Vaginal bleeding 12/26/2015 Overview: --likely from thrombocytopenia. No menses in prior 8 months. 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 provider after BMT Premature menopause 12/26/2015 Postmenopausal atrophic vaginitis 12/26/2015 Dyspareunia 12/26/2015 documented as of this encounter (statuses as of 04/23/2022) [facility] History of Past illness Narrative* Problem Noted Date Resolved Date Menorrhagia with regular cycle 03/15/2017 1 03/03/2017 Overview: Added automatically from request for surgery [id number] History of pulmonary embolism 04/25/2016 Neoplastic (malignant) [...] FOLLOW-UP 10/27/20122015 Overview: 32 yo female from [place], [place]. Family involved with care, at bedside. plan to discharge patient home - will arrange with case management for post op care as needed - follow up in OPD in 7-10 days Post-op pain 10/27/2012 12/26/2015 Overview: currently well controlled with [employer]IC[employer]ED THERAPIST. will start PO pain meds today 10/27. tolerating percocet, pain relatively well controlled. Hodgkin's disease with nodular sclerosis 013 12/26/2015 Overview: Oncology history (per Dr. 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 Hodgkin's disease, unspecified 02/05/2012 0 05/11/2014 Vaginal bleeding 12/26/2015 Overview: --likely from thrombocytopenia. No menses in prior 8 months. 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 provider after BMT Premature menopause 12/26/2015 Postmenopausal atrophic vaginitis 12/26/2015 Dyspareunia 12/26/2015 documented as of this encounter (statuses as of 04/25/2022) [facility] History of Past illness Narrative* Problem Noted Date Resolved Date Menorrhagia with regular cycle 03/15/2017 1 03/03/2017 Overview: Added automatically from request for surgery [id number] History of pulmonary embolism 04/25/2016 Neoplastic (malignant) [...] FOLLOW-UP 10/27/20122015 Overview: 32 yo female from [place]. Family involved with care, at bedside. plan to discharge patient home - will arrange with case management for post op care as needed - follow up in OPD in 7-10 days Post-op pain 10/27/2012 12/26/2015 Overview: currently well controlled with [employer]ED THERAPIST. will start PO pain meds today 10/27. tolerating percocet, pain relatively well controlled. Hodgkin's disease with nodular sclerosis 013 12/26/2015 Overview: Oncology history (per Dr. 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 Hodgkin's disease, unspecified 02/05/2012 0 05/11/2014 Vaginal bleeding 12/26/2015 Overview: --likely from thrombocytopenia. No menses in prior 8 months. 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 provider after BMT Premature menopause 12/26/2015 Postmenopausal atrophic vaginitis 12/26/2015 Dyspareunia 12/26/2015 documented as of this encounter (statuses as of 05/01/2022) [facility] History of Past illness Narrative* Problem Noted Date Resolved Date Menorrhagia with regular cycle 03/15/2017 1 03/03/2017 Overview: Added automatically from request for surgery [id number] History of pulmonary embolism 04/25/2016 Neoplastic (malignant) [...] FOLLOW-UP 10/27/20122015 Overview: 32 yo female from [place]. Family involved with care, at bedside. plan to discharge patient home - will arrange with case management for post op care as needed - follow up in OPD in 7-10 days Post-op pain 10/27/2012 12/26/2015 Overview: currently well controlled with [employer]ED THERAPIST. will start PO pain meds today 10/27. tolerating percocet, pain relatively well controlled. Hodgkin's disease with nodular sclerosis 013 12/26/2015 Overview: Oncology history (per Dr. 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 Hodgkin's disease, unspecified 02/05/2012 0 05/11/2014 Vaginal bleeding 12/26/2015 Overview: --likely from thrombocytopenia. No menses in prior 8 months. 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 provider after BMT Premature menopause 12/26/2015 Postmenopausal atrophic vaginitis 12/26/2015 Dyspareunia 12/26/2015 documented as of this encounter (statuses as of 05/15/2022) [facility] History of Past illness Narrative* Problem Noted Date Resolved Date Menorrhagia with regular cycle 03/15/2017 1 03/03/2017 Overview: Added automatically from request for surgery [id number] History of pulmonary embolism 04/25/2016 Neoplastic (malignant) [...] FOLLOW-UP 10/27/20122015 Overview: 32 yo female from [place]. Family involved with care, at bedside. plan to discharge patient home - will arrange with case management for post op care as needed - follow up in OPD in 7-10 days Post-op pain 10/27/2012 12/26/2015 Overview: currently well controlled with LIC[employer]ED THERAPIST. will start PO pain meds today 10/27. tolerating percocet, pain relatively well controlled. Hodgkin's disease with nodular sclerosis 013 12/26/2015 Overview: Oncology history (per Dr. 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 Hodgkin's disease, unspecified 02/05/2012 0 05/11/2014 Vaginal bleeding 12/26/2015 Overview: --likely from thrombocytopenia. No menses in prior 8 months. 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 provider after BMT Premature menopause 12/26/2015 Postmenopausal atrophic vaginitis 12/26/2015 Dyspareunia 12/26/2015 documented as of this encounter (statuses as of 05/21/2022) [facility] History of Past illness Narrative* Problem Noted Date Resolved Date Menorrhagia with regular cycle 03/15/2017 1 03/03/2017 Overview: Added automatically from request for surgery [id number] History of pulmonary embolism 04/25/2016 Neoplastic (malignant) [...] FOLLOW-UP 10/27/20122015 Overview: 32 yo female from [place]. Family involved with care, at bedside. plan to discharge patient home - will arrange with case management for post op care as needed - follow up in OPD in 7-10 days Post-op pain 10/27/2012 12/26/2015 Overview: currently well controlled with LICENSED THERAPIST. will start PO pain meds today 10/27. tolerating percocet, pain relatively well controlled. Hodgkin's disease with nodular sclerosis 013 12/26/2015 Overview: Oncology history (per Dr. 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 Hodgkin's disease, unspecified 02/05/2012 0 05/11/2014 Vaginal bleeding 12/26/2015 Overview: --likely from thrombocytopenia. No menses in prior 8 months. 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 provider after BMT Premature menopause 12/26/2015 Postmenopausal atrophic vaginitis 12/26/2015 Dyspareunia 12/26/2015 documented as of this encounter (statuses as of 05/21/2022) [facility] History of Past illness Narrative* Problem Noted Date Resolved Date Menorrhagia with regular cycle 03/15/2017 1 03/03/2017 Overview: Added automatically from request for surgery [id number] History of pulmonary embolism 04/25/2016 Neoplastic (malignant) [...] FOLLOW-UP 10/27/20122015 Overview: 32 yo female from [place]. Family involved with care, at bedside. plan to discharge patient home - will arrange with case management for post op care as needed - follow up in OPD in 7-10 days Post-op pain 10/27/2012 12/26/2015 Overview: currently well controlled with LICENSED THERAPIST. will start PO pain meds today 10/27. tolerating percocet, pain relatively well controlled. Hodgkin's disease with nodular sclerosis 013 12/26/2015 Overview: Oncology history (per Dr. 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 Hodgkin's disease, unspecified 02/05/2012 0 05/11/2014 Vaginal bleeding 12/26/2015 Overview: --likely from thrombocytopenia. No menses in prior 8 months. 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 provider after BMT Premature menopause 12/26/2015 Postmenopausal atrophic vaginitis 12/26/2015 Dyspareunia 12/26/2015 documented as of this encounter (statuses as of 06/11/2022) [facility] History of Past illness Narrative* Problem Noted Date Resolved Date Menorrhagia with regular cycle 03/15/2017 1 03/03/2017 Overview: Added automatically from request for surgery [id number] History of pulmonary embolism 04/25/2016 Neoplastic (malignant) [...] FOLLOW-UP 10/27/20122015 Overview: 32 yo female from [place]. Family involved with care, at bedside. plan to discharge patient home - will arrange with case management for post op care as needed - follow up in OPD in 7-10 days Post-op pain 10/27/2012 12/26/2015 Overview: currently well controlled with L[employer]ED THERAPIST. will start PO pain meds today 10/27. tolerating percocet, pain relatively well controlled. Hodgkin's disease with nodular sclerosis 013 12/26/2015 Overview: Oncology history (per Dr. 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 Hodgkin's disease, unspecified 02/05/2012 0 05/11/2014 Vaginal bleeding 12/26/2015 Overview: --likely from thrombocytopenia. No menses in prior 8 months. 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 provider after BMT Premature menopause 12/26/2015 Postmenopausal atrophic vaginitis 12/26/2015 Dyspareunia 12/26/2015 documented as of this encounter (statuses as of 06/12/2022) [facility] History of Past illness Narrative* Problem Noted Date Resolved Date Menorrhagia with regular cycle 03/15/2017 1 03/03/2017 Overview: Added automatically from request for surgery [id number] History of pulmonary embolism 04/25/2016 Neoplastic (malignant) [...] FOLLOW-UP 10/27/20122015 Overview: 32 yo female from [place]. Family involved with care, at bedside. plan to discharge patient home - will arrange with case management for post op care as needed - follow up in OPD in 7-10 days Post-op pain 10/27/2012 12/26/2015 Overview: currently well controlled with [employer]ED THERAPIST. will start PO pain meds today 10/27. tolerating percocet, pain relatively well controlled. Hodgkin's disease with nodular sclerosis 013 12/26/2015 Overview: Oncology history (per Dr. 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 Hodgkin's disease, unspecified 02/05/2012 0 05/11/2014 Vaginal bleeding 12/26/2015 Overview: --likely from thrombocytopenia. No menses in prior 8 months. 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 provider after BMT Premature menopause 12/26/2015 Postmenopausal atrophic vaginitis 12/26/2015 Dyspareunia 12/26/2015 documented as of this encounter (statuses as of 06/12/2022) [facility] of Past illness Narrative* Problem Noted Date Resolved Date Menorrhagia with regular cycle 03/15/2017 1 03/03/2017 Overview: Added automatically from request for surgery [id number] History of pulmonary embolism 04/25/2016 Neoplastic (malignant) [...] FOLLOW-UP 10/27/20122015 Overview: 32 yo female from [place]. Family involved with care, at bedside. plan to discharge patient home - will arrange with case management for post op care as needed - follow up in OPD in 7-10 days Post-op pain 10/27/2012 12/26/2015 Overview: currently well controlled with [employer]ED THERAPIST. will start PO pain meds today 10/27. tolerating percocet, pain relatively well controlled. Hodgkin's disease with nodular sclerosis 013 12/26/2015 Overview: Oncology history (per Dr. 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 Hodgkin's disease, unspecified 02/05/2012 0 05/11/2014 Vaginal bleeding 12/26/2015 Overview: --likely from thrombocytopenia. No menses in prior 8 months. 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 provider after BMT Premature menopause 12/26/2015 Postmenopausal atrophic vaginitis 12/26/2015 Dyspareunia 12/26/2015 documented as of this encounter (statuses as of 06/12/2022) [facility] History of Past illness Narrative* Problem Noted Date Resolved Date Menorrhagia with regular cycle 03/15/2017 1 03/03/2017 Overview: Added automatically from request for surgery [id number] History of pulmonary embolism 04/25/2016 Neoplastic (malignant) [...] FOLLOW-UP 10/27/20122015 Overview: 32 yo female from [place]. Family involved with care, at bedside. plan to discharge patient home - will arrange with case management for post op care as needed - follow up in OPD in 7-10 days Post-op pain 10/27/2012 12/26/2015 Overview: currently well controlled with [employer] THERAPIST. will start PO pain meds today 10/27. tolerating percocet, pain relatively well controlled. Hodgkin's disease with nodular sclerosis 013 12/26/2015 Overview: Oncology history (per Dr. 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 Hodgkin's disease, unspecified 02/05/2012 0 05/11/2014 Vaginal bleeding 12/26/2015 Overview: --likely from thrombocytopenia. No menses in prior 8 months. 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 provider after BMT Premature menopause 12/26/2015 Postmenopausal atrophic vaginitis 12/26/2015 Dyspareunia 12/26/2015 documented as of this encounter (statuses as of 06/15/2022) [facility] of Past illness Narrative* Problem Noted Date Resolved Date Menorrhagia with regular cycle 03/15/2017 1 03/03/2017 Overview: Added automatically from request for surgery [id number] History of pulmonary embolism 04/25/2016 Neoplastic (malignant) [...] FOLLOW-UP 10/27/20122015 Overview: 32 yo female from [place]. Family involved with care, at bedside. plan to discharge patient home - will arrange with case management for post op care as needed - follow up in OPD in 7-10 days Post-op pain 10/27/2012 12/26/2015 Overview: currently well controlled with [employer]ED THERAPIST. will start PO pain meds today 10/27. tolerating percocet, pain relatively well controlled. Hodgkin's disease with nodular sclerosis 013 12/26/2015 Overview: Oncology history (per Dr. 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 Hodgkin's disease, unspecified 02/05/2012 0 05/11/2014 Vaginal bleeding 12/26/2015 Overview: --likely from thrombocytopenia. No menses in prior 8 months. 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 provider after BMT Premature menopause 12/26/2015 Postmenopausal atrophic vaginitis 12/26/2015 Dyspareunia 12/26/2015 documented as of this encounter (statuses as of 07/17/2022) [facility] of Past illness Narrative* Problem Noted Date Resolved Date Menorrhagia with regular cycle 03/15/2017 1 03/03/2017 Overview: Added automatically from request for surgery [id number] History of pulmonary embolism 04/25/2016 Neoplastic (malignant) [...] FOLLOW-UP 10/27/20122015 Overview: 32 yo female from [place]. Family involved with care, at bedside. plan to discharge patient home - will arrange with case management for post op care as needed - follow up in OPD in 7-10 days Post-op pain 10/27/2012 12/26/2015 Overview: currently well controlled with [employer]ED THERAPIST. will start PO pain meds today 10/27. tolerating percocet, pain relatively well controlled. Hodgkin's disease with nodular sclerosis 013 12/26/2015 Overview: Oncology history (per Dr. 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 Hodgkin's disease, unspecified 02/05/2012 0 05/11/2014 Vaginal bleeding 12/26/2015 Overview: --likely from thrombocytopenia. No menses in prior 8 months. 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 provider after BMT Premature menopause 12/26/2015 Postmenopausal atrophic vaginitis 12/26/2015 Dyspareunia 12/26/2015 documented as of this encounter (statuses as of 07/17/2022) [facility] of Past illness Narrative* Problem Noted Date Resolved Date Menorrhagia with regular cycle 03/15/2017 1 03/03/2017 Overview: Added automatically from request for surgery [id number] History of pulmonary embolism 04/25/2016 Neoplastic (malignant) [...] FOLLOW-UP 10/27/20122015 Overview: 32 yo female from [place]. Family involved with care, at bedside. plan to discharge patient home - will arrange with case management for post op care as needed - follow up in OPD in 7-10 days Post-op pain 10/27/2012 12/26/2015 Overview: currently well controlled with [employer]ED THERAPIST. will start PO pain meds today 10/27. tolerating percocet, pain relatively well controlled. Hodgkin's disease with nodular sclerosis 013 12/26/2015 Overview: Oncology history (per Dr. 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 Hodgkin's disease, unspecified 02/05/2012 0 05/11/2014 Vaginal bleeding 12/26/2015 Overview: --likely from thrombocytopenia. No menses in prior 8 months. Scant amount reported on 2/9 and 03/30, now resolved --monitor bleeding by counting pads --should f/u with her [employer] provider after BMT Premature menopause 12/26/2015 Postmenopausal atrophic vaginitis 12/26/2015 Dyspareunia 12/26/2015 documented as of this encounter (statuses as of 07/18/2022) [facility] of Past illness Narrative* Problem Noted Date Resolved Date Menorrhagia with regular cycle 03/15/2017 1 03/03/2017 Overview: Added automatically from request for surgery [id number] History of pulmonary embolism 04/25/2016 Neoplastic (malignant) [...] FOLLOW-UP 10/27/20122015 Overview: 32 yo female from [place]. Family involved with care, at bedside. plan to discharge patient home - will arrange with case management for post op care as needed - follow up in OPD in 7-10 days Post-op pain 10/27/2012 12/26/2015 Overview: currently well controlled with [employer]ED THERAPIST. will start PO pain meds today 10/27. tolerating percocet, pain relatively well controlled. Hodgkin's disease with nodular sclerosis 013 12/26/2015 Overview: Oncology history (per Dr. 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 Hodgkin's disease, unspecified 02/05/2012 0 05/11/2014 Vaginal bleeding 12/26/2015 Overview: --likely from thrombocytopenia. No menses in prior 8 months. 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 provider after BMT Premature menopause 12/26/2015 Postmenopausal atrophic vaginitis 12/26/2015 Dyspareunia 12/26/2015 documented as of this encounter (statuses as of 07/19/2022) [facility] of Past illness Narrative* Problem Noted Date Resolved Date Menorrhagia with regular cycle 03/15/2017 1 03/03/2017 Overview: Added automatically from request for surgery [id number] History of pulmonary embolism 04/25/2016 Neoplastic (malignant) [...] FOLLOW-UP 10/27/20122015 Overview: 32 yo female from [place]. Family involved with care, at bedside. plan to discharge patient home - will arrange with case management for post op care as needed - follow up in OPD in 7-10 days Post-op pain 10/27/2012 12/26/2015 Overview: currently well controlled with [employer]ER[employer]IST. will start PO pain meds today 10/27. tolerating percocet, pain relatively well controlled. Hodgkin's disease with nodular sclerosis 013 12/26/2015 Overview: Oncology history (per Dr. 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 Hodgkin's disease, unspecified 02/05/2012 0 05/11/2014 Vaginal bleeding 12/26/2015 Overview: --likely from thrombocytopenia. No menses in prior 8 months. 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 provider after BMT Premature menopause 12/26/2015 Postmenopausal atrophic vaginitis 12/26/2015 Dyspareunia 12/26/2015 documented as of this encounter (statuses as of 07/19/2022) [facility] History of Past illness Narrative* Problem Noted Date Resolved Date Menorrhagia with regular cycle 03/15/2017 1 03/03/2017 Overview: Added automatically from request for surgery [id number] History of pulmonary embolism 04/25/2016 Neoplastic (malignant) [...] FOLLOW-UP 10/27/20122015 Overview: 32 yo female from [place], [place]. Family involved with care, at bedside. plan to discharge patient home - will arrange with case management for post op care as needed - follow up in OPD in 7-10 days Post-op pain 10/27/2012 12/26/2015 Overview: currently well controlled with [employer]ED THERAPIST. will start PO pain meds today 10/27. tolerating percocet, pain relatively well controlled. Hodgkin's disease with nodular sclerosis 013 12/26/2015 Overview: Oncology history (per Dr. 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 Hodgkin's disease, unspecified 02/05/2012 0 05/11/2014 Vaginal bleeding 12/26/2015 Overview: --likely from thrombocytopenia. No menses in prior 8 months. 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 provider after BMT Premature menopause 12/26/2015 Postmenopausal atrophic vaginitis 12/26/2015 Dyspareunia 12/26/2015 documented as of this encounter (statuses as of 07/25/2022) [facility] History of Past illness Narrative* Problem Noted Date Resolved Date Menorrhagia with regular cycle 03/15/2017 1 03/03/2017 Overview: Added automatically from request for surgery [id number] History of pulmonary embolism 04/25/2016 Neoplastic (malignant) [...] FOLLOW-UP 10/27/20122015 Overview: 32 yo female from [place]. Family involved with care, at bedside. plan to discharge patient home - will arrange with case management for post op care as needed - follow up in OPD in 7-10 days Post-op pain 10/27/2012 12/26/2015 Overview: currently well controlled with [employer]ED THERAPIST. will start PO pain meds today 10/27. tolerating percocet, pain relatively well controlled. Hodgkin's disease with nodular sclerosis 013 12/26/2015 Overview: Oncology history (per Dr. 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 Hodgkin's disease, unspecified 02/05/2012 0 05/11/2014 Vaginal bleeding 12/26/2015 Overview: --likely from thrombocytopenia. No menses in prior 8 months. 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 provider after BMT Premature menopause 12/26/2015 Postmenopausal atrophic vaginitis 12/26/2015 Dyspareunia 12/26/2015 documented as of this encounter (statuses as of 07/25/2022) [facility] History of Past illness Narrative* Problem Noted Date Resolved Date Menorrhagia with regular cycle 03/15/2017 1 03/03/2017 Overview: Added automatically from request for surgery [id number] History of pulmonary embolism 04/25/2016 Neoplastic (malignant) [...] FOLLOW-UP 10/27/20122015 Overview: 32 yo female from [place]. Family involved with care, at bedside. plan to discharge patient home - will arrange with case management for post op care as needed - follow up in OPD in 7-10 days Post-op pain 10/27/2012 12/26/2015 Overview: currently well controlled with [employer]ED THERAPIST. will start PO pain meds today 10/27. tolerating percocet, pain relatively well controlled. Hodgkin's disease with nodular sclerosis 013 12/26/2015 Overview: Oncology history (per Dr. 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 Hodgkin's disease, unspecified 02/05/2012 0 05/11/2014 Vaginal bleeding 12/26/2015 Overview: --likely from thrombocytopenia. No menses in prior 8 months. 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 provider after BMT Premature menopause 12/26/2015 Postmenopausal atrophic vaginitis 12/26/2015 Dyspareunia 12/26/2015 documented as of this encounter (statuses as of 07/25/2022) [facility] History of Past illness Narrative* Problem Noted Date Resolved Date Menorrhagia with regular cycle 03/15/2017 1 03/03/2017 Overview: Added automatically from request for surgery [id number] History of pulmonary embolism 04/25/2016 Neoplastic (malignant) [...] FOLLOW-UP 10/27/20122015 Overview: 32 yo female from [place]. Family involved with care, at bedside. plan to discharge patient home - will arrange with case management for post op care as needed - follow up in OPD in 7-10 days Post-op pain 10/27/2012 12/26/2015 Overview: currently well controlled with LIC[employer]ED THERAPIST. will start PO pain meds today 10/27. tolerating percocet, pain relatively well controlled. Hodgkin's disease with nodular sclerosis 013 12/26/2015 Overview: Oncology history (per Dr. 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 Hodgkin's disease, unspecified 02/05/2012 0 05/11/2014 Vaginal bleeding 12/26/2015 Overview: --likely from thrombocytopenia. No menses in prior 8 months. 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 provider after BMT Premature menopause 12/26/2015 Postmenopausal atrophic vaginitis 12/26/2015 Dyspareunia 12/26/2015 documented as of this encounter (statuses as of 08/02/2022) [facility] History of Past illness Narrative* Problem Noted Date Resolved Date Menorrhagia with regular cycle 03/15/2017 1 03/03/2017 Overview: Added automatically from request for surgery [id number] History of pulmonary embolism 04/25/2016 Neoplastic (malignant) [...] FOLLOW-UP 10/27/20122015 Overview: 32 yo female from [place]. Family involved with care, at bedside. plan to discharge patient home - will arrange with case management for post op care as needed - follow up in OPD in 7-10 days Post-op pain 10/27/2012 12/26/2015 Overview: currently well controlled with LICENSED THERAPIST. will start PO pain meds today 10/27. tolerating percocet, pain relatively well controlled. Hodgkin's disease with nodular sclerosis 013 12/26/2015 Overview: Oncology history (per Dr. 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 Hodgkin's disease, unspecified 02/05/2012 0 05/11/2014 Vaginal bleeding 12/26/2015 Overview: --likely from thrombocytopenia. No menses in prior 8 months. 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 provider after BMT Premature menopause 12/26/2015 Postmenopausal atrophic vaginitis 12/26/2015 Dyspareunia 12/26/2015 documented as of this encounter (statuses as of 08/05/2022) [facility] History of Past illness Narrative* Problem Noted Date Resolved Date Menorrhagia with regular cycle 03/15/2017 1 03/03/2017 Overview: Added automatically from request for surgery [id number] History of pulmonary embolism 04/25/2016 Neoplastic (malignant) [...] FOLLOW-UP 10/27/20122015 Overview: 32 yo female from [place]. Family involved with care, at bedside. plan to discharge patient home - will arrange with case management for post op care as needed - follow up in OPD in 7-10 days Post-op pain 10/27/2012 12/26/2015 Overview: currently well controlled with LICENSED THERAPIST. will start PO pain meds today 10/27. tolerating percocet, pain relatively well controlled. Hodgkin's disease with nodular sclerosis 013 12/26/2015 Overview: Oncology history (per Dr. 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 Hodgkin's disease, unspecified 02/05/2012 0 05/11/2014 Vaginal bleeding 12/26/2015 Overview: --likely from thrombocytopenia. No menses in prior 8 months. 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 provider after BMT Premature menopause 12/26/2015 Postmenopausal atrophic vaginitis 12/26/2015 Dyspareunia 12/26/2015 documented as of this encounter (statuses as of 08/10/2022) [facility] History of Past illness Narrative* Problem Noted Date Resolved Date Menorrhagia with regular cycle 03/15/2017 1 03/03/2017 Overview: Added automatically from request for surgery [id number] History of pulmonary embolism 04/25/2016 Neoplastic (malignant) [...] FOLLOW-UP 10/27/20122015 Overview: 32 yo female from [place]. Family involved with care, at bedside. plan to discharge patient home - will arrange with case management for post op care as needed - follow up in OPD in 7-10 days Post-op pain 10/27/2012 12/26/2015 Overview: currently well controlled with LIC[employer]ED THERAPIST. will start PO pain meds today 10/27. tolerating percocet, pain relatively well controlled. Hodgkin's disease with nodular sclerosis 013 12/26/2015 Overview: Oncology history (per Dr. 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 Hodgkin's disease, unspecified 02/05/2012 0 05/11/2014 Vaginal bleeding 12/26/2015 Overview: --likely from thrombocytopenia. No menses in prior 8 months. 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 provider after BMT Premature menopause 12/26/2015 Postmenopausal atrophic vaginitis 12/26/2015 Dyspareunia 12/26/2015 documented as of this encounter (statuses as of 08/10/2022) [facility] History of Past illness Narrative* Problem Noted Date Resolved Date Menorrhagia with regular cycle 03/15/2017 1 03/03/2017 Overview: Added automatically from request for surgery [id number] History of pulmonary embolism 04/25/2016 Neoplastic (malignant) [...] FOLLOW-UP 10/27/20122015 Overview: 32 yo female from [place]. Family involved with care, at bedside. plan to discharge patient home - will arrange with case management for post op care as needed - follow up in OPD in 7-10 days Post-op pain 10/27/2012 12/26/2015 Overview: currently well controlled with [employer]ED THERAPIST. will start PO pain meds today 10/27. tolerating percocet, pain relatively well controlled. Hodgkin's disease with nodular sclerosis 013 12/26/2015 Overview: Oncology history (per Dr. 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 Hodgkin's disease, unspecified 02/05/2012 0 05/11/2014 Vaginal bleeding 12/26/2015 Overview: --likely from thrombocytopenia. No menses in prior 8 months. 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 provider after BMT Premature menopause 12/26/2015 Postmenopausal atrophic vaginitis 12/26/2015 Dyspareunia 12/26/2015 documented as of this encounter (statuses as of 08/17/2022) [facility] History of Past illness Narrative* Problem Noted Date Resolved Date Menorrhagia with regular cycle 03/15/2017 1 03/03/2017 Overview: Added automatically from request for surgery [id number] History of pulmonary embolism 04/25/2016 Neoplastic (malignant) [...] FOLLOW-UP 10/27/20122015 Overview: 32 yo female from [place]. Family involved with care, at bedside. plan to discharge patient home - will arrange with case management for post op care as needed - follow up in OPD in 7-10 days Post-op pain 10/27/2012 12/26/2015 Overview: currently well controlled with [employer]IC[employer]ED THERAPIST. will start PO pain meds today 10/27. tolerating percocet, pain relatively well controlled. Hodgkin's disease with nodular sclerosis 013 12/26/2015 Overview: Oncology history (per Dr. 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 Hodgkin's disease, unspecified 02/05/2012 0 05/11/2014 Vaginal bleeding 12/26/2015 Overview: --likely from thrombocytopenia. No menses in prior 8 months. 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 provider after BMT Premature menopause 12/26/2015 Postmenopausal atrophic vaginitis 12/26/2015 Dyspareunia 12/26/2015 documented as of this encounter (statuses as of 08/23/2022) [facility] History of Past illness Narrative* Problem Noted Date Diagnosed Date Resolved Date Menorrhagia with regular cycle 03/15/2017 01/01/2018 Overview: Added automatically from request for surgery [id number] History of pulmonary embolism 04/25/2016 01/01/2018 Neoplastic [...] FOLLOW-UP 10/27/2012 Overview: 32 yo female from [place]. Family involved with care, at bedside. plan to discharge patient home - will arrange with case management for post op care as needed - follow up in OPD in 7-10 days Post-op pain 10/27/2012 12/26/2015 Overview: currently well controlled with [employer]ED THERAPIST. will start PO pain meds today 10/27. tolerating percocet, pain relatively well controlled. Hodgkin's disease with nodular sclerosis 05/27/2012 12/26/2015 Overview: Oncology history (per Dr. 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 Hodgkin's disease, unspecified 02/05/2012 05/11/2014 Vaginal bleeding 12/26/2015 Overview: --likely from thrombocytopenia. No menses in prior 8 months. 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 provider after BMT Premature menopause 12/26/19 16 Postmenopausal atrophic vaginitis 12/26/2015 Dyspareunia 12/26/2015 documented as of this encounter (statuses as of 08/27/2022) [facility] of Past illness Narrative* Problem Noted Date Diagnosed Date Resolved Date Menorrhagia with regular cycle 03/15/2017 01/01/2018 Overview: Added automatically from request for surgery [id number] History of pulmonary embolism 04/25/2016 01/01/2018 Neoplastic [...] FOLLOW-UP 10/27/2012 Overview: 32 yo female from [place]. Family involved with care, at bedside. plan to discharge patient home - will arrange with case management for post op care as needed - follow up in OPD in 7-10 days Post-op pain 10/27/2012 12/26/2015 Overview: currently well controlled with [employer]ED THERAPIST. will start PO pain meds today 10/27. tolerating percocet, pain relatively well controlled. Hodgkin's disease with nodular sclerosis 05/27/2012 12/26/2015 Overview: Oncology history (per Dr. 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 Hodgkin's disease, unspecified 02/05/2012 05/11/2014 Vaginal bleeding 12/26/2015 Overview: --likely from thrombocytopenia. No menses in prior 8 months. 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 provider after BMT Premature menopause 12/26/19 16 Postmenopausal atrophic vaginitis 12/26/2015 Dyspareunia 12/26/2015 documented as of this encounter (statuses as of 08/30/2022) [facility] of Past illness Narrative* Problem Noted Date Diagnosed Date Resolved Date Menorrhagia with regular cycle 03/15/2017 01/01/2018 Overview: Added automatically from request for surgery [id number] History of pulmonary embolism 04/25/2016 01/01/2018 Neoplastic [...] FOLLOW-UP 10/27/2012 Overview: 32 yo female from [place]. Family involved with care, at bedside. plan to discharge patient home - will arrange with case management for post op care as needed - follow up in OPD in 7-10 days Post-op pain 10/27/2012 12/26/2015 Overview: currently well controlled with LICENSED THERAPIST. will start PO pain meds today 10/27. tolerating percocet, pain relatively well controlled. Hodgkin's disease with nodular sclerosis 05/27/2012 12/26/2015 Overview: Oncology history (per Dr. 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 Hodgkin's disease, unspecified 02/05/2012 05/11/2014 Vaginal bleeding 12/26/2015 Overview: --likely from thrombocytopenia. No menses in prior 8 months. 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 provider after BMT Premature menopause 12/26/19 16 Postmenopausal atrophic vaginitis 12/26/2015 Dyspareunia 12/26/2015 documented as of this encounter (statuses as of 08/31/2022) [facility] of Past illness Narrative* Problem Noted Date Diagnosed Date Resolved Date Menorrhagia with regular cycle 03/15/2017 01/01/2018 Overview: Added automatically from request for surgery [id number] History of pulmonary embolism 04/25/2016 01/01/2018 Neoplastic [...] FOLLOW-UP 10/27/2012 Overview: 32 yo female from [place]. Family involved with care, at bedside. plan to discharge patient home - will arrange with case management for post op care as needed - follow up in OPD in 7-10 days Post-op pain 10/27/2012 12/26/2015 Overview: currently well controlled with LIC[employer]ED THERAPIST. will start PO pain meds today 10/27. tolerating percocet, pain relatively well controlled. Hodgkin's disease with nodular sclerosis 05/27/2012 12/26/2015 Overview: Oncology history (per Dr. 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 Hodgkin's disease, unspecified 02/05/2012 05/11/2014 Vaginal bleeding 12/26/2015 Overview: --likely from thrombocytopenia. No menses in prior 8 months. 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 provider after BMT Premature menopause 12/26/19 16 Postmenopausal atrophic vaginitis 12/26/2015 Dyspareunia 12/26/2015 documented as of this encounter (statuses as of 09/01/2022) [facility] of Past illness Narrative* Problem Noted Date Diagnosed Date Resolved Date Menorrhagia with regular cycle 03/15/2017 01/01/2018 Overview: Added automatically from request for surgery [id number] History of pulmonary embolism 04/25/2016 01/01/2018 Neoplastic [...] FOLLOW-UP 10/27/2012 Overview: 32 yo female from [place]. Family involved with care, at bedside. plan to discharge patient home - will arrange with case management for post op care as needed - follow up in OPD in 7-10 days Post-op pain 10/27/2012 12/26/2015 Overview: currently well controlled with LIC[employer]ED THERAPIST. will start PO pain meds today 10/27. tolerating percocet, pain relatively well controlled. Hodgkin's disease with nodular sclerosis 05/27/2012 12/26/2015 Overview: Oncology history (per Dr. 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 Hodgkin's disease, unspecified 02/05/2012 05/11/2014 Vaginal bleeding 12/26/2015 Overview: --likely from thrombocytopenia. No menses in prior 8 months. 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 provider after BMT Premature menopause 12/26/19 16 Postmenopausal atrophic vaginitis 12/26/2015 Dyspareunia 12/26/2015 documented as of this encounter (statuses as of 09/06/2022) [facility] of Past illness Narrative* Problem Noted Date Diagnosed Date Resolved Date Menorrhagia with regular cycle 03/15/2017 01/01/2018 Overview: Added automatically from request for surgery [id number] History of pulmonary embolism 04/25/2016 01/01/2018 Neoplastic [...] FOLLOW-UP 10/27/2012 Overview: 32 yo female from [place]. Family involved with care, at bedside. plan to discharge patient home - will arrange with case management for post op care as needed - follow up in OPD in 7-10 days Post-op pain 10/27/2012 12/26/2015 Overview: currently well controlled with [employer]ED THERAPIST. will start PO pain meds today 10/27. tolerating percocet, pain relatively well controlled. Hodgkin's disease with nodular sclerosis 05/27/2012 12/26/2015 Overview: Oncology history (per Dr. 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 Hodgkin's disease, unspecified 02/05/2012 05/11/2014 Vaginal bleeding 12/26/2015 Overview: --likely from thrombocytopenia. No menses in prior 8 months. 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 provider after BMT Premature menopause 12/26/19 16 Postmenopausal atrophic vaginitis 12/26/2015 Dyspareunia 12/26/2015 documented as of this encounter (statuses as of 09/13/2022) [facility]01-[facility] History of Past illness Narrative* Problem Noted Date Diagnosed Date Resolved Date Menorrhagia with regular cycle 03/15/2017 01/01/2018 Overview: Added automatically from request for surgery [id number] History of pulmonary embolism 04/25/2016 01/01/2018 Neoplastic [...] FOLLOW-UP 10/27/2012 Overview: 32 yo female from [place], [place]. Family involved with care, at bedside. plan to discharge patient home - will arrange with case management for post op care as needed - follow up in OPD in 7-10 days Post-op pain 10/27/2012 12/26/2015 Overview: currently well controlled with LICENSED THERAPIST. will start PO pain meds today 10/27. tolerating percocet, pain relatively well controlled. Hodgkin's disease with nodular sclerosis 05/27/2012 12/26/2015 Overview: Oncology history (per Dr. 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 Hodgkin's disease, unspecified 02/05/2012 05/11/2014 Vaginal bleeding 12/26/2015 Overview: --likely from thrombocytopenia. No menses in prior 8 months. 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 provider after BMT Premature menopause 12/26/19 16 Postmenopausal atrophic vaginitis 12/26/2015 Dyspareunia 12/26/2015 documented as of this encounter (statuses as of 09/28/2022) [facility] History of Past illness Narrative* Problem Noted Date Diagnosed Date Resolved Date Menorrhagia with regular cycle 03/15/2017 01/01/2018 Overview: Added automatically from request for surgery [id number] History of pulmonary embolism 04/25/2016 01/01/2018 Neoplastic [...] FOLLOW-UP 10/27/2012 Overview: 32 yo female from [place]. Family involved with care, at bedside. plan to discharge patient home - will arrange with case management for post op care as needed - follow up in OPD in 7-10 days Post-op pain 10/27/2012 12/26/2015 Overview: currently well controlled with LICENSED THERAPIST. will start PO pain meds today 10/27. tolerating percocet, pain relatively well controlled. Hodgkin's disease with nodular sclerosis 05/27/2012 12/26/2015 Overview: Oncology history (per Dr. 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 Hodgkin's disease, unspecified 02/05/2012 05/11/2014 Vaginal bleeding 12/26/2015 Overview: --likely from thrombocytopenia. No menses in prior 8 months. 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 provider after BMT Premature menopause 12/26/19 16 Postmenopausal atrophic vaginitis 12/26/2015 Dyspareunia 12/26/2015 documented as of this encounter (statuses as of 10/08/2022) [facility] History of Past illness Narrative* Problem Noted Date Diagnosed Date Resolved Date Menorrhagia with regular cycle 03/15/2017 01/01/2018 Overview: Added automatically from request for surgery [id number] History of pulmonary embolism 04/25/2016 01/01/2018 Neoplastic [...] FOLLOW-UP 10/27/2012 Overview: 32 yo female from [place]. Family involved with care, at bedside. plan to discharge patient home - will arrange with case management for post op care as needed - follow up in OPD in 7-10 days Post-op pain 10/27/2012 12/26/2015 Overview: currently well controlled with LICENSED THERAPIST. will start PO pain meds today 10/27. tolerating percocet, pain relatively well controlled. Hodgkin's disease with nodular sclerosis 05/27/2012 12/26/2015 Overview: Oncology history (per Dr. 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 Hodgkin's disease, unspecified 02/05/2012 05/11/2014 Vaginal bleeding 12/26/2015 Overview: --likely from thrombocytopenia. No menses in prior 8 months. 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 provider after BMT Premature menopause 12/26/19 16 Postmenopausal atrophic vaginitis 12/26/2015 Dyspareunia 12/26/2015 documented as of this encounter (statuses as of 10/09/2022) [facility] History of Past illness Narrative* Problem Noted Date Diagnosed Date Resolved Date Menorrhagia with regular cycle 03/15/2017 01/01/2018 Overview: Added automatically from request for surgery [id number] History of pulmonary embolism 04/25/2016 01/01/2018 Neoplastic [...] FOLLOW-UP 10/27/2012 Overview: 32 yo female from [place]. Family involved with care, at bedside. plan to discharge patient home - will arrange with case management for post op care as needed - follow up in OPD in 7-10 days Post-op pain 10/27/2012 12/26/2015 Overview: currently well controlled with LICENSED THERAPIST. will start PO pain meds today 10/27. tolerating percocet, pain relatively well controlled. Hodgkin's disease with nodular sclerosis 05/27/2012 12/26/2015 Overview: Oncology history (per Dr. 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 Hodgkin's disease, unspecified 02/05/2012 05/11/2014 Vaginal bleeding 12/26/2015 Overview: --likely from thrombocytopenia. No menses in prior 8 months. 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 provider after BMT Premature menopause 12/26/19 16 Postmenopausal atrophic vaginitis 12/26/2015 Dyspareunia 12/26/2015 documented as of this encounter (statuses as of 10/09/2022) [facility] History of Past illness Narrative* Problem Noted Date Diagnosed Date Resolved Date Menorrhagia with regular cycle 03/15/2017 01/01/2018 Overview: Added automatically from request for surgery [id number] History of pulmonary embolism 04/25/2016 01/01/2018 Neoplastic [...] FOLLOW-UP 10/27/2012 Overview: 32 yo female from [place]. Family involved with care, at bedside. plan to discharge patient home - will arrange with case management for post op care as needed - follow up in OPD in 7-10 days Post-op pain 10/27/2012 12/26/2015 Overview: currently well controlled with LICENSED THERAPIST. will start PO pain meds today 10/27. tolerating percocet, pain relatively well controlled. Hodgkin's disease with nodular sclerosis 05/27/2012 12/26/2015 Overview: Oncology history (per Dr. 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 Hodgkin's disease, unspecified 02/05/2012 05/11/2014 Vaginal bleeding 12/26/2015 Overview: --likely from thrombocytopenia. No menses in prior 8 months. 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 provider after BMT Premature menopause 12/26/19 16 Postmenopausal atrophic vaginitis 12/26/2015 Dyspareunia 12/26/2015 documented as of this encounter (statuses as of 10/10/2022) [facility] History of Past illness Narrative* Problem Noted Date Diagnosed Date Resolved Date Menorrhagia with regular cycle 03/15/2017 01/01/2018 Overview: Added automatically from request for surgery [id number] History of pulmonary embolism 04/25/2016 01/01/2018 Neoplastic [...] FOLLOW-UP 10/27/2012 Overview: 32 yo female from [place]. Family involved with care, at bedside. plan to discharge patient home - will arrange with case management for post op care as needed - follow up in OPD in 7-10 days Post-op pain 10/27/2012 12/26/2015 Overview: currently well controlled with LICENSED THERAPIST. will start PO pain meds today 10/27. tolerating percocet, pain relatively well controlled. Hodgkin's disease with nodular sclerosis 05/27/2012 12/26/2015 Overview: Oncology history (per Dr. 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 Hodgkin's disease, unspecified 02/05/2012 05/11/2014 Vaginal bleeding 12/26/2015 Overview: --likely from thrombocytopenia. No menses in prior 8 months. 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 provider after BMT Premature menopause 12/26/19 16 Postmenopausal atrophic vaginitis 12/26/2015 Dyspareunia 12/26/2015 documented as of this encounter (statuses as of 10/10/2022) [facility] History of Past illness Narrative* Problem Noted Date Diagnosed Date Resolved Date Menorrhagia with regular cycle 03/15/2017 01/01/2018 Overview: Added automatically from request for surgery [id number] History of pulmonary embolism 04/25/2016 01/01/2018 Neoplastic [...] FOLLOW-UP 10/27/2012 Overview: 32 yo female from [place]. Family involved with care, at bedside. plan to discharge patient home - will arrange with case management for post op care as needed - follow up in OPD in 7-10 days Post-op pain 10/27/2012 12/26/2015 Overview: currently well controlled with LICENSED THERAPIST. will start PO pain meds today 10/27. tolerating percocet, pain relatively well controlled. Hodgkin's disease with nodular sclerosis 05/27/2012 12/26/2015 Overview: Oncology history (per Dr. 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 Hodgkin's disease, unspecified 02/05/2012 05/11/2014 Vaginal bleeding 12/26/2015 Overview: --likely from thrombocytopenia. No menses in prior 8 months. 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 provider after BMT Premature menopause 12/26/19 16 Postmenopausal atrophic vaginitis 12/26/2015 Dyspareunia 12/26/2015 documented as of this encounter (statuses as of 10/18/2022) [facility] History of Past illness Narrative* Problem Noted Date Diagnosed Date Resolved Date Menorrhagia with regular cycle 03/15/2017 01/01/2018 Overview: Added automatically from request for surgery [id number] History of pulmonary embolism 04/25/2016 01/01/2018 Neoplastic [...] FOLLOW-UP 10/27/2012 Overview: 32 yo female from [place]. Family involved with care, at bedside. plan to discharge patient home - will arrange with case management for post op care as needed - follow up in OPD in 7-10 days Post-op pain 10/27/2012 12/26/2015 Overview: currently well controlled with LICENSED THERAPIST. will start PO pain meds today 10/27. tolerating percocet, pain relatively well controlled. Hodgkin's disease with nodular sclerosis 05/27/2012 12/26/2015 Overview: Oncology history (per Dr. 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 Hodgkin's disease, unspecified 02/05/2012 05/11/2014 Vaginal bleeding 12/26/2015 Overview: --likely from thrombocytopenia. No menses in prior 8 months. 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 provider after BMT Premature menopause 12/26/19 16 Postmenopausal atrophic vaginitis 12/26/2015 Dyspareunia 12/26/2015 documented as of this encounter (statuses as of 10/18/2022) [facility] of Past illness Narrative* Problem Noted Date Diagnosed Date Resolved Date Menorrhagia with regular cycle 03/15/2017 01/01/2018 Overview: Added automatically from request for surgery [id number] History of pulmonary embolism 04/25/2016 01/01/2018 Neoplastic [...] FOLLOW-UP 10/27/2012 Overview: 32 yo female from [place]. Family involved with care, at bedside. plan to discharge patient home - will arrange with case management for post op care as needed - follow up in OPD in 7-10 days Post-op pain 10/27/2012 12/26/2015 Overview: currently well controlled with LICENSED THERAPIST. will start PO pain meds today 10/27. tolerating percocet, pain relatively well controlled. Hodgkin's disease with nodular sclerosis 05/27/2012 12/26/2015 Overview: Oncology history (per Dr. 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 Hodgkin's disease, unspecified 02/05/2012 05/11/2014 Vaginal bleeding 12/26/2015 Overview: --likely from thrombocytopenia. No menses in prior 8 months. 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 provider after BMT Premature menopause 12/26/19 16 Postmenopausal atrophic vaginitis 12/26/2015 Dyspareunia 12/26/2015 documented as of this encounter (statuses as of 10/19/2022) [facility] of Past illness Narrative* Problem Noted Date Diagnosed Date Resolved Date Menorrhagia with regular cycle 03/15/2017 01/01/2018 Overview: Added automatically from request for surgery [id number] History of pulmonary embolism 04/25/2016 01/01/2018 Neoplastic [...] FOLLOW-UP 10/27/2012 Overview: 32 yo female from [place]. Family involved with care, at bedside. plan to discharge patient home - will arrange with case management for post op care as needed - follow up in OPD in 7-10 days Post-op pain 10/27/2012 12/26/2015 Overview: currently well controlled with LICENSED THERAPIST. will start PO pain meds today 10/27. tolerating percocet, pain relatively well controlled. Hodgkin's disease with nodular sclerosis 05/27/2012 12/26/2015 Overview: Oncology history (per Dr. 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 Hodgkin's disease, unspecified 02/05/2012 05/11/2014 Vaginal bleeding 12/26/2015 Overview: --likely from thrombocytopenia. No menses in prior 8 months. 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 provider after BMT Premature menopause 12/26/19 16 Postmenopausal atrophic vaginitis 12/26/2015 Dyspareunia 12/26/2015 documented as of this encounter (statuses as of 10/24/2022) [facility] of Past illness Narrative* Problem Noted Date Diagnosed Date Resolved Date Menorrhagia with regular cycle 03/15/2017 01/01/2018 Overview: Added automatically from request for surgery [id number] History of pulmonary embolism 04/25/2016 01/01/2018 Neoplastic [...] FOLLOW-UP 10/27/2012 Overview: 32 yo female from [place]. Family involved with care, at bedside. plan to discharge patient home - will arrange with case management for post op care as needed - follow up in OPD in 7-10 days Post-op pain 10/27/2012 12/26/2015 Overview: currently well controlled with LICENSED THERAPIST. will start PO pain meds today 10/27. tolerating percocet, pain relatively well controlled. Hodgkin's disease with nodular sclerosis 05/27/2012 12/26/2015 Overview: Oncology history (per Dr. 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 Hodgkin's disease, unspecified 02/05/2012 05/11/2014 Vaginal bleeding 12/26/2015 Overview: --likely from thrombocytopenia. No menses in prior 8 months. 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 provider after BMT Premature menopause 12/26/19 16 Postmenopausal atrophic vaginitis 12/26/2015 Dyspareunia 12/26/2015 documented as of this encounter (statuses as of 10/26/2022) [facility] of Past illness Narrative* Problem Noted Date Diagnosed Date Resolved Date Menorrhagia with regular cycle 03/15/2017 01/01/2018 Overview: Added automatically from request for surgery [id number] History of pulmonary embolism 04/25/2016 01/01/2018 Neoplastic [...] FOLLOW-UP 10/27/2012 Overview: 32 yo female from [place]. Family involved with care, at bedside. plan to discharge patient home - will arrange with case management for post op care as needed - follow up in OPD in 7-10 days Post-op pain 10/27/2012 12/26/2015 Overview: currently well controlled with LICENSED THERAPIST. will start PO pain meds today 10/27. tolerating percocet, pain relatively well controlled. Hodgkin's disease with nodular sclerosis 05/27/2012 12/26/2015 Overview: Oncology history (per Dr. 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 Hodgkin's disease, unspecified 02/05/2012 05/11/2014 Vaginal bleeding 12/26/2015 Overview: --likely from thrombocytopenia. No menses in prior 8 months. 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 provider after BMT Premature menopause 12/26/19 16 Postmenopausal atrophic vaginitis 12/26/2015 Dyspareunia 12/26/2015 documented as of this encounter (statuses as of 11/06/2022) [facility] of Past illness Narrative* Problem Noted Date Diagnosed Date Resolved Date Menorrhagia with regular cycle 03/15/2017 01/01/2018 Overview: Added automatically from request for surgery [id number] History of pulmonary embolism 04/25/2016 01/01/2018 Neoplastic [...] FOLLOW-UP 10/27/2012 Overview: 32 yo female from [place]. Family involved with care, at bedside. plan to discharge patient home - will arrange with case management for post op care as needed - follow up in OPD in 7-10 days Post-op pain 10/27/2012 12/26/2015 Overview: currently well controlled with LICENSED THERAPIST. will start PO pain meds today 10/27. tolerating percocet, pain relatively well controlled. Hodgkin's disease with nodular sclerosis 05/27/2012 12/26/2015 Overview: Oncology history (per Dr. 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 Hodgkin's disease, unspecified 02/05/2012 05/11/2014 Vaginal bleeding 12/26/2015 Overview: --likely from thrombocytopenia. No menses in prior 8 months. 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 provider after BMT Premature menopause 12/26/19 16 Postmenopausal atrophic vaginitis 12/26/2015 Dyspareunia 12/26/2015 documented as of this encounter (statuses as of 11/11/2022) [facility] of Past illness Narrative* Problem Noted Date Diagnosed Date Resolved Date Menorrhagia with regular cycle 03/15/2017 01/01/2018 Overview: Added automatically from request for surgery [id number] History of pulmonary embolism 04/25/2016 01/01/2018 Neoplastic [...] FOLLOW-UP 10/27/2012 Overview: 32 yo female from [place]. Family involved with care, at bedside. plan to discharge patient home - will arrange with case management for post op care as needed - follow up in OPD in 7-10 days Post-op pain 10/27/2012 12/26/2015 Overview: currently well controlled with LICENSED THERAPIST. will start PO pain meds today 10/27. tolerating percocet, pain relatively well controlled. Hodgkin's disease with nodular sclerosis 05/27/2012 12/26/2015 Overview: Oncology history (per Dr. 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 Hodgkin's disease, unspecified 02/05/2012 05/11/2014 Vaginal bleeding 12/26/2015 Overview: --likely from thrombocytopenia. No menses in prior 8 months. 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 provider after BMT Premature menopause 12/26/19 16 Postmenopausal atrophic vaginitis 12/26/2015 Dyspareunia 12/26/2015 documented as of this encounter (statuses as of 11/13/2022) [facility] Past [facility] Narrative* Problem Noted Date Diagnosed Date Resolved Date Menorrhagia with regular cycle 03/15/2017 01/01/2018 Overview: Added automatically from request for surgery [id number] History of pulmonary embolism 04/25/2016 01/01/2018 Neoplastic [...] FOLLOW-UP 10/27/2012 Overview: 32 yo female from [place], [place]. Family involved with care, at bedside. plan to discharge patient home - will arrange with case management for post op care as needed - follow up in OPD in 7-10 days Post-op pain 10/27/2012 12/26/2015 Overview: currently well controlled with [employer]. will start PO pain meds today 10/27. tolerating percocet, pain relatively well controlled. Hodgkin's disease with nodular sclerosis 05/27/2012 12/26/2015 Overview: Oncology history (per Dr. 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 Hodgkin's disease, unspecified 02/05/2012 05/11/2014 Vaginal bleeding 12/26/2015 Overview: --likely from thrombocytopenia. No menses in prior 8 months. 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 provider after BMT Premature menopause 12/26/19 16 Postmenopausal atrophic vaginitis 12/26/2015 Dyspareunia 12/26/2015 documented as of this encounter (statuses as of 11/26/2022) [facility] History of Past illness Narrative* Problem Noted Date Diagnosed Date Resolved Date Menorrhagia with regular cycle 03/15/2017 01/01/2018 Overview: Added automatically from request for surgery [id number] History of pulmonary embolism 04/25/2016 01/01/2018 Neoplastic [...] FOLLOW-UP 10/27/2012 Overview: 32 yo female from [place], [place]. Family involved with care, at bedside. plan to discharge patient home - will arrange with case management for post op care as needed - follow up in OPD in 7-10 days Post-op pain 10/27/2012 12/26/2015 Overview: currently well controlled with [employer] THERAPIST. will start PO pain meds today 10/27. tolerating percocet, pain relatively well controlled. Hodgkin's disease with nodular sclerosis 05/27/2012 12/26/2015 Overview: Oncology history (per Dr. 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 Hodgkin's disease, unspecified 02/05/2012 05/11/2014 Vaginal bleeding 12/26/2015 Overview: --likely from thrombocytopenia. No menses in prior 8 months. 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 provider after BMT Premature menopause 12/26/19 16 Postmenopausal atrophic vaginitis 12/26/2015 Dyspareunia 12/26/2015 documented as of this encounter (statuses as of 12/04/2022) [facility] History of Past illness Narrative* Problem Noted Date Diagnosed Date Resolved Date Menorrhagia with regular cycle 03/15/2017 01/01/2018 Overview: Added automatically from request for surgery [id number] History of pulmonary embolism 04/25/2016 01/01/2018 Neoplastic [...] FOLLOW-UP 10/27/2012 Overview: 32 yo female from [place]. Family involved with care, at bedside. plan to discharge patient home - will arrange with case management for post op care as needed - follow up in OPD in 7-10 days Post-op pain 10/27/2012 12/26/2015 Overview: currently well controlled with [employer] THERAPIST. will start PO pain meds today 10/27. tolerating percocet, pain relatively well controlled. Hodgkin's disease with nodular sclerosis 05/27/2012 12/26/2015 Overview: Oncology history (per Dr. 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 Hodgkin's disease, unspecified 02/05/2012 05/11/2014 Vaginal bleeding 12/26/2015 Overview: --likely from thrombocytopenia. No menses in prior 8 months. 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 provider after BMT Premature menopause 12/26/19 16 Postmenopausal atrophic vaginitis 12/26/2015 Dyspareunia 12/26/2015 documented as of this encounter (statuses as of 12/18/2022) [facility] History of Past illness Narrative* Problem Noted Date Diagnosed Date Resolved Date Menorrhagia with regular cycle 03/15/2017 01/01/2018 Overview: Added automatically from request for surgery [id number] History of pulmonary embolism 04/25/2016 01/01/2018 Neoplastic [...] FOLLOW-UP 10/27/2012 Overview: 32 yo female from [place], [place]. Family involved with care, at bedside. plan to discharge patient home - will arrange with case management for post op care as needed - follow up in OPD in 7-10 days Post-op pain 10/27/2012 12/26/2015 Overview: currently well controlled with [employer] THERAPIST. will start PO pain meds today 10/27. tolerating percocet, pain relatively well controlled. Hodgkin's disease with nodular sclerosis 05/27/2012 12/26/2015 Overview: Oncology history (per Dr. 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 Hodgkin's disease, unspecified 02/05/2012 05/11/2014 Vaginal bleeding 12/26/2015 Overview: --likely from thrombocytopenia. No menses in prior 8 months. 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 provider after BMT Premature menopause 12/26/19 16 Postmenopausal atrophic vaginitis 12/26/2015 Dyspareunia 12/26/2015 documented as of this encounter (statuses as of 12/31/2022) [facility] History of Past illness Narrative* Problem Noted Date Diagnosed Date Resolved Date Menorrhagia with regular cycle 03/15/2017 01/01/2018 Overview: Added automatically from request for surgery [id number] History of pulmonary embolism 04/25/2016 01/01/2018 Neoplastic [...] FOLLOW-UP 10/27/2012 Overview: 32 yo female from [place]. Family involved with care, at bedside. plan to discharge patient home - will arrange with case management for post op care as needed - follow up in OPD in 7-10 days Post-op pain 10/27/2012 12/26/2015 Overview: currently well controlled with LIC[employer]ED THERAPIST. will start PO pain meds today 10/27. tolerating percocet, pain relatively well controlled. Hodgkin's disease with nodular sclerosis 05/27/2012 12/26/2015 Overview: Oncology history (per Dr. 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 Hodgkin's disease, unspecified 02/05/2012 05/11/2014 Vaginal bleeding 12/26/2015 Overview: --likely from thrombocytopenia. No menses in prior 8 months. 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 provider after BMT Premature menopause 12/26/19 16 Postmenopausal atrophic vaginitis 12/26/2015 Dyspareunia 12/26/2015 documented as of this encounter (statuses as of 01/03/2023) [facility] History of Past illness Narrative* Problem Noted Date Diagnosed Date Resolved Date Menorrhagia with regular cycle 03/15/2017 01/01/2018 Overview: Added automatically from request for surgery [id number] History of pulmonary embolism 04/25/2016 01/01/2018 Neoplastic [...] FOLLOW-UP 10/27/2012 Overview: 32 yo female from [place]. Family involved with care, at bedside. plan to discharge patient home - will arrange with case management for post op care as needed - follow up in OPD in 7-10 days Post-op pain 10/27/2012 12/26/2015 Overview: currently well controlled with LICENSED THERAPIST. will start PO pain meds today 10/27. tolerating percocet, pain relatively well controlled. Hodgkin's disease with nodular sclerosis 05/27/2012 12/26/2015 Overview: Oncology history (per Dr. 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 Hodgkin's disease, unspecified 02/05/2012 05/11/2014 Vaginal bleeding 12/26/2015 Overview: --likely from thrombocytopenia. No menses in prior 8 months. 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 provider after BMT Premature menopause 12/26/19 16 Postmenopausal atrophic vaginitis 12/26/2015 Dyspareunia 12/26/2015 documented as of this encounter (statuses as of 01/03/2023) [facility] History of Past illness Narrative* Problem Noted Date Diagnosed Date Resolved Date Menorrhagia with regular cycle 03/15/2017 01/01/2018 Overview: Added automatically from request for surgery [id number] History of pulmonary embolism 04/25/2016 01/01/2018 Neoplastic [...] FOLLOW-UP 10/27/2012 Overview: 32 yo female from [place]. Family involved with care, at bedside. plan to discharge patient home - will arrange with case management for post op care as needed - follow up in OPD in 7-10 days Post-op pain 10/27/2012 12/26/2015 Overview: currently well controlled with LIC[employer]ED THERAPIST. will start PO pain meds today 10/27. tolerating percocet, pain relatively well controlled. Hodgkin's disease with nodular sclerosis 05/27/2012 12/26/2015 Overview: Oncology history (per Dr. 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 Hodgkin's disease, unspecified 02/05/2012 05/11/2014 Vaginal bleeding 12/26/2015 Overview: --likely from thrombocytopenia. No menses in prior 8 months. 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 provider after BMT Premature menopause 12/26/19 16 Postmenopausal atrophic vaginitis 12/26/2015 Dyspareunia 12/26/2015 documented as of this encounter (statuses as of 01/07/2023) [facility] History of Past illness Narrative* Problem Noted Date Diagnosed Date Resolved Date Menorrhagia with regular cycle 03/15/2017 01/01/2018 Overview: Added automatically from request for surgery [id number] History of pulmonary embolism 04/25/2016 01/01/2018 Neoplastic [...] FOLLOW-UP 10/27/2012 Overview: 32 yo female from [place]. Family involved with care, at bedside. plan to discharge patient home - will arrange with case management for post op care as needed - follow up in OPD in 7-10 days Post-op pain 10/27/2012 12/26/2015 Overview: currently well controlled with [employer]IC[employer]ED THERAPIST. will start PO pain meds today 10/27. tolerating percocet, pain relatively well controlled. Hodgkin's disease with nodular sclerosis 05/27/2012 12/26/2015 Overview: Oncology history (per Dr. 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 Hodgkin's disease, unspecified 02/05/2012 05/11/2014 Vaginal bleeding 12/26/2015 Overview: --likely from thrombocytopenia. No menses in prior 8 months. 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, 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) 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 [facility] En[facility] for [facility]- [...] [facility]ineoplastic [facility] Diagnosis 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* Diagnosis Simple chronic bronchitis (HCC)- Primary Simple chronic bronchitis Restrictive lung disease Other diseases of lung, not elsewhere classified 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* Diagnosis Muscle cramps Cramp of limb Nodular sclerosing Hodgkin's lymphoma, 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) 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* Diagnosis Muscle cramps Cramp of limb Nodular sclerosis classical Hodgkin lymphoma (HCC) Hodgkin's disease, nodular sclerosis, unspecified site, extranodal and solid organ sites documented [facility] this 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 [facility] Diagnosis Muscle cramps Cramp of limb Nodular sclerosis classical Hodgkin lymphoma (HCC) Hodgkin's disease, nodular sclerosis, unspecified site, extranodal and solid organ sites [facility]* Diagnosis Muscle cramps Cramp of limb Nodular sclerosing Hodgkin's lymphoma, unspecified body region (HCC) [facility]* Diagnosis 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) Nausea Nausea alone [facility]* Diagnosis Hidradenitis suppurativa- Primary Hidradenitis Painful skin lesion Dermatofibroma of left knee [facility] Diagnosis 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 [facility]* Diagnosis Nodular sclerosing Hodgkin's lymphoma, 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) 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 [facility]* Diagnosis Simple chronic bronchitis (HCC) Simple chronic bronchitis [facility] Diagnosis Muscle cramps Cramp of limb [...] (HCC)- Primary [facility]* Diagnosis Nodular sclerosing Hodgkin's lymphoma, unspecified [...] region (HCC) [facility]* Diagnosis 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 [facility]* Diagnosis Nodular sclerosing Hodgkin's lymphoma, unspecified body region (HCC)- Primary [facility]* Diagnosis Nodular sclerosing Hodgkin's lymphoma, unspecified body region (HCC)- Primary History of pulmonary embolism Personal history of pulmonary embolism Chemotherapy-induced neuropathy (HCC) 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 Muscle cramps Cramp of limb [facility] Diagnosis 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 [facility] Diagnosis History of pulmonary embolism Personal history of pulmonary embolism [facility] Diagnosis 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 Nausea Nausea alone [facility]* Diagnosis 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 [facility]* Diagnosis Acne vulgaris- Primary Other acne [facility]* Diagnosis Nodular sclerosing Hodgkin's lymphoma, 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) 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 [facility] Diagnosis 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 Encounter for antineoplastic immunotherapy Encounter for long-term (current) use of medications Encounter for long-term (current) use of other medications [facility] Diagnosis Nodular sclerosing Hodgkin's lymphoma, unspecified body region (HCC)- Primary JOE (dyspnea on exertion) Other dyspnea and respiratory abnormality Chronic cough Cough Chest tightness Other chest pain [facility]* Diagnosis Muscle cramps Cramp of limb Nodular sclerosing Hodgkin's lymphoma, unspecified body region (HCC) [facility]* Diagnosis 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 Cancer related pain Neoplasm related pain (acute) (chronic) Encounter for palliative care [facility] Diagnosis 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 [facility]* Diagnosis Nodular sclerosing Hodgkin's lymphoma, 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) 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 [facility]* Diagnosis Muscle cramps Cramp of limb Nodular sclerosis classical Hodgkin lymphoma (HCC) Hodgkin's disease, nodular sclerosis, unspecified site, extranodal and solid organ sites [facility]* Diagnosis Encounter for palliative care- Primary Opioid use agreement exists Encounters for other specified administrative purpose Anxiety Anxiety state, unspecified Cancer related pain Neoplasm related pain (acute) (chronic) 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) Muscle cramps Cramp of limb [facility]* Diagnosis 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 Encounter for antineoplastic immunotherapy [facility] Diagnosis History of pulmonary embolism Personal history of pulmonary embolism [facility]* Diagnosis Nodular sclerosis Hodgkin lymphoma of [...] solid organ sites [facility]* Diagnosis Muscle cramps Cramp of limb Nodular sclerosing Hodgkin's lymphoma, 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) 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 [facility] Diagnosis Nodular sclerosis Hodgkin lymphoma [...] nodes (HCC)- Primary [facility] Diagnosis 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 marrow replaced by transplant [facility] Diagnosis 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 Encounter for long-term (current) use of medications Encounter for long-term (current) use of other medications Encounter for antineoplastic immunotherapy [facility] Diagnosis 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 Cancer related pain Neoplasm related pain (acute) (chronic) Encounter for palliative care Muscle cramps Cramp of limb Nodular sclerosis classical Hodgkin lymphoma (HCC) Hodgkin's disease, nodular sclerosis, unspecified site, extranodal and solid organ sites [facility] Diagnosis Muscle cramps Cramp of limb Nodular sclerosing Hodgkin's lymphoma, 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) 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 [facility] Diagnosis Encounter for palliative care- Primary 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 Cancer related pain Neoplasm related pain (acute) (chronic) Muscle cramps Cramp of limb Opioid use agreement exists Encounters for other specified administrative purpose [facility] Diagnosis 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 [facility] Diagnosis Nodular sclerosing Hodgkin's lymphoma, 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) 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 [facility] Diagnosis NO SHOW- Primary [facility] Diagnosis 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 Uterine leiomyoma, unspecified location [facility]* Diagnosis Muscle cramps Cramp of limb Nodular sclerosis classical Hodgkin lymphoma (HCC) Hodgkin's disease, nodular sclerosis, unspecified site, extranodal and solid organ sites 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 Cancer related pain Neoplasm related pain (acute) (chronic) Encounter for palliative care [facility] Diagnosis Dyspnea on exertion- Primary Other dyspnea and respiratory abnormality [facility]* Diagnosis 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 Cancer related pain Neoplasm related pain (acute) (chronic) Encounter for palliative care [facility] Diagnosis Nodular sclerosing Hodgkin's lymphoma, unspecified body region (HCC)- Primary [facility]* Diagnosis Palliative care by specialist- Primary Opioid use agreement exists Encounters for other specified administrative purpose Cancer related pain Neoplasm related pain (acute) (chronic) 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) Muscle cramps Cramp of limb [facility] Diagnosis Nodular sclerosing Hodgkin's lymphoma, 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) 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 [facility]* Diagnosis Chronic cough- Primary Cough Productive cough Cough Dyspnea on exertion Other dyspnea and respiratory abnormality Opacity of lung on imaging study [facility] Diagnosis Bronchitis- Primary Bronchitis, not specified as acute or chronic Chronic cough Cough [facility]* Diagnosis Muscle cramps Cramp of [...] due to drugs [facility] Diagnosis Nodular sclerosing Hodgkin's lymphoma, 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) 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 documented [facility] this [facility]* Diagnosis Hidradenitis suppurativa- Primary Hidradenitis Painful skin lesion documented in this 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* Diagnosis History of pulmonary embolism Personal history of pulmonary embolism documented in this encounter [facility] note* Diagnosis Muscle cramps Cramp of limb Nodular sclerosing Hodgkin's lymphoma, unspecified body region (HCC) documented in this encounter [facility] note* Diagnosis Nodular sclerosis Hodgkin lymphoma [...] hypothyroidism Unspecified hypothyroidism [facility]* Diagnosis Muscle cramps Cramp of limb Nodular sclerosing Hodgkin's lymphoma, 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 Cancer related pain Neoplasm related pain (acute) (chronic) Encounter for palliative care [facility] Diagnosis 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 [facility] noteNo assessment information availableK[facility] Work Phone: Evaluation note* Diagnosis Chronic cough Cough [facility]* Diagnosis Bronchitis Bronchitis, not specified as acute or chronic documented [facility]* Diagnosis Restrictive lung disease- Primary Other diseases of lung, not elsewhere classified Chronic cough Cough Post-nasal drip Postnasal drip Hoarseness Dysphonia Dysphagia, unspecified type History of pulmonary embolism Personal history of pulmonary embolism documented [facility] this 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 [facility]* Diagnosis 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 Cancer related pain Neoplasm related pain (acute) (chronic) Encounter for palliative care Muscle cramps Cramp of limb Nodular sclerosing Hodgkin's lymphoma, unspecified body region (HCC) documented [facility]* Diagnosis 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 Restrictive lung disease Other diseases of lung, not elsewhere classified Malaise and fatigue Other malaise and fatigue [facility]* Diagnosis Influenza with pneumonia- Primary Restrictive lung disease Other diseases of lung, not elsewhere classified Hospital discharge follow-up Other follow-up examination [facility]* Diagnosis Influenza with pneumonia [facility]* Diagnosis Muscle cramps Cramp of limb [...] [facility]* Diagnosis Dyspnea on exertion Other dyspnea and respiratory abnormality [facility]* Diagnosis Dysphagia, unspecified type Hoarseness Dysphonia Gastroesophageal reflux disease, unspecified whether esophagitis present LPRD (laryngopharyngeal reflux disease) Other diseases of larynx [facility]* Diagnosis Dyspnea on exertion Other dyspnea and respiratory abnormality [facility]* Diagnosis Restrictive lung disease- Primary Other diseases of lung, not elsewhere classified Wheezing [facility]* Diagnosis Wheezing [facility]* Diagnosis 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 Cancer related pain Neoplasm related pain (acute) (chronic) Encounter for palliative care [facility]* Diagnosis 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 Restrictive lung disease Other diseases of lung, not elsewhere classified Malaise and fatigue Other malaise and fatigue [facility]* Diagnosis Bronchitis- Primary Bronchitis, not specified as acute or chronic Acute non-recurrent pansinusitis Oral thrush Candidiasis of mouth Restrictive lung disease Other diseases of lung, not elsewhere classified Pleural effusion Unspecified pleural effusion [facility]* Diagnosis Pleural effusion, left- Primary Unspecified pleural effusion Pulmonary hypertension (HCC) Other chronic pulmonary heart diseases [facility]* Diagnosis Restrictive lung disease- Primary Other diseases of lung, not elsewhere classified History of pulmonary embolism Personal history of pulmonary embolism 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) Bronchiectasis without complication (HCC) Bronchiectasis without acute exacerbation Simple chronic bronchitis (HCC) Simple chronic bronchitis [facility]* Diagnosis Dysphagia, unspecified type- Primary [facility]* Diagnosis Dysphagia, unspecified type [facility]* Diagnosis Encounter for palliative care- Primary Muscle cramps Cramp of limb Nodular sclerosing Hodgkin's lymphoma, unspecified body region (HCC) Arthritis pain Arthropathy, unspecified, site unspecified 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 Cancer related pain Neoplasm related pain (acute) (chronic) documented in this encounter [facility] note* Diagnosis Dysphagia, unspecified type Gastroesophageal reflux disease, unspecified whether esophagitis present documented [facility]* Diagnosis Pain- Primary Generalized pain documented in this encounter [facility] general Narrative - ReportedNort AV[facility] Other History general Narrative - Reported* Type Description Date Medical History Hodgkin lymphoma of lymph nodes of neck, unspecified Hodgkin lymphoma type Medical History Hypothyroid Medical History Tachycardia Medical History Neuropathy Medical History Pulmonary embolism Medical History 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 Surgical History biopsy Hospitalization History she has had several stay s for her dx [place] [facility] Other Reason for referral (narrative)* Diagnostic Procedure Only (Routine) - Authorized Specialty Diagnoses / Procedures Referred By Contac t Referred To Contact [facility]LECULAR [facility] FUNCTIONAL IMAGING Diagnoses Hodgkin lymphoma, unspecified Hodgkin lymphoma type, unspecified body region (HCC) 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) Procedures NM PET/CT SKULL-THIGH SUBSEQUENT PET IMAGING CT ATTENUATION [place] [address] [place] [address] Molecular & Functional Imaging [address] [place] [address] Referral ID Status Reason Start Date Expiration Date Visits Requested Visits Authorized [id number] Authorized Auto-Generat ed Referral 06/14/2021 07/14/2022 1 1 [facility] for referral (narrative)* Diagnostic Procedure Only (Routine) - Authorized Specialty Diagnoses / Procedures Referred By Contac t Referred To Contact MOLECULAR & FUNCTIONAL IMAGING Diagnoses Nodular sclerosing Hodgkin's lymphoma, unspecified body region (HCC) Procedures NM PET/CT SKULL-THIGH SUBSEQUENT PET IMAGING CT ATTENUATION [place] [address] [address] [facility] [place] [id number] [facility] Functional [facility] [address] [place], [place] [id number] Referral ID Status Reason Start Date Expiration Date Visits Requested Visits Authorized [id number] Authorized Auto-Generat ed Referral 11/15/2021 12/15/2022 1 1 [facility] for referral (narrative)* Outpatient Procedure (Routine) - Pending Review Specialty Diagnoses / Procedures Referred By Heidi george Referred To Contact [facility] Diagnoses Nodular sclerosing Hodgkin's lymphoma, unspecified body region (HCC) OJE (dyspnea on exertion) Chronic cough Procedures ECHO ECHO TTHRC R-T 2D W/WOM-MODE COMPL SPEC&COLR Sylvia Lopez APRN.LEAD SYSTEMS DEVELOPER [address] [place] [address] [facility] [place] [address] [place] [address] Referral ID Status Reason Start Date Expiration Date Visits Requested Visits Authorized [id number] Pending Review Auto-Generat ed Referral 12/27/2021 12/27/2022 1 1 [facility] for referral (narrative)* Diagnostic Procedure Only (Routine) - Pending Review Specialty Diagnoses / Procedures Referred By Heidi george Referred To Contact MOLECULAR & FUNCTIONAL IMAGING Diagnoses Nodular sclerosing Hodgkin's lymphoma, unspecified body region (HCC) Procedures NM PET/CT SKULL-THIGH SUBSEQUENT PET IMAGING CT ATTENUATION [place] [address] [place] [id number] [facility] [address] [place] [id number] Referral ID Status Reason Start Date Expiration Date Visits Requested Visits Authorized [id number] Pending Review Auto-Generat ed Referral 07/18/2022 08/17/2023 1 1 [facility] for referral (narrative)* Outpatient Procedure (Routine) - Authorized Specialty Diagnoses / Procedures Referred By Contac t Referred To [facility] RESPIRATORY JAY EM Diagnoses Bronchitis Procedures NITRIC OXIDE, EXHALED NITRIC OXIDE GAS DETERMINATION Ella Chan APRN.CNP [address] [facility]. [place] [id number] [place] [address] Referral ID Status Reason Start Date Expiration Date Visits Requested Visits Authorized [id number] Authorized Auto-Generat ed Referral 08/02/2022 09/01/2023 1 1 * Outpatient Procedure (Routine) - Authorized Specialty Diagnoses / Procedures Referred By Contac t Referred To [facility] RESPIRATORY JAY EM Diagnoses Chronic cough Procedures LUNG DIFFUSION CAPACITY (DLCO) DIFFUSING CAPACITY Ella Chan APRN.CNP [address] [facility] [place] [address] Respiratory [place] [phone] Referral ID Status Reason Start Date Expiration Date Visits Requested Visits Authorized [id number] Authorized Auto-Generat ed Referral 08/02/2022 09/01/2023 1 1 * Outpatient Procedure (Routine) - Authorized Specialty Diagnoses / Procedures Referred By Contac t Referred To [facility] RESPIRATORY JAY EM Diagnoses Chronic cough Procedures SPIROMETRY - BASELINE AND POST DILATOR BRNCDILAT RSPSE SPMTRY PRE&POST-BRNCDILAT ADMN Ella Chan APRN.CNP [address] [place] [address] Respiratory [address] [place] [address] Referral ID Status Reason Start Date Expiration Date Visits Requested Visits Authorized [id number] Authorized Auto-Generat ed Referral 08/02/2022 09/01/2023 1 1 [facility] for referral (narrative)* Diagnostic Procedure Only (Routine) - Pending Review Specialty Diagnoses / Procedures Referred By Contac t Referred To Contact [facility]LECULAR [facility] FUNCTIONAL IMAGING 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 [facility] [place] [phone] [facility] [address] [place] [address] Referral ID Status Reason Start Date Expiration Date Visits Requested Visits Authorized [id number] Pending Review Auto-Generat ed Referral 08/22/2022 09/21/2023 1 1 [facility] for referral (narrative)* Diagnostic Procedure Only (Routine) - Authorized Specialty Diagnoses / Procedures Referred By Contac t Referred To Contact [facility]LEC[facility] FUNCTIONAL IMAGING Diagnoses 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) Procedures NM PET/CT SKULL-THIGH SUBSEQUENT PET IMAGING CT ATTENUATION SKULL BASE MID-THIGH Alexsander Ledezma MD [address] [place] [address] [place] [address] Molecular & Functional Imaging [address] [place] [address] Referral ID Status Reason Start Date Expiration Date Visits Requested Visits Authorized [id number] Authorized Auto-Generat ed Referral 3 01/31/2024 1 1 [facility] for referral (narrative)* Diagnostic Procedure Only (Routine) - Pending Review Specialty Diagnoses / Procedures Referred By Contac t Referred To Contact XR IMAGING Diagnoses Dysphagia, unspecified type Gastroesophageal reflux disease, unspecified whether esophagitis present Procedures XR ESOPHAGRAM RADIOLOGIC EXAM ESOPHAGUS SINGLE CONTRAST STUDY Loy Merino PA-C [address] [place] [address] [place] [address] Referral ID Status Reason Start Date Expiration Date Visits Requested Visits Authorized [id number] Pending Review Auto-Generat ed Referral 05/22/2023 06/20/2024 1 1 * Diagnostic Procedure Only (Routine) - Authorized Specialty Diagnoses / Procedures Referred By Contac t Referred To Contact XR IMAGING Diagnoses Dysphagia, unspecified type Procedures XR MODIFIED BARIUM SWALLOW W SPEECH THERAPY RADIOLOGIC EXAM SWALLOW FUNCTION CONTRAST STUDY Loy Merino PA-C [address] [place] [phone] [place] [address] Referral ID Status Reason Start Date Expiration Date Visits Requested Visits Authorized [id number] Authorized Auto-Generat ed Referral 05/22/2023 06/20/2024 1 1 [facility] for referral (narrative)* Diagnostic Procedure Only (Routine) - Closed Specialty Diagnoses / Procedures Referred By Contac t Referred To Contact XR IMAGING Diagnoses Dysphagia, unspecified type Procedures XR MODIFIED BARIUM SWALLOW W SPEECH THERAPY RADIOLOGIC EXAM SWALLOW FUNCTION CONTRAST STUDY Loy Merino PA-C [address] [place] [phone] [place] [address] Referral ID Status Reason Start Date Expiration Date V isits Requested Visits Authorized [id number] Closed Auto-Generate d Referral 05/22/2023 06/20/2024 1 1 [facility] for referral (narrative)* Diagnostic Procedure Only (Routine) - Closed Specialty Diagnoses / Procedures Referred By Contac t Referred To Contact XR IMAGING Diagnoses Dysphagia, unspecified type Gastroesophageal reflux disease, unspecified whether esophagitis present Procedures XR ESOPHAGRAM RADIOLOGIC EXAM ESOPHAGUS SINGLE CONTRAST STUDY Loy Merino PA-C [address] [place] [phone] [place] [address] Referral ID Status Reason Start Date Expiration Date V isits Requested Visits Authorized [id number] Closed Auto-Generate d Referral 05/22/2023 06/20/2024 1 1 [facility] for referral (narrative)* Diagnostic Procedure Only (Routine) - Pending Review Specialty Diagnoses / Procedures Referred By Contac t Referred To Contact XR IMAGING Diagnoses Pain Procedures XR WRIST GENERAL 3V PA/LAT/OBL RIGHT RADEX WRIST COMPLETE MINIMUM 3 VIEWS Benjamin Hansen PA-C [address] [place] [address] [place] [address] Referral ID Status Reason Start Date Expiration Date Visits Requested Visits Authorized [id number] Pending Review Auto-Generat ed Referral 07/31/2023 08/28/2024 1 1 [facility] for visit Narrative* Diagnostic Procedure Only (Routine) - Closed Specialty Diagnoses / Procedures Referred By Contac t Referred To Contact XR IMAGING Diagnoses Dysphagia, unspecified type Procedures XR MODIFIED BARIUM SWALLOW W SPEECH THERAPY RADIOLOGIC EXAM SWALLOW FUNCTION CONTRAST STUDY Loy Merino PA-C [address] [place] [address] [place] [address] Referral ID Status Reason Start Date Expiration Date V isits Requested Visits Authorized [id number] Closed Auto-Generate d Referral 05/22/2023 06/20/2024 1 1 [facility] Summary Purpose Family History No Family History Records FoundNo Family History Records FoundNo Family History Records FoundNo Family History Records FoundNo Family History Records FoundNo Family History Records FoundNo Family History Records FoundNo Family History Records FoundNo Family History Records FoundNo Family History Records Found Advance Directives Documents on File Type Date Recorded Patient Natural Resources Specialist Expl anation Advance Directive(s) 09/30/2017 12:34 PM Advance Directive(s) 04/16/2016 9:44 PM Advance Directive(s) 01/28/2016 8:20 PM Documents on File Type Date Recorded Patient Natural Resources Specialist Expl anation Advance Directive(s) 09/30/2017 12:34 PM Advance Directive(s) 04/16/2016 9:44 PM Advance Directive(s) 01/28/2016 8:20 PM Documents on File Type Date Recorded Patient Natural Resources Specialist Expl anation Advance Directive(s) 09/20/2021 8:56 PM [...] Referred By Contac t Referred To Contact Cardiology Diagnoses Pleural effusion, left Pulmonary hypertension (HCC) Procedures CONSULT TO CARDIOLOGY OFFICE/OUTPATIENT [facility] 60 MINUTES Radha Ruano, [employer] SOLUTION ARCHITECT.LEAD SYSTEMS DEVELOPER [address] [place] [address] Referral ID Status Reason Start Date Expiration Date Visits Requested Visits Authorized [id number] Authorized PCP Requested Referral 06/14/2023 06/13/2024 1 1 Specialty Diagnoses / Procedures Referred By Contac t Referred To Contact US IMAGING Diagnoses Pleural effusion, left Procedures US CHEST EFFUSION SURVEY US CHEST REAL TIME W/IMAGE DOCUMENTATION Radha Ruano APRN.LEAD SYSTEMS DEVELOPER [address] [place] [address] [place] [address] Referral ID Status Reason Start Date Expiration Date Visits Requested Visits Authorized [id number] Authorized Auto-Generat ed Referral 06/14/2023 07/13/2024 1 1 Specialty Diagnoses / Procedures Referred By Contac t Referred To Contact Diagnoses Bronchitis Restrictive lung disease Radha Ruano, [employer] SOLUTION ARCHITECT.LEAD SYSTEMS DEVELOPER [address] [place] [address] Referral ID Status Reason Start Date Expiration Date Visits Re quested Visits Authorized [id number] Denied 1 1 Specialty Diagnoses / Procedures Referred By Contac t Referred To Contact Ent - Otolaryngology Diagnoses Dysphagia, unspecified type Hoarseness Procedures CONSULT TO ENT OFFICE/OUTPATIENT [facility] 60 MINUTES Kylie Nunes, [employer] SOLUTION ARCHITECT.LE[employer] SYSTEMS DEVELOPER [id number] [place] [address] Referral ID Status Reason Start Date Expiration Date Visits Requested Visits Authorized [id number] Authorized PCP Requested Referral 03/28/2023 03/27/2024 1 1 Specialty Diagnoses / Procedures Referred By Contac t Referred To Contact CT IMAGING Diagnoses Acute cough Procedures CT CHEST WO IVCON DIAGNOSTIC COMPUTED TOMOGRAPHY [place]ORAX W/[place] [id number] [place] [address] Ct Imaging Referral ID Status Reason Start Date Expiration Date V isits Requested Visits Authorized [id number] Closed Auto-Generate d Referral 05/22/2022 06/21/2023 1 1 Additional Source Comments INFORMATION SOURCE (unrecogn ized section and content) DATE CREATED AUTHOR 03/03/2019 [facility] DATE CREATED AUTHOR AUTHOR'S ORGANIZ ATION 09/22/2019 [facility] DATE CREATED AUTHOR AUTHOR'S ORGANIZ ATION 04/19/2021 [facility] DATE CREATED AUTHOR AUTHOR'S ORGANIZ ATION 07/08/2021 [facility] DATE CREATED AUTHOR AUTHOR'S ORGANIZ ATION 06/23/2022 [facility] DATE CREATED AUTHOR AUTHOR'S ORGANIZ ATION 10/19/2022 [facility] DATE CREATED AUTHOR AUTHOR'S ORGANIZ ATION 03/29/2023 [facility] DATE CREATED AUTHOR AUTHOR'S ORGANIZ ATION 06/08/2023 [facility] DATE CREATED AUTHOR AUTHOR'S ORGANIZ ATION 07/12/2023 [facility] DATE CREATED AUTHOR AUTHOR'S ORGANIZ ATION 07/20/2023 [facility] Source Comments (unrecognize d section and content) In the event this informatio n is protected by the Federal Confidentiality of Alcohol and Drug Abuse Patient Records regulations: The Federal rules restrict any use of the information to criminally investigate or prosecute any alcohol or drug abuse patient.[facility] the event this information is protected by the Federal Confidentiality of Alcohol and Drug Abuse Patient Records regulations: The Federal rules restrict any use of the information to criminally investigate or prosecute any alcohol or drug abuse patient.[facility]In the event this information is protected by the Federal Confidentiality of Alcohol and Drug Abuse Patient Records regulations: The Federal rules restrict any use of the information to criminally investigate or prosecute any alcohol or drug abuse patient.[facility] HospitalIn the event this information is protected by the Federal Confidentiality of Alcohol and Drug Abuse Patient Records regulations: The Federal rules restrict any use of the information to criminally investigate or prosecute any alcohol or drug abuse patient.[facility] HospitalIn the event this information is protected by the Federal Confidentiality of Alcohol and Drug Abuse Patient Records regulations: The Federal rules restrict any use of the information to criminally investigate or prosecute any alcohol or drug abuse patient.[facility] HospitalIn the event this information is protected by the Federal Confidentiality of Alcohol and Drug Abuse Patient Records regulations: The Federal rules restrict any use of the information to criminally investigate or prosecute any alcohol or drug abuse patient.[facility] HospitalIn the event this information is protected by the Federal Confidentiality of Alcohol and Drug Abuse Patient Records regulations: The Federal rules restrict any use of the information to criminally investigate or prosecute any alcohol or drug abuse patient.[facility] HospitalIn the event this information is protected by the Federal Confidentiality of Alcohol and Drug Abuse Patient Records regulations: The Federal rules restrict any use of the information to criminally investigate or prosecute any alcohol or drug abuse patient.[facility] HospitalIn the event this information is protected by the Federal Confidentiality of Alcohol and Drug Abuse Patient Records regulations: The Federal rules restrict any use of the information to criminally investigate or prosecute any alcohol or drug abuse patient.[facility] HospitalIn the event this information is protected by the Federal Confidentiality of Alcohol and Drug Abuse Patient Records regulations: The Federal rules restrict any use of the information to criminally investigate or prosecute any alcohol or drug abuse patient.[facility] HospitalIn the event this information is protected by the Federal Confidentiality of Alcohol and Drug Abuse Patient Records regulations: The Federal rules restrict any use of the information to criminally investigate or prosecute any alcohol or drug abuse patient.[facility] HospitalIn the event this information is protected by the Federal Confidentiality of Alcohol and Drug Abuse Patient Records regulations: The Federal rules restrict any use of the information to criminally investigate or prosecute any alcohol or drug abuse patient.[facility] HospitalIn the event this information is protected by the Federal Confidentiality of Alcohol and Drug Abuse Patient Records regulations: The Federal rules restrict any use of the information to criminally investigate or prosecute any alcohol or drug abuse patient.[facility] HospitalIn the event this information is protected by the Federal Confidentiality of Alcohol and Drug Abuse Patient Records regulations: The Federal rules restrict any use of the information to criminally investigate or prosecute any alcohol or drug abuse patient.[facility] HospitalIn the event this information is protected by the Federal Confidentiality of Alcohol and Drug Abuse Patient Records regulations: The Federal rules restrict any use of the information to criminally investigate or prosecute any alcohol or drug abuse patient.[facility] HospitalIn the event this information is protected by the Federal Confidentiality of Alcohol and Drug Abuse Patient Records regulations: The Federal rules restrict any use of the information to criminally investigate or prosecute any alcohol or drug abuse patient.[facility] HospitalIn the event this information is protected by the Federal Confidentiality of Alcohol and Drug Abuse Patient Records regulations: The Federal rules restrict any use of the information to criminally investigate or prosecute any alcohol or drug abuse patient.[facility] HospitalIn the event this information is protected by the Federal Confidentiality of Alcohol and Drug Abuse Patient Records regulations: The Federal rules restrict any use of the information to criminally investigate or prosecute any alcohol or drug abuse patient.[facility] HospitalIn the event this information is protected by the Federal Confidentiality of Alcohol and Drug Abuse Patient Records regulations: The Federal rules restrict any use of the information to criminally investigate or prosecute any alcohol or drug abuse patient.[facility] HospitalIn the event this information is protected by the Federal Confidentiality of Alcohol and Drug Abuse Patient Records regulations: The Federal rules restrict any use of the information to criminally investigate or prosecute any alcohol or drug abuse patient.[facility] HospitalIn the event this information is protected by the Federal Confidentiality of Alcohol and Drug Abuse Patient Records regulations: The Federal rules restrict any use of the information to criminally investigate or prosecute any alcohol or drug abuse patient.[facility] HospitalIn the event this information is protected by the Federal Confidentiality of Alcohol and Drug Abuse Patient Records regulations: The Federal rules restrict any use of the information to criminally investigate or prosecute any alcohol or drug abuse patient.[facility] HospitalIn the event this information is protected by the Federal Confidentiality of Alcohol and Drug Abuse Patient Records regulations: The Federal rules restrict any use of the information to criminally investigate or prosecute any alcohol or drug abuse patient.[facility] HospitalIn the event this information is protected by the Federal Confidentiality of Alcohol and Drug Abuse Patient Records regulations: The Federal rules restrict any use of the information to criminally investigate or prosecute any alcohol or drug abuse patient.[facility] HospitalIn the event this information is protected by the Federal Confidentiality of Alcohol and Drug Abuse Patient Records regulations: The Federal rules restrict any use of the information to criminally investigate or prosecute any alcohol or drug abuse patient.[facility] HospitalIn the event this information is protected by the Federal Confidentiality of Alcohol and Drug Abuse Patient Records regulations: The Federal rules restrict any use of the information to criminally investigate or prosecute any alcohol or drug abuse patient.[facility] HospitalIn the event this information is protected by the Federal Confidentiality of Alcohol and Drug Abuse Patient Records regulations: The Federal rules restrict any use of the information to criminally investigate or prosecute any alcohol or drug abuse patient.[facility] HospitalIn the event this information is protected by the Federal Confidentiality of Alcohol and Drug Abuse Patient Records regulations: The Federal rules restrict any use of the information to criminally investigate or prosecute any alcohol or drug abuse patient.[facility] HospitalIn the event this information is protected by the Federal Confidentiality of Alcohol and Drug Abuse Patient Records regulations: The Federal rules restrict any use of the information to criminally investigate or prosecute any alcohol or drug abuse patient.[facility] HospitalIn the event this information is protected by the Federal Confidentiality of Alcohol and Drug Abuse Patient Records regulations: The Federal rules restrict any use of the information to criminally investigate or prosecute any alcohol or drug abuse patient.[facility] HospitalIn the event this information is protected by the Federal Confidentiality of Alcohol and Drug Abuse Patient Records regulations: The Federal rules restrict any use of the information to criminally investigate or prosecute any alcohol or drug abuse patient.[facility] HospitalIn the event this information is protected by the Federal Confidentiality of Alcohol and Drug Abuse Patient Records regulations: The Federal rules restrict any use of the information to criminally investigate or prosecute any alcohol or drug abuse patient.[facility] HospitalIn the event this information is protected by the Federal Confidentiality of Alcohol and Drug Abuse Patient Records regulations: The Federal rules restrict any use of the information to criminally investigate or prosecute any alcohol or drug abuse patient.[facility] HospitalIn the event this information is protected by the Federal Confidentiality of Alcohol and Drug Abuse Patient Records regulations: The Federal rules restrict any use of the information to criminally investigate or prosecute any alcohol or drug abuse patient.[facility] HospitalIn the event this information is protected by the Federal Confidentiality of Alcohol and Drug Abuse Patient Records regulations: The Federal rules restrict any use of the information to criminally investigate or prosecute any alcohol or drug abuse patient.[facility] HospitalIn the event this information is protected by the Federal Confidentiality of Alcohol and Drug Abuse Patient Records regulations: The Federal rules restrict any use of the information to criminally investigate or prosecute any alcohol or drug abuse patient.[facility] HospitalIn the event this information is protected by the Federal Confidentiality of Alcohol and Drug Abuse Patient Records regulations: The Federal rules restrict any use of the information to criminally investigate or prosecute any alcohol or drug abuse patient.[facility] HospitalIn the event this information is protected by the Federal Confidentiality of Alcohol and Drug Abuse Patient Records regulations: The Federal rules restrict any use of the information to criminally investigate or prosecute any alcohol or drug abuse patient.[facility] HospitalIn the event this information is protected by the Federal Confidentiality of Alcohol and Drug Abuse Patient Records regulations: The Federal rules restrict any use of the information to criminally investigate or prosecute any alcohol or drug abuse patient.[facility] HospitalIn the event this information is protected by the Federal Confidentiality of Alcohol and Drug Abuse Patient Records regulations: The Federal rules restrict any use of the information to criminally investigate or prosecute any alcohol or drug abuse patient.[facility] HospitalIn the event this information is protected by the Federal Confidentiality of Alcohol and Drug Abuse Patient Records regulations: The Federal rules restrict any use of the information to criminally investigate or prosecute any alcohol or drug abuse patient.[facility] HospitalIn the event this information is protected by the Federal Confidentiality of Alcohol and Drug Abuse Patient Records regulations: The Federal rules restrict any use of the information to criminally investigate or prosecute any alcohol or drug abuse patient.[facility] HospitalIn the event this information is protected by the Federal Confidentiality of Alcohol and Drug Abuse Patient Records regulations: The Federal rules restrict any use of the information to criminally investigate or prosecute any alcohol or drug abuse patient.[facility] HospitalIn the event this information is protected by the Federal Confidentiality of Alcohol and Drug Abuse Patient Records regulations: The Federal rules restrict any use of the information to criminally investigate or prosecute any alcohol or drug abuse patient.[facility] HospitalIn the event this information is protected by the Federal Confidentiality of Alcohol and Drug Abuse Patient Records regulations: The Federal rules restrict any use of the information to criminally investigate or prosecute any alcohol or drug abuse patient.[facility] HospitalIn the event this information is protected by the Federal Confidentiality of Alcohol and Drug Abuse Patient Records regulations: The Federal rules restrict any use of the information to criminally investigate or prosecute any alcohol or drug abuse patient.[facility] HospitalIn the event this information is protected by the Federal Confidentiality of Alcohol and Drug Abuse Patient Records regulations: The Federal rules restrict any use of the information to criminally investigate or prosecute any alcohol or drug abuse patient.[facility] HospitalIn the event this information is protected by the Federal Confidentiality of Alcohol and Drug Abuse Patient Records regulations: The Federal rules restrict any use of the information to criminally investigate or prosecute any alcohol or drug abuse patient.[facility] HospitalIn the event this information is protected by the Federal Confidentiality of Alcohol and Drug Abuse Patient Records regulations: The Federal rules restrict any use of the information to criminally investigate or prosecute any alcohol or drug abuse patient.[facility] HospitalIn the event this information is protected by the Federal Confidentiality of Alcohol and Drug Abuse Patient Records regulations: The Federal rules restrict any use of the information to criminally investigate or prosecute any alcohol or drug abuse patient.[facility] HospitalIn the event this information is protected by the Federal Confidentiality of Alcohol and Drug Abuse Patient Records regulations: The Federal rules restrict any use of the information to criminally investigate or prosecute any alcohol or drug abuse patient.[facility] HospitalIn the event this information is protected by the Federal Confidentiality of Alcohol and Drug Abuse Patient Records regulations: The Federal rules restrict any use of the information to criminally investigate or prosecute any alcohol or drug abuse patient.[facility] HospitalIn the event this information is protected by the Federal Confidentiality of Alcohol and Drug Abuse Patient Records regulations: The Federal rules restrict any use of the information to criminally investigate or prosecute any alcohol or drug abuse patient.[facility] HospitalIn the event this information is protected by the Federal Confidentiality of Alcohol and Drug Abuse Patient Records regulations: The Federal rules restrict any use of the information to criminally investigate or prosecute any alcohol or drug abuse patient.[facility] HospitalIn the event this information is protected by the Federal Confidentiality of Alcohol and Drug Abuse Patient Records regulations: The Federal rules restrict any use of the information to criminally investigate or prosecute any alcohol or drug abuse patient.[facility] HospitalIn the event this information is protected by the Federal Confidentiality of Alcohol and Drug Abuse Patient Records regulations: The Federal rules restrict any use of the information to criminally investigate or prosecute any alcohol or drug abuse patient.[facility] HospitalIn the event this information is protected by the Federal Confidentiality of Alcohol and Drug Abuse Patient Records regulations: The Federal rules restrict any use of the information to criminally investigate or prosecute any alcohol or drug abuse patient.[facility] HospitalIn the event this information is protected by the Federal Confidentiality of Alcohol and Drug Abuse Patient Records regulations: The Federal rules restrict any use of the information to criminally investigate or prosecute any alcohol or drug abuse patient.[facility] HospitalIn the event this information is protected by the Federal Confidentiality of Alcohol and Drug Abuse Patient Records regulations: The Federal rules restrict any use of the information to criminally investigate or prosecute any alcohol or drug abuse patient.[facility] HospitalIn the event this information is protected by the Federal Confidentiality of Alcohol and Drug Abuse Patient Records regulations: The Federal rules restrict any use of the information to criminally investigate or prosecute any alcohol or drug abuse patient.[facility] HospitalIn the event this information is protected by the Federal Confidentiality of Alcohol and Drug Abuse Patient Records regulations: The Federal rules restrict any use of the information to criminally investigate or prosecute any alcohol or drug abuse patient.[facility] HospitalIn the event this information is protected by the Federal Confidentiality of Alcohol and Drug Abuse Patient Records regulations: The Federal rules restrict any use of the information to criminally investigate or prosecute any alcohol or drug abuse patient.[facility] HospitalIn the event this information is protected by the Federal Confidentiality of Alcohol and Drug Abuse Patient Records regulations: The Federal rules restrict any use of the information to criminally investigate or prosecute any alcohol or drug abuse patient.[facility] HospitalIn the event this information is protected by the Federal Confidentiality of Alcohol and Drug Abuse Patient Records regulations: The Federal rules restrict any use of the information to criminally investigate or prosecute any alcohol or drug abuse patient.[facility] HospitalIn the event this information is protected by the Federal Confidentiality of Alcohol and Drug Abuse Patient Records regulations: The Federal rules restrict any use of the information to criminally investigate or prosecute any alcohol or drug abuse patient.[facility] HospitalIn the event this information is protected by the Federal Confidentiality of Alcohol and Drug Abuse Patient Records regulations: The Federal rules restrict any use of the information to criminally investigate or prosecute any alcohol or drug abuse patient.[facility] HospitalIn the event this information is protected by the Federal Confidentiality of Alcohol and Drug Abuse Patient Records regulations: The Federal rules restrict any use of the information to criminally investigate or prosecute any alcohol or drug abuse patient.[facility] HospitalIn the event this information is protected by the Federal Confidentiality of Alcohol and Drug Abuse Patient Records regulations: The Federal rules restrict any use of the information to criminally investigate or prosecute any alcohol or drug abuse patient.[facility] HospitalIn the event this information is protected by the Federal Confidentiality of Alcohol and Drug Abuse Patient Records regulations: The Federal rules restrict any use of the information to criminally investigate or prosecute any alcohol or drug abuse patient.[facility] HospitalIn the event this information is protected by the Federal Confidentiality of Alcohol and Drug Abuse Patient Records regulations: The Federal rules restrict any use of the information to criminally investigate or prosecute any alcohol or drug abuse patient.[facility] HospitalIn the event this information is protected by the Federal Confidentiality of Alcohol and Drug Abuse Patient Records regulations: The Federal rules restrict any use of the information to criminally investigate or prosecute any alcohol or drug abuse patient.[facility] HospitalIn the event this information is protected by the Federal Confidentiality of Alcohol and Drug Abuse Patient Records regulations: The Federal rules restrict any use of the information to criminally investigate or prosecute any alcohol or drug abuse patient.[facility] HospitalIn the event this information is protected by the Federal Confidentiality of Alcohol and Drug Abuse Patient Records regulations: The Federal rules restrict any use of the information to criminally investigate or prosecute any alcohol or drug abuse patient.[facility] HospitalIn the event this information is protected by the Federal Confidentiality of Alcohol and Drug Abuse Patient Records regulations: The Federal rules restrict any use of the information to criminally investigate or prosecute any alcohol or drug abuse patient.[facility] HospitalIn the event this information is protected by the Federal Confidentiality of Alcohol and Drug Abuse Patient Records regulations: The Federal rules restrict any use of the information to criminally investigate or prosecute any alcohol or drug abuse patient.[facility] HospitalIn the event this information is protected by the Federal Confidentiality of Alcohol and Drug Abuse Patient Records regulations: The Federal rules restrict any use of the information to criminally investigate or prosecute any alcohol or drug abuse patient.[facility] HospitalIn the event this information is protected by the Federal Confidentiality of Alcohol and Drug Abuse Patient Records regulations: The Federal rules restrict any use of the information to criminally investigate or prosecute any alcohol or drug abuse patient.[facility] HospitalIn the event this information is protected by the Federal Confidentiality of Alcohol and Drug Abuse Patient Records regulations: The Federal rules restrict any use of the information to criminally investigate or prosecute any alcohol or drug abuse patient.[facility] HospitalIn the event this information is protected by the Federal Confidentiality of Alcohol and Drug Abuse Patient Records regulations: The Federal rules restrict any use of the information to criminally investigate or prosecute any alcohol or drug abuse patient.[facility] HospitalIn the event this information is protected by the Federal Confidentiality of Alcohol and Drug Abuse Patient Records regulations: The Federal rules restrict any use of the information to criminally investigate or prosecute any alcohol or drug abuse patient.[facility] HospitalIn the event this information is protected by the Federal Confidentiality of Alcohol and Drug Abuse Patient Records regulations: The Federal rules restrict any use of the information to criminally investigate or prosecute any alcohol or drug abuse patient.[facility] HospitalIn the event this information is protected by the Federal Confidentiality of Alcohol and Drug Abuse Patient Records regulations: The Federal rules restrict any use of the information to criminally investigate or prosecute any alcohol or drug abuse patient.[facility] HospitalIn the event this information is protected by the Federal Confidentiality of Alcohol and Drug Abuse Patient Records regulations: The Federal rules restrict any use of the information to criminally investigate or prosecute any alcohol or drug abuse patient.[facility] HospitalIn the event this information is protected by the Federal Confidentiality of Alcohol and Drug Abuse Patient Records regulations: The Federal rules restrict any use of the information to criminally investigate or prosecute any alcohol or drug abuse patient.[facility] HospitalIn the event this information is protected by the Federal Confidentiality of Alcohol and Drug Abuse Patient Records regulations: The Federal rules restrict any use of the information to criminally investigate or prosecute any alcohol or drug abuse patient.[facility] HospitalIn the event this information is protected by the Federal Confidentiality of Alcohol and Drug Abuse Patient Records regulations: The Federal rules restrict any use of the information to criminally investigate or prosecute any alcohol or drug abuse patient.[facility] HospitalIn the event this information is protected by the Federal Confidentiality of Alcohol and Drug Abuse Patient Records regulations: The Federal rules restrict any use of the information to criminally investigate or prosecute any alcohol or drug abuse patient.[facility] HospitalIn the event this information is protected by the Federal Confidentiality of Alcohol and Drug Abuse Patient Records regulations: The Federal rules restrict any use of the information to criminally investigate or prosecute any alcohol or drug abuse patient.[facility] HospitalIn the event this information is protected by the Federal Confidentiality of Alcohol and Drug Abuse Patient Records regulations: The Federal rules restrict any use of the information to criminally investigate or prosecute any alcohol or drug abuse patient.[facility] HospitalIn the event this information is protected by the Federal Confidentiality of Alcohol and Drug Abuse Patient Records regulations: The Federal rules restrict any use of the information to criminally investigate or prosecute any alcohol or drug abuse patient.[facility] HospitalIn the event this information is protected by the Federal Confidentiality of Alcohol and Drug Abuse Patient Records regulations: The Federal rules restrict any use of the information to criminally investigate or prosecute any alcohol or drug abuse patient.[facility] HospitalIn the event this information is protected by the Federal Confidentiality of Alcohol and Drug Abuse Patient Records regulations: The Federal rules restrict any use of the information to criminally investigate or prosecute any alcohol or drug abuse patient.[facility] HospitalIn the event this information is protected by the Federal Confidentiality of Alcohol and Drug Abuse Patient Records regulations: The Federal rules restrict any use of the information to criminally investigate or prosecute any alcohol or drug abuse patient.[facility] HospitalIn the event this information is protected by the Federal Confidentiality of Alcohol and Drug Abuse Patient Records regulations: The Federal rules restrict any use of the information to criminally investigate or prosecute any alcohol or drug abuse patient.[facility] HospitalIn the event this information is protected by the Federal Confidentiality of Alcohol and Drug Abuse Patient Records regulations: The Federal rules restrict any use of the information to criminally investigate or prosecute any alcohol or drug abuse patient.[facility] HospitalIn the event this information is protected by the Federal Confidentiality of Alcohol and Drug Abuse Patient Records regulations: The Federal rules restrict any use of the information to criminally investigate or prosecute any alcohol or drug abuse patient.[facility] HospitalIn the event this information is protected by the Federal Confidentiality of Alcohol and Drug Abuse Patient Records regulations: The Federal rules restrict any use of the information to criminally investigate or prosecute any alcohol or drug abuse patient.[facility] HospitalIn the event this information is protected by the Federal Confidentiality of Alcohol and Drug Abuse Patient Records regulations: The Federal rules restrict any use of the information to criminally investigate or prosecute any alcohol or drug abuse patient.[facility] HospitalIn the event this information is protected by the Federal Confidentiality of Alcohol and Drug Abuse Patient Records regulations: The Federal rules restrict any use of the information to criminally investigate or prosecute any alcohol or drug abuse patient.[facility] HospitalIn the event this information is protected by the Federal Confidentiality of Alcohol and Drug Abuse Patient Records regulations: The Federal rules restrict any use of the information to criminally investigate or prosecute any alcohol or drug abuse patient.[facility] HospitalIn the event this information is protected by the Federal Confidentiality of Alcohol and Drug Abuse Patient Records regulations: The Federal rules restrict any use of the information to criminally investigate or prosecute any alcohol or drug abuse patient.[facility] HospitalIn the event this information is protected by the Federal Confidentiality of Alcohol and Drug Abuse Patient Records regulations: The Federal rules restrict any use of the information to criminally investigate or prosecute any alcohol or drug abuse patient.[facility] HospitalIn the event this information is protected by the Federal Confidentiality of Alcohol and Drug Abuse Patient Records regulations: The Federal rules restrict any use of the information to criminally investigate or prosecute any alcohol or drug abuse patient.[facility] HospitalIn the event this information is protected by the Federal Confidentiality of Alcohol and Drug Abuse Patient Records regulations: The Federal rules restrict any use of the information to criminally investigate or prosecute any alcohol or drug abuse patient.[facility] HospitalIn the event this information is protected by the Federal Confidentiality of Alcohol and Drug Abuse Patient Records regulations: The Federal rules restrict any use of the information to criminally investigate or prosecute any alcohol or drug abuse patient.[facility] HospitalIn the event this information is protected by the Federal Confidentiality of Alcohol and Drug Abuse Patient Records regulations: The Federal rules restrict any use of the information to criminally investigate or prosecute any alcohol or drug abuse patient.[facility] HospitalIn the event this information is protected by the Federal Confidentiality of Alcohol and Drug Abuse Patient Records regulations: The Federal rules restrict any use of the information to criminally investigate or prosecute any alcohol or drug abuse patient.[facility] HospitalIn the event this information is protected by the Federal Confidentiality of Alcohol and Drug Abuse Patient Records regulations: The Federal rules restrict any use of the information to criminally investigate or prosecute any alcohol or drug abuse patient.[facility] HospitalIn the event this information is protected by the Federal Confidentiality of Alcohol and Drug Abuse Patient Records regulations: The Federal rules restrict any use of the information to criminally investigate or prosecute any alcohol or drug abuse patient.[facility] HospitalIn the event this information is protected by the Federal Confidentiality of Alcohol and Drug Abuse Patient Records regulations: The Federal rules restrict any use of the information to criminally investigate or prosecute any alcohol or drug abuse patient.[facility] HospitalIn the event this information is protected by the Federal Confidentiality of Alcohol and Drug Abuse Patient Records regulations: The Federal rules restrict any use of the information to criminally investigate or prosecute any alcohol or drug abuse patient.[facility] HospitalIn the event this information is protected by the Federal Confidentiality of Alcohol and Drug Abuse Patient Records regulations: The Federal rules restrict any use of the information to criminally investigate or prosecute any alcohol or drug abuse patient.[facility] HospitalIn the event this information is protected by the Federal Confidentiality of Alcohol and Drug Abuse Patient Records regulations: The Federal rules restrict any use of the information to criminally investigate or prosecute any alcohol or drug abuse patient.[facility] HospitalIn the event this information is protected by the Federal Confidentiality of Alcohol and Drug Abuse Patient Records regulations: The Federal rules restrict any use of the information to criminally investigate or prosecute any alcohol or drug abuse patient.[facility] HospitalIn the event this information is protected by the Federal Confidentiality of Alcohol and Drug Abuse Patient Records regulations: The Federal rules restrict any use of the information to criminally investigate or prosecute any alcohol or drug abuse patient.[facility] HospitalIn the event this information is protected by the Federal Confidentiality of Alcohol and Drug Abuse Patient Records regulations: The Federal rules restrict any use of the information to criminally investigate or prosecute any alcohol or drug abuse patient.[facility] HospitalIn the event this information is protected by the Federal Confidentiality of Alcohol and Drug Abuse Patient Records regulations: The Federal rules restrict any use of the information to criminally investigate or prosecute any alcohol or drug abuse patient.[facility] HospitalIn the event this information is protected by the Federal Confidentiality of Alcohol and Drug Abuse Patient Records regulations: The Federal rules restrict any use of the information to criminally investigate or prosecute any alcohol or drug abuse patient.[facility] HospitalIn the event this information is protected by the Federal Confidentiality of Alcohol and Drug Abuse Patient Records regulations: The Federal rules restrict any use of the information to criminally investigate or prosecute any alcohol or drug abuse patient.[facility] HospitalIn the event this information is protected by the Federal Confidentiality of Alcohol and Drug Abuse Patient Records regulations: The Federal rules restrict any use of the information to criminally investigate or prosecute any alcohol or drug abuse patient.[facility] HospitalIn the event this information is protected by the Federal Confidentiality of Alcohol and Drug Abuse Patient Records regulations: The Federal rules restrict any use of the information to criminally investigate or prosecute any alcohol or drug abuse patient.[facility] HospitalIn the event this information is protected by the Federal Confidentiality of Alcohol and Drug Abuse Patient Records regulations: The Federal rules restrict any use of the information to criminally investigate or prosecute any alcohol or drug abuse patient.[facility] HospitalIn the event this information is protected by the Federal Confidentiality of Alcohol and Drug Abuse Patient Records regulations: The Federal rules restrict any use of the information to criminally investigate or prosecute any alcohol or drug abuse patient.[facility] HospitalIn the event this information is protected by the Federal Confidentiality of Alcohol and Drug Abuse Patient Records regulations: The Federal rules restrict any use of the information to criminally investigate or prosecute any alcohol or drug abuse patient.[facility] HospitalIn the event this information is protected by the Federal Confidentiality of Alcohol and Drug Abuse Patient Records regulations: The Federal rules restrict any use of the information to criminally investigate or prosecute any alcohol or drug abuse patient.[facility] HospitalIn the event this information is protected by the Federal Confidentiality of Alcohol and Drug Abuse Patient Records regulations: The Federal rules restrict any use of the information to criminally investigate or prosecute any alcohol or drug abuse patient.[facility] HospitalIn the event this information is protected by the Federal Confidentiality of Alcohol and Drug Abuse Patient Records regulations: The Federal rules restrict any use of the information to criminally investigate or prosecute any alcohol or drug abuse patient.[facility] HospitalIn the event this information is protected by the Federal Confidentiality of Alcohol and Drug Abuse Patient Records regulations: The Federal rules restrict any use of the information to criminally investigate or prosecute any alcohol or drug abuse patient.[facility] HospitalIn the event this information is protected by the Federal Confidentiality of Alcohol and Drug Abuse Patient Records regulations: The Federal rules restrict any use of the information to criminally investigate or prosecute any alcohol or drug abuse patient.[facility] HospitalIn the event this information is protected by the Federal Confidentiality of Alcohol and Drug Abuse Patient Records regulations: The Federal rules restrict any use of the information to criminally investigate or prosecute any alcohol or drug abuse patient.[facility] HospitalIn the event this information is protected by the Federal Confidentiality of Alcohol and Drug Abuse Patient Records regulations: The Federal rules restrict any use of the information to criminally investigate or prosecute any alcohol or drug abuse patient.[facility] HospitalIn the event this information is protected by the Federal Confidentiality of Alcohol and Drug Abuse Patient Records regulations: The Federal rules restrict any use of the information to criminally investigate or prosecute any alcohol or drug abuse patient.[facility] HospitalIn the event this information is protected by the Federal Confidentiality of Alcohol and Drug Abuse Patient Records regulations: The Federal rules restrict any use of the information to criminally investigate or prosecute any alcohol or drug abuse patient.[facility] HospitalIn the event this information is protected by the Federal Confidentiality of Alcohol and Drug Abuse Patient Records regulations: The Federal rules restrict any use of the information to criminally investigate or prosecute any alcohol or drug abuse patient.[facility] HospitalIn the event this information is protected by the Federal Confidentiality of Alcohol and Drug Abuse Patient Records regulations: The Federal rules restrict any use of the information to criminally investigate or prosecute any alcohol or drug abuse patient.[facility] HospitalIn the event this information is protected by the Federal Confidentiality of Alcohol and Drug Abuse Patient Records regulations: The Federal rules restrict any use of the information to criminally investigate or prosecute any alcohol or drug abuse patient.[facility] HospitalIn the event this information is protected by the Federal Confidentiality of Alcohol and Drug Abuse Patient Records regulations: The Federal rules restrict any use of the information to criminally investigate or prosecute any alcohol or drug abuse patient.[facility] HospitalIn the event this information is protected by the Federal Confidentiality of Alcohol and Drug Abuse Patient Records regulations: The Federal rules restrict any use of the information to criminally investigate or prosecute any alcohol or drug abuse patient.[facility] HospitalIn the event this information is protected by the Federal Confidentiality of Alcohol and Drug Abuse Patient Records regulations: The Federal rules restrict any use of the information to criminally investigate or prosecute any alcohol or drug abuse patient.[facility] HospitalIn the event this information is protected by the Federal Confidentiality of Alcohol and Drug Abuse Patient Records regulations: The Federal rules restrict any use of the information to criminally investigate or prosecute any alcohol or drug abuse patient.[facility] HospitalIn the event this information is protected by the Federal Confidentiality of Alcohol and Drug Abuse Patient Records regulations: The Federal rules restrict any use of the information to criminally investigate or prosecute any alcohol or drug abuse patient.[facility] HospitalIn the event this information is protected by the Federal Confidentiality of Alcohol and Drug Abuse Patient Records regulations: The Federal rules restrict any use of the information to criminally investigate or prosecute any alcohol or drug abuse patient.[facility] HospitalIn the event this information is protected by the Federal Confidentiality of Alcohol and Drug Abuse Patient Records regulations: The Federal rules restrict any use of the information to criminally investigate or prosecute any alcohol or drug abuse patient.[facility] HospitalIn the event this information is protected by the Federal Confidentiality of Alcohol and Drug Abuse Patient Records regulations: The Federal rules restrict any use of the information to criminally investigate or prosecute any alcohol or drug abuse patient.[facility] HospitalIn the event this information is protected by the Federal Confidentiality of Alcohol and Drug Abuse Patient Records regulations: The Federal rules restrict any use of the information to criminally investigate or prosecute any alcohol or drug abuse patient.[facility] HospitalIn the event this information is protected by the Federal Confidentiality of Alcohol and Drug Abuse Patient Records regulations: The Federal rules restrict any use of the information to criminally investigate or prosecute any alcohol or drug abuse patient.[facility] HospitalIn the event this information is protected by the Federal Confidentiality of Alcohol and Drug Abuse Patient Records regulations: The Federal rules restrict any use of the information to criminally investigate or prosecute any alcohol or drug abuse patient.[facility] HospitalIn the event this information is protected by the Federal Confidentiality of Alcohol and Drug Abuse Patient Records regulations: The Federal rules restrict any use of the information to criminally investigate or prosecute any alcohol or drug abuse patient.[facility] HospitalIn the event this information is protected by the Federal Confidentiality of Alcohol and Drug Abuse Patient Records regulations: The Federal rules restrict any use of the information to criminally investigate or prosecute any alcohol or drug abuse patient.[facility] HospitalIn the event this information is protected by the Federal Confidentiality of Alcohol and Drug Abuse Patient Records regulations: The Federal rules restrict any use of the information to criminally investigate or prosecute any alcohol or drug abuse patient.[facility] HospitalIn the event this information is protected by the Federal Confidentiality of Alcohol and Drug Abuse Patient Records regulations: The Federal rules restrict any use of the information to criminally investigate or prosecute any alcohol or drug abuse patient.[facility] HospitalIn the event this information is protected by the Federal Confidentiality of Alcohol and Drug Abuse Patient Records regulations: The Federal rules restrict any use of the information to criminally investigate or prosecute any alcohol or drug abuse patient.[facility] HospitalIn the event this information is protected by the Federal Confidentiality of Alcohol and Drug Abuse Patient Records regulations: The Federal rules restrict any use of the information to criminally investigate or prosecute any alcohol or drug abuse patient.[facility] HospitalIn the event this information is protected by the Federal Confidentiality of Alcohol and Drug Abuse Patient Records regulations: The Federal rules restrict any use of the information to criminally investigate or prosecute any alcohol or drug abuse patient.[facility] HospitalIn the event this information is protected by the Federal Confidentiality of Alcohol and Drug Abuse Patient Records regulations: The Federal rules restrict any use of the information to criminally investigate or prosecute any alcohol or drug abuse patient.[facility] HospitalIn the event this information is protected by the Federal Confidentiality of Alcohol and Drug Abuse Patient Records regulations: The Federal rules restrict any use of the information to criminally investigate or prosecute any alcohol or drug abuse patient.[facility] HospitalIn the event this information is protected by the Federal Confidentiality of Alcohol and Drug Abuse Patient Records regulations: The Federal rules restrict any use of the information to criminally investigate or prosecute any alcohol or drug abuse patient.[facility] HospitalIn the event this information is protected by the Federal Confidentiality of Alcohol and Drug Abuse Patient Records regulations: The Federal rules restrict any use of the information to criminally investigate or prosecute any alcohol or drug abuse patient.[facility] HospitalIn the event this information is protected by the Federal Confidentiality of Alcohol and Drug Abuse Patient Records regulations: The Federal rules restrict any use of the information to criminally investigate or prosecute any alcohol or drug abuse patient.[facility] HospitalIn the event this information is protected by the Federal Confidentiality of Alcohol and Drug Abuse Patient Records regulations: The Federal rules restrict any use of the information to criminally investigate or prosecute any alcohol or drug abuse patient.[facility] HospitalIn the event this information is protected by the Federal Confidentiality of Alcohol and Drug Abuse Patient Records regulations: The Federal rules restrict any use of the information to criminally investigate or prosecute any alcohol or drug abuse patient.[facility] HospitalIn the event this information is protected by the Federal Confidentiality of Alcohol and Drug Abuse Patient Records regulations: The Federal rules restrict any use of the information to criminally investigate or prosecute any alcohol or drug abuse patient.[facility] HospitalIn the event this information is protected by the Federal Confidentiality of Alcohol and Drug Abuse Patient Records regulations: The Federal rules restrict any use of the information to criminally investigate or prosecute any alcohol or drug abuse patient.[facility] HospitalIn the event this information is protected by the Federal Confidentiality of Alcohol and Drug Abuse Patient Records regulations: The Federal rules restrict any use of the information to criminally investigate or prosecute any alcohol or drug abuse patient.[facility] HospitalIn the event this information is protected by the Federal Confidentiality of Alcohol and Drug Abuse Patient Records regulations: The Federal rules restrict any use of the information to criminally investigate or prosecute any alcohol or drug abuse patient.[facility] HospitalIn the event this information is protected by the Federal Confidentiality of Alcohol and Drug Abuse Patient Records regulations: The Federal rules restrict any use of the information to criminally investigate or prosecute any alcohol or drug abuse patient.[facility] HospitalIn the event this information is protected by the Federal Confidentiality of Alcohol and Drug Abuse Patient Records regulations: The Federal rules restrict any use of the information to criminally investigate or prosecute any alcohol or drug abuse patient.[facility] HospitalIn the event this information is protected by the Federal Confidentiality of Alcohol and Drug Abuse Patient Records regulations: The Federal rules restrict any use of the information to criminally investigate or prosecute any alcohol or drug abuse patient.[facility] HospitalIn the event this information is protected by the Federal Confidentiality of Alcohol and Drug Abuse Patient Records regulations: The Federal rules restrict any use of the information to criminally investigate or prosecute any alcohol or drug abuse patient.[facility] HospitalIn the event this information is protected by the Federal Confidentiality of Alcohol and Drug Abuse Patient Records regulations: The Federal rules restrict any use of the information to criminally investigate or prosecute any alcohol or drug abuse patient.[facility] HospitalIn the event this information is protected by the Federal Confidentiality of Alcohol and Drug Abuse Patient Records regulations: The Federal rules restrict any use of the information to criminally investigate or prosecute any alcohol or drug abuse patient.[facility] Reason for Visit (unrecogniz ed section and content) Reason Comments Lymphoma Specialty Diagnoses / Procedures Referred By Contac t Referred To Contact Hematology / HEMATOLOGY/ONCOLOGY Diagnoses 8 week lab Procedures EST PATIENT Jose Vail MD [address] [place] [phone] Alexsander Ledezma MD [address] [place] [address] [place] [address] Referral ID Status Reason Start Date Expiration Date Visits Re quested Visits Authorized [id number] Closed 04/16/2023 02/18/2024 1 1 Reason Comments Established Patient Pembro and follow up Specialty Diagnoses / Procedures Referred By Contac t Referred To Contact Hematology/Oncology / HEMATOLOGY/ONCOLOGY Diagnoses OV ; TX after Procedures EST PATIENT Lamin Stevenson B [address] [place] [address] Sylvia Mancilla APRN.LEAD SYSTEMS DEVELOPER [address] [place] [address] Referral ID Status Reason Start Date Expiration Date V isits Requested Visits Authorized [id number] Authorized 10/25/2021 01/22/2022 99 99 Reason Comments Chemotherapy Treatment keytruda Specialty Diagnoses / Procedures [facility]erred To Contact 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) Procedures [place] [address] [place] [address] [facility] [address] [address] [place] [address] Referral ID Status Reason Start Date Expiration Date V isits Requested Visits Authorized [id number] Authorized 12/11/2019 04/24/2022 99 99 Reason Comments Refill Request Reason Comments Established Patient Pain Anxiety Reason Comments Chemotherapy Treatment Specialty Diagnoses / Procedures [facility] Referred To Contact 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) [place] [address] [place] [address] [facility] [address] [address] [place] [address] Referral ID Status Reason Start Date Expiration Date V isits Requested Visits Authorized [id number] Authorized 12/11/2019 03/10/2020 1 1 Reason Comments Test 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 Reason Onset Date Comments Refill Request 05/17/2021 Reason Comments Care Coordination sinus symptoms Reason Onset Date Comments Refill Request 06/06/2021 Reason Onset Date Comments Refill Request 06/15/2021 Reason Onset Date Comments Refill Request 06/30/2021 Specialty Diagnoses / Procedures [facility] Referred To Contact 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) [place] [address] [place] [address] [facility] [address] [address] [place] [address] Reason Onset Date Comments Refill Request 2021 Reason Comments LESION, SKIN Reason Comments Care Coordination Pall med referral Reason Onset Date Comments Refill Request 08/14/2021 Reason Onset Date Comments Refill Request 08/30/2021 Reason Onset Date Comments Refill Request 09/02/2021 Reason Onset Date Comments Refill Request 09/03/2021 Reason Comments Derm Problem Hs lesions Reason Onset Date Comments Refill Request 09/11/2021 Reason Comments Test Deck Supervisor - ED Follow Up Reason Onset Date Comments Refill Request 10/04/2021 Reason Onset Date Comments Refill Request 10/16/2021 Reason Comments Established Patient Pembro infusion Specialty Diagnoses / Procedures Referred By Contac t Referred To Contact Hematology/Oncology / HEMATOLOGY/ONCOLOGY Diagnoses OV ; TX after Procedures EST PATIENT Lamin Stevenson [address] [place] [address] Sylvia Mancilla APRN.LEAD SYSTEMS DEVELOPER [address] [place] [address] Reason Comments Follow Up Pain Insomnia Reason Onset Date Comments Refill Request 10/31/2021 Reason Onset Date Comments Refill Request 11/07/2021 Reason Comments Orders Reason Comments Established Patient Specialty Diagnoses / Procedures Referred By Contac t Referred To Contact 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) Procedures [place] [address] [place] [address] [facility] [address] [address] [place] [address] Referral ID Status Reason Start Date Expiration Date V isits Requested Visits Authorized [id number] Pending Review 12/11/2019 04/24/2022 99 99 Reason Onset Date Comments Refill Request 12/04/2021 Reason Comments Acne Specialty Diagnoses / Procedures Referred By Contac t Referred To Contact Dermatology / DERMATOLOGY Diagnoses ACNE Procedures EST DPSI GENERAL Self Yuliana, Nova, AWS SOLUTION ARCHITECT.LEAD SYSTEMS DEVELOPER [address] [place] [address] Referral ID Status Reason Start Date Expiration Date V isits Requested Visits Authorized [id number] Closed Financial Clearance Required - OON Payor [...] after [place] [address] [place] [address] [place] [address] [place] [address] Referral ID Status Reason Start Date Expiration Date Visits Re quested Visits Authorized [id number] Closed 02/27/2022 03/30/2022 1 1 Reason Onset Date Comments Refill Request 03/15/2022 Reason Comments Cancer Reason Comments Patient Education Reason Comments Chemotherapy Treatment Keytruda Referral ID Status Reason Start Date Expiration Date V isits Requested Visits Authorized [id number] Authorized 12/11/2019 10/26/2022 99 99 Reason Onset Date Comments Refill Request 04/16/2022 Reason Comments Post Radiation Treatment Follow Up Reason Comments Follow Up Pain Reason Comments Post Radiation Treatment Follow Up Secon d attempt Reason Onset Date Comments Refill Request 05/14/2022 Reason Comments No Show Specialty Diagnoses / Procedures Referred By Contac t Referred To Contact Hematology/Oncology / HEMATOLOGY/ONCOLOGY Diagnoses Acute cough OV with Dr. Ramires on 06/12 Procedures OFFICE/OUTPATIENT NEW HIGH MDM 60-74 MINUTES OFFICE/OUTPATIENT ESTABLISHED HIGH MDM 40-54 MIN EST PATIENT Jose Vail MD [address] [place] [address] [place] [address] [place] [address] Referral ID Status Reason Start Date Expiration Date V isits Requested Visits Authorized [id number] Authorized 05/23/2022 05/24/2023 99 99 Reason Onset [...] 40-54 MIN EST PATIENT Jose Vail MD [address] [place] [address] [place] [address] [place] [address] [place] [address] Reason Comments Dyspnea On Exertion Simple chronic bronchitis History of pulmonary embolism Specialty Diagnoses / Procedures Referred By Heidi george Referred To Contact Pulmonary Disease / PULMONARY [...] RI EST PULM GENERAL Jose Vail MD [address] [place] [address] Ella Chan APRN.LEAD SYSTEMS DEVELOPER [address] [facility] [place] [address] Referral ID Status Reason Start Date Expiration Date Visits Re quested Visits Authorized [id number] Closed 06/26/2022 06/27/2023 1 1 Reason Comments [...] RI EST PULM GENERAL Jose Vail MD [address] [place] [address] Ella Chan APRN.LEAD SYSTEMS DEVELOPER [address] [facility] [place] [address] Referral ID Status Reason Start Date Expiration Date V isits Requested Visits Authorized [id number] Authorized 05/22/2022 05/23/2023 99 99 Specialty Diagnoses / Procedures Referred By Contac t Referred To Contact CT IMAGING Diagnoses Acute cough Procedures CT CHEST WO IVCON DIAGNOSTIC COMPUTED TOMOGRAPHY THORAX W/[place] [address] [place] [address] Ct Imaging Referral ID Status Reason Start Date Expiration Date V isits Requested Visits Authorized [id number] Closed Auto-Generate d Referral 05/22/2022 06/21/2023 1 [...] tion Specialty Diagnoses / Procedures Referred By Contac t Referred To Contact Hematology / HEMATOLOGY/ONCOLOGY Diagnoses Ref by Dr Cyn Ramires due to pt wanting closer to home DX: Hodgkins lymphomaPT REQ BRM Procedures OFFICE/OUTPATIENT NEW HIGH MDM 60-74 MINUTES NEW PATIENT MED ONC Jose Vail MD [address] [facility] [place] [address] Alexsander Ledezma MD [address] [facility] [place] [address] Referral ID Status Reason Start Date Expiration Date Visits Re quested Visits Authorized [id number] Closed 12/26/2022 12/27/2023 1 1 Reason Comments Results Reason Onset Date Comments Refill Request 01/06/2023 Reason Comments Spirometry Specialty Diagnoses / Procedures Referred By Contac t Referred To Contact [facility] Diagnoses Chronic cough Procedures LUNG DIFFUSION CAPACITY (DLCO) DIFFUSING CAPACITY Ella Chan APRN.LEAD SYSTEMS DEVELOPER [address] [facility] [place] [address] [facility] [address] [place] [address] Referral ID Status Reason Start Date Expiration Date V isits Requested Visits Authorized [id number] Closed Auto-Generate d Referral 01/08/2023 02/17/2023 1 1 Specialty Diagnoses / Procedures Referred By Contac t Referred To Contact [facility] Diagnoses Bronchitis Procedures NITRIC OXIDE, EXHALED NITRIC OXIDE GAS DETERMINATION Ella Chan APRN.LEAD SYSTEMS DEVELOPER [address] [facility] [place] [place] [address] [facility] [address] [place] [address] Referral ID Status Reason Start Date Expiration Date V isits Requested Visits Authorized [id number] Closed Auto-Generate d Referral 01/08/2023 02/17/2023 1 [...] MIN RI EST PULM GENERAL Ella Chan, LORY.LEAD SYSTEMS DEVELOPER [address] [place] [address] Kylie Nunes, AWS SOLUTION ARCHITECT.LEAD SYSTEMS DEVELOPER [address] [place] [address] Referral ID Status Reason Start Date Expiration Date Visits Re quested Visits Authorized [id number] Closed 03/12/2023 02/18/2024 1 1 Specialty Diagnoses / Procedures Referred By Contac t Referred To Contact [facility] Diagnoses Bronchitis, not specified as acute or chronic Procedures SPIROMETRY - BASELINE AND POST DILATOR BRNCDILAT RSPSE SPMTRY PRE&POST-BRNCDILAT ADMN Ella Chan, AWS SOLUTION ARCHITECT.LEAD SYSTEMS DEVELOPER [address] [place] [address] [facility] [address] [place] [address] Referral ID Status Reason Start Date Expiration Date V isits Requested Visits Authorized [id number] Closed Auto-Generate d Referral 02/14/2023 03/15/2024 1 1 Reason Comments Med Change Request Reason Comments Lab Orders Reason Onset Date Comments Refill Request 04/08/2023 Reason Comments Lymphoma Follow up Reason Comments Hospital F/U Specialty Diagnoses / Procedures Referred By Contac t Referred To Contact [facility] [place] / PULMONARY MEDICINE Diagnoses Pneumonia Pneumonia, [facility] Follow up, discharged on 04/04 Procedures RI [facility] PUL Jose Galvan MD [address] [facility] [place] [address] Radha Ruano AWS SOLUTION ARCHITECT.LEAD SYSTEMS DEVELOPER [address] [place] [address] Referral ID Status Reason Start Date Expiration Date V isits Requested Visits Authorized [id number] Authorized 04/18/2023 02/18/2024 99 99 Reason Onset Date Comments Refill Request 05/12/2023 Reason Comments Throat Problem Specialty Diagnoses / Procedures Referred By Contac t Referred To Contact Ent - Otolaryngology Diagnoses Dysphagia, unspecified type Hoarseness Procedures CONSULT TO ENT OFFICE/OUTPATIENT [facility] MDM 60 MINUTES Kylie Nunes, AWS SOLUTION ARCHITECT.LEAD SYSTEMS DEVELOPER [address] [place] [address] Referral ID Status Reason Start Date Expiration Date V isits Requested Visits Authorized [id number] Closed PCP Requested Referral 03/28/2023 03/27/2024 1 1 Reason Comments Med Change Request Reason Comments Radiology XR Reason Comments Wheezing Short of breath, Sat. Reason Onset Date Comments Refill Request 06/09/2023 Reason Comments Restrictive lung disease Specialty Diagnoses / Procedures Referred By Contac t Referred To Contact [facility] [place] / PULMONARY MEDICINE Diagnoses Pneumonia Pneumonia, [facility] Follow up, discharged on 04/04 Procedures [facility] Jose Galvan MD [address] [place] [address] [place] [address] Radha Ruano, AWS SOLUTION ARCHITECT.LEAD SYSTEMS DEVELOPER [address] [place] [address] Reason Comments Medication Authorization Reason Comments follow up Specialty Diagnoses / Procedures Referred By [facility] t Referred To Contact Pulmonary and Critical Care Medicine / PULMONARY MEDICINE Diagnoses Follow-up exam ok per Dr. Carver Ms. Potts also needs to be added onto Dr. Carver's schedule at [place] on Saturday06/28/23 at 11 am (it is a hospital day for her but adding her on per Dr. Carver). Dr. Carver would also like her put on the cancellation list for a sooner appt. Procedures OFFICE/OUTPATIENT ESTABLISHED SF MDM 10 MIN OFFICE/OUTPATIENT ESTABLISHED LOW MDM 20 MIN OFFICE/OUTPATIENT ESTABLISHED MOD MDM 30 MIN OFFICE/OUTPATIENT ESTABLISHED HIGH MDM 40 MIN [facility] Jose Galvan MD [address] [place] [address] [place] [address] [place] [address] [place] [address] Referral ID Status Reason Start Date Expiration Date V isits Requested Visits Authorized [id number] Authorized 06/14/2023 02/18/2024 99 9 Reason Comments Speech Instrumental Swallow Eval Speech Discharge Specialty Diagnoses / Procedures [facility] Referred To Contact XR IMAGING Diagnoses Dysphagia, unspecified type Procedures XR MODIFIED BARIUM SWALLOW W SPEECH THERAPY RADIOLOGIC EXAM SWALLOW FUNCTION CONTRAST STUDY Loy Merino PA-C [address] [place] [address] [place] [address] Referral ID Status Reason Start Date Expiration Date V isits Requested Visits Authorized [id number] Closed Auto-Generate d Referral 05/22/2023 06/20/2024 1 1 Reason Comments Radio GI Main HB6 Specialty Diagnoses / Procedures Referred By Contac t Referred To Contact XR IMAGING Diagnoses Dysphagia, unspecified type Gastroesophageal reflux disease, unspecified whether esophagitis present Procedures XR ESOPHAGRAM RADIOLOGIC EXAM ESOPHAGUS SINGLE CONTRAST STUDY Loy Merino PA-C [address] [place] [address] [place] [address] Referral ID Status Reason Start Date Expiration Date V isits Requested Visits Authorized [id number] Closed Auto-Generate d Referral 05/22/2023 06/20/2024 1 1 Care Teams (unrecognized sec tion and content) Test Technician Relationship Specialty Start Date End Date Jose Vail MD PCP - General Internal Medicine 05/07/16 [place] [address] [place] [address] Consulting Hematology/Oncology 01/28/12 [place] [address] [place] [address] Specialty Test Deck Supervisor Hematology/Oncology 11/09/19 [place] [address] [place] [address] Hematology/Oncology 03/30/21 Test Technician Relationship Specialty Start Date End Date Jose Vail MD PCP - General Internal Medicine 05/07/16 [place] [address] [place] [address] Consulting Hematology/Oncology 01/28/12 [place] [address] [place] [address] Specialty Test Deck Supervisor Hematology/Oncology 11/09/19 [place] [address] [place] [address] Hematology/Oncology 03/30/21 Test Technician Relationship Specialty Start Date End Date Jose Vail MD PCP - General Internal Medicine 05/07/16 [place] [address] [place] [address] Consulting Hematology/Oncology 01/28/12 Marilyn [place] [address] [place] [address] Specialty Test Deck Supervisor Hematology/Oncology 11/09/19 [place] [address] [place] [address] Hematology/Oncology 03/30/21 Test Technician Relationship Specialty Start Date End Date Jose Vail MD PCP - General Internal Medicine 05/07/16 [place] [address] [place] [address] Consulting Hematology/Oncology 01/28/12 Marilyn Hughes RN [address] [place] [address] Specialty Test Deck Supervisor Hematology/Oncology 11/09/19 [place] [address] [place] [address] Hematology/Oncology 03/30/21 Test Technician Relationship Specialty Start Date End Date Jose Vail MD PCP - General Internal Medicine 05/07/16 [place] [address] [place] [address] Consulting Hematology/Oncology 01/28/12 Marilyn Hughes, RN [address] [place] [address] Specialty Test Deck Supervisor Hematology/Oncology 11/09/19 [place] [address] [place] [address] Hematology/Oncology 03/30/21 Test Technician Relationship Specialty Start Date End Date Jose Vail MD PCP - General Internal Medicine 05/07/16 [place] [address] [place] [address] Consulting Hematology/Oncology 01/28/12 [place] [address] [place] [address] Specialty Test Deck Supervisor Hematology/Oncology 11/09/19 [place] [address] [place] [address] Hematology/Oncology 03/30/21 Test Technician Relationship Specialty Start Date End Date Jose Vail MD PCP - General Internal Medicine 05/07/16 [place] [address] [place] [address] Consulting Hematology/Oncology 01/28/12 Marily[place] [address] [place] [address] Specialty Test Deck Supervisor Hematology/Oncology 11/09/19 Cyn Ramires MD [id number] [place] [address] Hematology/Oncology 03/30/21 Kristina Pete, RN Specialty Test Deck Supervisor HOSPICE & PALLIATIVE MEDICINE 05/22/21 Test Technician Relationship Specialty Start Date End Date Jose Vail MD PCP - General Internal Medicine 05/07/16 Cyn Ramires MD [id number] [place] [address] Consulting Hematology/Oncology 01/28/12 Marilyn Hughes RN [address] [place] [address] Specialty Test Deck Supervisor Hematology/Oncology 11/09/19 Cyn Ramires MD [id number] [place] [address] Hematology/Oncology 03/30/21 Kristina Pete, RN Specialty Test Deck Supervisor HOSPICE & PALLIATIVE MEDICINE 05/22/21 Test Technician Relationship Specialty Start Date End Date Jose Vail MD PCP - General Internal Medicine 05/07/16 [place] [address] [place] [address] Consulting Hematology/Oncology 01/28/12 Marilyn Hughes RN [id number] [place] [address] Specialty Test Deck Supervisor Hematology/Oncology 11/09/19 [place] [address] [place] [address] Hematology/Oncology 03/30/21 Kristina Pete, RN Specialty Test Deck Supervisor HOSPICE & PALLIATIVE MEDICINE 05/22/21 Test Technician Relationship Specialty Start Date End Date Jose Vail MD PCP - General Internal Medicine 05/07/16 [place] [address] [place] [address] Consulting Hematology/Oncology 01/28/12 Marilyn Hughes, RN [address] [place] [address] Specialty Test Deck Supervisor Hematology/Oncology 11/09/19 [place] [address] Hematology/Oncology 03/30/21 Kristina Pete, MAE Specialty Test Deck Supervisor HOSPICE & PALLIATIVE MEDICINE 05/22/21 Test Technician Relationship Specialty Start Date End Date Jose Vail MD PCP - General Internal Medicine 05/07/16 [place] [address] Consulting Hematology/Oncology 01/28/12 Marilyn Hughes, MAE [address] [place] [address] Specialty Test Deck Supervisor Hematology/Oncology 11/09/19 [place] [address] [place] [address] Hematology/Oncology 03/30/21 Kristina Pete, RN Specialty Test Deck Supervisor HOSPICE & PALLIATIVE MEDICINE 05/22/21 Juan Francisco Hutchinson, AWS SOLUTION ARCHITECT.LEAD SYSTEMS DEVELOPER [address] [place] [address] Palliative Medicine Provider HOSPICE & PALLIATIVE MEDICINE 06/28/21 Test Technician Relationship Specialty Start Date End Date Jose Vail MD PCP - General Internal Medicine 05/07/16 [place] [address] [place] [address] Consulting Hematology/Oncology 01/28/12 [place] [address] [place] [address] Specialty Test Deck Supervisor Hematology/Oncology 11/09/19 [place] [address] [place] [address] Hematology/Oncology 03/30/21 Kristina Pete, MAE Specialty Test Deck Supervisor HOSPICE & PALLIATIVE MEDICINE 05/22/21 Juan Francisco Hutchinson, AWS SOLUTION ARCHITECT.LEAD SYSTEMS DEVELOPER [address] [place] [address] Palliative Medicine Provider HOSPICE & PALLIATIVE MEDICINE 06/28/21 Test Technician Relationship Specialty Start Date End Date Jose Vail MD PCP - General Internal Medicine 05/07/16 [place] [address] [place] [address] Consulting Hematology/Oncology 01/28/12 Mar[place], MAE [address] [place] [address] Specialty Test Deck Supervisor Hematology/Oncology 11/09/19 [place] [address] [place] [address] Hematology/Oncology 03/30/21 Kristina Pete, RN Specialty Test Deck Supervisor HOSPICE & PALLIATIVE MEDICINE 05/22/21 Juan Francisco Hutchinson, AWS SOLUTION ARCHITECT.LEAD SYSTEMS DEVELOPER [address] [place] [address] Palliative Medicine Provider HOSPICE & PALLIATIVE MEDICINE 06/28/21 Test Technician Relationship Specialty Start Date End Date Jose Vail MD PCP - General Internal Medicine 05/07/16 [place] [address] [place] [address] Consulting Hematology/Oncology 01/28/12 [place]E [address] [place] [address] Specialty Test Deck Supervisor Hematology/Oncology 11/09/19 [place] [address] [place] [address] Hematology/Oncology 03/30/21 Kristina Pete, MAE Specialty Test Deck Supervisor HOSPICE & PALLIATIVE MEDICINE 05/22/21 Juan Francisco Hutchinson, AWS SOLUTION ARCHITECT.LEAD SYSTEMS DEVELOPER [address] [place] [address] Palliative Medicine Provider HOSPICE & PALLIATIVE MEDICINE 06/28/21 Test Technician Relationship Specialty Start Date End Date Jose Vail MD PCP - General Internal Medicine 05/07/16 [place] [address] [place] [address] Consulting Hematology/Oncology 01/28/12 [place] [address] [place] [address] Specialty Test Deck Supervisor Hematology/Oncology 11/09/19 [place] [address] [place] [address] Hematology/Oncology 03/30/21 Kristina Pete, RN Specialty Test Deck Supervisor HOSPICE & PALLIATIVE MEDICINE 05/22/21 Juan Francisco Hutchinson, AWS SOLUTION ARCHITECT.LEAD SYSTEMS DEVELOPER [address] [place] [address] Palliative Medicine Provider HOSPICE & PALLIATIVE MEDICINE 06/28/21 Test Technician Relationship Specialty Start Date End Date Jose Vail MD PCP - General Internal Medicine 05/07/16 [place] [address] [place] [address] Consulting Hematology/Oncology 01/28/12 [place] [address] [place] [address] Specialty Test Deck Supervisor Hematology/Oncology 11/09/19 [place] [address] [place] [address] Hematology/Oncology 03/30/21 Kristina Pete, RN Specialty Test Deck Supervisor HOSPICE & PALLIATIVE MEDICINE 05/22/21 Juan Francisco Hutchinson, AWS SOLUTION ARCHITECT.LEAD SYSTEMS DEVELOPER [address] [place] [address] Palliative Medicine Provider HOSPICE & PALLIATIVE MEDICINE 06/28/21 Test Technician Relationship Specialty Start Date End Date Jose Vail MD PCP - General Internal Medicine 05/07/16 [place] [address] [place] [address] Consulting Hematology/Oncology 01/28/12 [place] [address] [place] [address] Specialty Test Deck Supervisor Hematology/Oncology 11/09/19 [place] [address] [place] [address] Hematology/Oncology 03/30/21 Kristina Pete, RN Specialty Test Deck Supervisor HOSPICE & PALLIATIVE MEDICINE 05/22/21 Juan Francisco Hutchinson, AWS SOLUTION ARCHITECT.LEAD SYSTEMS DEVELOPER [address] [place] [address] Palliative Medicine Provider HOSPICE & PALLIATIVE MEDICINE 06/28/21 Test Technician Relationship Specialty Start Date End Date Jose Vail MD PCP - General Internal Medicine 05/07/16 [place] [address] [place] [address] Consulting Hematology/Oncology 01/28/12 [place] [address] [place] [address] Specialty Test Deck Supervisor Hematology/Oncology 11/09/19 [place] [address] [place] [address] Hematology/Oncology 03/30/21 Kristina Pete, RN Specialty Test Deck Supervisor HOSPICE & PALLIATIVE MEDICINE 05/22/21 Juan Francisco Hutchinson, AWS SOLUTION ARCHITECT.LEAD SYSTEMS DEVELOPER [address] [place] [address] Palliative Medicine Provider HOSPICE & PALLIATIVE MEDICINE 06/28/21 Test Technician Relationship Specialty Start Date End Date Jose Vail MD PCP - General Internal Medicine 05/07/16 [place] [address] [place] [address] Consulting Hematology/Oncology 01/28/12 [place] [address] [place] [address] Specialty Test Deck Supervisor Hematology/Oncology 11/09/19 [place] [address] [place] [address] Hematology/Oncology 03/30/21 Kristina Pete, MAE Specialty Test Deck Supervisor HOSPICE & PALLIATIVE MEDICINE 05/22/21 Juan Francisco Hutchinson, AWS SOLUTION ARCHITECT.LEAD SYSTEMS DEVELOPER [address] [place] [address] Palliative Medicine Provider HOSPICE & PALLIATIVE MEDICINE 06/28/21 Test Technician Relationship Specialty Start Date End Date Jose Vail MD PCP - General Internal Medicine 05/07/16 [place] [address] [place] [address] Consulting Hematology/Oncology 01/28/12 [place] [address] [place] [address] Specialty Test Deck Supervisor Hematology/Oncology 11/09/19 [place] [address] [place] [address] Hematology/Oncology 03/30/21 Kristina Pete, MAE Specialty Test Deck Supervisor HOSPICE & PALLIATIVE MEDICINE 05/22/21 Juan Francisco Hutchinson, AWS SOLUTION ARCHITECT.LEAD SYSTEMS DEVELOPER [address] [place] [address] Palliative Medicine Provider HOSPICE & PALLIATIVE MEDICINE 06/28/21 Test Technician Relationship Specialty Start Date End Date Jose Vail MD PCP - General Internal Medicine 05/07/16 [place] [address] [place] [address] Consulting Hematology/Oncology 01/28/12 [place] [address] [place] [address] Specialty Test Deck Supervisor Hematology/Oncology 11/09/19 [place] [address] [place] [address] Hematology/Oncology 03/30/21 Kristina Pete, MAE Specialty Test Deck Supervisor HOSPICE & PALLIATIVE MEDICINE 05/22/21 Juan Francisco Hutchinson, AWS SOLUTION ARCHITECT.LEAD SYSTEMS DEVELOPER [address] [place] [address] Palliative Medicine Provider HOSPICE & PALLIATIVE MEDICINE 06/28/21 Test Technician Relationship Specialty Start Date End Date Jose Vail MD PCP - General Internal Medicine 05/07/16 [place] [address] [place] [address] Consulting Hematology/Oncology 01/28/12 Marilyn Hughes, MAE [address] [place] [address] Specialty Test Deck Supervisor Hematology/Oncology 11/09/19 [place] [address] [place] [address] Hematology/Oncology 03/30/21 Kristina Pete, MAE Specialty Test Deck Supervisor HOSPICE & PALLIATIVE MEDICINE 05/22/21 Juan Francisco Hutchinson, AWS SOLUTION ARCHITECT.LEAD SYSTEMS DEVELOPER [address] [place] [address] Palliative Medicine Provider HOSPICE & PALLIATIVE MEDICINE 06/28/21 Test Technician Relationship Specialty Start Date End Date Jose Vail MD PCP - General Internal Medicine 05/07/16 [place] [address] [place] [address] Consulting Hematology/Oncology 01/28/12 Marilyn Hughes, RN [id number] [place] [address] Specialty Test Deck Supervisor Hematology/Oncology 11/09/19 [place] [address] [place] [address] Hematology/Oncology 03/30/21 Kristina Pete, MAE Specialty Test Deck Supervisor HOSPICE & PALLIATIVE MEDICINE 05/22/21 Juan Francisco Hutchinson, AWS SOLUTION ARCHITECT.LEAD SYSTEMS DEVELOPER [address] [place] [address] Palliative Medicine Provider HOSPICE & PALLIATIVE MEDICINE 06/28/21 Test Technician Relationship Specialty Start Date End Date Jose Vail MD PCP - General Internal Medicine 05/07/16 [place] [address] [place] [address] Consulting Hematology/Oncology 01/28/12 [place] [address] [place] [address] Specialty Test Deck Supervisor Hematology/Oncology 11/09/19 [place] [address] [place] [address] Hematology/Oncology 03/30/21 Kristina Pete, RN Specialty Test Deck Supervisor HOSPICE & PALLIATIVE MEDICINE 05/22/21 Juan Francisco Hutchinson, AWS SOLUTION ARCHITECT.LEAD SYSTEMS DEVELOPER [address] [place] [address] Palliative Medicine Provider HOSPICE & PALLIATIVE MEDICINE 06/28/21 Test Technician Relationship Specialty Start Date End Date Jose Vail MD PCP - General Internal Medicine 05/07/16 [place] [address] [place] [address] Consulting Hematology/Oncology 01/28/12 [place] [address] [place] [address] Specialty Test Deck Supervisor Hematology/Oncology 11/09/19 [place] [address] [place] [address] Hematology/Oncology 03/30/21 Kristina Pete, RN Specialty Test Deck Supervisor HOSPICE & PALLIATIVE MEDICINE 05/22/21 Juan Francisco Hutchinson, AWS SOLUTION ARCHITECT.LEAD SYSTEMS DEVELOPER [address] [place] [address] Palliative Medicine Provider HOSPICE & PALLIATIVE MEDICINE 06/28/21 Test Technician Relationship Specialty Start Date End Date Jose Vail MD PCP - General Internal Medicine 05/07/16 [place] [address] [place] [address] Consulting Hematology/Oncology 01/28/12 [place] [address] [place] [address] Specialty Test Deck Supervisor Hematology/Oncology 11/09/19 [place] [address] [place] [address] Hematology/Oncology 03/30/21 Kristina Pete, RN Specialty Test Deck Supervisor HOSPICE & PALLIATIVE MEDICINE 05/22/21 Juan Francisco Hutchinson, AWS SOLUTION ARCHITECT.LEAD SYSTEMS DEVELOPER [address] [place] [address] Palliative Medicine Provider HOSPICE & PALLIATIVE MEDICINE 06/28/21 Test Technician Relationship Specialty Start Date End Date Jose Vail MD PCP - General Internal Medicine 05/07/16 [place] [address] [place] [address] Consulting Hematology/Oncology 01/28/12 Mar[place] Hughes, MAE [address] [place] [address] Specialty Test Deck Supervisor Hematology/Oncology 11/09/19 [place] [address] [place] [address] Hematology/Oncology 03/30/21 Kristina Pete, RN Specialty Test Deck Supervisor HOSPICE & PALLIATIVE MEDICINE 05/22/21 Juan Francisco Hutchinson, AWS SOLUTION ARCHITECT.LEAD SYSTEMS DEVELOPER [address] [place] [address] Palliative Medicine Provider HOSPICE & PALLIATIVE MEDICINE 06/28/21 Test Technician Relationship Specialty Start Date End Date Jose Vail MD PCP - General Internal Medicine 05/07/16 [place] [address] [place] [address] Consulting Hematology/Oncology 01/28/12 [place] [address] [place] [address] Specialty Test Deck Supervisor Hematology/Oncology 11/09/19 [place] [address] [place] [address] Hematology/Oncology 03/30/21 Kristina Pete, RN Specialty Test Deck Supervisor HOSPICE & PALLIATIVE MEDICINE 05/22/21 Juan Francisco Hutchinson, AWS SOLUTION ARCHITECT.LEAD SYSTEMS DEVELOPER [address] [place] [address] Palliative Medicine Provider HOSPICE & PALLIATIVE MEDICINE 06/28/21 Kylie Mosher, RN Specialty Test Deck Supervisor HOSPICE & PALLIATIVE MEDICINE 09/27/21 Test Technician Relationship Specialty Start Date End Date Jose Vail MD PCP - General Internal Medicine 05/07/16 [place] [address] [place] [address] Consulting Hematology/Oncology 01/28/12 [place] [address] [place] [address] Specialty Test Deck Supervisor Hematology/Oncology 11/09/19 [place] [address] [place] [address] Hematology/Oncology 03/30/21 Kristina Pete, MAE Specialty Test Deck Supervisor HOSPICE & PALLIATIVE MEDICINE 05/22/21 Juan Francisco Hutchinson, AWS SOLUTION ARCHITECT.LEAD SYSTEMS DEVELOPER [address] [place] [address] Palliative Medicine Provider HOSPICE & PALLIATIVE MEDICINE 06/28/21 Kylie Mosher RN Specialty Test Deck Supervisor HOSPICE & PALLIATIVE MEDICINE 09/27/21 Test Technician Relationship Specialty Start Date End Date Jose Vail MD PCP - General Internal Medicine 05/07/16 [place] [address] [place] [address] Consulting Hematology/Oncology 01/28/12 Marilyn Hughes, MAE [id number] [place] [address] Specialty Test Deck Supervisor Hematology/Oncology 11/09/19 [place] [address] [place] [address] Hematology/Oncology 03/30/21 Kristina Pete, MAE Specialty Test Deck Supervisor HOSPICE & PALLIATIVE MEDICINE 05/22/21 Juan Francisco Hutchinson, AWS SOLUTION ARCHITECT.LEAD SYSTEMS DEVELOPER [address] [place] [address] Palliative Medicine Provider HOSPICE & PALLIATIVE MEDICINE 06/28/21 Kylie Mosher RN Specialty Test Deck Supervisor HOSPICE & PALLIATIVE MEDICINE 09/27/21 Test Technician Relationship Specialty Start Date End Date Jose Vail MD PCP - General Internal Medicine 05/07/16 [place] [address] [place] [address] Consulting Hematology/Oncology 01/28/12 [place]E [address] [place] [address] Specialty Test Deck Supervisor Hematology/Oncology 11/09/19 [place] [address] [place] [address] Hematology/Oncology 03/30/21 Kristina Pete, RN Specialty Test Deck Supervisor HOSPICE & PALLIATIVE MEDICINE 05/22/21 Juan Francisco Hutchinson, AWS SOLUTION ARCHITECT.LEAD SYSTEMS DEVELOPER [address] [place] [address] Palliative Medicine Provider HOSPICE & PALLIATIVE MEDICINE 06/28/21 Kylie Mosher, RN Specialty Test Deck Supervisor HOSPICE & PALLIATIVE MEDICINE 09/27/21 Test Technician Relationship Specialty Start Date End Date Jose Vail MD PCP - General Internal Medicine 05/07/16 [place] [address] [place] [address] Consulting Hematology/Oncology 01/28/12 Mar[place]n Hughes, MAE [address] [place] [address] Specialty Test Deck Supervisor Hematology/Oncology 11/09/19 [place] [address] [place] [address] Hematology/Oncology 03/30/21 Kristina Pete, MAE Specialty Test Deck Supervisor HOSPICE & PALLIATIVE MEDICINE 05/22/21 Juan Francisco Hutchinson, AWS SOLUTION ARCHITECT.LEAD SYSTEMS DEVELOPER [address] [place] [address] Palliative Medicine Provider HOSPICE & PALLIATIVE MEDICINE 06/28/21 Kylie Mosher, RN Specialty Test Deck Supervisor HOSPICE & PALLIATIVE MEDICINE 09/27/21 Test Technician Relationship Specialty Start Date End Date Jose Vail MD PCP - General Internal Medicine 05/07/16 [place] [address] [place] [address] Consulting Hematology/Oncology 01/28/12 [place] [address] [place] [address] Specialty Test Deck Supervisor Hematology/Oncology 11/09/19 [place] [address] [place] [address] Hematology/Oncology 03/30/21 Kristina Pete, RN Specialty Test Deck Supervisor HOSPICE & PALLIATIVE MEDICINE 05/22/21 Juan Francisco Hutchinson, AWS SOLUTION ARCHITECT.LEAD SYSTEMS DEVELOPER [address] [place] [address] Palliative Medicine Provider HOSPICE & PALLIATIVE MEDICINE 06/28/21 Kylie Mosher, RN Specialty Test Deck Supervisor HOSPICE & PALLIATIVE MEDICINE 09/27/21 Test Technician Relationship Specialty Start Date End Date Jose Vail MD PCP - General Internal Medicine 05/07/16 [place] [address] [place] [address] Consulting Hematology/Oncology 01/28/12 Mar[place] Hughes, MAE [address] [place] [address] Specialty Test Deck Supervisor Hematology/Oncology 11/09/19 [place] [address] [place] [address] Hematology/Oncology 03/30/21 Kristina ePte, RN Specialty Test Deck Supervisor HOSPICE & PALLIATIVE MEDICINE 05/22/21 Juan Francisco Hutchinson, AWS SOLUTION ARCHITECT.LEAD SYSTEMS DEVELOPER [address] [place] [address] Palliative Medicine Provider HOSPICE & PALLIATIVE MEDICINE 06/28/21 Kylie Mosher, RN Specialty Test Deck Supervisor HOSPICE & PALLIATIVE MEDICINE 09/27/21 Test Technician Relationship Specialty Start Date End Date Jose Vail MD PCP - General Internal Medicine 05/07/16 [place] [address] [place] [address] Consulting Hematology/Oncology 01/28/12 Marilyn Hughes RN [phone] [place] [address] Specialty Test Deck Supervisor Hematology/Oncology 11/09/19 [place] [address] [place] [address] Hematology/Oncology 03/30/21 Kristina Pete, RN Specialty Test Deck Supervisor HOSPICE & PALLIATIVE MEDICINE 05/22/21 Juan Francisco Hutchinson, AWS SOLUTION ARCHITECT.LEAD SYSTEMS DEVELOPER [address] [place] [address] Palliative Medicine Provider HOSPICE & PALLIATIVE MEDICINE 06/28/21 Kylie Mosher RN Specialty Test Deck Supervisor HOSPICE & PALLIATIVE MEDICINE 09/27/21 Test Technician Relationship Specialty Start Date End Date Jose Vail MD PCP - General Internal Medicine 05/07/16 [place] [address] [place] [address] Consulting Hematology/Oncology 01/28/12 Marilyn Hughes RN [id number] [place] [address] Specialty Test Deck Supervisor Hematology/Oncology 11/09/19 [place] [address] [place] [address] Hematology/Oncology 03/30/21 Kristina Pete, MAE Specialty Test Deck Supervisor HOSPICE & PALLIATIVE MEDICINE 05/22/21 Juan Francisco Hutchinson, AWS SOLUTION ARCHITECT.LEAD SYSTEMS DEVELOPER [address] [place] [address] Palliative Medicine Provider HOSPICE & PALLIATIVE MEDICINE 06/28/21 Kylie Mosher, RN Specialty Test Deck Supervisor HOSPICE & PALLIATIVE MEDICINE 09/27/21 Test Technician Relationship Specialty Start Date End Date Jose Vail MD PCP - General Internal Medicine 05/07/16 [place] [address] [place] [address] Consulting Hematology/Oncology 01/28/12 Marilyn Hughes, RN [phone] [place] [address] Specialty Test Deck Supervisor Hematology/Oncology 11/09/19 [place] [address] [place] [address] Hematology/Oncology 03/30/21 Kristina Pete, MAE Specialty Test Deck Supervisor HOSPICE & PALLIATIVE MEDICINE 05/22/21 Juan Francisco Hutchinson, AWS SOLUTION ARCHITECT.LEAD SYSTEMS DEVELOPER [address] [place] [address] Palliative Medicine Provider HOSPICE & PALLIATIVE MEDICINE 06/28/21 Kylie Mosher, RN Specialty Test Deck Supervisor HOSPICE & PALLIATIVE MEDICINE 09/27/21 Test Technician Relationship Specialty Start Date End Date Jose Vail MD PCP - General Internal Medicine 05/07/16 [place] [address] [place] [address] Consulting Hematology/Oncology 01/28/12 Marilyn Hughes, MAE [id number] [place] [address] Specialty Test Deck Supervisor Hematology/Oncology 11/09/19 [place] [address] [place] [address] Hematology/Oncology 03/30/21 Kristina Pete, RN Specialty Test Deck Supervisor HOSPICE & PALLIATIVE MEDICINE 05/22/21 Juan Francisco Hutchinson, AWS SOLUTION ARCHITECT.LEAD SYSTEMS DEVELOPER [address] [place] [address] Palliative Medicine Provider HOSPICE & PALLIATIVE MEDICINE 06/28/21 Kylie Mosher, RN Specialty Test Deck Supervisor HOSPICE & PALLIATIVE MEDICINE 09/27/21 Test Technician Relationship Specialty Start Date End Date Jose Vail MD PCP - General Internal Medicine 05/07/16 [place] [address] [place] [address] Consulting Hematology/Oncology 01/28/12 Marilyn Hughes, MAE [address] [place] [address] Specialty Test Deck Supervisor Hematology/Oncology 11/09/19 [place] [address] [place] [address] Hematology/Oncology 03/30/21 Kristina Pete, RN Specialty Test Deck Supervisor HOSPICE & PALLIATIVE MEDICINE 05/22/21 Juan Francisco Hutchinson, AWS SOLUTION ARCHITECT.LEAD SYSTEMS DEVELOPER [address] [place] [address] Palliative Medicine Provider HOSPICE & PALLIATIVE MEDICINE 06/28/21 Kylie Mosher, RN Specialty Test Deck Supervisor HOSPICE & PALLIATIVE MEDICINE 09/27/21 Test Technician Relationship Specialty Start Date End Date Jose Vail MD PCP - General Internal Medicine 05/07/16 [place] [address] [place] [address] Consulting Hematology/Oncology 01/28/12 [place] [address] [place] [address] Specialty Test Deck Supervisor Hematology/Oncology 11/09/19 [place] [address] [place] [address] Hematology/Oncology 03/30/21 Kristina Pete, MAE Specialty Test Deck Supervisor HOSPICE & PALLIATIVE MEDICINE 05/22/21 Juan Francisco Hutchinson, AWS SOLUTION ARCHITECT.LEAD SYSTEMS DEVELOPER [address] [place] [address] Palliative Medicine Provider HOSPICE & PALLIATIVE MEDICINE 06/28/21 Kylie Mosher RN Specialty Test Deck Supervisor HOSPICE & PALLIATIVE MEDICINE 09/27/21 Test Technician Relationship Specialty Start Date End Date Jose Vail MD PCP - General Internal Medicine 05/07/16 [place] [address] [place] [address] Consulting Hematology/Oncology 01/28/12 [place] [address] [place] [address] Specialty Test Deck Supervisor Hematology/Oncology 11/09/19 [place] [address] [place] [address] Hematology/Oncology 03/30/21 Kristina Peet, MAE Specialty Test Deck Supervisor HOSPICE & PALLIATIVE MEDICINE 05/22/21 Juan Francisco Hutchinson, AWS SOLUTION ARCHITECT.LEAD SYSTEMS DEVELOPER [address] [place] [address] Palliative Medicine Provider HOSPICE & PALLIATIVE MEDICINE 06/28/21 Kylie Mosher RN Specialty Test Deck Supervisor HOSPICE & PALLIATIVE MEDICINE 09/27/21 Test Technician Relationship Specialty Start Date End Date Jose Vail MD PCP - General Internal Medicine 05/07/16 [place] [address] [place] [address] Consulting Hematology/Oncology 01/28/12 Marilyn Hughes, MAE [phone] [place] [address] Specialty Test Deck Supervisor Hematology/Oncology 11/09/19 [place] [address] [place] [address] Hematology/Oncology 03/30/21 Kristina Pete, MAE Specialty Test Deck Supervisor HOSPICE & PALLIATIVE MEDICINE 05/22/21 Juan Francisco Hutchinson, AWS SOLUTION ARCHITECT.[facility] [address] [place] [address] Palliative Medicine Provider HOSPICE & PALLIATIVE MEDICINE 06/28/21 Kylie Mosher RN Specialty Test Deck Supervisor HOSPICE & PALLIATIVE MEDICINE 09/27/21 Test Technician Relationship Specialty Start Date End Date Jose Vail MD PCP - General Internal Medicine 05/07/16 [place] [address] [place] [address] Consulting Hematology/Oncology 01/28/12 Marilyn Hughes RN [phone] [place] [address] Specialty Test Deck Supervisor Hematology/Oncology 11/09/19 [place] [address] [place] [address] Hematology/Oncology 03/30/21 Kristina Pete, RN Specialty Test Deck Supervisor HOSPICE & PALLIATIVE MEDICINE 05/22/21 Juan Francisco Hutchinson, AWS SOLUTION ARCHITECT.LEAD SYSTEMS DEVELOPER [address] [place] [address] Palliative Medicine Provider HOSPICE & PALLIATIVE MEDICINE 06/28/21 Kylie Msoher, RN Specialty Test Deck Supervisor HOSPICE & PALLIATIVE MEDICINE 09/27/21 Test Technician Relationship Specialty [place] [address] [place] [address] PCP - General Internal Medicine 05/07/16 [place] [address] [place] [address] Consulting Hematology/Oncology 01/28/12 Mar[place], MAE [address] [place] [address] Specialty Test Deck Supervisor Hematology/Oncology 11/09/19 [place] [address] [place] [address] Hematology/Oncology 03/30/21 Kristina Pete, MAE Specialty Test Deck Supervisor HOSPICE & PALLIATIVE MEDICINE 05/22/21 Juan Francisco Hutchinson, AWS SOLUTION ARCHITECT.LEAD SYSTEMS DEVELOPER [address] [place] [address] Palliative Medicine Provider HOSPICE & PALLIATIVE MEDICINE 06/28/21 Kylie Mosher, RN Specialty Test Deck Supervisor HOSPICE & PALLIATIVE MEDICINE 09/27/21 Test Technician Relationship Specialty [place] [address] [place] [address] PCP - General Internal Medicine 05/07/16 [place] [address] [place] [address] Consulting Hematology/Oncology 01/28/12 Marilyn Hughes, MAE [address] [place] [address] Specialty Test Deck Supervisor Hematology/Oncology 11/09/19 [place] [address] [place] [address] Hematology/Oncology 03/30/21 Kristina Pete, RN Specialty Test Deck Supervisor HOSPICE & PALLIATIVE MEDICINE 05/22/21 Juan Francisco Hutchinson, AWS SOLUTION ARCHITECT.LEAD SYSTEMS DEVELOPER [address] [place] [address] Palliative Medicine Provider HOSPICE & PALLIATIVE MEDICINE 06/28/21 Kylie Mosher, RN Specialty Test Deck Supervisor HOSPICE & PALLIATIVE MEDICINE 09/27/21 Test Technician Relationship Specialty [place] [address] [place] [address] PCP - General Internal Medicine 05/07/16 [place] [address] [place] [address] Consulting Hematology/Oncology 01/28/12 [place]E [address] [place] [address] Specialty Test Deck Supervisor Hematology/Oncology 11/09/19 [place] [address] [place] [address] Hematology/Oncology 03/30/21 Kristina Pete, MAE Specialty Test Deck Supervisor HOSPICE & PALLIATIVE MEDICINE 05/22/21 Juan Francisco Hutchinson, AWS SOLUTION ARCHITECT.LEAD SYSTEMS DEVELOPER [address] [place] [address] Palliative Medicine Provider HOSPICE & PALLIATIVE MEDICINE 06/28/21 Kylie Mosher RN Specialty Test Deck Supervisor HOSPICE & PALLIATIVE MEDICINE 09/27/21 Test Technician Relationship Specialty [place] [address] [place] [address] PCP - General Internal Medicine 05/07/16 Cyn Ramires MD [id number] [place] [address] Consulting Hematology/Oncology 01/28/12 Marilyn Hughes, RN [phone] [place] [address] Specialty Test Deck Supervisor Hematology/Oncology 11/09/19 [place] [address] [place] [address] Hematology/Oncology 03/30/21 Kristina Pete, RN Specialty Test Deck Supervisor HOSPICE & PALLIATIVE MEDICINE 05/22/21 Juan Francisco Hutchinson, AWS SOLUTION ARCHITECT.LEAD SYSTEMS DEVELOPER [address] [place] [address] Palliative Medicine Provider HOSPICE & PALLIATIVE MEDICINE 06/28/21 Kylie Mosher, RN Specialty Test Deck Supervisor HOSPICE & PALLIATIVE MEDICINE 09/27/21 Test Technician Relationship Specialty Start Date End Date Jose Vail MD [id number] [place] [address] PCP - General Internal Medicine 05/07/16 [place] [address] [place] [address] Consulting Hematology/Oncology 01/28/12 Marilyn Hughes, MAE [phone] [place] [address] Specialty Test Deck Supervisor Hematology/Oncology 11/09/19 Cyn Ramires MD [id number] [place] [address] Hematology/Oncology 03/30/21 Kristina Pete, MAE Specialty Test Deck Supervisor HOSPICE & PALLIATIVE MEDICINE 05/22/21 Juan Francisco Hutchinson, AWS SOLUTION ARCHITECT.LEAD SYSTEMS DEVELOPER [address] [place] [address] Palliative Medicine Provider HOSPICE & PALLIATIVE MEDICINE 06/28/21 Kylie Mosher, RN Specialty Test Deck Supervisor HOSPICE & PALLIATIVE MEDICINE 09/27/21 Test Technician Relationship Specialty [place] [address] [place] [address] PCP - General Internal Medicine 05/07/16 [place] [address] [place] [address] Consulting Hematology/Oncology 01/28/12 [place] [address] [place] [address] Specialty Test Deck Supervisor Hematology/Oncology 11/09/19 [place] [address] [place] [address] Hematology/Oncology 03/30/21 Kristina Pete, MAE Specialty Test Deck Supervisor HOSPICE & PALLIATIVE MEDICINE 05/22/21 Juan Francisco Hutchinson, AWS SOLUTION ARCHITECT.LEAD SYSTEMS DEVELOPER [address] [place] [address] Palliative Medicine Provider HOSPICE & PALLIATIVE MEDICINE 06/28/21 Kylie Mosher, RN Specialty Test Deck Supervisor HOSPICE & PALLIATIVE MEDICINE 09/27/21 Test Technician Relationship Specialty [place] [address] [place] [address] PCP - General Internal Medicine 05/07/16 [place] [address] [place] [address] Consulting Hematology/Oncology 01/28/12 Mar[place], [place]E [address] [place] [address] Specialty Test Deck Supervisor Hematology/Oncology 11/09/19 [place] [address] [place] [address] Hematology/Oncology 03/30/21 Kristina Pete, MAE Specialty Test Deck Supervisor HOSPICE & PALLIATIVE MEDICINE 05/22/21 Juan Francisco Hutchinson, AWS SOLUTION ARCHITECT.LEAD SYSTEMS DEVELOPER [address] [place] [address] Palliative Medicine Provider HOSPICE & PALLIATIVE MEDICINE 06/28/21 Kylie Mosher RN Specialty Test Deck Supervisor HOSPICE & PALLIATIVE MEDICINE 09/27/21 Test Technician Relationship Specialty [place] [address] [place] [address] PCP - General Internal Medicine 05/07/16 [place] [address] [place] [address] Consulting Hematology/Oncology 01/28/12 [place] [address] [place] [address] Specialty Test Deck Supervisor Hematology/Oncology 11/09/19 [place] [address] [place] [address] Hematology/Oncology 03/30/21 Kristina Pete, MAE Specialty Test Deck Supervisor HOSPICE & PALLIATIVE MEDICINE 05/22/21 Juan Francisco Hutchinson, AWS SOLUTION ARCHITECT.LEAD SYSTEMS DEVELOPER [address] [place] [address] Palliative Medicine Provider HOSPICE & PALLIATIVE MEDICINE 06/28/21 Kylie Mosher RN Specialty Test Deck Supervisor HOSPICE & PALLIATIVE MEDICINE 09/27/21 Test Technician Relationship Specialty Start Date [place] [address] PCP - General Internal Medicine 05/07/16 [place] [address] [place] [address] Consulting Hematology/Oncology 01/28/12 Marilyn Hughes, RN [id number] [place] [address] Specialty Test Deck Supervisor Hematology/Oncology 11/09/19 Cyn Ramires MD [id number] [place] [address] Hematology/Oncology 03/30/21 Kristina Pete, MAE Specialty Test Deck Supervisor HOSPICE & PALLIATIVE MEDICINE 05/22/21 Juan Francisco Hutchinson, AWS SOLUTION ARCHITECT.LEAD SYSTEMS DEVELOPER [address] [place] [address] Palliative Medicine Provider HOSPICE & PALLIATIVE MEDICINE 06/28/21 Kylie Mosher, RN Specialty Test Deck Supervisor HOSPICE & PALLIATIVE MEDICINE 09/27/21 Test Technician Relationship Specialty Start Date End Date Jose Vail MD [id number] [place] [address] PCP - General Internal Medicine 05/07/16 [place] [address] [place] [address] Consulting Hematology/Oncology 01/28/12 Marilyn Hughes, MAE [id number] [place] [address] Specialty Test Deck Supervisor Hematology/Oncology 11/09/19 Cyn Ramires MD [id number] [place] [address] Hematology/Oncology 03/30/21 Kristina Pete, RN Specialty Test Deck Supervisor HOSPICE & PALLIATIVE MEDICINE 05/22/21 Juan Francisco Hutchinson, AWS SOLUTION ARCHITECT.LEAD SYSTEMS DEVELOPER [address] [place] [address] Palliative Medicine Provider HOSPICE & PALLIATIVE MEDICINE 06/28/21 Kylie Mosher, RN Specialty Test Deck Supervisor HOSPICE & PALLIATIVE MEDICINE 09/27/21 Test Technician Relationship Specialty [place] [address] [place] [address] PCP - General Internal Medicine 05/07/16 [place] [address] [place] [address] Consulting Hematology/Oncology 01/28/12 Marilyn Hughes, MAE [address] [place] [address] Specialty Test Deck Supervisor Hematology/Oncology 11/09/19 [place] [address] [place] [address] Hematology/Oncology 03/30/21 Kristina Pete, RN Specialty Test Deck Supervisor HOSPICE & PALLIATIVE MEDICINE 05/22/21 Juan Francisco Hutchinson, AWS SOLUTION ARCHITECT.LEAD SYSTEMS DEVELOPER [address] [place] [address] Palliative Medicine Provider HOSPICE & PALLIATIVE MEDICINE 06/28/21 Kylie Mosher, RN Specialty Test Deck Supervisor HOSPICE & PALLIATIVE MEDICINE 09/27/21 Test Technician Relationship Specialty [place] [address] [place] [address] PCP - General Internal Medicine 05/07/16 [place] [address] [place] [address] Consulting Hematology/Oncology 01/28/12 [place] [address] [place] [address] Specialty Test Deck Supervisor Hematology/Oncology 11/09/19 [place] [address] [place] [address] Hematology/Oncology 03/30/21 Kristina Pete, RN Specialty Test Deck Supervisor HOSPICE & PALLIATIVE MEDICINE 05/22/21 Juan Francisco Hutchinson, AWS SOLUTION ARCHITECT.LEAD SYSTEMS DEVELOPER [address] [place] [address] Palliative Medicine Provider HOSPICE & PALLIATIVE MEDICINE 06/28/21 Kylie Mosher RN Specialty Test Deck Supervisor HOSPICE & PALLIATIVE MEDICINE 09/27/21 Test Technician Relationship Specialty [place] [address] [place] [address] PCP - General Internal Medicine 05/07/16 [place] [address] [place] [address] Consulting Hematology/Oncology 01/28/12 [place] [address] [place] [address] Specialty Test Deck Supervisor Hematology/Oncology 11/09/19 [place] [address] [place] [address] Hematology/Oncology 03/30/21 Kristina Pete, RN Specialty Test Deck Supervisor HOSPICE & PALLIATIVE MEDICINE 05/22/21 Juan Francisco Hutchinson, AWS SOLUTION ARCHITECT.LEAD SYSTEMS DEVELOPER [address] [facility] [place] [address] Palliative Medicine Provider HOSPICE & PALLIATIVE MEDICINE 06/28/21 Kylie Mosher, RN Specialty Test Deck Supervisor HOSPICE & PALLIATIVE MEDICINE 09/27/21 Test Technician Relationship Specialty Start Date End [place] [address] PCP - General Internal Medicine 05/07/16 [place] [address] Consulting Hematology/Oncology 01/28/12 Marilyn Hughes, RN [id number] [place] [address] Specialty Test Deck Supervisor Hematology/Oncology 11/09/19 [place] [address] [place] [address] Hematology/Oncology 03/30/21 Kristina Pete, MAE Specialty Test Deck Supervisor HOSPICE & PALLIATIVE MEDICINE 05/22/21 Juan Francisco Hutchinson, AWS SOLUTION ARCHITECT.LEAD SYSTEMS DEVELOPER [address] [place] [address] Palliative Medicine Provider HOSPICE & PALLIATIVE MEDICINE 06/28/21 Kylie Mosher, RN Specialty Test Deck Supervisor HOSPICE & PALLIATIVE MEDICINE 09/27/21 Test Technician Relationship Specialty Start Date End [place] [address] PCP - General Internal Medicine 05/07/16 [place] [address] [place] [address] Consulting Hematology/Oncology 01/28/12 Marilyn Hughes, RN [id number] [place] [address] Specialty Test Deck Supervisor Hematology/Oncology 11/09/19 [place] [address] [place] [address] Hematology/Oncology 03/30/21 Kristina Pete, RN Specialty Test Deck Supervisor HOSPICE & PALLIATIVE MEDICINE 05/22/21 Juan Francisco Hutchinson, AWS SOLUTION ARCHITECT.LEAD SYSTEMS DEVELOPER [address] [place] [address] Palliative Medicine Provider HOSPICE & PALLIATIVE MEDICINE 06/28/21 Kylie Mosher, RN Specialty Test Deck Supervisor HOSPICE & PALLIATIVE MEDICINE 09/27/21 Test Technician Relationship Specialty [place] [address] [place] [address] PCP - General Internal Medicine 05/07/16 [place] [address] [place] [address] Consulting Hematology/Oncology 01/28/12 Marilyn Hughes[place] MAE [address] [place] [address] Specialty Test Deck Supervisor Hematology/Oncology 11/09/19 [place] [address] [place] [address] Hematology/Oncology 03/30/21 Kristina Pete, RN Specialty Test Deck Supervisor HOSPICE & PALLIATIVE MEDICINE 05/22/21 Juan Francisco Hutchinson, AWS SOLUTION ARCHITECT.LEAD SYSTEMS DEVELOPER [address] [place] [address] Palliative Medicine Provider HOSPICE & PALLIATIVE MEDICINE 06/28/21 Kylie Mosher, RN Specialty Test Deck Supervisor HOSPICE & PALLIATIVE MEDICINE 09/27/21 Test Technician Relationship Specialty [place] [address] [place] [address] PCP - General Internal Medicine 05/07/16 [place] [address] [place] [address] Consulting Hematology/Oncology 01/28/12 Marilyn Hughes, MAE [address] [place] [address] Specialty Test Deck Supervisor Hematology/Oncology 11/09/19 [place] [address] [place] [address] Hematology/Oncology 03/30/21 Kristina Pete, MAE Specialty Test Deck Supervisor HOSPICE & PALLIATIVE MEDICINE 05/22/21 Juan Francisco Hutchinson, AWS SOLUTION ARCHITECT.LEAD SYSTEMS DEVELOPER [address] [place] [address] Palliative Medicine Provider HOSPICE & PALLIATIVE MEDICINE 06/28/21 Kylie Mosher RN Specialty Test Deck Supervisor HOSPICE & PALLIATIVE MEDICINE 09/27/21 Test Technician Relationship Specialty [place] [address] [place] [address] PCP - General Internal Medicine 05/07/16 [place] [address] [place] [address] Consulting Hematology/Oncology 01/28/12 [place] [address] [place] [address] Hematology/Oncology 03/30/21 Kristina Pete, MAE Specialty Test Deck Supervisor HOSPICE & PALLIATIVE MEDICINE 05/22/21 Juan Francisco Hutchinson, AWS SOLUTION ARCHITECT.LEAD SYSTEMS DEVELOPER [address] [place] [address] Palliative Medicine Provider HOSPICE & PALLIATIVE MEDICINE 06/28/21 Kylie Mosher RN Specialty Test Deck Supervisor HOSPICE & PALLIATIVE MEDICINE 09/27/21 Test Technician Relationship Specialty Start Date [place] [address] PCP - General Internal Medicine 05/07/16 [place] [address] Consulting Hematology/Oncology 01/28/12 [place] [address] Hematology/Oncology 03/30/21 Kristina Pete, MAE Specialty Test Deck Supervisor HOSPICE & PALLIATIVE MEDICINE 05/22/21 Juan Francisco Hutchinson, AWS SOLUTION ARCHITECT.LEAD SYSTEMS DEVELOPER [address] [place] [address] Palliative Medicine Provider HOSPICE & PALLIATIVE MEDICINE 06/28/21 Kylie Mosher RN Specialty Test Deck Supervisor HOSPICE & PALLIATIVE MEDICINE 09/27/21 Test Technician Relationship Specialty Start Date End [place] [address] PCP - General Internal Medicine 05/07/16 [place] [address] Consulting Hematology/Oncology 01/28/12 [place] [address] Hematology/Oncology 03/30/21 Kristina Pete, MAE Specialty Test Deck Supervisor HOSPICE & PALLIATIVE MEDICINE 05/22/21 Juan Francisco Hutchinson, AWS SOLUTION ARCHITECT.LEAD SYSTEMS DEVELOPER [address] [place] [address] Palliative Medicine Provider HOSPICE & PALLIATIVE MEDICINE 06/28/21 Kylie Mosher RN Specialty Test Deck Supervisor HOSPICE & PALLIATIVE MEDICINE 09/27/21 Test Technician Relationship Specialty Start Date End [place] [address] PCP - General Internal Medicine 05/07/16 [place] [address] [place] [address] Consulting Hematology/Oncology 01/28/12 [place] [address] Hematology/Oncology 03/30/21 Kristina Pete, MAE Specialty Test Deck Supervisor HOSPICE & PALLIATIVE MEDICINE 05/22/21 Juan Francisco Hutchinson, AWS SOLUTION ARCHITECT.LEAD SYSTEMS DEVELOPER [address] [place] [address] Palliative Medicine Provider HOSPICE & PALLIATIVE MEDICINE 06/28/21 Kylie Mosher RN Specialty Test Deck Supervisor HOSPICE & PALLIATIVE MEDICINE 09/27/21 Test Technician Relationship Specialty Start Date End [place] [address] PCP - General Internal Medicine 05/07/16 [place] [address] Consulting Hematology/Oncology 01/28/12 [place] [address] [place] [address] Hematology/Oncology 03/30/21 Kristina Pete, MAE Specialty Test Deck Supervisor HOSPICE & PALLIATIVE MEDICINE 05/22/21 Juan Francisco Hutchinson, AWS SOLUTION ARCHITECT.LEAD SYSTEMS DEVELOPER [address] [place] [address] Palliative Medicine Provider HOSPICE & PALLIATIVE MEDICINE 06/28/21 Kylie Mosher RN Specialty Test Deck Supervisor HOSPICE & PALLIATIVE MEDICINE 09/27/21 Test Technician Relationship Specialty Start Date End [place] [address] PCP - General Internal Medicine 05/07/16 [place] [address] [place] [address] Consulting Hematology/Oncology 01/28/12 [place] [address] Hematology/Oncology 03/30/21 Kristina Pete, MAE Specialty Test Deck Supervisor HOSPICE & PALLIATIVE MEDICINE 05/22/21 Juan Francisco Hutchinson, AWS SOLUTION ARCHITECT.LEAD SYSTEMS DEVELOPER [address] [place] [address] Palliative Medicine Provider HOSPICE & PALLIATIVE MEDICINE 06/28/21 Kylie Mosher, RN Specialty Test Deck Supervisor HOSPICE & PALLIATIVE MEDICINE 09/27/21 Test Technician Relationship Specialty Start Date End [place] [address] PCP - General Internal Medicine 05/07/16 [place] [address] Consulting Hematology/Oncology 01/28/12 [place] [address] [place] [address] Hematology/Oncology 03/30/21 Kristina Pete, MAE Specialty Test Deck Supervisor HOSPICE & PALLIATIVE MEDICINE 05/22/21 Juan Francisco Hutchinson, AWS SOLUTION ARCHITECT.LEAD SYSTEMS DEVELOPER [address] [place] [address] Palliative Medicine Provider HOSPICE & PALLIATIVE MEDICINE 06/28/21 Kylie Mosher, RN Specialty Test Deck Supervisor HOSPICE & PALLIATIVE MEDICINE 09/27/21 Test Technician Relationship Specialty Start Date End [place] [address] PCP - General Internal Medicine 05/07/16 [place] [address] [place] [address] Consulting Hematology/Oncology 01/28/12 [place] [address] [place] [address] Hematology/Oncology 03/30/21 Kristina Pete, MAE Specialty Test Deck Supervisor HOSPICE & PALLIATIVE MEDICINE 05/22/21 Juan Francisco Hutchinson, AWS SOLUTION ARCHITECT.LEAD SYSTEMS DEVELOPER [address] [place] [address] Palliative Medicine Provider HOSPICE & PALLIATIVE MEDICINE 06/28/21 Kylie Mosher RN Specialty Test Deck Supervisor HOSPICE & PALLIATIVE MEDICINE 09/27/21 Test Technician Relationship Specialty Start Date End [place] [address] PCP - General Internal Medicine 05/07/16 [place] [address] [place] [address] Consulting Hematology/Oncology 01/28/12 [place] [address] [place] [address] Hematology/Oncology 03/30/21 Kristina Pete, MAE Specialty Test Deck Supervisor HOSPICE & PALLIATIVE MEDICINE 05/22/21 Juan Francisco Hutchinson, AWS SOLUTION ARCHITECT.LEAD SYSTEMS DEVELOPER [address] [place] [address] Palliative Medicine Provider HOSPICE & PALLIATIVE MEDICINE 06/28/21 Nomi, Kylie L, RN Specialty Test Deck Supervisor HOSPICE & PALLIATIVE MEDICINE 09/27/21 Test Technician Relationship Specialty Start Date [place] [address] PCP - General Internal Medicine 05/07/16 [place] [address] [place] [address] Consulting Hematology/Oncology 01/28/12 [place] [address] [place] [address] Hematology/Oncology 03/30/21 Kristina Pete, MAE Specialty Test Deck Supervisor HOSPICE & PALLIATIVE MEDICINE 05/22/21 Juan Francisco Hutchinson, AWS SOLUTION ARCHITECT.LEAD SYSTEMS DEVELOPER [address] [place] [address] Palliative Medicine Provider HOSPICE & PALLIATIVE MEDICINE 06/28/21 Kylie Mosher RN Specialty Test Deck Supervisor HOSPICE & PALLIATIVE MEDICINE 09/27/21 Test Technician Relationship Specialty Start Date End [place] [address] PCP - General Internal Medicine 05/07/16 [place] [address] [place] [address] Consulting Hematology/Oncology 01/28/12 [place] [address] [place] [address] Hematology/Oncology 03/30/21 Kristina Pete, MAE Specialty Test Deck Supervisor HOSPICE & PALLIATIVE MEDICINE 05/22/21 Juan Francisco Hutchinson, AWS SOLUTION ARCHITECT.LEAD SYSTEMS DEVELOPER [address] [place] [address] Palliative Medicine Provider HOSPICE & PALLIATIVE MEDICINE 06/28/21 Kylie Mosher, RN Specialty Test Deck Supervisor HOSPICE & PALLIATIVE MEDICINE 09/27/21 Test Technician Relationship Specialty Start Date End Date Jose Vail MD [facility] [place] [address] PCP - General Internal Medicine 05/07/[address] [place] [address] [place] [address] Consulting Hematology/Oncology 01/28/[address] [place] [address] [place] [address] Hematology/Oncology 03/30/21 Kristina Pete, RN Specialty Test Deck Supervisor HOSPICE & PALLIATIVE MEDICINE 05/22/21 Juan Francisco Hutchinson, AWS SOLUTION ARCHITECT.LEAD SYSTEMS DEVELOPER [address] [place] [address] Palliative Medicine Provider HOSPICE & PALLIATIVE MEDICINE 06/28/21 Kylie Mosher, RN Specialty Test Deck Supervisor HOSPICE & PALLIATIVE MEDICINE 09/27/21 Test Technician Relationship Specialty Start Date End Date Jose Vail MD [facility] [place] [address] PCP - General Internal Medicine 05/07/16 [place] [address] [place] [address] Consulting Hematology/Oncology 01/28/12 [place] [address] [place] [address] Hematology/Oncology 03/30/21 Kristina Pete, RN Specialty Test Deck Supervisor HOSPICE & PALLIATIVE MEDICINE 05/22/21 Juan Francisco Hutchinson, AWS SOLUTION ARCHITECT.LEAD SYSTEMS DEVELOPER [address] [facility] [place] [address] Palliative Medicine Provider HOSPICE & PALLIATIVE MEDICINE 06/28/21 Kylie Mosher, RN Specialty Test Deck Supervisor HOSPICE & PALLIATIVE MEDICINE 09/27/21 Test Technician Relationship Specialty Start Date End Date Jose Vail MD [facility] [place] [address] PCP - General Internal Medicine 05/07/[address] [place] [address] [place] [address] Consulting Hematology/Oncology 01/28/12 [place] [address] Hematology/Oncology 03/30/21 Kristina Pete, RN Specialty Test Deck Supervisor HOSPICE & PALLIATIVE MEDICINE 05/22/21 Juan Francisco Hutchinson, AWS SOLUTION ARCHITECT.LEAD SYSTEMS DEVELOPER [address] [place] [address] Palliative Medicine Provider HOSPICE & PALLIATIVE MEDICINE 06/28/21 Kylie Mosher, RN Specialty Test Deck Supervisor HOSPICE & PALLIATIVE MEDICINE 09/27/21 Test Technician Relationship Specialty [place] [address] [place] [address] PCP - General Internal Medicine 05/07/16 [place] [address] [place] [address] Consulting Hematology/Oncology 01/28/12 [place] [address] [place] [address] Hematology/Oncology 03/30/21 Kristina Pete, MAE Specialty Test Deck Supervisor HOSPICE & PALLIATIVE MEDICINE 05/22/21 Juan Francisco Hutchinson, AWS SOLUTION ARCHITECT.LEAD SYSTEMS DEVELOPER [address] [place] [address] Palliative Medicine Provider HOSPICE & PALLIATIVE MEDICINE 06/28/21 Kylie Mosher, RN Specialty Test Deck Supervisor HOSPICE & PALLIATIVE MEDICINE 09/27/21 Test Technician Relationship Specialty [place] [address] [facility] [address] PCP - General Internal Medicine 05/07/16 [place] [address] Consulting Hematology/Oncology 01/28/12 [place] [address] Hematology/Oncology 03/30/21 Kristina Pete, MAE Specialty Test Deck Supervisor HOSPICE & PALLIATIVE MEDICINE 05/22/21 Juan Francisco Hutchinson, AWS SOLUTION ARCHITECT.LEAD SYSTEMS DEVELOPER [address] [facility] [place] [address] Palliative Medicine Provider HOSPICE & PALLIATIVE MEDICINE 06/28/21 Kylie Mosher, RN Specialty Test Deck Supervisor HOSPICE & PALLIATIVE MEDICINE 09/27/21 Test Technician Relationship Specialty Start Date [place] [address] PCP - General Internal Medicine 05/07/16 [place] [address] [place] [address] Consulting Hematology/Oncology 01/28/12 [place] [address] [place] [address] Hematology/Oncology 03/30/21 Juan Francisco Hutchinson, AWS SOLUTION ARCHITECT.LEAD SYSTEMS DEVELOPER [address] [place] [address] Palliative Medicine Provider HOSPICE & PALLIATIVE MEDICINE 06/28/21 Kylie Mosher, RN Specialty Test Deck Supervisor HOSPICE & PALLIATIVE MEDICINE 09/27/21 Test Technician Relationship Specialty [place] [address] [place] [address] PCP - General Internal Medicine 05/07/16 [place] [address] [place] [address] Consulting Hematology/Oncology 01/28/12 [place] [address] Hematology/Oncology 03/30/21 Juan Francisco Hutchinson, AWS SOLUTION ARCHITECT.LEAD SYSTEMS DEVELOPER [address] [place] [address] Palliative Medicine Provider HOSPICE & PALLIATIVE MEDICINE 06/28/21 Kylie Mosher RN Specialty Test Deck Supervisor HOSPICE & PALLIATIVE MEDICINE 09/27/21 Test Technician Relationship Specialty Start Date [place] [address] PCP - General Internal Medicine 05/07/16 [place] [address] [place] [address] Consulting Hematology/Oncology 01/28/12 [place] [address] [place] [address] Hematology/Oncology 03/30/21 Juan Francisco Hutchinson, AWS SOLUTION ARCHITECT.LEAD SYSTEMS DEVELOPER [address] [place] [address] Palliative Medicine Provider HOSPICE & PALLIATIVE MEDICINE 06/28/21 Kylie Mosher RN Specialty Test Deck Supervisor HOSPICE & PALLIATIVE MEDICINE 09/27/21 Test Technician Relationship Specialty Start Date End [place] [address] PCP - General Internal Medicine 05/07/16 [place] [address] [place] [address] Consulting Hematology/Oncology 01/28/12 [place] [address] [place] [address] Hematology/Oncology 03/30/21 Juan Francisco Hutchinson, AWS SOLUTION ARCHITECT.LEAD SYSTEMS DEVELOPER [address] [place] [address] Palliative Medicine Provider HOSPICE & PALLIATIVE MEDICINE 06/28/21 Kylie Mosher, RN Specialty Test Deck Supervisor HOSPICE & PALLIATIVE MEDICINE 09/27/21 Test Technician Relationship Specialty [place] [address] [facility] [place] [address] PCP - General Internal Medicine 05/07/[address] [place] [address] [facility] [address] Consulting Hematology/Oncology 01/28/[address] [place] [address] [facility] [address] Hematology/Oncology 03/30/21 Juan Francisco Hutchinson, AWS SOLUTION ARCHITECT.LEAD SYSTEMS DEVELOPER [address] [facility] [place] [address] Palliative Medicine Provider HOSPICE & PALLIATIVE MEDICINE 06/28/21 Kylie Mosher RN Specialty Test Deck Supervisor HOSPICE & PALLIATIVE MEDICINE 09/27/21 Test Technician Relationship Specialty [place] [address] [place] [address] PCP - General Internal Medicine 05/07/16 [place] [address] [place] [address] Consulting Hematology/Oncology 01/28/12 [place] [address] [place] [address] Hematology/Oncology 03/30/21 Juan Francisco Hutchinson, LORY.LEAD SYSTEMS DEVELOPER [address] [place] [id number] Palliative Medicine Provider HOSPICE & PALLIATIVE MEDICINE 06/28/21 Kylie Mosher RN Specialty Test Deck Supervisor HOSPICE & PALLIATIVE MEDICINE 09/27/21 Test Technician Relationship Specialty [place] [address] [place] [address] PCP - General Internal Medicine 05/07/16 [place] [address] [place] [address] Consulting Hematology/Oncology 01/28/12 [place] [address] [place] [address] Hematology/Oncology 03/30/21 Juan Francisco Hutchinson, LORY.LEAD SYSTEMS DEVELOPER [address] [place] [address] Palliative Medicine Provider HOSPICE & PALLIATIVE MEDICINE 06/28/21 Kylie Mosher RN Specialty Test Deck Supervisor HOSPICE & PALLIATIVE MEDICINE 09/27/21 Test Technician Relationship Specialty Start Date End Date [place] [address] [place] [address] PCP - General Internal Medicine 05/07/16 [place] [address] [place] [address] Consulting Hematology/Oncology 01/28/12 [place] [address] [place] [address] Hematology/Oncology 03/30/21 Juan Francisco Hutchinson, AWS SOLUTION ARCHITECT.LEAD SYSTEMS DEVELOPER [address] [place] [address] Palliative Medicine Provider HOSPICE & PALLIATIVE MEDICINE 06/28/21 Kylie Mosher, RN Specialty Test Deck Supervisor HOSPICE & PALLIATIVE MEDICINE 09/27/21 Test Technician Relationship Specialty [place] [address] [place] [address] PCP - General Internal Medicine 05/07/16 [place] [address] [place] [address] Consulting Hematology/Oncology 01/28/[address] [place] [address] [facility] [place] [address] Hematology/Oncology 03/30/21 Juan Francisco Hutchinson, AWS SOLUTION ARCHITECT.LEAD SYSTEMS DEVELOPER [address] [place] [address] Palliative Medicine Provider HOSPICE & PALLIATIVE MEDICINE 06/28/21 Kylie Mosher, RN Specialty Test Deck Supervisor HOSPICE & PALLIATIVE MEDICINE 09/27/21 Test Technician Relationship Specialty [place] [address] [facility] [address] PCP - General Internal Medicine 05/07/[address] [place] [address] [facility] [address] Consulting Hematology/Oncology 01/28/[address] [place] [address] [facility] [place] [address] Hematology/Oncology 03/30/21 Kristina Pete RN Specialty Test Deck Supervisor HOSPICE & PALLIATIVE MEDICINE 05/22/21 08/06/22 Juan Francisco Hutchinson, AWS SOLUTION ARCHITECT.LEAD SYSTEMS DEVELOPER [address] [place] [address] Palliative Medicine Provider HOSPICE & PALLIATIVE MEDICINE 06/28/21 Kylie Mosher, MAE Specialty Test Deck Supervisor HOSPICE & PALLIATIVE MEDICINE 09/27/21 Test Technician Relationship Specialty [place] [address] [place] [address] PCP - General Internal Medicine 05/07/[address] [place] [address] [facility] [place] [address] Consulting Hematology/Oncology 01/28/[address] [place] [address] [facility] [address] Hematology/Oncology 03/30/21 Juan Francisco Hutchinson, AWS SOLUTION ARCHITECT.LEAD SYSTEMS DEVELOPER [address] [place] [id number] Palliative Medicine Provider HOSPICE & PALLIATIVE MEDICINE 06/28/21 Kylie Mosher, RN Specialty Test Deck Supervisor HOSPICE & PALLIATIVE MEDICINE 09/27/21 Test Technician Relationship Specialty [place] [address] [place] [address] PCP - General Internal Medicine 05/07/16 [place] [address] [place] [address] Consulting Hematology/Oncology 01/28/[address] [place] [address] [facility] [place] [address] Hematology/Oncology 03/30/21 Juan Francisco Hutchinson, AWS SOLUTION ARCHITECT.LEAD SYSTEMS DEVELOPER [address] [id number] Palliative Medicine Provider HOSPICE & PALLIATIVE MEDICINE 06/28/21 Kylie Mosher, RN Specialty Test Deck Supervisor HOSPICE & PALLIATIVE MEDICINE 09/27/21 Test Technician Relationship Specialty [place] [address] [place] [address] PCP - General Internal Medicine 05/07/16 [place] [address] [place] [address] Consulting Hematology/Oncology 01/28/12 [place] [address] [place] [address] Hematology/Oncology 03/30/21 Juan Francisco Hutchinson, AWS SOLUTION ARCHITECT.LEAD SYSTEMS DEVELOPER [address] [id number] Palliative Medicine Provider HOSPICE & PALLIATIVE MEDICINE 06/28/21 Kylie Mosher, RN Specialty Test Deck Supervisor HOSPICE & PALLIATIVE MEDICINE 09/27/21 Test Technician Relationship Specialty [place] [address] [place] [address] PCP - General Internal Medicine 05/07/16 [place] [address] [place] [address] Consulting Hematology/Oncology 01/28/12 [place] [address] [place] [address] Hematology/Oncology 03/30/21 Juan Francisco Hutchinson, AWS SOLUTION ARCHITECT.LEAD SYSTEMS DEVELOPER [address] [id number] Palliative Medicine Provider HOSPICE & PALLIATIVE MEDICINE 06/28/21 Kylie Mosher, RN Specialty Test Deck Supervisor HOSPICE & PALLIATIVE MEDICINE 09/27/21 Test Technician Relationship Specialty [place] [address] [place] [address] PCP - General Internal Medicine 05/07/16 [place] [address] [place] [address] Consulting Hematology/Oncology 01/28/12 [place] [address] [place] [address] Hematology/Oncology 03/30/21 Juan Francisco Hutchinson, AWS SOLUTION ARCHITECT.LEAD SYSTEMS DEVELOPER [address] [place] [address] Palliative Medicine Provider HOSPICE & PALLIATIVE MEDICINE 06/28/21 Kylie Mosher, RN Specialty Test Deck Supervisor HOSPICE & PALLIATIVE MEDICINE 09/27/21 Test Technician Relationship Specialty [place] [address] [facility] [place] [address] PCP - General Internal Medicine 05/07/[address] [place] [address] [facility] [address] Consulting Hematology/Oncology 01/28/[address] [place] [address] [facility] [address] Hematology/Oncology 03/30/21 Juan Francisco Hutchinson, AWS SOLUTION ARCHITECT.LEAD SYSTEMS DEVELOPER [address] [place] [address] Palliative Medicine Provider HOSPICE & PALLIATIVE MEDICINE 06/28/21 Kylie Mosher, RN Specialty Test Deck Supervisor HOSPICE & PALLIATIVE MEDICINE 09/27/21 Test Technician Relationship Specialty [place] [address] [facility] [address] PCP - General Internal Medicine 05/07/[address] [place] [address] [facility] [address] Consulting Hematology/Oncology 01/28/12 [place] [address] [place] [address] Hematology/Oncology 03/30/21 Juan Francisco Hutchinson, AWS SOLUTION ARCHITECT.LEAD SYSTEMS DEVELOPER [address] [place] [address] Palliative Medicine Provider HOSPICE & PALLIATIVE MEDICINE 06/28/21 Kylie Mosher, RN Specialty Test Deck Supervisor HOSPICE & PALLIATIVE MEDICINE 09/27/21 Test Technician Relationship Specialty [place] [address] [place] [address] PCP - General Internal Medicine 05/07/16 [place] [address] [place] [address] Consulting Hematology/Oncology 01/28/12 [place] [address] [place] [address] Hematology/Oncology 03/30/21 Juan Francisco Hutchinson, AWS SOLUTION ARCHITECT.LEAD SYSTEMS DEVELOPER [address] [place] [address] Palliative Medicine Provider HOSPICE & PALLIATIVE MEDICINE 06/28/21 Kylie Mosher, RN Specialty Test Deck Supervisor HOSPICE & PALLIATIVE MEDICINE 09/27/21 Test Technician Relationship Specialty [place] [address] [place] [address] PCP - General Internal Medicine 05/07/16 [place] [address] [place] [address] Consulting Hematology/Oncology 01/28/12 [place] [address] [place] [address] Hematology/Oncology 03/30/21 Juan Francisco Hutchinson, AWS SOLUTION ARCHITECT.LEAD SYSTEMS DEVELOPER [address] [id number] Palliative Medicine Provider HOSPICE & PALLIATIVE MEDICINE 06/28/21 Kylie Mosher RN Specialty Test Deck Supervisor HOSPICE & PALLIATIVE MEDICINE 09/27/21 Test Technician Relationship Specialty [place] [address] [facility] [address] PCP - General Internal Medicine 05/07/16 [place] [address] [place] [address] Consulting Hematology/Oncology 01/28/12 [place] [address] [place] [address] Hematology/Oncology 03/30/21 Juan Francisco Hutchinson, AWS SOLUTION ARCHITECT.LEAD SYSTEMS DEVELOPER [address] [place] [address] Palliative Medicine Provider HOSPICE & PALLIATIVE MEDICINE 06/28/21 Kylie Mosher, MAE Specialty Test Deck Supervisor HOSPICE & PALLIATIVE MEDICINE 09/27/21 Test Technician Relationship Specialty [place] [address] [facility] [place] [address] PCP - General Internal Medicine 05/07/16 [place] [address] [place] [address] Consulting Hematology/Oncology 01/28/[address] [place] [address] [facility] [place] [address] Hematology/Oncology 03/30/21 Juan Francisco Hutchinson, AWS SOLUTION ARCHITECT.LEAD SYSTEMS DEVELOPER [address] [place] [address] Palliative Medicine Provider HOSPICE & PALLIATIVE MEDICINE 06/28/21 Kylie Mosher, RN Specialty Test Deck Supervisor HOSPICE & PALLIATIVE MEDICINE 09/27/21 Test Technician Relationship Specialty [place] [address] [facility] [place] [address] PCP - General Internal Medicine 05/07/[address] [place] [address] [facility] [address] Consulting Hematology/Oncology 01/28/[address] [place] [address] [facility] [address] Hematology/Oncology 03/30/21 Juan Francisco Hutchinson, AWS SOLUTION ARCHITECT.LEAD SYSTEMS DEVELOPER [address] [place] [address] Palliative Medicine Provider HOSPICE & PALLIATIVE MEDICINE 06/28/21 Kylie Mosher RN Specialty Test Deck Supervisor HOSPICE & PALLIATIVE MEDICINE 09/27/21 Test Technician Relationship Specialty [place] [address] [facility] [place] [address] PCP - General Internal Medicine 05/07/16 [place] [address] [place] [address] Consulting Hematology/Oncology 01/28/12 [place] [address] [place] [address] Hematology/Oncology 03/30/21 Juan Francisco Hutchinson, AWS SOLUTION ARCHITECT.LEAD SYSTEMS DEVELOPER [address] [place] [address] Palliative Medicine Provider HOSPICE & PALLIATIVE MEDICINE 06/28/21 Kylie Mosher, RN Specialty Test Deck Supervisor HOSPICE & PALLIATIVE MEDICINE 09/27/21 Team Status: Active Member Role Status Dates Jose Vail MD Primary Care Provider Active Team Status: Inactive Member Role Status Dates Jose Vail MD Primary Care Provider Active Keke Bright NP-C Attending Provider Active Test Technician Relationship Specialty Start Date End Date Jose Vail MD PCP - General Internal Medicine 05/07/16 Juan Francisco Hutchinson, AWS SOLUTION ARCHITECT.LEAD SYSTEMS DEVELOPER [address] [place] [address] Palliative Medicine Provider Hospice & Palliative Medicine 06/28/21 Kylie Mosher, RN Specialty Test Deck Supervisor Hospice & Palliative Medicine 09/27/21 Alexsander Ledezma MD [address] [place] [address] [place] [address] Physician Hematology 02/08/23 Linette Skinner, AWS SOLUTION ARCHITECT.LEAD SYSTEMS DEVELOPER [address] [place] [address] [place] [address] Referring Nurse Practitioner 02/26/23 Linette Skinner, AWS SOLUTION ARCHITECT.LEAD SYSTEMS DEVELOPER [address] [facility] [place] [address] Referring Nurse Practitioner 03/06/23 Fabiana Johnson LSW Veterinary Technician Instructor 03/08/23 Test Technician Relationship Specialty Start Date End Date Jose Vail MD PCP - General Internal Medicine 05/07/16 Juan Francisco Hutchinson, AWS SOLUTION ARCHITECT.LEAD SYSTEMS DEVELOPER [address] [place] [address] Palliative Medicine Provider Hospice & Palliative Medicine 06/28/21 Kylie Mosher RN Specialty Test Deck Supervisor Hospice & Palliative Medicine 09/27/21 Alexsander Ledezma MD [address] [place] [address] [place] [address] Physician Hematology 02/08/23 Linette Skinner, AWS SOLUTION ARCHITECT.LEAD SYSTEMS DEVELOPER [address] [facility] [place] [address] Referring Nurse Practitioner 02/26/23 Linette Skinner, AWS SOLUTION ARCHITECT.LEAD SYSTEMS DEVELOPER [address] [facility] [place] [address] Referring Nurse Practitioner 03/06/23 Fabiana Johnson LSW Veterinary Technician Instructor 03/08/23 Test Technician Relationship Specialty Start Date End Date Jose Vail MD PCP - General Internal Medicine 05/07/16 Juan Francisco Hutchinson, AWS SOLUTION ARCHITECT.LEAD SYSTEMS DEVELOPER [address] [place] [address] Palliative Medicine Provider Hospice & Palliative Medicine 06/28/21 Kylie Mosher, RN Specialty Test Deck Supervisor Hospice & Palliative Medicine 09/27/21 Alexsander Ledezma MD [address] [facility] [place] [address] Physician Hematology 02/08/23 Linette Skinner, AWS SOLUTION ARCHITECT.LEAD SYSTEMS DEVELOPER [address] [facility] [place] [address] Referring Nurse Practitioner 02/26/23 Linette Skinner, AWS SOLUTION ARCHITECT.LEAD SYSTEMS DEVELOPER [address] [facility] [place] [address] Referring Nurse Practitioner 03/06/23 Fabiana Johnson LSW Veterinary Technician Instructor 03/08/23 Test Technician Relationship Specialty Start Date End Date Jose Vail MD PCP - General Internal Medicine 05/07/16 Juan Francisco Hutchinson, AWS SOLUTION ARCHITECT.LEAD SYSTEMS DEVELOPER [address] [place] [address] Palliative Medicine Provider Hospice & Palliative Medicine 06/28/21 Kylie Mosher, RN Specialty Test Deck Supervisor Hospice & Palliative Medicine 09/27/21 Alexsander Ledezma MD [address] [place] [address] [place] [address] Physician Hematology 02/08/23 Linette Skinner, AWS SOLUTION ARCHITECT.LEAD SYSTEMS DEVELOPER [address] [facility] [place] [address] Referring Nurse Practitioner 02/26/23 Linette Skinner, AWS SOLUTION ARCHITECT.LEAD SYSTEMS DEVELOPER [address] [facility] [place] [address] Referring Nurse Practitioner 03/06/23 Fabiana Johnson LSW Veterinary Technician Instructor 03/08/23 Test Technician Relationship Specialty Start Date End Date Jose Vail MD [address] [facility] [place] [address] PCP - [employer] 02/18/22 Jose Vail MD [address] [facility] [place] [address] PCP - General Internal Medicine 06/26/22 Test Technician Relationship Specialty Start Date End Date Jose Vail MD PCP - General Internal Medicine 05/07/16 Juan Francisco Hutchinson, AWS SOLUTION ARCHITECT.LEAD SYSTEMS DEVELOPER [address] [place] [address], [place] [address] Palliative Medicine Provider Hospice & Palliative Medicine 06/28/21 Kylie Mosher, RN Specialty Test Deck Supervisor Hospice & Palliative Medicine 09/27/21 Alexsander Ledezma MD [address] [place] [address] [place] [address] Physician Hematology 02/08/23 Linette Skinner, AWS SOLUTION ARCHITECT.LEAD SYSTEMS DEVELOPER [address] [facility] [place] [address] Referring Nurse Practitioner 02/26/23 Linette Skinner, AWS SOLUTION ARCHITECT.LEAD SYSTEMS DEVELOPER [address] [facility] [place] [address] Referring Nurse Practitioner 03/06/23 Fabiana Johnson LSW Veterinary Technician Instructor 03/08/23 Test Technician Relationship Specialty Start Date End Date oJse Vail MD PCP - General Internal Medicine 05/07/16 Juan Francisco Hutchinson, AWS SOLUTION ARCHITECT.LEAD SYSTEMS DEVELOPER [address] [place] [address] Palliative Medicine Provider Hospice & Palliative Medicine 06/28/21 Kylie Mosher, RN Specialty Test Deck Supervisor Hospice & Palliative Medicine 09/27/21 Alexsander Ledezma MD [address] [place] [address] [place] [address] Physician Hematology 02/08/23 Linette Skinner, AWS SOLUTION ARCHITECT.LEAD SYSTEMS DEVELOPER [address] [facility] [place] [address] Referring Nurse Practitioner 02/26/23 Linette Skinner, AWS SOLUTION ARCHITECT.LEAD SYSTEMS DEVELOPER [address] [facility] [place] [address] Referring Nurse Practitioner 03/06/23 Fabiana Johnson LSW Veterinary Technician Instructor 03/08/23 Test Technician Relationship Specialty Start Date End Date Jose Vail MD PCP - General Internal Medicine 05/07/16 Juan Francisco Hutchinson, AWS SOLUTION ARCHITECT.LEAD SYSTEMS DEVELOPER [address] [place] [address] Palliative Medicine Provider Hospice & Palliative Medicine 06/28/21 Kylie Mosher, RN Specialty Test Deck Supervisor Hospice & Palliative Medicine 09/27/21 Alexsander Ledezma MD [address] [place] [address] [address] [place], [place] [id number] Physician Hematology 02/08/23 Linette Skinner, AWS SOLUTION ARCHITECT.LEAD SYSTEMS DEVELOPER [address] [facility] [place] [address] Referring Nurse Practitioner 02/26/23 Linette Skinner, AWS SOLUTION ARCHITECT.LEAD SYSTEMS DEVELOPER [address] [facility] [place] [address] Referring Nurse Practitioner 03/06/23 Fabiana Johnson LSW Veterinary Technician Instructor 03/08/23 Test Technician Relationship Specialty Start Date End Date Jose Vail MD PCP - General Internal Medicine 05/07/16 Juan Francisco Hutchinson, AWS SOLUTION ARCHITECT.LEAD SYSTEMS DEVELOPER [address] [place] [address] Palliative Medicine Provider Hospice & Palliative Medicine 06/28/21 Kylie Mosher, RN Specialty Test Deck Supervisor Hospice & Palliative Medicine 09/27/21 Alexsander Ledezma MD [address] [place] [address] [place] [address] Physician Hematology 02/08/23 Linette Skinner, AWS SOLUTION ARCHITECT.LEAD SYSTEMS DEVELOPER [address] [facility] [place] [address] Referring Nurse Practitioner 02/26/23 Linette Skinner, AWS SOLUTION ARCHITECT.LEAD SYSTEMS DEVELOPER [address] [facility] [place] [address] Referring Nurse Practitioner 03/06/23 Fabiana Johnson LSW Veterinary Technician Instructor 03/08/23 Test Technician Relationship Specialty Start Date End Date Jose Vail MD PCP - General Internal Medicine 05/07/16 Juan Francisco Hutchinson, AWS SOLUTION ARCHITECT.LEAD SYSTEMS DEVELOPER [address] [place] [address] Palliative Medicine Provider Hospice & Palliative Medicine 06/28/21 Kylie Mosher, RN Specialty Test Deck Supervisor Hospice & Palliative Medicine 09/27/21 Alexsander Ledezma MD [address] [place] [address] [place] [address] Physician Hematology 02/08/23 Linette Skinner, AWS SOLUTION ARCHITECT.LEAD SYSTEMS DEVELOPER [address] [facility] [place] [address] Referring Nurse Practitioner 02/26/23 Linette Skinner, AWS SOLUTION ARCHITECT.LEAD SYSTEMS DEVELOPER [address] [facility] [place] [address] Referring Nurse Practitioner 03/06/23 Fabiana Johnson LSW Veterinary Technician Instructor 03/08/23 Test Technician Relationship Specialty Start Date End Date Jose Vail MD PCP - General Internal Medicine 05/07/16 Juan Francisco Hutchinson, AWS SOLUTION ARCHITECT.LEAD SYSTEMS DEVELOPER [address] [place] [address] Palliative Medicine Provider Hospice & Palliative Medicine 06/28/21 Kylie Mosher, RN Specialty Test Deck Supervisor Hospice & Palliative Medicine 09/27/21 Alexsander Ledezma MD [address] [place] [address] [place] [address] Physician Hematology 02/08/23 Linette Skinner, AWS SOLUTION ARCHITECT.LEAD SYSTEMS DEVELOPER [address] [facility] [place] [address] Referring Nurse Practitioner 02/26/23 Linette Skinner, AWS SOLUTION ARCHITECT.LEAD SYSTEMS DEVELOPER [address] [facility] [place] [address] Referring Nurse Practitioner 03/06/23 Fabiana Johnson LSW Veterinary Technician Instructor 03/08/23 Test Technician Relationship Specialty Start Date End Date Jose Vail MD PCP - General Internal Medicine 05/07/16 Juan Francisco Hutchinson, AWS SOLUTION ARCHITECT.LEAD SYSTEMS DEVELOPER [address] [place], [place] [address] [id number] Palliative Medicine Provider Hospice & Palliative Medicine 06/28/21 Kylie Mosher RN Specialty Test Deck Supervisor Hospice & Palliative Medicine 09/27/21 Alexsander Ledezma MD [address] [place] [address] [place] [address] Physician Hematology 02/08/23 Linette Skinner, AWS SOLUTION ARCHITECT.LEAD SYSTEMS DEVELOPER [address] [place] [address] [place] [address] Referring Nurse Practitioner 02/26/23 Linette Skinner, AWS SOLUTION ARCHITECT.LEAD SYSTEMS DEVELOPER [address] [facility] [place] [address] Referring Nurse Practitioner 03/06/23 Fabiana Johnson LSW Veterinary Technician Instructor 03/08/23 Test Technician Relationship Specialty Start Date End Date Jose Vail MD PCP - General Internal Medicine 05/07/16 Juan Francisco Hutchinson, AWS SOLUTION ARCHITECT.LEAD SYSTEMS DEVELOPER [address] [place] [id number] Palliative Medicine Provider Hospice & Palliative Medicine 06/28/21 Kylie Mosher, RN Specialty Test Deck Supervisor Hospice & Palliative Medicine 09/27/21 Alexsander Ledezma MD [address] [place] [address] [place] [address] Physician Hematology 02/08/23 Linette Skinner, AWS SOLUTION ARCHITECT.LEAD SYSTEMS DEVELOPER [address] [facility] [place] [address] Referring Nurse Practitioner 02/26/23 Linette Skinner, AWS SOLUTION ARCHITECT.LEAD SYSTEMS DEVELOPER [address] [facility] [place] [address] Referring Nurse Practitioner 03/06/23 Fabiana Johnson LSW Veterinary Technician Instructor 03/08/23 Test Technician Relationship Specialty Start Date End Date Jose Vail MD PCP - General Internal Medicine 05/07/16 Juan Francisco Hutchinson, AWS SOLUTION ARCHITECT.LEAD SYSTEMS DEVELOPER [address] [place] [address] Palliative Medicine Provider Hospice & Palliative Medicine 06/28/21 Kylie Mosher, RN Specialty Test Deck Supervisor Hospice & Palliative Medicine 09/27/21 Alexsander Ledezma MD [address] [place] [address] [place] [address] Physician Hematology 02/08/23 Linette Skinner, AWS SOLUTION ARCHITECT.LEAD SYSTEMS DEVELOPER [address] [facility] [place] [address] Referring Nurse Practitioner 02/26/23 Linette Skinner, AWS SOLUTION ARCHITECT.LEAD SYSTEMS DEVELOPER [address] [facility] [place] [address] Referring Nurse Practitioner 03/06/23 Fabiana Johnson LSW Veterinary Technician Instructor 03/08/23 Test Technician Relationship Specialty Start Date End Date Jose Vail MD PCP - General Internal Medicine 05/07/16 Juan Francisco Hutchinson, AWS SOLUTION ARCHITECT.LEAD SYSTEMS DEVELOPER [address] [place] [address] Palliative Medicine Provider Hospice & Palliative Medicine 06/28/21 Kylie Mosher, RN Specialty Test Deck Supervisor Hospice & Palliative Medicine 09/27/21 Alexsander Ledezma MD [address] [place] [address] [place] [address] Physician Hematology 02/08/23 Linette Skinner, AWS SOLUTION ARCHITECT.LEAD SYSTEMS DEVELOPER [address] [facility] [place] [address] Referring Nurse Practitioner 02/26/23 Linette Skinner, AWS SOLUTION ARCHITECT.LEAD SYSTEMS DEVELOPER [address] [facility] [place] [address] Referring Nurse Practitioner 03/06/23 Fabiana Johnson LSW Veterinary Technician Instructor 03/08/23 Test Technician Relationship Specialty Start Date End Date Jose Vail MD PCP - General Internal Medicine 05/07/16 Juan Francisco Hutchinson, AWS SOLUTION ARCHITECT.LEAD SYSTEMS DEVELOPER [address] [place] [address] Palliative Medicine Provider Hospice & Palliative Medicine 06/28/21 Kylie Mosher, RN Specialty Test Deck Supervisor Hospice & Palliative Medicine 09/27/21 Alexsander Ledezma MD [address] [facility] [place] [address] Physician Hematology 02/08/23 Linette Skinner, AWS SOLUTION ARCHITECT.LEAD SYSTEMS DEVELOPER [address] [facility] [place] [address] Referring Nurse Practitioner 02/26/23 Linette Skinner, AWS SOLUTION ARCHITECT.LEAD SYSTEMS DEVELOPER [address] [facility] [place] [address] Referring Nurse Practitioner 03/06/23 Fabiana Johnson LSW Veterinary Technician Instructor 03/08/23 Test Technician Relationship Specialty Start Date End Date Jose Vail MD PCP - General Internal Medicine 05/07/16 Juan Francisco Hutchinson, AWS SOLUTION ARCHITECT.LEAD SYSTEMS DEVELOPER [address] [place] [address] Palliative Medicine Provider Hospice & Palliative Medicine 06/28/21 Kylie Mosher, RN Specialty Test Deck Supervisor Hospice & Palliative Medicine 09/27/21 Alexsander Ledezma MD [address] [place] [address] [place] [address] Physician Hematology 02/08/23 Linette Skinner, AWS SOLUTION ARCHITECT.LEAD SYSTEMS DEVELOPER [address] [facility] [place] [address] Referring Nurse Practitioner 02/26/23 Linette Skinner, AWS SOLUTION ARCHITECT.LEAD SYSTEMS DEVELOPER [address] [facility] [place] [address] Referring Nurse Practitioner 03/06/23 Fabiana Johnson LSW Veterinary Technician Instructor 03/08/23 Test Technician Relationship Specialty Start Date End Date Jose Vail MD PCP - General Internal Medicine 05/07/16 Juan Francisco Hutchinson, AWS SOLUTION ARCHITECT.LEAD SYSTEMS DEVELOPER [address] [place] [address] Palliative Medicine Provider Hospice & Palliative Medicine 06/28/21 Kylie Mosher, RN Specialty Test Deck Supervisor Hospice & Palliative Medicine 09/27/21 Alexsander Ledezma MD [address] [place] [address] [place] [address] Physician Hematology 02/08/23 Linette Skinner, AWS SOLUTION ARCHITECT.LEAD SYSTEMS DEVELOPER [address] [place] [address] Referring Nurse Practitioner 02/26/23 Linette Skinner, AWS SOLUTION ARCHITECT.LEAD SYSTEMS DEVELOPER [address] [place] [address] Referring Nurse Practitioner 03/06/23 Fabiana Johnson LSW Veterinary Technician Instructor 03/08/23 Test Technician Relationship Specialty Start Date End Date Jose Vail MD PCP - General Internal Medicine 05/07/16 Juan Francisco Hutchinson, AWS SOLUTION ARCHITECT.LEAD SYSTEMS DEVELOPER [address] [place] [address] Palliative Medicine Provider Hospice & Palliative Medicine 06/28/21 Kylie Mosher, RN Specialty Test Deck Supervisor Hospice & Palliative Medicine 09/27/21 Alexsander Ledezma MD [address] [place] [address] [place] [address] Physician Hematology 02/08/23 Linette Skinner, AWS SOLUTION ARCHITECT.LEAD SYSTEMS DEVELOPER [address] [place] [address] Referring Nurse Practitioner 02/26/23 Linette Skinner, AWS SOLUTION ARCHITECT.LEAD SYSTEMS DEVELOPER [address] [place] [address] Referring Nurse Practitioner 03/06/23 Fabiana Johnson LSW Veterinary Technician Instructor 03/08/23 Test Technician Relationship Specialty Start Date End Date Jose Vail MD PCP - General Internal Medicine 05/07/16 Juan Francisco Hutchinson, AWS SOLUTION ARCHITECT.LEAD SYSTEMS DEVELOPER [address] [place] [address] Palliative Medicine Provider Hospice & Palliative Medicine 06/28/21 Kylie Mosher, RN Specialty Test Deck Supervisor Hospice & Palliative Medicine 09/27/21 Alexsander Ledezma MD [address] [place] [address] [place] [address] Physician Hematology 02/08/23 Linette Skinner, AWS SOLUTION ARCHITECT.LEAD SYSTEMS DEVELOPER [address] [place] [address] Referring Nurse Practitioner 02/26/23 Linette Skinner, AWS SOLUTION ARCHITECT.LEAD SYSTEMS DEVELOPER [address] [place] [address] Referring Nurse Practitioner 03/06/23 Fabiana Johnson LSW Veterinary Technician Instructor 03/08/23 Test Technician Relationship Specialty Start Date End Date Jose Vail MD PCP - General Internal Medicine 05/07/16 Juan Francisco Hutchinson, AWS SOLUTION ARCHITECT.LEAD SYSTEMS DEVELOPER [address] [place] [address] Palliative Medicine Provider Hospice & Palliative Medicine 06/28/21 Kylie Mosher, RN Specialty Test Deck Supervisor Hospice & Palliative Medicine 09/27/21 Alexsander Ledezma MD [address] [place] [address] [place] [address] Physician Hematology 02/08/23 Linette Skinner, AWS SOLUTION ARCHITECT.LEAD SYSTEMS DEVELOPER [address] [place] [address] Referring Nurse Practitioner 02/26/23 Linette Skinner, AWS SOLUTION ARCHITECT.LEAD SYSTEMS DEVELOPER [address] [place] [address] Referring Nurse Practitioner 03/06/23 Fabiana Johnson LSW Veterinary Technician Instructor 03/08/23 Test Technician Relationship Specialty Start Date End Date Jose Vail MD PCP - General Internal Medicine 05/07/16 Juan Francisco Hutchinson, AWS SOLUTION ARCHITECT.LEAD SYSTEMS DEVELOPER [address] [place] [address] Palliative Medicine Provider Hospice & Palliative Medicine 06/28/21 Kylie Mosher, RN Specialty Test Deck Supervisor Hospice & Palliative Medicine 09/27/21 Alexsander Ledezma MD [address] [place] [address] [place] [address] Physician Hematology 02/08/23 Linette kSinner, AWS SOLUTION ARCHITECT.LEAD SYSTEMS DEVELOPER [address] [place] [address] Referring Nurse Practitioner 02/26/23 Linette Skinner, AWS SOLUTION ARCHITECT.LEAD SYSTEMS DEVELOPER [address] [place] [address] Referring Nurse Practitioner 03/06/23 Fabiana Johnson LSW Veterinary Technician Instructor 03/08/23 Test Technician Relationship Specialty Start Date End Date Jose Vail MD PCP - General Internal Medicine 05/07/16 Juan Francisco Hutchinson, AWS SOLUTION ARCHITECT.LEAD SYSTEMS DEVELOPER [address] [facility] [place] [address] Palliative Medicine Provider Hospice & Palliative Medicine 06/28/21 Kylie Mosher RN Specialty Test Deck Supervisor Hospice & Palliative Medicine 09/27/21 Alexsander Ledezma MD [address] [place] [address] [place] [address] Physician Hematology 02/08/23 Linette Skinner, AWS SOLUTION ARCHITECT.LEAD SYSTEMS DEVELOPER [address] [place] [address] Referring Nurse Practitioner 02/26/23 Linette Skinner, AWS SOLUTION ARCHITECT.LEAD SYSTEMS DEVELOPER [address] [place] [address] Referring Nurse Practitioner 03/06/23 Fabiana Johnson LSW Veterinary Technician Instructor 03/08/23 Test Technician Relationship Specialty Start Date End Date Jose Vail MD PCP - General Internal Medicine 05/07/16 Juan Francisco Hutchinson, AWS SOLUTION ARCHITECT.LEAD SYSTEMS DEVELOPER [address] [place] [address] Palliative Medicine Provider Hospice & Palliative Medicine 06/28/21 Kylie Mosher, RN Specialty Test Deck Supervisor Hospice & Palliative Medicine 09/27/21 Alexsander Ledezma MD [address] [place] [address] [place] [address] Physician Hematology 02/08/23 Linette Skinner APRN.LEAD SYSTEMS DEVELOPER [address] [place] [address] [place] [address] Referring Nurse Practitioner 02/26/23 Linette Skinner APRN.LEAD SYSTEMS DEVELOPER [address] [place] [address] Referring Nurse Practitioner 03/06/23 Fabiana Johnson LSW Veterinary Technician Instructor 03/08/23 Goals (unrecognized section and content) Goals may be documented in a n alternate section Inactive Administered Medications - up to 3 most recent administrations Administered Medications (un recognized section and content) Medication Order MAR Action Action Date Dose Rate Site ipratropium-albuterol 3 mL nebulizer solution (DUONEB) 3 mL, INHALATION, ONCE, 1 dose, On Sat05/31/23 at 1530, PROTECT FROM LIGHT. The unit-dose vial should remain stored in the protective foil pouch until time of use. Given 05/31/2023 3:12 PM EDT 3 mL FOR RECORDS PERTAINING TO PATIENTS WHO ARE [...] BE BASED ON THE PRIMARY CLINICAL RECORDS. [employer] provides no warranty or guarantee of the accuracy or completeness of information in this document.
[2023-08-01] MEDS: 0.9 % SODIUM CHLORIDE 1,000 ML 1000 ML IV (01:45)
[2023-08-01] MEDS: 0.9 % SODIUM CHLORIDE 1,000 ML 125 ML IV (03:03)
[2023-08-01] MEDS: IPRATROPIUM/ALBUTEROL SULFATE 3 ML AMPUL.NEB IH (04:20)
[2023-08-01 05:26] LABS: Basophils Percent Auto 0.1 % (0.2-2.0); Hematocrit 39.3 % (36.0-48.0); Hemoglobin 12.8 g/dL (12.0-16.0); Immature Granulocytes Abs Auto 0.05 10^3/uL (0.00-0.03); Immature Granulocytes Pct Auto 0.3 % (0.0-0.5); Lymphocytes Absolute Auto 0.8 10^3/uL (1.2-3.8); Lymphocytes Percent Auto 5.7 % (20.5-60.0); Mean Corpuscular HGB Conc 32.6 g/dL (29.9-35.2); Mean Corpuscular Hemoglobin 31.4 pg (26.7-34.0); Mean Corpuscular Volume 96.3 fL (81.0-99.0); Mean Platelet Volume 9.8 fL (9.5-13.5); Monocytes Absolute Auto 0.1 10^3/uL (0.3-0.8); Monocytes Percent Auto 0.9 % (1.7-12.0); Neutrophils Absolute Auto 13.4 10^3/uL (1.4-6.5); Platelet Count 288 10^3/uL (150-450); Red Blood Count 4.08 10^6/uL (4.20-5.40); Red Cell Distribution Width 12.8 % (11.0-15.0); White Blood Count 14.4 10^3/uL (4.0-11.0)
[2023-08-01 05:52] LABS: Alanine Aminotransferase 46 U/L (14-59); Albumin Globulin Ratio 0.9; Alkaline Phosphatase 64 U/L (46-116); Anion Gap 9.9; Aspartate Amino Transferase 30 U/L (15-37); BUN Creatinine Ratio 12.1; Bilirubin Total 0.5 mg/dL (0.2-1.0); Calcium 8.3 mg/dL (8.5-10.1); Carbon Dioxide 26.2 mmol/L (21.0-32.0); Chloride 108 mmol/L (98-107); Estimated GFR (African America >60 (>=60); Estimated GFR (Non-African Ame >60 (>=60); Globulin 3.4 g/dL; Glucose 144 mg/dL (74-106); Magnesium 2.2 mg/dL (1.8-2.4); Potassium 4.1 mmol/L (3.5-5.1); Sodium 140 mmol/L (136-145); Total Protein 6.4 g/dL (6.4-8.2)
[2023-08-01] MEDS: LEVOTHYROXINE SODIUM 75 MCG TABLET PO (06:09)
[2023-08-01] MEDS: ACETAMINOPHEN 325 MG TABLET 650 MG PO (06:19)
[2023-08-01] MEDS: OXYCODONE HCL 5 MG TABLET 10 MG PO (06:19)
[2023-08-01] MEDS: OMEPRAZOLE 20 MG CAPSULE.DR 30 MG PO (09:10)
[2023-08-01] MEDS: ATENOLOL 50 MG TABLET PO (09:10)
[2023-08-01] MEDS: METHYLPREDNISOLONE SOD SUCC PF 40 MG/ML VIAL IVP (09:10)
[2023-08-01] MEDS: RIVAROXABAN 10 MG TABLET PO (09:10)
--- NOTE | 2023-08-01 11:14 | P.HP_ITS ---
<Statement entered by Carloz Choi MD - 08/01/23 21:36> Patient seen and examined, agree with assessment and plan below. Presented with SOB and cough. [place] feverish and run down. To ER and found pneumonia. Started antibiotics and breathing treatments. Significantly improved overnight and afebrile. Discharged home in stable condition. Complete antibiotics and steroi ds as prescribed. Diagnosis: 1. Pneumonia 2. Restrictive lung disease 3. Arthralgia of right wrist 4. Hodgkin's disease 5. Chemotherapy induced neuropathy HPI H&P: HPI History of Present Illness Chief complaint: Upper Injury Fever Headache pneumonia w/hypoxia Narrative: 08/01/23 1045 This is a 43-year-old female patient with a past medical history as outlined below including Hodgkin's lymphoma s/p stem cell transplant, history of PE on Xarelto, restrictive lung disease after radiation treatments, depression, and hypothyroidism; who presented to the ED last night complaining of right wrist pain with concerns for acute fracture from doing yard work and onset of cough headache and fever that began yesterday morning. The patient noted her cough and bodyaches about 9 AM yesterday. She has had experience with pneumonia in the past and decided not to wait too long to present to the ED which she did when her symptoms persisted. Workup in the ED revealed tachycardia (120 bpm), low-grade temp (100.2), and borderline hypoxia (90% on room air). Within a couple of hours of arriving in the ED the patient's O2 sats dropped to 86% on room air and she was placed on oxygen supplementation. Labs were mostly unremarkable except for Leukocytosis (17.2), and mild hypokalemia (3.4). Chest x-ray revealed patchy consolidations in the bilateral lower lobes consistent with pneumonia. The patient was admitted late last night in observation to the hospitalist service for And acute respiratory failure with restrictive lung disease. At the time of my exam the patient is sitting up in a bedside chair. She has been weaned off of O2 supplementation and denies any shortness of breath. Wheezing that was noted in the ED has resolved. She has been afebrile overnight and she reports feeling much improved. Disposition: As the patient is doing well she is being discharged home in stable condition. She is prescribed a 10-day course of Levaquin and a long steroid taper with prednisone. She should follow-up with her PCP within 5 to 7 days or return to the ED if her symptoms recur. Opioid HPI Opioid Management Most Recent Opioid Data: Last Pain Scale 2 08/01/23 12:00 Last Pain Assessment 08/01/23 12:00 Last MAR Pain Assessment 08/01/23 07:19 Last ORT Total Score 1 08/01/23 01:05 Last ORT Risk Category Low Risk 08/01/23 01:05 Review of Systems ROS Status of ROS 10 or more systems reviewed and unremark able except as noted in history and below [facility] Medical History (Updated 08/01/23 @ 11:25 by Paula Hutchinson NP) Restrictive lung disease ?J98.4 - Other disorders of lung (ICD-10) 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 - Drug-induced polyneuropathy (ICD-10) ?T45.1X5A - Adverse effect of antineoplastic and immunosuppressive drugs, initial encounter (ICD-10) Hodgkin lymphoma ?C81.90 - Hodgkin lymphoma, unspecified, unspecified site (ICD-10) Insomnia ?G47.00 - Insomnia, unspecified (ICD-10) Tachycardia ?R00.0 - Tachycardia, unspecified (ICD-10) Surgical History (Updated 04/02/23 @ 08:34 by Rosmery Robert) H/O stem cell transplant ?Z94.84 - Stem cells transplant status (ICD-10) Social History (Updated 04/02/23 @ 08:30 by Rosmery Robert) Within the past year, how often did you have a drink containing alcohol: monthly or less Within the past year, how many standard drinks containing alcohol did you have on a typical day: 1 or 2 Within the past year, how often did you have six or more drinks on one occasion: never Total score: 0 Score interpretation: A score less than 3 is consistent with normal alcohol consumption. Smoking status: Never smoker Non-prescribed substance use: denies use Previous occupational history: unemployed Highest level of school completed/degree received: Associate degree: occupational, technical, vocational program Are you now , , , , never or living with a partner: In a typical week, how many times do you talk on the telephone with family, friends, or neighbors: 3 or more times per week How often do you get together with friends or relatives: 3 or more times per week How often do you attend jewish or holiness services: never Do you belong to any clubs or organizations such as jewish groups unions, fraternal or athletic groups, or school groups: no Total score: 2 Score interpretation: A score of greater than or equal to 2 indicates the lowest level of social isolation. Little interest or pleasure in doing things: not at all Feeling down, depressed, or hopeless: not at all Feel stressed/tense/nervous/anxious/difficulty sleeping: not at all Do you think of yourself as: straight/heterosexual Gender Identity: female Meds Home Medications and Allergies Home Medications ?Medication ?Instructions ?Recorded ?Confirmed ?Type atenolol 50 mg tablet 50 mg PO BID 04/02/23 07/31/23 History cyclobenzaprine 10 mg tablet 10 mg PO TID PRN muscle spasm 04/02/23 07/31/23 History gabapentin 300 mg capsule 300 mg PO TID 04/02/23 07/31/23 History levothyroxine 75 mcg tablet 75 mcg PO .QD 04/02/23 07/31/23 History lorazepam 0.5 mg tablet 0.5 mg PO QID PRN anxiety 04/02/23 07/31/23 History mirtazapine 30 mg tablet 30 mg PO QPM 04/02/23 07/31/23 History oxycodone 10 mg tablet 10 mg PO Q6H PRN pain 04/02/23 07/31/23 History rivaroxaban 10 mg tablet (Xarelto) 10 mg PO DAILY 04/02/23 07/31/23 History trazodone 100 mg tablet 100 mg PO QPM PRN sleep 04/02/23 07/31/23 History trazodone 50 mg tablet 50 mg PO .QHS PRN sleep 04/02/23 07/31/23 History fluticasone fur. 200 mcg-umeclid 1 inh inhalation Q24H 07/31/23 07/31/23 History 62.5 mcg-vilant 25 mcg inhalat.powder (Trelegy Ellipta) pantoprazole 40 mg tablet,delayed 40 mg PO DAILY 07/31/23 07/31/23 History release levofloxacin 750 mg tablet 750 mg PO DAILY 10 days #10 tabs 08/01/23 Rx prednisone 10 mg tablet See Rx Instructions .Route 08/01/23 Rx .COMPLEX 12 days #42 tabs Allergies Allergy/AdvReac Type Severity Reaction Status Date / Time Sulfa (Sulfonamide AdvReac Mild Rash Verified 07/31/23 21:10 Antibiotics) Exam Constitutional Vital Signs, click to edit/add: Last Vital Signs Temp 97.7 F 08/01/23 07:45 Pulse 102 H 08/01/23 09:56 Resp 18 08/01/23 07:45 BP 91/60 08/01/23 07:45 Pulse Ox 95 08/01/23 10:19 O2 Del Method Room Air 08/01/23 10:19 O2 Flow Rate 1 08/01/23 07:45 Common normals: no apparent distress, oriented x3, alert and well nourished General appearance: cooperative Orientation/consciousness: Yes awake HENMT Common normals: normocephalic, head/scalp atraumatic, hearing grossly normal bilaterally, external nose normal and moist oral mucous membranes Eye Common normals: PERRL, EOMs intact bilaterally, conjunctivae normal and no scleral icterus Alignment: alignment normal Eyelid: eyelids normal Neck & C-Spine Common normals: full ROM, supple and no JVD Chest Common normals: inspection of chest normal Chest: symmetrical chest wall rise Respiratory Common normals: normal respiratory effort, no retractions and no use of accessory muscles Effort & inspection: able to speak in complete sentences Auscultation: crackles (Faint, RLL) and diminished lung sounds (LLL very diminished) Cardio Common normals: no JVD, regular rate (Borderline tachy), regular rhythm, S1 normal heart sound, S2 normal heart sound, no gallops, no clicks, no murmurs, no rub and peripheral pulses 2+ throughout GI Common normals: Normal to inspection, nondistended, normoactive bowel sounds present, soft to palpation, non-tender, no hepatosplenomegaly, no masses and no bruits Bladder/kidney exam: bladder normal to palpation Back & Pelvis Common normals: thoracic and lumbar spine normal to inspection Extremity Common normals: normal capillary refill and no pedal edema General: normal exam except as noted; no clubbing and no cyanosis Neuro Sabin Coma Scale: GCS not evaluated Common normals: CN's II-XII intact bilaterally, moves all extremities, no focal motor deficits and no sensory deficits noted Speech: speech normal Motor exam: strength 5/5 throughout Psych Common normals: mental status grossly normal, thought process normal, affect normal and activity/motor behavior normal Results Labs Labs: Short CBC 07/31/23 08/01/23 Range/Units 21:53 04:15 WBC 17.2 H 14.4 H (4.0-11.0) 10^3/uL Hgb 13.9 12.8 (12.0-16.0) g/dL Hct 41.7 39.3 (36.0-48.0) % Plt Count 280 288 (150-450) 10^3/uL BMP 07/31/23 08/01/23 21:53 04:15 Sodium 136 140 Potassium 3.4 L 4.1 Chloride 102 108 H Carbon Dioxide 26.2 26.2 BUN 9.0 8.0 Creatinine 0.77 0.66 Glucose 108 H 144 H Calcium 9.3 8.3 L Liver Function 07/31/23 08/01/23 Range/Units 21:53 04:15 Total Bilirubin 1.1 H 0.5 (0.2-1.0) mg/dL AST 36 30 (15-37) U/L ALT 56 46 (14-59) U/L Alkaline Phosphatase 71 64 (46-116) U/L Albumin 3.7 3.0 L (3.4-5.0) g/dL Urine 07/31/23 Range/Units 22:10 Urine Color Lt. yellow (YELLOW) Urine Clarity Clear (CLEAR) Urine pH 6.5 (5.0-9.0) Ur Specific [place] <=1.005 A (1.005-1.025) Urine Protein Negative (NEG/TRACE) mg/dL Urine Glucose (UA) Negative (NEGATIVE) mg/dL Pulse Oximetry Attestation: I have reviewed the pertinent pulse oximetry results. Imaging R Wrist X-ray: Attestation: I have reviewed the pertinent imaging results. Radiologist's impression: IMPRESSION: No acute bony abnormality. Chest x-ray: Attestation: I have reviewed the pertinent imaging results. Radiologist's impression: FINDINGS/IMPRESSION: 1. Patchy consolidation at the bilateral lung bases. 2. No pneumothorax. No pleural effusion. 3. Heart size and mediastinal contours are normal 4. No acute osseous abnormality 5. Upper abdominal bowel gas pattern is nonspecific and nonobstructive. Assessment and Plan Assessment and Plan (1) Pneumonia: Assessment and Plan: Acute * Adm observation * IVPB Rocephin/Azithromycin started in the ED * D/C on Levaquin PO x 10 day course * Leukocytosis trending down today * Pt remains afebrile * Nursing able to wean off O2 * Stable for D/C (2) Arthralgia of right wrist: Assessment and Plan: Acute * R wrist pain after injury doing yard work * XR neg for acute bony abnormality * Pt already has a follow up appt with her orthopedic provider on 08/12/23 - defer to outpatient management (3) Restrictive lung disease: Assessment and Plan: Chronic * Duonebs scheduled * Solu-medrol IVP * D/C on long prednisone taper * Wheezing noted in ED, now resolved (4) Tachycardia: Assessment and Plan: Chronic * Continue home atenolol
--- NOTE | 2023-08-01 11:42 | CM.NOTE ---
Rounds made with Dr. Choi. Dr. Choi reviews testing with Ms. Weller. Plan for discharge today. Ms. Weller agreeable.
== END 2023-08-01 12:22 | disposition home or self-care (01) ==
LOC: ER 23:58 → MS 08-01 00:46
PROVIDERS: Registered Nurse; Admitting Provider Family Medicine; Emergency Provider Emergency Medicine; Visit Provider Family Medicine
DX: J18.9 Pneumonia, unspecified organism (principal); J98.4 Other disorders of lung; M25.531 Pain in right wrist; G62.9 Polyneuropathy, unspecified; T45.1X5A Adverse effect of antineoplastic and immunosuppressive drugs, initial encounter; R00.0 Tachycardia, unspecified; Z85.71 Personal history of Hodgkin lymphoma; F32.A Depression, unspecified; E03.9 Hypothyroidism, unspecified; Z94.84 Stem cells transplant status; Z20.822 Contact with and (suspected) exposure to COVID-19; Z86.711 Personal history of pulmonary embolism; Z79.01 Long term (current) use of anticoagulants
CPT/HCPCS: 0202U; 36415; 71046; 73110; 80053; 81001; 83605; 83735; 84145; 85025; 87040; 87070; 87880; 93005; 94640; 94761; 96365; 96367; 96368; 96375; 96376; 99285; G0378; J0456; J0696; J2405; J2919; J7620

== ENCOUNTER 2023-10-29 09:53 | Inpatient (IN) | payer MEDICARE, MEDICAID, SELFPAY ==
[2023-10-29] VITALS (41 sets, daily range): BP systolic 103–119; BP diastolic 69–86; PULSE 97–111; TEMP 36.8–37.5; O2SAT 80–98; BMI 31.2; BMI 31.6
--- NOTE | 2023-10-29 10:12 | XR_ITS ---
[address] [address] Patient Name: CELSO POTTS MRN: [id number] date: 1980 Sex: F Assigned Patient Location: ER Current Patient Location: ER Accession/Order Number: [id number] Exam Date: 10/29/2023 10:25 Report Date: 10/29/2023 10:42 At the request of: GURU GARCIA Procedure: XR chest 1V EXAMINATION: XR chest 1V HISTORY: Cough/fever COMPARISON: 03/31/2023 TECHNIQUE: AP portable FINDINGS: LUNGS: Low lung volumes. The right lung is clear. Moderate left basilar infiltrate obscuring the hemidiaphragm and partially obscuring the heart border. Perihilar infiltrates. VASCULATURE: Moderately increased pulmonary vascularity PLEURA: No pneumothorax, effusion, or pleural thickening. CARDIAC: No cardiomegaly or cardiac silhouette abnormality. MEDIASTINUM: No visible mass or adenopathy. BONES: No fracture or visible bone lesion. OTHER: Negative. XR/XR chest 1V IMPRESSION: Left lower lobe infiltrate, consider pneumonia Pulmonary vascular congestion Electronically authenticated by: LYN PETER Date: 10/29/2023 10:42
[2023-10-29] MEDS: IPRATROPIUM/ALBUTEROL SULFATE 3 ML AMPUL.NEB IH ×4 (10:31→22:56)
[2023-10-29 10:39] LABS: PCO2 VBG 42.6 mmHg (40.0-52.0); pH VBG 7.401 (7.330-7.430)
[2023-10-29 10:42] LABS: Basophils Absolute Auto 0.1 10^3/uL (0.0-0.1); Basophils Percent Auto 0.3 % (0.2-2.0); Eosinophils Absolute Auto 0.1 10^3/uL (0.0-0.7); Eosinophils Percent Auto 0.8 % (0.9-7.0); Hematocrit 42.1 % (36.0-48.0); Hemoglobin 14.2 g/dL (12.0-16.0); Immature Granulocytes Abs Auto 0.05 10^3/uL (0.00-0.03); Immature Granulocytes Pct Auto 0.3 % (0.0-0.5); Lymphocytes Absolute Auto 1.2 10^3/uL (1.2-3.8); Lymphocytes Percent Auto 7.6 % (20.5-60.0); Mean Corpuscular HGB Conc 33.7 g/dL (29.9-35.2); Mean Corpuscular Hemoglobin 31.2 pg (26.7-34.0); Mean Corpuscular Volume 92.5 fL (81.0-99.0); Mean Platelet Volume 9.3 fL (9.5-13.5); Monocytes Absolute Auto 0.9 10^3/uL (0.3-0.8); Monocytes Percent Auto 5.4 % (1.7-12.0); Neutrophils Absolute Auto 13.7 10^3/uL (1.4-6.5); Neutrophils Percent Auto 85.6 % (43.0-75.0); Platelet Count 345 10^3/uL (150-450); Red Blood Count 4.55 10^6/uL (4.20-5.40); Red Cell Distribution Width 13.4 % (11.0-15.0)
[2023-10-29 10:57] LABS: INR 0.96; Prothrombin Time 10.2 sec (9.0-11.6)
[2023-10-29 11:00] LABS: Influenza Virus A Antigen Negative; Influenza Virus B Antigen Negative; Internal Control Within Normal Limits; SARS-CoV-2 Ag NEGATIVE (NEGATIVE)
[2023-10-29 11:09] LABS: Alanine Aminotransferase 49 U/L (14-59); Albumin Globulin Ratio 0.9; Albumin Level 3.5 g/dL (3.4-5.0); Alkaline Phosphatase 80 U/L (46-116); Anion Gap 11.8; Aspartate Amino Transferase 28 U/L (15-37); BUN Creatinine Ratio 18.3; Bilirubin Total 0.6 mg/dL (0.2-1.0); Calcium 8.8 mg/dL (8.5-10.1); Chloride 101 mmol/L (98-107); Estimated GFR (African America >60 (>=60); Estimated GFR (Non-African Ame >60 (>=60); Globulin 3.7 g/dL; Glucose 104 mg/dL (74-106); Potassium 3.8 mmol/L (3.5-5.1); Sodium 137 mmol/L (136-145); Total Protein 7.2 g/dL (6.4-8.2)
[2023-10-29] MEDS: ACETAMINOPHEN 500 MG TABLET 1000 MG PO (11:24)
[2023-10-29] MEDS: HYDROMORPHONE HCL 0.5 MG/0.5 ML SYRINGE IV (11:26)
--- NOTE | 2023-10-29 11:35 | PC.NURSE ---
PT AMBULATED TO RESTROOM AND BACK. SPO2 80% ON ROOM AIR. 2L O2 CONTINUED.
[2023-10-29 11:45] LABS: Bilirubin Urine NEGATIVE (NEGATIVE); Blood Urine NEGATIVE (NEGATIVE); Clarity Urine CLEAR (CLEAR); Color Urine LT. YELLOW (YELLOW); Glucose Urine UA NEGATIVE (NEGATIVE); Ketones Urine NEGATIVE (NEGATIVE); Leukocyte Esterase Urine NEGATIVE (NEGATIVE); Nitrite Urine NEGATIVE (NEGATIVE); Protein Urine NEGATIVE (NEG/TRACE); Urobilinogen Urine 0.2 EU/dL (0.2-1.0)
[2023-10-29 12:01] LABS: Urine Microscopic Indicated NO
--- NOTE | 2023-10-29 12:49 | ED_ITS ---
HPI - SOB/Dyspnea General Chief Complaint: Shortness of Breath/Dyspnea Stated Complaint: SOB, HEADACHE, FEVER Time Seen by Provider: 10/29/23 10:11 History of Present Illness HPI Narrative: This for is here complaining of cough and shortness of breath. She had fever aches and chills for the last several days. She has a history of restrictive lung disease and sees physicians at the [facility] in that regard. She has not become eligible for home oxygen. She does have a pulse oximeter at home and it has been 9192% but was lower today. Here in the ER when we ambulate her to the restroom it dropped down to 80% with good waveform on room air. Here in the ER she has some cough. She is does not have any chest pain or discomfort. She is a good historian. She had PCP pneumonia when she is being treated for Hodgkin's disease when she was much younger and she has had 2 episodes of pneumonia in the last year or so but she does not know the bacterial pathogen for sure. She did not test herself for COVID at home. She has some nausea but no severe vomiting. She is urinating normally. Related Data Home Medications ?Medication ?Instructions ?Recorded ?Confirmed atenolol 50 mg tablet 50 mg PO BID 04/02/23 07/31/23 cyclobenzaprine 10 mg tablet 10 mg PO TID PRN muscle spasm 04/02/23 07/31/23 gabapentin 300 mg capsule 300 mg PO TID 04/02/23 07/31/23 levothyroxine 75 mcg tablet 75 mcg PO .QD 04/02/23 07/31/23 lorazepam 0.5 mg tablet 0.5 mg PO QID PRN anxiety 04/02/23 07/31/23 mirtazapine 30 mg tablet 30 mg PO QPM 04/02/23 07/31/23 oxycodone 10 mg tablet 10 mg PO Q6H PRN pain 04/02/23 07/31/23 rivaroxaban 10 mg tablet (Xarelto) 10 mg PO DAILY 04/02/23 07/31/23 trazodone 100 mg tablet 100 mg PO QPM PRN sleep 04/02/23 07/31/23 trazodone 50 mg tablet 50 mg PO .QHS PRN sleep 04/02/23 07/31/23 fluticasone fur. 200 mcg-umeclid 1 inh inhalation Q24H 07/31/23 07/31/23 62.5 mcg-vilant 25 mcg inhalat.powder (Trelegy Ellipta) pantoprazole 40 mg tablet,delayed 40 mg PO DAILY 07/31/23 07/31/23 release escitalopram oxalate 10 mg tablet 10 mg PO DAILY 10/29/23 10/29/23 ipratropium 0.5 mg-albuterol 3 mg 3 ml inhalation Q6H PRN shortness 10/29/23 10/29/23 (2.5 mg base)/3 mL nebulization of breath or wheezing soln tolterodine 2 mg capsule,extended 2 mg PO Q24H 10/29/23 10/29/23 release 24 hr Allergies Allergy/AdvReac Type Severity Reaction Status Date / Time NSAIDS (Non-Steroidal AdvReac Mild Unknown Verified 10/29/23 11:05 Anti-Inflamma Sulfa (Sulfonamide AdvReac Mild Rash Verified 10/29/23 10:04 Antibiotics) 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 - Drug-induced polyneuropathy (ICD-10) ?T45.1X5A - Adverse effect of antineoplastic and immunosuppressive drugs, initial encounter (ICD-10) Hodgkin lymphoma ?C81.90 - Hodgkin lymphoma, unspecified, unspecified site (ICD-10) Insomnia ?G47.00 - Insomnia, unspecified (ICD-10) Tachycardia ?R00.0 - Tachycardia, unspecified (ICD-10) Surgical History (Updated 04/02/23 @ 08:34 by Rosmery Robert) H/O stem cell transplant ?Z94.84 - Stem cells transplant status (ICD-10) Social History (Updated 04/02/23 @ 08:30 by Rosmery Robert) Within the past year, how often did you have a drink containing alcohol: monthly or less Within the past year, how many standard drinks containing alcohol did you have on a typical day: 1 or 2 Within the past year, how often did you have six or more drinks on one occasion: never Total score: 0 Score interpretation: A score less than 3 is consistent with normal alcohol consumption. Smoking status: Never smoker Non-prescribed substance use: denies use Previous occupational history: unemployed Highest level of school completed/degree received: Associate degree: occupational, technical, vocational program Are you now , , , , never or living with a partner: In a typical week, how many times do you talk on the telephone with family, friends, or neighbors: 3 or more times per week How often do you get together with friends or relatives: 3 or more times per week How often do you attend voodoo or christianity services: never Do you belong to any clubs or organizations such as voodoo groups unions, fraternal or athletic groups, or school groups: no Total score: 2 Score interpretation: A score of greater than or equal to 2 indicates the lowest level of social isolation. Little interest or pleasure in doing things: not at all Feeling down, depressed, or hopeless: not at all Feel stressed/tense/nervous/anxious/difficulty sleeping: not at all Do you think of yourself as: straight/heterosexual Gender Identity: female Exam Narrative Exam Narrative: Patient is good historian vital signs are stable pulse oximetry is 91 to 92% on room air. When she ambulated she dropped to 80% so we applied supplemental O2 to keep her pulse ox 93 to 95%. She has good cognition she is a good historian she is not confused has no nuchal rigidity or meningeal irritation there is no light sensitivity. She does states she has a headache. Her lungs do show some scattered rhonchi. Heart sounds are normal with no murmur. Extremities do not show any evidence of phlebitis erythema or edema. She has no abdominal complaint. Neurological she has no focal neurological complaints or deficits. Constitutional Vital Signs, click to edit/add: Last Vital Signs Temp 99.5 F 10/29/23 09:59 Pulse 107 H 10/29/23 10:31 Resp 20 10/29/23 09:59 BP 119/86 10/29/23 10:01 Pulse Ox 94 L 10/29/23 12:00 O2 Del Method Room Air 10/29/23 11:35 O2 Flow Rate 2 10/29/23 10:31 Course Vital Signs Vital signs: Vital Signs Temperature 99.5 F 10/29/23 09:59 Pulse Rate 111 H 10/29/23 09:59 Respiratory Rate 20 10/29/23 09:59 Blood Pressure 119/86 10/29/23 09:59 Pulse Oximetry 91 L 10/29/23 09:59 Oxygen Delivery Method Room Air 10/29/23 09:59 Temperature 99.5 F 10/29/23 09:59 Pulse Rate 107 H 10/29/23 10:31 Respiratory Rate 20 10/29/23 09:59 Blood Pressure 119/86 10/29/23 10:01 Pulse Oximetry 94 L 10/29/23 12:00 Oxygen Delivery Method Room Air 10/29/23 11:35 Oxygen Delivery Flow Rate 2 10/29/23 10:31 MDM - SOB/Dyspnea MDM Narrative Medical decision making narrative: This patient has restrictive lung disease and becomes hypoxic with minimal exertion. Chest x-ray suggest left lower lobe infiltrate and her white blood cell count is elevated. Blood cultures have been done. We will start her on antibiotics. Case was discussed with the hospitalist and he agrees the need for admission. Lab Data Labs: Lab Results 10/29/23 10/29/23 10/29/23 Range/Units 10:06 10:13 10:21 WBC 16.0 H (4.0-11.0) 10^3/uL RBC 4.55 (4.20-5.40) 10^6/uL Hgb 14.2 (12.0-16.0) g/dL Hct 42.1 (36.0-48.0) % MCV 92.5 (81.0-99.0) fL MCH 31.2 (26.7-34.0) pg MCHC 33.7 (29.9-35.2) g/dL RDW 13.4 (11.0-15.0) % Plt Count 345 (150-450) 10^3/uL MPV 9.3 L (9.5-13.5) fL Neut % (Auto) 85.6 H (43.0-75.0) % Lymph % (Auto) 7.6 L (20.5-60.0) % [place] % (Auto) 5.4 (1.7-12.0) % Eos % (Auto) 0.8 L (0.9-7.0) % Baso % (Auto) 0.3 (0.2-2.0) % Neut # (Auto) 13.7 H (1.4-6.5) 10^3/uL Lymph # (Auto) 1.2 (1.2-3.8) 10^3/uL [place] # (Auto) 0.9 H (0.3-0.8) 10^3/uL Eos # (Auto) 0.1 (0.0-0.7) 10^3/uL Baso # (Auto) 0.1 (0.0-0.1) 10^3/uL Abs Immat Gran (auto) 0.05 H (0.00-0.03) 10^3/uL Imm/Tot Granulo (auto) 0.3 (0.0-0.5) % PT 10.2 (9.0-11.6) sec INR 0.96 VBG pH 7.401 (7.330-7.430) VBG pCO2 42.6 (40.0-52.0) mmHg Sodium 137 (136-145) mmol/L Potassium 3.8 (3.5-5.1) mmol/L Chloride 101 (98-107) mmol/L Carbon Dioxide 28.0 (21.0-32.0) mmol/L Anion Gap 11.8 BUN 13.0 (7.0-18.0) mg/dL Creatinine 0.71 (0.55-1.02) mg/dL Est GFR ( Amer) >60 (>=60) Est GFR (Non-Af Amer) >60 (>=60) BUN/Creatinine Ratio 18.3 Glucose 104 (74-106) mg/dL Calcium 8.8 (8.5-10.1) mg/dL Total Bilirubin 0.6 (0.2-1.0) mg/dL AST 28 (15-37) U/L ALT 49 (14-59) U/L Alkaline Phosphatase 80 (46-116) U/L Total Protein 7.2 (6.4-8.2) g/dL Albumin 3.5 (3.4-5.0) g/dL Globulin 3.7 g/dL Albumin/Globulin Ratio 0.9 Urine Color (YELLOW) Urine Clarity (CLEAR) Urine pH (5.0-9.0) Ur Specific [place] (1.005-1.025) Urine Protein (NEG/TRACE) mg/dL Urine Glucose (UA) (NEGATIVE) mg/dL Urine Ketones (NEGATIVE) mg/dL Urine Occult Blood (NEGATIVE) Urine Nitrite (NEGATIVE) Urine Bilirubin (NEGATIVE) Urine Urobilinogen (0.2-1.0) EU/dL Ur Leukocyte Esterase (NEGATIVE) Influenza Type A Ag Negative Influenza Type B Ag Negative SARS-CoV-2 Ag (CV2AG) Negative (NEGATIVE) 10/29/23 Range/Units 11:34 WBC (4.0-11.0) 10^3/uL RBC (4.20-5.40) 10^6/uL Hgb (12.0-16.0) g/dL Hct (36.0-48.0) % MCV (81.0-99.0) fL MCH (26.7-34.0) pg MCHC (29.9-35.2) g/dL RDW (11.0-15.0) % Plt Count (150-450) 10^3/uL MPV (9.5-13.5) fL Neut % (Auto) (43.0-75.0) % Lymph % (Auto) (20.5-60.0) % [place] % (Auto) (1.7-12.0) % Eos % (Auto) (0.9-7.0) % Baso % (Auto) (0.2-2.0) % Neut # (Auto) (1.4-6.5) 10^3/uL Lymph # (Auto) (1.2-3.8) 10^3/uL [place] # (Auto) (0.3-0.8) 10^3/uL Eos # (Auto) (0.0-0.7) 10^3/uL Baso # (Auto) (0.0-0.1) 10^3/uL Abs Immat Gran (auto) (0.00-0.03) 10^3/uL Imm/Tot Granulo (auto) (0.0-0.5) % PT (9.0-11.6) sec INR VBG pH (7.330-7.430) VBG pCO2 (40.0-52.0) mmHg Sodium (136-145) mmol/L Potassium (3.5-5.1) mmol/L Chloride (98-107) mmol/L Carbon Dioxide (21.0-32.0) mmol/L Anion Gap BUN (7.0-18.0) mg/dL Creatinine (0.55-1.02) mg/dL Est GFR ( Amer) (>=60) Est GFR (Non-Af Amer) (>=60) BUN/Creatinine Ratio Glucose (74-106) mg/dL Calcium (8.5-10.1) mg/dL Total Bilirubin (0.2-1.0) mg/dL AST (15-37) U/L ALT (14-59) U/L Alkaline Phosphatase (46-116) U/L Total Protein (6.4-8.2) g/dL Albumin (3.4-5.0) g/dL Globulin g/dL Albumin/Globulin Ratio Urine Color Lt. yellow (YELLOW) Urine Clarity Clear (CLEAR) Urine pH 6.0 (5.0-9.0) Ur Specific [place] 1.020 (1.005-1.025) Urine Protein Negative (NEG/TRACE) mg/dL Urine Glucose (UA) Negative (NEGATIVE) mg/dL Urine Ketones Negative (NEGATIVE) mg/dL Urine Occult Blood Negative (NEGATIVE) Urine Nitrite Negative (NEGATIVE) Urine Bilirubin Negative (NEGATIVE) Urine Urobilinogen 0.2 (0.2-1.0) EU/dL Ur Leukocyte Esterase Negative (NEGATIVE) Influenza Type A Ag Influenza Type B Ag SARS-CoV-2 Ag (CV2AG) (NEGATIVE) Discharge Plan Discharge Chief Complaint: Shortness of Breath/Dyspnea Clinical Impression: Pneumonia Patient Disposition: Admitted as Observation Time of Disposition Decision: 12:52 Prescriptions / Home Meds: No Action atenolol 50 mg tablet 50 mg PO BID gabapentin 300 mg capsule 300 mg PO TID lorazepam 0.5 mg tablet 0.5 mg PO QID PRN (Reason: anxiety) mirtazapine 30 mg tablet 30 mg PO QPM oxycodone 10 mg tablet 10 mg PO Q6H PRN (Reason: pain) Xarelto 10 mg tablet 10 mg PO DAILY trazodone 100 mg tablet 100 mg PO QPM PRN (Reason: sleep) cyclobenzaprine 10 mg tablet 10 mg PO TID PRN (Reason: muscle spasm) levothyroxine 75 mcg tablet 75 mcg PO .QD trazodone 50 mg tablet 50 mg PO .QHS PRN (Reason: sleep) Trelegy Ellipta 200-62.5-25 mcg blister with device 1 inh INHALATION Q24H pantoprazole 40 mg tablet,delayed release (DR/EC) 40 mg PO DAILY levofloxacin 750 mg tablet 750 mg PO DAILY 10 Days Qty: 10 0RF prednisone 10 mg tablet See Rx Instructions .ROUTE .COMPLEX 12 Days Qty: 42 0RF Rx Instructions: 6 tabs daily x 2 days, then 5 tabs daily x 2 days, then 4 tabs daily x 2 days, then 3 tabs daily x 2 days, then 2 tabs daily x 2 days, then 1 tab daily x 2 days, then STOP Print Language: Indonesian Referrals: Physician,Non-Staff, MD [Primary Care Provider] - 1 week
[2023-10-29 13:10] LABS: Lactate/Lactic Acid 1.5 mmol/L (0.4-2.0)
[2023-10-29] MEDS: CEFTRIAXONE 1,000 MG in 0.9 % SODIUM CHLORIDE 50 ML 100 MG IV (13:26)
--- NOTE | 2023-10-29 13:47 | PM.HP ---
HPI H&P: HPI History of Present Illness Chief complaint: SOB, HEADACHE, FEVER Narrative: 43-year-old female with past medical history of Hodgkin's lymphoma, restrictive lung disease presented to ER with generalized malaise/weakness, productive cough, headache, shortness of breath with wheezing for past 4 to 5 days. Her symptoms progressively worsened where she could not catch her breath and came to ED for further evaluation. Workup in ER revealed left lower lobe pneumonia, acute respiratory failure with hypoxia with pulse ox as low as 80% on room air. Patient was started on IV Rocephin, azithromycin along with inhaled bronchodilators. At the time of my evaluation, patient was on 3 L oxygen via nasal cannula, appeared diaphoretic, lethargic and was unable to carry on a conversation because of dyspnea. Patient reports that she has not received prednisone or antibiotics since her admission in July earlier this year. She denies any sick contacts. She is feeling slightly better compared to when she came in to ED for evaluation Opioid HPI Opioid Management Most Recent Pain and Opioid Data: Last Pain Scale 8 10/29/23 11:26 Last MAR Pain Assessment 10/29/23 11:26 Last ORT Total Score 1 08/01/23 01:05 Last ORT Risk Category Low Risk 08/01/23 01:05 Review of Systems ROS Status of ROS 10 or more systems reviewed and unremarkable except as noted in history and below [facility] Medical History (Updated 10/29/23 @ 13:53 by Shaikh Lor MD) Hypothyroid ?E03.9 - Hypothyroidism, unspecified (ICD-10) Restrictive lung disease ?J98.4 - Other disorders of lung (ICD-10) 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 - Drug-induced polyneuropathy (ICD-10) ?T45.1X5A - Adverse effect of antineoplastic and immunosuppressive drugs, initial encounter (ICD-10) Hodgkin lymphoma ?C81.90 - Hodgkin lymphoma, unspecified, unspecified site (ICD-10) Insomnia ?G47.00 - Insomnia, unspecified (ICD-10) Tachycardia ?R00.0 - Tachycardia, unspecified (ICD-10) Surgical History (Updated 04/02/23 @ 08:34 by Rosmery Robert) H/O stem cell transplant ?Z94.84 - Stem cells transplant status (ICD-10) Social History (Updated 04/02/23 @ 08:30 by Rosmery Robert) Within the past year, how often did you have a drink containing alcohol: monthly or less Within the past year, how many standard drinks containing alcohol did you have on a typical day: 1 or 2 Within the past year, how often did you have six or more drinks on one occasion: never Total score: 0 Score interpretation: A score less than 3 is consistent with normal alcohol consumption. Smoking status: Never smoker Non-prescribed substance use: denies use Previous occupational history: unemployed Highest level of school completed/degree received: Associate degree: occupational, technical, vocational program Are you now , , , , never or living with a partner: In a typical week, how many times do you talk on the telephone with family, friends, or neighbors: 3 or more times per week How often do you get together with friends or relatives: 3 or more times per week How often do you attend denominational or latter-day services: never Do you belong to any clubs or organizations such as denominational groups unions, [employer] or athletic groups, or school groups: no Total score: 2 Score interpretation: A score of greater than or equal to 2 indicates the lowest level of social isolation. Little interest or pleasure in doing things: not at all Feeling down, depressed, or hopeless: not at all Feel stressed/tense/nervous/anxious/difficulty sleeping: not at all Do you think of yourself as: straight/heterosexual Gender Identity: female Meds Home Medications and Allergies Home Medications ?Medication ?Instructions ?Recorded ?Confirmed ?Type atenolol 50 mg tablet 50 mg PO BID 04/02/23 10/29/23 History cyclobenzaprine 10 mg tablet 10 mg PO BID PRN muscle spasm 04/02/23 10/29/23 History gabapentin 300 mg capsule 600 mg PO TID 04/02/23 10/29/23 History levothyroxine 75 mcg tablet 75 mcg PO .QD 04/02/23 10/29/23 History lorazepam 0.5 mg tablet 0.5 mg PO QID PRN anxiety 04/02/23 10/29/23 History mirtazapine 30 mg tablet 30 mg PO QPM 04/02/23 10/29/23 History oxycodone 10 mg tablet 10 mg PO Q8H PRN pain 04/02/23 10/29/23 History rivaroxaban 10 mg tablet (Xarelto) 10 mg PO DAILY 04/02/23 10/29/23 History trazodone 100 mg tablet 100 mg PO QPM PRN sleep 04/02/23 10/29/23 History trazodone 50 mg tablet 50 mg PO .QHS PRN sleep 04/02/23 10/29/23 History fluticasone fur. 200 mcg-umeclid 1 inh inhalation Q24H 07/31/23 10/29/23 History 62.5 mcg-vilant 25 mcg inhalat.powder (Trelegy Ellipta) pantoprazole 40 mg tablet,delayed 40 mg PO DAILY 07/31/23 10/29/23 History release escitalopram oxalate 10 mg tablet 10 mg PO DAILY 10/29/23 10/29/23 History ipratropium 0.5 mg-albuterol 3 mg 3 ml inhalation Q6H PRN shortness 10/29/23 10/29/23 History (2.5 mg base)/3 mL nebulization of breath or wheezing soln tolterodine 2 mg capsule,extended 2 mg PO Q24H 10/29/23 10/29/23 History release 24 hr Allergies Allergy/AdvReac Type Severity Reaction Status Date / Time NSAIDS (Non-Steroidal AdvReac Mild Unknown Verified 10/29/23 11:05 Anti-Inflamma Sulfa (Sulfonamide AdvReac Mild Rash Verified 10/29/23 10:04 Antibiotics) Exam Constitutional Vital Signs, click to edit/add: Last Vital Signs Temp 99.5 F 10/29/23 09:59 Pulse 107 H 10/29/23 10:31 Resp 20 10/29/23 09:59 BP 119/86 10/29/23 10:01 Pulse Ox 94 L 10/29/23 13:20 O2 Del Method Room Air 10/29/23 11:35 O2 Flow Rate 2 10/29/23 10:31 Common normals: oriented x3 General appearance: cooperative, comfortable, lethargic and ill appearing Respiratory Common normals: normal respiratory effort and no use of accessory muscles Effort & inspection: tachypneic Auscultation: rhonchi left lower and wheezes expiratory wheezes and throughout Cardio Common normals: regular rhythm, S1 normal heart sound and S2 normal heart sound Rate: tachycardic GI Common normals: Normal to inspection, nondistended, normoactive bowel sounds present, soft to palpation, non-tender and no hepatosplenomegaly Extremity Common normals: normal to inspection and full ROM Neuro Common normals: oriented x3, moves all extremities, no focal motor deficits and no sensory deficits noted Psych Common normals: mental status grossly normal, thought process normal, denies homicidal ideation and denies suicidal ideation Results Labs Labs: Short CBC 10/29/23 Range/Units 10:13 WBC 16.0 H (4.0-11.0) 10^3/uL Hgb 14.2 (12.0-16.0) g/dL Hct 42.1 (36.0-48.0) % Plt Count 345 (150-450) 10^3/uL BMP 10/29/23 10:13 Sodium 137 Potassium 3.8 Chloride 101 Carbon Dioxide 28.0 BUN 13.0 Creatinine 0.71 Glucose 104 Calcium 8.8 Liver Function 10/29/23 Range/Units 10:13 Total Bilirubin 0.6 (0.2-1.0) mg/dL AST 28 (15-37) U/L ALT 49 (14-59) U/L Alkaline Phosphatase 80 (46-116) U/L Albumin 3.5 (3.4-5.0) g/dL Urine 10/29/23 Range/Units 11:34 Urine Color Lt. yellow (YELLOW) Urine Clarity Clear (CLEAR) Urine pH 6.0 (5.0-9.0) Ur Specific [place] 1.020 (1.005-1.025) Urine Protein Negative (NEG/TRACE) mg/dL Urine Glucose (UA) Negative (NEGATIVE) mg/dL ABG ABG results: 10/29/23 10:21 VBG pH 7.401 VBG pCO2 42.6 Assessment and Plan Assessment and Plan (1) Sepsis: Assessment and Plan: SIRS (HR > 100, WBC 16K) , source of infection - PNA Check lactic acid levels. F/u blood and sputum cx Started on rocephin. Switch azithromycin to levaquin to cover for Pseudomonas due to high risk conditions Qualifiers: Sepsis type: sepsis due to unspecified organism Sepsis acute organ dysfunction status: without acute organ dysfunction Qualified Code(s): A41.9 - Sepsis, unspecified organism (2) Left lower lobe pneumonia: Assessment and Plan: CT chest ordered to r/o complicated PNA. On rocephin/levaquin. F/u blood and sputum cx Qualifiers: Pneumonia type: due to unspecified organism Qualified Code(s): J18.9 - Pneumonia, unspecified organism (3) Acute respiratory failure with hypoxia: Assessment and Plan: Pulse Ox a low as 80% on RA, patient dyspneic at rest. Wean off as tolerated. C/w IV abx, steroids, duonebs (4) Asthma with COPD with exacerbation: Assessment and Plan: Exacerbation due to LLL PNA. Started on solumedrol/duonebs. (5) Chemotherapy-induced neuropathy: Assessment and Plan: c/w gabapentin (6) Restrictive lung disease: Assessment and Plan: At high risk of poor respiratory outcomes/recurrent lung infections. (7) Hypothyroid: Assessment and Plan: C/w levothyroxine. Qualifiers: Hypothyroidism type: unspecified Qualified Code(s): E03.9 - Hypothyroidism, unspecified
[2023-10-29] MEDS: AZITHROMYCIN 500 MG in 0.9 % SODIUM CHLORIDE 250 ML 250 MG IV (14:06)
--- NOTE | 2023-10-29 15:59 | CT_ITS ---
The [address] [address] Patient Name: CELSO POTTS MRN: [id number] date: 1980 Sex: F Assigned Patient Location: [place] Current Patient Location: Accession/Order Number: [id number] Exam Date: 10/29/2023 16:55 Report Date: 10/29/2023 17:38 At the request of: SHAIKH DILLON Procedure: CT chest wo con EXAMINATION: CT chest wo con, 10/29/2023 4:55 PM EDT HISTORY: r/o parapneumonic complications COMPARISON: Chest radiograph, same date TECHNIQUE: CT scan of the chest was performed without IV contrast. CT dose reduction technique was used, including Automated Exposure Control. FINDINGS: There are multiple small ill-defined groundglass opacities, greatest within the right upper lobe but also seen within the right middle and lower lobes. There is consolidation and bronchiectasis of the left upper lobe, and left lower lobe. There is pleural effusion noted, with an apical pleural catheter and fluid extending into the major fissure on the left. The heart is not enlarged. There is no pericardial effusion. CORONARY ARTERIES: Coronary calcifications are absent. No acute abnormality is seen within the visualized upper abdomen. There are mild degenerative changes within the spine. CT/CT chest wo con IMPRESSION: Left upper and lower lobe airspace disease, with associated bronchiectatic changes. Small left pleural effusion. Ill-defined patchy groundglass opacities throughout the right lung, which may represent atypical/viral pneumonia. Electronically authenticated by: JHOAN RUBY Date: 10/29/2023 17:38
[2023-10-29] MEDS: LACTATED RINGER'S SOLUTION 1,000 ML 125 ML IV (17:28)
[2023-10-29] MEDS: OXYCODONE HCL 5 MG TABLET PO (17:28)
[2023-10-29] MEDS: ACETAMINOPHEN 325 MG TABLET 650 MG PO (18:33)
[2023-10-29] MEDS: MORPHINE SULFATE 2 MG/ML SYRINGE IV (20:24)
[2023-10-29] MEDS: LEVOFLOXACIN IN DEXTROSE 5 % 750 MG/150 ML PREMIX 100 MG IV (20:25)
[2023-10-29] MEDS: ATENOLOL 50 MG TABLET PO (20:25)
[2023-10-29] MEDS: GABAPENTIN 300 MG CAPSULE 600 MG PO (20:25)
[2023-10-29] MEDS: BUDESONIDE 0.5 MG/2 ML AMPULE NEB IH (22:57)
[2023-10-30] VITALS (15 sets, daily range): BP systolic 114–119; BP diastolic 73–82; PULSE 88–115; TEMP 36.6–37.2; O2SAT 80–99
[2023-10-30] MEDS: MORPHINE SULFATE 2 MG/ML SYRINGE IV ×2 (02:03→05:59)
[2023-10-30] MEDS: IPRATROPIUM/ALBUTEROL SULFATE 3 ML AMPUL.NEB IH ×6 (03:25→23:50)
--- NOTE | 2023-10-30 03:28 | PC.NURSE ---
0310 iv restart attempted times 2 one to each hand both with 22guage catheter, both sites without success.
[2023-10-30] MEDS: LACTATED RINGER'S SOLUTION 1,000 ML 125 ML IV (03:29)
[2023-10-30] MEDS: LORAZEPAM 0.5 MG TABLET PO ×3 (04:07→21:27)
[2023-10-30] MEDS: LEVOTHYROXINE SODIUM 75 MCG TABLET PO (05:58)
[2023-10-30] MEDS: OMEPRAZOLE 40 MG CAPSULE.DR PO (05:58)
[2023-10-30 06:16] LABS: Basophils Percent Auto 0.2 % (0.2-2.0); Eosinophils Absolute Auto 0.1 10^3/uL (0.0-0.7); Eosinophils Percent Auto 0.6 % (0.9-7.0); Hematocrit 40.7 % (36.0-48.0); Hemoglobin 13.6 g/dL (12.0-16.0); Immature Granulocytes Abs Auto 0.03 10^3/uL (0.00-0.03); Immature Granulocytes Pct Auto 0.2 % (0.0-0.5); Lymphocytes Absolute Auto 1.3 10^3/uL (1.2-3.8); Lymphocytes Percent Auto 10.1 % (20.5-60.0); Mean Corpuscular HGB Conc 33.4 g/dL (29.9-35.2); Mean Corpuscular Volume 92.7 fL (81.0-99.0); Mean Platelet Volume 9.1 fL (9.5-13.5); Monocytes Absolute Auto 0.9 10^3/uL (0.3-0.8); Monocytes Percent Auto 7.5 % (1.7-12.0); Neutrophils Absolute Auto 10.1 10^3/uL (1.4-6.5); Neutrophils Percent Auto 81.4 % (43.0-75.0); Platelet Count 325 10^3/uL (150-450); Red Blood Count 4.39 10^6/uL (4.20-5.40); Red Cell Distribution Width 13.4 % (11.0-15.0); White Blood Count 12.4 10^3/uL (4.0-11.0)
--- OUTSIDE RECORDS SUMMARY | 2023-10-30 06:32 | XMS_ITS | CCD ---
Author Organization [facility] Care Team Providers Care Sandblast Or Shotblast Equipment Tender Name Role Phone Mary RODRIGUEZ, Abdo Unavailable Nita RODRIGUEZ, Jose A Primary Care Provider [phone] Ellen WALL, Marilyn Unavailable Mary RODRIGUEZ, Antoineo Unavailable Kristina Pete RN Unavailable Unavailable Emely TELEPHONE ANSWERING SERVICE OPERATOR.Juan Francisco VASQUEZ Unavailable Kylie Johnson Unavailable Mary RODRIGUEZ, Abdo Unavailable Nita RODRIGUEZ, Jose A Primary Care Provider Marilyn Hughes RN Unavailable Mary RODRIGUEZ, Abdo Unavailable Juan R WALL, Kristina Unavailable Unavailable Emely TELEPHONE ANSWERING SERVICE OPERATOR.Juan Francisco VASQUEZ Unavailable Kylie Mosher RN Unavailable Unavail able Nita RODRIGUEZ, Jose A Primary Care Provider [phone] Mary RODRIGUEZ, Abdo Unavailable Nita RODRIGUEZ, Jose A Primary Care Provider Marilyn Hughes RN Unavailable Mary RODRIGUEZ, Abdo Unavailable Juan R RN, Kristina Unavailable Unavailable Emely TELEPHONE ANSWERING SERVICE OPERATOR.Juan Francisco VASQUEZ Unavailable Kylie Mosher RN Unavailable Unavail able DR MARIELENA CHAVIRA Primary Care Unavailable IGLESIA MCKEON Admitting Unavailable IGLESIA MCKEON Attending Unavailable IGLESIA MCKEON Consulting Unavailable CONG ALMANZAR Consulting Unavailable DR MARIELENA CHAVIRA Primary Care Unavailable PAY ., DR PARHAM Admitting Unavailable PAY ., DR PARHAM Attending Unavailable BITA ., ZAIRA Consulting Unavailable Emely TELEPHONE ANSWERING SERVICE OPERATOR.INTERNET MARKETING CONSULTANTJuan Francisco Unavailable [phone] Kristina Pete RN Unavailable Unavailable Emely TELEPHONE ANSWERING SERVICE OPERATOR.INTERNET MARKETING CONSULTANT, Juan Francisco Unavailable Kylie Mosher RN Unavailable Unavail able JUAN FRANCISCO HUTCHINSON Attending [...] Primary Care Provider OSCAR Bright Attending Provider Nita RODRIGUEZ Jose A Primary Care Provider Alexsander Ledezma MD Unavailable [phone] [place] TELEPHONE ANSWERING SERVICE OPERATOR.INTERNET MARKETING CONSULTANT, Linette Unavailable [place] TELEPHONE ANSWERING SERVICE OPERATOR.INTERNET MARKETING CONSULTANT, Linette Unavailable [phone] Fabiana Cheatham Unavailable Unavailable Keke Bright Attending Unavailable Kaila, Keke Admitting Unavailable Vail, Jose A Primary Care Unavailable Nita RODRIGUEZ Jose A Unavailable Nita RODRIGUEZ Jose A Primary Care Provider Nita RODRIGUEZ Jose A Primary Care Provider [place] TELEPHONE ANSWERING SERVICE OPERATOR.INTERNET MARKETING CONSULTANT, Linette Unavailable [place] TELEPHONE ANSWERING SERVICE OPERATOR.INTERNET MARKETING CONSULTANT, Linette Unavailable RADHA RUANO Referring Unavailable VAIL, JOSE A Primary Care Unavailable LOY MERINO (PA) Referring Unavailable VAIL, JOSE A Primary Care Unavailable LOY MERINO (PA) Referring Unavailable VAIL, JOSE A Primary Care Unavailable SHEILA LIN Attending Unavailable LINETTE SKINNER Attending Unavailable EMERLINETTE Harrell Attending Unavailable VAIL, JOSE A Referring Unavailable VAIL, JOSE A Attending Unavailable VAIL, JOSE A Attending Unavailable LINETTE SKINNER Attending Unavailable VAIL, JOSE A Referring Unavailable LINETTE SKINNER Attending Unavailable VENEMAN, SHEILA Patel Attending Unavailable VAIL, JOSE A Primary Care Unavailable LOY MERINO Attending Unavailable KYLIE NUNES Referring Unavailable JUAN FRANCISCO HUTCHINSON Attending Unavailable VAIL, JOSE A Primary Care Unavailable JUAN FRANCISCO HUTCHINSON Attending Unavailable VAIL, JOSE A Primary Care Unavailable VAIL, JOSE A Primary Care Unavailable AELXSANDER LEDEZMA Attending Unavailable ALEXSANDER LEDEZMA Referring Unavailable VAIL, JOSE A Primary Care Unavailable VAIL, JOSE A Primary Care Unavailable VAIL, JOSE A Referring Unavailable ALEXSANDER LEDEZMA Attending Unavailable VAIL, JOSE A Primary Care Unavailable PELFREY, RADHA Attending Unavailable VAIL, JOSE A Primary Care Unavailable VAIL, JOSE A Referring Unavailable RAMIRES, ABDO Referring Unavailable VAIL, [...] JOSE A Primary Care Unavailable LOY MERINO Referring Unavailable VAIL, JOSE A Primary Care Unavailable ALEXSANDER LEDEZMA Referring Unavailable VAIL, JOSE A Primary Care Unavailable ROCIO, ELLA Referring Unavailable VAIL, JOSE A Primary Care Unavailable ROCIO, ELLA Referring Unavailable VAIL, JOSE A Primary Care Unavailable JUAN FRANCISCO HUTCHINSON Referring Unavailable LEENA, SIMIN Attending Unavailable VAIL, JOSE A Primary Care Unavailable LEENA, SIMIN Referring Unavailable VAIL, JOSE A Primary Care Unavailable PELFREY, RADHA Referring Unavailable VAIL, JOSE A Primary Care Unavailable ALEXSANDER LEDEZMA Referring Unavailable VAIL, JOSE A Primary Care Unavailable VAIL, JOSE A Referring Unavailable ALEXSANDER LEDEZMA Attending Unavailable VAIL, JOSE A Primary Care Unavailable PELFREYRADHA Attending Unavailable VAIL, JOSE A Referring Unavailable VAIL, JOSE A Primary Care Unavailable JUAN FRANCISCO HUTCHINSON Attending Unavailable VAIL, JOSE A Primary Care Unavailable SHERLY BRUNER Attending Unavaila ble SHERLY BRUNER Referring Unavaila ble VAIL, JOSE A Primary Care Unavailable LOY MERINO Attending Unavailable LOY MERINO Referring Unavailable VAIL, JOSE A Primary Care Unavailable JUAN FRANCISCO HUTCHINSON Attending Unavailable VAIL, JOSE A Primary Care Unavailable VAIL, JOSE A Referring Unavailable ALEXSANDER LEDEZMA Attending Unavailable VAIL, JOSE A Primary Care Unavailable PELFREY, RADHA Attending Unavailable VAIL, JOSE A Referring Unavailable [...] Care Unavailable ALEXSANDER LEDEZMA Attending Unavailable RAMIRES, ABDO Referring Unavailable VAIL, JOSE A Primary Care Unavailable ALEXSANDER LEDEZMA Referring Unavailable VAIL, JOSE A Primary Care Unavailable JUAN FRANCISCO HUTCHINSON Referring Unavailable JUAN FRANCISCO HUTCHINSON Attending Unavailable VAIL, JOSE A Primary Care Unavailable Allergies Allergy Classification Reported Allergen(s) Allergy Type Date of Onset Reaction(s) Facility Chlorhexidine (4 sources) Chlorhexidine; 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: [CHLORHEXIDINE] Drug Allergy 4 Itching [facility] Repository Sulfonamides (antibiotic) (4 sources) Sulfonamides (Antibiotic); 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: [SULFA (SULFONAMIDE ANTIBIOTICS)] Drug Allergy 2 Rash [facility] Repository (20 sources) Chlorhexidine; 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: [CHLORHEXIDINE] Drug Allergy 4 Itching, Unknown [facility] Work Phone: (20 sources) Sulfonamides (Antibiotic); 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: [SULFA (SULFONAMIDE ANTIBIOTICS)] Drug Allergy 2 Rash, Unknown [facility] Work Phone: (2 sources) Sulfacetamide / Sulfur Drug Allergy rash [facility] Other (1 source) Sulfonamides (Antibiotic) Drug allergy (disorder) [facility] Repository (1 source) Sulfacetamide Drug Allergy 3 [facility] Repository (1 source) Sulfur Drug Allergy 3 [facility] Repository Medications Current Medications Medication Drug Class(es) Dates Sig (Normalized) Sig (Original) albuterol 0.833 mg/ml / ipratropium bromide 0.167 mg/ml inhalation solution (20 sources) Anticholinergic, beta2-Adrenergic Agonist Start: 05-31-2023 End: 05-31-2023 ipratropium-albute rol 3 mL nebulizer solution (DUONEB) Start: 05-15-2023 End: 05-29-2023 take 3 mL by inhalation every six hours as needed for wheezing ipratropium-albuterol (DUONEB) 0.5 mg-3 mg(2.5 mg base)/3 mL nebu Indications: Dyspnea on exertion Inhale 3 mL as instructed every 6 hours as needed for wheezing/shortness of breath. 540 mL 1 05/15/2023 05/29/2023 Discontinued Start: 05-14-2023 End: 08-13-2023 ipratropium-albuterol (DUONE B) 0.5 mg-3 mg(2.5 mg base)/3 mL nebu Indications: Dyspnea on exertion inhale contents of 1 vial ( 3 MILLILITERS ) in nebulizer by mouth and INTO THE LUNGS every 6 hours if needed for wheezing or shortness of breath 1620 mL 5 08/14/2023 Active Start: 06-15-2022 take 3 mL by [...] needed for wheezing or shortness of breath albuterol-budesonid e HFA (AIRSUPRA) 90-80 mcg/actuation inhaler (14 sources) Start: 09-12-19 24 albuterol-budesoni de HFA (AIRSUPRA) 90-80 mcg/actuation inhaler Take 2 Puffs by mouth every 4 hours as needed for wheezing/shortness of breath. Do not take more than 12 inhalations in a 24 hour period. 10.7 g 3 09/12/2023 Active amoxicillin 875 mg / clavulanate 125 mg oral tablet (1 source) Penicillin-class Antibacterial Start: 06-05-19 End: 06-12-19 23 take 1 tablet by mouth twice daily amoxicillin-clavul anic acid (AUGMENTIN) 875-125 mg per tablet Indications: [...] jaleesa th twice a day bifidobacterium animalis [id number] unt / lactobacillus acidophilus [id number] unt oral capsule (2 sources) Start: 10-03-2021 Probiotic Product (Probiotic Daily) capsule 1 (one) time each day at the same time. 0 10/03/2021 Active biotin 2.5 mg oral capsule (20 sources) Start: 05-07-2016 Biotin 2,500 mcg cap 05/07/2016 Active CHOLECALCIFEROL, VITAMIN D3, (VITAMIN D3 ORAL) (20 sources) take 1000 [IU] by mouth once daily CHOLECALCIFEROL, VITAMIN D3, (VITAMIN D3 ORAL) Take 1,000 Units by mouth once daily. Active take 1000 [IU] by mouth once clifton ly CHOLECALCIFEROL, VITAMIN D3, (VITAMIN D3 ORAL) Take 1,000 Units by mouth once daily. 0 Active Comment on above: Take 1,000 Units by mouth once daily. cyclobenzaprine hydrochloride 10 mg oral tablet (20 sources) Muscle Relaxant Start: 07-11-19 End: 10-30-19 take 1 tablet by mouth twice daily as needed for muscle spasms cyclobenzaprine (FLEXERIL) 10 mg tablet Indications: Muscle cramps , Nodular sclerosing Hodgkin's lymphoma, unspecified body region (HCC) Take 1 tablet by mouth two times a day as needed for muscle spasm. 60 tablet 09/30/2023 10/30/2023 Active Start: 12-03-2022 End: 2023 take 1 [...] a day as needed for muscle spasm. doxycycline hyclate 100 mg oral capsule (20 sources) Tetracycline-clas s Drug Start: 05-31-2023 End: 06-05-2023 take 1 capsule by mouth twice daily [...] once daily. Take 1 capsule by mo ut twice daily for 7 days. Take 1 capsule by mo uth twice daily. Take 1 capsule by mo uth two times a day for 5 days. escitalopram 10 mg oral tablet (12 sources) Serotonin Reuptake Inhibitor Start: 09-19-19 End: 12-18-19 take 0.5 tablet by mouth once daily escitalopram oxalate (LEXAPRO) 10 mg tablet Take 0.5 tablets by mouth once daily. 45 tablet 09/19/2023 12/18/2023 Active fluconazole 100 mg oral tablet (3 sources) Azole Antifungal Start: 06-13-19 End: 06-20-19 24 take 1 tablet by mouth once daily [...] sources) Corticosteroid, beta2-Adrenergic Agonist Start: take 1 dose by inhalation once daily [...] in-vilanter (TRELEGY ELLIPTA) 200-62.5-25 mcg inhalation powder (20 sources) Start: take 1 puff(s) by inhalation once daily fluticasone-umeclid in-vilanter (TRELEGY ELLIPTA) 200-62.5-25 mcg inhalation powder Indications: Dyspnea on exertion , Bronchitis Inhale 1 Puff as instructed once daily. 60 Each 3 08/23/2023 Active Start: 06-17-2023 End: 08-22-2023 take 1 puff(s) by inhalation once daily fottdqrjnxy-nuqllgmba-xwvqeaey (TRELEGY ELLIPTA) 200-62.5-25 mcg inhalation powder Indications: Dyspnea on exertion , Bronchitis Inhale 1 Puff as instructed once daily. 60 Each 3 06/17/2023 08/22/2023 Discontinued Start: 06-17-2023 take 1 puff(s) by inhalation once daily nkawjnlrklo-kogfelznz-notjgzbe (TRELEGY ELLIPTA) 200-62.5-25 mcg inhalation powder Indications: Dyspnea on exertion , Bronchitis Inhale 1 Puff as instructed once daily. 60 Each 3 06/17/2023 Active gabapentin 300 mg oral capsule (20 sources) Anti-epileptic Agent Start: 09-19-2023 End: 12-18-2023 take 2 capsules by mouth three times daily gabapentin (NEURONTIN) 300 mg capsule Take 2 capsules by mouth three times a day for 90 days. 09/19/2023 12/18/2023 Active Start: 12-31-2022 take 1 capsule by mo uth in the morning, then take 1 capsule [...] topical cream (2 sources) Azole Antifungal Start: 02-13-2022 ketoconazole (NIZOral) 2 % cream Apply 1 application topically 1 (one) time each day at the same time. 0 02/13/2022 Active Lactobac no.41/Bifidobact no.7 (PROBIOTIC-10 ORAL) (20 sources) Lactobac no.41/Bifidobact no.7 (PROBIOTIC-10 ORAL) Take by mouth. Active Lactobac no.41/B ifidobact no.7 (PROBIOTIC-10 ORAL) Take by mouth. 0 Active Comment on above: Take by mouth. levoFLOXacin 750 mg oral tablet (20 sources) Quinolone Antimicrobial Start: 08-01-19 End: 09-02-19 take 1 tablet by mouth once daily levoFLOXacin (LEVAQUIN) 750 mg tablet Take 1 tablet by mouth once daily for 7 days. 7 tablet 0 08/26/2023 09/02/2023 Active Start: 06-10-2023 End: 2023 take 1 tablet by mouth once daily levoFLOXacin (LEVAQUIN) 750 mg tablet Take 1 tablet by mouth once daily. 10 tablet 0 06/10/2023 2023 Discontinued (Course of therapy completed) levothyroxine sodium 0.075 mg oral tablet (20 sources) l-Thyroxine Start: 10-12-2019 End: 08-14-2023 take 1 tablet by mouth once daily levothyroxine (SYNTHROID) 75 mcg tablet Take 1 tablet by mouth once daily. 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 90 tablet 09/30/2023 10/17/2023 Discontinued Start: 05-13-2023 End: 2023 take 1 tablet [...] pantoprazole 40 mg delayed release oral tablet (20 sources) Proton Pump Inhibitor Start: End: take 1 tablet by mouth once daily pantoprazole DR (PROTONIX) 40 mg tablet Take 1 tablet by mouth once daily. 90 tablet 1 05/22/2023 Active Comment on above: Take 1 tablet by jaleesa once daily. perflutren lipid microspheres 1.3 mL [...] day for 2 day(s) Jan, Active predniSONE 10 mg oral tablet (20 sources) Start: End: take 4 tablets by mouth once daily, then take 3 tablets by mouth once daily, then take 2 tablets by mouth once daily, then take 1 tablet by mouth once daily predniSONE (DELTASONE) 10 mg tablet Take 4 tablets by mouth once daily for 3 days, THEN 3 tablets once daily for 3 days, THEN 2 tablets once daily for 3 days, THEN 1 tablet once daily for 3 days. 30 tablet 0 08/26/2023 09/06/2023 Active Start: 08-01-2023 End: 08-26-2023 predniSONE (DELTASONE) 10 mg tablet take 6 tablets by mouth daily for 2 days then take 5 tablets zuri... (REFER TO PRESCRIPTION NOTES). 0 08/01/2023 08/26/2023 Discontinued Start: 05-31-2023 End: 06-05-2023 take 2 tablets by mouth once daily [...] mo ut twice daily for 90 days. prochlorperazine 10 [...] INHALE 2 PUFFS DI RECTED ONCE DAILY 24 hr tolterodine tartrate 2 mg extended release oral capsule (8 sources) Cholinergic Muscarinic Antagonist Start: take 1 capsule by mouth once daily tolterodine ER (DETROL LA) 2 mg 24 hr capsule Take 2 mg by mouth once daily. 08/26/2023 Active traZODone hydrochloride 100 mg oral tablet (20 sources) Serotonin Reuptake Inhibitor Start: 4 take 1 tablet by mouth every twenty-four hours as needed traZODone (DESYREL) 100 mg tablet Take 100 mg by mouth at bedtime as needed. AT BEDTIME. 09/22/2023 Active Start: 02-04-2023 traZODone (Jaleel yrel) 100 MG tablet Indications: Insomnia, unspecified type Take 1 tablet (100 mg) by mouth as needed at bedtime for sleep 90 tablet 3 02/04/2023 Active End: 10-09-2023 take 2 tablets by mouth once daily at bedtime traZODone (DESYREL) 50 mg tablet Take 100 mg by mouth daily at bedtime. 10/09/2023 Discontinued Comment on above: Take 100 mg by mouth daily at bedtime. triamcinolone acetonide 10 mg/ml injectable suspension (20 sources) Corticosteroid Start: 09-05-2021 End: 09-06-2021 triamcinolone acetonide 5 mg injection (KeNALog 10) Start: 07-28-2021 End: 07-28-2021 triamcinolone acetonide 10 m g injection (KeNALog 10) Start: 10-06-2019 triamcinolone acetonide (KENALOG) 0.1 % ointment APPLY TO THE AFFECTED AREA TWICE A DAY FOR 5 DAYS 10/06/2019 Active Comment on above: APPLY TO THE AFFECTE D AREA TWICE A DAY FOR 5 DAYS Vitamin B Comp and C No.3 (B COMPLEX PLUS VITAMIN C) 78-04-76-5-300 mg cap (20 sources) Start: 08-11-2019 Vitamin B Comp and C No.3 (B COMPLEX PLUS VITAMIN C) 26-14-43-5-300 mg cap Take 1 tablet by mouth once daily. 30 capsule 3 08/11/2019 Active Comment on above: Take 1 tablet by jaleesa th once daily. Completed/Discontinued Medications Medication Drug Class(es) [...] tablet by jaleesa th twice a day [id number] 200 actuat albuterol 0.09 mg/actuat metered dose [...] PRESCRIPTION NOTES). inhale 2 puffs by mo [facility] INTO THE LUNGS every 6 hours Inhale 2 Puffs as in structed every 4 hours as needed for wheezing/shortness of breath. amoxicillin 875 mg oral tablet (2 sources) Penicillin-class Antibacterial Start: 02-03-20 take 1 tablet by mouth every twelve hours Amoxicillin 875 MG 1 tablet Orally every 12 hrs for 7 days Jan, Not-Taking/PRN azelastine hydrochloride 0.137 mg/actuat metered dose nasal spray (20 sources) Histamine-1 Receptor Antagonist Start: 03-28-19 End: 07-11-19 take 1 spray(s) nasal route twice daily azelastine 0.1% nasal spray Use 1 Ailey in each nostril two times a day. 30 mL 0 03/28/2023 2023 Discontinued Comment on above: Use 1 Ailey in each nostril two times a day. azithromycin 250 mg oral tablet (20 sources) Macrolide Antimicrobial Start: 04-19-19 End: 06-13-19 take 2 tablets by mouth once daily, then take 1 tablet by mouth once daily azithromycin (ZITHROMAX Z-RON) 250 mg tablet Indications: Influenza with pneumonia Two (2) tablets by mouth the first day and then one (1) tablet by mouth daily for 4 days. 6 tablet 0 04/19/2023 06/13/2023 Discontinued (Course of therapy completed) Start: 05-19-2021 take 2 tablets by mo [facility] once daily, then take 1 tablet by [...] for 4 days. Two (2) tablets by [facility] the first day and then one (1) [...] jaleesa twice daily. Take 1 tablet by jaleesa three times a day. betamethasone 3 mg/ml / betamethasone acetate 3 mg/ml injectable suspension (2 sources) Corticosteroid Start: End: betamethasone acetate-betamethasone sodium phosphate 6 mg injection (CELESTONE) chlorhexidine gluconate 40 mg/ml medicated liquid soap [...] 1 capsule by mo ut once daily. diclofenac sodium 0.01 mg/mg topical gel (20 sources) Nonsteroidal Anti-inflammatory Drug Start: 07-11-19 End: 10-09-19 apply 4 g topically four times daily diclofenac (VOLTAREN) 1 % topical gel Indications: Arthritis pain Apply 4 g to affected area four times daily. 480 g 2 2023 10/09/2023 Discontinued DULoxetine 30 mg delayed release oral capsule (4 sources) Serotonin and Norepinephrine Reuptake Inhibitor Start: 04-12-19 End: 05-18-19 take 1 capsule by mouth once daily for anxiety DULoxetine (CYMBALTA) 30 mg capsule Indications: Encounter for palliative care , Anxiety Take 1 capsule by mouth once daily. 30 capsule 1 04/12/2021 05/17/2021 Discontinued Comment on above: Take 1 capsule by mo [facility] once daily. fluticasone propionate 0.05 mg/actuat metered dose nasal spray (9 sources) Corticosteroid Start: 06-13-19 End: 07-11-19 take 1 spray(s) nasal route once daily fluticasone (FLONASE ALLERGY RELIEF) 50 mcg/actuation nasal spray Indications: Acute non-recurrent pansinusitis Use 1 Ailey in each nostril once daily. 11.1 mL [...] times daily as needed. Prescribed by PCP 10 ml lidocaine hydrochloride 10 mg/ml injection (2 sources) Antiarrhythmic, Amide Local Anesthetic Start: 08-27-2023 End: 08-27-2023 lidocaine (PF) 10 mg/mL (1 %) 1 mL injection (XYLOCAINE) methylPREDNISolone 4 mg oral tablet (2 sources) Corticosteroid Start: 02-02-2021 methylPREDNISolone 4 MG as directed Orally Once a day for 6 days Jan, Not-Taking/PRN mirtazapine 30 mg oral tablet (20 sources) Start: 05-22-2022 End: 10-17-2023 take 7.5 mg by mouth once daily at bedtime mirtazapine (REMERON) 30 mg tablet Take 7.5 mg by mouth daily at bedtime. 05/22/2022 10/17/2023 Discontinued Start: 05-22-2022 mirtazapine (R EMERON) 30 mg tablet Take 15 mg by mouth daily at bedtime. 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 Do not start before March 12, 2021. 90 tablet 0 03/12/2021 05/17/2021 Discontinued Comment on above: Take 1 tablet by [facility] three times daily as needed for up [...] Date Documented Da te Episodic/Chronic Anxiety disorders (6 sources) Anxiety; 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: [Anxiety disorder, unspecified] Onset: 01-25-2022 Chronic Asthma (4 sources) Asthma; 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: [Unspecified asthma, uncomplicated] Onset: 08-13-2022 08-13-2022 Chronic Chronic obstructive pulmonary disease and bronchiectasis (20 sources) Simple chronic bronchitis; 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: [Simple chronic [...] mouth; 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: [Candidal stomatitis] 06-13-2023 Episodic Osteoarthritis (2 sources) Unspecified osteoarthritis, unspecified site; 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: [Arthropathy, unspecified, site unspecified] 2023 Chronic Other aftercare (20 sources) Patient encounter status; 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: [Encounter for palliative care] Episodic Other aftercare (1 source) Other detention (current) drug therapy; 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: [OTH IMAGERY INTELLIGENCE CURRENT DRUG THERAPY] Onset: 06-22-2022 Episodic Other aftercare (2 sources) Under care of palliative care physician; 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: [Encounter for palliative care] Episodic Other and unspecified benign neoplasm (1 source) Benign neoplasm of skin of lower limb; 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: [Other benign neoplasm of skin of left lower limb, including hip] Episodic Other connective tissue disease (20 sources) Cramp; 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: [Cramp and spasm] Episodic Other connective tissue disease (1 source) Radial styloid tenosynovitis; Translations: [Radial styloid tenosynovitis [de Quervain]] 08-27-2023 Episodic Other endocrine disorders (1 source) Adrenal cortical hypofunction; Translations: [Unspecified adrenocortical insufficiency] 01-28-2023 Chronic Other gastrointestinal disorders (6 sources) Dysphagia; Translations: [Dysphagia, unspecified] 03-28-2023 Episodic Other inflammatory condition of skin (20 sources) Psoriasis vulgaris; Translations: [Psoriasis vulgaris] Onset: 04-18-2018 04-18-2018 Chronic Other inflammatory condition of skin (20 sources) Psoriatic arthritis; Translations: [Arthropathic psoriasis, unspecified] Onset: 12-20-2022 12-20-2022 Chronic Other inflammatory condition of skin (4 sources) Psoriasis; Translations: [Psoriasis, unspecified] Onset: 08-23-2022 01-01-2023 Chronic Other lower respiratory disease (7 sources) Dyspnea on exertion; Translations: [Other forms [...] sources) Wheezing; Translations: [Wheezing] 05-31-2023 Episodic Other nervous system disorders (20 [...] [Chemotherapy-induced neuropathy (HCC)] Onset: 04-25-2016 Chronic Other nervous system disorders (2 sources) Chronic nonmalignant pain; Translations: [Other chronic pain] 08-12-2023 Chronic Other nervous system disorders (1 source) Chronic pain syndrome; Translations: [Chronic pain syndrome] 10-17-2023 Chronic Other non-traumatic joint disorders (1 source) Pain in unspecified joint; Translations: [Polyarthralgia] Onset: 10-09-2023 Episodic Other nutritional; endocrine; and metabolic disorders (20 [...] [Nasal congestion] Episodic Other upper respiratory disease (5 sources) Hoarse; Translations: [Dysphonia] Onset: 08-23-2022 03-28-2023 Episodic Phlebitis; thrombophlebitis and thromboembolism (1 source) H/O: Deep vein thrombosis; Translations: [Personal history of other venous thrombosis and embolism] 01-01-2023 Episodic Pleurisy; pneumothorax; pulmonary collapse (2 sources) Pleural effusion; Translations: [Pleural effusion, not elsewhere classified] 06-13-2023 Episodic Pulmonary heart disease (20 sources) Pulmonary hypertension; Translations: [Pulmonary hypertension, unspecified] Onset: 08-12-2023 06-14-2023 Chronic Residual codes; unclassified (20 sources) [...] Onset: 8 03-15-2017 Episodic Cancer of cervix (20 sources) Low grade squamous intraepithelial lesion on cervical Papanicolaou smear; Translations: [Low grade squamous intraepithelial lesion on cytologic smear of cervix (LGSIL)] Onset: 5 Resolved: 0 12-25-2019 Episodic Cardiac dysrhythmias (20 sources) Tachycardia; Translations: [Tachycardia, unspecified] Onset: 4 Resolved: 6 08-23-2022 Episodic Chronic obstructive pulmonary disease and bronchiectasis (8 sources) Bronchitis, not specified as acute or chronic; Translations: [Bronchitis] Onset: 1 Resolved: 1 Episodic Diabetes mellitus with complications (20 sources) Secondary diabetes mellitus; 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] Onset: 5 Resolved: 6 12-26-2015 Chronic E Codes: Adverse effects of medical drugs (1 source) Adverse effect of antineoplastic and immunosuppressive drugs, initial encounter; 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)] Onset: 7 Episodic Esophageal disorders (20 sources) Gastroesophageal reflux disease; Translations: [Gastro-esophageal reflux disease without esophagitis] Onset: 6 Resolved: 6 08-23-2022 Chronic Fluid and electrolyte disorders (20 sources) Disorder of fluid AND/OR electrolyte; Translations: [Other disorders of electrolyte and fluid balance, not elsewhere classified] Onset: 3 Resolved: 6 12-26-2015 Episodic Genitourinary symptoms and ill-defined conditions (20 sources) Dysuria; Translations: [Dysuria] Onset: 5 Resolved: 6 Episodic HIV infection (20 sources) T-lymphocyte immunodeficiency; 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, unspecified] Onset: 5 Resolved: 6 12-26-2015 Chronic Immunizations and screening for infectious disease (1 source) Contact with and (suspected) exposure to other viral communicable diseases Onset: 1 Resolved: 1 Episodic Lung disease due to external agents (20 sources) Radiation pneumonitis; Translations: [Acute pulmonary manifestations due to radiation] Onset: 5 Resolved: 6 02-13-2021 Episodic Malaise and fatigue (20 sources) Cancer-related fatigue; Translations: [Neoplastic (malignant) related fatigue] Onset: 6 Resolved: 8 Episodic Menopausal disorders (20 sources) Postmenopausal state; Translations: [Hormone replacement therapy] Onset: 5 Resolved: 6 02-13-2021 Episodic Menstrual disorders (20 sources) Menorrhagia; Translations: [Excessive and frequent menstruation with regular cycle] Onset: 8 Resolved: 8 01-01-2018 Chronic Nausea and vomiting (20 sources) Nausea; Translations: [Nausea] Onset: 4 Resolved: 6 Episodic Nonspecific chest pain (20 sources) Tight chest; Translations: [Other chest pain] Onset: 4 Resolved: 6 Episodic Nutritional deficiencies (20 sources) Vitamin D deficiency; Translations: [Vitamin D deficiency, unspecified] Onset: 6 Resolved: 6 08-23-2022 Chronic Other aftercare (20 sources) Drug therapy finding; 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: [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] Onset: 3 Episodic Other aftercare (1 source) jail (current) use of anticoagulants; Translations: [SKILLED NURSING CURRNT USE ANTICOAGULANTS] Onset: 2 Episodic Other aftercare (1 source) jail (current) use of opiate analgesic; Translations: [Opioid use agreement exists] Onset: 2 Episodic Other aftercare (1 source) Encounter for palliative care; Translations: [Encounter for palliative care] Onset: 2 Episodic Other aftercare (20 sources) Post-discharge follow-up; Translations: [Encounter for follow-up examination after completed treatment for conditions other than malignant neoplasm] Onset: 4 Resolved: 6 04-19-2023 Episodic Other connective tissue disease (1 source) Cramp and spasm; Translations: [Muscle cramps] Onset: 2 Episodic Other connective tissue disease (20 sources) Pain in left arm; Translations: [Pain in left arm] Onset: 4 Resolved: 6 12-26-2015 Episodic Other connective tissue disease (20 sources) Other symptoms and signs involving the musculoskeletal system; Translations: [Other musculoskeletal symptoms referable to limbs] Onset: 5 Resolved: 6 12-26-2015 Episodic Other connective tissue disease (20 sources) Muscle pain; Translations: [Myalgia, unspecified site] Onset: 6 Resolved: 6 12-26-2015 Episodic Other female genital disorders (20 sources) Vaginal bleeding; Translations: [Abnormal uterine and vaginal bleeding, unspecified] Resolved: 6 02-13-2021 Chronic Other female genital disorders (20 sources) Dyspareunia; Translations: [Dyspareunia] Resolved: 6 12-26-2015 Chronic Other gastrointestinal disorders (20 sources) Diarrhea; Translations: [Diarrhea, unspecified] Onset: 4 Resolved: 6 02-13-2021 Episodic Other gastrointestinal disorders (2 sources) Dysphagia, unspecified; Translations: [Dysphagia, unspecified type] Onset: 4 Episodic Other hematologic conditions (20 sources) ESR raised; Translations: [Elevated erythrocyte sedimentation rate] Onset: 4 Resolved: 6 12-26-2015 Episodic Other inflammatory condition of skin (3 sources) Erythematous condition, unspecified; Translations: [ERYTHEMATOUS CONDITION UNSPECIFIED] Onset: 2 Episodic Other liver diseases (20 sources) Finding of creatine kinase level; Translations: [Abnormal levels of other serum enzymes] Onset: 6 Resolved: 6 12-26-2015 Episodic Other liver diseases (20 sources) Enzyme level - finding; Translations: [Abnormal [...] [Restrictive lung disease] Onset: 6 Episodic Other lower respiratory disease (1 source) Wheezing; Translations: [Wheezing] Onset: 4 Episodic Other lower respiratory disease (1 source) Shortness of breath Onset: 4 Episodic Other nervous system disorders (20 sources) Radiation injury of peripheral nerve; 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] Onset: 1 Resolved: 4 10-18-2020 Chronic Other nervous system disorders (20 sources) Peripheral nerve disease ; Translations: [Polyneuropathy, unspecified] Onset: 4 Resolved: 6 02-13-2021 Chronic Other nervous system disorders (20 sources) Postoperative pain ; Translations: [Other acute postprocedural pain] Onset: 3 Resolved: 6 02-13-2021 Episodic Other nervous system disorders (20 sources) Abnormal gait; Translations: [Unspecified abnormalities of gait and mobility] Onset: 5 Resolved: 6 12-26-2015 Episodic Other non-traumatic joint disorders (20 sources) Arthralgia of the ankle and/or foot; Translations: [Pain in unspecified ankle and joints of unspecified foot] Onset: 5 Resolved: 6 12-26-2015 Episodic Other non-traumatic joint disorders (20 sources) Pain in right knee; Translations: [Pain in joint, lower leg] Onset: 6 Resolved: 6 12-26-2015 Episodic Other non-traumatic joint disorders (20 sources) Multiple joint pain; Translations: [Pain in unspecified joint] Onset: 6 Resolved: 6 12-26-2015 Episodic Other screening for suspected conditions (not mental disorders or infectious disease) (20 sources) Imaging result abnormal; Translations: [Abnormal findings on diagnostic imaging of other specified body structures] Onset: 4 Resolved: 6 12-26-2015 Chronic Other screening for suspected conditions (not mental disorders or infectious disease) (20 sources) Other specified abnormal findings of blood chemistry; Translations: [Other abnormal blood chemistry] Onset: 4 Resolved: 6 02-13-2021 Episodic Other skin disorders (20 sources) Hidradenitis suppurativa; Translations: [Hidradenitis suppurativa] Onset: 6 Resolved: 8 Episodic Other skin disorders (20 sources) Hyperpigmentation of skin; Translations: [Disorder of pigmentation, unspecified] Onset: 4 Resolved: 6 02-13-2021 Episodic Other upper respiratory disease (1 source) Dysphonia; Translations: [Hoarseness] Onset: 4 Episodic Other upper respiratory infections (20 sources) Posterior rhinorrhea; Translations: [Postnasal drip] Onset: 6 Resolved: 6 03-28-2023 Episodic Otitis media and related conditions (1 source) Otitis media, unspecified, bilateral Onset: 1 Resolved: 1 Episodic Pneumonia (except that caused by tuberculosis or sexually transmitted disease) (20 sources) Pneumocystosis pneumonia; Translations: [Pneumocystosis] Onset: 5 Resolved: 6 12-26-2015 Episodic Poisoning by other medications and drugs (20 sources) Oral mucositis (ulcerative) due to antineoplastic therapy; Translations: [Mucositis (ulcerative) due to antineoplastic therapy] Onset: 4 Resolved: 6 02-13-2021 Episodic Pulmonary heart disease (20 sources) Pulmonary embolism; Translations: [Other pulmonary embolism without acute cor pulmonale] Onset: 3 Resolved: 8 02-13-2021 Episodic Residual codes; unclassified (20 sources) Insomnia; Translations: [Insomnia, unspecified] Onset: 4 Resolved: 6 08-23-2022 Episodic Residual codes; unclassified (20 sources) Abnormal cytology findings; Translations: [ASCUS favor dysplasia] Onset: 5 Resolved: 6 12-26-2015 Episodic Respiratory failure; insufficiency; arrest (adult) (20 sources) Acute hypoxemic respiratory failure; Translations: [Acute [...] Spondylosis; intervertebral disc disorders; other back problems (20 sources) Backache; Translations: [Dorsalgia, unspecified] Onset: 4 Resolved: 6 12-26-2015 Episodic Sprains and strains (20 sources) Sprain of left ankle; Translations: [Sprain of unspecified ligament of left ankle, initial encounter] Onset: 5 Resolved: 6 12-26-2015 Episodic Unclassified (20 sources) DISPOSITION AND FOLLOW-UP Onset: 3 Resolved: 6 02-13-2021 Unclassified (20 sources) Drug therapy finding; Translations: [DVT prophylaxis] Onset: 4 Resolved: 6 02-13-2021 Unclassified (20 sources) Reflux; Translations: [Reflux] Onset: 4 Resolved: 6 02-13-2021 Results Test Name Value Interpretation Reference Range Facility OXIMETRY WITH AMBULATIONon 0 10-15-2023 Anh Weber, JULIANO 10/15/2023 10:46 AM RESPIRATORY THERAPY OXIMETRY WITH AMBULATION Oximetry with Ambulation Test for This Encounter O2 Device O2 Adapter NC O2 Flow SpO2% HR Activity Ft Walked (ft) Time (min) Avg Speed (MPH) R/A 98 93 Resting R/A 93 114 Walking, usual pace 535 3 2.03 R/A 98 98 Resting R/A 92 121 Walking, fastest pace 705 3 2.67 General Information Pulse Oximetry Site Total Time Spent Walking Assistance/O2 Supply Carrier Forehead 30 None NAME: Anh Weber RRT PATIENT NAME: Celso Potts DATE: October 15, 2023 TIME: 10:45 AM Comment: [facility] No Panel Informationon 10-08 Radiology Study observation (narrative) [facility] XR Foot - bilateral AP and L ateral and obliqueon 10-09-2023 IMPRESSION: 1. No erosive arthropathy 2. Bilateral calcaneal enthesophytes Letter Sorting Machine Operator: PSCB Transcribe Date/Time: Oct 09 2023 2:40P Dictated by : SHANNEN HILLIARD MD This examination was interpreted and the report reviewed and electronically signed by: SHANNEN HILLIARD MD on Oct 09 2023 2:42PM [facility] DIVISION OF RADIOLOGY * * *Final Report* * * DATE OF EXAM: Oct 09 2023 12:14PM [id number] - XR FOOT 3V AP/LAT/OBL MAJO / PROCEDURE REASON: Polyarthralgia * * * * Physician Interpretation * * * * Bilateral foot radiographs HISTORY: Polyarthralgia TECHNIQUE: 5 views of both feet COMPARISON: 11/11/2018 FINDINGS: Metatarsophalangeal joints and toes are intact. Chronic cortical thickening at the right third metatarsal diaphysis laterally suggesting chronic stress changes or remote healed fracture. Midfoot alignment is preserved bilaterally. Ankle and subtalar joints are intact. Small calcaneal enthesophytes. DIVISION OF RADIOLOGY Provider[facility]/09/[facility] * * *Final Report* * * DATE OF EXAM: Oct 09 2023 12:14PM [id number] - XR FOOT 3V AP/LAT/OBL MAJO / PROCEDURE REASON: Polyarthralgia * * * * Physician Interpretation * * * * Bilateral foot radiographs HISTORY: Polyarthralgia TECHNIQUE: 5 views of both feet COMPARISON: 11/11/2018 FINDINGS: Metatarsophalangeal joints and toes are intact. Chronic cortical thickening at the right third metatarsal diaphysis laterally suggesting chronic stress changes or remote healed fracture. Midfoot alignment is preserved bilaterally. Ankle and subtalar joints are intact. Small calcaneal enthesophytes. IMPRESSION IMPRESSION: 1. No erosive arthropathy 2. Bilateral calcaneal enthesophytes Letter Sorting Machine Operator: DEDE Transcribe Date/Time: Oct 09 2023 2:40P Dictated by : SHANNEN HILLIARD MD This examination was interpreted and the report reviewed and electronically signed by: SHANNEN HILLIARD MD on Oct 09 2023 2:42PM [facility] XR Hand - bilateral PA and L ateral and Obliqueon 10-09-2023 IMPRESSION: 1. Minimal osteoarthritis Letter Sorting Machine Operator: PSCB Transcribe Date/Time: Oct 09 2023 2:39P Dictated by : SHANNEN HILLIARD MD This examination was interpreted and the report reviewed and electronically signed by: SHANNEN HILLIARD MD on Oct 09 2023 2:40PM [facility] DIVISION OF RADIOLOGY * * *Final Report* * * DATE OF EXAM: Oct 09 2023 12:14PM [id number] - XR HAND 3V PA/LAT/OBL MAJO / PROCEDURE REASON: Polyarthralgia * * * * Physician Interpretation * * * * Bilateral hand radiographs HISTORY: Polyarthralgia TECHNIQUE: 3 views of both hands COMPARISON: None available FINDINGS: Mild narrowing of the interphalangeal joints diffusely. Metacarpophalangeal joints are intact. Minimal osteophytes at the scaphotrapezial and first carpometacarpal joint bilaterally. Soft tissues are unremarkable. DIVISION OF RADIOLOGY Provider, Richard jacob [place] - 10/09/2023 * * *Final Report* * * DATE OF EXAM: Oct 09 2023 12:14PM [id number] - XR HAND 3V PA/LAT/OBL MAJO / PROCEDURE REASON: Polyarthralgia * * * * Physician Interpretation * * * * Bilateral hand radiographs HISTORY: Polyarthralgia TECHNIQUE: 3 views of both hands COMPARISON: None available FINDINGS: Mild narrowing of the interphalangeal joints diffusely. Metacarpophalangeal joints are intact. Minimal osteophytes at the scaphotrapezial and first carpometacarpal joint bilaterally. Soft tissues are unremarkable. IMPRESSION IMPRESSION: 1. Minimal osteoarthritis Letter Sorting Machine Operator: [facility] Transcribe Date/Time: Oct 09 2023 2:39P Dictated by : SHANNEN HILLIARD MD This examination was interpreted and the report reviewed and electronically signed by: SHANNEN HILLIARD MD on Oct 09 2023 2:40PM EST [facility] XR Knee - bilateral 4 Viewso n 10-09-2023 IMPRESSION: 1. Mild patellofemoral osteoarthritis Letter Sorting Machine Operator: PSCB Transcribe Date/Time: Oct 09 2023 2:42P Dictated by : SHANNEN HILLIARD MD This examination was interpreted and the report reviewed and electronically signed by: SHANNEN HILLIARD MD on Oct 09 2023 2:43PM [facility] DIVISION OF RADIOLOGY * * *Final Report* * * DATE OF EXAM: Oct 09 2023 12:14PM [id number] - XR KNEE 4V AP/PA/LAT/MERCH MAJO / PROCEDURE REASON: Polyarthralgia * * * * Physician Interpretation * * * * Bilateral knee radiographs HISTORY: Polyarthralgia TECHNIQUE: 5 views of both knees COMPARISON: 06/25/2013 FINDINGS: Knee joint spaces are preserved. Mild patellar osteophytes bilaterally. No fracture, erosions or avascular necrosis. Bone island in the left proximal tibia medially. No joint effusions. DIVISION OF RADIOLOGY Provider, [facility] - 10/09/2023 * * *Final Report* * * DATE OF EXAM: Oct 09 2023 12:14PM [id number] - XR KNEE 4V AP/PA/LAT/MERCH MAJO / PROCEDURE REASON: Polyarthralgia * * * * Physician Interpretation * * * * Bilateral knee radiographs HISTORY: Polyarthralgia TECHNIQUE: 5 views of both knees COMPARISON: 06/25/2013 FINDINGS: Knee joint spaces are preserved. Mild patellar osteophytes bilaterally. No fracture, erosions or avascular necrosis. Bone island in the left proximal tibia medially. No joint effusions. IMPRESSION IMPRESSION: 1. Mild patellofemoral osteoarthritis Letter Sorting Machine Operator: [facility] Transcribe Date/Time: Oct 09 2023 2:42P Dictated by : SHANNEN HILLIARD MD This examination was interpreted and the report reviewed and electronically signed by: SHANNEN HILLIARD MD on Oct 09 2023 2:43PM [facility] XR Sacroiliac Joint Viewson 10-09-2023 IMPRESSION: 1. Mild degenerative changes at sacroiliac joints. No active sacroiliitis evident Letter Sorting Machine Operator: [facility] Transcribe Date/Time: Oct 09 2023 2:37P Dictated by : SHANNEN HILLIARD MD This examination was interpreted and the report reviewed and electronically signed by: SHANNEN HILLIARD MD on Oct 09 2023 2:39PM [facility] DIVISION OF RADIOLOGY * * *Final Report* * * DATE OF EXAM: Oct 09 2023 12:14PM [id number] - XR SI JTS 2V AP PELV/NEELY / PROCEDURE REASON: Polyarthralgia * * * * Physician Interpretation * * * * Sacroiliac joint radiographs HISTORY: Polyarthralgia TECHNIQUE: 2 views of the sacroiliac joints COMPARISON: None available FINDINGS: No sacroiliac joint erosions, reactive sclerosis or bone fusion. Mild inferior osteophytes. The remainder the sacrum and coccyx appear intact. Mild bilateral hip joint space narrowing superiorly and osteophytes. Small femoral head bone islands. DIVISION OF RADIOLOGY Provider, [facility] - 10/09/2023 * * *Final Report* * * DATE OF EXAM: Oct 09 2023 12:14PM [id number] - XR SI JTS 2V AP BERT/FLORINDA / PROCEDURE REASON: Polyarthralgia * * * * Physician Interpretation * * * * Sacroiliac joint radiographs HISTORY: Polyarthralgia TECHNIQUE: 2 views of the sacroiliac joints COMPARISON: None available FINDINGS: No sacroiliac joint erosions, reactive sclerosis or bone fusion. Mild inferior osteophytes. The remainder the sacrum and coccyx appear intact. Mild bilateral hip joint space narrowing superiorly and osteophytes. Small femoral head bone islands. IMPRESSION IMPRESSION: 1. Mild degenerative changes at sacroiliac joints. No active sacroiliitis evident Letter Sorting Machine Operator[facility] Transcribe Date/Time: Oct 09 2023 2:37P Dictated by : SHANNEN HILLIARD MD This examination was interpreted and the report reviewed and electronically signed by: SHANNEN HILLIARD MD on Oct 09 2023 2:39PM [facility] XR Sacroiliac Joint ViewsOrd ered By: [facility] Provider on 10-09-2023 [facility] Additional Injections: R ext ensor compartment 1on 08-27-2023 Alex Bruner PA-C 08/27/2023 8:19 AM Additional Injections: R extensor compartment 1 for de Quervain's tenosynovitis Informed Consent Consent Obtained: Verbal [place] Protocol A moment to CARE was completed. SIGN IN Personnel directly involved with the procedure wore the appropriate PPE. Special Equipment: N/A Patient/Surrogate Stated/Verified: Patient name, Date of , Intended procedure and Relevant allergies TIME OUT Intended patient and procedure match the source document(s). Consent documented and matches the intended procedure. Relevant labs, photos, and/or imaging studies have been reviewed. Correct side/site marked and visible. Medications required for procedure verified. No fire risk assessment and interventions applicable. No implant(s) inserted. 08/27/2023 8:18 AM The procedure site was prepped in the usual sterile fashion. Medications: 6 mg betamethasone acetate-betamethasone sodium phosphate 6 mg/mL Anesthetics: 1 mL lidocaine (PF) 10 mg/mL (1 %) Outcome: tolerated well, no immediate complications Post-injection instructions were reviewed with the patient and the patient voiced understanding of these instructions. SIGN OUT No specimen collected. No instruments, equipment or retained foreign bodies applicable. Post-procedure follow-up management communicated and Plan of Care Visit completed when applicable [facility] CBC W Auto Differential pane l (Bld)on 08-05-2023 Basophils (Bld) [#/Vol] 0.03 10*3/uL [facility] Basophils/100 WBC (Bld) 0.2 % [facility] Differential cell count method Nom (Bld) Auto [facility] Eosinophils (Bld) [#/Vol] 0.09 10*3/uL [facility] Eosinophils/100 WBC (Bld) 0.6 % [facility] Erythrocyte distribution width (RBC) [Ratio] 12.8 % 11.5 - 15.0 % [facility] Hematocrit (Bld) [Volume fraction] 42.8 % 36.0 - 46.0 % [facility] Hemoglobin (Bld) [Mass/Vol] 14.1 g/dL 11.5 - 15.5 g/dL [facility] Immature granulocytes (Bld) [#/Vol] 0.20 10*3/uL High [facility] Immature granulocytes/100 WBC (Bld) 1.3 % [facility] Interpretation and review of laboratory results Abnormal [facility] Lymphocytes (Bld) [#/Vol] 2.35 10*3/uL [facility] Lymphocytes/100 WBC (Bld) 15.0 % [facility] MCH (RBC) [Entitic mass] 31.1 pg 26.0 - 34.0 pg [facility] MCHC (RBC) [Mass/Vol] 32.9 g/dL 30.5 - 36.0 g/dL [facility] MCV (RBC) [Entitic vol] 94.5 fL 80.0 - 100.0 fL [facility] Monocytes (Bld) [#/Vol] 0.84 10*3/uL [facility] Monocytes/100 WBC (Bld) 5.4 % [facility] Neutrophils (Bld) [#/Vol] 12.14 10*3/uL High [facility] Neutrophils/100 WBC (Bld) 77.5 % [facility] Nucleated RBC (Bld) [#/Vol] [facility] Nucleated RBC/100 WBC (Bld) [Ratio] 0.0 % /100 WBC [facility] Platelet mean volume (Bld) [Entitic vol] 9.2 fL 9.0 - 12.7 fL [facility] Platelets (Bld) [#/Vol] 332 10*3/uL [facility] RBC (Bld) [#/Vol] 4.53 10*6/uL 3.90 - 5.2 0 m/uL [facility] WBC (Bld) [#/Vol] 15.65 10*3/uL [facility] Comprehensive metabolic 2000 panelOrdered By: Saran Johnson on 08-05-2023 Albumin [Mass/Vol] 3.9 g/dL 3.9 - 4.9 g/dL [facility] ALP [Catalytic activity/Vol] 69 U/L 34 - 123 U/L [facility] ALT [Catalytic activity/Vol] 58 U/L High 7 - 38 U/L [facility] Anion gap [Moles/Vol] 10 mmol/L 8 - 15 mmol/L [facility] AST [Catalytic activity/Vol] 25 U/L 13 - 35 U/L [facility] Bilirubin [Mass/Vol] 0.5 mg/dL 0.2 - 1 .3 mg/dL [facility] Calcium [Mass/Vol] 9.7 mg/dL 8.5 - 10. 2 mg/dL [facility] Chloride [Moles/Vol] 103 mmol/L 98 - 10 7 mmol/L [facility] CO2 [Moles/Vol] 29 mmol/L 22 - 30 mmol/L [facility] Creatinine [Mass/Vol] 0.90 mg/dL 0.58 - 0.96 mg/dL [facility] GFR/1.73 sq M.predicted among non-blacks MDRD (S/P/Bld) [Vol rate/Area] 83 mL/min/{1.73_m2} - PINF [facility] Comment on above: Estimated Glomerular Filtration [...] not accurately reflect actual GFR. Glucose [Mass/Vol] 109 mg/dL High 74 - 99 mg/dL [facility] Comment on above: The [place] [employer] (ADA) provides guidance for [...] Standards of Medical Care in Diabetes 2016, [place] [employer]. Diabetes Care. 2016.39(Suppl 1). Interpretation and review of laboratory results Abnormal [facility] Potassium [Moles/Vol] 3.6 mmol/L Low 3.7 - 5.1 mmol/L [facility] Protein [Mass/Vol] 6.7 g/dL 6.3 - 8.0 g/dL [facility] Sodium [Moles/Vol] 142 mmol/L 136 - 144 mmol/L [facility] Urea nitrogen [Mass/Vol] 15 mg/dL 7 - 21 mg/dL [facility] ESR Westergren method (Bld) [Velocity]on 08-05-2023 ESR (Bld) [Velocity] 17 mm/h [facility] Interpretation and review of laboratory results Normal [facility] XR Esophagus Views W lara doris Prado 07-19-2023 IMPRESSION: NORMAL ESOPHAGRAM. Letter Sorting Machine Operator: DEDE Transcribe Date/Time: Jul 19 2023 2:16P Dictated by : ADDIS SUTTON MD This examination was interpreted and the report reviewed and electronically signed by: ALEXSANDER PLASCENCIA MD on Jul 19 2023 2:33PM [facility] DIVISION OF RADIOLOGY * * *Final Report* [...] the procedure. DIVISION OF RADIOLOGY Provider, [facility] - 07/19/2023 * * *Final Report* [...] of the procedure. IMPRESSION IMPRESSION: NORMAL ESOPHAGRAM. Letter Sorting Machine Operator: DEDE Transcribe Date/Time: Jul 19 2023 2:16P Dictated by : ADDIS SUTTON MD This examination was interpreted and the report reviewed and electronically signed by: ALEXSANDER PLASCENCIA MD on Jul 19 2023 2:33PM EST [facility] Radiology Study observation (narrative) [facility] XR Esophagus Views W daniloandie doris Cejaed By: Ccf Provider on 07-19-2023 [facility] CNTHERAPYon 07-10-2023 CNTHERAPY OT/PT/Speech Visit (SPMBAV) CELSO POTTS ([id number]) 1980 F Date Time Provider Department 07/10/23 1:00 PM CYNTHIA GUAJARDO SPMBAV Date Time Provider Department Center 07/10/2023 1:00 PM [id number], MELANIE [facility] Reason for Visit: Speech Instrumental Swallow Eval [3660] Speech Discharge [3488] Primary Visit Diagnosis:Dysphagia, unspecified type [R13.10] Allergies As of Date: 07/10/2023 Noted Allergy Reaction CHLORHEXIDINE 03/11/2013 9 - Itching Comments: Severe skin irritation. Had used for central line care SULFA (SULFONAMIDE ANTIBIOTICS) 01/07/2012 2 - Rash Date Reviewed: 06/28/2023 Reviewed by: Nadir Rowan LPN - Fully Assessed Prescriptions as of 07/10/2023 - uwqpexkdjxl-emwvccsnw-r ilanter (TRELEGY ELLIPTA) 200-62.5-25 mcg inhalation powder Inhale 1 Puff as instructed once daily. - fluticasone (FLONASE ALLERGY RELIEF) 50 mcg/actuation nasal spray Use 1 Ailey in each nostril once daily. - oxyCODONE [...] - azelastine 0.1% nasal spray Use 1 Ailey in each nostril two times a day. [...] C No.3 (B COMPLEX PLUS VITAMIN C) 36-35-10-5-300 mg cap Take 1 tablet by mouth [...] she will be off of it soon. Normal [facility] RF videography Hypopharynx a nd Esophagus Views W liquid and paste contrast PO during swallowingon 07-10-2023 IMPRESSION: THE VIC POON PATHOLOGIST REPORT AND RECOMMENDATIONS ARE PRESENT IN THE NOTES COMPONENT OF [facility] Letter Sorting Machine Operator: PSCB Transcribe Date/Time: Jul 10 2023 3:06P Dictated by : ERIC GREENFIELD MD This examination was interpreted and the report reviewed and electronically signed by: ERIC GREENFIELD MD on Jul 10 2023 3:06PM [facility] * * *Final Report* * * [...] a swallowing evaluation by the speech pathologist. [facility] Provider, Richard Dorsey - 07/10/2023 * * *Final Report* * [...] ARE PRESENT IN THE NOTES COMPONENT OF [facility] Letter Sorting Machine Operator: PSCB Transcribe Date/Time: Jul 10 2023 3:06P Dictated by : ERIC GREENFIELD MD This examination was interpreted and the report reviewed and electronically signed by: ERIC GREENFIELD MD on Jul 10 2023 3:06PM EST [facility] Radiology Study observation (narrative) [facility] RF videography Hypopharynx a nd Esophagus Views W liquid and paste contrast PO during swallowingOrdered By: Ccf Provider on 07-10-2023 [facility] XR MOD BARIUM SWALLOW W SPEE [...] PRESENT IN THE NOTES COMPONENT OF [facility] Letter Sorting Machine Operator: DEDE Transcribe Date/Time: Jul 10 2023 3:06P Dictated by : ERIC GREENFIELD MD This examination was interpreted and the report reviewed and electronically signed by: ERIC GREENFIELD MD on Jul 10 2023 3:06PM EST [id number] Normal [facility] CBC W Auto Differential pane l (Bld)on 06-10-2023 Basophils (Bld) [#/Vol] 0.03 10*3/uL [facility] Basophils/100 WBC (Bld) 0.3 % [facility] Differential cell count method Nom (Bld) Auto [facility] Eosinophils (Bld) [#/Vol] 0.08 10*3/uL [facility] Eosinophils/100 WBC (Bld) 0.7 % [facility] Erythrocyte distribution width (RBC) [Ratio] 14.2 % 11.5 - 15.0 % [facility] Hematocrit (Bld) [Volume fraction] 44.1 % 36.0 - 46.0 % [facility] Hemoglobin (Bld) [Mass/Vol] 14.6 g/dL 11.5 - 15.5 g/dL [facility] Immature granulocytes (Bld) [#/Vol] 0.06 10*3/uL [facility] Immature granulocytes/100 WBC (Bld) 0.5 % [facility] Interpretation and review of laboratory results Abnormal [facility] Lymphocytes (Bld) [#/Vol] 2.11 10*3/uL [facility] Lymphocytes/100 WBC (Bld) 18.3 % [facility] MCH (RBC) [Entitic mass] 31.5 pg 26.0 - 34.0 pg [facility] MCHC (RBC) [Mass/Vol] 33.1 g/dL 30.5 - 36.0 g/dL [facility] MCV (RBC) [Entitic vol] 95.2 fL 80.0 - 100.0 fL [facility] Monocytes (Bld) [#/Vol] 0.67 10*3/uL NINF [facility] Monocytes/100 WBC (Bld) 5.8 % [facility] Neutrophils (Bld) [#/Vol] 8.55 10*3/uL High [facility] Neutrophils/100 WBC (Bld) 74.4 % [facility] Nucleated RBC (Bld) [#/Vol] NINF [facility] Nucleated RBC/100 WBC (Bld) [Ratio] 0.0 % /100 WBC [facility] Platelet mean volume (Bld) [Entitic vol] 8.8 fL Low 9.0 - 12.7 fL [facility] Platelets (Bld) [#/Vol] 312 10*3/uL [facility] RBC (Bld) [#/Vol] 4.63 10*6/uL 3.90 - 5.2 0 m/uL [facility] WBC (Bld) [#/Vol] 11.50 10*3/uL [facility] Comprehensive metabolic 2000 panelOrdered By: Zaira Rivera on 06-10-2023 Albumin [Mass/Vol] 4.1 g/dL 3.9 - 4.9 g/dL [facility] ALP [Catalytic activity/Vol] 71 U/L 34 - 123 U/L [facility] ALT [Catalytic activity/Vol] 41 U/L High 7 - 38 U/L [facility] Anion gap [Moles/Vol] 14 mmol/L 9 - 18 mmol/L [facility] AST [Catalytic activity/Vol] 27 U/L 13 - 35 U/L [facility] Bilirubin [Mass/Vol] 0.5 mg/dL 0.2 - 1 .3 mg/dL [facility] Calcium [Mass/Vol] 9.5 mg/dL 8.5 - 10. 2 mg/dL [facility] Chloride [Moles/Vol] 104 mmol/L 97 - 10 5 mmol/L [facility] CO2 [Moles/Vol] 24 mmol/L 22 - 30 mmol/L [facility] Creatinine [Mass/Vol] 0.74 mg/dL 0.58 - 0.96 mg/dL [facility] GFR/1.73 sq M.predicted among non-blacks MDRD (S/P/Bld) [Vol rate/Area] 105 mL/min/{1.73_m2} - PINF [facility] Comment on above: Estimated Glomerular Filtration [...] 137 mg/dL High 74 - 99 mg/dL [facility] Comment on above: The [place] Diabete s Association (ADA) provides guidance for [...] Standards of Medical Care in Diabetes 2016, [place] Diabetes Association. Diabetes Care. 2016.39(Suppl 1). Interpretation and review of laboratory results Abnormal [facility] Potassium [Moles/Vol] 3.9 mmol/L 3.7 - 5.1 mmol/L [facility] Protein [Mass/Vol] 6.6 g/dL 6.3 - 8.0 g/dL [facility] Sodium [Moles/Vol] 142 mmol/L 136 - 144 mmol/L [facility] Urea nitrogen [Mass/Vol] 19 mg/dL 7 - 21 mg/dL [facility] ESR Westergren method (Bld) [Velocity]on 06-10-2023 ESR (Bld) [Velocity] 5 mm/h [facility] Interpretation and review of laboratory results Normal [facility] IMMUNOGLOBULIN Lorenzo IgG [Mass/Vol] 836 mg/dL 700 - 1600 mg/dL [facility] IgG [Mass/Vol]on 06-10-2023 Interpretation and review of laboratory results Normal [facility] T4/FTI/T4Uon 06-10-2023 FTI 8.4 ug/dL 5.3 - 10.8 ug/dL [facility] Interpretation and review of laboratory results Normal [facility] T4 [Mass/Vol] 8.3 ug/dL 5.5 - 10.2 ug/dL [facility] T4 uptake [Mass/Vol] 0.99 0.91 - 1.19 [place] THYROID STIMULATING HORMONEo n 06-10-2023 TSH Qn 0.445 m[IU]/L [facility] Comment on above: If the patient [...] Lopes, et al. 2017 Guidelines of the [place] Thyroid Association for the Diagnosis and Management of Thyroid Disease during and the . Thyroid, 2017:27:3:315-389. TSH Qnon 06-10-2023 Interpretation and review of laboratory results Normal [facility] XR Chest PA and Lateralon [facility] XR CHEST 2V FRONTAL/LATon XR CHEST [...] and soft tissues: Unremarkable. IMPRESSION: See result. Letter Sorting Machine Operator: PSCB Transcribe Date/Time: Apr 21 2023 5:48A Dictated by : KOLE KEARNEY MD This examination was interpreted and the report reviewed and electronically signed by: KOLE KEARNEY MD on Apr 21 2023 5:49AM EST [id number] Normal [facility] NITRIC OXIDE, EXHALEDon 02-0 [facility] Urinalysis - AUTOMATEDon Appearance (U) clear [employer] Other Bilirubin Ql (U) Negative [employer] Other Color (U) bright yellow [employer] Other Glucose Ql (U) Negative [employer] Other Hemoglobin Ql (U) Negative [employer] Other Ketones Ql (U) Negative [employer] Other Leukocyte esterase Test strip Ql (U) trace [employer] Other Nitrite Ql (U) Negative [employer] Other pH (U) 6.0 [pH] [employer] Other Protein Ql (U) Negative [employer] Other Specific gravity (U) [Rel density] 1.010 [employer] Other Urobilinogen (U) [Mass/Vol] 0.2 mg/dL [employer] Other Urinalysis - AUTOMATED [employer] Other Urine Cultureon 01-29-2023 Bacteria identified Cx Nom (U) Reason for Exam Dysuria Urine Reason for Exam: Dysuria : Urine ORGANISM: Escherichia coli (O:ESCCOL) Commerce Count >100,000 Aerobic RICARDO Charge (NMIC56) -- [...] RESISTANT TO ALL B-LACTAM DRUGS. PERFORMED BY: [address] [place] [address] PATHOLOGIST CLINICAL PRODUCT MANAGER MARGARITA HAYWOOD M.D. [facility] Comment on above: Performed By: #### C UU #### [facility] [address] CORTISOL BLDon 01-02-2023 Cortisol [Mass/Vol] 1.6 ug/dL Low 4.8 - 19 .5 ug/dL [facility] ESR Westergren method (Bld) [Velocity]on 01-02-2023 ESR (Bld) [Velocity] 2 mm/h 0 - 20 mm/hr Cl [facility] T4/FTI/T4Uon 01-02-2023 FTI 7.5 ug/dL 5.3 - 10.8 ug/dL [facility] T4 [Mass/Vol] 7.6 ug/dL 5.5 - 10.2 ug/dL [facility] T4 uptake [Mass/Vol] 1.01 0.91 - 1.19 [facility] TSH BLDon 01-02-2023 TSH Qn 1.820 m[IU]/L 0.270 - 4.200 mIU/L [facility] CBC W Auto Differential pane l (Bld)on 01-01-2023 Basophils (Bld) [#/Vol] <0.11 k/uL [facility] Basophils/100 WBC (Bld) 0.2 % [facility] Differential cell count method Nom (Bld) Auto [facility] Eosinophils (Bld) [#/Vol] 0.21 10*3/uL <0.46 k/uL [facility] Eosinophils/100 WBC (Bld) 2.6 % [facility] Erythrocyte distribution width (RBC) [Ratio] 13.8 % 11.5 - 15.0 % [facility] Hematocrit (Bld) [Volume fraction] 44.6 % 36.0 - 46.0 % [facility] Hemoglobin (Bld) [Mass/Vol] 14.6 g/dL 11.5 - 15.5 g/dL [facility] Immature granulocytes (Bld) [#/Vol] 0.08 10*3/uL <0.10 k/uL [facility] Immature granulocytes/100 WBC (Bld) 1.0 % [facility] Lymphocytes (Bld) [#/Vol] 2.56 10*3/uL 1.00 - 4.00 k/uL [facility] Lymphocytes/100 WBC (Bld) 32.0 % [facility] MCH (RBC) [Entitic mass] 31.1 pg 26.0 - 34.0 pg [facility] MCHC (RBC) [Mass/Vol] 32.7 g/dL 30.5 - 36.0 g/dL [facility] MCV (RBC) [Entitic vol] 94.9 fL 80.0 - 100.0 fL [facility] Monocytes (Bld) [#/Vol] 0.62 10*3/uL <0.87 k/uL [facility] Monocytes/100 WBC (Bld) 7.7 % [facility] Neutrophils (Bld) [#/Vol] 4.52 10*3/uL 1.45 - 7.50 k/uL [facility] Neutrophils/100 WBC (Bld) 56.5 % [facility] Nucleated RBC (Bld) [#/Vol] <0.01 k/uL [facility] Nucleated RBC/100 WBC (Bld) [Ratio] 0.0 /100 WBC [facility] Platelet mean volume (Bld) [Entitic vol] 9.0 fL 9.0 - 12.7 fL [facility] Platelets (Bld) [#/Vol] 320 10*3/uL 150 - 400 k/uL [facility] RBC (Bld) [#/Vol] 4.70 10*6/uL 3.90 - 5.2 0 m/uL [facility] WBC (Bld) [#/Vol] 8.01 10*3/uL 3.70 - 11. 00 k/uL [facility] Comprehensive metabolic 2000 panelon 01-01-2023 Albumin [Mass/Vol] 4.5 g/dL 3.9 - 4.9 g/dL [facility] ALP [Catalytic activity/Vol] 93 U/L 34 - 123 U/L [facility] ALT [Catalytic activity/Vol] 49 U/L High 7 - 38 U/L [facility] Anion gap [Moles/Vol] 9 mmol/L 9 - 18 mmol/L [facility] AST [Catalytic activity/Vol] 38 U/L High 13 - 35 U/L [facility] Bilirubin [Mass/Vol] 0.2 mg/dL 0.2 - 1 .3 mg/dL [facility] Calcium [Mass/Vol] 9.6 mg/dL 8.5 - 10. 2 mg/dL [facility] Chloride [Moles/Vol] 102 mmol/L 97 - 10 5 mmol/L [facility] CO2 [Moles/Vol] 28 mmol/L 22 - 30 mmol/L [facility] Creatinine [Mass/Vol] 0.68 mg/dL 0.58 - 0.96 mg/dL [facility] Estimated Glomerular Filtration Rate 113 mL/min/1.73m >=60 mL/min/1.73m [facility] Glucose [Mass/Vol] 102 mg/dL High 74 - 99 mg/dL [facility] Potassium [Moles/Vol] 4.4 mmol/L 3.7 - 5.1 mmol/L [facility] Protein [Mass/Vol] 7.3 g/dL 6.3 - 8.0 g/dL [facility] Sodium [Moles/Vol] 139 mmol/L 136 - 144 mmol/L [facility] Urea nitrogen [Mass/Vol] 9 mg/dL 7 - 21 mg/dL [facility] LD LACTATE DEHYDROon 023 LDH [Catalytic activity/Vol] 283 U/L High 135 - 214 U/L [facility] MAGNESIUM BLDon 01-01-2023 Magnesium [Mass/Vol] 2.5 mg/dL High 1.7 - 2 .3 mg/dL [facility] CNOVon 12-20-2022 CNOV Office Visit (PMAE ) CELSO POTTS ([id number]) 1980 F Date Time Provider Department 12/20/22 10:[address] [facility] [facility] During your visit today, we recorded the following information about you: Temperature Pulse Blood pressure Weight 97.9 degrees 103/minute 119/82 101.2 kg Juan Francisco Hutchinson APRN.CNP 12/20/2022 1:10 PM Signed PALLIATIVE MEDICINE PROGRESS NOTE SERVICE DATE: 12/20/2022 Primary Site of Disease/Medical Illness: Hodgkin Lymphoma CHIEF COMPLAINT: follow up PERTINENT MEDICAL HISTORY: Celso PachecoNancy Janee is a 42 yo female with a [...] [place]. Keeps well hydrated because dehydration has always made these symptoms worse. She is taking gabapentin 600 mg TID. Also taking oxycodone 10 mg 3-4 times per day Denies confusion, oversedation, myoclonus, constipation Fatigued but does not sleep during the day Going out with friends and keeping busy as much as she can Modified ESAS (Sidney Symptom Assessment Scale) Information Provided By: Patient [...] modalities? Yes (more content not included)... Normal [facility] CNNURSEon 10-18-2022 CNNURSE Nurse Visit (AMDERM) CELSO POTTS ([id number]) 1980 F Date Time Provider Department 10/18/22 10:30 AM NURSE ANGEL [facility] During your visit today, we recorded the [...] for comfort Referring Provider: JUAN FRANCISCO HUTCHINSON [[id number]] Allergies As of Date: 10/18/2022 Noted Allergy Reaction CHLORHEXIDINE 03/11/2013 9 - Itching Comments: Severe skin irritation. Had used for central line care SULFA (SULFONAMIDE ANTIBIOTICS) 01/07/2012 2 - Rash Date Reviewed: 10/18/2022 Reviewed by: Juan Francisco Hutchinson APRN.INTERNET MARKETING CONSULTANT - Fully Assessed Reason for Visit: LESION, [...] C No.3 (B COMPLEX PLUS VITAMIN C) 04-02-22-5-300 mg cap Take 1 tablet by mouth once daily. - Dexlansoprazol (more content not included)... [facility] ) CELSO POTTS ([id number]) 1980 F Date Time Provider Department 10/18/22 11:30 AM JUAN FRANCISCO HUTCHINSON [facility] During your visit today, we recorded the [...] Denies confusion, oversedation, myoclonus, constipation. Modified ESAS (Sidney Symptom Assessment Scale) Information Provided By: Patient [...] 10/18/2022 by (more content not included)... [facility] CELSO POTTS ([id number]) 1980 F Date Time Provider Department 10/18/22 KYLIE MOSHER [facility] During your visit today, we recorded the following information about you: Kylie Mosher RN 10/18/2022 3:19 PM Addendum Prior Authorization Documentation Prior authorization requested via Covermymeds for the following medication: Medication: Lyrica 100 mg capsules Approved and authorizes your coverage from 02/18/2022 - 02/17/2023, Insurance Company Name: [employer] Phone number: [phone] Patient ID number: [id number] Da Silva [id number] Pharmacy Name: [facility] Telephone number: [phone] Kylie Mosher RN October 18, 2022 1:38 PM Allergies As of Date: 10/18/2022 Noted Allergy Reaction CHLORHEXIDINE 03/11/2013 9 - Itching Comments: Severe skin irritation. Had used for central line care SULFA (SULFONAMIDE ANTIBIOTICS) 01/07/2012 2 - Rash Date Reviewed: 10/18/2022 Reviewed by: Juan Francisco Hutchinson APRN.INTERNET MARKETING CONSULTANT - Fully Assessed Reason for Visit: Insurance [...] C No.3 (B COMPLEX PLUS VITAMIN C) 83-08-88-5-300 mg cap Take 1 tablet by mouth [...] Insomnia [G47.00] (more content not included)... Normal [facility] CBC AUTO DIFFon 06-21-2022 BASO # 0.0 103/ul Normal 0.0-0.1 [facility] Comment on above: Performed By: #### C BC #### [facility] [address] [place] [address] Dr. Kristina Morales Basophils/100 WBC (Bld) 0.4 % Normal 0.2-2.0 [facility] Comment on above: Performed By: #### C BC #### [facility] [address] [place] [address] Dr. Kristina Morales EO # 0.2 103/ul Normal 0.0-0.7 [facility] Comment on above: Performed By: #### C BC #### [facility] [address] [place] [address] Dr. Kristina Morales Eosinophils/100 WBC (Bld) 2.9 % Normal 0.9-7.0 [facility] Comment on above: Performed By: #### C BC #### [facility] [address] [place] [address] Dr. Kristina Morales Erythrocyte distribution width (RBC) [Ratio] 13.7 % Normal 11.0-15.0 [facility] Comment on above: Performed By: #### C BC #### [facility] [address] [place] [address] Dr. Kristina Morales Hematocrit (Bld) [Volume fraction] 44.2 % Normal 36.0-48.0 [facility] Comment on above: Performed By: #### C BC #### [facility] [address] [place] [address] Dr. Kristina Morales Hemoglobin (Bld) [Mass/Vol] 14.9 g/dL Normal 12.0-16.0 [facility] Comment on above: Performed By: #### C BC #### [facility] [address] [place] [address] Dr. Kristina Morales IG # 0.02 10e3/ul Normal 0.00-0.03 [facility] Comment on above: Performed By: #### C BC #### [facility] [address] [place] [address] Dr. Kristina Morales IG % 0.3 % Normal 0.0-0.5 [facility] Comment on above: Performed By: #### C BC #### [facility] [address] [place] [address] Dr. Kristina Morales LYMPH # 2.0 103/ul Normal 1.2-3.8 [facility] Comment on above: Performed By: #### C BC #### [facility] [address] [place] [address] Dr. Kristina Morales Lymphocytes/100 WBC (Bld) 27.8 % Normal 20.5-60.0 [facility] Comment on above: Performed By: #### C BC #### [facility] [address] [place] [address] Dr. Kristina Morales MANUAL DIFF REQ NO Normal [facility] Comment on above: Performed By: #### C BC #### [facility] [address] [place] [address] Dr. Kristina Morales MCH (RBC) [Entitic mass] 32.0 pg Normal 26.7-34.0 [facility] Comment on above: Performed By: #### C BC #### [facility] [address] [place] [address] Dr. Kristina Morales MCHC (RBC) [Mass/Vol] 33.7 g/dL Normal 29.9-35.2 [facility] Comment on above: Performed By: #### C BC #### [facility] [address] [place] [address] Dr. Kristina Morales MCV (RBC) [Entitic vol] 94.8 fL Normal 81.0-99.0 [facility] Comment on above: Performed By: #### C BC #### [facility] [address] [place] [address] Dr. Kristina Morales MONO # 0.7 103/ul Normal 0.3-0.8 [facility] Comment on above: Performed By: #### C BC #### [facility] [address] [place] [address] Dr. Kristina Morales Monocytes/100 WBC (Bld) 9.5 % Normal 1.7-12.0 [facility] Comment on above: Performed By: #### C BC #### [facility] [address] [address] [address] Kristina Morales NEUT # 4.2 103/ul Normal 1.4-6.5 [facility] Comment on above: Performed By: #### C BC #### [facility] [address] [place] [address] Dr. Kristina Morales Neutrophils/100 WBC (Bld) 59.1 % Normal 43.0-75.0 [facility] Comment on above: Performed By: #### C BC #### [facility] [address] [place] [address] Dr. Kristina Morales Platelet mean volume (Bld) [Entitic vol] 9.1 fL Critically low 9.5-13.5 [facility] Comment on above: Performed By: #### C BC #### [facility] [address] [place] [address] Dr. Kristina Morales PLT 302 103/ul Normal 150-450 [facility] Comment on above: Performed By: #### C BC #### [facility] [address] [place] [address] Dr. Kristina Morales RBC 4.66 106/ul Normal 4.20-5.40 [facility] Comment on above: Performed By: #### C BC #### [facility] [address] [place] [address] Dr. Kristina Morales WBC 7.2 103/ul Normal 4.0-11.0 [facility] Comment on above: Performed By: #### C BC #### [facility] [address] [place] [address] Dr. Kristina Morales CRPon 06-21-2022 CRP 2.2 mg/dL Critically high <=1.0 [facility] Comment on above: Performed By: #### C RP, BMP #### [facility] [address] [place] [address] HEAD WO CONon [...] CONG ALMANZAR Date: 2022-06-21 05:34 Normal [facility] PROF CHEM 8 (BAS METB)on Anion gap [Moles/Vol] 11.9 mmol/L Normal [facility] Comment on above: Performed By: #### C RP, BMP #### [facility] [address] [place] [address] Dr. Kristina Morales Calcium [Mass/Vol] 9.5 mg/dL Normal 8.5-10.1 [facility] Comment on above: Performed By: #### C RP, BMP #### [facility] [address] [place] [address] Dr. Kristina Morales Chloride [Moles/Vol] 106 mmol/L Normal 98-107 [facility] Comment on above: Performed By: #### C RP, BMP #### [facility] [address] [place] [address] Dr. Kristina Morales CO2 [Moles/Vol] 26.7 mmol/L Normal 21.0-32.0 [facility] Comment on above: Performed By: #### C RP, BMP #### [facility] [address] [place] [address] Dr. Kristina Morales Creatinine [Mass/Vol] 0.91 mg/dL Normal 0.55-1.02 [facility] Comment on above: Performed By: #### C RP, BMP #### [facility] [address] [place] [address] Dr. Kristina Morales EGFR-AF MAURITANIAN >60 Normal >=60 [facility] Comment on above: Performed By: #### C RP, BMP #### [facility] [address] [place] [address] Dr. Kristina Morales EGFR-NON AF MAURITANIAN >60 Normal >=60 [facility] Comment on above: Performed By: #### C RP, BMP #### [facility] [address] [address] [address] Kristina Morales Glucose [Mass/Vol] 118 mg/dL Critically high 74-106 T [facility] Comment on above: Performed By: #### C RP, BMP #### [facility] [address] [address] [address] Kristina Morales Potassium [Moles/Vol] 3.6 mmol/L Normal 3.5-5.1 [facility] Comment on above: Performed By: #### C RP, BMP #### [facility] [address] [address] [address] Kristina Morales Sodium [Moles/Vol] 141 mmol/L Normal 136-145 [facility] Comment on above: Performed By: #### C RP, BMP #### [facility] [address] [address] [address] Kristina Morales Urea nitrogen [Mass/Vol] 17.0 mg/dL Normal 7.0-18.0 [facility] Comment on above: Performed By: #### C RP, BMP #### [facility] [address] [place] [address] Dr. Kristina Morales Urea nitrogen/Creatinine [Mass ratio] 18.7 mg/mg Normal [facility] Comment on above: Performed By: #### C RP, BMP #### [facility] [address] [place] [address] CHEST WO IVCONon 06-01-19 [facility] CNOVon 01-25-2022 CNOV Office Visit (CNFVM) CELSO POTTS ([id number]) 1980 F TRN Date Time Provider Department [...] for acne. Responsive to Compazine. Modified ESAS (Sidney Symptom Assessment Scale) Information Provided By: Patient [...] was identified. 01/25/2022 by Juan Francisco Hutchinson APRN.INTERNET MARKETING CONSULTANT Urine Screen Lab Results Component Value Date UAMPH Negative 02/24/2021 UBARB2 Negative 02/24/2021 UBENZ Negative 02/24/2021 UQBUPRE <20 02/24/2021 UQNORBUP <20 02/24/2021 UCOC2 Negative 02/24/2021 UQCANN <16 02/24/2021 UOPI Negative 02/24/2021 UOXYC Negative 02/24/2021 UPCP Negative 02/24/2021 UTHC Negative 02/24/2021 UETOH <11 0 (more content not included)... Normal [facility] PAIN PANEL, UR QUANTon 01-25 3-Kqhtskzftl-7,5-Dim ethyl-3,3-Diphenylpy rrolidine (EDDP) Confirm (U) [Mass/Vol] <6 Normal <6 [facility] Comment on above: Order Comment: Speci men Type: URINE SPECIMEN Ordering Facility: [facility] Address: [address] [place] [address] Result Comment: EDDP is a metabolite of methadone. Performed By: #### L [id number] #### [facility] CLIA [id number] [address] [place] [address] STATES OF [facility] 6-Monoacetylmorphine (6-BERNIE) (U) [Mass/Vol] <5 Normal <5 [facility] Comment on above: Order Comment: Speci men Type: URINE SPECIMEN Ordering Facility: [facility] Address: [address] [place] [address] Result Comment: 6-MA M (6-monoacetylmorphine, also known as 6-acetylmorphine) is a unique metabolite of heroin. Presence of 6-BERNIE indicates use of heroin. 6-BERNIE is further metabolized to morphine and absence of 6-BERNIE does not rule out the use of heroin. Performed By: #### L [id number] #### [facility] CLIA [id number] [address] [place] [address] STATES OF [facility] Amphetamine Confirm (U) [Mass/Vol] <5 Normal <5 [facility] Comment on above: Order Comment: Speci men Type: URINE SPECIMEN Ordering Facility: [facility] Address: [address] [place] [address] Performed By: #### L [id number] #### [facility] CLIA [id number] [address] [place] Benzoylecgonine Confirm (U) [Mass/Vol] <24 Normal <24 [facility] Comment on above: Order Comment: Speci men Type: URINE SPECIMEN Ordering Facility: [facility] Address: [address] [place] [address] Result Comment: Henry oylecgonine is a metabolite of cocaine. Performed By: #### L [id number] #### [facility] CLIA [id number] [address] [place] [address] [place] Buprenorphine (U) [Mass/Vol] <20 Normal <20 [facility] Comment on above: Order Comment: Speci men Type: URINE SPECIMEN Ordering Facility: [facility] Address: [address] [place] [address] Performed By: #### L [id number] #### [facility] [place] [id number] [address] [place] [address] [place] Cannabinoids Confirm (U) [Mass/Vol] <16 Normal <16 [facility] Comment on above: Order Comment: Speci men Type: URINE SPECIMEN Ordering Facility: [facility] Address: [address] [place] [address] Result Comment: Tetr ahydrocannabinol carboxylic acid (THCA) is a metabolite of xfqej-5-sfexsztwgydqusjbsyfb which is the main active component of marijuana. Performed By: #### L [id number] #### [facility] [place] [id number] [address] [place] [address] [place] Codeine Confirm (U) [Mass/Vol] <11 Normal <11 [facility] Comment on above: Order Comment: Speci men Type: URINE SPECIMEN Ordering Facility: [facility] Address: [address] [place] [address] Performed By: #### L [id number] #### [facility] CLIA [id number] [address] [place] [address] [place] Dihydrocodeine Confirm (U) [Mass/Vol] <5 Normal <5 [facility] Comment on above: Order Comment: Speci men Type: URINE SPECIMEN Ordering Facility: [facility] Address: [address] [place] [address] Performed By: #### L [id number] #### [facility] CLIA [id number] [address] OF [place] fentaNYL Confirm (U) [Mass/Vol] <6 Normal <6 [facility] Comment on above: Order Comment: Speci men Type: URINE SPECIMEN Ordering Facility: [facility] Address: [address] [place] [address] Performed By: #### L [id number] #### [facility] CLIA [id number] [address] [place] [address] [place] HYDROcodone Confirm (U) [Mass/Vol] <8 Normal <8 [facility] Comment on above: Order Comment: Speci men Type: URINE SPECIMEN Ordering Facility: [facility] Address: [address] [place] [address] Result Comment: Hydr ocodone is a metabolite of dihydrocodeine. Performed By: #### L [id number] #### [facility] CLIA [id number] [address] [place] [address] [place] HYDROmorphone Confirm (U) [Mass/Vol] <5 Normal <5 [facility] Comment on above: Order Comment: Speci men Type: URINE SPECIMEN Ordering Facility: [facility] Address: [address] [place] [address] Result Comment: Hydr omorphone is a metabolite of hydrocodone. Performed By: #### L [id number] #### [facility] CLIA [id number] [address] [place] Methadone Confirm (U) [Mass/Vol] <16 Normal <16 [facility] Comment on above: Order Comment: Speci men Type: URINE SPECIMEN Ordering Facility: [facility] Address: [address] [address] Performed By: #### L [id number] #### [facility] [place] [id number] [address] Methamphetamine Confirm (U) [Mass/Vol] <8 Normal <8 [facility] Comment on above: Order Comment: Speci men Type: URINE SPECIMEN Ordering Facility: [facility] Address: [address] [address] Performed By: #### L [id number] #### [facility] [place] [id number] [address] Morphine Confirm (U) [Mass/Vol] <10 Normal <10 [facility] Comment on above: Order Comment: Speci men Type: URINE SPECIMEN Ordering Facility: [facility] Address: [address] [place] [address] Result Comment: Morp majo is a metabolite of codeine and heroin. Performed By: #### L [id number] #### [facility] [place] [id number] [address] [place] [address] Norbuprenorphine (U) [Mass/Vol] <20 Normal <20 [facility] Comment on above: Order Comment: Speci men Type: URINE SPECIMEN Ordering Facility: [facility] Address: [address] [place] [address] Result Comment: Norb uprenorphine is the primary active metabolite of buprenorphine. Performed By: #### L [id number] #### [facility] CLIA [id number] [address] [place] [address] Norfentanyl Confirm (U) [Mass/Vol] <6 Normal <6 [facility] Comment on above: Order Comment: Speci men Type: URINE SPECIMEN Ordering Facility: [facility] Address: [address] [place] [address] Result Comment: Norf entanyl is a metabolite of fentanyl. Performed By: #### L [id number] #### [facility] CLIA [id number] [address] [place] [address] [place] Nortramadol (U) [Mass/Vol] <20 Normal <20 [facility] Comment on above: Order Comment: Speci men Type: URINE SPECIMEN Ordering Facility: [facility] Address: [address] [address] Result Comment: Desm ethyltramadol is a metabolite of tramadol. Performed By: #### L [id number] #### [facility] CLIA [id number] [facility] [place] [address] [place] NOTE,UR PAIN OCASIO Normal [facility] Comment on above: Order Comment: Speci men Type: URINE SPECIMEN Ordering Facility: [facility] Address: [address] [place] [address] Result Comment: This test is for medical use only. This test was developed and its performance characteristics determined by [facility] [place] (-[facility]). It has not been cleared or approved by the FDA. -[facility] is regulated under CLIA as qualified to perform high-complexity testing. This test is used for clinical purposes. It should not be regarded as investigational or for research. Performed By: #### L [id number] #### [facility] CLIA [id number] [address] [place] [address] [place] oxyCODONE Confirm (U) [Mass/Vol] 2574 ng/mL High <10 [facility] Comment on above: Order Comment: Speci men Type: URINE SPECIMEN Ordering Facility: [facility] Address: [address] [place] [address] Result Comment: Oxyc odone is not a recognized metabolite of other opiates and its presence indicates use of an oxycodone containing drug. Oxycodone is metabolized to oxymorphone. Performed By: #### L [id number] #### [facility] CLIA [id number] [facility] [place] [address] [place] oxyMORphone Confirm (U) [Mass/Vol] 2296 ng/mL High <5 [facility] Comment on above: Order Comment: Speci men Type: URINE SPECIMEN Ordering Facility: [facility] Address: [address] [place] [address] Result Comment: Oxym orphone may arise from oxymorphone containing drugs or by metabolism of oxycodone. Performed By: #### L [id number] #### [facility] CLIA [id number] [address] traMADol Confirm (U) [Mass/Vol] <25 Normal <25 [facility] Comment on above: Order Comment: Speci men Type: URINE SPECIMEN Ordering Facility: [facility] Address: [address] [place] [address] Performed By: #### L [id number] #### [facility] CLIA [id number] [address] [place] [address] OF [place] SPECIMEN VALIDITY, URINEon 1 03-28-2021 CHROMATE,URINE <10 Normal <50 [facility] Comment on above: Order Comment: Speci men Type: URINE SPECIMEN Ordering Facility: [facility] Address: [address] [place] [address] Performed By: #### L [id number] #### [facility] CLIA [id number] [facility] [address] [place] CREATININE,URINE 78.6 mg/dL Normal 20.0-300.0 [facility] Comment on above: Order Comment: Speci men Type: URINE SPECIMEN Ordering Facility: [facility] Address: [address] [place] [address] Performed By: #### L [id number] #### [facility] CLIA [id number] [address] STATES [facility] NITRITES,URINE <50 Normal <500 [facility] Comment on above: Order Comment: Speci men Type: URINE SPECIMEN Ordering Facility: [facility] Address: [address] Performed By: #### L [id number] #### [facility] CLIA [id number] [address] [place] [address] [place] OXIDANTS,URINE 58 mg/L Normal <200 [facility] Comment on above: Order Comment: Speci men Type: URINE SPECIMEN Ordering Facility: [facility] Address: [address] [place] [address] Performed By: #### L [id number] #### [facility] CLIA [id number] [address] [place] [address] [place] pH (U) 5.7 [pH] Normal 4.5-8.0 [facility] Comment on above: Order Comment: Speci men Type: URINE SPECIMEN Ordering Facility: [facility] Address: [address] [place] [address] Performed By: #### L [id number] #### [facility] CLIA [id number] [address] [place] [address] [place] SPEC GRAVITY,UR 1.010 Normal 1.003-1.035 [facility] Comment on above: Order Comment: Speci men Type: URINE SPECIMEN Ordering Facility: [facility] Address: [address] [place] [address] Performed By: #### L [id number] #### [facility] CLIA [id number] [address] [place] [address] [place] SPECIMEN VALIDITY QUALITY Specimen quality results within acceptable limits Normal [facility] Comment on above: Order Comment: Speci men Type: URINE SPECIMEN Ordering Facility: [facility] Address: [address] [place], [place] [address] Performed By: #### L [id number] #### [facility] CLIA [id number] [address] [place] [address] [place] CBC W Auto Differential pane l (Bld)on 09-26-2022 Abs Immature Gran 0.03 k/uL <0.10 k/uL [facility] Basophils (Bld) [#/Vol] 0.03 10*3/uL <0.11 k/uL [facility] Basophils/100 WBC (Bld) 0.4 % [facility] Differential cell count method Nom (Bld) Auto [facility] Eosinophils (Bld) [#/Vol] 0.34 10*3/uL <0.46 k/uL [facility] Eosinophils/100 WBC (Bld) 4.8 % [facility] Erythrocyte distribution width (RBC) [Ratio] 13.8 % 11.5 - 15.0 % [facility] Hematocrit (Bld) [Volume fraction] 44.4 % 36.0 - 46.0 % [facility] Hemoglobin (Bld) [Mass/Vol] 14.8 g/dL 11.5 - 15.5 g/dL [facility] Immature Gran % 0.4 % [facility] Lymphocytes (Bld) [#/Vol] 1.62 10*3/uL 1.00 - 4.00 k/uL [facility] Lymphocytes/100 WBC (Bld) 23.0 % [facility] MCH (RBC) [Entitic mass] 31.6 pg 26.0 - 34.0 pg [facility] MCHC (RBC) [Mass/Vol] 33.3 g/dL 30.5 - 36.0 g/dL [facility] MCV (RBC) [Entitic vol] 94.7 fL 80.0 - 100.0 fL [facility] Monocytes (Bld) [#/Vol] 0.51 10*3/uL <0.87 k/uL [facility] Monocytes/100 WBC (Bld) 7.3 % [facility] Neutrophils (Bld) [#/Vol] 4.50 10*3/uL 1.45 - 7.50 k/uL [facility] Neutrophils/100 WBC (Bld) 64.1 % [facility] Nucleated RBC (Bld) [#/Vol] <0.01 k/uL [facility] Nucleated RBC/100 WBC (Bld) [Ratio] 0.0 /100 WBC [facility] Platelet mean volume (Bld) [Entitic vol] 9.6 fL 9.0 - 12.7 fL [facility] Platelets (Bld) [#/Vol] 310 10*3/uL 150 - 400 k/uL [facility] RBC (Bld) [#/Vol] 4.69 10*6/uL 3.90 - 5.2 0 m/uL [facility] WBC (Bld) [#/Vol] 7.03 10*3/uL 3.70 - 11. 00 k/uL [facility] CNOVon 10-26-2021 CNOV Office Visit (CNFVM) CELSO POTTS ([id number]) 1980 F TRN Date Time Provider Department 10/26/21 3:00 PM [facility] During your visit today, we recorded the following information about you: Temperature Pulse Blood pressure Weight 97.7 degrees 100/minute 117/88 103 kg Juan Francisco Hutchinson APRN.INTERNET MARKETING CONSULTANT 10/26/2021 2:43 PM Signed PALLIATIVE MEDICINE PROGRESS [...] upcoming PET scan will show. Modified ESAS (Sidney Symptom Assessment Scale) Information Provided By: Patient [...] Medical Onco (more content not included)... Normal [facility] WOUND CULTUREon 07-28-2021 Bacteria identified Aer cx Nom (Unsp spec) Final report Normal [facility] Comment on above: Performed By: #### C XWND #### [facility] [address] [place], [place] [address] Dr. Kristina Morales Result 1 Mixed skin doni Normal [facility] Comment on above: Performed By: #### C XWND #### [facility] [address] [place], [place] [address] Dr. Krsitina Morales Initial Visit (Otolaryngolog y)on 07-05-2021 Initial [...] (V15.82) (Z87.891) Allergies sulfa Rash; Recorded By: Shannen Wheat; 08/25/2019 8:25:52 AM Current Meds Medication [...] laryngeal structure (more content not included)... Normal [facility] Culture, Urineon 04-17-2021 Culture, Urine ORDER#: [id number] ORDERED BY: SHEILA LIN SOURCE: Urine Voided COLLECTED: 04/17/21 18:42 ANTIBIOTICS AT CECILY.: RECEIVED : 04/17/21 19:23 Culture, Urine FINAL 04/19/21 12:36 Cult,Urine: NO SIGNIFICANT GROWTH Performed at [address] [address] ([phone] Normal [facility] Comment on above: Performed By: #### C SHIRA #### [facility] [address] [place] [address] Urinalysis, reflex to micros copicon 04-17-2021 Bilirubin Ql (U) Negative Normal Negative [facility] Comment on above: Performed By: #### U A #### [facility] [address] [place] [address] Clarity (U) Clear Normal Clear [facility] Comment on above: Performed By: #### U A #### [facility] [address] [place] [address] Color (U) Yellow Normal Straw/Cass [facility] Comment on above: Performed By: #### U A #### [facility] [address] [place] [address] Glucose Ql (U) Negative Normal Negative [facility] Comment on above: Performed By: #### U A #### [facility] [address] [place] [address] Hemoglobin Ql (U) Negative Normal Negative [facility] Comment on above: Performed By: #### U A #### [facility] [address] [place] [address] Ketones Ql (U) Negative Normal Negative [facility] Comment on above: Performed By: #### U A #### [facility] [address] [place] [address] Leukocyte esterase Test strip Ql (U) TRACE Abnormal Negative [facility] Comment on above: Performed By: #### U A #### [facility] [address] [place] [address] Nitrite Ql (U) Negative Normal Negative [facility] Comment on above: Performed By: #### U A #### [facility] [address] [place] [address] pH (U) 6.0 [pH] Normal 5.0-9.0 [facility] Comment on above: Performed By: #### U A #### [facility] [address] [place] [address] Protein Ql (U) Negative Normal Negative [facility] Comment on above: Performed By: #### U A #### [facility] [address] [place] [address] Specific gravity (U) [Rel density] 1.006 Normal 1.005-1.03 [facility] Comment on above: Performed By: #### U A #### [facility] [address] [place] [address] Urobilinogen Qn (U) 0.2 {Nuvia'U}/dL Normal < 2.0 [facility] Comment on above: Performed By: #### U A #### [facility] [address] [place] [address] Urine Microscopicon 04-17-19 22 Bacteria LM.HPF (Urine sed) [#/Area] Negative Normal Negative [facility] Comment on above: Performed By: #### U RICARDO #### [facility] [address] [place] [address] Urine Epithelial Cells Auto 0-2 Normal 0-5 [facility] Comment on above: Performed By: #### U RICARDO #### [facility] [address] [place] [address] Urine Hyaline Casts Auto 0-1 Normal 0-5 [facility] Comment on above: Performed By: #### U RICARDO #### [facility] [address] [place] [address] Urine RBC Auto 0-2 Normal 0-5 [facility] Comment on above: Performed By: #### U RICARDO #### [facility] [address] [place] [address] Urine WBC Auto 0-2 Normal 0-5 [facility] Comment on above: Performed By: #### U RICARDO #### [facility] [address] [place] [address] COVID Quick Testingon 2020 Result Negative [employer] Other KNEE CMPLT, 4 OR MORE VIEWSo n 08-24-2019 KNEE CMPLT, 4 OR MORE VIEWS Patient Name: CELSO POTTS STUDY: KNEE; COMPLT, 4 OR MORE VIEWS; Left; 08/24/2019 3:23 pm INDICATION: Pain. ACCESSION NUMBER(S): [id number] ORDERING CLINICIAN: RENETTA GUERRERO FINDINGS: Left knee x-rays four views AP, lateral, tunnel and sunrise view: No acute fractures, no dislocation. No significant degenerative changes. Electronically signed by: RENETTA GUERRERO MD Normal [facility] Free T4on 03-02-2019 Free T4 [Mass/Vol] 1.2 ng/dL Normal 0.9-1.7 [facility] Comment on above: Performed By: #### F T4, TSH #### [facility] Routine Lab [address] [place], [place] [address] TSHon 03-02-2019 TSH Qn 5.290 uU/mL High 0.270-4.200 [facility] Comment on above: Performed By: #### F T4, TSH #### [facility] Routine Lab [address] [place], [place] [address] Vital Signs Date Time Vital Sign Value Performing Clinician Facility 10-17-2023 09:59-0400 Body temperature 97 [degF] Juan Francisco Hutchinson APRN.INTERNET MARKETING CONSULTANT Work Phone: [facility] 10-17-2023 09:59-0400 Diastolic blood pressure 75 mm[Hg] Juan Francisco Hutchinson APRN.INTERNET MARKETING CONSULTANT Work Phone: [facility] 10-17-2023 09:59-0400 Heart rate 91 /min Juan Francisco Hutchinson APRN.INTERNET MARKETING CONSULTANT Work Phone: [facility] 10-17-2023 09:59-0400 Respiratory rate 16 /min Juan Francisco Hutchinson TELEPHONE ANSWERING SERVICE OPERATOR.INTERNET MARKETING CONSULTANT Work Phone: [facility] 10-17-2023 09:59-0400 SaO2% (BldA) [Mass fraction] 96 % Juan Francisco Hutchinson TELEPHONE ANSWERING SERVICE OPERATOR.INTERNET MARKETING CONSULTANT Work Phone: [facility] 10-17-2023 09:59-0400 Systolic blood pressure 108 mm[Hg] Juan Francisco Hutchinson TELEPHONE ANSWERING SERVICE OPERATOR.INTERNET MARKETING CONSULTANT Work Phone: [facility] 10-09-2023 10:58-0400 Diastolic blood pressure 83 mm[Hg] Simin Brandt MD Work Phone: [facility] 10-09-2023 10:58-0400 Heart rate 74 /min Simin Brandt MD Work Phone: [facility] 10-09-2023 10:58-0400 SaO2% (BldA) [Mass fraction] 99 % Simin Brandt MD Work Phone: [facility] 10-09-2023 10:58-0400 Systolic blood pressure 123 mm[Hg] Simin Brandt MD Work Phone: [facility] 09-18-2023 09:29-0400 Body temperature 96.91 [degF] Loy Merino PA-C Work Phone: [facility] 08-06-2023 06:59-0400 Body height 180 cm Radha Ruano APRN.INTERNET MARKETING CONSULTANT Work Phone: [facility] 08-06-2023 06:59-0400 Diastolic blood pressure 76 mm[Hg] Radha Ruano APRN.INTERNET MARKETING CONSULTANT Work Phone: [facility] 08-06-2023 06:59-0400 Heart rate 91 /min Radha Ruano TELEPHONE ANSWERING SERVICE OPERATOR.INTERNET MARKETING CONSULTANT Work Phone: [facility] 08-06-2023 06:59-0400 SaO2% (BldA) [Mass fraction] 97 % Radha Bindu TELEPHONE ANSWERING SERVICE OPERATOR.INTERNET MARKETING CONSULTANT Work Phone: [facility] Comment on above: RA 08-06-2023 06:59-0400 Systolic blood pressure 120 mm[Hg] Radha Ruano TELEPHONE ANSWERING SERVICE OPERATOR.INTERNET MARKETING CONSULTANT Work Phone: [facility] 08-05-2023 10:04-0400 Body temperature 97.59 [degF] Alexsander Ledezma MD Work Phone: [facility] 08-05-2023 10:04-0400 Diastolic blood pressure 86 mm[Hg] Alexsander Ledezma MD Work Phone: [facility] 08-05-2023 10:04-0400 Heart rate 88 /min Alexsander Ledezma MD Work Phone: [facility] 08-05-2023 10:04-0400 Respiratory rate 16 /min Alexsander Ledezma MD Work Phone: [facility] 08-05-2023 10:04-0400 SaO2% (BldA) [Mass fraction] 95 % Alexsander Ledezma MD Work Phone: [facility] 08-05-2023 10:04-0400 Systolic blood pressure 123 mm[Hg] Alexsander Ledezma MD Work Phone: [facility] 2023 10:07-0400 Body temperature 97.9 [degF] Juan Francisco Hutchinson APRN.INTERNET MARKETING CONSULTANT Work Phone: [facility] 2023 10:07-0400 Diastolic blood pressure 64 mm[Hg] Juan Francisco Hutchinson APRN.INTERNET MARKETING CONSULTANT Work Phone: [facility] 2023 10:07-0400 Heart rate 93 /min Juan Francisco Hutchinson APRN.INTERNET MARKETING CONSULTANT Work Phone: [facility] 2023 10:07-0400 SaO2% (BldA) [Mass fraction] 97 % Juan Francisco Hutchinson APRN.INTERNET MARKETING CONSULTANT Work Phone: [facility] 2023 10:07-0400 Systolic blood pressure 117 mm[Hg] Juan Francisco Emely TELEPHONE ANSWERING SERVICE OPERATOR.INTERNET MARKETING CONSULTANT Work Phone: [facility] 06-28-2023 11:07-0400 Diastolic blood pressure 84 mm[Hg] Summer Carver MD Work Phone: [facility] 06-28-2023 11:07-0400 Heart rate 93 /min Summer Carver MD Work Phone: [facility] 06-28-2023 11:07-0400 SaO2% (BldA) [Mass fraction] 100 % Summer Carver MD Work Phone: [facility] Comment on above: ra 06-28-2023 11:07-0400 Systolic blood pressure 118 mm[Hg] Summer Carver MD Work Phone: [facility] 06-13-2023 11:03-0400 Body height 180 cm Radha Pelbrandyn TELEPHONE ANSWERING SERVICE OPERATOR.INTERNET MARKETING CONSULTANT Work Phone: [facility] 06-13-2023 11:03-0400 Body temperature 98.29 [degF] Radha Pelfrey TELEPHONE ANSWERING SERVICE OPERATOR.INTERNET MARKETING CONSULTANT Work Phone: [facility] 06-13-2023 11:03-0400 Diastolic blood pressure 69 mm[Hg] Radha Pelfrey TELEPHONE ANSWERING SERVICE OPERATOR.INTERNET MARKETING CONSULTANT Work Phone: [facility] 06-13-2023 11:03-0400 Heart rate 99 /min Radha Pelbrandyn TELEPHONE ANSWERING SERVICE OPERATOR.INTERNET MARKETING CONSULTANT Work Phone: [facility] 06-13-2023 11:03-0400 SaO2% (BldA) [Mass fraction] 98 % Radha Pelfrey TELEPHONE ANSWERING SERVICE OPERATOR.INTERNET MARKETING CONSULTANT Work Phone: [facility] Comment on above: 06-13-2023 11:03-0400 Systolic blood pressure 114 mm[Hg] Radha Pelfrey TELEPHONE ANSWERING SERVICE OPERATOR.INTERNET MARKETING CONSULTANT Work Phone: [facility] 06-10-2023 10:08-0400 Body temperature 97 [degF] Alexsander Ledezma MD Work Phone: [facility] 06-10-2023 10:08-0400 Diastolic blood pressure 72 mm[Hg] Alexsander Ledezma MD Work Phone: [facility] 06-10-2023 10:08-0400 Heart rate 94 /min Alexsander Ledezma MD Work Phone: [facility] 06-10-2023 10:08-0400 Respiratory rate 18 /min Alexsander Ledezma MD Work Phone: [facility] 06-10-2023 10:08-0400 SaO2% (BldA) [Mass fraction] 98 % Alexsander Ledezma MD Work Phone: [facility] 06-10-2023 10:08-0400 Systolic blood pressure 111 mm[Hg] Alexsander Ledezma MD Work Phone: [facility] 05-31-2023 14:38-0400 Body temperature 96.91 [degF] Zoila Aguirre TELEPHONE ANSWERING SERVICE OPERATOR.INTERNET MARKETING CONSULTANT Work Phone: [facility] 05-31-2023 14:38-0400 Diastolic blood pressure 83 mm[Hg] Zoila Aguirre TELEPHONE ANSWERING SERVICE OPERATOR.INTERNET MARKETING CONSULTANT Work Phone: [facility] 05-31-2023 14:38-0400 Heart rate 109 /min Zoila Aguirre TELEPHONE ANSWERING SERVICE OPERATOR.INTERNET MARKETING CONSULTANT Work Phone: [facility] 05-31-2023 14:38-0400 Respiratory rate 16 /min Zoila Aguirre TELEPHONE ANSWERING SERVICE OPERATOR.INTERNET MARKETING CONSULTANT Work Phone: [facility] 05-31-2023 14:38-0400 SaO2% (BldA) [Mass fraction] 97 % Zoila Aguirre TELEPHONE ANSWERING SERVICE OPERATOR.INTERNET MARKETING CONSULTANT Work Phone: [facility] 05-31-2023 14:38-0400 Systolic blood pressure 120 mm[Hg] Zoila Aguirre TELEPHONE ANSWERING SERVICE OPERATOR.INTERNET MARKETING CONSULTANT Work Phone: [facility] 05-22-2023 07:50-0400 Body temperature 97.11 [degF] Loy Merino PA-C Work Phone: [facility] 04-19-2023 08:35-0500 Body height 182.9 cm Radha Ruano TELEPHONE ANSWERING SERVICE OPERATOR.INTERNET MARKETING CONSULTANT Work Phone: [facility] 04-19-2023 08:35-0500 Body weight 103.9 kg Radha Ruano TELEPHONE ANSWERING SERVICE OPERATOR.INTERNET MARKETING CONSULTANT Work Phone: [facility] 04-19-2023 08:35-0500 Diastolic blood pressure 76 mm[Hg] Radha Ruano TELEPHONE ANSWERING SERVICE OPERATOR.INTERNET MARKETING CONSULTANT Work Phone: [facility] 04-19-2023 08:35-0500 Heart rate 94 /min Radha Ruano TELEPHONE ANSWERING SERVICE OPERATOR.INTERNET MARKETING CONSULTANT Work Phone: [facility] 04-19-2023 08:35-0500 SaO2% (BldA) [Mass fraction] 98 % Radha Ruano TELEPHONE ANSWERING SERVICE OPERATOR.INTERNET MARKETING CONSULTANT Work Phone: [facility] 04-19-2023 08:35-0500 Systolic blood pressure 112 mm[Hg] Radha Ruano TELEPHONE ANSWERING SERVICE OPERATOR.INTERNET MARKETING CONSULTANT Work Phone: [facility] 04-16-2023 10:41-0500 Body height 180 cm Alexsander Ledezma MD Work Phone: [facility] 04-16-2023 10:41-0500 Body temperature 97.39 [degF] Alexsander Ledezma MD Work Phone: [facility] 04-16-2023 10:41-0500 Body weight 102 kg Alexsander Ledezma MD Work Phone: [facility] 04-16-2023 10:41-0500 Diastolic blood pressure 82 mm[Hg] Alexsander Ledezma MD Work Phone: [facility] 04-16-2023 10:41-0500 Heart rate 89 /min Alexsander Ledezma MD Work Phone: [facility] 04-16-2023 10:41-0500 Respiratory rate 18 /min Alexsander Ledezma MD Work Phone: [facility] 04-16-2023 10:41-0500 SaO2% (BldA) [Mass fraction] 95 % Alexsander Ledezma MD Work Phone: [facility] 04-16-2023 10:41-0500 Systolic blood pressure 117 mm[Hg] Alexsander Ledezma MD Work Phone: [facility] 03-28-2023 14:19-0500 Body weight 108.86 kg Kylie Nunes LORY.INTERNET MARKETING CONSULTANT Work Phone: [facility] 03-28-2023 14:19-0500 Diastolic blood pressure 81 mm[Hg] Kylie Millardpallavi HENLEY.INTERNET MARKETING CONSULTANT Work Phone: [facility] 03-28-2023 14:19-0500 Heart rate 99 /min Kylie Millardpallavi BROWNN.INTERNET MARKETING CONSULTANT Work Phone: [facility] 03-28-2023 14:19-0500 SaO2% (BldA) [Mass fraction] 97 % Kylie Nunes LORY.INTERNET MARKETING CONSULTANT Work Phone: [facility] 03-28-2023 14:19-0500 Systolic blood pressure 114 mm[Hg] Kylie Millardpallavi HENLEY.INTERNET MARKETING CONSULTANT Work Phone: [facility] 01-29-2023 16:45-0500 Body height 182.88 cm Keke Bright Other [employer] Other 01-29-2023 16:45-0500 Body mass index (BMI) [Ratio] 30.92 kg/m2 Keke Bright Other [employer] Other 01-29-2023 16:45-0500 Body temperature 98 [degF] Keke Bright Other [employer] Other 01-29-2023 16:45-0500 Body weight 103.42 kg Keke Bright Other [employer] Other 01-29-2023 16:45-0500 Diastolic blood pressure 86 mm[Hg] Keke Bright Other [employer] Other 01-29-2023 16:45-0500 Respiratory rate 18 /min Keke Bright Other [employer] Other 01-29-2023 16:45-0500 SaO2% (BldA) [Mass fraction] 98 % Keke Bright Other [employer] Other 01-29-2023 16:45-0500 Systolic blood pressure 133 mm[Hg] Keke Bright Other [employer] Other 01-01-2023 10:53-0500 Body height 180 cm Alexsander Ledezma MD Work Phone: [facility] 01-01-2023 10:53-0500 Body temperature 97 [degF] Alexsander Ledezma MD Work Phone: [facility] 01-01-2023 10:53-0500 Body weight 102.6 kg Alexsander Ledezma MD Work Phone: [facility] 01-01-2023 10:53-0500 Diastolic blood pressure 89 mm[Hg] Alexsander Ledezma MD Work Phone: [facility] 01-01-2023 10:53-0500 Heart rate 104 /min Alexsander Ledezma MD Work Phone: [facility] 01-01-2023 10:53-0500 Respiratory rate 16 /min Alexsander Ledezma MD Work Phone: [facility] 01-01-2023 10:53-0500 SaO2% (BldA) [Mass fraction] 97 % Alexsander Ledezma MD Work Phone: [facility] 01-01-2023 10:53-0500 Systolic blood pressure 133 mm[Hg] Alexsander Ledezma MD Work Phone: [facility] 10-18-2022 11:01-0400 Body temperature 98.2 [degF] Juan Francisco Hutchinson APRN.CNP Work Phone: [facility] 10-18-2022 11:01-0400 Body weight 102.01 kg Juan Francisco Hutchinson TELEPHONE ANSWERING SERVICE OPERATOR.INTERNET MARKETING CONSULTANT Work Phone: [facility] 10-18-2022 11:01-0400 Diastolic blood pressure 81 mm[Hg] Juan Francisco Hutchinson TELEPHONE ANSWERING SERVICE OPERATOR.INTERNET MARKETING CONSULTANT Work Phone: [facility] 10-18-2022 11:01-0400 Heart rate 96 /min Juan Francisco Hutchinson TELEPHONE ANSWERING SERVICE OPERATOR.INTERNET MARKETING CONSULTANT Work Phone: [facility] 10-18-2022 11:01-0400 SaO2% (BldA) [Mass fraction] 96 % Juan Francisco Hutchinson TELEPHONE ANSWERING SERVICE OPERATOR.INTERNET MARKETING CONSULTANT Work Phone: [facility] 10-18-2022 11:01-0400 Systolic blood pressure 116 mm[Hg] Juan Francisco Hutchinson TELEPHONE ANSWERING SERVICE OPERATOR.INTERNET MARKETING CONSULTANT Work Phone: [facility] 09-13-2022 10:06-0400 Body weight 103.87 kg Summer Carver MD Work Phone: [facility] 09-13-2022 10:06-0400 Diastolic blood pressure 87 mm[Hg] Summer Carver MD Work Phone: [facility] 09-13-2022 10:06-0400 Heart rate 95 /min Summer Carver MD Work Phone: [facility] 09-13-2022 10:06-0400 Respiratory rate 16 /min Summer Carver MD Work Phone: [facility] 09-13-2022 10:06-0400 SaO2% (BldA) [Mass fraction] 96 % Summer Carver MD Work Phone: [facility] 09-13-2022 10:06-0400 Systolic blood pressure 121 mm[Hg] Summer Carver MD Work Phone: [facility] 08-22-2022 14:33-0400 Body temperature 98.6 [degF] Cyn Ramires MD Work Phone: [facility] 08-22-2022 14:33-0400 Diastolic blood pressure 74 mm[Hg] Cyn Ramires MD Work Phone: [facility] 08-22-2022 14:33-0400 Heart rate 100 /min Cyn Ramires MD Work Phone: [facility] 08-22-2022 14:33-0400 SaO2% (BldA) [Mass fraction] 94 % Cyn Ramires MD Work Phone: [facility] 08-22-2022 14:33-0400 Systolic blood pressure 105 mm[Hg] Cyn Ramires MD Work Phone: [facility] 08-01-2022 09:56-0400 Body height 180.3 cm Ella Rocio TELEPHONE ANSWERING SERVICE OPERATOR.INTERNET MARKETING CONSULTANT Work Phone: [facility] 08-01-2022 09:56-0400 Body temperature 97 [degF] Ella Rocio TELEPHONE ANSWERING SERVICE OPERATOR.INTERNET MARKETING CONSULTANT Work Phone: [facility] 08-01-2022 09:56-0400 Diastolic blood pressure 80 mm[Hg] Ella Rocio TELEPHONE ANSWERING SERVICE OPERATOR.INTERNET MARKETING CONSULTANT Work Phone: [facility] 08-01-2022 09:56-0400 Heart rate 100 /min Ella Rocio TELEPHONE ANSWERING SERVICE OPERATOR.INTERNET MARKETING CONSULTANT Work Phone: [facility] 08-01-2022 09:56-0400 SaO2% (BldA) [Mass fraction] 95 % Ella Rocio TELEPHONE ANSWERING SERVICE OPERATOR.INTERNET MARKETING CONSULTANT Work Phone: [facility] 08-01-2022 09:56-0400 Systolic blood pressure 115 mm[Hg] Ella Rocio TELEPHONE ANSWERING SERVICE OPERATOR.INTERNET MARKETING CONSULTANT Work Phone: [facility] 07-19-2022 10:32-0400 Body weight 105.33 kg Juan Francisco Hutchinson APRN.INTERNET MARKETING CONSULTANT Work Phone: [facility] 07-19-2022 10:32-0400 Diastolic blood pressure 84 mm[Hg] Juan Francisco Hutchinson APRN.INTERNET MARKETING CONSULTANT Work Phone: [facility] 07-19-2022 10:32-0400 Heart rate 104 /min Juan Francisco Emely TELEPHONE ANSWERING SERVICE OPERATOR.INTERNET MARKETING CONSULTANT Work Phone: [facility] 07-19-2022 10:32-0400 SaO2% (BldA) [Mass fraction] 94 % Juan Francisco Hutchinson TELEPHONE ANSWERING SERVICE OPERATOR.INTERNET MARKETING CONSULTANT Work Phone: [facility] 07-19-2022 10:32-0400 Systolic blood pressure 124 mm[Hg] Juan Francisco Hutchinson TELEPHONE ANSWERING SERVICE OPERATOR.INTERNET MARKETING CONSULTANT Work Phone: [facility] 07-18-2022 11:06-0400 Body height 182.9 cm Cyn Ramires MD Work Phone: [facility] 07-18-2022 11:06-0400 Body temperature 98.2 [degF] Cyn Ramires MD Work Phone: [facility] 07-18-2022 11:06-0400 Body weight 106.41 kg Cyn Ramires MD Work Phone: [facility] 07-18-2022 11:06-0400 Diastolic blood pressure 86 mm[Hg] Cyn Ramires MD Work Phone: [facility] 07-18-2022 11:06-0400 Heart rate 103 /min Cyn Ramires MD Work Phone: [facility] 07-18-2022 11:06-0400 Respiratory rate 18 /min Cyn Ramires MD Work Phone: [facility] 07-18-2022 11:06-0400 SaO2% (BldA) [Mass fraction] 96 % Cyn Ramires MD Work Phone: [facility] 07-18-2022 11:06-0400 Systolic blood pressure 124 mm[Hg] Cyn Ramires MD Work Phone: [facility] 05-01-2022 09:51-0400 Body temperature 98.01 [degF] Treatment Rej Work Phone: [facility] 05-01-2022 09:51-0400 Diastolic blood pressure 87 mm[Hg] Treatment Rej Work Phone: [facility] 05-01-2022 09:51-0400 Heart rate 106 /min Treatment Rej Work Phone: [facility] 05-01-2022 09:51-0400 Respiratory rate 18 /min Treatment Rej Work Phone: [facility] 05-01-2022 09:51-0400 Systolic blood pressure 123 mm[Hg] Treatment Rej Work Phone: [facility] 04-23-2022 09:49-0500 Body weight 106.91 kg Juan Francisco Hutchinson TELEPHONE ANSWERING SERVICE OPERATOR.INTERNET MARKETING CONSULTANT Work Phone: [facility] 04-23-2022 09:49-0500 Diastolic blood pressure 77 mm[Hg] Juan Francisco Hutchinson TELEPHONE ANSWERING SERVICE OPERATOR.INTERNET MARKETING CONSULTANT Work Phone: [facility] 04-23-2022 09:49-0500 Heart rate 99 /min Juan Francisco Hutchinson TELEPHONE ANSWERING SERVICE OPERATOR.INTERNET MARKETING CONSULTANT Work Phone: [facility] 04-23-2022 09:49-0500 Systolic blood pressure 113 mm[Hg] Juan Francisco Hutchinson TELEPHONE ANSWERING SERVICE OPERATOR.INTERNET MARKETING CONSULTANT Work Phone: [facility] 03-07-2022 11:37-0500 Body temperature 98.4 [degF] Cyn Ramires MD Work Phone: [facility] 03-07-2022 11:37-0500 Diastolic blood pressure 70 mm[Hg] Cyn Ramires MD Work Phone: [facility] 03-07-2022 11:37-0500 Heart rate 106 /min Cyn Ramires MD Work Phone: [facility] 03-07-2022 11:37-0500 SaO2% (BldA) [Mass fraction] 98 % Cyn Ramires MD Work Phone: [facility] 03-07-2022 11:37-0500 Systolic blood pressure 113 mm[Hg] Cyn Ramires MD Work Phone: [facility] 02-14-2022 12:23-0500 Body temperature 96.8 [degF] Treatment Rej Work Phone: [facility] 02-14-2022 12:23-0500 Diastolic blood pressure 89 mm[Hg] Treatment Rej Work Phone: [facility] 02-14-2022 12:23-0500 Heart rate 102 /min Treatment Rej Work Phone: [facility] 02-14-2022 12:23-0500 Systolic blood pressure 134 mm[Hg] Treatment Rej Work Phone: [facility] 01-25-2022 14:37-0500 Body temperature 98.6 [degF] Juan Francisco Hutchinson APRN.INTERNET MARKETING CONSULTANT Work Phone: [facility] 01-25-2022 14:37-0500 Body weight 106.82 kg Juan Francisco Hutchinson APRN.INTERNET MARKETING CONSULTANT Work Phone: [facility] 01-25-2022 14:37-0500 Diastolic blood pressure 67 mm[Hg] Juan Francisco Hutchinson APRN.INTERNET MARKETING CONSULTANT Work Phone: [facility] 01-25-2022 14:37-0500 Heart rate 109 /min Juan Francisco Hutchinson APRN.INTERNET MARKETING CONSULTANT Work Phone: [facility] 01-25-2022 14:37-0500 SaO2% (BldA) [Mass fraction] 96 % Juan Francisco Hutchinson APRN.INTERNET MARKETING CONSULTANT Work Phone: [facility] 01-25-2022 14:37-0500 Systolic blood pressure 115 mm[Hg] Juan Francisco Hutchinson APRN.INTERNET MARKETING CONSULTANT Work Phone: [facility] 01-18-2022 10:30-0500 Body temperature 96.91 [degF] Treatment Rej Work Phone: [facility] 01-18-2022 10:30-0500 Diastolic blood pressure 86 mm[Hg] Treatment Rej Work Phone: [facility] 01-18-2022 10:30-0500 Heart rate 108 /min Treatment Rej Work Phone: [facility] 01-18-2022 10:30-0500 Systolic blood pressure 125 mm[Hg] Treatment Rej Work Phone: [facility] 12-27-2021 09:25-0500 Body temperature 97.5 [degF] Sylvia Mancilla TELEPHONE ANSWERING SERVICE OPERATOR.INTERNET MARKETING CONSULTANT Work Phone: [facility] 12-27-2021 09:25-0500 Body weight 105.01 kg Sylvia Mancilla TELEPHONE ANSWERING SERVICE OPERATOR.INTERNET MARKETING CONSULTANT Work Phone: [facility] 12-27-2021 09:25-0500 Diastolic blood pressure 74 mm[Hg] Sylvia Mancilla TELEPHONE ANSWERING SERVICE OPERATOR.INTERNET MARKETING CONSULTANT Work Phone: [facility] 12-27-2021 09:25-0500 Heart rate 103 /min Sylvia Mancilla TELEPHONE ANSWERING SERVICE OPERATOR.INTERNET MARKETING CONSULTANT Work Phone: [facility] 12-27-2021 09:25-0500 SaO2% (BldA) [Mass fraction] 98 % Sylvia Mancilla TELEPHONE ANSWERING SERVICE OPERATOR.INTERNET MARKETING CONSULTANT Work Phone: [facility] 12-27-2021 09:25-0500 Systolic blood pressure 116 mm[Hg] Sylvia Mancilla TELEPHONE ANSWERING SERVICE OPERATOR.INTERNET MARKETING CONSULTANT Work Phone: [facility] 12-06-2021 13:34-0400 Body temperature 97.11 [degF] Treatment Rej Work Phone: [facility] 12-06-2021 13:34-0400 Diastolic blood pressure 88 mm[Hg] Treatment Rej Work Phone: [facility] 12-06-2021 13:34-0400 Heart rate 92 /min Treatment Rej Work Phone: [facility] 12-06-2021 13:34-0400 Respiratory rate 18 /min Treatment Rej Work Phone: [facility] 12-06-2021 13:34-0400 Systolic blood pressure 199 mm[Hg] Treatment Rej Work Phone: [facility] 11-15-2021 13:08-0400 Body height 181 cm Cyn Ramires MD Work Phone: [facility] 11-15-2021 13:08-0400 Body temperature 98.71 [degF] Cyn Ramires MD Work Phone: [facility] 11-15-2021 13:08-0400 Body weight 102.78 kg Cyn Ramires MD Work Phone: [facility] 11-15-2021 13:08-0400 Diastolic blood pressure 77 mm[Hg] Cyn Ramires MD Work Phone: [facility] 11-15-2021 13:08-0400 Heart rate 100 /min Cyn Ramires MD Work Phone: [facility] 11-15-2021 13:08-0400 SaO2% (BldA) [Mass fraction] 98 % Cyn Ramires MD Work Phone: [facility] 11-15-2021 13:08-0400 Systolic blood pressure 118 mm[Hg] Cyn Ramires MD Work Phone: [facility] 10-26-2021 13:20-0400 Body temperature 97.7 [degF] Juan Francisco Hutchinson APRN.INTERNET MARKETING CONSULTANT Work Phone: [facility] 10-26-2021 13:20-0400 Body weight 102.97 kg Juan Francisco Hutchinson APRN.INTERNET MARKETING CONSULTANT Work Phone: [facility] 10-26-2021 13:20-0400 Diastolic blood pressure 88 mm[Hg] Juan Francisco Hutchinson APRN.INTERNET MARKETING CONSULTANT Work Phone: [facility] 10-26-2021 13:20-0400 Heart rate 100 /min Juan Francisco Hutchinson APRN.INTERNET MARKETING CONSULTANT Work Phone: [facility] 10-26-2021 13:20-0400 SaO2% (BldA) [Mass fraction] 97 % Juan Francisco Hutchinson APRN.INTERNET MARKETING CONSULTANT Work Phone: [facility] 10-26-2021 13:20-0400 Systolic blood pressure 117 mm[Hg] Juan Francisco Hutchinson APRN.INTERNET MARKETING CONSULTANT Work Phone: [facility] 10-26-2021 11:28-0400 Body temperature 97.59 [degF] Treatment Rej Work Phone: [facility] 10-26-2021 11:28-0400 Diastolic blood pressure 82 mm[Hg] Treatment Rej Work Phone: [facility] 10-26-2021 11:28-0400 Heart rate 108 /min Treatment Rej Work Phone: [facility] 10-26-2021 11:28-0400 Systolic blood pressure 133 mm[Hg] Treatment Rej Work Phone: [facility] 10-25-2021 10:01-0400 Body temperature 98.2 [degF] Sylvia Mancilla TELEPHONE ANSWERING SERVICE OPERATOR.INTERNET MARKETING CONSULTANT Work Phone: [facility] 10-25-2021 10:01-0400 Body weight 102.78 kg Sylviamariusz Mancilla TELEPHONE ANSWERING SERVICE OPERATOR.INTERNET MARKETING CONSULTANT Work Phone: [facility] 10-25-2021 10:01-0400 Diastolic blood pressure 87 mm[Hg] Sylvia Mancilla TELEPHONE ANSWERING SERVICE OPERATOR.INTERNET MARKETING CONSULTANT Work Phone: [facility] 10-25-2021 10:01-0400 Heart rate 102 /min Sylvia Mancilla TELEPHONE ANSWERING SERVICE OPERATOR.INTERNET MARKETING CONSULTANT Work Phone: [facility] 10-25-2021 10:01-0400 SaO2% (BldA) [Mass fraction] 97 % Sylvia Mancilla TELEPHONE ANSWERING SERVICE OPERATOR.INTERNET MARKETING CONSULTANT Work Phone: [facility] 10-25-2021 10:01-0400 Systolic blood pressure 112 mm[Hg] Sylvia Mancilla TELEPHONE ANSWERING SERVICE OPERATOR.INTERNET MARKETING CONSULTANT Work Phone: [facility] 09-06-2021 12:40-0400 Body temperature 97.7 [degF] Treatment Rej Work Phone: [facility] 09-06-2021 12:40-0400 Body weight 101.88 kg Treatment Rej Work Phone: [facility] 09-06-2021 12:40-0400 Diastolic blood pressure 73 mm[Hg] Treatment Rej Work Phone: [facility] 09-06-2021 12:40-0400 Heart rate 109 /min Treatment Rej Work Phone: [facility] 09-06-2021 12:40-0400 Systolic blood pressure 111 mm[Hg] Treatment Rej Work Phone: [facility] 07-26-2021 11:03-0400 Body temperature 97.3 [degF] Treatment Rej Work Phone: [facility] 07-26-2021 11:03-0400 Diastolic blood pressure 83 mm[Hg] Treatment Rej Work Phone: [facility] 07-26-2021 11:03-0400 Heart rate 99 /min Treatment Rej Work Phone: [facility] 07-26-2021 11:03-0400 Respiratory rate 18 /min Treatment Rej Work Phone: [facility] 07-26-2021 11:03-0400 Systolic blood pressure 126 mm[Hg] Treatment Rej Work Phone: [facility] 07-05-2021 08:31-0400 Body temperature 98.1 [degF] Treatment Rej Work Phone: [facility] 07-05-2021 08:31-0400 Diastolic blood pressure 87 mm[Hg] Treatment Rej Work Phone: [facility] 07-05-2021 08:31-0400 Heart rate 103 /min Treatment Rej Work Phone: [facility] 07-05-2021 08:31-0400 Respiratory rate 18 /min Treatment Rej Work Phone: [facility] 07-05-2021 08:31-0400 Systolic blood pressure 121 mm[Hg] Treatment Rej Work Phone: [facility] 06-14-2021 08:25-0400 Body height 181 cm Cyn Ramires MD Work Phone: [facility] 06-14-2021 08:25-0400 Body temperature 98.01 [degF] Cyn Ramires MD Work Phone: [facility] 06-14-2021 08:25-0400 Diastolic blood pressure 74 mm[Hg] Cyn Ramires MD Work Phone: [facility] 06-14-2021 08:25-0400 Heart rate 90 /min Cyn Ramires MD Work Phone: [facility] 06-14-2021 08:25-0400 Systolic blood pressure 108 mm[Hg] Cyn Ramires MD Work Phone: [facility] 05-17-2021 12:31-0400 Body temperature 97.2 [degF] Treatment Rej Work Phone: [facility] 05-17-2021 12:31-0400 Diastolic blood pressure 82 mm[Hg] Treatment Rej Work Phone: [facility] 05-17-2021 12:31-0400 Heart rate 94 /min Treatment Rej Work Phone: [facility] 05-17-2021 12:31-0400 SaO2% (BldA) [Mass fraction] 97 % Treatment Rej Work Phone: [facility] 05-17-2021 12:31-0400 Systolic blood pressure 124 mm[Hg] Treatment Rej Work Phone: [facility] 05-17-2021 11:09-0400 Body temperature 98.01 [degF] Juan Francisco Hutchinson APRN.INTERNET MARKETING CONSULTANT Work Phone: [facility] 05-17-2021 11:09-0400 Diastolic blood pressure 72 mm[Hg] Juan Francisco Hutchinson APRN.INTERNET MARKETING CONSULTANT Work Phone: [facility] 05-17-2021 11:09-0400 Heart rate 88 /min Juan Francisco Hutchinson APRN.INTERNET MARKETING CONSULTANT Work Phone: [facility] 05-17-2021 11:09-0400 SaO2% (BldA) [Mass fraction] 98 % Juan Francisco Hutchinson APRN.INTERNET MARKETING CONSULTANT Work Phone: [facility] 05-17-2021 11:09-0400 Systolic blood pressure 120 mm[Hg] Juan Francisco Hutchinson APRN.INTERNET MARKETING CONSULTANT Work Phone: [facility] 02-02-2021 10:15-0500 Body height 182.88 cm Kylie Johnson Other [employer] Other 02-02-2021 10:15-0500 Body temperature 97.4 [degF] Kylie Johnson Other [employer] Other 02-02-2021 10:15-0500 Respiratory rate 18 /min Kylie Johnson Other [employer] Other 02-02-2021 10:15-0500 SaO2% (BldA) [Mass fraction] 92 % Kylie Johnson Other [employer] Other Encounters Encounter Date Encounter Type Care Provider Facility Start: 10-29-2023 End: 10-29-2023 ambulatory Radha Ruano APRN.CNP Work Phone: Pulmonary Medicine Start: 10-29-2023 End: 10-29-2023 Patient encounter procedure Radha Bindu JAIMEINTERNET MARKETING CONSULTANT Work Phone: Pulmonary Medicine Comment on above: Schedule Appointment Start: 10-24-2023 End: 10-24-2023 ambulatory Katarzyna Stauffer Kwesi VALENTE Work Phone: Pain Management Comment on above: Questionnaire Submis alan Start: 10-24-2023 End: 10-24-2023 E-mail encounter from caregiver Katarzyna Orosco SIDRA Work Phone: Pain Management Start: 10-18-2023 End: 10-18-2023 ambulatory No Pcp TELEPHONE ANSWERING SERVICE OPERATOR [facility] Start: 10-18-2023 End: 10-18-2023 Patient encounter procedure No Pcp TELEPHONE ANSWERING SERVICE OPERATOR [facility] Start: 10-17-2023 End: 10-17-2023 Patient encounter procedure Juan Francisco Hutchinson APRN.INTERNET MARKETING CONSULTANT Work Phone: Palliative Medicine Comment on above: Encounter for pallia tive care (Primary Dx); 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); Chemotherapy-induced neuropathy (HCC); Cancer related pain; Chronic pain syndrome Start: 10-15-2023 End: 10-15-2023 ambulatory RADHA RUANO Facility:[facility] Start: 10-15-2023 End: 10-15-2023 Patient encounter procedure Pulm Lab [facility] Rej Work Phone: Pulmonary Medicine Comment on above: Spirometry Start: 10-09-2023 End: 10-09-2023 Patient encounter procedure Yasmeen Fine RT(R) Radiology Start: 10-09-2023 End: 10-09-2023 Subsequent hospital visit by physician Xr [facility] [place] Radiology Comment on above: Polyarthralgia [M25. 50] Start: 10-09-2023 End: 10-09-2023 ambulatory Yasmeen Fine RT(R) Radiology Comment on above: Radiology XR Start: 10-09-2023 End: 10-09-2023 Office consultation new/estab patient 80 min Simin Brandt MD Work Phone: Rheumatology Comment on above: Polyarthralgia (Prim destin Dx); Psoriasis Start: 09-30-2023 Refill Charlee Zhao APRN.INTERNET MARKETING CONSULTANT Work Phone: Palliative Medicine Comment on above: Refill Request Start: 09-25-2023 Refill Juan Francisco Hutchinson APRN.INTERNET MARKETING CONSULTANT Work Phone: [facility] Palliative Medicine Comment on above: Refill Request Start: 09-19-2023 End: 09-19-2023 ambulatory Juan Francisco Hutchinson APRN.INTERNET MARKETING CONSULTANT Work Phone: Palliative Medicine Comment on above: Encounter for pallia tive care (Primary Dx); Muscle cramps; Nodular sclerosing Hodgkin's lymphoma, unspecified body region (HCC); Opioid use agreement exists; Chronic nonmalignant pain; Chemotherapy-induced neuropathy (HCC); 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); Psoriatic arthritis (HCC) Start: 09-19-2023 End: 09-19-2023 Telemedicine consultation with patient Juan Francisco Hutchinson APRN.INTERNET MARKETING CONSULTANT Work Phone: Palliative Medicine Start: 09-18-2023 End: 09-18-2023 ambulatory LOY MERINO Facility:[facility] Start: 09-18-2023 End: 09-18-2023 Patient encounter procedure Loy Merino PA-C Work Phone: Otolaryngology Comment on above: Dysphagia, unspecifi ed type; Hoarseness; LPRD (laryngopharyngeal reflux disease) Start: 09-16-2023 ambulatory Juan Francisco Hutchinson APRN.PEDRO Work Phone: Palliative Medicine Comment on above: Video visit Start: 08-29-2023 Telephone encounter Juan Francisco cali APRN.PEDRO Work Phone: Palliative Medicine Start: 08-27-2023 End: 08-27-2023 ambulatory SHERLY BRUNER Facility:[facility] Start: 08-27-2023 End: 08-27-2023 Patient encounter procedure Sherly Bruner PA-C Work Phone: Orthopaedics Comment on above: Tendinitis, de [place] ain's (Primary Dx) Start: 08-26-2023 End: 08-26-2023 ambulatory SHEILA Jorge LIN Not Available Comment on above: Oxycodone Meds Start: 08-22-2023 Refill Radha Ruano APRN.CNP Work Phone: Pulmonary Medicine Comment on above: Refill Request Start: 08-13-2023 Refill Radha Ruano APRN.CNP Work Phone: Pulmonary Medicine Comment on above: Refill Request Start: 08-12-2023 End: 08-12-2023 ambulatory Juan Francisco Hutchinson APRN.INTERNET MARKETING CONSULTANT Work Phone: Palliative Medicine Comment on above: Muscle cramps (Prima ry Dx); Nodular sclerosing Hodgkin's lymphoma, unspecified body region (HCC); Chemotherapy-induced neuropathy (HCC); Encounter for palliative care; Psoriatic arthritis (HCC); Arthritis pain; Chronic nonmalignant pain; Opioid use agreement exists Start: 08-12-2023 End: 08-12-2023 Telemedicine consultation with patient Juan Francisco Emely HENLEY.PEDRO Work Phone: Palliative Medicine Start: 08-12-2023 E-mail encounter fro m caregiver [facility] Provider Hematology/Medical Oncology Start: 08-12-2023 Follow-up encounter [facility] Provider Hem atology/Medical Oncology Comment on above: Palliative Medicine Follow Up Start: 08-08-2023 End: 08-08-2023 ambulatory Juan Francisco Hutchinson APRN.INTERNET MARKETING CONSULTANT Work Phone: Palliative Medicine Comment on above: Oxycodone Start: 08-06-2023 End: 08-06-2023 ambulatory RADHA RUANO Facility:[facility] Start: 08-06-2023 End: 08-06-2023 Patient encounter procedure Radha Ruano TELEPHONE ANSWERING SERVICE OPERATOR.INTERNET MARKETING CONSULTANT Work Phone: Pulmonary Medicine Comment on above: Pneumonia due to inf ectious organism, unspecified laterality, unspecified part of lung (Primary Dx); Pulmonary hypertension (HCC); Hospital discharge follow-up Start: 08-05-2023 End: 08-05-2023 Refill Juan Francisco Hutchinson APRN.INTERNET MARKETING CONSULTANT Work Phone: Palliative Medicine Comment on above: Refill Request 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); Restrictive lung disease; Anxiety and depression Start: 08-04-2023 ambulatory Juan Francisco Hutchinson APRN.INTERNET MARKETING CONSULTANT Work Phone: Palliative Medicine Start: 08-04-2023 Patient encounter procedure Juan Francisco Emely HENLEY.INTERNET MARKETING CONSULTANT Work Phone: Palliative Medicine Comment on above: Appointment Start: 08-01-2023 ambulatory Radha Ruano LORY.INTERNET MARKETING CONSULTANT Work Phone: Pulmonary Medicine Start: 08-01-2023 Patient encounter procedure Radha Ruano TELEPHONE ANSWERING SERVICE OPERATOR.INTERNET MARKETING CONSULTANT Work Phone: Pulmonary Medicine Comment on above: Schedule Appointment Start: 07-30-2023 Orders Only Sherly Bruner PA-C Work Phone: Appointment Center Comment on above: Pain (Primary Dx) Start: 07-19-2023 End: 07-19-2023 ambulatory LOY WILBER Facility:[facility] Start: 07-19-2023 End: 07-19-2023 Subsequent hospital visit by physician [facility] Q[facility] ([facility]) Radiology Comment on above: Dysphagia, unspecifi ed type [R13.10] Start: 2023 End: 2023 ambulatory Juan Francisco Hutchinson APRN.INTERNET MARKETING CONSULTANT Work Phone: Palliative Medicine Comment on above: Memory Start: 2023 End: 2023 Patient encounter procedure Juan Francisco Hutchinson APRN.INTERNET MARKETING CONSULTANT Work Phone: Palliative Medicine Comment on above: Encounter for pallia tive care (Primary Dx); Muscle cramps; Nodular sclerosing Hodgkin's lymphoma, unspecified body region (HCC); Arthritis pain; 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); Chemotherapy-induced neuropathy (HCC); Cancer related pain Start: 07-10-2023 End: 07-10-2023 ambulatory Cynthia Guajardo [facility] Work Phone: [facility] Start: 07-10-2023 End: 07-10-2023 Patient encounter procedure Cynthia Guajardo [facility] Work Phone: [facility] Comment on above: Dysphagia, unspecifi ed type (Primary Dx) Start: 07-10-2023 End: 07-10-2023 Subsequent hospital visit by physician Gi/Gu [facility] Work Phone: [facility] Radiology Gastrointestinal Comment on above: Dysphagia, unspecifi ed type [R13.10] Start: 06-28-2023 End: 06-28-2023 ambulatory SUMMER CARVER Facility:[facility] Start: 06-28-2023 End: 06-28-2023 Patient encounter procedure Summer Carver MD Work Phone: Pulmonary Medicine Comment on above: Restrictive lung dis ease (Primary Dx); History of pulmonary embolism; Autologous bone marrow transplantation status (HCC); 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); Bronchiectasis without complication (HCC); Simple chronic bronchitis (HCC) Start: 06-14-2023 E-mail encounter fro m caregiver Radha Ruano APRN.INTERNET MARKETING CONSULTANT Work Phone: Pulmonary Medicine Start: 06-14-2023 Follow-up encounter Radha valentin APRN.INTERNET MARKETING CONSULTANT Work Phone: Pulmonary Medicine Comment on above: Follow Up Start: 06-13-2023 Telephone encounter Radha valentin TELEPHONE ANSWERING SERVICE OPERATOR.INTERNET MARKETING CONSULTANT Work Phone: Pulmonary Medicine Comment on above: Medication Authoriza tion Start: 06-13-2023 End: 06-13-2023 ambulatory RADHA RUANO Facility:[facility] Start: 06-13-2023 End: 06-13-2023 Office outpatient visit 40 minutes Radha Ruano TELEPHONE ANSWERING SERVICE OPERATOR.INTERNET MARKETING CONSULTANT Work Phone: Pulmonary Medicine Comment on above: [...] fatigue Start: 06-09-2023 Refill Juan Francisco Hutchinson APRN.INTERNET MARKETING CONSULTANT Work Phone: Palliative Medicine Comment on above: Refill Request Start: 06-07-2023 End: 06-07-2023 ambulatory LINETTE SKINNER Not Available Start: 06-03-2023 End: 06-03-2023 ambulatory JOSE VAIL Not Available Start: 05-31-2023 End: 05-31-2023 Subsequent hospital visit by physician Xr [facility] [place] Radiology Comment on above: Wheezing [R06.2] Start: 05-31-2023 End: 05-31-2023 Emergency department patient visit JOSE VAIL Facility:[facility] Start: 05-31-2023 End: 05-31-2023 Office outpatient visit 25 minutes Zoila Aguirre TELEPHONE ANSWERING SERVICE OPERATOR.INTERNET MARKETING CONSULTANT Work Phone: [facility] Comment on above: Restrictive lung dis ease (Primary Dx); Wheezing Start: 05-31-2023 End: 05-31-2023 ambulatory Gunjan Hi RT(R) Radiology Comment on above: Radiology XR Start: 05-31-2023 Patient encounter procedure Gunjan Hi RT(R) CCRickey [facility] Start: 05-28-2023 Refill Radha Ruano TELEPHONE ANSWERING SERVICE OPERATOR.INTERNET MARKETING CONSULTANT Work Phone: Pulmonary Medicine Comment on above: Med Change Request Start: 05-22-2023 End: 05-22-2023 ambulatory JOSE VAIL Facility:[facility] Start: 05-22-2023 End: 05-22-2023 Patient encounter procedure Loy Merino PA-C Work Phone: Otolaryngology Comment on above: Dysphagia, unspecifi ed type; Hoarseness; Gastroesophageal reflux disease, unspecified whether esophagitis present; LPRD (laryngopharyngeal reflux disease) Start: 05-21-2023 ambulatory Alexsander Ledezma MD Work Phone: Hematology/Oncology Comment on above: Pet scan Start: 05-20-2023 End: 05-20-2023 ambulatory CYN RAMIRES Facility:[facility] Start: 05-16-2023 End: 05-16-2023 ambulatory JUAN FRANCISCO HUTCHINSON Facility:[facility] Start: 05-12-2023 Refill Juan Francisco Hutchinson TELEPHONE ANSWERING SERVICE OPERATOR.INTERNET MARKETING CONSULTANT Work Phone: Palliative Medicine Comment on above: Refill Request Start: 05-10-2023 ambulatory Alexsander Ledezma MD Work Phone: Hematology/Oncology Comment on above: Pet scan Start: 05-07-2023 Refill Juan Francisco Hutchinson TELEPHONE ANSWERING SERVICE OPERATOR.INTERNET MARKETING CONSULTANT Work Phone: Palliative Medicine Comment on above: Refill Request Start: 04-19-2023 [facility] Start: 04-19-2023 End: 04-19-2023 Subsequent hospital visit by physician Xr [facility] Work Phone: [facility] Radiology General Comment on above: Influenza with pneum onia [J11.00] Start: 04-19-2023 End: 04-19-2023 amb[facility] Facility:[facility] Start: 04-19-2023 End: 04-19-2023 Office outpatient visit 40 minutes Radha Ruano TELEPHONE ANSWERING SERVICE OPERATOR.INTERNET MARKETING CONSULTANT Work Phone: Pulmonary Medicine Comment on above: [...] fatigue Start: 04-09-2023 End: 04-09-2023 ambulatory JOSE A VAIL Not Available Start: 04-08-2023 Refill Juan Francisco Hutchinson TELEPHONE ANSWERING SERVICE OPERATOR.INTERNET MARKETING CONSULTANT Work Phone: Palliative Medicine Comment on above: Refill Request Start: 04-01-2023 Telephone encounter Linetet figueroa TELEPHONE ANSWERING SERVICE OPERATOR.INTERNET MARKETING CONSULTANT Work Phone: Hematology/Oncology Comment on above: Lab Orders Start: 03-29-2023 Refill Linette Skinner PLANT ASSIGNER Work Phone: [facility] Comment on above: COVID-19 Start: 03-29-2023 End: 03-29-2023 ambulatory LINETTE SKINNER Not Available Start: 03-29-2023 End: 03-29-2023 Office outpatient visit 15 minutes Linette Skinner PLANT ASSIGNER Work Phone: [facility] Comment on above: COVID-19 (Primary Dx ) Start: 03-28-2023 End: 03-28-2023 Office outpatient visit 25 minutes Kylie Nunes TELEPHONE ANSWERING SERVICE OPERATOR.INTERNET MARKETING CONSULTANT Work Phone: Pulmonary Medicine Comment on above: Restrictive lung dis ease (Primary Dx); Chronic cough; Post-nasal drip; Hoarseness; Dysphagia, unspecified type; History of pulmonary embolism Start: 03-28-2023 End: 03-28-2023 ambulatory JOSE A VAIL Pulmonary Medicine Comment on above: Spirometry Start: 03-28-2023 End: 03-28-2023 Patient encounter procedure Pulm Lab [facility] Re[facility] 2 Work Phone: JANAE Lopes [facility] Start: 03-20-2023 End: 03-20-2023 ambulatory ALEXSANDER LEDEZMA Facility:[facility] Start: 03-07-2023 End: 03-07-2023 ambulatory JUAN FRANCISCO HUTCHINSON Facility:[facility] Start: 02-25-2023 End: 02-25-2023 ambulatory LINETTE SKINNER Not Available Start: 02-19-2023 End: 02-19-2023 ambulatory ALEXSANDER LEDEZMA Facility:[facility] Start: 02-12-2023 End: 02-12-2023 ambulatory SHEILA Jorge LIN Not Available Start: 01-29-2023 End: 01-29-2023 Departed Referred MD Jose Vail Work Phone: [facility] [place] Work Phone: Start: 01-29-2023 End: 01-29-2023 ambulatory MD Jose Vail Work Phone: [employer] Other Start: 01-29-2023 Office outpatient vi sit 15 minutes Keke Bright [facility] Start: 01-28-2023 Telephone encounter Alexsander schmidt MD Work Phone: Hematology/Oncology Comment on above: Orders Start: 01-28-2023 End: 01-28-2023 ambulatory ALEXSANDER LEDEZMA Facility:[facility] Start: 01-06-2023 Refill Juan Francisco Hutchinson TELEPHONE ANSWERING SERVICE OPERATOR.INTERNET MARKETING CONSULTANT Work Phone: Palliative Medicine Comment on above: [...] 12-20-2022 End: 12-20-2022 ambulatory JUAN FRANCISCO HUTCHINSON Facility:[facility] Start: 12-16-2022 ambulatory Summer Carver MD Work Phone: JANAE ORTIZ [facility] Start: 12-16-2022 Patient encounter procedure Summer Carver MD Work Phone: Pulmonary Medicine Comment on above: Appointment Start: 11-28-2022 Refill yCn Ramires MD Work Phone: Hematology Comment on above: Refill Request Start: 11-26-2022 ambulatory Cyn Ramires MD Work Phone: JA[facility] ORTI[facility] Start: 11-26-2022 Patient encounter procedure Cyn Ramires MD Work Phone: Hematology Comment on above: Appointment Start: 11-13-2022 Refill Sylvia Mancilla TELEPHONE ANSWERING SERVICE OPERATOR.INTERNET MARKETING CONSULTANT Work Phone: Hematology Comment on above: Refill Request Start: 11-08-2022 Refill Cyn Ramires MD Work Phone: Hematology Comment on above: Refill Request Start: 11-05-2022 Refill Charlee Zhao TELEPHONE ANSWERING SERVICE OPERATOR.INTERNET MARKETING CONSULTANT Work Phone: [facility] Palliative Medicine Comment on above: Refill Request Start: 10-25-2022 Refill Cyn Ramires MD Work Phone: Hematology Comment on above: Refill Request Start: 10-23-2022 ambulatory Juan Francisco Hutchinson TELEPHONE ANSWERING SERVICE OPERATOR.INTERNET MARKETING CONSULTANT Work Phone: Palliative Medicine Comment on above: Lyrica Start: 10-18-2022 Telephone encounter Kylie Mosher RN [facility] Comment on above: Insurance Authorizat ion Start: 10-18-2022 End: 10-18-2022 Patient encounter procedure Juan Francisco Hutchinson TELEPHONE ANSWERING SERVICE OPERATOR.INTERNET MARKETING CONSULTANT Work Phone: Palliative Medicine Comment on above: Palliative care by s pecialist (Primary Dx); Nodular sclerosing Hodgkin's lymphoma, unspecified body region (HCC); Cancer related pain; Opioid use agreement exists; Muscle cramps Start: 10-18-2022 End: 10-18-2022 ambulatory JUAN FRANCISCO HUTCHINSON Facility:[facility] Start: 10-18-2022 End: 10-18-2022 Nursing evaluation of patient and report Nurse Derm [facility] [place] Work Phone: [facility]at[facility] [place] Comment on above: Hidradenitis suppura tiva (Primary Dx); Painful skin lesion Start: 10-08-2022 Refill Juan Francisco Hutchinson APRN.INTERNET MARKETING CONSULTANT Work Phone: [facility] Comment on above: Refill Request Start: 10-06-2022 Refill Juan Francisco Hutchinson APRN.INTERNET MARKETING CONSULTANT Work Phone: [facility] Comment on above: Refill Request Start: 10-01-2022 Refill Cyn Ramires MD Work Phone: Hematology Comment on above: Refill Request Start: 09-13-2022 End: 09-13-2022 Patient encounter procedure [...] Cyn Ramires MD Work Phone: JANAE ORTIZ [facility] Start: 08-13-2022 Refill Juan Francisco Hutchinson TELEPHONE ANSWERING SERVICE OPERATOR.INTERNET MARKETING CONSULTANT Work Phone: [facility] Palliative Medicine Comment on above: Refill Request Start: 08-09-2022 Refill Cyn Ramires MD Work Phone: Hematology Comment on above: Refill Request Start: 08-07-2022 Refill Cyn Ramires MD Work Phone: Hematology Comment on above: Refill Request Start: 08-02-2022 Telephone encounter Ella schafer TELEPHONE ANSWERING SERVICE OPERATOR.INTERNET MARKETING CONSULTANT Work Phone: Pulmonary Medicine Comment on above: Patient Update Start: 08-01-2022 End: 08-01-2022 Patient encounter procedure Ella Pretty TELEPHONE ANSWERING SERVICE OPERATOR.INTERNET MARKETING CONSULTANT Work Phone: Pulmonary Medicine Comment on above: Chronic cough (Prima ry Dx); Productive cough; Dyspnea on exertion; Opacity of lung on imaging study Start: 07-25-2022 ambulatory Nova Leija TELEPHONE ANSWERING SERVICE OPERATOR.INTERNET MARKETING CONSULTANT Work Phone: [facility] Start: 07-25-2022 Patient encounter procedure Nova Leija TELEPHONE ANSWERING SERVICE OPERATOR.INTERNET MARKETING CONSULTANT Work Phone: Dermatology [place] Comment on above: Appointment Start: 07-24-2022 Refill Cyn Ramires MD Work Phone: Hematology Comment on above: Refill Request Start: 07-22-2022 ambulatory Cyn Ramires MD Work Phone: Hematology Comment on above: Ativan Start: 07-19-2022 End: 07-19-2022 Patient encounter procedure Juan Francisco Hutchinson APRN.INTERNET MARKETING CONSULTANT Work Phone: Palliative Medicine Comment on above: Palliative care by s pecialist (Primary Dx); Opioid use agreement exists; Cancer related pain; Chemotherapy-induced neuropathy (HCC); 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); Muscle cramps Start: 07-18-2022 End: 07-18-2022 ambulatory Juan Francisco Hutchinson APRN.INTERNET MARKETING CONSULTANT Work Phone: [facility] Comment on above: Nodular sclerosing H odgkin's lymphoma, unspecified body region (HCC) (Primary Dx) Start: 07-18-2022 End: 07-18-2022 Patient encounter procedure Juan Francisco Hutchinson APRN.INTERNET MARKETING CONSULTANT Work Phone: Palliative Medicine Comment on above: Appointment Start: 07-17-2022 ambulatory Melissa Pycraft RT(R) Rad iology Ct Scan Comment on above: Radiology CT Start: 07-17-2022 Patient encounter procedure Melissa Pycraft RT(R) [facility] Start: 07-16-2022 Refill Juan Francisco Hutchinson APRN.INTERNET MARKETING CONSULTANT Work Phone: [facility] Palliative Medicine Comment on above: Refill Request Start: 06-21-2022 End: 06-21-[address] DOCTOR CHAVIRA Facility:[facility]1 Start: 06-13-2022 Telephone encounter Ella schafer TELEPHONE ANSWERING SERVICE OPERATOR.INTERNET MARKETING CONSULTANT Work Phone: Pulmonary Medicine Comment on above: New Medication Start: 06-12-2022 End: 06-12-2022 ambulatory Cyn Ramires MD Work Phone: Hematology Comment on above: 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); Uterine leiomyoma, unspecified location Start: 06-12-2022 End: 06-12-2022 Telemedicine consultation with patient Cyn Ramires MD Work Phone: [facility] Start: 06-11-2022 Refill Cyn Ramires MD Work Phone: Hematology Comment on above: Refill Request Start: 06-09-2022 ambulatory Cyn Ramires MD Work Phone: [facility] Start: 06-09-2022 Patient encounter procedure Cyn Ramires MD Work Phone: Hematology Comment on above: Appointment Start: 05-31-2022 End: 05-31-2022 Subsequent hospital visit by physician [facility] Leta Work Phone: Radiology Comment on above: Acute cough [R05.1] Start: 05-18-2022 End: 05-18-2022 Telemedicine consultation with patient Jane Del Valle MD Work Phone: [facility] Start: 05-18-2022 End: 05-18-2022 ambulatory [...] 04-23-2022 Patient encounter procedure Juan Francisco Hutchinson APRN.INTERNET MARKETING CONSULTANT Work Phone: Palliative Medicine Comment on above: Encounter for pallia tive care (Primary Dx); 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); Chemotherapy-induced neuropathy (HCC); Cancer related pain; Muscle cramps; Opioid use agreement exists Start: 04-20-2022 Telephone encounter Char garcia RN Work Phone: Radiation Oncology Comment on above: Post Radiation Treat ment Follow Up Start: 04-16-2022 Refill Juan Francisco Hutchinson APRN.INTERNET MARKETING CONSULTANT Work Phone: [facility] Comment on above: Refill Request Start: 04-11-2022 Patient encounter procedure Jane Del Valle MD Work Phone: [facility] Start: 04-11-2022 Radiation Oncology Note Jane [...] End: 03-23-2022 Patient encounter procedure [facility] Provider [facility] Comment on above: 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) Start: 03-23-2022 Radiation Oncology Note [facility] Provider [facility] Department Comment on above: RTT Injection Treatment Planning Start: 03-23-2022 End: 03-23-2022 Nursing evaluation of patient and report Nurse Cathleen Main Work Phone: Radiation Oncology Comment on above: 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); Autologous bone marrow transplantation status (HCC) Start: 03-22-2022 Telephone encounter Dary Gonzalez RN Radiation Oncology Start: 03-15-2022 Refill Lesley ruelas APRN.INTERNET MARKETING CONSULTANT Work Phone: [facility] Comment on above: Refill Request Start: 03-12-2022 End: 03-12-2022 ambulatory Jane Del Valle MD Work Phone: Radiation Oncology Comment on above: 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) Start: 03-12-2022 End: 03-12-2022 Telemedicine consultation with patient Jane Del Valle MD Work Phone: [facility] Start: 03-07-2022 End: 03-07-2022 ambulatory Cyn Ramires MD Work Phone: Hematology Comment on above: Chemotherapy-induced neuropathy (HCC) (Primary Dx) Start: 03-07-2022 End: 03-07-2022 Patient encounter procedure Cyn Ramires MD Work Phone: [facility] Start: 03-05-2022 Refill Sylvia Mancilla APRN.INTERNET MARKETING CONSULTANT Work Phone: Hematology Comment on above: Refill Request Start: 02-14-2022 End: 02-14-2022 ambulatory Treatment 11 Delfino Rej Work Phone: Hematology Comment on above: 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 Provider Hemonc Start: 01-25-2022 End: 01-26-2022 ambulatory JOSE Mikayal SALCEDOE Facility: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); Muscle cramps Start: 01-22-2022 Refill Juan Francisco Hutchinson APRN.INTERNET MARKETING CONSULTANT Work Phone: [facility] Comment on above: Refill Request Start: 01-19-2022 Refill Cyn Ramires MD Work Phone: Hematology Comment on above: Refill Request Start: 01-18-2022 End: 01-18-2022 ambulatory Treatment 12 Delfino Rej Work Phone: Hematology Comment on above: 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) Start: 01-17-2022 ambulatory Cyn Ramires MD Work Phone: [facility] Start: 01-17-2022 Patient encounter procedure Cyn Ramires MD Work Phone: Hematology Comment on above: Appointment Start: 01-15-2022 Refill Cheryl velázquez TELEPHONE ANSWERING SERVICE OPERATOR.INTERNET MARKETING CONSULTANT Work Phone: [facility] Palliative Medicine Comment on above: Refill [...] End: 12-27-2021 Patient encounter procedure Sylvia Mancilla TELEPHONE ANSWERING SERVICE OPERATOR.INTERNET MARKETING CONSULTANT Work Phone: [facility] Start: 12-17-2021 Refill Juan Francisco Hutchinson TELEPHONE ANSWERING SERVICE OPERATOR.INTERNET MARKETING CONSULTANT Work Phone: [facility] Palliative Medicine Comment on above: Refill Request Start: 12-11-2021 Refill Cyn Ramires MD Work Phone: Hematology Comment on above: Refill Request Start: 12-07-2021 End: 12-07-2021 Patient encounter procedure Nova Leija TELEPHONE ANSWERING SERVICE OPERATOR.INTERNET MARKETING CONSULTANT Work Phone: [facility] [place] Comment on above: Acne vulgaris (Prima ry Dx) Start: 12-06-2021 End: 12-06-2021 ambulatory Treatment 5 Delfino Rej Work Phone: Hematology Comment on above: 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) Start: 12-04-2021 Refill Cyn Ramires MD Work Phone: Hematology Comment on above: Refill Request Start: 12-03-2021 Refill Sylvia Mancilla APRN.INTERNET MARKETING CONSULTANT Work Phone: Hematology Comment on above: Refill [...] Cyn Ramires MD Work Phone: [facility] Start: 11-13-2021 ambulatory Cyn Ramires MD Work Phone: Hematology Comment on above: PET scan Start: 11-13-2021 Telephone encounter Jeny Zaidi Hematology/Oncology Comment on above: Orders Start: 11-07-2021 Refill Cyn Ramires MD Work Phone: Hematology Comment on above: Refill Request Start: 10-31-2021 Refill Juan Francisco Hutchinson APRN.INTERNET MARKETING CONSULTANT Work Phone: [facility] Comment on above: Refill Request Start: 10-26-2021 End: 10-26-2021 Patient encounter procedure Juan Francisco Hutchinson APRN.INTERNET MARKETING CONSULTANT Work Phone: [facility] Comment on [...] End: 10-25-2021 Patient encounter procedure Sylvia Mancilla TELEPHONE ANSWERING SERVICE OPERATOR.INTERNET MARKETING CONSULTANT Work Phone: [facility] Start: 10-17-2021 ambulatory Cyn Ramires MD Work Phone: Hematology Comment on above: Insurance Start: 10-16-2021 Refill Cheryl velázquez TELEPHONE ANSWERING SERVICE OPERATOR.INTERNET MARKETING CONSULTANT Work Phone: [facility] Palliative Medicine Comment on above: Refill [...] Cyn Ramires MD Work Phone: [facility] Start: 09-22-2021 Patient encounter procedure Cyn Ramires MD Work Phone: Hematology Comment on above: Appointment Start: 09-22-2021 Telephone encounter Caro Srinivasan RN Hematology Comment on above: Senior Technical Architect - E D Follow Up Start: 09-11-2021 Refill Cyn Ramires MD Work Phone: Hematology Comment on above: Refill Request Start: 09-06-2021 End: 09-06-2021 ambulatory Treatment 3 Delfino Rej Work Phone: Hematology Comment on above: 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) Start: 09-05-2021 End: 09-05-2021 Patient encounter procedure Nova Leija TELEPHONE ANSWERING SERVICE OPERATOR.INTERNET MARKETING CONSULTANT Work Phone: [facility] [place] Comment on above: Hidradenitis suppura tiva (Primary Dx); Painful skin lesion; Dermatofibroma of left knee Start: 09-03-2021 Refill Cyn Ramires MD Work Phone: Hematology Comment on above: Refill Request Start: 09-02-2021 Refill Gurpreet Rios Work Phone: [facility] Palliative Medicine Comment on above: Refill Request Start: 08-30-2021 Refill Cyn Ramires MD Work Phone: Hematology Comment on above: Refill Request Start: 08-16-2021 End: 08-16-2021 ambulatory Treatment 6 Delfino Rej Work Phone: Hematology Comment on above: 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) Start: 08-14-2021 Refill Juan Francisco Hutchinson APRN.INTERNET MARKETING CONSULTANT Work Phone: [facility] Palliative Medicine Comment on above: Refill Request Start: 08-03-2021 Telephone encounter Kristina Pete RN Mobile [employer] Comment on above: Care Coordination (P all med referral) Start: 07-31-2021 Orders Only Cyn Ramires MD Work Phone: Hematology Comment on above: Muscle cramps; Nodular sclerosis classical Hodgkin lymphoma (HCC) Start: 07-30-2021 ambulatory Juan Francisco Hutchinson APRN.INTERNET MARKETING CONSULTANT Work Phone: [facility] Start: 07-30-2021 Patient encounter procedure Juan Francisco Hutchinson APRN.INTERNET MARKETING CONSULTANT Work Phone: [facility] Palliative Medicine Comment on above: Saturday appointmen t Start: 07-28-2021 End: 07-28-2021 Patient encounter procedure Nova Webstertz TELEPHONE ANSWERING SERVICE OPERATOR.INTERNET MARKETING CONSULTANT Work Phone: [facility] [place] Comment on above: Hidradenitis suppura tiva (Primary Dx); Painful skin lesion Start: 07-26-2021 End: 07-26-2021 ambulatory Treatment 12 Delfino Rej Work Phone: Hematology Comment on above: 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) Start: 07-24-2021 End: 07-24-[address] [facility] Facility:[facility] Start: 2021 Refill Cyn Ramires MD Work [...] Request Start: 06-15-2021 Refill Juan Francisco Hutchinson APRN.INTERNET MARKETING CONSULTANT Work Phone: [facility] Palliative Medicine Comment on above: Refill [...] Cyn Ramires MD Work Phone: [facility] Start: 06-06-2021 Refill Cyn Ramires MD Work [...] 05-17-2021 Patient encounter procedure Juan Francisco Hutchinson APRN.INTERNET MARKETING CONSULTANT Work Phone: [facility] Palliative Medicine Comment on above: Encounter for pallia tive care (Primary Dx); 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); Cancer related pain; Chemotherapy-induced neuropathy (HCC); Muscle cramps; Anxiety Refill Request Start: 05-17-2021 Refill Sylvia Mancilla APRN.INTERNET MARKETING CONSULTANT Work Phone: Hematology Comment on above: Refill Request Start: 05-17-2021 Telephone encounter Zaira DELANEY Work Phone: Hematology Comment on above: Senior Technical Architect - O ther Start: 05-16-2021 ambulatory Cyn Ramires MD Work Phone: [facility] Start: 05-16-2021 Patient encounter procedure Cyn Ramires MD Work Phone: Hematology Comment on above: Appointment 05/17 Start: 02-02-2021 End: 02-02-2021 ambulatory Kylie Johnson Other [employer] Other Start: 02-02-2021 Office outpatient vi sit 15 minutes Kylie Johnson [facility] Start: 09-07-2014 End: 12-26-2015 Patient encounter status Juan Francisco Hutchinson APRN.INTERNET MARKETING CONSULTANT Work Phone: [facility] Procedures Date Procedure Procedure Detail Performing Clinician Start: 10-15-2023 Noninvasive ear/puls e oximetry multiple deter Radha Irasemabrandyn TELEPHONE ANSWERING SERVICE OPERATOR.INTERNET MARKETING CONSULTANT Work Phone: Start: 10-09-2023 Radiologic examinati on sacroiliac jnts <3 views Simin Brandt MD Work Phone: Start: 08-27-2023 Injection 1 tendon sheath/ligament aponeurosis Sherly Bruner PA-C Work Phone: Start: 07-19-2023 Radiologic exam esop hagus single contrast study Loy DICKERSON-C Work Phone: Start: 07-10-2023 Radiologic exam swal low function contrast study Loy Merino PA-C Work Phone: Start: 05-31-2023 Radiologic exam ches t 2 views Zoila Aguirre TELEPHONE ANSWERING SERVICE OPERATOR.INTERNET MARKETING CONSULTANT Work Phone: Start: 03-28-2023 Nitric oxide gas determination Ellanan Pretty TELEPHONE ANSWERING SERVICE OPERATOR.INTERNET MARKETING CONSULTANT Work Phone: Start: 03-28-2023 Co diffusing capacity L atnan Rocio TELEPHONE ANSWERING SERVICE OPERATOR.INTERNET MARKETING CONSULTANT Work Phone: Start: 05-31-2022 Ct thorax w/o contra st material Cyn Ramires MD Work Phone: Start: 10-25-2021 Adult depression scr eening assessment Treatment Rej Work Phone: Start: 06-14-2021 Adult depression scr eening assessment Cyn Ramires MD Work Phone: Start: 03-08-2021 Adult depression scr eening assessment Sylvia Mancilla TELEPHONE ANSWERING SERVICE OPERATOR.INTERNET MARKETING CONSULTANT Work Phone: Start: 10-17-2018 Mammography Linette Colette y PLANT ASSIGNER Work Phone: Plan of Treatment Date Care Activity Detail Author Start: 03-11-2024 Urine microalbumin profile [facility] Start: 01-03-2024 End: 01-03-2024 Patient encounter procedure Cardiology Comment on above: Pleural effusion, left [J90]; Pulmonary hypertension (HCC) [I27.20] Pleural effusion, le ft [J90] Start: 11-14-2023 End: 11-14-2023 ambulatory Palliative Medicine Comment on above: FU in 4 weeks VV Start: 11-11-2023 End: 11-11-2023 Follow-up encounter 11/11/2023 10:30 AM EDT Visit (SP) Office Hematology/Oncology [address] [place] [address] Alexsander Ledezma MD [address] [place] [address] [place] [address] 3 month follow up with lab Hematology/Oncology Comment on above: 3 month follow up with lab Start: 11-11-2023 End: 11-11-2023 Patient encounter procedure [facility] Comment on above: 3 month follow up with lab LABS Start: 10-31-2023 End: 10-31-2023 Patient encounter procedure 10/31/2023 9:00 AM EDT Office Visit Pain Management [address] [place] [address] Katarzyna Orosco, TELEPHONE ANSWERING SERVICE OPERATOR.INTERNET MARKETING CONSULTANT [address] [place] [address] Chronic pain Pain Management Comment on above: Chronic pain Start: 10-28-2023 End: 10-28-2023 Patient encounter procedure [facility] Radiology Ultrasound Comment on above: Pleural effusion, left [J90] Pleural effusion, le ft [J90]; Pulmonary hypertension (HCC) [I27.20] Start: 10-20-2023 Influenza vaccination [facility] Start: 10-17-2023 End: 10-17-2023 Patient encounter procedure 10/17/2023 10:00 AM EDT Office Visit Palliative Medicine [address] [place] [address] Juan Francisco Hutchinson, TELEPHONE ANSWERING SERVICE OPERATOR.INTERNET MARKETING CONSULTANT [address] [place] [address] schedule in office with me in about 4 weeks Palliative Medicine Comment on above: schedule in office with me in about 4 we eks Start: 10-15-2023 End: 10-15-2023 Patient encounter procedure 10/15/2023 10:15 AM EDT Procedure Pulmonary Medicine [address] [place] [address] Pulmonary hypertension (HCC) [I27.20] Pulmonary Medicine Comment on above: Pulmonary hypertension (HCC) [I27.20] Start: 10-09-2023 End: 10-09-2023 Patient encounter procedure 10/09/2023 11:00 AM EDT Office Visit Rheumatology [address] [place] [address] Simin Brandt MD [address] [place] [address] Psoriatic arthritis (HCC) [L40.50] Rheumatology Comment on above: Psoriatic arthritis (HCC) [L40.50] Start: 10-08-2023 End: 10-08-2023 ambulatory 10/08/2023 12:00 PM EDT OT/PT/Speech Visit [facility] Speech Therapy [address] [place] [address] Jeny Rahman, [facility] RECEPTIONIST [address] [place] [address] Hoarseness [R49.0] [facility] Comment on above: Hoarseness [R49.0] Start: 10-08-2023 End: 10-08-2023 Patient encounter procedure 10/08/2023 8:00 AM EDT Office Visit Rheumatology [address] [place] [address] Simin Brandt MD [address] [place] [address] Psoriatic arthritis (HCC) [L40.50] Rheumatology Comment on above: Psoriatic arthritis (HCC) [L40.50] Start: 10-03-2023 End: 10-03-2023 Patient encounter procedure 10/03/2023 10:00 AM EDT Appointment [facility] Radiology Gastrointestinal [address] [place] [address] XR ESOPHAGRAM [facility] Radiology Gastrointestinal Comment on above: XR ESOPHAGRAM Start: 09-26-2023 End: 09-26-2023 Patient encounter procedure Pulmonary Medicine Comment on above: Return in about 6 months (around ). Pulmonary hypertensi on (HCC) [I27.20] Start: 09-23-2023 End: 09-23-2023 Patient encounter procedure 09/23/2023 11:30 AM EDT Office Visit Cardiology [address] [place] [address] [place] [address] [place] [address] Pleural effusion, left [J90]; Pulmonary hypertension (HCC) [I27.20] Cardiology Comment on above: Pleural effusion, left [J90]; Pulmonary hypertension (HCC) [I27.20] Start: 09-19-2023 End: 09-19-2023 ambulatory 09/19/2023 10:00 AM EDT [facility] Palliative Medicine [address] [place] [address] Juan Francisco Hutchinson, LORY.INTERNET MARKETING CONSULTANT [address] [place] [address] Please schedule in 5 weeks virtually Palliative Medicine Comment on above: Please schedule in 5 weeks virtually Start: 09-18-2023 End: 09-18-2023 Patient encounter procedure 09/18/2023 9:40 AM EDT Office Visit Otolaryngology [address] [place] [address] Loy Merino PA-C [address] [place] [address] Return for Follow up after MBS, XR esophagram; sooner if clinically indicated.. Otolaryngology Comment on above: Return for Follow up after MBS, XR esoph agram; sooner if clinically indicated.. Start: 09-16-2023 End: 09-16-2023 ambulatory 09/16/2023 2:30 PM EDT [facility] Palliative Medicine [address] [place] [address] Juan Francisco Hutchinson, TELEPHONE ANSWERING SERVICE OPERATOR.INTERNET MARKETING CONSULTANT [address] [place] [address] Please schedule in 5 weeks virtually Palliative Medicine Comment on above: Please schedule in 5 weeks virtually Start: 08-27-2023 End: 08-27-2023 Patient encounter procedure 08/27/2023 8:00 AM EDT Office Visit Orthopaedics [address] [place], [place] [id number] Sherly Bruner, PAEnriqueC [address] [place] [address] right wrist pain Orthopaedics Comment on above: right wrist pain Start: 08-18-2023 Influenza vaccination Influenza Vaccine (#1) [facility] Comment on above: Postponed from 10/19/2022 (Patient Refus ed) Start: 08-12-2023 End: 08-12-2023 Patient encounter procedure General Radiology Comment on above: right wrist pain Return in about 4 we eks (around 08/08/2023) for virtual visit . Start: 08-08-2023 End: 08-08-2023 ambulatory 08/08/2023 10:00 AM EDT [facility] Palliative Medicine [facility] [place] [address] Juan Francisco Hutchinson, TELEPHONE ANSWERING SERVICE OPERATOR.INTERNET MARKETING CONSULTANT [address] [facility] [place] [address] Return in about 4 weeks (around 08/08/2023) for virtual visit . Palliative Medicine Comment on above: Return in about 4 weeks (around ) for virtual visit . Start: 08-06-2023 End: 08-06-2023 Patient encounter procedure 08/06/2023 7:00 AM EDT Office Visit Pulmonary Medicine [address] [place] [address] Radha Ruano, TELEPHONE ANSWERING SERVICE OPERATOR.INTERNET MARKETING CONSULTANT [address] [place] [address] Hospital Follow Up for Pneumonia Pulmonary Medicine Comment on above: Hospital Follow Up for Pneumonia Start: 08-05-2023 End: 08-05-2023 ambulatory 08/05/2023 10:15 AM EDT Visit (SP) Office Hematology/Oncology [address] [place] [address] Alexsander Ledezma MD [address] [place] [address] 8 week lab Hematology/Oncology Comment on above: 8 week lab Start: 08-05-2023 End: 08-05-2023 Patient encounter procedure 08/05/2023 10:00 AM EDT Office Visit [facility] [address] [place] [address] 8 week lab [facility] Comment on above: 8 week lab Start: 07-19-2023 End: 07-19-2023 Patient encounter procedure 07/19/2023 1:20 PM EDT Appointment Radiology [address] [facility] [address] XR ESOPHAGRAM Radiology Comment on above: XR ESOPHAGRAM Start: 07-17-2023 End: 07-17-2023 Patient encounter procedure 07/17/2023 9:40 AM EDT Office Visit Otolaryngology [address] [facility] [place] [address] Loy Merino PA-C [address] [place] [address] Return for Follow up after MBS, XR esophagram; sooner if clinically indicated.. Otolaryngology Comment on above: Return for Follow up after MBS, XR esoph agram; sooner if clinically indicated.. Start: 07-12-2023 End: 07-12-2023 Patient encounter procedure [facility] Radiology Ultrasound Comment on above: Pleural effusion, left [J90] Pleural effusion, le ft [J90]; Pulmonary hypertension (HCC) [I27.20] Start: 2023 End: 2023 Patient encounter procedure 2023 10:00 AM EDT Office Visit Palliative Medicine [address] [place] [address] Juan Francisco Hutchinson, TELEPHONE ANSWERING SERVICE OPERATOR.INTERNET MARKETING CONSULTANT [address] [place] [address] Return in about 8 weeks (around 2023). Palliative Medicine Comment on above: Return in about 8 weeks (around ). Start: 07-10-2023 End: 07-10-2023 Patient encounter procedure [facility] Radiology Gastrointestinal Comment on above: Dysphagia, unspecified type [R13.10] Start: 07-04-2023 Medicare Annual Wellness (AWV) Medicare Annual Wellness (AWV) [facility] Start: 06-28-2023 End: 06-28-2023 Patient encounter procedure 06/28/2023 11:00 AM EDT Office Visit Pulmonary Medicine [address] [place] [address] [place] [address] [place] [address] Carver Ms. Potts also needs to be added onto Dr. Carver's schedule at [facility] on Saturday06/28/23 at 11 am (it is a hospital day for her but adding her on per Dr. Carver). Dr. Carver would also like her put on the cancellation list for a sooner appt. Pulmonary Medicine Comment on above: ok per Dr. Carver Ms. Potts also needs to be added onto Dr. Carver's schedule at [facility] on Saturday06/28/23 at 11 am (it is a hospital day for her but adding her on per Dr. Carver). Dr. Carver would also like her put on the cancellation list for a sooner appt. Start: 06-13-2023 End: 06-13-2023 Patient encounter procedure 06/13/2023 11:00 AM EDT Office Visit Pulmonary Medicine [address] [place] [address] Radha Ruano APRN.INTERNET MARKETING CONSULTANT [address] [place] [address] follow up for express care Pulmonary Medicine Comment on above: follow up for express care Start: 06-03-2023 End: 06-03-2023 Patient encounter procedure 06/03/2023 8:30 AM EDT Office Visit [facility] [address] [address] Jose Vail MD [address] 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 Work Phone: Comment on above: Expected: 04/16/2023, Expires: 4 Start: 02-18-2023 Behavioral Health Screening Behavioral Health Screening [facility] Start: 02-18-2023 Depression Assessment Depression Assessment [facility] Start: 01-29-2023 Bacteria identified in Urine by Culture [facility] Start: 01-28-2023 End: 04-29-2023 Cortisol [Mass/volume] in Serum or Plasma [facility] Work Phone: Comment on above: Expected: 01/28/2023, Expires: 4 Start: 10-25-2022 Adult depression screening assessment DEPRESSION SCREENING [facility] Start: 10-21-2022 Screening for malignant neoplasm of cervix [facility] Start: 10-19-2022 Influenza vaccination [facility] Start: 08-01-2022 End: 10-01-2022 Bacteria identified in Unspecified specimen by Respiratory culture RESP CULTURE + STAIN Microbiology Routine Productive cough Expected: 08/01/2022, Expires: 10/01/[address] 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 Work Phone: Comment on above: Expected: 04/10/2022, Expires: 3 Start: 03-08-2022 Adult depression screening assessment DEPRESSION SCREENING [facility] Start: 02-18-2022 DEPRESSION ASSESSMENT DEPRESSION ASSESSMENT [facility] Start: 01-25-2022 End: 03-27-2022 PAIN PANEL, UR QUANT 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 Work Phone: Comment on above: Expected: 09/06/2021, Expires: 2 Start: 02-18-2021 DEPRESSION ASSESSMENT DEPRESSION ASSESSMENT [facility] Start: 10-19-2020 Influenza vaccination INFLUENZA (#1) [facility] Start: 09-08-2019 HPV TESTING HPV TESTING [facility] Start: 09-08-2019 Screening for malignant neoplasm of cervix HPV Testing [facility] Start: 10-21-2018 Screening for malignant neoplasm of cervix Cervical Cancer Screening [facility] Start: 10-26-2017 PAP TESTING PAP TESTING [facility] Start: 10-26-2017 Screening for malignant neoplasm of cervix [facility] Start: 06-17-2015 PNEUMOCOCCAL (2 - PPSV23 if available, else PCV20) PNEUMOCOCCAL (2 - PPSV23 if available, else PCV20) [facility] Start: 06-17-2015 PNEUMOCOCCAL (2 - PPSV23 or PCV20) PNEUMOCOCCAL (2 - PPSV23 or PCV20) [facility] Start: 08-11-2014 PNEUMOCOCCAL (2 - PPSV23 if available, else PCV20) PNEUMOCOCCAL (2 - PPSV23 if available, else PCV20) [facility] Start: 08-11-2014 PNEUMOCOCCAL (2 - PPSV23 or PCV20) PNEUMOCOCCAL (2 - PPSV23 or PCV20) [facility] Start: 08-11-2014 Pneumococcal vaccination [facility] Start: 07-12-2003 Screening for malignant neoplasm of cervix Pap Smear [facility] Start: 2001 SHINGRIX VACCINE (1 of 2) SHINGRIX VACCINE (1 of 2) [facility] Start: 2001 TWO PNEUMOVAX 5 YEARS APART PRIOR TO AGE 65 (#1) TWO PNEUMOVAX 5 YEARS APART PRIOR TO AGE 65 (#1) [facility] Start: 2000 Anxiety Screening Anxiety Screening [facility] Start: 2000 Depression Screening Depression Screening [facility] Start: 1994 COVID-19 VACCINE (1) COVID-19 VACCINE (1) [facility] Start: 07-12-1987 COVID-19 VACCINE (#1) COVID-19 VACCINE (#1) [facility] Start: 01-11-1983 COVID-19 VACCINE (#1) COVID-19 VACCINE (#1) [facility] Bacteria identified in Unspecified specimen by Respiratory culture RESPIRATORY CULTURE AND STAIN Microbiology Routine Bronchitis Restrictive lung disease Ordered: 06/13/[address] [facility] Work Phone: Comment on above: Ordered: 06/13/2023 End: 03-30-2023 CBC W Auto Differential panel - Blood CBC + DIFF Lab Routine 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 Occurrences starting 03/31/2022 until 03/30/[address] 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 Work Phone: Comment on above: Ordered: 05/17/2021 End: 03-30-2023 Comprehensive metabolic 2000 panel - Serum or Plasma COMP METABOLIC PANEL Lab Routine 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 Occurrences starting 03/31/2022 until 03/30/[address] [facility] Work Phone: Comment on above: Every other week for 25 Occurrences star ting 03/31/2022 until 03/30/2023 COVID & INFLUENZA A/ B & RSV NAAT, ROUTINE COVID & INFLUENZA A/B & RSV NAAT, ROUTINE Microbiology Routine Wheezing 05/31/2023 3:30 PM EDT [facility] Work Phone: End: 12-27-2022 Echocardiography ECHO Cardiology Routine Nodular sclerosing Hodgkin's lymphoma, unspecified body region (HCC) JOE (dyspnea on exertion) Chronic cough 1 Occurrences starting 12/27/2021 until 12/27/[address] [facility] Work Phone: Comment on above: 1 Occurrences starting 12/27/2021 until 12/27/2022 End: 09-01-2023 LUNG DIFFUSION CAPACITY (DLCO) LUNG DIFFUSION CAPACITY (DLCO) PFT Routine Chronic cough 1 Occurrences starting 08/02/2022 until 09/01/[address] [facility] Work Phone: Comment on above: 1 Occurrences starting 08/02/2022 until 09/01/2023 LUNG DIFFUSION CAPAC ITY (DLCO) LUNG DIFFUSION CAPACITY (DLCO) PFT Routine Chronic cough 03/28/2023 1:39 PM EST [facility] Work Phone: End: 09-01-2023 NITRIC OXIDE, EXHALED NITRIC OXIDE, EXHALED PFT Routine Bronchitis 1 Occurrences starting 08/02/2022 until 09/01/[address] 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 Work Phone: Comment on above: 1 Occurrences starting 06/14/2021 until 07/14/2022 End: 12-15-2022 NM PET/CT SKULL-THIGH SUBSEQUENT NM PET/CT SKULL-THIGH SUBSEQUENT Radiology Routine Nodular sclerosing Hodgkin's lymphoma, unspecified body region (HCC) 1 Occurrences starting 11/15/2021 until 12/15/[address] [facility] Work Phone: Comment on above: 1 Occurrences starting 11/15/2021 until 12/15/2022 End: 08-17-2023 NM PET/CT SKULL-THIGH SUBSEQUENT NM PET/CT SKULL-THIGH SUBSEQUENT Radiology Routine Nodular sclerosing Hodgkin's lymphoma, unspecified body region (HCC) 1 Occurrences starting 07/18/2022 until 08/17/[address] 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 Work Phone: Comment on above: 1 Occurrences starting 01/01/2023 until 01/31/2024 End: 09-04-2024 OXIMETRY WITH AMBULATION OXIMETRY WITH AMBULATION PFT Routine Pulmonary hypertension (HCC) 1 Occurrences starting 08/06/2023 until 09/04/[address] [facility] Work Phone: Comment on above: 1 Occurrences starting 08/06/2023 until 09/04/2024 End: 06-20-2024 RF videography Hypopharynx and Esophagus Views W liquid and paste contrast PO during swallowing XR MODIFIED BARIUM SWALLOW W SPEECH THERAPY Radiology Routine Dysphagia, unspecified type 1 Occurrences starting 05/22/2023 until 06/20/[address] [facility] Work Phone: Comment on above: 1 Occurrences starting 05/22/2023 until 06/20/2024 End: 09-01-2023 SPIROMETRY - BASELINE AND POST DILATOR SPIROMETRY - BASELINE AND POST DILATOR PFT Routine Chronic cough 1 Occurrences starting 08/02/2022 until 09/01/[address] [facility] Work Phone: Comment on above: 1 Occurrences starting 08/02/2022 until 09/01/2023 SPIROMETRY - BASELIN E AND POST DILATOR SPIROMETRY - BASELINE AND POST DILATOR PFT Routine Chronic cough 03/28/2023 1:39 PM EST 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 Work Phone: Comment on above: Ordered: 05/17/2021 End: 03-30-2023 Thyrotropin [Units/volume] in Serum or Plasma TSH BLD Lab Routine 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 Occurrences starting 03/31/2022 until 03/30/[address] [facility] Work Phone: Comment on above: Every other week for 25 Occurrences star ting 03/31/2022 until 03/30/2023 End: 03-30-2023 Thyroxine (T4) free [Mass/volume] in Serum or Plasma T4 FREE/FREE THYROX Lab Routine 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 Occurrences starting 03/31/2022 until 03/30/[address] [facility] Work Phone: Comment on above: Every other week for 25 Occurrences star vijaya 03/31/2022 until 03/30/2023 End: 07-13-2024 US Chest US CHEST EFFUSION SURVEY Radiology Routine Pleural effusion, left 1 Occurrences starting 06/14/2023 until 07/13/[address] [facility] Work Phone: Comment on above: 1 Occurrences starting 06/14/2023 until 07/13/2024 End: 05-18-2024 XR Chest PA and Lateral XR CHEST 2V FRONTAL/LAT Radiology Routine Influenza with pneumonia 1 Occurrences starting 04/19/2023 until 05/18/[address] [facility] Work Phone: Comment on above: 1 Occurrences starting 04/19/2023 until 05/18/2024 XR Chest PA and Lateral XR CHEST 2V FRONTAL/LAT Radiology Routine Influenza with pneumonia 04/19/2023 9:38 AM EST [facility] Work Phone: End: 09-04-2024 XR Chest PA and Lateral XR CHEST 2V FRONTAL/LAT Radiology Routine Pneumonia due to infectious organism, unspecified laterality, unspecified part of lung 1 Occurrences starting 08/06/2023 until 09/04/2024 [facility] Comment on above: 1 Occurrences starting 08/06/2023 until 09/04/2024 End: 06-20-2024 XR Esophagus Views W contrast PO XR ESOPHAGRAM Radiology Routine Dysphagia, unspecified type Gastroesophageal reflux disease, unspecified whether esophagitis present 1 Occurrences starting 05/22/2023 until 06/20/[address] [facility] Work Phone: Comment on above: 1 Occurrences starting 05/22/2023 until 06/20/2024 End: 08-28-2024 XR Wrist - right PA and Lateral and Oblique XR WRIST GENERAL 3V PA/LAT/OBL RIGHT Radiology Routine Pain 1 Occurrences starting 07/31/2023 until 08/28/[address] [facility] Work Phone: Comment on above: 1 Occurrences starting 07/31/2023 until 08/28/2024 [facility] c [facility] c [facility] c [facility] c [facility] Immunizations Immunization Date Immunization Notes Care Provider Fa cili 12-16-2014 influenza, injectabl e, quadrivalent, preservative free Sylvia Mancilla TELEPHONE ANSWERING SERVICE OPERATOR.INTERNET MARKETING CONSULTANT Work Phone: [facility] 12-16-2014 influenza virus vacc ine, unspecified formulation Charlee Zhao TELEPHONE ANSWERING SERVICE OPERATOR.INTERNET MARKETING CONSULTANT Work Phone: [facility] 06-16-2014 hepatitis A and hepa titis B vaccine Sylvia Mancilla TELEPHONE ANSWERING SERVICE OPERATOR.INTERNET MARKETING CONSULTANT Work Phone: [facility] 06-16-2014 pneumococcal conjuga te vaccine, 13 valent Sylvia Mancilla TELEPHONE ANSWERING SERVICE OPERATOR.INTERNET MARKETING CONSULTANT Work Phone: [facility] 03-11-2014 diphtheria and tetan us toxoids, adsorbed for pediatric use Sylvia Gross TELEPHONE ANSWERING SERVICE OPERATOR.INTERNET MARKETING CONSULTANT Work Phone: [facility] 03-11-2014 haemophilus influenz ae type b vaccine, PRP-OMP conjugate Sylvia Gross TELEPHONE ANSWERING SERVICE OPERATOR.INTERNET MARKETING CONSULTANT Work Phone: [facility] 03-11-2014 meningococcal polysaccharide vaccine (MPSV4) Sylvia Gross TELEPHONE ANSWERING SERVICE OPERATOR.INTERNET MARKETING CONSULTANT Work Phone: [facility] 03-11-2014 pneumococcal conjuga te vaccine, 13 valent Sylvia Gross TELEPHONE ANSWERING SERVICE OPERATOR.INTERNET MARKETING CONSULTANT Work Phone: [facility] 03-11-2014 poliovirus vaccine, inactivated Sylvia Gross TELEPHONE ANSWERING SERVICE OPERATOR.INTERNET MARKETING CONSULTANT Work Phone: [facility] 03-11-2014 tetanus toxoid, adsorbed Josi ka Gross TELEPHONE ANSWERING SERVICE OPERATOR.INTERNET MARKETING CONSULTANT Work Phone: [facility] 03-11-2014 tetanus toxoid, redu jessica diphtheria toxoid, and acellular pertussis vaccine, adsorbed Sylvia Gross TELEPHONE ANSWERING SERVICE OPERATOR.INTERNET MARKETING CONSULTANT Work Phone: [facility] 12-21-2013 diphtheria and tetan us toxoids, adsorbed for pediatric use Sylvia Gross TELEPHONE ANSWERING SERVICE OPERATOR.INTERNET MARKETING CONSULTANT Work Phone: [facility] 12-21-2013 haemophilus influenz ae type b vaccine, PRP-OMP conjugate Sylvia Gross TELEPHONE ANSWERING SERVICE OPERATOR.INTERNET MARKETING CONSULTANT Work Phone: [facility] 12-21-2013 hepatitis A and hepa titis B vaccine Sylvia Gross TELEPHONE ANSWERING SERVICE OPERATOR.INTERNET MARKETING CONSULTANT Work Phone: [facility] 12-21-2013 influenza, injectabl e, quadrivalent, preservative free Sylvia Gross TELEPHONE ANSWERING SERVICE OPERATOR.INTERNET MARKETING CONSULTANT Work Phone: [facility] 12-21-2013 pneumococcal conjuga te vaccine, 13 valent Sylvia Gross TELEPHONE ANSWERING SERVICE OPERATOR.INTERNET MARKETING CONSULTANT Work Phone: [facility] 12-21-2013 poliovirus vaccine, inactivated Sylvia Gross TELEPHONE ANSWERING SERVICE OPERATOR.INTERNET MARKETING CONSULTANT Work Phone: [facility] 10-14-2013 haemophilus influenz ae type b vaccine, PRP-OMP conjugate Sylvia Gross TELEPHONE ANSWERING SERVICE OPERATOR.INTERNET MARKETING CONSULTANT Work Phone: [facility] 10-14-2013 hepatitis A and hepa titis B vaccine Sylvia Gross TELEPHONE ANSWERING SERVICE OPERATOR.INTERNET MARKETING CONSULTANT Work Phone: [facility] 10-14-2013 Meningococcal Groups C and Y and Haemophilus b Tetanus Toxoid Conjugate Vaccine Sylvia Gross TELEPHONE ANSWERING SERVICE OPERATOR.INTERNET MARKETING CONSULTANT Work Phone: [facility] 10-14-2013 pneumococcal conjuga te vaccine, 13 valent Sylvia Gross TELEPHONE ANSWERING SERVICE OPERATOR.INTERNET MARKETING CONSULTANT Work Phone: [facility] [facility] 10[facility]2013 poliovirus vaccine, inactivated Sylvia Gross TELEPHONE ANSWERING SERVICE OPERATOR.INTERNET MARKETING CONSULTANT Work Phone: [facility] 10-14-2013 tetanus toxoid, redu jessica diphtheria toxoid, and acellular pertussis vaccine, adsorbed Sylvia Gross TELEPHONE ANSWERING SERVICE OPERATOR.INTERNET MARKETING CONSULTANT Work Phone: [facility] 09-01-2010 hepatitis B vaccine, adult dosage Sylvia Gross TELEPHONE ANSWERING SERVICE OPERATOR.INTERNET MARKETING CONSULTANT Work Phone: [facility] 04-04-2010 hepatitis B vaccine, adult dosage Sylvia Gross TELEPHONE ANSWERING SERVICE OPERATOR.INTERNET MARKETING CONSULTANT Work Phone: [facility] 03-04-2010 hepatitis B vaccine, adult dosage Sylvia Gross TELEPHONE ANSWERING SERVICE OPERATOR.INTERNET MARKETING CONSULTANT Work Phone: [facility] 11-11-2007 hepatitis B vaccine, pediatric or pediatric/adolescent dosage Sylvia Gross TELEPHONE ANSWERING SERVICE OPERATOR.INTERNET MARKETING CONSULTANT Work Phone: [facility] 10-14-2007 hepatitis B vaccine, pediatric or pediatric/adolescent dosage Sylvia Gross TELEPHONE ANSWERING SERVICE OPERATOR.INTERNET MARKETING CONSULTANT Work Phone: [facility] Payers Date Payer Category Payer Self-pay [id number] 2020 Medicaid MEDICAID [facility] MEDICAID [id number] 2020-Present [phone] [address] [place] [address] Medicaid [id number] 2020 Medicaid [id number] 2014 Medicare MEDICARE MEDICAR E A AND B [id number] 2014-Present [phone] [address] [address] [place] [address] Medicare [id number] 2014 Medicare [id number] 1982 Unknown [id number] 1982 Unknown [id number] 1982 Unknown [id number] 1982 Unknown [id number] 1982 Unknown [id number] 1982 Unknown [id number] 1982 Unknown [id number] 1982 Unknown [id number] 1982 Unknown [id number] 1982 Unknown [id number] 1959 Medicaid [id number] 1959 Medicare [id number] 1959 Medicare [id number] Unknown [id number] Social History Date Type Detail Facility Start: 01-28-2012 End: 10-09-2023 Tobacco smoking status NHIS Ex-smoker [facility] Start: 01-17-2002 End: 01-18-2012 History of tobacco use Current smoker [facility] Start: 01-17-2002 End: 01-18-2012 History of tobacco use Cigarette Smoker [facility] Start: 01-28-2012 End: 10-09-2023 Tobacco use and exposure Smokeless tobacco non-user [facility] Start: 03-15-2021 End: 10-17-2023 Alcohol intake Current drinker of alcohol (finding) [facility] Start: 03-15-2021 End: 07-18-2022 Alcohol intake [facility] Start: 11-18-2019 History SDOH Alcohol Frequency 2 [facility] Start: 11-18-2019 History SDOH Alcohol Std Drinks 1 [facility] Start: 03-18-2017 History SDOH Alcohol Comment 2 drinks per month [facility] Start: 1980 Sex Assigned At Female C [facility] Start: 03-20-2021 End: 12-27-2021 Exposure to SARS-CoV-2 (event) Not sure [facility] Start: 01-06-2022 End: 01-16-2022 Exposure to SARS-CoV-2 (event) Unable to assess [facility] Start: 07-18-2022 End: 08-01-2022 Tobacco use panel [facility] Adult Depression Screening Assessment 0 [facility] Start: 04-17-2021 Gender identity Identifies as female gender (finding) [facility] Start: 04-17-2021 Sexual orientation Heterosexual (fin susanne) [facility] How often to you hav e a drink containing alcohol? Monthly or less [facility] How many standard dr inks containing alcohol do you have on a typical day? 1 or 2 [facility] How often do you hav e 6 or more drinks on 1 occasion? Never [facility] History of tobacco use Passive smoker [facility] Start: 1980 Sex Assigned At Not on file [facility] Medical Equipment Procedure Code Equipment Code Equipment Origin al Text Equipment Identifier Dates Port Inf 1 Lum Attach Cath - [id number] Start: 01-31-2012 Comment on above: Description: BARD ROXANN SÁNCHEZ Clinical Notes 03-15-2017 to 10-29-2023 Telephone Encounter - Bernardo Mckeon - 10/29/2023 11:34 AM EDTTelephone Encounter - Bernardo Mckeon - 10/29/2023 11:34 AM EDTTelephone Encounter - Noa Schwab - 10/29/2023 10:34 AM EDT Note Date & Type Note Facility 10-29-2023 Telephone encount er Note Called and spoke to patient. She went to the ER, will update care team on her condition. [facility] 10-29-2023 Miscellaneous Notes Formattin g of this note might be different from the original. Called and spoke to patient. She went to the ER, will update care team on her condition. 1st attempt Lvm to schedule follow up with first available provider, Kylie Nunes is now available at [facility] Noa Schwab October 29, 2023 documented in this encounter [facility] 10-29-2023 Telephone encount er Note 1st attempt Lvm to schedule follow up with first available provider, Kylie Nunes is now available at [facility] Noa Schwab October 29, 2023 [facility] 10-18-2023 History of Presen t illness Narrative POPULATION HEALTH NAVIGATION OUTREACH Action/FYI Patient scheduled Reason for Outreach Care Gap/HCC or Scheduling Wellness Visits Care Gaps due: Specialty Scheduling Patient Contacted: Spoke to patient/parent/or legal guardian Patient identified by name and : Yes Care Gap/HCC/Scheduling Wellness actions taken: Patient scheduled/pended labs: Specialty Appointment Navigation Signature: Landy Lopez October 18, 2023 11:25 AM documented in this encounter [facility] 10-17-2023 History of Presen t illness Narrative PALLIATIVE MEDICINE PROGRESS NOTE SERVICE DATE: 10/17/2023 CHIEF COMPLAINT: follow up pain PERTINENT MEDICAL HISTORY: Celso Potts is a 43 yo female with a history of psoriatic [...] is following for symptom control needs. Subjective Presents today alone. Rough day - mom is at [facility] for broken right hip Celso is been doing ok - Dry mouth from muscle relaxer - this is being taken sparingly. Only when severe. Completely tapered from remeron, on full dose of lexapro now. Making her nauseated. Taking in morning. Will start taking at night. Saw pulm - doesn't need oxygen at home. Saw rheum - low suspicion of psoriatic arthritis, obtained Xrays of hands, feet, knees, SI Joint. Osteoarthritis. Modified ESAS (Sidney Symptom Assessment Scale) Information Provided By: Patient Pain: Moderate Nausea: Mild Loss of Appetite: None Constipation: None Shortness of Breath: Mild Drowsiness: None Tiredness: None Depression: Mild Anxiety: Mild How you feel overall: Fair Objective ECOG PERFORMANCE STATUS: 0- Fully active, able to carry on all pre-disease performance w/o restriction. PHYSICAL EXAMINATION: Vital signs: BP 108/75 Pulse 91 Temp 36.1 C (97 F) (Temporal) Resp 16 LMP 11/18/2012 SpO2 96% Last 1 Encounter Temp Readings: Date: Temp: Temp Src: 09/18/2023 36.1 C (96.9 F) Last 1 Encounter Resp Readings: Date: Resp: 08/05/2023 16 Last 1 Encounter Pulse Readings: Date: Pulse: 10/09/2023 74 Last 1 Encounter BP Readings: Date: BP: 10/09/2023 123/83 General Appearance: No apparent distress and well nourished Skin: No jaundice and No rash Lungs: unlabored effort, no conversational dyspnea Musculoskeletal: No edema and No gross deformity Neuro: Alert and oriented to time place and person and no myoclonus, gait normal Psych: Well groomed, Affect congruent with mood, and Good eye contact DATA: Diagnostic tests reviewed for today's visit: Most recent labs CrCl cannot be calculated (Unknown ideal weight.). Opioid Management: Yes Indication for Opioid Prescribing: [...] APPROPRIATELY filled. No suspicious activity was identified. 10/17/2023 by Juan Francisco Hutchinson APRN.INTERNET MARKETING CONSULTANT Urine Screen Lab Results Component Value Date [...] Urine pH, Pain O[place] 6.3 02/24/2021 Specific [place],Ur Pain Ocasio 1.012 02/24/2021 [place],Ur 46 02/24/2021 [...] is in joints and chest associated to osteoarthritis and radiation fibrosis. Muscle cramps happening only intermittently. She has now developed severe xerostomia and significant fatigue. Discussed tapering medications that would cause such side effects. She is agreeable. (She is now off baclofen, weaned other medications as below) - continue cyclobenzaprine 10 mg BID PRN for muscle cramps (has recently been taking only PRN per her report as she linked this to her dry mouth) - recently evaluated by rheumatology - no concern for psoriatic arthritis, imaging showing osteo. Continues to have chest pain due to radiation fibrosis with muscle spasms intermittently. Discussed opiates are not indicated for this type of pain. Will taper, Celso is agreeable. - taper oxycodone 10 mg BID x 14 days, then 5 mg x 14 days, then stop (counseled on use of benzo and opioids together and increased risk of respiratory depression; narcan previously prescribed) - consult to pain management for evaluation of trigger point injections or other interventional procedure to help with chronic chest/back pain. - suggest routine use of APAP 1000 mg TID - did not tolerate transition to pregabalin - continue gabapentin 600 mg TID (self reported, taking 300/600/300 - advised to change to 300/300/600 to help target sleep) managed by PCP - Alli rios/eber - previously discussed duloxetine for co management of anxiety also - declined. (F43.22) Adjustment disorder with anxious mood - long standing history of anxiety, now with cancer in remission she is having a hard time transitioning back into normal daily routines with constant worry of recurrence. - did not schedule with psychology - but reports now feeling ready to schedule. She will ask PCP for referral locally - she is taking lorazepam per PCP order. Has tapered dosing to only HS per her report - PCP transitioned from mirtazapine to Lexapro. Mood is slowly improving. Less anxiety with stress. (R53.83) Fatigue, unspecified type - likely multifactorial with polypharmacy and now proven adrenal insufficiency. She was unable to tolerate oral hydrocortisone. - missed endocrinology appointment 2/2 hospitalization. She will call to reschedule. - working on weaning medications to help with day time energy. Medical Decision Making: Problems: Moderate: 2+ stable chronic illnesses Risk: High: Drug therapy requiring intensive monitoring Medical Decision Making Level: 4 - Moderate Some elements copied from my note on 09/19/23, the elements have been updated and all reflect current decision making from today, 10/17/2023. Next Visit: 4 Weeks via a virtual visit Juan Francisco Hutchinson APRN.CNP October 17, 2023 7:34 AM This note may have been partially generated using the [employer] voice recognition system. While every effort was made to correct voice recognition errors, kindly be aware that some errors may occasionally occur. documented in this encounter [facility] 10-15-2023 Procedure note Associated Ord er(s): OXIMETRY WITH AMBULATION RESPIRATORY THERAPY OXIMETRY WITH AMBULATION Oximetry with Ambulation Test for This Encounter O2 Device O2 Adapter NC O2 Flow SpO2% HR Activity Ft Walked (ft) Time (min) Avg Speed (MPH) R/A 98 93 Resting R/A 93 114 Walking, usual pace 535 3 2.03 R/A 98 98 Resting R/A 92 121 Walking, fastest pace 705 3 2.67 General Information Pulse Oximetry Site Total Time Spent Walking Assistance/O2 Supply Carrier Forehead 30 None NAME: Anh Weber RRT PATIENT NAME: Celso Potts DATE: October 15, 2023 TIME: 10:45 AM Comment: [facility] 10-15-2023 History of Presen t illness Narrative PULM FUNCTION: Provider: Radha Ruano APRN.INTERNET MARKETING CONSULTANT Oximetry - Ambulation: 1 documented in this encounter [facility] 10-15-2023 Procedure note Associated Ord er(s): OXIMETRY WITH AMBULATION RESPIRATORY THERAPY OXIMETRY WITH AMBULATION Oximetry with Ambulation Test for This Encounter O2 Device O2 Adapter NC O2 Flow SpO2% HR Activity Ft Walked (ft) Time (min) Avg Speed (MPH) R/A 98 93 Resting R/A 93 114 Walking, usual pace 535 3 2.03 R/A 98 98 Resting R/A 92 121 Walking, fastest pace 705 3 2.67 General Information Pulse Oximetry Site Total Time Spent Walking Assistance/O2 Supply Carrier Forehead 30 None NAME: Anh Weber RRT PATIENT NAME: Celso Potts DATE: October 15, 2023 TIME: 10:45 AM Comment: documented in this encounter [facility] 10-09-2023 History of Presen t illness Narrative Radiology Service Progress Note PATIENT NAME: Celso Potts DATE OF SERVICE: October 09, 2023 TIME: 12:11 PM PATIENT IDENTITY VERIFICATION COMPLETED USING TWO [...] PATIENT PRESENTS WITH AN IMPLANTABLE OR ATTACHED INFORMATION CODER: No RADIOLOGY DEPARTMENT: General X-ray: Exam(s) Completed: Pelvis X-Ray: sacroiliac joints Lower Extremity X-Ray(s): Knee, AP / Lat / Tunne / Merchant Bilateral and Wt. Bearing and Foot, Bilateral and Wt. Bearing Upper Extremity X-Ray(s): Hand, bilateral PERIPHERAL IV DATA: Not applicable SIGNED BY: RT Fang(R) October 09, 2023 12:11 PM documented in this encounter [facility] 10-09-2023 History of Presen t illness Narrative Images from the original note were not included. Rheumatology Outpatient Clinic Date of Service: 10/09/2023 Patient: Celso Potts Medical Record: [id number] Primary Care Physician: Jose Vail MD Referring Provider: Juan Francisco Hutchinson [facility] [address] Last Rheumatology visit: 06/09/2015 (with Yun Garcia) Chief complaint: New Patient Evaluation (PsA) Consultation requested by Juan Francisco Hutchinson APRN.CNP for an opinion regarding psoriatic arthritis. My final recommendations will be communicated back to the requesting physician by way of shared Medical record or letter to requesting physician via US mail. 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 Celso is both RF - 9 (11/03/2019) and CCP - 13.5 (11/03/2019) negative. Her most recent CAL was negative (11/03/2019). History of present illness Has been having joint pain, referred by palliative to rheumatology to evaluate for psoriatic arthritis and sicca symptoms. Following with ENT for dysphagia and hoarseness, suspected radiation injury Saw orthopedics for right de Quervain's, received cortisone injection 08/2023 Seen in rheumatology clinic in [address] Garcia for elevated CK, myalgia which was better with Medrol pack and break from nivolumab. CK was up to 886, high CK deemed to be related to chemotherapy. History of psoriasis Pso diagnosed in 2018 after skin biopsy, on topicals, rash is worse in winter, better during summer Recently she has been having rash over posterior scalp, has been using topicals from her PCP She reports joint pain mostly over knees and hips, PIPs, shoulders that started along with psoriasis She also has constant tightness and pulling sensation over chest that started after radiation therapy Joint pain is worse in am, slightly better with activities. Has noted swelling over PIPs, left foot and ankle for 2 months Left ankle swelling resolves is usually end of the day and gets better with elevation and in the morning Has muscle cramps which is painful EMS for few hours 07/2023 CBC unremarkable except WBC 15 CMP unremarkable except ALT 58 Sed rate normal 03/2023 Sed rate normal Ferritin normal 10/2019 HLA-B27 negative RF/CCP negative CAL negative Uric acid 6 Sed rate/CRP normal 03/2018 CAL negative Anti-smooth muscle antibody negative Antimitochondrial antibody negative Skin biopsy right lower leg, right dorsum of hand 02/2018-psoriasis 05/2015 P-ANCA/c-ANCA negative dsDNA 42 Anti-JUNE negative Rheum/Ortho Arthrocentesis Injections (last 5) 12/16/2020 15:28 08/27/2023 08:18 Injection History Medication 4 mg dexamethasone sodium phosphate 4 mg/mL 6 mg betamethasone acetate-betamethasone sodium phosphate 6 mg/mL Patient-Entered Data PAIN EVALUATION 10/09/2023 1106 Pain Level: 4 Pain Location: Generalized Description: Aching;Stiffness Duration Amount of Time: 5 Duration Units: Years Frequency: Continuous PROMIS Assessments 01/21/2020 03/11/2022 06/10/2023 PROMIS Assessments Physical Health Percentile 7 7 22 78 Mental Health Percentile 53 53 53 43 Pain Score 3 3 4 5 Multiple values from one day are sorted in reverse-chronological order RAPID 3 [place] Silva Activities of Daily Living No Data Dress self? - Get in and out of bed? - Walk outdoors? - Wash and dry body? - Get in and out of car? - RAPID 3 Disease Activity Weighed Score Levels: 0 - 1: Near Remission 1.3 - 2.0: Low Severity 2.3 - 4.0: Moderate Severity 4.3 - 10.0: High Severity No data to display Review of Systems ROS RHEUMATOLOGY Fever: Denies Change in weight: Denies Lymphadenopathy: Denies Mucosal ulcers: Denies Skin rash: Denies Photosensitive rash: Denies Alopecia: Denies Chest Pain: yes Dyspnea: Denies Cough : Denies Difficulty swallowing: Denies Nausea/vomiting: Denies Heartburn: Denies Abdominal Pain: Denies Diarrhea/constipation :Denies Blood in stool : Denies Dysuria/hematuria: Denies Muscle pain: Denies Muscle weakness: Denies Numbness: Hands and feet since chemo Headache: Denies change in vision: Denies Raynaud's: Denies Sicca: Denies Past Medical History PAST MEDICAL HISTORY 09/2014: ASCUS favor dysplasia Comment: for colpo No date: Dyspareunia 04/02/2017: Fibroid 01/16/2012: Hodgkin lymphoma (HCC) Comment: stage IIIB, Nodular sclerosis classical Hodgkin lymphoma 04/02/2017: Menorrhagia No date: PE (pulmonary embolism) Comment: Found incidentally on staging CT May 27, 20122013: Pneumonitis Comment: Attributed to radiation and brentuximab vedotin No date: Postmenopausal atrophic vaginitis 08/2014: Postmenopausal HRT (hormone replacement therapy) Comment: offered No date: Premature menopause Comment: 01/2014 FSH 70 normal dxa No date: Tachycardia Comment: on atenolol 09/28/2014: Vaginal high risk human papillomavirus (HPV) DNA test positive Past Surgical History PAST SURGICAL HISTORY 04/02/2017: ENDOCERVICAL CURETTAGE 04/02/2017: HYSTEROSCOPY BX W/WO D&C Comment: with D&C 01/16/12: PAST SURGICAL HISTORY OF Comment: left axillary ln biopsy/ had 2012 stem cell tx has port removal 10/12/14: VAGINOSCOPY Comment: negative path 10/2012: VATS MEDIASTINAL LYMPHADENECTOMY Comment: left VATS Allergy ALLERGIES Allergen Reactions Chlorhexidine Itching Severe skin irritation. Had used for central line care Sulfa (Sulfonamide * Rash Family History FAMILY HISTORY Problem Relation Age of Onset Multiple Sclerosis Mother Coronary Artery Disease Maternal Grandfather [place] age 36 Coronary Artery Disease Paternal Grandfather 60's Multiple Sclerosis Maternal Grandmother Social History Social History Tobacco Use Smoking status: Former Current packs/day: 0.00 Types: Cigarettes Start date: 01/17/2002 Quit date: 01/18/2012 Years since quittin.7 Passive exposure: Past Smokeless tobacco: Never Vaping Use Vaping status: Never Used Substance Use Topics Alcohol use: Yes Alcohol/week: 0.0 standard drinks of alcohol Comment: 2 drinks per month Drug use: No Current Medications Current Outpatient Medications Medication Sig traZODone (DESYREL) 100 mg tablet Take 100 mg by mouth at bedtime as needed. AT BEDTIME. tolterodine ER (DETROL LA) 2 mg 24 hr capsule Take 2 mg by mouth once daily. cyclobenzaprine (FLEXERIL) 10 mg tablet Take 1 tablet by mouth two times a day as needed for muscle spasm. oxyCODONE IR (ROXICODONE) 10 mg tab Take 1 tablet by mouth every 8 hours as needed for pain for up to 30 days. gabapentin (NEURONTIN) 300 mg capsule Take 2 capsules by mouth three times a day for 90 days. escitalopram oxalate (LEXAPRO) 10 mg tablet Take 0.5 tablets by mouth once daily. (Patient taking differently: Take 10 mg by mouth once daily.) albuterol-budesonide HFA (AIRSUPRA) 90-80 mcg/actuation inhaler Take 2 Puffs by mouth every 4 hours as needed for wheezing/shortness of breath. Do not take more than 12 inhalations in a 24 hour period. iendirudrgx-udenbjiyi-zybohktr (TRELEGY ELLIPTA) 200-62.5-25 mcg inhalation powder Inhale 1 Puff as instructed once daily. ipratropium-albuterol (DUONEB) 0.5 mg-3 mg(2.5 mg base)/3 mL nebu inhale contents of 1 vial ( 3 MILLILITERS ) in nebulizer by mouth and INTO THE LUNGS every 6 hours if needed for wheezing or shortness of breath pantoprazole DR (PROTONIX) 40 mg tablet Take 1 tablet by mouth once daily. prochlorperazine (COMPAZINE) 10 mg tablet take 1 tablet by mouth every 6 hours if needed LORazepam (ATIVAN) 0.5 mg take 1 tablet by mouth four times a day if needed for anxiety XARELTO 10 mg tablet take 1 tablet by mouth once daily Biotin 2,500 mcg cap mirtazapine (REMERON) 30 mg tablet Take 7.5 mg by mouth daily at bedtime. fluocinonide [...] C No.3 (B COMPLEX PLUS VITAMIN C) 98-73-10-5-300 mg cap Take 1 tablet by mouth once daily. Lactobac no.41/Bifidobact no.7 (PROBIOTIC-10 ORAL) Take by mouth. atenolol (TENORMIN) 50 mg tablet take 1 tablet by mouth twice a day CHOLECALCIFEROL, VITAMIN D3, (VITAMIN D3 ORAL) Take 1,000 Units by mouth once daily. No current facility-administered medications for this visit. Labs Latest Ref Rng & Units 01/28/2023 04/16/2023 06/10/2023 08/05/2023 CBC WBC 3.70 - 11.00 k/uL 8.53 10.59 11.50 15.65 Hemoglobin 11.5 - 15.5 g/dL 15.8 14.2 14.6 14.1 Hematocrit 36.0 - 46.0 % 47.6 43.8 44.1 42.8 Platelet Count 150 - 400 k/uL 331 348 312 332 Abs Neut (ANC) 1.45 - 7.50 k/uL 5.12 7.29 8.55 12.14 Abs Lymph 1.00 - 4.00 k/uL 2.60 2.59 2.11 2.35 Latest Ref Rng & Units 01/28/2023 04/16/2023 06/10/2023 08/05/2023 CMP Sodium 136 - 144 mmol/L 139 145 142 142 Potassium 3.7 - 5.1 mmol/L 4.4 4.0 3.9 3.6 Chloride 98 - 107 mmol/L 99 104 104 103 CO2 22 - 30 mmol/L 30 29 24 29 Glucose 74 - 99 mg/dL 102 121 137 109 BUN 7 - 21 mg/dL 15 18 19 15 Creatinine 0.58 - 0.96 mg/dL 0.70 0.75 0.74 0.90 Calcium 8.5 - 10.2 mg/dL 10.1 9.8 9.5 9.7 AST 13 - 35 U/L 37 31 27 25 ALT 7 - 38 U/L 48 48 41 58 Alkaline Phosphatase 34 - 123 U/L 85 71 71 69 Latest Ref Rng & Units 03/16/2013 03/17/2013 05/04/2013 11/03/2019 Uric Acid Uric Acid 2.5 - 6.6 mg/dL 8.9 8.3 5.6 6.0 Latest Ref Rng & Units 01/01/2023 04/16/2023 06/10/2023 08/05/2023 ESR, WSR WSR 0 - 20 mm/hr 2 5 5 17 Latest Ref Rng & Units 06/08/2015 11/03/2019 CRP CRP <0.9 mg/dL 0.7 0.6 Latest Ref Rng & Units 05/10/2014 C3, C4 C3 68 - 260 mg/dL 212 C4 12 - 46 mg/dL 38 Latest Ref Rng & Units 08/31/2015 12/20/2015 01/03/2016 02/14/2016 CK CK 42 - 196 U/L 886 580 672 528 Latest Ref Rng & Units 05/10/2014 06/08/2015 11/03/2019 RF and CCP Rheumatoid Factor <16 IU/mL <10 <10 <10 CCP Antibody, IgG <20 Units <15 <15 Latest Ref Rng & Units 02/26/2013 06/08/2015 01/03/2016 03/24/2018 Hepatitis Screen Hep A Ab, IgM Negative Negative Hep B Core Ab, Total Negative Negative Negative Hep B Surf Ab Qual Negative Negative Negative Negative Hep C Antibody IA Negative Negative Negative Negative Hep B Surface Ag Negative Negative Negative HBsAg Negative Negative Negative Latest Ref Rng & Units 06/08/2015 03/22/2017 03/24/2018 11/03/2019 Antibodies CAL Negative Positive Negative CAL by EIA OD Ratio 0.3 CAL by EIA, Qual Negative Negative CAL Titer Negative 1:640 Negative CAL Pattern Homogeneous Not applicable for negative result. DNA Antibody w/Confirmation <30 IU/mL 42 Sm Antibody <1.0 AI <0.[address] RADIO INSTALLER <1.0 AI <0.2 Chromatin Antibody <1.0 AI <0.2 SSA Antibody <1.0 AI <0.2 SSB Antibody <1.0 AI <0.[address] RADIO INSTALLER Antibody <1.0 AI <0.2 Scleroderma Ab, IgG <1.0 AI 0.5 Centromere Ab <1.0 AI <0.2 NANCY-1 ANTIBODY, IGG <1.0 AI <0.2 PT Sec 9.7 - 13.0 sec 10.1 PT INR 0.9 - 1.3 1.0 Latest Ref Rng & Units 05/10/2014 06/08/2015 ANCA Myeloperoxidase Antibody (MPO) <1.0 AI Test not performed on samples negative by immunofluorescence. <0.2 Proteinase 3 Antibody <1.0 AI Test not performed on samples negative by immunofluorescence. Proteinase-3 Antibody <1.0 AI <0.2 P-ANCA Fluorescence Negative Negative UNABLE TO INTERPRET C-ANCA Fluorescence Negative Negative Negative Myeloperoxidase Antibody (MPO) <1.0 AI Test not performed on samples negative by immunofluorescence. <0.2 Proteinase-3 Antibody <1.0 AI <0.2 11/03/2019 HLA B27 HLA-B27 DNA Result Negative Latest Ref Rng & Units 06/25/2015 08/06/2015 10/13/2015 09/20/2021 Urinalysis Protein, Urine Negative neg 100 NEG Negative RBC, Urine 0-3 /HPF 11-25 0-3 /HPF Latest Ref Rng & Units 10/28/2013 05/18/2014 TPMT amd G6PD G6PD Scn NORMAL Normal G-6-PD Quantitative 9.9 - 16.6 U/g Hb 15.8 Latest Ref Rng & Units 07/18/2016 05/27/2017 03/18/2018 04/16/2023 Vitamin D Vitamin D 25 Hydroxy 31.0 - 80.0 ng/mL 66.6 34.3 27.6 62.0 Latest Ref Rng & Units 01/30/2012 09/22/2014 04/16/2023 Vitamin B12 Vitamin B12 232 - 1,245 pg/mL 390 >2,000 599 Latest Ref Rng & Units 01/30/2012 Folate Folate 2.8 - 18 ng/mL 13.8 Latest Ref Rng & Units 12/11/2012 02/26/2013 Celiac Panel IgA 78 - 391 mg/dL 134 197 Imaging Last XR Hand/Finger - Impression Only No resulted procedures found. Last MRI Hand - Impression Only No resulted procedures found. Last XR Chest - Impression Only XR CHEST 2V FRONTAL/LAT Exam End: 05/31/2023 3:43 PM (Final result) Impression: IMPRESSION: 1. No interval change since 04/19/23. 2. Postradiation changes in the left lung, stable. ... Last XR Cervical Spine - Impression Only No resulted procedures found. Health Maintenance Current Immunizations Reviewed on 04/16/2023 Name Date Haemophilus influenzae b (Hib PRP-OMP) vaccine 03/11/2014, 12/21/2013, 10/14/2013 Haemophilus influenzae b-meningococcal bivalent (Ttg-QxnLV-BV) vaccine 10/14/2013 diphtheria tetanus (DT) vaccine, pediatric 03/11/2014, 12/21/2013 hepatitis A-hepatitis B (HepA-HepB) vaccine 06/16/2014, 12/21/2013, 10/14/2013 hepatitis B (HepB) vaccine 09/01/2010, 04/04/2010, 03/04/2010, 11/11/2007, 10/14/2007 influenza (IIV4) vaccine 12/16/2014, 12/21/2013 meningococcal (MPSV4) vaccine 03/11/2014 pneumococcal (PCV13) vaccine 06/16/2014, 03/11/2014, 12/21/2013, 10/14/2013 poliovirus (IPV) vaccine 03/11/2014, 12/21/2013, 10/14/2013 tetanus diphtheria pertussis (Tdap) vaccine 03/11/2014, 10/14/2013 tetanus toxoid (TT) vaccine 03/11/2014 Physical Exam VITAL SIGNS: BP 123/83 Pulse 74 Wt 0 lb (0.0kg) SpO2 99% LMP 11/18/2012 GENERAL APPEARANCE: Well groomed. In no distress. SKIN: Psoriatic rash over posterior scalp, no nodules, calcifications, discoloration. EYES: PERRL, EOMI HENT: Normal external examination of the ears and nose, lips, oropharynx and tongue. No oropharyngeal lesions, exudate, or sores. NECK: No mass or asymmetry, RESPIRATORY: Normal respiratory effort. Clear to auscultation, no wheeze. CARDIOVASCULAR: regular, normal rate, normal heart sounds, no murmur or rub ABDOMEN: BS normal. No bruits, NEUROLOGIC: Alert and oriented x 3. Motor exam: Normal muscle strength grossly. Normal bulk and tone. MUSCULOSKELETAL EXAMINATION: Upper extremities: Shoulders: tenderness to palpation right shoulder. No swelling or effusion. Elbows: Full ROM in flexion and extension. No swelling or effusion. No tenderness to palpation Wrists: Full ROM in all rodriguez. No swelling or synovitis. No tenderness to palpation Hands: Full ROM in flexion and extension. No swelling or synovitis along the MCPs, PIPs, and DIPs. tenderness along the PIPs Lower extremities: Knees: No swelling or effusion. tenderness to palpation along bilateral medial and lateral joint line. Ankles: Full ROM in all rodriguez. No swelling or effusion. No tenderness to palpation along the joint line, medial/lateral malleolus, ATFL, PTFL, CFL, or Achilles Tendon. Feet: No tenderness to palpation. No evidence of MTP swelling. Diagnoses: (M25.50) Polyarthralgia (primary encounter diagnosis) (L40.9) Psoriasis Impression and Plan Polyarthralgia with history of psoriasis Reports multiple joint pain mostly over hips, knees, PIPs Also has chest tightness and pulling sensation, has widespread muscle aches Although she reports EMS for few hours and joint pain gets better with activities, there is no evidence of synovitis. She has noted swelling around ankles that gets better overnight with elevation and in the morning suggesting pitting edema PET/CT from 05/2023 with no abnormal uptake in the osseous structure I have lower suspicion for psoriatic arthritis, to further evaluate I will obtain radiograph bilateral hands, feet, knees, SI joint Recommend follow-up with senior managing director since her psoriasis seem to be active over scalp despite using topical medications 2. Sicca symptoms Patient denies significant sicca symptoms She is also on multiple medications that can contribute to sicca symptoms, history of radiation can be contributing as well Noted negative SSA/SSB Noted mildly elevated dsDNA in the past however no signs and symptoms suggestive of systemic lupus 3. Healthcare maintenance Defer to PCP Orders this visit: Office Visit on 10/09/23 XR SACROILIAC JOINTS 2V AP PELVIS/FERGUESON XR KNEE GENERAL 4V AP BOTH/PA BOTH/LAT/MERC BILATERAL XR HAND GENERAL 3V PA/LAT/OBL BILATERAL XR FOOT GENERAL 3V AP/LAT/OBL BILATERAL traZODone (DESYREL) 100 mg tablet tolterodine ER (DETROL LA) 2 mg 24 hr capsule Return for Pending x-ray results. I spent a total of 60 minutes on the date of the service which included preparing to see the patient, [id number] patient care, completing clinical documentation, obtaining and/or reviewing separately obtained history, performing a medically appropriate examination, counseling and educating the patient/family/caregiver, and ordering medications, tests, or procedures. This note was partially generated with the assistance of [employer] voice recognition software. An attempt was made to correct any dictation errors however there may be some incorrect words, spellings, and punctuation. Simin Brandt MD [facility] Rheumatology Associate Staff [facility] Machine [employer] duplic[employer] [facility] documented in this encounter [facility] 09-30-2023 Telephone encount er Note Duplicate refill request. Sent in separate refill encounter. Kylie Mosher RN September 30, 2023 1:25 PM [facility] 09-30-2023 Miscellaneous Notes Formattin g of this note might be different from the original. Duplicate refill request. Sent in separate refill encounter. Kylie Mosher RN September 30, 2023 1:25 PM documented in this encounter [facility] 09-30-2023 Telephone encount er Note Patient Mycharts requesting refills as follows: Last ordered 08/06/2023 and 08/26/2023 Next scheduled follow up appointment 10/17/2023 with Juan Francisco Hutchinson CNP. Requested Prescriptions Pending Prescriptions Disp Refills cyclobenzaprine (FLEXERIL) 10 mg tablet 60 tablet 0 Sig: Take 1 tablet by mouth two times a day as needed for muscle spasm. oxyCODONE IR (ROXICODONE) 10 mg tab 90 tablet 0 Sig: Take 1 tablet by mouth every 8 hours as needed for pain for up to 30 days. Please review and advise. Kylie Mosher RN [facility] 09-30-2023 Miscellaneous Notes Formattin g of this note is different from the original. Patient Mycharts requesting refills as follows: Last ordered 08/06/2023 and 08/26/2023 Next scheduled follow up appointment 10/17/2023 with Juan Francisco Hutchinson CNP. Requested Prescriptions Pending Prescriptions Disp Refills cyclobenzaprine (FLEXERIL) 10 mg tablet 60 tablet 0 Sig: Take 1 tablet by mouth two times a day as needed for muscle spasm. oxyCODONE IR (ROXICODONE) 10 mg tab 90 tablet 0 Sig: Take 1 tablet by mouth every 8 hours as needed for pain for up to 30 days. Please review and advise. Kylie Mosher RN documented in this encounter [facility] 09-25-2023 Telephone encount er Note No longer taking baclofen [facility] 09-25-2023 Miscellaneous Notes Formattin g of this note might be different from the original. No longer taking baclofen Pharmacy requesting refills as follows: Last ordered 05/07/2023. Next scheduled follow up appointment 10/17/2023. Requested Prescriptions Pending Prescriptions Disp Refills baclofen 5 mg tablet [Pharmacy Med Name: BACLOFEN 5 MG TABLET] 90 tablet 2 Sig: take 1 tablet by mouth three times a day Kylie Mosher RN September 25, 2023 documented in this encounter [facility] 09-25-2023 Telephone encount er Note Pharmacy requesting refills as follows: Last ordered 05/07/2023. Next scheduled follow up appointment 10/17/2023. Requested Prescriptions Pending Prescriptions Disp Refills baclofen 5 mg tablet [Pharmacy Med Name: BACLOFEN 5 MG TABLET] 90 tablet 2 Sig: take 1 tablet by mouth three times a day Kylie Mosher RN September 25, 2023 [facility] 09-19-2023 History of Presen t illness Narrative PALLIATIVE MEDICINE PROGRESS NOTE SERVICE DATE: September 19, 2023 IDENTIFICATION AND INTRODUCTION: Celso Potts is a 43 year old female This visit took place Virtually; I have communicated my name and active licensure. The patient's identity and physical location were verified at the time of this visit. The patient or their legal customer solutions representative has been informed of the risks and benefits of -- and alternatives to -- treatment through a remote evaluation and consents to proceed with the evaluation remotely. CHIEF COMPLAINT: No chief complaint on file. PERTINENT MEDICAL HISTORY: Celso Potts is a 43 yo female with a history of psoriatic [...] control needs. Subjective Last pall care visit 08/12/23 PCP tapered remeron and started lexapro for better anxiety management States she's been struggling the last week. In the process of of changing antidepressant (currently taking half dose of remeron and half dose of lexapro). States has a lot of side effects. Falling asleep during the day, heart racing, nausea, headaches, no appetite. Messaged PCP yesterday. Wants to try to push through. Had f/u with ENT yesterday - wants to see GI (EGD consult) ?narrowing of esophagus from radiation. Will also see voice therapy through speech. For pain: voltaren gel doesn't work for her. Stopped oxycodone 1 dose - currently taking 3 doses per day. Still worst pain is chest tightness and joint aches. Had an appointment scheduled in rheumatology on Saturday but got to appointment rescheduled. October 08. Left foot and ankle swelling in the last couple weeks. Comes and goes. Still taking gabapentin - PCP increased gabapentin to 600 mg TID (but is taking gabapentin 300/600/300 as she didn't feel she needed to increase further as symptoms resolved). Sensation of mouse running over her feet when standing. PCP increased (previously taking 300 mg TID) No constipation No falls No confusion, oversedation, myoclonus. No urinary symptoms. REVIEW OF SYSTEMS: Review of Systems Modified ESAS (Sidney Symptom Assessment Scale) Information Provided By: Patient Pain: Moderate Nausea: Mild Loss of Appetite: Mild Constipation: None Shortness of Breath: Moderate Drowsiness: None Tiredness: Moderate Depression: Mild Anxiety: Moderate How you feel overall: Fair Objective PHYSICAL EXAMINATION: LMP 11/18/2012 Physical Exam Constitutional: General: She is not in acute distress. Pulmonary: Effort: Pulmonary effort is normal. No respiratory distress. Neurological: Mental Status: She is alert and oriented to person, place, and time. Comments: No myoclonus Psychiatric: Mood and Affect: Mood normal. DATA: Diagnostic tests reviewed for today's visit: Most recent labs and imaging results. Creatinine Date Value Ref Range Status 08/05/2023 0.90 0.58 - 0.96 mg/dL Final CrCl cannot be calculated (Unknown ideal weight.). Opioid Management: Yes Indication for Opioid Prescribing: [...] APPROPRIATELY filled. No suspicious activity was identified. 09/19/2023 by Juan Francisco Hutchinson APRN.INTERNET MARKETING CONSULTANT Urine Screen Lab Results Component Value Date [...] Urine pH, Pain [place] 6.3 02/24/2021 Specific [place],Ur Pain Ocasio 1.012 02/24/2021 [place],Ur 46 02/24/2021 [...] cause such side effects. She is agreeable. (She is now off baclofen, weaned other medications as below) - continue cyclobenzaprine 10 mg BID PRN for muscle cramps (has recently been taking only PRN per her report) - continue oxycodone 10 mg Q8H PRN with the intention to continue to wean as able (counseled on use of benzo and opioids together and increased risk of respiratory depression; narcan previously prescribed) - consult to Rheumatology to have further work up given history of psoriatic arthritis and new severe dry mouth (?sicca like presentation); scheduled 10/09/23 - suggest routine use of APAP 1000 mg TID - did not tolerate transition to pregabalin - continue gabapentin 600 mg TID (self reported, taking 300/600/300 - advised to change to 300/300/600 to help target sleep) managed by PCP - Alli Nunez d/c - previously discussed duloxetine for co management of anxiety also - declined. (F43.22) Adjustment disorder with anxious mood - long standing history of anxiety, now with cancer in remission she is having a hard time transitioning back into normal daily routines with constant worry of recurrence. - did not schedule with psychology - but reports now feeling ready to schedule. She will ask PCP for referral locally - she is taking lorazepam per PCP order. Has tapered dosing to only HS per her report - PCP is currently transitioning her from mirtazapine to Lexapro. (R53.83) Fatigue, unspecified type - likely multifactorial with polypharmacy and now proven adrenal insufficiency. She was unable to tolerate oral hydrocortisone. - missed endocrinology appointment 2/2 hospitalization. She will call to reschedule. - working on weaning medications to help with day time energy. Medical Decision Making: Problems: Moderate: 2+ stable chronic illnesses Risk: High: Drug therapy requiring intensive monitoring Medical Decision Making Level: 4 - Moderate Some elements copied from my note on 08/12/23, the elements have been updated and all reflect current decision making from today, 09/19/2023. Next Visit: 4 Weeks in-person Palliative Medicine Nurse to do telephonic follow-up: No Direct Care Counselor Services: per oncology SW Juan Francisco Hutchinson APRN.PEDRO September 19, 2023 6:35 AM This note may have been partially generated using the Smart[employer] voice recognition system. While every effort was made to correct voice recognition errors, kindly be aware that some errors may occasionally occur. documented in this encounter [facility] 09-18-2023 Instructions Loy Merino PA-C - 09/18/2023 9:31 AM EDT Voice eval and therapy with Viridiana Jimenez, Sheila Ribeiro, Lee Zendejas, or Destiny Howard. documented in this encounter [facility] 09-18-2023 History of Presen t illness Narrative Images from the original note were not included. [facility] [place] FOLLOW-UP CLINIC NOTE CC: Ms. Potts is a 43 year old female who comes in for follow up. Patient was last seen on 05/22/2023 with plan of care: ASSESSMENT: Dysphagia, unspecified type Hoarseness Gastroesophageal reflux [...] clinically indicated. May consider consult to GI, HOSPITAL RECEPTIONIST Loy Merino PA-C [facility] ASSESSMENT: Dysphagia, unspecified type (primary encounter diagnosis) Hoarseness Lprd (laryngopharyngeal reflux disease) PLAN: - Reviewed and discussed results of MBS, XR esophagram with patient; all patient questions answered. Discussed MBS findings and recommendations with HOSPITAL RECEPTIONIST Cynthia Guajardo CCC-HOSPITAL RECEPTIONIST via [employer] message. - Consult to HOSPITAL RECEPTIONIST for voice therapy, per patient request - Consult to GI for further evaluation of esophageal retention as noted on MBS in setting of history of radiation to chest, per patient request - Educated patient on LPR, GERD, including diet and lifestyle modifications, alginate therapy; patient education handout provided - Advised patient on red flag warning signs, symptoms that warrant immediate evaluation in ER - Follow up after HOSPITAL RECEPTIONIST, GI evaluations; sooner if clinically indicated Loy Merino PA-C [facility] HPI: Since last visit, patient reports voice continues to be intermittently hoarse, occasionally squeaking. Patient has been utilizing lozenges, tea. Patient endorses intermittent dysphagia persists (points to base of neck). Patient has not noticed any benefit since initiation of pantoprazole. No new head or neck concerns today. MBSS 07/10/2023: PLAN OF CARE: Impression: Evidence of: Functional [...] developing pulmonary complications related to swallowing abilities. HOSPITAL RECEPTIONIST provided reflux precaution handout and contact information to schedule esophagram. HOSPITAL RECEPTIONIST recommends follow up with GI given noted esophageal retention, symptoms, and history of radiation to chest area. Patient may also benefit from outpatient voice therapy-ENT PA updated. HPI 05/22/2023: 42 year old female presents to clinic [...] 2011. Past medical history: PAST MEDICAL HISTORY 09/2014: ASCUS favor dysplasia Comment: for colpo No date: Dyspareunia 04/02/2017: Fibroid 01/16/2012: Hodgkin lymphoma (HCC) Comment: stage IIIB, Nodular sclerosis classical Hodgkin lymphoma 04/02/2017: Menorrhagia No date: PE (pulmonary embolism) Comment: Found incidentally on staging CT May 27, 2012 2014: Pneumonitis Comment: Attributed to radiation and brentuximab vedotin No date: Postmenopausal atrophic vaginitis 08/2014: Postmenopausal HRT (hormone replacement therapy) Comment: offered No date: Premature menopause Comment: 01/2014 FSH 70 normal dxa No date: Tachycardia Comment: on atenolol 09/28/2014: Vaginal high risk human papillomavirus (HPV) DNA test positive Past surgical history: PAST SURGICAL HISTORY 04/02/2017: ENDOCERVICAL CURETTAGE 04/02/2017: HYSTEROSCOPY BX W/WO D&C Comment: with D&C 01/16/12: PAST SURGICAL HISTORY OF Comment: left axillary ln biopsy/ had 2012 stem cell tx has port removal 10/12/14: VAGINOSCOPY Comment: negative path 10/2012: VATS MEDIASTINAL LYMPHADENECTOMY Comment: left VATS Current medication(s): Current Outpatient Medications Medication Sig albuterol-budesonide HFA (AIRSUPRA) 90-80 mcg/actuation inhaler Take 2 Puffs by mouth every 4 hours as needed for wheezing/shortness of breath. Do not take more than 12 inhalations in a 24 hour period. oxyCODONE IR (ROXICODONE) 10 mg tab Take 1 tablet by mouth every 8 hours as needed for pain for up to 30 days. snxakfltdtp-afqxefemq-hrvquvgy (TRELEGY ELLIPTA) 200-62.5-25 mcg inhalation powder Inhale 1 Puff as instructed once daily. ipratropium-albuterol (DUONEB) 0.5 mg-3 mg(2.5 mg base)/3 mL nebu inhale contents of 1 vial ( 3 MILLILITERS ) in nebulizer by mouth and INTO THE LUNGS every 6 hours if needed for wheezing or shortness of breath diclofenac (VOLTAREN) 1 % topical gel Apply 4 g to affected area four times daily. prochlorperazine (COMPAZINE) 10 mg tablet take 1 [...] 1,000 Units by mouth once daily. cyclobenzaprine (FLEXERIL) 10 mg tablet Take 1 tablet by mouth two times a day as needed for muscle spasm. pantoprazole DR (PROTONIX) 40 mg tablet Take 1 tablet by mouth once daily. Vitamin B Comp and C No.3 (B COMPLEX PLUS VITAMIN C) 09-97-06-5-300 mg cap Take 1 tablet by mouth once daily. No current facility-administered medications for this visit. Allergies: ALLERGIES Allergen Reactions Chlorhexidine Itching Severe skin irritation. Had used for central line care Sulfa (Sulfonamide * Rash Social history: Social History Tobacco Use Smoking status: Former Years: 10 Types: Cigarettes Quit date: 01/18/2012 Years since quittin.6 Passive exposure: Past Smokeless tobacco: Never Vaping Use Vaping Use: Never used Substance Use Topics Alcohol use: Yes Alcohol/week: 0.0 standard drinks of alcohol Comment: 2 drinks per month Drug use: No Family history: FAMILY HISTORY Problem Relation Age of Onset Multiple Sclerosis Mother Coronary Artery Disease Maternal Grandfather [place] age 36 Coronary Artery Disease Paternal Grandfather [...] teeth (caries, dentures, extractions, abscesses), + throat clearing NECK: - neck lumps, - goiter, - neck pain, - swollen lymph nodes or glands PULM: No dyspnea, + cough CV: No chest pain, shortness of breath, leg swelling, or palpitations GI: + dysphagia, + problematic reflux. No nausea, vomiting, or diarrhea PSYCH: + depression, + anxiety PHYSICAL EXAM: GENERAL: 43 year old female is well developed, well nourished, without obvious deformities, in no acute distress COMMUNICATION: The patient speaks with a hoarse voice. No stridor or stertor. Hearing is grossly normal OVERALL FACIAL APPEARANCE: No obvious scars, lesions, or masses EYES: Extraocular muscles are intact, no diplopia on primary gaze EARS: Externally normal in appearance, without scars, lesions, masses, or tenderness. NOSE: Externally normal in appearance, without scars, lesions, or masses. Nasal passageways are patent. Septum is midline. ORAL CAVITY AND OROPHARYNX: Teeth are in fair repair and nontender. Uvula midline. No pharyngeal swelling, oropharyngeal exudate, posterior oropharyngeal erythema, or uvula swelling. Gag reflex intact. NECK: The neck appears symmetric. Trachea is midline and mobile. Full range of motion without symptoms. NEURO: Patient is Alert and Oriented to person, place, time, and situation. Cranial nerves II-XII grossly intact RESPIRATORY: Breathing comfortably, no evidence accessory muscle use, no intercostal retractions CV: Strong carotid artery pulse with no bruit RADS: XR Esophagram 07/19/2023: IMPRESSION: NORMAL ESOPHAGRAM. RESULT: Caliber: Normal. Stricture, Ring, or Web: None. Motility: Normal. Hiatal Hernia: Absent. Gastroesophageal Reflux: None, despite provocative maneuvers including cough, Valsalva, straight leg raise, and water siphon. Gastric Cardia: Normal. Barium Tablet: Passed easily without reproducing symptoms. Other Findings: None. LABS: Relevant labs were reviewed and discussed with patient. OUTSIDE RECORDS: None PROCEDURE: None Loy Merino PA-C [facility] Medical Decision Making: Problems: Low: Stable chronic illness Data: Unique test result(s) reviewed: 2 Risk: Low: Low risk from testing/treatment Medical Decision Making Level: 3 - Low documented in this encounter [facility] 09-16-2023 Telephone encount er Note Spoke with patient on 09/16/2023. Patient is rescheduled for her visit. [facility] 09-16-2023 Miscellaneous Notes Formattin g of this note might be different from the original. Spoke with patient on 09/16/2023. Patient is rescheduled for her visit. documented in this encounter [facility] 08-29-2023 Telephone encount er Note Palliative Medicine Care Coordination Follow up Phone Call Patient identified by name and : Yes Spoke to: [facility] pharmacy and patient Nurse calling to follow up on refill of oxycodone per patient's concerns. . Patient called concerned because [facility] saying her oxycodone was too early to fill. She said we discussed last week she was leaving for vacation Tuesday 08/29 which is tomorrow until 09/10. Caitlin VASQUEZ covering for Juan Francisco Hutchinson CNP did put in a new prescription 08/25 to [facility]. Spoke with pharmacy and they have not filled this for patient before and were just going by her insurance. Let them know that Caitlin VASQUEZ is ok with her filling now so she will have enough on her vacation. TC call back to [place]. Let her know it is considered an early refill and may have to pay OOP due to the insurance. She is ok with this and will wait for [facility] to contact her. Kylie Mosher RN August 29, 2023 4:35 PM [facility] 08-29-2023 Miscellaneous Notes Formattin g of this note might be different from the original. Palliative Medicine Care Coordination Follow up Phone Call Patient identified by name and : Yes Spoke to: [facility] pharmacy and patient Nurse calling to follow up on refill of oxycodone per patient's concerns. . Patient called concerned because [facility] saying her oxycodone was too early to fill. She said we discussed last week she was leaving for vacation Tuesday 08/29 which is tomorrow until 09/10. Caitlin VASQUEZ covering for Juan Francisco Hutchinson CNP did put in a new prescription 08/25 to [facility]. Spoke with pharmacy and they have not filled this for patient before and were just going by her insurance. Let them know that Caitlin VASQUEZ is ok with her filling now so she will have enough on her vacation. TC call back to [place]. Let her know it is considered an early refill and may have to pay OOP due to the insurance. She is ok with this and will wait for [facility] to contact her. Kylie Mosher RN August 29, 2023 4:35 PM documented in this encounter [facility] 08-27-2023 History of Presen t illness Narrative Associated Order(s): Additional Injections: R extensor compartment 1 Post-Procedure Diagnose(s): Tendinitis, de Quervain's Images from the original note were not included. DEPARTMENT OF ORTHOPAEDICS SUBJECTIVE Pt presents today for right wrist de Quervain tendinitis, discussed CSI and patient wishes to be considered a candidate. Denies any complication from previous injections. OBJECTIVE Additional Injections: R extensor compartment 1 for de Quervain's tenosynovitis Informed Consent Consent Obtained: Verbal [place] Protocol A moment to CARE was completed. SIGN IN Personnel directly involved with the procedure wore the appropriate PPE. Special Equipment: N/A Patient/Surrogate Stated/Verified: Patient name, Date of , Intended procedure and Relevant allergies TIME OUT Intended patient and procedure match the source document(s). Consent documented and matches the intended procedure. Relevant labs, photos, and/or imaging studies have been reviewed. Correct side/site marked and visible. Medications required for procedure verified. No fire risk assessment and interventions applicable. No implant(s) inserted. 08/27/2023 8:18 AM The procedure site was prepped in the usual sterile fashion. Medications: 6 mg betamethasone acetate-betamethasone sodium phosphate 6 mg/mL Anesthetics: 1 mL lidocaine (PF) 10 mg/mL (1 %) Outcome: tolerated well, no immediate complications Post-injection instructions were reviewed with the patient and the patient voiced understanding of these instructions. SIGN OUT No specimen collected. No instruments, equipment or retained foreign bodies applicable. Post-procedure follow-up management communicated and Plan of Care Visit completed when applicable ASSESSMENT Tendinitis, de quervain's (primary encounter diagnosis) PLAN Recommend ice 10 to 15 minutes 2-3 times daily. Recommend use of lidocaine cream, may apply up to 4 times daily. Follow up as needed Sherly Bruner PA-C documented in this encounter [facility] 08-26-2023 Telephone encount er Note Patient requesting refills. She is leaving Tuesday 08/29 through 09/10 and only got 70 tablets last fill. Confirmed [facility] pharmacy Last ordered 08/06/2023 by Juan Francisco Hutchinson CNP Next scheduled follow up appointment 09/16/2023. Requested Prescriptions Pending Prescriptions Disp Refills oxyCODONE IR (ROXICODONE) 10 mg tab 90 tablet 0 Sig: Take 1 tablet by mouth every 8 hours as needed for pain for up to 30 days. Kylie Mosher RN August 26, 2023 [facility] 08-26-2023 Miscellaneous Notes Formattin g of this note is different from the original. Patient requesting refills. She is leaving Tuesday 08/29 through 09/10 and only got 70 tablets last fill. Confirmed [facility] pharmacy Last ordered 08/06/2023 by Juan Francisco Hutchinson CNP Next scheduled follow up appointment 09/16/2023. Requested Prescriptions Pending Prescriptions Disp Refills oxyCODONE IR (ROXICODONE) 10 mg tab 90 tablet 0 Sig: Take 1 tablet by mouth every 8 hours as needed for pain for up to 30 days. Kylie Mosher RN August 26, 2023 documented in this encounter [facility] 08-14-2023 Telephone encount er Note Last ov- 08/06/23 Next OV- 09/26/23 Patient requests via MyChart refills as follows: Requested Prescriptions Pending Prescriptions Disp Refills ipratropium-albuterol (DUONEB) 0.5 mg-3 mg(2.5 mg base)/3 mL nebu 1620 mL 2 Sig: inhale contents of 1 vial ( 3 MILLILITERS ) in nebulizer by mouth and INTO THE LUNGS every 6 hours if needed for wheezing or shortness of breath Please review and advise. Renetta Cuellar MA [facility] 08-14-2023 Miscellaneous Notes Formattin g of this note is different from the original. Last ov- 08/06/23 Next OV- 09/26/23 Patient requests via MyChart refills as follows: Requested Prescriptions Pending Prescriptions Disp Refills ipratropium-albuterol (DUONEB) 0.5 mg-3 mg(2.5 mg base)/3 mL nebu 1620 mL 2 Sig: inhale contents of 1 vial ( 3 MILLILITERS ) in nebulizer by mouth and INTO THE LUNGS every 6 hours if needed for wheezing or shortness of breath Please review and advise. Renetta Cuellar MA documented in this encounter [facility] 08-12-2023 History of Presen t illness Narrative PALLIATIVE MEDICINE PROGRESS NOTE SERVICE DATE: August 12, 2023 IDENTIFICATION AND INTRODUCTION: Celso Potts is a 43 year old female This visit took place Virtually; I have communicated my name and active licensure. The patient's identity and physical location were verified at the time of this visit. The patient or their legal customer solutions representative has been informed of the risks and benefits of -- and alternatives to -- treatment through a remote evaluation and consents to proceed with the evaluation remotely. CHIEF COMPLAINT: No chief complaint on file. PERTINENT MEDICAL HISTORY: Celso Potts is a 43 yo female with a history of psoriatic [...] control needs. Subjective Last pall care visit 07/10 Hospitalized again for B pneumonia. Just finished steroids today. Finished antibiotics Needed oxygen in hospital. Breathing feels a lot better since discharge Doing more deep breathing. Chest is not as tight now. Her significant other is also using cupping on her back Using nebs and inhalers. Dry mouth still significant No thrush. Last visit took her down on flexeril and oxycodone Pain is stable. No confusion, oversedation, or myoclonus Mood is about the same. But anxiety continues to be significant Will talk with PCP about psychology - because she is ready for counseling. REVIEW OF SYSTEMS: Review of Systems Modified ESAS (Sidney Symptom Assessment Scale) Information Provided By: Patient Pain: Mild Nausea: None Loss of Appetite: None Constipation: None Shortness of Breath: Mild Drowsiness: None Tiredness: Moderate Depression: None Anxiety: Moderate How you feel overall: Fair Objective PHYSICAL EXAMINATION: [facility] 11/18/2012 Physical Exam Constitutional: General: She is not in acute distress. Pulmonary: Effort: Pulmonary effort is normal. No respiratory distress. Neurological: Mental Status: She is alert and oriented to person, place, and time. Psychiatric: Mood and Affect: Mood normal. DATA: Diagnostic tests reviewed for today's visit: Most recent labs Creatinine Date Value Ref Range Status 08/05/2023 0.90 0.58 - 0.96 mg/dL Final CrCl cannot be calculated (Unknown ideal weight.). Opioid Management: Yes Indication for Opioid Prescribing: [...] APPROPRIATELY filled. No suspicious activity was identified. 08/12/2023 by Juan Francisco Hutchinson APRN.INTERNET MARKETING CONSULTANT Urine Screen Lab Results Component Value Date [...] Urine pH, Pain O[place] 6.3 02/24/2021 Specific [place],Ur Pain Ocasio 1.012 02/24/2021 [place],Ur 46 02/24/2021 [...] such side effects. She is agreeable. - continue cyclobenzaprine 10 mg BID PRN for muscle cramps (has recently been taking only PRN per her report) - continue oxycodone 10 mg Q8H PRN with the [...] reduction - currently prescribed by PCP) - continue Voltaren gel QID to joints - previously discussed duloxetine for co management of anxiety also - declined. (F43.22) Adjustment disorder with anxious mood - long standing history of anxiety, now with cancer in remission she is having a hard time transitioning back into normal daily routines with constant worry of recurrence. - did not schedule with psychology - but reports now feeling ready to schedule. She will ask PCP for referral locally - she is taking lorazepam per PCP order. Has tapered dosing to only HS per her report - consider SSRI vs SNRI addition - in particular Cymbalta to assist with chronic pain (R53.83) Fatigue, unspecified type - likely multifactorial with polypharmacy and now proven adrenal insufficiency. She was unable to tolerate oral hydrocortisone. - missed endocrinology appointment 2/2 hospitalization. She will call to reschedule. - working on weaning medications to help with day time energy. I spent a total of 35 minutes on the date of the service which included preparing to see the patient, tezo-cq-jpky patient care, completing clinical documentation, and counseling and educating the patient/family/caregiver. Some elements copied from my note on 07/11/23, the elements have been updated and all reflect current decision making from today, 08/12/2023. Next Visit: 4 Weeks via virtual visit Palliative Medicine Nurse to do telephonic follow-up: No Direct Care Counselor Services: None at this time Juan Francisco Hutchinson APRN.INTERNET MARKETING CONSULTANT August 12, 2023 1:35 PM This note may have been partially generated using the Dragon voice recognition system. While every effort was made to correct voice recognition errors, kindly be aware that some errors may occasionally occur. documented in this encounter [facility] 08-06-2023 History of Presen t illness Narrative Images from the original note were not included. . [facility] PULMONARY DEPARTMENT Follow-Up Clinic Note Ms. Potts is a 43 year old female who presents to the [facility] [place] for follow up of pneumonia. Patient's primary senior property manager is Dr. Carver. Last office visit was 06/28/23. 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 Former smoker. INTERVAL HPI/ROS Today Celso Potts is here to follow up on recent hospitalization for pneumonia 07/31/23-08/01/23. She started to feel chills and run down last week. Temp was 100.9, then 102.9 after acetaminophen on Saturday. Blood-tinged sputum with dark clots, which turned to bright red blood after discharge. SpO2 86% on room air. She was admitted to [facility] overnight for pneumonia. (Image request sent.) She was treated with IV Rocephin and steroids. She was discharged home with Levaquin x 10 days and prednisone taper starting at 60 mg. Shortness of breath is improved but still slightly above baseline, partly due to heat/humidity. She used to have oxygen at home, but returned it herself quite some time ago. Current Treatment Plan Trelegy 200 mcg Albuterol HFA PRN - has, doesn't help Duoneb NEB PRN - TID right now, causes sore throat/hoarse voice Azelastine - not taking since she was using OTC sinus medicine Acapella Review of systems completed and is negative except as noted above. Social History Tobacco Use Smoking status: Former Years: 10 Types: Cigarettes Quit date: 01/18/2012 Years since quittin.5 Passive exposure: Past Smokeless tobacco: Never Vaping [...] tab Take 1 tablet by mouth every 8 hours as needed for pain for up to 30 days. predniSONE (DELTASONE) 10 mg tablet take 6 tablets by mouth daily for 2 days then take 5 tablets zuri... (REFER TO PRESCRIPTION NOTES). skpqgcapruc-zhuotgggq-yipfzeri (TRELEGY ELLIPTA) 200-62.5-25 mcg inhalation powder Inhale 1 Puff as instructed once daily. ipratropium-albuterol (DUONEB) 0.5 mg-3 mg(2.5 mg base)/3 mL nebu inhale contents of 1 vial ( 3 MILLILITERS ) in nebulizer by mouth and INTO THE LUNGS every 6 hours if needed for wheezing or shortness of breath XARELTO 10 mg tablet take 1 tablet by mouth once daily cyclobenzaprine (FLEXERIL) 10 mg tablet Take 1 tablet by mouth two times a day as needed for muscle spasm. levoFLOXacin (LEVAQUIN) 750 mg tablet Take 1 tablet by mouth every afternoon. diclofenac (VOLTAREN) 1 % topical gel Apply 4 g to affected area four times daily. pantoprazole DR (PROTONIX) 40 mg tablet Take 1 tablet by mouth once daily. prochlorperazine (COMPAZINE) 10 mg tablet take 1 tablet by mouth every 6 hours if needed LORazepam (ATIVAN) 0.5 mg take 1 tablet by mouth four times a day if needed for anxiety Biotin 2,500 mcg cap mirtazapine (REMERON) 30 [...] C No.3 (B COMPLEX PLUS VITAMIN C) 52-55-73-5-300 mg cap Take 1 tablet by mouth once daily. Lactobac no.41/Bifidobact no.7 (PROBIOTIC-10 ORAL) Take by mouth. atenolol (TENORMIN) 50 mg tablet take 1 tablet by mouth twice a day CHOLECALCIFEROL, VITAMIN D3, (VITAMIN D3 ORAL) Take 1,000 Units by mouth once daily. PHYSICAL EXAM BP 120/76 Pulse 91 Ht 5' 10.866 (1.80m) Wt 0 lb (0.0kg) SpO2 97[RA]% LMP 11/18/2012 Physical Exam Vitals reviewed. Constitutional: [...] expiration, respiratory distress or retractions. Breath sounds: Normal breath sounds. No wheezing, rhonchi or rales. Musculoskeletal: Right [...] cooperative. DIAGNOSTICS Testing I Reviewed Today: See [employer] for all available results and images. PFT/Procedures No new results. Imaging Image/report request sent x 2 to [facility] for CXR results from 08/01/23. Recent Results (from the past 4464 hour(s)) [...] * * Final * * * Lab/Micro Latest Ref Rng & Units 08/05/2023 CBC WBC 3.70 - 11.00 k/uL 15.65 RBC 3.90 - 5.20 m/uL 4.53 Hemoglobin 11.5 - 15.5 g/dL 14.1 Hematocrit 36.0 - 46.0 % 42.8 MCV 80.0 - 100.0 fL 94.5 MCH 26.0 - 34.0 pg 31.1 MCHC 30.5 - 36.0 g/dL 32.9 RDW-CV 11.5 - 15.0 % 12.8 Platelet Count 150 - 400 k/uL 332 MPV 9.0 - 12.7 fL 9.2 Baso% % 0.2 Abs Neut (ANC) 1.45 - 7.50 k/uL 12.14 Abs Lymph 1.00 - 4.00 k/uL 2.35 Abs [place] <0.87 k/uL 0.84 Abs Eosin <0.46 k/uL 0.09 Abs Baso <0.11 k/uL 0.03 NRBC /100 WBC 0.0 Latest Ref Rng & Units 08/05/2023 CMP Sodium 136 - 144 mmol/L 142 Potassium 3.7 - 5.1 mmol/L 3.6 Chloride 98 - 107 mmol/L 103 CO2 22 - 30 mmol/L 29 Glucose 74 - 99 mg/dL 109 BUN 7 - 21 mg/dL 15 Creatinine 0.58 - 0.96 mg/dL 0.90 EGFR >=60 mL/min/1.73m 83 Protein, Total 6.3 - 8.0 g/dL 6.7 Albumin 3.9 - 4.9 g/dL 3.9 Calcium 8.5 - 10.2 mg/dL 9.7 Bilirubin, Total 0.2 - 1.3 mg/dL 0.5 AST 13 - 35 U/L 25 ALT 7 - 38 U/L 58 Alkaline Phosphatase 34 - 123 U/L 69 ASSESSMENT & PLAN Pneumonia due to infectious organism, unspecified laterality, unspecified part of lung - ICD9: 486, ICD10: J18.9 (primary diagnosis) Pulmonary hypertension (HCC) - ICD9: 416.8, ICD10: I27.20 Hospital discharge follow-up - ICD9: V67.59, ICD10: Z09 - Continue Levaquin 500 mg x 10 days as ordered at hospital discharge. Patient has recent history of sputum culture positive for steno. - Continue prednisone taper as ordered at hospital discharge, started with 60 mg dose. - XR CHEST 2V FRONTAL/LAT 4 weeks from now - - We will continue to work on getting images/reports from [facility] for comparison. - OXIMETRY WITH AMBULATION prior to next visit (when off prednisone) to reassess need for supplemental oxygen with exertion. - - Patient previously returned her oxygen to the [email or web address]. - Let me know if you feel your symptoms start to worsen again, or do not return to your usual baseline after completing antibiotics/steroids. Follow up with Dr. Carver in September as already scheduled, and as needed. Patient instructed to call our office, PCP, or go to the emergency department for new or worsening problems or symptoms. I spent a total of 38 minutes on the date of the service which included preparing to see the patient, aene-pu-lwyd patient care, completing clinical documentation, obtaining and/or reviewing separately obtained history, performing a medically appropriate examination, counseling and educating the patient/family/caregiver, and ordering medications, tests, or procedures. Radha Ruano DNP, [facility] documented in this encounter [facility] 08-06-2023 Telephone encount er Note [facility] checked and validated. All prescriptions have been APPROPRIATELY filled. No suspicious activity was identified. 08/06/2023 by Juan Francisco Hutchinson APRN.CNP Rx sent Juan Francisco Hutchinson APRN.CNP [facility] 08-06-2023 Miscellaneous Notes Formattin g of this note might be different from the original. [facility] website checked and validated. All prescriptions have been APPROPRIATELY filled. No suspicious activity was identified. 08/06/2023 by Juan Francisco Hutchinson APRN.CNP Rx sent Juan Francisco Hutchinson APRN.CNP Patient Mycharts requesting refills as follows: Last ordered 2023 Next scheduled follow up appointment 08/12/2023. Requested Prescriptions Pending Prescriptions Disp Refills cyclobenzaprine (FLEXERIL) 10 mg tablet 60 tablet 0 Sig: Take 1 tablet by mouth two times a day as needed for muscle spasm. oxyCODONE IR (ROXICODONE) 10 mg tab 90 tablet 0 Sig: Take 1 tablet by mouth every 8 hours as needed for pain for up to 30 days. Kylie Mosher RN August 05, 2023 documented in this encounter [facility] 08-05-2023 Telephone encount er Note Patient Mycharts requesting refills as follows: Last ordered 2023 Next scheduled follow up appointment 08/12/2023. Requested Prescriptions Pending Prescriptions Disp Refills cyclobenzaprine (FLEXERIL) 10 mg tablet 60 tablet 0 Sig: Take 1 tablet by mouth two times a day as needed for muscle spasm. oxyCODONE IR (ROXICODONE) 10 mg tab 90 tablet 0 Sig: Take 1 tablet by mouth every 8 hours as needed for pain for up to 30 days. Kylie Mosher RN August 05, 2023 [facility] 08-05-2023 Telephone encount er Note She preferred to come into the office to see you. [facility] 08-05-2023 Miscellaneous Notes Formattin g of this note might be different from the original. She preferred to come into the office to see you. Spoke with patient on 08/05/2023. Patient is rescheduled accordingly. documented in this encounter [facility] 08-05-2023 Telephone encount er Note Spoke with patient on 08/05/2023. Patient is rescheduled accordingly. [facility] 08-04-2023 History of Presen t illness Narrative PATIENT NAME: Celso Potts DATE: 08/05/2023 PRIMARY CARE PHYSICIAN: Jose Vail MD OTHER PHYSICIANS: Dr. Cyn Ramires; Dr. Gurpreet Unger; Juan Francisco Hutchinson CNP ([facility] Pall Med), Dr. Jane Del Valle ([facility] Rad Onc), Dr. Summer Carver ([facility] Pulmonary), Dr Jaxson Gamez ([facility] Dermatology) Portions of this encounter note have been copied from my note from 06/10/2023 and has been updated where appropriate, and reflect my current medical decision making from today. CC: This is a 43 year old female with recurrent Hodgkin's disease, seen for scheduled follow-up. INTERIM HISTORY: Since the patient's last visit here she has had recurrent pulmonary symptoms. Predominantly she has intermittent fevers with progressive cough and shortness of breath, clinically consistent with pneumonia. She has required several courses of antibiotics and steroids. Most recently she presented on 07/30/2023 and was started on Levaquin x 10 days plus a tapering dose of prednisone. With this her acute symptoms have improved. Otherwise she has had no significant medical changes. She remains extremely anxious and somewhat depressed in regards to her medical condition. No recent night sweats or weight loss. No unusual pain. MEDICATIONS: cyclobenzaprine (FLEXERIL) 10 mg tablet Take 1 tablet by mouth two times a day as needed for muscle spasm. diclofenac (VOLTAREN) 1 % topical gel Apply 4 g to affected area four times daily. oxyCODONE IR (ROXICODONE) 10 mg tab Take 1 tablet by mouth every 8 hours as needed for pain for up to 30 days. fpsohoguttf-itntlvgme-woxydpfc (TRELEGY ELLIPTA) 200-62.5-25 mcg inhalation powder Inhale 1 Puff as instructed once daily. ipratropium-albuterol (DUONEB) 0.5 mg-3 mg(2.5 mg base)/3 mL nebu inhale contents of 1 vial ( 3 MILLILITERS ) in nebulizer by mouth and INTO THE LUNGS every 6 hours if needed for wheezing or shortness of breath pantoprazole DR (PROTONIX) 40 mg tablet Take 1 tablet by mouth once daily. prochlorperazine (COMPAZINE) 10 mg tablet take 1 [...] C No.3 (B COMPLEX PLUS VITAMIN C) 96-79-54-5-300 mg cap Take 1 tablet by mouth once daily. Lactobac no.41/Bifidobact no.7 (PROBIOTIC-10 ORAL) Take by mouth. atenolol (TENORMIN) 50 mg tablet take 1 tablet by mouth twice a day CHOLECALCIFEROL, VITAMIN D3, (VITAMIN D3 ORAL) Take 1,000 Units by mouth once daily. ALLERGIES: Chlorhexidine and Sulfa (Sulfonamide Antibiotics) PAST [...] SYSTEMS: As above PHYSICAL EXAM: Vitals: BP 123/86 Pulse 88 Temp 36.4 C (97.6 F) (Temporal) Resp 16 LMP 11/18/2012 SpO2 95% General appearance: well appearing, alert, in no [...] Normal LABORATORY DATA: Hemoglobin (g/dL) Date Value 08/05/2023 14.1 04/05/2021 15.3 Hematocrit (%) Date Value 08/05/2023 42.8 04/05/2021 45.8 WBC (k/uL) Date Value 08/05/2023 15.65 04/05/2021 8.31 Platelet Count (k/uL) Date Value 08/05/2023 332 04/05/2021 277 RADIOLOGY/OTHER STUDIES: 05/20/2023 PET scan IMPRESSION: HEAD/NECK: * No FDG avid neoplastic process. CHEST: * No FDG avid neoplastic process. * Small left pleural effusion; mildly increased in size in the interim. Otherwise no significant change in the appearance of the chest. ABDOMEN/PELVIS: * No FDG avid neoplastic process. MUSCULOSKELETAL: * No FDG avid neoplastic process. 04/02/2023 Chest x-ray ([facility]) Airspace opacities in the medial lungs could [...] we will continue close observation. Return in 3 months for follow-up and labs. Unless new symptoms develop we will restage again with a PET scan at 6 months (November 2023). 2. 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 3. Restrictive lung [...] reconsider intervention if symptoms worsen. 11. Chronic fatigue, anxiety and depression The patient has a long history of chronic fatigue, most likely related to her underlying disease, extensive prior treatment, and multiple medications. As a result she has secondary anxiety and depression. Continue management per PCP/[facility] palliative medicine. Alexsander Ledezma MD documented in this encounter [facility] 08-01-2023 Telephone encount er Note 1st attempt LVM to schedule appointment, Noa Schwab August 01, 2023 [facility] 08-01-2023 Miscellaneous Notes Formattin g of this note might be different from the original. 1st attempt LVM to schedule appointment, Noa Schwab August 01, 2023 Please contact Celso Potts to schedule hospital f/u visit with me at her earliest convenience next week. KalebRaffiah documented in this encounter [facility] 08-01-2023 Telephone encount er Note Please contact Celso Potts to schedule hospital f/u visit with me at her earliest convenience next week. Radha Manuel [facility] 07-19-2023 History of Presen t illness Narrative Radiology Service Progress Note PATIENT NAME: Celso Potts DATE OF SERVICE: July 19, 2023 TIME: [...] PATIENT PRESENTS WITH AN IMPLANTABLE OR ATTACHED INFORMATION CODER: No RADIOLOGY DEPARTMENT: General X-ray: Exam(s) Completed: GI/ Procedure(s): Esophogram with barium contrast PERIPHERAL IV DATA: Not applicable SIGNED BY: RT Beverley(Junior) July 19, 2023 1:39 PM documented in this encounter [facility] 2023 Instructions Juan Francisco Hutchinson APRN.CNP - 2023 10:48 AM EDT Juan Francisco Hutchinson CNP Department of Palliative and Supportive Care Palliative Care - Specialty services in symptom management and support For questions or prescription refills, call: [phone] Saturday - Saturday 9AM-5PM ERVIN Corrales, RN - Senior Technical Architect Please call 3-5 days in advance for medication refills Evenings, Weekends, Holidays: [phone] (ask for palliative medicine on-call provider) For appointments, cancellations or reschedule, call: [phone] documented in this encounter [facility] 2023 History of Presen t illness [...] during the day while awake. Modified ESAS (Sidney Symptom Assessment Scale) Information Provided By: Patient [...] was identified. 2023 by Juan Francisco Hutchinson APRN.INTERNET MARKETING CONSULTANT Urine Screen Lab Results Component Value Date [...] Urine pH, Pain [place] 6.3 02/24/2021 Specific [place],Ur Pain Ocasio 1.012 02/24/2021 [place],Ur 46 02/24/2021 [...] via a virtual visit Juan Francisco Hutchinson APRN.INTERNET MARKETING CONSULTANT 2023 6:35 AM This note may have been partially generated using the SmartFleet voice recognition system. While every effort was made to correct voice recognition errors, kindly be aware that some errors may occasionally occur. documented in this encounter [facility] 07-10-2023 Note HNO ID: [id number] Author: CYNTHIA GUAJARDO CCC-HOSPITAL RECEPTIONIST Service: ? Author Type: Speech Language Pathologist Type: Progress Notes Filed: 07/10/2023 14:27 Note Text: -------- Summary: MBSS -------- Start of Care Date: 07/10/23 Onset Date: 05/22/23 [facility] MODIFIED BARIUM SWALLOW [...] developing pulmonary complications related to swallowing abilities. HOSPITAL RECEPTIONIST provided reflux precaution handout and contact information to schedule esophagram. HOSPITAL RECEPTIONIST recommends follow up with GI given noted [...] Consistencies Provided: Thin Liquids, Mildly Thick Liquids ([place] Thick), Pureed Solids, Soft and Bite-Sized Solids, [...] 4, Mildly Thick Liquids IDDSI Level 2 ([place] Thick), Thin Liquids IDDSI Level 0 Education: Education Learning Preferences: Explanation Barriers: None TREATMENT: Performed Modified Barium Swallowing Study (57614). Evaluation: Modified Barium Swallow Evaluation (27428) Education regarding findings from today's Modified Barium Swallowing study (fluoroscopic study) and suggested plans for tk (more content not included)... [facility] 07-10-2023 Note HNO ID: [id number] Author: ROSENDO LOW RT(R) Service: Radiology Author [...] PATIENT PRESENTS WITH AN IMPLANTABLE OR ATTACHED INFORMATION CODER: No RADIOLOGY DEPARTMENT: General X-ray: Exam(s) Completed: GI/ Procedure(s): Modified barium swallow with barium contrast PERIPHERAL IV DATA: Not applicable SIGNED BY: RT Jasvir(R) July 10, 2023 2:04 PM [facility] 07-10-2023 History of Presen t illness Narrative Summary: MBSS Start of Care Date: 07/10/23 Onset Date: 05/22/23 [facility] MODIFIED BARIUM SWALLOW [...] developing pulmonary complications related to swallowing abilities. HOSPITAL RECEPTIONIST provided reflux precaution handout and contact information to schedule esophagram. HOSPITAL RECEPTIONIST recommends follow up with GI given noted [...] Consistencies Provided: Thin Liquids, Mildly Thick Liquids ([place] Thick), Pureed Solids, Soft and Bite-Sized Solids, [...] 4, Mildly Thick Liquids IDDSI Level 2 ([place] Thick), Thin Liquids IDDSI Level 0 Education: Education Learning Preferences: Explanation Barriers: None TREATMENT: Performed Modified Barium Swallowing Study (05915). Evaluation: Modified Barium Swallow Evaluation (46859) Education regarding findings from today's Modified Barium Swallowing study (fluoroscopic study) and suggested plans for treatment were provided to the patient through verbal / written instruction, images and/or demonstration. Patient was able to demonstrate understanding of education provided this date. Billing: Modified Barium Swallow (11036) Total time: 25 minutes Cynthia Guajardo CCC-HOSPITAL RECEPTIONIST documented in this encounter [facility] 07-10-2023 History of Presen t illness [...] PATIENT PRESENTS WITH AN IMPLANTABLE OR ATTACHED INFORMATION CODER: No RADIOLOGY DEPARTMENT: General X-ray: Exam(s) Completed: GI/ Procedure(s): Modified barium swallow with barium contrast PERIPHERAL IV DATA: Not applicable SIGNED BY: Rosendo Low RT(R) July 10, 2023 2:04 PM documented in this encounter [facility] 06-28-2023 History of Presen t illness [...] PFT: SPIROMETRY - BASELINE AND POST DILATOR ([id number]) - ordered on 03/28/23 Impression: Spirometry shows [...] in September as scheduled Summer Carver MD, [facility] [place] documented in this encounter [facility] 06-14-2023 Telephone encount er Note Spoke to patient and scheduled Cardiology appointment with Dr. Elliott at [facility] in [place] on 07/12/2023 with a Chest US same day prior also at [facility] in [place]. Patient added to Dr. Carver's schedule on 06/28/[address] [facility] and added to wait list as well. Patient agreeable to all appointments. [facility] 06-14-2023 Miscellaneous Notes Formattin g of this note might be different from the original. Spoke to patient and scheduled Cardiology appointment with Dr. Elliott at [facility] in [place] on 07/12/2023 with a Chest US same day prior also at [facility] in [place]. Patient added to Dr. Carver's schedule on 06/28/[address] [facility] and added to wait list as well. [...] be added onto Dr. Carver's schedule at [place] on Saturday06/28/23 at 11 am (it is a hospital day for her but adding her on per Dr. Carver). Dr. Carver would also like her put on the cancellation list for a sooner appt. CC PCP Radha Rick documented in this encounter [facility] 06-14-2023 Telephone encount er Note Spoke with patient and advised of message below. Patient verbalized understanding. Please call patient to help schedule as per below. [facility] 06-14-2023 Telephone encount er Note Please let Celso know I've sent her a message with Dr. Carver's recommendations, then transfer to scheduling for cardiology referral and US chest. Ms. Potts also needs to be added onto Dr. Carver's schedule at [place] on Saturday06/28/23 at 11 am (it is a hospital day for her but adding her on per Dr. Carver). Dr. Carvre would also like her put on the cancellation list for a sooner appt. CC PCP Radha Rick [facility] 06-13-2023 Telephone encount er Note Images from the original note were not included. Received coverage denial letter from [employer] Medication:tiotropium bromide (SPIRIVA RESPIMAT) 2.5 mcg/actuation inhaler PA Status: Denied Please see alternative medications below [facility] 06-13-2023 Miscellaneous Notes Formattin g of [...] wait for outcome documented in this encounter [facility] 06-13-2023 Telephone encount er Note Images from the original note were not included. Received PA request via covermymeds for Spiriva Submitted E-PA Will wait for outcome [facility] 06-13-2023 History of Presen t illness Narrative Images from the original note were not included. . [facility] PULMONARY DEPARTMENT Follow-Up Clinic Note Ms. Potts is a 42 year old female who presents to the [facility] [place] for follow up of ongoing bronchitis symptoms. Patient's primary senior property manager is Dr. Carver. Last office visit [...] 04/19/23. She has had multiple visits with express care and her PCP for ongoing chest [...] / 12-day taper 05/28 DuoNeb NEB Q4H [place] 05/30 prednisone 40 mg x 5 days [...] spasm. azelastine 0.1% nasal spray Use 1 Ailey in each nostril two times a day. [...] C No.3 (B COMPLEX PLUS VITAMIN C) 42-66-37-5-300 mg cap Take 1 tablet by mouth [...] cooperative. DIAGNOSTICS Testing I Reviewed Today: See [facility] for all available results and images. [...] Lymph 1.00 - 4.00 k/uL 2.11 Abs [place] <0.87 k/uL 0.67 Abs Eosin <0.46 k/uL [...] She will return this to her local [facility] [place] lab. Given the complexity of her ongoing issues, I will reach out to her primary senior property manager Dr. Carver today to help further [...] which included preparing to see the patient, [id number] patient care, completing clinical documentation, performing a medically appropriate examination, counseling and educating the patient/family/caregiver, ordering medications, tests, or procedures, and communicating with other HCPs (not separately reported). Radha Ruano DNP, TELEPHONE ANSWERING SERVICE OPERATOR-INTERNET MARKETING CONSULTANT [facility] documented in this encounter [facility] 06-11-2023 Telephone encount er Note Pt informed of BR message and denies any questions, needs or concerns at this time. Appointment verified. Jeny Nava RN [facility] 06-11-2023 Telephone encount er Note ----- Message from Alexsander Ledezma MD sent at 06/11/2023 12:10 PM EDT ----- Please inform the patient that her IgG levels are normal, would not benefit from infusions. Her TFTs are normal, continue current dose of Synthroid. If still infectious symptoms after completing Z-Ron she should start the Levaquin. We will see her back as scheduled. [facility] 06-11-2023 Miscellaneous Notes Formattin g of [...] back as scheduled. documented in this encounter [facility] 06-10-2023 Telephone encount er Note PDMP website checked and validated. All prescriptions have been APPROPRIATELY filled. No suspicious activity was identified. 06/10/2023 by Juan Francisco Hutchinson APRN.INTERNET MARKETING CONSULTANT Rx sent Juan Francisco Hutchinson APRN.INTERNET MARKETING CONSULTANT [facility] 06-10-2023 Miscellaneous Notes Formattin g of this note might be different from the original. PDMP website checked and validated. All prescriptions have been APPROPRIATELY filled. No suspicious activity was identified. 06/10/2023 by Juan Francisco Hutchinson APRN.INTERNET MARKETING CONSULTANT Rx sent Juan Francisco Hutchinson APRN.INTERNET MARKETING CONSULTANT Patient requesting refills as follows: Last ordered 05/13/2023. Next scheduled follow up appointment 2023. Requested Prescriptions Pending Prescriptions Disp Refills oxyCODONE IR (ROXICODONE) 10 mg tab 120 tablet 0 Sig: Take 1 tablet by mouth every 6 hours as needed for pain for up to 30 days. Kylie Mosher RN June 10, 2023 documented in this encounter [facility] 06-10-2023 Telephone encount er Note Patient requesting refills as follows: Last ordered 05/13/2023. Next scheduled follow up appointment 2023. Requested Prescriptions Pending Prescriptions Disp Refills oxyCODONE IR (ROXICODONE) 10 mg tab 120 tablet 0 Sig: Take 1 tablet by mouth every 6 hours as needed for pain for up to 30 days. Kylie Mosher RN June 10, 2023 [facility] 06-09-2023 History of Presen t illness Narrative PATIENT NAME: Celso Potts DATE: 06/10/2023 PRIMARY CARE PHYSICIAN: Jose Vail MD OTHER PHYSICIANS: Dr. Cyn Ramires; Dr. Gurpreet Unger; Juan Francisco Hutchinson CNP ([facility] Pall Med), Dr. Jane Del Valle ([facility] Rad Onc), Dr. Summer Carver ([facility] Pulmonary), Dr Jaxson Gamez ([facility] Dermatology) Portions of this encounter note [...] shortness of breath with chest tightness. Per [facility] pulmonary (Dr. Carver) she was given several [...] spasm. azelastine 0.1% nasal spray Use 1 Ailey in each nostril two times a day. [...] C No.3 (B COMPLEX PLUS VITAMIN C) 54-19-14-5-300 mg cap Take 1 tablet by mouth [...] FDG avid neoplastic process. 04/02/2023 Chest x-ray ([facility]) Airspace opacities in the medial lungs could [...] 10). 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 Subjective Celso Potts is a 42 year [...] spasm. azelastine 0.1% nasal spray Use 1 Ailey in each nostril two times a day. [...] C No.3 (B COMPLEX PLUS VITAMIN C) 76-20-65-5-300 mg cap Take 1 tablet by mouth [...] Sclerosis Mother Coronary Artery Disease Maternal Grandfather [place] age 36 Coronary Artery Disease Paternal Grandfather [...] apprec recs. Will obtain chest x[facility] at [facility]. Give breathing treatment and re-evaluate. Reviewed diagnosis [...] 2023 4:03 PM documented in this encounter [facility] 05-28-2023 Miscellaneous Notes Formattin g of [...] wheezing or shortness of breath Rx #: [id number] Pharmacy comment: Please authorize 90 days supply for the patient. Please review and advise. Mitzi Hutchinson MA documented in this encounter [facility] 05-22-2023 History of Presen t illness Narrative Images from the original note were not included. [facility] [place] [facility] NOTE CC: Celso Potts is a [...] clinically indicated. May consider consult to GI, HOSPITAL RECEPTIONIST Loy Merino PA-C [facility] HPI: 42 [...] spasm. azelastine 0.1% nasal spray Use 1 Ailey in each nostril two times a day. [...] C No.3 (B COMPLEX PLUS VITAMIN C) 34-43-06-5-300 mg cap Take 1 tablet by mouth [...] Sclerosis Mother Coronary Artery Disease Maternal Grandfather [place] age 36 Coronary Artery Disease Paternal Grandfather [...] 4 - Moderate documented in this encounter [facility] 05-13-2023 Miscellaneous Notes Formattin g of this note might be different from the original. PDMP website checked and validated. All prescriptions have been APPROPRIATELY filled. No suspicious activity was identified. 05/13/2023 by Juan Francisco Hutchinson APRN.INTERNET MARKETING CONSULTANT Rx sent Juan Francisco Hutchinson APRN.INTERNET MARKETING CONSULTANT Patient requesting refills as follows: Last ordered 04/08/2023. Next scheduled follow up appointment 05/16/2023. Requested Prescriptions Pending Prescriptions Disp Refills oxyCODONE IR (ROXICODONE) 10 mg tab 120 tablet 0 Sig: Take 1 tablet by mouth every 6 hours as needed for pain for up to 30 days. Kylie Mosher RN May 13, 2023 documented in this encounter [facility] 05-07-2023 Miscellaneous Notes Formattin g of [...] May 07, 2023 documented in this encounter [facility] 04-19-2023 Note HNO ID: [id number] Author: LANI SMITH RT(R) Service: Radiology Author [...] PATIENT PRESENTS WITH AN IMPLANTABLE OR ATTACHED INFORMATION CODER: No RADIOLOGY DEPARTMENT: General X-ray: Exam(s) Completed: Chest X-Ray PERIPHERAL IV DATA: Not applicable SIGNED BY: RT Nishant(R) April 19, 2023 9:31 AM [facility] 04-19-2023 History of Presen t illness [...] PATIENT PRESENTS WITH AN IMPLANTABLE OR ATTACHED INFORMATION CODER: No RADIOLOGY DEPARTMENT: General X-ray: Exam(s) Completed: Chest X-Ray PERIPHERAL IV DATA: Not applicable SIGNED BY: RT Nishant(R) April 19, 2023 9:31 AM documented in this encounter [facility] 04-19-2023 History of Presen t illness Narrative Images from the original note were not included. . [facility] PULMONARY DEPARTMENT Follow-Up Clinic Note Ms. Potts is a 42 year old female who presents to the [facility] [place] for follow up of hospitalization for pneumonia secondary to influenza. Patient's primary senior property manager is Dr. Carver. PMH includes restrictive [...] difficulty swallowing and persistent hoarseness. Refer to [facility] ENT for repeat flex scope and [...] to worsen, and she went went to [facility] ED 03/31/23. SARS-CoV-2 TARA testing done at that time was negative. She was also negative for influenza A/influenza B antigens at that time. She was diagnosed with nonspecific viral illness and advised to stop molnupiravir at that time. Symptoms further worsened, especially dyspnea and wheezing, so she returned to [facility] ED 04/02/2023. This time she tested positive [...] daily. azelastine 0.1% nasal spray Use 1 Ailey in each nostril two times a day. [...] C No.3 (B COMPLEX PLUS VITAMIN C) 51-74-37-5-300 mg cap Take 1 tablet by mouth [...] cooperative. DIAGNOSTICS Testing I Reviewed Today: See [facility] for all available results and images. [...] - Will request most recent images from [facility] for comparison Follow up with Dr. Carver in Sep 2023 as already scheduled, and as needed. Contact Dr. Carver and myself for any persistent symptoms that do not return to baseline post-treatment. Patient instructed to call our office, PCP, or go to the emergency department for new or worsening problems or symptoms. Radha Ruano DNP, [place] [facility] [place] I spent a total of 46 minutes on the date of the service which included preparing to see the patient, ycol-gl-egpp patient care, completing clinical documentation, obtaining and/or reviewing separately obtained history, performing a medically appropriate examination, counseling and educating the patient/family/caregiver, and ordering medications, tests, or procedures. documented in this encounter [facility] 04-16-2023 History of Presen t illness Narrative PATIENT NAME: Celso Potts DATE: 04/16/2023 PRIMARY CARE PHYSICIAN: Jose Vail MD OTHER PHYSICIANS: Dr. Cyn Ramires; Dr. Gurpreet Unger; Juan Francisco Hutchinson CNP ([facility] Pall Med), Dr. Jane Del Valle ([facility] Rad Onc), Dr. Summer Carver ([facility] Pulmonary), Dr Jaxson Gamez ([facility] Dermatology) Portions of this encounter note [...] shortness of breath. She was seen at [facility] emergency room on 03/30/2023, and apparently her [...] daily. azelastine 0.1% nasal spray Use 1 Ailey in each nostril two times a day. [...] C No.3 (B COMPLEX PLUS VITAMIN C) 50-74-06-5-300 mg cap Take 1 tablet by mouth [...] 04/05/2021 277 RADIOLOGY/OTHER STUDIES: 04/02/2023 Chest x-ray ([facility]) Airspace opacities in the medial lungs could [...] chronic restrictive lung disease. Continue management per [facility]. She was hospitalized at [facility] 04/02/2023 through 04/04/2023 with apparent influenza A and community-acquired pneumonia. Clinically improved with antibiotics. Currently on a prednisone taper. Per patient request we will arrange for follow-up with her [facility] senior property manager (Dr. Carver). 4. History of pulmonary [...] Alexsander Ledezma MD documented in this encounter [facility] 04-08-2023 Miscellaneous Notes Formattin g of this note might be different from the original. PDMP website checked and validated. All prescriptions have been APPROPRIATELY filled. No suspicious activity was identified. 04/08/2023 by Juan Francisco Hutchinson APRN.INTERNET MARKETING CONSULTANT Rx sent Juan Francisco Hutchinson APRN.INTERNET MARKETING CONSULTANT Patient requesting refills as follows: Last ordered [...] April 08, 2023 documented in this encounter [facility] 04-01-2023 Miscellaneous Notes Formattin g of this note might be different from the original. Patient will need lab orders for Saturday04/16/23. Thanks. Jeny Robert MA documented in this encounter [facility] 03-29-2023 History of Presen t illness Narrative Subjective Patient ID: Celso Potts is a 42 y.o. female who presents for covid +. Pt seen via telehealth using real time, two way, audio and video communication in place of an office visit. Pt gave verbal consent to this visit. Pt is currently located in her home in [place]. --- Appt for Covid + --- Onset [...] capsule; Refill: 0 documented in this encounter [facility] 03-28-2023 Instructions Kylie Nunes APRN.INTERNET MARKETING CONSULTANT - 03/28/2023 2:41 PM EST Continue Breo [...] any runs out. documented in this encounter [facility] 03-28-2023 History of Presen t illness [...] difficulty swallowing and persistent hoarseness. Refer to [facility] for repeat flex scope and assistance [...] or chills. Electronically signed by Kylie Nunes APRN.[facility] [place], [facility] March 28, 2023 2:55 PM Time [...] few weeks but is interested in a [facility] ENT if we can find one near [...] 10/14/2013 12/21/2013 03/11/2014 Haemophilus influenzae b-meningococcal bivalent (Lux-SenWW-DN) vaccine (MENHIBRIX) 10/14/2013 diphtheria tetanus (DT) vaccine, [...] of air trapping, less conspicuous. Kylie Nunes APRN.CNP March 28, 2023 This note was partially generated using [employer] voice recognition system, and there may be some incorrect words, spellings, and punctuation that were not noted in checking the note before saving. documented in this encounter [facility] 03-28-2023 Procedure note Associated Ord er(s): [...] TIME: 1:59 PM documented in this encounter [facility] 03-28-2023 History of Presen t illness Narrative PULM FUNCTION SMARTBLOCK: Provider: Ella Pretty APRN.INTERNET MARKETING CONSULTANT Spirometry w/BD: 1 DLCO: 1 Exhaled Nitric Oxide: 1 documented in this encounter [facility] 01-29-2023 Evaluation note Encounter Date Diagnosis [...] no improvement in 2 to 3 days 99.co Other 12-11-2023 Miscellaneous Notes* Telephone Encounter - Radha Song RN - 01/28/2023 1:47 PM EST Pt here for PET Benny labs for office f/u next week Please sign pended cortisol level if needed for f/u. Pt requested level Thank You! Radha Song RN [facility] Miscellaneous Notes* Telephone Encounter - Kristina [...] advise. Kristina Pete RN [facility] Miscellaneous Notes* Telephone Encounter - Anh [...] are back to baseline. [facility] History of Present illness Narrative* Alexsander Ledezma MD - 01/01/2023 7:39 AM EST PATIENT NAME: Celso Potts DATE: 01/01/2023 PRIMARY CARE PHYSICIAN: Jose Vail MD OTHER PHYSICIANS: Dr. Cyn Ramires; Dr. Gurpreet Unger; Juan Francisco Hutchinson CNP ([facility] Pall Med), Dr. Jane Del Valle ([facility] Rad Onc), Dr. Summer Carver ([facility] Pulmonary), Dr Jaxson Gamez ([facility] Dermatology) CC: This is a 42 [...] C No.3 (B COMPLEX PLUS VITAMIN C) 70-60-08-5-300 mg cap^Take 1 tablet by mouth once [...] PCP. Alexsander Ledezma MD documented in this encounter[facility] [facility] NoteHNO ID: [id number] Author: Juan Francisco Hutchinson APRN.INTERNET MARKETING CONSULTANT Service: ? Author Type: Nurse Practitioner Type: [...] [place]. Keeps well hydrated because dehydration has always made these symptoms worse. She is taking gabapentin 600 mg TID. Also taking oxycodone 10 mg 3-4 times per day Denies confusion, oversedation, myoclonus, constipation Fatigued but does not sleep during the day Going out with friends and keeping busy as much as she can Modified ESAS (Sidney Symptom Assessment Scale) Information Provided By: Patient [...] activities of daily living, (more content not included)...[facility]10-30-2023 Miscellaneous Notes * Telephone Encounter - Mitzi Brown - 12/17/2022 2:33 PM EDT Called patient and rescheduled with PFT's to January 03 and FU with SARAH documented in this encounterWooster Community Hospital09-18-2023 Miscellaneous Notes* Telephone Encounter - Juan Francisco Hutchinson APRN.CNP - 11/05/2022 4:38 PM EDT PDMP website checked and validated. All prescriptions have been APPROPRIATELY filled. No suspiciousactivity was identified. 11/05/2022 by Juan Francisco Hutchinson APRN.INTERNET MARKETING CONSULTANT Rx sent - earliest fill 11/09/22 Juan Francisco Hutchinson APRN.INTERNET MARKETING CONSULTANT * Telephone Encounter - Kylie Mosher RN [...] advise. Kylie Mosher RN documented in this encounterWooster Community Hospital08-31-2023 Miscellaneous Notes* Telephone Encounter - Kylie Mosher RN - 10/18/2022 1:34 PM EDT Prior Authorization Documentation Prior authorization requested via Covermymeds for the following medication: Medication: Lyrica 100 mg capsules Approved and authorizes your coverage from 02/18/2022 - 02/17/2023, Insurance Company Name: [employer] Phone number: [phone] Patient ID number: [id number] Da Silva [id number] Pharmacy Name: [facility] Telephone number: [phone] Kylie Mosher RN October 18, 2022 1:38 PM documented in this encounterWooster Community Hospital08-31-2023 Instructions* Patient Instructions* Juan Francisco Hutchinson APRN.CNP - 10/18/2022 11:50 AM EDT Juan Francisco Hutchinson CNP Department of Palliative and Supportive Care Palliative Care - Specialty services in symptom management and support For questions or prescription refills, call: [phone] Saturday - Saturday 9AM-5PM ERVIN Corrales, RN - Senior Technical Architect Please call 3-5 days in advance for medication refills Evenings, Weekends, Holidays: [phone] (ask for palliative medicine on-call provider) For appointments, cancellations or reschedule, call: [phone] documented in this encounterWooster Community Hospital08-31-2023 NoteHNO ID: [id number] Author: Juan Francisco Hutchinson APRN.PEDRO Service: ? [...] Denies confusion, oversedation, myoclonus, constipation. Modified ESAS (Sidney Symptom Assessment Scale) Information Provided By: Patient [...] Negative 02/24/2021 UQCANN <1 (more content not included)...[facility]08-31-2023 History of Present illness Narrative* [...] Denies confusion, oversedation, myoclonus, constipation. Modified ESAS (Sidney Symptom Assessment Scale) Information Provided By: Patient [...] was identified. 10/18/2022 by Juan Francisco Hutchinson APRN.INTERNET MARKETING CONSULTANT Urine Screen Lab Results Component Value Date [...] Urine pH, Pain Ocasio 6.3 02/24/2021 Specific [place],Ur Pain Ocasio 1.012 02/24/2021 Oxidants,Ur 46 02/24/2021 [...] may have been partially generated using the SmartFleet voice recognition system. While every effort was made to correct voice recognition errors, kindly be aware that some errors may occasionally occur. documented in this encounterWooster Community Hospital08-31-2023 Instructions* Patient Instructions* Zoila Pedersen RN - 10/18/2022 11:10 AM EDT Use warm compresses to left inner thigh daily for comfort documented in this encounterWooster Community Hospital08-31-2023 NoteHNO ID: [id number] Author: Zoila Pedersen RN Service: ? Author [...] Zoila Pedersen RN October 18, 2022 11:09 [facility]08-31-2023 History of Present illness Narrative* [...] 2022 11:09 AM documented in this encounterCleveland [id number] Miscellaneous Notes* Telephone Encounter - Kylie Mosher [...] advise. Kylie Mosher RN documented in this encounterWooster Community Hospital08-21-2023 Miscellaneous Notes* Telephone Encounter - Flori [...] advise. Flori Ford RN documented in this encounterWooster Community Hospital07-27-2023 History of Present illness Narrative* Summer [...] PFT: SPIROMETRY - BASELINE AND POST DILATOR ([id number]) - [facility] [address] [place] [address] Test Date: 2019-11-03 Pat Name: CELSO POTTS Department: Room: Gender: Female Rackman: Perla Baker : 1980 Requested By: Order Number: [id number] Reading MD: Justin Moreno Interpretive Statements PRE [...] 38 .4 FIVC L 2.35 2.35 0.0 XGJ22-26% L/s 2.36 2.36 3.81 5.55 61.8 3.00 78.7 27.2 BMR525% sec 7.37 5.99 -18.7 FETPEF sec 0.07 [...] , PFT that day Summer Carver MD, [facility] [place] documented in this encounterWooster Community Hospital07-05-2023 Instructions* Patient Instructions* Gunjan Joya LPN - 08/22/2022 2:50 PM EDT Follow up with Dr. Ramires in the beginning of November Patient will schedule PET scan documented in this encounterWooster Community Hospital07-05-2023 History of Present illness Narrative* Cyn [...] pneumonitis She saw Dr. Alejandro sarmiento at [facility] for 2nd opinion cell([phone]) She agreed with out plan and recommended [...] DATA CBC, CMP, [facility]SH [facility]. PET scan report and images were reviewed [facility]. Results werediscussed with patient and radiation oncology [...] FACP CC: Jose Parra documented in this encounterWooster Community Hospital06-27-2023 Miscellaneous Notes* Telephone Encounter - Juan Francisco Hutchinson APRN.CNP - 08/14/2022 1:29 PM EDT [facility] and [facility]. All prescriptions have been APPROPRIATELY filled. No suspiciousactivity was identified. 08/14/2022 by Juan Francisco Hutchinson APRN.INTERNET MARKETING CONSULTANT Rx sent Juan Francisco Hutchinson APRN.PEDRO * [...] advise. Kristina Pete RN documented in this encounterWooster Community Hospital06-16-2023 Miscellaneous Notes* Telephone Encounter - Ella Pretty APRN.CNP - 08/03/2022 12:15 PM EDT Called and spoke with patient, updated her on the plan discussed with Dr. Carver. She is aware of herscheduled appointment for 09/13. * Telephone Encounter - Mitzi Brown - 08/03/2022 8:34 AM EDT Patient is scheduled for 09/13 at 10am * Telephone Encounter - Ella Pretty APRN.CNP - 08/02/2022 4:42 PM EDT Discussed [...] her at another time. documented in this encounterWooster Community Hospital06-14-2023 Instructions* Patient Instructions* Ella Pretty APRN.CNP - 08/01/2022 10:15 AM EDT Start [...] sample in cup provided. documented in this encounterWooster Community Hospital06-14-2023 History of Present illness Narrative* Ella Pretty APRN.CNP - 08/01/2022 10:00 AM EDT Images [...] fever, or chills. Electronically signed by Ella Pretty APRN.[facility] [place], [facility] July 31, 2022 HPI: Celso Potts [...] listed in the HPI Modified Medical Research [place] Dyspnea Scale (MMRC) I only get breathless [...] C No.3 (B COMPLEX PLUS VITAMIN C) 34-54-88-5-300 mg cap Take 1 tablet by mouth [...] Sclerosis Mother Coronary Artery Disease Maternal Grandfather [place] age 36 Coronary Artery Disease Paternal Grandfather [...] 10/14/2013 12/21/2013 03/11/2014 Haemophilus influenzae b-meningococcal bivalent (Eod-ElqQQ-CM) vaccine (MENHIBRIX) 10/14/2013 diphtheria tetanus (DT) vaccine, [...] fatty infiltration. No evidence of adrenal mass.. Tractor Engine Assembler (topogram) images: No additional findings. YOGESH DAVIS [...] unlikely to be related to lymphoma RESULT: Tractor Engine Assembler (topogram) images: No additional findings. - Mediastinum [...] Montero MD Most recent labs reviewed. Ella Pretty APRN.PEDRO Hull spent a total of 30 minutes on the date of the service which included preparing to see the patient, nbzn-ed-sohr patient care, completing clinical documentation, obtaining and/or reviewing separately obtained history, performing a medically appropriate examination, counseling and educating the pat ient/family/caregiver, and ordering medications, tests, or procedures. documented in this encounterWooster Community Hospital06-01-2023 History of Present illness Narrative* Juan Francicso Hutchinson APRN.CNP - 07/19/2022 8:15 AM EDT PALLIATIVE MEDICINE [...] bilateral lung rodriguez. Finished steroids and antibiotics. [place] very good after this but then as [...] relaxants. Denies confusion, oversedation, myoclonus. Modified ESAS (Sidney Symptom Assessment Scale) Information Provided By: Patient [...] was identified. 07/19/2022 by Juan Francisco Hutchinson APRN.INTERNET MARKETING CONSULTANT Urine Screen Lab Results Component Value Date [...] Urine pH, Pain Ocasio 6.3 02/24/2021 Specific [place],Ur Pain Ocasio 1.012 02/24/2021 Oxidants,Ur 46 02/24/2021 [...] may have been partially generated using the SmartFleet voice recognition system. While every effort was made to correct voice recognition errors, kindly be aware that some errors may occasionally occur. documented in this encounterWooster Community Hospital05-31-2023 Miscellaneous Notes* Telephone Encounter - Flori Ford RN - 07/18/2022 12:09 PM EDT My chart appointment question response sent. Flori Ford RNCC Oliver Filter Operator documented in this encounterWooster Community Hospital05-31-2023 History of Present illness Narrative* Cyn [...] pneumonitis She saw Dr. Alejandro sarmiento at [facility] for 2nd opinion cell([phone]) She agreed with out plan and recommended [...] DATA CBC, CMP, TSH [facility]. PET scan report and images were reviewed [facility]. Results werediscussed with patient and radiation oncology [...] FACP CC: Jose Parra documented in this encounterWooster Community Hospital05-31-2023 Instructions* Patient Instructions* Gunjan Joya LPN - 07/18/2022 11:26 AM EDT Follow up with Dr. Ramires 08/14 at 9:50a PET scan a few days prior documented in this encounterWooster Community Hospital05-30-2023 History of Present illness Narrative* RT [...] 17, 2022 1:24 PM documented in this encounterWooster Community Hospital05-30-2023 Miscellaneous Notes* Telephone Encounter - Juan [...] advise. Kylie Mosher RN documented in this encounterWooster Community Hospital04-28-2023 Miscellaneous Notes* Telephone Encounter - Ella Pretty APRN.CNP - 06/15/2022 4:02 PM EDT Prescription for duonebs sent to pharmacy. Called patient and updated her. Also let her know she should discontinue her albuterol nebulizer once she starts her duonebs. * Telephone Encounter - Mitzi Hutchinson MA - 06/13/2022 1:30 PM EDT Called pharmacy on [facility] to verify they have medication in stock and I spoke with pharmacy resource tech Elis who states they have 1 box in stock. Please advise. * Telephone Encounter - HILARY Dougherty - 06/13/2022 1:16 PM EDT Celso Potts called today. : 1980 Allergies: Chlorhexidine and Sulfa (Sulfonamide Antibiotics) (home) [phone] (cell) Reason for call: Patient states that at the last office visit 06/04/22 the provider was going to call in [facility]. She states it was not called in . Please advise. e- [id number] [place] [address] - [address] [place] [phone] [place] [id number] Patient last appointment: 06/04/2022 The patients preferred pharmacy has been captured for this encounter? yes HILARY Dougherty documented in this encounterWooster Community Hospital04-25-2023 Miscellaneous Notes* Telephone Encounter - Juan Francisco Hutchinson APRN.CNP - 06/12/2022 12:06 PM EDT PDMP website checked and validated. All prescriptions have been APPROPRIATELY filled. No suspiciousactivity was identified. 06/12/2022 by Juan Francisco Hutchinson APRN.CNP Rx sent Juan Francisco Hutchinson APRN.INTERNET MARKETING CONSULTANT * Telephone Encounter - Kylie Mosher RN [...] advise. Kylie Mosher RN documented in this encounterWooster Community Hospital04-25-2023 Instructions* Patient Instructions* Gunjan Joya LPN - 06/12/2022 11:09 AM EDT Pt will schedule CT Follow up with Dr. Ramires 07/17 or 07/18 Schedule treatment 07/24 documented in this encounterWooster Community Hospital04-25-2023 Nurse Note* Vannessa Lopez Ma - 06/12/2022 10:50 AM EDT Called patient and got the voice mail. Left message to remind patient about the vv scheduled today at 10:50 am with documented in this encounterWooster Community Hospital04-25-2023 History of Present illness Narrative* Cyn Ramires MD - 06/12/2022 10:45 AM EDT [facility] VISIT This visit is a [facility] encounter which required patient- provider interaction for the medical decision making as documented below. Persons Present: patient I have communicated my name and active licensure. The patient s identity and physical location wereverified at the time of this visit. Celso Potts or their legal customer solutions representative has been informed ofthe risks and benefits of -- and alternatives to -- treatment through a remote evaluation and consents to proceed with the evaluation remotely. Total Time Spent: 5-10 minutes on this telephone encounter HISTORY REVIEWED (electronic chart updated): - medical history - medications - allergies Interval history: Patient tried to log into [employer] video visit virtual visit. Was not able [...] resuming Cyn Ramires MD documented in this encounterWooster Community Hospital04-13-2023 History of Present illness Narrative* Katarzyna Dover RT(Junior) - 05/31/2022 8:00 AM EDT Radiology Service [...] 31, 2022 7:59 AM documented in this encounterWooster Community Hospital04-03-2023 History of Present illness Narrative* Jane Del Valle MD - 05/21/2022 9:28 AM EDT No show. Jane Del Valle MD, MSc, MRCP, FRCR, DABR Radiation Oncology Staff Physician May 21, 2022 9:28 AM documented in this encounterWooster Community Hospital03-08-2023 Miscellaneous Notes* Telephone Encounter - Char [...] questions or concerns or Radiation Oncology Fellow Lighter after 5pm and on weekends for urgent issues. Patient verbalized understanding of when to seek medical attention and after hours number protocol. Follow up appointment: Reminded patient of virtual visit on 05/18/2022 with Sarah Carranza BSN, RN documented in this encounterWooster Community Hospital03-06-2023 Instructions* Patient Instructions* Juan Francisco Hutchinson APRN.PEDRO - 04/23/2022 10:30 AM EST Juan Francisco Hutchinson CNP Department of Palliative and Supportive Care Palliative Care - Specialty services in symptom management and support For questions or prescription refills, call: [phone] Saturday - Saturday 9AM-5PM ERVIN Corrales, RN - Senior Technical Architect Please call 3-5 days in advance for medication refills Evenings, Weekends, Holidays: [phone] (ask for palliative medicine on-call provider) For appointments, cancellations or reschedule, call: [phone] documented in this encounterWooster Community Hospital03-06-2023 History of Present illness Narrative* Juan [...] as weather changes to spring. Modified ESAS (Sidney Symptom Assessment Scale) Information Provided By: Patient [...] was identified. 04/23/2022 by Juan Francisco Hutchinson APRN.INTERNET MARKETING CONSULTANT Urine Screen Lab Results Component Value Date [...] Urine pH, Pain Ocasio 6.3 02/24/2021 Specific [place],Ur Pain Ocasio 1.012 02/24/2021 Oxidants,Ur 46 02/24/2021 [...] may have been partially generated using the SmartFleet voice recognition system. While every effort was made to correct voice recognition errors, kindly be aware that some errors may occasionally occur. documented in this encounterWooster Community Hospital03-03-2023 Miscellaneous Notes* Telephone Encounter - Char [...] M.D. Char MUELLER, RN documented in this encounterWooster Community Hospital02-27-2023 Miscellaneous Notes* Telephone Encounter - Juan Francisco Hutchinson APRN.PEDRO - 04/16/2022 1:38 PM EST PDMP website checked and validated. All prescriptions have been APPROPRIATELY filled. No suspiciousactivity was identified. 04/16/2022 by Juan Francisco Hutchinson APRN.INTERNET MARKETING CONSULTANT Rx sent Juan Francisco Hutchinson APRN.INTERNET MARKETING CONSULTANT * Telephone Encounter - Kylie Mosher RN [...] advise. Kylie Mosher RN documented in this encounterWooster Community Hospital02-22-2023 History of Present illness Narrative* Jane Del Valle MD - 04/11/2022 12:00 AM EST CELSO POTTS [id number] 04/11/[address] [facility] Department of Radiation Oncology [facility] RADIATION ONCOLOGY: COMPLETION NOTE DATE OF SIMULATION: [...] Electronically Signed cc: Jose Vail MD [id number] [place] [address] [place] [id number] [address] [facility] [address] documented in this encounterWooster Community Hospital02-06-2023 History of Present illness Narrative* Jane [...] medical record and/or letter via U.S. Mail. [facility] in the care of this individual. I spent over 50% of a total sqsy-kf-jnkz time of 60-80 minutes, counseling/coordinating patient care. Jane Del Valle MD, MSc, MRCP, FRCR, DABR Radiation Oncology Staff Physician March 26, 2022 11:25 AM documented in this encounterWooster Community Hospital02-03-2023 Nurse Note* Zoila Lane LPN - 03/23/2022 9:18 AM EST Radiation Oncology Nursing Note PATIENT NAME: Celso Potts PATIENT [facility] FACILITY/LOCATION: Main [place] PROCEDURE: Contrast Injection for CT Simulation Safety [...] NAME: Celso Potts PATIENT March 23, 2022 [facility] FACILITY/LOCATION: Main [place] READINESS TO LEARN Cognitive Ability: Alert and [...] need for social work, van service, and milieu manager. Was KP approved? No KP completed and on 03/07/22 scored 0 distress. Signed by: Zoila Lane LPN documented in this encounterWooster Community Hospital02-03-2023 History of Present illness Narrative* [facility] Provider - 03/23/2022 12:00 AM EST CELSO POTTSNancy [id number] 03/23/[address] [facility] Department of Radiation Oncology [facility] RADIATION ONCOLOGY - Therapist Injection Note Procedure: [...] Disposition: HOME Therapist: magali documented in this encounterWooster Community Hospital02-03-2023 History of Present illness Narrative* Jane Del Valle MD - 03/23/2022 12:00 AM EST CELSO POTTS [id number] 03/23/2022 [facility] Department of Radiation Oncology [...] Valle M.D. 37:10 AM documented in this encounterWooster Community Hospital02-02-2023 Miscellaneous Notes* Telephone Encounter - Dary [...] radiation. Dary Gonzalez RN documented in this encounterWooster Community Hospital01-29-2023 History of Present illness Narrative* Jane [...] C No.3 (B COMPLEX PLUS VITAMIN C) 55-25-24-5-300 mg cap^Take 1 tablet by mouth once [...] I spent over 50% of a total dojw-eb-wvlb time of 60-80 minutes, counseling/coordinating patient care. Signed by: Jane Del Valle MD, MSc, MRCP, FRCR, DABR Radiation Oncology Staff Physician March 18, 2022 11:55 PM cc: Jose Vail [address] [place] [address] [place] [address] No referring provider defined for this encounter. documented in this encounterWooster Community Hospital01-26-2023 Miscellaneous Notes* Telephone Encounter - Flori [...] Hutchinson APRN.CNP Rx sent Juan Francisco Hutchinson APRN.INTERNET MARKETING CONSULTANT * Telephone Encounter - Flori Ford RN [...] advise. Flori Ford RN documented in this encounterWooster Community Hospital01-18-2023 Instructions* Patient Instructions* Mackenzie Woods LPN - 03/07/2022 11:47 AM EST Unarrive tx today Schedule Office visit with Dr Ramires 03/28/22 @11:30am per Dr Ramires documented in this encounterWooster Community Hospital01-18-2023 History of Present illness Narrative* Cyn [...] fx was delivered to the mediastinal/hilar/left SC fuastina regions using 6 MV photons from07/27/2013 ? [...] pneumonitis She saw Dr. Alejandro sarmiento at [facility] for 2nd opinion cell([phone]) She agreed with out plan and recommended [...] the spleen, liver and lymph node at [facility] Interval history: patient is here [...] neuropathy No diarrhea or constipation. PHYSICAL EXAM: [facility] 11/18/2012 General: NAD, ECOG PS:1 No paleness or jaundice lymph system: No lymphadenopathy in the neck. SC or axillary area BL. Heart: S1, S2, RRR Lung: CTA (BL), no wheezing or crackles Abd: No tenderness, or distension. Soft Extremities: No pitting edema, or cyanosis DATA CBC, CMP, TSH were [facility]. PET scan report and images were reviewed in [facility]. Results werediscussed with patient and radiation oncology [...] FACP CC: Jose Parra documented in this encounterWooster Community Hospital12-08-2022 Instructions* Patient Instructions* Juan Francisco Hutchinson APRN.PEDRO - 01/25/2022 2:57 PM EST JORGE GarsiaC Department of Palliative and Supportive Care Palliative Care - Specialty services in symptom management and support For questions or prescription refills, call: [phone] Saturday - Saturday 9AM-5PM ERVIN Corrales, RN - Senior Technical Architect Please call 3-5 days in advance for medication refills Evenings, Weekends, Holidays: [phone] (ask for palliative medicine on-call provider) For appointments, cancellations or reschedule, call: [phone] documented in this encounterWooster Community Hospital12-08-2022 NoteHNO ID: [id number] Author: Juan Francisco Hutchinson APRN.PEDRO Service: ? [...] for acne. Responsive to Compazine. Modified ESAS (Sidney Symptom Assessment Scale) Information Provided By: Patient [...] was identified. 01/25/2022 by Juan Francisco Hutchinson APRN.INTERNET MARKETING CONSULTANT Urine Screen Lab Results Component Value Date [...] <5 02/24/2021 Methamphetamine Q (more content not included)...[facility] [id number] History of Present illness Narrative* Juan Francisco Hutchinson APRN.INTERNET MARKETING CONSULTANT - 01/25/2022 10:55 AM EST PALLIATIVE MEDICINE [...] for acne. Responsive to Compazine. Modified ESAS (Sidney Symptom Assessment Scale) Information Provided By: Patient [...] was identified. 01/25/2022 by Juan Francisco Hutchinson APRN.INTERNET MARKETING CONSULTANT Urine Screen Lab Results Component Value Date [...] Urine pH, Pain Ocasio 6.3 02/24/2021 Specific [place],Ur Pain Ocasio 1.012 02/24/2021 Oxidants,Ur 46 02/24/2021 [...] 25, 2022 10:55 AM documented in this encounterWooster Community Hospital12-05-2022 Miscellaneous Notes* Telephone Encounter - Kylie [...] advise. Kylie Mosher RN documented in this encounterWooster Community Hospital11-30-2022 Miscellaneous Notes* Telephone Encounter - Gunjan Joya LPN - 01/17/2022 9:10 AM EST Spoke with patient, rescheduled appt for tomorrow documented in this encounterWooster Community Hospital11-29-2022 Miscellaneous Notes* Telephone Encounter - Juan Francisco Hutchinson APRN.INTERNET MARKETING CONSULTANT - 01/16/2022 2:34 PM EST PDMP website checked and validated. All prescriptions have been APPROPRIATELY filled. No suspiciousactivity was identified. 01/16/2022 by Juan Francisco Hutchinson APRN.INTERNET MARKETING CONSULTANT Rx sent Juan Francisco Hutchinson APRN.INTERNET MARKETING CONSULTANT * Telephone Encounter - Kristina Pete RN - 01/16/2022 12:48 PM EST Patient phones requesting refills as follows: Requested Prescriptions Pending Prescriptions Disp Refills oxyCODONE IR (ROXICODONE) 10 mg tab 120 tablet 0 Sig: Take 1 tablet by mouth every 4 hours as needed (moderate-severe cancer pain) for up to 30 days. Please review and advise. Kristina Pete RN documented in this encounterW[facility]11-15-2022 Miscellaneous Notes* Telephone Encounter - Caro Srinivasan RN - 01/02/2022 3:41 PM [facility] Coord[facility] FOLLOW-UP NOTE Patient identified by name and date of . YES Spoke to voicemail-full so unable to leave message x2 Summary: (Reason for follow-up) Chest tightness Pulmonary f/u needed Echocardiogram needed Concerns: (New Barriers to care) Caro Srinivasan RN January 02, 2022 documented in this encounterWooster [facility] Hospital11-09-2022 History of Present illness Narrative* Sylvia Mancilla, LORY.INTERNET MARKETING CONSULTANT - 12/27/2021 9:30 AM EST Oncology Progress [...] Brentuximab Vedotin (Adcetris) Started 02/04/2014 stopped to Nivolumab (Opdivo) started Nov 18 2014 stopped [...] pneumonitis She saw Dr. Alejandro sarmiento at [facility] for 2nd opinion cell([phone]) She agreed with out plan and recommended [...] the spleen, liver and lymph node at [facility] Interval history: Ms. Potts presents [...] and TSH, sed rate were reviewed in [facility]. ASSESSMENT AND PLAN: 1. Relapsed Hodgkin lymphoma [...] visit. Sylvia Mancilla APRN.CNP Hematology/Oncology Janae Ortiz/ [facility] [phone] CC: Jose Parra documented in this encounterWooster [facility] Hospital10-31-2022 Miscellaneous Notes* Telephone Encounter - Cheryl [...] advise. Kylie Mosher RN documented in this encounterWooster [facility] Hospital10-20-2022 Instructions* Patient Instructions* Nova Leija APRN.CNP - 12/07/2021 9:25 AM EDT Acne [...] under eye as needed documented in this encounterWooster [facility] Hospital10-20-2022 History of Present illness Narrative* Nova Leija APRN.PEDRO - 12/07/2021 9:15 AM EDT SKIN EXAM [...] C No.3 (B COMPLEX PLUS VITAMIN C) 49-17-03-5-300 mg cap Take 1 tablet by mouth [...] patient is seen and examined by Nova Leija CNP and the following reflects his/her service. Scribed by Marilyn Allen LPN I agree with the Chief Complaint, ROS, and Past Histories independently gathered by the clinical retail support specialist and the remaining scribed note accurately describes my personal service to the patient. Nova Leija APRN.PEDRO December 07, 2021 9:39 AM I spent a total of 25 minutes on the date of the service which included [id number] patient care, completing clinical documentation, performing a medically appropriate examination, counseling and educating the patient/family/caregiver, and ordering medications, tests, or procedures. documented in this encounterWooster [facility] Hospital09-28-2022 History of Present illness Narrative* Cyn [...] pneumonitis She saw Dr. Alejandro sarmiento at [facility] for 2nd opinion cell([phone]) She agreed with out plan and recommended [...] the spleen, liver and lymph node at [facility] Interval history: Patient is here [...] and TSH, sed rate were reviewed in [facility]. ASSESSMENT AND PLAN: 1. Relapsed Hodgkin lymphoma [...] FACP CC: Jose Parra documented in this encounterWooster [facility] Hospital09-26-2022 Miscellaneous Notes* Telephone Encounter - Jeny Nava RN - 11/13/2021 8:35 AM EDT I have pended a CBC for Celso that she requested with her other labs. Please sign if agreeable. Thank you, MAE Valentin, [facility] documented in this encounterWooster [facility] Hospital09-08-2022 NoteHNO ID: [id number] Author: Juan Francisco Hutchinson APRN.INTERNET MARKETING CONSULTANT Service: ? Author Type: Nurse Practitioner Type: [...] care with [facility] visit 08/02. Referred to [facility] due to proximity of home. Did not [...] upcoming PET scan will show. Modified ESAS (Sidney Symptom Assessment Scale) Information Provided By: Patient [...] Lab Results Component Value (more content not included)...[facility] [id number] History of Present illness Narrative* Juan Francisco [...] upcoming PET scan will show. Modified ESAS (Sidney Symptom Assessment Scale) Information Provided By: Patient [...] was identified. 10/26/2021 by Juan Francisco Hutchinson APRN.INTERNET MARKETING CONSULTANT Urine Screen Lab Results Component Value Date [...] Urine pH, Pain Ocasio 6.3 02/24/2021 Specific [place],Ur Pain Ocasio 1.012 02/24/2021 Oxidants,Ur 46 02/24/2021 [...] 26, 2021 11:07 AM documented in this encounterWooster [facility] Hospital09-07-2022 History of Present illness Narrative* Sylvia [...] pneumonitis She saw Dr. Alejandro sarmiento at [facility] for 2nd opinion cell([phone]) She agreed with out plan and recommended [...] the spleen, liver and lymph node at [facility] Interval history: Ms. Potts is here for follow up and C#31 pembro. Patient went [facility] 09/20/21 with fever, chills,fatigue. Tested positive [...] and TSH, sed rate were reviewed in [facility]. ASSESSMENT AND PLAN: 1. Relapsed Hodgkin lymphoma [...] the visit. Sylvia Mancilla APRN.CNP Hematology/Oncology J[facility]/ [facility] [phone] CC: Jose Parra documented in this encounterWooster Community Hospital09-07-2022 Instructions* Patient Instructions* Sylvia Mancilla APRN.CNP - 10/25/2021 10:00 AM EDT Call the office with questions or concerns. Go to ER with any signs of infection like fever of 100.4 or higher. documented in this encounterWooster [facility] Hospital08-29-2022 Miscellaneous Notes* Telephone Encounter - Juan [...] advise. Kristina Pete RN documented in this encounterWooster Community Hospital08-15-2022 Miscellaneous Notes* Telephone Encounter - Joanne [...] DAILY Elaine Enriquez LPN documented in this encounterWooster [facility] Hospital08-05-2022 Miscellaneous Notes* Telephone Encounter - Caro [...] Patient reminded of her follow-up appointment with [facility] provider, 10/04/21 Keytruda infusion and then 10/25 OV E Gross and infusion: Yes Next Senior Technical Architect outreach with patient scheduled? No, appointment made PATIENT EDUCATION/REINFORCEMENT Patient has information of when to seek Medical Attention? YES Patient has information of after hours and weekend phone number? 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 Scribed by Janice Miller MA I agree with the Chief Complaint, ROS, and Past Histories independently gathered by the clinical retail support specialist and the remaining scribed note accurately describes my personal service to the patient. Nova Leija APRN.CNP September 05, 2021 5:59 PM documented in this encounterWooster Community Hospital07-18-2022 Miscellaneous Notes* Telephone Encounter - Flori Ford RN - 09/04/2021 11:32 AM EDT Pall med nurse call to patient and inquired if she was with [facility] and she reports her first [...] advise. Flori Ford RN documented in this encounterWooster [facility] Hospital06-28-2022 Miscellaneous Notes* Telephone Encounter - Juan [...] is not able to start care with [facility] until middle of August. Will need refills until she establishes. Patient phones requesting refills as follows: Pending Prescriptions Disp Refills OXYCODONE 10 MG TABLET 120 tablet 0 Sig: Take 1 tablet by mouth every 4 hours as needed (moderate-severe cancer pain) for up to 30 days. SHELBIE Class: C-II KAREN: No Please review and advise. Kristina Pete RN documented in this encounterWooster [facility] Hospital06-16-2022 Miscellaneous Notes* Telephone Encounter - Kristina Pete RN - 08/03/2021 8:21 AM EDT Patient has requested palliative services closer to her home referral faxed to [facility] palliative care. 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 patient agrees to proceed. 2 areas cleansed with alcohol. 0.4 ml of ILK 10 injected. Patient tolerated well. Follow up annually and as needed. The patient is seen and examined by Nova Leija CNP and the following reflects his/her service. Scribed by Zoila Pedersen RN / Janice Miller MA I agree with the Chief Complaint, ROS, and Past Histories independently gathered by the clinical retail support specialist and the remaining scribed note accurately describes my personal service to the patient. Nova Leija APRN.CNP July 28, 2021 8:03 AM documented in this encounterWooster [facility] Hospital05-24-2022 Miscellaneous Notes* Telephone Encounter - Juan [...] KAREN: No Please review and advise. Flori Logan, RN documented in this encounterWooster [facility] Hospital05-13-2022 Miscellaneous Notes* Telephone Encounter - Joanne [...] No Elaine Enriquez LPN documented in this encounterWooster [facility] Hospital04-28-2022 Miscellaneous Notes* Telephone Encounter - Juan Francisco Hutchinson APRN.INTERNET MARKETING CONSULTANT - 06/15/2021 5:05 PM EDT PDMP website checked and validated. All prescriptions have been APPROPRIATELY filled. No suspiciousactivity was identified. 06/15/2021 by Juan Francisco Hutchinson APRN.INTERNET MARKETING CONSULTANT Rx sent Juan Francisco Hutchinson APRN.INTERNET MARKETING CONSULTANT * Telephone Encounter - Kristina Pete RN - 06/15/2021 4:43 PM EDT Patient phones requesting refills as follows: Pending Prescriptions Disp Refills OXYCODONE 10 MG TABLET 120 tablet 0 Sig: Take 1 tablet by mouth every 4 hours as needed (moderate-severe cancer pain) for up to 30 days. SHELBIE Class: C-II KAREN: No Please review and advise. Kristina Pete RN documented in this encounterWooster Community Hospital04-27-2022 History of Present illness Narrative* Cyn [...] pneumonitis She saw Dr. Alejandro sarmiento at [facility] for 2nd opinion cell([phone]) She agreed with out plan and recommended [...] and TSH, sed rate were reviewed in [facility]. ASSESSMENT AND PLAN: 1. Relapsed Hodgkin lymphoma [...] M.D. Dr. Gurpreet Parra documented in this encounterWooster [facility] Hospital04-01-2022 Miscellaneous Notes* Telephone Encounter - Marilyn Hughes RN - 05/19/2021 9:09 AM EDT Pt with c/o sinus congestion, headache, cough, fatigue, T Max 101.3 last evening, then 'fever broke' afebrile this am. Dr Raimres notified and Z-pack sent to preferred pharmacy. Pt aware to call for worsening symptoms or temp >100.4 . Verbalized acknowledgement. Marilyn Hughes RN documented in this encounterWooster [facility] Hospital03-30-2022 Miscellaneous Notes* Telephone Encounter - RHETT Mesa - 05/17/2021 2:31 PM EDT SOCIAL WORK FOLLOW UP NOTE: [facility] Date of service:05/17/2021 Celso Potts is [...] resource F/U APPOINTMENT: PRN RHETT Mesa-S Senior Refrigerated Cargo Clerk [facility] Oncology documented in this [facility]03-30-2022 Miscellaneous Notes* Telephone Encounter - RHETT Mesa - 05/17/2021 1:58 PM EDT SOCIAL WORK FOLLOW UP NOTE: [facility] Date of service:05/17/2021 Celso Potts is being seen for a follow up social work visit. Today's visit includes: patient TOPICS ADDRESSED: mental health needs Advised patient that SRINIVASAN Garsia from [facility] asked me to give patient local behavioral health resources. I forwarded this request to MATILDE Spear, who is a behavior health social insurance analyst and is expert in these types of resources. I advised patient that Katarzyna should be reaching out to her. PLAN: Continue follow up as needed F/U APPOINTMENT: PRN RHETT Mesa-S Senior Refrigerated Cargo Clerk [facility] Oncology documented in this encounterWooster Community Hospital03-30-2022 Instructions* Patient Instructions* Juan Francisco Hutchinson APRN.CNP - 05/17/2021 11:35 AM EDT Juan Francisco Hutchinson NP-C Department of Palliative and Supportive Care Palliative Care - Specialty services in symptom management and support For questions or prescription refills, call: Saturday - Saturday 9AM-5PM Chantal Newberry RN, BSN - Senior Technical Architect [phone] Please call 5 days in advance Evenings, Weekends, Holidays: [phone] (ask for palliative medicine on-call provider) For appointments, cancellations or reschedule, call: [phone] documented in this encounterWooster Community Hospital03-30-2022 History of Present illness Narrative* Juan [...] (on AC). She is transferring care to [facility] for palliative care. She has previously followed with Dr. Mosquera (last appt 04/12/2020) for management of anxiety, depression, neuropathy, and pain. Clover Stewart presents today alone. Reports feeling fairly well. Recently returned from vacation with friends in [place] where she had a great time although [...] Dr. Mosquera at last visit. Modified ESAS (Sidney Symptom Assessment Scale) Information Provided By: Patient [...] was identified. 05/17/2021 by Juan Francisco Hutchinson APRN.INTERNET MARKETING CONSULTANT Urine Screen Lab Results Component Value Date [...] Urine pH, Pain Ocasio 6.3 02/24/2021 Specific [place],Ur Pain Ocasio 1.012 02/24/2021 Oxidants,Ur 46 02/24/2021 Specimen Quality, Ur Pain [place]io Specimen quality results within acceptable limits. 05/03/2014 [...] 17, 2021 7:01 AM documented in this encounterWooster [facility] Hospital08-31-2021 History of Past illness Narrative* Problem Noted Date Diagnosed Date Resolved Date Radiation induced neuropathy 10/18/2020 03/07/2023 Menorrhagia with regular cycle 03/15/2017 01/01/2018 Overview: Added automatically from request for surgery [id number] History of pulmonary embolism 04/25/2016 01/01/2018 Neoplastic [...] FOLLOW-UP 10/27/2012 Overview: 32 yo female from [place], [place]. Family involved with care, at bedside. plan to discharge patient home - will arrange with case management for post op care as needed - follow up in OPD in 7-10 days Post-op pain 10/27/2012 12/26/2015 Overview: currently well controlled with BOX FEEDER. will start PO pain meds today 10/27. tolerating percocet, pain relatively well controlled. Hodgkin's disease with nodular sclerosis 05/27/2012 12/26/2015 Overview: Oncology history (per Dr. 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 Hodgkin's disease, unspecified 02/05/2012 05/11/2014 Vaginal bleeding 12/26/2015 Overview: --likely from thrombocytopenia. No menses in prior 8 months. Scant amount reported on 03/29 and 03/30, now resolved --monitor bleeding by counting pads --should f/u with her MODELING DIRECTOR provider after BMT Premature menopause 12/26/19 16 Postmenopausal atrophic vaginitis 12/26/2015 Dyspareunia 12/26/2015 documented as of this encounter (statuses as of 03/28/2023) [facility] of Past illness Narrative* Problem Noted Date Diagnosed Date Resolved Date Radiation induced neuropathy 10/18/2020 03/07/2023 Menorrhagia with regular cycle 03/15/2017 01/01/2018 Overview: Added automatically from request for surgery [id number] History of pulmonary embolism 04/25/2016 01/01/2018 Neoplastic [...] FOLLOW-UP 10/27/2012 Overview: 32 yo female from [place]. Family involved with care, at bedside. plan to discharge patient home - will arrange with case management for post op care as needed - follow up in OPD in 7-10 days Post-op pain 10/27/2012 12/26/2015 Overview: currently well controlled with BOX FEEDER. will start PO pain meds today 10/27. tolerating percocet, pain relatively well controlled. Hodgkin's disease with nodular sclerosis 05/27/2012 12/26/2015 Overview: Oncology history (per Dr. 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 Hodgkin's disease, unspecified 02/05/2012 05/11/2014 Vaginal bleeding 12/26/2015 Overview: --likely from thrombocytopenia. No menses in prior 8 months. Scant amount reported on 03/29 and 03/30, now resolved --monitor bleeding by counting pads --should f/u with her MODELING DIRECTOR provider after BMT Premature menopause 12/26/19 16 Postmenopausal atrophic vaginitis 12/26/2015 Dyspareunia 12/26/2015 documented as of this encounter (statuses as of 03/28/2023) [facility] of Past illness Narrative* Problem Noted Date Diagnosed Date Resolved Date Radiation induced neuropathy 10/18/2020 03/07/2023 Menorrhagia with regular cycle 03/15/2017 01/01/2018 Overview: Added automatically from request for surgery [id number] History of pulmonary embolism 04/25/2016 01/01/2018 Neoplastic [...] FOLLOW-UP 10/27/2012 Overview: 32 yo female from [place]. Family involved with care, at bedside. plan to discharge patient home - will arrange with case management for post op care as needed - follow up in OPD in 7-10 days Post-op pain 10/27/2012 12/26/2015 Overview: currently well controlled with BOX FEEDER. will start PO pain meds today 10/27. tolerating percocet, pain relatively well controlled. Hodgkin's disease with nodular sclerosis 05/27/2012 12/26/2015 Overview: Oncology history (per Dr. 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 Hodgkin's disease, unspecified 02/05/2012 05/11/2014 Vaginal bleeding 12/26/2015 Overview: --likely from thrombocytopenia. No menses in prior 8 months. Scant amount reported on 03/29 and 03/30, now resolved --monitor bleeding by counting pads --should f/u with her MODELING DIRECTOR provider after BMT Premature menopause 12/26/19 16 Postmenopausal atrophic vaginitis 12/26/2015 Dyspareunia 12/26/2015 documented as of this encounter (statuses as of 03/28/2023) [facility] of Past illness Narrative* Problem Noted Date Diagnosed Date Resolved Date Radiation induced neuropathy 10/18/2020 03/07/2023 Menorrhagia with regular cycle 03/15/2017 01/01/2018 Overview: Added automatically from request for surgery [id number] History of pulmonary embolism 04/25/2016 01/01/2018 Neoplastic [...] FOLLOW-UP 10/27/2012 Overview: 32 yo female from [place]. Family involved with care, at bedside. plan to discharge patient home - will arrange with case management for post op care as needed - follow up in OPD in 7-10 days Post-op pain 10/27/2012 12/26/2015 Overview: currently well controlled with BOX FEEDER. will start PO pain meds today 10/27. tolerating percocet, pain relatively well controlled. Hodgkin's disease with nodular sclerosis 05/27/2012 12/26/2015 Overview: Oncology history (per Dr. 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 Hodgkin's disease, unspecified 02/05/2012 05/11/2014 Vaginal bleeding 12/26/2015 Overview: --likely from thrombocytopenia. No menses in prior 8 months. Scant amount reported on 03/29 and 03/30, now resolved --monitor bleeding by counting pads --should f/u with her MODELING DIRECTOR provider after BMT Premature menopause 12/26/19 16 Postmenopausal atrophic vaginitis 12/26/2015 Dyspareunia 12/26/2015 documented as of this encounter (statuses as of 04/01/2023) [facility] of Past illness Narrative* Problem Noted Date Diagnosed Date Resolved Date Radiation induced neuropathy 10/18/2020 03/07/2023 Menorrhagia with regular cycle 03/15/2017 01/01/2018 Overview: Added automatically from request for surgery [id number] History of pulmonary embolism 04/25/2016 01/01/2018 Neoplastic [...] FOLLOW-UP 10/27/2012 Overview: 32 yo female from [place]. Family involved with care, at bedside. plan to discharge patient home - will arrange with case management for post op care as needed - follow up in OPD in 7-10 days Post-op pain 10/27/2012 12/26/2015 Overview: currently well controlled with BOX FEEDER. will start PO pain meds today 10/27. tolerating percocet, pain relatively well controlled. Hodgkin's disease with nodular sclerosis 05/27/2012 12/26/2015 Overview: Oncology history (per Dr. 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 Hodgkin's disease, unspecified 02/05/2012 05/11/2014 Vaginal bleeding 12/26/2015 Overview: --likely from thrombocytopenia. No menses in prior 8 months. Scant amount reported on 03/29 and 03/30, now resolved --monitor bleeding by counting pads --should f/u with her MODELING DIRECTOR provider after BMT Premature menopause 12/26/19 16 Postmenopausal atrophic vaginitis 12/26/2015 Dyspareunia 12/26/2015 documented as of this encounter (statuses as of 04/09/2023) [facility] of Past illness Narrative* Problem Noted Date Diagnosed Date Resolved Date Radiation induced neuropathy 10/18/2020 03/07/2023 Menorrhagia with regular cycle 03/15/2017 01/01/2018 Overview: Added automatically from request for surgery [id number] History of pulmonary embolism 04/25/2016 01/01/2018 Neoplastic [...] FOLLOW-UP 10/27/2012 Overview: 32 yo female from [place]. Family involved with care, at bedside. plan to discharge patient home - will arrange with case management for post op care as needed - follow up in OPD in 7-10 days Post-op pain 10/27/2012 12/26/2015 Overview: currently well controlled with BOX FEEDER. will start PO pain meds today 10/27. tolerating percocet, pain relatively well controlled. Hodgkin's disease with nodular sclerosis 05/27/2012 12/26/2015 Overview: Oncology history (per Dr. 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 Hodgkin's disease, unspecified 02/05/2012 05/11/2014 Vaginal bleeding 12/26/2015 Overview: --likely from thrombocytopenia. No menses in prior 8 months. Scant amount reported on 03/29 and 03/30, now resolved --monitor bleeding by counting pads --should f/u with her MODELING DIRECTOR provider after BMT Premature menopause 12/26/19 18 Postmenopausal atrophic vaginitis 12/26/2015 Dyspareunia 12/26/2015 documented as of this encounter (statuses as of 04/17/2023) [facility]08-[facility]2021 History of Past illness Narrative* Problem Noted Date Diagnosed Date Resolved Date Radiation induced neuropathy 10/18/2020 03/07/2023 Menorrhagia with regular cycle 03/15/2017 01/01/2018 Overview: Added automatically from request for surgery [id number] History of pulmonary embolism 04/25/2016 01/01/2018 Neoplastic [...] FOLLOW-UP 10/27/2012 Overview: 32 yo female from [place]. Family involved with care, at bedside. plan to discharge patient home - will arrange with case management for post op care as needed - follow up in OPD in 7-10 days Post-op pain 10/27/2012 12/26/2015 Overview: currently well controlled with BOX FEEDER. will start PO pain meds today 10/27. tolerating percocet, pain relatively well controlled. Hodgkin's disease with nodular sclerosis 05/27/2012 12/26/2015 Overview: Oncology history (per Dr. 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 Hodgkin's disease, unspecified 02/05/2012 05/11/2014 Vaginal bleeding 12/26/2015 Overview: --likely from thrombocytopenia. No menses in prior 8 months. Scant amount reported on 03/29 and 03/30, now resolved --monitor bleeding by counting pads --should f/u with her MODELING DIRECTOR provider after BMT Premature menopause 12/26/19 16 Postmenopausal atrophic vaginitis 12/26/2015 Dyspareunia 12/26/2015 documented as of this encounter (statuses as of 04/19/2023) [facility]21 History of Past illness Narrative* Problem Noted Date Diagnosed Date Resolved Date Radiation induced neuropathy 10/18/2020 03/07/2023 Menorrhagia with regular cycle 03/15/2017 01/01/2018 Overview: Added automatically from request for surgery [id number] History of pulmonary embolism 04/25/2016 01/01/2018 Neoplastic [...] FOLLOW-UP 10/27/2012 Overview: 32 yo female from [place]. Family involved with care, at bedside. plan to discharge patient home - will arrange with case management for post op care as needed - follow up in OPD in 7-10 days Post-op pain 10/27/2012 12/26/2015 Overview: currently well controlled with BOX FEEDER. will start PO pain meds today 10/27. tolerating percocet, pain relatively well controlled. Hodgkin's disease with nodular sclerosis 05/27/2012 12/26/2015 Overview: Oncology history (per Dr. 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 Hodgkin's disease, unspecified 02/05/2012 05/11/2014 Vaginal bleeding 12/26/2015 Overview: --likely from thrombocytopenia. No menses in prior 8 months. Scant amount reported on 03/29 and 03/30, now resolved --monitor bleeding by counting pads --should f/u with her MODELING DIRECTOR provider after BMT Premature menopause 12/26/19 16 Postmenopausal atrophic vaginitis 12/26/2015 Dyspareunia 12/26/2015 documented as of this encounter (statuses as of 04/20/2023) [facility] History of Past illness Narrative* Problem Noted Date Diagnosed Date Resolved Date Radiation induced neuropathy 10/18/2020 03/07/2023 Menorrhagia with regular cycle 03/15/2017 01/01/2018 Overview: Added automatically from request for surgery [id number] History of pulmonary embolism 04/25/2016 01/01/2018 Neoplastic [...] FOLLOW-UP 10/27/2012 Overview: 32 yo female from [place]. Family involved with care, at bedside. plan to discharge patient home - will arrange with case management for post op care as needed - follow up in OPD in 7-10 days Post-op pain 10/27/2012 12/26/2015 Overview: currently well controlled with BOX FEEDER. will start PO pain meds today 10/27. tolerating percocet, pain relatively well controlled. Hodgkin's disease with nodular sclerosis 05/27/2012 12/26/2015 Overview: Oncology history (per Dr. 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 Hodgkin's disease, unspecified 02/05/2012 05/11/2014 Vaginal bleeding 12/26/2015 Overview: --likely from thrombocytopenia. No menses in prior 8 months. Scant amount reported on 03/29 and 03/30, now resolved --monitor bleeding by counting pads --should f/u with her MODELING DIRECTOR provider after BMT Premature menopause 12/26/19 16 Postmenopausal atrophic vaginitis 12/26/2015 Dyspareunia 12/26/2015 documented as of this encounter (statuses as of 05/07/2023) [facility]21 History of Past illness Narrative* Problem Noted Date Diagnosed Date Resolved Date Radiation induced neuropathy 10/18/2020 03/07/2023 Menorrhagia with regular cycle 03/15/2017 01/01/2018 Overview: Added automatically from request for surgery [id number] History of pulmonary embolism 04/25/2016 01/01/2018 Neoplastic [...] FOLLOW-UP 10/27/2012 Overview: 32 yo female from [place]. Family involved with care, at bedside. plan to discharge patient home - will arrange with case management for post op care as needed - follow up in OPD in 7-10 days Post-op pain 10/27/2012 12/26/2015 Overview: currently well controlled with BOX FEEDER. will start PO pain meds today 10/27. tolerating percocet, pain relatively well controlled. Hodgkin's disease with nodular sclerosis 05/27/2012 12/26/2015 Overview: Oncology history (per Dr. 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 Hodgkin's disease, unspecified 02/05/2012 05/11/2014 Vaginal bleeding 12/26/2015 Overview: --likely from thrombocytopenia. No menses in prior 8 months. Scant amount reported on 03/29 and 03/30, now resolved --monitor bleeding by counting pads --should f/u with her MODELING DIRECTOR provider after BMT Premature menopause 12/26/19 16 Postmenopausal atrophic vaginitis 12/26/2015 Dyspareunia 12/26/2015 documented as of this encounter (statuses as of 05/10/2023) [facility]21 History of Past illness Narrative* Problem Noted Date Diagnosed Date Resolved Date Radiation induced neuropathy 10/18/2020 03/07/2023 Menorrhagia with regular cycle 03/15/2017 01/01/2018 Overview: Added automatically from request for surgery [id number] History of pulmonary embolism 04/25/2016 01/01/2018 Neoplastic [...] FOLLOW-UP 10/27/2012 Overview: 32 yo female from [place]. Family involved with care, at bedside. plan to discharge patient home - will arrange with case management for post op care as needed - follow up in OPD in 7-10 days Post-op pain 10/27/2012 12/26/2015 Overview: currently well controlled with BOX FEEDER. will start PO pain meds today 10/27. tolerating percocet, pain relatively well controlled. Hodgkin's disease with nodular sclerosis 05/27/2012 12/26/2015 Overview: Oncology history (per Dr. 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 Hodgkin's disease, unspecified 02/05/2012 05/11/2014 Vaginal bleeding 12/26/2015 Overview: --likely from thrombocytopenia. No menses in prior 8 months. Scant amount reported on 03/29 and 03/30, now resolved --monitor bleeding by counting pads --should f/u with her MODELING DIRECTOR provider after BMT Premature menopause 12/26/19 16 Postmenopausal atrophic vaginitis 12/26/2015 Dyspareunia 12/26/2015 documented as of this encounter (statuses as of 05/13/2023) [facility] History of Past illness Narrative* Problem Noted Date Diagnosed Date Resolved Date Radiation induced neuropathy 10/18/2020 03/07/2023 Menorrhagia with regular cycle 03/15/2017 01/01/2018 Overview: Added automatically from request for surgery [id number] History of pulmonary embolism 04/25/2016 01/01/2018 Neoplastic [...] FOLLOW-UP 10/27/2012 Overview: 32 yo female from [place]. Family involved with care, at bedside. plan to discharge patient home - will arrange with case management for post op care as needed - follow up in OPD in 7-10 days Post-op pain 10/27/2012 12/26/2015 Overview: currently well controlled with BOX FEEDER. will start PO pain meds today 10/27. tolerating percocet, pain relatively well controlled. Hodgkin's disease with nodular sclerosis 05/27/2012 12/26/2015 Overview: Oncology history (per Dr. 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 Hodgkin's disease, unspecified 02/05/2012 05/11/2014 Vaginal bleeding 12/26/2015 Overview: --likely from thrombocytopenia. No menses in prior 8 months. Scant amount reported on 03/29 and 03/30, now resolved --monitor bleeding by counting pads --should f/u with her MODELING DIRECTOR provider after BMT Premature menopause 12/26/19 16 Postmenopausal atrophic vaginitis 12/26/2015 Dyspareunia 12/26/2015 documented as of this encounter (statuses as of 05/15/2023) [facility] History of Past illness Narrative* Problem Noted Date Diagnosed Date Resolved Date Radiation induced neuropathy 10/18/2020 03/07/2023 Menorrhagia with regular cycle 03/15/2017 01/01/2018 Overview: Added automatically from request for surgery [id number] History of pulmonary embolism 04/25/2016 01/01/2018 Neoplastic [...] FOLLOW-UP 10/27/2012 Overview: 32 yo female from [place]. Family involved with care, at bedside. plan to discharge patient home - will arrange with case management for post op care as needed - follow up in OPD in 7-10 days Post-op pain 10/27/2012 12/26/2015 Overview: currently well controlled with BOX FEEDER. will start PO pain meds today 10/27. tolerating percocet, pain relatively well controlled. Hodgkin's disease with nodular sclerosis 05/27/2012 12/26/2015 Overview: Oncology history (per Dr. 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 Hodgkin's disease, unspecified 02/05/2012 05/11/2014 Vaginal bleeding 12/26/2015 Overview: --likely from thrombocytopenia. No menses in prior 8 months. Scant amount reported on 03/29 and 03/30, now resolved --monitor bleeding by counting pads --should f/u with her MODELING DIRECTOR provider after BMT Premature menopause 12/26/19 16 Postmenopausal atrophic vaginitis 12/26/2015 Dyspareunia 12/26/2015 documented as of this encounter (statuses as of 05/21/2023) [facility] History of Past illness Narrative* Problem Noted Date Diagnosed Date Resolved Date Radiation induced neuropathy 10/18/2020 03/07/2023 Menorrhagia with regular cycle 03/15/2017 01/01/2018 Overview: Added automatically from request for surgery [id number] History of pulmonary embolism 04/25/2016 01/01/2018 Neoplastic [...] FOLLOW-UP 10/27/2012 Overview: 32 yo female from [place]. Family involved with care, at bedside. plan to discharge patient home - will arrange with case management for post op care as needed - follow up in OPD in 7-10 days Post-op pain 10/27/2012 12/26/2015 Overview: currently well controlled with BOX FEEDER. will start PO pain meds today 10/27. tolerating percocet, pain relatively well controlled. Hodgkin's disease with nodular sclerosis 05/27/2012 12/26/2015 Overview: Oncology history (per Dr. 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 Hodgkin's disease, unspecified 02/05/2012 05/11/2014 Vaginal bleeding 12/26/2015 Overview: --likely from thrombocytopenia. No menses in prior 8 months. Scant amount reported on 03/29 and 03/30, now resolved --monitor bleeding by counting pads --should f/u with her MODELING DIRECTOR provider after BMT Premature menopause 12/26/19 16 Postmenopausal atrophic vaginitis 12/26/2015 Dyspareunia 12/26/2015 documented as of this encounter (statuses as of 05/22/2023) [facility] History of Past illness Narrative* Problem Noted Date Diagnosed Date Resolved Date Radiation induced neuropathy 10/18/2020 03/07/2023 Menorrhagia with regular cycle 03/15/2017 01/01/2018 Overview: Added automatically from request for surgery [id number] History of pulmonary embolism 04/25/2016 01/01/2018 Neoplastic [...] FOLLOW-UP 10/27/2012 Overview: 32 yo female from [place]. Family involved with care, at bedside. plan to discharge patient home - will arrange with case management for post op care as needed - follow up in OPD in 7-10 days Post-op pain 10/27/2012 12/26/2015 Overview: currently well controlled with BOX FEEDER. will start PO pain meds today 10/27. tolerating percocet, pain relatively well controlled. Hodgkin's disease with nodular sclerosis 05/27/2012 12/26/2015 Overview: Oncology history (per Dr. 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 Hodgkin's disease, unspecified 02/05/2012 05/11/2014 Vaginal bleeding 12/26/2015 Overview: --likely from thrombocytopenia. No menses in prior 8 months. Scant amount reported on 03/29 and 03/30, now resolved --monitor bleeding by counting pads --should f/u with her MODELING DIRECTOR provider after BMT Premature menopause 12/26/19 16 Postmenopausal atrophic vaginitis 12/26/2015 Dyspareunia 12/26/2015 documented as of this encounter (statuses as of 05/30/2023) [facility] History of Past illness Narrative* Problem Noted Date Diagnosed Date Resolved Date Radiation induced neuropathy 10/18/2020 03/07/2023 Menorrhagia with regular cycle 03/15/2017 01/01/2018 Overview: Added automatically from request for surgery [id number] History of pulmonary embolism 04/25/2016 01/01/2018 Neoplastic [...] FOLLOW-UP 10/27/2012 Overview: 32 yo female from [place]. Family involved with care, at bedside. plan to discharge patient home - will arrange with case management for post op care as needed - follow up in OPD in 7-10 days Post-op pain 10/27/2012 12/26/2015 Overview: currently well controlled with BOX FEEDER. will start PO pain meds today 10/27. tolerating percocet, pain relatively well controlled. Hodgkin's disease with nodular sclerosis 05/27/2012 12/26/2015 Overview: Oncology history (per Dr. 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 Hodgkin's disease, unspecified 02/05/2012 05/11/2014 Vaginal bleeding 12/26/2015 Overview: --likely from thrombocytopenia. No menses in prior 8 months. Scant amount reported on 03/29 and 03/30, now resolved --monitor bleeding by counting pads --should f/u with her MODELING DIRECTOR provider after BMT Premature menopause 12/26/19 16 Postmenopausal atrophic vaginitis 12/26/2015 Dyspareunia 12/26/2015 documented as of this encounter (statuses as of 05/31/2023) [facility] History of Past illness Narrative* Problem Noted Date Diagnosed Date Resolved Date Radiation induced neuropathy 10/18/2020 03/07/2023 Menorrhagia with regular cycle 03/15/2017 01/01/2018 Overview: Added automatically from request for surgery [id number] History of pulmonary embolism 04/25/2016 01/01/2018 Neoplastic [...] FOLLOW-UP 10/27/2012 Overview: 32 yo female from [place]. Family involved with care, at bedside. plan to discharge patient home - will arrange with case management for post op care as needed - follow up in OPD in 7-10 days Post-op pain 10/27/2012 12/26/2015 Overview: currently well controlled with BOX FEEDER. will start PO pain meds today 10/27. tolerating percocet, pain relatively well controlled. Hodgkin's disease with nodular sclerosis 05/27/2012 12/26/2015 Overview: Oncology history (per Dr. 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 Hodgkin's disease, unspecified 02/05/2012 05/11/2014 Vaginal bleeding 12/26/2015 Overview: --likely from thrombocytopenia. No menses in prior 8 months. Scant amount reported on 03/29 and 03/30, now resolved --monitor bleeding by counting pads --should f/u with her MODELING DIRECTOR provider after BMT Premature menopause 12/26/19 16 Postmenopausal atrophic vaginitis 12/26/2015 Dyspareunia 12/26/2015 documented as of this encounter (statuses as of 05/31/2023) [facility] History of Past illness Narrative* Problem Noted Date Diagnosed Date Resolved Date Radiation induced neuropathy 10/18/2020 03/07/2023 Menorrhagia with regular cycle 03/15/2017 01/01/2018 Overview: Added automatically from request for surgery [id number] History of pulmonary embolism 04/25/2016 01/01/2018 Neoplastic [...] FOLLOW-UP 10/27/2012 Overview: 32 yo female from [place]. Family involved with care, at bedside. plan to discharge patient home - will arrange with case management for post op care as needed - follow up in OPD in 7-10 days Post-op pain 10/27/2012 12/26/2015 Overview: currently well controlled with BOX FE[employer]ER. will start PO pain meds today 10/27. tolerating percocet, pain relatively well controlled. Hodgkin's disease with nodular sclerosis 05/27/2012 12/26/2015 Overview: Oncology history (per Dr. 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 Hodgkin's disease, unspecified 02/05/2012 05/11/2014 Vaginal bleeding 12/26/2015 Overview: --likely from thrombocytopenia. No menses in prior 8 months. Scant amount reported on 03/29 and 03/30, now resolved --monitor bleeding by counting pads --should f/u with her MODELING DIRECTOR provider after BMT Premature menopause 12/26/19 16 Postmenopausal atrophic vaginitis 12/26/2015 Dyspareunia 12/26/2015 documented as of this encounter (statuses as of 06/01/2023) [facility] History of Past illness Narrative* Problem Noted Date Resolved Date Menorrhagia with regular cycle 03/15/2017 1 03/03/2017 Overview: Added automatically from request for surgery [id number] History of pulmonary embolism 04/25/2016 Neoplastic (malignant) [...] FOLLOW-UP 10/27/20122015 Overview: 32 yo female from [place]. Family involved with care, at bedside. plan to discharge patient home - will arrange with case management for post op care as needed - follow up in OPD in 7-10 days Post-op pain 10/27/2012 12/26/2015 Overview: currently well controlled with BOX FEEDER. will start PO pain meds today 10/27. tolerating percocet, pain relatively well controlled. Hodgkin's disease with nodular sclerosis 013 12/26/2015 Overview: Oncology history (per Dr. 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 Hodgkin's disease, unspecified 02/05/2012 0 05/11/2014 Vaginal bleeding 12/26/2015 Overview: --likely from thrombocytopenia. No menses in prior 8 months. Scant amount reported on 03/29 and 03/30, now resolved --monitor bleeding by counting pads --should f/u with her MODELING DIRECTOR provider after BMT Premature menopause 12/26/2015 Postmenopausal atrophic vaginitis 12/26/2015 Dyspareunia 12/26/2015 documented as of this encounter (statuses as of 05/17/2021) [facility] History of Past illness Narrative* Problem Noted Date Resolved Date Menorrhagia with regular cycle 03/15/2017 1 03/03/2017 Overview: Added automatically from request for surgery [id number] History of pulmonary embolism 04/25/2016 Neoplastic (malignant) [...] FOLLOW-UP 10/27/20122015 Overview: 32 yo female from [place]. Family involved with care, at bedside. plan to discharge patient home - will arrange with case management for post op care as needed - follow up in OPD in 7-10 days Post-op pain 10/27/2012 12/26/2015 Overview: currently well controlled with BOX FE[employer]. will start PO pain meds today 10/27. tolerating percocet, pain relatively well controlled. Hodgkin's disease with nodular sclerosis 013 12/26/2015 Overview: Oncology history (per Dr. 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 Hodgkin's disease, unspecified 02/05/2012 0 05/11/2014 Vaginal bleeding 12/26/2015 Overview: --likely from thrombocytopenia. No menses in prior 8 months. Scant amount reported on 03/29 and 03/30, now resolved --monitor bleeding by counting pads --should f/u with her MODELING DIRECTOR provider after BMT Premature menopause 12/26/2015 Postmenopausal atrophic vaginitis 12/26/2015 Dyspareunia 12/26/2015 documented as of this encounter (statuses as of 05/17/2021) [facility] History of Past illness Narrative* Problem Noted Date Resolved Date Menorrhagia with regular cycle 03/15/2017 1 03/03/2017 Overview: Added automatically from request for surgery [id number] History of pulmonary embolism 04/25/2016 Neoplastic (malignant) [...] FOLLOW-UP 10/27/20122015 Overview: 32 yo female from [place]. Family involved with care, at bedside. plan to discharge patient home - will arrange with case management for post op care as needed - follow up in OPD in 7-10 days Post-op pain 10/27/2012 12/26/2015 Overview: currently well controlled with BOX FE[employer]ER. will start PO pain meds today 10/27. tolerating percocet, pain relatively well controlled. Hodgkin's disease with nodular sclerosis 013 12/26/2015 Overview: Oncology history (per Dr. 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 Hodgkin's disease, unspecified 02/05/2012 0 05/11/2014 Vaginal bleeding 12/26/2015 Overview: --likely from thrombocytopenia. No menses in prior 8 months. Scant amount reported on 03/29 and 03/30, now resolved --monitor bleeding by counting pads --should f/u with her MODELING DIRECTOR provider after BMT Premature menopause 12/26/2015 Postmenopausal atrophic vaginitis 12/26/2015 Dyspareunia 12/26/2015 documented as of this encounter (statuses as of 05/17/2021) [facility] History of Past illness Narrative* Problem Noted Date Resolved Date Menorrhagia with regular cycle 03/15/2017 1 03/03/2017 Overview: Added automatically from request for surgery [id number] History of pulmonary embolism 04/25/2016 Neoplastic (malignant) [...] FOLLOW-UP 10/27/20122015 Overview: 32 yo female from [place]. Family involved with care, at bedside. plan to discharge patient home - will arrange with case management for post op care as needed - follow up in OPD in 7-10 days Post-op pain 10/27/2012 12/26/2015 Overview: currently well controlled with BOX FEEDER. will start PO pain meds today 10/27. tolerating percocet, pain relatively well controlled. Hodgkin's disease with nodular sclerosis 013 12/26/2015 Overview: Oncology history (per Dr. 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 Hodgkin's disease, unspecified 02/05/2012 0 05/11/2014 Vaginal bleeding 12/26/2015 Overview: --likely from thrombocytopenia. No menses in prior 8 months. Scant amount reported on 03/29 and 03/30, now resolved --monitor bleeding by counting pads --should f/u with her MODELING DIRECTOR provider after BMT Premature menopause 12/26/2015 Postmenopausal atrophic vaginitis 12/26/2015 Dyspareunia 12/26/2015 documented as of this encounter (statuses as of 05/17/2021) [facility] History of Past illness Narrative* Problem Noted Date Resolved Date Menorrhagia with regular cycle 03/15/2017 1 03/03/2017 Overview: Added automatically from request for surgery [id number] History of pulmonary embolism 04/25/2016 Neoplastic (malignant) [...] FOLLOW-UP 10/27/20122015 Overview: 32 yo female from [place]. Family involved with care, at bedside. plan to discharge patient home - will arrange with case management for post op care as needed - follow up in OPD in 7-10 days Post-op pain 10/27/2012 12/26/2015 Overview: currently well controlled with BOX FEEDER. will start PO pain meds today 10/27. tolerating percocet, pain relatively well controlled. Hodgkin's disease with nodular sclerosis 013 12/26/2015 Overview: Oncology history (per Dr. 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 Hodgkin's disease, unspecified 02/05/2012 0 05/11/2014 Vaginal bleeding 12/26/2015 Overview: --likely from thrombocytopenia. No menses in prior 8 months. Scant amount reported on 03/29 and 03/30, now resolved --monitor bleeding by counting pads --should f/u with her MODELING DIRECTOR provider after BMT Premature menopause 12/26/2015 Postmenopausal atrophic vaginitis 12/26/2015 Dyspareunia 12/26/2015 documented as of this encounter (statuses as of 05/17/2021) [facility] History of Past illness Narrative* Problem Noted Date Resolved Date Menorrhagia with regular cycle 03/15/2017 1 03/03/2017 Overview: Added automatically from request for surgery [id number] History of pulmonary embolism 04/25/2016 Neoplastic (malignant) [...] FOLLOW-UP 10/27/20122015 Overview: 32 yo female from [place]. Family involved with care, at bedside. plan to discharge patient home - will arrange with case management for post op care as needed - follow up in OPD in 7-10 days Post-op pain 10/27/2012 12/26/2015 Overview: currently well controlled with BOX FEEDER. will start PO pain meds today 10/27. tolerating percocet, pain relatively well controlled. Hodgkin's disease with nodular sclerosis 013 12/26/2015 Overview: Oncology history (per Dr. 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 Hodgkin's disease, unspecified 02/05/2012 0 05/11/2014 Vaginal bleeding 12/26/2015 Overview: --likely from thrombocytopenia. No menses in prior 8 months. Scant amount reported on 03/29 and 03/30, now resolved --monitor bleeding by counting pads --should f/u with her MODELING DIRECTOR provider after BMT Premature menopause 12/26/2015 Postmenopausal atrophic vaginitis 12/26/2015 Dyspareunia 12/26/2015 documented as of this encounter (statuses as of 05/17/2021) [facility] History of Past illness Narrative* Problem Noted Date Resolved Date Menorrhagia with regular cycle 03/15/2017 1 03/03/2017 Overview: Added automatically from request for surgery [id number] History of pulmonary embolism 04/25/2016 Neoplastic (malignant) [...] FOLLOW-UP 10/27/20122015 Overview: 32 yo female from [place]. Family involved with care, at bedside. plan to discharge patient home - will arrange with case management for post op care as needed - follow up in OPD in 7-10 days Post-op pain 10/27/2012 12/26/2015 Overview: currently well controlled with BOX FEEDER. will start PO pain meds today 10/27. tolerating percocet, pain relatively well controlled. Hodgkin's disease with nodular sclerosis 013 12/26/2015 Overview: Oncology history (per Dr. 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 Hodgkin's disease, unspecified 02/05/2012 0 05/11/2014 Vaginal bleeding 12/26/2015 Overview: --likely from thrombocytopenia. No menses in prior 8 months. Scant amount reported on 03/29 and 03/30, now resolved --monitor bleeding by counting pads --should f/u with her MODELING DIRECTOR provider after BMT Premature menopause 12/26/2015 Postmenopausal atrophic vaginitis 12/26/2015 Dyspareunia 12/26/2015 documented as of this encounter (statuses as of 05/19/2021) [facility] History of Past illness Narrative* Problem Noted Date Resolved Date Menorrhagia with regular cycle 03/15/2017 1 03/03/2017 Overview: Added automatically from request for surgery [id number] History of pulmonary embolism 04/25/2016 Neoplastic (malignant) [...] FOLLOW-UP 10/27/20122015 Overview: 32 yo female from [place]. Family involved with care, at bedside. plan to discharge patient home - will arrange with case management for post op care as needed - follow up in OPD in 7-10 days Post-op pain 10/27/2012 12/26/2015 Overview: currently well controlled with BOX FEEDER. will start PO pain meds today 10/27. tolerating percocet, pain relatively well controlled. Hodgkin's disease with nodular sclerosis 013 12/26/2015 Overview: Oncology history (per Dr. 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 Hodgkin's disease, unspecified 02/05/2012 0 05/11/2014 Vaginal bleeding 12/26/2015 Overview: --likely from thrombocytopenia. No menses in prior 8 months. Scant amount reported on 03/29 and 03/30, now resolved --monitor bleeding by counting pads --should f/u with her MODELING DIRECTOR provider after BMT Premature menopause 12/26/2015 Postmenopausal atrophic vaginitis 12/26/2015 Dyspareunia 12/26/2015 documented as of this encounter (statuses as of 06/06/2021) [facility] History of Past illness Narrative* Problem Noted Date Resolved Date Menorrhagia with regular cycle 03/15/2017 1 03/03/2017 Overview: Added automatically from request for surgery [id number] History of pulmonary embolism 04/25/2016 Neoplastic (malignant) [...] FOLLOW-UP 10/27/20122015 Overview: 32 yo female from [place]. Family involved with care, at bedside. plan to discharge patient home - will arrange with case management for post op care as needed - follow up in OPD in 7-10 days Post-op pain 10/27/2012 12/26/2015 Overview: currently well controlled with BOX FEEDER. will start PO pain meds today 10/27. tolerating percocet, pain relatively well controlled. Hodgkin's disease with nodular sclerosis 013 12/26/2015 Overview: Oncology history (per Dr. 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 Hodgkin's disease, unspecified 02/05/2012 0 05/11/2014 Vaginal bleeding 12/26/2015 Overview: --likely from thrombocytopenia. No menses in prior 8 months. Scant amount reported on 03/29 and 03/30, now resolved --monitor bleeding by counting pads --should f/u with her MODELING DIRECTOR provider after BMT Premature menopause 12/26/2015 Postmenopausal atrophic vaginitis 12/26/2015 Dyspareunia 12/26/2015 documented as of this encounter (statuses as of 06/07/2021) [facility] History of Past illness Narrative* Problem Noted Date Resolved Date Menorrhagia with regular cycle 03/15/2017 1 03/03/2017 Overview: Added automatically from request for surgery [id number] History of pulmonary embolism 04/25/2016 Neoplastic (malignant) [...] FOLLOW-UP 10/27/20122015 Overview: 32 yo female from [place]. Family involved with care, at bedside. plan to discharge patient home - will arrange with case management for post op care as needed - follow up in OPD in 7-10 days Post-op pain 10/27/2012 12/26/2015 Overview: currently well controlled with BOX FEEDER. will start PO pain meds today 10/27. tolerating percocet, pain relatively well controlled. Hodgkin's disease with nodular sclerosis 013 12/26/2015 Overview: Oncology history (per Dr. 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 Hodgkin's disease, unspecified 02/05/2012 0 05/11/2014 Vaginal bleeding 12/26/2015 Overview: --likely from thrombocytopenia. No menses in prior 8 months. Scant amount reported on 03/29 and 03/30, now resolved --monitor bleeding by counting pads --should f/u with her MODELING DIRECTOR provider after BMT Premature menopause 12/26/2015 Postmenopausal atrophic vaginitis 12/26/2015 Dyspareunia 12/26/2015 documented as of this encounter (statuses as of 06/14/2021) [facility] History of Past illness Narrative* Problem Noted Date Resolved Date Menorrhagia with regular cycle 03/15/2017 1 03/03/2017 Overview: Added automatically from request for surgery [id number] History of pulmonary embolism 04/25/2016 Neoplastic (malignant) [...] FOLLOW-UP 10/27/20122015 Overview: 32 yo female from [place]. Family involved with care, at bedside. plan to discharge patient home - will arrange with case management for post op care as needed - follow up in OPD in 7-10 days Post-op pain 10/27/2012 12/26/2015 Overview: currently well controlled with BOX FEEDER. will start PO pain meds today 10/27. tolerating percocet, pain relatively well controlled. Hodgkin's disease with nodular sclerosis 013 12/26/2015 Overview: Oncology history (per Dr. 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 Hodgkin's disease, unspecified 02/05/2012 0 05/11/2014 Vaginal bleeding 12/26/2015 Overview: --likely from thrombocytopenia. No menses in prior 8 months. Scant amount reported on 03/29 and 03/30, now resolved --monitor bleeding by counting pads --should f/u with her MODELING DIRECTOR provider after BMT Premature menopause 12/26/2015 Postmenopausal atrophic vaginitis 12/26/2015 Dyspareunia 12/26/2015 documented as of this encounter (statuses as of 06/14/2021) [facility] of Past illness Narrative* Problem Noted Date Resolved Date Menorrhagia with regular cycle 03/15/2017 1 03/03/2017 Overview: Added automatically from request for surgery [id number] History of pulmonary embolism 04/25/2016 Neoplastic (malignant) [...] FOLLOW-UP 10/27/20122015 Overview: 32 yo female from [place]. Family involved with care, at bedside. plan to discharge patient home - will arrange with case management for post op care as needed - follow up in OPD in 7-10 days Post-op pain 10/27/2012 12/26/2015 Overview: currently well controlled with BOX FEEDER. will start PO pain meds today 10/27. tolerating percocet, pain relatively well controlled. Hodgkin's disease with nodular sclerosis 013 12/26/2015 Overview: Oncology history (per Dr. 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 Hodgkin's disease, unspecified 02/05/2012 0 05/11/2014 Vaginal bleeding 12/26/2015 Overview: --likely from thrombocytopenia. No menses in prior 8 months. Scant amount reported on 03/29 and 03/30, now resolved --monitor bleeding by counting pads --should f/u with her MODELING DIRECTOR provider after BMT Premature menopause 12/26/2015 Postmenopausal atrophic vaginitis 12/26/2015 Dyspareunia 12/26/2015 documented as of this encounter (statuses as of 06/15/2021) [facility] of Past illness Narrative* Problem Noted Date Resolved Date Menorrhagia with regular cycle 03/15/2017 1 03/03/2017 Overview: Added automatically from request for surgery [id number] History of pulmonary embolism 04/25/2016 Neoplastic (malignant) [...] FOLLOW-UP 10/27/20122015 Overview: 32 yo female from [place]. Family involved with care, at bedside. plan to discharge patient home - will arrange with case management for post op care as needed - follow up in OPD in 7-10 days Post-op pain 10/27/2012 12/26/2015 Overview: currently well controlled with BOX FEEDER. will start PO pain meds today 10/27. tolerating percocet, pain relatively well controlled. Hodgkin's disease with nodular sclerosis 013 12/26/2015 Overview: Oncology history (per Dr. 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 Hodgkin's disease, unspecified 02/05/2012 0 05/11/2014 Vaginal bleeding 12/26/2015 Overview: --likely from thrombocytopenia. No menses in prior 8 months. Scant amount reported on 03/29 and 03/30, now resolved --monitor bleeding by counting pads --should f/u with her MODELING DIRECTOR provider after BMT Premature menopause 12/26/2015 Postmenopausal atrophic vaginitis 12/26/2015 Dyspareunia 12/26/2015 documented as of this encounter (statuses as of 06/30/2021) [facility] of Past illness Narrative* Problem Noted Date Resolved Date Menorrhagia with regular cycle 03/15/2017 1 03/03/2017 Overview: Added automatically from request for surgery [id number] History of pulmonary embolism 04/25/2016 Neoplastic (malignant) [...] FOLLOW-UP 10/27/20122015 Overview: 32 yo female from [place]. Family involved with care, at bedside. plan to discharge patient home - will arrange with case management for post op care as needed - follow up in OPD in 7-10 days Post-op pain 10/27/2012 12/26/2015 Overview: currently well controlled with BOX FEEDER. will start PO pain meds today 10/27. tolerating percocet, pain relatively well controlled. Hodgkin's disease with nodular sclerosis 013 12/26/2015 Overview: Oncology history (per Dr. 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 Hodgkin's disease, unspecified 02/05/2012 0 05/11/2014 Vaginal bleeding 12/26/2015 Overview: --likely from thrombocytopenia. No menses in prior 8 months. Scant amount reported on 03/29 and 03/30, now resolved --monitor bleeding by counting pads --should f/u with her MODELING DIRECTOR provider after BMT Premature menopause 12/26/2015 Postmenopausal atrophic vaginitis 12/26/2015 Dyspareunia 12/26/2015 documented as of this encounter (statuses as of 07/05/2021) [facility] of Past illness Narrative* Problem Noted Date Resolved Date Menorrhagia with regular cycle 03/15/2017 1 03/03/2017 Overview: Added automatically from request for surgery [id number] History of pulmonary embolism 04/25/2016 Neoplastic (malignant) [...] FOLLOW-UP 10/27/20122015 Overview: 32 yo female from [place]. Family involved with care, at bedside. plan to discharge patient home - will arrange with case management for post op care as needed - follow up in OPD in 7-10 days Post-op pain 10/27/2012 12/26/2015 Overview: currently well controlled with BOX FEEDER. will start PO pain meds today 10/27. tolerating percocet, pain relatively well controlled. Hodgkin's disease with nodular sclerosis 013 12/26/2015 Overview: Oncology history (per Dr. 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 Hodgkin's disease, unspecified 02/05/2012 0 05/11/2014 Vaginal bleeding 12/26/2015 Overview: --likely from thrombocytopenia. No menses in prior 8 months. Scant amount reported on 03/29 and 03/30, now resolved --monitor bleeding by counting pads --should f/u with her MODELING DIRECTOR provider after BMT Premature menopause 12/26/2015 Postmenopausal atrophic vaginitis 12/26/2015 Dyspareunia 12/26/2015 documented as of this encounter (statuses as of 07/06/2021) [facility] Past illness Narrative* Problem Noted Date Resolved Date Menorrhagia with regular cycle 03/15/2017 1 03/03/2017 Overview: Added automatically from request for surgery [id number] History of pulmonary embolism 04/25/2016 Neoplastic (malignant) [...] FOLLOW-UP 10/27/20122015 Overview: 32 yo female from [place]. Family involved with care, at bedside. plan to discharge patient home - will arrange with case management for post op care as needed - follow up in OPD in 7-10 days Post-op pain 10/27/2012 12/26/2015 Overview: currently well controlled with BOX FEEDER. will start PO pain meds today 10/27. tolerating percocet, pain relatively well controlled. Hodgkin's disease with nodular sclerosis 013 12/26/2015 Overview: Oncology history (per Dr. 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 Hodgkin's disease, unspecified 02/05/2012 0 05/11/2014 Vaginal bleeding 12/26/2015 Overview: --likely from thrombocytopenia. No menses in prior 8 months. Scant amount reported on 03/29 and 03/30, now resolved --monitor bleeding by counting pads --should f/u with her MODELING DIRECTOR provider after BMT Premature menopause 12/26/2015 Postmenopausal atrophic vaginitis 12/26/2015 Dyspareunia 12/26/2015 documented as of this encounter (statuses as of 2021) [facility] of Past illness Narrative* Problem Noted Date Resolved Date Menorrhagia with regular cycle 03/15/2017 1 03/03/2017 Overview: Added automatically from request for surgery [id number] History of pulmonary embolism 04/25/2016 Neoplastic (malignant) [...] FOLLOW-UP 10/27/20122015 Overview: 32 yo female from [place]. Family involved with care, at bedside. plan to discharge patient home - will arrange with case management for post op care as needed - follow up in OPD in 7-10 days Post-op pain 10/27/2012 12/26/2015 Overview: currently well controlled with BOX FEEDER. will start PO pain meds today 10/27. tolerating percocet, pain relatively well controlled. Hodgkin's disease with nodular sclerosis 013 12/26/2015 Overview: Oncology history (per Dr. 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 Hodgkin's disease, unspecified 02/05/2012 0 05/11/2014 Vaginal bleeding 12/26/2015 Overview: --likely from thrombocytopenia. No menses in prior 8 months. Scant amount reported on 03/29 and 03/30, now resolved --monitor bleeding by counting pads --should f/u with her MODELING DIRECTOR provider after BMT Premature menopause 12/26/2015 Postmenopausal atrophic vaginitis 12/26/2015 Dyspareunia 12/26/2015 documented as of this encounter (statuses as of 2021) [facility] of Past illness Narrative* Problem Noted Date Resolved Date Menorrhagia with regular cycle 03/15/2017 1 03/03/2017 Overview: Added automatically from request for surgery [id number] History of pulmonary embolism 04/25/2016 Neoplastic (malignant) [...] FOLLOW-UP 10/27/20122015 Overview: 32 yo female from [place]. Family involved with care, at bedside. plan to discharge patient home - will arrange with case management for post op care as needed - follow up in OPD in 7-10 days Post-op pain 10/27/2012 12/26/2015 Overview: currently well controlled with BOX FEEDER. will start PO pain meds today 10/27. tolerating percocet, pain relatively well controlled. Hodgkin's disease with nodular sclerosis 013 12/26/2015 Overview: Oncology history (per Dr. 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 Hodgkin's disease, unspecified 02/05/2012 0 05/11/2014 Vaginal bleeding 12/26/2015 Overview: --likely from thrombocytopenia. No menses in prior 8 months. Scant amount reported on 03/29 and 03/30, now resolved --monitor bleeding by counting pads --should f/u with her MODELING DIRECTOR provider after BMT Premature menopause 12/26/2015 Postmenopausal atrophic vaginitis 12/26/2015 Dyspareunia 12/26/2015 documented as of this encounter (statuses as of 07/26/2021) [facility] History of Past illness Narrative* Problem Noted Date Resolved Date Menorrhagia with regular cycle 03/15/2017 1 03/03/2017 Overview: Added automatically from request for surgery [id number] History of pulmonary embolism 04/25/2016 Neoplastic (malignant) [...] FOLLOW-UP 10/27/20122015 Overview: 32 yo female from [place]. Family involved with care, at bedside. plan to discharge patient home - will arrange with case management for post op care as needed - follow up in OPD in 7-10 days Post-op pain 10/27/2012 12/26/2015 Overview: currently well controlled with BOX FEEDER. will start PO pain meds today 10/27. tolerating percocet, pain relatively well controlled. Hodgkin's disease with nodular sclerosis 013 12/26/2015 Overview: Oncology history (per Dr. 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 Hodgkin's disease, unspecified 02/05/2012 0 05/11/2014 Vaginal bleeding 12/26/2015 Overview: --likely from thrombocytopenia. No menses in prior 8 months. Scant amount reported on 03/29 and 03/30, now resolved --monitor bleeding by counting pads --should f/u with her MODELING DIRECTOR provider after BMT Premature menopause 12/26/2015 Postmenopausal atrophic vaginitis 12/26/2015 Dyspareunia 12/26/2015 documented as of this encounter (statuses as of 07/28/2021) [facility] History of Past illness Narrative* Problem Noted Date Resolved Date Menorrhagia with regular cycle 03/15/2017 1 03/03/2017 Overview: Added automatically from request for surgery [id number] History of pulmonary embolism 04/25/2016 Neoplastic (malignant) [...] FOLLOW-UP 10/27/20122015 Overview: 32 yo female from [place]. Family involved with care, at bedside. plan to discharge patient home - will arrange with case management for post op care as needed - follow up in OPD in 7-10 days Post-op pain 10/27/2012 12/26/2015 Overview: currently well controlled with BOX FEEDER. will start PO pain meds today 10/27. tolerating percocet, pain relatively well controlled. Hodgkin's disease with nodular sclerosis 013 12/26/2015 Overview: Oncology history (per Dr. 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 Hodgkin's disease, unspecified 02/05/2012 0 05/11/2014 Vaginal bleeding 12/26/2015 Overview: --likely from thrombocytopenia. No menses in prior 8 months. Scant amount reported on 03/29 and 03/30, now resolved --monitor bleeding by counting pads --should f/u with her MODELING DIRECTOR provider after BMT Premature menopause 12/26/2015 Postmenopausal atrophic vaginitis 12/26/2015 Dyspareunia 12/26/2015 documented as of this encounter (statuses as of 07/31/2021) [facility] History of Past illness Narrative* Problem Noted Date Resolved Date Menorrhagia with regular cycle 03/15/2017 1 03/03/2017 Overview: Added automatically from request for surgery [id number] History of pulmonary embolism 04/25/2016 Neoplastic (malignant) [...] FOLLOW-UP 10/27/20122015 Overview: 32 yo female from [place]. Family involved with care, at bedside. plan to discharge patient home - will arrange with case management for post op care as needed - follow up in OPD in 7-10 days Post-op pain 10/27/2012 12/26/2015 Overview: currently well controlled with BOX FEEDER. will start PO pain meds today 10/27. tolerating percocet, pain relatively well controlled. Hodgkin's disease with nodular sclerosis 013 12/26/2015 Overview: Oncology history (per Dr. 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 Hodgkin's disease, unspecified 02/05/2012 0 05/11/2014 Vaginal bleeding 12/26/2015 Overview: --likely from thrombocytopenia. No menses in prior 8 months. Scant amount reported on 03/29 and 03/30, now resolved --monitor bleeding by counting pads --should f/u with her MODELING DIRECTOR provider after BMT Premature menopause 12/26/2015 Postmenopausal atrophic vaginitis 12/26/2015 Dyspareunia 12/26/2015 documented as of this encounter (statuses as of 07/31/2021) [facility] History of Past illness Narrative* Problem Noted Date Resolved Date Menorrhagia with regular cycle 03/15/2017 1 03/03/2017 Overview: Added automatically from request for surgery [id number] History of pulmonary embolism 04/25/2016 Neoplastic (malignant) [...] FOLLOW-UP 10/27/20122015 Overview: 32 yo female from [place]. Family involved with care, at bedside. plan to discharge patient home - will arrange with case management for post op care as needed - follow up in OPD in 7-10 days Post-op pain 10/27/2012 12/26/2015 Overview: currently well controlled with BOX FEEDER. will start PO pain meds today 10/27. tolerating percocet, pain relatively well controlled. Hodgkin's disease with nodular sclerosis 013 12/26/2015 Overview: Oncology history (per Dr. 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 Hodgkin's disease, unspecified 02/05/2012 0 05/11/2014 Vaginal bleeding 12/26/2015 Overview: --likely from thrombocytopenia. No menses in prior 8 months. Scant amount reported on 03/29 and 03/30, now resolved --monitor bleeding by counting pads --should f/u with her MODELING DIRECTOR provider after BMT Premature menopause 12/26/2015 Postmenopausal atrophic vaginitis 12/26/2015 Dyspareunia 12/26/2015 documented as of this encounter (statuses as of 08/03/2021) [facility] History of Past illness Narrative* Problem Noted Date Resolved Date Menorrhagia with regular cycle 03/15/2017 1 03/03/2017 Overview: Added automatically from request for surgery [id number] History of pulmonary embolism 04/25/2016 Neoplastic (malignant) [...] FOLLOW-UP 10/27/20122015 Overview: 32 yo female from [place]. Family involved with care, at bedside. plan to discharge patient home - will arrange with case management for post op care as needed - follow up in OPD in 7-10 days Post-op pain 10/27/2012 12/26/2015 Overview: currently well controlled with BOX FEEDER. will start PO pain meds today 10/27. tolerating percocet, pain relatively well controlled. Hodgkin's disease with nodular sclerosis 013 12/26/2015 Overview: Oncology history (per Dr. 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 Hodgkin's disease, unspecified 02/05/2012 0 05/11/2014 Vaginal bleeding 12/26/2015 Overview: --likely from thrombocytopenia. No menses in prior 8 months. Scant amount reported on 03/29 and 03/30, now resolved --monitor bleeding by counting pads --should f/u with her MODELING DIRECTOR provider after BMT Premature menopause 12/26/2015 Postmenopausal atrophic vaginitis 12/26/2015 Dyspareunia 12/26/2015 documented as of this encounter (statuses as of 08/15/2021) [facility] History of Past illness Narrative* Problem Noted Date Resolved Date Menorrhagia with regular cycle 03/15/2017 1 03/03/2017 Overview: Added automatically from request for surgery [id number] History of pulmonary embolism 04/25/2016 Neoplastic (malignant) [...] FOLLOW-UP 10/27/20122015 Overview: 32 yo female from [place]. Family involved with care, at bedside. plan to discharge patient home - will arrange with case management for post op care as needed - follow up in OPD in 7-10 days Post-op pain 10/27/2012 12/26/2015 Overview: currently well controlled with BOX FEEDER. will start PO pain meds today 10/27. tolerating percocet, pain relatively well controlled. Hodgkin's disease with nodular sclerosis 013 12/26/2015 Overview: Oncology history (per Dr. 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 Hodgkin's disease, unspecified 02/05/2012 0 05/11/2014 Vaginal bleeding 12/26/2015 Overview: --likely from thrombocytopenia. No menses in prior 8 months. Scant amount reported on 03/29 and 03/30, now resolved --monitor bleeding by counting pads --should f/u with her MODELING DIRECTOR provider after BMT Premature menopause 12/26/2015 Postmenopausal atrophic vaginitis 12/26/2015 Dyspareunia 12/26/2015 documented as of this encounter (statuses as of 08/16/2021) [facility] History of Past illness Narrative* Problem Noted Date Resolved Date Menorrhagia with regular cycle 03/15/2017 1 03/03/2017 Overview: Added automatically from request for surgery [id number] History of pulmonary embolism 04/25/2016 Neoplastic (malignant) [...] FOLLOW-UP 10/27/20122015 Overview: 32 yo female from [place]. Family involved with care, at bedside. plan to discharge patient home - will arrange with case management for post op care as needed - follow up in OPD in 7-10 days Post-op pain 10/27/2012 12/26/2015 Overview: currently well controlled with BOX FEEDER. will start PO pain meds today 10/27. tolerating percocet, pain relatively well controlled. Hodgkin's disease with nodular sclerosis 013 12/26/2015 Overview: Oncology history (per Dr. 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 Hodgkin's disease, unspecified 02/05/2012 0 05/11/2014 Vaginal bleeding 12/26/2015 Overview: --likely from thrombocytopenia. No menses in prior 8 months. Scant amount reported on 03/29 and 03/30, now resolved --monitor bleeding by counting pads --should f/u with her MODELING DIRECTOR provider after BMT Premature menopause 12/26/2015 Postmenopausal atrophic vaginitis 12/26/2015 Dyspareunia 12/26/2015 documented as of this encounter (statuses as of 08/30/2021) [facility] of Past illness Narrative* Problem Noted Date Resolved Date Menorrhagia with regular cycle 03/15/2017 1 03/03/2017 Overview: Added automatically from request for surgery [id number] History of pulmonary embolism 04/25/2016 Neoplastic (malignant) [...] FOLLOW-UP 10/27/20122015 Overview: 32 yo female from [place]. Family involved with care, at bedside. plan to discharge patient home - will arrange with case management for post op care as needed - follow up in OPD in 7-10 days Post-op pain 10/27/2012 12/26/2015 Overview: currently well controlled with BOX FEEDER. will start PO pain meds today 10/27. tolerating percocet, pain relatively well controlled. Hodgkin's disease with nodular sclerosis 013 12/26/2015 Overview: Oncology history (per Dr. 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 Hodgkin's disease, unspecified 02/05/2012 0 05/11/2014 Vaginal bleeding 12/26/2015 Overview: --likely from thrombocytopenia. No menses in prior 8 months. Scant amount reported on 03/29 and 03/30, now resolved --monitor bleeding by counting pads --should f/u with her MODELING DIRECTOR provider after BMT Premature menopause 12/26/2015 Postmenopausal atrophic vaginitis 12/26/2015 Dyspareunia 12/26/2015 documented as of this encounter (statuses as of 09/04/2021) [facility] of Past illness Narrative* Problem Noted Date Resolved Date Menorrhagia with regular cycle 03/15/2017 1 03/03/2017 Overview: Added automatically from request for surgery [id number] History of pulmonary embolism 04/25/2016 Neoplastic (malignant) [...] FOLLOW-UP 10/27/20122015 Overview: 32 yo female from [place]. Family involved with care, at bedside. plan to discharge patient home - will arrange with case management for post op care as needed - follow up in OPD in 7-10 days Post-op pain 10/27/2012 12/26/2015 Overview: currently well controlled with BOX FEEDER. will start PO pain meds today 10/27. tolerating percocet, pain relatively well controlled. Hodgkin's disease with nodular sclerosis 013 12/26/2015 Overview: Oncology history (per Dr. 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 Hodgkin's disease, unspecified 02/05/2012 0 05/11/2014 Vaginal bleeding 12/26/2015 Overview: --likely from thrombocytopenia. No menses in prior 8 months. Scant amount reported on 03/29 and 03/30, now resolved --monitor bleeding by counting pads --should f/u with her MODELING DIRECTOR provider after BMT Premature menopause 12/26/2015 Postmenopausal atrophic vaginitis 12/26/2015 Dyspareunia 12/26/2015 documented as of this encounter (statuses as of 09/04/2021) [facility] of Past illness Narrative* Problem Noted Date Resolved Date Menorrhagia with regular cycle 03/15/2017 1 03/03/2017 Overview: Added automatically from request for surgery [id number] History of pulmonary embolism 04/25/2016 Neoplastic (malignant) [...] FOLLOW-UP 10/27/20122015 Overview: 32 yo female from [place]. Family involved with care, at bedside. plan to discharge patient home - will arrange with case management for post op care as needed - follow up in OPD in 7-10 days Post-op pain 10/27/2012 12/26/2015 Overview: currently well controlled with BOX FEEDER. will start PO pain meds today 10/27. tolerating percocet, pain relatively well controlled. Hodgkin's disease with nodular sclerosis 013 12/26/2015 Overview: Oncology history (per Dr. 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 Hodgkin's disease, unspecified 02/05/2012 0 05/11/2014 Vaginal bleeding 12/26/2015 Overview: --likely from thrombocytopenia. No menses in prior 8 months. Scant amount reported on 03/29 and 03/30, now resolved --monitor bleeding by counting pads --should f/u with her MODELING DIRECTOR provider after BMT Premature menopause 12/26/2015 Postmenopausal atrophic vaginitis 12/26/2015 Dyspareunia 12/26/2015 documented as of this encounter (statuses as of 09/05/2021) [facility] of Past illness Narrative* Problem Noted Date Resolved Date Menorrhagia with regular cycle 03/15/2017 1 03/03/2017 Overview: Added automatically from request for surgery [id number] History of pulmonary embolism 04/25/2016 Neoplastic (malignant) [...] will need to follow up with Dr. nUger after discharge Tachycardia 03/16/2013 12/26/2015 Overview: --patient taking atenolol 100mg BID at home, now BP running lower, decreased atenolol dose to 50mg BID with hypotension. --increase to 75mg BID, d/t tachycardia(HRs >110 while afebrile), HR now controlled, continue --monitor closely Electrolyte and fluid disorders not elsewhere cl assified 02/16/2013 12/26/2015 DISPOSITION AND FOLLOW-UP 10/27/20122015 Overview: 32 yo female from [place]. Family involved with care, at bedside. plan to discharge patient home - will arrange with case management for post op care as needed - follow up in OPD in 7-10 days Post-op pain 10/27/2012 12/26/2015 Overview: currently well controlled with BOX FEEDER. will start PO pain meds today 10/27. tolerating percocet, pain relatively well controlled. Hodgkin's disease with nodular sclerosis 013 12/26/2015 Overview: Oncology history (per Dr. 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 Hodgkin's disease, unspecified 02/05/2012 0 05/11/2014 Vaginal bleeding 12/26/2015 Overview: --likely from thrombocytopenia. No menses in prior 8 months. Scant amount reported on 03/29 and 03/30, now resolved --monitor bleeding by counting pads --should f/u with her MODELING DIRECTOR provider after BMT Premature menopause 12/26/2015 Postmenopausal atrophic vaginitis 12/26/2015 Dyspareunia 12/26/2015 documented as of this encounter (statuses as of 09/06/2021) [facility] of Past illness Narrative* Problem Noted Date Resolved Date Menorrhagia with regular cycle 03/15/2017 1 03/03/2017 Overview: Added automatically from request for surgery [id number] History of pulmonary embolism 04/25/2016 Neoplastic (malignant) [...] FOLLOW-UP 10/27/20122015 Overview: 32 yo female from [place]. Family involved with care, at bedside. plan to discharge patient home - will arrange with case management for post op care as needed - follow up in OPD in 7-10 days Post-op pain 10/27/2012 12/26/2015 Overview: currently well controlled with BOX FEEDER. will start PO pain meds today 10/27. tolerating percocet, pain relatively well controlled. Hodgkin's disease with nodular sclerosis 013 12/26/2015 Overview: Oncology history (per Dr. 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 Hodgkin's disease, unspecified 02/05/2012 0 05/11/2014 Vaginal bleeding 12/26/2015 Overview: --likely from thrombocytopenia. No menses in prior 8 months. Scant amount reported on 03/29 and 03/30, now resolved --monitor bleeding by counting pads --should f/u with her MODELING DIRECTOR provider after BMT Premature menopause 12/26/2015 Postmenopausal atrophic vaginitis 12/26/2015 Dyspareunia 12/26/2015 documented as of this encounter (statuses as of 09/11/2021) [facility] illness Narrative* Problem Noted Date Resolved Date Menorrhagia with regular cycle 03/15/2017 1 03/03/2017 Overview: Added automatically from request for surgery [id number] History of pulmonary embolism 04/25/2016 Neoplastic (malignant) [...] FOLLOW-UP 10/27/20122015 Overview: 32 yo female from [place]. Family involved with care, at bedside. plan to discharge patient home - will arrange with case management for post op care as needed - follow up in OPD in 7-10 days Post-op pain 10/27/2012 12/26/2015 Overview: currently well controlled with BOX FEEDER. will start PO pain meds today 10/27. tolerating percocet, pain relatively well controlled. Hodgkin's disease with nodular sclerosis 013 12/26/2015 Overview: Oncology history (per Dr. 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 Hodgkin's disease, unspecified 02/05/2012 0 05/11/2014 Vaginal bleeding 12/26/2015 Overview: --likely from thrombocytopenia. No menses in prior 8 months. Scant amount reported on 03/29 and 03/30, now resolved --monitor bleeding by counting pads --should f/u with her MODELING DIRECTOR provider after BMT Premature menopause 12/26/2015 Postmenopausal atrophic vaginitis 12/26/2015 Dyspareunia 12/26/2015 documented as of this encounter (statuses as of 09/22/2021) [facility] Past illness Narrative* Problem Noted Date Resolved Date Menorrhagia with regular cycle 03/15/2017 1 03/03/2017 Overview: Added automatically from request for surgery [id number] History of pulmonary embolism 04/25/2016 Neoplastic (malignant) [...] FOLLOW-UP 10/27/20122015 Overview: 32 yo female from [place]. Family involved with care, at bedside. plan to discharge patient home - will arrange with case management for post op care as needed - follow up in OPD in 7-10 days Post-op pain 10/27/2012 12/26/2015 Overview: currently well controlled with BOX FEEDER. will start PO pain meds today 10/27. tolerating percocet, pain relatively well controlled. Hodgkin's disease with nodular sclerosis 013 12/26/2015 Overview: Oncology history (per Dr. 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 Hodgkin's disease, unspecified 02/05/2012 0 05/11/2014 Vaginal bleeding 12/26/2015 Overview: --likely from thrombocytopenia. No menses in prior 8 months. Scant amount reported on 03/29 and 03/30, now resolved --monitor bleeding by counting pads --should f/u with her MODELING DIRECTOR provider after BMT Premature menopause 12/26/2015 Postmenopausal atrophic vaginitis 12/26/2015 Dyspareunia 12/26/2015 documented as of this encounter (statuses as of 09/22/2021) [facility] Past [facility] Narrative* Problem Noted Date Resolved Date Menorrhagia with regular cycle 03/15/2017 1 03/03/2017 Overview: Added automatically from request for surgery [id number] History of pulmonary embolism 04/25/2016 Neoplastic (malignant) [...] FOLLOW-UP 10/27/20122015 Overview: 32 yo female from [place]. Family involved with care, at bedside. plan to discharge patient home - will arrange with case management for post op care as needed - follow up in OPD in 7-10 days Post-op pain 10/27/2012 12/26/2015 Overview: currently well controlled with BOX FEEDER. will start PO pain meds today 10/27. tolerating percocet, pain relatively well controlled. Hodgkin's disease with nodular sclerosis 013 12/26/2015 Overview: Oncology history (per Dr. 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 Hodgkin's disease, unspecified 02/05/2012 0 05/11/2014 Vaginal bleeding 12/26/2015 Overview: --likely from thrombocytopenia. No menses in prior 8 months. Scant amount reported on 03/29 and 03/30, now resolved --monitor bleeding by counting pads --should f/u with her MODELING DIRECTOR provider after BMT Premature menopause 12/26/2015 Postmenopausal atrophic vaginitis 12/26/2015 Dyspareunia 12/26/2015 documented as of this encounter (statuses as of 10/02/2021) [facility] History of Past illness Narrative* Problem Noted Date Resolved Date Menorrhagia with regular cycle 03/15/2017 1 03/03/2017 Overview: Added automatically from request for surgery [id number] History of pulmonary embolism 04/25/2016 Neoplastic (malignant) [...] FOLLOW-UP 10/27/20122015 Overview: 32 yo female from [place]. Family involved with care, at bedside. plan to discharge patient home - will arrange with case management for post op care as needed - follow up in OPD in 7-10 days Post-op pain 10/27/2012 12/26/2015 Overview: currently well controlled with BOX FEEDER. will start PO pain meds today 10/27. tolerating percocet, pain relatively well controlled. Hodgkin's disease with nodular sclerosis 013 12/26/2015 Overview: Oncology history (per Dr. 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 Hodgkin's disease, unspecified 02/05/2012 0 05/11/2014 Vaginal bleeding 12/26/2015 Overview: --likely from thrombocytopenia. No menses in prior 8 months. Scant amount reported on 03/29 and 03/30, now resolved --monitor bleeding by counting pads --should f/u with her MODELING DIRECTOR provider after BMT Premature menopause 12/26/2015 Postmenopausal atrophic vaginitis 12/26/2015 Dyspareunia 12/26/2015 documented as of this encounter (statuses as of 10/05/2021) [facility] History of Past illness Narrative* Problem Noted Date Resolved Date Menorrhagia with regular cycle 03/15/2017 1 03/03/2017 Overview: Added automatically from request for surgery [id number] History of pulmonary embolism 04/25/2016 Neoplastic (malignant) [...] FOLLOW-UP 10/27/20122015 Overview: 32 yo female from [place]. Family involved with care, at bedside. plan to discharge patient home - will arrange with case management for post op care as needed - follow up in OPD in 7-10 days Post-op pain 10/27/2012 12/26/2015 Overview: currently well controlled with BOX FEEDER. will start PO pain meds today 10/27. tolerating percocet, pain relatively well controlled. Hodgkin's disease with nodular sclerosis 013 12/26/2015 Overview: Oncology history (per Dr. 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 Hodgkin's disease, unspecified 02/05/2012 0 05/11/2014 Vaginal bleeding 12/26/2015 Overview: --likely from thrombocytopenia. No menses in prior 8 months. Scant amount reported on 03/29 and 03/30, now resolved --monitor bleeding by counting pads --should f/u with her MODELING DIRECTOR provider after BMT Premature menopause 12/26/2015 Postmenopausal atrophic vaginitis 12/26/2015 Dyspareunia 12/26/2015 documented as of this encounter (statuses as of 10/16/2021) [facility] History of Past illness Narrative* Problem Noted Date Resolved Date Menorrhagia with regular cycle 03/15/2017 1 03/03/2017 Overview: Added automatically from request for surgery [id number] History of pulmonary embolism 04/25/2016 Neoplastic (malignant) [...] FOLLOW-UP 10/27/20122015 Overview: 32 yo female from [place]. Family involved with care, at bedside. plan to discharge patient home - will arrange with case management for post op care as needed - follow up in OPD in 7-10 days Post-op pain 10/27/2012 12/26/2015 Overview: currently well controlled with BOX FEEDER. will start PO pain meds today 10/27. tolerating percocet, pain relatively well controlled. Hodgkin's disease with nodular sclerosis 013 12/26/2015 Overview: Oncology history (per Dr. 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 Hodgkin's disease, unspecified 02/05/2012 0 05/11/2014 Vaginal bleeding 12/26/2015 Overview: --likely from thrombocytopenia. No menses in prior 8 months. Scant amount reported on 03/29 and 03/30, now resolved --monitor bleeding by counting pads --should f/u with her MODELING DIRECTOR provider after BMT Premature menopause 12/26/2015 Postmenopausal atrophic vaginitis 12/26/2015 Dyspareunia 12/26/2015 documented as of this encounter (statuses as of 10/18/2021) [facility] History of Past illness Narrative* Problem Noted Date Resolved Date Menorrhagia with regular cycle 03/15/2017 1 03/03/2017 Overview: Added automatically from request for surgery [id number] History of pulmonary embolism 04/25/2016 Neoplastic (malignant) [...] FOLLOW-UP 10/27/20122015 Overview: 32 yo female from [place]. Family involved with care, at bedside. plan to discharge patient home - will arrange with case management for post op care as needed - follow up in OPD in 7-10 days Post-op pain 10/27/2012 12/26/2015 Overview: currently well controlled with BOX FEEDER. will start PO pain meds today 10/27. tolerating percocet, pain relatively well controlled. Hodgkin's disease with nodular sclerosis 013 12/26/2015 Overview: Oncology history (per Dr. 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 Hodgkin's disease, unspecified 02/05/2012 0 05/11/2014 Vaginal bleeding 12/26/2015 Overview: --likely from thrombocytopenia. No menses in prior 8 months. Scant amount reported on 03/29 and 03/30, now resolved --monitor bleeding by counting pads --should f/u with her MODELING DIRECTOR provider after BMT Premature menopause 12/26/2015 Postmenopausal atrophic vaginitis 12/26/2015 Dyspareunia 12/26/2015 documented as of this encounter (statuses as of 10/25/2021) [facility] History of Past illness Narrative* Problem Noted Date Resolved Date Menorrhagia with regular cycle 03/15/2017 1 03/03/2017 Overview: Added automatically from request for surgery [id number] History of pulmonary embolism 04/25/2016 Neoplastic (malignant) [...] FOLLOW-UP 10/27/20122015 Overview: 32 yo female from [place]. Family involved with care, at bedside. plan to discharge patient home - will arrange with case management for post op care as needed - follow up in OPD in 7-10 days Post-op pain 10/27/2012 12/26/2015 Overview: currently well controlled with BOX FEEDER. will start PO pain meds today 10/27. tolerating percocet, pain relatively well controlled. Hodgkin's disease with nodular sclerosis 013 12/26/2015 Overview: Oncology history (per Dr. 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 Hodgkin's disease, unspecified 02/05/2012 0 05/11/2014 Vaginal bleeding 12/26/2015 Overview: --likely from thrombocytopenia. No menses in prior 8 months. Scant amount reported on 03/29 and 03/30, now resolved --monitor bleeding by counting pads --should f/u with her MODELING DIRECTOR provider after BMT Premature menopause 12/26/2015 Postmenopausal atrophic vaginitis 12/26/2015 Dyspareunia 12/26/2015 documented as of this encounter (statuses as of 10/25/2021) [facility] History of Past illness Narrative* Problem Noted Date Resolved Date Menorrhagia with regular cycle 03/15/2017 1 03/03/2017 Overview: Added automatically from request for surgery [id number] History of pulmonary embolism 04/25/2016 Neoplastic (malignant) [...] FOLLOW-UP 10/27/20122015 Overview: 32 yo female from [place]. Family involved with care, at bedside. plan to discharge patient home - will arrange with case management for post op care as needed - follow up in OPD in 7-10 days Post-op pain 10/27/2012 12/26/2015 Overview: currently well controlled with BOX FEEDER. will start PO pain meds today 10/27. tolerating percocet, pain relatively well controlled. Hodgkin's disease with nodular sclerosis 013 12/26/2015 Overview: Oncology history (per Dr. 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 Hodgkin's disease, unspecified 02/05/2012 0 05/11/2014 Vaginal bleeding 12/26/2015 Overview: --likely from thrombocytopenia. No menses in prior 8 months. Scant amount reported on 03/29 and 03/30, now resolved --monitor bleeding by counting pads --should f/u with her MODELING DIRECTOR provider after BMT Premature menopause 12/26/2015 Postmenopausal atrophic vaginitis 12/26/2015 Dyspareunia 12/26/2015 documented as of this encounter (statuses as of 10/26/2021) [facility] History of Past illness Narrative* Problem Noted Date Resolved Date Menorrhagia with regular cycle 03/15/2017 1 03/03/2017 Overview: Added automatically from request for surgery [id number] History of pulmonary embolism 04/25/2016 Neoplastic (malignant) [...] FOLLOW-UP 10/27/20122015 Overview: 32 yo female from [place]. Family involved with care, at bedside. plan to discharge patient home - will arrange with case management for post op care as needed - follow up in OPD in 7-10 days Post-op pain 10/27/2012 12/26/2015 Overview: currently well controlled with BOX FEEDER. will start PO pain meds today 10/27. tolerating percocet, pain relatively well controlled. Hodgkin's disease with nodular sclerosis 013 12/26/2015 Overview: Oncology history (per Dr. 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 Hodgkin's disease, unspecified 02/05/2012 0 05/11/2014 Vaginal bleeding 12/26/2015 Overview: --likely from thrombocytopenia. No menses in prior 8 months. Scant amount reported on 03/29 and 03/30, now resolved --monitor bleeding by counting pads --should f/u with her MODELING DIRECTOR provider after BMT Premature menopause 12/26/2015 Postmenopausal atrophic vaginitis 12/26/2015 Dyspareunia 12/26/2015 documented as of this encounter (statuses as of 10/26/2021) [facility] History of Past illness Narrative* Problem Noted Date Resolved Date Menorrhagia with regular cycle 03/15/2017 1 03/03/2017 Overview: Added automatically from request for surgery [id number] History of pulmonary embolism 04/25/2016 Neoplastic (malignant) [...] FOLLOW-UP 10/27/20122015 Overview: 32 yo female from [place]. Family involved with care, at bedside. plan to discharge patient home - will arrange with case management for post op care as needed - follow up in OPD in 7-10 days Post-op pain 10/27/2012 12/26/2015 Overview: currently well controlled with BOX FEEDER. will start PO pain meds today 10/27. tolerating percocet, pain relatively well controlled. Hodgkin's disease with nodular sclerosis 013 12/26/2015 Overview: Oncology history (per Dr. 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 Hodgkin's disease, unspecified 02/05/2012 0 05/11/2014 Vaginal bleeding 12/26/2015 Overview: --likely from thrombocytopenia. No menses in prior 8 months. Scant amount reported on 03/29 and 03/30, now resolved --monitor bleeding by counting pads --should f/u with her MODELING DIRECTOR provider after BMT Premature menopause 12/26/2015 Postmenopausal atrophic vaginitis 12/26/2015 Dyspareunia 12/26/2015 documented as of this encounter (statuses as of 10/31/2021) [facility] of Past illness Narrative* Problem Noted Date Resolved Date Menorrhagia with regular cycle 03/15/2017 1 03/03/2017 Overview: Added automatically from request for surgery [id number] History of pulmonary embolism 04/25/2016 Neoplastic (malignant) [...] FOLLOW-UP 10/27/20122015 Overview: 32 yo female from [place]. Family involved with care, at bedside. plan to discharge patient home - will arrange with case management for post op care as needed - follow up in OPD in 7-10 days Post-op pain 10/27/2012 12/26/2015 Overview: currently well controlled with BOX FEEDER. will start PO pain meds today 10/27. tolerating percocet, pain relatively well controlled. Hodgkin's disease with nodular sclerosis 013 12/26/2015 Overview: Oncology history (per Dr. 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 Hodgkin's disease, unspecified 02/05/2012 0 05/11/2014 Vaginal bleeding 12/26/2015 Overview: --likely from thrombocytopenia. No menses in prior 8 months. Scant amount reported on 03/29 and 03/30, now resolved --monitor bleeding by counting pads --should f/u with her MODELING DIRECTOR provider after BMT Premature menopause 12/26/2015 Postmenopausal atrophic vaginitis 12/26/2015 Dyspareunia 12/26/2015 documented as of this encounter (statuses as of 11/08/2021) [facility] of Past illness Narrative* Problem Noted Date Resolved Date Menorrhagia with regular cycle 03/15/2017 1 03/03/2017 Overview: Added automatically from request for surgery [id number] History of pulmonary embolism 04/25/2016 Neoplastic (malignant) [...] FOLLOW-UP 10/27/20122015 Overview: 32 yo female from [place]. Family involved with care, at bedside. plan to discharge patient home - will arrange with case management for post op care as needed - follow up in OPD in 7-10 days Post-op pain 10/27/2012 12/26/2015 Overview: currently well controlled with BOX FEEDER. will start PO pain meds today 10/27. tolerating percocet, pain relatively well controlled. Hodgkin's disease with nodular sclerosis 013 12/26/2015 Overview: Oncology history (per Dr. 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 Hodgkin's disease, unspecified 02/05/2012 0 05/11/2014 Vaginal bleeding 12/26/2015 Overview: --likely from thrombocytopenia. No menses in prior 8 months. Scant amount reported on 03/29 and 03/30, now resolved --monitor bleeding by counting pads --should f/u with her MODELING DIRECTOR provider after BMT Premature menopause 12/26/2015 Postmenopausal atrophic vaginitis 12/26/2015 Dyspareunia 12/26/2015 documented as of this encounter (statuses as of 11/13/2021) [facility] of Past illness Narrative* Problem Noted Date Resolved Date Menorrhagia with regular cycle 03/15/2017 1 03/03/2017 Overview: Added automatically from request for surgery [id number] History of pulmonary embolism 04/25/2016 Neoplastic (malignant) [...] FOLLOW-UP 10/27/20122015 Overview: 32 yo female from [place]. Family involved with care, at bedside. plan to discharge patient home - will arrange with case management for post op care as needed - follow up in OPD in 7-10 days Post-op pain 10/27/2012 12/26/2015 Overview: currently well controlled with BOX FEEDER. will start PO pain meds today 10/27. tolerating percocet, pain relatively well controlled. Hodgkin's disease with nodular sclerosis 013 12/26/2015 Overview: Oncology history (per Dr. 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 Hodgkin's disease, unspecified 02/05/2012 0 05/11/2014 Vaginal bleeding 12/26/2015 Overview: --likely from thrombocytopenia. No menses in prior 8 months. Scant amount reported on 03/29 and 03/30, now resolved --monitor bleeding by counting pads --should f/u with her MODELING DIRECTOR provider after BMT Premature menopause 12/26/2015 Postmenopausal atrophic vaginitis 12/26/2015 Dyspareunia 12/26/2015 documented as of this encounter (statuses as of 11/13/2021) [facility] of Past illness Narrative* Problem Noted Date Resolved Date Menorrhagia with regular cycle 03/15/2017 1 03/03/2017 Overview: Added automatically from request for surgery [id number] History of pulmonary embolism 04/25/2016 Neoplastic (malignant) [...] FOLLOW-UP 10/27/20122015 Overview: 32 yo female from [place]. Family involved with care, at bedside. plan to discharge patient home - will arrange with case management for post op care as needed - follow up in OPD in 7-10 days Post-op pain 10/27/2012 12/26/2015 Overview: currently well controlled with BOX FEEDER. will start PO pain meds today 10/27. tolerating percocet, pain relatively well controlled. Hodgkin's disease with nodular sclerosis 013 12/26/2015 Overview: Oncology history (per Dr. 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 Hodgkin's disease, unspecified 02/05/2012 0 05/11/2014 Vaginal bleeding 12/26/2015 Overview: --likely from thrombocytopenia. No menses in prior 8 months. Scant amount reported on 03/29 and 03/30, now resolved --monitor bleeding by counting pads --should f/u with her MODELING DIRECTOR provider after BMT Premature menopause 12/26/2015 Postmenopausal atrophic vaginitis 12/26/2015 Dyspareunia 12/26/2015 documented as of this encounter (statuses as of 11/14/2021) [facility] of Past illness Narrative* Problem Noted Date Resolved Date Menorrhagia with regular cycle 03/15/2017 1 03/03/2017 Overview: Added automatically from request for surgery [id number] History of pulmonary embolism 04/25/2016 Neoplastic (malignant) [...] FOLLOW-UP 10/27/20122015 Overview: 32 yo female from [place]. Family involved with care, at bedside. plan to discharge patient home - will arrange with case management for post op care as needed - follow up in OPD in 7-10 days Post-op pain 10/27/2012 12/26/2015 Overview: currently well controlled with BOX FEEDER. will start PO pain meds today 10/27. tolerating percocet, pain relatively well controlled. Hodgkin's disease with nodular sclerosis 013 12/26/2015 Overview: Oncology history (per Dr. 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 Hodgkin's disease, unspecified 02/05/2012 0 05/11/2014 Vaginal bleeding 12/26/2015 Overview: --likely from thrombocytopenia. No menses in prior 8 months. Scant amount reported on 03/29 and 03/30, now resolved --monitor bleeding by counting pads --should f/u with her MODELING DIRECTOR provider after BMT Premature menopause 12/26/2015 Postmenopausal atrophic vaginitis 12/26/2015 Dyspareunia 12/26/2015 documented as of this encounter (statuses as of 11/15/2021) [facility] of Past illness Narrative* Problem Noted Date Resolved Date Menorrhagia with regular cycle 03/15/2017 1 03/03/2017 Overview: Added automatically from request for surgery [id number] History of pulmonary embolism 04/25/2016 Neoplastic (malignant) [...] FOLLOW-UP 10/27/20122015 Overview: 32 yo female from [place]. Family involved with care, at bedside. plan to discharge patient home - will arrange with case management for post op care as needed - follow up in OPD in 7-10 days Post-op pain 10/27/2012 12/26/2015 Overview: currently well controlled with BOX FEEDER. will start PO pain meds today 10/27. tolerating percocet, pain relatively well controlled. Hodgkin's disease with nodular sclerosis 013 12/26/2015 Overview: Oncology history (per Dr. 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 Hodgkin's disease, unspecified 02/05/2012 0 05/11/2014 Vaginal bleeding 12/26/2015 Overview: --likely from thrombocytopenia. No menses in prior 8 months. Scant amount reported on 03/29 and 03/30, now resolved --monitor bleeding by counting pads --should f/u with her MODELING DIRECTOR provider after BMT Premature menopause 12/26/2015 Postmenopausal atrophic vaginitis 12/26/2015 Dyspareunia 12/26/2015 documented as of this encounter (statuses as of 11/15/2021) [facility] of Past illness Narrative* Problem Noted Date Resolved Date Menorrhagia with regular cycle 03/15/2017 1 03/03/2017 Overview: Added automatically from request for surgery [id number] History of pulmonary embolism 04/25/2016 Neoplastic (malignant) [...] FOLLOW-UP 10/27/20122015 Overview: 32 yo female from [place]. Family involved with care, at bedside. plan to discharge patient home - will arrange with case management for post op care as needed - follow up in OPD in 7-10 days Post-op pain 10/27/2012 12/26/2015 Overview: currently well controlled with BOX FEEDER. will start PO pain meds today 10/27. tolerating percocet, pain relatively well controlled. Hodgkin's disease with nodular sclerosis 013 12/26/2015 Overview: Oncology history (per Dr. 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 Hodgkin's disease, unspecified 02/05/2012 0 05/11/2014 Vaginal bleeding 12/26/2015 Overview: --likely from thrombocytopenia. No menses in prior 8 months. Scant amount reported on 03/29 and 03/30, now resolved --monitor bleeding by counting pads --should f/u with her MODELING DIRECTOR provider after BMT Premature menopause 12/26/2015 Postmenopausal atrophic vaginitis 12/26/2015 Dyspareunia 12/26/2015 documented as of this encounter (statuses as of 12/04/2021) [facility] History of Past illness Narrative* Problem Noted Date Resolved Date Menorrhagia with regular cycle 03/15/2017 1 03/03/2017 Overview: Added automatically from request for surgery [id number] History of pulmonary embolism 04/25/2016 Neoplastic (malignant) [...] FOLLOW-UP 10/27/20122015 Overview: 32 yo female from [place]. Family involved with care, at bedside. plan to discharge patient home - will arrange with case management for post op care as needed - follow up in OPD in 7-10 days Post-op pain 10/27/2012 12/26/2015 Overview: currently well controlled with BOX FEEDER. will start PO pain meds today 10/27. tolerating percocet, pain relatively well controlled. Hodgkin's disease with nodular sclerosis 013 12/26/2015 Overview: Oncology history (per Dr. 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 Hodgkin's disease, unspecified 02/05/2012 0 05/11/2014 Vaginal bleeding 12/26/2015 Overview: --likely from thrombocytopenia. No menses in prior 8 months. Scant amount reported on 03/29 and 03/30, now resolved --monitor bleeding by counting pads --should f/u with her MODELING DIRECTOR provider after BMT Premature menopause 12/26/2015 Postmenopausal atrophic vaginitis 12/26/2015 Dyspareunia 12/26/2015 documented as of this encounter (statuses as of 12/05/2021) [facility] History of Past illness Narrative* Problem Noted Date Resolved Date Menorrhagia with regular cycle 03/15/2017 1 03/03/2017 Overview: Added automatically from request for surgery [id number] History of pulmonary embolism 04/25/2016 Neoplastic (malignant) [...] FOLLOW-UP 10/27/20122015 Overview: 32 yo female from [place]. Family involved with care, at bedside. plan to discharge patient home - will arrange with case management for post op care as needed - follow up in OPD in 7-10 days Post-op pain 10/27/2012 12/26/2015 Overview: currently well controlled with BOX FEEDER. will start PO pain meds today 10/27. tolerating percocet, pain relatively well controlled. Hodgkin's disease with nodular sclerosis 013 12/26/2015 Overview: Oncology history (per Dr. 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 Hodgkin's disease, unspecified 02/05/2012 0 05/11/2014 Vaginal bleeding 12/26/2015 Overview: --likely from thrombocytopenia. No menses in prior 8 months. Scant amount reported on 03/29 and 03/30, now resolved --monitor bleeding by counting pads --should f/u with her MODELING DIRECTOR provider after BMT Premature menopause 12/26/2015 Postmenopausal atrophic vaginitis 12/26/2015 Dyspareunia 12/26/2015 documented as of this encounter (statuses as of 12/06/2021) [facility] History of Past illness Narrative* Problem Noted Date Resolved Date Menorrhagia with regular cycle 03/15/2017 1 03/03/2017 Overview: Added automatically from request for surgery [id number] History of pulmonary embolism 04/25/2016 Neoplastic (malignant) [...] FOLLOW-UP 10/27/20122015 Overview: 32 yo female from [place]. Family involved with care, at bedside. plan to discharge patient home - will arrange with case management for post op care as needed - follow up in OPD in 7-10 days Post-op pain 10/27/2012 12/26/2015 Overview: currently well controlled with BOX FEEDER. will start PO pain meds today 10/27. tolerating percocet, pain relatively well controlled. Hodgkin's disease with nodular sclerosis 013 12/26/2015 Overview: Oncology history (per Dr. 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 Hodgkin's disease, unspecified 02/05/2012 0 05/11/2014 Vaginal bleeding 12/26/2015 Overview: --likely from thrombocytopenia. No menses in prior 8 months. Scant amount reported on 03/29 and 03/30, now resolved --monitor bleeding by counting pads --should f/u with her MODELING DIRECTOR provider after BMT Premature menopause 12/26/2015 Postmenopausal atrophic vaginitis 12/26/2015 Dyspareunia 12/26/2015 documented as of this encounter (statuses as of 12/07/2021) [facility] History of Past illness Narrative* Problem Noted Date Resolved Date Menorrhagia with regular cycle 03/15/2017 1 03/03/2017 Overview: Added automatically from request for surgery [id number] History of pulmonary embolism 04/25/2016 Neoplastic (malignant) [...] will need to follow up with Dr. Cornel after discharge Tachycardia 03/16/2013 12/26/2015 Overview: --patient taking atenolol 100mg BID at home, now BP running lower, decreased atenolol dose to 50mg BID with hypotension. --increase to 75mg BID, d/t tachycardia(HRs >110 while afebrile), HR now controlled, continue --monitor closely Electrolyte and fluid disorders not elsewhere cl assified 02/16/2013 12/26/2015 DISPOSITION AND FOLLOW-UP 10/27/20122015 Overview: 32 yo female from [place]. Family involved with care, at bedside. plan to discharge patient home - will arrange with case management for post op care as needed - follow up in OPD in 7-10 days Post-op pain 10/27/2012 12/26/2015 Overview: currently well controlled with BOX FEEDER. will start PO pain meds today 10/27. tolerating percocet, pain relatively well controlled. Hodgkin's disease with nodular sclerosis 013 12/26/2015 Overview: Oncology history (per Dr. 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 Hodgkin's disease, unspecified 02/05/2012 0 05/11/2014 Vaginal bleeding 12/26/2015 Overview: --likely from thrombocytopenia. No menses in prior 8 months. Scant amount reported on 03/29 and 03/30, now resolved --monitor bleeding by counting pads --should f/u with her MODELING DIRECTOR provider after BMT Premature menopause 12/26/2015 Postmenopausal atrophic vaginitis 12/26/2015 Dyspareunia 12/26/2015 documented as of this encounter (statuses as of 12/12/2021) [facility] History of Past illness Narrative* Problem Noted Date Resolved Date Menorrhagia with regular cycle 03/15/2017 1 03/03/2017 Overview: Added automatically from request for surgery [id number] History of pulmonary embolism 04/25/2016 Neoplastic (malignant) [...] FOLLOW-UP 10/27/20122015 Overview: 32 yo female from [place]. Family involved with care, at bedside. plan to discharge patient home - will arrange with case management for post op care as needed - follow up in OPD in 7-10 days Post-op pain 10/27/2012 12/26/2015 Overview: currently well controlled with BOX FEEDER. will start PO pain meds today 10/27. tolerating percocet, pain relatively well controlled. Hodgkin's disease with nodular sclerosis 013 12/26/2015 Overview: Oncology history (per Dr. 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 Hodgkin's disease, unspecified 02/05/2012 0 05/11/2014 Vaginal bleeding 12/26/2015 Overview: --likely from thrombocytopenia. No menses in prior 8 months. Scant amount reported on 03/29 and 03/30, now resolved --monitor bleeding by counting pads --should f/u with her MODELING DIRECTOR provider after BMT Premature menopause 12/26/2015 Postmenopausal atrophic vaginitis 12/26/2015 Dyspareunia 12/26/2015 documented as of this encounter (statuses as of 12/18/2021) [facility] History of Past illness Narrative* Problem Noted Date Resolved Date Menorrhagia with regular cycle 03/15/2017 1 03/03/2017 Overview: Added automatically from request for surgery [id number] History of pulmonary embolism 04/25/2016 Neoplastic (malignant) [...] FOLLOW-UP 10/27/20122015 Overview: 32 yo female from [place]. Family involved with care, at bedside. plan to discharge patient home - will arrange with case management for post op care as needed - follow up in OPD in 7-10 days Post-op pain 10/27/2012 12/26/2015 Overview: currently well controlled with BOX FEEDER. will start PO pain meds today 10/27. tolerating percocet, pain relatively well controlled. Hodgkin's disease with nodular sclerosis 013 12/26/2015 Overview: Oncology history (per Dr. 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 Hodgkin's disease, unspecified 02/05/2012 0 05/11/2014 Vaginal bleeding 12/26/2015 Overview: --likely from thrombocytopenia. No menses in prior 8 months. Scant amount reported on 03/29 and 03/30, now resolved --monitor bleeding by counting pads --should f/u with her MODELING DIRECTOR provider after BMT Premature menopause 12/26/2015 Postmenopausal atrophic vaginitis 12/26/2015 Dyspareunia 12/26/2015 documented as of this encounter (statuses as of 12/19/2021) [facility] History of Past illness Narrative* Problem Noted Date Resolved Date Menorrhagia with regular cycle 03/15/2017 1 03/03/2017 Overview: Added automatically from request for surgery [id number] History of pulmonary embolism 04/25/2016 Neoplastic (malignant) [...] FOLLOW-UP 10/27/20122015 Overview: 32 yo female from [place]. Family involved with care, at bedside. plan to discharge patient home - will arrange with case management for post op care as needed - follow up in OPD in 7-10 days Post-op pain 10/27/2012 12/26/2015 Overview: currently well controlled with BOX FEEDER. will start PO pain meds today 10/27. tolerating percocet, pain relatively well controlled. Hodgkin's disease with nodular sclerosis 013 12/26/2015 Overview: Oncology history (per Dr. 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 Hodgkin's disease, unspecified 02/05/2012 0 05/11/2014 Vaginal bleeding 12/26/2015 Overview: --likely from thrombocytopenia. No menses in prior 8 months. Scant amount reported on 03/29 and 03/30, now resolved --monitor bleeding by counting pads --should f/u with her MODELING DIRECTOR provider after BMT Premature menopause 12/26/2015 Postmenopausal atrophic vaginitis 12/26/2015 Dyspareunia 12/26/2015 documented as of this encounter (statuses as of 12/27/2021) [facility] History of Past illness Narrative* Problem Noted Date Resolved Date Menorrhagia with regular cycle 03/15/2017 1 03/03/2017 Overview: Added automatically from request for surgery [id number] History of pulmonary embolism 04/25/2016 Neoplastic (malignant) [...] FOLLOW-UP 10/27/20122015 Overview: 32 yo female from [place]. Family involved with care, at bedside. plan to discharge patient home - will arrange with case management for post op care as needed - follow up in OPD in 7-10 days Post-op pain 10/27/2012 12/26/2015 Overview: currently well controlled with BOX FEEDER. will start PO pain meds today 10/27. tolerating percocet, pain relatively well controlled. Hodgkin's disease with nodular sclerosis 013 12/26/2015 Overview: Oncology history (per Dr. 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 Hodgkin's disease, unspecified 02/05/2012 0 05/11/2014 Vaginal bleeding 12/26/2015 Overview: --likely from thrombocytopenia. No menses in prior 8 months. Scant amount reported on 03/29 and 03/30, now resolved --monitor bleeding by counting pads --should f/u with her MODELING DIRECTOR provider after BMT Premature menopause 12/26/2015 Postmenopausal atrophic vaginitis 12/26/2015 Dyspareunia 12/26/2015 documented as of this encounter (statuses as of 12/31/2021) [facility] of Past illness Narrative* Problem Noted Date Resolved Date Menorrhagia with regular cycle 03/15/2017 1 03/03/2017 Overview: Added automatically from request for surgery [id number] History of pulmonary embolism 04/25/2016 Neoplastic (malignant) [...] FOLLOW-UP 10/27/20122015 Overview: 32 yo female from [place]. Family involved with care, at bedside. plan to discharge patient home - will arrange with case management for post op care as needed - follow up in OPD in 7-10 days Post-op pain 10/27/2012 12/26/2015 Overview: currently well controlled with BOX FEEDER. will start PO pain meds today 10/27. tolerating percocet, pain relatively well controlled. Hodgkin's disease with nodular sclerosis 013 12/26/2015 Overview: Oncology history (per Dr. 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 Hodgkin's disease, unspecified 02/05/2012 0 05/11/2014 Vaginal bleeding 12/26/2015 Overview: --likely from thrombocytopenia. No menses in prior 8 months. Scant amount reported on 03/29 and 03/30, now resolved --monitor bleeding by counting pads --should f/u with her MODELING DIRECTOR provider after BMT Premature menopause 12/26/2015 Postmenopausal atrophic vaginitis 12/26/2015 Dyspareunia 12/26/2015 documented as of this encounter (statuses as of 01/08/2022) [facility] of Past illness Narrative* Problem Noted Date Resolved Date Menorrhagia with regular cycle 03/15/2017 1 03/03/2017 Overview: Added automatically from request for surgery [id number] History of pulmonary embolism 04/25/2016 Neoplastic (malignant) [...] FOLLOW-UP 10/27/20122015 Overview: 32 yo female from [place]. Family involved with care, at bedside. plan to discharge patient home - will arrange with case management for post op care as needed - follow up in OPD in 7-10 days Post-op pain 10/27/2012 12/26/2015 Overview: currently well controlled with BOX FEEDER. will start PO pain meds today 10/27. tolerating percocet, pain relatively well controlled. Hodgkin's disease with nodular sclerosis 013 12/26/2015 Overview: Oncology history (per Dr. 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 Hodgkin's disease, unspecified 02/05/2012 0 05/11/2014 Vaginal bleeding 12/26/2015 Overview: --likely from thrombocytopenia. No menses in prior 8 months. Scant amount reported on 03/29 and 03/30, now resolved --monitor bleeding by counting pads --should f/u with her MODELING DIRECTOR provider after BMT Premature menopause 12/26/2015 Postmenopausal atrophic vaginitis 12/26/2015 Dyspareunia 12/26/2015 documented as of this encounter (statuses as of 01/16/2022) [facility] of Past illness Narrative* Problem Noted Date Resolved Date Menorrhagia with regular cycle 03/15/2017 1 03/03/2017 Overview: Added automatically from request for surgery [id number] History of pulmonary embolism 04/25/2016 Neoplastic (malignant) [...] FOLLOW-UP 10/27/20122015 Overview: 32 yo female from [place]. Family involved with care, at bedside. plan to discharge patient home - will arrange with case management for post op care as needed - follow up in OPD in 7-10 days Post-op pain 10/27/2012 12/26/2015 Overview: currently well controlled with BOX FEEDER. will start PO pain meds today 10/27. tolerating percocet, pain relatively well controlled. Hodgkin's disease with nodular sclerosis 013 12/26/2015 Overview: Oncology history (per Dr. 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 Hodgkin's disease, unspecified 02/05/2012 0 05/11/2014 Vaginal bleeding 12/26/2015 Overview: --likely from thrombocytopenia. No menses in prior 8 months. Scant amount reported on 03/29 and 03/30, now resolved --monitor bleeding by counting pads --should f/u with her MODELING DIRECTOR provider after BMT Premature menopause 12/26/2015 Postmenopausal atrophic vaginitis 12/26/2015 Dyspareunia 12/26/2015 documented as of this encounter (statuses as of 01/16/2022) [facility] Past illness Narrative* Problem Noted Date Resolved Date Menorrhagia with regular cycle 03/15/2017 1 03/03/2017 Overview: Added automatically from request for surgery [id number] History of pulmonary embolism 04/25/2016 Neoplastic (malignant) [...] FOLLOW-UP 10/27/20122015 Overview: 32 yo female from [place]. Family involved with care, at bedside. plan to discharge patient home - will arrange with case management for post op care as needed - follow up in OPD in 7-10 days Post-op pain 10/27/2012 12/26/2015 Overview: currently well controlled with BOX FEEDER. will start PO pain meds today 10/27. tolerating percocet, pain relatively well controlled. Hodgkin's disease with nodular sclerosis 013 12/26/2015 Overview: Oncology history (per Dr. 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 Hodgkin's disease, unspecified 02/05/2012 0 05/11/2014 Vaginal bleeding 12/26/2015 Overview: --likely from thrombocytopenia. No menses in prior 8 months. Scant amount reported on 03/29 and 03/30, now resolved --monitor bleeding by counting pads --should f/u with her MODELING DIRECTOR provider after BMT Premature menopause 12/26/2015 Postmenopausal atrophic vaginitis 12/26/2015 Dyspareunia 12/26/2015 documented as of this encounter (statuses as of 01/17/2022) [facility] Past illness Narrative* Problem Noted Date Resolved Date Menorrhagia with regular cycle 03/15/2017 1 03/03/2017 Overview: Added automatically from request for surgery [id number] History of pulmonary embolism 04/25/2016 Neoplastic (malignant) [...] FOLLOW-UP 10/27/20122015 Overview: 32 yo female from [place]. Family involved with care, at bedside. plan to discharge patient home - will arrange with case management for post op care as needed - follow up in OPD in 7-10 days Post-op pain 10/27/2012 12/26/2015 Overview: currently well controlled with BOX FEEDER. will start PO pain meds today 10/27. tolerating percocet, pain relatively well controlled. Hodgkin's disease with nodular sclerosis 013 12/26/2015 Overview: Oncology history (per Dr. 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 Hodgkin's disease, unspecified 02/05/2012 0 05/11/2014 Vaginal bleeding 12/26/2015 Overview: --likely from thrombocytopenia. No menses in prior 8 months. Scant amount reported on 03/29 and 03/30, now resolved --monitor bleeding by counting pads --should f/u with her MODELING DIRECTOR provider after BMT Premature menopause 12/26/2015 Postmenopausal atrophic vaginitis 12/26/2015 Dyspareunia 12/26/2015 documented as of this encounter (statuses as of 01/18/2022) [facility] Past [facility] Narrative* Problem Noted Date Resolved Date Menorrhagia with regular cycle 03/15/2017 1 03/03/2017 Overview: Added automatically from request for surgery [id number] History of pulmonary embolism 04/25/2016 Neoplastic (malignant) [...] FOLLOW-UP 10/27/20122015 Overview: 32 yo female from [place]. Family involved with care, at bedside. plan to discharge patient home - will arrange with case management for post op care as needed - follow up in OPD in 7-10 days Post-op pain 10/27/2012 12/26/2015 Overview: currently well controlled with BOX FE[employer]ER. will start PO pain meds today 10/27. tolerating percocet, pain relatively well controlled. Hodgkin's disease with nodular sclerosis 013 12/26/2015 Overview: Oncology history (per Dr. 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 Hodgkin's disease, unspecified 02/05/2012 0 05/11/2014 Vaginal bleeding 12/26/2015 Overview: --likely from thrombocytopenia. No menses in prior 8 months. Scant amount reported on 03/29 and 03/30, now resolved --monitor bleeding by counting pads --should f/u with her MODELING DIRECTOR provider after BMT Premature menopause 12/26/2015 Postmenopausal atrophic vaginitis 12/26/2015 Dyspareunia 12/26/2015 documented as of this encounter (statuses as of 01/20/2022) [facility] Past [facility] Narrative* Problem Noted Date Resolved Date Menorrhagia with regular cycle 03/15/2017 1 03/03/2017 Overview: Added automatically from request for surgery [id number] History of pulmonary embolism 04/25/2016 Neoplastic (malignant) [...] FOLLOW-UP 10/27/20122015 Overview: 32 yo female from [place]. Family involved with care, at bedside. plan to discharge patient home - will arrange with case management for post op care as needed - follow up in OPD in 7-10 days Post-op pain 10/27/2012 12/26/2015 Overview: currently well controlled with BOX FEEDER. will start PO pain meds today 10/27. tolerating percocet, pain relatively well controlled. Hodgkin's disease with nodular sclerosis 013 12/26/2015 Overview: Oncology history (per Dr. 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 Hodgkin's disease, unspecified 02/05/2012 0 05/11/2014 Vaginal bleeding 12/26/2015 Overview: --likely from thrombocytopenia. No menses in prior 8 months. Scant amount reported on 03/29 and 03/30, now resolved --monitor bleeding by counting pads --should f/u with her MODELING DIRECTOR provider after BMT Premature menopause 12/26/2015 Postmenopausal atrophic vaginitis 12/26/2015 Dyspareunia 12/26/2015 documented as of this encounter (statuses as of 01/22/2022) [facility] History of Past illness Narrative* Problem Noted Date Resolved Date Menorrhagia with regular cycle 03/15/2017 1 03/03/2017 Overview: Added automatically from request for surgery [id number] History of pulmonary embolism 04/25/2016 Neoplastic (malignant) [...] FOLLOW-UP 10/27/20122015 Overview: 32 yo female from [place]. Family involved with care, at bedside. plan to discharge patient home - will arrange with case management for post op care as needed - follow up in OPD in 7-10 days Post-op pain 10/27/2012 12/26/2015 Overview: currently well controlled with BOX FEEDER. will start PO pain meds today 10/27. tolerating percocet, pain relatively well controlled. Hodgkin's disease with nodular sclerosis 013 12/26/2015 Overview: Oncology history (per Dr. 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 Hodgkin's disease, unspecified 02/05/2012 0 05/11/2014 Vaginal bleeding 12/26/2015 Overview: --likely from thrombocytopenia. No menses in prior 8 months. Scant amount reported on 03/29 and 03/30, now resolved --monitor bleeding by counting pads --should f/u with her MODELING DIRECTOR provider after BMT Premature menopause 12/26/2015 Postmenopausal atrophic vaginitis 12/26/2015 Dyspareunia 12/26/2015 documented as of this encounter (statuses as of 01/25/2022) [facility] History of Past illness Narrative* Problem Noted Date Resolved Date Menorrhagia with regular cycle 03/15/2017 1 03/03/2017 Overview: Added automatically from request for surgery [id number] History of pulmonary embolism 04/25/2016 Neoplastic (malignant) [...] FOLLOW-UP 10/27/20122015 Overview: 32 yo female from [place]. Family involved with care, at bedside. plan to discharge patient home - will arrange with case management for post op care as needed - follow up in OPD in 7-10 days Post-op pain 10/27/2012 12/26/2015 Overview: currently well controlled with BOX FEEDER. will start PO pain meds today 10/27. tolerating percocet, pain relatively well controlled. Hodgkin's disease with nodular sclerosis 013 12/26/2015 Overview: Oncology history (per Dr. 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 Hodgkin's disease, unspecified 02/05/2012 0 05/11/2014 Vaginal bleeding 12/26/2015 Overview: --likely from thrombocytopenia. No menses in prior 8 months. Scant amount reported on 03/29 and 03/30, now resolved --monitor bleeding by counting pads --should f/u with her MODELING DIRECTOR provider after BMT Premature menopause 12/26/2015 Postmenopausal atrophic vaginitis 12/26/2015 Dyspareunia 12/26/2015 documented as of this encounter (statuses as of 02/11/2022) [facility] History of Past illness Narrative* Problem Noted Date Resolved Date Menorrhagia with regular cycle 03/15/2017 1 03/03/2017 Overview: Added automatically from request for surgery [id number] History of pulmonary embolism 04/25/2016 Neoplastic (malignant) [...] FOLLOW-UP 10/27/20122015 Overview: 32 yo female from [place]. Family involved with care, at bedside. plan to discharge patient home - will arrange with case management for post op care as needed - follow up in OPD in 7-10 days Post-op pain 10/27/2012 12/26/2015 Overview: currently well controlled with BOX FEEDER. will start PO pain meds today 10/27. tolerating percocet, pain relatively well controlled. Hodgkin's disease with nodular sclerosis 013 12/26/2015 Overview: Oncology history (per Dr. 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 Hodgkin's disease, unspecified 02/05/2012 0 05/11/2014 Vaginal bleeding 12/26/2015 Overview: --likely from thrombocytopenia. No menses in prior 8 months. Scant amount reported on 03/29 and 03/30, now resolved --monitor bleeding by counting pads --should f/u with her MODELING DIRECTOR provider after BMT Premature menopause 12/26/2015 Postmenopausal atrophic vaginitis 12/26/2015 Dyspareunia 12/26/2015 documented as of this encounter (statuses as of 02/21/2022) [facility] History of Past illness Narrative* Problem Noted Date Resolved Date Menorrhagia with regular cycle 03/15/2017 1 03/03/2017 Overview: Added automatically from request for surgery [id number] History of pulmonary embolism 04/25/2016 Neoplastic (malignant) [...] FOLLOW-UP 10/27/20122015 Overview: 32 yo female from [place]. Family involved with care, at bedside. plan to discharge patient home - will arrange with case management for post op care as needed - follow up in OPD in 7-10 days Post-op pain 10/27/2012 12/26/2015 Overview: currently well controlled with BOX FEEDER. will start PO pain meds today 10/27. tolerating percocet, pain relatively well controlled. Hodgkin's disease with nodular sclerosis 013 12/26/2015 Overview: Oncology history (per Dr. 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 Hodgkin's disease, unspecified 02/05/2012 0 05/11/2014 Vaginal bleeding 12/26/2015 Overview: --likely from thrombocytopenia. No menses in prior 8 months. Scant amount reported on 03/29 and 03/30, now resolved --monitor bleeding by counting pads --should f/u with her MODELING DIRECTOR provider after BMT Premature menopause 12/26/2015 Postmenopausal atrophic vaginitis 12/26/2015 Dyspareunia 12/26/2015 documented as of this encounter (statuses as of 03/06/2022) [facility] History of Past illness Narrative* Problem Noted Date Resolved Date Menorrhagia with regular cycle 03/15/2017 1 03/03/2017 Overview: Added automatically from request for surgery [id number] History of pulmonary embolism 04/25/2016 Neoplastic (malignant) [...] FOLLOW-UP 10/27/20122015 Overview: 32 yo female from [place]. Family involved with care, at bedside. plan to discharge patient home - will arrange with case management for post op care as needed - follow up in OPD in 7-10 days Post-op pain 10/27/2012 12/26/2015 Overview: currently well controlled with BOX FEEDER. will start PO pain meds today 10/27. tolerating percocet, pain relatively well controlled. Hodgkin's disease with nodular sclerosis 013 12/26/2015 Overview: Oncology history (per Dr. 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 Hodgkin's disease, unspecified 02/05/2012 0 05/11/2014 Vaginal bleeding 12/26/2015 Overview: --likely from thrombocytopenia. No menses in prior 8 months. Scant amount reported on 03/29 and 03/30, now resolved --monitor bleeding by counting pads --should f/u with her MODELING DIRECTOR provider after BMT Premature menopause 12/26/2015 Postmenopausal atrophic vaginitis 12/26/2015 Dyspareunia 12/26/2015 documented as of this encounter (statuses as of 03/07/2022) [facility] History of Past illness Narrative* Problem Noted Date Resolved Date Menorrhagia with regular cycle 03/15/2017 1 03/03/2017 Overview: Added automatically from request for surgery [id number] History of pulmonary embolism 04/25/2016 Neoplastic (malignant) [...] FOLLOW-UP 10/27/20122015 Overview: 32 yo female from [place]. Family involved with care, at bedside. plan to discharge patient home - will arrange with case management for post op care as needed - follow up in OPD in 7-10 days Post-op pain 10/27/2012 12/26/2015 Overview: currently well controlled with BOX FEEDER. will start PO pain meds today 10/27. tolerating percocet, pain relatively well controlled. Hodgkin's disease with nodular sclerosis 013 12/26/2015 Overview: Oncology history (per Dr. 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 Hodgkin's disease, unspecified 02/05/2012 0 05/11/2014 Vaginal bleeding 12/26/2015 Overview: --likely from thrombocytopenia. No menses in prior 8 months. Scant amount reported on 03/29 and 03/30, now resolved --monitor bleeding by counting pads --should f/u with her MODELING DIRECTOR provider after BMT Premature menopause 12/26/2015 Postmenopausal atrophic vaginitis 12/26/2015 Dyspareunia 12/26/2015 documented as of this encounter (statuses as of 03/07/2022) [facility] of Past illness Narrative* Problem Noted Date Resolved Date Menorrhagia with regular cycle 03/15/2017 1 03/03/2017 Overview: Added automatically from request for surgery [id number] History of pulmonary embolism 04/25/2016 Neoplastic (malignant) [...] FOLLOW-UP 10/27/20122015 Overview: 32 yo female from [place]. Family involved with care, at bedside. plan to discharge patient home - will arrange with case management for post op care as needed - follow up in OPD in 7-10 days Post-op pain 10/27/2012 12/26/2015 Overview: currently well controlled with BOX FEEDER. will start PO pain meds today 10/27. tolerating percocet, pain relatively well controlled. Hodgkin's disease with nodular sclerosis 013 12/26/2015 Overview: Oncology history (per Dr. 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 Hodgkin's disease, unspecified 02/05/2012 0 05/11/2014 Vaginal bleeding 12/26/2015 Overview: --likely from thrombocytopenia. No menses in prior 8 months. Scant amount reported on 03/29 and 03/30, now resolved --monitor bleeding by counting pads --should f/u with her MODELING DIRECTOR provider after BMT Premature menopause 12/26/2015 Postmenopausal atrophic vaginitis 12/26/2015 Dyspareunia 12/26/2015 documented as of this encounter (statuses as of 03/15/2022) [facility] History of Past illness Narrative* Problem Noted Date Resolved Date Menorrhagia with regular cycle 03/15/2017 1 03/03/2017 Overview: Added automatically from request for surgery [id number] History of pulmonary embolism 04/25/2016 Neoplastic (malignant) [...] FOLLOW-UP 10/27/20122015 Overview: 32 yo female from [place]. Family involved with care, at bedside. plan to discharge patient home - will arrange with case management for post op care as needed - follow up in OPD in 7-10 days Post-op pain 10/27/2012 12/26/2015 Overview: currently well controlled with BOX FEEDER. will start PO pain meds today 10/27. tolerating percocet, pain relatively well controlled. Hodgkin's disease with nodular sclerosis 013 12/26/2015 Overview: Oncology history (per Dr. 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 Hodgkin's disease, unspecified 02/05/2012 0 05/11/2014 Vaginal bleeding 12/26/2015 Overview: --likely from thrombocytopenia. No menses in prior 8 months. Scant amount reported on 03/29 and 03/30, now resolved --monitor bleeding by counting pads --should f/u with her MODELING DIRECTOR provider after BMT Premature menopause 12/26/2015 Postmenopausal atrophic vaginitis 12/26/2015 Dyspareunia 12/26/2015 documented as of this encounter (statuses as of 03/15/2022) [facility] of Past illness Narrative* Problem Noted Date Resolved Date Menorrhagia with regular cycle 03/15/2017 1 03/03/2017 Overview: Added automatically from request for surgery [id number] History of pulmonary embolism 04/25/2016 Neoplastic (malignant) [...] FOLLOW-UP 10/27/20122015 Overview: 32 yo female from [place]. Family involved with care, at bedside. plan to discharge patient home - will arrange with case management for post op care as needed - follow up in OPD in 7-10 days Post-op pain 10/27/2012 12/26/2015 Overview: currently well controlled with BOX FEEDER. will start PO pain meds today 10/27. tolerating percocet, pain relatively well controlled. Hodgkin's disease with nodular sclerosis 013 12/26/2015 Overview: Oncology history (per Dr. 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 Hodgkin's disease, unspecified 02/05/2012 0 05/11/2014 Vaginal bleeding 12/26/2015 Overview: --likely from thrombocytopenia. No menses in prior 8 months. Scant amount reported on 03/29 and 03/30, now resolved --monitor bleeding by counting pads --should f/u with her MODELING DIRECTOR provider after BMT Premature menopause 12/26/2015 Postmenopausal atrophic vaginitis 12/26/2015 Dyspareunia 12/26/2015 documented as of this encounter (statuses as of 03/19/2022) [facility] of Past illness Narrative* Problem Noted Date Resolved Date Menorrhagia with regular cycle 03/15/2017 1 03/03/2017 Overview: Added automatically from request for surgery [id number] History of pulmonary embolism 04/25/2016 Neoplastic (malignant) [...] FOLLOW-UP 10/27/20122015 Overview: 32 yo female from [place]. Family involved with care, at bedside. plan to discharge patient home - will arrange with case management for post op care as needed - follow up in OPD in 7-10 days Post-op pain 10/27/2012 12/26/2015 Overview: currently well controlled with BOX FEEDER. will start PO pain meds today 10/27. tolerating percocet, pain relatively well controlled. Hodgkin's disease with nodular sclerosis 013 12/26/2015 Overview: Oncology history (per Dr. 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 Hodgkin's disease, unspecified 02/05/2012 0 05/11/2014 Vaginal bleeding 12/26/2015 Overview: --likely from thrombocytopenia. No menses in prior 8 months. Scant amount reported on 03/29 and 03/30, now resolved --monitor bleeding by counting pads --should f/u with her MODELING DIRECTOR provider after BMT Premature menopause 12/26/2015 Postmenopausal atrophic vaginitis 12/26/2015 Dyspareunia 12/26/2015 documented as of this encounter (statuses as of 03/22/2022) [facility] of Past illness Narrative* Problem Noted Date Resolved Date Menorrhagia with regular cycle 03/15/2017 1 03/03/2017 Overview: Added automatically from request for surgery [id number] History of pulmonary embolism 04/25/2016 Neoplastic (malignant) [...] FOLLOW-UP 10/27/20122015 Overview: 32 yo female from [place]. Family involved with care, at bedside. plan to discharge patient home - will arrange with case management for post op care as needed - follow up in OPD in 7-10 days Post-op pain 10/27/2012 12/26/2015 Overview: currently well controlled with BOX FEEDER. will start PO pain meds today 10/27. tolerating percocet, pain relatively well controlled. Hodgkin's disease with nodular sclerosis 013 12/26/2015 Overview: Oncology history (per Dr. 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 Hodgkin's disease, unspecified 02/05/2012 0 05/11/2014 Vaginal bleeding 12/26/2015 Overview: --likely from thrombocytopenia. No menses in prior 8 months. Scant amount reported on 03/29 and 03/30, now resolved --monitor bleeding by counting pads --should f/u with her MODELING DIRECTOR provider after BMT Premature menopause 12/26/2015 Postmenopausal atrophic vaginitis 12/26/2015 Dyspareunia 12/26/2015 documented as of this encounter (statuses as of 03/23/2022) [facility] Past illness Narrative* Problem Noted Date Resolved Date Menorrhagia with regular cycle 03/15/2017 1 03/03/2017 Overview: Added automatically from request for surgery [id number] History of pulmonary embolism 04/25/2016 Neoplastic (malignant) [...] FOLLOW-UP 10/27/20122015 Overview: 32 yo female from [place]. Family involved with care, at bedside. plan to discharge patient home - will arrange with case management for post op care as needed - follow up in OPD in 7-10 days Post-op pain 10/27/2012 12/26/2015 Overview: currently well controlled with BOX FEEDER. will start PO pain meds today 10/27. tolerating percocet, pain relatively well controlled. Hodgkin's disease with nodular sclerosis 013 12/26/2015 Overview: Oncology history (per Dr. 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 Hodgkin's disease, unspecified 02/05/2012 0 05/11/2014 Vaginal bleeding 12/26/2015 Overview: --likely from thrombocytopenia. No menses in prior 8 months. Scant amount reported on 03/29 and 03/30, now resolved --monitor bleeding by counting pads --should f/u with her MODELING DIRECTOR provider after BMT Premature menopause 12/26/2015 Postmenopausal atrophic vaginitis 12/26/2015 Dyspareunia 12/26/2015 documented as of this encounter (statuses as of 03/24/2022) [facility] Past illness Narrative* Problem Noted Date Resolved Date Menorrhagia with regular cycle 03/15/2017 1 03/03/2017 Overview: Added automatically from request for surgery [id number] History of pulmonary embolism 04/25/2016 Neoplastic (malignant) [...] FOLLOW-UP 10/27/20122015 Overview: 32 yo female from [place]. Family involved with care, at bedside. plan to discharge patient home - will arrange with case management for post op care as needed - follow up in OPD in 7-10 days Post-op pain 10/27/2012 12/26/2015 Overview: currently well controlled with BOX FEEDER. will start PO pain meds today 10/27. tolerating percocet, pain relatively well controlled. Hodgkin's disease with nodular sclerosis 013 12/26/2015 Overview: Oncology history (per Dr. 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 Hodgkin's disease, unspecified 02/05/2012 0 05/11/2014 Vaginal bleeding 12/26/2015 Overview: --likely from thrombocytopenia. No menses in prior 8 months. Scant amount reported on 03/29 and 03/30, now resolved --monitor bleeding by counting pads --should f/u with her MODELING DIRECTOR provider after BMT Premature menopause 12/26/2015 Postmenopausal atrophic vaginitis 12/26/2015 Dyspareunia 12/26/2015 documented as of this encounter (statuses as of 03/26/2022) [place] [id number] History of Past illness Narrative* Problem Noted Date Resolved Date Menorrhagia with regular cycle 03/15/2017 1 03/03/2017 Overview: Added automatically from request for surgery [id number] History of pulmonary embolism 04/25/2016 Neoplastic (malignant) [...] FOLLOW-UP 10/27/20122015 Overview: 32 yo female from [place]. Family involved with care, at bedside. plan to discharge patient home - will arrange with case management for post op care as needed - follow up in OPD in 7-10 days Post-op pain 10/27/2012 12/26/2015 Overview: currently well controlled with BOX FEEDER. will start PO pain meds today 10/27. tolerating percocet, pain relatively well controlled. Hodgkin's disease with nodular sclerosis 013 12/26/2015 Overview: Oncology history (per Dr. 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 Hodgkin's disease, unspecified 02/05/2012 0 05/11/2014 Vaginal bleeding 12/26/2015 Overview: --likely from thrombocytopenia. No menses in prior 8 months. Scant amount reported on 03/29 and 03/30, now resolved --monitor bleeding by counting pads --should f/u with her MODELING DIRECTOR provider after BMT Premature menopause 12/26/2015 Postmenopausal atrophic vaginitis 12/26/2015 Dyspareunia 12/26/2015 documented as of this encounter (statuses as of 03/30/2022) [facility] Past [facility] Narrative* Problem Noted Date Resolved Date Menorrhagia with regular cycle 03/15/2017 1 03/03/2017 Overview: Added automatically from request for surgery [id number] History of pulmonary embolism 04/25/2016 Neoplastic (malignant) [...] FOLLOW-UP 10/27/20122015 Overview: 32 yo female from [place]. Family involved with care, at bedside. plan to discharge patient home - will arrange with case management for post op care as needed - follow up in OPD in 7-10 days Post-op pain 10/27/2012 12/26/2015 Overview: currently well controlled with BOX FEEDER. will start PO pain meds today 10/27. tolerating percocet, pain relatively well controlled. Hodgkin's disease with nodular sclerosis 013 12/26/2015 Overview: Oncology history (per Dr. 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 Hodgkin's disease, unspecified 02/05/2012 0 05/11/2014 Vaginal bleeding 12/26/2015 Overview: --likely from thrombocytopenia. No menses in prior 8 months. Scant amount reported on 03/29 and 03/30, now resolved --monitor bleeding by counting pads --should f/u with her MODELING DIRECTOR provider after BMT Premature menopause 12/26/2015 Postmenopausal atrophic vaginitis 12/26/2015 Dyspareunia 12/26/2015 documented as of this encounter (statuses as of 04/01/2022) [facility] History of Past illness Narrative* Problem Noted Date Resolved Date Menorrhagia with regular cycle 03/15/2017 1 03/03/2017 Overview: Added automatically from request for surgery [id number] History of pulmonary embolism 04/25/2016 Neoplastic (malignant) [...] FOLLOW-UP 10/27/20122015 Overview: 32 yo female from [place]. Family involved with care, at bedside. plan to discharge patient home - will arrange with case management for post op care as needed - follow up in OPD in 7-10 days Post-op pain 10/27/2012 12/26/2015 Overview: currently well controlled with BOX FEEDER. will start PO pain meds today 10/27. tolerating percocet, pain relatively well controlled. Hodgkin's disease with nodular sclerosis 013 12/26/2015 Overview: Oncology history (per Dr. 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 Hodgkin's disease, unspecified 02/05/2012 0 05/11/2014 Vaginal bleeding 12/26/2015 Overview: --likely from thrombocytopenia. No menses in prior 8 months. Scant amount reported on 03/29 and 03/30, now resolved --monitor bleeding by counting pads --should f/u with her MODELING DIRECTOR provider after BMT Premature menopause 12/26/2015 Postmenopausal atrophic vaginitis 12/26/2015 Dyspareunia 12/26/2015 documented as of this encounter (statuses as of 04/10/2022) [facility] History of Past illness Narrative* Problem Noted Date Resolved Date Menorrhagia with regular cycle 03/15/2017 1 03/03/2017 Overview: Added automatically from request for surgery [id number] History of pulmonary embolism 04/25/2016 Neoplastic (malignant) [...] FOLLOW-UP 10/27/20122015 Overview: 32 yo female from [place]. Family involved with care, at bedside. plan to discharge patient home - will arrange with case management for post op care as needed - follow up in OPD in 7-10 days Post-op pain 10/27/2012 12/26/2015 Overview: currently well controlled with BOX FEEDER. will start PO pain meds today 10/27. tolerating percocet, pain relatively well controlled. Hodgkin's disease with nodular sclerosis 013 12/26/2015 Overview: Oncology history (per Dr. 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 Hodgkin's disease, unspecified 02/05/2012 0 05/11/2014 Vaginal bleeding 12/26/2015 Overview: --likely from thrombocytopenia. No menses in prior 8 months. Scant amount reported on 03/29 and 03/30, now resolved --monitor bleeding by counting pads --should f/u with her MODELING DIRECTOR provider after BMT Premature menopause 12/26/2015 Postmenopausal atrophic vaginitis 12/26/2015 Dyspareunia 12/26/2015 documented as of this encounter (statuses as of 04/16/2022) [facility] History of Past illness Narrative* Problem Noted Date Resolved Date Menorrhagia with regular cycle 03/15/2017 1 03/03/2017 Overview: Added automatically from request for surgery [id number] History of pulmonary embolism 04/25/2016 Neoplastic (malignant) [...] FOLLOW-UP 10/27/20122015 Overview: 32 yo female from [place]. Family involved with care, at bedside. plan to discharge patient home - will arrange with case management for post op care as needed - follow up in OPD in 7-10 days Post-op pain 10/27/2012 12/26/2015 Overview: currently well controlled with BOX FEEDER. will start PO pain meds today 10/27. tolerating percocet, pain relatively well controlled. Hodgkin's disease with nodular sclerosis 013 12/26/2015 Overview: Oncology history (per Dr. 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 Hodgkin's disease, unspecified 02/05/2012 0 05/11/2014 Vaginal bleeding 12/26/2015 Overview: --likely from thrombocytopenia. No menses in prior 8 months. Scant amount reported on 03/29 and 03/30, now resolved --monitor bleeding by counting pads --should f/u with her MODELING DIRECTOR provider after BMT Premature menopause 12/26/2015 Postmenopausal atrophic vaginitis 12/26/2015 Dyspareunia 12/26/2015 documented as of this encounter (statuses as of 04/17/2022) [facility] History of Past illness Narrative* Problem Noted Date Resolved Date Menorrhagia with regular cycle 03/15/2017 1 03/03/2017 Overview: Added automatically from request for surgery [id number] History of pulmonary embolism 04/25/2016 Neoplastic (malignant) [...] FOLLOW-UP 10/27/20122015 Overview: 32 yo female from [place]. Family involved with care, at bedside. plan to discharge patient home - will arrange with case management for post op care as needed - follow up in OPD in 7-10 days Post-op pain 10/27/2012 12/26/2015 Overview: currently well controlled with BOX FEEDER. will start PO pain meds today 10/27. tolerating percocet, pain relatively well controlled. Hodgkin's disease with nodular sclerosis 013 12/26/2015 Overview: Oncology history (per Dr. 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 Hodgkin's disease, unspecified 02/05/2012 0 05/11/2014 Vaginal bleeding 12/26/2015 Overview: --likely from thrombocytopenia. No menses in prior 8 months. Scant amount reported on 03/29 and 03/30, now resolved --monitor bleeding by counting pads --should f/u with her MODELING DIRECTOR provider after BMT Premature menopause 12/26/2015 Postmenopausal atrophic vaginitis 12/26/2015 Dyspareunia 12/26/2015 documented as of this encounter (statuses as of 04/20/2022) [facility] History of Past illness Narrative* Problem Noted Date Resolved Date Menorrhagia with regular cycle 03/15/2017 1 03/03/2017 Overview: Added automatically from request for surgery [id number] History of pulmonary embolism 04/25/2016 Neoplastic (malignant) [...] FOLLOW-UP 10/27/20122015 Overview: 32 yo female from [place]. Family involved with care, at bedside. plan to discharge patient home - will arrange with case management for post op care as needed - follow up in OPD in 7-10 days Post-op pain 10/27/2012 12/26/2015 Overview: currently well controlled with BOX FEEDER. will start PO pain meds today 10/27. tolerating percocet, pain relatively well controlled. Hodgkin's disease with nodular sclerosis 013 12/26/2015 Overview: Oncology history (per Dr. 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 Hodgkin's disease, unspecified 02/05/2012 0 05/11/2014 Vaginal bleeding 12/26/2015 Overview: --likely from thrombocytopenia. No menses in prior 8 months. Scant amount reported on 03/29 and 03/30, now resolved --monitor bleeding by counting pads --should f/u with her MODELING DIRECTOR provider after BMT Premature menopause 12/26/2015 Postmenopausal atrophic vaginitis 12/26/2015 Dyspareunia 12/26/2015 documented as of this encounter (statuses as of 04/23/2022) [facility] History of Past illness Narrative* Problem Noted Date Resolved Date Menorrhagia with regular cycle 03/15/2017 1 03/03/2017 Overview: Added automatically from request for surgery [id number] History of pulmonary embolism 04/25/2016 Neoplastic (malignant) [...] FOLLOW-UP 10/27/20122015 Overview: 32 yo female from [place]. Family involved with care, at bedside. plan to discharge patient home - will arrange with case management for post op care as needed - follow up in OPD in 7-10 days Post-op pain 10/27/2012 12/26/2015 Overview: currently well controlled with BOX FEEDER. will start PO pain meds today 10/27. tolerating percocet, pain relatively well controlled. Hodgkin's disease with nodular sclerosis 013 12/26/2015 Overview: Oncology history (per Dr. 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 Hodgkin's disease, unspecified 02/05/2012 0 05/11/2014 Vaginal bleeding 12/26/2015 Overview: --likely from thrombocytopenia. No menses in prior 8 months. Scant amount reported on 03/29 and 03/30, now resolved --monitor bleeding by counting pads --should f/u with her MODELING DIRECTOR provider after BMT Premature menopause 12/26/2015 Postmenopausal atrophic vaginitis 12/26/2015 Dyspareunia 12/26/2015 documented as of this encounter (statuses as of 04/23/2022) [facility] History of Past illness Narrative* Problem Noted Date Resolved Date Menorrhagia with regular cycle 03/15/2017 1 03/03/2017 Overview: Added automatically from request for surgery [id number] History of pulmonary embolism 04/25/2016 Neoplastic (malignant) [...] FOLLOW-UP 10/27/20122015 Overview: 32 yo female from [place]. Family involved with care, at bedside. plan to discharge patient home - will arrange with case management for post op care as needed - follow up in OPD in 7-10 days Post-op pain 10/27/2012 12/26/2015 Overview: currently well controlled with BOX FEEDER. will start PO pain meds today 10/27. tolerating percocet, pain relatively well controlled. Hodgkin's disease with nodular sclerosis 013 12/26/2015 Overview: Oncology history (per Dr. 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 Hodgkin's disease, unspecified 02/05/2012 0 05/11/2014 Vaginal bleeding 12/26/2015 Overview: --likely from thrombocytopenia. No menses in prior 8 months. Scant amount reported on 03/29 and 03/30, now resolved --monitor bleeding by counting pads --should f/u with her MODELING DIRECTOR provider after BMT Premature menopause 12/26/2015 Postmenopausal atrophic vaginitis 12/26/2015 Dyspareunia 12/26/2015 documented as of this encounter (statuses as of 04/25/2022) [facility] History of Past illness Narrative* Problem Noted Date Resolved Date Menorrhagia with regular cycle 03/15/2017 1 03/03/2017 Overview: Added automatically from request for surgery [id number] History of pulmonary embolism 04/25/2016 Neoplastic (malignant) [...] FOLLOW-UP 10/27/20122015 Overview: 32 yo female from [place]. Family involved with care, at bedside. plan to discharge patient home - will arrange with case management for post op care as needed - follow up in OPD in 7-10 days Post-op pain 10/27/2012 12/26/2015 Overview: currently well controlled with BOX FEEDER. will start PO pain meds today 10/27. tolerating percocet, pain relatively well controlled. Hodgkin's disease with nodular sclerosis 013 12/26/2015 Overview: Oncology history (per Dr. 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 Hodgkin's disease, unspecified 02/05/2012 0 05/11/2014 Vaginal bleeding 12/26/2015 Overview: --likely from thrombocytopenia. No menses in prior 8 months. Scant amount reported on 03/29 and 03/30, now resolved --monitor bleeding by counting pads --should f/u with her MODELING DIRECTOR provider after BMT Premature menopause 12/26/2015 Postmenopausal atrophic vaginitis 12/26/2015 Dyspareunia 12/26/2015 documented as of this encounter (statuses as of 05/01/2022) [facility] of Past illness Narrative* Problem Noted Date Resolved Date Menorrhagia with regular cycle 03/15/2017 1 03/03/2017 Overview: Added automatically from request for surgery [id number] History of pulmonary embolism 04/25/2016 Neoplastic (malignant) [...] FOLLOW-UP 10/27/20122015 Overview: 32 yo female from [place]. Family involved with care, at bedside. plan to discharge patient home - will arrange with case management for post op care as needed - follow up in OPD in 7-10 days Post-op pain 10/27/2012 12/26/2015 Overview: currently well controlled with BOX FEEDER. will start PO pain meds today 10/27. tolerating percocet, pain relatively well controlled. Hodgkin's disease with nodular sclerosis 013 12/26/2015 Overview: Oncology history (per Dr. 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 Hodgkin's disease, unspecified 02/05/2012 0 05/11/2014 Vaginal bleeding 12/26/2015 Overview: --likely from thrombocytopenia. No menses in prior 8 months. Scant amount reported on 03/29 and 03/30, now resolved --monitor bleeding by counting pads --should f/u with her MODELING DIRECTOR provider after BMT Premature menopause 12/26/2015 Postmenopausal atrophic vaginitis 12/26/2015 Dyspareunia 12/26/2015 documented as of this encounter (statuses as of 05/15/2022) [facility] of Past illness Narrative* Problem Noted Date Resolved Date Menorrhagia with regular cycle 03/15/2017 1 03/03/2017 Overview: Added automatically from request for surgery [id number] History of pulmonary embolism 04/25/2016 Neoplastic (malignant) [...] FOLLOW-UP 10/27/20122015 Overview: 32 yo female from [place]. Family involved with care, at bedside. plan to discharge patient home - will arrange with case management for post op care as needed - follow up in OPD in 7-10 days Post-op pain 10/27/2012 12/26/2015 Overview: currently well controlled with BOX FEEDER. will start PO pain meds today 10/27. tolerating percocet, pain relatively well controlled. Hodgkin's disease with nodular sclerosis 013 12/26/2015 Overview: Oncology history (per Dr. 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 Hodgkin's disease, unspecified 02/05/2012 0 05/11/2014 Vaginal bleeding 12/26/2015 Overview: --likely from thrombocytopenia. No menses in prior 8 months. Scant amount reported on 03/29 and 03/30, now resolved --monitor bleeding by counting pads --should f/u with her MODELING DIRECTOR provider after BMT Premature menopause 12/26/2015 Postmenopausal atrophic vaginitis 12/26/2015 Dyspareunia 12/26/2015 documented as of this encounter (statuses as of 05/21/2022) [facility] of Past illness Narrative* Problem Noted Date Resolved Date Menorrhagia with regular cycle 03/15/2017 1 03/03/2017 Overview: Added automatically from request for surgery [id number] History of pulmonary embolism 04/25/2016 Neoplastic (malignant) [...] FOLLOW-UP 10/27/20122015 Overview: 32 yo female from [place]. Family involved with care, at bedside. plan to discharge patient home - will arrange with case management for post op care as needed - follow up in OPD in 7-10 days Post-op pain 10/27/2012 12/26/2015 Overview: currently well controlled with BOX FEEDER. will start PO pain meds today 10/27. tolerating percocet, pain relatively well controlled. Hodgkin's disease with nodular sclerosis 013 12/26/2015 Overview: Oncology history (per Dr. 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 Hodgkin's disease, unspecified 02/05/2012 0 05/11/2014 Vaginal bleeding 12/26/2015 Overview: --likely from thrombocytopenia. No menses in prior 8 months. Scant amount reported on 03/29 and 03/30, now resolved --monitor bleeding by counting pads --should f/u with her MODELING DIRECTOR provider after BMT Premature menopause 12/26/2015 Postmenopausal atrophic vaginitis 12/26/2015 Dyspareunia 12/26/2015 documented as of this encounter (statuses as of 05/21/2022) [facility] of Past illness Narrative* Problem Noted Date Resolved Date Menorrhagia with regular cycle 03/15/2017 1 03/03/2017 Overview: Added automatically from request for surgery [id number] History of pulmonary embolism 04/25/2016 Neoplastic (malignant) [...] FOLLOW-UP 10/27/20122015 Overview: 32 yo female from [place]. Family involved with care, at bedside. plan to discharge patient home - will arrange with case management for post op care as needed - follow up in OPD in 7-10 days Post-op pain 10/27/2012 12/26/2015 Overview: currently well controlled with BOX FEEDER. will start PO pain meds today 10/27. tolerating percocet, pain relatively well controlled. Hodgkin's disease with nodular sclerosis 013 12/26/2015 Overview: Oncology history (per Dr. 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 Hodgkin's disease, unspecified 02/05/2012 0 05/11/2014 Vaginal bleeding 12/26/2015 Overview: --likely from thrombocytopenia. No menses in prior 8 months. Scant amount reported on 03/29 and 03/30, now resolved --monitor bleeding by counting pads --should f/u with her MODELING DIRECTOR provider after BMT Premature menopause 12/26/2015 Postmenopausal atrophic vaginitis 12/26/2015 Dyspareunia 12/26/2015 documented as of this encounter (statuses as of 06/11/2022) [facility] Narrative* Problem Noted Date Resolved Date Menorrhagia with regular cycle 03/15/2017 1 03/03/2017 Overview: Added automatically from request for surgery [id number] History of pulmonary embolism 04/25/2016 Neoplastic (malignant) [...] FOLLOW-UP 10/27/20122015 Overview: 32 yo female from [place]. Family involved with care, at bedside. plan to discharge patient home - will arrange with case management for post op care as needed - follow up in OPD in 7-10 days Post-op pain 10/27/2012 12/26/2015 Overview: currently well controlled with BOX FEEDER. will start PO pain meds today 10/27. tolerating percocet, pain relatively well controlled. Hodgkin's disease with nodular sclerosis 013 12/26/2015 Overview: Oncology history (per Dr. 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 Hodgkin's disease, unspecified 02/05/2012 0 05/11/2014 Vaginal bleeding 12/26/2015 Overview: --likely from thrombocytopenia. No menses in prior 8 months. Scant amount reported on 03/29 and 03/30, now resolved --monitor bleeding by counting pads --should f/u with her MODELING DIRECTOR provider after BMT Premature menopause 12/26/2015 Postmenopausal atrophic vaginitis 12/26/2015 Dyspareunia 12/26/2015 documented as of this encounter (statuses as of 06/12/2022) [facility] of Past illness Narrative* Problem Noted Date Resolved Date Menorrhagia with regular cycle 03/15/2017 1 03/03/2017 Overview: Added automatically from request for surgery [id number] History of pulmonary embolism 04/25/2016 Neoplastic (malignant) [...] FOLLOW-UP 10/27/20122015 Overview: 32 yo female from [place]. Family involved with care, at bedside. plan to discharge patient home - will arrange with case management for post op care as needed - follow up in OPD in 7-10 days Post-op pain 10/27/2012 12/26/2015 Overview: currently well controlled with BOX FEEDER. will start PO pain meds today 10/27. tolerating percocet, pain relatively well controlled. Hodgkin's disease with nodular sclerosis 013 12/26/2015 Overview: Oncology history (per Dr. 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 Hodgkin's disease, unspecified 02/05/2012 0 05/11/2014 Vaginal bleeding 12/26/2015 Overview: --likely from thrombocytopenia. No menses in prior 8 months. Scant amount reported on 03/29 and 03/30, now resolved --monitor bleeding by counting pads --should f/u with her MODELING DIRECTOR provider after BMT Premature menopause 12/26/2015 Postmenopausal atrophic vaginitis 12/26/2015 Dyspareunia 12/26/2015 documented as of this encounter (statuses as of 06/12/2022) [facility] Past [facility] Narrative* Problem Noted Date Resolved Date Menorrhagia with regular cycle 03/15/2017 1 03/03/2017 Overview: Added automatically from request for surgery [id number] History of pulmonary embolism 04/25/2016 Neoplastic (malignant) [...] FOLLOW-UP 10/27/20122015 Overview: 32 yo female from [place]. Family involved with care, at bedside. plan to discharge patient home - will arrange with case management for post op care as needed - follow up in OPD in 7-10 days Post-op pain 10/27/2012 12/26/2015 Overview: currently well controlled with BOX FEEDER. will start PO pain meds today 10/27. tolerating percocet, pain relatively well controlled. Hodgkin's disease with nodular sclerosis 013 12/26/2015 Overview: Oncology history (per Dr. 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 Hodgkin's disease, unspecified 02/05/2012 0 05/11/2014 Vaginal bleeding 12/26/2015 Overview: --likely from thrombocytopenia. No menses in prior 8 months. Scant amount reported on 03/29 and 03/30, now resolved --monitor bleeding by counting pads --should f/u with her MODELING DIRECTOR provider after BMT Premature menopause 12/26/2015 Postmenopausal atrophic vaginitis 12/26/2015 Dyspareunia 12/26/2015 documented as of this encounter (statuses as of 06/12/2022) [facility] History of Past illness Narrative* Problem Noted Date Resolved Date Menorrhagia with regular cycle 03/15/2017 1 03/03/2017 Overview: Added automatically from request for surgery [id number] History of pulmonary embolism 04/25/2016 Neoplastic (malignant) [...] FOLLOW-UP 10/27/20122015 Overview: 32 yo female from [place]. Family involved with care, at bedside. plan to discharge patient home - will arrange with case management for post op care as needed - follow up in OPD in 7-10 days Post-op pain 10/27/2012 12/26/2015 Overview: currently well controlled with BOX FEEDER. will start PO pain meds today 10/27. tolerating percocet, pain relatively well controlled. Hodgkin's disease with nodular sclerosis 013 12/26/2015 Overview: Oncology history (per Dr. 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 Hodgkin's disease, unspecified 02/05/2012 0 05/11/2014 Vaginal bleeding 12/26/2015 Overview: --likely from thrombocytopenia. No menses in prior 8 months. Scant amount reported on 03/29 and 03/30, now resolved --monitor bleeding by counting pads --should f/u with her MODELING DIRECTOR provider after BMT Premature menopause 12/26/2015 Postmenopausal atrophic vaginitis 12/26/2015 Dyspareunia 12/26/2015 documented as of this encounter (statuses as of 06/15/2022) [facility] History of Past illness Narrative* Problem Noted Date Resolved Date Menorrhagia with regular cycle 03/15/2017 1 03/03/2017 Overview: Added automatically from request for surgery [id number] History of pulmonary embolism 04/25/2016 Neoplastic (malignant) [...] FOLLOW-UP 10/27/20122015 Overview: 32 yo female from [place]. Family involved with care, at bedside. plan to discharge patient home - will arrange with case management for post op care as needed - follow up in OPD in 7-10 days Post-op pain 10/27/2012 12/26/2015 Overview: currently well controlled with BOX FEEDER. will start PO pain meds today 10/27. tolerating percocet, pain relatively well controlled. Hodgkin's disease with nodular sclerosis 013 12/26/2015 Overview: Oncology history (per Dr. 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 Hodgkin's disease, unspecified 02/05/2012 0 05/11/2014 Vaginal bleeding 12/26/2015 Overview: --likely from thrombocytopenia. No menses in prior 8 months. Scant amount reported on 03/29 and 03/30, now resolved --monitor bleeding by counting pads --should f/u with her MODELING DIRECTOR provider after BMT Premature menopause 12/26/2015 Postmenopausal atrophic vaginitis 12/26/2015 Dyspareunia 12/26/2015 documented as of this encounter (statuses as of 07/17/2022) [facility] History of Past illness Narrative* Problem Noted Date Resolved Date Menorrhagia with regular cycle 03/15/2017 1 03/03/2017 Overview: Added automatically from request for surgery [id number] History of pulmonary embolism 04/25/2016 Neoplastic (malignant) [...] FOLLOW-UP 10/27/20122015 Overview: 32 yo female from [place]. Family involved with care, at bedside. plan to discharge patient home - will arrange with case management for post op care as needed - follow up in OPD in 7-10 days Post-op pain 10/27/2012 12/26/2015 Overview: currently well controlled with BOX FEEDER. will start PO pain meds today 10/27. tolerating percocet, pain relatively well controlled. Hodgkin's disease with nodular sclerosis 013 12/26/2015 Overview: Oncology history (per Dr. 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 Hodgkin's disease, unspecified 02/05/2012 0 05/11/2014 Vaginal bleeding 12/26/2015 Overview: --likely from thrombocytopenia. No menses in prior 8 months. Scant amount reported on 03/29 and 03/30, now resolved --monitor bleeding by counting pads --should f/u with her MODELING DIRECTOR provider after BMT Premature menopause 12/26/2015 Postmenopausal atrophic vaginitis 12/26/2015 Dyspareunia 12/26/2015 documented as of this encounter (statuses as of 07/17/2022) [facility] History of Past illness Narrative* Problem Noted Date Resolved Date Menorrhagia with regular cycle 03/15/2017 1 03/03/2017 Overview: Added automatically from request for surgery [id number] History of pulmonary embolism 04/25/2016 Neoplastic (malignant) [...] FOLLOW-UP 10/27/20122015 Overview: 32 yo female from [place]. Family involved with care, at bedside. plan to discharge patient home - will arrange with case management for post op care as needed - follow up in OPD in 7-10 days Post-op pain 10/27/2012 12/26/2015 Overview: currently well controlled with BOX FEEDER. will start PO pain meds today 10/27. tolerating percocet, pain relatively well controlled. Hodgkin's disease with nodular sclerosis 013 12/26/2015 Overview: Oncology history (per Dr. 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 Hodgkin's disease, unspecified 02/05/2012 0 05/11/2014 Vaginal bleeding 12/26/2015 Overview: --likely from thrombocytopenia. No menses in prior 8 months. Scant amount reported on 03/29 and 03/30, now resolved --monitor bleeding by counting pads --should f/u with her MODELING DIRECTOR provider after BMT Premature menopause 12/26/2015 Postmenopausal atrophic vaginitis 12/26/2015 Dyspareunia 12/26/2015 documented as of this encounter (statuses as of 07/18/2022) [facility] History of Past illness Narrative* Problem Noted Date Resolved Date Menorrhagia with regular cycle 03/15/2017 1 03/03/2017 Overview: Added automatically from request for surgery [id number] History of pulmonary embolism 04/25/2016 Neoplastic (malignant) [...] FOLLOW-UP 10/27/20122015 Overview: 32 yo female from [place]. Family involved with care, at bedside. plan to discharge patient home - will arrange with case management for post op care as needed - follow up in OPD in 7-10 days Post-op pain 10/27/2012 12/26/2015 Overview: currently well controlled with BOX FEEDER. will start PO pain meds today 10/27. tolerating percocet, pain relatively well controlled. Hodgkin's disease with nodular sclerosis 013 12/26/2015 Overview: Oncology history (per Dr. 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 Hodgkin's disease, unspecified 02/05/2012 0 05/11/2014 Vaginal bleeding 12/26/2015 Overview: --likely from thrombocytopenia. No menses in prior 8 months. Scant amount reported on 03/29 and 03/30, now resolved --monitor bleeding by counting pads --should f/u with her MODELING DIRECTOR provider after BMT Premature menopause 12/26/2015 Postmenopausal atrophic vaginitis 12/26/2015 Dyspareunia 12/26/2015 documented as of this encounter (statuses as of 07/19/2022) [facility] History of Past illness Narrative* Problem Noted Date Resolved Date Menorrhagia with regular cycle 03/15/2017 1 03/03/2017 Overview: Added automatically from request for surgery [id number] History of pulmonary embolism 04/25/2016 Neoplastic (malignant) [...] FOLLOW-UP 10/27/20122015 Overview: 32 yo female from [place]. Family involved with care, at bedside. plan to discharge patient home - will arrange with case management for post op care as needed - follow up in OPD in 7-10 days Post-op pain 10/27/2012 12/26/2015 Overview: currently well controlled with BOX FEEDER. will start PO pain meds today 10/27. tolerating percocet, pain relatively well controlled. Hodgkin's disease with nodular sclerosis 013 12/26/2015 Overview: Oncology history (per Dr. 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 Hodgkin's disease, unspecified 02/05/2012 0 05/11/2014 Vaginal bleeding 12/26/2015 Overview: --likely from thrombocytopenia. No menses in prior 8 months. Scant amount reported on 03/29 and 03/30, now resolved --monitor bleeding by counting pads --should f/u with her MODELING DIRECTOR provider after BMT Premature menopause 12/26/2015 Postmenopausal atrophic vaginitis 12/26/2015 Dyspareunia 12/26/2015 documented as of this encounter (statuses as of 07/19/2022) [facility] History of Past illness Narrative* Problem Noted Date Resolved Date Menorrhagia with regular cycle 03/15/2017 1 03/03/2017 Overview: Added automatically from request for surgery [id number] History of pulmonary embolism 04/25/2016 Neoplastic (malignant) [...] FOLLOW-UP 10/27/20122015 Overview: 32 yo female from [place]. Family involved with care, at bedside. plan to discharge patient home - will arrange with case management for post op care as needed - follow up in OPD in 7-10 days Post-op pain 10/27/2012 12/26/2015 Overview: currently well controlled with BOX FEEDER. will start PO pain meds today 10/27. tolerating percocet, pain relatively well controlled. Hodgkin's disease with nodular sclerosis 013 12/26/2015 Overview: Oncology history (per Dr. 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 Hodgkin's disease, unspecified 02/05/2012 0 05/11/2014 Vaginal bleeding 12/26/2015 Overview: --likely from thrombocytopenia. No menses in prior 8 months. Scant amount reported on 03/29 and 03/30, now resolved --monitor bleeding by counting pads --should f/u with her MODELING DIRECTOR provider after BMT Premature menopause 12/26/2015 Postmenopausal atrophic vaginitis 12/26/2015 Dyspareunia 12/26/2015 documented as of this encounter (statuses as of 07/25/2022) [facility] History of Past illness Narrative* Problem Noted Date Resolved Date Menorrhagia with regular cycle 03/15/2017 1 03/03/2017 Overview: Added automatically from request for surgery [id number] History of pulmonary embolism 04/25/2016 Neoplastic (malignant) [...] FOLLOW-UP 10/27/20122015 Overview: 32 yo female from [place]. Family involved with care, at bedside. plan to discharge patient home - will arrange with case management for post op care as needed - follow up in OPD in 7-10 days Post-op pain 10/27/2012 12/26/2015 Overview: currently well controlled with BOX FEEDER. will start PO pain meds today 10/27. tolerating percocet, pain relatively well controlled. Hodgkin's disease with nodular sclerosis 013 12/26/2015 Overview: Oncology history (per Dr. 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 Hodgkin's disease, unspecified 02/05/2012 0 05/11/2014 Vaginal bleeding 12/26/2015 Overview: --likely from thrombocytopenia. No menses in prior 8 months. Scant amount reported on 03/29 and 03/30, now resolved --monitor bleeding by counting pads --should f/u with her MODELING DIRECTOR provider after BMT Premature menopause 12/26/2015 Postmenopausal atrophic vaginitis 12/26/2015 Dyspareunia 12/26/2015 documented as of this encounter (statuses as of 07/25/2022) [facility] of Past illness Narrative* Problem Noted Date Resolved Date Menorrhagia with regular cycle 03/15/2017 1 03/03/2017 Overview: Added automatically from request for surgery [id number] History of pulmonary embolism 04/25/2016 Neoplastic (malignant) [...] FOLLOW-UP 10/27/20122015 Overview: 32 yo female from [place]. Family involved with care, at bedside. plan to discharge patient home - will arrange with case management for post op care as needed - follow up in OPD in 7-10 days Post-op pain 10/27/2012 12/26/2015 Overview: currently well controlled with BOX FEEDER. will start PO pain meds today 10/27. tolerating percocet, pain relatively well controlled. Hodgkin's disease with nodular sclerosis 013 12/26/2015 Overview: Oncology history (per Dr. 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 Hodgkin's disease, unspecified 02/05/2012 0 05/11/2014 Vaginal bleeding 12/26/2015 Overview: --likely from thrombocytopenia. No menses in prior 8 months. Scant amount reported on 03/29 and 03/30, now resolved --monitor bleeding by counting pads --should f/u with her MODELING DIRECTOR provider after BMT Premature menopause 12/26/2015 Postmenopausal atrophic vaginitis 12/26/2015 Dyspareunia 12/26/2015 documented as of this encounter (statuses as of 07/25/2022) [facility] History of Past illness Narrative* Problem Noted Date Resolved Date Menorrhagia with regular cycle 03/15/2017 1 03/03/2017 Overview: Added automatically from request for surgery [id number] History of pulmonary embolism 04/25/2016 Neoplastic (malignant) [...] FOLLOW-UP 10/27/20122015 Overview: 32 yo female from [place]. Family involved with care, at bedside. plan to discharge patient home - will arrange with case management for post op care as needed - follow up in OPD in 7-10 days Post-op pain 10/27/2012 12/26/2015 Overview: currently well controlled with BOX FEEDER. will start PO pain meds today 10/27. tolerating percocet, pain relatively well controlled. Hodgkin's disease with nodular sclerosis 013 12/26/2015 Overview: Oncology history (per Dr. 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 Hodgkin's disease, unspecified 02/05/2012 0 05/11/2014 Vaginal bleeding 12/26/2015 Overview: --likely from thrombocytopenia. No menses in prior 8 months. Scant amount reported on 03/29 and 03/30, now resolved --monitor bleeding by counting pads --should f/u with her MODELING DIRECTOR provider after BMT Premature menopause 12/26/2015 Postmenopausal atrophic vaginitis 12/26/2015 Dyspareunia 12/26/2015 documented as of this encounter (statuses as of 08/02/2022) [facility] of Past illness Narrative* Problem Noted Date Resolved Date Menorrhagia with regular cycle 03/15/2017 1 03/03/2017 Overview: Added automatically from request for surgery [id number] History of pulmonary embolism 04/25/2016 Neoplastic (malignant) [...] FOLLOW-UP 10/27/20122015 Overview: 32 yo female from [place]. Family involved with care, at bedside. plan to discharge patient home - will arrange with case management for post op care as needed - follow up in OPD in 7-10 days Post-op pain 10/27/2012 12/26/2015 Overview: currently well controlled with BOX FEEDER. will start PO pain meds today 10/27. tolerating percocet, pain relatively well controlled. Hodgkin's disease with nodular sclerosis 013 12/26/2015 Overview: Oncology history (per Dr. 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 Hodgkin's disease, unspecified 02/05/2012 0 05/11/2014 Vaginal bleeding 12/26/2015 Overview: --likely from thrombocytopenia. No menses in prior 8 months. Scant amount reported on 03/29 and 03/30, now resolved --monitor bleeding by counting pads --should f/u with her MODELING DIRECTOR provider after BMT Premature menopause 12/26/2015 Postmenopausal atrophic vaginitis 12/26/2015 Dyspareunia 12/26/2015 documented as of this encounter (statuses as of 08/05/2022) [facility] of Past illness Narrative* Problem Noted Date Resolved Date Menorrhagia with regular cycle 03/15/2017 1 03/03/2017 Overview: Added automatically from request for surgery [id number] History of pulmonary embolism 04/25/2016 Neoplastic (malignant) [...] FOLLOW-UP 10/27/20122015 Overview: 32 yo female from [place]. Family involved with care, at bedside. plan to discharge patient home - will arrange with case management for post op care as needed - follow up in OPD in 7-10 days Post-op pain 10/27/2012 12/26/2015 Overview: currently well controlled with BOX FEEDER. will start PO pain meds today 10/27. tolerating percocet, pain relatively well controlled. Hodgkin's disease with nodular sclerosis 013 12/26/2015 Overview: Oncology history (per Dr. 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 Hodgkin's disease, unspecified 02/05/2012 0 05/11/2014 Vaginal bleeding 12/26/2015 Overview: --likely from thrombocytopenia. No menses in prior 8 months. Scant amount reported on 03/29 and 03/30, now resolved --monitor bleeding by counting pads --should f/u with her MODELING DIRECTOR provider after BMT Premature menopause 12/26/2015 Postmenopausal atrophic vaginitis 12/26/2015 Dyspareunia 12/26/2015 documented as of this encounter (statuses as of 08/10/2022) [facility] Narrative* Problem Noted Date Resolved Date Menorrhagia with regular cycle 03/15/2017 1 03/03/2017 Overview: Added automatically from request for surgery [id number] History of pulmonary embolism 04/25/2016 Neoplastic (malignant) [...] FOLLOW-UP 10/27/20122015 Overview: 32 yo female from [place]. Family involved with care, at bedside. plan to discharge patient home - will arrange with case management for post op care as needed - follow up in OPD in 7-10 days Post-op pain 10/27/2012 12/26/2015 Overview: currently well controlled with BOX FEEDER. will start PO pain meds today 10/27. tolerating percocet, pain relatively well controlled. Hodgkin's disease with nodular sclerosis 013 12/26/2015 Overview: Oncology history (per Dr. 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 Hodgkin's disease, unspecified 02/05/2012 0 05/11/2014 Vaginal bleeding 12/26/2015 Overview: --likely from thrombocytopenia. No menses in prior 8 months. Scant amount reported on 03/29 and 03/30, now resolved --monitor bleeding by counting pads --should f/u with her MODELING DIRECTOR provider after BMT Premature menopause 12/26/2015 Postmenopausal atrophic vaginitis 12/26/2015 Dyspareunia 12/26/2015 documented as of this encounter (statuses as of 08/10/2022) [facility] of Past illness Narrative* Problem Noted Date Resolved Date Menorrhagia with regular cycle 03/15/2017 1 03/03/2017 Overview: Added automatically from request for surgery [id number] History of pulmonary embolism 04/25/2016 Neoplastic (malignant) [...] FOLLOW-UP 10/27/20122015 Overview: 32 yo female from [place]. Family involved with care, at bedside. plan to discharge patient home - will arrange with case management for post op care as needed - follow up in OPD in 7-10 days Post-op pain 10/27/2012 12/26/2015 Overview: currently well controlled with BOX FEEDER. will start PO pain meds today 10/27. tolerating percocet, pain relatively well controlled. Hodgkin's disease with nodular sclerosis 013 12/26/2015 Overview: Oncology history (per Dr. 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 Hodgkin's disease, unspecified 02/05/2012 0 05/11/2014 Vaginal bleeding 12/26/2015 Overview: --likely from thrombocytopenia. No menses in prior 8 months. Scant amount reported on 03/29 and 03/30, now resolved --monitor bleeding by counting pads --should f/u with her MODELING DIRECTOR provider after BMT Premature menopause 12/26/2015 Postmenopausal atrophic vaginitis 12/26/2015 Dyspareunia 12/26/2015 documented as of this encounter (statuses as of 08/17/2022) [facility] Past [facility] Narrative* Problem Noted Date Resolved Date Menorrhagia with regular cycle 03/15/2017 1 03/03/2017 Overview: Added automatically from request for surgery [id number] History of pulmonary embolism 04/25/2016 Neoplastic (malignant) [...] FOLLOW-UP 10/27/20122015 Overview: 32 yo female from [place], [place]. Family involved with care, at bedside. plan to discharge patient home - will arrange with case management for post op care as needed - follow up in OPD in 7-10 days Post-op pain 10/27/2012 12/26/2015 Overview: currently well controlled with BOX FEEDER. will start PO pain meds today 10/27. tolerating percocet, pain relatively well controlled. Hodgkin's disease with nodular sclerosis 013 12/26/2015 Overview: Oncology history (per Dr. 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 Hodgkin's disease, unspecified 02/05/2012 0 05/11/2014 Vaginal bleeding 12/26/2015 Overview: --likely from thrombocytopenia. No menses in prior 8 months. Scant amount reported on 03/29 and 03/30, now resolved --monitor bleeding by counting pads --should f/u with her MODELING DIRECTOR provider after BMT Premature menopause 12/26/2015 Postmenopausal atrophic vaginitis 12/26/2015 Dyspareunia 12/26/2015 documented as of this encounter (statuses as of 08/23/2022) [facility] History of Past illness Narrative* Problem Noted Date Diagnosed Date Resolved Date Menorrhagia with regular cycle 03/15/2017 01/01/2018 Overview: Added automatically from request for surgery [id number] History of pulmonary embolism 04/25/2016 01/01/2018 Neoplastic [...] FOLLOW-UP 10/27/2012 Overview: 32 yo female from [place]. Family involved with care, at bedside. plan to discharge patient home - will arrange with case management for post op care as needed - follow up in OPD in 7-10 days Post-op pain 10/27/2012 12/26/2015 Overview: currently well controlled with BOX FEEDER. will start PO pain meds today 10/27. tolerating percocet, pain relatively well controlled. Hodgkin's disease with nodular sclerosis 05/27/2012 12/26/2015 Overview: Oncology history (per Dr. 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 Hodgkin's disease, unspecified 02/05/2012 05/11/2014 Vaginal bleeding 12/26/2015 Overview: --likely from thrombocytopenia. No menses in prior 8 months. Scant amount reported on 03/29 and 03/30, now resolved --monitor bleeding by counting pads --should f/u with her MODELING DIRECTOR provider after BMT Premature menopause 12/26/19 16 Postmenopausal atrophic vaginitis 12/26/2015 Dyspareunia 12/26/2015 documented as of this encounter (statuses as of 08/27/2022) [facility] History of Past illness Narrative* Problem Noted Date Diagnosed Date Resolved Date Menorrhagia with regular cycle 03/15/2017 01/01/2018 Overview: Added automatically from request for surgery [id number] History of pulmonary embolism 04/25/2016 01/01/2018 Neoplastic [...] FOLLOW-UP 10/27/2012 Overview: 32 yo female from [place]. Family involved with care, at bedside. plan to discharge patient home - will arrange with case management for post op care as needed - follow up in OPD in 7-10 days Post-op pain 10/27/2012 12/26/2015 Overview: currently well controlled with BOX FEEDER. will start PO pain meds today 10/27. tolerating percocet, pain relatively well controlled. Hodgkin's disease with nodular sclerosis 05/27/2012 12/26/2015 Overview: Oncology history (per Dr. 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 Hodgkin's disease, unspecified 02/05/2012 05/11/2014 Vaginal bleeding 12/26/2015 Overview: --likely from thrombocytopenia. No menses in prior 8 months. Scant amount reported on 03/29 and 03/30, now resolved --monitor bleeding by counting pads --should f/u with her MODELING DIRECTOR provider after BMT Premature menopause 12/26/19 16 Postmenopausal atrophic vaginitis 12/26/2015 Dyspareunia 12/26/2015 documented as of this encounter (statuses as of 08/30/2022) [facility] History of Past illness Narrative* Problem Noted Date Diagnosed Date Resolved Date Menorrhagia with regular cycle 03/15/2017 01/01/2018 Overview: Added automatically from request for surgery [id number] History of pulmonary embolism 04/25/2016 01/01/2018 Neoplastic [...] FOLLOW-UP 10/27/2012 Overview: 32 yo female from [place]. Family involved with care, at bedside. plan to discharge patient home - will arrange with case management for post op care as needed - follow up in OPD in 7-10 days Post-op pain 10/27/2012 12/26/2015 Overview: currently well controlled with BOX FEEDER. will start PO pain meds today 10/27. tolerating percocet, pain relatively well controlled. Hodgkin's disease with nodular sclerosis 05/27/2012 12/26/2015 Overview: Oncology history (per Dr. 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 Hodgkin's disease, unspecified 02/05/2012 05/11/2014 Vaginal bleeding 12/26/2015 Overview: --likely from thrombocytopenia. No menses in prior 8 months. Scant amount reported on 03/29 and 03/30, now resolved --monitor bleeding by counting pads --should f/u with her MODELING DIRECTOR provider after BMT Premature menopause 12/26/19 16 Postmenopausal atrophic vaginitis 12/26/2015 Dyspareunia 12/26/2015 documented as of this encounter (statuses as of 08/31/2022) [facility] History of Past illness Narrative* Problem Noted Date Diagnosed Date Resolved Date Menorrhagia with regular cycle 03/15/2017 01/01/2018 Overview: Added automatically from request for surgery [id number] History of pulmonary embolism 04/25/2016 01/01/2018 Neoplastic [...] FOLLOW-UP 10/27/2012 Overview: 32 yo female from [place]. Family involved with care, at bedside. plan to discharge patient home - will arrange with case management for post op care as needed - follow up in OPD in 7-10 days Post-op pain 10/27/2012 12/26/2015 Overview: currently well controlled with BOX FEEDER. will start PO pain meds today 10/27. tolerating percocet, pain relatively well controlled. Hodgkin's disease with nodular sclerosis 05/27/2012 12/26/2015 Overview: Oncology history (per Dr. 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 Hodgkin's disease, unspecified 02/05/2012 05/11/2014 Vaginal bleeding 12/26/2015 Overview: --likely from thrombocytopenia. No menses in prior 8 months. Scant amount reported on 03/29 and 03/30, now resolved --monitor bleeding by counting pads --should f/u with her MODELING DIRECTOR provider after BMT Premature menopause 12/26/19 16 Postmenopausal atrophic vaginitis 12/26/2015 Dyspareunia 12/26/2015 documented as of this encounter (statuses as of 09/01/2022) [facility] History of Past illness Narrative* Problem Noted Date Diagnosed Date Resolved Date Menorrhagia with regular cycle 03/15/2017 01/01/2018 Overview: Added automatically from request for surgery [id number] History of pulmonary embolism 04/25/2016 01/01/2018 Neoplastic [...] FOLLOW-UP 10/27/2012 Overview: 32 yo female from [place]. Family involved with care, at bedside. plan to discharge patient home - will arrange with case management for post op care as needed - follow up in OPD in 7-10 days Post-op pain 10/27/2012 12/26/2015 Overview: currently well controlled with BOX FEEDER. will start PO pain meds today 10/27. tolerating percocet, pain relatively well controlled. Hodgkin's disease with nodular sclerosis 05/27/2012 12/26/2015 Overview: Oncology history (per Dr. 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 Hodgkin's disease, unspecified 02/05/2012 05/11/2014 Vaginal bleeding 12/26/2015 Overview: --likely from thrombocytopenia. No menses in prior 8 months. Scant amount reported on 03/29 and 03/30, now resolved --monitor bleeding by counting pads --should f/u with her MODELING DIRECTOR provider after BMT Premature menopause 12/26/19 16 Postmenopausal atrophic vaginitis 12/26/2015 Dyspareunia 12/26/2015 documented as of this encounter (statuses as of 09/06/2022) [facility] History of Past illness Narrative* Problem Noted Date Diagnosed Date Resolved Date Menorrhagia with regular cycle 03/15/2017 01/01/2018 Overview: Added automatically from request for surgery [id number] History of pulmonary embolism 04/25/2016 01/01/2018 Neoplastic [...] FOLLOW-UP 10/27/2012 Overview: 32 yo female from [place]. Family involved with care, at bedside. plan to discharge patient home - will arrange with case management for post op care as needed - follow up in OPD in 7-10 days Post-op pain 10/27/2012 12/26/2015 Overview: currently well controlled with BOX FEEDER. will start PO pain meds today 10/27. tolerating percocet, pain relatively well controlled. Hodgkin's disease with nodular sclerosis 05/27/2012 12/26/2015 Overview: Oncology history (per Dr. 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 Hodgkin's disease, unspecified 02/05/2012 05/11/2014 Vaginal bleeding 12/26/2015 Overview: --likely from thrombocytopenia. No menses in prior 8 months. Scant amount reported on 03/29 and 03/30, now resolved --monitor bleeding by counting pads --should f/u with her MODELING DIRECTOR provider after BMT Premature menopause 12/26/19 16 Postmenopausal atrophic vaginitis 12/26/2015 Dyspareunia 12/26/2015 documented as of this encounter (statuses as of 09/13/2022) [facility] History of Past illness Narrative* Problem Noted Date Diagnosed Date Resolved Date Menorrhagia with regular cycle 03/15/2017 01/01/2018 Overview: Added automatically from request for surgery [id number] History of pulmonary embolism 04/25/2016 01/01/2018 Neoplastic [...] FOLLOW-UP 10/27/2012 Overview: 32 yo female from [place]. Family involved with care, at bedside. plan to discharge patient home - will arrange with case management for post op care as needed - follow up in OPD in 7-10 days Post-op pain 10/27/2012 12/26/2015 Overview: currently well controlled with BOX FEEDER. will start PO pain meds today 10/27. tolerating percocet, pain relatively well controlled. Hodgkin's disease with nodular sclerosis 05/27/2012 12/26/2015 Overview: Oncology history (per Dr. 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 Hodgkin's disease, unspecified 02/05/2012 05/11/2014 Vaginal bleeding 12/26/2015 Overview: --likely from thrombocytopenia. No menses in prior 8 months. Scant amount reported on 03/29 and 03/30, now resolved --monitor bleeding by counting pads --should f/u with her MODELING DIRECTOR provider after BMT Premature menopause 12/26/19 16 Postmenopausal atrophic vaginitis 12/26/2015 Dyspareunia 12/26/2015 documented as of this encounter (statuses as of 09/28/2022) [facility] History of Past illness Narrative* Problem Noted Date Diagnosed Date Resolved Date Menorrhagia with regular cycle 03/15/2017 01/01/2018 Overview: Added automatically from request for surgery [id number] History of pulmonary embolism 04/25/2016 01/01/2018 Neoplastic [...] FOLLOW-UP 10/27/2012 Overview: 32 yo female from [place]. Family involved with care, at bedside. plan to discharge patient home - will arrange with case management for post op care as needed - follow up in OPD in 7-10 days Post-op pain 10/27/2012 12/26/2015 Overview: currently well controlled with BOX FEEDER. will start PO pain meds today 10/27. tolerating percocet, pain relatively well controlled. Hodgkin's disease with nodular sclerosis 05/27/2012 12/26/2015 Overview: Oncology history (per Dr. 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 Hodgkin's disease, unspecified 02/05/2012 05/11/2014 Vaginal bleeding 12/26/2015 Overview: --likely from thrombocytopenia. No menses in prior 8 months. Scant amount reported on 03/29 and 03/30, now resolved --monitor bleeding by counting pads --should f/u with her MODELING DIRECTOR provider after BMT Premature menopause 12/26/19 16 Postmenopausal atrophic vaginitis 12/26/2015 Dyspareunia 12/26/2015 documented as of this encounter (statuses as of 10/08/2022) [facility] History of Past illness Narrative* Problem Noted Date Diagnosed Date Resolved Date Menorrhagia with regular cycle 03/15/2017 01/01/2018 Overview: Added automatically from request for surgery [id number] History of pulmonary embolism 04/25/2016 01/01/2018 Neoplastic [...] FOLLOW-UP 10/27/2012 Overview: 32 yo female from [place]. Family involved with care, at bedside. plan to discharge patient home - will arrange with case management for post op care as needed - follow up in OPD in 7-10 days Post-op pain 10/27/2012 12/26/2015 Overview: currently well controlled with BOX FEEDER. will start PO pain meds today 10/27. tolerating percocet, pain relatively well controlled. Hodgkin's disease with nodular sclerosis 05/27/2012 12/26/2015 Overview: Oncology history (per Dr. 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 Hodgkin's disease, unspecified 02/05/2012 05/11/2014 Vaginal bleeding 12/26/2015 Overview: --likely from thrombocytopenia. No menses in prior 8 months. Scant amount reported on 03/29 and 03/30, now resolved --monitor bleeding by counting pads --should f/u with her MODELING DIRECTOR provider after BMT Premature menopause 12/26/19 16 Postmenopausal atrophic vaginitis 12/26/2015 Dyspareunia 12/26/2015 documented as of this encounter (statuses as of 10/09/2022) [facility] History of Past illness Narrative* Problem Noted Date Diagnosed Date Resolved Date Menorrhagia with regular cycle 03/15/2017 01/01/2018 Overview: Added automatically from request for surgery [id number] History of pulmonary embolism 04/25/2016 01/01/2018 Neoplastic [...] FOLLOW-UP 10/27/2012 Overview: 32 yo female from [place]. Family involved with care, at bedside. plan to discharge patient home - will arrange with case management for post op care as needed - follow up in OPD in 7-10 days Post-op pain 10/27/2012 12/26/2015 Overview: currently well controlled with BOX FEEDER. will start PO pain meds today 10/27. tolerating percocet, pain relatively well controlled. Hodgkin's disease with nodular sclerosis 05/27/2012 12/26/2015 Overview: Oncology history (per Dr. 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 Hodgkin's disease, unspecified 02/05/2012 05/11/2014 Vaginal bleeding 12/26/2015 Overview: --likely from thrombocytopenia. No menses in prior 8 months. Scant amount reported on 03/29 and 03/30, now resolved --monitor bleeding by counting pads --should f/u with her MODELING DIRECTOR provider after BMT Premature menopause 12/26/19 16 Postmenopausal atrophic vaginitis 12/26/2015 Dyspareunia 12/26/2015 documented as of this encounter (statuses as of 10/09/2022) [facility] History of Past illness Narrative* Problem Noted Date Diagnosed Date Resolved Date Menorrhagia with regular cycle 03/15/2017 01/01/2018 Overview: Added automatically from request for surgery [id number] History of pulmonary embolism 04/25/2016 01/01/2018 Neoplastic [...] FOLLOW-UP 10/27/2012 Overview: 32 yo female from [place]. Family involved with care, at bedside. plan to discharge patient home - will arrange with case management for post op care as needed - follow up in OPD in 7-10 days Post-op pain 10/27/2012 12/26/2015 Overview: currently well controlled with BOX FEEDER. will start PO pain meds today 10/27. tolerating percocet, pain relatively well controlled. Hodgkin's disease with nodular sclerosis 05/27/2012 12/26/2015 Overview: Oncology history (per Dr. 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 Hodgkin's disease, unspecified 02/05/2012 05/11/2014 Vaginal bleeding 12/26/2015 Overview: --likely from thrombocytopenia. No menses in prior 8 months. Scant amount reported on 03/29 and 03/30, now resolved --monitor bleeding by counting pads --should f/u with her MODELING DIRECTOR provider after BMT Premature menopause 12/26/19 16 Postmenopausal atrophic vaginitis 12/26/2015 Dyspareunia 12/26/2015 documented as of this encounter (statuses as of 10/10/2022) [facility] of Past illness Narrative* Problem Noted Date Diagnosed Date Resolved Date Menorrhagia with regular cycle 03/15/2017 01/01/2018 Overview: Added automatically from request for surgery [id number] History of pulmonary embolism 04/25/2016 01/01/2018 Neoplastic [...] FOLLOW-UP 10/27/2012 Overview: 32 yo female from [place]. Family involved with care, at bedside. plan to discharge patient home - will arrange with case management for post op care as needed - follow up in OPD in 7-10 days Post-op pain 10/27/2012 12/26/2015 Overview: currently well controlled with BOX FEEDER. will start PO pain meds today 10/27. tolerating percocet, pain relatively well controlled. Hodgkin's disease with nodular sclerosis 05/27/2012 12/26/2015 Overview: Oncology history (per Dr. 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 Hodgkin's disease, unspecified 02/05/2012 05/11/2014 Vaginal bleeding 12/26/2015 Overview: --likely from thrombocytopenia. No menses in prior 8 months. Scant amount reported on 03/29 and 03/30, now resolved --monitor bleeding by counting pads --should f/u with her MODELING DIRECTOR provider after BMT Premature menopause 12/26/19 16 Postmenopausal atrophic vaginitis 12/26/2015 Dyspareunia 12/26/2015 documented as of this encounter (statuses as of 10/10/2022) [facility] Past illness Narrative* Problem Noted Date Diagnosed Date Resolved Date Menorrhagia with regular cycle 03/15/2017 01/01/2018 Overview: Added automatically from request for surgery [id number] History of pulmonary embolism 04/25/2016 01/01/2018 Neoplastic [...] FOLLOW-UP 10/27/2012 Overview: 32 yo female from [place]. Family involved with care, at bedside. plan to discharge patient home - will arrange with case management for post op care as needed - follow up in OPD in 7-10 days Post-op pain 10/27/2012 12/26/2015 Overview: currently well controlled with BOX FEEDER. will start PO pain meds today 10/27. tolerating percocet, pain relatively well controlled. Hodgkin's disease with nodular sclerosis 05/27/2012 12/26/2015 Overview: Oncology history (per Dr. 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 Hodgkin's disease, unspecified 02/05/2012 05/11/2014 Vaginal bleeding 12/26/2015 Overview: --likely from thrombocytopenia. No menses in prior 8 months. Scant amount reported on 03/29 and 03/30, now resolved --monitor bleeding by counting pads --should f/u with her MODELING DIRECTOR provider after BMT Premature menopause 12/26/19 16 Postmenopausal atrophic vaginitis 12/26/2015 Dyspareunia 12/26/2015 documented as of this encounter (statuses as of 10/18/2022) [facility] of Past illness Narrative* Problem Noted Date Diagnosed Date Resolved Date Menorrhagia with regular cycle 03/15/2017 01/01/2018 Overview: Added automatically from request for surgery [id number] History of pulmonary embolism 04/25/2016 01/01/2018 Neoplastic [...] FOLLOW-UP 10/27/2012 Overview: 32 yo female from [place]. Family involved with care, at bedside. plan to discharge patient home - will arrange with case management for post op care as needed - follow up in OPD in 7-10 days Post-op pain 10/27/2012 12/26/2015 Overview: currently well controlled with BOX FEEDER. will start PO pain meds today 10/27. tolerating percocet, pain relatively well controlled. Hodgkin's disease with nodular sclerosis 05/27/2012 12/26/2015 Overview: Oncology history (per Dr. 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 Hodgkin's disease, unspecified 02/05/2012 05/11/2014 Vaginal bleeding 12/26/2015 Overview: --likely from thrombocytopenia. No menses in prior 8 months. Scant amount reported on 03/29 and 03/30, now resolved --monitor bleeding by counting pads --should f/u with her MODELING DIRECTOR provider after BMT Premature menopause 12/26/19 16 Postmenopausal atrophic vaginitis 12/26/2015 Dyspareunia 12/26/2015 documented as of this encounter (statuses as of 10/18/2022) [facility] of Past illness Narrative* Problem Noted Date Diagnosed Date Resolved Date Menorrhagia with regular cycle 03/15/2017 01/01/2018 Overview: Added automatically from request for surgery [id number] History of pulmonary embolism 04/25/2016 01/01/2018 Neoplastic [...] FOLLOW-UP 10/27/2012 Overview: 32 yo female from [place]. Family involved with care, at bedside. plan to discharge patient home - will arrange with case management for post op care as needed - follow up in OPD in 7-10 days Post-op pain 10/27/2012 12/26/2015 Overview: currently well controlled with BOX FEEDER. will start PO pain meds today 10/27. tolerating percocet, pain relatively well controlled. Hodgkin's disease with nodular sclerosis 05/27/2012 12/26/2015 Overview: Oncology history (per Dr. 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 Hodgkin's disease, unspecified 02/05/2012 05/11/2014 Vaginal bleeding 12/26/2015 Overview: --likely from thrombocytopenia. No menses in prior 8 months. Scant amount reported on 03/29 and 03/30, now resolved --monitor bleeding by counting pads --should f/u with her MODELING DIRECTOR provider after BMT Premature menopause 12/26/19 16 Postmenopausal atrophic vaginitis 12/26/2015 Dyspareunia 12/26/2015 documented as of this encounter (statuses as of 10/19/2022) [facility] History of Past illness Narrative* Problem Noted Date Diagnosed Date Resolved Date Menorrhagia with regular cycle 03/15/2017 01/01/2018 Overview: Added automatically from request for surgery [id number] History of pulmonary embolism 04/25/2016 01/01/2018 Neoplastic [...] FOLLOW-UP 10/27/2012 Overview: 32 yo female from [place]. Family involved with care, at bedside. plan to discharge patient home - will arrange with case management for post op care as needed - follow up in OPD in 7-10 days Post-op pain 10/27/2012 12/26/2015 Overview: currently well controlled with BOX FEEDER. will start PO pain meds today 10/27. tolerating percocet, pain relatively well controlled. Hodgkin's disease with nodular sclerosis 05/27/2012 12/26/2015 Overview: Oncology history (per Dr. 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 Hodgkin's disease, unspecified 02/05/2012 05/11/2014 Vaginal bleeding 12/26/2015 Overview: --likely from thrombocytopenia. No menses in prior 8 months. Scant amount reported on 03/29 and 03/30, now resolved --monitor bleeding by counting pads --should f/u with her MODELING DIRECTOR provider after BMT Premature menopause 12/26/19 16 Postmenopausal atrophic vaginitis 12/26/2015 Dyspareunia 12/26/2015 documented as of this encounter (statuses as of 10/24/2022) [facility] History of Past illness Narrative* Problem Noted Date Diagnosed Date Resolved Date Menorrhagia with regular cycle 03/15/2017 01/01/2018 Overview: Added automatically from request for surgery [id number] History of pulmonary embolism 04/25/2016 01/01/2018 Neoplastic [...] FOLLOW-UP 10/27/2012 Overview: 32 yo female from [place]. Family involved with care, at bedside. plan to discharge patient home - will arrange with case management for post op care as needed - follow up in OPD in 7-10 days Post-op pain 10/27/2012 12/26/2015 Overview: currently well controlled with BOX FEEDER. will start PO pain meds today 10/27. tolerating percocet, pain relatively well controlled. Hodgkin's disease with nodular sclerosis 05/27/2012 12/26/2015 Overview: Oncology history (per Dr. 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 Hodgkin's disease, unspecified 02/05/2012 05/11/2014 Vaginal bleeding 12/26/2015 Overview: --likely from thrombocytopenia. No menses in prior 8 months. Scant amount reported on 03/29 and 03/30, now resolved --monitor bleeding by counting pads --should f/u with her MODELING DIRECTOR provider after BMT Premature menopause 12/26/19 16 Postmenopausal atrophic vaginitis 12/26/2015 Dyspareunia 12/26/2015 documented as of this encounter (statuses as of 10/26/2022) [facility] History of Past illness Narrative* Problem Noted Date Diagnosed Date Resolved Date Menorrhagia with regular cycle 03/15/2017 01/01/2018 Overview: Added automatically from request for surgery [id number] History of pulmonary embolism 04/25/2016 01/01/2018 Neoplastic [...] FOLLOW-UP 10/27/2012 Overview: 32 yo female from [place]. Family involved with care, at bedside. plan to discharge patient home - will arrange with case management for post op care as needed - follow up in OPD in 7-10 days Post-op pain 10/27/2012 12/26/2015 Overview: currently well controlled with BOX FEEDER. will start PO pain meds today 10/27. tolerating percocet, pain relatively well controlled. Hodgkin's disease with nodular sclerosis 05/27/2012 12/26/2015 Overview: Oncology history (per Dr. 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 Hodgkin's disease, unspecified 02/05/2012 05/11/2014 Vaginal bleeding 12/26/2015 Overview: --likely from thrombocytopenia. No menses in prior 8 months. Scant amount reported on 03/29 and 03/30, now resolved --monitor bleeding by counting pads --should f/u with her MODELING DIRECTOR provider after BMT Premature menopause 12/26/19 16 Postmenopausal atrophic vaginitis 12/26/2015 Dyspareunia 12/26/2015 documented as of this encounter (statuses as of 11/06/2022) [facility] History of Past illness Narrative* Problem Noted Date Diagnosed Date Resolved Date Menorrhagia with regular cycle 03/15/2017 01/01/2018 Overview: Added automatically from request for surgery [id number] History of pulmonary embolism 04/25/2016 01/01/2018 Neoplastic [...] FOLLOW-UP 10/27/2012 Overview: 32 yo female from [place]. Family involved with care, at bedside. plan to discharge patient home - will arrange with case management for post op care as needed - follow up in OPD in 7-10 days Post-op pain 10/27/2012 12/26/2015 Overview: currently well controlled with BOX FEEDER. will start PO pain meds today 10/27. tolerating percocet, pain relatively well controlled. Hodgkin's disease with nodular sclerosis 05/27/2012 12/26/2015 Overview: Oncology history (per Dr. 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 Hodgkin's disease, unspecified 02/05/2012 05/11/2014 Vaginal bleeding 12/26/2015 Overview: --likely from thrombocytopenia. No menses in prior 8 months. Scant amount reported on 03/29 and 03/30, now resolved --monitor bleeding by counting pads --should f/u with her MODELING DIRECTOR provider after BMT Premature menopause 12/26/19 16 Postmenopausal atrophic vaginitis 12/26/2015 Dyspareunia 12/26/2015 documented as of this encounter (statuses as of 11/11/2022) [facility] History of Past illness Narrative* Problem Noted Date Diagnosed Date Resolved Date Menorrhagia with regular cycle 03/15/2017 01/01/2018 Overview: Added automatically from request for surgery [id number] History of pulmonary embolism 04/25/2016 01/01/2018 Neoplastic [...] FOLLOW-UP 10/27/2012 Overview: 32 yo female from [place]. Family involved with care, at bedside. plan to discharge patient home - will arrange with case management for post op care as needed - follow up in OPD in 7-10 days Post-op pain 10/27/2012 12/26/2015 Overview: currently well controlled with BOX FEEDER. will start PO pain meds today 10/27. tolerating percocet, pain relatively well controlled. Hodgkin's disease with nodular sclerosis 05/27/2012 12/26/2015 Overview: Oncology history (per Dr. 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 Hodgkin's disease, unspecified 02/05/2012 05/11/2014 Vaginal bleeding 12/26/2015 Overview: --likely from thrombocytopenia. No menses in prior 8 months. Scant amount reported on 03/29 and 03/30, now resolved --monitor bleeding by counting pads --should f/u with her MODELING DIRECTOR provider after BMT Premature menopause 12/26/19 16 Postmenopausal atrophic vaginitis 12/26/2015 Dyspareunia 12/26/2015 documented as of this encounter (statuses as of 11/13/2022) [facility] History of Past illness Narrative* Problem Noted Date Diagnosed Date Resolved Date Menorrhagia with regular cycle 03/15/2017 01/01/2018 Overview: Added automatically from request for surgery [id number] History of pulmonary embolism 04/25/2016 01/01/2018 Neoplastic [...] FOLLOW-UP 10/27/2012 Overview: 32 yo female from [place]. Family involved with care, at bedside. plan to discharge patient home - will arrange with case management for post op care as needed - follow up in OPD in 7-10 days Post-op pain 10/27/2012 12/26/2015 Overview: currently well controlled with BOX FEEDER. will start PO pain meds today 10/27. tolerating percocet, pain relatively well controlled. Hodgkin's disease with nodular sclerosis 05/27/2012 12/26/2015 Overview: Oncology history (per Dr. 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 Hodgkin's disease, unspecified 02/05/2012 05/11/2014 Vaginal bleeding 12/26/2015 Overview: --likely from thrombocytopenia. No menses in prior 8 months. Scant amount reported on 03/29 and 03/30, now resolved --monitor bleeding by counting pads --should f/u with her MODELING DIRECTOR provider after BMT Premature menopause 12/26/19 16 Postmenopausal atrophic vaginitis 12/26/2015 Dyspareunia 12/26/2015 documented as of this encounter (statuses as of 11/26/2022) [facility] History of Past illness Narrative* Problem Noted Date Diagnosed Date Resolved Date Menorrhagia with regular cycle 03/15/2017 01/01/2018 Overview: Added automatically from request for surgery [id number] History of pulmonary embolism 04/25/2016 01/01/2018 Neoplastic [...] FOLLOW-UP 10/27/2012 Overview: 32 yo female from [place]. Family involved with care, at bedside. plan to discharge patient home - will arrange with case management for post op care as needed - follow up in OPD in 7-10 days Post-op pain 10/27/2012 12/26/2015 Overview: currently well controlled with BOX FEEDER. will start PO pain meds today 10/27. tolerating percocet, pain relatively well controlled. Hodgkin's disease with nodular sclerosis 05/27/2012 12/26/2015 Overview: Oncology history (per Dr. 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 Hodgkin's disease, unspecified 02/05/2012 05/11/2014 Vaginal bleeding 12/26/2015 Overview: --likely from thrombocytopenia. No menses in prior 8 months. Scant amount reported on 03/29 and 03/30, now resolved --monitor bleeding by counting pads --should f/u with her MODELING DIRECTOR provider after BMT Premature menopause 12/26/19 16 Postmenopausal atrophic vaginitis 12/26/2015 Dyspareunia 12/26/2015 documented as of this encounter (statuses as of 12/04/2022) [facility] History of Past illness Narrative* Problem Noted Date Diagnosed Date Resolved Date Menorrhagia with regular cycle 03/15/2017 01/01/2018 Overview: Added automatically from request for surgery [id number] History of pulmonary embolism 04/25/2016 01/01/2018 Neoplastic [...] FOLLOW-UP 10/27/2012 Overview: 32 yo female from [place]. Family involved with care, at bedside. plan to discharge patient home - will arrange with case management for post op care as needed - follow up in OPD in 7-10 days Post-op pain 10/27/2012 12/26/2015 Overview: currently well controlled with BOX FEEDER. will start PO pain meds today 10/27. tolerating percocet, pain relatively well controlled. Hodgkin's disease with nodular sclerosis 05/27/2012 12/26/2015 Overview: Oncology history (per Dr. 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 Hodgkin's disease, unspecified 02/05/2012 05/11/2014 Vaginal bleeding 12/26/2015 Overview: --likely from thrombocytopenia. No menses in prior 8 months. Scant amount reported on 03/29 and 03/30, now resolved --monitor bleeding by counting pads --should f/u with her MODELING DIRECTOR provider after BMT Premature menopause 12/26/19 16 Postmenopausal atrophic vaginitis 12/26/2015 Dyspareunia 12/26/2015 documented as of this encounter (statuses as of 12/18/2022) [facility] of Past illness Narrative* Problem Noted Date Diagnosed Date Resolved Date Menorrhagia with regular cycle 03/15/2017 01/01/2018 Overview: Added automatically from request for surgery [id number] History of pulmonary embolism 04/25/2016 01/01/2018 Neoplastic [...] FOLLOW-UP 10/27/2012 Overview: 32 yo female from [place]. Family involved with care, at bedside. plan to discharge patient home - will arrange with case management for post op care as needed - follow up in OPD in 7-10 days Post-op pain 10/27/2012 12/26/2015 Overview: currently well controlled with BOX FEEDER. will start PO pain meds today 10/27. tolerating percocet, pain relatively well controlled. Hodgkin's disease with nodular sclerosis 05/27/2012 12/26/2015 Overview: Oncology history (per Dr. 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 Hodgkin's disease, unspecified 02/05/2012 05/11/2014 Vaginal bleeding 12/26/2015 Overview: --likely from thrombocytopenia. No menses in prior 8 months. Scant amount reported on 03/29 and 03/30, now resolved --monitor bleeding by counting pads --should f/u with her MODELING DIRECTOR provider after BMT Premature menopause 12/26/19 16 Postmenopausal atrophic vaginitis 12/26/2015 Dyspareunia 12/26/2015 documented as of this encounter (statuses as of 12/31/2022) [facility] History of Past illness Narrative* Problem Noted Date Diagnosed Date Resolved Date Menorrhagia with regular cycle 03/15/2017 01/01/2018 Overview: Added automatically from request for surgery [id number] History of pulmonary embolism 04/25/2016 01/01/2018 Neoplastic [...] FOLLOW-UP 10/27/2012 Overview: 32 yo female from [place]. Family involved with care, at bedside. plan to discharge patient home - will arrange with case management for post op care as needed - follow up in OPD in 7-10 days Post-op pain 10/27/2012 12/26/2015 Overview: currently well controlled with BOX FEEDER. will start PO pain meds today 10/27. tolerating percocet, pain relatively well controlled. Hodgkin's disease with nodular sclerosis 05/27/2012 12/26/2015 Overview: Oncology history (per Dr. 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 Hodgkin's disease, unspecified 02/05/2012 05/11/2014 Vaginal bleeding 12/26/2015 Overview: --likely from thrombocytopenia. No menses in prior 8 months. Scant amount reported on 03/29 and 03/30, now resolved --monitor bleeding by counting pads --should f/u with her MODELING DIRECTOR provider after BMT Premature menopause 12/26/19 16 Postmenopausal atrophic vaginitis 12/26/2015 Dyspareunia 12/26/2015 documented as of this encounter (statuses as of 01/03/2023) [facility] of Past illness Narrative* Problem Noted Date Diagnosed Date Resolved Date Menorrhagia with regular cycle 03/15/2017 01/01/2018 Overview: Added automatically from request for surgery [id number] History of pulmonary embolism 04/25/2016 01/01/2018 Neoplastic [...] FOLLOW-UP 10/27/2012 Overview: 32 yo female from [place]. Family involved with care, at bedside. plan to discharge patient home - will arrange with case management for post op care as needed - follow up in OPD in 7-10 days Post-op pain 10/27/2012 12/26/2015 Overview: currently well controlled with BOX FEEDER. will start PO pain meds today 10/27. tolerating percocet, pain relatively well controlled. Hodgkin's disease with nodular sclerosis 05/27/2012 12/26/2015 Overview: Oncology history (per Dr. 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 Hodgkin's disease, unspecified 02/05/2012 05/11/2014 Vaginal bleeding 12/26/2015 Overview: --likely from thrombocytopenia. No menses in prior 8 months. Scant amount reported on 03/29 and 03/30, now resolved --monitor bleeding by counting pads --should f/u with her MODELING DIRECTOR provider after BMT Premature menopause 12/26/19 16 Postmenopausal atrophic vaginitis 12/26/2015 Dyspareunia 12/26/2015 documented as of this encounter (statuses as of 01/03/2023) [facility] Past illness Narrative* Problem Noted Date Diagnosed Date Resolved Date Menorrhagia with regular cycle 03/15/2017 01/01/2018 Overview: Added automatically from request for surgery [id number] History of pulmonary embolism 04/25/2016 01/01/2018 Neoplastic [...] FOLLOW-UP 10/27/2012 Overview: 32 yo female from [place]. Family involved with care, at bedside. plan to discharge patient home - will arrange with case management for post op care as needed - follow up in OPD in 7-10 days Post-op pain 10/27/2012 12/26/2015 Overview: currently well controlled with BOX FEEDER. will start PO pain meds today 10/27. tolerating percocet, pain relatively well controlled. Hodgkin's disease with nodular sclerosis 05/27/2012 12/26/2015 Overview: Oncology history (per Dr. 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 Hodgkin's disease, unspecified 02/05/2012 05/11/2014 Vaginal bleeding 12/26/2015 Overview: --likely from thrombocytopenia. No menses in prior 8 months. Scant amount reported on 03/29 and 03/30, now resolved --monitor bleeding by counting pads --should f/u with her MODELING DIRECTOR provider after BMT Premature menopause 12/26/19 16 Postmenopausal atrophic vaginitis 12/26/2015 Dyspareunia 12/26/2015 documented as of this encounter (statuses as of 01/07/2023) [facility] Narrative* Problem Noted Date Diagnosed Date Resolved Date Menorrhagia with regular cycle 03/15/2017 01/01/2018 Overview: Added automatically from request for surgery [id number] History of pulmonary embolism 04/25/2016 01/01/2018 Neoplastic [...] FOLLOW-UP 10/27/2012 Overview: 32 yo female from [place]. Family involved with care, at bedside. plan to discharge patient home - will arrange with case management for post op care as needed - follow up in OPD in 7-10 days Post-op pain 10/27/2012 12/26/2015 Overview: currently well controlled with BOX FEEDER. will start PO pain meds today 10/27. tolerating percocet, pain relatively well controlled. Hodgkin's disease with nodular sclerosis 05/27/2012 12/26/2015 Overview: Oncology history (per Dr. 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 Hodgkin's disease, unspecified 02/05/2012 05/11/2014 Vaginal bleeding 12/26/2015 Overview: --likely from thrombocytopenia. No menses in prior 8 months. Scant amount reported on 2/9 and 03/30, now resolved --monitor bleeding by counting pads --should f/u with her MODELING DIRECTOR provider after BMT Premature menopause 12/26/19 16 Postmenopausal atrophic vaginitis 12/26/2015 Dyspareunia 12/26/2015 documented as of this encounter (statuses as of 01/29/2023) [facility] Diagnosis Nodular sclerosis Hodgkin lymphoma of [...] Anxiety state, unspecified [facility] Nodular sclerosis Hodgkin lymphoma [...] body region (HCC) [facility] Diagnosis Hodgkin lymphoma, unspecified Hodgkin lymphoma type, unspecified body region (HCC)- Primary 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) [facility] Diagnosis 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 Encounter for antineoplastic immunotherapy [facility] Diagnosis 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 Cancer related pain Neoplasm related pain (acute) (chronic) Encounter for palliative care [facility] Diagnosis Nodular sclerosis Hodgkin lymphoma of intrathoracic lymph nodes (HCC) Nausea Nausea alone documented in this encounter [facility] note* Diagnosis Simple chronic bronchitis (HCC)- Primary Simple chronic bronchitis Restrictive lung disease Other diseases of lung, not elsewhere classified documented in this encounter [facility] note* Diagnosis 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 documented in this encounter [facility] note* Diagnosis 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) Nausea Nausea alone documented in this encounter [facility] note* Diagnosis Muscle cramps Cramp of limb Nodular sclerosing Hodgkin's lymphoma, 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) 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 documented in this encounter [facility] note* Diagnosis 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 Cancer related pain Neoplasm related pain (acute) (chronic) Encounter for palliative care documented in this encounter [facility] note* Diagnosis 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 documented in this encounter [facility] note* Diagnosis Hidradenitis suppurativa- Primary Hidradenitis Painful skin lesion documented in this encounter [facility] note* Diagnosis Muscle cramps Cramp of limb Nodular sclerosis classical Hodgkin lymphoma (HCC) Hodgkin's disease, nodular sclerosis, unspecified site, extranodal and solid organ sites documented in this encounter [facility] note* Diagnosis 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 Cancer related pain Neoplasm related pain (acute) (chronic) Encounter for palliative care documented in this encounter [facility]Nort [employer] Other Evaluation note* Diagnosis 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 documented in this encounter [facility] note* Diagnosis 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 documented in this encounter [facility] note* Diagnosis Muscle cramps Cramp of limb [...] left [facility] Diagnosis 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 [facility] Diagnosis Nodular sclerosing Hodgkin's lymphoma, 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) 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 [facility] Diagnosis Simple chronic bronchitis (HCC) Simple chronic bronchitis [facility] Diagnosis Muscle cramps Cramp of limb Nodular sclerosing Hodgkin's lymphoma, unspecified body region (HCC) [facility] Diagnosis 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 Cancer related pain Neoplasm related pain (acute) (chronic) Encounter for palliative care [facility] Diagnosis 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 [facility]* Diagnosis Nodular sclerosing Hodgkin's lymphoma, unspecified body region (HCC)- Primary Encounter for antineoplastic immunotherapy [facility]* Diagnosis Nodular sclerosis Hodgkin lymphoma of [...] organ sites [facility]* Diagnosis Muscle cramps Cramp of limb Nodular sclerosing Hodgkin's lymphoma, unspecified body region (HCC) [facility]* Diagnosis 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 [facility] Diagnosis Nodular sclerosing Hodgkin's lymphoma, unspecified body region (HCC)- Primary [facility]* Diagnosis Nodular sclerosing Hodgkin's lymphoma, unspecified body region (HCC)- Primary History of pulmonary embolism Personal history of pulmonary embolism Chemotherapy-induced neuropathy (HCC) 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 Muscle cramps Cramp of limb [facility]* Diagnosis 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 [facility]* Diagnosis History of pulmonary embolism Personal history of pulmonary embolism [facility]* Diagnosis 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 Nausea Nausea alone [facility]* Diagnosis 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 [facility]* Diagnosis Acne vulgaris- Primary Other acne [facility]* Diagnosis Nodular sclerosing Hodgkin's lymphoma, 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) 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 [facility]* Diagnosis 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 Encounter for antineoplastic immunotherapy Encounter for long-term (current) use of medications Encounter for long-term (current) use of other medications [facility]* Diagnosis Nodular sclerosing Hodgkin's lymphoma, unspecified body region (HCC)- Primary JOE (dyspnea on exertion) Other dyspnea and respiratory abnormality Chronic cough Cough Chest tightness Other chest pain [facility]* Diagnosis Muscle cramps Cramp of limb Nodular sclerosing Hodgkin's lymphoma, unspecified body region (HCC) [facility]* Diagnosis 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 Cancer related pain Neoplasm related pain (acute) (chronic) Encounter for palliative care [facility] Diagnosis 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 [facility]* Diagnosis Nodular sclerosing Hodgkin's lymphoma, [...] Cramp of limb [facility]* Diagnosis Nodular sclerosis Hodgkin lymphoma [...] (HCC)- Primary [facility]* Diagnosis 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 [facility]* Diagnosis 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 marrow replaced by transplant [facility]* Diagnosis 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 Encounter for long-term (current) use of medications Encounter for long-term (current) use of other medications Encounter for antineoplastic immunotherapy [facility] Diagnosis 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 Cancer related pain Neoplasm related pain (acute) (chronic) Encounter for palliative care Muscle cramps Cramp of limb Nodular sclerosis classical Hodgkin lymphoma (HCC) Hodgkin's disease, nodular sclerosis, unspecified site, extranodal and solid organ sites [facility] Diagnosis Muscle cramps Cramp of limb Nodular sclerosing Hodgkin's lymphoma, 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) 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 [facility] Diagnosis Encounter for palliative care- Primary 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 Cancer related pain Neoplasm related pain (acute) (chronic) Muscle cramps Cramp of limb Opioid use agreement exists Encounters for other specified administrative purpose [facility] Diagnosis 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 [facility]* Diagnosis Nodular sclerosing Hodgkin's lymphoma, 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) 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 [facility]* Diagnosis NO SHOW- Primary [facility] Diagnosis Nodular sclerosis Hodgkin lymphoma of [...] for palliative care [facility]* Diagnosis Dyspnea on exertion- Primary Other dyspnea and respiratory abnormality [facility]* Diagnosis 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 Cancer related pain Neoplasm related pain (acute) (chronic) Encounter for palliative care [facility] Diagnosis Nodular sclerosing Hodgkin's lymphoma, unspecified body region (HCC)- Primary [facility]* Diagnosis Palliative care by specialist- Primary Opioid use agreement exists Encounters for other specified administrative purpose Cancer related pain Neoplasm related pain (acute) (chronic) 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) Muscle cramps Cramp of limb [facility]* Diagnosis Nodular sclerosing Hodgkin's lymphoma, 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) 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 [facility]* Diagnosis Chronic cough- Primary Cough Productive cough Cough Dyspnea on exertion Other dyspnea and respiratory abnormality Opacity of lung on imaging study [facility]* Diagnosis Bronchitis- Primary Bronchitis, not specified as acute or chronic Chronic cough Cough [facility]* Diagnosis Muscle cramps Cramp of [...] Painful skin lesion [facility] Diagnosis Palliative care by specialist- Primary Nodular sclerosing Hodgkin's lymphoma, unspecified body region (HCC) Cancer related pain Neoplasm related pain (acute) (chronic) Opioid use agreement exists Encounters for other specified administrative purpose Muscle cramps Cramp of limb [facility] Diagnosis Nodular sclerosis Hodgkin lymphoma of intrathoracic lymph nodes (HCC) Nausea Nausea alone [facility]* Diagnosis 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 Cancer related pain Neoplasm related pain (acute) (chronic) Encounter for palliative care [facility]* Diagnosis Nodular sclerosing Hodgkin's lymphoma, 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) 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 [facility]* Diagnosis History of pulmonary embolism Personal history of pulmonary embolism [facility] Diagnosis Muscle cramps Cramp of limb Nodular sclerosing Hodgkin's lymphoma, unspecified body region (HCC) [facility]* Diagnosis Nodular sclerosis Hodgkin lymphoma of [...] hypothyroidism Unspecified hypothyroidism [facility] Diagnosis Muscle cramps Cramp of limb Nodular sclerosing Hodgkin's lymphoma, 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 Cancer related pain Neoplasm related pain (acute) (chronic) Encounter for palliative care [facility] Diagnosis 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 [facility] noteNo assessment information availableDay[facility] Work Phone: Evaluation note* Diagnosis Chronic cough Cough [facility] Diagnosis Bronchitis Bronchitis, not specified as acute or chronic [facility] Diagnosis Restrictive lung disease- Primary Other diseases of lung, not elsewhere classified Chronic cough Cough Post-nasal drip Postnasal drip Hoarseness Dysphonia Dysphagia, unspecified type History of pulmonary embolism Personal history of pulmonary embolism [facility]* Diagnosis Bronchitis, not specified as acute or chronic- Primary Chronic cough Cough [facility]- [facility] Diagnosis 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 [facility]* Diagnosis 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 Cancer related pain Neoplasm related pain (acute) (chronic) Encounter for palliative care Muscle cramps Cramp of limb Nodular sclerosing Hodgkin's lymphoma, unspecified body region (HCC) [facility] Diagnosis 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 Restrictive lung disease Other diseases of lung, not elsewhere classified Malaise and fatigue Other malaise and fatigue [facility] Diagnosis Influenza with pneumonia- Primary Restrictive lung disease Other diseases of lung, not elsewhere classified Hospital discharge follow-up Other follow-up examination [facility] Influenza with pneumonia [facility] Diagnosis Muscle cramps Cramp of limb Nodular sclerosis classical Hodgkin lymphoma (HCC) Hodgkin's disease, nodular sclerosis, unspecified site, extranodal and solid organ sites [facility] Diagnosis 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 Cancer related pain Neoplasm related pain (acute) (chronic) Encounter for palliative care [facility] Diagnosis Dyspnea on exertion Other dyspnea and respiratory abnormality [facility] Diagnosis Dysphagia, unspecified type Hoarseness Dysphonia Gastroesophageal reflux disease, unspecified whether esophagitis present LPRD (laryngopharyngeal reflux disease) Other diseases of larynx [facility]* Diagnosis Dyspnea on exertion Other dyspnea and respiratory abnormality [facility] Diagnosis Restrictive lung disease- Primary Other diseases of lung, not elsewhere classified Wheezing [facility] Diagnosis Wheezing [facility]* Diagnosis 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 Cancer related pain Neoplasm related pain (acute) (chronic) Encounter for palliative care [facility]* Diagnosis 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 Restrictive lung disease Other diseases of lung, not elsewhere classified Malaise and fatigue Other malaise and fatigue [facility]* Diagnosis Bronchitis- Primary Bronchitis, not specified as acute or chronic Acute non-recurrent pansinusitis Oral thrush Candidiasis of mouth Restrictive lung disease Other diseases of lung, not elsewhere classified Pleural effusion Unspecified pleural effusion [facility] Diagnosis Pleural effusion, left- Primary Unspecified pleural effusion Pulmonary hypertension (HCC) Other chronic pulmonary heart diseases [facility]* Diagnosis Restrictive lung disease- Primary Other diseases of lung, not elsewhere classified History of pulmonary embolism Personal history of pulmonary embolism 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) Bronchiectasis without complication (HCC) Bronchiectasis without acute exacerbation Simple chronic bronchitis (HCC) Simple chronic bronchitis [facility]* Diagnosis Dysphagia, unspecified type- Primary [facility]* Diagnosis Dysphagia, unspecified type [facility]* Diagnosis Encounter for palliative care- Primary Muscle cramps Cramp of limb Nodular sclerosing Hodgkin's lymphoma, unspecified body region (HCC) Arthritis pain Arthropathy, unspecified, site unspecified 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 Cancer related pain Neoplasm related pain (acute) (chronic) [facility]* Diagnosis Dysphagia, unspecified type Gastroesophageal reflux disease, unspecified whether esophagitis present [facility]* Diagnosis Pain- Primary Generalized pain [facility]* Diagnosis Muscle cramps Cramp of limb Nodular sclerosing Hodgkin's lymphoma, 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 Cancer related pain Neoplasm related pain (acute) (chronic) Encounter for palliative care [facility] Diagnosis 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 Restrictive lung disease Other diseases of lung, not elsewhere classified Anxiety and depression Dysthymic disorder [facility]* Diagnosis Pneumonia due to infectious organism, unspecified laterality, unspecified part of lung- Primary Pulmonary hypertension (HCC) Other chronic pulmonary heart diseases Hospital discharge follow-up Other follow-up examination [facility]* Diagnosis Muscle cramps- Primary Cramp of limb Nodular sclerosing Hodgkin's lymphoma, 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 Encounter for palliative care Psoriatic arthritis (HCC) Psoriatic arthropathy Arthritis pain Arthropathy, unspecified, site unspecified Chronic nonmalignant pain Opioid use agreement exists Encounters for other specified administrative purpose documented in this encounter [facility] note* Diagnosis Dyspnea on exertion Other dyspnea and respiratory abnormality [facility]* Diagnosis Dyspnea on exertion Other dyspnea and respiratory abnormality Bronchitis Bronchitis, not specified as acute or chronic [facility] Diagnosis 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 Cancer related pain Neoplasm related pain (acute) (chronic) Encounter for palliative care [facility] Diagnosis Tendinitis, de Quervain's- Primary Radial styloid tenosynovitis [facility]* Diagnosis Dysphagia, unspecified type Hoarseness Dysphonia LPRD (laryngopharyngeal reflux disease) Other diseases of larynx [facility]* Diagnosis Encounter for palliative care- Primary Muscle cramps Cramp of limb Nodular sclerosing Hodgkin's lymphoma, unspecified body region (HCC) Opioid use agreement exists Encounters for other specified administrative purpose Chronic nonmalignant pain 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) Psoriatic arthritis (HCC) Psoriatic arthropathy documented in this encounter [facility] note* Diagnosis Muscle cramps Cramp of limb Nodular sclerosis classical Hodgkin lymphoma (HCC) Hodgkin's disease, nodular sclerosis, unspecified site, extranodal and solid organ sites [facility]* Diagnosis Muscle cramps Cramp of limb Nodular sclerosing Hodgkin's lymphoma, 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 Cancer related pain Neoplasm related pain (acute) (chronic) Encounter for palliative care documented in this encounter [facility] note* Diagnosis Polyarthralgia- Primary Pain in joint, multiple sites Psoriasis Other psoriasis Polyarthralgia Pain in joint, multiple sites documented in this encounter [facility] note* Diagnosis Polyarthralgia Pain in joint, multiple sites documented in this encounter [facility] note* Diagnosis Pulmonary hypertension (HCC)- Primary Other chronic pulmonary heart diseases documented in this encounter [facility] note* Diagnosis Encounter for palliative care- Primary 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 Cancer related pain Neoplasm related pain (acute) (chronic) Chronic pain syndrome [facility] [employer] Other History general Narrative - Reported* Type Description Date Medical History Hodgkin lymphoma of lymph nodes of neck, unspecified Hodgkin lymphoma type Medical History Hypothyroid Medical History Tachycardia Medical History Neuropathy Medical History Pulmonary embolism Medical History 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 Surgical History biopsy Hospitalization History she has had several stay s for her dx [facility] Other Reason for referral (narrative)* Diagnostic Procedure Only (Routine) - Authorized Specialty Diagnoses / Procedures Referred By Heidi t Referred To Contact MOLECULAR & FUNCTIONAL IMAGING Diagnoses Hodgkin lymphoma, unspecified Hodgkin lymphoma type, unspecified body region (HCC) 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) Procedures NM PET/CT SKULL-THIGH SUBSEQUENT PET IMAGING CT ATTENUATION [place] [address] [place] [address] Molecular & Functional Imaging [address] [phone] Referral ID Status Reason Start Date Expiration Date Visits Requested Visits Authorized [id number] Authorized Auto-Generat ed Referral 06/14/2021 07/14/2022 1 1 [facility] for referral (narrative)* Diagnostic Procedure Only (Routine) - Authorized Specialty Diagnoses / Procedures Referred By Contac t Referred To Contact MOLECULAR & FUNCTIONAL IMAGING Diagnoses Nodular sclerosing Hodgkin's lymphoma, unspecified body region (HCC) Procedures NM PET/CT SKULL-THIGH SUBSEQUENT PET IMAGING CT ATTENUATION [place] [address] [address] [phone] Molecular & Functional Imaging [address] [phone] Referral ID Status Reason Start Date Expiration Date Visits Requested Visits Authorized [id number] Authorized Auto-Generat ed Referral 11/15/2021 12/15/2022 1 1 [facility] for referral (narrative)* Outpatient Procedure (Routine) - Pending Review Specialty Diagnoses / Procedures Referred By Contac t Referred To Contact [facility] Diagnoses Nodular sclerosing Hodgkin's lymphoma, unspecified body region (HCC) JOE (dyspnea on exertion) Chronic cough Procedures ECHO ECHO TTHRC R-T 2D W/WOM-MODE COMPL SPEC&COLR D Sylvia Mancilla, TELEPHONE ANSWERING SERVICE OPERATOR.INTERNET MARKETING CONSULTANT [address] [place] [address] [facility] [place] [address] [place] [address] Referral ID Status Reason Start Date Expiration Date Visits Requested Visits Authorized [id number] Pending Review Auto-Generat ed Referral 12/27/2021 12/27/2022 1 1 [facility] for referral (narrative)* Diagnostic Procedure Only (Routine) - Pending Review Specialty Diagnoses / Procedures Referred By Contac t Referred To Contact MOLECULAR & FUNCTIONAL IMAGING Diagnoses Nodular sclerosing Hodgkin's lymphoma, unspecified body region (HCC) Procedures NM PET/CT SKULL-THIGH SUBSEQUENT PET IMAGING CT ATTENUATION [place] [address] [address] [phone] [facility] [address] [phone] Referral ID Status Reason Start Date Expiration Date Visits Requested Visits Authorized [id number] Pending Review Auto-Generat ed Referral 07/18/2022 08/17/2023 1 1 [facility] for referral (narrative)* Outpatient Procedure (Routine) - Authorized Specialty Diagnoses / Procedures [facility] Diagnoses Bronchitis Procedures NITRIC OXIDE, EXHALED NITRIC OXIDE GAS DETERMINATION Ella Pretty APRN.CNP [address] [place] [address] [facility] [place] [address] [place] [address] Referral ID Status Reason Start Date Expiration Date Visits Requested Visits Authorized [id number] Authorized Auto-Generat ed Referral 08/02/2022 09/01/2023 1 1 * Outpatient Procedure (Routine) - Authorized Specialty Diagnoses / Procedures [facility] Diagnoses Chronic cough Procedures LUNG DIFFUSION CAPACITY (DLCO) DIFFUSING CAPACITY Ella Pretty APRN.CNP [address] [phone] [facility] [place] [address] [place] [address] Referral ID Status Reason Start Date Expiration Date Visits Requested Visits Authorized [id number] Authorized Auto-Generat ed Referral 08/02/2022 09/01/2023 1 1 * Outpatient Procedure (Routine) - Authorized Specialty Diagnoses / Procedures Referred By Contac t Referred To Contact [facility] Diagnoses Chronic cough Procedures SPIROMETRY - BASELINE AND POST DILATOR BRNCDILAT RSPSE SPMTRY PRE&POST-BRNCDILAT ADMElla Cuevas APRN.CNP [address] [place] [address] [place] [address] Referral ID Status Reason Start Date Expiration Date Visits Requested Visits Authorized [id number] Authorized Auto-Generat ed Referral 08/02/2022 09/01/2023 1 1 [facility] for referral (narrative)* Diagnostic Procedure Only (Routine) - Pending Review Specialty Diagnoses / Procedures Referred By Contac t Referred To Contact MOLECULAR & FUNCTIONAL IMAGING 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) Procedures NM PET/CT SKULL-THIGH SUBSEQUENT PET IMAGING CT ATTENUATION SK[place] [address] [place] [address] [facility] [address] [place] [address] Referral ID Status Reason Start Date Expiration Date Visits Requested Visits Authorized [id number] Pending Review Auto-Generat ed Referral 08/22/2022 09/21/2023 1 1 [facility] for referral (narrative)* Diagnostic Procedure Only (Routine) - Authorized Specialty Diagnoses / Procedures Referred By Contac t Referred To Contact MOLECULAR & FUNCTIONAL IMAGING Diagnoses 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) Procedures NM PET/CT SKULL-THIGH SUBSEQUENT PET IMAGING CT ATTENUATION SKULL BASE MID-THIGH Alexsander Ledezma MD [address] [place] [address] [place] [address] Molecular [facility] Imaging [address] [place] [address] Referral ID Status Reason Start Date Expiration Date Visits Requested Visits Authorized [id number] Authorized Auto-Generat ed Referral 01/31/2024 1 1 [facility] for referral (narrative)* Diagnostic Procedure Only (Routine) - Pending Review Specialty Diagnoses / Procedures Referred By Contac t Referred To Contact XR IMAGING Diagnoses Dysphagia, unspecified type Gastroesophageal reflux disease, unspecified whether esophagitis present Procedures XR ESOPHAGRAM RADIOLOGIC EXAM ESOPHAGUS SINGLE CONTRAST STUDY Loy Merino PA-C [address] [place] [address] [facility] [address] [place] [address] Referral ID Status Reason Start Date Expiration Date Visits Requested Visits Authorized [id number] Pending Review Auto-Generat ed Referral 05/22/2023 06/20/2024 1 1 * Diagnostic Procedure Only (Routine) - Authorized Specialty Diagnoses / Procedures [facility] Referred To Contact XR IMAGING Diagnoses Dysphagia, unspecified type Procedures XR MODIFIED BARIUM SWALLOW W SPEECH THERAPY RADIOLOGIC EXAM SWALLOW FUNCTION CONTRAST STUDY Loy Merino PA-C [address] [address] [phone] Xr Imaging [facility] Referral ID Status Reason Start Date Expiration Date Visits Requested Visits Authorized [id number] Authorized Auto-Generat ed Referral 05/22/2023 06/20/2024 1 1 [facility] for referral (narrative)* Diagnostic Procedure Only (Routine) - Closed Specialty Diagnoses / Procedures [facility] Referred To Contact XR IMAGING Diagnoses Dysphagia, unspecified type Procedures XR MODIFIED BARIUM SWALLOW W SPEECH THERAPY RADIOLOGIC EXAM SWALLOW FUNCTION CONTRAST STUDY Loy Merino PA-C [address] [place] [address] [place] [address] Referral ID Status Reason Start Date Expiration Date V isits Requested Visits Authorized [id number] Closed Auto-Generate d Referral 05/22/2023 06/20/2024 1 1 [facility] for referral (narrative)* Diagnostic Procedure Only (Routine) - Closed Specialty Diagnoses / Procedures Referred By Contac t Referred To Contact XR IMAGING Diagnoses Dysphagia, unspecified type Gastroesophageal reflux disease, unspecified whether esophagitis present Procedures XR ESOPHAGRAM RADIOLOGIC EXAM ESOPHAGUS SINGLE CONTRAST STUDY Loy Merino PA-C [address] [address] [phone] [place] [address] Referral ID Status Reason Start Date Expiration Date V isits Requested Visits Authorized [id number] Closed Auto-Generate d Referral 05/22/2023 06/20/2024 1 1 [facility] for referral (narrative)* Diagnostic Procedure Only (Routine) - Pending Review Specialty Diagnoses / Procedures Referred By Contac t Referred To Contact XR IMAGING Diagnoses Pain Procedures XR WRIST GENERAL 3V PA/LAT/OBL RIGHT RADEX WRIST COMPLETE MINIMUM 3 VIEWS Sherly Bruner PA-C [address] [place] [address] [place] [address] Referral ID Status Reason Start Date Expiration Date Visits Requested Visits Authorized [id number] Pending Review Auto-Generat ed Referral 07/31/2023 08/28/2024 1 1 [facility] for referral (narrative)* Outpatient Procedure (Routine) - Authorized Specialty Diagnoses / Procedures Referred By Contac t Referred To Contact [facility] Diagnoses Pulmonary hypertension (HCC) Procedures OXIMETRY WITH AMBULATION NONINVASIVE EAR/PULSE OXIMETRY MULTIPLE Radha Barrios, LORY.INTERNET MARKETING CONSULTANT [address] [place] [address] [facility] [place] [address] [facility] [place] [phone] Referral ID Status Reason Start Date Expiration Date Visits Requested Visits Authorized [id number] Authorized Auto-Generat ed Referral 08/06/2023 09/04/2024 1 1 [facility] for referral (narrative)* Diagnostic Procedure Only (Routine) - Closed Specialty Diagnoses / Procedures Referred By Contac t Referred To Contact XR IMAGING Diagnoses Polyarthralgia Procedures XR FOOT GENERAL 3V AP/LAT/OBL BILATERAL RADEX FOOT COMPLETE MINIMUM 3 VIEWS Simin Brandt MD [address] [phone] Xr Imaging [facility] Referral ID Status Reason Start Date Expiration Date V isits Requested Visits Authorized [id number] Closed Auto-Generate d Referral 10/09/2023 11/07/2024 1 1 * Diagnostic Procedure Only (Routine) - Closed Specialty Diagnoses / Procedures Referred By Contac t Referred To Contact XR IMAGING Diagnoses Polyarthralgia Procedures XR HAND GENERAL 3V PA/LAT/OBL BILATERAL RADEX HAND MINIMUM 3 VIEWS Simin Brandt MD [address] [phone] X[facility] Imaging [facility] Referral ID Status Reason Start Date Expiration Date V isits Requested Visits Authorized [id number] Closed Auto-Generate d Referral 10/09/2023 11/07/2024 1 1 * Diagnostic Procedure Only (Routine) - Closed Specialty Diagnoses / Procedures Referred By Contac t Referred To Contact XR IMAGING Diagnoses Polyarthralgia Procedures XR KNEE GENERAL 4V AP BOTH/PA BOTH/LAT/MERC BILATERAL RADIOLOGIC EXAM KNEE COMPLETE 4/MORE VIEWS Simin Brandt MD [address] [phone] X[facility] Imaging [facility] Referral ID Status Reason Start Date Expiration Date V isits Requested Visits Authorized [id number] Closed Auto-Generate d Referral 10/09/2023 11/07/2024 1 1 * Diagnostic Procedure Only (Routine) - Closed Specialty Diagnoses / Procedures Referred By Contac t Referred To Contact XR IMAGING Diagnoses Polyarthralgia Procedures XR SACROILIAC JOINTS 2V AP PELVIS/FERGUESON RADIOLOGIC EXAMINATION SACROILIAC JNTS <3 VIEWS Simin Brandt MD [address] [place] [address] [place] [address] Referral ID Status Reason Start Date Expiration Date V isits Requested Visits Authorized [id number] Closed Auto-Generate d Referral 10/09/2023 11/07/2024 1 1 [facility] for referral (narrative)* Diagnostic Procedure Only (Routine) - Closed Specialty Diagnoses / Procedures Referred By Contac t Referred To Contact XR IMAGING Diagnoses Polyarthralgia Procedures XR FOOT GENERAL 3V AP/LAT/OBL BILATERAL RADEX FOOT COMPLETE MINIMUM 3 VIEWS Simin Brandt MD [address] [place] [address] [facility] [place] [facility] Referral ID Status Reason Start Date Expiration Date V isits Requested Visits Authorized [id number] Closed Auto-Generate d Referral 10/09/2023 11/07/2024 1 1 * Diagnostic Procedure Only (Routine) - Closed Specialty Diagnoses / Procedures Referred By Contac t Referred To Contact XR IMAGING Diagnoses Polyarthralgia Procedures XR HAND GENERAL 3V PA/LAT/OBL BILATERAL RADEX HAND MINIMUM 3 VIEWS Simin Brnadt MD [address] [place] [address] [place] [address] Referral ID Status Reason Start Date Expiration Date V isits Requested Visits Authorized [id number] Closed Auto-Generate d Referral 10/09/2023 11/07/2024 1 1 * Diagnostic Procedure Only (Routine) - Closed Specialty Diagnoses / Procedures Referred By Contac t Referred To Contact XR IMAGING Diagnoses Polyarthralgia Procedures XR KNEE GENERAL 4V AP BOTH/PA BOTH/LAT/MERC BILATERAL RADIOLOGIC EXAM KNEE COMPLETE 4/MORE VIEWS Simin Brandt MD [address] [phone] [place] [address] Referral ID Status Reason Start Date Expiration Date V isits Requested Visits Authorized [id number] Closed Auto-Generate d Referral 10/09/2023 11/07/2024 1 1 * Diagnostic Procedure Only (Routine) - Closed Specialty Diagnoses / Procedures Referred By Contac t Referred To Contact XR IMAGING Diagnoses Polyarthralgia Procedures XR SACROILIAC JOINTS 2V AP PELVIS/FERGUESON RADIOLOGIC EXAMINATION SACROILIAC JNTS <3 VIEWS Simin Brandt MD [address] [phone] [place] [address] Referral ID Status Reason Start Date Expiration Date V isits Requested Visits Authorized [id number] Closed Auto-Generate d Referral 10/09/2023 11/07/2024 1 1 [facility] for visit Narrative* Diagnostic Procedure Only (Routine) - Closed Specialty Diagnoses / Procedures Referred By Contac t Referred To Contact XR IMAGING Diagnoses Dysphagia, unspecified type Procedures XR MODIFIED BARIUM SWALLOW W SPEECH THERAPY RADIOLOGIC EXAM SWALLOW FUNCTION CONTRAST STUDY Loy Merino PA-C [address] [place] [address] [place] [address] Referral ID Status Reason Start Date Expiration Date V isits Requested Visits Authorized [id number] Closed Auto-Generate d Referral 05/22/2023 06/20/2024 1 1 [facility] for visit Narrative* Diagnostic Procedure Only (Routine) - Closed Specialty Diagnoses / Procedures Referred By Contac t Referred To Contact XR IMAGING Diagnoses Polyarthralgia Procedures XR FOOT GENERAL 3V AP/LAT/OBL BILATERAL RADEX FOOT COMPLETE MINIMUM 3 VIEWS Simin Brandt MD [address] [place] [address] [place] [address] Referral ID Status Reason Start Date Expiration Date V isits Requested Visits Authorized [id number] Closed Auto-Generate d Referral 10/09/2023 11/07/2024 1 1 [facility] Summary Purpose Family History No Family History Records FoundNo Family History Records FoundNo Family History Records FoundNo Family History Records FoundNo Family History Records FoundNo Family History Records FoundNo Family History Records FoundNo Family History Records FoundNo Family History Records FoundNo Family History Records Found Advance Directives Documents on File Type Date Recorded Patient Reimbursement Liaison Expl anation Advance Directive(s) 09/30/2017 12:34 PM Advance Directive(s) 04/16/2016 9:44 PM Advance Directive(s) 01/28/2016 8:20 PM Documents on File Type Date Recorded Patient Reimbursement Liaison Expl anation Advance Directive(s) 09/30/2017 12:34 PM Advance Directive(s) 04/16/2016 9:44 PM Advance Directive(s) 01/28/2016 8:20 PM Documents on File Type Date Recorded Patient Reimbursement Liaison Expl anation Advance Directive(s) 09/20/2021 8:56 PM [...] Referred By Contac t Referred To Contact Pain Management Diagnoses Chronic pain syndrome Procedures CONSULT TO PAIN MGT OFFICE/OUTPATIENT [facility] 60 MINUTES Juan Francisco Hutchinson, LORY.[facility] [address] [phone] Referral ID Status Reason Start Date Expiration Date Visits Requested Visits Authorized [id number] Authorized PCP Requested Referral 10/17/2023 10/16/2024 1 1 Specialty Diagnoses / Procedures Referred By Contac t Referred To Contact Gastroenterology Diagnoses Dysphagia, unspecified type Procedures CONSULT TO GASTROENTEROLOGY OFFICE/OUTPATIENT [facility] 60 MINUTES Loy Merino PA-C [address] [place] [address] Referral ID Status Reason Start Date Expiration Date Visits Requested Visits Authorized [id number] Authorized PCP Requested Referral 09/18/2023 09/17/2024 1 1 Specialty Diagnoses / Procedures Referred By Contac t Referred To Contact [facility] Diagnoses Hoarseness Procedures CONSULT TO SPEECH THERAPY OFFICE/OUTPATIENT [facility] 60 MINUTES Loy Merino PA-C [address] [place] [address] [facility] [place] [address] Referral ID Status Reason Start Date Expiration Date Visits Requested Visits Authorized [id number] Authorized Auto-Generat ed Referral 02/18/2023 02/18/2024 99 99 Specialty Diagnoses / Procedures Referred By Contac t Referred To Contact Cardiology Diagnoses Pleural effusion, left Pulmonary hypertension (HCC) Procedures CONSULT TO CARDIOLOGY OFFICE/OUTPATIENT [facility] 60 MINUTES Radha Ruano, TELEPHONE ANSWERING SERVICE OPERATOR.INTERNET MARKETING CONSULTANT [address] [place] [address] Referral ID Status Reason Start Date Expiration Date Visits Requested Visits Authorized [id number] Authorized PCP Requested Referral 06/14/2023 06/13/2024 1 1 Specialty Diagnoses / Procedures Referred By Contac t Referred To Contact US IMAGING Diagnoses Pleural effusion, left Procedures US CHEST EFFUSION SURVEY US CHEST REAL TIME W/IMAGE DOCUMENTATION SandraRaffi jiah, TELEPHONE ANSWERING SERVICE OPERATOR.INTERNET MARKETING CONSULTANT [address] [place] [address] [place] [address] Referral ID Status Reason Start Date Expiration Date Visits Requested Visits Authorized [id number] Authorized Auto-Generat ed Referral 06/14/2023 07/13/2024 1 1 Specialty Diagnoses / Procedures Referred By Contac t Referred To Contact Diagnoses Bronchitis Restrictive lung disease Irasemabrandyn Radha, TELEPHONE ANSWERING SERVICE OPERATOR.INTERNET MARKETING CONSULTANT [address] [place] [address] Referral ID Status Reason Start Date Expiration Date Visits Re quested Visits Authorized [id number] Denied 1 1 Specialty Diagnoses / Procedures Referred By Contac t Referred To Contact Ent - Otolaryngology Diagnoses Dysphagia, unspecified type Hoarseness Procedures CONSULT TO ENT OFFICE/OUTPATIENT [facility] 60 MINUTES Kylie Nunes, TELEPHONE ANSWERING SERVICE OPERATOR.INTERNET MARKETING CONSULTANT [address] [place] [address] Referral ID Status Reason Start Date Expiration Date Visits Requested Visits Authorized [id number] Authorized PCP Requested Referral 03/28/2023 03/27/2024 1 1 Specialty Diagnoses / Procedures Referred By Contac t Referred To Contact CT IMAGING Diagnoses Acute cough Procedures CT CHEST WO IVCON DIAGNOSTIC COMPUTED TOMOGRAPHY THORAX W/[place] [address] [place] [address] Ct Imaging Referral ID Status Reason Start Date Expiration Date V isits Requested Visits Authorized [id number] Closed Auto-Generate d Referral 05/22/2022 06/21/2023 1 1 Additional Source Comments INFORMATION SOURCE (unrecogn ized section and content) DATE CREATED AUTHOR 03/03/2019 [facility] DATE CREATED AUTHOR AUTHOR'S ORGANIZ ATION 09/22/2019 [facility] DATE CREATED AUTHOR AUTHOR'S ORGANIZ ATION 04/19/2021 [facility] DATE CREATED AUTHOR AUTHOR'S ORGANIZ ATION 07/08/2021 [facility] DATE CREATED AUTHOR AUTHOR'S ORGANIZ ATION 06/23/2022 [facility] DATE CREATED AUTHOR AUTHOR'S ORGANIZ ATION 10/19/2022 [facility] DATE CREATED AUTHOR AUTHOR'S ORGANIZ ATION 03/29/2023 [facility] DATE CREATED AUTHOR AUTHOR'S ORGANIZ ATION 07/12/2023 [facility] DATE CREATED AUTHOR AUTHOR'S ORGANIZ ATION 08/26/2023 [facility] EPIC DATE CREATED AUTHOR AUTHOR'S ORGANIZ ATION 10/17/2023 [facility] Source Comments (unrecognize d section and content) In the event this informatio n is protected by the Federal Confidentiality of Alcohol and Drug Abuse Patient Records regulations: The Federal rules restrict any use of the information to criminally investigate or prosecute any alcohol or drug abuse patient.[facility] the event this information is protected by the Federal Confidentiality of Alcohol and Drug Abuse Patient Records regulations: The Federal rules restrict any use of the information to criminally investigate or prosecute any alcohol or drug abuse patient.[facility] the event this information is protected by the Federal Confidentiality of Alcohol and Drug Abuse Patient Records regulations: The Federal rules restrict any use of the information to criminally investigate or prosecute any alcohol or drug abuse patient.[facility] the event this information is protected by the Federal Confidentiality of Alcohol and Drug Abuse Patient Records regulations: The Federal rules restrict any use of the information to criminally investigate or prosecute any alcohol or drug abuse patient.[facility] the event this information is protected by the Federal Confidentiality of Alcohol and Drug Abuse Patient Records regulations: The Federal rules restrict any use of the information to criminally investigate or prosecute any alcohol or drug abuse patient.[facility] the event this information is protected by the Federal Confidentiality of Alcohol and Drug Abuse Patient Records regulations: The Federal rules restrict any use of the information to criminally investigate or prosecute any alcohol or drug abuse patient.[facility] the event this information is protected by the Federal Confidentiality of Alcohol and Drug Abuse Patient Records regulations: The Federal rules restrict any use of the information to criminally investigate or prosecute any alcohol or drug abuse patient.[facility] the event this information is protected by the Federal Confidentiality of Alcohol and Drug Abuse Patient Records regulations: The Federal rules restrict any use of the information to criminally investigate or prosecute any alcohol or drug abuse patient.[facility] the event this information is protected by the Federal Confidentiality of Alcohol and Drug Abuse Patient Records regulations: The Federal rules restrict any use of the information to criminally investigate or prosecute any alcohol or drug abuse patient.[facility] the event this information is protected by the Federal Confidentiality of Alcohol and Drug Abuse Patient Records regulations: The Federal rules restrict any use of the information to criminally investigate or prosecute any alcohol or drug abuse patient.[facility] the event this information is protected by the Federal Confidentiality of Alcohol and Drug Abuse Patient Records regulations: The Federal rules restrict any use of the information to criminally investigate or prosecute any alcohol or drug abuse patient.[facility] the event this information is protected by the Federal Confidentiality of Alcohol and Drug Abuse Patient Records regulations: The Federal rules restrict any use of the information to criminally investigate or prosecute any alcohol or drug abuse patient.[facility] the event this information is protected by the Federal Confidentiality of Alcohol and Drug Abuse Patient Records regulations: The Federal rules restrict any use of the information to criminally investigate or prosecute any alcohol or drug abuse patient.[facility] the event this information is protected by the Federal Confidentiality of Alcohol and Drug Abuse Patient Records regulations: The Federal rules restrict any use of the information to criminally investigate or prosecute any alcohol or drug abuse patient.[facility] the event this information is protected by the Federal Confidentiality of Alcohol and Drug Abuse Patient Records regulations: The Federal rules restrict any use of the information to criminally investigate or prosecute any alcohol or drug abuse patient.[facility]In the event this information is protected by the Federal Confidentiality of Alcohol and Drug Abuse Patient Records regulations: The Federal rules restrict any use of the information to criminally investigate or prosecute any alcohol or drug abuse patient.[facility] HospitalIn the event this information is protected by the Federal Confidentiality of Alcohol and Drug Abuse Patient Records regulations: The Federal rules restrict any use of the information to criminally investigate or prosecute any alcohol or drug abuse patient.[facility] HospitalIn the event this information is protected by the Federal Confidentiality of Alcohol and Drug Abuse Patient Records regulations: The Federal rules restrict any use of the information to criminally investigate or prosecute any alcohol or drug abuse patient.[facility] HospitalIn the event this information is protected by the Federal Confidentiality of Alcohol and Drug Abuse Patient Records regulations: The Federal rules restrict any use of the information to criminally investigate or prosecute any alcohol or drug abuse patient.[facility] HospitalIn the event this information is protected by the Federal Confidentiality of Alcohol and Drug Abuse Patient Records regulations: The Federal rules restrict any use of the information to criminally investigate or prosecute any alcohol or drug abuse patient.[facility] HospitalIn the event this information is protected by the Federal Confidentiality of Alcohol and Drug Abuse Patient Records regulations: The Federal rules restrict any use of the information to criminally investigate or prosecute any alcohol or drug abuse patient.[facility] HospitalIn the event this information is protected by the Federal Confidentiality of Alcohol and Drug Abuse Patient Records regulations: The Federal rules restrict any use of the information to criminally investigate or prosecute any alcohol or drug abuse patient.[facility]In the event this information is protected by the Federal Confidentiality of Alcohol and Drug Abuse Patient Records regulations: The Federal rules restrict any use of the information to criminally investigate or prosecute any alcohol or drug abuse patient.[facility] HospitalIn the event this information is protected by the Federal Confidentiality of Alcohol and Drug Abuse Patient Records regulations: The Federal rules restrict any use of the information to criminally investigate or prosecute any alcohol or drug abuse patient.[facility]In the event this information is protected by the Federal Confidentiality of Alcohol and Drug Abuse Patient Records regulations: The Federal rules restrict any use of the information to criminally investigate or prosecute any alcohol or drug abuse patient.[facility] HospitalIn the event this information is protected by the Federal Confidentiality of Alcohol and Drug Abuse Patient Records regulations: The Federal rules restrict any use of the information to criminally investigate or prosecute any alcohol or drug abuse patient.[facility] HospitalIn the event this information is protected by the Federal Confidentiality of Alcohol and Drug Abuse Patient Records regulations: The Federal rules restrict any use of the information to criminally investigate or prosecute any alcohol or drug abuse patient.[facility] HospitalIn the event this information is protected by the Federal Confidentiality of Alcohol and Drug Abuse Patient Records regulations: The Federal rules restrict any use of the information to criminally investigate or prosecute any alcohol or drug abuse patient.[facility] HospitalIn the event this information is protected by the Federal Confidentiality of Alcohol and Drug Abuse Patient Records regulations: The Federal rules restrict any use of the information to criminally investigate or prosecute any alcohol or drug abuse patient.[facility] HospitalIn the event this information is protected by the Federal Confidentiality of Alcohol and Drug Abuse Patient Records regulations: The Federal rules restrict any use of the information to criminally investigate or prosecute any alcohol or drug abuse patient.[facility] HospitalIn the event this information is protected by the Federal Confidentiality of Alcohol and Drug Abuse Patient Records regulations: The Federal rules restrict any use of the information to criminally investigate or prosecute any alcohol or drug abuse patient.[facility] HospitalIn the event this information is protected by the Federal Confidentiality of Alcohol and Drug Abuse Patient Records regulations: The Federal rules restrict any use of the information to criminally investigate or prosecute any alcohol or drug abuse patient.[facility] HospitalIn the event this information is protected by the Federal Confidentiality of Alcohol and Drug Abuse Patient Records regulations: The Federal rules restrict any use of the information to criminally investigate or prosecute any alcohol or drug abuse patient.[facility] HospitalIn the event this information is protected by the Federal Confidentiality of Alcohol and Drug Abuse Patient Records regulations: The Federal rules restrict any use of the information to criminally investigate or prosecute any alcohol or drug abuse patient.[facility] HospitalIn the event this information is protected by the Federal Confidentiality of Alcohol and Drug Abuse Patient Records regulations: The Federal rules restrict any use of the information to criminally investigate or prosecute any alcohol or drug abuse patient.[facility] HospitalIn the event this information is protected by the Federal Confidentiality of Alcohol and Drug Abuse Patient Records regulations: The Federal rules restrict any use of the information to criminally investigate or prosecute any alcohol or drug abuse patient.[facility] HospitalIn the event this information is protected by the Federal Confidentiality of Alcohol and Drug Abuse Patient Records regulations: The Federal rules restrict any use of the information to criminally investigate or prosecute any alcohol or drug abuse patient.[facility] HospitalIn the event this information is protected by the Federal Confidentiality of Alcohol and Drug Abuse Patient Records regulations: The Federal rules restrict any use of the information to criminally investigate or prosecute any alcohol or drug abuse patient.[facility] HospitalIn the event this information is protected by the Federal Confidentiality of Alcohol and Drug Abuse Patient Records regulations: The Federal rules restrict any use of the information to criminally investigate or prosecute any alcohol or drug abuse patient.[facility] HospitalIn the event this information is protected by the Federal Confidentiality of Alcohol and Drug Abuse Patient Records regulations: The Federal rules restrict any use of the information to criminally investigate or prosecute any alcohol or drug abuse patient.[facility] HospitalIn the event this information is protected by the Federal Confidentiality of Alcohol and Drug Abuse Patient Records regulations: The Federal rules restrict any use of the information to criminally investigate or prosecute any alcohol or drug abuse patient.[facility] HospitalIn the event this information is protected by the Federal Confidentiality of Alcohol and Drug Abuse Patient Records regulations: The Federal rules restrict any use of the information to criminally investigate or prosecute any alcohol or drug abuse patient.[facility] HospitalIn the event this information is protected by the Federal Confidentiality of Alcohol and Drug Abuse Patient Records regulations: The Federal rules restrict any use of the information to criminally investigate or prosecute any alcohol or drug abuse patient.[facility] HospitalIn the event this information is protected by the Federal Confidentiality of Alcohol and Drug Abuse Patient Records regulations: The Federal rules restrict any use of the information to criminally investigate or prosecute any alcohol or drug abuse patient.[facility] HospitalIn the event this information is protected by the Federal Confidentiality of Alcohol and Drug Abuse Patient Records regulations: The Federal rules restrict any use of the information to criminally investigate or prosecute any alcohol or drug abuse patient.[facility] HospitalIn the event this information is protected by the Federal Confidentiality of Alcohol and Drug Abuse Patient Records regulations: The Federal rules restrict any use of the information to criminally investigate or prosecute any alcohol or drug abuse patient.[facility] HospitalIn the event this information is protected by the Federal Confidentiality of Alcohol and Drug Abuse Patient Records regulations: The Federal rules restrict any use of the information to criminally investigate or prosecute any alcohol or drug abuse patient.[facility] HospitalIn the event this information is protected by the Federal Confidentiality of Alcohol and Drug Abuse Patient Records regulations: The Federal rules restrict any use of the information to criminally investigate or prosecute any alcohol or drug abuse patient.[facility] HospitalIn the event this information is protected by the Federal Confidentiality of Alcohol and Drug Abuse Patient Records regulations: The Federal rules restrict any use of the information to criminally investigate or prosecute any alcohol or drug abuse patient.[facility] HospitalIn the event this information is protected by the Federal Confidentiality of Alcohol and Drug Abuse Patient Records regulations: The Federal rules restrict any use of the information to criminally investigate or prosecute any alcohol or drug abuse patient.[facility] HospitalIn the event this information is protected by the Federal Confidentiality of Alcohol and Drug Abuse Patient Records regulations: The Federal rules restrict any use of the information to criminally investigate or prosecute any alcohol or drug abuse patient.[facility] HospitalIn the event this information is protected by the Federal Confidentiality of Alcohol and Drug Abuse Patient Records regulations: The Federal rules restrict any use of the information to criminally investigate or prosecute any alcohol or drug abuse patient.[facility] HospitalIn the event this information is protected by the Federal Confidentiality of Alcohol and Drug Abuse Patient Records regulations: The Federal rules restrict any use of the information to criminally investigate or prosecute any alcohol or drug abuse patient.[facility] HospitalIn the event this information is protected by the Federal Confidentiality of Alcohol and Drug Abuse Patient Records regulations: The Federal rules restrict any use of the information to criminally investigate or prosecute any alcohol or drug abuse patient.[facility] HospitalIn the event this information is protected by the Federal Confidentiality of Alcohol and Drug Abuse Patient Records regulations: The Federal rules restrict any use of the information to criminally investigate or prosecute any alcohol or drug abuse patient.[facility] HospitalIn the event this information is protected by the Federal Confidentiality of Alcohol and Drug Abuse Patient Records regulations: The Federal rules restrict any use of the information to criminally investigate or prosecute any alcohol or drug abuse patient.[facility] HospitalIn the event this information is protected by the Federal Confidentiality of Alcohol and Drug Abuse Patient Records regulations: The Federal rules restrict any use of the information to criminally investigate or prosecute any alcohol or drug abuse patient.[facility] HospitalIn the event this information is protected by the Federal Confidentiality of Alcohol and Drug Abuse Patient Records regulations: The Federal rules restrict any use of the information to criminally investigate or prosecute any alcohol or drug abuse patient.[facility] HospitalIn the event this information is protected by the Federal Confidentiality of Alcohol and Drug Abuse Patient Records regulations: The Federal rules restrict any use of the information to criminally investigate or prosecute any alcohol or drug abuse patient.[facility] HospitalIn the event this information is protected by the Federal Confidentiality of Alcohol and Drug Abuse Patient Records regulations: The Federal rules restrict any use of the information to criminally investigate or prosecute any alcohol or drug abuse patient.[facility] HospitalIn the event this information is protected by the Federal Confidentiality of Alcohol and Drug Abuse Patient Records regulations: The Federal rules restrict any use of the information to criminally investigate or prosecute any alcohol or drug abuse patient.[facility] HospitalIn the event this information is protected by the Federal Confidentiality of Alcohol and Drug Abuse Patient Records regulations: The Federal rules restrict any use of the information to criminally investigate or prosecute any alcohol or drug abuse patient.[facility] HospitalIn the event this information is protected by the Federal Confidentiality of Alcohol and Drug Abuse Patient Records regulations: The Federal rules restrict any use of the information to criminally investigate or prosecute any alcohol or drug abuse patient.[facility] HospitalIn the event this information is protected by the Federal Confidentiality of Alcohol and Drug Abuse Patient Records regulations: The Federal rules restrict any use of the information to criminally investigate or prosecute any alcohol or drug abuse patient.[facility] HospitalIn the event this information is protected by the Federal Confidentiality of Alcohol and Drug Abuse Patient Records regulations: The Federal rules restrict any use of the information to criminally investigate or prosecute any alcohol or drug abuse patient.[facility] HospitalIn the event this information is protected by the Federal Confidentiality of Alcohol and Drug Abuse Patient Records regulations: The Federal rules restrict any use of the information to criminally investigate or prosecute any alcohol or drug abuse patient.[facility] HospitalIn the event this information is protected by the Federal Confidentiality of Alcohol and Drug Abuse Patient Records regulations: The Federal rules restrict any use of the information to criminally investigate or prosecute any alcohol or drug abuse patient.[facility] HospitalIn the event this information is protected by the Federal Confidentiality of Alcohol and Drug Abuse Patient Records regulations: The Federal rules restrict any use of the information to criminally investigate or prosecute any alcohol or drug abuse patient.[facility] HospitalIn the event this information is protected by the Federal Confidentiality of Alcohol and Drug Abuse Patient Records regulations: The Federal rules restrict any use of the information to criminally investigate or prosecute any alcohol or drug abuse patient.[facility] HospitalIn the event this information is protected by the Federal Confidentiality of Alcohol and Drug Abuse Patient Records regulations: The Federal rules restrict any use of the information to criminally investigate or prosecute any alcohol or drug abuse patient.[facility] HospitalIn the event this information is protected by the Federal Confidentiality of Alcohol and Drug Abuse Patient Records regulations: The Federal rules restrict any use of the information to criminally investigate or prosecute any alcohol or drug abuse patient.[facility] HospitalIn the event this information is protected by the Federal Confidentiality of Alcohol and Drug Abuse Patient Records regulations: The Federal rules restrict any use of the information to criminally investigate or prosecute any alcohol or drug abuse patient.[facility] HospitalIn the event this information is protected by the Federal Confidentiality of Alcohol and Drug Abuse Patient Records regulations: The Federal rules restrict any use of the information to criminally investigate or prosecute any alcohol or drug abuse patient.[facility] HospitalIn the event this information is protected by the Federal Confidentiality of Alcohol and Drug Abuse Patient Records regulations: The Federal rules restrict any use of the information to criminally investigate or prosecute any alcohol or drug abuse patient.[facility]In the event this information is protected by the Federal Confidentiality of Alcohol and Drug Abuse Patient Records regulations: The Federal rules restrict any use of the information to criminally investigate or prosecute any alcohol or drug abuse patient.[facility] HospitalIn the event this information is protected by the Federal Confidentiality of Alcohol and Drug Abuse Patient Records regulations: The Federal rules restrict any use of the information to criminally investigate or prosecute any alcohol or drug abuse patient.[facility] HospitalIn the event this information is protected by the Federal Confidentiality of Alcohol and Drug Abuse Patient Records regulations: The Federal rules restrict any use of the information to criminally investigate or prosecute any alcohol or drug abuse patient.[facility] HospitalIn the event this information is protected by the Federal Confidentiality of Alcohol and Drug Abuse Patient Records regulations: The Federal rules restrict any use of the information to criminally investigate or prosecute any alcohol or drug abuse patient.[facility]In the event this information is protected by the Federal Confidentiality of Alcohol and Drug Abuse Patient Records regulations: The Federal rules restrict any use of the information to criminally investigate or prosecute any alcohol or drug abuse patient.[facility] HospitalIn the event this information is protected by the Federal Confidentiality of Alcohol and Drug Abuse Patient Records regulations: The Federal rules restrict any use of the information to criminally investigate or prosecute any alcohol or drug abuse patient.[facility] HospitalIn the event this information is protected by the Federal Confidentiality of Alcohol and Drug Abuse Patient Records regulations: The Federal rules restrict any use of the information to criminally investigate or prosecute any alcohol or drug abuse patient.[facility] HospitalIn the event this information is protected by the Federal Confidentiality of Alcohol and Drug Abuse Patient Records regulations: The Federal rules restrict any use of the information to criminally investigate or prosecute any alcohol or drug abuse patient.[facility] HospitalIn the event this information is protected by the Federal Confidentiality of Alcohol and Drug Abuse Patient Records regulations: The Federal rules restrict any use of the information to criminally investigate or prosecute any alcohol or drug abuse patient.[facility] HospitalIn the event this information is protected by the Federal Confidentiality of Alcohol and Drug Abuse Patient Records regulations: The Federal rules restrict any use of the information to criminally investigate or prosecute any alcohol or drug abuse patient.[facility]In the event this information is protected by the Federal Confidentiality of Alcohol and Drug Abuse Patient Records regulations: The Federal rules restrict any use of the information to criminally investigate or prosecute any alcohol or drug abuse patient.[facility]In the event this information is protected by the Federal Confidentiality of Alcohol and Drug Abuse Patient Records regulations: The Federal rules restrict any use of the information to criminally investigate or prosecute any alcohol or drug abuse patient.[facility]In the event this information is protected by the Federal Confidentiality of Alcohol and Drug Abuse Patient Records regulations: The Federal rules restrict any use of the information to criminally investigate or prosecute any alcohol or drug abuse patient.[facility]In the event this information is protected by the Federal Confidentiality of Alcohol and Drug Abuse Patient Records regulations: The Federal rules restrict any use of the information to criminally investigate or prosecute any alcohol or drug abuse patient.[facility]In the event this information is protected by the Federal Confidentiality of Alcohol and Drug Abuse Patient Records regulations: The Federal rules restrict any use of the information to criminally investigate or prosecute any alcohol or drug abuse patient.[facility]In the event this information is protected by the Federal Confidentiality of Alcohol and Drug Abuse Patient Records regulations: The Federal rules restrict any use of the information to criminally investigate or prosecute any alcohol or drug abuse patient.[facility]In the event this information is protected by the Federal Confidentiality of Alcohol and Drug Abuse Patient Records regulations: The Federal rules restrict any use of the information to criminally investigate or prosecute any alcohol or drug abuse patient.[facility]In the event this information is protected by the Federal Confidentiality of Alcohol and Drug Abuse Patient Records regulations: The Federal rules restrict any use of the information to criminally investigate or prosecute any alcohol or drug abuse patient.[facility]In the event this information is protected by the Federal Confidentiality of Alcohol and Drug Abuse Patient Records regulations: The Federal rules restrict any use of the information to criminally investigate or prosecute any alcohol or drug abuse patient.[facility]In the event this information is protected by the Federal Confidentiality of Alcohol and Drug Abuse Patient Records regulations: The Federal rules restrict any use of the information to criminally investigate or prosecute any alcohol or drug abuse patient.[facility]In the event this information is protected by the Federal Confidentiality of Alcohol and Drug Abuse Patient Records regulations: The Federal rules restrict any use of the information to criminally investigate or prosecute any alcohol or drug abuse patient.[facility]In the event this information is protected by the Federal Confidentiality of Alcohol and Drug Abuse Patient Records regulations: The Federal rules restrict any use of the information to criminally investigate or prosecute any alcohol or drug abuse patient.[facility]In the event this information is protected by the Federal Confidentiality of Alcohol and Drug Abuse Patient Records regulations: The Federal rules restrict any use of the information to criminally investigate or prosecute any alcohol or drug abuse patient.[facility]In the event this information is protected by the Federal Confidentiality of Alcohol and Drug Abuse Patient Records regulations: The Federal rules restrict any use of the information to criminally investigate or prosecute any alcohol or drug abuse patient.[facility]In the event this information is protected by the Federal Confidentiality of Alcohol and Drug Abuse Patient Records regulations: The Federal rules restrict any use of the information to criminally investigate or prosecute any alcohol or drug abuse patient.[facility]In the event this information is protected by the Federal Confidentiality of Alcohol and Drug Abuse Patient Records regulations: The Federal rules restrict any use of the information to criminally investigate or prosecute any alcohol or drug abuse patient.[facility]In the event this information is protected by the Federal Confidentiality of Alcohol and Drug Abuse Patient Records regulations: The Federal rules restrict any use of the information to criminally investigate or prosecute any alcohol or drug abuse patient.[facility] HospitalIn the event this information is protected by the Federal Confidentiality of Alcohol and Drug Abuse Patient Records regulations: The Federal rules restrict any use of the information to criminally investigate or prosecute any alcohol or drug abuse patient.[facility] HospitalIn the event this information is protected by the Federal Confidentiality of Alcohol and Drug Abuse Patient Records regulations: The Federal rules restrict any use of the information to criminally investigate or prosecute any alcohol or drug abuse patient.[facility] HospitalIn the event this information is protected by the Federal Confidentiality of Alcohol and Drug Abuse Patient Records regulations: The Federal rules restrict any use of the information to criminally investigate or prosecute any alcohol or drug abuse patient.[facility] HospitalIn the event this information is protected by the Federal Confidentiality of Alcohol and Drug Abuse Patient Records regulations: The Federal rules restrict any use of the information to criminally investigate or prosecute any alcohol or drug abuse patient.[facility]In the event this information is protected by the Federal Confidentiality of Alcohol and Drug Abuse Patient Records regulations: The Federal rules restrict any use of the information to criminally investigate or prosecute any alcohol or drug abuse patient.[facility] HospitalIn the event this information is protected by the Federal Confidentiality of Alcohol and Drug Abuse Patient Records regulations: The Federal rules restrict any use of the information to criminally investigate or prosecute any alcohol or drug abuse patient.[facility]In the event this information is protected by the Federal Confidentiality of Alcohol and Drug Abuse Patient Records regulations: The Federal rules restrict any use of the information to criminally investigate or prosecute any alcohol or drug abuse patient.[facility] HospitalIn the event this information is protected by the Federal Confidentiality of Alcohol and Drug Abuse Patient Records regulations: The Federal rules restrict any use of the information to criminally investigate or prosecute any alcohol or drug abuse patient.[facility]In the event this information is protected by the Federal Confidentiality of Alcohol and Drug Abuse Patient Records regulations: The Federal rules restrict any use of the information to criminally investigate or prosecute any alcohol or drug abuse patient.[facility] HospitalIn the event this information is protected by the Federal Confidentiality of Alcohol and Drug Abuse Patient Records regulations: The Federal rules restrict any use of the information to criminally investigate or prosecute any alcohol or drug abuse patient.[facility]In the event this information is protected by the Federal Confidentiality of Alcohol and Drug Abuse Patient Records regulations: The Federal rules restrict any use of the information to criminally investigate or prosecute any alcohol or drug abuse patient.[facility]In the event this information is protected by the Federal Confidentiality of Alcohol and Drug Abuse Patient Records regulations: The Federal rules restrict any use of the information to criminally investigate or prosecute any alcohol or drug abuse patient.[facility] HospitalIn the event this information is protected by the Federal Confidentiality of Alcohol and Drug Abuse Patient Records regulations: The Federal rules restrict any use of the information to criminally investigate or prosecute any alcohol or drug abuse patient.[facility] HospitalIn the event this information is protected by the Federal Confidentiality of Alcohol and Drug Abuse Patient Records regulations: The Federal rules restrict any use of the information to criminally investigate or prosecute any alcohol or drug abuse patient.[facility] HospitalIn the event this information is protected by the Federal Confidentiality of Alcohol and Drug Abuse Patient Records regulations: The Federal rules restrict any use of the information to criminally investigate or prosecute any alcohol or drug abuse patient.[facility] HospitalIn the event this information is protected by the Federal Confidentiality of Alcohol and Drug Abuse Patient Records regulations: The Federal rules restrict any use of the information to criminally investigate or prosecute any alcohol or drug abuse patient.[facility] HospitalIn the event this information is protected by the Federal Confidentiality of Alcohol and Drug Abuse Patient Records regulations: The Federal rules restrict any use of the information to criminally investigate or prosecute any alcohol or drug abuse patient.[facility] HospitalIn the event this information is protected by the Federal Confidentiality of Alcohol and Drug Abuse Patient Records regulations: The Federal rules restrict any use of the information to criminally investigate or prosecute any alcohol or drug abuse patient.[facility] HospitalIn the event this information is protected by the Federal Confidentiality of Alcohol and Drug Abuse Patient Records regulations: The Federal rules restrict any use of the information to criminally investigate or prosecute any alcohol or drug abuse patient.[facility] HospitalIn the event this information is protected by the Federal Confidentiality of Alcohol and Drug Abuse Patient Records regulations: The Federal rules restrict any use of the information to criminally investigate or prosecute any alcohol or drug abuse patient.[facility] HospitalIn the event this information is protected by the Federal Confidentiality of Alcohol and Drug Abuse Patient Records regulations: The Federal rules restrict any use of the information to criminally investigate or prosecute any alcohol or drug abuse patient.[facility] HospitalIn the event this information is protected by the Federal Confidentiality of Alcohol and Drug Abuse Patient Records regulations: The Federal rules restrict any use of the information to criminally investigate or prosecute any alcohol or drug abuse patient.[facility] HospitalIn the event this information is protected by the Federal Confidentiality of Alcohol and Drug Abuse Patient Records regulations: The Federal rules restrict any use of the information to criminally investigate or prosecute any alcohol or drug abuse patient.[facility] HospitalIn the event this information is protected by the Federal Confidentiality of Alcohol and Drug Abuse Patient Records regulations: The Federal rules restrict any use of the information to criminally investigate or prosecute any alcohol or drug abuse patient.[facility] HospitalIn the event this information is protected by the Federal Confidentiality of Alcohol and Drug Abuse Patient Records regulations: The Federal rules restrict any use of the information to criminally investigate or prosecute any alcohol or drug abuse patient.[facility] HospitalIn the event this information is protected by the Federal Confidentiality of Alcohol and Drug Abuse Patient Records regulations: The Federal rules restrict any use of the information to criminally investigate or prosecute any alcohol or drug abuse patient.[facility] HospitalIn the event this information is protected by the Federal Confidentiality of Alcohol and Drug Abuse Patient Records regulations: The Federal rules restrict any use of the information to criminally investigate or prosecute any alcohol or drug abuse patient.[facility] HospitalIn the event this information is protected by the Federal Confidentiality of Alcohol and Drug Abuse Patient Records regulations: The Federal rules restrict any use of the information to criminally investigate or prosecute any alcohol or drug abuse patient.[facility] HospitalIn the event this information is protected by the Federal Confidentiality of Alcohol and Drug Abuse Patient Records regulations: The Federal rules restrict any use of the information to criminally investigate or prosecute any alcohol or drug abuse patient.[facility] HospitalIn the event this information is protected by the Federal Confidentiality of Alcohol and Drug Abuse Patient Records regulations: The Federal rules restrict any use of the information to criminally investigate or prosecute any alcohol or drug abuse patient.[facility] HospitalIn the event this information is protected by the Federal Confidentiality of Alcohol and Drug Abuse Patient Records regulations: The Federal rules restrict any use of the information to criminally investigate or prosecute any alcohol or drug abuse patient.[facility] HospitalIn the event this information is protected by the Federal Confidentiality of Alcohol and Drug Abuse Patient Records regulations: The Federal rules restrict any use of the information to criminally investigate or prosecute any alcohol or drug abuse patient.[facility] HospitalIn the event this information is protected by the Federal Confidentiality of Alcohol and Drug Abuse Patient Records regulations: The Federal rules restrict any use of the information to criminally investigate or prosecute any alcohol or drug abuse patient.[facility] HospitalIn the event this information is protected by the Federal Confidentiality of Alcohol and Drug Abuse Patient Records regulations: The Federal rules restrict any use of the information to criminally investigate or prosecute any alcohol or drug abuse patient.[facility]In the event this information is protected by the Federal Confidentiality of Alcohol and Drug Abuse Patient Records regulations: The Federal rules restrict any use of the information to criminally investigate or prosecute any alcohol or drug abuse patient.[facility] HospitalIn the event this information is protected by the Federal Confidentiality of Alcohol and Drug Abuse Patient Records regulations: The Federal rules restrict any use of the information to criminally investigate or prosecute any alcohol or drug abuse patient.[facility] HospitalIn the event this information is protected by the Federal Confidentiality of Alcohol and Drug Abuse Patient Records regulations: The Federal rules restrict any use of the information to criminally investigate or prosecute any alcohol or drug abuse patient.[facility] HospitalIn the event this information is protected by the Federal Confidentiality of Alcohol and Drug Abuse Patient Records regulations: The Federal rules restrict any use of the information to criminally investigate or prosecute any alcohol or drug abuse patient.[facility] HospitalIn the event this information is protected by the Federal Confidentiality of Alcohol and Drug Abuse Patient Records regulations: The Federal rules restrict any use of the information to criminally investigate or prosecute any alcohol or drug abuse patient.[facility] HospitalIn the event this information is protected by the Federal Confidentiality of Alcohol and Drug Abuse Patient Records regulations: The Federal rules restrict any use of the information to criminally investigate or prosecute any alcohol or drug abuse patient.[facility] HospitalIn the event this information is protected by the Federal Confidentiality of Alcohol and Drug Abuse Patient Records regulations: The Federal rules restrict any use of the information to criminally investigate or prosecute any alcohol or drug abuse patient.[facility] HospitalIn the event this information is protected by the Federal Confidentiality of Alcohol and Drug Abuse Patient Records regulations: The Federal rules restrict any use of the information to criminally investigate or prosecute any alcohol or drug abuse patient.[facility] HospitalIn the event this information is protected by the Federal Confidentiality of Alcohol and Drug Abuse Patient Records regulations: The Federal rules restrict any use of the information to criminally investigate or prosecute any alcohol or drug abuse patient.[facility] HospitalIn the event this information is protected by the Federal Confidentiality of Alcohol and Drug Abuse Patient Records regulations: The Federal rules restrict any use of the information to criminally investigate or prosecute any alcohol or drug abuse patient.[facility] HospitalIn the event this information is protected by the Federal Confidentiality of Alcohol and Drug Abuse Patient Records regulations: The Federal rules restrict any use of the information to criminally investigate or prosecute any alcohol or drug abuse patient.[facility] HospitalIn the event this information is protected by the Federal Confidentiality of Alcohol and Drug Abuse Patient Records regulations: The Federal rules restrict any use of the information to criminally investigate or prosecute any alcohol or drug abuse patient.[facility] HospitalIn the event this information is protected by the Federal Confidentiality of Alcohol and Drug Abuse Patient Records regulations: The Federal rules restrict any use of the information to criminally investigate or prosecute any alcohol or drug abuse patient.[facility] HospitalIn the event this information is protected by the Federal Confidentiality of Alcohol and Drug Abuse Patient Records regulations: The Federal rules restrict any use of the information to criminally investigate or prosecute any alcohol or drug abuse patient.[facility] HospitalIn the event this information is protected by the Federal Confidentiality of Alcohol and Drug Abuse Patient Records regulations: The Federal rules restrict any use of the information to criminally investigate or prosecute any alcohol or drug abuse patient.[facility] HospitalIn the event this information is protected by the Federal Confidentiality of Alcohol and Drug Abuse Patient Records regulations: The Federal rules restrict any use of the information to criminally investigate or prosecute any alcohol or drug abuse patient.[facility] HospitalIn the event this information is protected by the Federal Confidentiality of Alcohol and Drug Abuse Patient Records regulations: The Federal rules restrict any use of the information to criminally investigate or prosecute any alcohol or drug abuse patient.[facility] HospitalIn the event this information is protected by the Federal Confidentiality of Alcohol and Drug Abuse Patient Records regulations: The Federal rules restrict any use of the information to criminally investigate or prosecute any alcohol or drug abuse patient.[facility] HospitalIn the event this information is protected by the Federal Confidentiality of Alcohol and Drug Abuse Patient Records regulations: The Federal rules restrict any use of the information to criminally investigate or prosecute any alcohol or drug abuse patient.[facility]In the event this information is protected by the Federal Confidentiality of Alcohol and Drug Abuse Patient Records regulations: The Federal rules restrict any use of the information to criminally investigate or prosecute any alcohol or drug abuse patient.[facility] HospitalIn the event this information is protected by the Federal Confidentiality of Alcohol and Drug Abuse Patient Records regulations: The Federal rules restrict any use of the information to criminally investigate or prosecute any alcohol or drug abuse patient.[facility] HospitalIn the event this information is protected by the Federal Confidentiality of Alcohol and Drug Abuse Patient Records regulations: The Federal rules restrict any use of the information to criminally investigate or prosecute any alcohol or drug abuse patient.[facility] HospitalIn the event this information is protected by the Federal Confidentiality of Alcohol and Drug Abuse Patient Records regulations: The Federal rules restrict any use of the information to criminally investigate or prosecute any alcohol or drug abuse patient.[facility] HospitalIn the event this information is protected by the Federal Confidentiality of Alcohol and Drug Abuse Patient Records regulations: The Federal rules restrict any use of the information to criminally investigate or prosecute any alcohol or drug abuse patient.[facility]In the event this information is protected by the Federal Confidentiality of Alcohol and Drug Abuse Patient Records regulations: The Federal rules restrict any use of the information to criminally investigate or prosecute any alcohol or drug abuse patient.[facility] HospitalIn the event this information is protected by the Federal Confidentiality of Alcohol and Drug Abuse Patient Records regulations: The Federal rules restrict any use of the information to criminally investigate or prosecute any alcohol or drug abuse patient.[facility] HospitalIn the event this information is protected by the Federal Confidentiality of Alcohol and Drug Abuse Patient Records regulations: The Federal rules restrict any use of the information to criminally investigate or prosecute any alcohol or drug abuse patient.[facility] HospitalIn the event this information is protected by the Federal Confidentiality of Alcohol and Drug Abuse Patient Records regulations: The Federal rules restrict any use of the information to criminally investigate or prosecute any alcohol or drug abuse patient.[facility]In the event this information is protected by the Federal Confidentiality of Alcohol and Drug Abuse Patient Records regulations: The Federal rules restrict any use of the information to criminally investigate or prosecute any alcohol or drug abuse patient.[facility] HospitalIn the event this information is protected by the Federal Confidentiality of Alcohol and Drug Abuse Patient Records regulations: The Federal rules restrict any use of the information to criminally investigate or prosecute any alcohol or drug abuse patient.[facility]In the event this information is protected by the Federal Confidentiality of Alcohol and Drug Abuse Patient Records regulations: The Federal rules restrict any use of the information to criminally investigate or prosecute any alcohol or drug abuse patient.[facility] HospitalIn the event this information is protected by the Federal Confidentiality of Alcohol and Drug Abuse Patient Records regulations: The Federal rules restrict any use of the information to criminally investigate or prosecute any alcohol or drug abuse patient.[facility]In the event this information is protected by the Federal Confidentiality of Alcohol and Drug Abuse Patient Records regulations: The Federal rules restrict any use of the information to criminally investigate or prosecute any alcohol or drug abuse patient.[facility]In the event this information is protected by the Federal Confidentiality of Alcohol and Drug Abuse Patient Records regulations: The Federal rules restrict any use of the information to criminally investigate or prosecute any alcohol or drug abuse patient.[facility]In the event this information is protected by the Federal Confidentiality of Alcohol and Drug Abuse Patient Records regulations: The Federal rules restrict any use of the information to criminally investigate or prosecute any alcohol or drug abuse patient.[facility]In the event this information is protected by the Federal Confidentiality of Alcohol and Drug Abuse Patient Records regulations: The Federal rules restrict any use of the information to criminally investigate or prosecute any alcohol or drug abuse patient.[facility]In the event this information is protected by the Federal Confidentiality of Alcohol and Drug Abuse Patient Records regulations: The Federal rules restrict any use of the information to criminally investigate or prosecute any alcohol or drug abuse patient.[facility]In the event this information is protected by the Federal Confidentiality of Alcohol and Drug Abuse Patient Records regulations: The Federal rules restrict any use of the information to criminally investigate or prosecute any alcohol or drug abuse patient.[facility]In the event this information is protected by the Federal Confidentiality of Alcohol and Drug Abuse Patient Records regulations: The Federal rules restrict any use of the information to criminally investigate or prosecute any alcohol or drug abuse patient.[facility]In the event this information is protected by the Federal Confidentiality of Alcohol and Drug Abuse Patient Records regulations: The Federal rules restrict any use of the information to criminally investigate or prosecute any alcohol or drug abuse patient.[facility]In the event this information is protected by the Federal Confidentiality of Alcohol and Drug Abuse Patient Records regulations: The Federal rules restrict any use of the information to criminally investigate or prosecute any alcohol or drug abuse patient.[facility]In the event this information is protected by the Federal Confidentiality of Alcohol and Drug Abuse Patient Records regulations: The Federal rules restrict any use of the information to criminally investigate or prosecute any alcohol or drug abuse patient.[facility]In the event this information is protected by the Federal Confidentiality of Alcohol and Drug Abuse Patient Records regulations: The Federal rules restrict any use of the information to criminally investigate or prosecute any alcohol or drug abuse patient.[facility]In the event this information is protected by the Federal Confidentiality of Alcohol and Drug Abuse Patient Records regulations: The Federal rules restrict any use of the information to criminally investigate or prosecute any alcohol or drug abuse patient.[facility]In the event this information is protected by the Federal Confidentiality of Alcohol and Drug Abuse Patient Records regulations: The Federal rules restrict any use of the information to criminally investigate or prosecute any alcohol or drug abuse patient.[facility]In the event this information is protected by the Federal Confidentiality of Alcohol and Drug Abuse Patient Records regulations: The Federal rules restrict any use of the information to criminally investigate or prosecute any alcohol or drug abuse patient.[facility]In the event this information is protected by the Federal Confidentiality of Alcohol and Drug Abuse Patient Records regulations: The Federal rules restrict any use of the information to criminally investigate or prosecute any alcohol or drug abuse patient.[facility]In the event this information is protected by the Federal Confidentiality of Alcohol and Drug Abuse Patient Records regulations: The Federal rules restrict any use of the information to criminally investigate or prosecute any alcohol or drug abuse patient.[facility]In the event this information is protected by the Federal Confidentiality of Alcohol and Drug Abuse Patient Records regulations: The Federal rules restrict any use of the information to criminally investigate or prosecute any alcohol or drug abuse patient.[facility]In the event this information is protected by the Federal Confidentiality of Alcohol and Drug Abuse Patient Records regulations: The Federal rules restrict any use of the information to criminally investigate or prosecute any alcohol or drug abuse patient.[facility]In the event this information is protected by the Federal Confidentiality of Alcohol and Drug Abuse Patient Records regulations: The Federal rules restrict any use of the information to criminally investigate or prosecute any alcohol or drug abuse patient.[facility] HospitalIn the event this information is protected by the Federal Confidentiality of Alcohol and Drug Abuse Patient Records regulations: The Federal rules restrict any use of the information to criminally investigate or prosecute any alcohol or drug abuse patient.[facility]In the event this information is protected by the Federal Confidentiality of Alcohol and Drug Abuse Patient Records regulations: The Federal rules restrict any use of the information to criminally investigate or prosecute any alcohol or drug abuse patient.[facility]In the event this information is protected by the Federal Confidentiality of Alcohol and Drug Abuse Patient Records regulations: The Federal rules restrict any use of the information to criminally investigate or prosecute any alcohol or drug abuse patient.[facility] HospitalIn the event this information is protected by the Federal Confidentiality of Alcohol and Drug Abuse Patient Records regulations: The Federal rules restrict any use of the information to criminally investigate or prosecute any alcohol or drug abuse patient.[facility] HospitalIn the event this information is protected by the Federal Confidentiality of Alcohol and Drug Abuse Patient Records regulations: The Federal rules restrict any use of the information to criminally investigate or prosecute any alcohol or drug abuse patient.[facility]In the event this information is protected by the Federal Confidentiality of Alcohol and Drug Abuse Patient Records regulations: The Federal rules restrict any use of the information to criminally investigate or prosecute any alcohol or drug abuse patient.[facility] HospitalIn the event this information is protected by the Federal Confidentiality of Alcohol and Drug Abuse Patient Records regulations: The Federal rules restrict any use of the information to criminally investigate or prosecute any alcohol or drug abuse patient.[facility] HospitalIn the event this information is protected by the Federal Confidentiality of Alcohol and Drug Abuse Patient Records regulations: The Federal rules restrict any use of the information to criminally investigate or prosecute any alcohol or drug abuse patient.[facility] HospitalIn the event this information is protected by the Federal Confidentiality of Alcohol and Drug Abuse Patient Records regulations: The Federal rules restrict any use of the information to criminally investigate or prosecute any alcohol or drug abuse patient.[facility] HospitalIn the event this information is protected by the Federal Confidentiality of Alcohol and Drug Abuse Patient Records regulations: The Federal rules restrict any use of the information to criminally investigate or prosecute any alcohol or drug abuse patient.[facility] HospitalIn the event this information is protected by the Federal Confidentiality of Alcohol and Drug Abuse Patient Records regulations: The Federal rules restrict any use of the information to criminally investigate or prosecute any alcohol or drug abuse patient.[facility] HospitalIn the event this information is protected by the Federal Confidentiality of Alcohol and Drug Abuse Patient Records regulations: The Federal rules restrict any use of the information to criminally investigate or prosecute any alcohol or drug abuse patient.[facility] HospitalIn the event this information is protected by the Federal Confidentiality of Alcohol and Drug Abuse Patient Records regulations: The Federal rules restrict any use of the information to criminally investigate or prosecute any alcohol or drug abuse patient.[facility] Reason for Visit (unrecogniz ed section and content) Reason Comments ED Follow-up Specialty Diagnoses / Procedures Referred By Contelizabeth t Referred To Contact [facility] [place] / PULMONARY MEDICINE Diagnoses Pneumonia Pneumonia, [facility] Follow up, discharged on 04/04 Procedures RI EST PULM GENERAL Jose Vail MD [address] [place] [address] [place] [address] Radha Ruano, TELEPHONE ANSWERING SERVICE OPERATOR.INTERNET MARKETING CONSULTANT [address] [place] [address] Referral ID Status Reason Start Date Expiration Date V isits Requested Visits Authorized [id number] Authorized 04/18/2023 02/18/2024 99 99 Reason Comments 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 Diagnoses / Procedures Referred By Contelizabeth t Referred To Contact Hematology / HEMATOLOGY/ONCOLOGY Diagnoses 8 week lab Procedures EST PATIENT Jose Vail MD [address] [place] [phone] Alexsander Ledezma MD [address] [place] [address] [place] [address] Referral ID Status Reason Start Date Expiration Date Visits Re quested Visits Authorized [id number] Closed 04/16/2023 02/18/2024 1 1 Reason Comments Lymphoma Reason Comments Established Patient Pembro and follow up Specialty Diagnoses / Procedures Referred By Contelizabeth t Referred To Contact Hematology/Oncology / HEMATOLOGY/ONCOLOGY Diagnoses OV ; TX after Procedures EST PATIENT GrahamSaLamin B [address] [place] [address] Sylvia Mancilla, TELEPHONE ANSWERING SERVICE OPERATOR.INTERNET MARKETING CONSULTANT [address] [place] [address] Referral ID Status Reason Start Date Expiration Date V isits Requested Visits Authorized [id number] Authorized 10/25/2021 01/22/2022 99 99 Reason Comments Chemotherapy Treatment keytruda Specialty Diagnoses / Procedures Referred By [facility] Referred To Contact 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) Procedures [place] [address] [place] [address] [facility] [place] [address] [place] [address] Referral ID Status Reason Start Date Expiration Date V isits Requested Visits Authorized [id number] Authorized 12/11/2019 04/24/2022 99 99 Reason Comments Refill Request Reason Comments Established Patient Pain Anxiety Reason Comments Chemotherapy Treatment Specialty Diagnoses / Procedures Referred By [facility] Referred To Contact 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) [place] [address] [place] [address] [facility] [place] [address] [place] [address] Referral ID Status Reason Start Date Expiration Date V isits Requested Visits Authorized [id number] Authorized 12/11/2019 03/10/2020 1 1 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 Reason Onset Date Comments Refill Request 05/17/2021 Reason Comments Care Coordination sinus symptoms Reason Onset Date Comments Refill Request 06/06/2021 Reason Onset Date Comments Refill Request 06/15/2021 Reason Onset Date Comments Refill Request 06/30/2021 Specialty Diagnoses / Procedures Referred By [facility] Referred To Contact 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) [place] [address] [place] [address] [facility] [place] [address] [place] [address] Reason Onset Date Comments Refill Request 2021 Reason Comments LESION, SKIN Reason Comments Care Coordination Pall med referral Reason Onset Date Comments Refill Request 08/14/2021 Reason Onset Date Comments Refill Request 08/30/2021 Reason Onset Date Comments Refill Request 09/02/2021 Reason Onset Date Comments Refill Request 09/03/2021 Reason Comments Derm Problem Hs lesions Reason Onset Date Comments Refill Request 09/11/2021 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 Comments 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 Follow Up Reason Onset Date Comments Refill Request 10/04/2021 Reason Onset Date Comments Refill Request 10/16/2021 Reason Comments Established Patient Pembro infusion Specialty Diagnoses / Procedures Referred By Contac t Referred To Contact Hematology/Oncology / HEMATOLOGY/ONCOLOGY Diagnoses OV ; [place] after Procedures EST PATIENT Quintin Stevensonbh B [address] [place] [address] Sylvia Mancilla, TELEPHONE ANSWERING SERVICE OPERATOR.INTERNET MARKETING CONSULTANT [address] [place] [address] Reason Comments Follow Up Pain Insomnia Reason Onset Date Comments Refill Request 10/31/2021 Reason Onset Date Comments Refill Request 11/07/2021 Reason Comments Orders Reason Comments Established Patient Specialty Diagnoses / Procedures Referred By Contac t Referred To Contact 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) Procedures [place] [address] [place] [address] Delfino [facility] [place] [address] [place] [address] Referral ID Status Reason Start Date Expiration Date V isits Requested Visits Authorized [id number] Pending Review 12/11/2019 04/24/2022 99 99 Reason Onset Date Comments Refill Request 12/04/2021 Reason Comments Acne Specialty Diagnoses / Procedures Referred By Contac t Referred To Contact Dermatology / DERMATOLOGY Diagnoses ACNE Procedures EST DPSI GENERAL Self Nova Leija, TELEPHONE ANSWERING SERVICE OPERATOR.INTERNET MARKETING CONSULTANT [address] [place] [address] Referral ID Status Reason Start Date Expiration Date V isits Requested Visits Authorized [id number] Closed Financial Clearance Required - OON Payor [...] after Procedures [place] [address] [place] [address] [place] [address] [place] [address] Referral ID Status Reason Start Date Expiration Date Visits Re quested Visits Authorized [id number] Closed 02/27/2022 03/30/2022 1 1 Reason Onset Date Comments Refill Request 03/15/2022 Reason Comments Cancer Reason Comments Patient Education Reason Comments Chemotherapy Treatment Keytruda Referral ID Status Reason Start Date Expiration Date V isits Requested Visits Authorized [id number] Authorized 12/11/2019 10/26/2022 99 99 Reason Onset [...] 40-54 MIN EST PATIENT Jose Vail MD [address] [facility] [place] [address] [place] [address] [place] [address] Referral ID Status Reason Start Date Expiration Date V isits Requested Visits Authorized [id number] Authorized 05/23/2022 05/24/2023 99 99 Reason Onset [...] 40-54 MIN EST PATIENT Jose Vail MD [address] [place] [address] [place] [address] [place] [address] Reason Comments Dyspnea On Exertion Simple chronic [...] RI EST PULM GENERAL Jose Vail MD [address] [facility] [place] [place] [address] Ella Pretty APRN.INTERNET MARKETING CONSULTANT [address] [place] [address] Referral ID Status Reason Start Date Expiration Date Visits Re quested Visits Authorized [id number] Closed 06/26/2022 06/27/2023 1 1 Reason Comments [...] EST PULM GENERAL Jose Vail MD [address] [place] [address] RocioDevan lopesa, TELEPHONE ANSWERING SERVICE OPERATOR.INTERNET MARKETING CONSULTANT [address] [place] [address] Referral ID Status Reason Start Date Expiration Date V isits Requested Visits Authorized [id number] Authorized 05/22/2022 05/23/2023 99 99 Specialty Diagnoses / Procedures Referred By Contac t Referred To Contact CT IMAGING Diagnoses Acute cough Procedures CT CHEST WO IVCON DIAGNOSTIC COMPUTED TOMOGRAPHY THORAX W/[place] [address] [place] [id number] Imaging Referral ID Status Reason Start Date Expiration Date V isits Requested Visits Authorized [id number] Closed Auto-Generate d Referral 05/22/2022 06/21/2023 1 [...] tion Specialty Diagnoses / Procedures Referred By Contelizabeth t Referred To Contact Hematology / HEMATOLOGY/ONCOLOGY Diagnoses Ref by Dr Cyn Ramires due to pt wanting closer to home DX: Hodgkins lymphomaPT REQ BRM Procedures OFFICE/OUTPATIENT NEW HIGH MDM 60-74 MINUTES NEW PATIENT MED ONC Jose Vali MD [address] [place] [address] [place] [address] Alexsander Ledezma MD [address] [place] [address] [place] [address] Referral ID Status Reason Start Date Expiration Date Visits Re quested Visits Authorized [id number] Closed 12/26/2022 12/27/2023 1 1 Reason Comments Results Reason Onset Date Comments Refill Request 01/06/2023 Reason Comments Spirometry Specialty Diagnoses / Procedures Referred By Contac t Referred To Contact [facility] Diagnoses Chronic cough Procedures LUNG DIFFUSION CAPACITY (DLCO) DIFFUSING CAPACITY Ella Pretty, TELEPHONE ANSWERING SERVICE OPERATOR.INTERNET MARKETING CONSULTANT [address] [facility] [address] [facility] [address] [place] [address] Referral ID Status Reason Start Date Expiration Date V isits Requested Visits Authorized [id number] Closed Auto-Generate d Referral 01/08/2023 02/17/2023 1 1 Specialty Diagnoses / Procedures Referred By Contac t Referred To Contact [facility] Diagnoses Bronchitis Procedures NITRIC OXIDE, EXHALED NITRIC OXIDE GAS DETERMINATION Ella Pretty, TELEPHONE ANSWERING SERVICE OPERATOR.INTERNET MARKETING CONSULTANT [address] [facility] [address] [facility] [address] [place] [address] Referral ID Status Reason Start Date Expiration Date V isits Requested Visits Authorized [id number] Closed Auto-Generate d Referral 01/08/2023 02/17/2023 1 [...] 10 MIN RI EST PULM GENERAL Ella Pretty, TELEPHONE ANSWERING SERVICE OPERATOR.INTERNET MARKETING CONSULTANT [address] [place] [address] Kylie Nunes TELEPHONE ANSWERING SERVICE OPERATOR.INTERNET MARKETING CONSULTANT [address] [place] [address] Referral ID Status Reason Start Date Expiration Date Visits Re quested Visits Authorized [id number] Closed 03/12/2023 02/18/2024 1 1 Specialty Diagnoses / Procedures Referred By Contac t Referred To Contact [facility] Diagnoses Bronchitis, not specified as acute or chronic Procedures SPIROMETRY - BASELINE AND POST DILATOR BRNCDILAT RSPSE SPMTRY PRE&POST-BRNCDILAT ADMN Ella Pretty, TELEPHONE ANSWERING SERVICE OPERATOR.INTERNET MARKETING CONSULTANT [address] [place] [address] [facility] [place] [address] [place] [address] Referral ID Status Reason Start Date Expiration Date V isits Requested Visits Authorized [id number] Closed Auto-Generate d Referral 02/14/2023 03/15/2024 1 1 Reason Comments Med Change Request Reason Comments Lab Orders Reason Onset Date Comments Refill Request 04/08/2023 Reason Comments Lymphoma Follow up Reason Comments Hospital F/U Specialty Diagnoses / Procedures Referred By Contac t Referred To Contact [facility] [place] / PULMONARY MEDICINE Diagnoses Pneumonia Pneumonia, [facility] Follow up, discharged on 04/04 Procedures RI [facility] PULJose Garsia [facility] [address] [facility] [address] Radha Ruano, TELEPHONE ANSWERING SERVICE OPERATOR.INTERNET MARKETING CONSULTANT [address] [place] [address] Reason Onset Date Comments Refill Request 05/12/2023 Reason Comments Throat Problem Specialty Diagnoses / Procedures Referred By Contac t Referred To Contact Ent - Otolaryngology Diagnoses Dysphagia, unspecified type Hoarseness Procedures CONSULT TO ENT OFFICE/OUTPATIENT [facility] 60 MINUTES Kylie Nunes, TELEPHONE ANSWERING SERVICE OPERATOR.INTERNET MARKETING CONSULTANT [address] [facility] [place] [address] Referral ID Status Reason Start Date Expiration Date V isits Requested Visits Authorized [id number] Closed PCP Requested Referral 03/28/2023 03/27/2024 1 1 Reason Comments Med Change Request Reason Comments Radiology XR Reason Comments Wheezing Short of breath, Sat. Reason Onset Date Comments Refill Request 06/09/2023 Reason Comments Restrictive lung disease Reason Comments Medication Authorization Reason Comments follow up Specialty Diagnoses / Procedures Referred By Contac t Referred To Contact Pulmonary and Critical Care Medicine / PULMONARY MEDICINE Diagnoses Follow-up exam ok per Dr. Carver Ms. Potts also needs to be added onto Dr. Carver's schedule at [facility] on Saturday06/28/23 at 11 am (it is a hospital day for her but adding her on per Dr. Carver). Dr. Carver would also like her put on the cancellation list for a sooner appt. Procedures OFFICE/OUTPATIENT ESTABLISHED SF MDM 10 MIN OFFICE/OUTPATIENT ESTABLISHED LOW MDM 20 MIN OFFICE/OUTPATIENT ESTABLISHED MOD MDM 30 MIN OFFICE/OUTPATIENT ESTABLISHED HIGH MDM 40 MIN RI EST PUL GENERAL Jose Vail MD [address] [facility] [address] [place] [address] [place] [address] Referral ID Status Reason Start Date Expiration Date V isits Requested Visits Authorized [id number] Authorized 06/14/2023 02/18/2024 99 9 Reason Comments Speech Instrumental Swallow Eval Speech Discharge Specialty Diagnoses / Procedures Referred By Contac t Referred To Contact XR IMAGING Diagnoses Dysphagia, unspecified type Procedures XR MODIFIED BARIUM SWALLOW W SPEECH THERAPY RADIOLOGIC EXAM SWALLOW FUNCTION CONTRAST STUDY Loy Merino PA-C [address] [place] [id number] [place] [address] Referral ID Status Reason Start Date Expiration Date V isits Requested Visits Authorized [id number] Closed Auto-Generate d Referral 05/22/2023 06/20/2024 1 1 Reason Comments Radio GI Main HB6 Specialty Diagnoses / Procedures Referred By Contac t Referred To Contact XR IMAGING Diagnoses Dysphagia, unspecified type Gastroesophageal reflux disease, unspecified whether esophagitis present Procedures XR ESOPHAGRAM RADIOLOGIC EXAM ESOPHAGUS SINGLE CONTRAST STUDY Loy Merino PA-C [address] [place] [address] [place] [address] Referral ID Status Reason Start Date Expiration Date V isits Requested Visits Authorized [id number] Closed Auto-Generate d Referral 05/22/2023 06/20/2024 1 1 Reason Onset Date Comments Refill Request 08/05/2023 Reason Onset Date Comments Refill Request 08/13/2023 Reason Onset Date Comments Refill Request 08/22/2023 Reason Comments Pain Specialty Diagnoses / Procedures Referred By Contact Referred To Contact Orthopedics / ORTHOPAEDIC SURGERY Diagnoses Right wrist pain right wrist pain Procedures OFFICE/OUTPATIENT NEW SF MDM 15 MINUTES OFFICE/OUTPATIENT NEW LOW MDM 30 MINUTES OFFICE/OUTPATIENT NEW MODERATE MDM 45 MINUTES OFFICE/OUTPATIENT NEW HIGH MDM 60 MINUTES JARAD [facility] Sherly Bruner PA-C [facility] [address] [place] [address] Sherly Bruner PA-C [address] [place] [address] Referral ID Status Reason Start Date Expiration Date Visits Re quested Visits Authorized [id number] Closed 07/31/2023 02/18/2024 1 1 Reason Comments Follow Up Specialty Diagnoses / Procedures Referred By Contact Referred To Contact Ent - Otolaryngology / ENT-OTOLARYNGOLOGY Diagnoses Return for Follow up after MBS, XR esophagram; sooner if clinically indicated.. Procedures EST HNI PATIENT Loy Merino PA-C [address] [place] [address] Loy Merino PA-C [address] [place] [address] Referral ID Status Reason Start Date Expiration Date Visits Re quested Visits Authorized [id number] Closed 07/17/2023 02/18/2024 1 1 Reason Onset Date Comments Refill Request 09/30/2023 Reason Comments New Patient Evaluation PsA Specialty Diagnoses / Procedures Referred By Contelizabeth t Referred To Contact Rheumatology Diagnoses Psoriatic arthritis (HCC) Procedures CONSULT TO RHEUM/IMMUN DISEASE OFFICE/OUTPATIENT NEW HIGH MDM 60-74 MINUTES Juan Francisco Hutchinson, TELEPHONE ANSWERING SERVICE OPERATOR.INTERNET MARKETING CONSULTANT [address] [place] [address] Or Main [address] [facility] [address] [place] [address] Referral ID Status Reason Start Date Expiration Date Visits Requested Visits Authorized [id number] Authorized PCP Requested Referral 06/19/2023 02/18/2024 99 99 Specialty Diagnoses / Procedures Referred By Contac t Referred To Contact [facility] Diagnoses Pulmonary hypertension (HCC) Procedures OXIMETRY WITH AMBULATION NONINVASIVE EAR/PULSE OXIMETRY MULTIPLE DETER Radha Ruano, LORY.INTERNET MARKETING CONSULTANT [address] [place] [address] [facility] [place] [address] [place] [address] Referral ID Status Reason Start Date Expiration Date V isits Requested Visits Authorized [id number] Closed Auto-Generate d Referral 08/06/2023 09/04/2024 1 1 Reason Comments Follow Up Care Teams (unrecognized sec tion and content) 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 Specialty Start Date End Date Jose Vail MD PCP - General Internal Medicine 05/07/16 Cyn Ramires MD [id number] [place] [address] Consulting Hematology/Oncology 01/28/12 Marilyn [place], [place] [address] [place] [address] Specialty Senior Technical Architect Hematology/Oncology 11/09/19 [place] [address] [place] [address] Hematology/Oncology 03/30/21 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 Specialty Start Date End Date Jose Vail MD PCP - General Internal Medicine 05/07/16 [place] [address] [place] [address] Consulting Hematology/Oncology 01/28/12 [place] [address] [place] [address] Specialty Senior Technical Architect Hematology/Oncology 11/09/19 [place] [address] [place] [address] Hematology/Oncology 03/30/21 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 Specialty Start Date End Date Jose Vail MD PCP - General Internal Medicine 05/07/16 [place] [address] [place] [address] Consulting Hematology/Oncology 01/28/12 Marilyn Hughes, RN [address] [place] [address] Specialty Senior Technical Architect Hematology/Oncology 11/09/19 Cyn Ramires MD [id number] [place] [address] Hematology/Oncology 03/30/21 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 Specialty Start Date End Date Jose Vail MD PCP - General Internal Medicine 05/07/16 [place] [address] [place] [address] Consulting Hematology/Oncology 01/28/12 Marilyn Hughes, MAE [address] [place] [address] Specialty Senior Technical Architect Hematology/Oncology 11/09/19 [place] [address] [place] [address] Hematology/Oncology 03/30/21 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 Specialty Start Date End Date Jose Vail MD PCP - General Internal Medicine 05/07/16 [place] [address] [place] [address] Consulting Hematology/Oncology 01/28/12 Marilyn Hughes RN [address] [place] [address] Specialty Senior Technical Architect Hematology/Oncology 11/09/19 Cyn Ramires MD [id number] [place] [address] Hematology/Oncology 03/30/21 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 Specialty Start Date End Date Jose Vail MD PCP - General Internal Medicine 05/07/16 Cyn Ramires MD [id number] [place] [address] Consulting Hematology/Oncology 01/28/12 Marilyn Hughes RN [address] [place] [address] Specialty Senior Technical Architect Hematology/Oncology 11/09/19 Cyn Ramires MD [address] [place] [address] Hematology/Oncology 03/30/21 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 Specialty Start Date End Date Jose Vail MD PCP - General Internal Medicine 05/07/16 Cyn Ramires MD [id number] [place] [address] Consulting Hematology/Oncology 01/28/12 Marilyn Hughes RN [address] [place] [address] Specialty Senior Technical Architect Hematology/Oncology 11/09/19 Cyn Ramires MD [id number] [place] [address] Hematology/Oncology 03/30/21 Kristina Pete, RN Specialty Senior Technical Architect HOSPICE & PALLIATIVE MEDICINE 05/22/21 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 Specialty Start Date End Date Jose Vail MD PCP - General Internal Medicine 05/07/16 [place] [address] [place] [address] Consulting Hematology/Oncology 01/28/12 Marilyn Hughes, RN [address] [place] [address] Specialty Senior Technical Architect Hematology/Oncology 11/09/19 [place] [address] [place] [address] Hematology/Oncology 03/30/21 Kristina Pete, RN Specialty Senior Technical Architect HOSPICE & PALLIATIVE MEDICINE 05/22/21 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 Specialty Start Date End Date Jose Vail MD PCP - General Internal Medicine 05/07/16 [place] [address] [place] [address] Consulting Hematology/Oncology 01/28/12 [place] [address] [place] [address] Specialty Senior Technical Architect Hematology/Oncology 11/09/19 [place] [address] [place] [address] Hematology/Oncology 03/30/21 Kristina Pete, RN Specialty Senior Technical Architect HOSPICE & PALLIATIVE MEDICINE 05/22/21 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 Specialty Start Date End Date Jose Vail MD PCP - General Internal Medicine 05/07/16 [place] [address] [place] [address] Consulting Hematology/Oncology 01/28/12 Marilyn Hughes, RN [id number] [place] [address] Specialty Senior Technical Architect Hematology/Oncology 11/09/19 [place] [address] [place] [address] Hematology/Oncology 03/30/21 Kristina Pete, RN Specialty Senior Technical Architect HOSPICE & PALLIATIVE MEDICINE 05/22/21 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 Specialty Start Date End Date Jose Vail MD PCP - General Internal Medicine 05/07/16 [place] [address] [place] [address] Consulting Hematology/Oncology 01/28/12 [place] [address] [place] [address] Specialty Senior Technical Architect Hematology/Oncology 11/09/19 [place] [address] [place] [address] Hematology/Oncology 03/30/21 Kristina Pete, MAE Specialty Senior Technical Architect HOSPICE & PALLIATIVE MEDICINE 05/22/21 Juan Francisco uHtchinson, TELEPHONE ANSWERING SERVICE OPERATOR.[facility] [address] [place] [address] Palliative Medicine Provider HOSPICE & PALLIATIVE MEDICINE 06/28/21 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 Specialty Start Date End Date Jose Vail MD PCP - General Internal Medicine 05/07/16 [place] [address] [place] [address] Consulting Hematology/Oncology 01/28/12 Marilyn Hughes RN [id number] [place] [address] Specialty Senior Technical Architect Hematology/Oncology 11/09/19 [place] [address] [place] [address] Hematology/Oncology 03/30/21 Kristina Pete, MAE Specialty Senior Technical Architect HOSPICE & PALLIATIVE MEDICINE 05/22/21 Juan Francisco Hutchinson, TELEPHONE ANSWERING SERVICE OPERATOR.INTERNET MARKETING CONSULTANT [address] [place] [address] Palliative Medicine Provider HOSPICE & PALLIATIVE MEDICINE 06/28/21 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 Specialty Start Date End Date Jose Vail MD PCP - General Internal Medicine 05/07/16 [place] [address] [place] [address] Consulting Hematology/Oncology 01/28/12 Marilyn Hughes RN [id number] [place] [address] Specialty Senior Technical Architect Hematology/Oncology 11/09/19 [place] [address] [place] [address] Hematology/Oncology 03/30/21 Kristina Pete, MAE Specialty Senior Technical Architect HOSPICE & PALLIATIVE MEDICINE 05/22/21 Juan Francisco Hutchinson, TELEPHONE ANSWERING SERVICE OPERATOR.INTERNET MARKETING CONSULTANT [address] [facility] [place] [address] Palliative Medicine Provider HOSPICE & PALLIATIVE MEDICINE 06/28/21 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 Specialty Start Date End Date Jose Vail MD PCP - General Internal Medicine 05/07/16 [place] [address] [place] [address] Consulting Hematology/Oncology 01/28/12 [place] [address] [place] [address] Specialty Senior Technical Architect Hematology/Oncology 11/09/19 [place] [address] [place] [address] Hematology/Oncology 03/30/21 Kristina Pete, MAE Specialty Senior Technical Architect HOSPICE & PALLIATIVE MEDICINE 05/22/21 Juan Francisco Hutchinson, TELEPHONE ANSWERING SERVICE OPERATOR.INTERNET MARKETING CONSULTANT [address] [place] [address] Palliative Medicine Provider HOSPICE & PALLIATIVE MEDICINE 06/28/21 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 Specialty Start Date End Date Jose Vail MD PCP - General Internal Medicine 05/07/16 [place] [address] [place] [address] Consulting Hematology/Oncology 01/28/12 [place] MAE [address] [place] [address] Specialty Senior Technical Architect Hematology/Oncology 11/09/19 [place] [address] [place] [address] Hematology/Oncology 03/30/21 Kristina Pete, RN Specialty Senior Technical Architect HOSPICE & PALLIATIVE MEDICINE 05/22/21 Juan Francisco Hutchinson, TELEPHONE ANSWERING SERVICE OPERATOR.INTERNET MARKETING CONSULTANT [address] [place] [address] Palliative Medicine Provider HOSPICE & PALLIATIVE MEDICINE 06/28/21 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 Specialty Start Date End Date Jose Vail MD PCP - General Internal Medicine 05/07/16 Cyn Ramires MD [id number] [place] [address] Consulting Hematology/Oncology 01/28/12 Marilyn Hughes, RN [id number] [place] [address] Specialty Senior Technical Architect Hematology/Oncology 11/09/19 Cyn Ramires MD [id number] [place] [address] Hematology/Oncology 03/30/21 Kristina Pete, MAE Specialty Senior Technical Architect HOSPICE & PALLIATIVE MEDICINE 05/22/21 Juan Francisco Hutchinson, TELEPHONE ANSWERING SERVICE OPERATOR.INTERNET MARKETING CONSULTANT [address] [place] [address] Palliative Medicine Provider HOSPICE & PALLIATIVE MEDICINE 06/28/21 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 Specialty Start Date End Date Jose Vail MD PCP - General Internal Medicine 05/07/16 [place] [address] [place] [address] Consulting Hematology/Oncology 01/28/12 Marilyn Hughes, RN [phone] [place] [address] Specialty Senior Technical Architect Hematology/Oncology 11/09/19 Cyn Ramires MD [id number] [place] [address] Hematology/Oncology 03/30/21 Kristina Pete, RN Specialty Senior Technical Architect HOSPICE & PALLIATIVE MEDICINE 05/22/21 Juan Francisco Hutchinson, TELEPHONE ANSWERING SERVICE OPERATOR.INTERNET MARKETING CONSULTANT [address] [place] [address] Palliative Medicine Provider HOSPICE & PALLIATIVE MEDICINE 06/28/21 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 Specialty Start Date End Date Jose Vail MD PCP - General Internal Medicine 05/07/16 [place] [address] [place] [address] Consulting Hematology/Oncology 01/28/12 [place] MAE [address] [place] [address] Specialty Senior Technical Architect Hematology/Oncology 11/09/19 [place] [address] [place] [address] Hematology/Oncology 03/30/21 Kristina Pete, MAE Specialty Senior Technical Architect HOSPICE & PALLIATIVE MEDICINE 05/22/21 Juan Francisco Hutchinson, TELEPHONE ANSWERING SERVICE OPERATOR.INTERNET MARKETING CONSULTANT [address] [place] [address] Palliative Medicine Provider HOSPICE & PALLIATIVE MEDICINE 06/28/21 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 Specialty Start Date End Date Jose Vail MD PCP - General Internal Medicine 05/07/16 [place] [address] [place] [address] Consulting Hematology/Oncology 01/28/12 [place]E [address] [place] [address] Specialty Senior Technical Architect Hematology/Oncology 11/09/19 [place] [address] [place] [address] Hematology/Oncology 03/30/21 Kristina Pete, RN Specialty Senior Technical Architect HOSPICE & PALLIATIVE MEDICINE 05/22/21 Juan Francisco Hutchinson, TELEPHONE ANSWERING SERVICE OPERATOR.INTERNET MARKETING CONSULTANT [address] [place] [address] Palliative Medicine Provider HOSPICE & PALLIATIVE MEDICINE 06/28/21 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 Specialty Start Date End Date Jose Vail MD PCP - General Internal Medicine 05/07/16 [place] [address] [place] [address] Consulting Hematology/Oncology 01/28/12 [place]E [address] [place] [address] Specialty Senior Technical Architect Hematology/Oncology 11/09/19 [place] [address] [place] [address] Hematology/Oncology 03/30/21 Kristina Pete, RN Specialty Senior Technical Architect HOSPICE & PALLIATIVE MEDICINE 05/22/21 Juan Francisco Hutchinson, TELEPHONE ANSWERING SERVICE OPERATOR.INTERNET MARKETING CONSULTANT [address] [place] [address] Palliative Medicine Provider HOSPICE & PALLIATIVE MEDICINE 06/28/21 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 Specialty Start Date End Date Jose Vail MD PCP - General Internal Medicine 05/07/16 [place] [address] [place] [address] Consulting Hematology/Oncology 01/28/12 [place] [address] [place] [address] Specialty Senior Technical Architect Hematology/Oncology 11/09/19 [place] [address] [place] [address] Hematology/Oncology 03/30/21 Kristina Pete, RN Specialty Senior Technical Architect HOSPICE & PALLIATIVE MEDICINE 05/22/21 Juan Francisco Hutchinson, TELEPHONE ANSWERING SERVICE OPERATOR.INTERNET MARKETING CONSULTANT [address] [place] [address] Palliative Medicine Provider HOSPICE & PALLIATIVE MEDICINE 06/28/21 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 Specialty Start Date End Date Jose Vail MD PCP - General Internal Medicine 05/07/16 [place] [address] [place] [address] Consulting Hematology/Oncology 01/28/12 [place] [address] [place] [address] Specialty Senior Technical Architect Hematology/Oncology 11/09/19 [place] [address] [place] [address] Hematology/Oncology 03/30/21 Kristina Pete, RN Specialty Senior Technical Architect HOSPICE & PALLIATIVE MEDICINE 05/22/21 Juan Francisco Hutchinson, TELEPHONE ANSWERING SERVICE OPERATOR.INTERNET MARKETING CONSULTANT [address] [place] [address] Palliative Medicine Provider HOSPICE & PALLIATIVE MEDICINE 06/28/21 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 Specialty Start Date End Date Jose Vail MD PCP - General Internal Medicine 05/07/16 [place] [address] [place] [address] Consulting Hematology/Oncology 01/28/12 [place] [address] [place] [address] Specialty Senior Technical Architect Hematology/Oncology 11/09/19 [place] [address] [place] [address] Hematology/Oncology 03/30/21 Kristina Pete, MAE Specialty Senior Technical Architect HOSPICE & PALLIATIVE MEDICINE 05/22/21 Juan Francisco Hutchnison, TELEPHONE ANSWERING SERVICE OPERATOR.INTERNET MARKETING CONSULTANT [address] [place] [address] Palliative Medicine Provider HOSPICE & PALLIATIVE MEDICINE 06/28/21 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 Specialty Start Date End Date Jose Vail MD PCP - General Internal Medicine 05/07/16 [place] [address] [place] [address] Consulting Hematology/Oncology 01/28/12 Marilyn Hughes RN [phone] [place] [address] Specialty Senior Technical Architect Hematology/Oncology 11/09/19 [place] [address] [place] [address] Hematology/Oncology 03/30/21 Kristina Pete, MAE Specialty Senior Technical Architect HOSPICE & PALLIATIVE MEDICINE 05/22/21 Juan Francisco Hutchinson, TELEPHONE ANSWERING SERVICE OPERATOR.INTERNET MARKETING CONSULTANT [address] [place] [address] Palliative Medicine Provider HOSPICE & PALLIATIVE MEDICINE 06/28/21 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 Specialty Start Date End Date Jose Vail MD PCP - General Internal Medicine 05/07/16 [place] [address] [place] [address] Consulting Hematology/Oncology 01/28/12 Marilyn Hughes, MAE [address] [place] [address] Specialty Senior Technical Architect Hematology/Oncology 11/09/19 [place] [address] [place] [address] Hematology/Oncology 03/30/21 Kristina Pete RN Specialty Senior Technical Architect HOSPICE & PALLIATIVE MEDICINE 05/22/21 Juan Francisco Hutchinson, TELEPHONE ANSWERING SERVICE OPERATOR.INTERNET MARKETING CONSULTANT [address] [place] [address] Palliative Medicine Provider HOSPICE & PALLIATIVE MEDICINE 06/28/21 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 Specialty Start Date End Date Jose Vail MD PCP - General Internal Medicine 05/07/16 [place] [address] [place] [address] Consulting Hematology/Oncology 01/28/12 [place]E [address] [place] [address] Specialty Senior Technical Architect Hematology/Oncology 11/09/19 [place] [address] [place] [address] Hematology/Oncology 03/30/21 Kristina Pete, MAE Specialty Senior Technical Architect HOSPICE & PALLIATIVE MEDICINE 05/22/21 Juan Francisco Hutchinson, TELEPHONE ANSWERING SERVICE OPERATOR.INTERNET MARKETING CONSULTANT [address] [place] [address] Palliative Medicine Provider HOSPICE & PALLIATIVE MEDICINE 06/28/21 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 Specialty Start Date End Date Jose Vail MD PCP - General Internal Medicine 05/07/16 Cyn Ramires MD [id number] [place] [address] Consulting Hematology/Oncology 01/28/12 Marilyn Hughes, RN [phone] [place] [address] Specialty Senior Technical Architect Hematology/Oncology 11/09/19 Cyn Ramires MD [id number] [place] [address] Hematology/Oncology 03/30/21 Kristina Pete, MAE Specialty Senior Technical Architect HOSPICE & PALLIATIVE MEDICINE 05/22/21 Juan Francisco Hutchinson, TELEPHONE ANSWERING SERVICE OPERATOR.INTERNET MARKETING CONSULTANT [address] [place] [address] Palliative Medicine Provider HOSPICE & PALLIATIVE MEDICINE 06/28/21 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 Specialty Start Date End Date Jose Vail MD PCP - General Internal Medicine 05/07/16 [place] [address] [place] [address] Consulting Hematology/Oncology 01/28/12 Marilyn Hughes, MAE [address] [place] [address] Specialty Senior Technical Architect Hematology/Oncology 11/09/19 [place] [address] [place] [address] Hematology/Oncology 03/30/21 Kristina Pete, RN Specialty Senior Technical Architect HOSPICE & PALLIATIVE MEDICINE 05/22/21 Juan Francisco Hutchinson, TELEPHONE ANSWERING SERVICE OPERATOR.INTERNET MARKETING CONSULTANT [address] [place] [address] Palliative Medicine Provider HOSPICE & PALLIATIVE MEDICINE 06/28/21 Kylie Mosher, RN Specialty Senior Technical Architect HOSPICE & PALLIATIVE MEDICINE 09/27/21 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 Specialty Start Date End Date Jose Vail MD PCP - General Internal Medicine 05/07/16 [place] [address] [place] [address] Consulting Hematology/Oncology 01/28/12 [place] [address] [place] [address] Specialty Senior Technical Architect Hematology/Oncology 11/09/19 [place] [address] [place] [address] Hematology/Oncology 03/30/21 Kristina Pete, RN Specialty Senior Technical Architect HOSPICE & PALLIATIVE MEDICINE 05/22/21 Juan Francisco Hutchinson, TELEPHONE ANSWERING SERVICE OPERATOR.INTERNET MARKETING CONSULTANT [address] [place] [address] Palliative Medicine Provider HOSPICE & PALLIATIVE MEDICINE 06/28/21 Kylie Mosher, RN Specialty Senior Technical Architect HOSPICE & PALLIATIVE MEDICINE 09/27/21 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 Specialty Start Date End Date Jose Vail MD PCP - General Internal Medicine 05/07/16 [place] [address] [place] [address] Consulting Hematology/Oncology 01/28/12 [place]E [address] [place] [address] Specialty Senior Technical Architect Hematology/Oncology 11/09/19 [place] [address] [place] [address] Hematology/Oncology 03/30/21 Kristina Pete, MAE Specialty Senior Technical Architect HOSPICE & PALLIATIVE MEDICINE 05/22/21 Juan Francisco Hutchinson, TELEPHONE ANSWERING SERVICE OPERATOR.INTERNET MARKETING CONSULTANT [address] [place] [address] Palliative Medicine Provider HOSPICE & PALLIATIVE MEDICINE 06/28/21 Kylie Mosher RN Specialty Senior Technical Architect HOSPICE & PALLIATIVE MEDICINE 09/27/21 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 Specialty Start Date End Date Jose Vail MD PCP - General Internal Medicine 05/07/16 [place] [address] [place] [address] Consulting Hematology/Oncology 01/28/12 [place] [address] [place] [address] Specialty Senior Technical Architect Hematology/Oncology 11/09/19 [place] [address] [place] [address] Hematology/Oncology 03/30/21 Kristina Pete, MAE Specialty Senior Technical Architect HOSPICE & PALLIATIVE MEDICINE 05/22/21 Juan Francisco Hutchinson, TELEPHONE ANSWERING SERVICE OPERATOR.INTERNET MARKETING CONSULTANT [address] [place] [address] Palliative Medicine Provider HOSPICE & PALLIATIVE MEDICINE 06/28/21 Kylie Mosher RN Specialty Senior Technical Architect HOSPICE & PALLIATIVE MEDICINE 09/27/21 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 Specialty Start Date End Date Jose Vail MD PCP - General Internal Medicine 05/07/16 [place] [address] [place] [address] Consulting Hematology/Oncology 01/28/12 Marilyn Hughes, RN [id number] [place] [address] Specialty Senior Technical Architect Hematology/Oncology 11/09/19 [place] [address] [place] [address] Hematology/Oncology 03/30/21 Kristina Pete, RN Specialty Senior Technical Architect HOSPICE & PALLIATIVE MEDICINE 05/22/21 Juan Francisco Hutchinson, TELEPHONE ANSWERING SERVICE OPERATOR.INTERNET MARKETING CONSULTANT [address] [place] [address] Palliative Medicine Provider HOSPICE & PALLIATIVE MEDICINE 06/28/21 Kylie Mosher, RN Specialty Senior Technical Architect HOSPICE & PALLIATIVE MEDICINE 09/27/21 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 Specialty Start Date End Date Jose Vail MD PCP - General Internal Medicine 05/07/16 [place] [address] Consulting Hematology/Oncology 01/28/12 Marilyn Hughes, MAE [address] [place] [address] Specialty Senior Technical Architect Hematology/Oncology 11/09/19 [place] [address] [place] [address] Hematology/Oncology 03/30/21 Kristina Pete, RN Specialty Senior Technical Architect HOSPICE & PALLIATIVE MEDICINE 05/22/21 Juan Francisco Hutchinson, TELEPHONE ANSWERING SERVICE OPERATOR.INTERNET MARKETING CONSULTANT [address] [place] [address] Palliative Medicine Provider HOSPICE & PALLIATIVE MEDICINE 06/28/21 Kylie Mosher, RN Specialty Senior Technical Architect HOSPICE & PALLIATIVE MEDICINE 09/27/21 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 Specialty Start Date End Date Jose Vail MD PCP - General Internal Medicine 05/07/16 [place] [address] [place] [address] Consulting Hematology/Oncology 01/28/12 [place] [address] [place] [address] Specialty Senior Technical Architect Hematology/Oncology 11/09/19 [place] [address] [place] [address] Hematology/Oncology 03/30/21 Kristina Pete, MAE Specialty Senior Technical Architect HOSPICE & PALLIATIVE MEDICINE 05/22/21 Juan Francisco Hutchinson, TELEPHONE ANSWERING SERVICE OPERATOR.INTERNET MARKETING CONSULTANT [address] [place] [address] Palliative Medicine Provider HOSPICE & PALLIATIVE MEDICINE 06/28/21 Kylie Mosher, RN Specialty Senior Technical Architect HOSPICE & PALLIATIVE MEDICINE 09/27/21 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 Specialty Start Date End Date Jose Vail MD PCP - General Internal Medicine 05/07/16 [place] [address] [place] [address] Consulting Hematology/Oncology 01/28/12 Marilyn Hughes, MAE [address] [place] [address] Specialty Senior Technical Architect Hematology/Oncology 11/09/19 [place] [address] [place] [address] Hematology/Oncology 03/30/21 Kristina Pete, RN Specialty Senior Technical Architect HOSPICE & PALLIATIVE MEDICINE 05/22/21 Juan Francisco Hutchinson, TELEPHONE ANSWERING SERVICE OPERATOR.INTERNET MARKETING CONSULTANT [address] [place] [address] Palliative Medicine Provider HOSPICE & PALLIATIVE MEDICINE 06/28/21 Kylie Mosher, RN Specialty Senior Technical Architect HOSPICE & PALLIATIVE MEDICINE 09/27/21 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 Specialty Start Date End Date Jose Vail MD PCP - General Internal Medicine 05/07/16 [place] [address] [place] [address] Consulting Hematology/Oncology 01/28/12 Mar[place], MAE [address] [place] [address] Specialty Senior Technical Architect Hematology/Oncology 11/09/19 [place] [address] [place] [address] Hematology/Oncology 03/30/21 Kristina Pete, RN Specialty Senior Technical Architect HOSPICE & PALLIATIVE MEDICINE 05/22/21 Juan Francisco Hutchinson, TELEPHONE ANSWERING SERVICE OPERATOR.INTERNET MARKETING CONSULTANT [address] [place] [address] Palliative Medicine Provider HOSPICE & PALLIATIVE MEDICINE 06/28/21 Kylie Mosher, RN Specialty Senior Technical Architect HOSPICE & PALLIATIVE MEDICINE 09/27/21 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 Specialty Start Date End Date Jose Vail MD PCP - General Internal Medicine 05/07/16 [place] [address] [place] [address] Consulting Hematology/Oncology 01/28/12 Marilyn Hughes, MAE [address] [place] [address] Specialty Senior Technical Architect Hematology/Oncology 11/09/19 [place] [address] [place] [address] Hematology/Oncology 03/30/21 Kristina Pete, RN Specialty Senior Technical Architect HOSPICE & PALLIATIVE MEDICINE 05/22/21 Juan Francisco Hutchinson, TELEPHONE ANSWERING SERVICE OPERATOR.INTERNET MARKETING CONSULTANT [address] [place] [address] Palliative Medicine Provider HOSPICE & PALLIATIVE MEDICINE 06/28/21 Kylie Mosher RN Specialty Senior Technical Architect HOSPICE & PALLIATIVE MEDICINE 09/27/21 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 Specialty Start Date End Date Jose Vail MD PCP - General Internal Medicine 05/07/16 [place] [address] [place] [address] Consulting Hematology/Oncology 01/28/12 [place] [address] [place] [address] Specialty Senior Technical Architect Hematology/Oncology 11/09/19 [place] [address] [place] [address] Hematology/Oncology 03/30/21 Kristina Pete, MAE Specialty Senior Technical Architect HOSPICE & PALLIATIVE MEDICINE 05/22/21 Juan Francisco Hutchinson, TELEPHONE ANSWERING SERVICE OPERATOR.INTERNET MARKETING CONSULTANT [address] [place] [address] Palliative Medicine Provider HOSPICE & PALLIATIVE MEDICINE 06/28/21 Kylie Mosher, RN Specialty Senior Technical Architect HOSPICE & PALLIATIVE MEDICINE 09/27/21 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 Specialty Start Date End Date Jose Vail MD PCP - General Internal Medicine 05/07/16 [place] [address] [place] [address] Consulting Hematology/Oncology 01/28/12 Marilyn Hughes, RN [phone] [place] [address] Specialty Senior Technical Architect Hematology/Oncology 11/09/19 [place] [address] [place] [address] Hematology/Oncology 03/30/21 Kristina Pete, MAE Specialty Senior Technical Architect HOSPICE & PALLIATIVE MEDICINE 05/22/21 Juan Francisco Hutchinson, TELEPHONE ANSWERING SERVICE OPERATOR.INTERNET MARKETING CONSULTANT [address] [place], [place] [address] Palliative Medicine Provider HOSPICE & PALLIATIVE MEDICINE 06/28/21 Kylie Mosher, RN Specialty Senior Technical Architect HOSPICE & PALLIATIVE MEDICINE 09/27/21 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 Specialty Start Date End Date Jose Vail MD PCP - General Internal Medicine 05/07/16 [place] [address] [place] [address] Consulting Hematology/Oncology 01/28/12 Marilyn Hughes, RN [phone] [place] [address] Specialty Senior Technical Architect Hematology/Oncology 11/09/19 [place] [address] [place] [address] Hematology/Oncology 03/30/21 Kristina Pete, RN Specialty Senior Technical Architect HOSPICE & PALLIATIVE MEDICINE 05/22/21 Juan Francisco Hutchinson, TELEPHONE ANSWERING SERVICE OPERATOR.INTERNET MARKETING CONSULTANT [address] [place] [address] Palliative Medicine Provider HOSPICE & PALLIATIVE MEDICINE 06/28/21 Kylie Mosher, RN Specialty Senior Technical Architect HOSPICE & PALLIATIVE MEDICINE 09/27/21 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 Specialty Start Date End Date Jose Vail MD PCP - General Internal Medicine 05/07/16 [place] [address] [place] [address] Consulting Hematology/Oncology 01/28/12 Marilyn Hughes, MAE [address] [place] [address] Specialty Senior Technical Architect Hematology/Oncology 11/09/19 [place] [address] [place] [address] Hematology/Oncology 03/30/21 Kristina Pete, RN Specialty Senior Technical Architect HOSPICE & PALLIATIVE MEDICINE 05/22/21 Juan Francisco Hutchinson, TELEPHONE ANSWERING SERVICE OPERATOR.INTERNET MARKETING CONSULTANT [address] [place] [address] Palliative Medicine Provider HOSPICE & PALLIATIVE MEDICINE 06/28/21 Kylie Mosher, RN Specialty Senior Technical Architect HOSPICE & PALLIATIVE MEDICINE 09/27/21 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 Specialty Start Date End Date Jose Vail MD PCP - General Internal Medicine 05/07/16 [place] [address] [place] [address] Consulting Hematology/Oncology 01/28/12 [place] [address] [place] [address] Specialty Senior Technical Architect Hematology/Oncology 11/09/19 [place] [address] [place] [address] Hematology/Oncology 03/30/21 Kristina Pete, MAE Specialty Senior Technical Architect HOSPICE & PALLIATIVE MEDICINE 05/22/21 Juan Francisco Hutchinson, TELEPHONE ANSWERING SERVICE OPERATOR.INTERNET MARKETING CONSULTANT [address] [place] [address] Palliative Medicine Provider HOSPICE & PALLIATIVE MEDICINE 06/28/21 Kylie Mosher RN Specialty Senior Technical Architect HOSPICE & PALLIATIVE MEDICINE 09/27/21 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 Specialty Start Date End Date Jose Vail MD PCP - General Internal Medicine 05/07/16 [place] [address] [place] [address] Consulting Hematology/Oncology 01/28/12 Marilyn Hughes, MAE [address] [place] [address] Specialty Senior Technical Architect Hematology/Oncology 11/09/19 [place] [address] [place] [address] Hematology/Oncology 03/30/21 Kristina Pete, MAE Specialty Senior Technical Architect HOSPICE & PALLIATIVE MEDICINE 05/22/21 Juan Francisco Hutchinson, TELEPHONE ANSWERING SERVICE OPERATOR.INTERNET MARKETING CONSULTANT [address] [place] [address] Palliative Medicine Provider HOSPICE & PALLIATIVE MEDICINE 06/28/21 Kylie Mosher RN Specialty Senior Technical Architect HOSPICE & PALLIATIVE MEDICINE 09/27/21 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 Specialty Start Date [place] [address] PCP - General Internal Medicine 05/07/16 [place] [address] Consulting Hematology/Oncology 01/28/12 Marilyn [place], RN [id number] [place] [address] Specialty Senior Technical Architect Hematology/Oncology 11/09/19 [place] [address] [place] [address] Hematology/Oncology 03/30/21 Kristina Pete, MAE Specialty Senior Technical Architect HOSPICE & PALLIATIVE MEDICINE 05/22/21 Juan Francisco Hutchinson, TELEPHONE ANSWERING SERVICE OPERATOR.INTERNET MARKETING CONSULTANT [address] [place] [address] Palliative Medicine Provider HOSPICE & PALLIATIVE MEDICINE 06/28/21 Kylie Mosher, RN Specialty Senior Technical Architect HOSPICE & PALLIATIVE MEDICINE 09/27/21 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 Specialty Start Date [place] [address] PCP - General Internal Medicine 05/07/16 [place] [address] Consulting Hematology/Oncology 01/28/12 Marilyn Hughes, MAE [address] [place] [address] Specialty Senior Technical Architect Hematology/Oncology 11/09/19 Cyn [place]ires MD [id number] [place] [address] Hematology/Oncology 03/30/21 Kristina Pete, RN Specialty Senior Technical Architect HOSPICE & PALLIATIVE MEDICINE 05/22/21 Juan Francisco Hutchinson, TELEPHONE ANSWERING SERVICE OPERATOR.INTERNET MARKETING CONSULTANT [address] [place] [address] Palliative Medicine Provider HOSPICE & PALLIATIVE MEDICINE 06/28/21 Kylie Mosher, RN Specialty Senior Technical Architect HOSPICE & PALLIATIVE MEDICINE 09/27/21 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 Specialty [place] [address] [place] [address] PCP - General Internal Medicine 05/07/16 [place] [address] [place] [address] Consulting Hematology/Oncology 01/28/12 Marilyn Hughes, MAE [address] [place] [address] Specialty Senior Technical Architect Hematology/Oncology 11/09/19 [place] [address] [place] [address] Hematology/Oncology 03/30/21 Kristina Pete, RN Specialty Senior Technical Architect HOSPICE & PALLIATIVE MEDICINE 05/22/21 Juan Francisco Hutchinson, TELEPHONE ANSWERING SERVICE OPERATOR.INTERNET MARKETING CONSULTANT [address] [place] [address] Palliative Medicine Provider HOSPICE & PALLIATIVE MEDICINE 06/28/21 Kylie Mosher, RN Specialty Senior Technical Architect HOSPICE & PALLIATIVE MEDICINE 09/27/21 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 Specialty [place] [address] [place] [address] PCP - General Internal Medicine 05/07/16 [place] [address] [place] [address] Consulting Hematology/Oncology 01/28/12 Marilyn Hughes, MAE [address] [place] [address] Specialty Senior Technical Architect Hematology/Oncology 11/09/19 [place] [address] [place] [address] Hematology/Oncology 03/30/21 Kristina Pete, RN Specialty Senior Technical Architect HOSPICE & PALLIATIVE MEDICINE 05/22/21 Juan Francisco Hutchinson, TELEPHONE ANSWERING SERVICE OPERATOR.INTERNET MARKETING CONSULTANT [address] [place] [address] Palliative Medicine Provider HOSPICE & PALLIATIVE MEDICINE 06/28/21 Kylie Mosher RN Specialty Senior Technical Architect HOSPICE & PALLIATIVE MEDICINE 09/27/21 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 Specialty [place] [address] [place] [address] PCP - General Internal Medicine 05/07/16 [place] [address] [place] [address] Consulting Hematology/Oncology 01/28/12 [place] [address] [place] [address] Specialty Senior Technical Architect Hematology/Oncology 11/09/19 [place] [address] [place] [address] Hematology/Oncology 03/30/21 Kristina Pete, MAE Specialty Senior Technical Architect HOSPICE & PALLIATIVE MEDICINE 05/22/21 Juan Francisco Hutchinson, TELEPHONE ANSWERING SERVICE OPERATOR.INTERNET MARKETING CONSULTANT [address] [place] [address] Palliative Medicine Provider HOSPICE & PALLIATIVE MEDICINE 06/28/21 Nomi, Kylie L, RN Specialty Senior Technical Architect HOSPICE & PALLIATIVE MEDICINE 09/27/21 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 Specialty Start Date [place] [address] PCP - General Internal Medicine 05/07/16 [place] [address] [place] [address] Consulting Hematology/Oncology 01/28/12 Marilyn Hughes, RN [id number] [place] [address] Specialty Senior Technical Architect Hematology/Oncology 11/09/19 [place] [address] [place] [address] Hematology/Oncology 03/30/21 Kristina Pete, MAE Specialty Senior Technical Architect HOSPICE & PALLIATIVE MEDICINE 05/22/21 Juan Francisco Hutchinson, TELEPHONE ANSWERING SERVICE OPERATOR.INTERNET MARKETING CONSULTANT [address] [place] [address] Palliative Medicine Provider HOSPICE & PALLIATIVE MEDICINE 06/28/21 Kylie Mosher RN Specialty Senior Technical Architect HOSPICE & PALLIATIVE MEDICINE 09/27/21 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 Specialty Start Date [place] [address] PCP - General Internal Medicine 05/07/16 [place] [address] [place] [address] Consulting Hematology/Oncology 01/28/12 Marilyn Hughes, RN [address] [place] [address] Specialty Senior Technical Architect Hematology/Oncology 11/09/19 [place] [address] [place] [address] Hematology/Oncology 03/30/21 Kristina Pete, MAE Specialty Senior Technical Architect HOSPICE & PALLIATIVE MEDICINE 05/22/21 Juan Francisco Hutchinson, TELEPHONE ANSWERING SERVICE OPERATOR.INTERNET MARKETING CONSULTANT [address] [place] [address] Palliative Medicine Provider HOSPICE & PALLIATIVE MEDICINE 06/28/21 Kylie Mosher, RN Specialty Senior Technical Architect HOSPICE & PALLIATIVE MEDICINE 09/27/21 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 Specialty [place] [address] [place] [address] PCP - General Internal Medicine 05/07/16 [place] [address] [place] [address] Consulting Hematology/Oncology 01/28/12 [place] [address] [place] [address] Specialty Senior Technical Architect Hematology/Oncology 11/09/19 [place] [address] [place] [address] Hematology/Oncology 03/30/21 Kristina Pete, MAE Specialty Senior Technical Architect HOSPICE & PALLIATIVE MEDICINE 05/22/21 Juan Francisco Hutchinson, TELEPHONE ANSWERING SERVICE OPERATOR.INTERNET MARKETING CONSULTANT [address] [place] [address] Palliative Medicine Provider HOSPICE & PALLIATIVE MEDICINE 06/28/21 Kylie Mosher, RN Specialty Senior Technical Architect HOSPICE & PALLIATIVE MEDICINE 09/27/21 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 Specialty [place] [address] [place] [address] PCP - General Internal Medicine 05/07/16 [place] [address] [place] [address] Consulting Hematology/Oncology 01/28/12 Marilyn Hughes, MAE [phone] [place] [address] Specialty Senior Technical Architect Hematology/Oncology 11/09/19 [place] [address] [place] [address] Hematology/Oncology 03/30/21 Kristina Pete, RN Specialty Senior Technical Architect HOSPICE & PALLIATIVE MEDICINE 05/22/21 Juan Francisco Hutchinson, TELEPHONE ANSWERING SERVICE OPERATOR.INTERNET MARKETING CONSULTANT [address] [facility] [place] [address] Palliative Medicine Provider HOSPICE & PALLIATIVE MEDICINE 06/28/21 Kylie Mosher RN Specialty Senior Technical Architect HOSPICE & PALLIATIVE MEDICINE 09/27/21 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 Specialty [place] [address] [place] [address] PCP - General Internal Medicine 05/07/16 [place] [address] [place] [address] Consulting Hematology/Oncology 01/28/12 Marilyn Hughes RN [phone] [place] [address] Specialty Senior Technical Architect Hematology/Oncology 11/09/19 [place] [address] [place] [address] Hematology/Oncology 03/30/21 Kristina Pete, RN Specialty Senior Technical Architect HOSPICE & PALLIATIVE MEDICINE 05/22/21 Juan Francisco Hutchinson, TELEPHONE ANSWERING SERVICE OPERATOR.INTERNET MARKETING CONSULTANT [address] [place] [address] Palliative Medicine Provider HOSPICE & PALLIATIVE MEDICINE 06/28/21 Kylie Mosher, RN Specialty Senior Technical Architect HOSPICE & PALLIATIVE MEDICINE 09/27/21 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 Specialty Start Date [place] [address] PCP - General Internal Medicine 05/07/16 [place] [address] Consulting Hematology/Oncology 01/28/12 Marilyn Hughes, MAE [address] [place] [address] Specialty Senior Technical Architect Hematology/Oncology 11/09/19 [place] [address] Hematology/Oncology 03/30/21 Kristina Pete, MAE Specialty Senior Technical Architect HOSPICE & PALLIATIVE MEDICINE 05/22/21 Juan Francisco Hutchinson, TELEPHONE ANSWERING SERVICE OPERATOR.INTERNET MARKETING CONSULTANT [address] [place] [address] Palliative Medicine Provider HOSPICE & PALLIATIVE MEDICINE 06/28/21 Kylie Mosher, RN Specialty Senior Technical Architect HOSPICE & PALLIATIVE MEDICINE 09/27/21 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 Specialty Start Date [place] [address] PCP - General Internal Medicine 05/07/16 [place] [address] Consulting Hematology/Oncology 01/28/12 Marilyn Hughes, MAE [phone] [place] [address] Specialty Senior Technical Architect Hematology/Oncology 11/09/19 [place] [address] [place] [address] Hematology/Oncology 03/30/21 Kristina Pete, RN Specialty Senior Technical Architect HOSPICE & PALLIATIVE MEDICINE 05/22/21 Juan Francisco Hutchinson, TELEPHONE ANSWERING SERVICE OPERATOR.INTERNET MARKETING CONSULTANT [address] [place] [address] Palliative Medicine Provider HOSPICE & PALLIATIVE MEDICINE 06/28/21 Kylie Mosher, RN Specialty Senior Technical Architect HOSPICE & PALLIATIVE MEDICINE 09/27/21 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 Specialty [place] [address] [place] [address] PCP - General Internal Medicine 05/07/16 [place] [address] [place] [address] Consulting Hematology/Oncology 01/28/12 Marilyn Hughes, MAE [address] [place] [address] Specialty Senior Technical Architect Hematology/Oncology 11/09/19 [place] [address] [place] [address] Hematology/Oncology 03/30/21 Kristina Pete, RN Specialty Senior Technical Architect HOSPICE & PALLIATIVE MEDICINE 05/22/21 Juan Francisco Hutchinson, TELEPHONE ANSWERING SERVICE OPERATOR.INTERNET MARKETING CONSULTANT [address] [place] [address] Palliative Medicine Provider HOSPICE & PALLIATIVE MEDICINE 06/28/21 Kylie Mosher, RN Specialty Senior Technical Architect HOSPICE & PALLIATIVE MEDICINE 09/27/21 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 Specialty [place] [address] [place] [address] PCP - General Internal Medicine 05/07/16 [place] [address] [place] [address] Consulting Hematology/Oncology 01/28/12 [place] [address] [place] [address] Specialty Senior Technical Architect Hematology/Oncology 11/09/19 [place] [address] [place] [address] Hematology/Oncology 03/30/21 Kristina Pete, MAE Specialty Senior Technical Architect HOSPICE & PALLIATIVE MEDICINE 05/22/21 Juan Francisco Hutchinson, TELEPHONE ANSWERING SERVICE OPERATOR.INTERNET MARKETING CONSULTANT [address] [place] [address] Palliative Medicine Provider HOSPICE & PALLIATIVE MEDICINE 06/28/21 Kylie Mosher RN Specialty Senior Technical Architect HOSPICE & PALLIATIVE MEDICINE 09/27/21 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 Specialty [place] [address] [place] [address] PCP - General Internal Medicine 05/07/16 [place] [address] [place] [address] Consulting Hematology/Oncology 01/28/12 [place] [address] [place] [address] Specialty Senior Technical Architect Hematology/Oncology 11/09/19 [place] [address] [place] [address] Hematology/Oncology 03/30/21 Kristina Pete, MAE Specialty Senior Technical Architect HOSPICE & PALLIATIVE MEDICINE 05/22/21 Juan Francisco Hutchinson, TELEPHONE ANSWERING SERVICE OPERATOR.INTERNET MARKETING CONSULTANT [address] [place] [address] Palliative Medicine Provider HOSPICE & PALLIATIVE MEDICINE 06/28/21 Kylie oMsher, RN Specialty Senior Technical Architect HOSPICE & PALLIATIVE MEDICINE 09/27/21 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 Specialty Start Date [place] [address] PCP - General Internal Medicine 05/07/16 [place] [address] [place] [address] Consulting Hematology/Oncology 01/28/12 Marilyn Hughes, MAE [id number] [place] [address] Specialty Senior Technical Architect Hematology/Oncology 11/09/19 [place] [address] [place] [address] Hematology/Oncology 03/30/21 Kristina Pete, MAE Specialty Senior Technical Architect HOSPICE & PALLIATIVE MEDICINE 05/22/21 Juan Francisco Hutchinson, TELEPHONE ANSWERING SERVICE OPERATOR.INTERNET MARKETING CONSULTANT [address] [place] [address] Palliative Medicine Provider HOSPICE & PALLIATIVE MEDICINE 06/28/21 Kylie Mosher, RN Specialty Senior Technical Architect HOSPICE & PALLIATIVE MEDICINE 09/27/21 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 Specialty Start Date [place] [address] PCP - General Internal Medicine 05/07/16 [place] [address] [place] [address] Consulting Hematology/Oncology 01/28/12 Marilyn Hughes RN [address] [place] [address] Specialty Senior Technical Architect Hematology/Oncology 11/09/19 [place] [address] [place] [address] Hematology/Oncology 03/30/21 Kristina Pete, RN Specialty Senior Technical Architect HOSPICE & PALLIATIVE MEDICINE 05/22/21 Juan Francisco Hutchinson, TELEPHONE ANSWERING SERVICE OPERATOR.INTERNET MARKETING CONSULTANT [address] [place] [address] Palliative Medicine Provider HOSPICE & PALLIATIVE MEDICINE 06/28/21 Kylie Mosher, RN Specialty Senior Technical Architect HOSPICE & PALLIATIVE MEDICINE 09/27/21 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 Specialty [place] [address] [place] [address] PCP - General Internal Medicine 05/07/16 [place] [address] [place] [address] Consulting Hematology/Oncology 01/28/12 [place] [address] [place] [address] Hematology/Oncology 03/30/21 Kristina Pete, MAE Specialty Senior Technical Architect HOSPICE & PALLIATIVE MEDICINE 05/22/21 Juan Francisco Hutchinson, TELEPHONE ANSWERING SERVICE OPERATOR.INTERNET MARKETING CONSULTANT [address] [place] [address] Palliative Medicine Provider HOSPICE & PALLIATIVE MEDICINE 06/28/21 Kylie Mosher, RN Specialty Senior Technical Architect HOSPICE & PALLIATIVE MEDICINE 09/27/21 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 Specialty [place] [address] [place] [address] PCP - General Internal Medicine 05/07/16 [place] [address] [place] [address] Consulting Hematology/Oncology 01/28/12 [place] [address] [place] [address] Hematology/Oncology 03/30/21 Kristina Pete, RN Specialty Senior Technical Architect HOSPICE & PALLIATIVE MEDICINE 05/22/21 Juan Francisco Hutchinson, TELEPHONE ANSWERING SERVICE OPERATOR.INTERNET MARKETING CONSULTANT [address] [place] [address] Palliative Medicine Provider HOSPICE & PALLIATIVE MEDICINE 06/28/21 Kylie Mosher, RN Specialty Senior Technical Architect HOSPICE & PALLIATIVE MEDICINE 09/27/21 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 Specialty [place] [address] [place] [address] PCP - General Internal Medicine 05/07/16 [place] [address] [place] [address] Consulting Hematology/Oncology 01/28/12 [place] [address] [place] [address] Hematology/Oncology 03/30/21 Kristina Pete, MAE Specialty Senior Technical Architect HOSPICE & PALLIATIVE MEDICINE 05/22/21 Juan Francisco Hutchinson, TELEPHONE ANSWERING SERVICE OPERATOR.INTERNET MARKETING CONSULTANT [address] [place] [address] Palliative Medicine Provider HOSPICE & PALLIATIVE MEDICINE 06/28/21 Kylie Mosher, RN Specialty Senior Technical Architect HOSPICE & PALLIATIVE MEDICINE 09/27/21 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 Specialty [place] [address] [place] [address] PCP - General Internal Medicine 05/07/16 [place] [address] [place] [address] Consulting Hematology/Oncology 01/28/12 [place] [address] [facility] [place] [address] Hematology/Oncology 03/30/21 Kristina Pete, MAE Specialty Senior Technical Architect HOSPICE & PALLIATIVE MEDICINE 05/22/21 Juan Francisco Hutchinson, TELEPHONE ANSWERING SERVICE OPERATOR.INTERNET MARKETING CONSULTANT [address] [place] [address] Palliative Medicine Provider HOSPICE & PALLIATIVE MEDICINE 06/28/21 Kylie Mosher, MAE Specialty Senior Technical Architect HOSPICE & PALLIATIVE MEDICINE 09/27/21 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 Specialty [place] [address] [place] [address] PCP - General Internal Medicine 05/07/16 [place] [address] [place] [address] Consulting Hematology/Oncology 01/28/12 [place] [address] [place] [address] Hematology/Oncology 03/30/21 Kristina Pete, MAE Specialty Senior Technical Architect HOSPICE & PALLIATIVE MEDICINE 05/22/21 Juan Francisco Hutchinson, TELEPHONE ANSWERING SERVICE OPERATOR.INTERNET MARKETING CONSULTANT [address] [place] [address] Palliative Medicine Provider HOSPICE & PALLIATIVE MEDICINE 06/28/21 Kylie Mosher, RN Specialty Senior Technical Architect HOSPICE & PALLIATIVE MEDICINE 09/27/21 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 Specialty [place] [address] [place] [address] PCP - General Internal Medicine 05/07/16 [place] [address] [place] [address] Consulting Hematology/Oncology 01/28/12 [place] [address] [facility] [place] [address] Hematology/Oncology 03/30/21 Kristina Pete, MAE Specialty Senior Technical Architect HOSPICE & PALLIATIVE MEDICINE 05/22/21 Juan Francisco Hutchinson, TELEPHONE ANSWERING SERVICE OPERATOR.INTERNET MARKETING CONSULTANT [address] [place] [address] Palliative Medicine Provider HOSPICE & PALLIATIVE MEDICINE 06/28/21 Kylie Mosher, RN Specialty Senior Technical Architect HOSPICE & PALLIATIVE MEDICINE 09/27/21 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 Specialty [place] [address] [place] [address] PCP - General Internal Medicine 05/07/16 [place] [address] [place] [address] Consulting Hematology/Oncology 01/28/12 [place] [address] [place] [address] Hematology/Oncology 03/30/21 Kristina Pete, MAE Specialty Senior Technical Architect HOSPICE & PALLIATIVE MEDICINE 05/22/21 Juan Francisco Hutchinson, TELEPHONE ANSWERING SERVICE OPERATOR.INTERNET MARKETING CONSULTANT [address] [place] [address] Palliative Medicine Provider HOSPICE & PALLIATIVE MEDICINE 06/28/21 Kylie Mosher, RN Specialty Senior Technical Architect HOSPICE & PALLIATIVE MEDICINE 09/27/21 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 Specialty [place] [address] [place] [address] PCP - General Internal Medicine 05/07/16 [place] [address] [place] [address] Consulting Hematology/Oncology 01/28/12 [place] [address] [place] [address] Hematology/Oncology 03/30/21 Kristina Pete, RN Specialty Senior Technical Architect HOSPICE & PALLIATIVE MEDICINE 05/22/21 Juan Francisco Hutchinson, TELEPHONE ANSWERING SERVICE OPERATOR.INTERNET MARKETING CONSULTANT [address] [place] [address] Palliative Medicine Provider HOSPICE & PALLIATIVE MEDICINE 06/28/21 Kylie Mosher, RN Specialty Senior Technical Architect HOSPICE & PALLIATIVE MEDICINE 09/27/21 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 Specialty [place] [address] [place] [address] PCP - General Internal Medicine 05/07/16 [place] [address] [place] [address] Consulting Hematology/Oncology 01/28/12 [place] [address] [place] [address] Hematology/Oncology 03/30/21 Kristina Pete, MAE Specialty Senior Technical Architect HOSPICE & PALLIATIVE MEDICINE 05/22/21 Juan Francisco Hutchinson, TELEPHONE ANSWERING SERVICE OPERATOR.INTERNET MARKETING CONSULTANT [address] [place] [address] Palliative Medicine Provider HOSPICE & PALLIATIVE MEDICINE 06/28/21 Kylie Mosher, RN Specialty Senior Technical Architect HOSPICE & PALLIATIVE MEDICINE 09/27/21 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 Specialty [place] [address] [place] [address] PCP - General Internal Medicine 05/07/16 [place] [address] [facility] [place] [address] Consulting Hematology/Oncology 01/28/12 [place] [address] [place] [address] Hematology/Oncology 03/30/21 Kristina Pete, MAE Specialty Senior Technical Architect HOSPICE & PALLIATIVE MEDICINE 05/22/21 Juan Francisco Hutchinson, TELEPHONE ANSWERING SERVICE OPERATOR.INTERNET MARKETING CONSULTANT [address] [place] [address] Palliative Medicine Provider HOSPICE & PALLIATIVE MEDICINE 06/28/21 Kylie Mosher, RN Specialty Senior Technical Architect HOSPICE & PALLIATIVE MEDICINE 09/27/21 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 Specialty [place] [address] [place] [address] PCP - General Internal Medicine 05/07/16 [place] [address] [place] [address] Consulting Hematology/Oncology 01/28/12 [place] [address] [place] [address] Hematology/Oncology 03/30/21 Kristina Pete, MAE Specialty Senior Technical Architect HOSPICE & PALLIATIVE MEDICINE 05/22/21 Juan Francisco Hutchinson, TELEPHONE ANSWERING SERVICE OPERATOR.INTERNET MARKETING CONSULTANT [address] [place] [address] Palliative Medicine Provider HOSPICE & PALLIATIVE MEDICINE 06/28/21 Kylie Mosher, RN Specialty Senior Technical Architect HOSPICE & PALLIATIVE MEDICINE 09/27/21 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 Specialty [place] [address] [place] [address] PCP - General Internal Medicine 05/07/16 [place] [address] [facility] [place] [address] Consulting Hematology/Oncology 01/28/12 [place] [address] [facility] [place] [address] Hematology/Oncology 03/30/21 Kristina Pete, MAE Specialty Senior Technical Architect HOSPICE & PALLIATIVE MEDICINE 05/22/21 Juan Francisco Hutchinson, TELEPHONE ANSWERING SERVICE OPERATOR.INTERNET MARKETING CONSULTANT [address] [facility] [place] [address] Palliative Medicine Provider HOSPICE & PALLIATIVE MEDICINE 06/28/21 Kylie Mosher, RN Specialty Senior Technical Architect HOSPICE & PALLIATIVE MEDICINE 09/27/21 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 Specialty [place] [address] [place] [address] PCP - General Internal Medicine 05/07/16 [place] [address] [place] [address] Consulting Hematology/Oncology 01/28/12 [place] [address] [place] [address] Hematology/Oncology 03/30/21 Kristina Pete, MAE Specialty Senior Technical Architect HOSPICE & PALLIATIVE MEDICINE 05/22/21 Juan Francisco Hutchinson, TELEPHONE ANSWERING SERVICE OPERATOR.INTERNET MARKETING CONSULTANT [address] [place] [address] Palliative Medicine Provider HOSPICE & PALLIATIVE MEDICINE 06/28/21 Kylie Mosher, RN Specialty Senior Technical Architect HOSPICE & PALLIATIVE MEDICINE 09/27/21 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 Specialty [place] [address] [place] [address] PCP - General Internal Medicine 05/07/16 [place] [address] [place] [address] Consulting Hematology/Oncology 01/28/12 [place] [address] [place] [address] Hematology/Oncology 03/30/21 Kristina Pete, RN Specialty Senior Technical Architect HOSPICE & PALLIATIVE MEDICINE 05/22/21 Juan Francisco Hutchinson, TELEPHONE ANSWERING SERVICE OPERATOR.INTERNET MARKETING CONSULTANT [address] [place] [address] Palliative Medicine Provider HOSPICE & PALLIATIVE MEDICINE 06/28/21 Kylie Mosher, RN Specialty Senior Technical Architect HOSPICE & PALLIATIVE MEDICINE 09/27/21 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 Specialty [place] [address] [place] [address] PCP - General Internal Medicine 05/07/16 [place] [address] [place] [address] Consulting Hematology/Oncology 01/28/12 [place] [address] [place] [address] Hematology/Oncology 03/30/21 Kristina Pete, MAE Specialty Senior Technical Architect HOSPICE & PALLIATIVE MEDICINE 05/22/21 Juan Francisco Hutchinson, TELEPHONE ANSWERING SERVICE OPERATOR.INTERNET MARKETING CONSULTANT [address] [place] [address] Palliative Medicine Provider HOSPICE & PALLIATIVE MEDICINE 06/28/21 Kylie Mosher, RN Specialty Senior Technical Architect HOSPICE & PALLIATIVE MEDICINE 09/27/21 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 Specialty [place] [address] [place] [address] PCP - General Internal Medicine 05/07/16 [place] [address] [place] [address] Consulting Hematology/Oncology 01/28/12 [place] [address] [facility] [place] [place] [address] Hematology/Oncology 03/30/21 Kristina Pete, RN Specialty Senior Technical Architect HOSPICE & PALLIATIVE MEDICINE 05/22/21 Juan Francisco Hutchinson, TELEPHONE ANSWERING SERVICE OPERATOR.INTERNET MARKETING CONSULTANT [address] [place] [address] Palliative Medicine Provider HOSPICE & PALLIATIVE MEDICINE 06/28/21 Kylie Mosher, MAE Specialty Senior Technical Architect HOSPICE & PALLIATIVE MEDICINE 09/27/21 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 Specialty [place] [address] [place] [address] PCP - General Internal Medicine 05/07/16 [place] [address] [place] [address] Consulting Hematology/Oncology 01/28/12 [place] [address] [place] [address] Hematology/Oncology 03/30/21 Juan Francisco Hutchinson, TELEPHONE ANSWERING SERVICE OPERATOR.INTERNET MARKETING CONSULTANT [address] [place] [address] Palliative Medicine Provider HOSPICE & PALLIATIVE MEDICINE 06/28/21 Kylie Mosher, RN Specialty Senior Technical Architect HOSPICE & PALLIATIVE MEDICINE 09/27/21 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 Specialty [place] [address] [place] [address] PCP - General Internal Medicine 05/07/16 [place] [address] [place] [address] Consulting Hematology/Oncology 01/28/12 [place] [address] [place] [address] Hematology/Oncology 03/30/21 Juan Francisco Hutchinson, TELEPHONE ANSWERING SERVICE OPERATOR.INTERNET MARKETING CONSULTANT [address] [place] [address] Palliative Medicine Provider HOSPICE & PALLIATIVE MEDICINE 06/28/21 Kylie Mosher, RN Specialty Senior Technical Architect HOSPICE & PALLIATIVE MEDICINE 09/27/21 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 Specialty Start Date [place] [address] PCP - General Internal Medicine 05/07/16 [place] [address] [place] [address] Consulting Hematology/Oncology 01/28/12 [place] [address] [place] [address] Hematology/Oncology 03/30/21 Juan Francisco Hutchinson, TELEPHONE ANSWERING SERVICE OPERATOR.INTERNET MARKETING CONSULTANT [address] [place] [address] Palliative Medicine Provider HOSPICE & PALLIATIVE MEDICINE 06/28/21 Kylie Mosher, RN Specialty Senior Technical Architect HOSPICE & PALLIATIVE MEDICINE 09/27/21 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 Specialty Start Date [place] [address] PCP - General Internal Medicine 05/07/16 [place] [address] [place] [address] Consulting Hematology/Oncology 01/28/12 [place] [address] [place] [address] Hematology/Oncology 03/30/21 Juan Francisco Hutchinson, TELEPHONE ANSWERING SERVICE OPERATOR.INTERNET MARKETING CONSULTANT [address] [place] [address] Palliative Medicine Provider HOSPICE & PALLIATIVE MEDICINE 06/28/21 Kylie Mosher, RN Specialty Senior Technical Architect HOSPICE & PALLIATIVE MEDICINE 09/27/21 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 Specialty [place] [address] [facility] [place] [address] PCP - General Internal Medicine 05/07/16 [place] [address] [facility] [place] [address] Consulting Hematology/Oncology 01/28/12 [place] [address] [facility] [place] [address] Hematology/Oncology 03/30/21 Juan Francisco Hutchinson, TELEPHONE ANSWERING SERVICE OPERATOR.INTERNET MARKETING CONSULTANT [address] [place] [address] Palliative Medicine Provider HOSPICE & PALLIATIVE MEDICINE 06/28/21 Kylie Mosher, RN Specialty Senior Technical Architect HOSPICE & PALLIATIVE MEDICINE 09/27/21 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 Specialty [place] [address] [facility] [place] [address] PCP - General Internal Medicine 05/07/16 [place] [address] [facility] [place] [address] Consulting Hematology/Oncology 01/28/12 [place] [address] [place] [address] Hematology/Oncology 03/30/21 Juan Francisco Hutchinson, TELEPHONE ANSWERING SERVICE OPERATOR.INTERNET MARKETING CONSULTANT [address] [place] [address] Palliative Medicine Provider HOSPICE & PALLIATIVE MEDICINE 06/28/21 Kylie Mosher, RN Specialty Senior Technical Architect HOSPICE & PALLIATIVE MEDICINE 09/27/21 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 Specialty [place] [address] [facility] [place] [address] PCP - General Internal Medicine 05/07/16 [place] [address] [place] [address] Consulting Hematology/Oncology 01/28/12 [place] [address] [facility] [place] [address] Hematology/Oncology 03/30/21 Juan Francisco Hutchinson, TELEPHONE ANSWERING SERVICE OPERATOR.INTERNET MARKETING CONSULTANT [address] [place] [id number] Palliative Medicine Provider HOSPICE & PALLIATIVE MEDICINE 06/28/21 Kylie Mosher, RN Specialty Senior Technical Architect HOSPICE & PALLIATIVE MEDICINE 09/27/21 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 Specialty [place] [address] [place] [address] PCP - General Internal Medicine 05/07/16 [place] [address] [place] [address] Consulting Hematology/Oncology 01/28/12 [place] [address] [place] [address] Hematology/Oncology 03/30/21 Juan Francisco Hutchinson, TELEPHONE ANSWERING SERVICE OPERATOR.INTERNET MARKETING CONSULTANT [address] [place] [address] Palliative Medicine Provider HOSPICE & PALLIATIVE MEDICINE 06/28/21 Kylie Mosher, RN Specialty Senior Technical Architect HOSPICE & PALLIATIVE MEDICINE 09/27/21 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 Specialty [place] [address] [place] [address] PCP - General Internal Medicine 05/07/16 [place] [address] [place] [address] Consulting Hematology/Oncology 01/28/12 [place] [address] [place] [address] Hematology/Oncology 03/30/21 Juan Francisco Hutchinson, TELEPHONE ANSWERING SERVICE OPERATOR.INTERNET MARKETING CONSULTANT [address] [place] [address] Palliative Medicine Provider HOSPICE & PALLIATIVE MEDICINE 06/28/21 Kylie Mosher, RN Specialty Senior Technical Architect HOSPICE & PALLIATIVE MEDICINE 09/27/21 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 Specialty [place] [address] [place] [address] PCP - General Internal Medicine 05/07/16 [place] [address] [place] [address] Consulting Hematology/Oncology 01/28/12 [place] [address] [facility] [place] [address] Hematology/Oncology 03/30/21 Kristina Pete, MAE Specialty Senior Technical Architect HOSPICE & PALLIATIVE MEDICINE 05/22/21 08/06/22 Juan Francisco Hutchinson, TELEPHONE ANSWERING SERVICE OPERATOR.INTERNET MARKETING CONSULTANT [address] [place] [id number] Palliative Medicine Provider HOSPICE & PALLIATIVE MEDICINE 06/28/21 Kylie Mosher RN Specialty Senior Technical Architect HOSPICE & PALLIATIVE MEDICINE 09/27/21 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 Specialty [place] [address] [facility] [place] [id number] PCP - General Internal Medicine 05/07/16 [place] [address] [place] [address] Consulting Hematology/Oncology 01/28/12 [place] [address] [facility] [place] [address] Hematology/Oncology 03/30/21 Juan Francisco Hutchinson, TELEPHONE ANSWERING SERVICE OPERATOR.INTERNET MARKETING CONSULTANT [address] [place] [id number] Palliative Medicine Provider HOSPICE & PALLIATIVE MEDICINE 06/28/21 Kylie Mosher RN Specialty Senior Technical Architect HOSPICE & PALLIATIVE MEDICINE 09/27/21 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 Specialty [place] [address] [place] [address] PCP - General Internal Medicine 05/07/16 [place] [address] [place] [address] Consulting Hematology/Oncology 01/28/12 [place] [address] [place] [address] Hematology/Oncology 03/30/21 Juan Francisco Hutchinson, TELEPHONE ANSWERING SERVICE OPERATOR.INTERNET MARKETING CONSULTANT [address] [place] [address] Palliative Medicine Provider HOSPICE & PALLIATIVE MEDICINE 06/28/21 Kylie Mosher, RN Specialty Senior Technical Architect HOSPICE & PALLIATIVE MEDICINE 09/27/21 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 Specialty [place] [address] [place] [address] PCP - General Internal Medicine 05/07/16 [place] [address] [place] [address] Consulting Hematology/Oncology 01/28/12 [place] [address] [place] [address] Hematology/Oncology 03/30/21 Juan Francisco Hutchinson, TELEPHONE ANSWERING SERVICE OPERATOR.INTERNET MARKETING CONSULTANT [address] [place], [place] [id number] Palliative Medicine Provider HOSPICE & PALLIATIVE MEDICINE 06/28/21 Kylie Mosher, RN Specialty Senior Technical Architect HOSPICE & PALLIATIVE MEDICINE 09/27/21 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 Specialty [place] [address] [place] [address] PCP - General Internal Medicine 05/07/16 [place] [address] [facility] [place] [address] Consulting Hematology/Oncology 01/28/12 [place] [address] [facility] [place] [address] Hematology/Oncology 03/30/21 Juan Francisco Hutchinson, TELEPHONE ANSWERING SERVICE OPERATOR.INTERNET MARKETING CONSULTANT [address] [place] [address] Palliative Medicine Provider HOSPICE & PALLIATIVE MEDICINE 06/28/21 Kylie Mosher, RN Specialty Senior Technical Architect HOSPICE & PALLIATIVE MEDICINE 09/27/21 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 Specialty [place] [address] [facility] [place] [address] PCP - General Internal Medicine 05/07/16 [place] [address] [facility] [place] [address] Consulting Hematology/Oncology 01/28/12 [place] [address] [facility] [place] [address] Hematology/Oncology 03/30/21 Juan Francisco Hutchinson, TELEPHONE ANSWERING SERVICE OPERATOR.INTERNET MARKETING CONSULTANT [address] [facility] [place], [place] [id number] Palliative Medicine Provider HOSPICE & PALLIATIVE MEDICINE 06/28/21 Kylie Mosher, RN Specialty Senior Technical Architect HOSPICE & PALLIATIVE MEDICINE 09/27/21 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 Specialty [place] [address] [place] [address] PCP - General Internal Medicine 05/07/16 [place] [address] [place] [address] Consulting Hematology/Oncology 01/28/12 [place] [address] [place] [address] Hematology/Oncology 03/30/21 Juan Francisco Hutchinson, LORY.INTERNET MARKETING CONSULTANT [address] [place], [place] [id number] Palliative Medicine Provider HOSPICE & PALLIATIVE MEDICINE 06/28/21 Kylie Mosher, RN Specialty Senior Technical Architect HOSPICE & PALLIATIVE MEDICINE 09/27/21 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 Specialty [place] [address] [place] [address] PCP - General Internal Medicine 05/07/16 [place] [address] [facility] [place] [address] Consulting Hematology/Oncology 01/28/12 [place] [address] [place] [address] Hematology/Oncology 03/30/21 Juan Francisco Hutchinson, TELEPHONE ANSWERING SERVICE OPERATOR.INTERNET MARKETING CONSULTANT [address] [place] [address] Palliative Medicine Provider HOSPICE & PALLIATIVE MEDICINE 06/28/21 Kylie Mosher, RN Specialty Senior Technical Architect HOSPICE & PALLIATIVE MEDICINE 09/27/21 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 Specialty [place] [address] [facility] [place] [address] PCP - General Internal Medicine 05/07/16 [place] [address] [facility] [place] [address] Consulting Hematology/Oncology 01/28/12 [place] [address] [facility] [place] [address] Hematology/Oncology 03/30/21 Juan Francisco Hutchinson, TELEPHONE ANSWERING SERVICE OPERATOR.INTERNET MARKETING CONSULTANT [address] [place] [address] Palliative Medicine Provider HOSPICE & PALLIATIVE MEDICINE 06/28/21 Kylie Mosher, RN Specialty Senior Technical Architect HOSPICE & PALLIATIVE MEDICINE 09/27/21 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 Specialty [place] [address] [facility] [place] [address] PCP - General Internal Medicine 05/07/16 [place] [address] [facility] [place] [address] Consulting Hematology/Oncology 01/28/12 [place] [address] [facility] [place] [address] Hematology/Oncology 03/30/21 Juan Francisco Hutchinson, TELEPHONE ANSWERING SERVICE OPERATOR.INTERNET MARKETING CONSULTANT [address] [place] [address] Palliative Medicine Provider HOSPICE & PALLIATIVE MEDICINE 06/28/21 Kylie Mosher, RN Specialty Senior Technical Architect HOSPICE & PALLIATIVE MEDICINE 09/27/21 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 Specialty [place] [address] [place] [address] PCP - General Internal Medicine 05/07/16 [place] [address] [place] [address] Consulting Hematology/Oncology 01/28/12 [place] [address] [place] [address] Hematology/Oncology 03/30/21 Juan Francisco Hutchinson, TELEPHONE ANSWERING SERVICE OPERATOR.INTERNET MARKETING CONSULTANT [address] [place] [address] Palliative Medicine Provider HOSPICE & PALLIATIVE MEDICINE 06/28/21 Kylie Mosher, RN Specialty Senior Technical Architect HOSPICE & PALLIATIVE MEDICINE 09/27/21 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 Specialty [place] [address] [place] [address] PCP - General Internal Medicine 05/07/16 [place] [address] [place] [address] Consulting Hematology/Oncology 01/28/12 [place] [address] [place] [address] Hematology/Oncology 03/30/21 Juan Francisco Hutchinson, TELEPHONE ANSWERING SERVICE OPERATOR.INTERNET MARKETING CONSULTANT [address] [place] [address] Palliative Medicine Provider HOSPICE & PALLIATIVE MEDICINE 06/28/21 Kylie Mosher, RN Specialty Senior Technical Architect HOSPICE & PALLIATIVE MEDICINE 09/27/21 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 Specialty [place] [address] [facility] [place] [address] PCP - General Internal Medicine 05/07/16 [place] [address] [facility] [place] [address] Consulting Hematology/Oncology 01/28/12 [place] [address] [facility] [place] [address] Hematology/Oncology 03/30/21 Juan Francisco Hutchinson, TELEPHONE ANSWERING SERVICE OPERATOR.INTERNET MARKETING CONSULTANT [address] [place] [address] Palliative Medicine Provider HOSPICE & PALLIATIVE MEDICINE 06/28/21 Kylie Mosher RN Specialty Senior Technical Architect HOSPICE & PALLIATIVE MEDICINE 09/27/21 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 Specialty [place] [address] [facility] [place] [address] PCP - General Internal Medicine 05/07/16 [place] [address] [facility] [place] [address] Consulting Hematology/Oncology 01/28/12 [place] [address] [place] [address] Hematology/Oncology 03/30/21 Juan Francisco Hutchinson, TELEPHONE ANSWERING SERVICE OPERATOR.INTERNET MARKETING CONSULTANT [address] [place] [id number] Palliative Medicine Provider HOSPICE & PALLIATIVE MEDICINE 06/28/21 Kylie Mosher, RN Specialty Senior Technical Architect HOSPICE & PALLIATIVE MEDICINE 09/27/21 Team Status: Active Member Role Status Dates Jose Vail MD Primary Care Provider Active Team Status: Inactive Member Role Status Dates Jose Vail MD Primary Care Provider Active Keke Bright NP-C Attending Provider Active 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 Specialty Start Date End Date Jose Vail MD PCP - General Internal Medicine 05/07/16 Juan Francisco Hutchinson, TELEPHONE ANSWERING SERVICE OPERATOR.INTERNET MARKETING CONSULTANT [address] [place] [id number] Palliative Medicine Provider Hospice & Palliative Medicine 06/28/21 Kylie Mosher, RN Specialty Senior Technical Architect Hospice & Palliative Medicine 09/27/21 Alexsander Ledezma MD [address] [place] [address] [place] [address] Physician Hematology 02/08/23 Linette Skinner, TELEPHONE ANSWERING SERVICE OPERATOR.INTERNET MARKETING CONSULTANT [address] [place] [address] Referring Nurse Practitioner 02/26/23 Linette Skinner, TELEPHONE ANSWERING SERVICE OPERATOR.INTERNET MARKETING CONSULTANT [address] [place] [address] Referring Nurse Practitioner 03/06/23 Fabiana Johnson, CUTTING MACHINE TENDER DECORATIVE Refrigerated Cargo Clerk 03/08/23 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 Specialty Start Date End Date Jose Vail MD PCP - General Internal Medicine 05/07/16 Juan Francisco Hutchinson, TELEPHONE ANSWERING SERVICE OPERATOR.INTERNET MARKETING CONSULTANT [address] [place] [id number] Palliative Medicine Provider Hospice & Palliative Medicine 06/28/21 Kylie Mosher, RN Specialty Senior Technical Architect Hospice & Palliative Medicine 09/27/21 Alexsander Ledezma MD [address] [place] [address] [place] [address] Physician Hematology 02/08/23 Linette Skinner, TELEPHONE ANSWERING SERVICE OPERATOR.INTERNET MARKETING CONSULTANT [address] [facility] [address] Referring Nurse Practitioner 02/26/23 Linette Skinner, TELEPHONE ANSWERING SERVICE OPERATOR.INTERNET MARKETING CONSULTANT [address] [facility] [address] Referring Nurse Practitioner 03/06/23 Fabiana Johnson, CUTTING MACHINE TENDER DECORATIVE Refrigerated Cargo Clerk 03/08/23 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 Specialty Start Date End Date Jose Vail MD PCP - General Internal Medicine 05/07/16 Juan Francisco Hutchinson, TELEPHONE ANSWERING SERVICE OPERATOR.INTERNET MARKETING CONSULTANT [address] [place] [id number] Palliative Medicine Provider Hospice & Palliative Medicine 06/28/21 Kylie Mosher, RN Specialty Senior Technical Architect Hospice & Palliative Medicine 09/27/21 Alexsander Ledezma MD [address] [place] [address] [place] [address] Physician Hematology 02/08/23 Linette Skinner, TELEPHONE ANSWERING SERVICE OPERATOR.INTERNET MARKETING CONSULTANT [address] [facility] [address] Referring Nurse Practitioner 02/26/23 Linette Skinner, TELEPHONE ANSWERING SERVICE OPERATOR.INTERNET MARKETING CONSULTANT [address] [place] [place] [address] [place] [address] Referring Nurse Practitioner 03/06/23 Fabiana Johnson, CUTTING MACHINE TENDER DECORATIVE Refrigerated Cargo Clerk 03/08/23 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 Specialty Start Date End Date Jose Vail MD PCP - General Internal Medicine 05/07/16 Juan Francisco Hutchinson, TELEPHONE ANSWERING SERVICE OPERATOR.INTERNET MARKETING CONSULTANT [address] [place] [address] Palliative Medicine Provider Hospice & Palliative Medicine 06/28/21 Kylie Mosher, RN Specialty Senior Technical Architect Hospice & Palliative Medicine 09/27/21 Alexsander Ledezma MD [address] [place] [address] [place] [address] Physician Hematology 02/08/23 Linette Skinner, TELEPHONE ANSWERING SERVICE OPERATOR.INTERNET MARKETING CONSULTANT [address] [place] [place] [address] [place] [address] Referring Nurse Practitioner 02/26/23 Linette Skinner, TELEPHONE ANSWERING SERVICE OPERATOR.INTERNET MARKETING CONSULTANT [address] [facility] [address] Referring Nurse Practitioner 03/06/23 Fabiana Johnson, CUTTING MACHINE TENDER DECORATIVE Refrigerated Cargo Clerk 03/08/23 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 Specialty Start Date End Date Jose Vail MD [address] [place] [address] [place] [address] PCP - [employer] 02/18/22 Jose Vail MD [address] [facility] [address] PCP - General Internal Medicine 06/26/22 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 Specialty Start Date End Date Jose Vail MD PCP - General Internal Medicine 05/07/16 Juan Francisco Hutchinson, TELEPHONE ANSWERING SERVICE OPERATOR.INTERNET MARKETING CONSULTANT [address] [place] [id number] Palliative Medicine Provider Hospice & Palliative Medicine 06/28/21 Kylie Mosher RN Specialty Senior Technical Architect Hospice & Palliative Medicine 09/27/21 Alexsander Ledezma MD [address] [place] [address] [place] [address] Physician Hematology 02/08/23 Linette Skinner, TELEPHONE ANSWERING SERVICE OPERATOR.INTERNET MARKETING CONSULTANT [address] [facility] [address] Referring Nurse Practitioner 02/26/23 Linette Skinner, TELEPHONE ANSWERING SERVICE OPERATOR.INTERNET MARKETING CONSULTANT [address] [facility] [address] Referring Nurse Practitioner 03/06/23 Fabiana Johnson LSW Refrigerated Cargo Clerk 03/08/23 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 Specialty Start Date End Date Jose Vail MD PCP - General Internal Medicine 05/07/16 Juan Francisco Hutchinson, TELEPHONE ANSWERING SERVICE OPERATOR.INTERNET MARKETING CONSULTANT [address] [place] [address] Palliative Medicine Provider Hospice & Palliative Medicine 06/28/21 Kylie Mosher, RN Specialty Senior Technical Architect Hospice & Palliative Medicine 09/27/21 Alexsander Ledezma MD [address] [place] [address] Physician Hematology 02/08/23 Linetet Skinner, TELEPHONE ANSWERING SERVICE OPERATOR.INTERNET MARKETING CONSULTANT [address] [facility] [address] Referring Nurse Practitioner 02/26/23 Linette Skinner, TELEPHONE ANSWERING SERVICE OPERATOR.INTERNET MARKETING CONSULTANT [address] [facility] [address] Referring Nurse Practitioner 03/06/23 Fabiana Johnson LSW Refrigerated Cargo Clerk 03/08/23 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 Specialty Start Date End Date Jose Vail MD PCP - General Internal Medicine 05/07/16 Juan Francisco Hutchinson, TELEPHONE ANSWERING SERVICE OPERATOR.INTERNET MARKETING CONSULTANT [address] [place] [address] Palliative Medicine Provider Hospice & Palliative Medicine 06/28/21 Kylie Mosher, RN Specialty Senior Technical Architect Hospice & Palliative Medicine 09/27/21 Alexsander Ledezma MD [address] [place] [address] Physician Hematology 02/08/23 Linette Skinner, TELEPHONE ANSWERING SERVICE OPERATOR.INTERNET MARKETING CONSULTANT [address] [facility] [address] Referring Nurse Practitioner 02/26/23 Linette Skinner, TELEPHONE ANSWERING SERVICE OPERATOR.INTERNET MARKETING CONSULTANT [address] [facility] [address] Referring Nurse Practitioner 03/06/23 Fabiana Johnson LSW Refrigerated Cargo Clerk 03/08/23 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 Specialty Start Date End Date Jose Vail MD PCP - General Internal Medicine 05/07/16 Juan Francisco Hutchinson, TELEPHONE ANSWERING SERVICE OPERATOR.INTERNET MARKETING CONSULTANT [address] [place] [address] Palliative Medicine Provider Hospice & Palliative Medicine 06/28/21 Kylie Mosher, RN Specialty Senior Technical Architect Hospice & Palliative Medicine 09/27/21 Alexsander Ledezma MD [address] [place] [address] [place] [address] Physician Hematology 02/08/23 Linette Skinner, TELEPHONE ANSWERING SERVICE OPERATOR.INTERNET MARKETING CONSULTANT [address] [facility] [address] Referring Nurse Practitioner 02/26/23 Linette Skinner, TELEPHONE ANSWERING SERVICE OPERATOR.INTERNET MARKETING CONSULTANT [address] [facility] [address] Referring Nurse Practitioner 03/06/23 Fabiana Johnson LSW Refrigerated Cargo Clerk 03/08/23 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 Specialty Start Date End Date Jose Vail MD PCP - General Internal Medicine 05/07/16 Juan Francisco Hutchinson, TELEPHONE ANSWERING SERVICE OPERATOR.INTERNET MARKETING CONSULTANT [address] [place] [address] Palliative Medicine Provider Hospice & Palliative Medicine 06/28/21 Kylie Mosher, RN Specialty Senior Technical Architect Hospice & Palliative Medicine 09/27/21 Alexsander Ledezma MD [address] [place] [address] Physician Hematology 02/08/23 Linette Skinner, TELEPHONE ANSWERING SERVICE OPERATOR.INTERNET MARKETING CONSULTANT [address] [facility] [address] Referring Nurse Practitioner 02/26/23 Linette Skinner, TELEPHONE ANSWERING SERVICE OPERATOR.INTERNET MARKETING CONSULTANT [address] [facility] [address] Referring Nurse Practitioner 03/06/23 Fabiana Johnson LSW Refrigerated Cargo Clerk 03/08/23 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 Specialty Start Date End Date Jose Vail MD PCP - General Internal Medicine 05/07/16 Juan Francisco Hutchinson, TELEPHONE ANSWERING SERVICE OPERATOR.INTERNET MARKETING CONSULTANT [address] [place] [address] Palliative Medicine Provider Hospice & Palliative Medicine 06/28/21 Kylie Mosher RN Specialty Senior Technical Architect Hospice & Palliative Medicine 09/27/21 Alexsander Ledezma MD [address] [place] [address] Physician Hematology 02/08/23 Linette Skinner, TELEPHONE ANSWERING SERVICE OPERATOR.INTERNET MARKETING CONSULTANT [address] [facility] [address] Referring Nurse Practitioner 02/26/23 Linette Skinner, TELEPHONE ANSWERING SERVICE OPERATOR.INTERNET MARKETING CONSULTANT [address] [facility] [address] Referring Nurse Practitioner 03/06/23 Fabiana Johnson LSW Refrigerated Cargo Clerk 03/08/23 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 Specialty Start Date End Date Jose Vail MD PCP - General Internal Medicine 05/07/16 Juan Francisco Hutchinson, TELEPHONE ANSWERING SERVICE OPERATOR.INTERNET MARKETING CONSULTANT [address] [place] [address] Palliative Medicine Provider Hospice & Palliative Medicine 06/28/21 Kylie Mosher, RN Specialty Senior Technical Architect Hospice & Palliative Medicine 09/27/21 Alexsander Ledezma MD [address] [place] [address] [place] [address] Physician Hematology 02/08/23 Linette Skinner, TELEPHONE ANSWERING SERVICE OPERATOR.INTERNET MARKETING CONSULTANT [address] [facility] [address] Referring Nurse Practitioner 02/26/23 Linette Skinner, TELEPHONE ANSWERING SERVICE OPERATOR.INTERNET MARKETING CONSULTANT [address] [facility] [address] Referring Nurse Practitioner 03/06/23 Fabiana Johnson LSW Refrigerated Cargo Clerk 03/08/23 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 Specialty Start Date End Date Jose Vail MD PCP - General Internal Medicine 05/07/16 Juan Francisco Hutchinson, TELEPHONE ANSWERING SERVICE OPERATOR.INTERNET MARKETING CONSULTANT [address] [place] [address] Palliative Medicine Provider Hospice & Palliative Medicine 06/28/21 Kylie Mosher, RN Specialty Senior Technical Architect Hospice & Palliative Medicine 09/27/21 Alexsander Ledezma MD [address] [place] [address] [place] [address] Physician Hematology 02/08/23 Linette Skinner, TELEPHONE ANSWERING SERVICE OPERATOR.INTERNET MARKETING CONSULTANT [address] [facility] [address] Referring Nurse Practitioner 02/26/23 Linette Skinner, TELEPHONE ANSWERING SERVICE OPERATOR.INTERNET MARKETING CONSULTANT [address] [facility] [address] Referring Nurse Practitioner 03/06/23 Fabiana Johnson, CUTTING MACHINE TENDER DECORATIVE Refrigerated Cargo Clerk 03/08/23 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 Specialty Start Date End Date Jose Vail MD PCP - General Internal Medicine 05/07/16 Juan Francisco Hutchinson, TELEPHONE ANSWERING SERVICE OPERATOR.INTERNET MARKETING CONSULTANT [address] [place] [address] Palliative Medicine Provider Hospice & Palliative Medicine 06/28/21 Kylie Mosher, RN Specialty Senior Technical Architect Hospice & Palliative Medicine 09/27/21 Alexsander Ledezma MD [address] [place] [address] [place] [address] Physician Hematology 02/08/23 Linette Skinner, TELEPHONE ANSWERING SERVICE OPERATOR.INTERNET MARKETING CONSULTANT [address] [place] [address] [place] [address] Referring Nurse Practitioner 02/26/23 Linette Skinner, TELEPHONE ANSWERING SERVICE OPERATOR.INTERNET MARKETING CONSULTANT [address] [facility] [address] Referring Nurse Practitioner 03/06/23 Fabiana Johnson, CUTTING MACHINE TENDER DECORATIVE Refrigerated Cargo Clerk 03/08/23 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 Specialty Start Date End Date Jose Vail MD PCP - General Internal Medicine 05/07/16 Juan Francisco Hutchinson, TELEPHONE ANSWERING SERVICE OPERATOR.INTERNET MARKETING CONSULTANT [address] [place] [address] Palliative Medicine Provider Hospice & Palliative Medicine 06/28/21 Kylie Mosher, RN Specialty Senior Technical Architect Hospice & Palliative Medicine 09/27/21 Alexsander Ledezma MD [address] [place] [address] [place] [address] Physician Hematology 02/08/23 Linette Skinner, TELEPHONE ANSWERING SERVICE OPERATOR.INTERNET MARKETING CONSULTANT [address] [facility] [address] Referring Nurse Practitioner 02/26/23 Linette Skinner, TELEPHONE ANSWERING SERVICE OPERATOR.INTERNET MARKETING CONSULTANT [address] [facility] [address] Referring Nurse Practitioner 03/06/23 Fabiana Johnson LSW Refrigerated Cargo Clerk 03/08/23 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 Specialty Start Date End Date Jose Vail MD PCP - General Internal Medicine 05/07/16 Juan Francisco Hutchinson, TELEPHONE ANSWERING SERVICE OPERATOR.INTERNET MARKETING CONSULTANT [address] [place] [address] Palliative Medicine Provider Hospice & Palliative Medicine 06/28/21 Kylie Mosher, RN Specialty Senior Technical Architect Hospice & Palliative Medicine 09/27/21 Alexsander Ledezma MD [address] [place] [address] [place] [address] Physician Hematology 02/08/23 Linette Skinner, TELEPHONE ANSWERING SERVICE OPERATOR.INTERNET MARKETING CONSULTANT [address] [facility] [place] [address] Referring Nurse Practitioner 02/26/23 Linette Skinner, TELEPHONE ANSWERING SERVICE OPERATOR.INTERNET MARKETING CONSULTANT [address] [facility] [address] Referring Nurse Practitioner 03/06/23 Fabiana Johnson LSW Refrigerated Cargo Clerk 03/08/23 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 Specialty Start Date End Date Jose Vail MD PCP - General Internal Medicine 05/07/16 Juan Francisco Hutchinson, TELEPHONE ANSWERING SERVICE OPERATOR.INTERNET MARKETING CONSULTANT [address] [place] [address] Palliative Medicine Provider Hospice & Palliative Medicine 06/28/21 Kylie Mosher RN Specialty Senior Technical Architect Hospice & Palliative Medicine 09/27/21 Alexsander Ledezma MD [address] [place] [address] [place] [address] Physician Hematology 02/08/23 Linette Skinner, TELEPHONE ANSWERING SERVICE OPERATOR.INTERNET MARKETING CONSULTANT [address] [facility] [address] Referring Nurse Practitioner 02/26/23 Linette Skinner, TELEPHONE ANSWERING SERVICE OPERATOR.INTERNET MARKETING CONSULTANT [address] [facility] [address] Referring Nurse Practitioner 03/06/23 Fabiana Johnson LSW Refrigerated Cargo Clerk 03/08/23 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 Specialty Start Date End Date Jose Vail MD PCP - General Internal Medicine 05/07/16 Juan Francisco Hutcihnson, TELEPHONE ANSWERING SERVICE OPERATOR.INTERNET MARKETING CONSULTANT [address] [place] [address] Palliative Medicine Provider Hospice & Palliative Medicine 06/28/21 Kylie Mosher, RN Specialty Senior Technical Architect Hospice & Palliative Medicine 09/27/21 Alexsander Ledezma MD [address] [place] [address] Physician Hematology 02/08/23 Linette Skinner, TELEPHONE ANSWERING SERVICE OPERATOR.INTERNET MARKETING CONSULTANT [address] [facility] [place] [address] Referring Nurse Practitioner 02/26/23 Linette Skinner, TELEPHONE ANSWERING SERVICE OPERATOR.INTERNET MARKETING CONSULTANT [address] [facility] [place] [address] Referring Nurse Practitioner 03/06/23 Fabiana Johnson LSW Refrigerated Cargo Clerk 03/08/23 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 Specialty Start Date End Date Jose Vail MD PCP - General Internal Medicine 05/07/16 Juan Francisco Hutchinson, TELEPHONE ANSWERING SERVICE OPERATOR.INTERNET MARKETING CONSULTANT [address] [place] [address], [place] [address] Palliative Medicine Provider Hospice & Palliative Medicine 06/28/21 Kylie Mosher, RN Specialty Senior Technical Architect Hospice & Palliative Medicine 09/27/21 Alexsander Ledezma MD [address] [place] [address] [place] [address] Physician Hematology 02/08/23 Linette Skinner, TELEPHONE ANSWERING SERVICE OPERATOR.INTERNET MARKETING CONSULTANT [address] [facility] [place] [address] Referring Nurse Practitioner 02/26/23 Linette Skinner, TELEPHONE ANSWERING SERVICE OPERATOR.INTERNET MARKETING CONSULTANT [address] [facility] [place] [address] Referring Nurse Practitioner 03/06/23 Fabiana Johnson LSW Refrigerated Cargo Clerk 03/08/23 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 Specialty Start Date End Date Jose Vail MD PCP - General Internal Medicine 05/07/16 Juan Francisco Hutchinson, TELEPHONE ANSWERING SERVICE OPERATOR.INTERNET MARKETING CONSULTANT [address] [place] [address] Palliative Medicine Provider Hospice & Palliative Medicine 06/28/21 Kylie Mosher, RN Specialty Senior Technical Architect Hospice & Palliative Medicine 09/27/21 Alexsander Ledezma MD [address] [place] [address] [place] [address] Physician Hematology 02/08/23 Linette Skinner, TELEPHONE ANSWERING SERVICE OPERATOR.INTERNET MARKETING CONSULTANT [address] [facility] [place] [address] Referring Nurse Practitioner 02/26/23 Linette Skinner, TELEPHONE ANSWERING SERVICE OPERATOR.INTERNET MARKETING CONSULTANT [address] [facility] [address] Referring Nurse Practitioner 03/06/23 Fabiana Johnson LSW Refrigerated Cargo Clerk 03/08/23 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 Specialty Start Date End Date Jose Vail MD PCP - General Internal Medicine 05/07/16 Juan Francisco Hutchinson, TELEPHONE ANSWERING SERVICE OPERATOR.INTERNET MARKETING CONSULTANT [address] [place] [address] Palliative Medicine Provider Hospice & Palliative Medicine 06/28/21 Kylie Mosher RN Specialty Senior Technical Architect Hospice & Palliative Medicine 09/27/21 Alexsander Ledezma MD [address] [place] [address] Physician Hematology 02/08/23 Linette Skinner, TELEPHONE ANSWERING SERVICE OPERATOR.INTERNET MARKETING CONSULTANT [address] [facility] [place] [address] Referring Nurse Practitioner 02/26/23 Linette Skinner, TELEPHONE ANSWERING SERVICE OPERATOR.INTERNET MARKETING CONSULTANT [address] [facility] [place] [address] Referring Nurse Practitioner 03/06/23 Fabiana Johnson LSW Refrigerated Cargo Clerk 03/08/23 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 Specialty Start Date End Date Jose Vail MD PCP - General Internal Medicine 05/07/16 Juan Francisco Hutchinson, TELEPHONE ANSWERING SERVICE OPERATOR.INTERNET MARKETING CONSULTANT [address] [place] [address] Palliative Medicine Provider Hospice & Palliative Medicine 06/28/21 Kylie Mosher, RN Specialty Senior Technical Architect Hospice & Palliative Medicine 09/27/21 Alexsander Ledezma MD [address] [facility] [place] [address] Physician Hematology 02/08/23 Linette Skinner, TELEPHONE ANSWERING SERVICE OPERATOR.INTERNET MARKETING CONSULTANT [address] [facility] [place] [address] Referring Nurse Practitioner 02/26/23 Linette Skinner, TELEPHONE ANSWERING SERVICE OPERATOR.INTERNET MARKETING CONSULTANT [address] [facility] [place] [address] Referring Nurse Practitioner 03/06/23 Fabiana Johnson LSW Refrigerated Cargo Clerk 03/08/23 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 Specialty Start Date End Date Jose Vail MD PCP - General Internal Medicine 05/07/16 Juan Francisco Hutchinson, TELEPHONE ANSWERING SERVICE OPERATOR.INTERNET MARKETING CONSULTANT [address] [place] [address] Palliative Medicine Provider Hospice & Palliative Medicine 06/28/21 Kylie Mosher, RN Specialty Senior Technical Architect Hospice & Palliative Medicine 09/27/21 Alexsander Ledezma MD [address] [place] [address] [place] [address] Physician Hematology 02/08/23 Linette Skinner, TELEPHONE ANSWERING SERVICE OPERATOR.INTERNET MARKETING CONSULTANT [address] [facility] [place] [address] Referring Nurse Practitioner 02/26/23 Linette Skinner, TELEPHONE ANSWERING SERVICE OPERATOR.INTERNET MARKETING CONSULTANT [address] [facility] [place] [address] Referring Nurse Practitioner 03/06/23 Fabiana Johnson LSW Refrigerated Cargo Clerk 03/08/23 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 Specialty Start Date End Date Jose Vail MD PCP - General Internal Medicine 05/07/16 Juan Francisco Hutchinson, TELEPHONE ANSWERING SERVICE OPERATOR.INTERNET MARKETING CONSULTANT [address] [place] [address] Palliative Medicine Provider Hospice & Palliative Medicine 06/28/21 Kylie Mosher, RN Specialty Senior Technical Architect Hospice & Palliative Medicine 09/27/21 Alexsander Ledezma MD [address] [place] [address] [place] [address] Physician Hematology 02/08/23 Linette Skinner, TELEPHONE ANSWERING SERVICE OPERATOR.INTERNET MARKETING CONSULTANT [address] [facility] [place] [address] Referring Nurse Practitioner 02/26/23 Linette Skinner, TELEPHONE ANSWERING SERVICE OPERATOR.INTERNET MARKETING CONSULTANT [address] [facility] [place] [address] Referring Nurse Practitioner 03/06/23 Fabiana Johnson, TATO Refrigerated Cargo Clerk 03/08/23 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 Specialty Start Date End Date Jose Vail MD PCP - General Internal Medicine 05/07/16 Juan Francisco Hutchinson, TELEPHONE ANSWERING SERVICE OPERATOR.INTERNET MARKETING CONSULTANT [address] [place] [address] Palliative Medicine Provider Hospice & Palliative Medicine 06/28/21 Kylie Mosher, RN Specialty Senior Technical Architect Hospice & Palliative Medicine 09/27/21 Alexsander Ledezma MD [address] [place] [address] [place] [address] Physician Hematology 02/08/23 Linette Skinner, TELEPHONE ANSWERING SERVICE OPERATOR.INTERNET MARKETING CONSULTANT [address] [facility] [place] [address] Referring Nurse Practitioner 02/26/23 Linette Skinner, TELEPHONE ANSWERING SERVICE OPERATOR.INTERNET MARKETING CONSULTANT [address] [facility] [place] [address] Referring Nurse Practitioner 03/06/23 Fabiana Johnson LSW Refrigerated Cargo Clerk 03/08/23 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 Specialty Start Date End Date Jose Vail MD PCP - General Internal Medicine 05/07/16 Juan Francisco Hutchinson, TELEPHONE ANSWERING SERVICE OPERATOR.INTERNET MARKETING CONSULTANT [address] [place] [address] Palliative Medicine Provider Hospice & Palliative Medicine 06/28/21 Kylie Mosher, RN Specialty Senior Technical Architect Hospice & Palliative Medicine 09/27/21 Alexsander Ledezma MD [address] [place] [address] [place] [address] Physician Hematology 02/08/23 Linette Skinner, TELEPHONE ANSWERING SERVICE OPERATOR.INTERNET MARKETING CONSULTANT [address] [place] [address] [place] [address] Referring Nurse Practitioner 02/26/23 Linette Skinner, TELEPHONE ANSWERING SERVICE OPERATOR.INTERNET MARKETING CONSULTANT [address] [facility] [place] [address] Referring Nurse Practitioner 03/06/23 Fabiana Johnson LSW Refrigerated Cargo Clerk 03/08/23 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 Specialty Start Date End Date Jose Vail MD PCP - General Internal Medicine 05/07/16 Juan Francisco Hutchinson, TELEPHONE ANSWERING SERVICE OPERATOR.INTERNET MARKETING CONSULTANT [address] [place] [address] Palliative Medicine Provider Hospice & Palliative Medicine 06/28/21 Kylie Mosher, RN Specialty Senior Technical Architect Hospice & Palliative Medicine 09/27/21 Alexsander Ledezma MD [address] [place] [address] [place] [address] Physician Hematology 02/08/23 Linette Skinner, TELEPHONE ANSWERING SERVICE OPERATOR.INTERNET MARKETING CONSULTANT [address] [facility] [place] [address] Referring Nurse Practitioner 02/26/23 Linette Skinner, TELEPHONE ANSWERING SERVICE OPERATOR.INTERNET MARKETING CONSULTANT [address] [facility] [place] [address] Referring Nurse Practitioner 03/06/23 Fabiana Johnson LSW Refrigerated Cargo Clerk 03/08/23 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 Specialty Start Date End Date Jose Vail MD PCP - General Internal Medicine 05/07/16 Juan Francisco Hutchinson, TELEPHONE ANSWERING SERVICE OPERATOR.INTERNET MARKETING CONSULTANT [address] [place] [address] Palliative Medicine Provider Hospice & Palliative Medicine 06/28/21 Kylie Mosher RN Specialty Senior Technical Architect Hospice & Palliative Medicine 09/27/21 Alexsander Ledezma MD [address] [place] [address] [place] [address] Physician Hematology 02/08/23 Linette Skinner, TELEPHONE ANSWERING SERVICE OPERATOR.INTERNET MARKETING CONSULTANT [address] [facility] [place] [address] Referring Nurse Practitioner 02/26/23 Linette Skinner, TELEPHONE ANSWERING SERVICE OPERATOR.INTERNET MARKETING CONSULTANT [address] [facility] [place] [address] Referring Nurse Practitioner 03/06/23 Fabiana Johnson LSW Refrigerated Cargo Clerk 03/08/23 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 Specialty Start Date End Date Jose Vail MD PCP - General Internal Medicine 05/07/16 Juan Francisco Hutchinson, TELEPHONE ANSWERING SERVICE OPERATOR.INTERNET MARKETING CONSULTANT [address] [place] [address] Palliative Medicine Provider Hospice & Palliative Medicine 06/28/21 Kylie Mosher, RN Specialty Senior Technical Architect Hospice & Palliative Medicine 09/27/21 Alexsander Ledezma MD [address] [place] [address] Physician Hematology 02/08/23 Lientte Skinner, TELEPHONE ANSWERING SERVICE OPERATOR.INTERNET MARKETING CONSULTANT [address] [facility] [place] [address] Referring Nurse Practitioner 02/26/23 Linette Skinner, TELEPHONE ANSWERING SERVICE OPERATOR.INTERNET MARKETING CONSULTANT [address] [facility] [place] [address] Referring Nurse Practitioner 03/06/23 Fabiana Johnson LSW Refrigerated Cargo Clerk 03/08/23 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 Specialty Start Date End Date Jose Vail MD PCP - General Internal Medicine 05/07/16 Juan Francisco Hutchinson, TELEPHONE ANSWERING SERVICE OPERATOR.INTERNET MARKETING CONSULTANT [address] [place] [address] Palliative Medicine Provider Hospice & Palliative Medicine 06/28/21 Kylie Mosher, RN Specialty Senior Technical Architect Hospice & Palliative Medicine 09/27/21 Alexsander Ledezma MD [address] [place] [address] [place] [address] Physician Hematology 02/08/23 Linette Skinner, TELEPHONE ANSWERING SERVICE OPERATOR.INTERNET MARKETING CONSULTANT [address] [facility] [place] [address] Referring Nurse Practitioner 02/26/23 Linette Skinner, TELEPHONE ANSWERING SERVICE OPERATOR.INTERNET MARKETING CONSULTANT [address] [facility] [place] [address] Referring Nurse Practitioner 03/06/23 Fabiana Johnson LSW Refrigerated Cargo Clerk 03/08/23 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 Specialty Start Date End Date Jose Vail MD PCP - General Internal Medicine 05/07/16 Juan Francisco Hutchinson, TELEPHONE ANSWERING SERVICE OPERATOR.INTERNET MARKETING CONSULTANT [address] [place] [address] Palliative Medicine Provider Hospice & Palliative Medicine 06/28/21 Kylie Mosher, RN Specialty Senior Technical Architect Hospice & Palliative Medicine 09/27/21 Alexsander Ledezma MD [address] [place] [address] [place] [address] Physician Hematology 02/08/23 Linette Skinner, TELEPHONE ANSWERING SERVICE OPERATOR.INTERNET MARKETING CONSULTANT [address] [facility] [place] [address] Referring Nurse Practitioner 02/26/23 Linette Skinner, TELEPHONE ANSWERING SERVICE OPERATOR.INTERNET MARKETING CONSULTANT [address] [facility] [place] [address] Referring Nurse Practitioner 03/06/23 Fabiana Johnson LSW Refrigerated Cargo Clerk 03/08/23 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 Specialty Start Date End Date Jose Vail MD PCP - General Internal Medicine 05/07/16 Juan Francisco Hutchinson, TELEPHONE ANSWERING SERVICE OPERATOR.INTERNET MARKETING CONSULTANT [address] [place] [address] Palliative Medicine Provider Hospice & Palliative Medicine 06/28/21 Kylie Mosher RN Specialty Senior Technical Architect Hospice & Palliative Medicine 09/27/21 Alexsander Ledezma MD [address] [place] [address] Physician Hematology 02/08/23 Linette Skinner, TELEPHONE ANSWERING SERVICE OPERATOR.INTERNET MARKETING CONSULTANT [address] [facility] [place] [address] Referring Nurse Practitioner 02/26/23 Linette Skinner, TELEPHONE ANSWERING SERVICE OPERATOR.INTERNET MARKETING CONSULTANT [address] [facility] [place] [address] Referring Nurse Practitioner 03/06/23 Fabiana Johnson LSW Refrigerated Cargo Clerk 03/08/23 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 Specialty Start Date End Date Jose Vail MD PCP - General Internal Medicine 05/07/16 Juan Francisco Hutchinson, TELEPHONE ANSWERING SERVICE OPERATOR.INTERNET MARKETING CONSULTANT [address] [place] [address] Palliative Medicine Provider Hospice & Palliative Medicine 06/28/21 Kylie Mosher, RN Specialty Senior Technical Architect Hospice & Palliative Medicine 09/27/21 Alexsander Ledezma MD [address] [place] [address] Physician Hematology 02/08/23 Linette Skinner, TELEPHONE ANSWERING SERVICE OPERATOR.INTERNET MARKETING CONSULTANT [address] [facility] [place] [address] Referring Nurse Practitioner 02/26/23 Linette Skinner, TELEPHONE ANSWERING SERVICE OPERATOR.INTERNET MARKETING CONSULTANT [address] [facility] [place] [address] Referring Nurse Practitioner 03/06/23 Faibana Johnson LSW Refrigerated Cargo Clerk 03/08/23 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 Specialty Start Date End Date Jose Vail MD PCP - General Internal Medicine 05/07/16 Juan Francisco Hutchinson, TELEPHONE ANSWERING SERVICE OPERATOR.INTERNET MARKETING CONSULTANT [address] [place] [address] Palliative Medicine Provider Hospice & Palliative Medicine 06/28/21 Kylie Mosher, RN Specialty Senior Technical Architect Hospice & Palliative Medicine 09/27/21 Alexsander Ledezma MD [address] [place] [address] [place] [address] Physician Hematology 02/08/23 Linette Skinner, TELEPHONE ANSWERING SERVICE OPERATOR.INTERNET MARKETING CONSULTANT [address] [facility] [place] [address] Referring Nurse Practitioner 02/26/23 Linette Skinner, TELEPHONE ANSWERING SERVICE OPERATOR.INTERNET MARKETING CONSULTANT [address] [facility] [place] [address] Referring Nurse Practitioner 03/06/23 Fabiana Johnson LSW Refrigerated Cargo Clerk 03/08/23 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 Specialty Start Date End Date Jose Vail MD PCP - General Internal Medicine 05/07/16 Juan Francisco Hutchinson, TELEPHONE ANSWERING SERVICE OPERATOR.INTERNET MARKETING CONSULTANT [address] [place] [address] Palliative Medicine Provider Hospice & Palliative Medicine 06/28/21 Kylie Mosher, RN Specialty Senior Technical Architect Hospice & Palliative Medicine 09/27/21 Alexsander Ledezma MD [address] [place] [address] Physician Hematology 02/08/23 Linette Skinner, TELEPHONE ANSWERING SERVICE OPERATOR.INTERNET MARKETING CONSULTANT [address] [facility] [place] [address] Referring Nurse Practitioner 02/26/23 Linette Skinner, TELEPHONE ANSWERING SERVICE OPERATOR.INTERNET MARKETING CONSULTANT [address] [facility] [place] [address] Referring Nurse Practitioner 03/06/23 Fabiana Johnson LSW Refrigerated Cargo Clerk 03/08/23 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 Specialty Start Date End Date Jose Vail MD PCP - General Internal Medicine 05/07/16 Juan Francisco Hutchinson, TELEPHONE ANSWERING SERVICE OPERATOR.INTERNET MARKETING CONSULTANT [address] [place] [address] Palliative Medicine Provider Hospice & Palliative Medicine 06/28/21 Kylie Mosher, RN Specialty Senior Technical Architect Hospice & Palliative Medicine 09/27/21 Alexsander Ledezma MD [address] [place] [address] [place] [address] Physician Hematology 02/08/23 Linette Skinner, TELEPHONE ANSWERING SERVICE OPERATOR.INTERNET MARKETING CONSULTANT [address] [facility] [place] [address] Referring Nurse Practitioner 02/26/23 Linette Skinner, TELEPHONE ANSWERING SERVICE OPERATOR.INTERNET MARKETING CONSULTANT [address] [facility] [place] [address] Referring Nurse Practitioner 03/06/23 Fabiana Johnson LSW Refrigerated Cargo Clerk 03/08/23 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 Specialty Start Date End Date Jose Vail MD PCP - General Internal Medicine 05/07/16 Juan Francisco Hutchinson, TELEPHONE ANSWERING SERVICE OPERATOR.INTERNET MARKETING CONSULTANT [address] [place] [address] Palliative Medicine Provider Hospice & Palliative Medicine 06/28/21 Kylie Mosher, RN Specialty Senior Technical Architect Hospice & Palliative Medicine 09/27/21 Alexsander Ledezma MD [address] [place] [address] [place] [address] Physician Hematology 02/08/23 Linette Skinner, TELEPHONE ANSWERING SERVICE OPERATOR.INTERNET MARKETING CONSULTANT [address] [place] [address] [place] [address] Referring Nurse Practitioner 02/26/23 Linette Skinner, TELEPHONE ANSWERING SERVICE OPERATOR.INTERNET MARKETING CONSULTANT [address] [place] [address] [place] [address] Referring Nurse Practitioner 03/06/23 Fabiana Johnson LSW Refrigerated Cargo Clerk 03/08/23 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 Specialty Start Date End Date Jose Vail MD PCP - General Internal Medicine 05/07/16 Juan Francisco Hutchinson, TELEPHONE ANSWERING SERVICE OPERATOR.INTERNET MARKETING CONSULTANT [address] [place] [address] Palliative Medicine Provider Hospice & Palliative Medicine 06/28/21 Kylie Mosher, RN Specialty Senior Technical Architect Hospice & Palliative Medicine 09/27/21 Alexsander Ledezma MD [address] [place] [address] [place] [address] Physician Hematology 02/08/23 Linette Skinner, TELEPHONE ANSWERING SERVICE OPERATOR.INTERNET MARKETING CONSULTANT [address] [facility] [place] [address] Referring Nurse Practitioner 02/26/23 Linette Skinner, TELEPHONE ANSWERING SERVICE OPERATOR.INTERNET MARKETING CONSULTANT [address] [facility] [place] [address] Referring Nurse Practitioner 03/06/23 Fabiana Johnson, CUTTING MACHINE TENDER DECORATIVE Refrigerated Cargo Clerk 03/08/23 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 Specialty Start Date End Date Jose Vail MD PCP - General Internal Medicine 05/07/16 Juan Francisco Hutchinson, TELEPHONE ANSWERING SERVICE OPERATOR.INTERNET MARKETING CONSULTANT [address] [place] [address] Palliative Medicine Provider Hospice & Palliative Medicine 06/28/21 Kylie Mosher RN Specialty Senior Technical Architect Hospice & Palliative Medicine 09/27/21 Alexsander Ledezma MD [address] [place] [address] [place] [address] Physician Hematology 02/08/23 Linette Skinner, TELEPHONE ANSWERING SERVICE OPERATOR.INTERNET MARKETING CONSULTANT [address] [facility] [place] [address] Referring Nurse Practitioner 02/26/23 Linette Skinner, TELEPHONE ANSWERING SERVICE OPERATOR.INTERNET MARKETING CONSULTANT [address] [facility] [place] [address] Referring Nurse Practitioner 03/06/23 Fabiana Johnson LSW Refrigerated Cargo Clerk 03/08/23 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 Specialty Start Date End Date Jose Vail MD PCP - General Internal Medicine 05/07/16 Juan Francisco Hutchinson, TELEPHONE ANSWERING SERVICE OPERATOR.INTERNET MARKETING CONSULTANT [facility] [place] [id number] Palliative Medicine Provider Hospice & Palliative Medicine 06/28/21 Kylie Mosher, RN Specialty Senior Technical Architect Hospice & Palliative Medicine 09/27/21 Alexsander Ledezma MD [address] [place] [address] [place] [address] Physician Hematology 02/08/23 Linette Skinner, TELEPHONE ANSWERING SERVICE OPERATOR.INTERNET MARKETING CONSULTANT [address] [facility] [place] [address] Referring Nurse Practitioner 02/26/23 Linette Skinner, TELEPHONE ANSWERING SERVICE OPERATOR.INTERNET MARKETING CONSULTANT [address] [facility] [place] [address] Referring Nurse Practitioner 03/06/23 Fabiana Johnson LSW Refrigerated Cargo Clerk 03/08/23 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 Specialty Start Date End Date Jose Vail MD PCP - General Internal Medicine 05/07/16 Juan Francisco Hutchinson, TELEPHONE ANSWERING SERVICE OPERATOR.INTERNET MARKETING CONSULTANT [address] [place] [address] Palliative Medicine Provider Hospice & Palliative Medicine 06/28/21 Kylie Mosher, RN Specialty Senior Technical Architect Hospice & Palliative Medicine 09/27/21 Alexsander Ledezma MD [address] [place] [address] Physician Hematology 02/08/23 Linette Skinner, TELEPHONE ANSWERING SERVICE OPERATOR.INTERNET MARKETING CONSULTANT [address] [facility] [place] [address] Referring Nurse Practitioner 02/26/23 Linette Skinner, TELEPHONE ANSWERING SERVICE OPERATOR.INTERNET MARKETING CONSULTANT [address] [facility] [place] [address] Referring Nurse Practitioner 03/06/23 Fabiana Johnson LSW Refrigerated Cargo Clerk 03/08/23 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 Specialty Start Date End Date Jose Vail MD PCP - General Internal Medicine 05/07/16 Juan Francisco Hutchinson, TELEPHONE ANSWERING SERVICE OPERATOR.INTERNET MARKETING CONSULTANT [address] [place] [address] Palliative Medicine Provider Hospice & Palliative Medicine 06/28/21 Kylie Mosher, RN Specialty Senior Technical Architect Hospice & Palliative Medicine 09/27/21 Alexsander Ledezma MD [address] [place] [address] [place] [address] Physician Hematology 02/08/23 Linette Skinner, TELEPHONE ANSWERING SERVICE OPERATOR.INTERNET MARKETING CONSULTANT [address] [facility] [place] [address] Referring Nurse Practitioner 02/26/23 Linette Skinner, TELEPHONE ANSWERING SERVICE OPERATOR.INTERNET MARKETING CONSULTANT [address] [facility] [place] [address] Referring Nurse Practitioner 03/06/23 Fabiana Johnson LSW Refrigerated Cargo Clerk 03/08/23 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 Specialty Start Date End Date Jose Vail MD PCP - General Internal Medicine 05/07/16 Juan Francisco Hutchinson, TELEPHONE ANSWERING SERVICE OPERATOR.INTERNET MARKETING CONSULTANT [address] [place] [address] Palliative Medicine Provider Hospice & Palliative Medicine 06/28/21 Kylie Mosher, RN Specialty Senior Technical Architect Hospice & Palliative Medicine 09/27/21 Alexsander Ledezma MD [address] [place] [address] Physician Hematology 02/08/23 Linette Skinner, TELEPHONE ANSWERING SERVICE OPERATOR.INTERNET MARKETING CONSULTANT [address] [facility] [place] [address] Referring Nurse Practitioner 02/26/23 Linette Skinner, TELEPHONE ANSWERING SERVICE OPERATOR.INTERNET MARKETING CONSULTANT [address] [facility] [place] [address] Referring Nurse Practitioner 03/06/23 Fabiana Johnson LSW Refrigerated Cargo Clerk 03/08/23 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 Specialty Start Date End Date Jose Vail MD PCP - General Internal Medicine 05/07/16 Juan Francisco Hutchinson, TELEPHONE ANSWERING SERVICE OPERATOR.INTERNET MARKETING CONSULTANT [address] [place] [address] Palliative Medicine Provider Hospice & Palliative Medicine 06/28/21 Kylie Mosher, RN Specialty Senior Technical Architect Hospice & Palliative Medicine 09/27/21 Alexsander Ledezma MD [address] [place] [address] Physician Hematology 02/08/23 Linette Skinner, TELEPHONE ANSWERING SERVICE OPERATOR.INTERNET MARKETING CONSULTANT [address] [facility] [place] [address] Referring Nurse Practitioner 02/26/23 Linette Skinner, TELEPHONE ANSWERING SERVICE OPERATOR.INTERNET MARKETING CONSULTANT [address] [facility] [place] [address] Referring Nurse Practitioner 03/06/23 Fabiana Johnson LSW Refrigerated Cargo Clerk 03/08/23 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 Specialty Start Date End Date Jose Vail MD PCP - General Internal Medicine 05/07/16 Juan Francisco Hutchinson, TELEPHONE ANSWERING SERVICE OPERATOR.INTERNET MARKETING CONSULTANT [address] [place] [address] Palliative Medicine Provider Hospice & Palliative Medicine 06/28/21 Kylie Mosher, RN Specialty Senior Technical Architect Hospice & Palliative Medicine 09/27/21 Alexsander Ledezma MD [address] [place] [address] Physician Hematology 02/08/23 Linette Skinner, TELEPHONE ANSWERING SERVICE OPERATOR.INTERNET MARKETING CONSULTANT [address] [facility] [place] [address] Referring Nurse Practitioner 02/26/23 Linette Skinner, TELEPHONE ANSWERING SERVICE OPERATOR.INTERNET MARKETING CONSULTANT [address] [facility] [place] [address] Referring Nurse Practitioner 03/06/23 Fabiana Johnson LSW Refrigerated Cargo Clerk 03/08/23 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 Specialty Start Date End Date Jose Vail MD PCP - General Internal Medicine 05/07/16 Juan Francisco Hutchinson, TELEPHONE ANSWERING SERVICE OPERATOR.INTERNET MARKETING CONSULTANT [address] [place] [address] Palliative Medicine Provider Hospice & Palliative Medicine 06/28/21 Kylie Mosher, RN Specialty Senior Technical Architect Hospice & Palliative Medicine 09/27/21 Alexsander Ledezma MD [address] [place] [address] Physician Hematology 02/08/23 Linette Skinner APRN.INTERNET MARKETING CONSULTANT [address] [facility] [place] [address] Referring Nurse Practitioner 02/26/23 Linette Skinner APRN.INTERNET MARKETING CONSULTANT [address] [facility] [place] [address] Referring Nurse Practitioner 03/06/23 Fabiana Johnson LSW Refrigerated Cargo Clerk 03/08/23 Goals (unrecognized section and content) Goals [...] BE BASED ON THE PRIMARY CLINICAL RECORDS. [employer] provides no warranty or guarantee of the accuracy or completeness of information in this document.
[2023-10-30 06:51] LABS: Alanine Aminotransferase 42 U/L (14-59); Albumin Globulin Ratio 0.9; Albumin Level 3.1 g/dL (3.4-5.0); Alkaline Phosphatase 68 U/L (46-116); Anion Gap 12.6; Aspartate Amino Transferase 31 U/L (15-37); BUN Creatinine Ratio 8.1; Bilirubin Total 0.6 mg/dL (0.2-1.0); Calcium 9.1 mg/dL (8.5-10.1); Carbon Dioxide 28.3 mmol/L (21.0-32.0); Chloride 104 mmol/L (98-107); Estimated GFR (African America >60 (>=60); Estimated GFR (Non-African Ame >60 (>=60); Globulin 3.5 g/dL; Glucose 117 mg/dL (74-106); Potassium 3.9 mmol/L (3.5-5.1); Sodium 141 mmol/L (136-145); Total Protein 6.6 g/dL (6.4-8.2)
--- NOTE | 2023-10-30 07:19 | RESP.RT ---
Pt was on 0.5L NC and walked to bathroom. SpO2 dropped to 86%. Increased to 2L and SpO2 recovered to 92%
[2023-10-30] MEDS: ATENOLOL 50 MG TABLET PO ×2 (08:26→21:29)
[2023-10-30] MEDS: ESCITALOPRAM 10 MG TABLET PO (08:26)
[2023-10-30] MEDS: GABAPENTIN 300 MG CAPSULE 600 MG PO ×2 (08:26→21:27)
[2023-10-30] MEDS: ACETAMINOPHEN 325 MG TABLET 650 MG PO ×2 (08:26→21:44)
[2023-10-30] MEDS: RIVAROXABAN 10 MG TABLET PO (08:27)
[2023-10-30] MEDS: BUDESONIDE 0.5 MG/2 ML AMPULE NEB IH ×2 (10:29→23:50)
--- NOTE | 2023-10-30 10:35 | RESP.RT ---
titrated down to 1L
--- NOTE | 2023-10-30 10:47 | P.IMPN_ITS ---
Progress Note: A&P Assessment and Plan (1) Sepsis: Assessment and Plan: Stable hemodynamics now. F/u blood and sputum cx. D/c IVF. C/w rocephin/levaquin Qualifiers: Sepsis type: sepsis due to unspecified organism Sepsis acute organ dysfunction status: without acute organ dysfunction Qualified Code(s): A41.9 - Sepsis, unspecified organism (2) Left lower lobe pneumonia: Assessment and Plan: On Rocephin/Levaquin. Improving but still hypoxic. Monitor closely. Qualifiers: Pneumonia type: due to unspecified organism Qualified Code(s): J18.9 - Pneumonia, unspecified organism (3) Acute respiratory failure with hypoxia: Assessment and Plan: Improved overall but still hypoxic. Wean of O2 as tolerated. Monitor. (4) Bronchiectasis with (acute) exacerbation: Assessment and Plan: On solumedrol/duonebs. On Rocephin/Levaquin (5) Chemotherapy-induced neuropathy: Assessment and Plan: C/w gabapentin (6) Restrictive lung disease: Assessment and Plan: At high risk of poor prognosis. Monitor . (7) Hypothyroid: Assessment and Plan: C/w levothyroxine. Qualifiers: Hypothyroidism type: unspecified Qualified Code(s): E03.9 - Hypothyroidism, unspecified Internal Medicine - PN: Subj Subjective Interval history: Seen and examined. Doing well. However, still hypoxic and requiring O2 supplementation. No overnight events. Exam Constitutional Vital Signs, click to edit/add: Last Vital Signs Temp 98.9 F 10/30/23 07:49 Pulse 95 H 10/30/23 10:29 Resp 16 10/30/23 10:29 BP 116/73 10/30/23 07:49 Pulse Ox 98 10/30/23 10:29 O2 Del Method Nasal Cannula 10/30/23 10:29 O2 Flow Rate 2 10/30/23 10:29 Common normals: oriented x3 General appearance: cooperative and comfortable Respiratory Common normals: normal respiratory effort and no use of accessory muscles Auscultation: rhonchi left lower and wheezes expiratory wheezes and throughout Cardio Common normals: regular rhythm, S1 normal heart sound and S2 normal heart sound Rate: tachycardic Extremity Common normals: normal to inspection and full ROM Neuro Common normals: oriented x3, moves all extremities, no focal motor deficits and no sensory deficits noted Psych Common normals: mental status grossly normal, thought process normal, denies homicidal ideation and denies suicidal ideation Internal Medicine - PN: Obj Da Labs Labs: Laboratory Results - last 24 hr 10/29/23 10/29/23 10/29/23 10:06 10:13 11:34 WBC 16.0 H RBC 4.55 Hgb 14.2 Hct 42.1 MCV 92.5 MCH 31.2 MCHC 33.7 RDW 13.4 Plt Count 345 MPV 9.3 L Neut % (Auto) 85.6 H Lymph % (Auto) 7.6 L [place] % (Auto) 5.4 Eos % (Auto) 0.8 L Baso % (Auto) 0.3 Neut # (Auto) 13.7 H Lymph # (Auto) 1.2 [place] # (Auto) 0.9 H Eos # (Auto) 0.1 Baso # (Auto) 0.1 Abs Immat Gran (auto) 0.05 H Imm/Tot Granulo (auto) 0.3 PT 10.2 INR 0.96 Sodium 137 Potassium 3.8 Chloride 101 Carbon Dioxide 28.0 Anion Gap 11.8 BUN 13.0 Creatinine 0.71 Est GFR ( Amer) >60 Est GFR (Non-Af Amer) >60 BUN/Creatinine Ratio 18.3 Glucose 104 Lactate 1.5 Calcium 8.8 Total Bilirubin 0.6 AST 28 ALT 49 Alkaline Phosphatase 80 Total Protein 7.2 Albumin 3.5 Globulin 3.7 Albumin/Globulin Ratio 0.9 Urine Color Lt. yellow Urine Clarity Clear Urine pH 6.0 Ur Specific [place] 1.020 Urine Protein Negative Urine Glucose (UA) Negative Urine Ketones Negative Urine Occult Blood Negative Urine Nitrite Negative Urine Bilirubin Negative Urine Urobilinogen 0.2 Ur Leukocyte Esterase Negative Influenza Type A Ag Negative Influenza Type B Ag Negative SARS-CoV-2 Ag (CV2AG) Negative 10/30/23 06:05 WBC 12.4 H RBC 4.39 Hgb 13.6 Hct 40.7 MCV 92.7 MCH 31.0 MCHC 33.4 RDW 13.4 Plt Count 325 MPV 9.1 L Neut % (Auto) 81.4 H Lymph % (Auto) 10.1 L [place] % (Auto) 7.5 Eos % (Auto) 0.6 L Baso % (Auto) 0.2 Neut # (Auto) 10.1 H Lymph # (Auto) 1.3 [place] # (Auto) 0.9 H Eos # (Auto) 0.1 Baso # (Auto) 0.0 Abs Immat Gran (auto) 0.03 Imm/Tot Granulo (auto) 0.2 PT INR Sodium 141 Potassium 3.9 Chloride 104 Carbon Dioxide 28.3 Anion Gap 12.6 BUN 6.0 L Creatinine 0.74 Est GFR ( Amer) >60 Est GFR (Non-Af Amer) >60 BUN/Creatinine Ratio 8.1 Glucose 117 H Lactate Calcium 9.1 Total Bilirubin 0.6 AST 31 ALT 42 Alkaline Phosphatase 68 Total Protein 6.6 Albumin 3.1 L Globulin 3.5 Albumin/Globulin Ratio 0.9 Urine Color Urine Clarity Urine pH Ur Specific [place] Urine Protein Urine Glucose (UA) Urine Ketones Urine Occult Blood Urine Nitrite Urine Bilirubin Urine Urobilinogen Ur Leukocyte Esterase Influenza Type A Ag Influenza Type B Ag SARS-CoV-2 Ag (CV2AG)
--- NOTE | 2023-10-30 11:00 | CM.NOTE ---
Rounds made with Dr. Horowitz, unable to wean off oxygen this AM. No discharge today. Discussed with pt possible need for home oxygen at discharge.
[2023-10-30] MEDS: FUROSEMIDE 40 MG TABLET 80 MG PO (11:30)
[2023-10-30] MEDS: OXYCODONE HCL 5 MG TABLET PO ×2 (12:13→19:30)
[2023-10-30] MEDS: CEFTRIAXONE 1,000 MG in 0.9 % SODIUM CHLORIDE 50 ML 100 MG IV (12:13)
--- NOTE | 2023-10-30 13:17 | SWNOTE1 ---
SW met with pt to discuss dc needs. Pt lives at home with family and has good support. Pt is independent at home. Possible need for home oxygen at discharge and pt is aware of this. SW to re-assess tomorrow to see if home oxygen is needed. No further discharge needs or concerns at this time.
[2023-10-30] MEDS: CYCLOBENZAPRINE HCL 10 MG TABLET PO ×2 (14:53→19:31)
--- NOTE | 2023-10-30 15:58 | RESP.RT ---
placed pt on room air
[2023-10-30] MEDS: LEVOFLOXACIN IN DEXTROSE 5 % 750 MG/150 ML PREMIX 150 MG IV (21:26)
[2023-10-30] MEDS: TRAZODONE HCL 50 MG TABLET 150 MG PO (21:44)
[2023-10-31 00:07] VITALS: PULSE 105; O2SAT 98
[2023-10-31 03:59] VITALS: PULSE 97; O2SAT 96
[2023-10-31] MEDS: IPRATROPIUM/ALBUTEROL SULFATE 3 ML AMPUL.NEB IH ×2 (03:59→07:02)
[2023-10-31] MEDS: OMEPRAZOLE 40 MG CAPSULE.DR PO (06:05)
[2023-10-31] MEDS: LEVOTHYROXINE SODIUM 75 MCG TABLET PO (06:05)
[2023-10-31] MEDS: OXYCODONE HCL 5 MG TABLET PO (06:06)
[2023-10-31] MEDS: CYCLOBENZAPRINE HCL 10 MG TABLET PO (06:27)
[2023-10-31 06:29] LABS: Basophils Percent Auto 0.4 % (0.2-2.0); Eosinophils Absolute Auto 0.2 10^3/uL (0.0-0.7); Eosinophils Percent Auto 2.9 % (0.9-7.0); Hematocrit 43.1 % (36.0-48.0); Hemoglobin 14.1 g/dL (12.0-16.0); Immature Granulocytes Abs Auto 0.03 10^3/uL (0.00-0.03); Immature Granulocytes Pct Auto 0.4 % (0.0-0.5); Lymphocytes Absolute Auto 1.8 10^3/uL (1.2-3.8); Lymphocytes Percent Auto 22.1 % (20.5-60.0); Mean Corpuscular HGB Conc 32.7 g/dL (29.9-35.2); Mean Corpuscular Hemoglobin 30.9 pg (26.7-34.0); Mean Corpuscular Volume 94.5 fL (81.0-99.0); Mean Platelet Volume 9.2 fL (9.5-13.5); Monocytes Absolute Auto 1.1 10^3/uL (0.3-0.8); Monocytes Percent Auto 13.2 % (1.7-12.0); Neutrophils Absolute Auto 4.9 10^3/uL (1.4-6.5); Platelet Count 351 10^3/uL (150-450); Red Blood Count 4.56 10^6/uL (4.20-5.40); Red Cell Distribution Width 13.5 % (11.0-15.0); White Blood Count 8.1 10^3/uL (4.0-11.0)
[2023-10-31 06:40] LABS: Alanine Aminotransferase 46 U/L (14-59); Albumin Globulin Ratio 0.9; Albumin Level 3.3 g/dL (3.4-5.0); Alkaline Phosphatase 67 U/L (46-116); Anion Gap 10.6; Aspartate Amino Transferase 41 U/L (15-37); BUN Creatinine Ratio 14.3; Bilirubin Total 0.6 mg/dL (0.2-1.0); Calcium 9.5 mg/dL (8.5-10.1); Chloride 101 mmol/L (98-107); Estimated GFR (African America >60 (>=60); Estimated GFR (Non-African Ame >60 (>=60); Globulin 3.7 g/dL; Glucose 108 mg/dL (74-106); Potassium 3.6 mmol/L (3.5-5.1); Sodium 141 mmol/L (136-145)
[2023-10-31 07:00] VITALS: BP 118/80; PULSE 106; TEMP 36.8; O2SAT 92
[2023-10-31 07:04] VITALS: O2SAT 98
[2023-10-31 07:38] VITALS: PULSE 106; O2SAT 92
[2023-10-31 08:00] VITALS: BP 118/80; PULSE 105; TEMP 36.8; O2SAT 92
[2023-10-31] MEDS: ATENOLOL 50 MG TABLET PO (09:42)
[2023-10-31] MEDS: RIVAROXABAN 10 MG TABLET PO (09:42)
[2023-10-31] MEDS: ESCITALOPRAM 10 MG TABLET PO (09:42)
[2023-10-31] MEDS: GABAPENTIN 300 MG CAPSULE 600 MG PO (09:42)
--- NOTE | 2023-10-31 09:50 | CM.NOTE ---
Rounds made with Dr. Horowitz. Now on room air. Plan for discharge today. All questions answered. Follow up approintment with PCP made. Dr. Horowitz discusses discharge medications with Pat. Understanding verbalized.
--- NOTE | 2023-10-31 11:58 | P.DS_ITS ---
DS: Providers Provider Date of admission: 10/29/23 15:43 Primary care physician: Non-Staff PhysicianMD Admitting clinician: Shaikh Lor Attending physician on admission: Shaikh Lor Attending physician on discharge: Shaikh Lor Discharging clinician: Shaikh Lor Anticipated date of discharge: 10/31/23 DS: Diagnosis Discharge Diagnosis (1) Sepsis: Qualifiers: Sepsis type: sepsis due to unspecified organism Sepsis acute organ dysfunction status: without acute organ dysfunction Qualified Code(s): A41.9 - Sepsis, unspecified organism (2) Left lower lobe pneumonia: Qualifiers: Pneumonia type: due to unspecified organism Qualified Code(s): J18.9 - Pneumonia, unspecified organism (3) Acute respiratory failure with hypoxia: (4) Bronchiectasis with (acute) exacerbation: (5) Chemotherapy-induced neuropathy: (6) Restrictive lung disease: (7) Hypothyroid: Qualifiers: Hypothyroidism type: unspecified Qualified Code(s): E03.9 - Hypothyroidism, unspecified DS: Summary Hospital Course Hospital Course: 43-year-old female with past medical history of Hodgkin's lymphoma, restrictive lung disease/bronchiectasis presented to ER with generalized malaise/weakness, productive cough, headache, shortness of breath with wheezing for 4 to 5 days. Workup in ER revealed left lower lobe pneumonia, acute respiratory failure with hypoxia with pulse ox as low as 80% on room air. Patient was started on IV Rocephin, azithromycin along with inhaled bronchodilators and IV solumedrol. Azithromycin was later on switched to Levaquin to have anti pseudomonal coverage. Patient progressively improved during the course of admission with resolution of her hypoxia and resp symptoms and felt more or less at her baseline today on day of discharge. Patient is medically stable for discharge on oral Levaquin/Doxycycline, prednisone taper. She was instructed to f/u with PCP in one week and to return to ED if she has worsening SOB, hypoxia, persistent fever. Status at Discharge Functional status at discharge: independent ambulation Overall status at discharge: patient is back to baseline Time Spent with Patient Time attestation: Total time spent providing and/or coordinating discharge services: Time spent: greater than 30 minutes Exam Constitutional Vital Signs, click to edit/add: Last Vital Signs Temp 98.2 F 10/31/23 08:00 Pulse 105 H 10/31/23 08:00 Resp 16 10/31/23 08:00 BP 118/80 10/31/23 08:00 Pulse Ox 92 L 10/31/23 08:00 O2 Del Method Room Air 10/31/23 08:00 O2 Flow Rate 1 10/31/23 07:04 Common normals: oriented x3 General appearance: cooperative and comfortable Respiratory Common normals: normal respiratory effort and no use of accessory muscles Auscultation: rhonchi left lower and wheezes expiratory wheezes and throughout Cardio Common normals: regular rhythm, S1 normal heart sound and S2 normal heart sound Rate: tachycardic Extremity Common normals: normal to inspection and full ROM Neuro Common normals: oriented x3, moves all extremities, no focal motor deficits and no sensory deficits noted Psych Common normals: mental status grossly normal, thought process normal, denies homicidal ideation and denies suicidal ideation DS: Data Data Completed and Pending Labs on day of discharge: Labs from last 24 hours 10/31/23 05:38 WBC 8.1 RBC 4.56 Hgb 14.1 Hct 43.1 MCV 94.5 MCH 30.9 MCHC 32.7 RDW 13.5 Plt Count 351 MPV 9.2 L Neut % (Auto) 61.0 Lymph % (Auto) 22.1 [place] % (Auto) 13.2 H Eos % (Auto) 2.9 Baso % (Auto) 0.4 Neut # (Auto) 4.9 Lymph # (Auto) 1.8 [place] # (Auto) 1.1 H Eos # (Auto) 0.2 Baso # (Auto) 0.0 Abs Immat Gran (auto) 0.03 Imm/Tot Granulo (auto) 0.4 Sodium 141 Potassium 3.6 Chloride 101 Carbon Dioxide 33.0 H Anion Gap 10.6 BUN 11.0 Creatinine 0.77 Est GFR ( Amer) >60 Est GFR (Non-Af Amer) >60 BUN/Creatinine Ratio 14.3 Glucose 108 H Calcium 9.5 Total Bilirubin 0.6 AST 41 H ALT 46 Alkaline Phosphatase 67 Total Protein 7.0 Albumin 3.3 L Globulin 3.7 Albumin/Globulin Ratio 0.9 Discharge Plan Discharge Disposition: Home, Self-Care Discharge Medications: New levofloxacin 750 mg tablet 750 mg PO DAILY 7 Days Qty: 7 0RF doxycycline hyclate 100 mg tablet 100 mg PO BID 7 Days Qty: 14 0RF prednisone 20 mg tablet 20 mg PO BID 5 Days Qty: 10 0RF Continued atenolol 50 mg tablet 50 mg PO BID gabapentin 300 mg capsule 600 mg PO BID Patient Comments: PER PATIENT: NOT TAKING TID, ONLY TAKES BID lorazepam 0.5 mg tablet 0.5 mg PO QID PRN (Reason: anxiety) mirtazapine 30 mg tablet 30 mg PO QPM Hold Instructions: Doctor's Order oxycodone 10 mg tablet 10 mg PO Q8H PRN (Reason: pain) Xarelto 10 mg tablet 10 mg PO DAILY trazodone 100 mg tablet 100 mg PO .QHS PRN (Reason: sleep) cyclobenzaprine 10 mg tablet 10 mg PO BID PRN (Reason: muscle spasm) levothyroxine 75 mcg tablet 75 mcg PO .QD trazodone 50 mg tablet 50 mg PO .QHS PRN (Reason: sleep) escitalopram oxalate 10 mg tablet 10 mg PO DAILY ipratropium-albuterol 0.5 mg-3 mg(2.5 mg base)/3 mL solution for nebulization 3 ml INHALATION Q6H PRN (Reason: shortness of breath or wheezing) tolterodine 2 mg capsule,extended release 24hr 2 mg PO Q24H Hold Instructions: Doctor's Order Trelegy Ellipta 200-62.5-25 mcg blister with device 1 inh INHALATION Q24H pantoprazole 40 mg tablet,delayed release (DR/EC) 40 mg PO DAILY Activity: increase activity as tolerated Diet: advance to your usual diet Print Language: Spanish Patient Instructions: Sepsis (DC), Sepsis (GEN) Forms: Portal Instructions Follow Up Appointments: @ 10am with Lina Plata NP (Dr. Moya's office) [phone] Discharge Date/Time: 10/31/23 11:06
--- NOTE | 2023-11-01 14:07 | CM.DCFOLLOWU ---
10/31 1st attempt. No answer
--- NOTE | 2023-11-04 10:31 | CM.DCFOLLOWU ---
Person spoke with: Pat How are you feeling? Much better How is your pain? No pain Did you understand your discharge instructions? Yes Do you have any questions about your discharge instructions? No Were you given any prescriptions at discharge? Yes Were you able to get your prescriptions filled? Yes Do you understand how to take your medications as ordered? Yes Do you have any questions about your follow up appointment and do you plan to keep your follow up appointment? No I go on Wed, plan on going to appt Is there anything else that you would like to discuss? No Questions/Comments/Concerns/Other:
== END 2023-10-31 11:06 | disposition home or self-care (01) | DRG 871 ==
LOC: ER 13:04 → MS 10-30 06:25
PROVIDERS: Admitting Provider Internal Medicine; Emergency Provider Emergency Medicine Emergency Medical Services; Visit Provider Internal Medicine
DX: A41.9 Sepsis, unspecified organism (principal); J18.9 Pneumonia, unspecified organism; J96.01 Acute respiratory failure with hypoxia; Z94.84 Stem cells transplant status; J47.0 Bronchiectasis with acute lower respiratory infection; J47.1 Bronchiectasis with (acute) exacerbation; G62.0 Drug-induced polyneuropathy; E03.9 Hypothyroidism, unspecified; J98.4 Other disorders of lung; G47.00 Insomnia, unspecified; T45.1X5A Adverse effect of antineoplastic and immunosuppressive drugs, initial encounter; Z85.71 Personal history of Hodgkin lymphoma; Z79.890 Hormone replacement therapy; Z79.899 Other long term (current) drug therapy; Z20.822 Contact with and (suspected) exposure to COVID-19
CPT/HCPCS: 36415; 71045; 71250; 80053; 81003; 82800; 83605; 85025; 85610; 87040; 87804; 87811; 94640; 94761; 96365; 96366; 96367; 96375; 96376; 99285; J0456; J0696; J1170; J2270

== ENCOUNTER 2024-02-29 12:38 | Observation (INO) | payer MEDICARE, MEDICAID, SELFPAY ==
[2024-02-29] VITALS (22 sets, daily range): BP systolic 103–151; BP diastolic 65–97; PULSE 100–122; TEMP 36.4–38.4; O2SAT 87–99; BMI 28.5; BMI 31.9
--- NOTE | 2024-02-29 13:02 | ED.GENADUL1 ---
HPI HPI - General Adult General Chief complaint: Chest Pain Stated complaint: SOB CHEST PAIN Time Seen by Provider: 02/29/24 12:57 Source: patient Mode of arrival: Wheelchair Limitations: no limitations History of Present Illness HPI narrative: 43-year-old female presents to the emergency department for chest pain and feeling short of breath. It began today. Yesterday she was fine but she woke up this way. It is hurting down the middle part of her chest and she has been coughing. She took her temperature just before coming in and she had a fever. She has not yet had any Tylenol or Motrin today. Related Data Home Medications ?Medication ?Instructions ?Recorded ?Confirmed atenolol 50 mg tablet 50 mg PO BID 04/02/23 10/29/23 cyclobenzaprine 10 mg tablet 10 mg PO BID PRN muscle spasm 04/02/23 10/29/23 gabapentin 300 mg capsule 600 mg PO BID 04/02/23 10/30/23 levothyroxine 75 mcg tablet 75 mcg PO .QD 04/02/23 10/29/23 lorazepam 0.5 mg tablet 0.5 mg PO QID PRN anxiety 04/02/23 10/29/23 mirtazapine 30 mg tablet 30 mg PO QPM 04/02/23 10/29/23 oxycodone 10 mg tablet 10 mg PO Q8H PRN pain 04/02/23 10/29/23 rivaroxaban 10 mg tablet (Xarelto) 10 mg PO DAILY 04/02/23 10/29/23 trazodone 100 mg tablet 100 mg PO .QHS PRN sleep 04/02/23 10/30/23 trazodone 50 mg tablet 50 mg PO .QHS PRN sleep 04/02/23 10/29/23 fluticasone fur. 200 mcg-umeclid 1 inh inhalation Q24H 07/31/23 10/29/23 62.5 mcg-vilant 25 mcg inhalat.powder (Trelegy Ellipta) pantoprazole 40 mg tablet,delayed 40 mg PO DAILY 07/31/23 10/29/23 release escitalopram oxalate 10 mg tablet 10 mg PO DAILY 10/29/23 10/29/23 ipratropium 0.5 mg-albuterol 3 mg 3 ml inhalation Q6H PRN shortness 10/29/23 10/29/23 (2.5 mg base)/3 mL nebulization of breath or wheezing soln tolterodine 2 mg capsule,extended 2 mg PO Q24H 10/29/23 10/29/23 release 24 hr Previous Rx's ?Medication ?Instructions ?Recorded doxycycline hyclate 100 mg tablet 100 mg PO BID 7 days #14 tabs 10/31/23 prednisone 20 mg tablet 20 mg PO BID 5 days #10 tabs 10/31/23 Allergies Allergy/AdvReac Type Severity Reaction Status Date / Time NSAIDS (Non-Steroidal AdvReac Mild Unknown Verified 10/29/23 11:05 Anti-Inflamma Sulfa (Sulfonamide AdvReac Mild Rash Verified 10/29/23 10:04 Antibiotics) Opioid HPI Opioid Management Most Recent Opioid Data: Last Pain Scale 0 10/31/23 10:42 10/31/23 Last ORT Total Score 1 10/29/23 16:07 10/29/23 Last ORT Risk Category Low Risk 10/29/23 16:07 10/29/23 Review of Systems ROS Narrative A ten point review of systems is negative except as noted above. [facility] Medical History (Updated 02/29/24 @ 15:32 by Cesar Ellsworth MD) Bronchiectasis with (acute) exacerbation ?J47.1 - Bronchiectasis with (acute) exacerbation (ICD-10) Asthma with COPD with exacerbation ?J44.1 - Chronic obstructive pulmonary disease with (acute) exacerbation (ICD-10) ?J45.901 - Unspecified asthma with (acute) exacerbation (ICD-10) Left lower lobe pneumonia ?J18.9 - Pneumonia, unspecified organism (ICD-10) Pneumonia ?J18.9 - Pneumonia, unspecified organism (ICD-10) Hypothyroid ?E03.9 - Hypothyroidism, unspecified (ICD-10) Restrictive lung disease ?J98.4 - Other disorders of lung (ICD-10) 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 - Drug-induced polyneuropathy (ICD-10) ?T45.1X5A - Adverse effect of antineoplastic and immunosuppressive drugs, initial encounter (ICD-10) Hodgkin lymphoma ?C81.90 - Hodgkin lymphoma, unspecified, unspecified site (ICD-10) Insomnia ?G47.00 - Insomnia, unspecified (ICD-10) Tachycardia ?R00.0 - Tachycardia, unspecified (ICD-10) Surgical History (Updated 04/02/23 @ 08:34 by Rosmery Robert) H/O stem cell transplant ?Z94.84 - Stem cells transplant status (ICD-10) Social History (Updated 04/02/23 @ 08:30 by Rosmery Robert) Within the past year, how often did you have a drink containing alcohol: monthly or less Within the past year, how many standard drinks containing alcohol did you have on a typical day: 1 or 2 Within the past year, how often did you have six or more drinks on one occasion: never Total score: 0 Score interpretation: A score less than 3 is consistent with normal alcohol consumption. Smoking status: Never smoker Non-prescribed substance use: denies use Previous occupational history: unemployed Highest level of school completed/degree received: Associate degree: occupational, technical, vocational program Are you now , , , , never or living with a partner: In a typical week, how many times do you talk on the telephone with family, friends, or neighbors: 3 or more times per week How often do you get together with friends or relatives: 3 or more times per week How often do you attend christianity or islam services: never Do you belong to any clubs or organizations such as christianity groups unions, fraternal or athletic groups, or school groups: no Total score: 2 Score interpretation: A score of greater than or equal to 2 indicates the lowest level of social isolation. Little interest or pleasure in doing things: not at all Feeling down, depressed, or hopeless: not at all Feel stressed/tense/nervous/anxious/difficulty sleeping: not at all Do you think of yourself as: straight/heterosexual Gender Identity: female Exam Narrative Exam Narrative: Nurses note and vital signs reviewed and patient is not hypoxic. General: The patient appears in no acute distress and appears uncomfortable Skin: Warm, dry, no pallor noted. There is no rash noted. Head: Normocephalic, atraumatic Eye: Normal conjunctiva, no drainage Ears, Nose, Mouth, and Throat: oral mucosa is moist. Nares patent. Cardiovascular: Regular Rate and Rhythm, mildly tachycardia Respiratory: Rales present throughout and breath sounds are equal Back: non-tender GI: Soft and nontender Musculoskeletal: The patient has no evidence of calf tenderness, no pitting edema, symmetrical pulses noted bilaterally Neurological: A&O, normal speech Psychiatric: Cooperative Constitutional Vital Signs, click to edit/add: Last Vital Signs Temp 100.7 F H 02/29/24 14:08 Pulse 105 H 02/29/24 13:40 Resp 16 02/29/24 13:40 BP 135/88 02/29/24 14:03 Pulse Ox 91 L 02/29/24 13:40 O2 Del Method Nasal Cannula 02/29/24 12:45 O2 Flow Rate 2 02/29/24 12:45 Course Vital Signs Vital signs: Vital Signs Temperature 101.1 F H 02/29/24 12:43 Pulse Rate 118 H 02/29/24 12:43 Respiratory Rate 22 H 02/29/24 12:43 Blood Pressure 151/97 H 02/29/24 12:43 Pulse Oximetry 89 L 02/29/24 12:43 Oxygen Delivery Method Room Air 02/29/24 12:43 Temperature 100.7 F H 02/29/24 14:08 Pulse Rate 105 H 02/29/24 13:40 Respiratory Rate 16 02/29/24 13:40 Blood Pressure 135/88 02/29/24 14:03 Pulse Oximetry 91 L 02/29/24 13:40 Oxygen Delivery Method Nasal Cannula 02/29/24 12:45 Oxygen Delivery Flow Rate 2 02/29/24 12:45 Medical Decision Making MDM Narrative Medical decision making narrative: Pneumonia is identified on the x-ray per radiologist. The patient also presented with fever and an elevated white count of 16,000. COVID and influenza are negative. Blood cultures were obtained and lactic acid is pending. She was given IV Rocephin and Zithromax and is being admitted. She became quite dyspneic when ambulated and her O2 sat was 91% on 2 L. Treatment diagnosis and disposition were discussed with the patient. Differential Diagnosis Differential Diagnosis: Pneumonia, COVID, influenza Lab Data Lab results reviewed: Yes I reviewed the patient's lab results Labs: Lab Results 02/29/24 02/29/24 Range/Units 12:59 13:01 WBC 16.6 H (4.0-11.0) 10^3/uL RBC 4.65 (4.20-5.40) 10^6/uL Hgb 14.3 (12.0-16.0) g/dL Hct 43.5 (36.0-48.0) % MCV 93.5 (81.0-99.0) fL MCH 30.8 (26.7-34.0) pg MCHC 32.9 (29.9-35.2) g/dL RDW 13.0 (11.0-15.0) % Plt Count 288 (150-450) 10^3/uL MPV 9.2 L (9.5-13.5) fL Neut % (Auto) 84.9 H (43.0-75.0) % Lymph % (Auto) 8.0 L (20.5-60.0) % [place] % (Auto) 5.9 (1.7-12.0) % Eos % (Auto) 0.8 L (0.9-7.0) % Baso % (Auto) 0.2 (0.2-2.0) % Neut # (Auto) 14.1 H (1.4-6.5) 10^3/uL Lymph # (Auto) 1.3 (1.2-3.8) 10^3/uL [place] # (Auto) 1.0 H (0.3-0.8) 10^3/uL Eos # (Auto) 0.1 (0.0-0.7) 10^3/uL Baso # (Auto) 0.0 (0.0-0.1) 10^3/uL Abs Immat Gran (auto) 0.04 H (0.00-0.03) 10^3/uL Imm/Tot Granulo (auto) 0.2 (0.0-0.5) % Sodium 141 (136-145) mmol/L Potassium 4.0 (3.5-5.1) mmol/L Chloride 103 (98-107) mmol/L Carbon Dioxide 29.1 (21.0-32.0) mmol/L Anion Gap 12.9 BUN 8.0 (7.0-18.0) mg/dL Creatinine 0.80 (0.55-1.02) mg/dL Est GFR ( Amer) >60 (>=60 mL/min/1.73m^2) Est GFR (Non-Af Amer) >60 (>=60 mL/min/1.73m^2) BUN/Creatinine Ratio 10.0 Glucose 111 H (74-106) mg/dL Calcium 8.9 (8.5-10.1) mg/dL Troponin I High Sens 10.7 (4.0-51.3) pg/mL Influenza Type A Ag Negative Influenza Type B Ag Negative SARS-CoV-2 Ag (CV2AG) Negative (NEGATIVE) Imaging Data Chest x-ray: Radiologist's impression: ITS Impressions Chest X-Ray 02/29/24 14:05 IMPRESSION: Abnormal left chest findings suggesting infiltrate lower lobe possible adjacent pleural effusion. Findings increased from 10/29/2023, new from 03/31/2023. Follow-up recommended Electronically authenticated by: JACQUI GANDHI Date: 02/29/2024 14:51 ECG Data Attestation: I personally reviewed and interpreted this ECG as follows: (EKG on my interpretation shows sinus rhythm with a rate of 111 and no acute change) Discharge Plan Discharge Chief Complaint: Chest Pain Clinical Impression: Pneumonia, Hypoxemia Patient Disposition: Admitted As Inpatient Time of Disposition Decision: 15:31 Condition: Fair
[2024-02-29] MEDS: 0.9 % SODIUM CHLORIDE 1,000 ML 1000 ML IV (13:09)
[2024-02-29] MEDS: ACETAMINOPHEN 325 MG TABLET 650 MG PO (13:09)
[2024-02-29] MEDS: HYDROMORPHONE HCL 1 MG/ML CARTRIDGE IV (13:09)
[2024-02-29 13:20] LABS: Basophils Percent Auto 0.2 % (0.2-2.0); Eosinophils Absolute Auto 0.1 10^3/uL (0.0-0.7); Eosinophils Percent Auto 0.8 % (0.9-7.0); Hematocrit 43.5 % (36.0-48.0); Hemoglobin 14.3 g/dL (12.0-16.0); Immature Granulocytes Abs Auto 0.04 10^3/uL (0.00-0.03); Immature Granulocytes Pct Auto 0.2 % (0.0-0.5); Lymphocytes Absolute Auto 1.3 10^3/uL (1.2-3.8); Mean Corpuscular HGB Conc 32.9 g/dL (29.9-35.2); Mean Corpuscular Hemoglobin 30.8 pg (26.7-34.0); Mean Corpuscular Volume 93.5 fL (81.0-99.0); Mean Platelet Volume 9.2 fL (9.5-13.5); Monocytes Percent Auto 5.9 % (1.7-12.0); Neutrophils Absolute Auto 14.1 10^3/uL (1.4-6.5); Neutrophils Percent Auto 84.9 % (43.0-75.0); Platelet Count 288 10^3/uL (150-450); Red Blood Count 4.65 10^6/uL (4.20-5.40); White Blood Count 16.6 10^3/uL (4.0-11.0)
[2024-02-29 13:32] LABS: Anion Gap 12.9; Calcium 8.9 mg/dL (8.5-10.1); Carbon Dioxide 29.1 mmol/L (21.0-32.0); Chloride 103 mmol/L (98-107); Estimated GFR (African America >60 (>=60 mL/min/1.73m^2); Estimated GFR (Non-African Ame >60 (>=60 mL/min/1.73m^2); Glucose 111 mg/dL (74-106); Sodium 141 mmol/L (136-145)
[2024-02-29 13:40] LABS: Troponin I High Sensitivity 10.7 pg/mL (4.0-51.3)
[2024-02-29 13:41] LABS: Influenza Virus A Antigen Negative; Influenza Virus B Antigen Negative; Internal Control Within Normal Limits; SARS-CoV-2 Ag NEGATIVE (NEGATIVE)
--- NOTE | 2024-02-29 14:05 | XR_ITS ---
[facility] [id number] Patient Name: CELSO POTTS MRN: [id number] date: 1980 Sex: F Assigned Patient Location: ER Current Patient Location: ER Accession/Order Number: [id number] Exam Date: 02/29/2024 14:12 Report Date: 02/29/2024 14:51 At the request of: SAMRA PELLETIER Procedure: XR chest 1V EXAM: XR chest 1V HISTORY: Fever, cough COMPARISON: Chest x-ray 10/29/[address] 10/29/2023. TECHNIQUE: AP portable upright chest x-ray FINDINGS: Worsening density in the left lower chest retrocardiac area obscures the diaphragm and costophrenic angle. Suggest worsening infiltrate and pleural effusion. Markings prominent left mid lower lung field also increased. Left apex clear. Right lung markings prominent without focal density. No right pleural effusion. Cardiac enlargement unchanged 10/29/2023 increased from 03/31/2023 XR/XR chest 1V IMPRESSION: Abnormal left chest findings suggesting infiltrate lower lobe possible adjacent pleural effusion. Findings increased from 10/29/2023, new from 03/31/2023. Follow-up recommended Electronically authenticated by: JACQUI GANDHI Date: 02/29/2024 14:51
--- NOTE | 2024-02-29 14:35 | ECG_ITS ---
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
[2024-02-29] MEDS: CEFTRIAXONE 1,000 MG in 0.9 % SODIUM CHLORIDE 50 ML 100 MG IV (15:44)
[2024-02-29 16:04] LABS: Lactate/Lactic Acid 1.2 mmol/L (0.4-2.0)
--- NOTE | 2024-02-29 16:05 | P.HP_ITS ---
HPI H&P: HPI History of Present Illness Chief complaint: SOB CHEST PAIN, PNEUMONIA, HYPOXEMIA Narrative: 43-year-old female with past medical history of Hodgkin's lymphoma, restrictive lung disease, chemotherapy induced neuropathy, tachycardia, GERD, hypothyroidism, insomnia, depression/anxiety, who presented to ER with generalized weakness, headache, shortness of breath, and right sided chest/rib pain. Her symptoms progressively worsened today where she could not catch her breath because of the pain on her right side and came to ED for further evaluation. Workup in ER revealed left lower lobe pneumonia seen on Chest X- ray, acute respiratory failure with hypoxia with pulse ox as low as 87% on room air, recovered on 2L NC. Patient was started on IV Rocephin, azithromycin along with inhaled bronchodilators. She follows regularly with pulmonary at the [facility], she recently had a outpatient Bronch in december of 2023. She also had abnormal Echo and has Left sided heart cath scheduled for 03/13/24 along with a sleep study. She takes Xarelto for history of PE's. She has not missed a dose. She says the findings of her recent bronch showed nothing acute. Fever started today. ER findings: WBC's 16.6, Hb 14.3, Troponin 10.7, lactate 1.5, Blood cultures pending; temp 101, pulse 105, BP 135/88 Opioid HPI Opioid Management Most Recent Pain and Opioid Data: Last Pain Scale 0 10/31/23 10:42 10/31/23 Last ORT Total Score 1 10/29/23 16:07 10/29/23 Last ORT Risk Category Low Risk 10/29/23 16:07 10/29/23 Review of Systems ROS Narrative ROS: a complete review of systems were reviewed with patient and are positive as below or listed in History of Chief Complaint. General: fever, chills, no night sweats Head: headache, no trauma, visual changes, nausea or vomiting Skin: no reported rashes, itching or sores Eyes: no blurriness of vision Ears: no reported hearing loss, vertigo, earache, or tinnitus Throat: no sore throat, hoarseness, swelling of neck, or tongue pain Heart: no chest pain Lungs: shortness of breath and cough GI: no diarrhea or vomiting/nausea Urinary: no urinary urgency, frequency or pain Neuro: no numbness or tingling HEM: no bleeding issues or bruising ENDO: thyroid problems Psych: anxiety and depression [facility] Medical History (Updated 02/29/24 @ 16:57 by Katarzyna Antony DO) History of pulmonary embolism ?Z86.711 - Personal history of pulmonary embolism (ICD-10) Bronchiectasis with (acute) exacerbation ?J47.1 - Bronchiectasis with (acute) exacerbation (ICD-10) Asthma with COPD with exacerbation ?J44.1 - Chronic obstructive pulmonary disease with (acute) exacerbation (ICD-10) ?J45.901 - Unspecified asthma with (acute) exacerbation (ICD-10) Left lower lobe pneumonia ?J18.9 - Pneumonia, unspecified organism (ICD-10) Pneumonia ?J18.9 - Pneumonia, unspecified organism (ICD-10) Hypothyroid ?E03.9 - Hypothyroidism, unspecified (ICD-10) Restrictive lung disease ?J98.4 - Other disorders of lung (ICD-10) 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 - Drug-induced polyneuropathy (ICD-10) ?T45.1X5A - Adverse effect of antineoplastic and immunosuppressive drugs, initial encounter (ICD-10) Hodgkin lymphoma ?C81.90 - Hodgkin lymphoma, unspecified, unspecified site (ICD-10) Insomnia ?G47.00 - Insomnia, unspecified (ICD-10) Tachycardia ?R00.0 - Tachycardia, unspecified (ICD-10) Surgical History H/O stem cell transplant ?Z94.84 - Stem cells transplant status (ICD-10) Social History Within the past year, how often did you have a drink containing alcohol: monthly or less Within the past year, how many standard drinks containing alcohol did you have on a typical day: 1 or 2 Within the past year, how often did you have six or more drinks on one occasion: never Total score: 0 Score interpretation: A score less than 3 is consistent with normal alcohol consumption. Smoking status: Never smoker Non-prescribed substance use: denies use Previous occupational history: unemployed Highest level of school completed/degree received: Associate degree: occupational, technical, vocational program Are you now , , , , never or living with a partner: In a typical week, how many times do you talk on the telephone with family, friends, or neighbors: 3 or more times per week How often do you get together with friends or relatives: 3 or more times per week How often do you attend adventist or christian services: never Do you belong to any clubs or organizations such as adventist groups unions, [employer] or athletic groups, or school groups: no Total score: 2 Score interpretation: A score of greater than or equal to 2 indicates the lowest level of social isolation. Little interest or pleasure in doing things: not at all Feeling down, depressed, or hopeless: not at all Feel stressed/tense/nervous/anxious/difficulty sleeping: not at all Do you think of yourself as: straight/heterosexual Gender Identity: female Meds Home Medications and Allergies Home Medications ?Medication ?Instructions ?Recorded ?Confirmed ?Type atenolol 50 mg tablet 50 mg PO BID 04/02/23 10/29/23 History cyclobenzaprine 10 mg tablet 10 mg PO BID PRN muscle spasm 04/02/23 10/29/23 History gabapentin 300 mg capsule 600 mg PO BID 04/02/23 10/30/23 History levothyroxine 75 mcg tablet 75 mcg PO .QD 04/02/23 10/29/23 History lorazepam 0.5 mg tablet 0.5 mg PO QID PRN anxiety 04/02/23 10/29/23 History mirtazapine 30 mg tablet 30 mg PO QPM 04/02/23 10/29/23 History oxycodone 10 mg tablet 10 mg PO Q8H PRN pain 04/02/23 10/29/23 History rivaroxaban 10 mg tablet (Xarelto) 10 mg PO DAILY 04/02/23 10/29/23 History trazodone 100 mg tablet 100 mg PO .QHS PRN sleep 04/02/23 10/30/23 History trazodone 50 mg tablet 50 mg PO .QHS PRN sleep 04/02/23 10/29/23 History fluticasone fur. 200 mcg-umeclid 1 inh inhalation Q24H 07/31/23 10/29/23 History 62.5 mcg-vilant 25 mcg inhalat.powder (Trelegy Ellipta) pantoprazole 40 mg tablet,delayed 40 mg PO DAILY 07/31/23 10/29/23 History release escitalopram oxalate 10 mg tablet 10 mg PO DAILY 10/29/23 10/29/23 History ipratropium 0.5 mg-albuterol 3 mg 3 ml inhalation Q6H PRN shortness 10/29/23 10/29/23 History (2.5 mg base)/3 mL nebulization of breath or wheezing soln tolterodine 2 mg capsule,extended 2 mg PO Q24H 10/29/23 10/29/23 History release 24 hr doxycycline hyclate 100 mg tablet 100 mg PO BID 7 days #14 tabs 10/31/23 Rx prednisone 20 mg tablet 20 mg PO BID 5 days #10 tabs 10/31/23 Rx Allergies Allergy/AdvReac Type Severity Reaction Status Date / Time NSAIDS (Non-Steroidal AdvReac Mild Unknown Verified 10/29/23 11:05 Anti-Inflamma Sulfa (Sulfonamide AdvReac Mild Rash Verified 10/29/23 10:04 Antibiotics) Exam Narrative Exam Narrative: General: Patient is alert, and oriented to person, place and time with normal affect, proper hygiene Skin: no visible rashes, or ulcers Head: atraumatic, acephalic Eyes: PERRLA, no nystagmus present, conjunctiva clear, no scleral icterus Ears: normal gross auditory acuity Neck: no masses palpated, normal thyroid Heart: Normal rate and rhythm, no murmurs/rubs/gallops Lungs: audible wheezes, with restrictive breath sounds all lung rodriguez Abdomen: Normal audible bowel sounds, no distension, No palpable masses, no organomegaly, no rebound/guarding/ or rigidity Musculoskeletal: no swelling bilateral lower extremities Neuro: CN II-X grossly intact Constitutional Vital Signs, click to edit/add: Last Vital Signs Temp 100.7 F H 02/29/24 14:08 Pulse 112 H 02/29/24 15:40 Resp 17 02/29/24 15:40 BP 127/86 02/29/24 15:05 Pulse Ox 99 02/29/24 15:20 O2 Del Method Nasal Cannula 02/29/24 12:45 O2 Flow Rate 2 02/29/24 12:45 Results Labs Labs: Short CBC 02/29/24 Range/Units 12:59 WBC 16.6 H (4.0-11.0) 10^3/uL Hgb 14.3 (12.0-16.0) g/dL Hct 43.5 (36.0-48.0) % Plt Count 288 (150-450) 10^3/uL [facility] 02/29/24 12:59 Sodium 141 Potassium 4.0 Chloride 103 Carbon Dioxide 29.1 BUN 8.0 Creatinine 0.80 Glucose 111 H Calcium 8.9 Assessment and Plan Assessment and Plan (1) Left lower lobe pneumonia: Assessment and Plan: as seen on chest X-ray, treat with duonebs, pulmicort, OPEP, Levaquin IV and rocephin IV. Monitor oxygen saturations closely given history of restrictive lung disease and risk of serious complications/deteriorations. Covid and flu testing negative. In the setting of severe right sided rib/lung pain, and hypoxia, will get CTA of the Chest Qualifiers: Pneumonia type: due to unspecified organism Qualified Code(s): J18.9 - Pneumonia, unspecified organism (2) Acute respiratory failure with hypoxia: Assessment and Plan: secondary to #1, lactate normal, leukocytosis; sepsis ruled out. continue with oxygen therapy. (3) Hypothyroid: Assessment and Plan: continue levothyroxine Qualifiers: Hypothyroidism type: unspecified Qualified Code(s): E03.9 - Hypothyroidism, unspecified (4) Restrictive lung disease: Assessment and Plan: treat acute infection (5) Chemotherapy-induced neuropathy: Assessment and Plan: continue gabapentin (6) Insomnia: Assessment and Plan: continue trazodone Qualifiers: Insomnia type: unspecified Qualified Code(s): G47.00 - Insomnia, unspecified (7) Tachycardia: Assessment and Plan: continue propranolol (8) History of pulmonary embolism: Assessment and Plan: continue xarelto Plan Patient is a full code continue with Xarelto Patient is inpatient status and expected to stay 2-3 days to treat her community acquired pneumonia with acute respiratory failure.
[2024-02-29] MEDS: AZITHROMYCIN 500 MG in 0.9 % SODIUM CHLORIDE 250 ML 250 MG IV (16:14)
[2024-02-29 16:28] LABS: Magnesium 1.7 mg/dL (1.8-2.4)
--- NOTE | 2024-02-29 16:48 | CT_ITS ---
[address] [address] Patient Name: CELSO POTTS MRN: [id number] date: 1980 Sex: F Assigned Patient Location: [place] Current Patient Location: Accession/Order Number: [id number] Exam Date: 02/29/2024 19:55 Report Date: 02/29/2024 21:49 At the request of: DOREEN GUILLEN Procedure: CT angio chest EXAM: CT angio chest , 02/29/2024 HISTORY: hypoxia, right sided pain, history of PE COMPARISON: X-ray chest from 02/29/[address] scan chest without contrast from 10/29/2023. TECHNIQUE: CT scan of the chest was performed following 100 ml Omnipaque 350 intravenous iodine contrast injection with pulmonary artery protocol. 3-D, coronal and sagittal reconstruction performed. Dose reduction techniques were achieved by using automated exposure control and/or adjustment of mA and/or kV according to patient size and/or use of iterative reconstruction technique. FINDINGS: The imaging is partially limited due to motion/breathing artifacts and low lung volumes. The main pulmonary artery, right and left pulmonary arteries, bilateral lobar and segmental pulmonary arteries are patent and show no obvious filling defect to suggest major pulmonary thromboembolism. The lung windows demonstrate bilateral extensive patchy groundglass opacities which could be from inflammation/infection or edema. Mild scarring in the left perihilar region along the medial portion of the upper lobe and the lower lobe, recommend clinical correlation. There is moderate left pleural effusion. There is diffuse bronchial wall thickening, predominantly in the lower lobes. The mediastinal windows demonstrate patent thoracic aorta and great vessels. Prominent central pulmonary arteries could be due to pulmonary artery hypertension. No pericardial effusion or right-sided pleural effusion. No enlarged mediastinal or hilar lymph nodes. The esophagus is nondilated. The bone windows demonstrate no focal aggressive bone lesion. Limited scans through the upper abdomen show mild hepatic steatosis. CT/CT angio chest IMPRESSION: 1. No evidence of major pulmonary thromboembolism, evaluation partially limited due to motion/breathing artifacts. 2. Extensive bilateral groundglass densities and diffuse bronchial thickening, likely inflammation/infection or edema. Recommend clinical correlation. 3. Left perihilar left lung scarring. Moderate left pleural effusion. 4. Mild hepatic steatosis. Electronically authenticated by: SONIDO RICKETTS Date: 02/29/2024 21:49
[2024-02-29] MEDS: IPRATROPIUM/ALBUTEROL SULFATE 3 ML AMPUL.NEB IH ×2 (16:55→22:49)
[2024-02-29] MEDS: METHYLPREDNISOLONE SOD SUCC PF 40 MG/ML VIAL IVP (16:58)
[2024-02-29] MEDS: HYDROMORPHONE HCL 0.5 MG/0.5 ML SYRINGE IV ×2 (16:58→20:44)
[2024-02-29] MEDS: ONDANSETRON PF 4 MG/2 ML VIAL IV (17:10)
[2024-02-29] MEDS: GABAPENTIN 300 MG CAPSULE 600 MG PO (20:39)
[2024-02-29] MEDS: ESCITALOPRAM 10 MG TABLET PO (21:04)
[2024-02-29] MEDS: ACETAMINOPHEN 500 MG TABLET 1000 MG PO (21:04)
[2024-02-29] MEDS: RIVAROXABAN 10 MG TABLET PO (21:04)
[2024-02-29] MEDS: TRAZODONE HCL 50 MG TABLET PO (22:31)
[2024-02-29] MEDS: BUDESONIDE 0.5 MG/2 ML AMPULE NEB IH (22:49)
[2024-03-01] VITALS (12 sets, daily range): BP systolic 107–115; BP diastolic 71–75; PULSE 92–122; TEMP 36.5–36.6; O2SAT 92–98
[2024-03-01] MEDS: LORAZEPAM 0.5 MG TABLET PO (00:55)
[2024-03-01] MEDS: PROCHLORPERAZINE MALEATE 5 MG TABLET PO ×2 (00:55→06:10)
[2024-03-01] MEDS: METHYLPREDNISOLONE SOD SUCC PF 40 MG/ML VIAL IVP ×2 (00:55→09:06)
[2024-03-01] MEDS: IPRATROPIUM/ALBUTEROL SULFATE 3 ML AMPUL.NEB IH ×2 (04:02→11:00)
[2024-03-01] MEDS: LEVOTHYROXINE SODIUM 75 MCG TABLET PO (05:45)
[2024-03-01] MEDS: OXYCODONE HCL 5 MG TABLET 10 MG PO (06:09)
[2024-03-01] MEDS: ACETAMINOPHEN 500 MG TABLET 1000 MG PO ×2 (06:09→12:44)
[2024-03-01 06:19] LABS: Basophils Percent Auto 0.1 % (0.2-2.0); Hematocrit 40.6 % (36.0-48.0); Hemoglobin 13.4 g/dL (12.0-16.0); Immature Granulocytes Abs Auto 0.02 10^3/uL (0.00-0.03); Immature Granulocytes Pct Auto 0.2 % (0.0-0.5); Lymphocytes Absolute Auto 0.9 10^3/uL (1.2-3.8); Mean Platelet Volume 9.6 fL (9.5-13.5); Monocytes Absolute Auto 0.1 10^3/uL (0.3-0.8); Monocytes Percent Auto 1.3 % (1.7-12.0); Neutrophils Absolute Auto 9.8 10^3/uL (1.4-6.5); Neutrophils Percent Auto 90.4 % (43.0-75.0); Platelet Count 278 10^3/uL (150-450); Red Blood Count 4.32 10^6/uL (4.20-5.40); Red Cell Distribution Width 12.9 % (11.0-15.0); White Blood Count 10.8 10^3/uL (4.0-11.0)
[2024-03-01 06:30] LABS: Alanine Aminotransferase 38 U/L (14-59); Albumin Globulin Ratio 0.9; Albumin Level 3.4 g/dL (3.4-5.0); Alkaline Phosphatase 54 U/L (46-116); Anion Gap 12.1; Aspartate Amino Transferase 19 U/L (15-37); BUN Creatinine Ratio 9.6; Bilirubin Total 0.5 mg/dL (0.2-1.0); Calcium 9.3 mg/dL (8.5-10.1); Carbon Dioxide 30.8 mmol/L (21.0-32.0); Chloride 104 mmol/L (98-107); Estimated GFR (African America >60 (>=60 mL/min/1.73m^2); Estimated GFR (Non-African Ame >60 (>=60 mL/min/1.73m^2); Globulin 3.6 g/dL; Glucose 164 mg/dL (74-106); Potassium 3.9 mmol/L (3.5-5.1); Sodium 143 mmol/L (136-145)
--- NOTE | 2024-03-01 08:03 | PM.PN ---
Progress Note: Subjective Subjective Interval history: Discussed findings of CTA with patient. No Active PE's but bilateral ground glass opacities. WBC's normal today. Patient remains on 2L via [place] oxygen which is her home dose. Pain in ribs has subsided, no fevers or chills. Patient would like to go home today. She has nebulizer and oxygen at home. Exam Narrative Exam Narrative: General: Patient is alert, and oriented to person, place and time with normal affect, proper hygiene Skin: no visible rashes, or ulcers Head: atraumatic, acephalic Eyes: PERRLA, no nystagmus present, conjunctiva clear, no scleral icterus Ears: normal gross auditory acuity Neck: no masses palpated, normal thyroid Heart: Normal rate and rhythm, no murmurs/rubs/gallops Lungs: no audible wheezes Abdomen: Normal audible bowel sounds, no distension, No palpable masses, no organomegaly, no rebound/guarding/ or rigidity Musculoskeletal: no swelling bilateral lower extremities Neuro: CN II-X grossly intact Constitutional Vital Signs, click to edit/add: Last Vital Signs Temp 97.9 F 03/01/24 07:45 Pulse 97 H 03/01/24 07:48 Resp 18 03/01/24 07:45 BP 107/71 03/01/24 07:45 Pulse Ox 98 03/01/24 07:48 O2 Del Method Nasal Cannula 03/01/24 07:45 O2 Flow Rate 2 03/01/24 07:45 Progress Note: Objective Labs Labs: Short CBC 02/29/24 03/01/24 Range/Units 12:59 05:50 WBC 16.6 H 10.8 (4.0-11.0) 10^3/uL Hgb 14.3 13.4 (12.0-16.0) g/dL Hct 43.5 40.6 (36.0-48.0) % Plt Count 288 278 (150-450) 10^3/uL BMP 02/29/24 03/01/24 12:59 05:50 Sodium 141 143 Potassium 4.0 3.9 Chloride 103 104 Carbon Dioxide 29.1 30.8 BUN 8.0 7.0 Creatinine 0.80 0.73 Glucose 111 H 164 H Calcium 8.9 9.3 Liver Function 03/01/24 Range/Units 05:50 Total Bilirubin 0.5 (0.2-1.0) mg/dL AST 19 (15-37) U/L ALT 38 (14-59) U/L Alkaline Phosphatase 54 (46-116) U/L Albumin 3.4 (3.4-5.0) g/dL Progress Note: A&P Assessment and Plan (1) Left lower lobe pneumonia: Assessment and Plan: as seen on chest X-ray, treat with duonebs, pulmicort, OPEP, Levaquin IV and rocephin IV. Monitor oxygen saturations closely given history of restrictive lung disease and recent Bronchoscopy and risk of serious complications/deteriorations. Covid and flu testing negative. In the setting of severe right sided rib/lung pain, and hypoxia, I got CTA of the Chest which showed bilateral ground glass opacities, no acute PE. Patient uses 2L NC at home and she is back to baseline, no further lung pain. She would like to go home today. She will be discharged on Levaquin 750mg PO Daily x 5 days and prednisone 20mg BID x 7 days. She will return to the ER with any worsening signs or symptoms. Qualifiers: Pneumonia type: due to unspecified organism Qualified Code(s): J18.9 - Pneumonia, unspecified organism (2) Acute respiratory failure with hypoxia: Assessment and Plan: secondary to #1, lactate normal, leukocytosis; sepsis ruled out. continue with oxygen therapy. 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
[2024-03-01] MEDS: GABAPENTIN 300 MG CAPSULE 600 MG PO (09:06)
[2024-03-01] MEDS: CEFTRIAXONE 1,000 MG in 0.9 % SODIUM CHLORIDE 50 ML 100 MG IV (09:06)
[2024-03-01] MEDS: ATENOLOL 50 MG TABLET PO (09:06)
[2024-03-01] MEDS: OMEPRAZOLE 40 MG CAPSULE.DR PO (09:06)
[2024-03-01] MEDS: BUDESONIDE 0.5 MG/2 ML AMPULE NEB IH (11:00)
--- NOTE | 2024-03-01 13:37 | PM.DS1 ---
DS: Providers Provider Date of admission: 02/29/24 16:04 Primary care physician: Non-Staff PhysicianMD Attending physician on admission: Katarzyna Antony Discharging clinician: Katarzyna Antony DS: Diagnosis Discharge Diagnosis (1) Left lower lobe pneumonia: Qualifiers: Pneumonia type: due to unspecified organism Qualified Code(s): J18.9 - Pneumonia, unspecified organism (2) Acute respiratory failure with hypoxia: (3) Pleuritic chest pain: (4) Hypothyroid: Qualifiers: Hypothyroidism type: unspecified Qualified Code(s): E03.9 - Hypothyroidism, unspecified (5) Restrictive lung disease: (6) Chemotherapy-induced neuropathy: (7) Insomnia: Qualifiers: Insomnia type: unspecified Qualified Code(s): G47.00 - Insomnia, unspecified (8) Tachycardia: (9) History of pulmonary embolism: DS: Summary Hospital Course Hospital Course: Please see progress note dated 03/01/24. Patient recovered faster than anticipated given the severity of her disease. Status at Discharge Functional status at discharge: independent ambulation Overall status at discharge: patient is back to baseline Time Spent with Patient Time attestation: Total time spent providing and/or coordinating discharge services: Time spent: greater than 30 minutes Exam Narrative Exam Narrative: no changes in exam from the progress note exam dated 03/01/24 Constitutional Vital Signs, click to edit/add: Last Vital Signs Temp 97.9 F 03/01/24 07:45 Pulse 104 H 03/01/24 12:00 Resp 18 03/01/24 07:45 BP 107/71 03/01/24 07:45 Pulse Ox 98 03/01/24 12:00 O2 Del Method Nasal Cannula 03/01/24 11:15 O2 Flow Rate 2 03/01/24 11:15 DS: Data Data Completed and Pending Labs on day of discharge: Labs from last 24 hours 03/01/24 02/29/24 02/29/24 05:50 15:33 13:01 WBC 10.8 RBC 4.32 Hgb 13.4 Hct 40.6 MCV 94.0 MCH 31.0 MCHC 33.0 RDW 12.9 Plt Count 278 MPV 9.6 Neut % (Auto) 90.4 H Lymph % (Auto) 8.0 L [place] % (Auto) 1.3 L Eos % (Auto) 0.0 L Baso % (Auto) 0.1 L Neut # (Auto) 9.8 H Lymph # (Auto) 0.9 L [place] # (Auto) 0.1 L Eos # (Auto) 0.0 Baso # (Auto) 0.0 Abs Immat Gran (auto) 0.02 Imm/Tot Granulo (auto) 0.2 Sodium 143 Potassium 3.9 Chloride 104 Carbon Dioxide 30.8 Anion Gap 12.1 BUN 7.0 Creatinine 0.73 Est GFR ( Amer) >60 Est GFR (Non-Af Amer) >60 BUN/Creatinine Ratio 9.6 Glucose 164 H Lactate 1.2 Calcium 9.3 Magnesium 1.7 L Total Bilirubin 0.5 AST 19 ALT 38 Alkaline Phosphatase 54 Troponin I High Sens Total Protein 7.0 Albumin 3.4 Globulin 3.6 Albumin/Globulin Ratio 0.9 Influenza Type A Ag Negative Influenza Type B Ag Negative SARS-CoV-2 Ag (CV2AG) Negative 02/29/24 12:59 WBC RBC Hgb Hct MCV MCH MCHC RDW Plt Count MPV Neut % (Auto) Lymph % (Auto) [place] % (Auto) Eos % (Auto) Baso % (Auto) Neut # (Auto) Lymph # (Auto) [place] # (Auto) Eos # (Auto) Baso # (Auto) Abs Immat Gran (auto) Imm/Tot Granulo (auto) Sodium 141 Potassium 4.0 Chloride 103 Carbon Dioxide 29.1 Anion Gap 12.9 BUN 8.0 Creatinine 0.80 Est GFR ( Amer) >60 Est GFR (Non-Af Amer) >60 BUN/Creatinine Ratio 10.0 Glucose 111 H Lactate Calcium 8.9 Magnesium Total Bilirubin AST ALT Alkaline Phosphatase Troponin I High Sens 10.7 Total Protein Albumin Globulin Albumin/Globulin Ratio Influenza Type A Ag Influenza Type B Ag SARS-CoV-2 Ag (CV2AG) Discharge Plan Discharge Disposition: Home, Self-Care Condition: Fair Discharge Medications: New levofloxacin 750 mg tablet 750 mg PO DAILY 5 Days Qty: 5 0RF prednisone 20 mg tablet 20 mg PO BID 7 Days Qty: 14 0RF Continued atenolol 50 mg tablet 50 mg PO BID gabapentin 300 mg capsule 600 mg PO BID Patient Comments: PER PATIENT: NOT TAKING TID, ONLY TAKES BID lorazepam 0.5 mg tablet 0.5 mg PO QID PRN (Reason: anxiety) oxycodone 10 mg tablet 10 mg PO Q8H PRN (Reason: pain) Xarelto 10 mg tablet 10 mg PO BEDTIME cyclobenzaprine 10 mg tablet 10 mg PO BID PRN (Reason: muscle spasm) levothyroxine 75 mcg tablet 75 mcg PO .QD escitalopram oxalate 10 mg tablet 10 mg PO BEDTIME dexlansoprazole 30 mg capsule,biphase delayed releas 30 mg PO DAILY prochlorperazine maleate 10 mg tablet 10 mg PO Q6H PRN (Reason: nausea and vomiting) trazodone 150 mg tablet 150 mg PO BEDTIME PRN (Reason: insomnia) Activity: increase activity as tolerated and wear oxygen at all times Activity Detail: 2L via [place] oxygen Diet: advance to your usual diet Print Language: Iraqi Forms: Portal Instructions Follow Up Appointments: Please Keep [facility] follow up's with pulmonary, Cardiology
--- NOTE | 2024-03-02 14:30 | CM.DCFOLLOWU ---
03/02- 1st attempt. No answer
--- NOTE | 2024-03-03 14:48 | CM.DCFOLLOWU ---
Person spoke with: Pat How are you feeling? Much better How is your pain? No pain Did you understand your discharge instructions? Yes Do you have any questions about your discharge instructions? No Were you given any prescriptions at discharge? Yes Were you able to get your prescriptions filled? Yes Do you understand how to take your medications as ordered? Yes Do you have any questions about your follow up appointment and do you plan to keep your follow up appointment? No they are scheduled with [facility] Is there anything else that you would like to discuss? No Questions/Comments/Concerns/Other:
== END 2024-03-01 14:26 | disposition home or self-care (01) ==
LOC: ER 15:32 → MS 03-01 11:38
PROVIDERS: Admitting Provider Family Medicine; Emergency Provider Emergency Medicine; Visit Provider Family Medicine
DX: J18.9 Pneumonia, unspecified organism (principal); R50.9 Fever, unspecified; C81.90 Hodgkin lymphoma, unspecified, unspecified site; J98.4 Other disorders of lung; G62.2 Polyneuropathy due to other toxic agents; T45.1X5A Adverse effect of antineoplastic and immunosuppressive drugs, initial encounter; K21.9 Gastro-esophageal reflux disease without esophagitis; E03.9 Hypothyroidism, unspecified; G47.00 Insomnia, unspecified; F41.9 Anxiety disorder, unspecified; F32.A Depression, unspecified; J96.01 Acute respiratory failure with hypoxia; Z79.01 Long term (current) use of anticoagulants; Z86.711 Personal history of pulmonary embolism; Z94.84 Stem cells transplant status; R00.0 Tachycardia, unspecified; Z99.81 Dependence on supplemental oxygen; R07.81 Pleurodynia
CPT/HCPCS: 36415; 71045; 71275; 80048; 80053; 83605; 83735; 84484; 85025; 87040; 87804; 87811; 93005; 94640; 94667; 94668; 94761; 96365; 96375; 99285; J0456; J0696; J1171; J2405; J2919; Q0164; Q9967

== ENCOUNTER 2024-07-05 19:52 | Emergency (ER) | payer MEDICARE, MEDICAID, SELFPAY ==
[2024-07-05] VITALS (31 sets, daily range): BP systolic 102–122; BP diastolic 78–97; PULSE 91–113; TEMP 36.5; O2SAT 87–99; BMI 28.5
--- NOTE | 2024-07-05 20:00 | ECG_ITS ---
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 Measurements Intervals [place] Rate: 97 P: 71 ID: [id number] QRS: -42 QRSD: 102 T: 108 QT: 366 QTc: 421 Interpretive Statements 1100 Sinus rhythm 3114 Cannot rule out anterior myocardial infarction, age undetermined [address] depression, possible subendocardial injury Inferior myocardial infarction, age undetermined 4564 Tw[place] abnormality, possible lateral ischemia 7200 Abnormal left axis deviation 9150 abnormal ECG Compared to ECG 02/29/2024 12:52:09 Myocardial infarct finding now present ST (T wave) deviation now present Possible ischemia now present Electronically Signed On 07-06-2024 8:04:59 EDT by TREY HDZ M.D.
--- OUTSIDE RECORDS SUMMARY | 2024-07-05 20:02 | XMS_ITS | CCD ---
Author Organization [facility] Care Team Providers Care Press Writer Name Role Phone Mary RODRIGUEZ, Abdo Unavailable Genna RODRIGUEZ, Bee A Primary Care Provider Marilyn Hughes RN Unavailable Mary RODRIGUEZ, Abdo Unavailable Juan R WALL, Kristina Unavailable Unavailable Emely HEAT READER.Irene VASQUEZ Unavailable Kylie Johnson Unavailable Mary RODRIGUEZ, Abdo Unavailable Genna RODRIGUEZ, Bee A Primary Care Provider Marilyn Hughes RN Unavailable Mary RODRIGUEZ, Abdo Unavailable Juan R WALL, Kristina Unavailable Unavailable Emely HEAT READER.Irene VASQUEZ Unavailable Kylie Mosher RN Unavailable Unavail able Genna RODRIGUEZ, Bee A Primary Care Provider Mary RODRIGUEZ, Abdo Unavailable Genna RODRIGUEZ, Bee A Primary Care Provider Marilyn Hughes RN Unavailable Mary RODRIGUEZ, Abdo Unavailable Juan R WALL, Kristina Unavailable Unavailable Emely HEAT READER.Irene VASQUEZ Unavailable Kylie Mosher RN Unavailable Unavail able DR MARIELENA CHAVIRA Primary Care Unavailable IGLESIA BLAKELY Admitting Unavailable IGLESIA BLAKELY Attending Unavailable IGLESIA BLAKELY Consulting Unavailable CONG ALMANZAR Consulting Unavailable DR MARIELENA CHAVIRA Primary Care Unavailable PAY ., DR PARHAM Admitting Unavailable PAY ., DR PARHAM Attending Unavailable BITA ., ZAIRA Consulting Unavailable Emely HEAT READER.SEWAGE DISPOSAL ENGINEER, Irene Unavailable Juan R WALL, Kristina Unavailable Unavailable Emely HEAT READER.SEWAGE DISPOSAL ENGINEER, Irene Unavailable [phone] Nomi WALL, Kylie Patel Unavailable Unavail able IRENE HAN Attending Unavailable GENNA, BEE A Primary Care Unavailable IRENE HAN Attending Unavailable VAIL, BEE A Primary Care Unavailable GENNA, BEE A Primary Care Unavailable IRENE HAN Referring Unavailable Mary RODRIGUEZ Abdo Unavailable Glenys Vail MDecca A Primary Care Provider Mary RODRIGUEZ, Antoineo Unavailable Keke Bright Unavailable MD Glenys Vailecca A Primary Care Provider OSCAR Bright Attending Provider Genna RODRIGUEZ Bee A Primary Care Provider Darien RODRIGUEZ, Ruperto Pacheco Unavailable [place] HEAT READER.SEWAGE DISPOSAL ENGINEER, Ellyn Unavailable [place] HEAT READER.SEWAGE DISPOSAL ENGINEER, Ellyn Unavailable Alex GODWIN, Fabiana Unavailable Unavailable Keke Bright Attending Unavailable Keke Bright Admitting Unavailable Genna, Bee A Primary Care Unavailable Genna RODRIGUEZ Bee A Unavailable Genna RODRIGUEZ Bee A Primary Care Provider Genna RODRIGUEZ Bee A Primary Care Provider [place] HEAT READER.SEWAGE DISPOSAL ENGINEER, Ellyn Unavailable [place] HEAT READER.SEWAGE DISPOSAL ENGINEER, Ellyn Unavailable Mary RODRIGUEZ, Abdo Unavailable Genna RODRIGUEZ Bee A Primary Care Provider Mary RODRIGUEZ, Abdo Unavailable Marilyn Hughes RN Unavailable Unavailable Juan R RN, Kristina Sales Unavailable Unavailabl e Genna RODRIGUEZ, Bee A Unavailable [phone] Araceli HEAT READER.SEWAGE DISPOSAL ENGINEERSheila Unavailable Krishna HEAT READER.SEWAGE DISPOSAL ENGINEER, Ellyn Unavailable MEHUL, JANI Referring Unavailable VAIL, BEE A Primary Care Unavailable PELFREY, CAROLE Referring Unavailable VAIL, BEE A Primary Care Unavailable ANIL FRANCO (JAYLA) Referring Unavailable VAIL, BEE A Primary Care Unavailable ANIL FRANCO (JAYLA) Referring Unavailable VAIL, BEE A Primary Care Unavailable MEHUL, JANI Referring Unavailable VAIL, BEE A Primary Care Unavailable VAIL, BEE A Primary Care Unavailable PLESCA, CAL Admitting Unavailable CARLOS CASTELLON Attending Unavailable CHINO, SHEELA Referring Unavailable VAIL, BEE A Primary Care Unavailable KIRUPAHARAN, PRADHAB Referring Unavailable VAIL, BEE A Primary Care Unavailable SHEILA LIN Attending Unavailable RAMBASEGABRIELLE Roberson Attending Unavailable ELLYN KELLER Attending Unavailable VENESHEILA TOVAR Attending Unavailable VENEMANSHEILA Attending Unavailable VENEMANSHEILA Attending Unavailable RAMBASEGABRIELLE Roberson Attending Unavailable VENEMANSHEILA Attending Unavailable RAMBASEGABRIELLE Roberson Attending Unavailable KODI PANTOJA G Referring Unavailable BERENGERKODI G Attending Unavailable VAIL, BEE A Primary Care Unavailable KIRUPAHARAN, PRADHAB Attending Unavailable VAIL, BEE A Primary Care Unavailable MEHUL, JANI Referring Unavailable IRENE HAN Attending Unavailable VAIL, BEE A Primary Care Unavailable IRENE HAN Attending Unavailable VAIL, BEE A Primary Care Unavailable MILLER, KYLIE Referring Unavailable VAIL, BEE A Primary Care Unavailable MILLER, KYLIE Referring Unavailable VAIL, BEE A Primary Care Unavailable MILLER, KYLIE Referring Unavailable VAIL, BEE A Primary Care Unavailable VAIL, BEE A Primary Care Unavailable MEHUL, JANI Referring Unavailable KORINA VEGA Referring Unavailable VAIL, BEE A Primary Care Unavailable ANIL FRANCO Attending Unavailable ANIL FRANCO Referring Unavailable VAIL, BEE A Primary Care Unavailable IRENE HAN Attending Unavailable VAIL, BEE A Primary Care Unavailable IRENE HAN Referring Unavailable LEENA, SIMIN Attending Unavailable VAIL, BEE A Primary Care Unavailable PELFREY, CAROLE Referring Unavailable VAIL, BEE A Primary Care Unavailable IRENE HAN Attending Unavailable VAIL, BEE A Primary Care Unavailable IRENE HAN Attending Unavailable VAIL, BEE A Primary Care Unavailable VAIL, BEE A Primary Care Unavailable VAIL, BEE A Primary Care Unavailable VAIL, BEE A Referring Unavailable MEHUL, JANI Attending Unavailable EMELYIRENE Attending Unavailable VAIL, BEE A Primary Care Unavailable MILLER, KYLIE Attending Unavailable VAIL, BEE A Primary Care Unavailable VAIL, BEE A Primary Care Unavailable ELLYN LOPEZ Attending Unavailable VAIL, BEE IFRAH Referring Unavailable VAIL, BEE A Primary Care Unavailable MILLER, KYLIE Referring Unavailable VAIL, BEE A Primary Care Unavailable ELLYN LOPEZ Referring Unavailable VAIL, BEE A Primary Care Unavailable MILLER, KYLIE Referring Unavailable MILLER, KYLIE Attending Unavailable VAIL, BEE A Primary Care Unavailable MILLER, KYLIE Referring Unavailable VAIL, BEE A Primary Care Unavailable MILLER, KYLIE Referring Unavailable VAIL, BEE A Primary Care Unavailable ANIL FRANCO Referring Unavailable VAIL, BEE A Primary Care Unavailable VAIL, BEE A Primary Care Unavailable MILLER, KYLIE Attending Unavailable SELF Referring Unavailable VAIL, BEE A Primary Care Unavailable BERENGER KODI G Referring Unavailable BERENGER, KODI G Attending Unavailable VAIL, BEE A Primary Care Unavailable IRENE HAN Attending Unavailable BERENGER, KODI G Referring Unavailable VAIL, BEE A Primary Care Unavailable KORINA VEGA Attending Unavailable PELFREY, CAROLE Referring Unavailable VAIL, BEE A Primary Care Unavailable VAIL, BEE A Referring Unavailable MEHUL, JANI Attending Unavailable VAIL, BEE A Primary Care Unavailable LEENA, SIMIN Referring Unavailable VAIL, BEE A Primary Care Unavailable RUPERTO LEDEZMA Referring Unavailable VAIL, BEE A Primary Care Unavailable RUPERTO LEDEZMA Attending Unavailable RUPERTO LEDEZMA Referring Unavailable VAIL, BEE A Primary Care Unavailable RUPERTO LEDEZMA Referring Unavailable BEE VAIL A Primary Care Unavailable BEE VAIL Referring Unavailable RUPERTO LEDEZMA Attending Unavailable YISEL VAILCA Mikayla Primary Care Unavailable CAROLE RUANO Attending Unavailable VAIL, BEE A Referring Unavailable VAIL, BEE A Primary Care Unavailable IRENE HAN Attending Unavailable VAIL, BEE A Primary Care Unavailable SHERLY BRUNER Attending Unavaila ble SHERLY BRUNER Referring Unavaila ble GENNA BEE A Primary Care Unavailable Allergies Allergy Classification Reported Allergen(s) Allergy Type Date of Onset Reaction(s) Facility Chlorhexidine (3 sources) Chlorhexidine Drug Allergy 4 Itching [facility] Sulfonamides (antibiotic) (3 sources) Sulfonamides (Antibiotic) Drug Allergy 2 Rash [facility] Work Phone: (20 sources) Chlorhexidine; Translations: [CHLORHEXIDINE] Drug Allergy 4 Itching, Unknown [facility] Work Phone: (20 sources) Sulfonamides (Antibiotic); Translations: [SULFA (SULFONAMIDE ANTIBIOTICS)] Drug Allergy 2 Rash, Unknown [facility] Work Phone: (2 sources) Sulfacetamide / Sulfur Drug Allergy rash [employer] Other (1 source) Sulfonamides (Antibiotic) Drug allergy (disorder) [facility] Repository (1 source) Sulfacetamide Drug Allergy [address] [place] [address] Repository (1 source) Sulfur Drug Allergy [address] [place] [address] Repository Medications Current Medications Medication Drug Class(es) Dates Sig (Normalized) Sig (Original) albuterol 0.833 mg/ml / ipratropium bromide 0.167 mg/ml inhalation solution (20 sources) Anticholinergic, beta2-Adrenergic Agonist Start: 05-31-2023 End: 05-31-2023 ipratropium-albute rol 3 mL nebulizer solution (DUONEB) Start: 05-14-2023 End: 05-27-2024 ipratropium-albuterol (Duo-N eb) 0.5-2.5 mg/3 mL nebulizer solution Indications: Asthma, unspecified asthma severity, unspecified whether complicated, unspecified whether persistent ([facility]) Take 3 mL by nebulization every 6 (six) hours 180 mL 3 05/28/2024 Active Start: 06-15-2022 End: 05-29-2023 take 3 mL by inhalation every six hours as needed for wheezing ipratropium-albuterol (DUONEB) 0.5 mg-3 mg(2.5 mg base)/3 mL nebu Indications: Dyspnea on exertion Inhale 3 mL as instructed every 6 hours as needed for wheezing/shortness of breath. 540 mL 1 06/15/2022 05/14/2023 Discontinued Comment on above: Inhale 3 mL as [...] albuterol-budesonid e HFA (AIRSUPRA) 90-80 mcg/actuation inhaler (20 sources) Start: 09-12-19 albuterol-budesoni de HFA (AIRSUPRA) 90-80 mcg/actuation inhaler [...] on above: Take 1 tablet by jaleesa twice daily for 7 days. atenolol 50 mg oral tablet (20 sources) beta-Adrenergic Tyrone Start: 08-30-19 18 take 1 tablet by mouth twice daily atenolol (Tenormin) 50 MG tablet Indications: Tachycardia TAKE 1 TABLET BY MOUTH TWICE A DAY 180 tablet 3 09/15/2023 Active Atenolol Active Comment on above: take 1 tablet by jaleesa th twice a day baclofen 5 mg oral tablet (20 sources) gamma-Aminobutyric Acid-ergic Agonist Start: 07-31-2021 End: 2023 take 1 tablet by mouth in the morning, then take 1 tablet by mouth in the evening, then take 1 tablet by mouth at bedtime baclofen (Lioresal) 5 MG tablet Take 5 mg by mouth in the morning and 5 mg in the evening and 5 mg before bedtime. 08/06/2022 Active Start: 07-31-2021 take 1 tablet by [...] daily. 90 tablet 2 04/12/2021 2021 Active Start: 01-11-2021 End: 03-10-2021 take 1 tablet by mouth twice daily baclofen (LIORESAL) 5 mg tablet Indications: Muscle cramps , Nodular sclerosis classical Hodgkin lymphoma (HCC) take 1 tablet by mouth twice a day 60 tablet 1 01/11/2021 03/10/2021 Discontinued Comment on above: Take 1 tablet by jaleesa th three times daily. take 1 tablet by jaleesa th three times a day Take 1 tablet by jaleesa th twice daily. Take 1 tablet by jaleesa th three times a day. bifidobacterium animalis [id number] unt / lactobacillus acidophilus [id number] unt oral capsule (20 sources) Start: 10-03-2021 Probiotic Product (Probiotic Daily) capsule 1 (one) time each day at the same time. 10/03/2021 Active biotin 2.5 mg oral capsule [...] oral tablet (20 sources) Muscle Relaxant Start: 01-14-20 End: 07-07-19 take 1 tablet by mouth three times daily as needed for muscle spasms cyclobenzaprine (FLEXERIL) 10 mg tablet Indications: Muscle cramps , Nodular sclerosing Hodgkin's lymphoma, unspecified body region (HCC) TAKE 1 TABLET BY MOUTH THREE TIMES A DAY NEEDED FOR MUSCLE SPASM 90 tablet 2 04/07/2024 07/06/2024 Active Start: 2023 End: 01-13-2024 take 1 tablet by mouth twice daily as needed for muscle spasms cyclobenzaprine (FLEXERIL) 10 mg tablet Indications: Muscle cramps , Nodular sclerosing Hodgkin's lymphoma, unspecified body region (HCC) Take 1 tablet by mouth two times a day as needed for muscle spasm. 60 tablet 12/09/2023 01/13/2024 Discontinued Start: 08-10-2022 End: 2023 take 1 tablet by mouth three times daily as needed for muscle spasms cyclobenzaprine (FLEXERIL) 10 mg tablet Indications: Muscle cramps , Nodular sclerosing Hodgkin's lymphoma, unspecified body region (HCC) Take 1 tablet by mouth three times a day as needed for muscle spasm. 90 tablet 1 01/07/2023 02/04/2023 Discontinued Start: 05-07-2022 End: 08-05-2022 take 1 tablet [...] three times daily as needed. 90 tablet 2021 09/03/2021 Discontinued Start: 02-07-2021 End: 03-14-2021 cyclobenzaprine (FLEXERIL) 1 0 mg tablet Indications: Muscle cramps , Nodular sclerosing Hodgkin's lymphoma, unspecified body region (HCC) Take 1 tablet by mouth three times daily as needed (may increase to 3 times daily for severe muscle cramping). 90 tablet 02/07/2021 03/14/2021 Discontinued Comment on above: Take 1 tablet by jaleesa th three times daily as needed. Take 1 tablet by jaleesa th three times daily as needed for muscle spasm. Take 1 tablet by jaleesa th three times a day as needed for muscle spasm. dexlansoprazole 30 mg delayed release oral capsule (20 sources) Proton Pump Inhibitor Start: 01-07-20 take 1 capsule by mouth once daily dexlansoprazole (Dexilant) [address] capsule Indications: Gastroesophageal reflux disease, unspecified whether esophagitis present Take 1 capsule (30 mg) by mouth Daily Do not crush or chew. 90 capsule 2 01/07/2024 Active Start: 07-20-2019 End: 06-10-2023 take 1 capsule by mouth once daily Dexlansoprazole (DEXILANT) 30 mg CpDM Take 1 capsule by mouth once daily. 60 capsule 6 07/20/2019 06/10/2023 Discontinued Dexilant Active Comment on above: Take 1 capsule by mo [facility] once daily. doxycycline hyclate 100 mg oral capsule (20 [...] capsule by mouth twice daily. 20 capsule 07/26/2022 09/13/2022 Discontinued Start: 06-04-2022 End: 06-11-2022 [...] above: Take 1 capsule by mo uth once daily. Take 1 capsule by mo uth twice daily for 7 days. Take 1 capsule by mo uth twice daily. Take 1 capsule by mo uth two times a day for 5 days. DULoxetine 30 mg delayed release oral capsule (9 sources) Serotonin and Norepinephrine Reuptake Inhibitor Start: take 1 capsule by mouth once daily DULoxetine (Cymbalta) [address] capsule Indications: Anxiety , Major depressive disorder, single episode, mild (HCC) (CMS/HCC) , Neuropathy TAKE 1 CAPSULE (30 MG) BY MOUTH DAILY DO NOT CRUSH OR CHEW. 90 capsule 3 07/05/2024 Active Start: 06-08-2024 End: 07-05-2024 take 1 capsule by mouth once daily DULoxetine (Cymbalta) [address] capsule Indications: Anxiety , Major depressive disorder, single episode, mild (HCC) (CMS/HCC) , Neuropathy Take 1 capsule (30 mg) by mouth Daily Do not crush or chew. 30 capsule 2 06/08/2024 07/05/2024 Discontinued Start: 04-12-2021 End: 05-17-2021 take 1 capsule by mouth once daily for anxiety DULoxetine (CYMBALTA) 30 mg capsule Indications: Encounter for palliative care , Anxiety Take 1 capsule by mouth once daily. 30 capsule 1 04/12/2021 05/17/2021 Discontinued Comment on above: Take 1 capsule by mo uth once daily. escitalopram 20 mg oral tablet (20 sources) Serotonin Reuptake Inhibitor Start: End: take 0.5 tablet by mouth once daily escitalopram (Lexapro) 20 MG tablet Indications: Anxiety Take 0.5 tablets (10 mg) by mouth Daily 90 tablet 3 06/08/2024 06/08/2024 Discontinued (Ineffective) Start: 03-11-2024 End: 06-08-2024 take 1 tablet by mouth once daily escitalopram (Lexapro) 20 MG tablet Indications: Anxiety Take 1 tablet (20 mg) by mouth Daily 90 tablet 3 03/11/2024 06/08/2024 Discontinued (Dose adjustment) Start: 09-30-2023 End: 03-28-2024 take 1 tablet by mouth once daily escitalopram oxalate (LEXAPRO) 10 mg tablet Take 1 tablet by mouth once daily. 90 tablet 12/19/2023 Active Start: 09-19-2023 End: 12-18-2023 take 0.5 tablet by mouth once daily escitalopram oxalate (LEXAPRO) 10 mg tablet Take 0.5 tablets by mouth once daily. 45 tablet 09/19/2023 Active fluconazole 100 mg oral tablet (3 sources) Azole Antifungal Start: 06-13-2023 End: 06-20-2023 take 1 tablet by mouth once daily fluconazole (DIFLUCAN) 100 mg tablet Indications: Oral thrush Take 1 tablet by mouth once daily for 7 days. 7 tablet 0 06/13/2023 06/20/2023 Active fluocinonide 0.5 mg/ml topical cream (20 sources) Corticosteroid Start: 04-09-2024 End: 04-08-2024 fluocinonide (Lidex) 0.05 % cream Indications: Dermatitis Apply 1 application topically in the morning and 1 application before bedtime. 60 g 04/09/2024 Active Start: 01-19-2021 fluocinonide ( LIDEX) 0.05 % cream apply to affected area ON THE RIGHT HAND and legs TWICE A DAY 120 g 2 01/19/2021 Active Comment on above: apply to affected ar ea ON THE RIGHT HAND and legs TWICE A DAY fluticasone-umeclid in-vilanter (TRELEGY ELLIPTA) 200-62.5-25 mcg inhalation powder (20 sources) Start: End: take 1 puff(s) by inhalation once daily fluticasone-umeclidin -vilanter (TRELEGY ELLIPTA) 200-62.5-25 mcg inhalation powder Indications: Dyspnea on exertion , Bronchitis Inhale 1 Puff as instructed once daily. 60 Each 3 08/23/2023 11/21/2023 Discontinued Start: 08-23-2023 take 1 puff(s) by inhalation once daily zplghymxauy-xtsmyesbb-zeduseyx (TRELEGY ELLIPTA) 200-62.5-25 mcg inhalation powder Indications: Dyspnea on exertion , Bronchitis Inhale 1 Puff as instructed once daily. 60 Each 3 08/23/2023 Active Start: 06-17-2023 End: 08-22-2023 take 1 puff(s) by inhalation once daily logmxfsikgf-vbyynwoxs-ytbrlfla (TRELEGY ELLIPTA) 200-62.5-25 mcg inhalation powder Indications: Dyspnea on exertion , Bronchitis Inhale 1 Puff as instructed once daily. 60 Each 3 06/17/2023 08/22/2023 Discontinued Start: 06-17-2023 take 1 puff(s) by inhalation once daily cbvxgyyamxq-hnihqkuww-jnfyqjwp (TRELEGY ELLIPTA) 200-62.5-25 mcg inhalation powder Indications: Dyspnea on exertion , Bronchitis Inhale 1 Puff as instructed once daily. 60 Each 3 06/17/2023 Active gabapentin 300 mg oral capsule (20 sources) Anti-epileptic Agent Start: 08-26-2023 End: 03-13-2024 take 2 capsules by mouth in the morning, then take 2 capsules by mouth in the evening, then take 2 capsules by mouth at bedtime gabapentin (Neurontin) 300 MG capsule Indications: Nerve pain Take 2 capsules (600 mg) by mouth in the morning and 2 capsules (600 mg) in the evening and 2 capsules (600 mg) before bedtime. 270 capsule 3 03/13/2024 Active Start: 12-31-2022 take 1 capsule by [...] bedtime. 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 Take 2 capsules by m outh three times a day for 90 days. ipratropium bromide 0.042 mg/actuat metered dose nasal spray (13 sources) Anticholinergic Start: 04-08-19 End: 07-08-19 take 2 spray(s) nasal route in the morning, then take 2 spray(s) nasal route in the evening, then take 2 spray(s) nasal route at bedtime ipratropium (Atrovent) 0.06 % nasal spray Indications: Chronic rhinitis Administer 2 sprays into each nostril in the morning and 2 sprays in the evening and 2 sprays before bedtime. 15 mL 11 04/08/2024 07/07/2024 Active ketoconazole 20 mg/ml topical cream (20 sources) Azole Antifungal Start: 02-14-20 ketoconazole (NIZOral) 2 % cream Apply 1 application topically 1 (one) time each day at the same time. 02/13/2022 Active Lactobac no.41/Bifidobact no.7 (PROBIOTIC-10 ORAL) [...] mg oral tablet (20 sources) l-Thyroxine Start: 05-02-2024 take 1 tablet by mouth before mealtime levothyroxine (Synthroid, Levoxyl) 75 MCG tablet Indications: Acquired hypothyroidism (CMS/HCC) Take 1 tablet (75 mcg) by mouth in the morning. Take before meals. 90 tablet 3 05/02/2024 Active Start: 10-12-2019 End: 08-14-2023 take 1 tablet [...] mg oral tablet (20 sources) Benzodiazepine Start: End: take 1 tablet by mouth four times daily as needed for anxiety LORazepam (Ativan) 0.5 MG tablet Indications: Anxiety Take 1 tablet (0.5 mg) by mouth 4 (four) times a day as needed for anxiety 120 tablet 2 05/11/2024 Active Start: 11-11-2022 End: 12-01-2022 take 1 [...] 2 at bedtime if needed 120 tablet 07/25/2022 08/22/2022 Start: 06-12-2022 End: 07-03-2022 take [...] 120 tablet 0 2021 08/08/2021 Active Start: 10-14-2020 End: 06-14-2021 take 1 tablet by mouth [...] needed 120 tablet 0 05/17/2021 06/14/2021 Active Start: 10-27-2019 End: 04-12-2021 take 1 tablet by mouth three times daily as needed LORazepam (ATIVAN) 0.5 mg Take 1 tablet by mouth three times daily as needed. 10/27/2019 04/12/2021 Discontinued (Duplicate Entry) Ativan Active Comment on above: take 1 [...] a day if needed for anxiety methylPREDNISolone (8 sources) Corticosteroid Start: 05-04-2024 End: 05-10-2024 methylPREDNISolone (MEDROL, RON,) 4 mg Dose-Pack Take as instructed per package. 21 tablet 05/04/2024 05/10/2024 Active Start: 02-02-2021 methylPREDNISo lone 4 MG as directed Orally Once a day for 6 days Jan, Not-Taking/PRN Start: 03-16-2020 End: 03-15-2021 methylPREDNISolone (MEDROL, RON,) 4 mg Dose-Pack As directed 1 Package 03/16/2020 03/15/2021 Discontinued (Course of therapy completed) mirtazapine 15 mg oral tablet (20 sources) Start: 08-26-2023 End: 02-22-2024 take 1 tablet by mouth at bedtime mirtazapine (Remeron) 15 MG tablet Indications: Major depressive disorder, single episode, mild (HCC) (CMS/HCC) Take 1 tablet (15 mg) by mouth at bedtime 30 tablet 08/26/2023 11/06/2023 Discontinued Start: 05-22-2022 End: 10-17-2023 take 7.5 mg [...] daily at bedtime. 0 05/22/2022 Active Start: 03-02-2020 End: 04-12-2021 take 1 tablet by mouth once daily at bedtime mirtazapine (REMERON) 30 mg tablet Take 1 tablet by mouth daily at bedtime. 90 tablet 1 03/02/2020 04/12/2021 Discontinued (Course of therapy completed) Remeron Active Comment on above: Take 30 mg by mouth daily at bedtime. molnupiravir 200 MG capsule (2 sources) Start: End: take 4 capsules by mouth in the morning molnupiravir 200 MG capsule Indications: COVID-19 Take 4 capsules (800 mg) by mouth in the morning and 4 capsules (800 mg) before bedtime. Do all this for 5 days. Follow instructions about contraceptive use during and after treatment (if of child-bearing potential). 40 capsule 0 03/29/2023 04/03/2023 Active Nebulizer Accessories kit (4 sources) Start: 025 Nebulizer Accessories kit 1 kit every 6 months as needed. 1 kit 3 06/09/2024 Active nitrofurantoin, macrocrystals 25 mg / nitrofurantoin, monohydrate 75 mg oral capsule (1 source) Nitrofuran Antibacterial Start: 023 take 1 capsule by mouth every twelve hours Macrobid 100 MG 1 cap(s) Orally bid for 5 day(s) Jan, Active pantoprazole 40 mg delayed release oral tablet (20 sources) Proton Pump Inhibitor Start: End: take 1 tablet by mouth once daily pantoprazole DR (PROTONIX) 40 mg tablet Take 1 tablet by mouth once daily. 90 tablet 1 05/22/2023 Active Comment on above: Take 1 tablet by jaleesa th once daily. phenazopyridine hydrochloride 200 mg oral tablet (1 [...] 1 tablet by mouth once daily predniSONE (Deltasone) 10 MG tablet Indications: Restrictive lung disease Take 4 tablets (40 mg) by mouth Daily for 3 days, THEN 3 tablets (30 mg) Daily for 3 days, THEN 2 tablets (20 mg) Daily for 3 days, THEN 1 tablet (10 mg) Daily for 3 days. 30 tablet 11/11/2023 11/28/2023 Discontinued Start: 11-11-2023 End: 11-22-2023 take 1 tablet by mouth once daily predniSONE (DELTASONE) 10 mg tablet Take 10 mg by mouth once daily. 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 take 1 tablet by jaleesa th every 6 hours if needed rivaroxaban 10 mg oral tablet (20 sources) Factor Xa Inhibitor Start: End: 4 take 1 tablet by mouth once daily rivaroxaban (Xarelto) 10 MG tablet Indications: Multiple subsegmental pulmonary emboli without acute cor pulmonale (CMS/HCC) Take 1 tablet (10 mg) by mouth Daily 90 tablet 3 11/25/2023 Active take 1 tablet by mouth at mealti co rivaroxaban (Xarelto) 20 MG tablet Take 20 mg by mouth in the evening. Take with meals Take with food. 0 Active Xarelto Active Comment on above: Take 1 tablet by jaleesa th once daily. take 1 tablet by jaleesa th once daily sodium chloride 30 mg/ml inhalation solution (20 sources) Start: 11-21-2023 sodium chloride (NEBUSAL) 3 % nebulizer solution Use 4 mL via nebulizer two times a day. 160 mL 2 11/21/2023 Active Start: 08-01-2022 End: 08-31-2022 sodium chloride (NEBUSAL) 3 % nebulizer solution Indications: Productive cough Use 4 mL via nebulizer twice daily. 240 mL 08/01/2022 08/31/2022 Start: 12-27-2021 End: 03-28-2023 sodium chloride 0.9 % (flush ) 10 mL (BD POSIFLUSH) Comment on above: Use 4 mL via nebuliz er twice daily. 10 actuat tiotropium 0.0025 mg/actuat inhalation spray [...] tartrate 2 mg extended release oral capsule (20 sources) Cholinergic Muscarinic Antagonist Start: End: take 1 capsule by mouth once daily tolterodine ER (DETROL LA) 2 mg 24 hr capsule Take 2 mg by mouth once daily. 08/26/2023 Active traZODone hydrochloride 150 mg oral tablet (20 sources) Serotonin Reuptake Inhibitor Start: traZODone (Desyrel) 150 MG tablet Indications: Primary insomnia Take 1 tablet (150 mg) by mouth as needed at bedtime for sleep 90 tablet 3 06/18/2024 Active Start: 11-28-2023 End: 12-24-2024 traZODone (Desyrel) 150 MG t ablet Indications: Primary insomnia TAKE 1 TABLET (150 MG) BY MOUTH NEEDED AT BEDTIME FOR SLEEP 90 tablet 1 12/25/2023 06/18/2024 Discontinued (Reorder) Start: 05-06-2023 End: 11-28-2023 take 1 tablet by mouth at bedtime traZODone (Desyrel) 50 MG tablet Indications: Primary insomnia take 1 tablet by mouth at bedtime if needed for 90 DAYS 90 tablet 3 05/06/2023 11/28/2023 Discontinued Start: 02-04-2023 End: 11-28-2023 take 1 tablet by mouth every twenty-four hours as needed traZODone (DESYREL) 100 mg tablet Take 100 mg by mouth at bedtime as needed. AT BEDTIME. 09/22/2023 Active End: 10-09-2023 take 2 tablets by [...] AREA TWICE A DAY FOR 5 DAYS 30 actuat umeclidinium 0.0625 mg/actuat / vilanterol 0.025 mg/actuat dry powder inhaler (20 sources) Anticholinergic, beta2-Adrenergic Agonist Start: End: take 1 dose by inhalation once daily ANORO ELLIPTA 62.5-25 mcg/actuation inhaler INHALE 1 INHALATION INSTRUCTED ONCE DAILY. 60 each 1 06/25/2024 Active Start: 11-21-2023 End: 12-02-2023 take 1 dose by inhalation once daily ANORO ELLIPTA 62.5-25 mcg/actuation inhaler INHALE 1 INHALATION INSTRUCTED ONCE DAILY. 60 Each 1 12/02/2023 Active Vitamin B Comp and C No.3 (B COMPLEX PLUS VITAMIN C) 18-80-90-5-300 mg cap (20 sources) Start: 08-11-2019 Vitamin B Comp and C No.3 (B COMPLEX PLUS VITAMIN C) 95-57-70-5-300 mg cap Take 1 tablet by mouth [...] Virus Nucleoside Analog DNA Polymerase Inhibitor Start: 03-22-2020 End: 06-10-2023 take 1 tablet by mouth twice daily acyclovir (ZOVIRAX) 400 mg tablet take 1 tablet by mouth twice a day 180 tablet 3 06/05/2021 05/22/2022 Discontinued Acyclovir Not-Ta quincy/PRN Comment on above: take 1 tablet by jaleesa th twice a day [id number] 200 actuat albuterol 0.09 mg/actuat metered dose [...] THE LUNGS every 6 hours 1 Each 12/15/2020 06/30/2021 Discontinued Start: 11-06-2019 End: 06-15-2022 albuterol (PROVENTIL) 2.5 mg /3 mL (0.083 %) nebulizer solution inhale contents of 1 vial ( 3 milliliters ) in nebulizer by mouth... (REFER TO PRESCRIPTION NOTES). 11/06/2019 06/15/2022 Discontinued (Course of therapy completed) Start: 11-04-2019 End: 03-15-2021 Albuterol Sulfate (ACCUNEB) 1.25 mg/3 mL nebulizer solution Indications: Dyspnea, unspecified type Use 1 Ampule via nebulizer every 6 hours as needed for Wheezing/Shortness of Breath. 120 Vial 11 11/04/2019 03/15/2021 Discontinued Comment on above: inhale contents of 1 [...] daily azelastine 0.1% nasal spray Use 1 [place] in each nostril two times a day. 30 mL 03/28/2023 2023 Discontinued Comment on above: Use 1 [place] in each nostril two times a day. [...] mouth daily for 4 days. 6 tablet 04/19/2023 06/13/2023 Discontinued (Course of therapy completed) [...] tablet by mouth daily for 4 days. betamethasone 3 mg/ml / betamethasone acetate 3 mg/ml injectable suspension (2 sources) Corticosteroid Start: End: betamethasone acetate-betamethason e sodium phosphate 6 mg injection (CELESTONE) chlorhexidine [...] Discontinued Comment on above: To groin daily diclofenac sodium 0.01 mg/mg topical gel (20 sources) Nonsteroidal Anti-inflammatory Drug Start: End: apply 4 g topically four times daily diclofenac (VOLTAREN) 1 % topical gel Indications: Arthritis pain Apply 4 g to affected area four times daily. 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 100 mL 08/27/2019 03/15/2021 Discontinued (Course of therapy completed) fluticasone propionate 0.05 mg/actuat metered dose nasal spray (9 sources) Corticosteroid Start: End: take 1 spray(s) nasal route once daily fluticasone (FLONASE ALLERGY RELIEF) 50 mcg/actuation nasal spray Indications: Acute non-recurrent pansinusitis Use 1 [place] in each nostril once daily. 11.1 mL 1 06/13/2023 2023 Discontinued Start: 02-02-2021 take 1 spray(s) nasa l route once daily as needed Fluticasone Propionate 50 MCG/ACT 1 spray in each nostril Nasally Once a day for 30 day(s) Jan, Not-Taking/PRN Start: 02-02-2021 30 actuat fluticasone furoate 0.2 mg/actuat / vilanterol 0.025 mg/actuat dry powder inhaler (20 sources) Corticosteroid, beta2-Adrenergic Agonist Start: 04-19-2023 End: 06-17-2023 take 1 dose by inhalation once daily fluticasone-vilanterol (BREO ELLIPTA) 200-25 mcg/dose inhaler Indications: Influenza with pneumonia Inhale 1 Inhalation as instructed once daily. 1 Each 3 04/19/2023 06/17/2023 Discontinued Start: 01-21-2023 take 1 puff(s) by in [...] Inhale 1 Inhalation as instructed once daily. hydrocortisone 20 mg oral tablet (20 sources) Corticosteroid Start: End: take 1 tablet by mouth twice daily hydrocortisone (CORTEF) 20 mg tablet Take 1 tablet by mouth two times a day. 60 tablet 1 01/03/2023 05/31/2023 Discontinued (Course of therapy completed) Comment on above: Take 1 tablet by jaleesa th two times a day. hydrOXYzine hydrochloride 25 mg oral tablet (20 sources) Antihistamine Start: End: take 1 tablet by mouth every eight hours as needed hydrOXYzine HCl (ATARAX) 25 mg tablet Take 1 tablet by mouth three times daily as needed. Prescribed by PCP 05/17/2021 04/23/2022 Discontinued Comment on above: Take 1 tablet by jaleesa th three times daily as needed. Prescribed by PCP levETIRAcetam 250 mg oral tablet (2 sources) Start: End: take 1 tablet by mouth twice daily levETIRAcetam (KEPPRA) 250 mg tablet Take 1 tablet by mouth two times a day. 60 tablet 12/26/2023 12/26/2023 Discontinued (Discontinued by Patient) 10 ml lidocaine hydrochloride 10 mg/ml injection (2 sources) Antiarrhythmic, Amide Local Anesthetic Start: End: lidocaine (PF) 10 mg/mL (1 %) 1 mL injection (XYLOCAINE) molnupiravir 200 mg capsule (2 sources) Start: End: molnupiravir 200 mg capsule PLEASE SEE ATTACHED [...] until medical assistance is available 1 Box 11/02/2020 05/17/2021 Discontinued Comment on above: Use 1 spray in one n ostril. May repeat every 2 to 3 minutes as needed in alternating nostrils until medical assistance becomes available. Use 1 spray in one n ostril as needed for overdose. May repeat every 2 to 3 min in alternating nostrils until medical assistance is available 10 actuat olodaterol 0.0025 mg/actuat / tiotropium 0.0025 mg/actuat inhalation spray (3 sources) Anticholinergic, beta2-Adrenergic Agonist Start: 11-21-2023 End: 11-21-2023 tiotropium-olodaterol (STIOLTO RESPIMAT) 2.5-2.5 mcg/actuation inhaler Inhale 2 Puffs as instructed once daily. 1 Each 4 11/21/2023 11/21/2023 Discontinued Start: 11-21-2023 tiotropium-olo daterol (STIOLTO RESPIMAT) 2.5-2.5 mcg/actuation inhaler Inhale 2 Puffs as instructed once daily. 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 60 tablet 12/16/2023 01/13/2024 Discontinued Start: 2023 End: 10-30-2023 take 1 tablet [...] for up to 30 days. 120 tablet 05/13/2023 06/09/2023 Discontinued Start: 03-08-2023 End: 05-08-2023 take 1 [...] for up to 30 days. 120 tablet 01/07/2023 02/04/2023 Discontinued Start: 07-17-2022 End: 12-09-2022 take 1 tablet [...] for up to 30 days. 120 tablet 07/17/2022 08/13/2022 Discontinued Start: 04-16-2022 End: 07-14-2022 take 1 tablet [...] for up to 30 days. 120 tablet 08/15/2021 09/15/2021 Discontinued Start: 04-19-2021 End: 08-13-2021 take 1 tablet [...] up to 30 days. perflutren lipid microspheres (DEFINITY) 1.1 mg/mL injection (to be provided with echo procedure) (1 source) Start: End: perflutren lipid microspheres (DEFINITY) 1.1 mg/mL injection (to be provided with echo procedure) Inject 1.3 mL intravenously as needed for up to 1 dose. Instructions Administration Instructions: If no IV access, insert saline lock prior to administering contrast. Discontinue saline lock post exam. If patient has central line or IVAD, may access for administration according to line specific nursing protocol. Once exam is complete, flush line and de-access per line specific nursing protocol. Diluted IV Bolus: Dilute 1.3 ml of Definity with 8.7 ml of preservative-free saline 1.3 mL 11/04/2019 03/15/2021 Discontinued (Course of therapy completed) perflutren lipid microspheres 1.3 mL in NaCl (PF) 0.9% 10 mL injection (DEFINITY) (20 sources) Start: End: perflutren lipid microspheres 1.3 mL in NaCl (PF) 0.9% 10 mL injection (DEFINITY) tapentadol 50 mg oral tablet (4 sources) Opioid Agonist Start: End: take 1 tablet by mouth three times daily as needed tapentadol (NUCYNTA) 50 mg Indications: Chemotherapy-induced neuropathy (HCC) , Radiation induced neuropathy (HCC) , nuclear medical tech (current) use of opiate analgesic , 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 Do not start before March 12, 2021. 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 2 tablet 01/10/2021 02/27/2021 Discontinued Comment on above: Take 1 tablet by jaleesa three times daily as needed for up to 30 days. Do not start before March 12, 2021. tretinoin 0.5 mg/ml topical cream (20 sources) Retinoid Start: 12-07-2021 End: 06-10-2023 tretinoin (RETIN-A) 0.05 % cream Indications: Acne [...] Inhale 1 Puff as instructed once daily. 11/19/2022 04/19/2023 Discontinued (Discontinued by another Health Care Provider) Start: 05-15-2022 End: 09-13-2022 take 1 puff(s) by inhalation once daily INCRUSE ELLIPTA 62.5 mcg/actuation inhaler Inhale 1 Puff as instructed once daily. 05/15/2022 09/13/2022 Discontinued Comment on above: Inhale 1 Puff as ins tructed once daily. Problems Active Problems Problem Classification Problem Date Documented Da te Episodic/Chronic Adjustment disorders (1 source) Adjustment disorder with anxious mood; Translations: [Adjustment disorder with anxiety] 04-23-2024 Chronic Allergic reactions (1 source) Inflammatory dermatosis; Translations: [Dermatitis, unspecified] 04-09-2024 Episodic Anxiety disorders (20 sources) Anxiety; Translations: [Anxiety disorder, unspecified] Onset: 2 Chronic Asthma (20 sources) Asthma; Translations: [Unspecified asthma, uncomplicated] Onset: 3 08-13-2022 Chronic Chronic obstructive pulmonary disease and bronchiectasis (20 sources) Simple chronic bronchitis; Translations: [Simple chronic bronchitis] Onset: 4 Chronic Chronic obstructive pulmonary disease and bronchiectasis (6 sources) Bronchitis, not specified as acute or chronic; Translations: [Bronchitis] Onset: 1 Resolved: 1 Episodic Esophageal disorders (20 sources) Gastroesophageal reflux disease; Translations: [Gastro-esophageal reflux disease without esophagitis] Onset: 6 Resolved: 6 08-23-2022 Chronic Headache; including migraine (3 sources) Daily headache; Translations: [Daily headache] 11-28-2023 Episodic Headache; including migraine (4 sources) Headache; including migraine; Translations: [HEADACHE UNSPECIFIED] Onset: 3 Heart valve disorders (1 source) Mitral valve regurgitation; Translations: [Nonrheumatic mitral (valve) insufficiency] 01-21-2024 Chronic Hodgkin`s disease (20 sources) Hodgkin's disease, nodular sclerosis (clinical); Translations: [Nodular sclerosis Hodgkin lymphoma, unspecified site] Onset: 2 Resolved: 6 Chronic Influenza (2 sources) Pneumonia and influenza; Translations: [Influenza due to unidentified influenza virus with unspecified type of pneumonia] 04-19-2023 Episodic Maintenance chemotherapy; radiotherapy (6 sources) Patient encounter status; Translations: [Encounter for antineoplastic immunotherapy] Chronic Menopausal disorders (20 sources) Premature menopause; Translations: [Asymptomatic premature menopause] Onset: 7 Resolved: 6 09-05-2016 Chronic Miscellaneous mental health disorders (8 sources) Primary insomnia; Translations: [Primary insomnia] 11-26-2023 Chronic Mood disorders (20 sources) Mild major depression, single episode; Translations: [Major depressive disorder, single episode, mild] Onset: 3 08-23-2022 Chronic Mycoses (1 source) Candidiasis of mouth; Translations: [Candidal stomatitis] 06-13-2023 Episodic Nutritional deficiencies (20 sources) Vitamin D deficiency; Translations: [Vitamin D deficiency, unspecified] Onset: 6 Resolved: 6 08-23-2022 Chronic Osteoarthritis (2 sources) Unspecified osteoarthritis, unspecified site; Translations: [Arthropathy, unspecified, site unspecified] 2023 Chronic Other aftercare (20 sources) Patient encounter status; Translations: [Encounter for palliative care] Episodic Other aftercare (20 sources) Drug therapy finding; Translations: [retirement (current) use of opiate analgesic] Onset: 3 Episodic Other aftercare (1 source) Other longterm (current) drug therapy; Translations: [OTH SHOW HOST/HOSTESS CURRENT DRUG THERAPY] Onset: 3 Episodic Other aftercare (12 sources) Under care of palliative care physician; [...] styloid tenosynovitis [de Quervain]] 08-27-2023 Episodic Other connective tissue disease (1 source) Neuralgia; Translations: [Neuralgia and neuritis, unspecified] 03-13-2024 Episodic Other connective tissue disease (2 sources) Pain in left lower limb; Translations: [Pain in left leg] 06-08-2024 Episodic Other endocrine disorders (2 sources) Adrenal cortical hypofunction; Translations: [Unspecified adrenocortical insufficiency] 01-28-2023 Chronic Other gastrointestinal disorders (6 sources) Dysphagia; Translations: [Dysphagia, unspecified] 03-28-2023 Episodic Other gastrointestinal disorders (1 source) Oropharyngeal dysphagia; Translations: [Dysphagia, oropharyngeal phase] 11-21-2023 Episodic Other inflammatory condition of skin (20 sources) Psoriasis vulgaris; Translations: [Psoriasis vulgaris] Onset: 9 04-18-2018 Chronic Other inflammatory condition of skin (20 sources) Psoriatic arthritis; Translations: [Arthropathic psoriasis, unspecified] Onset: 3 12-20-2022 Chronic Other inflammatory condition of skin (20 sources) Psoriasis; Translations: [Psoriasis, unspecified] Onset: 3 01-01-2023 Chronic Other lower respiratory disease (7 sources) Dyspnea on exertion; Translations: [Other forms of dyspnea] Episodic Other lower respiratory disease (7 sources) Chronic cough; Translations: [Chronic cough] Episodic Other lower respiratory disease (1 source) Productive cough ; Translations: [Productive cough] Episodic Other lower respiratory disease (1 source) Abnormal findings on diagnostic imaging of lung; Translations: [Other nonspecific abnormal finding of lung field] Episodic Other lower respiratory disease (3 sources) Cough; Translations: [Acute cough] 05-31-2022 Episodic Other lower respiratory disease (2 sources) Wheezing; Translations: [Wheezing] 05-31-2023 Episodic Other lower respiratory disease (1 source) Hypoxia; Translations: [Hypoxemia] 01-06-2024 Episodic Other nervous system disorders (20 sources) Neuropathy caused by chemical substance; Translations: [Drug-induced polyneuropathy] Onset: 7 Chronic Other nervous system disorders (20 sources) Pain due to neoplastic disease; Translations: [Neoplasm related pain (acute) (chronic)] Chronic Other nervous system disorders (1 source) Neoplasm related pain (acute) (chronic); Translations: [Cancer related pain] Onset: 2 Chronic Other nervous system disorders (2 sources) Drug-induced polyneuropathy; 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)] Onset: 7 Chronic Other nervous system disorders (2 sources) Chronic nonmalignant pain; Translations: [Other chronic pain] 08-12-2023 Chronic Other nervous system disorders (11 sources) Chronic pain syndrome; Translations: [Chronic pain syndrome] 10-17-2023 Chronic Other nervous system disorders (20 sources) Neuropathy; Translations: [Polyneuropathy, unspecified] Onset: 4 06-03-2023 Chronic Other nutritional; endocrine; and metabolic disorders (20 sources) Body mass index 30+ - obesity; Translations: [Body mass index (BMI) 33.0-33.9, adult] Onset: 0 12-25-2019 Chronic Other skin disorders (4 sources) Pain; Translations: [Disorder of the skin and subcutaneous tissue, unspecified] Episodic Other skin disorders (1 source) Acne vulgaris; Translations: [Acne vulgaris] Episodic Other upper respiratory disease (4 sources) Chronic rhinitis; Translations: [Chronic rhinitis] 12-04-2023 Chronic Other upper respiratory disease (1 source) Congestion of nasal sinus; Translations: [Nasal congestion] Episodic Other upper respiratory disease (1 source) Abnormal voice; Translations: [Unspecified voice and resonance disorder] 11-21-2023 Episodic Other upper respiratory infections (5 sources) Recurrent sinusitis; Translations: [Chronic sinusitis, unspecified] 11-20-2023 Chronic Phlebitis; thrombophlebitis and thromboembolism (1 source) H/O: Deep vein thrombosis; Translations: [Personal history of other venous thrombosis and embolism] 01-01-2023 Episodic Pulmonary heart disease (20 sources) Pulmonary hypertension; Translations: [Pulmonary hypertension, unspecified] Onset: 4 06-14-2023 Chronic Residual codes; unclassified (20 sources) History of autologous bone marrow transplant; Translations: [Bone marrow transplant status] Onset: 4 Chronic Residual codes; unclassified (1 source) Obstructive sleep apnea syndrome; Translations: [Obstructive sleep apnea (adult) (pediatric)] 05-20-2024 Chronic Residual codes; unclassified (1 source) Bone marrow transplant status; Translations: [Autologous bone marrow transplantation status (HCC)] Onset: 1 Chronic Respiratory failure; insufficiency; arrest (adult) (3 sources) Chronic hypoxemic respiratory failure; Translations: [Chronic respiratory failure with hypoxia] 01-06-2024 Chronic Screening and history of mental health and substance abuse codes (1 source) Personal history of nicotine dependence; Translations: [PERSONAL HISTORY OF NICOTINE DEPEND] Onset: 3 Episodic Thyroid disorders (20 sources) Acquired hypothyroidism; Translations: [Hypothyroidism, unspecified] Onset: 3 01-01-2023 Chronic Unclassified (20 sources) SUMMARY Onset: 4 Unclassified (1 source) NO SHOW Unclassified (1 source) Lab test negative for COVID-19 virus; Translations: [Lab test negative for COVID-19 virus] Onset: 4 Unclassified (1 source) Subacute cough; Translations: [Subacute cough] Onset: 5 Urinary tract infections (1 source) Acute cystitis [...] unspecified] Onset: 4 Resolved: 6 08-23-2022 Episodic Diabetes mellitus with complications (20 sources) Secondary diabetes mellitus; 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] Onset: 5 Resolved: 6 12-26-2015 Chronic E Codes: Adverse effects of medical drugs (2 sources) Adverse effect of antineoplastic and immunosuppressive drugs, initial encounter; 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)] Onset: 7 Episodic Fluid and electrolyte disorders (20 sources) Disorder [...] cycle] Onset: 8 Resolved: 8 01-01-2018 Chronic Mood disorders (20 sources) Mood disorders Onset: 4 Resolved: 5 08-26-2023 Nausea and vomiting (20 sources) Nausea; Translations: [Nausea] Onset: 4 Resolved: 6 Episodic Nonspecific chest pain (20 sources) Tight chest; Translations: [Other chest pain] Onset: 4 Resolved: 6 Episodic Other aftercare (1 source) nuclear medical tech (current) use of anticoagulants; Translations: [SHOW HOST/HOSTESS CURRNT USE ANTICOAGULANTS] Onset: 2 Episodic Other aftercare (1 source) nuclear medical tech (current) use of opiate analgesic; Translations: [Opioid use agreement exists] Onset: 2 Episodic Other aftercare (1 source) Encounter for palliative care; Translations: [Encounter for palliative care] Onset: 2 Episodic Other aftercare (20 sources) Post-discharge follow-up; Translations: [Encounter for follow-up examination after completed treatment for conditions other than malignant neoplasm] Onset: 4 Resolved: 6 04-19-2023 Episodic Other aftercare (20 sources) Long-term current use of benzodiazepine; Translations: [Other marbleizer (current) drug therapy] Onset: 4 10-10-2023 Episodic Other aftercare (14 sources) Administrative statuses; Translations: [Encounter for palliative care] Onset: 5 04-01-2024 Episodic Other connective tissue disease (1 source) [...] Resolved: 6 12-26-2015 Episodic Other liver diseases (8 sources) Increased creatine kinase level; Translations: [Abnormal levels of other serum enzymes] Onset: 6 Resolved: 6 12-26-2015 Episodic Other lower respiratory disease (20 sources) Restrictive lung disease; Translations: [Other disorders of lung] Onset: 6 09-12-2015 Episodic Other lower respiratory disease (2 sources) Other disorders of lung; Translations: [Restrictive lung disease] Onset: 4 Episodic Other lower respiratory disease (1 source) Shortness of breath; Translations: [SOB (shortness of breath)] Onset: 4 Episodic Other lower respiratory disease (1 source) Personal history of pneumonia (recurrent); Translations: [H/O: pneumonia] Onset: 4 Episodic Other lower respiratory disease (1 source) Other nonspecific abnormal finding of lung field; Translations: [Pulmonary infiltrates] Onset: 4 Episodic Other nervous system disorders (20 sources) Radiation injury of peripheral nerve; 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] Onset: 1 Resolved: 4 10-18-2020 Chronic Other nervous system disorders (20 sources) Peripheral nerve disease ; Translations: [Polyneuropathy, unspecified] Onset: 4 Resolved: 6 02-13-2021 Chronic Other nervous system disorders (20 sources) 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; 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] Onset: 1 Resolved: 4 03-07-2023 Chronic Other nervous system disorders (20 sources) [...] 6 12-26-2015 Episodic Other non-traumatic joint disorders (1 source) Pain in unspecified joint; Translations: [Polyarthralgia] Onset: 4 Episodic Other screening for suspected conditions (not [...] 6 02-13-2021 Episodic Other upper respiratory disease (20 sources) Hoarse; Translations: [Dysphonia] Onset: 3 03-28-2023 Episodic Other upper respiratory infections (20 sources) Posterior rhinorrhea; Translations: [Postnasal drip] Onset: 6 Resolved: 6 03-28-2023 Episodic Otitis media and related conditions (1 source) Otitis media, unspecified, bilateral Onset: 1 Resolved: 1 Episodic Pleurisy; pneumothorax; pulmonary collapse (12 sources) Pleural effusion; Translations: [Pleural effusion, not elsewhere classified] Onset: 4 06-13-2023 Episodic Pneumonia (except that caused by tuberculosis [...] respiratory failure with hypoxia] Onset: 5 Resolved: 4 02-13-2021 Episodic Sexually transmitted infections (not HIV [...] Test Name Value Interpretation Reference Range Facility No Panel InformationOrdered By: Radiologist Radiology on 05-29-2024 [facility] [employer] Work Phone: XR CHEST 2V FRONTAL/LATon * * *Final Report* * * DATE OF EXAM: May 29 2024 8:53AM [id number] 5291 - XR CHEST 2V FRONTAL/LAT / PROCEDURE REASON: Pleural effusion * * * * Physician Interpretation * * * * RESULT: EXAMINATION: CHEST RADIOGRAPH (2 VIEW FRONTAL and LATERAL) CLINICAL HISTORY: Pleural effusion MQ: XC2_6 EXAM DATE/TIME: 05/29/2024 8:53 AM COMPARISON: Chest x-ray dated 05/04/24; PET/CT scan dated 12/11/23 RESULT: Lines, tubes, and devices: None. Lungs and pleura: Bilateral perihilar consolidative opacities, left greater than right, most likely related to post radiation change, stable. Trace loculated left pleural effusion, decreased. No new airspace opacities. No pneumothorax. Cardiomediastinal silhouette: Normal cardiomediastinal silhouette. Bones and soft tissues: Degenerative changes are present within the thoracic spine. IMPRESSION: 1. Trace loculated left pleural effusion, decreased since 05/04/24. 2. Bilateral perihilar consolidative opacities, left greater than right, most likely related to post radiation change, stable. Transcribe Date/Time: May 29 2024 1:47P Dictated by: YOGESH DAVIS MD This examination was interpreted and the report reviewed and electronically signed by: YOGESH DAVIS MD on May 29 2024 2:16PM EST Thank you for allowing us to participate in the care of your patient. Should there be any questions regarding this interpretation, please call [phone]. If you are unable to reach us at the number above, please feel free to contact [facility] at [phone]. [id number]^[email or web address]^SI^ ACN [facility], Radiologist, - 05/29/2024 * * *Final Report* * * DATE OF EXAM: May 29 2024 8:53AM [id number] [id number] - XR CHEST 2V FRONTAL/LAT / PROCEDURE REASON: Pleural effusion * * * * Physician Interpretation * * * * RESULT: EXAMINATION: CHEST RADIOGRAPH (2 VIEW FRONTAL and LATERAL) CLINICAL HISTORY: Pleural effusion MQ: XC2_6 EXAM DATE/TIME: 05/29/2024 8:53 AM COMPARISON: Chest x-ray dated 05/04/24; PET/CT scan dated 12/11/23 RESULT: Lines, tubes, and devices: None. Lungs and pleura: Bilateral perihilar consolidative opacities, left greater than right, most likely related to post radiation change, stable. Trace loculated left pleural effusion, decreased. No new airspace opacities. No pneumothorax. Cardiomediastinal silhouette: Normal cardiomediastinal silhouette. Bones and soft tissues: Degenerative changes are present within the thoracic spine. IMPRESSION: 1. Trace loculated left pleural effusion, decreased since 05/04/24. 2. Bilateral perihilar consolidative opacities, left greater than right, most likely related to post radiation change, stable. Transcribe Date/Time: May 29 2024 1:47P Dictated by: YOGESH DAVIS MD This examination was interpreted and the report reviewed and electronically signed by: YOGESH DAVIS MD on May 29 2024 2:16PM EST Thank you for allowing us to participate in the care of your patient. Should there be any questions regarding this interpretation, please call [phone]. If you are unable to reach us at the number above, please feel free to contact [facility] at [phone]. [id number]^[email or web address]^SI^ ACN [facility] Radiology Study observation (narrative) [facility] XR Chest PA and Lateralon IMPRESSION: 1. Trace loculated left pleural effusion, decreased since 05/04/24. 2. Bilateral perihilar consolidative opacities, left greater than right, most likely related to post radiation change, stable. Transcribe Date/Time: May 29 2024 1:47P Dictated by: YOGESH DAVIS MD This examination was interpreted and the report reviewed and electronically signed by: YOGESH DAVIS MD on May 29 2024 2:16PM EST Thank you for allowing us to participate in the care of your patient. Should there be any questions regarding this interpretation, please call [phone]. If you are unable to reach us at the number above, please feel free to contact [facility] at [phone]. DIVISION OF RADIOLOGY * * *Final Report* * * DATE OF EXAM: May 29 2024 8:53AM [id number] [id number] - XR CHEST 2V FRONTAL/LAT / PROCEDURE REASON: Pleural effusion * * * * Physician Interpretation * * * * RESULT: EXAMINATION: CHEST RADIOGRAPH (2 VIEW FRONTAL & LATERAL) CLINICAL HISTORY: Pleural effusion MQ: XC2_6 EXAM DATE/TIME: 05/29/2024 8:53 AM COMPARISON: Chest x-ray dated 05/04/24; PET/CT scan dated 12/11/23 RESULT: Lines, tubes, and devices: None. Lungs and pleura: Bilateral perihilar consolidative opacities, left greater than right, most likely related to post radiation change, stable. Trace loculated left pleural effusion, decreased. No new airspace opacities. No pneumothorax. Cardiomediastinal silhouette: Normal cardiomediastinal silhouette. Bones and soft tissues: Degenerative changes are present within the thoracic spine. DIVISION OF RADIOLOGY Provider, [facility] Katja Dorsey - 05/29/2024 * * *Final Report* * * DATE OF EXAM: May 29 2024 8:53AM [id number] - XR CHEST 2V FRONTAL/LAT / PROCEDURE REASON: Pleural effusion * * * * Physician Interpretation * * * * RESULT: EXAMINATION: CHEST RADIOGRAPH (2 VIEW FRONTAL & LATERAL) CLINICAL HISTORY: Pleural effusion MQ: XC2_6 EXAM DATE/TIME: 05/29/2024 8:53 AM COMPARISON: Chest x-ray dated 05/04/24; PET/CT scan dated 12/11/23 RESULT: Lines, tubes, and devices: None. Lungs and pleura: Bilateral perihilar consolidative opacities, left greater than right, most likely related to post radiation change, stable. Trace loculated left pleural effusion, decreased. No new airspace opacities. No pneumothorax. Cardiomediastinal silhouette: Normal cardiomediastinal silhouette. Bones and soft tissues: Degenerative changes are present within the thoracic spine. IMPRESSION IMPRESSION: 1. Trace loculated left pleural effusion, decreased since 05/04/24. 2. Bilateral perihilar consolidative opacities, left greater than right, most likely related to post radiation change, stable. Transcribe Date/Time: May 29 2024 1:47P Dictated by: YOGESH DAVIS MD This examination was interpreted and the report reviewed and electronically signed by: YOGESH DAVIS MD on May 29 2024 2:16PM EST Thank you for allowing us to participate in the care of your patient. Should there be any questions regarding this interpretation, please call [phone]. If you are unable to reach us at the number above, please feel free to contact [facility] at [phone]. [facility] Radiology Study observation (narrative) [facility] US CHEST EFFUSION SURVEYon 0 05-08-2024 US CHEST EFFUSION SURVEY * * *Final Report* * * DATE OF EXAM: May 08 2024 8:05PM [facility] 1234 - US CHEST EFFUSION SURVEY / PROCEDURE REASON: Pleural effusion * * * * Physician Interpretation * * * * EXAM: US CHEST EFFUSION SURVEY EXAM DATE: 05/08/2024 8:05 PM CLINICAL HISTORY: Pleural effusion COMPARISON: 01/03/2024 TECHNIQUE: Ultrasound of the pleural spaces was performed. Images were stored in a permanent archive. RESULT: There is no right pleural effusion. There is a small left pleural effusion. IMPRESSION: There is no right pleural effusion. There is a small left pleural effusion. Jig Borer: DEDE Transcribe Date/Time: May 10 2024 4:21P Dictated by : STEFAN MENDOZA MD This examination was interpreted and the report reviewed and electronically signed by: STEFAN MENDOZA MD on May 10 2024 4:21PM EST [id number] [facility] CBC W AUTO DIFF BLDon Basophils/100 WBC (Bld) 0.3 % [facility] BASOPHILS # BLD AUTO <0.03 [facility] DIFFERENTIAL METHOD BLD Auto [facility] EOSINOPHIL # BLD AUTO 0.26 [facility] LYMPHOCYTES # BLD AUTO 1.95 [facility] MONOCYTES # BLD AUTO 0.67 [facility] NEUTROPHILS # [facility] # BLD AUTO <0.01 [facility] NRBC/100 WBC BLD-RTO 0 /[address] [facility] PLATELET # BLD AUTO 297 [facility] PMV BLD AUTO 8.8 fL Low 9.0 - 12.[address] [facility] WBC # BLD AUTO 7.6 [facility] Eosinophils/100 WBC (Bld) 3.4 % [facility] Erythrocyte distribution width (RBC) [Ratio] 13.5 % 11.5 - 15.0 % [facility] Hematocrit (Bld) [Volume fraction] 43.1 % 36.0 - 46.0 % [facility] Hemoglobin (Bld) [Mass/Vol] 14.3 g/dL 11.5 - 15.5 g/dL [facility] IMM GRANULOCYTES # BLD AUTO <0.03 [facility] IMM GRANULOCYTES/LEUK NFR BLD AUTO 0.3 % [facility] Interpretation and review of laboratory results Abnormal [facility] Lymphocytes/100 WBC (Bld) 25.7 % [facility] MCH (RBC) [Entitic mass] 31.4 pg 26.0 - 34.[address] [facility] MCHC (RBC) [Mass/Vol] 33.2 g/dL 30.5 - 36.0 g/dL [facility] MCV (RBC) [Entitic vol] 94.7 fL 80.0 - 100.[address] [facility] Monocytes/100 WBC (Bld) 8.8 % [facility] Neutrophils/100 WBC (Bld) 61.5 % [facility] RBC (Bld) [#/Vol] 4.55 10*6/uL 3.90 - 5.2 0 m/uL [facility] Specimen Type: BLOOD SPECIMEN Ordering Facility: [facility] Address: [address] [place] [address] Original Ordering Provider: RUPERTO CHARLES [facility] No Panel InformationOrdered By: Radiologist Radiology on 05-04-2024 [facility] Work Phone: XR CHEST 2V FRONTAL/LATon * * *Final Report* * * DATE OF EXAM: May 04 2024 10:50AM [id number] [id number] - XR CHEST 2V FRONTAL/LAT / PROCEDURE REASON: Subacute cough * * * * Physician Interpretation * * * * RESULT: FRONTAL AND LATERAL CHEST RADIOGRAPHS HISTORY: Subacute cough . TECHNIQUE: Frontal and lateral views of the chest were obtained. COMPARISON: 12/18/2023 RESULT: Cardiomediastinal silhouette is normal. Left paramediastinal radiation fibrosis unchanged. No new consolidation. New moderate left pleural effusion. No right pleural effusion. No pneumothorax. IMPRESSION: New moderate left pleural effusion. Transcribe Date/Time: May 04 2024 11:15A Dictated by: JEWELL VUONG MD This examination was interpreted and the report reviewed and electronically signed by: JEWELL VUONG MD on May 04 2024 11:19AM EST Thank you for allowing us to participate in the care of your patient. Should there be any questions regarding this interpretation, please call [phone]. If you are unable to reach us at the number above, please feel free to contact [facility] at [phone]. [id number]^[email or web address]^SI^ ACN [facility], MD Jocelyn - 05/04/2024 * * *Final Report* * * DATE OF EXAM: May 04 2024 10:50AM [id number] [id number] - XR CHEST 2V FRONTAL/LAT / PROCEDURE REASON: Subacute cough * * * * Physician Interpretation * * * * RESULT: FRONTAL AND LATERAL CHEST RADIOGRAPHS HISTORY: Subacute cough . TECHNIQUE: Frontal and lateral views of the chest were obtained. COMPARISON: 12/18/2023 RESULT: Cardiomediastinal silhouette is normal. Left paramediastinal radiation fibrosis unchanged. No new consolidation. New moderate left pleural effusion. No right pleural effusion. No pneumothorax. IMPRESSION: New moderate left pleural effusion. Transcribe Date/Time: May 04 2024 11:15A Dictated by: JEWELL VUONG MD This examination was interpreted and the report reviewed and electronically signed by: JEWELL VUONG MD on May 04 2024 11:19AM EST Thank you for allowing us to participate in the care of your patient. Should there be any questions regarding this interpretation, please call [phone]. If you are unable to reach us at the number above, please feel free to contact [facility] at [phone]. [id number]^[email or web address]^SI^ ACN [facility] Radiology Study observation (narrative) [facility] XR Chest PA and Lateralon IMPRESSION: New moderate left pleural effusion. Transcribe Date/Time: May 04 2024 11:15A Dictated by: JEWELL VUONG MD This examination was interpreted and the report reviewed and electronically signed by: JEWELL VUONG MD on May 04 2024 11:19AM EST Thank you for allowing us to participate in the care of your patient. Should there be any questions regarding this interpretation, please call [phone]. If you are unable to reach us at the number above, please feel free to contact [facility] at [phone]. DIVISION OF RADIOLOGY * * *Final Report* * * DATE OF EXAM: May 04 2024 10:50AM NRX [id number] - XR CHEST 2V FRONTAL/LAT / PROCEDURE REASON: Subacute cough * * * * Physician Interpretation * * * * RESULT: FRONTAL AND LATERAL CHEST RADIOGRAPHS HISTORY: Subacute cough . TECHNIQUE: Frontal and lateral views of the chest were obtained. COMPARISON: 12/18/2023 RESULT: Cardiomediastinal silhouette is normal. Left paramediastinal radiation fibrosis unchanged. No new consolidation. New moderate left pleural effusion. No right pleural effusion. No pneumothorax. DIVISION OF RADIOLOGY Provider, [facility] Katja Sparrow [facility] - 05/04/2024 * * *Final Report* * * DATE OF EXAM: May 04 2024 10:50AM [id number] [id number] - XR CHEST 2V FRONTAL/LAT / PROCEDURE REASON: Subacute cough * * * * Physician Interpretation * * * * RESULT: FRONTAL AND LATERAL CHEST RADIOGRAPHS HISTORY: Subacute cough . TECHNIQUE: Frontal and lateral views of the chest were obtained. COMPARISON: 12/18/2023 RESULT: Cardiomediastinal silhouette is normal. Left paramediastinal radiation fibrosis unchanged. No new consolidation. New moderate left pleural effusion. No right pleural effusion. No pneumothorax. IMPRESSION IMPRESSION: New moderate left pleural effusion. Transcribe Date/Time: May 04 2024 11:15A Dictated by: JEWELL VUONG MD This examination was interpreted and the report reviewed and electronically signed by: JEWELL VUONG MD on May 04 2024 11:19AM EST Thank you for allowing us to participate in the care of your patient. Should there be any questions regarding this interpretation, please call [phone]. If you are unable to reach us at the number above, please feel free to contact [facility] at [phone]. [facility] Radiology Study observation (narrative) [facility] CBC PNL BLD AUTOon 03-13 [facility] # [facility] [facility] PLATELET # BLD AUTO 297 [facility] PMV BLD AUTO 9 fL 9.0 - 12.[address] [facility] WBC # BLD AUTO 9.57 [facility] Erythrocyte distribution width (RBC) [Ratio] 13.6 % 11.5 - 15.0 % [facility] Hematocrit (Bld) [Volume fraction] 43 % 36.0 - 46.0 % [facility] Hemoglobin (Bld) [Mass/Vol] 14.3 g/dL 11.5 - 15.5 g/dL [facility] MCH (RBC) [Entitic mass] 31 pg 26.0 - 34.[address] [facility] MCHC (RBC) [Mass/Vol] 33.3 g/dL 30.5 - 36.0 g/dL [facility] MCV (RBC) [Entitic vol] 93.1 fL 80.0 - 100.[address] [facility] RBC (Bld) [#/Vol] 4.62 10*6/uL 3.90 - 5.2 0 m/uL [facility] Specimen Type: BLOOD SPECIMEN Ordering Facility: [facility] Address: [address] [place] [address] Original Ordering Provider: NOVA CHARLES [facility] ARTERIAL BLOOD GASESon 03-16-2023 BASE DEFICIT BLDA-SCNC -1 mmol/L -2 - 0 mmol/L [facility] Body temperature 98.6 [degF] [facility] CA-I ADJ PH7.4 BLDA-SCNC 1.21 mmol/L 1.08 - 1.30 mmol/L [facility] CA-I BLD-MCNC 1.24 mmol/L 1.08 - 1.3 0 mmol/L [facility] COHGB MFR BLDA 1.6 % 0.0 - 2.0 % [facility] Comment on above: Carboxyhemoglobin Re ference Range for Smokers: 2.0-8.0% [facility] LACTATE BLD-SCNC 2 mmol/L 0.5 - 2 .2 mmol/L [facility] METHGB MFR BLD <1.0 0.0 - 1.5 % [facility] O2 THERAPY RA=Room Air [facility] OXYHGB MFR BLDA 93 % Low 95 - 98 % [facility] PCO2 BLD 45 [facility] PH BLD 7.36 7.35 - 7.45 [facility] PO2 BLD [address] [facility] Glucose [Mass/Vol] 114 mg/dL High 60 - 105 mg/dL [facility] HCO3 (Bld) [Moles/Vol] 25 mmol/L 22 - 26 mmol/L [facility] Hematocrit (Bld) [Volume fraction] 43.6 % 36.0 - 46.0 % [facility] Hemoglobin (Bld) [Mass/Vol] 14.2 g/dL 11.5 - 15.5 g/dL [facility] Interpretation and review of laboratory results Abnormal [facility] PO2 / FIO2 RATIO 333 - PINF [facility] Potassium [Moles/Vol] 4.1 mmol/L 3.5 - 5.0 mmol/L [facility] SAO2 % BLDA 95 % 95 - 98 % [facility] Sodium [Moles/Vol] 142 mmol/L 136 - 144 mmol/L [facility] Specimen Type: ARTERIAL BLOOD SPECIMEN Ordering Facility: [facility] Address: [facility] [place] [address] Original Ordering Provider: JANI CHARLES [facility] NM LUNG VENT / PERF VQon NM LUNG VENT / PERF VQ * * *Final Report* * * DATE OF EXAM: Jan 15 2024 11:18AM N 0032 - NM LUNG VENT / PERF VQ / PROCEDURE REASON: Other secondary pulmonary hypertension (HCC) * * * * Physician Interpretation * * * * LUNG SCAN CLINICAL HISTORY: Shortness of breath. TECHNIQUE: 0.8 millicuries of Tc-99m DTPA aerosol was inhaled. 5.3 mCi of Tc-99m MAA was administered IV. Planar imaging of the lungs in multiple views (anterior, posterior, bilateral oblique and lateral views). RESULT: Matched ventilation/perfusion findings- diffusely decreased uptake in the left lung, and nonsegmental appearing decreased uptake in the midupper lung zone, worse in the ventilation images, and likely corresponding to the findings on the 12/11/[address] although a more recent radiographic correlation is not available. No moderate/large segmental mismatched perfusion defects. IMPRESSION: LOW probability VQ scan. If there is a discordant clinical likelihood of thromboembolic disease, additional evaluation with lower extremity venous Dopplers and/or contrast-enhanced PE protocol chest CT may be performed. Jig Borer: PSCB Transcribe Date/Time: Jan 15 2024 11:50A Dictated by : CAIO HINKLE MD This examination was interpreted and the report reviewed and electronically signed by: CAIO HINKLE MD on Jan 15 2024 11:53AM EST [id number] [facility] NM Lung Ventilation and Perf usionon 01-15-2024 IMPRESSION: LOW probability VQ scan. If there is a discordant clinical likelihood of thromboembolic disease, additional evaluation with lower extremity venous Dopplers and/or contrast-enhanced PE protocol chest CT may be performed. Jig Borer: PSCEdwin Transcribe Date/Time: Jan 15 2024 11:50A Dictated by : ACIO HINKLE MD This examination was interpreted and the report reviewed and electronically signed by: CAIO HINKLE MD on Jan 15 2024 11:53AM [facility] RADIOLOGY * * *Final Report* * * DATE OF EXAM: Jan 15 2024 11:18AM N 0032 - NM LUNG VENT / PERF VQ / PROCEDURE REASON: Other secondary pulmonary hypertension (HCC) * * * * Physician Interpretation * * * * LUNG SCAN CLINICAL HISTORY: Shortness of breath. TECHNIQUE: 0.8 millicuries of Tc-99m DTPA aerosol was inhaled. 5.3 mCi of Tc-99m MAA was administered IV. Planar imaging of the lungs in multiple views (anterior, posterior, bilateral oblique and lateral views). RESULT: Matched ventilation/perfusion findings- diffusely decreased uptake in the left lung, and nonsegmental appearing decreased uptake in the midupper lung zone, worse in the ventilation images, and likely corresponding to the findings on the 12/11/[address] although a more recent radiographic correlation is not available. No moderate/large segmental mismatched perfusion defects. [facility] Provider, [facility] - 01/15/2024 * * *Final Report* * * DATE OF EXAM: Jan 15 2024 11:18AM N 0032 - NM LUNG VENT / PERF VQ / PROCEDURE REASON: Other secondary pulmonary hypertension (HCC) * * * * Physician Interpretation * * * * LUNG SCAN CLINICAL HISTORY: Shortness of breath. TECHNIQUE: 0.8 millicuries of Tc-99m DTPA aerosol was inhaled. 5.3 mCi of Tc-99m MAA was administered IV. Planar imaging of the lungs in multiple views (anterior, posterior, bilateral oblique and lateral views). RESULT: Matched ventilation/perfusion findings- diffusely decreased uptake in the left lung, and nonsegmental appearing decreased uptake in the midupper lung zone, worse in the ventilation images, and likely corresponding to the findings on the 12/11/[address] although a more recent radiographic correlation is not available. No moderate/large segmental mismatched perfusion defects. IMPRESSION IMPRESSION: LOW probability VQ scan. If there is a discordant clinical likelihood of thromboembolic disease, additional evaluation with lower extremity venous Dopplers and/or contrast-enhanced PE protocol chest CT may be performed. Jig Borer: DEDE Transcribe Date/Time: Jan 15 2024 11:50A Dictated by : CAIO HINKLE MD This examination was interpreted and the report reviewed and electronically signed by: CAIO HINKLE MD on Jan 15 2024 11:53AM EST [facility] Radiology Study observation (narrative) [facility] Lung Ventilation and Perf usionOrdered By: [facility] Provider on 01-15-2024 [facility] OXIMETRY WITH AMBULATIONon 1 03-16-2023 Perla Powell, JULIANO 01/15/2024 10:22 AM RESPIRATORY THERAPY OXIMETRY WITH AMBULATION Oximetry with Ambulation Test for This Encounter O2 Device O2 Adapter NC O2 Flow SpO2% HR Activity Ft Walked (ft) Time (min) Avg Speed (MPH) R/A 98 86 Resting R/A 91 110 Walking, usual pace 555 3 2.1 R/A 98 94 Resting R/A 90 110 Walking, usual pace 640 3 2.42 General Information Pulse Oximetry Site Total Time Spent Walking Assistance/O2 Supply Carrier Forehead 20 None NAME: Perla Powell RRT PATIENT NAME: Celso Pacheco Janee DATE: January 15, 2024 TIME: 10:19 AM Comment: [facility] Varun 01-14-2024 CNPN Telephone (AVXRMO) CELSO WELLER ([id number]) 1980 F Date Time Provider Department 01/14/24 JOCELYN EDWARDS AVXRMO During your visit today, we recorded the following information about you: Jocelyn Edwards, RT(R) 01/14/2024 11:32 AM Signed Spoke with patient confirming arrival of 10:45. Explained test, length, no prep and confirmed /breastfeedin g status. Patient is schedule in the morning at [facility] for pulmonary appointments and will come down as soon as she is done to see if we can do sooner than appointment for VQ. Allergies As of Date: 01/14/2024 Noted Allergy Reaction CHLORHEXIDINE 03/11/2013 9 - Itching Comments: Severe skin irritation. Had used for central line care SULFA (SULFONAMIDE ANTIBIOTICS) 01/07/2012 2 - Rash Date Reviewed: 01/14/2024 Reviewed by: Jocelyn Edwards RT(R) - Fully Assessed Reason for Visit: Radiology NM [0349] Cmt: Appointment reminder. Prescriptions as of 01/14/2024 - escitalopram oxalate (LEXAPRO) 10 mg tablet Take 1 tablet by mouth once daily. - oxyCODONE IR (ROXICODONE) 10 mg tab Take 1 tablet by mouth two times a day as needed for pain for up to 30 days. - cyclobenzaprine (FLEXERIL) 10 mg tablet Take 1 tablet by mouth two times a day as needed for muscle spasm. - sodium chloride (NEBUSAL) 3 % nebulizer solution Use 4 mL via nebulizer two times a day. - traZODone (DESYREL) 100 mg tablet Take 100 mg by mouth at bedtime as needed. AT BEDTIME. - tolterodine ER (DETROL LA) 2 mg 24 hr capsule Take 2 mg by mouth once daily. - gabapentin (NEURONTIN) 300 mg capsule Take 2 capsules by mouth three times a day for 90 days. - ipratropium-albuterol (DUONEB) 0.5 mg-3 mg(2.5 mg base)/3 mL nebu inhale contents of 1 vial ( 3 MILLILITERS ) in nebulizer by mouth and INTO THE LUNGS every 6 hours if needed for wheezing or shortness of breath - pantoprazole DR (PROTONIX) 40 mg tablet Take 1 tablet by mouth once daily. - prochlorperazine (COMPAZINE) 10 mg tablet take 1 tablet by mouth every 6 hours if needed - LORazepam (ATIVAN) 0.5 mg take 1 tablet by mouth four times a day if needed for anxiety - XARELTO 10 mg tablet take 1 tablet by mouth once daily - Biotin 2,500 mcg cap - fluocinonide (LIDEX) 0.05 % cream apply to affected area ON THE RIGHT HAND and legs TWICE A DAY - levothyroxine (SYNTHROID) 75 mcg tablet Take 1 tablet by mouth once daily. - triamcinolone acetonide (KENALOG) 0.1 % ointment APPLY TO THE AFFECTED AREA TWICE A DAY FOR 5 DAYS - Vitamin B Comp and C No.3 (B COMPLEX PLUS VITAMIN C) 98-57-65-5-300 mg cap Take 1 tablet by mouth [...] it soon. Problem List As Of Date 01/14/2024 Noted Resolved Hodgkin's disease, unspecified [C81.90] 02/05/2012 05/11/2014 Pulmonary embolism (HCC) [I26.99] 05/27/2012 Hodgkin's disease with nodular sclerosis [C81.1*05/27/2012 12/26/2015 DISPOSITION AND FOLLOW-UP [V999.01] 10/27/2012 12/26/2015 Post-op pain [G89.18] 10/27/2012 12/26/2015 Electrolyte and fluid disorders not elsewhere c*02/16/2013 12/26/2015 Peripheral neuropathy [G62.9] 03/16/2013 12/26/2015 DVT prophylaxis [[id number]] 03/16/2013 12/26/2015 SUMMARY [V999.95] 03/16/2013 Insomnia [G47.00] 03/16/2013 12/26/2015 Autologous bone marrow transplantation status (*03/16/2013 Chronic chest pain [R07.9, G89.29] 03/16/2013 12/26/2015 Hospital discharge follow-up [Z09] 03/16/2013 12/26/2015 Tachycardia [R00.0] 03/16/2013 12/26/2015 CINV (chemotherapy-induced nausea and vomiting)*03/17/2013 10/13/2015 Excess fluid volume [E87.70] 03/21/2013 12/26/2015 Elevated LFTs [R79.89] 03/22/2013 12/26/2015 Reflux [PFF3238] 03/23/2013 12/26/2015 Mucositis (ulcerative) due to antineoplastic th*03/24/2013 12/26/2015 Vaginal bleeding [N93.9] 12/26/2015 Hyperpigmentation of skin [L81.9] 03/31/2013 12/26/2015 Diarrhea [R19.7] 03/31/2013 12/26/2015 Arm pain, left [M79.602] 07/06/2013 12/26/2015 Back pain without radiation [M54.9] 07/06/2013 12/26/2015 Abnormal finding on imaging [R93.89] 07/06/2013 12/26/2015 Elevated sed rate [R70.0] 07/06/2013 12/26/2015 Urgency of micturation [R39.15] 03/04/2014 12/26/2015 Urinary frequency [R35.0] 03/04/2014 12/26/2015 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 Normal [facility]OBNP [facility]Con 1 03-07-2023 Natriuretic peptide B (Bld) [Mass/Vol] 643 pg/mL High NINF - 125 pg/mL [facility] Healthcare Specimen Type: BLOOD SPECIMEN Ordering Facility: [facility] Address: [address] [place] [address] Original Ordering Provider: [facility] Comprehensive metabolic 2000 panelon 01-06-2024 Albumin [Mass/Vol] 4.2 g/dL 3.9 - 4.9 g/dL [facility] ALP [Catalytic activity/Vol] 56 U/L 34 - 123 U/L [facility] ALT [Catalytic activity/Vol] 38 U/L 7 - 38 U/L [facility] Anion gap [Moles/Vol] 9 mmol/L 8 - 15 mmol/L [facility] AST [Catalytic activity/Vol] 39 U/L High 13 - 35 U/L [facility] Bilirubin [Mass/Vol] 0.5 mg/dL 0.2 - 1 .3 mg/dL [facility] Calcium [Mass/Vol] 9.5 mg/dL 8.5 - 10. 2 mg/dL [facility] Chloride [Moles/Vol] 103 mmol/L 98 - 10 7 mmol/L [facility] CO2 [Moles/Vol] 30 mmol/L 22 - 30 mmol/L [facility] Creatinine [Mass/Vol] 0.73 mg/dL 0.58 - 0.96 mg/dL [facility] GFR/1.73 sq M.predicted among non-blacks MDRD (S/P/Bld) [Vol rate/Area] 106 mL/min/{1.73_m2} - PINF [facility] Comment on above: Estimated Glomerular Filtration [...] not accurately reflect actual GFR. Glucose [Mass/Vol] 91 mg/dL 74 - 99 mg/dL [facility] Comment on above: The [place] Diab[employer] s Association (ADA) provides guidance for [...] Standards of Medical Care in Diabetes 2016, [place] [employer] Association. Diabetes Care. 2016.39(Suppl 1). Interpretation and review of laboratory results Abnormal [facility] Potassium [Moles/Vol] 4.0 mmol/L 3.7 - 5.1 mmol/L [facility] Protein [Mass/Vol] 7.0 g/dL 6.3 - 8.0 g/dL [facility] Sodium [Moles/Vol] 142 mmol/L 136 - 144 mmol/L [facility] Urea nitrogen [Mass/Vol] 7 mg/dL 7 - 21 mg/dL [facility] Albumin [Mass/Vol] 4.2 g/dL Normal 3.9-4.9 [facility] Comment on above: Order Comment: Speci men Type: BLOOD SPECIMENOrdering Facility: [facility] Address: [address] [place] [address] Performed By: #### 3 3762-6, 91093-5, ####[facility]ORATORYCLIA [id number] [place] [address] [place] ALP [Catalytic activity/Vol] 56 U/L Normal 34-123 [facility] Comment on above: Order Comment: Speci men Type: BLOOD SPECIMENOrdering Facility: [facility] Address: [address] [place] [address] Performed By: #### 3 3762-6, 74831-8, ####[facility]ATORYCLIA [id number] [place] [address] [place] ALT [Catalytic activity/Vol] 38 U/L Normal 7-38 [facility] Comment on above: Order Comment: Speci men Type: BLOOD SPECIMENOrdering Facility: [facility] Address: [address] [place] [address] Performed By: #### 3 3762-6, 58299-3, ####[facility]ATORYCLIA [id number] [place] [address] [place] Anion gap [Moles/Vol] 9 mmol/L Normal 8-15 [facility] Comment on above: Order Comment: Speci men Type: BLOOD SPECIMENOrdering Facility: [facility] Address: [address] [place] [address] Performed By: #### 3 3762-6, 69578-7, ####[facility]ORATORYCLIA [id number] [place] [address] [place] AST [Catalytic activity/Vol] 39 U/L High 13-35 [facility] Comment on above: Order Comment: Speci men Type: BLOOD SPECIMENOrdering Facility: [facility] Address: [address] [place] [address] Performed By: #### 3 3762-6, 01966-7, ####[facility]ATORYCLIA [id number] [place] [address] [place] Bilirubin [Mass/Vol] 0.5 mg/dL Normal 0.2-1.3 [facility] Comment on above: Order Comment: Speci men Type: BLOOD SPECIMENOrdering Facility: [facility] Address: [address] [place] [address] Performed By: #### 3 3762-6, , ####[facility]PITALIA [id number] [place] [address] [place] Calcium [Mass/Vol] 9.5 mg/dL Normal 8.5-10.2 [facility] Comment on above: Order Comment: Speci men Type: BLOOD SPECIMENOrdering Facility: [facility] Address: [address] [place] [address] Performed By: #### 3 3762-6, , ####[facility]PITALIA [id number] [place] [address] [place] Chloride [Moles/Vol] 103 mmol/L Normal 98-107 [facility] Comment on above: Order Comment: Speci men Type: BLOOD SPECIMENOrdering Facility: [facility] Address: [address] [place] [address] Performed By: #### 3 3762-6, 69418-9, ####[facility]ATORYIA [id number] [place] [address] [address] [place] CO2 [Moles/Vol] 30 mmol/L Normal 22-30 [facility] ital Comment on above: Order Comment: Speci men Type: BLOOD SPECIMENOrdering Facility: [facility] Address: [address] [place] [address] Performed By: #### 3 3762-6, 76493-7, ####[facility]ATORYCLIA [id number] [facility] [place] [address] [place] Creatinine [Mass/Vol] 0.73 mg/dL Normal 0.58-0.96 [facility] Comment on above: Order Comment: Speci men Type: BLOOD SPECIMENOrdering Facility: [facility] Address: [address] [place] [address] Performed By: #### 3 3762-6, 41126-1, ####[facility]ORYCLIA [id number] [facility] [place] [address] [place] [facility] Creatinine and Glomerular filtration rate.predicted panel (S/P/Bld) 106 mL/min/1.73m??? Normal >=60 [facility] Comment on above: Order Comment: Speci men Type: BLOOD SPECIMENOrdering Facility: [facility] Address: [address] [place] [address] Result Comment: Purnima mated Glomerular Filtration Rate [...] accurately reflect actual GFR. Performed By: #### 3 3762-6, 42730-7, ####[facility]ATORYCLIA [id number] [facility] [place] [address] [place] Glucose [Mass/Vol] 91 mg/dL Normal 74-99 [facility] Comment on above: Order Comment: Speci men Type: BLOOD SPECIMENOrdering Facility: [facility] Address: [address] [place] [address] Result Comment: The [place] Diabetes Association (ADA) provides guidance for cutoff [...] Standards of Medical Care in Diabetes 2016, [place] Diabetes [employer]. Diabetes Care. 2016.39(Suppl 1). Performed By: #### 3 3762-6, 59550-7, ####[facility]PITALIA [id number] [place] [address] [place] Potassium [Moles/Vol] 4.0 mmol/L Normal 3.7-5.1 [facility] Comment on above: Order Comment: Speci men Type: BLOOD SPECIMENOrdering Facility: [facility] Address: [address] [place] [address] Performed By: #### 3 3762-6, 79656-7, ####[facility]PITALIA [id number] [place] [address] [place] Protein [Mass/Vol] 7.0 g/dL Normal 6.3-8.0 [facility] Comment on above: Order Comment: Speci men Type: BLOOD SPECIMENOrdering Facility: [facility] Address: [address] [place] [address] Performed By: #### 3 3762-6, 85810-7, ####[facility]ORATORYIA [id number] [place] [address] [place] Sodium [Moles/Vol] 142 mmol/L Normal 136-144 [facility] Comment on above: Order Comment: Speci men Type: BLOOD SPECIMENOrdering Facility: [facility] Address: [address] [place] [address] Performed By: #### 3 3762-6, 31441-6, ####[facility]ORATORYCLIA [id number] [facility] [place] [address] [place] Urea nitrogen [Mass/Vol] 7 mg/dL Normal 7-21 [facility] Comment on above: Order Comment: Speci men Type: BLOOD SPECIMENOrdering Facility: [facility] Address: [address] [address] Performed By: #### 3 3762-6, 30430-1, ####[facility]ORATORYCLIA [id number] [place] [address] [place] MAGNESIUMon 01-06-2024 Magnesium [Mass/Vol] 2.1 mg/dL 1.7 - 2 .3 mg/dL [facility] Magnesium [facility]mCncon 01-05 Magnesium [Mass/Vol] 2.1 mg/dL Normal 1.7-2.3 [facility] Comment on above: Order Comment: Speci men Type: BLOOD SPECIMENOrdering Facility: [facility] Address: [address] [place] [address] Performed By: #### 3 3762-6, , ####[facility]PITALIA [id number] [place] [address] [place] Magnesium [Mass/Vol]on 01-05 Interpretation and review of laboratory results Normal [facility] NT PRO BNPon 01-06-2024 Natriuretic peptide.B prohormone N-Terminal [Mass/Vol] 643 pg/mL High NINF - 125 pg/mL [facility] NT-proBNP SerPl-mCncon 01-05 Natriuretic peptide.B prohormone N-Terminal [Mass/Vol] 643 pg/mL High <125 [facility] Comment on above: Order Comment: Speci men Type: BLOOD SPECIMENOrdering Facility: [facility] Address: [address] [place] [address] Performed By: #### 3 3762-6, 26995-0, ####[facility]ATORYCLIA [id number] [facility] [place] [address] [place] No Panel Informationon 01-05 [facility] Interpretation and review of laboratory results Abnormal [facility] US CHEST EFFUSION SURVEYon 1 03-04-2023 US CHEST EFFUSION SURVEY * * *Final Report* * * DATE OF EXAM: Jan 03 2024 1:40PM [facility] 1234 - US CHEST EFFUSION SURVEY / PROCEDURE REASON: Pleural effusion, left * * * * Physician Interpretation * * * * EXAMINATION: US CHEST EFFUSION SURVEY CLINICAL INFORMATION: 43 years old Female with Pleural effusion, left TECHNIQUE: Targeted sonography of the chest was performed. Images were obtained and stored in a permanent archive. COMPARISON: Chest radiograph 12/18/2023 RESULT/ IMPRESSION: Trace RIGHT pleural effusion and small LEFT pleural effusion. Jig Borer: DEDE Transcribe Date/Time: Jan 05 2024 10:39P Dictated by : FIORELLA RIVERA DO This examination was interpreted and the report reviewed and electronically signed by: FIORELLA RIVERA DO on Jan 05 2024 10:40PM EST [id number] Normal [facility] BACTERIA BAL AEROBE CULT on 12-23-2023 [facility] BACTERIA BAL AEROBE CULT CULTURE, BRONCH: No growth [address] [facility] BACTERIA BAL AEROBE CULT GRAM STAIN: No organisms seen [facility] BACTERIA BAL AEROBE CULT Rare Polymorphonuclear leukocytes [facility] CC BACTERIA BAL AEROBE CULT Gram stain performed on cytospun specimen. [facility] Original Ordering Provider: QUINCY CHARLES [facility] ANE POSTPROC EVALon 024 ANES POSTPROC EVAL HNO ID: [id number] Author: EDUIN CA MD Service: Anesthesiology Author Type: Anesthesiologist Type: Anesthesia Postprocedure Evaluation Filed: 12/20/2023 14:15 Note Text: POST ANESTHESIA EVALUATION NOTE : 1980 Procedure Summary Date: 12/20/23 Room / Location: AV ENDO 02 / ENDO Anesthesia Start: 1337 Anesthesia Stop: 1410 Procedure: BRONCHOSCOPY FLEX W/ ALVEOLAR LAVAGE ADULT (Bronchus) Diagnosis: Pulmonary infiltrates (Pulmonary infiltrates [R91.8]) Surgeons: Quincy Kang MD Responsible Provider: Eduin Ca MD Anesthesia Type: general ASA Status: 3 Anesthesia Type: general Airway Type: LMA Last Vitals Vitals Value Taken Time BP 90/54 12/20/23 1410 Temp 36.1 ?C (97 ?F) 12/20/23 1405 Pulse 99 12/20/23 1414 Resp 13 12/20/23 1414 SpO2 98 % 12/20/23 1414 Vitals shown include unfiled device data. Post Anesthesia Patient Status Patient Evaluation: PACU. PACU/ICU Patient Condition: stable. Anticipated Disposition: phase 2 then home. Neurological Status: aware and responsive. Pulmonary Status: breathing comfortably on room air Airway Control: returned to baseline unsupported. Cardiovascular Status: stable. Pain Management: clinically adequate - multimodal analgesia pain management approach Postoperative Hydration: acceptable. Intraoperative Events: no significant anesthesia events Recommendation: continue current plan of care. Anesthesia Observations No Documentation SIGNATURE: Eduin Ca MD PATIENT NAME: Celso Weller DATE: December 20, 2023 TIME: 2:15 PM CSN: [id number] [facility] ANES PRE-OPon 12-20-2023 ANES PRE-OP HNO ID: [id number] Author: EDUIN CA MD Service: Anesthesiology Author Type: Anesthesiologist Type: Anesthesia Preprocedure Evaluation Filed: 12/20/2023 13:30 Note Text: ANESTHESIOLOGY DAY OF SURGERY NOTE : 1980 Procedure Information Date/Time: 12/20/23 1315 Procedure: BRONCHOSCOPY FLEX W/ ALVEOLAR LAVAGE ADULT (Bronchus) Location: AV ENDO 02 / AV ENDO Surgeons: Quincy Kang MD Estimated body mass index is 31.99 kg/m? as calculated from the following: Height as of this encounter: 182.9 cm (6'). Weight as of this encounter: 107 kg (235 lb 14.3 oz). 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 Tracheostomy tube not present Mallampati: II. TM distance: >3 FB. Neck ROM: full ROM without neurological symptoms. Mouth opening: adequate. Short neck: no. Thick neck: no DENTAL Dental findings: teeth intact. Additional exam findings: no II - ANESTHESIA PLAN ASA Score: 3 Anesthetic Plan: general Airway type: LMA NPO Status: adequate Beta Tyrone Monitoring Plan Monitoring plan: Standard ASA. Post Procedure Analgesic Plan Postoperative analgesic plan: parenteral or oral opioids and multimodal analgesia. Informed Consent Anesthetic risks, benefits, alternatives, personnel and consent discussed: yes. Patient / Responsible Republican agrees to proceed: yes Patient / Surrogate agrees to blood products: yes DNR status not reviewed with patient and/or family prior to surgery. Significant changes in the patient condition since the History and Physical, not otherwise documented in primary service progress note: no. Potential Anesthesia issues that may suggest increased risk of complications or contraindication to planned procedure: none. Vitals Value Taken Time BP 123/85 12/20/23 1258 Pulse Resp 18 12/20/23 1258 Temp 36.2 ?C (97.1 ?F) 12/20/23 1258 SpO2 98 % 12/20/23 1258 Facility-Administered Medications as of 12/20/2023 Medication Dose Route Frequency [Transfer Hold] oxyCODONE IR 5 mg tab(s) (ROXICODONE) 5 mg ORAL q 4 H PRN Or [Transfer Hold] oxyCODONE IR 10 mg tab(s) (ROXICODONE) 10 mg ORAL q 4 H PRN [Transfer Hold] NaCl 0.9% iv flush bag 20 mL INTRAVENOUS PRN [Transfer Hold] acetaminophen 650 mg tab(s) (TYLENOL) 650 mg ORAL q 6 H PRN [Transfer Hold] LORazepam 0.5 mg tab(s) (ATIVAN) 0.5 mg ORAL TID PRN [Transfer Hold] atenolol 50 mg tab(s) (TENORMIN) 50 mg ORAL BID [Transfer Hold] ipratropium-albuterol 3 mL nebulizer solution (DUONEB) 3 mL INHALATION q 6 H PRN [Transfer Hold] sodium chloride 3 % 4 mL (NEBUSAL) 4 mL INHALATION BID [Transfer Hold] pantoprazole DR 40 mg tab(s) (PROTONIX) 40 mg ORAL DAILY [Transfer Hold] prochlorperazine 10 mg tab(s) (COMPAZINE) 10 mg ORAL q 8 H PRN [Transfer Hold] escitalopram oxalate 10 mg tab(s) (LEXAPRO) 10 mg ORAL DAILY [Transfer Hold] traZODone 100 mg tab(s) (DESYREL) 100 mg ORAL AT BEDTIME PRN [Transfer Hold] cyclobenzaprine 10 mg tab(s) (FLEXERIL) 10 mg ORAL BID PRN [Transfer Hold] gabapentin 600 mg cap(s) (NEURONTIN) 600 mg ORAL TID [Transfer Hold] levothyroxine 75 mcg tab(s) (SYNTHROID) 75 mcg ORAL DAILY [Transfer Hold] cholecalciferol 1,000 Units tab(s) (VITAMIN D3) 1,000 Units ORAL DAILY [Transfer Hold] B Complex-Vitamin C-Folic Acid 1 tablet tab(s) (HALEIGH-VIT) 1 tablet ORAL DAILY [COMPLETED] potassium chloride ER 40 mEq tab(s) (KLOR-CON) 40 mEq ORAL ONCE [Transfer Hold] influenza vaccine ts 45 mcg (Patients 6 months to 64 years) (PF) 0.5 mL injection (FLUZONE ) 0.5 mL INTRAMUSCULAR ONCE (IMMUNIZATION) Outpatient Medications as of 12/20/2023 Medication Sig escitalopram oxalate (LEXAPRO) 10 mg tablet Take 1 tablet by mouth once daily. oxyCODONE IR (ROXICODONE) 10 mg tab Take 1 tablet by mouth two times a day as needed for pain for up to 30 days. cyclobenzaprine (FLEXERIL) 10 mg tablet Take 1 tablet by mouth two times a day as needed for muscle spasm. sodium chloride (NEBUSAL) 3 % nebulizer solution Use 4 mL via nebulizer two times a day. traZODone (DESYREL) 100 mg tablet Take 100 mg by mouth at bedtime as needed. AT BEDTIME. tolterodine ER (DETROL LA) 2 mg 24 hr capsule Take 2 mg by mouth once daily. gabapentin (NEURONTIN) 300 mg capsule Take 2 capsules by mouth three times a day for 90 days. ipratropium-albuterol (DUONEB) 0.5 mg-3 mg(2.5 mg base)/3 mL nebu inhale contents of 1 vial ( 3 MILLILITERS ) in nebulizer by mouth and INTO THE LUNGS every 6 hours if needed for wheezing or shortness of breath prochlorperazine (COMPAZINE) 10 (more content not included)... Normal [facility] ASPERGILLUS GALACTOMANNAN BA Ryan 12-20-2023 ASPER. AG BAL,QUAL Negative Normal Negative [facility] ospital Comment on above: Order Comment: Speci men Type: SPECIMEN OBTAINED BY LAVAGEOrdering Facility: [facility] Address: [address] [place] [address] Result Comment: Aspe rgillus Galactomannan antigen assay is used as an aid in diagnosis of invasive aspergillosis in immunocompromised individuals especially in post-stem cell transplant, hematological malignancies on chemotherapy, and HIV-positive patients with very low CD4 T-cell counts. The test may also be used in disease prognostication and for monitoring response to anti-fungal therapy. False positive and false negative results are not uncommon. Clinical and radiological correlation is required. Performed By: #### A SGALB ####[facility] [id number] [place] [address] [place] ASPERGILLUS GALACTOMANNAN 0.07 Index Value Normal <=0.49 [facility] Comment on above: Order Comment: Speci men Type: SPECIMEN OBTAINED BY LAVAGEOrdering Facility: [facility] Address: [address] [place] [address] Performed By: #### A SGALB ####[facility] LAB[facility] [id number] [place] [address] [place] BAL MANUAL DIFFon 12-20-2023 DIF TTL, BA LAVAGE 100 cells counted Normal [facility] Comment on above: Order Comment: Speci men Type: SPECIMEN OBTAINED BY LAVAGEOrdering Facility: [facility] Address: [address] [place] [address] Performed By: #### B LOS [id number] ####[facility] LABCLIA [id number] [place] [address] [place] LYMPH%, BA LAVAGE 18 % Normal [facility] Comment on above: Order Comment: Speci men Type: SPECIMEN OBTAINED BY LAVAGEOrdering Facility: [facility] Address: [facility] [place] [address] Performed By: #### Edwin MADISON [id number] ####[facility] LAB[facility] [id number] [place] [address] [place] MACRO%, BA LAVAGE 79 % Normal [facility] Comment on above: Order Comment: Speci men Type: SPECIMEN OBTAINED BY LAVAGEOrdering Facility: [facility] Address: [address] [place] [address] Performed By: #### Edwin MADISON [id number] ####[facility] [id number] [place] [address] [place] NEUT%, BA LAVAGE 3 % Normal [facility] Comment on above: Order Comment: Speci men Type: SPECIMEN OBTAINED BY LAVAGEOrdering Facility: [facility] Address: [address] [place] [address] Performed By: #### Edwin MADISON [id number] ####[facility] [id number] [place] [address] [place] BAL ROUTINE BFLon 12-20-2023 BAL COMMENT Normal [facility] Comment on above: Order Comment: Speci men Type: SPECIMEN OBTAINED BY LAVAGEOrdering Facility: [facility] Address: [address] [place] [address] Result Comment: Coun t may be inaccurate due to Disintegration Performed By: #### Edwin MADISON [id number] ####[facility] [id number] [place] [address] [place] Clarity (Unsp spec) Clear Normal Clear [facility] Comment on above: Order Comment: Speci men Type: SPECIMEN OBTAINED BY LAVAGEOrdering Facility: [facility] Address: [address] [place] [address] Performed By: #### Edwin MADISON [id number] ####[facility] [id number] [place] [address] [place] Color (Bronch spec) Colorless Normal Colorless [facility] Comment on above: Order Comment: Speci men Type: SPECIMEN OBTAINED BY LAVAGEOrdering Facility: [facility] Address: [address] [place] [address] Performed By: #### Edwin MADISON, [id number] ####[facility] [id number] [place] [address] [place] RBC LM.HPF (BAL) [#/Area] 123 /uL Normal Reference range not established. [facility] Comment on above: Order Comment: Speci men Type: SPECIMEN OBTAINED BY LAVAGEOrdering Facility: [facility] Address: [address] [place] [address] Performed By: #### Edwin MADISON, [id number] ####[facility] [id number] [place] [address] [place] WBC Manual cnt (Bronch spec) [#/Vol] 180 /uL Normal Reference range not established. [facility] Comment on above: Order Comment: Speci men Type: SPECIMEN OBTAINED BY LAVAGEOrdering Facility: [facility] Address: [address] [place] [address] Performed By: #### Edwin MADISON, [id number] ####[facility] [id number] [place] [address] [place] Bacteria BAL Aerobe Culton 1 02-18-2023 Bacteria identified Aer cx Nom (BAL) CULTURE, BRONCH: No growth 2 days GRAM STAIN: No organisms seen Rare Polymorphonuclear leukocytes Gram stain performed on cytospun specimen. Normal [facility] Comment on above: Performed By: #### 4 3441-5, 580-1, 84223-1 ####[facility] [id number] [place] [address] [place] Basic metabolic 2000 panelon 12-20-2023 Anion gap [Moles/Vol] 9 mmol/L Normal 8-15 [facility] Comment on above: Order Comment: Speci men Type: BLOOD SPECIMENOrdering Facility: [facility] Address: [address] [place] [address] Performed By: #### 2 4321-2 ####[facility]OR[facility]ORYIA [id number] [place] [address] [place] Calcium [Mass/Vol] 9.8 mg/dL Normal 8.5-10.2 [facility] Comment on above: Order Comment: Speci men Type: BLOOD SPECIMENOrdering Facility: [facility] Address: [address] [place] [address] Performed By: #### 2 4321-2 ####[facility]ORYIA [id number] [place] [address] [place] Chloride [Moles/Vol] 103 mmol/L Normal 98-107 [facility] Comment on above: Order Comment: Speci men Type: BLOOD SPECIMENOrdering Facility: [facility] Address: [address] [place] [address] Performed By: #### 2 4321-2 ####[facility]ORY[facility] [id number] [place] [address] [place] CO2 [Moles/Vol] 30 mmol/L Normal 22-30 [facility] Comment on above: Order Comment: Speci men Type: BLOOD SPECIMENOrdering Facility: [facility] Address: [address] [place] [address] Performed By: #### 2 4321-2 ####[facility] [id number] [place] [address] [place] Creatinine [Mass/Vol] 0.75 mg/dL Normal 0.58-0.96 [facility] Comment on above: Order Comment: Speci men Type: BLOOD SPECIMENOrdering Facility: [facility] Address: [address] [place] [address] Performed By: #### 2 4321-2 ####[facility]ORY[facility] [id number] [place] [address] [place] Creatinine and Glomerular filtration rate.predicted panel (S/P/Bld) 103 mL/min/1.73m??? Normal >=60 [facility] l Comment on above: Order Comment: Nicole toribio Type: BLOOD SPECIMENOrdering Facility: [facility] Address: [address] [place] [address] Result Comment: Prunima mated Glomerular Filtration Rate (eGFR) is calculated [...] reflect actual GFR. Performed By: #### 2 4321-2 ####[facility]ORATORYCLIA [id number] [facility] [place] [address] [place] Glucose [Mass/Vol] 106 mg/dL High 74-99 [facility] Comment on above: Order Comment: Nicole toribio Type: BLOOD SPECIMENOrdering Facility: [facility] Address: [address] [place] [address] Result Comment: The [place] [employer] Association (ADA) provides guidance for cutoff [...] Standards of Medical Care in Diabetes 2016, [place] [employer]. Diabetes Care. 2016.39(Suppl 1). Performed By: #### 2 4321-2 ####[facility]ATORYCLIA [id number] [facility] [place] [address] [place] Potassium [Moles/Vol] 4.0 mmol/L Normal 3.7-5.1 [facility] Comment on above: Order Comment: Speci men Type: BLOOD SPECIMENOrdering Facility: [facility] Address: [address] [place] [address] Performed By: #### 2 4321-2 ####[facility]ITAL[facility] [id number] [place] [address] [place] Sodium [Moles/Vol] 142 mmol/L Normal 136-144 [facility]ital Comment on above: Order Comment: Speci men Type: BLOOD SPECIMENOrdering Facility: [facility] Address: [address] [place] [address] Performed By: #### 2 4321-2 ####[facility]ITALIA [id number] [place] [address] [place] Urea nitrogen [Mass/Vol] 13 mg/dL Normal 7-21 [facility] Comment on above: Order Comment: Speci men Type: BLOOD SPECIMENOrdering Facility: [facility] Address: [address] [place] [address] Performed By: #### 2 4321-2 ####[facility]PITALIA [id number] [place] [address] [facility] [place] CBC panel Auto (Bld)on 12-19 Erythrocyte distribution width (RBC) [Ratio] 13.2 % Normal 11.5-15.0 [facility] Comment on above: Order Comment: Speci men Type: BLOOD SPECIMENOrdering Facility: [facility] Address: [address] [place] [address] Performed By: #### 5 8410-2 ####[facility] [id number] [place] [address] [facility] [place] Hematocrit (Bld) [Volume fraction] 44.7 % Normal 36.0-46.0 [facility] Comment on above: Order Comment: Speci men Type: BLOOD SPECIMENOrdering Facility: [facility] Address: [address] [place] [address] Performed By: #### 5 8410-2 ####[facility] [id number] [place] [address] [place] Hemoglobin (Bld) [Mass/Vol] 14.4 g/dL Normal 11.5-15.5 [facility] Comment on above: Order Comment: Speci men Type: BLOOD SPECIMENOrdering Facility: [facility] Address: [address] [place] [address] Performed By: #### 5 8410-2 ####[facility]ATORYCLIA [id number] [address] [place] MCH (RBC) [Entitic mass] 31.0 pg Normal 26.0-34.0 [facility] Comment on above: Order Comment: Speci men Type: BLOOD SPECIMENOrdering Facility: [facility] Address: [address] [place] [address] Performed By: #### 5 8410-2 ####[facility]ITALIA [id number] [address] [place] MCHC (RBC) [Mass/Vol] 32.2 g/dL Normal 30.5-36.0 [facility] Comment on above: Order Comment: Speci men Type: BLOOD SPECIMENOrdering Facility: [facility] Address: [address] [place] [address] Performed By: #### 5 8410-2 ####[facility]IA [id number] [address] [place] MCV (RBC) [Entitic vol] 96.1 fL Normal 80.0-100.0 [facility] Comment on above: Order Comment: Speci men Type: BLOOD SPECIMENOrdering Facility: [facility] Address: [address] [place] [address] Performed By: #### 5 8410-2 ####[facility] [id number] [address] [place] Nucleated RBC (Bld) [#/Vol] 10*3/uL Normal <0.01 [facility] Comment on above: Order Comment: Speci men Type: BLOOD SPECIMENOrdering Facility: [facility] Address: [address] [place] [address] Performed By: #### 5 8410-2 ####[facility]ORATORYCLIA [id number] [facility] [place] [address] [place] Platelet mean volume (Bld) [Entitic vol] 9.4 fL Normal 9.0-12.7 [facility] Comment on above: Order Comment: Speci men Type: BLOOD SPECIMENOrdering Facility: [facility] Address: [address] [place] [address] Performed By: #### 5 8410-2 ####[facility] [id number] [place] [address] [place] Platelets (Bld) [#/Vol] 325 10*3/uL Normal 150-400 [facility] Comment on above: Order Comment: Speci men Type: BLOOD SPECIMENOrdering Facility: [facility] Address: [address] [place] [address] Performed By: #### 5 8410-2 ####[facility] [id number] [place] [address] [place] RBC (Bld) [#/Vol] 4.65 10*6/uL Normal 3.90-5.20 [facility] Comment on above: Order Comment: Speci men Type: BLOOD SPECIMENOrdering Facility: [facility] Address: [address] [place] [address] Performed By: #### 5 8410-2 ####[facility] [id number] [facility] [place] [address] [place] WBC (Bld) [#/Vol] 7.52 10*3/uL Normal 3.70-11.00 [facility] Comment on above: Order Comment: Speci men Type: BLOOD SPECIMENOrdering Facility: [facility] Address: [address] [place] [address] Performed By: #### 5 8410-2 ####[facility]ITALIA [id number] [facility] [place] [address] [facility] [place] CNDSon 12-20-2023 CNDS HNO ID: [id number] Author: CARLOS CASTELLON MD Service: Hospital Medicine Author Type: Physician Type: Discharge Summary Filed: 12/20/2023 15:22 Note Text: DISCHARGE SUMMARY PATIENT NAME: Celso Weller ADMISSION DATE: 12/18/2023 DISCHARGE DATE: 12/20/2023 ATTENDING PHYSICIAN: Carlos Castellon MD Code Status: Full Code PCP: Bee Vail MD Highest Readmission Risk Score: 10 The 30 day readmissions risk score is derived from an internally validated risk model which evaluates patient level characteristics, utilization history, medication orders and lab results up until the day of discharge. Patients with a score of 40 or above are considered highest risk for readmission. Specific patient level drivers will be listed at the bottom of the summary. 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) (POA: Yes) Chemotherapy-induced neuropathy (HCC) (POA: Yes) HOSPITAL COURSE: Celso Weller is a 43 year old female presented with PMHx Lymphoma (completed Immunotherapy in September 2023), pulmonary embolism in 2012 on Xarelto, Depression/Anxiety, GERD, chemotherapy-induced neuropathy, recurrent pneumonia (most recent episode on October, treated at [facility]) with persistent shortness of breath, new oxygen requirements 3 L with exertion, ground glass changes on most recent PET/CT who was sent in to the ED by 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 Patient underwent bronch without complications. Specimens were collected and pending at the time of discharge. Patient stable for d/c with OP pulm follow up for results. OPERATIONS/PROCEDURE DURING THIS HOSPITALIZATION: Procedure(s) (LRB): BRONCHOSCOPY FLEX W/ ALVEOLAR LAVAGE ADULT (N/A) None Bronchoscopy CONSULTS DURING HOSPITALIZATION: Treatment Team: Attending Provider: Carlos Castellon MD Consulting: Nova Brink RN PATIENT CONDITION AT DISCHARGE: Stable DISCHARGE DISPOSITION: Home with Self Care Discharge Physical Exam: VITAL SIGNS: BP 104/76 Pulse 89 Temp 36.1 ?C (97 ?F) (Temporal) Resp 13 Ht 182.9 cm (6') Wt 107 kg (235 lb 14.3 oz) LMP 11/18/2012 SpO2 97% BMI 31.99 kg/m? GENERAL: Alert, no distress, cooperative LUNGS: Lungs clear to auscultation, Good diaphragmatic excursion CARDIAC: Normal S1 and S2; no rubs, murmurs, or gallops ABDOMEN: Abdomen soft, non-tender, BS normal, No masses or organomegaly EXTREMITIES: Extremities normal, no deformities, edema, clubbing or skin discoloration. Good capillary refill. NEURO: Cranial nerves II-XII intact WOUND/SURGICAL SITE CARE: None SUPPLIES OR EQUIPMENT: None DIET: Resume pre-hospital diet ACTIVITY AND EXERCISE: Resume pre-hospital activity FOLLOW UP APPOINTMENTS: Future Appointments Date Time Provider Department Center 12/23/2023 2:30 PM Irene Han APRN.SEWAGE DISPOSAL ENGINEER PMAMHE [facility] 12/26/2023 8:30 AM Kodi Pantoja MD PAINLN [facility] 12/27/2023 7:45 AM ARRIVAL TIME RADIOLOGY [facility] 01/03/2024 1:30 PM [facility] 01/03/2024 2:20 PM Korina Vega MD CARINF [facility] 01/14/2024 8:30 AM 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 APRN.SEWAGE DISPOSAL ENGINEER PULMLO [facility] 02/10/2024 2:45 PM LAB HEMRAD STEFF [facility] 02/10/2024 3:00 PM Ruperto Ledezma MD HEMASA [facility] 04/27/2024 10:15 AM ARRIVAL TIME RADIOLOGY PETSAN [facility] 05/04/2024 10:00 AM Ruperto Ledezma MD HEMASA [facility] ALLERGIES Allergen Reactions Chlorhexidine Itching Severe skin irritation. Had used for central line care Sulfa (Sulfonamide * Rash DISCHARGE MEDICATION: Medication List CONTINUE taking these medications atenolol 50 mg tablet Commonly known as: TENORMIN take 1 tablet by mouth twice a day B COMPLEX PLUS VITAMIN C 89-69-31-5-300 mg Cap Generic drug: Vitamin B Comp and C No.3 Take 1 tablet by mouth once daily. Biotin 2,500 mcg Cap cyclobenzaprine 10 mg tablet Commonly known as: FLEXERIL Take 1 tablet by mouth two times a day as needed for muscle spasm. escitalopram oxalate 10 mg tablet Commonly known as: LEXAPRO Take 1 tablet by mouth once daily. fluocinonide 0.05 % cream Commonly known as: LIDEX apply to affected area ON THE RIGHT HAND and legs TWICE A DAY gabapentin 300 mg capsule Commonly known as: NEURONTIN Take 2 capsules by mouth three times a day for 90 days. ipratropium-albuterol 0.5 mg-3 mg(2.5 mg base)/3 mL Nebu Commonly known as: DUONEB in (more content not included)... 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 Worsening mosaic attenuation with tiny nodules, more bronchiolitis, query hypersensitivity pneumonitis (has chicken) vs non-exposure related, pembro has a report in OB. # Lymphoma s/p RT, Autologous bone marrow transplantation status S/p high-dose busulfan, etoposide, and cyclophosphamide with autologous stem cell transplantation February 2013. Relapse, she last received pembrolizumab on 05/01/2022. # H/o PE, DVT in 2012, PH on echo 02/2023, RVSP 51. Bronch today, no immediate complication. Very minimal whitish secretion, suction. RUL BAL for cultures, cytology. PLAN: - Dr. Carver requested a bronch with BAL immunocompromised protocol. - She already had home O2 set up yesterday. Can do walking desat before D/C for her to know the O2 flow she needs. - I discussed with Dr. Carver today. An additional option to consider is exploring the pulmonary hypertension component and the potential role of PAH therapy. Regarding the airway issue, she has a history of bronchoscopy with pneumothorax and is not interested in further biopsy. Chronic azithromycin may be an option to try. No plan for chemo or immunotherapy per patient. I think non granulomatous fibrosing mediastinitis is on thing to consider if CT continues to progress. SUBJECTIVE No overnight events. MEDICATIONS: Current Facility-Administered Medications Medication Dose Route Frequency [Transfer Hold] oxyCODONE IR 5 mg tab(s) (ROXICODONE) 5 mg ORAL q 4 H PRN Or [Transfer Hold] oxyCODONE IR 10 mg tab(s) (ROXICODONE) 10 mg ORAL q 4 H PRN lidocaine urojet 2 % topical gel (GLYDO) X (OR/PROCEDURE) PRN lidocaine 20 mg/mL (2 %) injection (XYLOCAINE) X (OR/PROCEDURE) PRN NaCl 0.9% irrigation solution X (OR/PROCEDURE) PRN [Transfer Hold] NaCl 0.9% iv flush bag 20 mL INTRAVENOUS PRN [Transfer Hold] acetaminophen 650 mg tab(s) (TYLENOL) 650 mg ORAL q 6 H PRN [Transfer Hold] LORazepam 0.5 mg tab(s) (ATIVAN) 0.5 mg ORAL TID PRN [Transfer Hold] atenolol 50 mg tab(s) (TENORMIN) 50 mg ORAL BID [Transfer Hold] ipratropium-albuterol 3 mL nebulizer solution (DUONEB) 3 mL INHALATION q 6 H PRN [Transfer Hold] sodium chloride 3 % 4 mL (NEBUSAL) 4 mL INHALATION BID [Transfer Hold] pantoprazole DR 40 mg tab(s) (PROTONIX) 40 mg ORAL DAILY [Transfer Hold] prochlorperazine 10 mg tab(s) (COMPAZINE) 10 mg ORAL q 8 H PRN [Transfer Hold] escitalopram oxalate 10 mg tab(s) (LEXAPRO) 10 mg ORAL DAILY [Transfer Hold] traZODone 100 mg tab(s) (DESYREL) 100 mg ORAL AT BEDTIME PRN [Transfer Hold] cyclobenzaprine 10 mg tab(s) (FLEXERIL) 10 mg ORAL BID PRN [Transfer Hold] gabapentin 600 mg cap(s) (NEURONTIN) 600 mg ORAL TID [Transfer Hold] levothyroxine 75 mcg tab(s) (SYNTHROID) 75 mcg ORAL DAILY [Transfer Hold] cholecalciferol 1,000 Units tab(s) (VITAMIN D3) 1,000 Units ORAL DAILY [Transfer Hold] B Complex-Vitamin C-Folic Acid 1 tablet tab(s) (HALEIGH-VIT) 1 tablet ORAL DAILY [Transfer Hold] influenza vaccine ts 45 mcg (Patients 6 months to 64 years) (PF) 0.5 mL injection (FLUZONE ) 0.5 mL INTRAMUSCULAR ONCE (IMMUNIZATION) CURRENT ALLERGIES: ALLERGIES Allergen Reactions Chlorhexidine Itching Severe skin irritation. Had used for central line care Sulfa (Sulfonamide * Rash Intake/Output Summary (Last 24 hours) at 12/20/2023 1403 Last data filed at 12/20/2023 1356 Gross per 24 hour Intake 510 ml Output -- Net 510 ml OBJECTIVE PHYSICAL EXAM: BP 123/85 Pulse 96 Temp (Src) 97.1 (Temporal) Resp 18 Ht 6' 0 (1.83m) Wt 235 lb 14.3 oz (107.0kg) SpO2 98% LMP 11/18/2012 BMI 31.99 kg/(m2). O2 Therapy: Room Air General appearance: in no acute distress HEENT: Anicteric sclera. Respiratory: Respirations are non labored no accessory muscle use. Cardiovascular: Regular rate and rhythm Abdomen: Soft, no tenderness Extremities: No peripheral edema. Psych: Cooperative with exam, answers questions appropriately. Neuro: AANDO x 3. DATA Diagnostic tests reviewed for today's visit, films/specimens were personally reviewed by me: Most recent labs and imaging results. Total time spent in patient care includes but is not limited to patient/ family discussions, collaborative discussions with other healthcare providers, review of medical records, review of laboratory tests, radiology images/ results, microbiology and pathology data. Portions of this note may have been copied and pasted. Anything that was copied and pasted (more content not included)... Normal [facility] CYTOLOGY NON-GYNon 4 CASE REPORT [facility] Comment on above: Order Comment: Speci men Type: SPECIMEN OBTAINED BY LAVAGEOrdering Facility: [facility] Address: [address] [place] [address] Result Comment: [facility] Cytology Report Case: [id number] Authorizing Provider: Quincy Kang MD Collected: 12/20/2023 01:53 PM Ordering Location: Procedures Received: 12/20/2023 02:31 PM Pathologist: Rosmery Franz MD Specimen: Bronchoalveolar Lavage, Right upper lobe Performed By: #### C YTONON ####[facility] [id number] [place] [address] [place] CLINICAL HISTORY Normal [facility] pital Comment on above: Order Comment: Speci men Type: SPECIMEN OBTAINED BY LAVAGEOrdering Facility: [facility] Address: [address] [place] [address] Result Comment: Pre- op diagnosis: Pulmonary infiltrates [R91.8] Performed By: #### C YTONON ####[facility] [id number] [address] [place] FINAL DIAGNOSIS Normal [facility] Comment on above: Order Comment: Speci men Type: SPECIMEN OBTAINED BY LAVAGEOrdering Facility: [facility] Address: [address] [place] [address] Result Comment: A - Bronchoalveolar Lavage, Lavage - Right upper lobe Negative for malignant cells. Performed By: #### C YTONON ####[facility] [id number] [address] [place] FINAL PERFORMING LAB Normal [facility] Comment on above: Order Comment: Speci men Type: SPECIMEN OBTAINED BY LAVAGEOrdering Facility: [facility] Address: [address] [place] [address] Result Comment: Tech nical component, filler leaf cutter long screening performed at [facility], [address] [place] [address] CLIA# [id number] Diagnostic interpretation performed at [facility], [address] [place], [place] [id number] CLIA# [id number] Broomcorn Scraper: Pavan Palm M.D. Performed By: #### C YTONON ####[facility] [id number] [place] [address] [place] GROSS DESCRIPTION Normal [facility] Comment on above: Order Comment: Speci men Type: SPECIMEN OBTAINED BY LAVAGEOrdering Facility: [facility] Address: [address] [place] [address] Result Comment: A. B ronchoalveolar Lavage 20 cc cloudy colorless fluid . ThinPrep prepared. Performed By: #### C YTONON ####[facility] [id number] [place] [address] [place] ORDER COMMENT Normal [facility] Comment on above: Order Comment: Speci men Type: SPECIMEN OBTAINED BY LAVAGEOrdering Facility: [facility] Address: [address] [place] [address] Result Comment: Pre- op diagnosis: Pulmonary infiltrates [R91.8] Performed By: #### C YTONON ####[facility] [id number] [address] [place] Fungus Spec Culton Fungus identified Cx Nom (Unsp spec) CULTURE, FUNGAL: No Fungus isolated after 28 days Normal [facility] Comment on above: Performed By: #### 4 3441-5, 580-1, 48805-2 ####[facility] [id number] [place] [address] [place] HCG Preg Ur Qlon 12-20-2023 HCG ( test) Ql (U) Negative Normal Negative [facility] Comment on above: Order Comment: Speci men Type: URINE SPECIMENOrdering Facility: [facility] Address: [address] [place] [address] Result Comment: This test is intended to aid in the early detection of . Very dilute urine samples, as indicated by a low specific gravity, may not contain retail service representative levels of hCG. This test detects [...] for . Performed By: #### 2 106-3 ####[facility]ORATORYCLIA [id number] [facility] [place] [address] [place] [facility] HISTORY PHYSICALon HISTORY PHYSICAL HNO ID: [id number] Author: QUINCY KANG MD Service: Pulmonary Disease Author Type: Physician Type: H&P Filed: 12/20/2023 10:27 Note Text: UPDATED HISTORY AND PHYSICAL EXAMINATION SERVICE DATE: 12/20/2023 SERVICE TIME: 10 AM SENSITIVE EXAMINATION CONSENT: The sensitive examination was discussed with the Patient or Patient's Authorized Perinatal Coordinator. As applicable, any other physician, advance practice provider, medical student, or other health professional student that will be observing or involved in the sensitive examination for educational or training purposes was discussed with the Patient or Authorized Perinatal Coordinator. The Patient or Authorized Perinatal Coordinator has agreed to proceed with the sensitive examination. (Sensitive examination includes inspection and/or palpation of the breasts, pelvis, prostate and anorectal regions) PHYSICAL EXAM MUST BE COMPLETED ON ADMISSION The History and Physical (completed in the past 30 days) has been reviewed and the patient has been examined. The contents accurately reflect the patient's condition with the following additions or revisions since the HANDP was completed. Examination indicates no changes. This HANDP can be found in the Electronic Medical Record dated 12/19/23. SIGNATURE: Quincy Kang MD PATIENT NAME: Celso Weller DATE: December 20, 2023 TIME: 10:27 AM Normal [facility] L. pneumophila DNA TARA+probe Ql (Unsp spec)on 12-20-2023 Legionella spp Spec Ql TARA+probe Not detected Normal Not detected [facility] Comment on above: Order Comment: Speci men Type: SPECIMEN OBTAINED BY LAVAGEOrdering Facility: [facility] Address: [address] [place] [address] [place] [address] Performed By: #### 2 1363-7 ####[facility] [id number] [place] [address] [place] Microorganism Spec Culton Microorganism identified Cx Nom (Unsp spec) CULTURE, AFB: No Acid Fast Bacilli isolated after 42 days AFB STAIN: No acid fast bacilli seen by fluorochrome stain Normal [facility] Comment on above: Performed By: #### 4 3441-5, 580-1, 98009-1 ####[facility] [id number] [address] [place] PNEUMOCYSTIS JIROVECII PCRon 12-20-2023 P. jiroveci DNA TARA+probe (Unsp spec) [#/Vol] Not detected Normal Pneumocystis jirovecii Not Detected by PCR [facility] Comment on above: Order Comment: Speci men Type: SPECIMEN OBTAINED BY LAVAGEOrdering Facility: [facility] Address: [address] [place] [address] Performed By: #### P JPCR ####[facility] LAB[facility] [id number] [place] [address] [place] PT panel Coag (PPP)on 2023 INR Coag (PPP) [Relative time] 1.0 {INR} Normal 0.9-1.3 [facility] Comment on above: Order Comment: Speci men Type: BLOOD SPECIMENOrdering Facility: [facility] Address: [address] [place] [address] Result Comment: Abbi min K Antagonist (VKA) Therapeutic Range: INR 2 to 3 (Target INR of 2.5) Note: For patients treated with VKA drugs, such as warfarin, the [place] [employer] 2012 Guideline recommends a therapeutic INR range of 2 to 3 (target INR of 2.5). This recommendation includes high-risk patients with antiphospholipid syndrome with previous arterial or venous thromboembolism, current-generation mechanical or bioprosthetic aortic heart valve replacement. Note: Patients with mechanical aortic valve replacement and additional risk factors for thromboembolic events (atrial fibrillation, previous thromboembolism, LV dysfunction, hypercoagulable conditions) or an older generation mechanical AVR (i.e., ball in-Cage) or any mechanical MVR should have a INR therapeutic range of 2.5 to 3.5 (target INR of 3). Angelic GH, et al. Chest 2012, 141:7S-47S Keiry RA, et al. [facility] 2017, 70: 252-289 Performed By: #### 3 4528-0 ####[facility] H[facility]PITALIA [id number] [place] [address] [place] PT Coag (PPP) [Time] 10.6 s Normal 9.7-13.0 [facility] Comment on above: Order Comment: Speci men Type: BLOOD SPECIMENOrdering Facility: [facility] Address: [address] [place] [address] Performed By: #### 3 4528-0 ####[facility]PITALIA [id number] [place] [id number] [place] Respiratory pathogens DNA an d RNA panel TARA+probe (Nph)on 12-20-2023 Adenovirus hexon gene TARA+probe Ql (Nph) Not detected Normal Not detected [facility] Comment on above: Order Comment: Speci men Type: SPECIMEN OBTAINED BY LAVAGEOrdering Facility: [facility] Address: [address] [place] [address] Performed By: #### 7 8922-2 ####[facility] [id number] [place] [address] [place] C. pneumoniae DNA TARA+probe Ql (Unsp spec) Not detected Normal Not detected [facility] Comment on above: Order Comment: Speci men Type: SPECIMEN OBTAINED BY LAVAGEOrdering Facility: [facility] Address: [address] [place] [address] Performed By: #### 7 8922-2 ####[facility] [id number] [place] [address] [place] FLUAV RNA TARA+probe Ql (Unsp spec) Not detected Normal Not detected [facility] Comment on above: Order Comment: Speci men Type: SPECIMEN OBTAINED BY LAVAGEOrdering Facility: [facility] Address: [address] [place] [address] Performed By: #### 7 8922-2 ####[facility] [id number] [place] [address] [place] FLUBV RNA TARA+probe Ql (Unsp spec) Not detected Normal Not detected [facility] Comment on above: Order Comment: Speci men Type: SPECIMEN OBTAINED BY LAVAGEOrdering Facility: [facility] Address: [address] [place] [address] Performed By: #### 7 8922-2 ####[facility] [id number] [place] [address] [place] HCoV 229E+OC43 RNA TARA+probe Ql (Nph) Not detected Normal Not detected [facility] Comment on above: Order Comment: Speci men Type: SPECIMEN OBTAINED BY LAVAGEOrdering Facility: [facility] Address: [address] [place] [address] Performed By: #### 7 8922-2 ####[facility] [id number] [place] [address] [place] HCoV HKU1 RNA TARA+probe Ql (Unsp spec) Not detected Normal Not detected [facility] Comment on above: Order Comment: Speci men Type: SPECIMEN OBTAINED BY LAVAGEOrdering Facility: [facility] Address: [address] [place] [address] Performed By: #### 7 8922-2 ####[facility] [id number] [place] [address] [place] HCoV NL63 RNA TARA+non-probe Ql (Nph) Not detected Normal Not detected [facility] Comment on above: Order Comment: Speci men Type: SPECIMEN OBTAINED BY LAVAGEOrdering Facility: [facility] Address: [address] [place] [address] Performed By: #### 7 8922-2 ####[facility] [id number] [place] [address] [place] HCoV OC43 RNA TARA+probe Ql (Unsp spec) Not detected Normal Not detected [facility] Comment on above: Order Comment: Speci men Type: SPECIMEN OBTAINED BY LAVAGEOrdering Facility: [facility] Address: [address] [place] [address] Performed By: #### 7 8922-2 ####[facility] [id number] [place] [address] [place] hMPV RNA TARA+probe Ql (Unsp spec) Not detected Normal Not detected [facility] Comment on above: Order Comment: Speci men Type: SPECIMEN OBTAINED BY LAVAGEOrdering Facility: [facility] Address: [address] [place] [address] Performed By: #### 7 8922-2 ####[facility] [id number] [place] [address] [place] M. pneumoniae DNA TARA+probe Ql (Unsp spec) Not detected Normal Not detected [facility] Comment on above: Order Comment: Speci men Type: SPECIMEN OBTAINED BY LAVAGEOrdering Facility: [facility] Address: [address] [place] [address] Performed By: #### 7 8922-2 ####[facility] [id number] [place] [address] [place] Parainfluenza virus 1 RNA TARA+probe Ql (Unsp spec) Not detected Normal Not detected [facility] Comment on above: Order Comment: Speci men Type: SPECIMEN OBTAINED BY LAVAGEOrdering Facility: [facility] Address: [address] [place] [address] Performed By: #### 7 8922-2 ####[facility] [id number] [place] [address] [place] Parainfluenza virus 2 RNA TARA+probe Ql (Unsp spec) Not detected Normal Not detected [facility] Comment on above: Order Comment: Speci men Type: SPECIMEN OBTAINED BY LAVAGEOrdering Facility: [facility] Address: [address] [place] [address] Performed By: #### 7 8922-2 ####[facility] [id number] [place] [address] [place] Parainfluenza virus 3 RNA TARA+probe Ql (Unsp spec) Not detected Normal Not detected [facility] Comment on above: Order Comment: Speci men Type: SPECIMEN OBTAINED BY LAVAGEOrdering Facility: [facility] Address: [address] [place] [address] Performed By: #### 7 8922-2 ####[facility] [id number] [place] [address] [place] Parainfluenza virus 4 P gene TARA+probe Ql (Nph) Not detected Normal Not detected [facility] Comment on above: Order Comment: Speci men Type: SPECIMEN OBTAINED BY LAVAGEOrdering Facility: [facility] Address: [address] [place] [address] Performed By: #### 7 8922-2 ####[facility] [id number] [place] [address] [place] Rhinovirus 5' UTR RNA TARA+probe Ql (Nph) Not detected Normal Not detected [facility] Comment on above: Order Comment: Speci men Type: SPECIMEN OBTAINED BY LAVAGEOrdering Facility: [facility] Address: [address] [place] [address] Performed By: #### 7 8922-2 ####[facility] [id number] [place] [address] [place] RSV RNA TARA+probe Ql (Upper resp) Not detected Normal Not detected [facility] Comment on above: Order Comment: Speci men Type: SPECIMEN OBTAINED BY LAVAGEOrdering Facility: [facility] Address: [address] [place] [address] Performed By: #### 7 8922-2 ####[facility] [id number] [place] [address] [place] SARS-CoV-2 (COVID-19) RNA TARA+probe Ql (Unsp spec) Not detected Normal See comment [facility] Comment on above: Order Comment: Speci men Type: SPECIMEN OBTAINED BY LAVAGEOrdering Facility: [facility] Address: [address] [place] [address] Performed By: #### 7 8922-2 ####[facility] [id number] [place] [address] [place] Basic metabolic 2000 panelon 12-19-2023 Anion gap [Moles/Vol] 8 mmol/L Normal 8-15 [facility] Comment on above: Order Comment: Speci men Type: BLOOD SPECIMENOrdering Facility: [facility] Address: [address] [place] [address] Performed By: #### 2 4321-2, 42771-8 ####[facility]ORATORYCLIA [id number] [place] [address] [place] Calcium [Mass/Vol] 8.4 mg/dL Low 8.5-10.2 [facility] Comment on above: Order Comment: Speci men Type: BLOOD SPECIMENOrdering Facility: [facility] Address: [address] [place] [address] Performed By: #### 2 4321-2, 68537-7 ####[facility]ORATORYCLIA [id number] [place] [address] [place] Chloride [Moles/Vol] 109 mmol/L High 98-107 [facility] Comment on above: Order Comment: Speci men Type: BLOOD SPECIMENOrdering Facility: [facility] Address: [address] [place] [address] Performed By: #### 2 4321-2, 98735-7 ####[facility]ORATORYCLIA [id number] [place] [address] [place] CO2 [Moles/Vol] 27 mmol/L Normal 22-30 [facility] Comment on above: Order Comment: Speci men Type: BLOOD SPECIMENOrdering Facility: [facility] Address: [address] [place] [address] Performed By: #### 2 4321-2, 55780-3 ####[facility]ATORYCLIA [id number] [place] [address] [place] Creatinine [Mass/Vol] 0.63 mg/dL Normal 0.58-0.96 [facility] Comment on above: Order Comment: Nicole [facility] Type: BLOOD SPECIMENOrdering Facility: [facility] Address: [address] [place] [address] Performed By: #### 2 4321-2, 70900-8 ####[facility]ATORYCLIA [id number] [address] [place] Creatinine and Glomerular filtration rate.predicted panel (S/P/Bld) 114 mL/min/1.73m??? Normal >=60 [facility] Comment on above: Order Comment: [facility] Type: BLOOD SPECIMENOrdering Facility: [facility] Address: [address] [place] [address] Result Comment: Purnima mated Glomerular Filtration Rate [...] reflect actual GFR. Performed By: #### 2 4321-2, 56091-8 ####[facility]ATORYCLIA [id number] [place] [address] [place] Glucose [Mass/Vol] 106 mg/dL High 74-99 [facility] Comment on above: Order Comment: Nicole [facility] Type: BLOOD SPECIMENOrdering Facility: [facility] Address: [address] [place] [address] Result Comment: The [place] Diabetes Association (ADA) provides guidance for cutoff [...] Standards of Medical Care in Diabetes 2016, [place] [employer]. Diabetes Care. 2016.39(Suppl 1). Performed By: #### 2 4321-2, 80091-7 ####[facility]PITALIA [id number] [place] [address] [place] Potassium [Moles/Vol] 3.5 mmol/L Low 3.7-5.1 [facility] Comment on above: Order Comment: Nicole toribio Type: BLOOD SPECIMENOrdering Facility: [facility] Address: [address] [place] [address] Performed By: #### 2 4321-2, 24228-4 ####[facility]PITALIA [id number] [facility] [place] [address] [place] Sodium [Moles/Vol] 144 mmol/L Normal 136-144 [facility] Comment on above: Order Comment: Nicole toribio Type: BLOOD SPECIMENOrdering Facility: [facility] Address: [address] [place] [address] Performed By: #### 2 4321-2, 66585-7 ####[facility]IA [id number] [facility] [place] [address] [place] Urea nitrogen [Mass/Vol] 10 mg/dL Normal 7-21 [facility] Comment on above: Order Comment: Nicole toribio Type: BLOOD SPECIMENOrdering Facility: [facility] Address: [address] [place] [address] Performed By: #### 2 4321-2, 00736-2 ####[facility]ITALIA [id number] [place] [address] [place] CBC panel Auto (Bld)on 12-18 Erythrocyte distribution width (RBC) [Ratio] 13.2 % Normal 11.5-15.0 [facility] Comment on above: Order Comment: Speci men Type: BLOOD SPECIMENOrdering Facility: [facility] Address: [address] [place] [address] Performed By: #### 5 8410-2 ####[facility]ATORYCLIA [id number] [place] [address] [place] Hematocrit (Bld) [Volume fraction] 40.5 % Normal 36.0-46.0 [facility] Comment on above: Order Comment: Speci men Type: BLOOD SPECIMENOrdering Facility: [facility] Address: [address] [place] [address] Performed By: #### 5 8410-2 ####[facility]IA [id number] [place] [address] [place] Hemoglobin (Bld) [Mass/Vol] 13.6 g/dL Normal 11.5-15.5 [facility] Comment on above: Order Comment: Speci men Type: BLOOD SPECIMENOrdering Facility: [facility] Address: [address] [place] [address] Performed By: #### 5 8410-2 ####[facility]IA [id number] [place] [address] [place] MCH (RBC) [Entitic mass] 31.8 pg Normal 26.0-34.0 [facility] Comment on above: Order Comment: Speci men Type: BLOOD SPECIMENOrdering Facility: [facility] Address: [address] [place] [address] Performed By: #### 5 8410-2 ####[facility]ATORYIA [id number] [place] [id number] [place] MCHC (RBC) [Mass/Vol] 33.6 g/dL Normal 30.5-36.0 [facility] Comment on above: Order Comment: Speci men Type: BLOOD SPECIMENOrdering Facility: [facility] Address: [address] [place] [address] Performed By: #### 5 8410-2 ####[facility]ATORYCLIA [id number] [facility] [place] [address] [place] MCV (RBC) [Entitic vol] 94.6 fL Normal 80.0-100.0 [facility] Comment on above: Order Comment: Speci men Type: BLOOD SPECIMENOrdering Facility: [facility] Address: [address] [place] [address] Performed By: #### 5 8410-2 ####[facility] [id number] [place] [address] [facility] [place] Nucleated RBC (Bld) [#/Vol] 10*3/uL Normal <0.01 [facility] Comment on above: Order Comment: Speci men Type: BLOOD SPECIMENOrdering Facility: [facility] Address: [address] [place] [address] Performed By: #### 5 8410-2 ####[facility] [id number] [place] [address] [place] [address] [place] Platelet mean volume (Bld) [Entitic vol] 9.0 fL Normal 9.0-12.7 [facility] Comment on above: Order Comment: Speci men Type: BLOOD SPECIMENOrdering Facility: [facility] Address: [address] [place] [address] Performed By: #### 5 8410-2 ####[facility] [id number] [facility] [place] [address] [place] Platelets (Bld) [#/Vol] 285 10*3/uL Normal 150-400 [facility] Comment on above: Order Comment: Speci men Type: BLOOD SPECIMENOrdering Facility: [facility] Address: [address] [place] [address] Performed By: #### 5 8410-2 ####[facility]ORYIA [id number] [place] [address] [place] RBC (Bld) [#/Vol] 4.28 10*6/uL Normal 3.90-5.20 [facility] Comment on above: Order Comment: Speci malu Type: BLOOD SPECIMENOrdering Facility: [facility] Address: [address] [place] [address] Performed By: #### 5 8410-2 ####[facility]ORYCLIA [id number] [place] [address] [facility] WBC (Bld) [#/Vol] 6.04 10*3/uL Normal 3.70-11.00 [facility] Comment on above: Order Comment: Speci men Type: BLOOD SPECIMENOrdering Facility: [facility] Address: [address] [place] [address] Performed By: #### 5 8410-2 ####[facility]ATORYCLIA [id number] [place] [address] [facility] CONSULTon 12-19-2023 CONSULT HNO ID: [id number] Author: QUINCY KANG MD Service: Pulmonary Disease Author Type: Physician Type: Consults Filed: 12/19/2023 17:16 Note Text: [facility] INITIAL CONSULTATION NOTE Patient Name: Celso Weller REASON FOR CONSULT: Bronchoscopy is scheduled REQUESTING PHYSICIAN: Carlos Castellon MD CHIEF COMPLAINT: Sent from pulmonary clinic HISTORY OF PRESENT ILLNESS: Celso Weller is a 43 year old female, non smoker with a significant pulmonary history of restrictive lung disease, bronchiectasis, dysphagia was sent from pulmonary clinic for worsening symptoms, desaturation. Saw our team 12/17/23. She has been dealing with recurrent pneumonia, with the bouts of infection this year. Most recently treated at [facility] on 10/28. Since that time she has continued to feel poorly with cough, shortness of breath, fatigue. Not producing any phlegm. Dr. Carver requested a bronchoscopy with [facility]. They walked in the office today to better gauge her oxygen needs. Room air at rest 98 % Room air with exertion 82 % 2 L with exertion 86% 3L with exertion 88% 4L with exertion 93% CXR yesterday Similar chronic lung changes without acute abnormality. Covid/RSV/flu neg yesterday Old CT chest 10/29/23 Chronic postradiation changes in central region. Mosaic attenuation in the bilateral lung 10/2023 PAST MEDICAL HISTORY Diagnosis Date ASCUS favor [...] Date ENDOCERVICAL CURETTAGE 04/02/2017 HYSTEROSCOPY BX W/WO DANDC 04/02/2017 with DANDC PAST SURGICAL HISTORY OF 01/16/12 left axillary ln biopsy/ had 2012 stem cell tx has port removal VAGINOSCOPY 10/12/14 negative path VATS MEDIASTINAL LYMPHADENECTOMY 10/2012 left VATS FAMILY HISTORY Problem Relation Age of Onset Multiple Sclerosis Mother Coronary Artery Disease Maternal Grandfather OR age 36 Coronary Artery Disease Paternal Grandfather 60's Multiple Sclerosis Maternal Grandmother Social History Tobacco Use Smoking status: Former Current packs/day: 0.00 Types: Cigarettes Start date: 01/17/2002 Quit date: 01/18/2012 Years since quittin.9 Passive exposure: Past Smokeless tobacco: Never Vaping Use Vaping status: Never Used Substance Use Topics Alcohol use: Yes Alcohol/week: 0.0 standard drinks of alcohol Comment: 2 drinks per month Drug use: No ALLERGIES: ALLERGIES Allergen Reactions Chlorhexidine Itching Severe skin irritation. Had used for central line care Sulfa (Sulfonamide * Rash CURRENT OUTPATIENT MEDICATIONS: escitalopram oxalate (LEXAPRO) 10 mg tabletTake 1 tablet by mouth once daily.Disp: 90 tabletRfl: 0 oxyCODONE IR (ROXICODONE) 10 mg tabTake 1 tablet by mouth two times a day as needed for pain for up to 30 days.Disp: 60 tabletRfl: 0 cyclobenzaprine (FLEXERIL) 10 mg tabletTake 1 tablet by mouth two times a day as needed for muscle spasm.Disp: 60 tabletRfl: 0 sodium chloride (NEBUSAL) 3 % nebulizer solutionUse 4 mL via nebulizer two times a day.Disp: 160 mLRfl: 2 traZODone (DESYREL) 100 mg tabletTake 100 mg by mouth at bedtime as needed. AT BEDTIME.Disp: Rfl: tolterodine ER (DETROL LA) 2 mg 24 hr capsuleTake 2 mg by mouth once daily.Disp: Rfl: gabapentin (NEURONTIN) 300 mg capsuleTake 2 capsules by mouth three times a day for 90 days.Disp: Rfl: ipratropium-albuterol (DUONEB) 0.5 mg-3 mg(2.5 mg base)/3 mL nebuinhale contents of 1 vial ( 3 MILLILITERS ) in nebulizer by mouth and INTO THE LUNGS every 6 hours if needed for wheezing or shortness of breathDisp: 1620 mLRfl: [address] (PROTONIX) 40 mg tabletTake 1 tablet by mouth once daily.Disp: 90 tabletRfl: 1 prochlorperazine (COMPAZINE) 10 mg tablettake 1 tablet by mouth every 6 hours if neededDisp: 30 tabletRfl: 3 LORazepam (ATIVAN) 0.5 mgtake 1 tablet by mouth four times a day if needed for anxietyDisp: Rfl: XARELTO 10 mg tablettake 1 tablet by mouth once dailyDisp: 90 tabletRfl: 3 Biotin 2,500 mcg capDisp: Rfl: fluocinonide (LIDEX) 0.05 % creamapply to affected area ON THE RIGHT HAND and legs TWICE A DAYDisp: 120 gRfl: 2 levothyroxine (SYNTHROID) 75 mcg tabletTake 1 tablet by mouth once daily. Disp: Rfl: triamcinolone acetonide (KENALOG) 0.1 % ointmentAPPLY TO THE AFFECTED AREA TWICE A DAY FOR 5 DAYSDisp: Rfl: (more content not included)... [facility] ED NOTEon 12-19-2023 ED NOTE HNO ID: [id number] Author: SIMRAN BOB RN Service: ? Author Type: Registered Nurse Type: ED Notes Filed: 12/19/2023 07:10 Note Text: Report given to MAE Fields [facility] ED PROV NOTEon 12-19-2023 ED PROV NOTE HNO ID: [id number] Author: BETTY HORTON MD Service: Emergency Medicine Author Type: Physician Type: ED Provider Notes Filed: 12/19/2023 06:28 Note Text: ED Provider Note Patient Name: Celso Weller : 1980 SERVICE DATE: 12/18/23 History Patient presents with: Shortness of Breath: Seen at MD yesterday. SPO2 82% at that time. 98% in triage HPI 43-year-old female presenting to the ED for shortness of breath and cough. She was seen yesterday by pulmonology, noted to be hypotensive and was advised to come to the emergency department. She does have a history of pneumonia. She states she was told by her pari mutuel ticket seller that she needs to have a bronchoscopy done and was advised to come to the ED for admission. Currently denies nausea, vomiting, chest pain and fevers. Does have some chest tightness which she states is consistent since radiation for Hodgkin lymphoma PAST MEDICAL HISTORY Diagnosis Date ASCUS favor [...] Date ENDOCERVICAL CURETTAGE 04/02/2017 HYSTEROSCOPY BX W/WO DANDC 04/02/2017 with RICARDO PAST SURGICAL HISTORY OF 01/16/12 left axillary ln biopsy/ had 2012 stem cell tx has port removal VAGINOSCOPY 10/12/14 negative path VATS MEDIASTINAL LYMPHADENECTOMY 10/2012 left VATS FAMILY HISTORY Problem Relation Age of Onset Multiple Sclerosis Mother Coronary Artery Disease Maternal Grandfather OR age 36 Coronary Artery Disease Paternal Grandfather 60's Multiple Sclerosis Maternal Grandmother Social History Tobacco Use Smoking status: Former Current packs/day: 0.00 Types: Cigarettes Start date: 01/17/2002 Quit date: 01/18/2012 Years since quittin.9 Passive exposure: Past Smokeless tobacco: Never Vaping Use Vaping status: Never Used Substance and Sexual Activity Alcohol use: Yes Alcohol/week: 0.0 standard drinks of alcohol Comment: 2 drinks per month Drug use: No Sexual activity: Yes Partners: Male control/protection: None Comment: condoms was on ocp, 2013 Menopause ALLERGIES Allergen Reactions Chlorhexidine Itching Severe skin irritation. Had used for central line care Sulfa (Sulfonamide * Rash Review of Systems Constitutional: Negative for chills and fever. Respiratory: Positive for cough, chest tightness and shortness of breath. Cardiovascular: Negative for chest pain. Gastrointestinal: Negative for abdominal pain, nausea and vomiting. Physical Exam Vitals [12/18/231927] BP Pulse Temp Temp src Resp SpO2 Weight Height 132/92 (!) 102 37.1 ?C (98.8 ?F) Temporal 18 99 % -- -- Physical Exam Vitals and nursing note reviewed. Constitutional: General: She is not in acute distress. Appearance: She is not ill-appearing, toxic-appearing or diaphoretic. HENT: Head: Normocephalic and atraumatic. Eyes: Extraocular Movements: Extraocular movements intact. Conjunctiva/sclera: Conjunctivae normal. Cardiovascular: Rate and Rhythm: Normal rate and regular rhythm. Pulses: Normal pulses. Pulmonary: Effort: Pulmonary effort is normal. No respiratory distress. Breath sounds: Normal breath sounds. Abdominal: General: There is no distension. Palpations: Abdomen is soft. Musculoskeletal: General: No deformity. Normal range of motion. Cervical back: Normal range of motion and neck supple. Skin: General: Skin is warm and dry. Neurological: General: No focal deficit present. Mental Status: She is alert and oriented to person, place, and time. Psychiatric: Behavior: Behavior normal. Thought Content: Thought content normal. Diagnostic Testing ED Labs Ordered and Reviewed COMPREHENSIVE METABOLIC PANEL - Abnormal; Notable for the following components: Result Value Ref Range AST 45 (*) 13 - 35 U/L ALT 46 (*) 7 - 38 U/L All other components within normal limits HIGH SENSITIVITY TROPONIN T (INITIAL) - Abnormal; Notable for the following components: LANE High Sensitivity 16 (*) <12 ng/L All other components within normal limits HIGH SENSITIVITY TROPONIN T (SECOND) - Abnormal; Notable for the following components: LANE High Sensitivity 13 (*) <12 ng/L All other components within normal limits COMPLETE BLOOD COUNT - Normal COVID AND INFLUENZA A/B AND RSV PCR, EXPEDITED - Normal Narrative: Reference Range (the expected result in uninfected indivi (more content not included)... Normal [facility] HIGH SENSITIVITY TROPONIN T (SECOND)on 12-19-2023 Troponin T.cardiac High sensitivity method [Mass/Vol] 13 ng/L High <12 [facility] Comment on above: Order Comment: Speci men Type: BLOOD SPECIMENOrdering Facility: [facility] Address: [facility] [place] [id number] Performed By: #### L [id number] ####[facility] LABORATORYCLIA [id number] [facility] [place] [address] [place] HISTORY PHYSICALon HISTORY PHYSICAL HNO ID: [id number] Author: CAL BLACKMON MD Service: Hospital Medicine Author Type: Physician Type: H&P Filed: 12/19/2023 07:04 Note Text: DEPARTMENT OF HOSPITAL MEDICINE HISTORY AND PHYSICAL EXAM SERVICE DATE: 12/19/2023 SERVICE TIME: 1:53 AM Primary Care Physician: Bee Vail MD NIGHT AND WEEKEND COVERAGE: [place] COVERAGE: Days: [phone], please contact via [employer] Nights: [phone] - floor: please page Hospitalist night cover [phone] - 4W: please page Hospitalist night cover #[phone] - 5th floor: please page Hospitalist night cover #[phone] - SDU (17:00 - 19:00): Please page #[phone] - SDU (19:00 - 07:00): Please call [facility] at [phone] Subjective CHIEF COMPLAINT: Recurrent pneumonia and new oxygen requirement HPI: This is a 43 year old female with history of Lymphoma (completed Immunotherapy in September 2023), pulmonary embolism in 2012 on Xarelto, Depression/Anxiety, GERD, chemotherapy-induced neuropathy, recurrent pneumonia (most recent episode on October, treated at [facility]) with persistent shortness of breath, new oxygen requirements 3 L with exertion, ground glass changes on most recent PET/CT who was sent in to the ED by her pari mutuel ticket seller to be admitted in the hospital for bronchoscopy tomorrow or Saturday. On my evaluation in the ED tonight patient reports feeling well, she is on room air and denies feeling any shortness of breath. Does not have any active complaints. Home she is on 3 L nasal cannula with exertion and on room air at rest, she uses albuterol nebulizer at home, and has been having a chronic cough with no recent changes in sputum production. Patient is here for bronchoscopy, her last dose of Xarelto was on 12/15 in the evening. Vital signs on arrival to ED showed HR 102, otherwise stable. CBC is unremarkable, CMP with mildly elevated AST and ALT, normal kidney function and normal electrolytes. Chest x-ray Similar chronic lung changes without acute abnormality. EKG showed sinus tachycardia. PAST MEDICAL HISTORY Diagnosis Date ASCUS favor [...] Date ENDOCERVICAL CURETTAGE 04/02/2017 HYSTEROSCOPY BX W/WO DANDC 04/02/2017 with RICARDO PAST SURGICAL HISTORY OF 01/16/12 left axillary ln biopsy/ had 2012 stem cell tx has port removal VAGINOSCOPY 10/12/14 negative path VATS MEDIASTINAL LYMPHADENECTOMY 10/2012 left VATS FAMILY HISTORY Problem Relation Age of Onset Multiple Sclerosis Mother Coronary Artery Disease Maternal Grandfather OR age 36 Coronary Artery Disease Paternal Grandfather 60's Multiple Sclerosis Maternal Grandmother Social History Tobacco Use Smoking status: Former Current packs/day: 0.00 Types: Cigarettes Start date: 01/17/2002 Quit date: 01/18/2012 Years since quittin.9 Passive exposure: Past Smokeless tobacco: Never Vaping Use Vaping status: Never Used Substance Use Topics Alcohol use: Yes Alcohol/week: 0.0 standard drinks of alcohol Comment: 2 drinks per month Drug use: No PRIOR TO ADMISSION MEDICATIONS: (Not in a hospital admission) ALLERGIES Allergen Reactions Chlorhexidine Itching Severe skin irritation. Had used for central line care Sulfa (Sulfonamide * Rash REVIEW OF SYSTEM: 12 point ROS was performed, and it was negative unless mentioned otherwise otherwise in the HPI. Objective PHYSICAL EXAM: BP 115/88 Pulse 85 Temp (Src) 98.8 (Temporal) Resp 16 SpO2 95% LMP 11/18/2012 O2 Therapy: Room Air Physical Exam Performed: GENERAL: Alert, no distress, cooperative. SKIN: Skin color, texture, turgor normal. No rashes or lesions. NECK: No jugulovenous distention. Supple. LUNGS: Coarse breath sounds bilaterally, no wheezing or crackles CARDIAC: Normal S1 and S2; no rubs, murmurs, or gallops. ABDOMEN: Abdomen soft, non-tender. BS normal. EXTREMITIES: Extremities normal, no deformities, edema, clubbing or skin discoloration. Lines, Drains, and Airways Line Duration Peripheral 12/18/232038 Short Left Antecubital 20 Gauge <1 day Reviewed lines and needs to be continued: REASONS: Intravenous fluids DATA: Diagnostic tests reviewed for today's visit: Most recent labs Most recent imaging Most recent EKG Assessment/Plan Problem List Acute hypoxic respiratory failure (HCC) (POA: Yes) Autologou (more content not included)... Normal [facility] Procalcitonin SerPl-ncon 1 Procalcitonin [Mass/Vol] ng/mL Normal <0.09 [facility] Comment on above: Order Comment: Nicole toribio Type: BLOOD SPECIMENOrdering Facility: [facility] Address: [address] [place] [address] Result Comment: For a guided interpretation of test results, please visit the Change in Procalcitonin Calculator, [email or web address]. Performed By: #### 2 4321-2, 35697-9 ####[facility] LABORATORYCLIA [id number] [facility] [place] [address] [place] CBC W Auto Differential pane l (Bld)on 12-18-2023 Basophils (Bld) [#/Vol] 10*3/uL Normal <0.11 [facility] Comment on above: Order Comment: Nicole toribio Type: BLOOD SPECIMENOrdering Facility: [facility] Address: [address] [place] [address] Performed By: #### 5 7021-8 ####[facility] LABORATORYCLIA [id number] [place] [address] [place] Basophils/100 WBC (Bld) 0.3 % Normal [facility] Comment on above: Order Comment: Speci men Type: BLOOD SPECIMENOrdering Facility: [facility] Address: [address] [place] [address] Performed By: #### 5 7021-8 ####[facility] LABORATORYCLIA [id number] [place] [address] [place] Differential cell count method Nom (Bld) Auto Normal [facility] Comment on above: Order Comment: Speci men Type: BLOOD SPECIMENOrdering Facility: [facility] Address: [address] [place] [address] Performed By: #### 5 7021-8 ####[facility] HOSPITALIA [id number] [place] [address] [place] Eosinophils (Bld) [#/Vol] 0.21 10*3/uL Normal <0.46 [facility] Comment on above: Order Comment: Speci men Type: BLOOD SPECIMENOrdering Facility: [facility] Address: [address] [place] [address] Performed By: #### 5 7021-8 ####[facility] LABORATORYIA [id number] [place] [address] [place] Eosinophils/100 WBC (Bld) 3.2 % Normal [facility] Comment on above: Order Comment: Speci men Type: BLOOD SPECIMENOrdering Facility: [facility] Address: [address] [place] [address] Performed By: #### 5 7021-8 ####[facility] LABORATORYIA [id number] [place] Erythrocyte distribution width (RBC) [Ratio] 13.1 % Normal 11.5-15.0 [facility] Comment on above: Order Comment: Speci men Type: BLOOD SPECIMENOrdering Facility: [facility] Address: [address] [place] [address] Performed By: #### 5 7021-8 ####[facility]ORATORYCLIA [id number] [place] [address] [place] Hematocrit (Bld) [Volume fraction] 43.2 % Normal 36.0-46.0 [facility] Comment on above: Order Comment: Speci men Type: BLOOD SPECIMENOrdering Facility: [facility] Address: [address] [place] [address] Performed By: #### 5 7021-8 ####[facility]ORATORYCLIA [id number] [place] [address] [place] Hemoglobin (Bld) [Mass/Vol] 14.1 g/dL Normal 11.5-15.5 [facility] Comment on above: Order Comment: Speci men Type: BLOOD SPECIMENOrdering Facility: [facility] Address: [address] [place] [address] Performed By: #### 5 7021-8 ####[facility] HOSPITALIA [id number] [place] [address] [place] Immature granulocytes (Bld) [#/Vol] 10*3/uL Normal <0.10 [facility] Comment on above: Order Comment: Speci men Type: BLOOD SPECIMENOrdering Facility: [facility] Address: [address] [place] [address] Performed By: #### 5 7021-8 ####[facility] LABORATORYIA [id number] [place] [address] [place] Immature granulocytes/100 WBC (Bld) 0.3 % Normal [facility] Comment on above: Order Comment: Speci men Type: BLOOD SPECIMENOrdering Facility: [facility] Address: [address] [place] [address] Performed By: #### 5 7021-8 ####[facility]ORATORYCLIA [id number] [facility] [place] [address] [place] Lymphocytes (Bld) [#/Vol] 2.28 10*3/uL Normal 1.00-4.00 [facility] Comment on above: Order Comment: Speci men Type: BLOOD SPECIMENOrdering Facility: [facility] Address: [address] [place] [address] Performed By: #### 5 7021-8 ####[facility]ORATORYCLIA [id number] [place] [address] [place] Lymphocytes/100 WBC (Bld) 34.8 % Normal [facility] Comment on above: Order Comment: Speci men Type: BLOOD SPECIMENOrdering Facility: [facility] Address: [address] [place] [address] Performed By: #### 5 7021-8 ####[facility] HOSPITALIA [id number] [place] [address] [place] MCH (RBC) [Entitic mass] 31.2 pg Normal 26.0-34.0 [facility] Comment on above: Order Comment: Speci men Type: BLOOD SPECIMENOrdering Facility: [facility] Address: [address] [place] [address] Performed By: #### 5 7021-8 ####[facility] HOSPITALIA [id number] [place] [address] [place] MCHC (RBC) [Mass/Vol] 32.6 g/dL Normal 30.5-36.0 [facility] Comment on above: Order Comment: Speci men Type: BLOOD SPECIMENOrdering Facility: [facility] Address: [address] [place] [address] Performed By: #### 5 7021-8 ####[facility] LABORATORYIA [id number] [place] [address] [place] MCV (RBC) [Entitic vol] 95.6 fL Normal 80.0-100.0 [facility] Comment on above: Order Comment: Speci men Type: BLOOD SPECIMENOrdering Facility: [facility] Address: [address] [place] [address] Performed By: #### 5 7021-8 ####[facility] LABORATORYIA [id number] [facility] [place] [address] [place] Monocytes (Bld) [#/Vol] 0.74 10*3/uL Normal <0.87 [facility] Comment on above: Order Comment: Speci men Type: BLOOD SPECIMENOrdering Facility: [facility] Address: [address] [place] [address] Performed By: #### 5 7021-8 ####[facility] LABORATORYCLIA [id number] [place] [address] [place] Monocytes/100 WBC (Bld) 11.3 % Normal [facility] Comment on above: Order Comment: Speci men Type: BLOOD SPECIMENOrdering Facility: [facility] Address: [address] [place] [address] Performed By: #### 5 7021-8 ####[facility]ORATORYCLIA [id number] [place] [address] [place] Neutrophils (Bld) [#/Vol] 3.28 10*3/uL Normal 1.45-7.50 [facility] Comment on above: Order Comment: Speci men Type: BLOOD SPECIMENOrdering Facility: [facility] Address: [address] [place] [address] Performed By: #### 5 7021-8 ####[facility] LABORATORYIA [id number] [place] [address] [place] Neutrophils/100 WBC (Bld) 50.1 % Normal [facility] Comment on above: Order Comment: Speci men Type: BLOOD SPECIMENOrdering Facility: [facility] Address: [address] [place] [address] Performed By: #### 5 7021-8 ####[facility] LABORATORYIA [id number] [place] [address] [place] Nucleated RBC (Bld) [#/Vol] 10*3/uL Normal <0.01 [facility] Comment on above: Order Comment: Speci men Type: BLOOD SPECIMENOrdering Facility: [facility] Address: [address] [place] [address] Performed By: #### 5 7021-8 ####[facility] LABORATORYCLIA [id number] [place] [address] [place] Nucleated RBC/100 WBC (Bld) [Ratio] 0.0 /100 WBC Normal [facility] Comment on above: Order Comment: Speci men Type: BLOOD SPECIMENOrdering Facility: [facility] Address: [address] [place] [address] Performed By: #### 5 7021-8 ####[facility] HOSPITALIA [id number] [place] [address] [place] Platelet mean volume (Bld) [Entitic vol] 9.2 fL Normal 9.0-12.7 [facility] Comment on above: Order Comment: Speci men Type: BLOOD SPECIMENOrdering Facility: [facility] Address: [address] [place] [address] Performed By: #### 5 7021-8 ####[facility] HOSPITALIA [id number] [place] [address] [place] Platelets (Bld) [#/Vol] 340 10*3/uL Normal 150-400 [facility] Comment on above: Order Comment: Speci men Type: BLOOD SPECIMENOrdering Facility: [facility] Address: [address] [place] [address] Performed By: #### 5 7021-8 ####[facility]PITALIA [id number] [place] [address] [place] RBC (Bld) [#/Vol] 4.52 10*6/uL Normal 3.90-5.20 [facility] Comment on above: Order Comment: Speci men Type: BLOOD SPECIMENOrdering Facility: [facility] Address: [address] [place] [address] Performed By: #### 5 7021-8 ####[facility]OSPITALIA [id number] [place] [address] [place] WBC (Bld) [#/Vol] 6.55 10*3/uL Normal 3.70-11.00 [facility] Comment on above: Order Comment: Speci men Type: BLOOD SPECIMENOrdering Facility: [facility] Address: [address] [place] [address] Performed By: #### 5 7021-8 ####[facility]ORATORYCLIA [id number] [place] [address] [facility] [place] Comprehensive metabolic 2000 panelon 12-18-2023 Albumin [Mass/Vol] 4.2 g/dL Normal 3.9-4.9 [facility] Comment on above: Order Comment: Speci men Type: BLOOD SPECIMENOrdering Facility: [facility] Address: [address] [place] [address] Performed By: #### 2 4323-8 ####[facility]ORATORYCLIA [id number] [place] [address] [place] ALP [Catalytic activity/Vol] 71 U/L Normal 34-123 [facility] Comment on above: Order Comment: Speci men Type: BLOOD SPECIMENOrdering Facility: [facility] Address: [address] [place] [address] Performed By: #### 2 4323-8 ####[facility]ORATORYCLIA [id number] [place] [address] [place] ALT [Catalytic activity/Vol] 46 U/L High 7-38 [facility] Comment on above: Order Comment: Speci men Type: BLOOD SPECIMENOrdering Facility: [facility] Address: [address] [place] [address] Performed By: #### 2 4323-8 ####[facility]ORATORYCLIA [id number] [place] [address] [place] Anion gap [Moles/Vol] 9 mmol/L Normal 8-15 [facility] Comment on above: Order Comment: Speci men Type: BLOOD SPECIMENOrdering Facility: [facility] Address: [address] [place] [address] Performed By: #### 2 4323-8 ####[facility]ORATORYCLIA [id number] [place] [address] [place] AST [Catalytic activity/Vol] 45 U/L High 13-35 [facility] Comment on above: Order Comment: Speci men Type: BLOOD SPECIMENOrdering Facility: [facility] Address: [address] [place] [address] Performed By: #### 2 4323-8 ####[facility] LABORATORYIA [id number] [place] [address] [place] Bilirubin [Mass/Vol] 0.2 mg/dL Normal 0.2-1.3 [facility] Comment on above: Order Comment: Speci men Type: BLOOD SPECIMENOrdering Facility: [facility] Address: [address] [place] [address] Performed By: #### 2 4323-8 ####[facility]OSPITALIA [id number] [place] [address] [place] Calcium [Mass/Vol] 9.7 mg/dL Normal 8.5-10.2 [facility] Comment on above: Order Comment: Speci men Type: BLOOD SPECIMENOrdering Facility: [facility] Address: [address] [place] [address] Performed By: #### 2 4323-8 ####[facility]ITALIA [id number] [place] [address] [place] Chloride [Moles/Vol] 106 mmol/L Normal 98-107 [facility] Comment on above: Order Comment: Speci men Type: BLOOD SPECIMENOrdering Facility: [facility] Address: [address] [place] [address] Performed By: #### 2 4323-8 ####[facility] LABORATORYIA [id number] [place] [address] [place] CO2 [Moles/Vol] 27 mmol/L Normal 22-30 [facility] Comment on above: Order Comment: Speci men Type: BLOOD SPECIMENOrdering Facility: [facility] Address: [address] [place] [address] Performed By: #### 2 4323-8 ####[facility]ORATORYCLIA [id number] [place] [address] [place] Creatinine [Mass/Vol] 0.72 mg/dL Normal 0.58-0.96 [facility] Comment on above: Order Comment: Nicole toribio Type: BLOOD SPECIMENOrdering Facility: [facility] Address: [address] [place] [address] Performed By: #### 2 4323-8 ####[facility]PITALIA [id number] [place] [address] [place] Creatinine and Glomerular filtration rate.predicted panel (S/P/Bld) 108 mL/min/1.73m??? Normal >=60 [facility] Comment on above: Order Comment: Nicole toribio Type: BLOOD SPECIMENOrdering Facility: [facility] Address: [address] [place] [address] Result Comment: Purnima mated Glomerular Filtration Rate [...] actual GFR. Performed By: #### 2 4323-8 ####[facility] LABORATORYIA [id number] [place] [address] [place] Glucose [Mass/Vol] 97 mg/dL Normal 74-99 [facility] Comment on above: Order Comment: Nicole toribio Type: BLOOD SPECIMENOrdering Facility: [facility] Address: [address] [place] [address] Result Comment: The [place] [employer] (ADA) provides guidance for cutoff [...] Standards of Medical Care in Diabetes 2016, [place] [employer]. Diabetes Care. 2016.39(Suppl 1). Performed By: #### 2 4323-8 ####[facility]PITALCLIA [id number] [place] [address] [place] Potassium [Moles/Vol] 4.1 mmol/L Normal 3.7-5.1 [facility] Comment on above: Order Comment: Speci men Type: BLOOD SPECIMENOrdering Facility: [facility] Address: [address] [place] [address] Performed By: #### 2 4323-8 ####[facility]PITALIA [id number] [place] [address] [place] Protein [Mass/Vol] 6.8 g/dL Normal 6.3-8.0 [facility] Comment on above: Order Comment: Speci men Type: BLOOD SPECIMENOrdering Facility: [facility] Address: [address] [place] [address] Performed By: #### 2 4323-8 ####[facility]OSPITALIA [id number] [place] [address] [place] Sodium [Moles/Vol] 142 mmol/L Normal 136-144 [facility] Comment on above: Order Comment: Speci men Type: BLOOD SPECIMENOrdering Facility: [facility] [facility] Address: [address] [place] [address] Performed By: #### 2 4323-8 ####[facility] [id number] [place] [address] [place] Urea nitrogen [Mass/Vol] 9 mg/dL Normal 7-21 [facility] Comment on above: Order Comment: Speci men Type: BLOOD SPECIMENOrdering Facility: [facility] Address: [address] [place] [address] Performed By: #### 2 4323-8 ####[facility]ATORYCLIA [id number] [facility] [place] [address] [place] [facility] ECG COMPLETEon 12-18-2023 ECG COMPLETE Ventricular Rate : 1 01 BPM Atrial Rate : 101 BPM P-R Interval : 168 ms QRS Duration : 102 ms Q-T Interval : 354 ms QTC Calculation(Bazett) : 459 ms Calculated P [place] : 59 degrees Calculated R [place] : -38 degrees Calculated T [place] : 30 degrees Sinus tachycardia Left axis deviation Minimal voltage criteria for LVH, may be normal variant Cannot rule out Anterior infarct , age undetermined Abnormal ECG 1937 NO STEMI Confirmed by SAEED HUDDLESTON MD ([id number]), copy editor SHERIN DELACRUZ ([id number]) on 12/19/2023 9:38:42 AM NAME : CELSO WELLER PID : [id number] : 1980 Gender : Female Race : ORD : [id number] Procedure Date : Dec 18 2023 19:31:27 Edit Date : Dec 19 2023 09:38:44 Diagnosis: Sinus tachycardia Left axis deviation Minimal voltage criteria for LVH, may be normal variant Cannot rule out Anterior infarct , age undetermined Abnormal ECG 1937 NO STEMI Confirmed by SAEED HUDDLESTON MD ([id number]), copy editor SHERIN DELACRUZ ([id number]) on 12/19/2023 9:38:42 AM Test Reason : Chest Pain Location : 302 : ED ED Overread By : SAEED HUDDLESTON MD Edited By : SHERIN DELACRUZ Referred By : , Acquired by : [id number], Normal [facility] ED NOTEon 12-18-2023 ED NOTE HNO ID: [id number] Author: EDILMA NIELSON RN Service: ? Author Type: Registered Nurse Type: ED Notes Filed: 12/18/2023 19:28 Note Text: Pt arrived to the ED for SOB and low SPO2. Pt was sent my MD. Was seen in the office yesterday and sent home on O2. Pt states she is always SOB with chest tightness and has a hx of PE's and Lymphoma. Denies fevers at home. Denies N/V/D. VSS in triage. [facility] ED Triage Noteon 12-18-2023 ED Triage Note HNO ID: [id number] Author: SAEED HUDDLESTON MD Service: Emergency Medicine Author Type: Physician Type: ED Triage Notes Filed: 12/18/2023 19:29 Note Text: ED TRIAGE PROVIDER NOTE Patient Name: Celso Weller Service Date: 12/18/23 BRIEF HPI: This is a 43 year old female who presents to the ED with: Medical history of Hodgkin lymphoma status postradiation therapy with chronic chest tightness and cough presents with hypoxia which was noted yesterday (SpO2 was 82%). No fevers. Does report history of frequent pneumonias. BRIEF EXAM: NAD Awake and Alert Non labored breathing BP 132/92 Pulse 102 Resp 18 SpO2 99% LMP 11/18/2012 ' INITIAL WORKUP AND DECISION MAKING: Orders Placed This Encounter XR CHEST 2V FRONTAL/LAT COMPREHENSIVE METABOLIC PANEL (BMP+LFT) High Sensitivity Troponin T with Reflex for ED Chest Pain CBC + AUTO DIFF ECG COMPLETE SIGNATURE: Saeed Huddleston MD Normal [facility] HIGH SENSITIVITY TROPONIN T (INITIAL)on 12-18-2023 Troponin T.cardiac High sensitivity method [Mass/Vol] 16 ng/L High <12 [facility] Comment on above: Order Comment: Speci men Type: BLOOD SPECIMEN [facility] Facility: [facility] Address: [address] [place] [address] Performed By: #### L [id number] #### [facility] CLIA [id number] [facility] [place] [address] [place] XR CHEST 2V FRONTAL/LATon XR CHEST 2V FRONTAL/LAT * * *Final Report* * * DATE OF EXAM: Dec 18 2023 7:49PM [id number] - XR CHEST 2V FRONTAL/LAT / PROCEDURE REASON: Chest Pain * * * * Physician Interpretation * * * * EXAMINATION: CHEST RADIOGRAPH (2 VIEW FRONTAL and LATERAL) CLINICAL HISTORY: Chest Pain MQ: XC2_6 EXAM DATE/TIME: 12/18/2023 7:49 PM COMPARISON: Head CT 12/11/2023, chest radiograph 11/21/2023, outside chest CT 10/29/2023 RESULT: Lines, tubes, and devices: None. Lungs and pleura: Similar opacity/scarring with bronchiectasis in the medial left lung, with lesser involvement at the medial right lung base. No new consolidation or overt pulmonary edema. No sizable pleural effusion. No pneumothorax. Cardiomediastinal silhouette: Stable cardiomediastinal silhouette, noting partially obscured left borders without gross cardiac enlargement. Bones and soft tissues: No acute abnormality. IMPRESSION: Similar chronic lung changes without acute abnormality. Jig Borer: DEDE Transcribe Date/Time: Dec 18 2023 9:08P Dictated by : SHELLY CHAHAL MD This examination was interpreted and the report reviewed and electronically signed by: SHELLY CHAHAL MD on Dec 18 2023 9:14PM EST [id number] Normal [facility] GLUCOSE, BLOOD (POC)on 12-10 Glucose [Mass/Vol] 87 mg/dL 74 - 99 mg/dL [facility] Comment on above: Location:[facility], [address] [place] [address] , [place], [place], [facility] The Accu-Chek Inform II glucose meter has not been approved for testing on patients receiving intensive medical intervention or therapy and results from this point of care glucose test should not be used for patient management decisions in these cases. Inaccurate results may also occur from other interfering factors, such as N-acetylcysteine (blood concentrations of greater than 5mg/dL), galactose, extremes of hematocrit (<10 or >65), or high doses of ascorbic acid (vitamin C) greater than 3mg/dL. Consider alternate testing mechanisms (e.g. core lab, blood gas instrument) in the above situations. [facility] No Panel Informationon 11-27 Interpretation and review of laboratory results Abnormal [facility] PNEUMOCOCCAL AB (23 SEROTYPE )on 11-28-2023 S. pneumoniae Chinese type 1 IgG IA (S) [Mass/Vol] <0.1 Low 1.3 - PINF ug/mL [facility] S. pneumoniae Chinese type 10A IgG IA (S) [Mass/Vol] 1.4 ug/mL 1.3 - PINF ug/mL [facility] S. pneumoniae Chinese type 11A IgG IA (S) [Mass/Vol] <0.1 Low 1.3 - PINF ug/mL [facility] S. pneumoniae Chinese type 12F IgG IA (S) [Mass/Vol] 0.2 ug/mL Low 1.3 - PINF ug/mL [facility] S. pneumoniae Chinese type 14 IgG IA (S) [Mass/Vol] 0.2 ug/mL Low 1.3 - PINF ug/mL [facility] S. pneumoniae Chinese type 15B IgG IA (S) [Mass/Vol] 0.3 ug/mL Low 1.3 - PINF ug/mL [facility] S. pneumoniae Chinese type 17F IgG IA (S) [Mass/Vol] 0.1 ug/mL Low 1.3 - PINF ug/mL [facility] S. pneumoniae Chinese type 18C IgG IA (S) [Mass/Vol] 0.4 ug/mL Low 1.3 - PINF ug/mL [facility] S. pneumoniae Chinese type 19A IgG IA (S) [Mass/Vol] 1.0 ug/mL Low 1.3 - PINF ug/mL [facility] S. pneumoniae Chinese type 19F IgG IA (S) [Mass/Vol] 0.9 ug/mL Low 1.3 - PINF ug/mL [facility] S. pneumoniae Chinese type 2 IgG IA (S) [Mass/Vol] 1.4 ug/mL 1.3 - PINF ug/mL [facility] S. pneumoniae Chinese type 20A IgG IA (S) [Mass/Vol] 10.5 ug/mL 1.3 - PINF ug/mL [facility] S. pneumoniae Chinese type 22F IgG IA (S) [Mass/Vol] 1.2 ug/mL Low 1.3 - PINF ug/mL [facility] S. pneumoniae Chinese type 23F IgG IA (S) [Mass/Vol] 0.1 ug/mL Low 1.3 - PINF ug/mL [facility] S. pneumoniae Chinese type 3 IgG IA (S) [Mass/Vol] 0.3 ug/mL Low 1.3 - PINF ug/mL [facility] S. pneumoniae Chinese type 33F IgG IA (S) [Mass/Vol] 2.7 ug/mL 1.3 - PINF ug/mL [facility] Comment on above: *This test was devel oped and its performance characteristics determined by [employer]. It has not been cleared or approved by the U.S. Food and Drug Administration. FLAG Interpretation: A = Abnormal, H = High, L = Low S. pneumoniae Chinese type 4 IgG IA (S) [Mass/Vol] 0.1 ug/mL Low 1.3 - PINF ug/mL [facility] S. pneumoniae Chinese type 5 IgG IA (S) [Mass/Vol] 0.1 ug/mL Low 1.3 - PINF ug/mL [facility] S. pneumoniae Chinese type 6B IgG IA (S) [Mass/Vol] <0.1 Low 1.3 - PINF ug/mL [facility] S. pneumoniae Chinese type 7F IgG IA (S) [Mass/Vol] 0.5 ug/mL Low 1.3 - PINF ug/mL [facility] S. pneumoniae Chinese type 8 IgG IA (S) [Mass/Vol] 0.7 ug/mL Low 1.3 - PINF ug/mL [facility] S. pneumoniae Chinese type 9N IgG IA (S) [Mass/Vol] 0.2 ug/mL Low 1.3 - PINF ug/mL [facility] S. pneumoniae Chinese type 9V IgG IA (S) [Mass/Vol] <0.1 Low 1.3 - PINF ug/mL [facility] Performed at: 02 - [employer] [address] [place] [address], [address] [id number] Media Technician: MANUELITO Wong PhDBC, Phone: [phone] [facility] T-helper cells (CD4) counton 11-28-2023 Basophils (Bld) [#/Vol] 0.0 10*3/uL [facility] Basophils/100 WBC (Bld) 0 % Not Estab. [facility] CD3+CD4+ (T4 helper) cells (Bld) [#/Vol] 301 /uL Low 359 - 1519 /uL [facility] CD3+CD4+ (T4 helper) cells/100 cells (Bld) 18.8 % Low 30.8 - 58.5 % [facility] Eosinophils (Bld) [#/Vol] 0.1 10*3/uL [facility] Eosinophils/100 WBC (Bld) 1 % Not Estab. [facility] Erythrocyte distribution width (RBC) [Ratio] 13.8 % 11.7 - 15.4 % [facility] Hematocrit (Bld) [Volume fraction] 46.2 % 34.0 - 46.6 % [facility] Hemoglobin (Bld) [Mass/Vol] 14.3 g/dL 11.1 - 15.9 g/dL [facility] Immature granulocytes (Bld) [#/Vol] 0.1 10*3/uL [facility] Immature granulocytes/100 WBC (Bld) 1 % Not Estab. [facility] Lymphocytes (Bld) [#/Vol] 1.6 10*3/uL [facility] Lymphocytes/100 WBC (Bld) 18 % Not Estab. [facility] MCH (RBC) [Entitic mass] 30.0 pg 26.6 - 33.0 pg [facility] MCHC (RBC) [Mass/Vol] 31.0 g/dL Low 31.5 - 35.7 g/dL [facility] MCV (RBC) [Entitic vol] 97 fL 79 - 97 fL [facility] Monocytes (Bld) [#/Vol] 0.6 10*3/uL [facility] Monocytes/100 WBC (Bld) 7 % Not Estab. [facility] Neutrophils (Bld) [#/Vol] 6.8 10*3/uL [facility] Neutrophils/100 WBC (Bld) 73 % Not Estab. [facility] Platelets (Bld) [#/Vol] 326 10*3/uL [facility] RBC (Bld) [#/Vol] 4.77 10*6/uL [facility] WBC (Bld) [#/Vol] 9.2 10*3/uL [facility] Performed at: [address] [place] [id number] Media Technician: Ranjan Andre PhD, Phone: [phone] [facility] XR Chest PA and Lateralon IMPRESSION: 1. No interval change since 05/31/23. 2. Bilateral perihilar consolidative opacities, left greater than right, most likely related to post radiation change, stable. Jig Borer: PSCB Transcribe Date/Time: Nov 21 2023 11:58A Dictated by : YOGESH DAVIS MD This examination was interpreted and the report reviewed and electronically signed by: YOGESH DAVIS MD on Nov 21 2023 12:06PM [facility] DIVISION OF RADIOLOGY * * *Final Report* * * DATE OF EXAM: Nov 21 2023 9:15AM [id number] - XR CHEST 2V FRONTAL/LAT / PROCEDURE REASON: Pneumonia due to infectious organism, unspecified laterality, unspecified part o * * * * Physician Interpretation * * * * EXAMINATION: CHEST RADIOGRAPH (2 VIEW FRONTAL & LATERAL) CLINICAL HISTORY: Pneumonia due to infectious organism, unspecified laterality, unspecified part of lung MQ: XC2_6 EXAM DATE/TIME: 11/21/2023 9:15 AM COMPARISON: Chest x-ray dated 05/31/2023 and 04/19/2023; PET/CT scan dated 05/20/23 RESULT: Lines, tubes, and devices: None. Lungs and pleura: Bilateral perihilar consolidative opacities, left greater than right, most likely related to post radiation change, stable. Subpleural nodularity in the left upper lobe, stable. No pleural effusion. No pneumothorax. Cardiomediastinal silhouette: Normal cardiomediastinal silhouette. Bones and soft tissues: Unremarkable. DIVISION OF RADIOLOGY Provider, [facility] - 11/21/2023 * * *Final Report* * * DATE OF EXAM: Nov 21 2023 9:15AM [id number] - XR CHEST 2V FRONTAL/LAT / PROCEDURE REASON: Pneumonia due to infectious organism, unspecified laterality, unspecified part o * * * * Physician Interpretation * * * * EXAMINATION: CHEST RADIOGRAPH (2 VIEW FRONTAL & LATERAL) CLINICAL HISTORY: Pneumonia due to infectious organism, unspecified laterality, unspecified part of lung MQ: XC2_6 EXAM DATE/TIME: 11/21/2023 9:15 AM COMPARISON: Chest x-ray dated 05/31/2023 and 04/19/2023; PET/CT scan dated 05/20/23 RESULT: Lines, tubes, and devices: None. Lungs and pleura: Bilateral perihilar consolidative opacities, left greater than right, most likely related to post radiation change, stable. Subpleural nodularity in the left upper lobe, stable. No pleural effusion. No pneumothorax. Cardiomediastinal silhouette: Normal cardiomediastinal silhouette. Bones and soft tissues: Unremarkable. IMPRESSION IMPRESSION: 1. No interval change since 05/31/23. 2. Bilateral perihilar consolidative opacities, left greater than right, most likely related to post radiation change, stable. Jig Borer: DEDE Transcribe Date/Time: Nov 21 2023 11:58A Dictated by : YOGESH DAVIS MD This examination was interpreted and the report reviewed and electronically signed by: YOGESH DAVIS MD on Nov 21 2023 12:06PM EST [facility] Radiology Study observation (narrative) [facility] XR Chest PA and LateralOrder ed By: [facility] Provider on 11-21-2023 [facility] CBC W Auto Differential pane l (Bld)on 11-11-2023 Basophils (Bld) [#/Vol] 0.04 10*3/uL [facility] Differential cell count method Nom (Bld) Auto [facility] Eosinophils (Bld) [#/Vol] 0.26 10*3/uL [facility] Immature granulocytes (Bld) [#/Vol] 0.04 10*3/uL [facility] Immature granulocytes/100 WBC (Bld) 0.5 % [facility] Lymphocytes (Bld) [#/Vol] 2.39 10*3/uL [facility] Monocytes (Bld) [#/Vol] 0.79 10*3/uL [facility] Neutrophils (Bld) [#/Vol] 4.64 10*3/uL [facility] Nucleated RBC (Bld) [#/Vol] [facility] Nucleated RBC/100 WBC (Bld) [Ratio] 0.0 % /100 WBC [facility] Platelet mean volume (Bld) [Entitic vol] 9.0 fL 9.0 - 12.7 fL [facility] Platelets (Bld) [#/Vol] 271 10*3/uL [facility] WBC (Bld) [#/Vol] 8.16 10*3/uL [facility] CBC W AUTO DIFF BLDon [facility]OPHILS # [facility] Auto [facility] EOSINOPHIL # BLD AUTO 0.26 [facility] LYMPHOCYTES # [facility] 2.39 [facility] # BLD AUTO 0.79 [facility] NEUTROPHILS # BLD AUTO 4.64 [facility] NRBC # BLD AUTO <0.01 [facility] NRBC/100 WBC BLD-RTO 0.0 /[address] [facility] PLATELET # BLD AUTO [address] [facility] PMV BLD AUTO 9.0 fL 9.0 - 12.[address] [facility] WBC # BLD AUTO 8.16 [facility] IMM GRANULOCYTES # BLD AUTO 0.[address] [facility] IMM GRANULOCYTES/LEUK NFR BLD AUTO 0.5 % [facility] Specimen Type: BLOOD SPECIMEN Ordering Facility: [facility] Address: [address] [place] [address] Original Ordering [facility] Comprehensive metabolic 2000 panelOrdered By: Saran Johnson on 11-11-2023 Albumin [Mass/Vol] 4.3 g/dL 3.9 - 4.9 g/dL [facility] ALP [Catalytic activity/Vol] 74 U/L 34 - 123 U/L [facility] ALT [Catalytic activity/Vol] 38 U/L 7 - 38 U/L [facility] Anion gap [Moles/Vol] 10 mmol/L 8 - 15 mmol/L [facility] AST [Catalytic activity/Vol] 34 U/L 13 - 35 U/L [facility] Bilirubin [Mass/Vol] 0.2 mg/dL 0.2 - 1 .3 mg/dL [facility] Calcium [Mass/Vol] 9.5 mg/dL 8.5 - 10. 2 mg/dL [facility] Chloride [Moles/Vol] 104 mmol/L 98 - 10 7 mmol/L [facility] CO2 [Moles/Vol] 29 mmol/L 22 - 30 mmol/L [facility] Creatinine [Mass/Vol] 0.74 mg/dL 0.58 - 0.96 mg/dL [facility] GFR/1.73 sq M.predicted among non-blacks MDRD (S/P/Bld) [Vol rate/Area] 104 mL/min/{1.73_m2} - PINF [facility] Comment on above: Estimated Glomerular Filtration [...] not accurately reflect actual GFR. Glucose [Mass/Vol] 89 mg/dL 74 - 99 mg/dL [facility] Comment on above: The [place] Diabete s Association (ADA) provides guidance for [...] Standards of Medical Care in Diabetes 2016, [place] Diabetes Association. Diabetes Care. 2016.39(Suppl 1). Interpretation and review of laboratory results Normal [facility] Potassium [Moles/Vol] 4.8 mmol/L 3.7 - 5.1 mmol/L [facility] Protein [Mass/Vol] 6.7 g/dL 6.3 - 8.0 g/dL [facility] Sodium [Moles/Vol] 143 mmol/L 136 - 144 mmol/L [facility] Urea nitrogen [Mass/Vol] 15 mg/dL 7 - 21 mg/dL [facility] IMMUNOGLOBULIN Lorenzo IgG [Mass/Vol] 878 mg/dL 700 - 1600 mg/dL [facility] IgG [Mass/Vol]on 11-11-2023 Interpretation and review of laboratory results Normal [facility] Laboratory - Hematology and Cell countson 11-11-2023 Basophils/100 WBC (Bld) 0.5 % [facility] Eosinophils/100 WBC (Bld) 3.2 % [facility] Erythrocyte distribution width (RBC) [Ratio] 13.7 % 11.5 - 15.0 % [facility] Hematocrit (Bld) [Volume fraction] 42.1 % 36.0 - 46.0 % [facility] Hemoglobin (Bld) [Mass/Vol] 14.1 g/dL 11.5 - 15.5 g/dL [facility] Lymphocytes/100 WBC (Bld) 29.3 % [facility] MCH (RBC) [Entitic mass] 31.4 pg 26.0 - 34.0 pg [facility] MCHC (RBC) [Mass/Vol] 33.5 g/dL 30.5 - 36.0 g/dL [facility] MCV (RBC) [Entitic vol] 93.8 fL 80.0 - 100.0 fL [facility] Monocytes/100 WBC (Bld) 9.7 % [facility] Neutrophils/100 WBC (Bld) 56.8 % [facility] RBC (Bld) [#/Vol] 4.49 10*6/uL 3.90 - 5.2 0 m/uL [facility] No Panel Informationon 11-10 [facility] OXIMETRY WITH AMBULATIONon 0 10-15-2023 Anh Weber, [...] NAME: Anh Weber RRT PATIENT NAME: Celso Weller DATE: October 15, 2023 TIME: 10:45 AM Comment: [facility] No Panel Informationon 10-08 Radiology Study observation (narrative) [facility] XR Foot - bilateral AP and L ateral and obliqueon 10-09-2023 IMPRESSION: 1. No erosive arthropathy 2. Bilateral calcaneal enthesophytes [facility] Transcribe Date/Time: Oct 09 2023 2:40P Dictated by : NICO HILLIARD MD This examination was interpreted and the report reviewed and electronically signed by: NICO HILLIARD MD on Oct 09 2023 2:42PM [facility] DIVISION OF RADIOLOGY * * *Final Report* [...] Small calcaneal enthesophytes. DIVISION OF RADIOLOGY Provider, Richard Dorsey - 10/09/2023 * * *Final Report* * [...] No erosive arthropathy 2. Bilateral calcaneal enthesophytes Jig Borer: [facility] Transcribe Date/Time: Oct 09 2023 2:40P Dictated by : NICO HILLIARD MD This examination was interpreted and the report reviewed and electronically signed by: NICO HILLIARD MD on Oct 09 2023 2:42PM [facility] XR Hand - bilateral PA and L ateral and Obliqueon 10-09-2023 IMPRESSION: 1. Minimal osteoarthritis Jig Borer: [facility] Transcribe Date/Time: Oct 09 2023 2:39P Dictated by : NICO HILLIARD MD This examination was interpreted and the report reviewed and electronically signed by: NICO HILLIARD MD on Oct 09 2023 2:40PM [facility] DIVISION OF RADIOLOGY * * *Final Report* [...] tissues are unremarkable. DIVISION OF RADIOLOGY Provider, [facility] - 10/09/2023 * * *Final Report* [...] are unremarkable. IMPRESSION IMPRESSION: 1. Minimal osteoarthritis Jig Borer: DEDE Transcribe Date/Time: Oct 09 2023 2:39P Dictated by : NICO HILLIARD MD This examination was interpreted and the report reviewed and electronically signed by: NICO HILLIARD MD on Oct 09 2023 2:40PM EST [facility] XR Knee - bilateral 4 Viewso n 10-09-2023 IMPRESSION: 1. Mild patellofemoral osteoarthritis Jig Borer: PSCB Transcribe Date/Time: Oct 09 2023 2:42P Dictated by : NICO HILLIARD MD This examination was interpreted and the report reviewed and electronically signed by: NICO HILLIARD MD on Oct 09 2023 2:43PM [facility] DIVISION OF RADIOLOGY * * *Final Report* [...] No joint effusions. DIVISION OF RADIOLOGY Provider, [facility] - 10/09/2023 * * *Final Report* [...] effusions. IMPRESSION IMPRESSION: 1. Mild patellofemoral osteoarthritis Jig Borer: [facility] Transcribe Date/Time: Oct 09 2023 2:42P Dictated by : NICO HILLIARD MD This examination was interpreted and the report reviewed and electronically signed by: NICO HILLIARD MD on Oct 09 2023 2:43PM [facility] XR Sacroiliac Joint Viewson 10-09-2023 IMPRESSION: 1. Mild degenerative changes at sacroiliac joints. No active sacroiliitis evident Jig Borer: [facility] Transcribe Date/Time: Oct 09 2023 2:37P Dictated by : NICO HILLIARD MD This examination was interpreted and the report reviewed and electronically signed by: NICO HILLIARD MD on Oct 09 2023 2:39PM [facility] DIVISION OF RADIOLOGY * * *Final Report* [...] head bone islands. DIVISION OF RADIOLOGY Provider, [facility] Katja Sparrow [facility] - 10/09/2023 * * *Final Report* [...] at sacroiliac joints. No active sacroiliitis evident [facility]ig Borer: [facility] Transcribe Date/Time: Oct 09 2023 2:37P Dictated by : NICO HILLIARD MD This examination was interpreted and the report reviewed and electronically signed by: NICO HILLIARD MD on Oct 09 2023 2:39PM EST [facility] XR Sacroiliac Joint ViewsOrd ered By: Ccwillian Provider on 10-09-2023 [facility] Additional Injections: R ext ensor compartment 1on 08-27-2023 Alex Bruner PA-C 08/27/2023 8:19 AM Additional Injections: R extensor compartment 1 for de Quervain's tenosynovitis Informed Consent Consent Obtained: Verbal [place] Protocol A moment to CARE was completed. [...] Plan of Care Visit completed when applicable [facility] CBC W Auto Differential pane l (Bld)on 08-05-2023 Basophils (Bld) [#/Vol] 0.03 10*3/uL [facility] Basophils/100 WBC (Bld) 0.2 % [facility] Differential cell count method Nom (Bld) Auto [facility] Eosinophils (Bld) [#/Vol] 0.09 10*3/uL [facility] Eosinophils/100 WBC (Bld) 0.6 % [facility] Erythrocyte distribution width (RBC) [Ratio] 12.8 % 11.5 - 15.0 % [facility] Hematocrit (Bld) [Volume fraction] 42.8 % 36.0 - 46.0 % [facility] Hemoglobin (Bld) [Mass/Vol] 14.1 g/dL 11.5 - 15.5 g/dL [facility] Immature granulocytes (Bld) [#/Vol] 0.20 10*3/uL High [facility] Immature granulocytes/100 WBC (Bld) 1.3 % [facility] Interpretation and review of laboratory results Abnormal [facility] Lymphocytes (Bld) [#/Vol] 2.35 10*3/uL [facility] Lymphocytes/100 WBC (Bld) 15.0 % [facility] MCH (RBC) [Entitic mass] 31.1 pg 26.0 - 34.0 pg [facility] MCHC (RBC) [Mass/Vol] 32.9 g/dL 30.5 - 36.0 g/dL [facility] MCV (RBC) [Entitic vol] 94.5 fL 80.0 - 100.0 fL [facility] Monocytes (Bld) [#/Vol] 0.84 10*3/uL [facility] Monocytes/100 WBC (Bld) 5.4 % [facility] Neutrophils (Bld) [#/Vol] 12.14 10*3/uL High [facility] Neutrophils/100 WBC (Bld) 77.5 % [facility] Nucleated RBC (Bld) [#/Vol] [facility] Nucleated RBC/100 WBC (Bld) [Ratio] 0.0 % /100 WBC [facility] Platelet mean volume (Bld) [Entitic vol] 9.2 fL 9.0 - 12.7 fL [facility] Platelets (Bld) [#/Vol] 332 10*3/uL [facility] RBC (Bld) [#/Vol] 4.53 10*6/uL 3.90 - 5.2 0 m/uL [facility] WBC (Bld) [#/Vol] 15.65 10*3/uL [facility] Comprehensive metabolic 2000 panelOrdered By: Saran Johnson on 08-05-2023 Albumin [Mass/Vol] 3.9 g/dL 3.9 - 4.9 g/dL [facility] ALP [Catalytic activity/Vol] 69 U/L 34 - 123 U/L [facility] ALT [Catalytic activity/Vol] 58 U/L High 7 - 38 U/L [facility] Anion gap [Moles/Vol] 10 mmol/L 8 - 15 mmol/L [facility] AST [Catalytic activity/Vol] 25 U/L 13 - 35 U/L [facility] Bilirubin [Mass/Vol] 0.5 mg/dL 0.2 - 1 .3 mg/dL [facility] Calcium [Mass/Vol] 9.7 mg/dL 8.5 - 10. 2 mg/dL [facility] Chloride [Moles/Vol] 103 mmol/L 98 - 10 7 mmol/L [facility] CO2 [Moles/Vol] 29 mmol/L 22 - 30 mmol/L [facility] Creatinine [Mass/Vol] 0.90 mg/dL 0.58 - 0.96 mg/dL [facility] GFR/1.73 sq M.predicted among non-blacks MDRD (S/P/Bld) [Vol rate/Area] 83 mL/min/{1.73_m2} - PINF [facility] Comment on above: Estimated Glomerular Filtration [...] 109 mg/dL High 74 - 99 mg/dL [facility] Comment on above: The [place] Diabete s Association (ADA) provides guidance for [...] Standards of Medical Care in Diabetes 2016, [place] [employer] Association. Diabetes Care. 2016.39(Suppl 1). Interpretation and review of laboratory results Abnormal [facility] Potassium [Moles/Vol] 3.6 mmol/L Low 3.7 - 5.1 mmol/L [facility] Protein [Mass/Vol] 6.7 g/dL 6.3 - 8.0 g/dL [facility] Sodium [Moles/Vol] 142 mmol/L 136 - 144 mmol/L [facility] Urea nitrogen [Mass/Vol] 15 mg/dL 7 - 21 mg/dL [facility] ESR Westergren method (Bld) [Velocity]on 08-05-2023 ESR (Bld) [Velocity] 17 mm/h [facility] Interpretation and review of laboratory results Normal [facility] XR Esophagus Views W lara Prado 07-19-2023 IMPRESSION: NORMAL ESOPHAGRAM. Jig Borer: DEDE Transcribe Date/Time: Jul 19 2023 2:16P Dictated by : ADDIS SUTTON MD This examination was interpreted and the report reviewed and electronically signed by: RUPERTO PLASCENCIA MD on Jul 19 2023 2:33PM [facility] DIVISION OF RADIOLOGY * * *Final Report* [...] reproducing symptoms. Other Findings: None. Staff Physician: Ruperto Plascencia M.D. was present for the critical portions of the procedure and was immediately available throughout the remainder of the procedure. DIVISION OF RADIOLOGY Provider, [facility] - 07/19/2023 * * *Final Report* [...] reproducing symptoms. Other Findings: None. Staff Physician: Ruperto Plascencia M.D. was present for the critical portions of the procedure and was immediately available throughout the remainder of the procedure. IMPRESSION IMPRESSION: NORMAL ESOPHAGRAM. Jig Borer: PSCB Transcribe Date/Time: Jul 19 2023 2:16P Dictated by : ADDIS SUTTON MD This examination was interpreted and the report reviewed and electronically signed by: RUPERTO PLASCENCIA MD on Jul 19 2023 2:33PM EST [facility] Radiology Study observation (narrative) [facility] XR Esophagus Views W contras t POOrdered By: Ccf Provider on 07-19-2023 [facility] CNTHERAPYon 07-10-2023 CNTHERAPY OT/PT/Speech Visit ([facility]) CELSO WELLER ([id number]) 1980 F Date Time Provider Department 07/10/23 1:00 PM CYNTHIA GUAJARDO [facility] Date Time Provider Department Center 07/10/2023 1:00 PM [id number], MELANIE [facility] Jess Rachael Reason for Visit: [...] Fully Assessed Prescriptions as of 07/10/2023 - fluticasone-umeclidin- vilanter (TRELEGY ELLIPTA) 200-62.5-25 mcg inhalation powder Inhale 1 Puff as instructed once daily. - fluticasone (FLONASE ALLERGY RELIEF) 50 mcg/actuation nasal spray Use 1 [place] in each nostril once daily. - oxyCODONE [...] - azelastine 0.1% nasal spray Use 1 [place] in each nostril two times a day. [...] C No.3 (B COMPLEX PLUS VITAMIN C) 54-83-63-5-300 mg cap Take 1 tablet by mouth [...] will be off of it soon. Normal [facility] RF videography Hypopharynx a nd Esophagus Views W liquid and paste contrast PO during swallowingon 07-10-2023 IMPRESSION: THE VIC CH PATHOLOGIST REPORT AND RECOMMENDATIONS ARE PRESENT IN THE NOTES COMPONENT OF [facility] Jig Borer: PSCEdwin Transcribe Date/Time: Jul 10 2023 3:06P Dictated by : ERIC GREENFIELD MD This examination was interpreted and the report reviewed and electronically signed by: ERIC GREENFIELD MD on Jul 10 2023 3:06PM [facility] RADIOLOGY * * *Final Report* * [...] a swallowing evaluation by the speech pathologist. [facility] RADIOLOGY Provider, [facility] - 07/10/2023 * * *Final Report* * [...] ARE PRESENT IN THE NOTES COMPONENT OF [facility] Jig Borer: PSCB Transcribe Date/Time: Jul 10 2023 3:06P Dictated by : ERIC GREENFIELD MD This examination was interpreted and the report reviewed and electronically signed by: ERIC GREENFIELD MD on Jul 10 2023 3:06PM EST [facility] Radiology Study observation (narrative) [facility] RF videography Hypopharynx a nd Esophagus Views W liquid and paste contrast PO during swallowingOrdered By: Ccf Provider on 07-10-2023 [facility] XR MOD BARIUM SWALLOW W SPEE [...] PRESENT IN THE NOTES COMPONENT OF [facility] Jig Borer: DEDE Transcribe Date/Time: Jul 10 2023 3:06P Dictated by : ERIC GREENFIELD MD This examination was interpreted and the report reviewed and electronically signed by: ERIC GREENFIELD MD on Jul 10 2023 3:06PM EST [id number] [facility] CBC W Auto Differential pane l (Bld)on 06-10-2023 Basophils (Bld) [#/Vol] 0.03 10*3/uL [facility] Basophils/100 WBC (Bld) 0.3 % [facility] Differential cell count method Nom (Bld) Auto [facility] Eosinophils (Bld) [#/Vol] 0.08 10*3/uL [facility] Eosinophils/100 WBC (Bld) 0.7 % [facility] Erythrocyte distribution width (RBC) [Ratio] 14.2 % 11.5 - 15.0 % [facility] Hematocrit (Bld) [Volume fraction] 44.1 % 36.0 - 46.0 % [facility] Hemoglobin (Bld) [Mass/Vol] 14.6 g/dL 11.5 - 15.5 g/dL [facility] Immature granulocytes (Bld) [#/Vol] 0.06 10*3/uL [facility] Immature granulocytes/100 WBC (Bld) 0.5 % [facility] Interpretation and review of laboratory results Abnormal [facility] Lymphocytes (Bld) [#/Vol] 2.11 10*3/uL [facility] Lymphocytes/100 WBC (Bld) 18.3 % [facility] MCH (RBC) [Entitic mass] 31.5 pg 26.0 - 34.0 pg [facility] MCHC (RBC) [Mass/Vol] 33.1 g/dL 30.5 - 36.0 g/dL [facility] MCV (RBC) [Entitic vol] 95.2 fL 80.0 - 100.0 fL [facility] Monocytes (Bld) [#/Vol] 0.67 10*3/uL NINF [facility] Monocytes/100 WBC (Bld) 5.8 % [facility] Neutrophils (Bld) [#/Vol] 8.55 10*3/uL High [facility] Neutrophils/100 WBC (Bld) 74.4 % [facility] Nucleated RBC (Bld) [#/Vol] [facility] Nucleated RBC/100 WBC (Bld) [Ratio] 0.0 % /100 WBC [facility] Platelet mean volume (Bld) [Entitic vol] 8.8 fL Low 9.0 - 12.7 fL [facility] Platelets (Bld) [#/Vol] 312 10*3/uL [facility] RBC (Bld) [#/Vol] 4.63 10*6/uL 3.90 - 5.2 0 m/uL [facility] WBC (Bld) [#/Vol] 11.50 10*3/uL [facility] Comprehensive metabolic 2000 panelOrdered By: Zaira Rivera on 06-10-2023 Albumin [Mass/Vol] 4.1 g/dL 3.9 - 4.9 g/dL [facility] ALP [Catalytic activity/Vol] 71 U/L 34 - 123 U/L [facility] ALT [Catalytic activity/Vol] 41 U/L High 7 - 38 U/L [facility] Anion gap [Moles/Vol] 14 mmol/L 9 - 18 mmol/L [facility] AST [Catalytic activity/Vol] 27 U/L 13 - 35 U/L [facility] Bilirubin [Mass/Vol] 0.5 mg/dL 0.2 - 1 .3 mg/dL [facility] Calcium [Mass/Vol] 9.5 mg/dL 8.5 - 10. 2 mg/dL [facility] Chloride [Moles/Vol] 104 mmol/L 97 - 10 5 mmol/L [facility] CO2 [Moles/Vol] 24 mmol/L 22 - 30 mmol/L [facility] Creatinine [Mass/Vol] 0.74 mg/dL 0.58 - 0.96 mg/dL [facility] GFR/1.73 sq M.predicted among non-blacks MDRD (S/P/Bld) [Vol rate/Area] 105 mL/min/{1.73_m2} - PINF [facility] Comment on above: Estimated Glomerular Filtration [...] 137 mg/dL High 74 - 99 mg/dL [facility] Comment on above: The [place] Diabete s Association (ADA) provides guidance for [...] Standards of Medical Care in Diabetes 2016, [place] Diabetes [employer]. Diabetes Care. 2016.39(Suppl 1). Interpretation and review of laboratory results Abnormal [facility] Potassium [Moles/Vol] 3.9 mmol/L 3.7 - 5.1 mmol/L [facility] Protein [Mass/Vol] 6.6 g/dL 6.3 - 8.0 g/dL [facility] Sodium [Moles/Vol] 142 mmol/L 136 - 144 mmol/L [facility] Urea nitrogen [Mass/Vol] 19 mg/dL 7 - 21 mg/dL [facility] ESR Westergren method (Bld) [Velocity]on 06-10-2023 ESR (Bld) [Velocity] 5 mm/h [facility] Interpretation and review of laboratory results Normal [facility] IMMUNOGLOBULIN Lorenzo IgG [Mass/Vol] 836 mg/dL 700 - 1600 mg/dL [facility] IgG [Mass/Vol]on 06-10-2023 Interpretation and review of laboratory results Normal [facility] T4/FTI/T4Uon 06-10-2023 FTI 8.4 ug/dL 5.3 - 10.8 ug/dL [facility] Interpretation and review of laboratory results Normal [facility] T4 [Mass/Vol] 8.3 ug/dL 5.5 - 10.2 ug/dL [facility] T4 uptake [Mass/Vol] 0.99 0.91 - 1.[address] [facility] THYROID STIMULATING HORMONEo n 06-10-2023 TSH Qn 0.445 m[IU]/L [facility] Comment on above: If the patient [...] Lopes, et al. 2017 Guidelines of the [place] Thyroid Association for the Diagnosis and Management of Thyroid Disease during and the . Thyroid, 2017:27:3:315-389. TSH Qnon 06-10-2023 Interpretation and review of laboratory results Normal [facility] XR Chest PA and Lateralon [facility] PET+CT Guidance for localiza tion of tumor of Skull base to mid-thigh-- W 18F-FDG Amira 05-21-2023 IMPRESSION: HEAD/NECK: * No FDG avid neoplastic process. CHEST: * No FDG avid neoplastic process. * Small left pleural effusion; mildly increased in size in the interim. Otherwise no significant change in the appearance of the chest. ABDOMEN/PELVIS: * No FDG avid neoplastic process. MUSCULOSKELETAL: * No FDG avid neoplastic process. *Deauville score: 1 - score 1 : no uptake - score 2 : uptake <= mediastinum - score 3 : uptake > mediastinum, but <= liver - score 4 : uptake moderately higher than liver - score 5 : uptake markedly higher than liver and/or new lesions - score X : new areas of uptake unlikely to be related to lymphoma Transcribe Date/Time: May 21 2023 12:31P Dictated by: LUANN CARTAGENA MD This examination was interpreted and the report reviewed and electronically signed by: LUANN CARTAGENA MD on May 21 2023 12:49PM EST Thank you for allowing us to participate in the care of your patient. Should there be any questions regarding this interpretation, please call [phone]. If you are unable to reach us at the number above, please feel free to contact [facility] at [phone]. 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 INDICATION: Subsequent treatment strategy. TECHNIQUE: Radiopharmaceutical was administered IV followed about 60 minutes later by PET imaging from eyes to proximal thighs. Free breathing, low dose CT of the same body region was acquired without IV contrast for attenuation correction and anatomic localization. * CT Dose-Length Product (DLP): 289 mGy*cm * CT Dose Reduction Employed: Yes * Blood glucose (mg/dL): 89 * Radiopharmaceutical Dose: 12.1 mCi * Radiopharmaceutical: [id number] (FDG) COMPARISON: FDG PET/CT dated 01/28/2023. CORRELATION: None. RESULT: REFERENCES: SUV reference values: * Blood pool (descending aorta) activity: SUVmax 2.8 * Background liver activity: SUVmax 3.6; SUVmean 2.7 Explosive Operator Supervisor (topogram) images: No additional findings. Notes and limitations: * Standardized uptake values indicate the highest activity concentration (SUVmax) at a given location but can be variable and are not absolute. * Physiologic/non-neopla stic uptake is common in the brain, extraocular muscles, oral cavity, tonsils, salivary glands, vocal cords, myocardium, liver, GI tract, urinary tract, and bone marrow among others. Certain regions and organ systems can have more intense uptake, which could confound or obscure some pathology. * Unenhanced imaging is limited for the evaluation of some pathology and the acquired CT was not designed to produce or replace diagnostic CT scan quality. * PET-CT is often not sensitive for pulmonary nodules less than 8 mm. HEAD AND NECK: Imaged Head: No abnormal uptake. Neck & Lymph Nodes: No abnormal uptake. Thyroid: No abnormal uptake. CHEST: Lungs & Airways: Pleural parenchymal opacities without significant FDG uptake in the left lung primarily involving the apical portion, perihilar and infrahilar portions, appears stable to less prominent, likely representing chronic atelectasis and/or scarring. No hypermetabolic consolidation, mass or nodules. Pleura & Pericardium: Small left pleural effusion; minimally increased in size in the interim. Cardiovascular: No abnormal uptake. Mediastinum & Lymph Nodes: No abnormal uptake. ABDOMEN AND PELVIS: Hepatobiliary: No abnormal uptake. Spleen: No abnormal uptake. Pancreas: No abnormal uptake. Adrenals: No abnormal uptake. Urinary Tract: No abnormal uptake. GI Tract: No abnormal uptake. Peritoneum: No abnormal uptake. Vasculature: No abnormal uptake. Retroperitoneum & Lymph Nodes: No abnormal uptake. Pelvis: No abnormal uptake. MUSCULOSKELETAL: Osseous: No abnormal uptake. Soft Tissues: No abnormal uptake. DIVISION OF RADIOLOGY Provider, 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 INDICATION: Subsequent treatment strategy. TECHNIQUE: Radiopharmaceutical was administered IV followed about 60 minutes later by PET imaging from eyes to proximal thighs. Free breathing, low dose CT of the same body region was acquired without IV contrast for attenuation correction and anatomic localization. * CT Dose-Length Product (DLP): 289 mGy*cm * CT Dose Reduction Employed: Yes * Blood glucose (mg/dL): 89 * Radiopharmaceutical Dose: 12.1 mCi * Radiopharmaceutical: [id number] (FDG) COMPARISON: FDG PET/CT dated 01/28/2023. CORRELATION: None. RESULT: REFERENCES: SUV reference values: * Blood pool (descending aorta) activity: SUVmax 2.8 * Background liver activity: SUVmax 3.6; SUVmean 2.7 Explosive Operator Supervisor (topogram) images: No additional findings. Notes and limitations: * Standardized uptake values indicate the highest activity concentration (SUVmax) at a given location but can be variable and are not absolute. * Physiologic/non-neopla stic uptake is common in the brain, extraocular muscles, oral cavity, tonsils, salivary glands, vocal cords, myocardium, liver, GI tract, urinary tract, and bone marrow among others. Certain regions and organ systems can have more intense uptake, which could confound or obscure some pathology. * Unenhanced imaging is limited for the evaluation of some pathology and the acquired CT was not designed to produce or replace diagnostic CT scan quality. * PET-CT is often not sensitive for pulmonary nodules less than 8 mm. HEAD AND NECK: Imaged Head: No abnormal uptake. Neck & Lymph Nodes: No abnormal uptake. Thyroid: No abnormal uptake. CHEST: Lungs & Airways: Pleural parenchymal opacities without significant FDG uptake in the left lung primarily involving the apical portion, perihilar and infrahilar portions, appears stable to less prominent, likely representing chronic atelectasis and/or scarring. No hypermetabolic consolidation, mass or nodules. Pleura & Pericardium: Small left pleural effusion; minimally increased in size in the interim. Cardiovascular: No abnormal uptake. Mediastinum & Lymph Nodes: No abnormal uptake. ABDOMEN AND PELVIS: Hepatobiliary: No abnormal uptake. Spleen: No abnormal uptake. Pancreas: No abnormal uptake. Adrenals: No abnormal uptake. Urinary Tract: No abnormal uptake. GI Tract: No abnormal uptake. Peritoneum: No abnormal uptake. Vasculature: No abnormal uptake. Retroperitoneum & Lymph Nodes: No abnormal uptake. Pelvis: No abnormal uptake. MUSCULOSKELETAL: Osseous: No abnormal uptake. Soft Tissues: No abnormal uptake. IMPRESSION IMPRESSION: HEAD/NECK: * No FDG avid neoplastic process. CHEST: * No FDG avid neoplastic process. * Small left pleural effusion; mildly increased in size in the interim. Otherwise no significant change in the appearance of the chest. ABDOMEN/PELVIS: * No FDG avid neoplastic process. MUSCULOSKELETAL: * No FDG avid neoplastic process. *Deauville score: 1 - score 1 : no uptake - score 2 : uptake <= mediastinum - score 3 : uptake > mediastinum, but <= liver - score 4 : uptake moderately higher than liver - score 5 : uptake markedly higher than liver and/or new lesions - score X : new areas of uptake unlikely to be related to lymphoma Transcribe Date/Time: May 21 2023 12:31P Dictated by: LUANN CARTAGENA MD This examination was interpreted and the report reviewed and electronically signed by: LUANN CARTAGENA MD on May 21 2023 12:49PM EST Thank you for allowing us to participate in the care of your patient. Should there be any questions regarding this interpretation, please call [phone]. If you are unable to reach us at the number above, please feel free to contact [facility] at [phone]. [facility] PET+CT Guidance for localiza tion of tumor of Skull base to mid-thigh-- W 18F-FDG IVOrdered By: Ccf Provider on 05-21-2023 [facility] GLUCOSE, BLOOD (POC)on 05-19 Glucose [Mass/Vol] 89 mg/dL 74 - 99 mg/dL [facility] Comment on above: Location:[facility], [address] [place] [address] , [place], [place], [facility] The Accu-Chek Inform II glucose meter has not been approved for testing on patients receiving intensive medical intervention or therapy and results from this point of care glucose test should not be used for patient management decisions in these cases. Inaccurate results may also occur from other interfering factors, such as N-acetylcysteine (blood concentrations of greater than 5mg/dL), galactose, extremes of hematocrit (<10 or >65), or high doses of ascorbic acid (vitamin C) greater than 3mg/dL. Consider alternate testing mechanisms (e.g. core lab, blood gas instrument) in the above situations. [facility] PET+CT Guidance for localiza tion of tumor of Skull base to mid-thigh-- W 18F-FDG Amira 05-20-2023 Radiology Study observation (narrative) [facility] NITRIC OXIDE, EXHALEDon 02-0 [facility] CORTISOL BLDon 01-29-2023 Cortisol [Mass/Vol] 1.9 ug/dL Low 4.8 - 19 .5 ug/dL [facility] Comment on above: Provided reference r edvin is from 6-10 AM sample collection time. Cortisol Reference Range: 6-10 AM = 4.8-19.5 ug/dL, 4-8 PM = 2.5-11.9 ug/dL Cortisol [Mass/Vol]on 2022 Interpretation and review of laboratory results Abnormal [facility] No Panel Informationon 01-29 Interpretation and review of laboratory results Normal [facility] PET+CT Guidance for localiza tion of tumor of Skull base to mid-thigh-- W 18F-FDG Amira 01-29-2023 IMPRESSION: 1. NECK: No FDG avid neoplastic process. No mass, adenopathy, or fluid collection. 2. CHEST: No FDG avid neoplastic process. No mass, adenopathy, or fluid collection. Interval decrease in size of the small left pleural effusion. 3. ABDOMEN/PELVIS: No FDG avid neoplastic process. No mass, adenopathy, or fluid collection. 4. EXTREMITIES/SKELETON: No FDG avid osseous process. No destructive/traumatic bony abnormality. *Deauville score: 1 - score 1 : no uptake - score 2 : uptake <= mediastinum - score 3 : uptake > mediastinum, but <= liver - score 4 : uptake moderately higher than liver - score 5 : uptake markedly higher than liver and/or new lesions - score X : new areas of uptake unlikely to be related to lymphoma Transcribe Date/Time: Jan 29 2023 12:49P Dictated by: LUANN CARTAGENA MD This examination was interpreted and the report reviewed and electronically signed by: LUANN CARTAGENA MD on Jan 29 2023 12:55PM EST Thank you for allowing us to participate in the care of your patient. Should there be any questions regarding this interpretation, please call [phone]. If you are unable to reach us at the number above, please feel free to contact [facility] at [phone]. 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 INDICATION: Study performed for subsequent treatment strategy. TECHNIQUE: F18-FDG administered IV was followed about 60 minutes later by PET imaging from skull base to proximal thigh. Free breathing low dose CT was performed without contrast for attenuation correction and anatomic localization. Blood glucose before FDG injection: 98 mg/dL FDG radionuclide dose: 13.[address] Dose-Length Product (DLP): 287 mGy*cm CT Dose Reduction Employed: Automatic exposure control used (AED) COMPARISON: PET/CT dated 08/14/2022 CORRELATION: CT scan of the chest dated 07/17/2022. RESULT: For reference maximum SUV values: Mediastinal blood pool 2.8. Background Liver: 3.8 NECK: Physiologic uptake seen in the visualized brain, parapharyngeal soft tissues, base of tongue, vocal cords, and salivary glands. No hypermetabolic cervical lymphadenopathy or hypermetabolic masses. No focal hypermetabolic thyroid lesion. CHEST: Physiologic uptake in the heart and mediastinal blood pool. Lungs, tracheobronchial tree and pleura: No hypermetabolic consolidation, mass or nodules. Small left pleural effusion; decreased in size in the interim. Pleural parenchymal opacities without significant FDG uptake in the left lung primarily involving the apical portion, perihilar and infrahilar portions, appears stable to less prominent, likely representing chronic atelectasis and/or scarring.. Please note that PET/CT is not sensitive for pulmonary nodules less than 8 mm. Mediastinum and Lymph nodes: No hypermetabolic hilar or mediastinal lymphadenopathy. No mediastinal mass. Chest wall and axilla: No hypermetabolic lesions. ABDOMEN AND PELVIS: Physiologic uptake seen in the and GI tracts. Liver: No hypermetabolic mass. Biliary: No bile duct dilation. Spleen: No hypermetabolic mass. No splenomegaly. Pancreas: No hypermetabolic mass. Adrenals: No hypermetabolic lesions. Kidneys: No stones, hydronephrosis, or hypermetabolic lesions. GI tract: No dilation or wall thickening. The appendix is normal in size and caliber. Mild colonic diverticulosis. No CT evidence of diverticulitis. Lymph nodes: No hypermetabolic abdominal or pelvic lymphadenopathy. Mesentery/Peritoneum: No ascites or hypermetabolic mass lesions. Vasculature: Vascular patency cannot be assessed due to lack of IV contrast. No aortic or iliac artery aneurysm. Pelvis: No hypermetabolic mass, ascites or fluid collection. BONES AND EXTREMITIES: No suspicious FDG avid foci are detected. The imaged portions of the skeleton disclose age-related degenerative changes, with no detectable destructive lytic or sclerotic lesions to suggest metastases. - DIVISION OF RADIOLOGY Provider, 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 INDICATION: Study performed for subsequent treatment strategy. TECHNIQUE: F18-FDG administered IV was followed about 60 minutes later by PET imaging from skull base to proximal thigh. Free breathing low dose CT was performed without contrast for attenuation correction and anatomic localization. Blood glucose before FDG injection: 98 mg/dL FDG radionuclide dose: 13.[address] Dose-Length Product (DLP): 287 mGy*cm CT Dose Reduction Employed: Automatic exposure control used (AED) COMPARISON: PET/CT dated 08/14/2022 CORRELATION: CT scan of the chest dated 07/17/2022. RESULT: For reference maximum SUV values: Mediastinal blood pool 2.8. Background Liver: 3.8 NECK: Physiologic uptake seen in the visualized brain, parapharyngeal soft tissues, base of tongue, vocal cords, and salivary glands. No hypermetabolic cervical lymphadenopathy or hypermetabolic masses. No focal hypermetabolic thyroid lesion. CHEST: Physiologic uptake in the heart and mediastinal blood pool. Lungs, tracheobronchial tree and pleura: No hypermetabolic consolidation, mass or nodules. Small left pleural effusion; decreased in size in the interim. Pleural parenchymal opacities without significant FDG uptake in the left lung primarily involving the apical portion, perihilar and infrahilar portions, appears stable to less prominent, likely representing chronic atelectasis and/or scarring.. Please note that PET/CT is not sensitive for pulmonary nodules less than 8 mm. Mediastinum and Lymph nodes: No hypermetabolic hilar or mediastinal lymphadenopathy. No mediastinal mass. Chest wall and axilla: No hypermetabolic lesions. ABDOMEN AND PELVIS: Physiologic uptake seen in the and GI tracts. Liver: No hypermetabolic mass. Biliary: No bile duct dilation. Spleen: No hypermetabolic mass. No splenomegaly. Pancreas: No hypermetabolic mass. Adrenals: No hypermetabolic lesions. Kidneys: No stones, hydronephrosis, or hypermetabolic lesions. GI tract: No dilation or wall thickening. The appendix is normal in size and caliber. Mild colonic diverticulosis. No CT evidence of diverticulitis. Lymph nodes: No hypermetabolic abdominal or pelvic lymphadenopathy. Mesentery/Peritoneum: No ascites or hypermetabolic mass lesions. Vasculature: Vascular patency cannot be assessed due to lack of IV contrast. No aortic or iliac artery aneurysm. Pelvis: No hypermetabolic mass, ascites or fluid collection. BONES AND EXTREMITIES: No suspicious FDG avid foci are detected. The imaged portions of the skeleton disclose age-related degenerative changes, with no detectable destructive lytic or sclerotic lesions to suggest metastases. - IMPRESSION IMPRESSION: 1. NECK: No FDG avid neoplastic process. No mass, adenopathy, or fluid collection. 2. CHEST: No FDG avid neoplastic process. No mass, adenopathy, or fluid collection. Interval decrease in size of the small left pleural effusion. 3. ABDOMEN/PELVIS: No FDG avid neoplastic process. No mass, adenopathy, or fluid collection. 4. EXTREMITIES/SKELETON: No FDG avid osseous process. No destructive/traumatic bony abnormality. *Deauville score: 1 - score 1 : no uptake - score 2 : uptake <= mediastinum - score 3 : uptake > mediastinum, but <= liver - score 4 : uptake moderately higher than liver - score 5 : uptake markedly higher than liver and/or new lesions - score X : new areas of uptake unlikely to be related to lymphoma Transcribe Date/Time: Jan 29 2023 12:49P Dictated by: LUANN CARTAGENA MD This examination was interpreted and the report reviewed and electronically signed by: LUANN CARTAGENA MD on Jan 29 2023 12:55PM EST Thank you for allowing us to participate in the care of your patient. Should there be any questions regarding this interpretation, please call [phone]. If you are unable to reach us at the number above, please feel free to contact [facility] at [phone]. [facility] PET+CT Guidance for localiza tion of tumor of Skull base to mid-thigh-- W 18F-FDG IVOrdered By: Ccf Provider on 01-29-2023 [facility] T4 FREE/FREE THYROXon 2022 Free T4 [Mass/Vol] 1.3 ng/dL 0.9 - 1.7 ng/dL [facility] TSH BLDon 01-29-2023 TSH Qn 0.980 m[IU]/L [facility] Comment on above: If the patient is pr egnant, TSH reference range varies by gestational period: First Trimester (weeks 9-12): 0.180-2.990 mIU/L Second Trimester: 0.110-3.980 mIU/L Third Trimester: 0.480-4.710 mIU/L Samuel Patel, et al. A Practical Approach for the Verifications and Determination of Site- and Trimester-Specific Reference Intervals for Thyroid Function tests in . Thyroid, 2019:29:3:412-420. Mirza Lopes, et al. 2017 Guidelines of the [place] Thyroid Association for the Diagnosis and Management of Thyroid Disease during and the . Thyroid, 2017:27:3:315-389. Urinalysis - AUTOMATEDon Appearance (U) clear [employer] Other Bilirubin Ql (U) Negative [employer] Other Color (U) bright yellow [employer] Other Glucose Ql (U) Negative [employer] Other Hemoglobin Ql (U) Negative [employer] Other Ketones Ql (U) Negative [employer] Other Leukocyte esterase Test strip Ql (U) trace [employer] Other Nitrite Ql (U) Negative [employer] Other pH (U) 6.0 [pH] [employer] Other Protein Ql (U) Negative [employer] Other Specific gravity (U) [Rel density] 1.010 [employer] Other Urobilinogen (U) [Mass/Vol] 0.2 mg/dL [employer] Other Urinalysis - AUTOMATED [employer] Other Urine Cultureon 01-29-2023 Bacteria identified Cx Nom (U) Reason for Exam Dysuria Urine Reason for Exam: Dysuria : Urine ORGANISM: Escherichia coli (O:ESCCOL) [place] Count >100,000 Aerobic RICARDO Charge (NMIC56) --- SUSCEPTIBILITY -- ORGANISM: O:ESCCOL ANTIBIOTIC INTERPRETATION RICARDO Amikacin S <16 Amoxacillin/K Clavulanate S <8 Ampicillin S <8 Ampicillin/Sulbactam S <4 Aztreonam S <4 Cefazolin S <2 Cefepime S <2 Ceftazidime S <1 Ceftazidime/Avibactam S <4 Ceftolozane/Tazobactam S <2 Ceftriaxone S <1 Cefuroxime S <4 Ciprofloxacin S <0.25 Ertapenem S <0.5 Gentamicin S <2 Levofloxacin S <0.5 Meropenem S <1 Meropenem/Vaborbactam S <2 Nitrofurantoin S <32 Piperacillin/Tazobacta m S <8 Tetracycline S <4 Tigecycline S <2 Tobramycin S <2 Trimethoprim/Sulfameth oxazole S <0.5 S = SUSCEPTIBLE I = [...] RESISTANT TO ALL B-LACTAM DRUGS. PERFORMED BY: [place] [address] PATHOLOGIST BUFFER MACHINE MARGARITA HAYWOOD M.D. Normal [facility] Comment on above: Performed By: #### C UU #### [address] CBC W Auto Differential pane l (Bld)on 01-28-2023 Basophils (Bld) [#/Vol] 0.04 10*3/uL [facility] Basophils/100 WBC (Bld) 0.5 % [facility] Differential cell count method Nom (Bld) Auto [facility] Eosinophils (Bld) [#/Vol] 0.13 10*3/uL [facility] Eosinophils/100 WBC (Bld) 1.5 % [facility] Erythrocyte distribution width (RBC) [Ratio] 13.3 % 11.5 - 15.0 % [facility] Hematocrit (Bld) [Volume fraction] 47.6 % High 36.0 - 46.0 % [facility] Hemoglobin (Bld) [Mass/Vol] 15.8 g/dL High 11.5 - 15.5 g/dL [facility] Immature granulocytes (Bld) [#/Vol] [facility] Immature granulocytes/100 WBC (Bld) 0.2 % [facility] Interpretation and review of laboratory results Abnormal [facility] Lymphocytes (Bld) [#/Vol] 2.60 10*3/uL [facility] Lymphocytes/100 WBC (Bld) 30.5 % [facility] MCH (RBC) [Entitic mass] 31.3 pg 26.0 - 34.0 pg [facility] MCHC (RBC) [Mass/Vol] 33.2 g/dL 30.5 - 36.0 g/dL [facility] MCV (RBC) [Entitic vol] 94.3 fL 80.0 - 100.0 fL [facility] Monocytes (Bld) [#/Vol] 0.62 10*3/uL NINF [facility] Monocytes/100 WBC (Bld) 7.3 % [facility] Neutrophils (Bld) [#/Vol] 5.12 10*3/uL [facility] Neutrophils/100 WBC (Bld) 60.0 % [facility] Nucleated RBC (Bld) [#/Vol] NINF [facility] Nucleated RBC/100 WBC (Bld) [Ratio] 0.0 % /100 WBC [facility] Platelet mean volume (Bld) [Entitic vol] 8.9 fL Low 9.0 - 12.7 fL [facility] Platelets (Bld) [#/Vol] 331 10*3/uL [facility] RBC (Bld) [#/Vol] 5.05 10*6/uL 3.90 - 5.2 0 m/uL [facility] WBC (Bld) [#/Vol] 8.53 10*3/uL [facility] Comprehensive metabolic 2000 panelOrdered By: Nova Degroot on 01-28-2023 Albumin [Mass/Vol] 4.7 g/dL 3.9 - 4.9 g/dL [facility] ALP [Catalytic activity/Vol] 85 U/L 34 - 123 U/L [facility] ALT [Catalytic activity/Vol] 48 U/L High 7 - 38 U/L [facility] Anion gap [Moles/Vol] 10 mmol/L 9 - 18 mmol/L [facility] AST [Catalytic activity/Vol] 37 U/L High 13 - 35 U/L [facility] Bilirubin [Mass/Vol] 0.4 mg/dL 0.2 - 1 .3 mg/dL [facility] Calcium [Mass/Vol] 10.1 mg/dL 8.5 - 10. 2 mg/dL [facility] Chloride [Moles/Vol] 99 mmol/L 97 - 10 5 mmol/L [facility] CO2 [Moles/Vol] 30 mmol/L 22 - 30 mmol/L [facility] Creatinine [Mass/Vol] 0.70 mg/dL 0.58 - 0.96 mg/dL [facility] GFR/1.73 sq M.predicted among non-blacks MDRD (S/P/Bld) [Vol rate/Area] 112 mL/min/{1.73_m2} - PINF [facility] Comment on above: Estimated Glomerular Filtration [...] not accurately reflect actual GFR. Glucose [Mass/Vol] 102 mg/dL High 74 - 99 mg/dL [facility] Comment on above: The [place] Diabete s Association (ADA) provides guidance for [...] Standards of Medical Care in Diabetes 2016, [place] Diabetes Association. Diabetes Care. 2016.39(Suppl 1). Interpretation and review of laboratory results Abnormal [facility] Potassium [Moles/Vol] 4.4 mmol/L 3.7 - 5.1 mmol/L [facility] Protein [Mass/Vol] 7.7 g/dL 6.3 - 8.0 g/dL [facility] Sodium [Moles/Vol] 139 mmol/L 136 - 144 mmol/L [facility] Urea nitrogen [Mass/Vol] 15 mg/dL 7 - 21 mg/dL [facility] GLUCOSE, BLOOD (POC)on 01-28 Glucose [Mass/Vol] 89 mg/dL 74 - 99 mg/dL [facility] Comment on above: Location:[facility], [address] [place] [address] , [place], [place], [facility] The Accu-Chek Inform II glucose meter has not been approved for testing on patients receiving intensive medical intervention or therapy and results from this point of care glucose test should not be used for patient management decisions in these cases. Inaccurate results may also occur from other interfering factors, such as N-acetylcysteine (blood concentrations of greater than 5mg/dL), galactose, extremes of hematocrit (<10 or >65), or high doses of ascorbic acid (vitamin C) greater than 3mg/dL. Consider alternate testing mechanisms (e.g. core lab, blood gas instrument) in the above situations. [facility] PET+CT Guidance for localiza tion of tumor of Skull base to mid-thigh-- W 18F-FDG Amira 01-28-2023 Radiology Study observation (narrative) [facility] CORTISOL BLDon 01-02-2023 Cortisol [Mass/Vol] 1.6 ug/dL Low 4.8 - 19 .5 ug/dL [facility] ESR Westergren method (Bld) [Velocity]on 01-02-2023 ESR (Bld) [Velocity] 2 mm/h 0 - 20 mm/hr Cl [facility] T4/FTI/T4Uon 01-02-2023 FTI 7.5 ug/dL 5.3 - 10.8 ug/dL [facility] T4 [Mass/Vol] 7.6 ug/dL 5.5 - 10.2 ug/dL [facility] T4 uptake [Mass/Vol] 1.01 0.91 - 1.19 [facility] TSH BLDon 01-02-2023 TSH Qn 1.820 m[IU]/L 0.270 - 4.200 mIU/L [facility] CBC W Auto Differential pane l (Bld)on 01-01-2023 Basophils (Bld) [#/Vol] <0.11 k/uL [facility] Basophils/100 WBC (Bld) 0.2 % [facility] Differential cell count method Nom (Bld) Auto [facility] Eosinophils (Bld) [#/Vol] 0.21 10*3/uL <0.46 k/uL [facility] Eosinophils/100 WBC (Bld) 2.6 % [facility] Erythrocyte distribution width (RBC) [Ratio] 13.8 % 11.5 - 15.0 % [facility] Hematocrit (Bld) [Volume fraction] 44.6 % 36.0 - 46.0 % [facility] Hemoglobin (Bld) [Mass/Vol] 14.6 g/dL 11.5 - 15.5 g/dL [facility] Immature granulocytes (Bld) [#/Vol] 0.08 10*3/uL <0.10 k/uL [facility] Immature granulocytes/100 WBC (Bld) 1.0 % [facility] Lymphocytes (Bld) [#/Vol] 2.56 10*3/uL 1.00 - 4.00 k/uL [facility] Lymphocytes/100 WBC (Bld) 32.0 % [facility] MCH (RBC) [Entitic mass] 31.1 pg 26.0 - 34.0 pg [facility] MCHC (RBC) [Mass/Vol] 32.7 g/dL 30.5 - 36.0 g/dL [facility] MCV (RBC) [Entitic vol] 94.9 fL 80.0 - 100.0 fL [facility] Monocytes (Bld) [#/Vol] 0.62 10*3/uL <0.87 k/uL [facility] Monocytes/100 WBC (Bld) 7.7 % [facility] Neutrophils (Bld) [#/Vol] 4.52 10*3/uL 1.45 - 7.50 k/uL [facility] Neutrophils/100 WBC (Bld) 56.5 % [facility] Nucleated RBC (Bld) [#/Vol] <0.01 k/uL [facility] Nucleated RBC/100 WBC (Bld) [Ratio] 0.0 /100 WBC [facility] Platelet mean volume (Bld) [Entitic vol] 9.0 fL 9.0 - 12.7 fL [facility] Platelets (Bld) [#/Vol] 320 10*3/uL 150 - 400 k/uL [facility] RBC (Bld) [#/Vol] 4.70 10*6/uL 3.90 - 5.2 0 m/uL [facility] WBC (Bld) [#/Vol] 8.01 10*3/uL 3.70 - 11. 00 k/uL [facility] Comprehensive metabolic 2000 panelon 01-01-2023 Albumin [Mass/Vol] 4.5 g/dL 3.9 - 4.9 g/dL [facility] ALP [Catalytic activity/Vol] 93 U/L 34 - 123 U/L [facility] ALT [Catalytic activity/Vol] 49 U/L High 7 - 38 U/L [facility] Anion gap [Moles/Vol] 9 mmol/L 9 - 18 mmol/L [facility] AST [Catalytic activity/Vol] 38 U/L High 13 - 35 U/L [facility] Bilirubin [Mass/Vol] 0.2 mg/dL 0.2 - 1 .3 mg/dL [facility] Calcium [Mass/Vol] 9.6 mg/dL 8.5 - 10. 2 mg/dL [facility] Chloride [Moles/Vol] 102 mmol/L 97 - 10 5 mmol/L [facility] CO2 [Moles/Vol] 28 mmol/L 22 - 30 mmol/L [facility] Creatinine [Mass/Vol] 0.68 mg/dL 0.58 - 0.96 mg/dL [facility] Estimated Glomerular Filtration Rate 113 mL/min/1.73m >=60 mL/min/1.73m [facility] Glucose [Mass/Vol] 102 mg/dL High 74 - 99 mg/dL [facility] Potassium [Moles/Vol] 4.4 mmol/L 3.7 - 5.1 mmol/L [facility] Protein [Mass/Vol] 7.3 g/dL 6.3 - 8.0 g/dL Cl [facility] Sodium [Moles/Vol] 139 mmol/L 136 - 144 mmol/L [facility] Urea nitrogen [Mass/Vol] 9 mg/dL 7 - 21 mg/dL [facility] LD LACTATE DEHYDROon 023 LDH [Catalytic activity/Vol] 283 U/L High 135 - 214 U/L [facility] MAGNESIUM BLDon 01-01-2023 Magnesium [Mass/Vol] 2.5 mg/dL High 1.7 - 2 .3 mg/dL [facility] CNPNon 10-18-2022 [facility] Telephone (CNFVM) CELSO WELLER ([id number]) 1980 F Date Time Provider Department 10/18/22 KYLIE MOSHERFVMónica During your visit today, we recorded the following information about you: Kylie Mosher RN 10/18/2022 3:19 PM Addendum Prior Authorization Documentation Prior authorization requested via Covermymeds for the following medication: Medication: Lyrica 100 mg capsules Approved and authorizes your coverage from 02/18/2022 - 02/17/2023, Insurance Company Name: [employer] Phone number: [phone] Patient ID number: [id number] Da Silva [id number] Pharmacy Name: [facility] Telephone number: [phone] Kylie Mosher RN October 18, 2022 1:38 PM Allergies As of Date: 10/18/2022 Noted Allergy Reaction CHLORHEXIDINE 03/11/2013 9 - Itching Comments: Severe skin irritation. Had used for central line care SULFA (SULFONAMIDE ANTIBIOTICS) 01/07/2012 2 - Rash Date Reviewed: 10/18/2022 Reviewed by: Irene Han APRN.SEWAGE DISPOSAL ENGINEER - Fully Assessed Reason for Visit: Insurance [...] C No.3 (B COMPLEX PLUS VITAMIN C) 27-01-62-5-300 mg cap Take 1 tablet by mouth [...] Insomnia [G47.00] (more content not included)... Normal [facility] GLUCOSE, BLOOD (POC)on 08-14 Glucose [Mass/Vol] 103 mg/dL Abnormal 74 - 99 mg/dL [facility] Comment on above: Location:[facility], [address] [place] [address] , [place], [place], [facility] The Accu-Chek Inform II glucose meter has not been approved for testing on patients receiving intensive medical intervention or therapy and results from this point of care glucose test should not be used for patient management decisions in these cases. Inaccurate results may also occur from other interfering factors, such as N-acetylcysteine (blood concentrations of greater than 5mg/dL), galactose, extremes of hematocrit (<10 or >65), or high doses of ascorbic acid (vitamin C) greater than 3mg/dL. Consider alternate testing mechanisms (e.g. core lab, blood gas instrument) in the above situations. Interpretation and review of laboratory results Abnormal [facility] PET+CT Guidance for localiza tion of tumor of Skull base to mid-thigh-- W 18F-FDG Amira 08-14-2022 IMPRESSION: 1. HEAD and NECK: No evidence [...] any questions regarding this interpretation, please call [phone]. If you are unable to reach us at the number above, please feel free to contact [facility] at [phone]. DIVISION OF RADIOLOGY * * *Final Report* [...] FDG avid neoplastic process. Degenerative arthritic change. DIVISION OF RADIOLOGY Provider, [facility] - 08/14/2022 * * *Final Report* * * DATE [...] FDG avid neoplastic process. Degenerative arthritic change. IMPRESSION IMPRESSION: 1. HEAD and NECK: No evidence [...] any questions regarding this interpretation, please call [phone]. If you are unable to reach us at the number above, please feel free to contact [facility] at [phone]. [facility] Radiology Study observation (narrative) [facility] PET+CT Guidance for localiza tion of tumor of Skull base to mid-thigh-- W 18F-FDG IVOrdered By: Ccf Provider on 08-14-2022 [facility] CBC AUTO DIFFon 06-21-2022 BASO # 0.0 103/ul Normal 0.0-0.1 [facility] Comment on above: Performed By: #### C BC #### [facility] [address] [place] [address] Dr. Kristina Morales Basophils/100 WBC (Bld) 0.4 % Normal 0.2-2.0 [facility] Comment on above: Performed By: #### C BC #### [facility] [address] [place] [address] Dr. Kristina Morales EO # 0.2 103/ul Normal 0.0-0.7 [facility] Comment on above: Performed By: #### C BC #### [facility] [address] [place] [address] Dr. Kristina Morales Eosinophils/100 WBC (Bld) 2.9 % Normal 0.9-7.0 [facility] Comment on above: Performed By: #### C BC #### [facility] [address] [place] [address] Dr. Kristina Morales Erythrocyte distribution width (RBC) [Ratio] 13.7 % Normal 11.0-15.0 [facility] Comment on above: Performed By: #### C BC #### [facility] [address] [place] [address] Dr. Kristina Morales Hematocrit (Bld) [Volume fraction] 44.2 % Normal 36.0-48.0 [facility] Comment on above: Performed By: #### C BC #### [facility] [address] [place] [address] Dr. Kristina Morales Hemoglobin (Bld) [Mass/Vol] 14.9 g/dL Normal 12.0-16.0 [facility] Comment on above: Performed By: #### C BC #### [facility] [address] [place] [address] Dr. Kristina Morales IG # 0.02 10e3/ul Normal 0.00-0.03 [facility] Comment on above: Performed By: #### C BC #### [facility] [address] [place] [address] Dr. Kristina Morales IG % 0.3 % Normal 0.0-0.5 [facility] Comment on above: Performed By: #### C BC #### [facility] [address] [place] [address] Dr. Kristina Morales LYMPH # 2.0 103/ul Normal 1.2-3.8 [facility] Comment on above: Performed By: #### C BC #### [facility] [address] [place] [address] Dr. Kristina Morales Lymphocytes/100 WBC (Bld) 27.8 % Normal 20.5-60.0 [facility] Comment on above: Performed By: #### C BC #### [facility] [address] [place] [address] Dr. Kristina Morales MANUAL DIFF REQ NO Normal [facility] Comment on above: Performed By: #### C BC #### [facility] [address] [place] [address] Dr. Kristina Morales MCH (RBC) [Entitic mass] 32.0 pg Normal 26.7-34.0 [facility] Comment on above: Performed By: #### C BC #### [facility] [address] [place] [address] Dr. Kristina Morales MCHC (RBC) [Mass/Vol] 33.7 g/dL Normal 29.9-35.2 [facility] Comment on above: Performed By: #### C BC #### [facility] [address] [place] [address] Dr. Kristina Morales MCV (RBC) [Entitic vol] 94.8 fL Normal 81.0-99.0 [facility] Comment on above: Performed By: #### C BC #### [facility] [address] [place] [address] Dr. Kristina Morales MONO # 0.7 103/ul Normal 0.3-0.8 [facility] Comment on above: Performed By: #### C BC #### [facility] [address] [place] [address] Dr. Kristina Morales Monocytes/100 WBC (Bld) 9.5 % Normal 1.7-12.0 [facility] Comment on above: Performed By: #### C BC #### [facility] [address] [place] [address] Dr. Kristina Morales NEUT # 4.2 103/ul Normal 1.4-6.5 [facility] Comment on above: Performed By: #### C BC #### [facility] [address] [place] [address] Dr. Kristina Morales Neutrophils/100 WBC (Bld) 59.1 % Normal 43.0-75.0 [facility] Comment on above: Performed By: #### C BC #### [facility] [address] [place] [address] Dr. Kristina Morales Platelet mean volume (Bld) [Entitic vol] 9.1 fL Critically low 9.5-13.5 [facility] Comment on above: Performed By: #### C BC #### [facility] [address] [place] [address] Dr. Kristina Morales PLT 302 103/ul Normal 150-450 [facility] Comment on above: Performed By: #### C BC #### [facility] [address] [place] [address] Dr. Kristina Morales RBC 4.66 106/ul Normal 4.20-5.40 [facility] Comment on above: Performed By: #### C BC #### [facility] [address] [place] [address] Dr. Kristina Morales WBC 7.2 103/ul Normal 4.0-11.0 [facility] Comment on above: Performed By: #### C BC #### [facility] [address] [place] [address] Dr. Kristina Morales CRPon 06-21-2022 CRP 2.2 mg/dL Critically high <=1.[address] [facility] Comment on above: Performed By: #### C RP, BMP #### [facility] [address] [place] [address] HEAD WO CONon [...] CONG SAID Date: 2022-06-21 05:34 Normal [facility] PROF CHEM 8 (BAS METB)on Anion gap [Moles/Vol] 11.9 mmol/L Normal [facility] Comment on above: Performed By: #### C RP, BMP #### [facility] [address] [place] [address] Dr. Kristina Morales Calcium [Mass/Vol] 9.5 mg/dL Normal 8.5-10.1 [facility] Comment on above: Performed By: #### C RP, BMP #### [facility] [address] [address] [address] Kristina Morales Chloride [Moles/Vol] 106 mmol/L Normal 98-107 [facility] Comment on above: Performed By: #### C RP, BMP #### [facility] [address] [address] [address] Kristina Morales CO2 [Moles/Vol] 26.7 mmol/L Normal 21.0-32.0 [facility] Comment on above: Performed By: #### C RP, BMP #### [facility] [address] [address] [address] Kristina Morales Creatinine [Mass/Vol] 0.91 mg/dL Normal 0.55-1.02 [facility] Comment on above: Performed By: #### C RP, BMP #### [facility] [address] [address] [address] Kristina Morales EGFR-AF LATVIAN >60 Normal >=60 [facility] Comment on above: Performed By: #### C RP, BMP #### [facility] [address] [place], [place] [address] Dr. Kristina Morales EGFR-NON AF LATVIAN >60 Normal >=60 [facility] Comment on above: Performed By: #### C RP, BMP #### [facility] [address] [place], [place] [address] Dr. Kristina Morales Glucose [Mass/Vol] 118 mg/dL Critically high 74-106 T [facility] Comment on above: Performed By: #### C RP, BMP #### [facility] [address] [place], [place] [address] Dr. Kristina Morales Potassium [Moles/Vol] 3.6 mmol/L Normal 3.5-5.1 [facility] Comment on above: Performed By: #### C RP, BMP #### [facility] [address] [place], [place] [address] Dr. Kristina Morales Sodium [Moles/Vol] 141 mmol/L Normal 136-145 [facility] Comment on above: Performed By: #### C RP, BMP #### [facility] [address] [place], [place] [address] Dr. Kristina Morales Urea nitrogen [Mass/Vol] 17.0 mg/dL Normal 7.0-18.0 [facility] Comment on above: Performed By: #### C RP, BMP #### [facility] [address] [place], [place] [address] Dr. Kristina Morales Urea nitrogen/Creatinine [Mass ratio] 18.7 mg/mg Normal [facility] Comment on above: Performed By: #### C RP, BMP #### [facility] [address] [place], [place] [address] CHEST WO IVCONon 06-01-19 [facility] GLUCOSE, BLOOD (POC)on 02-26 Glucose [Mass/Vol] 95 mg/dL 74 - 99 mg/dL [facility] Comment on above: Location:[facility], [address] [place] [address] , [place], [place], [address] The Accu-Chek Inform II glucose meter has not been approved for testing on patients receiving intensive medical intervention or therapy and results from this point of care glucose test should not be used for patient management decisions in these cases. Inaccurate results may also occur from other interfering factors, such as N-acetylcysteine (blood concentrations of greater than 5mg/dL), galactose, extremes of hematocrit (<10 or >65), or high doses of ascorbic acid (vitamin C) greater than 3mg/dL. Consider alternate testing mechanisms (e.g. core lab, blood gas instrument) in the above situations. [facility] PET+CT Guidance for localiza tion of tumor of Skull base to mid-thigh-- W 18F-FDG Amira 02-26-2022 IMPRESSION: 1. NECK: * Unchanged mildly hypermetabolic [...] to be related to lymphoma Transcribe Date/Time: Feb 26 2022 2:04P Dictated by: JORDAN WOODARD MD This examination was interpreted and the report reviewed and electronically signed by: JAKE BOSTON MD on Feb 26 2022 4:59PM EST Thank you for allowing us to participate in the care of your patient. Should there be any questions regarding this interpretation, please call [phone]. If you are unable to reach us at the number above, please feel free to contact [facility] eRadiology at [phone]. 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 INDICATION: Study performed for subsequent treatment strategy. TECHNIQUE: F18-FDG administered IV was followed about 60 minutes later by PET imaging from eyes to proximal thighs. Free breathing low dose CT was performed without contrast for attenuation correction and anatomic localization. Blood glucose before FDG injection: 95 mg/dL FDG radionuclide dose: 12.[address] Dose-Length Product (DLP): 329 mGy*cm. CT Dose Reduction Employed: Yes COMPARISON: PET/CT 11/13/2021 CORRELATION: CT chest 05/29/[address] abdomen/pelvis 03/02/2019 RESULT: Explosive Operator Supervisor (topogram) images: No additional findings. - Mediastinum [...] age-related degenerative changes. No destructive osseous lesions. DIVISION OF RADIOLOGY Provider, 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 INDICATION: Study performed for subsequent treatment strategy. TECHNIQUE: F18-FDG administered IV was followed about 60 minutes later by PET imaging from eyes to proximal thighs. Free breathing low dose CT was performed without contrast for attenuation correction and anatomic localization. Blood glucose before FDG injection: 95 mg/dL FDG radionuclide dose: 12.[address] Dose-Length Product (DLP): 329 mGy*cm. CT Dose Reduction Employed: Yes COMPARISON: PET/CT 11/13/2021 CORRELATION: CT chest 05/29/[address] abdomen/pelvis 03/02/2019 RESULT: Explosive Operator Supervisor (topogram) images: No additional findings. - Mediastinum [...] age-related degenerative changes. No destructive osseous lesions. IMPRESSION IMPRESSION: 1. NECK: * Unchanged mildly hypermetabolic [...] to be related to lymphoma Transcribe Date/Time: Feb 26 2022 2:04P Dictated by: JORDAN WOODARD MD This examination (more content not included)... [facility] Radiology Study observation (narrative) [facility] PET+CT Guidance for localiza tion of tumor of Skull base to mid-thigh-- W 18F-FDG IVOrdered By: Ccf Provider on 02-26-2022 [facility] CNOVon 01-25-2022 CNOV Office Visit (CNFVM) CELSO WELLER ([id number]) 1980 F TRN Date Time Provider Department 01/25/22 2:30 PM IRENE HAN During your visit today, we recorded the following information about you: Temperature Pulse Blood pressure Weight 98.6 degrees 109/minute 115/67 106.8 kg Irene Han APRN.CNP 01/25/2022 4:28 PM Signed PALLIATIVE MEDICINE PROGRESS NOTE SERVICE DATE: 01/25/2022 Primary Site of Disease/Medical Illness: Hodgkin Lymphoma Site of Metastasis: Liver, Lymph nodes, Spleen CHIEF COMPLAINT: pain, follow up PERTINENT MEDICAL HISTORY: Celso Weller is a 41 yo female with Hodgkin's Lymphoma diagnosed 01/16/2012 s/p autologous SCT (2013) and several other treatments due to recurrences in that time. She has undergone palliative radiation to spleen, liver, and lymph nodes per Dr. Del Valle. She is currently treated with Keytruda per Dr. Abimael Hernandez. Course has been c/b pulmonary embolus (on [...] will be meeting with a head athletic trainer to better understand the equipment upcoming. Has had some nausea since starting doxy for acne. Responsive to Compazine. Modified ESAS ([place] Symptom Assessment Scale) Information Provided By: Patient [...] No suspicious activity was identified. 01/25/2022 by Irene Han APRN.SEWAGE DISPOSAL ENGINEER Urine Screen Lab Results Component Value Date UAMPH Negative 02/24/2021 UBARB2 Negative 02/24/2021 UBENZ Negative 02/24/2021 UQBUPRE <20 02/24/2021 UQNORBUP <20 02/24/2021 UCOC2 Negative 02/24/2021 UQCANN <16 02/24/2021 UOPI Negative 02/24/2021 UOXYC Negative 02/24/2021 UPCP Negative 02/24/2021 UTHC Negative 02/24/2021 UETOH <11 0 (more content not included)... Normal [facility] PAIN PANEL, UR QUANTon 01-25 8-Cqszywzkfm-1,5-Dim ethyl-3,3-Diphenylpy rrolidine (EDDP) Confirm (U) [Mass/Vol] <6 Normal <6 [facility] Comment on above: Order Comment: Speci men Type: URINE SPECIMEN Ordering Facility: [facility] Address: [address] [place] [address] Result Comment: EDDP is a metabolite of methadone. Performed By: #### L [id number] #### [facility] CLIA [id number] [address] [place] [address] [place] 6-Monoacetylmorphine (6-BERNIE) (U) [Mass/Vol] <5 Normal <5 [facility] Comment on above: Order Comment: Speci men Type: URINE SPECIMEN Ordering Facility: [facility] Address: [address] [place] [address] Result Comment: 6-MA M (6-monoacetylmorphine, also known as 6-acetylmorphine) is a unique metabolite of heroin. Presence of 6-BERNIE indicates use of heroin. 6-BERNIE is further metabolized to morphine and absence of 6-BERNIE does not rule out the use of heroin. Performed By: #### L [id number] #### [facility] CLIA [id number] [address] [place] [address] [place] Amphetamine Confirm (U) [Mass/Vol] <5 Normal <5 [facility] Comment on above: Order Comment: Speci men Type: URINE SPECIMEN Ordering Facility: [facility] Address: [address] [place], [place] [address] Performed By: #### L [id number] #### [facility] CLIA [id number] [address] [place] [address] [place] Benzoylecgonine Confirm (U) [Mass/Vol] <24 Normal <24 [facility] Comment on above: Order Comment: Speci men Type: URINE SPECIMEN Ordering Facility: [facility] Address: [address] [address] Result Comment: Henry oylecgonine is a metabolite of cocaine. Performed By: #### L [id number] #### [facility] [place] [id number] [address] [place] [address] [place] Buprenorphine (U) [Mass/Vol] <20 Normal <20 [facility] Comment on above: Order Comment: Speci men Type: URINE SPECIMEN Ordering Facility: [facility] Address: [address] [address] Performed By: #### L [id number] #### [facility] CLIA [id number] [address] [place] [address] [place] Cannabinoids Confirm (U) [Mass/Vol] <16 Normal <16 [facility] Comment on above: Order Comment: Speci men Type: URINE SPECIMEN Ordering Facility: [facility] Address: [address] [place] [address] Result Comment: Tetr ahydrocannabinol carboxylic acid (THCA) is a metabolite of bmrnc-4-dnvxljawaemqwzfkzurt which is the main active component of marijuana. Performed By: #### L [id number] #### [facility] CLIA [id number] [address] [place] [address] [place] Codeine Confirm (U) [Mass/Vol] <11 Normal <11 [facility] Comment on above: Order Comment: Speci men Type: URINE SPECIMEN Ordering Facility: [facility] Address: [address] [address] Performed By: #### L [id number] #### [facility] CLIA [id number] [address] Dihydrocodeine Confirm (U) [Mass/Vol] <5 Normal <5 [facility] Comment on above: Order Comment: Speci men Type: URINE SPECIMEN Ordering Facility: [facility] Address: [address] [place] [address] Performed By: #### L [id number] #### [facility] CLIA [id number] [address] [place] [address] [place] fentaNYL Confirm (U) [Mass/Vol] <6 Normal <6 [facility] Comment on above: Order Comment: Speci men Type: URINE SPECIMEN Ordering Facility: [facility] Address: [address] [place] [address] Performed By: #### L [id number] #### [facility] [place] [id number] [address] [place] [address] HYDROcodone Confirm (U) [Mass/Vol] <8 Normal <8 [facility] Comment on above: Order Comment: Speci men Type: URINE SPECIMEN Ordering Facility: [facility] Address: [address] [place] [address] Result Comment: Hydr ocodone is a metabolite of dihydrocodeine. Performed By: #### L [id number] #### [facility] [place] [id number] [address] [place] [address] STATES [facility] HYDROmorphone Confirm (U) [Mass/Vol] <5 Normal <5 [facility] Comment on above: Order Comment: Speci men Type: URINE SPECIMEN Ordering Facility: [facility] Address: [address] [place] [address] Result Comment: Hydr omorphone is a metabolite of hydrocodone. Performed By: #### L [id number] #### [facility] CLIA [id number] [address] [place] [address] [place] Methadone Confirm (U) [Mass/Vol] <16 Normal <16 [facility] Comment on above: Order Comment: Speci men Type: URINE SPECIMEN Ordering Facility: [facility] Address: [address] [place] [address] Performed By: #### L [id number] #### [facility] CLIA [id number] [address] [place] [address] Methamphetamine Confirm (U) [Mass/Vol] <8 Normal <8 [facility] Comment on above: Order Comment: Speci men Type: URINE SPECIMEN Ordering Facility: [facility] Address: [address] [address] Performed By: #### L [id number] #### [facility] CLIA [id number] [address] [place] [address] Morphine Confirm (U) [Mass/Vol] <10 Normal <10 [facility] Comment on above: Order Comment: Speci men Type: URINE SPECIMEN Ordering Facility: [facility] Address: [address] [place] [address] Result Comment: Morp majo is a metabolite of codeine and heroin. Performed By: #### L [id number] #### [facility] CLIA [id number] [address] [place] [address] Norbuprenorphine (U) [Mass/Vol] <20 Normal <20 [facility] Comment on above: Order Comment: Speci men Type: URINE SPECIMEN Ordering Facility: [facility] Address: [address] [place] [address] Result Comment: Norb uprenorphine is the primary active metabolite of buprenorphine. Performed By: #### L [id number] #### [facility] CLIA [id number] [address] [place] [address] Norfentanyl Confirm (U) [Mass/Vol] <6 Normal <6 [facility] Comment on above: Order Comment: Speci men Type: URINE SPECIMEN Ordering Facility: [facility] Address: [address] [place] [address] Result Comment: Norf entanyl is a metabolite of fentanyl. Performed By: #### L [id number] #### [facility] CLIA [id number] [address] [place] [address] [place] Nortramadol (U) [Mass/Vol] <20 Normal <20 [facility] Comment on above: Order Comment: Speci men Type: URINE SPECIMEN Ordering Facility: [facility] Address: [address] [place] [address] Result Comment: Desm ethyltramadol is a metabolite of tramadol. Performed By: #### L [id number] #### [facility] CLIA [id number] [address] [place] [address] [place] NOTE,UR PAIN OCASIO Normal [facility] Comment on above: Order Comment: Speci men Type: URINE SPECIMEN Ordering Facility: [facility] Address: [address] [place] [address] Result Comment: This test is for medical use only. This test was developed and its performance characteristics determined by [facility] [place] [facility]). It has not been cleared or approved by the FDA. [facility] is regulated under CLIA as qualified to perform high-complexity testing. This test is used for clinical purposes. It should not be regarded as investigational or for research. Performed By: #### L [id number] #### [facility] CLIA [id number] [address] [place] [address] [place] oxyCODONE Confirm (U) [Mass/Vol] 2574 ng/mL High <10 [facility] Comment on above: Order Comment: Speci men Type: URINE SPECIMEN Ordering Facility: [facility] Address: [address] [place] [address] Result Comment: Oxyc odone is not a recognized metabolite of other opiates and its presence indicates use of an oxycodone containing drug. Oxycodone is metabolized to oxymorphone. Performed By: #### L [id number] #### [facility] CLIA [id number] [address] [place] oxyMORphone Confirm (U) [Mass/Vol] 2296 ng/mL High <5 [facility] Comment on above: Order Comment: Speci men Type: URINE SPECIMEN Ordering Facility: [facility] Address: [address] [place] [address] Result Comment: Oxym orphone may arise from oxymorphone containing drugs or by metabolism of oxycodone. Performed By: #### L [id number] #### [facility] CLIA [id number] [address] [place] [address] [place] traMADol Confirm (U) [Mass/Vol] <25 Normal <25 [facility] Comment on above: Order Comment: Speci men Type: URINE SPECIMEN Ordering Facility: [facility] Address: [address] [place] [address] Performed By: #### L [id number] #### [facility] CLIA [id number] [address] [place] [address] [place] SPECIMEN VALIDITY, URINEon 1 03-28-2021 CHROMATE,URINE <10 Normal <50 [facility] Comment on above: Order Comment: Speci men Type: URINE SPECIMEN Ordering Facility: [facility] Address: [address] [place] [address] Performed By: #### L [id number] #### [facility] CLIA [id number] [address] [place] [address] [place] CREATININE,URINE 78.6 mg/dL Normal 20.0-300.0 [facility] Comment on above: Order Comment: Speci men Type: URINE SPECIMEN Ordering Facility: [facility] Address: [address] [place] [address] Performed By: #### L [id number] #### [facility] CLIA [id number] [address] [place] [address] [place] NITRITES,URINE <50 Normal <500 [facility] Comment on above: Order Comment: Speci men Type: URINE SPECIMEN Ordering Facility: [facility] Address: [address] [place], [place] [address] Performed By: #### L [id number] #### [facility] CLIA [id number] [address] [place] [address] [place] OXIDANTS,URINE 58 mg/L Normal <200 [facility] Comment on above: Order Comment: Speci men Type: URINE SPECIMEN Ordering Facility: [facility] Address: [address] Performed By: #### L [id number] #### [facility] CLIA [id number] [address] [place] [address] [place] pH (U) 5.7 [pH] Normal 4.5-8.0 [facility] Comment on above: Order Comment: Speci men Type: URINE SPECIMEN Ordering Facility: [facility] Address: [address] [place], [place] [address] Performed By: #### L [id number] #### [facility] CLIA [id number] [address] [place] [address] [place] SPEC GRAVITY,UR 1.010 Normal 1.003-1.035 [facility] Comment on above: Order Comment: Speci men Type: URINE SPECIMEN Ordering Facility: [facility] Address: [address] [place], [place] [address] Performed By: #### L [id number] #### [facility] CLIA [id number] [address] [place] [address] [place] SPECIMEN VALIDITY QUALITY Specimen quality results within acceptable limits Normal [facility] Comment on above: Order Comment: Speci men Type: URINE SPECIMEN Ordering Facility: [facility] Address: [address] Performed By: #### L [id number] #### [facility] CLIA [id number] [address] [place] [address] [place] CBC W Auto Differential pane l (Bld)on 11-13-2021 Abs Immature Gran 0.03 k/uL <0.10 k/uL [facility] Basophils (Bld) [#/Vol] 0.03 10*3/uL <0.11 k/uL [facility] Basophils/100 WBC (Bld) 0.4 % [facility] Differential cell count method Nom (Bld) Auto [facility] Eosinophils (Bld) [#/Vol] 0.34 10*3/uL <0.46 k/uL [facility] Eosinophils/100 WBC (Bld) 4.8 % [facility] Erythrocyte distribution width (RBC) [Ratio] 13.8 % 11.5 - 15.0 % [facility] Hematocrit (Bld) [Volume fraction] 44.4 % 36.0 - 46.0 % [facility] Hemoglobin (Bld) [Mass/Vol] 14.8 g/dL 11.5 - 15.5 g/dL [facility] Immature Gran % 0.4 % [facility] Lymphocytes (Bld) [#/Vol] 1.62 10*3/uL 1.00 - 4.00 k/uL [facility] Lymphocytes/100 WBC (Bld) 23.0 % [facility] MCH (RBC) [Entitic mass] 31.6 pg 26.0 - 34.0 pg [facility] MCHC (RBC) [Mass/Vol] 33.3 g/dL 30.5 - 36.0 g/dL [facility] MCV (RBC) [Entitic vol] 94.7 fL 80.0 - 100.0 fL [facility] Monocytes (Bld) [#/Vol] 0.51 10*3/uL <0.87 k/uL [facility] Monocytes/100 WBC (Bld) 7.3 % [facility] Neutrophils (Bld) [#/Vol] 4.50 10*3/uL 1.45 - 7.50 k/uL [facility] Neutrophils/100 WBC (Bld) 64.1 % [facility] Nucleated RBC (Bld) [#/Vol] <0.01 k/uL [facility] Nucleated RBC/100 WBC (Bld) [Ratio] 0.0 /100 WBC [facility] Platelet mean volume (Bld) [Entitic vol] 9.6 fL 9.0 - 12.7 fL [facility] Platelets (Bld) [#/Vol] 310 10*3/uL 150 - 400 k/uL [facility] RBC (Bld) [#/Vol] 4.69 10*6/uL 3.90 - 5.2 0 m/uL [facility] WBC (Bld) [#/Vol] 7.03 10*3/uL 3.70 - 11. 00 k/uL [facility] Comprehensive metabolic 2000 panelOrdered By: Saran Johnson on 11-13-2021 Albumin [Mass/Vol] 4.3 g/dL 3.9 - 4.9 g/dL Cl [facility] ALP [Catalytic activity/Vol] 85 U/L 34 - 123 U/L [facility] ALT [Catalytic activity/Vol] 49 U/L High 7 - 38 U/L [facility] Anion gap [Moles/Vol] 9 mmol/L 9 - 18 mmol/L [facility] AST [Catalytic activity/Vol] 40 U/L High 13 - 35 U/L [facility] Bilirubin [Mass/Vol] 0.2 mg/dL 0.2 - 1 .3 mg/dL [facility] Calcium [Mass/Vol] 9.5 mg/dL 8.5 - 10. 2 mg/dL [facility] Chloride [Moles/Vol] 104 mmol/L 97 - 10 5 mmol/L [facility] CO2 [Moles/Vol] 27 mmol/L 22 - 30 mmol/L [facility] Creatinine [Mass/Vol] 0.70 mg/dL 0.58 - 0.96 mg/dL [facility] GFR/1.73 sq M.predicted among non-blacks MDRD (S/P/Bld) [Vol rate/Area] 113 mL/min/{1.73_m2} - PINF [facility] Comment on above: Estimated Glomerular Filtration [...] not accurately reflect actual GFR. Glucose [Mass/Vol] 117 mg/dL High 74 - 99 mg/dL [facility] Comment on above: The [place] Di[employer] Association (ADA) provides guidance for [...] Standards of Medical Care in Diabetes 2016, [place] [employer]. Diabetes Care. 2016.39(Suppl 1). Interpretation and review of laboratory results Abnormal [facility] Potassium [Moles/Vol] 4.4 mmol/L 3.7 - 5.1 mmol/L [facility] Protein [Mass/Vol] 6.7 g/dL 6.3 - 8.0 g/dL [facility] Sodium [Moles/Vol] 140 mmol/L 136 - 144 mmol/L [facility] Urea nitrogen [Mass/Vol] 11 mg/dL 7 - 21 mg/dL [facility] Free T4 [Mass/Vol]on 022 Interpretation and review of laboratory results Normal [facility] GLUCOSE, BLOOD (POC)on 11-13 Glucose [Mass/Vol] 105 mg/dL Abnormal 74 - 99 mg/dL [facility] Comment on above: Location:[facility], [address] [place] [address] , [place], [place], [facility] The Accu-Chek Inform II glucose meter has not been approved for testing on patients receiving intensive medical intervention or therapy and results from this point of care glucose test should not be used for patient management decisions in these cases. Inaccurate results may also occur from other interfering factors, such as N-acetylcysteine (blood concentrations of greater than 5mg/dL), galactose, extremes of hematocrit (<10 or >65), or high doses of ascorbic acid (vitamin C) greater than 3mg/dL. Consider alternate testing mechanisms (e.g. core lab, blood gas instrument) in the above situations. Interpretation and review of laboratory results Abnormal [facility] PET+CT Guidance for localiza tion of tumor of Skull base to mid-thigh-- W 18F-FDG Amira 11-13-2021 IMPRESSION: 1. NECK: * Resolution of FDG avidity within the left cervical node. * No FDG avid neoplastic process. 2. CHEST: * No FDG avid neoplastic process. * Persistent posttreatment changes of the left upper lobe. 3. ABDOMEN/PELVIS: * Persistent size with decreased FDG avidity of mesenteric lymph node, again indeterminate for reactive changes versus neoplastic disease. Lesion is not accessible for percutaneous sampling. 4. EXTREMITIES/SKELETON: * Multifocal areas of cutaneous uptake, presumably related to inflammatory process. Deauville score: 3 (mesenteric node) X (cutaneous uptake) Score 1: No uptake above the background Score 2: Uptake less than or equal to mediastinum Score 3: Uptake greater than mediastinum but less than or equal to liver Score 4: Uptake moderately increased above liver Score 5: Uptake markedly increased above liver or new sited of disease Score X: New areas of uptake unlikely to be related to lymphoma Transcribe Date/Time: Nov 13 2021 9:59A Dictated by: GIOVANNA HARDIN MD This examination was interpreted and the report reviewed and electronically signed by: GIOVANNA HARDIN MD on Nov 13 2021 4:59PM EST Thank you for allowing us to participate in the care of your patient. Should there be any questions regarding this interpretation, please call [phone]. If you are unable to reach us at the number above, please feel free to contact [facility] at [phone]. DIVISION OF RADIOLOGY * * *Final Report* * * DATE OF EXAM: Nov 13 2021 9:57AM NRN [id number] - NM PET/CT SKULL-THIGH SUBQ / PROCEDURE REASON: multiple diagnoses * * * * Physician Interpretation * * * * RESULT: EXAMINATION: WHOLE BODY FDG PET/CT SCAN: HISTORY: Recurrent Hodgkin's lymphoma status post multiple systemic therapy cycles, or pulmonary transplant, palliative radiation to spleen, liver, and lymph nodes. Indeterminate node on PET/CT 08/15/2021. History of psoriasis. INDICATION: Study performed for subsequent treatment strategy. TECHNIQUE: F18-FDG administered IV was followed about 60 minutes later by PET imaging from eyes to proximal thighs. Free breathing low dose CT was performed without contrast for attenuation correction and anatomic localization. Blood glucose before FDG injection: 105 mg/dL FDG radionuclide dose: 12.[address] Dose-Length Product (DLP): 293 mGy*cm. CT Dose Reduction Employed: Yes COMPARISON: 08/15/2021 CORRELATION: None. RESULT: Explosive Operator Supervisor (topogram) images: No additional findings. - Mediastinum blood pool activity: Max SUV: 3.3 - Background liver activity: Max SUV: 4.1 HEAD AND NECK: Stable size with decreased FDG avidity of subcentimeter left IIa node (Max SUV:2.6; image 4:42). No new or enlarging FDG avid lymphadenopathy. Physiologic uptake seen in the visualized brain, extraocular muscles, parapharyngeal soft tissues, base of tongue, vocal cords, and salivary glands. No FDG avid thyroid lesion. CHEST: Physiologic uptake in the heart and mediastinum. Lungs and tracheobronchial tree: Redemonstrated patchy upper lobe/left apical predominant bronchial wall thickening and consolidation (Max SUV 4.0), stable from multiple examinations dating back to 04/01/2020, consistent with post radiation changes. 4 mm lingular non-FDG avid opacity. Note that PET/CT is not sensitive for [...] hydronephrosis, or FDG avid lesions. GI tract: No dilation or focal suspicious FDG avid lesion. Lymph nodes: Stable size with mildly decreased FDG avidity of a 1.0 cm FDG avid right upper mesenteric node (Max SUV:3.9; image 4:184), previously max SUV 6.4. Mesentery/Peritoneum: No ascites or FDG avid mass. Vasculature: Vascular patency cannot be assessed due to lack of IV contrast. No aortic or iliac artery aneurysm. Pelvis: No ascites, fluid collection or FDG avid process. BONES AND EXTREMITIES: No suspicious FDG avid osseous lesion. The imaged portions of the skeleton demonstrates age-related degenerative changes. No destructive osseous lesions. Multifocal areas of cutaneous uptake, for example within the left upper thigh (Max SUV 8.8), presumed cutaneous inflammation. DIVISION OF RADIOLOGY Provider, [facility] - 11/13/2021 * * *Final Report* * * DATE OF EXAM: Nov 13 2021 9:57AM NRN [id number] - NM PET/CT SKULL-THIGH SUBQ / PROCEDURE REASON: multiple diagnoses * * * * Physician Interpretation * * * * RESULT: EXAMINATION: WHOLE BODY FDG PET/CT SCAN: HISTORY: Recurrent Hodgkin's lymphoma status post multiple systemic therapy cycles, or pulmonary transplant, palliative radiation to spleen, liver, and lymph nodes. Indeterminate node on PET/CT 08/15/2021. History of psoriasis. INDICATION: Study performed for subsequent treatment strategy. TECHNIQUE: F18-FDG administered IV was followed about 60 minutes later by PET imaging from eyes to proximal thighs. Free breathing low dose CT was performed without contrast for attenuation correction and anatomic localization. Blood glucose before FDG injection: 105 mg/dL FDG radionuclide dose: 12.[address] Dose-Length Product (DLP): 293 mGy*cm. CT Dose Reduction Employed: Yes COMPARISON: 08/15/2021 CORRELATION: None. RESULT: Explosive Operator Supervisor (topogram) images: No additional findings. - Mediastinum blood pool activity: Max SUV: 3.3 - Background liver activity: Max SUV: 4.1 HEAD AND NECK: Stable size with decreased FDG avidity of subcentimeter left IIa node (Max SUV:2.6; image 4:42). No new or enlarging FDG avid lymphadenopathy. Physiologic uptake seen in the visualized brain, extraocular muscles, parapharyngeal soft tissues, base of tongue, vocal cords, and salivary glands. No FDG avid thyroid lesion. CHEST: Physiologic uptake in the heart and mediastinum. Lungs and tracheobronchial tree: Redemonstrated patchy upper lobe/left apical predominant bronchial wall thickening and consolidation (Max SUV 4.0), stable from multiple examinations dating back to 04/01/2020, consistent with post radiation changes. 4 mm lingular non-FDG avid opacity. Note that PET/CT is not sensitive for [...] hydronephrosis, or FDG avid lesions. GI tract: No dilation or focal suspicious FDG avid lesion. Lymph nodes: Stable size with mildly decreased FDG avidity of a 1.0 cm FDG avid right upper mesenteric node (Max SUV:3.9; image 4:184), previously max SUV 6.4. Mesentery/Peritoneum: No ascites or FDG avid mass. Vasculature: Vascular patency cannot be assessed due to lack of IV contrast. No aortic or iliac artery aneurysm. Pelvis: No ascites, fluid collection or FDG avid process. BONES AND EXTREMITIES: No suspicious FDG avid osseous lesion. The imaged portions of the skeleton demonstrates age-related degenerative changes. No destructive osseous lesions. Multifocal areas of cutaneous uptake, for example within the left upper thigh (Max SUV 8.8), presumed cutaneous inflammation. IMPRESSION IMPRESSION: 1. NECK: * Resolution of FDG avidity within the left cervical node. * No FDG avid neoplastic process. 2. CHEST: * No FDG avid neoplastic process. * Persistent posttreatment changes of the left upper lobe. 3. ABDOMEN/PELVIS: * Persistent size with decreased FDG avidity of mesenteric lymph node, again indeterminate for reactive changes versus neoplastic disease. Lesion is not accessible for percutaneous sampling. 4. EXTREMITIES/SKELETON: * Multifocal areas of cutaneous uptake, presumably related to inflammatory process. Deauville score: 3 (mesenteric node) X (cutaneous uptake) Score 1: No uptake above the background Score 2: Uptake less than or equal to mediastinum Score 3: Uptake greater than mediastinum but less than or equal to liver Score 4: Uptake moderately increased above liver Score 5: Uptake markedly increased above liver or new sited of disease Score X: New areas of uptake unlikely to be related to lymphoma Transcribe Date/Time: Nov 13 2021 9:59A Dictated by: GIOVANNA HARDIN MD This examination was interpreted and the report reviewed and electronically signed by: GIOVANNA HARDIN MD on Nov 13 2021 4:59PM EST Thank you for allowing us to participate in the care of your patient. Should there be any questions regarding this interpretation, please call [phone]. If you are unable to reach us at the number above, please feel free to contact [facility] at [phone]. [facility] Study observation (narrative) [facility] PET+CT Guidance for localiza tion of tumor of Skull base to mid-thigh-- W 18F-FDG IVOrdered By: Ccf Provider on 11-13-2021 [facility] T4 FREE/FREE THYROXon 2021 Free T4 [Mass/Vol] 1.1 ng/dL 0.9 - 1.7 ng/dL [facility] TSH BLDon 11-13-2021 TSH Qn 1.920 m[IU]/L [facility] Comment on above: If the patient [...] E, et al. 2017 Guidelines of the [place] Thy[employer] Association for the Diagnosis and Management of Thyroid Disease during and the . Thyroid, 2017:27:3:315-389. TSH Qnon 11-13-2021 Interpretation and review of laboratory results Normal [facility] CNOVon 10-26-2021 CNOV Office Visit (CNFVM) CELSO WELLER ([id number]) 1980 F TRN Date Time Provider Department 10/26/21 3:00 PM IRENE HAN During your visit today, we recorded the following information about you: Temperature Pulse Blood pressure Weight 97.7 degrees 100/minute 117/88 103 kg Irene Han APRN.CNP 10/26/2021 2:43 PM Signed PALLIATIVE MEDICINE PROGRESS NOTE SERVICE DATE: 10/26/2021 Primary Site of Disease/Medical Illness: Hodgkin Lymphoma Site of Metastasis: Liver, Lymph nodes, Spleen CHIEF COMPLAINT: follow up for pain PERTINENT MEDICAL HISTORY: Celso Weller is a 41 yo female with Hodgkin's Lymphoma diagnosed 01/16/2012 s/p autologous SCT (2013) and several other treatments due to recurrences in that time. She has undergone palliative radiation to spleen, liver, and lymph nodes per Dr. Del Valle. She is currently treated with Keytruda per Dr. Abimael Hernandez. Course has been c/b pulmonary embolus (on [...] upcoming PET scan will show. Modified ESAS ([place] Symptom Assessment Scale) Information Provided By: Patient [...] Medical Onco (more content not included)... Normal [facility] TSH BLDon 08-16-2021 TSH Qn 1.230 m[IU]/L [facility] Comment on above: If the patient [...] Lopes, et al. 2017 Guidelines of the [place] Thyroid Association for the Diagnosis and Management of Thyroid Disease during and the . Thyroid, 2017:27:3:315-389. TSH Qnon 08-16-2021 Interpretation and review of laboratory results Normal [facility] CBC W Auto Differential pane l (Bld)on 08-15-2021 Basophils (Bld) [#/Vol] 0.03 10*3/uL [facility] Basophils/100 WBC (Bld) 0.3 % [facility] Differential cell count method Nom (Bld) Auto [facility] Eosinophils (Bld) [#/Vol] 0.31 10*3/uL [facility] Eosinophils/100 WBC (Bld) 3.2 % [facility] Erythrocyte distribution width (RBC) [Ratio] 14.1 % 11.5 - 15.0 % [facility] Hematocrit (Bld) [Volume fraction] 42.3 % 36.0 - 46.0 % [facility] Hemoglobin (Bld) [Mass/Vol] 13.9 g/dL 11.5 - 15.5 g/dL [facility] Immature granulocytes (Bld) [#/Vol] [facility] Immature granulocytes/100 WBC (Bld) 0.2 % [facility] Lymphocytes (Bld) [#/Vol] 1.80 10*3/uL [facility] Lymphocytes/100 WBC (Bld) 18.4 % [facility] MCH (RBC) [Entitic mass] 30.6 pg 26.0 - 34.0 pg [facility] MCHC (RBC) [Mass/Vol] 32.9 g/dL 30.5 - 36.0 g/dL [facility] MCV (RBC) [Entitic vol] 93.2 fL 80.0 - 100.0 fL [facility] Monocytes (Bld) [#/Vol] 0.56 10*3/[facility] Monocytes/100 WBC (Bld) 5.7 % [facility] Neutrophils (Bld) [#/Vol] 7.06 10*3/uL [facility] Neutrophils/100 WBC (Bld) 72.2 % [facility] Nucleated RBC (Bld) [#/Vol] [facility] Nucleated RBC/100 WBC (Bld) [Ratio] 0.0 % /100 WBC [facility] Platelet mean volume (Bld) [Entitic vol] 9.0 fL 9.0 - 12.7 fL [facility] Platelets (Bld) [#/Vol] 263 10*3/uL [facility] RBC (Bld) [#/Vol] 4.54 10*6/uL 3.90 - 5.2 0 m/uL [facility] WBC (Bld) [#/Vol] 9.78 10*3/uL [facility] This is an appended report. These results have been appended to a previously verified report. [facility] Comprehensive metabolic 2000 panelOrdered By: Saran Johnson on 08-15-2021 Albumin [Mass/Vol] 4.2 g/dL 3.9 - 4.9 g/dL [facility] ALP [Catalytic activity/Vol] 81 U/L 34 - 123 U/L [facility] ALT [Catalytic activity/Vol] 50 U/L High 7 - 38 U/L [facility] Anion gap [Moles/Vol] 7 mmol/L Low 9 - 18 mmol/L [facility] AST [Catalytic activity/Vol] 43 U/L High 13 - 35 U/L [facility] Bilirubin [Mass/Vol] 0.4 mg/dL 0.2 - 1 .3 mg/dL [facility] Calcium [Mass/Vol] 9.2 mg/dL 8.5 - 10. 2 mg/dL [facility] Chloride [Moles/Vol] 107 mmol/L High 97 - 10 5 mmol/L [facility] CO2 [Moles/Vol] 28 mmol/L 22 - 30 mmol/L [facility] Creatinine [Mass/Vol] 0.56 mg/dL Low 0.58 - 0.96 mg/dL [facility] GFR/1.73 sq M.predicted among non-blacks MDRD (S/P/Bld) [Vol rate/Area] 119 mL/min/{1.73_m2} - PINF [facility] Comment on above: Estimated Glomerular Filtration [...] not accurately reflect actual GFR. Glucose [Mass/Vol] 104 mg/dL High 74 - 99 mg/dL [facility] Comment on above: The [place] Diabete s Association (ADA) provides guidance for [...] Standards of Medical Care in Diabetes 2016, [place] Diabetes Association. Diabetes Care. 2016.39(Suppl 1). Interpretation and review of laboratory results Abnormal [facility] Potassium [Moles/Vol] 4.4 mmol/L 3.7 - 5.1 mmol/L [facility] Protein [Mass/Vol] 6.7 g/dL 6.3 - 8.0 g/dL [facility] Sodium [Moles/Vol] 142 mmol/L 136 - 144 mmol/L [facility] Urea nitrogen [Mass/Vol] 8 mg/dL 7 - 21 mg/dL [facility] ESR Westergren method (Bld) [Velocity]on 08-15-2021 ESR (Bld) [Velocity] 5 mm/h [facility] Interpretation and review of laboratory results Normal [facility] PET+CT Guidance for localiza tion of tumor of Skull base to mid-thigh-- W 18F-FDG Amira 08-15-2021 IMPRESSION: 1. NECK: 0.8 x 0.5 cm left level 2A mildly FDG avid node is new compared to 08/09/2020, which may be due to early lymphoma versus reactive; short-term follow-up study would be of value. 2. CHEST: No new FDG avid neoplastic process. 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 Small non-FDG avid left pleural effusion. 3. ABDOMEN/PELVIS: Interval development of 1 cm FDG avid mesenteric lymph node, which may be due to early lymphoma versus reactive; short-term follow-up study would be of value. 4. EXTREMITIES/SKELETON: No suspicious FDG avid osseous process. Changing pattern of FDG avid cutaneous/subcutaneous foci are favored to be secondary to infectious/inflammator y process, although neoplastic etiology needs to be excluded.. This correlation with clinical exam findings. *Deauville score: 4 (nodes), 4X (cutaneous foci) - score 1 : no uptake - score 2 : uptake <= mediastinum - score 3 : uptake > mediastinum, but <= liver - score 4 : uptake moderately higher than liver - score 5 : uptake markedly higher than liver and/or new lesions - score X : new areas of uptake unlikely to be related to lymphoma Transcribe Date/Time: Aug 15 2021 2:32P Dictated by: JORDAN WOODARD MD This examination was interpreted and the report reviewed and electronically signed by: CAIO HINKLE MD on Aug 15 2021 9:49PM EST Thank you for allowing us to participate in the care of your patient. Should there be any questions regarding this interpretation, please call [phone]. If you are unable to reach us at the number above, please feel free to contact [facility] at [phone]. 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 INDICATION: Study performed for subsequent treatment strategy. TECHNIQUE: F18-FDG administered IV was followed about 60 minutes later by PET imaging from skull vertex to proximal thighs. Free breathing low dose CT was performed without contrast for attenuation correction and anatomic localization. Blood glucose before FDG injection: 104 mg/dL FDG radionuclide dose: 11.[address] Dose-Length Product (DLP): 319 mGy*cm. CT Dose Reduction Employed: Automated exposure control (AEC) was used COMPARISON: FDG PET/CT dated 02/14/2021 CORRELATION: CT chest 05/29/[address] abdomen/pelvis 01/01/2020 RESULT: REFERENCE: - Mediastinal blood pool: Max SUV 2.4 - Liver background activity: Max SUV 4 NECK: 0.8 x 0.5 cm left level 2A node on 4:51 with max SUV 3.6, not definitively evident on the prior studies. Physiologic FDG uptake seen in the visualized brain, parapharyngeal soft tissues, base of tongue, vocal cords, and salivary glands. No focal hypermetabolic thyroid lesion. CHEST: Physiologic FDG uptake in the heart and mediastinum. Lungs and tracheobronchial tree: Redemonstration of multifocal patchy opacities and mosaic attenuation throughout both lungs. Most prominent in the left upper lobe with associated architectural distortion and mild bronchiectasis with mild FDG activity (Max SUV 2.4, previously 3.3), likely sequela of radiation therapy/ radiation fibrosis. No hypermetabolic nodules. Pleura: Interval development of small left pleural effusion with adjacent atelectasis. Mediastinum and Lymph nodes: No hypermetabolic axillary, hilar, or mediastinal lymphadenopathy. No hypermetabolic mediastinal mass. Chest wall: Unremarkable. ABDOMEN AND PELVIS: Physiologic FDG uptake seen in the and GI tracts. Liver: Hepatic steatosis. Mild heterogeneous uptake. No focal hypermetabolic hepatic lesions. Biliary: No bile duct dilation. Gallbladder is unremarkable. Spleen: No hypermetabolic splenic mass. No splenomegaly. Pancreas: No hypermetabolic mass or duct dilation. Adrenals: No hypermetabolic adrenal lesion. Kidneys: No stones, hydronephrosis, or hypermetabolic lesions. GI tract: No dilation or wall thickening. Lymph nodes: Interval development of a 1 x 0.9 cm mesenteric lymph node with max SUV 6.4 (4:190). Mesentery/Peritoneum: No ascites or mass. Vasculature: Vascular patency cannot be assessed due to lack of IV contrast. No aortic or iliac artery aneurysm. BONES AND EXTREMITIES: No suspicious FDG avid osseous foci are detected. The imaged portions of the skeleton disclose age-related degenerative changes, most prominently L4-L5 posterior elements, with no detectable destructive lytic or sclerotic lesions. 2 x 1 cm new nodular soft tissue density in the subcutaneous soft tissues posterior to the right shoulder with maximum SUV 6.1 (4:67). Approximately 0.7 cm area of skin thickening in the right paramedian remy pubis on 4:310 with max SUV 8.0. Additional changing foci of subcentimeter FDG avid cutaneous uptake noted. [employer]ESS OPERATOR [employer] (TOPOGRAM) IMAGES: No additional findings. ====== [email or web address] E_DIVISION OF RADIOLOGY Provider, 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 INDICATION: Study performed for subsequent treatment strategy. TECHNIQUE: F18-FDG administered IV was followed about 60 minutes later by PET imaging from skull vertex to proximal thighs. Free breathing low dose CT was performed without contrast for attenuation correction and anatomic localization. Blood glucose before FDG injection: 104 mg/dL FDG radionuclide dose: 11.[address] Dose-Length Product (DLP): 319 mGy*cm. CT Dose Reduction Employed: Automated exposure control (AEC) was used COMPARISON: FDG PET/CT dated 02/14/2021 CORRELATION: CT chest 05/29/[address] abdomen/pelvis 01/01/2020 RESULT: REFERENCE: - Mediastinal blood pool: Max SUV 2.4 - Liver background activity: Max SUV 4 NECK: 0.8 x 0.5 cm left level 2A node on 4:51 with max SUV 3.6, not definitively evident on the prior studies. Physiologic FDG uptake seen in the visualized brain, parapharyngeal soft tissues, base of tongue, vocal cords, and salivary glands. No focal hypermetabolic thyroid lesion. CHEST: Physiologic FDG uptake in the heart and mediastinum. Lungs and tracheobronchial tree: Redemonstration of multifocal patchy opacities and mosaic attenuation throughout both lungs. Most prominent in the left upper lobe with associated architectural distortion and mild bronchiectasis with mild FDG activity (Max SUV 2.4, previously 3.3), likely sequela of radiation therapy/ radiation fibrosis. No hypermetabolic nodules. Pleura: Interval development of small left pleural effusion with adjacent atelectasis. Mediastinum and Lymph nodes: No hypermetabolic axillary, hilar, or mediastinal lymphadenopathy. No hypermetabolic mediastinal mass. Chest wall: Unremarkable. ABDOMEN AND PELVIS: Physiologic FDG uptake seen in the and GI tracts. Liver: Hepatic steatosis. Mild heterogeneous uptake. No focal hypermetabolic hepatic lesions. Biliary: No bile duct dilation. Gallbladder is unremarkable. Spleen: No hypermetabolic splenic mass. No splenomegaly. Pancreas: No hypermetabolic mass or duct dilation. Adrenals: No hypermetabolic adrenal lesion. Kidneys: No stones, hydronephrosis, or hypermetabolic lesions. GI tract: No dilation or wall thickening. Lymph nodes: Interval development of a 1 x 0.9 cm mesenteric lymph node with max SUV 6.4 (4:190). Mesentery/Peritoneum: No ascites or mass. Vasculature: Vascular patency cannot be assessed due to lack of IV contrast. No aortic or iliac artery aneurysm. BONES AND EXTREMITIES: No suspicious FDG avid osseous foci are detected. The imaged portions of the skeleton disclose age-related degenerative changes, most prominently L4-L5 posterior elements, with no detectable destructive lytic or sclerotic lesions. 2 x 1 cm new nodular soft tissue density in the subcutaneous soft tissues posterior to the right shoulder with maximum SUV 6.1 (4:67). Approximately 0.7 cm area of skin thickening in the right paramedian remy pubis on 4:310 with max SUV 8.0. Additional changing foci of subcentimeter FDG avid cutaneous uptake noted. [employer] (TOPOGRAM) IMAGES: No additional findings. ====== IMPRESSION IMPRESSION: 1. NECK: 0.8 x 0.5 cm left level 2A mildly FDG avid node is new compared to 08/09/2020, which may be due to early lymphoma versus reactive; short-term follow-up study would be of value. 2. CHEST: No new FDG avid neoplastic process. 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 Small non-FDG avid left pleural effusion. 3. ABDOMEN/PELVIS: Interval development of 1 cm FDG avid mesenteric lymph node, which may be due to early lymphoma versus reactive; short-term follow-up study would be of value. 4. EXTREMITIES/SKELETON: No suspicious FDG avid osseous process. Changing pattern of FDG avid cutaneous/subcutaneous foci are favored to be secondary to infectious/inflammator y process, although neoplastic etiology needs to be excluded.. This correlation with clinical exam findings. *Deauville score: 4 (nodes), 4X (cutaneous foci) - score 1 : no uptake - score 2 : uptake <= mediastinum - score 3 : uptake > mediastinum, but <= liver - score 4 : uptake moderately higher than liver - score 5 : uptake markedly higher than liver and/or new lesions - score X : new areas of uptake unlikely to be related to lymphoma Transcribe Date/Time: Aug 15 2021 2:32P Dictated by: JORDAN WOODARD MD (more content not included)... [facility] Study observation (narrative) [facility] PET+CT Guidance for localiza tion of tumor of Skull base to mid-thigh-- W 20F-FDG IVOrdered By: Ccf Provider on 08-15-2021 [facility] WOUND CULTUREon 07-28-2021 Bacteria identified Aer cx Nom (Unsp spec) Final report Normal [facility] Comment on above: Performed By: #### C XWND #### [facility] [address] [place] [address] Dr. Kristina Morales Result 1 Mixed skin doni Normal [facility] Comment on above: Performed By: #### C XWND #### [facility] [address] [address] [address] Kristina Morales Initial Visit (Otolaryngolog y)on [...] Chief Complaint HOARSENESS / DIFFICULTY SWALLOWING DR. BEE VAIL History of Present IllnessPatient is a [...] for MODERATE TO SEVERE PAIN-30 DAY SUPPLY oxyCODONE-Acetaminophe n TABS Prochlorperazine Maleate 10 MG Oral Tablettake [...] Touchworks Culture, Urineon 04-17-2021 Culture, Urine ORDER#: [id number] ORDERED BY: SHEILA LIN SOURCE: Urine Voided COLLECTED: 04/17/21 18:42 ANTIBIOTICS AT CECILY.: RECEIVED : 04/17/21 19:23 Culture, Urine FINAL 04/19/21 12:36 Cult,Urine: NO SIGNIFICANT GROWTH Performed at [facility] [employer] [address] [place] [id number] Normal [facility] Comment on above: Performed By: #### C SHIRA #### [facility] [address] [place] [address] Urinalysis, reflex to micros copicon 04-17-2021 Bilirubin Ql (U) Negative Normal Negative [facility] Comment on above: Performed By: #### U A #### [facility] [address] [place] [address] Clarity (U) Clear Normal Clear [facility] Comment on above: Performed By: #### U A #### [facility] [address] [place] [address] Color (U) Yellow Normal Straw/[place]o [facility] Comment on above: Performed By: #### U A #### [facility] [address] [place] [address] Glucose Ql (U) Negative Normal Negative [facility] Comment on above: Performed By: #### U A #### [facility] [address] [place] [address] Hemoglobin Ql (U) Negative Normal Negative [facility] Comment on above: Performed By: #### U A #### [facility] [address] [place] [address] Ketones Ql (U) Negative Normal Negative [facility] Comment on above: Performed By: #### U A #### [facility] [address] [place] [address] Leukocyte esterase Test strip Ql (U) TRACE Abnormal Negative [facility] Comment on above: Performed By: #### U A #### [facility] [address] [place] [address] Nitrite Ql (U) Negative Normal Negative [facility] Comment on above: Performed By: #### U A #### [facility] [address] [place] [address] pH (U) 6.0 [pH] Normal 5.0-9.0 [facility] Comment on above: Performed By: #### U A #### [facility] [address] [place] [address] Protein Ql (U) Negative Normal Negative [facility] Comment on above: Performed By: #### U A #### [facility] [address] [place] [address] Specific gravity (U) [Rel density] 1.006 Normal 1.005-1.03 [facility] Comment on above: Performed By: #### U A #### [facility] [address] [place] [address] Urobilinogen Qn (U) 0.2 {Nuvia'U}/dL Normal < 2.0 [facility] Comment on above: Performed By: #### U A #### [facility] [address] [place] [address] Urine Microscopicon 04-17-19 22 Bacteria LM.HPF (Urine sed) [#/Area] Negative Normal Negative [facility] Comment on above: Performed By: #### U RICARDO #### [facility] [address] [place] [address] Urine Epithelial Cells Auto 0-2 Normal 0-5 [facility] Comment on above: Performed By: #### U RICARDO #### [facility] [address] [place] [address] Urine Hyaline Casts Auto 0-1 Normal 0-5 [facility] Comment on above: Performed By: #### U RICARDO #### [facility] [address] [place] [address] Urine RBC Auto 0-2 Normal 0-5 [facility] Comment on above: Performed By: #### U RICARDO #### [facility] [address] [place] [address] Urine WBC Auto 0-2 Normal 0-5 [facility] Comment on above: Performed By: #### U RICARDO #### [facility] [address] [place] [address] PET+CT Guidance for localiza tion of tumor of Skull base to mid-thigh-- W 20F-FDG Amira 02-15-2021 IMPRESSION: 1. Neck: No suspicious hypermetabolic foci 2. Chest: No evidence of FDG avid neoplastic process 3. Abdomen and pelvis: No evidence of FDG avid neoplastic process 4. Skeleton and extremities: No hypermetabolic osseous lesions. Scattered foci of increased activity associated with cutaneous thickening. Deauville criteria score: X Transcribe Date/Time: Feb 14 2021 4:03P Dictated by: GIOVANNA HARDNI MD This examination was interpreted and the report reviewed and electronically signed by: GIOVANNA HARDIN MD on Feb 15 2021 6:17AM EST Thank you for allowing us to participate in the care of your patient. Should there be any questions regarding this interpretation, please call [phone]. If you are unable to reach us at the number above, please feel free to contact [facility] at [phone]. DIVISION OF RADIOLOGY * * *Final Report* * * DATE OF EXAM: Feb 14 2021 2:04PM NRN [id number] - NM PET/CT SKULL-THIGH SUBQ / PROCEDURE REASON: Hodgkin lymphoma, unspecified Hodgkin lymphoma type, unspecified body region (HC * * * * Physician Interpretation * * * * RESULT: FDG PET/CT SCAN: CLINICAL HISTORY: Lymphoma. INDICATION: Subsequent treatment strategy. TECHNIQUE: 12.3 mCi 18-FDG IV, followed about 1 hour later by PET imaging from base of the skull to proximal femur. Non contrast CT was performed for attenuation correction and anatomic localization purposes. CT Dose-Length Product (DLP): 372 mGy*cm. CT Dose Reduction Employed: Yes BLOOD GLUCOSE: 97 mg/dL Comparison: Prior PET CT dated 08/09/2020. RESULT: Reference mediastinal blood pool SUV 3.2, liver SUV 3.5 NECK: Likely physiological activity in the oral cavity, tonsillar regions, salivary glands. No suspicious hypermetabolic foci. There is no hypermetabolic cervical lymphadenopathy. CHEST: There is no hypermetabolic hilar or mediastinal lymphadenopathy. There is no hypermetabolic axillary lymphadenopathy. Relatively stable patchy opacities in the left apex with mild activity (Max SUV 3.3). No new suspicious hypermetabolic foci in the lungs. ABDOMEN AND PELVIS: The liver is slightly heterogeneous activity but no focal lesions are identified. There are no hypermetabolic foci in the liver, spleen, adrenals. Non-FDG avid lymph nodes. There is no hypermetabolic abdominal or pelvic lymphadenopathy. Physiologic activity is noted in the liver, renal collecting system, bladder and bowel. SKELETON: There are no hypermetabolic osseous lesions. There are scattered foci of increased activity associated with cutaneous thickening for example right anterior groin region (Max SUV 9.1), right medial groin/superior thigh (max SUV 10.5), left posterior medial thigh/gluteal region (Max SUV 11.8), right lateral chest wall (max SUV 4.6). Explosive Operator Supervisor (topogram) images:No additional findings. - DIVISION OF RADIOLOGY Provider, [facility] Katja Sparrow [facility] - 02/15/2021 * * *Final Report* * * DATE OF EXAM: Feb 14 2021 2:04PM NRN [id number] - NM PET/CT SKULL-THIGH SUBQ / PROCEDURE REASON: Hodgkin lymphoma, unspecified Hodgkin lymphoma type, unspecified body region (HC * * * * Physician Interpretation * * * * RESULT: FDG PET/CT SCAN: CLINICAL HISTORY: Lymphoma. INDICATION: Subsequent treatment strategy. TECHNIQUE: 12.3 mCi 18-FDG IV, followed about 1 hour later by PET imaging from base of the skull to proximal femur. Non contrast CT was performed for attenuation correction and anatomic localization purposes. CT Dose-Length Product (DLP): 372 mGy*cm. CT Dose Reduction Employed: Yes BLOOD GLUCOSE: 97 mg/dL Comparison: Prior PET CT dated 08/09/2020. RESULT: Reference mediastinal blood pool SUV 3.2, liver SUV 3.5 NECK: Likely physiological activity in the oral cavity, tonsillar regions, salivary glands. No suspicious hypermetabolic foci. There is no hypermetabolic cervical lymphadenopathy. CHEST: There is no hypermetabolic hilar or mediastinal lymphadenopathy. There is no hypermetabolic axillary lymphadenopathy. Relatively stable patchy opacities in the left apex with mild activity (Max SUV 3.3). No new suspicious hypermetabolic foci in the lungs. ABDOMEN AND PELVIS: The liver is slightly heterogeneous activity but no focal lesions are identified. There are no hypermetabolic foci in the liver, spleen, adrenals. Non-FDG avid lymph nodes. There is no hypermetabolic abdominal or pelvic lymphadenopathy. Physiologic activity is noted in the liver, renal collecting system, bladder and bowel. SKELETON: There are no hypermetabolic osseous lesions. There are scattered foci of increased activity associated with cutaneous thickening for example right anterior groin region (Max SUV 9.1), right medial groin/superior thigh (max SUV 10.5), left posterior medial thigh/gluteal region (Max SUV 11.8), right lateral chest wall (max SUV 4.6). Explosive Operator Supervisor (topogram) images:No additional findings. - IMPRESSION IMPRESSION: 1. Neck: No suspicious hypermetabolic foci 2. Chest: No evidence of FDG avid neoplastic process 3. Abdomen and pelvis: No evidence of FDG avid neoplastic process 4. Skeleton and extremities: No hypermetabolic osseous lesions. Scattered foci of increased activity associated with cutaneous thickening. Deauville criteria score: X Transcribe Date/Time: Feb 14 2021 4:03P Dictated by: GIOVANNA HARDIN MD This examination was interpreted and the report reviewed and electronically signed by: GIOVANNA HARDIN MD on Feb 15 2021 6:17AM EST Thank you for allowing us to participate in the care of your patient. Should there be any questions regarding this interpretation, please call [phone]. If you are unable to reach us at the number above, please feel free to contact [facility] at [phone]. [facility] PET+CT Guidance for localiza tion of tumor of Skull base to mid-thigh-- W 18F-FDG IVOrdered By: Ccf Provider on 02-15-2021 [facility] GLUCOSE, BLOOD (POC)on 02-14 Glucose [Mass/Vol] 97 mg/dL 74 - 99 mg/dL [facility] Comment on above: Location:[facility], [address] [place] [address] Dr. [place], [place], [facility] The Accu-Chek Inform II glucose meter has not been approved for testing on patients receiving intensive medical intervention or therapy and results from this point of care glucose test should not be used for patient management decisions in these cases. Inaccurate results may also occur from other interfering factors, such as N-acetylcysteine (blood concentrations of greater than 5mg/dL), galactose, extremes of hematocrit (<10 or >65), or high doses of ascorbic acid (vitamin C) greater than 3mg/dL. Consider alternate testing mechanisms (e.g. core lab, blood gas instrument) in the above situations. [facility] PET+CT Guidance for localiza tion of tumor of Skull base to mid-thigh-- W 18F-FDG Amira 02-14-2021 Radiology Study observation (narrative) [facility] COVID Quick Testingon 2020 Result Negative [employer] Other KNEE CMPLT, 4 OR MORE VIEWSo n 08-24-2019 KNEE CMPLT, 4 OR MORE VIEWS Patient Name: CELSO WELLER STUDY: KNEE; COMPLT, 4 OR MORE VIEWS; Left; 08/24/2019 3:23 pm INDICATION: Pain. ACCESSION NUMBER(S): [id number] ORDERING CLINICIAN: RENETTA GUERRERO FINDINGS: Left knee x-rays four views AP, lateral, tunnel and sunrise view: No acute fractures, no dislocation. No significant degenerative changes. Electronically signed by: RENETTA GUERRERO MD Normal [facility] Free T4on 03-02-2019 Free T4 [Mass/Vol] 1.2 ng/dL Normal 0.9-1.7 [facility] Comment on above: Performed By: #### F T4, TSH #### [facility] Routine Lab [address] [place], [place] [id number] TSHon 03-02-2019 TSH Qn 5.290 uU/mL High 0.270-4.200 [facility] Comment on above: Performed By: #### F T4, TSH #### [facility] Routine Lab [address] [place], [place] [address] Vital Signs Date Time Vital Sign Value Performing Clinician Facility 06-08-2024 08:06-0400 Body height 182.9 cm Sheila Lin UNPAID INTERN Work Phone: [facility] 06-08-2024 08:06-0400 Diastolic blood pressure 64 mm[Hg] Sheila Lin UNPAID INTERN Work Phone: [facility] 06-08-2024 08:06-0400 Heart rate 102 /min Sheila Lin UNPAID INTERN Work Phone: [facility] 06-08-2024 08:06-0400 SaO2% (BldA) [Mass fraction] 98 % Sheila Lin UNPAID INTERN Work Phone: [facility] 06-08-2024 08:06-0400 Systolic blood pressure 112 mm[Hg] Sheila Lin UNPAID INTERN Work Phone: [facility] 05-04-2024 10:07-0400 Body temperature 97.81 [degF] Ruperto Ledezma MD Work Phone: [facility] 05-04-2024 10:07-0400 Diastolic blood pressure 74 mm[Hg] Ruperto Ledezma MD Work Phone: [facility] 05-04-2024 10:07-0400 Heart rate 97 /min Ruperto Ledezma MD Work Phone: [facility] 05-04-2024 10:07-0400 Respiratory rate 18 /min Ruperto Ledezma MD Work Phone: [facility] 05-04-2024 10:07-0400 SaO2% (BldA) [Mass fraction] 92 % Ruperto Ledezma MD Work Phone: [facility] 05-04-2024 10:07-0400 Systolic blood pressure 115 mm[Hg] Ruperto Ledezma MD Work Phone: [facility] 04-23-2024 14:00-0500 Body temperature 97.59 [degF] Irene Han HEAT READER.SEWAGE DISPOSAL ENGINEER Work Phone: [facility] 04-23-2024 14:00-0500 Diastolic blood pressure 77 mm[Hg] Irene Han HEAT READER.SEWAGE DISPOSAL ENGINEER Work Phone: [facility] 04-23-2024 14:00-0500 Heart rate 105 /min Irene Han HEAT READER.SEWAGE DISPOSAL ENGINEER Work Phone: [facility] 04-23-2024 14:00-0500 Respiratory rate 16 /min Irene Han HEAT READER.SEWAGE DISPOSAL ENGINEER Work Phone: [facility] 04-23-2024 14:00-0500 SaO2% (BldA) [Mass fraction] 93 % rIene Han HEAT READER.SEWAGE DISPOSAL ENGINEER Work Phone: [facility] 04-23-2024 14:00-0500 Systolic blood pressure 114 mm[Hg] Irene Han HEAT READER.SEWAGE DISPOSAL ENGINEER Work Phone: [facility] 03-11-2024 08:05-0500 Body height 182.9 cm Sheila Lin UNPAID INTERN Work Phone: [facility] 03-11-2024 08:05-0500 Diastolic blood pressure 68 mm[Hg] Sheila Lin UNPAID INTERN Work Phone: [facility] 03-11-2024 08:05-0500 Heart rate 90 /min Sheila Lin UNPAID INTERN Work Phone: [facility] 03-11-2024 08:05-0500 SaO2% (BldA) [Mass fraction] 95 % Sheila Araceli UNPAID INTERN Work Phone: [facility] 03-11-2024 08:05-0500 Systolic blood pressure 92 mm[Hg] Sheila Araceli UNPAID INTERN Work Phone: [facility] 01-21-2024 13:27-0500 Diastolic blood pressure 66 mm[Hg] Pradhab Kirupaharan DO Work Phone: [facility] 01-21-2024 13:27-0500 Heart rate 99 /min Pradhab Kirupaharan DO Work Phone: [facility] 01-21-2024 13:27-0500 SaO2% (BldA) [Mass fraction] 96 % Pradhab Kirupaharan DO Work Phone: [facility] 01-21-2024 13:27-0500 Systolic blood pressure 101 mm[Hg] Pradhab Kirupaharan DO Work Phone: [facility] 01-15-2024 10:00-0500 Body height 180 cm Pulm 2 Work Phone: [facility] 01-15-2024 10:00-0500 Body mass index (BMI) [Ratio] 30.56 kg/m2 Pulm 2 Work Phone: [facility] 01-15-2024 10:00-0500 Body weight 99 kg Pulm 2 Work Phone: [facility] 01-06-2024 14:18-0500 Diastolic blood pressure 77 mm[Hg] Jani Carver MD Work Phone: [facility] 01-06-2024 14:18-0500 Systolic blood pressure 103 mm[Hg] Jani Carver MD Work Phone: [facility] 01-06-2024 14:15-0500 Heart rate 99 /min Jani Carver MD Work Phone: [facility] 01-06-2024 14:15-0500 SaO2% (BldA) [Mass fraction] 92 % Jani Carver MD Work Phone: [facility] Comment on above: ra 01-03-2024 14:03-0500 Body height 182.9 cm Korina Vega MD Work Phone: [facility] 01-03-2024 14:03-0500 Body mass index (BMI) [Ratio] 29.84 kg/m2 Korina Vega MD Work Phone: [facility] 01-03-2024 14:03-0500 Body weight 99.79 kg Korina Vega MD Work Phone: [facility] 01-03-2024 14:03-0500 Diastolic blood pressure 78 mm[Hg] Korina Vega MD Work Phone: [facility] 01-03-2024 14:03-0500 Heart rate 94 /min Korina Vega MD Work Phone: [facility] 01-03-2024 14:03-0500 SaO2% (BldA) [Mass fraction] 95 % Korina Vega MD Work Phone: [facility] 01-03-2024 14:03-0500 Systolic blood pressure 114 mm[Hg] Korina Vega MD Work Phone: [facility] 12-26-2023 08:30-0500 Body mass index (BMI) [Ratio] 29.84 kg/m2 Kodi Pantoja MD Work Phone: [facility] 12-26-2023 08:30-0500 Body weight 99.79 kg Kodi Pantoja MD Work Phone: [facility] 12-26-2023 08:30-0500 Heart rate 93 /min Kodi Pantoja MD Work Phone: [facility] 12-26-2023 08:30-0500 SaO2% (BldA) [Mass fraction] 97 % Kodi Pantoja MD Work Phone: [facility] 12-17-2023 08:34-0400 Diastolic blood pressure 86 mm[Hg] 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 APRN.CNP Work Phone: [facility] 12-17-2023 08:34-0400 Heart rate 95 /min Kylie Paul HENLEY.SEWAGE DISPOSAL ENGINEER Work Phone: [facility] 12-17-2023 08:34-0400 SaO2% (BldA) [Mass fraction] 96 % Kylie Paul BROWNN.SEWAGE DISPOSAL ENGINEER Work Phone: [facility] Comment on above: RA 12-17-2023 08:34-0400 Systolic blood pressure 132 mm[Hg] Kylie Paul BROWNN.SEWAGE DISPOSAL ENGINEER Work Phone: [facility] 12-04-2023 09:17-0400 Body mass index (BMI) [Ratio] 29.84 kg/m2 Gabrielle Zavala MD Work Phone: [facility] 12-04-2023 09:17-0400 Body weight 99.79 kg Gabrielle Zavala MD Work Phone: [facility] 11-28-2023 08:34-0400 Body height 182.9 cm Sheila Lin UNPAID INTERN Work Phone: [facility] 11-28-2023 08:34-0400 Diastolic blood pressure 74 mm[Hg] Sheila Lin UNPAID INTERN Work Phone: [facility] 11-28-2023 08:34-0400 Heart rate 99 /min Sheila Lin UNPAID INTERN Work Phone: [facility] 11-28-2023 08:34-0400 SaO2% (BldA) [Mass fraction] 96 % Sheila Lin UNPAID INTERN Work Phone: [facility] 11-28-2023 08:34-0400 Systolic blood pressure 110 mm[Hg] Sheila Lin UNPAID INTERN Work Phone: [facility] 11-21-2023 08:32-0400 Body mass index (BMI) [Ratio] 32.06 kg/m2 Kylie Millardna HEAT READER.SEWAGE DISPOSAL ENGINEER Work Phone: [facility] 11-21-2023 08:32-0400 Body weight 103.87 kg Yklie Paul HEAT READER.SEWAGE DISPOSAL ENGINEER Work Phone: [facility] Comment on above: declined 11-21-2023 08:32-0400 Diastolic blood pressure 66 mm[Hg] 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 APRN.SEWAGE DISPOSAL ENGINEER Work Phone: [facility] 11-21-2023 08:32-0400 Heart rate 92 /min 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 APRN.SEWAGE DISPOSAL ENGINEER Work Phone: [facility] 11-21-2023 08:32-0400 SaO2% (BldA) [Mass fraction] 94 % 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 APRN.SEWAGE DISPOSAL ENGINEER Work Phone: [facility] Comment on above: RA 11-21-2023 08:32-0400 Systolic blood pressure 119 mm[Hg] 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 APRN.SEWAGE DISPOSAL ENGINEER Work Phone: [facility] 11-20-2023 09:06-0400 Body height 182.9 cm Gabrielle Zavala MD Work Phone: [facility] 11-20-2023 09:06-0400 Body mass index (BMI) [Ratio] 29.84 kg/m2 Gabrielle Zavala MD Work Phone: [facility] 11-20-2023 09:06-0400 Body weight 99.79 kg Gabrielle Zavala MD Work Phone: [facility] 11-11-2023 10:27-0400 Body height 180 cm Ellyn Lopez APRN.SEWAGE DISPOSAL ENGINEER Work Phone: [facility] 11-11-2023 10:27-0400 Body temperature 97.11 [degF] Ellyn Lopez APRN.SEWAGE DISPOSAL ENGINEER Work Phone: [facility] 11-11-2023 10:27-0400 Diastolic blood pressure 71 mm[Hg] Ellyn Lopez APRN.SEWAGE DISPOSAL ENGINEER Work Phone: [facility] 11-11-2023 10:27-0400 Heart rate 101 /min Ellyn Lopez APRN.SEWAGE DISPOSAL ENGINEER Work Phone: [facility] 11-11-2023 10:27-0400 Respiratory rate 16 /min Ellyn Lopez APRN.SEWAGE DISPOSAL ENGINEER Work Phone: [facility] 11-11-2023 10:27-0400 SaO2% (BldA) [Mass fraction] 96 % Ellyn Lopez APRN.SEWAGE DISPOSAL ENGINEER Work Phone: [facility] 11-11-2023 10:27-0400 Systolic blood pressure 102 mm[Hg] Ellyn Lopez HEAT READER.SEWAGE DISPOSAL ENGINEER Work Phone: [facility] 11-06-2023 09:57-0400 Diastolic blood pressure 80 mm[Hg] Sheila Lin UNPAID INTERN Work Phone: [facility] 11-06-2023 09:57-0400 Heart rate 92 /min Sheila Lin UNPAID INTERN Work Phone: [facility] 11-06-2023 09:57-0400 SaO2% (BldA) [Mass fraction] 98 % Sheila Lin UNPAID INTERN Work Phone: [facility] 11-06-2023 09:57-0400 Systolic blood pressure 114 mm[Hg] Sheila Lin UNPAID INTERN Work Phone: [facility] 10-17-2023 09:59-0400 Body temperature 97 [degF] Irene Han APRN.SEWAGE DISPOSAL ENGINEER Work Phone: [facility] 10-17-2023 09:59-0400 Diastolic blood pressure 75 mm[Hg] Irene Han APRN.SEWAGE DISPOSAL ENGINEER Work Phone: [facility] 10-17-2023 09:59-0400 Heart rate 91 /min Irene Han APRN.SEWAGE DISPOSAL ENGINEER Work Phone: [facility] 10-17-2023 09:59-0400 Respiratory rate 16 /min Ierne Han APRN.SEWAGE DISPOSAL ENGINEER Work Phone: [facility] 10-17-2023 09:59-0400 SaO2% (BldA) [Mass fraction] 96 % Irene Han APRN.SEWAGE DISPOSAL ENGINEER Work Phone: [facility] 10-17-2023 09:59-0400 Systolic blood pressure 108 mm[Hg] Irene Han APRN.SEWAGE DISPOSAL ENGINEER Work Phone: [facility] 10-09-2023 10:58-0400 Diastolic blood pressure 83 mm[Hg] Simin Brandt MD Work Phone: [facility] 10-09-2023 10:58-0400 Heart rate 74 /min Simin Brandt MD Work Phone: [facility] 10-09-2023 10:58-0400 SaO2% (BldA) [Mass fraction] 99 % Simin Brandt MD Work Phone: [facility] 10-09-2023 10:58-0400 Systolic blood pressure 123 mm[Hg] Simin Brandt MD Work Phone: [facility] 09-18-2023 09:29-0400 Body temperature 96.91 [degF] Anil Franco PA-C Work Phone: [facility] 08-06-2023 06:59-0400 Body height 180 cm Carole Peley HEAT READER.SEWAGE DISPOSAL ENGINEER Work Phone: [facility] 08-06-2023 06:59-0400 Diastolic blood pressure 76 mm[Hg] Carole Pelfrey HEAT READER.SEWAGE DISPOSAL ENGINEER Work Phone: [facility] 08-06-2023 06:59-0400 Heart rate 91 /min Carole Pelfrey HEAT READER.SEWAGE DISPOSAL ENGINEER Work Phone: [facility] 08-06-2023 06:59-0400 SaO2% (BldA) [Mass fraction] 97 % Carole Pelfrey HEAT READER.SEWAGE DISPOSAL ENGINEER Work Phone: [facility] Comment on above: RA 08-06-2023 06:59-0400 Systolic blood pressure 120 mm[Hg] Carole Pelfrey HEAT READER.SEWAGE DISPOSAL ENGINEER Work Phone: [facility] 08-05-2023 10:04-0400 Body temperature 97.59 [degF] Ruperto Ledezma MD Work Phone: [facility] 08-05-2023 10:04-0400 Diastolic blood pressure 86 mm[Hg] Ruperto Ledezma MD Work Phone: [facility] 08-05-2023 10:04-0400 Heart rate 88 /min Ruperto Ledezma MD Work Phone: [facility] 08-05-2023 10:04-0400 Respiratory rate 16 /min Ruperto Ledezma MD Work Phone: [facility] 08-05-2023 10:04-0400 SaO2% (BldA) [Mass fraction] 95 % Ruperto Ledezma MD Work Phone: [facility] 08-05-2023 10:04-0400 Systolic blood pressure 123 mm[Hg] Ruperto Ledezma MD Work Phone: [facility] 2023 10:07-0400 Body temperature 97.9 [degF] Irene Han HEAT READER.SEWAGE DISPOSAL ENGINEER Work Phone: [facility] 2023 10:07-0400 Diastolic blood pressure 64 mm[Hg] Irene Han HEAT READER.SEWAGE DISPOSAL ENGINEER Work Phone: [facility] 2023 10:07-0400 Heart rate 93 /min Irene Han HEAT READER.SEWAGE DISPOSAL ENGINEER Work Phone: [facility] 2023 10:07-0400 SaO2% (BldA) [Mass fraction] 97 % Irene Han HEAT READER.SEWAGE DISPOSAL ENGINEER Work Phone: [facility] 2023 10:07-0400 Systolic blood pressure 117 mm[Hg] Irene Han HEAT READER.SEWAGE DISPOSAL ENGINEER Work Phone: [facility] 06-28-2023 11:07-0400 Diastolic blood pressure 84 mm[Hg] Jani Carver MD Work Phone: [facility] [facility] 06[facility]28[facility]2023 11:07-0400 Heart rate 93 /min Jani Carver MD Work Phone: [facility] 06-28-2023 11:07-0400 SaO2% (BldA) [Mass fraction] 100 % Jani Carver MD Work Phone: [facility] Comment on above: ra 06-28-2023 11:07-0400 Systolic blood pressure 118 mm[Hg] Jani Carver MD Work Phone: [facility] 06-13-2023 11:03-0400 Body height 180 cm Carole Floresey HEAT READER.SEWAGE DISPOSAL ENGINEER Work Phone: [facility] 06-13-2023 11:03-0400 Body temperature 98.29 [degF] Carole Villalpandofrey HEAT READER.SEWAGE DISPOSAL ENGINEER Work Phone: [facility] 06-13-2023 11:03-0400 Diastolic blood pressure 69 mm[Hg] Carole Pelfrey HEAT READER.SEWAGE DISPOSAL ENGINEER Work Phone: [facility] 06-13-2023 11:03-0400 Heart rate 99 /min Carole Villalpandofrey HEAT READER.SEWAGE DISPOSAL ENGINEER Work Phone: [facility] 06-13-2023 11:03-0400 SaO2% (BldA) [Mass fraction] 98 % Carole Ruano HEAT READER.SEWAGE DISPOSAL ENGINEER Work Phone: [facility] Comment on above: 06-13-2023 11:03-0400 Systolic blood pressure 114 mm[Hg] Carole Villalpandofrey HEAT READER.SEWAGE DISPOSAL ENGINEER Work Phone: [facility] 06-10-2023 10:08-0400 Body temperature 97 [degF] Ruperto Ledezma MD Work Phone: [facility] 06-10-2023 10:08-0400 Diastolic blood pressure 72 mm[Hg] Ruperto Ledezma MD Work Phone: [facility] 06-10-2023 10:08-0400 Heart rate 94 /min Ruperto Ledezma MD Work Phone: [facility] 06-10-2023 10:08-0400 Respiratory rate 18 /min Ruperto Ledezma MD Work Phone: [facility] 06-10-2023 10:08-0400 SaO2% (BldA) [Mass fraction] 98 % Ruperto Ledezma MD Work Phone: [facility] 06-10-2023 10:08-0400 Systolic blood pressure 111 mm[Hg] Ruperto Ledezma MD Work Phone: [facility] 05-31-2023 14:38-0400 Body temperature 96.91 [degF] Zoila Aguirre APRN.SEWAGE DISPOSAL ENGINEER Work Phone: [facility] 05-31-2023 14:38-0400 Diastolic blood pressure 83 mm[Hg] Zoila Aguirre HEAT READER.SEWAGE DISPOSAL ENGINEER Work Phone: [facility] 05-31-2023 14:38-0400 Heart rate 109 /min Zoila Aguirre APRN.SEWAGE DISPOSAL ENGINEER Work Phone: [facility] 05-31-2023 14:38-0400 Respiratory rate 16 /min Zoila Aguirre APRN.SEWAGE DISPOSAL ENGINEER Work Phone: [facility] 05-31-2023 14:38-0400 SaO2% (BldA) [Mass fraction] 97 % Zoila Aguirre APRN.SEWAGE DISPOSAL ENGINEER Work Phone: [facility] 05-31-2023 14:38-0400 Systolic blood pressure 120 mm[Hg] Zoila Aguirre HEAT READER.SEWAGE DISPOSAL ENGINEER Work Phone: [facility] 05-22-2023 07:50-0400 Body temperature 97.11 [degF] Anil Franco PA-C Work Phone: [facility] 04-19-2023 08:35-0500 Body height 182.9 cm Caroleedilson Ruano APRN.SEWAGE DISPOSAL ENGINEER Work Phone: [facility] 04-19-2023 08:35-0500 Body weight 103.9 kg Carole Ruano APRN.SEWAGE DISPOSAL ENGINEER Work Phone: [facility] 04-19-2023 08:35-0500 Diastolic blood pressure 76 mm[Hg] Carole Ruano APRN.SEWAGE DISPOSAL ENGINEER Work Phone: [facility] 04-19-2023 08:35-0500 Heart rate 94 /min Caroleedilson Ruano APRN.SEWAGE DISPOSAL ENGINEER Work Phone: [facility] 04-19-2023 08:35-0500 SaO2% (BldA) [Mass fraction] 98 % Carole Ruano HEAT READER.SEWAGE DISPOSAL ENGINEER Work Phone: [facility] 04-19-2023 08:35-0500 Systolic blood pressure 112 mm[Hg] Carole Ruano HEAT READER.SEWAGE DISPOSAL ENGINEER Work Phone: [facility] 04-16-2023 10:41-0500 Body height 180 cm Rupreto Ledezma MD Work Phone: [facility] 04-16-2023 10:41-0500 Body temperature 97.39 [degF] Ruperto Ledezma MD Work Phone: [facility] 04-16-2023 10:41-0500 Body weight 102 kg Ruperto Ledezma MD Work Phone: [facility] 04-16-2023 10:41-0500 Diastolic blood pressure 82 mm[Hg] Ruperto Ledezma MD Work Phone: [facility] 04-16-2023 10:41-0500 Heart rate 89 /min Ruperto Ledezma MD Work Phone: [facility] 04-16-2023 10:41-0500 Respiratory rate 18 /min Ruperto Ledezma MD Work Phone: [facility] 04-16-2023 10:41-0500 SaO2% (BldA) [Mass fraction] 95 % Ruperto Ledezma MD Work Phone: [facility] 04-16-2023 10:41-0500 Systolic blood pressure 117 mm[Hg] Ruperto Ledezma MD Work Phone: [facility] 03-28-2023 14:19-0500 Body weight 108.86 kg 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 HEAT READER.SEWAGE DISPOSAL ENGINEER Work Phone: [facility] 03-28-2023 14:19-0500 Diastolic blood pressure 81 mm[Hg] 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 HEAT READER.SEWAGE DISPOSAL ENGINEER Work Phone: [facility] 03-28-2023 14:19-0500 Heart rate 99 /min 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 HEAT READER.SEWAGE DISPOSAL ENGINEER Work Phone: [facility] 03-28-2023 14:19-0500 SaO2% (BldA) [Mass fraction] 97 % 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 APRN.CNP Work Phone: [facility] 03-28-2023 14:19-0500 Systolic blood pressure 114 mm[Hg] 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 APRN.CNP Work Phone: [facility] 01-29-2023 16:45-0500 Body height 182.88 cm Keke Kaila Other [employer] Other 01-29-2023 16:45-0500 Body mass index (BMI) [Ratio] 30.92 kg/m2 Keke Kaila Other [employer] Other 01-29-2023 16:45-0500 Body temperature 98 [degF] Keke Kaila Other [employer] Other 01-29-2023 16:45-0500 Body weight 103.42 kg Keke Kaila Other [employer] Other 01-29-2023 16:45-0500 Diastolic blood pressure 86 mm[Hg] Keke Kaila Other [employer] Other 01-29-2023 16:45-0500 Respiratory rate 18 /min Keke Kaila Other [employer] Other 01-29-2023 16:45-0500 SaO2% (BldA) [Mass fraction] 98 % Keke Kaila Other [employer] Other 01-29-2023 16:45-0500 Systolic blood pressure 133 mm[Hg] Keke Kaila Other [employer] Other 01-01-2023 10:53-0500 Body height 180 cm Ruperto Ledezma MD Work Phone: [facility] 01-01-2023 10:53-0500 Body temperature 97 [degF] Ruperto Ledezma MD Work Phone: [facility] 01-01-2023 10:53-0500 Body weight 102.6 kg Ruperto Ledezma MD Work Phone: [facility] 01-01-2023 10:53-0500 Diastolic blood pressure 89 mm[Hg] Ruperto Ledezma MD Work Phone: [facility] 01-01-2023 10:53-0500 Heart rate 104 /min Ruperto Ledezma MD Work Phone: [facility] 01-01-2023 10:53-0500 Respiratory rate 16 /min Ruperto Ledezma MD Work Phone: [facility] 01-01-2023 10:53-0500 SaO2% (BldA) [Mass fraction] 97 % Ruperto Ledezma MD Work Phone: [facility] 01-01-2023 10:53-0500 Systolic blood pressure 133 mm[Hg] Ruperto Ledezma MD Work Phone: [facility] 10-18-2022 11:01-0400 Body temperature 98.2 [degF] Irene Han APRN.SEWAGE DISPOSAL ENGINEER Work Phone: [facility] 10-18-2022 11:01-0400 Body weight 102.01 kg Irene Han APRN.SEWAGE DISPOSAL ENGINEER Work Phone: [facility] 10-18-2022 11:01-0400 Diastolic blood pressure 81 mm[Hg] Irene Han APRN.SEWAGE DISPOSAL ENGINEER Work Phone: [facility] 10-18-2022 11:01-0400 Heart rate 96 /min Irene Han APRN.SEWAGE DISPOSAL ENGINEER Work Phone: [facility] 10-18-2022 11:01-0400 SaO2% (BldA) [Mass fraction] 96 % Irene Han APRN.SEWAGE DISPOSAL ENGINEER Work Phone: [facility] 10-18-2022 11:01-0400 Systolic blood pressure 116 mm[Hg] Irene Han HEAT READER.SEWAGE DISPOSAL ENGINEER Work Phone: [facility] 09-13-2022 10:06-0400 Body weight 103.87 kg Jani Carver MD Work Phone: [facility] 09-13-2022 10:06-0400 Diastolic blood pressure 87 mm[Hg] Jani Carver MD Work Phone: [facility] 09-13-2022 10:06-0400 Heart rate 95 /min Jani Carver MD Work Phone: [facility] 09-13-2022 10:06-0400 Respiratory rate 16 /min Jani Carver MD Work Phone: [facility] 09-13-2022 10:06-0400 SaO2% (BldA) [Mass fraction] 96 % Jani Carver MD Work Phone: [facility] 09-13-2022 10:06-0400 Systolic blood pressure 121 mm[Hg] Jani Carver MD Work Phone: [facility] 08-22-2022 14:33-0400 Body temperature 98.6 [degF] Cyn Hernandez MD Work Phone: [facility] 08-22-2022 14:33-0400 Diastolic blood pressure 74 mm[Hg] Cyn Hernandez MD Work Phone: [facility] 08-22-2022 14:33-0400 Heart rate 100 /min Cyn Hernandez MD Work Phone: [facility] 08-22-2022 14:33-0400 SaO2% (BldA) [Mass fraction] 94 % Cyn Hernandez MD Work Phone: [facility] 08-22-2022 14:33-0400 Systolic blood pressure 105 mm[Hg] Cyn Hernandez MD Work Phone: [facility] 08-01-2022 09:56-0400 Body height 180.3 cm Don Sukhwinder HEAT READER.SEWAGE DISPOSAL ENGINEER Work Phone: [facility] 08-01-2022 09:56-0400 Body temperature 97 [degF] Don Sukhwinder HEAT READER.SEWAGE DISPOSAL ENGINEER Work Phone: [facility] 08-01-2022 09:56-0400 Diastolic blood pressure 80 mm[Hg] Don Sukhwinder HEAT READER.SEWAGE DISPOSAL ENGINEER Work Phone: [facility] 08-01-2022 09:56-0400 Heart rate 100 /min Don Sukhwinder HEAT READER.SEWAGE DISPOSAL ENGINEER Work Phone: [facility] 08-01-2022 09:56-0400 SaO2% (BldA) [Mass fraction] 95 % Don Sukhwinder HEAT READER.SEWAGE DISPOSAL ENGINEER Work Phone: [facility] 08-01-2022 09:56-0400 Systolic blood pressure 115 mm[Hg] Don Sukhwinder HEAT READER.SEWAGE DISPOSAL ENGINEER Work Phone: [facility] 07-19-2022 10:32-0400 Body weight 105.33 kg Irene Han HEAT READER.SEWAGE DISPOSAL ENGINEER Work Phone: [facility] 07-19-2022 10:32-0400 Diastolic blood pressure 84 mm[Hg] Irene Han HEAT READER.SEWAGE DISPOSAL ENGINEER Work Phone: [facility] 07-19-2022 10:32-0400 Heart rate 104 /min Irene Han APRN.SEWAGE DISPOSAL ENGINEER Work Phone: [facility] 07-19-2022 10:32-0400 SaO2% (BldA) [Mass fraction] 94 % Irene Han HEAT READER.SEWAGE DISPOSAL ENGINEER Work Phone: [facility] 07-19-2022 10:32-0400 Systolic blood pressure 124 mm[Hg] Irene Han APRN.SEWAGE DISPOSAL ENGINEER Work Phone: [facility] 07-18-2022 11:06-0400 Body height 182.9 cm Cyn Hernandez MD Work Phone: [facility] 07-18-2022 11:06-0400 Body temperature 98.2 [degF] Cyn Hernandez MD Work Phone: [facility] 07-18-2022 11:06-0400 Body weight 106.41 kg Cyn Hernandez MD Work Phone: [facility] 07-18-2022 11:06-0400 Diastolic blood pressure 86 mm[Hg] Cyn Hernandez MD Work Phone: [facility] 07-18-2022 11:06-0400 Heart rate 103 /min Cyn Hernandez MD Work Phone: [facility] 07-18-2022 11:06-0400 Respiratory rate 18 /min Cyn Hernandez MD Work Phone: [facility] 07-18-2022 11:06-0400 SaO2% (BldA) [Mass fraction] 96 % Cyn Hernandez MD Work Phone: [facility] 07-18-2022 11:06-0400 Systolic blood pressure 124 mm[Hg] Cyn Hernandez MD Work Phone: [facility] 05-01-2022 09:51-0400 Body temperature 98.01 [degF] Treatment Rej Work Phone: [facility] 05-01-2022 09:51-0400 Diastolic blood pressure 87 mm[Hg] Treatment Rej Work Phone: [facility] 05-01-2022 09:51-0400 Heart rate 106 /min Treatment Rej Work Phone: [facility] 05-01-2022 09:51-0400 Respiratory rate 18 /min Treatment Rej Work Phone: [facility] 05-01-2022 09:51-0400 Systolic blood pressure 123 mm[Hg] Treatment Rej Work Phone: [facility] 04-23-2022 09:49-0500 Body weight 106.91 kg Irene Han APRN.CNP Work Phone: [facility] 04-23-2022 09:49-0500 Diastolic blood pressure 77 mm[Hg] Irene Han APRN.SEWAGE DISPOSAL ENGINEER Work Phone: [facility] 04-23-2022 09:49-0500 Heart rate 99 /min Irene Han APRN.SEWAGE DISPOSAL ENGINEER Work Phone: [facility] 04-23-2022 09:49-0500 Systolic blood pressure 113 mm[Hg] Irene Han APRN.SEWAGE DISPOSAL ENGINEER Work Phone: [facility] 03-07-2022 11:37-0500 Body temperature 98.4 [degF] Cyn Hernandez MD Work Phone: [facility] 03-07-2022 11:37-0500 Diastolic blood pressure 70 mm[Hg] Cyn Hernandez MD Work Phone: [facility] 03-07-2022 11:37-0500 Heart rate 106 /min Cyn Hernandez MD Work Phone: [facility] 03-07-2022 11:37-0500 SaO2% (BldA) [Mass fraction] 98 % Cyn Hernandez MD Work Phone: [facility] 03-07-2022 11:37-0500 Systolic blood pressure 113 mm[Hg] Cyn Hernandez MD Work Phone: [facility] 02-14-2022 12:23-0500 Body temperature 96.8 [degF] Treatment Rej Work Phone: [facility] 02-14-2022 12:23-0500 Diastolic blood pressure 89 mm[Hg] Treatment Rej Work Phone: [facility] 02-14-2022 12:23-0500 Heart rate 102 /min Treatment Rej Work Phone: [facility] 02-14-2022 12:23-0500 Systolic blood pressure 134 mm[Hg] Treatment Rej Work Phone: [facility] 01-25-2022 14:37-0500 Body temperature 98.6 [degF] Irene Han APRN.SEWAGE DISPOSAL ENGINEER Work Phone: [facility] 01-25-2022 14:37-0500 Body weight 106.82 kg Irene Han APRN.SEWAGE DISPOSAL ENGINEER Work Phone: [facility] 01-25-2022 14:37-0500 Diastolic blood pressure 67 mm[Hg] Irene Han APRN.SEWAGE DISPOSAL ENGINEER Work Phone: [facility] 01-25-2022 14:37-0500 Heart rate 109 /min Irene Han APRN.SEWAGE DISPOSAL ENGINEER Work Phone: [facility] 01-25-2022 14:37-0500 SaO2% (BldA) [Mass fraction] 96 % Irene Han APRN.SEWAGE DISPOSAL ENGINEER Work Phone: [facility] 01-25-2022 14:37-0500 Systolic blood pressure 115 mm[Hg] Irene Han APRN.SEWAGE DISPOSAL ENGINEER Work Phone: [facility] 01-18-2022 10:30-0500 Body temperature 96.91 [degF] Treatment Rej Work Phone: [facility] 01-18-2022 10:30-0500 Diastolic blood pressure 86 mm[Hg] Treatment Rej Work Phone: [facility] 01-18-2022 10:30-0500 Heart rate 108 /min Treatment Rej Work Phone: [facility] 01-18-2022 10:30-0500 Systolic blood pressure 125 mm[Hg] Treatment Rej Work Phone: [facility] 12-27-2021 09:25-0500 Body temperature 97.5 [degF] Sylvia Mancilla APRN.SEWAGE DISPOSAL ENGINEER Work Phone: [facility] 12-27-2021 09:25-0500 Body weight 105.01 kg Sylvia Mancilla APRN.SEWAGE DISPOSAL ENGINEER Work Phone: [facility] 12-27-2021 09:25-0500 Diastolic blood pressure 74 mm[Hg] Sylvia Mancilla APRN.SEWAGE DISPOSAL ENGINEER Work Phone: [facility] 12-27-2021 09:25-0500 Heart rate 103 /min Sylvia Charo HEAT READER.SEWAGE DISPOSAL ENGINEER Work Phone: [facility] 12-27-2021 09:25-0500 SaO2% (BldA) [Mass fraction] 98 % Sylvia Charo HEAT READER.SEWAGE DISPOSAL ENGINEER Work Phone: [facility] 12-27-2021 09:25-0500 Systolic blood pressure 116 mm[Hg] Sylvia Charo HEAT READER.SEWAGE DISPOSAL ENGINEER Work Phone: [facility] 12-06-2021 13:34-0400 Body temperature 97.11 [degF] Treatment Rej Work Phone: [facility] 12-06-2021 13:34-0400 Diastolic blood pressure 88 mm[Hg] Treatment Rej Work Phone: [facility] 12-06-2021 13:34-0400 Heart rate 92 /min Treatment Rej Work Phone: [facility] 12-06-2021 13:34-0400 Respiratory rate 18 /min Treatment Rej Work Phone: [facility] 12-06-2021 13:34-0400 Systolic blood pressure 199 mm[Hg] Treatment Rej Work Phone: [facility] 11-15-2021 13:08-0400 Body height 181 cm Cyn Hernandez MD Work Phone: [facility] 11-15-2021 13:08-0400 Body temperature 98.71 [degF] Cyn Hernandez MD Work Phone: [facility] 11-15-2021 13:08-0400 Body weight 102.78 kg Cyn Hernandez MD Work Phone: [facility] 11-15-2021 13:08-0400 Diastolic blood pressure 77 mm[Hg] Cyn Hernandez MD Work Phone: [facility] 11-15-2021 13:08-0400 Heart rate 100 /min Cyn Hernandez MD Work Phone: [facility] 11-15-2021 13:08-0400 SaO2% (BldA) [Mass fraction] 98 % Cyn Hernandez MD Work Phone: [facility] 11-15-2021 13:08-0400 Systolic blood pressure 118 mm[Hg] Cyn Hernandez MD Work Phone: [facility] 10-26-2021 13:20-0400 Body temperature 97.7 [degF] Irene Han APRN.SEWAGE DISPOSAL ENGINEER Work Phone: [facility] 10-26-2021 13:20-0400 Body weight 102.97 kg Irene Han APRN.SEWAGE DISPOSAL ENGINEER Work Phone: [facility] 10-26-2021 13:20-0400 Diastolic blood pressure 88 mm[Hg] Irene Han APRN.SEWAGE DISPOSAL ENGINEER Work Phone: [facility] 10-26-2021 13:20-0400 Heart rate 100 /min Irene Han APRN.SEWAGE DISPOSAL ENGINEER Work Phone: [facility] 10-26-2021 13:20-0400 SaO2% (BldA) [Mass fraction] 97 % Irene Han APRN.SEWAGE DISPOSAL ENGINEER Work Phone: [facility] 10-26-2021 13:20-0400 Systolic blood pressure 117 mm[Hg] Irene Han APRN.SEWAGE DISPOSAL ENGINEER Work Phone: [facility] 10-26-2021 11:28-0400 Body temperature 97.59 [degF] Treatment Rej Work Phone: [facility] 10-26-2021 11:28-0400 Diastolic blood pressure 82 mm[Hg] Treatment Rej Work Phone: [facility] 10-26-2021 11:28-0400 Heart rate 108 /min Treatment Rej Work Phone: [facility] 10-26-2021 11:28-0400 Systolic blood pressure 133 mm[Hg] Treatment Rej Work Phone: [facility] 10-25-2021 10:01-0400 Body temperature 98.2 [degF] Sylvia Mancilla HEAT READER.SEWAGE DISPOSAL ENGINEER Work Phone: [facility] 10-25-2021 10:01-0400 Body weight 102.78 kg Sylvia Mancilla HEAT READER.SEWAGE DISPOSAL ENGINEER Work Phone: [facility] 10-25-2021 10:01-0400 Diastolic blood pressure 87 mm[Hg] Sylvia Mancilla HEAT READER.SEWAGE DISPOSAL ENGINEER Work Phone: [facility] 10-25-2021 10:01-0400 Heart rate 102 /min Sylvia Charo HEAT READER.SEWAGE DISPOSAL ENGINEER Work Phone: [facility] 10-25-2021 10:01-0400 SaO2% (BldA) [Mass fraction] 97 % Sylviamariusz Mancilla HEAT READER.SEWAGE DISPOSAL ENGINEER Work Phone: [facility] 10-25-2021 10:01-0400 Systolic blood pressure 112 mm[Hg] Sylvia Charo HEAT READER.SEWAGE DISPOSAL ENGINEER Work Phone: [facility] 09-06-2021 12:40-0400 Body temperature 97.7 [degF] Treatment Rej Work Phone: [facility] 09-06-2021 12:40-0400 Body weight 101.88 kg Treatment Rej Work Phone: [facility] 09-06-2021 12:40-0400 Diastolic blood pressure 73 mm[Hg] Treatment Rej Work Phone: [facility] 09-06-2021 12:40-0400 Heart rate 109 /min Treatment Rej Work Phone: [facility] 09-06-2021 12:40-0400 Systolic blood pressure 111 mm[Hg] Treatment Rej Work Phone: [facility] 07-26-2021 11:03-0400 Body temperature 97.3 [degF] Treatment Rej Work Phone: [facility] 07-26-2021 11:03-0400 Diastolic blood pressure 83 mm[Hg] Treatment Rej Work Phone: [facility] 07-26-2021 11:03-0400 Heart rate 99 /min Treatment Rej Work Phone: [facility] 07-26-2021 11:03-0400 Respiratory rate 18 /min Treatment Rej Work Phone: [facility] 07-26-2021 11:03-0400 Systolic blood pressure 126 mm[Hg] Treatment Rej Work Phone: [facility] 07-05-2021 08:31-0400 Body temperature 98.1 [degF] Treatment Rej Work Phone: [facility] 07-05-2021 08:31-0400 Diastolic blood pressure 87 mm[Hg] Treatment Rej Work Phone: [facility] 07-05-2021 08:31-0400 Heart rate 103 /min Treatment Rej Work Phone: [facility] 07-05-2021 08:31-0400 Respiratory rate 18 /min Treatment Rej Work Phone: [facility] 07-05-2021 08:31-0400 Systolic blood pressure 121 mm[Hg] Treatment Rej Work Phone: [facility] 06-14-2021 08:25-0400 Body height 181 cm Cyn Hernandez MD Work Phone: [facility] 06-14-2021 08:25-0400 Body temperature 98.01 [degF] Cyn Hernandez MD Work Phone: [facility] 06-14-2021 08:25-0400 Diastolic blood pressure 74 mm[Hg] Cyn Hernandez MD Work Phone: [facility] 06-14-2021 08:25-0400 Heart rate 90 /min Cyn Hernandez MD Work Phone: [facility] 06-14-2021 08:25-0400 Systolic blood pressure 108 mm[Hg] Cyn Hernandez MD Work Phone: [facility] 05-17-2021 12:31-0400 Body temperature 97.2 [degF] Treatment Rej Work Phone: [facility] 05-17-2021 12:31-0400 Diastolic blood pressure 82 mm[Hg] Treatment Rej Work Phone: [facility] 05-17-2021 12:31-0400 Heart rate 94 /min Treatment Rej Work Phone: [facility] 05-17-2021 12:31-0400 SaO2% (BldA) [Mass fraction] 97 % Treatment Rej Work Phone: [facility] 05-17-2021 12:31-0400 Systolic blood pressure 124 mm[Hg] Treatment Rej Work Phone: [facility] 05-17-2021 11:09-0400 Body temperature 98.01 [degF] Irene Han HEAT READER.SEWAGE DISPOSAL ENGINEER Work Phone: [facility] 05-17-2021 11:09-0400 Diastolic blood pressure 72 mm[Hg] Irene Han HEAT READER.SEWAGE DISPOSAL ENGINEER Work Phone: [facility] 05-17-2021 11:09-0400 Heart rate 88 /min Irene Han HEAT READER.SEWAGE DISPOSAL ENGINEER Work Phone: [facility] 05-17-2021 11:09-0400 SaO2% (BldA) [Mass fraction] 98 % Irene Han HEAT READER.SEWAGE DISPOSAL ENGINEER Work Phone: [facility] 05-17-2021 11:09-0400 Systolic blood pressure 120 mm[Hg] Irene Han APRN.SEWAGE DISPOSAL ENGINEER Work Phone: [facility] 02-02-2021 10:15-0500 Body height 182.88 cm Kylie Johnson Other [employer] Other 02-02-2021 10:15-0500 Body temperature 97.4 [degF] Kylie Johnson Other [employer] Other 02-02-2021 10:15-0500 Respiratory rate 18 /min Kylie Johnson Other [employer] Other 02-02-2021 10:15-0500 SaO2% (BldA) [Mass fraction] 92 % Kylie Johnson Other [employer] Other Encounters Encounter Date Encounter Type Care Provider Facility Start: 07-04-2024 End: 07-05-2024 Refill Sheila Lin UNPAID INTERN Work Phone: [facility] Comment on above: Anxiety; Major depressive disorder, single episode, mild (HCC) (CMS/HCC); Neuropathy Start: 06-25-2024 End: 06-25-2024 Refill Irene Han APRN.SEWAGE DISPOSAL ENGINEER Work Phone: [facility] Comment on above: Refill Request Start: 06-24-2024 End: 06-25-2024 Refill Jani Carver MD Work Phone: [facility] Comment on above: Refill Request Start: 06-18-2024 End: 06-18-2024 Orders Only Bee Vail MD Work Phone: [facility] Comment on above: Primary insomnia Start: 06-08-2024 End: 06-08-2024 Bamboo flowsheet Sheila Lin UNPAID INTERN Work Phone: [facility] Start: 06-08-2024 End: 06-08-2024 Bamboo flowsheet Sheila Lin UNPAID INTERN Work Phone: [facility] Start: 06-08-2024 End: 06-09-2024 Patient encounter procedure Jani Carver MD Work Phone: [facility] Comment on above: C-pap Start: 06-08-2024 End: 06-09-2024 ambulatory SHEILA LIN Not Available Start: 06-08-2024 End: 06-08-2024 Office outpatient visit 25 minutes Sheila Lin UNPAID INTERN Work Phone: [facility] Comment on above: Asthma, unspecified asthma severity, unspecified whether complicated, unspecified whether persistent (CMS/HCC) (Primary Dx); Restrictive lung disease; Anxiety; Major depressive disorder, single episode, mild (HCC) (CMS/HCC); Primary insomnia; Nodular sclerosing Hodgkin's lymphoma, unspecified body region (CMS/HCC); Screening mammogram for breast cancer; Neuropathy; Left leg pain Start: 06-04-2024 End: 06-09-2024 Telephone encounter 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 APRN.CNP Work Phone: Internal Medicine Comment on above: Orders Start: 05-29-2024 End: 05-29-2024 Clinisync Result Encounter Generic External Data Provider [facility] Unsolicited Start: 05-29-2024 End: 05-29-2024 Clinisync Result Encounter Generic External Data Provider [facility] External [facility] Unsolicited Start: 05-29-2024 End: 06-04-2024 Follow-up encounter 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 APRN.SEWAGE DISPOSAL ENGINEER Work Phone: [facility] Provider Adult Start: 05-29-2024 End: 05-29-2024 ambulatory BEE VAIL Facility:[facility] Start: 05-29-2024 End: 05-29-2024 Subsequent hospital visit by physician General Olegario Artis Mc Work Phone: Radiology Comment on above: Pleural effusion [J9 0] Start: 05-27-2024 End: 05-28-2024 Refill Bee Vail MD Work Phone: [facility] Comment on above: Asthma, unspecified asthma severity, unspecified whether complicated, unspecified whether persistent (CMS/HCC) (Primary Dx) Start: 05-23-2024 End: 05-25-2024 ambulatory Irene Han APRN.SEWAGE DISPOSAL ENGINEER Work Phone: [facility] Comment on above: Pain Start: 05-20-2024 End: 05-20-2024 Follow-up encounter 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 APRN.CNP Work Phone: [facility]monary Medicine Comment on above: Cpap Order Start: 05-15-2024 End: 05-15-2024 ambulatory GLENDY RUSS Facility:[facility] Start: 05-12-2024 End: 05-12-2024 ambulatory KYLIE MILLER Facility:[facility] Start: 05-12-2024 End: 05-12-2024 Office outpatient visit 25 minutes 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 LORY.SEWAGE DISPOSAL ENGINEER Work Phone: [facility]monary Medicine Comment on above: Pleural effusion (Pr imary Dx); Bronchiectasis without complication (HCC); Restrictive lung disease; Chronic respiratory failure with hypoxia (HCC); Pulmonary hypertension (HCC) Start: 05-11-2024 End: 05-11-2024 Refill Bee Vail MD Work Phone: [facility] Comment on above: Anxiety Start: 05-08-2024 ambulatory JANI MEHUL Facility:[facility] Start: 05-08-2024 End: 05-08-2024 Subsequent hospital visit by physician Sae [facility] Work Phone: [facility] Radiology Ultrasound Comment on above: Pleural effusion [J9 0] Start: 05-07-2024 End: 05-07-2024 ambulatory Irenenydia Han APRN.SEWAGE DISPOSAL ENGINEER Work Phone: Palliative Medicine Comment on above: Question Start: 05-05-2024 End: 05-07-2024 E-mail encounter from caregiver [facility] Provider Hematology Start: 05-05-2024 End: 05-07-2024 Patient encounter procedure [facility] Provider Hematology Comment on above: Schedule Pulmonary N P Visit Start: 05-04-2024 End: 05-04-2024 Clinisync Result Encounter Generic External Data Provider [facility] External Department Unsolicited Start: 05-04-2024 End: 05-04-2024 Clinisync Result Encounter Generic External Data Provider [facility] External Department Unsolicited Start: 05-04-2024 End: 05-04-2024 Follow-up encounter Ruperto Ledezma MD Work Phone: Hematology/Oncology Comment on above: CXR results Start: 05-04-2024 End: 05-04-2024 Subsequent hospital visit by physician General Olegario Artis Mc Work Phone: Radiology Comment on above: Subacute cough [R05. 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); Autologous bone marrow transplantation status (HCC); Restrictive lung disease; Subacute cough Start: 05-03-2024 End: 05-04-2024 ambulatory Jani Carver MD Work Phone: Pulmonary Medicine Start: 05-03-2024 End: 05-04-2024 Patient encounter procedure Jani Carver MD Work Phone: Pulmonary Medicine Comment on above: Questions Start: 05-01-2024 End: 05-04-2024 Telephone encounter Ruperto Ledezma MD Work Phone: Hematology/Oncology Comment on above: Patient Update Start: 04-23-2024 End: 04-23-2024 ambulatory IRENE HAN Facility:[facility] Start: 04-23-2024 End: 04-23-2024 Patient encounter procedure Irene Han HEAT READER.SEWAGE DISPOSAL ENGINEER Work Phone: Palliative Medicine Comment on above: Palliative care by s pecialist (Primary Dx); Chronic pain syndrome; 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); Opioid use agreement exists; Chemotherapy-induced neuropathy (HCC); Headaches; Adjustment disorder with anxious mood Start: 04-22-2024 End: 04-24-2024 ambulatory Ruperto Ledezma MD Work Phone: Hematology/Oncology Comment on above: PET scan Start: 04-20-2024 End: 04-20-2024 Telephone encounter Carlo Medellin MA Pulmonary Medicine Comment on above: Appointment Confirma tion Start: 04-19-2024 End: 04-20-2024 Refill Jani Carver MD Work Phone: Pulmonary Medicine Comment on above: Refill Request Start: 04-10-2024 End: 04-13-2024 ambulatory 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 APRN.SEWAGE DISPOSAL ENGINEER Work Phone: Pulmonary Medicine Comment on above: Handicap placard Start: 04-08-2024 End: 04-08-2024 Bamboo flowsheet Gabrielle Zavala MD Work Phone: [facility] Start: 04-08-2024 End: 04-08-2024 Bamboo flowsheet Gabrielle Zavala MD Work Phone: [facility] Start: 04-08-2024 End: 04-08-2024 Office outpatient visit 15 minutes Gabrielle Zavala MD Work Phone: [facility] Comment on above: Pneumonia of right u pper lobe due to Streptococcus pneumoniae (CMS/HCC) (Primary Dx); Chronic rhinitis Start: 04-08-2024 End: 04-09-2024 Refill Bee Vail MD Work Phone: [facility] LPS IM Comment on above: Dermatitis (Primary Dx) Start: 04-07-2024 End: 04-07-2024 Refill Irene Han APRN.SEWAGE DISPOSAL ENGINEER Work Phone: Palliative Medicine Comment on above: Refill Request Start: 04-06-2024 End: 04-06-2024 Telephone encounter Ruperto Ledezma MD Work Phone: Hematology/Oncology Comment on above: Orders Start: 04-02-2024 End: 04-02-2024 Refill Ireen Han HEAT READER.SEWAGE DISPOSAL ENGINEER Work Phone: Palliative Medicine Comment on above: Refill Request Start: 03-25-2024 End: 04-02-2024 ambulatory 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 HEAT READER.SEWAGE DISPOSAL ENGINEER Work Phone: Pulmonary Medicine Comment on above: Nebulizer Start: 03-16-2024 End: 03-16-2024 Telephone encounter Carlo Medellin MA Pulmonary Medicine Comment on above: Care Coordination Start: 03-13-2024 End: 03-13-2024 Clinisync Result Encounter Generic External Data Provider [facility] External Department Unsolicited Start: 03-13-2024 End: 03-13-2024 Clinisync Result Encounter Generic External Data Provider [facility] External Department Unsolicited Start: 03-13-2024 End: 03-13-2024 Refill Sheila Lin UNPAID INTERN Work Phone: [facility] Comment on above: Nerve pain Start: 03-11-2024 End: 03-11-2024 Bamboo flowsheet Sheila Lin UNPAID INTERN Work Phone: [facility] Start: 03-11-2024 End: 03-11-2024 Bamboo flowsheet Sheila Lin UNPAID INTERN Work Phone: [facility] Start: 03-11-2024 End: 03-11-2024 ambulatory SHEILA LIN Not Available Start: 03-11-2024 End: 03-11-2024 Office outpatient visit 25 minutes Sheila Lin UNPAID INTERN Work Phone: [facility] Comment on above: Asthma, unspecified asthma severity, unspecified whether complicated, unspecified whether persistent (CMS/HCC) (Primary Dx); Restrictive lung disease; Major depressive disorder, single episode, mild (HCC) (CMS/HCC); Anxiety; Primary insomnia; Neuropathy; Pulmonary hypertension (CMS/HCC); Nodular sclerosis Hodgkin lymphoma, unspecified site (CMS/HCC) Start: 03-04-2024 End: 03-05-2024 ambulatory Elaine Petrona DO Work Phone: Pulmonology [facility] Comment on above: Question Refill Request Start: 02-27-2024 End: 02-27-2024 Telemedicine consultation with patient Irene Han APRN.CNP Work Phone: Palliative Medicine Start: 02-27-2024 End: 02-27-2024 ambulatory Irene Han APRN.CNP Work Phone: Palliative Medicine Comment on above: Palliative care by s pecialist (Primary Dx); 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); Opioid use agreement exists; Chronic pain syndrome; Muscle cramps; Pulmonary hypertension (HCC) Start: 02-27-2024 End: 02-27-2024 Patient encounter procedure Irene Han APRN.CNP Work Phone: Palliative Medicine Comment on above: Appointment Changed Start: 02-22-2024 End: 02-24-2024 Refill 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 APRN.CNP Work Phone: Pulmonary Medicine Comment on above: Refill Request Start: 02-17-2024 End: 02-20-2024 Telephone encounter Gabrielle Zavala MD Work Phone: [facility] Start: 02-11-2024 End: 02-14-2024 [facility] Work Phone: Neurology Comment on above: PSG Check In Start: 02-10-2024 End: 02-11-2024 Refill Bee Vail MD Work Phone: [facility] Comment on above: Anxiety Refill Request Start: 01-24-2024 End: 01-24-2024 Telephone encounter Elaine Petrona DO Work Phone: [facility] Invasive Cardiology Comment on above: Procedure Scheduling (RHC) Start: 01-21-2024 End: 01-21-2024 ambulatory PRABERTOAB PETRONA Facility:[facility] Start: 01-21-2024 End: 01-21-2024 Office outpatient new 45 minutes Prabertoab Petrona DO Work Phone: Pulmonology [facility] Comment on above: Pulmonary hypertensi on (HCC) (Primary Dx); Bronchiectasis without complication (HCC); Restrictive lung disease; Autologous bone marrow transplantation status (HCC); Recurrent pulmonary embolism (HCC); Moderate mitral regurgitation Start: 01-15-2024 End: 01-15-2024 Clinisync Result Encounter Generic External Data Provider [facility] External Department Unsolicited Start: 01-15-2024 End: 01-15-2024 Clinisync Result Encounter Generic External Data Provider [facility] External Department Unsolicited Start: 01-15-2024 End: 01-15-2024 Subsequent hospital visit by physician [facility] Work Phone: [facility] Radiology Molecular Comment on above: 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] Start: 01-15-2024 End: 01-15-2024 ambulatory SHEELA CHINO Facility:[facility] Start: 01-15-2024 End: 01-15-2024 ambulatory KYLIE MILLER Facility:[facility] Start: 01-15-2024 End: 01-15-2024 Patient encounter procedure Pulm Lab [facility] Work Phone: Pulmonary Medicine Comment on above: Spirometry Start: 01-14-2024 End: 01-14-2024 Telephone encounter Jocelyn GARCIA(R) [facility] Radiology Molecular Comment on above: Radiology NM (Appoin tment reminder.) Start: 01-13-2024 End: 01-14-2024 Refill Irene Han APRN.SEWAGE DISPOSAL ENGINEER Work Phone: Palliative Medicine Comment on above: Refill Request Start: 01-08-2024 End: 01-14-2024 Patient encounter procedure Jani Carver MD Work Phone: Pulmonary Medicine Comment on above: Test results Start: 01-08-2024 End: 01-14-2024 ambulatory Jani Carver MD Work Phone: Pulmonary Medicine Start: 01-07-2024 End: 01-07-2024 Telephone encounter Jani Carver MD Work Phone: Pulmonary Medicine Comment on above: 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 Start: 01-06-2024 End: 01-06-2024 Clinisync Result Encounter Generic External Data Provider [facility] External Department Unsolicited Start: 01-06-2024 End: 01-06-2024 Clinisync Result Encounter Generic External Data Provider [facility] External Department Unsolicited Start: 01-06-2024 End: 01-06-2024 Orders Only Jani Carver MD Work Phone: Pulmonary Medicine Comment on above: Hypoxia (Primary Dx) Other secondary pulm onary hypertension (HCC) (Primary Dx) Restrictive lung dis ease (Primary Dx); Bronchiectasis without complication (HCC); Chronic respiratory failure with hypoxia (HCC); 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); Autologous bone marrow transplantation status (HCC); Pleural effusion; Pulmonary hypertension (HCC) Start: 01-03-2024 End: 01-03-2024 Patient encounter procedure Korina Vega MD Work Phone: Cardiology Comment on above: Other acute pulmonar y embolism, unspecified whether acute cor pulmonale present (HCC) (Primary Dx); Pleural effusion, left; Pulmonary hypertension (HCC) Start: 01-03-2024 End: 01-06-2024 ambulatory 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 APRN.SEWAGE DISPOSAL ENGINEER Work Phone: Pulmonary Medicine Comment on above: 02 Start: 01-03-2024 End: 01-03-2024 Subsequent hospital visit by physician [facility] 3 Work Phone: [facility] Radiology Ultrasound Comment on above: Pleural effusion, le ft [J90] Start: 01-01-2024 End: 01-02-2024 ambulatory Irene Han APRN.SEWAGE DISPOSAL ENGINEER Work Phone: Palliative Medicine Comment on above: Pain Start: 12-26-2023 End: 12-26-2023 Telemedicine consultation with patient Irene Han LORY.SEWAGE DISPOSAL ENGINEER Work Phone: Palliative Medicine Start: 12-26-2023 End: 12-26-2023 ambulatory Irene Han APRN.SEWAGE DISPOSAL ENGINEER Work Phone: Palliative Medicine Comment on above: Palliative care by s pecialist (Primary Dx); Chronic pain syndrome; Opioid use agreement exists; 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); Chemotherapy-induced neuropathy (HCC) Start: 12-26-2023 End: 12-26-2023 Office outpatient visit 15 minutes Kodi Pantoja MD Work Phone: Pain Management Comment on above: Chemotherapy-induced neuropathy (HCC) (Primary Dx); 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 Start: 12-22-2023 End: 12-25-2023 ambulatory 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 APRAliceSEWAGE DISPOSAL ENGINEER Work Phone: Pulmonary Medicine Comment on above: CT scan Start: 12-20-2023 End: 12-23-2023 Clinisync Result Encounter Generic External Data Provider [facility] External Department Unsolicited Start: 12-20-2023 End: 12-23-2023 Clinisync Result Encounter Generic External Data Provider [facility] External Department Unsolicited Start: 12-18-2023 End: 12-20-2023 Evaluation and management of inpatient BEE VAIL Facility:[facility] Start: 12-17-2023 End: 12-17-2023 Telephone encounter 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 LORY.SEWAGE DISPOSAL ENGINEER Work Phone: Pulmonary Medicine Comment on above: oxygen orders Start: 12-17-2023 End: 12-18-2023 ambulatory 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 APRN.SEWAGE DISPOSAL ENGINEER Work Phone: Pulmonary Medicine Comment on above: Question Start: 12-17-2023 End: 12-17-2023 Office outpatient visit 40 minutes 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 LORY.SEWAGE DISPOSAL ENGINEER Work Phone: Pulmonary Medicine Comment on above: Acute hypoxic respir atory failure (HCC) (Primary Dx); Pneumonia due to infectious organism, unspecified laterality, unspecified part of lung; Restrictive lung disease; Bronchiectasis without complication (HCC) Start: 12-15-2023 End: 12-16-2023 Refill Irene Han APRN.SEWAGE DISPOSAL ENGINEER Work Phone: Palliative Medicine Comment on above: Refill Request Start: 12-13-2023 End: 12-16-2023 ambulatory 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 APRN.SEWAGE DISPOSAL ENGINEER Work Phone: Pulmonary Medicine Comment on above: Question Start: 12-12-2023 End: 12-12-2023 ambulatory Ruperto Ledezma MD Work Phone: Hematology/Oncology Comment on above: Pet results Start: 12-11-2023 End: 12-11-2023 E-mail encounter from caregiver Kodi Pantoja MD Work Phone: Pain Management Start: 12-11-2023 End: 12-11-2023 ambulatory Kodi Pantoja MD Work Phone: Pain Management Comment on above: PAIN QUESTIONNAIRE Start: 12-11-2023 End: 12-11-2023 Subsequent hospital visit by physician Arrival Time Radiology Work Phone: Radiology Pet CT Comment on above: 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) [C81.12] Start: 12-09-2023 End: 12-09-2023 Refill Charlee Zhao HEAT READER.SEWAGE DISPOSAL ENGINEER Work Phone: Palliative Medicine Comment on above: Refill Request Start: 12-04-2023 End: 12-04-2023 Bamboo flowsjam Zavala MD Work Phone: [facility] Start: 12-04-2023 End: 12-04-2023 Taryn Zavala MD Work Phone: [facility] Start: 12-04-2023 End: 12-04-2023 Office outpatient visit 25 minutes Gabrielle Zavala MD Work Phone: [facility] Comment on above: Chronic rhinitis (Pr imary Dx); Recurrent sinus infections Start: 12-04-2023 End: 12-04-2023 ambulatory GABRIELLE ZAVALA Not Available Start: 12-01-2023 End: 12-02-2023 Refill 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 HEAT READER.SEWAGE DISPOSAL ENGINEER Work Phone: Pulmonary Medicine Comment on above: Refill Request Start: 11-28-2023 End: 11-28-2023 Bamboo flowsheet Sheila Lin UNPAID INTERN Work Phone: [facility] Start: 11-28-2023 End: 11-28-2023 Bamboo flowsheet Sheila Lin UNPAID INTERN Work Phone: [facility] Start: 11-28-2023 End: 11-28-2023 ambulatory Irene Han HEAT READER.SEWAGE DISPOSAL ENGINEER Work Phone: Palliative Medicine Comment on above: Pain mgmt. Start: 11-28-2023 End: 11-28-2023 Office outpatient visit 25 minutes Sheila Lin NP Work Phone: [facility] Comment on above: Major depressive dis order, single episode, mild (HCC) (CMS/HCC) (Primary Dx); Anxiety; Primary insomnia; Restrictive lung disease; Mild intermittent asthma, unspecified whether complicated (CMS/HCC); Acquired hypothyroidism (CMS/HCC); Nodular sclerosing Hodgkin's lymphoma, unspecified body region (CMS/HCC); Neuropathy; Daily headache Start: 11-25-2023 End: 12-02-2023 Refill Bee Vail MD Work Phone: [facility] Comment on above: Multiple subsegmenta l pulmonary emboli without acute cor pulmonale (CMS/HCC) (Primary Dx) Scans Inhaler Start: 11-21-2023 End: 11-21-2023 Patient encounter procedure Severo Ardon RT(R) Radiology Start: 11-21-2023 End: 11-21-2023 Refill 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 APRN.CNP Work Phone: Pulmonary Medicine Comment on above: Med Change Request Start: 11-21-2023 End: 11-26-2023 Telephone encounter 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 APRN.CNP Work Phone: Pulmonary Medicine Comment on above: Received Outside Med ical Records; Request Outside Medical Records Start: 11-21-2023 End: 11-21-2023 Subsequent hospital visit by physician Xr [facility] Radiology Comment on above: Pneumonia due to inf ectious organism, unspecified laterality, unspecified part of lung [J18.9] Start: 11-21-2023 End: 11-21-2023 ambulatory Severo Ardon RT(R) Radiology Comment on above: Radiology XR Start: 11-21-2023 End: 11-21-2023 Office outpatient visit 40 minutes 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 APRN.SEWAGE DISPOSAL ENGINEER Work Phone: Pulmonary Medicine Comment on above: Pneumonia due to inf ectious organism, unspecified laterality, unspecified part of lung (Primary Dx); Bronchiectasis without complication (HCC); Restrictive lung disease; Oropharyngeal dysphagia; Voice impairment Start: 11-20-2023 End: 11-20-2023 Bamboo flowsheet Gabrielle Zavala MD Work Phone: [facility] Start: 11-20-2023 End: 11-20-2023 Bamboo flowsheet Gabrielle Zavala MD Work Phone: [facility] Start: 11-20-2023 End: 11-28-2023 Orders Only Gabrielle Zavala MD Work Phone: [facility] External Department Unsolicited Start: 11-20-2023 End: 11-20-2023 Office outpatient new 30 minutes Gabrielle Zavala MD Work Phone: [facility] Comment on above: Pneumonia of right u pper lobe due to Streptococcus pneumoniae (CMS/HCC) (Primary Dx); Recurrent sinus infections Start: 11-20-2023 End: 11-20-2023 ambulatory GABRIELLE ZAVALA Not Available Start: 11-14-2023 End: 11-14-2023 Telemedicine consultation with patient Irene Han APRN.SEWAGE DISPOSAL ENGINEER Work Phone: Palliative Medicine Start: 11-14-2023 End: 11-14-2023 ambulatory Kodi Pantoja MD Work Phone: Pain Management Comment on above: Pain Questionnaire Palliative care by s pecialist (Primary Dx); 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); Chemotherapy-induced neuropathy (HCC); Opioid use agreement exists; Chronic pain syndrome Start: 11-14-2023 End: 11-14-2023 E-mail encounter from caregiver Kodi Pantoja MD Work Phone: Pain Management Start: 11-12-2023 End: 11-13-2023 Refill Irene Han APRN.SEWAGE DISPOSAL ENGINEER Work Phone: Palliative Medicine Comment on above: Refill Request Anxiety Start: 11-11-2023 End: 11-11-2023 Clinisync Result Encounter Generic External Data Provider [facility] External Department Unsolicited Start: 11-11-2023 End: 11-11-2023 Clinisync Result Encounter Generic External Data Provider [facility] External Department Unsolicited Start: 11-11-2023 End: 11-11-2023 Patient encounter procedure Ellyn Lopez APRN.CNP Work Phone: Hematology/Oncology Start: 11-11-2023 End: 11-11-2023 ambulatory Ellyn Lopez APRN.SEWAGE DISPOSAL ENGINEER Work Phone: Hematology/Oncology Comment on above: 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); Autologous bone marrow transplantation status (HCC); Other pulmonary embolism without acute cor pulmonale, unspecified chronicity (HCC); Chemotherapy-induced neuropathy (HCC) Start: 11-08-2023 End: 11-12-2023 Telephone encounter Ellyn Lopez APRN.SEWAGE DISPOSAL ENGINEER Work Phone: Hematology/Oncology Start: 11-06-2023 End: 11-06-2023 Bamboo flowsheet Sheila Lin UNPAID INTERN Work Phone: [facility] Start: 11-06-2023 End: 11-06-2023 Bamboo flowsheet Sheila Lin UNPAID INTERN Work Phone: [facility] Start: 11-06-2023 End: 11-06-2023 Office outpatient visit 15 minutes Sheila Lin UNPAID INTERN Work Phone: [facility] Comment on above: Pneumonia due to inf ectious organism, unspecified laterality, unspecified part of lung (Primary Dx); Acute respiratory failure, unspecified whether with hypoxia or hypercapnia (CMS/HCC); Restrictive lung disease Start: 11-06-2023 End: 11-06-2023 ambulatory SHEILA LIN Not Available Start: 11-05-2023 End: 11-05-2023 Telephone encounter Sheila Lin UNPAID INTERN Work Phone: [facility] Comment on above: Record Request Start: 10-29-2023 End: 10-29-2023 ambulatory Carole Ruano APRN.SEWAGE DISPOSAL ENGINEER Work Phone: Pulmonary Medicine Start: 10-29-2023 End: 10-29-2023 Patient encounter procedure Carole Ruano APRN.SEWAGE DISPOSAL ENGINEER Work Phone: Pulmonary Medicine Comment on above: Schedule Appointment Start: 10-24-2023 End: 10-24-2023 ambulatory Katarzyna Orosco APRN.CNP Work Phone: Pain Management Comment on above: Questionnaire Kenneth venturaon Start: 10-24-2023 End: 10-24-2023 E-mail encounter from caregiver Katarzyna Orosco LORY.PEDRO Work Phone: Pain Management Start: 10-18-2023 End: 10-18-2023 ambulatory No Pcp HEAT READER [facility] Start: 10-18-2023 End: 10-18-2023 Patient encounter procedure No Pcp HEAT READER [facility] Start: 10-17-2023 End: 10-17-2023 ambulatory IRENE HAN Facility:[facility] Start: 10-17-2023 End: 10-17-2023 Patient encounter procedure Irene Emely HENLEY.SEWAGE DISPOSAL ENGINEER Work Phone: Palliative Medicine Comment on above: Encounter for pallia tive care (Primary Dx); 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); Chemotherapy-induced neuropathy (HCC); Cancer related pain; Chronic pain syndrome Start: 10-15-2023 End: 10-15-2023 ambulatory CAROLE RUANO Facility:[facility] Start: 10-15-2023 End: 10-15-2023 Patient encounter procedure Pulm Lab [facility] Work Phone: Pulmonary Medicine Comment on above: Spirometry Start: 10-09-2023 End: 10-09-2023 Patient encounter procedure Yasmeen Fine RT(R) Radiology Start: 10-09-2023 End: 10-09-2023 Subsequent hospital visit by physician Xr [facility] Radiology Comment on above: Polyarthralgia [M25. 50] Start: 10-09-2023 End: 10-10-2023 ambulatory Yasmeen Fine RT(R) Radiology Comment on above: Radiology XR Anxiety Start: 10-09-2023 End: 10-09-2023 Office consultation new/estab patient 80 min Simin Brandt MD Work Phone: Rheumatology Comment on above: Polyarthralgia (Prim destin Dx); Psoriasis Start: 09-30-2023 Refill Charlee Zhao APRN.SEWAGE DISPOSAL ENGINEER Work Phone: Palliative Medicine Comment on above: Refill Request Start: 09-25-2023 Refill Irene Han APRN.CNP Work Phone: [facility] Comment on above: Refill Request Start: 09-19-2023 End: 09-19-2023 ambulatory Irene Han APRN.PEDRO Work Phone: Palliative Medicine Comment on above: Encounter for pallia tive care (Primary Dx); Muscle cramps; Nodular sclerosing Hodgkin's lymphoma, unspecified body region (HCC); Opioid use agreement exists; Chronic nonmalignant pain; Chemotherapy-induced neuropathy (HCC); 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); Psoriatic arthritis (HCC) Start: 09-19-2023 End: 09-19-2023 Telemedicine consultation with patient Irene Emely VALENTE Work Phone: Palliative Medicine Start: 09-18-2023 End: 09-18-2023 ambulatory ANIL FRANCO Facility:[facility] Start: 09-18-2023 End: 09-18-2023 Patient encounter procedure Anil Franco PA-C Work Phone: Otolaryngology Comment on above: Dysphagia, unspecifi ed type; Hoarseness; LPRD (laryngopharyngeal reflux disease) Start: 09-16-2023 ambulatory Irene Han APRN.CNP Work Phone: Palliative Medicine Comment on above: Video visit Start: 08-29-2023 Telephone encounter Irene cedillo APRN.CNP Work Phone: Palliative Medicine Start: 08-27-2023 End: 08-27-2023 ambulatory SHERLY BRUNER Facility:[facility] Start: 08-27-2023 End: 08-27-2023 Patient encounter procedure Sherly Bruner PA-C Work Phone: Orthopaedics Comment on above: Tendinitis, de [place] ain's (Primary Dx) Start: 08-26-2023 End: 08-26-2023 ambulatory Irene Han APRN.CNP Work Phone: Palliative Medicine Comment on above: Oxycodone Meds Start: 08-22-2023 Refill Carole Ruano LORY.SEWAGE DISPOSAL ENGINEER Work Phone: Pulmonary Medicine Comment on above: Refill Request Start: 08-13-2023 Refill Carole Ruano LORY.SEWAGE DISPOSAL ENGINEER Work Phone: Pulmonary Medicine Comment on above: Refill Request Start: 08-12-2023 End: 08-12-2023 ambulatory Irene Han APRN.SEWAGE DISPOSAL ENGINEER Work Phone: Palliative Medicine Comment on above: Muscle cramps (Prima ry Dx); Nodular sclerosing Hodgkin's lymphoma, unspecified body region (HCC); Chemotherapy-induced neuropathy (HCC); Encounter for palliative care; Psoriatic arthritis (HCC); Arthritis pain; Chronic nonmalignant pain; Opioid use agreement exists Start: 08-12-2023 End: 08-12-2023 Telemedicine consultation with patient Irene Han LORY.SEWAGE DISPOSAL ENGINEER Work Phone: Palliative Medicine Start: 08-12-2023 E-mail encounter fro m caregiver [facility] Provider Hematology/Medical Oncology Start: 08-12-2023 Follow-up encounter [facility] Provider Hem atology/Medical Oncology Comment on above: Palliative Medicine Follow Up Start: 08-08-2023 End: 08-08-2023 ambulatory Irene Han APRN.SEWAGE DISPOSAL ENGINEER Work Phone: Palliative Medicine Comment on above: Oxycodone Start: 08-06-2023 End: 08-06-2023 ambulatory CAROLE RUANO Facility:[facility] Start: 08-06-2023 End: 08-06-2023 Patient encounter procedure Carole Ruano LORY.SEWAGE DISPOSAL ENGINEER Work Phone: Pulmonary Medicine Comment on above: Pneumonia due to inf ectious organism, unspecified laterality, unspecified part of lung (Primary Dx); Pulmonary hypertension (HCC); Hospital discharge follow-up Start: 08-05-2023 End: 08-05-2023 Refill Irene Han APRN.SEWAGE DISPOSAL ENGINEER Work Phone: Palliative Medicine Comment on above: Refill Request 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); Restrictive lung disease; Anxiety and depression Start: 08-04-2023 ambulatory Irene Han APRN.SEWAGE DISPOSAL ENGINEER Work Phone: Palliative Medicine Start: 08-04-2023 Patient encounter procedure Irene Han APRN.SEWAGE DISPOSAL ENGINEER Work Phone: Palliative Medicine Comment on above: Appointment Start: 08-01-2023 ambulatory Carole Ruano LORY.SEWAGE DISPOSAL ENGINEER Work Phone: Pulmonary Medicine Start: 08-01-2023 Patient encounter procedure Carole Ruano HEAT READER.SEWAGE DISPOSAL ENGINEER Work Phone: Pulmonary Medicine Comment on above: Schedule Appointment Start: 07-30-2023 Orders Only Sherly Bruner PA-C Work Phone: Appointment Center Comment on above: Pain (Primary Dx) Start: 07-19-2023 End: 07-19-2023 ambulatory ANIL MAURO Facility:[facility] Start: 07-19-2023 End: 07-19-2023 Subsequent hospital visit by physician [facility] Qb1 (I-Stat) Radiology Comment on above: Dysphagia, unspecifi ed type [R13.10] Start: 2023 End: 2023 ambulatory Irene Han APRN.SEWAGE DISPOSAL ENGINEER Work Phone: Palliative Medicine Comment on above: Memory Start: 2023 End: 2023 Patient encounter procedure Irene Han APRN.SEWAGE DISPOSAL ENGINEER Work Phone: Palliative Medicine Comment on above: Encounter for pallia tive care (Primary Dx); Muscle cramps; Nodular sclerosing Hodgkin's lymphoma, unspecified body region (HCC); Arthritis pain; 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); Chemotherapy-induced neuropathy (HCC); Cancer related pain Start: 07-10-2023 End: 07-10-2023 Patient encounter procedure Cynthia Guajardo [facility]-RN DOCUMENTATION SPECIALIST Work Phone: [facility] Speech Therapy Comment on above: Dysphagia, unspecifi ed type (Primary Dx) Start: 07-10-2023 End: 07-10-2023 Subsequent hospital visit by physician Gi/Gu [facility] Work Phone: [facility] Radiology Gastrointestinal Comment on above: Dysphagia, unspecifi ed type [R13.10] Start: 07-10-2023 End: 07-10-2023 ambulatory Cynthia Guajardo CCC-RN DOCUMENTATION SPECIALIST Work Phone: [facility] Speech Therapy Start: 06-28-2023 End: 06-28-2023 ambulatory BEE Degroot VAIL Facility:[facility] Start: 06-28-2023 End: 06-28-2023 Patient encounter procedure Jani Carver MD Work Phone: Pulmonary Medicine Comment on above: Restrictive lung dis ease (Primary Dx); History of pulmonary embolism; Autologous bone marrow transplantation status (HCC); 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); Bronchiectasis without complication (HCC); Simple chronic bronchitis (HCC) Start: 06-14-2023 E-mail encounter fro m caregiver Carole Ruano APRN.SEWAGE DISPOSAL ENGINEER Work Phone: Pulmonary Medicine Start: 06-14-2023 Follow-up encounter Carole valentin APRN.SEWAGE DISPOSAL ENGINEER Work Phone: Pulmonary Medicine Comment on above: Follow Up Start: 06-13-2023 Telephone encounter Carole valentin APRN.SEWAGE DISPOSAL ENGINEER Work Phone: Pulmonary Medicine Comment on above: Medication Authoriza tion Start: 06-13-2023 End: 06-13-2023 Office outpatient visit 40 minutes Carole Ruano APRN.SEWAGE DISPOSAL ENGINEER Work Phone: Pulmonary Medicine Comment on above: Bronchitis (Primary Dx); Acute non-recurrent pansinusitis; Oral thrush; Restrictive lung disease; Pleural effusion Start: 06-11-2023 Telephone encounter Jeny Zaidi Hematology/Oncology Comment on above: Results Start: 06-10-2023 End: 06-10-2023 ambulatory Ruperto Ledezma MD Work Phone: Hematology/Oncology Comment on above: 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); Restrictive lung disease; Malaise and fatigue Start: 06-10-2023 End: 06-10-2023 Patient encounter procedure Ruperto Ledezma MD Work Phone: Hematology/Oncology Start: 06-09-2023 Refill Irene Han APRN.SEWAGE DISPOSAL ENGINEER Work Phone: Palliative Medicine Comment on above: Refill Request Start: 05-31-2023 End: 05-31-2023 Subsequent hospital visit by physician Xr [facility] Radiology Comment on above: Wheezing [R06.2] Start: 05-31-2023 End: 05-31-2023 Office outpatient visit 25 minutes Zoila Aguirre HEAT READER.SEWAGE DISPOSAL ENGINEER Work Phone: [facility] Comment on above: Restrictive lung dis ease (Primary Dx); Wheezing Start: 05-31-2023 ambulatory Gunjan Matamoros me RT(R) Radiology Comment on above: Radiology XR Start: 05-31-2023 Patient encounter procedure Gunjan Matamorosme RT(R) [facility] [place] [facility] Start: 05-28-2023 Refill Carole Ruano APRN.SEWAGE DISPOSAL ENGINEER Work Phone: Pulmonary Medicine Comment on above: Med Change Request Start: 05-22-2023 End: 05-22-2023 Patient encounter procedure Anil Franco PA-C Work Phone: Otolaryngology Comment on above: Dysphagia, unspecifi ed type; Hoarseness; Gastroesophageal reflux disease, unspecified whether esophagitis present; LPRD (laryngopharyngeal reflux disease) Start: 05-21-2023 ambulatory Ruperto Ledezma MD Work Phone: Hematology/Oncology Comment on above: Pet scan Start: 05-20-2023 End: 05-20-2023 Subsequent hospital visit by physician Arrival Time Radiology Work Phone: Radiology Pet CT Comment on above: 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) [C81.12] Start: 05-12-2023 Refill Irene Han HEAT READER.SEWAGE DISPOSAL ENGINEER Work Phone: Palliative Medicine Comment on above: Refill Request Start: 05-10-2023 ambulatory Ruperto Ledezma MD Work Phone: Hematology/Oncology Comment on above: Pet scan Start: 05-07-2023 Refill Irene Han APRN.SEWAGE DISPOSAL ENGINEER Work Phone: Palliative Medicine Comment on above: Refill Request Start: 04-19-2023 End: 04-19-2023 Subsequent hospital visit by physician [facility] Work Phone: [facility] Radiology General Comment on above: Influenza with pneum onia [J11.00] Start: 04-19-2023 End: 04-19-2023 Office outpatient visit 40 minutes Carole Ruano HEAT READER.SEWAGE DISPOSAL ENGINEER Work Phone: Pulmonary Medicine Comment on above: Influenza with pneum onia (Primary Dx); Restrictive lung disease; Hospital discharge follow-up Start: 04-16-2023 End: 04-16-2023 ambulatory Ruperto Ledezma MD Work Phone: Hematology/Oncology Comment on above: 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); Restrictive lung disease; Malaise and fatigue Start: 04-16-2023 End: 04-16-2023 Patient encounter procedure Ruperto Ledezma MD Work Phone: [facility] Start: 04-08-2023 Refill Irene Han HEAT READER.SEWAGE DISPOSAL ENGINEER Work Phone: Palliative Medicine Comment on above: Refill Request Start: 04-01-2023 Telephone encounter Ellyn figueroa HEAT READER.SEWAGE DISPOSAL ENGINEER Work Phone: Hematology/Oncology Comment on above: Lab Orders Start: 03-29-2023 Refill Ellyn Keller UNPAID INTERN Work Phone: [facility] Comment on above: COVID-19 Start: 03-29-2023 End: 03-29-2023 Office outpatient visit 15 minutes Ellyn Keller UNPAID INTERN Work Phone: [facility] Comment on above: COVID-19 (Primary Dx ) Start: 03-28-2023 End: 03-28-2023 Office outpatient visit 25 minutes 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 HEAT READER.SEWAGE DISPOSAL ENGINEER Work Phone: Pulmonary Medicine Comment on above: Restrictive lung dis ease (Primary Dx); Chronic cough; Post-nasal drip; Hoarseness; Dysphagia, unspecified type; History of pulmonary embolism Start: 03-28-2023 End: 03-28-2023 ambulatory Pulm 2 Work Phone: Pulmonary Medicine Comment on above: Spirometry Start: 03-28-2023 End: 03-28-2023 Patient encounter procedure Pulm Lab [facility] 2 Work Phone: [facility] Start: 01-29-2023 End: 01-29-2023 Departed Referred MD Bee Vail Work Phone: [facility] [place] Work Phone: Start: 01-29-2023 End: 01-29-2023 ambulatory MD Bee Vail Work Phone: [employer] Other Start: 01-29-2023 Office outpatient vi sit 15 minutes Keke Bright [facility] Start: 01-28-2023 Telephone encounter Ruperto schmidt MD Work Phone: Hematology/Oncology Comment on above: Orders Start: 01-28-2023 End: 01-28-2023 Subsequent hospital visit by physician Arrival Time Radiology Work Phone: Radiology Pet CT Comment on above: 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) [C81.18] Start: 01-06-2023 Refill Irene Han APRN.CNP Work Phone: Palliative Medicine Comment on above: Refill Request Start: 01-02-2023 Telephone encounter Ruperto schmidt MD Work Phone: Radiation Oncology Comment on above: Results Start: 01-01-2023 End: 01-01-2023 ambulatory Ruperto Ledezma MD Work Phone: Hematology/Oncology Comment on above: 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); Autologous bone marrow transplantation status (HCC); Restrictive lung disease; History of DVT (deep vein thrombosis); Chemotherapy-induced neuropathy (HCC) ; Psoriasis; Cancer associated pain; Acquired hypothyroidism Start: 01-01-2023 End: 01-01-2023 Patient encounter procedure Ruperto Ledezma MD Work Phone: [facility] Start: 12-31-2022 Chart abstracting Ruperto kumar MD Work Phone: Hematology/Oncology Start: 12-16-2022 ambulatory Jani Carver MD Work Phone: [facility] Start: 12-16-2022 Patient encounter procedure Jani Carver MD Work Phone: Pulmonary Medicine Comment on above: Appointment Start: 11-28-2022 Refill Cyn Hernandez MD Work Phone: Hematology Comment on above: Refill Request Start: 11-26-2022 ambulatory Cyn Hernandez MD Work Phone: [facility] Start: 11-26-2022 Patient encounter procedure Cyn Hernandez MD Work Phone: Hematology Comment on above: Appointment Start: 11-13-2022 Refill Sylvia Mancilla HEAT READER.SEWAGE DISPOSAL ENGINEER Work Phone: Hematology Comment on above: Refill Request Start: 11-08-2022 Refill Cyn Hernandez MD Work Phone: Hematology Comment on above: Refill Request Start: 11-05-2022 Refill Charlee Zhao HEAT READER.SEWAGE DISPOSAL ENGINEER Work Phone: [facility] Medicine Comment on above: Refill Request Start: 10-25-2022 Refill Cyn Hernandez MD Work Phone: Hematology Comment on above: Refill Request Start: 10-23-2022 ambulatory Irene Han HEAT READER.SEWAGE DISPOSAL ENGINEER Work Phone: Palliative Medicine Comment on above: Lyrica Start: 10-18-2022 Telephone encounter Kylie Mosher RN [facility] Comment on above: Insurance Authorizat ion Start: 10-18-2022 End: 10-18-2022 Patient encounter procedure Irene Han HEAT READER.SEWAGE DISPOSAL ENGINEER Work Phone: Palliative Medicine Comment on above: Palliative care by s pecialist (Primary Dx); Nodular sclerosing Hodgkin's lymphoma, unspecified body region (HCC); Cancer related pain; Opioid use agreement exists; Muscle cramps Start: 10-18-2022 End: 10-18-2022 Nursing evaluation of patient and report Nurse Derm [facility] [place] Work Phone: D[facility]ology [place] Comment on above: Hidradenitis suppura tiva (Primary Dx); Painful skin lesion Start: 10-08-2022 Refill Irene Han HEAT READER.SEWAGE DISPOSAL ENGINEER Work Phone: [facility] Palliative Medicine Comment on above: Refill Request Start: 10-06-2022 Refill Irene Han HEAT READER.SEWAGE DISPOSAL ENGINEER Work Phone: [facility] Palliative Medicine Comment on above: Refill Request Start: 10-01-2022 Refill Cyn Hernandez MD Work Phone: Hematology Comment on above: Refill Request Start: 09-13-2022 End: 09-13-2022 Patient encounter procedure Jani Carver MD Work Phone: Pulmonary Medicine Comment on above: Restrictive lung dis ease (Primary Dx); 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); Autologous bone marrow transplantation status (HCC); Chronic cough; History of pulmonary embolism Start: 09-10-2022 Refill Cyn Hernandez MD Work Phone: Hematology Comment on above: Refill Request Start: 08-30-2022 ambulatory Cyn Hernandez MD Work Phone: Hematology Comment on above: Ativan Start: 08-29-2022 ambulatory Cyn Hernandez MD Work Phone: Hematology Comment on above: Ativan Start: 08-29-2022 Refill Cyn Hernandez MD Work Phone: Hematology Comment on above: Refill Request Start: 08-27-2022 Refill Cyn Hernandez MD Work Phone: Hematology Comment on above: Refill Request Start: 08-27-2022 Refill Cyn Hernandez MD Work Phone: Hematology Comment on above: Refill Request Start: 08-22-2022 End: 08-22-2022 ambulatory Cyn Hernandez MD Work Phone: Hematology Comment on above: 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) Start: 08-22-2022 End: 08-22-2022 Patient encounter procedure Cyn Hernandez MD Work Phone: JANAE Lopes [facility] Start: 08-14-2022 End: 08-14-2022 Subsequent hospital visit by physician Arrival Time Radiology Work Phone: Radiology Pet CT Comment on above: Nodular sclerosing H odgkin's lymphoma, unspecified body region (HCC) [C81.10] Start: 08-13-2022 Refill Irene Han HEAT READER.SEWAGE DISPOSAL ENGINEER Work Phone: [facility] Palliative Medicine Comment on above: Refill Request Start: 08-09-2022 Refill Cyn Hernandez MD Work Phone: Hematology Comment on above: Refill Request Start: 08-07-2022 Refill Cyn Hernandez MD Work Phone: Hematology Comment on above: Refill Request Start: 08-02-2022 Telephone encounter Don schafer HEAT READER.SEWAGE DISPOSAL ENGINEER Work Phone: Pulmonary Medicine Comment on above: Patient Update Start: 08-01-2022 End: 08-01-2022 Patient encounter procedure Don Chan HEAT READER.SEWAGE DISPOSAL ENGINEER Work Phone: Pulmonary Medicine Comment on above: Chronic cough (Prima ry Dx); Productive cough; Dyspnea on exertion; Opacity of lung on imaging study Start: 07-25-2022 ambulatory Nova Leija HEAT READER.SEWAGE DISPOSAL ENGINEER [facility] Start: 07-25-2022 Patient encounter procedure Nova Leija HEAT READER.SEWAGE DISPOSAL ENGINEER Work Phone: Dermatology [place] Comment on above: Appointment Start: 07-24-2022 Refill Cyn Hernandez MD Work Phone: Hematology Comment on above: Refill Request Start: 07-22-2022 ambulatory Cyn Hernandez MD Work Phone: Hematology Comment on above: Ativan Start: 07-19-2022 End: 07-19-2022 Patient encounter procedure Irene Han HEAT READER.SEWAGE DISPOSAL ENGINEER Work Phone: Palliative Medicine Comment on above: Palliative care by s pecialist (Primary Dx); Opioid use agreement exists; Cancer related pain; Chemotherapy-induced neuropathy (HCC); 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); Muscle cramps Start: 07-18-2022 End: 07-18-2022 ambulatory Irene Han HEAT READER.SEWAGE DISPOSAL ENGINEER Work Phone: [place] Comment on above: Nodular sclerosing H odgkin's lymphoma, unspecified body region (HCC) (Primary Dx) Start: 07-18-2022 End: 07-18-2022 Patient encounter procedure Irene Han APRN.SEWAGE DISPOSAL ENGINEER Work Phone: Palliative Medicine Comment on above: Appointment Start: 07-17-2022 ambulatory Melissa Pycraft RT(R) Rad iology Ct Scan Comment on above: Radiology CT Start: 07-17-2022 Patient encounter procedure Melissa Pycraft RT(R) [facility] Start: 07-16-2022 Refill Irene Han HEAT READER.SEWAGE DISPOSAL ENGINEER Work Phone: [facility] Palliative Medicine Comment on above: Refill Request Start: 06-21-2022 End: 06-21-[address] PEGUERO [facility] Facility: Start: 06-13-2022 Telephone encounter Don schafer HEAT READER.SEWAGE DISPOSAL ENGINEER Work Phone: Pulmonary Medicine Comment on above: New Medication Start: 06-12-2022 End: 06-12-2022 ambulatory Cyn Hernandez MD Work Phone: Hematology Comment on above: 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); Uterine leiomyoma, unspecified location Start: 06-12-2022 End: 06-12-2022 Telemedicine consultation with patient Cyn Hernandez MD Work Phone: [facility] Start: 06-11-2022 Refill Cyn Hernandez MD Work Phone: Hematology Comment on above: Refill Request Start: 06-09-2022 ambulatory Cyn Hernandez MD Work Phone: [facility] Start: 06-09-2022 Patient encounter procedure Cyn Hernandez MD Work Phone: Hematology Comment on above: Appointment Start: 05-31-2022 End: 05-31-2022 Subsequent hospital visit by physician [facility] Work Phone: Radiology Comment on above: Acute cough [R05.1] Start: 05-18-2022 End: 05-18-2022 Telemedicine consultation with patient Jane Del Valle MD Work Phone: [facility] Start: 05-18-2022 End: 05-18-2022 ambulatory Cyn Hernandez MD Work Phone: Hematology Comment on above: Labs NO SHOW (Primary Dx) Start: 05-14-2022 Refill Cyn Hernandez MD Work Phone: Hematology Comment on above: [...] Start: 04-23-2022 End: 04-23-2022 Patient encounter procedure Irene Han APRN.SEWAGE DISPOSAL ENGINEER Work Phone: Palliative Medicine Comment on above: Encounter for pallia tive care (Primary Dx); 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); Chemotherapy-induced neuropathy (HCC); Cancer related pain; Muscle cramps; Opioid use agreement exists Start: 04-20-2022 Telephone encounter Char garcia RN Work Phone: Radiation Oncology Comment on above: Post Radiation Treat ment Follow Up Start: 04-16-2022 Refill Irene Han APRN.SEWAGE DISPOSAL ENGINEER Work Phone: [facility] Comment on above: Refill Request Start: 04-11-2022 Patient encounter procedure Jane Del Valle MD Work Phone: [facility] Start: 04-11-2022 Radiation Oncology Note [...] Patient encounter procedure [facility] Provider [facility] Comment on above: 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) Start: 03-23-2022 Radiation Oncology Note [facility] Provider [facility] Department Comment on above: RTT Injection Treatment Planning Start: 03-23-2022 End: 03-23-2022 Nursing evaluation of patient and report Nurse Cathleen Main Work Phone: Radiation Oncology Comment on above: 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); Autologous bone marrow transplantation status (HCC) Start: 03-22-2022 Telephone encounter Dary Gonzalez RN Radiation Oncology Start: 03-15-2022 Refill Lesley Figueroa on HEAT READER.SEWAGE DISPOSAL ENGINEER Work Phone: [facility] Palliative Medicine Comment on above: Refill Request Start: 03-12-2022 End: 03-12-2022 ambulatory Jane Del Valle MD Work Phone: Radiation Oncology Comment on above: 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) Start: 03-12-2022 End: 03-12-2022 Telemedicine consultation with patient Jane Del Valle MD Work Phone: [facility] Start: 03-07-2022 End: 03-07-2022 ambulatory Cyn Hernandez MD Work Phone: Hematology Comment on above: Chemotherapy-induced neuropathy (HCC) (Primary Dx) Start: 03-07-2022 End: 03-07-2022 Patient encounter procedure Cyn Hernandez MD Work Phone: [facility] Start: 03-05-2022 Refill Sylvia Mancilla APRN.SEWAGE DISPOSAL ENGINEER Work Phone: Hematology Comment on above: Refill Request Start: 02-26-2022 End: 02-26-2022 Subsequent hospital visit by physician Arrival Time Radiology Work Phone: Radiology Pet CT Comment on above: Nodular sclerosing H odgkin's lymphoma, unspecified body region (HCC) [C81.10] Start: 02-14-2022 End: 02-14-2022 ambulatory Treatment 11 Delfino Rej Work Phone: Hematology Comment on above: 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); Encounter for antineoplastic immunotherapy Start: 02-09-2022 Orders Only Antonia Lisa MD Work Phone: [facility] Provider Hemonc Start: 01-25-2022 End: 01-26-2022 ambulatory BEE Mikayla SALCEDOE Facility:[facility] Start: 01-25-2022 End: 01-25-2022 Patient encounter procedure Irene Han APRN.SEWAGE DISPOSAL ENGINEER Work Phone: [facility] Pall[facility] Medicine Comment on above: Encounter for pallia tive care (Primary Dx); Opioid use agreement exists; Anxiety; Cancer related pain; Chemotherapy-induced neuropathy (HCC); 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); Muscle cramps Start: 01-22-2022 Refill Irene Han APRN.SEWAGE DISPOSAL ENGINEER Work Phone: [facility] Palliative Medicine Comment on above: Refill Request Start: 01-19-2022 Refill Cyn Hernandez MD Work Phone: Hematology Comment on above: Refill Request Start: 01-18-2022 End: 01-18-2022 ambulatory Treatment 12 Delfino Rej Work Phone: Hematology Comment on above: 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) Start: 01-17-2022 ambulatory Cyn Hernandez MD Work Phone: [facility] Start: 01-17-2022 Patient encounter procedure Cyn Hernandez MD Work Phone: Hematology Comment on above: Appointment Start: 01-15-2022 Refill Cheryl velázquez HEAT READER.SEWAGE DISPOSAL ENGINEER Work Phone: [facility] Palliative Medicine Comment on above: Refill Request Start: 01-14-2022 Refill Cyn Hernandez MD Work Phone: Hematology Comment on above: [...] lymphoma, unspecified body region (HCC) (Primary Dx); BAEZ (dyspnea on exertion); Chronic cough; Chest tightness Start: 12-27-2021 End: 12-27-2021 Patient encounter procedure Sylvia Mancilla HEAT READER.SEWAGE DISPOSAL ENGINEER Work Phone: [facility] Start: 12-17-2021 Refill Irene Han HEAT READER.SEWAGE DISPOSAL ENGINEER Work Phone: [facility] Palliative Medicine Comment on above: Refill Request Start: 12-11-2021 Refill Cyn Hernandez MD Work Phone: Hematology Comment on above: Refill Request Start: 12-07-2021 End: 12-07-2021 Patient encounter procedure Nova Leija HEAT READER.SEWAGE DISPOSAL ENGINEER Work Phone: Dermatology [place] Comment on above: Acne vulgaris (Prima ry Dx) Start: 12-06-2021 End: 12-06-2021 ambulatory Treatment 5 Delfino Rej Work Phone: Hematology Comment on above: 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) Start: 12-04-2021 Refill Cyn Hernandez MD Work Phone: Hematology Comment on above: Refill Request Start: 12-03-2021 Refill Sylvia Mancilla APRN.SEWAGE DISPOSAL ENGINEER Work Phone: Hematology Comment on above: Refill Request Start: 11-15-2021 End: 11-15-2021 ambulatory Cyn Hernandez MD Work Phone: Hematology Comment on above: Nodular sclerosing H odgkin's lymphoma, unspecified body region (HCC) (Primary Dx); History of pulmonary embolism; Chemotherapy-induced neuropathy (HCC); Muscle cramps 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) Start: 11-15-2021 End: 11-15-2021 Patient encounter procedure Cyn Hernandez MD Work Phone: [facility] OR[facility] Start: 11-13-2021 ambulatory Cyn Hernandez MD Work Phone: Hematology Comment on above: PET scan Start: 11-13-2021 Telephone encounter Jeny Zaidi Hematology/Oncology Comment on above: Orders Start: 11-13-2021 End: 11-13-2021 Subsequent hospital visit by physician Arrival Time Radiology Work Phone: Radiology Pet CT Comment on above: Nodular sclerosing H odgkin's lymphoma, unspecified body region (HCC) [C81.10] Start: 11-07-2021 Refill Cyn Hernandez MD Work Phone: Hematology Comment on above: Refill Request Start: 10-31-2021 Refill Irene Han APRN.SEWAGE DISPOSAL ENGINEER Work Phone: [facility] Palliative Medicine Comment on above: Refill Request Start: 10-26-2021 End: 10-26-2021 Patient encounter procedure Irene Han APRN.SEWAGE DISPOSAL ENGINEER Work Phone: [facility] Palliative Medicine Comment on above: Encounter [...] End: 10-25-2021 Patient encounter procedure Sylvia Mancilla APRN.SEWAGE DISPOSAL ENGINEER Work Phone: JANAE ORTI[facility] Start: 10-17-2021 ambulatory Cyn Hernandez MD Work Phone: Hematology Comment on above: Insurance Start: 10-16-2021 Refill Cheryl velázquez APRN.SEWAGE DISPOSAL ENGINEER Work Phone: [facility] Palliative Medicine Comment on above: Refill Request Start: 10-04-2021 Refill Cyn Hernandez MD Work Phone: Hematology Comment on above: Refill Request Start: 10-02-2021 Orders Only Cyn Hernandez MD Work Phone: Hematology/Oncology Comment on above: Nodular sclerosing H odgkin's lymphoma, unspecified body region (HCC) (Primary Dx) Start: 10-02-2021 Refill Joanne Jade PA-C Work Phone: Pulmonary Medicine Comment on above: Refill Request Start: 09-22-2021 ambulatory Cyn Hernandez MD Work Phone: [facility]NA[facility] Start: 09-22-2021 Patient encounter procedure Cyn Hernandez MD Work Phone: Hematology Comment on above: Appointment Start: 09-22-2021 Telephone encounter Caro Srinivasan RN Hematology Comment on above: Airport Manager - E D Follow Up Start: 09-11-2021 Refill Cyn Hernandez MD Work Phone: Hematology Comment on above: Refill Request Start: 09-06-2021 End: 09-06-2021 ambulatory Treatment 3 Delfino Rej Work Phone: Hematology Comment on above: 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) Start: 09-05-2021 End: 09-05-2021 Patient encounter procedure Nova Leija APRN.SEWAGE DISPOSAL ENGINEER Work Phone: Dermatology [place] Comment on above: Hidradenitis suppura tiva (Primary Dx); Painful skin lesion; Dermatofibroma of left knee Start: 09-03-2021 Refill Cyn Hernandez MD Work Phone: Hematology Comment on above: Refill Request Start: 09-02-2021 Refill Gurpreet Beth Work Phone: [facility] Palliative Medicine Comment on above: Refill Request Start: 08-30-2021 Refill Cyn Hernandez MD Work Phone: Hematology Comment on above: Refill Request Start: 08-16-2021 End: 08-16-2021 ambulatory Treatment 6 Delfino Rej Work Phone: Hematology Comment on above: 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) Start: 08-15-2021 End: 08-15-2021 Subsequent hospital visit by physician Arrival Time Radiology Work Phone: Radiology [facility] Comment on above: Hodgkin lymphoma, un specified Hodgkin lymphoma type, unspecified body region (HCC) [C81.90] Start: 08-14-2021 Refill Irene Han APRN.SEWAGE DISPOSAL ENGINEER Work Phone: [facility] Palliative Medicine Comment on above: Refill Request Start: 08-03-2021 Telephone encounter Kristina Pete RN [employer] Comment on above: Care Coordination (P all med referral) Start: 07-31-2021 Orders Only Cyn Hernandez MD Work Phone: Hematology Comment on above: Muscle cramps; Nodular sclerosis classical Hodgkin lymphoma (HCC) Start: 07-30-2021 ambulatory Irene Han HEAT READER.SEWAGE DISPOSAL ENGINEER Work Phone: [facility] Start: 07-30-2021 Patient encounter procedure Irene Han HEAT READER.SEWAGE DISPOSAL ENGINEER Work Phone: [facility] Palliative Medicine Comment on above: Saturday appointmen t Start: 07-28-2021 End: 07-28-2021 Patient encounter procedure Nova Leija HEAT READER.SEWAGE DISPOSAL ENGINEER Work Phone: Dermatology [place] Comment on above: Hidradenitis suppura tiva (Primary Dx); Painful skin lesion Start: 07-26-2021 End: 07-26-2021 ambulatory Treatment 12 Delfino Rej Work Phone: Hematology Comment on above: 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) Start: 07-24-2021 End: 07-24-[address] [facility] Facility: Start: 2021 Refill Cyn Hernandez MD Work Phone: Hematology Comment on above: Refill Request Start: 07-05-2021 End: 07-05-2021 ambulatory Treatment 6 Delfino Rej Work Phone: Hematology Comment on above: 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) Start: 06-30-2021 Refill Jani Carver MD Work Phone: Pulmonary Medicine Comment on above: Refill Request Start: 06-29-2021 Refill Cyn Hernandez MD Work Phone: Hematology Comment on above: Refill Request Start: 06-15-2021 Refill Irene Han APRN.SEWAGE DISPOSAL ENGINEER Work Phone: [facility] Comment on above: Refill Request Start: 06-14-2021 End: 06-14-2021 ambulatory Cyn Hernandez MD Work Phone: Hematology Comment on above: Hodgkin lymphoma, un specified Hodgkin lymphoma type, unspecified body region (HCC) (Primary Dx); 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); Encounter for antineoplastic immunotherapy Start: 06-14-2021 End: 06-14-2021 Patient encounter procedure Cyn Hernandez MD Work Phone: JANAE ORTI[facility] Start: 06-06-2021 Refill Cyn Hernandez MD Work Phone: Hematology Comment on above: Refill Request Start: 06-02-2021 Refill Cyn Hernandez MD Work Phone: Hematology Comment on above: Refill Request Start: 05-19-2021 Telephone encounter Cyn beth MD Work Phone: Hematology Comment on above: Care Coordination (s inus symptoms ) Start: 05-17-2021 End: 05-17-2021 ambulatory Treatment 4 Delfino Rej Work Phone: Hematology Comment on above: 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) Start: 05-17-2021 End: 05-17-2021 Patient encounter procedure Irene Han APRN.SEWAGE DISPOSAL ENGINEER Work Phone: [facility] Palliative Medicine Comment on above: Encounter for pallia tive care (Primary Dx); 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); Cancer related pain; Chemotherapy-induced neuropathy (HCC); Muscle cramps; Anxiety Refill Request Start: 05-17-2021 Refill Sylvia Mancilla HEAT READER.SEWAGE DISPOSAL ENGINEER Work Phone: Hematology Comment on above: Refill Request Start: 05-17-2021 Telephone encounter Zaira DELANEY Work Phone: Hematology Comment on above: 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 Start: 05-16-2021 ambulatory Cyn Hernandez MD Work Phone: JANA[facility] ORTI[facility] Start: 05-16-2021 Patient encounter procedure Cyn Hernandez MD Work Phone: Hematology Comment on above: Appointment 05/17 Start: 02-14-2021 End: 02-14-2021 Subsequent hospital visit by physician Arrival Time Radiology Work Phone: Radiology [facility] Comment on above: Hodgkin lymphoma, un specified Hodgkin lymphoma type, unspecified body region (HCC) [C81.90] Start: 02-02-2021 End: 02-02-2021 ambulatory Kylie Johnson Other [employer] Other Start: 02-02-2021 Office outpatient vi sit 15 minutes Kylie Johnson [facility] Start: 09-07-2014 End: 12-26-2015 Patient encounter status Irene Han SEWAGE DISPOSAL ENGINEER Work Phone: [facility] Procedures Date Procedure Procedure Detail Performing Clinician Start: 05-29-2024 Radiologic exam ches t 2 views 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 APRN.SEWAGE DISPOSAL ENGINEER Work Phone: Start: 05-29-2024 XR CHEST 2V FRONTAL/LAT Generic External Data Provider Start: 05-04-2024 Radiologic exam ches t 2 views Ruperto Ledezam MD Work Phone: Start: 05-04-2024 XR CHEST 2V FRONTAL/LAT Generic External Data Provider Start: 05-04-2024 [facility] CBC W AUTO DIFF BLD Generic External Data Provider Start: 03-13-2024 [facility] CBC PNL BLD AUTO Ge neric External Data Provider Start: 01-15-2024 Pulmonary ventilatio n & perfusion imaging [facility] WIRE MILL OPERATOR Work Phone: Start: 01-15-2024 Pulmonary stress testing 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 APRN.SEWAGE DISPOSAL ENGINEER Work Phone: Start: 01-15-2024 Noninvasive ear/puls e oximetry multiple deter 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 APRN.SEWAGE DISPOSAL ENGINEER Work Phone: Start: 01-15-2024 [facility] ARTERIAL BLOOD GASES Generic External Data Provider Start: 01-15-2024 Co diffusing capacity S keyona Miller APRN.SEWAGE DISPOSAL ENGINEER Work Phone: Start: 01-06-2024 [facility] NT-PROBNP SERPL-MCNC Generic External Data Provider Start: 12-20-2023 [facility] BACTERIA BAL AER OBE CULT Generic External Data Provider Start: 12-11-2023 Gluc bld gluc mntr d ev cleared fda spec home use [facility] Provider Start: 11-21-2023 Radiologic exam ches t 2 views 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 HEAT READER.SEWAGE DISPOSAL ENGINEER Work Phone: Start: 11-20-2023 PNEUMOCOCCAL AB (23 SEROTYPE) Gabrielle Zavala MD Work Phone: Start: 11-20-2023 T cells absolute cd4 count Gabrielle Zavala MD Work Phone: Start: 11-11-2023 [facility] CBC W AUTO DIFF BLD Generic External Data Provider Start: 10-15-2023 Noninvasive ear/puls e oximetry multiple deter Carole Ruano HEAT READER.SEWAGE DISPOSAL ENGINEER Work Phone: Start: 10-09-2023 Radiologic examinati on sacroiliac jnts <3 views Simin Brandt MD Work Phone: Start: 08-27-2023 Injection 1 tendon sheath/ligament aponeurosis Sherly SCRUGGSC Work Phone: Start: 07-19-2023 Radiologic exam esop hagus single contrast study Anil Franco PA-C Work Phone: Start: 07-10-2023 Radiologic exam swal low function contrast study Anil Franco PA-C Work Phone: Start: 05-31-2023 Radiologic exam ches t 2 views Zoila Aguirre HEAT READER.SEWAGE DISPOSAL ENGINEER Work Phone: Start: 05-20-[address] atten uation skull base mid-thigh Cyn Hernandez MD Work Phone: Start: 05-20-2023 Gluc bld gluc mntr d ev cleared fda spec home use [facility] Provider Start: 03-28-2023 Nitric oxide gas determination Don Chan HEAT READER.SEWAGE DISPOSAL ENGINEER Work Phone: Start: 03-28-2023 Co diffusing capacity L atoya Sukhwinder HEAT READER.SEWAGE DISPOSAL ENGINEER Work Phone: Start: 01-28-[address] atten uation skull base mid-thigh Ruperto Ledezma MD Work Phone: Start: 01-28-2023 End: 01-28-2023 Blood count complete auto&auto difrntl wbc Cyn Hernandez MD Work Phone: Start: 08-14-[address] atten uation skull base mid-thigh Cyn Hernandez MD Work Phone: Start: 08-14-2022 Gluc bld gluc mntr d ev cleared fda spec home use [facility] Provider Start: 05-31-2022 Ct thorax w/o contra st material Cyn Hernandez MD Work Phone: Start: 02-26-[address] atten uation skull base mid-thigh Cyn Hernandez MD Work Phone: Start: 02-26-2022 Gluc bld gluc mntr d ev cleared fda spec home use [facility] Provider Start: 11-13-[address] atten uation skull base mid-thigh Cyn Hernandez MD Work Phone: Start: 11-13-2021 End: 11-13-2021 Comprehensive metabolic panel Cyn Hernandez MD Work Phone: Start: 10-25-2021 Adult depression scr eening assessment Treatment Rej Work Phone: Start: 08-15-[address] atten uation skull base mid-thigh Cyn Hernandez MD Work Phone: Start: 08-15-2021 Blood count complete auto&auto difrntl wbc Cyn Hernandez MD Work Phone: Start: 06-14-2021 Adult depression scr eening assessment Cyn Hernandez MD Work Phone: Start: 03-08-2021 Adult depression scr eening assessment Sylvia Mancilla HEAT READER.SEWAGE DISPOSAL ENGINEER Work Phone: Start: 02-14-[address] atten uation skull base mid-thigh Sylvia Charo HEAT READER.SEWAGE DISPOSAL ENGINEER Work Phone: Start: 02-14-2021 Gluc bld gluc mntr d ev cleared fda spec home use [facility] Provider Start: 10-17-2018 Mammography Ellynkishore novak UNPAID INTERN Work Phone: Start: 10-21-2017 Microscopic observat ion [Identifier] in Cervix by Cyto stain Sheila Lin UNPAID INTERN Work Phone: Plan of Treatment Date Care Activity Detail Author Start: 12-03-2033 Urine microalbumin profile DTaP,Tdap,Td Vaccine (6 - Td or Tdap) [facility] Start: 12-03-2028 Pneumococcal vaccination [facility] Start: 09-10-2024 End: 09-10-2024 Patient encounter procedure 09/10/2024 9:30 AM EDT Office Visit [facility] [address] [place] [address] Sheila Lin NP [address] [place] [address] [facility] Start: 08-25-2024 Medicare Annual Wellness (AWV) Medicare Annual Wellness (AWV) [facility] Start: 08-03-2024 End: 08-03-2024 Follow-up encounter 08/03/2024 10:00 AM EDT Visit (SP) Office Hematology/Oncology [address] [place] [address] Ruperto Ledezma MD [address] [place] [address] [place] [address] 3 month follow up Hematology/Oncology Comment on above: 3 month follow up Start: 08-03-2024 End: 08-03-2024 Patient encounter procedure 08/03/2024 9:45 AM EDT Office Visit [facility] [address] [place] [address] 3 month follow up [facility] Comment on above: 3 month follow up Start: 07-30-2024 End: 07-30-2024 Patient encounter procedure 07/30/2024 10:00 AM EDT Office Visit Palliative Medicine [address] [place] [address] Irene Han, HEAT READER.SEWAGE DISPOSAL ENGINEER [address] [place] [address] Return in about 3 months (around 07/24/2024). Palliative Medicine Comment on above: Return in about 3 months (around ). Start: 07-29-2024 End: 07-29-2024 Follow-up encounter 07/29/2024 1:30 PM EDT [facility] Pulmonary Medicine [address] [place] [place] [address] 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, LORY.SEWAGE DISPOSAL ENGINEER [address] [facility] [place] [address] follow up with SARAH Pulmonary Medicine Comment on above: follow up with SARAH Start: 06-08-2024 End: 08-08-2025 MG Breast - bilateral Screening Bilateral screening mammogram Imaging Routine Screening mammogram for breast cancer Expected: 06/08/2024, Expires: 08/08/2025 [facility] Work Phone: Comment on above: Expected: 06/08/2024, Expires: Start: 06-08-2024 End: 06-08-2024 Patient encounter procedure 06/08/2024 8:00 AM EDT Office Visit [facility] [address] [place] [address] Sheila Lin, UNPAID INTERN [address] [facility] [place] [address] [facility] Start: 05-29-2024 End: 05-29-2024 Patient encounter procedure 05/29/2024 8:30 AM EDT Appointment Radiology [address] [place] [address] [place] [address] Chest Xray Radiology Comment on above: Chest Xray Start: 05-15-2024 End: 05-15-2024 Patient encounter procedure 05/15/2024 9:15 PM EDT Office Visit Neurology [address] [place], [place] [id number] Pulmonary hypertension (HCC) [I27.20] Neurology Comment on above: Pulmonary hypertension (HCC) [I27.20] Start: 05-12-2024 End: 05-12-2024 ambulatory 05/12/2024 8:30 AM EDT [facility] Pulmonary Medicine [address] [address] 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, HEAT READER.SEWAGE DISPOSAL ENGINEER [address] [place] [address] VV with Kylie SINGH Pulmonary Medicine Comment on above: VV with Kylie SINGH Start: 05-04-2024 End: 05-04-2024 Follow-up encounter 05/04/2024 10:00 AM EDT Visit (SP) Office Hematology/Oncology [address] [place] [address] Ruperto Ledezma MD [address] [place] [address] 6 christiane h follow up after pet scan and lab Hematology/Oncology Comment on above: 6 christiane h follow up after pet scan and la b Start: 04-29-2024 End: 04-29-2024 Patient encounter procedure 04/29/2024 1:00 PM EDT Office Visit Pulmonary Medicine [address] [place], [place] [id number] Pulmonary Hypertension: Please make arrangements for the following patient to have an iCPET with Dr. Lopez on 04/29 at 1pm. Pulmonary Medicine Comment on above: Pulmonary Hypertension: Please make arra ngements for the following patient to have an iCPET with Dr. Lopez on 04/29 at 1pm. 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) Expected: 04/27/2024 (Approximate), Expires: 05/06/2025 [facility] Work Phone: Comment on above: Expected: 04/27/2024 (Approximate), Expi res: 05/06/2025 Start: 04-27-2024 End: 04-27-2024 Patient encounter procedure Radiology Pet CT Comment on above: Pet scan Start: 04-23-2024 End: 04-23-2024 Patient encounter procedure 04/23/2024 2:00 PM EST Office Visit Palliative Medicine [address] [place] [address] Irene Han, HEAT READER.SEWAGE DISPOSAL ENGINEER [address] [place] [address] FUP in 8 weeks Palliative Medicine Comment on above: FUP in 8 weeks Start: 04-08-2024 End: 04-08-2024 Patient encounter procedure [facility] Comment on above: Arrived Start: 03-20-2024 End: 03-20-2024 Patient encounter procedure 03/20/2024 9:15 PM EST Office Visit Neurology [address] [place] [address] Pulmonary hypertension (HCC) [I27.20] Neurology Comment on above: Pulmonary hypertension (HCC) [I27.20] Start: 03-13-2024 End: 03-13-2024 Admission to same day surgery center 03/13/2024 8:30 AM EST - 03/13/2024 10:00 AM EST Surgery [facility] [address] [place] [address] [place] [address] [place] [address] RIGHT HEART CATHETERIZATION INCLUDING MEASUREMENT OF OXYGEN SATURATION AND CARDIAC OUTPUT [facility] Comment on above: RIGHT HEART CATHETERIZATION INCLUDING ME ASUREMENT OF OXYGEN SATURATION AND CARDIAC OUTPUT Start: 03-13-2024 Subsequent hospital visit by physician 03/13/2024 8:30 AM EST Hospital Encounter [facility] [address] [place] [address] [place] [address] [place] [address] Pulmonary HTN (HCC) [I27.20] [facility] Comment on above: Pulmonary HTN (HCC) [I27.20] Start: 03-13-2024 End: 03-13-2024 Right heart cath o2 saturation & cardiac output [facility] Start: 03-11-2024 Urine microalbumin profile [facility] Start: 03-11-2024 End: 03-11-2024 Patient encounter procedure 03/11/2024 8:00 AM EST Office Visit [facility] [address] [place] [address] Sheila Lin NP [address] [facility] [place] [address] [facility] Start: 03-02-2024 End: 03-02-2024 ambulatory 03/02/2024 4:00 PM EST [facility] [address] [place] [address] Katarzyna Orosco, HEAT READER.SEWAGE DISPOSAL ENGINEER [address] [place] [address] VV with [facility] Comment on above: VV with Katarzyna Start: 03-02-2024 End: 03-02-2024 Patient encounter procedure 03/02/2024 10:00 AM EST Office Visit [facility] [address] [place] [id number] Sheila Lin NP [address] [facility] [place] [address] [facility] Start: 02-27-2024 End: 02-27-2024 Follow-up encounter 02/27/2024 2:30 PM EST [facility] [address] [address] Irene Han, HEAT READER.SEWAGE DISPOSAL ENGINEER [address] [facility] [place] [id number] schedule virtual follow up with me in about 2 months Palliative Medicine Comment on above: schedule virtual follow up with me in ab out 2 months Start: 02-27-2024 End: 02-27-2024 Patient encounter procedure 02/27/2024 2:30 PM EST Office Visit Palliative Medicine [address] [place] [address] Irene Han, HEAT READER.SEWAGE DISPOSAL ENGINEER [address] [place] [address] schedule virtual follow up with me in about 2 months Palliative Medicine Comment on above: schedule virtual follow up with me in ab out 2 months Start: 02-24-2024 End: 02-24-2024 Follow-up encounter 02/24/2024 3:00 PM EST Visit (SP) Office Hematology/Oncology [address] [place] [address] Ruperto Ledezma MD [address] [place] [address] 3 Month Lab Follow Up Hematology/Oncology Comment on above: 3 Month Lab Follow Up Start: 02-24-2024 End: 02-24-2024 Patient encounter procedure 02/24/2024 2:45 PM EST Office Visit [facility] [address] [place] [address] [place] [address] 3 Month Follow Up Labs [facility] Comment on above: 3 Month Follow Up Labs Start: 02-20-2024 End: 02-19-2025 Diphtheria / Tetanus Antibody Panel Diphtheria / Tetanus Antibody Panel Lab Routine Recurrent sinus infections Expected: 02/20/2024 (Approximate), Expires: 02/19/2025 [facility] Comment on above: Expected: 02/20/2024 (Approximate), Expi res: 02/19/2025 Start: 02-20-2024 End: 02-19-2025 Strep pneumoniae antibody serotypes Strep pneumoniae antibody serotypes Lab Routine Pneumonia of right upper lobe due to Streptococcus pneumoniae (CMS/HCC) Expected: 02/20/2024 (Approximate), Expires: 02/19/2025 [facility] Work Phone: Comment on above: Expected: 02/20/2024 (Approximate), Expi res: 02/19/2025 Start: 02-11-2024 End: 02-11-2024 Patient encounter procedure 02/11/2024 9:00 AM EST [facility] [address] [place] [address] [place] [address] [place] [address] Return in about 2 weeks (around 01/17/2024). Cardiology Comment on above: Return in about 2 weeks (around 01/17/20). Start: 02-10-2024 End: 02-10-2024 ambulatory 02/10/2024 3:00 PM EST Visit (SP) Office Hematology/Oncology [address] [place] [address] [place] [address] Ruperto Ledezma MD [address] [place] [address] [place] [address] 12/18-L/M For Pt To Call Our Office Back Need To R/S This Appt BRM Will Not Be In The Office Hematology/Oncology Comment on above: 12/18-L/M For Pt To Call Our Office Back Need To R/S This Appt BRM Will Not Be In The Office Start: 02-10-2024 End: 02-10-2024 Follow-up encounter 02/10/2024 3:00 PM EST Visit (SP) Office Hematology/Oncology [address] [place] [address] [place] [address] Ruperto Ledezma MD [address] [place] [address] [place] [address] 3 month follow up with lab Hematology/Oncology Comment on above: 3 month follow up with lab Start: 02-10-2024 End: 02-10-2024 Patient encounter procedure [facility] Comment on above: LABS 12/18-L/M For Pt To Call Our Office Back Need To R/S This Appt BRM Will Not Be In The Office Start: 02-10-2024 End: 05-11-2024 CBC W Auto Differential panel - Blood COMPLETE BLOOD COUNT AND DIFFERENTIAL Lab Routine 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) Other pulmonary embolism without acute cor pulmonale, unspecified chronicity (HCC) Chemotherapy-induced neuropathy (HCC) Expected: 02/10/2024, Expires: 05/11/2024 [facility] Comment on above: Expected: 02/10/2024, Expires: Start: 02-10-2024 End: 05-11-2024 Comprehensive metabolic 2000 panel - Serum or Plasma COMPREHENSIVE METABOLIC PANEL Lab Routine 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) Other pulmonary embolism without acute cor pulmonale, unspecified chronicity (HCC) Chemotherapy-induced neuropathy (HCC) Expected: 02/10/2024, Expires: 05/11/2024 [facility] Comment on above: Expected: 02/10/2024, Expires: Start: 02-05-2024 End: 02-05-2024 Patient encounter procedure [facility] Comment on above: echo Start: 01-23-2024 Influenza vaccination Influenza Vaccine (#1) [facility] Comment on above: Postponed from 10/20/2023 (Patient Refus ed) Start: 01-21-2024 End: 01-21-2024 Patient encounter procedure 01/21/2024 1:30 PM EST Office Visit Pulmonology [facility] [address] [place] [address] [place] [address] [place] [address] Pulmonary hypertension (HCC) [I27.20] Pulmonology [facility] Comment on above: Pulmonary hypertension (HCC) [I27.20] Start: 01-15-2024 End: 01-15-2024 Patient encounter procedure Pulmonary Medicine Comment on above: Acute hypoxic respiratory failure (HCC) [J96.01] Weight 220 / Order i n EPIC // DX: 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 Start: 01-14-2024 End: 01-14-2024 Patient encounter procedure 01/14/2024 8:30 AM EST Office Visit Pulmonary Medicine [address] [facility] [address] 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 APRN.SEWAGE DISPOSAL ENGINEER [address] [facility] [place] [place] [address] 5 weeks Pulmonary Medicine Comment on above: 5 weeks Start: 01-08-2024 End: 01-08-2024 Patient encounter procedure 01/08/2024 8:00 AM EST Office Visit Cardiology [address] [facility] [place] [address] Leta, Table Runner [facility] [address] [facility] [place] [address] echo Cardiology Comment on above: echo Start: 01-06-2024 End: 01-05-2025 ARTERIAL BLOOD GASES ARTERIAL BLOOD GASES Lab Routine Hypoxia Expected: 01/06/2024, Expires: 01/05/2025 [facility] Work Phone: Comment on above: Expected: 01/06/2024, Expires: Start: 01-06-2024 End: 01-06-2024 Patient encounter procedure 01/06/2024 2:00 PM EST Office Visit Pulmonary Medicine [address] [place] [address] [place] [address] [place] [address] Carver 01/05 at 2pm Pulmonary Medicine Comment on above: add on Per dr Carver 01/05 at 2pm Start: 01-03-2024 End: 01-03-2024 Patient encounter procedure Cardiology Comment on above: Pleural effusion, left [J90]; Pulmonary hypertension (HCC) [I27.20] Pleural effusion, le ft [J90] Start: 12-27-2023 End: 12-27-2023 Patient encounter procedure 12/27/2023 7:45 AM EST Appointment Radiology Pet CT [address] [place] [address] [place] [address] CT CHEST WO IVCON Radiology Pet CT Comment on above: CT CHEST WO IVCON Start: 12-26-2023 End: 12-26-2023 Follow-up encounter 12/26/2023 2:00 PM EST [facility] Palliative Medicine [address] [place] [address] Irene Han, HEAT READER.SEWAGE DISPOSAL ENGINEER [address] [place] [address] Follow Up Palliative Medicine Comment on above: Follow Up Start: 12-26-2023 End: 12-26-2023 Patient encounter procedure Radiology Comment on above: Pneumonia due to infectious organism, un specified laterality, unspecified part of lung [J18.9] chronic pain/discuss injections Start: 12-23-2023 End: 12-23-2023 ambulatory 12/23/2023 2:30 PM EST [facility] Palliative Medicine [address] [place] [address] Irene Han, HEAT READER.SEWAGE DISPOSAL ENGINEER [address] [place] [address] VV in apprx. 4 weeks. 12/22 okay per L.T. Palliative Medicine Comment on above: VV in apprx. 4 weeks. 12/22 okay per L.T. Start: 12-18-2023 End: 12-18-2023 Patient encounter procedure 12/18/2023 9:40 AM EDT Office Visit [facility] [address] [id number] Gabrielle Zavala MD [address] [address] [facility] Start: 12-17-2023 End: 12-17-2023 Patient encounter procedure 12/17/2023 8:30 AM EDT Office Visit Pulmonary Medicine [address] [place] [address] 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, HEAT READER.SEWAGE DISPOSAL ENGINEER [address] [place] [address] Follow up Pulmonary Medicine Comment on above: Follow up Start: 12-11-2023 End: 12-11-2023 Patient encounter procedure 12/11/2023 12:00 PM EDT Appointment Radiology Pet CT [address] [place] [address] [place] [address] PET [address] Pet CT Comment on above: PET scan Start: 12-04-2023 End: 12-03-2024 Diphtheria / Tetanus Antibody Panel Diphtheria / Tetanus Antibody Panel Lab Routine Recurrent sinus infections Expected: 12/04/2023 (Approximate), Expires: 12/03/2024 [facility] Comment on above: Expected: 12/04/2023 (Approximate), Expi res: 12/03/2024 Start: 12-04-2023 End: 12-03-2024 Protein electrophoresis, serum Protein electrophoresis, serum Lab Routine Recurrent sinus infections Expected: 12/04/2023 (Approximate), Expires: 12/03/2024 [facility] Work Phone: Comment on above: Expected: 12/04/2023 (Approximate), Expi res: 12/03/2024 Start: 12-04-2023 End: 12-03-2024 Strep pneumoniae antibody serotypes Strep pneumoniae antibody serotypes Lab Routine Recurrent sinus infections Expected: 12/04/2023 (Approximate), Expires: 12/03/2024 [facility] Comment on above: Expected: 12/04/2023 (Approximate), Expi res: 12/03/2024 Start: 12-04-2023 End: 12-04-2023 Patient encounter procedure 12/04/2023 9:20 AM EDT Office Visit [facility] [address] [facility] [address] [place] [phone] Gabrielle Zavala MD [address] [address] Arrived [facility] Comment on above: Arrived Start: 11-28-2023 End: 11-27-2024 CT Head WO contrast CT head wo IV contrast Imaging Routine Daily headache Expected: 11/28/2023, Expires: 11/27/2024 [facility] Work Phone: Comment on above: Expected: 11/28/2023, Expires: Start: 11-28-2023 End: 11-05-2024 XR Chest 2 Views XR chest 2 views Imaging Routine Pneumonia due to infectious organism, unspecified laterality, unspecified part of lung Acute respiratory failure, unspecified whether with hypoxia or hypercapnia (CMS/HCC) Restrictive lung disease Expected: 11/28/2023, Expires: 11/05/2024 [facility] Work Phone: Comment on above: Expected: 11/28/2023, Expires: Start: 11-28-2023 End: 11-28-2023 Patient encounter procedure 11/28/2023 10:30 AM EDT Office Visit Pain Management [address] [place] [address] Kodi Pantoja MD [address] [facility] [place] [address] chronic pain/discuss injections Pain Management Comment on above: chronic pain/discuss injections Start: 11-28-2023 End: 11-28-2023 Patient encounter procedure [facility] Start: 11-21-2023 End: 11-21-2023 Patient encounter procedure 11/21/2023 8:30 AM EDT Office Visit Pulmonary Medicine [address] [place] [address] 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 APRN.SEWAGE DISPOSAL ENGINEER [address] [facility] [place] [address] pneumonia Pulmonary Medicine Comment on above: pneumonia Start: 11-20-2023 End: 11-19-2024 Absolute CD4 count procedure T-helper cells (CD4) count Lab Routine Pneumonia of right upper lobe due to Streptococcus pneumoniae (CMS/HCC) Recurrent sinus infections Expected: 11/20/2023 (Approximate), Expires: 11/19/2024 [facility] Comment on above: Expected: 11/20/2023 (Approximate), Expi res: 11/19/2024 Start: 11-20-2023 End: 11-19-2024 CBC W Auto Differential panel - Blood CBC and differential Lab Routine Pneumonia of right upper lobe due to Streptococcus pneumoniae (CMS/HCC) Recurrent sinus infections Expected: 11/20/2023 (Approximate), Expires: 11/19/2024 [facility] Comment on above: Expected: 11/20/2023 (Approximate), Expi res: 11/19/2024 Start: 11-20-2023 End: 11-19-2024 Diphtheria / Tetanus Antibody Panel Diphtheria / Tetanus Antibody Panel Lab Routine Pneumonia of right upper lobe due to Streptococcus pneumoniae (CMS/HCC) Recurrent sinus infections Expected: 11/20/2023 (Approximate), Expires: 11/19/2024 [facility] Comment on above: Expected: 11/20/2023 (Approximate), Expi res: 11/19/2024 Start: 11-20-2023 End: 11-19-2024 HIV-1/HIV-2 antigen/antibody combination immunoassay HIV-1 and HIV-2 antibodies Lab Routine Pneumonia of right upper lobe due to Streptococcus pneumoniae (CMS/HCC) Recurrent sinus infections Expected: 11/20/2023 (Approximate), Expires: 11/19/2024 [facility] Comment on above: Expected: 11/20/2023 (Approximate), Expi res: 11/19/2024 Start: 11-20-2023 End: 11-19-2024 IgA [Mass/volume] in Serum or Plasma IgA Lab Routine Pneumonia of right upper lobe due to Streptococcus pneumoniae (CMS/HCC) Recurrent sinus infections Expected: 11/20/2023 (Approximate), Expires: 11/19/2024 [facility] Comment on above: Expected: 11/20/2023 (Approximate), Expi res: 11/19/2024 Start: 11-20-2023 End: 11-19-2024 IgE [Units/volume] in Serum or Plasma IgE Lab Routine Pneumonia of right upper lobe due to Streptococcus pneumoniae (CMS/HCC) Recurrent sinus infections Expected: 11/20/2023 (Approximate), Expires: 11/19/2024 [facility] Comment on above: Expected: 11/20/2023 (Approximate), Expi res: 11/19/2024 Start: 11-20-2023 End: 11-19-2024 IgG [Mass/volume] in Serum or Plasma IgG Lab Routine Pneumonia of right upper lobe due to Streptococcus pneumoniae (CMS/HCC) Recurrent sinus infections Expected: 11/20/2023 (Approximate), Expires: 11/19/2024 [facility] Work Phone: Comment on above: Expected: 11/20/2023 (Approximate), Expi res: 11/19/2024 Start: 11-20-2023 End: 11-19-2024 IgM [Mass/volume] in Serum or Plasma IgM Lab Routine Pneumonia of right upper lobe due to Streptococcus pneumoniae (CMS/HCC) Recurrent sinus infections Expected: 11/20/2023 (Approximate), Expires: 11/19/2024 [facility] Comment on above: Expected: 11/20/2023 (Approximate), Expi res: 11/19/2024 Start: 11-20-2023 End: 11-19-2024 LYMPHOCYTE ANTIGEN AND MITOGEN PROLIFERATION PANEL LYMPHOCYTE ANTIGEN AND MITOGEN PROLIFERATION PANEL Lab Routine Pneumonia of right upper lobe due to Streptococcus pneumoniae (CMS/HCC) Recurrent sinus infections Expected: 11/20/2023 (Approximate), Expires: 11/19/2024 [facility] Comment on above: Expected: 11/20/2023 (Approximate), Expi res: 11/19/2024 Start: 11-20-2023 End: 11-19-2024 MANNOSE BINDING LECTIN MANNOSE BINDING LECTIN Lab Routine Pneumonia of right upper lobe due to Streptococcus pneumoniae (CMS/HCC) Recurrent sinus infections Expected: 11/20/2023 (Approximate), Expires: 11/19/2024 [facility] Comment on above: Expected: 11/20/2023 (Approximate), Expi res: 11/19/2024 Start: 11-20-2023 End: 11-19-2024 Tetanus toxoid, IgG Tetanus toxoid, IgG Lab Routine Pneumonia of right upper lobe due to Streptococcus pneumoniae (CMS/HCC) Recurrent sinus infections Expected: 11/20/2023 (Approximate), Expires: 11/19/2024 [facility] Comment on above: Expected: 11/20/2023 (Approximate), Expi res: 11/19/2024 Start: 11-20-2023 End: 11-20-2023 Patient encounter procedure [facility] Comment on above: Arrived Start: 11-14-2023 End: 11-14-2023 ambulatory Palliative Medicine Comment on above: FU in 4 weeks VV Start: 11-11-2023 End: 11-11-2023 Follow-up encounter Hematology/Oncology Comment on above: 3 month follow up with lab Start: 11-11-2023 End: 11-11-2023 Patient encounter procedure [facility] Comment on above: 3 month follow up with lab LABS Start: 11-06-2023 End: 11-06-2023 Patient encounter procedure [facility] Comment on above: Pneumonia due to infectious organism, un specified laterality, unspecified part of lung (Primary Dx); Acute respiratory failure, unspecified whether with hypoxia or hypercapnia (CMS/HCC); Restrictive lung disease Start: 10-31-2023 End: 10-31-2023 Patient encounter procedure 10/31/2023 9:00 AM EDT Office Visit Pain Management [address] [facility] [place] [address] Katarzyna Orosco, HEAT READER.SEWAGE DISPOSAL ENGINEER [address] [place] [address] Chronic pain Pain Management Comment on above: Chronic pain Start: 10-28-2023 End: 10-28-2023 Patient encounter procedure [facility] Radiology Ultrasound Comment on above: Pleural effusion, left [J90] Pleural effusion, le ft [J90]; Pulmonary hypertension (HCC) [I27.20] Start: 10-20-2023 Influenza vaccination [facility] Start: 10-17-2023 End: 10-17-2023 Patient encounter procedure 10/17/2023 10:00 AM EDT Office Visit Palliative Medicine [address] [place] [address] Irene Han, HEAT READER.SEWAGE DISPOSAL ENGINEER [address] [place] [address] schedule in office with me in about 4 weeks Palliative Medicine Comment on above: schedule in office with me in about 4 we eks Start: 10-15-2023 End: 10-15-2023 Patient encounter procedure 10/15/2023 10:15 AM EDT Procedure Pulmonary Medicine [address] [place] [address] Pulmonary hypertension (HCC) [I27.20] Pulmonary Medicine Comment on above: Pulmonary hypertension (HCC) [I27.20] Start: 10-09-2023 End: 10-09-2023 Patient encounter procedure 10/09/2023 11:00 AM EDT Office Visit Rheumatology [address] [place] [address] Simin Brandt MD [address] [place] [address] Psoriatic arthritis (HCC) [L40.50] Rheumatology Comment on above: Psoriatic arthritis (HCC) [L40.50] Start: 10-08-2023 End: 10-08-2023 ambulatory 10/08/2023 12:00 PM EDT OT/PT/Speech Visit [facility] [address] [place] [address] Jeny Rahman [facility]-RN DOCUMENTATION SPECIALIST [address] [place] [address] Hoarseness [R49.0] [facility] Comment on above: Hoarseness [R49.0] Start: 10-08-2023 End: 10-08-2023 Patient encounter procedure 10/08/2023 8:00 AM EDT Office Visit Rheumatology [address] [place] [address] Simin Brandt MD [address] [place] [address] Psoriatic arthritis (HCC) [L40.50] Rheumatology Comment on above: Psoriatic arthritis (HCC) [L40.50] Start: 10-03-2023 End: 10-03-2023 Patient encounter procedure 10/03/2023 10:00 AM EDT Appointment [facility] Radiology Gastrointestinal [address] [place] [address] XR ESOPHAGRAM [facility] Radiology Gastrointestinal Comment on above: XR ESOPHAGRAM Start: 09-26-2023 End: 09-26-2023 Patient encounter procedure Pulmonary Medicine Comment on above: Return in about 6 months (around ). Pulmonary hypertensi on (HCC) [I27.20] Start: 09-23-2023 End: 09-23-2023 Patient encounter procedure 09/23/2023 11:30 AM EDT Office Visit Cardiology [address] [facility] [address] [place] [address] [place] [address] Pleural effusion, left [J90]; Pulmonary hypertension (HCC) [I27.20] Cardiology Comment on above: Pleural effusion, left [J90]; Pulmonary hypertension (HCC) [I27.20] Start: 09-19-2023 End: 09-19-2023 ambulatory 09/19/2023 10:00 AM EDT [facility] Palliative Medicine [address] [place] [address] Irene Han, HEAT READER.SEWAGE DISPOSAL ENGINEER [address] [place] [address] Please schedule in 5 weeks virtually Palliative Medicine Comment on above: Please schedule in 5 weeks virtually Start: 09-18-2023 End: 09-18-2023 Patient encounter procedure 09/18/2023 9:40 AM EDT Office Visit Otolaryngology [address] [place] [address] Anil Franco PA-C [address] [place], [place] [phone] Return for Follow up after MBS, XR esophagram; sooner if clinically indicated.. Otolaryngology Comment on above: Return for Follow up after MBS, XR esoph agram; sooner if clinically indicated.. Start: 09-16-2023 End: 09-16-2023 ambulatory 09/16/2023 2:30 PM EDT [facility] Palliative Medicine [address] [place] [address] Irene Han, HEAT READER.SEWAGE DISPOSAL ENGINEER [address] [facility] [place] [address] Please schedule in 5 weeks virtually Palliative Medicine Comment on above: Please schedule in 5 weeks virtually Start: 08-27-2023 End: 08-27-2023 Patient encounter procedure 08/27/2023 8:00 AM EDT Office Visit Orthopaedics [address] [place], [place] [id number] Sherly Burner PA-C [address] [facility] [place] [address] right wrist pain Orthopaedics Comment on above: right wrist pain Start: 08-18-2023 Influenza vaccination Influenza Vaccine (#1) [facility] Comment on above: Postponed from 10/19/2022 (Patient Refus ed) Start: 08-12-2023 End: 08-12-2023 Patient encounter procedure General Radiology Comment on above: right wrist pain Return in about 4 we eks (around 08/08/2023) for virtual visit . Start: 08-08-2023 End: 08-08-2023 ambulatory 08/08/2023 10:00 AM EDT [facility] Palliative Medicine [address] [place] [address] Irene Han, HEAT READER.SEWAGE DISPOSAL ENGINEER [address] [place], [place] [phone] Return in about 4 weeks (around 08/08/2023) for virtual visit . Palliative Medicine Comment on above: Return in about 4 weeks (around ) for virtual visit . Start: 08-06-2023 End: 08-06-2023 Patient encounter procedure 08/06/2023 7:00 AM EDT Office Visit Pulmonary Medicine [address] [place] [address] Carole Ruano, HEAT READER.SEWAGE DISPOSAL ENGINEER [address] [place] [address] Hospital Follow Up for Pneumonia Pulmonary Medicine Comment on above: Hospital Follow Up for Pneumonia Start: 08-05-2023 End: 08-05-2023 ambulatory 08/05/2023 10:15 AM EDT Visit (SP) Office Hematology/Oncology [address] [place] [address] [place] [address] Ruperto Ledezma MD [address] [place] [address] 8 week lab Hematology/Oncology Comment on above: 8 week lab Start: 08-05-2023 End: 08-05-2023 Patient encounter procedure 08/05/2023 10:00 AM EDT Office Visit [facility] [address] [place] [address] 8 week lab [facility] Comment on above: 8 week lab Start: 07-19-2023 End: 07-19-2023 Patient encounter procedure 07/19/2023 1:20 PM EDT Appointment Radiology [address] [facility] [place] [address] XR ESOPHAGRAM Radiology Comment on above: XR ESOPHAGRAM Start: 07-17-2023 End: 07-17-2023 Patient encounter procedure 07/17/2023 9:40 AM EDT Office Visit Otolaryngology [address] [place] [address] Anil Franco PA-C [address] [place], [place] [phone] Return for Follow up after MBS, XR esophagram; sooner if clinically indicated.. Otolaryngology Comment on above: Return for Follow up after MBS, XR esoph agram; sooner if clinically indicated.. Start: 07-12-2023 End: 07-12-2023 Patient encounter procedure [facility] Radiology Ultrasound Comment on above: Pleural effusion, left [J90] Pleural effusion, le ft [J90]; Pulmonary hypertension (HCC) [I27.20] Start: 2023 End: 2023 Patient encounter procedure 2023 10:00 AM EDT Office Visit Palliative Medicine [address] [place] [address] Irene Han APRN.SEWAGE DISPOSAL ENGINEER [address] [place] [address] Return in about 8 weeks (around 2023). Palliative Medicine Comment on above: Return in about 8 weeks (around ). Start: 07-10-2023 End: 07-10-2023 Patient encounter procedure [facility] Radiology Gastrointestinal Comment on above: Dysphagia, unspecified type [R13.10] Start: 07-04-2023 Medicare Annual Wellness (AWV) Medicare Annual Wellness (AWV) [facility] Start: 06-28-2023 End: 06-28-2023 Patient encounter procedure 06/28/2023 11:00 AM EDT Office Visit Pulmonary Medicine [address] [place] [address] [place] [address] [place], [place] [phone] ok per Dr. Carver Ms. Weller also needs to be added onto Dr. Carver's schedule at [place] on Saturday06/28/23 at 11 am (it is a hospital day for her but adding her on per Dr. Carver). Dr. Carver would also like her put on the cancellation list for a sooner appt. Pulmonary Medicine Comment on above: ok per Dr. Carver Ms. Weller also needs to be added onto Dr. Carver's schedule at [place] on Saturday06/28/23 at 11 am (it is a hospital day for her but adding her on per Dr. Carver). Dr. Carver would also like her put on the cancellation list for a sooner appt. Start: 06-13-2023 End: 06-13-2023 Patient encounter procedure 06/13/2023 11:00 AM EDT Office Visit Pulmonary Medicine [address] [facility] [address] Carole Ruano APRN.SEWAGE DISPOSAL ENGINEER [address] 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) Expected: 04/16/2023, Expires: 07/16/2023 [facility] Work Phone: Comment on above: Expected: 04/16/2023, Expires: Start: 04-16-2023 End: 07-16-2023 Comprehensive metabolic 2000 panel - Serum or Plasma COMP METABOLIC PANEL Lab Routine 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) Expected: 04/16/2023, Expires: 07/16/2023 [facility] Work Phone: Comment on above: Expected: 04/16/2023, Expires: Start: 04-16-2023 End: 07-16-2023 Cortisol [Mass/volume] in Serum or Plasma CORTISOL BLD Lab Routine 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) Expected: 04/16/2023, Expires: 07/16/2023 [facility] Work Phone: Comment on above: Expected: 04/16/2023, Expires: Start: 04-16-2023 End: 07-16-2023 Erythrocyte sedimentation rate SED RATE WESTERGREN Lab Routine 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) Expected: 04/16/2023, Expires: 07/16/2023 [facility] Work Phone: Comment on above: Expected: 04/16/2023, Expires: Start: 02-18-2023 Behavioral Health Screening Behavioral Health Screening [facility] Start: 02-18-2023 Depression Assessment Depression Assessment [facility] Start: 01-29-2023 Bacteria identified in Urine by Culture [facility] Start: 01-28-2023 End: 04-29-2023 Cortisol [Mass/volume] in Serum or Plasma [facility] Work Phone: Comment on above: Expected: 01/28/2023, Expires: 4 Start: 10-25-2022 Adult depression screening assessment DEPRESSION SCREENING [facility] Start: 10-21-2022 Screening for malignant neoplasm of cervix [facility] Start: 10-19-2022 Influenza vaccination [facility] Start: 08-01-2022 End: 10-01-2022 Bacteria identified in Unspecified specimen by Respiratory culture RESP CULTURE + STAIN Microbiology Routine Productive cough Expected: 08/01/2022, Expires: 10/01/2022 [facility] Work Phone: Comment on above: Expected: 08/01/2022, Expires: 3 Start: 2022 Mammography [facility] Start: 2022 Screening for malignant neoplasm of breast [facility] Start: 06-14-2022 Adult depression screening assessment DEPRESSION SCREENING [facility] Start: 04-10-2022 End: 06-10-2022 Comprehensive metabolic 2000 panel - Serum or Plasma COMP METABOLIC PANEL Lab Routine 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) Expected: 04/10/2022, Expires: 06/10/2022 [facility] Work Phone: Comment on above: Expected: 04/10/2022, Expires: 3 Start: 04-10-2022 End: 06-10-2022 Thyrotropin [Units/volume] in Serum or Plasma TSH BLD Lab Routine 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) Expected: 04/10/2022, Expires: 06/10/2022 [facility] Work Phone: Comment on above: Expected: 04/10/2022, Expires: 3 Start: 04-10-2022 End: 06-10-2022 Thyroxine (T4) free [Mass/volume] in Serum or Plasma T4 FREE/FREE THYROX Lab Routine 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) Expected: 04/10/2022, Expires: 06/10/2022 [facility] Work Phone: Comment on above: Expected: 04/10/2022, Expires: 3 Start: 03-08-2022 Adult depression screening assessment DEPRESSION SCREENING [facility] Start: 02-18-2022 DEPRESSION ASSESSMENT DEPRESSION ASSESSMENT [facility] Start: 01-25-2022 End: 03-27-2022 PAIN PANEL, UR QUANT [facility] Work Phone: Comment on above: Expected: 01/25/2022, Expires: 3 Start: 01-18-2022 End: 03-20-2022 Comprehensive metabolic 2000 panel - Serum or Plasma COMP METABOLIC PANEL Lab Routine 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) Expected: 01/18/2022, Expires: 03/20/2022 [facility] Work Phone: Comment on above: Expected: 01/18/2022, Expires: 3 Start: 01-18-2022 End: 03-20-2022 Thyrotropin [Units/volume] in Serum or Plasma TSH BLD Lab Routine 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) Expected: 01/18/2022, Expires: 03/20/2022 [facility] Work Phone: Comment on above: Expected: 01/18/2022, Expires: 3 Start: 01-18-2022 End: 03-20-2022 Thyroxine (T4) free [Mass/volume] in Serum or Plasma T4 FREE/FREE THYROX Lab Routine 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) Expected: 01/18/2022, Expires: 03/20/2022 [facility] Work Phone: Comment on above: Expected: 01/18/2022, Expires: 3 Start: 11-15-2021 End: 01-15-2022 Comprehensive metabolic 2000 panel - Serum or Plasma COMP METABOLIC PANEL Lab Routine 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) Expected: 11/15/2021, Expires: 01/15/2022 [facility] Work Phone: Comment on above: Expected: 11/15/2021, Expires: 2 Start: 11-15-2021 End: 01-15-2022 Thyrotropin [Units/volume] in Serum or Plasma TSH BLD Lab Routine 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) Expected: 11/15/2021, Expires: 01/15/2022 [facility] Work Phone: Comment on above: Expected: 11/15/2021, Expires: 2 Start: 11-15-2021 End: 01-15-2022 Thyroxine (T4) free [Mass/volume] in Serum or Plasma T4 FREE/FREE THYROX Lab Routine 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) Expected: 11/15/2021, Expires: 01/15/2022 [facility] Work Phone: Comment on above: Expected: 11/15/2021, Expires: 2 Start: 10-26-2021 End: 12-26-2021 Comprehensive metabolic 2000 panel - Serum or Plasma COMP METABOLIC PANEL Lab Routine 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) Expected: 10/26/2021, Expires: 12/26/2021 [facility] Work Phone: Comment on above: Expected: 10/26/2021, Expires: 2 Start: 10-26-2021 End: 12-26-2021 Thyrotropin [Units/volume] in Serum or Plasma TSH BLD Lab Routine 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) Expected: 10/26/2021, Expires: 12/26/2021 [facility] Work Phone: Comment on above: Expected: 10/26/2021, Expires: 2 Start: 10-26-2021 End: 12-26-2021 Thyroxine (T4) free [Mass/volume] in Serum or Plasma T4 FREE/FREE THYROX Lab Routine 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) Expected: 10/26/2021, Expires: 12/26/2021 [facility] Work Phone: Comment on above: Expected: 10/26/2021, Expires: 2 Start: 10-19-2021 Influenza vaccination [facility] Start: 09-06-2021 End: 11-06-2021 Comprehensive metabolic 2000 panel - Serum or Plasma COMP METABOLIC PANEL Lab Routine 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) Expected: 09/06/2021, Expires: 11/06/2021 [facility] Work Phone: Comment on above: Expected: 09/06/2021, Expires: 2 Start: 09-06-2021 End: 11-06-2021 Thyrotropin [Units/volume] in Serum or Plasma TSH BLD Lab Routine 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) Expected: 09/06/2021, Expires: 11/06/2021 [facility] Work Phone: Comment on above: Expected: 09/06/2021, Expires: 2 Start: 09-06-2021 End: 11-06-2021 Thyroxine (T4) free [Mass/volume] in Serum or Plasma T4 FREE/FREE THYROX Lab Routine 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 Start: 10-19-2020 Influenza vaccination INFLUENZA (#1) [facility] Start: 09-08-2019 HPV TESTING HPV TESTING [facility] Start: 09-08-2019 Screening for malignant neoplasm of cervix HPV Testing [facility] Start: 10-21-2018 Screening for malignant neoplasm of cervix Cervical Cancer Screening [facility] Start: 10-26-2017 PAP TESTING PAP TESTING [facility] Start: 10-26-2017 Screening for malignant neoplasm of cervix [facility] Start: 06-17-2015 PNEUMOCOCCAL (2 - PPSV23 if available, else PCV20) PNEUMOCOCCAL (2 - PPSV23 if available, else PCV20) [facility] Start: 06-17-2015 PNEUMOCOCCAL (2 - PPSV23 or PCV20) PNEUMOCOCCAL (2 - PPSV23 or PCV20) [facility] Start: 08-11-2014 PNEUMOCOCCAL (2 - PPSV23 if available, else PCV20) PNEUMOCOCCAL (2 - PPSV23 if available, else PCV20) [facility] Start: 08-11-2014 PNEUMOCOCCAL (2 - PPSV23 or PCV20) PNEUMOCOCCAL (2 - PPSV23 or PCV20) [facility] Start: 08-11-2014 Pneumococcal vaccination [facility] Start: 07-12-2003 Screening for malignant neoplasm of cervix Pap Smear [facility] Start: 2001 SHINGRIX VACCINE (1 of 2) SHINGRIX VACCINE (1 of 2) [facility] Start: 2001 TWO PNEUMOVAX 5 YEARS APART PRIOR TO AGE 65 (#1) TWO PNEUMOVAX 5 YEARS APART PRIOR TO AGE 65 (#1) [facility] Start: 2000 Anxiety Screening Anxiety Screening [facility] Start: 2000 Depression Screening Depression Screening [facility] Start: 1994 COVID-19 VACCINE (1) COVID-19 VACCINE (1) [facility] Start: 07-12-1987 COVID-19 VACCINE (#1) COVID-19 VACCINE (#1) [facility] Start: 01-11-1983 COVID-19 VACCINE (#1) COVID-19 VACCINE (#1) [facility] Start: 1982 HPV Vaccine: Recommended Based On Risk HPV Vaccine: Recommended Based On Risk [facility] Bacteria identified in Unspecified specimen by Respiratory culture RESPIRATORY CULTURE AND STAIN Microbiology Routine Bronchitis Restrictive lung disease Ordered: 06/13/2023 [facility] Work Phone: Comment on above: Ordered: 06/13/2023 Bacteria identified in Unspecified specimen by Respiratory culture RESPIRATORY CULTURE AND STAIN Microbiology Routine Pneumonia due to infectious organism, unspecified laterality, unspecified part of lung Ordered: 11/21/2023 [facility] Comment on above: Ordered: 11/21/2023 End: 03-30-2023 CBC W Auto Differential panel - Blood CBC + DIFF Lab Routine 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 Occurrences starting 03/31/2022 until 03/30/2023 [facility] Work Phone: Comment on above: Every other week for 25 Occurrences rafi lilly 03/31/2022 until 03/30/2023 Comprehensive metabo lic 2000 panel - Serum or Plasma COMP METABOLIC PANEL Lab Routine 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) Ordered: 05/17/2021 [facility] Work Phone: Comment on above: Ordered: 05/17/2021 End: 03-30-2023 Comprehensive metabolic 2000 panel - Serum or Plasma COMP METABOLIC PANEL Lab Routine 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 Occurrences starting 03/31/2022 until 03/30/2023 [facility] Work Phone: Comment on above: Every other week for 25 Occurrences star vijaya 03/31/2022 until 03/30/2023 COVID & INFLUENZA A/ B & RSV NAAT, ROUTINE COVID & INFLUENZA A/B & RSV NAAT, ROUTINE Microbiology Routine Wheezing 05/31/2023 3:30 PM EDT [facility] Work Phone: End: 12-20-2024 CT Chest WO contrast CT CHEST WO IVCON Radiology Routine Pneumonia due to infectious organism, unspecified laterality, unspecified part of lung 1 Occurrences starting 11/21/2023 until 12/20/2024 [facility] Work Phone: Comment on above: 1 Occurrences starting 11/21/2023 until 12/20/2024 End: 12-27-2022 Echocardiography ECHO Cardiology Routine Nodular sclerosing Hodgkin's lymphoma, unspecified body region (HCC) BAEZ (dyspnea on exertion) Chronic cough 1 Occurrences starting 12/27/2021 until 12/27/2022 [facility] Work Phone: Comment on above: 1 Occurrences starting 12/27/2021 until 12/27/2022 End: 01-02-2025 Echocardiography ECHO Cardiology Routine Pleural effusion, left Pulmonary hypertension (HCC) Other acute pulmonary embolism, unspecified whether acute cor pulmonale present (HCC) 1 Occurrences starting 01/03/2024 until 01/02/2025 [facility] Work Phone: Comment on above: 1 Occurrences starting 01/03/2024 until 01/02/2025 End: 09-01-2023 LUNG DIFFUSION CAPACITY (DLCO) LUNG DIFFUSION CAPACITY (DLCO) PFT Routine Chronic cough 1 Occurrences starting 08/02/2022 until 09/01/2023 [facility] Work Phone: Comment on above: 1 Occurrences starting 08/02/2022 until 09/01/2023 LUNG DIFFUSION CAPAC ITY (DLCO) LUNG DIFFUSION CAPACITY (DLCO) PFT Routine Chronic cough 03/28/2023 1:39 PM [facility] Work Phone: End: 01-23-2025 LUNG DIFFUSION CAPACITY (DLCO) LUNG DIFFUSION CAPACITY (DLCO) PFT Routine Acute hypoxic respiratory failure (HCC) Bronchiectasis without complication (HCC) Restrictive lung disease 1 Occurrences starting 12/25/2023 until 01/23/2025 [facility] Comment on above: 1 Occurrences starting 12/25/2023 until 01/23/2025 LUNG DIFFUSION CAPAC ITY (DLCO) LUNG DIFFUSION CAPACITY (DLCO) PFT Routine Acute hypoxic respiratory failure (HCC) Bronchiectasis without complication (HCC) Restrictive lung disease 01/15/2024 9:13 AM [facility] Work Phone: Microorganism identi fied in Unspecified specimen by Culture AFB CULT + STAIN Microbiology Routine Pneumonia due to infectious organism, unspecified laterality, unspecified part of lung Ordered: 11/21/2023 [facility] Comment on above: Ordered: 11/21/2023 End: 09-01-2023 NITRIC OXIDE, EXHALED NITRIC OXIDE, EXHALED PFT Routine Bronchitis 1 Occurrences starting 08/02/2022 until 09/01/2023 [facility] Work Phone: Comment on above: 1 Occurrences starting 08/02/2022 until 09/01/2023 End: 02-04-2025 NM Lung Ventilation and Perfusion NM LUNG VENT / PERF VQ Radiology Routine Other secondary pulmonary hypertension (HCC) 1 Occurrences starting 01/06/2024 until 02/04/2025 [facility] Work Phone: Comment on above: 1 Occurrences starting 01/06/2024 until 02/04/2025 End: 07-14-2022 NM PET/CT SKULL-THIGH SUBSEQUENT NM PET/CT SKULL-THIGH SUBSEQUENT Radiology Routine Hodgkin lymphoma, unspecified Hodgkin lymphoma type, unspecified body region (HCC) 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) 1 Occurrences starting 06/14/2021 until 07/14/2022 [facility] Work Phone: Comment on above: 1 Occurrences starting 06/14/2021 until 07/14/2022 End: 12-15-2022 NM PET/CT SKULL-THIGH SUBSEQUENT NM PET/CT SKULL-THIGH SUBSEQUENT Radiology Routine Nodular sclerosing Hodgkin's lymphoma, unspecified body region (HCC) 1 Occurrences starting 11/15/2021 until 12/15/2022 [facility] Work Phone: Comment on above: 1 Occurrences starting 11/15/2021 until 12/15/2022 End: 08-17-2023 NM PET/CT SKULL-THIGH SUBSEQUENT NM PET/CT SKULL-THIGH SUBSEQUENT Radiology Routine Nodular sclerosing Hodgkin's lymphoma, unspecified body region (HCC) 1 Occurrences starting 07/18/2022 until 08/17/2023 [facility] Work Phone: Comment on above: 1 Occurrences starting 07/18/2022 until 08/17/2023 End: 09-21-2023 NM PET/CT SKULL-THIGH SUBSEQUENT NM PET/CT SKULL-THIGH SUBSEQUENT Radiology Routine 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) 1 Occurrences starting 08/22/2022 until 09/21/2023 [facility] Work Phone: Comment on above: 1 Occurrences starting 08/22/2022 until 09/21/2023 End: 01-31-2024 NM PET/CT SKULL-THIGH SUBSEQUENT NM PET/CT SKULL-THIGH SUBSEQUENT Radiology Routine 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) 1 Occurrences starting 01/01/2023 until 01/31/2024 [facility] Work Phone: Comment on above: 1 Occurrences starting 01/01/2023 until 01/31/2024 End: 09-04-2024 OXIMETRY WITH AMBULATION OXIMETRY WITH AMBULATION PFT Routine Pulmonary hypertension (HCC) 1 Occurrences starting 08/06/2023 until 09/04/2024 [facility] Work Phone: Comment on above: 1 Occurrences starting 08/06/2023 until 09/04/2024 End: 12-10-2024 PET+CT Guidance for localization of tumor of Skull base to mid-thigh-- W [id number] IV NM PET/CT SKULL-THIGH SUBSEQUENT Radiology Routine 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) 1 Occurrences starting 11/11/2023 until 12/10/2024 [facility] Work Phone: Comment on above: 1 Occurrences starting 11/11/2023 until 12/10/2024 PET+CT Guidance for localization of tumor of Skull base to mid-thigh-- W [id number] IV NM PET/CT SKULL-THIGH SUBSEQUENT Radiology Routine 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) 12/11/2023 1:28 PM EDT [facility] Work Phone: End: 01-20-2025 Polysomnogram POLYSOMNOGRAM (PSG) Procedures Routine Pulmonary hypertension (HCC) 1 Occurrences starting 01/21/2024 until 01/20/2025 [facility] Work Phone: Comment on above: 1 Occurrences starting 01/21/2024 until 01/20/2025 End: 06-20-2024 RF videography Hypopharynx and Esophagus Views W liquid and paste contrast PO during swallowing XR MODIFIED BARIUM SWALLOW W SPEECH THERAPY Radiology Routine Dysphagia, unspecified type 1 Occurrences starting 05/22/2023 until 06/20/2024 [facility] Work Phone: Comment on above: 1 Occurrences starting 05/22/2023 until 06/20/2024 End: 01-23-2025 SIX MINUTE WALK SIX MINUTE WALK PFT Routine Acute hypoxic respiratory failure (HCC) Bronchiectasis without complication (HCC) Restrictive lung disease 1 Occurrences starting 12/25/2023 until 01/23/2025 [facility] Comment on above: 1 Occurrences starting 12/25/2023 until 01/23/2025 SIX MINUTE WALK SIX MINUTE WALK PFT Routine Acute hypoxic respiratory failure (HCC) Bronchiectasis without complication (HCC) Restrictive lung disease 01/15/2024 10:24 AM [facility] Work Phone: End: 09-01-2023 SPIROMETRY - BASELINE AND POST DILATOR SPIROMETRY - BASELINE AND POST DILATOR PFT Routine Chronic cough 1 Occurrences starting 08/02/2022 until 09/01/2023 [facility] Work Phone: Comment on above: 1 Occurrences starting 08/02/2022 until 09/01/2023 SPIROMETRY - BASELIN E AND POST DILATOR SPIROMETRY - BASELINE AND POST DILATOR PFT Routine Chronic cough 03/28/2023 1:39 PM [facility] Work Phone: End: 01-23-2025 SPIROMETRY WITH DILATOR IF OBSTRUCTED SPIROMETRY WITH DILATOR IF OBSTRUCTED PFT Routine Acute hypoxic respiratory failure (HCC) Bronchiectasis without complication (HCC) Restrictive lung disease 1 Occurrences starting 12/25/2023 until 01/23/2025 [facility] Work Phone: Comment on above: 1 Occurrences starting 12/25/2023 until 01/23/2025 SPIROMETRY WITH DILA TOR IF OBSTRUCTED SPIROMETRY WITH DILATOR IF OBSTRUCTED PFT Routine Acute hypoxic respiratory failure (HCC) Bronchiectasis without complication (HCC) Restrictive lung disease 01/15/2024 9:13 AM [facility] Work Phone: STREPTOCOCCUS PNEUMO ARNAV AB (IGG) (23 SEROTYPES) STREPTOCOCCUS PNEUMONIA AB (IGG) (23 SEROTYPES) Lab Routine Pneumonia of right upper lobe due to Streptococcus pneumoniae (CMS/HCC) Recurrent sinus infections Ordered: 11/20/2023 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) Ordered: 05/17/2021 [facility] Work Phone: Comment on above: Ordered: 05/17/2021 End: 03-30-2023 Thyrotropin [Units/volume] in Serum or Plasma TSH BLD Lab Routine 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 Occurrences starting 03/31/2022 until 03/30/2023 [facility] Work Phone: Comment on above: Every other week for 25 Occurrences star ting 03/31/2022 until 03/30/2023 End: 03-30-2023 Thyroxine (T4) free [Mass/volume] in Serum or Plasma T4 FREE/FREE THYROX Lab Routine 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 Occurrences starting 03/31/2022 until 03/30/2023 [facility] Work Phone: Comment on above: Every other week for 25 Occurrences star ting 03/31/2022 until 03/30/2023 End: 07-13-2024 US Chest US CHEST EFFUSION SURVEY Radiology Routine Pleural effusion, left 1 Occurrences starting 06/14/2023 until 07/13/2024 [facility] Work Phone: Comment on above: 1 Occurrences starting 06/14/2023 until 07/13/2024 US Chest US CHEST EFFUSIO N SURVEY Radiology Routine Pleural effusion, left 01/03/2024 1:40 PM EST [facility] Work Phone: End: 06-06-2025 US Chest US CHEST EFFUSION SURVEY Radiology Routine Pleural effusion 1 Occurrences starting 05/07/2024 until 06/06/2025 [facility] Work Phone: Comment on above: 1 Occurrences starting 05/07/2024 until 06/06/2025 US Chest US CHEST EFFUSIO N SURVEY Radiology Routine Pleural effusion 05/08/2024 8:05 PM EDT [facility] Work Phone: End: 05-18-2024 XR Chest PA and Lateral XR CHEST 2V FRONTAL/LAT Radiology Routine Influenza with pneumonia 1 Occurrences starting 04/19/2023 until 05/18/2024 [facility] Work Phone: Comment on above: 1 Occurrences starting 04/19/2023 until 05/18/2024 XR Chest PA and Lateral XR CHEST 2V FRONTAL/LAT Radiology Routine Influenza with pneumonia 04/19/2023 9:38 AM EST [facility] Work Phone: End: 09-04-2024 XR Chest PA and Lateral XR CHEST 2V FRONTAL/LAT Radiology Routine Pneumonia due to infectious organism, unspecified laterality, unspecified part of lung 1 Occurrences starting 08/06/2023 until 09/04/2024 [facility] Comment on above: 1 Occurrences starting 08/06/2023 until 09/04/2024 XR Chest PA and Lateral XR CHEST 2V FRONTAL/LAT Radiology Routine Pleural effusion Ordered: 05/12/2024 [facility] Work Phone: Comment on above: Ordered: 05/12/2024 End: 06-20-2024 XR Esophagus Views W contrast PO XR ESOPHAGRAM Radiology Routine Dysphagia, unspecified type Gastroesophageal reflux disease, unspecified whether esophagitis present 1 Occurrences starting 05/22/2023 until 06/20/2024 [facility] Work Phone: Comment on above: 1 Occurrences starting 05/22/2023 until 06/20/2024 End: 08-28-2024 XR Wrist - right PA and Lateral and Oblique XR WRIST GENERAL 3V PA/LAT/OBL RIGHT Radiology Routine Pain 1 Occurrences starting 07/31/2023 until 08/28/2024 [facility] Work Phone: Comment on above: 1 Occurrences starting 07/31/2023 until 08/28/2024 [facility] Immunizations Immunization Date Immunization Notes Care Provider [facility] 12-20-2023 influenza, seasonal, injectable, preservative free Irene Han HEAT READER.SEWAGE DISPOSAL ENGINEER Work Phone: [facility] 12-04-2023 pneumococcal polysaccharide vaccine, 23 valent Gabrielle Zavala MD Work Phone: [facility] 12-04-2023 tetanus and diphther ia toxoids, adsorbed, preservative free, for adult use (2 Lf of tetanus toxoid and 2 Lf of diphtheria toxoid) Gabrielle Zavala MD Work Phone: [facility] 12-16-2014 influenza, injectabl e, quadrivalent, preservative free Sylvia Mancilla HEAT READER.SEWAGE DISPOSAL ENGINEER Work Phone: [facility] 12-16-2014 influenza virus vacc ine, unspecified formulation Charlee Zhao HEAT READER.SEWAGE DISPOSAL ENGINEER Work Phone: [facility] 06-16-2014 hepatitis A and hepa titis B vaccine Sylvia Mancilla HEAT READER.SEWAGE DISPOSAL ENGINEER Work Phone: [facility] 06-16-2014 pneumococcal conjuga te vaccine, 13 valent Sylvia Mancilla HEAT READER.SEWAGE DISPOSAL ENGINEER Work Phone: [facility] 03-11-2014 diphtheria and tetan us toxoids, adsorbed for pediatric use Sylvia Mancilla HEAT READER.SEWAGE DISPOSAL ENGINEER Work Phone: [facility] 03-11-2014 haemophilus influenz ae type b vaccine, PRP-OMP conjugate Sylvia Gross HEAT READER.SEWAGE DISPOSAL ENGINEER Work Phone: [facility] 03-11-2014 meningococcal polysaccharide vaccine (MPSV4) Sylvia Gross HEAT READER.SEWAGE DISPOSAL ENGINEER Work Phone: [facility] 03-11-2014 pneumococcal conjuga te vaccine, 13 valent Sylvia Gross HEAT READER.SEWAGE DISPOSAL ENGINEER Work Phone: [facility] 03-11-2014 poliovirus vaccine, inactivated Sylvia Gross HEAT READER.SEWAGE DISPOSAL ENGINEER Work Phone: [facility] 03-11-2014 tetanus toxoid, adsorbed Josi ka Gross HEAT READER.SEWAGE DISPOSAL ENGINEER Work Phone: [facility] 03-11-2014 tetanus toxoid, redu jessica diphtheria toxoid, and acellular pertussis vaccine, adsorbed Sylvia Gross HEAT READER.SEWAGE DISPOSAL ENGINEER Work Phone: [facility] 12-21-2013 diphtheria and tetan us toxoids, adsorbed for pediatric use Sylvia Gross HEAT READER.SEWAGE DISPOSAL ENGINEER Work Phone: [facility] 12-21-2013 haemophilus influenz ae type b vaccine, PRP-OMP conjugate Sylvia Gross HEAT READER.SEWAGE DISPOSAL ENGINEER Work Phone: [facility] 12-21-2013 hepatitis A and hepa titis B vaccine Sylvia Gross HEAT READER.SEWAGE DISPOSAL ENGINEER Work Phone: [facility] 12-21-2013 influenza, injectabl e, quadrivalent, preservative free Sylvia Gross HEAT READER.SEWAGE DISPOSAL ENGINEER Work Phone: [facility] 12-21-2013 pneumococcal conjuga te vaccine, 13 valent Sylvia Gross HEAT READER.SEWAGE DISPOSAL ENGINEER Work Phone: [facility] 12-21-2013 poliovirus vaccine, inactivated Sylvia Gross HEAT READER.SEWAGE DISPOSAL ENGINEER Work Phone: [facility] 10-14-2013 haemophilus influenz ae type b vaccine, PRP-OMP conjugate Sylvia Gross HEAT READER.SEWAGE DISPOSAL ENGINEER Work Phone: [facility] 10-14-2013 hepatitis A and hepa titis B vaccine Sylvia Gross HEAT READER.SEWAGE DISPOSAL ENGINEER Work Phone: [facility] 10-14-2013 Meningococcal Groups C and Y and Haemophilus b Tetanus Toxoid Conjugate Vaccine Sylvia Gross HEAT READER.SEWAGE DISPOSAL ENGINEER Work Phone: [facility] 10-14-2013 pneumococcal conjuga te vaccine, 13 valent Sylvia Gross HEAT READER.SEWAGE DISPOSAL ENGINEER Work Phone: [facility] 10-14-2013 poliovirus vaccine, inactivated Sylvia Gross HEAT READER.SEWAGE DISPOSAL ENGINEER Work Phone: [facility] 10-14-2013 tetanus toxoid, redu jessica diphtheria toxoid, and acellular pertussis vaccine, adsorbed Sylvia Gross HEAT READER.SEWAGE DISPOSAL ENGINEER Work Phone: [facility] 09-01-2010 hepatitis B vaccine, adult dosage Sylvia Gross HEAT READER.SEWAGE DISPOSAL ENGINEER Work Phone: [facility] 04-04-2010 hepatitis B vaccine, adult dosage Sylvia Gross HEAT READER.SEWAGE DISPOSAL ENGINEER Work Phone: [facility] 03-04-2010 hepatitis B vaccine, adult dosage Sylvia Gross HEAT READER.SEWAGE DISPOSAL ENGINEER Work Phone: [facility] 11-11-2007 hepatitis B vaccine, pediatric or pediatric/adolescent dosage Sylvia Gross HEAT READER.SEWAGE DISPOSAL ENGINEER Work Phone: [facility] 10-14-2007 hepatitis B vaccine, pediatric or pediatric/adolescent dosage Sylvia Gross HEAT READER.SEWAGE DISPOSAL ENGINEER Work Phone: [facility] Payers Date Payer Category Payer Medicare (Managed Care) [employer]AN[employer]A BECKETT [id number] 2023 Self-pay [id number] 2020 Medicaid MEDICAID [facility] MEDICAID [id number] 2020-Present [phone] [address] [place] [address] Medicaid [id number] 2020 Medicaid [id number] 2014 Medicare MEDICARE MEDICAR E A AND B [id number] 2014-Present [phone] [address] [address] [place] [address] Medicare [id number] 2014 Medicare [id number] 1982 Unknown [id number] 1982 Unknown [id number] 1982 Unknown [id number] 1982 Unknown [id number] [id number] 1982 Unknown [id number] 1982 Unknown [id number] [id number] 1982 Unknown [id number] 1982 Unknown [id number] [id number] 1982 Unknown [id number] 1982 Unknown [id number] 1980 Unknown [id number] 1957 Medicaid [id number] 1957 Medicare [id number] 1957 Medicare [id number] Unknown [id number] Social History Date Type Detail Facility Start: 01-28-2012 End: 08-23-2022 Tobacco smoking status NHIS Ex-smoker [facility] Start: 01-17-2002 End: 01-18-2012 History of tobacco use Current smoker [facility] Start: 01-17-2002 End: 01-18-2012 History of tobacco use Cigarette Smoker [facility] Start: 01-28-2012 End: 08-23-2022 Tobacco use and exposure Smokeless tobacco non-user [facility] Start: 03-15-2021 End: 06-08-2024 Alcohol intake Current drinker of alcohol (finding) [facility] Start: 03-15-2021 End: 06-08-2024 Alcohol intake [facility] Start: 11-18-2019 History SDOH Alcohol Frequency 2 [facility] Start: 11-18-2019 History SDOH Alcohol Std Drinks 1 [facility] Start: 03-18-2017 History SDOH Alcohol Comment 2 drinks per month [facility] Start: 1980 Sex Assigned At Female [facility] Start: 01-04-2021 End: 12-27-2021 Exposure to SARS-CoV-2 (event) Not sure [facility] Start: 01-06-2022 End: 01-16-2022 Exposure to SARS-CoV-2 (event) Unable to assess [facility] Start: 08-01-2022 End: 06-08-2024 Tobacco use panel [facility] Adult Depression Screening Assessment 0 [facility] Start: 04-17-2021 Gender identity Identifies as female gender (finding) [facility] Start: 04-17-2021 Sexual orientation Heterosexual (angely skinner) [facility] How often to you hav e a drink containing alcohol? Monthly or less [facility] How many standard dr inks containing alcohol do you have on a typical day? 1 or 2 [facility] How often do you hav e 6 or more drinks on 1 occasion? Never [facility] History of tobacco use Passive smoker [facility] Start: 1980 Sex Assigned At Not on file N [facility] Has the [place], [place], or water [employer] threatened to shut off services in your home in past 12Mo No [facility] (I/We) worried diogenes er (my/our) food would run out before (I/we) got money to buy more. Never true [facility] Start: 03-13-2024 End: 05-04-2024 Alcoholic beverage intake Ex-drinker (finding) [facility] [place] christa Medical Equipment Procedure Code Equipment Code Equipment Origin al Text Equipment Identifier Dates Port Inf 1 Lum Attach Cath - [id number] Start: 01-31-2012 Comment on above: Description: BARD PO WER PORT Goals Date Patient Goal Desired Activity /State Personal health goal Functional Status Date Assessment Result Facility 06-08-2024 Patient Health Quest ionnaire 2 item (PHQ-2) [Reported] [facility] 06-08-2024 PHQ-9 quick depressi on assessment panel [Reported.PHQ] [facility] 09-23-2014 Are you deaf, or do you have serious difficulty hearing No 09/23/2014 10:45 AM Anayeli Rossi LPN No [facility] 09-23-2014 Are you blind, or do you have serious difficulty seeing, even when wearing glasses No 09/23/2014 10:45 AM Anayeli Rossi LPN No [facility] 09-23-2014 Do you have serious difficulty walking or climbing stairs Yes 09/23/2014 10:45 AM Anayeli Rossi LPN Yes [facility] 09-23-2014 Do you have difficul ty dressing or bathing No 09/23/2014 10:45 AM Anayeli Rossi LPN No [facility] 09-23-2014 Because of a physica l, mental, or emotional condition, do you have difficulty doing errands alone such as visiting a physician's office or shopping No 09/23/2014 10:45 AM EDT [facility] Pull[facility] Status Date Assessment Result Facility 09-23-2014 Because of a physica l, mental, or emotional condition, do you have serious difficulty concentrating, remembering, or making decisions No 09/23/2014 10:45 AM EDT Anayeli Pulliam LPN No [facility] Clinical Notes 03-15-2017 to 06-25-2024 Telephone Encounter - Irene Han APRN.PEDRO - 06/25/2024 5:47 PM EDTTelephone Encounter - Irene Han APRN.CNP - 06/25/2024 5:47 PM EDChauncey Lin NP - 06/08/2024 8:00 AM EDT Note Date & Type Note Facility 06-25-2024 Telephone encounter Note PDMP website checked and validated. All prescriptions have been APPROPRIATELY filled. No suspicious activity was identified. 06/25/2024 by Irene Han APRN.PEDRO Rx sent Irene Han APRN.PEDRO [facility] 06-25-2024 Miscellaneous Notes PDMP website checked and validated. All prescriptions have been APPROPRIATELY filled. No suspicious activity was identified. 06/25/2024 by Irene Han APRN.SEWAGE DISPOSAL ENGINEER Rx sent Irene Han APRN.SEWAGE DISPOSAL ENGINEER Last ordered: 05/29 (30 days) Last appointment 04/23 The following prescription(s) will be transmitted electronically to [facility] upon approval. Patient has been notified. Requested Prescriptions Pending Prescriptions Disp Refills oxyCODONE IR (ROXICODONE) 10 mg tab 90 tablet 0 Sig: Take 1 tablet by mouth every 8 hours as needed for pain for up to 30 days. Future Appointments Date Time Provider Department Center 07/29/2024 1:30 PM 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 APRN.PEDRO [place] [facility] 07/30/2024 10:00 AM [facility]PED[facility] 9:45 AM LAB ADAM ARTIS MELIN[facility] [place] 08/03/2024 10:00 AM Ruperto Ledezma MD [place] [facility] [place] documented in this encounter [facility] 06-25-2024 Telephone encounter Note Last ordered: 05/29 (30 days) Last appointment 04/23 The following prescription(s) will be transmitted electronically to [facility] upon approval. Patient has been notified. Requested Prescriptions Pending Prescriptions Disp Refills oxyCODONE IR (ROXICODONE) 10 mg tab 90 tablet 0 Sig: Take 1 tablet by mouth every 8 hours as needed for pain for up to 30 days. Future Appointments Date Time Provider Department Center 07/29/2024 1:30 PM 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 APRN.PEDRO PATELValencia Brittney [facility] 07/30/2024 10:00 AM [facility] 08/03/2024 9:45 AM MAYELIN ARTIS MELINDA [facility] [place] 08/03/2024 10:00 AM Ruperto Ledezma MD [place] [facility] [place] [facility] 06-24-2024 Telephone encounter Note Follow up scheduled. [facility] 06-24-2024 Miscellaneous Notes Follow up scheduled. KENN 05/12/24 ([facility]) NOV needs to be scheduled Requested Prescriptions Pending Prescriptions Disp Refills ANORO ELLIPTA 62.5-25 mcg/actuation inhaler [Pharmacy Med Name: ANORO ELLIPTA 62.5-25 MCG INH] 60 each 1 Sig: INHALE 1 INHALATION INSTRUCTED ONCE DAILY. documented in this encounter [facility] 06-24-2024 Telephone encounter Note KENN 05/12/24 ([facility]) NOV needs to be scheduled Requested Prescriptions Pending Prescriptions Disp Refills ANORO ELLIPTA 62.5-25 mcg/actuation inhaler [Pharmacy Med Name: ANORO ELLIPTA 62.5-25 MCG INH] 60 each 1 Sig: INHALE 1 INHALATION INSTRUCTED ONCE DAILY. [facility] 06-09-2024 Telephone encounter Note Chart notes from 01/21/2024 faxed over to [facility] with confirmation. [facility] 06-09-2024 Miscellaneous Notes Chart notes from 01/21/2024 faxed over to [facility] with confirmation. I placed the order for the CPAP on behalf of Dr. Mora who saw her for PH so will need to send his notes as well. Will forward encounter to provider in regard to noting BRIAN in her chart notes as I do not see any previous pulmonary notes regarding the pt's BRIAN. Falguni from [facility] is calling 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 APRN.CNP today to request office notes prior to the sleep study. Stated she received the 05.12.24 notes, but doesn't mention anything regarding the BRIAN. Please advise. Fax number: [phone] Patient has been identified by name and birthdate. Duration of symptoms: N/A Person calling: Falguni Montes De Oca at: [phone] Was an appointment scheduled: No Closing statement: Results or non-symptom based questions: Thank you for calling [facility], your call will be returned within the next business day. Thank you, Valeria Garg documented in this encounter [facility] 06-09-2024 Miscellaneous Notes Faxed neb supply order to [facility] w/ confirmation via [employer]. Faxed Dr. BREWER office visit notes to [facility] via [employer]. Called [facility] to get fax number ([phone]) Pended neb supply order. documented in this encounter [facility] 06-09-2024 Telephone encounter Note Faxed neb supply order to [facility] w/ confirmation via [employer]. [facility] 06-09-2024 Telephone encounter Note Faxed Dr. BREWER office visit notes to [facility] via [employer]. Called [facility] to get fax number ([phone]) Pended neb supply order. [facility] 06-09-2024 Telephone encounter Note I placed the order for the CPAP on behalf of Dr. Mroa who saw her for so will need to send his notes as well. [facility] 06-08-2024 History of Present illness Narrative Images from the original note were not included. Subjective Patient ID: Celso Weller is a 43 y.o. female who presents for Follow-up. 3 mo follow up Asthma/restrictive lung disease Sees pulmonary Stable Depression/anxiety Takes lexapro - increased to 20 mg - didn't go well Went back to 10 mg daily Doesn't know if it is really helping Mentioned this to palliative care UNPAID INTERN Takes ativan daily at least Insomnia On trazodone Had a sleep study Pulse ox drops into the 70s Mild sleep apnea Working on getting cpap x 2-3 weeks Neuropathy Takes gapapentin No changes Pulmonary HTN Had cath in February Lymphoma Sees oncology Stable This past Saturday started not feeling well- GI symptoms Worse through the day Horrible diarrhea/ watery and then vomiting Fever to 102.7 Couldn't keep anything down Woke up the next am- felt better LT leg pain Intermittent x 2 weeks Deep hip area pain- zings down the leg quickly No numbness/tingling No weakness Doesn't hurt to lay on it Current Outpatient Medications on File Prior to Visit Medication Sig Dispense Refill atenolol (Tenormin) 50 MG tablet TAKE 1 TABLET BY MOUTH TWICE A DAY 180 tablet 3 baclofen (Lioresal) 5 MG tablet Take 5 mg by mouth in the morning and 5 mg in the evening and 5 mg before bedtime. dexlansoprazole (Dexilant) [address] capsule Take 1 capsule (30 mg) by mouth Daily Do not crush or chew. 90 capsule 2 escitalopram (Lexapro) 20 MG tablet Take 1 tablet (20 mg) by mouth Daily 90 tablet 3 fluocinonide (Lidex) 0.05 % cream Apply 1 application topically in the morning and 1 application before bedtime. 60 g 0 gabapentin (Neurontin) 300 MG capsule Take 2 capsules (600 mg) by mouth in the morning and 2 capsules (600 mg) in the evening and 2 capsules (600 mg) before bedtime. 270 capsule 3 ipratropium (Atrovent) 0.06 % nasal spray Administer 2 sprays into each nostril in the morning and 2 sprays in the evening and 2 sprays before bedtime. 15 mL 11 ipratropium-albuterol (Duo-Neb) 0.5-2.5 mg/3 mL nebulizer solution Take 3 mL by nebulization every 6 (six) hours 180 mL 3 ketoconazole (NIZOral) 2 % cream Apply 1 [...] as needed for anxiety 120 tablet 2 oxyCODONE (Roxicodone) 10 MG immediate release tablet Take 10 mg by mouth every 4 (four) hours if needed. Probiotic Product (Probiotic Daily) capsule 1 (one) time each day at the same time. prochlorperazine (Compazine) 10 MG tablet Take 1 tablet (10 mg) by mouth every 6 (six) hours if needed for nausea 30 tablet 11 rivaroxaban (Xarelto) 10 MG tablet Take 1 tablet (10 mg) by mouth Daily 90 tablet 3 traZODone (Desyrel) 150 MG tablet TAKE 1 TABLET (150 MG) BY MOUTH NEEDED AT BEDTIME FOR SLEEP 90 tablet 1 No current facility-administered medications on file prior to visit. Allergies Allergen Reactions Chlorhexidine Unknown Sulfa Antibiotics Unknown I have reviewed and reconciled the history and medication list with the patient today. Review of Systems Constitutional: Negative for fatigue, fever and unexpected weight change. Respiratory: Negative for cough, chest tightness and wheezing. Cardiovascular: Negative for chest pain, palpitations and leg swelling. Gastrointestinal: Negative for abdominal pain, constipation, diarrhea, nausea and vomiting. Musculoskeletal: See HPI Neurological: Negative for headaches. Psychiatric/Behavioral: Positive for dysphoric mood and sleep disturbance. Negative for suicidal ideas. The patient is nervous/anxious. Visit Vitals BP 112/64 Pulse 102 Ht 6' SpO2 98% BMI 29.84 kg/m Smoking Status Former BSA 2.25 m Patient Health Questionnaire-2 Score: 2 Patient Health Questionnaire-9 Score: 5 Patient Health Questionnaire-9 Score: 5 Objective Physical Exam Constitutional: General: She is not in acute distress. Appearance: Normal appearance. HENT: Head: Normocephalic and atraumatic. Right Ear: Tympanic membrane and ear canal normal. Left Ear: Tympanic membrane and ear canal normal. Nose: Nose normal. Mouth/Throat: Mouth: Mucous membranes are moist. Pharynx: Oropharynx is clear. No oropharyngeal exudate or posterior oropharyngeal erythema. Eyes: Extraocular Movements: Extraocular movements intact. Conjunctiva/sclera: Conjunctivae normal. Pupils: Pupils are equal, round, and reactive to light. Neck: Vascular: No carotid bruit. Cardiovascular: Rate and Rhythm: Normal rate and regular rhythm. Pulses: Normal pulses. Heart sounds: Normal heart sounds. No murmur heard. No friction rub. No gallop. Pulmonary: Effort: Pulmonary effort is normal. No respiratory distress. Breath sounds: Normal breath sounds. No wheezing, rhonchi or rales. Abdominal: General: Bowel sounds are normal. There is no distension. Palpations: Abdomen is soft. There is no mass. Tenderness: There is no abdominal tenderness. There is no guarding. Musculoskeletal: General: No swelling or deformity. Normal range of motion. Cervical back: Normal range of motion and neck supple. Left hip: Normal range of motion. Left lower leg: No tenderness. No edema. Comments: No pain with SLR No pain with adduction/abduction NO pain with palpation bursa Lymphadenopathy: Cervical: No cervical adenopathy. Skin: General: Skin is warm and dry. Findings: No rash. Neurological: General: No focal deficit present. Mental Status: She is alert and oriented to person, place, and time. Cranial Nerves: No cranial nerve deficit. Motor: No weakness. Gait: Gait normal. Deep Tendon Reflexes: Reflexes normal. Psychiatric: Mood and Affect: Mood normal. Behavior: Behavior normal. Thought Content: Thought content normal. Judgment: Judgment normal. Assessment/Plan 1. Asthma, unspecified asthma severity, unspecified whether complicated, unspecified whether persistent (CMS/HCC) (Primary) 2. Restrictive lung disease Sees pulmonary Stable Continue plan monitor 3. Anxiety Uses ativan at least daily Change lexapro to cymbalta - DULoxetine (Cymbalta) [address] capsule; Take 1 capsule (30 mg) by mouth Daily Do not crush or chew. Dispense: 30 capsule; Refill: 2 4. Major depressive disorder, single episode, mild (HCC) (CMS/HCC) Not sure that lexapro is helping much- didn't tolerate increasing to 20 mg Talked to palliative care UNPAID INTERN - suggested trial of cymbalta Will transition from lexapro 10 mg to cymbalta Discussed risks and benefits of medication, pt voices understanding and agreeable to start Monitor - DULoxetine (Cymbalta) [address] capsule; Take 1 capsule (30 mg) by mouth Daily Do not crush or chew. Dispense: 30 capsule; Refill: 2 5. Primary insomnia Takes trazodone monitor 6. Nodular sclerosing Hodgkin's lymphoma, unspecified body region ([facility]) Sees oncology Stable Monitor She is on pain meds and benzo- no issues 7. Screening mammogram for breast cancer - Bilateral screening mammogram; Future 8. Neuropathy - DULoxetine (Cymbalta) [address] capsule; Take 1 capsule (30 mg) by mouth Daily Do not crush or chew. Dispense: 30 capsule; Refill: 2 9. Left leg pain As above Monitor- seems to be improving We will continue to follow up with this patient on a continued longterm basis to monitor and treat the above listed problems as well as their other chronic illnesses as part of a longitudinal care plan documented in this encounter [facility] 06-04-2024 Telephone encounter Note Will forward encounter to provider in regard to noting BRIAN in her chart notes as I do not see any previous pulmonary notes regarding the pt's BRIAN. [facility] 06-04-2024 Telephone encounter Note Falguni from [facility] is calling 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 APRN.CNP today to request office notes prior to the sleep study. Stated she received the 05.12.24 notes, but doesn't mention anything regarding the BRIAN. Please advise. Fax number: [phone] Patient has been identified by name and birthdate. Duration of symptoms: N/A Person calling: Falguni Call Falguni at: [phone] Was an appointment scheduled: No Closing statement: Results or non-symptom based questions: Thank you for calling [facility], your call will be returned within the next business day. Thank you, Valeria Garg [facility] 06-04-2024 Telephone encounter Note Images from the original note were not included. Pt's cpap /pap supply order, demographics, most recent chart notes, and most recent PFTs faxed to the pt's DME with confirmation. Pt notified via [employer] to contact their DME to check on the status of their order. [facility] 06-04-2024 Miscellaneous Notes Images from the original note were not included. Pt's cpap /pap supply order, demographics, most recent chart notes, and most recent PFTs faxed to the pt's DME with confirmation. Pt notified via [employer] to contact their DME to check on the status of their order. documented in this encounter [facility] 05-29-2024 History of Present illness Narrative Radiology Service Progress Note PATIENT NAME: Celso Weller DATE OF SERVICE: May 29, 2024 TIME: 8:56 AM PATIENT IDENTITY VERIFICATION COMPLETED USING TWO (2) IDENTIFIERS: Name and Date of confirmed by patient verbally. FALL SCREENING: Has the patient had 2 falls in the last year or 1 fall with injury or currently using an Ambulatory Assistive Device (Walker, Cane, Wheelchair, Crutches, etc.)? No PATIENT GENDER DATA: Assigned female at . status: : No status: NO. PATIENT RELEVANT IMPLANT DATA REVIEWED: Not Applicable PATIENT PRESENTS WITH AN IMPLANTABLE OR ATTACHED CHAIN SPLITTER: No RADIOLOGY DEPARTMENT: General X-ray: Exam(s) Completed: Chest X-Ray PERIPHERAL IV DATA: Not applicable SIGNED BY: RT Anaya(R) May 29, 2024 8:56 AM documented in this encounter [facility] 05-20-2024 Telephone encounter Note Pt's cpap /bipap order, demographics, most recent chart notes, and most recent PFTs faxed to the pt's DME with confirmation. Pt notified via [employer] to contact their DME to check on the status of their order. [facility] 05-20-2024 Miscellaneous Notes Pt's cpap /bipap order, demographics, most recent chart notes, and most recent PFTs faxed to the pt's DME with confirmation. Pt notified via [employer] to contact their DME to check on the status of their order. Addended by: KYLIE MILLER on: 05/20/2024 01:12 PM Modules accepted: Orders Please send CPAP to the company that she currently gets her O2 from documented in this encounter [facility] 05-20-2024 Note Addended by: KYLIE MILLER on: 05/20/2024 01:12 PM Modules accepted: Orders [facility] 05-20-2024 Telephone encounter Note Please send CPAP to the company that she currently gets her O2 from [facility] 05-12-2024 History of Present illness Narrative Images from the original note were not included. [facility] ESTABLISHED PATIENT OFFICE VISIT May 12, 2024 My final reccommendations will be communicated back to the requesting physician by way of shared medical record or US mail. The patient consented to the use of ambient [employer] software for draft documentation of the visit consistent with [facility] s Notice of Privacy Practices. ASSESSMENT/PLAN: 1. Pleural effusion - ICD9: 511.9, ICD10: J90 (primary diagnosis) Initially noted to be moderate on 05/04, treated with medrol pack at that time. US chest effusion survey done 05/08 notes a small pleural effusion on the left. She is completely asymptomatic at this time. Given the small size of the effusion, would not recommend thoracentesis at this time. Plan to repeat CXR in 2 weeks to follow effusion. She will notify us sooner if symptoms develop - XR CHEST 2V FRONTAL/LAT 2. Bronchiectasis without complication (HCC) - ICD9: 494.0, ICD10: J47.9 3. Restrictive lung disease - ICD9: 518.89, ICD10: J98.4 Continue current regimen of Anoro Qday, Duoneb + Nebusal + Flutter valve once daily and PRN 4. Chronic respiratory failure with hypoxia (HCC) - ICD9: 518.83, 799.02, ICD10: J96.11 Continue 2-3L supplemental O2 PRN and HS 5. Pulmonary hypertension (HCC) - ICD9: 416.8, ICD10: I27.[address] Mora Follow up in 4 weeks I have discussed the above recommendations in detail with the patient. Patient verbalizes understanding and is in agreement with plan as stated above. Patient has been instructed to call our office, their PCP, or go to the nearest emergency department for new or worsening problems, including but not limited to, increasing shortness of breath, cough, fever, or chills. Electronically signed by 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 APRN.CNP 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 Former smoker. Here for follow up on pleural effusion. February had pneumonia. Of note, she has had many bouts of pneumonia (treated at OSH) over the last year. On May 04 she saw her oncologist. She mentioned increased fatigue, orthopnea, and overall feeling unwell. They did a CXR and this showed a new moderate effusion on the left. She was given a steroid dose pack and noted remarkable improvement in symptoms with this treatment. She mentioned concerns to Dr. Carver, at which time imaging was reviewed. An order was placed for a chest US to further evaluate the effusion. As far as her breathing currently she feels well and back to baseline. Compliant with her Anoro, using her nebulizer with Duoneb and Nebusal + Flutter valve at least one daily. Sleeping with her supplemental O2. Denies cough, wheezing, fevers, chest pain, pressure, N/V/D Currently airway regimen: Anoro Nebusal Duoneb Flutter valve A complete ROS was preformed and all areas were negative except for what is listed in the HPI I have reviewed and updated the complete medication list in the EMR. ALLERGIES Allergen Reactions Chlorhexidine Itching Severe skin irritation. Had used for central line care Sulfa (Sulfonamide * Rash IMMUNIZATIONS: Immunization History Administered Date(s) Administered Haemophilus influenzae b (Hib PRP-OMP) vaccine, 3-dose series (PEDVAX HIB) 10/14/2013 12/21/2013 03/11/2014 Haemophilus influenzae b-meningococcal bivalent (Iuu-SqkPF-XE) vaccine (MENHIBRIX) 10/14/2013 diphtheria tetanus (DT) vaccine, pediatric 12/21/2013 03/11/2014 hepatitis A-hepatitis B (HepA-HepB) vaccine (TWINRIX) 10/14/2013 12/21/2013 06/16/2014 hepatitis B (HepB) vaccine, 3-dose series, age 0 yr - 19 yr (ENGERIX B-PEDS, RECOMBIVAX HB-PEDS) 10/14/2007 11/11/2007 hepatitis B (HepB) vaccine, 3-dose series, age 20+ yr (ENGERIX-B, RECOMBIVAX HB) 03/04/2010 04/04/2010 09/01/2010 influenza (IIV3) vaccine, age 6 mo - 64 yr, trivalent, PF (AFLURIA, FLUARIX, FLULAVAL, FLUVIRIN, FLUZONE) 12/20/2023 influenza (IIV4) vaccine, age 6 mo - 64 yr, quadrivalent, PF (AFLURIA, FLUARIX, FLULAVAL, FLUZONE) 12/21/2013 12/16/2014 meningococcal (MPSV4) vaccine, quadrivalent (MENOMUNE) 03/11/2014 pneumococcal conjugate (PCV13) vaccine, 13 valent (PREVNAR 13) 10/14/2013 12/21/2013 03/11/2014 06/16/2014 poliovirus (IPV) vaccine, inactivated (IPOL) 10/14/2013 12/21/2013 03/11/2014 tetanus diphtheria pertussis (Tdap) vaccine, age 7+ yr (ADACEL, BOOSTRIX) 10/14/2013 03/11/2014 tetanus toxoid (TT) vaccine 03/11/2014 PHYSICAL EXAMINATION: General: alert and appropriate, in no distress and well-hydrated, well nourished Skin: no rash noted Respiratory: breathing non-labored and no grunting/flaring/retractions Chest: equal chest rise with normal respiratory effort Neurologic: no obvious deficit DATA REVIEW: I have personally reviewed the following: Most recent labs reviewed. US Chest 05/08 IMPRESSION: There is no right pleural effusion. There is a small left pleural effusion. Oximetry with Ambulation Test for This Encounter O2 Device O2 Adapter NC O2 Flow SpO2% HR Activity Ft Walked (ft) Time (min) Avg Speed (MPH) R/A 98 93 Resting R/A 93 114 Walking, usual pace 535 3 2.03 R/A 98 98 Resting R/A 92 121 Walking, fastest pace 705 3 2.67 PET 12/10 IMPRESSION: Since 05/20/2023, RAMAKRISHNA DISEASE: * No metabolically active lymphadenopathy. EXTRANODAL DISEASE: * No metabolically active extranodal disease. ADDITIONAL FINDINGS: * Grossly stable left apical parenchymal irregular opacity likely representing chronic atelectasis/scarring. * Groundglass changes more prominent in the right upper lobe with no increased uptake likely representing infectious/inflammatory changes. Hemoglobin (g/dL) Date Value 05/04/2024 14.3 04/05/2021 15.3 Hematocrit (%) Date Value 05/04/2024 43.1 04/05/2021 45.8 WBC (k/uL) Date Value 05/04/2024 7.60 04/05/2021 8.31 Glucose (mg/dL) Date Value 05/04/2024 123 04/05/2021 127 Potassium (mmol/L) Date Value 05/04/2024 4.3 04/05/2021 4.4 Sodium (mmol/L) Date Value 05/04/2024 142 04/05/2021 140 Chloride (mmol/L) Date Value 05/04/2024 105 04/05/2021 105 CO2 (mmol/L) Date Value 05/04/2024 27 04/05/2021 27 Creatinine (mg/dL) Date Value 05/04/2024 0.67 04/05/2021 0.79 BUN (mg/dL) Date Value 05/04/2024 9 04/05/2021 12 Anion Gap (mmol/L) Date Value 05/04/2024 10 04/05/2021 8 Calcium (mg/dL) Date Value 04/05/2021 9.8 Calcium, Total (mg/dL) Date Value 05/04/2024 9.3 Protein, Total (g/dL) Date Value 05/04/2024 6.2 04/05/2021 7.1 Albumin (g/dL) Date Value 05/04/2024 4.1 04/05/2021 4.4 Bilirubin, Total (mg/dL) Date Value 05/04/2024 0.3 04/05/2021 0.5 Alkaline Phosphatase (U/L) Date Value 05/04/2024 64 04/05/2021 86 AST (U/L) Date Value 05/04/2024 27 04/05/2021 87 ALT (U/L) Date Value 05/04/2024 29 04/05/2021 106 Last Spirometry SPIROMETRY WITH DILATOR IF OBSTRUCTED Collected: 01/15/2024 9:13 AM (Final result) Narrative: [facility] [address] 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 Start of test and EOFE criteria met. Current ATS/ERS acceptability and repeatability standards for DLCO met with 2 acceptable maneuvers. DLCO is hemoglobin and carboxyhemoglobin corrected. Hemoglobin and carboxyhemoglobin obtained from [facility] Lab/ABG drawn in PFT lab on 01/15/24. //RK IMPRESSION: Spirometry shows normal FEV1/ FVC ratio but FEV1 and FVC are symmetrically reduced, suggesting an underlying restriction. However, obstruction cannot be ruled out. Suggest obtaining lung volumes to clarify defect if clinically indicated. The diffusion capacity is severely reduced. Electronically Signed On 01-20-2024 14:32:54 EST by Maxi Valdez MD ID: [id number] Name: CELSO WELLER Race: White Ht: 70.87 in Wt: 218.26 lbs Age: 43 Gender: Female : 1980 Dx: Acute respiratory failure with hypoxia Smoking Hx: Non-smoker Doctor: KLYIE MILLER Test Date: 01/15/2024 Site: Tech: Perla Powell PRE-BRONCH POST-BRONCH Pre LLN Pred ULN %Pred Post %Pred %Chg SPIROMETRY FVC (L) 2.07 3.39 4.46 5.55 46 FEV1 (L) 1.72 2.72 3.61 4.45 47 FEV1/FVC 0.83 0.70 0.81 0.90 102 PEF L/s (L/sec) 6.27 5.96 8.06 10.16 77 FEF50 (L/sec) 3.18 2.74 4.34 5.95 73 FIF50 (L/sec) 3.59 FEF50/FIF50 0.88 90-100 FIVC (L) 2.07 XMD83-10 (L/sec) 2.02 2.16 3.60 5.34 56 Time (sec) 5.79 FET PEF (sec) 0.08 ARUN (L) 0.08 Vol Extrap % (%) 4 LUNG DIFFUSION DLCOunc (ml/min/mmHg) 12.51 20.30 26.47 32.64 47 VA (L) 2.78 5.09 6.19 7.29 44 DLunc/VA (ml/min/mmHg/L) 4.51 3.10 4.42 5.73 102 DLCOcor (ml/min/mmHg) 12.22 20.30 26.47 32.64 46 DLcor/VA (ml/min/mmHg/L) 4.40 4.28 102 BHT (sec) 9.35 IVC (L) 2.02 Hgb (gm/dL) 14.20 12-18 COHb (%) 1.60 < 1.5 Comments: Current ATS/ERS acceptability and repeatability standards for spirometry met. Start of test and EOFE criteria met. Current ATS/ERS acceptability and repeatability standards for DLCO met with 2 acceptable maneuvers. DLCO is hemoglobin and carboxyhemoglobin corrected. Hemoglobin and carboxyhemoglobin obtained from [facility] Lab/ABG drawn in PFT lab on 01/15/24. //RK Latest Ref Rng & Units 03/28/2023 01/15/2024 Spirometry Data FVC PRE (L) L 2.05 2.07 FVC POST (L) L 2.06 FEV1 PRE (L) L 1.67 1.72 FEV1_POST (L) L 1.73 FEV1/FVC PRE (%) % 81 83 FEV1/FVC POST (%) % 84 AQX32-59% PRE (L/S) L/S 1.76 2.02 VUB69-87% POST (L/S) L/S 2.24 PEF PRE (L/S) L/S 6.85 6.27 PEF POST (L/S) L/S 6.91 DLCO (ml/min/mmHg) ml/min/mmHg 12.62 12.51 VA (L) L 2.82 2.78 DLCO/VA (ml/min/mmHg/L) ml/min/mmHg/L 4.47 4.51 DLCOcor (ml/min/mmHg) ml/min/mmHg 12.[address] Chest - Impression Only CT CHEST WO IVCON Collected: 07/17/2022 1:18 PM (Final result) Last XR Chest - Impression Only XR CHEST 2V FRONTAL/LAT Exam End: 05/04/2024 10:50 AM (Final result) Impression: IMPRESSION: New moderate left pleural effusion. Transcribe Date/Time: May 04 2024 11:15A Dictated by: JEWELL VUONG MD... Recent Results (from the past 83042 hours) ECHO Collection Time: 01/08/24 8:01 AM Impression CONCLUSIONS: - Exam indication: Re-evaluation of known pulmonary hypertension (to guide therapy) - The left ventricle is normal in size. There is mild concentric left ventricular hypertrophy. Left ventricular systolic function is normal. EF = 55 5% (2D biplane) - The right ventricle is normal in size. Right ventricular systolic function is normal. - There is moderate (2+) holosystolic mitral valve regurgitation. Regurgitant orifice area (PISA) is 0.13 cm . Unclear mechanism of MR. - There is moderate (2+) aortic valve regurgitation. - Estimated right ventricular systolic pressure is 52 mmHg consistent with moderate pulmonary hypertension. Estimated right atrial pressure is 3 mmHg based on IVC assessment. - Exam was compared with the prior echocardiographic exam performed on 03/20/23. No significant change. * * * Final * * * 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 APRN.CNP May 12, 2024 This note was partially generated using Gen110 voice recognition system, and there may be some incorrect words, spellings, and punctuation that were not noted in checking the note before saving. documented in this encounter [facility] 05-08-2024 History of Present illness Narrative Radiology Service Progress Note PATIENT NAME: Celso Weller DATE OF SERVICE: May 08, 2024 TIME: 8:05 PM PATIENT IDENTITY VERIFICATION COMPLETED USING TWO (2) IDENTIFIERS: Name and Date of confirmed by patient verbally and Name and Date of confirmed by identification band. FALL SCREENING: Has the patient had 2 falls in the last year or 1 fall with injury or currently using an Ambulatory Assistive Device (Walker, Cane, Wheelchair, Crutches, etc.)? No PATIENT GENDER DATA: Assigned female at . status: Unknown status: N/A PATIENT RELEVANT IMPLANT DATA REVIEWED: Not Applicable PATIENT PRESENTS WITH AN IMPLANTABLE OR ATTACHED CHAIN SPLITTER: No RADIOLOGY DEPARTMENT: Ultrasound PERIPHERAL IV DATA: Not applicable SIGNED BY: Michelle Drew RDMS May 08, 2024 8:05 PM documented in this encounter [facility] 05-08-2024 Note HNO ID: [id number] Author: MICHELLE DREW RDMS Service: ? Author Type: Technologist Type: Progress Notes Filed: 05/08/2024 20:05 Note Text: Radiology Service Progress Note PATIENT NAME: Celso Weller DATE OF SERVICE: May 08, 2024 TIME: 8:05 PM PATIENT IDENTITY VERIFICATION COMPLETED USING TWO (2) IDENTIFIERS: Name and Date of confirmed by patient verbally and Name and Date of confirmed by identification band. FALL SCREENING: Has the patient had 2 falls in the last year or 1 fall with injury or currently using an Ambulatory Assistive Device (Walker, Cane, Wheelchair, Crutches, etc.)? No PATIENT GENDER DATA: Assigned female at . status: Unknown status: N/A PATIENT RELEVANT IMPLANT DATA REVIEWED: Not Applicable PATIENT PRESENTS WITH AN IMPLANTABLE OR ATTACHED CHAIN SPLITTER: No RADIOLOGY DEPARTMENT: Ultrasound PERIPHERAL IV DATA: Not applicable SIGNED BY: Michelle Drew RDMS May 08, 2024 8:05 PM [facility] 05-07-2024 Telephone encounter Note Pls schedule USG chest on day of visit with SARAH on 05/12 to assess the fluid status Thanks Jani Carver MD [facility] 05-07-2024 Miscellaneous Notes Pls schedule USG chest on day of visit with SARAH on 05/12 to assess the fluid status Thanks Jani Carver MD Thanks for letting me know Pls let pt know - Reviewed her image and concerns It seems the pleural effusion has worsened in size compared to prior study. No over Pneumonia findings on CXR It seems she was treated locally for few bouts of pneumonia. I don't have those images, to review to see when the fluid built up happened She may need that looked at and possible removed via thoracentesis. If she is still concerned about pneumonia, she should come to the ER for eval. I will otherwise route this to scheduling pool for her to be evaluated via visit She would likely need to be seen urgently Thanks Jani Carver MD Called and spoke with pt, passed along Dr. Watson message above (from other phone encounter). Pt verbalized understanding. Pt stated after starting medrol pack breathing has been quite good. Due to pt living over an hour away she declined SARAH visit. Pt stated if symptoms get worst she would come to [place] ER. Pt wanted to know if Dr. Carver wanted any further imaging, or when should next imaging be scheduled. Will route to Dr. Carver. Patient calling in as instructed below but she does not know why she needs an appointment. Please call patient to advise documented in this encounter [facility] 05-06-2024 Telephone encounter Note Thanks for letting me know Pls let pt know - Reviewed her image and concerns It seems the pleural effusion has worsened in size compared to prior study. No over Pneumonia findings on CXR It seems she was treated locally for few bouts of pneumonia. I don't have those images, to review to see when the fluid built up happened She may need that looked at and possible removed via thoracentesis. If she is still concerned about pneumonia, she should come to the ER for eval. I will otherwise route this to scheduling pool for her to be evaluated via visit She would likely need to be seen urgently Thanks Jani Carver MD Called and spoke with pt, passed along Dr. Watson message above (from other phone encounter). Pt verbalized understanding. Pt stated after starting medrol pack breathing has been quite good. Due to pt living over an hour away she declined SARAH visit. Pt stated if symptoms get worst she would come to [place] ER. Pt wanted to know if Dr. Carver wanted any further imaging, or when should next imaging be scheduled. Will route to Dr. Carver. [facility] 05-05-2024 Telephone encounter Note Patient calling in as instructed below but she does not know why she needs an appointment. Please call patient to advise [facility] 05-04-2024 Telephone encounter Note Called and spoke with pt. Pt reported being very sob over last week and very lethargic. Yesterday she experienced an excruciating headache which usually proceeds her pneumonia. Had the pt concerned. Fever-negative Cough-negative Pulse ox- currently 92% without oxygen Pt using 2L oxygen as needed and at night. Noticing she desats very quickly with activity pt returns to baseline just as quick. Pt had appt with oncologist who ordered chest x-ray. X-ray showed new pleural effusion. Oncologist started pt on medrol pack. Pt wanted Dr. Carver's opinion on plan of care. Will route to provider. [facility] 05-04-2024 Miscellaneous Notes Called and spoke with pt. Pt reported being very sob over last week and very lethargic. Yesterday she experienced an excruciating headache which usually proceeds her pneumonia. Had the pt concerned. Fever-negative Cough-negative Pulse ox- currently 92% without oxygen Pt using 2L oxygen as needed and at night. Noticing she desats very quickly with activity pt returns to baseline just as quick. Pt had appt with oncologist who ordered chest x-ray. X-ray showed new pleural effusion. Oncologist started pt on medrol pack. Pt wanted Dr. Carver's opinion on plan of care. Will route to provider. Called and LVMx1 for pt. Instructed pt to call us back. Was hoping to triage pt and see how she was feeling over weekend. documented in this encounter [facility] 05-04-2024 Telephone encounter Note Pt informed of BRM message, once verified, using 2 patient identifiers. Patient agrees to notify pari mutuel ticket seller and denies any questions, needs or concerns at this time. Appointment verified. Jeny Nava RN [facility] 05-04-2024 Miscellaneous Notes Pt informed of BRM message, once verified, using 2 patient identifiers. Patient agrees to notify pari mutuel ticket seller and denies any questions, needs or concerns at this time. Appointment verified. Jeny Nava RN documented in this encounter [facility] 05-04-2024 History of Present illness Narrative Radiology Service Progress Note PATIENT NAME: Celso Weller DATE OF SERVICE: May 04, 2024 TIME: 10:48 AM PATIENT IDENTITY VERIFICATION COMPLETED USING TWO (2) IDENTIFIERS: Name and Date of confirmed by patient verbally. FALL SCREENING: Has the patient had 2 falls in the last year or 1 fall with injury or currently using an Ambulatory Assistive Device (Walker, Cane, Wheelchair, Crutches, etc.)? No PATIENT GENDER DATA: Assigned female at . status: : No status: NO. PATIENT RELEVANT IMPLANT DATA REVIEWED: Not Applicable PATIENT PRESENTS WITH AN IMPLANTABLE OR ATTACHED CHAIN SPLITTER: No RADIOLOGY DEPARTMENT: General X-ray: Exam(s) Completed: Chest X-Ray PERIPHERAL IV DATA: Not applicable SIGNED BY: RT Anaya(R) May 04, 2024 10:48 AM documented in this encounter [facility] 05-04-2024 Telephone encounter Note Called and LVMx1 for pt. Instructed pt to call us back. Was hoping to triage pt and see how she was feeling over weekend. [facility] 05-03-2024 History of Present illness Narrative PATIENT NAME: Celso Weller DATE: 05/04/2024 PRIMARY CARE PHYSICIAN: Bee Vail MD OTHER PHYSICIANS: Dr. Cyn Hernandez; Dr. Gurpreet Unger; Irene Han CNP ([facility] Pall Med), Dr. Jane Del Valle ([facility] Rad Onc), Dr. Jani Carver ([facility] Pulmonary), Dr Radha Gamez ([facility] Dermatology) Portions of this encounter note have been copied from the note from 11/11/2023 and has been updated where appropriate, and reflect my current medical decision making from today. CC: This is a 43 year old female with recurrent Hodgkin's disease, seen for scheduled follow-up. INTERIM HISTORY: Since the patient's last visit here she developed pneumonia in February 2024 and was briefly hospitalized at [facility]. She initially improved with antibiotics, but since then has had intermittent cough. Over the past week or so she has noticed increasing shortness of breath and her cough is now productive of thick green/yellow sputum. Occasional headaches. No fevers. Otherwise no significant medical changes. Other than her intermittent pulmonary symptoms she feels fairly well. MEDICATIONS: oxyCODONE IR (ROXICODONE) 10 mg tab Take 1 tablet by mouth every 8 hours as needed for pain for up to 30 days. ANORO ELLIPTA 62.5-25 mcg/actuation inhaler INHALE 1 INHALATION INSTRUCTED ONCE DAILY. cyclobenzaprine (FLEXERIL) 10 mg tablet TAKE 1 TABLET BY MOUTH THREE TIMES A DAY NEEDED FOR MUSCLE SPASM escitalopram oxalate (LEXAPRO) 10 mg tablet Take 1 tablet by mouth once daily. sodium chloride (NEBUSAL) 3 % nebulizer solution Use 4 mL via nebulizer two times a day. traZODone (DESYREL) 100 mg tablet Take 100 mg by mouth at bedtime as needed. AT BEDTIME. gabapentin (NEURONTIN) 300 mg capsule Take 2 capsules by mouth three times a day for 90 days. ipratropium-albuterol (DUONEB) 0.5 mg-3 mg(2.5 mg [...] mouth once daily Biotin 2,500 mcg cap fluocinonide (LIDEX) 0.05 % cream apply to affected area ON THE RIGHT HAND and legs TWICE A DAY levothyroxine (SYNTHROID) 75 mcg tablet Take 1 tablet by mouth once daily. triamcinolone acetonide (KENALOG) 0.1 % ointment APPLY TO THE AFFECTED AREA TWICE A DAY FOR 5 DAYS Vitamin B Comp and C No.3 (B COMPLEX PLUS VITAMIN C) 01-16-63-5-300 mg cap Take 1 tablet by mouth once daily. Lactobac no.41/Bifidobact no.7 (PROBIOTIC-10 ORAL) Take by mouth. atenolol (TENORMIN) 50 mg tablet take 1 tablet by mouth twice a day CHOLECALCIFEROL, VITAMIN D3, (VITAMIN D3 ORAL) Take 1,000 Units by mouth once daily. tolterodine ER (DETROL LA) 2 mg 24 hr capsule Take 2 mg by mouth once daily. ALLERGIES: Chlorhexidine and [...] SYSTEMS: As above PHYSICAL EXAM: Vitals: BP 115/74 Pulse 97 Temp 36.6 C (97.8 F) (Temporal) Resp 18 LMP 11/18/2012 SpO2 92% General appearance: Well appearing, alert, in no acute distress, well-hydrated, well nourished. Skin: Skin color, texture, turgor normal, no suspicious rashes or lesions. Head: Normal. Eyes: Anicteric sclera. Pupils are equally round and reactive to light. Extraocular movements are intact. Ears: Negative findings: external ears normal to inspection and palpation. Oropharynx: negative Neck: Supple, no adenopathy; thyroid symmetric, normal size Lymph Nodes: No submandibular, cervical, supraclavicular, axillary, or inguinal lymphadenopathy present. Back: No tenderness to palpation. Lungs: Diminished left base. Crackles left base. Heart: Negative. RRR without murmur, gallop, or rubs. No ectopy. Abdomen: Normal abdominal exam, Abdomen soft, non-tender. Bowel sounds normal. No masses, organomegaly. Rectal: Not done. Extremities: Extremities normal. No deformities, edema, or skin discoloration. Good capillary refill. Musculoskeletal: No joint swelling, deformity, or tenderness. Peripheral pulses: Normal. LABORATORY DATA: Hemoglobin (g/dL) Date Value 05/04/2024 14.3 04/05/2021 15.3 Hematocrit (%) Date Value 05/04/2024 43.1 04/05/2021 45.8 WBC (k/uL) Date Value 05/04/2024 7.60 04/05/2021 8.31 Platelet Count (k/uL) Date Value 05/04/2024 297 04/05/2021 277 RADIOLOGY/OTHER STUDIES: 05/04/2024 Chest x-ray IMPRESSION: New moderate left pleural effusion. 12/11/2023 PET scan IMPRESSION: Since 05/20/2023, RAMAKRISHNA DISEASE: * No metabolically active lymphadenopathy. EXTRANODAL DISEASE: * No metabolically active extranodal disease. ADDITIONAL FINDINGS: * Grossly stable left apical parenchymal irregular opacity likely representing chronic atelectasis/scarring. * Groundglass changes more prominent in the right upper lobe with no increased uptake likely representing infectious/inflammatory changes. 05/20/2023 PET scan IMPRESSION: HEAD/NECK: * No FDG avid neoplastic process. CHEST: * No FDG avid neoplastic process. * Small left pleural effusion; mildly increased in size in the interim. Otherwise no significant change in the appearance of the chest. ABDOMEN/PELVIS: * No FDG avid neoplastic process. MUSCULOSKELETAL: * No FDG avid neoplastic process. 04/02/2023 Chest x-ray ([facility]) Airspace opacities in the medial lungs could [...] PET scans have remained negative, most recently 12/11/2023. At this time will continue close observation. Return in 3 months for follow-up and labs. Unless new symptoms develop will restage again with a PET scan at 12 months (November 2024). 2. 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 3. Restrictive lung disease - ICD9: 518.89, ICD10: J98.4 As a result of the patient's extensive chemotherapy, stem cell transplant, and radiation therapy she has chronic restrictive lung disease. Continue management per [facility] pulmonary. Currently she complains of increasing shortness of breath. Per patient request she will be given a Medrol Dosepak. Chest x-ray reveals a small left pleural effusion. She will contact her pari mutuel ticket seller for follow-up. 4. History of pulmonary embolism and DVT (deep vein thrombosis) - ICD9: V12.51, ICD10: Z86.718 The patient had an incidental finding of a pulmonary embolism May 2012. On anticoagulation with Xarelto. 5. 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 Stable on current medications (Neurontin). Continue management per PCP. 6. Psoriasis - ICD9: 696.1, ICD10: L40.9 Diffuse psoriatic skin changes, possibly secondary to immunotherapy versus psoriasis. Continue management per [facility] dermatology. 7. Cancer associated pain - ICD9: 338.3, ICD10: G89.3 Generalized aches and pins, joel chest. Stable on current medications, continue management per [facility] palliative medicine. 8. Acquired hypothyroidism Stable on current medications. Continue management per PCP. 9. Tachycardia Stable on current medications. Continue management per PCP. 10. Chronic fatigue, anxiety and depression The patient has a long history of chronic fatigue, most likely related to her underlying disease, extensive prior treatment, and multiple medications. As a result she has secondary anxiety and depression. Continue management per PCP/[facility] palliative medicine. Ruperto Ledezma MD documented in this encounter [facility] 05-01-2024 Telephone encounter Note Keep as scheduled. Ellyn Manuel APRN.SEWAGE DISPOSAL ENGINEER [facility] Work Phone: 05-01-2024 Miscellaneous Notes Keep as scheduled. Ellyn Manuel APRN.SEWAGE DISPOSAL ENGINEER Patient cancelled her appointment for PET Scan and has not rescheduled. Patient has appointment with brm on Saturday for follow up pet and labs. Should we reschedule? documented in this encounter [facility] 05-01-2024 Telephone encounter Note Patient cancelled her appointment for PET Scan and has not rescheduled. Patient has appointment with brm on Saturday for follow up pet and labs. Should we reschedule? [facility] 04-24-2024 Telephone encounter Note PET scan has been cancelled. Kathryn Purvis [facility] 04-24-2024 Miscellaneous Notes PET scan has been cancelled. Kathryn Purvis Please cancel patient's PET scan scheduled for this month. I will see her as scheduled for her appointment. documented in this encounter [facility] 04-23-2024 Telephone encounter Note Please cancel patient's PET scan scheduled for this month. I will see her as scheduled for her appointment. [facility] Work Phone: 04-23-2024 History of Present illness Narrative PALLIATIVE MEDICINE PROGRESS NOTE SERVICE DATE: 04/23/2024 CHIEF COMPLAINT: follow up PERTINENT MEDICAL HISTORY: Celso Weller is a 43 yo female with a history of Hodgkin's Lymphoma diagnosed 01/16/2012 s/p autologous SCT (2013) and several other treatments due to recurrences in that time. She has undergone palliative radiation to spleen, liver, and lymph nodes (April 2020) per Dr. Del Valle, then to right mesenteric LN (March 2022). Course has been c/b pulmonary embolus (on AC), PJP pneumonia, herpes zoster. She received treatment with Keytruda per Dr. Abimael Hernandez (completed 05/01/22 - after 38 cycles). Imaging in July 2022 demonstrated a complete remission and is now under surveillance per Dr. Ledezma. PET/CT in 01/2023 and 05/2023 remained without evidence of disease. Palliative care is following for symptom control needs. Subjective Since last seen hospitalized x 1 02/29/24 for acute respiratory failure with hypoxia. Treated with steroids and antibiotics. 03/13/24 - RHC done. Allergy testing done - negative PCP increased Lexapro 2/2 anxiety (didn't tolerate dose increase 2/2 side effects) Sleep study at the end of the month. Using oxygen at night. Breathing is about the same. No longer short of breath all the time. Now just with exertion. A lot of headaches lately Some days really bad, with photophobia, using cool wash rag in bed. And nausea when bad Unilateral on left side behind eye with pulsating intermittently. A couple per month. Has tried APAP, caffeine. Oxycodone, nothing helps Eyes were checked last week. No weakness in extremities. No aura. No history of migraines. No changes in meds lately About the last 3-4 months. Continues to have generalized pain but more in her chest wall worse with exertion. Taking APAP and oxycodone as prescribed. No confusion, oversedation, myoclonus No motivation to do anything Doesn't feel excited about anything. Modified ESAS ([place] Symptom Assessment Scale) Information Provided By: Patient Pain: Mild Nausea: None Loss of Appetite: None Constipation: None Shortness of Breath: Mild Drowsiness: None Tiredness: Moderate Depression: Mild Anxiety: Moderate How you feel overall: Fair Objective ECOG PERFORMANCE STATUS: 0- Fully active, able to carry on all pre-disease performance w/o restriction. PHYSICAL EXAMINATION: Vital signs: LMP 11/18/2012 Last 1 Encounter Temp Readings: Date: Temp: Temp Src: 01/24/2024 35.6 C (96.1 F) Temporal Last 1 Encounter Resp Readings: Date: Resp: 01/24/2024 23 Last 1 Encounter Pulse Readings: Date: Pulse: 01/24/2024 100 Last 1 Encounter BP Readings: Date: BP: 01/24/2024 93/67 General Appearance: No apparent distress Lungs: unlabored effort, no conversational dyspnea Musculoskeletal: No edema and No gross deformity Neuro: Alert and oriented to time place and person Psych: Well groomed, Affect congruent with mood, and Good eye contact DATA: Diagnostic tests reviewed for today's visit: Most recent labs Estimated Creatinine Clearance: 138 mL/min (based on SCr of 0.73 mg/dL). [...] APPROPRIATELY filled. No suspicious activity was identified. 04/23/2024 by Irene Han APRN.SEWAGE DISPOSAL ENGINEER Urine Screen Lab Results Component Value Date [...] Urine pH, Pain Ocasio 6.3 02/24/2021 Specific [place],Ur Pain Ocasio 1.012 02/24/2021 [place],Ur 46 02/24/2021 Specimen Quality, Ur Pain Ocas[place] Specimen quality results within acceptable limits. 05/03/2014 Assessment & Plan (Z51.5) Encounter for palliative care (primary encounter diagnosis) - reviewed role of palliative care, contact info, and reasons to call. 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 Muscle cramps happening only intermittently. We have tapered medications to manage xerostomia and fatigue. - continue cyclobenzaprine 10 mg BID PRN for muscle cramps - s/p consult with rheumatology - no concern for psoriatic arthritis, imaging showing osteo. Continues to have chest pain due to radiation fibrosis with muscle spasms intermittently. - s/p pain management consultation 12/26/23: ordered Keppra - not starting due to fear of side effects. Was told that interventional procedures would need to be set up at [facility]. She is tabling this topic while working on getting SOB worked out. - will continue oxycodone 10 mg TID PRN (counseled on use of benzo and opioids together and increased risk of respiratory depression; narcan previously prescribed) - continue APAP 1000 mg TID - continue gabapentin 600 mg TID (self reported, taking 300/600/300 - advised to change to 300/300/600 to help target sleep) managed by PCP- did not tolerate transition to pregabalin - Voltaren ineffective - previously discussed duloxetine for co management of anxiety also - declined. now on lexapro per PCP (I27.20) Pulmonary hypertension (HCC) - s/p RHC and awaiting sleep study later this month (F43.22) Adjustment disorder with anxious mood - [...] is slowly improving. Less anxiety with stress. - does not tolerate dose escalations of Lexapro. Counseled on other options including Wellbutrin and Cymbalta. Recommended she reach out to PCP to discuss transition to Cymbalta. Medical Decision Making: Problems: Moderate: 2+ stable chronic illnesses Risk: High: Drug therapy requiring intensive monitoring Medical Decision Making Level: 4 - Moderate Some elements copied from my note on 02/27/24, the elements have been updated and all reflect current decision making from today, 04/23/2024. Next Visit: 3 Months in person Irene Han APRN.PEDRO April 23, 2024 1:02 PM This note may have been partially generated using the Gen[employer] voice recognition system. While every effort was made to correct voice recognition errors, kindly be aware that some errors may occasionally occur. documented in this encounter [facility] 04-20-2024 Telephone encounter Note Summary: Appointment Confirmation Called patient to confirm her iCPET with Dr. Lopez on 04/29 at 1pm. No answer, left SANDRINE. Carlo Medellin Clinical Cleaner Furniture [facility] [place] [facility] 04-20-2024 Miscellaneous Notes Summary: Appointment Confirmation Called patient to confirm her iCPET with Dr. Lopez on 04/29 at 1pm. No answer, left . Carlo Medellin Clinical Cleaner [employer]iture [facility] documented in this encounter [facility] 04-20-2024 Telephone encounter Note KENN 01/21/24 NOV Needs to be scheduled Requested Prescriptions Pending Prescriptions Disp Refills ANORO ELLIPTA 62.5-25 mcg/actuation inhaler [Pharmacy Med Name: ANORO ELLIPTA 62.5-25 MCG INH] 60 Each 1 Sig: INHALE 1 INHALATION INSTRUCTED ONCE DAILY. [facility] 04-20-2024 Miscellaneous Notes KENN 01/21/24 NOV Needs to be scheduled Requested Prescriptions Pending Prescriptions Disp Refills ANORO ELLIPTA 62.5-25 mcg/actuation inhaler [Pharmacy Med Name: ANORO ELLIPTA 62.5-25 MCG INH] 60 Each 1 Sig: INHALE 1 INHALATION INSTRUCTED ONCE DAILY. documented in this encounter [facility] 04-13-2024 Telephone encounter Note Pt called and made aware that Kylie approved handicap placard script. Pt's address verified and she is made aware that it could take up to 5-7 business days to receive handicap placard order via mail. Pt verbalized understating with no further questions. Pt's handicap placard script placed in wing mailer machine operator to be mailed to pt's home address listed on file. [facility] 04-13-2024 Miscellaneous Notes Pt called and made aware that Kylie approved handicap placard script. Pt's address verified and she is made aware that it could take up to 5-7 business days to receive handicap placard order via mail. Pt verbalized understating with no further questions. Pt's handicap placard script placed in wing mailer machine operator to be mailed to pt's home address listed on file. documented in this encounter [facility] 04-08-2024 History of Present illness Narrative Celso Weller returns to the office today and notes that she had pneumonia last month and went to the hospital. She had fever at that time. She has 12/23 pneumococcal subtiters protective. She had recent CXR at [facility] and was inpatient for one night on IV antibiotics and this was helpful for her. EXAM The patient appears comfortable in the office today. Lungs are clear to auscultation bilaterally. The oral mucosa is pink and healthy without any lesions or ulcers. The palate elevates in the midline. The nasal mucosa is pink and healthy. There is no epistaxis mucopus or nasal polyposis noted. The nasal septum is approximately in the midline. The skin is clear of any lesions, excoriations, or erythema. Skin testing in the office today was performed under direct physician supervision for common environmental allergens including cat, dog, mouse, dust mite, mold spores, tree, grass, weed, and ragweed and all of these tests were negative in the setting of a positive histamine control. I provided reassurance for the patient that no allergen avoidance measures are necessary for environmental allergens. IMPRESSION: chronic rhinitis - nasal ipratropium [facility] [place]. I explained that no allergen avoidance measures are necessary and we agreed to try nasal ipratropium for her chronic rhinitis. Pneumonia - I provided reassurance regarding her normal immunologic evaluation and suggested she follow up in the Pulmonary Clinic for further discussion of her recurrent episodes of pneumonia. Follow-up is arranged on an as needed basis. documented in this encounter [facility] 04-07-2024 Miscellaneous Notes Pharmacy requesting refills as follows: Last ordered 01/14/2024. Next scheduled follow up appointment 04/23/2024. Requested Prescriptions Pending Prescriptions Disp Refills cyclobenzaprine (FLEXERIL) 10 mg tablet [Pharmacy Med Name: CYCLOBENZAPRINE 10 MG TABLET] 90 tablet 2 Sig: TAKE 1 TABLET BY MOUTH THREE TIMES A DAY NEEDED FOR MUSCLE SPASM Kylie Mosher RN April 07, 2024 documented in this encounter [facility] 04-07-2024 Telephone encounter Note Pharmacy requesting refills as follows: Last ordered 01/14/2024. Next scheduled follow up appointment 04/23/2024. Requested Prescriptions Pending Prescriptions Disp Refills cyclobenzaprine (FLEXERIL) 10 mg tablet [Pharmacy Med Name: CYCLOBENZAPRINE 10 MG TABLET] 90 tablet 2 Sig: TAKE 1 TABLET BY MOUTH THREE TIMES A DAY NEEDED FOR MUSCLE SPASM Kylie Mosher RN April 07, 2024 [facility] 04-06-2024 Telephone encounter Note Please sign pended PET scan scheduled for 04/27/2024 Thank You! Edilma Song RN [facility] 04-06-2024 Miscellaneous Notes Please sign pended PET scan scheduled for 04/27/2024 Thank You! Edilma Song RN documented in this encounter [facility] 04-02-2024 Telephone encounter Note PDMP website checked and validated. All prescriptions have been APPROPRIATELY filled. No suspicious activity was identified. 04/02/2024 by Irene Han APRN.SEWAGE DISPOSAL ENGINEER Rx sent Irene Han APRN.SEWAGE DISPOSAL ENGINEER [facility] 04-02-2024 Miscellaneous Notes PDMP website checked and validated. All prescriptions have been APPROPRIATELY filled. No suspicious activity was identified. 04/02/2024 by Irene Han APRN.SEWAGE DISPOSAL ENGINEER Rx sent Irene Han APRN.SEWAGE DISPOSAL ENGINEER Patient Mycharts requesting refills as follows: Last ordered 03/05/2024. Next scheduled follow up appointment 04/23/2024. Requested Prescriptions Pending Prescriptions Disp Refills oxyCODONE IR (ROXICODONE) 10 mg tab 90 tablet 0 Sig: Take 1 tablet by mouth every 8 hours as needed for pain for up to 30 days. Kylie Mosher RN April 02, 2024 documented in this encounter [facility] 04-02-2024 Telephone encounter Note Patient Mycharts requesting refills as follows: Last ordered 03/05/2024. Next scheduled follow up appointment 04/23/2024. Requested Prescriptions Pending Prescriptions Disp Refills oxyCODONE IR (ROXICODONE) 10 mg tab 90 tablet 0 Sig: Take 1 tablet by mouth every 8 hours as needed for pain for up to 30 days. Kylie Mosher RN April 02, 2024 [facility] 04-01-2024 Miscellaneous Notes REPLACEMENT NEBULIZER DEVICE Nebulizer and supply given in office through [facility]. Patient given instructions on how to use and care for the nebulizer. [facility] with [facility] issues or concerns regarding their nebul[facility]. Patient verbalized understanding with no further questions. I faxed purchase agreement to [facility] as followed: - replacement written on new purchase agreement form - old device SN #: [id number] written on form - attached copy of previous purchase agreement from 04/19/2023 - attached Demographics/ Insurance information Patient was provided a nebulizer on 04/19/2023 at [facility] by Carole Ruano. documented in this encounter [facility] 04-01-2024 Telephone encounter Note REPLACEMENT NEBULIZER DEVICE Nebulizer and supply given in office through [facility]. Patient given instructions on how to use and care for the nebulizer. [facility] with any issues or concerns regarding their [facility]bulizer. Patient verbalized understanding with no further questions. I faxed purchase agreement to [facility] as followed: - replacement written on new purchase agreement form - old device SN #: [id number] written on form - attached copy of previous purchase agreement from 04/19/2023 - attached Demographics/ Insurance information [facility] 03-25-2024 Telephone encounter Note Patient was provided a nebulizer on 04/19/2023 at [facility] by Carole Ruano. [facility] 03-16-2024 Telephone encounter Note Summary: Care Coordination Called patient to schedule her iCPET for 04/29/[address] Lopez. Carlo Medellin Clinical Cleaner Furniture [facility] 03-16-2024 Miscellaneous Notes Summary: Care Coordination Called patient to schedule her iCPET for 04/29/[address] Lopez. Carlo Medellin Clinical Cleaner [employer] [facility] documented in this encounter [facility] 03-13-2024 Telephone encounter Note Rx sent [facility] 03-13-2024 Miscellaneous Notes Rx sent documented in this encounter [facility] 03-11-2024 History of Present illness Narrative Images from the original note were not included. Subjective Patient ID: Celso Weller is a 43 y.o. female who presents for Hospital Follow-up and Follow-up. 3 mo follow up Depression/anxiety On lexapro 10 mg Takes the ativan daily- some days anxiety is out of control She is getting frustrated/mood is low due to always being sick and missing out on things Insomnia On trazodone Helps some Thyroid Last checked 05/2023 Restrictive lung disease/asthma See below- recent hospital Neuropathy Stable manageable Daily headache Ordered CT- did not complete yet Frontal area Unchanged Sinuses are always draining Daily antihistamine , no flonase +mucinex Admitted to [facility] for Acute respiratory failure with hypoxia 02/29/2024 Had rocephin and steroids and discharged x 7 days with oral meds Doing better Scheduled for rt sided heart cath 03/13 Current Outpatient Medications on File Prior to Visit Medication Sig Dispense Refill atenolol (Tenormin) 50 MG tablet TAKE 1 TABLET BY MOUTH TWICE A DAY 180 tablet 3 baclofen (Lioresal) 5 MG tablet Take 5 mg by mouth in the morning and 5 mg in the evening and 5 mg before bedtime. dexlansoprazole (Dexilant) [address] capsule Take 1 capsule (30 mg) by mouth Daily Do not crush or chew. 90 capsule 2 escitalopram (Lexapro) 10 MG tablet Take 1 tablet (10 mg) by mouth Daily 30 tablet 5 fluocinonide (Lidex) 0.05 % cream Apply 1 application topically in the morning and 1 application before bedtime. gabapentin (Neurontin) 300 MG capsule Take 2 capsules (600 mg) by mouth in the morning and 2 capsules (600 mg) in the evening and 2 capsules (600 mg) before bedtime. 270 capsule 3 ipratropium-albuterol (Duo-Neb) 0.5-2.5 mg/3 mL nebulizer solution Take 3 mL by nebulization every 6 (six) hours ketoconazole (NIZOral) 2 % cream Apply 1 application topically 1 (one) time each day at the same time. levothyroxine (Synthroid, Levoxyl) 75 MCG tablet take 1 tablet by mouth every morning before meals 90 tablet 3 LORazepam (Ativan) 0.5 MG tablet Take 1 tablet (0.5 mg) by mouth 4 (four) times a day as needed for anxiety 120 tablet 2 oxyCODONE (Roxicodone) 10 MG immediate release tablet Take 10 mg by mouth every 4 (four) hours if needed. Probiotic Product (Probiotic Daily) capsule 1 (one) time each day at the same time. prochlorperazine (Compazine) 10 MG tablet Take 1 tablet (10 mg) by mouth every 6 (six) hours if needed for nausea 30 tablet 11 rivaroxaban (Xarelto) 10 MG tablet Take 1 tablet (10 mg) by mouth Daily 90 tablet 3 traZODone (Desyrel) 150 MG tablet TAKE 1 TABLET (150 MG) BY MOUTH NEEDED AT BEDTIME FOR SLEEP 90 tablet 1 No current facility-administered medications on file prior to visit. Allergies Allergen Reactions Chlorhexidine Unknown Sulfa Antibiotics Unknown I have reviewed and reconciled the history and medication list with the patient today. Review of Systems Constitutional: Negative for fatigue, fever and unexpected weight change. Respiratory: Negative for cough, chest tightness and wheezing. Cardiovascular: Negative for chest pain, palpitations and leg swelling. Gastrointestinal: Negative for abdominal pain, constipation, diarrhea, nausea and vomiting. Neurological: Positive for headaches. Psychiatric/Behavioral: Positive for sleep disturbance. Negative for suicidal ideas. The patient is nervous/anxious. Visit Vitals BP 92/68 (BP Location: Right arm, Patient Position: Sitting, BP Cuff Size: Large adult) Pulse 90 Ht 6' SpO2 95% BMI 29.84 kg/m Smoking Status Former BSA 2.25 m Objective Physical Exam Constitutional: General: She is not in acute distress. Appearance: Normal appearance. Cardiovascular: Rate and Rhythm: Normal rate and regular rhythm. Pulses: Normal pulses. Heart sounds: Normal heart sounds. No murmur heard. No friction rub. No gallop. Pulmonary: Effort: Pulmonary effort is normal. No respiratory distress. Breath sounds: Normal breath sounds. No wheezing, rhonchi or rales. Abdominal: General: Bowel sounds are normal. There is no distension. Palpations: Abdomen is soft. There is no mass. Tenderness: There is no abdominal tenderness. Musculoskeletal: General: Normal range of motion. Right lower leg: No edema. Left lower leg: No edema. Neurological: General: No focal deficit present. Mental Status: She is alert. Psychiatric: Mood and Affect: Mood normal. Behavior: Behavior normal. Thought Content: Thought content normal. Judgment: Judgment normal. Assessment/Plan 1. Asthma, unspecified asthma severity, unspecified whether complicated, unspecified whether persistent (CMS/HCC) (Primary) 2. Restrictive lung disease Improved Recent hospitalization- completed abx and steroids Follow up with pulmonary 3. Major depressive disorder, single episode, mild (HCC) (CMS/HCC) 4. Anxiety Worsening anxiety Takes ativan daily Will try to increase dose of lexapro and monitor Refill sent Can try 15 mg for a few days- week and then go to 20 mg - escitalopram (Lexapro) 20 MG tablet; Take 1 tablet (20 mg) by mouth Daily Dispense: 90 tablet; Refill: 3 - LORazepam (Ativan) 0.5 MG tablet; Take 1 tablet (0.5 mg) by mouth 4 (four) times a day as needed for anxiety Dispense: 120 tablet; Refill: 2 5. Primary insomnia On trazodone Continue plan monitor 6. Neuropathy Stable/manageable Continue plan monitor 7. Pulmonary hypertension (CMS/HCC) Having rt sided heart cath 03/13 Continue plan monitor 8. Nodular sclerosis Hodgkin lymphoma, unspecified site (CMS/HCC) Sees oncology Continue plan Monitor Sheila Lin NP We will continue to follow up with this patient on a continued marbleizer basis to monitor and treat the above listed problems as well as their other chronic illnesses as part of a longitudinal care plan documented in this encounter [facility] 03-11-2024 Instructions Sheila Lin NP - 03/11/2024 8:00 AM EST Add Flonase nasal spray daily for PND/sinuses Increase lexapro to 20 mg (can take 15mg 1-1/2 tab for a week or so first to gradually increase) documented in this encounter [facility] 03-05-2024 Miscellaneous Notes PDMP website checked and validated. All prescriptions have been APPROPRIATELY filled. No suspicious activity was identified. 03/05/2024 by Irene Han APRN.SEWAGE DISPOSAL ENGINEER Rx sent Irene Han APRN.SEWAGE DISPOSAL ENGINEER Patient requesting refills as follows: Last ordered 02/11/2024. Next scheduled follow up appointment 04/23/2024. Requested Prescriptions Pending Prescriptions Disp Refills oxyCODONE IR (ROXICODONE) 10 mg tab 90 tablet 0 Sig: Take 1 tablet by mouth every 8 hours as needed for pain for up to 30 days. Kylie Mosher RN March 05, 2024 documented in this encounter [facility] 03-05-2024 Telephone encounter Note PDMP website checked and validated. All prescriptions have been APPROPRIATELY filled. No suspicious activity was identified. 03/05/2024 by Irene Han APRN.SEWAGE DISPOSAL ENGINEER Rx sent Irene Han APRN.SEWAGE DISPOSAL ENGINEER [facility] 03-05-2024 Telephone encounter Note Patient requesting refills as follows: Last ordered 02/11/2024. Next scheduled follow up appointment 04/23/2024. Requested Prescriptions Pending Prescriptions Disp Refills oxyCODONE IR (ROXICODONE) 10 mg tab 90 tablet 0 Sig: Take 1 tablet by mouth every 8 hours as needed for pain for up to 30 days. Kylie Mosher RN March 05, 2024 [facility] 02-27-2024 History of Present illness Narrative PALLIATIVE MEDICINE PROGRESS NOTE SERVICE DATE: 02/27/[address] Virtually; I have communicated my name and active licensure. The patient's identity and physical location were verified at the time of this visit. The patient or their legal retail service representative has been informed of the risks and benefits of -- and alternatives to -- treatment through a remote evaluation and consents to proceed with the evaluation remotely. CHIEF COMPLAINT: follow up PERTINENT MEDICAL HISTORY: Celso Weller is a 43 yo female with a [...] received treatment with Keytruda per Dr. Abimael Hernandez (completed 05/01/22 - after 38 cycles). Imaging in July 2022 demonstrated a complete remission and is now under surveillance per Dr. Ledezma. PET/CT in 01/2023 and 05/2023 remained without evidence of disease. Palliative care is following for symptom control needs. Subjective Since last seen, no ED visits of hospitalizations Feels pretty good Breathing continues to be exacerbated intermittently. Sometimes waking in a panic in the middle of the night. Only when not wearing oxygen. Sometimes in the morning feeling very short of breath when doing her morning routine. She will check pulse ox and will be as low as 77% at times. Wears oxygen all day that day. This is happening about 2 times per month. Awaiting right heart cath and sleep study upcoming this month Pain in chest is the same. Controlled with current regimen Taking oxycodone same as prior. 10 mg TID. Helps keep her functional without confusion, oversedation, myoclonus. No constipation. Modified ESAS ([place] Symptom Assessment Scale) Information Provided By: Patient Pain: Moderate Nausea: None Loss of Appetite: None Constipation: None Shortness of Breath: Moderate Drowsiness: None Tiredness: Moderate Depression: None Anxiety: Mild How you feel overall: Good Objective ECOG PERFORMANCE STATUS: 1- Restricted in physically strenuous activity. Carries out light duty. PHYSICAL EXAMINATION: Vital signs: LMP 11/18/2012 Last 1 Encounter Temp Readings: Date: Temp: Temp Src: 12/18/2023 36.5 C (97.7 F) Oral Last 1 Encounter Resp Readings: Date: Resp: 12/20/2023 15 Last 1 Encounter Pulse Readings: Date: Pulse: 01/21/2024 99 Last 1 Encounter BP Readings: Date: BP: 01/21/2024 101/66 General Appearance: No apparent distress Lungs: unlabored effort, no conversational dyspnea Neuro: Alert and oriented to time place and person and no myoclonus Psych: Well groomed, Affect congruent with mood, and Good eye contact DATA: Diagnostic tests reviewed for today's visit: Most recent labs Estimated Creatinine Clearance: 131.1 mL/min (based on SCr of 0.73 mg/dL). [...] APPROPRIATELY filled. No suspicious activity was identified. 02/27/2024 by Irene Han APRN.SEWAGE DISPOSAL ENGINEER Urine Screen Lab Results Component Value Date [...] Urine pH, Pain [place] 6.3 02/24/2021 Specific [place],Ur Pain Ocasio 1.012 02/24/2021 Oxidants,Ur 46 02/24/2021 Specimen Quality, Ur Pain Ocasio Specimen quality results within acceptable limits. 05/03/2014 Assessment & Plan (Z51.5) Encounter for palliative care (primary encounter diagnosis) - reviewed role of palliative care, contact info, and reasons to call. 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 Muscle cramps happening only intermittently. We have tapered medications to manage xerostomia and fatigue. - continue cyclobenzaprine 10 mg BID PRN for muscle cramps - s/p consult with rheumatology - no concern for psoriatic arthritis, imaging showing osteo. Continues to have chest pain due to radiation fibrosis with muscle spasms intermittently. - s/p pain management consultation 12/26/23: ordered Keppra - not starting due to fear of side effects. Was told that interventional procedures would need to be set up at [facility]. She is tabling this topic while working on getting SOB worked out. - will continue oxycodone 10 mg TID PRN (counseled on use of benzo and opioids together and increased risk of respiratory depression; narcan previously prescribed) - continue APAP 1000 mg TID - continue gabapentin 600 mg TID (self reported, taking 300/600/300 - advised to change to 300/300/600 to help target sleep) managed by PCP- did not tolerate transition to pregabalin - Voltaren ineffective - previously discussed duloxetine for co management of anxiety also - declined. now on lexapro per PCP (I27.20) Pulmonary hypertension (HCC) - awaiting RHC and sleep study later this month (F43.22) Adjustment disorder with anxious mood - [...] is slowly improving. Less anxiety with stress. Medical Decision Making: Problems: Moderate: 2+ stable chronic illnesses Risk: High: Drug therapy requiring intensive monitoring Medical Decision Making Level: 4 - Moderate Some elements copied from my note on 12/26/23, the elements have been updated and all reflect current decision making from today, 02/27/2024. Next Visit: 6-8 Weeks in person Irene Han APRN.PEDRO February 27, 2024 2:19 PM This note may have been partially generated using the Gen110 voice recognition system. While every effort was made to correct voice recognition errors, kindly be aware that some errors may occasionally occur. documented in this encounter [facility] 02-27-2024 Telephone encounter Note Did reschedule appointment to a virtual appointment. And sent patient a MyChart message. Sarah Rojas February 27, 2024 8:55 AM [facility] 02-27-2024 Miscellaneous Notes Did reschedule appointment to a virtual appointment. And sent patient a MyChart message. Sarah Rojas February 27, 2024 8:55 AM documented in this encounter [facility] 02-24-2024 Telephone encounter Note Prescription filled 02/24/24. Closing this note [facility] 02-24-2024 Miscellaneous Notes Prescription filled 02/24/24. Closing this note Last OV: 01/21/2024 No f/u appt noted Patient phones requesting refills as follows: Requested Prescriptions Pending Prescriptions Disp Refills ANORO ELLIPTA 62.5-25 mcg/actuation inhaler [Pharmacy Med Name: ANORO ELLIPTA 62.5-25 MCG INH] 60 Each 1 Sig: INHALE 1 INHALATION INSTRUCTED ONCE DAILY. Please review and advise. Mitzi Han MA documented in this encounter [facility] 02-24-2024 Telephone encounter Note Last OV: 01/21/2024 No f/u appt noted Patient phones requesting refills as follows: Requested Prescriptions Pending Prescriptions Disp Refills ANORO ELLIPTA 62.5-25 mcg/actuation inhaler [Pharmacy Med Name: ANORO ELLIPTA 62.5-25 MCG INH] 60 Each 1 Sig: INHALE 1 INHALATION INSTRUCTED ONCE DAILY. Please review and advise. Mitzi Han MA [facility] 02-14-2024 History of Present illness Narrative February 14, 2024 Standing PSG Orders signed in the last 90 days None Future PSG Orders signed in the last 90 days Ordered Auth. provider POLYSOMNOGRAM (PSG) [[id number]] 01/21/24 Glendy Russ DO Assoc. diagnoses: Pulmonary hypertension (HCC) [I27.20] Q: Indications - Select All That Apply: A: Obstructive sleep apnea Q: STOP-BANG conditions - Select All That Apply: A: SNORING that is loud or disruptive A2: TIREDNESS, fatigue or sleepiness during the day Q: Comorbidities: A: Moderate/Severe Pulmonary disease Q: Specify Pulmonary Disease: A: Pulmonary hypertension Q: Is the patient non-ambulatory or will they be accompanied by a caregiver?: A: No Q: Current use of supplemental oxygen during sleep period?: A: No Q: Add supplemental oxygen if needed per sleep lab policy?: A: Yes Q: Is this a repeat Sleep Study?: A: No All Prior Sleep Studies (past 365 days) 01/21/2024 14:17 Sleep Studies POLYSOMNOGRAM (PSG) POLYSOMNOGRAM (PSG) Order Status: Ordered, Future Expires: 01/20/25 BMI Readings from Last 2 Encounters: 01/15/24 : 30.56 kg/m 01/03/24 : 29.84 kg/m PAST MEDICAL HISTORY Diagnosis Date ASCUS favor [...] human papillomavirus (HPV) DNA test positive 09/28/2014 The medical record was reviewed to determine if the proposed sleep study conforms to the AASM Practice Parameters for the Indications for Polysomnography and Related Procedures, or if the sleep study is indicated for other reasons. Indications for study: BRIAN suspected with comorbid medical or sleep disorders: [id number] pulmonary disease Sleep study to be performed: Split Study-Polysomnogram with PAP titration Special instructions: Split night study if AHI > 15. Start with 5 cmH2O then titrate per protocol Target REM/supine sleep Add EtCO2 or Transcutaneous CO2 if available HX of Pulmonary HTN Christiananaun Mominorelli Tech Sleep Medicine Staff Note: I have read the above protocol, edited as needed, and agree to the plan. Rosario Rasmussen DO, MASHA 2:21 PM, 02/14/2024 February 11, 2024 An order has been received for Polysomnogram (PSG) from Glendy Ames a B. [facility] Staff. Visit prep complete. Comments :No The sleep study is scheduled for 03/20. Insurance: Payor: AETNA MEDICARE / Plan: A[employer] MEDICARE ASSURE HMO D SNP / Product Type: Medicare / Payer/Plan Subscr Sex Relation Sub. Ins. ID Effective Group Num 1. [employer] MEDICAR* CELSO WELLER 1980 Female Self [id number] 02[birth year]18/23 [id number] [address] 2. MEDICAID [place] -* CELSO WELLER R 1980 Female Self [id number] 02[birth year]20 [address] Nova Hernandez documented in this encounter [facility] 02-11-2024 Telephone encounter Note The following approved medication requests have been transmitted electronically. Requested Prescriptions Signed Prescriptions Disp Refills oxyCODONE IR (ROXICODONE) 10 mg tab 90 tablet 0 Sig: Take 1 tablet by mouth every 8 hours as needed for pain for up to 30 days. Authorizing Provider: IRENE HAN RN [facility] 02-11-2024 Miscellaneous Notes The following approved medication requests have been transmitted electronically. Requested Prescriptions Signed Prescriptions Disp Refills oxyCODONE IR (ROXICODONE) 10 mg tab 90 tablet 0 Sig: Take 1 tablet by mouth every 8 hours as needed for pain for up to 30 days. Authorizing Provider: IRENE HAN RN PDMP website checked and validated. All prescriptions have been APPROPRIATELY filled. No suspicious activity was identified. 02/11/2024 by Irene Han APRN.SEWAGE DISPOSAL ENGINEER Rx sent Irene Han APRN.SEWAGE DISPOSAL ENGINEER Patient phones requesting refills as follows: Last ordered 01/14/24 Last visit on 12/26/23 Future appt 02/27/24 Requested Prescriptions Pending Prescriptions Disp Refills oxyCODONE IR (ROXICODONE) 10 mg tab 90 tablet 0 Sig: Take 1 tablet by mouth every 8 hours as needed for pain for up to 30 days. Please review and advise. Flori Cartagena RN documented in this encounter [facility] 02-11-2024 Telephone encounter Note [facility] website checked and validated. All prescriptions have been APPROPRIATELY filled. No suspicious activity was identified. 02/11/2024 by Irene Han APRN.SEWAGE DISPOSAL ENGINEER Rx sent Irene Han APRN.SEWAGE DISPOSAL ENGINEER [facility] 02-11-2024 Telephone encounter Note Patient phones requesting refills as follows: Last ordered 01/14/24 Last visit on 12/26/23 Future appt 02/27/24 Requested Prescriptions Pending Prescriptions Disp Refills oxyCODONE IR (ROXICODONE) 10 mg tab 90 tablet 0 Sig: Take 1 tablet by mouth every 8 hours as needed for pain for up to 30 days. Please review and advise. Flori Cartagena RN [facility] 01-24-2024 Telephone encounter Note Received message to schedule RHC. Contacted patient and they elected SaturdayMarch 13. Will submit instructions via my chart. Thank You, Nia Salmeron [facility] 01-24-2024 Miscellaneous Notes Received message to schedule RHC. Contacted patient and they elected SaturdayMarch 13. Will submit instructions via my chart. Thank You, Nia Salmeron documented in this encounter [facility] 01-21-2024 History of Present illness Narrative Images from the original note were not included. PULMONARY HYPERTENSION CLINIC Initial Visit January 21, 2024 I had the pleasure of seeing Celso Weller in consultation at the request of Jani Carver for Pulmonary Hypertension. Summary of this visit and my recommendations will be relayed to the referring physician by way of electronic communication or by mail. PCP: Bee Vail MD Referring Provider: Jani Carver Subjective: I had the pleasure of seeing Celso Weller in consultation for continued evaluation and and management of Pulmonary Hypertension. Summary of this visit and my recommendations will be relayed to the referring physician and primary care physician by way of electronic communication or by mail. HPI: Ms. Weller is a 43 year old female with a PMH of nodular sclerosing HL s/p mediastinal irradiation, extensive systemic therapy and ASCT (2013. 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 Celso has had a very difficult year thus start with hospitalization for pneumonia in March 2023. She has had recurrent pneumonia and hospitalization (x2) which has confounded her symptoms and overall recovery - but in between time she did feel periods of improvement though neer truly approximating her baseline. As of late (maybe the last month) she does note lower extremity edema, ?mild orthopnea, (-) PND. Denies abdominal swelling/bloating/distension or early satiety, lightheadedness, dizziness, syncope. She denies history of hospitalizations for heart failure. She uses NaCL/Duoneb/PEP valve for airway clearance at least once per day without much sputum production. QUESTIONS SURROUNDING PULMONARY HYPERTENSION RISK: Prior exposure to anorexigens methamphetamines or other implicated toxins/drugs (ie dasatanib, fenfluramine, methamphetamines, cocaine, mitomycin, rapeseed oil, cocaine, CyC, IFN, leflunomide, alkylating agents bevacizumab, bortezomib, cocaine, antivirals, ponatinib, [place]elchina wort) No H/O Venous Thromboembolism or PE? No Prior liver disease? No Prior HIV/Hepatitis B or C risk? No H/o splenectomy? Indwelling Catheter/Lines? No Prior thyroid disease? No Family h/o PAH? No Raynaud's symptoms? No or other autoimmune features (arthralgia, skin lesions, rashes, dysphagia)? No History of pertinent cardiopulmonary disease? History/symptoms related to sleep disturbance (BRIAN, CSA, nocturnal hypoxemia)? No, +daytime somnolence, + lethargy Additional History: MEDICATIONS: cyclobenzaprine (FLEXERIL) 10 mg tablet Take 1 tablet by mouth three times a day as needed for muscle spasm. oxyCODONE IR (ROXICODONE) 10 mg tab Take 1 tablet by mouth every 8 hours as needed for pain for up to 30 days. escitalopram oxalate (LEXAPRO) 10 mg tablet Take 1 tablet by mouth once daily. sodium chloride (NEBUSAL) 3 % nebulizer solution Use 4 mL via nebulizer two times a day. traZODone (DESYREL) 100 mg tablet Take 100 mg by mouth at bedtime as needed. AT BEDTIME. tolterodine ER (DETROL LA) 2 mg 24 hr capsule Take 2 mg by mouth once daily. gabapentin (NEURONTIN) 300 mg capsule Take 2 capsules by mouth three times a day for 90 days. ipratropium-albuterol (DUONEB) 0.5 mg-3 mg(2.5 mg [...] mouth once daily Biotin 2,500 mcg cap fluocinonide (LIDEX) 0.05 % cream apply to affected area ON THE RIGHT HAND and legs TWICE A DAY levothyroxine (SYNTHROID) 75 mcg tablet Take 1 tablet by mouth once daily. triamcinolone acetonide (KENALOG) 0.1 % ointment APPLY TO THE AFFECTED AREA TWICE A DAY FOR 5 DAYS Vitamin B Comp and C No.3 (B COMPLEX PLUS VITAMIN C) 50-15-70-5-300 mg cap Take 1 tablet by mouth once daily. Lactobac no.41/Bifidobact no.7 (PROBIOTIC-10 ORAL) Take by mouth. atenolol (TENORMIN) 50 mg tablet take 1 tablet by mouth twice a day CHOLECALCIFEROL, VITAMIN D3, (VITAMIN D3 ORAL) Take 1,000 Units by mouth once daily. ALLERGIES: ALLERGIES Allergen Reactions Chlorhexidine Itching Severe skin irritation. Had used for central line care Sulfa (Sulfonamide * Rash HISTORY: PAST MEDICAL HISTORY Diagnosis Date ASCUS [...] Sclerosis Mother Coronary Artery Disease Maternal Grandfather OR age 36 Coronary Artery Disease Paternal Grandfather 60's Multiple Sclerosis Maternal Grandmother Social History Tobacco Use Smoking status: Former Current packs/day: 0.00 Types: Cigarettes Start date: 01/17/2002 Quit date: 01/18/2012 Years since quittin.0 Passive exposure: Past Smokeless tobacco: Never Vaping Use Vaping status: Never Used Substance Use Topics Alcohol use: Yes Alcohol/week: 0.0 standard drinks of alcohol Comment: 2 drinks per month Drug use: No Objective: PHYSICAL EXAM: VITALS: LMP 11/18/2012 General appearance: Alert, NAD Ears/Nose/Mouth/Throat: Non-cyanotic lips. Teeth normal. Neck: Supple neck. Midline trachea. JVD not present at 45 degrees of incline. Respiratory: Lungs clear to auscultation. No wheezing, rhonchi, rales. Diaphragmatic excursion and chest wall symmetry appear equal and normal. No accessory muscle use. Cardiovascular: normal rate, reg rhythm, Non-displaced PMI. No parasternal heave. Abdomen/GI: Abdomen soft, non-tender, non-distended. No masses or organomegaly noted. Liver nonpulsitile. No hepatojugular reflux. Extremities: No clubbing or cyanosis of fingers. No cracking, pitting or petechiae on fingers. Capillary refill <2 sec bilaterally. No peripheral edema noted in the lower extremities. Upper extremities appear normal. Normal temperature of all 4 extremities. Musculoskeletal: Spine shows no kyphosis or scoliosis. Muscles show no clear abnormality. Skin: No petechiae, ecchymoses, rash noted. Neuro: Oriented X 3. Normal mood and affect. DATA: Diagnostic tests reviewed for today's visit, films/specimens were personally reviewed by me: Most recent lab and imaging results Labs: CAL CAL (no units) Date Value 03/24/2018 Negative CAL by EIA, Qual (no units) Date Value 11/03/2019 Negative CAL by EIA (OD Ratio) Date Value 11/03/2019 0.3 Rheumatoid Factor Rheumatoid Factor (IU/mL) Date Value 11/03/2019 <10 TSH TSH Date Value 06/10/2023 0.445 mIU/L 04/05/2021 2.150 uU/mL HIV HIV 1 & 2 Ab (EIA) (no units) Date Value 01/28/2012 Non Reactive HIV 12 Combo (Ag/Ab) (no units) Date Value 01/03/2016 Non Reactive ] Hepatitis B Surface Antigen HBsAg (no units) Date Value 03/24/2018 Negative Hepatitis C Hep C Antibody IA (no units) Date Value 03/24/2018 Negative NT PRO BNP Lab Results Component Value Date PBNP 643 (H) 01/06/2024 Chemistries Lab Results Component Value Date NA 142 01/06/2024 NA 142 12/20/2023 NA 144 12/19/2023 K 4.0 01/06/2024 K 4.0 12/20/2023 K 3.5 (L) 12/19/2023 CHLOR 103 01/06/2024 CHLOR 103 12/20/2023 CHLOR 109 (H) 12/19/2023 CO2 30 01/06/2024 CO2 30 12/20/2023 CO2 27 12/19/2023 BUN 7 01/06/2024 BUN 13 12/20/2023 BUN 10 12/19/2023 CREAT 0.73 01/06/2024 CREAT 0.75 12/20/2023 CREAT 0.63 12/19/2023 EGFRAA >60 04/05/2021 EGFRAA >60 03/28/2021 EGFRAA >60 03/07/2021 EGFROTH 106 01/06/2024 EGFROTH 103 12/20/2023 EGFROTH 114 12/19/2023 GLUC 91 01/06/2024 GLUC 106 (H) 12/20/2023 GLUC 106 (H) 12/19/2023 ANION 9 01/06/2024 ANION 9 12/20/2023 ANION 8 12/19/2023 Liver Function Lab Results Component Value Date AST 39 (H) 01/06/2024 AST 45 (H) 12/18/2023 AST 28 11/21/2023 ALT 38 01/06/2024 ALT 46 (H) 12/18/2023 ALT 39 (H) 11/21/2023 ALKPHOS 56 01/06/2024 ALKPHOS 71 12/18/2023 ALKPHOS 57 11/21/2023 TBILI 0.5 01/06/2024 TBILI 0.2 12/18/2023 TBILI 0.4 11/21/2023 CBC Lab Results Component Value Date HB 14.4 12/20/2023 HB 13.6 12/19/2023 HB 14.1 12/18/2023 HCT 44.7 12/20/2023 HCT 40.5 12/19/2023 HCT 43.2 12/18/2023 WBC 7.52 12/20/2023 WBC 6.04 12/19/2023 WBC 6.55 12/18/2023 PLT 325 12/20/2023 PLT 285 12/19/2023 PLT 340 12/18/2023 Latest Reference Range & Units Most Recent 01/06/24 15:03 NT Pro BNP <125 pg/mL 643 (H) 01/06/24 15:03 643 (H) Risk Stratification: REVEAL 2.0 Risk Score (Benza R et al. Chest 2019;156:2, 323-337) Date Score Therapy - - - Interpretation: Low 0-6: <5% risk of one year mortality Intermediate 7-8: 5-10% risk of one year mortality High -9 or above: >10% risk of one year mortality COMPERA 2.0- Four Stratum Risk Assessment (MM Ritika et al. ERJ 2021; [id number]) Date Risk Score Therapy - - - Interpretation: If at first follow up the Compera 2 average risk score is : -Low (score of 1-1.49)- predicts 98% one year survival, 92% three year survival and 83% five year survival -Intermediate-low (score of 1.5-2.49)-predicts 97% one year survival; 82% three year survival and 67% five year survival -Intermediate-high (score of 2.5-3.49): predicts 92% one year survival, 63% three year survival and 46% five year survival -High (above 3.5): predicts 78% one year survival, 48% three year survival and 33% five year survival Assessment and Plan: Celso Weller is a 43 year old female with 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 She has undergone extensive testing to date which includes low probability VQ (ventilation defects noted with matched perfusion diffusely throughout L>R james), PFT (suggestive of restriction, with moderately severe reduction in DLCO with reduced VA and normal LVA suggests loss of alveolar capillary structure or volume). ABG shows pH 7.36/45/[address] on RA. NM PET CT from 11/2023 shows show low lung volumes with atelectasis, RUL non-avid ground glass opacities CAL negative. HIV nonreactive in 2011. TSH wnl on therapy. She has had some pertinent drug exposures (busulfan > adrimaycin) but the latency between these exposures to now makes this less likely. Echocardiogram shows MSN of RVOT doppler envelope however otherwise normal RA/RV size and shape, RV systolic function is low-normal (TAPSE 1.7, RVS' 10) estimated RVSP 52 (assuming RAP 3). IVS is in normal position without flattening. This occurs also in the context of +2 MR, though to this end there is normal LA/LV size, normal LV systolic function and only mild LVH. She is limited by exercise intolerance (WHO FC II/III) with reduced 6MWD (390m achieved which is 67% predicted with exercise induced desaturation and poor heart rate recovery), In Summary based on echocardiography, reduced DLCO - Celso has at least an intermediate to high pre-test probability of PH. Unclear mechanism at this time. RECOMMENDATION: - RHC in February per patient preference to clarify hemodynamics - PSG given daytime somnolence / fatigue and newly diagnosed PH All questions were answered to Celso Weller's satisfaction, Celso Weller verbalizes understanding and agrees with treatment plan and was encouraged to contact me with questions. All documentation above reflects my independent exam and review. I saw and examined this patient myself. Pertinent portions of the HPI, ROS, objective findings and assessment/plan may have been copied from my previous clinical documentation however pertinent changes have been made and documented today. Glendy Russ DO Respiratory [facility] January 202:46 PM documented in this encounter [facility] 01-15-2024 History of Present illness Narrative RADIOLOGY SERVICE PROGRESS NOTE SERVICE DATE: 01/15/2024 SERVICE TIME: 10:57 AM PATIENT IDENTITY VERIFICATION COMPLETED USING TWO (2) STANDARD IDENTIFIERS: Name and Date of confirmed by patient verbally FALL SCREENING: Has the patient had 2 falls in the last year or 1 fall with injury or currently using an Ambulatory Assistive Device (Walker, Cane, Wheelchair, Crutches, etc.)? No PATIENT GENDER DATA: .female : No ALLERGIES: Reviewed and unchanged MEDICATIONS REVIEWED: No PATIENT RELEVANT IMPLANT DATA REVIEWED: Not Applicable PATIENT PRESENTS WITH AN IMPLANTABLE OR ATTACHED CHAIN SPLITTER: No CREATININE: Creatinine Date Value Ref Range Status 01/06/2024 0.73 0.58 - 0.96 mg/dL Final 12/20/2023 0.75 0.58 - 0.96 mg/dL Final 12/19/2023 0.63 0.58 - 0.96 mg/dL Final Estimated Glomerular Filtration Rate Date Value Ref Range Status 01/06/2024 106 >=60 mL/min/1.73m Final Comment: Estimated Glomerular Filtration Rate (eGFR) [...] Status 04/05/2021 >60 Final P.O.C.T. RESULTS: N/A January 15, [address] PERFORMED: No IV SITE: Ambulatory: A peripheral IV was started in the Right antecubital site with a Angio cath: 22 gauge. POST EXAM PIV STATUS: Discontinued PROCEDURE TYPE: VQ Scan: 0.8 mCi of Tc99m DTPA was inhaled. 5.3 mCi of Tc99m MAA was administered IV. ADMINISTRATION TIME: 10:46 PATIENT DISCHARGED TO: Ambulatory patient, left [place] department area. Is this a therapy: No A Diagnostic radioactive procedure has taken place, with no further precautions necessary other than routine body substance precautions. More information regarding radiation safety can be found using this link: [email or web address] [email or web address] SIGNATURE: DIMA Rushing) PATIENT NAME: Celso Weller DATE: January 15, 2024 TIME: 10:57 AM PAGER/CONTACT #: documented in this encounter [facility] 01-15-2024 Note HNO ID: [id number] Author: RADHA HAHN RT (R) Service: Nuclear Medicine Author Type: Technologist Type: Progress Notes Filed: 01/15/2024 11:10 Note Text: RADIOLOGY SERVICE PROGRESS NOTE SERVICE DATE: 01/15/2024 SERVICE TIME: 10:57 AM PATIENT IDENTITY VERIFICATION COMPLETED USING TWO (2) STANDARD IDENTIFIERS: Name and Date of confirmed by patient verbally FALL SCREENING: Has the patient had 2 falls in the last year or 1 fall with injury or currently using an Ambulatory Assistive Device (Walker, Cane, Wheelchair, Crutches, etc.)? No PATIENT GENDER DATA: .female : No ALLERGIES: Reviewed and unchanged MEDICATIONS REVIEWED: No PATIENT RELEVANT IMPLANT DATA REVIEWED: Not Applicable PATIENT PRESENTS WITH AN IMPLANTABLE OR ATTACHED CHAIN SPLITTER: No CREATININE: Creatinine Date Value Ref Range Status 01/06/2024 0.73 0.58 - 0.96 mg/dL Final 12/20/2023 0.75 0.58 - 0.96 mg/dL Final 12/19/2023 0.63 0.58 - 0.96 mg/dL Final Estimated Glomerular Filtration Rate Date Value Ref Range Status 01/06/2024 106 >=60 mL/min/1.73m? Final Comment: Estimated Glomerular Filtration [...] Status 04/05/2021 >60 Final P.O.C.T. RESULTS: N/A January 15, [address] PERFORMED: No IV SITE: Ambulatory: A peripheral IV was started in the Right antecubital site with a Angio cath: 22 gauge. POST EXAM PIV STATUS: Discontinued PROCEDURE TYPE: VQ Scan: 0.8 mCi of Tc99m DTPA was inhaled. 5.3 mCi of Tc99m MAA was administered IV. ADMINISTRATION TIME: 10:46 PATIENT DISCHARGED TO: Ambulatory patient, left [place] department area. Is this a therapy: No A Diagnostic radioactive procedure has taken place, with no further precautions necessary other than routine body substance precautions. More information regarding radiation safety can be found using this link: [email or web address] [email or web address] 20Diagnostic%20Nuclear%20Medicine [email or web address] SIGNATURE: RT Сергей(R) PATIENT NAME: Celso Weller DATE: January 15, 2024 TIME: 10:57 AM PAGER/CONTACT #: [facility] 01-15-2024 History of Present illness Narrative PULM FUNCTION: Provider: Jani Carver MD Spirometry: 1 DLCO: 1 AB Oximetry - Ambulation: 1 6 MW: 1 documented in this encounter [facility] 01-15-2024 Procedure note Associated Ord er(s): OXIMETRY WITH AMBULATION RESPIRATORY THERAPY OXIMETRY WITH AMBULATION Oximetry with Ambulation Test for This Encounter O2 Device O2 Adapter NC O2 Flow SpO2% HR Activity Ft Walked (ft) Time (min) Avg Speed (MPH) R/A 98 86 Resting R/A 91 110 Walking, usual pace 555 3 2.1 R/A 98 94 Resting R/A 90 110 Walking, usual pace 640 3 2.42 General Information Pulse Oximetry Site Total Time Spent Walking Assistance/O2 Supply Carrier Forehead 20 None NAME: Perla Powell RRT PATIENT NAME: Celso Weller DATE: January 15, 2024 TIME: 10:19 AM Comment: [facility] 01-15-2024 Procedure note Associated Ord er(s): OXIMETRY WITH AMBULATION RESPIRATORY THERAPY OXIMETRY WITH AMBULATION Oximetry with Ambulation Test for This Encounter O2 Device O2 Adapter NC O2 Flow SpO2% HR Activity Ft Walked (ft) Time (min) Avg Speed (MPH) R/A 98 86 Resting R/A 91 110 Walking, usual pace 555 3 2.1 R/A 98 94 Resting R/A 90 110 Walking, usual pace 640 3 2.42 General Information Pulse Oximetry Site Total Time Spent Walking Assistance/O2 Supply Carrier Forehead 20 None NAME: Perla Powell RRT PATIENT NAME: Celso Weller DATE: January 15, 2024 TIME: 10:19 AM Comment: documented in this encounter [facility] 01-14-2024 Telephone encounter Note PDMP website checked and validated. All prescriptions have been APPROPRIATELY filled. No suspicious activity was identified. 01/14/2024 by Irene Han APRN.SEWAGE DISPOSAL ENGINEER Rx sent Ireen Han APRN.SEWAGE DISPOSAL ENGINEER [facility] 01-14-2024 Miscellaneous Notes PDMP website checked and validated. All prescriptions have been APPROPRIATELY filled. No suspicious activity was identified. 01/14/2024 by Irene Han APRN.SEWAGE DISPOSAL ENGINEER Rx sent Irene Han APRN.SEWAGE DISPOSAL ENGINEER Patient Mycharts requesting refills as follows: Last ordered 12/16/2023. Next scheduled follow up appointment 02/27/2024. Requested Prescriptions Pending Prescriptions Disp Refills oxyCODONE IR (ROXICODONE) 10 mg tab 60 tablet 0 Sig: Take 1 tablet by mouth two times a day as needed for pain for up to 30 days. Kylie Mosher RN January 14, 2024 documented in this encounter [facility] 01-14-2024 Telephone encounter Note Spoke with patient confirming arrival of 10:45. Explained test, length, no prep and confirmed / status. Patient is schedule in the morning at [facility] for pulmonary appointments and will come down as soon as she is done to see if we can do sooner than appointment for VQ. [facility] 01-14-2024 Miscellaneous Notes Spoke with patient confirming arrival of 10:45. Explained test, length, no prep and confirmed / status. Patient is schedule in the morning at [facility] for pulmonary appointments and will come down as soon as she is done to see if we can do sooner than appointment for VQ. documented in this encounter [facility] 01-14-2024 Telephone encounter Note Please let patient know Echo still shows moderate degree of pulmonary hypertension There is mild valvular disease d in the tricuspid valve as well as aortic valve. Your heart is showing signs of left ventricular hypertrophy which means the muscle is thicker than normal/ Even though there are no significant changes compared to the last study about 10 months ago, I would recommend proceeding with a right heart catheterization to ensure that the pulmonary pressures are accurately reflected My colleague from [place] has reviewed your case as well and the office will reach out to you with an appointment Please let me know if you have any additional questions Thank you Jani Carver MD [facility] 01-14-2024 Miscellaneous Notes Please let patient know Echo still shows moderate degree of pulmonary hypertension There is mild valvular disease d in the tricuspid valve as well as aortic valve. Your heart is showing signs of left ventricular hypertrophy which means the muscle is thicker than normal/ Even though there are no significant changes compared to the last study about 10 months ago, I would recommend proceeding with a right heart catheterization to ensure that the pulmonary pressures are accurately reflected My colleague from [place] has reviewed your case as well and the office will reach out to you with an appointment Please let me know if you have any additional questions Thank you Jani Carver MD Plan: 01/06/24 We have ruled out acute infectious etiology as a reason for the pulmonary infiltrates With new onset B/L pleural effusions and known Pulmonary hypertension - I suspect if PH is playing a role Echo is ordered, we will try to move it up to first available She has new pleural effusions. We discussed trial of a diuretic however she has had intolerance in the past I will check her proBNP BMP and magnesium levels today I will also reach out to my pulmonary hypertension colleague to see if ph is playing a role with her symptoms she did have evidence of moderate pulm hypertension on prior echo in February 2023 Other possibilities include ILD/colitis obliterans/fibrosing mediastinitis I have advised her to use supplemental oxygen 2 L/min all the time Expedite echocardiogram, PH clinic evaluation We will discuss PFT results upon completion next week POSSIBLE diuretic trial documented in this encounter [facility] 01-14-2024 Telephone encounter Note Patient Mycharts requesting refills as follows: Last ordered 12/16/2023. Next scheduled follow up appointment 02/27/2024. Requested Prescriptions Pending Prescriptions Disp Refills oxyCODONE IR (ROXICODONE) 10 mg tab 60 tablet 0 Sig: Take 1 tablet by mouth two times a day as needed for pain for up to 30 days. Kylie Mosher RN January 14, 2024 [facility] 01-14-2024 Telephone encounter Note Patient Mycharts requesting refills as follows: Last ordered 12/09/2023. Next scheduled follow up appointment 02/27/2024. Requested Prescriptions Pending Prescriptions Disp Refills cyclobenzaprine (FLEXERIL) 10 mg tablet 60 tablet 0 Sig: Take 1 tablet by mouth two times a day as needed for muscle spasm. Kylie Mosher RN January 14, 2024 [facility] 01-14-2024 Miscellaneous Notes Patient Mycharts requesting refills as follows: Last ordered 12/09/2023. Next scheduled follow up appointment 02/27/2024. Requested Prescriptions Pending Prescriptions Disp Refills cyclobenzaprine (FLEXERIL) 10 mg tablet 60 tablet 0 Sig: Take 1 tablet by mouth two times a day as needed for muscle spasm. Kylie Mosher RN January 14, 2024 documented in this encounter [facility] 01-08-2024 Telephone encounter Note Plan: 01/06/24 We have ruled out acute infectious etiology as a reason for the pulmonary infiltrates With new onset B/L pleural effusions and known Pulmonary hypertension - I suspect if PH is playing a role Echo is ordered, we will try to move it up to first available She has new pleural effusions. We discussed trial of a diuretic however she has had intolerance in the past I will check her proBNP BMP and magnesium levels today I will also reach out to my pulmonary hypertension colleague to see if ph is playing a role with her symptoms she did have evidence of moderate pulm hypertension on prior echo in February 2023 Other possibilities include ILD/colitis obliterans/fibrosing mediastinitis I have advised her to use supplemental oxygen 2 L/min all the time Expedite echocardiogram, PH clinic evaluation We will discuss PFT results upon completion next week POSSIBLE diuretic trial [facility] 01-07-2024 Telephone encounter Note Message Received: Yesterday Jani Carver MD sent to [facility] w Pulm Nurse betty Harris fax my note to patient's pcp thanks KENN notes with Dr Carver 01/06/24 faxed to PCP via EPIC [facility] 01-07-2024 Miscellaneous Notes Message Received: Yesterday Jani Carver MD sent to P w Pulm Nurse betty Harris fax my note to patient's pcp thanks KENN notes with Dr Carver 01/06/24 faxed to PCP via EPIC documented in this encounter [facility] 01-06-2024 History of Present illness Narrative Arterial documented in this encounter [facility] 01-06-2024 History of Present illness Narrative Celso Weller is a 43 year old female here for follow appointment for dyspnea, cough, post XRT related restrictive ventilatory defect and central bronchiectasis. She has history of HL status post chemoradiation, Auto BMT In 2013, pulmonary embolism, PjP pneumonia, hypoxic respiratory failure in 2015 We had last met about last month during her hospitalization at [place] for persistent dyspnea, cough and pulmonary infiltrates. She was admitted to hospital on 2 occasions this year for pneumonia Recent PET showed new ground glass opacities and there was evidence of pleural effusions. She underwent bronchoscopy with BAL for ruling out PCP. Since the prior visit, she reports her chest feels inflamed Also feels lungs are in an : iron box It's hard to take a full breath and she isn't getting enough air. She tries to run errands and gets short of breath I am miserable She is coughing. She is taking mucinex that helps, which makes it occasional cough Very little phlegm No fever or chills Feels she hasn't bounced back from the pneumonia in Mar 2023 and it's been down hill since then She has noted some Lower extremity swelling Oxygen use at night - using 2 lpm During day time, she hasn't used it much She isn't on diuretic - reports significant cramping and pain in the body when she takes diuretics. She was on it x 1 dose while she was hospitalized earlier this year Dounebs PRN -seem to help mildly REVIEW OF SYSTEMS GENERAL: No unintentional weight loss, Fatigue, or fever HEENT: Negative for frequent or significant headaches, No changes in hearing or vision, no nose bleeds or other nasal problems RESPIRATORY: + COUGH and baez CARDIOVASCULAR: Negative for chest pain, mild leg swelling PAST MEDICAL HISTORY Diagnosis Date ASCUS favor [...] papillomavirus (HPV) DNA test positive 09/28/2014 BP 148/101 Pulse 99 LMP 11/18/2012 SpO2 92% on room air Dips to 89 % on room air at rest PHYSICAL EXAM General appearance: well appearing, alert, in no acute distress Nose/Sinuses: no drainage or sinus tenderness Oropharynx: oropharynx normal, no thrush Respiratory: lungs clear to auscultation. No wheezing, rhonchi, rales unlabored on room air negative findings: no chest deformities noted Cardiovascular: RRR S1 normal, S2 normal Extremities- mild leg edema DATA: I personally reviewed all data noted PFT: SPIROMETRY - BASELINE AND POST DILATOR ([id number]) - ordered on 03/28/23 PFT pending scheduled for next week Prior PFTs consistent with restrictive ventilatory defect Bronchoscopy results Blood Stool Urine Misc TM Order Specimen Date Collected Last Update Result Status CC FUNGAL CULTURE (NON DERMAL) [[id number]] Bronchoalveolar Lavage RUL 12/20/2023 1:53 PM 01/05/2024 11:01 PM No Fungus isolated after 16 days Preliminary result Add Me AFB CULT + STAIN [[id number]] Bronchoalveolar Lavage RUL 12/20/2023 1:53 PM 01/04/2024 7:01 AM Culture, Afb: No Acid Fast Bacilli isolated after 14 days Afb Stain: No acid fast bacilli seen by flurochrome stain Preliminary result Add Me ASPERGILLUS GALACTOMANNAN BAL [[id number]] Bronchoalveolar Lavage RUL 12/20/2023 1:53 PM 12/24/2023 11:43 AM Asper. Ag Bal,Qual: Negative Comment: Aspergillus Galactomannan antigen assay is used as an aid in diagnosis of invasive aspergillosis in immunocompromised individuals especially in post-stem cell transplant, hematological malignancies on chemotherapy, and HIV-positive patients with very low CD4 T-cell counts. The test may also be used in disease prognostication and for monitoring response to anti-fungal therapy. False positive and false negative results are not uncommon. Clinical and radiological correlation is required. Aspergillus Galactomannan: 0.07 Final result BRONCHOSCOPY CULTURE AND GRAM STAIN [[id number]] Bronchoalveolar Lavage RUL 12/20/2023 1:53 PM 12/23/2023 9:58 AM Culture, Bronch: No growth 2 days Gram Stain: No organisms seen Rare Polymorphonuclear leukocytes Gram stain performed on cytospun specimen. Final result LEGIONELLA SPECIES PCR [[id number]] Bronchoalveolar Lavage RUL 12/20/2023 1:53 PM 12/22/2023 11:27 AM Not detected >>NOTE Final result PNEUMOCYSTIS JIROVECII PCR [[id number]] Bronchoalveolar Lavage RUL 12/20/2023 1:53 PM 12/21/2023 12:00 PM Not detected >>NOTE Final result EXPANDED RESPIRATORY PATHOGEN PANEL BY PCR, ROUTINE [[id number]] Bronchoalveolar Lavage RUL 12/20/2023 1:53 PM 12/20/2023 10:29 PM Sars-Cov-2 (Agent Of Covid-19) Rna: Not detected Influenza A Rna: Not detected Influenza B Rna: Not detected Respiratory Syncytial Virus (Rsv) Rna: Not detected Human Metapneumovirus (Hmpv) Rna: Not detected Human Rhinovirus/Enterovirus Rna: Not detected Adenovirus Dna: Not detected Parainfluenza 1 Rna: Not detected Parainfluenza 2 Rna: Not detected Parainfluenza 3 Rna: Not detected Parainfluenza 4 Rna: Not detected Coronavirus 229e Rna: Not detected Coronavirus Oc43 Rna: Not detected Coronavirus Nl63 Rna: Not detected Coronavirus Hku1 Rna: Not detected Chlamydia Pneumoniae Dna: Not detected Mycoplasma Pneumoniae Dna: Not detected >>NOTE Final result COVID & INFLUENZA A/B & RSV PCR, EXPEDITED [[id number]] Nasopharynx 12/18/2023 7:35 PM 12/18/2023 8:19 PM Sars-Cov-2 (Agent Of Covid-19) Rna: Not detected Influenza A Rna: Not detected Influenza B Rna: Not detected Respiratory Syncytial Virus (Rsv) Rna: Not detected >>NOTE Final result RESPIRATORY CULTURE AND STAIN [[id number]] Sputum 06/13/2023 11:00 PM 06/17/2023 7:50 AM Culture, Respiratory: Rare Stenotrophomonas maltophilia Comment: Insignificant colony count. 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 We discussed trial of a diuretic however she has had intolerance in the past I will check her proBNP BMP and magnesium levels today I will also reach out to my pulmonary hypertension colleague to see if ph is playing a role with her symptoms she did have evidence of moderate pulm hypertension on prior echo in February 2023 Other possibilities include ILD/colitis obliterans/fibrosing mediastinitis I have advised her to use supplemental oxygen 2 L/min all the time Expedite echocardiogram, PH clinic evaluation We will discuss PFT results upon completion next week POSSIBLE diuretic trial F/u 6 weeks for close follow up Jani Carver MD, [facility] [place] I spent a total of 42 minutes on the date of the service which included preparing to see the patient, [id number] patient care, completing clinical documentation, obtaining and/or reviewing separately obtained history, performing a medically appropriate examination, counseling and educating the patient/family/caregiver, ordering medications, tests, or procedures, communicating with other HCPs (not separately reported), and independently interpreting results (not separately reported). documented in this encounter [facility] 01-06-2024 Telephone encounter Note Being addressed in other phone encounter. Was routed to scheduling to assist with scheduling oximetry with ambulation. [facility] 01-06-2024 Miscellaneous Notes Being addressed in other phone encounter. Was routed to scheduling to assist with scheduling oximetry with ambulation. Images from the original note were not included. Delmi Russell APRN.CNP You 9 minutes ago (11:58 AM) Please make sure patient is schedule for walk test. Thank you. documented in this encounter [facility] 01-06-2024 Telephone encounter Note Images from the original note were not included. Delmi Russell APRN.CNP You 9 minutes ago (11:58 AM) Please make sure patient is schedule for walk test. Thank you. [facility] 01-03-2024 History of Present illness Narrative Images from the original note were not included. [facility] [place] [facility] Department of Cardiovascular Medicine SECTION OF CARDIOLOGY OUTPATIENT VISIT DATE January 03, 2024 OUTPATIENT VISIT TYPE NEW SUBJECTIVE: Celso Weller is a 43 year old female. Patient presents with: New Patient Celso Weller was referred by Carole Ruano HPI: Celso Weller is a 43 yo female with a [...] received treatment with Keytruda per Dr. Abimael Hernandez (completed 05/01/22 - after 38 cycles). Imaging in July 2022 demonstrated a complete remission and is now under surveillance per Dr. Ledezma. PET/CT in 01/2023 and 05/2023 remained without evidence of disease. The patient presents today for further evaluation of persistent left-sided pulmonary infiltrate, opacities/scarring with bronchiectasis in the medial left lung and pulmonary hypertension on echocardiogram. Echocardiogram, February 2023, revealed an ejection fraction of 57%, with no regional wall motion abnormalities. Right sided pressures were estimated at 51 mmHg consistent with moderate pulmonary hypertension. CARDIAC HISTORY: SYMPTOMS: Chest pain/discomfort: No, Palpitations:Yes, Arrhythmia: No Dyspnea: Yes, Dyspnea at rest: No, Nocturnal dyspnea: No Orthopnea: Yes, Diaphoresis: No, Dizziness: No, Syncope: No, Edema: No, Nocturia: Yes, Impaired exercise tolerance: Yes, Claudication:No CONDITIONS: Hypertension: No, Heart failure:No, [place] [employer] Functional Classification: Class II, Atrial fibrillation:No, History of myocardial infarction/angina: No, History of CABG/PCI:No, Valvular heart disease: No, Cardiomyopathy: No, Aortic diseases: No, Peripheral vascular disease: No, History of cerebrovascular accident: No, History of pulmonary embolism Yes, History of DVT No. History of rheumatic fever: No, History of transient ischemic attacks: No, Congenital heart disease: No, Pericarditis: No, Pericardial Effusion: No, Coronary Calcium: No, Pulmonary HTN: Yes CORONARY RISK FACTORS: Family history of coronary artery disease Yes: Family history CAD in a first degree relative Paternal grandfather Premature onset: No, Tobacco use No: Remote, Sedentary lifestyle Yes, Hypertension No, Hyperlipidemia No, Diabetes mellitus No, Obesity No, Peripheral vascular disease No. HISTORIES: FAMILY HISTORY Problem Relation Age of Onset Multiple Sclerosis Mother Coronary Artery Disease Maternal Grandfather OR age 36 Coronary Artery Disease Paternal Grandfather 60's Multiple Sclerosis Maternal Grandmother PAST MEDICAL HISTORY Diagnosis Date ASCUS favor [...] path VATS MEDIASTINAL LYMPHADENECTOMY 10/2012 left VATS Social History Tobacco Use Smoking status: Former Current packs/day: 0.00 Types: Cigarettes Start date: 01/17/2002 Quit date: 01/18/2012 Years since quittin.9 Passive exposure: Past Smokeless tobacco: Never Vaping Use Vaping status: Never Used Substance Use Topics Alcohol use: Yes Alcohol/week: 0.0 standard drinks of alcohol Comment: 2 drinks per month Drug use: No Occupation: Disabled/retired ALLERGIES Allergen Reactions Chlorhexidine Itching Severe skin irritation. Had used for central line care Sulfa (Sulfonamide * Rash REVIEW OF SYSTEMS: Constitutional: Fatigue: Yes, Weight loss: No, Weight gain: No, Fever: No, Chills: No Eyes: Blurred or Reduced Vision:No Ears: Hearing Loss:No Nose,Throat: Epistaxis:No, Bleeding gums:No Respiratory: Dyspnea:Yes, Cough:No, Hemoptysis:No, Wheezing:No, Pleuritic pain:No, Sleep Apnea:No, COPD:No, Asthma:No Gastrointestinal: Hematemesis:No, Blood in stool:No, Abdominal pain:No, Nausea and/or vomiting:No Genitourinary: Dysuria:No, Hematuria:No, Renal insufficiency:No, Pregnancies:No, BPH:No, Erectile Dysfunction:No Hematologic: Anemia:No, Bruises easily:No, Bleeds easily:No History of Cancer: Hodgkin Lymphoma Musculoskeletal: Muscle pain:No, Arthritis/Arthralgia:No Skin: Rash:No, Pruritus:No Neurologic: Headache:No, Dizziness:No, Seizures:No, Dementia:No Psychiatric: Anxiety:No, Depression:No, Over the past 2 weeks have you felt down, depressed or hopeless?:No, Over the past 2 weeks have you felt little interest or pleasure in doing things?:No Endocrine: Polyphagia:No, Polydipsia:No, Polyuria:No, Goiter:No, Hyper/hypothyroidism:No, Dyslipidemia:No Allergic, Immunology: Urticaria:No, Collagen vascular disease:No Other: The rest of the review of systems is unremarkable and negative or non-contributory. OBJECTIVE: VITALS: BP 114/78 Pulse 94 Ht 6' 0 (1.83m) Wt 220 lb (99.8kg) SpO2 95% LMP 11/18/2012 BMI 29.83 kg/(m^2). PHYSICAL EXAMINATION: GENERAL APPEARANCE: Appears Healthy:Yes, Obese:No, Acute distress:No, Appearance consistent with age:Yes, Responds appropriately: Yes MENTAL STATUS: Alert:Yes, Cooperative:Yes, Pleasant:Yes, Affect: normal EYES: Conjunctiva/corneas normal:Yes, PERRL:Yes, Scleral icterus:No, Xanthelasma:No HEAD, NECK: Good oral hygiene:Yes, Oral mucosa normal:Yes, Jugular venous distention:No, Hepatojugular reflux:No, Thyromegaly:No, Carotid endarterectomy:No,Thyroidectomy :No RESPIRATORY:Chest movement symmetrical:Yes, Respiratory effort normal:No, Percussion of chest normal:No, Breath sounds normal:No, Crackles:No, Rales:No, Rhonchi:No, Wheezing:No: Mild to percussion, decreased breath sounds left lower third, Pleural friction rub:No, Evidence of pacemaker/ICD:No, Median sternotomy scar:No, Sternal instability:No CARDIAC: [place] beat not localized, Cardiac thrill:No, Heart rate normal:Yes, Heart rhythm normal:Yes, S1 normal:Yes, S2 normal:Yes, S3 ausculated:No, S4 ausculated:No, Gallop ausculated:No, Heart murmur:No, Prosthetic valve click:No, Pericardial friction rub:No ABDOMINAL:Abdomen soft, non-tender. BS normal. No masses or organomegaly. VASCULAR/EXTREMITIES:Radial pulse normal:Yes, Carotid pulse normal:Yes, Carotid bruit:No, Abdominal aorta palpable:No, Abdominal aortic bruit:No, Femoral pulse normal:Yes, Femoral bruit:No, Dorsalis pedis pulse present:Yes, Posterior tibial pulse present:Yes, Popliteal pulse:Yes, Varicose veins:No, Leg edema:No, Pedal edema:Yes NEUROLOGIC: Grossly non-focal:Yes MUSCULOSKELETAL: Muscle strength normal:Yes, Joint range of motion normal:Yes SKIN: Clubbing:No, Cyanosis:No, Pallor:No, Diaphoresis:No, Stasis dermatitis/post phlebitic changes:No, Cutaneous xanthoma:No REVIEWED: ECG: YES sinus tachycardia 101 bpm delayed R wave progression across anterior precordium Echo: YES As above Cath: No Stress: No PREVENTATIVE CARE: GENERAL: Non-smoker DIET/EXERCISE: Recommended regular physical activity. PATIENT EDUCATION: Continue with medications as directed. Instructed on CHF. ASSESSMENT/PLAN/RECOMMENDATIONS: Celso Weller is a 43 yo female with a [...] received treatment with Keytruda per Dr. Abimael Hernandez (completed 05/01/22 - after 38 cycles). Imaging in July 2022 demonstrated a complete remission and is now under surveillance per Dr. Ledezma. PET/CT in 01/2023 and 05/2023 remained without evidence of disease. The patient presents today for further evaluation of persistent left-sided pulmonary infiltrate, opacities/scarring with bronchiectasis in the medial left lung and pulmonary hypertension on echocardiogram. Echocardiogram, February 2023, revealed an ejection fraction of 57%, with no regional wall motion abnormalities. Right sided pressures were estimated at 51 mmHg consistent with moderate pulmonary hypertension. Clinical examination was notable for dullness to percussion and decreased breath sounds in the left lower third of the lung field. The patient's presenting symptoms and findings, along with clinical and echocardiographic findings and implications were discussed in detail with the patient. Although anticipating an extremely low yield I have suggested repeat echocardiogram to see if there has been any change in cardiac structure or function that may explain her presenting symptoms and signs. In addition, I would suggest the input/opinion of the pulmonary hypertension clinic as to further evaluation and management. The patient will follow-up with me in the office on the day of the echo to discuss the results and further management. I spent a total of 45 minutes on the date of the service which included preparing to see the patient, [id number] patient care, completing clinical documentation, performing a medically appropriate examination, counseling and educating the patient/family/caregiver and ordering medications, tests or procedures. Encounter Diagnosis ICD-10-CM 1. Other acute pulmonary embolism, unspecified whether acute cor pulmonale present (HCC) I26.99 ECHO 2. Pleural effusion, left J90 ECHO 3. Pulmonary hypertension (HCC) I27.20 ECHO Korina Vega MD documented in this encounter [facility] 01-03-2024 Nurse Note Finish Molder present: Elaine Enriquez LPN [facility] 01-03-2024 Instructions Korina Vega MD - 01/03/2024 2:43 PM EST Echo at [facility] at next visit documented in this encounter [facility] 01-03-2024 Nurse Note Finish Molder present: Elaine Enriquez LPN documented in this encounter [facility] 01-03-2024 History of Present illness Narrative Radiology Service Progress Note PATIENT NAME: Celso Weller DATE OF SERVICE: January 03, 2024 TIME: 1:41 PM PATIENT IDENTITY VERIFICATION COMPLETED USING TWO [...] PATIENT PRESENTS WITH AN IMPLANTABLE OR ATTACHED CHAIN SPLITTER: No RADIOLOGY DEPARTMENT: Ultrasound PERIPHERAL IV DATA: Not applicable SIGNED BY: DIMA Alarcon) January 03, 2024 1:41 PM documented in this encounter [facility] 01-03-2024 Note HNO ID: [id number] Author: CAROLE PATINO RT (R) Service: Radiology Author Type: Technologist Type: Progress Notes Filed: 01/03/2024 13:41 Note Text: Radiology Service Progress Note PATIENT NAME: Celso Weller DATE OF SERVICE: January 03, 2024 TIME: 1:41 PM PATIENT IDENTITY VERIFICATION COMPLETED USING TWO [...] PATIENT PRESENTS WITH AN IMPLANTABLE OR ATTACHED CHAIN SPLITTER: No RADIOLOGY DEPARTMENT: Ultrasound PERIPHERAL IV DATA: Not applicable SIGNED BY: RT Dorian(R) January 03, 2024 1:41 PM [facility] 01-02-2024 Telephone encounter Note Palliative Medicine Care Coordination Follow up Phone Call Telephone call to Celso Weller with no answer, left a detailed voicemail regarding Irene Han CNP's recommendation to consider changing her dosing of the Oxy IR 10 mg 1 tablet to take at 7 am and mid afternoon. Let her know that if not effective we may trial oxycodone 10 mg every 8 hours as needed for pain. Also to continue her Tylenol as ordered. Call back number given if not effective or if she has any other questions. Kylie Mosher RN January 02, 2024 12:03 PM [facility] 01-02-2024 Miscellaneous Notes Palliative Medicine Care Coordination Follow up Phone Call Telephone call to Celso Weller with no answer, left a detailed voicemail regarding Irene Han CNP's recommendation to consider changing her dosing of the Oxy IR 10 mg 1 tablet to take at 7 am and mid afternoon. Let her know that if not effective we may trial oxycodone 10 mg every 8 hours as needed for pain. Also to continue her Tylenol as ordered. Call back number given if not effective or if she has any other questions. Kylie Mosher RN January 02, 2024 12:03 PM Consider changing her dosing to 7 am and mid afternoon. If this doesn't help may trial oxycodone 10 mg TID (Q8H) PRN for pain. Irene Han APRN.PEDRO documented in this encounter [facility] 01-02-2024 Telephone encounter Note Consider changing her dosing to 7 am and mid afternoon. If this doesn't help may trial oxycodone 10 mg TID (Q8H) PRN for pain. Irene Han APRN.SEWAGE DISPOSAL ENGINEER [facility] 12-26-2023 History of Present illness Narrative PALLIATIVE MEDICINE PROGRESS NOTE SERVICE DATE: December 26, 2023 IDENTIFICATION AND INTRODUCTION: Celso Weller is a 43 year old female This visit took place Virtually; I have communicated my name and active licensure. The patient's identity and physical location were verified at the time of this visit. The patient or their legal retail service representative has been informed of the risks and benefits of -- and alternatives to -- treatment through a remote evaluation and consents to proceed with the evaluation remotely. CHIEF COMPLAINT: Patient presents with: Pain Follow Up PERTINENT MEDICAL HISTORY: Celso Weller is a 43 yo female with a [...] received treatment with Keytruda per Dr. Abimael Hernandez (completed 05/01/22 - after 38 cycles). Imaging in July 2022 demonstrated a complete remission and is now under surveillance per Dr. Ledezma. PET/CT in 01/2023 and 05/2023 remained without evidence of disease. Palliative care is following for symptom control needs. Subjective Seen today virtually for follow up. Saw an environmental protection economist with [facility] - needed tetanus booster. Also did a pneumonia panel, all the markers were low. Given a pneumonia vaccine also. Will have titers rechecked this month. Will then do allergy testing to work up sinus issues. Had pain management appointment this morning. Celso shared that suggestions were increase gabapentin (however this was already tried and failed), Keppra (which she fears the side effects of and will not start), and she reports the only option for [facility]al procedures [facility]. Her priority currently is her lungs. Continues to struggle with SOB. Was seen by pulmonology and reports she was hypoxic in office. Declined ED eval and was sent home with supplemental oxygen based on walk test results. She continues to use oxygen at night which she feels helps her sleep quality and how she feels upon waking. Had bronchoscopy on 12/19 and will f/u with Dr. Carver to continue discussion about next steps. Pain continues in her chest which is unchanged. Intermittently bothersome. Depending on pain level, she will take flexeril, APAP, or oxycodone PRN. Continues gabapentin as is. No confusion, oversedation, myoclonus, constipation. REVIEW OF SYSTEMS: Review of Systems Modified ESAS ([place] Symptom Assessment Scale) Information Provided By: Patient Pain: Mild Nausea: None Loss of Appetite: None Constipation: None Shortness of Breath: Moderate Drowsiness: None Tiredness: Moderate Depression: None Anxiety: None How you feel overall: Fair Objective PHYSICAL EXAMINATION: [facility] 11/18/2012 Physical Exam DATA: Diagnostic tests reviewed for today's visit: Most recent labs and imaging results. Creatinine Date Value Ref Range Status 12/20/2023 0.75 0.58 - 0.96 mg/dL Final Estimated Creatinine Clearance: 130.6 mL/min (based on SCr of 0.75 mg/dL). Opioid Management: Yes Indication for Opioid [...] APPROPRIATELY filled. No suspicious activity was identified. 12/26/2023 by Irene Han APRN.SEWAGE DISPOSAL ENGINEER Urine Screen Lab Results Component Value Date [...] Urine pH, Pain [place] 6.3 02/24/2021 Specific [place],Ur Pain Ocasio 1.012 02/24/2021 Oxid[place],Ur 46 02/24/2021 Specimen Quality, Ur Pain [place]cas[place] Specimen quality results within acceptable limits. 05/03/2014 Assessment & Plan (Z51.5) Encounter for palliative care (primary encounter diagnosis) - reviewed role of palliative care, contact info, and reasons to call. 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 Muscle cramps happening only intermittently. We have tapered medications to manage xerostomia and fatigue. - continue cyclobenzaprine 10 mg BID PRN for muscle cramps (has recently been taking only PRN per her report as she linked this to her dry mouth) - recently evaluated by rheumatology - no concern for psoriatic arthritis, imaging showing osteo. Continues to have chest pain due to radiation fibrosis with muscle spasms intermittently. Discussed opiates are not indicated for this type of pain marbleizer. - s/p pain management consultation 12/26/23: ordered Keppra - not starting due to fear of side effects. Was told that interventional procedures would need to be set up at [facility]. She is tabling this topic while working on getting SOB worked out. - will continue oxycodone 10 mg BID PRN (counseled on use of benzo and opioids together and increased risk of respiratory depression; narcan previously prescribed) - continue APAP 1000 mg TID - continue gabapentin 600 mg TID (self reported, taking 300/600/300 - advised to change to 300/300/600 to help target sleep) managed by PCP- did not tolerate transition to pregabalin - Voltaren ineffective - previously discussed duloxetine for co management of anxiety also - declined. now on lexapro per PCP (F43.22) Adjustment disorder with anxious mood - [...] Some elements copied from my note on 11/14/23, the elements have been updated and all reflect current decision making from today, 12/26/2023. Next Visit: 6-8 Weeks via virtual visit Irene Han APRN.CNP December 26, 2023 12:50 PM This note may have been partially generated using the Gen[employer] voice recognition system. While every effort was made to correct voice recognition errors, kindly be aware that some errors may occasionally occur. documented in this encounter [facility] 12-26-2023 History of Present illness Narrative Ms. Weller a 43 year old female returns today for follow up of discuss injections, she states that symptoms have improved. PAIN: Pain Yes. Location: all joints, rates pain a 4 on a pain scale of 1-10. Patient describes pain as aching, duration to the present time occuring daily x 4. MEDICATIONS: Medications reviewed and verified. Current Outpatient Medications Medication Sig escitalopram oxalate (LEXAPRO) 10 mg tablet Take 1 tablet by mouth once daily. oxyCODONE IR (ROXICODONE) 10 mg tab Take 1 tablet by mouth two times a day as needed for pain for up to 30 days. cyclobenzaprine (FLEXERIL) 10 mg tablet Take 1 tablet by mouth two times a day as needed for muscle spasm. sodium chloride (NEBUSAL) 3 % nebulizer solution Use 4 mL via nebulizer two times a day. traZODone (DESYREL) 100 mg tablet Take 100 mg by mouth at bedtime as needed. AT BEDTIME. tolterodine ER (DETROL LA) 2 mg 24 hr capsule Take 2 mg by mouth once daily. gabapentin (NEURONTIN) 300 mg capsule Take 2 capsules by mouth three times a day for 90 days. ipratropium-albuterol (DUONEB) 0.5 mg-3 mg(2.5 mg [...] mouth once daily Biotin 2,500 mcg cap fluocinonide (LIDEX) 0.05 % cream apply to affected area ON THE RIGHT HAND and legs TWICE A DAY levothyroxine (SYNTHROID) 75 mcg tablet Take 1 tablet by mouth once daily. triamcinolone acetonide (KENALOG) 0.1 % ointment APPLY TO THE AFFECTED AREA TWICE A DAY FOR 5 DAYS Vitamin B Comp and C No.3 (B COMPLEX PLUS VITAMIN C) [id number] mg cap Take 1 tablet by mouth once daily. Lactobac no.41/Bifidobact no.7 (PROBIOTIC-10 ORAL) Take by mouth. atenolol (TENORMIN) 50 mg tablet take 1 tablet by mouth twice a day CHOLECALCIFEROL, VITAMIN D3, (VITAMIN D3 ORAL) Take 1,000 Units by mouth once daily. No current facility-administered medications for this visit. Patient feels that medications have not used PREVIOUS TREATMENTS LASTING SIX WEEKS IN THE LAST SIX MONTHS Active conservative therapy lasting 6 weeks in the last six months (see below) 1. Physical therapy: No 2. Home exercise program after PT: No 3. Occupational therapy: No 4. A physician supervised home exercise program (HEP): No 5. Distance Education Coordinator: No Passive conservative therapy lasting 6 weeks in the last six months (see below) 1. Medical devises: No 2. Acupuncture: No 3. Tens unit: No 4. Prescription pain medication: Yes 5. NSAIDS: No TREATMENTS: Nucynta ER 50 mg EXAM: LMP 11/18/2012 No acute distress noted, patient alert and oriented X's 3. Resistive testing proximal and distal in the lower extremeties show 5/5 strength. Nerve root tension signs: Negative. 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 Note that she did not tolerate lyrica. Never tried Butrans patch - she saw palliative care who is prescribing oxycodone 10 mg po bid, Her chief issue now is chest tightness relatively constant - feels inflamed . Initially denies that these sx's are worse with position or activity - on further discussion she feels this tightness is more of an issue with movement. Does not awaken form sleep with this. She is on Xarelto - so has not tried NSAI because of this. Palliative care gave her a NSai CREAM THAT WAS INEFFECTIVE. PLAN: Discussed the above findings and potential options with the patient. Suggest: - consider trial of keppra 250 mg po bid - option to evaluate in Neuro Pain - ketamine infusion The above exam has been completed by me and the pertinent and negative systems have been updated. I spent a total of 30 minutes on the date of the service which included preparing to see the patient, [id number] patient care, completing clinical documentation, obtaining and/or reviewing separately obtained history, performing a medically appropriate examination, counseling and educating the patient/family/caregiver, ordering medications, tests, or procedures, communicating with other HCPs (not separately reported), independently interpreting results (not separately reported), communicating results to the patient/family/caregiver, and care coordination (not separately reported). Kodi Pantoja MD documented in this encounter [facility] 12-25-2023 Telephone encounter Note OV with Dr. Carver added for 01/05. LVM and MC explaining need to schedule PFTs before office visit with Mehul [facility] 12-25-2023 Miscellaneous Notes OV with Dr. Carver added for 01/05. LVM and MC explaining need to schedule PFTs before office visit with Mehul documented in this encounter [facility] 12-20-2023 Note HNO ID: [id number] Author: FLORI CURRAN RN Service: Care Management Author Type: Registered Nurse Type: Care Mgt Progress Note Filed: 12/20/2023 15:25 Note Text: CARE MANAGEMENT DISCHARGE NOTE SERVICE DATE: December 20, 2023 SERVICE TIME: 3:25 PM Admission Date: 12/18/2023 LOS: 1 day Discharge Arrangement Discharge Arrangement: Home with Self Care Caregiver Assessment Caregiver is ready, willing and able to meet the patient's needs as recommended by the inter-professional team: No Caregiver needed Transportation Arrangements Transportation Arrangements: Car Destination: [address] [place] [address] Handoff Communication: Handoff to: Primary Care Physician Primary Care Physician Name/Phone: Bee Vail MD PCP - [facility], Internal Medicine [phone] SIGNATURE: Flori Curran RN PATIENT NAME: Celso Weller DATE: December 20, 2023 TIME: 3:25 PM CONTACT #: [phone] [facility] 12-20-2023 Note HNO ID: [id number] Author: NURIA MEZA AA Service: ? Author Type: [employer] Type: Anesthesia Procedure Notes Filed: 12/20/2023 13:51 Note Text: ANESTHESIOLOGY PROCEDURE NOTE Airway General Information Procedure Start Time/Medication Administration: 12/20/2023 1:43 PM Procedure End Time: 12/20/2023 1:44 PM Patient location during procedure: OR Staffing CAA: Nuria Meza AA Performed by: GEORGINA Indications and Patient Condition Indications for airway management: anesthesia Preoxygenated: yes anesthesia circuit Patient position: sniffing Method: asleep Difficult Mask: No Final Airway Details Final airway type: supraglottic airway Number of attempts at approach: 1 Final Supraglottic Airway: IGEL Size 4 Seal Adequate: yes Airway not difficult SIGNATURE: ANITRA Mary PATIENT NAME: Celso Weller DATE: December 20, 2023 TIME: 1:51 PM CSN: [id number] [facility] 12-20-2023 Note [facility] Procedure: Bronchoscopy Indications: Bilateral infiltrate Providers: Quincy Kang MD, Quincy Kang MD (Doctor) Referring MD: Requesting Physician: Medicines: Lidocaine 2% applied to cords 2 mL, Lidocaine 2% subglottic space 2 mL Complications: No immediate complications Procedure: Pre-Anesthesia Assessment: - A History and Physical has been performed. Patient meds and allergies have been reviewed. The risks and benefits of the procedure and the sedation options and risks were discussed with the patient. All questions were answered and informed consent was obtained. Patient identification and proposed procedure were verified prior to the procedure. Mental Status Examination: alert and oriented. After reviewing the risks and benefits, the patient was deemed in satisfactory condition to undergo the procedure. The anesthesia plan was to use deep sedation / analgesia. Immediately prior to administration of medications, the patient was re-assessed for adequacy to receive sedatives. The heart rate, respiratory rate, oxygen saturations, blood pressure, adequacy of pulmonary ventilation, and response to care were monitored throughout the procedure. The physical status of the patient was re-assessed after the procedure. After obtaining informed consent, the 3154 bronchscope was introduced through the mouth, via laryngeal mask airway and advanced to the tracheobronchial tree of both lungs. The patient tolerated the procedure well. Findings: The laryngeal mask airway is in good position. The vocal cords appear normal. The subglottic space is normal. The trachea is of normal caliber. The maritza is sharp. The tracheobronchial tree was examined to at least the first subsegmental level. Bronchial mucosa and anatomy are normal; there are no endobronchial lesions. Very minimal whitish secretion in upper right, left, suctioned. No secretion in bilateral lower lungs. The bronchoscope was advanced until wedged at the desired location for bronchoalveolar lavage. BAL was performed in the RUL of the lung and sent for cell count, bacterial culture, viral smears and culture, fungal and AFB analysis and cytology for immunocompromised host protocol. The return was clear. There were no mucoid plugs in the return fluid. Impression: - Bilateral infiltrate - The airway examination was normal. - Bronchoalveolar lavage was performed. Attending Participation: I personally performed the entire procedure. MD Quincy Murrell MD 12/20/2023 3:28:38 PM This report has been signed electronically by Quincy Kang MD Number of Addenda: 0 Note Initiated On: 12/20/2023 1:24 PM [facility] 12-20-2023 Note HNO ID: [id number] Author: FLORI CURRAN RN Service: Care Management Author Type: Registered Nurse Type: Care Mgt Progress Note Filed: 12/20/2023 11:22 Note Text: SERVICE DATE: 12/20/2023 SERVICE TIME: 11:21 AM LOS: 1 day CARE MANAGEMENT WEEKEND PLANNING NOTE DISCHARGE OR POSSIBLE DISCHARGE Date/Time of discharge: TBD Disposition: home with self care Transport: family to transport Barriers or Concerns: Pulm on consult. Medical clearance-pt already has home O2 through [facility] [place] SIGNATURE: Flori Curran RN PATIENT NAME: Celso Weller DATE: December 20, 2023 TIME: 11:20 AM PAGER/CONTACT #: [phone] [facility] 12-20-2023 Note HNO ID: [id number] Author: CARLOS CASTELLON MD Service: Hospital Medicine Author Type: Physician Type: Progress Notes Filed: 12/20/2023 09:44 Note Text: DEPARTMENT OF HOSPITAL MEDICINE PROGRESS NOTE SERVICE DATE: 12/20/2023 SERVICE TIME: 6:38 AM Hospital Medicine/Primary Attending: Carlos Castellon MD NIGHT AND WEEKEND COVERAGE: [place] COVERAGE: Days: , please contact via [employer] Nights: - floor: please page [facility] Hospitalist night cover [phone] - 4W: please page [facility] Hospitalist night cover #[phone] - 5th floor: please page [facility] Hospital[facility] night cover #[phone] - SDU (17:00 - 19:00): Please page #[phone] - SDU (19:00 - 07:00): Please call [facility] at [phone] Subjective INTERVAL HPI: Patient seen and examined. Epic reviewed. NAMarianneON. Current Facility-Administered Medications Medication Dose Route Frequency NaCl 0.9% iv flush bag 20 mL INTRAVENOUS PRN acetaminophen 650 mg tab(s) (TYLENOL) 650 mg ORAL q 6 H PRN LORazepam 0.5 mg tab(s) (ATIVAN) 0.5 mg ORAL TID PRN oxyCODONE IR 10 mg tab(s) (ROXICODONE) 10 mg ORAL BID PRN atenolol 50 mg tab(s) (TENORMIN) 50 mg ORAL BID ipratropium-albuterol 3 mL nebulizer solution (DUONEB) 3 mL INHALATION q 6 H PRN sodium chloride 3 % 4 mL (NEBUSAL) 4 mL INHALATION BID pantoprazole DR 40 mg tab(s) (PROTONIX) 40 mg ORAL DAILY prochlorperazine 10 mg tab(s) (COMPAZINE) 10 mg ORAL q 8 H PRN escitalopram oxalate 10 mg tab(s) (LEXAPRO) 10 mg ORAL DAILY traZODone 100 mg tab(s) (DESYREL) 100 mg ORAL AT BEDTIME PRN cyclobenzaprine 10 mg tab(s) (FLEXERIL) 10 mg ORAL BID PRN gabapentin 600 mg cap(s) (NEURONTIN) 600 mg ORAL TID levothyroxine 75 mcg tab(s) (SYNTHROID) 75 mcg ORAL DAILY cholecalciferol 1,000 Units tab(s) (VITAMIN D3) 1,000 Units ORAL DAILY B Complex-Vitamin C-Folic Acid 1 tablet tab(s) ([place]-VIT) 1 tablet ORAL DAILY influenza vaccine ts 45 mcg (Patients 6 months to 64 years) (PF) 0.5 mL injection (FLUZONE ) 0.5 mL INTRAMUSCULAR ONCE (IMMUNIZATION) Objective PHYSICAL EXAM: BP 100/66 Pulse 82 Temp (Src) 97.5 (Oral) Resp 18 Ht 6' 0 (1.83m) Wt 235 lb 14.3 oz (107.0kg) SpO2 95% LMP 11/18/2012 BMI 31.99 kg/(m2). O2 Therapy: Room Air Physical Exam Performed GENERAL: Alert, no distress, cooperative LUNGS: Lungs clear to auscultation, Good diaphragmatic excursion CARDIAC: Normal S1 and S2; no rubs, murmurs, or gallops ABDOMEN: Abdomen soft, non-tender, BS normal, No masses or organomegaly EXTREMITIES: Exam deferred NEURO: Cranial nerves II-XII intact Lines, Drains, and Airways Line Duration Peripheral 12/18/232038 Short Left Antecubital 20 Gauge 1 day Reviewed lines and needs to be continued: REASONS: Telemetry DATA: Diagnostic tests reviewed for today's visit: Most recent labs Assessment/Plan Problem List Assessment AND Plan Autologous bone marrow transplantation status (HCC) Pulmonary embolism (HCC) Restrictive lung disease 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) HOSPITAL COURSE: Celso Weller is a 43 year old female presented with PMHx Lymphoma (completed Immunotherapy in September 2023), pulmonary embolism in 2012 on Xarelto, Depression/Anxiety, GERD, chemotherapy-induced neuropathy, recurrent pneumonia (most recent episode on October, treated at [facility]) with persistent shortness of breath, new oxygen requirements 3 L with exertion, ground glass changes on most recent PET/CT who was 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 Joel with ambulation. In s at pulmonary appt Admit to medicine for inpatient bronchoscopy Xarelto last dose was 12/15 PM. N.p.o. after midnight Pulmonology consulted Continue DuoNeb inhalers and hypertonic saline bronchial hygiene #Hypokalemia-replaced PO. Monitor PRN Chronic Medical Problems #CIPN-cont flexeril oxycodone, gabapentin #MDD/anxiety-lexapro, ativan TID PRN #Hypothyroidism-cont synthroid #GERD-PPI #Hx HL s/p BMT-OP onc follow up Medication and Non-Pharmacologic VTE Prophylaxis/Anticoagulants 12/19/23121 vte pharmacologic prophylaxis contraindicated ([place]) 12/19/23121 pneumatic compression stockings ([place]) 12/19/23121 activity - mobilize patient ([place]) VTE Prophylaxis: VTE prophylaxis appropriate Disposition: Home Plan of care discussed with Provider, RN, Patient SIGNATURE: Carlos Castellon MD PATIENT NAME: Celso Weller DATE: December 20, 2023 TIME: 6:38 AM [facility] 12-19-2023 Note HNO ID: [id number] Author: FLORI CURRAN RN Service: Care Management Author Type: Registered Nurse Type: Care Mgt Initial Assessment Filed: 12/19/2023 15:47 Note Text: CARE MANAGEMENT: ASSESSMENT AND DISCHARGE PLAN SERVICE DATE: December 19, 2023 SERVICE TIME: 3:43 PM PCP: Bee Vail MD Primary Contact: Extended Emergency Contact Information Primary Emergency Contact: [place] Relation: Significant other Admission Status: Inpatient Insurance Provider: [employer] MED[employer]ARE ASSURE HMO D SNP Discharge Planning requested by: Per Department Practice Potential Transition Plans No Services Indicated Advance Directives Current Advance Directive: Health Care Power of Strategy Execution Consultant;Living Will In Chart: No Current Living Arrangements and Support Lives with: Spouse/significant other Type of Residence: Private Residence (House) Does the patient have to climb stairs at home?: stairs within the home Support: Spouse/significant other, Family members How do you manage to accomplish the following: Independent: Ambulation;Bathe/Shower;Dress;Rhianna ls/Meal Prep;Medication Management;Going to the bathroom;Transportation to appointments/community Current Services/Equipment Current Post-Acute Service(s): Oxygen Current O2 Usage (device, rate, continuous/pulse and hrs per day): 3 LPM Current Post-Acute Service(s) Provider: PRN through [employer] Discharge Planning Patient Goal(s): Be able to go home, General wellness Harmans of Choice Explained: Harmans of Choice Given: No Reason Not Given: No placements necessary Discharge Planning Participant(s): Patient Caregiver Assessment: Caregiver is ready, willing and able to meet the patient's needs as recommended by the inter-professional team: No Caregiver needed Transport at Discharge: Transportation Arrangements: Car Destination: [address] [id number] Needs Prior to Discharge: Needs Prior to Discharge: Discharge Prescriptions Post-Acute Discharge Plan: CM met with pt bedside and explained my role in transitional care planning. Pt admitted with respiratory failure. Pt a/o x 3. Pt lives with fiance at home. Independent with ADLs and iADLs. Pt is on 3L 02 PRN through [employer]. Follows with pall med (Irene Han APRN.SEWAGE DISPOSAL ENGINEER) outpatient. Plan for bronchoscopy mai. No d/c needs anticipated. Family member will transport at d/c. SIGNATURE: Flori Curran RN PATIENT NAME: Celso Weller DATE: December 19, 2023 TIME: 3:43 PM CONTACT #: [phone] [facility] 12-19-2023 Note HNO ID: [id number] Author: CARLOS CASTELLON MD Service: Hospital Medicine Author Type: Physician Type: Plan of Care Filed: 12/19/2023 10:57 Note Text: Patient seen and examined. Epic reviewed. NAEON. Sent in by [employer] ticket seller for bronch. Maintain NPO except meds and ice chips. Appreciate pulm assistance in coordination. Replete K this AM. Rest per HANDP. Carlos Castellon MD Internal Medicine Epic Chat preferred 12/19/23 8:27 AM [facility] 12-18-2023 Note HNO ID: [id number] Author: NURIA NATHAN RT(R) Service: Radiology Author Type: Technologist Type: Progress Notes Filed: 12/18/2023 19:50 Note Text: Radiology Service Progress Note PATIENT NAME: Celso Weller DATE OF SERVICE: December 18, 2023 TIME: 7:50 PM PATIENT IDENTITY VERIFICATION COMPLETED USING TWO [...] PATIENT PRESENTS WITH AN IMPLANTABLE OR ATTACHED CHAIN SPLITTER: No RADIOLOGY DEPARTMENT: General X-ray: Exam(s) Completed: Chest X-Ray PERIPHERAL IV DATA: Not applicable SIGNED BY: RT Candido(R) December 18, 2023 7:50 PM [facility] 12-18-2023 Note SARS-COV-2 (AGENT OF COVID-19) RNA: Not detected INFLUENZA A RNA: Not detected INFLUENZA B RNA: Not detected RESPIRATORY SYNCYTIAL VIRUS (RSV) RNA: Not detected [facility] Comment on above: Performed By: #### 9 [id number] ####[facility]ATORY[facility]IA [id number] [facility] [place] [address] [facility] 12-17-2023 Telephone encounter Note Faxed form to [facility] Confirmation received [facility] 12-17-2023 Miscellaneous Notes Faxed form to [facility] Confirmation received Received oxygen therapy SWO form from [facility] Placed on desk for Kylie to review and sign. Faxed oxygen orders to [facility] Confirmation received Oxygen orders to be sent to [facility] documented in this encounter [facility] 12-17-2023 Telephone encounter Note Received oxygen therapy SWO form from [facility] Placed on desk for Kylie to review and sign. [facility] 12-17-2023 Telephone encounter Note Faxed oxygen orders to [facility] Confirmation received [facility] 12-17-2023 Telephone encounter Note Oxygen orders to be sent to [facility] 12-17-2023 History of Present illness Narrative Images from the original note were not included. [facility] ESTABLISHED PATIENT OFFICE VISIT December 17, 2023 My final reccommendations will be communicated back to the requesting physician by way of shared medical record or US mail. ASSESSMENT/PLAN: 1. Acute hypoxic respiratory failure (HCC) - ICD9: 518.81, ICD10: J96.01 (primary diagnosis) 2. Pneumonia due to infectious organism, unspecified laterality, unspecified part of lung - ICD9: 486, ICD10: J18.9 3. Restrictive lung disease - ICD9: 518.89, ICD10: J98.4 4. Bronchiectasis without complication (HCC) - ICD9: 494.0, ICD10: J47.9 43 year old female with a history of Lymphoma (completed Immunotherapy in September 2023), pulmonary embolism in 2012 on Xarelto, recurrent pneumonia (most recent episode on October, treated at [facility]) now with persistent shortness of breath, NEW oxygen requirements, ground glass changes on most recent PET/CT. Her case was reviewed with Dr. Carver in detail. The recommendations at our visit today were for ER evaluation with planned bronchoscopy later this week to rule out infection (she is immunocompromised, multiple rounds of steroids, does have a history of PJP in past). Celso declines ER evaluation, understanding that with her new O2 requirement and current presentation she is at risk for life threatening complications by going home. She understands the risks and chooses to go home. I advised her to continue to hold her Xarelto. Last dose was 12/15 PM. Will need to be helf 4 total doses. Will review with [facility] team about Bronchoscopy or Saturday. She would be willing to go to the ER at [facility] the night before confirmed procedure. I have arranged for her to have oxygen delivered to her home today with [facility]. She should wear 4L with exertion. Her O2 saturations were appropriate at rest (see documentation below). Continue Anoro daily. Continue airway clearance with Duoneb + Nebusal + Flutter valve BID Advised CLOSE monitoring of any symptoms, and if any signs of worsening, ER evaluation. Follow up in 1 week or sooner I have discussed the above recommendations in detail with the patient. Patient verbalizes understanding and is in agreement with plan as stated above. Patient has been instructed to call our office, their PCP, or go to the nearest emergency department for new or worsening problems, including but not limited to, increasing shortness of breath, cough, fever, or chills. 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 never smoker. Presents today for an urgent visit. She has been dealing with recurrent pneumonia, with the bouts of infection this year. Most recently treated at [facility] on 10/28. Since that time she has continued to feel poorly with cough, shortness of breath, fatigue. Not producing any phlegm. She tells me she feels she has been short of breath for so long its hard to describe if she is feeling worse. She always feels short of breath lately. She has noticed O2 dropping in to the 80s at home. We walked in the office today to better gauge her oxygen needs. Room air at rest 98 % Room air with exertion 82 % 2 L with exertion 86% 3L with exertion 88% 4L with exertion 93% Currently airway regimen: Stiolto daily Duoneb once or twice daily Albuterol HFA A complete ROS was preformed and all areas were negative except for what is listed in the HPI Most recent pulmonary office visit was on 11/21/2023 with myself. Assessment + Plan for reference below: ASSESSMENT/PLAN: 1. Pneumonia due to infectious organism, unspecified laterality, unspecified part of lung - ICD9: 486, ICD10: J18.9 (primary diagnosis) 2. Bronchiectasis without complication (HCC) - ICD9: 494.0, ICD10: J47.9 3. Restrictive lung disease - ICD9: 518.89, ICD10: J98.4 4. Oropharyngeal dysphagia - ICD9: 787.22, ICD10: R13.12 5. Voice impairment - ICD9: 784.40, ICD10: R49.9 Treated recently for pneumonia at [facility] with Levaquin and Doxycycline as well as an extended prednisone taper. Slow improvement but certainly not back to baseline. THIRD pneumonia infection this year. Unclear etiologies of pneumonia; currently working with Allergy/immunology to determine if there is an immune deficiency contributing. I would like to evaluate her lungs once well to check for any structural abnormalities which may be contributing. Will have her get a CT Chest in about 5 weeks time. Given the recurrence of pneumonia will STOP her ICS and have her maintained on LAMA/LABA. With the history of bronchiectasis she would benefit from more aggressive airway clearance which we discussed today. If she is able to start producing, will check sputum cultures and AFB; cups provided at this visit today. She should also be evaluated by ENT/Speech (Dr. Zendejas) for her voice impairment and GI to have her swallowing/muscle function evaluated. Will try to obtain chest imaging from [facility] for direct comparison. Airway clearance: To be done TWICE daily. Step 1: Open the airways with a bronchodilator - DUONEB Step 2: Hydrate the airways with an osmotic agent- Nebsal/Saline Step 3: Clear the mucus with an Airway Clearance Technique- Pickle Step 4: Maintenance inhaler - STIOLTO (only in AM) Start Mucinex BID OR NAC Follow up in 4-[address] Chest prior I have reviewed and updated the complete medication list in the EMR. ALLERGIES Allergen Reactions Chlorhexidine Itching Severe skin irritation. Had used for central line care Sulfa (Sulfonamide * Rash IMMUNIZATIONS: Immunization History Administered Date(s) Administered Haemophilus influenzae b (Hib PRP-OMP) vaccine, 3-dose series (PEDVAX HIB) 10/14/2013 12/21/2013 03/11/2014 Haemophilus influenzae b-meningococcal bivalent (Ehp-SpuPU-CU) vaccine (MENHIBRIX) 10/14/2013 diphtheria tetanus (DT) vaccine, [...] vaccine 03/11/2014 PHYSICAL EXAMINATION: VITAL SIGNS: BP 132/86 (BP Site: Left Arm, BP Position: Sitting, BP Cuff Size: Large Adult) Pulse 95 LMP 11/18/2012 SpO2 96% O2: room air GENERAL: alert, well appearing HEENT: Sclera anicteric. no visible nasal discharge. Lips, tongue, and buccal mucosa without cyanosis or erythema. CV: Regular rate and rhythm. LE edema. PULM: Lungs are clear to auscultation bilaterally without wheezes, rhonchi or rales. Respirations are non-labored without accessory muscle use. MSK: Extremities warm and well perfused. without cyanosis. NEURO: A&O x 3 . Answers questions appropriately PSYCH: Mood and affect appropriate for situation. DATA REVIEW: I have personally reviewed the following: Most recent labs reviewed. Oximetry with Ambulation Test for This Encounter O2 Device O2 Adapter NC O2 Flow SpO2% HR Activity Ft Walked (ft) Time (min) Avg Speed (MPH) R/A 98 93 Resting R/A 93 114 Walking, usual pace 535 3 2.03 R/A 98 98 Resting R/A 92 121 Walking, fastest pace 705 3 2.67 PET 12/10 IMPRESSION: Since 05/20/2023, RAMAKRISHNA DISEASE: * No metabolically active lymphadenopathy. EXTRANODAL DISEASE: * No metabolically active extranodal disease. ADDITIONAL FINDINGS: * Grossly stable left apical parenchymal irregular opacity likely representing chronic atelectasis/scarring. * Groundglass changes more prominent in the right upper lobe with no increased uptake likely representing infectious/inflammatory changes. Hemoglobin (g/dL) Date Value 11/21/2023 14.7 04/05/2021 15.3 Hematocrit (%) Date Value 11/21/2023 45.9 04/05/2021 45.8 WBC (k/uL) Date Value 11/21/2023 9.32 04/05/2021 8.31 Glucose (mg/dL) Date Value 11/21/2023 87 04/05/2021 127 Potassium (mmol/L) Date Value 11/21/2023 4.2 04/05/2021 4.4 Sodium (mmol/L) Date Value 11/21/2023 141 04/05/2021 140 Chloride (mmol/L) Date Value 11/21/2023 103 04/05/2021 105 CO2 (mmol/L) Date Value 11/21/2023 29 04/05/2021 27 Creatinine (mg/dL) Date Value 11/21/2023 0.71 04/05/2021 0.79 BUN (mg/dL) Date Value 11/21/2023 15 04/05/2021 12 Anion Gap (mmol/L) Date Value 11/21/2023 9 04/05/2021 8 Calcium (mg/dL) Date Value 04/05/2021 9.8 Calcium, Total (mg/dL) Date Value 11/21/2023 9.4 Protein, Total (g/dL) Date Value 11/21/2023 6.8 04/05/2021 7.1 Albumin (g/dL) Date Value 11/21/2023 4.3 04/05/2021 4.4 Bilirubin, Total (mg/dL) Date Value 11/21/2023 0.4 04/05/2021 0.5 Alkaline Phosphatase (U/L) Date Value 11/21/2023 57 04/05/2021 86 AST (U/L) Date Value 11/21/2023 28 04/05/2021 87 ALT (U/L) Date Value 11/21/2023 39 04/05/2021 106 Last Spirometry SPIROMETRY - BASELINE AND POST DILATOR Collected: 03/28/2023 1:39 PM (Final result) Narrative: [facility] [id number] [facility] 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 ATS/ERS acceptability and repeatability standards for DLCO met. DLCO is not hemoglobin corrected. Medications and Allergies were reviewed for possible drug interactions per policy. No contraindications or sensitivities were noted. Meds taken: Breo 8 hours and Duoneb 19 hours before testing. 2 puffs Albuterol (180 mcg) delivered by MDI via holding chamber. HR pre = 101/min, HR post = 102/min. //RK IMPRESSION: Spirometry shows no obstruction. The reduced FVC [...] rule out parenchymal or pulmonary vascular disorder. Electronically Signed On 03-29-2023 17:02:40 EST by Letitia Dodge MD ID: [id number] Name: CELSO WELLER Race: White Ht: 70.87 in Wt: 240.00 lbs Age: 42 Gender: Female : 1980 Dx: Bronchitis, not specified as acute or chronic Smoking Hx: Non-smoker Doctor: DON CHAN Test Date: 03/28/2023 Site: Tech: Perla Powell PRE-BRONCH POST-BRONCH Pre LLN Pred ULN %Pred Post %Pred %Chg SPIROMETRY FVC (L) 2.05 3.41 4.48 5.57 45 2.06 46 0 FEV1 (L) 1.67 2.74 3.63 4.47 45 1.73 47 1 FEV1/FVC 0.81 0.71 0.81 0.90 100 0.84 103 3 PEF L/s (L/sec) 6.85 5.97 8.07 10.17 84 6.91 85 0 FEF50 (L/sec) 2.65 2.76 4.36 5.97 60 3.21 73 20 FIF50 (L/sec) 4.56 4.40 -3 FEF50/FIF50 0.58 90-100 0.73 25 FIVC (L) 2.01 1.98 -1 IEX80-99 (L/sec) 1.76 2.20 3.64 5.38 48 2.24 61 27 Time (sec) 5.72 5.48 -4 FET PEF (sec) 0.07 0.07 7 ARUN (L) 0.08 0.08 3 Vol Extrap % (%) 4 4 3 LUNG DIFFUSION DLCOunc (ml/min/mmHg) 12.62 20.39 26.56 32.73 47 VA (L) 2.82 5.09 6.19 7.29 45 DLunc/VA (ml/min/mmHg/L) 4.47 3.11 4.43 5.75 100 BHT (sec) 9.48 IVC (L) 1.95 Comments: PRE AND POST BD JAE: ATS/ERS acceptability and repeatability standards for spirometry met. ATS/ERS acceptability and repeatability standards for DLCO met. DLCO is not hemoglobin corrected. Medications and Allergies were reviewed for possible drug interactions per policy. No contraindications or sensitivities were noted. Meds taken: Breo 8 hours and Duoneb 19 hours before testing. 2 puffs Albuterol (180 mcg) delivered by MDI via holding chamber. HR pre = 101/min, HR post = 102/min. //RK Latest Ref Rng & Units 03/28/2023 Spirometry Data FVC PRE (L) L 2.05 FVC POST (L) L 2.06 FEV1 PRE (L) L 1.67 FEV1_POST (L) L 1.73 FEV1/FVC PRE (%) % 81 FEV1/FVC POST (%) % 84 VVN47-97% PRE (L/S) L/S 1.76 YRT52-53% POST (L/S) L/S 2.24 PEF PRE (L/S) L/S 6.85 PEF POST (L/S) L/S 6.91 DLCO (ml/min/mmHg) ml/min/mmHg 12.62 VA (L) L 2.82 DLCO/VA (ml/min/mmHg/L) ml/min/mmHg/L 4.[address] Chest - Impression Only CT CHEST WO IVCON Collected: 07/17/2022 1:18 PM (Final result) Last XR Chest - Impression Only XR CHEST 2V FRONTAL/LAT Exam End: 11/21/2023 9:15 AM (Final result) Impression: IMPRESSION: 1. No interval change since 05/31/23. 2. Bilateral perihilar consolidative opacities, left greater than right, most likely related to post radiation change, stable. ... Recent Results (from the past 27220 hour(s)) ECHO Collection Time: 03/20/23 8:58 AM [...] * * * Final * * * 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 APRN.SEWAGE DISPOSAL ENGINEER December 17, 2023 This note was partially generated using Gen110 voice recognition system, and there may be some incorrect words, spellings, and punctuation that were not noted in checking the note before saving. documented in this encounter [facility] 12-16-2023 Telephone encounter Note Next visit 12/23/23 Irene Emely Last filled 11/14/23 Patient phones requesting refills as follows: Requested Prescriptions Pending Prescriptions Disp Refills oxyCODONE IR (ROXICODONE) 10 mg tab 60 tablet 0 Sig: Take 1 tablet by mouth two times a day as needed for pain for up to 30 days. Please review and advise. Kristina Pete RN [facility] 12-16-2023 Miscellaneous Notes Next visit 12/23/23 Irene Han Last filled 11/14/23 Patient phones requesting refills as follows: Requested Prescriptions Pending Prescriptions Disp Refills oxyCODONE IR (ROXICODONE) 10 mg tab 60 tablet 0 Sig: Take 1 tablet by mouth two times a day as needed for pain for up to 30 days. Please review and advise. Kristina Pete RN documented in this encounter [facility] 12-11-2023 History of Present illness Narrative Radiology Service Progress Note DATE OF SERVICE: December 11, 2023 TIME: 12:04 PM PATIENT WEIGHT: 231LBS PATIENT IDENTITY VERIFICATION COMPLETED USING TWO (2) STANDARD IDENTIFIERS: Name and Date of confirmed by patient verbally. FALL SCREENING: Has the patient had 2 falls in the last year or 1 fall with injury or currently using an Ambulatory Assistive Device (Walker, Cane, Wheelchair, Crutches, etc.)? No PATIENT GENDER DATA: Female. status: : No status: NO. ALLERGIES: Reviewed and unchanged CONTRAST ALLERGY: No EXAM: CT -CONTRAST INDUCED NEPHROPATHY RISK FACTORS: Not applicable CREATININE: Creatinine Date Value Ref Range Status 11/21/2023 0.71 0.58 - 0.96 mg/dL Final 11/11/2023 0.74 0.58 - 0.96 mg/dL Final 08/05/2023 0.90 0.58 - 0.96 mg/dL Final Estimated Glomerular Filtration Rate Date Value Ref Range Status 11/21/2023 110 >=60 mL/min/1.73m Final Comment: Estimated Glomerular Filtration Rate (eGFR) [...] Range Status 04/05/2021 >60 Final P.O.C.T. RESULTS: POC done: Yes, See Lab Tab December 11, 2023 TREATMENT: No Hydration needed. IV SITE: Ambulatory: A peripheral IV was started in the Right antecubital site with a Angio cath: 24 gauge. IV SITE APPEARANCE: Clean,Dry and Intact SIGNATURE: Mitzi Nash RN PATIENT NAME: Celso Weller DATE: December 11, 2023 TIME: 12:04 PM RADIOLOGY SERVICE PROGRESS NOTE SERVICE DATE: 12/11/2023 SERVICE TIME: 12:08 PM PATIENT IDENTITY VERIFICATION COMPLETED USING TWO (2) STANDARD IDENTIFIERS: Name and Date of confirmed by patient verbally POST EXAM PIV STATUS: Discontinued PROCEDURE TYPE: NM INJECT: PET/CT BODY SCAN. 13.9 mCi F18 FDG. No other medications given.. ADMINISTRATION TIME: 1204 PATIENT DISCHARGED TO: Ambulatory patient, left MO department area. A Diagnostic radioactive procedure has taken place, with no further precautions necessary other than routine body substance precautions. More information regarding radiation safety can be found using this link: [email or web address] SIGNATURE: RT Anaya(Junior) PATIENT NAME: Celso Weller DATE: December 11, 2023 TIME: 12:08 PM PAGER/CONTACT #: documented in this encounter [facility] 12-09-2023 Telephone encounter Note Patient Mycharts requesting refills as follows: Last ordered 09/30/2023. Next scheduled follow up appointment 12/23/2023. Requested Prescriptions Pending Prescriptions Disp Refills cyclobenzaprine (FLEXERIL) 10 mg tablet 60 tablet 0 Sig: Take 1 tablet by mouth two times a day as needed for muscle spasm. Kylie Mosher RN December 09, 2023 [facility] 12-09-2023 Miscellaneous Notes Patient Mycharts requesting refills as follows: Last ordered 09/30/2023. Next scheduled follow up appointment 12/23/2023. Requested Prescriptions Pending Prescriptions Disp Refills cyclobenzaprine (FLEXERIL) 10 mg tablet 60 tablet 0 Sig: Take 1 tablet by mouth two times a day as needed for muscle spasm. Kylie Mosher RN December 09, 2023 documented in this encounter [facility] 12-04-2023 History of Present illness Narrative Celso Weller returns to the office today and notes that she has not had any infections since we last saw her. She has been having post nasal drip rhinorrhea and mild cough. She has hoarseness and dry eyes. EXAM The patient appears comfortable in the office today. Lungs are clear to auscultation bilaterally. The oral mucosa is pink and healthy without any lesions or ulcers. The palate elevates in the midline. The nasal mucosa is pink and healthy. There is no epistaxis mucopus or nasal polyposis noted. The nasal septum is approximately in the midline. The skin is clear of any lesions, excoriations, or erythema. IMPRESSION: Pneumonia - she received pneumococcal tetanus and diphtheria vaccination in the office today and we agreed she would have titers drawn for these as well as SPEP in 4 weeks and follow-up in 2 months to discuss the results or sooner should problems arise. We agreed to obtain an SPEP due to her elevated IgE level. I explained that it is unclear whether some of her prior chest x-ray showed pneumonia as some of these were interpreted as postradiation changes in the lung field. We agreed to try and contact the radiologist and have them view several of her chest x-ray side by side to see if these are more consistent with pneumonia or postradiation changes. Chronic rhinitis - Given her rhinitis symptoms we agreed to perform skin testing to environmental allergens see her back in follow-up. I suggested she stop trazodone 5 days prior to that visit. documented in this encounter [facility] 12-02-2023 Telephone encounter Note Last Office Visit : 11/21/23 Next Office Visit: 01/14/24 Pharmacy electronically requests the following refill(s) Requested Prescriptions Pending Prescriptions Disp Refills umeclidinium-vilanterol (ANORO ELLIPTA) 62.5-25 mcg/actuation inhaler [Pharmacy Med Name: ANORO ELLIPTA 62.5-25 MCG INH] 60 Each 1 Sig: INHALE 1 INHALATION INSTRUCTED ONCE DAILY. Renetta Cuellar MA [facility] 12-02-2023 Miscellaneous Notes Last Office Visit : 11/21/23 Next Office Visit: 01/14/24 Pharmacy electronically requests the following refill(s) Requested Prescriptions Pending Prescriptions Disp Refills umeclidinium-vilanterol (ANORO ELLIPTA) 62.5-25 mcg/actuation inhaler [Pharmacy Med Name: ANORO ELLIPTA 62.5-25 MCG INH] 60 Each 1 Sig: INHALE 1 INHALATION INSTRUCTED ONCE DAILY. Renetta Cuellar MA documented in this encounter [facility] 11-28-2023 Telephone encounter Note Please see my chart message and advise. Thank you, HAMZAH Tolliver, MYNOR [employer] Business Analyst [facility] 11-28-2023 Miscellaneous Notes Please see my chart message and advise. Thank you, HAMZAH Tolliver, [employer] Business Analyst documented in this encounter [facility] 11-28-2023 History of Present illness Narrative Images from the original note were not included. Subjective Patient ID: Celso Weller is a 43 y.o. female who presents for 3 month. 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 Discussed vaccines Has neuropathy related to treatments Sees heme/onc- called them and asked them to move up her pet scan- scheduled in 2 weeks now Thyroid Labs nl may Asthma/restrictive lung disease Sees pulm- last visit 11/20 Ordered another chest xray- normal Changed her nebulizer Was recently hospitalized with pneumonia for the 3rd time this year Referred her to allergy/immunology- Dr Zavala- ordered labs She completed the labs- no results yet Has seen 2 different ENT about her hoarse voice No one knows anything Finished the longer taper of steroids Depression/anxiety PHQ9 today 5 Insomnia Takes trazodone 150 regularly Pharmacy wants the 150 mg tab GERD On protonix RT wrist pain Saw ortho and had cortisone injection- doing fine + neuropathy Takes gabapentin- taking 1 tablet 3/day Lately has been having crawling sensations Intermittent x 2 mo No specific pattern Willing to increase gabapentin- advised to slowly increase to 2 tabs - 3 x daily She is taking 2 tabs twice /day The crawling sensation is better Most of her adult life has struggled with frequent urination Saw urology- nothing found Always microscopic blood in her urine No leaking No nighttime frequency Trialed OAB med- detrol Anxiety is worse lately Gets very anxious about her breathing Gets worked up- almost starts to panic Worst is laying down at night- wheezing and harder to breath Ativan does help Decided to taper off the remeron at night and add low dose lexapro in the am She is off the remeron now and taking 10 mg of lexapro - was a little rough the first couple of weeks Mood is ok Was told she has terrible dry eye Has to use some eye drops otc x 4 weeks and then follow up for prescription drops Current Outpatient Medications on File Prior to Visit Medication Sig Dispense Refill atenolol (Tenormin) 50 MG tablet TAKE 1 TABLET BY MOUTH TWICE A DAY 180 tablet 3 baclofen (Lioresal) 5 MG tablet Take 5 mg by mouth in the morning and 5 mg in the evening and 5 mg before bedtime. escitalopram (Lexapro) 10 MG tablet Take 1 tablet (10 mg) by mouth Daily 30 tablet 5 fluocinonide (Lidex) 0.05 % cream Apply 1 application topically in the morning and 1 application before bedtime. gabapentin (Neurontin) 300 MG capsule Take 2 capsules (600 mg) by mouth in the morning and 2 capsules (600 mg) in the evening and 2 capsules (600 mg) before bedtime. 270 capsule 3 ipratropium-albuterol (Duo-Neb) 0.5-2.5 mg/3 mL nebulizer solution Take 3 mL by nebulization every 6 (six) hours ketoconazole (NIZOral) 2 % cream Apply 1 application topically 1 (one) time each day at the same time. levothyroxine (Synthroid, Levoxyl) 75 MCG tablet take 1 tablet by mouth every morning before meals 90 tablet 3 LORazepam (Ativan) 0.5 MG tablet Take 1 tablet (0.5 mg) by mouth 4 (four) times a day as needed for anxiety 120 tablet 2 oxyCODONE (Roxicodone) 10 MG immediate release tablet Take 10 mg by mouth every 4 (four) hours if needed. pantoprazole (ProtoNix) 40 MG EC tablet Take 40 mg by mouth in the morning. Probiotic Product (Probiotic Daily) capsule 1 (one) time each day at the same time. prochlorperazine (Compazine) 10 MG tablet Take 1 tablet (10 mg) by mouth every 6 (six) hours if needed for nausea 30 tablet 11 rivaroxaban (Xarelto) 10 MG tablet Take 1 tablet (10 mg) by mouth Daily 90 tablet 3 traZODone (Desyrel) 100 MG tablet Take 1 tablet (100 mg) by mouth as needed at bedtime for sleep 90 tablet 3 traZODone (Desyrel) 50 MG tablet take 1 tablet by mouth at bedtime if needed for 90 DAYS 90 tablet 3 [DISCONTINUED] predniSONE (Deltasone) 10 MG tablet Take 4 tablets (40 mg) by mouth Daily for 3 days, THEN 3 tablets (30 mg) Daily for 3 days, THEN 2 tablets (20 mg) Daily for 3 days, THEN 1 tablet (10 mg) Daily for 3 days. 30 tablet 0 [DISCONTINUED] rivaroxaban (Xarelto) 10 MG tablet Take 10 mg by mouth Daily [DISCONTINUED] tolterodine LA (Detrol LA) 2 MG 24 hr capsule Take 1 capsule (2 mg) by mouth Daily Do not crush, chew, or split. (Patient not taking: Reported on 11/28/2023) 30 capsule 3 No current facility-administered medications on file prior to visit. Allergies Allergen Reactions Chlorhexidine Unknown Sulfa Antibiotics Unknown I have reviewed and reconciled the history and medication list with the patient today. Review of Systems Constitutional: Positive for fatigue. Negative for fever and unexpected weight change. Respiratory: Positive for chest tightness, shortness of breath and wheezing. Negative for cough. Cardiovascular: Negative for chest pain, palpitations and leg swelling. Gastrointestinal: Negative for abdominal pain, constipation, diarrhea, nausea and vomiting. Neurological: Negative for headaches. Psychiatric/Behavioral: Positive for sleep disturbance. Negative for suicidal ideas. The patient is nervous/anxious. Visit Vitals BP 110/74 Pulse 99 Ht 6' SpO2 96% BMI 29.84 kg/m Smoking Status Former BSA 2.25 m Patient Health Questionnaire-2 Score: 1 Patient Health Questionnaire-9 Score: 5 Patient Health Questionnaire-9 Score: 5 Objective Physical Exam Constitutional: General: She is not in acute distress. Appearance: Normal appearance. HENT: Head: Comments: Hoarse voice noted Cardiovascular: Rate and Rhythm: Normal rate and regular rhythm. Pulses: Normal pulses. Heart sounds: Normal heart sounds. No murmur heard. No friction rub. No gallop. Pulmonary: Effort: Pulmonary effort is normal. No respiratory distress. Breath sounds: Normal breath sounds. No wheezing, rhonchi or rales. Musculoskeletal: General: Normal range of motion. Right lower leg: No edema. Left lower leg: No edema. Neurological: General: No focal deficit present. Mental Status: She is alert. Psychiatric: Mood and Affect: Mood normal. Behavior: Behavior normal. Thought Content: Thought content normal. Judgment: Judgment normal. Assessment/Plan 1. Major depressive disorder, single episode, mild (HCC) (CMS/HCC) Stable on med- PHQ9- score of 5 Monitor Continue same 2. Anxiety Improved slightly with change of med Using lexapro 10 mg and ativan prn monitor 3. Primary insomnia Pharmacy requested 150 mg tabs sent Continue same - traZODone (Desyrel) 150 MG tablet; Take 1 tablet (150 mg) by mouth as needed at bedtime for sleep Dispense: 30 tablet; Refill: 0 4. Restrictive lung disease 5. Mild intermittent asthma, unspecified whether complicated (CMS/HCC) Sees pulmonary Continue plan Monitor Saw allergy due to 3 episodes of pneumonia this year Had labs- advised to call them re: results- not able to see in epic 6. Acquired hypothyroidism (CMS/HCC) Stable Continue plan monitor 7. Nodular sclerosing Hodgkin's lymphoma, unspecified body region (CMS/HCC) Sees oncology Having a repeat pet scan in 2 weeks 10. Neuropathy Improved symptoms with increase in gabapentin Taking 2 tabs twice daily Continue same 11. Daily headache As above - CT head wo IV contrast; Future Sheila Lin NP We will continue to follow up with this patient on a continued marbleizer basis to monitor and treat the above listed problems as well as their other chronic illnesses as part of a longitudinal care plan documented in this encounter [facility] 11-26-2023 Telephone encounter Note Image have been imported [facility] 11-26-2023 Miscellaneous Notes Image have been imported Images from the original note were not included. NADIA form was faxed to [facility] this morning Confirmation was received Received CT and CXR image reports below from [facility] Sent reports for scanning in chart. Requested the images to be pushed as well documented in this encounter [facility] 11-26-2023 Telephone encounter Note Spoke to patient & rescheduled CT chest in [place] on 12/27/2023 @ 7:45 am. Also, her PET scan on @12 pm. [facility] 11-26-2023 Miscellaneous Notes Spoke to patient & rescheduled CT chest in [place] on 12/27/2023 @ 7:45 am. Also, her PET scan on @12 pm. Pt is scheduled for chest w/o in [place] 12/26/23. Pt typically gets her CT scans at our location. If she would like to complete here, please schedule,verses driving to [place]. Left VM for pt with this option as well. Jeny Nava RN PSS: Please call to arrange Jeny Nava RN Okay to schedule the patient's PET scan anytime at her convenience. Pt called to request PET to be completed now vs 6 months , as recommended 11/11/23 appt. She reports sleeping all the time and I just feel something is off, not right. No fevers, chills, nvd reported. Extreme fatigued is the only symptom. Pt followed up with PCP and pneumonia has cleared. BRM/HM: Please advise Jeny Nava RN documented in this encounter [facility] 11-26-2023 Telephone encounter Note Pt is scheduled for chest w/o in [place] 12/26/23. Pt typically gets her CT scans at our location. If she would like to complete here, please schedule,verses driving to [place]. Left VM for pt with this option as well. Jeny Nava RN [facility] 11-25-2023 Telephone encounter Note PSS: Please call to arrange Jeny Nava RN [facility] 11-25-2023 Telephone encounter Note Okay to schedule the patient's PET scan anytime at her convenience. [facility] Work Phone: 11-25-2023 Telephone encounter Note Pt called to request PET to be completed now vs 6 months , as recommended 11/11/23 appt. She reports sleeping all the time and I just feel something is off, not right. No fevers, chills, nvd reported. Extreme fatigued is the only symptom. Pt followed up with PCP and pneumonia has cleared. BRM/HM: Please advise Jeny Nava RN [facility] 11-21-2023 Telephone encounter Note Images from the original note were not included. NADIA form was faxed to [facility] this morning Confirmation was received Received CT and CXR image reports below from [facility] Sent reports for scanning in chart. Requested the images to be pushed as well [facility] 11-21-2023 Telephone encounter Note Images from the original note were not included. [facility] 11-21-2023 Miscellaneous Notes Images from the original note were not included. documented in this encounter [facility] 11-21-2023 History of Present illness Narrative Radiology Service Progress Note PATIENT NAME: Celso Weller DATE OF SERVICE: November 21, 2023 TIME: 9:14 AM PATIENT IDENTITY VERIFICATION COMPLETED USING TWO [...] PATIENT PRESENTS WITH AN IMPLANTABLE OR ATTACHED CHAIN SPLITTER: No RADIOLOGY DEPARTMENT: General X-ray: Exam(s) Completed: Chest X-Ray PERIPHERAL IV DATA: Not applicable SIGNED BY: RT Eugenio(R) November 21, 2023 9:14 AM documented in this encounter [facility] 11-21-2023 Instructions 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 APRN.PEDRO - 11/21/2023 8:53 AM EDT Thank you for coming to see me today. As discussed here is our plan. Airway clearance: Step 1: Open the airways with a bronchodilator - DUONEB Step 2: Hydrate the airways with an osmotic agent- Nebsal/Saline Step 3: Clear the mucus with an Airway Clearance Technique- Pickle Step 4: STIOLTO (only in AM) Start Mucinex BID OR NAC Please get a CT Chest in about 5-6 weeks Sputum samples only if you start producing Meet with GI and Speech (Aashish) documented in this encounter [facility] 11-21-2023 History of Present illness Narrative Images from the original note were not included. [facility] ESTABLISHED PATIENT OFFICE VISIT November 21, 2023 My final reccommendations will be communicated back to the requesting physician by way of shared medical record or US mail. ASSESSMENT/PLAN: 1. Pneumonia due to infectious organism, unspecified laterality, unspecified part of lung - ICD9: 486, ICD10: J18.9 (primary diagnosis) 2. Bronchiectasis without complication (HCC) - ICD9: 494.0, ICD10: J47.9 3. Restrictive lung disease - ICD9: 518.89, ICD10: J98.4 4. Oropharyngeal dysphagia - ICD9: 787.22, ICD10: R13.12 5. Voice impairment - ICD9: 784.40, ICD10: R49.9 Treated recently for pneumonia at [facility] with Levaquin and Doxycycline as well as an extended prednisone taper. Slow improvement but certainly not back to baseline. THIRD pneumonia infection this year. Unclear etiologies of pneumonia; currently working with Allergy/immunology to determine if there is an immune deficiency contributing. I would like to evaluate her lungs once well to check for any structural abnormalities which may be contributing. Will have her get a CT Chest in about 5 weeks time. Given the recurrence of pneumonia will STOP her ICS and have her maintained on LAMA/LABA. With the history of bronchiectasis she would benefit from more aggressive airway clearance which we discussed today. If she is able to start producing, will check sputum cultures and AFB; cups provided at this visit today. She should also be evaluated by ENT/Speech (Dr. Zendejas) for her voice impairment and GI to have her swallowing/muscle function evaluated. Will try to obtain chest imaging from [facility] for direct comparison. Airway clearance: To be done TWICE daily. Step 1: Open the airways with a bronchodilator - DUONEB Step 2: Hydrate the airways with an osmotic agent- Nebsal/Saline Step 3: Clear the mucus with an Airway Clearance Technique- Pickle Step 4: Maintenance inhaler - STIOLTO (only in AM) Start Mucinex BID OR NAC Follow up in 4-[address] Chest prior I have discussed the above recommendations in detail with the patient. Patient verbalizes understanding and is in agreement with plan as stated above. Patient has been instructed to call our office, their PCP, or go to the nearest emergency department for new or worsening problems, including but not limited to, increasing shortness of breath, cough, fever, or chills. 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 Post XRT restrictive lung disease, central bronchiectasis Former smoker. Presents today for follow-up regarding recent pneumonia infection. Admitted to [facility] for 3 days with pneumonia. This is her THIRD round of pneumonia this year. Treated with Levaquin and Doxycycline. Currently finishing a prednisone taper. She does feel better, but does not feel back to baseline. She tells me that each time she gets pneumonia she feels she does not return to her previous baseline. Admitted to issues with swallowing. Has MBS, they recommend GI evaluation but did not see any gross abnormalities and she was advised she could continue her regular diet. Feels thinks are getting stuck. Almost like she forgot how to swallow. She was overwhelmed with medical visits and did not follow up with GI. Admits to heartburn but this is well controlled with PPI currently. Working with allergy/immunology to see if there is an immune process leaving her more prone to pneumonia infections. Of note, she has a history of lymphoma, and she was previously treated with immunotherapy which ended in September of this year. She is currently in remission. Currently airway regimen: Trelegy 1 puff daily Duoneb three times daily Albuterol HFA infrequently. A complete ROS was preformed and all areas were negative except for what is listed in the HPI Most recent pulmonary office visit was on 08/06/2023 with Carole Ruano. Assessment + Plan for reference below: ASSESSMENT & PLAN Pneumonia due to infectious [...] continue to work on getting images/reports from [facility] for comparison. - OXIMETRY WITH AMBULATION prior to next visit (when off prednisone) to reassess need for supplemental oxygen with exertion. - - Patient previously returned her oxygen to the [employer] company. - Let me know if you feel your symptoms start to worsen again, or do not return to your usual baseline after completing antibiotics/steroids. I have reviewed and updated the complete medication list in the EMR. ALLERGIES Allergen Reactions Chlorhexidine Itching Severe skin irritation. Had used for central line care Sulfa (Sulfonamide * Rash IMMUNIZATIONS: Immunization History Administered Date(s) Administered Haemophilus influenzae b (Hib PRP-OMP) vaccine, 3-dose series (PEDVAX HIB) 10/14/2013 12/21/2013 03/11/2014 Haemophilus influenzae b-meningococcal bivalent (Zfm-NhaTN-JT) vaccine (MENHIBRIX) 10/14/2013 diphtheria tetanus (DT) vaccine, [...] vaccine 03/11/2014 PHYSICAL EXAMINATION: VITAL SIGNS: BP 119/66 (BP Site: Right Arm, BP Position: Sitting, BP Cuff Size: Large Adult) Pulse 92 Wt 103.9 kg (229 lb) LMP 11/18/2012 SpO2 94% BMI 32.06 kg/m O2: room air GENERAL: alert, well appearing HEENT: Sclera anicteric. no visible nasal discharge. Lips, tongue, and buccal mucosa without cyanosis or erythema. CV: Regular rate and rhythm. LE edema. PULM: Lungs are clear to auscultation bilaterally without wheezes, rhonchi or rales. Respirations are non-labored without accessory muscle use. MSK: Extremities warm and well perfused. without cyanosis. NEURO: A&O x 3 . Answers questions appropriately PSYCH: Mood and affect appropriate for situation. DATA REVIEW: I have personally reviewed the following: Most recent labs reviewed. Hemoglobin (g/dL) Date Value 11/11/2023 14.1 04/05/2021 15.3 Hematocrit (%) Date Value 11/11/2023 42.1 04/05/2021 45.8 WBC (k/uL) Date Value 11/11/2023 8.16 04/05/2021 8.31 Glucose (mg/dL) Date Value 11/11/2023 89 04/05/2021 127 Potassium (mmol/L) Date Value 11/11/2023 4.8 04/05/2021 4.4 Sodium (mmol/L) Date Value 11/11/2023 143 04/05/2021 140 Chloride (mmol/L) Date Value 11/11/2023 104 04/05/2021 105 CO2 (mmol/L) Date Value 11/11/2023 29 04/05/2021 27 Creatinine (mg/dL) Date Value 11/11/2023 0.74 04/05/2021 0.79 BUN (mg/dL) Date Value 11/11/2023 15 04/05/2021 12 Anion Gap (mmol/L) Date Value 11/11/2023 10 04/05/2021 8 Calcium (mg/dL) Date Value 04/05/2021 9.8 Calcium, Total (mg/dL) Date Value 11/11/2023 9.5 Protein, Total (g/dL) Date Value 11/11/2023 6.7 04/05/2021 7.1 Albumin (g/dL) Date Value 11/11/2023 4.3 04/05/2021 4.4 Bilirubin, Total (mg/dL) Date Value 11/11/2023 0.2 04/05/2021 0.5 Alkaline Phosphatase (U/L) Date Value 11/11/2023 74 04/05/2021 86 AST (U/L) Date Value 11/11/2023 34 04/05/2021 87 ALT (U/L) Date Value 11/11/2023 38 04/05/2021 106 Last Spirometry SPIROMETRY - BASELINE AND POST DILATOR Collected: 03/28/2023 1:39 PM (Final result) Narrative: [facility] [id number] [facility] [place] [address] Test Date: 2023-03-28 Pat Name: CELSO WELLER Department: Room: Gender: Female [employer]: : 1980 Requested By: Order Number: [id number] Reading MD: Letitia Dodge MD Interpretive Statements PRE AND POST BD JAE: ATS/ERS acceptability and repeatability standards for spirometry met. ATS/ERS acceptability and repeatability standards for DLCO met. DLCO is not hemoglobin corrected. Medications and Allergies were reviewed for possible drug interactions per policy. No contraindications or sensitivities were noted. Meds taken: Breo 8 hours and Duoneb 19 hours before testing. 2 puffs Albuterol (180 mcg) delivered by MDI via holding chamber. HR pre = 101/min, HR post = 102/min. //RK IMPRESSION: Spirometry shows no obstruction. The reduced FVC [...] rule out parenchymal or pulmonary vascular disorder. Electronically Signed On 03-29-2023 17:02:40 EST by Letitia Dodge MD ID: [id number] Name: CELSO WELLER Race: White Ht: 70.87 in Wt: 240.00 lbs Age: 42 Gender: Female : 1980 Dx: Bronchitis, not specified as acute or chronic Smoking Hx: Non-smoker Doctor: DON CHAN Test Date: 03/28/2023 Site: Tech: Perla Powell PRE-BRONCH POST-BRONCH Pre LLN Pred ULN %Pred Post %Pred %Chg SPIROMETRY FVC (L) 2.05 3.41 4.48 5.57 45 2.06 46 0 FEV1 (L) 1.67 2.74 3.63 4.47 45 1.73 47 1 FEV1/FVC 0.81 0.71 0.81 0.90 100 0.84 103 3 PEF L/s (L/sec) 6.85 5.97 8.07 10.17 84 6.91 85 0 FEF50 (L/sec) 2.65 2.76 4.36 5.97 60 3.21 73 20 FIF50 (L/sec) 4.56 4.40 -3 FEF50/FIF50 0.58 90-100 0.73 25 FIVC (L) 2.01 1.98 -1 BBD33-42 (L/sec) 1.76 2.20 3.64 5.38 48 2.24 61 27 Time (sec) 5.72 5.48 -4 FET PEF (sec) 0.07 0.07 7 ARUN (L) 0.08 0.08 3 Vol Extrap % (%) 4 4 3 LUNG DIFFUSION DLCOunc (ml/min/mmHg) 12.62 20.39 26.56 32.73 47 VA (L) 2.82 5.09 6.19 7.29 45 DLunc/VA (ml/min/mmHg/L) 4.47 3.11 4.43 5.75 100 BHT (sec) 9.48 IVC (L) 1.95 Comments: PRE AND POST BD JAE: ATS/ERS acceptability and repeatability standards for spirometry met. ATS/ERS acceptability and repeatability standards for DLCO met. DLCO is not hemoglobin corrected. Medications and Allergies were reviewed for possible drug interactions per policy. No contraindications or sensitivities were noted. Meds taken: Breo 8 hours and Duoneb 19 hours before testing. 2 puffs Albuterol (180 mcg) delivered by MDI via holding chamber. HR pre = 101/min, HR post = 102/min. //RK Latest Ref Rng & Units 03/28/2023 Spirometry Data FVC PRE (L) L 2.05 FVC POST (L) L 2.06 FEV1 PRE (L) L 1.67 FEV1_POST (L) L 1.73 FEV1/FVC PRE (%) % 81 FEV1/FVC POST (%) % 84 PHU79-89% PRE (L/S) L/S 1.76 INU92-54% POST (L/S) L/S 2.24 PEF PRE (L/S) L/S 6.85 PEF POST (L/S) L/S 6.91 DLCO (ml/min/mmHg) ml/min/mmHg 12.62 VA (L) L 2.82 DLCO/VA (ml/min/mmHg/L) ml/min/mmHg/L 4.[address] Chest - Impression Only CT CHEST WO IVCON Collected: 07/17/2022 1:18 PM (Final result) Last XR Chest - Impression Only XR CHEST 2V FRONTAL/LAT Exam End: 05/31/2023 3:43 PM (Final result) Impression: IMPRESSION: 1. No interval change since 04/19/23. 2. Postradiation changes in the left lung, stable. ... Recent Results (from the past 63053 hour(s)) ECHO Collection Time: 03/20/23 8:58 AM [...] * * * Final * * * 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 APRN.CNP November 20, 2023 This note was partially generated using [employer] voice recognition system, and there may be some incorrect words, spellings, and punctuation that were not noted in checking the note before saving. documented in this encounter [facility] 11-20-2023 History of Present illness Narrative Celso Weller is a very pleasant 43 y.o. year old female who comes to the office today with the chief complaint of recurrent pneumonia. Referred by Dr. Vail Patient has a history of asthma and Hodgkins lymphoma diagnosed in 2011. She recently had hospitalization for respiratory failure and her 3rd episode of pneumonia. She is a former smoker. She had recent immunoglobulin levels ordered which showed an IgG level of 836 in May of 2023. Her neutrophil count has been normal on multiple complete blood counts. She was on immunotherapy for 8 years for her lymphoma and this worked rather well for her. She had a normal PET scan in Feb of this year and her immunotherapy was stopped at that time and since then she has been hospitalized with pneumonia 3 times. She got mostly better with antibiotics and steroids. She is often on Benadryl and mucinex with post nasal drip and chronic cough. She has no HIV risk factors. She smoked from age 18 until 32. 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 Carver at the [facility] and she is on duoneb and albuterol HFA and Trelegy. She can walk 3 miles but she does have some dyspnea on exertion with rapid walking. She had wheeze with these episodes. She has never had the Pneumovax. EXAM The patient appears comfortable in the office today. Lungs are clear to auscultation bilaterally. The oral mucosa is pink and healthy without any lesions or ulcers. The palate elevates in the midline. The nasal mucosa is pink and healthy. There is no epistaxis mucopus or nasal polyposis noted. The nasal septum is approximately in the midline. The skin is clear of any lesions, excoriations, or erythema. IMPRESSION: Recurrent pneumonia. I explained that her 3 episodes of pneumonia in 1 year are certainly atypical so we agreed to obtain broad immunologic assessment with humoral immune survey, mitogen proliferation, CD4 count, and HIV testing as well as mannose binding lactate level. We agreed to obtain her prior chest x-ray results from [facility]. If the broad immunologic workup is unrevealing then it may be reasonable to look into other causes such as chronic lung disease or hypnotics/sedative use or tumor recurrence. documented in this encounter [facility] 11-14-2023 History of Present illness Narrative PALLIATIVE MEDICINE PROGRESS NOTE SERVICE DATE: November 14, 2023 IDENTIFICATION AND INTRODUCTION: Celso Weller is a 43 year old female This visit took place Virtually; I have communicated my name and active licensure. The patient's identity and physical location were verified at the time of this visit. The patient or their legal retail service representative has been informed of the risks and benefits of -- and alternatives to -- treatment through a remote evaluation and consents to proceed with the evaluation remotely. CHIEF COMPLAINT: Patient presents with: Pain Follow Up PERTINENT MEDICAL HISTORY: Celso Weller is a 43 yo female with a [...] received treatment with Keytruda per Dr. Abimael Hernandez (completed 05/01/22 - after 38 cycles). Imaging in July 2022 demonstrated a complete remission and is now under surveillance. PET/CT in 01/2023 and 05/2023 remained without evidence of disease. Palliative care is following for symptom control needs. Subjective Hospitalized for pneumonia at [facility]. D/c'ed on 10/31 Levaquin/doxy/steroid taper x 5 days Now on a 2nd steroid taper per family doctor. Says her lungs didn't sound great. That's when she went back on the steroids. Says her lungs feel inflamed No significant cough. Will see allergy/immunology Increased appetite Sleeping is a challenge. States she is hurting a lot more since decreasing oxycodone. End of day is worse with pain Still doing all her normal activities but more uncomfortable. APAP is being taken. Helps a little. A lot of headaches from prednisone compounding her symptoms. Currently taking oxycodone once a day in the morning to complete the taper. REVIEW OF SYSTEMS: Review of Systems Modified ESAS ([place] Symptom Assessment Scale) Information Provided By: Patient Pain: Moderate Nausea: None Loss of Appetite: None Constipation: None Shortness of Breath: Mild Drowsiness: None Tiredness: Mild Depression: None Anxiety: Mild How you feel overall: Fair Objective PHYSICAL EXAMINATION: [facility] 11/18/2012 Physical Exam Constitutional: General: She is not in acute distress. Pulmonary: Effort: Pulmonary effort is normal. No respiratory distress. Comments: No conversational dyspnea Neurological: Mental Status: She is alert and oriented to person, place, and time. Psychiatric: Mood and Affect: Mood normal. DATA: Diagnostic tests reviewed for today's visit: Most recent labs Creatinine Date Value Ref Range Status 11/11/2023 0.74 0.58 - 0.96 mg/dL Final CrCl cannot [...] APPROPRIATELY filled. No suspicious activity was identified. 11/14/2023 by Irene Han APRN.SEWAGE DISPOSAL ENGINEER Urine Screen Lab Results Component Value Date [...] Urine pH, Pain Ocasio 6.3 02/24/2021 Specific [place],Ur Pain Ocasio 1.012 02/24/2021 Oxidants,Ur 46 02/24/2021 Specimen Quality, Ur Pain Ocasio Specimen quality results within acceptable limits. 05/03/2014 Assessment & Plan (Z51.5) Encounter for palliative care (primary encounter diagnosis) - reviewed role of palliative care, contact info, and reasons to call. 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 Muscle cramps happening only intermittently. She has now developed severe xerostomia and significant fatigue. We have worked to taper medications that would cause such side effects. - continue cyclobenzaprine 10 mg BID PRN [...] not indicated for this type of pain. We have tapered, awaiting pain management evaluation on 11/27 to see if interventional procedures are available for her pain. - will continue oxycodone 10 mg BID PRN until plan of care is developed. (counseled on use of benzo and opioids together and increased risk of respiratory depression; narcan previously prescribed) - continue APAP 1000 mg TID - continue gabapentin 600 mg TID (self reported, taking 300/600/300 - advised to change to 300/300/600 to help target sleep) managed by PCP- did not tolerate transition to pregabalin - Voltaren ineffective - previously discussed duloxetine for co management of anxiety also - declined. now on lexapro per PCP (F43.22) Adjustment disorder with anxious mood - [...] Some elements copied from my note on 10/17/23, the elements have been updated and all reflect current decision making from today, 11/14/2023. Next Visit: 4 Weeks via virtual visit Palliative Medicine Nurse to do telephonic follow-up: Remedios Han APRN.CNP November 14, 2023 2:10 PM This note may have been partially generated using the Gen[employer] voice recognition system. While every effort was made to correct voice recognition errors, kindly be aware that some errors may occasionally occur. documented in this encounter [facility] 11-13-2023 Telephone encounter Note Palliative Medicine Care Coordination Follow up Phone Call Telephone call to Celso Junior Weller with no answer, left voicemail regarding her last appt was 10/16 with the plan to wean off the oxycodone. Let her know refill denied and to call back if she has any questions. Call back information given. Kylie Mosher RN November 13, 2023 8:39 AM [facility] 11-13-2023 Miscellaneous Notes Palliative Medicine Care Coordination Follow up Phone Call Telephone call to Cleso R Janee with no answer, left voicemail regarding her last appt was 10/16 with the plan to wean off the oxycodone. Let her know refill denied and to call back if she has any questions. Call back information given. Kylie Mosher RN November 13, 2023 8:39 AM Last pall care visit 10/16 at which time we weaned oxycodone and stopped completely. Please call to discuss with patient. Patient Mycharts requesting refills as follows: Last ordered 10/17/2023. Next scheduled follow up appointment 11/14/2023. Requested Prescriptions Pending Prescriptions Disp Refills oxyCODONE IR (ROXICODONE) 10 mg tab 42 tablet 0 Sig: Take 1 tablet by mouth two times a day for 14 days, THEN 0.5 tablets two times a day for 14 days. Kylie Mosher RN November 12, 2023 documented in this encounter [facility] 11-13-2023 Telephone encounter Note Last pall care visit 10/16 at which time we weaned oxycodone and stopped completely. Please call to discuss with patient. [facility] 11-12-2023 Telephone encounter Note Patient Mycharts requesting refills as follows: Last ordered 10/17/2023. Next scheduled follow up appointment 11/14/2023. Requested Prescriptions Pending Prescriptions Disp Refills oxyCODONE IR (ROXICODONE) 10 mg tab 42 tablet 0 Sig: Take 1 tablet by mouth two times a day for 14 days, THEN 0.5 tablets two times a day for 14 days. Kylie Mosher RN November 12, 2023 [facility] 11-11-2023 History of Present illness Narrative PATIENT NAME: Celso Weller DATE: 11/11/2023 PRIMARY CARE PHYSICIAN: Bee Vail MD OTHER PHYSICIANS: Dr. Cyn Hernandez; Dr. Gurpreet Unger; Irene Han CNP ([facility] Pall Med), Dr. Jane Del Valle ([facility] Rad Onc), Dr. Jani Carver ([facility] Pulmonary), Dr Radha Gamez ([facility] Dermatology) Portions of this encounter note have been copied from the note from 08/05/2023 and has been updated where appropriate, and reflect my current medical decision making from today. CC: This is a 43 year old female with recurrent Hodgkin's disease, seen for scheduled follow-up. INTERIM HISTORY: Celso Weller returns for scheduled follow-up. She was recently hospitalized for 2 weeks with pneumonia. She states that she is feeling better. At discharge she was scheduled an appointment with and environmental protection economist and senior staff consultant. She currently denies any fevers, chills, night sweats or signs/symptoms of infection. She denies any palpable lumps or bumps. No bleeding or abnormal bruising. She denies any signs of blood clots. She denies any strokelike symptoms, leg swelling or pain and chest pain. Her shortness of breath is back to her baseline. She denies any abdominal complaints. She denies any abnormal weight loss. He denies any unusual pain. There has been no change in her neuropathy. Overall she is doing well without any new particular complaints. No pain No change in neuropathy\ Crackles and dimished left base Since the patient's last visit here she [...] or weight loss. No unusual pain. MEDICATIONS: oxyCODONE IR (ROXICODONE) 10 mg tab Take 1 tablet by mouth two times a day for 14 days, THEN 0.5 tablets two times a day for 14 days. traZODone (DESYREL) 100 mg tablet Take 100 mg by mouth at bedtime as needed. AT BEDTIME. tolterodine ER (DETROL LA) 2 mg 24 hr capsule Take 2 mg by mouth once daily. cyclobenzaprine (FLEXERIL) 10 mg tablet Take 1 tablet by mouth two times a day as needed for muscle spasm. gabapentin (NEURONTIN) 300 mg capsule Take 2 [...] 12 inhalations in a 24 hour period. eofnsatmggz-envtppoyw-iqgynqwf (TRELEGY ELLIPTA) 200-62.5-25 mcg inhalation powder Inhale 1 Puff as instructed once daily. ipratropium-albuterol (DUONEB) 0.5 mg-3 mg(2.5 mg base)/3 mL nebu inhale contents of 1 vial ( 3 MILLILITERS ) in nebulizer by mouth and INTO THE LUNGS every 6 hours if needed for wheezing or shortness of breath prochlorperazine (COMPAZINE) 10 mg tablet take 1 tablet by mouth every 6 hours if needed LORazepam (ATIVAN) 0.5 mg take 1 tablet by mouth four times a day if needed for anxiety XARELTO 10 mg tablet take 1 tablet by mouth once daily Biotin 2,500 mcg cap fluocinonide (LIDEX) 0.05 % cream apply to affected area ON THE RIGHT HAND and legs TWICE A DAY levothyroxine (SYNTHROID) 75 mcg tablet Take 1 tablet by mouth once daily. triamcinolone acetonide (KENALOG) 0.1 % ointment APPLY TO THE AFFECTED AREA TWICE A DAY FOR 5 DAYS Lactobac no.41/Bifidobact no.7 (PROBIOTIC-10 ORAL) Take by mouth. atenolol (TENORMIN) 50 mg tablet take 1 tablet by mouth twice a day CHOLECALCIFEROL, VITAMIN D3, (VITAMIN D3 ORAL) Take 1,000 Units by mouth once daily. pantoprazole DR (PROTONIX) 40 mg tablet Take 1 tablet by mouth once daily. Vitamin B Comp and C No.3 (B COMPLEX PLUS VITAMIN C) 01-07-96-5-300 mg cap Take 1 tablet by mouth once daily. ALLERGIES: Chlorhexidine and [...] SYSTEMS: As above PHYSICAL EXAM: Vitals: BP 102/71 Pulse 101 Temp 36.2 C (97.1 F) (Temporal) Resp 16 Ht 180 cm (5' 10.87 ) LMP 11/18/2012 SpO2 96% BMI 32.07 kg/m General appearance: Well appearing, alert, in no acute distress, well-hydrated, well nourished. Skin: Skin color, texture, turgor normal, no suspicious rashes or lesions. Head: Normal. Eyes: Anicteric sclera. Pupils are equally round and reactive to light. Extraocular movements are intact. Ears: Negative findings: external ears normal to inspection and palpation. Oropharynx: negative Neck: Supple, no adenopathy; thyroid symmetric, normal size Lymph Nodes: No submandibular, cervical, supraclavicular, axillary, or inguinal lymphadenopathy present. Back: No tenderness to palpation. Lungs: Diminished left base. Crackles left base. Heart: Negative. RRR without murmur, gallop, or rubs. No ectopy. Abdomen: Normal abdominal exam, Abdomen soft, non-tender. Bowel sounds normal. No masses, organomegaly. Rectal: Not done. Extremities: Extremities normal. No deformities, edema, or skin discoloration. Good capillary refill. Musculoskeletal: No joint swelling, deformity, or tenderness. Peripheral pulses: Normal. LABORATORY DATA: Hemoglobin (g/dL) Date Value 11/11/2023 14.1 04/05/2021 15.3 Hematocrit (%) Date Value 11/11/2023 42.1 04/05/2021 45.8 WBC (k/uL) Date Value 11/11/2023 8.16 04/05/2021 8.31 Platelet Count (k/uL) Date Value 11/11/2023 271 04/05/2021 277 RADIOLOGY/OTHER STUDIES: 05/20/2023 PET scan IMPRESSION: HEAD/NECK: * No FDG avid neoplastic process. CHEST: * No FDG avid neoplastic process. * Small left pleural effusion; mildly increased in size in the interim. Otherwise no significant change in the appearance of the chest. ABDOMEN/PELVIS: * No FDG avid neoplastic process. MUSCULOSKELETAL: * No FDG avid neoplastic process. 04/02/2023 Chest x-ray ([facility]) Airspace opacities in the medial lungs could [...] PET scan at 6 months (November 2023). Ordered today. 2. Autologous bone marrow transplantation status (HCC) [...] depression. Continue management per PCP/[facility] palliative medicine. Ellyn Lopez APRN.CNP I spent a total of 30 minutes on the date of the service which included preparing to see the patient, [id number] patient care, completing clinical documentation, obtaining and/or reviewing separately obtained history, performing a medically appropriate examination, counseling and educating the patient/family/caregiver, ordering medications, tests, or procedures, communicating with other HCPs (not separately reported), communicating results to the patient/family/caregiver, and care coordination (not separately reported). documented in this encounter [facility] 11-08-2023 Telephone encounter Note Patient has an appt on 11/11/23 Would you like labs, if so place orders. Leatha Abarca MA [facility] 11-08-2023 Miscellaneous Notes Patient has an appt on 11/11/23 Would you like labs, if so place orders. Leatha Abarca MA documented in this encounter [facility] 11-06-2023 History of Present illness Narrative Images from the original note were not included. Subjective Patient ID: Celso Weller is a 43 y.o. female who presents for Hospital Follow-up. Hospital follow up 10/28-10/31/23 [facility] Pt admitted with sepsis, pneumonia, acute respiratory failure Presented with cough/congestion and fever/headache Treated with IV antibiotics Home on levaquin and doxycycline and prednisone Tolerating fine - almost done with the course She was following a UNPAID INTERN in the pulmonary dept She is no longer there Will message her to see about getting a follow up 3rd time this year being hospitalized for pneumonia Current Outpatient Medications on File Prior to Visit Medication Sig Dispense Refill atenolol (Tenormin) 50 MG tablet TAKE 1 TABLET BY MOUTH TWICE A DAY 180 tablet 3 baclofen (Lioresal) 5 MG tablet Take 5 mg by mouth in the morning and 5 mg in the evening and 5 mg before bedtime. escitalopram (Lexapro) 10 MG tablet Take 1 tablet (10 mg) by mouth Daily 30 tablet 5 fluocinonide (Lidex) 0.05 % cream Apply 1 application topically in the morning and 1 application before bedtime. gabapentin (Neurontin) 300 MG capsule Take 2 capsules (600 mg) by mouth in the morning and 2 capsules (600 mg) in the evening and 2 capsules (600 mg) before bedtime. 270 capsule 3 ipratropium-albuterol (Duo-Neb) 0.5-2.5 mg/3 mL nebulizer solution Take 3 mL by nebulization every 6 (six) hours ketoconazole (NIZOral) 2 % cream Apply 1 application topically 1 (one) time each day at the same time. levothyroxine (Synthroid, Levoxyl) 75 MCG tablet take 1 tablet by mouth every morning before meals 90 tablet 3 LORazepam (Ativan) 0.5 MG tablet Take 1 tablet (0.5 mg) by mouth 4 (four) times a day as needed for anxiety 120 tablet 2 oxyCODONE (Roxicodone) 10 MG immediate release tablet Take 10 mg by mouth every 4 (four) hours if needed. pantoprazole (ProtoNix) 40 MG EC tablet Take 40 mg by mouth in the morning. Probiotic Product (Probiotic Daily) capsule 1 (one) time each day at the same time. prochlorperazine (Compazine) 10 MG tablet Take 1 tablet (10 mg) by mouth every 6 (six) hours if needed for nausea 30 tablet 11 rivaroxaban (Xarelto) 10 MG tablet Take 10 mg by mouth Daily tolterodine LA (Detrol LA) 2 MG 24 hr capsule Take 1 capsule (2 mg) by mouth Daily Do not crush, chew, or split. 30 capsule 3 traZODone (Desyrel) 100 MG tablet Take 1 tablet (100 mg) by mouth as needed at bedtime for sleep 90 tablet 3 traZODone (Desyrel) 50 MG tablet take 1 tablet by mouth at bedtime if needed for 90 DAYS 90 tablet 3 [DISCONTINUED] mirtazapine (Remeron) 15 MG tablet Take 1 tablet (15 mg) by mouth at bedtime 30 tablet 0 No current facility-administered medications on file prior to visit. Allergies Allergen Reactions Chlorhexidine Unknown Sulfa Antibiotics Unknown I have reviewed and reconciled the history and medication list with the patient today. Review of Systems Constitutional: Negative for fatigue, fever and unexpected weight change. Respiratory: Negative for cough, chest tightness and wheezing. Cardiovascular: Negative for chest pain, palpitations and leg swelling. Gastrointestinal: Negative for abdominal pain, constipation, diarrhea, nausea and vomiting. Neurological: Negative for headaches. Psychiatric/Behavioral: Negative for sleep disturbance and suicidal ideas. Visit Vitals BP 114/80 Pulse 92 SpO2 98% Smoking Status Former Objective Physical Exam Constitutional: General: She is not in acute distress. Appearance: Normal appearance. Cardiovascular: Rate and Rhythm: Normal rate and regular rhythm. Pulses: Normal pulses. Heart sounds: Normal heart sounds. No murmur heard. No friction rub. No gallop. Pulmonary: Effort: Pulmonary effort is normal. No respiratory distress. Breath sounds: Decreased air movement present. Examination of the left-lower field reveals decreased breath sounds. Decreased breath sounds present. No wheezing, rhonchi or rales. Abdominal: General: Bowel sounds are normal. There is no distension. Palpations: Abdomen is soft. There is no mass. Tenderness: There is no abdominal tenderness. Musculoskeletal: General: Normal range of motion. Right lower leg: No edema. Left lower leg: No edema. Neurological: General: No focal deficit present. Mental Status: She is alert. Psychiatric: Mood and Affect: Mood normal. Behavior: Behavior normal. Thought Content: Thought content normal. Judgment: Judgment normal. Assessment/Plan 1. Pneumonia due to infectious organism, unspecified laterality, unspecified part of lung 2. Acute respiratory failure, unspecified whether with hypoxia or hypercapnia (CMS/HCC) 3. Restrictive lung disease History as above Recheck xray in 4 weeks from 10/28 Keep follow up Will refer to immunology for evaluation - XR chest 2 views; Future - Ambulatory referral to Immunology; Future Sheila Lin NP documented in this encounter [facility] 11-05-2023 Telephone encounter Note ER Summary report, cmp, cbc, CT chest and chest xray report printed from [employer]. Scanned and routed for review. [facility] 11-05-2023 Miscellaneous Notes ER Summary report, cmp, cbc, CT chest and chest xray report printed from [employer]. Scanned and routed for review. Please contact [facility] for Discharge summary Pt admitted 10/28-10/31/2023 documented in this encounter [facility] 11-05-2023 Telephone encounter Note Please contact [facility] for Discharge summary Pt admitted 10/28-10/31/2023 [facility] 10-29-2023 Telephone encounter Note Called and spoke to patient. She went to the ER, will update care team on her condition. [facility] 10-29-2023 Miscellaneous Notes Called and spoke to patient. She went to the ER, will update care team on her condition. 1st attempt Lvm to schedule follow up with first available provider, 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 is now available at [facility] October 29, 2023 documented in this encounter [facility] 10-29-2023 Telephone encounter Note 1st attempt Lvm to schedule follow up with first available provider, 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 is now available at [facility] [place] October 29, 2023 [facility] 10-18-2023 History of Present illness Narrative POPULATION HEALTH NAVIGATION OUTREACH Action/ Patient scheduled Reason for Outreach Care Gap/HCC or Scheduling Wellness Visits Care Gaps due: Specialty Scheduling Patient Contacted: Spoke to patient/parent/or legal guardian Patient identified by name and : Yes Care Gap/HCC/Scheduling Wellness actions taken: Patient scheduled/pended labs: Specialty Appointment Navigation Signature: Landy Lopez October 18, 2023 11:25 AM documented in this encounter [facility] 10-17-2023 History of Present illness Narrative PALLIATIVE MEDICINE PROGRESS NOTE SERVICE DATE: 10/17/2023 CHIEF COMPLAINT: follow up pain PERTINENT MEDICAL HISTORY: Celso Weller is a 43 yo female with a [...] received treatment with Keytruda per Dr. Abimael Hernandez (completed 05/01/22 - after 38 cycles). Imaging [...] feet, knees, SI Joint. Osteoarthritis. Modified ESAS ([place] Symptom Assessment Scale) Information Provided By: Patient [...] No suspicious activity was identified. 10/17/2023 by Irene Han APRN.SEWAGE DISPOSAL ENGINEER Urine Screen Lab Results Component Value Date [...] Urine pH, Pain Ocasio 6.3 02/24/2021 Specific [place],Ur Pain Ocasio 1.012 02/24/2021 Oxidants,Ur 46 02/24/2021 [...] target sleep) managed by PCP - Alli beth/eber - previously discussed duloxetine for co management [...] Visit: 4 Weeks via a virtual visit Irene Han APRN.CNP October 17, 2023 7:34 AM This note may have been partially generated using the [employer] voice recognition system. While every effort was made to correct voice recognition errors, kindly be aware that some errors may occasionally occur. documented in this encounter [facility] 10-15-2023 Procedure note Associated Ord er(s): [...] Supply Carrier Forehead 30 None NAME: Anh JULIANO Weber PATIENT NAME: Celso Weller DATE: October 15, 2023 TIME: 10:45 AM Comment: [facility] 10-15-2023 History of Present illness Narrative PULM FUNCTION: Provider: Carole Ruano APRN.SEWAGE DISPOSAL ENGINEER Oximetry - Ambulation: 1 documented in this encounter [facility] 10-15-2023 Procedure note Associated Ord er(s): [...] NAME: Anh Weber RRT PATIENT NAME: Celso Weller DATE: October 15, 2023 TIME: 10:45 AM Comment: documented in this encounter [facility] 10-10-2023 Telephone encounter Note Rx sent in [facility] 10-10-2023 Miscellaneous Notes Rx sent in documented in this encounter [facility] 10-09-2023 History of Present illness Narrative Radiology Service Progress Note PATIENT NAME: Celso Weller DATE OF SERVICE: October 09, 2023 TIME: [...] PATIENT PRESENTS WITH AN IMPLANTABLE OR ATTACHED CHAIN SPLITTER: No RADIOLOGY DEPARTMENT: General X-ray: Exam(s) Completed: Pelvis X-Ray: sacroiliac joints Lower Extremity X-Ray(s): Knee, AP / Lat / Tunne / Merchant Bilateral and Wt. Bearing and Foot, Bilateral and Wt. Bearing Upper Extremity X-Ray(s): Hand, bilateral PERIPHERAL IV DATA: Not applicable SIGNED BY: RT Fang(R) October 09, 2023 12:11 PM documented in this encounter [facility] 10-09-2023 History of Present illness Narrative Images from the original note were not included. Rheumatology Outpatient Clinic Date of Service: 10/09/2023 Patient: Celso Weller Medical Record: [id number] Primary Care Physician: Bee Vail MD Referring Provider: Irene Han [facility] [id number] Last Rheumatology visit: 06/09/2015 (with Yun Garcia) Chief complaint: New Patient Evaluation (PsA) Consultation requested by Irene Han APRN.CNP for an opinion regarding psoriatic arthritis. My final recommendations will be communicated back to the requesting physician by way of shared Medical record or letter to requesting physician via US mail. History of Present Illness Celso Weller is a 43 year old White female, [...] Sclerosis Mother Coronary Artery Disease Maternal Grandfather OR age 36 Coronary Artery Disease Paternal Grandfather [...] 12 inhalations in a 24 hour period. woinvdnlusg-tdrutwucq-xrdyjrbh (TRELEGY ELLIPTA) 200-62.5-25 mcg inhalation powder Inhale [...] C No.3 (B COMPLEX PLUS VITAMIN C) 26-58-34-5-300 mg cap Take 1 tablet by mouth [...] 42 Sm Antibody <1.0 AI <0.2 Ribosomal MAINTENANCE WORKER MUNICIPAL <1.0 AI <0.2 Chromatin Antibody <1.0 AI <0.2 SSA Antibody <1.0 AI <0.2 SSB Antibody <1.0 AI <0.2 MAINTENANCE WORKER MUNICIPAL Antibody <1.0 AI <0.2 Scleroderma Ab, IgG [...] 03/11/2014, 12/21/2013, 10/14/2013 Haemophilus influenzae b-meningococcal bivalent (Bbt-JnoJQ-BE) vaccine 10/14/2013 diphtheria tetanus (DT) vaccine, pediatric [...] feet, knees, SI joint Recommend follow-up with order analyst since her psoriasis seem to be active [...] which included preparing to see the patient, qbdg-dp-zqlq patient care, completing clinical documentation, obtaining and/or reviewing separately obtained history, performing a medically appropriate examination, counseling and educating the patient/family/caregiver, and ordering medications, tests, or procedures. This note was partially generated with the assistance of Gen[employer] voice recognition software. An attempt was made to correct any dictation errors however there may be some incorrect words, spellings, and punctuation. Simin Brandt MD [facility] Rheumatology Associate Staff [facility] [employer] Professionalsuperintendent [employer] [place] documented in this encounter [facility] 09-30-2023 Telephone encounter Note Duplicate refill request. Sent in separate refill encounter. Kylie Mosher RN September 30, 2023 1:25 PM [facility] 09-30-2023 Miscellaneous Notes Duplicate refill request. Sent in separate refill encounter. Kylie Mosher RN September 30, 2023 1:25 PM documented in this encounter [facility] 09-30-2023 Telephone encounter Note Patient Mycharts requesting refills as follows: Last ordered 08/06/2023 and 08/26/2023 Next scheduled follow up appointment 10/17/2023 with Irene Han CNP. Requested Prescriptions Pending Prescriptions Disp Refills [...] Please review and advise. Kylie Mosher RN [facility] 09-30-2023 Miscellaneous Notes Patient Mycharts requesting refills as follows: Last ordered 08/06/2023 and 08/26/2023 Next scheduled follow up appointment 10/17/2023 with Irene Han CNP. Requested Prescriptions Pending Prescriptions Disp Refills cyclobenzaprine (FLEXERIL) 10 mg tablet 60 tablet 0 Sig: Take 1 tablet by mouth two times a day as needed for muscle spasm. oxyCODONE IR (ROXICODONE) 10 mg tab 90 tablet 0 Sig: Take 1 tablet by mouth every 8 hours as needed for pain for up to 30 days. Please review and advise. Klyie Mosher RN documented in this encounter [facility] 09-25-2023 Telephone encounter Note No longer taking baclofen [facility] 09-25-2023 Miscellaneous Notes No longer taking baclofen Pharmacy requesting refills as follows: Last ordered 05/07/2023. Next scheduled follow up appointment 10/17/2023. Requested Prescriptions Pending Prescriptions Disp Refills baclofen 5 mg tablet [Pharmacy Med Name: BACLOFEN 5 MG TABLET] 90 tablet 2 Sig: take 1 tablet by mouth three times a day Kylie Mosher RN September 25, 2023 documented in this encounter [facility] 09-25-2023 Telephone encounter Note Pharmacy requesting refills as follows: Last ordered 05/07/2023. Next scheduled follow up appointment 10/17/2023. Requested Prescriptions Pending Prescriptions Disp Refills baclofen 5 mg tablet [Pharmacy Med Name: BACLOFEN 5 MG TABLET] 90 tablet 2 Sig: take 1 tablet by mouth three times a day Kylie Mosher RN September 25, 2023 [facility] 09-19-2023 History of Present illness Narrative PALLIATIVE MEDICINE PROGRESS NOTE SERVICE DATE: September 19, 2023 IDENTIFICATION AND INTRODUCTION: Celso Weller is a 43 year old female This visit took place Virtually; I have communicated my name and active licensure. The patient's identity and physical location were verified at the time of this visit. The patient or their legal retail service representative has been informed of the risks and benefits of -- and alternatives to -- treatment through a remote evaluation and consents to proceed with the evaluation remotely. CHIEF COMPLAINT: No chief complaint on file. PERTINENT MEDICAL HISTORY: Celso Weller is a 43 yo female with a [...] received treatment with Keytruda per Dr. Abimael Hernandez (completed 05/01/22 - after 38 cycles). Imaging [...] OF SYSTEMS: Review of Systems Modified ESAS ([place] Symptom Assessment Scale) Information Provided By: Patient Pain: Moderate Nausea: Mild Loss of Appetite: Mild Constipation: None Shortness of Breath: Moderate Drowsiness: None Tiredness: Moderate Depression: Mild Anxiety: Moderate How you feel overall: Fair Objective PHYSICAL EXAMINATION: [facility] 11/18/2012 Physical Exam Constitutional: General: She is [...] No suspicious activity was identified. 09/19/2023 by Irene Han APRN.SEWAGE DISPOSAL ENGINEER Urine Screen Lab Results Component Value Date [...] Urine pH, Pain Ocasio 6.3 02/24/2021 Specific [place],Ur Pain Ocasio 1.012 02/24/2021 Oxidants,Ur 46 02/24/2021 [...] Medicine Nurse to do telephonic follow-up: No Appeals Manager Services: per oncology SW Irene Han APRN.PEDRO September 19, 2023 6:35 AM This note may have been partially generated using the Gen110 voice recognition system. While every effort was made to correct voice recognition errors, kindly be aware that some errors may occasionally occur. documented in this encounter [facility] 09-18-2023 Instructions Anil Franco PA-C - 09/18/2023 9:31 AM EDT Voice eval and therapy with Viridiaan Jimenez, Sheila Ribeiro, Lee Zendejas, or Destiny Howard. documented in this encounter [facility] 09-18-2023 History of Present illness Narrative Images from the original note were not included. [facility] [place] FOLLOW-UP CLINIC NOTE CC: Ms. Weller is a 43 year old female who [...] clinically indicated. May consider consult to GI, RN DOCUMENTATION SPECIALIST Anil Franco PA-C [facility] ASSESSMENT: Dysphagia, unspecified type (primary encounter diagnosis) Hoarseness Lprd (laryngopharyngeal reflux disease) PLAN: - Reviewed and discussed results of MBS, XR esophagram with patient; all patient questions answered. Discussed MBS findings and recommendations with RN DOCUMENTATION SPECIALIST Cynthia Guajardo CCC-RN DOCUMENTATION SPECIALIST via [employer] message. - Consult to RN DOCUMENTATION SPECIALIST for voice therapy, per patient request - [...] evaluation in ER - Follow up after RN DOCUMENTATION SPECIALIST, GI evaluations; sooner if clinically indicated Anil Franco PA-C [facility] HPI: Since last visit, [...] developing pulmonary complications related to swallowing abilities. RN DOCUMENTATION SPECIALIST provided reflux precaution handout and contact information to schedule esophagram. RN DOCUMENTATION SPECIALIST recommends follow up with GI given noted [...] for pain for up to 30 days. jdtideacdhy-gjmhhtcwk-uysdpdgq (TRELEGY ELLIPTA) 200-62.5-25 mcg inhalation powder Inhale [...] C No.3 (B COMPLEX PLUS VITAMIN C) 79-47-02-5-300 mg cap Take 1 tablet by mouth [...] Sclerosis Mother Coronary Artery Disease Maternal Grandfather OR age 36 Coronary Artery Disease Paternal Grandfather [...] with patient. OUTSIDE RECORDS: None PROCEDURE: None Anil Franco PA-C [facility] Medical Decision Making: Problems: Low: Stable chronic illness Data: Unique test result(s) reviewed: 2 Risk: Low: Low risk from testing/treatment Medical Decision Making Level: 3 - Low documented in this encounter [facility] 09-16-2023 Telephone encounter Note Spoke with patient on 09/16/2023. Patient is rescheduled for her visit. [facility] 09-16-2023 Miscellaneous Notes Spoke with patient on 09/16/2023. Patient is rescheduled for her visit. documented in this encounter [facility] 08-29-2023 Telephone encounter Note Palliative Medicine Care Coordination Follow up Phone Call Patient identified by name and : Yes Spoke to: [facility] pharmacy and patient Nurse calling to follow up on refill of oxycodone per patient's concerns. . Patient called concerned because [facility] saying her oxycodone was too early to fill. She said we discussed last week she was leaving for vacation Tuesday 08/29 which is tomorrow until 09/10. Caitlin VASQUEZ covering for Irene Han CNP did put in a new prescription 08/25 to [facility]. Spoke with pharmacy and they have not [...] ok with this and will wait for [facility] to contact her. Kylie Mosher RN August 29, 2023 4:35 PM [facility] 08-29-2023 Miscellaneous Notes Palliative Medicine Care Coordination Follow up Phone Call Patient identified by name and : Yes Spoke to: [facility] pharmacy and patient Nurse calling to follow up on refill of oxycodone per patient's concerns. . Patient called concerned because [facility] saying her oxycodone was too early to fill. She said we discussed last week she was leaving for vacation Tuesday 08/29 which is tomorrow until 09/10. Caitlin VASQUEZ covering for Irene Han CNP did put in a new prescription 08/25 to [facility]. Spoke with pharmacy and they have not [...] ok with this and will wait for [facility] to contact her. Kylie Mosher RN August 29, 2023 4:35 PM documented in this encounter [facility] 08-27-2023 History of Present illness Narrative Associated Order(s): Additional Injections: R [...] Quervain's tenosynovitis Informed Consent Consent Obtained: Verbal [place] Protocol A moment to CARE was completed. [...] Sherly Bruner PA-C documented in this encounter [facility] 08-26-2023 Telephone encounter Note Patient requesting refills. She is leaving Tuesday 08/29 through 09/10 and only got 70 tablets last fill. Confirmed [facility] pharmacy Last ordered 08/06/2023 by Irene Han CNP Next scheduled follow up appointment 09/16/2023. Requested Prescriptions Pending Prescriptions Disp Refills oxyCODONE IR (ROXICODONE) 10 mg tab 90 tablet 0 Sig: Take 1 tablet by mouth every 8 hours as needed for pain for up to 30 days. Kylie Mosher RN August 26, 2023 [facility] 08-26-2023 Miscellaneous Notes Patient requesting refills. She is leaving Tuesday 08/29 through 09/10 and only got 70 tablets last fill. Confirmed [facility] pharmacy Last ordered 08/06/2023 by Irene Han CNP Next scheduled follow up appointment 09/16/2023. Requested Prescriptions Pending Prescriptions Disp Refills oxyCODONE IR (ROXICODONE) 10 mg tab 90 tablet 0 Sig: Take 1 tablet by mouth every 8 hours as needed for pain for up to 30 days. Kylie Mosher RN August 26, 2023 documented in this encounter [facility] 08-14-2023 Telephone encounter Note Last ov- 08/06/23 Next OV- 09/26/23 [...] Please review and advise. Renetta Cuellar MA [facility] 08-14-2023 Miscellaneous Notes Last ov- 08/06/23 Next OV- 09/26/23 Patient requests via [employer] refills as follows: Requested Prescriptions Pending Prescriptions Disp Refills ipratropium-albuterol (DUONEB) 0.5 mg-3 mg(2.5 mg base)/3 mL nebu 1620 mL 2 Sig: inhale contents of 1 vial ( 3 MILLILITERS ) in nebulizer by mouth and INTO THE LUNGS every 6 hours if needed for wheezing or shortness of breath Please review and advise. Renetta Cuellar MA documented in this encounter [facility] 08-12-2023 History of Present illness Narrative PALLIATIVE MEDICINE PROGRESS NOTE SERVICE DATE: August 12, 2023 IDENTIFICATION AND INTRODUCTION: Celso Weller is a 43 year old female This visit took place Virtually; I have communicated my name and active licensure. The patient's identity and physical location were verified at the time of this visit. The patient or their legal retail service representative has been informed of the risks and benefits of -- and alternatives to -- treatment through a remote evaluation and consents to proceed with the evaluation remotely. CHIEF COMPLAINT: No chief complaint on file. PERTINENT MEDICAL HISTORY: Celso Weller is a 43 yo female with a [...] received treatment with Keytruda per Dr. Abimael Hernandez (completed 05/01/22 - after 38 cycles). Imaging [...] OF SYSTEMS: Review of Systems Modified ESAS ([place] Symptom Assessment Scale) Information Provided By: Patient Pain: Mild Nausea: None Loss of Appetite: None Constipation: None Shortness of Breath: Mild Drowsiness: None Tiredness: Moderate Depression: None Anxiety: Moderate How you feel overall: Fair Objective PHYSICAL EXAMINATION: [facility] 11/18/2012 Physical Exam Constitutional: General: She is [...] No suspicious activity was identified. 08/12/2023 by Irene Han APRN.SEWAGE DISPOSAL ENGINEER Urine Screen Lab Results Component Value Date [...] Urine pH, Pain Ocasio 6.3 02/24/2021 Specific [place],Ur Pain Ocasio 1.012 02/24/2021 Oxidants,Ur 46 02/24/2021 [...] which included preparing to see the patient, zkor-xj-yyee patient care, completing clinical documentation, and counseling and educating the patient/family/caregiver. Some elements copied from my note on 07/11/23, the elements have been updated and all reflect current decision making from today, 08/12/2023. Next Visit: 4 Weeks via virtual visit Palliative Medicine Nurse to do telephonic follow-up: No Appeals Manager Services: None at this time Irene Han APRN.SEWAGE DISPOSAL ENGINEER August 12, 2023 1:35 PM This note may have been partially generated using the Dragon voice recognition system. While every effort was made to correct voice recognition errors, kindly be aware that some errors may occasionally occur. documented in this encounter [facility] 08-06-2023 History of Present illness Narrative Images from the original note were not included. . [facility] PULMONARY DEPARTMENT Follow-Up Clinic Note Ms. Weller is a 43 year old female who presents to the [facility] [place] for follow up of pneumonia. Patient's primary pari mutuel ticket seller is Dr. Carver. Last office visit was 06/28/23. 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 Former smoker. INTERVAL HPI/ROS Today Celso Weller is here to follow up on recent hospitalization for pneumonia 07/31/23-08/01/23. She started to feel chills and run down last week. Temp was 100.9, then 102.9 after acetaminophen on Saturday. Blood-tinged sputum with dark clots, which turned to bright red blood after discharge. SpO2 86% on room air. She was admitted to [facility] overnight for pneumonia. (Image request sent.) She [...] 5 tablets zuri... (REFER TO PRESCRIPTION NOTES). knthmkpczsb-ccchehwxf-xbulshyn (TRELEGY ELLIPTA) 200-62.5-25 mcg inhalation powder Inhale [...] C No.3 (B COMPLEX PLUS VITAMIN C) 32-40-95-5-300 mg cap Take 1 tablet by mouth [...] cooperative. DIAGNOSTICS Testing I Reviewed Today: See Runa for all available results and images. PFT/Procedures No new results. Imaging Image/report request sent x 2 to [facility] for CXR results from 08/01/23. Recent Results [...] Lymph 1.00 - 4.00 k/uL 2.35 Abs [place] <0.87 k/uL 0.84 Abs Eosin <0.46 k/uL [...] continue to work on getting images/reports from [facility] for comparison. - OXIMETRY WITH AMBULATION prior to next visit (when off prednisone) to reassess need for supplemental oxygen with exertion. - - Patient previously returned her oxygen to the [employer] company. - Let me know if you [...] which included preparing to see the patient, bnjd-rg-ilvr patient care, completing clinical documentation, obtaining and/or reviewing separately obtained history, performing a medically appropriate examination, counseling and educating the patient/family/caregiver, and ordering medications, tests, or procedures. Carole Ruano DNP, HEAT READER-PEDRO [facility] documented in this encounter [facility] 08-06-2023 Telephone encounter Note [facility] website checked and validated. All prescriptions have been APPROPRIATELY filled. No suspicious activity was identified. 08/06/2023 by Irene Han APRN.CNP Rx sent Irene Han APRN.CNP [facility] 08-06-2023 Miscellaneous Notes [facility] website checked and validated. All prescriptions have been APPROPRIATELY filled. No suspicious activity was identified. 08/06/2023 by Irene Han APRN.CNP Rx sent Irene Han APRN.CNP Patient Mycharts requesting refills as follows: [...] August 05, 2023 documented in this encounter [facility] 08-05-2023 Telephone encounter Note Patient Mycharts requesting refills as follows: [...] days. Kylie Mosher RN August 05, 2023 [facility] 08-05-2023 Telephone encounter Note She preferred to come into the office to see you. [facility] 08-05-2023 Miscellaneous Notes She preferred to come into the office to see you. Spoke with patient on 08/05/2023. Patient is rescheduled accordingly. documented in this encounter [facility] 08-05-2023 Telephone encounter Note Spoke with patient on 08/05/2023. Patient is rescheduled accordingly. [facility] 08-04-2023 History of Present illness Narrative PATIENT NAME: Celso Weller DATE: 08/05/2023 PRIMARY CARE PHYSICIAN: Bee Vail MD OTHER PHYSICIANS: Dr. Cyn Hernandez; Dr. Gurpreet Unger; Irene aHn CNP ([facility] Pall Med), Dr. Jane Del Valle ([facility] Rad Onc), Dr. Jani Carver ([facility] Pulmonary), Dr Radha Gamez ([facility] Dermatology) Portions of this encounter note have [...] for pain for up to 30 days. krpckbibwrd-ujcdkipex-csznfruh (TRELEGY ELLIPTA) 200-62.5-25 mcg inhalation powder Inhale [...] C No.3 (B COMPLEX PLUS VITAMIN C) 75-63-69-5-300 mg cap Take 1 tablet by mouth [...] FDG avid neoplastic process. 04/02/2023 Chest x-ray ([facility]) Airspace opacities in the medial lungs could [...] depression. Continue management per PCP/[facility] palliative medicine. Ruperto Ledezma MD documented in this encounter [facility] 08-01-2023 Telephone encounter Note 1st attempt LVM to schedule appointment, Noa Schwab August 01, 2023 [facility] 08-01-2023 Miscellaneous Notes 1st attempt LVM to schedule appointment, Noa Schwab August 01, 2023 Please contact Celso Weller to schedule hospital f/u visit with me at her earliest convenience next week. Carole Manuel documented in this encounter [facility] 08-01-2023 Telephone encounter Note Please contact Celso Weller to schedule hospital f/u visit with me at her earliest convenience next week. Carole Manuel [facility] 07-19-2023 History of Present illness Narrative Radiology Service Progress Note PATIENT NAME: Celso Weller DATE OF SERVICE: July 19, 2023 TIME: [...] PATIENT PRESENTS WITH AN IMPLANTABLE OR ATTACHED CHAIN SPLITTER: No RADIOLOGY DEPARTMENT: General X-ray: Exam(s) Completed: GI/ Procedure(s): Esophogram with barium contrast PERIPHERAL IV DATA: Not applicable SIGNED BY: RT Beverley(Junior) July 19, 2023 1:39 PM documented in this encounter [facility] 2023 Instructions Irene Han APRN.CNP - 2023 10:48 AM EDT Irene Han CNP Department of Palliative and Supportive Care Palliative Care - Specialty services in symptom management and support For questions or prescription refills, call: [phone] Saturday - Saturday 9AM-5PM ERVIN Corrales, RN - Airport Manager Please call 3-5 days in advance for medication refills Evenings, Weekends, Holidays: [phone] (ask for palliative medicine on-call provider) For appointments, cancellations or reschedule, call: [phone] documented in this encounter [facility] 2023 History of Present illness Narrative PALLIATIVE MEDICINE PROGRESS NOTE SERVICE DATE: 2023 Primary Site of Disease/Medical Illness: Hodgkin Lymphoma - CINDI CHIEF COMPLAINT: follow up on pain and fatigue PERTINENT MEDICAL HISTORY: Celso Weller is a 42 yo female with a [...] received treatment with Keytruda per Dr. Abimael Hernandez (completed 05/01/22 - after 38 cycles). Imaging in July 2022 demonstrated a complete remission and is now under surveillance. PET/CT in 01/2023 and 05/2023 remained without evidence of disease. Palliative care is following for symptom control needs. Subjective Last pall care visit 05/16/23 PET in May showed CINDI Followed up with pulmonology - inhaler changes, levsukumar for sputum culture positive for steno bacteria [...] during the day while awake. Modified ESAS ([place] Symptom Assessment Scale) Information Provided By: Patient [...] No suspicious activity was identified. 2023 by Irene Han APRN.SEWAGE DISPOSAL ENGINEER Urine Screen Lab Results Component Value Date [...] Urine pH, Pain Ocasio 6.3 02/24/2021 Specific [place],Ur Pain Ocasio 1.012 02/24/2021 Oxidants,Ur 46 02/24/2021 [...] Visit: 4 Weeks via a virtual visit Irene Han APRN.SEWAGE DISPOSAL ENGINEER 2023 6:35 AM This note may have been partially generated using the Gen[employer] voice recognition system. While every effort was made to correct voice recognition errors, kindly be aware that some errors may occasionally occur. documented in this encounter [facility] 07-10-2023 Note HNO ID: [id number] Author: CYNTHIA GUAJARDO CCC-RN DOCUMENTATION SPECIALIST Service: ? Author Type: Speech Language Pathologist Type: Progress Notes Filed: 07/10/2023 14:27 Note Text: Summary: MBSS Start of Care Date: 07/10/23 Onset Date: 05/22/23 [facility] MODIFIED BARIUM SWALLOW [...] developing pulmonary complications related to swallowing abilities. RN DOCUMENTATION SPECIALIST provided reflux precaution handout and contact information to schedule esophagram. RN DOCUMENTATION SPECIALIST recommends follow up with GI given noted [...] no knowledge). GOAL MET 07/10/23 SUBJECTIVE: Celso Weller is a 42 year old female seen [...] Consistencies Provided: Thin Liquids, Mildly Thick Liquids ([place] Thick), Pureed Solids, Soft and Bite-Sized Solids, [...] 4, Mildly Thick Liquids IDDSI Level 2 ([place] Thick), Thin Liquids IDDSI Level 0 Education: Education Learning Preferences: Explanation Barriers: None TREATMENT: Performed Modified Barium Swallowing Study (73618). Evaluation: Modified Barium Swallow Evaluation (56565) Education regarding findings from today's Modified Barium Swallowing study (fluoroscopic study) and suggested plans for tk (more content not included)... [facility] 07-10-2023 History of Present illness Narrative Summary: MBSS Start of Care Date: 07/10/23 Onset Date: 05/22/23 [facility] MODIFIED BARIUM SWALLOW [...] developing pulmonary complications related to swallowing abilities. RN DOCUMENTATION SPECIALIST provided reflux precaution handout and contact information to schedule esophagram. RN DOCUMENTATION SPECIALIST recommends follow up with GI given noted [...] no knowledge). GOAL MET 07/10/23 SUBJECTIVE: Celso Weller is a 42 year old female seen [...] embolism, PjP pneumonia, hypoxic respiratory failure in 2015, psoriatic arthritis OBJECTIVE: MEASURES WITH LEVEL OF FUNCTION: Instrumental Swallow Assessment Type: Modified Barium Swallow Study Modified Barium Swallow Views: Anterior-posterior position, Lateral position Position Of Patient During Assessment: Upright In Chair, Standing Barium Consistencies Provided: Thin Liquids, Mildly Thick Liquids ([place] Thick), Pureed Solids, Soft and Bite-Sized Solids, [...] 4, Mildly Thick Liquids IDDSI Level 2 ([place] Thick), Thin Liquids IDDSI Level 0 Education: Education Learning Preferences: Explanation Barriers: None TREATMENT: Performed Modified Barium Swallowing Study (70249). Evaluation: Modified Barium Swallow Evaluation (18894) Education regarding findings from today's Modified Barium Swallowing study (fluoroscopic study) and suggested plans for treatment were provided to the patient through verbal / written instruction, images and/or demonstration. Patient was able to demonstrate understanding of education provided this date. Billing: Modified Barium Swallow (71592) Total time: 25 minutes Cynthia Guajardo CCC-TANMAY documented in this encounter [facility] 07-10-2023 History of Present illness Narrative Radiology Service Progress Note PATIENT NAME: Celso Weller DATE OF SERVICE: July 10, 2023 TIME: [...] PATIENT PRESENTS WITH AN IMPLANTABLE OR ATTACHED CHAIN SPLITTER: No RADIOLOGY DEPARTMENT: General X-ray: Exam(s) Completed: GI/ Procedure(s): Modified barium swallow with barium contrast PERIPHERAL IV DATA: Not applicable SIGNED BY: RT Jasvir(R) July 10, 2023 2:04 PM documented in this encounter [facility] 07-10-2023 Note HNO ID: [id number] Author: NOVA LOW RT(Junior) Service: Radiology Author Type: Technologist Type: Progress Notes Filed: 07/10/2023 14:05 Note Text: Radiology Service Progress Note PATIENT NAME: Celso Weller DATE OF SERVICE: July 10, 2023 TIME: [...] PATIENT PRESENTS WITH AN IMPLANTABLE OR ATTACHED CHAIN SPLITTER: No RADIOLOGY DEPARTMENT: General X-ray: Exam(s) Completed: GI/ Procedure(s): Modified barium swallow with barium contrast PERIPHERAL IV DATA: Not applicable SIGNED BY: RT Jasvir(R) July 10, 2023 2:04 PM [facility] 06-28-2023 History of Present illness Narrative Images from the original note were not included. Celso Weller is a 42 year old female here [...] PFT: SPIROMETRY - BASELINE AND POST DILATOR ([id number]) - ordered on 03/28/23 Impression: Spirometry shows [...] were explained; patient consents to procedure. Clinician: Anil Franco PA-C Anesthesia: The patient was sprayed with [...] F/u with me in September as scheduled Jani Carver MD, [facility] [place] documented in this encounter [facility] 06-14-2023 Telephone encounter Note Spoke to patient and scheduled Cardiology appointment with Dr. Elliott at [facility] on 07/12/2023 with a Chest US same day prior also at [facility]. Patient added to Dr. Carver's schedule on 06/28/2023 at [facility] and added to wait list as well. Patient agreeable to all appointments. [facility] 06-14-2023 Miscellaneous Notes Spoke to patient and scheduled Cardiology appointment with Dr. Elliott at [facility] on 07/12/2023 with a Chest US same day prior also at [facility]. Patient added to Dr. Carver's schedule on 06/28/2023 at [facility] and added to wait list as well. Patient agreeable to all appointments. Spoke with patient and advised of message below. Patient verbalized understanding. Please call patient to help schedule as per below. Please let Celso know I've sent her a message with Dr. Carver's recommendations, then transfer to scheduling for cardiology referral and US chest. Ms. Weller also needs to be added onto Dr. Carver's schedule at [place] on Saturday06/28/23 at 11 am (it is a hospital day for her but adding her on per Dr. Carver). Dr. Carver would also like her put on the cancellation list for a sooner appt. CC PCP Carole Rick documented in this encounter [facility] 06-14-2023 Telephone encounter Note Spoke with patient and advised of message below. Patient verbalized understanding. Please call patient to help schedule as per below. [facility] 06-14-2023 Telephone encounter Note Please let Celso know I've sent her a message with Dr. Carver's recommendations, then transfer to scheduling for cardiology referral and US chest. Ms. Weller also needs to be added onto Dr. Carver's schedule at [place] on Saturday06/28/23 at 11 am (it is a hospital day for her but adding her on per Dr. Carver). Dr. Carver would also like her put on the cancellation list for a sooner appt. CC PCP Carole Rick [facility] 06-13-2023 Telephone encounter Note Images from the original note were not included. Received coverage denial letter from [employer] Medication:tiotropium bromide (SPIRIVA RESPIMAT) 2.5 mcg/actuation inhaler PA Status: Denied Please see alternative medications below [facility] 06-13-2023 Miscellaneous Notes Images from the original note were not included. Received coverage denial letter from [employer] Medication:tiotropium bromide (SPIRIVA RESPIMAT) 2.5 mcg/actuation inhaler PA Status: Denied Please see alternative medications below Images from the original note were not included. Received PA request via covermymeds for Spiriva Submitted E-PA Will wait for outcome documented in this encounter [facility] 06-13-2023 Telephone encounter Note Images from the original note were not included. Received PA request via covermymeds for Spiriva Submitted E-PA Will wait for outcome [facility] 06-13-2023 History of Present illness Narrative Images from the original note were not included. . [facility] PULMONARY DEPARTMENT Follow-Up Clinic Note Ms. Weller is a 42 year old female who presents to the [facility] [place] for follow up of ongoing bronchitis symptoms. Patient's primary pari mutuel ticket seller is Dr. Carver. Last office visit was 04/19/23 with me; HFU visit for influenza A PNA. 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 Former smoker. INTERVAL HPI/ROS Today Ms. Weller reports ongoing pulmonary issues since our last [...] spasm. azelastine 0.1% nasal spray Use 1 [place] in each nostril two times a day. [...] C No.3 (B COMPLEX PLUS VITAMIN C) 98-58-16-5-300 mg cap Take 1 tablet by mouth [...] cooperative. DIAGNOSTICS Testing I Reviewed Today: See [facility] for all available results and images. PFT/Procedures [...] Lymph 1.00 - 4.00 k/uL 2.11 Abs [place] <0.87 k/uL 0.67 Abs Eosin <0.46 k/uL [...] She will return this to her local [facility] lab. Given the complexity of her ongoing issues, I will reach out to her primary pari mutuel ticket seller Dr. Carver today to help further guide her treatment at this point. I will be in touch with recommendations. Ms. Weller verbalized understanding and is agreeable to this [...] which included preparing to see the patient, [id number] patient care, completing clinical documentation, performing a medically appropriate examination, counseling and educating the patient/family/caregiver, ordering medications, tests, or procedures, and communicating with other HCPs (not separately reported). Carole Ruano DNP, [facility] documented in this encounter [facility] 06-11-2023 Telephone encounter Note Pt informed of BRM message and denies any questions, needs or concerns at this time. Appointment verified. Jeny Nava RN [facility] 06-11-2023 Telephone encounter Note ----- Message from Ruperto Ledezma MD sent at 06/11/2023 12:10 PM EDT ----- Please inform the patient that her IgG levels are normal, would not benefit from infusions. Her TFTs are normal, continue current dose of Synthroid. If still infectious symptoms after completing Z-Ron she should start the Levaquin. We will see her back as scheduled. [facility] 06-11-2023 Miscellaneous Notes Pt informed of BRM message and denies any questions, needs or concerns at this time. Appointment verified. Jeny Nava RN ----- Message from Ruperto Ledezma MD sent at 06/11/2023 12:10 PM EDT ----- Please inform the patient that her IgG levels are normal, would not benefit from infusions. Her TFTs are normal, continue current dose of Synthroid. If still infectious symptoms after completing Z-Ron she should start the Levaquin. We will see her back as scheduled. documented in this encounter [facility] 06-10-2023 Telephone encounter Note PDMP website checked and validated. All prescriptions have been APPROPRIATELY filled. No suspicious activity was identified. 06/10/2023 by Irene Han APRN.SEWAGE DISPOSAL ENGINEER Rx sent Irene Han APRN.SEWAGE DISPOSAL ENGINEER [facility] 06-10-2023 Miscellaneous Notes PDMP website checked and validated. All prescriptions have been APPROPRIATELY filled. No suspicious activity was identified. 06/10/2023 by Irene Han APRN.SEWAGE DISPOSAL ENGINEER Rx sent Irene Han APRN.SEWAGE DISPOSAL ENGINEER Patient requesting refills as follows: Last ordered 05/13/2023. Next scheduled follow up appointment 2023. Requested Prescriptions Pending Prescriptions Disp Refills oxyCODONE IR (ROXICODONE) 10 mg tab 120 tablet 0 Sig: Take 1 tablet by mouth every 6 hours as needed for pain for up to 30 days. Kylie Mosher RN June 10, 2023 documented in this encounter [facility] 06-10-2023 Telephone encounter Note Patient requesting refills as follows: Last ordered 05/13/2023. Next scheduled follow up appointment 2023. Requested Prescriptions Pending Prescriptions Disp Refills oxyCODONE IR (ROXICODONE) 10 mg tab 120 tablet 0 Sig: Take 1 tablet by mouth every 6 hours as needed for pain for up to 30 days. Kylie Mosher RN June 10, 2023 [facility] 06-09-2023 History of Present illness Narrative PATIENT NAME: Celso Weller DATE: 06/10/2023 PRIMARY CARE PHYSICIAN: Bee Vail MD OTHER PHYSICIANS: Dr. Cyn Hernandez; Dr. Gurpreet Unger; Irene Han CNP ([facility] Pall Med), Dr. Jane Del Valle ([facility] Rad Onc), Dr. Jani Carver ([facility] Pulmonary), Dr Radha Gamez ([facility] Dermatology) Portions of this encounter note have [...] shortness of breath with chest tightness. Per [facility] pulmonary (Dr. Carver) she was given several [...] spasm. azelastine 0.1% nasal spray Use 1 [place] in each nostril two times a day. [...] C No.3 (B COMPLEX PLUS VITAMIN C) 68-44-60-5-300 mg cap Take 1 tablet by mouth [...] FDG avid neoplastic process. 04/02/2023 Chest x-ray ([facility]) Airspace opacities in the medial lungs could [...] - Exam was compared with the prior [facility] echocardiographic exam performed on 09/10/14. There is [...] to immunotherapy versus psoriasis. Continue management per [facility] dermatology. 7. Cancer associated pain - ICD9: [...] disease, extensive prior treatment, and multiple medications. Ruperto Ledezma MD documented in this encounter [facility] 05-31-2023 History of Present illness Narrative Radiology Service Progress Note PATIENT NAME: Celso Weller DATE OF SERVICE: May 31, 2023 TIME: [...] PATIENT PRESENTS WITH AN IMPLANTABLE OR ATTACHED CHAIN SPLITTER: No RADIOLOGY DEPARTMENT: General X-ray: Exam(s) Completed: Chest X-Ray PERIPHERAL IV DATA: Not applicable SIGNED BY: RT Rosangela(R) May 31, 2023 3:39 PM documented in this encounter [facility] 05-31-2023 History of Present illness Narrative This note was created using NoteWriter. Subjective Celso Weller is a 42 year old female. Patient [...] spasm. azelastine 0.1% nasal spray Use 1 [place] in each nostril two times a day. [...] C No.3 (B COMPLEX PLUS VITAMIN C) 35-96-62-5-300 mg cap Take 1 tablet by mouth [...] Sclerosis Mother Coronary Artery Disease Maternal Grandfather OR age 36 Coronary Artery Disease Paternal Grandfather [...] of applicable cost-sharing. Discussed case with Dr. Gabrielle Armenta - apprec recs. Will obtain chest xray at [facility]. Give breathing treatment and re-evaluate. Reviewed [...] 2023 4:03 PM documented in this encounter [facility] 05-28-2023 Miscellaneous Notes Last OV 04/19/2023 F/U 09/26/2023 Pharmacy requesting [...] wheezing or shortness of breath Rx #: [id number] Pharmacy comment: Please authorize 90 days supply for the patient. Please review and advise. Mitzi Han MA documented in this encounter [facility] 05-22-2023 History of Present illness Narrative Images from the original note were not included. [facility] [place] [facility] NOTE CC: Celso Weller is a 42 year old female who is seen at the request of 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 APRN, CNP for evaluation of dysphagia, unspecified [...] clinically indicated. May consider consult to GI, RN DOCUMENTATION SPECIALIST Anil Franco PA-C [facility] HPI: 42 year old [...] medication(s): Current Outpatient Medications Medication Sig pantoprazole (PROTONIX) 40 mg tablet Take 1 tablet [...] spasm. azelastine 0.1% nasal spray Use 1 [place] in each nostril two times a day. [...] C No.3 (B COMPLEX PLUS VITAMIN C) 58-73-84-5-300 mg cap Take 1 tablet by mouth [...] Sclerosis Mother Coronary Artery Disease Maternal Grandfather OR age 36 Coronary Artery Disease Paternal Grandfather [...] were explained; patient consents to procedure. Clinician: Anil Franco PA-C Anesthesia: The patient was sprayed with [...] complications. Findings were explained to the patient. Anil Franco PA-C [facility] Medical Decision Making: Problems: Moderate: 1+ chronic illnesses with change Data: Unique test(s) ordered: 2 Risk: Moderate: Moderate risk from testing/treatment and Drug management Medical Decision Making Level: 4 - Moderate documented in this encounter [facility] 05-20-2023 History of Present illness Narrative Radiology Service Progress Note DATE OF SERVICE: May 20, 2023 TIME: 12:52 PM PATIENT IDENTITY VERIFICATION COMPLETED USING TWO (2) STANDARD IDENTIFIERS: Name and Date of confirmed by patient verbally. FALL SCREENING: Has the patient had 2 falls in the last year or 1 fall with injury or currently using an Ambulatory Assistive Device (Walker, Cane, Wheelchair, Crutches, etc.)? No PATIENT GENDER DATA: Female. status: : No status: NO. EXAM: CT -CONTRAST INDUCED NEPHROPATHY RISK FACTORS: Not applicable CREATININE: Creatinine Date Value Ref Range Status 04/16/2023 0.75 0.58 - 0.96 mg/dL Final 01/28/2023 0.70 0.58 - 0.96 mg/dL Final 01/01/2023 0.68 0.58 - 0.96 mg/dL Final Estimated Glomerular Filtration Rate Date Value Ref Range Status 04/16/2023 103 >=60 mL/min/1.73m Final Comment: Estimated Glomerular Filtration Rate (eGFR) [...] Range Status 04/05/2021 >60 Final P.O.C.T. RESULTS: POC done: Yes, See Lab Tab May 20, 2023 TREATMENT: N/A IV SITE: Ambulatory: A peripheral IV was started in the Left antecubital site with a Angio cath: 22 gauge. IV SITE APPEARANCE: Clean,Dry and Intact SIGNATURE: Edilma Song RN PATIENT NAME: Celso Weller DATE: May 20, 2023 TIME: 12:52 PM RADIOLOGY SERVICE PROGRESS NOTE SERVICE DATE: 05/20/2023 SERVICE TIME: 1:01 PM PATIENT IDENTITY VERIFICATION COMPLETED USING TWO (2) STANDARD IDENTIFIERS: Name and Date of confirmed by patient verbally FALL SCREENING: Has the patient had 2 falls in the last year or 1 fall with injury or currently using an Ambulatory Assistive Device (Walker, Cane, Wheelchair, Crutches, etc.)? No PATIENT GENDER DATA: .female : No ALLERGIES: Reviewed and unchanged MEDICATIONS REVIEWED: Yes PATIENT RELEVANT IMPLANT DATA REVIEWED: Not Applicable PATIENT PRESENTS WITH AN IMPLANTABLE OR ATTACHED CHAIN SPLITTER: No IV SITE: lt ac POST EXAM PIV STATUS: Discontinued PROCEDURE TYPE: NM INJECT: PET/CT BODY SCAN. 12.1 mCi F18 FDG. No other medications given.. ADMINISTRATION TIME: 1255 PATIENT DISCHARGED TO: Ambulatory patient, left [place] department area. A Diagnostic radioactive procedure has taken place, with no further precautions necessary other than routine body substance precautions. More information regarding radiation safety can be found using this link: [email or web address] SIGNATURE: RT Vonda(R) PATIENT NAME: Celso Weller DATE: May 20, 2023 TIME: 1:01 PM PAGER/CONTACT #: documented in this encounter [facility] 05-13-2023 Miscellaneous Notes PDMP website checked and validated. All prescriptions have been APPROPRIATELY filled. No suspicious activity was identified. 05/13/2023 by Irene Han APRN.SEWAGE DISPOSAL ENGINEER Rx sent Irene Han APRN.SEWAGE DISPOSAL ENGINEER Patient requesting refills as follows: Last ordered 04/08/2023. Next scheduled follow up appointment 05/16/2023. Requested Prescriptions Pending Prescriptions Disp Refills oxyCODONE IR (ROXICODONE) 10 mg tab 120 tablet 0 Sig: Take 1 tablet by mouth every 6 hours as needed for pain for up to 30 days. Kylie Mosher RN May 13, 2023 documented in this encounter [facility] 05-07-2023 Miscellaneous Notes Pharmacy requesting refills as follows: Last ordered 01/07/2023 Next scheduled follow up appointment 05/16/2023. Requested Prescriptions Pending Prescriptions Disp Refills baclofen 5 mg tablet [Pharmacy Med Name: BACLOFEN 5 MG TABLET] 90 tablet 1 Sig: take 1 tablet by mouth three times a day Kylie Mosher RN May 07, 2023 documented in this encounter [facility] 04-19-2023 History of Present illness Narrative Radiology Service Progress Note PATIENT NAME: Celso Weller DATE OF SERVICE: April 19, 2023 TIME: [...] PATIENT PRESENTS WITH AN IMPLANTABLE OR ATTACHED CHAIN SPLITTER: No RADIOLOGY DEPARTMENT: General X-ray: Exam(s) Completed: Chest X-Ray PERIPHERAL IV DATA: Not applicable SIGNED BY: RT Nishant(R) April 19, 2023 9:31 AM documented in this encounter [facility] 04-19-2023 History of Present illness Narrative Images from the original note were not included. . [facility] PULMONARY DEPARTMENT Follow-Up Clinic Note Ms. Weller is a 42 year old female who presents to the [facility] [place] for follow up of hospitalization for pneumonia secondary to influenza. Patient's primary pari mutuel ticket seller is Dr. Carver. 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 Last Pulmonary Office Visit A&P with 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 03/28/23 ASSESSMENT/PLAN: 1. Restrictive lung disease - [...] difficulty swallowing and persistent hoarseness. Refer to [facility] ENT for repeat flex scope and assistance with management. Will need to consider MBS as well pending evaluation 6. History of pulmonary embolism - ICD9: V12.55, ICD10: Z86.711 In the setting of malignancy. On life long anticoagulation with Xarelto. Follow up in [address] Mehul CHAMPION/MINH Ms. Weller reports she started to feel ill on [...] to worsen, and she went went to [facility] ED 03/31/23. SARS-CoV-2 TARA testing done at that time was negative. She was also negative for influenza A/influenza B antigens at that time. She was diagnosed with nonspecific viral illness and advised to stop molnupiravir at that time. Symptoms further worsened, especially dyspnea and wheezing, so she returned to [facility] ED 04/02/2023. This time she tested positive [...] daily. azelastine 0.1% nasal spray Use 1 [place] in each nostril two times a day. [...] C No.3 (B COMPLEX PLUS VITAMIN C) 91-24-25-5-300 mg cap Take 1 tablet by mouth [...] cooperative. DIAGNOSTICS Testing I Reviewed Today: See [facility] for all available results and images. PFT/Procedures [...] follow-up - ICD9: V67.59, ICD10: Z09 Ms. Weller reports persistent wheezing, dyspnea, and sinus congestion. [...] - Will request most recent images from [facility] for comparison Follow up with Dr. Carver in Sep 2023 as already scheduled, and as needed. Contact Dr. Carver and myself for any persistent symptoms that do not return to baseline post-treatment. Patient instructed to call our office, PCP, or go to the emergency department for new or worsening problems or symptoms. Carole Ruano DNP, [facility] [place] I spent a total of 46 minutes on the date of the service which included preparing to see the patient, [id number]-up-[id number] patient care, completing clinical documentation, obtaining and/or reviewing separately obtained history, performing a medically appropriate examination, counseling and educating the patient/family/caregiver, and ordering medications, tests, or procedures. documented in this encounter [facility] 04-16-2023 History of Present illness Narrative PATIENT NAME: Celso Weller DATE: 04/16/2023 PRIMARY CARE PHYSICIAN: Bee Vail MD OTHER PHYSICIANS: Dr. Cyn Hernandez; Dr. Gurpreet Unger; Irene Han CNP ([facility] Pall Med), Dr. Jane Del Valle ([facility] Rad Onc), Dr. Jani Carver ([facility] Pulmonary), Dr Radha Gamez ([facility] Dermatology) Portions of this encounter note have [...] shortness of breath. She was seen at [facility] emergency room on 03/30/2023, and apparently her [...] daily. azelastine 0.1% nasal spray Use 1 [place] in each nostril two times a day. [...] C No.3 (B COMPLEX PLUS VITAMIN C) 42-49-59-5-300 mg cap Take 1 tablet by mouth [...] 04/05/2021 277 RADIOLOGY/OTHER STUDIES: 04/02/2023 Chest x-ray ([facility]) Airspace opacities in the medial lungs could [...] per [facility] pulmonary. She was hospitalized at [facility] 04/02/2023 through 04/04/2023 with apparent influenza A and community-acquired pneumonia. Clinically improved with antibiotics. Currently on a prednisone taper. Per patient request we will arrange for follow-up with her [facility] pari mutuel ticket seller (Dr. Carver). 4. History of pulmonary embolism [...] disease, extensive prior treatment, and multiple medications. Ruperto Ledezma MD documented in this encounter [facility] 04-08-2023 Miscellaneous Notes PDMP website checked and validated. All prescriptions have been APPROPRIATELY filled. No suspicious activity was identified. 04/08/2023 by Irene Han APRN.SEWAGE DISPOSAL ENGINEER Rx sent Irene Han APRN.SEWAGE DISPOSAL ENGINEER Patient requesting refills as follows: Last ordered [...] April 08, 2023 documented in this encounter [facility] 04-01-2023 Miscellaneous Notes Patient will need lab orders for Saturday04/16/23. Thanks. Jeny Robert MA documented in this encounter [facility] 03-29-2023 History of Present illness Narrative Subjective Patient ID: Celso Weller is a 42 y.o. female who presents for covid +. Pt seen via telehealth using real time, two way, audio and video communication in place of an office visit. Pt gave verbal consent to this visit. Pt is currently located in her home in [place]. --- Appt for Covid + --- Onset [...] Refill: 0 documented in this encounter [facility] 03-28-2023 Instructions 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 APRN.[facility] - 03/28/2023 2:41 PM EST Continue Breo [...] any runs out. documented in this encounter [facility] 03-28-2023 History of Present illness Narrative Images from the original note [...] fever, or chills. Electronically signed by 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 APRN.[facility] [place], [facility] March 28, 2023 2:55 PM Time Spent: 37 minutes INTERVAL HPI: Celso Weller is a 42 year old female who [...] few weeks but is interested in a [facility] ENT if we can find one near [...] 10/14/2013 12/21/2013 03/11/2014 Haemophilus influenzae b-meningococcal bivalent (Cae-BtbMI-WF) vaccine (MENHIBRIX) 10/14/2013 diphtheria tetanus (DT) vaccine, [...] suggestive of air trapping, less conspicuous. 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 APRN.CNP March 28, 2023 This note was partially generated using Gen110 voice recognition system, and there may be some incorrect words, spellings, and punctuation that were not noted in checking the note before saving. documented in this encounter [facility] 03-28-2023 Procedure note Associated Ord er(s): [...] NAME: Perla Powell RRT PATIENT NAME: Celso Weller DATE: March 28, 2023 TIME: 1:59 PM documented in this encounter [facility] 03-28-2023 History of Present illness Narrative PULM FUNCTION SMARTBLOCK: Provider: Don Chan APRN.SEWAGE DISPOSAL ENGINEER Spirometry w/BD: 1 DLCO: 1 Exhaled Nitric Oxide: 1 documented in this encounter [facility] 01-29-2023 Evaluation note Encounter Date Diagnosis [...] no improvement in 2 to 3 days [employer] Other 12-11-2023 Miscellaneous Notes* Telephone Encounter - Edilma Song RN - 01/28/2023 1:47 PM EST Pt here for PET Benny labs for office f/u next week Please sign pended cortisol level if needed for f/u. Pt requested level Thank You! Edilma Song RN documented in this encounterFlower [facility]12-11-2023 History of Present illness Narrative* Bee Singleton, RT(R) - 01/28/2023 1:30 PM EST RADIOLOGY SERVICE PROGRESS NOTE SERVICE DATE: 01/28/2023 SERVICE TIME: 1:51 PM PATIENT IDENTITY VERIFICATION COMPLETED USING TWO (2) STANDARD IDENTIFIERS: Name and Date of confirmed by patient verbally POST EXAM PIV STATUS: Discontinued PROCEDURE TYPE: NM INJECT: PET/CT BODY SCAN. 13.9 mCi F18 FDG. No other medications given.. ADMINISTRATION TIME: 1345 PATIENT DISCHARGED TO: Ambulatory patient, left [place] department area. A Diagnostic radioactive procedure has taken place, with no further precautions necessary other than routine body substance precautions. More information regarding radiation safety can be found usingthis link: [email or web address]%[email or web address]%20Medicine%[email or web address] SIGNATURE: RT Anaya(Junior) PATIENT NAME: Celso Weller DATE: January 28, 2023 TIME: 1:51 PM PAGER/CONTACT #: * Edilma Song RN - 01/28/2023 1:30 PM EST Radiology Service Progress Note DATE OF SERVICE: January 28, 2023 TIME: 1:53 PM PATIENT IDENTITY VERIFICATION COMPLETED USING TWO (2) STANDARD IDENTIFIERS: Name and Date of confirmed by patient verbally. FALL SCREENING: Has the patient had 2 falls in the last year or 1 fall with injury or currently using an Ambulatory Assistive Device (Walker, Cane, Wheelchair, Crutches, etc.)? No PATIENT GENDER DATA: Female. status: : No status: NO. EXAM: CT -CONTRAST INDUCED NEPHROPATHY RISK FACTORS: Not applicable CREATININE: Creatinine Date Value Ref Range Status 01/01/2023 0.68 0.58 - 0.96 mg/dL Final 05/14/2022 0.70 0.58 - 0.96 mg/dL Final 04/30/2022 0.69 0.58 - 0.96 mg/dL Final Estimated Glomerular Filtration Rate Date Value Ref Range Status 01/01/2023 113 >=60 mL/min/1.73m Final Comment: Estimated Glomerular Filtration Rate (eGFR) is calculated using the 2020 CKD-EPI creatinine equation. This equation utilizes serum creatinine, sex, and age as parameters. The creatinine assay has traceable calibration to isotope dilution- mass spectrometry. Refer to KDIGO guidelines for clinical interpretation. In patients with unstable renal function, e.g. those with acute kidney injury, the eGFRmay not accurately reflect actual GFR. eGFR- Date Value Ref Range Status 04/05/2021 >60 Final P.O.C.T. RESULTS: POC done: Yes, See Lab Tab January 28, 2023 TREATMENT: N/A IV SITE: Ambulatory: A peripheral IV was started in the Left antecubital site with a Angio cath: 22gauge. IV SITE APPEARANCE: Clean,Dry and Intact SIGNATURE: Edilma Song RN PATIENT NAME: Celso Weller DATE: January 28, 2023 TIME: 1:53 PM documented in this encounterF[facility] Hospital11-20-2023 Miscellaneous Notes* Telephone Encounter - Kristina Pete RN - 01/07/2023 8:12 AM EST Next visit Irene Han 02/28/23 Patient phones requesting refills as follows: [...] advise. Kristina Pete RN documented in this encounterFlower Hospital11-16-2023 Miscellaneous Notes* Telephone Encounter - Anh [...] 01/02/2023 3:34 PM EST ----- Message from Bee Cason RN sent at 01/02/2023 3:28 PM EST ----- ----- Message ----- From: Ruperto Ledezma MD Sent: 01/02/2023 2:55 PM EST To: Bee Cason RN Please inform the patient that her cortisol level is markedly low, which may be contributing to hermuscle cramps and fatigue. I would suggest hydrocortisone 20 mg twice daily. We will then adjust dosage when she is feeling better and labs are back to baseline. documented in this encounterFlower Hospital11-14-2023 History of Present illness Narrative* Ruperto Ledezma MD - 01/01/2023 7:39 AM EST PATIENT NAME: Celso Weller DATE: 01/01/2023 PRIMARY CARE PHYSICIAN: Bee Vail MD OTHER PHYSICIANS: Dr. Cyn Hernandez; Dr. Gurpreet Unger; Irene Han CNP ([facility] Pall Med), Dr. Jane Del Valle ([facility] Rad Onc), Dr. Jani Carver ([facility] Pulmonary), Dr Radha Gamez ([facility] Dermatology) CC: This is a [...] C No.3 (B COMPLEX PLUS VITAMIN C) 30-90-50-5-300 mg cap^Take 1 tablet by mouth once [...] on current medications. Continue management per PCP. Ruperto Ledezma MD documented in this encounterFlower Hospital10-30-2023 Miscellaneous Notes* Telephone Encounter - Mitzi Brown - 12/17/2022 2:33 PM EDT Called patient and rescheduled with PFT's to January 03 and FU with SARAH documented in this encounterFlower Hospital09-18-2023 Miscellaneous Notes* Telephone Encounter - Irene Han APRN.SEWAGE DISPOSAL ENGINEER - 11/05/2022 4:38 PM EDT PDMP website checked and validated. All prescriptions have been APPROPRIATELY filled. No suspiciousactivity was identified. 11/05/2022 by Irene Han APRN.CNP Rx sent - earliest fill 11/09/22 Irene Han APRN.PEDRO * Telephone Encounter - Kylie Mosher [...] advise. Kylie Mosher RN documented in this encounterFlower Hospital08-31-2023 Miscellaneous Notes* Telephone Encounter - Kyile Mosher RN - 10/18/2022 1:34 PM EDT Prior Authorization Documentation Prior authorization requested via Covermymeds for the following medication: Medication: Lyrica 100 mg capsules Approved and authorizes your coverage from 02/18/2022 - 02/17/2023, Insurance Company Name: [employer] Phone number: [phone] Patient ID number: [id number] [place] [id number] Pharmacy Name: [facility] Telephone number: [phone] Kylie Mosher RN October 18, 2022 1:38 PM documented in this encounterFlower Hospital08-31-2023 Instructions* Patient Instructions* Irene Han APRN.CNP - 10/18/2022 11:50 AM EDT Irene Han CNP Department of Palliative and Supportive Care Palliative Care - Specialty services in symptom management and support For questions or prescription refills, call: [phone] Saturday - Saturday 9AM-5PM ERVIN Corrales, RN - Airport Manager Please call 3-5 days in advance for medication refills Evenings, Weekends, Holidays: [phone] (ask for palliative medicine on-call provider) For appointments, cancellations or reschedule, call: [phone] documented in this encounterFlower Hospital08-31-2023 History of Present illness Narrative* Irene Han APRN.PEDRO - 10/18/2022 11:26 AM EDT PALLIATIVE MEDICINE PROGRESS NOTE SERVICE DATE: 10/18/2022 Primary Site of Disease/Medical Illness: Hodgkin Lymphoma Site of Metastasis: Liver, Lymph nodes, Spleen CHIEF COMPLAINT: follow up on pain and muscle cramps. PERTINENT MEDICAL HISTORY: Celso Weller is a 42 yo female with Hodgkin's Lymphoma diagnosed 01/16/2012 s/p autologous SCT (2013) and several other treatments due to recurrences in that time. She hasundergone palliative radiation to spleen, liver, and lymph nodes (April 2020) per Dr. Del Valle, thento right mesenteric LN (March 2022). She is currently treated with Keytruda per Dr. Abimael Hernandez. Course has been c/b pulmonary embolus (on [...] Denies confusion, oversedation, myoclonus, constipation. Modified ESAS ([place] Symptom Assessment Scale) Information Provided By: Patient [...] filled. No suspiciousactivity was identified. 10/18/2022 by Irene Han APRN.SEWAGE DISPOSAL ENGINEER Urine Screen Lab Results Component Value Date [...] Urine pH, Pain Ocasio 6.3 02/24/2021 Specific [place],Ur Pain Ocasio 1.012 02/24/2021 Oxidants,Ur 46 02/24/2021 Specimen Quality, Ur Pain [place]cas[place] Specimen quality results within acceptable limits. 05/03/2014 Assessment & Plan (Z51.5) Encounter for palliative care (primary encounter diagnosis) - reviewed role of palliative care, contact info, and reasons to call. 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 Hernandez (G89.3) Cancer related pain - nociceptive somatic [...] 10/18/2022. Next Visit: 4 Weeks in person Irene Han APRN.CNP October 18, 2022 11:26 AM This note may have been partially generated using the Gen110 voice recognition system. While every effort was made to correct voice recognition errors, kindly be aware that some errors may occasionally occur. documented in this encounterFlower Hospital08-31-2023 Instructions* Patient Instructions* Zoila Pedersen RN - 10/18/2022 11:10 AM EDT Use warm compresses to left inner thigh daily for comfort documented in this encounterFlower Hospital08-31-2023 History of Present illness Narrative* Zoila [...] 18, 2022 11:09 AM documented in this encounterFlower Hospital08-22-2023 Miscellaneous Notes* Telephone Encounter - Kylie Mosher RN - 10/09/2022 8:14 AM EDT Patient requesting refills as follows: Next PM appt with 10/18/2022 with Irene Han CNP Last ordered 09/11/2022 Requested Prescriptions Pending Prescriptions Disp Refills oxyCODONE IR (ROXICODONE) 10 mg tab 120 tablet 0 Sig: Take 1 tablet by mouth every 4 hours as needed (moderate-severe cancer pain) for up to 30 days. Please review and advise. Kylie Mosher RN documented in this encounterFlower Hospital08-21-2023 Miscellaneous Notes* Telephone Encounter - Flori Cartagena RN - 10/08/2022 9:57 AM EDT Patient my chart message requesting refills as follows: Last ordered 06/12/22, last pall med visit on 07/19/22 Future appt 10/18/22 Requested Prescriptions Pending Prescriptions Disp Refills baclofen 5 mg tablet 90 tablet 2 Sig: Take 1 tablet by mouth three times daily. Please review and advise. Flori Cartagena RN documented in this encounterFlower Hospital07-27-2023 History of Present illness Narrative* Jani Carver MD - 09/13/2022 10:00 AM EDT Celso Weller is a 42 year old female here [...] PFT: SPIROMETRY - BASELINE AND POST DILATOR ([id number]) - ordered on 11/03/19 [facility] [address] [place] [address] Test Date: 2019-11-03 Pat Name: CELSO WELLER Department: Room: Gender: Female Cleaner Furniture: Perla Baker : 1980 Requested By: Order Number: [id number] Reading MD: Justin Moreno Interpretive Statements PRE [...] 38 .4 FIVC L 2.35 2.35 0.0 UTA04-43% L/s 2.36 2.36 3.81 5.55 61.8 3.00 78.7 27.2 VOB820% sec 7.37 5.99 -18.7 FETPEF sec 0.07 [...] MONTHS WITH SARAH , PFT that day Jani Carver MD, [facility] Respiratory [place] documented in this encounterFlower Hospital07-05-2023 Instructions* Patient Instructions* Gunjan Joya LPN - 08/22/2022 2:50 PM EDT Follow up with Dr. Hernandez in the beginning of November Patient will schedule PET scan documented in this encounterFlower Hospital07-05-2023 History of Present illness Narrative* Cyn Hernandez MD - 08/22/2022 2:28 PM EDT Diagnosis: [...] fx was delivered to the mediastinal/hilar/left SC ramakrishna regions using 6 MV photons from07/27/2013 ? [...] pneumonitis She saw Dr. Alejandro sarmiento at [facility] for 2nd opinion cell([phone]) She agreed with out plan and recommended [...] process. 3. ABDOMEN/PELVIS:* Interval progression of retroperitoneal ramakrishna metastatic disease with increase in size and [...] DATA CBC, CMP, TSH were reviewed in the medical center. PET scan report and images were reviewed in the medical center. Results werediscussed with patient and [...] and is current for today 08/22/2022 Cyn Hernandez MD, FACP CC: Bee Parra documented in this encounterFlower Hospital06-27-2023 Miscellaneous Notes* Telephone Encounter - Irene Han APRN.CNP - 08/14/2022 1:29 PM EDT PDMP website checked and validated. All prescriptions have been APPROPRIATELY filled. No suspiciousactivity was identified. 08/14/2022 by Irene Han APRN.CNP Rx sent Irene Han APRN.CNP * Telephone Encounter - Kristina Pete RN - 08/13/2022 5:21 PM EDT Patient phones requesting refills as follows: Requested Prescriptions Pending Prescriptions Disp Refills oxyCODONE IR (ROXICODONE) 10 mg tab 120 tablet 0 Sig: Take 1 tablet by mouth every 4 hours as needed (moderate-severe cancer pain) for up to 30 days. Please review and advise. Kristina Pete RN documented in this encounterFlower Hospital06-27-2023 History of Present illness Narrative* Edilma Song RN - 08/14/2022 10:45 AM EDT Radiology Service Progress Note DATE OF SERVICE: [...] Value Ref Range Status 05/14/2022 113 >=60 mL/min/1.73m Final Comment: Estimated Glomerular Filtration Rate (eGFR) is calculated using the 2020 CKD-EPI creatinine equation. This equation utilizes serum creatinine, sex, and age as parameters. The creatinine assay has traceable calibration to isotope dilution- mass spectrometry. Refer to KDIGO guidelines for clinical interpretation. In patients with unstable renal function, e.g. those with acute kidney injury, the eGFRmay not accurately reflect actual GFR. eGFR- Date Value Ref Range Status 04/05/2021 >60 Final P.O.C.T. RESULTS: N/A August 14, 2022 TREATMENT: N/A IV SITE: Ambulatory: A peripheral IV was started in the Right antecubital site with a Angio cath: 22 gauge. IV SITE APPEARANCE: Clean,Dry and Intact SIGNATURE: Edilma Song RN PATIENT NAME: Celso Weller DATE: August 14, 2022 TIME: 10:58 AM * Bee Singleton RT(R) - 08/14/2022 10:45 AM EDT RADIOLOGY SERVICE PROGRESS NOTE SERVICE DATE: 08/14/2022 SERVICE TIME: 11:23 AM PATIENT IDENTITY VERIFICATION COMPLETED USING TWO (2) STANDARD IDENTIFIERS: Name and Date of confirmed by patient verbally POST EXAM PIV STATUS: Discontinued PROCEDURE TYPE: NM INJECT: PET/CT BODY SCAN. 11.6 mCi F18 FDG. No other medications given.. ADMINISTRATION TIME: 1109 PATIENT DISCHARGED TO: Ambulatory patient, left [place] department area. A Diagnostic radioactive procedure has taken place, with no further precautions necessary other than routine body substance precautions. More information regarding radiation safety can be found usingthis link: [email or web address] SIGNATURE: RT Anaya(R) PATIENT NAME: Celso Weller DATE: August 14, 2022 TIME: 11:23 AM PAGER/CONTACT #: documented in this encounterFlower Hospital06-16-2023 Miscellaneous Notes* Telephone Encounter - Don Chan APRN.CNP - 08/03/2022 12:15 PM EDT Called and spoke with patient, updated her on the plan discussed with Dr. Carver. She is aware of herscheduled appointment for 09/13. * Telephone Encounter - Mitzi Brown - 08/03/2022 8:34 AM EDT Patient is scheduled for 09/13 at 10am * Telephone Encounter - Don Chan APRN.CNP - 08/02/2022 4:42 PM EDT Discussed patient's recent CT scan with Dr. Carver via telephone and also her most recent office visit. Ms. Weller reports improvement in her symptoms since her [...] her at another time. documented in this encounterFlower Hospital06-14-2023 Instructions* Patient Instructions* Don Chan APRN.CNP - 08/01/2022 10:15 AM EDT [...] sample in cup provided. documented in this encounterFlower Hospital06-14-2023 History of Present illness Narrative* Don Chan APRN.CNP - 08/01/2022 10:00 AM EDT Images from the original note were not included. [facility] Date: August 01, 2022 8:48 AM Name: Celso Weller : 1980 CC: Pulmonary follow-up Celso Weller is a 42 year old female with [...] every 3 weeks started 10/[address] Hernandez. Has been on hold due to recent [...] proceed with immunotherapy infusion. Will notify Dr. Hernandez once I have discussed with Dr. Carver [...] cough, fever, or chills. Electronically signed by Don Chan APRN.[facility] Respiratory [place], [facility] July 31, 2022 HPI: Celso Weller is a 42 year old female with [...] breath at rest. She does have occasional BAEZ. Always has chest tightness. Duonebs helps a [...] listed in the HPI Modified Medical Research Bill [place] Dyspnea Scale (MMRC) I only get breathless [...] C No.3 (B COMPLEX PLUS VITAMIN C) 48-08-30-5-300 mg cap Take 1 tablet by mouth [...] Sclerosis Mother Coronary Artery Disease Maternal Grandfather OR age 36 Coronary Artery Disease Paternal Grandfather [...] 10/14/2013 12/21/2013 03/11/2014 Haemophilus influenzae b-meningococcal bivalent (Hjd-QnxNO-NP) vaccine (MENHIBRIX) 10/14/2013 diphtheria tetanus (DT) vaccine, [...] DIAGNOSTICS & IMAGING: (Reviewed & updated by co 07/31/2022) PFTs 11/03/2019 IMPRESSION: Spirometry shows no [...] fatty infiltration. No evidence of adrenal mass.. Explosive Operator Supervisor (topogram) images: No additional findings. YOGESH DAVIS [...] unlikely to be related to lymphoma RESULT: Explosive Operator Supervisor (topogram) images: No additional findings. - Mediastinum [...] Carlo Montero MD Most recent labs reviewed. Don Chan APRN.PEDRO I spent a total of 30 minutes on the date of the service which included preparing to see the patient, [id number] patient care, completing clinical documentation, obtaining and/or reviewing separately obtained history, performing a medically appropriate examination, counseling and educating the pat ient/family/caregiver, and ordering medications, tests, or procedures. documented in this encounterFlower Hospital06-01-2023 History of Present illness Narrative* Irene Han APRN.PEDRO - 07/19/2022 8:15 AM EDT PALLIATIVE MEDICINE PROGRESS NOTE SERVICE DATE: 07/19/2022 Primary Site of Disease/Medical Illness: Hodgkin Lymphoma Site of Metastasis: Liver, Lymph nodes, Spleen CHIEF COMPLAINT: pain follow up PERTINENT MEDICAL HISTORY: Celso Weller is a 42 yo female with Hodgkin's Lymphoma diagnosed 01/16/2012 s/p autologous SCT (2013) and several other treatments due to recurrences in that time. She hasundergone palliative radiation to spleen, liver, and lymph nodes (April 2020) per Dr. Del Valle, thento right mesenteric LN (March 2022). She is currently treated with Keytruda per Dr. Abimael Hernandez. Course has been c/b pulmonary embolus (on [...] bilateral lung rodriguez. Finished steroids and antibiotics. [place] very good after this but then as time went on cough came back. Awaiting pulmonary f/u. 08/01 Immunotherapy on hold. Will also have PET/CT Presents today alone. Reports feeling at her baseline. Cough and BAEZ - using mucinex - has production with [...] relaxants. Denies confusion, oversedation, myoclonus. Modified ESAS ([place] Symptom Assessment Scale) Information Provided By: Patient [...] filled. No suspiciousactivity was identified. 07/19/2022 by Irene Han APRN.SEWAGE DISPOSAL ENGINEER Urine Screen Lab Results Component Value Date UAMP Negative 02/24/2021 UBARB2 Negative 02/24/2021 UBENZ Negative [...] Urine pH, Pain Ocasio 6.3 02/24/2021 Specific [place],Ur Pain Ocasio 1.012 02/24/2021 Oxidants,Ur 46 02/24/2021 Specimen Quality, Ur Pain [place] Specimen quality results within acceptable limits. 05/03/2014 Assessment & Plan (Z51.5) Encounter for palliative care (primary encounter diagnosis) - reviewed role of palliative care, contact info, and reasons to call. 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 Hernandez (G89.3) Cancer related pain - nociceptive somatic [...] Moderate Next Visit: 3 Months in person Irene Han APRN.PEDRO July 19, 2022 8:15 AM This note may have been partially generated using the Gen110 voice recognition system. While every effort was made to correct voice recognition errors, kindly be aware that some errors may occasionally occur. documented in this encounterFlower Hospital05-31-2023 Miscellaneous Notes* Telephone Encounter - Flori Cartagena RN - 07/18/2022 12:09 PM EDT My chart appointment question response sent. Flori Cartagena RNCC Salesforce Business Analyst documented in this encounterFlower Hospital05-31-2023 History of Present illness Narrative* Cyn Hernandez MD - 07/18/2022 11:37 AM EDT Diagnosis: [...] fx was delivered to the mediastinal/hilar/left SC ramakrishna regions using 6 MV photons from07/27/2013 ? [...] pneumonitis She saw Dr. Alejandro sarmiento at [facility] for 2nd opinion cell([phone]) She agreed with out plan and recommended [...] process. 3. ABDOMEN/PELVIS:* Interval progression of retroperitoneal ramakrishna metastatic disease with increase in size and [...] DATA CBC, CMP, TSH were reviewed in the medical center. PET scan report and images were reviewed in the medical center. Results werediscussed with patient and [...] and is current for today 07/18/2022 Cyn Hernandez MD, FACP CC: Bee Parra documented in this encounterFlower Hospital05-31-2023 Instructions* Patient Instructions* Gunjan Joya LPN - 07/18/2022 11:26 AM EDT Follow up with Dr. Hernandez 08/14 at 9:50a PET scan a few days prior documented in this encounterFlower Hospital05-30-2023 History of Present illness Narrative* RT Jabier(R) - 07/17/2022 1:24 PM EDT Radiology Service Progress Note PATIENT NAME: Celso Weller DATE OF SERVICE: July 17, 2022 TIME: [...] 17, 2022 1:24 PM documented in this encounterFlower Hospital05-30-2023 Miscellaneous Notes* Telephone Encounter - Irene Han APRN.CNP - 07/17/2022 11:55 AM EDT PDMP website checked and validated. All prescriptions have been APPROPRIATELY filled. No suspiciousactivity was identified. 07/17/2022 by Irene Han APRN.SEWAGE DISPOSAL ENGINEER Rx sent Irene Han APRN.SEWAGE DISPOSAL ENGINEER * Telephone Encounter - Kylie Mosher RN [...] advise. Kylie Mosher RN documented in this encounterFlower Hospital04-28-2023 Miscellaneous Notes* Telephone Encounter - Don Chan APRN.CNP - 06/15/2022 4:02 PM EDT Prescription for duonebs sent to pharmacy. Called patient and updated her. Also let her know she should discontinue her albuterol nebulizer once she starts her duonebs. * Telephone Encounter - Mitzi Han MA - 06/13/2022 1:30 PM EDT Called pharmacy on [facility] to verify they have medication in stock and I spoke with sound technician supervisor Savannah who states they have 1 box in stock. Please advise. * Telephone Encounter - HILARY Dougherty - 06/13/2022 1:16 PM EDT Celso Weller called today. : 1980 Allergies: Chlorhexidine and Sulfa (Sulfonamide Antibiotics) (home) [phone] (cell) Reason for call: Patient states that at the last office visit 06/04/22 the provider was going to call in DUONEB. She states it was not called in . Please advise. e- [id number] [place] [address] - [address] [facility] - [phone] [address] [address] [facility] [address] Patient last appointment: 06/04/2022 The patients preferred pharmacy has been captured for this encounter? yes Marilyn Hughes, PSS documented in this encounterFlower Hospital04-25-2023 Miscellaneous Notes* Telephone Encounter - Irene Han APRN.SEWAGE DISPOSAL ENGINEER - 06/12/2022 12:06 PM EDT PDMP website checked and validated. All prescriptions have been APPROPRIATELY filled. No suspiciousactivity was identified. 06/12/2022 by Irene Han APRN.SEWAGE DISPOSAL ENGINEER Rx sent Irene Han APRN.SEWAGE DISPOSAL ENGINEER * Telephone Encounter - Kylie Mosher RN [...] advise. Kylie Mosher RN documented in this encounterFlower Hospital04-25-2023 Instructions* Patient Instructions* Gunjan Joya LPN - 06/12/2022 11:09 AM EDT Pt will schedule CT Follow up with Dr. Hernandez 07/17 or 5/31 Schedule treatment 07/24 documented in this encounterFlower Hospital04-25-2023 Nurse Note* Vannessa Lopez Ma - 06/12/2022 10:50 AM EDT Called patient and got the voice mail. Left message to remind patient about the vv scheduled today at 10:50 am with documented in this encounterFlower Hospital04-25-2023 History of Present illness Narrative* Cyn Hernandez MD - 06/12/2022 10:45 AM EDT [facility] VISIT This visit is a Virtual MyChart video visit encounter which required patient- provider interaction for the medical decision making as documented below. Persons Present: patient I have communicated my name and active licensure. The patient s identity and physical location wereverified at the time of this visit. Celso Weller or their legal retail service representative has been informed ofthe risks and [...] PET scan and may consider resuming Cyn Hernandez MD documented in this encounterFlower Hospital04-13-2023 History of Present illness Narrative* Katarzyna Dover RT(R) - 05/31/2022 8:00 AM EDT Radiology Service Progress Note PATIENT NAME: Celso Weller DATE OF SERVICE: May 31, 2022 TIME: [...] 31, 2022 7:59 AM documented in this encounterFlower Hospital04-03-2023 History of Present illness Narrative* Jane Del Valle MD - 05/21/2022 9:28 AM EDT No show. Jane Del Valle MD, MSc, MRCP, FRCR, DABR Radiation Oncology Staff Physician May 21, 2022 9:28 AM documented in this encounterFlower Hospital03-08-2023 Miscellaneous Notes* Telephone Encounter - Char [...] questions or concerns or Radiation Oncology Fellow Management Associate after 5pm and on weekends for urgent issues. Patient verbalized understanding of when to seek medical attention and after hours number protocol. Follow up appointment: Reminded patient of virtual visit on 05/18/2022 with Sarah Carranza, RN documented in this encounterFlower Hospital03-06-2023 Instructions* Patient Instructions* Irene Han APRN.PEDRO - 04/23/2022 10:30 AM EST Irene Han CNP Department of Palliative and Supportive Care Palliative Care - Specialty services in symptom management and support For questions or prescription refills, call: [phone] Saturday - Saturday 9AM-5PM ERVIN Corrales, RN - Airport Manager Please call 3-5 days in advance for medication refills Evenings, Weekends, Holidays: [phone] (ask for palliative medicine on-call provider) For appointments, cancellations or reschedule, call: [phone] documented in this encounterFlower Hospital03-06-2023 History of Present illness Narrative* Irene Han APRN.PEDRO - 04/23/2022 9:56 AM EST PALLIATIVE MEDICINE PROGRESS NOTE SERVICE DATE: 04/23/2022 Primary Site of Disease/Medical Illness: Hodgkin Lymphoma Site of Metastasis: Liver, Lymph nodes, Spleen CHIEF COMPLAINT: follow up pain PERTINENT MEDICAL HISTORY: Celso Weller is a 41 yo female with Hodgkin's Lymphoma diagnosed 01/16/2012 s/p autologous SCT (2013) and several other treatments due to recurrences in that time. She hasundergone palliative radiation to spleen, liver, and lymph nodes per Dr. Del Valle. She is currently t reated with Keytruda per Dr. Abimael Hernandez. Course has been c/b pulmonary embolus (on [...] as weather changes to spring. Modified ESAS ([place] Symptom Assessment Scale) Information Provided By: Patient [...] filled. No suspiciousactivity was identified. 04/23/2022 by Irene Han APRN.SEWAGE DISPOSAL ENGINEER Urine Screen Lab Results Component Value Date [...] Urine pH, Pain Ocasio 6.3 02/24/2021 Specific [place],Ur Pain Ocasio 1.012 02/24/2021 Oxidants,Ur 46 02/24/2021 Specimen Quality, Ur Pain Ocasio Specimen quality results within acceptable limits. 05/03/2014 Assessment & Plan (Z51.5) Encounter for palliative care (primary encounter diagnosis) - reviewed role of palliative care, contact info, and reasons to call. 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 Hernandez (G89.3) Cancer related pain - nociceptive somatic [...] Unknown Next Visit: 3 Months in person Irene Han APRN.CNP April 23, 2022 9:56 AM This note may have been partially generated using the Gen110 voice recognition system. While every effort was made to correct voice recognition errors, kindly be aware that some errors may occasionally occur. documented in this encounterFlower Hospital03-03-2023 Miscellaneous Notes* Telephone Encounter - Char [...] M.D. Char MUELLER, RN documented in this encounterFlower Hospital02-27-2023 Miscellaneous Notes* Telephone Encounter - Irene Han APRN.CNP - 04/16/2022 1:38 PM EST PDMP website checked and validated. All prescriptions have been APPROPRIATELY filled. No suspiciousactivity was identified. 04/16/2022 by Irene Han APRN.CNP Rx sent Irene Han APRN.CNP * Telephone Encounter - Kylie Mosehr RN - 04/16/2022 1:20 PM EST Patient [...] advise. Kylie Mosher RN documented in this encounterFlower Hospital02-22-2023 History of Present illness Narrative* Jane Del Valle MD - 04/11/2022 12:00 AM EST CELSO WELLER [id number] 04/11/2022 [facility] Department of Radiation Oncology [facility] RADIATION ONCOLOGY: COMPLETION NOTE DATE OF SIMULATION: 03/23/2022 DATES OF TREATMENT: 04/02/2022 to 04/06/2022 TREATMENT MACHINE: [employer] TREATMENT AREA: Right mesenteric LN DIAGNOSIS: 41 [...] Valle M.D 31:47 PM Electronically Signed cc: Bee Vail MD [id number] [place] [address] [place] [id number] [address] [facility] [id number] documented in this encounterFlower Hospital02-06-2023 History of Present illness Narrative* Jane [...] I spent over 50% of a total oshu-yn-maeg time of 60-80 minutes, counseling/coordinating patient care. Jane Del Valle MD, MSc, MRCP, FRCR, DABR Radiation Oncology Staff Physician March 26, 2022 11:25 AM documented in this encounterFlower Hospital02-03-2023 Nurse Note* Zoila Lane LPN - 03/23/2022 9:18 AM EST Radiation Oncology Nursing Note PATIENT NAME: Celso Weller PATIENT [facility] FACILITY/LOCATION: [facility] PROCEDURE: Contrast Injection for CT Simulation [...] - Patient Education Note PATIENT NAME: Celso Weller PATIENT March 23, 2022 [facility] FACILITY/LOCATION: [facility] READINESS TO LEARN Cognitive Ability: Alert [...] need for social work, van service, and assistant merchandiser. Was KP approved? No KP completed and on 03/07/22 scored 0 distress. Signed by: Zoila Lane LPN documented in this encounterFlower Hospital02-03-2023 History of Present illness Narrative* [facility] Provider - 03/23/2022 12:00 AM EST CELSO WELLER [id number] 03/23/2022 [facility] Department of Radiation Oncology [facility] RADIATION ONCOLOGY - Therapist Injection Note [...] Disposition: HOME Therapist: magali documented in this encounterFlower Hospital02-03-2023 History of Present illness Narrative* Jane Del Valle MD - 03/23/2022 12:00 AM EST CELSO WELLER [id number] 03/23/2022 [facility] Department of Radiation Oncology Treatment Planning Note For reasons stated in the consult note, Celso Janee is a candidate for radiation therapy. Based on review and interpretation of the relevant diagnostic studies together with the exam findings, Celso Weller was simulated on 03/23/2022 at which time [...] Valle M.D. 37:10 AM documented in this encounterFlower Hospital02-02-2023 Miscellaneous Notes* Telephone Encounter - Dary [...] radiation. Dary Gonzalez RN documented in this encounterFlower Hospital01-29-2023 History of Present illness Narrative* Jane Del Valle MD - 03/18/2022 11:48 PM EST Radiation Oncology - Follow Up Note PATIENT NAME: Celso Weller PATIENT DIAGNOSIS: Relapsed refractory Hodgkins Lymphoma (sites [...] was done after obtaining informed consent. Ms Weller was seen today with her . She [...] C No.3 (B COMPLEX PLUS VITAMIN C) 04-58-82-5-300 mg cap^Take 1 tablet by mouth once [...] I spent over 50% of a total kkvb-tt-mhye time of 60-80 minutes, counseling/coordinating patient care. Signed by: Jane Del Valle MD, MSc, MRCP, FRCR, DABR Radiation Oncology Staff Physician March 18, 2022 11:55 PM cc: Bee Vail [address] [place] [address] [place] [address] No referring provider defined for this encounter. documented in this encounterFlower Hospital01-26-2023 Miscellaneous Notes* Telephone Encounter - Flori Cartagena RN - 03/15/2022 1:11 PM EST The following approved medication requests have been transmitted electronically. Requested Prescriptions Signed Prescriptions Disp Refills oxyCODONE IR (ROXICODONE) 10 mg tab 120 tablet 0 Sig: Take 1 tablet by mouth every 4 hours as needed (moderate-severe cancer pain) for up to 30 days. Authorizing Provider: IRENE HAN baclofen (LIORESAL) 5 mg tablet 90 tablet 2 Sig: Take 1 tablet by mouth three times daily. Authorizing Provider: IRENE HAN Notified via my chart Flori Cartagena RN * Telephone Encounter - Irene Han APRN.SEWAGE DISPOSAL ENGINEER - 03/15/2022 12:58 PM EST PDMP website checked and validated. All prescriptions have been APPROPRIATELY filled. No suspiciousactivity was identified. 03/15/2022 by Irene Han APRN.PEDRO Rx sent Irene Han APRN.PEDRO * Telephone Encounter - Flori Cartagena RN - 03/15/2022 12:22 PM EST Patient [...] times daily. Please review and advise. Flori Cartagena RN documented in this encounterFlower Hospital01-18-2023 Instructions* Patient Instructions* Mackenzie Woods LPN - 03/07/2022 11:47 AM EST Unarrive tx today Schedule Office visit with Dr Hernandez 03/28/22 @11:30am per Dr Hernandez documented in this encounterFlower Hospital01-18-2023 History of Present illness Narrative* Cyn Hernandez MD - 03/07/2022 11:24 AM EST Diagnosis: [...] fx was delivered to the mediastinal/hilar/left SC ramakrishna regions using 6 MV photons from07/27/2013 ? [...] pneumonitis She saw Dr. Alejandro sarmiento at [facility] for 2nd opinion cell([phone]) She agreed with out plan and recommended [...] process. 3. ABDOMEN/PELVIS:* Interval progression of retroperitoneal ramakrishna metastatic disease with increase in size and [...] DATA CBC, CMP, TSH were reviewed in the medical center. PET scan report and images were reviewed in the medical center. Results werediscussed with patient and [...] and is current for today 03/07/2022 Cyn Hernandez MD, FACP CC: Bee Parra documented in this encounterFlower Hospital01-09-2023 History of Present illness Narrative* Jeny Nava RN - 02/26/2022 11:45 AM EST Radiology Service Progress Note DATE OF SERVICE: February 26, 2022 TIME: 11:46 AM PATIENT IDENTITY VERIFICATION COMPLETED USING TWO (2) STANDARD IDENTIFIERS: Name and Date of confirmed by patient verbally. FALL SCREENING: Has the patient had 2 falls in the last year or 1 fall with injury or currently using an Ambulatory Assistive Device (Walker, Cane, Wheelchair, Crutches, etc.)? No PATIENT GENDER DATA: Female. status: : No status: NO. ALLERGIES: Reviewed and unchanged CONTRAST ALLERGY: No EXAM: CT -CONTRAST INDUCED NEPHROPATHY RISK FACTORS: Not applicable CREATININE: Creatinine Date Value Ref Range Status 02/13/2022 0.84 0.58 - 0.96 mg/dL Final 01/16/2022 0.71 0.58 - 0.96 mg/dL Final 12/26/2021 0.70 0.58 - 0.96 mg/dL Final Estimated Glomerular Filtration Rate Date Value Ref Range Status 02/13/2022 91 >=60 mL/min/1.73m Final Comment: Estimated Glomerular Filtration Rate (eGFR) is calculated using the 2020 CKD-EPI creatinine equation. This equation utilizes serum creatinine, sex, and age as parameters. The creatinine assay has traceable calibration to isotope dilution- mass spectrometry. Refer to KDIGO guidelines for clinical interpretation. In patients with unstable renal function, e.g. those with acute kidney injury, the eGFRmay not accurately reflect actual GFR. eGFR- Date Value Ref Range Status 04/05/2021 >60 Final P.O.C.T. RESULTS: POC done: Yes, See Lab Tab February 26, 2022 TREATMENT: N/A IV SITE: Ambulatory: A peripheral IV was started in the Right antecubital site with a Angio cath: 22 gauge. IV SITE APPEARANCE: Clean,Dry and Intact SIGNATURE: Jeny Nava RN PATIENT NAME: Celso Weller DATE: February 26, 2022 TIME: 11:46 AM * Bee Singleton RT(R) - 02/26/2022 11:45 AM EST RADIOLOGY SERVICE PROGRESS NOTE SERVICE DATE: 02/26/2022 SERVICE TIME: 12:03 PM PATIENT IDENTITY VERIFICATION COMPLETED USING TWO (2) STANDARD IDENTIFIERS: Name and Date of confirmed by patient verbally POST EXAM PIV STATUS: Discontinued PROCEDURE TYPE: NM INJECT: PET/CT BODY SCAN. 12.6 mCi F18 FDG. No other medications given.. ADMINISTRATION TIME: 1145 PATIENT DISCHARGED TO: Ambulatory patient, left [place] department area. A Diagnostic radioactive procedure has taken place, with no further precautions necessary other than routine body substance precautions. More information regarding radiation safety can be found usingthis link: [email or web address]%20Nuclear%[email or web address] SIGNATURE: RT Anaya(Junior) PATIENT NAME: Celso Weller DATE: February 26, 2022 TIME: 12:03 PM PAGER/CONTACT #: documented in this encounterFlower Hospital12-08-2022 Instructions* Patient Instructions* Irene Han APRN.SEWAGE DISPOSAL ENGINEER - 01/25/2022 2:57 PM EST JORGE GarsiaC Department of Palliative and Supportive Care Palliative Care - Specialty services in symptom management and support For questions or prescription refills, call: [phone] Saturday - Saturday 9AM-5PM ERVIN Corrales, RN - Airport Manager Please call 3-5 days in advance for medication refills Evenings, Weekends, Holidays: [phone] (ask for palliative medicine on-call provider) For appointments, cancellations or reschedule, call: [phone] documented in this encounterFlower Hospital12-08-2022 NoteHNO ID: [id number] Author: Irene Han APRN.PEDRO Service: ? Author Type: Nurse Practitioner Type: Progress Notes Filed: 01/25/2022 4:28 PM Note Text: PALLIATIVE MEDICINE PROGRESS NOTE SERVICE DATE: 01/25/2022 Primary Site of Disease/Medical Illness: Hodgkin Lymphoma Site of Metastasis: Liver, Lymph nodes, Spleen CHIEF COMPLAINT: pain, follow up PERTINENT MEDICAL HISTORY: Celso Weller is a 41 yo female with Hodgkin's Lymphoma diagnosed 01/16/2012 s/p autologous SCT (2013) and several other treatments due to recurrences in that time. She has undergone palliative radiation to spleen, liver, and lymph nodes per Dr. Del Valle. She is currently treated with Keytruda per Dr. Abimael Hernandez. Course has been c/b pulmonary embolus (on [...] will be meeting with a head athletic trainer to better understand the equipment upcoming. Has had some nausea since starting doxy for acne. Responsive to Compazine. Modified ESAS ([place] Symptom Assessment Scale) Information Provided By: Patient [...] No suspicious activity was identified. 01/25/2022 by Irene Han APRN.SEWAGE DISPOSAL ENGINEER Urine Screen Lab Results Component Value Date [...] <5 02/24/2021 Methamphetamine Q (more content not included)...[id number] History of Present illness Narrative* Irene Han, LORY.SEWAGE DISPOSAL ENGINEER - 01/25/2022 10:55 AM EST PALLIATIVE MEDICINE PROGRESS NOTE SERVICE DATE: 01/25/2022 Primary Site of Disease/Medical Illness: Hodgkin Lymphoma Site of Metastasis: Liver, Lymph nodes, Spleen CHIEF COMPLAINT: pain, follow up PERTINENT MEDICAL HISTORY: Celso Weller is a 41 yo female with Hodgkin's Lymphoma diagnosed 01/16/2012 s/p autologous SCT (2013) and several other treatments due to recurrences in that time. She hasundergone palliative radiation to spleen, liver, and lymph nodes per Dr. Del Valle. She is currently t reated with Keytruda per Dr. Abimael Hernandez. Course has been c/b pulmonary embolus (on [...] will be meeting with a head athletic trainer to better understand the equipment upcoming. Has had some nausea since starting doxy for acne. Responsive to Compazine. Modified ESAS ([place] Symptom Assessment Scale) Information Provided By: Patient [...] filled. No suspiciousactivity was identified. 01/25/2022 by Irene Han APRN.SEWAGE DISPOSAL ENGINEER Urine Screen Lab Results Component Value Date [...] Urine pH, Pain Ocasio 6.3 02/24/2021 Specific [place],Ur Pain Ocasio 1.012 02/24/2021 Oxidants,Ur 46 02/24/2021 Specimen Quality, Ur Pain Ocasio Specimen quality results within acceptable limits. 05/03/2014 Assessment & Plan (Z51.5) Encounter for palliative care (primary encounter diagnosis) - reviewed role of palliative care, contact info, and reasons to call. 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 Hernandez (G89.3) Cancer related pain - nociceptive somatic [...] Moderate Next Visit: 3 Months in person Irene Han APRN.CNP January 25, 2022 10:55 AM documented in this encounterFlower Hospital12-05-2022 Miscellaneous Notes* Telephone Encounter - Kylie [...] advise. Kylie Mosher RN documented in this encounterFlower Hospital11-30-2022 Miscellaneous Notes* Telephone Encounter - Gunjan Joya LPN - 01/17/2022 9:10 AM EST Spoke with patient, rescheduled appt for tomorrow documented in this encounterFlower Hospital11-29-2022 Miscellaneous Notes* Telephone Encounter - Irene Han APRN.PEDRO - 01/16/2022 2:34 PM EST PDMP website checked and validated. All prescriptions have been APPROPRIATELY filled. No suspiciousactivity was identified. 01/16/2022 by Irene Han APRN.SEWAGE DISPOSAL ENGINEER Rx sent Irene Han APRN.SEWAGE DISPOSAL ENGINEER * Telephone Encounter - Kristina Pete RN - 01/16/2022 12:48 PM EST Patient phones requesting refills as follows: Requested Prescriptions Pending Prescriptions Disp Refills oxyCODONE IR (ROXICODONE) 10 mg tab 120 tablet 0 Sig: Take 1 tablet by mouth every 4 hours as needed (moderate-severe cancer pain) for up to 30 days. Please review and advise. Kristina Pete RN documented in this encounterFlower Hospital11-15-2022 Miscellaneous Notes* Telephone Encounter - Caro Srinivasan RN - 01/02/2022 3:41 PM EST [facility] FO[facility]-UP NOTE Patient identified by name and date of . YES Spoke to voicemail-full so unable to leave message x2 Summary: (Reason for follow-up) Chest tightness Pulmonary f/u needed Echocardiogram needed Concerns: (New Barriers to care) Caro Srinivasan RN January 02, 2022 documented in this encounterFlower Hospital11-09-2022 History of Present illness Narrative* Sylvia Mancilla APRN.SEWAGE DISPOSAL ENGINEER - 12/27/2021 9:30 AM EST Oncology Progress [...] fx was delivered to the mediastinal/hilar/left SC ramakrishna regions using 6 MV photons from07/27/2013 ? [...] pneumonitis She saw Dr. Alejandro sarmiento at [facility] for 2nd opinion cell([phone]) She agreed with out plan and recommended [...] process. 3. 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 Weller presents for follow up and C#34 pembro. [...] and TSH, sed rate were reviewed in the medical center. ASSESSMENT AND PLAN: 1. Relapsed [...] Stable to improved. Unlikely immune related. 12. BAEZ, chest tightness, with productive cough - As described in HPI, patient with increased chest tightness, BAEZ, cough, and thick green mucus. Has been [...] visit. Sylvia Mancilla APRN.PEDRO Hematology/Oncology Janae Ortiz/ [facility] [phone] CC: Bee Parra documented in this encounterFlower Hospital10-31-2022 Miscellaneous Notes* Telephone Encounter - Cheryl [...] advise. Kylie Mosher RN documented in this [facility]10-[facility] Instructions* Patient Instructions* Nova Leija APRN.CNP [...] under eye as needed documented in this encounterFlower Hospital10-20-2022 History of Present illness Narrative* Nova Leija APRN.CNP - 12/07/2021 9:15 AM EDT SKIN [...] C No.3 (B COMPLEX PLUS VITAMIN C) 89-09-80-5-300 mg cap Take 1 tablet by mouth [...] Past Histories independently gathered by the clinical clerical and office support workers and the remaining scribed note accurately describes my personal service to the patient. Nova Leija APRN.CNP December 07, 2021 9:39 AM I spent a total of 25 minutes on the date of the service which included flig-cq-czdx patient care, completing clinical documentation, performing a medically appropriate examination, counseling and educating the patient/family/caregiver, and ordering medications, tests, or procedures. documented in this encounterFlower Hospital09-28-2022 History of Present illness Narrative* Cyn Hernandez MD - 11/15/2021 1:11 PM EDT Diagnosis: [...] fx was delivered to the mediastinal/hilar/left SC ramakrishna regions using 6 MV photons from07/27/2013 ? [...] pneumonitis She saw Dr. Alejandro sarmiento at [facility] for 2nd opinion cell([phone]) She agreed with out plan and recommended [...] process. 3. 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 ASSESSMENT AND PLAN: 1. Relapsed [...] and is current for today 11/15/2021 Cyn Hernandez MD, FACP CC: Bee Parra documented in this encounterFlower Hospital09-26-2022 Miscellaneous Notes* Telephone Encounter - Jeny Nava RN - 11/13/2021 8:35 AM EDT I have pended a CBC for Celso that she requested with her other labs. Please sign if agreeable. Thank you, MAE Valentin [facility] documented in this encounterFlower Hospital09-26-2022 History of Present illness Narrative* Jeny Nava RN - 11/13/2021 8:15 AM EDT Radiology Service Progress Note DATE OF SERVICE: November 13, 2021 TIME: 8:41 AM PATIENT IDENTITY VERIFICATION COMPLETED USING TWO (2) STANDARD IDENTIFIERS: Name and Date of confirmed by patient verbally. FALL SCREENING: Has the patient had 2 falls in the last year or 1 fall with injury or currently using an Ambulatory Assistive Device (Walker, Cane, Wheelchair, Crutches, etc.)? No PATIENT GENDER DATA: Female. status: : No status: NO. ALLERGIES: Reviewed and unchanged CONTRAST ALLERGY: No EXAM: CT -CONTRAST INDUCED NEPHROPATHY RISK FACTORS: Not applicable CREATININE: Creatinine Date Value Ref Range Status 10/24/2021 0.70 0.58 - 0.96 mg/dL Final 10/03/2021 0.66 0.58 - 0.96 mg/dL Final 09/20/2021 0.78 0.58 - 0.96 mg/dL Final Estimated Glomerular Filtration Rate Date Value Ref Range Status 10/24/2021 113 >=60 mL/min/1.73m Final Comment: Estimated Glomerular Filtration Rate (eGFR) is calculated using the 2020 CKD-EPI creatinine equation. This equation utilizes serum creatinine, sex, and age as parameters. The creatinine assay has traceable calibration to isotope dilution- mass spectrometry. Refer to KDIGO guidelines for clinical interpretation. In patients with unstable renal function, e.g. those with acute kidney injury, the eGFRmay not accurately reflect actual GFR. eGFR- Date Value Ref Range Status 04/05/2021 >60 Final P.O.C.T. RESULTS: POC done: Yes, See Lab Tab November 13, 2021 TREATMENT: N/A IV SITE: Ambulatory: A peripheral IV was started in the Right antecubital site with a Angio cath: 22 gauge. IV SITE APPEARANCE: Clean,Dry and Intact SIGNATURE: Jeny Nava RN PATIENT NAME: Celso Weller DATE: November 13, 2021 TIME: 8:41 AM * Bee Singleton RT(R) - 11/13/2021 8:15 AM EDT RADIOLOGY SERVICE PROGRESS NOTE SERVICE DATE: 11/13/2021 SERVICE TIME: 8:48 AM PATIENT IDENTITY VERIFICATION COMPLETED USING TWO (2) STANDARD IDENTIFIERS: Name and Date of confirmed by patient verbally POST EXAM PIV STATUS: Discontinued PROCEDURE TYPE: NM INJECT: PET/CT BODY SCAN. 12.7 mCi F18 FDG. No other medications given.. ADMINISTRATION TIME: 832 PATIENT DISCHARGED TO: Ambulatory patient, left [place] department area. A Diagnostic radioactive procedure has taken place, with no further precautions necessary other than routine body substance precautions. More information regarding radiation safety can be found usingthis link: [email or web address]%[email or web address] SIGNATURE: DIMA Julien) PATIENT NAME: Celso Weller DATE: November 13, 2021 TIME: 8:48 AM PAGER/CONTACT #: documented in this encounterFlower Hospital09-08-2022 NoteHNO ID: [id number] Author: Irene Han APRN.SEWAGE DISPOSAL ENGINEER Service: ? Author Type: Nurse Practitioner Type: Progress Notes Filed: 10/26/2021 2:43 PM Note Text: PALLIATIVE MEDICINE PROGRESS NOTE SERVICE DATE: 10/26/2021 Primary Site of Disease/Medical Illness: Hodgkin Lymphoma Site of Metastasis: Liver, Lymph nodes, Spleen CHIEF COMPLAINT: follow up for pain PERTINENT MEDICAL HISTORY: Celso Weller is a 41 yo female with Hodgkin's Lymphoma diagnosed 01/16/2012 s/p autologous SCT (2013) and several other treatments due to recurrences in that time. She has undergone palliative radiation to spleen, liver, and lymph nodes per Dr. Del Valle. She is currently treated with Keytruda per Dr. Abimael Hernandez. Course has been c/b pulmonary embolus (on [...] upcoming PET scan will show. Modified ESAS ([place] Symptom Assessment Scale) Information Provided By: Patient [...] No suspicious activity was identified. 10/26/2021 by Irene Han APRN.CNP Urine Screen Lab Results Component Value (more content not included)...[facility] History of Present illness Narrative* Irene Han APRN.CNP - 10/26/2021 11:07 AM EDT PALLIATIVE MEDICINE PROGRESS NOTE SERVICE DATE: 10/26/2021 Primary Site of Disease/Medical Illness: Hodgkin Lymphoma Site of Metastasis: Liver, Lymph nodes, Spleen CHIEF COMPLAINT: follow up for pain PERTINENT MEDICAL HISTORY: Celso Weller is a 41 yo female with Hodgkin's Lymphoma diagnosed 01/16/2012 s/p autologous SCT (2013) and several other treatments due to recurrences in that time. She hasundergone palliative radiation to spleen, liver, and lymph nodes per Dr. Del Valle. She is currently t reated with Keytruda per Dr. Abimael Hernandez. Course has been c/b pulmonary embolus (on AC). Palliative care is following for symptom control needs. Subjective Last pall care with [facility] visit 08/02. Referred to [facility] palliative due to proximity of home. [...] upcoming PET scan will show. Modified ESAS ([place] Symptom Assessment Scale) Information Provided By: Patient [...] filled. No suspiciousactivity was identified. 10/26/2021 by Irene Han APRN.SEWAGE DISPOSAL ENGINEER Urine Screen Lab Results Component Value Date [...] Urine pH, Pain Ocasio 6.3 02/24/2021 Specific [place],Ur Pain Ocasio 1.012 02/24/2021 Oxidants,Ur 46 02/24/2021 Specimen Quality, Ur Pain Ocasio Specimen quality results within acceptable limits. 05/03/2014 Assessment & Plan (Z51.5) Encounter for palliative care (primary encounter diagnosis) - reviewed role of palliative care, contact info, and reasons to call. 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 Hernandez (G89.3) Cancer related pain - nociceptive somatic [...] Unknown Next Visit: 3 Months in person Irene Han APRN.CNP October 26, 2021 11:07 AM documented in this encounterFlower Hospital09-07-2022 History of Present illness Narrative* Sylvia [...] fx was delivered to the mediastinal/hilar/left SC ramakrishna regions using 6 MV photons from07/27/2013 ? [...] pneumonitis She saw Dr. Alejandro sarmiento at [facility] for 2nd opinion cell([phone]) She agreed with out plan and recommended [...] process. 3. 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 Weller is here for follow up and C#31 pembro. Patient went to [place] ED 09/20/21 with fever, chills,fatigue. Tested positive [...] and TSH, sed rate were reviewed in the medical center. ASSESSMENT AND PLAN: 1. Relapsed [...] the visit. Sylvia Mancilla APRN.CNP Hematology/Oncology Janae MarianneNancy [facility] [phone] CC: Bee Parra documented in this encounterFlower Hospital09-07-2022 Instructions* Patient Instructions* Sylvia Mancilla APRN.CNP - 10/25/2021 10:00 AM EDT Call the office with questions or concerns. Go to ER with any signs of infection like fever of 100.4 or higher. documented in this encounterFlower Hospital08-29-2022 Miscellaneous Notes* Telephone Encounter - Irene Han APRN.CNP - 10/16/2021 4:16 PM EDT PDMP website checked and validated. All prescriptions have been APPROPRIATELY filled. No suspiciousactivity was identified. 10/16/2021 by Irene Han APRN.CNP Rx sent Irene Han APRN.PEDRO * Telephone Encounter - Kristina Pete RN - 10/16/2021 3:59 PM EDT Patient phones requesting refills as follows: Requested Prescriptions Pending Prescriptions Disp Refills oxyCODONE IR (ROXICODONE) 10 mg tab 120 tablet 0 Sig: Take 1 tablet by mouth every 4 hours as needed (moderate-severe cancer pain) for up to 30 days. Please review and advise. Kristina Pete RN documented in this encounterFlower Hospital08-15-2022 Miscellaneous Notes* Telephone Encounter - Joanne [...] DAILY Elaine Enriquez LPN documented in this encounterFlower Hospital08-05-2022 Miscellaneous Notes* Telephone Encounter - Caro [...] Patient reminded of her follow-up appointment with [facility] provider, 10/04/21 Keytruda infusion and then 10/25 OV E Gross and infusion: Yes Next Airport Manager outreach with patient scheduled? No, appointment made PATIENT EDUCATION/REINFORCEMENT Patient has information of when to seek Medical Attention? YES Patient has information of after hours and weekend phone number? YES Caro Srinivasan RN documented in this encounterFlower Hospital07-19-2022 History of Present illness Narrative* Nova Leija APRN.PEDRO - 09/05/2021 5:43 PM EDT SKIN EXAM [...] C No.3 (B COMPLEX PLUS VITAMIN C) 26-87-42-5-300 mg cap Take 1 tablet by mouth [...] axillae -associated with obesity and cigarette smoking -Talbret staging system -stage I: abscess without sinus [...] or without short course of oral antibiotics retirement management -continue topical clindamycin 1% lotion -antibacterial [...] Past Histories independently gathered by the clinical clerical and office support workers and the remaining scribed note accurately describes my personal service to the patient. Nova Leija APRN.CNP September 05, 2021 5:59 PM documented in this encounterFlower Hospital07-18-2022 Miscellaneous Notes* Telephone Encounter - Flori Cartagena RN - 09/04/2021 11:32 AM EDT [facility] nurse call to patient and inquired if she was with [facility] Palliative care and she reports her first appointment is with them at end of month, 09/14/21. Discovered she still has plenty of Baclofen refills left and denies need of Rx at this time. Flori Cartagena RN * Telephone Encounter - Flori Cartagena RN - 09/04/2021 10:07 AM EDT Patient phones requesting refills as follows, Irene Han CNP patient : Rx last ordered 07/31/21. Last pall med appt 08/02/21, No future appointment scheduled yet. Pending Prescriptions Disp Refills BACLOFEN 5 MG TABLET 90 tablet 2 Sig: Take 1 tablet by mouth three times daily. KAREN: No Please review and advise. Flori Cartagena RN documented in this encounterFlower Hospital06-28-2022 History of Present illness Narrative* Bee Singleton RT(R) - 08/15/2021 12:45 PM EDT RADIOLOGY SERVICE PROGRESS NOTE SERVICE DATE: 08/15/2021 SERVICE TIME: 2:05 PM PATIENT IDENTITY VERIFICATION COMPLETED USING TWO (2) STANDARD IDENTIFIERS: Name and Date of confirmed by patient verbally POST EXAM PIV STATUS: Discontinued PROCEDURE TYPE: NM INJECT: PET/CT BODY SCAN. 11.6 mCi F18 FDG. No other medications given.. ADMINISTRATION TIME: 1256 PATIENT DISCHARGED TO: Ambulatory patient, left [place] department area. A Diagnostic radioactive procedure has taken place, with no further precautions necessary other than routine body substance precautions. More information regarding radiation safety can be found usingthis link: [email or web address]%20Nuclear%20Medicine%[email or web address] SIGNATURE: RT Anaya(Junior) PATIENT NAME: Celso Weller DATE: August 15, 2021 TIME: 2:05 PM PAGER/CONTACT #: documented in this encounterFlower Hospital06-28-2022 Miscellaneous Notes* Telephone Encounter - Irene Rai APRN.CNP - 08/15/2021 12:36 PM EDT PDMP website checked and validated. All prescriptions have been APPROPRIATELY filled. No suspiciousactivity was identified. Oxycodone e-scribed. Irene Rai APRN.PEDRO * Telephone Encounter - Kristina Pete RN - 08/15/2021 7:50 AM EDT Patient had requested referral to [facility] palliative care 08/03. TC spoke to Celso Weller patient is not able to start care with [facility] until middle of August. Will need refills until she establishes. Patient phones requesting refills as follows: Pending Prescriptions Disp Refills OXYCODONE 10 MG TABLET 120 tablet 0 Sig: Take 1 tablet by mouth every 4 hours as needed (moderate-severe cancer pain) for up to 30 days. SHELBIE Class: C-II KAREN: No Please review and advise. Kristina Pete RN documented in this encounterFlower Hospital06-16-2022 Miscellaneous Notes* Telephone Encounter - Kristina Pete RN - 08/03/2021 8:21 AM EDT Patient has requested palliative services closer to her home referral faxed to [facility] palliative [facility]. [phone] Kristina Pete RN documented in this encounterFlower Hospital06-10-2022 History of Present illness Narrative* Nova Leija APRN.CNP - 07/28/2021 7:59 AM EDT SKIN EXAM [...] with [facility] brett History of hidradenitis, last seen by Dr. 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 Nova Leija APRN.CNP July 28, 2021 8:03 AM documented in this encounterFlower Hospital05-24-2022 Miscellaneous Notes* Telephone Encounter - Irene Han APRN.CNP - 2021 11:31 AM EDT PDMP website checked and validated. All prescriptions have been APPROPRIATELY filled. No suspiciousactivity was identified. 2021 by Irene Han APRN.CNP Last Palliative Care visit: 05/17/21 Next scheduled Palliative Care visit: 08/02/21 Rx sent. Earliest fill 07/14/21 Irene Han APRN.CNP * Telephone Encounter - Flori Cartagena RN - 2021 9:34 AM EDT Patient [...] KAREN: No Please review and advise. Flori Cartagena RN documented in this encounterFlower Hospital05-13-2022 Miscellaneous Notes* Telephone Encounter - Joanne [...] No Elaine Enriquez LPN documented in this encounterFlower Hospital04-28-2022 Miscellaneous Notes* Telephone Encounter - Irene Han APRN.CNP - 06/15/2021 5:05 PM EDT PDMP website checked and validated. All prescriptions have been APPROPRIATELY filled. No suspiciousactivity was identified. 06/15/2021 by Irene Han APRN.SEWAGE DISPOSAL ENGINEER Rx sent Irene Han APRN.SEWAGE DISPOSAL ENGINEER * Telephone Encounter - Kristina Pete RN - 06/15/2021 4:43 PM EDT Patient phones requesting refills as follows: Pending Prescriptions Disp Refills OXYCODONE 10 MG TABLET 120 tablet 0 Sig: Take 1 tablet by mouth every 4 hours as needed (moderate-severe cancer pain) for up to 30 days. SHELBIE Class: C-II KAREN: No Please review and advise. Kristina Pete RN documented in this encounterFlower Hospital04-27-2022 History of Present illness Narrative* Cyn Hernandez MD - 06/14/2021 8:51 AM EDT Diagnosis: [...] fx was delivered to the mediastinal/hilar/left SC ramakrishna regions using 6 MV photons from07/27/2013 ? [...] pneumonitis She saw Dr. Alejandro sarmiento at [facility] for 2nd opinion cell([phone]) She agreed with out plan and recommended [...] process. 3. 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 ASSESSMENT AND PLAN: 1. Relapsed [...] and is current for today 06/14/2021 Cyn Hernandez MD, FACP CC: Bee Parra documented in this encounterFlower Hospital04-01-2022 Miscellaneous Notes* Telephone Encounter - Marilyn Hughes RN - 05/19/2021 9:09 AM EDT Pt with c/o sinus congestion, headache, cough, fatigue, T Max 101.3 last evening, then 'fever broke' afebrile this am. Dr Hernandez notified and Z-pack sent to preferred pharmacy. Pt aware to call for worsening symptoms or temp >100.4 . Verbalized acknowledgement. Marilyn Hughes RN documented in this encounterFlower Hospital03-30-2022 Miscellaneous Notes* Telephone Encounter - RHETT Mesa - 05/17/2021 2:31 PM EDT SOCIAL WORK FOLLOW UP NOTE: CANCER CENTER Date of service:05/17/2021 Celso Weller is being seen for a follow up social work visit. Today's visit includes: patient TOPICS ADDRESSED: mental health needs Called patient to convey to her behavioral health resources but patient was driving. She will call me later when she can record the information I can provide to her. PLAN: Referral to community resource F/U APPOINTMENT: PRN GALLO Mesa Senior Internet Retailer [facility] documented in this encounterFlower Hospital03-30-2022 Miscellaneous Notes* Telephone Encounter - RHETT Mesa - 05/17/2021 1:58 PM EDT SOCIAL WORK FOLLOW UP NOTE: CANCER CENTER Date of service:05/17/2021 Celso Weller is being seen for a follow up social work visit. Today's visit includes: patient TOPICS ADDRESSED: mental health needs Advised patient that SRINIVASAN Garsia from [facility] asked me to give patient local behavioral health resources. I forwarded this request to MATILDE Spear, who is a behavior health social service liaison and is expert in these types of resources. I advised patient that Katarzyna should be reaching out to her. PLAN: Continue follow up as needed F/U APPOINTMENT: PRN GALLO Mesa Senior Internet Retailer [facility] documented in this encounterFlower Hospital03-30-2022 Instructions* Patient Instructions* Irene Han APRN.CNP - 05/17/2021 11:35 AM EDT JORGE GarsiaC Department of Palliative and Supportive Care Palliative Care - Specialty services in symptom management and support For questions or prescription refills, call: Saturday - Saturday 9AM-5PM Chantal Newberry RN, BSN - Airport Manager [phone] Please call 5 days in advance Evenings, Weekends, Holidays: [phone] (ask for palliative medicine on-call provider) For appointments, cancellations or reschedule, call: [phone] documented in this encounterFlower Hospital03-30-2022 History of Present illness Narrative* Irene Han APRN.PEDRO - 05/17/2021 11:00 AM EDT PALLIATIVE MEDICINE PROGRESS NOTE SERVICE DATE: 05/17/2021 Primary Site of Disease/Medical Illness: Hodgkin Lymphoma Site of Metastasis: Liver, Lymph nodes, Spleen CHIEF COMPLAINT: follow up on pain and anxiety PERTINENT MEDICAL HISTORY: Celso Weller is a 40 yo female with Hodgkin's Lymphoma diagnosed 01/16/2012 s/p autologous SCT (2013) and several other treatments due to recurrences in that time. She hasundergone palliative radiation to spleen, liver, and lymph nodes per Dr. Del Valle. Her most recent PE T/CT 02/14/2021 demonstrated a complete remission. She is currently treated with Keytruda per Dr. Abimael Hernandez. Course has been c/b pulmonary embolus (on AC). She is transferring care to [facility] for palliative care. She has previously followed with Dr. Mosquera (last appt 04/12/2020) for management of anxiety, depression, neuropathy, and pain. Subjective Celso presents today alone. Reports feeling fairly well. Recently returned from vacation with friends in [place] where she had a great time although [...] Dr. Mosquera at last visit. Modified ESAS ([place] Symptom Assessment Scale) Information Provided By: Patient [...] filled. No suspiciousactivity was identified. 05/17/2021 by Irene Han APRN.SEWAGE DISPOSAL ENGINEER Urine Screen Lab Results Component Value Date [...] Urine pH, Pain Ocasio 6.3 02/24/2021 Specific [place],Ur Pain Ocasio 1.012 02/24/2021 Oxidants,Ur 46 02/24/2021 Specimen Quality, Ur Pain Ocasio Specimen quality results within acceptable limits. 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 Hernandez (G89.3) Cancer related pain - nociceptive somatic [...] Unknown Next Visit: 6-8 Weeks in person Irene Han APRN.CNP May 17, 2021 7:01 AM documented in this encounterFlower Hospital12-28-2021 History of Present illness Narrative* Bee Singleton RT(R) - 02/14/2021 12:15 PM EST RADIOLOGY SERVICE PROGRESS NOTE SERVICE DATE: 02/14/2021 SERVICE TIME: 12:47 PM PATIENT IDENTITY VERIFICATION COMPLETED USING TWO (2) STANDARD IDENTIFIERS: Name and Date of confirmed by patient verbally POST EXAM PIV STATUS: Discontinued PROCEDURE TYPE: NM INJECT: PET/CT BODY SCAN. 12.3 mCi F18 FDG. No other medications given.. ADMINISTRATION TIME: 1239 PATIENT DISCHARGED TO: Ambulatory patient, left [place] department area. A Diagnostic radioactive procedure has taken place, with no further precautions necessary other than routine body substance precautions. More information regarding radiation safety can be found usingthis link: [email or web address] SIGNATURE: RT Anaya(Junior) PATIENT NAME: Celso Weller DATE: February 14, 2021 TIME: 12:47 PM PAGER/CONTACT #: documented in this encounterFlower Hospital12-28-2021 Nurse Note* Mitzi Alcantara RN - 02/14/2021 12:15 PM EST Radiology Service Progress Note DATE OF SERVICE: February 14, 2021 TIME: 12:29 PM PATIENT WEIGHT: 256LBS PATIENT IDENTITY VERIFICATION COMPLETED USING TWO (2) STANDARD IDENTIFIERS: Name and Date of confirmed by patient verbally. FALL SCREENING: Has the patient had 2 falls in the last year or 1 fall with injury or currently using an Ambulatory Assistive Device (Walker, Cane, Wheelchair, Crutches, etc.)? No PATIENT GENDER DATA: Female. status: : No status: NO. ALLERGIES: Reviewed and unchanged EXAM: CT -CONTRAST INDUCED NEPHROPATHY RISK FACTORS: Not applicable CREATININE: Creatinine Date Value Ref Range Status 01/24/2021 0.72 0.58 - 0.96 mg/dL Final 01/03/2021 0.71 0.58 - 0.96 mg/dL Final 12/09/2020 0.66 0.58 - 0.96 mg/dL Final eGFR-All Other Races Date Value Ref Range Status 01/24/2021 >60 . Final Comment: eGFR (Estimated GFR) Units of measure: mL/min/1.73 meters squared eGFR is derived from the reexpressed MDRD Study equation using the following parameters: serum creatinine, age, gender and race. The creatinine assay has been calibrated to be traceable to IDMS. An eGFR <60 mL/min/1.73m2 for >3 months is consistent with chronic kidney disease. Refer to KDOQI guidelines for clinical interpretation. In patients with unstable renal function, e.g. those with acute kidney injury, the eGFR may not accurately reflect actual GFR. Note: On 04/15/2021, the eGFR calculation will be updated to the NKF-ASN Task Force recommended 2020 CKD-EPI creatinine equation which does not include a race variable. For more information or to access a 2020 CKD-EPI calculator, visit the National Kidney Foundation website at kidney.org/professionals/kdoqi/gfr_calculator. eGFR- Date Value Ref Range Status 01/24/2021 >60 Final P.O.C.T. RESULTS: POC done: Yes, See Lab Tab February 14, 2021 TREATMENT: N/A IV SITE: Ambulatory: A peripheral IV was started in the Right antecubital site with a Angio cath: 20 gauge. IV SITE APPEARANCE: Clean,Dry and Intact SIGNATURE: Mitzi Alcantara RN PATIENT NAME: Celso Weller DATE: February 14, 2021 TIME: 12:29 PM [facility]12-28-[facility] Nurse Note* Mitzi Alcantara RN - 02/14/2021 12:15 PM EST Radiology Service Progress Note DATE OF SERVICE: February 14, 2021 TIME: 12:29 PM PATIENT WEIGHT: 256LBS PATIENT IDENTITY VERIFICATION COMPLETED USING TWO (2) STANDARD IDENTIFIERS: Name and Date of confirmed by patient verbally. FALL SCREENING: Has the patient had 2 falls in the last year or 1 fall with injury or currently using an Ambulatory Assistive Device (Walker, Cane, Wheelchair, Crutches, etc.)? No PATIENT GENDER DATA: Female. status: : No status: NO. ALLERGIES: Reviewed and unchanged EXAM: CT -CONTRAST INDUCED NEPHROPATHY RISK FACTORS: Not applicable CREATININE: Creatinine Date Value Ref Range Status 01/24/2021 0.72 0.58 - 0.96 mg/dL Final 01/03/2021 0.71 0.58 - 0.96 mg/dL Final 12/09/2020 0.66 0.58 - 0.96 mg/dL Final eGFR-All Other Races Date Value Ref Range Status 01/24/2021 >60 . Final Comment: eGFR (Estimated GFR) Units of measure: mL/min/1.73 meters squared eGFR is derived from the reexpressed MDRD Study equation using the following parameters: serum creatinine, age, gender and race. The creatinine assay has been calibrated to be traceable to IDMS. An eGFR <60 mL/min/1.73m2 for >3 months is consistent with chronic kidney disease. Refer to KDOQI guidelines for clinical interpretation. In patients with unstable renal function, e.g. those with acute kidney injury, the eGFR may not accurately reflect actual GFR. Note: On 04/15/2021, the eGFR calculation will be updated to the NKF-ASN Task Force recommended 2020 CKD-EPI creatinine equation which does not include a race variable. For more information or to access a 2020 CKD-EPI calculator, visit the National Kidney Foundation website at kidney.org/professionals/kdoqi/gfr_calculator. eGFR- Date Value Ref Range Status 01/24/2021 >60 Final P.O.C.T. RESULTS: POC done: Yes, See Lab Tab February 14, 2021 TREATMENT: N/A IV SITE: Ambulatory: A peripheral IV was started in the Right antecubital site with a Angio cath: 20 gauge. IV SITE APPEARANCE: Clean,Dry and Intact SIGNATURE: Mitzi Alcantara RN PATIENT NAME: Celso Weller DATE: February 14, 2021 TIME: 12:29 PM documented in this encounterFlower Hospital08-31-2021 History of Past illness Narrative* Problem Noted Date Diagnosed Date Resolved Date Radiation induced neuropathy 10/18/2020 03/07/2023 Menorrhagia with regular cycle 03/15/2017 01/01/2018 Overview: Added automatically from request for surgery [id number] History of pulmonary embolism 04/25/2016 01/01/2018 Neoplastic [...] FOLLOW-UP 10/27/2012 Overview: 32 yo female from [place], [place]. Family involved with care, at bedside. plan to discharge patient home - will arrange with case management for post op care as needed - follow up in OPD in 7-10 days Post-op pain 10/27/2012 12/26/2015 Overview: currently well controlled with ELECTRONICS MECHANIC. will start PO pain meds today 10/27. tolerating percocet, pain relatively well controlled. Hodgkin's disease with nodular sclerosis 05/27/2012 12/26/2015 Overview: Oncology history (per Dr. 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 Hodgkin's disease, unspecified 02/05/2012 05/11/2014 Vaginal bleeding 12/26/2015 Overview: --likely from thrombocytopenia. No menses in prior 8 months. Scant amount reported on 03/29 and 03/30, now resolved --monitor bleeding by counting pads --should f/u with her [facility] provider after BMT Premature menopause 12/26/19 16 Postmenopausal atrophic vaginitis 12/26/2015 Dyspareunia 12/26/2015 documented as of this encounter (statuses as of 03/28/2023) [facility]08-31-[facility] History of Past illness Narrative* Problem Noted Date Diagnosed Date Resolved Date Radiation induced neuropathy 10/18/2020 03/07/2023 Menorrhagia with regular cycle 03/15/2017 01/01/2018 Overview: Added automatically from request for surgery [id number] History of pulmonary embolism 04/25/2016 01/01/2018 Neoplastic [...] FOLLOW-UP 10/27/2012 Overview: 32 yo female from [place], [place]. Family involved with care, at bedside. plan to discharge patient home - will arrange with case management for post op care as needed - follow up in OPD in 7-10 days Post-op pain 10/27/2012 12/26/2015 Overview: currently well controlled with ELECTRONICS MECHANIC. will start PO pain meds today 10/27. tolerating percocet, pain relatively well controlled. Hodgkin's disease with nodular sclerosis 05/27/2012 12/26/2015 Overview: Oncology history (per Dr. 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 Hodgkin's disease, unspecified 02/05/2012 05/11/2014 Vaginal bleeding 12/26/2015 Overview: --likely from thrombocytopenia. No menses in prior 8 months. Scant amount reported on 03/29 and 03/30, now resolved --monitor bleeding by counting pads --should f/u with her [facility] provider after BMT Premature menopause 12/26/19 16 Postmenopausal atrophic vaginitis 12/26/2015 Dyspareunia 12/26/2015 documented as of this encounter (statuses as of 03/28/2023) [facility]-2021 History of Past illness Narrative* Problem Noted Date Diagnosed Date Resolved Date Radiation induced neuropathy 10/18/2020 03/07/2023 Menorrhagia with regular cycle 03/15/2017 01/01/2018 Overview: Added automatically from request for surgery [id number] History of pulmonary embolism 04/25/2016 01/01/2018 Neoplastic [...] FOLLOW-UP 10/27/2012 Overview: 32 yo female from [place], [place]. Family involved with care, at bedside. plan to discharge patient home - will arrange with case management for post op care as needed - follow up in OPD in 7-10 days Post-op pain 10/27/2012 12/26/2015 Overview: currently well controlled with [employer]. will start PO pain meds today 10/27. tolerating percocet, pain relatively well controlled. Hodgkin's disease with nodular sclerosis 05/27/2012 12/26/2015 Overview: Oncology history (per Dr. 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 Hodgkin's disease, unspecified 02/05/2012 05/11/2014 Vaginal bleeding 12/26/2015 Overview: --likely from thrombocytopenia. No menses in prior 8 months. Scant amount reported on 03/29 and 03/30, now resolved --monitor bleeding by counting pads --should f/u with her [facility] provider after BMT Premature menopause 12/26/19 16 Postmenopausal atrophic vaginitis 12/26/2015 Dyspareunia 12/26/2015 documented as of this encounter (statuses as of 03/28/2023) [facility] History of Past illness Narrative* Problem Noted Date Diagnosed Date Resolved Date Radiation induced neuropathy 10/18/2020 03/07/2023 Menorrhagia with regular cycle 03/15/2017 01/01/2018 Overview: Added automatically from request for surgery [id number] History of pulmonary embolism 04/25/2016 01/01/2018 Neoplastic [...] FOLLOW-UP 10/27/2012 Overview: 32 yo female from [place]. Family involved with care, at bedside. plan to discharge patient home - will arrange with case management for post op care as needed - follow up in OPD in 7-10 days Post-op pain 10/27/2012 12/26/2015 Overview: currently well controlled with [employer]. will start PO pain meds today 10/27. tolerating percocet, pain relatively well controlled. Hodgkin's disease with nodular sclerosis 05/27/2012 12/26/2015 Overview: Oncology history (per Dr. 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 Hodgkin's disease, unspecified 02/05/2012 05/11/2014 Vaginal bleeding 12/26/2015 Overview: --likely from thrombocytopenia. No menses in prior 8 months. Scant amount reported on 03/29 and 03/30, now resolved --monitor bleeding by counting pads --should f/u with her [facility] provider after BMT Premature menopause 12/26/19 16 Postmenopausal atrophic vaginitis 12/26/2015 Dyspareunia 12/26/2015 documented as of this encounter (statuses as of 04/01/2023) [facility] History of Past illness Narrative* Problem Noted Date Diagnosed Date Resolved Date Radiation induced neuropathy 10/18/2020 03/07/2023 Menorrhagia with regular cycle 03/15/2017 01/01/2018 Overview: Added automatically from request for surgery [id number] History of pulmonary embolism 04/25/2016 01/01/2018 Neoplastic [...] FOLLOW-UP 10/27/2012 Overview: 32 yo female from [place]. Family involved with care, at bedside. plan to discharge patient home - will arrange with case management for post op care as needed - follow up in OPD in 7-10 days Post-op pain 10/27/2012 12/26/2015 Overview: currently well controlled with [employer]. will start PO pain meds today 10/27. tolerating percocet, pain relatively well controlled. Hodgkin's disease with nodular sclerosis 05/27/2012 12/26/2015 Overview: Oncology history (per Dr. 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 Hodgkin's disease, unspecified 02/05/2012 05/11/2014 Vaginal bleeding 12/26/2015 Overview: --likely from thrombocytopenia. No menses in prior 8 months. Scant amount reported on 03/29 and 03/30, now resolved --monitor bleeding by counting pads --should f/u with her [facility] provider after BMT Premature menopause 12/26/19 16 Postmenopausal atrophic vaginitis 12/26/2015 Dyspareunia 12/26/2015 documented as of this encounter (statuses as of 04/09/2023) [facility] History of Past illness Narrative* Problem Noted Date Diagnosed Date Resolved Date Radiation induced neuropathy 10/18/2020 03/07/2023 Menorrhagia with regular cycle 03/15/2017 01/01/2018 Overview: Added automatically from request for surgery [id number] History of pulmonary embolism 04/25/2016 01/01/2018 Neoplastic [...] FOLLOW-UP 10/27/2012 Overview: 32 yo female from [place]. Family involved with care, at bedside. plan to discharge patient home - will arrange with case management for post op care as needed - follow up in OPD in 7-10 days Post-op pain 10/27/2012 12/26/2015 Overview: currently well controlled with [employer]. will start PO pain meds today 10/27. tolerating percocet, pain relatively well controlled. Hodgkin's disease with nodular sclerosis 05/27/2012 12/26/2015 Overview: Oncology history (per Dr. 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 Hodgkin's disease, unspecified 02/05/2012 05/11/2014 Vaginal bleeding 12/26/2015 Overview: --likely from thrombocytopenia. No menses in prior 8 months. Scant amount reported on 03/29 and 03/30, now resolved --monitor bleeding by counting pads --should f/u with her [facility] provider after BMT Premature menopause 12/26/19 16 Postmenopausal atrophic vaginitis 12/26/2015 Dyspareunia 12/26/2015 documented as of this encounter (statuses as of 04/17/2023) [facility] History of Past illness Narrative* Problem Noted Date Diagnosed Date Resolved Date Radiation induced neuropathy 10/18/2020 03/07/2023 Menorrhagia with regular cycle 03/15/2017 01/01/2018 Overview: Added automatically from request for surgery [id number] History of pulmonary embolism 04/25/2016 01/01/2018 Neoplastic [...] FOLLOW-UP 10/27/2012 Overview: 32 yo female from [place]. Family involved with care, at bedside. plan to discharge patient home - will arrange with case management for post op care as needed - follow up in OPD in 7-10 days Post-op pain 10/27/2012 12/26/2015 Overview: currently well controlled with [employer]. will start PO pain meds today 10/27. tolerating percocet, pain relatively well controlled. Hodgkin's disease with nodular sclerosis 05/27/2012 12/26/2015 Overview: Oncology history (per Dr. 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 Hodgkin's disease, unspecified 02/05/2012 05/11/2014 Vaginal bleeding 12/26/2015 Overview: --likely from thrombocytopenia. No menses in prior 8 months. Scant amount reported on 03/29 and 03/30, now resolved --monitor bleeding by counting pads --should f/u with her [facility] provider after BMT Premature menopause 12/26/19 16 Postmenopausal atrophic vaginitis 12/26/2015 Dyspareunia 12/26/2015 documented as of this encounter (statuses as of 04/19/2023) [facility] History of Past illness Narrative* Problem Noted Date Diagnosed Date Resolved Date Radiation induced neuropathy 10/18/2020 03/07/2023 Menorrhagia with regular cycle 03/15/2017 01/01/2018 Overview: Added automatically from request for surgery [id number] History of pulmonary embolism 04/25/2016 01/01/2018 Neoplastic [...] FOLLOW-UP 10/27/2012 Overview: 32 yo female from [place]. Family involved with care, at bedside. plan to discharge patient home - will arrange with case management for post op care as needed - follow up in OPD in 7-10 days Post-op pain 10/27/2012 12/26/2015 Overview: currently well controlled with [employer]. will start PO pain meds today 10/27. tolerating percocet, pain relatively well controlled. Hodgkin's disease with nodular sclerosis 05/27/2012 12/26/2015 Overview: Oncology history (per Dr. 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 Hodgkin's disease, unspecified 02/05/2012 05/11/2014 Vaginal bleeding 12/26/2015 Overview: --likely from thrombocytopenia. No menses in prior 8 months. Scant amount reported on 03/29 and 03/30, now resolved --monitor bleeding by counting pads --should f/u with her [facility] provider after BMT Premature menopause 12/26/19 16 Postmenopausal atrophic vaginitis 12/26/2015 Dyspareunia 12/26/2015 documented as of this encounter (statuses as of 04/20/2023) [facility] History of Past illness Narrative* Problem Noted Date Diagnosed Date Resolved Date Radiation induced neuropathy 10/18/2020 03/07/2023 Menorrhagia with regular cycle 03/15/2017 01/01/2018 Overview: Added automatically from request for surgery [id number] History of pulmonary embolism 04/25/2016 01/01/2018 Neoplastic [...] FOLLOW-UP 10/27/2012 Overview: 32 yo female from [place]. Family involved with care, at bedside. plan to discharge patient home - will arrange with case management for post op care as needed - follow up in OPD in 7-10 days Post-op pain 10/27/2012 12/26/2015 Overview: currently well controlled with [employer]. will start PO pain meds today 10/27. tolerating percocet, pain relatively well controlled. Hodgkin's disease with nodular sclerosis 05/27/2012 12/26/2015 Overview: Oncology history (per Dr. 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 Hodgkin's disease, unspecified 02/05/2012 05/11/2014 Vaginal bleeding 12/26/2015 Overview: --likely from thrombocytopenia. No menses in prior 8 months. Scant amount reported on 03/29 and 03/30, now resolved --monitor bleeding by counting pads --should f/u with her [employer] provider after BMT Premature menopause 12/26/19 16 Postmenopausal atrophic vaginitis 12/26/2015 Dyspareunia 12/26/2015 documented as of this encounter (statuses as of 05/07/2023) [facility] History of Past illness Narrative* Problem Noted Date Diagnosed Date Resolved Date Radiation induced neuropathy 10/18/2020 03/07/2023 Menorrhagia with regular cycle 03/15/2017 01/01/2018 Overview: Added automatically from request for surgery [id number] History of pulmonary embolism 04/25/2016 01/01/2018 Neoplastic [...] FOLLOW-UP 10/27/2012 Overview: 32 yo female from [place]. Family involved with care, at bedside. plan to discharge patient home - will arrange with case management for post op care as needed - follow up in OPD in 7-10 days Post-op pain 10/27/2012 12/26/2015 Overview: currently well controlled with [employer]. will start PO pain meds today 10/27. tolerating percocet, pain relatively well controlled. Hodgkin's disease with nodular sclerosis 05/27/2012 12/26/2015 Overview: Oncology history (per Dr. 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 Hodgkin's disease, unspecified 02/05/2012 05/11/2014 Vaginal bleeding 12/26/2015 Overview: --likely from thrombocytopenia. No menses in prior 8 months. Scant amount reported on 03/29 and 03/30, now resolved --monitor bleeding by counting pads --should f/u with her [employer] provider after BMT Premature menopause 12/26/19 16 Postmenopausal atrophic vaginitis 12/26/2015 Dyspareunia 12/26/2015 documented as of this encounter (statuses as of 05/10/2023) [facility] History of Past illness Narrative* Problem Noted Date Diagnosed Date Resolved Date Radiation induced neuropathy 10/18/2020 03/07/2023 Menorrhagia with regular cycle 03/15/2017 01/01/2018 Overview: Added automatically from request for surgery [id number] History of pulmonary embolism 04/25/2016 01/01/2018 Neoplastic [...] FOLLOW-UP 10/27/2012 Overview: 32 yo female from [place]. Family involved with care, at bedside. plan to discharge patient home - will arrange with case management for post op care as needed - follow up in OPD in 7-10 days Post-op pain 10/27/2012 12/26/2015 Overview: currently well controlled with [employer]. will start PO pain meds today 10/27. tolerating percocet, pain relatively well controlled. Hodgkin's disease with nodular sclerosis 05/27/2012 12/26/2015 Overview: Oncology history (per Dr. 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 Hodgkin's disease, unspecified 02/05/2012 05/11/2014 Vaginal bleeding 12/26/2015 Overview: --likely from thrombocytopenia. No menses in prior 8 months. Scant amount reported on 03/29 and 03/30, now resolved --monitor bleeding by counting pads --should f/u with her [employer] provider after BMT Premature menopause 12/26/19 16 Postmenopausal atrophic vaginitis 12/26/2015 Dyspareunia 12/26/2015 documented as of this encounter (statuses as of 05/13/2023) [facility] History of Past illness Narrative* Problem Noted Date Diagnosed Date Resolved Date Radiation induced neuropathy 10/18/2020 03/07/2023 Menorrhagia with regular cycle 03/15/2017 01/01/2018 Overview: Added automatically from request for surgery [id number] History of pulmonary embolism 04/25/2016 01/01/2018 Neoplastic [...] FOLLOW-UP 10/27/2012 Overview: 32 yo female from [place]. Family involved with care, at bedside. plan to discharge patient home - will arrange with case management for post op care as needed - follow up in OPD in 7-10 days Post-op pain 10/27/2012 12/26/2015 Overview: currently well controlled with [employer]. will start PO pain meds today 10/27. tolerating percocet, pain relatively well controlled. Hodgkin's disease with nodular sclerosis 05/27/2012 12/26/2015 Overview: Oncology history (per Dr. 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 Hodgkin's disease, unspecified 02/05/2012 05/11/2014 Vaginal bleeding 12/26/2015 Overview: --likely from thrombocytopenia. No menses in prior 8 months. Scant amount reported on 03/29 and 03/30, now resolved --monitor bleeding by counting pads --should f/u with her [employer] provider after BMT Premature menopause 12/26/19 16 Postmenopausal atrophic vaginitis 12/26/2015 Dyspareunia 12/26/2015 documented as of this encounter (statuses as of 05/15/2023) [facility] History of Past illness Narrative* Problem Noted Date Diagnosed Date Resolved Date Radiation induced neuropathy 10/18/2020 03/07/2023 Menorrhagia with regular cycle 03/15/2017 01/01/2018 Overview: Added automatically from request for surgery [id number] History of pulmonary embolism 04/25/2016 01/01/2018 Neoplastic (malignant) related fatigue 04/25/2016 01/01/2018 Hidradenitis suppurativa 01/17/2016 Vitamin D deficiency 06/09/2015 016 HyperCKemia 05/06/2015 12/26/2015 Elevated aldolase level 05/06/20152016 Chronic pain of both knees 05/06/2015 1 [...] FOLLOW-UP 10/27/2012 Overview: 32 yo female from [place]. Family involved with care, at bedside. plan to discharge patient home - will arrange with case management for post op care as needed - follow up in OPD in 7-10 days Post-op pain 10/27/2012 12/26/2015 Overview: currently well controlled with [employer]. will start PO pain meds today 10/27. tolerating percocet, pain relatively well controlled. Hodgkin's disease with nodular sclerosis 05/27/2012 12/26/2015 Overview: Oncology history (per Dr. 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 Hodgkin's disease, unspecified 02/05/2012 05/11/2014 Vaginal bleeding 12/26/2015 Overview: --likely from thrombocytopenia. No menses in prior 8 months. Scant amount reported on 03/29 and 03/30, now resolved --monitor bleeding by counting pads --should f/u with her [employer] provider after BMT Premature menopause 12/26/19 16 Postmenopausal atrophic vaginitis 12/26/2015 Dyspareunia 12/26/2015 documented as of this encounter (statuses as of 05/21/2023) [facility] History of Past illness Narrative* Problem Noted Date Diagnosed Date Resolved Date Radiation induced neuropathy 10/18/2020 03/07/2023 Menorrhagia with regular cycle 03/15/2017 01/01/2018 Overview: Added automatically from request for surgery [id number] History of pulmonary embolism 04/25/2016 01/01/2018 Neoplastic [...] FOLLOW-UP 10/27/2012 Overview: 32 yo female from [place]. Family involved with care, at bedside. plan to discharge patient home - will arrange with case management for post op care as needed - follow up in OPD in 7-10 days Post-op pain 10/27/2012 12/26/2015 Overview: currently well controlled with [employer]. will start PO pain meds today 10/27. tolerating percocet, pain relatively well controlled. Hodgkin's disease with nodular sclerosis 05/27/2012 12/26/2015 Overview: Oncology history (per Dr. 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 Hodgkin's disease, unspecified 02/05/2012 05/11/2014 Vaginal bleeding 12/26/2015 Overview: --likely from thrombocytopenia. No menses in prior 8 months. Scant amount reported on 03/29 and 03/30, now resolved --monitor bleeding by counting pads --should f/u with her [employer] provider after BMT Premature menopause 12/26/19 16 Postmenopausal atrophic vaginitis 12/26/2015 Dyspareunia 12/26/2015 documented as of this encounter (statuses as of 05/22/2023) [facility] History of Past illness Narrative* Problem Noted Date Diagnosed Date Resolved Date Radiation induced neuropathy 10/18/2020 03/07/2023 Menorrhagia with regular cycle 03/15/2017 01/01/2018 Overview: Added automatically from request for surgery [id number] History of pulmonary embolism 04/25/2016 01/01/2018 Neoplastic [...] FOLLOW-UP 10/27/2012 Overview: 32 yo female from [place]. Family involved with care, at bedside. plan to discharge patient home - will arrange with case management for post op care as needed - follow up in OPD in 7-10 days Post-op pain 10/27/2012 12/26/2015 Overview: currently well controlled with [employer]. will start PO pain meds today 10/27. tolerating percocet, pain relatively well controlled. Hodgkin's disease with nodular sclerosis 05/27/2012 12/26/2015 Overview: Oncology history (per Dr. 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 Hodgkin's disease, unspecified 02/05/2012 05/11/2014 Vaginal bleeding 12/26/2015 Overview: --likely from thrombocytopenia. No menses in prior 8 months. Scant amount reported on 03/29 and 03/30, now resolved --monitor bleeding by counting pads --should f/u with her [employer] provider after BMT Premature menopause 12/26/19 16 Postmenopausal atrophic vaginitis 12/26/2015 Dyspareunia 12/26/2015 documented as of this encounter (statuses as of 05/30/2023) [facility] History of Past illness Narrative* Problem Noted Date Diagnosed Date Resolved Date Radiation induced neuropathy 10/18/2020 03/07/2023 Menorrhagia with regular cycle 03/15/2017 01/01/2018 Overview: Added automatically from request for surgery [id number] History of pulmonary embolism 04/25/2016 01/01/2018 Neoplastic [...] FOLLOW-UP 10/27/2012 Overview: 32 yo female from [place]. Family involved with care, at bedside. plan to discharge patient home - will arrange with case management for post op care as needed - follow up in OPD in 7-10 days Post-op pain 10/27/2012 12/26/2015 Overview: currently well controlled with [employer]. will start PO pain meds today 10/27. tolerating percocet, pain relatively well controlled. Hodgkin's disease with nodular sclerosis 05/27/2012 12/26/2015 Overview: Oncology history (per Dr. 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 Hodgkin's disease, unspecified 02/05/2012 05/11/2014 Vaginal bleeding 12/26/2015 Overview: --likely from thrombocytopenia. No menses in prior 8 months. Scant amount reported on 03/29 and 03/30, now resolved --monitor bleeding by counting pads --should f/u with her [employer] provider after BMT Premature menopause 12/26/19 16 Postmenopausal atrophic vaginitis 12/26/2015 Dyspareunia 12/26/2015 documented as of this encounter (statuses as of 05/31/2023) [facility]-2021 History of Past illness Narrative* Problem Noted Date Diagnosed Date Resolved Date Radiation induced neuropathy 10/18/2020 03/07/2023 Menorrhagia with regular cycle 03/15/2017 01/01/2018 Overview: Added automatically from request for surgery [id number] History of pulmonary embolism 04/25/2016 01/01/2018 Neoplastic [...] FOLLOW-UP 10/27/2012 Overview: 32 yo female from [place], [place]. Family involved with care, at bedside. plan to discharge patient home - will arrange with case management for post op care as needed - follow up in OPD in 7-10 days Post-op pain 10/27/2012 12/26/2015 Overview: currently well controlled with [employer]. will start PO pain meds today 10/27. tolerating percocet, pain relatively well controlled. Hodgkin's disease with nodular sclerosis 05/27/2012 12/26/2015 Overview: Oncology history (per Dr. 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 Hodgkin's disease, unspecified 02/05/2012 05/11/2014 Vaginal bleeding 12/26/2015 Overview: --likely from thrombocytopenia. No menses in prior 8 months. Scant amount reported on 03/29 and 03/30, now resolved --monitor bleeding by counting pads --should f/u with her [facility] provider after BMT Premature menopause 12/26/19 16 Postmenopausal atrophic vaginitis 12/26/2015 Dyspareunia 12/26/2015 documented as of this encounter (statuses as of 05/31/2023) [facility] History of Past illness Narrative* Problem Noted Date Diagnosed Date Resolved Date Radiation induced neuropathy 10/18/2020 03/07/2023 Menorrhagia with regular cycle 03/15/2017 01/01/2018 Overview: Added automatically from request for surgery [id number] History of pulmonary embolism 04/25/2016 01/01/2018 Neoplastic [...] FOLLOW-UP 10/27/2012 Overview: 32 yo female from [place]. Family involved with care, at bedside. plan to discharge patient home - will arrange with case management for post op care as needed - follow up in OPD in 7-10 days Post-op pain 10/27/2012 12/26/2015 Overview: currently well controlled with [employer]. will start PO pain meds today 10/27. tolerating percocet, pain relatively well controlled. Hodgkin's disease with nodular sclerosis 05/27/2012 12/26/2015 Overview: Oncology history (per Dr. 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 Hodgkin's disease, unspecified 02/05/2012 05/11/2014 Vaginal bleeding 12/26/2015 Overview: --likely from thrombocytopenia. No menses in prior 8 months. Scant amount reported on 03/29 and 03/30, now resolved --monitor bleeding by counting pads --should f/u with her [facility] provider after BMT Premature menopause 12/26/19 16 Postmenopausal atrophic vaginitis 12/26/2015 Dyspareunia 12/26/2015 documented as of this encounter (statuses as of 06/01/2023) [facility] History of Past illness Narrative* Problem Noted Date Resolved Date Menorrhagia with regular cycle 03/15/2017 1 03/03/2017 Overview: Added automatically from request for surgery [id number] History of pulmonary embolism 04/25/2016 Neoplastic (malignant) [...] FOLLOW-UP 10/27/20122015 Overview: 32 yo female from [place]. Family involved with care, at bedside. plan to discharge patient home - will arrange with case management for post op care as needed - follow up in OPD in 7-10 days Post-op pain 10/27/2012 12/26/2015 Overview: currently well controlled with [employer]. will start PO pain meds today 10/27. tolerating percocet, pain relatively well controlled. Hodgkin's disease with nodular sclerosis 013 12/26/2015 Overview: Oncology history (per Dr. 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 Hodgkin's disease, unspecified 02/05/2012 0 05/11/2014 Vaginal bleeding 12/26/2015 Overview: --likely from thrombocytopenia. No menses in prior 8 months. Scant amount reported on 03/29 and 03/30, now resolved --monitor bleeding by counting pads --should f/u with her [facility] provider after BMT Premature menopause 12/26/2015 Postmenopausal atrophic vaginitis 12/26/2015 Dyspareunia 12/26/2015 documented as of this encounter (statuses as of 05/17/2021) [facility] History of Past illness Narrative* Problem Noted Date Resolved Date Menorrhagia with regular cycle 03/15/2017 1 03/03/2017 Overview: Added automatically from request for surgery [id number] History of pulmonary embolism 04/25/2016 Neoplastic (malignant) [...] FOLLOW-UP 10/27/20122015 Overview: 32 yo female from [place]. Family involved with care, at bedside. plan to discharge patient home - will arrange with case management for post op care as needed - follow up in OPD in 7-10 days Post-op pain 10/27/2012 12/26/2015 Overview: currently well controlled with [employer]. will start PO pain meds today 10/27. tolerating percocet, pain relatively well controlled. Hodgkin's disease with nodular sclerosis 013 12/26/2015 Overview: Oncology history (per Dr. 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 Hodgkin's disease, unspecified 02/05/2012 0 05/11/2014 Vaginal bleeding 12/26/2015 Overview: --likely from thrombocytopenia. No menses in prior 8 months. Scant amount reported on 03/29 and 03/30, now resolved --monitor bleeding by counting pads --should f/u with her [facility] provider after BMT Premature menopause 12/26/2015 Postmenopausal atrophic vaginitis 12/26/2015 Dyspareunia 12/26/2015 documented as of this encounter (statuses as of 05/17/2021) [facility] History of Past illness Narrative* Problem Noted Date Resolved Date Menorrhagia with regular cycle 03/15/2017 1 03/03/2017 Overview: Added automatically from request for surgery [id number] History of pulmonary embolism 04/25/2016 Neoplastic (malignant) [...] FOLLOW-UP 10/27/20122015 Overview: 32 yo female from [place]. Family involved with care, at bedside. plan to discharge patient home - will arrange with case management for post op care as needed - follow up in OPD in 7-10 days Post-op pain 10/27/2012 12/26/2015 Overview: currently well controlled with [employer]. will start PO pain meds today 10/27. tolerating percocet, pain relatively well controlled. Hodgkin's disease with nodular sclerosis 013 12/26/2015 Overview: Oncology history (per Dr. 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 Hodgkin's disease, unspecified 02/05/2012 0 05/11/2014 Vaginal bleeding 12/26/2015 Overview: --likely from thrombocytopenia. No menses in prior 8 months. Scant amount reported on 03/29 and 03/30, now resolved --monitor bleeding by counting pads --should f/u with her [facility] provider after BMT Premature menopause 12/26/2015 Postmenopausal atrophic vaginitis 12/26/2015 Dyspareunia 12/26/2015 documented as of this encounter (statuses as of 05/17/2021) [facility] History of Past illness Narrative* Problem Noted Date Resolved Date Menorrhagia with regular cycle 03/15/2017 1 03/03/2017 Overview: Added automatically from request for surgery [id number] History of pulmonary embolism 04/25/2016 Neoplastic (malignant) [...] FOLLOW-UP 10/27/20122015 Overview: 32 yo female from [place]. Family involved with care, at bedside. plan to discharge patient home - will arrange with case management for post op care as needed - follow up in OPD in 7-10 days Post-op pain 10/27/2012 12/26/2015 Overview: currently well controlled with [employer]. will start PO pain meds today 10/27. tolerating percocet, pain relatively well controlled. Hodgkin's disease with nodular sclerosis 013 12/26/2015 Overview: Oncology history (per Dr. 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 Hodgkin's disease, unspecified 02/05/2012 0 05/11/2014 Vaginal bleeding 12/26/2015 Overview: --likely from thrombocytopenia. No menses in prior 8 months. Scant amount reported on 03/29 and 03/30, now resolved --monitor bleeding by counting pads --should f/u with her [facility] provider after BMT Premature menopause 12/26/2015 Postmenopausal atrophic vaginitis 12/26/2015 Dyspareunia 12/26/2015 documented as of this encounter (statuses as of 05/17/2021) [facility] History of Past illness Narrative* Problem Noted Date Resolved Date Menorrhagia with regular cycle 03/15/2017 1 03/03/2017 Overview: Added automatically from request for surgery [id number] History of pulmonary embolism 04/25/2016 Neoplastic (malignant) [...] FOLLOW-UP 10/27/20122015 Overview: 32 yo female from [place]. Family involved with care, at bedside. plan to discharge patient home - will arrange with case management for post op care as needed - follow up in OPD in 7-10 days Post-op pain 10/27/2012 12/26/2015 Overview: currently well controlled with [employer]. will start PO pain meds today 10/27. tolerating percocet, pain relatively well controlled. Hodgkin's disease with nodular sclerosis 013 12/26/2015 Overview: Oncology history (per Dr. 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 Hodgkin's disease, unspecified 02/05/2012 0 05/11/2014 Vaginal bleeding 12/26/2015 Overview: --likely from thrombocytopenia. No menses in prior 8 months. Scant amount reported on 03/29 and 03/30, now resolved --monitor bleeding by counting pads --should f/u with her [facility] [facility] provider after BMT Premature menopause 12/26/2015 Postmenopausal atrophic vaginitis 12/26/2015 Dyspareunia 12/26/2015 documented as of this encounter (statuses as of 05/17/2021) [facility] History of Past illness Narrative* Problem Noted Date Resolved Date Menorrhagia with regular cycle 03/15/2017 1 03/03/2017 Overview: Added automatically from request for surgery [id number] History of pulmonary embolism 04/25/2016 Neoplastic (malignant) [...] FOLLOW-UP 10/27/20122015 Overview: 32 yo female from [place]. Family involved with care, at bedside. plan to discharge patient home - will arrange with case management for post op care as needed - follow up in OPD in 7-10 days Post-op pain 10/27/2012 12/26/2015 Overview: currently well controlled with [employer]. will start PO pain meds today 10/27. tolerating percocet, pain relatively well controlled. Hodgkin's disease with nodular sclerosis 013 12/26/2015 Overview: Oncology history (per Dr. 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 Hodgkin's disease, unspecified 02/05/2012 0 05/11/2014 Vaginal bleeding 12/26/2015 Overview: --likely from thrombocytopenia. No menses in prior 8 months. Scant amount reported on 03/29 and 03/30, now resolved --monitor bleeding by counting pads --should f/u with her [facility] provider after BMT Premature menopause 12/26/2015 Postmenopausal atrophic vaginitis 12/26/2015 Dyspareunia 12/26/2015 documented as of this encounter (statuses as of 05/17/2021) [facility] History of Past illness Narrative* Problem Noted Date Resolved Date Menorrhagia with regular cycle 03/15/2017 1 03/03/2017 Overview: Added automatically from request for surgery [id number] History of pulmonary embolism 04/25/2016 Neoplastic (malignant) [...] FOLLOW-UP 10/27/20122015 Overview: 32 yo female from [place]. Family involved with care, at bedside. plan to discharge patient home - will arrange with case management for post op care as needed - follow up in OPD in 7-10 days Post-op pain 10/27/2012 12/26/2015 Overview: currently well controlled with [employer]. will start PO pain meds today 10/27. tolerating percocet, pain relatively well controlled. Hodgkin's disease with nodular sclerosis 013 12/26/2015 Overview: Oncology history (per Dr. 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 Hodgkin's disease, unspecified 02/05/2012 0 05/11/2014 Vaginal bleeding 12/26/2015 Overview: --likely from thrombocytopenia. No menses in prior 8 months. Scant amount reported on 03/29 and 03/30, now resolved --monitor bleeding by counting pads --should f/u with her [facility] [facility] provider after BMT Premature menopause 12/26/2015 Postmenopausal atrophic vaginitis 12/26/2015 Dyspareunia 12/26/2015 documented as of this encounter (statuses as of 05/19/2021) [facility] of Past illness Narrative* Problem Noted Date Resolved Date Menorrhagia with regular cycle 03/15/2017 1 03/03/2017 Overview: Added automatically from request for surgery [id number] History of pulmonary embolism 04/25/2016 Neoplastic (malignant) [...] FOLLOW-UP 10/27/20122015 Overview: 32 yo female from [place]. Family involved with care, at bedside. plan to discharge patient home - will arrange with case management for post op care as needed - follow up in OPD in 7-10 days Post-op pain 10/27/2012 12/26/2015 Overview: currently well controlled with [employer]. will start PO pain meds today 10/27. tolerating percocet, pain relatively well controlled. Hodgkin's disease with nodular sclerosis 013 12/26/2015 Overview: Oncology history (per Dr. 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 Hodgkin's disease, unspecified 02/05/2012 0 05/11/2014 Vaginal bleeding 12/26/2015 Overview: --likely from thrombocytopenia. No menses in prior 8 months. Scant amount reported on 03/29 and 03/30, now resolved --monitor bleeding by counting pads --should f/u with her [facility] provider after BMT Premature menopause 12/26/2015 Postmenopausal atrophic vaginitis 12/26/2015 Dyspareunia 12/26/2015 documented as of this encounter (statuses as of 06/06/2021) [facility] of Past illness Narrative* Problem Noted Date Resolved Date Menorrhagia with regular cycle 03/15/2017 1 03/03/2017 Overview: Added automatically from request for surgery [id number] History of pulmonary embolism 04/25/2016 Neoplastic (malignant) [...] FOLLOW-UP 10/27/20122015 Overview: 32 yo female from [place]. Family involved with care, at bedside. plan to discharge patient home - will arrange with case management for post op care as needed - follow up in OPD in 7-10 days Post-op pain 10/27/2012 12/26/2015 Overview: currently well controlled with [employer]. will start PO pain meds today 10/27. tolerating percocet, pain relatively well controlled. Hodgkin's disease with nodular sclerosis 013 12/26/2015 Overview: Oncology history (per Dr. 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 Hodgkin's disease, unspecified 02/05/2012 0 05/11/2014 Vaginal bleeding 12/26/2015 Overview: --likely from thrombocytopenia. No menses in prior 8 months. Scant amount reported on 03/29 and 03/30, now resolved --monitor bleeding by counting pads --should f/u with her [facility] [facility] provider after BMT Premature menopause 12/26/2015 Postmenopausal atrophic vaginitis 12/26/2015 Dyspareunia 12/26/2015 documented as of this encounter (statuses as of 06/07/2021) [facility] Past [facility] Narrative* Problem Noted Date Resolved Date Menorrhagia with regular cycle 03/15/2017 1 03/03/2017 Overview: Added automatically from request for surgery [id number] History of pulmonary embolism 04/25/2016 Neoplastic (malignant) [...] FOLLOW-UP 10/27/20122015 Overview: 32 yo female from [place]. Family involved with care, at bedside. plan to discharge patient home - will arrange with case management for post op care as needed - follow up in OPD in 7-10 days Post-op pain 10/27/2012 12/26/2015 Overview: currently well controlled with [employer]. will start PO pain meds today 10/27. tolerating percocet, pain relatively well controlled. Hodgkin's disease with nodular sclerosis 013 12/26/2015 Overview: Oncology history (per Dr. 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 Hodgkin's disease, unspecified 02/05/2012 0 05/11/2014 Vaginal bleeding 12/26/2015 Overview: --likely from thrombocytopenia. No menses in prior 8 months. Scant amount reported on 03/29 and 03/30, now resolved --monitor bleeding by counting pads --should f/u with her [facility] provider after BMT Premature menopause 12/26/2015 Postmenopausal atrophic vaginitis 12/26/2015 Dyspareunia 12/26/2015 documented as of this encounter (statuses as of 06/14/2021) [facility] Past [facility] Narrative* Problem Noted Date Resolved Date Menorrhagia with regular cycle 03/15/2017 1 03/03/2017 Overview: Added automatically from request for surgery [id number] History of pulmonary embolism 04/25/2016 Neoplastic (malignant) [...] FOLLOW-UP 10/27/20122015 Overview: 32 yo female from [place]. Family involved with care, at bedside. plan to discharge patient home - will arrange with case management for post op care as needed - follow up in OPD in 7-10 days Post-op pain 10/27/2012 12/26/2015 Overview: currently well controlled with [employer]. will start PO pain meds today 10/27. tolerating percocet, pain relatively well controlled. Hodgkin's disease with nodular sclerosis 013 12/26/2015 Overview: Oncology history (per Dr. 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 Hodgkin's disease, unspecified 02/05/2012 0 05/11/2014 Vaginal bleeding 12/26/2015 Overview: --likely from thrombocytopenia. No menses in prior 8 months. Scant amount reported on 03/29 and 03/30, now resolved --monitor bleeding by counting pads --should f/u with her [employer] provider after BMT Premature menopause 12/26/2015 Postmenopausal atrophic vaginitis 12/26/2015 Dyspareunia 12/26/2015 documented as of this encounter (statuses as of 06/14/2021) [facility] Past [facility] Narrative* Problem Noted Date Resolved Date Menorrhagia with regular cycle 03/15/2017 1 03/03/2017 Overview: Added automatically from request for surgery [id number] History of pulmonary embolism 04/25/2016 Neoplastic (malignant) [...] FOLLOW-UP 10/27/20122015 Overview: 32 yo female from [place]. Family involved with care, at bedside. plan to discharge patient home - will arrange with case management for post op care as needed - follow up in OPD in 7-10 days Post-op pain 10/27/2012 12/26/2015 Overview: currently well controlled with [employer]. will start PO pain meds today 10/27. tolerating percocet, pain relatively well controlled. Hodgkin's disease with nodular sclerosis 013 12/26/2015 Overview: Oncology history (per Dr. 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 Hodgkin's disease, unspecified 02/05/2012 0 05/11/2014 Vaginal bleeding 12/26/2015 Overview: --likely from thrombocytopenia. No menses in prior 8 months. Scant amount reported on 03/29 and 03/30, now resolved --monitor bleeding by counting pads --should f/u with her [employer] provider after BMT Premature menopause 12/26/2015 Postmenopausal atrophic vaginitis 12/26/2015 Dyspareunia 12/26/2015 documented as of this encounter (statuses as of 06/15/2021) [facility] Past [facility] Narrative* Problem Noted Date Resolved Date Menorrhagia with regular cycle 03/15/2017 1 03/03/2017 Overview: Added automatically from request for surgery [id number] History of pulmonary embolism 04/25/2016 Neoplastic (malignant) [...] FOLLOW-UP 10/27/20122015 Overview: 32 yo female from [place]. Family involved with care, at bedside. plan to discharge patient home - will arrange with case management for post op care as needed - follow up in OPD in 7-10 days Post-op pain 10/27/2012 12/26/2015 Overview: currently well controlled with [employer]. will start PO pain meds today 10/27. tolerating percocet, pain relatively well controlled. Hodgkin's disease with nodular sclerosis 013 12/26/2015 Overview: Oncology history (per Dr. 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 Hodgkin's disease, unspecified 02/05/2012 0 05/11/2014 Vaginal bleeding 12/26/2015 Overview: --likely from thrombocytopenia. No menses in prior 8 months. Scant amount reported on 03/29 and 03/30, now resolved --monitor bleeding by counting pads --should f/u with her [employer] provider after BMT Premature menopause 12/26/2015 Postmenopausal atrophic vaginitis 12/26/2015 Dyspareunia 12/26/2015 documented as of this encounter (statuses as of 06/30/2021) [facility] Narrative* Problem Noted Date Resolved Date Menorrhagia with regular cycle 03/15/2017 1 03/03/2017 Overview: Added automatically from request for surgery [id number] History of pulmonary embolism 04/25/2016 Neoplastic (malignant) [...] FOLLOW-UP 10/27/20122015 Overview: 32 yo female from [place], [place]. Family involved with care, at bedside. plan to discharge patient home - will arrange with case management for post op care as needed - follow up in OPD in 7-10 days Post-op pain 10/27/2012 12/26/2015 Overview: currently well controlled with [employer]. will start PO pain meds today 10/27. tolerating percocet, pain relatively well controlled. Hodgkin's disease with nodular sclerosis 013 12/26/2015 Overview: Oncology history (per Dr. 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 Hodgkin's disease, unspecified 02/05/2012 0 05/11/2014 Vaginal bleeding 12/26/2015 Overview: --likely from thrombocytopenia. No menses in prior 8 months. Scant amount reported on 03/29 and 03/30, now resolved --monitor bleeding by counting pads --should f/u with her [facility] provider after BMT Premature menopause 12/26/2015 Postmenopausal atrophic vaginitis 12/26/2015 Dyspareunia 12/26/2015 documented as of this encounter (statuses as of 07/05/2021) [facility] History of Past illness Narrative* Problem Noted Date Resolved Date Menorrhagia with regular cycle 03/15/2017 1 03/03/2017 Overview: Added automatically from request for surgery [id number] History of pulmonary embolism 04/25/2016 Neoplastic (malignant) [...] FOLLOW-UP 10/27/20122015 Overview: 32 yo female from [place]. Family involved with care, at bedside. plan to discharge patient home - will arrange with case management for post op care as needed - follow up in OPD in 7-10 days Post-op pain 10/27/2012 12/26/2015 Overview: currently well controlled with [employer]. will start PO pain meds today 10/27. tolerating percocet, pain relatively well controlled. Hodgkin's disease with nodular sclerosis 013 12/26/2015 Overview: Oncology history (per Dr. 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 Hodgkin's disease, unspecified 02/05/2012 0 05/11/2014 Vaginal bleeding 12/26/2015 Overview: --likely from thrombocytopenia. No menses in prior 8 months. Scant amount reported on 03/29 and 03/30, now resolved --monitor bleeding by counting pads --should f/u with her [facility] provider after BMT Premature menopause 12/26/2015 Postmenopausal atrophic vaginitis 12/26/2015 Dyspareunia 12/26/2015 documented as of this encounter (statuses as of 07/06/2021) [facility] History of Past illness Narrative* Problem Noted Date Resolved Date Menorrhagia with regular cycle 03/15/2017 1 03/03/2017 Overview: Added automatically from request for surgery [id number] History of pulmonary embolism 04/25/2016 Neoplastic (malignant) [...] FOLLOW-UP 10/27/20122015 Overview: 32 yo female from [place]. Family involved with care, at bedside. plan to discharge patient home - will arrange with case management for post op care as needed - follow up in OPD in 7-10 days Post-op pain 10/27/2012 12/26/2015 Overview: currently well controlled with [employer]. will start PO pain meds today 10/27. tolerating percocet, pain relatively well controlled. Hodgkin's disease with nodular sclerosis 013 12/26/2015 Overview: Oncology history (per Dr. 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 Hodgkin's disease, unspecified 02/05/2012 0 05/11/2014 Vaginal bleeding 12/26/2015 Overview: --likely from thrombocytopenia. No menses in prior 8 months. Scant amount reported on 03/29 and 03/30, now resolved --monitor bleeding by counting pads --should f/u with her [facility] provider after BMT Premature menopause 12/26/2015 Postmenopausal atrophic vaginitis 12/26/2015 Dyspareunia 12/26/2015 documented as of this encounter (statuses as of 2021) [facility] History of Past illness Narrative* Problem Noted Date Resolved Date Menorrhagia with regular cycle 03/15/2017 1 03/03/2017 Overview: Added automatically from request for surgery [id number] History of pulmonary embolism 04/25/2016 Neoplastic (malignant) [...] FOLLOW-UP 10/27/20122015 Overview: 32 yo female from [place]. Family involved with care, at bedside. plan to discharge patient home - will arrange with case management for post op care as needed - follow up in OPD in 7-10 days Post-op pain 10/27/2012 12/26/2015 Overview: currently well controlled with [employer]. will start PO pain meds today 10/27. tolerating percocet, pain relatively well controlled. Hodgkin's disease with nodular sclerosis 013 12/26/2015 Overview: Oncology history (per Dr. 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 Hodgkin's disease, unspecified 02/05/2012 0 05/11/2014 Vaginal bleeding 12/26/2015 Overview: --likely from thrombocytopenia. No menses in prior 8 months. Scant amount reported on 03/29 and 03/30, now resolved --monitor bleeding by counting pads --should f/u with her [facility] provider after BMT Premature menopause 12/26/2015 Postmenopausal atrophic vaginitis 12/26/2015 Dyspareunia 12/26/2015 documented as of this encounter (statuses as of 2021) [facility] History of Past illness Narrative* Problem Noted Date Resolved Date Menorrhagia with regular cycle 03/15/2017 1 03/03/2017 Overview: Added automatically from request for surgery [id number] History of pulmonary embolism 04/25/2016 Neoplastic (malignant) [...] FOLLOW-UP 10/27/20122015 Overview: 32 yo female from [place]. Family involved with care, at bedside. plan to discharge patient home - will arrange with case management for post op care as needed - follow up in OPD in 7-10 days Post-op pain 10/27/2012 12/26/2015 Overview: currently well controlled with [employer]. will start PO pain meds today 10/27. tolerating percocet, pain relatively well controlled. Hodgkin's disease with nodular sclerosis 013 12/26/2015 Overview: Oncology history (per Dr. 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 Hodgkin's disease, unspecified 02/05/2012 0 05/11/2014 Vaginal bleeding 12/26/2015 Overview: --likely from thrombocytopenia. No menses in prior 8 months. Scant amount reported on 03/29 and 03/30, now resolved --monitor bleeding by counting pads --should f/u with her [facility] provider after BMT Premature menopause 12/26/2015 Postmenopausal atrophic vaginitis 12/26/2015 Dyspareunia 12/26/2015 documented as of this encounter (statuses as of 07/26/2021) [facility] History of Past illness Narrative* Problem Noted Date Resolved Date Menorrhagia with regular cycle 03/15/2017 1 03/03/2017 Overview: Added automatically from request for surgery [id number] History of pulmonary embolism 04/25/2016 Neoplastic (malignant) [...] FOLLOW-UP 10/27/20122015 Overview: 32 yo female from [place]. Family involved with care, at bedside. plan to discharge patient home - will arrange with case management for post op care as needed - follow up in OPD in 7-10 days Post-op pain 10/27/2012 12/26/2015 Overview: currently well controlled with [employer]. will start PO pain meds today 10/27. tolerating percocet, pain relatively well controlled. Hodgkin's disease with nodular sclerosis 013 12/26/2015 Overview: Oncology history (per Dr. 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 Hodgkin's disease, unspecified 02/05/2012 0 05/11/2014 Vaginal bleeding 12/26/2015 Overview: --likely from thrombocytopenia. No menses in prior 8 months. Scant amount reported on 03/29 and 03/30, now resolved --monitor bleeding by counting pads --should f/u with her [facility] provider after BMT Premature menopause 12/26/2015 Postmenopausal atrophic vaginitis 12/26/2015 Dyspareunia 12/26/2015 documented as of this encounter (statuses as of 07/28/2021) [facility] History of Past illness Narrative* Problem Noted Date Resolved Date Menorrhagia with regular cycle 03/15/2017 1 03/03/2017 Overview: Added automatically from request for surgery [id number] History of pulmonary embolism 04/25/2016 Neoplastic (malignant) [...] FOLLOW-UP 10/27/20122015 Overview: 32 yo female from [place]. Family involved with care, at bedside. plan to discharge patient home - will arrange with case management for post op care as needed - follow up in OPD in 7-10 days Post-op pain 10/27/2012 12/26/2015 Overview: currently well controlled with [employer]. will start PO pain meds today 10/27. tolerating percocet, pain relatively well controlled. Hodgkin's disease with nodular sclerosis 013 12/26/2015 Overview: Oncology history (per Dr. 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 Hodgkin's disease, unspecified 02/05/2012 0 05/11/2014 Vaginal bleeding 12/26/2015 Overview: --likely from thrombocytopenia. No menses in prior 8 months. Scant amount reported on 03/29 and 03/30, now resolved --monitor bleeding by counting pads --should f/u with her [facility] provider after BMT Premature menopause 12/26/2015 Postmenopausal atrophic vaginitis 12/26/2015 Dyspareunia 12/26/2015 documented as of this encounter (statuses as of 07/31/2021) [facility] History of Past illness Narrative* Problem Noted Date Resolved Date Menorrhagia with regular cycle 03/15/2017 1 03/03/2017 Overview: Added automatically from request for surgery [id number] History of pulmonary embolism 04/25/2016 Neoplastic (malignant) [...] FOLLOW-UP 10/27/20122015 Overview: 32 yo female from [place]. Family involved with care, at bedside. plan to discharge patient home - will arrange with case management for post op care as needed - follow up in OPD in 7-10 days Post-op pain 10/27/2012 12/26/2015 Overview: currently well controlled with [employer]. will start PO pain meds today 10/27. tolerating percocet, pain relatively well controlled. Hodgkin's disease with nodular sclerosis 013 12/26/2015 Overview: Oncology history (per Dr. 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 Hodgkin's disease, unspecified 02/05/2012 0 05/11/2014 Vaginal bleeding 12/26/2015 Overview: --likely from thrombocytopenia. No menses in prior 8 months. Scant amount reported on 03/29 and 03/30, now resolved --monitor bleeding by counting pads --should f/u with her [facility] provider after BMT Premature menopause 12/26/2015 Postmenopausal atrophic vaginitis 12/26/2015 Dyspareunia 12/26/2015 documented as of this encounter (statuses as of 07/31/2021) [facility] History of Past illness Narrative* Problem Noted Date Resolved Date Menorrhagia with regular cycle 03/15/2017 1 03/03/2017 Overview: Added automatically from request for surgery [id number] History of pulmonary embolism 04/25/2016 Neoplastic (malignant) [...] FOLLOW-UP 10/27/20122015 Overview: 32 yo female from [place]. Family involved with care, at bedside. plan to discharge patient home - will arrange with case management for post op care as needed - follow up in OPD in 7-10 days Post-op pain 10/27/2012 12/26/2015 Overview: currently well controlled with [employer]. will start PO pain meds today 10/27. tolerating percocet, pain relatively well controlled. Hodgkin's disease with nodular sclerosis 013 12/26/2015 Overview: Oncology history (per Dr. 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 Hodgkin's disease, unspecified 02/05/2012 0 05/11/2014 Vaginal bleeding 12/26/2015 Overview: --likely from thrombocytopenia. No menses in prior 8 months. Scant amount reported on 03/29 and 03/30, now resolved --monitor bleeding by counting pads --should f/u with her [facility] provider after BMT Premature menopause 12/26/2015 Postmenopausal atrophic vaginitis 12/26/2015 Dyspareunia 12/26/2015 documented as of this encounter (statuses as of 08/03/2021) [facility] History of Past illness Narrative* Problem Noted Date Resolved Date Menorrhagia with regular cycle 03/15/2017 1 03/03/2017 Overview: Added automatically from request for surgery [id number] History of pulmonary embolism 04/25/2016 Neoplastic (malignant) [...] FOLLOW-UP 10/27/20122015 Overview: 32 yo female from [place]. Family involved with care, at bedside. plan to discharge patient home - will arrange with case management for post op care as needed - follow up in OPD in 7-10 days Post-op pain 10/27/2012 12/26/2015 Overview: currently well controlled with [employer]. will start PO pain meds today 10/27. tolerating percocet, pain relatively well controlled. Hodgkin's disease with nodular sclerosis 013 12/26/2015 Overview: Oncology history (per Dr. 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 Hodgkin's disease, unspecified 02/05/2012 0 05/11/2014 Vaginal bleeding 12/26/2015 Overview: --likely from thrombocytopenia. No menses in prior 8 months. Scant amount reported on 03/29 and 03/30, now resolved --monitor bleeding by counting pads --should f/u with her [facility] provider after BMT Premature menopause 12/26/2015 Postmenopausal atrophic vaginitis 12/26/2015 Dyspareunia 12/26/2015 documented as of this encounter (statuses as of 08/15/2021) [facility] History of Past illness Narrative* Problem Noted Date Resolved Date Menorrhagia with regular cycle 03/15/2017 1 03/03/2017 Overview: Added automatically from request for surgery [id number] History of pulmonary embolism 04/25/2016 Neoplastic (malignant) [...] FOLLOW-UP 10/27/20122015 Overview: 32 yo female from [place]. Family involved with care, at bedside. plan to discharge patient home - will arrange with case management for post op care as needed - follow up in OPD in 7-10 days Post-op pain 10/27/2012 12/26/2015 Overview: currently well controlled with [employer]. will start PO pain meds today 10/27. tolerating percocet, pain relatively well controlled. Hodgkin's disease with nodular sclerosis 013 12/26/2015 Overview: Oncology history (per Dr. 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 Hodgkin's disease, unspecified 02/05/2012 0 05/11/2014 Vaginal bleeding 12/26/2015 Overview: --likely from thrombocytopenia. No menses in prior 8 months. Scant amount reported on 03/29 and 03/30, now resolved --monitor bleeding by counting pads --should f/u with her [facility] provider after BMT Premature menopause 12/26/2015 Postmenopausal atrophic vaginitis 12/26/2015 Dyspareunia 12/26/2015 documented as of this encounter (statuses as of 08/16/2021) [facility] History of Past illness Narrative* Problem Noted Date Resolved Date Menorrhagia with regular cycle 03/15/2017 1 03/03/2017 Overview: Added automatically from request for surgery [id number] History of pulmonary embolism 04/25/2016 Neoplastic (malignant) [...] FOLLOW-UP 10/27/20122015 Overview: 32 yo female from [place]. Family involved with care, at bedside. plan to discharge patient home - will arrange with case management for post op care as needed - follow up in OPD in 7-10 days Post-op pain 10/27/2012 12/26/2015 Overview: currently well controlled with [employer]. will start PO pain meds today 10/27. tolerating percocet, pain relatively well controlled. Hodgkin's disease with nodular sclerosis 013 12/26/2015 Overview: Oncology history (per Dr. 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 Hodgkin's disease, unspecified 02/05/2012 0 05/11/2014 Vaginal bleeding 12/26/2015 Overview: --likely from thrombocytopenia. No menses in prior 8 months. Scant amount reported on 03/29 and 03/30, now resolved --monitor bleeding by counting pads --should f/u with her [facility] [facility] provider after BMT Premature menopause 12/26/2015 Postmenopausal atrophic vaginitis 12/26/2015 Dyspareunia 12/26/2015 documented as of this encounter (statuses as of 08/30/2021) [facility] of Past illness Narrative* Problem Noted Date Resolved Date Menorrhagia with regular cycle 03/15/2017 1 03/03/2017 Overview: Added automatically from request for surgery [id number] History of pulmonary embolism 04/25/2016 Neoplastic (malignant) [...] FOLLOW-UP 10/27/20122015 Overview: 32 yo female from [place]. Family involved with care, at bedside. plan to discharge patient home - will arrange with case management for post op care as needed - follow up in OPD in 7-10 days Post-op pain 10/27/2012 12/26/2015 Overview: currently well controlled with [employer]. will start PO pain meds today 10/27. tolerating percocet, pain relatively well controlled. Hodgkin's disease with nodular sclerosis 013 12/26/2015 Overview: Oncology history (per Dr. 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 Hodgkin's disease, unspecified 02/05/2012 0 05/11/2014 Vaginal bleeding 12/26/2015 Overview: --likely from thrombocytopenia. No menses in prior 8 months. Scant amount reported on 03/29 and 03/30, now resolved --monitor bleeding by counting pads --should f/u with her [facility] provider after BMT Premature menopause 12/26/2015 Postmenopausal atrophic vaginitis 12/26/2015 Dyspareunia 12/26/2015 documented as of this encounter (statuses as of 09/04/2021) [facility] Past [facility] Narrative* Problem Noted Date Resolved Date Menorrhagia with regular cycle 03/15/2017 1 03/03/2017 Overview: Added automatically from request for surgery [id number] History of pulmonary embolism 04/25/2016 Neoplastic (malignant) [...] FOLLOW-UP 10/27/20122015 Overview: 32 yo female from [place]. Family involved with care, at bedside. plan to discharge patient home - will arrange with case management for post op care as needed - follow up in OPD in 7-10 days Post-op pain 10/27/2012 12/26/2015 Overview: currently well controlled with [employer]. will start PO pain meds today 10/27. tolerating percocet, pain relatively well controlled. Hodgkin's disease with nodular sclerosis 013 12/26/2015 Overview: Oncology history (per Dr. 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 Hodgkin's disease, unspecified 02/05/2012 0 05/11/2014 Vaginal bleeding 12/26/2015 Overview: --likely from thrombocytopenia. No menses in prior 8 months. Scant amount reported on 03/29 and 03/30, now resolved --monitor bleeding by counting pads --should f/u with her [employer] [facility] provider after BMT Premature menopause 12/26/2015 Postmenopausal atrophic vaginitis 12/26/2015 Dyspareunia 12/26/2015 documented as of this encounter (statuses as of 09/04/2021) [facility] of Past illness Narrative* Problem Noted Date Resolved Date Menorrhagia with regular cycle 03/15/2017 1 03/03/2017 Overview: Added automatically from request for surgery [id number] History of pulmonary embolism 04/25/2016 Neoplastic (malignant) [...] FOLLOW-UP 10/27/20122015 Overview: 32 yo female from [place]. Family involved with care, at bedside. plan to discharge patient home - will arrange with case management for post op care as needed - follow up in OPD in 7-10 days Post-op pain 10/27/2012 12/26/2015 Overview: currently well controlled with [employer]. will start PO pain meds today 10/27. tolerating percocet, pain relatively well controlled. Hodgkin's disease with nodular sclerosis 013 12/26/2015 Overview: Oncology history (per Dr. 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 Hodgkin's disease, unspecified 02/05/2012 0 05/11/2014 Vaginal bleeding 12/26/2015 Overview: --likely from thrombocytopenia. No menses in prior 8 months. Scant amount reported on 03/29 and 03/30, now resolved --monitor bleeding by counting pads --should f/u with her [employer] provider after BMT Premature menopause 12/26/2015 Postmenopausal atrophic vaginitis 12/26/2015 Dyspareunia 12/26/2015 documented as of this encounter (statuses as of 09/05/2021) [facility] Past illness Narrative* Problem Noted Date Resolved Date Menorrhagia with regular cycle 03/15/2017 1 03/03/2017 Overview: Added automatically from request for surgery [id number] History of pulmonary embolism 04/25/2016 Neoplastic (malignant) [...] FOLLOW-UP 10/27/20122015 Overview: 32 yo female from [place]. Family involved with care, at bedside. plan to discharge patient home - will arrange with case management for post op care as needed - follow up in OPD in 7-10 days Post-op pain 10/27/2012 12/26/2015 Overview: currently well controlled with [employer]. will start PO pain meds today 10/27. tolerating percocet, pain relatively well controlled. Hodgkin's disease with nodular sclerosis 013 12/26/2015 Overview: Oncology history (per Dr. 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 Hodgkin's disease, unspecified 02/05/2012 0 05/11/2014 Vaginal bleeding 12/26/2015 Overview: --likely from thrombocytopenia. No menses in prior 8 months. Scant amount reported on 03/29 and 03/30, now resolved --monitor bleeding by counting pads --should f/u with her [facility] provider after BMT Premature menopause 12/26/2015 Postmenopausal atrophic vaginitis 12/26/2015 Dyspareunia 12/26/2015 documented as of this encounter (statuses as of 09/06/2021) [facility] History of Past illness Narrative* Problem Noted Date Resolved Date Menorrhagia with regular cycle 03/15/2017 1 03/03/2017 Overview: Added automatically from request for surgery [id number] History of pulmonary embolism 04/25/2016 Neoplastic (malignant) [...] FOLLOW-UP 10/27/20122015 Overview: 32 yo female from [place], [place]. Family involved with care, at bedside. plan to discharge patient home - will arrange with case management for post op care as needed - follow up in OPD in 7-10 days Post-op pain 10/27/2012 12/26/2015 Overview: currently well controlled with [employer]. will start PO pain meds today 10/27. tolerating percocet, pain relatively well controlled. Hodgkin's disease with nodular sclerosis 013 12/26/2015 Overview: Oncology history (per Dr. 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 Hodgkin's disease, unspecified 02/05/2012 0 05/11/2014 Vaginal bleeding 12/26/2015 Overview: --likely from thrombocytopenia. No menses in prior 8 months. Scant amount reported on 03/29 and 03/30, now resolved --monitor bleeding by counting pads --should f/u with her [facility] provider after BMT Premature menopause 12/26/2015 Postmenopausal atrophic vaginitis 12/26/2015 Dyspareunia 12/26/2015 documented as of this encounter (statuses as of 09/11/2021) [facility] History of Past illness Narrative* Problem Noted Date Resolved Date Menorrhagia with regular cycle 03/15/2017 1 03/03/2017 Overview: Added automatically from request for surgery [id number] History of pulmonary embolism 04/25/2016 Neoplastic (malignant) [...] FOLLOW-UP 10/27/20122015 Overview: 32 yo female from [place]. Family involved with care, at bedside. plan to discharge patient home - will arrange with case management for post op care as needed - follow up in OPD in 7-10 days Post-op pain 10/27/2012 12/26/2015 Overview: currently well controlled with [employer]. will start PO pain meds today 10/27. tolerating percocet, pain relatively well controlled. Hodgkin's disease with nodular sclerosis 013 12/26/2015 Overview: Oncology history (per Dr. 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 Hodgkin's disease, unspecified 02/05/2012 0 05/11/2014 Vaginal bleeding 12/26/2015 Overview: --likely from thrombocytopenia. No menses in prior 8 months. Scant amount reported on 03/29 and 03/30, now resolved --monitor bleeding by counting pads --should f/u with her [facility] provider after BMT Premature menopause 12/26/2015 Postmenopausal atrophic vaginitis 12/26/2015 Dyspareunia 12/26/2015 documented as of this encounter (statuses as of 09/22/2021) [facility] History of Past illness Narrative* Problem Noted Date Resolved Date Menorrhagia with regular cycle 03/15/2017 1 03/03/2017 Overview: Added automatically from request for surgery [id number] History of pulmonary embolism 04/25/2016 Neoplastic (malignant) [...] FOLLOW-UP 10/27/20122015 Overview: 32 yo female from [place]. Family involved with care, at bedside. plan to discharge patient home - will arrange with case management for post op care as needed - follow up in OPD in 7-10 days Post-op pain 10/27/2012 12/26/2015 Overview: currently well controlled with [employer]. will start PO pain meds today 10/27. tolerating percocet, pain relatively well controlled. Hodgkin's disease with nodular sclerosis 013 12/26/2015 Overview: Oncology history (per Dr. 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 Hodgkin's disease, unspecified 02/05/2012 0 05/11/2014 Vaginal bleeding 12/26/2015 Overview: --likely from thrombocytopenia. No menses in prior 8 months. Scant amount reported on 03/29 and 03/30, now resolved --monitor bleeding by counting pads --should f/u with her [facility] provider after BMT Premature menopause 12/26/2015 Postmenopausal atrophic vaginitis 12/26/2015 Dyspareunia 12/26/2015 documented as of this encounter (statuses as of 09/22/2021) [facility] History of Past illness Narrative* Problem Noted Date Resolved Date Menorrhagia with regular cycle 03/15/2017 1 03/03/2017 Overview: Added automatically from request for surgery [id number] History of pulmonary embolism 04/25/2016 Neoplastic (malignant) [...] FOLLOW-UP 10/27/20122015 Overview: 32 yo female from [place]. Family involved with care, at bedside. plan to discharge patient home - will arrange with case management for post op care as needed - follow up in OPD in 7-10 days Post-op pain 10/27/2012 12/26/2015 Overview: currently well controlled with [employer]. will start PO pain meds today 10/27. tolerating percocet, pain relatively well controlled. Hodgkin's disease with nodular sclerosis 013 12/26/2015 Overview: Oncology history (per Dr. 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 Hodgkin's disease, unspecified 02/05/2012 0 05/11/2014 Vaginal bleeding 12/26/2015 Overview: --likely from thrombocytopenia. No menses in prior 8 months. Scant amount reported on 03/29 and 03/30, now resolved --monitor bleeding by counting pads --should f/u with her [facility] provider after BMT Premature menopause 12/26/2015 Postmenopausal atrophic vaginitis 12/26/2015 Dyspareunia 12/26/2015 documented as of this encounter (statuses as of 10/02/2021) [facility] History of Past illness Narrative* Problem Noted Date Resolved Date Menorrhagia with regular cycle 03/15/2017 1 03/03/2017 Overview: Added automatically from request for surgery [id number] History of pulmonary embolism 04/25/2016 Neoplastic (malignant) [...] FOLLOW-UP 10/27/20122015 Overview: 32 yo female from [place]. Family involved with care, at bedside. plan to discharge patient home - will arrange with case management for post op care as needed - follow up in OPD in 7-10 days Post-op pain 10/27/2012 12/26/2015 Overview: currently well controlled with [employer]. will start PO pain meds today 10/27. tolerating percocet, pain relatively well controlled. Hodgkin's disease with nodular sclerosis 013 12/26/2015 Overview: Oncology history (per Dr. 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 Hodgkin's disease, unspecified 02/05/2012 0 05/11/2014 Vaginal bleeding 12/26/2015 Overview: --likely from thrombocytopenia. No menses in prior 8 months. Scant amount reported on 03/29 and 03/30, now resolved --monitor bleeding by counting pads --should f/u with her [facility] provider after BMT Premature menopause 12/26/2015 Postmenopausal atrophic vaginitis 12/26/2015 Dyspareunia 12/26/2015 documented as of this encounter (statuses as of 10/05/2021) [facility] History of Past illness Narrative* Problem Noted Date Resolved Date Menorrhagia with regular cycle 03/15/2017 1 03/03/2017 Overview: Added automatically from request for surgery [id number] History of pulmonary embolism 04/25/2016 Neoplastic (malignant) [...] FOLLOW-UP 10/27/20122015 Overview: 32 yo female from [place]. Family involved with care, at bedside. plan to discharge patient home - will arrange with case management for post op care as needed - follow up in OPD in 7-10 days Post-op pain 10/27/2012 12/26/2015 Overview: currently well controlled with [employer]. will start PO pain meds today 10/27. tolerating percocet, pain relatively well controlled. Hodgkin's disease with nodular sclerosis 013 12/26/2015 Overview: Oncology history (per Dr. 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 Hodgkin's disease, unspecified 02/05/2012 0 05/11/2014 Vaginal bleeding 12/26/2015 Overview: --likely from thrombocytopenia. No menses in prior 8 months. Scant amount reported on 03/29 and 03/30, now resolved --monitor bleeding by counting pads --should f/u with her [facility] [facility] provider after BMT Premature menopause 12/26/2015 Postmenopausal atrophic vaginitis 12/26/2015 Dyspareunia 12/26/2015 documented as of this encounter (statuses as of 10/16/2021) [facility] History of Past illness Narrative* Problem Noted Date Resolved Date Menorrhagia with regular cycle 03/15/2017 1 03/03/2017 Overview: Added automatically from request for surgery [id number] History of pulmonary embolism 04/25/2016 Neoplastic (malignant) [...] FOLLOW-UP 10/27/20122015 Overview: 32 yo female from [place]. Family involved with care, at bedside. plan to discharge patient home - will arrange with case management for post op care as needed - follow up in OPD in 7-10 days Post-op pain 10/27/2012 12/26/2015 Overview: currently well controlled with [employer]. will start PO pain meds today 10/27. tolerating percocet, pain relatively well controlled. Hodgkin's disease with nodular sclerosis 013 12/26/2015 Overview: Oncology history (per Dr. 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 Hodgkin's disease, unspecified 02/05/2012 0 05/11/2014 Vaginal bleeding 12/26/2015 Overview: --likely from thrombocytopenia. No menses in prior 8 months. Scant amount reported on 03/29 and 03/30, now resolved --monitor bleeding by counting pads --should f/u with her [facility] provider after BMT Premature menopause 12/26/2015 Postmenopausal atrophic vaginitis 12/26/2015 Dyspareunia 12/26/2015 documented as of this encounter (statuses as of 10/18/2021) [facility] History of Past illness Narrative* Problem Noted Date Resolved Date Menorrhagia with regular cycle 03/15/2017 1 03/03/2017 Overview: Added automatically from request for surgery [id number] History of pulmonary embolism 04/25/2016 Neoplastic (malignant) [...] FOLLOW-UP 10/27/20122015 Overview: 32 yo female from [place]. Family involved with care, at bedside. plan to discharge patient home - will arrange with case management for post op care as needed - follow up in OPD in 7-10 days Post-op pain 10/27/2012 12/26/2015 Overview: currently well controlled with [employer]. will start PO pain meds today 10/27. tolerating percocet, pain relatively well controlled. Hodgkin's disease with nodular sclerosis 013 12/26/2015 Overview: Oncology history (per Dr. 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 Hodgkin's disease, unspecified 02/05/2012 0 05/11/2014 Vaginal bleeding 12/26/2015 Overview: --likely from thrombocytopenia. No menses in prior 8 months. Scant amount reported on 03/29 and 03/30, now resolved --monitor bleeding by counting pads --should f/u with her [facility] [facility] provider after BMT Premature menopause 12/26/2015 Postmenopausal atrophic vaginitis 12/26/2015 Dyspareunia 12/26/2015 documented as of this encounter (statuses as of 10/25/2021) [facility] History of Past illness Narrative* Problem Noted Date Resolved Date Menorrhagia with regular cycle 03/15/2017 1 03/03/2017 Overview: Added automatically from request for surgery [id number] History of pulmonary embolism 04/25/2016 Neoplastic (malignant) [...] FOLLOW-UP 10/27/20122015 Overview: 32 yo female from [place]. Family involved with care, at bedside. plan to discharge patient home - will arrange with case management for post op care as needed - follow up in OPD in 7-10 days Post-op pain 10/27/2012 12/26/2015 Overview: currently well controlled with [employer]. will start PO pain meds today 10/27. tolerating percocet, pain relatively well controlled. Hodgkin's disease with nodular sclerosis 013 12/26/2015 Overview: Oncology history (per Dr. 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 Hodgkin's disease, unspecified 02/05/2012 0 05/11/2014 Vaginal bleeding 12/26/2015 Overview: --likely from thrombocytopenia. No menses in prior 8 months. Scant amount reported on 03/29 and 03/30, now resolved --monitor bleeding by counting pads --should f/u with her [employer] provider after BMT Premature menopause 12/26/2015 Postmenopausal atrophic vaginitis 12/26/2015 Dyspareunia 12/26/2015 documented as of this encounter (statuses as of 10/25/2021) [facility] History of Past illness Narrative* Problem Noted Date Resolved Date Menorrhagia with regular cycle 03/15/2017 1 03/03/2017 Overview: Added automatically from request for surgery [id number] History of pulmonary embolism 04/25/2016 Neoplastic (malignant) [...] FOLLOW-UP 10/27/20122015 Overview: 32 yo female from [place]. Family involved with care, at bedside. plan to discharge patient home - will arrange with case management for post op care as needed - follow up in OPD in 7-10 days Post-op pain 10/27/2012 12/26/2015 Overview: currently well controlled with [employer]. will start PO pain meds today 10/27. tolerating percocet, pain relatively well controlled. Hodgkin's disease with nodular sclerosis 013 12/26/2015 Overview: Oncology history (per Dr. 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 Hodgkin's disease, unspecified 02/05/2012 0 05/11/2014 Vaginal bleeding 12/26/2015 Overview: --likely from thrombocytopenia. No menses in prior 8 months. Scant amount reported on 03/29 and 03/30, now resolved --monitor bleeding by counting pads --should f/u with her [employer] provider after BMT Premature menopause 12/26/2015 Postmenopausal atrophic vaginitis 12/26/2015 Dyspareunia 12/26/2015 documented as of this encounter (statuses as of 10/26/2021) [facility] History of Past illness Narrative* Problem Noted Date Resolved Date Menorrhagia with regular cycle 03/15/2017 1 03/03/2017 Overview: Added automatically from request for surgery [id number] History of pulmonary embolism 04/25/2016 Neoplastic (malignant) [...] FOLLOW-UP 10/27/20122015 Overview: 32 yo female from [place]. Family involved with care, at bedside. plan to discharge patient home - will arrange with case management for post op care as needed - follow up in OPD in 7-10 days Post-op pain 10/27/2012 12/26/2015 Overview: currently well controlled with [employer]. will start PO pain meds today 10/27. tolerating percocet, pain relatively well controlled. Hodgkin's disease with nodular sclerosis 013 12/26/2015 Overview: Oncology history (per Dr. 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 Hodgkin's disease, unspecified 02/05/2012 0 05/11/2014 Vaginal bleeding 12/26/2015 Overview: --likely from thrombocytopenia. No menses in prior 8 months. Scant amount reported on 03/29 and 03/30, now resolved --monitor bleeding by counting pads --should f/u with her [employer] provider after BMT Premature menopause 12/26/2015 Postmenopausal atrophic vaginitis 12/26/2015 Dyspareunia 12/26/2015 documented as of this encounter (statuses as of 10/26/2021) [facility] Past illness Narrative* Problem Noted Date Resolved Date Menorrhagia with regular cycle 03/15/2017 1 03/03/2017 Overview: Added automatically from request for surgery [id number] History of pulmonary embolism 04/25/2016 Neoplastic (malignant) [...] FOLLOW-UP 10/27/20122015 Overview: 32 yo female from [place]. Family involved with care, at bedside. plan to discharge patient home - will arrange with case management for post op care as needed - follow up in OPD in 7-10 days Post-op pain 10/27/2012 12/26/2015 Overview: currently well controlled with [employer]. will start PO pain meds today 10/27. tolerating percocet, pain relatively well controlled. Hodgkin's disease with nodular sclerosis 013 12/26/2015 Overview: Oncology history (per Dr. 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 Hodgkin's disease, unspecified 02/05/2012 0 05/11/2014 Vaginal bleeding 12/26/2015 Overview: --likely from thrombocytopenia. No menses in prior 8 months. Scant amount reported on 03/29 and 03/30, now resolved --monitor bleeding by counting pads --should f/u with her [employer] provider after BMT Premature menopause 12/26/2015 Postmenopausal atrophic vaginitis 12/26/2015 Dyspareunia 12/26/2015 documented as of this encounter (statuses as of 10/31/2021) [facility] Past [facility] Narrative* Problem Noted Date Resolved Date Menorrhagia with regular cycle 03/15/2017 1 03/03/2017 Overview: Added automatically from request for surgery [id number] History of pulmonary embolism 04/25/2016 Neoplastic (malignant) [...] FOLLOW-UP 10/27/20122015 Overview: 32 yo female from [place]. Family involved with care, at bedside. plan to discharge patient home - will arrange with case management for post op care as needed - follow up in OPD in 7-10 days Post-op pain 10/27/2012 12/26/2015 Overview: currently well controlled with [employer]. will start PO pain meds today 10/27. tolerating percocet, pain relatively well controlled. Hodgkin's disease with nodular sclerosis 013 12/26/2015 Overview: Oncology history (per Dr. 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 Hodgkin's disease, unspecified 02/05/2012 0 05/11/2014 Vaginal bleeding 12/26/2015 Overview: --likely from thrombocytopenia. No menses in prior 8 months. Scant amount reported on 03/29 and 03/30, now resolved --monitor bleeding by counting pads --should f/u with her [employer] provider after BMT Premature menopause 12/26/2015 Postmenopausal atrophic vaginitis 12/26/2015 Dyspareunia 12/26/2015 documented as of this encounter (statuses as of 11/08/2021) [facility] Past illness Narrative* Problem Noted Date Resolved Date Menorrhagia with regular cycle 03/15/2017 1 03/03/2017 Overview: Added automatically from request for surgery [id number] History of pulmonary embolism 04/25/2016 Neoplastic (malignant) [...] FOLLOW-UP 10/27/20122015 Overview: 32 yo female from [place]. Family involved with care, at bedside. plan to discharge patient home - will arrange with case management for post op care as needed - follow up in OPD in 7-10 days Post-op pain 10/27/2012 12/26/2015 Overview: currently well controlled with [employer]. will start PO pain meds today 10/27. tolerating percocet, pain relatively well controlled. Hodgkin's disease with nodular sclerosis 013 12/26/2015 Overview: Oncology history (per Dr. 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 Hodgkin's disease, unspecified 02/05/2012 0 05/11/2014 Vaginal bleeding 12/26/2015 Overview: --likely from thrombocytopenia. No menses in prior 8 months. Scant amount reported on 03/29 and 03/30, now resolved --monitor bleeding by counting pads --should f/u with her [employer] provider after BMT Premature menopause 12/26/2015 Postmenopausal atrophic vaginitis 12/26/2015 Dyspareunia 12/26/2015 documented as of this encounter (statuses as of 11/13/2021) [facility] Past illness Narrative* Problem Noted Date Resolved Date Menorrhagia with regular cycle 03/15/2017 1 03/03/2017 Overview: Added automatically from request for surgery [id number] History of pulmonary embolism 04/25/2016 Neoplastic (malignant) [...] FOLLOW-UP 10/27/20122015 Overview: 32 yo female from [place]. Family involved with care, at bedside. plan to discharge patient home - will arrange with case management for post op care as needed - follow up in OPD in 7-10 days Post-op pain 10/27/2012 12/26/2015 Overview: currently well controlled with [employer]. will start PO pain meds today 10/27. tolerating percocet, pain relatively well controlled. Hodgkin's disease with nodular sclerosis 013 12/26/2015 Overview: Oncology history (per Dr. 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 Hodgkin's disease, unspecified 02/05/2012 0 05/11/2014 Vaginal bleeding 12/26/2015 Overview: --likely from thrombocytopenia. No menses in prior 8 months. Scant amount reported on 03/29 and 03/30, now resolved --monitor bleeding by counting pads --should f/u with her [facility] provider after BMT Premature menopause 12/26/2015 Postmenopausal atrophic vaginitis 12/26/2015 Dyspareunia 12/26/2015 documented as of this encounter (statuses as of 11/13/2021) [facility] History of Past illness Narrative* Problem Noted Date Resolved Date Menorrhagia with regular cycle 03/15/2017 1 03/03/2017 Overview: Added automatically from request for surgery [id number] History of pulmonary embolism 04/25/2016 Neoplastic (malignant) [...] FOLLOW-UP 10/27/20122015 Overview: 32 yo female from [place], [place]. Family involved with care, at bedside. plan to discharge patient home - will arrange with case management for post op care as needed - follow up in OPD in 7-10 days Post-op pain 10/27/2012 12/26/2015 Overview: currently well controlled with [employer]. will start PO pain meds today 10/27. tolerating percocet, pain relatively well controlled. Hodgkin's disease with nodular sclerosis 013 12/26/2015 Overview: Oncology history (per Dr. 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 Hodgkin's disease, unspecified 02/05/2012 0 05/11/2014 Vaginal bleeding 12/26/2015 Overview: --likely from thrombocytopenia. No menses in prior 8 months. Scant amount reported on 03/29 and 03/30, now resolved --monitor bleeding by counting pads --should f/u with her [facility] provider after BMT Premature menopause 12/26/2015 Postmenopausal atrophic vaginitis 12/26/2015 Dyspareunia 12/26/2015 documented as of this encounter (statuses as of 11/14/2021) [facility] History of Past illness Narrative* Problem Noted Date Resolved Date Menorrhagia with regular cycle 03/15/2017 1 03/03/2017 Overview: Added automatically from request for surgery [id number] History of pulmonary embolism 04/25/2016 Neoplastic (malignant) [...] FOLLOW-UP 10/27/20122015 Overview: 32 yo female from [place]. Family involved with care, at bedside. plan to discharge patient home - will arrange with case management for post op care as needed - follow up in OPD in 7-10 days Post-op pain 10/27/2012 12/26/2015 Overview: currently well controlled with [employer]. will start PO pain meds today 10/27. tolerating percocet, pain relatively well controlled. Hodgkin's disease with nodular sclerosis 013 12/26/2015 Overview: Oncology history (per Dr. 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 Hodgkin's disease, unspecified 02/05/2012 0 05/11/2014 Vaginal bleeding 12/26/2015 Overview: --likely from thrombocytopenia. No menses in prior 8 months. Scant amount reported on 03/29 and 03/30, now resolved --monitor bleeding by counting pads --should f/u with her [facility] provider after BMT Premature menopause 12/26/2015 Postmenopausal atrophic vaginitis 12/26/2015 Dyspareunia 12/26/2015 documented as of this encounter (statuses as of 11/15/2021) [facility] History of Past illness Narrative* Problem Noted Date Resolved Date Menorrhagia with regular cycle 03/15/2017 1 03/03/2017 Overview: Added automatically from request for surgery [id number] History of pulmonary embolism 04/25/2016 Neoplastic (malignant) [...] FOLLOW-UP 10/27/20122015 Overview: 32 yo female from [place]. Family involved with care, at bedside. plan to discharge patient home - will arrange with case management for post op care as needed - follow up in OPD in 7-10 days Post-op pain 10/27/2012 12/26/2015 Overview: currently well controlled with [employer]. will start PO pain meds today 10/27. tolerating percocet, pain relatively well controlled. Hodgkin's disease with nodular sclerosis 013 12/26/2015 Overview: Oncology history (per Dr. 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 Hodgkin's disease, unspecified 02/05/2012 0 05/11/2014 Vaginal bleeding 12/26/2015 Overview: --likely from thrombocytopenia. No menses in prior 8 months. Scant amount reported on 03/29 and 03/30, now resolved --monitor bleeding by counting pads --should f/u with her [facility] provider after BMT Premature menopause 12/26/2015 Postmenopausal atrophic vaginitis 12/26/2015 Dyspareunia 12/26/2015 documented as of this encounter (statuses as of 11/15/2021) [facility] History of Past illness Narrative* Problem Noted Date Resolved Date Menorrhagia with regular cycle 03/15/2017 1 03/03/2017 Overview: Added automatically from request for surgery [id number] History of pulmonary embolism 04/25/2016 Neoplastic (malignant) [...] FOLLOW-UP 10/27/20122015 Overview: 32 yo female from [place]. Family involved with care, at bedside. plan to discharge patient home - will arrange with case management for post op care as needed - follow up in OPD in 7-10 days Post-op pain 10/27/2012 12/26/2015 Overview: currently well controlled with [employer]. will start PO pain meds today 10/27. tolerating percocet, pain relatively well controlled. Hodgkin's disease with nodular sclerosis 013 12/26/2015 Overview: Oncology history (per Dr. 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 Hodgkin's disease, unspecified 02/05/2012 0 05/11/2014 Vaginal bleeding 12/26/2015 Overview: --likely from thrombocytopenia. No menses in prior 8 months. Scant amount reported on 03/29 and 03/30, now resolved --monitor bleeding by counting pads --should f/u with her [facility] provider after BMT Premature menopause 12/26/2015 Postmenopausal atrophic vaginitis 12/26/2015 Dyspareunia 12/26/2015 documented as of this encounter (statuses as of 12/04/2021) [facility] History of Past illness Narrative* Problem Noted Date Resolved Date Menorrhagia with regular cycle 03/15/2017 1 03/03/2017 Overview: Added automatically from request for surgery [id number] History of pulmonary embolism 04/25/2016 Neoplastic (malignant) [...] FOLLOW-UP 10/27/20122015 Overview: 32 yo female from [place]. Family involved with care, at bedside. plan to discharge patient home - will arrange with case management for post op care as needed - follow up in OPD in 7-10 days Post-op pain 10/27/2012 12/26/2015 Overview: currently well controlled with [employer]. will start PO pain meds today 10/27. tolerating percocet, pain relatively well controlled. Hodgkin's disease with nodular sclerosis 013 12/26/2015 Overview: Oncology history (per Dr. 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 Hodgkin's disease, unspecified 02/05/2012 0 05/11/2014 Vaginal bleeding 12/26/2015 Overview: --likely from thrombocytopenia. No menses in prior 8 months. Scant amount reported on 03/29 and 03/30, now resolved --monitor bleeding by counting pads --should f/u with her [facility] provider after BMT Premature menopause 12/26/2015 Postmenopausal atrophic vaginitis 12/26/2015 Dyspareunia 12/26/2015 documented as of this encounter (statuses as of 12/05/2021) [facility] History of Past illness Narrative* Problem Noted Date Resolved Date Menorrhagia with regular cycle 03/15/2017 1 03/03/2017 Overview: Added automatically from request for surgery [id number] History of pulmonary embolism 04/25/2016 Neoplastic (malignant) [...] FOLLOW-UP 10/27/20122015 Overview: 32 yo female from [place]. Family involved with care, at bedside. plan to discharge patient home - will arrange with case management for post op care as needed - follow up in OPD in 7-10 days Post-op pain 10/27/2012 12/26/2015 Overview: currently well controlled with [employer]. will start PO pain meds today 10/27. tolerating percocet, pain relatively well controlled. Hodgkin's disease with nodular sclerosis 013 12/26/2015 Overview: Oncology history (per Dr. 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 Hodgkin's disease, unspecified 02/05/2012 0 05/11/2014 Vaginal bleeding 12/26/2015 Overview: --likely from thrombocytopenia. No menses in prior 8 months. Scant amount reported on 03/29 and 03/30, now resolved --monitor bleeding by counting pads --should f/u with her [facility] provider after BMT Premature menopause 12/26/2015 Postmenopausal atrophic vaginitis 12/26/2015 Dyspareunia 12/26/2015 documented as of this encounter (statuses as of 12/06/2021) [facility] History of Past illness Narrative* Problem Noted Date Resolved Date Menorrhagia with regular cycle 03/15/2017 1 03/03/2017 Overview: Added automatically from request for surgery [id number] History of pulmonary embolism 04/25/2016 Neoplastic (malignant) [...] FOLLOW-UP 10/27/20122015 Overview: 32 yo female from [place]. Family involved with care, at bedside. plan to discharge patient home - will arrange with case management for post op care as needed - follow up in OPD in 7-10 days Post-op pain 10/27/2012 12/26/2015 Overview: currently well controlled with [employer]. will start PO pain meds today 10/27. tolerating percocet, pain relatively well controlled. Hodgkin's disease with nodular sclerosis 013 12/26/2015 Overview: Oncology history (per Dr. 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 Hodgkin's disease, unspecified 02/05/2012 0 05/11/2014 Vaginal bleeding 12/26/2015 Overview: --likely from thrombocytopenia. No menses in prior 8 months. Scant amount reported on 03/29 and 03/30, now resolved --monitor bleeding by counting pads --should f/u with her [facility] provider after BMT Premature menopause 12/26/2015 Postmenopausal atrophic vaginitis 12/26/2015 Dyspareunia 12/26/2015 documented as of this encounter (statuses as of 12/07/2021) [facility] History of Past illness Narrative* Problem Noted Date Resolved Date Menorrhagia with regular cycle 03/15/2017 1 03/03/2017 Overview: Added automatically from request for surgery [id number] History of pulmonary embolism 04/25/2016 Neoplastic (malignant) [...] FOLLOW-UP 10/27/20122015 Overview: 32 yo female from [place]. Family involved with care, at bedside. plan to discharge patient home - will arrange with case management for post op care as needed - follow up in OPD in 7-10 days Post-op pain 10/27/2012 12/26/2015 Overview: currently well controlled with [employer]. will start PO pain meds today 10/27. tolerating percocet, pain relatively well controlled. Hodgkin's disease with nodular sclerosis 013 12/26/2015 Overview: Oncology history (per Dr. 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 Hodgkin's disease, unspecified 02/05/2012 0 05/11/2014 Vaginal bleeding 12/26/2015 Overview: --likely from thrombocytopenia. No menses in prior 8 months. Scant amount reported on 03/29 and 03/30, now resolved --monitor bleeding by counting pads --should f/u with her [facility] provider after BMT Premature menopause 12/26/2015 Postmenopausal atrophic vaginitis 12/26/2015 Dyspareunia 12/26/2015 documented as of this encounter (statuses as of 12/12/2021) [facility] History of Past illness Narrative* Problem Noted Date Resolved Date Menorrhagia with regular cycle 03/15/2017 1 03/03/2017 Overview: Added automatically from request for surgery [id number] History of pulmonary embolism 04/25/2016 Neoplastic (malignant) [...] FOLLOW-UP 10/27/20122015 Overview: 32 yo female from [place]. Family involved with care, at bedside. plan to discharge patient home - will arrange with case management for post op care as needed - follow up in OPD in 7-10 days Post-op pain 10/27/2012 12/26/2015 Overview: currently well controlled with [employer]. will start PO pain meds today 10/27. tolerating percocet, pain relatively well controlled. Hodgkin's disease with nodular sclerosis 013 12/26/2015 Overview: Oncology history (per Dr. 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 Hodgkin's disease, unspecified 02/05/2012 0 05/11/2014 Vaginal bleeding 12/26/2015 Overview: --likely from thrombocytopenia. No menses in prior 8 months. Scant amount reported on 03/29 and 03/30, now resolved --monitor bleeding by counting pads --should f/u with her [facility] provider after BMT Premature menopause 12/26/2015 Postmenopausal atrophic vaginitis 12/26/2015 Dyspareunia 12/26/2015 documented as of this encounter (statuses as of 12/18/2021) [facility] History of Past illness Narrative* Problem Noted Date Resolved Date Menorrhagia with regular cycle 03/15/2017 1 03/03/2017 Overview: Added automatically from request for surgery [id number] History of pulmonary embolism 04/25/2016 Neoplastic (malignant) [...] FOLLOW-UP 10/27/20122015 Overview: 32 yo female from [place]. Family involved with care, at bedside. plan to discharge patient home - will arrange with case management for post op care as needed - follow up in OPD in 7-10 days Post-op pain 10/27/2012 12/26/2015 Overview: currently well controlled with [employer]. will start PO pain meds today 10/27. tolerating percocet, pain relatively well controlled. Hodgkin's disease with nodular sclerosis 013 12/26/2015 Overview: Oncology history (per Dr. 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 Hodgkin's disease, unspecified 02/05/2012 0 05/11/2014 Vaginal bleeding 12/26/2015 Overview: --likely from thrombocytopenia. No menses in prior 8 months. Scant amount reported on 03/29 and 03/30, now resolved --monitor bleeding by counting pads --should f/u with her [facility] [facility] provider after BMT Premature menopause 12/26/2015 Postmenopausal atrophic vaginitis 12/26/2015 Dyspareunia 12/26/2015 documented as of this encounter (statuses as of 12/19/2021) [facility] History of Past illness Narrative* Problem Noted Date Resolved Date Menorrhagia with regular cycle 03/15/2017 1 03/03/2017 Overview: Added automatically from request for surgery [id number] History of pulmonary embolism 04/25/2016 Neoplastic (malignant) [...] FOLLOW-UP 10/27/20122015 Overview: 32 yo female from [place]. Family involved with care, at bedside. plan to discharge patient home - will arrange with case management for post op care as needed - follow up in OPD in 7-10 days Post-op pain 10/27/2012 12/26/2015 Overview: currently well controlled with [employer]. will start PO pain meds today 10/27. tolerating percocet, pain relatively well controlled. Hodgkin's disease with nodular sclerosis 013 12/26/2015 Overview: Oncology history (per Dr. 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 Hodgkin's disease, unspecified 02/05/2012 0 05/11/2014 Vaginal bleeding 12/26/2015 Overview: --likely from thrombocytopenia. No menses in prior 8 months. Scant amount reported on 03/29 and 03/30, now resolved --monitor bleeding by counting pads --should f/u with her [facility] [facility] provider after BMT Premature menopause 12/26/2015 Postmenopausal atrophic vaginitis 12/26/2015 Dyspareunia 12/26/2015 documented as of this encounter (statuses as of 12/27/2021) [facility] of Past illness Narrative* Problem Noted Date Resolved Date Menorrhagia with regular cycle 03/15/2017 1 03/03/2017 Overview: Added automatically from request for surgery [id number] History of pulmonary embolism 04/25/2016 Neoplastic (malignant) [...] FOLLOW-UP 10/27/20122015 Overview: 32 yo female from [place]. Family involved with care, at bedside. plan to discharge patient home - will arrange with case management for post op care as needed - follow up in OPD in 7-10 days Post-op pain 10/27/2012 12/26/2015 Overview: currently well controlled with [employer]. will start PO pain meds today 10/27. tolerating percocet, pain relatively well controlled. Hodgkin's disease with nodular sclerosis 013 12/26/2015 Overview: Oncology history (per Dr. 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 Hodgkin's disease, unspecified 02/05/2012 0 05/11/2014 Vaginal bleeding 12/26/2015 Overview: --likely from thrombocytopenia. No menses in prior 8 months. Scant amount reported on 03/29 and 03/30, now resolved --monitor bleeding by counting pads --should f/u with her [employer] provider after BMT Premature menopause 12/26/2015 Postmenopausal atrophic vaginitis 12/26/2015 Dyspareunia 12/26/2015 documented as of this encounter (statuses as of 12/31/2021) [facility] of Past illness Narrative* Problem Noted Date Resolved Date Menorrhagia with regular cycle 03/15/2017 1 03/03/2017 Overview: Added automatically from request for surgery [id number] History of pulmonary embolism 04/25/2016 Neoplastic (malignant) [...] FOLLOW-UP 10/27/20122015 Overview: 32 yo female from [place]. Family involved with care, at bedside. plan to discharge patient home - will arrange with case management for post op care as needed - follow up in OPD in 7-10 days Post-op pain 10/27/2012 12/26/2015 Overview: currently well controlled with [employer]. will start PO pain meds today 10/27. tolerating percocet, pain relatively well controlled. Hodgkin's disease with nodular sclerosis 013 12/26/2015 Overview: Oncology history (per Dr. 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 Hodgkin's disease, unspecified 02/05/2012 0 05/11/2014 Vaginal bleeding 12/26/2015 Overview: --likely from thrombocytopenia. No menses in prior 8 months. Scant amount reported on 03/29 and 03/30, now resolved --monitor bleeding by counting pads --should f/u with her [employer] provider after BMT Premature menopause 12/26/2015 Postmenopausal atrophic vaginitis 12/26/2015 Dyspareunia 12/26/2015 documented as of this encounter (statuses as of 01/08/2022) [facility] of Past illness Narrative* Problem Noted Date Resolved Date Menorrhagia with regular cycle 03/15/2017 1 03/03/2017 Overview: Added automatically from request for surgery [id number] History of pulmonary embolism 04/25/2016 Neoplastic (malignant) [...] FOLLOW-UP 10/27/20122015 Overview: 32 yo female from [place]. Family involved with care, at bedside. plan to discharge patient home - will arrange with case management for post op care as needed - follow up in OPD in 7-10 days Post-op pain 10/27/2012 12/26/2015 Overview: currently well controlled with [employer]. will start PO pain meds today 10/27. tolerating percocet, pain relatively well controlled. Hodgkin's disease with nodular sclerosis 013 12/26/2015 Overview: Oncology history (per Dr. 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 Hodgkin's disease, unspecified 02/05/2012 0 05/11/2014 Vaginal bleeding 12/26/2015 Overview: --likely from thrombocytopenia. No menses in prior 8 months. Scant amount reported on 03/29 and 03/30, now resolved --monitor bleeding by counting pads --should f/u with her [employer] provider after BMT Premature menopause 12/26/2015 Postmenopausal atrophic vaginitis 12/26/2015 Dyspareunia 12/26/2015 documented as of this encounter (statuses as of 01/16/2022) [facility] Past illness Narrative* Problem Noted Date Resolved Date Menorrhagia with regular cycle 03/15/2017 1 03/03/2017 Overview: Added automatically from request for surgery [id number] History of pulmonary embolism 04/25/2016 Neoplastic (malignant) [...] FOLLOW-UP 10/27/20122015 Overview: 32 yo female from [place]. Family involved with care, at bedside. plan to discharge patient home - will arrange with case management for post op care as needed - follow up in OPD in 7-10 days Post-op pain 10/27/2012 12/26/2015 Overview: currently well controlled with [employer]. will start PO pain meds today 10/27. tolerating percocet, pain relatively well controlled. Hodgkin's disease with nodular sclerosis 013 12/26/2015 Overview: Oncology history (per Dr. 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 Hodgkin's disease, unspecified 02/05/2012 0 05/11/2014 Vaginal bleeding 12/26/2015 Overview: --likely from thrombocytopenia. No menses in prior 8 months. Scant amount reported on 03/29 and 03/30, now resolved --monitor bleeding by counting pads --should f/u with her [facility] provider after BMT Premature menopause 12/26/2015 Postmenopausal atrophic vaginitis 12/26/2015 Dyspareunia 12/26/2015 documented as of this encounter (statuses as of 01/16/2022) [facility] History of Past illness Narrative* Problem Noted Date Resolved Date Menorrhagia with regular cycle 03/15/2017 1 03/03/2017 Overview: Added automatically from request for surgery [id number] History of pulmonary embolism 04/25/2016 Neoplastic (malignant) [...] FOLLOW-UP 10/27/20122015 Overview: 32 yo female from [place], [place]. Family involved with care, at bedside. plan to discharge patient home - will arrange with case management for post op care as needed - follow up in OPD in 7-10 days Post-op pain 10/27/2012 12/26/2015 Overview: currently well controlled with [employer]. will start PO pain meds today 10/27. tolerating percocet, pain relatively well controlled. Hodgkin's disease with nodular sclerosis 013 12/26/2015 Overview: Oncology history (per Dr. 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 Hodgkin's disease, unspecified 02/05/2012 0 05/11/2014 Vaginal bleeding 12/26/2015 Overview: --likely from thrombocytopenia. No menses in prior 8 months. Scant amount reported on 03/29 and 03/30, now resolved --monitor bleeding by counting pads --should f/u with her [facility] provider after BMT Premature menopause 12/26/2015 Postmenopausal atrophic vaginitis 12/26/2015 Dyspareunia 12/26/2015 documented as of this encounter (statuses as of 01/17/2022) [facility] History of Past illness Narrative* Problem Noted Date Resolved Date Menorrhagia with regular cycle 03/15/2017 1 03/03/2017 Overview: Added automatically from request for surgery [id number] History of pulmonary embolism 04/25/2016 Neoplastic (malignant) [...] FOLLOW-UP 10/27/20122015 Overview: 32 yo female from [place], [place]. Family involved with care, at bedside. plan to discharge patient home - will arrange with case management for post op care as needed - follow up in OPD in 7-10 days Post-op pain 10/27/2012 12/26/2015 Overview: currently well controlled with [employer]. will start PO pain meds today 10/27. tolerating percocet, pain relatively well controlled. Hodgkin's disease with nodular sclerosis 013 12/26/2015 Overview: Oncology history (per Dr. 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 Hodgkin's disease, unspecified 02/05/2012 0 05/11/2014 Vaginal bleeding 12/26/2015 Overview: --likely from thrombocytopenia. No menses in prior 8 months. Scant amount reported on 03/29 and 03/30, now resolved --monitor bleeding by counting pads --should f/u with her [facility] provider after BMT Premature menopause 12/26/2015 Postmenopausal atrophic vaginitis 12/26/2015 Dyspareunia 12/26/2015 documented as of this encounter (statuses as of 01/18/2022) [facility] History of Past illness Narrative* Problem Noted Date Resolved Date Menorrhagia with regular cycle 03/15/2017 1 03/03/2017 Overview: Added automatically from request for surgery [id number] History of pulmonary embolism 04/25/2016 Neoplastic (malignant) [...] FOLLOW-UP 10/27/20122015 Overview: 32 yo female from [place]. Family involved with care, at bedside. plan to discharge patient home - will arrange with case management for post op care as needed - follow up in OPD in 7-10 days Post-op pain 10/27/2012 12/26/2015 Overview: currently well controlled with [employer]. will start PO pain meds today 10/27. tolerating percocet, pain relatively well controlled. Hodgkin's disease with nodular sclerosis 013 12/26/2015 Overview: Oncology history (per Dr. 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 Hodgkin's disease, unspecified 02/05/2012 0 05/11/2014 Vaginal bleeding 12/26/2015 Overview: --likely from thrombocytopenia. No menses in prior 8 months. Scant amount reported on 03/29 and 03/30, now resolved --monitor bleeding by counting pads --should f/u with her [facility] provider after BMT Premature menopause 12/26/2015 Postmenopausal atrophic vaginitis 12/26/2015 Dyspareunia 12/26/2015 documented as of this encounter (statuses as of 01/20/2022) [facility] History of Past illness Narrative* Problem Noted Date Resolved Date Menorrhagia with regular cycle 03/15/2017 1 03/03/2017 Overview: Added automatically from request for surgery [id number] History of pulmonary embolism 04/25/2016 Neoplastic (malignant) [...] FOLLOW-UP 10/27/20122015 Overview: 32 yo female from [place]. Family involved with care, at bedside. plan to discharge patient home - will arrange with case management for post op care as needed - follow up in OPD in 7-10 days Post-op pain 10/27/2012 12/26/2015 Overview: currently well controlled with [employer]. will start PO pain meds today 10/27. tolerating percocet, pain relatively well controlled. Hodgkin's disease with nodular sclerosis 013 12/26/2015 Overview: Oncology history (per Dr. 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 Hodgkin's disease, unspecified 02/05/2012 0 05/11/2014 Vaginal bleeding 12/26/2015 Overview: --likely from thrombocytopenia. No menses in prior 8 months. Scant amount reported on 03/29 and 03/30, now resolved --monitor bleeding by counting pads --should f/u with her [facility] provider after BMT Premature menopause 12/26/2015 Postmenopausal atrophic vaginitis 12/26/2015 Dyspareunia 12/26/2015 documented as of this encounter (statuses as of 01/22/2022) [facility] History of Past illness Narrative* Problem Noted Date Resolved Date Menorrhagia with regular cycle 03/15/2017 1 03/03/2017 Overview: Added automatically from request for surgery [id number] History of pulmonary embolism 04/25/2016 Neoplastic (malignant) [...] FOLLOW-UP 10/27/20122015 Overview: 32 yo female from [place]. Family involved with care, at bedside. plan to discharge patient home - will arrange with case management for post op care as needed - follow up in OPD in 7-10 days Post-op pain 10/27/2012 12/26/2015 Overview: currently well controlled with [employer]. will start PO pain meds today 10/27. tolerating percocet, pain relatively well controlled. Hodgkin's disease with nodular sclerosis 013 12/26/2015 Overview: Oncology history (per Dr. 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 Hodgkin's disease, unspecified 02/05/2012 0 05/11/2014 Vaginal bleeding 12/26/2015 Overview: --likely from thrombocytopenia. No menses in prior 8 months. Scant amount reported on 03/29 and 03/30, now resolved --monitor bleeding by counting pads --should f/u with her [facility] provider after BMT Premature menopause 12/26/2015 Postmenopausal atrophic vaginitis 12/26/2015 Dyspareunia 12/26/2015 documented as of this encounter (statuses as of 01/25/2022) [facility] History of Past illness Narrative* Problem Noted Date Resolved Date Menorrhagia with regular cycle 03/15/2017 1 03/03/2017 Overview: Added automatically from request for surgery [id number] History of pulmonary embolism 04/25/2016 Neoplastic (malignant) [...] FOLLOW-UP 10/27/20122015 Overview: 32 yo female from [place]. Family involved with care, at bedside. plan to discharge patient home - will arrange with case management for post op care as needed - follow up in OPD in 7-10 days Post-op pain 10/27/2012 12/26/2015 Overview: currently well controlled with [employer]. will start PO pain meds today 10/27. tolerating percocet, pain relatively well controlled. Hodgkin's disease with nodular sclerosis 013 12/26/2015 Overview: Oncology history (per Dr. 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 Hodgkin's disease, unspecified 02/05/2012 0 05/11/2014 Vaginal bleeding 12/26/2015 Overview: --likely from thrombocytopenia. No menses in prior 8 months. Scant amount reported on 03/29 and 03/30, now resolved --monitor bleeding by counting pads --should f/u with her [facility] provider after BMT Premature menopause 12/26/2015 Postmenopausal atrophic vaginitis 12/26/2015 Dyspareunia 12/26/2015 documented as of this encounter (statuses as of 02/11/2022) [facility] History of Past illness Narrative* Problem Noted Date Resolved Date Menorrhagia with regular cycle 03/15/2017 1 03/03/2017 Overview: Added automatically from request for surgery [id number] History of pulmonary embolism 04/25/2016 Neoplastic (malignant) [...] FOLLOW-UP 10/27/20122015 Overview: 32 yo female from [place]. Family involved with care, at bedside. plan to discharge patient home - will arrange with case management for post op care as needed - follow up in OPD in 7-10 days Post-op pain 10/27/2012 12/26/2015 Overview: currently well controlled with [employer]. will start PO pain meds today 10/27. tolerating percocet, pain relatively well controlled. Hodgkin's disease with nodular sclerosis 013 12/26/2015 Overview: Oncology history (per Dr. 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 Hodgkin's disease, unspecified 02/05/2012 0 05/11/2014 Vaginal bleeding 12/26/2015 Overview: --likely from thrombocytopenia. No menses in prior 8 months. Scant amount reported on 03/29 and 03/30, now resolved --monitor bleeding by counting pads --should f/u with her [facility] provider after BMT Premature menopause 12/26/2015 Postmenopausal atrophic vaginitis 12/26/2015 Dyspareunia 12/26/2015 documented as of this encounter (statuses as of 02/21/2022) [facility] History of Past illness Narrative* Problem Noted Date Resolved Date Menorrhagia with regular cycle 03/15/2017 1 03/03/2017 Overview: Added automatically from request for surgery [id number] History of pulmonary embolism 04/25/2016 Neoplastic (malignant) [...] FOLLOW-UP 10/27/20122015 Overview: 32 yo female from [place]. Family involved with care, at bedside. plan to discharge patient home - will arrange with case management for post op care as needed - follow up in OPD in 7-10 days Post-op pain 10/27/2012 12/26/2015 Overview: currently well controlled with [employer]. will start PO pain meds today 10/27. tolerating percocet, pain relatively well controlled. Hodgkin's disease with nodular sclerosis 013 12/26/2015 Overview: Oncology history (per Dr. 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 Hodgkin's disease, unspecified 02/05/2012 0 05/11/2014 Vaginal bleeding 12/26/2015 Overview: --likely from thrombocytopenia. No menses in prior 8 months. Scant amount reported on 03/29 and 03/30, now resolved --monitor bleeding by counting pads --should f/u with her [facility] provider after BMT Premature menopause 12/26/2015 Postmenopausal atrophic vaginitis 12/26/2015 Dyspareunia 12/26/2015 documented as of this encounter (statuses as of 03/06/2022) [facility] History of Past illness Narrative* Problem Noted Date Resolved Date Menorrhagia with regular cycle 03/15/2017 1 03/03/2017 Overview: Added automatically from request for surgery [id number] History of pulmonary embolism 04/25/2016 Neoplastic (malignant) [...] FOLLOW-UP 10/27/20122015 Overview: 32 yo female from [place]. Family involved with care, at bedside. plan to discharge patient home - will arrange with case management for post op care as needed - follow up in OPD in 7-10 days Post-op pain 10/27/2012 12/26/2015 Overview: currently well controlled with [employer]. will start PO pain meds today 10/27. tolerating percocet, pain relatively well controlled. Hodgkin's disease with nodular sclerosis 013 12/26/2015 Overview: Oncology history (per Dr. 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 Hodgkin's disease, unspecified 02/05/2012 0 05/11/2014 Vaginal bleeding 12/26/2015 Overview: --likely from thrombocytopenia. No menses in prior 8 months. Scant amount reported on 03/29 and 03/30, now resolved --monitor bleeding by counting pads --should f/u with her [facility] provider after BMT Premature menopause 12/26/2015 Postmenopausal atrophic vaginitis 12/26/2015 Dyspareunia 12/26/2015 documented as of this encounter (statuses as of 03/07/2022) [facility] History of Past illness Narrative* Problem Noted Date Resolved Date Menorrhagia with regular cycle 03/15/2017 1 03/03/2017 Overview: Added automatically from request for surgery [id number] History of pulmonary embolism 04/25/2016 Neoplastic (malignant) [...] FOLLOW-UP 10/27/20122015 Overview: 32 yo female from [place]. Family involved with care, at bedside. plan to discharge patient home - will arrange with case management for post op care as needed - follow up in OPD in 7-10 days Post-op pain 10/27/2012 12/26/2015 Overview: currently well controlled with [employer]. will start PO pain meds today 10/27. tolerating percocet, pain relatively well controlled. Hodgkin's disease with nodular sclerosis 013 12/26/2015 Overview: Oncology history (per Dr. 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 Hodgkin's disease, unspecified 02/05/2012 0 05/11/2014 Vaginal bleeding 12/26/2015 Overview: --likely from thrombocytopenia. No menses in prior 8 months. Scant amount reported on 03/29 and 03/30, now resolved --monitor bleeding by counting pads --should f/u with her [facility] provider after BMT Premature menopause 12/26/2015 Postmenopausal atrophic vaginitis 12/26/2015 Dyspareunia 12/26/2015 documented as of this encounter (statuses as of 03/07/2022) [facility] of Past illness Narrative* Problem Noted Date Resolved Date Menorrhagia with regular cycle 03/15/2017 1 03/03/2017 Overview: Added automatically from request for surgery [id number] History of pulmonary embolism 04/25/2016 Neoplastic (malignant) [...] FOLLOW-UP 10/27/20122015 Overview: 32 yo female from [place]. Family involved with care, at bedside. plan to discharge patient home - will arrange with case management for post op care as needed - follow up in OPD in 7-10 days Post-op pain 10/27/2012 12/26/2015 Overview: currently well controlled with [employer]. will start PO pain meds today 10/27. tolerating percocet, pain relatively well controlled. Hodgkin's disease with nodular sclerosis 013 12/26/2015 Overview: Oncology history (per Dr. 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 Hodgkin's disease, unspecified 02/05/2012 0 05/11/2014 Vaginal bleeding 12/26/2015 Overview: --likely from thrombocytopenia. No menses in prior 8 months. Scant amount reported on 03/29 and 03/30, now resolved --monitor bleeding by counting pads --should f/u with her [facility] [facility] provider after BMT Premature menopause 12/26/2015 Postmenopausal atrophic vaginitis 12/26/2015 Dyspareunia 12/26/2015 documented as of this encounter (statuses as of 03/15/2022) [facility] Past illness Narrative* Problem Noted Date Resolved Date Menorrhagia with regular cycle 03/15/2017 1 03/03/2017 Overview: Added automatically from request for surgery [id number] History of pulmonary embolism 04/25/2016 Neoplastic (malignant) [...] FOLLOW-UP 10/27/20122015 Overview: 32 yo female from [place]. Family involved with care, at bedside. plan to discharge patient home - will arrange with case management for post op care as needed - follow up in OPD in 7-10 days Post-op pain 10/27/2012 12/26/2015 Overview: currently well controlled with [employer]. will start PO pain meds today 10/27. tolerating percocet, pain relatively well controlled. Hodgkin's disease with nodular sclerosis 013 12/26/2015 Overview: Oncology history (per Dr. 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 Hodgkin's disease, unspecified 02/05/2012 0 05/11/2014 Vaginal bleeding 12/26/2015 Overview: --likely from thrombocytopenia. No menses in prior 8 months. Scant amount reported on 03/29 and 03/30, now resolved --monitor bleeding by counting pads --should f/u with her [employer] provider after BMT Premature menopause 12/26/2015 Postmenopausal atrophic vaginitis 12/26/2015 Dyspareunia 12/26/2015 documented as of this encounter (statuses as of 03/15/2022) [facility] Past [facility] Narrative* Problem Noted Date Resolved Date Menorrhagia with regular cycle 03/15/2017 1 03/03/2017 Overview: Added automatically from request for surgery [id number] History of pulmonary embolism 04/25/2016 Neoplastic (malignant) [...] FOLLOW-UP 10/27/20122015 Overview: 32 yo female from [place]. Family involved with care, at bedside. plan to discharge patient home - will arrange with case management for post op care as needed - follow up in OPD in 7-10 days Post-op pain 10/27/2012 12/26/2015 Overview: currently well controlled with [employer]. will start PO pain meds today 10/27. tolerating percocet, pain relatively well controlled. Hodgkin's disease with nodular sclerosis 013 12/26/2015 Overview: Oncology history (per Dr. 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 Hodgkin's disease, unspecified 02/05/2012 0 05/11/2014 Vaginal bleeding 12/26/2015 Overview: --likely from thrombocytopenia. No menses in prior 8 months. Scant amount reported on 03/29 and 03/30, now resolved --monitor bleeding by counting pads --should f/u with her [facility] [facility] provider after BMT Premature menopause 12/26/2015 Postmenopausal atrophic vaginitis 12/26/2015 Dyspareunia 12/26/2015 documented as of this encounter (statuses as of 03/19/2022) [facility] of Past illness Narrative* Problem Noted Date Resolved Date Menorrhagia with regular cycle 03/15/2017 1 03/03/2017 Overview: Added automatically from request for surgery [id number] History of pulmonary embolism 04/25/2016 Neoplastic (malignant) [...] FOLLOW-UP 10/27/20122015 Overview: 32 yo female from [place]. Family involved with care, at bedside. plan to discharge patient home - will arrange with case management for post op care as needed - follow up in OPD in 7-10 days Post-op pain 10/27/2012 12/26/2015 Overview: currently well controlled with [employer]. will start PO pain meds today 10/27. tolerating percocet, pain relatively well controlled. Hodgkin's disease with nodular sclerosis 013 12/26/2015 Overview: Oncology history (per Dr. 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 Hodgkin's disease, unspecified 02/05/2012 0 05/11/2014 Vaginal bleeding 12/26/2015 Overview: --likely from thrombocytopenia. No menses in prior 8 months. Scant amount reported on 03/29 and 03/30, now resolved --monitor bleeding by counting pads --should f/u with her [facility] [facility] provider after BMT Premature menopause 12/26/2015 Postmenopausal atrophic vaginitis 12/26/2015 Dyspareunia 12/26/2015 documented as of this encounter (statuses as of 03/22/2022) [facility] Past illness Narrative* Problem Noted Date Resolved Date Menorrhagia with regular cycle 03/15/2017 1 03/03/2017 Overview: Added automatically from request for surgery [id number] History of pulmonary embolism 04/25/2016 Neoplastic (malignant) [...] FOLLOW-UP 10/27/20122015 Overview: 32 yo female from [place]. Family involved with care, at bedside. plan to discharge patient home - will arrange with case management for post op care as needed - follow up in OPD in 7-10 days Post-op pain 10/27/2012 12/26/2015 Overview: currently well controlled with [employer]. will start PO pain meds today 10/27. tolerating percocet, pain relatively well controlled. Hodgkin's disease with nodular sclerosis 013 12/26/2015 Overview: Oncology history (per Dr. 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 Hodgkin's disease, unspecified 02/05/2012 0 05/11/2014 Vaginal bleeding 12/26/2015 Overview: --likely from thrombocytopenia. No menses in prior 8 months. Scant amount reported on 03/29 and 03/30, now resolved --monitor bleeding by counting pads --should f/u with her [employer] [facility] provider after BMT Premature menopause 12/26/2015 Postmenopausal atrophic vaginitis 12/26/2015 Dyspareunia 12/26/2015 documented as of this encounter (statuses as of 03/23/2022) [facility] Past illness Narrative* Problem Noted Date Resolved Date Menorrhagia with regular cycle 03/15/2017 1 03/03/2017 Overview: Added automatically from request for surgery [id number] History of pulmonary embolism 04/25/2016 Neoplastic (malignant) [...] FOLLOW-UP 10/27/20122015 Overview: 32 yo female from [place], [place]. Family involved with care, at bedside. plan to discharge patient home - will arrange with case management for post op care as needed - follow up in OPD in 7-10 days Post-op pain 10/27/2012 12/26/2015 Overview: currently well controlled with [employer]. will start PO pain meds today 10/27. tolerating percocet, pain relatively well controlled. Hodgkin's disease with nodular sclerosis 013 12/26/2015 Overview: Oncology history (per Dr. 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 Hodgkin's disease, unspecified 02/05/2012 0 05/11/2014 Vaginal bleeding 12/26/2015 Overview: --likely from thrombocytopenia. No menses in prior 8 months. Scant amount reported on 03/29 and 03/30, now resolved --monitor bleeding by counting pads --should f/u with her [facility] provider after BMT Premature menopause 12/26/2015 Postmenopausal atrophic vaginitis 12/26/2015 Dyspareunia 12/26/2015 documented as of this encounter (statuses as of 03/24/2022) [facility] History of Past illness Narrative* Problem Noted Date Resolved Date Menorrhagia with regular cycle 03/15/2017 1 03/03/2017 Overview: Added automatically from request for surgery [id number] History of pulmonary embolism 04/25/2016 Neoplastic (malignant) [...] FOLLOW-UP 10/27/20122015 Overview: 32 yo female from [place], [place]. Family involved with care, at bedside. plan to discharge patient home - will arrange with case management for post op care as needed - follow up in OPD in 7-10 days Post-op pain 10/27/2012 12/26/2015 Overview: currently well controlled with [employer]. will start PO pain meds today 10/27. tolerating percocet, pain relatively well controlled. Hodgkin's disease with nodular sclerosis 013 12/26/2015 Overview: Oncology history (per Dr. 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 Hodgkin's disease, unspecified 02/05/2012 0 05/11/2014 Vaginal bleeding 12/26/2015 Overview: --likely from thrombocytopenia. No menses in prior 8 months. Scant amount reported on 03/29 and 03/30, now resolved --monitor bleeding by counting pads --should f/u with her [facility] provider after BMT Premature menopause 12/26/2015 Postmenopausal atrophic vaginitis 12/26/2015 Dyspareunia 12/26/2015 documented as of this encounter (statuses as of 03/26/2022) [facility] History of Past illness Narrative* Problem Noted Date Resolved Date Menorrhagia with regular cycle 03/15/2017 1 03/03/2017 Overview: Added automatically from request for surgery [id number] History of pulmonary embolism 04/25/2016 Neoplastic (malignant) [...] FOLLOW-UP 10/27/20122015 Overview: 32 yo female from [place]. Family involved with care, at bedside. plan to discharge patient home - will arrange with case management for post op care as needed - follow up in OPD in 7-10 days Post-op pain 10/27/2012 12/26/2015 Overview: currently well controlled with [employer]. will start PO pain meds today 10/27. tolerating percocet, pain relatively well controlled. Hodgkin's disease with nodular sclerosis 013 12/26/2015 Overview: Oncology history (per Dr. 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 Hodgkin's disease, unspecified 02/05/2012 0 05/11/2014 Vaginal bleeding 12/26/2015 Overview: --likely from thrombocytopenia. No menses in prior 8 months. Scant amount reported on 03/29 and 03/30, now resolved --monitor bleeding by counting pads --should f/u with her [facility] provider after BMT Premature menopause 12/26/2015 Postmenopausal atrophic vaginitis 12/26/2015 Dyspareunia 12/26/2015 documented as of this encounter (statuses as of 03/30/2022) [facility] History of Past illness Narrative* Problem Noted Date Resolved Date Menorrhagia with regular cycle 03/15/2017 1 03/03/2017 Overview: Added automatically from request for surgery [id number] History of pulmonary embolism 04/25/2016 Neoplastic (malignant) [...] FOLLOW-UP 10/27/20122015 Overview: 32 yo female from [place]. Family involved with care, at bedside. plan to discharge patient home - will arrange with case management for post op care as needed - follow up in OPD in 7-10 days Post-op pain 10/27/2012 12/26/2015 Overview: currently well controlled with [employer]. will start PO pain meds today 10/27. tolerating percocet, pain relatively well controlled. Hodgkin's disease with nodular sclerosis 013 12/26/2015 Overview: Oncology history (per Dr. 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 Hodgkin's disease, unspecified 02/05/2012 0 05/11/2014 Vaginal bleeding 12/26/2015 Overview: --likely from thrombocytopenia. No menses in prior 8 months. Scant amount reported on 03/29 and 03/30, now resolved --monitor bleeding by counting pads --should f/u with her [facility] provider after BMT Premature menopause 12/26/2015 Postmenopausal atrophic vaginitis 12/26/2015 Dyspareunia 12/26/2015 documented as of this encounter (statuses as of 04/01/2022) [facility] History of Past illness Narrative* Problem Noted Date Resolved Date Menorrhagia with regular cycle 03/15/2017 1 03/03/2017 Overview: Added automatically from request for surgery [id number] History of pulmonary embolism 04/25/2016 Neoplastic (malignant) [...] FOLLOW-UP 10/27/20122015 Overview: 32 yo female from [place]. Family involved with care, at bedside. plan to discharge patient home - will arrange with case management for post op care as needed - follow up in OPD in 7-10 days Post-op pain 10/27/2012 12/26/2015 Overview: currently well controlled with [employer]. will start PO pain meds today 10/27. tolerating percocet, pain relatively well controlled. Hodgkin's disease with nodular sclerosis 013 12/26/2015 Overview: Oncology history (per Dr. 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 Hodgkin's disease, unspecified 02/05/2012 0 05/11/2014 Vaginal bleeding 12/26/2015 Overview: --likely from thrombocytopenia. No menses in prior 8 months. Scant amount reported on 03/29 and 03/30, now resolved --monitor bleeding by counting pads --should f/u with her [facility] provider after BMT Premature menopause 12/26/2015 Postmenopausal atrophic vaginitis 12/26/2015 Dyspareunia 12/26/2015 documented as of this encounter (statuses as of 04/10/2022) [facility] History of Past illness Narrative* Problem Noted Date Resolved Date Menorrhagia with regular cycle 03/15/2017 1 03/03/2017 Overview: Added automatically from request for surgery [id number] History of pulmonary embolism 04/25/2016 Neoplastic (malignant) [...] FOLLOW-UP 10/27/20122015 Overview: 32 yo female from [place]. Family involved with care, at bedside. plan to discharge patient home - will arrange with case management for post op care as needed - follow up in OPD in 7-10 days Post-op pain 10/27/2012 12/26/2015 Overview: currently well controlled with [employer]. will start PO pain meds today 10/27. tolerating percocet, pain relatively well controlled. Hodgkin's disease with nodular sclerosis 013 12/26/2015 Overview: Oncology history (per Dr. 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 Hodgkin's disease, unspecified 02/05/2012 0 05/11/2014 Vaginal bleeding 12/26/2015 Overview: --likely from thrombocytopenia. No menses in prior 8 months. Scant amount reported on 03/29 and 03/30, now resolved --monitor bleeding by counting pads --should f/u with her [facility] provider after BMT Premature menopause 12/26/2015 Postmenopausal atrophic vaginitis 12/26/2015 Dyspareunia 12/26/2015 documented as of this encounter (statuses as of 04/16/2022) [facility] History of Past illness Narrative* Problem Noted Date Resolved Date Menorrhagia with regular cycle 03/15/2017 1 03/03/2017 Overview: Added automatically from request for surgery [id number] History of pulmonary embolism 04/25/2016 Neoplastic (malignant) [...] FOLLOW-UP 10/27/20122015 Overview: 32 yo female from [place]. Family involved with care, at bedside. plan to discharge patient home - will arrange with case management for post op care as needed - follow up in OPD in 7-10 days Post-op pain 10/27/2012 12/26/2015 Overview: currently well controlled with [employer]. will start PO pain meds today 10/27. tolerating percocet, pain relatively well controlled. Hodgkin's disease with nodular sclerosis 013 12/26/2015 Overview: Oncology history (per Dr. 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 Hodgkin's disease, unspecified 02/05/2012 0 05/11/2014 Vaginal bleeding 12/26/2015 Overview: --likely from thrombocytopenia. No menses in prior 8 months. Scant amount reported on 03/29 and 03/30, now resolved --monitor bleeding by counting pads --should f/u with her [facility] provider after BMT Premature menopause 12/26/2015 Postmenopausal atrophic vaginitis 12/26/2015 Dyspareunia 12/26/2015 documented as of this encounter (statuses as of 04/17/2022) [facility] History of Past illness Narrative* Problem Noted Date Resolved Date Menorrhagia with regular cycle 03/15/2017 1 03/03/2017 Overview: Added automatically from request for surgery [id number] History of pulmonary embolism 04/25/2016 Neoplastic (malignant) [...] FOLLOW-UP 10/27/20122015 Overview: 32 yo female from [place]. Family involved with care, at bedside. plan to discharge patient home - will arrange with case management for post op care as needed - follow up in OPD in 7-10 days Post-op pain 10/27/2012 12/26/2015 Overview: currently well controlled with [employer]. will start PO pain meds today 10/27. tolerating percocet, pain relatively well controlled. Hodgkin's disease with nodular sclerosis 013 12/26/2015 Overview: Oncology history (per Dr. 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 Hodgkin's disease, unspecified 02/05/2012 0 05/11/2014 Vaginal bleeding 12/26/2015 Overview: --likely from thrombocytopenia. No menses in prior 8 months. Scant amount reported on 03/29 and 03/30, now resolved --monitor bleeding by counting pads --should f/u with her [facility] provider after BMT Premature menopause 12/26/2015 Postmenopausal atrophic vaginitis 12/26/2015 Dyspareunia 12/26/2015 documented as of this encounter (statuses as of 04/20/2022) [facility] History of Past illness Narrative* Problem Noted Date Resolved Date Menorrhagia with regular cycle 03/15/2017 1 03/03/2017 Overview: Added automatically from request for surgery [id number] History of pulmonary embolism 04/25/2016 Neoplastic (malignant) [...] FOLLOW-UP 10/27/20122015 Overview: 32 yo female from [place]. Family involved with care, at bedside. plan to discharge patient home - will arrange with case management for post op care as needed - follow up in OPD in 7-10 days Post-op pain 10/27/2012 12/26/2015 Overview: currently well controlled with [employer]. will start PO pain meds today 10/27. tolerating percocet, pain relatively well controlled. Hodgkin's disease with nodular sclerosis 013 12/26/2015 Overview: Oncology history (per Dr. 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 Hodgkin's disease, unspecified 02/05/2012 0 05/11/2014 Vaginal bleeding 12/26/2015 Overview: --likely from thrombocytopenia. No menses in prior 8 months. Scant amount reported on 03/29 and 03/30, now resolved --monitor bleeding by counting pads --should f/u with her [facility] provider after BMT Premature menopause 12/26/2015 Postmenopausal atrophic vaginitis 12/26/2015 Dyspareunia 12/26/2015 documented as of this encounter (statuses as of 04/23/2022) [facility] History of Past illness Narrative* Problem Noted Date Resolved Date Menorrhagia with regular cycle 03/15/2017 1 03/03/2017 Overview: Added automatically from request for surgery [id number] History of pulmonary embolism 04/25/2016 Neoplastic (malignant) [...] FOLLOW-UP 10/27/20122015 Overview: 32 yo female from [place]. Family involved with care, at bedside. plan to discharge patient home - will arrange with case management for post op care as needed - follow up in OPD in 7-10 days Post-op pain 10/27/2012 12/26/2015 Overview: currently well controlled with [employer]. will start PO pain meds today 10/27. tolerating percocet, pain relatively well controlled. Hodgkin's disease with nodular sclerosis 013 12/26/2015 Overview: Oncology history (per Dr. 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 Hodgkin's disease, unspecified 02/05/2012 0 05/11/2014 Vaginal bleeding 12/26/2015 Overview: --likely from thrombocytopenia. No menses in prior 8 months. Scant amount reported on 03/29 and 03/30, now resolved --monitor bleeding by counting pads --should f/u with her [facility] provider after BMT Premature menopause 12/26/2015 Postmenopausal atrophic vaginitis 12/26/2015 Dyspareunia 12/26/2015 documented as of this encounter (statuses as of 04/23/2022) [facility] History of Past illness Narrative* Problem Noted Date Resolved Date Menorrhagia with regular cycle 03/15/2017 1 03/03/2017 Overview: Added automatically from request for surgery [id number] History of pulmonary embolism 04/25/2016 Neoplastic (malignant) [...] FOLLOW-UP 10/27/20122015 Overview: 32 yo female from [place]. Family involved with care, at bedside. plan to discharge patient home - will arrange with case management for post op care as needed - follow up in OPD in 7-10 days Post-op pain 10/27/2012 12/26/2015 Overview: currently well controlled with [employer]. will start PO pain meds today 10/27. tolerating percocet, pain relatively well controlled. Hodgkin's disease with nodular sclerosis 013 12/26/2015 Overview: Oncology history (per Dr. 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 Hodgkin's disease, unspecified 02/05/2012 0 05/11/2014 Vaginal bleeding 12/26/2015 Overview: --likely from thrombocytopenia. No menses in prior 8 months. Scant amount reported on 03/29 and 03/30, now resolved --monitor bleeding by counting pads --should f/u with her [facility] [facility] provider after BMT Premature menopause 12/26/2015 Postmenopausal atrophic vaginitis 12/26/2015 Dyspareunia 12/26/2015 documented as of this encounter (statuses as of 04/25/2022) [facility] History of Past illness Narrative* Problem Noted Date Resolved Date Menorrhagia with regular cycle 03/15/2017 1 03/03/2017 Overview: Added automatically from request for surgery [id number] History of pulmonary embolism 04/25/2016 Neoplastic (malignant) [...] FOLLOW-UP 10/27/20122015 Overview: 32 yo female from [place]. Family involved with care, at bedside. plan to discharge patient home - will arrange with case management for post op care as needed - follow up in OPD in 7-10 days Post-op pain 10/27/2012 12/26/2015 Overview: currently well controlled with [employer]. will start PO pain meds today 10/27. tolerating percocet, pain relatively well controlled. Hodgkin's disease with nodular sclerosis 013 12/26/2015 Overview: Oncology history (per Dr. 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 Hodgkin's disease, unspecified 02/05/2012 0 05/11/2014 Vaginal bleeding 12/26/2015 Overview: --likely from thrombocytopenia. No menses in prior 8 months. Scant amount reported on 03/29 and 03/30, now resolved --monitor bleeding by counting pads --should f/u with her [facility] [facility] provider after BMT Premature menopause 12/26/2015 Postmenopausal atrophic vaginitis 12/26/2015 Dyspareunia 12/26/2015 documented as of this encounter (statuses as of 05/01/2022) [facility] Past [facility] Narrative* Problem Noted Date Resolved Date Menorrhagia with regular cycle 03/15/2017 1 03/03/2017 Overview: Added automatically from request for surgery [id number] History of pulmonary embolism 04/25/2016 Neoplastic (malignant) [...] FOLLOW-UP 10/27/20122015 Overview: 32 yo female from [place]. Family involved with care, at bedside. plan to discharge patient home - will arrange with case management for post op care as needed - follow up in OPD in 7-10 days Post-op pain 10/27/2012 12/26/2015 Overview: currently well controlled with [employer]. will start PO pain meds today 10/27. tolerating percocet, pain relatively well controlled. Hodgkin's disease with nodular sclerosis 013 12/26/2015 Overview: Oncology history (per Dr. 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 Hodgkin's disease, unspecified 02/05/2012 0 05/11/2014 Vaginal bleeding 12/26/2015 Overview: --likely from thrombocytopenia. No menses in prior 8 months. Scant amount reported on 03/29 and 03/30, now resolved --monitor bleeding by counting pads --should f/u with her [employer] provider after BMT Premature menopause 12/26/2015 Postmenopausal atrophic vaginitis 12/26/2015 Dyspareunia 12/26/2015 documented as of this encounter (statuses as of 05/15/2022) [facility] Past [facility] Narrative* Problem Noted Date Resolved Date Menorrhagia with regular cycle 03/15/2017 1 03/03/2017 Overview: Added automatically from request for surgery [id number] History of pulmonary embolism 04/25/2016 Neoplastic (malignant) [...] FOLLOW-UP 10/27/20122015 Overview: 32 yo female from [place]. Family involved with care, at bedside. plan to discharge patient home - will arrange with case management for post op care as needed - follow up in OPD in 7-10 days Post-op pain 10/27/2012 12/26/2015 Overview: currently well controlled with [employer]. will start PO pain meds today 10/27. tolerating percocet, pain relatively well controlled. Hodgkin's disease with nodular sclerosis 013 12/26/2015 Overview: Oncology history (per Dr. 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 Hodgkin's disease, unspecified 02/05/2012 0 05/11/2014 Vaginal bleeding 12/26/2015 Overview: --likely from thrombocytopenia. No menses in prior 8 months. Scant amount reported on 03/29 and 03/30, now resolved --monitor bleeding by counting pads --should f/u with her [employer] provider after BMT Premature menopause 12/26/2015 Postmenopausal atrophic vaginitis 12/26/2015 Dyspareunia 12/26/2015 documented as of this encounter (statuses as of 05/21/2022) [facility] Past illness Narrative* Problem Noted Date Resolved Date Menorrhagia with regular cycle 03/15/2017 1 03/03/2017 Overview: Added automatically from request for surgery [id number] History of pulmonary embolism 04/25/2016 Neoplastic (malignant) [...] FOLLOW-UP 10/27/20122015 Overview: 32 yo female from [place]. Family involved with care, at bedside. plan to discharge patient home - will arrange with case management for post op care as needed - follow up in OPD in 7-10 days Post-op pain 10/27/2012 12/26/2015 Overview: currently well controlled with [employer]. will start PO pain meds today 10/27. tolerating percocet, pain relatively well controlled. Hodgkin's disease with nodular sclerosis 013 12/26/2015 Overview: Oncology history (per Dr. 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 Hodgkin's disease, unspecified 02/05/2012 0 05/11/2014 Vaginal bleeding 12/26/2015 Overview: --likely from thrombocytopenia. No menses in prior 8 months. Scant amount reported on 03/29 and 03/30, now resolved --monitor bleeding by counting pads --should f/u with her [employer] [facility] provider after BMT Premature menopause 12/26/2015 Postmenopausal atrophic vaginitis 12/26/2015 Dyspareunia 12/26/2015 documented as of this encounter (statuses as of 05/21/2022) [facility] Past [facility] Narrative* Problem Noted Date Resolved Date Menorrhagia with regular cycle 03/15/2017 1 03/03/2017 Overview: Added automatically from request for surgery [id number] History of pulmonary embolism 04/25/2016 Neoplastic (malignant) [...] FOLLOW-UP 10/27/20122015 Overview: 32 yo female from [place]. Family involved with care, at bedside. plan to discharge patient home - will arrange with case management for post op care as needed - follow up in OPD in 7-10 days Post-op pain 10/27/2012 12/26/2015 Overview: currently well controlled with [employer]. will start PO pain meds today 10/27. tolerating percocet, pain relatively well controlled. Hodgkin's disease with nodular sclerosis 013 12/26/2015 Overview: Oncology history (per Dr. 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 Hodgkin's disease, unspecified 02/05/2012 0 05/11/2014 Vaginal bleeding 12/26/2015 Overview: --likely from thrombocytopenia. No menses in prior 8 months. Scant amount reported on 03/29 and 03/30, now resolved --monitor bleeding by counting pads --should f/u with her [facility] provider after BMT Premature menopause 12/26/2015 Postmenopausal atrophic vaginitis 12/26/2015 Dyspareunia 12/26/2015 documented as of this encounter (statuses as of 06/11/2022) [facility] History of Past illness Narrative* Problem Noted Date Resolved Date Menorrhagia with regular cycle 03/15/2017 1 03/03/2017 Overview: Added automatically from request for surgery [id number] History of pulmonary embolism 04/25/2016 Neoplastic (malignant) [...] FOLLOW-UP 10/27/20122015 Overview: 32 yo female from [place], [place]. Family involved with care, at bedside. plan to discharge patient home - will arrange with case management for post op care as needed - follow up in OPD in 7-10 days Post-op pain 10/27/2012 12/26/2015 Overview: currently well controlled with [employer]. will start PO pain meds today 10/27. tolerating percocet, pain relatively well controlled. Hodgkin's disease with nodular sclerosis 013 12/26/2015 Overview: Oncology history (per Dr. 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 Hodgkin's disease, unspecified 02/05/2012 0 05/11/2014 Vaginal bleeding 12/26/2015 Overview: --likely from thrombocytopenia. No menses in prior 8 months. Scant amount reported on 03/29 and 03/30, now resolved --monitor bleeding by counting pads --should f/u with her [facility] provider after BMT Premature menopause 12/26/2015 Postmenopausal atrophic vaginitis 12/26/2015 Dyspareunia 12/26/2015 documented as of this encounter (statuses as of 06/12/2022) [facility] History of Past illness Narrative* Problem Noted Date Resolved Date Menorrhagia with regular cycle 03/15/2017 1 03/03/2017 Overview: Added automatically from request for surgery [id number] History of pulmonary embolism 04/25/2016 Neoplastic (malignant) [...] FOLLOW-UP 10/27/20122015 Overview: 32 yo female from [place], [place]. Family involved with care, at bedside. plan to discharge patient home - will arrange with case management for post op care as needed - follow up in OPD in 7-10 days Post-op pain 10/27/2012 12/26/2015 Overview: currently well controlled with [employer]. will start PO pain meds today 10/27. tolerating percocet, pain relatively well controlled. Hodgkin's disease with nodular sclerosis 013 12/26/2015 Overview: Oncology history (per Dr. 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 Hodgkin's disease, unspecified 02/05/2012 0 05/11/2014 Vaginal bleeding 12/26/2015 Overview: --likely from thrombocytopenia. No menses in prior 8 months. Scant amount reported on 03/29 and 03/30, now resolved --monitor bleeding by counting pads --should f/u with her [facility] provider after BMT Premature menopause 12/26/2015 Postmenopausal atrophic vaginitis 12/26/2015 Dyspareunia 12/26/2015 documented as of this encounter (statuses as of 06/12/2022) [facility] History of Past illness Narrative* Problem Noted Date Resolved Date Menorrhagia with regular cycle 03/15/2017 1 03/03/2017 Overview: Added automatically from request for surgery [id number] History of pulmonary embolism 04/25/2016 Neoplastic (malignant) [...] FOLLOW-UP 10/27/20122015 Overview: 32 yo female from [place]. Family involved with care, at bedside. plan to discharge patient home - will arrange with case management for post op care as needed - follow up in OPD in 7-10 days Post-op pain 10/27/2012 12/26/2015 Overview: currently well controlled with [employer]. will start PO pain meds today 10/27. tolerating percocet, pain relatively well controlled. Hodgkin's disease with nodular sclerosis 013 12/26/2015 Overview: Oncology history (per Dr. 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 Hodgkin's disease, unspecified 02/05/2012 0 05/11/2014 Vaginal bleeding 12/26/2015 Overview: --likely from thrombocytopenia. No menses in prior 8 months. Scant amount reported on 03/29 and 03/30, now resolved --monitor bleeding by counting pads --should f/u with her [facility] provider after BMT Premature menopause 12/26/2015 Postmenopausal atrophic vaginitis 12/26/2015 Dyspareunia 12/26/2015 documented as of this encounter (statuses as of 06/12/2022) [facility] History of Past illness Narrative* Problem Noted Date Resolved Date Menorrhagia with regular cycle 03/15/2017 1 03/03/2017 Overview: Added automatically from request for surgery [id number] History of pulmonary embolism 04/25/2016 Neoplastic (malignant) [...] FOLLOW-UP 10/27/20122015 Overview: 32 yo female from [place]. Family involved with care, at bedside. plan to discharge patient home - will arrange with case management for post op care as needed - follow up in OPD in 7-10 days Post-op pain 10/27/2012 12/26/2015 Overview: currently well controlled with [employer]. will start PO pain meds today 10/27. tolerating percocet, pain relatively well controlled. Hodgkin's disease with nodular sclerosis 013 12/26/2015 Overview: Oncology history (per Dr. 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 Hodgkin's disease, unspecified 02/05/2012 0 05/11/2014 Vaginal bleeding 12/26/2015 Overview: --likely from thrombocytopenia. No menses in prior 8 months. Scant amount reported on 03/29 and 03/30, now resolved --monitor bleeding by counting pads --should f/u with her [facility] provider after BMT Premature menopause 12/26/2015 Postmenopausal atrophic vaginitis 12/26/2015 Dyspareunia 12/26/2015 documented as of this encounter (statuses as of 06/15/2022) [facility] History of Past illness Narrative* Problem Noted Date Resolved Date Menorrhagia with regular cycle 03/15/2017 1 03/03/2017 Overview: Added automatically from request for surgery [id number] History of pulmonary embolism 04/25/2016 Neoplastic (malignant) [...] FOLLOW-UP 10/27/20122015 Overview: 32 yo female from [place]. Family involved with care, at bedside. plan to discharge patient home - will arrange with case management for post op care as needed - follow up in OPD in 7-10 days Post-op pain 10/27/2012 12/26/2015 Overview: currently well controlled with [employer]. will start PO pain meds today 10/27. tolerating percocet, pain relatively well controlled. Hodgkin's disease with nodular sclerosis 013 12/26/2015 Overview: Oncology history (per Dr. 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 Hodgkin's disease, unspecified 02/05/2012 0 05/11/2014 Vaginal bleeding 12/26/2015 Overview: --likely from thrombocytopenia. No menses in prior 8 months. Scant amount reported on 03/29 and 03/30, now resolved --monitor bleeding by counting pads --should f/u with her [facility] provider after BMT Premature menopause 12/26/2015 Postmenopausal atrophic vaginitis 12/26/2015 Dyspareunia 12/26/2015 documented as of this encounter (statuses as of 07/17/2022) [facility] History of Past illness Narrative* Problem Noted Date Resolved Date Menorrhagia with regular cycle 03/15/2017 1 03/03/2017 Overview: Added automatically from request for surgery [id number] History of pulmonary embolism 04/25/2016 Neoplastic (malignant) [...] FOLLOW-UP 10/27/20122015 Overview: 32 yo female from [place]. Family involved with care, at bedside. plan to discharge patient home - will arrange with case management for post op care as needed - follow up in OPD in 7-10 days Post-op pain 10/27/2012 12/26/2015 Overview: currently well controlled with [employer]. will start PO pain meds today 10/27. tolerating percocet, pain relatively well controlled. Hodgkin's disease with nodular sclerosis 013 12/26/2015 Overview: Oncology history (per Dr. 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 Hodgkin's disease, unspecified 02/05/2012 0 05/11/2014 Vaginal bleeding 12/26/2015 Overview: --likely from thrombocytopenia. No menses in prior 8 months. Scant amount reported on 03/29 and 03/30, now resolved --monitor bleeding by counting pads --should f/u with her [facility] [facility] provider after BMT Premature menopause 12/26/2015 Postmenopausal atrophic vaginitis 12/26/2015 Dyspareunia 12/26/2015 documented as of this encounter (statuses as of 07/17/2022) [facility] History of Past illness Narrative* Problem Noted Date Resolved Date Menorrhagia with regular cycle 03/15/2017 1 03/03/2017 Overview: Added automatically from request for surgery [id number] History of pulmonary embolism 04/25/2016 Neoplastic (malignant) [...] FOLLOW-UP 10/27/20122015 Overview: 32 yo female from [place]. Family involved with care, at bedside. plan to discharge patient home - will arrange with case management for post op care as needed - follow up in OPD in 7-10 days Post-op pain 10/27/2012 12/26/2015 Overview: currently well controlled with [employer]. will start PO pain meds today 10/27. tolerating percocet, pain relatively well controlled. Hodgkin's disease with nodular sclerosis 013 12/26/2015 Overview: Oncology history (per Dr. 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 Hodgkin's disease, unspecified 02/05/2012 0 05/11/2014 Vaginal bleeding 12/26/2015 Overview: --likely from thrombocytopenia. No menses in prior 8 months. Scant amount reported on 03/29 and 03/30, now resolved --monitor bleeding by counting pads --should f/u with her [facility] provider after BMT Premature menopause 12/26/2015 Postmenopausal atrophic vaginitis 12/26/2015 Dyspareunia 12/26/2015 documented as of this encounter (statuses as of 07/18/2022) [facility] History of Past illness Narrative* Problem Noted Date Resolved Date Menorrhagia with regular cycle 03/15/2017 1 03/03/2017 Overview: Added automatically from request for surgery [id number] History of pulmonary embolism 04/25/2016 Neoplastic (malignant) [...] FOLLOW-UP 10/27/20122015 Overview: 32 yo female from [place]. Family involved with care, at bedside. plan to discharge patient home - will arrange with case management for post op care as needed - follow up in OPD in 7-10 days Post-op pain 10/27/2012 12/26/2015 Overview: currently well controlled with [employer]. will start PO pain meds today 10/27. tolerating percocet, pain relatively well controlled. Hodgkin's disease with nodular sclerosis 013 12/26/2015 Overview: Oncology history (per Dr. 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 Hodgkin's disease, unspecified 02/05/2012 0 05/11/2014 Vaginal bleeding 12/26/2015 Overview: --likely from thrombocytopenia. No menses in prior 8 months. Scant amount reported on 03/29 and 03/30, now resolved --monitor bleeding by counting pads --should f/u with her [facility] [facility] provider after BMT Premature menopause 12/26/2015 Postmenopausal atrophic vaginitis 12/26/2015 Dyspareunia 12/26/2015 documented as of this encounter (statuses as of 07/19/2022) [facility] History of Past illness Narrative* Problem Noted Date Resolved Date Menorrhagia with regular cycle 03/15/2017 1 03/03/2017 Overview: Added automatically from request for surgery [id number] History of pulmonary embolism 04/25/2016 Neoplastic (malignant) [...] FOLLOW-UP 10/27/20122015 Overview: 32 yo female from [place]. Family involved with care, at bedside. plan to discharge patient home - will arrange with case management for post op care as needed - follow up in OPD in 7-10 days Post-op pain 10/27/2012 12/26/2015 Overview: currently well controlled with [employer]. will start PO pain meds today 10/27. tolerating percocet, pain relatively well controlled. Hodgkin's disease with nodular sclerosis 013 12/26/2015 Overview: Oncology history (per Dr. 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 Hodgkin's disease, unspecified 02/05/2012 0 05/11/2014 Vaginal bleeding 12/26/2015 Overview: --likely from thrombocytopenia. No menses in prior 8 months. Scant amount reported on 03/29 and 03/30, now resolved --monitor bleeding by counting pads --should f/u with her [employer] provider after BMT Premature menopause 12/26/2015 Postmenopausal atrophic vaginitis 12/26/2015 Dyspareunia 12/26/2015 documented as of this encounter (statuses as of 07/19/2022) [facility] History of Past illness Narrative* Problem Noted Date Resolved Date Menorrhagia with regular cycle 03/15/2017 1 03/03/2017 Overview: Added automatically from request for surgery [id number] History of pulmonary embolism 04/25/2016 Neoplastic (malignant) [...] FOLLOW-UP 10/27/20122015 Overview: 32 yo female from [place]. Family involved with care, at bedside. plan to discharge patient home - will arrange with case management for post op care as needed - follow up in OPD in 7-10 days Post-op pain 10/27/2012 12/26/2015 Overview: currently well controlled with [employer]. will start PO pain meds today 10/27. tolerating percocet, pain relatively well controlled. Hodgkin's disease with nodular sclerosis 013 12/26/2015 Overview: Oncology history (per Dr. 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 Hodgkin's disease, unspecified 02/05/2012 0 05/11/2014 Vaginal bleeding 12/26/2015 Overview: --likely from thrombocytopenia. No menses in prior 8 months. Scant amount reported on 03/29 and 03/30, now resolved --monitor bleeding by counting pads --should f/u with her [employer] provider after BMT Premature menopause 12/26/2015 Postmenopausal atrophic vaginitis 12/26/2015 Dyspareunia 12/26/2015 documented as of this encounter (statuses as of 07/25/2022) [facility] History of Past illness Narrative* Problem Noted Date Resolved Date Menorrhagia with regular cycle 03/15/2017 1 03/03/2017 Overview: Added automatically from request for surgery [id number] History of pulmonary embolism 04/25/2016 Neoplastic (malignant) [...] FOLLOW-UP 10/27/20122015 Overview: 32 yo female from [place]. Family involved with care, at bedside. plan to discharge patient home - will arrange with case management for post op care as needed - follow up in OPD in 7-10 days Post-op pain 10/27/2012 12/26/2015 Overview: currently well controlled with [employer]. will start PO pain meds today 10/27. tolerating percocet, pain relatively well controlled. Hodgkin's disease with nodular sclerosis 013 12/26/2015 Overview: Oncology history (per Dr. 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 Hodgkin's disease, unspecified 02/05/2012 0 05/11/2014 Vaginal bleeding 12/26/2015 Overview: --likely from thrombocytopenia. No menses in prior 8 months. Scant amount reported on 03/29 and 03/30, now resolved --monitor bleeding by counting pads --should f/u with her [facility] provider after BMT Premature menopause 12/26/2015 Postmenopausal atrophic vaginitis 12/26/2015 Dyspareunia 12/26/2015 documented as of this encounter (statuses as of 07/25/2022) [facility] of Past illness Narrative* Problem Noted Date Resolved Date Menorrhagia with regular cycle 03/15/2017 1 03/03/2017 Overview: Added automatically from request for surgery [id number] History of pulmonary embolism 04/25/2016 Neoplastic (malignant) [...] FOLLOW-UP 10/27/20122015 Overview: 32 yo female from [place]. Family involved with care, at bedside. plan to discharge patient home - will arrange with case management for post op care as needed - follow up in OPD in 7-10 days Post-op pain 10/27/2012 12/26/2015 Overview: currently well controlled with [employer]. will start PO pain meds today 10/27. tolerating percocet, pain relatively well controlled. Hodgkin's disease with nodular sclerosis 013 12/26/2015 Overview: Oncology history (per Dr. 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 Hodgkin's disease, unspecified 02/05/2012 0 05/11/2014 Vaginal bleeding 12/26/2015 Overview: --likely from thrombocytopenia. No menses in prior 8 months. Scant amount reported on 03/29 and 03/30, now resolved --monitor bleeding by counting pads --should f/u with her [employer] provider after BMT Premature menopause 12/26/2015 Postmenopausal atrophic vaginitis 12/26/2015 Dyspareunia 12/26/2015 documented as of this encounter (statuses as of 07/25/2022) [facility] Past [facility] Narrative* Problem Noted Date Resolved Date Menorrhagia with regular cycle 03/15/2017 1 03/03/2017 Overview: Added automatically from request for surgery [id number] History of pulmonary embolism 04/25/2016 Neoplastic (malignant) [...] FOLLOW-UP 10/27/20122015 Overview: 32 yo female from [place]. Family involved with care, at bedside. plan to discharge patient home - will arrange with case management for post op care as needed - follow up in OPD in 7-10 days Post-op pain 10/27/2012 12/26/2015 Overview: currently well controlled with [employer]. will start PO pain meds today 10/27. tolerating percocet, pain relatively well controlled. Hodgkin's disease with nodular sclerosis 013 12/26/2015 Overview: Oncology history (per Dr. 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 Hodgkin's disease, unspecified 02/05/2012 0 05/11/2014 Vaginal bleeding 12/26/2015 Overview: --likely from thrombocytopenia. No menses in prior 8 months. Scant amount reported on 03/29 and 03/30, now resolved --monitor bleeding by counting pads --should f/u with her [employer] provider after BMT Premature menopause 12/26/2015 Postmenopausal atrophic vaginitis 12/26/2015 Dyspareunia 12/26/2015 documented as of this encounter (statuses as of 08/02/2022) [facility] of Past illness Narrative* Problem Noted Date Resolved Date Menorrhagia with regular cycle 03/15/2017 1 03/03/2017 Overview: Added automatically from request for surgery [id number] History of pulmonary embolism 04/25/2016 Neoplastic (malignant) [...] FOLLOW-UP 10/27/20122015 Overview: 32 yo female from [place]. Family involved with care, at bedside. plan to discharge patient home - will arrange with case management for post op care as needed - follow up in OPD in 7-10 days Post-op pain 10/27/2012 12/26/2015 Overview: currently well controlled with [employer]. will start PO pain meds today 10/27. tolerating percocet, pain relatively well controlled. Hodgkin's disease with nodular sclerosis 013 12/26/2015 Overview: Oncology history (per Dr. 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 Hodgkin's disease, unspecified 02/05/2012 0 05/11/2014 Vaginal bleeding 12/26/2015 Overview: --likely from thrombocytopenia. No menses in prior 8 months. Scant amount reported on 03/29 and 03/30, now resolved --monitor bleeding by counting pads --should f/u with her [employer] provider after BMT Premature menopause 12/26/2015 Postmenopausal atrophic vaginitis 12/26/2015 Dyspareunia 12/26/2015 documented as of this encounter (statuses as of 08/05/2022) [facility] Past illness Narrative* Problem Noted Date Resolved Date Menorrhagia with regular cycle 03/15/2017 1 03/03/2017 Overview: Added automatically from request for surgery [id number] History of pulmonary embolism 04/25/2016 Neoplastic (malignant) [...] FOLLOW-UP 10/27/20122015 Overview: 32 yo female from [place]. Family involved with care, at bedside. plan to discharge patient home - will arrange with case management for post op care as needed - follow up in OPD in 7-10 days Post-op pain 10/27/2012 12/26/2015 Overview: currently well controlled with [employer]. will start PO pain meds today 10/27. tolerating percocet, pain relatively well controlled. Hodgkin's disease with nodular sclerosis 013 12/26/2015 Overview: Oncology history (per Dr. 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 Hodgkin's disease, unspecified 02/05/2012 0 05/11/2014 Vaginal bleeding 12/26/2015 Overview: --likely from thrombocytopenia. No menses in prior 8 months. Scant amount reported on 03/29 and 03/30, now resolved --monitor bleeding by counting pads --should f/u with her [facility] provider after BMT Premature menopause 12/26/2015 Postmenopausal atrophic vaginitis 12/26/2015 Dyspareunia 12/26/2015 documented as of this encounter (statuses as of 08/10/2022) [facility] History of Past illness Narrative* Problem Noted Date Resolved Date Menorrhagia with regular cycle 03/15/2017 1 03/03/2017 Overview: Added automatically from request for surgery [id number] History of pulmonary embolism 04/25/2016 Neoplastic (malignant) [...] FOLLOW-UP 10/27/20122015 Overview: 32 yo female from [place], [place]. Family involved with care, at bedside. plan to discharge patient home - will arrange with case management for post op care as needed - follow up in OPD in 7-10 days Post-op pain 10/27/2012 12/26/2015 Overview: currently well controlled with [employer]. will start PO pain meds today 10/27. tolerating percocet, pain relatively well controlled. Hodgkin's disease with nodular sclerosis 013 12/26/2015 Overview: Oncology history (per Dr. 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 Hodgkin's disease, unspecified 02/05/2012 0 05/11/2014 Vaginal bleeding 12/26/2015 Overview: --likely from thrombocytopenia. No menses in prior 8 months. Scant amount reported on 03/29 and 03/30, now resolved --monitor bleeding by counting pads --should f/u with her [facility] provider after BMT Premature menopause 12/26/2015 Postmenopausal atrophic vaginitis 12/26/2015 Dyspareunia 12/26/2015 documented as of this encounter (statuses as of 08/10/2022) [facility] History of Past illness Narrative* Problem Noted Date Resolved Date Menorrhagia with regular cycle 03/15/2017 1 03/03/2017 Overview: Added automatically from request for surgery [id number] History of pulmonary embolism 04/25/2016 Neoplastic (malignant) [...] FOLLOW-UP 10/27/20122015 Overview: 32 yo female from [place]. Family involved with care, at bedside. plan to discharge patient home - will arrange with case management for post op care as needed - follow up in OPD in 7-10 days Post-op pain 10/27/2012 12/26/2015 Overview: currently well controlled with [employer]. will start PO pain meds today 10/27. tolerating percocet, pain relatively well controlled. Hodgkin's disease with nodular sclerosis 013 12/26/2015 Overview: Oncology history (per Dr. 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 Hodgkin's disease, unspecified 02/05/2012 0 05/11/2014 Vaginal bleeding 12/26/2015 Overview: --likely from thrombocytopenia. No menses in prior 8 months. Scant amount reported on 03/29 and 03/30, now resolved --monitor bleeding by counting pads --should f/u with her [facility] provider after BMT Premature menopause 12/26/2015 Postmenopausal atrophic vaginitis 12/26/2015 Dyspareunia 12/26/2015 documented as of this encounter (statuses as of 08/17/2022) [facility] History of Past illness Narrative* Problem Noted Date Resolved Date Menorrhagia with regular cycle 03/15/2017 1 03/03/2017 Overview: Added automatically from request for surgery [id number] History of pulmonary embolism 04/25/2016 Neoplastic (malignant) [...] FOLLOW-UP 10/27/20122015 Overview: 32 yo female from [place]. Family involved with care, at bedside. plan to discharge patient home - will arrange with case management for post op care as needed - follow up in OPD in 7-10 days Post-op pain 10/27/2012 12/26/2015 Overview: currently well controlled with [employer]. will start PO pain meds today 10/27. tolerating percocet, pain relatively well controlled. Hodgkin's disease with nodular sclerosis 013 12/26/2015 Overview: Oncology history (per Dr. 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 Hodgkin's disease, unspecified 02/05/2012 0 05/11/2014 Vaginal bleeding 12/26/2015 Overview: --likely from thrombocytopenia. No menses in prior 8 months. Scant amount reported on 03/29 and 03/30, now resolved --monitor bleeding by counting pads --should f/u with her [facility] provider after BMT Premature menopause 12/26/2015 Postmenopausal atrophic vaginitis 12/26/2015 Dyspareunia 12/26/2015 documented as of this encounter (statuses as of 08/23/2022) [facility] History of Past illness Narrative* Problem Noted Date Diagnosed Date Resolved Date Menorrhagia with regular cycle 03/15/2017 01/01/2018 Overview: Added automatically from request for surgery [id number] History of pulmonary embolism 04/25/2016 01/01/2018 Neoplastic [...] FOLLOW-UP 10/27/2012 Overview: 32 yo female from [place]. Family involved with care, at bedside. plan to discharge patient home - will arrange with case management for post op care as needed - follow up in OPD in 7-10 days Post-op pain 10/27/2012 12/26/2015 Overview: currently well controlled with [employer]. will start PO pain meds today 10/27. tolerating percocet, pain relatively well controlled. Hodgkin's disease with nodular sclerosis 05/27/2012 12/26/2015 Overview: Oncology history (per Dr. 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 Hodgkin's disease, unspecified 02/05/2012 05/11/2014 Vaginal bleeding 12/26/2015 Overview: --likely from thrombocytopenia. No menses in prior 8 months. Scant amount reported on 03/29 and 03/30, now resolved --monitor bleeding by counting pads --should f/u with her [facility] provider after BMT Premature menopause 12/26/19 16 Postmenopausal atrophic vaginitis 12/26/2015 Dyspareunia 12/26/2015 documented as of this encounter (statuses as of 08/27/2022) [facility] History of Past illness Narrative* Problem Noted Date Diagnosed Date Resolved Date Menorrhagia with regular cycle 03/15/2017 01/01/2018 Overview: Added automatically from request for surgery [id number] History of pulmonary embolism 04/25/2016 01/01/2018 Neoplastic [...] FOLLOW-UP 10/27/2012 Overview: 32 yo female from [place]. Family involved with care, at bedside. plan to discharge patient home - will arrange with case management for post op care as needed - follow up in OPD in 7-10 days Post-op pain 10/27/2012 12/26/2015 Overview: currently well controlled with [employer]. will start PO pain meds today 10/27. tolerating percocet, pain relatively well controlled. Hodgkin's disease with nodular sclerosis 05/27/2012 12/26/2015 Overview: Oncology history (per Dr. 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 Hodgkin's disease, unspecified 02/05/2012 05/11/2014 Vaginal bleeding 12/26/2015 Overview: --likely from thrombocytopenia. No menses in prior 8 months. Scant amount reported on 03/29 and 03/30, now resolved --monitor bleeding by counting pads --should f/u with her [facility] provider after BMT Premature menopause 12/26/19 16 Postmenopausal atrophic vaginitis 12/26/2015 Dyspareunia 12/26/2015 documented as of this encounter (statuses as of 08/30/2022) [facility] History of Past illness Narrative* Problem Noted Date Diagnosed Date Resolved Date Menorrhagia with regular cycle 03/15/2017 01/01/2018 Overview: Added automatically from request for surgery [id number] History of pulmonary embolism 04/25/2016 01/01/2018 Neoplastic [...] FOLLOW-UP 10/27/2012 Overview: 32 yo female from [place]. Family involved with care, at bedside. plan to discharge patient home - will arrange with case management for post op care as needed - follow up in OPD in 7-10 days Post-op pain 10/27/2012 12/26/2015 Overview: currently well controlled with [employer]. will start PO pain meds today 10/27. tolerating percocet, pain relatively well controlled. Hodgkin's disease with nodular sclerosis 05/27/2012 12/26/2015 Overview: Oncology history (per Dr. 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 Hodgkin's disease, unspecified 02/05/2012 05/11/2014 Vaginal bleeding 12/26/2015 Overview: --likely from thrombocytopenia. No menses in prior 8 months. Scant amount reported on 03/29 and 03/30, now resolved --monitor bleeding by counting pads --should f/u with her [facility] provider after BMT Premature menopause 12/26/19 16 Postmenopausal atrophic vaginitis 12/26/2015 Dyspareunia 12/26/2015 documented as of this encounter (statuses as of 08/31/2022) [facility] History of Past illness Narrative* Problem Noted Date Diagnosed Date Resolved Date Menorrhagia with regular cycle 03/15/2017 01/01/2018 Overview: Added automatically from request for surgery [id number] History of pulmonary embolism 04/25/2016 01/01/2018 Neoplastic [...] FOLLOW-UP 10/27/2012 Overview: 32 yo female from [place]. Family involved with care, at bedside. plan to discharge patient home - will arrange with case management for post op care as needed - follow up in OPD in 7-10 days Post-op pain 10/27/2012 12/26/2015 Overview: currently well controlled with [employer]. will start PO pain meds today 10/27. tolerating percocet, pain relatively well controlled. Hodgkin's disease with nodular sclerosis 05/27/2012 12/26/2015 Overview: Oncology history (per Dr. 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 Hodgkin's disease, unspecified 02/05/2012 05/11/2014 Vaginal bleeding 12/26/2015 Overview: --likely from thrombocytopenia. No menses in prior 8 months. Scant amount reported on 03/29 and 03/30, now resolved --monitor bleeding by counting pads --should f/u with her [employer] provider after BMT Premature menopause 12/26/19 16 Postmenopausal atrophic vaginitis 12/26/2015 Dyspareunia 12/26/2015 documented as of this encounter (statuses as of 09/01/2022) [facility] History of Past illness Narrative* Problem Noted Date Diagnosed Date Resolved Date Menorrhagia with regular cycle 03/15/2017 01/01/2018 Overview: Added automatically from request for surgery [id number] History of pulmonary embolism 04/25/2016 01/01/2018 Neoplastic [...] FOLLOW-UP 10/27/2012 Overview: 32 yo female from [place]. Family involved with care, at bedside. plan to discharge patient home - will arrange with case management for post op care as needed - follow up in OPD in 7-10 days Post-op pain 10/27/2012 12/26/2015 Overview: currently well controlled with [employer]. will start PO pain meds today 10/27. tolerating percocet, pain relatively well controlled. Hodgkin's disease with nodular sclerosis 05/27/2012 12/26/2015 Overview: Oncology history (per Dr. 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 Hodgkin's disease, unspecified 02/05/2012 05/11/2014 Vaginal bleeding 12/26/2015 Overview: --likely from thrombocytopenia. No menses in prior 8 months. Scant amount reported on 03/29 and 03/30, now resolved --monitor bleeding by counting pads --should f/u with her [employer] provider after BMT Premature menopause 12/26/19 16 Postmenopausal atrophic vaginitis 12/26/2015 Dyspareunia 12/26/2015 documented as of this encounter (statuses as of 09/06/2022) [facility] History of Past illness Narrative* Problem Noted Date Diagnosed Date Resolved Date Menorrhagia with regular cycle 03/15/2017 01/01/2018 Overview: Added automatically from request for surgery [id number] History of pulmonary embolism 04/25/2016 01/01/2018 Neoplastic [...] FOLLOW-UP 10/27/2012 Overview: 32 yo female from [place]. Family involved with care, at bedside. plan to discharge patient home - will arrange with case management for post op care as needed - follow up in OPD in 7-10 days Post-op pain 10/27/2012 12/26/2015 Overview: currently well controlled with [employer]. will start PO pain meds today 10/27. tolerating percocet, pain relatively well controlled. Hodgkin's disease with nodular sclerosis 05/27/2012 12/26/2015 Overview: Oncology history (per Dr. 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 Hodgkin's disease, unspecified 02/05/2012 05/11/2014 Vaginal bleeding 12/26/2015 Overview: --likely from thrombocytopenia. No menses in prior 8 months. Scant amount reported on 03/29 and 03/30, now resolved --monitor bleeding by counting pads --should f/u with her [employer] provider after BMT Premature menopause 12/26/19 16 Postmenopausal atrophic vaginitis 12/26/2015 Dyspareunia 12/26/2015 documented as of this encounter (statuses as of 09/13/2022) [place] [id number] History of Past illness Narrative* Problem Noted Date Diagnosed Date Resolved Date Menorrhagia with regular cycle 03/15/2017 01/01/2018 Overview: Added automatically from request for surgery [id number] History of pulmonary embolism 04/25/2016 01/01/2018 Neoplastic [...] FOLLOW-UP 10/27/2012 Overview: 32 yo female from [place]. Family involved with care, at bedside. plan to discharge patient home - will arrange with case management for post op care as needed - follow up in OPD in 7-10 days Post-op pain 10/27/2012 12/26/2015 Overview: currently well controlled with [employer]. will start PO pain meds today 10/27. tolerating percocet, pain relatively well controlled. Hodgkin's disease with nodular sclerosis 05/27/2012 12/26/2015 Overview: Oncology history (per Dr. 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 Hodgkin's disease, unspecified 02/05/2012 05/11/2014 Vaginal bleeding 12/26/2015 Overview: --likely from thrombocytopenia. No menses in prior 8 months. Scant amount reported on 03/29 and 03/30, now resolved --monitor bleeding by counting pads --should f/u with her [employer] provider after BMT Premature menopause 12/26/19 16 Postmenopausal atrophic vaginitis 12/26/2015 Dyspareunia 12/26/2015 documented as of this encounter (statuses as of 09/28/2022) [facility] History of Past illness Narrative* Problem Noted Date Diagnosed Date Resolved Date Menorrhagia with regular cycle 03/15/2017 01/01/2018 Overview: Added automatically from request for surgery [id number] History of pulmonary embolism 04/25/2016 01/01/2018 Neoplastic [...] FOLLOW-UP 10/27/2012 Overview: 32 yo female from [place]. Family involved with care, at bedside. plan to discharge patient home - will arrange with case management for post op care as needed - follow up in OPD in 7-10 days Post-op pain 10/27/2012 12/26/2015 Overview: currently well controlled with [employer]. will start PO pain meds today 10/27. tolerating percocet, pain relatively well controlled. Hodgkin's disease with nodular sclerosis 05/27/2012 12/26/2015 Overview: Oncology history (per Dr. 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 Hodgkin's disease, unspecified 02/05/2012 05/11/2014 Vaginal bleeding 12/26/2015 Overview: --likely from thrombocytopenia. No menses in prior 8 months. Scant amount reported on 03/29 and 03/30, now resolved --monitor bleeding by counting pads --should f/u with her [employer] provider after BMT Premature menopause 12/26/19 16 Postmenopausal atrophic vaginitis 12/26/2015 Dyspareunia 12/26/2015 documented as of this encounter (statuses as of 10/08/2022) [facility] of Past illness Narrative* Problem Noted Date Diagnosed Date Resolved Date Menorrhagia with regular cycle 03/15/2017 01/01/2018 Overview: Added automatically from request for surgery [id number] History of pulmonary embolism 04/25/2016 01/01/2018 Neoplastic [...] FOLLOW-UP 10/27/2012 Overview: 32 yo female from [place]. Family involved with care, at bedside. plan to discharge patient home - will arrange with case management for post op care as needed - follow up in OPD in 7-10 days Post-op pain 10/27/2012 12/26/2015 Overview: currently well controlled with [employer]. will start PO pain meds today 10/27. tolerating percocet, pain relatively well controlled. Hodgkin's disease with nodular sclerosis 05/27/2012 12/26/2015 Overview: Oncology history (per Dr. 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 Hodgkin's disease, unspecified 02/05/2012 05/11/2014 Vaginal bleeding 12/26/2015 Overview: --likely from thrombocytopenia. No menses in prior 8 months. Scant amount reported on 03/29 and 03/30, now resolved --monitor bleeding by counting pads --should f/u with her [employer] provider after BMT Premature menopause 12/26/19 16 Postmenopausal atrophic vaginitis 12/26/2015 Dyspareunia 12/26/2015 documented as of this encounter (statuses as of 10/09/2022) [facility] Past illness Narrative* Problem Noted Date Diagnosed Date Resolved Date Menorrhagia with regular cycle 03/15/2017 01/01/2018 Overview: Added automatically from request for surgery [id number] History of pulmonary embolism 04/25/2016 01/01/2018 Neoplastic [...] FOLLOW-UP 10/27/2012 Overview: 32 yo female from [place]. Family involved with care, at bedside. plan to discharge patient home - will arrange with case management for post op care as needed - follow up in OPD in 7-10 days Post-op pain 10/27/2012 12/26/2015 Overview: currently well controlled with [employer]. will start PO pain meds today 10/27. tolerating percocet, pain relatively well controlled. Hodgkin's disease with nodular sclerosis 05/27/2012 12/26/2015 Overview: Oncology history (per Dr. 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 Hodgkin's disease, unspecified 02/05/2012 05/11/2014 Vaginal bleeding 12/26/2015 Overview: --likely from thrombocytopenia. No menses in prior 8 months. Scant amount reported on 03/29 and 03/30, now resolved --monitor bleeding by counting pads --should f/u with her [employer] provider after BMT Premature menopause 12/26/19 16 Postmenopausal atrophic vaginitis 12/26/2015 Dyspareunia 12/26/2015 documented as of this encounter (statuses as of 10/09/2022) [facility] of Past illness Narrative* Problem Noted Date Diagnosed Date Resolved Date Menorrhagia with regular cycle 03/15/2017 01/01/2018 Overview: Added automatically from request for surgery [id number] History of pulmonary embolism 04/25/2016 01/01/2018 Neoplastic [...] FOLLOW-UP 10/27/2012 Overview: 32 yo female from [place], [place]. Family involved with care, at bedside. plan to discharge patient home - will arrange with case management for post op care as needed - follow up in OPD in 7-10 days Post-op pain 10/27/2012 12/26/2015 Overview: currently well controlled with [employer]. will start PO pain meds today 10/27. tolerating percocet, pain relatively well controlled. Hodgkin's disease with nodular sclerosis 05/27/2012 12/26/2015 Overview: Oncology history (per Dr. 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 Hodgkin's disease, unspecified 02/05/2012 05/11/2014 Vaginal bleeding 12/26/2015 Overview: --likely from thrombocytopenia. No menses in prior 8 months. Scant amount reported on 03/29 and 03/30, now resolved --monitor bleeding by counting pads --should f/u with her [employer] provider after BMT Premature menopause 12/26/19 16 Postmenopausal atrophic vaginitis 12/26/2015 Dyspareunia 12/26/2015 documented as of this encounter (statuses as of 10/10/2022) [facility] Past [facility] Narrative* Problem Noted Date Diagnosed Date Resolved Date Menorrhagia with regular cycle 03/15/2017 01/01/2018 Overview: Added automatically from request for surgery [id number] History of pulmonary embolism 04/25/2016 01/01/2018 Neoplastic [...] FOLLOW-UP 10/27/2012 Overview: 32 yo female from [place]. Family involved with care, at bedside. plan to discharge patient home - will arrange with case management for post op care as needed - follow up in OPD in 7-10 days Post-op pain 10/27/2012 12/26/2015 Overview: currently well controlled with [employer]. will start PO pain meds today 10/27. tolerating percocet, pain relatively well controlled. Hodgkin's disease with nodular sclerosis 05/27/2012 12/26/2015 Overview: Oncology history (per Dr. 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 Hodgkin's disease, unspecified 02/05/2012 05/11/2014 Vaginal bleeding 12/26/2015 Overview: --likely from thrombocytopenia. No menses in prior 8 months. Scant amount reported on 03/29 and 03/30, now resolved --monitor bleeding by counting pads --should f/u with her [facility] provider after BMT Premature menopause 12/26/19 16 Postmenopausal atrophic vaginitis 12/26/2015 Dyspareunia 12/26/2015 documented as of this encounter (statuses as of 10/10/2022) [facility] History of Past illness Narrative* Problem Noted Date Diagnosed Date Resolved Date Menorrhagia with regular cycle 03/15/2017 01/01/2018 Overview: Added automatically from request for surgery [id number] History of pulmonary embolism 04/25/2016 01/01/2018 Neoplastic [...] FOLLOW-UP 10/27/2012 Overview: 32 yo female from [place], [place]. Family involved with care, at bedside. plan to discharge patient home - will arrange with case management for post op care as needed - follow up in OPD in 7-10 days Post-op pain 10/27/2012 12/26/2015 Overview: currently well controlled with [employer]. will start PO pain meds today 10/27. tolerating percocet, pain relatively well controlled. Hodgkin's disease with nodular sclerosis 05/27/2012 12/26/2015 Overview: Oncology history (per Dr. 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 Hodgkin's disease, unspecified 02/05/2012 05/11/2014 Vaginal bleeding 12/26/2015 Overview: --likely from thrombocytopenia. No menses in prior 8 months. Scant amount reported on 03/29 and 03/30, now resolved --monitor bleeding by counting pads --should f/u with her [facility] provider after BMT Premature menopause 12/26/19 16 Postmenopausal atrophic vaginitis 12/26/2015 Dyspareunia 12/26/2015 documented as of this encounter (statuses as of 10/18/2022) [facility] History of Past illness Narrative* Problem Noted Date Diagnosed Date Resolved Date Menorrhagia with regular cycle 03/15/2017 01/01/2018 Overview: Added automatically from request for surgery [id number] History of pulmonary embolism 04/25/2016 01/01/2018 Neoplastic [...] FOLLOW-UP 10/27/2012 Overview: 32 yo female from [place]. Family involved with care, at bedside. plan to discharge patient home - will arrange with case management for post op care as needed - follow up in OPD in 7-10 days Post-op pain 10/27/2012 12/26/2015 Overview: currently well controlled with [employer]. will start PO pain meds today 10/27. tolerating percocet, pain relatively well controlled. Hodgkin's disease with nodular sclerosis 05/27/2012 12/26/2015 Overview: Oncology history (per Dr. 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 Hodgkin's disease, unspecified 02/05/2012 05/11/2014 Vaginal bleeding 12/26/2015 Overview: --likely from thrombocytopenia. No menses in prior 8 months. Scant amount reported on 03/29 and 03/30, now resolved --monitor bleeding by counting pads --should f/u with her [facility] provider after BMT Premature menopause 12/26/19 16 Postmenopausal atrophic vaginitis 12/26/2015 Dyspareunia 12/26/2015 documented as of this encounter (statuses as of 10/18/2022) [facility] History of Past illness Narrative* Problem Noted Date Diagnosed Date Resolved Date Menorrhagia with regular cycle 03/15/2017 01/01/2018 Overview: Added automatically from request for surgery [id number] History of pulmonary embolism 04/25/2016 01/01/2018 Neoplastic [...] FOLLOW-UP 10/27/2012 Overview: 32 yo female from [place]. Family involved with care, at bedside. plan to discharge patient home - will arrange with case management for post op care as needed - follow up in OPD in 7-10 days Post-op pain 10/27/2012 12/26/2015 Overview: currently well controlled with [employer]. will start PO pain meds today 10/27. tolerating percocet, pain relatively well controlled. Hodgkin's disease with nodular sclerosis 05/27/2012 12/26/2015 Overview: Oncology history (per Dr. 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 Hodgkin's disease, unspecified 02/05/2012 05/11/2014 Vaginal bleeding 12/26/2015 Overview: --likely from thrombocytopenia. No menses in prior 8 months. Scant amount reported on 03/29 and 03/30, now resolved --monitor bleeding by counting pads --should f/u with her [facility] provider after BMT Premature menopause 12/26/19 16 Postmenopausal atrophic vaginitis 12/26/2015 Dyspareunia 12/26/2015 documented as of this encounter (statuses as of 10/19/2022) [facility] History of Past illness Narrative* Problem Noted Date Diagnosed Date Resolved Date Menorrhagia with regular cycle 03/15/2017 01/01/2018 Overview: Added automatically from request for surgery [id number] History of pulmonary embolism 04/25/2016 01/01/2018 Neoplastic [...] FOLLOW-UP 10/27/2012 Overview: 32 yo female from [place]. Family involved with care, at bedside. plan to discharge patient home - will arrange with case management for post op care as needed - follow up in OPD in 7-10 days Post-op pain 10/27/2012 12/26/2015 Overview: currently well controlled with [employer]. will start PO pain meds today 10/27. tolerating percocet, pain relatively well controlled. Hodgkin's disease with nodular sclerosis 05/27/2012 12/26/2015 Overview: Oncology history (per Dr. 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 Hodgkin's disease, unspecified 02/05/2012 05/11/2014 Vaginal bleeding 12/26/2015 Overview: --likely from thrombocytopenia. No menses in prior 8 months. Scant amount reported on 03/29 and 03/30, now resolved --monitor bleeding by counting pads --should f/u with her [facility] provider after BMT Premature menopause 12/26/19 16 Postmenopausal atrophic vaginitis 12/26/2015 Dyspareunia 12/26/2015 documented as of this encounter (statuses as of 10/24/2022) [facility] History of Past illness Narrative* Problem Noted Date Diagnosed Date Resolved Date Menorrhagia with regular cycle 03/15/2017 01/01/2018 Overview: Added automatically from request for surgery [id number] History of pulmonary embolism 04/25/2016 01/01/2018 Neoplastic [...] FOLLOW-UP 10/27/2012 Overview: 32 yo female from [place]. Family involved with care, at bedside. plan to discharge patient home - will arrange with case management for post op care as needed - follow up in OPD in 7-10 days Post-op pain 10/27/2012 12/26/2015 Overview: currently well controlled with [employer]. will start PO pain meds today 10/27. tolerating percocet, pain relatively well controlled. Hodgkin's disease with nodular sclerosis 05/27/2012 12/26/2015 Overview: Oncology history (per Dr. 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 Hodgkin's disease, unspecified 02/05/2012 05/11/2014 Vaginal bleeding 12/26/2015 Overview: --likely from thrombocytopenia. No menses in prior 8 months. Scant amount reported on 03/29 and 03/30, now resolved --monitor bleeding by counting pads --should f/u with her [facility] provider after BMT Premature menopause 12/26/19 16 Postmenopausal atrophic vaginitis 12/26/2015 Dyspareunia 12/26/2015 documented as of this encounter (statuses as of 10/26/2022) [facility] History of Past illness Narrative* Problem Noted Date Diagnosed Date Resolved Date Menorrhagia with regular cycle 03/15/2017 01/01/2018 Overview: Added automatically from request for surgery [id number] History of pulmonary embolism 04/25/2016 01/01/2018 Neoplastic [...] FOLLOW-UP 10/27/2012 Overview: 32 yo female from [place]. Family involved with care, at bedside. plan to discharge patient home - will arrange with case management for post op care as needed - follow up in OPD in 7-10 days Post-op pain 10/27/2012 12/26/2015 Overview: currently well controlled with [employer]. will start PO pain meds today 10/27. tolerating percocet, pain relatively well controlled. Hodgkin's disease with nodular sclerosis 05/27/2012 12/26/2015 Overview: Oncology history (per Dr. 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 Hodgkin's disease, unspecified 02/05/2012 05/11/2014 Vaginal bleeding 12/26/2015 Overview: --likely from thrombocytopenia. No menses in prior 8 months. Scant amount reported on 03/29 and 03/30, now resolved --monitor bleeding by counting pads --should f/u with her [facility] [employer] provider after BMT Premature menopause 12/26/19 16 Postmenopausal atrophic vaginitis 12/26/2015 Dyspareunia 12/26/2015 documented as of this encounter (statuses as of 11/06/2022) [facility] History of Past illness Narrative* Problem Noted Date Diagnosed Date Resolved Date Menorrhagia with regular cycle 03/15/2017 01/01/2018 Overview: Added automatically from request for surgery [id number] History of pulmonary embolism 04/25/2016 01/01/2018 Neoplastic [...] FOLLOW-UP 10/27/2012 Overview: 32 yo female from [place]. Family involved with care, at bedside. plan to discharge patient home - will arrange with case management for post op care as needed - follow up in OPD in 7-10 days Post-op pain 10/27/2012 12/26/2015 Overview: currently well controlled with [employer]. will start PO pain meds today 10/27. tolerating percocet, pain relatively well controlled. Hodgkin's disease with nodular sclerosis 05/27/2012 12/26/2015 Overview: Oncology history (per Dr. 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 Hodgkin's disease, unspecified 02/05/2012 05/11/2014 Vaginal bleeding 12/26/2015 Overview: --likely from thrombocytopenia. No menses in prior 8 months. Scant amount reported on 03/29 and 03/30, now resolved --monitor bleeding by counting pads --should f/u with her [facility] provider after BMT Premature menopause 12/26/19 16 Postmenopausal atrophic vaginitis 12/26/2015 Dyspareunia 12/26/2015 documented as of this encounter (statuses as of 11/11/2022) [facility] History of Past illness Narrative* Problem Noted Date Diagnosed Date Resolved Date Menorrhagia with regular cycle 03/15/2017 01/01/2018 Overview: Added automatically from request for surgery [id number] History of pulmonary embolism 04/25/2016 01/01/2018 Neoplastic [...] FOLLOW-UP 10/27/2012 Overview: 32 yo female from [place]. Family involved with care, at bedside. plan to discharge patient home - will arrange with case management for post op care as needed - follow up in OPD in 7-10 days Post-op pain 10/27/2012 12/26/2015 Overview: currently well controlled with [employer]. will start PO pain meds today 10/27. tolerating percocet, pain relatively well controlled. Hodgkin's disease with nodular sclerosis 05/27/2012 12/26/2015 Overview: Oncology history (per Dr. 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 Hodgkin's disease, unspecified 02/05/2012 05/11/2014 Vaginal bleeding 12/26/2015 Overview: --likely from thrombocytopenia. No menses in prior 8 months. Scant amount reported on 03/29 and 03/30, now resolved --monitor bleeding by counting pads --should f/u with her [facility] [facility] provider after BMT Premature menopause 12/26/19 16 Postmenopausal atrophic vaginitis 12/26/2015 Dyspareunia 12/26/2015 documented as of this encounter (statuses as of 11/13/2022) [facility] History of Past illness Narrative* Problem Noted Date Diagnosed Date Resolved Date Menorrhagia with regular cycle 03/15/2017 01/01/2018 Overview: Added automatically from request for surgery [id number] History of pulmonary embolism 04/25/2016 01/01/2018 Neoplastic [...] FOLLOW-UP 10/27/2012 Overview: 32 yo female from [place]. Family involved with care, at bedside. plan to discharge patient home - will arrange with case management for post op care as needed - follow up in OPD in 7-10 days Post-op pain 10/27/2012 12/26/2015 Overview: currently well controlled with [employer]. will start PO pain meds today 10/27. tolerating percocet, pain relatively well controlled. Hodgkin's disease with nodular sclerosis 05/27/2012 12/26/2015 Overview: Oncology history (per Dr. 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 Hodgkin's disease, unspecified 02/05/2012 05/11/2014 Vaginal bleeding 12/26/2015 Overview: --likely from thrombocytopenia. No menses in prior 8 months. Scant amount reported on 03/29 and 03/30, now resolved --monitor bleeding by counting pads --should f/u with her [facility] [facility] provider after BMT Premature menopause 12/26/19 16 Postmenopausal atrophic vaginitis 12/26/2015 Dyspareunia 12/26/2015 documented as of this encounter (statuses as of 11/26/2022) [facility] History of Past illness Narrative* Problem Noted Date Diagnosed Date Resolved Date Menorrhagia with regular cycle 03/15/2017 01/01/2018 Overview: Added automatically from request for surgery [id number] History of pulmonary embolism 04/25/2016 01/01/2018 Neoplastic [...] FOLLOW-UP 10/27/2012 Overview: 32 yo female from [place]. Family involved with care, at bedside. plan to discharge patient home - will arrange with case management for post op care as needed - follow up in OPD in 7-10 days Post-op pain 10/27/2012 12/26/2015 Overview: currently well controlled with [employer]. will start PO pain meds today 10/27. tolerating percocet, pain relatively well controlled. Hodgkin's disease with nodular sclerosis 05/27/2012 12/26/2015 Overview: Oncology history (per Dr. 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 Hodgkin's disease, unspecified 02/05/2012 05/11/2014 Vaginal bleeding 12/26/2015 Overview: --likely from thrombocytopenia. No menses in prior 8 months. Scant amount reported on 03/29 and 03/30, now resolved --monitor bleeding by counting pads --should f/u with her [facility] provider after BMT Premature menopause 12/26/19 16 Postmenopausal atrophic vaginitis 12/26/2015 Dyspareunia 12/26/2015 documented as of this encounter (statuses as of 12/04/2022) [facility] History of Past illness Narrative* Problem Noted Date Diagnosed Date Resolved Date Menorrhagia with regular cycle 03/15/2017 01/01/2018 Overview: Added automatically from request for surgery [id number] History of pulmonary embolism 04/25/2016 01/01/2018 Neoplastic [...] FOLLOW-UP 10/27/2012 Overview: 32 yo female from [place]. Family involved with care, at bedside. plan to discharge patient home - will arrange with case management for post op care as needed - follow up in OPD in 7-10 days Post-op pain 10/27/2012 12/26/2015 Overview: currently well controlled with [employer]. will start PO pain meds today 10/27. tolerating percocet, pain relatively well controlled. Hodgkin's disease with nodular sclerosis 05/27/2012 12/26/2015 Overview: Oncology history (per Dr. 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 Hodgkin's disease, unspecified 02/05/2012 05/11/2014 Vaginal bleeding 12/26/2015 Overview: --likely from thrombocytopenia. No menses in prior 8 months. Scant amount reported on 03/29 and 03/30, now resolved --monitor bleeding by counting pads --should f/u with her [facility] provider after BMT Premature menopause 12/26/19 16 Postmenopausal atrophic vaginitis 12/26/2015 Dyspareunia 12/26/2015 documented as of this encounter (statuses as of 12/18/2022) [facility] Past illness Narrative* Problem Noted Date Diagnosed Date Resolved Date Menorrhagia with regular cycle 03/15/2017 01/01/2018 Overview: Added automatically from request for surgery [id number] History of pulmonary embolism 04/25/2016 01/01/2018 Neoplastic [...] FOLLOW-UP 10/27/2012 Overview: 32 yo female from [place]. Family involved with care, at bedside. plan to discharge patient home - will arrange with case management for post op care as needed - follow up in OPD in 7-10 days Post-op pain 10/27/2012 12/26/2015 Overview: currently well controlled with [employer]. will start PO pain meds today 10/27. tolerating percocet, pain relatively well controlled. Hodgkin's disease with nodular sclerosis 05/27/2012 12/26/2015 Overview: Oncology history (per Dr. 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 Hodgkin's disease, unspecified 02/05/2012 05/11/2014 Vaginal bleeding 12/26/2015 Overview: --likely from thrombocytopenia. No menses in prior 8 months. Scant amount reported on 03/29 and 03/30, now resolved --monitor bleeding by counting pads --should f/u with her [employer] provider after BMT Premature menopause 12/26/19 16 Postmenopausal atrophic vaginitis 12/26/2015 Dyspareunia 12/26/2015 documented as of this encounter (statuses as of 12/31/2022) [facility] Past [facility] Narrative* Problem Noted Date Diagnosed Date Resolved Date Menorrhagia with regular cycle 03/15/2017 01/01/2018 Overview: Added automatically from request for surgery [id number] History of pulmonary embolism 04/25/2016 01/01/2018 Neoplastic [...] FOLLOW-UP 10/27/2012 Overview: 32 yo female from [place]. Family involved with care, at bedside. plan to discharge patient home - will arrange with case management for post op care as needed - follow up in OPD in 7-10 days Post-op pain 10/27/2012 12/26/2015 Overview: currently well controlled with [employer]. will start PO pain meds today 10/27. tolerating percocet, pain relatively well controlled. Hodgkin's disease with nodular sclerosis 05/27/2012 12/26/2015 Overview: Oncology history (per Dr. 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 Hodgkin's disease, unspecified 02/05/2012 05/11/2014 Vaginal bleeding 12/26/2015 Overview: --likely from thrombocytopenia. No menses in prior 8 months. Scant amount reported on 03/29 and 03/30, now resolved --monitor bleeding by counting pads --should f/u with her [employer] provider after BMT Premature menopause 12/26/19 16 Postmenopausal atrophic vaginitis 12/26/2015 Dyspareunia 12/26/2015 documented as of this encounter (statuses as of 01/03/2023) [facility] Past [facility] Narrative* Problem Noted Date Diagnosed Date Resolved Date Menorrhagia with regular cycle 03/15/2017 01/01/2018 Overview: Added automatically from request for surgery [id number] History of pulmonary embolism 04/25/2016 01/01/2018 Neoplastic [...] FOLLOW-UP 10/27/2012 Overview: 32 yo female from [place]. Family involved with care, at bedside. plan to discharge patient home - will arrange with case management for post op care as needed - follow up in OPD in 7-10 days Post-op pain 10/27/2012 12/26/2015 Overview: currently well controlled with [employer]. will start PO pain meds today 10/27. tolerating percocet, pain relatively well controlled. Hodgkin's disease with nodular sclerosis 05/27/2012 12/26/2015 Overview: Oncology history (per Dr. 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 Hodgkin's disease, unspecified 02/05/2012 05/11/2014 Vaginal bleeding 12/26/2015 Overview: --likely from thrombocytopenia. No menses in prior 8 months. Scant amount reported on 03/29 and 03/30, now resolved --monitor bleeding by counting pads --should f/u with her [employer] [facility] provider after BMT Premature menopause 12/26/19 16 Postmenopausal atrophic vaginitis 12/26/2015 Dyspareunia 12/26/2015 documented as of this encounter (statuses as of 01/03/2023) [facility] Past [facility] Narrative* Problem Noted Date Diagnosed Date Resolved Date Menorrhagia with regular cycle 03/15/2017 01/01/2018 Overview: Added automatically from request for surgery [id number] History of pulmonary embolism 04/25/2016 01/01/2018 Neoplastic [...] FOLLOW-UP 10/27/2012 Overview: 32 yo female from [place]. Family involved with care, at bedside. plan to discharge patient home - will arrange with case management for post op care as needed - follow up in OPD in 7-10 days Post-op pain 10/27/2012 12/26/2015 Overview: currently well controlled with [employer]. will start PO pain meds today 10/27. tolerating percocet, pain relatively well controlled. Hodgkin's disease with nodular sclerosis 05/27/2012 12/26/2015 Overview: Oncology history (per Dr. 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 Hodgkin's disease, unspecified 02/05/2012 05/11/2014 Vaginal bleeding 12/26/2015 Overview: --likely from thrombocytopenia. No menses in prior 8 months. Scant amount reported on 03/29 and 03/30, now resolved --monitor bleeding by counting pads --should f/u with her [facility] provider after BMT Premature menopause 12/26/19 16 Postmenopausal atrophic vaginitis 12/26/2015 Dyspareunia 12/26/2015 documented as of this encounter (statuses as of 01/07/2023) [facility] History of Past illness Narrative* Problem Noted Date Diagnosed Date Resolved Date Menorrhagia with regular cycle 03/15/2017 01/01/2018 Overview: Added automatically from request for surgery [id number] History of pulmonary embolism 04/25/2016 01/01/2018 Neoplastic [...] FOLLOW-UP 10/27/2012 Overview: 32 yo female from [place], [place]. Family involved with care, at bedside. plan to discharge patient home - will arrange with case management for post op care as needed - follow up in OPD in 7-10 days Post-op pain 10/27/2012 12/26/2015 Overview: currently well controlled with [employer]. will start PO pain meds today 10/27. tolerating percocet, pain relatively well controlled. Hodgkin's disease with nodular sclerosis 05/27/2012 12/26/2015 Overview: Oncology history (per Dr. 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 Hodgkin's disease, unspecified 02/05/2012 05/11/2014 Vaginal bleeding 12/26/2015 Overview: --likely from thrombocytopenia. No menses in prior 8 months. 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, 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) 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 [facility] En[facility] for palliative care- Primary 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) Cancer related pain Neoplasm related pain (acute) (chronic) Chemotherapy-induced neuropathy (HCC) 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 Muscle cramps Cramp of limb Anxiety Anxiety state, unspecified [facility] 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 [facility] Diagnosis Nodular sclerosing Hodgkin's lymphoma, 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) 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 [facility] Diagnosis Sinus congestion- Primary Other diseases of nasal cavity and sinuses Nodular sclerosing Hodgkin's lymphoma, unspecified body region (HCC) [facility] Diagnosis Muscle cramps Cramp of limb Nodular sclerosing Hodgkin's lymphoma, unspecified body region (HCC) [facility] Diagnosis Hodgkin lymphoma, unspecified Hodgkin lymphoma type, unspecified body region (HCC)- Primary 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) [facility] Diagnosis 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 Encounter for antineoplastic immunotherapy [facility] Diagnosis 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 Cancer related pain Neoplasm related pain (acute) (chronic) Encounter for palliative care [facility] Diagnosis 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) Nausea Nausea alone [facility] Diagnosis Simple chronic bronchitis (HCC)- Primary Simple chronic bronchitis Restrictive lung disease Other diseases of lung, not elsewhere classified [facility] Diagnosis 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 [facility] Diagnosis 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) Nausea Nausea alone [facility] Diagnosis Muscle cramps Cramp of limb Nodular sclerosing Hodgkin's lymphoma, 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) 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 [facility] Diagnosis 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 Cancer related pain Neoplasm related pain (acute) (chronic) Encounter for palliative care [facility] Diagnosis 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 [facility] Diagnosis Hidradenitis suppurativa- Primary Hidradenitis Painful skin lesion [facility]* Diagnosis Muscle cramps Cramp of limb Nodular sclerosis classical Hodgkin lymphoma (HCC) Hodgkin's disease, nodular sclerosis, unspecified site, extranodal and solid organ sites [facility] Diagnosis 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 Cancer related pain Neoplasm related pain (acute) (chronic) Encounter for palliative care documented [facility] Other Evaluation [facility]* Diagnosis 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 documented in this encounter [facility] note* Diagnosis 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 [facility] [place] [facility]* Diagnosis Muscle cramps Cramp of limb Nodular sclerosis classical Hodgkin lymphoma (HCC) Hodgkin's disease, nodular sclerosis, unspecified site, extranodal and solid organ sites [facility] [place] [facility]* Diagnosis Muscle cramps Cramp of limb Nodular sclerosing Hodgkin's lymphoma, unspecified body region (HCC) [facility] [place] [facility]* Diagnosis 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) Nausea Nausea alone documented in this encounter [facility] note* Diagnosis Hidradenitis suppurativa- Primary Hidradenitis Painful skin lesion Dermatofibroma of left knee [facility] [place] [facility]* Diagnosis 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 [facility] [place] [facility]* Diagnosis Nodular sclerosing Hodgkin's lymphoma, 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) 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 [facility] [place] [facility]* Diagnosis Simple chronic bronchitis (HCC) Simple chronic bronchitis [facility] [place] [facility]* Diagnosis Muscle cramps Cramp of limb Nodular sclerosing Hodgkin's lymphoma, unspecified body region (HCC) [facility] [place] [facility]* Diagnosis 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 Cancer related pain Neoplasm related pain (acute) (chronic) Encounter for palliative care documented in this encounter [facility] note* Diagnosis 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 [facility] [place] [facility]* Diagnosis Nodular sclerosing Hodgkin's lymphoma, unspecified body region (HCC)- Primary Encounter for antineoplastic immunotherapy [facility] Diagnosis 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 Encounter for antineoplastic immunotherapy [facility] [place] [facility]* Diagnosis Encounter for palliative care- Primary 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) Muscle cramps Cramp of limb [facility] [place] [facility]* Diagnosis Muscle cramps Cramp of limb Nodular sclerosis classical Hodgkin lymphoma (HCC) Hodgkin's disease, nodular sclerosis, unspecified site, extranodal and solid organ sites [facility] [place] [facility]* Diagnosis Muscle cramps Cramp of limb Nodular sclerosing Hodgkin's lymphoma, unspecified body region (HCC) [facility] [place] [facility]* Diagnosis 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 [facility] [place] [facility]* Diagnosis Nodular sclerosing Hodgkin's lymphoma, unspecified body region (HCC)- Primary [facility] [place] [facility]* Diagnosis Nodular sclerosing Hodgkin's lymphoma, unspecified body region (HCC)- Primary History of pulmonary embolism Personal history of pulmonary embolism Chemotherapy-induced neuropathy (HCC) 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 Muscle cramps Cramp of limb [facility] [place] [facility]* Diagnosis 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 [facility] Diagnosis History of pulmonary embolism Personal history of pulmonary embolism [facility] [place] [facility]* Diagnosis 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 Nausea Nausea alone [facility] [place] [facility]* Diagnosis 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 [facility] [place] [facility]* Diagnosis Acne vulgaris- Primary Other acne [facility] Diagnosis Nodular sclerosing Hodgkin's lymphoma, 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) 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 [facility] Diagnosis 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 Encounter for antineoplastic immunotherapy Encounter for long-term (current) use of medications Encounter for long-term (current) use of other medications [facility] Diagnosis Nodular sclerosing Hodgkin's lymphoma, unspecified body region (HCC)- Primary BAEZ (dyspnea on exertion) Other dyspnea and respiratory abnormality Chronic cough Cough Chest tightness Other chest pain [facility] Diagnosis Muscle cramps Cramp of limb Nodular sclerosing Hodgkin's lymphoma, unspecified body region (HCC) [facility] Diagnosis 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 Cancer related pain Neoplasm related pain (acute) (chronic) Encounter for palliative care [facility] [place] [facility]* Diagnosis 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 [facility] Diagnosis Nodular sclerosing Hodgkin's lymphoma, 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) 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 [facility] Diagnosis Muscle cramps Cramp of limb Nodular sclerosis classical Hodgkin lymphoma (HCC) Hodgkin's disease, nodular sclerosis, unspecified site, extranodal and solid organ sites [facility] Diagnosis Encounter for palliative care- Primary Opioid use agreement exists Encounters for other specified administrative purpose Anxiety Anxiety state, unspecified Cancer related pain Neoplasm related pain (acute) (chronic) 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) Muscle cramps Cramp of limb [facility] Diagnosis 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 Encounter for antineoplastic immunotherapy [facility] Diagnosis History of pulmonary embolism Personal history of pulmonary embolism [facility]* Diagnosis 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) Nausea Nausea alone Chemotherapy-induced neuropathy (HCC) 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 [facility] Diagnosis 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 [facility] Diagnosis 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 Cancer related pain Neoplasm related pain (acute) (chronic) Encounter for palliative care Muscle cramps Cramp of limb Nodular sclerosis classical Hodgkin lymphoma (HCC) Hodgkin's disease, nodular sclerosis, unspecified site, extranodal and solid organ sites [facility] Diagnosis Muscle cramps Cramp of limb Nodular sclerosing Hodgkin's lymphoma, 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) 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 [facility] Diagnosis 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 [facility] Diagnosis 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 [facility] Diagnosis 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 [facility] Diagnosis 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 marrow replaced by transplant [facility] Diagnosis 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 Encounter for long-term (current) use of medications Encounter for long-term (current) use of other medications Encounter for antineoplastic immunotherapy [facility] Diagnosis 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 Cancer related pain Neoplasm related pain (acute) (chronic) Encounter for palliative care Muscle cramps Cramp of limb Nodular sclerosis classical Hodgkin lymphoma (HCC) Hodgkin's disease, nodular sclerosis, unspecified site, extranodal and solid organ sites [facility] Diagnosis Muscle cramps Cramp of limb Nodular sclerosing Hodgkin's lymphoma, 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) 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 [facility] Diagnosis Encounter for palliative care- Primary 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 Cancer related pain Neoplasm related pain (acute) (chronic) Muscle cramps Cramp of limb Opioid use agreement exists Encounters for other specified administrative purpose [facility] [place] [facility]* Diagnosis 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 [facility] [place] [facility]* Diagnosis Nodular sclerosing Hodgkin's lymphoma, 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) 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 [facility] [place] [facility]* Diagnosis NO SHOW- Primary [facility] [place] [facility]* Diagnosis 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 Uterine leiomyoma, unspecified location [facility] [place] [facility]* Diagnosis Muscle cramps Cramp of limb Nodular sclerosis classical Hodgkin lymphoma (HCC) Hodgkin's disease, nodular sclerosis, unspecified site, extranodal and solid organ sites 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 Cancer related pain Neoplasm related pain (acute) (chronic) Encounter for palliative care [facility] [place] [facility]* Diagnosis Dyspnea on exertion- Primary Other dyspnea and respiratory abnormality [facility] [place] [facility]* Diagnosis 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 Cancer related pain Neoplasm related pain (acute) (chronic) Encounter for palliative care [facility] [place] [facility] Diagnosis Nodular sclerosing Hodgkin's lymphoma, unspecified body region (HCC)- Primary [facility] [place] [facility]* Diagnosis Palliative care by specialist- Primary Opioid use agreement exists Encounters for other specified administrative purpose Cancer related pain Neoplasm related pain (acute) (chronic) 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) Muscle cramps Cramp of limb [facility] [place] [facility]* Diagnosis Nodular sclerosing Hodgkin's lymphoma, 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) 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 [facility] [place] [facility]* Diagnosis Chronic cough- Primary Cough Productive cough Cough Dyspnea on exertion Other dyspnea and respiratory abnormality Opacity of lung on imaging study [facility] Diagnosis Bronchitis- Primary Bronchitis, not specified as acute or chronic Chronic cough Cough [facility]* Diagnosis Muscle cramps Cramp of limb Nodular sclerosing Hodgkin's lymphoma, unspecified body region (HCC) [facility] Diagnosis Muscle cramps Cramp of limb Nodular sclerosing Hodgkin's lymphoma, unspecified body region (HCC) [facility]* Diagnosis 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 Cancer related pain Neoplasm related pain (acute) (chronic) Encounter for palliative care [facility] Diagnosis 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 [facility]* Diagnosis 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 [facility]* Diagnosis Nodular sclerosing Hodgkin's lymphoma, 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) 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 [facility]* Diagnosis Nodular sclerosing Hodgkin's lymphoma, 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) 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 [facility]* Diagnosis Restrictive lung disease- Primary Other diseases of lung, not elsewhere classified 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 Chronic cough Cough History of pulmonary embolism Personal history of pulmonary embolism [facility] Diagnosis Acute cough [facility] Diagnosis Muscle cramps Cramp of limb Nodular sclerosis classical Hodgkin lymphoma (HCC) Hodgkin's disease, nodular sclerosis, unspecified site, extranodal and solid organ sites [facility]* Diagnosis Muscle cramps Cramp of limb Nodular sclerosing Hodgkin's lymphoma, unspecified body region (HCC) [facility]* Diagnosis 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 Cancer related pain Neoplasm related pain (acute) (chronic) Encounter for palliative care [facility] [place] [facility]* Diagnosis Nodular sclerosing Hodgkin's lymphoma, 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) 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 [facility] Diagnosis Nodular sclerosing Hodgkin's lymphoma, 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) 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 [facility] Diagnosis Hidradenitis suppurativa- Primary Hidradenitis Painful skin lesion [facility] [place] [facility]* Diagnosis Palliative care by specialist- Primary Nodular sclerosing Hodgkin's lymphoma, unspecified body region (HCC) Cancer related pain Neoplasm related pain (acute) (chronic) Opioid use agreement exists Encounters for other specified administrative purpose Muscle cramps Cramp of limb [facility] [place] [facility] Diagnosis 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 (HCC) Nausea Nausea alone [facility] [place] [facility]* Diagnosis 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 Cancer related pain Neoplasm related pain (acute) (chronic) Encounter for palliative care [facility] Diagnosis Nodular sclerosing Hodgkin's lymphoma, 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) 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 [facility] [place] [facility]* Diagnosis History of pulmonary embolism Personal history of pulmonary embolism [facility] Diagnosis Muscle cramps Cramp of limb Nodular sclerosing Hodgkin's lymphoma, unspecified body region (HCC) [facility] [place] [facility]* Diagnosis Nodular sclerosis Hodgkin lymphoma of [...] hypothyroidism Unspecified hypothyroidism [facility] [place] [facility]* Diagnosis Muscle cramps Cramp of limb Nodular sclerosing Hodgkin's lymphoma, 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 Cancer related pain Neoplasm related pain (acute) (chronic) Encounter for palliative care [facility] [place] [facility]* Diagnosis 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 [facility] [place] noteNo assessment information availableMer[facility] Work Phone: Evaluation note* Diagnosis Chronic cough [facility]ough [facility] [place] [facility]* Diagnosis Bronchitis Bronchitis, not specified as acute or chronic [facility] [place] [facility]* Diagnosis Restrictive lung disease- Primary Other diseases of lung, not elsewhere classified Chronic cough Cough Post-nasal drip Postnasal drip Hoarseness Dysphonia Dysphagia, unspecified type History of pulmonary embolism Personal history of pulmonary embolism [facility] [place] [facility]* Diagnosis Bronchitis, not specified as acute or chronic- Primary Chronic cough Cough [facility] [place] [facility]* Diagnosis COVID-19- Primary documented in this encounter [facility]* Diagnosis COVID-19 documented in this encounter [facility]* Diagnosis 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 [facility] [place] [facility]* Diagnosis 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 Cancer related pain Neoplasm related pain (acute) (chronic) Encounter for palliative care Muscle cramps Cramp of limb Nodular sclerosing Hodgkin's lymphoma, unspecified body region (HCC) [facility] [place] [facility]* Diagnosis 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 Restrictive lung disease Other diseases of lung, not elsewhere classified Malaise and fatigue Other malaise and fatigue [facility] [place] [facility]* Diagnosis Influenza with pneumonia- Primary Restrictive lung disease Other diseases of lung, not elsewhere classified Hospital discharge follow-up Other follow-up examination [facility] Influenza with pneumonia [facility] Diagnosis Muscle cramps Cramp of limb Nodular sclerosis classical Hodgkin lymphoma (HCC) Hodgkin's disease, nodular sclerosis, unspecified site, extranodal and solid organ sites [facility] Diagnosis 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 Cancer related pain Neoplasm related pain (acute) (chronic) Encounter for palliative care [facility] Diagnosis Dyspnea on exertion Other dyspnea and respiratory abnormality [facility]* Diagnosis Dysphagia, unspecified type Hoarseness Dysphonia Gastroesophageal reflux disease, unspecified whether esophagitis present LPRD (laryngopharyngeal reflux disease) Other diseases of larynx [facility]* Diagnosis Dyspnea on exertion Other dyspnea and respiratory abnormality [facility]* Diagnosis Restrictive lung disease- Primary Other diseases of lung, not elsewhere classified Wheezing [facility]* Diagnosis Wheezing [facility]* Diagnosis 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 Cancer related pain Neoplasm related pain (acute) (chronic) Encounter for palliative care [facility] Diagnosis 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 Restrictive lung disease Other diseases of lung, not elsewhere classified Malaise and fatigue Other malaise and fatigue [facility]* Diagnosis Bronchitis- Primary Bronchitis, not specified as acute or chronic Acute non-recurrent pansinusitis Oral thrush Candidiasis of mouth Restrictive lung disease Other diseases of lung, not elsewhere classified Pleural effusion Unspecified pleural effusion [facility]* Diagnosis Pleural effusion, left- Primary Unspecified pleural effusion Pulmonary hypertension (HCC) Other chronic pulmonary heart diseases [facility]* Diagnosis Restrictive lung disease- Primary Other diseases of lung, not elsewhere classified History of pulmonary embolism Personal history of pulmonary embolism 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) Bronchiectasis without complication (HCC) Bronchiectasis without acute exacerbation Simple chronic bronchitis (HCC) Simple chronic bronchitis [facility] [place] [facility]* Diagnosis Dysphagia, unspecified type- Primary [facility] [place] [facility]* Diagnosis Dysphagia, unspecified type [facility] [place] [facility]* Diagnosis Encounter for palliative care- Primary Muscle cramps Cramp of limb Nodular sclerosing Hodgkin's lymphoma, unspecified body region (HCC) Arthritis pain Arthropathy, unspecified, site unspecified 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 Cancer related pain Neoplasm related pain (acute) (chronic) [facility] [place] [facility]* Diagnosis Dysphagia, unspecified type Gastroesophageal reflux disease, unspecified whether esophagitis present [facility] [place] [facility]* Diagnosis Pain- Primary Generalized pain [facility] [place] [facility]* Diagnosis Muscle cramps Cramp of limb Nodular sclerosing Hodgkin's lymphoma, 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 Cancer related pain Neoplasm related pain (acute) (chronic) Encounter for palliative care [facility] [place] [facility]* Diagnosis 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 Restrictive lung disease Other diseases of lung, not elsewhere classified Anxiety and depression Dysthymic disorder [facility] [place] [facility]* Diagnosis Pneumonia due to infectious organism, unspecified laterality, unspecified part of lung- Primary Pulmonary hypertension (HCC) Other chronic pulmonary heart diseases Hospital discharge follow-up Other follow-up examination [facility] [place] [facility]* Diagnosis Muscle cramps- Primary Cramp of limb Nodular sclerosing Hodgkin's lymphoma, 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 Encounter for palliative care Psoriatic arthritis (HCC) Psoriatic arthropathy Arthritis pain Arthropathy, unspecified, site unspecified Chronic nonmalignant pain Opioid use agreement exists Encounters for other specified administrative purpose [facility] [place] [facility]* Diagnosis Dyspnea on exertion Other dyspnea and respiratory abnormality [facility] [place] [facility]* Diagnosis Dyspnea on exertion Other dyspnea and respiratory abnormality Bronchitis Bronchitis, not specified as acute or chronic [facility] Diagnosis 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 Cancer related pain Neoplasm related pain (acute) (chronic) Encounter for palliative care [facility] [place] [facility]* Diagnosis Tendinitis, de Quervain's- Primary Radial styloid tenosynovitis [facility] [place] [facility]* Diagnosis Dysphagia, unspecified type Hoarseness Dysphonia LPRD (laryngopharyngeal reflux disease) Other diseases of larynx [facility] [place] [facility]* Diagnosis Encounter for palliative care- Primary Muscle cramps Cramp of limb Nodular sclerosing Hodgkin's lymphoma, unspecified body region (HCC) Opioid use agreement exists Encounters for other specified administrative purpose Chronic nonmalignant pain 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) Psoriatic arthritis (HCC) Psoriatic arthropathy [facility] [place] [facility]* Diagnosis Muscle cramps Cramp of limb Nodular sclerosis classical Hodgkin lymphoma (HCC) Hodgkin's disease, nodular sclerosis, unspecified site, extranodal and solid organ sites documented [facility] [place] [facility]* Diagnosis Muscle cramps Cramp of limb Nodular sclerosing Hodgkin's lymphoma, 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 Cancer related pain Neoplasm related pain (acute) (chronic) Encounter for palliative care [facility] Diagnosis Polyarthralgia- Primary Pain in joint, multiple sites Psoriasis Other psoriasis Polyarthralgia Pain in joint, multiple sites [facility] [place] [facility]* Diagnosis Polyarthralgia Pain in joint, multiple sites [facility]* Diagnosis Pulmonary hypertension (HCC)- Primary Other chronic pulmonary heart diseases [facility]* Diagnosis Encounter for palliative care- Primary 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 Cancer related pain Neoplasm related pain (acute) (chronic) Chronic pain syndrome [facility]* Diagnosis 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) [facility] Diagnosis 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 [facility] [place] [facility]* Diagnosis Nodular sclerosing Hodgkin's lymphoma, unspecified body region (HCC) [facility]* Diagnosis 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 Other pulmonary embolism without acute cor pulmonale, unspecified chronicity (HCC) Chemotherapy-induced neuropathy (HCC) 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 [facility] [place] [facility]* Diagnosis Nodular sclerosing Hodgkin's lymphoma, unspecified body region (HCC) [facility]* Diagnosis Nodular sclerosing Hodgkin's lymphoma, 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) [facility] [place] [facility]* Diagnosis Palliative care by specialist- Primary 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 Opioid use agreement exists Encounters for other specified administrative purpose Chronic pain syndrome [facility] Diagnosis Hodgkin lymphoma, unspecified Hodgkin lymphoma type, unspecified body region (HCC) 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) Drug toxicity Nonspecific abnormal toxicological findings Malaise and fatigue Other malaise and fatigue [facility]* Diagnosis Hodgkin lymphoma, unspecified Hodgkin lymphoma type, unspecified body region (HCC) [facility] Diagnosis Pneumonia due to infectious organism, unspecified laterality, unspecified part of lung- Primary Bronchiectasis without complication (HCC) Bronchiectasis without acute exacerbation Restrictive lung disease Other diseases of lung, not elsewhere classified Oropharyngeal dysphagia Dysphagia, oropharyngeal phase Voice impairment Voice and resonance disorder, unspecified Pneumonia due to infectious organism, unspecified laterality, unspecified part of lung [facility] Diagnosis Pneumonia of right upper lobe due to Streptococcus pneumoniae ([facility])- Primary Recurrent sinus infections Unspecified sinusitis (chronic) documented in this encounter [facility]* Diagnosis Pneumonia due to infectious organism, unspecified laterality, unspecified part of lung [facility] [place] [facility]* Diagnosis Multiple subsegmental pulmonary emboli without acute cor pulmonale ([facility])- Primary documented in this encounter [facility]* Diagnosis Major depressive disorder, single episode, mild (HCC) ([facility])- Primary Major depressive disorder, single episode, mild Anxiety Anxiety state, unspecified Primary insomnia Persistent disorder of initiating or maintaining sleep Restrictive lung disease Other diseases of lung, not elsewhere classified Mild intermittent asthma, unspecified whether complicated ([facility]) Acquired hypothyroidism ([facility]) Unspecified hypothyroidism Nodular sclerosing Hodgkin's lymphoma, unspecified body region ([facility]) Neuropathy Mononeuritis of unspecified site Daily headache documented in this encounter [facility]* Diagnosis Chronic rhinitis- Primary Recurrent sinus infections Unspecified sinusitis (chronic) documented in this encounter [facility]* Diagnosis Muscle cramps Cramp of limb Nodular sclerosing Hodgkin's lymphoma, unspecified body region (HCC) [facility] [place] [facility]* Diagnosis 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) [facility] [place] [facility]* Diagnosis 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) Opioid use agreement exists Encounters for other specified administrative purpose Chronic pain syndrome Palliative care by specialist [facility] [place] [facility]* Diagnosis Acute hypoxic respiratory failure (HCC)- Primary Pneumonia due to infectious organism, unspecified laterality, unspecified part of lung Restrictive lung disease Other diseases of lung, not elsewhere classified Bronchiectasis without complication (HCC) Bronchiectasis without acute exacerbation [facility] [place] [facility]* Diagnosis Acute hypoxic respiratory failure (HCC)- Primary Bronchiectasis without complication (HCC) Bronchiectasis without acute exacerbation Restrictive lung disease Other diseases of lung, not elsewhere classified [facility] [place] [facility]* Diagnosis Primary insomnia Persistent disorder of initiating or maintaining sleep documented in this encounter [facility]* Diagnosis 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) Anxiety and depression Dysthymic disorder [facility] [place] [facility]* Diagnosis Palliative care by specialist- Primary Chronic pain syndrome Opioid use agreement exists Encounters for other specified administrative purpose 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 [facility] [place] [facility]* Diagnosis Other acute pulmonary embolism, unspecified whether acute cor pulmonale present (HCC)- Primary Pleural effusion, left Unspecified pleural effusion Pulmonary hypertension (HCC) Other chronic pulmonary heart diseases [facility] [place] [facility]* Diagnosis Pleural effusion, left Unspecified pleural effusion [facility] [place] [facility]* Diagnosis Bronchiectasis without complication (HCC)- Primary Bronchiectasis without acute exacerbation [facility] [place] [facility]* Diagnosis Hypoxia- Primary Hypoxemia [facility] [place] [facility]* Diagnosis Other secondary pulmonary hypertension (HCC)- Primary [facility] [place] [facility]* Diagnosis Restrictive lung disease- Primary Other diseases of lung, not elsewhere classified Bronchiectasis without complication (HCC) Bronchiectasis without acute exacerbation Chronic respiratory failure with hypoxia (HCC) Chronic respiratory failure 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 Pleural effusion Unspecified pleural effusion Pulmonary hypertension (HCC) Other chronic pulmonary heart diseases [facility] [place] [facility]* Diagnosis Muscle cramps Cramp of limb Nodular sclerosing Hodgkin's lymphoma, unspecified body region (HCC) documented [facility] [place] [facility]* Diagnosis 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) Opioid use agreement exists Encounters for other specified administrative purpose Chronic pain syndrome Palliative care by specialist [facility] [place] [facility]* Diagnosis Acute hypoxic respiratory failure (HCC) Bronchiectasis without complication (HCC) Bronchiectasis without acute exacerbation Restrictive lung disease Other diseases of lung, not elsewhere classified [facility] [place] [facility]* Diagnosis Acute hypoxic respiratory failure (HCC) [facility] [place] [facility]* Diagnosis Other secondary pulmonary hypertension (HCC) [facility] [place] [facility]* Diagnosis Pulmonary hypertension (HCC)- Primary Other chronic pulmonary heart diseases Bronchiectasis without complication (HCC) Bronchiectasis without acute exacerbation Restrictive lung disease Other diseases of lung, not elsewhere classified 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) Restrictive lung disease Other diseases of lung, not elsewhere classified documented in this encounter [facility]Evaluation note* Diagnosis Anxiety Anxiety state, unspecified documented in this encounter [facility] note* Diagnosis Anxiety Anxiety state, unspecified documented in this encounter [facility]* Diagnosis Anxiety Anxiety state, unspecified documented in this encounter [facility]* Diagnosis 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 ([facility]) Opioid use agreement exists Encounters for other specified administrative purpose Chronic pain syndrome Muscle cramps Cramp of limb Pulmonary hypertension ([facility]) Other chronic pulmonary heart diseases Pulmonary HTN ([facility]) Other chronic pulmonary heart diseases [facility] Diagnosis 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)- Primary Restrictive lung disease Other diseases of lung, not elsewhere classified Major depressive disorder, single episode, mild ([facility]) ([facility]) Major depressive disorder, single episode, mild Anxiety Anxiety state, unspecified Primary insomnia Persistent disorder of initiating or maintaining sleep Neuropathy Mononeuritis of unspecified site Pulmonary hypertension ([facility]) Other chronic pulmonary heart diseases Nodular sclerosis Hodgkin lymphoma, unspecified site ([facility]) documented in this encounter [facility] note* Diagnosis Nerve pain Unspecified neuralgia, neuritis, and radiculitis 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) Opioid use agreement exists Encounters for other specified administrative purpose Chemotherapy-induced neuropathy (HCC) Polyneuropathy due to drugs Headaches Adjustment disorder with anxious mood Adjustment disorder with anxiety [facility] [place] [facility]* Diagnosis Subacute cough Cough [facility] [place] [facility]* Diagnosis 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 Diagnosis Pleural effusion- Primary Unspecified pleural effusion Bronchiectasis without complication (HCC) Bronchiectasis without acute exacerbation Restrictive lung disease Other diseases of lung, not elsewhere classified Chronic respiratory failure with hypoxia (HCC) Chronic respiratory failure Pulmonary hypertension (HCC) Other chronic pulmonary heart diseases [facility] [place] [facility]* Diagnosis BRIAN (obstructive sleep apnea)- Primary Obstructive sleep apnea (adult) (pediatric) documented [facility] this [facility] [place] [facility]* Diagnosis Asthma, unspecified asthma severity, unspecified whether complicated, unspecified whether persistent (CMS/HCC)- Primary [facility] Diagnosis Asthma, unspecified asthma severity, unspecified whether complicated, unspecified whether persistent (CMS/HCC)- Primary Restrictive lung disease Other diseases of lung, not elsewhere classified Anxiety Anxiety state, unspecified Major depressive disorder, single episode, mild (HCC) (CMS/HCC) Major depressive disorder, single episode, mild Primary insomnia Persistent disorder of initiating or maintaining sleep Nodular sclerosing Hodgkin's lymphoma, unspecified body region (CMS/HCC) Screening mammogram for breast cancer Neuropathy Mononeuritis of unspecified site Left leg pain Pain in soft tissues of limb documented in this encounter [facility] HealthcareEvaluation note* Diagnosis Simple chronic bronchitis (HCC)- Primary Simple chronic bronchitis Bronchiectasis without complication (HCC) Bronchiectasis without acute exacerbation Chronic respiratory failure with hypoxia (HCC) Chronic respiratory failure [facility] Diagnosis Primary insomnia Persistent disorder of initiating or maintaining sleep documented in this encounter [facility] HealthcareEvaluation note* Diagnosis Anxiety Anxiety state, unspecified Major depressive disorder, single episode, mild (HCC) (CMS/HCC) Major depressive disorder, single episode, mild Neuropathy Mononeuritis of unspecified site [facility] this 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 Surgical History biopsy Hospitalization History she has had several stay s for her dx [facility] Signature Other Reason for referral (narrative)* Diagnostic Procedure Only (Routine) - Authorized Specialty Diagnoses / Procedures Referred By Contelizabeth t Referred To Contact MOLECULAR & FUNCTIONAL IMAGING Diagnoses Hodgkin lymphoma, unspecified Hodgkin lymphoma type, unspecified body region (HCC) 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) Procedures NM PET/CT SKULL-THIGH SUBSEQUENT PET IMAGING CT ATTENUATION [place] [address] [place] [address] Molecular [facility] Functional Imaging [address] [place] [address] Referral ID Status Reason Start Date Expiration Date Visits Requested Visits Authorized [id number] Authorized Auto-Generat ed Referral 06/14/2021 07/14/2022 1 1 [facility] for referral (narrative)* Diagnostic Procedure Only (Routine) - Authorized Specialty Diagnoses / Procedures Referred By Contac t Referred To Contact MOLECULAR & FUNCTIONAL IMAGING Diagnoses Nodular sclerosing Hodgkin's lymphoma, unspecified body region (HCC) Procedures NM PET/CT SKULL-THIGH SUBSEQUENT PET IMAGING CT ATTENUATION [place] [address] [place] [address] Molecular [facility] Functional Imaging [address] [place] [address] Referral ID Status Reason Start Date Expiration Date Visits Requested Visits Authorized [id number] Authorized Auto-Generat ed Referral 11/15/2021 12/15/2022 1 1 [facility] for referral (narrative)* Outpatient Procedure (Routine) - Pending Review Specialty Diagnoses / Procedures [facility] Diagnoses Nodular sclerosing Hodgkin's lymphoma, unspecified body region (HCC) BAEZ (dyspnea on exertion) Chronic cough Procedures ECHO ECHO TTHRC R-T 2D W/WOM-MODE COMPL SPEC&COLR D Sylvia Mancilla APRN.SEWAGE DISPOSAL ENGINEER [address] [place] [address] [facility] [place] [address] [place] [address] Referral ID Status Reason Start Date Expiration Date Visits Requested Visits Authorized [id number] Pending Review Auto-Generat ed Referral 12/27/2021 12/27/2022 1 1 [facility] for referral (narrative)* Diagnostic Procedure Only (Routine) - Pending Review Specialty Diagnoses / Procedures [facility] Referred To Contact MOLECULAR & FUNCTIONAL IMAGING Diagnoses Nodular sclerosing Hodgkin's lymphoma, unspecified body region (HCC) Procedures NM PET/CT SKULL-THIGH SUBSEQUENT PET IMAGING CT ATTENUATION [place] [address] [place] [phone] [facility] [address] [place] [id number] Referral ID Status Reason Start Date Expiration Date Visits Requested Visits Authorized [id number] Pending Review Auto-Generat ed Referral 07/18/2022 08/17/2023 1 1 [facility] for referral (narrative)* Outpatient Procedure (Routine) - Authorized Specialty Diagnoses / Procedures Referred By Contac t Referred To Contact [facility] Diagnoses Bronchitis Procedures NITRIC OXIDE, EXHALED NITRIC OXIDE GAS DETERMINATION Don Chan APRN.CNP [address] [place] [address] [place] [address] Referral ID Status Reason Start Date Expiration Date Visits Requested Visits Authorized [id number] Authorized Auto-Generat ed Referral 08/02/2022 09/01/2023 1 1 * Outpatient Procedure (Routine) - Authorized Specialty Diagnoses / Procedures Referred By Contac t Referred To [facility] Diagnoses Chronic cough Procedures LUNG DIFFUSION CAPACITY (DLCO) DIFFUSING CAPACITY Don Chan APRN.CNP [address] [place] [address] [place] [address] Referral ID Status Reason Start Date Expiration Date Visits Requested Visits Authorized [id number] Authorized Auto-Generat ed Referral 08/02/2022 09/01/2023 1 1 * Outpatient Procedure (Routine) - Authorized Specialty Diagnoses / Procedures Referred By Contac t Referred To Contact [facility] Diagnoses Chronic cough Procedures SPIROMETRY - BASELINE AND POST DILATOR BRNCDILAT RSPSE SPMTRY PRE&POST-BRNCDILAT ADMN Shahram Chanoya, HEAT READER.SEWAGE DISPOSAL ENGINEER [address] [place] [address] [facility] [place] [address] [place] [phone] Referral ID Status Reason Start Date Expiration Date Visits Requested Visits Authorized [id number] Authorized Auto-Generat ed Referral 08/02/2022 09/01/2023 1 1 [facility] for referral (narrative)* Diagnostic Procedure Only (Routine) - Pending Review Specialty Diagnoses / Procedures Referred By Contac t Referred To Contact MOLECULAR [facility] FUNCTIONAL IMAGING 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) Procedures NM PET/CT SKULL-THIGH SUBSEQUENT PET IMAGING CT ATTENUATION [place] [address] [place] [address] Molecular & Functional Imaging [address] [place] [address] Referral ID Status Reason Start Date Expiration Date Visits Requested Visits Authorized [id number] Pending Review Auto-Generat ed Referral 08/22/2022 09/21/2023 1 1 [facility] for referral (narrative)* Diagnostic Procedure Only (Routine) - Authorized Specialty Diagnoses / Procedures Referred By Contac t Referred To Contact MOLECULAR & FUNCTIONAL IMAGING Diagnoses 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) Procedures NM PET/CT SKULL-THIGH SUBSEQUENT PET IMAGING CT ATTENUATION SKULL BASE MID-THIGH Ruperto Ledezma MD [address] [place] [address] [place] [address] Molecular & Functional Imaging [address] [place] [address] Referral ID Status Reason Start Date Expiration Date Visits Requested Visits Authorized [id number] Authorized Auto-Generat ed Referral 01/31/2024 1 1 [facility] for referral (narrative)* Diagnostic Procedure Only (Routine) - Pending Review Specialty Diagnoses / Procedures Referred By Contac t Referred To Contact XR IMAGING Diagnoses Dysphagia, unspecified type Gastroesophageal reflux disease, unspecified whether esophagitis present Procedures XR ESOPHAGRAM RADIOLOGIC EXAM ESOPHAGUS SINGLE CONTRAST STUDY Anil Franco PA-C [address] [place] [address] [place] [address] Referral ID Status Reason Start Date Expiration Date Visits Requested Visits Authorized [id number] Pending Review Auto-Generat ed Referral 05/22/2023 06/20/2024 1 1 * Diagnostic Procedure Only (Routine) - Authorized Specialty Diagnoses / Procedures [facility] Referred To Contact XR IMAGING Diagnoses Dysphagia, unspecified type Procedures XR MODIFIED BARIUM SWALLOW W SPEECH THERAPY RADIOLOGIC EXAM SWALLOW FUNCTION CONTRAST STUDY Anil Franco PA-C [address] [place] [phone] [place] [address] Referral ID Status Reason Start Date Expiration Date Visits Requested Visits Authorized [id number] Authorized Auto-Generat ed Referral 05/22/2023 06/20/2024 1 1 [facility] for referral (narrative)* Diagnostic Procedure Only (Routine) - Closed Specialty Diagnoses / Procedures [facility] Referred To Contact XR IMAGING Diagnoses Dysphagia, unspecified type Procedures XR MODIFIED BARIUM SWALLOW W SPEECH THERAPY RADIOLOGIC EXAM SWALLOW FUNCTION CONTRAST STUDY Anil Franco PA-C [address] [place] [address] [place] [address] Referral ID Status Reason Start Date Expiration Date V isits Requested Visits Authorized [id number] Closed Auto-Generate d Referral 05/22/2023 06/20/2024 1 1 [facility] for referral (narrative)* Diagnostic Procedure Only (Routine) - Closed Specialty Diagnoses / Procedures Referred By Contac t Referred To Contact XR IMAGING Diagnoses Dysphagia, unspecified type Gastroesophageal reflux disease, unspecified whether esophagitis present Procedures XR ESOPHAGRAM RADIOLOGIC EXAM ESOPHAGUS SINGLE CONTRAST STUDY Anil Franco PA-C [address] [place] [address] [place] [address] Referral ID Status Reason Start Date Expiration Date V isits Requested Visits Authorized [id number] Closed Auto-Generate d Referral 05/22/2023 06/20/2024 1 1 [facility] for referral (narrative)* Diagnostic Procedure Only (Routine) - Pending Review Specialty Diagnoses / Procedures Referred By Contac t Referred To Contact XR IMAGING Diagnoses Pain Procedures XR WRIST GENERAL 3V PA/LAT/OBL RIGHT RADEX WRIST COMPLETE MINIMUM 3 VIEWS Sherly Bruner PA-C [address] [place] [address] [place] [address] Referral ID Status Reason Start Date Expiration Date Visits Requested Visits Authorized [id number] Pending Review Auto-Generat ed Referral 07/31/2023 08/28/2024 1 1 [facility] for referral (narrative)* Outpatient Procedure (Routine) - Authorized Specialty Diagnoses / Procedures Referred By Contac t Referred To Contact [facility] Diagnoses Pulmonary hypertension (HCC) Procedures OXIMETRY WITH AMBULATION NONINVASIVE EAR/PULSE OXIMETRY Carole Morales APRN.CNP [address] [place] [address] [facility] [place] [address] [place] [address] Referral ID Status Reason Start Date Expiration Date Visits Requested Visits Authorized [id number] Authorized Auto-Generat ed Referral 08/06/2023 09/04/2024 1 1 [facility] for referral (narrative)* Diagnostic Procedure Only (Routine) - Closed Specialty Diagnoses / Procedures Referred By Contac t Referred To Contact XR IMAGING Diagnoses Polyarthralgia Procedures XR FOOT GENERAL 3V AP/LAT/OBL BILATERAL RADEX FOOT COMPLETE MINIMUM 3 VIEWS Simin Brandt MD [address] [place] [phone] [place] [address] Referral ID Status Reason Start Date Expiration Date V isits Requested Visits Authorized [id number] Closed Auto-Generate d Referral 10/09/2023 11/07/2024 1 1 * Diagnostic Procedure Only (Routine) - Closed Specialty Diagnoses / Procedures Referred By Contac t Referred To Contact XR IMAGING Diagnoses Polyarthralgia Procedures XR HAND GENERAL 3V PA/LAT/OBL BILATERAL RADEX HAND MINIMUM 3 VIEWS Simin Brandt MD [address] [place] [address] X[facility] [place] [address] Referral ID Status Reason Start Date Expiration Date V isits Requested Visits Authorized [id number] Closed Auto-Generate d Referral 10/09/2023 11/07/2024 1 1 * Diagnostic Procedure Only (Routine) - Closed Specialty Diagnoses / Procedures Referred By Contac t Referred To Contact XR IMAGING Diagnoses Polyarthralgia Procedures XR KNEE GENERAL 4V AP BOTH/PA BOTH/LAT/MERC BILATERAL RADIOLOGIC EXAM KNEE COMPLETE 4/MORE VIEWS Simin Brandt MD [address] [place] [address] Xr Imaging [facility] Referral ID Status Reason Start Date Expiration Date V isits Requested Visits Authorized [id number] Closed Auto-Generate d Referral 10/09/2023 11/07/2024 1 1 * Diagnostic Procedure Only (Routine) - Closed Specialty Diagnoses / Procedures Referred By Contac t Referred To Contact XR IMAGING Diagnoses Polyarthralgia Procedures XR SACROILIAC JOINTS 2V AP PELVIS/FERGUESON RADIOLOGIC EXAMINATION SACROILIAC JNTS <3 VIEWS Simin Brandt MD [address] [place] [address] [place] [address] Referral ID Status Reason Start Date Expiration Date V isits Requested Visits Authorized [id number] Closed Auto-Generate d Referral 10/09/2023 11/07/2024 1 1 [facility] for referral (narrative)* Diagnostic Procedure Only (Routine) - Closed Specialty Diagnoses / Procedures Referred By Contac t Referred To Contact XR IMAGING Diagnoses Polyarthralgia Procedures XR FOOT GENERAL 3V AP/LAT/OBL BILATERAL RADEX FOOT COMPLETE MINIMUM 3 VIEWS Simin Brandt MD [address] [place] [address] Xr Imaging [facility] Referral ID Status Reason Start Date Expiration Date V isits Requested Visits Authorized [id number] Closed Auto-Generate d Referral 10/09/2023 11/07/2024 1 1 * Diagnostic Procedure Only (Routine) - Closed Specialty Diagnoses / Procedures Referred By Contac t Referred To Contact XR IMAGING Diagnoses Polyarthralgia Procedures XR HAND GENERAL 3V PA/LAT/OBL BILATERAL RADEX HAND MINIMUM 3 VIEWS Simin Brandt MD [address] [place] [address] Xr Imaging [facility] Referral ID Status Reason Start Date Expiration Date V isits Requested Visits Authorized [id number] Closed Auto-Generate d Referral 10/09/2023 11/07/2024 1 1 * Diagnostic Procedure Only (Routine) - Closed Specialty Diagnoses / Procedures Referred By Contac t Referred To Contact XR IMAGING Diagnoses Polyarthralgia Procedures XR KNEE GENERAL 4V AP BOTH/PA BOTH/LAT/MERC BILATERAL RADIOLOGIC EXAM KNEE COMPLETE 4/MORE VIEWS Simin Brandt MD [address] [place] [phone] Xr Imaging [facility] Referral ID Status Reason Start Date Expiration Date V isits Requested Visits Authorized [id number] Closed Auto-Generate d Referral 10/09/2023 11/07/2024 1 1 * Diagnostic Procedure Only (Routine) - Closed Specialty Diagnoses / Procedures Referred By Contac t Referred To Contact XR IMAGING Diagnoses Polyarthralgia Procedures XR SACROILIAC JOINTS 2V AP PELVIS/FERGUESON RADIOLOGIC EXAMINATION SACROILIAC JNTS <3 VIEWS Simin Brandt MD [address] [place] [address] X[facility] Imaging [place] [address] Referral ID Status Reason Start Date Expiration Date V isits Requested Visits Authorized [id number] Closed Auto-Generate d Referral 10/09/2023 11/07/2024 1 1 [facility] for referral (narrative)* Diagnostic Procedure Only (Routine) - Closed Specialty Diagnoses / Procedures [facility] Referred To Contact MOLECULAR [facility] FUNCTIONAL IMAGING 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) Procedures NM PET/CT SKULL-THIGH SUBSEQUENT PET IMAGING CT ATTENUATION [place] [address] [place] [address] Molecular [facility] Functional Imaging [address] [place] [phone] Referral ID Status Reason Start Date Expiration Date V isits Requested Visits Authorized [id number] Closed Auto-Generate d Referral 08/22/2022 09/21/2023 1 1 [facility] for referral (narrative)* Diagnostic Procedure Only (Routine) - Closed Specialty Diagnoses / Procedures [facility] Referred To Contact MOLECULAR & FUNCTIONAL IMAGING Diagnoses 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) Procedures NM PET/CT SKULL-THIGH SUBSEQUENT PET IMAGING CT ATTENUATION SKULL BASE MID-THIGH Ruperto Ledezma MD [address] [place] [address] [place] [address] Molecular & Functional Imaging [address] [place] [id number] Referral ID Status Reason Start Date Expiration Date V isits Requested Visits Authorized [id number] Closed Auto-Generate d Referral 01/01/2023 01/31/2024 1 1 [facility] for referral (narrative)* Diagnostic Procedure Only (Routine) - Closed Specialty Diagnoses / Procedures [facility] Referred To Contact MOLECULAR [facility] FUNCTIONAL IMAGING Diagnoses Nodular sclerosing Hodgkin's lymphoma, unspecified body region (HCC) Procedures NM PET/CT SKULL-THIGH SUBSEQUENT PET IMAGING CT ATTENUATION [place] [address] [place] [address] Molecular & Functional Imaging [address] [place] [address] Referral ID Status Reason Start Date Expiration Date V isits Requested Visits Authorized [id number] Closed Auto-Generate d Referral 07/25/2022 01/21/2023 1 1 [facility] for referral (narrative)* Diagnostic Procedure Only (Routine) - New Request Specialty Diagnoses / Procedures [facility] Referred To Contact MOLECULAR [facility] FUNCTIONAL IMAGING 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) Procedures NM PET/CT SKULL-THIGH SUBSEQUENT PET IMAGING CT ATTENUATION SKULL BASE MID-THIGH Ellyn Lopez, HEAT READERNancySEWAGE DISPOSAL ENGINEER [address] [place] [address] [place] [address] Molecular & Functional Imaging [address] [place] [address] Referral ID Status Reason Start Date Expiration Date Visits Requested Visits Authorized [id number] New Request Auto-Generat ed Referral 11/11/2023 12/10/2024 1 1 [facility] for referral (narrative)* Diagnostic Procedure Only (Routine) - Closed Specialty Diagnoses / Procedures Referred By Heidi t Referred To Contact MOLECULAR & FUNCTIONAL IMAGING Diagnoses Nodular sclerosing Hodgkin's lymphoma, unspecified body region (HCC) Procedures NM PET/CT SKULL-THIGH SUBSEQUENT PET IMAGING CT ATTENUATION [place] [address] [place] [address] Molecular & Functional Imaging [address] [place] [address] Referral ID Status Reason Start Date Expiration Date V isits Requested Visits Authorized [id number] Closed Auto-Generate d Referral 11/15/2021 12/15/2022 1 1 [facility] for referral (narrative)* Diagnostic Procedure Only (Routine) - Closed Specialty Diagnoses / Procedures Referred By Heidi george Referred To Contact MOLECULAR & FUNCTIONAL IMAGING Diagnoses Nodular sclerosing Hodgkin's lymphoma, 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) Procedures NM PET/CT SKULL-THIGH SUBSEQUENT PET IMAGING CT ATTENUATION SKULL B[place] [address] [place] [id number] Molecular & Functional Imaging [address] [place] [address] Referral ID Status Reason Start Date Expiration Date V isits Requested Visits Authorized [id number] Closed Auto-Generate d Referral 08/16/2021 09/15/2022 1 1 [facility] for referral (narrative)* Diagnostic Procedure Only (Routine) - Closed Specialty Diagnoses / Procedures Referred By Heidi george Referred To Contact MOLECULAR & FUNCTIONAL IMAGING Diagnoses Hodgkin lymphoma, unspecified Hodgkin lymphoma type, unspecified body region (HCC) 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) Procedures NM PET/CT SKULL-THIGH SUBSEQUENT PET IMAGING CT ATTENUATION [place] [address] [place] [address] Molecular & Functional Imaging [address] [id number] Referral ID Status Reason Start Date Expiration Date V isits Requested Visits Authorized [id number] Closed Auto-Generate d Referral 06/14/2021 07/14/2022 1 1 [facility] for referral (narrative)* Diagnostic Procedure Only (Routine) - Closed Specialty Diagnoses / Procedures Referred By Contac t Referred To Contact MOLECULAR & FUNCTIONAL IMAGING Diagnoses Hodgkin lymphoma, unspecified Hodgkin lymphoma type, unspecified body region (HCC) Procedures NM PET/CT SKULL-THIGH SUBSEQUENT TUMOR IMAGING PET W/CONC CT SKULL-THIGH Sylvia Mancilla APRN.SEWAGE DISPOSAL ENGINEER [address] [place] [address] Molecular & Functional Imaging [address] [place] [address] Referral ID Status Reason Start Date Expiration Date V isits Requested Visits Authorized [id number] Closed Auto-Generate d Referral 01/25/2021 02/24/2022 1 1 [facility] for referral (narrative)* Outpatient Procedure (Routine) - New Request Specialty Diagnoses / Procedures Referred By Contac t Referred To [facility] Diagnoses Acute hypoxic respiratory failure (HCC) Bronchiectasis without complication (HCC) Restrictive lung disease Procedures SIX MINUTE WALK CARDIOPULMONARY EXERCISE STRESS 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 APRN.SEWAGE DISPOSAL ENGINEER [address] [place] [address] [facility] [place] [address] [place] [address] Referral ID Status Reason Start Date Expiration Date Visits Requested Visits Authorized [id number] New Request Auto-Generat ed Referral 12/25/2023 01/23/2025 1 1 * Outpatient Procedure (Routine) - New Request Specialty Diagnoses / Procedures Referred By Contac t Referred To [facility] Diagnoses Acute hypoxic respiratory failure (HCC) Bronchiectasis without complication (HCC) Restrictive lung disease Procedures LUNG DIFFUSION CAPACITY (DLCO) DIFFUSING CAPACITY 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 APRN.SEWAGE DISPOSAL ENGINEER [address] [place] [address] [facility] [place] [address] [place] [address] Referral ID Status Reason Start Date Expiration Date Visits Requested Visits Authorized [id number] New Request Auto-Generat ed Referral 12/25/2023 01/23/2025 1 1 * Outpatient Procedure (Routine) - New Request Specialty Diagnoses / Procedures Referred By Heidi t Referred To Contact [facility] Diagnoses Acute hypoxic respiratory failure (HCC) Bronchiectasis without complication (HCC) Restrictive lung disease Procedures SPIROMETRY WITH DILATOR IF OBSTRUCTED BRNCDILAT RSPSE SPMTRY PRE&POST-BRNCDILAT ADMN 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 APRN.SEWAGE DISPOSAL ENGINEER [address] [place] [address] [facility] [place] [address] [place] [address] Referral ID Status Reason Start Date Expiration Date Visits Requested Visits Authorized [id number] New Request Auto-Generat ed Referral 12/25/2023 01/23/2025 1 1 [facility] for referral (narrative)* Outpatient Procedure (Routine) - Authorized Specialty Diagnoses / Procedures Referred By Contac t Referred To Contact [facility] [place] Diagnoses Pleural effusion, left Pulmonary hypertension (HCC) Other acute pulmonary embolism, unspecified whether acute cor pulmonale present (HCC) Procedures ECHO ECHO TTHRC R-T 2D W/WOM-MODE COMPL SPEC&[place] [address] [place] [address] [facility] [address] [address] Referral ID Status Reason Start Date Expiration Date Visits Requested Visits Authorized [id number] Authorized Auto-Generat ed Referral 4 01/02/2025 1 1 [facility] for referral (narrative)* Diagnostic Procedure Only (Routine) - New Request Specialty Diagnoses / Procedures Referred By Heidi george Referred To Contact MOLECULAR & FUNCTIONAL IMAGING Diagnoses Other secondary pulmonary hypertension (HCC) Procedures NM LUNG VENT / PERF VQ PULMONARY VENTILATION & PERFUSION IMAGING Sheela Chino APRN.WIRE MILL OPERATOR [address] [employer] [place] [id number] Molecular & Functional Imaging [address] [place] [address] Referral ID Status Reason Start Date Expiration Date Visits Requested Visits Authorized [id number] New Request Auto-Generat ed Referral 4 02/04/2025 1 1 [facility] for referral (narrative)* Diagnostic Procedure Only (Routine) - Closed Specialty Diagnoses / Procedures Referred By Heidi george Referred To Contact MOLECULAR & FUNCTIONAL IMAGING Diagnoses Other secondary pulmonary hypertension (HCC) Procedures NM LUNG VENT / PERF VQ PULMONARY VENTILATION & PERFUSION IMAGING Sheela Chino APRN.WIRE MILL OPERATOR [address] [employer] [address] Molecular & Functional Imaging [address] [place] [address] Referral ID Status Reason Start Date Expiration Date V isits Requested Visits Authorized [id number] Closed Auto-Generate d Referral 01/06/2024 02/04/2025 1 1 [facility] for referral (narrative)* Consultation (Routine) - Pending Review Specialty Diagnoses / Procedures Referred By Heidi george Referred To Contact Immunology Diagnoses Pneumonia due to infectious organism, unspecified laterality, unspecified part of lung Acute respiratory failure, unspecified whether with hypoxia or hypercapnia (CMS/HCC) Restrictive lung disease Procedures PA OFFICE/OUTPATIENT NEW HIGH MDM 60 MINUTES Sheila Lin, UNPAID INTERN [address] [facility] [place] [address] Referral ID Status Reason Start Date Expiration Date Visits Requested Visits Authorized [id number] Pending Review Specialty Services Required 11/06/2023 05/04/2024 [address] Watson Zavala T [facility] for visit Narrative* Diagnostic Procedure Only (Routine) - Closed Specialty Diagnoses / Procedures Referred By Contac t Referred To Contact XR IMAGING Diagnoses Dysphagia, unspecified type Procedures XR MODIFIED BARIUM SWALLOW W SPEECH THERAPY RADIOLOGIC EXAM SWALLOW FUNCTION CONTRAST STUDY Anil Franco PA-C [address] [place] [address] [place] [address] Referral ID Status Reason Start Date Expiration Date V isits Requested Visits Authorized [id number] Closed Auto-Generate d Referral 05/22/2023 06/20/2024 1 1 [facility] for visit Narrative* Diagnostic Procedure Only (Routine) - Closed Specialty Diagnoses / Procedures Referred By Contac t Referred To Contact XR IMAGING Diagnoses Polyarthralgia Procedures XR FOOT GENERAL 3V AP/LAT/OBL BILATERAL RADEX FOOT COMPLETE MINIMUM 3 VIEWS Simin Brandt MD [address] [facility] [place] [address] [place] [address] Referral ID Status Reason Start Date Expiration Date V isits Requested Visits Authorized [id number] Closed Auto-Generate d Referral 10/09/2023 11/07/2024 1 1 [facility] for visit Narrative* Diagnostic Procedure Only (Routine) - Closed Specialty Diagnoses / Procedures Referred By Contac t Referred To Contact US IMAGING Diagnoses Pleural effusion, left Procedures US CHEST EFFUSION SURVEY US CHEST REAL TIME W/IMAGE DOCUMENTATION Carole Ruano, LORY.SEWAGE DISPOSAL ENGINEER [address] [place] [address] [place] [address] Referral ID Status Reason Start Date Expiration Date V isits Requested Visits Authorized [id number] Closed Auto-Generate d Referral 06/14/2023 07/13/2024 1 1 [facility] for visit Narrative* Diagnostic Procedure Only (Routine) - Closed Specialty Diagnoses / Procedures Referred By Contac t Referred To Contact MOLECULAR & FUNCTIONAL IMAGING Diagnoses Other secondary pulmonary hypertension (HCC) Procedures NM LUNG VENT / PERF VQ PULMONARY VENTILATION & PERFUSION IMAGING ChinoSheela, HEAT READER.WIRE MILL OPERATOR [address] [facility] [address] [place] [address] Molecular & Functional Imaging [address] [place] [address] Referral ID Status Reason Start Date Expiration Date V isits Requested Visits Authorized [id number] Closed Auto-Generate d Referral 01/06/2024 02/04/2025 [facility] Diagnostic Procedure Only (Routine) - Closed Specialty Diagnoses / Procedures Referred By Heidi george Referred To Contact US IMAGING Diagnoses Pleural effusion Procedures US CHEST EFFUSION SURVEY US CHEST REAL TIME W/[place] [address] [place] [address] Phone: tel: fax: [place] [address] Referral ID Status Reason Start Date Expiration Date V isits Requested Visits Authorized [id number] Closed Auto-Generate d Referral 05/07/2024 06/06/2025 1 1 [facility] Summary Purpose Family History No Family History Records FoundNo Family History Records FoundNo Family History Records FoundNo Family History Records FoundNo Family History Records FoundNo Family History Records FoundNo Family History Records FoundNo Family History Records FoundNo Family History Records FoundNo Family History Records FoundNo Family History Records Found Advance Directives Documents on File Type Date Recorded Patient Perinatal Coordinator Expl anation Advance Directive(s) 09/30/2017 12:34 PM Advance Directive(s) 04/16/2016 9:44 PM Advance Directive(s) 01/28/2016 8:20 PM Documents on File Type Date Recorded Patient Perinatal Coordinator Expl anation Advance Directive(s) 09/30/2017 12:34 PM Advance Directive(s) 04/16/2016 9:44 PM Advance Directive(s) 01/28/2016 8:20 PM Documents on File Type Date Recorded Patient Perinatal Coordinator Expl anation Advance Directive(s) 09/20/2021 8:56 PM Advance Directive(s) 09/30/2017 12:34 PM Advance Directive(s) 04/16/2016 9:44 PM Advance Directive(s) 01/28/2016 8:20 PM Advance Directive Response Recorded Date/ Time Advance Directives No April 22 1:09pm Date Activated Date Inactivated Comments 12/19/2023 1:21 AM 12/20/2023 7:38 PM Question Answer Comments Full Code Order Discussed With: Patient Date Activated Date Inactivated Comments 12/19/2023 1:21 AM 12/20/2023 7:38 PM Question Answer Comments Full Code Order Discussed With: Patient Medications Administered Section Inactive Administered Medications - [...] 30 Minutes, ONCE, 1 dose, On Nita 01/18/22 at 1100, Exp 12.2 1100 RF Approx [...] By Contac t Referred To Contact Diagnoses Pulmonary hypertension (HCC) Procedures CONSULT TO PULMONARY HYPERTENSION CLINIC OFFICE/OUTPATIENT [facility] 60 [place] [address] [place] [address] Referral ID Status Reason Start Date Expiration Date Visits Requested Visits Authorized [id number] Authorized PCP Requested Referral 4 01/05/2025 1 1 Specialty Diagnoses / Procedures Referred By Contac t Referred To Contact [facility] [place] Diagnoses Chemotherapy-induced neuropathy (HCC) Anxiety and depression Procedures CONSULT TO [facility]) OFFICE/OUTPATIENT [facility] 60 MINUTES Kodi Pantoja MD [address] [place] [address] Referral ID Status Reason Start Date Expiration Date Visits Requested Visits Authorized [id number] Pending Review PCP Requested Referral 12/26/2023 12/25/2024 1 1 Specialty Diagnoses / Procedures Referred By Contac t Referred To Contact Diagnoses Daily headache Procedures CT head wo IV contrast Sheila Lin, UNPAID INTERN [address] [facility] [place] [address] Referral ID Status Reason Start Date Expiration Date V isits Requested Visits Authorized [id number] Pending Review 11/28/2023 05/26/2024 1 1 Specialty Diagnoses / Procedures Referred By Contac t Referred To Contact CT IMAGING Diagnoses Pneumonia due to infectious organism, unspecified laterality, unspecified part of lung Procedures CT CHEST WO IVCON DIAGNOSTIC COMPUTED TOMOGRAPHY THORAX W/O CNTRST 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, HEAT READER.SEWAGE DISPOSAL ENGINEER [address] [place] [address] [place] [address] Referral ID Status Reason Start Date Expiration Date Visits Requested Visits Authorized [id number] Authorized Auto-Generat ed Referral 11/21/2023 12/20/2024 1 1 Specialty Diagnoses / Procedures Referred By Contac t Referred To Contact Pain Management Diagnoses Chronic pain syndrome Procedures CONSULT TO PAIN MGT OFFICE/OUTPATIENT [facility] 60 MINUTES Irene Han, HEAT READER.SEWAGE DISPOSAL ENGINEER [address] [place] [address] Referral ID Status Reason Start Date Expiration Date Visits Requested Visits Authorized [id number] Authorized PCP Requested Referral 10/17/2023 10/16/2024 1 1 Specialty Diagnoses / Procedures Referred By Contac t Referred To Contact Gastroenterology Diagnoses Dysphagia, unspecified type Procedures CONSULT TO GASTROENTEROLOGY OFFICE/OUTPATIENT [facility] MDM 60 MINUTES Anil Franco PA-C [address] [place] [address] Referral ID Status Reason Start Date Expiration Date Visits Requested Visits Authorized [id number] Authorized PCP Requested Referral 09/18/2023 09/17/2024 1 1 Specialty Diagnoses / Procedures Referred By Contac t Referred To Contact [facility] Diagnoses Hoarseness Procedures CONSULT TO SPEECH THERAPY OFFICE/OUTPATIENT [facility] 60 MINUTES Anil Franco PA-C [address] [place] [address] [facility] [place] [address] [place] [address] Referral ID Status Reason Start Date Expiration Date Visits Requested Visits Authorized [id number] Authorized Auto-Generat ed Referral 02/18/2023 02/18/2024 99 99 Specialty Diagnoses / Procedures Referred By Contac t Referred To Contact Cardiology Diagnoses Pleural effusion, left Pulmonary hypertension (HCC) Procedures CONSULT TO CARDIOLOGY OFFICE/OUTPATIENT [facility] 60 MINUTES Carole Ruano, HEAT READER.SEWAGE DISPOSAL ENGINEER [address] [place] [address] Referral ID Status Reason Start Date Expiration Date Visits Requested Visits Authorized [id number] Authorized PCP Requested Referral 06/14/2023 06/13/2024 1 1 Specialty Diagnoses / Procedures Referred By Contac t Referred To Contact US IMAGING Diagnoses Pleural effusion, left Procedures US CHEST EFFUSION SURVEY US CHEST REAL TIME W/IMAGE DOCUMENTATION Carole Ruano HEAT READER.SEWAGE DISPOSAL ENGINEER [address] [place] [address] [place] [address] Referral ID Status Reason Start Date Expiration Date Visits Requested Visits Authorized [id number] Authorized Auto-Generat ed Referral 06/14/2023 07/13/2024 1 1 Specialty Diagnoses / Procedures Referred By Contac t Referred To Contact Diagnoses Bronchitis Restrictive lung disease Carole Ruano, HEAT READER.SEWAGE DISPOSAL ENGINEER [address] [place] [address] Referral ID Status Reason Start Date Expiration Date Visits Re quested Visits Authorized [id number] Denied 1 1 Specialty Diagnoses / Procedures Referred By Contac t Referred To Contact Ent - Otolaryngology Diagnoses Dysphagia, unspecified type Hoarseness Procedures CONSULT TO ENT OFFICE/OUTPATIENT [facility] 60 MINUTES 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, HEAT READER.SEWAGE DISPOSAL ENGINEER [address] [place] [address] Referral ID Status Reason Start Date Expiration Date Visits Requested Visits Authorized [id number] Authorized PCP Requested Referral 03/28/2023 03/27/2024 1 1 Specialty Diagnoses / Procedures Referred By Heidi t Referred To Contact CT IMAGING Diagnoses Acute cough Procedures CT CHEST WO IVCON DIAGNOSTIC COMPUTED TOMOGRAPHY THORAX W/[place] [address] [place] [address] Ct Imaging Referral ID Status Reason Start Date Expiration Date V isits Requested Visits Authorized [id number] Closed Auto-Generate d Referral 05/22/2022 06/21/2023 1 1 Additional Source Comments INFORMATION SOURCE (unrecogn ized section and content) DATE CREATED AUTHOR 03/03/2019 [facility] DATE CREATED AUTHOR AUTHOR'S ORGANIZ ATION 09/22/2019 [facility] DATE CREATED AUTHOR AUTHOR'S ORGANIZ ATION 04/19/2021 [facility] DATE CREATED AUTHOR AUTHOR'S ORGANIZ ATION 07/08/2021 [facility] DATE CREATED AUTHOR AUTHOR'S ORGANIZ ATION 06/23/2022 [facility] DATE CREATED AUTHOR AUTHOR'S ORGANIZ ATION 10/19/2022 [facility] DATE CREATED AUTHOR AUTHOR'S ORGANIZ ATION 03/29/2023 [facility] DATE CREATED AUTHOR AUTHOR'S ORGANIZ ATION 05/11/2024 [facility] DATE CREATED AUTHOR AUTHOR'S ORGANIZ ATION 05/20/2024 [facility] DATE CREATED AUTHOR AUTHOR'S ORGANIZ ATION 06/08/2024 [facility] DATE CREATED AUTHOR AUTHOR'S ORGANIZ ATION 06/12/2024 [facility] Source Comments (unrecognize d section and content) In the event this informatio n is protected by the Federal Confidentiality of Alcohol and Drug Abuse Patient Records regulations: The Federal rules restrict any use of the information to criminally investigate or prosecute any alcohol or drug abuse patient.[facility] Hospital[facility] the event this information is protected by the Federal Confidentiality of Alcohol and Drug Abuse Patient Records regulations: The Federal rules restrict any use of the information to criminally investigate or prosecute any alcohol or drug abuse patient.[facility] HospitalIn the event this information is protected by the Federal Confidentiality of Alcohol and Drug Abuse Patient Records regulations: The Federal rules restrict any use of the information to criminally investigate or prosecute any alcohol or drug abuse patient.[facility] HospitalIn the event this information is protected by the Federal Confidentiality of Alcohol and Drug Abuse Patient Records regulations: The Federal rules restrict any use of the information to criminally investigate or prosecute any alcohol or drug abuse patient.[facility] HospitalIn the event this information is protected by the Federal Confidentiality of Alcohol and Drug Abuse Patient Records regulations: The Federal rules restrict any use of the information to criminally investigate or prosecute any alcohol or drug abuse patient.[facility] HospitalIn the event this information is protected by the Federal Confidentiality of Alcohol and Drug Abuse Patient Records regulations: The Federal rules restrict any use of the information to criminally investigate or prosecute any alcohol or drug abuse patient.[facility] HospitalIn the event this information is protected by the Federal Confidentiality of Alcohol and Drug Abuse Patient Records regulations: The Federal rules restrict any use of the information to criminally investigate or prosecute any alcohol or drug abuse patient.[facility] HospitalIn the event this information is protected by the Federal Confidentiality of Alcohol and Drug Abuse Patient Records regulations: The Federal rules restrict any use of the information to criminally investigate or prosecute any alcohol or drug abuse patient.[facility] HospitalIn the event this information is protected by the Federal Confidentiality of Alcohol and Drug Abuse Patient Records regulations: The Federal rules restrict any use of the information to criminally investigate or prosecute any alcohol or drug abuse patient.[facility] HospitalIn the event this information is protected by the Federal Confidentiality of Alcohol and Drug Abuse Patient Records regulations: The Federal rules restrict any use of the information to criminally investigate or prosecute any alcohol or drug abuse patient.[facility] HospitalIn the event this information is protected by the Federal Confidentiality of Alcohol and Drug Abuse Patient Records regulations: The Federal rules restrict any use of the information to criminally investigate or prosecute any alcohol or drug abuse patient.[facility] HospitalIn the event this information is protected by the Federal Confidentiality of Alcohol and Drug Abuse Patient Records regulations: The Federal rules restrict any use of the information to criminally investigate or prosecute any alcohol or drug abuse patient.[facility] HospitalIn the event this information is protected by the Federal Confidentiality of Alcohol and Drug Abuse Patient Records regulations: The Federal rules restrict any use of the information to criminally investigate or prosecute any alcohol or drug abuse patient.[facility] HospitalIn the event this information is protected by the Federal Confidentiality of Alcohol and Drug Abuse Patient Records regulations: The Federal rules restrict any use of the information to criminally investigate or prosecute any alcohol or drug abuse patient.[facility] HospitalIn the event this information is protected by the Federal Confidentiality of Alcohol and Drug Abuse Patient Records regulations: The Federal rules restrict any use of the information to criminally investigate or prosecute any alcohol or drug abuse patient.[facility] HospitalIn the event this information is protected by the Federal Confidentiality of Alcohol and Drug Abuse Patient Records regulations: The Federal rules restrict any use of the information to criminally investigate or prosecute any alcohol or drug abuse patient.[facility] HospitalIn the event this information is protected by the Federal Confidentiality of Alcohol and Drug Abuse Patient Records regulations: The Federal rules restrict any use of the information to criminally investigate or prosecute any alcohol or drug abuse patient.[facility] HospitalIn the event this information is protected by the Federal Confidentiality of Alcohol and Drug Abuse Patient Records regulations: The Federal rules restrict any use of the information to criminally investigate or prosecute any alcohol or drug abuse patient.[facility] HospitalIn the event this information is protected by the Federal Confidentiality of Alcohol and Drug Abuse Patient Records regulations: The Federal rules restrict any use of the information to criminally investigate or prosecute any alcohol or drug abuse patient.[facility] HospitalIn the event this information is protected by the Federal Confidentiality of Alcohol and Drug Abuse Patient Records regulations: The Federal rules restrict any use of the information to criminally investigate or prosecute any alcohol or drug abuse patient.[facility] HospitalIn the event this information is protected by the Federal Confidentiality of Alcohol and Drug Abuse Patient Records regulations: The Federal rules restrict any use of the information to criminally investigate or prosecute any alcohol or drug abuse patient.[facility] HospitalIn the event this information is protected by the Federal Confidentiality of Alcohol and Drug Abuse Patient Records regulations: The Federal rules restrict any use of the information to criminally investigate or prosecute any alcohol or drug abuse patient.[facility] HospitalIn the event this information is protected by the Federal Confidentiality of Alcohol and Drug Abuse Patient Records regulations: The Federal rules restrict any use of the information to criminally investigate or prosecute any alcohol or drug abuse patient.[facility] HospitalIn the event this information is protected by the Federal Confidentiality of Alcohol and Drug Abuse Patient Records regulations: The Federal rules restrict any use of the information to criminally investigate or prosecute any alcohol or drug abuse patient.[facility] HospitalIn the event this information is protected by the Federal Confidentiality of Alcohol and Drug Abuse Patient Records regulations: The Federal rules restrict any use of the information to criminally investigate or prosecute any alcohol or drug abuse patient.[facility] HospitalIn the event this information is protected by the Federal Confidentiality of Alcohol and Drug Abuse Patient Records regulations: The Federal rules restrict any use of the information to criminally investigate or prosecute any alcohol or drug abuse patient.[facility] HospitalIn the event this information is protected by the Federal Confidentiality of Alcohol and Drug Abuse Patient Records regulations: The Federal rules restrict any use of the information to criminally investigate or prosecute any alcohol or drug abuse patient.[facility] HospitalIn the event this information is protected by the Federal Confidentiality of Alcohol and Drug Abuse Patient Records regulations: The Federal rules restrict any use of the information to criminally investigate or prosecute any alcohol or drug abuse patient.[facility] HospitalIn the event this information is protected by the Federal Confidentiality of Alcohol and Drug Abuse Patient Records regulations: The Federal rules restrict any use of the information to criminally investigate or prosecute any alcohol or drug abuse patient.[facility] HospitalIn the event this information is protected by the Federal Confidentiality of Alcohol and Drug Abuse Patient Records regulations: The Federal rules restrict any use of the information to criminally investigate or prosecute any alcohol or drug abuse patient.[facility] HospitalIn the event this information is protected by the Federal Confidentiality of Alcohol and Drug Abuse Patient Records regulations: The Federal rules restrict any use of the information to criminally investigate or prosecute any alcohol or drug abuse patient.[facility] HospitalIn the event this information is protected by the Federal Confidentiality of Alcohol and Drug Abuse Patient Records regulations: The Federal rules restrict any use of the information to criminally investigate or prosecute any alcohol or drug abuse patient.[facility] HospitalIn the event this information is protected by the Federal Confidentiality of Alcohol and Drug Abuse Patient Records regulations: The Federal rules restrict any use of the information to criminally investigate or prosecute any alcohol or drug abuse patient.[facility] HospitalIn the event this information is protected by the Federal Confidentiality of Alcohol and Drug Abuse Patient Records regulations: The Federal rules restrict any use of the information to criminally investigate or prosecute any alcohol or drug abuse patient.[facility] HospitalIn the event this information is protected by the Federal Confidentiality of Alcohol and Drug Abuse Patient Records regulations: The Federal rules restrict any use of the information to criminally investigate or prosecute any alcohol or drug abuse patient.[facility] HospitalIn the event this information is protected by the Federal Confidentiality of Alcohol and Drug Abuse Patient Records regulations: The Federal rules restrict any use of the information to criminally investigate or prosecute any alcohol or drug abuse patient.[facility] HospitalIn the event this information is protected by the Federal Confidentiality of Alcohol and Drug Abuse Patient Records regulations: The Federal rules restrict any use of the information to criminally investigate or prosecute any alcohol or drug abuse patient.[facility] HospitalIn the event this information is protected by the Federal Confidentiality of Alcohol and Drug Abuse Patient Records regulations: The Federal rules restrict any use of the information to criminally investigate or prosecute any alcohol or drug abuse patient.[facility] HospitalIn the event this information is protected by the Federal Confidentiality of Alcohol and Drug Abuse Patient Records regulations: The Federal rules restrict any use of the information to criminally investigate or prosecute any alcohol or drug abuse patient.[facility] HospitalIn the event this information is protected by the Federal Confidentiality of Alcohol and Drug Abuse Patient Records regulations: The Federal rules restrict any use of the information to criminally investigate or prosecute any alcohol or drug abuse patient.[facility] HospitalIn the event this information is protected by the Federal Confidentiality of Alcohol and Drug Abuse Patient Records regulations: The Federal rules restrict any use of the information to criminally investigate or prosecute any alcohol or drug abuse patient.[facility] HospitalIn the event this information is protected by the Federal Confidentiality of Alcohol and Drug Abuse Patient Records regulations: The Federal rules restrict any use of the information to criminally investigate or prosecute any alcohol or drug abuse patient.[facility] HospitalIn the event this information is protected by the Federal Confidentiality of Alcohol and Drug Abuse Patient Records regulations: The Federal rules restrict any use of the information to criminally investigate or prosecute any alcohol or drug abuse patient.[facility] HospitalIn the event this information is protected by the Federal Confidentiality of Alcohol and Drug Abuse Patient Records regulations: The Federal rules restrict any use of the information to criminally investigate or prosecute any alcohol or drug abuse patient.[facility] HospitalIn the event this information is protected by the Federal Confidentiality of Alcohol and Drug Abuse Patient Records regulations: The Federal rules restrict any use of the information to criminally investigate or prosecute any alcohol or drug abuse patient.[facility] HospitalIn the event this information is protected by the Federal Confidentiality of Alcohol and Drug Abuse Patient Records regulations: The Federal rules restrict any use of the information to criminally investigate or prosecute any alcohol or drug abuse patient.[facility] HospitalIn the event this information is protected by the Federal Confidentiality of Alcohol and Drug Abuse Patient Records regulations: The Federal rules restrict any use of the information to criminally investigate or prosecute any alcohol or drug abuse patient.[facility] HospitalIn the event this information is protected by the Federal Confidentiality of Alcohol and Drug Abuse Patient Records regulations: The Federal rules restrict any use of the information to criminally investigate or prosecute any alcohol or drug abuse patient.[facility] HospitalIn the event this information is protected by the Federal Confidentiality of Alcohol and Drug Abuse Patient Records regulations: The Federal rules restrict any use of the information to criminally investigate or prosecute any alcohol or drug abuse patient.[facility] HospitalIn the event this information is protected by the Federal Confidentiality of Alcohol and Drug Abuse Patient Records regulations: The Federal rules restrict any use of the information to criminally investigate or prosecute any alcohol or drug abuse patient.[facility] HospitalIn the event this information is protected by the Federal Confidentiality of Alcohol and Drug Abuse Patient Records regulations: The Federal rules restrict any use of the information to criminally investigate or prosecute any alcohol or drug abuse patient.[facility] HospitalIn the event this information is protected by the Federal Confidentiality of Alcohol and Drug Abuse Patient Records regulations: The Federal rules restrict any use of the information to criminally investigate or prosecute any alcohol or drug abuse patient.[facility] HospitalIn the event this information is protected by the Federal Confidentiality of Alcohol and Drug Abuse Patient Records regulations: The Federal rules restrict any use of the information to criminally investigate or prosecute any alcohol or drug abuse patient.[facility] HospitalIn the event this information is protected by the Federal Confidentiality of Alcohol and Drug Abuse Patient Records regulations: The Federal rules restrict any use of the information to criminally investigate or prosecute any alcohol or drug abuse patient.[facility] HospitalIn the event this information is protected by the Federal Confidentiality of Alcohol and Drug Abuse Patient Records regulations: The Federal rules restrict any use of the information to criminally investigate or prosecute any alcohol or drug abuse patient.[facility] HospitalIn the event this information is protected by the Federal Confidentiality of Alcohol and Drug Abuse Patient Records regulations: The Federal rules restrict any use of the information to criminally investigate or prosecute any alcohol or drug abuse patient.[facility] HospitalIn the event this information is protected by the Federal Confidentiality of Alcohol and Drug Abuse Patient Records regulations: The Federal rules restrict any use of the information to criminally investigate or prosecute any alcohol or drug abuse patient.[facility] HospitalIn the event this information is protected by the Federal Confidentiality of Alcohol and Drug Abuse Patient Records regulations: The Federal rules restrict any use of the information to criminally investigate or prosecute any alcohol or drug abuse patient.[facility] HospitalIn the event this information is protected by the Federal Confidentiality of Alcohol and Drug Abuse Patient Records regulations: The Federal rules restrict any use of the information to criminally investigate or prosecute any alcohol or drug abuse patient.[facility] HospitalIn the event this information is protected by the Federal Confidentiality of Alcohol and Drug Abuse Patient Records regulations: The Federal rules restrict any use of the information to criminally investigate or prosecute any alcohol or drug abuse patient.[facility] HospitalIn the event this information is protected by the Federal Confidentiality of Alcohol and Drug Abuse Patient Records regulations: The Federal rules restrict any use of the information to criminally investigate or prosecute any alcohol or drug abuse patient.[facility] HospitalIn the event this information is protected by the Federal Confidentiality of Alcohol and Drug Abuse Patient Records regulations: The Federal rules restrict any use of the information to criminally investigate or prosecute any alcohol or drug abuse patient.[facility] HospitalIn the event this information is protected by the Federal Confidentiality of Alcohol and Drug Abuse Patient Records regulations: The Federal rules restrict any use of the information to criminally investigate or prosecute any alcohol or drug abuse patient.[facility] HospitalIn the event this information is protected by the Federal Confidentiality of Alcohol and Drug Abuse Patient Records regulations: The Federal rules restrict any use of the information to criminally investigate or prosecute any alcohol or drug abuse patient.[facility] HospitalIn the event this information is protected by the Federal Confidentiality of Alcohol and Drug Abuse Patient Records regulations: The Federal rules restrict any use of the information to criminally investigate or prosecute any alcohol or drug abuse patient.[facility] HospitalIn the event this information is protected by the Federal Confidentiality of Alcohol and Drug Abuse Patient Records regulations: The Federal rules restrict any use of the information to criminally investigate or prosecute any alcohol or drug abuse patient.[facility] HospitalIn the event this information is protected by the Federal Confidentiality of Alcohol and Drug Abuse Patient Records regulations: The Federal rules restrict any use of the information to criminally investigate or prosecute any alcohol or drug abuse patient.[facility] HospitalIn the event this information is protected by the Federal Confidentiality of Alcohol and Drug Abuse Patient Records regulations: The Federal rules restrict any use of the information to criminally investigate or prosecute any alcohol or drug abuse patient.[facility] HospitalIn the event this information is protected by the Federal Confidentiality of Alcohol and Drug Abuse Patient Records regulations: The Federal rules restrict any use of the information to criminally investigate or prosecute any alcohol or drug abuse patient.[facility] HospitalIn the event this information is protected by the Federal Confidentiality of Alcohol and Drug Abuse Patient Records regulations: The Federal rules restrict any use of the information to criminally investigate or prosecute any alcohol or drug abuse patient.[facility] HospitalIn the event this information is protected by the Federal Confidentiality of Alcohol and Drug Abuse Patient Records regulations: The Federal rules restrict any use of the information to criminally investigate or prosecute any alcohol or drug abuse patient.[facility] HospitalIn the event this information is protected by the Federal Confidentiality of Alcohol and Drug Abuse Patient Records regulations: The Federal rules restrict any use of the information to criminally investigate or prosecute any alcohol or drug abuse patient.[facility] HospitalIn the event this information is protected by the Federal Confidentiality of Alcohol and Drug Abuse Patient Records regulations: The Federal rules restrict any use of the information to criminally investigate or prosecute any alcohol or drug abuse patient.[facility] HospitalIn the event this information is protected by the Federal Confidentiality of Alcohol and Drug Abuse Patient Records regulations: The Federal rules restrict any use of the information to criminally investigate or prosecute any alcohol or drug abuse patient.[facility] HospitalIn the event this information is protected by the Federal Confidentiality of Alcohol and Drug Abuse Patient Records regulations: The Federal rules restrict any use of the information to criminally investigate or prosecute any alcohol or drug abuse patient.[facility] HospitalIn the event this information is protected by the Federal Confidentiality of Alcohol and Drug Abuse Patient Records regulations: The Federal rules restrict any use of the information to criminally investigate or prosecute any alcohol or drug abuse patient.[facility] HospitalIn the event this information is protected by the Federal Confidentiality of Alcohol and Drug Abuse Patient Records regulations: The Federal rules restrict any use of the information to criminally investigate or prosecute any alcohol or drug abuse patient.[facility] HospitalIn the event this information is protected by the Federal Confidentiality of Alcohol and Drug Abuse Patient Records regulations: The Federal rules restrict any use of the information to criminally investigate or prosecute any alcohol or drug abuse patient.[facility] HospitalIn the event this information is protected by the Federal Confidentiality of Alcohol and Drug Abuse Patient Records regulations: The Federal rules restrict any use of the information to criminally investigate or prosecute any alcohol or drug abuse patient.[facility] HospitalIn the event this information is protected by the Federal Confidentiality of Alcohol and Drug Abuse Patient Records regulations: The Federal rules restrict any use of the information to criminally investigate or prosecute any alcohol or drug abuse patient.[facility] HospitalIn the event this information is protected by the Federal Confidentiality of Alcohol and Drug Abuse Patient Records regulations: The Federal rules restrict any use of the information to criminally investigate or prosecute any alcohol or drug abuse patient.[facility] HospitalIn the event this information is protected by the Federal Confidentiality of Alcohol and Drug Abuse Patient Records regulations: The Federal rules restrict any use of the information to criminally investigate or prosecute any alcohol or drug abuse patient.[facility] HospitalIn the event this information is protected by the Federal Confidentiality of Alcohol and Drug Abuse Patient Records regulations: The Federal rules restrict any use of the information to criminally investigate or prosecute any alcohol or drug abuse patient.[facility] HospitalIn the event this information is protected by the Federal Confidentiality of Alcohol and Drug Abuse Patient Records regulations: The Federal rules restrict any use of the information to criminally investigate or prosecute any alcohol or drug abuse patient.[facility] HospitalIn the event this information is protected by the Federal Confidentiality of Alcohol and Drug Abuse Patient Records regulations: The Federal rules restrict any use of the information to criminally investigate or prosecute any alcohol or drug abuse patient.[facility] HospitalIn the event this information is protected by the Federal Confidentiality of Alcohol and Drug Abuse Patient Records regulations: The Federal rules restrict any use of the information to criminally investigate or prosecute any alcohol or drug abuse patient.[facility] HospitalIn the event this information is protected by the Federal Confidentiality of Alcohol and Drug Abuse Patient Records regulations: The Federal rules restrict any use of the information to criminally investigate or prosecute any alcohol or drug abuse patient.[facility] HospitalIn the event this information is protected by the Federal Confidentiality of Alcohol and Drug Abuse Patient Records regulations: The Federal rules restrict any use of the information to criminally investigate or prosecute any alcohol or drug abuse patient.[facility] HospitalIn the event this information is protected by the Federal Confidentiality of Alcohol and Drug Abuse Patient Records regulations: The Federal rules restrict any use of the information to criminally investigate or prosecute any alcohol or drug abuse patient.[facility] HospitalIn the event this information is protected by the Federal Confidentiality of Alcohol and Drug Abuse Patient Records regulations: The Federal rules restrict any use of the information to criminally investigate or prosecute any alcohol or drug abuse patient.[facility] HospitalIn the event this information is protected by the Federal Confidentiality of Alcohol and Drug Abuse Patient Records regulations: The Federal rules restrict any use of the information to criminally investigate or prosecute any alcohol or drug abuse patient.[facility] HospitalIn the event this information is protected by the Federal Confidentiality of Alcohol and Drug Abuse Patient Records regulations: The Federal rules restrict any use of the information to criminally investigate or prosecute any alcohol or drug abuse patient.[facility] HospitalIn the event this information is protected by the Federal Confidentiality of Alcohol and Drug Abuse Patient Records regulations: The Federal rules restrict any use of the information to criminally investigate or prosecute any alcohol or drug abuse patient.[facility] HospitalIn the event this information is protected by the Federal Confidentiality of Alcohol and Drug Abuse Patient Records regulations: The Federal rules restrict any use of the information to criminally investigate or prosecute any alcohol or drug abuse patient.[facility] HospitalIn the event this information is protected by the Federal Confidentiality of Alcohol and Drug Abuse Patient Records regulations: The Federal rules restrict any use of the information to criminally investigate or prosecute any alcohol or drug abuse patient.[facility] HospitalIn the event this information is protected by the Federal Confidentiality of Alcohol and Drug Abuse Patient Records regulations: The Federal rules restrict any use of the information to criminally investigate or prosecute any alcohol or drug abuse patient.[facility] HospitalIn the event this information is protected by the Federal Confidentiality of Alcohol and Drug Abuse Patient Records regulations: The Federal rules restrict any use of the information to criminally investigate or prosecute any alcohol or drug abuse patient.[facility] HospitalIn the event this information is protected by the Federal Confidentiality of Alcohol and Drug Abuse Patient Records regulations: The Federal rules restrict any use of the information to criminally investigate or prosecute any alcohol or drug abuse patient.[facility] HospitalIn the event this information is protected by the Federal Confidentiality of Alcohol and Drug Abuse Patient Records regulations: The Federal rules restrict any use of the information to criminally investigate or prosecute any alcohol or drug abuse patient.[facility] HospitalIn the event this information is protected by the Federal Confidentiality of Alcohol and Drug Abuse Patient Records regulations: The Federal rules restrict any use of the information to criminally investigate or prosecute any alcohol or drug abuse patient.[facility] HospitalIn the event this information is protected by the Federal Confidentiality of Alcohol and Drug Abuse Patient Records regulations: The Federal rules restrict any use of the information to criminally investigate or prosecute any alcohol or drug abuse patient.[facility] HospitalIn the event this information is protected by the Federal Confidentiality of Alcohol and Drug Abuse Patient Records regulations: The Federal rules restrict any use of the information to criminally investigate or prosecute any alcohol or drug abuse patient.[facility] HospitalIn the event this information is protected by the Federal Confidentiality of Alcohol and Drug Abuse Patient Records regulations: The Federal rules restrict any use of the information to criminally investigate or prosecute any alcohol or drug abuse patient.[facility] HospitalIn the event this information is protected by the Federal Confidentiality of Alcohol and Drug Abuse Patient Records regulations: The Federal rules restrict any use of the information to criminally investigate or prosecute any alcohol or drug abuse patient.[facility] HospitalIn the event this information is protected by the Federal Confidentiality of Alcohol and Drug Abuse Patient Records regulations: The Federal rules restrict any use of the information to criminally investigate or prosecute any alcohol or drug abuse patient.[facility] HospitalIn the event this information is protected by the Federal Confidentiality of Alcohol and Drug Abuse Patient Records regulations: The Federal rules restrict any use of the information to criminally investigate or prosecute any alcohol or drug abuse patient.[facility] HospitalIn the event this information is protected by the Federal Confidentiality of Alcohol and Drug Abuse Patient Records regulations: The Federal rules restrict any use of the information to criminally investigate or prosecute any alcohol or drug abuse patient.[facility] HospitalIn the event this information is protected by the Federal Confidentiality of Alcohol and Drug Abuse Patient Records regulations: The Federal rules restrict any use of the information to criminally investigate or prosecute any alcohol or drug abuse patient.[facility] HospitalIn the event this information is protected by the Federal Confidentiality of Alcohol and Drug Abuse Patient Records regulations: The Federal rules restrict any use of the information to criminally investigate or prosecute any alcohol or drug abuse patient.[facility] HospitalIn the event this information is protected by the Federal Confidentiality of Alcohol and Drug Abuse Patient Records regulations: The Federal rules restrict any use of the information to criminally investigate or prosecute any alcohol or drug abuse patient.[facility] HospitalIn the event this information is protected by the Federal Confidentiality of Alcohol and Drug Abuse Patient Records regulations: The Federal rules restrict any use of the information to criminally investigate or prosecute any alcohol or drug abuse patient.[facility] HospitalIn the event this information is protected by the Federal Confidentiality of Alcohol and Drug Abuse Patient Records regulations: The Federal rules restrict any use of the information to criminally investigate or prosecute any alcohol or drug abuse patient.[facility] HospitalIn the event this information is protected by the Federal Confidentiality of Alcohol and Drug Abuse Patient Records regulations: The Federal rules restrict any use of the information to criminally investigate or prosecute any alcohol or drug abuse patient.[facility] HospitalIn the event this information is protected by the Federal Confidentiality of Alcohol and Drug Abuse Patient Records regulations: The Federal rules restrict any use of the information to criminally investigate or prosecute any alcohol or drug abuse patient.[facility] HospitalIn the event this information is protected by the Federal Confidentiality of Alcohol and Drug Abuse Patient Records regulations: The Federal rules restrict any use of the information to criminally investigate or prosecute any alcohol or drug abuse patient.[facility] HospitalIn the event this information is protected by the Federal Confidentiality of Alcohol and Drug Abuse Patient Records regulations: The Federal rules restrict any use of the information to criminally investigate or prosecute any alcohol or drug abuse patient.[facility] HospitalIn the event this information is protected by the Federal Confidentiality of Alcohol and Drug Abuse Patient Records regulations: The Federal rules restrict any use of the information to criminally investigate or prosecute any alcohol or drug abuse patient.[facility] HospitalIn the event this information is protected by the Federal Confidentiality of Alcohol and Drug Abuse Patient Records regulations: The Federal rules restrict any use of the information to criminally investigate or prosecute any alcohol or drug abuse patient.[facility] HospitalIn the event this information is protected by the Federal Confidentiality of Alcohol and Drug Abuse Patient Records regulations: The Federal rules restrict any use of the information to criminally investigate or prosecute any alcohol or drug abuse patient.[facility] HospitalIn the event this information is protected by the Federal Confidentiality of Alcohol and Drug Abuse Patient Records regulations: The Federal rules restrict any use of the information to criminally investigate or prosecute any alcohol or drug abuse patient.[facility] HospitalIn the event this information is protected by the Federal Confidentiality of Alcohol and Drug Abuse Patient Records regulations: The Federal rules restrict any use of the information to criminally investigate or prosecute any alcohol or drug abuse patient.[facility] HospitalIn the event this information is protected by the Federal Confidentiality of Alcohol and Drug Abuse Patient Records regulations: The Federal rules restrict any use of the information to criminally investigate or prosecute any alcohol or drug abuse patient.[facility] HospitalIn the event this information is protected by the Federal Confidentiality of Alcohol and Drug Abuse Patient Records regulations: The Federal rules restrict any use of the information to criminally investigate or prosecute any alcohol or drug abuse patient.[facility] HospitalIn the event this information is protected by the Federal Confidentiality of Alcohol and Drug Abuse Patient Records regulations: The Federal rules restrict any use of the information to criminally investigate or prosecute any alcohol or drug abuse patient.[facility] HospitalIn the event this information is protected by the Federal Confidentiality of Alcohol and Drug Abuse Patient Records regulations: The Federal rules restrict any use of the information to criminally investigate or prosecute any alcohol or drug abuse patient.[facility] HospitalIn the event this information is protected by the Federal Confidentiality of Alcohol and Drug Abuse Patient Records regulations: The Federal rules restrict any use of the information to criminally investigate or prosecute any alcohol or drug abuse patient.[facility] HospitalIn the event this information is protected by the Federal Confidentiality of Alcohol and Drug Abuse Patient Records regulations: The Federal rules restrict any use of the information to criminally investigate or prosecute any alcohol or drug abuse patient.[facility] HospitalIn the event this information is protected by the Federal Confidentiality of Alcohol and Drug Abuse Patient Records regulations: The Federal rules restrict any use of the information to criminally investigate or prosecute any alcohol or drug abuse patient.[facility] HospitalIn the event this information is protected by the Federal Confidentiality of Alcohol and Drug Abuse Patient Records regulations: The Federal rules restrict any use of the information to criminally investigate or prosecute any alcohol or drug abuse patient.[facility] HospitalIn the event this information is protected by the Federal Confidentiality of Alcohol and Drug Abuse Patient Records regulations: The Federal rules restrict any use of the information to criminally investigate or prosecute any alcohol or drug abuse patient.[facility] HospitalIn the event this information is protected by the Federal Confidentiality of Alcohol and Drug Abuse Patient Records regulations: The Federal rules restrict any use of the information to criminally investigate or prosecute any alcohol or drug abuse patient.[facility] HospitalIn the event this information is protected by the Federal Confidentiality of Alcohol and Drug Abuse Patient Records regulations: The Federal rules restrict any use of the information to criminally investigate or prosecute any alcohol or drug abuse patient.[facility] HospitalIn the event this information is protected by the Federal Confidentiality of Alcohol and Drug Abuse Patient Records regulations: The Federal rules restrict any use of the information to criminally investigate or prosecute any alcohol or drug abuse patient.[facility] HospitalIn the event this information is protected by the Federal Confidentiality of Alcohol and Drug Abuse Patient Records regulations: The Federal rules restrict any use of the information to criminally investigate or prosecute any alcohol or drug abuse patient.[facility] HospitalIn the event this information is protected by the Federal Confidentiality of Alcohol and Drug Abuse Patient Records regulations: The Federal rules restrict any use of the information to criminally investigate or prosecute any alcohol or drug abuse patient.[facility] HospitalIn the event this information is protected by the Federal Confidentiality of Alcohol and Drug Abuse Patient Records regulations: The Federal rules restrict any use of the information to criminally investigate or prosecute any alcohol or drug abuse patient.[facility] HospitalIn the event this information is protected by the Federal Confidentiality of Alcohol and Drug Abuse Patient Records regulations: The Federal rules restrict any use of the information to criminally investigate or prosecute any alcohol or drug abuse patient.[facility] HospitalIn the event this information is protected by the Federal Confidentiality of Alcohol and Drug Abuse Patient Records regulations: The Federal rules restrict any use of the information to criminally investigate or prosecute any alcohol or drug abuse patient.[facility] HospitalIn the event this information is protected by the Federal Confidentiality of Alcohol and Drug Abuse Patient Records regulations: The Federal rules restrict any use of the information to criminally investigate or prosecute any alcohol or drug abuse patient.[facility] HospitalIn the event this information is protected by the Federal Confidentiality of Alcohol and Drug Abuse Patient Records regulations: The Federal rules restrict any use of the information to criminally investigate or prosecute any alcohol or drug abuse patient.[facility] HospitalIn the event this information is protected by the Federal Confidentiality of Alcohol and Drug Abuse Patient Records regulations: The Federal rules restrict any use of the information to criminally investigate or prosecute any alcohol or drug abuse patient.[facility] HospitalIn the event this information is protected by the Federal Confidentiality of Alcohol and Drug Abuse Patient Records regulations: The Federal rules restrict any use of the information to criminally investigate or prosecute any alcohol or drug abuse patient.[facility] HospitalIn the event this information is protected by the Federal Confidentiality of Alcohol and Drug Abuse Patient Records regulations: The Federal rules restrict any use of the information to criminally investigate or prosecute any alcohol or drug abuse patient.[facility] HospitalIn the event this information is protected by the Federal Confidentiality of Alcohol and Drug Abuse Patient Records regulations: The Federal rules restrict any use of the information to criminally investigate or prosecute any alcohol or drug abuse patient.[facility] HospitalIn the event this information is protected by the Federal Confidentiality of Alcohol and Drug Abuse Patient Records regulations: The Federal rules restrict any use of the information to criminally investigate or prosecute any alcohol or drug abuse patient.[facility] HospitalIn the event this information is protected by the Federal Confidentiality of Alcohol and Drug Abuse Patient Records regulations: The Federal rules restrict any use of the information to criminally investigate or prosecute any alcohol or drug abuse patient.[facility] HospitalIn the event this information is protected by the Federal Confidentiality of Alcohol and Drug Abuse Patient Records regulations: The Federal rules restrict any use of the information to criminally investigate or prosecute any alcohol or drug abuse patient.[facility] HospitalIn the event this information is protected by the Federal Confidentiality of Alcohol and Drug Abuse Patient Records regulations: The Federal rules restrict any use of the information to criminally investigate or prosecute any alcohol or drug abuse patient.[facility] HospitalIn the event this information is protected by the Federal Confidentiality of Alcohol and Drug Abuse Patient Records regulations: The Federal rules restrict any use of the information to criminally investigate or prosecute any alcohol or drug abuse patient.[facility] HospitalIn the event this information is protected by the Federal Confidentiality of Alcohol and Drug Abuse Patient Records regulations: The Federal rules restrict any use of the information to criminally investigate or prosecute any alcohol or drug abuse patient.[facility] HospitalIn the event this information is protected by the Federal Confidentiality of Alcohol and Drug Abuse Patient Records regulations: The Federal rules restrict any use of the information to criminally investigate or prosecute any alcohol or drug abuse patient.[facility] HospitalIn the event this information is protected by the Federal Confidentiality of Alcohol and Drug Abuse Patient Records regulations: The Federal rules restrict any use of the information to criminally investigate or prosecute any alcohol or drug abuse patient.[facility] HospitalIn the event this information is protected by the Federal Confidentiality of Alcohol and Drug Abuse Patient Records regulations: The Federal rules restrict any use of the information to criminally investigate or prosecute any alcohol or drug abuse patient.[facility] HospitalIn the event this information is protected by the Federal Confidentiality of Alcohol and Drug Abuse Patient Records regulations: The Federal rules restrict any use of the information to criminally investigate or prosecute any alcohol or drug abuse patient.[facility] HospitalIn the event this information is protected by the Federal Confidentiality of Alcohol and Drug Abuse Patient Records regulations: The Federal rules restrict any use of the information to criminally investigate or prosecute any alcohol or drug abuse patient.[facility] HospitalIn the event this information is protected by the Federal Confidentiality of Alcohol and Drug Abuse Patient Records regulations: The Federal rules restrict any use of the information to criminally investigate or prosecute any alcohol or drug abuse patient.[facility] HospitalIn the event this information is protected by the Federal Confidentiality of Alcohol and Drug Abuse Patient Records regulations: The Federal rules restrict any use of the information to criminally investigate or prosecute any alcohol or drug abuse patient.[facility] HospitalIn the event this information is protected by the Federal Confidentiality of Alcohol and Drug Abuse Patient Records regulations: The Federal rules restrict any use of the information to criminally investigate or prosecute any alcohol or drug abuse patient.[facility] HospitalIn the event this information is protected by the Federal Confidentiality of Alcohol and Drug Abuse Patient Records regulations: The Federal rules restrict any use of the information to criminally investigate or prosecute any alcohol or drug abuse patient.[facility] HospitalIn the event this information is protected by the Federal Confidentiality of Alcohol and Drug Abuse Patient Records regulations: The Federal rules restrict any use of the information to criminally investigate or prosecute any alcohol or drug abuse patient.[facility] HospitalIn the event this information is protected by the Federal Confidentiality of Alcohol and Drug Abuse Patient Records regulations: The Federal rules restrict any use of the information to criminally investigate or prosecute any alcohol or drug abuse patient.[facility] HospitalIn the event this information is protected by the Federal Confidentiality of Alcohol and Drug Abuse Patient Records regulations: The Federal rules restrict any use of the information to criminally investigate or prosecute any alcohol or drug abuse patient.[facility] HospitalIn the event this information is protected by the Federal Confidentiality of Alcohol and Drug Abuse Patient Records regulations: The Federal rules restrict any use of the information to criminally investigate or prosecute any alcohol or drug abuse patient.[facility] HospitalIn the event this information is protected by the Federal Confidentiality of Alcohol and Drug Abuse Patient Records regulations: The Federal rules restrict any use of the information to criminally investigate or prosecute any alcohol or drug abuse patient.[facility] HospitalIn the event this information is protected by the Federal Confidentiality of Alcohol and Drug Abuse Patient Records regulations: The Federal rules restrict any use of the information to criminally investigate or prosecute any alcohol or drug abuse patient.[facility] HospitalIn the event this information is protected by the Federal Confidentiality of Alcohol and Drug Abuse Patient Records regulations: The Federal rules restrict any use of the information to criminally investigate or prosecute any alcohol or drug abuse patient.[facility] HospitalIn the event this information is protected by the Federal Confidentiality of Alcohol and Drug Abuse Patient Records regulations: The Federal rules restrict any use of the information to criminally investigate or prosecute any alcohol or drug abuse patient.[facility] HospitalIn the event this information is protected by the Federal Confidentiality of Alcohol and Drug Abuse Patient Records regulations: The Federal rules restrict any use of the information to criminally investigate or prosecute any alcohol or drug abuse patient.[facility] HospitalIn the event this information is protected by the Federal Confidentiality of Alcohol and Drug Abuse Patient Records regulations: The Federal rules restrict any use of the information to criminally investigate or prosecute any alcohol or drug abuse patient.[facility] HospitalIn the event this information is protected by the Federal Confidentiality of Alcohol and Drug Abuse Patient Records regulations: The Federal rules restrict any use of the information to criminally investigate or prosecute any alcohol or drug abuse patient.[facility] HospitalIn the event this information is protected by the Federal Confidentiality of Alcohol and Drug Abuse Patient Records regulations: The Federal rules restrict any use of the information to criminally investigate or prosecute any alcohol or drug abuse patient.[facility] HospitalIn the event this information is protected by the Federal Confidentiality of Alcohol and Drug Abuse Patient Records regulations: The Federal rules restrict any use of the information to criminally investigate or prosecute any alcohol or drug abuse patient.[facility] HospitalIn the event this information is protected by the Federal Confidentiality of Alcohol and Drug Abuse Patient Records regulations: The Federal rules restrict any use of the information to criminally investigate or prosecute any alcohol or drug abuse patient.[facility] HospitalIn the event this information is protected by the Federal Confidentiality of Alcohol and Drug Abuse Patient Records regulations: The Federal rules restrict any use of the information to criminally investigate or prosecute any alcohol or drug abuse patient.[facility] HospitalIn the event this information is protected by the Federal Confidentiality of Alcohol and Drug Abuse Patient Records regulations: The Federal rules restrict any use of the information to criminally investigate or prosecute any alcohol or drug abuse patient.[facility] HospitalIn the event this information is protected by the Federal Confidentiality of Alcohol and Drug Abuse Patient Records regulations: The Federal rules restrict any use of the information to criminally investigate or prosecute any alcohol or drug abuse patient.[facility] HospitalIn the event this information is protected by the Federal Confidentiality of Alcohol and Drug Abuse Patient Records regulations: The Federal rules restrict any use of the information to criminally investigate or prosecute any alcohol or drug abuse patient.[facility] HospitalIn the event this information is protected by the Federal Confidentiality of Alcohol and Drug Abuse Patient Records regulations: The Federal rules restrict any use of the information to criminally investigate or prosecute any alcohol or drug abuse patient.[facility] HospitalIn the event this information is protected by the Federal Confidentiality of Alcohol and Drug Abuse Patient Records regulations: The Federal rules restrict any use of the information to criminally investigate or prosecute any alcohol or drug abuse patient.[facility] HospitalIn the event this information is protected by the Federal Confidentiality of Alcohol and Drug Abuse Patient Records regulations: The Federal rules restrict any use of the information to criminally investigate or prosecute any alcohol or drug abuse patient.[facility] HospitalIn the event this information is protected by the Federal Confidentiality of Alcohol and Drug Abuse Patient Records regulations: The Federal rules restrict any use of the information to criminally investigate or prosecute any alcohol or drug abuse patient.[facility] HospitalIn the event this information is protected by the Federal Confidentiality of Alcohol and Drug Abuse Patient Records regulations: The Federal rules restrict any use of the information to criminally investigate or prosecute any alcohol or drug abuse patient.[facility] HospitalIn the event this information is protected by the Federal Confidentiality of Alcohol and Drug Abuse Patient Records regulations: The Federal rules restrict any use of the information to criminally investigate or prosecute any alcohol or drug abuse patient.[facility] HospitalIn the event this information is protected by the Federal Confidentiality of Alcohol and Drug Abuse Patient Records regulations: The Federal rules restrict any use of the information to criminally investigate or prosecute any alcohol or drug abuse patient.[facility] HospitalIn the event this information is protected by the Federal Confidentiality of Alcohol and Drug Abuse Patient Records regulations: The Federal rules restrict any use of the information to criminally investigate or prosecute any alcohol or drug abuse patient.[facility] HospitalIn the event this information is protected by the Federal Confidentiality of Alcohol and Drug Abuse Patient Records regulations: The Federal rules restrict any use of the information to criminally investigate or prosecute any alcohol or drug abuse patient.[facility] HospitalIn the event this information is protected by the Federal Confidentiality of Alcohol and Drug Abuse Patient Records regulations: The Federal rules restrict any use of the information to criminally investigate or prosecute any alcohol or drug abuse patient.[facility] HospitalIn the event this information is protected by the Federal Confidentiality of Alcohol and Drug Abuse Patient Records regulations: The Federal rules restrict any use of the information to criminally investigate or prosecute any alcohol or drug abuse patient.[facility] HospitalIn the event this information is protected by the Federal Confidentiality of Alcohol and Drug Abuse Patient Records regulations: The Federal rules restrict any use of the information to criminally investigate or prosecute any alcohol or drug abuse patient.[facility] HospitalIn the event this information is protected by the Federal Confidentiality of Alcohol and Drug Abuse Patient Records regulations: The Federal rules restrict any use of the information to criminally investigate or prosecute any alcohol or drug abuse patient.[facility] HospitalIn the event this information is protected by the Federal Confidentiality of Alcohol and Drug Abuse Patient Records regulations: The Federal rules restrict any use of the information to criminally investigate or prosecute any alcohol or drug abuse patient.[facility] HospitalIn the event this information is protected by the Federal Confidentiality of Alcohol and Drug Abuse Patient Records regulations: The Federal rules restrict any use of the information to criminally investigate or prosecute any alcohol or drug abuse patient.[facility] HospitalIn the event this information is protected by the Federal Confidentiality of Alcohol and Drug Abuse Patient Records regulations: The Federal rules restrict any use of the information to criminally investigate or prosecute any alcohol or drug abuse patient.[facility] HospitalIn the event this information is protected by the Federal Confidentiality of Alcohol and Drug Abuse Patient Records regulations: The Federal rules restrict any use of the information to criminally investigate or prosecute any alcohol or drug abuse patient.[facility] HospitalIn the event this information is protected by the Federal Confidentiality of Alcohol and Drug Abuse Patient Records regulations: The Federal rules restrict any use of the information to criminally investigate or prosecute any alcohol or drug abuse patient.[facility] HospitalIn the event this information is protected by the Federal Confidentiality of Alcohol and Drug Abuse Patient Records regulations: The Federal rules restrict any use of the information to criminally investigate or prosecute any alcohol or drug abuse patient.[facility] HospitalIn the event this information is protected by the Federal Confidentiality of Alcohol and Drug Abuse Patient Records regulations: The Federal rules restrict any use of the information to criminally investigate or prosecute any alcohol or drug abuse patient.[facility] HospitalIn the event this information is protected by the Federal Confidentiality of Alcohol and Drug Abuse Patient Records regulations: The Federal rules restrict any use of the information to criminally investigate or prosecute any alcohol or drug abuse patient.[facility] HospitalIn the event this information is protected by the Federal Confidentiality of Alcohol and Drug Abuse Patient Records regulations: The Federal rules restrict any use of the information to criminally investigate or prosecute any alcohol or drug abuse patient.[facility] HospitalIn the event this information is protected by the Federal Confidentiality of Alcohol and Drug Abuse Patient Records regulations: The Federal rules restrict any use of the information to criminally investigate or prosecute any alcohol or drug abuse patient.[facility] HospitalIn the event this information is protected by the Federal Confidentiality of Alcohol and Drug Abuse Patient Records regulations: The Federal rules restrict any use of the information to criminally investigate or prosecute any alcohol or drug abuse patient.[facility] HospitalIn the event this information is protected by the Federal Confidentiality of Alcohol and Drug Abuse Patient Records regulations: The Federal rules restrict any use of the information to criminally investigate or prosecute any alcohol or drug abuse patient.[facility] HospitalIn the event this information is protected by the Federal Confidentiality of Alcohol and Drug Abuse Patient Records regulations: The Federal rules restrict any use of the information to criminally investigate or prosecute any alcohol or drug abuse patient.[facility] HospitalIn the event this information is protected by the Federal Confidentiality of Alcohol and Drug Abuse Patient Records regulations: The Federal rules restrict any use of the information to criminally investigate or prosecute any alcohol or drug abuse patient.[facility] HospitalIn the event this information is protected by the Federal Confidentiality of Alcohol and Drug Abuse Patient Records regulations: The Federal rules restrict any use of the information to criminally investigate or prosecute any alcohol or drug abuse patient.[facility] HospitalIn the event this information is protected by the Federal Confidentiality of Alcohol and Drug Abuse Patient Records regulations: The Federal rules restrict any use of the information to criminally investigate or prosecute any alcohol or drug abuse patient.[facility] HospitalIn the event this information is protected by the Federal Confidentiality of Alcohol and Drug Abuse Patient Records regulations: The Federal rules restrict any use of the information to criminally investigate or prosecute any alcohol or drug abuse patient.[facility] HospitalIn the event this information is protected by the Federal Confidentiality of Alcohol and Drug Abuse Patient Records regulations: The Federal rules restrict any use of the information to criminally investigate or prosecute any alcohol or drug abuse patient.[facility] HospitalIn the event this information is protected by the Federal Confidentiality of Alcohol and Drug Abuse Patient Records regulations: The Federal rules restrict any use of the information to criminally investigate or prosecute any alcohol or drug abuse patient.[facility] HospitalIn the event this information is protected by the Federal Confidentiality of Alcohol and Drug Abuse Patient Records regulations: The Federal rules restrict any use of the information to criminally investigate or prosecute any alcohol or drug abuse patient.[facility] HospitalIn the event this information is protected by the Federal Confidentiality of Alcohol and Drug Abuse Patient Records regulations: The Federal rules restrict any use of the information to criminally investigate or prosecute any alcohol or drug abuse patient.[facility] HospitalIn the event this information is protected by the Federal Confidentiality of Alcohol and Drug Abuse Patient Records regulations: The Federal rules restrict any use of the information to criminally investigate or prosecute any alcohol or drug abuse patient.[facility] HospitalIn the event this information is protected by the Federal Confidentiality of Alcohol and Drug Abuse Patient Records regulations: The Federal rules restrict any use of the information to criminally investigate or prosecute any alcohol or drug abuse patient.[facility] HospitalIn the event this information is protected by the Federal Confidentiality of Alcohol and Drug Abuse Patient Records regulations: The Federal rules restrict any use of the information to criminally investigate or prosecute any alcohol or drug abuse patient.[facility] HospitalIn the event this information is protected by the Federal Confidentiality of Alcohol and Drug Abuse Patient Records regulations: The Federal rules restrict any use of the information to criminally investigate or prosecute any alcohol or drug abuse patient.[facility] HospitalIn the event this information is protected by the Federal Confidentiality of Alcohol and Drug Abuse Patient Records regulations: The Federal rules restrict any use of the information to criminally investigate or prosecute any alcohol or drug abuse patient.[facility] HospitalIn the event this information is protected by the Federal Confidentiality of Alcohol and Drug Abuse Patient Records regulations: The Federal rules restrict any use of the information to criminally investigate or prosecute any alcohol or drug abuse patient.[facility] HospitalIn the event this information is protected by the Federal Confidentiality of Alcohol and Drug Abuse Patient Records regulations: The Federal rules restrict any use of the information to criminally investigate or prosecute any alcohol or drug abuse patient.[facility] HospitalIn the event this information is protected by the Federal Confidentiality of Alcohol and Drug Abuse Patient Records regulations: The Federal rules restrict any use of the information to criminally investigate or prosecute any alcohol or drug abuse patient.[facility] HospitalIn the event this information is protected by the Federal Confidentiality of Alcohol and Drug Abuse Patient Records regulations: The Federal rules restrict any use of the information to criminally investigate or prosecute any alcohol or drug abuse patient.[facility] HospitalIn the event this information is protected by the Federal Confidentiality of Alcohol and Drug Abuse Patient Records regulations: The Federal rules restrict any use of the information to criminally investigate or prosecute any alcohol or drug abuse patient.[facility] HospitalIn the event this information is protected by the Federal Confidentiality of Alcohol and Drug Abuse Patient Records regulations: The Federal rules restrict any use of the information to criminally investigate or prosecute any alcohol or drug abuse patient.[facility] HospitalIn the event this information is protected by the Federal Confidentiality of Alcohol and Drug Abuse Patient Records regulations: The Federal rules restrict any use of the information to criminally investigate or prosecute any alcohol or drug abuse patient.[facility] HospitalIn the event this information is protected by the Federal Confidentiality of Alcohol and Drug Abuse Patient Records regulations: The Federal rules restrict any use of the information to criminally investigate or prosecute any alcohol or drug abuse patient.[facility] HospitalIn the event this information is protected by the Federal Confidentiality of Alcohol and Drug Abuse Patient Records regulations: The Federal rules restrict any use of the information to criminally investigate or prosecute any alcohol or drug abuse patient.[facility] HospitalIn the event this information is protected by the Federal Confidentiality of Alcohol and Drug Abuse Patient Records regulations: The Federal rules restrict any use of the information to criminally investigate or prosecute any alcohol or drug abuse patient.[facility] HospitalIn the event this information is protected by the Federal Confidentiality of Alcohol and Drug Abuse Patient Records regulations: The Federal rules restrict any use of the information to criminally investigate or prosecute any alcohol or drug abuse patient.[facility] HospitalIn the event this information is protected by the Federal Confidentiality of Alcohol and Drug Abuse Patient Records regulations: The Federal rules restrict any use of the information to criminally investigate or prosecute any alcohol or drug abuse patient.[facility] HospitalIn the event this information is protected by the Federal Confidentiality of Alcohol and Drug Abuse Patient Records regulations: The Federal rules restrict any use of the information to criminally investigate or prosecute any alcohol or drug abuse patient.[facility] HospitalIn the event this information is protected by the Federal Confidentiality of Alcohol and Drug Abuse Patient Records regulations: The Federal rules restrict any use of the information to criminally investigate or prosecute any alcohol or drug abuse patient.[facility] HospitalIn the event this information is protected by the Federal Confidentiality of Alcohol and Drug Abuse Patient Records regulations: The Federal rules restrict any use of the information to criminally investigate or prosecute any alcohol or drug abuse patient.[facility] HospitalIn the event this information is protected by the Federal Confidentiality of Alcohol and Drug Abuse Patient Records regulations: The Federal rules restrict any use of the information to criminally investigate or prosecute any alcohol or drug abuse patient.[facility] HospitalIn the event this information is protected by the Federal Confidentiality of Alcohol and Drug Abuse Patient Records regulations: The Federal rules restrict any use of the information to criminally investigate or prosecute any alcohol or drug abuse patient.[facility] HospitalIn the event this information is protected by the Federal Confidentiality of Alcohol and Drug Abuse Patient Records regulations: The Federal rules restrict any use of the information to criminally investigate or prosecute any alcohol or drug abuse patient.[facility] HospitalIn the event this information is protected by the Federal Confidentiality of Alcohol and Drug Abuse Patient Records regulations: The Federal rules restrict any use of the information to criminally investigate or prosecute any alcohol or drug abuse patient.[facility] HospitalIn the event this information is protected by the Federal Confidentiality of Alcohol and Drug Abuse Patient Records regulations: The Federal rules restrict any use of the information to criminally investigate or prosecute any alcohol or drug abuse patient.[facility] HospitalIn the event this information is protected by the Federal Confidentiality of Alcohol and Drug Abuse Patient Records regulations: The Federal rules restrict any use of the information to criminally investigate or prosecute any alcohol or drug abuse patient.[facility] HospitalIn the event this information is protected by the Federal Confidentiality of Alcohol and Drug Abuse Patient Records regulations: The Federal rules restrict any use of the information to criminally investigate or prosecute any alcohol or drug abuse patient.[facility] HospitalIn the event this information is protected by the Federal Confidentiality of Alcohol and Drug Abuse Patient Records regulations: The Federal rules restrict any use of the information to criminally investigate or prosecute any alcohol or drug abuse patient.[facility] HospitalIn the event this information is protected by the Federal Confidentiality of Alcohol and Drug Abuse Patient Records regulations: The Federal rules restrict any use of the information to criminally investigate or prosecute any alcohol or drug abuse patient.[facility] HospitalIn the event this information is protected by the Federal Confidentiality of Alcohol and Drug Abuse Patient Records regulations: The Federal rules restrict any use of the information to criminally investigate or prosecute any alcohol or drug abuse patient.[facility] HospitalIn the event this information is protected by the Federal Confidentiality of Alcohol and Drug Abuse Patient Records regulations: The Federal rules restrict any use of the information to criminally investigate or prosecute any alcohol or drug abuse patient.[facility] HospitalIn the event this information is protected by the Federal Confidentiality of Alcohol and Drug Abuse Patient Records regulations: The Federal rules restrict any use of the information to criminally investigate or prosecute any alcohol or drug abuse patient.[facility] HospitalIn the event this information is protected by the Federal Confidentiality of Alcohol and Drug Abuse Patient Records regulations: The Federal rules restrict any use of the information to criminally investigate or prosecute any alcohol or drug abuse patient.[facility] HospitalIn the event this information is protected by the Federal Confidentiality of Alcohol and Drug Abuse Patient Records regulations: The Federal rules restrict any use of the information to criminally investigate or prosecute any alcohol or drug abuse patient.[facility] HospitalIn the event this information is protected by the Federal Confidentiality of Alcohol and Drug Abuse Patient Records regulations: The Federal rules restrict any use of the information to criminally investigate or prosecute any alcohol or drug abuse patient.[facility] HospitalIn the event this information is protected by the Federal Confidentiality of Alcohol and Drug Abuse Patient Records regulations: The Federal rules restrict any use of the information to criminally investigate or prosecute any alcohol or drug abuse patient.[facility] HospitalIn the event this information is protected by the Federal Confidentiality of Alcohol and Drug Abuse Patient Records regulations: The Federal rules restrict any use of the information to criminally investigate or prosecute any alcohol or drug abuse patient.[facility] HospitalIn the event this information is protected by the Federal Confidentiality of Alcohol and Drug Abuse Patient Records regulations: The Federal rules restrict any use of the information to criminally investigate or prosecute any alcohol or drug abuse patient.[facility] HospitalIn the event this information is protected by the Federal Confidentiality of Alcohol and Drug Abuse Patient Records regulations: The Federal rules restrict any use of the information to criminally investigate or prosecute any alcohol or drug abuse patient.[facility] HospitalIn the event this information is protected by the Federal Confidentiality of Alcohol and Drug Abuse Patient Records regulations: The Federal rules restrict any use of the information to criminally investigate or prosecute any alcohol or drug abuse patient.[facility] HospitalIn the event this information is protected by the Federal Confidentiality of Alcohol and Drug Abuse Patient Records regulations: The Federal rules restrict any use of the information to criminally investigate or prosecute any alcohol or drug abuse patient.[facility] HospitalIn the event this information is protected by the Federal Confidentiality of Alcohol and Drug Abuse Patient Records regulations: The Federal rules restrict any use of the information to criminally investigate or prosecute any alcohol or drug abuse patient.[facility] HospitalIn the event this information is protected by the Federal Confidentiality of Alcohol and Drug Abuse Patient Records regulations: The Federal rules restrict any use of the information to criminally investigate or prosecute any alcohol or drug abuse patient.[facility] HospitalIn the event this information is protected by the Federal Confidentiality of Alcohol and Drug Abuse Patient Records regulations: The Federal rules restrict any use of the information to criminally investigate or prosecute any alcohol or drug abuse patient.[facility] HospitalIn the event this information is protected by the Federal Confidentiality of Alcohol and Drug Abuse Patient Records regulations: The Federal rules restrict any use of the information to criminally investigate or prosecute any alcohol or drug abuse patient.[facility] HospitalIn the event this information is protected by the Federal Confidentiality of Alcohol and Drug Abuse Patient Records regulations: The Federal rules restrict any use of the information to criminally investigate or prosecute any alcohol or drug abuse patient.[facility] HospitalIn the event this information is protected by the Federal Confidentiality of Alcohol and Drug Abuse Patient Records regulations: The Federal rules restrict any use of the information to criminally investigate or prosecute any alcohol or drug abuse patient.[facility] HospitalIn the event this information is protected by the Federal Confidentiality of Alcohol and Drug Abuse Patient Records regulations: The Federal rules restrict any use of the information to criminally investigate or prosecute any alcohol or drug abuse patient.[facility] HospitalIn the event this information is protected by the Federal Confidentiality of Alcohol and Drug Abuse Patient Records regulations: The Federal rules restrict any use of the information to criminally investigate or prosecute any alcohol or drug abuse patient.[facility] HospitalIn the event this information is protected by the Federal Confidentiality of Alcohol and Drug Abuse Patient Records regulations: The Federal rules restrict any use of the information to criminally investigate or prosecute any alcohol or drug abuse patient.[facility] HospitalIn the event this information is protected by the Federal Confidentiality of Alcohol and Drug Abuse Patient Records regulations: The Federal rules restrict any use of the information to criminally investigate or prosecute any alcohol or drug abuse patient.[facility] HospitalIn the event this information is protected by the Federal Confidentiality of Alcohol and Drug Abuse Patient Records regulations: The Federal rules restrict any use of the information to criminally investigate or prosecute any alcohol or drug abuse patient.[facility] HospitalIn the event this information is protected by the Federal Confidentiality of Alcohol and Drug Abuse Patient Records regulations: The Federal rules restrict any use of the information to criminally investigate or prosecute any alcohol or drug abuse patient.[facility] HospitalIn the event this information is protected by the Federal Confidentiality of Alcohol and Drug Abuse Patient Records regulations: The Federal rules restrict any use of the information to criminally investigate or prosecute any alcohol or drug abuse patient.[facility] HospitalIn the event this information is protected by the Federal Confidentiality of Alcohol and Drug Abuse Patient Records regulations: The Federal rules restrict any use of the information to criminally investigate or prosecute any alcohol or drug abuse patient.[facility] HospitalIn the event this information is protected by the Federal Confidentiality of Alcohol and Drug Abuse Patient Records regulations: The Federal rules restrict any use of the information to criminally investigate or prosecute any alcohol or drug abuse patient.[facility] HospitalIn the event this information is protected by the Federal Confidentiality of Alcohol and Drug Abuse Patient Records regulations: The Federal rules restrict any use of the information to criminally investigate or prosecute any alcohol or drug abuse patient.[facility] HospitalIn the event this information is protected by the Federal Confidentiality of Alcohol and Drug Abuse Patient Records regulations: The Federal rules restrict any use of the information to criminally investigate or prosecute any alcohol or drug abuse patient.[facility] HospitalIn the event this information is protected by the Federal Confidentiality of Alcohol and Drug Abuse Patient Records regulations: The Federal rules restrict any use of the information to criminally investigate or prosecute any alcohol or drug abuse patient.[facility] HospitalIn the event this information is protected by the Federal Confidentiality of Alcohol and Drug Abuse Patient Records regulations: The Federal rules restrict any use of the information to criminally investigate or prosecute any alcohol or drug abuse patient.[facility] HospitalIn the event this information is protected by the Federal Confidentiality of Alcohol and Drug Abuse Patient Records regulations: The Federal rules restrict any use of the information to criminally investigate or prosecute any alcohol or drug abuse patient.[facility] HospitalIn the event this information is protected by the Federal Confidentiality of Alcohol and Drug Abuse Patient Records regulations: The Federal rules restrict any use of the information to criminally investigate or prosecute any alcohol or drug abuse patient.[facility] HospitalIn the event this information is protected by the Federal Confidentiality of Alcohol and Drug Abuse Patient Records regulations: The Federal rules restrict any use of the information to criminally investigate or prosecute any alcohol or drug abuse patient.[facility] HospitalIn the event this information is protected by the Federal Confidentiality of Alcohol and Drug Abuse Patient Records regulations: The Federal rules restrict any use of the information to criminally investigate or prosecute any alcohol or drug abuse patient.[facility] HospitalIn the event this information is protected by the Federal Confidentiality of Alcohol and Drug Abuse Patient Records regulations: The Federal rules restrict any use of the information to criminally investigate or prosecute any alcohol or drug abuse patient.[facility] HospitalIn the event this information is protected by the Federal Confidentiality of Alcohol and Drug Abuse Patient Records regulations: The Federal rules restrict any use of the information to criminally investigate or prosecute any alcohol or drug abuse patient.[facility] HospitalIn the event this information is protected by the Federal Confidentiality of Alcohol and Drug Abuse Patient Records regulations: The Federal rules restrict any use of the information to criminally investigate or prosecute any alcohol or drug abuse patient.[facility] HospitalIn the event this information is protected by the Federal Confidentiality of Alcohol and Drug Abuse Patient Records regulations: The Federal rules restrict any use of the information to criminally investigate or prosecute any alcohol or drug abuse patient.[facility] HospitalIn the event this information is protected by the Federal Confidentiality of Alcohol and Drug Abuse Patient Records regulations: The Federal rules restrict any use of the information to criminally investigate or prosecute any alcohol or drug abuse patient.[facility] HospitalIn the event this information is protected by the Federal Confidentiality of Alcohol and Drug Abuse Patient Records regulations: The Federal rules restrict any use of the information to criminally investigate or prosecute any alcohol or drug abuse patient.[facility] HospitalIn the event this information is protected by the Federal Confidentiality of Alcohol and Drug Abuse Patient Records regulations: The Federal rules restrict any use of the information to criminally investigate or prosecute any alcohol or drug abuse patient.[facility] HospitalIn the event this information is protected by the Federal Confidentiality of Alcohol and Drug Abuse Patient Records regulations: The Federal rules restrict any use of the information to criminally investigate or prosecute any alcohol or drug abuse patient.[facility] HospitalIn the event this information is protected by the Federal Confidentiality of Alcohol and Drug Abuse Patient Records regulations: The Federal rules restrict any use of the information to criminally investigate or prosecute any alcohol or drug abuse patient.[facility] HospitalIn the event this information is protected by the Federal Confidentiality of Alcohol and Drug Abuse Patient Records regulations: The Federal rules restrict any use of the information to criminally investigate or prosecute any alcohol or drug abuse patient.[facility] HospitalIn the event this information is protected by the Federal Confidentiality of Alcohol and Drug Abuse Patient Records regulations: The Federal rules restrict any use of the information to criminally investigate or prosecute any alcohol or drug abuse patient.[facility] HospitalIn the event this information is protected by the Federal Confidentiality of Alcohol and Drug Abuse Patient Records regulations: The Federal rules restrict any use of the information to criminally investigate or prosecute any alcohol or drug abuse patient.[facility] HospitalIn the event this information is protected by the Federal Confidentiality of Alcohol and Drug Abuse Patient Records regulations: The Federal rules restrict any use of the information to criminally investigate or prosecute any alcohol or drug abuse patient.[facility] Reason for Visit (unrecogniz ed section and content) Reason Comments Lymphoma Specialty Diagnoses / Procedures Referred By Contac t Referred To Contact Hematology / HEMATOLOGY/ONCOLOGY Diagnoses Follow-up exam 3 Month Lab Follow Up 12/24-R/S From 02/09 Called Spoke With Pt Regarding This Appt Procedures OFFICE/OUTPATIENT ESTABLISHED HIGH MDM 40 MIN EST PATIENT Self Ruperto Ledezma MD [address] [place] [address] [place] [address] Phone: tel: fax: Referral ID Status Reason Start Date Expiration Date V isits Requested Visits Authorized [id number] Authorized 02/19/2024 02/17/2025 99 99 Reason Comments Hospital F/U Specialty Diagnoses / Procedures Referred By Contac t Referred To Contact Pulmonary Disease / PULMONARY MEDICINE Diagnoses Follow up Procedures RI EST PULM GENERAL Self 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, HEAT READER.SEWAGE DISPOSAL ENGINEER [address] [place] [address] Referral ID Status Reason Start Date Expiration Date V isits Requested Visits Authorized [id number] Authorized 12/16/2023 02/18/2024 99 99 Reason Comments ED Follow-up Specialty Diagnoses / Procedures Referred By Contac t Referred To Contact [facility] [place] / PULMONARY MEDICINE Diagnoses Pneumonia Pneumonia, [facility] Follow up, discharged on 04/04 Procedures RI [facility] GENERAL Bee Vail MD [address] [place] [address] [place] [address] Carole Ruano, HEAT READER.SEWAGE DISPOSAL ENGINEER [address] [place] [address] Referral ID Status Reason Start Date Expiration Date V isits Requested Visits Authorized [id number] Authorized 04/18/2023 02/18/2024 99 99 Reason Comments 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 Diagnoses / Procedures Referred By Contac t Referred To Contact Hematology / HEMATOLOGY/ONCOLOGY Diagnoses 8 week lab Procedures EST PATIENT Bee Vail MD [address] [place] [phone] Ruperto Ledezma MD [address] [place] [address] [place] [address] Referral ID Status Reason Start Date Expiration Date Visits Re quested Visits Authorized [id number] Closed 04/16/2023 02/18/2024 1 1 Reason Comments Established Patient Pembro and follow up Specialty Diagnoses / Procedures Referred By Contac t Referred To Contact Hematology/Oncology / HEMATOLOGY/ONCOLOGY Diagnoses OV ; TX after Procedures EST PATIENT Lamin Stevenson B [address] [place] [address] Sylvia Mancilla APRN.SEWAGE DISPOSAL ENGINEER [address] [place] [address] Referral ID Status Reason Start Date Expiration Date V isits Requested Visits Authorized [id number] Authorized 10/25/2021 01/22/2022 99 99 Reason Comments Chemotherapy Treatment keytruda Specialty Diagnoses / Procedures Referred By Contac t Referred To Contact 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) Procedures [place] [address] [place] [address] [facility] [place] [address] [place] [address] Referral ID Status Reason Start Date Expiration Date V isits Requested Visits Authorized [id number] Authorized 12/11/2019 04/24/2022 99 99 Reason Comments Refill Request Reason Comments Established Patient Pain Anxiety Reason Comments Chemotherapy Treatment Specialty Diagnoses / Procedures [facility] Referred To Contact 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) [place] [address] [place] [address] [facility] [place] [address] [place] [address] Referral ID Status Reason Start Date Expiration Date V isits Requested Visits Authorized [id number] Authorized 12/11/2019 03/10/2020 1 1 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 Reason Onset Date Comments Refill Request 05/17/2021 Reason Comments Care Coordination sinus symptoms Reason Onset Date Comments Refill Request 06/06/2021 Reason Onset Date Comments Refill Request 06/15/2021 Reason Onset Date Comments Refill Request 06/30/2021 Specialty Diagnoses / Procedures [facility] Referred To Contact 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) [place] [address] [place] [address] [facility] [place] [address] [place] [address] Reason Onset Date Comments Refill Request 2021 Reason Comments LESION, SKIN Reason Comments Care Coordination Pall med referral Reason Onset Date Comments Refill Request 08/14/2021 Reason Onset Date Comments Refill Request 08/30/2021 Reason Onset Date Comments Refill Request 09/02/2021 Reason Onset Date Comments Refill Request 09/03/2021 Reason Comments Derm Problem Hs lesions Reason Onset Date Comments Refill Request 09/11/2021 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 Comments 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 Follow Up Reason Onset Date Comments Refill Request 10/04/2021 Reason Onset Date Comments Refill Request 10/16/2021 Reason Comments Established Patient Pembro infusion Specialty Diagnoses / Procedures Referred By Contac t Referred To Contact Hematology/Oncology / HEMATOLOGY/ONCOLOGY Diagnoses OV ; TX after Procedures EST PATIENT Quintin Stevensonbh B [address] [place] [address] Sylvia Mancilla APRN.SEWAGE DISPOSAL ENGINEER [address] [place] [address] Reason Comments Follow Up Pain Insomnia Reason Onset Date Comments Refill Request 10/31/2021 Reason Onset Date Comments Refill Request 11/07/2021 Reason Comments Orders Reason Comments Established Patient Specialty Diagnoses / Procedures Referred By Contac t Referred To Contact 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) Procedures [place] [address] [place] [address] Delfino [facility] [place] [address] [place] [address] Referral ID Status Reason Start Date Expiration Date V isits Requested Visits Authorized [id number] Pending Review 12/11/2019 04/24/2022 99 99 Reason Onset Date Comments Refill Request 12/04/2021 Reason Comments Acne Specialty Diagnoses / Procedures Referred By Contac t Referred To Contact Dermatology / DERMATOLOGY Diagnoses ACNE Procedures EST [facility] GENERAL Self Nova Leija, HEAT READER.SEWAGE DISPOSAL ENGINEER [address] [place] [address] Referral ID Status Reason Start Date Expiration Date V isits Requested Visits Authorized [id number] Closed Financial Clearance Required - OON Payor [...] and infusion after Procedures [place] [address] [place] [address] [place] [address] [place] [address] Referral ID Status Reason Start Date Expiration Date Visits Re quested Visits Authorized [id number] Closed 02/27/2022 03/30/2022 1 1 Reason Onset Date Comments Refill Request 03/15/2022 Reason Comments Cancer Reason Comments Patient Education Reason Comments Chemotherapy Treatment Keytruda Referral ID Status Reason Start Date Expiration Date V isits Requested Visits Authorized [id number] Authorized 12/11/2019 10/26/2022 99 99 Reason Onset [...] HEMATOLOGY/ONCOLOGY Diagnoses Acute cough OV with Dr. Hernandez on 06/12 Procedures OFFICE/OUTPATIENT NEW HIGH MDM 60-74 MINUTES OFFICE/OUTPATIENT ESTABLISHED HIGH MDM 40-54 MIN EST PATIENT Bee Vail MD [address] [facility] [place] [place] [address] [place] [address] [place] [address] Referral ID Status Reason Start Date Expiration Date V isits Requested Visits Authorized [id number] Authorized 05/23/2022 05/24/2023 99 99 Reason Onset Date Comments Refill Request 06/11/2022 Reason Comments New Medication Reason Onset Date Comments Refill Request 07/16/[address] Specialty Diagnoses / Procedures Referred By Contac t Referred To Contact Hematology/Oncology / HEMATOLOGY/ONCOLOGY Diagnoses Acute cough OV with Dr. Hernandez on 06/12 Procedures OFFICE/OUTPATIENT NEW HIGH MDM 60-74 MINUTES OFFICE/OUTPATIENT ESTABLISHED HIGH MDM 40-54 MIN EST PATIENT Bee Vail MD [address] [facility] [address] [place] [address] [place] [address] Reason Comments Dyspnea On Exertion Simple chronic [...] MDM 40-54 MIN RI EST PULM GENERAL [place]ail [place] [address] [place] [address] [place] [address] Don Chan APRN.SEWAGE DISPOSAL ENGINEER [address] [facility] [place] [address] Referral ID Status Reason Start Date Expiration Date Visits Re quested Visits Authorized [id number] Closed 06/26/2022 06/27/2023 1 1 Reason Comments [...] MDM 40-54 MIN RI EST PULM GENERAL Bee Vail MD [address] [place] [address] Don Chan, LORY.SEWAGE DISPOSAL ENGINEER [address] [place] [address] Referral ID Status Reason Start Date Expiration Date V isits Requested Visits Authorized [id number] Authorized 05/22/2022 05/23/2023 99 99 Specialty Diagnoses / Procedures Referred By Contac t Referred To Contact CT IMAGING Diagnoses Acute cough Procedures CT CHEST WO IVCON DIAGNOSTIC COMPUTED TOMOGRAPHY THORAX W/[place] [address] [place] [address] Ct Imaging Referral ID Status Reason Start Date Expiration Date V isits Requested Visits Authorized [id number] Closed Auto-Generate d Referral 05/22/2022 06/21/2023 1 [...] / HEMATOLOGY/ONCOLOGY Diagnoses Ref by Dr Cyn Hernandez due to pt wanting closer to home DX: Hodgkins lymphomaPT REQ BRM Procedures OFFICE/OUTPATIENT NEW HIGH MDM 60-74 MINUTES NEW PATIENT MED ONC Bee Vail MD [address] [facility] [place] [address] Ruperto Ledezma MD [address] [place] [address] [place] [address] Referral ID Status Reason Start Date Expiration Date Visits Re quested Visits Authorized [id number] Closed 12/26/2022 12/27/2023 1 1 Reason Comments Results Reason Onset Date Comments Refill Request 01/06/2023 Reason Comments Spirometry Specialty Diagnoses / Procedures [facility] Referred To Contact [facility] Diagnoses Chronic cough Procedures LUNG DIFFUSION CAPACITY (DLCO) DIFFUSING CAPACITY Don Chan, HEAT READER.SEWAGE DISPOSAL ENGINEER [address] [place] [address] [facility] [place] [address] [place] [address] Referral ID Status Reason Start Date Expiration Date V isits Requested Visits Authorized [id number] Closed Auto-Generate d Referral 01/08/2023 02/17/2023 1 1 Specialty Diagnoses / Procedures Referred By [facility] t Referred To Contact [facility] [place] Diagnoses Bronchitis Procedures NITRIC OXIDE, EXHALED NITRIC OXIDE GAS DETERMINATION Don Chan, HEAT READER.SEWAGE DISPOSAL ENGINEER [address] [facility] [place] [address] [facility] [address] [place] [id number] Referral ID Status Reason Start Date Expiration Date V isits Requested Visits Authorized [id number] Closed Auto-Generate d Referral 01/08/2023 02/17/2023 1 1 Reason Comments Shortness of Breath Wheezing Specialty Diagnoses / Procedures Referred By [facility] Referred To Contact Pulmonary Disease / PULMONARY MEDICINE Diagnoses Bronchitis, not specified as acute or chronic Bronchitis, not specified as acute or chronic [J40] Procedures OFFICE/OUTPATIENT ESTABLISHED HIGH MDM 40 MIN OFFICE/OUTPATIENT ESTABLISHED MOD MDM 30 MIN OFFICE/OUTPATIENT ESTABLISHED LOW MDM 20 MIN OFFICE/OUTPATIENT ESTABLISHED SF MDM 10 MIN RI EST PULM GENERAL Don Chan, HEAT READER.SEWAGE DISPOSAL ENGINEER [address] [place] [id number] 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 HEAT READER.SEWAGE DISPOSAL ENGINEER [address] [place] [address] Referral ID Status Reason Start Date Expiration Date Visits Re quested Visits Authorized [id number] Closed 03/12/2023 02/18/2024 1 1 Specialty Diagnoses / Procedures Referred By Contac t Referred To Contact [facility] Diagnoses Bronchitis, not specified as acute or chronic Procedures SPIROMETRY - BASELINE AND POST DILATOR BRNCDILAT RSPSE SPMTRY PRE&POST-BRNCDILAT ADMN Don Chan, HEAT READER.SEWAGE DISPOSAL ENGINEER [address] [place] [address] [facility] [place] [address] [place] [address] Referral ID Status Reason Start Date Expiration Date V isits Requested Visits Authorized [id number] Closed Auto-Generate d Referral 02/14/2023 03/15/2024 1 1 Reason Comments Med Change Request Reason Comments Lab Orders Reason Onset Date Comments Refill Request 04/08/2023 Reason Comments Lymphoma Follow up Specialty Diagnoses / Procedures Referred By Contac t Referred To Contact [facility] [place] / PULMONARY MEDICINE Diagnoses Pneumonia Pneumonia, [facility] Follow up, discharged on 04/04 Procedures RI [facility] PUL Bee Galvan MD [address] [facility] [place] [address] Carole Ruano, HEAT READER.SEWAGE DISPOSAL ENGINEER [address] [place] [address] Reason Onset Date Comments Refill Request 05/12/2023 Reason Comments Throat Problem Specialty Diagnoses / Procedures Referred By Contac t Referred To Contact Ent - Otolaryngology Diagnoses Dysphagia, unspecified type Hoarseness Procedures CONSULT TO ENT OFFICE/OUTPATIENT [facility] 60 MINUTES 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, HEAT READER.SEWAGE DISPOSAL ENGINEER [address] [facility] [place] [address] Referral ID Status Reason Start Date Expiration Date V isits Requested Visits Authorized [id number] Closed PCP Requested Referral 03/28/2023 03/27/2024 1 [...] Follow-up exam ok per Dr. Carver Ms. Weller also needs to be added onto Dr. Carver's schedule at [place] on Saturday06/28/23 at 11 am (it is a hospital day for her but adding her on per Dr. Carver). Dr. Carver would also like her put on the cancellation list for a sooner appt. Procedures OFFICE/OUTPATIENT ESTABLISHED SF MDM 10 MIN OFFICE/OUTPATIENT ESTABLISHED LOW MDM 20 MIN OFFICE/OUTPATIENT ESTABLISHED MOD MDM 30 MIN OFFICE/OUTPATIENT ESTABLISHED HIGH MDM 40 MIN RI EST PULM Bee Galvan MD [address] [facility] [place] [address] [place] [address] [place] [address] Referral ID Status Reason Start Date Expiration Date V isits Requested Visits Authorized [id number] Authorized 06/14/2023 02/18/2024 99 9 Reason Comments Speech Instrumental Swallow Eval Speech Discharge Specialty Diagnoses / Procedures Referred By Contac t Referred To Contact XR IMAGING Diagnoses Dysphagia, unspecified type Procedures XR MODIFIED BARIUM SWALLOW W SPEECH THERAPY RADIOLOGIC EXAM SWALLOW FUNCTION CONTRAST STUDY Anil Franco PA-C [address] [place] [address] [place] [address] Referral ID Status Reason Start Date Expiration Date V isits Requested Visits Authorized [id number] Closed Auto-Generate d Referral 05/22/2023 06/20/2024 1 1 Reason Comments Radio GI Main HB6 Specialty Diagnoses / Procedures Referred By Contac t Referred To Contact XR IMAGING Diagnoses Dysphagia, unspecified type Gastroesophageal reflux disease, unspecified whether esophagitis present Procedures XR ESOPHAGRAM RADIOLOGIC EXAM ESOPHAGUS SINGLE CONTRAST STUDY Anil Franco PA-C [address] [place] [address] [place] [address] Referral ID Status Reason Start Date Expiration Date V isits Requested Visits Authorized [id number] Closed Auto-Generate d Referral 05/22/2023 06/20/2024 1 [...] MINUTES JARAD [employer] Sherly Bruner PA-C [facility] [address] [place] [address] Sherly Bruner PA-C [address] [place] [address] Referral ID Status Reason Start Date Expiration Date Visits Re quested Visits Authorized [id number] Closed 07/31/2023 02/18/2024 1 1 Reason Comments Follow Up Specialty Diagnoses / Procedures Referred By Contact Referred To Contact Ent - Otolaryngology / ENT-OTOLARYNGOLOGY Diagnoses Return for Follow up after MBS, XR esophagram; sooner if clinically indicated.. Procedures EST HNI PATIENT Anil Franco PA-C [address] [place] [address] Anil Franco PA-C [address] [place] [address] Referral ID Status Reason Start Date Expiration Date Visits Re quested Visits Authorized [id number] Closed 07/17/2023 02/18/2024 1 1 Reason Onset Date Comments Refill Request 09/30/2023 Reason Comments New Patient Evaluation PsA Specialty Diagnoses / Procedures Referred By Contelizabeth t Referred To Contact Rheumatology Diagnoses Psoriatic arthritis (HCC) Procedures CONSULT TO RHEUM/IMMUN DISEASE OFFICE/OUTPATIENT NEW HIGH MDM 60-74 MINUTES Irene Han APRN.SEWAGE DISPOSAL ENGINEER [address] [place] [address] [facility] [address] Referral ID Status Reason Start Date Expiration Date Visits Requested Visits Authorized [id number] Authorized PCP Requested Referral 06/19/2023 02/18/2024 99 99 Specialty Diagnoses / Procedures Referred By Contac t Referred To Contact [facility] Diagnoses Pulmonary hypertension (HCC) Procedures OXIMETRY WITH AMBULATION NONINVASIVE EAR/PULSE OXIMETRY Carole Morales APRN.SEWAGE DISPOSAL ENGINEER [address] [place] [address] [facility] [place] [address] [place] [address] Referral ID Status Reason Start Date Expiration Date V isits Requested Visits Authorized [id number] Closed Auto-Generate d Referral 08/06/2023 09/04/2024 1 1 Reason Comments Follow Up Reason Comments Radiology NM Specialty Diagnoses / Procedures Referred By Contac t Referred To Contact MOLECULAR & FUNCTIONAL IMAGING 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) Procedures NM PET/CT SKULL-THIGH SUBSEQUENT PET IMAGING CT ATTENUATION [place] [address] [place] [address] Molecular & Functional Imaging [address] [place] [address] Referral ID Status Reason Start Date Expiration Date V isits Requested Visits Authorized [id number] Closed Auto-Generate d Referral 08/22/2022 09/21/2023 1 1 Specialty Diagnoses / Procedures Referred By Contac t Referred To Contact MOLECULAR & FUNCTIONAL IMAGING Diagnoses 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) Procedures NM PET/CT SKULL-THIGH SUBSEQUENT PET IMAGING CT ATTENUATION SKULL BASE MID-THIGH Ruperto Ledezma MD [address] [place] [address] [place] [address] Molecular & Functional Imaging [address] [place] [address] Referral ID Status Reason Start Date Expiration Date V isits Requested Visits Authorized [id number] Closed Auto-Generate d Referral 01/01/2023 01/31/2024 1 1 Specialty Diagnoses / Procedures Referred By Contac t Referred To Contact MOLECULAR & FUNCTIONAL IMAGING Diagnoses Nodular sclerosing Hodgkin's lymphoma, unspecified body region (HCC) Procedures NM PET/CT SKULL-THIGH SUBSEQUENT PET IMAGING CT ATTENUATION SK[place] [address] [place] [address] Molecular & Functional Imaging [address] [place] [address] Referral ID Status Reason Start Date Expiration Date V isits Requested Visits Authorized [id number] Closed Auto-Generate d Referral 07/25/2022 01/21/2023 1 1 Reason Comments 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 Diagnoses / Procedures Referred By Contac t Referred To Contact Hematology / HEMATOLOGY/ONCOLOGY Diagnoses 8 week lab Procedures EST PATIENT GennaBee MD [address] [place] [phone] Ruperto Ledezma MD [address] [place] [address] [place] [address] Referral ID Status Reason Start Date Expiration Date V isits Requested Visits Authorized [id number] Closed Auto-Generate d Referral 11/15/2021 12/15/2022 1 1 Reason Onset Date Comments Refill Request 11/12/2023 Specialty Diagnoses / Procedures Referred By Contac t Referred To Contact MOLECULAR & FUNCTIONAL IMAGING Diagnoses Nodular sclerosing Hodgkin's lymphoma, 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) Procedures NM PET/CT SKULL-THIGH SUBSEQUENT PET IMAGING CT ATTENUATION [place] [address] [facility] [place] [address] Molecular & Functional Imaging [address] [place] [address] Referral ID Status Reason Start Date Expiration Date V isits Requested Visits Authorized [id number] Closed Auto-Generate d Referral 08/16/2021 09/15/2022 1 1 Specialty Diagnoses / Procedures Referred By Contac t Referred To Contact MOLECULAR & FUNCTIONAL IMAGING Diagnoses Hodgkin lymphoma, unspecified Hodgkin lymphoma type, unspecified body region (HCC) 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) Procedures NM PET/CT SKULL-THIGH SUBSEQUENT PET IMAGING CT ATTENUATION [place] [address] [place] [address] Molecular & Functional Imaging [address] [place], [place] [id number] Referral ID Status Reason Start Date Expiration Date V isits Requested Visits Authorized [id number] Closed Auto-Generate d Referral 06/14/2021 07/14/2022 1 1 Specialty Diagnoses / Procedures Referred By Heidi t Referred To Contact MOLECULAR & FUNCTIONAL IMAGING Diagnoses Hodgkin lymphoma, unspecified Hodgkin lymphoma type, unspecified body region (HCC) Procedures NM PET/CT SKULL-THIGH SUBSEQUENT TUMOR IMAGING PET W/CONC CT SKULL-THIGH Sylvia Mancilla HEAT READER.SEWAGE DISPOSAL ENGINEER [address] [place] [address] Molecular & Functional Imaging [address] [place], [place] [id number] Referral ID Status Reason Start Date Expiration Date V isits Requested Visits Authorized [id number] Closed Auto-Generate d Referral 01/25/2021 02/24/2022 1 1 Reason Comments Hospital F/U Was seen at [facility], [facility]. Specialty Diagnoses / Procedures Referred By Heidi george Referred To Contact Pulmonary Disease / PULMONARY MEDICINE Diagnoses pneumonia Procedures OFFICE/OUTPATIENT ESTABLISHED HIGH MDM 40 MIN OFFICE/OUTPATIENT NEW HIGH MDM 60 MINUTES RI [facility] PUL GENERAL 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, HEAT READER.SEWAGE DISPOSAL ENGINEER [address] [place] [address] 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 HEAT READER.SEWAGE DISPOSAL ENGINEER [address] [place] [address] Referral ID Status Reason Start Date Expiration Date Visits Re quested Visits Authorized [id number] Closed 11/21/2023 02/18/2024 1 1 Reason Comments new patient Pt here today she lemos s pneumo three times this year pt has had cancer in the past and has been on immunotherapy for the past eight years and has completed her treatment at the start of the year. Pts last hospital stay was three weeks ago for pneumo. Pt is currently on prednisone Reason Onset Date Comments Med Refill 11/25/2023 Reason Comments Scans Reason Comments Received Outside Medical Records Request Outside Medical Records Reason Comments 3 month Reason Comments Follow-up No surgeries; no hos pital stays. Review blood work. 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) Procedures NM PET/CT SKULL-THIGH SUBSEQUENT PET IMAGING CT ATTENUATION SKULL BASE MID-THIGH Ellyn Lopez, HEAT READER.SEWAGE DISPOSAL ENGINEER [address] [place] [address] [place] [address] Molecular & Functional Imaging [address] [place], [place] [id number] Referral ID Status Reason Start Date Expiration Date V isits Requested Visits Authorized [id number] Closed Auto-Generate d Referral 11/11/2023 12/10/2024 1 1 Reason Onset Date Comments Refill Request 12/15/2023 Reason Comments oxygen orders Reason Comments Pain Specialty Diagnoses / Procedures Referred By Contac t Referred To Contact Pain Management / PAIN MANAGEMENT Diagnoses Chronic pain chronic pain/discuss injections Procedures OFFICE/OUTPATIENT ESTABLISHED SF MDM 10 MIN OFFICE/OUTPATIENT ESTABLISHED LOW MDM 20 MIN OFFICE/OUTPATIENT ESTABLISHED MOD MDM 30 MIN OFFICE/OUTPATIENT ESTABLISHED HIGH MDM 40 MIN PAIN RE Bee Gaines MD [address] [place] [address] Kodi Pantoja MD [address] [place] [address] Referral ID Status Reason Start Date Expiration Date Visits Re quested Visits Authorized [id number] Closed 11/28/2023 02/18/2024 1 1 Reason Comments New Patient Specialty Diagnoses / Procedures Referred By Contac t Referred To Contact Cardiology Diagnoses Pleural effusion, left Pulmonary hypertension (HCC) Procedures CONSULT TO CARDIOLOGY OFFICE/OUTPATIENT NEW HIGH MDM 60 MINUTES Carole Ruano, HEAT READER.SEWAGE DISPOSAL ENGINEER [address] [place] [address] Referral ID Status Reason Start Date Expiration Date V isits Requested Visits Authorized [id number] Closed PCP Requested Referral 06/14/2023 06/13/2024 1 1 Reason Comments follow up Specialty Diagnoses / Procedures Referred By Contac t Referred To Contact Pulmonary and Critical Care Medicine / PULMONARY MEDICINE Diagnoses Follow-up exam ok per Dr. Carver Ms. Weller also needs to be added onto Dr. Carver's schedule at [place] on Saturday06/28/23 at 11 am (it is a hospital day for her but adding her on per Dr. Carver). Dr. Carver would also like her put on the cancellation list for a sooner appt. Procedures OFFICE/OUTPATIENT ESTABLISHED SF MDM 10 MIN OFFICE/OUTPATIENT ESTABLISHED LOW MDM 20 MIN OFFICE/OUTPATIENT ESTABLISHED MOD MDM 30 MIN OFFICE/OUTPATIENT ESTABLISHED HIGH MDM 40 MIN RI EST PULM Bee Galvan MD [address] [facility] [place] [address] [place] [address] [place] [address] Reason Comments Radiology NM Appointment reminder . Reason Onset Date Comments Refill Request 01/13/2024 Specialty Diagnoses / Procedures Referred By Contac t Referred To Contact [facility] Diagnoses Acute hypoxic respiratory failure (HCC) Bronchiectasis without complication (HCC) Restrictive lung disease Procedures LUNG DIFFUSION CAPACITY (DLCO) DIFFUSING CAPACITY 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, LORY.SEWAGE DISPOSAL ENGINEER [address] [place] [address] [address] Referral ID Status Reason Start Date Expiration Date V isits Requested Visits Authorized [id number] Closed Auto-Generate d Referral 12/25/2023 01/23/2025 1 1 Specialty Diagnoses / Procedures Referred By Contac t Referred To Contact [facility] Diagnoses Acute hypoxic respiratory failure (HCC) Bronchiectasis without complication (HCC) Restrictive lung disease Procedures SPIROMETRY WITH DILATOR IF OBSTRUCTED BRNCDILAT RSPSE SPMTRY PRE&POST-BRNCDILAT ADMN 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, HEAT READER.SEWAGE DISPOSAL ENGINEER [address] [place] [address] [address] Referral ID Status Reason Start Date Expiration Date V isits Requested Visits Authorized [id number] Closed Auto-Generate d Referral 12/25/2023 01/23/2025 1 1 Specialty Diagnoses / Procedures Referred By Contac t Referred To Contact [facility] Diagnoses Acute hypoxic respiratory failure (HCC) Procedures OXIMETRY WITH AMBULATION NONINVASIVE EAR/PULSE OXIMETRY MULTIPLE DETER 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, HEAT READER.SEWAGE DISPOSAL ENGINEER [address] [place] [address] [address] Referral ID Status Reason Start Date Expiration Date V isits Requested Visits Authorized [id number] Closed Auto-Generate d Referral 01/04/2024 02/01/2025 1 1 Specialty Diagnoses / Procedures Referred By Contac t Referred To Contact [facility] Diagnoses Acute hypoxic respiratory failure (HCC) Bronchiectasis without complication (HCC) Restrictive lung disease Procedures SIX MINUTE WALK CARDIOPULMONARY EXERCISE STRESS 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, HEAT READER.SEWAGE DISPOSAL ENGINEER [address] [place] [address] [address] Referral ID Status Reason Start Date Expiration Date V isits Requested Visits Authorized [id number] Closed Auto-Generate d Referral 12/25/2023 01/23/2025 1 1 Reason Comments Consult Pt. Of Dr. Carver for pulmonary hypertension consult Specialty Diagnoses / Procedures Referred By Contac t Referred To Contact Diagnoses Pulmonary hypertension (HCC) Procedures CONSULT TO PULMONARY HYPERTENSION CLINIC OFFICE/OUTPATIENT [facility] 60 [place] [address] [place] [address] Referral ID Status Reason Start Date Expiration Date V isits Requested Visits Authorized [id number] Closed PCP Requested Referral 01/06/2024 01/05/2025 1 1 Reason Comments Procedure Scheduling RHC Reason Onset Date Comments Record Request 11/05/2023 Reason Comments Hospital Follow-up Reason Onset Date Comments Med Refill 10/09/2023 Reason Onset Date Comments Med Refill 11/12/2023 Reason Onset Date Comments Med Refill 02/10/2024 Reason Onset Date Comments Refill Request 02/10/2024 Reason Comments PSG Check In Reason Onset Date Comments Refill Request 03/04/2024 Reason Comments Hospital Follow-up Follow-up Reason Onset Date Comments Med Refill 03/13/2024 Reason Onset Date Comments Refill Request 04/02/2024 Reason Comments Orders Reason Comments Allergy Testing Pt here for environm ental allergy testing and has been off meds for testing. Reason Onset Date Comments Med Refill 04/08/2024 Reason Comments Appointment Confirmation Reason Onset Date Comments CXR results 05/04/2024 Reason Comments Patient Update Reason Comments Radio Gen RMP Reason Onset Date Comments Med Refill 05/11/2024 Reason Comments Effusion Reason Onset Date Comments Cpap Order 05/20/2024 Reason Onset Date Comments Med Refill 05/27/2024 Reason Comments Follow-up Reason Onset Date Comments Refill Request 06/25/2024 Care Teams (unrecognized sec tion and content) Press Writer Relationship Specialty Start Date End Date Bee Vail MD PCP - General Internal Medicine 05/07/16 [place] [address] [place] [address] Consulting Hematology/Oncology 01/28/12 Marilyn Hughes RN [id number] [place] [address] Specialty Airport Manager Hematology/Oncology 11/09/19 [place] [address] [place] [address] Hematology/Oncology 03/30/21 Press Writer Relationship Specialty Start Date End Date Bee Vail MD PCP - General Internal Medicine 05/07/16 [place] [address] [place] [address] Consulting Hematology/Oncology 01/28/12 [place] [address] [place] [address] Specialty Airport Manager Hematology/Oncology 11/09/19 [place] [address] [place] [address] Hematology/Oncology 03/30/21 Press Writer Relationship Specialty Start Date End Date Bee Vail MD PCP - General Internal Medicine 05/07/16 [place] [address] [place] [address] Consulting Hematology/Oncology 01/28/12 Marilyn Hughes, RN [id number] [place] [address] Specialty Airport Manager Hematology/Oncology 11/09/19 [place] [address] [place] [address] Hematology/Oncology 03/30/21 Press Writer Relationship Specialty Start Date End Date Bee Vail MD PCP - General Internal Medicine 05/07/16 [place] [address] [place] [address] Consulting Hematology/Oncology 01/28/12 Marilyn Hughes, RN [address] [place] [address] Specialty Airport Manager Hematology/Oncology 11/09/19 [place] [address] [place] [address] Hematology/Oncology 03/30/21 Press Writer Relationship Specialty Start Date End Date Bee Vail MD PCP - General Internal Medicine 05/07/16 Cyn Hernandez MD [id number] [place] [address] Consulting Hematology/Oncology 01/28/12 Marilyn Hughes RN [id number] [place] [address] Specialty Airport Manager Hematology/Oncology 11/09/19 Cyn Hernandez MD [id number] [place] [address] Hematology/Oncology 03/30/21 Press Writer Relationship Specialty Start Date End Date Bee Vail MD PCP - General Internal Medicine 05/07/16 Cyn Hernandez MD [id number] [place] [address] Consulting Hematology/Oncology 01/28/12 Marilyn Hughes RN [id number] [place] [address] Specialty Airport Manager Hematology/Oncology 11/09/19 Cyn Hernandez MD [id number] [place] [address] Hematology/Oncology 03/30/21 Press Writer Relationship Specialty Start Date End Date Bee Vail MD PCP - General Internal Medicine 05/07/16 Cyn Hernandez MD [id number] [place] [address] Consulting Hematology/Oncology 01/28/12 Marilyn Hughes RN [id number] [place] [address] Specialty Airport Manager Hematology/Oncology 11/09/19 [place] [address] [place] [address] Hematology/Oncology 03/30/21 Kristina Pete, RN Specialty Airport Manager HOSPICE & PALLIATIVE MEDICINE 05/22/21 Press Writer Relationship Specialty Start Date End Date Bee Vail MD PCP - General Internal Medicine 05/07/16 [place] [address] [place] [address] Consulting Hematology/Oncology 01/28/12 Marilyn Hughes, RN [id number] [place] [address] Specialty Airport Manager Hematology/Oncology 11/09/19 [place] [address] [place] [address] Hematology/Oncology 03/30/21 Kristina Pete, RN Specialty Airport Manager HOSPICE & PALLIATIVE MEDICINE 05/22/21 Press Writer Relationship Specialty Start Date End Date Bee Vail MD PCP - General Internal Medicine 05/07/16 [place] [address] [place] [address] Consulting Hematology/Oncology 01/28/12 Marilyn Hughes, MAE [id number] [place] [address] Specialty Airport Manager Hematology/Oncology 11/09/19 [place] [address] [place] [address] Hematology/Oncology 03/30/21 Kristina Ptee, RN Specialty Airport Manager HOSPICE & PALLIATIVE MEDICINE 05/22/21 Press Writer Relationship Specialty Start Date End Date Bee Vail MD PCP - General Internal Medicine 05/07/16 [place] [address] [place] [address] Consulting Hematology/Oncology 01/28/12 Marilyn Hughes RN [id number] [place] [address] Specialty Airport Manager Hematology/Oncology 11/09/19 [place] [address] [place] [address] Hematology/Oncology 03/30/21 Kristina Pete RN Specialty Airport Manager HOSPICE & PALLIATIVE MEDICINE 05/22/21 Press Writer Relationship Specialty Start Date End Date Bee Vail MD PCP - General Internal Medicine 05/07/16 [place] [address] [place] [address] Consulting Hematology/Oncology 01/28/12 Marilyn Hughes, MAE [id number] [place] [address] Specialty Airport Manager Hematology/Oncology 11/09/19 [place] [address] [place] [address] Hematology/Oncology 03/30/21 Kristina Pete, MAE Specialty Airport Manager HOSPICE & PALLIATIVE MEDICINE 05/22/21 Irene Han, HEAT READER.SEWAGE DISPOSAL ENGINEER [address] [place], [place] [id number] Palliative Medicine Provider HOSPICE & PALLIATIVE MEDICINE 06/28/21 Press Writer Relationship Specialty Start Date End Date Bee Vail MD PCP - General Internal Medicine 05/07/16 [place] [address] [place] [address] Consulting Hematology/Oncology 01/28/12 [place] [address] [place] [address] Specialty Airport Manager Hematology/Oncology 11/09/19 [place] [address] [place] [address] Hematology/Oncology 03/30/21 Kristina Pete, MAE Specialty Airport Manager HOSPICE & PALLIATIVE MEDICINE 05/22/21 Irene Han, HEAT READER.SEWAGE DISPOSAL ENGINEER [address] [place] [address] Palliative Medicine Provider HOSPICE & PALLIATIVE MEDICINE 06/28/21 Press Writer Relationship Specialty Start Date End Date Bee Vail MD PCP - General Internal Medicine 05/07/16 [place] [address] [place] [address] Consulting Hematology/Oncology 01/28/12 Marilyn Hughes, MAE [address] [place] [address] Specialty Airport Manager Hematology/Oncology 11/09/19 [place] [address] [place] [address] Hematology/Oncology 03/30/21 Kristina Pete, RN Specialty Airport Manager HOSPICE & PALLIATIVE MEDICINE 05/22/21 Irene Han, HEAT READER.SEWAGE DISPOSAL ENGINEER [address] [place] [address] Palliative Medicine Provider HOSPICE & PALLIATIVE MEDICINE 06/28/21 Press Writer Relationship Specialty Start Date End Date Bee Vail MD PCP - General Internal Medicine 05/07/16 Cyn Hernandez MD [id number] [place] [address] Consulting Hematology/Oncology 01/28/12 Marilyn Hughes, RN [id number] [place] [address] Specialty Airport Manager Hematology/Oncology 11/09/19 Cyn Hernandez MD [id number] [place] [address] Hematology/Oncology 03/30/21 Kristina Pete, MAE Specialty Airport Manager HOSPICE & PALLIATIVE MEDICINE 05/22/21 Irene Han, HEAT READER.SEWAGE DISPOSAL ENGINEER [address] [place] [address] Palliative Medicine Provider HOSPICE & PALLIATIVE MEDICINE 06/28/21 Press Writer Relationship Specialty Start Date End Date Bee Vail MD PCP - General Internal Medicine 05/07/16 [place] [address] [place] [address] Consulting Hematology/Oncology 01/28/12 Marilyn Hughes, RN [id number] [place] [address] Specialty Airport Manager Hematology/Oncology 11/09/19 [place] [address] [place] [address] Hematology/Oncology 03/30/21 Kristina Pete, RN Specialty Airport Manager HOSPICE & PALLIATIVE MEDICINE 05/22/21 Irene Han, HEAT READER.SEWAGE DISPOSAL ENGINEER [address] [place] [address] Palliative Medicine Provider HOSPICE & PALLIATIVE MEDICINE 06/28/21 Press Writer Relationship Specialty Start Date End Date Bee Vail MD PCP - General Internal Medicine 05/07/16 [place] [address] [place] [address] Consulting Hematology/Oncology 01/28/12 [place]E [address] [place] [address] Specialty Airport Manager Hematology/Oncology 11/09/19 [place] [address] [place] [address] Hematology/Oncology 03/30/21 Kristina Pete, MAE Specialty Airport Manager HOSPICE & PALLIATIVE MEDICINE 05/22/21 Irene Han, HEAT READER.SEWAGE DISPOSAL ENGINEER [address] [place] [address] Palliative Medicine Provider HOSPICE & PALLIATIVE MEDICINE 06/28/21 Press Writer Relationship Specialty Start Date End Date Bee Vail MD PCP - General Internal Medicine 05/07/16 [place] [address] [place] [address] Consulting Hematology/Oncology 01/28/12 Marilyn Hughes, MAE [address] [place] [address] Specialty Airport Manager Hematology/Oncology 11/09/19 [place] [address] [place] [address] Hematology/Oncology 03/30/21 Kristina Pete, RN Specialty Airport Manager HOSPICE & PALLIATIVE MEDICINE 05/22/21 Irene Han, HEAT READER.SEWAGE DISPOSAL ENGINEER [address] [place] [address] Palliative Medicine Provider HOSPICE & PALLIATIVE MEDICINE 06/28/21 Press Writer Relationship Specialty Start Date End Date Bee Vail MD PCP - General Internal Medicine 05/07/16 [place] [address] [place] [address] Consulting Hematology/Oncology 01/28/12 [place] MAE [address] [place] [address] Specialty Airport Manager Hematology/Oncology 11/09/19 [place] [address] [place] [address] Hematology/Oncology 03/30/21 Kristina Pete, RN Specialty Airport Manager HOSPICE & PALLIATIVE MEDICINE 05/22/21 Irene Han, HEAT READER.SEWAGE DISPOSAL ENGINEER [address] [place] [address] Palliative Medicine Provider HOSPICE & PALLIATIVE MEDICINE 06/28/21 Press Writer Relationship Specialty Start Date End Date Bee Vail MD PCP - General Internal Medicine 05/07/16 [place] [address] [place] [address] Consulting Hematology/Oncology 01/28/12 [place]E [address] [place] [address] Specialty Airport Manager Hematology/Oncology 11/09/19 [place] [address] [place] [address] Hematology/Oncology 03/30/21 Kristina Pete, RN Specialty Airport Manager HOSPICE & PALLIATIVE MEDICINE 05/22/21 Irene Han, HEAT READER.SEWAGE DISPOSAL ENGINEER [address] [place] [address] Palliative Medicine Provider HOSPICE & PALLIATIVE MEDICINE 06/28/21 Press Writer Relationship Specialty Start Date End Date Bee Vail MD PCP - General Internal Medicine 05/07/16 [place] [address] [place] [address] Consulting Hematology/Oncology 01/28/12 [place] [address] [place] [address] Specialty Airport Manager Hematology/Oncology 11/09/19 [place] [address] [place] [address] Hematology/Oncology 03/30/21 Kristina Pete, MAE Specialty Airport Manager HOSPICE & PALLIATIVE MEDICINE 05/22/21 Irene Han, HEAT READER.SEWAGE DISPOSAL ENGINEER [address] [place] [address] Palliative Medicine Provider HOSPICE & PALLIATIVE MEDICINE 06/28/21 Press Writer Relationship Specialty Start Date End Date Bee Vail MD PCP - General Internal Medicine 05/07/16 [place] [address] [place] [address] Consulting Hematology/Oncology 01/28/12 Marilyn Hughes RN [id number] [place] [address] Specialty Airport Manager Hematology/Oncology 11/09/19 [place] [address] [place] [address] Hematology/Oncology 03/30/21 Kristina Pete, MAE Specialty Airport Manager HOSPICE & PALLIATIVE MEDICINE 05/22/21 Irene Han, HEAT READER.SEWAGE DISPOSAL ENGINEER [address] [place] [address] Palliative Medicine Provider HOSPICE & PALLIATIVE MEDICINE 06/28/21 Press Writer Relationship Specialty Start Date End Date Bee Vail MD PCP - General Internal Medicine 05/07/16 [place] [address] [place] [address] Consulting Hematology/Oncology 01/28/12 Marilyn Hughes RN [id number] [place] [address] Specialty Airport Manager Hematology/Oncology 11/09/19 [place] [address] [place] [address] Hematology/Oncology 03/30/21 Kristina Pete, MAE Specialty Airport Manager HOSPICE & PALLIATIVE MEDICINE 05/22/21 Irene Han, HEAT READER.SEWAGE DISPOSAL ENGINEER [address] [facility] [place] [address] Palliative Medicine Provider HOSPICE & PALLIATIVE MEDICINE 06/28/21 Press Writer Relationship Specialty Start Date End Date Bee Vail MD PCP - General Internal Medicine 05/07/16 [place] [address] [place] [address] Consulting Hematology/Oncology 01/28/12 [place] [address] [place] [address] Specialty Airport Manager Hematology/Oncology 11/09/19 [place] [address] [place] [address] Hematology/Oncology 03/30/21 Kristina Pete, MAE Specialty Airport Manager HOSPICE & PALLIATIVE MEDICINE 05/22/21 Irene Han, HEAT READER.SEWAGE DISPOSAL ENGINEER [address] [place] [address] Palliative Medicine Provider HOSPICE & PALLIATIVE MEDICINE 06/28/21 Press Writer Relationship Specialty Start Date End Date Bee Vail MD PCP - General Internal Medicine 05/07/16 [place] [address] [place] [address] Consulting Hematology/Oncology 01/28/12 [place], MAE [address] [place] [address] Specialty Airport Manager Hematology/Oncology 11/09/19 [place] [address] [place] [address] Hematology/Oncology 03/30/21 Kristina Pete, MAE Specialty Airport Manager HOSPICE & PALLIATIVE MEDICINE 05/22/21 Irene Han, HEAT READER.SEWAGE DISPOSAL ENGINEER [address] [place] [address] Palliative Medicine Provider HOSPICE & PALLIATIVE MEDICINE 06/28/21 Press Writer Relationship Specialty Start Date End Date Bee Vail MD PCP - General Internal Medicine 05/07/16 [place] [address] [place] [address] Consulting Hematology/Oncology 01/28/12 Marilyn Hughes, RN [address] [place] [address] Specialty Airport Manager Hematology/Oncology 11/09/19 Cyn Hernandez MD [id number] [place] [address] Hematology/Oncology 03/30/21 Kristina Pete, MAE Specialty Airport Manager HOSPICE & PALLIATIVE MEDICINE 05/22/21 Irene Han, HEAT READER.SEWAGE DISPOSAL ENGINEER [address] [place] [address] Palliative Medicine Provider HOSPICE & PALLIATIVE MEDICINE 06/28/21 Press Writer Relationship Specialty Start Date End Date Bee Vail MD PCP - General Internal Medicine 05/07/16 [place] [address] [place] [address] Consulting Hematology/Oncology 01/28/12 Marilyn Hughes, RN [address] [place] [address] Specialty Airport Manager Hematology/Oncology 11/09/19 [place] [address] [place] [address] Hematology/Oncology 03/30/21 Kristina Pete, RN Specialty Airport Manager HOSPICE & PALLIATIVE MEDICINE 05/22/21 Irene Han, HEAT READER.SEWAGE DISPOSAL ENGINEER [address] [place] [address] Palliative Medicine Provider HOSPICE & PALLIATIVE MEDICINE 06/28/21 Press Writer Relationship Specialty Start Date End Date Bee Vail MD PCP - General Internal Medicine 05/07/16 [place] [address] [place] [address] Consulting Hematology/Oncology 01/28/12 [place] MAE [address] [place] [address] Specialty Airport Manager Hematology/Oncology 11/09/19 [place] [address] [place] [address] Hematology/Oncology 03/30/21 Kristina Pete, MAE Specialty Airport Manager HOSPICE & PALLIATIVE MEDICINE 05/22/21 Irene Han, HEAT READER.SEWAGE DISPOSAL ENGINEER [address] [place] [address] Palliative Medicine Provider HOSPICE & PALLIATIVE MEDICINE 06/28/21 Press Writer Relationship Specialty Start Date End Date Bee Vail MD PCP - General Internal Medicine 05/07/16 [place] [address] [place] [address] Consulting Hematology/Oncology 01/28/12 [place]E [address] [place] [address] Specialty Airport Manager Hematology/Oncology 11/09/19 [place] [address] [place] [address] Hematology/Oncology 03/30/21 Kristina Pete, RN Specialty Airport Manager HOSPICE & PALLIATIVE MEDICINE 05/22/21 Irene Han, HEAT READER.SEWAGE DISPOSAL ENGINEER [address] [place] [address] Palliative Medicine Provider HOSPICE & PALLIATIVE MEDICINE 06/28/21 Kylie Mosher, RN Specialty Airport Manager HOSPICE & PALLIATIVE MEDICINE 09/27/21 Press Writer Relationship Specialty Start Date End Date Bee Vail MD PCP - General Internal Medicine 05/07/16 [place] [address] [place] [address] Consulting Hematology/Oncology 01/28/12 Marilyn Hughes, MAE [address] [place] [address] Specialty Airport Manager Hematology/Oncology 11/09/19 [place] [address] [place] [address] Hematology/Oncology 03/30/21 Kristina Pete, RN Specialty Airport Manager HOSPICE & PALLIATIVE MEDICINE 05/22/21 Irene Han, HEAT READER.SEWAGE DISPOSAL ENGINEER [address] [place] [address] Palliative Medicine Provider HOSPICE & PALLIATIVE MEDICINE 06/28/21 Kylie Mosher, RN Specialty Airport Manager HOSPICE & PALLIATIVE MEDICINE 09/27/21 Press Writer Relationship Specialty Start Date End Date Bee Vail MD PCP - General Internal Medicine 05/07/16 [place] [address] [place] [address] Consulting Hematology/Oncology 01/28/12 Marilyn Hughes, MAE [address] [place] [address] Specialty Airport Manager Hematology/Oncology 11/09/19 [place] [address] [place] [address] Hematology/Oncology 03/30/21 Kristina Pete, RN Specialty Airport Manager HOSPICE & PALLIATIVE MEDICINE 05/22/21 Irene Han, HEAT READER.SEWAGE DISPOSAL ENGINEER [address] [place], [place] 00[address]8831 Palliative Medicine Provider HOSPICE & PALLIATIVE MEDICINE 06/28/21 Kylie Mosher RN Specialty Airport Manager HOSPICE & PALLIATIVE MEDICINE 09/27/21 Press Writer Relationship Specialty Start Date End Date Bee Vail MD PCP - General Internal Medicine 05/07/16 [place] [address] [place] [address] Consulting Hematology/Oncology 01/28/12 [place] [address] [place] [address] Specialty Airport Manager Hematology/Oncology 11/09/19 [place] [address] [place] [address] Hematology/Oncology 03/30/21 Kristina Pete, MAE Specialty Airport Manager HOSPICE & PALLIATIVE MEDICINE 05/22/21 Irene Han, HEAT READER.SEWAGE DISPOSAL ENGINEER [address] [place] [address] Palliative Medicine Provider HOSPICE & PALLIATIVE MEDICINE 06/28/21 Kylie Mosher, RN Specialty Airport Manager HOSPICE & PALLIATIVE MEDICINE 09/27/21 Press Writer Relationship Specialty Start Date End Date Bee Vail MD PCP - General Internal Medicine 05/07/16 [place] [address] [place] [address] Consulting Hematology/Oncology 01/28/12 Marilyn Hughes, RN [address] [place] [address] Specialty Airport Manager Hematology/Oncology 11/09/19 [place] [address] [place] [address] Hematology/Oncology 03/30/21 Kristina Pete, MAE Specialty Airport Manager HOSPICE & PALLIATIVE MEDICINE 05/22/21 Irene Han, HEAT READER.SEWAGE DISPOSAL ENGINEER [address] [place] [address] Palliative Medicine Provider HOSPICE & PALLIATIVE MEDICINE 06/28/21 Kylie Mosher, RN Specialty Airport Manager HOSPICE & PALLIATIVE MEDICINE 09/27/21 Press Writer Relationship Specialty Start Date End Date Bee Vail MD PCP - General Internal Medicine 05/07/16 [place] [address] [place] [address] Consulting Hematology/Oncology 01/28/12 Marilyn Hughes, RN [id number] [place] [address] Specialty Airport Manager Hematology/Oncology 11/09/19 [place] [address] [place] [address] Hematology/Oncology 03/30/21 Kristina Pete, RN Specialty Airport Manager HOSPICE & PALLIATIVE MEDICINE 05/22/21 Irene Han, HEAT READER.SEWAGE DISPOSAL ENGINEER [address] [place] [address] Palliative Medicine Provider HOSPICE & PALLIATIVE MEDICINE 06/28/21 Kylie Mosher, RN Specialty Airport Manager HOSPICE & PALLIATIVE MEDICINE 09/27/21 Press Writer Relationship Specialty Start Date End Date Bee Vail MD PCP - General Internal Medicine 05/07/16 [place] [address] [place] [address] Consulting Hematology/Oncology 01/28/12 [place]E [address] [place] [address] Specialty Airport Manager Hematology/Oncology 11/09/19 [place] [address] [place] [address] Hematology/Oncology 03/30/21 Kristina Pete, MAE Specialty Airport Manager HOSPICE & PALLIATIVE MEDICINE 05/22/21 Irene Han, HEAT READER.SEWAGE DISPOSAL ENGINEER [address] [place] [address] Palliative Medicine Provider HOSPICE & PALLIATIVE MEDICINE 06/28/21 Kylie Mosher, RN Specialty Airport Manager HOSPICE & PALLIATIVE MEDICINE 09/27/21 Press Writer Relationship Specialty Start Date End Date Bee Vail MD PCP - General Internal Medicine 05/07/16 [place] [address] [place] [address] Consulting Hematology/Oncology 01/28/12 [place] MAE [address] [place] [address] Specialty Airport Manager Hematology/Oncology 11/09/19 [place] [address] [place] [address] Hematology/Oncology 03/30/21 Kristina Pete, RN Specialty Airport Manager HOSPICE & PALLIATIVE MEDICINE 05/22/21 Irene Han, HEAT READER.SEWAGE DISPOSAL ENGINEER [address] [place] [address] Palliative Medicine Provider HOSPICE & PALLIATIVE MEDICINE 06/28/21 Kylie Mosher RN Specialty Airport Manager HOSPICE & PALLIATIVE MEDICINE 09/27/21 Press Writer Relationship Specialty Start Date End Date Bee Vail MD PCP - General Internal Medicine 05/07/16 [place] [address] [place] [address] Consulting Hematology/Oncology 01/28/12 [place] [address] [place] [address] Specialty Airport Manager Hematology/Oncology 11/09/19 [place] [address] [place] [address] Hematology/Oncology 03/30/21 Kristina Pete, MAE Specialty Airport Manager HOSPICE & PALLIATIVE MEDICINE 05/22/21 Irene Han, HEAT READER.SEWAGE DISPOSAL ENGINEER [address] [place] [address] Palliative Medicine Provider HOSPICE & PALLIATIVE MEDICINE 06/28/21 Kylie Mosher RN Specialty Airport Manager HOSPICE & PALLIATIVE MEDICINE 09/27/21 Press Writer Relationship Specialty Start Date End Date Bee Vail MD PCP - General Internal Medicine 05/07/16 [place] [address] [place] [address] Consulting Hematology/Oncology 01/28/12 Marilyn Hughes, RN [id number] [place] [address] Specialty Airport Manager Hematology/Oncology 11/09/19 [place] [address] [place] [address] Hematology/Oncology 03/30/21 Kristina Pete, MAE Specialty Airport Manager HOSPICE & PALLIATIVE MEDICINE 05/22/21 Irene Han, HEAT READER.SEWAGE DISPOSAL ENGINEER [address] [place] [address] Palliative Medicine Provider HOSPICE & PALLIATIVE MEDICINE 06/28/21 Kylie Mosher, MAE Specialty Airport Manager HOSPICE & PALLIATIVE MEDICINE 09/27/21 Press Writer Relationship Specialty Start Date End Date Bee Vail MD PCP - General Internal Medicine 05/07/16 [place] [address] [place] [address] Consulting Hematology/Oncology 01/28/12 Marilyn Hughes, MAE [id number] [place] [address] Specialty Airport Manager Hematology/Oncology 11/09/19 [place] [address] [place] [address] Hematology/Oncology 03/30/21 Kristina Pete, MAE Specialty Airport Manager HOSPICE & PALLIATIVE MEDICINE 05/22/21 Irene Han, HEAT READER.SEWAGE DISPOSAL ENGINEER [address] [place] [address] Palliative Medicine Provider HOSPICE & PALLIATIVE MEDICINE 06/28/21 Kylie Mosher, RN Specialty Airport Manager HOSPICE & PALLIATIVE MEDICINE 09/27/21 Press Writer Relationship Specialty Start Date End Date Bee Vail MD PCP - General Internal Medicine 05/07/16 [place] [address] [place] [address] Consulting Hematology/Oncology 01/28/12 [place] MAE [address] [place] [address] Specialty Airport Manager Hematology/Oncology 11/09/19 [place] [address] [place] [address] Hematology/Oncology 03/30/21 Kristina Pete, MAE Specialty Airport Manager HOSPICE & PALLIATIVE MEDICINE 05/22/21 Irene Han, HEAT READER.SEWAGE DISPOSAL ENGINEER [address] [place] [address] Palliative Medicine Provider HOSPICE & PALLIATIVE MEDICINE 06/28/21 Kylie Mosher RN Specialty Airport Manager HOSPICE & PALLIATIVE MEDICINE 09/27/21 Press Writer Relationship Specialty Start Date End Date Bee Vial MD PCP - General Internal Medicine 05/07/16 [place] [address] [place] [address] Consulting Hematology/Oncology 01/28/12 [place] MAE [address] [place] [address] Specialty Airport Manager Hematology/Oncology 11/09/19 [place] [address] [place] [address] Hematology/Oncology 03/30/21 Kristina Pete, RN Specialty Airport Manager HOSPICE & PALLIATIVE MEDICINE 05/22/21 Irene Han, HEAT READER.SEWAGE DISPOSAL ENGINEER [address] [place] [address] Palliative Medicine Provider HOSPICE & PALLIATIVE MEDICINE 06/28/21 Kylie Mosher, RN Specialty Airport Manager HOSPICE & PALLIATIVE MEDICINE 09/27/21 Press Writer Relationship Specialty Start Date End Date Bee Vail MD PCP - General Internal Medicine 05/07/16 [place] [address] [place] [address] Consulting Hematology/Oncology 01/28/12 [place] MAE [address] [place] [address] Specialty Airport Manager Hematology/Oncology 11/09/19 [place] [address] [place] [address] Hematology/Oncology 03/30/21 Kristina Pete, RN Specialty Airport Manager HOSPICE & PALLIATIVE MEDICINE 05/22/21 rIene Han, HEAT READER.SEWAGE DISPOSAL ENGINEER [address] [place] [address] Palliative Medicine Provider HOSPICE & PALLIATIVE MEDICINE 06/28/21 Kylie Mosher RN Specialty Airport Manager HOSPICE & PALLIATIVE MEDICINE 09/27/21 Press Writer Relationship Specialty Start Date End Date Bee Vail MD PCP - General Internal Medicine 05/07/16 [place] [address] [place] [address] Consulting Hematology/Oncology 01/28/12 Marilyn Hughes RN [id number] [place] [address] Specialty Airport Manager Hematology/Oncology 11/09/19 [place] [address] [place] [address] Hematology/Oncology 03/30/21 Kristina Pete, MAE Specialty Airport Manager HOSPICE & PALLIATIVE MEDICINE 05/22/21 Irene Han, HEAT READER.SEWAGE DISPOSAL ENGINEER [address] [place] [address] Palliative Medicine Provider HOSPICE & PALLIATIVE MEDICINE 06/28/21 Kylie Mosher RN Specialty Airport Manager HOSPICE & PALLIATIVE MEDICINE 09/27/21 Press Writer Relationship Specialty Start Date End Date Bee Vail MD PCP - General Internal Medicine 05/07/16 [place] [address] [place] [address] Consulting Hematology/Oncology 01/28/12 Marilyn Hughes RN [id number] [place] [address] Specialty Airport Manager Hematology/Oncology 11/09/19 [place] [address] [place] [address] Hematology/Oncology 03/30/21 Kristina Pete, MAE Specialty Airport Manager HOSPICE & PALLIATIVE MEDICINE 05/22/21 Irene Han, HEAT READER.SEWAGE DISPOSAL ENGINEER [address] [facility] [place] [address] Palliative Medicine Provider HOSPICE & PALLIATIVE MEDICINE 06/28/21 Kylie Mosher, RN Specialty Airport Manager HOSPICE & PALLIATIVE MEDICINE 09/27/21 Press Writer Relationship Specialty Start Date [place] [address] PCP - General Internal Medicine 05/07/16 [place] [address] Consulting Hematology/Oncology 01/28/12 Marilyn Hughes, MAE [id number] [place] [address] Specialty Airport Manager Hematology/Oncology 11/09/19 [place] [address] Hematology/Oncology 03/30/21 Kristina Pete, MAE Specialty Airport Manager HOSPICE & PALLIATIVE MEDICINE 05/22/21 Irene Han, HEAT READER.SEWAGE DISPOSAL ENGINEER [address] [place] [address] Palliative Medicine Provider HOSPICE & PALLIATIVE MEDICINE 06/28/21 Kylie Mosher, RN Specialty Airport Manager HOSPICE & PALLIATIVE MEDICINE 09/27/21 Press Writer Relationship Specialty Start Date [place] [address] PCP - General Internal Medicine 05/07/16 [place] [address] Consulting Hematology/Oncology 01/28/12 Marilyn Hughes, MAE [id number] [place] [address] Specialty Airport Manager Hematology/Oncology 11/09/19 [place] [address] [place] [address] Hematology/Oncology 03/30/21 Kristina Pete, RN Specialty Airport Manager HOSPICE & PALLIATIVE MEDICINE 05/22/21 Irene Han, HEAT READER.SEWAGE DISPOSAL ENGINEER [address] [place] [address] Palliative Medicine Provider HOSPICE & PALLIATIVE MEDICINE 06/28/21 Kylie Mosher, RN Specialty Airport Manager HOSPICE & PALLIATIVE MEDICINE 09/27/21 Press Writer Relationship Specialty [place] [address] [place] [address] PCP - General Internal Medicine 05/07/16 [place] [address] [place] [address] Consulting Hematology/Oncology 01/28/12 Marilyn Hughes, MAE [address] [place] [address] Specialty Airport Manager Hematology/Oncology 11/09/19 [place] [address] [place] [address] Hematology/Oncology 03/30/21 Kristina Pete, RN Specialty Airport Manager HOSPICE & PALLIATIVE MEDICINE 05/22/21 Irene Han, HEAT READER.SEWAGE DISPOSAL ENGINEER [address] [place] [address] Palliative Medicine Provider HOSPICE & PALLIATIVE MEDICINE 06/28/21 Kylie Mosher, RN Specialty Airport Manager HOSPICE & PALLIATIVE MEDICINE 09/27/21 Press Writer Relationship Specialty [place] [address] [place] [address] PCP - General Internal Medicine 05/07/16 [place] [address] [place] [address] Consulting Hematology/Oncology 01/28/12 Marilyn Hughes, MAE [id number] [place] [address] Specialty Airport Manager Hematology/Oncology 11/09/19 [place] [address] [place] [address] Hematology/Oncology 03/30/21 Kristina Pete, MAE Specialty Airport Manager HOSPICE & PALLIATIVE MEDICINE 05/22/21 Irene Han, HEAT READER.SEWAGE DISPOSAL ENGINEER [address] [place] [address] Palliative Medicine Provider HOSPICE & PALLIATIVE MEDICINE 06/28/21 Kylie Mosher RN Specialty Airport Manager HOSPICE & PALLIATIVE MEDICINE 09/27/21 Press Writer Relationship Specialty [place] [address] [place] [address] PCP - General Internal Medicine 05/07/16 [place] [address] [place] [address] Consulting Hematology/Oncology 01/28/12 [place]E [address] [place] [address] Specialty Airport Manager Hematology/Oncology 11/09/19 [place] [address] [place] [address] Hematology/Oncology 03/30/21 Kristina Pete, RN Specialty Airport Manager HOSPICE & PALLIATIVE MEDICINE 05/22/21 Irene Han, HEAT READER.SEWAGE DISPOSAL ENGINEER [address] [place] [address] Palliative Medicine Provider HOSPICE & PALLIATIVE MEDICINE 06/28/21 Kylie Mosher, RN Specialty Airport Manager HOSPICE & PALLIATIVE MEDICINE 09/27/21 Press Writer Relationship Specialty [place] [address] [place] [address] PCP - General Internal Medicine 05/07/16 [place] [address] [place] [address] Consulting Hematology/Oncology 01/28/12 [place]E [address] [place] [address] Specialty Airport Manager Hematology/Oncology 11/09/19 [place] [address] [place] [address] Hematology/Oncology 03/30/21 Kristina Pete, MAE Specialty Airport Manager HOSPICE & PALLIATIVE MEDICINE 05/22/21 Irene Han, HEAT READER.SEWAGE DISPOSAL ENGINEER [address] [place] [address] Palliative Medicine Provider HOSPICE & PALLIATIVE MEDICINE 06/28/21 Kylie Mosher, RN Specialty Airport Manager HOSPICE & PALLIATIVE MEDICINE 09/27/21 Press Writer Relationship Specialty [place] [address] [place] [address] PCP - General Internal Medicine 05/07/16 [place] [address] [place] [address] Consulting Hematology/Oncology 01/28/12 Marilyn Hughes, MAE [address] [place] [address] Specialty Airport Manager Hematology/Oncology 11/09/19 [place] [address] [place] [address] Hematology/Oncology 03/30/21 Kristina Pete, RN Specialty Airport Manager HOSPICE & PALLIATIVE MEDICINE 05/22/21 Irene Han, HEAT READER.SEWAGE DISPOSAL ENGINEER [address] [place] [address] Palliative Medicine Provider HOSPICE & PALLIATIVE MEDICINE 06/28/21 Kylie Mosher, MAE Specialty Airport Manager HOSPICE & PALLIATIVE MEDICINE 09/27/21 Press Writer Relationship Specialty [place] [address] [place] [address] PCP - General Internal Medicine 05/07/16 [place] [address] [place] [address] Consulting Hematology/Oncology 01/28/12 [place] MAE [address] [place] [address] Specialty Airport Manager Hematology/Oncology 11/09/19 [place] [address] [place] [address] Hematology/Oncology 03/30/21 Kristina Pete, MAE Specialty Airport Manager HOSPICE & PALLIATIVE MEDICINE 05/22/21 Irene Han, HEAT READER.SEWAGE DISPOSAL ENGINEER [address] [place] [address] Palliative Medicine Provider HOSPICE & PALLIATIVE MEDICINE 06/28/21 Kylie Mosher RN Specialty Airport Manager HOSPICE & PALLIATIVE MEDICINE 09/27/21 Press Writer Relationship Specialty [place] [address] [place] [address] PCP - General Internal Medicine 05/07/16 [place] [address] [place] [address] Consulting Hematology/Oncology 01/28/12 Marilyn Hughes, RN [id number] [place] [address] Specialty Airport Manager Hematology/Oncology 11/09/19 [place] [address] [place] [address] Hematology/Oncology 03/30/21 Kristina Pete, MAE Specialty Airport Manager HOSPICE & PALLIATIVE MEDICINE 05/22/21 Irene Han, HEAT READER.SEWAGE DISPOSAL ENGINEER [address] [place] [address] Palliative Medicine Provider HOSPICE & PALLIATIVE MEDICINE 06/28/21 Kylie Mosher, MAE Specialty Airport Manager HOSPICE & PALLIATIVE MEDICINE 09/27/21 Press Writer Relationship Specialty [place] [address] [place] [address] PCP - General Internal Medicine 05/07/16 [place] [address] [place] [address] Consulting Hematology/Oncology 01/28/12 Marilyn Hughes, MAE [id number] [place] [address] Specialty Airport Manager Hematology/Oncology 11/09/19 [place] [address] [place] [address] Hematology/Oncology 03/30/21 Kristina Pete, MAE Specialty Airport Manager HOSPICE & PALLIATIVE MEDICINE 05/22/21 Ireen Han, HEAT READER.SEWAGE DISPOSAL ENGINEER [address] [place] [address] Palliative Medicine Provider HOSPICE & PALLIATIVE MEDICINE 06/28/21 Kylie Mosher, RN Specialty Airport Manager HOSPICE & PALLIATIVE MEDICINE 09/27/21 Press Writer Relationship Specialty [place] [address] [place] [address] PCP - General Internal Medicine 05/07/16 [place] [address] [place] [address] Consulting Hematology/Oncology 01/28/12 [place] [address] [place] [address] Specialty Airport Manager Hematology/Oncology 11/09/19 [place] [address] [place] [address] Hematology/Oncology 03/30/21 Kristina Pete, MAE Specialty Airport Manager HOSPICE & PALLIATIVE MEDICINE 05/22/21 Irene Han, HEAT READER.SEWAGE DISPOSAL ENGINEER [address] [place] [address] Palliative Medicine Provider HOSPICE & PALLIATIVE MEDICINE 06/28/21 Kylie Mosher, RN Specialty Airport Manager HOSPICE & PALLIATIVE MEDICINE 09/27/21 Press Writer Relationship Specialty [place] [address] [place] [address] PCP - General Internal Medicine 05/07/16 [place] [address] [place] [address] Consulting Hematology/Oncology 01/28/12 Marilyn Hughes, MAE [address] [place] [address] Specialty Airport Manager Hematology/Oncology 11/09/19 [place] [address] [place] [address] Hematology/Oncology 03/30/21 Kristina Pete, MAE Specialty Airport Manager HOSPICE & PALLIATIVE MEDICINE 05/22/21 Irene Han, HEAT READER.SEWAGE DISPOSAL ENGINEER [address] [place] [address] Palliative Medicine Provider HOSPICE & PALLIATIVE MEDICINE 06/28/21 Kylie Mosher RN Specialty Airport Manager HOSPICE & PALLIATIVE MEDICINE 09/27/21 Press Writer Relationship Specialty [place] [address] [place] [address] PCP - General Internal Medicine 05/07/16 [place] [address] [place] [address] Consulting Hematology/Oncology 01/28/12 [place]E [address] [place] [address] Specialty Airport Manager Hematology/Oncology 11/09/19 [place] [address] [place] [address] Hematology/Oncology 03/30/21 Kristina Pete, MAE Specialty Airport Manager HOSPICE & PALLIATIVE MEDICINE 05/22/21 Irene Han, HEAT READER.SEWAGE DISPOSAL ENGINEER [address] [place] [address] Palliative Medicine Provider HOSPICE & PALLIATIVE MEDICINE 06/28/21 Kylie Mosher RN Specialty Airport Manager HOSPICE & PALLIATIVE MEDICINE 09/27/21 Press Writer Relationship Specialty Start Date [place] [address] PCP - General Internal Medicine 05/07/16 Cyn [place] MD [id number] [place] [address] Consulting Hematology/Oncology 01/28/12 Marilyn Hughes, RN [id number] [place] [address] Specialty Airport Manager Hematology/Oncology 11/09/19 Cyn Hernandez MD [id number] [place] [address] Hematology/Oncology 03/30/21 Kristina Pete, MAE Specialty Airport Manager HOSPICE & PALLIATIVE MEDICINE 05/22/21 Irene Han, HEAT READER.SEWAGE DISPOSAL ENGINEER [address] [place] [address] Palliative Medicine Provider HOSPICE & PALLIATIVE MEDICINE 06/28/21 Kylie Mosher, RN Specialty Airport Manager HOSPICE & PALLIATIVE MEDICINE 09/27/21 Press Writer Relationship Specialty Start Date [place] [address] PCP - General Internal Medicine 05/07/16 [place] [address] [place] [address] Consulting Hematology/Oncology 01/28/12 Marilyn Hughes, MAE [address] [place] [address] Specialty Airport Manager Hematology/Oncology 11/09/19 Cyn Hernandez MD [address] [place] [address] Hematology/Oncology 03/30/21 Kristina Pete, MAE Specialty Airport Manager HOSPICE & PALLIATIVE MEDICINE 05/22/21 Irene Han, HEAT READER.SEWAGE DISPOSAL ENGINEER [address] [place] [address] Palliative Medicine Provider HOSPICE & PALLIATIVE MEDICINE 06/28/21 Kylie Mosher, RN Specialty Airport Manager HOSPICE & PALLIATIVE MEDICINE 09/27/21 Press Writer Relationship Specialty [place] [address] [place] [address] PCP - General Internal Medicine 05/07/16 [place] [address] [place] [address] Consulting Hematology/Oncology 01/28/12 [place]E [address] [place] [address] Specialty Airport Manager Hematology/Oncology 11/09/19 [place] [address] [place] [address] Hematology/Oncology 03/30/21 Kristina Pete, MAE Specialty Airport Manager HOSPICE & PALLIATIVE MEDICINE 05/22/21 Irene Han, HEAT READER.SEWAGE DISPOSAL ENGINEER [address] [place] [address] Palliative Medicine Provider HOSPICE & PALLIATIVE MEDICINE 06/28/21 Kylie Mosher, RN Specialty Airport Manager HOSPICE & PALLIATIVE MEDICINE 09/27/21 Press Writer Relationship Specialty [place] [address] [place] [address] PCP - General Internal Medicine 05/07/16 [place] [address] [place] [address] Consulting Hematology/Oncology 01/28/12 [place]E [address] [place] [address] Specialty Airport Manager Hematology/Oncology 11/09/19 [place] [address] [place] [address] Hematology/Oncology 03/30/21 Kristina Pete, RN Specialty Airport Manager HOSPICE & PALLIATIVE MEDICINE 05/22/21 Irene Han, HEAT READER.SEWAGE DISPOSAL ENGINEER [address] [place] [address] Palliative Medicine Provider HOSPICE & PALLIATIVE MEDICINE 06/28/21 Kylie Mosher, RN Specialty Airport Manager HOSPICE & PALLIATIVE MEDICINE 09/27/21 Press Writer Relationship Specialty [place] [address] [place] [address] PCP - General Internal Medicine 05/07/16 [place] [address] [place] [address] Consulting Hematology/Oncology 01/28/12 [place] [address] [place] [address] Hematology/Oncology 03/30/21 Kristina Pete, MAE Specialty Airport Manager HOSPICE & PALLIATIVE MEDICINE 05/22/21 Irene Han, HEAT READER.SEWAGE DISPOSAL ENGINEER [address] [facility] [place] [address] Palliative Medicine Provider HOSPICE & PALLIATIVE MEDICINE 06/28/21 Kylie Mosher RN Specialty Airport Manager HOSPICE & PALLIATIVE MEDICINE 09/27/21 Press Writer Relationship Specialty Start Date [place] [address] PCP - General Internal Medicine 05/07/16 [place] [address] [place] [address] Consulting Hematology/Oncology 01/28/12 [place] [address] [place] [address] Hematology/Oncology 03/30/21 Kristina Pete, RN Specialty Airport Manager HOSPICE & PALLIATIVE MEDICINE 05/22/21 Irene Han, HEAT READER.SEWAGE DISPOSAL ENGINEER [address] [place] [address] Palliative Medicine Provider HOSPICE & PALLIATIVE MEDICINE 06/28/21 Kylie Mosher, MAE Specialty Airport Manager HOSPICE & PALLIATIVE MEDICINE 09/27/21 Press Writer Relationship Specialty [place] [address] [place] [address] PCP - General Internal Medicine 05/07/16 [place] [address] [place] [address] Consulting Hematology/Oncology 01/28/12 [place] [address] [place] [address] Hematology/Oncology 03/30/21 Kristina Pete, MAE Specialty Airport Manager HOSPICE & PALLIATIVE MEDICINE 05/22/21 Irene Han, HEAT READER.SEWAGE DISPOSAL ENGINEER [address] [place] [address] Palliative Medicine Provider HOSPICE & PALLIATIVE MEDICINE 06/28/21 Kylie Mosher RN Specialty Airport Manager HOSPICE & PALLIATIVE MEDICINE 09/27/21 Press Writer Relationship Specialty Start Date [place] [address] PCP - General Internal Medicine 05/07/16 [place] [address] [place] [address] Consulting Hematology/Oncology 01/28/12 [place] [address] [place] [address] Hematology/Oncology 03/30/21 Kristina Pete, RN Specialty Airport Manager HOSPICE & PALLIATIVE MEDICINE 05/22/21 Irene Han, HEAT READER.SEWAGE DISPOSAL ENGINEER [address] [place] [address] Palliative Medicine Provider HOSPICE & PALLIATIVE MEDICINE 06/28/21 Kylie Mosher, MAE Specialty Airport Manager HOSPICE & PALLIATIVE MEDICINE 09/27/21 Press Writer Relationship Specialty Start Date [place] [address] PCP - General Internal Medicine 05/07/16 [place] [address] [place] [address] Consulting Hematology/Oncology 01/28/12 [place] [address] [place] [address] Hematology/Oncology 03/30/21 Kristina Pete, MAE Specialty Airport Manager HOSPICE & PALLIATIVE MEDICINE 05/22/21 Irene Han, HEAT READER.SEWAGE DISPOSAL ENGINEER [address] [place] [address] Palliative Medicine Provider HOSPICE & PALLIATIVE MEDICINE 06/28/21 Kylie Mosher RN Specialty Airport Manager HOSPICE & PALLIATIVE MEDICINE 09/27/21 Press Writer Relationship Specialty Start Date [place] [address] PCP - General Internal Medicine 05/07/16 [place] [address] [place] [address] Consulting Hematology/Oncology 01/28/12 [place] [address] Hematology/Oncology 03/30/21 Kristina Pete, RN Specialty Airport Manager HOSPICE & PALLIATIVE MEDICINE 05/22/21 Irene Han, HEAT READER.SEWAGE DISPOSAL ENGINEER [address] [place] [address] Palliative Medicine Provider HOSPICE & PALLIATIVE MEDICINE 06/28/21 Kylie Mosher, MAE Specialty Airport Manager HOSPICE & PALLIATIVE MEDICINE 09/27/21 Press Writer Relationship Specialty [place] [address] [place] [address] PCP - General Internal Medicine 05/07/16 [place] [address] [place] [address] Consulting Hematology/Oncology 01/28/12 [place] [address] Hematology/Oncology 03/30/21 Kristina Pete, MEA Specialty Airport Manager HOSPICE & PALLIATIVE MEDICINE 05/22/21 Irene Han, HEAT READER.SEWAGE DISPOSAL ENGINEER [address] [place] [address] Palliative Medicine Provider HOSPICE & PALLIATIVE MEDICINE 06/28/21 Kylie Mosher, RN Specialty Airport Manager HOSPICE & PALLIATIVE MEDICINE 09/27/21 Press Writer Relationship Specialty Start Date [place] [address] PCP - General Internal Medicine 05/07/16 [place] [address] Consulting Hematology/Oncology 01/28/12 [place] [address] Hematology/Oncology 03/30/21 Kristina Pete, MAE Specialty Airport Manager HOSPICE & PALLIATIVE MEDICINE 05/22/21 Irene Han, HEAT READER.SEWAGE DISPOSAL ENGINEER [address] [place] [phone] Palliative Medicine Provider HOSPICE & PALLIATIVE MEDICINE 06/28/21 Kylie Mosher RN Specialty Airport Manager HOSPICE & PALLIATIVE MEDICINE 09/27/21 Press Writer Relationship Specialty Start Date [place] [address] PCP - General Internal Medicine 05/07/16 [place] [address] Consulting Hematology/Oncology 01/28/12 [place] [address] Hematology/Oncology 03/30/21 Kristina Pete, MAE Specialty Airport Manager HOSPICE & PALLIATIVE MEDICINE 05/22/21 Irene Han, HEAT READER.SEWAGE DISPOSAL ENGINEER [address] [facility] [place] [id number] Palliative Medicine Provider HOSPICE & PALLIATIVE MEDICINE 06/28/21 Kylie Mosher RN Specialty Airport Manager HOSPICE & PALLIATIVE MEDICINE 09/27/21 Press Writer Relationship Specialty Start Date [place] [address] PCP - General Internal Medicine 05/07/16 [place] [address] Consulting Hematology/Oncology 01/28/12 [place] [address] Hematology/Oncology 03/30/21 Kristina Pete, MAE Specialty Airport Manager HOSPICE & PALLIATIVE MEDICINE 05/22/21 Irene Han, HEAT READER.SEWAGE DISPOSAL ENGINEER [address] [place] [phone] Palliative Medicine Provider HOSPICE & PALLIATIVE MEDICINE 06/28/21 Kylei Mosher RN Specialty Airport Manager HOSPICE & PALLIATIVE MEDICINE 09/27/21 Press Writer Relationship Specialty Start Date [place] [address] PCP - General Internal Medicine 05/07/16 [place] [address] Consulting Hematology/Oncology 01/28/12 [place] [address] Hematology/Oncology 03/30/21 Kristina Pete, MAE Specialty Airport Manager HOSPICE & PALLIATIVE MEDICINE 05/22/21 Irene Han, HEAT READER.SEWAGE DISPOSAL ENGINEER [address] [place] [address] Palliative Medicine Provider HOSPICE & PALLIATIVE MEDICINE 06/28/21 Kylie Mosher RN Specialty Airport Manager HOSPICE & PALLIATIVE MEDICINE 09/27/21 Press Writer Relationship Specialty Start [place] [address] PCP - General Internal Medicine 05/07/16 [place] [address] [place] [address] Consulting Hematology/Oncology 01/28/12 [place] [address] Hematology/Oncology 03/30/21 Kristina Pete, MAE Specialty Airport Manager HOSPICE & PALLIATIVE MEDICINE 05/22/21 Irene Han, HEAT READER.SEWAGE DISPOSAL ENGINEER [address] [id number] Palliative Medicine Provider HOSPICE & PALLIATIVE MEDICINE 06/28/21 Kylie Mosher RN Specialty Airport Manager HOSPICE & PALLIATIVE MEDICINE 09/27/21 Press Writer Relationship Specialty Start Date [place] [address] PCP - General Internal Medicine 05/07/16 [place] [address] [place] [address] Consulting Hematology/Oncology 01/28/12 [place] [address] Hematology/Oncology 03/30/21 Krsitina Pete, MAE Specialty Airport Manager HOSPICE & PALLIATIVE MEDICINE 05/22/21 Irene Han, HEAT READER.SEWAGE DISPOSAL ENGINEER [address] [place] [address] Palliative Medicine Provider HOSPICE & PALLIATIVE MEDICINE 06/28/21 Kylie Mosher RN Specialty Airport Manager HOSPICE & PALLIATIVE MEDICINE 09/27/21 Press Writer Relationship Specialty [place] [address] [place] [address] PCP - General Internal Medicine 05/07/16 [place] [address] [place] [address] Consulting Hematology/Oncology 01/28/12 [place] [address] Hematology/Oncology 03/30/21 Kristina Pete, MAE Specialty Airport Manager HOSPICE & PALLIATIVE MEDICINE 05/22/21 Irene Han, HEAT READER.SEWAGE DISPOSAL ENGINEER [address] [place] [address] Palliative Medicine Provider HOSPICE & PALLIATIVE MEDICINE 06/28/21 Kylie Mosher RN Specialty Airport Manager HOSPICE & PALLIATIVE MEDICINE 09/27/21 Press Writer Relationship Specialty Start [place] [address] PCP - General Internal Medicine 05/07/16 [place] [address] [place] [address] Consulting Hematology/Oncology 01/28/12 [place] [address] [place] [address] Hematology/Oncology 03/30/21 Kristina Pete, MAE Specialty Airport Manager HOSPICE & PALLIATIVE MEDICINE 05/22/21 Irene Han, HEAT READER.SEWAGE DISPOSAL ENGINEER [address] [place] [address] Palliative Medicine Provider HOSPICE & PALLIATIVE MEDICINE 06/28/21 Kylie Mosher RN Specialty Airport Manager HOSPICE & PALLIATIVE MEDICINE 09/27/21 Press Writer Relationship Specialty [place] [address] [place] [address] PCP - General Internal Medicine 05/07/16 [place] [address] [place] [address] Consulting Hematology/Oncology 01/28/12 [place] [address] [place] [address] Hematology/Oncology 03/30/21 Kristina Pete, MAE Specialty Airport Manager HOSPICE & PALLIATIVE MEDICINE 05/22/21 Irene Han, HEAT READER.SEWAGE DISPOSAL ENGINEER [address] [place] [address] Palliative Medicine Provider HOSPICE & PALLIATIVE MEDICINE 06/28/21 Kylie Mosher, RN Specialty Airport Manager HOSPICE & PALLIATIVE MEDICINE 09/27/21 Press Writer Relationship Specialty [place] [address] [place] [address] PCP - General Internal Medicine 05/07/16 [place] [address] [place] [address] Consulting Hematology/Oncology 01/28/12 [place] [address] [place] [address] Hematology/Oncology 03/30/21 Irene Han, HEAT READER.SEWAGE DISPOSAL ENGINEER [address] [place] [address] Palliative Medicine Provider HOSPICE & PALLIATIVE MEDICINE 06/28/21 Kylie Mosher RN Specialty Airport Manager HOSPICE & PALLIATIVE MEDICINE 09/27/21 Press Writer Relationship Specialty Start Date End Date [facility] [place] [address] PCP - General Internal Medicine 05/07/16 Cyn Hernandez MD [facility] [place] [address] Consulting Hematology/Oncology 01/28/12 Cyn Hernandez MD [facility] [place] [address] Hematology/Oncology 03/30/21 Irene Han, HEAT READER.SEWAGE DISPOSAL ENGINEER [address] [place] [address] Palliative Medicine Provider HOSPICE & PALLIATIVE MEDICINE 06/28/21 Kylie Mosher, RN Specialty Airport Manager HOSPICE & PALLIATIVE MEDICINE 09/27/21 Press Writer Relationship Specialty Start [place] [address] PCP - General Internal Medicine 05/07/16 [place] [address] Consulting Hematology/Oncology 01/28/12 [place] [address] Hematology/Oncology 03/30/21 Irene Han, HEAT READER.SEWAGE DISPOSAL ENGINEER [address] [place] [address] Palliative Medicine Provider HOSPICE & PALLIATIVE MEDICINE 06/28/21 Kylie Mosher, RN Specialty Airport Manager HOSPICE & PALLIATIVE MEDICINE 09/27/21 Press Writer Relationship Specialty Start [place] [address] PCP - General Internal Medicine 05/07/16 [place] [address] [place] [address] Consulting Hematology/Oncology 01/28/12 [place] [address] [place] [address] Hematology/Oncology 03/30/21 Irene Han, HEAT READER.SEWAGE DISPOSAL ENGINEER [address] [place] [address] Palliative Medicine Provider HOSPICE & PALLIATIVE MEDICINE 06/28/21 Kylie Mosher, RN Specialty Airport Manager HOSPICE & PALLIATIVE MEDICINE 09/27/21 Press Writer Relationship Specialty [place] [address] [place] [address] PCP - General Internal Medicine 05/07/16 [place] [address] [place] [address] Consulting Hematology/Oncology 01/28/12 [place] [address] [facility] [place] [address] Hematology/Oncology 03/30/21 Irene Han, HEAT READER.SEWAGE DISPOSAL ENGINEER [address] [place] [address] Palliative Medicine Provider HOSPICE & PALLIATIVE MEDICINE 06/28/21 Kylie Mosher, RN Specialty Airport Manager HOSPICE & PALLIATIVE MEDICINE 09/27/21 Press Writer Relationship Specialty [place] [address] [facility] [place] [address] PCP - General Internal Medicine 05/07/16 [place] [address] [place] [address] Consulting Hematology/Oncology 01/28/12 [place] [address] [place] [address] Hematology/Oncology 03/30/21 Irene Han, HEAT READER.SEWAGE DISPOSAL ENGINEER [address] [place] [address] Palliative Medicine Provider HOSPICE & PALLIATIVE MEDICINE 06/28/21 Kylie Mosher, RN Specialty Airport Manager HOSPICE & PALLIATIVE MEDICINE 09/27/21 Press Writer Relationship Specialty [place] [address] [place] [address] PCP - General Internal Medicine 05/07/16 [place] [address] [place] [address] Consulting Hematology/Oncology 01/28/12 [place] [address] [place] [address] Hematology/Oncology 03/30/21 Irene Han, HEAT READER.SEWAGE DISPOSAL ENGINEER [address] [place] [address] Palliative Medicine Provider HOSPICE & PALLIATIVE MEDICINE 06/28/21 Kylie Mosher RN Specialty Airport Manager HOSPICE & PALLIATIVE MEDICINE 09/27/21 Press Writer Relationship Specialty [place] [address] [place] [address] PCP - General Internal Medicine 05/07/16 [place] [address] [place] [address] Consulting Hematology/Oncology 01/28/12 [place] [address] [place] [address] Hematology/Oncology 03/30/21 Irene Han, LORY.SEWAGE DISPOSAL ENGINEER [address] [phone] Palliative Medicine Provider HOSPICE & PALLIATIVE MEDICINE 06/28/21 Kylie Mosher RN Specialty Airport Manager HOSPICE & PALLIATIVE MEDICINE 09/27/21 Press Writer Relationship Specialty [place] [address] [facility] [place] [address] PCP - General Internal Medicine 05/07/16 [place] [address] [facility] [place] [address] Consulting Hematology/Oncology 01/28/12 [place] [address] [facility] [place] [address] Hematology/Oncology 03/30/21 Irene Han, LORY.SEWAGE DISPOSAL ENGINEER [address] [phone] Palliative Medicine Provider HOSPICE & PALLIATIVE MEDICINE 06/28/21 Kylie Mosher RN Specialty Airport Manager HOSPICE & PALLIATIVE MEDICINE 09/27/21 Press Writer Relationship Specialty [place] [address] [facility] [place] [address] PCP - General Internal Medicine 05/07/16 [place] [address] [facility] [place] [address] Consulting Hematology/Oncology 01/28/12 [place] [address] [facility] [place] [address] Hematology/Oncology 03/30/21 Kristina Pete, RN Specialty Airport Manager HOSPICE & PALLIATIVE MEDICINE 05/22/21 08/06/22 Irene Han, HEAT READER.SEWAGE DISPOSAL ENGINEER [address] [place] [address] [phone] Palliative Medicine Provider HOSPICE & PALLIATIVE MEDICINE 06/28/21 Kylie Mosher, RN Specialty Airport Manager HOSPICE & PALLIATIVE MEDICINE 09/27/21 Press Writer Relationship Specialty [place] [address] [facility] [place] [address] PCP - General Internal Medicine 05/07/16 [place] [address] [facility] [place] [address] Consulting Hematology/Oncology 01/28/12 [place] [address] [facility] [place] [address] Hematology/Oncology 03/30/21 Irene Han, HEAT READER.SEWAGE DISPOSAL ENGINEER [address] [place], [place] [address], [place] [phone] Palliative Medicine Provider HOSPICE & PALLIATIVE MEDICINE 06/28/21 Kylie Mosher, RN Specialty Airport Manager HOSPICE & PALLIATIVE MEDICINE 09/27/21 Press Writer Relationship Specialty [place] [address] [place] [address] PCP - General Internal Medicine 05/07/16 [place] [address] [place] [address] Consulting Hematology/Oncology 01/28/12 [place] [address] [place] [address] Hematology/Oncology 03/30/21 Irene Han, LORY.SEWAGE DISPOSAL ENGINEER [address] [place] [address] Palliative Medicine Provider HOSPICE & PALLIATIVE MEDICINE 06/28/21 Kylie Mosher, RN Specialty Airport Manager HOSPICE & PALLIATIVE MEDICINE 09/27/21 Press Writer Relationship Specialty [place] [address] [facility] [place] [address] PCP - General Internal Medicine 05/07/16 [place] [address] [facility] [place] [address] Consulting Hematology/Oncology 01/28/12 [place] [address] [place] [address] Hematology/Oncology 03/30/21 Irene Han APRN.SEWAGE DISPOSAL ENGINEER [address] [place] [address] Palliative Medicine Provider HOSPICE & PALLIATIVE MEDICINE 06/28/21 Kylie Mosher, RN Specialty Airport Manager HOSPICE & PALLIATIVE MEDICINE 09/27/21 Press Writer Relationship Specialty [place] [address] [facility] [place] [address] PCP - General Internal Medicine 05/07/16 [place] [address] [facility] [place] [address] Consulting Hematology/Oncology 01/28/12 [place] [address] [place] [address] Hematology/Oncology 03/30/21 Irene Han, HEAT READER.SEWAGE DISPOSAL ENGINEER [address] [place] [address] Palliative Medicine Provider HOSPICE & PALLIATIVE MEDICINE 06/28/21 Kylie Mosher, RN Specialty Airport Manager HOSPICE & PALLIATIVE MEDICINE 09/27/21 Press Writer Relationship Specialty [place] [address] [facility] [place] [address] PCP - General Internal Medicine 05/07/16 [place] [address] [place] [address] Consulting Hematology/Oncology 01/28/12 [place] [address] [facility] [place] [address] Hematology/Oncology 03/30/21 Irene Han, HEAT READER.SEWAGE DISPOSAL ENGINEER [address] [phone] Palliative Medicine Provider HOSPICE & PALLIATIVE MEDICINE 06/28/21 Kylie Mosher, RN Specialty Airport Manager HOSPICE & PALLIATIVE MEDICINE 09/27/21 Press Writer Relationship Specialty [place] [address] [place] [address] PCP - General Internal Medicine 05/07/16 [place] [address] [place] [address] Consulting Hematology/Oncology 01/28/12 [place] [address] [place] [address] Hematology/Oncology 03/30/21 Irene Han, HEAT READER.SEWAGE DISPOSAL ENGINEER [address] [phone] Palliative Medicine Provider HOSPICE & PALLIATIVE MEDICINE 06/28/21 Kylie Mosher, RN Specialty Airport Manager HOSPICE & PALLIATIVE MEDICINE 09/27/21 Press Writer Relationship Specialty [place] [address] [place] [address] PCP - General Internal Medicine 05/07/16 [place] [address] [place] [address] Consulting Hematology/Oncology 01/28/12 [place] [address] [place] [address] Hematology/Oncology 03/30/21 Irene Han, HEAT READER.SEWAGE DISPOSAL ENGINEER [address] [place] [address] Palliative Medicine Provider HOSPICE & PALLIATIVE MEDICINE 06/28/21 Kylie Msoher, RN Specialty Airport Manager HOSPICE & PALLIATIVE MEDICINE 09/27/21 Press Writer Relationship Specialty [place] [address] [facility] [place] [address] PCP - General Internal Medicine 05/07/16 [place] [address] [facility] [place] [address] Consulting Hematology/Oncology 01/28/12 [place] [address] [facility] [place] [address] Hematology/Oncology 03/30/21 Irene Han, HEAT READER.SEWAGE DISPOSAL ENGINEER [address] [place] [address] Palliative Medicine Provider HOSPICE & PALLIATIVE MEDICINE 06/28/21 Kylie Mosher, RN Specialty Airport Manager HOSPICE & PALLIATIVE MEDICINE 09/27/21 Press Writer Relationship Specialty [place] [address] [facility] [place] [address] PCP - General Internal Medicine 05/07/16 [place] [address] [facility] [place] [address] Consulting Hematology/Oncology 01/28/12 [place] [address] [place] [address] Hematology/Oncology 03/30/21 Irene Han, HEAT READER.SEWAGE DISPOSAL ENGINEER [address] [phone] Palliative Medicine Provider HOSPICE & PALLIATIVE MEDICINE 06/28/21 Kylie Mosher, RN Specialty Airport Manager HOSPICE & PALLIATIVE MEDICINE 09/27/21 Press Writer Relationship Specialty [place] [address] [place] [address] PCP - General Internal Medicine 05/07/16 [place] [address] [place] [address] Consulting Hematology/Oncology 01/28/12 [place] [address] [place] [address] Hematology/Oncology 03/30/21 Irene Han, HEAT READER.SEWAGE DISPOSAL ENGINEER [address] [place] [address] Palliative Medicine Provider HOSPICE & PALLIATIVE MEDICINE 06/28/21 Kylie Mosher, RN Specialty Airport Manager HOSPICE & PALLIATIVE MEDICINE 09/27/21 Press Writer Relationship Specialty [place] [address] [place] [address] PCP - General Internal Medicine 05/07/16 [place] [address] [place] [address] Consulting Hematology/Oncology 01/28/12 [place] [address] [place] [address] Hematology/Oncology 03/30/21 Irene Han, HEAT READER.SEWAGE DISPOSAL ENGINEER [address] [phone] Palliative Medicine Provider HOSPICE & PALLIATIVE MEDICINE 06/28/21 Kylie Mosher RN Specialty Airport Manager HOSPICE & PALLIATIVE MEDICINE 09/27/21 Press Writer Relationship Specialty [place] [address] [facility] [place] [address] PCP - General Internal Medicine 05/07/16 [place] [address] [place] [address] Consulting Hematology/Oncology 01/28/12 [place] [address] [facility] [place] [address] Hematology/Oncology 03/30/21 Irene Han, HEAT READER.SEWAGE DISPOSAL ENGINEER [address] [place] [address] Palliative Medicine Provider HOSPICE & PALLIATIVE MEDICINE 06/28/21 Kylie Mosher, RN Specialty Airport Manager HOSPICE & PALLIATIVE MEDICINE 09/27/21 Press Writer Relationship Specialty [place] [address] [facility] [place] [address] PCP - General Internal Medicine 05/07/16 [place] [address] [place] [address] Consulting Hematology/Oncology 01/28/12 [place] [address] [place] [address] Hematology/Oncology 03/30/21 Irene Han, HEAT READER.SEWAGE DISPOSAL ENGINEER [address] [place] [address] Palliative Medicine Provider HOSPICE & PALLIATIVE MEDICINE 06/28/21 Kylie Mosher, RN Specialty Airport Manager HOSPICE & PALLIATIVE MEDICINE 09/27/21 Team Status: Active Member Role Status Dates Bee Vail MD Primary Care Provider Active Team Status: Inactive Member Role Status Dates Bee Vail MD Primary Care Provider Active Keke Bright NP-C Attending Provider Active Press Writer Relationship Specialty Start Date End Date Bee Vail MD PCP - General Internal Medicine 05/07/16 Irene Han, HEAT READER.SEWAGE DISPOSAL ENGINEER [address] [place] [address] Palliative Medicine Provider Hospice & Palliative Medicine 06/28/21 Kylie Mosher, RN Specialty Airport Manager Hospice & Palliative Medicine 09/27/21 Ruperto Ledezma MD [address] [place] [address] [place] [address] Physician Hematology 02/08/23 Ellyn Keller, HEAT READER.SEWAGE DISPOSAL ENGINEER [address] [facility] [place] [address] Referring Nurse Practitioner 02/26/23 Ellyn Keller, HEAT READER.SEWAGE DISPOSAL ENGINEER [address] [facility] [place] [address] Referring Nurse Practitioner 03/06/23 Fabiana Johnson LSW Internet Retailer 03/08/23 Press Writer Relationship Specialty Start Date End Date Bee Vail MD PCP - General Internal Medicine 05/07/16 Ireen Han, HEAT READER.SEWAGE DISPOSAL ENGINEER [address] [place] [address] Palliative Medicine Provider Hospice & Palliative Medicine 06/28/21 Kylie Mosher RN Specialty Airport Manager Hospice & Palliative Medicine 09/27/21 Ruperto Ledezma MD [address] [place] [address] [place] [address] Physician Hematology 02/08/23 Ellyn Keller, HEAT READER.SEWAGE DISPOSAL ENGINEER [address] [facility] [place] [address] Referring Nurse Practitioner 02/26/23 Ellyn Keller, HEAT READER.SEWAGE DISPOSAL ENGINEER [address] [facility] [place] [address] Referring Nurse Practitioner 03/06/23 Fabiana Johnson LSW Internet Retailer 03/08/23 Press Writer Relationship Specialty Start Date End Date Bee Vail MD PCP - General Internal Medicine 05/07/16 Irene Han, HEAT READER.SEWAGE DISPOSAL ENGINEER [address] [place] [address] [phone] Palliative Medicine Provider Hospice & Palliative Medicine 06/28/21 Kylie Mosher, RN Specialty Airport Manager Hospice & Palliative Medicine 09/27/21 Ruperto Ledezma MD [address] [place] [address] [place] [address] Physician Hematology 02/08/23 Ellyn Keller, HEAT READER.SEWAGE DISPOSAL ENGINEER [address] [facility] [place] [address] Referring Nurse Practitioner 02/26/23 Ellyn Keller, HEAT READER.SEWAGE DISPOSAL ENGINEER [address] [facility] [place] [address] Referring Nurse Practitioner 03/06/23 Fabiana Johnson LSW Internet Retailer 03/08/23 Press Writer Relationship Specialty Start Date End Date Bee Vail MD PCP - General Internal Medicine 05/07/16 Irene Han, HEAT READER.SEWAGE DISPOSAL ENGINEER [address] [place] [address] Palliative Medicine Provider Hospice & Palliative Medicine 06/28/21 Kylie Mosher, RN Specialty Airport Manager Hospice & Palliative Medicine 09/27/21 Ruperto Ledezma MD [address] [place] [address] [place] [address] Physician Hematology 02/08/23 Ellyn Keller, HEAT READER.SEWAGE DISPOSAL ENGINEER [address] [facility] [place] [address] Referring Nurse Practitioner 02/26/23 Ellyn Keller, HEAT READER.SEWAGE DISPOSAL ENGINEER [address] [facility] [place] [address] Referring Nurse Practitioner 03/06/23 Fabiana Johnson, BROADCAST JOURNALIST Internet Retailer 03/08/23 Press Writer Relationship Specialty Start Date End Date Bee Vail MD [address] [facility] [place] [address] PCP - [employer] 02/18/22 Bee Vail MD [address] [place] [address] [place] [address] PCP - General Internal Medicine 06/26/22 Press Writer Relationship Specialty Start Date End Date Bee Vail MD PCP - General Internal Medicine 05/07/16 Irene Han, HEAT READER.SEWAGE DISPOSAL ENGINEER [address] [place] [address] Palliative Medicine Provider Hospice & Palliative Medicine 06/28/21 Kylie Mosher, RN Specialty Airport Manager Hospice & Palliative Medicine 09/27/21 Ruperto Ledezma MD [address] [place] [address] [place] [address] Physician Hematology 02/08/23 Ellyn Keller, HEAT READER.SEWAGE DISPOSAL ENGINEER [address] [place] [address] [place] [address] Referring Nurse Practitioner 02/26/23 Ellyn Keller, HEAT READER.SEWAGE DISPOSAL ENGINEER [address] [place] [address] [place] [address] Referring Nurse Practitioner 03/06/23 Fabiana Johnson, BROADCAST JOURNALIST Internet Retailer 03/08/23 Press Writer Relationship Specialty Start Date End Date Bee Vail MD PCP - General Internal Medicine 05/07/16 Irene Han, HEAT READER.SEWAGE DISPOSAL ENGINEER [address] [place] [address] Palliative Medicine Provider Hospice & Palliative Medicine 06/28/21 Kylie Mosher, RN Specialty Airport Manager Hospice & Palliative Medicine 09/27/21 Ruperto Ledezma MD [address] [place] [address] [place] [address] Physician Hematology 02/08/23 Ellyn Keller, HEAT READER.SEWAGE DISPOSAL ENGINEER [address] [facility] [place] [address] Referring Nurse Practitioner 02/26/23 Ellyn Keller, HEAT READER.SEWAGE DISPOSAL ENGINEER [address] [facility] [place] [address] Referring Nurse Practitioner 03/06/23 Fabiana Johnson LSW Internet Retailer 03/08/23 Press Writer Relationship Specialty Start Date End Date Bee Vail MD PCP - General Internal Medicine 05/07/16 Irene Han, HEAT READER.SEWAGE DISPOSAL ENGINEER [address] [place] [address] Palliative Medicine Provider Hospice & Palliative Medicine 06/28/21 Kylie Mosher, RN Specialty Airport Manager Hospice & Palliative Medicine 09/27/21 Ruperto Ledezma MD [address] [place] [address] [place] [address] Physician Hematology 02/08/23 Ellyn Keller, HEAT READER.SEWAGE DISPOSAL ENGINEER [address] [place] [address] Referring Nurse Practitioner 02/26/23 Ellyn Keller, HEAT READER.SEWAGE DISPOSAL ENGINEER [address] [facility] [place] [address] Referring Nurse Practitioner 03/06/23 Fabiana Johnson LSW Internet Retailer 03/08/23 Press Writer Relationship Specialty Start Date End Date Bee Vali MD PCP - General Internal Medicine 05/07/16 Irene Han, HEAT READER.SEWAGE DISPOSAL ENGINEER [address] [place] [address] Palliative Medicine Provider Hospice & Palliative Medicine 06/28/21 Kylie Mosher RN Specialty Airport Manager Hospice & Palliative Medicine 09/27/21 Ruperto Ledezma MD [address] [place] [address] [place] [address] Physician Hematology 02/08/23 Ellyn Keller, HEAT READER.SEWAGE DISPOSAL ENGINEER [address] [facility] [place] [address] Referring Nurse Practitioner 02/26/23 Ellyn Keller, HEAT READER.SEWAGE DISPOSAL ENGINEER [address] [facility] [place] [address] Referring Nurse Practitioner 03/06/23 Fabiana Johnson LSW Internet Retailer 03/08/23 Press Writer Relationship Specialty Start Date End Date Bee Vail MD PCP - General Internal Medicine 05/07/16 Irene Han, HEAT READER.SEWAGE DISPOSAL ENGINEER [address] [place] [address] Palliative Medicine Provider Hospice & Palliative Medicine 06/28/21 Kylie Mosher, RN Specialty Airport Manager Hospice & Palliative Medicine 09/27/21 Ruperto [address] [place] [address] Physician Hematology 02/08/23 Ellyn Keller, HEAT READER.SEWAGE DISPOSAL ENGINEER [address] [facility] [place] [address] Referring Nurse Practitioner 02/26/23 Ellyn Keller, HEAT READER.SEWAGE DISPOSAL ENGINEER [address] [facility] [place] [address] Referring Nurse Practitioner 03/06/23 Fabiana Johnson LSW Internet Retailer 03/08/23 Press Writer Relationship Specialty Start Date End Date Bee Vail MD PCP - General Internal Medicine 05/07/16 Irene Han, HEAT READER.SEWAGE DISPOSAL ENGINEER [address] [place] [address] Palliative Medicine Provider Hospice & Palliative Medicine 06/28/21 Kylie Mosher, RN Specialty Airport Manager Hospice & Palliative Medicine 09/27/21 Ruperto Ledezma MD [address] [place] [address] Physician Hematology 02/08/23 Ellyn Keller, HEAT READER.SEWAGE DISPOSAL ENGINEER [address] [facility] [place] [address] Referring Nurse Practitioner 02/26/23 Ellyn Keller, HEAT READER.SEWAGE DISPOSAL ENGINEER [address] [facility] [place] [address] Referring Nurse Practitioner 03/06/23 Fabiana Johnson LSW Internet Retailer 03/08/23 Press Writer Relationship Specialty Start Date End Date Bee Vail MD PCP - General Internal Medicine 05/07/16 Irene Han, HEAT READER.SEWAGE DISPOSAL ENGINEER [address] [place] [address], [place] [address] Palliative Medicine Provider Hospice & Palliative Medicine 06/28/21 Kylie Mosher, RN Specialty Airport Manager Hospice & Palliative Medicine 09/27/21 Ruperto Ledezma MD [address] [place] [address] [place] [address] Physician Hematology 02/08/23 Ellyn Keller, HEAT READER.SEWAGE DISPOSAL ENGINEER [address] [facility] [place] [address] Referring Nurse Practitioner 02/26/23 Ellyn Keller, HEAT READER.SEWAGE DISPOSAL ENGINEER [address] [facility] [place] [address] Referring Nurse Practitioner 03/06/23 Fabiana Johnson LSW Internet Retailer 03/08/23 Press Writer Relationship Specialty Start Date End Date Bee Vail MD PCP - General Internal Medicine 05/07/16 Irene Han, HEAT READER.SEWAGE DISPOSAL ENGINEER [address] [facility], [place] [id number] Palliative Medicine Provider Hospice & Palliative Medicine 06/28/21 Kylie Mosher, RN Specialty Airport Manager Hospice & Palliative Medicine 09/27/21 Ruperto Ledezma MD [address] [place] [address] Physician Hematology 02/08/23 Ellyn Keller, HEAT READER.SEWAGE DISPOSAL ENGINEER [address] [facility] [place] [address] Referring Nurse Practitioner 02/26/23 Ellyn Keller, HEAT READER.SEWAGE DISPOSAL ENGINEER [address] [facility] [place] [address] Referring Nurse Practitioner 03/06/23 Fabiana Johnson LSW Internet Retailer 03/08/23 Press Writer Relationship Specialty Start Date End Date Bee Vail MD PCP - General Internal Medicine 05/07/16 Irene Han, HEAT READER.SEWAGE DISPOSAL ENGINEER [address] [place] [address] Palliative Medicine Provider Hospice & Palliative Medicine 06/28/21 Kylie Mosher, RN Specialty Airport Manager Hospice & Palliative Medicine 09/27/21 Ruperto Ledezma MD [address] [place] [address] Physician Hematology 02/08/23 Ellyn Keller, HEAT READER.SEWAGE DISPOSAL ENGINEER [address] [facility] [place] [address] Referring Nurse Practitioner 02/26/23 Ellyn Keller, HEAT READER.SEWAGE DISPOSAL ENGINEER [address] [facility] [place] [address] Referring Nurse Practitioner 03/06/23 Fabiana Johnson LSW Internet Retailer 03/08/23 Press Writer Relationship Specialty Start Date End Date Bee Vail MD PCP - General Internal Medicine 05/07/16 Irene Han, HEAT READER.SEWAGE DISPOSAL ENGINEER [address] [place] [address] Palliative Medicine Provider Hospice & Palliative Medicine 06/28/21 Kylie Mosher, RN Specialty Airport Manager Hospice & Palliative Medicine 09/27/21 Ruperto Ledezma MD [address] [place] [address] [place] [address] Physician Hematology 02/08/23 Ellyn Keller, HEAT READER.SEWAGE DISPOSAL ENGINEER [address] [facility] [place] [address] Referring Nurse Practitioner 02/26/23 Ellyn Keller, HEAT READER.SEWAGE DISPOSAL ENGINEER [address] [facility] [place] [address] Referring Nurse Practitioner 03/06/23 Fabiana Johnson LSW Internet Retailer 03/08/23 Press Writer Relationship Specialty Start Date End Date Bee Vail MD PCP - General Internal Medicine 05/07/16 Irene Han, HEAT READER.SEWAGE DISPOSAL ENGINEER [address] [place] [address] Palliative Medicine Provider Hospice & Palliative Medicine 06/28/21 Kylie Mosher, RN Specialty Airport Manager Hospice & Palliative Medicine 09/27/21 Ruperto Ledezma MD [address] [place] [address] [place] [address] Physician Hematology 02/08/23 Ellyn Keller, HEAT READER.SEWAGE DISPOSAL ENGINEER [address] [facility] [place] [address] Referring Nurse Practitioner 02/26/23 Ellyn Keller, HEAT READER.SEWAGE DISPOSAL ENGINEER [address] [facility] [place] [address] Referring Nurse Practitioner 03/06/23 Fabiana Johnson, BROADCAST JOURNALIST Internet Retailer 03/08/23 Press Writer Relationship Specialty Start Date End Date Bee Vail MD PCP - General Internal Medicine 05/07/16 Irene Han, HEAT READER.SEWAGE DISPOSAL ENGINEER [address] [place] [address] Palliative Medicine Provider Hospice & Palliative Medicine 06/28/21 Kylie Mosher, RN Specialty Airport Manager Hospice & Palliative Medicine 09/27/21 Ruperto Ledezma MD [address] [place] [address] [place] [address] Physician Hematology 02/08/23 Ellyn Keller, HEAT READER.SEWAGE DISPOSAL ENGINEER [address] [facility] [place] [address] Referring Nurse Practitioner 02/26/23 Ellyn Keller, HEAT READER.SEWAGE DISPOSAL ENGINEER [address] [facility] [place] [address] Referring Nurse Practitioner 03/06/23 Fabiana Johnson, BROADCAST JOURNALIST Internet Retailer 03/08/23 Press Writer Relationship Specialty Start Date End Date Bee Vail MD PCP - General Internal Medicine 05/07/16 Irene Han, HEAT READER.SEWAGE DISPOSAL ENGINEER [address] [place] [address] Palliative Medicine Provider Hospice & Palliative Medicine 06/28/21 Kylie Mosher, RN Specialty Airport Manager Hospice & Palliative Medicine 09/27/21 Ruperto Ledezma MD [address] [place] [address] [place] [address] Physician Hematology 02/08/23 Ellyn Keller, HEAT READER.SEWAGE DISPOSAL ENGINEER [address] [facility] [place] [address] Referring Nurse Practitioner 02/26/23 Ellyn Keller, HEAT READER.SEWAGE DISPOSAL ENGINEER [address] [facility] [place] [address] Referring Nurse Practitioner 03/06/23 Fabiana Johnson LSW Internet Retailer 03/08/23 Press Writer Relationship Specialty Start Date End Date Bee Vail MD PCP - General Internal Medicine 05/07/16 Irene Han, HEAT READER.SEWAGE DISPOSAL ENGINEER [address] [place] [address] Palliative Medicine Provider Hospice & Palliative Medicine 06/28/21 Kylie Mosher, RN Specialty Airport Manager Hospice & Palliative Medicine 09/27/21 Ruperto Ledezma MD [address] [place] [address] [place] [address] Physician Hematology 02/08/23 Ellyn Keller, HEAT READER.SEWAGE DISPOSAL ENGINEER [address] [facility] [place] [address] Referring Nurse Practitioner 02/26/23 Ellyn Keller, HEAT READER.SEWAGE DISPOSAL ENGINEER [address] [facility] [place] [address] Referring Nurse Practitioner 03/06/23 Fabiana Johnson LSW Internet Retailer 03/08/23 Press Writer Relationship Specialty Start Date End Date Bee Vail MD PCP - General Internal Medicine 05/07/16 Irene Han, HEAT READER.SEWAGE DISPOSAL ENGINEER [address] [place] [address] Palliative Medicine Provider Hospice & Palliative Medicine 06/28/21 Kylie Mosher RN Specialty Airport Manager Hospice & Palliative Medicine 09/27/21 Ruperto Ledezma MD [address] [place] [address] [place] [address] Physician Hematology 02/08/23 Ellyn Keller, HEAT READER.SEWAGE DISPOSAL ENGINEER [address] [facility] [place] [address] Referring Nurse Practitioner 02/26/23 Ellyn Keller, HEAT READER.SEWAGE DISPOSAL ENGINEER [address] [facility] [place] [address] Referring Nurse Practitioner 03/06/23 Fabiana Johnson LSW Internet Retailer 03/08/23 Press Writer Relationship Specialty Start Date End Date Bee Vail MD PCP - General Internal Medicine 05/07/16 Irene Han, HEAT READER.SEWAGE DISPOSAL ENGINEER [address] [place] [address] Palliative Medicine Provider Hospice & Palliative Medicine 06/28/21 Kylie Mosher, RN Specialty Airport Manager Hospice & Palliative Medicine 09/27/21 Ruperto Ledezma MD [address] [place] [address] Physician Hematology 02/08/23 Ellyn Keller, HEAT READER.SEWAGE DISPOSAL ENGINEER [address] [facility] [place] [address] Referring Nurse Practitioner 02/26/23 Ellyn Keller, HEAT READER.SEWAGE DISPOSAL ENGINEER [address] [facility] [place] [address] Referring Nurse Practitioner 03/06/23 Fabiana Johnson LSW Internet Retailer 03/08/23 Press Writer Relationship Specialty Start Date End Date Bee Vail MD PCP - General Internal Medicine 05/07/16 Irene Han, HEAT READER.SEWAGE DISPOSAL ENGINEER [address] [place] [address] Palliative Medicine Provider Hospice & Palliative Medicine 06/28/21 Kylie Mosher, RN Specialty Airport Manager Hospice & Palliative Medicine 09/27/21 Ruperto Ledezma MD [address] [place] [address] Physician Hematology 02/08/23 Ellyn Keller, HEAT READER.SEWAGE DISPOSAL ENGINEER [address] [facility] [place] [address] Referring Nurse Practitioner 02/26/23 Ellyn Keller, HEAT READER.SEWAGE DISPOSAL ENGINEER [address] [facility] [place] [address] Referring Nurse Practitioner 03/06/23 Fabiana Johnson LSW Internet Retailer 03/08/23 Press Writer Relationship Specialty Start Date End Date Bee Vail MD PCP - General Internal Medicine 05/07/16 Irene Han, HEAT READER.SEWAGE DISPOSAL ENGINEER [address] [facility] [address] Palliative Medicine Provider Hospice & Palliative Medicine 06/28/21 Kylie Mosher, RN Specialty Airport Manager Hospice & Palliative Medicine 09/27/21 Ruperto Ledezma MD [address] [place] [address] [place] [address] Physician Hematology 02/08/23 Ellyn Keller, HEAT READER.SEWAGE DISPOSAL ENGINEER [address] [facility] [place] [address] Referring Nurse Practitioner 02/26/23 Ellyn Keller, HEAT READER.SEWAGE DISPOSAL ENGINEER [address] [facility] [place] [address] Referring Nurse Practitioner 03/06/23 Fabiana Johnson LSW Internet Retailer 03/08/23 Press Writer Relationship Specialty Start Date End Date Bee Vail MD PCP - General Internal Medicine 05/07/16 Irene Han, HEAT READER.SEWAGE DISPOSAL ENGINEER [address] [facility] [address] Palliative Medicine Provider Hospice & Palliative Medicine 06/28/21 Klyie Mosher, RN Specialty Airport Manager Hospice & Palliative Medicine 09/27/21 Ruperto Ledezma MD [address] [facility] [place] [address] Physician Hematology 02/08/23 Ellyn Keller, HEAT READER.SEWAGE DISPOSAL ENGINEER [address] [facility] [place] [address] Referring Nurse Practitioner 02/26/23 Ellyn Keller, HEAT READER.SEWAGE DISPOSAL ENGINEER [address] [facility] [place] [address] Referring Nurse Practitioner 03/06/23 Fabiana Johnson LSW Internet Retailer 03/08/23 Press Writer Relationship Specialty Start Date End Date Bee Vail MD PCP - General Internal Medicine 05/07/16 Irene Han, HEAT READER.SEWAGE DISPOSAL ENGINEER [address] [place] [address] Palliative Medicine Provider Hospice & Palliative Medicine 06/28/21 Kylie Mosher RN Specialty Airport Manager Hospice & Palliative Medicine 09/27/21 Ruperto Ledezma MD [address] [place] [address] Physician Hematology 02/08/23 Ellyn Keller, HEAT READER.SEWAGE DISPOSAL ENGINEER [address] [facility] [place] [address] Referring Nurse Practitioner 02/26/23 Ellyn Keller, HEAT READER.SEWAGE DISPOSAL ENGINEER [address] [facility] [place] [address] Referring Nurse Practitioner 03/06/23 Fabiana Johnson LSW Internet Retailer 03/08/23 Press Writer Relationship Specialty Start Date End Date Bee Vail MD PCP - General Internal Medicine 05/07/16 Irene Han, HEAT READER.SEWAGE DISPOSAL ENGINEER [address] [place] [address] Palliative Medicine Provider Hospice & Palliative Medicine 06/28/21 Kylie Mosher, RN Specialty Airport Manager Hospice & Palliative Medicine 09/27/21 Ruperto Ledezma MD [address] [place] [address] [place] [address] Physician Hematology 02/08/23 Ellyn Keller, HEAT READER.SEWAGE DISPOSAL ENGINEER [address] [facility] [place] [address] Referring Nurse Practitioner 02/26/23 Ellyn Keller, HEAT READER.SEWAGE DISPOSAL ENGINEER [address] [facility] [place] [address] Referring Nurse Practitioner 03/06/23 Fabiana Johnson LSW Internet Retailer 03/08/23 Press Writer Relationship Specialty Start Date End Date Bee Vail MD PCP - General Internal Medicine 05/07/16 Irene Han, HEAT READER.SEWAGE DISPOSAL ENGINEER [address] [place] [address] Palliative Medicine Provider Hospice & Palliative Medicine 06/28/21 Kylie Mosher, RN Specialty Airport Manager Hospice & Palliative Medicine 09/27/21 Ruperto Ledezma MD [address] [place] [address] [place] [address] Physician Hematology 02/08/23 Ellyn Keller, HEAT READER.SEWAGE DISPOSAL ENGINEER [address] [facility] [place] [address] Referring Nurse Practitioner 02/26/23 Ellyn Keller, HEAT READER.SEWAGE DISPOSAL ENGINEER [address] [facility] [place] [address] Referring Nurse Practitioner 03/06/23 Fabiana Johnson, BROADCAST JOURNALIST Internet Retailer 03/08/23 Press Writer Relationship Specialty Start Date End Date Bee Vail MD PCP - General Internal Medicine 05/07/16 Irene Han, HEAT READER.SEWAGE DISPOSAL ENGINEER [address] [place] [address] Palliative Medicine Provider Hospice & Palliative Medicine 06/28/21 Kylie Mosher, RN Specialty Airport Manager Hospice & Palliative Medicine 09/27/21 Ruperto Ledezma MD [address] [place] [address] [place] [address] Physician Hematology 02/08/23 Ellyn Keller, HEAT READER.SEWAGE DISPOSAL ENGINEER [address] [facility] [place] [address] Referring Nurse Practitioner 02/26/23 Ellyn Keller, HEAT READER.SEWAGE DISPOSAL ENGINEER [address] [facility] [place] [address] Referring Nurse Practitioner 03/06/23 Fabiana Johnson, BROADCAST JOURNALIST Internet Retailer 03/08/23 Press Writer Relationship Specialty Start Date End Date Bee Vail MD PCP - General Internal Medicine 05/07/16 Irene Han, HEAT READER.SEWAGE DISPOSAL ENGINEER [address] [place] [address] Palliative Medicine Provider Hospice & Palliative Medicine 06/28/21 Kylie Mosher, RN Specialty Airport Manager Hospice & Palliative Medicine 09/27/21 Ruperto Ledezma MD [address] [place] [address] [place] [address] Physician Hematology 02/08/23 Ellyn Keller, HEAT READER.SEWAGE DISPOSAL ENGINEER [address] [facility] [place] [address] Referring Nurse Practitioner 02/26/23 Ellyn Keller, HEAT READER.SEWAGE DISPOSAL ENGINEER [address] [facility] [place] [address] Referring Nurse Practitioner 03/06/23 Fabiana Johnson LSW Internet Retailer 03/08/23 Press Writer Relationship Specialty Start Date End Date Bee Vail MD PCP - General Internal Medicine 05/07/16 Irene Han, HEAT READER.SEWAGE DISPOSAL ENGINEER [address] [place] [address] Palliative Medicine Provider Hospice & Palliative Medicine 06/28/21 Kylie Mosher, RN Specialty Airport Manager Hospice & Palliative Medicine 09/27/21 Ruperto Ledezma MD [address] [place] [address] [place] [address] Physician Hematology 02/08/23 Ellyn Keller, HEAT READER.SEWAGE DISPOSAL ENGINEER [address] [facility] [place] [address] Referring Nurse Practitioner 02/26/23 Ellyn Keller, HEAT READER.SEWAGE DISPOSAL ENGINEER [address] [facility] [place] [address] Referring Nurse Practitioner 03/06/23 Fabiana Johnson LSW Internet Retailer 03/08/23 Press Writer Relationship Specialty Start Date End Date Bee Vail MD PCP - General Internal Medicine 05/07/16 Irene Han, HEAT READER.SEWAGE DISPOSAL ENGINEER [address] [place] [address] Palliative Medicine Provider Hospice & Palliative Medicine 06/28/21 Kylie Mosher RN Specialty Airport Manager Hospice & Palliative Medicine 09/27/21 Ruperto Ledezma MD [address] [place] [address] [place] [address] Physician Hematology 02/08/23 Ellyn Keller, HEAT READER.SEWAGE DISPOSAL ENGINEER [address] [facility] [place] [address] Referring Nurse Practitioner 02/26/23 Ellyn Keller, HEAT READER.SEWAGE DISPOSAL ENGINEER [address] [facility] [place] [address] Referring Nurse Practitioner 03/06/23 Fabiana Johnson LSW Internet Retailer 03/08/23 Press Writer Relationship Specialty Start Date End Date Bee Vail MD PCP - General Internal Medicine 05/07/16 Irene Han, HEAT READER.SEWAGE DISPOSAL ENGINEER [address] [place] [address] Palliative Medicine Provider Hospice & Palliative Medicine 06/28/21 Kylie Mosher, RN Specialty Airport Manager Hospice & Palliative Medicine 09/27/21 Ruperto Ledezma MD [address] [place] [address] Physician Hematology 02/08/23 Ellyn Keller, HEAT READER.SEWAGE DISPOSAL ENGINEER [address] [facility] [place] [address] Referring Nurse Practitioner 02/26/23 Ellyn Keller, HEAT READER.SEWAGE DISPOSAL ENGINEER [address] [facility] [place] [address] Referring Nurse Practitioner 03/06/23 Fabiana Johnson LSW Internet Retailer 03/08/23 Press Writer Relationship Specialty Start Date End Date Bee Vail MD PCP - General Internal Medicine 05/07/16 Irene Han, HEAT READER.SEWAGE DISPOSAL ENGINEER [address] [place] [address] Palliative Medicine Provider Hospice & Palliative Medicine 06/28/21 Kylie Mosher, RN Specialty Airport Manager Hospice & Palliative Medicine 09/27/21 Ruperto Ledezma MD [address] [place] [address] Physician Hematology 02/08/23 Ellyn Keller, HEAT READER.SEWAGE DISPOSAL ENGINEER [address] [facility] [place] [address] Referring Nurse Practitioner 02/26/23 Ellyn Keller, HEAT READER.SEWAGE DISPOSAL ENGINEER [address] [facility] [place] [address] Referring Nurse Practitioner 03/06/23 Fabiana Johnson LSW Internet Retailer 03/08/23 Press Writer Relationship Specialty Start Date End Date Bee Vail MD PCP - General Internal Medicine 05/07/16 Irene Han, HEAT READER.SEWAGE DISPOSAL ENGINEER [address] [place] [address] Palliative Medicine Provider Hospice & Palliative Medicine 06/28/21 Kylie Mosher, RN Specialty Airport Manager Hospice & Palliative Medicine 09/27/21 Ruperto Ledezma MD [address] [place] [address] [place] [address] Physician Hematology 02/08/23 Ellyn Keller, HEAT READER.SEWAGE DISPOSAL ENGINEER [address] [facility] [place] [address] Referring Nurse Practitioner 02/26/23 Ellyn Keller, HEAT READER.SEWAGE DISPOSAL ENGINEER [address] [facility] [place] [address] Referring Nurse Practitioner 03/06/23 Fabiana Johnson LSW Internet Retailer 03/08/23 Press Writer Relationship Specialty Start Date End Date Bee Vail MD PCP - General Internal Medicine 05/07/16 Irene Han, HEAT READER.SEWAGE DISPOSAL ENGINEER [address] [place] [address] Palliative Medicine Provider Hospice & Palliative Medicine 06/28/21 Kylie Mosher, RN Specialty Airport Manager Hospice & Palliative Medicine 09/27/21 Ruperto Ledezma MD [address] [facility] [place] [address] Physician Hematology 02/08/23 Ellyn Keller, HEAT READER.SEWAGE DISPOSAL ENGINEER [address] [facility] [place] [address] Referring Nurse Practitioner 02/26/23 Ellyn Keller, HEAT READER.SEWAGE DISPOSAL ENGINEER [address] [facility] [place] [address] Referring Nurse Practitioner 03/06/23 Fabiana Johnson LSW Internet Retailer 03/08/23 Press Writer Relationship Specialty Start Date End Date Bee Vail MD PCP - General Internal Medicine 05/07/16 Irene Han, HEAT READER.SEWAGE DISPOSAL ENGINEER [address] [place] [address] Palliative Medicine Provider Hospice & Palliative Medicine 06/28/21 Kylie Mosher, RN Specialty Airport Manager Hospice & Palliative Medicine 09/27/21 Ruperto Ledezma MD [address] [place] [address] Physician Hematology 02/08/23 Ellyn Keller, HEAT READER.SEWAGE DISPOSAL ENGINEER [address] [facility] [place] [address] Referring Nurse Practitioner 02/26/23 Ellyn Keller, HEAT READER.SEWAGE DISPOSAL ENGINEER [address] [facility] [place] [address] Referring Nurse Practitioner 03/06/23 Fabiana Johnson LSW Internet Retailer 03/08/23 Press Writer Relationship Specialty Start Date End Date Bee Vail MD PCP - General Internal Medicine 05/07/16 Irene Han, HEAT READER.SEWAGE DISPOSAL ENGINEER [address] [place] [address] Palliative Medicine Provider Hospice & Palliative Medicine 06/28/21 Kylie Mosher, RN Specialty Airport Manager Hospice & Palliative Medicine 09/27/21 Ruperto Ledezma MD [address] [place] [address] [place] [address] Physician Hematology 02/08/23 Ellyn Keller, HEAT READER.SEWAGE DISPOSAL ENGINEER [address] [facility] [place] [address] Referring Nurse Practitioner 02/26/23 Ellyn Keller, HEAT READER.SEWAGE DISPOSAL ENGINEER [address] [facility] [place] [address] Referring Nurse Practitioner 03/06/23 Fabiana Johnson LSW Internet Retailer 03/08/23 Press Writer Relationship Specialty Start Date End Date Bee Vail MD PCP - General Internal Medicine 05/07/16 Irene Han, HEAT READER.SEWAGE DISPOSAL ENGINEER [address] [place] [address] Palliative Medicine Provider Hospice & Palliative Medicine 06/28/21 Kylie Mosher, RN Specialty Airport Manager Hospice & Palliative Medicine 09/27/21 Ruperto Ledezma MD [address] [place] [address] [place] [address] Physician Hematology 02/08/23 Ellyn Keller, HEAT READER.SEWAGE DISPOSAL ENGINEER [address] [facility] [place] [address] Referring Nurse Practitioner 02/26/23 Ellyn Keller, HEAT READER.SEWAGE DISPOSAL ENGINEER [address] [facility] [place] [address] Referring Nurse Practitioner 03/06/23 Fabiana Johnson LSW Internet Retailer 03/08/23 Press Writer Relationship Specialty Start Date End Date Bee Vail MD PCP - General Internal Medicine 05/07/16 Irene Han, HEAT READER.SEWAGE DISPOSAL ENGINEER [address] [place] [address] Palliative Medicine Provider Hospice & Palliative Medicine 06/28/21 Kylie Mosher, RN Specialty Airport Manager Hospice & Palliative Medicine 09/27/21 Ruperto Ledezma MD [address] [place] [address] [place] [address] Physician Hematology 02/08/23 Ellyn Keller, HEAT READER.SEWAGE DISPOSAL ENGINEER [address] [place] [address] [place] [address] Referring Nurse Practitioner 02/26/23 Ellyn Keller, HEAT READER.SEWAGE DISPOSAL ENGINEER [address] [facility] [place] [address] Referring Nurse Practitioner 03/06/23 Fabiana Johnson LSW Internet Retailer 03/08/23 Press Writer Relationship Specialty Start Date End Date Bee Vail MD PCP - General Internal Medicine 05/07/16 Irene Han, HEAT READER.SEWAGE DISPOSAL ENGINEER [address] [place] [address] Palliative Medicine Provider Hospice & Palliative Medicine 06/28/21 Kylie Mosher, RN Specialty Airport Manager Hospice & Palliative Medicine 09/27/21 Ruperto Ledezma MD [address] [place] [address] [place] [address] Physician Hematology 02/08/23 Ellyn Keller, HEAT READER.SEWAGE DISPOSAL ENGINEER [address] [facility] [place] [address] Referring Nurse Practitioner 02/26/23 Ellyn Keller, HEAT READER.SEWAGE DISPOSAL ENGINEER [address] [place] [address] [place] [address] Referring Nurse Practitioner 03/06/23 Fabiana Johnson LSW Internet Retailer 03/08/23 Press Writer Relationship Specialty Start Date End Date Bee Vail MD PCP - General Internal Medicine 05/07/16 Irene Han, HEAT READER.SEWAGE DISPOSAL ENGINEER [address] [place] [address] Palliative Medicine Provider Hospice & Palliative Medicine 06/28/21 Kylie Mosher, RN Specialty Airport Manager Hospice & Palliative Medicine 09/27/21 Ruperto Ledezma MD [address] [place] [address] [place] [address] Physician Hematology 02/08/23 Ellyn Keller, HEAT READER.SEWAGE DISPOSAL ENGINEER [address] [facility] [place] [address] Referring Nurse Practitioner 02/26/23 Ellyn Keller, HEAT READER.SEWAGE DISPOSAL ENGINEER [address] [facility] [place] [place] [address] Referring Nurse Practitioner 03/06/23 Fabiana Johnson LSW Internet Retailer 03/08/23 Press Writer Relationship Specialty Start Date End Date Bee Vail MD PCP - General Internal Medicine 05/07/16 Irene Han, HEAT READER.SEWAGE DISPOSAL ENGINEER [address] [place] [address] Palliative Medicine Provider Hospice & Palliative Medicine 06/28/21 Kylie Mosher RN Specialty Airport Manager Hospice & Palliative Medicine 09/27/21 Ruperto Ledezma MD [address] [place] [address] [place] [address] Physician Hematology 02/08/23 Ellyn Keller, HEAT READER.SEWAGE DISPOSAL ENGINEER [address] [facility] [place] [address] Referring Nurse Practitioner 02/26/23 Ellyn Keller, HEAT READER.SEWAGE DISPOSAL ENGINEER [address] [facility] [place] [address] Referring Nurse Practitioner 03/06/23 Fabiana Johnson LSW Internet Retailer 03/08/23 Press Writer Relationship Specialty Start Date End Date Bee Vail MD PCP - General Internal Medicine 05/07/16 Irene Han, HEAT READER.SEWAGE DISPOSAL ENGINEER [address] [place] [address] Palliative Medicine Provider Hospice & Palliative Medicine 06/28/21 Kylie Mosher, RN Specialty Airport Manager Hospice & Palliative Medicine 09/27/21 Ruperto Ledezma MD [address] [place] [address] Physician Hematology 02/08/23 Ellyn Keller, HEAT READER.SEWAGE DISPOSAL ENGINEER [address] [facility] [place] [address] Referring Nurse Practitioner 02/26/23 Ellyn Keller, HEAT READER.SEWAGE DISPOSAL ENGINEER [address] [facility] [place] [address] Referring Nurse Practitioner 03/06/23 Fabiana Johnson LSW Internet Retailer 03/08/23 Press Writer Relationship Specialty Start Date End Date Bee Vail MD PCP - General Internal Medicine 05/07/16 Irene Han, HEAT READER.SEWAGE DISPOSAL ENGINEER [address] [place] [address] Palliative Medicine Provider Hospice & Palliative Medicine 06/28/21 Kylie Mosher, RN Specialty Airport Manager Hospice & Palliative Medicine 09/27/21 Ruperto Ledezma MD [address] [place] [address] [place] [address] Physician Hematology 02/08/23 Ellyn Keller, HEAT READER.SEWAGE DISPOSAL ENGINEER [address] [facility] [place] [address] Referring Nurse Practitioner 02/26/23 Ellyn Keller, HEAT READER.SEWAGE DISPOSAL ENGINEER [address] [facility] [place] [address] Referring Nurse Practitioner 03/06/23 Fabiana Johnson LSW Internet Retailer 03/08/23 Press Writer Relationship Specialty Start Date End Date Bee Vail MD PCP - General Internal Medicine 05/07/16 Irene Han, HEAT READER.SEWAGE DISPOSAL ENGINEER [address] [place] [address] Palliative Medicine Provider Hospice & Palliative Medicine 06/28/21 Kylie Mosher, RN Specialty Airport Manager Hospice & Palliative Medicine 09/27/21 Ruperto Ledezma MD [address] [place] [address] [place] [address] Physician Hematology 02/08/23 Ellyn Keller, HEAT READER.SEWAGE DISPOSAL ENGINEER [address] [facility] [place] [place] [address] Referring Nurse Practitioner 02/26/23 Ellyn Keller, HEAT READER.SEWAGE DISPOSAL ENGINEER [address] [facility] [place] [address] Referring Nurse Practitioner 03/06/23 Fabiana Johnson LSW Internet Retailer 03/08/23 Press Writer Relationship Specialty Start Date End Date Bee Vail MD PCP - General Internal Medicine 05/07/16 Irene Han, HEAT READER.SEWAGE DISPOSAL ENGINEER [address] [place] [address] Palliative Medicine Provider Hospice & Palliative Medicine 06/28/21 Kylie Mosher, RN Specialty Airport Manager Hospice & Palliative Medicine 09/27/21 Ruperto Ledezma [address] [facility] [place] [address] Physician Hematology 02/08/23 Ellyn Keller, HEAT READER.SEWAGE DISPOSAL ENGINEER [address] [facility] [place] [address] Referring Nurse Practitioner 02/26/23 Ellyn Keller, HEAT READER.SEWAGE DISPOSAL ENGINEER [address] [facility] [place] [address] Referring Nurse Practitioner 03/06/23 Fabiana Johnson LSW Internet Retailer 03/08/23 Press Writer Relationship Specialty Start Date End Date Bee Vail MD PCP - General Internal Medicine 05/07/16 Irene Han, HEAT READER.SEWAGE DISPOSAL ENGINEER [address] [facility] [address] Palliative Medicine Provider Hospice & Palliative Medicine 06/28/21 Kylie Mosher RN Specialty Airport Manager Hospice & Palliative Medicine 09/27/21 Ruperto Ledezma MD [address] [place] [address] Physician Hematology 02/08/23 Ellyn Keller, HEAT READER.SEWAGE DISPOSAL ENGINEER [address] [facility] [place] [address] Referring Nurse Practitioner 02/26/23 Ellyn Keller, HEAT READER.SEWAGE DISPOSAL ENGINEER [address] [facility] [place] [address] Referring Nurse Practitioner 03/06/23 Fabiana Johnson LSW Internet Retailer 03/08/23 Press Writer Relationship Specialty [place] [address] [place] [address] PCP - General Internal Medicine 05/07/16 [place] [address] [place] [address] Consulting Hematology/Oncology 01/28/12 02/07/23 [place] [address] [place] [address] Hematology/Oncology 03/30/21 02/07/23 Irene Han, HEAT READER.SEWAGE DISPOSAL ENGINEER [address] [facility] [place] [address] Palliative Medicine Provider Hospice & Palliative Medicine 06/28/21 Kylie Mosher, RN Specialty Airport Manager Hospice & Palliative Medicine 09/27/21 Press Writer Relationship Specialty [place] [address] [place] [address] PCP - General Internal Medicine 05/07/16 [place] [address] [place] [address] Consulting Hematology/Oncology 01/28/12 02/07/23 [place] [address] [place] [address] Hematology/Oncology 03/30/21 02/07/23 Irene Han, HEAT READER.SEWAGE DISPOSAL ENGINEER [address] [place] [address] Palliative Medicine Provider Hospice & Palliative Medicine 06/28/21 Kylie Mosher, RN Specialty Airport Manager Hospice & Palliative Medicine 09/27/21 Press Writer Relationship Specialty Start Date End Date Bee Vail MD PCP - General Internal Medicine 05/07/16 Irene Han, HEAT READER.SEWAGE DISPOSAL ENGINEER [address] [place] [address] Palliative Medicine Provider Hospice & Palliative Medicine 06/28/21 Kylie Mosher, RN Specialty Airport Manager Hospice & Palliative Medicine 09/27/21 Ruperto Ledezma MD [address] [place] [address] [place] [address] Physician Hematology 02/08/23 Ellyn Keller, HEAT READER.SEWAGE DISPOSAL ENGINEER [address] [facility] [place] [address] Referring Nurse Practitioner 02/26/23 Ellyn Keller, HEAT READER.SEWAGE DISPOSAL ENGINEER [address] [facility] [place] [address] Referring Nurse Practitioner 03/06/23 Fabiana Johnson LSW Internet Retailer 03/08/23 Press Writer Relationship Specialty Start Date End Date Bee Vail MD PCP - General Internal Medicine 05/07/16 Irene Han, HEAT READER.SEWAGE DISPOSAL ENGINEER [address] [place] [address] Palliative Medicine Provider Hospice & Palliative Medicine 06/28/21 Kylie Mosher, RN Specialty Airport Manager Hospice & Palliative Medicine 09/27/21 Ruperto Ledezma MD [address] [place] [address] [place] [address] Physician Hematology 02/08/23 Ellyn Keller, HEAT READER.SEWAGE DISPOSAL ENGINEER [address] [facility] [place] [address] Referring Nurse Practitioner 02/26/23 Ellyn Keller, HEAT READER.SEWAGE DISPOSAL ENGINEER [address] [facility] [place] [address] Referring Nurse Practitioner 03/06/23 Fabiana Johnson LSW Internet Retailer 03/08/23 Press Writer Relationship Specialty [place] [address] [place] [address] PCP - General Internal Medicine 05/07/16 [place] [address] [place] [address] Consulting Hematology/Oncology 01/28/12 02/07/23 [place] [address] [place] [address] Specialty Airport Manager Hematology/Oncology 11/09/19 05/17/22 [place] [address] [place] [address] Hematology/Oncology 03/30/21 02/07/23 Kristina Pete, MAE Specialty Airport Manager Hospice & Palliative Medicine 05/22/21 08/06/22 Irene Han, HEAT READER.SEWAGE DISPOSAL ENGINEER [address] [place] [address] Palliative Medicine Provider Hospice & Palliative Medicine 06/28/21 Kylie Mosher, RN Specialty Airport Manager Hospice & Palliative Medicine 09/27/21 Press Writer Relationship Specialty Start Date End Date Bee Vail MD PCP - General Internal Medicine 05/07/16 Irene Han, HEAT READER.SEWAGE DISPOSAL ENGINEER [address] [place] [address] Palliative Medicine Provider Hospice & Palliative Medicine 06/28/21 Kylie Mosher, RN Specialty Airport Manager Hospice & Palliative Medicine 09/27/21 Ruperto Ledezma MD [address] [place] [address] [place] [address] Physician Hematology 02/08/23 Ellyn Keller, HEAT READER.SEWAGE DISPOSAL ENGINEER [address] [facility] [place] [address] Referring Nurse Practitioner 02/26/23 Ellyn Keller, HEAT READER.SEWAGE DISPOSAL ENGINEER [address] [facility] [place] [address] Referring Nurse Practitioner 03/06/23 Fabinaa Johnson LSW Internet Retailer 03/08/23 Press Writer Relationship Specialty [place] [address] [place] [id number] PCP - General Internal Medicine 05/07/16 [place] [address] Consulting Hematology/Oncology 01/28/12 02/07/23 [place] [address] Specialty Airport Manager Hematology/Oncology 11/09/19 05/17/22 [place] [address] [place] [address] Hematology/Oncology 03/30/21 02/07/23 Kristina Pete, RN Specialty Airport Manager Hospice & Palliative Medicine 05/22/21 08/06/22 Irene Han, HEAT READER.SEWAGE DISPOSAL ENGINEER [address] [place] [address] Palliative Medicine Provider Hospice & Palliative Medicine 06/28/21 Kylie Mosher, RN Specialty Airport Manager Hospice & Palliative Medicine 09/27/21 Press Writer Relationship Specialty Start Date End Date Bee Vail MD PCP - General Internal Medicine 05/07/16 Irene Han, HEAT READER.SEWAGE DISPOSAL ENGINEER [address] [place] [address] Palliative Medicine Provider Hospice & Palliative Medicine 06/28/21 Kylie Mosher, RN Specialty Airport Manager Hospice & Palliative Medicine 09/27/21 Ruperto Ledezma MD [address] [place] [address] [place] [address] Physician Hematology 02/08/23 Ellyn Keller, HEAT READER.SEWAGE DISPOSAL ENGINEER [address] [facility] [place] [address] Referring Nurse Practitioner 02/26/23 Ellyn Keller, HEAT READER.SEWAGE DISPOSAL ENGINEER [address] [place] [address] Referring Nurse Practitioner 03/06/23 Fabiana Johnson LSW Internet Retailer 03/08/23 Press Writer Relationship Specialty [place] [address] [place] [address] PCP - General Internal Medicine 05/07/16 [place] [address] [place] [address] Consulting Hematology/Oncology 01/28/12 02/07/23 [place] [address] [place] [address] Specialty Airport Manager Hematology/Oncology 11/09/19 05/17/22 [place] [address] [place] [address] Hematology/Oncology 03/30/21 02/07/23 Kristina Pete RN Specialty Airport Manager Hospice & Palliative Medicine 05/22/21 08/06/22 Irene Han, LORY.SEWAGE DISPOSAL ENGINEER [address] [place], [place] 3368931 Palliative Medicine Provider Hospice & Palliative Medicine 06/28/21 Press Writer Relationship Specialty [place] [address] [place] [address] PCP - General Internal Medicine 05/07/16 [place] [address] [facility] [place] [address] Consulting Hematology/Oncology 01/28/12 02/07/23 [place] [address] [place] [address] Specialty Airport Manager Hematology/Oncology 11/09/19 05/17/22 Press Writer Relationship Specialty Start Date End Date Bee Vail MD [address] [place] [address] [place] [address] PCP - General Internal Medicine 06/26/22 Bee Vail MD [address] [facility] [place] [address] PCP - [employer]et[employer] 10/19/21 Dr. Ledezma Referring Physician Oncology 08/08/23 Dr. Elliott Referring Physician Cardiology 08/08/23 Dr. Clemons Referring Physician Rheumatology 08/08/23 Dr. Carver Referring Physician Pulmonary Disease 08/08/23 Dr. Franco Referring Physician Otolaryngology 08/08/23 Emely Bonilla Referring Physician Palliative Medicine 08/08/23 Press Writer Relationship Specialty Start Date End Date Bee Vali MD PCP - General Internal Medicine 05/07/16 Irene Han, HEAT READER.SEWAGE DISPOSAL ENGINEER [address] [place] [address] Palliative Medicine Provider Hospice & Palliative Medicine 06/28/21 Kylie Mosher, RN Specialty Airport Manager Hospice & Palliative Medicine 09/27/21 Ruperto Ledezma MD [address] [place] [address] [place] [address] Physician Hematology 02/08/23 Ellyn Keller, HEAT READER.SEWAGE DISPOSAL ENGINEER [address] [facility] [place] [place] [address] Referring Nurse Practitioner 02/26/23 Ellyn Keller, HEAT READER.SEWAGE DISPOSAL ENGINEER [address] [facility] [place] [address] Referring Nurse Practitioner 03/06/23 Fabiana Johnson LSW Internet Retailer 03/08/23 Press Writer Relationship Specialty Start Date End Date Bee Vail MD PCP - General Internal Medicine 05/07/16 Irene Han, HEAT READER.SEWAGE DISPOSAL ENGINEER [address] [facility] [address] Palliative Medicine Provider Hospice & Palliative Medicine 06/28/21 Kylie Mosher, RN Specialty Airport Manager Hospice & Palliative Medicine 09/27/21 Ruperto Ledezma MD [address] [place] [address] [place] [address] Physician Hematology 02/08/23 Ellyn Keller, HEAT READER.SEWAGE DISPOSAL ENGINEER [address] [facility] [place] [address] Referring Nurse Practitioner 02/26/23 Ellyn Keller, HEAT READER.SEWAGE DISPOSAL ENGINEER [address] [place] [address] Referring Nurse Practitioner 03/06/23 Fabiana Johnson LSW Internet Retailer 03/08/23 Press Writer Relationship Specialty Start Date End Date Bee Vail MD [address] [facility] [place] [address] PCP - General Internal Medicine 06/26/22 Bee Vail MD [address] [place] [address] PCP - Aet[employer] 10/19/21 Dr. Ledezma Referring Physician Oncology 08/08/23 Dr. Elliott Referring Physician Cardiology 08/08/23 Dr. Clemons Referring Physician Rheumatology 08/08/23 Dr. Carver Referring Physician Pulmonary Disease 08/08/23 Dr. Franco Referring Physician Otolaryngology 08/08/23 Emely Bonilla Referring Physician Palliative Medicine 08/08/23 Press Writer Relationship Specialty Start Date End Date Bee Vail MD PCP - General Internal Medicine 05/07/16 Irene Han, HEAT READER.SEWAGE DISPOSAL ENGINEER [address] [place] [address] Palliative Medicine Provider Hospice & Palliative Medicine 06/28/21 Kylie Mosher, RN Specialty Airport Manager Hospice & Palliative Medicine 09/27/21 Ruperto Ledezma MD [address] [place] [address] [place] [address] Physician Hematology 02/08/23 Ellyn Keller, HEAT READER.SEWAGE DISPOSAL ENGINEER [address] [facility] [place] [address] Referring Nurse Practitioner 02/26/23 Ellyn Keller, HEAT READER.SEWAGE DISPOSAL ENGINEER [address] [facility] [place] [address] Referring Nurse Practitioner 03/06/23 Fabiana Johnson LSW Internet Retailer 03/08/23 Press Writer Relationship Specialty Start Date End Date Bee Vail MD [address] [place] [address] PCP - General Internal Medicine 06/26/22 Bee Vail MD [address] [facility] [place] [address] PCP - Aet[employer] 10/19/21 Dr. Ledezma Referring Physician Oncology 08/08/23 Dr. Elliott Referring Physician Cardiology 08/08/23 Dr. Clemons Referring Physician Rheumatology 08/08/23 Dr. Carver Referring Physician Pulmonary Disease 08/08/23 Dr. Franco Referring Physician Otolaryngology 08/08/23 Emely Bonilla Referring Physician Palliative Medicine 08/08/23 Press Writer Relationship Specialty Start Date End Date Bee Vail MD PCP - General Internal Medicine 05/07/16 Irene Han, HEAT READER.SEWAGE DISPOSAL ENGINEER [address] [place] [address] Palliative Medicine Provider Hospice & Palliative Medicine 06/28/21 Kylie Mosher, RN Specialty Airport Manager Hospice & Palliative Medicine 09/27/21 Ruperto Ledezma MD [address] [place] [address] [place] [address] Physician Hematology 02/08/23 Ellyn Keller, HEAT READER.SEWAGE DISPOSAL ENGINEER [address] [facility] [place] [address] Referring Nurse Practitioner 02/26/23 Ellyn Keller, HEAT READER.SEWAGE DISPOSAL ENGINEER [address] [facility] [place] [place] [address] Referring Nurse Practitioner 03/06/23 Fabiana Johnson LSW Internet Retailer 03/08/23 Press Writer Relationship Specialty Start Date End Date Bee Vail MD PCP - General Internal Medicine 05/07/16 Irene Han, HEAT READER.SEWAGE DISPOSAL ENGINEER [address] [place] [address] Palliative Medicine Provider Hospice & Palliative Medicine 06/28/21 Kylie Mosher RN Specialty Airport Manager Hospice & Palliative Medicine 09/27/21 Ruperto Ledezma MD [address] [place] [address] [place] [address] Physician Hematology 02/08/23 Ellyn Keller, HEAT READER.SEWAGE DISPOSAL ENGINEER [address] [facility] [place] [address] Referring Nurse Practitioner 02/26/23 Ellyn Keller, HEAT READER.SEWAGE DISPOSAL ENGINEER [address] [facility] [place] [place] [address] Referring Nurse Practitioner 03/06/23 Fabiana Johnson LSW Internet Retailer 03/08/23 Press Writer Relationship Specialty Start Date End Date Bee Vail MD [address] [facility] [place] [address] PCP - General Internal Medicine 06/26/22 Bee Vail MD [address] [facility] [place] [address] PCP - Aetna 10/19/21 Dr. Ledezma Referring Physician Oncology 08/08/23 Dr. Elliott Referring Physician Cardiology 08/08/23 Dr. Clemons Referring Physician Rheumatology 08/08/23 Dr. Carver Referring Physician Pulmonary Disease 08/08/23 Dr. Franco Referring Physician Otolaryngology 08/08/23 Emely Bonilla Referring Physician Palliative Medicine 08/08/23 Press Writer Relationship Specialty Start Date End Date Bee Vail MD [address] [facility] [place] [address] PCP - General Internal Medicine 06/26/22 Bee Vail MD [address] [facility] [place] [address] PCP - Aetna 10/19/21 Dr. Ledezma Referring Physician Oncology 08/08/23 Dr. Elliott Referring Physician Cardiology 08/08/23 Dr. Clemons Referring Physician Rheumatology 08/08/23 Dr. Carver Referring Physician Pulmonary Disease 08/08/23 Dr. Franco Referring Physician Otolaryngology 08/08/23 Emely Bonilla Referring Physician Palliative Medicine 08/08/23 Press Writer Relationship Specialty Start Date End Date Bee Vail MD [address] [place] [address] PCP - General Internal Medicine 06/26/22 Bee Vail MD [facility] [address] PCP - Aetna 10/19/21 Dr. Ledezma Referring Physician Oncology 08/08/23 Dr. Elliott Referring Physician Cardiology 08/08/23 Dr. Clemons Referring Physician Rheumatology 08/08/23 Dr. Carver Referring Physician Pulmonary Disease 08/08/23 Dr. Franco Referring Physician Otolaryngology 08/08/23 Emely Bonilla Referring Physician Palliative Medicine 08/08/23 Press Writer Relationship Specialty Start Date End Date Bee Vail MD PCP - General Internal Medicine 05/07/16 Irene Han, HEAT READER.SEWAGE DISPOSAL ENGINEER [address] [place] [address] Palliative Medicine Provider Hospice & Palliative Medicine 06/28/21 Kylie Mosher, RN Specialty Airport Manager Hospice & Palliative Medicine 09/27/21 Ruperto Ledezma MD [address] [place] [address] [place] [address] Physician Hematology 02/08/23 Ellyn Keller, HEAT READER.SEWAGE DISPOSAL ENGINEER [address] [place] [address] Referring Nurse Practitioner 02/26/23 Ellyn Keller APRN.SEWAGE DISPOSAL ENGINEER [address] [facility] [place] [address] Referring Nurse Practitioner 03/06/23 Fabiana Johnson LSW Internet Retailer 03/08/23 Press Writer Relationship Specialty Start Date End Date Bee Vail MD [address] [facility] [place] [address] PCP - General Internal Medicine 06/26/22 Bee Vail MD [address] [facility] [place] [address] PCP - Aetna 10/19/21 Dr. Ledezma Referring Physician Oncology 08/08/23 Dr. Elliott Referring Physician Cardiology 08/08/23 Dr. Clemons Referring Physician Rheumatology 08/08/23 Dr. Carver Referring Physician Pulmonary Disease 08/08/23 Dr. Franco Referring Physician Otolaryngology 08/08/23 Emely Bonilla Referring Physician Palliative Medicine 08/08/23 Press Writer Relationship Specialty Start Date End Date Bee Vail MD [address] [facility] [place] [address] PCP - General Internal Medicine 06/26/22 Bee Vail MD [address] [facility] [place] [address] PCP - Aetna 10/19/21 Dr. Ledezma Referring Physician Oncology 08/08/23 Dr. Elliott Referring Physician Cardiology 08/08/23 Dr. Clemons Referring Physician Rheumatology 08/08/23 Dr. Carver Referring Physician Pulmonary Disease 08/08/23 Dr. Franco Referring Physician Otolaryngology 08/08/23 Emely Bonilla Referring Physician Palliative Medicine 08/08/23 Press Writer Relationship Specialty Start Date End Date Bee Vail MD PCP - General Internal Medicine 05/07/16 Irene Han, HEAT READER.SEWAGE DISPOSAL ENGINEER [address] [place] [address] Palliative Medicine Provider Hospice & Palliative Medicine 06/28/21 Kylie Mosher, RN Specialty Airport Manager Hospice & Palliative Medicine 09/27/21 Ruperto Ledezma MD [address] [place] [address] [place] [address] Physician Hematology 02/08/23 Ellyn Keller, HEAT READER.SEWAGE DISPOSAL ENGINEER [address] [place] [address] [place] [address] Referring Nurse Practitioner 02/26/23 Ellyn Keller, HEAT READER.SEWAGE DISPOSAL ENGINEER [address] [facility] [place] [address] Referring Nurse Practitioner 03/06/23 Fabiana Johnson LSW Internet Retailer 03/08/23 Sheila Lin, HEAT READER.SEWAGE DISPOSAL ENGINEER [address] [facility] [place] [address] Referring Internal Medicine 12/03/23 Press Writer Relationship Specialty Start Date End Date Bee Vail MD PCP - General Internal Medicine 05/07/16 Irene Han, HEAT READER.SEWAGE DISPOSAL ENGINEER [address] [place] [address] Palliative Medicine Provider Hospice & Palliative Medicine 06/28/21 Kylie Mosher, RN Specialty Airport Manager Hospice & Palliative Medicine 09/27/21 Ruperto Ledezma MD [address] [place] [address] [place] [address] Physician Hematology 02/08/23 Ellyn Keller, HEAT READER.SEWAGE DISPOSAL ENGINEER [address] [facility] [place] [address] Referring Nurse Practitioner 02/26/23 Ellyn Keller, HEAT READER.SEWAGE DISPOSAL ENGINEER [address] [facility] [place] [address] Referring Nurse Practitioner 03/06/23 Fabiana Johnson LSW Internet Retailer 03/08/23 Sheila Lin, HEAT READER.SEWAGE DISPOSAL ENGINEER [address] [facility] [place] [address] Referring Internal Medicine 12/03/23 Press Writer Relationship Specialty Start Date End Date Bee Vail MD PCP - General Internal Medicine 05/07/16 Irene Han, HEAT READER.SEWAGE DISPOSAL ENGINEER [address] [place] [address] Palliative Medicine Provider Hospice & Palliative Medicine 06/28/21 Kylie Mosher, RN Specialty Airport Manager Hospice & Palliative Medicine 09/27/21 Ruperto Ledezma MD [address] [place] [address] [place] [address] Physician Hematology 02/08/23 Ellyn Keller, HEAT READER.SEWAGE DISPOSAL ENGINEER [address] [facility] [place] [address] Referring Nurse Practitioner 02/26/23 Ellyn Keller, HEAT READER.SEWAGE DISPOSAL ENGINEER [address] [place] [address] [place] [address] Referring Nurse Practitioner 03/06/23 Fabiana Johnson, BROADCAST JOURNALIST Internet Retailer 03/08/23 Sheila Lin, HEAT READER.SEWAGE DISPOSAL ENGINEER [address] [place] [address] [place] [address] Referring Internal Medicine 12/03/23 Press Writer Relationship Specialty Start Date End Date Bee Vail MD PCP - General Internal Medicine 05/07/16 Irene Han, HEAT READER.SEWAGE DISPOSAL ENGINEER [address] [place] [address] Palliative Medicine Provider Hospice & Palliative Medicine 06/28/21 Kylie Mosher, RN Specialty Airport Manager Hospice & Palliative Medicine 09/27/21 Ruperto Ledezma MD [address] [place] [address] [place] [address] Physician Hematology 02/08/23 Ellyn Keller, HEAT READER.SEWAGE DISPOSAL ENGINEER [address] [place] [address] [place] [address] Referring Nurse Practitioner 02/26/23 Ellyn Keller, HEAT READER.SEWAGE DISPOSAL ENGINEER [address] [facility] [place] [address] Referring Nurse Practitioner 03/06/23 Fabiana Johnson, BROADCAST JOURNALIST Internet Retailer 03/08/23 Sheila Lin, HEAT READER.SEWAGE DISPOSAL ENGINEER [address] [place] [address] [place] [address] Referring Internal Medicine 12/03/23 Press Writer Relationship Specialty Start Date End Date Bee Vail MD PCP - General Internal Medicine 05/07/16 Irene Han, HEAT READER.SEWAGE DISPOSAL ENGINEER [address] [place] [address] Palliative Medicine Provider Hospice & Palliative Medicine 06/28/21 Kylie Mosher, RN Specialty Airport Manager Hospice & Palliative Medicine 09/27/21 Ruperto Ledezma MD [address] [place] [address] [place] [address] Physician Hematology 02/08/23 Ellyn Keller, HEAT READER.SEWAGE DISPOSAL ENGINEER [address] [facility] [place] [address] Referring Nurse Practitioner 02/26/23 Ellyn Keller, HEAT READER.SEWAGE DISPOSAL ENGINEER [address] [facility] [place] [address] Referring Nurse Practitioner 03/06/23 Fabiana Johnson, BROADCAST JOURNALIST Internet Retailer 03/08/23 Sheila Lin, HEAT READER.SEWAGE DISPOSAL ENGINEER [address] [facility] [place] [address] Referring Internal Medicine 12/03/23 Press Writer Relationship Specialty Start Date End Date Bee Vail MD PCP - General Internal Medicine 05/07/16 Irene Han, HEAT READER.SEWAGE DISPOSAL ENGINEER [address] [place] [address] Palliative Medicine Provider Hospice & Palliative Medicine 06/28/21 Kylie Mosher, RN Specialty Airport Manager Hospice & Palliative Medicine 09/27/21 Ruperto Ledezma MD [address] [place] [address] [place] [address] Physician Hematology 02/08/23 Ellyn Keller, HEAT READER.SEWAGE DISPOSAL ENGINEER [address] [place] [address] [place] [address] Referring Nurse Practitioner 02/26/23 Ellyn Keller, HEAT READER.SEWAGE DISPOSAL ENGINEER [address] [facility] [place] [address] Referring Nurse Practitioner 03/06/23 Fabiana Johnson LSW Internet Retailer 03/08/23 Sheila Lin, HEAT READER.SEWAGE DISPOSAL ENGINEER [address] [place] [address] [place] [address] Referring Internal Medicine 12/03/23 Press Writer Relationship Specialty Start Date End Date Bee Vail MD [address] [place] [address] [place] [address] PCP - General Internal Medicine 06/26/22 Bee Vail MD [address] [facility] [place] [address] PCP - [employer] 10/19/21 Dr. Ledezma Referring Physician Oncology 08/08/23 Dr. Elliott Referring Physician Cardiology 08/08/23 Dr. Clemons Referring Physician Rheumatology 08/08/23 Dr. Carver Referring Physician Pulmonary Disease 08/08/23 Dr. Franco Referring Physician Otolaryngology 08/08/23 Emely Bonilla Referring Physician Palliative Medicine 08/08/23 Press Writer Relationship Specialty Start Date End Date Bee Vail MD PCP - General Internal Medicine 05/07/16 Irene Han, HEAT READER.SEWAGE DISPOSAL ENGINEER [address] [place] [address] Palliative Medicine Provider Hospice & Palliative Medicine 06/28/21 Kylie Mosher, RN Specialty Airport Manager Hospice & Palliative Medicine 09/27/21 Ruperto Ledezma MD [address] [place] [address] [place] [address] Physician Hematology 02/08/23 Ellyn Keller, HEAT READER.SEWAGE DISPOSAL ENGINEER [address] [facility] [place] [address] Referring Nurse Practitioner 02/26/23 Ellyn Keller, HEAT READER.SEWAGE DISPOSAL ENGINEER [address] [facility] [place] [address] Referring Nurse Practitioner 03/06/23 Fabiana Johnson LSW Internet Retailer 03/08/23 Sheila Lni, HEAT READER.SEWAGE DISPOSAL ENGINEER [address] [facility] [place] [address] Referring Internal Medicine 12/03/23 Press Writer Relationship Specialty Start Date End Date Bee Vail MD PCP - General Internal Medicine 05/07/16 Irene Han, HEAT READER.SEWAGE DISPOSAL ENGINEER [address] [place] [address] Palliative Medicine Provider Hospice & Palliative Medicine 06/28/21 Kylie Mosher, RN Specialty Airport Manager Hospice & Palliative Medicine 09/27/21 Ruperto Ledezma MD [address] [place] [address] [place] [address] Physician Hematology 02/08/23 Ellyn Keller, HEAT READER.SEWAGE DISPOSAL ENGINEER [address] [facility] [place] [address] Referring Nurse Practitioner 02/26/23 Ellyn Keller, HEAT READER.SEWAGE DISPOSAL ENGINEER [address] [facility] [place] [address] Referring Nurse Practitioner 03/06/23 Fabiana Johnson LSW Internet Retailer 03/08/23 Sheila Lin, HEAT READER.SEWAGE DISPOSAL ENGINEER [address] [facility] [place] [address] Referring Internal Medicine 12/03/23 Press Writer Relationship Specialty Start Date End Date Bee Vail MD PCP - General Internal Medicine 05/07/16 Irene Han, HEAT READER.SEWAGE DISPOSAL ENGINEER [address] [place] [address] Palliative Medicine Provider Hospice & Palliative Medicine 06/28/21 Kylie Mosher, RN Specialty Airport Manager Hospice & Palliative Medicine 09/27/21 Ruperto Ledezma MD [address] [place] [address] [place] [address] Physician Hematology 02/08/23 Ellyn Keller, HEAT READER.SEWAGE DISPOSAL ENGINEER [address] [facility] [place] [address] Referring Nurse Practitioner 02/26/23 Ellyn Keller, HEAT READER.SEWAGE DISPOSAL ENGINEER [address] [facility] [place] [address] Referring Nurse Practitioner 03/06/23 Fabiana Johnson LSW Internet Retailer 03/08/23 Sheila Lin, HEAT READER.SEWAGE DISPOSAL ENGINEER [address] [facility] [place] [address] Referring Internal Medicine 12/03/23 Press Writer Relationship Specialty Start Date End Date Bee Vail MD PCP - General Internal Medicine 05/07/16 Irene Han, HEAT READER.SEWAGE DISPOSAL ENGINEER [address] [place] [address] Palliative Medicine Provider Hospice & Palliative Medicine 06/28/21 Kylie Mosher, RN Specialty Airport Manager Hospice & Palliative Medicine 09/27/21 Ruperto Ledezma MD [address] [place] [address] [place] [address] Physician Hematology 02/08/23 Ellyn Keller, HEAT READER.SEWAGE DISPOSAL ENGINEER [address] [facility] [place] [address] Referring Nurse Practitioner 02/26/23 Ellyn Keller, HEAT READER.SEWAGE DISPOSAL ENGINEER [address] [facility] [place] [address] Referring Nurse Practitioner 03/06/23 Fabiana Johnson LSW Internet Retailer 03/08/23 Sheila Lin, HEAT READER.SEWAGE DISPOSAL ENGINEER [address] [place] [address] [place] [address] Referring Internal Medicine 12/03/23 Press Writer Relationship Specialty Start Date End Date Bee Vail MD PCP - General Internal Medicine 05/07/16 Irene Han, HEAT READER.SEWAGE DISPOSAL ENGINEER [address] [place] [address] Palliative Medicine Provider Hospice & Palliative Medicine 06/28/21 Kylie Mosher, RN Specialty Airport Manager Hospice & Palliative Medicine 09/27/21 Ruperto Ledezma MD [address] [place] [address] [place] [address] Physician Hematology 02/08/23 Ellyn Keller, HEAT READER.SEWAGE DISPOSAL ENGINEER [address] [facility] [place] [address] Referring Nurse Practitioner 02/26/23 Ellyn Keller, HEAT READER.SEWAGE DISPOSAL ENGINEER [address] [facility] [place] [address] Referring Nurse Practitioner 03/06/23 Fabiana Johnson LSW Internet Retailer 03/08/23 Sheila Lin, HEAT READER.SEWAGE DISPOSAL ENGINEER [address] [facility] [place] [address] Referring Internal Medicine 12/03/23 Press Writer Relationship Specialty Start Date End Date Bee Vail MD PCP - General Internal Medicine 05/07/16 Irene Han, HEAT READER.SEWAGE DISPOSAL ENGINEER [address] [place] [address] Palliative Medicine Provider Hospice & Palliative Medicine 06/28/21 Kylie Mosher, RN Specialty Airport Manager Hospice & Palliative Medicine 09/27/21 Ruperto Ledezma MD [address] [place] [address] [place] [address] Physician Hematology 02/08/23 Ellyn Keller, HEAT READER.SEWAGE DISPOSAL ENGINEER [address] [facility] [place] [address] Referring Nurse Practitioner 02/26/23 Ellyn Keller, HEAT READER.SEWAGE DISPOSAL ENGINEER [address] [facility] [place] [address] Referring Nurse Practitioner 03/06/23 Fabiana Johnson LSW Internet Retailer 03/08/23 Sheila Lin, HEAT READER.SEWAGE DISPOSAL ENGINEER [address] [facility] [place] [address] Referring Internal Medicine 12/03/23 Press Writer Relationship Specialty Start Date End Date Bee Vail MD PCP - General Internal Medicine 05/07/16 Irene Han, HEAT READER.SEWAGE DISPOSAL ENGINEER [address] [place] [address], [place] [address] Palliative Medicine Provider Hospice & Palliative Medicine 06/28/21 Kylie Mosher, RN Specialty Airport Manager Hospice & Palliative Medicine 09/27/21 Ruperto Ledezma MD [address] [place] [address] [place] [address] Physician Hematology 02/08/23 Ellyn Keller, HEAT READER.SEWAGE DISPOSAL ENGINEER [address] [facility] [place] [address] Referring Nurse Practitioner 02/26/23 Ellyn Keller, HEAT READER.SEWAGE DISPOSAL ENGINEER [address] [facility] [place] [address] Referring Nurse Practitioner 03/06/23 Fabiana Johnson LSW Internet Retailer 03/08/23 Sheila Lin, HEAT READER.SEWAGE DISPOSAL ENGINEER [address] [facility] [place] [address] Referring Internal Medicine 12/03/23 Press Writer Relationship Specialty Start Date End Date Bee Vail MD PCP - General Internal Medicine 05/07/16 Irene Han, HEAT READER.SEWAGE DISPOSAL ENGINEER [address] [place] [address], [place] [address] Palliative Medicine Provider Hospice & Palliative Medicine 06/28/21 Kylie Mosher, RN Specialty Airport Manager Hospice & Palliative Medicine 09/27/21 Ruperto Ledezma MD [address] [place] [address] [place] [address] Physician Hematology 02/08/23 Ellyn Keller, HEAT READER.SEWAGE DISPOSAL ENGINEER [address] [facility] [place] [address] Referring Nurse Practitioner 02/26/23 Ellyn Keller, HEAT READER.SEWAGE DISPOSAL ENGINEER [address] [facility] [place] [address] Referring Nurse Practitioner 03/06/23 Fabiana Johnson LSW Internet Retailer 03/08/23 Sheila Lin, HEAT READER.SEWAGE DISPOSAL ENGINEER [address] [facility] [place] [address] Referring Internal Medicine 12/03/23 Press Writer Relationship Specialty Start Date End Date Bee Vail MD PCP - General Internal Medicine 05/07/16 Irene Han, HEAT READER.SEWAGE DISPOSAL ENGINEER [address] [place] [address], [place] [address] Palliative Medicine Provider Hospice & Palliative Medicine 06/28/21 Kylie Mosher, RN Specialty Airport Manager Hospice & Palliative Medicine 09/27/21 Ruperto Ledezma MD [address] [place] [address] [place] [address] Physician Hematology 02/08/23 Ellyn Keller, HEAT READER.SEWAGE DISPOSAL ENGINEER [address] [facility] [place] [address] Referring Nurse Practitioner 02/26/23 Ellyn Keller, HEAT READER.SEWAGE DISPOSAL ENGINEER [address] [facility] [place] [address] Referring Nurse Practitioner 03/06/23 Fabiana Johnson LSW Internet Retailer 03/08/23 Sheila Lin, HEAT READER.SEWAGE DISPOSAL ENGINEER [address] [facility] [place] [address] Referring Internal Medicine 12/03/23 Press Writer Relationship Specialty Start Date End Date Bee Vail MD [address] [place] [address] PCP - General Internal Medicine 06/26/22 Bee Vail MD [address] [place] [address] PCP - [employer] 10/19/21 Dr. Ledezma Referring Physician Oncology 08/08/23 Dr. Elliott Referring Physician Cardiology 08/08/23 Dr. Clemons Referring Physician Rheumatology 08/08/23 Dr. Carver Referring Physician Pulmonary Disease 08/08/23 Dr. Franco Referring Physician Otolaryngology 08/08/23 Emely Bonilla Referring Physician Palliative Medicine 08/08/23 Press Writer Relationship Specialty Start Date End Date Bee Vail MD PCP - General Internal Medicine 05/07/16 Irene Han, HEAT READER.SEWAGE DISPOSAL ENGINEER [address] [place] [address] Palliative Medicine Provider Hospice & Palliative Medicine 06/28/21 Kylie Mosher, RN Specialty Airport Manager Hospice & Palliative Medicine 09/27/21 Ruperto Ledezma MD [address] [place] [address] [place] [address] Physician Hematology 02/08/23 Ellyn Keller, HEAT READER.SEWAGE DISPOSAL ENGINEER [address] [facility] [place] [address] Referring Nurse Practitioner 02/26/23 Ellyn Keller, HEAT READER.SEWAGE DISPOSAL ENGINEER [address] [facility] [place] [address] Referring Nurse Practitioner 03/06/23 Fabiana Johnson LSW Internet Retailer 03/08/23 Sheila Lin, HEAT READER.SEWAGE DISPOSAL ENGINEER [address] [facility] [place] [address] Referring Internal Medicine 12/03/23 Press Writer Relationship Specialty Start Date End Date Bee Vail MD PCP - General Internal Medicine 05/07/16 Irene Han, HEAT READER.SEWAGE DISPOSAL ENGINEER [address] [place] [address] Palliative Medicine Provider Hospice & Palliative Medicine 06/28/21 Kylie Mosher, RN Specialty Airport Manager Hospice & Palliative Medicine 09/27/21 Ruperto Ledezma MD [address] [place] [address] [place] [address] Physician Hematology 02/08/23 Ellyn Keller, HEAT READER.SEWAGE DISPOSAL ENGINEER [address] [facility] [place] [address] Referring Nurse Practitioner 02/26/23 Ellyn Keller, HEAT READER.SEWAGE DISPOSAL ENGINEER [address] [facility] [place] [address] Referring Nurse Practitioner 03/06/23 Fabiana Johnson LSW Internet Retailer 03/08/23 Sheila Lin, HEAT READER.SEWAGE DISPOSAL ENGINEER [address] [facility] [place] [address] Referring Internal Medicine 12/03/23 Press Writer Relationship Specialty Start Date End Date Bee Vail MD PCP - General Internal Medicine 05/07/16 Irene Han, HEAT READER.SEWAGE DISPOSAL ENGINEER [address] [place] [address] Palliative Medicine Provider Hospice & Palliative Medicine 06/28/21 Kylie Mosher, RN Specialty Airport Manager Hospice & Palliative Medicine 09/27/21 [address]to [address] [facility] [place] [address] Physician Hematology 02/08/23 Ellyn Keller, HEAT READER.SEWAGE DISPOSAL ENGINEER [address] [facility] [place] [address] Referring Nurse Practitioner 02/26/23 Ellyn Keller, HEAT READER.SEWAGE DISPOSAL ENGINEER [address] [facility] [place] [address] Referring Nurse Practitioner 03/06/23 Fabiana Johnson LSW Internet Retailer 03/08/23 Sheila Lin, HEAT READER.SEWAGE DISPOSAL ENGINEER [address] [facility] [place] [address] Referring Internal Medicine 12/03/23 Press Writer Relationship Specialty Start Date End Date Bee Vail MD [address] [place] [address] [place] [address] PCP - General Internal Medicine 06/26/22 Bee Vail MD [address] [place] [address] [place] [address] PCP - [employer] 10/19/21 Dr. Ledezma Referring Physician Oncology 08/08/23 Dr. Elliott Referring Physician Cardiology 08/08/23 Dr. Clemons Referring Physician Rheumatology 08/08/23 Dr. Carver Referring Physician Pulmonary Disease 08/08/23 Dr. Franco Referring Physician Otolaryngology 08/08/23 Emely Bonilla Referring Physician Palliative Medicine 08/08/23 Press Writer Relationship Specialty Start Date End Date Bee Vail MD [address] [facility] [place] [address] PCP - General Internal Medicine 06/26/22 Bee Vail MD [address] [facility] [place] [address] PCP - [employer] 10/19/21 Dr. Ledezma Referring Physician Oncology 08/08/23 Dr. Elliott Referring Physician Cardiology 08/08/23 Dr. Clemons Referring Physician Rheumatology 08/08/23 Dr. Carver Referring Physician Pulmonary Disease 08/08/23 Dr. Franco Referring Physician Otolaryngology 08/08/23 Emely Bonilla Referring Physician Palliative Medicine 08/08/23 Press Writer Relationship Specialty Start Date End Date Bee Vail MD [address] [facility] [place] [address] PCP - General Internal Medicine 06/26/22 Bee Vail MD [address] [facility] [place] [address] PCP - [employer] 10/19/21 Dr. Ledezma Referring Physician Oncology 08/08/23 Dr. Elliott Referring Physician Cardiology 08/08/23 Dr. Clemons Referring Physician Rheumatology 08/08/23 Dr. Carver Referring Physician Pulmonary Disease 08/08/23 Dr. Franco Referring Physician Otolaryngology 08/08/23 Emely Bonilla Referring Physician Palliative Medicine 08/08/23 Press Writer Relationship Specialty Start Date End Date Bee Vail MD PCP - General Internal Medicine 05/07/16 Irene Han, HEAT READER.SEWAGE DISPOSAL ENGINEER [address] [place] [address] Palliative Medicine Provider Hospice & Palliative Medicine 06/28/21 Kylie Mosher, RN Specialty Airport Manager Hospice & Palliative Medicine 09/27/21 Ruperto Ledezma MD [address] [place] [address] [place] [address] Physician Hematology 02/08/23 Ellyn Keller, HEAT READER.SEWAGE DISPOSAL ENGINEER [address] [facility] [place] [address] Referring Nurse Practitioner 02/26/23 Ellyn Keller, HEAT READER.SEWAGE DISPOSAL ENGINEER [address] [facility] [place] [address] Referring Nurse Practitioner 03/06/23 Fabiana Johnson LSW Internet Retailer 03/08/23 Sheila Lin, HEAT READER.SEWAGE DISPOSAL ENGINEER [address] [facility] [place] [address] Referring Internal Medicine 12/03/23 Press Writer Relationship Specialty Start Date End Date Bee Vail MD [address] [facility] [place] [address] PCP - General Internal Medicine 06/26/22 Bee Vail MD [address] [facility] [place] [address] PCP - [employer] 10/19/21 Dr. Ledezma Referring Physician Oncology 08/08/23 Dr. Elliott Referring Physician Cardiology 08/08/23 Dr. Clemons Referring Physician Rheumatology 08/08/23 Dr. Carver Referring Physician Pulmonary Disease 08/08/23 Dr. Franco Referring Physician Otolaryngology 08/08/23 Emely Bonilla Referring Physician Palliative Medicine 08/08/23 Press Writer Relationship Specialty Start Date End Date Bee Vail MD PCP - General Internal Medicine 05/07/16 Irene Han, HEAT READER.SEWAGE DISPOSAL ENGINEER [address] [place] [address] Palliative Medicine Provider Hospice & Palliative Medicine 06/28/21 Kylie Mosher, RN Specialty Airport Manager Hospice & Palliative Medicine 09/27/21 Ruperto Ledezma MD [address] [place] [address] [place] [address] Physician Hematology 02/08/23 Ellyn Keller, HEAT READER.SEWAGE DISPOSAL ENGINEER [address] [facility] [place] [address] Referring Nurse Practitioner 02/26/23 Ellyn Keller, HEAT READER.SEWAGE DISPOSAL ENGINEER [address] [facility] [place] [address] Referring Nurse Practitioner 03/06/23 Fabiana Johnson LSW Internet Retailer 03/08/23 Sheila Lin, HEAT READER.SEWAGE DISPOSAL ENGINEER [address] [facility] [place] [address] Referring Internal Medicine 12/03/23 Press Writer Relationship Specialty Start Date End Date Bee Vail MD PCP - General Internal Medicine 05/07/16 Irene Han, HEAT READER.SEWAGE DISPOSAL ENGINEER [address] [place] [address] Palliative Medicine Provider Hospice & Palliative Medicine 06/28/21 Kylie Mosher, RN Specialty Airport Manager Hospice & Palliative Medicine 09/27/21 Ruperto Ledezma MD [address] [place] [address] [place] [address] Physician Hematology 02/08/23 Ellyn Keller, HEAT READER.SEWAGE DISPOSAL ENGINEER [address] [facility] [place] [address] Referring Nurse Practitioner 02/26/23 Ellyn Keller, HEAT READER.SEWAGE DISPOSAL ENGINEER [address] [place] [address] [place] [address] Referring Nurse Practitioner 03/06/23 Fabiana Jonhson, BROADCAST JOURNALIST Internet Retailer 03/08/23 Sheila Lin, HEAT READER.SEWAGE DISPOSAL ENGINEER [address] [place] [address] [place] [address] Referring Internal Medicine 12/03/23 Press Writer Relationship Specialty Start Date End Date Bee Vail MD PCP - General Internal Medicine 05/07/16 Irene Han, HEAT READER.SEWAGE DISPOSAL ENGINEER [address] [place] [address] Palliative Medicine Provider Hospice & Palliative Medicine 06/28/21 Kylie Mosher, RN Specialty Airport Manager Hospice & Palliative Medicine 09/27/21 Ruperto Ledezma MD [address] [place] [address] [place] [address] Physician Hematology 02/08/23 Ellyn Keller, HEAT READER.SEWAGE DISPOSAL ENGINEER [address] [place] [address] [place] [address] Referring Nurse Practitioner 02/26/23 Ellyn Keller, HEAT READER.SEWAGE DISPOSAL ENGINEER [address] [place] [address] [place] [address] Referring Nurse Practitioner 03/06/23 Fabiana Johnson, TATO Internet Retailer 03/08/23 Sheila Lin, HEAT READER.SEWAGE DISPOSAL ENGINEER [address] [place] [address] [place] [address] Referring Internal Medicine 12/03/23 Press Writer Relationship Specialty Start Date End Date Bee Vail MD [address] [facility] [place] [address] PCP - General Internal Medicine 06/26/22 Bee Vail MD [address] [place] [address] [place] [address] PCP - [employer] 10/19/21 Dr. Ledezma Referring Physician Oncology 08/08/23 Dr. Elliott Referring Physician Cardiology 08/08/23 Dr. Clemons Referring Physician Rheumatology 08/08/23 Dr. Carver Referring Physician Pulmonary Disease 08/08/23 Dr. Franco Referring Physician Otolaryngology 08/08/23 Emely Bonilla Referring Physician Palliative Medicine 08/08/23 Press Writer Relationship Specialty Start Date End Date Bee Vail MD PCP - General Internal Medicine 05/07/16 Irene Han, HEAT READER.SEWAGE DISPOSAL ENGINEER [address] [place] [address] Palliative Medicine Provider Hospice & Palliative Medicine 06/28/21 Kylie Mosher, RN Specialty Airport Manager Hospice & Palliative Medicine 09/27/21 Ruperto Ledezma MD [address] [place] [address] [place] [address] Physician Hematology 02/08/23 Ellyn Keller, HEAT READER.SEWAGE DISPOSAL ENGINEER [address] [facility] [place] [address] Referring Nurse Practitioner 02/26/23 Ellyn Keller, HEAT READER.SEWAGE DISPOSAL ENGINEER [address] [facility] [place] [address] Referring Nurse Practitioner 03/06/23 Fabiana Johnson LSW Internet Retailer 03/08/23 Sheila Lin, HEAT READER.SEWAGE DISPOSAL ENGINEER [address] [facility] [place] [address] Referring Internal Medicine 12/03/23 Press Writer Relationship Specialty Start Date End Date Bee Vail MD PCP - General Internal Medicine 05/07/16 Irene Han, HEAT READER.SEWAGE DISPOSAL ENGINEER [address] [place] [address] Palliative Medicine Provider Hospice & Palliative Medicine 06/28/21 Kylie Mosher, RN Specialty Airport Manager Hospice & Palliative Medicine 09/27/21 Ruperto Ledezma MD [address] [place] [address] [place] [address] Physician Hematology 02/08/23 Ellyn Keller, HEAT READER.SEWAGE DISPOSAL ENGINEER [address] [facility] [place] [address] Referring Nurse Practitioner 02/26/23 Ellyn Keller, HEAT READER.SEWAGE DISPOSAL ENGINEER [address] [facility] [place] [address] Referring Nurse Practitioner 03/06/23 Fabiana Johnson LSW Internet Retailer 03/08/23 Sheila Lin, HEAT READER.SEWAGE DISPOSAL ENGINEER [address] [facility] [place] [address] Referring Internal Medicine 12/03/23 Press Writer Relationship Specialty Start Date End Date Bee Vail MD PCP - General Internal Medicine 05/07/16 Irene Han, HEAT READER.SEWAGE DISPOSAL ENGINEER [address] [place] [address] Palliative Medicine Provider Hospice & Palliative Medicine 06/28/21 Kylie Mosher, RN Specialty Airport Manager Hospice & Palliative Medicine 09/27/21 Ruperto Ledezma MD [address] [place] [address] [place] [address] Physician Hematology 02/08/23 Ellyn Keller, HEAT READER.SEWAGE DISPOSAL ENGINEER [address] [facility] [place] [address] Referring Nurse Practitioner 02/26/23 Ellyn Keller, HEAT READER.SEWAGE DISPOSAL ENGINEER [address] [facility] [place] [address] Referring Nurse Practitioner 03/06/23 Fabiana Johnson LSW Internet Retailer 03/08/23 Sheila Lin, HEAT READER.SEWAGE DISPOSAL ENGINEER [address] [facility] [place] [address] Referring Internal Medicine 12/03/23 Press Writer Relationship Specialty Start Date End Date Bee Vail MD PCP - General Internal Medicine 05/07/16 Irene Han, HEAT READER.SEWAGE DISPOSAL ENGINEER [address] [place] [address] Palliative Medicine Provider Hospice & Palliative Medicine 06/28/21 Kylie Mosher, RN Specialty Airport Manager Hospice & Palliative Medicine 09/27/21 Ruperto Ledezma MD [address] [place] [address] [place] [address] Physician Hematology 02/08/23 Ellyn Keller, HEAT READER.SEWAGE DISPOSAL ENGINEER [address] [facility] [place] [place] [address] Referring Nurse Practitioner 02/26/23 Ellny Keller, HEAT READER.SEWAGE DISPOSAL ENGINEER [address] [facility] [place] [place] [address] Referring Nurse Practitioner 03/06/23 Fabiana Johnson LSW Internet Retailer 03/08/23 Sheila Lin, HEAT READER.SEWAGE DISPOSAL ENGINEER [address] [facility] [place] [address] Referring Internal Medicine 12/03/23 Press Writer Relationship Specialty Start Date End Date Bee Vail MD [address] [facility] [place] [address] PCP - General Internal Medicine 06/26/22 Bee Vail MD [address] [facility] [place] [address] PCP - [employer] 10/19/21 Dr. Ledezma Referring Physician Oncology 08/08/23 Dr. Elliott Referring Physician Cardiology 08/08/23 Dr. Clemons Referring Physician Rheumatology 08/08/23 Dr. Carver Referring Physician Pulmonary Disease 08/08/23 Dr. Franco Referring Physician Otolaryngology 08/08/23 Emely Bonilla Referring Physician Palliative Medicine 08/08/23 Press Writer Relationship Specialty Start Date End Date Bee Vail MD PCP - General Internal Medicine 05/07/16 Irene Han, HEAT READER.SEWAGE DISPOSAL ENGINEER [address] [place] [address] Palliative Medicine Provider Hospice & Palliative Medicine 06/28/21 Kylie Mosher, RN Specialty Airport Manager Hospice & Palliative Medicine 09/27/21 Ruperto Ledezma MD [address] [place] [address] [place] [address] Physician Hematology 02/08/23 Ellyn Keller, HEAT READER.SEWAGE DISPOSAL ENGINEER [address] [facility] [place] [address] Referring Nurse Practitioner 02/26/23 Ellyn Keller, HEAT READER.SEWAGE DISPOSAL ENGINEER [address] [facility] [place] [address] Referring Nurse Practitioner 03/06/23 Fabiana Johnson LSW Internet Retailer 03/08/23 Sheila Lin, HEAT READER.SEWAGE DISPOSAL ENGINEER [address] [facility] [place] [address] Referring Internal Medicine 12/03/23 Press Writer Relationship Specialty Start Date End Date Bee Vail MD PCP - General Internal Medicine 05/07/16 Irene Han, HEAT READER.SEWAGE DISPOSAL ENGINEER [address] [place] [address] Palliative Medicine Provider Hospice & Palliative Medicine 06/28/21 Kylie Mosher, RN Specialty Airport Manager Hospice & Palliative Medicine 09/27/21 Ruperto Ledezma MD [address] [place] [address] [place] [address] Physician Hematology 02/08/23 Ellyn Keller, HEAT READER.SEWAGE DISPOSAL ENGINEER [address] [facility] [place] [address] Referring Nurse Practitioner 02/26/23 Ellyn Keller, HEAT READER.SEWAGE DISPOSAL ENGINEER [address] [facility] [place] [address] Referring Nurse Practitioner 03/06/23 Fabiana Johnson LSW Internet Retailer 03/08/23 Sheila Lin, HEAT READER.SEWAGE DISPOSAL ENGINEER [address] [facility] [place] [address] Referring Internal Medicine 12/03/23 Press Writer Relationship Specialty Start Date End Date Bee Vail MD [address] [facility] [place] [address] PCP - General Internal Medicine 06/26/22 Bee Vail MD [address] [facility] [place] [address] PCP - [employer] 10/19/21 Dr. Ledezma Referring Physician Oncology 08/08/23 Dr. Elliott Referring Physician Cardiology 08/08/23 Dr. Clemons Referring Physician Rheumatology 08/08/23 Dr. Carver Referring Physician Pulmonary Disease 08/08/23 Dr. Franco Referring Physician Otolaryngology 08/08/23 Emely Bonilla Referring Physician Palliative Medicine 08/08/23 Press Writer Relationship Specialty Start Date End Date Bee Vail MD [address] [facility] [place] [address] PCP - General Internal Medicine 06/26/22 Bee Vail MD [address] [facility] [place] [address] PCP - [employer] 10/19/21 Dr. Ledezma Referring Physician Oncology 08/08/23 Dr. Elliott Referring Physician Cardiology 08/08/23 Dr. Clemons Referring Physician Rheumatology 08/08/23 Dr. Carver Referring Physician Pulmonary Disease 08/08/23 Dr. Franco Referring Physician Otolaryngology 08/08/23 Emely Bonilla Referring Physician Palliative Medicine 08/08/23 Press Writer Relationship Specialty Start Date End Date Bee Vail MD [address] [facility] [place] [address] PCP - General Internal Medicine 06/26/22 Bee Vail MD [address] [facility] [place] [address] PCP - [employer] 10/19/21 Dr. Ledezma Referring Physician Oncology 08/08/23 Dr. Elliott Referring Physician Cardiology 08/08/23 Dr. Clemons Referring Physician Rheumatology 08/08/23 Dr. Carver Referring Physician Pulmonary Disease 08/08/23 Dr. Franco Referring Physician Otolaryngology 08/08/23 Emely Bonilla Referring Physician Palliative Medicine 08/08/23 Goals (unrecognized section and content) Goals may [...] BE BASED ON THE PRIMARY CLINICAL RECORDS. [facility]. provides no warranty or guarantee of the accuracy or completeness of information in this document.
--- NOTE | 2024-07-05 20:25 | ED.CHESTPAI1 ---
HPI - Chest Pain General Chief Complaint: Chest Pain Stated Complaint: CHEST PAIN Time Seen by Provider: 07/05/24 20:13 Source: patient Mode of arrival: walk-in Limitations: no limitations History of Present Illness HPI narrative: past history of Hodgkins treated with radiation. 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 Not short of breath. No associated nausea or diaphoresis past history of PE for which she takes Xarelto Related Data Home Medications ?Medication ?Instructions ?Recorded ?Confirmed atenolol 50 mg tablet 50 mg PO BID 04/02/23 07/05/24 cyclobenzaprine 10 mg tablet 10 mg PO BID PRN muscle spasm 04/02/23 07/05/24 gabapentin 300 mg capsule 600 mg PO BID 04/02/23 07/05/24 levothyroxine 75 mcg tablet 75 mcg PO .QD 04/02/23 07/05/24 lorazepam 0.5 mg tablet 0.5 mg PO QID PRN anxiety 04/02/23 07/05/24 oxycodone 10 mg tablet 10 mg PO Q8H PRN pain 04/02/23 07/05/24 rivaroxaban 10 mg tablet (Xarelto) 10 mg PO BEDTIME 04/02/23 07/05/24 dexlansoprazole 30 mg 30 mg PO DAILY 02/29/24 07/05/24 capsule,biphase delayed release prochlorperazine maleate 10 mg 10 mg PO Q6H PRN nausea and 02/29/24 07/05/24 tablet vomiting trazodone 150 mg tablet 150 mg PO BEDTIME PRN insomnia 03/01/24 07/05/24 ipratropium bromide 42 mcg (0.06 2 spray intranasal DAILY 07/05/24 07/05/24 %) nasal spray perfluorohexyloctane (PF) 100 % 1 drp ophthalmic (eye) DAILY 07/05/24 07/05/24 eye drops (Miebo (PF)) sodium chloride 3 % for 4 ml inhalation BID PRN secretions 07/05/24 07/05/24 nebulization umeclidinium 62.5 mcg-vilanterol 1 inh inhalation Q24H 07/05/24 07/05/24 25 mcg/actuation powdr for inhalation (Anoro Ellipta) Allergies Allergy/AdvReac Type Severity Reaction Status Date / Time NSAIDS (Non-Steroidal AdvReac Mild Unknown Verified 10/29/23 11:05 Anti-Inflamma Sulfa (Sulfonamide AdvReac Mild Rash Verified 10/29/23 10:04 Antibiotics) Review of Systems ROS Status of ROS 10 or more systems reviewed and unremarkable except as noted in history and below [facility] Medical History (Updated 07/05/24 @ 23:58 by Jose Carlos Mckeon MD) History of pulmonary embolism ?Z86.711 - Personal history of pulmonary embolism (ICD-10) Bronchiectasis with (acute) exacerbation ?J47.1 - Bronchiectasis with (acute) exacerbation (ICD-10) Asthma with COPD with exacerbation ?J44.1 - Chronic obstructive pulmonary disease with (acute) exacerbation (ICD-10) ?J45.901 - Unspecified asthma with (acute) exacerbation (ICD-10) Left lower lobe pneumonia ?J18.9 - Pneumonia, unspecified organism (ICD-10) Pneumonia ?J18.9 - Pneumonia, unspecified organism (ICD-10) Hypothyroid ?E03.9 - Hypothyroidism, unspecified (ICD-10) Restrictive lung disease ?J98.4 - Other disorders of lung (ICD-10) 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 - Drug-induced polyneuropathy (ICD-10) ?T45.1X5A - Adverse effect of antineoplastic and immunosuppressive drugs, initial encounter (ICD-10) Hodgkin lymphoma ?C81.90 - Hodgkin lymphoma, unspecified, unspecified site (ICD-10) Insomnia ?G47.00 - Insomnia, unspecified (ICD-10) Tachycardia ?R00.0 - Tachycardia, unspecified (ICD-10) Surgical History H/O stem cell transplant ?Z94.84 - Stem cells transplant status (ICD-10) Social History Within the past year, how often did you have a drink containing alcohol: monthly or less Within the past year, how many standard drinks containing alcohol did you have on a typical day: 1 or 2 Within the past year, how often did you have six or more drinks on one occasion: never Total score: 0 Score interpretation: A score less than 3 is consistent with normal alcohol consumption. Smoking status: Never smoker Non-prescribed substance use: denies use Previous occupational history: unemployed Highest level of school completed/degree received: Associate degree: occupational, technical, vocational program Are you now , , , , never or living with a partner: In a typical week, how many times do you talk on the telephone with family, friends, or neighbors: 3 or more times per week How often do you get together with friends or relatives: 3 or more times per week How often do you attend gnosticist or hindu services: never Do you belong to any clubs or organizations such as gnosticist groups unions, [employer] or athletic groups, or school groups: no Total score: 2 Score interpretation: A score of greater than or equal to 2 indicates the lowest level of social isolation. Little interest or pleasure in doing things: not at all Feeling down, depressed, or hopeless: not at all Feel stressed/tense/nervous/anxious/difficulty sleeping: not at all Do you think of yourself as: straight/heterosexual Gender Identity: female Exam Constitutional Vital Signs, click to edit/add: Last Vital Signs Temp 97.7 F 07/05/24 19:55 Pulse 108 H 07/06/24 00:54 Resp 17 07/06/24 00:54 BP 122/84 07/06/24 00:54 Pulse Ox 95 07/06/24 00:54 O2 Del Method Nasal Cannula 07/05/24 23:31 O2 Flow Rate 2 07/05/24 23:31 Common normals: no apparent distress, average body habitus, oriented x3, no limitations, healthy appearing, alert and well nourished [facility] Common normals: normocephalic and head/scalp atraumatic Respiratory Common normals: normal respiratory effort, no retractions, no use of accessory muscles and clear to auscultation bilaterally Cardio Common normals: regular rate, regular rhythm, S1 normal heart sound and S2 normal heart sound GI Common normals: Normal to inspection, nondistended, normoactive bowel sounds present, soft to palpation and non-tender Extremity Common normals: normal to inspection and full ROM Neuro Common normals: oriented x3, CN's II-XII intact bilaterally, moves all extremities and no focal motor deficits Psych Appearance: grossly normal Course Vital Signs Vital signs: Vital Signs Temperature 97.7 F 07/05/24 19:55 Pulse Rate 102 H 07/05/24 19:55 Respiratory Rate 19 07/05/24 19:55 Blood Pressure 122/83 07/05/24 19:55 Pulse Oximetry 95 07/05/24 19:55 Oxygen Delivery Method Room Air 07/05/24 19:55 Temperature 97.7 F 07/05/24 19:55 Pulse Rate 108 H 07/06/24 00:54 Respiratory Rate 17 07/06/24 00:54 Blood Pressure 122/84 07/06/24 00:54 Pulse Oximetry 95 07/06/24 00:54 Oxygen Delivery Method Nasal Cannula 07/05/24 23:31 Oxygen Delivery Flow Rate 2 07/05/24 23:31 MDM - Chest Pain MDM Narrative Medical decision making narrative: patient presents complaining of chest pain for 1/2 with numbness LUE. EKG with ST depression I, aVL, V6. Patient given 02 2 L NC and pain has improved some. labs, morphine and nitro sl ordered xray with evidence of infiltrate left chest. Blood cx , rocephin and zithromax ordered. Troponin bumped from 33 to 641. she continues to have chest pain but improved. Nitro drip and heparin ordered. Cardiology paged Discussed with Cardiology Dr Yu and he would like her admitted to the hospitalist service and that she will likely need heart cath discussed with hospitalist and patient accepted to step down unit Lab Data Labs: Lab Results 07/05/24 07/05/24 Range/Units 20:05 23:28 WBC 9.0 (4.0-11.0) 10^3/uL RBC 4.33 (4.20-5.40) 10^6/uL Hgb 13.7 (12.0-16.0) g/dL Hct 40.7 (36.0-48.0) % MCV 94.0 (81.0-99.0) fL MCH 31.6 (26.7-34.0) pg MCHC 33.7 (29.9-35.2) g/dL RDW 13.0 (11.0-15.0) % Plt Count 311 (150-450) 10^3/uL MPV 9.3 L (9.5-13.5) fL Neut % (Auto) 45.4 (43.0-75.0) % Lymph % (Auto) 39.5 (20.5-60.0) % Stevens % (Auto) 10.7 (1.7-12.0) % Eos % (Auto) 3.9 (0.9-7.0) % Baso % (Auto) 0.3 (0.2-2.0) % Neut # (Auto) 4.1 (1.4-6.5) 10^3/uL Lymph # (Auto) 3.5 (1.2-3.8) 10^3/uL Stevens # (Auto) 1.0 H (0.3-0.8) 10^3/uL Eos # (Auto) 0.4 (0.0-0.7) 10^3/uL Baso # (Auto) 0.0 (0.0-0.1) 10^3/uL Abs Immat Gran (auto) 0.02 (0.00-0.03) 10^3/uL Imm/Tot Granulo (auto) 0.2 (0.0-0.5) % APTT 28.5 (22.3-36.2) sec D-Dimer 0.21 (<=0.59) mg/L FEU Sodium 140 (136-145) mmol/L Potassium 3.5 (3.5-5.1) mmol/L Chloride 103 (98-107) mmol/L Carbon Dioxide 28.9 (21.0-32.0) mmol/L Anion Gap 11.6 BUN 8.0 (7.0-18.0) mg/dL Creatinine 0.88 (0.55-1.02) mg/dL Est GFR ( Amer) >60 (>=60 mL/min/1.73m^2) Est GFR (Non-Af Amer) >60 (>=60 mL/min/1.73m^2) BUN/Creatinine Ratio 9.1 Glucose 101 (74-106) mg/dL Lactate 1.7 (0.4-2.0) mmol/L Calcium 9.3 (8.5-10.1) mg/dL Troponin I High Sens 33.8 641.2 H* (4.0-51.3) pg/mL NT-Pro-B Natriuret Pep 347.0 (<=450.0) pg/mL Critical Care Time Critical Care Time Total Critical Care Time: 45 Discharge Plan Discharge Chief Complaint: Chest Pain Clinical Impression: Pneumonia, Non-ST elevation [place] (NSTEMI) Patient Disposition: [facility]
[2024-07-05 20:33] LABS: Basophils Percent Auto 0.3 % (0.2-2.0); Eosinophils Absolute Auto 0.4 10^3/uL (0.0-0.7); Eosinophils Percent Auto 3.9 % (0.9-7.0); Hematocrit 40.7 % (36.0-48.0); Hemoglobin 13.7 g/dL (12.0-16.0); Immature Granulocytes Abs Auto 0.02 10^3/uL (0.00-0.03); Immature Granulocytes Pct Auto 0.2 % (0.0-0.5); Lymphocytes Absolute Auto 3.5 10^3/uL (1.2-3.8); Lymphocytes Percent Auto 39.5 % (20.5-60.0); Mean Corpuscular HGB Conc 33.7 g/dL (29.9-35.2); Mean Corpuscular Hemoglobin 31.6 pg (26.7-34.0); Mean Platelet Volume 9.3 fL (9.5-13.5); Monocytes Percent Auto 10.7 % (1.7-12.0); Neutrophils Absolute Auto 4.1 10^3/uL (1.4-6.5); Neutrophils Percent Auto 45.4 % (43.0-75.0); Platelet Count 311 10^3/uL (150-450); Red Blood Count 4.33 10^6/uL (4.20-5.40)
[2024-07-05] MEDS: MORPHINE SULFATE 4 MG/ML VIAL IV (20:35)
[2024-07-05] MEDS: NITROGLYCERIN 0.4 MG BOTTLE SL (20:35)
[2024-07-05] MEDS: 0.9 % SODIUM CHLORIDE 1,000 ML 999 ML IV (20:36)
[2024-07-05 20:47] LABS: D Dimer 0.21 mg/L FEU (<=0.59)
[2024-07-05 20:58] LABS: Anion Gap 11.6; BUN Creatinine Ratio 9.1; Calcium 9.3 mg/dL (8.5-10.1); Carbon Dioxide 28.9 mmol/L (21.0-32.0); Chloride 103 mmol/L (98-107); Estimated GFR (African America >60 (>=60 mL/min/1.73m^2); Estimated GFR (Non-African Ame >60 (>=60 mL/min/1.73m^2); Glucose 101 mg/dL (74-106); Potassium 3.5 mmol/L (3.5-5.1); Sodium 140 mmol/L (136-145); Troponin I High Sensitivity 33.8 pg/mL (4.0-51.3)
[2024-07-05 21:46] LABS: Lactate/Lactic Acid 1.7 mmol/L (0.4-2.0)
[2024-07-05] MEDS: METHYLPREDNISOLONE SOD SUCC PF 125 MG/2 ML VIAL IVP (21:50)
[2024-07-05] MEDS: CEFTRIAXONE 1,000 MG in 0.9 % SODIUM CHLORIDE 50 ML 100 MG IV (21:51)
[2024-07-05] MEDS: AZITHROMYCIN 500 MG in 0.9 % SODIUM CHLORIDE 250 ML 250 MG IV (22:21)
[2024-07-05] MEDS: ONDANSETRON PF 4 MG/2 ML VIAL IV (23:25)
[2024-07-05] MEDS: LORAZEPAM 2 MG/ML VIAL 0.5 MG IV (23:25)
--- NOTE | 2024-07-05 23:31 | PC.NURSE ---
INCREASED SUPPLEMENTAL 02 TO 3L NASAL CANNULA
[2024-07-05 23:50] LABS: Troponin I High Sensitivity 641.2 pg/mL (4.0-51.3)
[2024-07-06] VITALS (27 sets, daily range): BP systolic 100–122; BP diastolic 67–85; PULSE 101–124; O2SAT 88–96
[2024-07-06 00:09] LABS: Partial Thromboplastin Time 28.5 sec (22.3-36.2)
--- NOTE | 2024-07-06 00:27 | ECG_ITS ---
[facility] Test Date: 2024-07-05 Pat Name: CELSO POTTS Department: Room: - Gender: Female Technical Specialist Cytology: : 1980 Requested By: [id number] Order Number: [id number] Reading MD: TREY HDZ M.D. Measurements Intervals [place] Rate: 100 P: 62 [place]: 176 QRS: -41 QRSD: 100 T: 30 QT: 364 QTc: 421 Interpretive Statements 1120 Sinus tachycardia 3114 Cannot rule out anterior myocardial infarction, age undetermined 3634 Inferior myocardial infarction, age undetermined [address] depression 9150 abnormal ECG Compared to ECG 07/05/2024 20:00:35 Left-axis deviation no longer present Myocardial infarct finding still present ST (T wave) deviation still present Electronically Signed On 07-06-2024 8:05:24 EDT by TREY HDZ M.D.
[2024-07-06] MEDS: NITROGLYCERIN IN 5 % DEXTROSE 50 MG/250 ML INFUS..BTL IV (00:29)
[2024-07-06] MEDS: HEPARIN SODIUM (PORCINE) 5,000 UNIT/ML VIAL 4000 UNIT IV (00:49)
[2024-07-06] MEDS: HEPARIN SODIUM,PORCINE/D5W 25,000 UNIT/500 ML IV.SOLN 19.68 UNIT IV (00:49)
[2024-07-06] MEDS: ASPIRIN 81 MG TAB.CHEW 324 MG PO (01:22)
--- NOTE | 2024-07-06 03:45 | ECG_ITS ---
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 Measurements Intervals [place] Rate: 105 P: 63 [place]: 164 QRS: -40 QRSD: 98 T: 5 QT: 360 QTc: 421 Interpretive Statements 1120 Sinus tachycardia 3113 Cannot rule out anterior myocardial infarction, probably old 3634 Inferior myocardial infarction, age undetermined 5211 Minimal voltage criteria for LVH, may be normal variant 7200 Abnormal left axis deviation 9150 abnormal ECG Compared to ECG 07/05/2024 22:42:29 Left ventricular hypertrophy now present Left-axis deviation now present ST (T wave) deviation no longer present Myocardial infarct finding still present Electronically Signed On 07-06-2024 8:06:12 EDT by TREY HDZ M.D.
[2024-07-06] MEDS: AMIODARONE IN DEXTROSE,ISO-OSM 150 MG/100 ML PIGGYBACK 600 MG IV (04:27)
[2024-07-06] MEDS: AMIODARONE IN DEXTROSE,ISO-OSM 360 MG/200 ML PLAST..BAG 16.667 MG IV (04:28)
== END 2024-07-06 04:25 | disposition short-term general hospital (02) ==
PROVIDERS: Emergency Provider Internal Medicine; PCP Internal Medicine
DX: I21.4 Non-ST elevation (NSTEMI) myocardial infarction (principal); J18.9 Pneumonia, unspecified organism; Z86.711 Personal history of pulmonary embolism; Z79.01 Long term (current) use of anticoagulants; Z85.71 Personal history of Hodgkin lymphoma; Z92.3 Personal history of irradiation; Z94.84 Stem cells transplant status
CPT/HCPCS: 36415; 71045; 80048; 83605; 83880; 84484; 85025; 85378; 85730; 87040; 93005; 96365; 96366; 96367; 96368; 96375; 96376; 99285; J0283; J0456; J0696; J1644; J2060; J2270; J2305; J2405; J2919

== ENCOUNTER 2024-08-12 15:04 | Outpatient (REF) | payer MEDICARE, MEDICAID, SELFPAY ==
--- OUTSIDE RECORDS SUMMARY | 2024-08-12 10:00 | XMS_ITS | Encounter Summary ---
Author Organization [facility] Address [address] [facility] [place] [address] Care Team Providers Care Ride Assembly Supervisor Name Role Phone Bee Moya MD Primary Care Provider [phone] Bee Moya MD Unavailable [phone] Reason for Visit * Reason Comments Well Women Visit Encounter Details Date Type Department Care Team ([facility] Contact Info) Description 08/12/2024 10:00 AM EDT Office Visit [facility] OB [address] [place] [place] [address] Cristine Azul NP [address] [facility] [place] [address] Symptomatic states associated with artificial menopause [...] (HCC) 07/21/2024 NSTEMI (non-ST elevated myocardial infarction) ([facility]) 07/21/2024 Hx of pulmonary embolus 07/21/2024 Inappropriate sinus tachycardia ([facility]) 07/21/2024 Mixed hyperlipidemia 07/21/2024 Resolved Ambulatory Problems [...] Menopause Neuropathy NSTEMI (non-ST elevated myocardial infarction) ([facility]) 07/21/2024 Social History Tobacco Use Smoking status: [...] nursing note reviewed. Exam conducted with a registered nurse behavioral health present. Vitals: Estimated body mass index is [...] EDT Office Visit [facility] [address] [place] [address] Cristine Azul NP [address] [facility] [address] 09/10/2024 9:30 AM EDT Office Visit [facility] [address] [place] [address] Lina Charles, TOBY MAKER [address] [facility] [place] [address] 08/19/2025 11:00 AM EDT Office Visit [facility] OB [address] [place] [place] [address] Sebastian Montiel, DO [address] [facility] [place] [address] Scheduled Orders Name Type Priority Associated Diagnoses [...] documented as of this encounter Care Teams Ride Assembly Supervisor Relationship Specialty Start Date End Date Bee Moya MD [address] [place] [address] PCP - General Internal Medicine 06/26/22 Bee Moya MD [address] [place] [address] PCP - [employer] 10/19/21 Dr. Ledezma Referring Physician Oncology 08/08/23 Dr. Elliott Referring Physician Cardiology 08/08/23 Dr. Clemons Referring Physician Rheumatology 08/08/23 Dr. Becerril Referring Physician Pulmonary Disease 08/08/23 Dr. Franco Referring Physician Otolaryngology 08/08/23 Emely Bonilla Referring Physician Palliative Medicine 08/08/23 documented as of this encounter
--- OUTSIDE RECORDS SUMMARY | 2024-08-12 15:08 | XMS_ITS | Encounter Summary ---
Author Organization [facility] Address [address] [facility] [place] [address] Care Team Providers Care Power Press Tender Name Role Phone Bee Moya MD Primary Care Provider [phone] Bee Moya MD Unavailable [phone] Encounter Details Date Type Department Care Team (Late Contact Info) Description 04/19/2023 Clinisync Result Encounter [facility] External Department Unsolicited Provider, Generic External Data Social History Tobacco Use Types Packs/Day Years Used Date Smoking Tobacco: Former Cigarettes Smokeless Tobacco: Never Alcohol Use Standard Drinks/Week Comments Yes 0 (1 standard drink = 0.6 oz pur e alcohol) PHQ-2 Answer Date Recorded Patient Health Questionnaire-2 Score 0 02/12/2023 Comments Unknown Sex and Gender Information Value Date Recorded Sex Assigned at Not on file Legal Sex Female 8:26 PM EDT Gender Identity Not on file Sexual Orientation Not on file documented as of this encounter Plan of Treatment Upcoming Encounters Date Type Department Care Team (Late Contact Info) Description 09/09/2024 10:20 AM EDT Office Visit [facility] [address] [place] [address] Cristine Azul NP [address] [place] [address] 09/10/2024 9:30 AM EDT Office Visit [facility] [address] [place] [address] Lina Charles, MEDICINAL CHEMIST [address] [place] [address] 08/19/2025 11:00 AM EDT Office Visit [facility] OB [address] [facility] [place] [address] Sebastian Montiel, DO [address] [facility] [place] [address] documented as of this encounter Procedures Procedure Name Priority Date/Time Associated Diagnosis Comments XR CHEST 2V FRONTAL/LAT 04/19/2023 9:38 AM EST documented in this encounter Results * XR CHEST 2V FRONTAL/LAT (04/19/2023 9:38 AM EST) Anatomical Region Laterality Modality Other 04/19/2023 9:38 AM EST Narrative 04/21/2023 5:51 AM EST * * *Final Report* * * DATE [...] and soft tissues: Unremarkable. IMPRESSION: See result. Patient Resource Specialist: [email or web address] Transcribe Date/Time: Apr 21 2023 5:48A Dictated by : KOLE KEARNEY MD This examination was interpreted and the report reviewed and electronically signed by: KOLE KEARNEY MD on Apr 21 2023 5:49AM EST [id number] Procedure Note Radiology, Radiologist, - 04/21/2023 * * *Final Report* * * DATE [...] and soft tissues: Unremarkable. IMPRESSION: See result. Patient Resource Specialist: [email or web address] Transcribe Date/Time: Apr 21 2023 5:48A Dictated by : KOLE KEARNEY MD This examination was interpreted and the report reviewed and electronically signed by: KOLE KEARNEY MD on Apr 21 2023 5:49AM EST [id number] Generic External Data Provider [facility] Final Result documented in this encounter Visit Diagnoses Not on filedocumented in this encounter Care Teams Power Press Tender Relationship Specialty Start Date End Date Bee Moya MD [address] [place] [address] PCP - General Internal Medicine 06/26/22 Bee Moya MD [address] [place] [address] PCP - [employer] 10/19/21 Dr. Ledezma Referring Physician Oncology 08/08/23 Dr. Elliott Referring Physician Cardiology 08/08/23 Dr. Clemons Referring Physician Rheumatology 08/08/23 Dr. Becerril Referring Physician Pulmonary Disease 08/08/23 Dr. Franco Referring Physician Otolaryngology 08/08/23 Emely Bonilla Referring Physician Palliative Medicine 08/08/23 documented as of this encounter
--- OUTSIDE RECORDS SUMMARY | 2024-08-12 15:08 | XMS_ITS | Encounter Summary ---
Author Organization [facility] Address [address] [facility] [place] [address] Care Team Providers Care Radiotelegraph Operator Servicer Name Role Phone Bee Moya MD Primary Care Provider [phone] Bee Moya MD Unavailable [phone] Encounter Details Date Type Department Care Team (Late st Contact Info) Description 12/04/2022 Abstract [facility] [address] [facility] [place] [address] Bee Moya MD [address] [facility] [place] [address] Social History Tobacco Use Types Packs/Day Years Used Date Smoking Tobacco: Former Cigarettes Smokeless Tobacco: Never Alcohol Use Standard Drinks/Week Comments Yes 0 (1 standard drink = 0.6 oz pur e alcohol) PHQ-2 Answer Date Recorded Patient Health Questionnaire-2 Score 0 12/04/2022 Comments Unknown Sex and Gender Information Value Date Recorded Sex Assigned at Not on file Legal Sex Female 8:26 PM EDT Gender Identity Not on file Sexual Orientation Not on file COVID-19 Exposure Response Date Recorded In the last 10 days, have yo u been in contact with someone who was confirmed or suspected to have Coronavirus/COVID-19? No / Unsure 12/05/2022 1:43 PM EDT documented as of this encounter Functional Status * Over the past 2 weeks, how often have you been bothered by any of the following problems? Question Answer Date of Assessment Author Little interest or pleasure in doing things Not at all 12/04/2022 2:31 PM EDT Khalif Travis MA Feeling down, depressed, or hopeless Not at all 12/04/2022 2:31 PM EDT Khalif Travis OWEN Patient Health Questionnaire -2 Score 0 12/04/2022 2:31 PM EDT Khalif Travis MA documented as of this encounter Plan of Treatment Upcoming Encounters Date Type Department Care Team (Late st Contact Info) Description 09/09/2024 10:20 AM EDT Office Visit [facility] [address] [facility] [place] [address] Cristine Azul, SALES AND LEASING AGENT [address] [place] [address] 09/10/2024 9:30 AM EDT Office Visit [facility] [address] [place] [address] Lina Charles, SALES AND LEASING AGENT [address] [facility] [place] [address] 08/19/2025 11:00 AM EDT Office Visit [facility] OB [address] [place] [address] Sebastian Montiel DO [address] [place] [address] documented as of this encounter Visit Diagnoses Not on filedocumented in this encounter Care Teams Radiotelegraph Operator Servicer Relationship Specialty Start Date End Date Bee Moya MD [address] [place] [address] PCP - General Internal Medicine 06/26/22 Bee Moya MD [address] [place] [address] PCP - [employer] 10/19/21 Dr. Ledezma Referring Physician Oncology 08/08/23 Dr. Elliott Referring Physician Cardiology 08/08/23 Dr. Clemons Referring Physician Rheumatology 08/08/23 Dr. Becerril Referring Physician Pulmonary Disease 08/08/23 Dr. Franco Referring Physician Otolaryngology 08/08/23 Emely Bonilla Referring Physician Palliative Medicine 08/08/23 documented as of this encounter
--- OUTSIDE RECORDS SUMMARY | 2024-08-12 15:08 | XMS_ITS | Encounter Summary ---
Author Organization [facility] Address [address] [facility] [place] [address] Care Team Providers Care Paper Goods Machine Set Up Operator Name Role Phone Bee Moya MD Primary Care Provider [phone] Bee Moya MD Unavailable [phone] Encounter Details Date Type Department Care Team (Late Contact Info) Description 05/20/2023 Clinisync Result Encounter N[facility] External Department Unsolicited [...] Office Visit [facility] [address] [facility] [place] [address] Cristine Azul NP [address] [place] [address] 09/10/2024 9:30 AM EDT Office Visit [facility] LPS IM [address] [place] [address] Lina Charles, GUEST RELATIONS OFFICER [address] [place] [address] 08/19/2025 11:00 AM EDT Office Visit [facility] BCP OB [address] [facility] [place] [address] Sebastian Montiel, DO [address] [facility] [place] [address] documented as of this encounter Procedures Procedure Name Priority Date/Time Associated Diagnosis Comments NM PET/CT SKULL-THIGH SUBQ 05/20/2023 2:23 PM EDT documented in this encounter Results * NM PET/CT SKULL-THIGH SUBQ (05/20/2023 2:23 PM EDT) Anatomical Region Laterality Modality Other 05/20/2023 2:23 PM EDT Narrative 05/21/2023 12:52 PM EDT * * *Final Report* * * DATE [...] * Radiopharmaceutical Dose: 12.1 mCi * Radiopharmaceutical: [id number] (FDG) COMPARISON: FDG PET/CT dated 01/28/2023. CORRELATION: None. RESULT: REFERENCES: SUV reference values: * Blood pool (descending aorta) activity: SUVmax 2.8 * Background liver activity: SUVmax 3.6; SUVmean 2.7 Dry Kiln Worker (topogram) images: No additional findings. Notes and limitations: * Standardized uptake values indicate the highest activity concentration (SUVmax) at a given location but can be variable and are not absolute. * Physiologic/non-neoplastic uptake is common in the brain, extraocular [...] NECK: Imaged Head: No abnormal uptake. Neck and Lymph Nodes: No abnormal uptake. Thyroid: No abnormal uptake. CHEST: Lungs and Airways: Pleural parenchymal opacities without significant FDG uptake in the left lung primarily involving the apical portion, perihilar and infrahilar portions, appears stable to less prominent, likely representing chronic atelectasis and/or scarring. No hypermetabolic consolidation, mass or nodules. Pleura and Pericardium: Small left pleural effusion; minimally increased in size in the interim. Cardiovascular: No abnormal uptake. Mediastinum and Lymph Nodes: No abnormal uptake. ABDOMEN AND PELVIS: Hepatobiliary: No abnormal uptake. Spleen: No abnormal uptake. Pancreas: No abnormal uptake. Adrenals: No abnormal uptake. Urinary Tract: No abnormal uptake. GI Tract: No abnormal uptake. Peritoneum: No abnormal uptake. Vasculature: No abnormal uptake. Retroperitoneum and Lymph Nodes: No abnormal uptake. Pelvis: No abnormal uptake. MUSCULOSKELETAL: Osseous: No abnormal uptake. Soft Tissues: No abnormal uptake. IMPRESSION: HEAD/NECK: * No FDG avid neoplastic [...] any questions regarding this interpretation, please call [phone]. If you are unable to reach us at the number above, please feel free to contact [facility] at [phone]. [id number] Procedure Note Radiology, Radiologist, - 05/21/2023 * * *Final Report* * [...] * Radiopharmaceutical Dose: 12.1 mCi * Radiopharmaceutical: [id number] (FDG) COMPARISON: FDG PET/CT dated 01/28/2023. CORRELATION: None. RESULT: REFERENCES: SUV reference values: * Blood pool (descending aorta) activity: SUVmax 2.8 * Background liver activity: SUVmax 3.6; SUVmean 2.7 Dry Kiln Worker (topogram) images: No additional findings. Notes and limitations: * Standardized uptake values indicate the highest activity concentration (SUVmax) at a given location but can be variable and are not absolute. * Physiologic/non-neoplastic uptake is common in the brain, extraocular [...] NECK: Imaged Head: No abnormal uptake. Neck and Lymph Nodes: No abnormal uptake. Thyroid: No abnormal uptake. CHEST: Lungs and Airways: Pleural parenchymal opacities without significant FDG uptake in the left lung primarily involving the apical portion, perihilar and infrahilar portions, appears stable to less prominent, likely representing chronic atelectasis and/or scarring. No hypermetabolic consolidation, mass or nodules. Pleura and Pericardium: Small left pleural effusion; minimally increasedin size in the interim. Cardiovascular: No abnormal uptake. Mediastinum and Lymph Nodes: No abnormal uptake. ABDOMEN AND PELVIS: Hepatobiliary: No abnormal uptake. Spleen: No abnormal uptake. Pancreas: No abnormal uptake. Adrenals: No abnormal uptake. Urinary Tract: No abnormal uptake. GI Tract: No abnormal uptake. Peritoneum: No abnormal uptake. Vasculature: No abnormal uptake. Retroperitoneum and Lymph Nodes: No abnormal uptake. Pelvis: No abnormal uptake. MUSCULOSKELETAL: Osseous: No abnormal uptake. Soft Tissues: No abnormal uptake. IMPRESSION: HEAD/NECK: * No FDG avid neoplastic [...] any questions regarding this interpretation, please call [phone]. If you are unable to reach us at the number above, please feel free to contact [facility] at [phone]. [id number]^[email or web address] us Generic External Data Provider [facility] Final Result documented in this encounter Visit Diagnoses Not on filedocumented in this encounter Care Teams Paper Goods Machine Set Up Operator Relationship Specialty Start Date End Date Bee Moya MD [address] [facility] [place] [address] PCP - General Internal Medicine 06/26/22 Bee Moya MD [address] [place] [address] PCP - [employer] 10/19/21 Dr. Ledezma Referring Physician Oncology 08/08/23 Dr. Elliott Referring Physician Cardiology 08/08/23 Dr. Clemons Referring Physician Rheumatology 08/08/23 Dr. Becerril Referring Physician Pulmonary Disease 08/08/23 Dr. Franco Referring Physician Otolaryngology 08/08/23 Emely Bonilla Referring Physician Palliative Medicine 08/08/23 documented as of this encounter
--- OUTSIDE RECORDS SUMMARY | 2024-08-12 15:08 | XMS_ITS | Encounter Summary ---
Author Organization [facility] Address [address] [facility] [place] [address] Care Team Providers Care Cork Tipper Name Role Phone Bee Moya MD Primary Care Provider [phone] Bee Moya MD Unavailable [phone] Encounter Details Date Type Department Care Team (Late Contact Info) Description 07/30/2024 Clinisync Result Encounter [facility] External Department Unsolicited [...] EDT Office Visit [facility] OB [address] [facility] [place] [address] Cristine Azul NP [address] [place] [address] 09/10/2024 9:30 AM EDT Office Visit [facility] IM [address] [place] [address] Lina Charles, TOOL POLISHING MACHINE OPERATOR [address] [place] [address] 08/19/2025 11:00 AM EDT Office Visit [facility] BCP OB [address] [facility] [place] [address] Sebastian Montiel, DO [address] [facility] [place] [address] documented as of this encounter Procedures Procedure Name Priority Date/Time Associated Diagnosis Comments QUANT TOX PANEL Routine 07/30/2024 10:26 AM EDT [facility] SPECIMEN VALIDITY, URINE Routine 07/30/2024 10:26 AM EDT documented in this encounter Results * (ABNORMAL) QUANT TOX PANEL (07/30/2024 10:26 AM EDT) [facility] 6MAM UR-MCNC <5 <5 ng/mL [facility] Comment:6-Monoacetylmorphine is a metabolite of heroin. [facility] AMPHET UR CFM-MCNC <25 <25 ng/mL [facility] Comment:Methylphenidate does not contain or metabolize to amphetamine. [facility] BUPRENORPHINE UR-MCNC <5 <5 ng/mL [facility] Comment:Patients using trans dermal formulations of buprenorphine may yield undetectable buprenorphine and norbuprenorphine urine concentrations. [facility] BZE UR CFM-MCNC <25 <25 ng/mL [facility] Comment:Benzoylecgonine is a metabolite of cocaine. [facility] CODEINE UR CFM-MCNC <25 <25 ng/mL [facility] CCF EDDP UR CFM-MCNC <25 <25 ng/mL [facility] Comment:3-Quvaajstbg-1,5-dim ethyl-3,3-diphenylpyrrolidine (EDDP) is a metabolite of methadone. [facility] FENTANYL UR CFM-MCNC <1 <1 ng/mL [facility] HYDROCODONE UR CFM-MCNC <25 <25 ng/mL [facility] HYDROMORPHONE UR CFM-MCNC <25 <25 ng/mL [facility] MDA, UR <25 <25 ng/mL [facility] Comment:3,4 Methylenedioxyam phetamine is also known as MDA. MDEA, UR <25 <25 ng/mL [facility] Comment:3,4 Methylenedioxy-N -ethylamphetamine is also known as MDEA. MDMA, UR <25 <25 ng/mL [facility] Comment:3,4-Methylenedioxyme thamphetamine is also known as MDMA. [facility] METHADONE UR CFM-MCNC <25 <25 ng/mL [facility]CF METHAMPHET UR CFM-MCNC <25 <25 ng/mL [facility]CF MORPHINE UR CFM-MCNC <25 <25 ng/mL [facility] NORBUPRENORPHINE UR-MCNC <10 <10 ng/mL [facility] Comment:Norbuprenorphine is a metabolite of buprenorphine. Patients using transdermal formulations of buprenorphine may yield undetectable buprenorphine and norbuprenorphine urine concentrations. [facility] NORFENTANYL UR CFM-MCNC <1 <1 ng/mL [facility] Comment:Norfentanyl is a met abolite of fentanyl. NORHYDROCODONE, UR <25 <25 ng/mL [facility] Comment:Norhydrocodone is a metabolite of hydrocodone. NOROXYCODONE, UR 3,678(H) <25 ng/mL [facility] Comment:Noroxycodone is a me tabolite of oxycodone. Presence of noroxycodone is consistent with use of a oxycodone-containing drug. Noroxycodone is metabolized to noroxymorphone. NOROXYMORPHONE, UR 381(H) <25 ng/mL [facility] Comment:Noroxymorphone is a metabolite of oxymorphone and oxycodone and a minor metabolite of naltrexone and naloxone. Presence of noroxymorphone is consistent with use of an oxymorphone-containing drug or a drug that metabolizes to oxymorphone or noroxymorphone. [facility] NORTRAMADOL UR-MCNC <25 <25 ng/mL [facility] Comment:O-desmethyltramadol is a metabolite of tramadol. [facility] OXYCODONE UR CFM-MCNC 4,599(H) <25 ng/mL [facility] Comment:Presence of oxycodon e is consistent with use of an oxycodone-containing drug. Oxycodone is metabolized to noroxycodone and oxymorphone. [facility] OXYMORPHONE UR CFM-MCNC 2,592(H) <25 ng/mL [facility] Comment:Presence of oxymorph one is consistent with use of an oxymorphone- containing drug or by oxycodone metabolism. Oxymorphone is metabolized to noroxymorphone. PCP UR CFM-MCNC <10 <10 ng/mL [facility] Comment:Phencyclidine is als o known as PCP. PHENTERMINE, UR <25 <25 ng/mL [facility] CARBOXYTHC UR-MCNC <10 <10 ng/mL [facility] Comment:96-Pqw-4-carboxy-tet rahydrocannabinol (bdguh-2-lbomtbn-THC) is a metabolite of zjfaw-3-evqfangeqhxroxjidvyw (THC). This test does not differentiate between delta-8 or delta-9 carboxy-THC. [facility] TRAMADOL UR CFM-MCNC <25 <25 ng/mL [facility] NOTE, UR TOXICOLOGY PANEL [facility] Comment: For medical purposes only. Not valid for legal or forensic purposes. This test was developed, and its performance characteristics determined by the [facility] Department of Pathology and Laboratory Medicine. It has not been cleared or approved by the FDA. The [facility] Department of Pathology and Laboratory Medicine is regulated under CLIA as qualified to perform high- complexity testing. This test is used for clinical purposes. It should not be regarded as investigational or for research. 07/30/2024 10:2 6 AM EDT 07/30/2024 3:56 PM EDT Narrative MELVIN - 08/03/2024 1:51 PM EDT Specimen Type: URINE SPECIMEN Ordering Facility: [facility] Address: [address] [place] [id number] Original Ordering Provider: JUAN FRANCISCO HUTCHINSON us Generic External Data Provider LAB BLOOD ORDERAB LES Final Result [facility] [address] [facility] [address] [place] [address] * [facility] SPECIMEN VALIDITY, URINE (07/30/2024 10:26 AM EDT) [facility] SPECIMEN VALIDITY QUALITY Specimen quality results within acceptable limits [facility]CF CREATININE,UR INE 135.6 20.0 - 300.0 mg/dL [facility] PH,URINE 5.6 4.5 - 8.0 [facility] SPEC GRAVITY,UR 1.024 1.003 - 1.035 [facility] OXIDANTS,URIN E <38 <200 mg/L [facility] NITRITES,URIN E <50 <500 mg/L [facility] 07/30/2024 10:2 6 AM EDT 07/30/2024 3:56 PM EDT Narrative [facility] - 08/03/2024 1:51 PM EDT Specimen Type: URINE SPECIMEN Ordering Facility: [facility] Address: [address] [place] [address] Original Ordering Provider: JUAN FRANCISCO HUTCHINSON us Generic External Data Provider CLINIS[facility] F inal Result Performing Organization Address City/State/[facility] Co de Phone Number [facility] [address] [place], [place] [address] [address] documented in this encounter Visit Diagnoses Not on filedocumented in this encounter Additional Health Concerns Assessment Noted Time PHQ-9 Depression Total Score: 5 06/09/19 25 8:00 AM EDT documented as of this encounter Care Teams Cork Tipper Relationship Specialty Start Date End Date Bee Moya MD [address] [facility] [place] [address] PCP - General Internal Medicine 06/26/22 Bee Moya MD [address] [place] [address] PCP - [employer] 10/19/21 Dr. Ledezma Referring Physician Oncology 08/08/23 Dr. Elliott Referring Physician Cardiology 08/08/23 Dr. Clemons Referring Physician Rheumatology 08/08/23 Dr. Becerril Referring Physician Pulmonary Disease 08/08/23 Dr. Franco Referring Physician Otolaryngology 08/08/23 Emely Juan Francisco Referring Physician Palliative Medicine 08/08/23 documented as of this encounter
--- OUTSIDE RECORDS SUMMARY | 2024-08-12 15:08 | XMS_ITS | Clinical Summary ---
Author Organization [facility] Address [address] [place] [address] Care Team Providers Care Energy Audit Advisor Name Role Phone Unavailable Primary Care Provider Unavailabl e Allergies Active Allergy Reactions Criticality Noted Date Comments Not Able To Determine 10/22/2014 chlorahexadine Sulfa Antibiotics 10/22/2014 Medications gabapentin 300 MG Cap take 300 mg by mouth 3 times daily. Active acyclovir 200 MG Cap take 400 mg by mouth 2 times daily. Active Rivaroxaban (XARELTO) 20 MG take 20 mg by mouth daily with dinner. Active omeprazole [address] take 40 mg by mouth daily. Active mirtazapine (REMERON) 30 MG Tab take 30 mg by mouth At bedtime. Active dapsone 100 MG Tab take 100 mg by mouth daily. Active furOSEmide 20 MG Tab take 20 mg by mouth daily. Active POTASSIUM CHLORIDE PO take 10 mg by mouth daily. Active spironolactone 25 MG Tab take 12.5 mg by mouth daily. Active atenolol 50 MG Tab take 50 mg by mouth 2 times daily. Active methylphenidate 10 MG Tab take 10 mg by mouth 2 times daily. Active OxyCODONE HCl 10 MG Tab take 10 mg by mouth daily. Active OxyCODONE HCl (OXYCONTIN PO) take 20 mg by mouth 2 times daily. Active LORazepam 0.5 MG Tab take 0.5 mg by mouth 3 times daily. Active docusate 100 MG Cap take 100 mg by mouth 3 times daily as needed. Ac tive Vitamin D3 2000 UNITS Cap take 1,000 Units by mouth daily. Active Biotin 2500 MCG Cap take 2,500 mcg by mouth daily. Active Probiotic Product (PROBIOTIC & ACIDOPHILUS EX ST PO) take by mouth daily. bifidobateriumanimalis B3-12 1.5 billion cells by neves - take 1 pill daily Active Magnesium Hydroxide (MILK OF MAGNESIA PO) take 1 Units by mouth daily. Active acetaminophen 325 MG tablet take 325 mg by mouth every 4 hours. Active bismuth subsalicylate 262 MG/15ML Suspension take 30 mL by mouth every 6 hours as needed. Active ondansetron 8 MG Tab take 8 mg by mouth every 8 hours as needed for Nausea. Active levothyroxine 50 MCG Tab take 50 mcg by mouth daily. Active estrogens conjugated 0.625 MG/GM Cream 0.5 g by Vaginal route twice a week. Active amoxicillin-cla vulanate 875-125 MG Tab take 1 tablet by mouth every 12 hours. Active Nebulizer Misc by Unknown route. Active albuterol 1.25 MG/3ML Nebu Soln 1.25 mg by Nebulization route every 6 hours as needed. Active Nebulizer Misc by Unknown route 2 times daily. performist 20mcg/2ml inhale one vial in nebulizer twice daily Active Nebulizer Misc by Unknown route 2 times daily. Budesomide 0.5/2ml inhale one vial in nebulizer twice zuri A ctive Active Problems Problem Noted Date Diagnosed Date Hodgkin lymphoma 10/26/2014 Peripheral neuropathy due to chemotherapy 2014 Pneumonitis 10/26/2014 Family History Medical History Relation Name Comments Obesity Brother Allergy - Severe Father Gout Father Heart Disease - Other Maternal Grandfather Heart Disease - Other Maternal Grandmother Thyroid Disease Maternal Grandmother Hypertension Mother Heart Disease - Other Paternal Grandfather Diabetes Paternal Grandmother Heart Disease - Other Paternal Grandmother Relation Name Status Comments Brother Father Maternal Grandfather Maternal Grandmother Mother Paternal Grandfather Paternal Grandmother Social History Tobacco Use Types Packs/Day Years Used Date Smoking Tobacco: Never Assessed Comments Unknown Sex and Gender Information Value Date Recorded Sex Assigned at Not on file Legal Sex Female 12:53 PM EDT Gender Identity Not on file Sexual Orientation Not on file Last Filed Vital Signs Vital Sign Reading Time Taken Comments Blood Pressure 94/64 10/22/2014 9:00 AM EDT Pulse 98 10/22/2014 9:00 AM EDT Temperature 36.8 C (98.2 F) 10/22/2014 9:00 AM EDT Respiratory Rate - - Oxygen Saturation 94% 10/22/2014 9:00 AM EDT Inhaled Oxygen Concentration - - Weight 112.9 kg (248 lb 12.8 oz) 10/22/2014 9:00 AM EDT Height 182.9 cm (6') 10/22/2014 9:00 AM EDT Body Mass Index 33.74 10/22/2014 9:00 AM EDT Plan of Treatment Health Maintenance Due Date Last Done Comments HEPATITIS C VIRUS SCREENING 1982 HIV SCREENING DISCUSSION 1997 CERVICAL CANCER SCREENING DISCUSSION 07/12/2003 LIPID SCREENING 2022 MAMMOGRAM SCREENING DISCUSSION 2022 COVID-19 VACCINE ( season) 2023 TETANUS 03/11/2024 03/11/2014, 02/19, 03/11/2014, Additional history exists INFLUENZA VACCINE (Season Ended) 2024 12/16/2014, 12/21/2013 TDAP (ADULT) Completed 03/11/2014, 10/14/2013 HEP B VACCINE Completed 06/16/2014, 04/2013, 10/14/2013, Additional history exists PNEUMOCOCCAL VACCINE SERIES Aged Out 05/20, 03/11/2014, 12/21/2013, Additional history exists No longer eligible based on patient's age to complete this topic HPV VACCINE Aged Out No longer eligi ble based on patient's age to complete this topic Insurance MEDICARE A AND B MEDICAID
--- OUTSIDE RECORDS SUMMARY | 2024-08-12 15:08 | XMS_ITS | Encounter Summary ---
Author Organization [facility] Address [address] [place] [address] Care Team Providers Care Reamer Hand Name Role Phone Bee Moya MD Primary Care Provider [phone] Bee Moya MD Unavailable [phone] Encounter Details Date Type Department Care Team (Late Contact Info) Description 08/12/2024 Bamboo flowsheet [facility] OB [address] [facility] [address] Cristine Azul, MOBILE APPLICATION ARCHITECT [address] [place] [address] [place] [address] Social History Tobacco Use Types Packs/Day Years [...] 09/09/2024 10:20 AM EDT Office Visit [facility] OB [address] [place], [place] [address] [address] Cristine Azul, MOBILE APPLICATION ARCHITECT [address] [place] [address] 09/10/2024 9:30 AM EDT Office Visit [facility] IM [address] [place] [address] Lina Charles, MOBILE APPLICATION ARCHITECT [address] [place] [address] 08/19/2025 11:00 AM EDT Office Visit [facility] BCP OB [address] [facility] [place] [address] Sebastian Montiel, DO [address] [facility] [place] [address] documented as of this encounter Visit Diagnoses Not on filedocumented in this encounter Additional Health Concerns Assessment Noted Time PHQ-9 Depression Total Score: 5 06/09/19 25 8:00 AM EDT documented as of this encounter Care Teams Reamer Hand Relationship Specialty Start Date End Date Bee Moya MD [address] [place] [address] PCP - General Internal Medicine 06/26/22 Bee Moya MD [address] [place] [address] PCP - [employer] 10/19/21 Dr. Ledezma Referring Physician Oncology 08/08/23 Dr. Elliott Referring Physician Cardiology 08/08/23 Dr. Clemons Referring Physician Rheumatology 08/08/23 Dr. Becerril Referring Physician Pulmonary Disease 08/08/23 Dr. Franco Referring Physician Otolaryngology 08/08/23 Emely Bonilla Referring Physician Palliative Medicine 08/08/23 documented as of this encounter
--- OUTSIDE RECORDS SUMMARY | 2024-08-12 15:08 | XMS_ITS | Encounter Summary ---
Author Organization [facility] Address [address] [place] [address] Care Team Providers Care Laborer Wrecking And Salvaging Name Role Phone Bee Moya MD Primary Care Provider [phone] Bee Moya MD Unavailable [phone] Encounter Details Date Type Department Care Team ([facility] Contact Info) Description 07/17/2022 Clinisync Result Encounter N[facility] External Department Unsolicited [...] Upcoming Encounters Date Type Department Care Team ([facility] Contact Info) Description 09/09/2024 10:20 AM EDT Office Visit [facility] OB [address] [place] [address] Cristine Azul, CABLE TECHNICIAN [address] [facility] [place] [address] 09/10/2024 9:30 AM EDT Office Visit [facility] IM [address] [place] [phone] Lina Charles CABLE TECHNICIAN [address] [facility] [address] [place], [place] [id number] 08/19/2025 11:00 AM EDT Office Visit [facility] B[facility] OB [address] [place] [address] Sebastian Montiel, DO [address] [facility] [place] [address] documented as of this encounter Procedures Procedure Name Priority Date/Time Associated Diagnosis Comments CT CHEST WO IV CONTRAST 07/17/2022 1:18 PM EDT documented in this encounter Results * CT chest wo IV contrast (07/17/2022 1:18 PM EDT) Anatomical Region Laterality Modality Body, Chest Computed Tomogra phy 07/17/2022 1:18 PM EDT Narrative 07/18/2022 9:00 AM EDT * * *Final Report* * * DATE OF EXAM: Jul 17 2022 1:18PM [facility] 0541 - CT CHEST WO [...] fatty infiltration. No evidence of adrenal mass.. Credit Control Clerk (topogram) images: No additional findings. IMPRESSION: 1. [...] Postradiation changes in the bilateral lung rodriguez. Healthcare Educator: DEDE Transcribe Date/Time: Jul 18 2022 8:19A Dictated by : YOGESH DAVIS MD This examination was interpreted and the report reviewed and electronically signed by: YOGESH DAVIS MD on Jul 18 2022 8:58AM EST [id number]^SI^ACN * * *Final Report* * * DATE OF EXAM: Jul 17 2022 1:18PM [facility] 0541 - CT CHEST WO [...] fatty infiltration. No evidence of adrenal mass.. Credit Control Clerk (topogram) images: No additional findings. IMPRESSION: 1. [...] Postradiation changes in the bilateral lung rodriguez. Healthcare Educator: DEDE Transcribe Date/Time: Jul 18 2022 8:19A Dictated by : YOGESH DAVIS MD This examination was interpreted and the report reviewed and electronically signed by: YOGESH DAVIS MD on Jul 18 2022 8:58AM EST [id number]^[email or web address]^SI^ACN * * *Final Report* * * DATE OF EXAM: Jul 17 2022 1:18PM [facility] 0541 - CT CHEST WO [...] fatty infiltration. No evidence of adrenal mass.. Credit Control Clerk (topogram) images: No additional findings. IMPRESSION: 1. [...] Postradiation changes in the bilateral lung rodriguez. Healthcare Educator: DEDE Transcribe Date/Time: Jul 18 2022 8:19A Dictated by : YOGESH DAVIS MD This examination was interpreted and the report reviewed and electronically signed by: YOGESH DAVIS MD on Jul 18 2022 8:58AM EST [id number]^SI^ACN Procedure Note Radiology, Radiologist, - 07/23/2022 * * *Final Report* * * DATE OF EXAM: Jul 17 2022 1:18PM [facility] 0541 - CT CHEST WO [...] fatty infiltration. No evidence of adrenal mass.. Credit Control Clerk (topogram) images: No additional findings. IMPRESSION: 1. [...] Postradiation changes in the bilateral lung rodriguez. Healthcare Educator: DEDE Transcribe Date/Time: Jul 18 2022 8:19A Dictated by : YOGESH DAVIS MD This examination was interpreted and the report reviewed and electronically signed by: YOGESH DAVIS MD on Jul 18 2022 8:58AM EST [id number]^[email or web address]^SI^ACN * * *Final Report* * * DATE OF EXAM: Jul 17 2022 1:18PM [facility] 0541 - CT CHEST WO [...] fatty infiltration. No evidence of adrenal mass.. Credit Control Clerk (topogram) images: No additional findings. IMPRESSION: 1. [...] Postradiation changes in the bilateral lung rodriguez. Healthcare Educator: PSCB Transcribe Date/Time: Jul 18 2022 8:19A Dictated by : YOGESH DAVSI MD This examination was interpreted and the report reviewed and electronically signed by: YOGESH DAVIS MD on Jul 18 2022 8:58AM EST [id number]^[email or web address]^SI^ACN * * *Final Report* * * DATE OF EXAM: Jul 17 2022 1:18PM [place] [address] - CT CHEST WO IVCON / PROCEDURE [...] fatty infiltration. No evidence of adrenal mass.. Credit Control Clerk (topogram) images: No additional findings. IMPRESSION: 1. [...] Postradiation changes in the bilateral lung rodriguez. Healthcare Educator: [facility] Transcribe Date/Time: Jul 18 2022 8:19A Dictated by : YOGESH DAVIS MD This examination was interpreted and the report reviewed and electronically signed by: YOGESH DAVIS MD on Jul 18 2022 8:58AM EST [id number]^[email or web address]^SI^ACN Bee Moya MD IMG CT PROCEDURES Final Result documented in this encounter Visit Diagnoses Not on filedocumented in this encounter Care Teams Laborer Wrecking And Salvaging Relationship Specialty Start Date End Date Bee Moya MD [address] [place] [address] PCP - General Internal Medicine 06/26/22 Bee Moya MD [address] [place] [address] PCP - [employer] 10/19/21 Dr. Ledezma Referring Physician Oncology 08/08/23 Dr. Elliott Referring Physician Cardiology 08/08/23 Dr. Clemons Referring Physician Rheumatology 08/08/23 Dr. Becerril Referring Physician Pulmonary Disease 08/08/23 Dr. Franco Referring Physician Otolaryngology 08/08/23 Emely Bonilla Referring Physician Palliative Medicine 08/08/23 documented as of this encounter
--- OUTSIDE RECORDS SUMMARY | 2024-08-12 15:08 | XMS_ITS | Encounter Summary ---
Author Organization [facility] Address [address] [place] [address] Care Team Providers Care Customer Experience Analyst Name Role Phone Bee Moya MD Primary Care Provider [phone] Bee Moya MD Unavailable [phone] Encounter Details Date Type Department Care Team (Late st Contact Info) Description 08/14/2022 Clinisync Result Encounter [facility] External Department Unsolicited Bee Moya MD [address] [facility] [place] [address] Social History Tobacco Use Types Packs/Day [...] [address] [facility] [place] [address] Cristine Azul, SAMANTHA [address] [facility] [place] [address] 09/10/2024 9:30 AM EDT Office Visit [facility] IM [address] [place] [phone] Lina Charles, DEPUTY OF COUNTER INTELLIGENCE [address] [facility] [address] [place], [place] [id number] 08/19/2025 11:00 AM EDT Office Visit [facility] OB [address] [facility] [place] [address] Sebastian Montiel, DO [address] [facility] [place] [address] documented as of this encounter Procedures Procedure Name Priority Date/Time Associated Diagnosis Comments NM PET/CT SKULL-THIGH SUBQ 08/14/2022 1:45 PM EDT documented in this encounter Results * NM PET/CT SKULL-THIGH SUBQ (08/14/2022 1:45 PM EDT) Anatomical Region Laterality Modality Other 08/14/2022 1:45 PM EDT Narrative 08/14/2022 3:12 PM EDT * * *Final Report* * [...] any questions regarding this interpretation, please call [phone]. If you are unable to reach us at the number above, please feel free to contact [facility] at [phone]. [id number]^AGFA_IDC^SI^ACN Procedure Note Radiology, Radiologist, - 08/14/2022 * * *Final Report* * [...] any questions regarding this interpretation, please call [phone]. If you are unable to reach us at the number above, please feel free to contact [facility] at [phone]. [id number]^AGFA_IDC^SI^ACN us Bee Moya MD [facility] Final Result documented in this encounter Visit Diagnoses Not on filedocumented in this encounter Care Teams Customer Experience Analyst Relationship Specialty Start Date End Date Bee Moya MD [address] [place] [address] PCP - General Internal Medicine 06/26/22 Bee Moya MD [address] [place] [address] PCP - [employer] 10/19/21 Dr. Ledezma Referring Physician Oncology 08/08/23 Dr. Elliott Referring Physician Cardiology 08/08/23 Dr. Clemons Referring Physician Rheumatology 08/08/23 Dr. Becerril Referring Physician Pulmonary Disease 08/08/23 Dr. Franco Referring Physician Otolaryngology 08/08/23 Emely Bonilla Referring Physician Palliative Medicine 08/08/23 documented as of this encounter
--- OUTSIDE RECORDS SUMMARY | 2024-08-12 15:08 | XMS_ITS | Encounter Summary ---
Author Organization [facility] Address [address] [facility] [place] [address] Care Team Providers Care Cigarette Examiner Name Role Phone Bee Moya MD Primary Care Provider [phone] Bee Moya MD Unavailable [phone] Encounter Details Date Type Department Care Team (Late Contact Info) Description 05/31/2023 Clinisync Result Encounter [facility] External Department Unsolicited [...] EDT Office Visit [facility] [address] [facility] [place] [address] Cristine Azul NP [address] [place] [address] 09/10/2024 9:30 AM EDT Office Visit [facility] IM [address] [place] [address] Lina Charles, CHIEF STATION ENGINEER [address] [place] [address] 08/19/2025 11:00 AM EDT Office Visit [facility] B[facility] OB [address] [facility] [place] [address] Sebastian Montiel, DO [address] [facility] [place] [address] documented as of this encounter Procedures Procedure Name Priority Date/Time Associated Diagnosis Comments XR CHEST 2V FRONTAL/LAT 05/31/2023 3:43 PM EDT [facility] SARS-COV-2,INFLUENZ A A/B,RSV RAPID Routine 05/31/2023 3:30 PM EDT documented in this encounter Results * XR CHEST 2V FRONTAL/LAT (05/31/2023 3:43 PM EDT) Anatomical Region Laterality Modality Other 05/31/2023 3:43 PM EDT Narrative 05/31/2023 3:55 PM EDT * * *Final Report* * * DATE OF EXAM: May 31 2023 3:43PM [id number] - XR CHEST 2V FRONTAL/LAT / PROCEDURE REASON: Wheezing * * * * Physician Interpretation * * * * EXAMINATION: CHEST RADIOGRAPH (2 VIEW FRONTAL and LATERAL) CLINICAL HISTORY: Wheezing MQ: XC2_6 EXAM DATE/TIME: 05/31/2023 3:43 PM COMPARISON: PET/CT scan dated 05/20/23; chest x-ray dated 04/19/23 RESULT: Lines, tubes, and devices: None. Lungs and pleura: Left perihilar consolidative opacities most likely related to post radiation change, stable. Subpleural nodularity in the left upper lobe, stable.. No pleural effusion. No pneumothorax. Cardiomediastinal silhouette: Stable Bones and soft tissues: Degenerative changes are present within the thoracic spine. IMPRESSION: 1. No interval change since 04/19/23. 2. Postradiation changes in the left lung, stable. Soaking Pit Operator: DEDE Transcribe Date/Time: May 31 2023 3:49P Dictated by : YOGESH DAVIS MD This examination was interpreted and the report reviewed and electronically signed by: YOGESH DAVIS MD on May 31 2023 3:53PM EST [id number]^AGFA_IDC^SI^ACN Procedure Note Radiology, Radiologist, - 05/31/2023 * * *Final Report* * * DATE OF EXAM: May 31 2023 3:43PM [id number] - XR CHEST 2V FRONTAL/LAT / PROCEDURE REASON: Wheezing * * * * Physician Interpretation * * * * EXAMINATION: CHEST RADIOGRAPH (2 VIEW FRONTAL and LATERAL) CLINICAL HISTORY: Wheezing MQ: XC2_6 EXAM DATE/TIME: 05/31/2023 3:43 PM COMPARISON: PET/CT scan dated 05/20/23; chest x-ray dated 04/19/23 RESULT: Lines, tubes, and devices: None. Lungs and pleura: Left perihilar consolidative opacities most likely related to post radiation change, stable. Subpleural nodularity in the left upper lobe, stable.. No pleural effusion. No pneumothorax. Cardiomediastinal silhouette: Stable Bones and soft tissues: Degenerative changes are present within the thoracic spine. IMPRESSION: 1. No interval change since 04/19/23. 2. Postradiation changes in the left lung, stable. Soaking Pit Operator: DEDE Transcribe Date/Time: May 31 2023 3:49P Dictated by : YOGESH DAVIS MD This examination was interpreted and the report reviewed and electronically signed by: YOGESH DAVIS MD on May 31 2023 3:53PM EST [id number]^AGFA_IDC^SI^ACN Generic External Data Provider [facility] Final Result * S SARS-COV-2,INFLUENZA A/B,RSV RAPID (05/31/2023 3:30 PM EDT) COVID AND INFLUENZA A/B AND RSV NAAT, ROUTINE COVID 19 RESULT: Not detected [facility] COVID AND INFLUENZA A/B AND RSV NAAT, ROUTINE The method used is RT-PCR or an equivalent NAAT method. [facility] COVID AND INFLUENZA A/B AND RSV NAAT, ROUTINE [facility] COVID AND INFLUENZA A/B AND RSV NAAT, ROUTINE Reference Range (the expected result in uninfected individuals): Not detected [facility] COVID AND INFLUENZA A/B AND RSV NAAT, ROUTINE [facility] COVID AND INFLUENZA A/B AND RSV NAAT, ROUTINE [facility] COVID AND INFLUENZA A/B AND RSV NAAT, ROUTINE INFLUENZA A PCR: Not detected [facility] COVID AND INFLUENZA A/B AND RSV NAAT, ROUTINE INFLUENZA B PCR: Not detected [facility] COVID AND INFLUENZA A/B AND RSV NAAT, ROUTINE RSV PCR: Not detected [facility] 05/31/2023 3:30 PM EDT 05/31/2023 10:09 PM EDT Narrative [facility] - 06/01/2023 1:00 AM EDT Original Ordering Provider: ROSALES LUCERO us Generic External Data Provider [facility] F inal Result Performing Organization Address City/State/[facility] Co de Phone Number [facility] [address] [address] [facility] documented in this encounter Visit Diagnoses Not on filedocumented in this encounter Care Teams Cigarette Examiner Relationship Specialty Start Date End Date Bee Moya MD [address] [facility] [place] [address] PCP - General Internal Medicine 06/26/22 Bee Moya MD [address] [facility] [place] [address] PCP - [employer] 10/19/21 Dr. Ledezma Referring Physician Oncology 08/08/23 Dr. Elliott Referring Physician Cardiology 08/08/23 Dr. Clemons Referring Physician Rheumatology 08/08/23 Dr. Becerril Referring Physician Pulmonary Disease 08/08/23 Dr. Franco Referring Physician Otolaryngology 08/08/23 Emely Bonilla Referring Physician Palliative Medicine 08/08/23 documented as of this encounter
--- OUTSIDE RECORDS SUMMARY | 2024-08-12 15:08 | XMS_ITS | Encounter Summary ---
Author Organization [facility] Address [address] [facility] [place] [address] Care Team Providers Care Axminster Weaver Name Role Phone Bee Moya MD Primary Care Provider [phone] Bee Moya MD Unavailable [phone] Encounter Details Date Type Department Care Team (Late Contact Info) Description 07/19/2023 Clinisync Result Encounter [facility] External Department Unsolicited [...] Upcoming Encounters Date Type Department Care Team ([facility] Contact Info) Description 09/09/2024 10:20 AM EDT Office Visit [facility] OB [address] [facility] [place] [address] Cristine Azul NP [address] [place] [address] 09/10/2024 9:30 AM EDT Office Visit [facility] IM [address] [place] [address] Lina Charles, VIDEO GAME TECHNICIAN [address] [place] [address] 08/19/2025 11:00 AM EDT Office Visit [facility] B[facility] OB [address] [facility] [place] [address] Sebastian Montiel, DO [address] [facility] [place] [address] documented as of this encounter Procedures Procedure Name Priority Date/Time Associated Diagnosis Comments XR ESOPHAGRAM 07/19/2023 2:16 PM EDT documented in this encounter Results * XR ESOPHAGRAM (07/19/2023 2:16 PM EDT) Anatomical Region Laterality Modality Radiographic Asmita ging 07/19/2023 2:16 PM EDT Narrative 07/19/2023 2:36 PM EDT * * *Final Report* * [...] available throughout the remainder of the procedure. IMPRESSION: NORMAL ESOPHAGRAM. Aircraft Assembler: DEDE Transcribe Date/Time: Jul 19 2023 2:16P Dictated by : ADDIS SUTTON MD This examination was interpreted and the report reviewed and electronically signed by: RUPERTO PLASCENCIA MD on Jul 19 2023 2:33PM EST [id number]^AGFA_IDC^SI^ACN Procedure Note Radiology, Radiologist, - 07/19/2023 * * *Final Report* * [...] available throughout the remainder of the procedure. IMPRESSION: NORMAL ESOPHAGRAM. Aircraft Assembler: [facility] Transcribe Date/Time: Jul 19 2023 2:16P Dictated by : ADDIS SUTTON MD This examination was interpreted and the report reviewed and electronically signed by: RUPERTO PLASCENCIA MD on Jul 19 2023 2:33PM EST [id number]^AGFA_IDC^SI^ACN us Generic External Data Provider IMG XR PROCEDURES Final Result documented in this encounter Visit Diagnoses Not on filedocumented in this encounter Care Teams Axminster Weaver Relationship Specialty Start Date End Date Bee Moya MD [address] [place] [address] PCP - General Internal Medicine 06/26/22 Bee Moya MD [address] [place] [address] PCP - [employer] 10/19/21 Dr. Ledezma Referring Physician Oncology 08/08/23 Dr. Elliott Referring Physician Cardiology 08/08/23 Dr. Clemons Referring Physician Rheumatology 08/08/23 Dr. Becerril Referring Physician Pulmonary Disease 08/08/23 Dr. Franco Referring Physician Otolaryngology 08/08/23 Emely Bonilla Referring Physician Palliative Medicine 08/08/23 documented as of this encounter
--- OUTSIDE RECORDS SUMMARY | 2024-08-12 15:08 | XMS_ITS | Encounter Summary ---
Author Organization [facility] Address [address] [place] [address] Care Team Providers Care Credit Rating Inspector Name Role Phone Bee Moya MD Primary Care Provider [phone] Bee Moya MD Unavailable [phone] Reason for Visit * Reason Comments Med Refill Encounter Details Date Type Department Care Team (Late Contact Info) Description 08/10/2024 Refill [facility] [address] [place] [phone] Bee Moya MD [address] [facility] [address] [place], [place] [address] Dermatitis Social History Tobacco Use Types Packs/Day Years [...] Visit [facility] BCP OB [address] [place] [address] Cristine Azul, GRAB DRIVER [address] [place] [address] 09/10/2024 9:30 AM EDT Office Visit [facility] IM [address] [facility] [place] [address] Lina Charles, GRAB DRIVER [address] [facility] [address] 08/19/2025 11:00 AM EDT Office Visit [facility] BCP OB [address] [facility] [place] [address] Sebastian Montiel, DO [address] [facility] [place] [address] documented as of this encounter Visit Diagnoses Diagnosis Dermatitis Contact dermatitis and other eczema, due to unspecified cause documented in this encounter Additional Health Concerns Assessment Noted Time PHQ-9 Depression Total Score: 5 06/09/19 25 8:00 AM EDT documented as of this encounter Care Teams Credit Rating Inspector Relationship Specialty Start Date End Date Bee Moya MD [address] [facility] [place] [address] PCP - General Internal Medicine 06/26/22 Bee Moya MD [address] [facility] [address] PCP - [employer] 10/19/21 Dr. Ledezma Referring Physician Oncology 08/08/23 Dr. Elliott Referring Physician Cardiology 08/08/23 Dr. Clemons Referring Physician Rheumatology 08/08/23 Dr. Becerril Referring Physician Pulmonary Disease 08/08/23 Dr. Franco Referring Physician Otolaryngology 08/08/23 Emely Bonilla Referring Physician Palliative Medicine 08/08/23 documented as of this encounter
--- OUTSIDE RECORDS SUMMARY | 2024-08-12 15:08 | XMS_ITS | Encounter Summary ---
Author Organization [facility] Address [address] [facility] [place] [address] Care Team Providers Care Bakery Team Leader Name Role Phone Bee Moya MD Primary Care Provider [phone] Bee Moya MD Unavailable [phone] Encounter Details Date Type Department Care Team (Late Contact Info) Description 01/15/2024 Clinisync Result Encounter [facility] External Department Unsolicited Provider, Generic External Data Social History Tobacco Use Types Packs/Day Years Used Date Smoking Tobacco: Former Cigarettes Smokeless Tobacco: Never Alcohol Use Standard Drinks/Week Comments Yes 0 (1 standard drink = 0.6 oz pur e alcohol) PHQ-2 Answer Date Recorded Patient Health Questionnaire-2 Score 1 11/28/2023 Comments Unknown Sex and Gender Information Value Date Recorded Sex Assigned at Not on file Legal Sex Female 8:26 PM EDT Gender Identity Not on file Sexual Orientation Not on file documented as of this encounter Plan of Treatment Upcoming Encounters Date Type Department Care Team (Late Contact Info) Description 09/09/2024 10:20 AM EDT Office Visit [facility] OB [address] [facility] [address] Cristine Azul NP [address] [place] [address] 09/10/2024 9:30 AM EDT Office Visit [facility] IM [address] [place] [address] Lina Charles, PATENT LEATHER SORTER [address] [place] [address] 08/19/2025 11:00 AM EDT Office Visit [facility] BCP OB [address] [place] [address] Sebastian Montiel, DO [address] [facility] [place] [address] documented as of this encounter Procedures Procedure Name Priority Date/Time Associated Diagnosis Comments NM LUNG VENT / PERF VQ 01/15/2024 11:18 AM EST documented in this encounter Results * NM LUNG VENT / PERF VQ (01/15/2024 11:18 AM EST) Anatomical Region Laterality Modality Other 01/15/2024 11:1 8 AM EST Narrative 01/15/2024 11:55 AM EST * * *Final Report* * * DATE OF EXAM: Jan 15 2024 11:18AM [facility] 0032 - [place] LUNG VENT / PERF [...] PE protocol chest CT may be performed. Shaft Sinker: PSCEdwin Transcribe Date/Time: Jan 15 2024 11:50A Dictated by : CAIO HINKLE MD This examination was interpreted and the report reviewed and electronically signed by: CAIO HINKLE MD on Jan 15 2024 11:53AM EST [id number]^AGFA_[email or web address]^SI^ACN Procedure Note Radiology, Radiologist, - 01/15/2024 * * *Final Report* * * DATE OF EXAM: Jan 15 2024 11:18AM [facility] 0032 - [place] LUNG VENT / PERF VQ / PROCEDURE REASON: Other secondary pulmonary hypertension (HCC) * * * * Physician Interpretation * * * * LUNG SCAN CLINICAL HISTORY: Shortness of breath. TECHNIQUE: 0.8 millicuries of Tc-99m DTPA aerosol was inhaled. 5.3 mCi of Tc-99m MAA was administered IV. Planar imaging of the lungs in multiple views (anterior, posterior, bilateral oblique and lateralviews). RESULT: Matched ventilation/perfusion findings- diffusely decreased uptake [...] PE protocol chest CT may be performed. Shaft Sinker: DEDE Transcribe Date/Time: Jan 15 2024 11:50A Dictated by : CAIO HINKLE MD This examination was interpreted and the report reviewed and electronically signed by: CAIO HINKLE MD on Jan 15 2024 11:53AM EST [id number]^AGFA_IDC^SI^ACN Generic External Data Provider [facility] Final Result documented in this encounter Visit Diagnoses Not on filedocumented in this encounter Additional Health Concerns Assessment Noted Time PHQ-9 Depression Total Score: 5 11/28/19 24 8:00 AM EDT documented as of this encounter Care Teams Bakery Team Leader Relationship Specialty Start Date End Date Bee Moya MD [address] [facility] [place] [address] PCP - General Internal Medicine 06/26/22 Bee Moya MD [address] [facility] [address] [place], [place] [address] PCP - [employer] 10/19/21 Dr. Ledezma Referring Physician Oncology 08/08/23 Dr. Elliott Referring Physician Cardiology 08/08/23 Dr. Clemons Referring Physician Rheumatology 08/08/23 Dr. Becerril Referring Physician Pulmonary Disease 08/08/23 Dr. Franco Referring Physician Otolaryngology 08/08/23 Emely Bonilla Referring Physician Palliative Medicine 08/08/23 documented as of this encounter
--- OUTSIDE RECORDS SUMMARY | 2024-08-12 15:08 | XMS_ITS | Clinical Summary ---
Author Organization [facility] Address [address] [place] [address] Care Team Providers Care Career Development Facilitator Name Role Phone Bee Moya MD Primary Care Provider [phone] Allergies Active Allergy Reactions Criticality Noted Date Comments Chlorhexidine 07/12/2017 Other reaction(s): Unknown Sulfa Antibiotics 10/18/2010 Other reaction(s): Unknown Medications acetaminophen (TYLENOL) 325 MG tablet Take 325 mg by mouth Active oxyCODONE HCl (OXY-IR) 10 MG immediate release tablet Take 10 mg by mouth.. Active acyclovir (ZOVIRAX) 400 MG tablet 2 times daily 0 08/01/19 18 Active LORazepam (ATIVAN) 0.5 MG tablet take 1 tablet by mouth three times a day if needed 0 07/23/19 18 Active mirtazapine (REMERON) 30 MG tablet 08/15/19 18 Active levothyroxine (SYNTHROID) 50 MCG tablet Take 50 mcg by mouth 05/10/19 18 Active bismuth subsalicylate (PEPTO BISMOL) 262 MG/15ML suspension Take 30 mLs by mouth Active DEXILANT 30 MG CPDR delayed release capsule 0 08/03/19 18 Active ondansetron (ZOFRAN) 8 MG tablet Take 8 mg by mouth Active XARELTO 20 MG TABS tablet 0 08/01/19 18 Active Nebulizer MISC by Unknown route. Active gabapentin (NEURONTIN) 300 MG capsule take 2 capsules by mouth three times a day 1 07/18/19 18 Active albuterol (ACCUNEB) 1.25 MG/3ML nebulizer solution Inhale 1.25 mg into the lungs Active albuterol sulfate HFA 108 (90 Base) MCG/ACT inhaler 2 puffs by Other route 01/26/20 17 Active RESTASIS MULTIDOSE 0.05 % ophthalmic emulsion 08/15/19 18 Active clindamycin-benzo yl peroxide (BENZACLIN) 1-5 % gel Apply topically 02/21/19 18 Active GuaiFENesin (HERBAL EXPEC PO) Take by mouth Active atenolol (TENORMIN) 50 MG tablet take 1 tablet by mouth twice a day 08/30/19 18 Active nivolumab (OPDIVO) 240 MG/24ML SOLN Infuse intravenously every 30 days Active Active Problems No known active problems Family History Medical History Relation Name Comments High Blood Pressure Father Mult Sclerosis Maternal Grandmother Mult Sclerosis Mother Coronary Art Dis Paternal Grandfather Relation Name Status Comments Brother Alive Father Alive Maternal Grandmother Mother Alive Paternal Grandfather Social History Tobacco Use Types Packs/Day Years Used Date Smoking Tobacco: Former Cigarettes 0.5 10 0 08/15/2001 - 08/16/2011 Smokeless Tobacco: Never Tobacco Cessation:Counseling Given: Yes Alcohol Use Standard Drinks/Week Comments Yes 0 (1 standard drink = 0.6 oz pur e alcohol) rarely PHQ-2 Answer Date Recorded PHQ-2 Score 0 05/21/2018 Comments No Sex and Gender Information Value Date Recorded Sex Assigned at Not on file Legal Sex Female 2:32 AM EST Gender Identity Not on file Sexual Orientation Not on file Last Filed Vital Signs Vital Sign Reading Time Taken Comments Blood Pressure 128/84 11/14/2017 9:41 AM EDT Pulse 100 12/10/2011 9:22 AM EDT Temperature 37.3 C (99.1 F) 12/10/2011 9:22 AM EDT Respiratory Rate 25 12/10/2011 9:22 AM EDT Oxygen Saturation - - Inhaled Oxygen Concentration - - Weight 108 kg (238 lb 3.2 oz) 11/14/2017 9:41 AM EDT Height 182.9 cm (6') 11/14/2017 9:41 AM EDT Body Mass Index 32.31 11/14/2017 9:41 AM EDT Plan of Treatment Not on file Insurance MEDICARE MEDICARE MEDICAID [place] Care Teams Career Development Facilitator Relationship Specialty Start Date End Date Bee Moya MD [address] [address] PCP - General Internal Medicine 08/15/17
--- OUTSIDE RECORDS SUMMARY | 2024-08-12 15:08 | XMS_ITS | Encounter Summary ---
Author Organization [facility] Address [address] [facility] [place] [address] Care Team Providers Care Engineer Technician Name Role Phone Bee Moya MD Primary Care Provider [phone] Bee Moya MD Unavailable [phone] Encounter Details Date Type Department Care Team (Late Contact Info) Description 07/10/2023 Clinisync Result Encounter NOMS External Department Unsolicited [...] Encounters Date Type Department Care Team ([facility] Contact Info) Description 09/09/2024 10:20 AM EDT Office Visit [facility] [address] [facility] [place] [address] Cristine Azul NP [address] [place] [address] 09/10/2024 9:30 AM EDT Office Visit [facility] LPS IM [address] [place] [address] Lina Charles, MOUTHPIECE MAKER [address] [place] [address] 08/19/2025 11:00 AM EDT Office Visit [facility] BCP OB [address] [facility] [place] [address] Sebastian Montiel, DO [address] [facility] [place] [address] documented as of this encounter Procedures Procedure Name Priority Date/Time Associated Diagnosis Comments XR MOD BARIUM SWALLOW W SPEECH 07/10/2023 2:12 PM EDT documented in this encounter Results * XR MOD BARIUM SWALLOW W SPEECH (07/10/2023 2:12 PM EDT) Anatomical Region Laterality Modality Other 07/10/2023 2:12 PM EDT Narrative 07/10/2023 3:08 PM EDT * * *Final Report* * [...] PRESENT IN THE NOTES COMPONENT OF EPIC Technology Internship: PSCB Transcribe Date/Time: Jul 10 2023 3:06P Dictated by : ERIC GREENFIELD MD This examination was interpreted and the report reviewed and electronically signed by: ERIC GREENFIELD MD on Jul 10 2023 3:06PM EST [id number]^[email or web address]^SI^ACN Procedure Note Radiology, Radiologist, - 07/10/2023 * * *Final Report* * [...] PRESENT IN THE NOTES COMPONENT OF EPIC Technology Internship: PSCB Transcribe Date/Time: Jul 10 2023 3:06P Dictated by : ERIC GREENFIELD MD This examination was interpreted and the report reviewed and electronically signed by: ERIC GREENFIELD MD on Jul 10 2023 3:06PM EST [id number]^[email or web address]^SI^ACN Generic External Data Provider [facility] Final Result documented in this encounter Visit Diagnoses Not on filedocumented in this encounter Care Teams Engineer Technician Relationship Specialty Start Date End Date Bee Moya MD [address] [facility] [place] [address] PCP - General Internal Medicine 06/26/22 Bee Moya MD [address] [facility] [place] [address] PCP - [employer] 10/19/21 Dr. Ledezma Referring Physician Oncology 08/08/23 Dr. Elliott Referring Physician Cardiology 08/08/23 Dr. Clemons Referring Physician Rheumatology 08/08/23 Dr. Becerril Referring Physician Pulmonary Disease 08/08/23 Dr. Fracno Referring Physician Otolaryngology 08/08/23 Emely Bonilla Referring Physician Palliative Medicine 08/08/23 documented as of this encounter
--- OUTSIDE RECORDS SUMMARY | 2024-08-12 15:08 | XMS_ITS | Encounter Summary ---
Author Organization [facility] Address [address] [facility] [place] [address] Care Team Providers Care Work Distributor Name Role Phone Bee Moya MD Primary Care Provider Bee Moya MD Unavailable [phone] Encounter Details Date Type Department Care Team (Late Contact Info) Description 01/03/2024 Clinisync Result Encounter NOMS External Department Unsolicited [...] Visit [facility] BCP OB [address] [facility] [place] [address] Cristine Azul NP [address] [place] [address] 09/10/2024 9:30 AM EDT Office Visit [facility] LPS IM [address] [place] [address] Lina Charles, PROGRAMMER [address] [place] [address] 08/19/2025 11:00 AM EDT Office Visit [facility] BCP OB [address] [facility] [place] [address] Sebastian Montiel, DO [address] [facility] [place] [address] documented as of this encounter Procedures Procedure Name Priority Date/Time Associated Diagnosis Comments US CHEST EFFUSION SURVEY 01/03/2024 1:40 PM EST documented in this encounter Results * US CHEST EFFUSION SURVEY (01/03/2024 1:40 PM EST) Anatomical Region Laterality Modality Other 01/03/2024 1:40 PM EST Narrative 01/05/2024 10:42 PM EST * * *Final Report* * * DATE OF EXAM: Jan 03 2024 1:40PM [facility] 1234 - US CHEST EFFUSION SURVEY [...] pleural effusion and small LEFT pleural effusion. Music Engraver: PSCB Transcribe Date/Time: Jan 05 2024 10:39P Dictated by : FIORELLA RIVERA DO This examination was interpreted and the report reviewed and electronically signed by: FIORELLA RIVERA DO on Jan 05 2024 10:40PM EST [id number]^[email or web address]^SI^ACN Procedure Note Radiology, Radiologist, MD - 01/05/2024 * * *Final Report* * * DATE OF EXAM: Jan 03 2024 1:40PM [facility] 1234 - US CHEST EFFUSION SURVEY [...] pleural effusion and small LEFT pleural effusion. Music Engraver: DEDE Transcribe Date/Time: Jan 05 2024 10:39P Dictated by : FIORELLA RIVERA DO This examination was interpreted and the report reviewed and electronically signed by: FIORELLA RIVERA DO on Jan 05 2024 10:40PM EST [id number]^AGFA_IDC^SI^ACN us Generic External Data Provider [facility] Final Result documented in this encounter Visit Diagnoses Not on filedocumented in this encounter Additional Health Concerns Assessment Noted Time PHQ-9 Depression Total Score: 5 11/28/19 24 8:00 AM EDT documented as of this encounter Care Teams Work Distributor Relationship Specialty Start Date End Date Bee Moya MD [address] [facility] [place] [address] PCP - General Internal Medicine 06/26/22 Bee Moya MD [address] [facility] [place] [address] PCP - [employer] 10/19/21 Dr. Ledezma Referring Physician Oncology 08/08/23 Dr. Elliott Referring Physician Cardiology 08/08/23 Dr. Clemons Referring Physician Rheumatology 08/08/23 Dr. Becerril Referring Physician Pulmonary Disease 08/08/23 Dr. Franco Referring Physician Otolaryngology 08/08/23 Emely Bonilla Referring Physician Palliative Medicine 08/08/23 documented as of this encounter
--- OUTSIDE RECORDS SUMMARY | 2024-08-12 15:08 | XMS_ITS | Encounter Summary ---
Author Organization [facility] Address [address] [place] [address] Care Team Providers Care Business Analysis Specialist Name Role Phone Bee Moya MD Primary Care Provider [phone] Bee Moya MD Unavailable [phone] Encounter Details Date Type Department Care Team (Late Contact Info) Description 01/28/2023 Clinisync Result Encounter NOMS External Department Unsolicited [...] EDT Office Visit [facility] BCP OB [address] [place] [address] Cristine Azul NP [address] [place] [address] 09/10/2024 9:30 AM EDT Office Visit [facility] LPS IM [address] [place] [address] Lina Charles, PATIENT FINANCIAL COUNSELOR [address] [place] [address] 08/19/2025 11:00 AM EDT Office Visit [facility] BCP OB [address] [facility] [place] [address] Sebastian Montiel, DO [address] [facility] [place] [address] documented as of this encounter Procedures Procedure Name Priority Date/Time Associated Diagnosis Comments NM PET/CT SKULL-THIGH SUBQ 01/28/2023 3:05 PM EST documented in this encounter Results * NM PET/CT SKULL-THIGH SUBQ (01/28/2023 3:05 PM EST) Anatomical Region Laterality Modality Other 01/28/2023 3:05 PM EST Narrative 01/29/2023 12:57 PM EST * * *Final Report* * [...] or sclerotic lesions to suggest metastases. - IMPRESSION: 1. NECK: No FDG avid neoplastic [...] any questions regarding this interpretation, please call [phone]. If you are unable to reach us at the number above, please feel free to contact [facility] at [phone]. [id number]^[email or web address]^SI^ACN Procedure Note Radiology, Radiologist, - 01/29/2023 * * *Final Report* * [...] or sclerotic lesions to suggest metastases. - IMPRESSION: 1. NECK: No FDG avid neoplastic process. No mass, adenopathy, or fluidcollection. 2. CHEST: No FDG avid neoplastic process. No mass, adenopathy, or fluidcollection. Interval decrease in size of the small left pleural effusion. 3. ABDOMEN/PELVIS: No FDG avid neoplastic process. No mass, adenopathy, or fluidcollection. 4. EXTREMITIES/SKELETON: No FDG avid osseous process. [...] any questions regarding this interpretation, please call [phone]. If you are unable to reach us at the number above, please feel free to contact [facility] at [phone]. [id number]^AGFA_IDC^SI^ACN us Generic External Data Provider [facility] Final Result documented in this encounter Visit Diagnoses Not on filedocumented in this encounter Care Teams Business Analysis Specialist Relationship Specialty Start Date End Date Bee Moya MD [address] [facility] [place] [address] PCP - General Internal Medicine 06/26/22 Bee Moya MD [address] [place] [address] PCP - [employer]et[employer] 10/19/21 Dr. Ledezma Referring Physician Oncology 08/08/23 Dr. Elliott Referring Physician Cardiology 08/08/23 Dr. Clemons Referring Physician Rheumatology 08/08/23 Dr. Becerril Referring Physician Pulmonary Disease 08/08/23 Dr. Franco Referring Physician Otolaryngology 08/08/23 Emely Bonilla Referring Physician Palliative Medicine 08/08/23 documented as of this encounter
--- OUTSIDE RECORDS SUMMARY | 2024-08-12 15:08 | XMS_ITS | Encounter Summary ---
Author Organization [facility] Address [address] [facility] [place] [address] Care Team Providers Care Covering Machine Operator Helper Name Role Phone Bee Moya MD Primary Care Provider [phone] Bee Moya MD Unavailable [phone] Encounter Details Date Type Department Care Team (Late Contact Info) Description 08/03/2024 Clinisync Result Encounter NOMS External Department Unsolicited [...] [address] [facility] [address] Cristine Azul NP [address] [place] [address] 09/10/2024 9:30 AM EDT Office Visit [facility] LPS IM [address] [place] [address] Lina Charles, OUTSIDE REPAIRER SPECIAL [address] [place] [address] 08/19/2025 11:00 AM EDT Office Visit [facility] BCP OB [address] [facility] [place] [address] Sebastian Montiel, DO [address] [facility] [place] [address] documented as of this encounter Procedures Procedure Name Priority Date/Time Associated Diagnosis Comments [facility] ESR BLD QN WESTRGRN Routine 08/03/2024 9:48 AM EDT [facility] CBC W AUTO DIFF BLD Routine 08/03/2024 9:48 AM EDT [facility] COMP METAB 2000 PNL SERPL Routine 08/03/2024 9:48 AM EDT documented in this encounter Results * [facility] ESR BLD QN WESTRGRN (08/03/2024 9:48 AM EDT) [facility] ESR BLD QN WESTRGRN 2 0 - 20 mm/hr [facility] 08/03/2024 9:48 AM EDT 08/03/2024 2:24 PM EDT Narrative CLINISYNC - 08/03/2024 3:31 PM EDT Specimen Type: BLOOD SPECIMEN Ordering Facility: [facility] Address: [address] [place], [place] [id number] Original Ordering Provider: RUPERTO LEDEZMA us Generic External Data Provider CLINISYAMARILIS F inal Result CLINISY[address] [place] [id number] * (ABNORMAL) [facility] COMP METAB 2000 PNL SERPL (08/03/2024 9:48 AM EDT) [facility] PROT SERPL-[facility] 6.7 6.3 - 8.0 g/dL C[facility] ALBUMIN SERPL-[facility] 4.5 3.9 - 4.9 g/dL CCF [facility] CALCIUM SERPL-[facility] 9.6 8.5 - 10.2 mg/dL [facility] BILIRUB SERPL-[facility] 0.4 0.2 - 1.3 mg/dL CCF [facility] ALP SERPL-[facility] 67 34 - 123 U/L CCF [facility] AST SERPL-[facility] 40(H) 13 - 35 U/L [facility] C[facility] ALT SERPL-[facility] 45(H) 7 - 38 U/L CCF [facility] GLUCOSE SERPL-[facility] 149(H) 74 - 99 mg/dL [facility] Comment: The [place] Diabetes Association (ADA) provides guidance for cutoff [...] Standards of Medical Care in Diabetes 2016, [place] Diabetes Association. Diabetes Care. 2016.39(Suppl 1). [facility] BUN SERPL-[facility] 10 7 - 21 mg/dL [facility] CREAT SERPL-[facility] 0.62 0.58 - 0.96 mg/dL [facility] SODIUM SERPL-SC[facility] 141 136 - 144 mmol/L [facility] POTASSIUM SERPL-SCNC 4.5 3.7 - 5.1 mmol/L CCF [facility] CHLORIDE SERPL-SC[facility] 103 98 - 107 mmol/L CCF [facility] CO2 SERPL-SC[facility] 27 22 - 30 mmol/L [facility]CF [facility] ANION GAP SERPL-SC[facility] 11 8 - 15 mmol/L C[facility] C[facility] CREATININE + EGFR PNL SERPLBLD 114 >=60 mL/min/1.7 3m??? [facility] Comment:Estimated Glomerular Filtration Rate (eGFR) is calculated using the 2020 CKD-EPI creatinine equation. This equation utilizes serum creatinine, sex, and age as parameters. The creatinine assay has traceable calibration to isotope dilution- mass spectrometry. Refer to KDIGO guidelines for clinical interpretation. In patients with unstable renal function, e.g. those with acute kidney injury, the eGFR may not accurately reflect actual GFR. 08/03/2024 9:48 AM EDT 08/03/2024 9:48 AM EDT Narrative BERNARDINOISYNC - 08/03/2024 11:16 AM EDT Specimen Type: BLOOD SPECIMEN Ordering Facility: [facility] Address: [address] [place] [id number] Original Ordering Provider: RUPERTO LEDEZMA us Generic External Data Provider CLINUCROO F inalyndon Result [facility]IN[facility] [address] [place] [address] * (ABNORMAL) [facility] CBC W AUTO DIFF BLD (08/03/2024 9:48 AM EDT) [facility] WBC # BLD AUTO 7.35 3.70 - 11.00 k/uL [facility] CCF RBC # BLD AUTO 4.64 3.90 - 5.20 m/uL [facility] HGB BLD-MCNC 14.3 11.5 - 15.5 g/dL [facility] C[facility] HCT VFR BLD AUTO 43.6 36.0 - 46.0 % [facility] MCV RBC AUTO 94.0 80.0 - 100.0 fL CCF [facility] MCH RBC QN AUTO 30.8 26.0 - 34.0 pg CCF [facility]CF MCHC RBC AUTO-MCNC 32.8 30.5 - 36.0 g/dL [facility] RDW RBC-RTO 12.9 11.5 - 15.0 % [facility] PLATELET # BLD AUTO 278 150 - 400 k/uL [facility] PMV BLD AUTO 9.3 9.0 - 12.7 fL [facility]CF [facility] NEUTROPHILS/LEUK NFR BLD AUTO 61.4 % [facility] NEUTROPHILS # BLD AUTO 4.52 1.45 - 7.50 k/uL CCF CCF LYMPHOCYTES/LEUK NFR BLD AUTO 21.8 % [facility] CCF LYMPHOCYTES # BLD AUTO 1.60 1.00 - 4.00 k/uL [facility] CCF MONOCYTES/LEUK NFR BLD AUTO 8.2 % [facility] CCF MONOCYTES # BLD AUTO 0.60 <0.87 k/uL [facility] CCF EOSINOPHIL/LEUK NFR BLD AUTO 8.0 % [facility] CCF EOSINOPHIL # BLD AUTO 0.59(H) <0.46 k/uL [facility]CF CCF BASOPHILS/LEUK NFR BLD AUTO 0.3 % [facility]CF CCF BASOPHILS # BLD AUTO <0.03 <0.11 k/uL [facility] IMM GRANULOCYTES/LEUK NFR BLD AUTO 0.3 % [facility] IMM GRANULOCYTES # BLD AUTO <0.03 <0.10 k/uL CCF CCF NRBC/100 WBC BLD-RTO 0.0 /100 WBC CCF CCF NRBC # BLD AUTO <0.01 <0.01 k/uL CCF CCF DIFFERENTIAL METHOD BLD Auto [facility]CF 08/03/2024 9:48 AM EDT 08/03/2024 9:48 AM EDT Narrative MELVIN - 08/03/2024 9:51 AM EDT Specimen Type: BLOOD SPECIMEN Ordering Facility: [facility] Address: [address] [place] [address] Original Ordering Provider: RUPERTO LEDEZMA us Generic External Data Provider MELVIN bradford Result Performing Organization Address City/State/[facility] Co de Phone Number CL[facility] [address] [place] [address] documented in this encounter Visit Diagnoses Not on filedocumented in this encounter Additional Health Concerns Assessment Noted Time PHQ-9 Depression Total Score: 5 06/09/19 25 8:00 AM EDT documented as of this encounter Care Teams Covering Machine Operator Helper Relationship Specialty Start Date End Date Bee Moya MD [address] [place] [address] PCP - General Internal Medicine 06/26/22 Bee Moya MD [address] [place] [address] PCP - [employer]et[employer] 10/19/21 Dr. Ledezma Referring Physician Oncology 08/08/23 Dr. Elliott Referring Physician Cardiology 08/08/23 Dr. Clemons Referring Physician Rheumatology 08/08/23 Dr. Becerril Referring Physician Pulmonary Disease 08/08/23 Dr. Franco Referring Physician Otolaryngology 08/08/23 Emely Bonilla Referring Physician Palliative Medicine 08/08/23 documented as of this encounter
--- OUTSIDE RECORDS SUMMARY | 2024-08-12 15:09 | XMS_ITS | Encounter Summary ---
Author Organization [facility] Address [address] [facility] [place] [address] Care Team Providers Care Fuels Sales Representative Name Role Phone Bee Moya MD Primary Care Provider [phone] Bee Moya MD Unavailable [phone] Encounter Details Date Type Department Care Team (Late Contact Info) Description 10/09/2023 Clinisync Result Encounter [facility]S External Department Unsolicited Provider, Generic External Data Social History Tobacco Use Types Packs/Day Years Used Date Smoking Tobacco: Former Cigarettes Smokeless Tobacco: Never Alcohol Use Standard Drinks/Week Comments Yes 0 (1 standard drink = 0.6 oz pur e alcohol) PHQ-2 Answer Date Recorded Patient Health Questionnaire-2 Score 1 08/26/2023 Comments Unknown Sex and Gender Information Value Date Recorded Sex Assigned at Not on file Legal Sex Female 8:26 PM EDT Gender Identity Not on file Sexual Orientation Not on file documented as of this encounter Plan of Treatment Upcoming Encounters Date Type Department Care Team (Late Contact Info) Description 09/09/2024 10:20 AM EDT Office Visit [facility] OB [address] [facility] [place] [address] Cristine Azul NP [address] [place] [address] 09/10/2024 9:30 AM EDT Office Visit [facility] LPS IM [address] [place] [address] Lina Charles, LEAD FURNACE OPERATOR [address] [place] [address] 08/19/2025 11:00 AM EDT Office Visit [facility] BCP OB [address] [facility] [place] [address] Sebastian Montiel, DO [address] [facility] [place] [address] documented as of this encounter Procedures Procedure Name Priority Date/Time Associated Diagnosis Comments XR KNEE 4V AP/PA/LAT/MERCH MAJO 10/09/2023 12:14 PM EDT documented in this encounter Results * XR KNEE 4V AP/PA/LAT/MERCH MAJO (10/09/2023 12:14 PM EDT) Anatomical Region Laterality Modality Other 10/09/2023 12:1 4 PM EDT Narrative 10/09/2023 2:45 PM EDT * * *Final Report* * [...] left proximal tibia medially. No joint effusions. IMPRESSION: 1. Mild patellofemoral osteoarthritis Milling Planer Operator: PSCB Transcribe Date/Time: Oct 09 2023 2:42P Dictated by : SHANNEN HILLIARD MD This examination was interpreted and the report reviewed and electronically signed by: SHANNEN HILLIARD MD on Oct 09 2023 2:43PM EST [id number]^AGFA_IDC^SI^ACN Procedure Note Radiology, Radiologist, - 10/09/2023 * * *Final Report* * [...] left proximal tibia medially. No joint effusions. IMPRESSION: 1. Mild patellofemoral osteoarthritis Milling Planer Operator: PSCB Transcribe Date/Time: Oct 09 2023 2:42P Dictated by : SHANNEN HILLIARD MD This examination was interpreted and the report reviewed and electronically signed by: SHANNEN HILLIARD MD on Oct 09 2023 2:43PM EST [id number]^AGFA_IDC^SI^ACN us Generic External Data Provider [facility] Final Result documented in this encounter Visit Diagnoses Not on filedocumented in this encounter Additional Health Concerns Assessment Noted Time PHQ-9 Depression Total Score: 2 08/26/19 24 9:00 AM EDT documented as of this encounter Care Teams Fuels Sales Representative Relationship Specialty Start Date End Date Bee Moya MD [address] [facility] [place] [address] PCP - General Internal Medicine 06/26/22 Bee Moya MD [address] [facility] [place] [address] PCP - [employer] 10/19/21 Dr. Ledezma Referring Physician Oncology 08/08/23 Dr. Elliott Referring Physician Cardiology 08/08/23 Dr. Clemons Referring Physician Rheumatology 08/08/23 Dr. Becerril Referring Physician Pulmonary Disease 08/08/23 Dr. Franco Referring Physician Otolaryngology 08/08/23 Emely Bonilla Referring Physician Palliative Medicine 08/08/23 documented as of this encounter
--- OUTSIDE RECORDS SUMMARY | 2024-08-12 15:09 | XMS_ITS | Clinical Summary ---
Author Organization [facility] Address [address] [place] [address] Care Team Providers Care Valve Inspector Name Role Phone Bee Moya MD Primary Care Provider [phone] Allergies Active Allergy Reactions Criticality Noted Date Comments Chlorhexidine Itching,Unknown 03/11/2013 Other reaction(s): Unknown Severe skin irritation. Had used for central line care Sulfa (Sulfonamide Antibiotics) Rash Low 07/06/2024 Medications oxycodone HCl (OXYCODONE ORAL) Take 10 mg by mouth every 8 (eight) hours if needed for severe pain (8-10 pain score). TAKES IMMEDIATE RELEASE 10 MG Active cyclobenzaprine (Flexeril) 10 mg tablet Take 10 mg by mouth every 8 (eight) hours if needed for muscle spasms. Active gabapentin (Neurontin) 300 mg capsule Take 600 mg by mouth three times daily. Active pantoprazole (ProtoNix) 40 mg EC tablet Take 40 mg by mouth at bedtime. Do not crush, chew, or split. Active LORazepam (Ativan) 0.5 mg tablet Take 0.5 mg by mouth if needed in the morning, at noon, in the evening, and at bedtime for anxiety. Active levothyroxine (Synthroid, Levoxyl) 75 mcg tablet Take 75 mcg by mouth before breakfast. Active DULoxetine (Cymbalta) [address] capsule Take 30 mg by mouth at bedtime. Do not crush or chew. Active cholecalciferol (Vitamin D3) 25 MCG (1000 units) tablet Take 1,000 Units by mouth in the morning. Active albuterol 2.5 mg /3 mL (0.083 %) nebulizer solution Take 2.5 mg by nebulization every 6 (six) hours if needed for wheezing. Active umeclidinium-geovanna anteroL (Anoro Ellipta) 62.5-25 mcg/actuation blister with device Inhale 1 puff in the morning. Active aspirin 81 mg EC tabletIndication s:NSTEMI (non-ST elevated myocardial infarction) (CMS/HCC) Take 1 tablet (81 mg) by mouth in the morning for 95 doses. 30 tablet 3 5 025 Active clopidogrel (Plavix) 75 mg tabletIndication s:NSTEMI (non-ST elevated myocardial infarction) (CMS/HCC) Take 1 tablet (75 mg) by mouth in the morning for 96 doses. 30 tablet 3 5 025 Active lisinopril 5 mg tabletIndication s:Primary hypertension Take 1 tablet (5 mg) by mouth in the morning for 97 doses. 30 tablet 3 5 025 Active metoprolol succinate XL (Toprol-XL) 100 mg 24 hr tabletIndication s:Primary hypertension Take 1 tablet (100 mg) by mouth in the morning for 97 doses. Do not crush or chew. 30 tablet 3 5 025 Active rosuvastatin (Crestor) 20 mg tabletIndication s:NSTEMI (non-ST elevated myocardial infarction) (CMS/HCC) Take 1 tablet (20 mg) by mouth in the morning for 95 doses. 30 tablet 3 5 025 Active amoxicillin-pot clavulanate (Augmentin) 875-125 mg tablet Take 1 tablet by mouth twice a day. Active atenolol (Tenormin) 50 mg tablet Take 50 mg by mouth in the morning. 7 Active spironolactone (Aldactone) 25 mg tabletIndication s:Heart failure with mildly reduced ejection fraction (CMS/HCC) Take 0.5 tablets (12.5 mg) by mouth in the morning. 45 tablet 3 5 026 Active ivabradine (Corlanor) 5 mg tabletIndication s:Inappropriate sinus tachycardia Take 1 tablet (5 mg) by mouth two times daily. 180 tablet 3 5 026 Active Active Problems Problem Noted Date Diagnosed Date New daily persistent headache 07/08/2024 Assessment & Plan (07/09/2024 2:01 PM EDT): - MRI/MRA negative - neurology consulted, appreciate recommendations Assessment & Plan (07/08/2024 12:10 PM EDT): CT head 07/07 concerning for intracranial hypertension Neurology consulted. MRI is pending. Hemoptysis 07/07/2024 Assessment & Plan (07/09/2024 2:01 PM EDT): - Pending CTA to determine if Xarelto can be resumed Assessment & Plan (07/08/2024 12:10 PM EDT): Hold Xarelto, discontinue heparin infusion Discussed with pulmonary, patient will follow-up with hematology outpatient regarding resuming Xarelto Assessment & Plan (07/07/2024 4:34 PM EDT): Hold Xarelto, continue heparin infusion Discussed with pulmonary CT chest pending Chronic hypoxic respiratory failure 07/07/2024 Assessment & Plan (07/09/2024 2:01 PM EDT): - continue 2 L nasal cannula Assessment & Plan (07/08/2024 12:10 PM EDT): This is likely secondary to restrictive lung disease, bronchiectasis and postradiation lung fibrosis Patient uses 2 to 3 L nasal cannula oxygen at baseline Continue supplemental oxygenation to maintain oxygen saturation above 92%. Assessment & Plan (07/07/2024 4:34 PM EDT): This is likely secondary to restrictive lung disease, bronchiectasis and postradiation lung fibrosis Patient uses 2 to 3 L nasal cannula oxygen at baseline Continue supplemental oxygenation to maintain oxygen saturation above 92%. Pulmonary hypertension 07/07/2024 Assessment & Plan (07/09/2024 2:01 PM EDT): - follow-up with cardiology and pulmonology outpatient -Mild pulmonary hypertension mPAP 22, PVR 1.74 morillo, pcwp 4, CO 7.48 L/min based on RHC at [facility] 02/2024 multifactorial in the setting of history of PE, mediastinal radiation and post radiation fibrosis, bronchiectasis Assessment & Plan (07/08/2024 12:10 PM EDT): Mild pulmonary hypertension mPAP 22, PVR 1.74 morillo, pcwp 4, CO 7.48 L/min based on RHC at [facility] 02/2024 multifactorial in the setting of history of PE, mediastinal radiation and post radiation fibrosis, bronchiectasis Assessment & Plan (07/07/2024 4:34 PM EDT): Mild pulmonary hypertension mPAP 22, PVR 1.74 morillo, pcwp 4, CO 7.48 L/min based on RHC at [facility] 02/2024 multifactorial in the setting of history of PE, mediastinal radiation and post radiation fibrosis, bronchiectasis NSTEMI (non-ST elevated myocardial infarction) 0 07/06/2024 Assessment & Plan (07/09/2024 2:01 PM EDT): -S/p DESx2 to LAD -Continue aspirin, Plavix Assessment & Plan (07/08/2024 12:10 PM EDT): S/p DESx2 to LAD Continue aspirin, Plavix Assessment & Plan (07/07/2024 4:34 PM EDT): S/p DESx2 to LAD Continue aspirin, Plavix Assessment & Plan (07/06/2024 11:25 AM EDT): Patient was started on IV heparin cardiology saw patient who planned to do left heart cath will follow Primary hypertension 07/06/2024 Assessment & Plan (07/09/2024 2:01 PM EDT): -Continue Toprol 100 mg daily -Hold lisinopril as blood pressure is soft. Assessment & Plan (07/08/2024 12:10 PM EDT): Continue Toprol 100 mg daily Hold lisinopril as blood pressure is soft. 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 Assessment & Plan (07/09/2024 2:01 PM EDT): -s/p multiple rounds chemoradiation with multiple radiation related complications including restrictive lung disease, pneumonitis, recurrent pneumonia, and neuropathy Assessment & Plan (07/08/2024 12:10 PM EDT): s/p multiple rounds chemoradiation with multiple radiation related complications including restrictive lung disease, pneumonitis, recurrent pneumonia, and neuropathy Assessment & Plan (07/07/2024 4:34 PM EDT): s/p multiple rounds chemoradiation with multiple radiation related complications including restrictive lung disease, pneumonitis, recurrent pneumonia, and neuropathy Assessment & Plan (07/06/2024 11:25 AM EDT): Stable History of pulmonary embolism 07/06/2024 Assessment & Plan (07/09/2024 2:01 PM EDT): -AC currently on hold in setting of hemoptysis Assessment & Plan (07/08/2024 12:10 PM EDT): Patient reported hemoptysis this morning. Hold Xarelto, discontinue heparin infusion due to ongoing hemoptysis. Hemoglobin is stable. Assessment & Plan (07/07/2024 4:34 PM EDT): Patient reported hemoptysis this morning. Hold Xarelto, continue heparin infusion Assessment & Plan (07/06/2024 11:25 AM EDT): Currently on IV heparin resume DOAC post procedure Uncomplicated asthma 07/06/2024 Assessment & Plan (07/09/2024 2:01 PM EDT): -Albuterol prn Assessment & Plan (07/08/2024 12:10 PM EDT): Continue albuterol as needed Assessment & Plan (07/07/2024 4:34 PM EDT): Continue albuterol as needed Assessment & Plan (07/06/2024 11:25 AM EDT): Bronchodilators Chronic prescription benzodiazepine use 10/10/19 24 Overview (07/20/2024): Need contract Simple chronic bronchitis 07/02/2023 Neuropathy 06/03/2023 Opioid use agreement exists 12/20/2022 Psoriatic arthritis 12/20/2022 Acquired hypothyroidism 08/23/2022 Anxiety 08/23/2022 Gastroesophageal reflux disease 08/23/2022 Insomnia 08/23/2022 Major depressive disorder, single episode, mild 08/23/2022 Mild intermittent asthma 08/23/2022 Tachycardia 08/23/2022 Vitamin D deficiency 08/23/2022 Voice hoarseness 08/23/2022 BMI 33.0-33.9,adult 12/25/2019 Psoriasis vulgaris 04/18/2018 Uterine leiomyoma 03/15/2017 Overview (07/20/2024): Added automatically from request for surgery [id number] Asymptomatic premature menopause 09/05/2016 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 Date of transplant: 03/25/2013 Encounters Date Type Department Care Team Description 07/20/2024 10:45 AM EDT Office Visit [facility] [address] [place] [address] Temo Yu MD Coronary artery disease involving [place] coronary artery of [place] heart without angina pectoris (Primary Dx); Status post insertion of drug eluting coronary artery stent; Heart failure with mildly reduced ejection fraction (CMS/HCC); Mixed hyperlipidemia; Inappropriate sinus tachycardia; History of pulmonary embolism 07/17/2024 Orders Only [address] [address] Zoran Epstein MD 07/06/2024 5:21 PM EDT - 07/06/2024 6:21 PM EDT Surgery [facility] [address] [place] [address] Benjamin Dang MD Percutaneous coronary intervention 07/06/2024 6:00 AM EDT - 07/09/2024 6:23 PM EDT Hospital Encounter [facility] [address] [place] [address] Jan Kelly MD Sanaullah, Babar, MD Iqbal, Amna, MD Spencer, Caleb T, MD NSTEMI (non-ST elevated myocardial infarction) (CMS/HCC) (Primary Dx); Primary hypertension; Hemoptysis Discharge Disposition: Home or Self Care () 07/06/2024 Travel from Last 3 Months Family History Medical History Relation Name Comments Heart attack Maternal Grandfather Heart attack Paternal Grandfather Relation Name Status Comments Father Alive Maternal Grandfather Mother Alive Paternal Grandfather Social History Tobacco Use Types Packs/Day Years Used Date Smoking Tobacco: Former Cigarettes Smokeless Tobacco: Never Tobacco Cessation:Counseling Given: Not Answered Alcohol Use Standard Drinks/Week Comments Yes 0 (1 standard drink = 0.6 oz pur e alcohol) occasional [facility] Utilities Answer Date Recorded In the past 12 months has th e electric, gas, oil, or water company threatened to shut off services in your home? No 07/06/2024 Humiliation, Afraid, Rape, and Kick questionnair e Answer Date Recorded Within the last year, have y ou been afraid of your partner or ex-partner? No 07/06/2024 Emotionally Abused Not on file 07/06/2024 Physically Abused Not on file 07/06/2024 Sexually Abused Not on file 07/06/2024 Overall Financial Resource Strain (CARDIA) Answe r Date Recorded How hard is it for you to pa y for the very basics like food, housing, medical care, and heating? Not very hard 07/06/2024 Transportation Answer Date Recorded In the past 12 months, has l ack of transportation kept you from medical appointments or from getting medications? No 07/06/2024 Lack of Transportation (Non-Medical) Not on file 07/06/2024 Housing Stability Vital Sign Answer Mason e Recorded In the last 12 months, was t here a time when you were not able to pay the mortgage or rent on time? No 07/06/2024 Number of Times Moved in the Last Year Not on fi le 07/06/2024 At any time in the past 12 m [facility], were you homeless or living in a chcf (including now)? No 07/06/2024 Hunger Vital Sign Answer Date Recorded Within the past 12 months, y ou worried that your food would run out before you got the money to buy more. Never true 07/07/19 25 Ran Out of Food in the Last Year Not on file 07/06/2024 Comments No Sex and Gender Information Value Date Recorded Sex Assigned at Not on file Legal Sex Female 2:08 AM EDT Gender Identity Not on file Sexual Orientation Not on file Last Filed Vital Signs Vital Sign Reading Time Taken Comments Blood Pressure 99/72 07/20/2024 10:48 AM EDT Pulse 100 07/20/2024 10:48 AM EDT Temperature 36.4 C (97.5 F) 07/09/2024 11:40 AM EDT Respiratory Rate 17 07/09/2024 4:05 PM EDT Oxygen Saturation 97% 07/20/2024 10:48 AM EDT Inhaled Oxygen Concentration - - Weight 103 kg (226 lb) 07/20/2024 10:48 AM EDT Height 182.9 cm (6') 07/20/2024 10:48 AM EDT Body Mass Index 30.65 07/20/2024 10:48 AM EDT Plan of Treatment Upcoming Encounters Date Type Department Care Team (Late st Contact Info) Description 11/09/2024 9:00 AM EDT Office Visit [facility] [address] [place] [address] Temo Yu MD [address] [facility] [place] [address] Health Maintenance Due Date Last Done Comments Medicare Annual Wellness (AWV) 1982 COVID-19 Vaccine (#1) 07/12/1987 Depression Screening 1994 Varicella Vaccines (1 of 2 - 13+ 2-dose series) 07/12/1995 Zoster Vaccines (1 of 2) 2001 Pap Smear 07/12/2003 Cervical Cancer Screening 2012 HPV/Cotest 2012 IPV Vaccines (3 of 3 - Adult catch-up series) 09/08/2014 03/11/2014, 12/21/2013, 10/14/2013 Mammogram 2022 10/17/2018 Diabetes: Hemoglobin A1C 07/06/2025 07/06/2024 Pneumococcal Vaccine: Pediatrics (0 to 5 Years) and At-Risk Patients (6 to 64 Years) (3 of 3 - PCV20 or PCV21) 12/03/2028 12/04/2023, 06/16/2014, 03/11/2014, Additional history exists Adult Tetanus 12/03/2033 12/04/2023, 02/19, 10/14/2013 HIB Vaccines Aged Out 03/11/2014, 04/2013, 10/14/2013, Additional history exists No longer eligible based on patient's age to complete this topic Meningococcal Vaccine Aged Out 03/11/2014 No jeffrey wu eligible based on patient's age to complete this topic Hepatitis B Vaccines Completed 06/16/2014, 12/21/2013, 10/14/2013, Additional history exists Influenza Vaccine Completed 12/20/2023, , 12/21/2013 HPV Vaccines Aged Out No longer eligi ble based on patient's age to complete this topic Meningococcal B Vaccine Aged Out No l onger eligible based on patient's age to complete this topic Rotavirus Vaccines Aged Out No longer eligible based on patient's age to complete this topic Medical Devices Implanted Type [facility] Teacher Device Identifier Shelf Expiration Date Model / Serial / Lot Stent,Caroline Mr 3.00 X 28 - [id number] Implanted:Qty : 1 on 07/06/2024 by Benjamin Dang MD at [facility] Drug Eluting Stent N/A: [employer] [id number] 12/08/2025 [id number] / / [id number] Stent,Caroline Mr 2.50 X 12 - [id number] Implanted:Qty : 1 on 07/06/2024 by Benjamin Dang MD at [facility] Drug Eluting Stent N/A: [employer] [id number] 09/16/2025 [id number] / / [id number] Procedures Procedure Name Priority Date/Time Associated Diagnosis Comments VASC US LOWER EXTREMITY VENOUS DUPLEX BILATERAL Routine 07/09/2024 4:32 PM EDT CTA CHEST W IV CONTRAST Routine 07/09/2024 3:03 PM EDT BASIC METABOLIC PANEL Pending Discharge 07/09/2024 8:24 AM EDT CBC Pending Discharge 07/09/2024 6:46 AM EDT MR HEAD ANGIO WO IV CONTRAST Routine 07/08/2024 2:54 PM EDT MR BRAIN W AND WO CONTRAST Routine 07/08/2024 2:40 PM EDT RED TOP Routine 07/08/2024 1:33 PM EDT EXTRA TUBES Routine 07/08/2024 1:33 PM EDT HEPATIC FUNCTION PANEL Add-On 07/08/2024 1:33 PM EDT ANTI-FACTOR XA Pending Discharge 07/08/2024 1:33 PM EDT ANTI-FACTOR XA Pending Discharge 07/08/2024 8:51 AM EDT CBC Pending Discharge 07/08/2024 4:34 AM EDT ANTI-FACTOR XA Pending Discharge 07/08/2024 12:16 AM EDT ANTI-FACTOR XA Add-On 07/07/2024 6:02 PM EDT PLATELET COUNT STAT 07/07/2024 6:02 PM EDT APTT STAT 07/07/2024 6:[address] HEAD WO IV CONTRAST STAT 07/07/2024 5:[address] CHEST WO IV CONTRAST Routine 07/07/2024 4:13 PM EDT XR CHEST 1 VIEW Routine 07/07/2024 8:38 AM EDT CBC Routine 07/07/2024 6:08 AM EDT BASIC METABOLIC PANEL Routine 07/07/2024 6:08 AM EDT LIGHT BLUE TOP Routine 07/06/2024 11:10 PM EDT EXTRA TUBES Routine 07/06/2024 11:10 PM EDT HIGH SENSITIVITY TROPONIN I Routine 07/06/2024 11:10 PM EDT ECG 12-LEAD Today 07/06/2024 5:40 PM EDT HIGH SENSITIVITY TROPONIN I Routine 07/06/2024 4:59 PM EDT ANTI-FACTOR XA Timed 07/06/2024 4:59 PM EDT COMPLETE ECHO (TTE) W/ IMAGING AGENT Routine 07/06/2024 4:03 PM EDT ULTRASOUND - CORONARY Routine 07/06/2024 3:19 PM EDT NSTEMI (non-ST elevated myocardial infarction) (CMS/HCC) PERC CORONARY INTERVENTION Routine 07/06/2024 3:19 PM EDT NSTEMI (non-ST elevated myocardial infarction) (CMS/HCC) CORONARY ANGIOGRAPHY Routine 07/06/2024 3:19 PM EDT NSTEMI (non-ST elevated myocardial infarction) (CMS/HCC) POCT ACT Routine 07/06/2024 2:36 PM EDT ECG 12-LEAD Routine 07/06/2024 1:49 PM EDT POCT , URINE STAT 07/06/2024 12:14 PM EDT ECG 12-LEAD Routine 07/06/2024 9:30 AM EDT HCG, QUANTITATIVE, STAT Add-on 07/06/2024 8:18 AM EDT B-TYPE NATRIURETIC PEPTIDE Routine 07/06/2024 8:18 AM EDT HEMOGLOBIN A1C Add-On 07/06/2024 8:18 AM EDT LIPID PANEL Add-On 07/06/2024 8:18 AM EDT APTT STAT 07/06/2024 8:18 AM EDT CBC STAT 07/06/2024 8:18 AM EDT HIGH SENSITIVITY TROPONIN I STAT 07/06/2024 8:18 AM EDT BASIC METABOLIC PANEL STAT 07/06/2024 8:18 AM EDT CBC Routine 07/05/2024 1:51 PM EDT D-DIMER, QUANTITATIVE Routine 07/05/2024 1:51 PM EDT BASIC METABOLIC PANEL Routine 07/05/2024 1:51 PM EDT B-TYPE NATRIURETIC PEPTIDE Routine 07/05/2024 1:51 PM EDT ECG 12-LEAD Routine 07/05/2024 1:50 PM EDT from Last 3 Months Results * Vascular US lower extremity venous duplex bilateral (07/09/2024 4:32 PM EDT) Anatomical Region Laterality Modality Lower Extremities Ultrasound 07/09/2024 4:28 PM EDT Impressions 07/09/2024 8:52 PM EDT Right: No evidence of acute deep or superficial vein thrombosis of the right lower extremity. Left: No evidence of acute deep or superficial vein thrombosis of the left lower extremity. Right: No evidence of acute deep or superficial vein thrombosis of the right lower extremity. Left: No evidence of acute deep or superficial vein thrombosis of the left lower extremity. Conclusions: No acute deep or superficial vein thrombosis in bilateral lower extremities. Narrative 07/09/2024 8:52 PM EDT Procedure: Duplex spectral Doppler and real time ultrasound imaging with compression and augmentation was performed from inguinal ligament to ankle bilaterally. Procedure: Duplex spectral Doppler and real time ultrasound imaging with compression and augmentation was performed from inguinal ligament to ankle bilaterally. Procedure Note Andres Castaneda MD - 07/09/2024 Procedure: Duplex spectral Doppler and real time ultrasound imaging withcompression and augmentation was performed from inguinal ligament to anklebilaterally. Procedure: Duplex spectral Doppler and real time ultrasound imaging withcompression and augmentation was performed from inguinal ligament to anklebilaterally. IMPRESSION: Right: No evidence of acute deep or superficial vein thrombosis of theright lower extremity. Left: No evidence of acute deep or superficial vein thrombosis of the leftlower extremity. Right: No evidence of acute deep or superficial vein thrombosis of theright lower extremity. Left: No evidence of acute deep or superficial vein thrombosis of the leftlower extremity. Conclusions: No acute deep or superficial vein thrombosis in bilaterallower extremities. us Binta Reeder MD IMG CV VASCULAR PROCEDURES [facility] al Result * CTA Chest W IV Contrast (07/09/2024 3:03 PM EDT) Anatomical Region Laterality Modality Body, Chest Computed Tomogra phy 07/09/2024 3:09 PM EDT Impressions 07/09/2024 3:15 PM EDT [address] No CT evidence of pulmonary embolism. 2. Left pleural effusion and small pericardial effusion. 3. Bilateral groundglass infiltrates with more focal infiltrate in the left apex. All CT scans at this facility use dose modulation, iterative reconstruction, and/or weight based dosing when appropriate to reduce radiation dose to as low as reasonably achievable. Electronically signed: Jhonny Banda. Narrative 07/09/2024 3:15 PM EDT CTA CHEST W IV CONTRAST 07/09/2024 2:27 PM Clinical: Difficulty breathing. Evaluate for pulmonary embolism. COMPARISON: None. PROCEDURE: Axial tomographic sections obtained through chest using CTA technique with attention to the pulmonary vessels. 3-D MIP sagittal, axial, and coronal reconstructions were constructed under concurrent physician supervision on an independent workstation. Automatic exposure control utilized. FINDINGS: No clots are seen in the visualized pulmonary arteries. There is a moderate-sized left pleural effusion. Small pericardial effusion. Elevated right hemidiaphragm. Bilateral hazy groundglass infiltrates. More focal infiltrate medially in the left apex. No pneumothorax. Nonenlarged left hilar lymph node. No enlarged lymph nodes are seen in alayna or mediastinum. No thoracic aortic aneurysm seen. Multilevel thoracic degenerative changes. Mild right convex thoracic scoliosis. Procedure Note Jhonny Banda MD - 07/09/2024 CTA CHEST W IV CONTRAST 07/09/2024 2:27 PM Clinical: Difficulty breathing. Evaluate for pulmonary embolism. COMPARISON: None. PROCEDURE: Axial tomographic sections obtained through chest using CTA techniquewith attention to the pulmonary vessels. 3-D MIP sagittal, axial, andcoronal reconstructions were constructed under concurrent physician supervision quique independent workstation. Automatic exposure control utilized. FINDINGS: No clots are seen in the visualized pulmonary arteries. There is a moderate-sized left pleural effusion. Small pericardial effusion. Elevated right hemidiaphragm. Bilateral hazy groundglass infiltrates. More focal infiltrate medially in the left apex. No pneumothorax. Nonenlarged left hilar lymph node. No enlarged lymph nodes are seen in alayna or mediastinum. No thoracic aortic aneurysm seen. Multilevel thoracic degenerative changes. Mild right convex thoracicscoliosis. IMPRESSION: 1. No CT evidence of pulmonary embolism. 2. Left pleural effusion and small pericardial effusion. 3. Bilateral groundglass infiltrates with more focal infiltrate in theleft apex. All CT scans at this facility use dose modulation, iterativereconstruction, and/or weight based dosing when appropriate to reduce radiation dose to aslow as reasonably achievable. Electronically signed: Jhonny Banda. Binta Reeder MD IM CT PROCEDURES Final Result * (ABNORMAL) Basic metabolic panel (07/09/2024 8:24 AM EDT) Only the most recent of4 resultswithin the time period is included. Sodium 138 136 - 145 mmol/L 07/09/2024 8:50 AM EDT [facility] ([facility]) Potassium 4.3 3.5 - 5.1 mmol/L 07/09/2024 8:50 AM EDT [facility] ([facility]) Chloride 101 98 - 107 mmol/L 07/09/2024 8:50 AM EDT [facility] ([facility]) CO2 31 21 - 31 mmol/L 07/09/2024 8:50 AM EDT [facility] ([facility] BUN 10 7 - 25 mg/dL 07/09/2024 8:50 AM EDT [facility] ([facility]) Creatinine 0.60 0.60 - 1.20 mg/dL 07/09/2024 8:50 AM T [facility] ([facility]) Glucose 158(H) 70 - 100 mg/dL 07/09/2024 8:50 AM EDT [facility] ([facility]) Calcium 9.3 8.6 - 10.3 mg/dL 07/09/2024 8:50 AM T [facility] ([facility]) Anion Gap 10 7 - 20 mmol/L 07/09/2024 8:50 AM EDT [facility] ([facility]) eGFR 115.6 >60.0 mL/min/1. 73m*2 07/09/2024 8:50 AM EDT [facility] ([facility]) Comment:The [facility] s estimated glomerular filtration rate (eGFR) will no longer include consideration of race in its calculation. The [employer] s eGFR Task Force developed new recommendations for the estimation of the glomerular filtration rate in the [place] They recommend immediate implementation of the new equation refit without the race variable in all laboratories because the calculation does not include race. In addition to not including race in the calculation and reporting, it included diversity in its development, and has acceptable performance characteristics and potential consequences that do not disproportionately affect any one group of individuals. BUN/Creatinine Ratio 16.7 06/19 8:50 AM EDT [facility] ([facility]) Blood Venous blood specimen / Unknown Venipuncture / Unknown 07/09/2024 8:24 AM EDT 07/09/2024 8:27 AM EDT us Kayden Carrillo MD LAB BLOOD ORDERABLES Final Re sult [facility] ([facility]) [address] [place] [address] * (ABNORMAL) CBC (07/09/2024 6:46 AM EDT) Only the most recent of5 resultswithin the time period is included. Auto WBC 14.54(H) 4.00 - 10.60 10*3/uL 07/09/2024 7:23 AM EDT [facility] ([facility]) RBC 4.62 3.80 - 5.00 10*6/uL 07/09/2024 7:23 AM EDT [facility] ([facility]) Hemoglobin 14.3 12.0 - 15.0 g/dL 07/09/2024 7:23 AM EDT [facility] ([facility]) Hematocrit 43.5 36.0 - 45.0 % 07/09/2024 7:23 AM EDT [facility] ([facility]) MCV 94.2 82.0 - 98.0 fL 07/09/2024 7:23 AM EDT [facility] ([facility]) MCH 31.0 27.0 - 33.0 pg 07/09/2024 7:23 AM EDT [facility] ([facility]) MCHC 32.9 32.0 - 35.0 g/dL 07/09/2024 7:23 AM EDT [facility] ([facility]) RDW 12.7 11.5 - 15.0 % 07/09/2024 7:23 AM EDT [facility] ([facility]) Platelets 320 150 - 400 10*3/uL 07/09/2024 7:23 AM EDT [facility] ([facility]) Blood Venous blood specimen / Unknown Venipuncture / Unknown 07/09/2024 6:46 AM EDT 07/09/2024 6:52 AM EDT Jan Kelly MD LAB BLOOD ORDERABLES Final Resul t [facility] ([facility]) [address] [place] [address] * MRA head wo IV contrast (07/08/2024 2:54 PM EDT) Anatomical Region Laterality Modality Head, Neck Magnetic Resonan ce 07/08/2024 3:24 PM EDT Impressions 07/08/2024 3:27 PM EDT Normal MRA of the head. Electronically signed: LORIN BRANDT MD. Narrative 07/08/2024 3:27 PM EDT MR HEAD ANGIO WO IV CONTRAST INDICATION: New onset headache. TECHNIQUE: MRA images of the head were obtained with intravenous contrast. 3-D images were also post processed at a separate workstation to further define anatomy and potential pathology. FINDINGS: Distal cervical ICAs are patent. Utilized portions of the anterior cerebral, anterior communicating arteries appear patent. Visualized portions of the middle cerebral arteries are patent. Posterior communicating arteries are visualized, slightly diminished on the left. Posterior cerebral arteries are patent. Visualized portions of the distal vertebral and basilar arteries are patent. Procedure Note Lorin Brandt MD - 07/08/2024 MR HEAD ANGIO WO IV CONTRAST INDICATION: New onset headache. TECHNIQUE: MRA images of the head were obtained with intravenous contrast.3-D images were also post processed at a separate workstation to furtherdefine anatomy and potential pathology. FINDINGS: Distal cervical ICAs are patent. Utilized portions of the anterior cerebral, anterior communicatingarteries appear patent. Visualized portions of the middle cerebral arteries are patent. Posterior communicating arteries are visualized, slightly diminished onthe left. Posterior cerebral arteries are patent. Visualized portions of thedistal vertebral and basilar arteries are patent. IMPRESSION: Normal MRA of the head. Electronically signed: LORIN BRANDT MD. Farrah Mendez MD IM MRI PROCEDURES Final Result * MR brain w and wo contrast (07/08/2024 2:40 PM EDT) Anatomical Region Laterality Modality Brain Magnetic Resonan ce 07/08/2024 2:57 PM EDT Impressions 07/08/2024 3:23 PM EDT * No acute intracranial abnormality, accounting for motion artifact. Electronically signed: LORIN BRANDT MD. Narrative 07/08/2024 3:23 PM EDT MR BRAIN W AND WO CONTRAST CLINICAL HISTORY: Headache, papilledema. TECHNIQUE: Routine multiplanar multisequence MR imaging of the brain was performed following the uncomplicated administration of intravenous contrast. FINDINGS: Mild motion degraded exam. No acute infarct, intracranial hemorrhage, mass effect, midline shift or extra-axial fluid collection. No significant parenchymal signal abnormality for age. Brain volume, ventricles and sulci are age-appropriate. Bilateral globes, orbits are unremarkable. No significant distention at the level of the optic nerve sheaths, Meckel's caves. Major intracranial arterial flow voids appear preserved by technique. No pathologic intraparenchymal enhancement. Procedure Note Lorin Brandt MD - 07/08/2024 MR BRAIN W AND WO CONTRAST CLINICAL HISTORY: Headache, papilledema. TECHNIQUE: Routine multiplanar multisequence MR imaging of the brain was performed following the uncomplicated administration of intravenouscontrast. FINDINGS: Mild motion degraded exam. No acute infarct, intracranial hemorrhage, mass effect, midline shift or extra-axial fluid collection. No significant parenchymal signal abnormality for age. Brain volume, ventricles and sulci are age-appropriate. Bilateral globes, orbits are unremarkable. No significant distention at the level of the optic nerve sheaths,Meckel's caves. Major intracranial arterial flow voids appear preserved bytechnique. No pathologic intraparenchymal enhancement. IMPRESSION: *No acute intracranial abnormality, accounting for motion artifact. Electronically signed: LORIN BRANDT MD. Farrah Mendez MD IMG MRI PROCEDURES Final Result * Red Top (07/08/2024 1:33 PM EDT) Extra Tube Hold for add-ons. 07/08/2024 3:01 PM EDT [facility] ([facility]) Comment:Auto resulted. Blood Venous blood specimen / Unknown 07/08/2024 1:33 PM EDT 07/08/2024 1:39 PM EDT Taya Valdez MD LAB BLOOD ORDERABLES Final Resul t [facility] ([facility]) [address] [place] [address] * (ABNORMAL) Anti-Xa (Heparin Level) (07/08/2024 1:33 PM EDT) Only the most recent of5 resultswithin the time period is included. Anti-Xa (Heparin) 0.11(LL) 0.3 - 0.7 IU/mL 07/08/2024 2:15 PM EDT [facility] ([facility]) Comment:Rivaroxaban and Apix aban will interfere with the anti Xa assay used to monitor UFH and LMWH. Blood Venous blood specimen / Unknown Venipuncture / Unknown 07/08/2024 1:33 PM EDT 07/08/2024 1:38 PM EDT us Taya Valdez MD LAB BLOOD ORDERABLES Final Resul t [facility]) [address] [place], [place] [id number] * Hepatic function panel (07/08/2024 1:33 PM EDT) Total Bilirubin 0.8 0.3 - 1.0 mg/dL 07/08/2024 2:17 PM EDT [facility]) Bilirubin, Direct 0.2 0 - 0.2 mg/dL 07/08/2024 2:17 PM EDT [facility] ([facility]) Alkaline Phosphatase 49 34 - 104 U/L 07/08/2024 2:17 PM EDT [facility] ([facility]) AST 27 13 - 39 U/L 07/08/2024 2:17 PM EDT [facility] ([facility]) ALT (SGPT) 27 7 - 52 U/L 07/08/2024 2:17 PM EDT [facility]) Total Protein 6.3 6.0 - 8.3 g/dL 07/08/2024 2:17 PM EDT [facility]) Albumin 3.8 3.5 - 5.7 g/dL 07/08/2024 2:17 PM EDT [facility] ([facility]) Blood Venous blood specimen / Unknown Venipuncture / Unknown 07/08/2024 1:33 PM EDT 07/08/2024 1:50 PM EDT us Farrah Mendez MD LAB BLOOD ORDERABLES Final Resul t [facility]) [address] [place], [place] [id number] * aPTT - baseline (07/07/2024 6:02 PM EDT) Only the most recent of2 resultswithin the time period is included. aPTT 26.2 25.0 - 35.0 Seconds 07/07/2024 6:55 PM EDT [facility] ([facility]) Comment:Clinical significanc e of the APTT is questionable in the presence of heparin. Blood Venous blood specimen / Unknown Venipuncture / Unknown 07/07/2024 6:02 PM EDT 07/07/2024 6:55 PM EDT us Taya Valdez MD LAB BLOOD ORDERABLES Final Resul t Performing Organization Address City/[facility]/ZIP Co de Phone Number [facility] ([facility]) [address] [place] [address] * Platelet count (07/07/2024 6:02 PM EDT) Platelets 304 150 - 400 10*3/uL 07/07/2024 6:50 PM EDT [facility] ([facility]) Blood Venous blood specimen / Unknown Venipuncture / Unknown 07/07/2024 6:02 PM EDT 07/07/2024 6:39 PM EDT us Taya Valdez MD LAB BLOOD ORDERABLES Final Resul t Performing Organization Address City/[facility] Co de Phone Number [facility] ([facility]) [address] [place] [address] * CT head wo IV contrast (07/07/2024 5:58 PM EDT) Anatomical Region Laterality Modality Head, Neck Computed Tomogra phy 07/07/2024 6:22 PM EDT Impressions 07/07/2024 6:34 PM EDT Impression: * No acute intracranial abnormality. * Slitlike lateral lateral ventricles and partially empty sella can be seen in idiopathic intracranial hypertension. Clinical correlation recommended. Approved by:Jose Charlton07/07/2024 6:30 PM. I, Carlo Freeman,have reviewed the image(s) and agree with the findings in this report. Electronically signed: Carlo Freeman. Narrative 07/07/2024 6:34 PM EDT Clinical information: Headache Comparison: None available. Technique: Routine unenhanced brain CT. Findings: Acute intracranial hemorrhage or extra axial fluid collection. Salguero-white differentiation is well preserved. Ventricles are somewhat slitlike in nature with accompanying partially empty sella. No evidence of midline shift or obstructing lesions. Cerebral volume is age appropriate No depressed or displaced osseous fracture Mastoid air cells and paranasal sinuses are well aerated No acute soft tissue abnormality. Procedure Note Carlo Freeman MD - 07/07/2024 Clinical information: Headache Comparison: None available. Technique: Routine unenhanced brain CT. Findings: Acute intracranial hemorrhage or extra axial fluid collection.Salguero-white differentiation is well preserved. Ventricles are somewhat slitlike innature with accompanying partially empty sella. No evidence of midline shift or obstructing lesions. Cerebral volume is age appropriate No depressed or displaced osseous fracture Mastoid air cells and paranasal sinuses are well aerated No acute soft tissue abnormality. IMPRESSION: Impression: *No acute intracranial abnormality. *Slitlike lateral lateral ventricles and partially empty sella can beseen in idiopathic intracranial hypertension. Clinical correlationrecommended. Approved by:Jose Charlton07/07/2024 6:30 PM. ICarlo,have reviewed the image(s) and agree with the findingsin this report. Electronically signed: Carlo Freeman. Taya Valdez MD IMG CT PROCEDURES Final Result * CT chest wo IV contrast (07/07/2024 4:13 PM EDT) Anatomical Region Laterality Modality Body, Chest Computed Tomogra phy 07/07/2024 11:4 1 PM EDT Impressions 07/08/2024 1:17 AM EDT Impression: 1. Poorly circumscribed perihilar consolidations with multifocal bronchiectasis and more focal airspace consolidations in the bilateral lower lobes and left upper lobe. Findings may be secondary to an infectious, inflammatory, or neoplastic process. Short-term follow-up CT in 6 weeks recommended. 2. Moderate left and trace right pleural effusions. 3. Multifocal groundglass attenuation in the lungs is nonspecific and may be secondary to pulmonary edema, hemorrhage, or infectious process. Approved by:Carlo Steward07/08/2024 12:04 AM. IVin MD,have reviewed the image(s) and agree with the findings in this report. Electronically signed: Vin Oglesby MD. Narrative 07/08/2024 1:17 AM EDT CLINICAL HISTORY: Hemoptysis. History of Hodgkin's lymphoma. COMPARISON: None TECHNIQUE: CT chest was performed without the use of IV contrast. Automated exposure control was utilized. All CT scans at this facility use dose modulation, iterative reconstruction, and/or weight based dosing when appropriate to reduce radiation dose to as low as reasonably achievable. FINDINGS: The heart is normal in size. No pericardial effusion. The aorta and pulmonary arteries are not well evaluated due to lack of IV contrast. Poorly circumscribed perihilar consolidations with bronchiectasis. Bilateral lower lobe consolidations. Moderate left and trace right pleural effusions. Multifocal groundglass attenuation in the lungs. No acute findings in the partially visualized abdomen. No acute osseous abnormalities. Procedure Note Vin Oglesby MD - 07/08/2024 CLINICAL HISTORY: Hemoptysis. History of Hodgkin's lymphoma. COMPARISON: None TECHNIQUE: CT chest was performed without the use of IV contrast. Automatedexposure control was utilized. All CT scans at this facility use dose modulation, iterative reconstruction, and/or weight based dosing when appropriate toreduce radiation dose to as low as reasonably achievable. FINDINGS: The heart is normal in size. No pericardial effusion. The aorta and pulmonary arteries are not well evaluated due to lack ofIV contrast. Poorly circumscribed perihilar consolidations with bronchiectasis.Bilateral lower lobe consolidations. Moderate left and trace right pleuraleffusions. Multifocal groundglass attenuation in the lungs. No acute findings inthe partially visualized abdomen. No acute osseous abnormalities. IMPRESSION: Impression: 1.Poorly circumscribed perihilar consolidations with multifocal bronchiectasis and more focal airspace consolidations in the bilaterallower lobes and left upper lobe. Findings may be secondary to an infectious, inflammatory, or neoplastic process. Short-term follow-up CT in 6 weeks recommended. 2.Moderate left and trace right pleural effusions. 3.Multifocal groundglass attenuation in the lungs is nonspecific and maybe secondary to pulmonary edema, hemorrhage, or infectious process. Approved by:Carlo Steward07/08/2024 12:04 AM. I, Vin Oglesby MD,have reviewed the image(s) and agree with the findingsin this report. Electronically signed: Vin Oglesby MD. us Binta Reeder MD IMG CT PROCEDURES Final Result * XR chest 1 view (07/07/2024 8:38 AM EDT) Anatomical Region Laterality Modality Chest Computed Radiogr aphy 07/07/2024 8:45 AM EDT Impressions 07/07/2024 8:47 AM EDT Pulmonary vascular congestion and interstitial edema suspected. Obscuration of left hemidiaphragm. Superimposed pneumonia cannot be entirely excluded. Electronically signed: Dionicio Cantu MD. Narrative 07/07/2024 8:47 AM EDT XR CHEST 1 VIEW 07/07/2024 8:23 AM CLINICAL INDICATIONS: Wheezing COMPARISON: None FINDINGS: Portable AP upright view. Perihilar strandy opacities. Diffuse interstitial prominence. Trace left pleural effusion. No pneumothorax. Cardiac silhouette is within normal limits. There is mild obscuration of the left hemidiaphragm. Procedure Note Dionicio Cantu MD - 07/07/2024 XR CHEST 1 VIEW 07/07/2024 8:23 AM CLINICAL INDICATIONS: Wheezing COMPARISON: None FINDINGS: Portable AP upright view. Perihilar strandy opacities. Diffuse interstitial prominence. Trace leftpleural effusion. No pneumothorax. Cardiac silhouette is within normal limits.There is mild obscuration of the left hemidiaphragm. IMPRESSION: Pulmonary vascular congestion and interstitial edema suspected. Obscuration of left hemidiaphragm. Superimposed pneumonia cannot beentirely excluded. Electronically signed: Dionicio Cantu MD. Taya Valdez MD IMG XR PROCEDURES Final Result * (ABNORMAL) High Sensitivity Troponin I (07/06/2024 11:10 PM EDT) Only the most recent of3 resultswithin the time period is included. High Sensitivity Troponin I 3,570(HH) <15 ng/L 07/07/2024 12:17 AM EDT [facility] ([facility]) Blood Venous blood specimen / Unknown Venipuncture / Unknown 07/06/2024 11:10 PM EDT 07/06/2024 11:36 PM EDT Jhonny Guillen MD LAB BLOOD ORDERABLES Final Re sult Performing Organization Address City/[facility]/ZIP Co de Phone Number [facility] ([facility]) [address] [place] [address] * Light Blue Top (07/06/2024 11:10 PM EDT) Extra Tube Hold for add-ons. 07/07/2024 1:01 AM EDT [facility] ([facility]) Comment:Auto resulted. Blood Venous blood specimen / Unknown Venipuncture / Unknown 07/06/2024 11:10 PM EDT 07/06/2024 11:37 PM EDT Jhonny Guillen MD LAB BLOOD ORDERABLES Final Re sult Performing Organization Address [facility] Co de Phone Number [facility] ([facility]) [address] [place] [address] * ECG 12 lead (07/06/2024 5:40 PM EDT) Only the most recent of4 resultswithin the time period is included. Ventricular Rate 106 BPM GE MUSE Atrial Rate 106 BPM GE MUSE VT Interval 162 ms GE MUSE QRS DURATION 100 ms GE MUSE QT Interval 336 ms GE MUSE QTC CALCULATION(BAZE TT) 446 ms GE MUSE P [place] 54 degrees GE MUSE R-[place] -27 degrees GE MUSE T Wave [place] 8 degrees GE MUSE 07/06/2024 5:23 PM EDT 07/06/2024 7:52 PM EDT Impressions GE MUSE - 07/06/2024 7:52 PM EDT Sinus tachycardia Minimal voltage criteria for LVH, may be normal variant ( [place] product ) Cannot rule out Anterior infarct , age undetermined Inferior infarct (cited on or before 06-JUL-2024) Abnormal ECG When compared with ECG of 06-JUL-2024 09:29, No significant change was found Confirmed by Temo Yu ([id number]) on 07/06/2024 7:52:26 PM Narrative Procedure Note Temo Yu MD - 07/06/2024 IMPRESSION: Sinus tachycardia Minimal voltage criteria for LVH, may be normal variant ( [place] product ) Cannot rule out Anterior infarct , age undetermined Inferior infarct (cited on or before 06-JUL-2024) Abnormal ECG When compared with ECG of 06-JUL-2024 09:29, No significant change was found Confirmed by Temo Yu ([id number]) on 07/06/2024 7:52:26 PM us Benjamin Dang MD ECG ORDERABLES Final Resu lt GE MUSE * COMPLETE ECHO (TTE) W/ IMAGING AGENT (07/06/2024 4:03 PM EDT) Anatomical Region Laterality Modality Other 07/06/2024 3:45 PM EDT Narrative 07/06/2024 4:17 PM EDT 1 [facility] [address] [place] [address] [phone] (fax) Echocardiogram-[facility] Name: CELSO WELLER Study Date: 07/06/2024 03:45 PM B/P: 94 mmHg/68 mmHg HR: 103 bpm Date of : 1980 Location: [facility] Height: 72 in. Age: 43 year(s) Patient Room: 3129 Weight: 235 lb. Gender: Female Patient Status: InPt BSA: 2.28 m2 Indication: Chest Pain, Non-STEMI, S/P CARLTON LAD 07/06/24 Examination: Echocardiogram (Complete), Lumason Contrast Image Quality: The patient was unable to roll left lateral Patient Consent: Procedure explained to patient Exam Details Contrast: I.V. dose of Lumason Conclusions Left Ventricle: The left ventricle is normal size. Global left ventricular systolic function is moderately reduced. EF range is estimated at 40 % -45 %. Left ventricular wall thickness is normal. Regional wall motion abnormalities (see diagram). Right Ventricle: The right ventricle is normal in size. Right ventricular systolic function appears normal. Doppler studies suggest normal right sided pressures. Left Atrium: The left atrium is normal in size. Overall Conclusions: Due to suboptimal imaging Lumason contrast was administered for opacification and better delineation of endocardial borders. Measurements Left Ventricle Label Value Normal Value LVOTd 2 cm (18cm - 20cm) LVOT VTI 13.5 cm (18cm - 22cm) LVOT PGmax 3 mmHg LVDd, 2D 5.11 cm (3.9cm - 5.3cm) LVDs, 2D 3.58 cm (2.1cm - 4cm) IVSd, 2D 0.93 cm (0.6cm - 1.1cm) LVPWd, 2D 0.77 cm (0.6cm - 0.9cm) LV Mass, 2D ASE 152.35 g LV Mass Index, 2D ASE 66.8 g/m?? (44g/m?? - 88.4g/m??) RWT, MM 0.3 (0 - 0.42) LVSVI, 2D 30.7 ml/m2 LVOT PGmean 1 mmHg LVSV_LVOT 42 ml Right Ventricle Label Value Normal Value TAPSE 1.8 cm Left Atrium Label Value Normal Value LA Volume, BP 38 ml (22ml - 52ml) LADs, 2D 4.4 cm (2.7cm - 3.8cm) LAESV index, BP 16.7 ml/m?? Aortic Valve Label Value Normal Value AV DVI 0.78 AV VTI 18.1 cm Tricuspid Valve Label Value Normal Value RA Pressure 3 mmHg RVSP 32 mmHg TR Vmax 2.67 m/s Aorta Label Value Normal Value AoAsc 2.8 cm AoRoot, 2D 3 cm (1.4cm - 3.8cm) Great Vessels Label Value Normal Value IVC 1.6 cm (1.2cm - 2.3cm) Valvular Assessment LVOT 0.7 - 1.1 m/sec Aortic Valve 1.0 - 1.7 m/sec Mitral Valve 0.6 - 1.3 m/sec Tricuspid Valve 0.3 - 0.7 m/sec Pulmonic Valve 0.6 - 0.9 m/sec Regurgitation Trivial Trivial Trivial Trivial Max Velocity 0.82 m/sec 1.05 m/s 0.73 m/s Max Gradient 4.00 mmHg 2.00 mmHg Mean Gradient 3.00 mmHg Valve Area 2.5 cm?? Findings Left Ventricle: The left ventricle is normal size. Global left ventricular systolic function is moderately reduced. EF range is estimated at 40 % -45 %. Left ventricular wall thickness is normal. Regional wall motion abnormalities (see diagram). The mid anteroseptal, mid inferoseptal, mid inferior, apical anterior, apical septal, apical inferior, apical lateral and apex left ventricular wall segments are akinetic. All remaining scored left ventricular wall segments are with no wall motion abnormalities. Right Ventricle: The right ventricle is normal in size. Right ventricular systolic function appears normal. Doppler studies suggest normal right sided pressures. Left Atrium: The left atrium is normal in size. Right Atrium: The right atrium appears normal in size. Mitral Valve: The mitral valve is normal in mobility and thickness. Trivial mitral regurgitation. Aortic Valve: The aortic valve is normal. Trivial aortic valve regurgitation. Tricuspid Valve: Trivial tricuspid regurgitation. Pulmonic Valve: Normal pulmonary valve. Trivial pulmonary regurgitation. Aorta: The aortic root is normal in size. The ascending aorta measures 2.80 cm. Great Vessels: IVC: Normal size and course of the IVC. Pericardium: No pericardial effusion. Procedure Staff Reading Group: [facility] [employer] Practitioner: Andrew Tellez RDCS Ordering Physician: [id number] Wall Motion Scores -1 - hyperkinesia, 0 - not evaluated, 1 - normal, 2 - hypokinesia, 3 - akinesia, 4 - dyskinesia Procedure Note Tahmina Tucker MD - 07/06/2024 1 1 [facility] [address] [place] [address] [phone] (fax) Echocardiogram-[facility] Name: CELSO WELLER Study Date: 07/06/2024 03:45 PM B/P: 94 mmHg/68 mmHg HR: 103 bpm Date of : 1980 Location: [facility] Height: 72 in. Age: 43 year(s) Patient Room: 3129 Weight: 235 lb. Gender: Female Patient Status: InPt BSA: 2.28 m2 Indication: Chest Pain, Non-STEMI, S/P [place] LAD 07/06/24 Examination: Echocardiogram (Complete), Lumason Contrast Image Quality: The patient was unable to roll left lateral Patient Consent: Procedure explained to patient Exam Details Contrast: I.V. dose of Lumason Conclusions Left Ventricle: The left ventricle is normal size. Global left ventricular systolic function is moderately reduced. EF range is estimated at 40 % -45 %. Left ventricular wall thickness is normal. Regional wall motion abnormalities (see diagram). Right Ventricle: The right ventricle is normal in size. Right ventricular systolic function appears normal. Doppler studies suggest normal right sided pressures. Left Atrium: The left atrium is normal in size. Overall Conclusions: Due to suboptimal imaging Lumason contrast was administered for opacification and better delineation of endocardial borders. Measurements Left Ventricle Label Value Normal Value LVOTd 2 cm (18cm - 20cm) LVOT VTI 13.5 cm (18cm - 22cm) LVOT PGmax 3 mmHg LVDd, 2D 5.11 cm (3.9cm - 5.3cm) LVDs, 2D 3.58 cm (2.1cm - 4cm) IVSd, 2D 0.93 cm (0.6cm - 1.1cm) LVPWd, 2D 0.77 cm (0.6cm - 0.9cm) LV Mass, 2D ASE 152.35 g LV Mass Index, 2D ASE 66.8 g/m?? (44g/m?? - 88.4g/m??) RWT, MM 0.3 (0 - 0.42) LVSVI, 2D 30.7 ml/m2 LVOT PGmean 1 mmHg LVSV_LVOT 42 ml Right Ventricle Label Value Normal Value TAPSE 1.8 cm Left Atrium Label Value Normal Value LA Volume, BP 38 ml (22ml - 52ml) LADs, 2D 4.4 cm (2.7cm - 3.8cm) LAESV index, BP 16.7 ml/m?? Aortic Valve Label Value Normal Value AV DVI 0.78 AV VTI 18.1 cm Tricuspid Valve Label Value Normal Value RA Pressure 3 mmHg RVSP 32 mmHg TR Vmax 2.67 m/s Aorta Label Value Normal Value AoAsc 2.8 cm AoRoot, 2D 3 cm (1.4cm - 3.8cm) Great Vessels Label Value Normal Value IVC 1.6 cm (1.2cm - 2.3cm) Valvular Assessment LVOT 0.7 - 1.1 m/sec Aortic Valve 1.0 - 1.7 m/sec Mitral Valve 0.6 - 1.3 m/sec Tricuspid Valve 0.3 - 0.7 m/sec Pulmonic Valve 0.6 - 0.9 m/sec Regurgitation Trivial Trivial Trivial Trivial Max Velocity 0.82 m/sec 1.05 m/s 0.73 m/s Max Gradient 4.00 mmHg 2.00 mmHg Mean Gradient 3.00 mmHg Valve Area 2.5 cm?? Findings Left Ventricle: The left ventricle is normal size. Global left ventricular systolic function is moderately reduced. EF range is estimated at 40 % -45 %. Left ventricular wall thickness is normal. Regional wall motion abnormalities (see diagram). The mid anteroseptal, mid inferoseptal, mid inferior, apical anterior, apical septal, apical inferior, apical lateral and apex left ventricular wall segments are akinetic. All remaining scored left ventricular wall segments are with no wall motion abnormalities. Right Ventricle: The right ventricle is normal in size. Right ventricular systolic function appears normal. Doppler studies suggest normal right sided pressures. Left Atrium: The left atrium is normal in size. Right Atrium: The right atrium appears normal in size. Mitral Valve: The mitral valve is normal in mobility and thickness. Trivial mitral regurgitation. Aortic Valve: The aortic valve is normal. Trivial aortic valve regurgitation. Tricuspid Valve: Trivial tricuspid regurgitation. Pulmonic Valve: Normal pulmonary valve. Trivial pulmonary regurgitation. Aorta: The aortic root is normal in size. The ascending aorta measures 2.80 cm. Great Vessels: IVC: Normal size and course of the IVC. Pericardium: No pericardial effusion. Procedure Staff Reading Group: [facility] Practitioner: Andrew Tellez RDCS Ordering Physician: [id number] Wall Motion Scores -1 - hyperkinesia, 0 - not evaluated, 1 - normal, 2 - hypokinesia, 3 - akinesia, 4 - dyskinesia us Loy Sweet MD CV ECHO PROCEDURES Final Result * CORONARY ANGIOGRAPHY, PERC CORONARY INTERVENTION, ULTRASOUND - CORONARY (07/06/2024 3:19 PM EDT) Anatomical Region Laterality Modality Other Narrative 07/06/2024 3:34 PM EDT PROCEDURE PHYSICIAN: Jaime Garcia MD Clinical Presentation: 43 y.o. 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 Informed written consent was obtained. Time-out was performed. she was prepped and draped in usual sterile fashion and was given Versed and fentanyl for sedation. 1% lidocaine was infiltrated over the right radial artery. A 6-Spanish sheath was placed in right radial artery. Radial anti-vasospasm cocktail of verapamil 2.5 mg was administered through the sheath. All catheter exchanges were made over the Bar guidewire. Coronary angiography was performed with a JL4 JL3.5 and a JR4 5 . At this time, it was apparent that the LAD had severe stenosis. Heparin anticoagulation was used for the PCI procedure. ACT was maintained at >250 seconds. A 6 Spanish XB3 was engaged to the L main. A BMW guidewire was placed in the mid LAD but would not cross the lesion. Thus a Runthrough then a PT2 was placed in the left anterior descending the lesion was treated with a Emerge 2.5x15 at 10 travis and a Synergy 3x28 drug-eluting stent was placed. An [place] [facility] IVUS was performed. Based on IVUS, we post dilated the distal stent with a 2.5x12 NC Emerge, a 2.5x16 Synergy was placed distally. This was post dilated with a 2.5x12 NC and then the proximal stent was post dilated with a 3.25x20 NC Emerge. After treatment there was normal REINALDO III flow throughout the LAD and its branches. All catheters and wires were removed. The sheath was removed and a pressure band was applied to obtain hemostasis. Specimens Removed: None Complications: None Coronary Angiography: Left main: Normal LAD: Prior to the procedure there was a 99% mid vessel stenosis. 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 us Taya Valdez MD POINT OF CARE TEST ENTER/EDIT OR DERABLES Final Result * POCT , urine manually resulted (07/06/2024 12:14 PM EDT) [facility] Preg Test, Ur Negative QC Pass/Fail Passed QC LOT # [id number] QC Expiration Date 04/05/2025 Urine 07/06/2024 12:1 4 PM EDT us Jhonny Guillen MD POINT OF CARE TEST ENTER/EDIT ORDERABLES Final Result * hCG, quantitative, (07/06/2024 8:18 AM EDT) [facility] hCG Quant 5 mIU/L 07/06/2024 11:48 AM EDT [facility] ([facility]) Comment: FEMALE REFERENCE RANGES: NON 0-5 4 WKS SINCE PERIOD 3-426 5 WKS SINCE PERIOD -7340 6 WKS SINCE PERIOD 1080-56,500 10 WKS SINCE PERIOD 54,100-288,000 18 WKS SINCE PERIOD 8,910-66,000 31 WKS SINCE PERIOD 5,310-27,400 MALE REFERENCE RANGE: 0-2 Blood Venous blood specimen / Unknown Venipuncture / Unknown 07/06/2024 8:18 AM EDT 07/06/2024 8:29 AM EDT us Jhonny Guillen MD LAB BLOOD ORDERABLES Final Re sult Performing Organization Address City/[facility]/ZIP Co de Phone Number [facility] ([facility]) [address] [place], [place] [id number] * (ABNORMAL) B-type natriuretic peptide (07/06/2024 8:18 AM EDT) Only the most recent of2 resultswithin the time period is included. BNP 441(H) 0 - 100 pg/mL 07/06/2024 10:24 AM EDT [facility] ([facility]) Blood Venous blood specimen / Unknown Venipuncture / Unknown 07/06/2024 8:18 AM EDT 07/06/2024 8:30 AM EDT us Loy Sweet MD LAB BLOOD ORDERABLES Final Resul t Performing Organization Address [facility] Co de Phone Number [facility]) [address] [place] [id number] * Hemoglobin A1c (07/06/2024 8:18 AM EDT) Hemoglobin A1C 5.8 4.0 - 6.0 % 07/06/2024 11:56 AM EDT [facility]) Estimated Average Glucose 120 mg/dL 07/06/2024 11:56 AM EDT [facility]) Blood Venous blood specimen / Unknown Venipuncture / Unknown 07/06/2024 8:18 AM EDT 07/06/2024 8:30 AM EDT us Loy Sweet MD LAB BLOOD ORDERABLES Final Resul t Performing Organization Address City/[facility]/ZIP Co de Phone Number [facility]) [address] [place] [address] * (ABNORMAL) Lipid panel (07/06/2024 8:18 AM EDT) Triglycerides 117 <150 mg/dL 07/06/2024 9:10 AM EDT [facility] ([facility]) Comment: TRIGLYCERIDE REFERENCE RANGE: 20 YEARS AND OLDER CARDIOVASCULAR RISK LESS THAN 150 mg/dL LOW RISK 150 TO 199 mg/dL BORDERLINE RISK 200 mg/dL AND GREATER HIGH RISK Cholesterol 225(H) 120 - 200 mg/dL 07/06/2024 9:10 AM EDT [facility] ([facility]) LDL Calculated 145 0 - 160 mg/dL 07/06/2024 9:10 AM EDT [facility] ([facility]) HDL 57 23 - 92 mg/dL 07/06/2024 9:10 AM EDT [facility] ([facility]) Non HDL Cholesterol 168 07/06/2024 9:10 AM EDT [facility] ([facility]) Total VLDL-C 23 0 - 40 mg/dL 07/06/2024 9:10 AM EDT [facility] ([facility]) Cholesterol/HDL Ratio 3.9 mg/dL 07/06/2024 9:10 AM EDT [facility] ([facility]) Blood Venous blood specimen / Unknown Venipuncture / Unknown 07/06/2024 8:18 AM EDT 07/06/2024 8:29 AM EDT Loy Sweet MD LAB BLOOD ORDERABLES Final Resul t [facility] ([facility]) [address] [place] [address] * D-dimer, quantitative (07/05/2024 1:51 PM EDT) Blood Venous blood specimen / Unknown Historical Provider LAB BLOOD ORDERABLES Becky l Result from Last 3 Months Insurance [employer] MED[employer]ARE ADVANTAGE MEDICAID [place] Advance Directives * Full Code (Latest Code Status on File) Date Activated Date Inactivated Comments 07/06/2024 8:01 AM 07/09/2024 8:24 PM Care Teams Valve Inspector Relationship Specialty Start Date End Date Bee Moya MD [id number] [place], [place] [id number] PCP - General Internal Medicine 07/06/24
--- OUTSIDE RECORDS SUMMARY | 2024-08-12 15:09 | XMS_ITS | Referral Summary ---
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 (Primary Dx); Status post insertion of drug eluting coronary artery stent; Heart failure with mildly reduced ejection fraction (CMS/HCC); Mixed hyperlipidemia; Inappropriate sinus tachycardia; History of pulmonary embolism 07/17/2024 Orders Only [address] [id number] ProviderZoran MD 07/06/2024 6:00 AM EDT - 07/09/2024 6:23 PM EDT Hospital Encounter [facility] [address] [place] [address] Jan Kelly MD Sanaullah, Babar, MD Iqbal, Amna, MD Spencer, Caleb T, MD NSTEMI (non-ST elevated myocardial infarction) (CMS/HCC) (Primary Dx); Primary hypertension; Hemoptysis Discharge Disposition: Home or Self Care () 07/06/2024 5:21 PM EDT - 07/06/2024 6:21 PM EDT Surgery [facility] [address] [place] [address] Benjamin Dang MD Percutaneous coronary intervention 07/06/2024 Travel from Last 3 Months Allergies Active Allergy Reactions Criticality Noted Date [...] CO 7.48 L/min based on RHC at [facility] 02/2024 multifactorial in the setting of history of PE, mediastinal radiation and post radiation fibrosis, bronchiectasis Assessment & Plan (07/08/2024 12:10 PM EDT): Mild pulmonary hypertension mPAP 22, PVR 1.74 morillo, pcwp 4, CO 7.48 L/min based on RHC at [facility] 02/2024 multifactorial in the setting of history of PE, mediastinal radiation and post radiation fibrosis, bronchiectasis Assessment & Plan (07/07/2024 4:34 PM EDT): Mild pulmonary hypertension mPAP 22, PVR 1.74 morillo, pcwp 4, CO 7.48 L/min based on RHC at [facility] 02/2024 multifactorial in the setting of history [...] (07/20/2024): Added automatically from request for surgery [id number] Asymptomatic premature menopause 09/05/2016 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 Protocol(s): IRB #3422 BU/Cy/INFRASTRUCTURE ARCHITECT Preparative regimen: Bu/Cy/INFRASTRUCTURE ARCHITECT Mobilization regimen: G+P Stem cell source: Apheresis CD34 cell dose (x10e6/kg): 6.17. Date of transplant: 03/25/2013 Social History Tobacco Use Types Packs/Day Years Used Date Smoking Tobacco: Former Cigarettes Smokeless Tobacco: Never Tobacco Cessation:Counseling Given: Not Answered Alcohol Use Standard Drinks/Week Comments Yes 0 (1 standard drink = 0.6 oz pur e alcohol) occasional C Utilities Answer Date Recorded In the past 12 months has [employer], gas, oil, or water [employer] threatened to shut off services in your [...] any time in the past 12 m [facility], were you homeless or living in a senior living (including now)? No 07/06/2024 Hunger Vital Sign [...] Description 11/09/2024 9:00 AM EDT Office Visit [facility] [address] [place] [address] Temo Yu MD [address] [facility] [address] [facility] [id number] Medical Devices Implanted Type Area Deadener Device Identifier Shelf Expiration Date Model / Serial / Lot Stent,Synergy Mr 3.00 X 28 - [id number] Implanted:Qty : 1 on 07/06/2024 by Benjamin Dang MD at [facility] Drug Eluting Stent N/A: [employer] [id number] 12/08/2025 [id number] / / [id number] Stent,Synergy Mr 2.50 X 12 - [id number] Implanted:Qty : 1 on 07/06/2024 by Benjamin Dang MD at [facility] Drug Eluting Stent N/A: [employer] [id number] 09/16/2025 [id number] / / [id number] Procedures Procedure Name Priority Date/Time Associated Diagnosis [...] Binta Reeder MD IMG CV VASCULAR PROCEDURES Fin al Result * CTA Chest W IV [...] - 145 mmol/L 07/09/2024 8:50 AM EDT [facility] ([facility]) Potassium 4.3 3.5 - 5.1 mmol/L 07/09/2024 8:50 AM EDT [facility] ([facility]) Chloride 101 98 - 107 mmol/L 07/09/2024 8:50 AM EDT [facility] ([facility]) CO2 31 21 - 31 mmol/L 07/09/2024 8:50 AM EDT [facility] ([facility]) BUN 10 7 - 25 mg/dL 07/09/2024 8:50 AM T [facility] ([facility]) Creatinine 0.60 0.60 - 1.20 mg/dL 07/09/2024 8:50 AM T [facility] ([facility]) Glucose 158(H) 70 - 100 mg/dL 07/09/2024 8:50 AM T [facility] ([facility]) Calcium 9.3 8.6 - 10.3 mg/dL 07/09/2024 8:50 AM EDT [facility] ([facility]) Anion Gap 10 7 - 20 mmol/L 07/09/2024 8:50 AM EDT [facility] ([facility]) eGFR 115.6 >60.0 mL/min/1. 73m*2 07/09/2024 8:50 AM EDT [facility] ([facility]) Comment:[facility] s estimated glomerular filtration rate (eGFR) will [...] BUN/Creatinine Ratio 16.7 06/19 8:50 AM EDT [facility] ([facility]) Blood Venous blood specimen / Unknown Venipuncture / Unknown 07/09/2024 8:24 AM EDT 07/09/2024 8:27 AM EDT us Kayden Carrillo MD LAB BLOOD ORDERABLES Final Re sult [facility]) [address] [id number] * (ABNORMAL) CBC (07/09/2024 6:46 AM EDT) Only the most recent of5 resultswithin the time period is included. Auto WBC 14.54(H) 4.00 - 10.60 10*3/uL 07/09/2024 7:23 AM EDT [facility] ([facility]) RBC 4.62 3.80 - 5.00 10*6/uL 07/09/2024 7:23 AM EDT [facility] ([facility]) Hemoglobin 14.3 12.0 - 15.0 g/dL 07/09/2024 7:23 AM EDT [facility] ([facility]) Hematocrit 43.5 36.0 - 45.0 % 07/09/2024 7:23 AM EDT [facility] ([facility]) MCV 94.2 82.0 - 98.0 fL 07/09/2024 7:23 AM EDT [facility] ([facility]) MCH 31.0 27.0 - 33.0 pg 07/09/2024 7:23 AM EDT [facility] ([facility]) MCHC 32.9 32.0 - 35.0 g/dL 07/09/2024 7:23 AM EDT [facility] ([facility]) RDW 12.7 11.5 - 15.0 % 07/09/2024 7:23 AM EDT [facility] ([facility]) Platelets 320 150 - 400 10*3/uL 07/09/2024 7:23 AM EDT [facility] ([facility]) Blood Venous blood specimen / Unknown Venipuncture / Unknown 07/09/2024 6:46 AM EDT 07/09/2024 6:52 AM EDT us Jan Kelly MD LAB BLOOD ORDERABLES Final Resul t [facility] ([facility]) [address] [id number] * MRA head wo IV contrast (07/08/2024 [...] signed: LORIN BRANDT MD. Farrah Mendez MD [facility] MRI PROCEDURES Final Result * MR brain [...] accounting for motion artifact. Electronically signed: LORIN BRADNT MD. us Farrah Mendez MD IMG MRI PROCEDURES Final Result * Red Top (07/08/2024 1:33 PM EDT) Pathologist [facility] Extra Tube Hold for add-ons. 07/08/2024 3:01 PM EDT [facility] ([facility]) Comment:Auto resulted. Blood Venous blood specimen / Unknown 07/08/2024 1:33 PM EDT 07/08/2024 1:39 PM EDT Taya Valdez MD LAB BLOOD ORDERABLES Final Resul t [facility] ([facility]) [address] [place] [address] * (ABNORMAL) Anti-Xa (Heparin Level) (07/08/2024 1:33 PM EDT) Only the most recent of5 resultswithin the time period is included. Anti-Xa (Heparin) 0.11(LL) 0.3 - 0.7 IU/mL 07/08/2024 2:15 PM EDT [facility] ([facility]) Comment:Rivaroxaban and Apix aban will interfere with the anti Xa assay used to monitor UFH and LMWH. Blood Venous blood specimen / Unknown Venipuncture / Unknown 07/08/2024 1:33 PM EDT 07/08/2024 1:38 PM EDT us Taya Valdez MD LAB BLOOD ORDERABLES Final Resul t Performing Organization Address City/[facility]/ZIP Co de Phone Number [facility] ([facility]) [address] [place], [place] [id number] * Hepatic function panel (07/08/2024 1:33 PM EDT) Total Bilirubin 0.8 0.3 - 1.0 mg/dL 07/08/2024 2:17 PM EDT [facility] ([facility]) Bilirubin, Direct 0.2 0 - 0.2 mg/dL 07/08/2024 2:17 PM EDT [facility] ([facility]) Alkaline Phosphatase 49 34 - 104 U/L 07/08/2024 2:17 PM EDT [facility]) AST 27 13 - 39 U/L 07/08/2024 2:17 PM EDT [facility]) ALT (SGPT) 27 7 - 52 U/L 07/08/2024 2:17 PM EDT [facility]) Total Protein 6.3 6.0 - 8.3 g/dL 07/08/2024 2:17 PM EDT [facility]) Albumin 3.8 3.5 - 5.7 g/dL 07/08/2024 2:17 PM EDT [facility]) Blood Venous blood specimen / Unknown Venipuncture / Unknown 07/08/2024 1:33 PM EDT 07/08/2024 1:50 PM EDT us Farrah Mendez MD LAB BLOOD ORDERABLES Final Resul t [facility] ([facility]) [address] [place] [address] * aPTT - baseline (07/07/2024 6:02 PM EDT) Only the most recent of2 resultswithin the time period is included. aPTT 26.2 25.0 - 35.0 Seconds 07/07/2024 6:55 PM EDT [facility] ([facility]) Comment:Clinical significanc e of the APTT is questionable in the presence of heparin. Blood Venous blood specimen / Unknown Venipuncture / Unknown 07/07/2024 6:02 PM EDT 07/07/2024 6:55 PM EDT us Taya Valdez MD LAB BLOOD ORDERABLES Final Resul t Performing Organization Address City/[facility] Co de Phone Number [facility] ([facility]) [address] [place], [place] [id number] * Platelet count (07/07/2024 6:02 PM EDT) Platelets 304 150 - 400 10*3/uL 07/07/2024 6:50 PM EDT [facility] ([facility]) Blood Venous blood specimen / Unknown Venipuncture / Unknown 07/07/2024 6:02 PM EDT 07/07/2024 6:39 PM EDT us Taya Valdez MD LAB BLOOD ORDERABLES Final Resul t Performing Organization Address [facility] de Phone Number [facility]) [address] [place], [place] [phone] * CT head wo IV contrast (07/07/2024 [...] Clinical correlationrecommended. Approved by:Jose Charlton07/07/2024 6:30 PM. Carlo Hull,have reviewed the image(s) and agree with the [...] infectious process. Approved by:Carlo Steward07/08/2024 12:04 AM. Vin Hull MD,have reviewed the image(s) and agree with [...] infectious process. Approved by:Carlo Steward07/08/2024 12:04 AM. Vin Hull MD,have reviewed the image(s) and agree with the findingsin this report. Electronically signed: Vin Oglesby MD. Binta Reeder MD IMG CT PROCEDURES Final [...] beentirely excluded. Electronically signed: Dionicio Cantu MD. us Taya Valdez MD IMG XR PROCEDURES Final Result * (ABNORMAL) High Sensitivity Troponin I (07/06/2024 11:10 PM EDT) Only the most recent of3 resultswithin the time period is included. High Sensitivity Troponin I 3,570(HH) <15 ng/L 07/07/2024 12:17 AM EDT [facility] ([facility]) Blood Venous blood specimen / Unknown Venipuncture / Unknown 07/06/2024 11:10 PM EDT 07/06/2024 11:36 PM EDT us Jhonny Guillen MD LAB BLOOD ORDERABLES Final Re sult [facility] ([facility]) [address] [place] [address] * Light Blue Top (07/06/2024 11:10 PM EDT) Pathologist [facility] Extra Tube Hold for add-ons. 07/07/2024 1:01 AM EDT [facility] ([facility]) Comment:Auto resulted. Blood Venous blood specimen / Unknown Venipuncture / Unknown 07/06/2024 11:10 PM EDT 07/06/2024 11:37 PM EDT us Jhonny Guillen MD LAB BLOOD ORDERABLES Final Re sult Performing Organization Address City/[facility]/ZIP Co de Phone Number [facility] ([facility]) [address] [place] [address] * ECG 12 lead (07/06/2024 5:40 PM EDT) Only the most recent of4 resultswithin the time period is included. Ventricular Rate 106 BPM GE MUSE Atrial Rate 106 BPM GE MUSE WI Interval 162 ms GE MUSE QRS DURATION 100 ms GE MUSE QT Interval 336 ms GE MUSE QTC CALCULATION(BAZE TT) 446 ms GE MUSE P [place] 54 degrees GE MUSE R-[place] -27 degrees GE MUSE T Wave [place] 8 degrees GE MUSE 07/06/2024 5:23 PM EDT 07/06/2024 7:52 PM EDT Impressions GE MUSE - 07/06/2024 7:52 PM EDT Sinus tachycardia Minimal voltage criteria for LVH, may be normal variant ( [place] product ) Cannot rule out Anterior infarct , age undetermined Inferior infarct (cited on or before 06-JUL-2024) Abnormal ECG When compared with ECG of 06-JUL-2024 09:29, No significant change was found Confirmed by Temo Yu ([id number]) on 07/06/2024 7:52:26 PM Narrative Procedure Note Temo Yu MD - 07/06/2024 IMPRESSION: Sinus tachycardia Minimal voltage criteria for LVH, may be normal variant ( Yan product ) Cannot rule out Anterior infarct , age undetermined Inferior infarct (cited on or before 06-JUL-2024) Abnormal ECG When compared with ECG of 06-JUL-2024 09:29, No significant change was found Confirmed by Temo Yu (70) on 07/06/2024 7:52:26 PM us Benjamin Dang MD ECG ORDERABLES Final Resu lt [facility] * COMPLETE ECHO (TTE) W/ IMAGING AGENT (07/06/2024 4:03 PM EDT) Anatomical Region Laterality Modality Other 07/06/2024 3:45 PM EDT Narrative 07/06/2024 4:17 PM EDT 1 [facility] Heart Station [address] [facility] [place] [address] [phone] (fax) Echocardiogram-[facility] Name: CELSO WELLER Study Date: 07/06/2024 03:45 PM B/P: 94 mmHg/68 mmHg HR: 103 bpm Date of : 1980 Location: [facility] Height: 72 in. Age: 43 year(s) [...] No pericardial effusion. Procedure Staff Reading Group: [facility] Biological Science Technician Fish: Andrew Tellez RDCS Ordering Physician: [id number] Wall Motion Scores -1 - hyperkinesia, 0 - not evaluated, 1 - normal, 2 - hypokinesia, 3 - akinesia, 4 - dyskinesia Procedure Note Tahmina Tucker MD - 07/06/2024 1 1 [facility] Heart Station [address] [facility] [place] [address] [phone] (fax) Echocardiogram-[facility] Name: CELSO WELLER Study Date: 07/06/2024 03:45 PM B/P: 94 mmHg/68 mmHg HR: 103 bpm Date of : 1980 Location: [facility] Height: 72 in. Age: 43 year(s) [...] No pericardial effusion. Procedure Staff Reading Group: [facility] Biological Science Technician Fish: Andrew Tellez RDCS Ordering Physician: [id number] Wall Motion Scores -1 - hyperkinesia, 0 [...] presents with a history of non-ST elevation [place] Final Impression: 1) Successful drug eluting stent [...] infiltrated over the right radial artery. A 6-Kazakh sheath was placed in right radial artery. [...] was maintained at >250 seconds. A 6 Kazakh XB3 was engaged to the L main. A BMW guidewire was placed in the mid LAD but would not cross the lesion. Thus a Runthrough then a PT2 was placed in the left anterior descending the lesion was treated with a Emerge 2.5x15 at 10 travis and a Synergy 3x28 drug-eluting stent was placed. An [facility] IVUS was performed. 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 Taya Valdez MD POINT OF CARE TEST ENTER/EDIT OR DERABLES Final Result * POCT , urine manually resulted (07/06/2024 12:14 PM EDT) [facility] Preg Test, Ur Negative QC Pass/Fail Passed QC LOT # [id number] QC Expiration Date 04/05/2025 Urine 07/06/2024 12:1 4 PM EDT Jhonny Guillen MD POINT OF CARE TEST ENTER/EDIT ORDERABLES Final Result * hCG, quantitative, (07/06/2024 8:18 AM EDT) [facility] hCG Quant 5 mIU/L 07/06/2024 11:48 AM EDT [facility] ([facility]) Comment: FEMALE REFERENCE RANGES: NON 0-5 4 WKS SINCE PERIOD 3-426 5 WKS SINCE PERIOD 7340 6 WKS SINCE PERIOD 1080-56,500 10 WKS SINCE PERIOD 54,100-288,000 18 WKS SINCE PERIOD 8,910-66,000 31 WKS SINCE PERIOD 5,310-27,400 MALE REFERENCE RANGE: 0-2 Blood Venous blood specimen / Unknown Venipuncture / Unknown 07/06/2024 8:18 AM EDT 07/06/2024 8:29 AM EDT Jhonny Guillen MD LAB BLOOD ORDERABLES Final Re sult [facility] ([facility]) [address] [place] [address] * (ABNORMAL) B-type natriuretic peptide (07/06/2024 8:18 AM EDT) Only the most recent of2 resultswithin the time period is included. BNP 441(H) 0 - 100 pg/mL 07/06/2024 10:24 AM EDT [facility] ([facility]) Blood Venous blood specimen / Unknown Venipuncture / Unknown 07/06/2024 8:18 AM EDT 07/06/2024 8:30 AM EDT Loy Sweet MD LAB BLOOD ORDERABLES Final Resul t Performing Organization Address City/[facility]/ZIP Co de Phone Number [facility] ([facility]) [address] [place] [address] * Hemoglobin A1c (07/06/2024 8:18 AM EDT) Hemoglobin A1C 5.8 4.0 - 6.0 % 07/06/2024 11:56 AM EDT [facility] ([facility]) Estimated Average Glucose 120 mg/dL 07/06/2024 11:56 AM EDT [facility] ([facility]) Blood Venous blood specimen / Unknown Venipuncture / Unknown 07/06/2024 8:18 AM EDT 07/06/2024 8:30 AM EDT Loy Sweet MD LAB BLOOD ORDERABLES Final Resul t [facility] ([facility]) [address] [place] [address] * (ABNORMAL) Lipid panel (07/06/2024 8:18 AM EDT) Triglycerides 117 <150 mg/dL 07/06/2024 9:10 AM EDT [facility] ([facility]) Comment: TRIGLYCERIDE REFERENCE RANGE: 20 YEARS AND OLDER CARDIOVASCULAR RISK LESS THAN 150 mg/dL LOW RISK 150 TO 199 mg/dL BORDERLINE RISK 200 mg/dL AND GREATER HIGH RISK Cholesterol 225(H) 120 - 200 mg/dL 07/06/2024 9:10 AM EDT [facility] ([facility]) LDL Calculated 145 0 - 160 mg/dL 07/06/2024 9:10 AM EDT [facility] ([facility]) HDL 57 23 - 92 mg/dL 07/06/2024 9:10 AM EDT [facility] ([facility]) Non HDL Cholesterol 168 07/06/2024 9:10 AM EDT [facility] ([facility]) Total VLDL-C 23 0 - 40 mg/dL 07/06/2024 9:10 AM EDT [facility] ([facility]) Cholesterol/HDL Ratio 3.9 mg/dL 07/06/2024 9:10 AM EDT [facility] ([facility]) Blood Venous blood specimen / Unknown Venipuncture / Unknown 07/06/2024 8:18 AM EDT 07/06/2024 8:29 AM EDT Loy Sweet MD LAB BLOOD ORDERABLES Final Resul t [facility] ([facility]) [address] [place], [place] [id number] * D-dimer, quantitative (07/05/2024 1:51 PM EDT) Blood Venous blood specimen / Unknown Historical Provider LAB BLOOD ORDERABLES Becky haney Result from Last 3 Months Insurance [employer] MEDICARE ADVANTAGE MEDICAID [place] Advance Directives * Full Code (Latest Code Status on File) Date Activated Date Inactivated Comments 07/06/2024 8:01 AM 07/09/2024 8:24 PM Care Teams Peanut Picker Relationship Specialty Start Date End Date Bee Moya MD [address] [place] [address] PCP - General Internal Medicine 07/06/24
--- OUTSIDE RECORDS SUMMARY | 2024-08-12 15:09 | XMS_ITS | Encounter Summary ---
Author Organization [facility] Address [address] [facility] [place] [address] Care Team Providers Care Quilting Machine Helper Name Role Phone Bee Moya MD Primary Care Provider [phone] Bee Moya MD Unavailable [phone] Encounter Details Date Type Department Care Team (Late Contact Info) Description 11/21/2023 Clinisync Result Encounter NOMS External Department Unsolicited [...] Upcoming Encounters Date Type Department Care Team ([facility] Contact Info) Description 09/09/2024 10:20 AM EDT Office Visit [facility] B[facility] OB [address] [place] [address] Cristine Azul NP [address] [place] [address] 09/10/2024 9:30 AM EDT Office Visit [facility] LPS IM [address] [place] [address] Lina Charles, MANAGER FOREIGN [address] [place] [address] 08/19/2025 11:00 AM EDT Office Visit [facility] BCP OB [address] [facility] [place] [address] Sebastina Montiel, DO [address] [place] [address] documented as of this encounter Procedures Procedure Name Priority Date/Time Associated Diagnosis Comments XR CHEST 2V FRONTAL/LAT 11/21/2023 9:15 AM EDT [facility] CBC W AUTO DIFF BLD Routine 11/21/2023 9:08 AM EDT [facility] COMP METAB 2000 PNL SERPL Routine 11/21/2023 9:08 AM EDT documented in this encounter Results * XR CHEST 2V FRONTAL/LAT (11/21/2023 9:15 AM EDT) Anatomical Region Laterality Modality Other 11/21/2023 9:15 AM EDT Narrative 11/21/2023 12:08 PM EDT * * *Final Report* * * DATE OF EXAM: Nov 21 2023 9:15AM [id number] - XR CHEST 2V FRONTAL/LAT / PROCEDURE REASON: Pneumonia due to infectious organism, unspecified laterality, unspecified part o * * * * Physician Interpretation * * * * EXAMINATION: CHEST RADIOGRAPH (2 VIEW FRONTAL and LATERAL) CLINICAL HISTORY: Pneumonia due to infectious [...] silhouette. Bones and soft tissues: Unremarkable. IMPRESSION: 1. No interval change since 05/31/23. 2. Bilateral perihilar consolidative opacities, left greater than right, most likely related to post radiation change, stable. Solids Control Technician: DEDE Transcribe Date/Time: Nov 21 2023 11:58A Dictated by : YOGESH DAVIS MD This examination was interpreted and the report reviewed and electronically signed by: YOGESH DAVIS MD on Nov 21 2023 12:06PM EST [id number]^ACN Procedure Note Radiology, Radiologist, - 11/21/2023 * * *Final Report* * * DATE OF EXAM: Nov 21 2023 9:15AM [id number] - XR CHEST 2V FRONTAL/LAT / PROCEDURE REASON: Pneumonia due to infectious organism, unspecified laterality, unspecified part o * * * * Physician Interpretation * * * * EXAMINATION: CHEST RADIOGRAPH (2 VIEW FRONTAL and LATERAL) CLINICAL HISTORY: Pneumonia due to infectious [...] silhouette. Bones and soft tissues: Unremarkable. IMPRESSION: 1. No interval change since 05/31/23. 2. Bilateral perihilar consolidative opacities, left greater than right, most likely related to post radiation change, stable. Solids Control Technician: DEDE Transcribe Date/Time: Nov 21 2023 11:58A Dictated by : YOGESH DAVIS MD This examination was interpreted and the report reviewed and electronically signed by: YOGESH DAVIS MD on Nov 21 2023 12:06PM EST [id number]^[id number]^SI^ACN us Generic External Data Provider [facility] Final Result * (ABNORMAL) [facility] COMP METAB 2000 PNL SERPL (11/21/2023 9:08 AM EDT) [facility] PROT SERPL-[facility] 6.8 6.3 - 8.0 g/dL [facility] ALBUMIN SERPL-[facility] 4.3 3.9 - 4.9 g/dL [facility] CALCIUM SERPL-[facility] 9.4 8.5 - 10.2 mg/dL [facility] BILIRUB SERPL-[facility] 0.4 0.2 - 1.3 mg/dL [facility] ALP SERPL-[facility] 57 34 - 123 U/L [facility] AST SERPL-[facility] 28 13 - 35 U/L [facility] ALT SERPL-[facility] 39(H) 7 - 38 U/L [facility] GLUCOSE SERPL-[facility] 87 74 - 99 mg/dL [facility] Comment: The [place] Diabetes Association (ADA) provides guidance for cutoff [...] Standards of Medical Care in Diabetes 2016, [place] Diabetes Association. Diabetes Care. 2016.39(Suppl 1). [facility] BUN SERPL-[facility] 15 7 - 21 mg/dL [facility] CREAT SERPL-[facility] 0.71 0.58 - 0.96 mg/dL [facility] SODIUM SERPL-[facility] 141 136 - 144 mmol/L [facility] POTASSIUM SERPL-SCNC 4.2 3.7 - 5.1 mmol/L [facility] CHLORIDE SERPL-SC[facility] 103 98 - 107 mmol/L [facility] CO2 SERPL-[facility] 29 22 - 30 mmol/L [facility] ANION GAP SERPL-SC[facility] 9 8 - 15 mmol/L [facility] CREATININE + EGFR PNL SERPLBLD 110 >=60 mL/min/1.7 3m??? [facility] Comment:Estimated Glomerular Filtration [...] eGFR may not accurately reflect actual GFR. 11/21/2023 9:08 AM EDT 11/21/2023 12:39 PM EDT Narrative [facility] - 11/21/2023 5:23 PM EDT Specimen Type: BLOOD SPECIMEN Ordering Facility: [facility] Address: [address] [place] [address] Original Ordering Provider: LINETTE LOPEZ us Generic External Data Provider MELVIN bradford Result [facility] [address] [facility] [place] [address] * [facility] CBC W AUTO DIFF BLD (11/21/2023 9:08 AM EDT) [facility] WBC # BLD AUTO 9.32 3.70 - 11.00 k/uL [facility] RBC # BLD AUTO 4.69 3.90 - 5.20 m/uL [facility] HGB BLD-[facility] 14.7 11.5 - 15.5 g/dL [facility] HCT VFR BLD AUTO 45.9 36.0 - 46.0 % [facility] MCV RBC AUTO 97.9 80.0 - 100.0 fL [facility] MCH RBC QN AUTO 31.3 26.0 - 34.0 pg CCF [facility] MCHC RBC AUTO-MCNC 32.0 30.5 - 36.0 g/dL [facility] RDW RBC-RTO 14.2 11.5 - 15.0 % [facility] PLATELET # BLD AUTO 330 150 - 400 k/uL [facility] PMV BLD AUTO 9.5 9.0 - 12.7 fL [facility]CF [facility] NEUTROPHILS/LEUK NFR BLD AUTO 75.0 % [facility] NEUTROPHILS # BLD AUTO 6.99 1.45 - 7.50 k/uL [facility] LYMPHOCYTES/LEUK NFR BLD AUTO 16.0 % [facility] CCF LYMPHOCYTES # BLD AUTO 1.49 1.00 - 4.00 k/uL [facility]CF MONOCYTES/LEUK NFR BLD AUTO 7.0 % [facility] CCF MONOCYTES # BLD AUTO 0.65 <0.87 k/uL [facility]CF EOSINOPHIL/LEUK NFR BLD AUTO 1.2 % [facility] CCF EOSINOPHIL # BLD AUTO 0.11 <0.46 k/uL [facility] BASOPHILS/LEUK NFR BLD AUTO 0.3 % [facility] CCF BASOPHILS # BLD AUTO 0.03 <0.11 k/uL [facility] IMM GRANULOCYTES/LEUK NFR BLD AUTO 0.5 % [facility] IMM GRANULOCYTES # BLD AUTO 0.05 <0.10 k/uL [facility] NRBC/100 WBC BLD-RTO 0.0 /100 WBC [facility] CCF NRBC # BLD AUTO <0.01 <0.01 k/uL [facility] DIFFERENTIAL METHOD BLD Auto [facility] 11/21/2023 9:08 AM EDT 11/21/2023 12:43 PM EDT Narrative [facility] - 11/21/2023 1:41 PM EDT Specimen Type: BLOOD SPECIMEN Ordering Facility: [facility] Address: [address] [place] [address] Original Ordering Provider: LINETTE LOPEZ us Generic External Data Provider [facility] F inal Result [facility] [address] [facility] [address] [place] [address] documented in this encounter Visit Diagnoses Not on filedocumented in this encounter Additional Health Concerns Assessment Noted Time PHQ-9 Depression Total Score: 2 08/26/19 24 9:00 AM EDT documented as of this encounter Care Teams Quilting Machine Helper Relationship Specialty Start Date End Date Bee Moya MD [address] [place] [address] PCP - General Internal Medicine 06/26/22 Bee Moya MD [address] [place], [place] [id number] PCP - [employer] 10/19/21 Dr. Ledezma Referring Physician Oncology 08/08/23 Dr. Elliott Referring Physician Cardiology 08/08/23 Dr. Clemons Referring Physician Rheumatology 08/08/23 Dr. Becerril Referring Physician Pulmonary Disease 08/08/23 Dr. Franco Referring Physician Otolaryngology 08/08/23 Emely Bonilla Referring Physician Palliative Medicine 08/08/23 documented as of this encounter
--- OUTSIDE RECORDS SUMMARY | 2024-08-12 15:09 | XMS_ITS | Encounter Summary ---
Author Organization [facility] Address [address] [facility] [place] [address] Care Team Providers Care Chinese Teacher Name Role Phone Bee Moya MD Primary Care Provider [phone] Bee Moya MD Unavailable [phone] Encounter Details Date Type Department Care Team [...] EDT Office Visit [facility] [address] [facility] [place] [address] Cristine Azul NP [address] [place] [address] 09/10/2024 9:30 AM EDT Office Visit [facility] IM [address] [place] [address] Lina Charles, ROUTE SALES DELIVERY DRIVER [address] [place] [address] 08/19/2025 11:00 AM EDT Office Visit [facility] BCP OB [address] [place] [address] Sebastian Montiel, DO [address] [facility] [place] [address] documented as of this encounter Procedures Procedure Name Priority Date/Time Associated Diagnosis Comments XR SI JTS 2V AP PELV/NEELY 10/09/2023 12:14 PM EDT documented in this encounter Results * XR SI JTS 2V AP PELV/NEELY (10/09/2023 12:14 PM EDT) Anatomical Region Laterality Modality Other 10/09/2023 12:1 4 PM EDT Narrative 10/09/2023 2:41 PM EDT * * *Final Report* * [...] and osteophytes. Small femoral head bone islands. IMPRESSION: 1. Mild degenerative changes at sacroiliac joints. No active sacroiliitis evident Residential Door Unit Installer: [facility] Transcribe Date/Time: Oct 09 2023 2:37P Dictated by : SHANNEN HILLIARD MD This examination was interpreted and the report reviewed and electronically signed by: SHANNEN HILLIARD MD on Oct 09 2023 2:39PM EST [id number]^[id number]^ACN Procedure Note Radiology, Radiologist, - 10/09/2023 * * *Final Report* * * DATE OF EXAM: Oct 09 2023 12:14PM [id number] - XR SI JTS 2V AP PELV/FLORINDA / PROCEDURE REASON: Polyarthralgia * * * * Physician Interpretation * * * * Sacroiliac joint radiographs HISTORY: Polyarthralgia TECHNIQUE: 2 views of the sacroiliac joints COMPARISON: None available FINDINGS: No sacroiliac joint erosions, reactive sclerosis or bone fusion. Mild inferior osteophytes. The remainder the sacrum and coccyx appearintact. Mild bilateral hip joint space narrowing superiorly and osteophytes. Small femoral head bone islands. IMPRESSION: 1. Mild degenerative changes at sacroiliac joints. No active sacroiliitis evident Residential Door Unit Installer: [facility]SCEdwin Transcribe Date/Time: Oct 09 2023 2:37P Dictated by : SHANNEN HILLIARD MD This examination was interpreted and the report reviewed and electronically signed by: SHANNEN HILLIARD MD on Oct 09 2023 2:39PM EST [id number]^[email or web address]^SI^ACN us Generic External Data Provider [facility] Final Result documented in this encounter Visit Diagnoses Not on filedocumented in this encounter Additional Health Concerns Assessment Noted Time PHQ-9 Depression Total Score: 2 08/26/19 24 9:00 AM EDT documented as of this encounter Care Teams Chinese Teacher Relationship Specialty Start Date End Date Bee Moya MD [address] [facility] [place] [address] PCP - General Internal Medicine 06/26/22 Bee Moya MD [address] [facility] [place] [address] PCP - [employer] 10/19/21 Dr. Ledezma Referring Physician Oncology 08/08/23 Dr. Elliott Referring Physician Cardiology 08/08/23 Dr. Clemons Referring Physician Rheumatology 08/08/23 Dr. Becerril Referring Physician Pulmonary Disease 08/08/23 Dr. Franco Referring Physician Otolaryngology 08/08/23 Emely Bonilla Referring Physician Palliative Medicine 08/08/23 documented as of this encounter
--- OUTSIDE RECORDS SUMMARY | 2024-08-12 15:09 | XMS_ITS | Encounter Summary ---
Author Organization [facility] Address [address] [facility] [place] [address] Care Team Providers Care Drama Director Name Role Phone Bee Moya MD Primary Care Provider [phone] Bee Moya MD Unavailable [phone] Encounter Details Date Type Department Care Team (Late Contact Info) Description 12/18/2023 Clinisync Result Encounter NOMS External Department Unsolicited [...] Upcoming Encounters Date Type Department Care Team ([facility] Contact Info) Description 09/09/2024 10:20 AM EDT Office Visit [facility]CP OB [address] [facility] [place] [address] Cristine Azul NP [address] [place] [address] 09/10/2024 9:30 AM EDT Office Visit [facility] IM [address] [place] [address] Lina Charles, LOAN COORDINATOR [address] [place] [address] 08/19/2025 11:00 AM EDT Office Visit [facility] BCP OB [address] [facility] [place] [address] Sebastian Montiel, DO [address] [facility] [place] [address] documented as of this encounter Procedures Procedure Name Priority Date/Time Associated Diagnosis Comments ECG 12-LEAD 12/18/2023 7:31 PM EDT documented in this encounter Results * ECG 12 lead (12/18/2023 7:31 PM EDT) 12/18/2023 7:31 PM EDT Narrative [facility] - 12/19/2023 9:38 AM EDT Ventricular Rate : 101 BPM Atrial Rate : 101 BPM P-R Interval : 168 ms QRS Duration : 102 ms Q-T Interval : 354 ms QTC Calculation(Bazett) : 459 ms Calculated P [place] : 59 degrees Calculated R [place] : -38 degrees Calculated T [place] : 30 degrees Sinus tachycardia Left axis deviation Minimal voltage criteria for LVH, may be normal variant Cannot rule out Anterior infarct , age undetermined Abnormal ECG 1937 NO STEMI Confirmed by SAEED HUDDLESTON MD ([id number]), department editor SHERIN DELACRUZ ([id number]) on 12/19/2023 9:38:42 AM NAME : CELSO POTTS PID : [id number] : 1980 Gender : Female Race : ORD : [id number] Procedure Date : Dec 18 2023 19:31:27 Edit Date : Dec 19 2023 09:38:44 Diagnosis: Sinus tachycardia Left axis deviation Minimal voltage criteria for LVH, may be normal variant Cannot rule out Anterior infarct , age undetermined Abnormal ECG 1937 NO STEMI Confirmed by SAEED HUDDLESTON MD ([id number]), department editor SHERIN DELACRUZ ([id number]) on 12/19/2023 9:38:42 AM Test Reason : Chest Pain Location : 302 : ED ED Overread By : SAEED HUDDLESTON MD Edited By : SHERIN DELACRUZ Referred By : , Acquired by : [id number], Procedure Note Radiology, Radiologist, MD - 12/19/2023 Ventricular Rate : 101 BPM Atrial Rate : 101 BPM P-R Interval : 168 ms QRS Duration : 102 ms Q-T Interval : 354 ms QTC Calculation(Bazett) : 459 ms Calculated P [place] : 59 degrees Calculated R [place] : -38 degrees Calculated T [place] : 30 degrees Sinus tachycardia Left axis deviation Minimal voltage criteria for LVH, may be normal variant Cannot rule out Anterior infarct , age undetermined Abnormal ECG 1937 NO STEMI Confirmed by SAEED HUDDLESTON MD ([id number]), department editor SHERIN DELACRUZ ([id number]) on12/19/2023 9:38:42 AM NAME : CELSO POTTS PID : [id number] : 1980 Gender : Female Race : ORD : [id number] Procedure Date : Dec 18 2023 19:31:27 Edit Date : Dec 19 2023 09:38:44 Diagnosis: Sinus tachycardia Left axis deviation Minimal voltage criteria for LVH, may be normal variant Cannot rule out Anterior infarct , age undetermined Abnormal ECG 1937 NO STEMI Confirmed by SAEED HUDDLESTON MD ([id number]), department editor SHERIN DELACRUZ ([id number]) on12/19/2023 9:38:42 AM Test Reason : Chest Pain Location : 302 : ED ED Overread By : SAEED HUDDLESTON MD Edited By : SHERIN DELACRUZ Referred By : , Acquired by : [id number], us Generic External Data Provider ECG ORDERABLES F inal Result Performing Organization Address City/State/[facility] Co de Phone Number [facility] documented in this encounter Visit Diagnoses Not on filedocumented in this encounter Additional Health Concerns Assessment Noted Time PHQ-9 Depression Total Score: 5 11/28/19 24 8:00 AM EDT documented as of this encounter Care Teams Drama Director Relationship Specialty Start Date End Date Bee Moya MD [address] [facility] [place] [address] PCP - General Internal Medicine 06/26/22 Bee Moya MD [address] [facility] [place] [address] PCP - [employer] 10/19/21 Dr. Ledezma Referring Physician Oncology 08/08/23 Dr. Elliott Referring Physician Cardiology 08/08/23 Dr. Clemons Referring Physician Rheumatology 08/08/23 Dr. Becerril Referring Physician Pulmonary Disease 08/08/23 Dr. Franco Referring Physician Otolaryngology 08/08/23 Emely Bonilla Referring Physician Palliative Medicine 08/08/23 documented as of this encounter
--- OUTSIDE RECORDS SUMMARY | 2024-08-12 15:09 | XMS_ITS | Encounter Summary ---
Author Organization [facility] Address [address] [facility] [place] [address] Care Team Providers Care Insurance Verifier Name Role Phone Bee Moya MD Primary Care Provider [phone] Bee Moya MD Unavailable [phone] Encounter Details Date Type Department Care Team [...] EDT Office Visit [facility]CP OB [address] [facility] [place] [address] Cristine Azul NP [address] [place] [address] 09/10/2024 9:30 AM EDT Office Visit [facility] IM [address] [place] [address] Lina Charles, MOTOR EQUIPMENT SERGEANT [address] [place] [address] 08/19/2025 11:00 AM EDT Office Visit [facility] BCP OB [address] [facility] [address] Sebastian Montiel, DO [address] [facility] [place] [address] documented as of this encounter Procedures Procedure Name Priority Date/Time Associated Diagnosis Comments XR HAND 3V PA/LAT/OBL MAJO 10/09/2023 12:14 PM EDT documented in this encounter Results * XR HAND 3V PA/LAT/OBL MAJO (10/09/2023 12:14 PM EDT) Anatomical Region Laterality Modality Other 10/09/2023 12:1 4 PM EDT Narrative 10/09/2023 2:42 PM EDT * * *Final Report* * [...] carpometacarpal joint bilaterally. Soft tissues are unremarkable. IMPRESSION: 1. Minimal osteoarthritis Clinical Psychologist Private Practice: [facility] Transcribe Date/Time: Oct 09 2023 2:39P Dictated by : SHANNEN HILLIARD MD This examination was interpreted and the report reviewed and electronically signed by: SHANNEN HILLIARD MD on Oct 09 2023 2:40PM EST [id number]^AGFA_IDC^SI^ACN Procedure Note Radiology, Radiologist, - 10/09/2023 * [...] carpometacarpal joint bilaterally. Soft tissues are unremarkable. IMPRESSION: 1. Minimal osteoarthritis Clinical Psychologist Private Practice: [facility] Transcribe Date/Time: Oct 09 2023 2:39P Dictated by : SHANNEN HILLIARD MD This examination was interpreted and the report reviewed and electronically signed by: SHANNEN HILLIARD MD on Oct 09 2023 2:40PM EST [id number]^AGFA_IDC^SI^ACN us Generic External Data Provider [facility] Final Result documented in this encounter Visit Diagnoses Not on filedocumented in this encounter Additional Health Concerns Assessment Noted Time PHQ-9 Depression Total Score: 2 08/26/19 24 9:00 AM EDT documented as of this encounter Care Teams Insurance Verifier Relationship Specialty Start Date End Date Bee Moya MD [address] [facility] [place] [address] PCP - General Internal Medicine 06/26/22 Bee Moya MD [address] [facility] [place] [address] PCP - [employer] 10/19/21 Dr. Ledezma Referring Physician Oncology 08/08/23 Dr. Elliott Referring Physician Cardiology 08/08/23 Dr. Clemons Referring Physician Rheumatology 08/08/23 Dr. Becerril Referring Physician Pulmonary Disease 08/08/23 Dr. Franco Referring Physician Otolaryngology 08/08/23 Emely Bonilla Referring Physician Palliative Medicine 08/08/23 documented as of this encounter
--- OUTSIDE RECORDS SUMMARY | 2024-08-12 15:09 | XMS_ITS | Encounter Summary ---
Author Organization [facility] Address [address] [facility] [place] [address] Care Team Providers Care Stitch Separator Name Role Phone Bee Moya MD Primary Care Provider Bee Moya MD Unavailable [phone] Encounter Details Date Type Department Care Team [...] [facility] [address] Cristine Azul NP [address] [place] [address] 09/10/2024 9:30 AM EDT Office Visit [facility] IM [address] [place] [address] Lina Charles, POWDER EXPERT [address] [place] [address] 08/19/2025 11:00 AM EDT Office Visit [facility] BCP OB [address] [facility] [place] [address] Sebastian Montiel, DO [address] [facility] [place] [address] documented as of this encounter Procedures Procedure Name Priority Date/Time Associated Diagnosis Comments XR FOOT 3V AP/LAT/OBL MAJO 10/09/2023 12:14 PM EDT documented in this encounter Results * XR FOOT 3V AP/LAT/OBL MAJO (10/09/2023 12:14 PM EDT) Anatomical Region Laterality Modality Other 10/09/2023 12:1 4 PM EDT Narrative 10/09/2023 2:44 PM EDT * * *Final Report* * [...] subtalar joints are intact. Small calcaneal enthesophytes. IMPRESSION: 1. No erosive arthropathy 2. Bilateral calcaneal enthesophytes Foam Gun Operator: [facility] Transcribe Date/Time: Oct 09 2023 2:40P Dictated by : SHANNEN HILLIARD MD This examination was interpreted and the report reviewed and electronically signed by: SHANNEN HILLIARD MD on Oct 09 2023 2:42PM EST [id number]^AGFA_IDC^SI^ACN Procedure Note Radiology, Radiologist, - 10/09/2023 * [...] subtalar joints are intact. Small calcaneal enthesophytes. IMPRESSION: 1. No erosive arthropathy 2. Bilateral calcaneal enthesophytes Foam Gun Operator: PSCB Transcribe Date/Time: Oct 09 2023 2:40P Dictated by : SHANNEN HILLIARD MD This examination was interpreted and the report reviewed and electronically signed by: SHANNEN HILLIARD MD on Oct 09 2023 2:42PM EST [id number]^AGFA_IDC^SI^ACN us Generic External Data Provider [facility] Final Result documented in this encounter Visit Diagnoses Not on filedocumented in this encounter Additional Health Concerns Assessment Noted Time PHQ-9 Depression Total Score: 2 08/26/19 24 9:00 AM EDT documented as of this encounter Care Teams Stitch Separator Relationship Specialty Start Date End Date Bee Moya MD [address] [facility] [place] [address] PCP - General Internal Medicine 06/26/22 Bee Moya MD [address] [facility] [place] [address] PCP - [employer] 10/19/21 Dr. Ledezma Referring Physician Oncology 08/08/23 Dr. Elliott Referring Physician Cardiology 08/08/23 Dr. Clemons Referring Physician Rheumatology 08/08/23 Dr. Becerril Referring Physician Pulmonary Disease 08/08/23 Dr. Franco Referring Physician Otolaryngology 08/08/23 Emely Bonilla Referring Physician Palliative Medicine 08/08/23 documented as of this encounter
--- OUTSIDE RECORDS SUMMARY | 2024-08-12 15:09 | XMS_ITS ---
Author Organization [facility] Address [address] [place] [address] Care Team Providers Care Bench Inspector Name Role Phone Bee Moya MD Primary Care Provider [phone] Active Problems Problem Noted Date Diagnosed Date [...] CO 7.48 L/min based on RHC at [facility] 02/2024 multifactorial in the setting of history of PE, mediastinal radiation and post radiation fibrosis, bronchiectasis Assessment & Plan (07/08/2024 12:10 PM EDT): Mild pulmonary hypertension mPAP 22, PVR 1.74 morillo, pcwp 4, CO 7.48 L/min based on RHC at [facility] 02/2024 multifactorial in the setting of history of PE, mediastinal radiation and post radiation fibrosis, bronchiectasis Assessment & Plan (07/07/2024 4:34 PM EDT): Mild pulmonary hypertension mPAP 22, PVR 1.74 morillo, pcwp 4, CO 7.48 L/min based on RHC at [facility] 02/2024 multifactorial in the setting [...] (07/20/2024): Added automatically from request for surgery [id number] Asymptomatic premature menopause 09/05/2016 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 Protocol(s): IRB #3422 BU/Cy/BOX TOE MAKER Preparative regimen: Bu/Cy/BOX TOE MAKER Mobilization regimen: G+P Stem cell source: Apheresis CD34 cell dose (x10e6/kg): 6.17. Date of transplant: 03/25/2013 Current Treatment and Therapy Plans No current plan information found. Past Treatment and Therapy Plans No past plan information found. Lifetime Dose Tracking * Chemical Lifetime Dose Automatic Entry Manual Entr y Fluoro Time 16.4 minutes 0 minutes 16.4 minutes Air Kerma 1,279 mGy 0 mGy 1,279 mGy
--- OUTSIDE RECORDS SUMMARY | 2024-08-12 15:09 | XMS_ITS | Encounter Summary ---
Author Organization [facility] Address [address] [facility] [place] [address] Care Team Providers Care Church Business Administrator Name Role Phone Bee Moya MD Primary Care Provider [phone] Bee Moya MD Unavailable [phone] Encounter Details Date Type Department Care Team (Late Contact Info) Description 12/11/2023 Clinisync Result Encounter [facility] External Department Unsolicited [...] Upcoming Encounters Date Type Department Care Team ([facility] Contact Info) Description 09/09/2024 10:20 AM EDT Office Visit [facility] [address] [facility] [place] [address] Cristine Azul NP [address] [place] [address] 09/10/2024 9:30 AM EDT Office Visit [facility] IM [address] [place] [address] Lina Charles, NAIL TECHNICIAN TEACHER [address] [place] [address] 08/19/2025 11:00 AM EDT Office Visit [facility] OB [address] [facility] [place] [address] Sebastian Montiel, DO [address] [facility] [place] [address] documented as of this encounter Procedures Procedure Name Priority Date/Time Associated Diagnosis Comments NM PET/CT SKULL-THIGH SUBQ 12/11/2023 1:28 PM EDT documented in this encounter Results * NM PET/CT SKULL-THIGH SUBQ (12/11/2023 1:28 PM EDT) Anatomical Region Laterality Modality Other 12/11/2023 1:28 PM EDT Narrative 12/15/2023 7:40 PM EDT * * *Final Report* * * DATE OF EXAM: Dec 11 2023 1:28PM NRN [id number] - NM PET/CT SKULL-THIGH SUBQ / PROCEDURE 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 EXAM CATEGORY: Subsequent treatment strategy. TECHNIQUE: Radiopharmaceutical was administered intravenously followed by PET imaging from the eyes to thighs. Free breathing, low dose CT of the same body region was acquired without IV contrast for attenuation correction and anatomic localization. Unenhanced imaging is limited for the evaluation of some pathology and the acquired CT was not designed to produce diagnostic CT scan quality. Physiologic/non-pathologic uptake in some body regions could confound or obscure some pathology. * CT Dose-Length Product (DLP): 308 mGy*cm * CT Dose Reduction Employed: Yes * Blood glucose: 87 mg/dL * Injection site: Right Forearm-Antecubital * Injected activity: 13.9 mCi * Uptake Time: 44 minutes * Radiopharmaceutical: E63-[id number] (FDG) COMPARISON: 05/20/2023 CORRELATION: Outside CT chest 10/29/2023. RESULT: REFERENCES: FDG uptake is used as a surrogate marker for glucose metabolism. All reported standardized uptake values represent maximum SUV (SUVmax) per body weight, unless otherwise specified. SUV reference values, as follows: * Blood Pool (Descending Aorta): SUVmax 2.8 previously 2.8 * Background Liver: SUVmax 4.0 previously 3.6; SUVmean 2.9 previously 2.7 Localizer Images: No additional findings. HEAD AND NECK: Head: No radiotracer avid lesion or mass effect in the imaged intracranial compartment. Aerodigestive Tract: No radiotracer avid lesion. Lymph Nodes: No radiotracer avid lymphadenopathy. Neck Soft Tissues: No radiotracer avid thyroid nodule. CHEST: Lungs and Pleura: Left apical parenchymal irregular opacity without increased uptake grossly stable likely representing chronic atelectatic changes or scarring. No evidence of FDG avid lung lesions. Groundglass changes more prominent in the right upper lobe with no increased uptake likely representing infectious/inflammatory changes. Lymph Nodes: No radiotracer avid lymphadenopathy. Mediastinum: No radiotracer avid mass. Cardiovascular: Blood pool activity. No pericardial effusion. Normal heart size. Chest Wall: No radiotracer avid soft tissue lesion. ABDOMEN AND PELVIS: Hepatobiliary: No radiotracer avid lesion. No measurable mass. Spleen: No radiotracer avid lesion. No splenomegaly. Pancreas: No radiotracer avid lesion. Adrenals: No radiotracer avid nodule. Urinary Tract: Physiologic radiotracer excretion in the renal collecting systems and urinary bladder. No hydronephrosis. GI Tract: No radiotracer avid lesion. No bowel dilation. Peritoneum: No radiotracer avid lesion. No ascites. Lymph Nodes: No radiotracer avid lymphadenopathy. Vasculature: Blood pool activity. Pelvic Organs: No radiotracer avid lesion. MUSCULOSKELETAL: Bones: No radiotracer avid lesion. No lytic or sclerotic lesion. Mild degenerative changes. Soft Tissues: No radiotracer avid lesion. IMPRESSION: Since 05/20/2023, RAMAKRISHNA DISEASE: * No metabolically active lymphadenopathy. EXTRANODAL DISEASE: * No metabolically active extranodal disease. ADDITIONAL FINDINGS: * Grossly stable left apical parenchymal irregular opacity likely representing chronic atelectasis/scarring. * Groundglass changes more prominent in the right upper lobe with no increased uptake likely representing infectious/inflammatory changes. Deauville Score: 1 * Score 1: No uptake above the background * Score 2: Uptake equal to or below mediastinum * Score 3: Uptake above mediastinum but equal to or below liver * Score 4: Uptake slightly to moderately above liver * Score 5: Uptake markedly above liver or a new site of disease * Score X: New area(s) of uptake unlikely to be related to lymphoma Transcribe Date/Time: Dec 15 2023 7:21P Dictated by: PETER CHILDS MD This examination was interpreted and the report reviewed and electronically signed by: PETER CHILDS MD on Dec 15 2023 7:38PM EST Thank you for allowing us to participate in the care of your patient. Should there be any questions regarding this interpretation, please call [phone]. If you are unable to reach us at the number above, please feel free to contact [facility] at [phone]. 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 EXAM CATEGORY: Subsequent treatment strategy. TECHNIQUE: Radiopharmaceutical was administered intravenously followed by PET imaging from the eyes to thighs. Free breathing, low dose CT of the same body region was acquired without IV contrast for attenuation correction and anatomic localization. Unenhanced imaging is limited for the evaluation of some pathology and the acquired CT was not designed to produce diagnostic CT scan quality. Physiologic/non-pathologic uptake in some body regions could confound or obscure some pathology. * CT Dose-Length Product (DLP): 308 mGy*cm * CT Dose Reduction Employed: Yes * Blood glucose: 87 mg/dL * Injection site: Right Forearm-Antecubital * Injected activity: 13.9 mCi * Uptake Time: 44 minutes * Radiopharmaceutical: [id number]-Aqqhtqvvbzzppvdjqt (FDG) COMPARISON: 05/20/2023 CORRELATION: Outside CT chest 10/29/2023. RESULT: REFERENCES: FDG uptake is used as a surrogate marker for glucose metabolism. All reported standardized uptake values represent maximum SUV (SUVmax) per body weight, unless otherwise specified. SUV reference values, as follows: * Blood Pool (Descending Aorta): SUVmax 2.8 previously 2.8 * Background Liver: SUVmax 4.0 previously 3.6; SUVmean 2.9 previously2.7 Localizer Images: No additional findings. HEAD AND NECK: Head: No radiotracer avid lesion or mass effect in the imaged intracranial compartment. Aerodigestive Tract: No radiotracer avid lesion. Lymph Nodes: No radiotracer avid lymphadenopathy. Neck Soft Tissues: No radiotracer avid thyroid nodule. CHEST: Lungs and Pleura: Left apical parenchymal irregular opacity without increased uptake grossly stable likely representing chronic atelectatic changes or scarring. No evidence of FDG avid lung lesions. Groundglass changes more prominent in the right upper lobe with no increased uptake likely representing infectious/inflammatory changes. Lymph Nodes: No radiotracer avid lymphadenopathy. Mediastinum: No radiotracer avid mass. Cardiovascular: Blood pool activity. No pericardial effusion. Normal heart size. Chest Wall: No radiotracer avid soft tissue lesion. ABDOMEN AND PELVIS: Hepatobiliary: No radiotracer avid lesion. No measurable mass. Spleen: No radiotracer avid lesion. No splenomegaly. Pancreas: No radiotracer avid lesion. Adrenals: No radiotracer avid nodule. Urinary Tract: Physiologic radiotracer excretion in the renal collecting systems and urinary bladder. No hydronephrosis. GI Tract: No radiotracer avid lesion. No bowel dilation. Peritoneum: No radiotracer avid lesion. No ascites. Lymph Nodes: No radiotracer avid lymphadenopathy. Vasculature: Blood pool activity. Pelvic Organs: No radiotracer avid lesion. MUSCULOSKELETAL: Bones: No radiotracer avid lesion. No lytic or sclerotic lesion. Mild degenerative changes. Soft Tissues: No radiotracer avid lesion. IMPRESSION: Since 05/20/2023, RAMAKRISHNA DISEASE: * No metabolically active lymphadenopathy. EXTRANODAL DISEASE: * No metabolically active extranodal disease. ADDITIONAL FINDINGS: * Grossly stable left apical parenchymal irregular opacity likely representing chronic atelectasis/scarring. * Groundglass changes more prominent in the right upper lobe with no increased uptake likely representing infectious/inflammatory changes. Deauville Score: 1 * Score 1: No uptake above the background * Score 2: Uptake equal to or below mediastinum * Score 3: Uptake above mediastinum but equal to or below liver * Score 4: Uptake slightly to moderately above liver * Score 5: Uptake markedly above liver or a new site of disease * Score X: New area(s) of uptake unlikely to be related to lymphoma Transcribe Date/Time: Dec 15 2023 7:21P Dictated by: PETER CHILDS MD This examination was interpreted and the report reviewed and electronically signed by: PETER CHILDS MD on Dec 15 2023 7:38PM EST Thank you for allowing us to participate in the care of your patient. Should there be any questions regarding this interpretation, please call [phone]. If you are unable to reach us at the number above, please feel free to contact [facility] at [phone]. [id number]^[email or web address]^ACN us Generic External Data Provider [facility] Final Result documented in this encounter Visit Diagnoses Not on filedocumented in this encounter Additional Health Concerns Assessment Noted Time PHQ-9 Depression Total Score: 5 11/28/19 24 8:00 AM EDT documented as of this encounter Care Teams Church Business Administrator Relationship Specialty Start Date End Date Bee Moya MD [address] [place] [address] PCP - General Internal Medicine 06/26/22 Bee Moya MD [address] [place] [address] PCP - [employer] 10/19/21 Dr. Ledezma Referring Physician Oncology 08/08/23 Dr. Elliott Referring Physician Cardiology 08/08/23 Dr. Clemons Referring Physician Rheumatology 08/08/23 Dr. Becerril Referring Physician Pulmonary Disease 08/08/23 Dr. Franco Referring Physician Otolaryngology 08/08/23 Emely Bonilla Referring Physician Palliative Medicine 08/08/23 documented as of this encounter
--- OUTSIDE RECORDS SUMMARY | 2024-08-12 15:09 | XMS_ITS | Clinical Summary ---
Author Organization [facility] Address [address] [place] [address] Phone Care Team Providers Care Account Information Clerk Name Role Phone Bee Moya MD Primary Care Provider [phone] Social History Tobacco Use Types Packs/Day Years Used Date Smoking Tobacco: Never Assessed Comments Unknown Sex and Gender Information Value Date Recorded Sex Assigned at Not on file Legal Sex Female 5:06 AM EST Gender Identity Not on file Sexual Orientation Not on file Last Filed Vital Signs Vital Sign Reading Time Taken Comments Blood Pressure - - Pulse - - Temperature - - Respiratory Rate - - Oxygen Saturation - - Inhaled Oxygen Concentration - - Weight 109 kg (240 lb) 08/25/2019 8:23 AM EDT Height 182.9 cm (6') 08/25/2019 8:23 AM EDT Body Mass Index 32.55 08/25/2019 8:23 AM EDT Plan of Treatment Health Maintenance Due Date Last Done Comments HIV Screening 1980 Lipid Panel 1980 MMR Vaccines (1 of 1 - Standard series) 07/12/1983 COVID-19 Vaccine (#1) 07/12/1987 Varicella Vaccines (1 of 2 - 13+ 2-dose series) 07/12/1995 Hepatitis C Screening 2000 Hepatitis B Vaccines (1 of 3 - 19+ 3-dose series) 2001 Pneumococcal Vaccine: Pediatrics and At-Risk Adult Patients (1 of 2 - PCV) 2001 Zoster Vaccines (1 of 2) 2001 HPV/Cotest 07/12/2003 DTaP/Tdap/Td Vaccines (1 - Tdap) 2004 Cervical Cancer Screening 10/14/2020 Pap Smear 10/14/2020 10/14/2017, 10/26/2016 Medicare Annual Wellness Visit (AWV) 05/31/2021 05/30/2020, 02/26/2019 Mammogram 2022 Influenza Vaccine (Season Ended) 2024 Welcome to Medicare Visit Discontinued 2020, 02/26/2019 HIB Vaccines Aged Out No longer eligi ble based on patient's age to complete this topic HPV Vaccines Aged Out No longer eligi ble based on patient's age to complete this topic Hepatitis A Vaccines Aged Out No long er eligible based on patient's age to complete this topic IPV Vaccines Aged Out No longer eligi ble based on patient's age to complete this topic Meningococcal Vaccine Aged Out No jeffrey wu eligible based on patient's age to complete this topic Rotavirus Vaccines Aged Out No longer eligible based on patient's age to complete this topic [facility] Care Teams Account Information Clerk Relationship Specialty Start Date End Date Bee Moya MD [address] [facility] [place] [address] PCP - General 08/24/19
[2024-08-14 16:09] LABS: Age Gdln ACOG Testing Note (.); HPV Aptima Negative (Negative); IGP, Aptima HPV, rfx 16/18,45 Note (.)
== END 2024-08-12 15:05 | disposition home or self-care (01) ==
LOC: LAB 15:04
PROVIDERS: PCP Internal Medicine; Visit Provider Nurse Practitioner Family
DX: Z01.419 Encounter for gynecological examination (general) (routine) without abnormal findings (principal)
CPT/HCPCS: 87624; 88175

== ENCOUNTER 2024-08-24 11:11 | Outpatient (OUT) | payer MEDICARE, MEDICAID, SELFPAY ==
[2024-08-24 13:08] LABS: Free T3 3.31 pg/mL (2.18-3.98); Glucose 100 mg/dL (74-106); Thyroid Stimulating Hormone 0.537 uIU/mL (0.358-3.740)
[2024-08-24 13:17] LABS: Ferritin 86.0 ng/mL (8.0-252.0)
[2024-08-25 04:08] LABS: Sex Horm Binding Glob, Serum 33.1 nmol/L (24.6-122.0)
== END 2024-08-24 11:12 | disposition home or self-care (01) ==
PROVIDERS: PCP Internal Medicine; Visit Provider Nurse Practitioner Family
DX: E34.9 Endocrine disorder, unspecified (principal)
CPT/HCPCS: 36415; 82530; 82627; 82652; 82670; 82679; 82728; 82947; 83525; 84144; 84260; 84270; 84402; 84403; 84432; 84436; 84439; 84443; 84481; 84482; 84681; 86376; 86800

== ENCOUNTER 2024-08-24 11:30 | Outpatient (OUT) | payer MEDICARE, MEDICAID, SELFPAY ==
--- OUTSIDE RECORDS SUMMARY | 2024-08-12 10:00 | XMS_ITS | Encounter Summary ---
Author Organization [facility] Address [address] [facility] [place] [address] Care Team Providers Care Steamfitter Name Role Phone Bee Moya MD Primary Care Provider [phone] Bee Moya MD Unavailable [phone] Reason for Visit * Reason Comments Well Women Visit Encounter Details Date Type Department Care Team ([facility] Contact Info) Description 08/12/2024 10:00 AM EDT Office Visit [facility] [address] [place] [address] Cristine Azul NP [address] [facility] [address] [place] [address] Symptomatic states associated with artificial menopause (Primary Dx); Well woman exam with routine gynecological exam; Breast cancer screening by mammogram; Hormone disorder; Folliculitis; Dyspareunia, female; Vaginal dryness, menopausal Social History Tobacco Use Types Packs/Day Years Used Date Smoking Tobacco: Former Cigarettes Smokeless Tobacco: Never Alcohol Use Standard Drinks/Week Comments Yes 0 (1 standard drink = 0.6 oz pur e alcohol) PHQ-2 Answer Date Recorded Patient Health Questionnaire-2 Score 2 06/08/2024 Comments Unknown Sex and Gender Information Value Date Recorded Sex Assigned at Not on file Legal Sex Female 8:26 PM EDT Gender Identity Not on file Sexual Orientation Not on file documented as of this encounter Progress Notes * Cristine Azul NP - 08/12/2024 10:00 AM EDT Reason for Appointment: Patient ID: Pat Weller is a 44 y.o. female who presents for Well Women Visit Patient presents today for Annual Exam. MEDICATIONS Current Outpatient Medications Medication Instructions aspirin 81 mg, Daily baclofen (LIORESAL) 5 mg, 3 times daily cephalexin (KEFLEX) 500 mg, Oral, 3 times daily clopidogrel (PLAVIX) 75 mg, Daily dexlansoprazole (DEXILANT) 30 mg, Oral, Daily, Do not crush or chew. DULoxetine (CYMBALTA) 30 mg, Oral, Daily, Do not crush or chew. fluocinonide (Lidex) 0.05 % cream APPLY TO AFFECTED AREA TOPICALLY IN THE MORNING AND AT BEDTIME gabapentin (NEURONTIN) 600 mg, Oral, 3 times daily ipratropium (Atrovent) 0.06 % nasal spray 2 sprays, Each Nostril, 3 times daily ipratropium-albuterol (Duo-Neb) 0.5-2.5 mg/3 mL nebulizer solution 3 mL, Nebulization, Every 6 hours RT Ivabradine HCl 5 mg, 2 times daily ketoconazole (NIZOral) 2 % cream 1 application , Every 24 hours levothyroxine (SYNTHROID, LEVOXYL) 75 mcg, Oral, Daily before breakfast lisinopril 5 mg, Daily LORazepam (ATIVAN) 0.5 mg, Oral, 4 times daily PRN metoprolol succinate XL (TOPROL-XL) 100 mg, Daily oxyCODONE (ROXICODONE) 10 mg, Every 4 hours PRN Probiotic Product (Probiotic Daily) capsule Every 24 hours prochlorperazine (COMPAZINE) 10 mg, Oral, Every 6 hours PRN rosuvastatin (CRESTOR) 20 mg, Daily spironolactone (ALDACTONE) 12.5 mg, Daily RT traZODone (DESYREL) 150 mg, Oral, Nightly PRN ALLERGIES Allergies Allergen Reactions Chlorhexidine Unknown and Itching Other Reaction(s): Unknown Severe skin irritation. Had used for central line care Other reaction(s): Unknown Other reaction(s): Unknown Severe skin irritation. Had used for central line care Sulfa Antibiotics Unknown and Rash Other reaction(s): Unknown PROBLEMS Active Ambulatory Problems Diagnosis Date Noted Asthma (HCC) 08/13/2022 Acquired hypothyroidism 08/23/2022 Anxiety 08/23/2022 Gastroesophageal reflux disease 08/23/2022 Hodgkin lymphoma (HCC) 08/23/2022 Insomnia 08/23/2022 Major depressive disorder, single episode, mild 08/23/2022 Mild intermittent asthma (HCC) 08/23/2022 Psoriasis 08/23/2022 Restrictive lung disease 08/23/2022 Tachycardia 08/23/2022 Vitamin D deficiency 08/23/2022 Voice hoarseness 08/23/2022 Neuropathy 06/03/2023 Chronic prescription benzodiazepine use 10/10/2023 Palliative care status 04/01/2024 Acute systolic heart failure (HCC) 07/21/2024 NSTEMI (non-ST elevated myocardial infarction) ([facility]) 07/21/2024 Hx of pulmonary embolus 07/21/2024 Inappropriate sinus tachycardia ([facility]) 07/21/2024 Mixed hyperlipidemia 07/21/2024 Resolved Ambulatory Problems Diagnosis Date Noted No Resolved Ambulatory Problems Past Medical History: Diagnosis Date Arthritis ASCUS with positive high risk HPV cervical Disease of thyroid gland JOAN (generalized anxiety disorder) GERD (gastroesophageal reflux disease) History of pulmonary embolism Menopause HISTORY PAST MEDICAL HISTORY SOCIAL HISTORY Past Medical History: Diagnosis Date Anxiety Arthritis ASCUS with positive high risk HPV cervical Asthma (HCC) Disease of thyroid gland JOAN (generalized anxiety disorder) GERD (gastroesophageal reflux disease) History of pulmonary embolism Hodgkin lymphoma (HCC) 08/23/2022 Menopause Neuropathy NSTEMI (non-ST elevated myocardial infarction) ([facility]) 07/21/2024 Social History Tobacco Use Smoking status: Former Types: Cigarettes Smokeless tobacco: Never Substance Use Topics Alcohol use: Yes Drug use: Never FAMILY HISTORY Family History Problem Relation Name Age of Onset Multiple sclerosis Mother Veronica Hypertension Mother Veronica SURGICAL HISTORY Past Surgical History: Procedure Laterality Date CORONARY ANGIOPLASTY WITH STENT PLACEMENT 2024 CT ANGIOGRAM HEART CORONARY 07/09/2024 CT ANGIOGRAM TAVR 07/09/2024 DILATION AND CURETTAGE OF UTERUS LYMPH NODE BIOPSY MR ANGIOGRAM HEAD WO IV CONTRAST 07/08/2024 MR ANGIOGRAM HEAD WO IV CONTRAST 07/08/2024 OTHER SURGICAL HISTORY RIGHT HEART CATHETERIZATION INCLUDING MEASUREMENT OF OXYGEN SATURATION AND CARDIAC OUTPUT Feb 2024 RECTAL SURGERY fissure repair TUNNELED VENOUS CATHETER PLACEMENT US GUIDED PERCUTANEOUS PLACEMENT 03/22/2017 US GUIDED PERCUTANEOUS PLACEMENT REVIEW OF SYSTEMS Review of Systems: Review of Systems Constitutional: Positive for fatigue, night sweats and hot flashes. Concern for menopausal symptoms HENT: Negative. Eyes: Negative. Respiratory: Negative. Cardiovascular: Negative. Gastrointestinal: Negative. Concern for hemorrhoid that occasionally bleeds. No rectal pain. Genitourinary: Positive for dyspareunia. Musculoskeletal: Negative. Skin: Positive for rash. Bump to pelvic area Neurological: Negative. All other systems reviewed and are negative. Hematological: Negative. Allergic/Immunologic: Negative. OBJECTIVE Objective: Physical Exam Constitutional: Appearance: Normal appearance. She is well-developed. Genitourinary: Vulva normal. Genitourinary Comments: Concern for rectal / polyp vs non thrombosed hemorrhoid. Will send referralfor general surgical consult and trial tucks pads. Breasts: Breasts are soft. Right: Normal. Left: Normal. Cardiovascular: Rate and Rhythm: Normal rate and regular rhythm. Pulmonary: Effort: Pulmonary effort is normal. Breath sounds: Normal breath sounds. Abdominal: General: Bowel sounds are normal. There is no distension. Palpations: Abdomen is soft. Tenderness: There is no abdominal tenderness. There is no guarding or rebound. Musculoskeletal: General: No swelling. Normal range of motion. Right lower leg: No edema. Left lower leg: No edema. Neurological: Mental Status: She is alert and oriented to person, place, and time. Skin: General: Skin is warm and dry. Comments: Noted folliculitis to mons pubis and labia majora. Will start on keflex Psychiatric: Mood and Affect: Mood normal. Behavior: Behavior normal. Vitals and nursing note reviewed. Exam conducted with a etl tester present. Vitals: Estimated body mass index is 30.79 kg/m?? as calculated from the following: Height as of 07/21/24: 6'. Weight as of 07/21/24: 227 lb. BP: No LMP recorded. ASSESSMENT & PLAN ICD-10-CM 1. Symptomatic states associated with artificial menopause E89.41 2. Well woman exam with routine gynecological exam Z01.419 THIN PREP TIS PAP AND HR HPV DNA 3. Breast cancer screening by mammogram Z12.31 Bilateral screening mammogram Bilateral screening mammogram 4. Hormone disorder E34.9 Estradiol Estrone Cortisol, free DHEA-sulfate Sex hormone binding globulin Insulin, total Serotonin serum TSH T4, free T3, reverse Progesterone Vitamin D 1,25 dihydroxy Ferritin T3, free Thyroglobulin Thyroglobulin Antibody Thyroid peroxidase antibody T4 TESTOSTERONE, FREE Testosterone, free, total Glucose, random C-peptide Cortisol, free Insulin, total Serotonin serum Thyroglobulin Thyroglobulin Antibody T4 Glucose, random C-peptide 5. Folliculitis L73.9 cephalexin (Keflex) 500 MG capsule Annual Exam: Patient presents today for an annual exam. Patient states she is doing well and has no complaints. Pap was obtained without difficulty. Orders Placed This Encounter Procedures Bilateral screening mammogram Estradiol Estrone Cortisol, free DHEA-sulfate Sex hormone binding globulin Insulin, total Serotonin serum TSH T4, free T3, reverse Progesterone Vitamin D 1,25 dihydroxy Ferritin T3, free Thyroglobulin Thyroglobulin Antibody Thyroid peroxidase antibody T4 TESTOSTERONE, FREE Testosterone, free, total Glucose, random C-peptide Follow Up: Patient with noted folliculitis and will send in Keflex. Patient with complaints of possible hemorrhoid that she reports sometimes bleeds . She does report that at times this is painful. There is no noted thrombosed hemorrhoid on examination today. Will trial Tucks pads and recommend general surgery consultation. With patients history of Hodgkin's lymphoma and multiple rounds of Chemotherapy and Radiation patient is experence menopausal symptoms. Will obtain hormone panel and likely [facility] to consult patient on treatment based on lab results. Discussed with patient difficulty in insertion with speculum today. She does report dyspareunia and vaginal dryness. Will start patient on vaginal estrace cream and we discussed that this estrogen does not have systemic absorption. Patient is to schedule a telehealth visit in 4 weeks to review labs and current treatment and return in one year for annual unless needed otherwise. Documented by Cristine Azul NP on behalf of: Cristine Azul NP documented in this encounter Plan of Treatment Upcoming Encounters Date Type Department Care Team (Late st Contact Info) Description 09/09/2024 10:20 AM EDT [facility] Visit [facility] [address] [facility] [address] Cristine Azul NP [address] [facility] [address] [place] [address] 09/10/2024 9:30 AM EDT Office Visit [facility] IM [address] [place] [address] Lina Charles, MARINE RIGGER [address] [facility] [place] [address] 08/19/2025 11:00 AM EDT Office Visit [facility] [address] [place] [address] Sebastian Montiel, DO [address] [facility] [place] [address] Scheduled Orders Name Type Priority Associated Diagnoses Orde r Schedule Bilateral screening mammogram Imaging Routine Breast cancer screening by mammogram Expected: 08/12/2024 (Approximate), Expires: 10/12/2025 THIN PREP TIS PAP AND HR HPV DNA Pathology and Cytology Routine Well woman exam with routine gynecological exam Ordered: 08/12/2024 Estradiol Lab Routine Hormone disorder Ordered: 08/12/2024 Estrone Lab Routine Hormone disorder Ordered: 08/12/2024 Cortisol, free Lab Routine Hormone disorder Expected: 08/12/2024 (Approximate), Expires: 08/12/2025 DHEA-sulfate Lab Routine Hormone disorder Ordered: 08/12/2024 Sex hormone binding globulin Lab Routine Hormone disorder Ordered: 08/12/2024 Insulin, total Lab Routine Hormone disorder Expected: 08/12/2024 (Approximate), Expires: 08/12/2025 Serotonin serum Lab Routine Hormone disorder Expected: 08/12/2024 (Approximate), Expires: 08/12/2025 TSH Lab Routine Hormone disorder Ordered: 08/12/2024 T4, free Lab Routine Hormone disorder Ordered: 08/12/2024 T3, reverse Lab Routine Hormone disorder Ordered: 08/12/2024 Progesterone Lab Routine Hormone disorder Ordered: 08/12/2024 Vitamin D 1,25 dihydroxy Lab Routine Hormone disorder Ordered: 08/12/2024 Ferritin Lab Routine Hormone disorder Ordered: 08/12/2024 T3, free Lab Routine Hormone disorder Ordered: 08/12/2024 Thyroglobulin Lab Routine Hormone disorder Expected: 08/12/2024 (Approximate), Expires: 08/12/2025 Thyroglobulin Antibody Lab Routine Hormone disorder Expected: 08/12/2024 (Approximate), Expires: 08/12/2025 Thyroid peroxidase antibody Lab Routine Hormone disorder Ordered: 08/12/2024 T4 Lab Routine Hormone disorder Expected: 08/12/2024 (Approximate), Expires: 08/12/2025 TESTOSTERONE, FREE Lab Routine Hormone disorder Ordered: 08/12/2024 Testosterone, free, total Lab Routine Hormone disorder Ordered: 08/12/2024 Glucose, random Lab Routine Hormone disorder Expected: 08/12/2024 (Approximate), Expires: 08/12/2025 C-peptide Lab Routine Hormone disorder Expected: 08/12/2024 (Approximate), Expires: 08/12/2025 documented as of this encounter Visit Diagnoses Diagnosis Symptomatic states associated with artificial menopause- Primary Well woman exam with routine gynecological exam Routine gynecological examination Breast cancer screening by mammogram Hormone disorder Unspecified endocrine disorder Folliculitis Other specified disease of hair and hair follicles Dyspareunia, female Vaginal dryness, menopausal documented in this encounter Additional Health Concerns Assessment Noted Time PHQ-9 Depression Total Score: 5 06/09/19 25 8:00 AM EDT documented as of this encounter Care Teams Steamfitter Relationship Specialty Start Date End Date Bee Moya MD [address] [place] [address] PCP - General Internal Medicine 06/26/22 Bee Moya MD [address] [place] [address] PCP - [employer] 10/19/21 Dr. Ledezma Referring Physician Oncology 08/08/23 Dr. Elliott Referring Physician Cardiology 08/08/23 Dr. Clemons Referring Physician Rheumatology 08/08/23 Dr. Becerril Referring Physician Pulmonary Disease 08/08/23 Dr. Franco Referring Physician Otolaryngology 08/08/23 Emely Bonilla Referring Physician Palliative Medicine 08/08/23 documented as of this encounter
--- OUTSIDE RECORDS SUMMARY | 2024-08-24 11:34 | XMS_ITS | Encounter Summary ---
Author Organization [facility] Address [address] [place] [address] Care Team Providers Care Electrical Systems Engineer Name Role Phone Bee Moya MD Primary Care Provider [phone] Bee Moya MD Unavailable [phone] Encounter Details Date Type Department Care Team (Late Contact Info) Description 08/12/2024 Bamboo flowsheet [facility] OB [address] [facility] [place] [address] Cristine Azul, RESAW OPERATOR [address] [place] [address] [place] [address] Social History Tobacco Use Types Packs/Day [...] 09/09/2024 10:20 AM EDT Office Visit [facility] OB [address] [place], [place] [address] [address] Cristine Azul, RESAW OPERATOR [address] [place] [address] 09/10/2024 9:30 AM EDT Office Visit [facility] [address] [place] [address] Lina Charles, RESAW OPERATOR [address] [place] [address] 08/19/2025 11:00 AM EDT Office Visit [facility] OB [address] [facility] [place] [id number] Sebastian Montiel, DO [address] [facility] [place] [address] documented as of this encounter Visit Diagnoses Not on filedocumented in this encounter Additional Health Concerns Assessment Noted Time PHQ-9 Depression Total Score: 5 06/09/19 25 8:00 AM EDT documented as of this encounter Care Teams Electrical Systems Engineer Relationship Specialty Start Date End Date Bee Moya MD [address] [place] [address] PCP - General Internal Medicine 06/26/22 Bee Moya MD [address] [place] [address] PCP - [employer] 10/19/21 Dr. Ledezma Referring Physician Oncology 08/08/23 Dr. Elliott Referring Physician Cardiology 08/08/23 Dr. Clemons Referring Physician Rheumatology 08/08/23 Dr. Becerril Referring Physician Pulmonary Disease 08/08/23 Dr. Franco Referring Physician Otolaryngology 08/08/23 Emely Bonilla Referring Physician Palliative Medicine 08/08/23 documented as of this encounter
--- OUTSIDE RECORDS SUMMARY | 2024-08-24 11:34 | XMS_ITS | Clinical Summary ---
Author Organization [facility] Address [address] [place] [address] Care Team Providers Care Managed Care Director Name Role Phone Bee Moya MD Primary Care Provider Bee Moya MD Unavailable [phone] Allergies Active Allergy Reactions Criticality Noted Date Comments Chlorhexidine Unknown,Itching 03/11/2013 Other Reaction(s): Unknown Severe skin irritation. Had used for central line care Other reaction(s): Unknown Other reaction(s): Unknown Severe skin irritation. Had used for central line care Sulfa Antibiotics Unknown,Rash Low 10/18/2010 Other reaction(s): Unknown Medications baclofen (Lioresal) 5 MG tablet Take 5 mg by mouth in the morning and 5 mg in the evening and 5 mg before bedtime. 023 Active ketoconazole (NIZOral) 2 % cream Apply 1 application topically 1 (one) time each day at the same time 022 Active oxyCODONE (Roxicodone) 10 MG immediate release tablet Take 10 mg by mouth every 4 (four) hours if needed Active Probiotic Product (Probiotic Daily) capsule 1 (one) time each day at the same time 022 Active prochlorperazine (Compazine) 10 MG tabletIndications :Nausea Take 1 tablet (10 mg) by mouth every 6 (six) hours if needed for nausea 30 tablet 11 024 Active dexlansoprazole (Dexilant) [address] capsuleIndication s:Gastroesophagea l reflux disease, unspecified whether esophagitis present Take 1 capsule (30 mg) by mouth Daily Do not crush or chew. 90 capsule 2 024 Active gabapentin (Neurontin) 300 MG capsuleIndication s:Nerve pain Take 2 capsules (600 mg) by mouth in the morning and 2 capsules (600 mg) in the evening and 2 capsules (600 mg) before bedtime. 270 capsule 3 025 Active ipratropium (Atrovent) 0.06 % nasal sprayIndications: Chronic rhinitis Administer 2 sprays into each nostril in the morning and 2 sprays in the evening and 2 sprays before bedtime. 15 mL 11 025 Active levothyroxine (Synthroid, Levoxyl) 75 MCG tabletIndications :Acquired hypothyroidism Take 1 tablet (75 mcg) by mouth in the morning. Take before meals. 90 tablet 3 025 Active ipratropium-albut yovani (Duo-Neb) 0.5-2.5 mg/3 mL nebulizer solutionIndicatio ns:Asthma, unspecified asthma severity, unspecified whether complicated, unspecified whether persistent (HCC) Take 3 mL by nebulization every 6 (six) hours 180 mL 3 025 Active traZODone (Desyrel) 150 MG tabletIndications :Primary insomnia Take 1 tablet (150 mg) by mouth as needed at bedtime for sleep 90 tablet 3 025 Active DULoxetine (Cymbalta) [address] capsuleIndication s:Anxiety,Major depressive disorder, single episode, mild,Neuropathy TAKE 1 CAPSULE (30 MG) BY MOUTH DAILY DO NOT CRUSH OR CHEW. 90 capsule 3 025 Active aspirin 81 MG EC tablet Take 81 mg by mouth Daily Active clopidogrel (Plavix) 75 MG tablet Take 75 mg by mouth Daily Active lisinopril 5 MG tablet Take 5 mg by mouth Daily Active metoprolol succinate XL (Toprol-XL) 100 MG 24 hr tablet Take 100 mg by mouth Daily Do not crush or chew. Active rosuvastatin (Crestor) 20 MG tablet Take 20 mg by mouth Daily Active spironolactone (Aldactone) 25 MG tablet Take 12.5 mg by mouth in the morning. 025 2025 Active Ivabradine HCl 5 MG tablet Take 5 mg by mouth in the morning and 5 mg in the evening. 025 2025 Active fluocinonide (Lidex) 0.05 % creamIndications: Dermatitis APPLY TO AFFECTED AREA TOPICALLY IN THE MORNING AND AT BEDTIME 60 g 025 Active estradiol (Estrace) 0.1 MG/GM vaginal creamIndications: Hormone disorder,Dyspareu jolly, female,Vaginal dryness, menopausal 2g vaginal daily for 2 weeks, then 2 times weekly following initial 2 weeks 42.5 g 025 Active LORazepam (Ativan) 0.5 MG tabletIndications :Anxiety Take 1 tablet (0.5 mg) by mouth 4 (four) times a day as needed for anxiety 120 tablet 2 Active fluocinonide (Lidex) 0.05 % creamIndications: Dermatitis Apply 1 application topically in the morning and 1 application before bedtime. 60 g 025 2024 Discontinued LORazepam (Ativan) 0.5 MG tabletIndications :Anxiety Take 1 tablet (0.5 mg) by mouth 4 (four) times a day as needed for anxiety 120 tablet 2 025 2024 Discontinued(R eorder) cephalexin (Keflex) 500 MG capsuleIndication s:Folliculitis Take 1 capsule (500 mg) by mouth in the morning and 1 capsule (500 mg) in the evening and 1 capsule (500 mg) before bedtime. Do all this for 7 days. 21 capsule 025 2024 Active Problems Problem Noted Date Diagnosed Date Acute systolic heart failure 07/21/2024 NSTEMI (non-ST elevated myocardial infarction) 0 07/21/2024 Hx of pulmonary embolus 07/21/2024 Inappropriate sinus tachycardia 07/21/2024 Mixed hyperlipidemia 07/21/2024 Palliative care status 04/01/2024 Chronic prescription benzodiazepine use 10/10/19 24 Overview (10/10/2023): Need contract Neuropathy 06/03/2023 Acquired hypothyroidism 08/23/2022 Anxiety 08/23/2022 Gastroesophageal reflux disease 08/23/2022 Hodgkin lymphoma 08/23/2022 Insomnia 08/23/2022 Major depressive disorder, single episode, mild 08/23/2022 Mild intermittent asthma 08/23/2022 Psoriasis 08/23/2022 Restrictive lung disease 08/23/2022 Tachycardia 08/23/2022 Vitamin D deficiency 08/23/2022 Voice hoarseness 08/23/2022 Asthma 08/13/2022 Encounters Date Type Department Care Team Description 08/20/2024 Orders Only [facility] [address] [place] [address] Julieth Couch MA 08/12/2024 10:00 AM EDT Office Visit [facility] [address] [place] [address] Cristine Azul NP Symptomatic states associated with artificial menopause (Primary Dx); Well woman exam with routine gynecological exam; Breast cancer screening by mammogram; Hormone disorder; Folliculitis; Dyspareunia, female; Vaginal dryness, menopausal 08/12/2024 Clinisync Result Encounter [facility] External Department Unsolicited Cristine Azul NP 08/12/2024 Refill [facility] [address] [place] [address] Bee Moya MD Anxiety 08/12/2024 Bamboo flowsheet [facility] [address] [place] [address] Cristine Azul NP 08/10/2024 Refill [facility] [address] [place] [id number] Bee Moya MD Dermatitis 08/03/2024 Clinisync Result Encounter [facility] External Department Unsolicited Provider, Generic External Data 07/30/2024 Clinisync Result Encounter [facility] External Department Unsolicited Provider, Generic External Data 07/21/2024 1:40 PM EDT Office Visit [facility] [address] [place] [address] Bee Moya MD NSTEMI (non-ST elevated myocardial infarction) (HCC) (Primary Dx); Acute systolic heart failure (HCC); Mixed hyperlipidemia ; Inappropriate sinus tachycardia (HCC); Hx of pulmonary embolus 07/21/2024 Bamboo flowsheet [facility] [address] [place] [address] Bee Moya MD 07/21/2024 Travel 07/04/2024 Refill [facility] [address] [place] [address] Lina Charles NP Anxiety; Major depressive disorder, single episode, mild ; Neuropathy 06/18/2024 Orders Only [facility] [address] [place] [address] Bee Moya MD Primary insomnia 06/08/2024 8:00 AM EDT Office Visit [facility] [address] [place] [address] Lina Charles NP Asthma, unspecified asthma severity, unspecified whether complicated, unspecified whether persistent (HCC) (Primary Dx); Restrictive lung disease; Anxiety; Major depressive disorder, single episode, mild ; Primary insomnia; Nodular sclerosing Hodgkin's lymphoma, unspecified body region (HCC); Screening mammogram for breast cancer; Neuropathy; Left leg pain 06/08/2024 Bamboo flowsheet [facility] [address] [place] [address] Lina Charles NP 06/08/2024 Travel 05/29/2024 Clinisync Result Encounter [facility] External Department Unsolicited Provider, Generic External Data 05/27/2024 Refill [facility] [address] [place] [address] Bee Moya MD Asthma, unspecified asthma severity, unspecified whether complicated, unspecified whether persistent (HCC) (Primary Dx) from Last 3 Months Immunizations Immunization Administration Dates Next Due Pneumococcal Conjugate PCV 13 06/16/2014 Pneumococcal Polysaccharide PPSV23 12/04/2023 TD (adult), 2 Lf tetanus tox oid, preservative free, adsorbed 12/04/2023 Tdap 03/11/2014 Family History Medical History Relation Name Comments Hypertension Mother Veronica Multiple sclerosis Mother Veronica Relation Name Status Comments Mother Veronica Social History Tobacco Use Types Packs/Day Years [...] Sign Reading Time Taken Comments Blood Pressure 90/70 07/21/2024 1:42 PM EDT Pulse 98 07/21/2024 1:42 PM EDT Temperature - - Respiratory Rate - - Oxygen Saturation 97% 07/21/2024 1:42 PM EDT Inhaled Oxygen Concentration - - Weight 103 kg (227 lb) 07/21/2024 1:42 PM EDT Height 182.9 cm (6') 07/21/2024 1:42 PM EDT Body Mass Index 30.79 07/21/2024 1:42 PM EDT Plan of Treatment Upcoming Encounters Date Type Department Care Team (Late st Contact Info) Description 09/09/2024 10:20 AM EDT Office Visit [facility] [address] [place] [address] Cristine Azul, SAMANTHA [address] [place] [address] 09/10/2024 9:30 AM EDT Office Visit [facility] [address] [place] [address] Lina Charles NP [address] [place] [address] 08/19/2025 11:00 AM EDT Office Visit [facility] [address] [place] [address] Sebastian Montiel DO [address] [place] [address] Health Maintenance Due Date Last Done Comments Mammogram 2022 10/17/2018 HPV/Cotest 10/21/2022 10/21/2017 Influenza Vaccine (#1) 2024 12/20/2023, 2014, 12/21/2013 Medicare Annual Wellness (AWV) 08/12/2025 0 08/12/2024, 08/26/2023, 07/03/2022, Additional history exists Cervical Cancer Screening 08/13/2027 Pap Smear 08/13/2027 08/12/2024, 10/21/2017 Procedures Procedure Name Priority Date/Time Associated Diagnosis Comments IGP,APTIMA HPV,AGE GDLN Routine 08/12/2024 10:02 AM EDT PAP SMEAR Routine 08/12/2024 12:00 AM EDT [facility] ESR BLD QN WESTRGRN Routine 08/03/2024 9:48 AM EDT [facility] COMP METAB 2000 PNL SERPL Routine 08/03/2024 9:48 AM EDT [facility] CBC W AUTO DIFF BLD Routine 08/03/2024 9:48 AM EDT QUANT TOX PANEL Routine 07/30/2024 10:26 AM EDT [facility] SPECIMEN VALIDITY, URINE Routine 07/30/2024 10:26 AM EDT XR CHEST 2V FRONTAL/LAT 05/29/2024 8:53 AM EDT BI MAMMOGRAM DIAGNOSTIC BILATERAL Routine 10/17/2018 12:00 PM EDT Mastodynia Pain in left upper arm from Last 3 Months or Most Recently Relevant to Health Maintenance Results * IGP,APTIMA HPV,AGE GDLN (08/12/2024 10:02 AM EDT) AGE GDLN ACOG TESTING Note . TB Comment: TESTS RESULT FLAG UNITS REF RANGE LAB Clinician Provided Cytology Information Source.............Cervix;Endocervix No. of containers..01 ThinPrep Vial Age Armond BASILIO Jackie... 3065 01 FLAG LEGEND: L-Low Normal,H-High Normal,LL-Alert Low,HH-Alert High <-Panic Low,>-Panic High,A-Abnormal,AA-Critical Abnormal Performed at: 01 =[facility] [address] [place] [address] Tahmina Vinson MD, IGP, APTIMA HPV, RFX 16/18,45 Note . [facility] Comment: TESTS RESULT FLAG UNITS REF RANGE LAB DIAGNOSIS: 02 NEGATIVE FOR INTRAEPITHELIAL LESION OR MALIGNANCY. Specimen adequacy: 02 Satisfactory for evaluation. Endocervical and/or squamous metaplastic cells (endocervical component) are present. Performed by: 02 Keven Chamorro, Supervising Airplane Pilot ([facility]) . 02 Note: Note 02 The Pap smear is a screening test designed to aid in the detection of premalignant and malignant conditions of the uterine cervix. It is not a diagnostic procedure and should not be used as the sole means of detecting cervical cancer. Both false-positive and false-negative reports do occur. Test Methodology: Note 02 This liquid based ThinPrep(R) pap test was screened with the use of an image guided system. HPV Genotype Reflex Note 02 Criteria not met, HPV Genotype not performed. FLAG LEGEND: L-Low Normal,H-High Normal,LL-Alert Low,HH-Alert High <-Panic Low,>-Panic High,A-Abnormal,AA-Critical Abnormal Performed at: [address] [address] Tahmina Vinson MD, HPV APTIMA Negative Negative [facility] Comment: This nucleic acid amplification test detects fourteen high- risk HPV types (16,18,31,33,35,39,45,51,52,56,58,59,66,68) without differentiation. Performed at: =[address] [id number] Sports Physician: Tahmina Vinson MD, Phone: [phone] Performed at: [address] [id number] Sports Physician: Tahmina iVnson MD, Phone: [phone] 08/12/2024 10:0 2 AM EDT 08/12/2024 3:06 PM EDT Narrative MEAGANNC - 08/14/2024 4:09 PM EDT BRUSH-SPATULA CERVIX ENDOCERVIX us Cristine Azul NP LAB BLOOD ORDERABLES Final Re sult [facility] * Pap Smear (08/12/2024 12:00 AM EDT) Swab Cervical swab / Unknown us Cristine Azul DUSTING AND BRUSHING MACHINE OPERATOR LAB CYTOLOGY ORDERABLES Final Result EXTERNAL LAB * [facility] ESR BLD QN ROMERGRN (08/03/2024 9:48 AM EDT) [facility] ESR BLD QN CANAJOHARIERGRN 2 0 - 20 mm/hr [facility] 08/03/2024 9:48 AM EDT 08/03/2024 2:24 PM EDT Narrative CLINISYNC - 08/03/2024 3:31 PM EDT Specimen Type: BLOOD SPECIMEN Ordering Facility: [facility] Address: [address] [place] [address] Original Ordering Provider: RUPERTO LEDEZMA us Generic External Data Provider MELVIN bradford Result Performing Organization Address City/[facility]/ZIP Co de Phone Number [facility] [address] [place] [address] * (ABNORMAL) [facility] CBC W AUTO DIFF BLD (08/03/2024 9:48 AM EDT) Pathologist [facility] WBC # BLD AUTO 7.35 3.70 [...] AM EDT 08/03/2024 9:48 AM EDT Narrative CLINISYNC - 08/03/2024 9:51 AM EDT Specimen Type: BLOOD SPECIMEN Ordering Facility: [facility] Address: [address] [place] [address] Original Ordering Provider: RUPERTO LEDEZMA us Generic External Data Provider CLINIS[facility]NC F inal Result [facility] [address] [place] [address] * (ABNORMAL) [facility] COMP METAB 2000 PNL [...] 74 - 99 mg/dL [facility] Comment: The [place] Diabetes Association (ADA) provides guidance for cutoff [...] Standards of Medical Care in Diabetes 2016, [place] Diabetes Association. Diabetes Care. 2016.39(Suppl 1). [facility] [...] 9:48 AM EDT Narrative MELVIN - 08/03/2024 11:16 AM EDT Specimen Type: BLOOD SPECIMEN Ordering Facility: [facility] Address: [address] [place], [place] [id number] Original Ordering Provider: RUPERTO LEDEZMA us Generic External Data Provider CLINISYAMARILIS Rickey inal Result [facility] [address] [place] [address] * (ABNORMAL) QUANT TOX PANEL (07/30/2024 10:26 [...] EDDP UR CFM-MCNC <25 <25 ng/mL [facility] Comment:1-Oevssdyftl-8,5-dim ethyl-3,3-diphenylpyrrolidine (EDDP) is a metabolite of methadone. [...] [facility] CARBOXYTHC UR-MCNC <10 <10 ng/mL [facility] Comment:88-Sqf-5-carboxy-tet rahydrocannabinol (nyozo-6-uergobh-THC) is a metabolite of igznj-9-owdshqemyosaetqdrrhj (THC). This test does not differentiate between delta-8 or delta-9 carboxy-THC. [facility] TRAMADOL UR CFM-MCNC <25 <25 ng/mL [facility] NOTE, UR TOXICOLOGY PANEL [facility] Comment: For medical purposes only. Not valid for legal or forensic purposes. This test was developed, and its performance characteristics determined by the [facility] Department of Pathology and Laboratory Medicine. It has not been cleared or approved by the FDA. The [facility] Department of Pathology and Laboratory Medicine is regulated under CLIA as qualified to perform high- complexity testing. This test is used for clinical purposes. It should not be regarded as investigational or for research. 07/30/2024 10:2 6 AM EDT 07/30/2024 3:56 PM EDT Narrative MELVIN - 08/03/2024 1:51 PM EDT Specimen Type: URINE SPECIMEN Ordering Facility: [facility] Address: [address] [place], [place] [id number] Original Ordering Provider: JUAN FRANCISCO HUTCHINSON us Generic External Data Provider LAB BLOOD ORDERAB LES Final Result MELVIN [address] [place], [place] [id number] * [facility] SPECIMEN VALIDITY, URINE (07/30/2024 10:26 AM EDT) [...] EDT Specimen Type: URINE SPECIMEN Ordering Facility: [facility] Address: [address] [place] [address] Original Ordering Provider: JUAN FRANCISCO HUTCHINSON us Generic External Data Provider CLINISYNC F inal Result Performing Organization Address City/State/[facility] Co de Phone Number [facility] [address] [place] [address] * XR CHEST 2V FRONTAL/LAT (05/29/2024 8:53 AM EDT) Anatomical Region Laterality Modality Other 05/29/2024 8:53 AM EDT Narrative 05/29/2024 2:18 PM EDT * * *Final Report* * [...] any questions regarding this interpretation, please call [phone]. If you are unable to reach us at the number above, please feel free to contact [facility] at [phone]. [id number]^[email or web address]^SI^ACN Procedure Note Radiology, Radiologist, - 05/29/2024 * * *Final [...] any questions regarding this interpretation, please call [phone]. If you are unable to reach us at the number above, please feel free to contact [facility] eRadiology at [phone]. [id number]^[email or web address]^SI^ACN us Generic External Data Provider [facility] IMAGING Final Result * Bilateral diagnostic mammogram (10/17/2018 12:00 PM EDT) Anatomical Region Laterality Modality Breast Bilateral Mammography Narrative 10/17/2018 12:00 AM EDT PERFORMED AT [facility] LOCATION:[id number] negative Procedure Note CONVERSION, GENERIC / Daisy Perez NP - 08/24/2022 PERFORMED AT [facility] LOCATION:[id number] negative Daisy Perez NP IMG BI PROCEDURES Final Resul t from Last 3 Months or Most Recently Relevant to Health Maintenance Insurance [employer] MEDICARE ADVANTAGE MEDICAID [place] Care Teams Managed Care Director Relationship Specialty Start Date End Date Bee Moya MD [address] [facility] [place] [address] PCP - General Internal Medicine 06/26/22 Bee Moya MD [address] [place], [place] [address] PCP - [employer] 10/19/21 Dr. Ledezma Referring Physician Oncology 08/08/23 Dr. Elliott Referring Physician Cardiology 08/08/23 Dr. Clemons Referring Physician Rheumatology 08/08/23 Dr. Becerril Referring Physician Pulmonary Disease 08/08/23 Dr. Franco Referring Physician Otolaryngology 08/08/23 Emely Bonilla Referring Physician Palliative Medicine 08/08/23
--- OUTSIDE RECORDS SUMMARY | 2024-08-24 11:35 | XMS_ITS | Encounter Summary ---
Author Organization [facility] Address [address] [facility] [place] [address] Care Team Providers Care Wick Tender Name Role Phone Bee Moya MD Primary Care Provider [phone] Bee Moya MD Unavailable [phone] Encounter Details Date Type Department Care Team [...] [facility] [address] [facility] [place] [address] Cristine Azul NP [address] [place] [address] 09/10/2024 9:30 AM EDT Office Visit [facility] [address] [place] [address] Lina Chrales, BANQUET SUPERVISOR [address] [place] [address] 08/19/2025 11:00 AM EDT Office Visit [facility] [address] [facility] [place] [address] Sebastian Montiel, DO [address] [facility] [place] [address] documented as of this encounter Procedures Procedure [...] joint effusions. IMPRESSION: 1. Mild patellofemoral osteoarthritis Hot Die Press Operator: PSCB Transcribe Date/Time: Oct 09 2023 2:42P Dictated by : SHANNEN HILLIARD MD This examination was interpreted and the report reviewed and electronically signed by: SHANNEN HILLIARD MD on Oct 09 2023 2:43PM EST [id number]^[email or web address]^SI^ACN Procedure Note Radiology, Radiologist, - 10/09/2023 * [...] joint effusions. IMPRESSION: 1. Mild patellofemoral osteoarthritis Hot Die Press Operator: PSCB Transcribe Date/Time: Oct 09 2023 2:42P Dictated by : SHANNEN HILLIARD MD This examination was interpreted and the report reviewed and electronically signed by: SHANNEN HILLIARD MD on Oct 09 2023 2:43PM EST [id number]^[email or web address]^SI^ACN us Generic External Data Provider [facility] IMAG[facility] Final Result documented in this encounter Visit Diagnoses Not on filedocumented in this encounter Additional Health Concerns Assessment Noted Time PHQ-9 Depression Total Score: 2 08/26/19 24 9:00 AM EDT documented as of this encounter Care Teams Wick Tender Relationship Specialty Start Date End Date Bee Moya MD [address] [facility] [place] [address] PCP - General Internal Medicine 06/26/22 Bee Moya MD [address] [facility] [address] [place] [address] PCP - [employer] 10/19/21 Dr. Ledezma Referring Physician Oncology 08/08/23 Dr. Elliott Referring Physician Cardiology 08/08/23 Dr. Clemons Referring Physician Rheumatology 08/08/23 Dr. Becerril Referring Physician Pulmonary Disease 08/08/23 Dr. Franco Referring Physician Otolaryngology 08/08/23 Emely Bonilla Referring Physician Palliative Medicine 08/08/23 documented as of this encounter
--- OUTSIDE RECORDS SUMMARY | 2024-08-24 11:35 | XMS_ITS | Encounter Summary ---
Author Organization [facility] Address [address] [facility] [place] [address] Care Team Providers Care Milling Machine Operator Name Role Phone Bee Moya MD Primary Care Provider [phone] Bee Moya MD Unavailable [phone] Encounter Details Date Type Department Care Team [...] [facility] [address] [place] [address] Cristine Azul NP [address] [place] [address] 09/10/2024 9:30 AM EDT Office Visit [facility] [address] [place] [address] Lina Charles, ADVERTISEMENT COMPOSITOR [address] [place] [address] 08/19/2025 11:00 AM EDT Office Visit [facility] OB [address] [place] [address] Sebastian Montiel, DO [address] [facility] [place] [address] documented as of this encounter Procedures Procedure [...] Postradiation changes in the left lung, stable. Lifter: DEDE Transcribe Date/Time: May 31 2023 3:49P Dictated by : YOGESH DAVIS MD This examination was interpreted and the report reviewed and electronically signed by: YOGESH DAVIS MD on May 31 2023 3:53PM EST [id number]^[email or web address]^SI^ACN Procedure Note Radiology, Radiologist, - 05/31/2023 * [...] Postradiation changes in the left lung, stable. Lifter: DEDE Transcribe Date/Time: May 31 2023 3:49P Dictated by : YOGESH DAVIS MD This examination was interpreted and the report reviewed and electronically signed by: YOGESH DAVIS MD on May 31 2023 3:53PM EST [id number]^[email or web address]^SI^ACN Generic External Data Provider [facility] IMAGING Final [...] CLINISYNC F inal Result Performing Organization Address City/State/[facility] Co de Phone Number CL[facility] [address] [address] CCF documented in this encounter Visit Diagnoses Not on filedocumented in this encounter Care Teams Milling Machine Operator Relationship Specialty Start Date End Date Bee Moya MD [address] [facility] [place] [address] PCP - General Internal Medicine 06/26/22 Bee Moya MD [address] [facility] [place] [address] PCP - [employer] 10/19/21 Dr. Ledezma Referring Physician Oncology 08/08/23 Dr. Elliott Referring Physician Cardiology 08/08/23 Dr. Clemons Referring Physician Rheumatology 08/08/23 Dr. Becerril Referring Physician Pulmonary Disease 08/08/23 Dr. Franco Referring Physician Otolaryngology 08/08/23 Emely Bonilla Referring Physician Palliative Medicine 08/08/23 documented as of this encounter
--- OUTSIDE RECORDS SUMMARY | 2024-08-24 11:35 | XMS_ITS | Encounter Summary ---
Author Organization [facility] Address [address] [facility] [place] [address] Care Team Providers Care Metal Smelter Name Role Phone Bee Moya MD Primary Care Provider Bee Moya MD Unavailable [phone] Encounter Details Date Type Department Care [...] Upcoming Encounters Date Type Department Care Team ([facility] Contact Info) Description 09/09/2024 10:20 AM EDT Office Visit [facility] [address] [facility] [place] [address] Cristine Azul NP [address] [place] [address] 09/10/2024 9:30 AM EDT Office Visit [facility] LPS IM [address] [place] [address] Lina Charles, WELDER PRODUCTION LINE COMBINATION [address] [place] [address] 08/19/2025 11:00 AM EDT Office Visit [facility] OB [address] [facility] [place] [address] Sebastian Montiel, DO [address] [facility] [place] [address] documented as of this encounter Procedures Procedure [...] PRESENT IN THE NOTES COMPONENT OF EPIC Electrifier Operator: PSCB Transcribe Date/Time: Jul 10 2023 3:06P Dictated by : ERIC GREENFIELD MD This examination was interpreted and the report reviewed and electronically signed by: ERIC GREENFIELD MD on Jul 10 2023 3:06PM EST [id number]^AGFA_IDC^SI^ACN Procedure Note Radiology, Radiologist, - 07/10/2023 * [...] PRESENT IN THE NOTES COMPONENT OF EPIC Electrifier Operator: PSCB Transcribe Date/Time: Jul 10 2023 3:06P Dictated by : ERIC GREENFIELD MD This examination was interpreted and the report reviewed and electronically signed by: ERIC GREENFIELD MD on Jul 10 2023 3:06PM EST [id number]^AGFA_IDC^SI^ACN Generic External Data Provider [facility] Final Result documented in this encounter Visit Diagnoses Not on filedocumented in this encounter Care Teams Metal Smelter Relationship Specialty Start Date End Date Bee Moya MD [address] [facility] [place] [address] PCP - General Internal Medicine 06/26/22 Bee Moya MD [address] [facility] [place] [address] PCP - [employer] 10/19/21 Dr. Ledezma Referring Physician Oncology 08/08/23 Dr. Elliott Referring Physician Cardiology 08/08/23 Dr. Clemons Referring Physician Rheumatology 08/08/23 Dr. Becerril Referring Physician Pulmonary Disease 08/08/23 Dr. Franco Referring Physician Otolaryngology 08/08/23 Emely Bonilla Referring Physician Palliative Medicine 08/08/23 documented as of this encounter
--- OUTSIDE RECORDS SUMMARY | 2024-08-24 11:35 | XMS_ITS | Encounter Summary ---
Author Organization [facility] Address [address] [facility] [place] [address] Care Team Providers Care Payer Specialist Name Role Phone Bee Moya MD Primary Care Provider [phone] Bee Moya MD Unavailable [phone] Encounter Details Date Type Department Care Team [...] EDT Office Visit [facility] OB [address] [facility] [place] [address] Cristine Azul NP [address] [place] [address] 09/10/2024 9:30 AM EDT Office Visit [facility] IM [address] [place] [address] Lina Charles, STRUCTURAL IRON ERECTOR [address] [place] [address] 08/19/2025 11:00 AM EDT Office Visit [facility] B[facility] OB [address] [facility] [place] [address] Sebastian Montiel, DO [address] [facility] [place] [address] documented as of this encounter Procedures Procedure [...] at sacroiliac joints. No active sacroiliitis evident Hospice Executive Director: PSCB Transcribe Date/Time: Oct 09 2023 2:37P Dictated by : SHANNEN HILLIARD MD This examination was interpreted and the report reviewed and electronically signed by: SHANNEN HILLIARD MD on Oct 09 2023 2:39PM EST [id number]^AGFA_IDC^SI^ACN Procedure Note Radiology, Radiologist, - 10/09/2023 * [...] at sacroiliac joints. No active sacroiliitis evident Hospice Executive Director: PSCEdwin Transcribe Date/Time: Oct 09 2023 2:37P Dictated by : SHANNEN HILLIARD MD This examination was interpreted and the report reviewed and electronically signed by: SHANNEN HILLIARD MD on Oct 09 2023 2:39PM EST [id number]^AGFA_IDC^SI^ACN us Generic External Data Provider [facility] Final Result documented in this encounter Visit Diagnoses Not on filedocumented in this encounter Additional Health Concerns Assessment Noted Time PHQ-9 Depression Total Score: 2 08/26/19 24 9:00 AM EDT documented as of this encounter Care Teams Payer Specialist Relationship Specialty Start Date End Date Bee Moya MD [address] [facility] [place] [address] PCP - General Internal Medicine 06/26/22 Bee Moya MD [address] [facility] [place] [address] PCP - [employer]et[employer] 10/19/21 Dr. Ledezma Referring Physician Oncology 08/08/23 Dr. Elliott Referring Physician Cardiology 08/08/23 Dr. Clemons Referring Physician Rheumatology 08/08/23 Dr. Becerril Referring Physician Pulmonary Disease 08/08/23 Dr. Franco Referring Physician Otolaryngology 08/08/23 Emely Bonilla Referring Physician Palliative Medicine 08/08/23 documented as of this encounter
--- OUTSIDE RECORDS SUMMARY | 2024-08-24 11:35 | XMS_ITS | Encounter Summary ---
Author Organization [facility] Address [address] [facility] [place] [address] Care Team Providers Care Electrostatic Paint Operator Name Role Phone Bee Moya MD Primary Care Provider [phone] Bee Moya MD Unavailable [phone] Encounter Details Date Type Department Care Team [...] OB [address] [facility] [place] [address] Cristine Azul NP [address] [place] [address] 09/10/2024 9:30 AM EDT Office Visit [facility] IM [address] [place] [address] Lina Charles, BULLDOZER/LOADER/COMPACTOR/SCRAPER [address] [place] [address] 08/19/2025 11:00 AM EDT Office Visit [facility] OB [address] [facility] [place] [address] Sebastian Montiel, DO [address] [facility] [place] [address] documented as of this encounter Procedures Procedure [...] and soft tissues: Unremarkable. IMPRESSION: See result. Territory Sales Manager: DEDE Transcribe Date/Time: Apr 21 2023 5:48A Dictated by : KOLE KEARNEY MD This examination was interpreted and the report reviewed and electronically signed by: KOLE KEARNEY MD on Apr 21 2023 5:49AM EST [id number]^AGFA_IDC^SI^ACN Procedure Note Radiology, Radiologist, - 04/21/2023 * [...] and soft tissues: Unremarkable. IMPRESSION: See result. Territory Sales Manager: PSCEdwin Transcribe Date/Time: Apr 21 2023 5:48A Dictated by : KOLE KEARNEY MD This examination was interpreted and the report reviewed and electronically signed by: KOLE KEARNEY MD on Apr 21 2023 5:49AM EST [id number]^AGFA_IDC^SI^ACN Generic External Data Provider [facility] Final Result documented in this encounter Visit Diagnoses Not on filedocumented in this encounter Care Teams Electrostatic Paint Operator Relationship Specialty Start Date End Date Bee Moya MD [address] [place] [address] PCP - General Internal Medicine 06/26/22 Bee Moya MD [address] [place] [address] PCP - Aet[employer] 10/19/21 Dr. Ledezma Referring Physician Oncology 08/08/23 Dr. Elliott Referring Physician Cardiology 08/08/23 Dr. Clemons Referring Physician Rheumatology 08/08/23 Dr. Becerril Referring Physician Pulmonary Disease 08/08/23 Dr. Franco Referring Physician Otolaryngology 08/08/23 Emely Bonilla Referring Physician Palliative Medicine 08/08/23 documented as of this encounter
--- OUTSIDE RECORDS SUMMARY | 2024-08-24 11:35 | XMS_ITS | Clinical Summary ---
Author Organization [facility] Address [address] [place] [address] Care Team Providers Care Behavior Therapist Name Role Phone Bee Moya MD Primary Care Provider [phone] Allergies Active Allergy Reactions Criticality Noted Date [...] Insurance MEDICARE MEDICARE [place]ICAID [place] Care Teams Behavior Therapist Relationship Specialty Start Date End Date Bee Moya MD [address] [address] PCP - General Internal Medicine 08/15/17
--- OUTSIDE RECORDS SUMMARY | 2024-08-24 11:35 | XMS_ITS | Encounter Summary ---
Author Organization [facility] Address [address] [place] [address] Care Team Providers Care Cabin Crew Name Role Phone Bee Moya MD Primary Care Provider [phone] Bee Moya MD Unavailable [phone] Reason for Visit * Reason Comments Med Refill Encounter Details Date Type Department Care Team (Late Contact Info) Description 08/10/2024 Refill [facility] IM [address] [place] [address] Bee Moya MD [address] [facility] [address] [place], [place] [id number] Dermatitis Social History Tobacco Use Types Packs/Day [...] Visit [facility] B[facility] OB [address] [place] [address] Cristine Azul, WEALTH MANAGEMENT DIRECTOR [address] [place] [address] 09/10/2024 9:30 AM EDT Office Visit [facility] IM [address] [facility] [place] [address] Lina Charles, WEALTH MANAGEMENT DIRECTOR [address] [facility] [place] [address] 08/19/2025 11:00 AM EDT Office Visit [facility] BCP OB [address] [facility] [place] [address] Sebastian Montiel, DO [address] [facility] [place] [address] documented as of this encounter Visit Diagnoses Diagnosis Dermatitis Contact dermatitis and other eczema, due to unspecified cause documented in this encounter Additional Health Concerns Assessment Noted Time PHQ-9 Depression Total Score: 5 06/09/19 25 8:00 AM EDT documented as of this encounter Care Teams Cabin Crew Relationship Specialty Start Date End Date Bee Moya MD [address] [facility] [place] [address] PCP - General Internal Medicine 06/26/22 Bee Moya MD [address] [facility] [place] [address] PCP - Aet[employer] 10/19/21 Dr. Ledezma Referring Physician Oncology 08/08/23 Dr. Elliott Referring Physician Cardiology 08/08/23 Dr. Clemons Referring Physician Rheumatology 08/08/23 Dr. Becerril Referring Physician Pulmonary Disease 08/08/23 Dr. Franco Referring Physician Otolaryngology 08/08/23 Emely Bonilla Referring Physician Palliative Medicine 08/08/23 documented as of this encounter
--- OUTSIDE RECORDS SUMMARY | 2024-08-24 11:35 | XMS_ITS | Encounter Summary ---
Author Organization [facility] Address [address] [facility] [place] [address] Care Team Providers Care Steel Erector Apprentice Name Role Phone Bee Moya MD Primary Care Provider [phone] Bee Moya MD Unavailable [phone] Encounter Details Date Type Department Care Team [...] Upcoming Encounters Date Type Department Care Team ([facility] Contact Info) Description 09/09/2024 10:20 AM EDT Office Visit [facility] OB [address] [facility] [place] [address] Cristine Azul NP [address] [place] [address] 09/10/2024 9:30 AM EDT Office Visit [facility] IM [address] [place] [address] Lina Charles, POLISHER EYEGLASS FRAMES [address] [place] [address] 08/19/2025 11:00 AM EDT Office Visit [facility] B[facility] OB [address] [facility] [place] [address] Sebastian Montiel, DO [address] [facility] [place] [address] documented as of this encounter Procedures Procedure [...] likely related to post radiation change, stable. Efficiency Analyst: DEDE Transcribe Date/Time: Nov 21 2023 11:58A Dictated by : YOGESH DAVIS MD This examination was interpreted and the report reviewed and electronically signed by: YOGESH DAVIS MD on Nov 21 2023 12:06PM EST [id number]^AGFA_IDC^SI^ACN Procedure Note Radiology, Radiologist, - 11/21/2023 * [...] likely related to post radiation change, stable. Efficiency Analyst: DEDE Transcribe Date/Time: Nov 21 2023 11:58A Dictated by : YOGESH DAVIS MD This examination was interpreted and the report reviewed and electronically signed by: YOGESH DAVIS MD on Nov 21 2023 12:06PM EST [id number]^AGFA_IDC^SI^ACN us Generic External Data Provider [facility] [...] 74 - 99 mg/dL [facility] Comment: The [place] Diabetes Association (ADA) provides guidance for cutoff [...] Standards of Medical Care in Diabetes 2016, [place] [employer] Association. Diabetes Care. 2016.39(Suppl 1). [facility] [...] EDT Specimen Type: BLOOD SPECIMEN Ordering Facility: [facility] Address: [address] [place] [address] Original Ordering Provider: LINETTE LOPEZ us Generic External Data Provider MELVIN bradford Result [facility] [address] [address] * [facility] CBC W AUTO DIFF BLD [...] EDT Specimen Type: BLOOD SPECIMEN Ordering Facility: [facility] Address: [address] [place] [address] Original Ordering Provider: LINETTE LOPEZ us Generic External Data Provider [facility] F inal Result [facility] [address] [facility] [address] [place] [address] documented in this encounter Visit Diagnoses Not on filedocumented in this encounter Additional Health Concerns Assessment Noted Time PHQ-9 Depression Total Score: 2 08/26/19 24 9:00 AM EDT documented as of this encounter Care Teams Steel Erector Apprentice Relationship Specialty Start Date End Date Bee Moya MD [address] [facility] [place] [address] PCP - General Internal Medicine 06/26/22 eBe Moya MD [address] [facility] [address] [place], [place] [address] PCP - [employer]et[employer] 10/19/21 Dr. Ledezma Referring Physician Oncology 08/08/23 Dr. Elliott Referring Physician Cardiology 08/08/23 Dr. Clemons Referring Physician Rheumatology 08/08/23 Dr. Becerril Referring Physician Pulmonary Disease 08/08/23 Dr. Franco Referring Physician Otolaryngology 08/08/23 Emely Bonilla Referring Physician Palliative Medicine 08/08/23 documented as of this encounter
--- OUTSIDE RECORDS SUMMARY | 2024-08-24 11:35 | XMS_ITS | Clinical Summary ---
Author Organization [facility] Address [address] [place] [address] Care Team Providers Care Shirt Turner Name Role Phone Bee Moya MD Primary Care Provider [phone] Allergies Active Allergy Reactions Criticality Noted Date [...] morning for 95 doses. 30 tablet 3 07/11/19 025 Active clopidogrel (Plavix) 75 mg tabletIndication s:NSTEMI (non-ST elevated myocardial infarction) (CMS/HCC) Take 1 tablet (75 mg) by mouth in the morning for 96 doses. 30 tablet 3 07/11/19 25 025 Active lisinopril 5 mg tabletIndication s:Primary hypertension Take 1 tablet (5 mg) by mouth in the morning for 97 doses. 30 tablet 3 07/11/19 025 Active metoprolol succinate XL (Toprol-XL) 100 mg 24 hr tabletIndication s:Primary hypertension Take 1 tablet (100 mg) by mouth in the morning for 97 doses. Do not crush or chew. 30 tablet 3 07/11/19 025 Active rosuvastatin (Crestor) 20 mg tabletIndication s:NSTEMI (non-ST elevated myocardial infarction) (CMS/HCC) Take 1 tablet (20 mg) by mouth in the morning for 95 doses. 30 tablet 3 07/11/19 025 Active amoxicillin-pot clavulanate (Augmentin) 875-125 mg tablet Take 1 tablet by mouth twice a day. Active atenolol (Tenormin) 50 mg tablet Take 50 mg by mouth in the morning. 05/08/19 17 Active spironolactone (Aldactone) 25 mg tabletIndication s:Heart failure with mildly reduced ejection fraction (CMS/HCC) Take 0.5 tablets (12.5 mg) by mouth in the morning. 45 tablet 3 07/21/19 25 026 Active ivabradine (Corlanor) 5 mg tabletIndication s:Inappropriate sinus tachycardia Take 1 tablet (5 mg) by mouth two times daily. 180 tablet 3 07/21/19 25 026 Active nitroglycerin (Nitrostat) 0.4 mg SL tabletIndication s:Unstable angina pectoris (CMS/HCC) Place 1 tablet (0.4 mg) under the tongue every 5 (five) minutes if needed for chest pain. 30 tablet 3 08/25/19 25 Active nitroglycerin (Nitrostat) 0.[address] 0.4 mg under the tongue every 5 (five) minutes if needed for chest pain. 025 Discontin ued(Reord er) Active Problems Problem Noted Date Diagnosed Date [...] CO 7.48 L/min based on RHC at [facility] 02/2024 multifactorial in the setting of history of PE, mediastinal radiation and post radiation fibrosis, bronchiectasis Assessment & Plan (07/08/2024 12:10 PM EDT): Mild pulmonary hypertension mPAP 22, PVR 1.74 morillo, pcwp 4, CO 7.48 L/min based on RHC at [facility] 02/2024 multifactorial in the setting of history of PE, mediastinal radiation and post radiation fibrosis, bronchiectasis Assessment & Plan (07/07/2024 4:34 PM EDT): Mild pulmonary hypertension mPAP 22, PVR 1.74 morillo, pcwp 4, CO 7.48 L/min based on RHC at [facility] 02/2024 multifactorial in the setting of [...] (07/20/2024): Added automatically from request for surgery [id number] Asymptomatic premature menopause 09/05/2016 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 Protocol(s): IRB #3422 BU/Cy/BOTTLE LABELER Preparative regimen: Bu/Cy/BOTTLE LABELER Mobilization regimen: G+P Stem cell source: Apheresis CD34 cell dose (x10e6/kg): 6.17. 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 (Primary Dx); Status post insertion of drug eluting coronary artery stent; Heart failure with mildly reduced ejection fraction (CMS/HCC); Mixed hyperlipidemia; Inappropriate sinus tachycardia; History of pulmonary embolism 07/17/2024 Orders Only [address] [address] Zoran Epstein MD 07/06/2024 5:21 PM EDT - 07/06/2024 6:21 PM EDT Surgery [facility] Vascular Lab [address] [place] [address] Benjamin Dang MD Percutaneous coronary intervention 07/06/2024 6:00 AM EDT - 07/09/2024 6:23 PM EDT Hospital Encounter [facility] [address] [place] [address] Jan Kelly MD Sanaullah, Babar, MD Iqbal, [...] = 0.6 oz pur e alcohol) occasional [facility] Utilities Answer Date Recorded In the past 12 months has th e [facility], gas, oil, or water company threatened to [...] any time in the past 12 m [facility], were you homeless or living in a retirement (including now)? No 07/06/2024 Hunger Vital Sign [...] Description 11/09/2024 9:00 AM EDT Office Visit [facility] [address] [place] [address] Temo Yu MD [address] [facility] [place] [place] [id number] Health Maintenance Due Date Last Done Comments Medicare Annual Wellness (AWV) 1982 COVID-19 Vaccine (#1) 07/12/1987 Depression Screening 1994 Varicella Vaccines (1 of 2 - 13+ 2-dose series) 07/12/1995 Zoster Vaccines (1 of 2) 2001 HPV/Cotest 2012 IPV Vaccines (3 of 3 - Adult catch-up series) 09/08/2014 03/11/2014, 12/21/2013, 10/14/2013 Mammogram 2022 10/17/2018 Influenza Vaccine (#1) 2024 , 12/16/2014, 12/21/2013 Diabetes: Hemoglobin A1C 07/06/2025 07/06/2024 Cervical Cancer Screening 08/13/2027 Pap Smear 08/13/2027 08/12/2024 Pneumococcal Vaccine: Pediatrics (0 to 5 Years) [...] Completed 06/16/2014, 12/21/2013, 10/14/2013, Additional history exists HPV Vaccines Aged Out No longer eligi ble based on patient's age to complete this topic Meningococcal B Vaccine Aged Out No l onger eligible based on patient's age to complete this topic Rotavirus Vaccines Aged Out No longer eligible based on patient's age to complete this topic Medical Devices Implanted Type Area Buffer Automatic Device Identifier Shelf Expiration Date Model / Serial / Lot Stent,Synergy Mr 3.00 X 28 - [id number] Implanted:Qty : 1 on 07/06/2024 by Benjamin Dang MD at [facility] Drug Eluting Stent N/A: [employer] [id number] 12/08/2025 [id number] / / [id number] Stent,Synergy Mr 2.50 X 12 - [id number] Implanted:Qty : 1 on 07/06/2024 by Benjamin Dang MD at [facility] Drug Eluting Stent N/A: [employer] [id number] 09/16/2025 [id number] / / [id number] Procedures Procedure Name Priority Date/Time Associated Diagnosis [...] - 145 mmol/L 07/09/2024 8:50 AM EDT [facility] ([facility]) Potassium 4.3 3.5 - 5.1 mmol/L 07/09/2024 8:50 AM EDT [facility] ([facility]) Chloride 101 98 - 107 mmol/L 07/09/2024 8:50 AM EDT [facility] ([facility]) CO2 31 21 - 31 mmol/L 07/09/2024 8:50 AM EDT [facility] ([facility]) BUN 10 7 - 25 mg/dL 07/09/2024 8:50 AM EDT [facility] ([facility]) Creatinine 0.60 0.60 - 1.20 mg/dL 07/09/2024 8:50 AM EDT [facility] ([facility]) Glucose 158(H) 70 - 100 mg/dL 07/09/2024 8:50 AM EDT [facility] ([facility]) Calcium 9.3 8.6 - 10.3 mg/dL 07/09/2024 8:50 AM EDT [facility] ([facility]) Anion Gap 10 7 - 20 mmol/L 07/09/2024 8:50 AM EDT [facility] ([facility]) eGFR 115.6 >60.0 mL/min/1. 73m*2 07/09/2024 8:50 AM EDT [facility] ([facility]) Comment:[facility] s estimated glomerular filtration rate (eGFR) will [...] BUN/Creatinine Ratio 16.7 06/19 8:50 AM EDT [facility] ([facility]) Blood Venous blood specimen / Unknown Venipuncture / Unknown 07/09/2024 8:24 AM EDT 07/09/2024 8:27 AM EDT us Kayden Carrillo MD LAB BLOOD ORDERABLES Final Re sult [facility] ([facility]) [address] [place] [address] * (ABNORMAL) CBC (07/09/2024 6:46 AM EDT) Only the most recent of5 resultswithin the time period is included. Auto WBC 14.54(H) 4.00 - 10.60 10*3/uL 07/09/2024 7:23 AM EDT [facility] ([facility]) RBC 4.62 3.80 - 5.00 10*6/uL 07/09/2024 7:23 AM EDT [facility] ([facility]) Hemoglobin 14.3 12.0 - 15.0 g/dL 07/09/2024 7:23 AM EDT [facility] ([facility]) Hematocrit 43.5 36.0 - 45.0 % 07/09/2024 7:23 AM EDT [facility] ([facility]) MCV 94.2 82.0 - 98.0 fL 07/09/2024 7:23 AM EDT [facility] ([facility]) MCH 31.0 27.0 - 33.0 pg 07/09/2024 7:23 AM EDT [facility] ([facility]) MCHC 32.9 32.0 - 35.0 g/dL 07/09/2024 7:23 AM EDT [facility] ([facility]) RDW 12.7 11.5 - 15.0 % 07/09/2024 7:23 AM EDT [facility] ([facility]) Platelets 320 150 - 400 10*3/uL 07/09/2024 7:23 AM EDT [facility] ([facility]) Blood Venous blood specimen / Unknown Venipuncture / Unknown 07/09/2024 6:46 AM EDT 07/09/2024 6:52 AM EDT Jan Kelly MD LAB BLOOD ORDERABLES Final Resul t [facility] ([facility]) [address] [place] [address] * MRA head wo IV contrast (07/08/2024 [...] motion artifact. Electronically signed: LORIN BRANDT MD. us Farrah Mendez MD IMG MRI PROCEDURES Final Result * Red Top (07/08/2024 1:33 PM EDT) Pathologist [facility] Extra Tube Hold for add-ons. 07/08/2024 3:01 PM EDT [facility] ([facility]) Comment:Auto resulted. Blood Venous blood specimen / Unknown 07/08/2024 1:33 PM EDT 07/08/2024 1:39 PM EDT Taya Valdez MD LAB BLOOD ORDERABLES Final Resul t [facility] ([facility]) [address] [place] [address] * (ABNORMAL) Anti-Xa (Heparin Level) (07/08/2024 1:33 PM EDT) Only the most recent of5 resultswithin the time period is included. Anti-Xa (Heparin) 0.11(LL) 0.3 - 0.7 IU/mL 07/08/2024 2:15 PM EDT [facility] ([facility]) Comment:Rivaroxaban and Apix aban will interfere with the anti Xa assay used to monitor UFH and LMWH. Blood Venous blood specimen / Unknown Venipuncture / Unknown 07/08/2024 1:33 PM EDT 07/08/2024 1:38 PM EDT us Taya Valdez MD LAB BLOOD ORDERABLES Final Resul t Performing Organization Address City/[facility] Co de Phone Number [facility] ([facility]) [address] [place] [address] * Hepatic function panel (07/08/2024 1:33 PM EDT) Total Bilirubin 0.8 0.3 - 1.0 mg/dL 07/08/2024 2:17 PM EDT [facility] ([facility]) Bilirubin, Direct 0.2 0 - 0.2 mg/dL 07/08/2024 2:17 PM EDT [facility] ([facility]) Alkaline Phosphatase 49 34 - 104 U/L 07/08/2024 2:17 PM EDT [facility] ([facility]) AST 27 13 - 39 U/L 07/08/2024 2:17 PM EDT [facility]) ALT (SGPT) 27 7 - 52 U/L 07/08/2024 2:17 PM EDT [facility] ([facility]) Total Protein 6.3 6.0 - 8.3 g/dL 07/08/2024 2:17 PM EDT [facility] ([facility]) Albumin 3.8 3.5 - 5.7 g/dL 07/08/2024 2:17 PM EDT [facility] ([facility]) Blood Venous blood specimen / Unknown Venipuncture / Unknown 07/08/2024 1:33 PM EDT 07/08/2024 1:50 PM EDT us Farrah Mendez MD LAB BLOOD ORDERABLES Final Resul t [facility]) [address] [place] [address] * aPTT - baseline (07/07/2024 6:02 PM EDT) Only the most recent of2 resultswithin the time period is included. aPTT 26.2 25.0 - 35.0 Seconds 07/07/2024 6:55 PM EDT [facility] ([facility]) Comment:Clinical significanc e of the APTT is questionable in the presence of heparin. Blood Venous blood specimen / Unknown Venipuncture / Unknown 07/07/2024 6:02 PM EDT 07/07/2024 6:55 PM EDT us Taya Valdez MD LAB BLOOD ORDERABLES Final Resul t Performing Organization Address City/[facility]/ZIP Co de Phone Number [facility]) [address] [place] [address] * Platelet count (07/07/2024 6:02 PM EDT) Platelets 304 150 - 400 10*3/uL 07/07/2024 6:50 PM EDT [facility] ([facility]) Blood Venous blood specimen / Unknown Venipuncture / Unknown 07/07/2024 6:02 PM EDT 07/07/2024 6:39 PM EDT us Taya Valdez MD LAB BLOOD ORDERABLES Final Resul t Performing Organization Address City/[facility]/ZIP Co de Phone Number [facility]) [address] [place] [phone] * CT head wo IV contrast (07/07/2024 5:58 PM EDT) Anatomical Region Laterality Modality Head, Neck Computed Tomogra phy 07/07/2024 6:22 PM EDT Impressions 07/07/2024 6:34 PM EDT Impression: * No acute intracranial abnormality. * Slitlike lateral lateral ventricles and partially empty sella can be seen in idiopathic intracranial hypertension. Clinical correlation recommended. Approved by:Jose Charlton07/07/2024 6:30 PM. Carlo Hull,have [...] 3,570(HH) <15 ng/L 07/07/2024 12:17 AM EDT [facility] ([facility]) Blood Venous blood specimen / Unknown Venipuncture / Unknown 07/06/2024 11:10 PM EDT 07/06/2024 11:36 PM EDT Jhonny Guillen MD LAB BLOOD ORDERABLES Final Re sult [facility] ([facility]) [address] [place] [address] * Light Blue Top (07/06/2024 11:10 PM EDT) [facility] Extra Tube Hold for add-ons. 07/07/2024 1:01 AM EDT [facility] ([facility]) Comment:Auto resulted. Blood Venous blood specimen / Unknown Venipuncture / Unknown 07/06/2024 11:10 PM EDT 07/06/2024 11:37 PM EDT Jhonny Guillen MD LAB BLOOD ORDERABLES Final Re sult Performing Organization Address City/[facility]/ZIP Co de Phone Number [facility] ([facility]) [address] [place] [address] * ECG 12 lead (07/06/2024 5:40 PM EDT) Only the most recent of4 resultswithin the time period is included. Ventricular Rate 106 BPM GE MUSE Atrial Rate 106 BPM GE MUSE VA Interval 162 ms GE MUSE QRS DURATION 100 ms GE MUSE QT Interval 336 ms GE MUSE QTC CALCULATION(BAZE TT) 446 ms GE MUSE P [place] 54 degrees GE MUSE R-[place] -27 degrees GE MUSE T Wave [place] 8 degrees GE MUSE 07/06/2024 5:23 PM [...] for LVH, may be normal variant ( [place]aton product ) Cannot rule out Anterior infarct [...] 1 1 [facility] Heart Station [address] [id number] [phone] (fax) Echocardiogram-[facility] Name: CELSO WELLER Study Date: 07/06/2024 03:45 PM B/P: 94 mmHg/68 mmHg HR: 103 bpm Date of : 1980 Location: [facility] Height: 72 in. Age: 43 year(s) Patient [...] Procedure Staff Reading Group: [facility] Sound Controller: Andrew Tellez RDCS Ordering Physician: [id number] Wall Motion Scores -1 - hyperkinesia, 0 - not evaluated, 1 - normal, 2 - hypokinesia, 3 - akinesia, 4 - dyskinesia Procedure Note Tahmina Tucker MD - 07/06/2024 1 1 [facility] Heart Station [address] [place] [address] [phone] (fax) Echocardiogram-[facility] Name: CELSO WELLER Study Date: 07/06/2024 03:45 PM B/P: 94 mmHg/68 mmHg HR: 103 bpm Date of : 1980 Location: [facility] Height: 72 in. Age: 43 year(s) Patient [...] Procedure Staff Reading Group: [facility] Sound Controller: Andrew Tellez RDCS Ordering Physician: [id number] Wall Motion Scores -1 - hyperkinesia, 0 - not evaluated, 1 - normal, 2 - hypokinesia, 3 - akinesia, 4 - dyskinesia oLy Sweet MD CV ECHO PROCEDURES Final Result * CORONARY ANGIOGRAPHY, PERC CORONARY INTERVENTION, ULTRASOUND - CORONARY (07/06/2024 3:19 PM EDT) Anatomical Region Laterality Modality Other Narrative 07/06/2024 3:34 PM EDT PROCEDURE PHYSICIAN: Jaime Garcia MD Clinical Presentation: 43 y.o. Female presents with a history of non-ST elevation CT Final Impression: 1) Successful drug eluting stent [...] infiltrated over the right radial artery. A 6-St Helenian sheath was placed in right radial artery. [...] was maintained at >[address] 6 [address] Helenian XB3 was engaged to the L main. A BMW guidewire was placed in the mid LAD but would not cross the lesion. Thus a Runthrough then a PT2 was placed in the left anterior descending the lesion was treated with a Emerge 2.5x15 at 10 travis and a Synergy 3x28 drug-eluting stent was placed. An [facility] IVUS was performed. Based on IVUS, [...] Activated Clotting Time (07/06/2024 2:36 PM EDT) [facility] POCT ACT 382(A) 82 - 152 seconds QC Pass/Fail Passed QC LOT # 8 QC Expiration Date 73,125 Blood Venous blood specimen / Unknown 07/06/2024 2:36 PM EDT Narrative Jesus London [place] - 07/07/2024 7:52 AM EDT Qc lot [id number]; turbo operator [id number] Taya Valdez MD POINT OF CARE TEST ENTER/EDIT OR DERABLES Final Result * POCT , urine manually resulted (07/06/2024 12:14 PM EDT) [facility] Preg Test, Ur Negative QC Pass/Fail Passed QC LOT # [id number] QC Expiration Date 04/05/2025 Urine 07/06/2024 12:1 4 PM EDT Jhonny Guillen MD POINT OF CARE TEST ENTER/EDIT ORDERABLES Final Result * hCG, quantitative, (07/06/2024 8:18 AM EDT) [facility] hCG Quant 5 mIU/L 07/06/2024 11:48 AM EDT [facility] ([facility]) Comment: FEMALE REFERENCE RANGES: NON 0-5 4 WKS SINCE PERIOD 3-426 5 WKS SINCE PERIOD 19-7340 6 WKS SINCE PERIOD 1080-56,500 10 WKS SINCE PERIOD 54,100-288,000 18 WKS SINCE PERIOD 8,910-66,000 31 WKS SINCE PERIOD 5,310-27,400 MALE REFERENCE RANGE: 0-2 Blood Venous blood specimen / Unknown Venipuncture / Unknown 07/06/2024 8:18 AM EDT 07/06/2024 8:29 AM EDT us Jhonny Guillen MD LAB BLOOD ORDERABLES Final Re sult Performing Organization Address City/[facility]/ZIP Co de Phone Number [facility]) [address] [place] [address] * (ABNORMAL) B-type natriuretic peptide (07/06/2024 8:18 AM EDT) Only the most recent of2 resultswithin the time period is included. BNP 441(H) 0 - 100 pg/mL 07/06/2024 10:24 AM EDT [facility] ([facility]) Blood Venous blood specimen / Unknown Venipuncture / Unknown 07/06/2024 8:18 AM EDT 07/06/2024 8:30 AM EDT us Loy Sweet MD LAB BLOOD ORDERABLES Final Resul t Performing Organization Address City/[facility]/ZIP Co de Phone Number [facility]) [address] [place] [address] * Hemoglobin A1c (07/06/2024 8:18 AM EDT) Hemoglobin A1C 5.8 4.0 - 6.0 % 07/06/2024 11:56 AM EDT [facility]) Estimated Average Glucose 120 mg/dL 07/06/2024 11:56 AM EDT [facility]) Blood Venous blood specimen / Unknown Venipuncture / Unknown 07/06/2024 8:18 AM EDT 07/06/2024 8:30 AM EDT us Loy Sweet MD LAB BLOOD ORDERABLES Final Resul t [facility] ([facility]) [address] [place] [address] * (ABNORMAL) Lipid panel (07/06/2024 8:18 AM EDT) Triglycerides 117 <150 mg/dL 07/06/2024 9:10 AM EDT [facility] ([facility]) Comment: TRIGLYCERIDE REFERENCE RANGE: 20 YEARS AND OLDER CARDIOVASCULAR RISK LESS THAN 150 mg/dL LOW RISK 150 TO 199 mg/dL BORDERLINE RISK 200 mg/dL AND GREATER HIGH RISK Cholesterol 225(H) 120 - 200 mg/dL 07/06/2024 9:10 AM EDT [facility] ([facility]) LDL Calculated 145 0 - 160 mg/dL 07/06/2024 9:10 AM EDT [facility] ([facility]) HDL 57 23 - 92 mg/dL 07/06/2024 9:10 AM EDT [facility] ([facility]) Non HDL Cholesterol 168 07/06/2024 9:10 AM EDT [facility] ([facility]) Total VLDL-C 23 0 - 40 mg/dL 07/06/2024 9:10 AM EDT [facility] ([facility]) Cholesterol/HDL Ratio 3.9 mg/dL 07/06/2024 9:10 AM EDT [facility] ([facility]) Blood Venous blood specimen / Unknown Venipuncture / Unknown 07/06/2024 8:18 AM EDT 07/06/2024 8:29 AM EDT us Loy Sweet MD LAB BLOOD ORDERABLES Final Resul t [facility] ([facility]) [address] [place] [address] * D-dimer, quantitative (07/05/2024 1:51 PM EDT) Blood Venous blood specimen / Unknown us Historical Provider LAB BLOOD ORDERABLES Becky l Result from Last 3 Months Insurance [employer] MEDICARE ADVANTAGE MEDICAID [place] Advance Directives * Full Code (Latest Code Status on File) Date Activated Date Inactivated Comments 07/06/2024 8:01 AM 07/09/2024 8:24 PM Care Teams Shirt Turner Relationship Specialty Start Date End Date Bee Moya MD [address] [place] [address] PCP - General Internal Medicine 07/06/24
--- OUTSIDE RECORDS SUMMARY | 2024-08-24 11:35 | XMS_ITS | Encounter Summary ---
Author Organization [facility] Address [address] [facility] [place] [address] Care Team Providers Care Systems Software Developer Name Role Phone Bee Moya MD Primary Care Provider [phone] Bee Moya MD Unavailable [phone] Encounter Details Date Type Department Care Team [...] EDT Office Visit [facility] [address] [address] Cristine Azul NP [address] [place] [address] 09/10/2024 9:30 AM EDT Office Visit [facility] IM [address] [place] [address] Lina Charles, TAR BOILER [address] [place] [address] 08/19/2025 11:00 AM EDT Office Visit [facility] [address] [place] [address] Sebastian Montiel, DO [address] [place] [address] documented as of this encounter Procedures Procedure [...] No erosive arthropathy 2. Bilateral calcaneal enthesophytes Silk Conditioner: PSCB Transcribe Date/Time: Oct 09 2023 2:40P Dictated by : SHANNEN HILLIARD MD This examination was interpreted and the report reviewed and electronically signed by: SHANNEN HILLIARD MD on Oct 09 2023 2:42PM EST [id number] Procedure Note Radiology, Radiologist, - 10/09/2023 * [...] No erosive arthropathy 2. Bilateral calcaneal enthesophytes Silk Conditioner: PSCB Transcribe Date/Time: Oct 09 2023 2:40P Dictated by : SHANNEN HILLIARD MD This examination was interpreted and the report reviewed and electronically signed by: SHANNEN HILLIARD MD on Oct 09 2023 2:42PM EST [id number]^ACN us Generic External Data Provider [facility] Final Result documented in this encounter Visit Diagnoses Not on filedocumented in this encounter Additional Health Concerns Assessment Noted Time PHQ-9 Depression Total Score: 2 08/26/19 24 9:00 AM EDT documented as of this encounter Care Teams Systems Software Developer Relationship Specialty Start Date End Date Bee Moya MD [address] [place] [address] PCP - General Internal Medicine 06/26/22 Bee Moya MD [address] [place] [place] [address] PCP - [employer] 10/19/21 Dr. Ledezma Referring Physician Oncology 08/08/23 Dr. Elliott Referring Physician Cardiology 08/08/23 Dr. Clemons Referring Physician Rheumatology 08/08/23 Dr. Becerril Referring Physician Pulmonary Disease 08/08/23 Dr. Franco Referring Physician Otolaryngology 08/08/23 Emely Bonilla Referring Physician Palliative Medicine 08/08/23 documented as of this encounter
--- OUTSIDE RECORDS SUMMARY | 2024-08-24 11:35 | XMS_ITS | Encounter Summary ---
Author Organization [facility] Address [address] [facility] [address] Care Team Providers Care Hand Drawer In Helper Name Role Phone Bee Moya MD Primary Care Provider [phone] Bee Moya MD Unavailable [phone] Encounter Details Date Type Department Care Team (Late Contact Info) Description 08/12/2024 Clinisync Result Encounter NOMS External Department Unsolicited Cristine Azul, SAMANTHA [address] [facility] [place] [address] Social History Tobacco Use Types Packs/Day [...] EDT Office Visit [facility] [address] [facility] [address] Cristine Azul NP [address] [place] [address] 09/10/2024 9:30 AM EDT Office Visit [facility] LPS IM [address] [address] [address] Mynorcésar Lina Jorge, FIELD TRAINING AGENT [address] [facility] [address] [place], [place] [id number] 08/19/2025 11:00 AM EDT Office Visit [facility] BCP OB [address] [facility] [place] [address] Sebastian Montiel DO [address] [facility] [place] [address] documented as of this encounter Procedures Procedure Name Priority Date/Time Associated Diagnosis Comments IGP,APTIMA HPV,AGE GDLN Routine 08/12/2024 10:02 AM EDT documented in this encounter Results * IGP,APTIMA HPV,AGE GDLN (08/12/2024 10:02 AM EDT) AGE GDLN ACOG TESTING Note . [facility] Comment: TESTS RESULT FLAG UNITS REF RANGE LAB Clinician Provided Cytology Information Source.............Cervix;Endocervix No. of containers..01 ThinPrep Vial Age Algo ACOG Jackie... FLAG LEGEND: L-Low Normal,H-High Normal,LL-Alert Low,HH-Alert High <-Panic Low,>-Panic High,A-Abnormal,AA-Critical Abnormal Performed at: 01 =G [facility] [address] [place] [address] Tahmina Vinson MD, IGP, APTIMA HPV, RFX 16/18,45 Note . [facility] Comment: TESTS RESULT FLAG UNITS REF RANGE LAB DIAGNOSIS: 02 NEGATIVE FOR INTRAEPITHELIAL LESION OR MALIGNANCY. Specimen adequacy: 02 Satisfactory for evaluation. Endocervical and/or squamous metaplastic cells (endocervical component) are present. Performed by: 02 Keven Chamorro, Cake Icer And Packer ([facility]) . 02 Note: Note 02 The Pap [...] <-Panic Low,>-Panic High,A-Abnormal,AA-Critical Abnormal Performed at: 02 WB [facility] [place] [address] [place] [address] Tahmina Vinson MD, HPV APTIMA Negative Negative [facility] Comment: This nucleic acid amplification test detects fourteen high- risk HPV types (16,18,31,33,35,39,45,51,52,56,58,59,66,68) without differentiation. Performed at: = - [facility] [id number] Broom Maker: Tahmina Vinson MD, Phone: [phone] Performed at: - [facility] [id number] Broom Maker: Tahmina Vinson MD, Phone: [phone] 08/12/2024 10:0 2 AM EDT 08/12/2024 3:06 PM EDT Narrative [facility] - 08/14/2024 4:09 PM EDT BRUSH-SPATULA CERVIX ENDOCERVIX Cristine Azul FIELD TRAINING AGENT LAB BLOOD ORDERABLES Final Re sult [facility] documented in this encounter Visit Diagnoses Not on filedocumented in this encounter Additional Health Concerns Assessment Noted Time PHQ-9 Depression Total Score: 5 06/09/19 25 8:00 AM EDT documented as of this encounter Care Teams Hand Drawer In Helper Relationship Specialty Start Date End Date Bee Moya MD [address] [facility] [place] [address] PCP - General Internal Medicine 06/26/22 Bee Moya MD [address] [place] [address] PCP - [employer] 10/19/21 Dr. Ledezma Referring Physician Oncology 08/08/23 Dr. Elliott Referring Physician Cardiology 08/08/23 Dr. Clemons Referring Physician Rheumatology 08/08/23 Dr. Becerril Referring Physician Pulmonary Disease 08/08/23 Dr. Franco Referring Physician Otolaryngology 08/08/23 Emely Bonilla Referring Physician Palliative Medicine 08/08/23 documented as of this encounter
--- OUTSIDE RECORDS SUMMARY | 2024-08-24 11:35 | XMS_ITS | Encounter Summary ---
Author Organization [facility] Address [address] [facility] [place] [place] [address] Care Team Providers Care Subacute Nurse Name Role Phone Bee Moya MD Primary Care Provider [phone] Bee Moya MD Unavailable [phone] Encounter Details Date Type Department Care [...] Visit [facility] BCP OB [address] [facility] [place] [address] Cristine Azul NP [address] [place] [address] 09/10/2024 9:30 AM EDT Office Visit [facility] LPS IM [address] [place] [address] Lina Charles, BULK LOADER [address] [place] [address] 08/19/2025 11:00 AM EDT Office Visit [facility] BCP OB [address] [facility] [place] [address] Sebastian Montiel, DO [address] [facility] [place] [address] documented as of this encounter Procedures Procedure [...] DATE OF EXAM: Jan 15 2024 11:18AM [facility] 0032 - NM LUNG VENT / PERF [...] PE protocol chest CT may be performed. Manager [place]: PSCEdwin Transcribe Date/Time: Jan 15 2024 11:50A Dictated by : CAIO HINKLE MD This examination was interpreted and the report reviewed and electronically signed by: CAIO HINKLE MD on Jan 15 2024 11:53AM EST [id number]^AGFA_[id number]^SI^ACN Procedure Note Radiology, Radiologist, - 01/15/2024 * * *Final Report* * * DATE OF EXAM: Jan 15 2024 11:18AM [facility] 0032 - NM LUNG VENT / PERF [...] PE protocol chest CT may be performed. Manager [place]: DEDE Transcribe Date/Time: Jan 15 2024 11:50A Dictated by : CAIO HINKLE MD This examination was interpreted and the report reviewed and electronically signed by: CAIO HINKLE MD on Jan 15 2024 11:53AM EST [id number]^AGFA_[id number]^SI^ACN Generic External Data Provider [facility] Final Result documented in this encounter Visit Diagnoses Not on filedocumented in this encounter Additional Health Concerns Assessment Noted Time PHQ-9 Depression Total Score: 5 11/28/19 24 8:00 AM EDT documented as of this encounter Care Teams Subacute Nurse Relationship Specialty Start Date End Date Bee Moya MD [address] [place] [address] PCP - General Internal Medicine 06/26/22 Bee Moya MD [address] [place], [place] [address] PCP - [employer] 10/19/21 Dr. Ledezma Referring Physician Oncology 08/08/23 Dr. Elliott Referring Physician Cardiology 08/08/23 Dr. Clemons Referring Physician Rheumatology 08/08/23 Dr. Becerril Referring Physician Pulmonary Disease 08/08/23 Dr. Franco Referring Physician Otolaryngology 08/08/23 Emely Bonilla Referring Physician Palliative Medicine 08/08/23 documented as of this encounter
--- OUTSIDE RECORDS SUMMARY | 2024-08-24 11:35 | XMS_ITS | Encounter Summary ---
Author Organization [facility] Address [address] [facility] [place] [address] Care Team Providers Care Felt Hat Mellowing Machine Operator Name Role Phone Bee Moya MD Primary Care Provider [phone] Bee Moya MD Unavailable Encounter Details Date Type Department Care Team [...] Upcoming Encounters Date Type Department Care Team ([facility] Contact Info) Description 09/09/2024 10:20 AM EDT Office Visit [facility] BCP OB 102 [facility] [place] [address] Cristine Azul NP [address] [place] [address] 09/10/2024 9:30 AM EDT Office Visit [facility] LPS IM [address] [place] [address] Lina Charles, HOME THEATER EXPERT [address] [place] [address] 08/19/2025 11:00 AM EDT Office Visit [facility] BCP OB [address] [facility] [place] [address] Sebastian Montiel, DO [address] [facility] [place] [address] documented as of this encounter Procedures Procedure [...] remainder of the procedure. IMPRESSION: NORMAL ESOPHAGRAM. Manager Portable: DEDE Transcribe Date/Time: Jul 19 2023 2:16P Dictated by : ADDIS SUTTON MD This examination was interpreted and the report reviewed and electronically signed by: RUPERTO PLASCENCIA MD on Jul 19 2023 2:33PM EST [id number]^AGFA_[id number]^SI^ACN Procedure Note Radiology, Radiologist, - 07/19/2023 * [...] remainder of the procedure. IMPRESSION: NORMAL ESOPHAGRAM. Manager Portable[facility] Transcribe Date/Time: Jul 19 2023 2:16P Dictated by : ADDIS SUTTON MD This examination was interpreted and the report reviewed and electronically signed by: RUPERTO PLASCENCIA MD on Jul 19 2023 2:33PM EST [id number]^AGFA_IDC^SI^ACN us Generic External Data Provider IMG XR PROCEDURES Final Result documented in this encounter Visit Diagnoses Not on filedocumented in this encounter Care Teams Felt Hat Mellowing Machine Operator Relationship Specialty Start Date End Date Bee Moya MD [address] [facility] [place] [address] PCP - General Internal Medicine 06/26/22 Bee Moya MD [address] [facility] [place] [address] PCP - [employer] 10/19/21 Dr. Ledezma Referring Physician Oncology 08/08/23 Dr. Elliott Referring Physician Cardiology 08/08/23 Dr. Clemons Referring Physician Rheumatology 08/08/23 Dr. Becerril Referring Physician Pulmonary Disease 08/08/23 Dr. Franco Referring Physician Otolaryngology 08/08/23 Emely Bonilla Referring Physician Palliative Medicine 08/08/23 documented as of this encounter
--- OUTSIDE RECORDS SUMMARY | 2024-08-24 11:35 | XMS_ITS | Encounter Summary ---
Author Organization [facility] Address [address] [place] [address] Care Team Providers Care Healthcare Analyst Name Role Phone Bee Moya MD Primary Care Provider [phone] Bee Moya MD Unavailable [phone] Encounter Details Date Type Department Care Team (Late st Contact Info) Description 08/14/2022 Clinisync Result Encounter NOMS External Department Unsolicited Bee Moya MD [address] [facility] [address] Social History Tobacco Use Types Packs/Day [...] EDT Office Visit [facility] BCP OB [address] [facility] [place] [address] Cristine Azul, SAMANTHA [address] [facility] [place] [address] 09/10/2024 9:30 AM EDT Office Visit [facility] LPS IM [address] [place] [address] Lina Charles, KNOT PICKER CLOTH [address] [facility] [address] [place], [place] [address] 08/19/2025 11:00 AM EDT Office Visit [facility] BCP OB [address] [facility] [place] [address] Sebastian Montiel, DO [address] [facility] [place] [address] documented as of this encounter Procedures Procedure [...] any questions regarding this interpretation, please call [phone]. If you are unable to reach us at the number above, please feel free to contact [facility] at [phone]. [id number]^AGFA_IDC^SI^ACN Procedure Note Radiology, Radiologist, - 08/14/2022 * [...] any questions regarding this interpretation, please call [phone]. If you are unable to reach us at the number above, please feel free to contact [facility] at [phone]. [id number]^AGFA_IDC^SI^ACN us Bee Moya MD [facility] Final Result documented in this encounter Visit Diagnoses Not on filedocumented in this encounter Care Teams Healthcare Analyst Relationship Specialty Start Date End Date Bee Moya MD [address] [place] [address] PCP - General Internal Medicine 06/26/22 Bee Moya MD [address] [place] [address] PCP - [employer] 10/19/21 Dr. Ledezma Referring Physician Oncology 08/08/23 Dr. Elliott Referring Physician Cardiology 08/08/23 Dr. Clemons Referring Physician Rheumatology 08/08/23 Dr. Becerril Referring Physician Pulmonary Disease 08/08/23 Dr. Franco Referring Physician Otolaryngology 08/08/23 Emely Bonilla Referring Physician Palliative Medicine 08/08/23 documented as of this encounter
--- OUTSIDE RECORDS SUMMARY | 2024-08-24 11:35 | XMS_ITS | Encounter Summary ---
Author Organization [facility] Address [address] [place] [address] Care Team Providers Care Thermoforming Operator Name Role Phone Bee Moya MD Primary Care Provider [phone] Bee Moya MD Unavailable [phone] Encounter Details Date Type Department Care Team ([facility] Contact Info) Description 07/17/2022 Clinisync Result Encounter [...] Upcoming Encounters Date Type Department Care Team ([facility] Contact Info) Description 09/09/2024 10:20 AM EDT Office Visit [facility] BCP OB [address] [place] [address] Cristine Azul, PROFESSOR/NURSE ANESTHETIST [address] [facility] [place] [address] 09/10/2024 9:30 AM EDT Office Visit [facility] LPS IM [address] [place] [address] Lina Charles PROFESSOR/NURSE ANESTHETIST [address] [facility] [address] [place], [place] [address] 08/19/2025 11:00 AM EDT Office Visit [facility] BCP OB [address] [place] [address] Sebastian Montiel, DO [address] [facility] [place] [address] documented as of this encounter Procedures Procedure [...] DATE OF EXAM: Jul 17 2022 1:18PM [facility] 0541 - CT CHEST WO [...] fatty infiltration. No evidence of adrenal mass.. Molder Setter (topogram) images: No additional findings. IMPRESSION: [...] Postradiation changes in the bilateral lung rodriguez. Ed Case Manager: DEDE Transcribe Date/Time: Jul 18 2022 8:19A Dictated by : YOGESH DAVIS MD This examination was interpreted and the report reviewed and electronically signed by: YOGESH DAVIS MD on Jul 18 2022 8:58AM EST [id number]^[email or web address]^SI^ACN * * *Final Report* * * DATE OF EXAM: Jul 17 2022 1:18PM [facility] 0541 - CT CHEST WO [...] fatty infiltration. No evidence of adrenal mass.. Molder Setter (topogram) images: No additional findings. IMPRESSION: [...] Postradiation changes in the bilateral lung rodriguez. Ed Case Manager: DEDE Transcribe Date/Time: Jul 18 2022 8:19A Dictated by : YOGESH DAVIS MD This examination was interpreted and the report reviewed and electronically signed by: YOGESH DAVIS MD on Jul 18 2022 8:58AM EST [id number]^AGFA_[id number]^SI^ACN * * *Final Report* * * DATE OF EXAM: Jul 17 2022 1:18PM [facility] 0541 - CT CHEST WO [...] fatty infiltration. No evidence of adrenal mass.. Molder Setter (topogram) images: No additional findings. IMPRESSION: [...] Postradiation changes in the bilateral lung rodriguez. Ed Case Manager: DEDE Transcribe Date/Time: Jul 18 2022 8:19A Dictated by : YOGESH DAVIS MD This examination was interpreted and the report reviewed and electronically signed by: YOGESH DAVIS MD on Jul 18 2022 8:58AM EST [id number]^AGFA_[id number]^SI^ACN Procedure Note Radiology, Radiologist, - 07/23/2022 * * *Final Report* * * DATE OF EXAM: Jul 17 2022 1:18PM [facility] 0541 - CT CHEST WO [...] fatty infiltration. No evidence of adrenal mass.. Molder Setter (topogram) images: No additional findings. IMPRESSION: [...] Postradiation changes in the bilateral lung rodriguez. Ed Case Manager: DEDE Transcribe Date/Time: Jul 18 2022 8:19A Dictated by : YOGESH DAVIS MD This examination was interpreted and the report reviewed and electronically signed by: YOGESH DAVIS MD on Jul 18 2022 8:58AM EST [id number]^[id number]^SI^ACN * * *Final Report* * * DATE OF EXAM: Jul 17 2022 1:18PM [facility] 0541 - CT CHEST WO [...] fatty infiltration. No evidence of adrenal mass.. Molder Setter (topogram) images: No additional findings. IMPRESSION: [...] Postradiation changes in the bilateral lung rodriguez. Ed Case Manager: PSCB Transcribe Date/Time: Jul 18 2022 8:19A Dictated by : YOGESH DAVIS MD This examination was interpreted and the report reviewed and electronically signed by: YOGESH DAVIS MD on Jul 18 2022 8:58AM EST [id number]^[id number]^SI^ACN * * *Final Report* * * DATE OF EXAM: Jul 17 2022 1:18PM [place] [address] - CT CHEST WO IVCON / PROCEDURE [...] fatty infiltration. No evidence of adrenal mass.. Molder Setter (topogram) images: No additional findings. IMPRESSION: [...] Postradiation changes in the bilateral lung rodriguez. Ed Case Manager: [facility] Transcribe Date/Time: Jul 18 2022 8:19A Dictated by : YOGESH DAVIS MD This examination was interpreted and the report reviewed and electronically signed by: YOGESH DAVIS MD on Jul 18 2022 8:58AM EST [id number]^[email or web address]^SI^ACN Bee Moya MD IMG CT PROCEDURES Final Result documented in this encounter Visit Diagnoses Not on filedocumented in this encounter Care Teams Thermoforming Operator Relationship Specialty Start Date End Date Bee Moya MD [address] [place] [address] PCP - General Internal Medicine 06/26/22 Bee Moya MD [address] [place] [address] PCP - [employer] 10/19/21 Dr. Ledezma Referring Physician Oncology 08/08/23 Dr. Elliott Referring Physician Cardiology 08/08/23 Dr. Clemons Referring Physician Rheumatology 08/08/23 Dr. Becerril Referring Physician Pulmonary Disease 08/08/23 Dr. Franco Referring Physician Otolaryngology 08/08/23 Emely Bonilla Referring Physician Palliative Medicine 08/08/23 documented as of this encounter
--- OUTSIDE RECORDS SUMMARY | 2024-08-24 11:35 | XMS_ITS | Clinical Summary ---
Author Organization [facility] Address [address] [place] [address] Care Team Providers Care Vertical Borer Name Role Phone Unavailable Primary Care Provider [...]
--- OUTSIDE RECORDS SUMMARY | 2024-08-24 11:35 | XMS_ITS | Encounter Summary ---
Author Organization [facility] Address [address] [facility] [place] [address] Care Team Providers Care Mechanical Project Manager Name Role Phone Bee Moya MD Primary Care Provider Bee Moya MD Unavailable [phone] Encounter Details Date Type Department Care Team [...] Upcoming Encounters Date Type Department Care Team ([facility] Contact Info) Description 09/09/2024 10:20 AM EDT Office Visit [facility]CP OB [address] [facility] [place] [address] Cristine Azul NP [address] [place] [address] 09/10/2024 9:30 AM EDT Office Visit [facility] IM [address] [place] [address] Lina Charles, INVESTIGATOR INTERNAL AFFAIRS [address] [place] [address] 08/19/2025 11:00 AM EDT Office Visit [facility] BCP OB [address] [facility] [place] [address] Sebastian Montiel, DO [address] [place] [address] documented as of this encounter Procedures Procedure [...] QTC Calculation(Bazett) : 459 ms Calculated P [place] : 59 degrees Calculated R [place] : -38 degrees Calculated T [place] : 30 degrees Sinus tachycardia Left axis deviation Minimal voltage criteria for LVH, may be normal variant Cannot rule out Anterior infarct , age undetermined Abnormal ECG 1937 NO STEMI Confirmed by SAEED HUDDLESTON MD ([id number]), editor dictionary SHERIN DELACRUZ ([id number]) on 12/19/2023 9:38:42 AM NAME : CELSO POTTS PID : [id number] : 1980 Gender : Female Race : ORD : [id number] Procedure Date : Dec 18 2023 19:31:27 Edit Date : Dec 19 2023 09:38:44 Diagnosis: Sinus tachycardia Left axis deviation Minimal voltage criteria for LVH, may be normal variant Cannot rule out Anterior infarct , age undetermined Abnormal ECG 1937 NO STEMI Confirmed by SAEED HUDDLESTON MD ([id number]), editor dictionary SHERIN DELACRUZ ([id number]) on 12/19/2023 9:38:42 AM Test Reason : Chest Pain Location : 302 : ED ED Overread By : SAEED HUDDLESTON MD Edited By : SHERIN DELACRUZ Referred By : , Acquired by : [id number], Procedure Note Radiology, Radiologist, MD - 12/19/2023 Ventricular Rate : 101 BPM Atrial Rate : 101 BPM P-R Interval : 168 ms QRS Duration : 102 ms Q-T Interval : 354 ms QTC Calculation(Bazett) : 459 ms Calculated P [place] : 59 degrees Calculated R [place] : -38 degrees Calculated T [place] : 30 degrees Sinus tachycardia Left axis deviation Minimal voltage criteria for LVH, may be normal variant Cannot rule out Anterior infarct , age undetermined Abnormal ECG 1937 NO STEMI Confirmed by SAEED HUDDLESTON MD ([id number]), editor dictionary SHERIN DELACRUZ ([id number]) on12/19/2023 9:38:42 AM NAME : CELSO POTTS PID : [id number] : 1980 Gender : Female Race : ORD : [id number] Procedure Date : Dec 18 2023 19:31:27 Edit Date : Dec 19 2023 09:38:44 Diagnosis: Sinus tachycardia Left axis deviation Minimal voltage criteria for LVH, may be normal variant Cannot rule out Anterior infarct , age undetermined Abnormal ECG 1937 NO STEMI Confirmed by SAEED HUDDLESTON MD ([id number]), editor dictionary SHERIN DELACRUZ ([id number]) on12/19/2023 9:38:42 AM Test Reason : Chest Pain Location : 302 : ED ED Overread By : SAEED HUDDLESTON MD Edited By : SHERIN DELACRUZ Referred By : , Acquired by : [id number], us Generic External Data Provider ECG ORDERABLES F inal Result Performing Organization Address City/State/[facility] Co de Phone Number [facility] documented in this encounter Visit Diagnoses Not on filedocumented in this encounter Additional Health Concerns Assessment Noted Time PHQ-9 Depression Total Score: 5 11/28/19 24 8:00 AM EDT documented as of this encounter Care Teams Mechanical Project Manager Relationship Specialty Start Date End Date Bee Moya MD [address] [facility] [place] [address] PCP - General Internal Medicine 06/26/22 Bee Moya MD [address] [facility] [place] [address] PCP - [employer] 10/19/21 Dr. Ledezma Referring Physician Oncology 08/08/23 Dr. Elliott Referring Physician Cardiology 08/08/23 Dr. Clemons Referring Physician Rheumatology 08/08/23 Dr. Becerril Referring Physician Pulmonary Disease 08/08/23 Dr. Franco Referring Physician Otolaryngology 08/08/23 Emely Bonilla Referring Physician Palliative Medicine 08/08/23 documented as of this encounter
--- OUTSIDE RECORDS SUMMARY | 2024-08-24 11:35 | XMS_ITS | Encounter Summary ---
Author Organization [facility] Address [address] [facility] [place] [address] Care Team Providers Care Concrete Products Dispatcher Name Role Phone Bee Moya MD Primary Care Provider [phone] Bee Moya MD Unavailable [phone] Reason for Visit * Reason Onset Date Comments Med Refill 08/12/2024 Encounter Details Date Type Department Care Team (Late Contact Info) Description 08/12/2024 Refill [facility] IM [address] [facility] [place] [address] Bee Moya MD [address] [facility] [place] [address] Anxiety Social History Tobacco Use Types Packs/Day Years [...] on file documented as of this encounter Miscellaneous Notes * Telephone Encounter - Lina Charles NP - 08/13/2024 7:13 AM EDT Oarrs reviewed Rx sent documented in this encounter Plan of Treatment Upcoming Encounters Date Type Department Care Team (Late Contact Info) Description 09/09/2024 10:20 AM EDT Office Visit [facility] BCP OB [address] [facility] [place] [address] Cristine Azul, SATELLITE DISH REPAIRER [address] [facility] [place] [address] 09/10/2024 9:30 AM EDT Office Visit [facility] IM [address] [place] [address] Lina Charles, SATELLITE DISH REPAIRER [address] [place] [address] 08/19/2025 11:00 AM EDT Office Visit [facility] BCP OB [address] [facility] [place] [address] Sebastian Montiel, [address] [facility] [address] [place], [place] [phone] documented as of this encounter Visit Diagnoses Diagnosis Anxiety Anxiety state, unspecified documented in this encounter Additional Health Concerns Assessment Noted Time PHQ-9 Depression Total Score: 5 06/09/19 25 8:00 AM EDT documented as of this encounter Care Teams Concrete Products Dispatcher Relationship Specialty Start Date End Date Bee Moya MD [address] [place] [address] PCP - General Internal Medicine 06/26/22 Bee Moya MD [address] [place] [address] PCP - [employer] 10/19/21 Dr. Ledezma Referring Physician Oncology 08/08/23 Dr. Elliott Referring Physician Cardiology 08/08/23 Dr. Clemons Referring Physician Rheumatology 08/08/23 Dr. Becerril Referring Physician Pulmonary Disease 08/08/23 Dr. Franco Referring Physician Otolaryngology 08/08/23 Emely Bonilla Referring Physician Palliative Medicine 08/08/23 documented as of this encounter
--- OUTSIDE RECORDS SUMMARY | 2024-08-24 11:35 | XMS_ITS | Encounter Summary ---
Author Organization [facility] Address [address] [place] [address] Care Team Providers Care Green Jobs Trainer Name Role Phone Bee Moya MD Primary Care Provider [phone] Bee Moya MD Unavailable [phone] Encounter Details Date Type Department Care Team ([facility] Contact Info) Description 08/20/2024 Orders Only [facility] [address] [facility] [address] Khoa Deshler, MA Social History Tobacco Use Types Packs/Day Years [...] Upcoming Encounters Date Type Department Care Team ([facility] Contact Info) Description 09/09/2024 10:20 AM EDT Office Visit [facility] B[facility] OB [address] [place] [address] Cristine Azul, WOODWORKING MACHINE FEEDER [address] [place] [address] 09/10/2024 9:30 AM EDT Office Visit [facility] IM [address] [place] [address] Lina Charles, WOODWORKING MACHINE FEEDER [address] [place] [address] 08/19/2025 11:00 AM EDT Office Visit [facility] BCP OB [address] [facility] [place] [address] Sebastian Montiel, [address] [facility] [place] [address] documented as of this encounter Procedures Procedure Name Priority Date/Time Associated Diagnosis Comments PAP SMEAR Routine 08/12/2024 12:00 AM EDT documented in this encounter Results * Pap Smear (08/12/2024 12:00 AM EDT) Swab Cervical swab / Unknown us Cristine Azul WOODWORKING MACHINE FEEDER LAB CYTOLOGY ORDERABLES Final Result Performing Organization Address City/State/[facility] Co de Phone Number EXTERNAL LAB documented in this encounter Visit Diagnoses Not on filedocumented in this encounter Additional Health Concerns Assessment Noted Time PHQ-9 Depression Total Score: 5 06/09/19 25 8:00 AM EDT documented as of this encounter Care Teams Green Jobs Trainer Relationship Specialty Start Date End Date Bee Moya MD [address] [place] [place] [address] PCP - General Internal Medicine 06/26/22 Bee Moya MD [address] [place] [place] [address] PCP - Aetna 10/19/21 Dr. Ledezma Referring Physician Oncology 08/08/23 Dr. Elliott Referring Physician Cardiology 08/08/23 Dr. Clemons Referring Physician Rheumatology 08/08/23 Dr. Becerril Referring Physician Pulmonary Disease 08/08/23 Dr. Franco Referring Physician Otolaryngology 08/08/23 Emely Bonilla Referring Physician Palliative Medicine 08/08/23 documented as of this encounter
--- OUTSIDE RECORDS SUMMARY | 2024-08-24 11:35 | XMS_ITS | Encounter Summary ---
Author Organization [facility] Address [address] [facility] [place] [address] Care Team Providers Care Deployment Manager Name Role Phone Bee Moya MD Primary Care Provider [phone] Bee Moya MD Unavailable [phone] Encounter Details Date Type Department Care Team [...] EDT Office Visit [facility] [address] [facility] [address] Cristine Azul NP [address] [place] [address] 09/10/2024 9:30 AM EDT Office Visit [facility] IM [address] [place] [address] Lina Charles, CLINICAL RESEARCH MANAGEMENT ASSOCIATE [address] [place] [address] 08/19/2025 11:00 AM EDT Office Visit [facility] BCP OB [address] [facility] [place] [address] Sebastian Montiel, DO [address] [facility] [place] [address] documented as of this encounter Procedures Procedure [...] tissues are unremarkable. IMPRESSION: 1. Minimal osteoarthritis Drywall Boardhanger: PSCB Transcribe Date/Time: Oct 09 2023 2:39P Dictated by : SHANNEN HILLIARD MD This examination was interpreted and the report reviewed and electronically signed by: SHANNEN HILLIARD MD on Oct 09 2023 2:40PM EST [id number]^AGFA_IDC^SI^ACN Procedure Note Radiology, Radiologist, - 10/09/2023 * [...] tissues are unremarkable. IMPRESSION: 1. Minimal osteoarthritis Drywall Boardhanger: PSCEdwin Transcribe Date/Time: Oct 09 2023 2:39P Dictated by : SHANNEN HILLIARD MD This examination was interpreted and the report reviewed and electronically signed by: SHANNEN HILLIARD MD on Oct 09 2023 2:40PM EST [id number]^AGFA_IDC^SI^ACN us Generic External Data Provider [facility] Final Result documented in this encounter Visit Diagnoses Not on filedocumented in this encounter Additional Health Concerns Assessment Noted Time PHQ-9 Depression Total Score: 2 08/26/19 24 9:00 AM EDT documented as of this encounter Care Teams Deployment Manager Relationship Specialty Start Date End Date Bee Moya MD [address] [facility] [facility] [place] [address] PCP - General Internal Medicine 06/26/22 Bee Moya MD [address] [place] [address] PCP - Aetna 10/19/21 Dr. Ledezma Referring Physician Oncology 08/08/23 Dr. Elliott Referring Physician Cardiology 08/08/23 Dr. Clemons Referring Physician Rheumatology 08/08/23 Dr. Becerril Referring Physician Pulmonary Disease 08/08/23 Dr. Franco Referring Physician Otolaryngology 08/08/23 Emely Bonilla Referring Physician Palliative Medicine 08/08/23 documented as of this encounter
--- OUTSIDE RECORDS SUMMARY | 2024-08-24 11:35 | XMS_ITS | Encounter Summary ---
Author Organization [facility] Address [address] [facility] [place] [address] Care Team Providers Care Monument Erector Name Role Phone Bee Moya MD Primary Care Provider [phone] Bee Moya MD Unavailable [phone] Encounter Details Date Type Department Care Team (Late st Contact Info) Description 12/04/2022 Abstract [facility] LPS [address] [place] [address] Bee Moya MD [address] [place] [address] Social History Tobacco Use Types [...] Office Visit [facility] BCP OB [address] [place] [address] Cristine Azul, EXECUTIVE CHEF ASSISTANT [address] [place] [address] 09/10/2024 9:30 AM EDT Office Visit [facility] IM [address] [place] [address] Lina Charles, EXECUTIVE CHEF ASSISTANT [address] [place] [address] 08/19/2025 11:00 AM EDT Office Visit [facility] BCP OB [address] [place] [address] Sebastian Montiel DO [address] [place] [address] documented as of this encounter Visit Diagnoses Not on filedocumented in this encounter Care Teams Monument Erector Relationship Specialty Start Date End Date Bee Moya MD [address] [place] [address] PCP - General Internal Medicine 06/26/22 Bee Moya MD [address] [place] [address] PCP - Aetna 10/19/21 Dr. Ledezma Referring Physician Oncology 08/08/23 Dr. Elliott Referring Physician Cardiology 08/08/23 Dr. Clemons Referring Physician Rheumatology 08/08/23 Dr. Becerril Referring Physician Pulmonary Disease 08/08/23 Dr. Franco Referring Physician Otolaryngology 08/08/23 Emely Bonilla Referring Physician Palliative Medicine 08/08/23 documented as of this encounter
--- OUTSIDE RECORDS SUMMARY | 2024-08-24 11:35 | XMS_ITS | Encounter Summary ---
Author Organization [facility] Address [address] [facility] [place] [address] Care Team Providers Care Chip Applying Machine Tender Name Role Phone Bee Moya MD Primary Care Provider [phone] Bee Moya MD Unavailable [phone] Encounter Details Date Type Department Care [...] Upcoming Encounters Date Type Department Care Team ([facility] Contact Info) Description 09/09/2024 10:20 AM EDT Office Visit [facility] OB [address] [facility] [place] [address] Cristine Azul NP [address] [place] [address] 09/10/2024 9:30 AM EDT Office Visit [facility] IM [address] [place] [address] Lina Charles, HIGH SCHOOL SCIENCE TEACHER [address] [place] [address] 08/19/2025 11:00 AM EDT Office Visit [facility] BCP OB [address] [facility] [place] [address] Sebastian Montiel, DO [address] [facility] [place] [address] documented as of this encounter Procedures Procedure [...] * Uptake Time: 44 minutes * Radiopharmaceutical: P84-Agcyzjnhbaykveqpma (FDG) COMPARISON: 05/20/2023 CORRELATION: Outside CT chest [...] any questions regarding this interpretation, please call [phone]. If you are unable to reach us at the number above, please feel free to contact [facility] at [phone]. [id number]^AGFA_IDC^SI^ACN Procedure Note Radiology, Radiologist, - 12/15/2023 * [...] * Uptake Time: 44 minutes * Radiopharmaceutical: J98-Rsavgecfueuzjvattl (FDG) COMPARISON: 05/20/2023 CORRELATION: Outside CT chest [...] any questions regarding this interpretation, please call [phone]. If you are unable to reach us at the number above, please feel free to contact [facility] at [phone]. [id number]^AGFA_IDC^SI^ACN us Generic External Data Provider [facility] Final Result documented in this encounter Visit Diagnoses Not on filedocumented in this encounter Additional Health Concerns Assessment Noted Time PHQ-9 Depression Total Score: 5 11/28/19 24 8:00 AM EDT documented as of this encounter Care Teams Chip Applying Machine Tender Relationship Specialty Start Date End Date Bee Moya MD [address] [place] [address] PCP - General Internal Medicine 06/26/22 Bee Moya MD [address] [place] [address] PCP - Aetna 10/19/21 Dr. Ledezma Referring Physician Oncology 08/08/23 Dr. Elliott Referring Physician Cardiology 08/08/23 Dr. Clemons Referring Physician Rheumatology 08/08/23 Dr. Becerril Referring Physician Pulmonary Disease 08/08/23 Dr. Franco Referring Physician Otolaryngology 08/08/23 Emely Bonilla Referring Physician Palliative Medicine 08/08/23 documented as of this encounter
--- OUTSIDE RECORDS SUMMARY | 2024-08-24 11:35 | XMS_ITS | Encounter Summary ---
Author Organization [facility] Address [address] [facility] [place] [address] Care Team Providers Care Egg Setter Name Role Phone Bee Moya MD Primary Care Provider [phone] Bee Moya MD Unavailable [phone] Encounter Details Date Type Department Care Team [...] EDT Office Visit [facility] IM [address] [place] [address] Lina Charles, OVERNIGHT CAREGIVER [address] [place] [address] 08/19/2025 11:00 AM EDT Office Visit [facility] BCP OB [address] [facility] [address] Sebastian Montiel, DO [address] [facility] [address] documented as of this encounter Procedures Procedure [...] * Radiopharmaceutical Dose: 12.1 mCi * Radiopharmaceutical: L17-Rdjvzshmkqmvrexefn (FDG) COMPARISON: FDG PET/CT dated 01/28/2023. CORRELATION: None. RESULT: REFERENCES: SUV reference values: * Blood pool (descending aorta) activity: SUVmax 2.8 * Background liver activity: SUVmax 3.6; SUVmean 2.7 Community Development Worker (topogram) images: No additional findings. Notes [...] any questions regarding this interpretation, please call [phone]. If you are unable to reach us at the number above, please feel free to contact [facility] at [phone]. [id number]^AGFA_IDC^SI^ACN Procedure Note Radiology, Radiologist, - 05/21/2023 * [...] * Radiopharmaceutical Dose: 12.1 mCi * Radiopharmaceutical: T40-Nhqpiwubymmlzdours (FDG) COMPARISON: FDG PET/CT dated 01/28/2023. CORRELATION: None. RESULT: REFERENCES: SUV reference values: * Blood pool (descending aorta) activity: SUVmax 2.8 * Background liver activity: SUVmax 3.6; SUVmean 2.7 Community Development Worker (topogram) images: No additional findings. Notes [...] any questions regarding this interpretation, please call [phone]. If you are unable to reach us at the number above, please feel free to contact [facility] at [phone]. [id number]^AGFA_IDC^SI^ACN us Generic External Data Provider [facility] Final Result documented in this encounter Visit Diagnoses Not on filedocumented in this encounter Care Teams Egg Setter Relationship Specialty Start Date End Date Bee Moya MD [address] [facility] [place] [address] PCP - General Internal Medicine 06/26/22 Bee Moya MD [address] [place] [address] PCP - Aetna 10/19/21 Dr. Ledezma Referring Physician Oncology 08/08/23 Dr. Elliott Referring Physician Cardiology 08/08/23 Dr. Clemons Referring Physician Rheumatology 08/08/23 Dr. Becerril Referring Physician Pulmonary Disease 08/08/23 Dr. Franco Referring Physician Otolaryngology 08/08/23 Emely Bonilla Referring Physician Palliative Medicine 08/08/23 documented as of this encounter
--- OUTSIDE RECORDS SUMMARY | 2024-08-24 11:35 | XMS_ITS | Encounter Summary ---
Author Organization [facility] Address [address] [facility] [place] [address] Care Team Providers Care Overhead Line Worker Name Role Phone Bee Moya MD Primary Care Provider [phone] Bee Moya MD Unavailable [phone] Encounter Details Date Type Department Care [...] EDT Office Visit [facility] BCP OB [address] [facility] [place] [address] Cristine Azul NP [address] [place] [address] 09/10/2024 9:30 AM EDT Office Visit [facility] IM [address] [place] [address] Lina Charles, ASSISTANT MANAGER TRAINEE [address] [place] [address] 08/19/2025 11:00 AM EDT Office Visit [facility] BCP OB [address] [facility] [place] [address] Sebastian Montiel, DO [address] [facility] [place] [address] documented as of this encounter Procedures Procedure [...] any questions regarding this interpretation, please call [phone]. If you are unable to reach us at the number above, please feel free to contact [facility] at [phone]. [id number]^AGFA_IDC^SI^ACN Procedure Note Radiology, Radiologist, - 01/29/2023 * [...] any questions regarding this interpretation, please call [phone]. If you are unable to reach us at the number above, please feel free to contact [facility] at [phone]. [id number]^AGFA_IDC^SI^ACN us Generic External Data Provider [facility] Final Result documented in this encounter Visit Diagnoses Not on filedocumented in this encounter Care Teams Overhead Line Worker Relationship Specialty Start Date End Date Bee Moya MD [address] [facility] [place] [address] PCP - General Internal Medicine 06/26/22 Bee Moya MD [address] [place] [address] PCP - Aetna 10/19/21 Dr. Ledezma Referring Physician Oncology 08/08/23 Dr. Elliott Referring Physician Cardiology 08/08/23 Dr. Clemons Referring Physician Rheumatology 08/08/23 Dr. Becerril Referring Physician Pulmonary Disease 08/08/23 Dr. Franco Referring Physician Otolaryngology 08/08/23 Emely Bonilla Referring Physician Palliative Medicine 08/08/23 documented as of this encounter
--- OUTSIDE RECORDS SUMMARY | 2024-08-24 11:35 | XMS_ITS | Encounter Summary ---
Author Organization [facility] Address [address] [facility] [place] [address] Care Team Providers Care Bean Dumper Name Role Phone Bee Moya MD Primary Care Provider [phone] Bee Moya MD Unavailable [phone] Encounter Details Date Type Department Care [...] Office Visit [facility] BCP OB [address] [facility] [address] Cristine Azul NP [address] [place] [address] 09/10/2024 9:30 AM EDT Office Visit [facility] IM [address] [place] [address] Lina Charles, BLAST FURNACE KEEPER [address] [place] [address] 08/19/2025 11:00 AM EDT Office Visit [facility] BCP OB [address] [facility] [place] [address] Sebastian Montiel, DO [address] [facility] [place] [address] documented as of this encounter Procedures Procedure [...] pleural effusion and small LEFT pleural effusion. Manager Practice: [facility] Transcribe Date/Time: Jan 05 2024 10:39P Dictated by : FIORELLA RIVERA DO This examination was interpreted and the report reviewed and electronically signed by: FIORELLA RIVERA DO on Jan 05 2024 10:40PM EST [id number]^AGFA_IDC^SI^ACN Procedure Note Radiology, Radiologist, MD - 01/05/2024 [...] pleural effusion and small LEFT pleural effusion. Manager Practice: [facility] Transcribe Date/Time: Jan 05 2024 10:39P Dictated by : FIORELLA RIVERA DO This examination was interpreted and the report reviewed and electronically signed by: FIORELLA RIVERA DO on Jan 05 2024 10:40PM EST [id number]^AGFA_IDC^SI^ACN us Generic External Data Provider [facility] Final Result documented in this encounter Visit Diagnoses Not on filedocumented in this encounter Additional Health Concerns Assessment Noted Time PHQ-9 Depression Total Score: 5 11/28/19 24 8:00 AM EDT documented as of this encounter Care Teams Bean Dumper Relationship Specialty Start Date End Date Bee Moya MD [address] [facility] [place] [address] PCP - General Internal Medicine 06/26/22 Bee Moya MD [address] [facility] [place] [address] PCP - Aetna 10/19/21 Dr. Ledezma Referring Physician Oncology 08/08/23 Dr. Elliott Referring Physician Cardiology 08/08/23 Dr. Clemons Referring Physician Rheumatology 08/08/23 Dr. Becerril Referring Physician Pulmonary Disease 08/08/23 Dr. Franco Referring Physician Otolaryngology 08/08/23 Emely [place] Referring Physician Palliative Medicine 08/08/23 documented as of this encounter
--- OUTSIDE RECORDS SUMMARY | 2024-08-24 11:36 | XMS_ITS ---
Author Organization [facility] Address [address] [place] [address] Care Team Providers Care Shank Burnisher Name Role Phone Bee Moya MD Primary Care Provider [phone] Active Problems Problem Noted Date Diagnosed Date [...] CO 7.48 L/min based on RHC at [facility] 02/2024 multifactorial in the setting of history of PE, mediastinal radiation and post radiation fibrosis, bronchiectasis Assessment & Plan (07/08/2024 12:10 PM EDT): Mild pulmonary hypertension mPAP 22, PVR 1.74 morillo, pcwp 4, CO 7.48 L/min based on RHC at [facility] 02/2024 multifactorial in the setting of history of PE, mediastinal radiation and post radiation fibrosis, bronchiectasis Assessment & Plan (07/07/2024 4:34 PM EDT): Mild pulmonary hypertension mPAP 22, PVR 1.74 morillo, pcwp 4, CO 7.48 L/min based on RHC at [facility] 02/2024 multifactorial in the setting of history [...] (07/20/2024): Added automatically from request for surgery [id number] Asymptomatic premature menopause 09/05/2016 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 Protocol(s): IRB #3422 BU/Cy/SENIOR FUNCTIONAL ANALYST Preparative regimen: Bu/Cy/SENIOR FUNCTIONAL ANALYST Mobilization regimen: G+P Stem cell source: Apheresis [...]
--- OUTSIDE RECORDS SUMMARY | 2024-08-24 11:36 | XMS_ITS | Clinical Summary ---
Author Organization [facility] Address [address] [place] [address] Phone Care Team Providers Care Netbackup Administrator Name Role Phone Bee Moya MD Primary Care Provider [phone] Social History Tobacco Use Types Packs/Day Years [...] 05/31/2021 05/30/2020, 02/26/2019 Mammogram 2022 Influenza Vaccine (#1) 2024 Welcome to Medicare Visit Discontinued 2020, 02/26/2019 HIB Vaccines Aged Out No longer eligi ble based on patient's age to complete this topic HPV Vaccines (No Doses Required) Completed Hepatitis A Vaccines Aged Out No long [...] patient's age to complete this topic Insurance AET MEDICARE ASSURE Care Teams Netbackup Administrator Relationship Specialty Start Date End Date Bee Moya MD [address] [facility] [place] [address] PCP - General 08/24/19
[2024-08-24 12:59] LABS: Alanine Aminotransferase 63 U/L (14-59); Albumin Globulin Ratio 1.1; Albumin Level 4.0 g/dL (3.4-5.0); Alkaline Phosphatase 69 U/L (46-116); Anion Gap 11.0; Aspartate Amino Transferase 45 U/L (15-37); Blood Urea Nitrogen 12.0 mg/dL (7.0-18.0); Calcium 9.6 mg/dL (8.5-10.1); Carbon Dioxide 30.6 mmol/L (21.0-32.0); Chloride 102 mmol/L (98-107); Cholesterol 142 mg/dL (<=200); Estimated GFR (African America >60 (>=60 mL/min/1.73m^2); Estimated GFR (Non-African Ame >60 (>=60 mL/min/1.73m^2); Globulin 3.5 g/dL; Glucose 101 mg/dL (74-106); HDL Cholesterol 55 mg/dL (40-60); Potassium 4.6 mmol/L (3.5-5.1); Sodium 139 mmol/L (136-145); Total Protein 7.5 g/dL (6.4-8.2); Triglycerides 96 mg/dL (<=150); VLDL CHOLESTEROL 19.2 mg/dL
== END 2024-08-24 11:31 | disposition home or self-care (01) ==
PROVIDERS: PCP Internal Medicine; Visit Provider Internal Medicine Interventional Cardiology
DX: I25.10 Atherosclerotic heart disease of native coronary artery without angina pectoris (principal); E78.2 Mixed hyperlipidemia; I50.22 Chronic systolic (congestive) heart failure; E34.9 Endocrine disorder, unspecified
CPT/HCPCS: 36415; 80048; 80061; 80076; 82530; 82627; 82652; 82670; 82679; 82728; 82947; 83525; 84144; 84260; 84270; 84402; 84403; 84432; 84436; 84439; 84443; 84481; 84482; 84681; 86376; 86800

== ENCOUNTER 2024-10-26 12:56 | Outpatient (OUT) | payer MEDICARE, MEDICAID, SELFPAY ==
--- OUTSIDE RECORDS SUMMARY | 2024-10-26 12:59 | XMS_ITS | Encounter Summary ---
Author Organization [facility] Address [address] [place] [address] Care Team Providers Care Electronics Maintenance Technician Name Role Phone Bee Moya MD Primary Care Provider [phone] Bee Moya MD Unavailable [phone] Encounter Details Date Type Department Care Team ([facility] Contact Info) Description 07/17/2022 Clinisync Result Encounter [...] Upcoming Encounters Date Type Department Care Team ([facility] Contact Info) Description 03/17/2025 11:00 AM EST Office Visit [facility] [place] [facility] [address] [facility] [place] [address] Bee Moya MD [address] [place] [address] 08/19/2025 11:00 AM EDT Office Visit JOSSELYN [facility] [address] [facility] [place] [address] Sebastian Montiel DO [address] [facility] [place] [address] documented as of this encounter Procedures Procedure [...] DATE OF EXAM: Jul 17 2022 1:18PM [facility] 0541 - CT CHEST WO IVCON / [...] fatty infiltration. No evidence of adrenal mass.. Public Health Teacher (topogram) images: No additional findings. IMPRESSION: 1. [...] Postradiation changes in the bilateral lung rodriguez. Welder And Fitter: PSCB Transcribe Date/Time: Jul 18 2022 8:19A Dictated by : YOGESH DAVIS MD This examination was interpreted and the report reviewed and electronically signed by: YOGESH DAVIS MD on Jul 18 2022 8:58AM EST [id number]^AGFA_IDC^SI^ACN * * *Final Report* * * DATE OF EXAM: Jul 17 2022 1:18PM [place] [address] - CT CHEST WO IVCON / PROCEDURE [...] fatty infiltration. No evidence of adrenal mass.. Public Health Teacher (topogram) images: No additional findings. IMPRESSION: 1. [...] Postradiation changes in the bilateral lung rodriguez. Welder And Fitter: DEDE Transcribe Date/Time: Jul 18 2022 8:19A Dictated by : YOGESH DAVIS MD This examination was interpreted and the report reviewed and electronically signed by: YOGESH DAVIS MD on Jul 18 2022 8:58AM EST [id number]^AGFA_IDC^SI^ACN * * *Final Report* * * DATE OF EXAM: Jul 17 2022 1:18PM [facility] 0541 - CT CHEST WO IVCON / [...] fatty infiltration. No evidence of adrenal mass.. Public Health Teacher (topogram) images: No additional findings. IMPRESSION: 1. [...] Postradiation changes in the bilateral lung rodriguez. Welder And Fitter: DEDE Transcribe Date/Time: Jul 18 2022 8:19A Dictated by : YOGESH DAVIS MD This examination was interpreted and the report reviewed and electronically signed by: YOGESH DAVIS MD on Jul 18 2022 8:58AM EST [id number]^AGFA_IDC^SI^ACN Procedure Note Radiology, Radiologist, - 07/23/2022 * * *Final Report* * * DATE OF EXAM: Jul 17 2022 1:18PM [facility] 0541 - CT CHEST WO IVCON / [...] fatty infiltration. No evidence of adrenal mass.. Public Health Teacher (topogram) images: No additional findings. IMPRESSION: 1. [...] Postradiation changes in the bilateral lung rodriguez. Welder And Fitter: DEDE Transcribe Date/Time: Jul 18 2022 8:19A Dictated by : YOGESH DAVIS MD This examination was interpreted and the report reviewed and electronically signed by: YOGESH DAVIS MD on Jul 18 2022 8:58AM EST [id number]^AGFA_IDC^SI^ACN * * *Final Report* * * DATE OF EXAM: Jul 17 2022 1:18PM [facility] 0541 - CT CHEST WO IVCON / [...] fatty infiltration. No evidence of adrenal mass.. Public Health Teacher (topogram) images: No additional findings. IMPRESSION: 1. [...] Postradiation changes in the bilateral lung rodriguez. Welder And Fitter: DEDE Transcribe Date/Time: Jul 18 2022 8:19A Dictated by : YOGESH DAVIS MD This examination was interpreted and the report reviewed and electronically signed by: YOGESH DAVIS MD on Jul 18 2022 8:58AM EST [id number]^AGFA_IDC^SI^ACN * * *Final Report* * * DATE OF EXAM: Jul 17 2022 1:18PM [facility] 0541 - CT CHEST WO IVCON / [...] fatty infiltration. No evidence of adrenal mass.. Public Health Teacher (topogram) images: No additional findings. IMPRESSION: 1. [...] Postradiation changes in the bilateral lung rodriguez. Welder And Fitter: PSCB Transcribe Date/Time: Jul 18 2022 8:19A Dictated by : YOGESH DAVIS MD This examination was interpreted and the report reviewed and electronically signed by: YOGESH DAVIS MD on Jul 18 2022 8:58AM EST [id number]^AGFA_IDC^SI^ACN Bee Moya MD IMG CT PROCEDURES Final Result documented in this encounter Visit Diagnoses Not on filedocumented in this encounter Care Teams Electronics Maintenance Technician Relationship Specialty Start Date End Date Bee Moya MD [address] [place] [address] PCP - General Internal Medicine 06/26/22 Bee Moya MD [address] [place] [address] PCP - [employer] 10/19/21 Dr. Ledezma Referring Physician Oncology 08/08/23 Dr. Elliott Referring Physician Cardiology 08/08/23 Dr. Clemons Referring Physician Rheumatology 08/08/23 Dr. Becerril Referring Physician Pulmonary Disease 08/08/23 Dr. Franco Referring Physician Otolaryngology 08/08/23 Emely Bonilla Referring Physician Palliative Medicine 08/08/23 documented as of this encounter
--- OUTSIDE RECORDS SUMMARY | 2024-10-26 12:59 | XMS_ITS | Encounter Summary ---
Author Organization [facility] Address [address] [place] [address] Care Team Providers Care Olive Packer Name Role Phone Bee Moya MD Primary Care Provider [phone] Bee Moya MD Unavailable [phone] Encounter Details Date Type Department Care [...] Upcoming Encounters Date Type Department Care Team ([facility] Contact Info) Description 03/17/2025 11:00 AM EST Office Visit [facility] [place] [facility] [address] [place] [address] Bee Moay MD [address] [place] [address] 08/19/2025 11:00 AM EDT Office Visit [facility]N [facility] [address] [facility] [place] [address] Sebastian Montiel DO [address] [place] [address] documented as of this encounter Procedures Procedure [...] DATE OF EXAM: Jan 15 2024 11:18AM [facility] 0032 - [place] LUNG VENT / PERF [...] PE protocol chest CT may be performed. Metal Spinner: PSCB Transcribe Date/Time: Jan 15 2024 11:50A Dictated by : CAIO HINKLE MD This examination was interpreted and the report reviewed and electronically signed by: CAIO HINKLE MD on Jan 15 2024 11:53AM EST [id number]^AGFA_IDC^SI^ACN Procedure Note Radiology, Radiologist, - 01/15/2024 * * *Final Report* * * DATE OF EXAM: Jan 15 2024 11:18AM [facility] 0032 - [place] LUNG VENT / PERF [...] PE protocol chest CT may be performed. Metal Spinner: [facility] Transcribe Date/Time: Jan 15 2024 11:50A Dictated by : CAIO HINKLE MD This examination was interpreted and the report reviewed and electronically signed by: CAIO HINKLE MD on Jan 15 2024 11:53AM EST [id number]^AGFA_IDC^SI^ACN Generic External Data Provider [facility] Final Result documented in this encounter Visit Diagnoses Not on filedocumented in this encounter Additional Health Concerns Assessment Noted Time PHQ-9 Depression Total Score: 5 11/28/19 24 8:00 AM EDT documented as of this encounter Care Teams Olive Packer Relationship Specialty Start Date End Date Bee Moya MD [address] [place] [address] PCP - General Internal Medicine 06/26/22 Bee Moya MD [address] [place] [address] PCP - [employer] 10/19/21 Dr. Ledezma Referring Physician Oncology 08/08/23 Dr. Elliott Referring Physician Cardiology 08/08/23 Dr. Clemons Referring Physician Rheumatology 08/08/23 Dr. Becerril Referring Physician Pulmonary Disease 08/08/23 Dr. Franco Referring Physician Otolaryngology 08/08/23 Emely Bonilla Referring Physician Palliative Medicine 08/08/23 documented as of this encounter
--- OUTSIDE RECORDS SUMMARY | 2024-10-26 12:59 | XMS_ITS | Encounter Summary ---
Author Organization [facility] Address [address] [facility] [place] [address] Care Team Providers Care Capsule Filling Machine Operator Name Role Phone Bee Moya MD Primary Care Provider Bee Moya MD Unavailable [phone] Encounter Details Date Type Department Care Team (Late st Contact Info) Description 12/04/2022 Abstract [facility] [place] [facility] [address] [place] [address] Bee Moya MD [address] [facility] [place] [address] Social History Tobacco Use Types [...] 12/04/2022 2:31 PM EDT Khalif Travis MA Patient Health Questionnaire -2 Score 0 12/04/2022 2:31 PM EDT Khalif Travis MA documented as of this encounter Plan of Treatment Upcoming Encounters Date Type Department Care Team (Late st Contact Info) Description 03/17/2025 11:00 AM EST Office Visit [facility] [place] [facility] [address] [place] [address] Bee Moya MD [address] [facility] [place] [place] [address] 08/19/2025 11:00 AM EDT Office Visit JOSSELYN [facility] [address] [place] [phone] Sebastian Montiel DO [address] [facility] [place] [address] documented as of this encounter Visit Diagnoses Not on filedocumented in this encounter Care Teams Capsule Filling Machine Operator Relationship Specialty Start Date End Date Bee Moya MD [address] [facility] [place] [address] PCP - General Internal Medicine 06/26/22 Bee Moya MD [address] [facility] [place] [place] [address] PCP - [employer] 10/19/21 Dr. Ledezma Referring Physician Oncology 08/08/23 Dr. Elliott Referring Physician Cardiology 08/08/23 Dr. Clemons Referring Physician Rheumatology 08/08/23 Dr. Becerril Referring Physician Pulmonary Disease 08/08/23 Dr. Franco Referring Physician Otolaryngology 08/08/23 Emely Bonilla Referring Physician Palliative Medicine 08/08/23 documented as of this encounter
--- OUTSIDE RECORDS SUMMARY | 2024-10-26 12:59 | XMS_ITS | Encounter Summary ---
Author Organization [facility] Address [address] [place] [address] Care Team Providers Care Supervisor Tower Name Role Phone Bee Moya MD Primary Care Provider [phone] Bee Moya MD Unavailable [phone] Encounter Details Date Type Department Care Team [...] Upcoming Encounters Date Type Department Care Team ([facility] Contact Info) Description 03/17/2025 11:00 AM EST Office Visit [facility] [place] [facility] [address] [place] [phone] Bee Moya MD [address] [facility] [place] [address] 08/19/2025 11:00 AM EDT Office Visit JOSSELYN [facility] [address] [facility] [place] [address] Sebastian Montiel DO [address] [place] [address] documented as of this encounter Procedures Procedure [...] symptoms. Other Findings: None. Staff Physician: Alexsander Gregorio M.D. was present for the critical portions of the procedure and was immediately available throughout the remainder of the procedure. IMPRESSION: NORMAL ESOPHAGRAM. Director Of Enterprise Strategy: PSCB Transcribe Date/Time: Jul 19 2023 2:16P Dictated by : ADDIS SUTTON MD This examination was interpreted and the report reviewed and electronically signed by: ALEXSANDER GREGORIO MD on Jul 19 2023 2:33PM EST [id number]^AGFA_IDC^SI^ACN Procedure Note Radiology, Radiologist, - 07/19/2023 * [...] symptoms. Other Findings: None. Staff Physician: Alexsander Gregorio M.D. was present for the critical portions of the procedure and was immediately available throughout the remainder of the procedure. IMPRESSION: NORMAL ESOPHAGRAM. Director Of Enterprise Strategy: PSCB Transcribe Date/Time: Jul 19 2023 2:16P Dictated by : ADDIS SUTTON MD This examination was interpreted and the report reviewed and electronically signed by: ALEXSANDER GREGORIO MD on Jul 19 2023 2:33PM EST [id number]^AGFA_IDC^SI^ACN us Generic External Data Provider IMG XR PROCEDURES Final Result documented in this encounter Visit Diagnoses Not on filedocumented in this encounter Care Teams Supervisor Tower Relationship Specialty Start Date End Date Bee Moya MD [address] [place] [address] PCP - General Internal Medicine 06/26/22 Bee Moya MD [address] [place] [address] PCP - [employer] 10/19/21 Dr. Ledezma Referring Physician Oncology 08/08/23 Dr. Elliott Referring Physician Cardiology 08/08/23 Dr. Clemons Referring Physician Rheumatology 08/08/23 Dr. Becerril Referring Physician Pulmonary Disease 08/08/23 Dr. Franco Referring Physician Otolaryngology 08/08/23 Emely Bonilla Referring Physician Palliative Medicine 08/08/23 documented as of this encounter
--- OUTSIDE RECORDS SUMMARY | 2024-10-26 12:59 | XMS_ITS | Encounter Summary ---
Author Organization [facility] Address [address] [place] [address] Care Team Providers Care Management Lead Name Role Phone Bee Moya MD Primary Care Provider [phone] Bee Moya MD Unavailable [phone] Encounter Details Date Type Department Care [...] Encounters Date Type Department Care Team ([facility] Contact Info) Description 03/17/2025 11:00 AM EST Office Visit [facility] [place] [facility] [address] [place] [address] Bee Moya MD [address] [place] [address] 08/19/2025 11:00 AM EDT Office Visit [facility]N [facility] [address] [facility] [place] [place] [address] Sebastian Montiel DO [address] [place] [address] documented as of this encounter Procedures Procedure [...] any questions regarding this interpretation, please call [phone]. If you are unable to reach us at the number above, please feel free to contact [facility] at [phone]. [id number]^AGFA_IDC^SI^ACN Procedure Note Radiology, Radiologist, MD - 01/29/2023 * * *Final Report* * [...] any questions regarding this interpretation, please call [phone]. If you are unable to reach us at the number above, please feel free to contact [facility] at [phone]. [id number]^AGFA_IDC^SI^ACN us Generic External Data Provider [facility] Final Result documented in this encounter Visit Diagnoses Not on filedocumented in this encounter Care Teams Management Lead Relationship Specialty Start Date End Date Bee Moya MD [address] [facility] [address] [place] [address] PCP - General Internal Medicine 06/26/22 Bee Moya MD [address] [place] [address] PCP - [employer] 10/19/21 Dr. Ledezma Referring Physician Oncology 08/08/23 Dr. Elliott Referring Physician Cardiology 08/08/23 Dr. Clemons Referring Physician Rheumatology 08/08/23 Dr. Becerril Referring Physician Pulmonary Disease 08/08/23 Dr. Franco Referring Physician Otolaryngology 08/08/23 Emely Bonilla Referring Physician Palliative Medicine 08/08/23 documented as of this encounter
--- OUTSIDE RECORDS SUMMARY | 2024-10-26 12:59 | XMS_ITS | Encounter Summary ---
Author Organization [facility] Address [address] [place] [address] Care Team Providers Care Relief Captain Name Role Phone Bee Moya MD Primary Care Provider [phone] Bee Moya MD Unavailable [phone] Encounter Details Date Type Department Care [...] Office Visit [facility] [place] [facility] [address] [place] [address] Bee Moya MD [address] [place] [address] 08/19/2025 11:00 AM EDT Office Visit JOSSELYN [facility] [address] [place] [address] Sebastian Montiel DO [address] [place] [address] documented as of this encounter Procedures Procedure [...] PRESENT IN THE NOTES COMPONENT OF EPIC Commodity Supervisor: PSCB Transcribe Date/Time: Jul 10 2023 3:06P Dictated by : ERIC GREENFIELD MD This examination was interpreted and the report reviewed and electronically signed by: ERIC GREENFIELD MD on Jul 10 2023 3:06PM EST [id number]^AGFA_IDC^SI^ACN Procedure Note Radiology, Radiologist, - 07/10/2023 * [...] PRESENT IN THE NOTES COMPONENT OF EPIC Commodity Supervisor: DEDE Transcribe Date/Time: Jul 10 2023 3:06P Dictated by : ERIC GREENFIELD MD This examination was interpreted and the report reviewed and electronically signed by: ERIC GREENFIELD MD on Jul 10 2023 3:06PM EST [id number]^AGFA_IDC^SI^ACN Generic External Data Provider [facility] Final Result documented in this encounter Visit Diagnoses Not on filedocumented in this encounter Care Teams Relief Captain Relationship Specialty Start Date End Date Bee Moya MD [address] [place] [address] PCP - General Internal Medicine 06/26/22 Bee Moya MD [address] [facility] [place] [address] PCP - [employer]et[employer] 10/19/21 Dr. Ledezma Referring Physician Oncology 08/08/23 Dr. Elliott Referring Physician Cardiology 08/08/23 Dr. Clemons Referring Physician Rheumatology 08/08/23 Dr. Becerril Referring Physician Pulmonary Disease 08/08/23 Dr. Franco Referring Physician Otolaryngology 08/08/23 Emely Bonilla Referring Physician Palliative Medicine 08/08/23 documented as of this encounter
--- OUTSIDE RECORDS SUMMARY | 2024-10-26 12:59 | XMS_ITS | Encounter Summary ---
Author Organization [facility] Address [address] [place] [address] Care Team Providers Care Heating And Ventilating Worker Name Role Phone Bee Moya MD Primary Care Provider [phone] Bee Moya MD Unavailable [phone] Encounter Details Date Type Department Care Team [...] Department Care Team (Late Contact Info) Description 03/17/2025 11:00 AM EST Office Visit [facility] [place] [facility] [address] [place] [address] Bee Moya MD [address] [facility] [place] [address] 08/19/2025 11:00 AM EDT Office Visit JOSSELYN [facility]AP[facility] [address] [facility] [place] [address] Sebastian Montiel DO [address] [place] [address] documented as of this encounter Procedures Procedure [...] Postradiation changes in the left lung, stable. Front End Web Developer: PSCB Transcribe Date/Time: May 31 2023 3:49P Dictated by : YOGESH DAVIS MD This examination was interpreted and the report reviewed and electronically signed by: YOGESH DAVIS MD on May 31 2023 3:53PM EST [id number]^AGFA_IDC^SI^ACN Procedure Note Radiology, Radiologist, - 05/31/2023 * [...] Postradiation changes in the left lung, stable. Front End Web Developer: PSCB Transcribe Date/Time: May 31 2023 3:49P Dictated by : YOGESH DAVIS MD This examination was interpreted and the report reviewed and electronically signed by: YOGESH DAVIS MD on May 31 2023 3:53PM EST [id number]^AGFA_IDC^SI^ACN Generic External Data Provider [facility] Final Result * [facility] SARS-COV-2,INFLUENZA A/B,RSV RAPID (05/31/2023 3:30 PM EDT) Pathologist [facility] COVID AND INFLUENZA A/B AND RSV NAAT, [...] PM EDT 05/31/2023 10:09 PM EDT Narrative [facility] - 06/01/2023 1:00 AM EDT Original Ordering Provider: ROSALES LUCERO us Generic External Data Provider [facility] F inal Result [facility] [address] [facility] [address] [place] [address] [facility] documented in this encounter Visit Diagnoses Not on filedocumented in this encounter Care Teams Heating And Ventilating Worker Relationship Specialty Start Date End Date Bee Moya MD [address] [facility] [place] [address] PCP - General Internal Medicine 06/26/22 Bee Moya MD [address] [facility] [place] [address] PCP - [employer]et[employer] 10/19/21 Dr. Ledezma Referring Physician Oncology 08/08/23 Dr. Elliott Referring Physician Cardiology 08/08/23 Dr. Clemons Referring Physician Rheumatology 08/08/23 Dr. Becerril Referring Physician Pulmonary Disease 08/08/23 Dr. Franco Referring Physician Otolaryngology 08/08/23 Emely Bonilla Referring Physician Palliative Medicine 08/08/23 documented as of this encounter
--- OUTSIDE RECORDS SUMMARY | 2024-10-26 12:59 | XMS_ITS | Encounter Summary ---
Author Organization [facility] Address [address] [place] [address] Care Team Providers Care Event Host Name Role Phone Bee Moya MD Primary Care Provider [phone] Bee Moya MD Unavailable [phone] Encounter Details Date Type Department Care Team (Late st Contact Info) Description 08/14/2022 Clinisync Result Encounter [facility] External Department Unsolicited Bee Moya MD [address] [place] [address] Social History Tobacco Use Types Packs/Day Years [...] Office Visit [facility] [place] [facility] [address] [facility] [place] [address] Bee Moya MD [address] [facility] [address] [place], [place] [address] 08/19/2025 11:00 AM EDT Office Visit JOSSELYN [facility] [address] [place] [address] Sebastian Montiel DO [address] [place] [place], [place] [address] documented as of this encounter Procedures Procedure [...] any questions regarding this interpretation, please call [phone]. If you are unable to reach us at the number above, please feel free to contact [facility] at [phone]. [id number]^AGFA_IDC^SI^ACN Procedure Note Radiology, Radiologist, - 08/14/2022 * [...] any questions regarding this interpretation, please call [phone]. If you are unable to reach us at the number above, please feel free to contact [facility] at [phone]. [id number]^AGFA_IDC^SI^ACN us Bee Moya MD [facility] Final Result documented in this encounter Visit Diagnoses Not on filedocumented in this encounter Care Teams Event Host Relationship Specialty Start Date End Date Bee Moya MD [address] [place] [address] PCP - General Internal Medicine 06/26/22 Bee Moya MD [address] [place] [place] [address] PCP - [employer] 10/19/21 Dr. Ledezma Referring Physician Oncology 08/08/23 Dr. Elliott Referring Physician Cardiology 08/08/23 Dr. Clemons Referring Physician Rheumatology 08/08/23 Dr. Becerril Referring Physician Pulmonary Disease 08/08/23 Dr. Franco Referring Physician Otolaryngology 08/08/23 Emely Bonilla Referring Physician Palliative Medicine 08/08/23 documented as of this encounter
--- OUTSIDE RECORDS SUMMARY | 2024-10-26 12:59 | XMS_ITS | Encounter Summary ---
Author Organization [facility] Address [address] [place] [address] Care Team Providers Care Senior Boiler Operator Name Role Phone Bee Moya MD Primary Care Provider [phone] Bee Moya MD Unavailable [phone] Encounter Details Date Type Department Care Team (Late Contact Info) Description 08/20/2024 Orders Only [facility] [address] [place] [address] [place] [address] Khoa [facility] [place] Social History Tobacco Use Types Packs/Day Years [...] Upcoming Encounters Date Type Department Care Team ([facility] Contact Info) Description 03/17/2025 11:00 AM EST Office Visit [facility] [place] [facility] [address] [place] [address] Bee Moya MD [address] [facility] [place] [address] 08/19/2025 11:00 AM EDT Office Visit [facility] [address] [place], [place] [address] [address] Sebastian Montiel, DO [address] [facility] [place] [address] documented as of this encounter Procedures Procedure Name Priority Date/Time Associated Diagnosis Comments PAP SMEAR Routine 08/12/2024 12:00 AM EDT documented in this encounter Results * Pap Smear (08/12/2024 12:00 AM EDT) Swab Cervical swab / Unknown us Cristine Azul PROFESSOR OF SPORT MANAGEMENT LAB CYTOLOGY ORDERABLES Final Result EXTERNAL LAB documented in this encounter Visit Diagnoses Not on filedocumented in this encounter Additional Health Concerns Assessment Noted Time PHQ-9 Depression Total Score: 5 06/09/19 25 8:00 AM EDT documented as of this encounter Care Teams Senior Boiler Operator Relationship Specialty Start Date End Date Bee Moya MD [address] [facility] [place] [address] PCP - General Internal Medicine 06/26/22 Bee Moya MD [address] [place] [address] PCP - Aetna 10/19/21 Dr. Ledezma Referring Physician Oncology 08/08/23 Dr. Elliott Referring Physician Cardiology 08/08/23 Dr. Clemons Referring Physician Rheumatology 08/08/23 Dr. Becerril Referring Physician Pulmonary Disease 08/08/23 Dr. Franco Referring Physician Otolaryngology 08/08/23 Emely Bonilla Referring Physician Palliative Medicine 08/08/23 documented as of this encounter
--- OUTSIDE RECORDS SUMMARY | 2024-10-26 12:59 | XMS_ITS | Encounter Summary ---
Author Organization [facility] Address [address] [place] [address] Care Team Providers Care Pipe Cleaner Name Role Phone Bee Moya MD Primary Care Provider [phone] Bee Moya MD Unavailable [phone] Encounter Details Date Type Department Care Team [...] Office Visit [facility] [place] [facility] [address] [place] [address] Bee Moya MD [address] [facility] [place] [address] 08/19/2025 11:00 AM EDT Office Visit [facility] [address] [place] [address] Sebastian Montiel DO [address] [place] [address] documented as of this encounter Procedures Procedure [...] and soft tissues: Unremarkable. IMPRESSION: See result. Rfid Technician: PSCB Transcribe Date/Time: Apr 21 2023 5:48A Dictated by : KOLE KEARNEY MD This examination was interpreted and the report reviewed and electronically signed by: KOLE KEARNEY MD on Apr 21 2023 5:49AM EST [id number]^AGFA_[id number]^SI^ACN Procedure Note Radiology, Radiologist, - 04/21/2023 * [...] and soft tissues: Unremarkable. IMPRESSION: See result. Rfid Technician: PSCB Transcribe Date/Time: Apr 21 2023 5:48A Dictated by : KOLE KEARNEY MD This examination was interpreted and the report reviewed and electronically signed by: KOLE KEARNEY MD on Apr 21 2023 5:49AM EST [id number]^AGFA_IDC^SI^ACN Generic External Data Provider [facility] Final Result documented in this encounter Visit Diagnoses Not on filedocumented in this encounter Care Teams Pipe Cleaner Relationship Specialty Start Date End Date Bee Moya MD [address] [facility] [place] [address] PCP - General Internal Medicine 06/26/22 Bee Moya MD [address] [facility] [place] [address] PCP - Aetna 10/19/21 Dr. Ledezma Referring Physician Oncology 08/08/23 Dr. Elliott Referring Physician Cardiology 08/08/23 Dr. Clemons Referring Physician Rheumatology 08/08/23 Dr. Becerril Referring Physician Pulmonary Disease 08/08/23 Dr. Franco Referring Physician Otolaryngology 08/08/23 Emely Bonilla Referring Physician Palliative Medicine 08/08/23 documented as of this encounter
--- NOTE | 2024-10-26 13:00 | CA_ITS ---
Patient Name: CELSO POTTS MR#: [id number] : 1980 Exam Date: 10/26/2024 Ordering Doctor: DR TREY HDZ M.D. ECHOCARDIOGRAM REPORT PROCEDURE: CA ECHO DOPPLER COMPLETE INDICATIONS: Heart failure with mildly reduced ejection fraction, IN, cardiac stents, hypertension, Hodgkin's Lymphoma -chemo/radiation COMPARISON: None. DESCRIPTION: COMPLETE ECHOCARDIOGRAM Real-time transthoracic echocardiography with 2D, M-mode, spectral and color flow Doppler performed. QUALITY: Technical quality was good. LEFT VENTRICLE: Normal chamber size. Normal left ventricular wall thickness. LV EF: Global left ventricular systolic function is normal; visually estimated ejection fraction is 55%. No significant wall motion abnormalities. DIASTOLIC: Unable to assess diastolic function. ATRIAL SEPTUM: Inadequately seen. LEFT ATRIUM: Normal chamber size. RIGHT ATRIUM: Normal chamber size. RIGHT VENTRICLE: Normal chamber size. Normal right ventricular systolic function. TRICUSPID VALVE: Normal mobility and thickness. No stenosis with mild regurgitation. Doppler studies reveal moderately (45-60) elevated right sided pressures. RVSP 50 mmHg MITRAL VALVE: Normal mobility and thickness. No evidence of mitral valve stenosis. There is no mitral annular calcification. Moderate mitral regurgitation. AORTIC VALVE: Normal trileaflet appearance. No visible sclerosis. Normal leaflet mobility. No evidence of aortic valve stenosis. Mild aortic regurgitation. AORTIC ROOT: Normal diameter and appearance. Ascending aorta is normal in size. PULMONIC VALVE: Normal thickness and mobility. No stenosis. Trivial regurgitation. PERICARDIUM: Trivial pericardial effusion. IVC: Collapses with inspiration. CONCLUSION: 1. Global left ventricular systolic function is normal; visually estimated ejection fraction is 55% 2. Normal right ventricular size and systolic function 3. The left atrium is normal in size 4. Mild tricuspid regurgitation 5. Moderately elevated right ventricular systolic pressure; RVSP 50 mmHg 6. Moderate mitral regurgitation 7. Mild aortic valve regurgitation 8. Trivial pericardial effusion Adult Echocardiography Procedure Report Left Ventricle LVEDD (3.7 - 5.6 cm): 5.32 cm LVESD (2.2 - 4.0 cm): 2.95 cm LVIVS thickness (0.6 - 1.2 cm): 0.71 cm LVPW thickness (0.5 - 1.0 cm): 0.84 cm e': 0.09 m/s E - e': 13.01 LVOT Max Gradient: 2.19 mm[Hg] LVOT Area (cm2): 0.74 m/s Peak Velocity (LVOT): 0.74 m/s LVOT Diameter 2.21 cm Left Ventricular Ejection Fraction: 55.28 % Left Atrium LA Volume Index (2D A2C): 19.18 ml/m2 Left Atrium Systolic Dimension: 3.71 cm Mitral Valve MV E to A Ratio: 2.06 Mitral Valve A-Wave Peak Velocity: 0.54 m/s Mitral Valve E-Wave Peak Velocity: 1.12 m/s Right Ventricle Aorta AO Root Diam: 3.02 cm Ascending Ao Diam: 3.09 cm Aortic Valve AoV Area (Peak Rodrigo): 2.60 cm2, 2.60 cm2 Peak Velocity(Antegrade Flow): 1.09 m/s Peak Gradient(Antegrade Flow): 4.79 mm[Hg] Tricuspid Valve Peak Velocity (Regurgitant Flow): 3.41 m/s Pulmonic Valve Peak Gradient: 3.90 mm[Hg], 4.29 mm[Hg] Right Atrium Right Atrium Systolic Pressure: 24.91 ml, 24.91 ml Dictated by: Nicolle Masters M.D. on 10/27/2024 at 10:13 Approved by: Nicolle Masters M.D. on 10/27/2024 at 10:35
--- OUTSIDE RECORDS SUMMARY | 2024-10-26 13:00 | XMS_ITS ---
Author Organization [facility] Address [address] [place] [address] Care Team Providers Care Petroleum Engineering Teacher Name Role Phone Bee Moya MD Primary Care Provider Active Problems Problem Noted Date Diagnosed Date [...] CO 7.48 L/min based on RHC at [facility] 02/2024 multifactorial in the setting of history of PE, mediastinal radiation and post radiation fibrosis, bronchiectasis Assessment & Plan (07/08/2024 12:10 PM EDT): Mild pulmonary hypertension mPAP 22, PVR 1.74 morillo, pcwp 4, CO 7.48 L/min based on RHC at [facility] 02/2024 multifactorial in the setting of history of PE, mediastinal radiation and post radiation fibrosis, bronchiectasis Assessment & Plan (07/07/2024 4:34 PM EDT): Mild pulmonary hypertension mPAP 22, PVR 1.74 morillo, pcwp 4, CO 7.48 L/min based on RHC at [facility] 02/2024 multifactorial in the setting of [...] (07/20/2024): Added automatically from request for surgery [id number] Asymptomatic premature menopause 09/05/2016 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 Protocol(s): IRB #3422 BU/Cy/FUNERAL DRIVER Preparative regimen: Bu/Cy/FUNERAL DRIVER Mobilization regimen: G+P Stem cell source: Apheresis [...]
--- OUTSIDE RECORDS SUMMARY | 2024-10-26 13:00 | XMS_ITS | Encounter Summary ---
Author Organization [facility] Address [address] [facility] [place] [address] Care Team Providers Care Domestic Violence Counselor Name Role Phone Bee Moya MD Primary Care Provider [phone] Bee Moya MD Unavailable [phone] Encounter Details Date Type Department Care Team ([facility] Contact Info) Description 08/26/2024 Abstract [facility] [place] [facility] [address] [place] [phone] Sebastian Montiel DO [address] [facility] [address] [place] [address] Social History Tobacco Use Types Packs/Day Years [...] Upcoming Encounters Date Type Department Care Team ([facility] Contact Info) Description 03/17/2025 11:00 AM EST Office Visit [facility] [place] [facility] [address] [place] [phone] Bee Moya MD [address] [facility] [place] [address] 08/19/2025 11:00 AM EDT Office Visit [facility] [address] [facility] [place] [phone] Sebastian Montiel DO [address] [place] [address] documented as of this encounter Visit Diagnoses Not on filedocumented in this encounter Additional Health Concerns Assessment Noted Time PHQ-9 Depression Total Score: 5 06/09/19 25 8:00 AM EDT documented as of this encounter Care Teams Domestic Violence Counselor Relationship Specialty Start Date End Date Bee Moya MD [address] [place] [address] PCP - General Internal Medicine 06/26/22 Bee Moya MD [address] [facility] [place] [address] PCP - Aetna 10/19/21 Dr. Ledezma Referring Physician Oncology 08/08/23 Dr. Elliott Referring Physician Cardiology 08/08/23 Dr. Clemons Referring Physician Rheumatology 08/08/23 Dr. Becerril Referring Physician Pulmonary Disease 08/08/23 Dr. Franco Referring Physician Otolaryngology 08/08/23 Emely Bonilla Referring Physician Palliative Medicine 08/08/23 documented as of this encounter
--- OUTSIDE RECORDS SUMMARY | 2024-10-26 13:00 | XMS_ITS | Clinical Summary ---
Author Organization [facility] Address [address] [place] [address] Phone Care Team Providers Care Pipe Manufacture Supervisor Name Role Phone Bee Moya MD Primary Care Provider Social History Tobacco Use Types Packs/Day Years [...] (1 of 1 - Standard series) 07/12/1983 Hepatitis C Screening 2000 Hepatitis B Vaccines (1 of 3 - 19+ 3-dose series) 2001 Pneumococcal Vaccine: Pediatrics and At-Risk Adult Patients (1 of 2 - PCV) 2001 Zoster Vaccines (1 of 2) 2001 HPV/Cotest 07/12/2003 DTaP/Tdap/Td Vaccines (1 - Tdap) 2004 HPV Vaccines (1 - 3-dose standard series) 2009 Cervical Cancer Screening 10/14/2020 Pap Smear 10/14/2020 10/14/2017, 10/26/2016 Medicare Annual Wellness Visit (AWV) 05/31/2021 05/30/2020, 02/26/2019 Mammogram 2022 COVID-19 Vaccine (2 5 season) 2024 Influenza Vaccine (#1) 2024 Welcome to Medicare [...] patient's age to complete this topic [facility]URE AETNA MEDICARE ASSURE Care Teams Pipe Manufacture Supervisor Relationship Specialty Start Date End Date Bee Moya MD [address] [facility] [facility] [place] [address] PCP - General 08/24/19
--- OUTSIDE RECORDS SUMMARY | 2024-10-26 13:00 | XMS_ITS | Encounter Summary ---
Author Organization [facility] Address [address] [place] [address] Care Team Providers Care Tool Machine Shop Supervisor Name Role Phone Bee Moya MD Primary Care Provider [phone] Bee Moya MD Unavailable [phone] Encounter Details Date Type Department Care [...] Office Visit [facility] [place] [facility] [address] [place] [phone] Bee Moya MD [address] [facility] [place] [address] 08/19/2025 11:00 AM EDT Office Visit [facility] [address] [place] [address] Sebastian Montiel DO [address] [place] [address] documented as of this encounter Procedures Procedure Name Priority Date/Time Associated Diagnosis Comments US CHEST EFFUSION SURVEY 01/03/2024 1:40 PM EST documented in this encounter Results * US CHEST EFFUSION SURVEY (01/03/2024 1:40 PM EST) Anatomical Region Laterality Modality Other 01/03/2024 1:40 PM EST Narrative 01/05/2024 10:42 PM EST * * *Final Report* * * DATE OF EXAM: Jan 03 2024 1:40PM [facility] 1234 - US CHEST EFFUSION SURVEY [...] pleural effusion and small LEFT pleural effusion. Maternal Child Nurse: Embotics Transcribe Date/Time: Jan 05 2024 10:39P Dictated by : FIORELLA RIVERA DO This examination was interpreted and the report reviewed and electronically signed by: FIORELLA RIVERA DO on Jan 05 2024 10:40PM EST [id number]^AGFA_IDC^SI^ACN Procedure Note Radiology, Radiologist, MD - 01/05/2024 * * *Final Report* * * DATE OF EXAM: Jan 03 2024 1:40PM [facility] 1234 - US CHEST EFFUSION SURVEY [...] pleural effusion and small LEFT pleural effusion. Maternal Child Nurse: Embotics Transcribe Date/Time: Jan 05 2024 10:39P Dictated by : FIORELLA RIVERA DO This examination was interpreted and the report reviewed and electronically signed by: FIORELLA RIVERA DO on Jan 05 2024 10:40PM EST [id number]^AGFA_IDC^SI^ACN us Generic External Data Provider [facility] Final Result documented in this encounter Visit Diagnoses Not on filedocumented in this encounter Additional Health Concerns Assessment Noted Time PHQ-9 Depression Total Score: 5 11/28/19 24 8:00 AM EDT documented as of this encounter Care Teams Tool Machine Shop Supervisor Relationship Specialty Start Date End Date Bee Moya MD [address] [facility] [place] [address] PCP - General Internal Medicine 06/26/22 Bee Moya MD [address] [facility] [place] [address] PCP - Aetna 10/19/21 Dr. Ledezma Referring Physician Oncology 08/08/23 Dr. Elliott Referring Physician Cardiology 08/08/23 Dr. Clemons Referring Physician Rheumatology 08/08/23 Dr. Becerril Referring Physician Pulmonary Disease 08/08/23 Dr. Franco Referring Physician Otolaryngology 08/08/23 Emely Bonilla Referring Physician Palliative Medicine 08/08/23 documented as of this encounter
--- OUTSIDE RECORDS SUMMARY | 2024-10-26 13:00 | XMS_ITS | Encounter Summary ---
Author Organization [facility] Address [address] [place] [address] Care Team Providers Care Orthodontic Technician Name Role Phone Bee Moya MD Primary Care Provider Bee Moya MD Unavailable [phone] Encounter Details Date Type Department Care Team [...] Upcoming Encounters Date Type Department Care Team ([facility] Contact Info) Description 03/17/2025 11:00 AM EST Office Visit [facility] [place] [facility] [address] [place] [phone] Bee Moya MD [address] [facility] [place] [address] 08/19/2025 11:00 AM EDT Office Visit [facility] [address] [facility] [address] Sebastian Montiel DO [address] [place] [address] documented as of this encounter Procedures Procedure [...] QTC Calculation(Bazett) : 459 ms Calculated P [place] : 59 degrees Calculated R [place] : -38 degrees Calculated T [place] : 30 degrees Sinus tachycardia Left axis deviation Minimal voltage criteria for LVH, may be normal variant Cannot rule out Anterior infarct , age undetermined Abnormal ECG 1937 NO STEMI Confirmed by SAEED HUDDLESTON MD ([id number]), legal editor SHERIN DELACRUZ ([id number]) on 12/19/2023 9:38:42 AM NAME : CELSO POTTS PID : [id number] : 1980 Gender : Female Race : ORD : [id number] Procedure Date : Dec 18 2023 19:31:27 Edit Date : Dec 19 2023 09:38:44 Diagnosis: Sinus tachycardia Left axis deviation Minimal voltage criteria for LVH, may be normal variant Cannot rule out Anterior infarct , age undetermined Abnormal ECG 1937 NO STEMI Confirmed by SAEED HUDDLESTON MD ([id number]), legal editor SHERIN DELACRUZ ([id number]) on 12/19/2023 9:38:42 AM Test Reason : Chest Pain Location : 302 : ED ED Overread By : SAEED HUDDLESTON MD Edited By : SHERIN DELACRZU Referred By : , Acquired by : [id number], Procedure Note Radiology, Radiologist, - 12/19/2023 Ventricular Rate : 101 BPM Atrial Rate : 101 BPM P-R Interval : 168 ms QRS Duration : 102 ms Q-T Interval : 354 ms QTC Calculation(Bazett) : 459 ms Calculated P [place] : 59 degrees Calculated R [place] : -38 degrees Calculated T [place] : 30 degrees Sinus tachycardia Left axis deviation Minimal voltage criteria for LVH, may be normal variant Cannot rule out Anterior infarct , age undetermined Abnormal ECG 1937 NO STEMI Confirmed by SAEED HUDDLESTON MD ([id number]), legal editor SHERIN DELACRUZ ([id number]) on12/19/2023 9:38:42 AM NAME : CELSO POTTS PID : [id number] : 1980 Gender : Female Race : ORD : [id number] Procedure Date : Dec 18 2023 19:31:27 Edit Date : Dec 19 2023 09:38:44 Diagnosis: Sinus tachycardia Left axis deviation Minimal voltage criteria for LVH, may be normal variant Cannot rule out Anterior infarct , age undetermined Abnormal ECG 1937 NO STEMI Confirmed by SAEED HUDDLESTON MD ([id number]), legal editor SHERIN DELACRUZ ([id number]) on12/19/2023 9:38:42 AM Test Reason : Chest Pain Location : 302 : ED ED Overread By : SAEED HUDDLESTON MD Edited By : SHERIN DELACRUZ Referred By : , Acquired by : [id number], us Generic External Data Provider ECG ORDERABLES F inal Result [facility] documented in this encounter Visit Diagnoses Not on filedocumented in this encounter Additional Health Concerns Assessment Noted Time PHQ-9 Depression Total Score: 5 11/28/19 24 8:00 AM EDT documented as of this encounter Care Teams Orthodontic Technician Relationship Specialty Start Date End Date Bee Moya MD [address] [facility] [address] [place] [address] PCP - General Internal Medicine 06/26/22 Bee Moya MD [address] [facility] [place] [address] PCP - Aetna 10/19/21 Dr. Ledezma Referring Physician Oncology 08/08/23 Dr. Elliott Referring Physician Cardiology 08/08/23 Dr. Clemons Referring Physician Rheumatology 08/08/23 Dr. Becerril Referring Physician Pulmonary Disease 08/08/23 Dr. Franco Referring Physician Otolaryngology 08/08/23 Emely Bonilla Referring Physician Palliative Medicine 08/08/23 documented as of this encounter
--- OUTSIDE RECORDS SUMMARY | 2024-10-26 13:00 | XMS_ITS | Encounter Summary ---
Author Organization [facility] Address [address] [place] [address] Care Team Providers Care Community Support Associate Name Role Phone Bee Moya MD Primary Care Provider [phone] Bee Moya MD Unavailable [phone] Encounter Details Date Type Department Care [...] Upcoming Encounters Date Type Department Care Team ([facility] Contact Info) Description 03/17/2025 11:00 AM EST Office Visit [facility] [place] [facility] [address] [place] [phone] Bee Moya MD [address] [place] [address] 08/19/2025 11:00 AM EDT Office Visit [facility] [address] [facility] [place] [address] Sebastian Montiel DO [address] [place] [address] documented as of this encounter Procedures Procedure [...] likely related to post radiation change, stable. On Call: DEDE Transcribe Date/Time: Nov 21 2023 11:58A Dictated by : YOGESH DAVIS MD This examination was interpreted and the report reviewed and electronically signed by: YOGESH DAVIS MD on Nov 21 2023 12:06PM EST [id number]^AGFA_IDC^SI^ACN Procedure Note Radiology, Radiologist, - 11/21/2023 * [...] likely related to post radiation change, stable. On Call: PSCB Transcribe Date/Time: Nov 21 2023 11:58A Dictated by : YOGESH DAVIS MD This examination was interpreted and the report reviewed and electronically signed by: YOGESH DAVIS MD on Nov 21 2023 12:06PM EST [id number]^AGFA_IDC^SI^ACN us Generic External Data Provider [facility] [...] 74 - 99 mg/dL [facility] Comment: The [place] Diabetes Association (ADA) provides guidance for cutoff [...] Standards of Medical Care in Diabetes 2016, [place] [employer] Association. Diabetes Care. 2016.39(Suppl 1). [facility] [...] AM EDT 11/21/2023 12:39 PM EDT Narrative [facility] - 11/21/2023 5:23 PM EDT Specimen Type: BLOOD SPECIMEN Ordering Facility: [facility] Address: [address] [place] [address] Original Ordering Provider: LINETTE LOPEZ us Generic External Data Provider MELVIN bradford Result [facility] [address] [place] [address] [place] [address] * [facility] CBC W AUTO DIFF BLD [...] AM EDT 11/21/2023 12:43 PM EDT Narrative MELVIN - 11/21/2023 1:41 PM EDT Specimen Type: BLOOD SPECIMEN Ordering Facility: [facility] Address: [address] [place], [place] [id number] Original Ordering Provider: LINETTE LOPEZ us Generic External Data Provider MELVIN F inal Result Performing Organization Address City/State/[facility] Co de Phone Number [facility] [address] [facility] [address] [address] documented in this encounter Visit Diagnoses Not on filedocumented in this encounter Additional Health Concerns Assessment Noted Time PHQ-9 Depression Total Score: 2 08/26/19 24 9:00 AM EDT documented as of this encounter Care Teams Community Support Associate Relationship Specialty Start Date End Date Bee Moya MD [address] [place] [address] PCP - General Internal Medicine 06/26/22 Bee Moya MD [address] [place] [address] PCP - Aetna 10/19/21 Dr. Ledezma Referring Physician Oncology 08/08/23 Dr. Elliott Referring Physician Cardiology 08/08/23 Dr. Clemons Referring Physician Rheumatology 08/08/23 Dr. Becerril Referring Physician Pulmonary Disease 08/08/23 Dr. Franco Referring Physician Otolaryngology 08/08/23 Emely Bonilla Referring Physician Palliative Medicine 08/08/23 documented as of this encounter
--- OUTSIDE RECORDS SUMMARY | 2024-10-26 13:00 | XMS_ITS | Encounter Summary ---
Author Organization [facility] Address [address] [place] [address] Care Team Providers Care Food And Beverage Server Name Role Phone Bee Moya MD Primary Care Provider [phone] Bee Moya MD Unavailable [phone] Encounter Details Date Type Department Care Team [...] Office Visit [facility] [place] [facility] [address] [place] [address] Bee Moya MD [address] [facility] [place] [place] [address] 08/19/2025 11:00 AM EDT Office Visit [facility] [address] [facility] [place] [address] Sebastian Montiel DO [address] [place] [address] documented as of this encounter Procedures Procedure [...] * Radiopharmaceutical Dose: 12.1 mCi * Radiopharmaceutical: C14-Ttjibwheeubmwshjze (FDG) COMPARISON: FDG PET/CT dated 01/28/2023. CORRELATION: None. RESULT: REFERENCES: SUV reference values: * Blood pool (descending aorta) activity: SUVmax 2.8 * Background liver activity: SUVmax 3.6; SUVmean 2.7 Roper Operator (topogram) images: No additional findings. Notes and [...] any questions regarding this interpretation, please call [phone]. If you are unable to reach us at the number above, please feel free to contact [facility] at [phone]. [id number]^AGFA_IDC^SI^ACN Procedure Note Radiology, Radiologist, - 05/21/2023 * [...] * Radiopharmaceutical Dose: 12.1 mCi * Radiopharmaceutical: O23-Lfstswwlvoknogzxqb (FDG) COMPARISON: FDG PET/CT dated 01/28/2023. CORRELATION: None. RESULT: REFERENCES: SUV reference values: * Blood pool (descending aorta) activity: SUVmax 2.8 * Background liver activity: SUVmax 3.6; SUVmean 2.7 Roper Operator (topogram) images: No additional findings. Notes and [...] any questions regarding this interpretation, please call [phone]. If you are unable to reach us at the number above, please feel free to contact [facility] at [phone]. [id number]^AGFA_IDC^SI^ACN us Generic External Data Provider [facility] Final Result documented in this encounter Visit Diagnoses Not on filedocumented in this encounter Care Teams Food And Beverage Server Relationship Specialty Start Date End Date Bee Moya MD [address] [facility] [place] [place] [address] PCP - General Internal Medicine 06/26/22 Bee Moya MD [address] [facility] [place] [place] [address] PCP - Aetna 10/19/21 Dr. Ledezma Referring Physician Oncology 08/08/23 Dr. Elliott Referring Physician Cardiology 08/08/23 Dr. Clemons Referring Physician Rheumatology 08/08/23 Dr. Becerril Referring Physician Pulmonary Disease 08/08/23 Dr. Franco Referring Physician Otolaryngology 08/08/23 Emely Bonilla Referring Physician Palliative Medicine 08/08/23 documented as of this encounter
--- OUTSIDE RECORDS SUMMARY | 2024-10-26 13:00 | XMS_ITS | Encounter Summary ---
Author Organization [facility] Address [address] [place] [address] Care Team Providers Care Director Public Name Role Phone Bee Moya MD Primary Care Provider [phone] Bee Moya MD Unavailable [phone] Encounter Details Date Type Department Care [...] Upcoming Encounters Date Type Department Care Team ([facility] Contact Info) Description 03/17/2025 11:00 AM EST Office Visit [facility] [place] [facility] [address] [place] [phone] Bee Moya MD [address] [place] [address] 08/19/2025 11:00 AM EDT Office Visit [facility] [address] [facility] [place] [address] Sebastian Montiel DO [address] [place] [address] documented as of this encounter Procedures Procedure [...] at sacroiliac joints. No active sacroiliitis evident Chemical Plant Worker: [facility] Transcribe Date/Time: Oct 09 2023 2:37P Dictated by : SHANNEN HILLIARD MD This examination was interpreted and the report reviewed and electronically signed by: SHANNEN HILLIARD MD on Oct 09 2023 2:39PM EST [id number]^AGFA_[id number]^SI^ACN Procedure Note Radiology, Radiologist, - 10/09/2023 * [...] at sacroiliac joints. No active sacroiliitis evident Chemical Plant Worker: [employer] Transcribe Date/Time: Oct 09 2023 2:37P Dictated by : SHANNEN HILLIARD MD This examination was interpreted and the report reviewed and electronically signed by: SHANNEN HILLIARD MD on Oct 09 2023 2:39PM EST [id number]^AGFA_IDC^SI^ACN us Generic External Data Provider [facility] Final Result documented in this encounter Visit Diagnoses Not on filedocumented in this encounter Additional Health Concerns Assessment Noted Time PHQ-9 Depression Total Score: 2 08/26/19 24 9:00 AM EDT documented as of this encounter Care Teams Director Public Relationship Specialty Start Date End Date Bee Moya MD [address] [place] [address] PCP - General Internal Medicine 06/26/22 eBe Moya MD [address] [place] [address] PCP - Aetna 10/19/21 Dr. Ledezma Referring Physician Oncology 08/08/23 Dr. Elliott Referring Physician Cardiology 08/08/23 Dr. Clemons Referring Physician Rheumatology 08/08/23 Dr. Becerril Referring Physician Pulmonary Disease 08/08/23 Dr. Franco Referring Physician Otolaryngology 08/08/23 Emely Bonilla Referring Physician Palliative Medicine 08/08/23 documented as of this encounter
--- OUTSIDE RECORDS SUMMARY | 2024-10-26 13:00 | XMS_ITS | Encounter Summary ---
Author Organization [facility] Address [address] [place] [address] Care Team Providers Care Pulley Man Name Role Phone Bee Moya MD Primary Care Provider [phone] Bee Moya MD Unavailable [phone] Encounter Details Date Type Department Care [...] Date Type Department Care Team ([facility] Contact Info) Description 03/17/2025 11:00 AM EST Office Visit [facility] [place] [facility] [address] [place] [address] Bee Moya MD [address] [place] [address] 08/19/2025 11:00 AM EDT Office Visit JOSSELYN [facility] [address] [facility] [place] [address] Sebastian Montiel DO [address] [place] [address] documented as of this encounter Procedures Procedure [...] * Uptake Time: 44 minutes * Radiopharmaceutical: N70-Civnumynidpcoalpur (FDG) COMPARISON: 05/20/2023 CORRELATION: Outside CT chest [...] any questions regarding this interpretation, please call [phone]. If you are unable to reach us at the number above, please feel free to contact [facility] at [phone]. [id number]^AGFA_IDC^SI^ACN Procedure Note Radiology, Radiologist, - 12/15/2023 * [...] * Uptake Time: 44 minutes * Radiopharmaceutical: L69-Ofeozkgriztozdvqkh (FDG) COMPARISON: 05/20/2023 CORRELATION: Outside CT chest [...] any questions regarding this interpretation, please call [phone]. If you are unable to reach us at the number above, please feel free to contact [facility] at [phone]. [id number]^AGFA_IDC^SI^ACN us Generic External Data Provider [facility] Final Result documented in this encounter Visit Diagnoses Not on filedocumented in this encounter Additional Health Concerns Assessment Noted Time PHQ-9 Depression Total Score: 5 11/28/19 24 8:00 AM EDT documented as of this encounter Care Teams Pulley Man Relationship Specialty Start Date End Date Bee Moya MD [address] [place] [address] PCP - General Internal Medicine 06/26/22 Bee Moya MD [address] [place] [address] PCP - Aetna 10/19/21 Dr. Ledezma Referring Physician Oncology 08/08/23 Dr. Elliott Referring Physician Cardiology 08/08/23 Dr. Clemons Referring Physician Rheumatology 08/08/23 Dr. Becerril Referring Physician Pulmonary Disease 08/08/23 Dr. Franco Referring Physician Otolaryngology 08/08/23 Emely Bonilla Referring Physician Palliative Medicine 08/08/23 documented as of this encounter
--- OUTSIDE RECORDS SUMMARY | 2024-10-26 13:00 | XMS_ITS | Encounter Summary ---
Author Organization [facility] Address [address] [place] [address] Care Team Providers Care Survey Interviewer Name Role Phone Bee Moya MD Primary Care Provider [phone] Bee Moya MD Unavailable [phone] Encounter Details Date Type Department Care Team [...] Department Care Team ([facility] Contact Info) Description 03/17/2025 11:00 AM EST Office Visit [facility] [place] [facility] [address] [place] [address] Bee Moya MD [address] [place] [address] 08/19/2025 11:00 AM EDT Office Visit JOSSELYN [facility] [address] [facility] [address] Sebastian Montiel DO [address] [place] [address] documented as of this encounter Procedures Procedure [...] No erosive arthropathy 2. Bilateral calcaneal enthesophytes Director Outpatient Services: DEDE Transcribe Date/Time: Oct 09 2023 2:40P Dictated by : SHANNEN HILLIARD MD This examination was interpreted and the report reviewed and electronically signed by: SHANNEN HILLIARD MD on Oct 09 2023 2:42PM EST [id number]^AGFA_IDC^SI^ACN Procedure Note Radiology, Radiologist, - 10/09/2023 * [...] No erosive arthropathy 2. Bilateral calcaneal enthesophytes Director Outpatient Services: DEDE Transcribe Date/Time: Oct 09 2023 2:40P Dictated by : SHANNEN HILLIARD MD This examination was interpreted and the report reviewed and electronically signed by: SHANNEN HILLIARD MD on Oct 09 2023 2:42PM EST [id number]^AGFA_IDC^SI^ACN us Generic External Data Provider [facility] Final Result documented in this encounter Visit Diagnoses Not on filedocumented in this encounter Additional Health Concerns Assessment Noted Time PHQ-9 Depression Total Score: 2 08/26/19 24 9:00 AM EDT documented as of this encounter Care Teams Survey Interviewer Relationship Specialty Start Date End Date Bee Moya MD [address] [place] [address] PCP - General Internal Medicine 06/26/22 Bee Moya MD [address] [place] [address] PCP - Aetna 10/19/21 Dr. Ledezma Referring Physician Oncology 08/08/23 Dr. Elliott Referring Physician Cardiology 08/08/23 Dr. Clemons Referring Physician Rheumatology 08/08/23 Dr. Becerril Referring Physician Pulmonary Disease 08/08/23 Dr. Franco Referring Physician Otolaryngology 08/08/23 Emely Bonilla Referring Physician Palliative Medicine 08/08/23 documented as of this encounter
--- OUTSIDE RECORDS SUMMARY | 2024-10-26 13:00 | XMS_ITS | Encounter Summary ---
Author Organization [facility] Address [address] [place] [address] Care Team Providers Care Rubber Goods Assembler Name Role Phone Bee Moya MD Primary Care Provider [phone] Bee Moya MD Unavailable [phone] Encounter Details Date Type Department Care Team [...] Upcoming Encounters Date Type Department Care Team ([facility] Contact Info) Description 03/17/2025 11:00 AM EST Office Visit [facility] [place] [facility] [address] [place] [phone] Bee Moya MD [address] [facility] [place] [address] 08/19/2025 11:00 AM EDT Office Visit [facility]LYN [facility] [address] [facility] [place] [address] Sebastian Montiel DO [address] [place] [address] documented as of this encounter Procedures Procedure [...] tissues are unremarkable. IMPRESSION: 1. Minimal osteoarthritis V Block Saw Operator: DEDE Transcribe Date/Time: Oct 09 2023 2:39P Dictated by : SHANNEN HILLIARD MD This examination was interpreted and the report reviewed and electronically signed by: SHANNEN HILLIARD MD on Oct 09 2023 2:40PM EST [id number]^AGFA_IDC^SI^ACN Procedure Note Radiology, Radiologist, MD - 10/09/2023 * * *Final Report* * [...] tissues are unremarkable. IMPRESSION: 1. Minimal osteoarthritis V Block Saw Operator: DEDE Transcribe Date/Time: Oct 09 2023 2:39P Dictated by : SHANNEN HILLIARD MD This examination was interpreted and the report reviewed and electronically signed by: SHANNEN HILLIARD MD on Oct 09 2023 2:40PM EST [id number]^AGFA_IDC^SI^ACN us Generic External Data Provider [facility] Final Result documented in this encounter Visit Diagnoses Not on filedocumented in this encounter Additional Health Concerns Assessment Noted Time PHQ-9 Depression Total Score: 2 08/26/19 24 9:00 AM EDT documented as of this encounter Care Teams Rubber Goods Assembler Relationship Specialty Start Date End Date Bee Moya MD [address] [facility] [place] [address] PCP - General Internal Medicine 06/26/22 Bee Moya MD [address] [place] [address] PCP - Aetna 10/19/21 Dr. Ledezma Referring Physician Oncology 08/08/23 Dr. Elliott Referring Physician Cardiology 08/08/23 Dr. Clemons Referring Physician Rheumatology 08/08/23 Dr. Becerril Referring Physician Pulmonary Disease 08/08/23 Dr. Franco Referring Physician Otolaryngology 08/08/23 Emely Bonilla Referring Physician Palliative Medicine 08/08/23 documented as of this encounter
--- OUTSIDE RECORDS SUMMARY | 2024-10-26 13:00 | XMS_ITS | Clinical Summary ---
Author Organization [facility] Address [address] [place] [address] Care Team Providers Care Correctional Officer Sergeant Name Role Phone Bee Moya MD Primary Care Provider [phone] Allergies Active Allergy Reactions Criticality Noted Date [...] (six) hours if needed for wheezing. Active umeclidinium-vilan teroL (Anoro Ellipta) 62.5-25 mcg/actuation blister with device Inhale 1 puff in the morning. Active lisinopril 5 mg tabletIndications: Primary hypertension Take 1 tablet (5 mg) by mouth in the morning for 97 doses. 30 tablet 3 07/11/19 25 Active metoprolol succinate XL (Toprol-XL) 100 mg 24 hr tabletIndications: Primary hypertension Take 1 tablet (100 mg) by mouth in the morning for 97 doses. Do not crush or chew. 30 tablet 3 07/11/19 25 Active rosuvastatin (Crestor) 20 mg tabletIndications: NSTEMI (non-ST elevated myocardial infarction) (CMS/HCC) Take 1 tablet (20 mg) by mouth in the morning for 95 doses. 30 tablet 3 07/11/19 25 Active amoxicillin-pot clavulanate (Augmentin) 875-125 mg tablet Take 1 tablet by mouth twice a day. Active atenolol (Tenormin) 50 mg tablet Take 50 mg by mouth in the morning. 05/08/19 17 Active spironolactone (Aldactone) 25 mg tabletIndications: Heart failure with mildly reduced ejection fraction (CMS/HCC) Take 0.5 tablets (12.5 mg) by mouth in the morning. 45 tablet 3 07/21/19 25 026 Active ivabradine (Corlanor) 5 mg tabletIndications: Inappropriate sinus tachycardia Take 1 tablet (5 mg) by mouth two times daily. 180 tablet 3 07/21/19 25 026 Active nitroglycerin (Nitrostat) 0.4 mg SL tabletIndications: Unstable angina pectoris (CMS/HCC) Place 1 tablet (0.4 mg) under the tongue every 5 (five) minutes if needed for chest pain. 30 tablet 3 08/25/19 25 Active ezetimibe (Zetia) 10 mg tabletIndications: Mixed hyperlipidemia Take 1 tablet (10 mg) by mouth once daily as directed. 90 tablet 3 09/15/19 25 026 Active aspirin 81 mg EC tabletIndications: NSTEMI (non-ST elevated myocardial infarction) (CMS/HCC) Take 1 tablet (81 mg) by mouth in the morning for 95 doses. 30 tablet 3 07/11/19 25 025 clopidogrel (Plavix) 75 mg tabletIndications: NSTEMI (non-ST elevated myocardial infarction) ([facility]) Take 1 tablet (75 mg) by mouth in the morning for 96 doses. 30 tablet 3 07/11/19 25 025 Active Problems Problem Noted Date Diagnosed Date [...] CO 7.48 L/min based on RHC at [facility] 02/2024 multifactorial in the setting of history of PE, mediastinal radiation and post radiation fibrosis, bronchiectasis Assessment & Plan (07/08/2024 12:10 PM EDT): Mild pulmonary hypertension mPAP 22, PVR 1.74 morillo, pcwp 4, CO 7.48 L/min based on RHC at [facility] 02/2024 multifactorial in the setting of history of PE, mediastinal radiation and post radiation fibrosis, bronchiectasis Assessment & Plan (07/07/2024 4:34 PM EDT): Mild pulmonary hypertension mPAP 22, PVR 1.74 morillo, pcwp 4, CO 7.48 L/min based on RHC at [facility] 02/2024 multifactorial in the setting of [...] (07/20/2024): Added automatically from request for surgery [id number] Asymptomatic premature menopause 09/05/2016 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 Protocol(s): IRB #3422 BU/Cy/FIRE BOAT ENGINEER Preparative regimen: Bu/Cy/FIRE BOAT ENGINEER Mobilization regimen: G+P Stem cell source: Apheresis CD34 cell dose (x10e6/kg): 6.17. Date of transplant: 03/25/2013 Encounters Date Type Department Care Team Description 09/14/2024 Orders Only [facility] [address] [place] [address] Radha Mosqueda MA Mixed hyperlipidemia 09/14/2024 Orders Only [facility] [address] [place] [facility] [place] [address] Radha Mosqueda MA Mixed hyperlipidemia (Primary Dx) from Last 3 Months Family History Medical [...] = 0.6 oz pur e alcohol) occasional [facility] Utilities Answer Date Recorded In the past 12 months has [facility] [employer] gas, oil, or water [employer] threatened to shut off services in your [...] time in the past 12 m [facility], were you homeless or living in a jail (including now)? No 07/06/2024 Hunger Vital Sign [...] Description 11/09/2024 9:00 AM EDT Office Visit [facility] [address] [place] [address] Temo Yu MD [address] [facility] [place] [address] Health Maintenance Due Date Last Done Comments [...] this topic Medical Devices Implanted Type Area Boat Painter Device Identifier Shelf Expiration Date Model / Serial / Lot Miranda,Synergy Mr 3.00 X 28 - [id number] Implanted:Qty : 1 on 07/06/2024 by Benjamin Dang MD at [facility] Drug Eluting Stent N/A: Heart [employer] [id number] 12/08/2025 [id number] / / [id number] Stent,Caroline Mr 2.50 X 12 - [id number] Implanted:Qty : 1 on 07/06/2024 by Benjamin Dang MD at [facility] Drug Eluting Stent N/A: [employer] [id number] 09/16/2025 [id number] / / [id number] Procedures Procedure Name Priority Date/Time Associated Diagnosis Comments HEMOGLOBIN A1C Add-On 07/06/2024 8:18 AM EDT from Last 3 Months or Most Recently Relevant to Health Maintenance Results * Hemoglobin A1c (07/06/2024 8:18 AM EDT) Hemoglobin A1C 5.8 4.0 - 6.0 % 07/06/2024 11:56 AM EDT [facility] ([facility]) Estimated Average Glucose 120 mg/dL 07/06/2024 11:56 AM EDT [facility] ([facility]) Blood Venous blood specimen / Unknown Venipuncture / Unknown 07/06/2024 8:18 AM EDT 07/06/2024 8:30 AM EDT us Loy Sweet MD LAB BLOOD ORDERABLES Final Resul t [facility] ([facility]) [address] [place] [address] from Last 3 Months or Most Recently Relevant to Health Maintenance Insurance A[employer] MEDICARE ADVANTAGE MEDICAID [place] Advance Directives * Full Code (Latest Code Status on File) Date Activated Date Inactivated Comments 07/06/2024 8:01 AM 07/09/2024 8:24 PM Care Teams Correctional Officer Sergeant Relationship Specialty Start Date End Date Bee Moya MD [address] [facility] [place] [address] PCP - General Internal Medicine 07/06/24
--- OUTSIDE RECORDS SUMMARY | 2024-10-26 13:00 | XMS_ITS | Encounter Summary ---
Author Organization [facility] Address [address] [place] [address] Care Team Providers Care Websphere Process Server Developer Name Role Phone Bee Moya MD Primary Care Provider [phone] Bee Moya MD Unavailable [phone] Encounter Details Date Type Department Care [...] Type Department Care Team ([facility] Contact Info) Description 03/17/2025 11:00 AM EST Office Visit [facility] [place] [facility] [address] [place] [phone] Bee Moya MD [address] [facility] [place] [address] 08/19/2025 11:00 AM EDT Office Visit J[facility]SELYN [facility] [address] [facility] [address] Sebastian Montiel DO [address] [place] [address] documented as of this encounter Procedures Procedure [...] joint effusions. IMPRESSION: 1. Mild patellofemoral osteoarthritis Drywall Application Supervisor: DEDE Transcribe Date/Time: Oct 09 2023 2:42P Dictated by : SHANNEN HILLIARD MD This examination was interpreted and the report reviewed and electronically signed by: SHANNEN HILLIARD MD on Oct 09 2023 2:43PM EST [id number]^AGFA_IDC^SI^ACN Procedure Note Radiology, Radiologist, - 10/09/2023 * [...] joint effusions. IMPRESSION: 1. Mild patellofemoral osteoarthritis Drywall Application Supervisor: PSCEdwin Transcribe Date/Time: Oct 09 2023 2:42P Dictated by : SHANNEN HILLIARD MD This examination was interpreted and the report reviewed and electronically signed by: SHANNEN HILLIARD MD on Oct 09 2023 2:43PM EST [id number]^AGFA_IDC^SI^ACN us Generic External Data Provider [facility] Final Result documented in this encounter Visit Diagnoses Not on filedocumented in this encounter Additional Health Concerns Assessment Noted Time PHQ-9 Depression Total Score: 2 08/26/19 24 9:00 AM EDT documented as of this encounter Care Teams Websphere Process Server Developer Relationship Specialty Start Date End Date Bee Moya MD [address] [place] [address] PCP - General Internal Medicine 06/26/22 Bee Moya MD [address] [place] [address] PCP - Aet[employer] 10/19/21 Dr. Ledezma Referring Physician Oncology 08/08/23 Dr. Elliott Referring Physician Cardiology 08/08/23 Dr. Clemons Referring Physician Rheumatology 08/08/23 Dr. Becerril Referring Physician Pulmonary Disease 08/08/23 Dr. Franco Referring Physician Otolaryngology 08/08/23 Emely Bonilla Referring Physician Palliative Medicine 08/08/23 documented as of this encounter
--- OUTSIDE RECORDS SUMMARY | 2024-10-26 13:00 | XMS_ITS | Clinical Summary ---
Author Organization [facility] Address [address], [address] [place] [address] Care Team Providers Care Grease Packer Name Role Phone Bee Moya MD Primary Care Provider [phone] Allergies Active Allergy Reactions Criticality Noted Date [...] Insurance MEDICARE MEDICARE MEDICAID [place] Care Teams Grease Packer Relationship Specialty Start Date End Date Bee Moya MD [address] [address] PCP - General Internal Medicine 08/15/17
[2024-10-26 15:10] LABS: Alanine Aminotransferase 67 U/L (14-59); Albumin Globulin Ratio 1.1; Albumin Level 4.0 g/dL (3.4-5.0); Alkaline Phosphatase 55 U/L (46-116); Anion Gap 13.6; Aspartate Amino Transferase 35 U/L (15-37); Blood Urea Nitrogen 13.0 mg/dL (7.0-18.0); Calcium 9.4 mg/dL (8.5-10.1); Carbon Dioxide 29.8 mmol/L (21.0-32.0); Chloride 105 mmol/L (98-107); Cholesterol 161 mg/dL (<=200); Estimated GFR (African America >60 (>=60 mL/min/1.73m^2); Estimated GFR (Non-African Ame >60 (>=60 mL/min/1.73m^2); Globulin 3.6 g/dL; Glucose 129 mg/dL (74-106); HDL Cholesterol 69 mg/dL (40-60); Potassium 5.4 mmol/L (3.5-5.1); Sodium 143 mmol/L (136-145); Total Protein 7.6 g/dL (6.4-8.2); Triglycerides 73 mg/dL (<=150); VLDL CHOLESTEROL 14.6 mg/dL
== END 2024-10-26 12:57 | disposition home or self-care (01) ==
PROVIDERS: PCP Internal Medicine; Visit Provider Internal Medicine Interventional Cardiology
DX: E78.2 Mixed hyperlipidemia (principal); I50.22 Chronic systolic (congestive) heart failure; I25.10 Atherosclerotic heart disease of native coronary artery without angina pectoris
CPT/HCPCS: 36415; 80048; 80061; 80076; 93306

== ENCOUNTER 2024-11-27 06:55 | Outpatient (RCR) | payer MEDICARE, MEDICAID, SELFPAY ==
--- NOTE | 2024-07-22 10:36 | CR1_ITS ---
[facility] Test Date: 2024-07-22 Pat Name: CELSO POTTS Department: Room: - Gender: Female Blue Split Trimmer: : 1980 Requested By: Diaz Stone Order Number: [id number] Gayle MD: Diaz Stone Interpretive Statements Okay to proceed with outlined treatment plan. Electronically Signed On 07-22-2024 16:45:56 EDT by Diaz Stone
--- NOTE | 2024-07-22 14:42 | CR1_ITS ---
[facility] Test Date: 2024-07-24 Pat Name: CELSO POTTS Department: Room: - Gender: Female Food Quality Tester: : 1980 Requested By: Diaz Stone Order Number: [id number] Gayle MD: Diaz Stone Interpretive Statements Okay to proceed with outlined treatment plan. Electronically Signed On 07-28-2024 14:05:26 EDT by Diaz Stone
--- NOTE | 2024-08-13 08:12 | CR1_ITS ---
[facility] Test Date: 2024-08-13 Pat Name: CELSO POTTS Department: Room: - Gender: Female Bundling Machine Operator: : 1980 Requested By: Diaz Stone Order Number: [id number] Gayle MD: Diaz Stone Interpretive Statements Okay to continue with outlined treatment plan. Electronically Signed On 08-13-2024 15:29:52 EDT by Diaz Stone
--- NOTE | 2024-09-17 08:45 | CR1_ITS ---
[facility] Test Date: 2024-09-17 Pat Name: CELSO POTTS Department: Room: - Gender: Female Merchandiser Seasonal: : 1980 Requested By: ORA CARPENTER Order Number: [id number] Gayle MD: TREY HDZ M.D. Interpretive Statements Patient may continue cardiac rehab as outlined in the treatment plan. Electronically Signed On 09-25-2024 10:23:07 EDT by TREY HDZ M.D.
--- NOTE | 2024-10-15 07:17 | CR1_ITS ---
[facility] Test Date: 2024-10-15 Pat Name: CELSO POTTS Department: Room: - Gender: Female Brine Room Laborer: : 1980 Requested By: TREY HDZ M.D. Order Number: [id number] Reading MD: Herve Pearce Interpretive Statements Session Date: Electronically Signed On 10-16-2024 13:28:37 EDT by Herve Pearce
--- NOTE | 2024-11-16 08:16 | CR1_ITS ---
[facility] Test Date: 2024-11-16 Pat Name: CELSO POTTS Department: Room: - Gender: Female Quality Assurance/R&D Lab Technician: : 1980 Requested By: TREY HDZ M.D. Order Number: [id number] Gayle MD: TREY HDZ M.D. Interpretive Statements Patient may continue cardiac rehab as outlined in the treatment plan. Electronically Signed On 11-17-2024 20:04:09 EDT by TREY HDZ M.D.
--- NOTE | 2024-11-27 07:15 | CR1_ITS ---
The [facility] Test Date: 2024-11-27 Pat Name: CELSO POTTS Department: Room: - Gender: Female Waist Fitter: : 1980 Requested By: TREY HDZ M.D. Order Number: [id number] Gayle MD: TREY HDZ M.D. Interpretive Statements Electronically Signed On 11-27-2024 17:34:18 EDT by TREY HDZ M.D.
== END 2024-11-27 10:10 | disposition home or self-care (01) ==
LOC: CR 06:55
PROVIDERS: PCP Internal Medicine; Visit Provider Internal Medicine Interventional Cardiology
DX: Z98.61 Coronary angioplasty status (principal)
CPT/HCPCS: 93798

== ENCOUNTER 2024-11-27 09:04 | Outpatient (OUT) | payer MEDICARE, MEDICAID, SELFPAY ==
--- OUTSIDE RECORDS SUMMARY | 2024-11-27 09:08 | XMS_ITS | Clinical Summary ---
Author Organization [facility] Address [address] [place] [address] Care Team Providers Care Hospice Manager Name Role Phone Unavailable Primary Care Provider [...] DISCUSSION 1997 CERVICAL CANCER SCREENING DISCUSSION 07/12/2003 HPV VACCINE (1 - 3-dose SCDM series) 2009 LIPID SCREENING 2022 MAMMOGRAM SCREENING DISCUSSION 2022 TETANUS 03/11/2024 03/11/2014, 02/19, 03/11/2014, Additional history exists COVID-19 VACCINE ( season) 2024 INFLUENZA VACCINE (#1) 2024 12/16/2014, 2013 TDAP (ADULT) Completed 03/11/2014, 10/14/2013 HEP B VACCINE Completed 06/16/2014, 04/2013, 10/14/2013, Additional history exists PNEUMOCOCCAL VACCINE SERIES Aged Out 05/20, 03/11/2014, 12/21/2013, Additional history exists No longer eligible based on patient's age to complete this topic Insurance Medicare A and B Medicaid
--- OUTSIDE RECORDS SUMMARY | 2024-11-27 09:31 | XMS_ITS | CCD ---
Author Organization [facility] Care Team Providers Care Script Girl Name Role Phone Mary RODRIGUEZ, Abdo Unavailable Genna RODRIGUEZ, Bee A Primary Care Provider [phone] Marilyn Hughes RN Unavailable Mary RODRIGUEZ, Abdo Unavailable Kristina Pete RN Unavailable Unavailable Emely 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Irene VASQUEZ Unavailable [phone] Kylie Johnosn Unavailable Mary RODRIGUEZ, Abdo Unavailable Genna RODRIGUEZ, Bee A Primary Care Provider Marilyn Hughes RN Unavailable Mary RODRIGUEZ, Abdo Unavailable Juan R WALL, Kristina Unavailable Unavailable Emely 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Irene VASQUEZ Unavailable Kylie Mosher RN Unavailable Unavail able Genna RODRIGUEZ, Bee A Primary Care Provider Mary RODRIGUEZ, Abdo Unavailable Genna RODRIGUEZ, Bee A Primary Care Provider Marilyn Hughes RN Unavailable Mary RODRIGUEZ, Abdo Unavailable Juan R WALL, Kristina Unavailable Unavailable Emely 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Irene VASQUEZ Unavailable Kylie Mosher RN Unavailable Unavail able DR MARIELENA CHAVIRA Primary Care Unavailable IGLESIA BLAKELY Admitting Unavailable IGLESIA BLAKELY Attending Unavailable IGLESIA BLAKELY Consulting Unavailable CONG ALMANZAR Consulting Unavailable DR MARIELENA CHAVIRA Primary Care Unavailable PAY ., DR PARHAM Admitting Unavailable PAY ., DR PARHAM Attending Unavailable BITA ., ZAIRA Consulting Unavailable Emely 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FORM RAISER, Irene Unavailable Juan R WALL, Kristina Unavailable Unavailable Emely 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FORM RAISER, Irene Unavailable [phone] Nomi WALL, Kylie [...] Care Provider Darien RODRIGUEZ, Ruperto Pacheco Unavailable Crockett 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FORM RAISER, Ellyn Unavailable Crockett 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FORM RAISER, Ellyn Unavailable Alex GODWIN, Fabiana Unavailable Unavailable Keke Bright Attending Unavailable Keke Bright Admitting Unavailable Genna, Bee A Primary Care Unavailable Genna RODRIGUEZ Bee A Unavailable Genna RODRIGUEZ Bee A Primary Care Provider Genna RODRIGUEZ Bee A Primary Care Provider Crockett 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FORM RAISER, Ellyn Unavailable Crockett 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FORM RAISER, Ellyn Unavailable Mary RODRIGUEZ, Abdo Unavailable Genna RODRIGUEZ Bee A Primary Care Provider Mary RODRIGUEZ, Abdo Unavailable Marilyn Hughes RN Unavailable Unavailable Juan R RN, Kristina Sales Unavailable Unavailjoshua Vail MD, Bee A Unavailable Araceli 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FORM RAISER, Sheila Patel Unavailable Krishna 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FORM RAISER, Ellyn Unavailable MEHUL, JANI Referring Unavailable VAIL, BEE A Primary Care Unavailable PELFREY, CAROLE Referring Unavailable VAIL, BEE A Primary Care Unavailable ANIL FRANCO (PA) Referring Unavailable VAIL, BEE A Primary Care Unavailable ANIL FRANCO (PA) Referring Unavailable VAIL, BEE A Primary Care Unavailable MEHUL, JANI Referring Unavailable VAIL, BEE A Primary Care Unavailable VAIL, BEE A Primary Care Unavailable PLESCA, CAL Admitting Unavailable CARLOS CASTELLON T Attending Unavailable CHINO, SHEELA Referring Unavailable VAIL, BEE A Primary Care Unavailable KIRUPRUBEN, PRADHAB Referring Unavailable VAIL, BEE A Primary Care Unavailable Darien RODRIGUEZ, Ruperto Unavailable SHEILA LIN Attending Unavailable RAMBASEKGABRIELLE Attending Unavailable VENEMANSHEILA Attending Unavailable VAIL, BEE A Attending Unavailable ZACHARYCRISTINE HAWTHORNE Attending Unavailable ZACHARYCRISTINE PRINCE Attending Unavailable VAIL, BEE A Attending Unavailable VENEMANSHEILA Attending Unavailable RAMBASEKGABRIELLE Attending Unavailable VENEMANSHEILA Attending Unavailable RAMBASEKGABRIELLE Attending Unavailable USAMA, MIKE Referring Unavailable ANGELINA, JEFF Referring Unavailable ANGELINA, JEFF Referring Unavailable ASHLEY, ANIL Referring Unavailable SHERLY DANG Referring Unavailable TEMO HDZ Attending Unavailable MOUKATRAMAINEELTEMO Attending Unavailable ASHLEY, ANIL Referring Unavailable REDDY, IGLESIA T Referring Unavailable SANAULLDELFINO, JHONNY Admitting Unavailable TONY FLANAGAN T Attending Unavailable VALDEZ, LIZ Referring Unavailable ANGELINA, JEFF Referring Unavailable VALDEZ, LIZ Referring Unavailable AVIL, BEE A Primary Care Unavailable KODI PANTOJA G Referring Unavailable BERKODI THORNTON Attending Unavailable ELLYN LOPEZ Referring Unavailable VAIL, BEE A Primary Care Unavailable VAIL, BEE A Primary Care Unavailable SELF Referring Unavailable MILLER, KYLIE Attending Unavailable VAIL, BEE A Primary Care Unavailable IRENE HAN Attending Unavailable VAIL, BEE A Primary Care Unavailable KORINA VEGA Referring Unavailable VAIL, BEE A Primary Care Unavailable IRENE HAN Attending Unavailable MILLER, KYLIE Referring Unavailable VAIL, BEE A Primary Care Unavailable MEHUL, JANI Referring Unavailable VAIL, BEE A Primary Care Unavailable GLENDY RUSS Attending Unavailable VAIL, BEE A Primary Care Unavailable MEHUL, JANI Referring Unavailable VAIL, BEE A Primary Care Unavailable BERENGER, KODI G Referring Unavailable BERENGER, KODI G Attending Unavailable RUPERTO LEDEZMA Referring Unavailable VAIL, [...] Primary Care Unavailable MILLER, KYLIE Referring Unavailable RUPERTO LEDEZMA Referring Unavailable VAIL, BEE A Primary Care Unavailable RUPERTO LEDEZMA Referring Unavailable RUPERTO LEDEZMA Attending Unavailable VAIL, BEE A Primary Care Unavailable IRENE HAN Attending Unavailable VAIL, BEE A Primary Care Unavailable VAIL, BEE A Primary Care Unavailable IRENE HAN Attending Unavailable BERENGER, KODI G Referring Unavailable VAIL, BEE A Primary Care Unavailable PELFREY, CAROLE Referring Unavailable KORINA VEGA Attending Unavailable VAIL, BEE A Primary Care Unavailable VAIL, BEE A Referring Unavailable MEHUL, JANI Attending Unavailable RUPERTO LEDEZMA Referring Unavailable VAIL, BEE A Primary Care Unavailable RUPERTO LEDEZMA Referring Unavailable RUPERTO LEDEZMA Attending Unavailable VAIL, BEE A Primary Care Unavailable Allergies Allergy Classification Reported Allergen(s) Allergy Type Date of Onset Reaction(s) Facility Chlorhexidine (3 sources) Chlorhexidine Drug Allergy 4 Itching [facility] Sulfonamides (antibiotic) (3 sources) Sulfonamides (Antibiotic) Drug Allergy 2 Rash [facility] Work Phone: (20 sources) Chlorhexidine; Translations: [CHLORHEXIDINE] Drug Allergy 4 Itching, Unknown [facility] Work Phone: (20 sources) Sulfonamides (Antibiotic); Translations: [SULFA (SULFONAMIDE ANTIBIOTICS)] Drug Allergy 1 Rash, Unknown [facility] Work Phone: (2 sources) Sulfacetamide / Sulfur Drug Allergy rash [facility] Other (1 source) Sulfonamides (Antibiotic) Drug allergy (disorder) [facility] Repository (1 source) Sulfacetamide Drug Allergy 3 [facility] Repository (1 source) Sulfur Drug Allergy 3 [facility] Medications Current Medications Medication Drug Class(es) Dates Sig (Normalized) Sig (Original) [id number] actuat albuterol 0.09 mg/actuat metered dose inhaler (20 sources) beta2-Adrenergic Agonist Start: 09-13-2024 End: 09-13-2025 take 2 puff(s) by inhalation every four hours for wheezing albuterol HFA (ProAir HFA) 90 mcg/act inhaler Indications: Asthma, unspecified asthma severity, unspecified whether complicated, unspecified whether persistent (HCC) Inhale 2 puffs every 4 (four) hours if needed for wheezing or shortness of breath 8.5 g 11 09/13/2024 09/13/2025 Active Start: 06-30-2021 End: 01-01-2023 take 2 puff(s) by inhalation every four [...] NOTES). inhale 2 puffs by mo [facility] INTO THE LUNGS every 6 hours Inhale 2 Puffs as in structed every 4 hours as needed for wheezing/shortness of breath. albuterol 0.833 mg/ml / ipratropium bromide 0.167 mg/ml inhalation solution (20 sources) Anticholinergic, beta2-Adrenergic Agonist Start: 05-31-2023 End: 05-31-2023 ipratropium-albuterol 3 mL nebulizer solution (DUONEB) Start: 05-14-2023 [...] (AIRSUPRA) 90-80 mcg/actuation inhaler (20 sources) Start: albuterol-budesonid e HFA (AIRSUPRA) 90-80 mcg/actuation inhaler Take 2 Puffs by mouth every 4 hours as needed for wheezing/shortness of breath. Do not take more than 12 inhalations in a 24 hour period. 10.7 g 3 09/12/2023 Active amoxicillin 875 mg / clavulanate 125 mg oral tablet (1 source) Penicillin-class Antibacterial Start: End: take 1 tablet by mouth twice daily amoxicillin-clavula christa acid (AUGMENTIN) 875-125 mg per tablet Indications: Abnormal CT of the chest Take 1 tablet by mouth twice daily for 7 days. 1 tablet 0 06/04/2022 06/11/2022 Active Comment on above: Take 1 tablet by jaleesa twice daily for 7 days. aspirin 81 mg delayed release oral tablet (18 sources) Platelet Aggregation Inhibitor, Nonsteroidal Anti-inflammatory Drug End: 025 take 1 tablet by mouth once daily aspirin 81 MG EC tablet Take 81 mg by mouth Daily 09/14/2024 Discontinued (Med list cleanup) baclofen 5 mg oral tablet (20 sources) gamma-Aminobutyric Acid-ergic Agonist Start: 022 End: take 1 tablet by mouth in the [...] th three times a day. bifidobacterium animalis [id number] unt / lactobacillus acidophilus [id number] unt oral capsule (20 sources) Start: Probiotic Product (Probiotic Daily) capsule 1 (one) time each day at the same time 10/03/2021 Active biotin 2.5 mg oral capsule (20 sources) Start: Biotin 2,500 mcg cap 05/07/2016 Active cephalexin 500 mg oral capsule (4 sources) Cephalosporin Antibacterial Start: End: take 1 capsule by mouth in the morning, then take 1 capsule by mouth in the evening, then take 1 capsule by mouth at bedtime cephalexin (Keflex) 500 MG capsule Indications: Folliculitis Take 1 capsule (500 mg) by mouth in the morning and 1 capsule (500 mg) in the evening and 1 capsule (500 mg) before bedtime. Do all this for 7 days. 21 capsule 08/12/2024 08/19/2024 Active clopidogrel 75 mg oral tablet (20 sources) P2Y12 Platelet Inhibitor Start: take 1 tablet by mouth once daily clopidogrel (PLAVIX) 75 mg tablet Take 1 tablet by mouth once daily. 90 tablet 07/30/2024 Active cyclobenzaprine hydrochloride 10 mg oral tablet (20 sources) Muscle Relaxant Start: End: take 1 tablet by mouth three times daily as needed for muscle spasms cyclobenzaprine (FLEXERIL) 10 mg tablet Indications: Muscle cramps , Nodular sclerosing Hodgkin's lymphoma, unspecified body region (HCC) TAKE 1 TABLET BY MOUTH THREE TIMES A DAY NEEDED FOR MUSCLE SPASM 90 tablet 2 10/12/2024 01/10/2025 Active Start: 07-08-2024 End: 10-06-2024 take 1 tablet by mouth three times daily as needed for muscle spasms cyclobenzaprine (FLEXERIL) 10 mg tablet Indications: Muscle cramps , Nodular sclerosing Hodgkin's lymphoma, unspecified body region (HCC) TAKE 1 TABLET BY MOUTH THREE TIMES A DAY NEEDED FOR MUSCLE SPASM 90 tablet 2 07/08/2024 10/06/2024 Active Start: 01-14-2024 End: 07-06-2024 take 1 tablet by mouth three times [...] capsule (20 sources) Proton Pump Inhibitor Start: 10-07-19 take 1 capsule by mouth once daily dexlansoprazole (Dexilant) [address] capsule Indications: Gastroesophageal reflux disease, unspecified whether esophagitis present Take 1 capsule (30 mg) by mouth Daily Do not crush or chew. 90 capsule 3 10/06/2024 Active Start: 01-07-2024 End: 10-05-2024 take 1 capsule by mouth once daily Dexlansoprazole (DEXILANT) 30 mg CpDM Take 1 capsule by mouth once daily. 07/30/2024 Active Start: 07-20-2019 End: 06-10-2023 take 1 capsule by mouth once daily Dexlansoprazole (DEXILANT) 30 mg CpDM Take 1 capsule by mouth once daily. 60 capsule 6 07/20/2019 06/10/2023 Discontinued Dexilant Active Comment on above: Take 1 capsule by mo [facility] once daily. doxycycline hyclate 100 mg oral [...] DULoxetine 30 mg delayed release oral capsule (20 sources) Serotonin and Norepinephrine Reuptake Inhibitor Start: End: take 1 capsule by mouth once daily DULoxetine (CYMBALTA) 30 mg capsule Take 1 capsule by mouth once daily. 90 capsule 07/30/2024 Active Start: 04-12-2021 End: 05-17-2021 take 1 capsule [...] 06/08/2024 Discontinued (Dose adjustment) Start: 09-30-2023 End: 07-30-2024 take 1 tablet by mouth once daily escitalopram oxalate (LEXAPRO) 10 mg tablet Take 1 tablet by mouth once daily. 90 tablet 12/19/2023 07/30/2024 Discontinued Start: 09-19-2023 End: 12-18-2023 take 0.5 tablet by mouth once daily escitalopram oxalate (LEXAPRO) 10 mg tablet Take 0.5 tablets by mouth once daily. 45 tablet 09/19/2023 Active estradiol 0.1 mg/ml vaginal cream (14 sources) Estrogen Start: 08-12-2024 estradiol (Est race) 0.1 MG/GM vaginal cream Indications: Hormone disorder , Dyspareunia, female , Vaginal dryness, menopausal 2g vaginal daily for 2 weeks, then 2 times weekly following initial 2 weeks 42.5 g 08/12/2024 Active fluconazole 100 mg oral tablet (3 sources) Azole Antifungal Start: 06-13-2023 End: 06-20-2023 take 1 tablet by mouth once daily fluconazole (DIFLUCAN) 100 mg tablet Indications: Oral thrush Take 1 tablet by mouth once daily for 7 days. 7 tablet 0 06/13/2023 06/20/2023 Active fluocinonide 0.5 mg/ml topical cream (20 sources) Corticosteroid Start: 08-10-2024 fluocinonide (Lidex) 0.05 % cream Indications: Dermatitis APPLY TO AFFECTED AREA TOPICALLY IN THE MORNING AND AT BEDTIME 60 g 08/10/2024 Active Start: 04-09-2024 End: 08-10-2024 fluocinonide (Lidex) 0.05 % cream Indications: Dermatitis Apply 1 application topically in the morning and 1 application before bedtime. 60 g 04/09/2024 08/10/2024 Discontinued Start: 01-19-2021 fluocinonide ( LIDEX) 0.05 % [...] take 1 puff(s) by inhalation once daily tbammnsacxv-pbjrvefms-scqstzzj (TRELEGY ELLIPTA) 200-62.5-25 mcg inhalation powder Indications: Dyspnea on exertion , Bronchitis Inhale 1 Puff as instructed once daily. 60 Each 3 08/23/2023 Active Start: 06-17-2023 End: 08-22-2023 take 1 puff(s) by inhalation once daily cyibztnvqax-rgxruflek-pxhckedz (TRELEGY ELLIPTA) 200-62.5-25 mcg inhalation powder Indications: Dyspnea on exertion , Bronchitis Inhale 1 Puff as instructed once daily. 60 Each 3 06/17/2023 08/22/2023 Discontinued Start: 06-17-2023 take 1 puff(s) by inhalation once daily uzzopepioln-xxphckpju-fxnhhjpk (TRELEGY ELLIPTA) 200-62.5-25 mcg inhalation powder Indications: Dyspnea on exertion , Bronchitis Inhale 1 Puff as instructed once daily. 60 Each 06/17/2023 Active gabapentin 300 mg oral capsule [...] bromide 0.042 mg/actuat metered dose nasal spray (20 sources) Anticholinergic Start: 04-08-19 End: 07-08-19 take [...] sprays before bedtime. 15 mL 11 04/08/2024 Active ivabradine 5 mg oral tablet (20 sources) Hyperpolarization-activ ated Cyclic Nucleotide-gated Channel Tyrone Start: 07-21-19 End: 07-21-19 take 1 tablet by mouth in the morning Ivabradine HCl 5 MG tablet Take 5 mg by mouth in the morning and 5 mg in the evening. 07/20/2024 07/20/2025 Active ketoconazole 20 mg/ml topical cream (20 sources) Azole Antifungal Start: 02-14-20 ketoconazole (NIZOral) 2 % cream Apply 1 application topically 1 (one) time each day at the same time 02/13/2022 Active Lactobac no.41/Bifidobact no.7 (PROBIOTIC-10 ORAL) [...] Levoxyl) 75 MCG tablet Indications: Acquired hypothyroidism Take 1 tablet (75 mcg) by [...] 1 tablet by jaleesa th once daily. lisinopril 5 mg oral tablet (20 sources) Angiotensin Converting Enzyme Inhibitor Start: take 1 tablet by mouth once daily lisinopril (ZESTRIL) 5 mg tablet Take 1 tablet by mouth once daily. 90 tablet 07/30/2024 Active LORazepam 0.5 mg oral tablet (20 sources) Benzodiazepine Start: take 1 tablet by mouth four times daily as needed for anxiety LORazepam (Ativan) 0.5 MG tablet Indications: Anxiety Take 1 tablet (0.5 mg) by mouth 4 (four) times a day as needed for anxiety 120 tablet 2 11/13/2024 Active Start: 12-11-2022 End: 11-13-2024 take 1 tablet by mouth four times daily as needed for anxiety LORazepam (Ativan) 0.5 MG tablet Indications: Anxiety Take 1 tablet (0.5 mg) by mouth 4 (four) times a day as needed for anxiety 120 tablet 2 08/13/2024 11/13/2024 Discontinued (Reorder) Start: 11-11-2022 End: 12-01-2022 take 1 tablet [...] 03/16/2020 03/15/2021 Discontinued (Course of therapy completed) 24 hr metoprolol succinate 100 mg extended release oral tablet (20 sources) beta-Adrenergic Tyrone Start: 07-30-2024 take 1 tablet by mouth once daily metoprolol succinate ER (TOPROL XL) 100 mg Take 1 tablet by mouth once daily. 90 tablet 07/30/2024 Active mirtazapine 15 mg oral tablet (20 sources) [...] 0 03/29/2023 04/03/2023 Active Nebulizer Accessories kit (15 sources) Start: 06-10-19 Nebulizer Accessories kit 1 kit every 6 months as needed. 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 90 tablet 10/27/2024 11/26/2024 Active Start: 01-14-2024 End: 07-25-2024 take 1 tablet [...] for pain for up to 30 days. phenazopyridine hydrochloride 200 mg oral tablet (1 source) Start: 023 take 1 tablet by mouth every eight [...] on above: Take 2 tablets by mo ut once daily. take 4 tablets by mo ut once daily for 3 days take 3 [...] above: Take 1 capsule by mo [facility] twice daily for 90 days. prochlorperazine 10 mg oral tablet (20 sources) Phenothiazine Start: End: take 1 tablet by mouth every six hours as needed for nausea and nausea and nausea prochlorperazine (Compazine) 10 MG tablet Indications: Nausea Take 1 tablet (10 mg) by mouth every 6 (six) hours if needed for nausea 30 tablet 2 09/03/2024 Active Start: 01-19-2021 End: 09-02-2021 take 1 [...] sources) Factor Xa Inhibitor Start: 12-14-2020 End: 09-28-2024 take 1 tablet by mouth once daily rivaroxaban (Xarelto) 10 MG tablet Indications: Hx of pulmonary embolus Take 1 tablet (10 mg) by mouth Daily 90 tablet 3 09/28/2024 Active take 1 tablet by mouth at mealti me rivaroxaban (Xarelto) 20 MG tablet Take 20 mg by mouth in the evening. Take with meals Take with food. 0 Active Xarelto Active Comment on above: Take 1 tablet by jaleesa th once daily. take 1 tablet by jaleesa th once daily rosuvastatin calcium 20 mg oral tablet (20 sources) HMG-CoA Reductase Inhibitor Start: take 1 tablet by mouth once daily rosuvastatin (CRESTOR) 20 mg tablet Take 1 tablet by mouth once daily. 90 tablet 07/30/2024 Active sodium chloride 30 mg/ml inhalation solution (20 sources) Start: sodium chloride (NEBUSAL) 3 % nebulizer solution [...] 4 mL via nebuliz er twice daily. spironolactone 25 mg oral tablet (20 sources) Aldosterone Antagonist Start: 07-31-19 take 0.5 tablet by mouth once daily spironolactone (ALDACTONE) 25 mg tablet Take 0.5 tablets by mouth once daily. 45 tablet 07/30/2024 Active Start: 07-20-2024 End: 07-20-2025 spironolactone (Aldactone) 2 5 MG tablet Take 12.5 mg by mouth in the morning. 07/20/2024 07/20/2025 Active 10 actuat tiotropium 0.0025 mg/actuat inhalation spray (20 sources) Anticholinergic Start: 06-13-2023 take 2 puff(s) by inhalation once daily [...] PUFFS DI RECTED ONCE DAILY traZODone hydrochloride 150 mg oral tablet (20 sources) Serotonin Reuptake Inhibitor Start: 11-28-2023 End: 12-24-2024 traZODone (Desyrel) 150 MG tablet Indications: Primary insomnia Take 1 tablet (150 mg) by mouth as needed at bedtime for sleep 90 tablet 3 06/18/2024 Active Start: 05-06-2023 End: 11-28-2023 take 1 tablet by mouth at bedtime traZODone (Desyrel) 50 MG tablet Indications: Primary insomnia take 1 tablet by mouth at bedtime if needed for 90 DAYS 90 tablet 3 05/06/2023 11/28/2023 Discontinued Start: 02-04-2023 End: 07-30-2024 take 1 tablet by mouth every twenty-four hours as needed traZODone (DESYREL) 100 mg tablet Take 100 mg by mouth at bedtime as needed. AT BEDTIME. 09/22/2023 07/30/2024 Discontinued End: 10-09-2023 take 2 tablets by mouth [...] inhaler (20 sources) Anticholinergic, beta2-Adrenergic Agonist Start: 09-03-19 End: 11-03-19 take 1 puff(s) by inhalation once daily ANORO ELLIPTA 62.5-25 mcg/actuation inhaler Indications: Bronchiectasis without complication (HCC) INHALE 1 PUFF ONCE DAILY DIRECTED 60 each 1 11/02/2024 Active Start: 02-24-2024 End: 09-02-2024 take 1 dose by inhalation once daily ANORO ELLIPTA 62.5-25 mcg/actuation inhaler INHALE 1 INHALATION INSTRUCTED ONCE DAILY. 60 each 1 06/25/2024 09/02/2024 Discontinued Start: 11-21-2023 End: 12-02-2023 take 1 dose by inhalation once daily ANORO ELLIPTA 62.5-25 mcg/actuation inhaler INHALE 1 INHALATION INSTRUCTED ONCE DAILY. 60 Each 1 12/02/2023 Active valACYclovir 1000 mg oral tablet (2 sources) Herpesvirus Nucleoside Analog DNA Polymerase Inhibitor, Herpes Simplex Virus Nucleoside Analog DNA Polymerase Inhibitor, Herpes Zoster Virus Nucleoside Analog DNA Polymerase Inhibitor Start: 09-14-2024 End: 09-21-2024 take 1 tablet by mouth in the morning, then take 1 tablet by mouth in the evening, then take 1 tablet by mouth at bedtime valACYclovir (Valtrex) 1 g tablet Indications: Herpes zoster without complication Take 1 tablet (1,000 mg) by mouth in the morning and 1 tablet (1,000 mg) in the evening and 1 tablet (1,000 mg) before bedtime. Do all this for 7 days. 21 tablet 09/14/2024 09/21/2024 Active Completed/Discontinued Medications Medication Drug Class(es) Dates Sig [...] tablet by jaleesa th twice a day amoxicillin 875 mg oral tablet (2 sources) Penicillin-class Antibacterial Start: take 1 tablet by mouth every twelve hours Amoxicillin 875 MG 1 tablet Orally every 12 hrs for 7 days Jan, Not-Taking/PRN atenolol 50 mg oral tablet (20 sources) beta-Adrenergic Tyrone Start: 8 End: take 1 tablet by mouth twice daily atenolol (TENORMIN) 50 mg tablet Indications: Tachycardia take 1 tablet by mouth twice a day 60 tablet 1 08/29/2017 07/30/2024 Discontinued Atenolol Active Comment on above: take 1 tablet by jaleesa th twice a day azelastine hydrochloride 0.137 mg/actuat metered dose nasal spray (20 sources) Histamine-1 Receptor Antagonist Start: 03-28-19 End: 07-11-19 take 1 spray(s) nasal route twice daily azelastine 0.1% nasal spray Use 1 [place] in each nostril two times a day. 30 mL 03/28/2023 2023 Discontinued Comment on above: Use 1 [place] in each nostril two times a day. [...] mg/ml injectable suspension (2 sources) Corticosteroid Start: 08-27-19 End: 08-27-19 24 betamethasone acetate-betamethasone sodium phosphate 6 mg injection (CELESTONE) chlorhexidine gluconate 40 mg/ml medicated liquid soap (20 sources) Start: 12-07-19 End: 07-20-19 23 chlorhexidine (HIBICLENS) 4 % external liquid In groin as a wash 473 mL 11 12/06/2020 07/19/2022 Discontinued Comment on above: In groin as a wash CHOLECALCIFEROL, VITAMIN D3, (VITAMIN D3 ORAL) (20 sources) End: 07-31-19 take 1000 [IU] by mouth once daily CHOLECALCIFEROL, VITAMIN D3, (VITAMIN D3 ORAL) Take 1,000 Units by mouth once daily. 07/30/2024 Discontinued take 1000 [IU] by mouth once clifton [...] topical lotion (20 sources) Lincosamide Antibacterial Start: 12-07-19 End: 04-24-19 Clindamycin Phosphate (CLEOCIN T) 1 % lotion [...] daily. 480 g 2 2023 10/09/2023 Discontinued diphenhydrAMINE-maa lox-lidocaine (BMX 1:1:1) 1:1:1 liqd (1 source) Start: 08-27-19 End: 03-15-19 diphenhydrAMINE-maal ox-lidocaine (BMX 1:1:1) 1:1:1 liqd Indications: [...] spray Indications: Acute non-recurrent pansinusitis Use 1 [place] in each nostril once daily. 11.1 mL [...] mg oral tablet (20 sources) Antihistamine Start: 022 End: take 1 tablet by mouth every [...] once daily. 1 Each 4 11/21/2023 Active pantoprazole 40 mg delayed release oral tablet (20 sources) Proton Pump Inhibitor Start: 05-22-2023 End: 07-30-2024 take 1 tablet by mouth once daily pantoprazole DR (PROTONIX) 40 mg tablet Take 1 tablet by mouth once daily. 90 tablet 1 05/22/2023 07/30/2024 Discontinued Comment on above: Take 1 tablet by [facility] once daily. perflutren lipid microspheres (DEFINITY) 1.1 mg/mL injection (to be provided with echo procedure) (1 source) Start: 11-04-2019 End: 03-15-2021 perflutren lipid microspheres (DEFINITY) 1.1 mg/mL injection [...] 10 mL injection (DEFINITY) (20 sources) Start: 12-27-2021 End: 03-28-2023 perflutren lipid microspheres 1.3 mL in NaCl (PF) 0.9% 10 mL injection (DEFINITY) tapentadol 50 mg oral tablet (4 sources) Opioid Agonist Start: 03-12-2021 End: 05-17-2021 take 1 tablet by mouth three times daily as needed tapentadol (NUCYNTA) 50 mg Indications: Chemotherapy-induced neuropathy (HCC) , Radiation induced neuropathy (HCC) , residential (current) use of opiate analgesic , Nodular [...] lymphoma of intrathoracic lymph nodes (HCC) , citrix architect (current) use of opiate analgesic 1 tab [...] Do not start before March 12, 2021. 24 hr tolterodine tartrate 2 mg extended release oral capsule (20 sources) Cholinergic Muscarinic Antagonist Start: 08-26-19 End: 08-26-19 take 1 capsule by mouth once daily tolterodine ER (DETROL LA) 2 mg 24 hr capsule Take 2 mg by mouth once daily. 08/26/2023 07/30/2024 Discontinued tretinoin 0.5 mg/ml topical cream (20 sources) [...] C No.3 (B COMPLEX PLUS VITAMIN C) 49-85-49-5-300 mg cap (20 sources) Start: 08-11-2019 End: 07-30-2024 Vitamin B Comp and C No.3 (B COMPLEX PLUS VITAMIN C) 36-97-20-5-300 mg cap Take 1 tablet by mouth once daily. 30 capsule 3 08/11/2019 07/30/2024 Discontinued Start: 08-11-2019 Vitamin B Comp and C No.3 (B COMPLEX PLUS VITAMIN C) 46-98-27-5-300 mg cap Take 1 tablet by mouth once daily. 30 capsule 3 08/11/2019 Active Comment on above: Take 1 tablet by jaleesa th once daily. Problems Active Problems Problem Classification Problem Date Documented Da te Episodic/Chronic Acute myocardial infarction (20 sources) Myocardial infarction; Translations: [Non-ST elevation (NSTEMI) myocardial infarction] Onset: 5 07-30-2024 Chronic Adjustment disorders (1 source) Adjustment disorder with anxious mood; Translations: [Adjustment disorder with anxiety] 04-23-2024 Chronic Allergic reactions (2 sources) Inflammatory dermatosis; Translations: [Dermatitis, unspecified] 04-09-2024 Episodic Anxiety disorders (20 sources) Anxiety; Translations: [Anxiety disorder, unspecified] Onset: 2 Chronic Asthma (20 sources) Asthma; Translations: [Unspecified asthma, uncomplicated] Onset: 3 08-13-2022 Chronic Cardiac dysrhythmias (20 sources) Inappropriate sinus tachycardia; Translations: [Inappropriate sinus tachycardia] Onset: 5 07-21-2024 Chronic Chronic obstructive pulmonary disease and bronchiectasis (20 sources) Simple chronic bronchitis; Translations: [Simple chronic bronchitis] Onset: 4 Chronic Chronic obstructive pulmonary disease and bronchiectasis (6 sources) Bronchitis, not specified as acute or chronic; Translations: [Bronchitis] Onset: 1 Resolved: 1 Episodic Complications of surgical procedures or medical care (4 sources) Menopausal symptom; Translations: [Symptomatic postprocedural ovarian failure] 08-12-2024 Chronic Congestive heart failure; nonhypertensive (20 sources) Acute systolic heart failure; Translations: [Acute systolic (congestive) heart failure] Onset: 5 07-21-2024 Chronic Coronary atherosclerosis and other heart disease (14 sources) Coronary arteriosclerosis; Translations: [Atherosclerotic heart disease of [place] coronary artery with unspecified angina pectoris] Onset: 5 07-30-2024 Chronic Disorders of lipid metabolism (20 sources) Mixed hyperlipidemia; Translations: [Mixed hyperlipidemia] Onset: 5 07-21-2024 Chronic Esophageal disorders (20 sources) Gastroesophageal reflux disease; Translations: [Gastro-esophageal reflux disease without esophagitis] Onset: 6 Resolved: 6 08-23-2022 Chronic Essential hypertension (2 sources) Essential (primary) hypertension; Translations: [Essential (primary) hypertension] Onset: 5 Chronic Headache; including migraine (3 sources) Daily headache; Translations: [Daily headache] 11-28-2023 Episodic Headache; including migraine (4 sources) Headache; including migraine; Translations: [HEADACHE UNSPECIFIED] Onset: 3 Heart valve disorders (3 sources) Mitral valve regurgitation; Translations: [Nonrheumatic mitral (valve) insufficiency] Onset: 5 01-21-2024 Chronic Hodgkin`s disease (20 sources) Hodgkin's [...] care] Episodic Other aftercare (1 source) Other food counselor (current) drug therapy; Translations: [OTH PRISON CURRENT DRUG THERAPY] Onset: Episodic Other aftercare (17 sources) Under care of palliative care physician; Translations: [Encounter for palliative care] Episodic Other and ill-defined heart disease (1 source) Heart disease; Translations: [Heart disease, unspecified] 08-08-2024 Chronic Other and unspecified benign neoplasm (1 source) [...] Translations: [Unspecified adrenocortical insufficiency] 01-28-2023 Chronic Other endocrine disorders (4 sources) Disorder of endocrine system; Translations: [Endocrine disorder, unspecified] 08-12-2024 Episodic Other female genital disorders (2 sources) Pain in female genitalia on intercourse; Translations: [Unspecified dyspareunia] 08-12-2024 Chronic Other gastrointestinal disorders (6 sources) Dysphagia; [...] pain] 08-12-2023 Chronic Other nervous system disorders (16 sources) Chronic pain syndrome; Translations: [Chronic pain [...] Acne vulgaris; Translations: [Acne vulgaris] Episodic Other skin disorders (2 sources) Folliculitis; Translations: [Follicular disorder, unspecified] 08-12-2024 Episodic Other upper respiratory disease (4 sources) [...] transplant; Translations: [Bone marrow transplant status] Onset: Chronic Residual codes; unclassified (1 source) Obstructive sleep apnea syndrome; Translations: [Obstructive sleep apnea (adult) (pediatric)] 05-20-2024 Chronic Respiratory failure; insufficiency; arrest (adult) (3 [...] Chronic Unclassified (20 sources) SUMMARY Onset: 4 02-13-2021 Unclassified (1 source) NO SHOW Unclassified (1 source) Lab test negative for COVID-19 virus; Translations: [Lab test negative for COVID-19 virus] Onset: 4 Unclassified (1 source) Inappropriate sinus tachycardia, so stated; Translations: [Inappropriate sinus tachycardia, so stated] Onset: 5 Unclassified (1 source) Subacute cough; Translations: [Subacute cough] Onset: 5 Urinary tract infections (1 source) Acute cystitis without hematuria Episodic Viral infection (9 sources) Disease caused by 2019-nCoV; Translations: [COVID-19] Onset: 5 03-29-2023 Episodic Past or Other Problems Problem [...] unspecified] Onset: 4 Resolved: 6 08-23-2022 Episodic Coronary atherosclerosis and other heart disease (2 sources) Presence of coronary angioplasty implant and graft; Translations: [Presence of coronary angioplasty implant and graft] Onset: 5 Episodic Diabetes mellitus with complications (20 sources) [...] Onset: 4 Resolved: 6 Episodic Other aftercare (20 sources) Drug therapy finding; Translations: [citrix architect (current) use of opiate analgesic] Onset: 3 Episodic Other aftercare (1 source) residential (current) use of anticoagulants; Translations: [PRISON CURRNT USE ANTICOAGULANTS] Onset: 2 Episodic Other aftercare (2 sources) citrix architect (current) use of opiate analgesic; Translations: [Opioid [...] Long-term current use of benzodiazepine; Translations: [Other fpc (current) drug therapy] Onset: 4 10-10-2023 Episodic Other aftercare (20 sources) Administrative statuses; Translations: [Encounter for palliative [...] Resolved: 6 02-13-2021 Episodic Other gastrointestinal disorders (1 source) Dysphagia, unspecified; Translations: [Dysphagia, unspecified type] Onset: [...] Resolved: 6 12-26-2015 Episodic Other liver diseases (19 sources) Increased creatine kinase level; Translations: [Abnormal [...] Translations: [Pulmonary infiltrates] Onset: 4 Episodic Other lower respiratory disease (2 sources) Hemoptysis; Translations: [Hemoptysis] Onset: 5 Episodic Other nervous system disorders (20 sources) [...] Translations: [Reflux] Onset: 4 Resolved: 6 02-13-2021 Unclassified (1 source) Inappropriate sinus tachycardia, so stated; Translations: [Inappropriate sinus tachycardia, so stated] Onset: 5 Results Test Name Value Interpretation Reference Range Facility Office Visiton 11-09-2024 Follow-up visit [id number] Celso Weller 1980 F Date Provider Department Center 11/09/2024 TEMO TERRY [facility] [place] [facility] Family History Problem Relation Age of Onset Heart attack Maternal Grandfather Heart attack Paternal Grandfather Family Status - Relation Status Age at Mother Alive Father Alive Maternal Grandfather Paternal Grandfather Level of Service:63830 [place] OFFICE/OUTPATIENT ESTABLISHED MOD MDM 30 MIN [facility] 11-05-2024 36 Please have patient schedule appointment erich with PCP [facility] Refillon 11-05-2024 Refill [id number] JaneeCelso Pacheco 1980 F Date Provider Department Center 11/05/2024 TONY SMITH [facility] Family History Problem Relation Age of Onset Heart attack Maternal Grandfather Heart attack Paternal Grandfather Family Status - Relation Status Age at Mother Alive Father Alive Maternal Grandfather Paternal Grandfather Reason for Visit and Comments: Med Refill [[id number]] [facility] Refill [id number] JaneeCelso R 1980 Date Provider Department [place] 11/05/[address] [facility] INT MED Comprehensiv Family History Problem Relation Age of Onset Heart attack Maternal Grandfather Heart attack Paternal Grandfather Family Status - Relation Status Age at Mother Alive Father Alive Maternal Grandfather Paternal Grandfather Reason for Visit and Comments: Med Refill [[id number]] [facility] 11-03-2024 36 Patient not under my care. Defer to PCP [facility] [place] 10-31-2024 Refill [id number] DevenbonnieCelso Pacheco 1980 Date Provider Department [facility] INT MED Comprehensiv Family History Problem Relation Age of Onset Heart attack Maternal Grandfather Heart attack Paternal Grandfather Family Status - Relation Status Age at Mother Alive Father Alive Maternal Grandfather Paternal Grandfather Reason for Visit and Comments: Med Refill [[id number]] [facility] 10-27-2024 38 MD Sera Langford MA Please have her reduce spironolactone to 12.5 mg every other day due to elevated potassium. Spoke to patient advised patient of her lab results per Dr. Hdz's request, reduce spironolactone. Patient verbalized understanding and agreed with plan of care [facility] 38 MD Sera Langford MA Please have her reduce spironolactone to 12.5 mg every other day due to elevated potassium. Spoke to patient advised patient of her high potassium per Dr. Hdz's request. Patient verbalized understanding and agreed with the plan of care. [facility] Orders Onlyon 10-27-2024 Orders Only [id number] Celso Weller 1980 F Date Provider Department [place] 10/27/2024 [id number], HISTORICAL CARD [facility] Family History Problem Relation Age of Onset Heart attack Maternal Grandfather Heart attack Paternal Grandfather Family Status - Relation Status Age at Mother Alive Father Alive Maternal Grandfather Paternal Grandfather [facility] ALL T3 FREEon 08-24-2024 Free T3 [Mass/Vol] 3.31 pg/mL 2.18 - 3. 98 pg/mL [facility] ALL THYROID STIM HORMONEon 0 08-24-2024 TSH Qn 0.537 m[IU]/L [facility] ALL THYROXINE (T4)on 025 T4 [Mass/Vol] 10.2 ug/dL 4.80 - 13.90 ug/dL [facility] No Panel Informationon 08-24 [facility] TBH GLUCOSE BLOODon 08-25-19 25 Glucose [Mass/Vol] 100 mg/dL 74 - 106 mg/dL [facility] IGP,APTIMA HPV,AGE GDLNon AGE GDLN ACOG TESTING Note . [facility] Comment on above: TESTS RESULT FLAG UN ITS REF RANGE LAB Clinician Provided Cytology Information Source.............Cervix;Endocervix No. of containers..01 ThinPrep Vial Age Algo ACOG Jackie... 30-65 01 FLAG LEGEND: L-Low Normal,H-High Normal,LL-Alert Low,HH-Alert High <-Panic Low,>-Panic High,A-Abnormal,AA-Critical Abnormal Performed at: 01 =[address] [address] Tahmina Vinson MD, HPV APTIMA Negative Negative [facility] Comment on above: This nucleic acid am plification test detects fourteen high- risk HPV types (16,18,31,33,35,39,45,51,52,56,58,59,66,68) without differentiation. Performed at: =[address] [id number] Program Management Manager: Tahmina Vinson MD, Phone: [phone] Performed at: [address] [id number] Program Management Manager: Tahmina Vinson MD, Phone: [phone] IGP, APTIMA HPV, RFX 16/18,45 Note . [facility] Comment on above: TESTS RESULT FLAG UN ITS REF RANGE LAB DIAGNOSIS: 02 NEGATIVE FOR INTRAEPITHELIAL LESION OR MALIGNANCY. Specimen adequacy: 02 Satisfactory for evaluation. Endocervical and/or squamous metaplastic cells (endocervical component) are present. Performed by: 02 Keven Chamorro, Medical Records Library Professor ([facility]) . 02 Note: Note 02 The [...] Low,>-Panic High,A-Abnormal,AA-Critical Abnormal Performed at: [address] [address] Tahmina Vinson MD, BRUSH-SPATULA CERVIX ENDOCERVIX [facility] CBC W Auto Differential pane l (Bld)on 08-03-2024 Basophils (Bld) [#/Vol] [facility] Differential cell count method Nom (Bld) Auto [facility] Eosinophils (Bld) [#/Vol] 0.59 10*3/uL High [facility] Immature granulocytes (Bld) [#/Vol] [facility] Immature granulocytes/100 WBC (Bld) 0.3 % [facility] Lymphocytes (Bld) [#/Vol] 1.6 10*3/uL [facility] Monocytes (Bld) [#/Vol] 0.6 10*3/uL [facility] Neutrophils (Bld) [#/Vol] 4.52 10*3/uL [facility] Nucleated RBC (Bld) [#/Vol] [facility] Nucleated RBC/100 WBC (Bld) [Ratio] 0 % /100 WBC [facility] Platelet mean volume (Bld) [Entitic vol] 9.3 fL 9.0 - 12.7 fL [facility] Platelets (Bld) [#/Vol] 278 10*3/uL [facility] WBC (Bld) [#/Vol] 7.35 10*3/uL [facility] CBC W AUTO DIFF BLDon [facility] BASOPHILS # BLD AUTO <0.03 [facility] DIFFERENTIAL METHOD BLD Auto [facility] EOSINOPHIL # BLD AUTO 0.59 High [facility] LYMPHOCYTES # BLD AUTO 1.6 [facility] MONOCYTES # BLD AUTO 0.6 [facility] NEUTROPHILS # BLD AUTO 4.52 [facility] NRBC # BLD AUTO <0.01 [facility] NRBC/100 WBC BLD-RTO 0 /100 WBC [facility] PLATELET # BLD AUTO 278 [facility] PMV BLD AUTO 9.3 fL 9.0 - 12.7 fL [facility] WBC # BLD AUTO 7.35 [facility] IMM GRANULOCYTES # BLD AUTO <0.03 [facility] IMM GRANULOCYTES/LEUK NFR BLD AUTO 0.3 % [facility] Specimen Type: BLOOD SPECIMEN Ordering Facility: [facility] Address: [address] [place] [address] Original Ordering Provider: RUPERTO CHARLES [facility] SPECIMEN VALIDITY, URINE on 08-03-2024 [facility] CREATININE,URINE 135.6 mg/dL 20.0 - 300.0 mg/dL [facility]/L [facility] OXIDANTS,URINE <38 [facility] 5.6 4.5 - 8.0 [facility] SPEC GRAVITY,UR 1.024 1.003 - 1.035 [facility] SPECIMEN VALIDITY QUALITY Specimen quality results within acceptable limits [facility] Comprehensive metabolic 2000 panelOrdered By: Saran Johnson on 08-03-2024 Albumin [Mass/Vol] 4.5 g/dL 3.9 - 4.9 g/dL [facility] ALP [Catalytic activity/Vol] 67 U/L 34 - 123 U/L [facility] ALT [Catalytic activity/Vol] 45 U/L High 7 - 38 U/L [facility] Anion gap [Moles/Vol] 11 mmol/L 8 - 15 mmol/L [facility] AST [Catalytic activity/Vol] 40 U/L High 13 - 35 U/L [facility] Bilirubin [Mass/Vol] 0.4 mg/dL 0.2 - 1.3 mg/dL [facility] Calcium [Mass/Vol] 9.6 mg/dL 8.5 - 10. 2 mg/dL [facility] Chloride [Moles/Vol] 103 mmol/L 98 - 107 mmol/L [facility] CO2 [Moles/Vol] 27 mmol/L 22 - 30 mmol/L [facility] Creatinine [Mass/Vol] 0.62 mg/dL 0.58 - 0.96 mg/dL [facility] GFR/1.73 sq M.predicted among non-blacks MDRD (S/P/Bld) [Vol rate/Area] 114 mL/min/{1.73_m2} - PINF [facility] Comment on above: Estimated Glomerular Filtration [...] not accurately reflect actual GFR. Glucose [Mass/Vol] 149 mg/dL High 74 - 99 mg/dL [facility] Comment on above: The [place] Diabete s Association (ADA) provides guidance for [...] Standards of Medical Care in Diabetes 2016, [place] Diabetes Association. Diabetes Care. 2016.39(Suppl 1). Interpretation and review of laboratory results Abnormal [facility] Potassium [Moles/Vol] 4.5 mmol/L 3.7 - 5.1 mmol/L [facility] Protein [Mass/Vol] 6.7 g/dL 6.3 - 8.0 g/dL [facility] Sodium [Moles/Vol] 141 mmol/L 136 - 144 mmol/L [facility] Urea nitrogen [Mass/Vol] 10 mg/dL 7 - 21 mg/dL [facility] ESR Westergren method (Bld) [Velocity]on 08-03-2024 ESR (Bld) [Velocity] 2 mm/h [facility] Interpretation and review of laboratory results Normal [facility] - Hematology and Cell countson 08-03-2024 Basophils/100 WBC (Bld) 0.3 % [facility] Eosinophils/100 WBC (Bld) 8 % [facility] Erythrocyte distribution width (RBC) [Ratio] 12.9 % 11.5 - 15.0 % [facility] Hematocrit (Bld) [Volume fraction] 43.6 % 36.0 - 46.0 % [facility] Hemoglobin (Bld) [Mass/Vol] 14.3 g/dL 11.5 - 15.5 g/dL [facility] Lymphocytes/100 WBC (Bld) 21.8 % [facility] MCH (RBC) [Entitic mass] 30.8 pg 26.0 - 34.0 pg [facility] MCHC (RBC) [Mass/Vol] 32.8 g/dL 30.5 - 36.0 g/dL [facility] MCV (RBC) [Entitic vol] 94 fL 80.0 - 100.0 fL [facility] Monocytes/100 WBC (Bld) 8.2 % [facility] Neutrophils/100 WBC (Bld) 61.4 % [facility] RBC (Bld) [#/Vol] 4.64 10*6/uL 3.90 - 5.2 0 m/uL [facility] No Panel Informationon 08-03 Specimen Type: URINE SPECIMEN Ordering Facility: [facility] Address: [address] [id number] Original Ordering Provider: IRENE CHARLES [facility] Interpretation and review of laboratory results Abnormal [facility] QUANT TOX PANELon 08-03-2024 CARBOXYTHC UR-MCNC <10 NINF - 10 ng/mL [facility] Comment on above: 50-Qjy-8-carboxy-tet rahydrocannabinol (igmza-4-oixgnci-THC) is a metabolite of ddajc-0-nswybbtaenhjpgbouzjn (THC). This test does not differentiate between delta-8 or delta-9 carboxy-THC. [facility] 6MAM UR-MCNC <5 NINF - 5 ng/mL [facility] Comment on above: 6-Monoacetylmorphine is a metabolite of heroin. [facility] AMPHET UR CFM-MCNC <25 NINF - 25 ng/mL [facility] Comment on above: Methylphenidate does not contain or metabolize to amphetamine. [facility] BUPRENORPHINE UR-MCNC <5 NINF - 5 ng/mL [facility] Comment on above: Patients using trans dermal formulations of buprenorphine may yield undetectable buprenorphine and norbuprenorphine urine concentrations. [facility] BZE UR CFM-MCNC <25 NINF - 2 5 ng/mL [facility] Comment on above: Benzoylecgonine is a metabolite of cocaine. [facility] CODEINE UR CFM-MCNC <25 NINF - 25 ng/mL [facility] EDDP UR CFM-MCNC <25 NINF - 25 ng/mL [facility] Comment on above: 6-Mtyuypzzjh-6,5-dim ethyl-3,3-diphenylpyrrolidine (EDDP) is a metabolite of methadone. [facility] FENTANYL UR CFM-MCNC <1 NINF - 1 ng/mL [facility] HYDROCODONE UR CFM-MCNC <25 NINF - 25 ng/mL [facility] HYDROMORPHONE UR CFM-MCNC <25 NINF - 25 ng/mL [facility] METHADONE UR CFM-MCNC <25 NINF - 25 ng/mL [facility] METHAMPHET UR CFM-MCNC <25 NINF - 25 ng/mL [facility] MORPHINE UR CFM-MCNC <25 NINF - 25 ng/mL [facility] NORBUPRENORPHINE UR-MCNC <10 NINF - 10 ng/mL [facility] Comment on above: Norbuprenorphine is a metabolite of buprenorphine. Patients using transdermal formulations of buprenorphine may yield undetectable buprenorphine and norbuprenorphine urine concentrations. [facility] NORFENTANYL UR CFM-MCNC <1 NINF - 1 ng/mL [facility] Comment on above: Norfentanyl is a met abolite of fentanyl. [facility] NORTRAMADOL UR-MCNC <25 NINF - 25 ng/mL [facility] Comment on above: O-desmethyltramadol is a metabolite of tramadol. [facility] OXYCODONE UR CFM-MCNC 4599 ng/mL High NINF - 25 ng/mL [facility] Comment on above: Presence of oxycodon e is consistent with use of an oxycodone-containing drug. Oxycodone is metabolized to noroxycodone and oxymorphone. [facility] OXYMORPHONE UR CFM-MCNC 2592 ng/mL High NINF - 25 ng/mL [facility] Comment on above: Presence of oxymorph one is consistent with use of an oxymorphone-containing drug or by oxycodone metabolism. Oxymorphone is metabolized to noroxymorphone. [facility] TRAMADOL UR CFM-MCNC <25 NINF - 25 ng/mL [facility] Interpretation and review of laboratory results Abnormal [facility] MDA, UR <25 NINF - 25 ng/mL [facility] Comment on above: 3,4 Methylenedioxyam phetamine is also known as MDA. MDEA, UR <25 NINF - 25 ng/mL [facility] Comment on above: 3,4 Methylenedioxy-N -ethylamphetamine is also known as MDEA. MDMA, UR <25 NINF - 25 ng/mL [facility] Comment on above: 3,4-Methylenedioxyme thamphetamine is also known as MDMA. NORHYDROCODONE, UR <25 NINF - 25 ng/mL [facility] Comment on above: Norhydrocodone is a metabolite of hydrocodone. NOROXYCODONE, UR 3678 ng/mL High NINF - 25 ng/mL [facility] Comment on above: Noroxycodone is a me tabolite of oxycodone. Presence of noroxycodone is consistent with use of a oxycodone-containing drug. Noroxycodone is metabolized to noroxymorphone. NOROXYMORPHONE, UR 381 ng/mL High NINF - 25 ng/mL [facility] Comment on above: Noroxymorphone is a metabolite of oxymorphone and oxycodone and a minor metabolite of naltrexone and naloxone. Presence of noroxymorphone is consistent with use of an oxymorphone-containing drug or a drug that metabolizes to oxymorphone or noroxymorphone. NOTE, UR TOXICOLOGY PANEL [facility] Comment on above: For medical purposes only. Not valid for legal or forensic purposes. This test was developed, and its performance characteristics determined by the [facility] Department of Pathology and Laboratory Medicine. It has not been cleared or approved by the FDA. The [facility] Department of Pathology and Laboratory Medicine is regulated under CLIA as qualified to perform high-complexity testing. This test is used for clinical purposes. It should not be regarded as investigational or for research. PCP UR CFM-MCNC <10 NINF - 10 ng/mL [facility] Comment on above: Phencyclidine is als o known as PCP. PHENTERMINE, UR <25 NINF - 25 ng/mL [facility] Office Visiton 07-20-2024 Follow-up visit [id number] Celso Weller 1980 F Date Provider Department [place] 07/20/2024 TEMO TERRY [facility] Family History Problem Relation Age of Onset Heart attack Maternal Grandfather Heart attack Paternal Grandfather Family Status - Relation Status Age at Mother Alive Father Alive Maternal Grandfather Paternal Grandfather Level of Service:95834 [place] OFFICE/OUTPATIENT ESTABLISHED MOD MDM 30 MIN Normal [facility] Orders Onlyon 07-17-2024 Orders Only [id number] Celso Weller 1980 F Date Provider Department Center 07/17/2024 [id number], HISTORICAL CARD [facility] No family history on file Normal [facility] 30on 07-09-2024 30 The patient is Moder ately Stable - Low risk of patient condition declining or worsening The patient's goals for the shift include discharge The clinical goals for the shift include stable vitals, safety Normal [facility] 30 The patient is Moder ately Stable - Low risk of patient condition declining or worsening The patient's goals for the shift include discharge The clinical goals for the shift include stable vitals, safety Problem: Pain - Adult Goal: Verbalizes/displays adequate comfort level or baseline comfort level Outcome: Progressing Problem: Safety - Adult Goal: Free from fall injury Outcome: Progressing Problem: Chronic Conditions and Co-morbidities Goal: Patient's chronic conditions and co-morbidity symptoms are monitored and maintained or improved Outcome: Progressing Normal [facility] BASIC METABOLIC PANELon 05-2 Anion gap [Moles/Vol] 10 mmol/L Normal 7-20 [facility] Comment on above: Performed By: #### L [id number] #### [facility] ([facility]) [address] [place] [address] Calcium [Mass/Vol] 9.3 mg/dL Normal 8.6-10.3 [facility] Comment on above: Performed By: #### L [id number] #### [facility] ([facility]) [address] [place] [address] Chloride [Moles/Vol] 101 mmol/L Normal 98-107 [facility] Comment on above: Performed By: #### L [id number] #### [facility] ([facility]) [address] [place] [address] CO2 [Moles/Vol] 31 mmol/L Normal 21-31 [facility] Comment on above: Performed By: #### L [id number] #### [facility] ([facility]) [address] [place] [address] Creatinine [Mass/Vol] 0.60 mg/dL Normal 0.60-1.20 [facility] Comment on above: Performed By: #### L [id number] #### [facility] ([facility]) [address] [place] [address] GLOMERULAR FILTRATION RATE ML/MIN/1.73 SQ M.PREDICTED 115.6 mL/min/1.73m*2 Normal >60.0 [facility] Comment on above: Result Comment: The [facility]???s estimated glomerular filtration rate (eGFR) will no longer include consideration of race in its calculation. The National Kidney Foundation???s eGFR Task Force developed new recommendations for [...] disproportionately affect any one group of individuals. Performed By: #### L [id number] #### [facility] ([facility]) [address] [place] [address] Glucose [Mass/Vol] 158 mg/dL High 70-100 [facility] Comment on above: Performed By: #### L [id number] #### [facility] ([facility]) [address] [place] [address] Potassium [Moles/Vol] 4.3 mmol/L Normal 3.5-5.1 [facility] Comment on above: Performed By: #### L [id number] #### [facility] ([facility]) [address] [place] [address] Sodium [Moles/Vol] 138 mmol/L Normal 136-145 [facility] Comment on above: Performed By: #### L [id number] #### [facility] ([facility]) [address] [place] [address] Urea nitrogen [Mass/Vol] 10 mg/dL Normal 7-25 [facility] Comment on above: Performed By: #### L [id number] #### [facility] ([facility]) [address] [place] [address] UREA NITROGEN/CREATININE (MASS RATIO) IN SER/PLAS 16.7 Normal [facility] Comment on above: Performed By: #### L [id number] #### [facility] ([facility]) [address] [place] [address] CBCon 07-09-2024 Erythrocyte distribution width (RBC) [Ratio] 12.7 % Normal 11.5-15.0 [facility] Comment on above: Performed By: #### L [id number] #### [facility] [address] [place] [address] ERYTHROCYTE MEAN CORPUSCULAR HEMOGLOBIN CONCENTRATION (G/DL) BY AUTOMATED 32.9 g/dL Normal 32.0-35.0 [facility] Comment on above: Performed By: #### L [id number] #### [facility] [address] [place] [address] Hematocrit (Bld) [Volume fraction] 43.5 % Normal 36.0-45.0 [facility] Comment on above: Performed By: #### L [id number] #### [facility] ([facility]) [address] [place] [address] Hemoglobin (Bld) [Mass/Vol] 14.3 g/dL Normal 12.0-15.0 [facility] Comment on above: Performed By: #### L [id number] #### [facility] ([facility]) [address] [place] [address] MCH (RBC) [Entitic mass] 31.0 pg Normal 27.0-33.0 [facility] Comment on above: Performed By: #### L [id number] #### [facility] ([facility]) [address] [place] [address] MCV (RBC) [Entitic vol] 94.2 fL Normal 82.0-98.0 [facility] Comment on above: Performed By: #### L [id number] #### [facility] ([facility]) [address] [place] [address] PLATELETS (10*3/UL) IN BLOOD AUTOMATED COUNT 320 10*3/uL Normal 150-400 [facility] Comment on above: Performed By: #### L [id number] #### [facility] ([facility]) [address] [address] RBC (Bld) [#/Vol] 4.62 10*6/uL Normal 3.80-5.00 [facility] Comment on above: Performed By: #### L [id number] #### [facility] [address] [place] [address] WBC (Bld) [#/Vol] 14.54 10*3/uL High 4.00-10.60 [facility] Comment on above: Performed By: #### L [id number] #### [facility] ([facility]) [address] [place] [address] CTA CHEST W IV CONTRASTon CTA CHEST W IV CONTRAST CTA CHEST W IV CONTRAST 07/09/2024 2:27 [...] degenerative changes. Mild right convex thoracic scoliosis. IMPRESSION: 1. No CT evidence of pulmonary embolism. 2. Left pleural effusion and small pericardial effusion. 3. Bilateral groundglass infiltrates with more focal infiltrate in the left apex. All CT scans at this facility use dose modulation, iterative reconstruction, and/or weight based dosing when appropriate to reduce radiation dose to as low as reasonably achievable. Electronically signed: Jhonny Banda. Normal [facility] 30on 07-08-2024 30 The patient is Moder ately Stable - Low risk of patient condition declining or worsening The patient's goals for the shift include comfort The clinical goals for the shift include VSS Problem: Pain - Adult Goal: Verbalizes/displays adequate comfort level or baseline comfort level Outcome: Progressing Flowsheets (Taken 07/08/2024 1222 by Sweetie Alexander RN) Verbalizes/displays adequate comfort level or baseline comfort level: Encourage patient to monitor pain and request assistance Assess pain using appropriate pain scale Problem: Safety - Adult Goal: Free from fall injury Outcome: Progressing Flowsheets (Taken 07/08/2024 0805 by Sweetie Alexander RN) Free from fall injury: Assess patient frequently for physical needs Identify cognitive and physical deficits and behaviors that affect risk of falls [facility] fall precautions as indicated by assessment Problem: Discharge Planning Goal: Discharge to home or other facility with appropriate resources Outcome: Progressing Flowsheets (Taken 07/08/2024804 by Sweetie Alexander RN) Discharge to home or other facility with appropriate resources: Identify barriers to discharge with patient and caregiver Arrange for needed discharge resources and transportation as appropriate Identify discharge learning needs (meds, wound care, etc) Problem: Chronic Conditions and Co-morbidities Goal: Patient's chronic conditions and co-morbidity symptoms are monitored and maintained or improved Outcome: Progressing Flowsheets (Taken 07/08/2024804 by Sweetie Alexander RN) Care Plan - Patient's Chronic Conditions and Co-Morbidity Symptoms are Monitored and Maintained or Improved: Monitor and assess patient's chronic conditions and comorbid symptoms for stability, deterioration, or improvement Collaborate with multidisciplinary team to address chronic and comorbid conditions and prevent exacerbation or deterioration Normal [facility] 30 Problem: Pain - Adul t Goal: Verbalizes/displays adequate comfort level or baseline comfort level Outcome: Progressing Flowsheets (Taken 07/08/2024813) Verbalizes/displays adequate comfort level or baseline comfort level: Encourage patient to monitor pain and request assistance Assess pain using appropriate pain scale Administer analgesics based on type and severity of pain and evaluate response Problem: Safety - Adult Goal: Free from fall injury Outcome: Progressing Problem: Discharge Planning Goal: Discharge to home or other facility with appropriate resources Outcome: Progressing Flowsheets (Taken 07/08/2024804) Discharge to home or other facility with appropriate resources: Identify barriers to discharge with patient and caregiver Arrange for needed discharge resources and transportation as appropriate Identify discharge learning needs (meds, wound care, etc) Problem: Chronic Conditions and Co-morbidities Goal: Patient's chronic conditions and co-morbidity symptoms are monitored and maintained or improved Outcome: Progressing Flowsheets (Taken 07/08/2024804) Care Plan - Patient's Chronic Conditions and Co-Morbidity Symptoms are Monitored and Maintained or Improved: Monitor and assess patient's chronic conditions and comorbid symptoms for stability, deterioration, or improvement Collaborate with multidisciplinary team to address chronic and comorbid conditions and prevent exacerbation or deterioration The patient is Moderately Stable - Low risk of patient condition declining or worsening The patient's goals for the shift include rest, comfort The clinical goals for the shift include VSS, rest, comfort Over the shift, the patient did not make progress toward the following goals. Normal [facility] ANTI-XA (HEPARIN LEVEL)on HEPARIN UNFRACTIONATED (U/ML) IN PPP BY CHROMOGENIC METHOD 0.11 IU/mL Invalid Interpretation Code 0.3-0.7 [facility] Comment on above: Order Comment: Check anti-Xa level every 6 hours while on heparin infusion, or per protocol. Result Comment: [place] roxaban and Apixaban will interfere with the anti Xa assay used to monitor UFH and LMWH. Performed By: #### L [id number] #### [facility] ([facility]) [address] [place] [address] HEPARIN UNFRACTIONATED (U/ML) IN PPP BY CHROMOGENIC METHOD 0.65 IU/mL Normal 0.3-0.7 [facility] Comment on above: Order Comment: Check anti-Xa level every 6 hours while on heparin infusion, or per protocol. Result Comment: [place] roxaban and Apixaban will interfere with the anti Xa assay used to monitor UFH and LMWH. Performed By: #### L [id number] #### [facility] ([facility]) [address] [place] [address] HEPARIN UNFRACTIONATED (U/ML) IN PPP BY CHROMOGENIC METHOD >1.00 Critically high 0.3-0.7 [facility] Comment on above: Performed By: #### L [id number] #### [facility] ([facility]) [address] [place] [address] CBCon 07-08-2024 Erythrocyte distribution width (RBC) [Ratio] 13.3 % Normal 11.5-15.0 [facility] Comment on above: Performed By: #### L [id number] #### [facility] ([facility]) [address] [place] [address] ERYTHROCYTE MEAN CORPUSCULAR HEMOGLOBIN CONCENTRATION (G/DL) BY AUTOMATED 33.0 g/dL Normal 32.0-35.0 [facility] Comment on above: Performed By: #### L [id number] #### [facility] ([facility]) [address] [place] [address] Hematocrit (Bld) [Volume fraction] 41.2 % Normal 36.0-45.0 [facility] Comment on above: Performed By: #### L [id number] #### [facility] [address] [place] [address] Hemoglobin (Bld) [Mass/Vol] 13.6 g/dL Normal 12.0-15.0 [facility] Comment on above: Performed By: #### L [id number] #### [facility] ([facility]) [address] [place] [address] MCH (RBC) [Entitic mass] 31.4 pg Normal 27.0-33.0 [facility] Comment on above: Performed By: #### L [id number] #### [facility] ([facility]) [address] [place] [address] MCV (RBC) [Entitic vol] 95.2 fL Normal 82.0-98.0 [facility] Comment on above: Performed By: #### L [id number] #### [facility] ([facility]) [address] [place] [address] PLATELETS (10*3/UL) IN BLOOD AUTOMATED COUNT 286 10*3/uL Normal 150-400 [facility] Comment on above: Performed By: #### L [id number] #### [facility] ([facility]) [address] [place] [address] RBC (Bld) [#/Vol] 4.33 10*6/uL Normal 3.80-5.00 [facility] Comment on above: Performed By: #### L [id number] #### [facility] [address] [place] [address] WBC (Bld) [#/Vol] 14.26 10*3/uL High 4.00-10.60 [facility] Comment on above: Performed By: #### L [id number] #### [facility] [address] [place] [address] HEPATIC FUNCTION PANELon Albumin [Mass/Vol] 3.8 g/dL Normal 3.5-5.7 [facility] Comment on above: Performed By: #### L [id number] #### [facility] ([facility]) [address] [place] [address] ALP [Catalytic activity/Vol] 49 U/L Normal 34-104 [facility] Comment on above: Performed By: #### L [id number] #### [facility] ([facility]) [address] [place] [address] ALT [Catalytic activity/Vol] 27 U/L Normal 7-52 [facility] Comment on above: Performed By: #### L [id number] #### [facility] ([facility]) [address] [place] [address] AST [Catalytic activity/Vol] 27 U/L Normal 13-39 [facility] Comment on above: Performed By: #### L [id number] #### [facility] ([facility]) [address] [place] [address] Bilirubin [Mass/Vol] 0.8 mg/dL Normal 0.3-1.0 [facility] Comment on above: Performed By: #### L [id number] #### [facility] ([facility]) [address] [place] [address] Magnesium [Mass/Vol] 0.2 mg/dL Normal 0-0.2 [facility] Comment on above: Performed By: #### L [id number] #### [facility] ([facility]) [address] [place] [address] Protein [Mass/Vol] 6.3 g/dL Normal 6.0-8.3 [facility] Comment on above: Performed By: #### L [id number] #### [facility] ([facility]) [address] [place] [address] MR BRAIN W AND WO CONTRASTon 07-08-2024 MR BRAIN W AND WO CONTRAST MR BRAIN W AND WO CONTRAST CLINICAL [...] preserved by technique. No pathologic intraparenchymal enhancement. IMPRESSION: * No acute intracranial abnormality, accounting for motion artifact. Electronically signed: LORIN BRANDT MD. 8 Invalid Interpretation Code [facility] MR HEAD ANGIO WO IV CONTRAST on 07-08-2024 MR HEAD ANGIO WO IV CONTRAST MR HEAD ANGIO WO IV CONTRAST INDICATION: [...] distal vertebral and basilar arteries are patent. IMPRESSION: Normal MRA of the head. Electronically signed: LORIN BRANDT MD. Not Vldtd Invalid Interpretation Code [facility] 30on 07-07-2024 30 The patient is Moder ately Stable - Low risk of patient condition declining or worsening The patient's goals for the shift include rest, comfort The clinical goals for the shift include VSS, rest, comfort Over the shift, the patient did not make progress toward the following goals. Barriers to progression include heparin drip. Recommendations to address these barriers include making changes to the treatment plan as needed. Problem: Pain - Adult Goal: Verbalizes/displays adequate comfort level or baseline comfort level Outcome: Progressing Flowsheets (Taken 07/07/20242145) Verbalizes/displays adequate comfort level or baseline comfort level: Encourage patient to monitor pain and request assistance Assess pain using appropriate pain scale Administer analgesics based on type and severity of pain and evaluate response Implement non-pharmacological measures as appropriate and evaluate response Consider cultural and social influences on pain and pain management Notify Licensed Independent Practitioner if interventions unsuccessful or patient reports new pain Problem: Safety - Adult Goal: Free from fall injury Outcome: Progressing Flowsheets (Taken 07/07/20242145) Free from fall injury: Assess patient frequently for physical needs Identify cognitive and physical deficits and behaviors that affect risk of falls [facility] fall precautions as indicated by assessment Educate patient/family on patient safety, including physical limitations Instruct patient to call for assistance with activity based on assessment Modify environment to reduce risk of injury Consider OT/PT consult to assist with strengthening/mobility Problem: Discharge Planning Goal: Discharge to home or other facility with appropriate resources Outcome: Progressing Flowsheets (Taken 07/07/20242145) Discharge to home or other facility with appropriate resources: Identify barriers to discharge with patient and caregiver Arrange for needed discharge resources and transportation as appropriate Identify discharge learning needs (meds, wound care, etc) Problem: Chronic Conditions and Co-morbidities Goal: Patient's chronic conditions and co-morbidity symptoms are monitored and maintained or improved Outcome: Progressing Flowsheets (Taken 07/07/20242145) Care Plan - Patient's Chronic Conditions and Co-Morbidity Symptoms are Monitored and Maintained or Improved: Monitor and assess patient's chronic conditions and comorbid symptoms for stability, deterioration, or improvement Collaborate with multidisciplinary team to address chronic and comorbid conditions and prevent exacerbation or deterioration Update acute care plan with appropriate goals if chronic or comorbid symptoms are exacerbated and prevent overall improvement and discharge Normal [facility] 30 The patient is Moder ately Stable - Low risk of patient condition declining or worsening The patient's goals for the shift include comfort The clinical goals for the shift include hemodynamically stable Problem: Pain - Adult Goal: Verbalizes/displays adequate comfort level or baseline comfort level Outcome: Progressing Problem: Safety - Adult Goal: Free from fall injury Outcome: Progressing Flowsheets (Taken 07/07/2024 0466) Free from fall injury: Assess patient frequently for physical needs Identify cognitive and physical deficits and behaviors that affect risk of falls Problem: Discharge Planning Goal: Discharge to home or other facility with appropriate resources Outcome: Progressing Problem: Chronic Conditions and Co-morbidities Goal: Patient's chronic conditions and co-morbidity symptoms are monitored and maintained or improved Outcome: Progressing Normal [facility] 30 The patient is Moder ately Stable - Low risk of patient condition declining or worsening The patient's goals for the shift include comfort, rest The clinical goals for the shift include vss Over the shift, the patient did not make progress toward the following goals. Barriers to progression include recovery from coronary angiogram. Recommendations to address these barriers include making changes to the treatment plan as needed. Problem: Pain - Adult Goal: Verbalizes/displays adequate comfort level or baseline comfort level Outcome: Progressing Flowsheets (Taken 07/07/202435) Verbalizes/displays adequate comfort level or baseline comfort level: Encourage patient to monitor pain and request assistance Assess pain using appropriate pain scale Administer analgesics based on type and severity of pain and evaluate response Implement non-pharmacological measures as appropriate and evaluate response Consider cultural and social influences on pain and pain management Notify Licensed Independent Practitioner if interventions unsuccessful or patient reports new pain Problem: Safety - Adult Goal: Free from fall injury Outcome: Progressing Flowsheets (Taken 07/07/202435) Free from fall injury: Assess patient frequently for physical needs Identify cognitive and physical deficits and behaviors that affect risk of falls [facility] fall precautions as indicated by assessment Educate patient/family on patient safety, including physical limitations Instruct patient to call for assistance with activity based on assessment Modify environment to reduce risk of injury Consider OT/PT consult to assist with strengthening/mobility Problem: Discharge Planning Goal: Discharge to home or other facility with appropriate resources Outcome: Progressing Flowsheets (Taken 07/07/202435) Discharge to home or other facility with appropriate resources: Identify barriers to discharge with patient and caregiver Arrange for needed discharge resources and transportation as appropriate Identify discharge learning needs (meds, wound care, etc) Problem: Chronic Conditions and Co-morbidities Goal: Patient's chronic conditions and co-morbidity symptoms are monitored and maintained or improved Outcome: Progressing Flowsheets (Taken 07/07/202435) Care Plan - Patient's Chronic Conditions and Co-Morbidity Symptoms are Monitored and Maintained or Improved: Monitor and assess patient's chronic conditions and comorbid symptoms for stability, deterioration, or improvement Collaborate with multidisciplinary team to address chronic and comorbid conditions and prevent exacerbation or deterioration Update acute care plan with appropriate goals if chronic or comorbid symptoms are exacerbated and prevent overall improvement and discharge Normal [facility] ANTI-XA (HEPARIN LEVEL)on HEPARIN UNFRACTIONATED (U/ML) IN PPP BY CHROMOGENIC METHOD <0.10 Invalid Interpretation Code 0.3-0.7 [facility] Comment on above: Result Comment: [place] roxaban and Apixaban will interfere with the anti Xa assay used to monitor UFH and LMWH. Performed By: #### L [id number] #### [facility] ([facility]) [address] [place] [address] APTTon 07-07-2024 ACTIVATED PARTIAL THROMBOPLASTIN TIME IN PPP BY COAGULATION ASSAY 26.2 Seconds Normal 25.0-35.0 [facility] Comment on above: Order Comment: Basel ine aPTT before initiating heparin infusion. Result Comment: Clin ical significance of the APTT is questionable in the presence of heparin. Performed By: #### L [id number] #### [facility] ([facility]) [address] [place] [address] BASIC METABOLIC PANELon 06-19 Anion gap [Moles/Vol] 8 mmol/L Normal 7-20 [facility] Comment on above: Performed By: #### L [id number] #### [facility] ([facility]) [address] [place] [address] Calcium [Mass/Vol] 8.8 mg/dL Normal 8.6-10.3 [facility] Comment on above: Performed By: #### L [id number] #### [facility] ([facility]) [address] [place] [address] Chloride [Moles/Vol] 107 mmol/L Normal 98-107 [facility] Comment on above: Performed By: #### L [id number] #### [facility] ([facility]) [address] [place] [address] CO2 [Moles/Vol] 31 mmol/L Normal 21-31 [facility] Comment on above: Performed By: #### L [id number] #### [facility] ([facility]) [address] [place] [address] Creatinine [Mass/Vol] 0.62 mg/dL Normal 0.60-1.20 [facility] Comment on above: Performed By: #### L [id number] #### [facility] [address] [place] [address] GLOMERULAR FILTRATION RATE ML/MIN/1.73 SQ M.PREDICTED 114.7 mL/min/1.73m*2 Normal >60.0 [facility] Comment on above: Result Comment: [facility]???s estimated glomerular filtration rate (eGFR) will no longer include consideration of race in its calculation. The National Kidney Foundation???s eGFR Task Force developed new recommendations for [...] disproportionately affect any one group of individuals. Performed By: #### L [id number] #### [facility] ([facility]) [address] [place] [address] Glucose [Mass/Vol] 113 mg/dL High 70-100 [facility] Comment on above: Performed By: #### L [id number] #### [facility] ([facility]) [address] [address] Potassium [Moles/Vol] 4.6 mmol/L Normal 3.5-5.1 [facility] Comment on above: Performed By: #### L [id number] #### [facility] ([facility]) [address] [facility] [place] [address] Sodium [Moles/Vol] 141 mmol/L Normal 136-145 [facility] Comment on above: Performed By: #### L [id number] #### [facility] ([facility]) [address] [place] [address] Urea nitrogen [Mass/Vol] 10 mg/dL Normal 7-25 [facility] Comment on above: Performed By: #### L [id number] #### [facility] ([facility]) [address] [place] [address] UREA NITROGEN/CREATININE (MASS RATIO) IN SER/PLAS 16.1 Normal [facility] Comment on above: Performed By: #### L [id number] #### [facility] ([facility]) [address] [place] [address] CBCon 07-07-2024 Erythrocyte distribution width (RBC) [Ratio] 13.5 % Normal 11.5-15.0 [facility] Comment on above: Performed By: #### L [id number] ####[facility] ([facility])[address] [place] [address] ERYTHROCYTE MEAN CORPUSCULAR HEMOGLOBIN CONCENTRATION (G/DL) BY AUTOMATED 32.8 g/dL Normal 32.0-35.0 [facility] Comment on above: Performed By: #### L [id number] ####[facility] [place] [address] Hematocrit (Bld) [Volume fraction] 41.5 % Normal 36.0-45.0 [facility] Comment on above: Performed By: #### L [id number] ####[facility] ([facility])[address] [place] [address] Hemoglobin (Bld) [Mass/Vol] 13.6 g/dL Normal 12.0-15.0 [facility] Comment on above: Performed By: #### L [id number] ####[facility] ([facility])[address] [place] [address] MCH (RBC) [Entitic mass] 31.3 pg Normal 27.0-33.0 [facility] Comment on above: Performed By: #### L [id number] ####[facility] ([facility])[address] [place] [address] MCV (RBC) [Entitic vol] 95.6 fL Normal 82.0-98.0 [facility] Comment on above: Performed By: #### L [id number] ####[facility] ([facility])[address] [place] [address] PLATELETS (10*3/UL) IN BLOOD AUTOMATED COUNT 304 10*3/uL Normal 150-400 [facility] Comment on above: Performed By: #### L [id number] ####[facility] ([facility])[address] [place] [address] RBC (Bld) [#/Vol] 4.34 10*6/uL Normal 3.80-5.00 [facility] Comment on above: Performed By: #### L [id number] ####[facility] ([facility])[address] [place] [address] WBC (Bld) [#/Vol] 15.08 10*3/uL High 4.00-10.60 [facility] Comment on above: Performed By: #### L [id number] ####[facility] ([facility])[address] [place] [address] CONSULTon 07-07-2024 CONSULT ----- ----- Attestation signed by Jeff Reeder MD at 07/09/2024 2:52 PM I reviewed the salient portions of the patient history. I have seen and examined the patient during rounds with the medical student/resident/fellow. I repeated the osorio components of the exam. Agree with the noted assessment and plan. Jeff Reeder MD [facility] Pulmonary interventional and Critical Care Medicine. ----- Pulmonology Consult Patient : Celso Weller : 1980 Location: [id number] Attending: Liz Valdez MD Admit Date: 07/06/2024 Hospital Day: 1 Reason for Consult: Hemoptysis Restrictive lung disease HPI: Celso Weller is a 43 y.o. female with a past medical history with past medical history of chronic hypoxic respiratory failure, on 2-3 L at baseline, restrictive lung disease, pleural effusion, Nodular sclerosis hodgkin lymphoma diagnosed in 01/2023 status post x6 cycles ABVD chemotherapy, recurrence in 2012, x3 cycles of beam radiation, s/p mediastinal irradiation, extensive systemic therapy and ASCT (2013. S/p busulfan, etoposide, CyC), history recurrent pneumonias, history of bronchiectasis, PE on Xarelto, pulmonary hypertension, hypothyroidism on stable dose of synthroid, stem cell transplantation who was transferred from an out side hospital for left arm numbness and chest pain. Patient admitted of acute coronary syndrome in the setting of chest pain, left hand numbness, and elevation of serum troponin. Patient underwent a PCI 99% LAD occlusion on angiography, s/p DESx2 to LAD on 07/06/2024. Interval hx: Pulmonology were consulted today due an episode of hemoptysis of bright red blood. Patient is currently on aspirin and plavix post stenting. Seen and examined today at bedside, patient endorses congestion, with cough, shortness of breath, denies more chest pain, of any other significant complaints. Discussed with patient and nurse at bedside, all questions and concerns were addressed and answered. Patient was previously had bronchoscopies with BAL for recurrent pneumonias which showed rare Stenotrophomonas maltophilia. Most recent PFT From [facility] records 12/2023 Most recent Echo 07/06 TTE Left Ventricle: The left ventricle is normal [...] opacification and better delineation of endocardial borders. 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 S/p busulfan, etoposide, CyC), #S/p high-dose busulfan, etoposide, and cyclophosphamide with autologous stem cell transplantation February 2013. Relapse, she last received pembrolizumab on 05/01/2022, s/p RT, autologous bone marrow transplantation status Chronic hypoxic respiratory failure on 2-3 L at baseline Bronchiectasis and post radiation lung fibrosis Hx of PE on Xerelto Mild pulmonary hypertension mPAP 22, PVR 1.74 morillo, pcwp 4, CO 7.48 L/min based on RHC at [facility] 02/2024 multifactorial in the setting of history of PE, mediastinal radiation and post radiation fibrosis, bronchiectasis Plan: -Obtain chest CT wo contrast -No need for emergent bronchoscopy for now -Would continue to monitor for increased hemoptysis -Currently patient does not endorses repeated episodes -Hgb check today stable, would continue to monitor daily -Recommend holding Xarelto, switch back to heparin gtt for the next 24 hours -Continue management with asa and Plavix in the mean time -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 No pertinent past medical history. Allergies Allergen Reactions Sulfa (Sulfonamide Antibiotics) Rash Social History Socioeconomic History Marital status: Single Spouse name: Not on file Number of children: Not on file Years of (more content not included)... Normal [facility] CT CHEST WO IV CONTRASTon CT CHEST WO IV CONTRAST CLINICAL HISTORY: Hemoptysis. History of Hodgkin's lymphoma. [...] abdomen. No acute osseous abnormalities. IMPRESSION: Impression: 1. Poorly circumscribed perihilar consolidations with [...] this report. Electronically signed: Vin Oglesby MD. 4 Invalid Interpretation Code [facility] CT HEAD WO IV CONTRASTon CT HEAD WO IV CONTRAST Clinical information: Headache Comparison: None available. Technique: Routine unenhanced brain CT. Findings: Acute intracranial hemorrhage or extra axial fluid collection. Alcantara-white differentiation is well preserved. Ventricles are somewhat slitlike in nature with accompanying partially empty sella. No evidence of midline shift or obstructing lesions. Cerebral volume is age appropriate No depressed or displaced osseous fracture Mastoid air cells and paranasal sinuses are well aerated No acute soft tissue abnormality. IMPRESSION: Impression: * No acute intracranial abnormality. * Slitlike lateral lateral ventricles and partially empty sella can be seen in idiopathic intracranial hypertension. Clinical correlation recommended. Approved by:Jose Charlton07/07/2024 6:30 PM. Carlo Hull,have reviewed the image(s) and agree with the findings in this report. Electronically signed: Carlo Freeman. 9 null Normal [facility] PLATELET COUNTon 07-07-2024 PLATELETS (10*3/UL) IN BLOOD AUTOMATED COUNT 304 10*3/uL Normal 150-400 [facility] Comment on above: Performed By: #### L [id number] ####[facility] ([facility])[address] [place] [address] 30on 07-06-2024 30 The patient is Moder ately Stable - Low risk of patient condition declining or worsening The patient's goals for the shift include comfort The clinical goals for the shift include VSS Normal [facility] ANTI-XA (HEPARIN LEVEL)on HEPARIN UNFRACTIONATED (U/ML) IN PPP BY CHROMOGENIC METHOD 0.14 IU/mL Invalid Interpretation Code 0.3-0.7 [facility] Comment on above: Order Comment: Check anti-Xa level every 6 hours while on heparin infusion, or per protocol. Result Comment: Brenda roxaban and Apixaban will interfere with the anti Xa assay used to monitor UFH and LMWH. Performed By: #### L [id number] #### [facility] ([facility]) [address] [place] [address] APTTon 07-06-2024 ACTIVATED PARTIAL THROMBOPLASTIN TIME IN PPP BY COAGULATION ASSAY 27.9 Seconds Normal 25.0-35.0 [facility] Comment on above: Order Comment: Basel ine aPTT before initiating heparin infusion. Result Comment: Clin ical significance of the APTT is questionable in the presence of heparin. Performed By: #### L [id number] #### [facility] ([facility]) [address] [place] [address] B-TYPE NATRIURETIC PEPTIDEon 07-06-2024 Natriuretic peptide B (Bld) [Mass/Vol] 441 pg/mL High 0-100 [facility] Comment on above: Performed By: #### L [id number] #### [facility] ([facility]) [address] [place] [address] BASIC METABOLIC PANELon 06-18 Anion gap [Moles/Vol] 10 mmol/L Normal 7-20 [facility] Comment on above: Performed By: #### L [id number] #### [facility] ([facility]) [address] [place] [address] Calcium [Mass/Vol] 9.0 mg/dL Normal 8.6-10.3 [facility] Comment on above: Performed By: #### L [id number] #### [facility] ([facility]) [address] [place] [address] Chloride [Moles/Vol] 106 mmol/L Normal 98-107 [facility] Comment on above: Performed By: #### L [id number] #### [facility] [address] [place] [address] CO2 [Moles/Vol] 28 mmol/L Normal 21-31 [facility] Comment on above: Performed By: #### L [id number] #### [facility] ([facility]) [address] [place] [address] Creatinine [Mass/Vol] 0.62 mg/dL Normal 0.60-1.20 [facility] Comment on above: Performed By: #### L AB15 #### [facility] ([facility]) [address] [place] [address] GLOMERULAR FILTRATION RATE ML/MIN/1.73 SQ M.PREDICTED 114.7 mL/min/1.73m*2 Normal >60.0 [facility] Comment on above: Result Comment: The [facility]???s estimated glomerular filtration rate (eGFR) will no longer include consideration of race in its calculation. The National Kidney Foundation???s eGFR Task Force developed new recommendations for [...] disproportionately affect any one group of individuals. Performed By: #### L [id number] #### [facility] ([facility]) [address] [place] [address] Glucose [Mass/Vol] 150 mg/dL High 70-100 [facility] Comment on above: Performed By: #### L [id number] #### [facility] ([facility]) [address] [place] [address] Potassium [Moles/Vol] 4.4 mmol/L Normal 3.5-5.1 [facility] Comment on above: Performed By: #### L [id number] #### [facility] ([facility]) [address] [place] [address] Sodium [Moles/Vol] 140 mmol/L Normal 136-145 [facility] Comment on above: Performed By: #### L [id number] #### [facility] [address] [place] [address] Urea nitrogen [Mass/Vol] 7 mg/dL Normal 7-25 [facility] Comment on above: Performed By: #### L [id number] #### [facility] ([facility]) [address] [place] [address] UREA NITROGEN/CREATININE (MASS RATIO) IN SER/PLAS 11.3 Normal [facility] Comment on above: Performed By: #### L [id number] #### [facility] ([facility]) [address] [place] [address] CBCon 07-06-2024 Erythrocyte distribution width (RBC) [Ratio] 13.2 % Normal 11.5-15.0 [facility] Comment on above: Performed By: #### L AB15 #### [facility] ([facility]) [address] [place] [address] ERYTHROCYTE MEAN CORPUSCULAR HEMOGLOBIN CONCENTRATION (G/DL) BY AUTOMATED 33.1 g/dL Normal 32.0-35.0 [facility] Comment on above: Performed By: #### L [id number] #### [facility] ([facility]) [address] [place] [address] Hematocrit (Bld) [Volume fraction] 43.8 % Normal 36.0-45.0 [facility] Comment on above: Performed By: #### L [id number] #### [facility] ([facility]) [address] [place] [address] Hemoglobin (Bld) [Mass/Vol] 14.5 g/dL Normal 12.0-15.0 [facility] Comment on above: Performed By: #### L [id number] #### [facility] ([facility]) [address] [place] [address] MCH (RBC) [Entitic mass] 31.2 pg Normal 27.0-33.0 [facility] Comment on above: Performed By: #### L [id number] #### [facility] ([facility]) [address] [place] [address] MCV (RBC) [Entitic vol] 94.2 fL Normal 82.0-98.0 [facility] Comment on above: Performed By: #### L [id number] #### [facility] ([facility]) [address] [place] [address] PLATELETS (10*3/UL) IN BLOOD AUTOMATED COUNT 336 10*3/uL Normal 150-400 [facility] Comment on above: Performed By: #### L [id number] #### [facility] ([facility]) [address] [place] [address] RBC (Bld) [#/Vol] 4.65 10*6/uL Normal 3.80-5.00 [facility] Comment on above: Performed By: #### L [id number] #### [facility] ([facility]) [address] [place] [address] WBC (Bld) [#/Vol] 8.41 10*3/uL Normal 4.00-10.60 [facility] Comment on above: Performed By: #### L [id number] #### [facility] ([facility]) [address] [place] [address] CONSULTon 07-06-2024 CONSULT ----- ----- Attestation signed by Sherly Dang MD at 07/06/2024 1:18 PM I personally spoke with Nancy Janee with Dr. Saab and examined her. She has a history of non-Hodgkin's lymphoma treated with chest XRT x 3 and several chemotherapy regimens. Yesterday she presented first with L arm numbness in hand followed by severe chest pressure radiating to the L arm. Currently she is chest pain free. Exam remarkable for S4 gallop. EKG + inferior Q waves Echo pending Ti positive In summary, Ms. Weller presents with a non-STEMI however, the Q waves in the inferior leads make me concerned that we have missed the period of ST elevation of a STEMI. She is at increased risk of CAD due to prior chest radiation and, at times, this may be intimal proliferation as opposed to atherosclerosis per se. That we cannot differentiate without angio with or without IVUS. I have discussed with her treatment options and recommend cardiac cath +/- PCI. We discussed potential risks including bleeding (increased due to xarelto use), TN, stroke, , emergency surgery, kidney injury, contrast reaction etc.) She understands and agrees to proceed. ----- Cardiology Consult Note Reason for Consult: Chest pain HPI: Celso Weller is a 43 y.o. female with medical history notable for hodgkin's lymphoma s/p multiple rounds chemoradiation (see details below), with multiple radiation-related complications including restrictive lung disease, pneumonitis, recurrent pneumonia, and neuropathy. History obtained from patient. Celso Weller presented with acute onset left hand numbness on 07/05/24, followed shortly by substernal chest pain. Pain was sharp, non-radiating, and associated with nausea. Otherwise negative for associated symptoms including no palpitations or diaphoresis. She had no experienced similar pain in the past. Pertinent vitals include sinus tachycardia. Notable labs include HS troponin 641. ECG demonstrated concern for ST depression in leads I and aVL. Cardiology was consulted for evaluation of chest pain. Active outpatient cardiac medications: Atenolol 50mg BID, rivaroxaban 10mg daily (due to PE, last dose 07/04/24), Family history of cardiac pathology: None reported. Tobacco/alcohol/substance history: History of tobacco smoking, in remission since 2011. 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 Last surface echo: Dec 2023 with EF 55%, moderate MR, moderate AR, RVSP 52mmHg. Last stress test: N/A Last coronary angiography: N/A ROS: Ten point review of systems negative except as noted above. Past Medical History She has no past medical history on file. Surgical History She has no past surgical history on file. Social History She reports that she has quit smoking. Her smoking use included cigarettes. She has never used smokeless tobacco. No history on file for alcohol use and drug use. Family History No family history on file. Allergies Sulfa (sulfonamide antibiotics) Medications No current outpatient medications No medications prior to admission. Current Facility-Administered Medications Medication Dose Route Frequency Provider Last Rate Last Admin acetaminophen (Tylenol) tablet 650 mg 650 mg oral q6h PRN Jan Kelly MD heparin infusion 100 units/mL in D5W 0-28 Units/kg/hr intravenous Continuous Jan Kelly MD ondansetron ODT (Zofran-ODT) disintegrating tablet 4 mg 4 mg oral q8h PRN Jan Kelly MD Or ondansetron HCl (PF) (Zofran) injection 4 mg 4 mg intravenous q6h PRN Jan Kelly MD sennosides-docusate sodium (Dina-Colace) 8.6-50 mg per tablet 1 tablet 1 tablet oral BID PRN Jan Kelly MD Last Recorded Vitals Patient Vitals for the past 24 hrs: BP Temp Temp src Pulse Resp SpO2 Height Weight 07/06/24 0600 129/84 36 ???C (96.8 ???F) Temporal 109 18 95 % 1.829 m (6') 107 kg (235 lb 9.6 oz) Physical Examination: GENERAL: AOx3, in no acute distress. HEAD: Atraumatic, normocephalic. EYES: PERRLA, EOMI. NECK: No JVD present. CARDIAC: RRR. Loud S4 noted. RESPIRATORY: CTAB, no increased work of breathing. ABDOMEN: Soft, nontender, nondistended. EXTREMITIES: No lower extremity edema, peripheral pulses are 2+ bilaterally. NEURO: No focal deficits Relevant Testing Results No results found for this or any previous visit (from the past 4464 hour(s)). No results found for: CKTOTAL , CKMB , CKMBINDEX , TROPONINI No echocardiogram results found for the past 12 months No nuclear medicine results found for the past 12 months Relevant Imaging Results No image results found. Assessment: #Concern for acute coronary syndrome in the setting of chest pain, left hand numbness, and elevation of serum troponin #His (more content not included)... Normal [facility] HCG, QUANTITATIVE, on 07-06-2024 CHORIOGONADOTROPIN (MIU/L) IN SER/PLAS 5 mIU/L Normal [facility] Comment on above: Result Comment: MARIEMikayla LE REFERENCE RANGES: NON 0-5 4 WKS SINCE PERIOD 3-426 5 WKS SINCE PERIOD 19-7340 6 WKS SINCE PERIOD 1080-56,500 10 WKS SINCE PERIOD 54,100-288,000 18 WKS SINCE PERIOD 8,910-66,000 31 WKS SINCE PERIOD 5,310-27,400 MALE REFERENCE RANGE: 0-2 Performed By: #### L [id number] #### [facility] ([facility]) [address] [place] [address] HEMOGLOBIN A1Con 07-06-2024 Glucose [Mass/Vol] 120 mg/dL Normal [facility] Comment on above: Performed By: #### L [id number] #### [facility] ([facility]) [address] [place] [address] HbA1c (Bld) [Mass fraction] 5.8 % Normal 4.0-6.0 [facility] Comment on above: Performed By: #### L [id number] #### [facility] ([facility]) [address] [place] [address] HIGH SENSITIVITY TROPONIN Io n 07-06-2024 HS TROPONIN I (NG/L) 3570 ng/L Critically high <15 [facility] Comment on above: Performed By: #### L [id number] #### [facility] ([facility]) [address] [place] [address] HS TROPONIN I (NG/L) 3642 ng/L Critically high <15 [facility] Comment on above: Performed By: #### L [id number] #### [facility] ([facility]) [address] [place] [address] HS TROPONIN I (NG/L) 3033 ng/L Critically high <15 [facility] Comment on above: Performed By: #### L [id number] #### [facility] ([facility]) [address] [place] [address] LIPID PANELon 07-06-2024 CHOL/HDL 3.9 mg/dL Normal [facility] Comment on above: Performed By: #### L AB18 #### [facility] [address] [place] [address] Cholesterol [Mass/Vol] 225 mg/dL High 120-200 [facility] Comment on above: Performed By: #### L [id number] #### [facility] ([facility]) [address] [place] [address] Magnesium [Mass/Vol] 117 mg/dL Normal <150 [facility] Comment on above: Result Comment: TRIG LYCERIDE REFERENCE RANGE: 20 YEARS AND OLDER CARDIOVASCULAR RISK LESS THAN 150 mg/dL LOW RISK 150 TO 199 mg/dL BORDERLINE RISK 200 mg/dL AND GREATER HIGH RISK Performed By: #### L [id number] #### [facility] [address] [place] [address] Magnesium [Mass/Vol] 145 mg/dL Normal 0-160 [facility] Comment on above: Performed By: #### L [id number] #### [facility] [address] [place] [address] Magnesium [Mass/Vol] 57 mg/dL Normal 23-92 [facility] Comment on above: Performed By: #### L [id number] #### [facility] [address] [place] [address] NON HDL CHOL. (LDL+VLDL) 168 Normal [facility] Comment on above: Performed By: #### L [id number] #### [facility] ([facility]) [address] [place] [address] TOTAL VLDL-C 23 mg/dL Normal 0-40 [facility] Comment on above: Performed By: #### L [id number] #### [facility] ([facility]) [address] [place] [address] No Panel InformationOrdered By: Radiologist Radiology on 05-29-2024 [employer] Work Phone: XR CHEST 2V FRONTAL/LATon * [...] any questions regarding this interpretation, please call [phone]. If you are unable to reach us at the number above, please feel free to contact [facility] at [phone]. [id number]^[email or web address]^ACN [facility]iology, Radiologi MD rafaela - 05/29/2024 * * *Final Report* * [...] any questions regarding this interpretation, please call [phone]. If you are unable to reach us at the number above, please feel free to contact [facility] at [phone]. [id number]^[email or web address]^SI^ACN [facility] Radiology Study observation (narrative) [facility] Healthcare XR Chest PA and Lateralon IMPRESSION: 1. [...] any questions regarding this interpretation, please call [phone]. If you are unable to reach us at the number above, please feel free to contact [facility] at [phone]. DIVISION OF RADIOLOGY * * *Final Report* [...] the thoracic spine. DIVISION OF RADIOLOGY Provider, [facility] - 05/29/2024 * * *Final Report* * [...] any questions regarding this interpretation, please call [phone]. If you are unable to reach us at the number above, please feel free to contact [facility] at [phone]. [facility] Rad[facility] Study observation (narrative) [facility] US CHEST EFFUSION SURVEYon 0 05-08-2024 US CHEST EFFUSION SURVEY * * *Final Report* * * DATE OF EXAM: May 08 2024 8:05PM [facility] 1234 - US CHEST EFFUSION SURVEY [...] There is a small left pleural effusion. Putter In: PSCB Transcribe Date/Time: May 10 2024 4:21P Dictated by : STEFAN MENDOZA MD This examination was interpreted and the report reviewed and electronically signed by: STEFAN MENDOZA MD on May 10 2024 4:21PM EST [id number] Normal [facility] CBC W AUTO DIFF BLDon Basophils/100 WBC (Bld) 0.3 % [facility] BASOPHILS # BLD AUTO <0.03 [facility] DIFFERENTIAL METHOD BLD Auto [facility] EOSINOPHIL # BLD AUTO 0.26 [facility] LYMPHOCYTES # BLD AUTO 1.95 [facility] MONOCYTES # BLD AUTO 0.67 [facility] NEUTROPHILS # BLD AUTO 4.68 [facility] NRBC # BLD AUTO <0.01 [facility] NRBC/100 WBC BLD-RTO 0 /100 WBC [facility] PLATELET # BLD AUTO 297 [facility] PMV BLD AUTO 8.8 fL Low 9.0 - 12.7 fL [facility] WBC # BLD AUTO 7.6 [facility] Eosinophils/100 WBC (Bld) 3.4 % [facility] Erythrocyte distribution width (RBC) [Ratio] 13.5 % 11.5 - 15.0 % [facility] Hematocrit (Bld) [Volume fraction] 43.1 % 36.0 - 46.0 % [facility] Hemoglobin (Bld) [Mass/Vol] 14.3 g/dL 11.5 - 15.5 g/dL [facility] IMM GRANULOCYTES # BLD AUTO <0.03 [facility] IMM GRANULOCYTES/LEUK NFR BLD AUTO 0.3 % [facility] Interpretation and review of laboratory results Abnormal [facility] Lymphocytes/100 WBC (Bld) 25.7 % [facility] MCH (RBC) [Entitic mass] 31.4 pg 26.0 - 34.0 pg [facility] MCHC (RBC) [Mass/Vol] 33.2 g/dL 30.5 - 36.0 g/dL [facility] MCV (RBC) [Entitic vol] 94.7 fL 80.0 - 100.0 fL [facility] Monocytes/100 WBC (Bld) 8.8 % [facility] Neutrophils/100 WBC (Bld) 61.5 % [facility] RBC (Bld) [#/Vol] 4.55 10*6/uL 3.90 - 5.2 0 m/uL [facility] Specimen Type: BLOOD SPECIMEN Ordering Facility: [facility] Address: [address] [place] [address] Original Ordering Provider: RUPERTO [facility]BR[facility]ST[facility] CENTER[facility]ARILIS [facility] No Panel InformationOrdered By: Radiologist Radiology on 05-04-2024 [facility] Work Phone: XR CHEST 2V FRONTAL/LATon * [...] any questions regarding this interpretation, please call [phone]. If you are unable to reach us at the number above, please feel free to [facility] at [phone]. [id number]^[email or web address]^ACN [facility] Radiology, Radiologi MD rafaela - 05/04/2024 * * *Final Report* * [...] any questions regarding this interpretation, please call [phone]. If you are unable to reach us at the number above, please feel free to [facility] at [phone]. [id number]^[email or web address]^ACN [facility] Radiology Study observation (narrative) [facility] XR Chest PA and Lateralon IMPRESSION: New [...] any questions regarding this interpretation, please call [phone]. If you are unable to reach us at the number above, please feel free to contact [facility] at [phone]. DIVISION OF RADIOLOGY * * *Final Report* [...] effusion. No pneumothorax. DIVISION OF RADIOLOGY Provider, [facility] - 05/04/2024 * * *Final Report* * [...] any questions regarding this interpretation, please call [phone]. If you are unable to reach us at the number above, please feel free to contact [facility] at [phone]. [facility] Rad[facility] Study observation (narrative) [facility] CBC PNL BLD AUTOon 03-13 [facility] NRBC # BLD AUTO <0.01 NINF [facility] PLATELET # BLD AUTO 297 [facility] PMV BLD AUTO 9 fL 9.0 - 12.7 fL [facility] WBC # BLD AUTO 9.57 [facility] Erythrocyte distribution width (RBC) [Ratio] 13.6 % 11.5 - 15.0 % [facility] Hematocrit (Bld) [Volume fraction] 43 % 36.0 - 46.0 % [facility] Hemoglobin (Bld) [Mass/Vol] 14.3 g/dL 11.5 - 15.5 g/dL [facility] MCH (RBC) [Entitic mass] 31 pg 26.0 - 34.0 pg [facility] MCHC (RBC) [Mass/Vol] 33.3 g/dL 30.5 - 36.0 g/dL [facility] MCV (RBC) [Entitic vol] 93.1 fL 80.0 - 100.0 fL [facility] RBC (Bld) [#/Vol] 4.62 10*6/uL 3.90 - 5.2 0 m/uL [facility] Specimen Type: BLOOD SPECIMEN Ordering Facility: [facility] Address: [facility] [place] [address] Original Ordering Provider: NOVA CHARLES [facility] ARTERIAL BLOOD GASESon 03-16-2023 BASE DEFICIT BLDA-SCNC -1 mmol/L -2 - 0 mmol/L [facility] Body temperature 98.6 [degF] [facility] CA-I ADJ PH7.4 BLDA-SCNC 1.21 mmol/L 1.08 - 1.30 mmol/L [facility] CA-I BLD-MCNC 1.24 mmol/L 1.08 - 1.3 0 mmol/L [facility] COHGB MFR BLDA 1.6 % 0.0 - 2.0 % [facility] Comment on above: Carboxyhemoglobin Re ference Range for Smokers: 2.0-8.0% [facility] LACTATE BLD-SCNC 2 mmol/L 0.5 - 2.2 mmol/L [facility] METHGB MFR BLD <1.0 0.0 - 1.5 % [facility] O2 THERAPY RA=Room Air [facility] OXYHGB MFR BLDA 93 % Low 95 - 98 % [facility] PCO2 BLD 45 [facility] PH BLD 7.36 7.35 - 7.45 [facility] PO2 BLD 70 Low [facility] Glucose [Mass/Vol] 114 mg/dL High 60 - 105 mg/dL [facility] HCO3 (Bld) [Moles/Vol] 25 mmol/L 22 - 26 mmol/L [facility] Hematocrit (Bld) [Volume fraction] 43.6 % 36.0 - 46.0 % [facility] Hemoglobin (Bld) [Mass/Vol] 14.2 g/dL 11.5 - 15.5 g/dL [facility] Interpretation and review of laboratory results Abnormal [facility] PO2 / FIO2 RATIO 333 - PINF [facility] Potassium [Moles/Vol] 4.1 mmol/L 3.5 - 5.0 mmol/L [facility] SAO2 % BLDA 95 % 95 - 98 % [facility] Sodium [Moles/Vol] 142 mmol/L 136 - 144 mmol/L [facility] Specimen Type: ARTER IAL BLOOD SPECIMEN Ordering Facility: [facility] Address: [facility] [place] [id number] Original Ordering Provider: JANI CHARLES [facility] NM LUNG VENT / PERF VQon NM [...] PE protocol chest CT may be performed. Putter In: [facility] Transcribe Date/Time: Jan 15 2024 11:50A Dictated by : CAIO HINKLE MD This examination was interpreted and the report reviewed and electronically signed by: CAIO HINKLE MD on Jan 15 2024 11:53AM EST [id number] [facility] Lung Ventilation and Perf ion 01-15-2024 IMPRESSION: LOW probability VQ scan. If there is a discordant clinical likelihood of thromboembolic disease, additional evaluation with lower extremity venous Dopplers and/or contrast-enhanced PE protocol chest CT may be performed. Putter In: [facility] Transcribe Date/Time: Jan 15 2024 11:50A Dictated by : CAIO HINKLE MD This examination was interpreted and the report reviewed and electronically signed by: CAIO HINKLE MD on Jan 15 2024 11:53AM EST [facility] * * *Final Report* * * DATE OF EXAM: Jan 15 2024 11:18AM [facility] 0032 - NM LUNG VENT / [...] available. No moderate/large segmental mismatched perfusion defects. [facility] Provider, [facility] - 01/15/2024 * * *Final Report* * [...] PE protocol chest CT may be performed. Putter In: [facility] Transcribe Date/Time: Jan 15 2024 11:50A Dictated by : CAIO HINKLE MD This examination was interpreted and the report reviewed and electronically signed by: CAIO HINKLE MD on Jan 15 2024 11:53AM EST [facility] Radiology Study observation (narrative) [facility] Lung Ventilation and Perf usionOrdered By: Ccf Provider on 01-15-2024 [facility] OXIMETRY WITH AMBULATIONon 1 03-16-2023 Perla Powell, COUNSELING PSYCHOLOGIST 01/15/2024 10:22 AM RESPIRATORY THERAPY OXIMETRY WITH [...] Carrier Forehead 20 None NAME: Perla Powell COUNSELING PSYCHOLOGIST PATIENT NAME: Celso Weller DATE: January 15, 2024 TIME: 10:19 AM Comment: [facility] Varun 01-14-2024 CNPN Telephone (AVXRMO) ----- CELSO WELLER ([id number]) 1980 F Date Time Provider Department 01/14/24 JOCELYN EDWARDS AVXRMO During your visit today, we recorded the following information about you: Jocelyn Edwards RT(R) 01/14/2024 11:32 AM Signed Spoke with [...] Date Reviewed: 01/14/2024 Reviewed by: Jocelyn Edwards RT(Claudia) - Fully Assessed Reason for Visit: Radiology NM [1489] Cmt: Appointment reminder. Prescriptions as of 01/14/2024 [...] C No.3 (B COMPLEX PLUS VITAMIN C) 97-35-96-5-300 mg cap Take 1 tablet by mouth once daily. - Lactobac no.41/Bifidobact no.7 (PROBIOTIC-10 ORAL) Take by mouth. - atenolol (TENORMIN) 50 mg tablet take 1 tablet by mouth twice a day - CHOLECALCIFEROL, VITAMIN D3, (VITAMIN D3 ORAL) Take 1,000 Units by mouth once daily. 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 Normal [facility] NT-PROBNP [facility] 1 03-07-2023 Natriuretic peptide B (Bld) [Mass/Vol] 643 pg/mL High NINF - 125 pg/mL [facility] Specimen Type: BLOOD SPECIMEN Ordering Facility: [facility] Address: [address] [place] [address] Original Ordering Provider: [facility] metabolic 2000 panelon 01-06-2024 Albumin [Mass/Vol] 4.2 g/dL 3.9 - 4.9 g/dL [facility] ALP [Catalytic activity/Vol] 56 U/L 34 - 123 U/L [facility] ALT [Catalytic activity/Vol] 38 U/L 7 - 38 U/L [facility] Anion gap [Moles/Vol] 9 mmol/L 8 - 15 mmol/L [facility] AST [Catalytic activity/Vol] 39 U/L High 13 - 35 U/L [facility] Bilirubin [Mass/Vol] 0.5 mg/dL 0.2 - 1.3 mg/dL [facility] Calcium [Mass/Vol] 9.5 mg/dL 8.5 - 10. 2 mg/dL [facility] Chloride [Moles/Vol] 103 mmol/L 98 - 107 mmol/L [facility] CO2 [Moles/Vol] 30 mmol/L 22 - 30 mmol/L [facility] Creatinine [Mass/Vol] 0.73 mg/dL 0.58 - 0.96 mg/dL [facility] GFR/1.73 sq M.predicted among non-blacks MDRD (S/P/Bld) [Vol rate/Area] 106 mL/min/{1.73_m2} - PINF [facility] Comment on above: Estimated Glomerular Filtration [...] [Mass/Vol] 91 mg/dL 74 - 99 mg/dL [facility] Comment on above: The [place] Diabete s Association (ADA) provides guidance for [...] Standards of Medical Care in Diabetes 2016, [place] Diabetes Association. Diabetes Care. 2016.39(Suppl 1). Interpretation and review of laboratory results Abnormal [facility] Potassium [Moles/Vol] 4.0 mmol/L 3.7 - 5.1 mmol/L [facility] Protein [Mass/Vol] 7.0 g/dL 6.3 - 8.0 g/dL [facility] Sodium [Moles/Vol] 142 mmol/L 136 - 144 mmol/L [facility] Urea nitrogen [Mass/Vol] 7 mg/dL 7 - 21 mg/dL [facility] Albumin [Mass/Vol] 4.2 g/dL Normal 3.9-4.9 [facility] Comment on above: Order Comment: Speci men Type: BLOOD SPECIMENOrdering Facility: [facility] Address: [address] [place] [address] Performed By: #### 3 3762-6, 09727-2, 87036-0 ####[facility] LABORATORYCLIA [id number] [place] [address] [place] ALP [Catalytic activity/Vol] 56 U/L Normal 34-123 [facility] Comment on above: Order Comment: Speci men Type: BLOOD SPECIMENOrdering Facility: [facility] Address: [address] [place] [address] Performed By: #### 3 3762-6, 20843-0, ####[facility] LABORATORYCLIA [id number] [place] [address] [place] ALT [Catalytic activity/Vol] 38 U/L Normal 7-38 [facility] Comment on above: Order Comment: Speci men Type: BLOOD SPECIMENOrdering Facility: [facility] Address: [address] [place] [address] Performed By: #### 3 3762-6, 53308-8, ####[facility] LABORATORYCLIA [id number] [place] [address] [place] Anion gap [Moles/Vol] 9 mmol/L Normal 8-15 [facility] Comment on above: Order Comment: Speci men Type: BLOOD SPECIMENOrdering Facility: [facility] Address: [address] [place] [address] Performed By: #### 3 3762-6, 94414-1, ####[facility] LABORATORYCLIA [id number] [place] [address] [place] AST [Catalytic activity/Vol] 39 U/L High 13-35 [facility] Comment on above: Order Comment: Speci men Type: BLOOD SPECIMENOrdering Facility: [facility] Address: [address] [place], [place] [address] Performed By: #### 3 3762-6, 64126-1, ####[facility] LABORATORYCLIA [id number] [place] [address] [place] Bilirubin [Mass/Vol] 0.5 mg/dL Normal 0.2-1.3 [facility] Comment on above: Order Comment: Speci men Type: BLOOD SPECIMENOrdering Facility: [facility] Address: [address] [place], [place] [address] Performed By: #### 3 3762-6, 42841-3, ####[facility] LABORATORYCLIA [id number] [place] [address] [place] Calcium [Mass/Vol] 9.5 mg/dL Normal 8.5-10.2 [facility] Comment on above: Order Comment: Speci men Type: BLOOD SPECIMENOrdering Facility: [facility] Address: [address] [place] [address] Performed By: #### 3 3762-6, 93519-4, ####[facility] LABORATORYCLIA [id number] [place] [address] [place] Chloride [Moles/Vol] 103 mmol/L Normal 98-107 [facility] Comment on above: Order Comment: Speci men Type: BLOOD SPECIMENOrdering Facility: [facility] Address: [address] [place] [address] Performed By: #### 3 3762-6, 58766-2, ####[facility]ITAL[facility] [id number] [place] [address] [place] CO2 [Moles/Vol] 30 mmol/L Normal 22-30 [facility] ital Comment on above: Order Comment: Speci men Type: BLOOD SPECIMENOrdering Facility: [facility] Address: [address] [place] [address] Performed By: #### 3 3762-6, 70946-7, ####[facility] LABORATORYCLIA [id number] [place] [address] [place] Creatinine [Mass/Vol] 0.73 mg/dL Normal 0.58-0.96 [facility] Comment on above: Order Comment: Speci men Type: BLOOD SPECIMENOrdering Facility: [facility] Address: [address] [place] [address] Performed By: #### 3 3762-6, 83782-6, ####[facility]ITAL[facility] [id number] [place] [address] [place] Creatinine and Glomerular filtration rate.predicted panel (S/P/Bld) 106 mL/min/1.73m??? Normal >=60 [facility] Comment on above: Order Comment: Nicole toribio Type: BLOOD SPECIMENOrdering Facility: [facility] Address: [address] [place] [address] Result Comment: Purnima mated Glomerular Filtration Rate [...] actual GFR. Performed By: #### 3 3762-6, 54313-7, ####[facility]ITALIA [id number] [facility] [address] [place] Glucose [Mass/Vol] 91 mg/dL Normal 74-99 [facility] Comment on above: Order Comment: Nicole toribio Type: BLOOD SPECIMENOrdering Facility: [facility] Address: [address] [place] [address] Result Comment: The [place] Diabetes Association (ADA) provides guidance for cutoff [...] Standards of Medical Care in Diabetes 2016, [place] Diabetes Association. Diabetes Care. 2016.39(Suppl 1). Performed By: #### 3 3762-6, 76054-9, ####[facility] LABORATORYIA [id number] [place] [address] [place] Potassium [Moles/Vol] 4.0 mmol/L Normal 3.7-5.1 [facility] Comment on above: Order Comment: Speci men Type: BLOOD SPECIMENOrdering Facility: [facility] Address: [address] [place] [address] Performed By: #### 3 3762-6, 05124-9, 75031-1 ####[facility] LABORATORYCLIA [id number] [place] [address] [place] Protein [Mass/Vol] 7.0 g/dL Normal 6.3-8.0 [facility] Comment on above: Order Comment: Speci men Type: BLOOD SPECIMENOrdering Facility: [facility] Address: [address] [place] [address] Performed By: #### 3 3762-6, 68127-5, ####[facility]PITALCLIA [id number] [place] [address] [place] Sodium [Moles/Vol] 142 mmol/L Normal 136-144 [facility] Comment on above: Order Comment: Speci men Type: BLOOD SPECIMENOrdering Facility: [facility] Address: [address] [place] [address] Performed By: #### 3 3762-6, 61137-0, ####[facility] LABORATORYIA [id number] [place] [address] [place] Urea nitrogen [Mass/Vol] 7 mg/dL Normal 7-21 [facility] Comment on above: Order Comment: Speci men Type: BLOOD SPECIMENOrdering Facility: [facility] Address: [address] [place] [address] Performed By: #### 3 3762-6, 80052-2, 78817-3 ####[facility]ITALIA [id number] [place] [address] [place] MAGNESIUMon 01-06-2024 Magnesium [Mass/Vol] 2.1 mg/dL 1.7 - 2.3 mg/dL [facility] Magn[facility] 01-05 Magnesium [Mass/Vol] 2.1 mg/dL Normal 1.7-2.3 [facility] Comment on above: Order Comment: Nicole toribio Type: BLOOD SPECIMENOrdering Facility: [facility] Address: [address] [place] [address] Performed By: #### 3 3762-6, 56488-0, 19762-8 ####[facility] LABORATORYCLIA [id number] [place] [address] [place] Magnesium [Mass/Vol]on 01-05 Interpretation and review of laboratory results Normal [facility] NT PRO BNPon 01-06-2024 Natriuretic peptide.B prohormone N-Terminal [Mass/Vol] 643 pg/mL High NINF - 125 pg/mL [facility] NT-proBNP [facility]-ncon 01-05 Natriuretic peptide.B prohormone N-Terminal [Mass/Vol] 643 pg/mL High <125 [facility] Comment on above: Order Comment: Nicole toribio Type: BLOOD SPECIMENOrdering Facility: [facility] Address: [address] [place], [place] [address] Performed By: #### 3 3762-6, 70798-3, ####[facility] LABORATORYCLIA [id number] [place] [address] [place] No Panel Informationon 01-05 [facility] Interpretation and review of laboratory results Abnormal [facility] US CHEST EFFUSION SURVEYon 1 03-04-2023 US CHEST EFFUSION SURVEY * * *Final Report* * * DATE OF EXAM: Jan 03 2024 1:40PM [facility] 1234 - US CHEST EFFUSION SURVEY [...] pleural effusion and small LEFT pleural effusion. Putter In: [facility] Transcribe Date/Time: Jan 05 2024 10:39P Dictated by : FIORELLA RIVERA DO This examination was interpreted and the report reviewed and electronically signed by: FIORELLA RIVERA DO on Jan 05 2024 10:40PM EST [id number] Normal [facility] BACTERIA BAL AEROBE CULT on 12-23-2023 [facility] BACTERIA BAL AEROBE CULT CULTURE, BRONCH: No growth 2 days [facility] BACTERIA BAL AEROBE CULT GRAM STAIN: No organisms seen [facility] BACTERIA BAL AEROBE CULT Rare Polymorphonuclear leukocytes [facility] CC BACTERIA BAL AEROBE CULT Gram stain performed on cytospun specimen. [facility] Original Ordering Provider: QUINCY CHARLES [facility] ANE POSTPROC EVALon 024 ANES POSTPROC EVAL HNO ID: [id number] Author: EDUIN CA MD Service: Anesthesiology Author Type: Anesthesiologist Type: Anesthesia Postprocedure Evaluation Filed: 12/20/2023 14:15 Note Text: POST ANESTHESIA EVALUATION NOTE : 1980 Procedure Summary Date: 12/20/23 Room / Location: ENDO 02 / ENDO Anesthesia Start: 1337 [...] December 20, 2023 TIME: 2:15 PM CSN: [id number] [facility] ANES PRE-OPon 12-20-2023 ANES PRE-OP HNO ID: [id number] Author: EDUIN CA MD Service: Anesthesiology Author [...] Oncology (+) 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 Normal [facility] ASPERGILLUS GALACTOMANNAN BA Ryan 12-20-2023 ASPER. AG BAL,QUAL Negative Normal Negative [facility] Comment on above: Order Comment: Speci men Type: SPECIMEN OBTAINED BY LAVAGEOrdering Facility: [facility] Address: [address], [place] [address] Result Comment: Laurel rgillus Galactomannan antigen assay is used as [...] is required. Performed By: #### A SGALB ####[facility] LABCLIA [id number] [address] ASPERGILLUS GALACTOMANNAN 0.07 Index Value Normal <=0.49 [facility] Comment on above: Order Comment: Speci men Type: SPECIMEN OBTAINED BY LAVAGEOrdering Facility: [facility] Address: [address] [place] [address] Performed By: #### A SGALB ####[facility] LABCLIA [id number] [address] OF [facility] BAL MANUAL DIFFon 12-20-2023 DIF TTL, BA LAVAGE 100 cells counted Normal [facility] Comment on above: Order Comment: Speci men Type: SPECIMEN OBTAINED BY LAVAGEOrdering Facility: [facility] Address: [address] [place] [address] Performed By: #### Edwin MADISON, [id number] ####[facility] LABCLIA [id number] [place] [address] [place] LYMPH%, BA LAVAGE 18 % Normal [facility] spital Comment on above: Order Comment: Speci men Type: SPECIMEN OBTAINED BY LAVAGEOrdering Facility: [facility] Address: [address] [place] [address] Performed By: #### Edwin MADISON [id number] ####[facility] LABCLIA [id number] [place] [address] [place] MACRO%, BA LAVAGE 79 % Normal [facility] spital Comment on above: Order Comment: Speci men Type: SPECIMEN OBTAINED BY LAVAGEOrdering Facility: [facility] Address: [address] [place] [address] Performed By: #### Edwin MADISON, [id number] ####[facility] LABCLIA [id number] [place] [address] [place] NEUT%, BA LAVAGE 3 % Normal [facility] Comment on above: Order Comment: Speci men Type: SPECIMEN OBTAINED BY LAVAGEOrdering Facility: [facility] Address: [address] [place] [address] Performed By: #### Edwin MADISON [id number] ####[facility] LABCLIA [id number] [place] [address] [place] BAL ROUTINE BFLon 12-20-2023 BAL COMMENT Normal [facility] Comment on above: Order Comment: Speci men Type: SPECIMEN OBTAINED BY LAVAGEOrdering Facility: [facility] Address: [address] [place] [address] Result Comment: Coun t may be inaccurate due to Disintegration Performed By: #### Edwin MADISON [id number] ####[facility] LABCLIA [id number] [place] [address] [place] Clarity (Unsp spec) Clear Normal Clear [facility] Comment on above: Order Comment: Speci men Type: SPECIMEN OBTAINED BY LAVAGEOrdering Facility: [facility] Address: [address] [place] [address] Performed By: #### Edwin MADISON [id number] ####[facility] LABCLIA [id number] [place] [address] [place] Color (Bronch spec) Colorless Normal Colorless [facility] Comment on above: Order Comment: Speci men Type: SPECIMEN OBTAINED BY LAVAGEOrdering Facility: [facility] Address: [address] [place] [address] Performed By: #### Edwin MADISON, [id number] ####[facility] LABCLIA [id number] [facility] [place] [address] [place] RBC LM.HPF (BAL) [#/Area] 123 /uL Normal Reference range not established. [facility] Comment on above: Order Comment: Speci men Type: SPECIMEN OBTAINED BY LAVAGEOrdering Facility: [facility] Address: [address] [place] [address] Performed By: #### Edwin MADISON [id number] ####[facility] LABCLIA [id number] [place] [id number] [place] WBC Manual cnt (Bronch spec) [#/Vol] 180 /uL Normal Reference range not established. [facility] Comment on above: Order Comment: Speci men Type: SPECIMEN OBTAINED BY LAVAGEOrdering Facility: [facility] Address: [address] [place] [address] Performed By: #### B LOS [id number] ####[facility] LABCLIA [id number] [place] [address] [place] Bacteria BAL Aerobe Culton 1 02-18-2023 Bacteria identified Aer cx Nom (BAL) CULTURE, BRONCH: No growth 2 days GRAM STAIN: No organisms seen Rare Polymorphonuclear leukocytes Gram stain performed on cytospun specimen. Normal [facility] Comment on above: Performed By: #### 4 3441-5, 580-1, 26972-4 ####[facility] LABCLIA [id number] [place] [address] [place] Basic metabolic 2000 panelon 12-20-2023 Anion gap [Moles/Vol] 9 mmol/L Normal 8-15 [facility] Comment on above: Order Comment: Speci men Type: BLOOD SPECIMENOrdering Facility: [facility] Address: [address] [place] [address] Performed By: #### 2 4321-2 ####[facility] LABORATORYCLIA [id number] [place] [address] [place] Calcium [Mass/Vol] 9.8 mg/dL Normal 8.5-10.2 [facility] Comment on above: Order Comment: Speci men Type: BLOOD SPECIMENOrdering Facility: [facility] Address: [address] [place] [address] Performed By: #### 2 4321-2 ####[facility] LABORATORYCLIA [id number] [place] [address] [place] Chloride [Moles/Vol] 103 mmol/L Normal 98-107 [facility] Comment on above: Order Comment: Speci men Type: BLOOD SPECIMENOrdering Facility: [facility] Address: [address] [place] [address] Performed By: #### 2 4321-2 ####[facility] LABORATORYCLIA [id number] [place] [address] [place] CO2 [Moles/Vol] 30 mmol/L Normal 22-30 [facility] Comment on above: Order Comment: Speci men Type: BLOOD SPECIMENOrdering Facility: [facility] Address: [address] [place] [address] Performed By: #### 2 4321-2 ####[facility]ITALCLIA [id number] [address] [place] Creatinine [Mass/Vol] 0.75 mg/dL Normal 0.58-0.96 [facility] Comment on above: Order Comment: Speci men Type: BLOOD SPECIMENOrdering Facility: [facility] Address: [address] [place] [address] Performed By: #### 2 4321-2 ####[facility] LABORATORYIA [id number] [address] Creatinine and Glomerular filtration rate.predicted panel (S/P/Bld) 103 mL/min/1.73m??? Normal >=60 [facility] l Comment on above: Order Comment: Speci men Type: BLOOD SPECIMENOrdering Facility: [facility] Address: [address] [place] [address] Result Comment: Purnima mated Glomerular Filtration Rate [...] actual GFR. Performed By: #### 2 4321-2 ####[facility] LABORATORYCLIA [id number] [place] [address] [place] Glucose [Mass/Vol] 106 mg/dL High 74-99 [facility] Comment on above: Order Comment: Speci men Type: BLOOD SPECIMENOrdering Facility: [facility] Address: [address] [place] [address] Result Comment: The [place] Diabetes [employer] (ADA) provides guidance for cutoff [...] Standards of Medical Care in Diabetes 2016, [place] Diabetes Association. Diabetes Care. 2016.39(Suppl 1). Performed By: #### 2 4321-2 ####[facility] LABORATORYCLIA [id number] [place] [address] [place] Potassium [Moles/Vol] 4.0 mmol/L Normal 3.7-5.1 [facility] Comment on above: Order Comment: Speci men Type: BLOOD SPECIMENOrdering Facility: [facility] Address: [address] [place] [address] Performed By: #### 2 4321-2 ####[facility] LABORATORYIA [id number] [place] [address] [place] Sodium [Moles/Vol] 142 mmol/L Normal 136-144 [facility] Comment on above: Order Comment: Speci men Type: BLOOD SPECIMENOrdering Facility: [facility] Address: [address] [place] [address] Performed By: #### 2 4321-2 ####[facility] LABORATORYIA [id number] [place] [address] [place] Urea nitrogen [Mass/Vol] 13 mg/dL Normal 7-21 [facility] Comment on above: Order Comment: Speci men Type: BLOOD SPECIMENOrdering Facility: [facility] Address: [address] [place] [address] Performed By: #### 2 4321-2 ####[facility] [id number] [place] [address] [place] CBC panel Auto (Bld)on 12-19 Erythrocyte distribution width (RBC) [Ratio] 13.2 % Normal 11.5-15.0 [facility] Comment on above: Order Comment: Speci men Type: BLOOD SPECIMENOrdering Facility: [facility] Address: [address] [place] [address] Performed By: #### 5 8410-2 ####[facility] [id number] [address] [place] Hematocrit (Bld) [Volume fraction] 44.7 % Normal 36.0-46.0 [facility] Comment on above: Order Comment: Speci men Type: BLOOD SPECIMENOrdering Facility: [facility] Address: [address] [place] [address] Performed By: #### 5 8410-2 ####[facility]ITAL[facility] [id number] [place] [address] [place] Hemoglobin (Bld) [Mass/Vol] 14.4 g/dL Normal 11.5-15.5 [facility] Comment on above: Order Comment: Speci men Type: BLOOD SPECIMENOrdering Facility: [facility] Address: [address] [place] [address] Performed By: #### 5 8410-2 ####[facility] LABORATORYIA [id number] [place] [address] [place] MCH (RBC) [Entitic mass] 31.0 pg Normal 26.0-34.0 [facility] Comment on above: Order Comment: Speci men Type: BLOOD SPECIMENOrdering Facility: [facility] Address: [address] [place] [address] Performed By: #### 5 8410-2 ####[facility] LABORATORYIA [id number] [place] [address] [place] MCHC (RBC) [Mass/Vol] 32.2 g/dL Normal 30.5-36.0 [facility] Comment on above: Order Comment: Speci men Type: BLOOD SPECIMENOrdering Facility: [facility] Address: [address] [place] [address] Performed By: #### 5 8410-2 ####[facility] LABORATORYIA [id number] [place] [id number] [place] MCV (RBC) [Entitic vol] 96.1 fL Normal 80.0-100.0 [facility] Comment on above: Order Comment: Speci men Type: BLOOD SPECIMENOrdering Facility: [facility] Address: [address] [place] [address] Performed By: #### 5 8410-2 ####[facility] [id number] [place] [address] [place] Nucleated RBC (Bld) [#/Vol] 10*3/uL Normal <0.01 [facility] Comment on above: Order Comment: Speci men Type: BLOOD SPECIMENOrdering Facility: [facility] Address: [address] [place] [address] Performed By: #### 5 8410-2 ####[facility] [id number] [place] [address] [place] Platelet mean volume (Bld) [Entitic vol] 9.4 fL Normal 9.0-12.7 [facility] Comment on above: Order Comment: Speci men Type: BLOOD SPECIMENOrdering Facility: [facility] Address: [address] [place] [address] Performed By: #### 5 8410-2 ####[facility] [id number] [place] [address] [place] Platelets (Bld) [#/Vol] 325 10*3/uL Normal 150-400 [facility] Comment on above: Order Comment: Speci men Type: BLOOD SPECIMENOrdering Facility: [facility] Address: [address] [place] [address] Performed By: #### 5 8410-2 ####[facility] LABORATORYCLIA [id number] [place] [address] [facility] RBC (Bld) [#/Vol] 4.65 10*6/uL Normal 3.90-5.20 [facility] Comment on above: Order Comment: Speci men Type: BLOOD SPECIMENOrdering Facility: [facility] Address: [address] [place], [place] [address] Performed By: #### 5 8410-2 ####[facility] LABORATORYCLIA [id number] [place] [address] [facility] WBC (Bld) [#/Vol] 7.52 10*3/uL Normal 3.70-11.00 [facility] Comment on above: Order Comment: Speci men Type: BLOOD SPECIMENOrdering Facility: [facility] Address: [address] [place], [place] [address] Performed By: #### 5 8410-2 ####[facility] LABORATORYCLIA [id number] [place] [address] [facility] CNDSon 12-20-2023 CNDS HNO ID: [id number] Author: CARLOS CASTELLON MD Service: Hospital Medicine [...] the summary. TRANSITIONS OF CARE CRITICAL ISSUES: OSORIO MEDICATION CHANGES: None FOLLOW UP APPOINTMENTS: Pulmonary LABS AND PROCEDURES PENDING AT DISCHARGE: bronch specimens/path REASON FOR HOSPITALIZATION/PRINCIPAL DIAGNOSES: Hypoxia HOSPITAL PROBLEMS: Principal Problem (Resolved): [...] (most recent episode on October, treated at [facility]) with persistent shortness of breath, new oxygen requirements 3 L with exertion, ground glass changes on most recent PET/CT who was sent in to the ED by her bench inspector to be admitted in the hospital for [...] Provider Department Center 12/23/2023 2:30 PM Irene Han, LORY.FORM RAISER PMAMHE [facility] [place] 12/26/2023 8:30 AM Kodi Pantoja MD PAINLN [facility] [place] 12/27/2023 7:45 AM ARRIVAL TIME RADIOLOGY PETSAN Tn Steff 01/03/2024 1:30 PM [facility] 01/03/2024 2:20 PM Korina Vega MD CARINF Rej 01/14/2024 8:30 AM 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 APRN.FORM RAISER PULMLO [facility] [place] 02/10/2024 2:45 PM LAB HEMRAD STEFF LABSAN [facility] 02/10/2024 3:00 PM Ruperto Ledezma MD HEMABIGAIL [facility] 04/27/2024 10:15 AM [facility] 05/04/2024 10:00 AM Ruperto Ledezma MD HEMASA [facility] ALLERGIES Allergen Reactions Chlorhexidine Itching Severe skin irritation. Had used for central line care Sulfa (Sulfonamide * Rash DISCHARGE MEDICATION: Medication List CONTINUE taking these medications atenolol 50 mg tablet Commonly known as: TENORMIN take 1 tablet by mouth twice a day B COMPLEX PLUS VITAMIN C 33-84-34-5-300 mg Cap Generic drug: Vitamin B Comp [...] DUONEB in (more content not included)... Normal [facility] CONSULT PROGon 12-20-2023 CONSULT PROG HNO ID: [id number] Author: QUINCY KANG MD Service: Pulmonary Disease [...] copied and pasted (more content not included)... [facility] CYTOLOGY NON-GYNon CASE REPORT [facility] Comment on above: Order Comment: Speci men Type: SPECIMEN OBTAINED BY LAVAGEOrdering Facility: [facility] Address: [address] [place] [address] Result Comment: [facility] Cytology Report Case: [id number] Authorizing Provider: Quincy Kang MD Collected: 12/20/2023 01:53 PM Ordering Location: Procedures Received: 12/20/2023 02:31 PM Pathologist: Rosmery Franz MD Specimen: Bronchoalveolar Lavage, Right upper lobe Performed By: #### C YTONON ####[facility] LABCLIA [id number] [place] [address] [place] CLINICAL HISTORY Normal [facility] Comment on above: Order Comment: Speci men Type: SPECIMEN OBTAINED BY LAVAGEOrdering Facility: [facility] Address: [address] [place] [address] Result Comment: Pre- op diagnosis: Pulmonary infiltrates [R91.8] Performed By: #### C YTONON ####[facility] LABCLIA [id number] FINAL DIAGNOSIS Normal [facility] Comment on above: Order Comment: Speci men Type: SPECIMEN OBTAINED BY LAVAGEOrdering Facility: [facility] Address: [address] [place] [address] Result Comment: A - Bronchoalveolar Lavage, Lavage - Right upper lobe Negative for malignant cells. Performed By: #### C YTONON ####[facility] LABCLIA [id number] [address] FINAL PERFORMING LAB Normal [facility] Comment on above: Order Comment: Speci men Type: SPECIMEN OBTAINED BY LAVAGEOrdering Facility: [facility] Address: [address] [place] [address] Result Comment: Tech nical component, spray painting machine operator screening performed at [facility], [address] [place] [address] CLIA# [id number] Diagnostic interpretation performed at [facility], [address] [place] [address] CLIA# [id number] Electrophysiology Technologist: Pavan Palm M.D. Performed By: #### C YTONON ####[facility] LABCLIA [id number] [address] GROSS DESCRIPTION Normal [facility] Comment on above: Order Comment: Speci men Type: SPECIMEN OBTAINED BY LAVAGEOrdering Facility: [facility] Address: [address] [place] [address] Result Comment: A. B ronchoalveolar Lavage 20 cc cloudy colorless fluid . ThinPrep prepared. Performed By: #### C YTONON ####[facility] LABCLIA [id number] [address] [place] ORDER COMMENT Normal [facility] Comment on above: Order Comment: Speci men Type: SPECIMEN OBTAINED BY LAVAGEOrdering Facility: [facility] Address: [address] [place] [address] Result Comment: Pre- op diagnosis: Pulmonary infiltrates [R91.8] Performed By: #### C YTONON ####[facility] LABCLIA [id number] [address] [place] Fungus Spec Culton 4 Fungus identified Cx Nom (Unsp spec) CULTURE, FUNGAL: No Fungus isolated after 28 days Normal [facility] Comment on above: Performed By: #### 4 3441-5, 580-1, 56129-9 ####[facility] LABCLIA [id number] [place] [address] [place] HCG Preg Ur Qlon 12-20-2023 HCG ( test) Ql (U) Negative Normal Negative [facility] Comment on above: Order Comment: Speci men Type: URINE SPECIMENOrdering Facility: [facility] Address: [address] [place] [address] Result Comment: This test is intended to aid in the early detection of . Very dilute urine samples, as indicated by a low specific gravity, may not contain international sales representative levels of hCG. This test [...] for . Performed By: #### 2 106-3 ####[facility] LABORATORYCLIA [id number] [facility] [place] [address] [place] HISTORY PHYSICALon 4 HISTORY PHYSICAL HNO ID: [id number] Author: QUINCY KANG MD Service: Pulmonary Disease Author Type: Physician Type: H&P Filed: 12/20/2023 10:27 Note Text: UPDATED HISTORY AND PHYSICAL EXAMINATION SERVICE DATE: 12/20/2023 SERVICE TIME: 10 AM SENSITIVE EXAMINATION CONSENT: The sensitive examination was discussed with the Patient or Patient's Authorized Dental Director. As applicable, any other physician, advance practice provider, medical student, or other health professional student that will be observing or involved in the sensitive examination for educational or training purposes was discussed with the Patient or Authorized Dental Director. The Patient or Authorized Dental Director has agreed to proceed with the sensitive [...] December 20, 2023 TIME: 10:27 AM Normal [facility] L. pneumophila DNA TARA+probe Ql (Unsp spec)on 12-20-2023 Legionella spp Spec Ql TARA+probe Not detected Normal Not detected [facility] Comment on above: Order Comment: Speci men Type: SPECIMEN OBTAINED BY LAVAGEOrdering Facility: [facility] Address: [address] [place] [address] Performed By: #### 2 1363-7 ####[facility] LABCLIA [id number] [place] [address] [place] Microorganism Spec Culton Microorganism identified Cx Nom (Unsp spec) CULTURE, AFB: No Acid Fast Bacilli isolated after 42 days AFB STAIN: No acid fast bacilli seen by fluorochrome stain Normal [facility] Comment on above: Performed By: #### 4 3441-5, 580-1, 70998-0 ####[facility] LABCLIA [id number] [place] [address] [place] PNEUMOCYSTIS JIROVECII PCRon 12-20-2023 P. jiroveci DNA TARA+probe (Unsp spec) [#/Vol] Not detected Normal Pneumocystis jirovecii Not Detected by PCR [facility] Comment on above: Order Comment: Speci men Type: SPECIMEN OBTAINED BY LAVAGEOrdering Facility: [facility] Address: [address] [place] [address] Performed By: #### P [facility] ####[facility] LABCLIA [id number] [id number] [address] [place] PT panel Coag (PPP)on 2023 INR Coag (PPP) [Relative time] 1.0 {INR} Normal 0.9-1.3 [facility] Comment on above: Order Comment: Speci men Type: BLOOD SPECIMENOrdering Facility: [facility] Address: [address] [place] [address] Result Comment: Abbi min K Antagonist (VKA) Therapeutic Range: INR 2 to 3 (Target INR of 2.5) Note: For patients treated with VKA drugs, such as warfarin, the [place] [employer] 2012 Guideline recommends [...] Chest 2012, 141:7S-47S Keiry RA, et al. [employer] 2017, 70: 252-289 Performed By: #### 3 4528-0 ####[facility] LABORATORYCLIA [id number] [facility] [place] [address] [place] PT Coag (PPP) [Time] 10.6 s Normal 9.7-13.0 [facility] Comment on above: Order Comment: Speci men Type: BLOOD SPECIMENOrdering Facility: [facility] Address: [address] [place] [address] Performed By: #### 3 4528-0 ####[facility] LABORATORYIA [id number] [place] [address] [place] Respiratory pathogens DNA an d RNA panel TARA+probe (Nph)on 12-20-2023 Adenovirus hexon gene TARA+probe Ql (Nph) Not detected Normal Not detected [facility] Comment on above: Order Comment: Speci men Type: SPECIMEN OBTAINED BY LAVAGEOrdering Facility: [facility] Address: [address] [place] [address] Performed By: #### 7 8922-2 ####[facility] LABCLIA [id number] [place] [address] [place] C. pneumoniae DNA TARA+probe Ql (Unsp spec) Not detected Normal Not detected [facility] Comment on above: Order Comment: Speci men Type: SPECIMEN OBTAINED BY LAVAGEOrdering Facility: [facility] Address: [address] [place] [address] Performed By: #### 7 8922-2 ####[facility] LABCLIA [id number] [place] [address] [place] FLUAV RNA TARA+probe Ql (Unsp spec) Not detected Normal Not detected [facility] Comment on above: Order Comment: Speci men Type: SPECIMEN OBTAINED BY LAVAGEOrdering Facility: [facility] Address: [address] [place] [address] Performed By: #### 7 8922-2 ####[facility] LABIA [id number] [place] [address] [place] FLUBV RNA TARA+probe Ql (Unsp spec) Not detected Normal Not detected [facility] Comment on above: Order Comment: Speci men Type: SPECIMEN OBTAINED BY LAVAGEOrdering Facility: [facility] Address: [address] [place] [address] Performed By: #### 7 8922-2 ####[facility] LABCLIA [id number] [place] [address] [place] HCoV 229E+OC43 RNA TARA+probe Ql (Nph) Not detected Normal Not detected [facility] Comment on above: Order Comment: Speci men Type: SPECIMEN OBTAINED BY LAVAGEOrdering Facility: [facility] Address: [address] [place] [address] Performed By: #### 7 8922-2 ####[facility] LABCLIA [id number] [place] [address] [place] HCoV HKU1 RNA TARA+probe Ql (Unsp spec) Not detected Normal Not detected [facility] Comment on above: Order Comment: Speci men Type: SPECIMEN OBTAINED BY LAVAGEOrdering Facility: [facility] Address: [address] [place] [address] Performed By: #### 7 8922-2 ####[facility] LABCLIA [id number] [place] [address] [place] HCoV NL63 RNA TARA+non-probe Ql (Nph) Not detected Normal Not detected [facility] Comment on above: Order Comment: Speci men Type: SPECIMEN OBTAINED BY LAVAGEOrdering Facility: [facility] Address: [address] [place] [address] Performed By: #### 7 8922-2 ####[facility] LABCLIA [id number] [place] [address] [place] HCoV OC43 RNA TARA+probe Ql (Unsp spec) Not detected Normal Not detected [facility] Comment on above: Order Comment: Speci men Type: SPECIMEN OBTAINED BY LAVAGEOrdering Facility: [facility] Address: [address] [place] [address] Performed By: #### 7 8922-2 ####[facility] LABCLIA [id number] [place] [address] [place] hMPV RNA TARA+probe Ql (Unsp spec) Not detected Normal Not detected [facility] Comment on above: Order Comment: Speci men Type: SPECIMEN OBTAINED BY LAVAGEOrdering Facility: [facility] Address: [address] [place] [address] Performed By: #### 7 8922-2 ####[facility] LABCLIA [id number] [place] [address] [place] M. pneumoniae DNA TARA+probe Ql (Unsp spec) Not detected Normal Not detected [facility] Comment on above: Order Comment: Speci men Type: SPECIMEN OBTAINED BY LAVAGEOrdering Facility: [facility] Address: [address] [place] [address] Performed By: #### 7 8922-2 ####[facility] LABCLIA [id number] [place] [address] [place] Parainfluenza virus 1 RNA TARA+probe Ql (Unsp spec) Not detected Normal Not detected [facility] Comment on above: Order Comment: Speci men Type: SPECIMEN OBTAINED BY LAVAGEOrdering Facility: [facility] Address: [address] [place] [address] Performed By: #### 7 8922-2 ####[facility] LABCLIA [id number] [place] [address] [place] Parainfluenza virus 2 RNA TARA+probe Ql (Unsp spec) Not detected Normal Not detected [facility] Comment on above: Order Comment: Speci men Type: SPECIMEN OBTAINED BY LAVAGEOrdering Facility: [facility] Address: [address] [place] [address] Performed By: #### 7 8922-2 ####[facility] LABCLIA [id number] [place] [address] [place] Parainfluenza virus 3 RNA TARA+probe Ql (Unsp spec) Not detected Normal Not detected [facility] Comment on above: Order Comment: Speci men Type: SPECIMEN OBTAINED BY LAVAGEOrdering Facility: [facility] Address: [address] [place] [address] Performed By: #### 7 8922-2 ####[facility] LABCLIA [id number] [place] [address] [place] Parainfluenza virus 4 P gene TARA+probe Ql (Nph) Not detected Normal Not detected [facility] Comment on above: Order Comment: Speci men Type: SPECIMEN OBTAINED BY LAVAGEOrdering Facility: [facility] Address: [address] [place] [address] Performed By: #### 7 8922-2 ####[facility] LABCLIA [id number] [place] [address] [place] Rhinovirus 5' UTR RNA TARA+probe Ql (Nph) Not detected Normal Not detected [facility] Comment on above: Order Comment: Speci men Type: SPECIMEN OBTAINED BY LAVAGEOrdering Facility: [facility] Address: [address] [place] [address] Performed By: #### 7 8922-2 ####[facility] LABIA [id number] [place] [address] [place] RSV RNA TARA+probe Ql (Upper resp) Not detected Normal Not detected [facility] Comment on above: Order Comment: Speci men Type: SPECIMEN OBTAINED BY LAVAGEOrdering Facility: [facility] Address: [address] [place] [address] Performed By: #### 7 8922-2 ####[facility] LABIA [id number] [place] [address] [place] SARS-CoV-2 (COVID-19) RNA TARA+probe Ql (Unsp spec) Not detected Normal See comment [facility] Comment on above: Order Comment: Speci men Type: SPECIMEN OBTAINED BY LAVAGEOrdering Facility: [facility] Address: [address] [place] [address] Performed By: #### 7 8922-2 ####[facility] LABIA [id number] [place] [address] [place] Basic metabolic 2000 panelon 12-19-2023 Anion gap [Moles/Vol] 8 mmol/L Normal 8-15 [facility] Comment on above: Order Comment: Speci men Type: BLOOD SPECIMENOrdering Facility: [facility] Address: [address] [place] [address] Performed By: #### 2 4321-2, 37813-1 ####[facility] LABORATORYCLIA [id number] [place] [address] [place] Calcium [Mass/Vol] 8.4 mg/dL Low 8.5-10.2 [facility] Comment on above: Order Comment: Speci men Type: BLOOD SPECIMENOrdering Facility: [facility] Address: [address] [place] [address] Performed By: #### 2 4321-2, 27098-7 ####[facility] LABORATORYCLIA [id number] [place] [address] [place] Chloride [Moles/Vol] 109 mmol/L High 98-107 [facility] Comment on above: Order Comment: Speci men Type: BLOOD SPECIMENOrdering Facility: [facility] Address: [address] [place] [address] Performed By: #### 2 4321-2, 35246-8 ####[facility]ITAL[facility] [id number] [place] [address] [place] CO2 [Moles/Vol] 27 mmol/L Normal 22-30 [facility] Comment on above: Order Comment: Speci men Type: BLOOD SPECIMENOrdering Facility: [facility] Address: [address] [place] [address] Performed By: #### 2 4321-2, 35357-0 ####[facility] LABORATORYIA [id number] [place] [address] [place] Creatinine [Mass/Vol] 0.63 mg/dL Normal 0.58-0.96 [facility] Comment on above: Order Comment: Speci men Type: BLOOD SPECIMENOrdering Facility: [facility] Address: [address] [place] [address] Performed By: #### 2 4321-2, 01206-0 ####[facility] LABORATORYIA [id number] [place] [address] [place] Creatinine and Glomerular filtration rate.predicted panel (S/P/Bld) 114 mL/min/1.73m??? Normal >=60 [facility] l Comment on above: Order Comment: Nicole toribio Type: BLOOD SPECIMENOrdering Facility: [facility] Address: [address] [place] [address] Result Comment: Purnima mated Glomerular Filtration Rate [...] actual GFR. Performed By: #### 2 4321-2, 88273-6 ####[facility]PITALCLIA [id number] [place] [address] [place] Glucose [Mass/Vol] 106 mg/dL High 74-99 [facility] Comment on above: Order Comment: Nicole toribio Type: BLOOD SPECIMENOrdering Facility: [facility] Address: [address] [place] [address] Result Comment: The [place] Diabetes Association (ADA) provides guidance for cutoff [...] Standards of Medical Care in Diabetes 2016, [place] [employer]. Diabetes Care. 2016.39(Suppl 1). Performed By: #### 2 4321-2, 39092-1 ####[facility] LABORATORYCLIA [id number] [place] [address] [place] Potassium [Moles/Vol] 3.5 mmol/L Low 3.7-5.1 [facility] Comment on above: Order Comment: Nicole toribio Type: BLOOD SPECIMENOrdering Facility: [facility] Address: [address] [place] [address] Performed By: #### 2 4321-2, 25166-6 ####[facility] LABORATORYCLIA [id number] [place] [address] [place] Sodium [Moles/Vol] 144 mmol/L Normal 136-144 [facility] Comment on above: Order Comment: Speci men Type: BLOOD SPECIMENOrdering Facility: [facility] Address: [address] [place] [address] Performed By: #### 2 4321-2, 86581-4 ####[facility] LABORATORYCLIA [id number] [place] [address] [place] Urea nitrogen [Mass/Vol] 10 mg/dL Normal 7-21 [facility] Comment on above: Order Comment: Speci men Type: BLOOD SPECIMENOrdering Facility: [facility] Address: [address] [place] [address] Performed By: #### 2 4321-2, 68070-0 ####[facility] LABORATORYIA [id number] [place], [place] [address] [place] [address] [place] CBC panel Auto (Bld)on 12-18 Erythrocyte distribution width (RBC) [Ratio] 13.2 % Normal 11.5-15.0 [facility] Comment on above: Order Comment: Speci men Type: BLOOD SPECIMENOrdering Facility: [facility] Address: [address] [place] [address] Performed By: #### 5 8410-2 ####[facility] LABORATORYCLIA [id number] [place] [address] [place] Hematocrit (Bld) [Volume fraction] 40.5 % Normal 36.0-46.0 [facility] Comment on above: Order Comment: Speci men Type: BLOOD SPECIMENOrdering Facility: [facility] Address: [address] [place] [address] Performed By: #### 5 8410-2 ####[facility] LABORATORYCLIA [id number] [place] [address] [place] Hemoglobin (Bld) [Mass/Vol] 13.6 g/dL Normal 11.5-15.5 [facility] Comment on above: Order Comment: Speci men Type: BLOOD SPECIMENOrdering Facility: [facility] Address: [address] [place] [address] Performed By: #### 5 8410-2 ####[facility] LABORATORYCLIA [id number] [place] [address] [place] MCH (RBC) [Entitic mass] 31.8 pg Normal 26.0-34.0 [facility] Comment on above: Order Comment: Speci men Type: BLOOD SPECIMENOrdering Facility: [facility] Address: [address] [place] [address] Performed By: #### 5 8410-2 ####[facility] LABORATORYIA [id number] [address] [place] MCHC (RBC) [Mass/Vol] 33.6 g/dL Normal 30.5-36.0 [facility] Comment on above: Order Comment: Speci men Type: BLOOD SPECIMENOrdering Facility: [facility] Address: [address] [place] [address] Performed By: #### 5 8410-2 ####[facility] LABORATORYIA [id number] [address] [place] MCV (RBC) [Entitic vol] 94.6 fL Normal 80.0-100.0 [facility] Comment on above: Order Comment: Speci men Type: BLOOD SPECIMENOrdering Facility: [facility] Address: [address] [place] [address] Performed By: #### 5 8410-2 ####[facility] LABORATORYIA [id number] [address] [place] Nucleated RBC (Bld) [#/Vol] 10*3/uL Normal <0.01 [facility] Comment on above: Order Comment: Speci men Type: BLOOD SPECIMENOrdering Facility: [facility] Address: [address] [place] [address] Performed By: #### 5 8410-2 ####[facility] LABORATORYIA [id number] [place] [address] [place] Platelet mean volume (Bld) [Entitic vol] 9.0 fL Normal 9.0-12.7 [facility] Comment on above: Order Comment: Speci men Type: BLOOD SPECIMENOrdering Facility: [facility] Address: [address] [place] [address] Performed By: #### 5 8410-2 ####[facility] LABORATORYCLIA [id number] [place] [address] [place] Platelets (Bld) [#/Vol] 285 10*3/uL Normal 150-400 [facility] Comment on above: Order Comment: Speci men Type: BLOOD SPECIMENOrdering Facility: [facility] Address: [address] [place] [address] Performed By: #### 5 8410-2 ####[facility]ITALIA [id number] [place] [address] [place] RBC (Bld) [#/Vol] 4.28 10*6/uL Normal 3.90-5.20 [facility] Comment on above: Order Comment: Speci men Type: BLOOD SPECIMENOrdering Facility: [facility] Address: [address] [place] [address] Performed By: #### 5 8410-2 ####[facility] LABORATORYIA [id number] [place] [address] [place] WBC (Bld) [#/Vol] 6.04 10*3/uL Normal 3.70-11.00 [facility] Comment on above: Order Comment: Speci men Type: BLOOD SPECIMENOrdering Facility: [facility] Address: [address] [place] [address] Performed By: #### 5 8410-2 ####[facility] LABORATORYIA [id number] [facility] [place] [address] [facility] [place] CONSULTon 12-19-2023 CONSULT HNO ID: [id number] Author: QUINCY KANG MD Service: Pulmonary Disease [...] infection this year. Most recently treated at [facility] on 10/28. Since that time she has [...] Sclerosis Mother Coronary Artery Disease Maternal Grandfather [place] age 36 Coronary Artery Disease Paternal Grandfather [...] 5 DAYSDisp: Rfl: (more content not included)... [facility] ED NOTEon 12-19-2023 ED NOTE HNO ID: [id number] Author: SIMRAN BOB RN Service: ? Author Type: Registered Nurse Type: ED Notes Filed: 12/19/2023 07:10 Note Text: Report given to MAE Fields [facility] ED PROV NOTEon 12-19-2023 ED PROV NOTE HNO ID: [id number] Author: BETTY HORTON MD Service: Emergency Medicine [...] She states she was told by her bench inspector that she needs to have a bronchoscopy [...] Sclerosis Mother Coronary Artery Disease Maternal Grandfather [place] age 36 Coronary Artery Disease Paternal Grandfather [...] on ocp, 2012 Menopause ALLERGIES Allergen Reactions Chlorhexidine Itching Severe [...] uninfected indivi (more content not included)... Normal [facility] HIGH SENSITIVITY TROPONIN T (SECOND)on 12-19-2023 Troponin T.cardiac High sensitivity method [Mass/Vol] 13 ng/L High <12 [facility] Comment on above: Order Comment: Speci men Type: BLOOD SPECIMENOrdering Facility: [facility] Address: [address] [place] [address] Performed By: #### L [id number] ####[facility] LABORATORYCLIA [id number] [place] [address] [place] HISTORY PHYSICALon HISTORY PHYSICAL HNO ID: [id number] Author: CAL BLACKMON MD Service: Hospital Medicine Author Type: Physician Type: H&P Filed: 12/19/2023 07:04 Note Text: DEPARTMENT OF HOSPITAL MEDICINE HISTORY AND PHYSICAL EXAM SERVICE DATE: 12/19/2023 SERVICE TIME: 1:53 AM Primary Care Physician: Bee Vail MD NIGHT AND WEEKEND COVERAGE: JESS COVERAGE: Days: [phone], please contact via [employer] Nights: - 3rd floor: please page [facility] night cover [phone] - 4W: please page [facility] night cover #[phone] - 5th floor: please page [facility] night cover #[phone] - SDU (17:00 - 19:00): Please page #[phone] - SDU (19:00 - 07:00): Please call [facility] at [phone] Subjective CHIEF COMPLAINT: Recurrent pneumonia and new oxygen requirement HPI: This is a 43 year old female with history of Lymphoma (completed Immunotherapy in September 2023), pulmonary embolism in 2012 on Xarelto, Depression/Anxiety, GERD, chemotherapy-induced neuropathy, recurrent pneumonia (most recent episode on October, treated at [facility]) with persistent shortness of breath, new oxygen requirements 3 L with exertion, ground glass changes on most recent PET/CT who was sent in to the ED by her bench inspector to be admitted in the hospital for [...] Sclerosis Mother Coronary Artery Disease Maternal Grandfather [place] age 36 Coronary Artery Disease Paternal Grandfather [...] Yes) Autologou (more content not included)... Normal [facility] Procalcitonin SerPl-mCncon 1 Procalcitonin [Mass/Vol] ng/mL Normal <0.09 [facility] Comment on above: Order Comment: Speci men Type: BLOOD SPECIMENOrdering Facility: [facility] Address: [address] [place] [address] Result Comment: For a guided interpretation of test results, please visit the Change in Procalcitonin Calculator, [email or web address]. Performed By: #### 2 4321-2, 75464-9 ####[facility] LABORATORYCLIA [id number] [place] [address] [place] CBC W Auto Differential pane l (Bld)on 12-18-2023 Basophils (Bld) [#/Vol] 10*3/uL Normal <0.11 [facility] Comment on above: Order Comment: Nicole toribio Type: BLOOD SPECIMENOrdering Facility: [facility] Address: [address] [place] [address] Performed By: #### 5 7021-8 ####[facility]ITALIA [id number] [place] [address] [place] Basophils/100 WBC (Bld) 0.3 % Normal [facility] Comment on above: Order Comment: Ellei malu Type: BLOOD SPECIMENOrdering Facility: [facility] Address: [address] [place] [address] Performed By: #### 5 7021-8 ####[facility] LABORATORYIA [id number] [place] [address] [place] Differential cell count method Nom (Bld) Auto Normal [facility] Comment on above: Order Comment: Ellei malu Type: BLOOD SPECIMENOrdering Facility: [facility] Address: [address] [place] [address] Performed By: #### 5 7021-8 ####[facility] LABORATORYIA [id number] [place] [address] [place] Eosinophils (Bld) [#/Vol] 0.21 10*3/uL Normal <0.46 [facility] Comment on above: Order Comment: Speci men Type: BLOOD SPECIMENOrdering Facility: [facility] Address: [address] [place] [address] Performed By: #### 5 7021-8 ####[facility] LABORATORYIA [id number] [place] [address] [place] Eosinophils/100 WBC (Bld) 3.2 % Normal [facility] Comment on above: Order Comment: Speci men Type: BLOOD SPECIMENOrdering Facility: [facility] Address: [address] [place] [address] Performed By: #### 5 7021-8 ####[facility] [id number] [address] [place] Erythrocyte distribution width (RBC) [Ratio] 13.1 % Normal 11.5-15.0 [facility] Comment on above: Order Comment: Speci men Type: BLOOD SPECIMENOrdering Facility: [facility] Address: [address] [place] [address] Performed By: #### 5 7021-8 ####[facility] [id number] [place] [address] [place] Hematocrit (Bld) [Volume fraction] 43.2 % Normal 36.0-46.0 [facility] Comment on above: Order Comment: Speci men Type: BLOOD SPECIMENOrdering Facility: [facility] Address: [address] [place] [address] Performed By: #### 5 7021-8 ####[facility] [id number] [place] [address] [place] Hemoglobin (Bld) [Mass/Vol] 14.1 g/dL Normal 11.5-15.5 [facility] Comment on above: Order Comment: Speci men Type: BLOOD SPECIMENOrdering Facility: [facility] Address: [address] [place] [address] Performed By: #### 5 7021-8 ####[facility] [id number] [place] [address] [place] Immature granulocytes (Bld) [#/Vol] 10*3/uL Normal <0.10 [facility] Comment on above: Order Comment: Speci men Type: BLOOD SPECIMENOrdering Facility: [facility] Address: [address] [place] [address] Performed By: #### 5 7021-8 ####[facility]ITALIA [id number] [place] [id number] [place] Immature granulocytes/100 WBC (Bld) 0.3 % Normal [facility] Comment on above: Order Comment: Speci men Type: BLOOD SPECIMENOrdering Facility: [facility] Address: [address] [place] [address] Performed By: #### 5 7021-8 ####[facility] [id number] [place] [address] [place] Lymphocytes (Bld) [#/Vol] 2.28 10*3/uL Normal 1.00-4.00 [facility] Comment on above: Order Comment: Speci men Type: BLOOD SPECIMENOrdering Facility: [facility] Address: [address] [place] [address] Performed By: #### 5 7021-8 ####[facility] [id number] [place] [address] [place] Lymphocytes/100 WBC (Bld) 34.8 % Normal [facility] Comment on above: Order Comment: Speci men Type: BLOOD SPECIMENOrdering Facility: [facility] Address: [address] [place] [address] Performed By: #### 5 7021-8 ####[facility] LABORATORYIA [id number] [place] [address] [place] MCH (RBC) [Entitic mass] 31.2 pg Normal 26.0-34.0 [facility] Comment on above: Order Comment: Speci men Type: BLOOD SPECIMENOrdering Facility: [facility] Address: [address] [place] [address] Performed By: #### 5 7021-8 ####[facility] LABORATORYIA [id number] [place] [address] [place] MCHC (RBC) [Mass/Vol] 32.6 g/dL Normal 30.5-36.0 [facility] Comment on above: Order Comment: Speci men Type: BLOOD SPECIMENOrdering Facility: [facility] Address: [address] [place] [address] Performed By: #### 5 7021-8 ####[facility] [id number] [place] [address] [place] MCV (RBC) [Entitic vol] 95.6 fL Normal 80.0-100.0 [facility] Comment on above: Order Comment: Speci men Type: BLOOD SPECIMENOrdering Facility: [facility] Address: [address] [place] [address] Performed By: #### 5 7021-8 ####[facility] [id number] [place] [address] [place] Monocytes (Bld) [#/Vol] 0.74 10*3/uL Normal <0.87 [facility] Comment on above: Order Comment: Speci men Type: BLOOD SPECIMENOrdering Facility: [facility] Address: [address] [place] [address] Performed By: #### 5 7021-8 ####[facility] LABORATORYIA [id number] [address] [place] Monocytes/100 WBC (Bld) 11.3 % Normal [facility] Comment on above: Order Comment: Speci men Type: BLOOD SPECIMENOrdering Facility: [facility] Address: [address] [place] [address] Performed By: #### 5 7021-8 ####[facility] LABORATORYCLIA [id number] [facility] [place] [address] [place] Neutrophils (Bld) [#/Vol] 3.28 10*3/uL Normal 1.45-7.50 [facility] Comment on above: Order Comment: Speci men Type: BLOOD SPECIMENOrdering Facility: [facility] Address: [address] [place] [address] Performed By: #### 5 7021-8 ####[facility] LABORATORYCLIA [id number] [place] [id number] [place] Neutrophils/100 WBC (Bld) 50.1 % Normal [facility] Comment on above: Order Comment: Speci men Type: BLOOD SPECIMENOrdering Facility: [facility] Address: [address] [place] [address] Performed By: #### 5 7021-8 ####[facility] [id number] [place] [address] [place] Nucleated RBC (Bld) [#/Vol] 10*3/uL Normal <0.01 [facility] Comment on above: Order Comment: Speci men Type: BLOOD SPECIMENOrdering Facility: [facility] Address: [address] [place] [address] Performed By: #### 5 7021-8 ####[facility] [id number] [place] [id number] [place] Nucleated RBC/100 WBC (Bld) [Ratio] 0.0 /100 WBC Normal [facility] Comment on above: Order Comment: Speci men Type: BLOOD SPECIMENOrdering Facility: [facility] Address: [address] [place] [address] Performed By: #### 5 7021-8 ####[facility] [id number] [place] [address] [place] Platelet mean volume (Bld) [Entitic vol] 9.2 fL Normal 9.0-12.7 [facility] Comment on above: Order Comment: Speci men Type: BLOOD SPECIMENOrdering Facility: [facility] Address: [address] [place] [address] Performed By: #### 5 7021-8 ####[facility] [id number] [place] [address] [facility] Platelets (Bld) [#/Vol] 340 10*3/uL Normal 150-400 [facility] Comment on above: Order Comment: Speci men Type: BLOOD SPECIMENOrdering Facility: [facility] Address: [address] [place] [address] Performed By: #### 5 7021-8 ####[facility] [id number] [place] [address] [place] RBC (Bld) [#/Vol] 4.52 10*6/uL Normal 3.90-5.20 [facility] Comment on above: Order Comment: Speci men Type: BLOOD SPECIMENOrdering Facility: [facility] Address: [address] [place] [address] Performed By: #### 5 7021-8 ####[facility] [id number] [place] [address] [place] WBC (Bld) [#/Vol] 6.55 10*3/uL Normal 3.70-11.00 [facility] Comment on above: Order Comment: Speci men Type: BLOOD SPECIMENOrdering Facility: [facility] Address: [address] [place] [address] Performed By: #### 5 7021-8 ####[facility] [id number] [place] [address] [facility] [facility] Comprehensive metabolic 2000 panelon 12-18-2023 Albumin [Mass/Vol] 4.2 g/dL Normal 3.9-4.9 [facility] Comment on above: Order Comment: Speci men Type: BLOOD SPECIMENOrdering Facility: [facility] Address: [address] [place] [address] Performed By: #### 2 4323-8 ####[facility] LABORATORYIA [id number] [place] [address] [place] ALP [Catalytic activity/Vol] 71 U/L Normal 34-123 [facility] Comment on above: Order Comment: Speci men Type: BLOOD SPECIMENOrdering Facility: [facility] Address: [address] [id number] Performed By: #### 2 4323-8 ####[facility] LABORATORYCLIA [id number] [place] [address] [place] ALT [Catalytic activity/Vol] 46 U/L High 7-38 [facility] Comment on above: Order Comment: Speci men Type: BLOOD SPECIMENOrdering Facility: [facility] Address: [address] [place] [address] Performed By: #### 2 4323-8 ####[facility] LABORATORYCLIA [id number] [place] [address] [place] Anion gap [Moles/Vol] 9 mmol/L Normal 8-15 [facility] Comment on above: Order Comment: Speci men Type: BLOOD SPECIMENOrdering Facility: [facility] Address: [address] [place] [address] Performed By: #### 2 4323-8 ####[facility] LABORATORYIA [id number] [place] [address] [place] AST [Catalytic activity/Vol] 45 U/L High 13-35 [facility] Comment on above: Order Comment: Speci men Type: BLOOD SPECIMENOrdering Facility: [facility] Address: [address] [place] [address] Performed By: #### 2 4323-8 ####[facility] LABORATORYCLIA [id number] [place] [address] [place] Bilirubin [Mass/Vol] 0.2 mg/dL Normal 0.2-1.3 [facility] Comment on above: Order Comment: Speci men Type: BLOOD SPECIMENOrdering Facility: [facility] Address: [address] [place] [address] Performed By: #### 2 4323-8 ####[facility] LABORATORYCLIA [id number] [place] [address] [place] Calcium [Mass/Vol] 9.7 mg/dL Normal 8.5-10.2 [facility] Comment on above: Order Comment: Speci men Type: BLOOD SPECIMENOrdering Facility: [facility] Address: [address] [place] [address] Performed By: #### 2 4323-8 ####[facility] LABORATORYCLIA [id number] [place] [address] [place] Chloride [Moles/Vol] 106 mmol/L Normal 98-107 [facility] Comment on above: Order Comment: Speci men Type: BLOOD SPECIMENOrdering Facility: [facility] Address: [address] [place] [address] Performed By: #### 2 4323-8 ####[facility] LABORATORYIA [id number] [place] [address] [place] CO2 [Moles/Vol] 27 mmol/L Normal 22-30 [facility] Comment on above: Order Comment: Speci men Type: BLOOD SPECIMENOrdering Facility: [facility] Address: [address] [place] [address] Performed By: #### 2 4323-8 ####[facility] [id number] [place] [address] [place] Creatinine [Mass/Vol] 0.72 mg/dL Normal 0.58-0.96 [facility] Comment on above: Order Comment: Speci men Type: BLOOD SPECIMENOrdering Facility: [facility] Address: [address] [place] [address] Performed By: #### 2 4323-8 ####[facility] LABORATORYIA [id number] [place] [address] [place] Creatinine and Glomerular filtration rate.predicted panel (S/P/Bld) 108 mL/min/1.73m??? Normal >=60 [facility] Comment on above: Order Comment: Speci men Type: BLOOD SPECIMENOrdering Facility: [facility] Address: [address] [place] [address] [place] [address] Result Comment: Purnima mated Glomerular Filtration Rate [...] actual GFR. Performed By: #### 2 4323-8 ####[facility]ITAL[facility] [id number] [place] [address] [place] Glucose [Mass/Vol] 97 mg/dL Normal 74-99 [facility] Comment on above: Order Comment: Nicole toribio Type: BLOOD SPECIMENOrdering Facility: [facility] Address: [address] [place] [address] Result Comment: The [place] Diabetes Association (ADA) provides guidance for cutoff [...] Standards of Medical Care in Diabetes 2016, [place] Diabetes Association. Diabetes Care. 2016.39(Suppl 1). Performed By: #### 2 4323-8 ####[facility]ITAL[facility] [id number] [place] [address] [place] Potassium [Moles/Vol] 4.1 mmol/L Normal 3.7-5.1 [facility] Comment on above: Order Comment: Nicole toriboi Type: BLOOD SPECIMENOrdering Facility: [facility] Address: [address] [place] [address] Performed By: #### 2 4323-8 ####[facility] LABORATORYIA [id number] [place] [address] [place] Protein [Mass/Vol] 6.8 g/dL Normal 6.3-8.0 [facility] Comment on above: Order Comment: Speci men Type: BLOOD SPECIMENOrdering Facility: [facility] Address: [address] [place] [address] Performed By: #### 2 4323-8 ####[facility] LABORATORYCLIA [id number] [place] [address] [place] Sodium [Moles/Vol] 142 mmol/L Normal 136-144 [facility] Comment on above: Order Comment: Speci men Type: BLOOD SPECIMENOrdering Facility: [facility] Address: [address] [place] [address] Performed By: #### 2 4323-8 ####[facility] LABORATORYCLIA [id number] [place] [address] [place] Urea nitrogen [Mass/Vol] 9 mg/dL Normal 7-21 [facility] Comment on above: Order Comment: Speci men Type: BLOOD SPECIMENOrdering Facility: [facility] Address: [address] [place], [place] [address] Performed By: #### 2 4323-8 ####[facility] LABORATORYCLIA [id number] [place] [address] [place] ECG COMPLETEon 12-18-2023 ECG COMPLETE Ventricular Rate : 1 01 BPM Atrial Rate : 101 BPM P-R Interval : 168 ms QRS Duration : 102 ms Q-T Interval : 354 ms QTC Calculation(Bazett) : 459 ms Calculated P Fulton : 59 degrees Calculated R Fulton : -38 degrees Calculated T Fulton : 30 degrees Sinus tachycardia Left axis deviation Minimal voltage criteria for LVH, may be normal variant Cannot rule out Anterior infarct , age undetermined Abnormal ECG 1937 NO STEMI Confirmed by SAEED HUDDLESTON MD ([id number]), purchasing expeditor SHERIN DELACRUZ ([id number]) on 12/19/2023 9:38:42 AM NAME : CELSO WELLER PID : [id number] : 1980 Gender : Female Race : ORD : [id number] Procedure Date : Dec 18 2023 19:31:27 Edit Date : Dec 19 2023 09:38:44 Diagnosis: Sinus tachycardia Left axis deviation Minimal voltage criteria for LVH, may be normal variant Cannot rule out Anterior infarct , age undetermined Abnormal ECG 1937 NO STEMI Confirmed by SAEED HUDDLESTON MD ([id number]), purchasing expeditor SHERIN DELACRUZ ([id number]) on 12/19/2023 9:38:42 AM Test Reason : Chest Pain Location : 302 : ED ED Overread By : SAEED HUDDLESTON MD Edited By : SHERIN DELACRUZ Referred By : , Acquired by : [id number], [facility] ED NOTEon 12-18-2023 ED NOTE HNO ID: [id number] Author: EDILMA NIELSON RN Service: ? Author [...] at home. Denies N/V/D. VSS in triage. [facility] ED Triage Noteon 12-18-2023 ED Triage Note HNO ID: [id number] Author: SAEED HUDDLESTON MD Service: Emergency Medicine [...] DIFF ECG COMPLETE SIGNATURE: Saeed Huddleston MD [facility] HIGH SENSITIVITY TROPONIN T (INITIAL)on 12-18-2023 Troponin T.cardiac High sensitivity method [Mass/Vol] 16 ng/L High <12 [facility] Comment on above: Order Comment: Speci men Type: BLOOD SPECIMEN [facility] Address: [address], [place] [address] Performed By: #### L [id number] #### [facility] CLIA [id number] [place] [address] [place] XR CHEST 2V [...] Similar chronic lung changes without acute abnormality. Putter In: PSCB Transcribe Date/Time: Dec 18 2023 9:08P Dictated by : JOSE CHAHAL MD This examination was interpreted and the report reviewed and electronically signed by: JOSE CHAHAL MD on Dec 18 2023 9:14PM EST [id number] Normal [facility] GLUCOSE, BLOOD (POC)on 12-10 Glucose [Mass/Vol] 87 mg/dL 74 - 99 mg/dL [facility] Comment on above: Location:[facility], [address] [place] [address] , [place], [place], [facility] The Accu-Chek Inform II glucose meter [...] blood gas instrument) in the above situations. [facility] No Panel Informationon 11-27 Interpretation and review of laboratory results Abnormal [facility] PNEUMOCOCCAL AB (23 SEROTYPE )on 11-28-2023 S. pneumoniae Luxembourger type 1 IgG IA (S) [Mass/Vol] <0.1 Low 1.3 - PINF ug/mL [facility] S. pneumoniae Luxembourger type 10A IgG IA (S) [Mass/Vol] 1.4 ug/mL 1.3 - PINF ug/mL [facility] S. pneumoniae Luxembourger type 11A IgG IA (S) [Mass/Vol] <0.1 Low 1.3 - PINF ug/mL [facility] S. pneumoniae Luxembourger type 12F IgG IA (S) [Mass/Vol] 0.2 ug/mL Low 1.3 - PINF ug/mL [facility] S. pneumoniae Luxembourger type 14 IgG IA (S) [Mass/Vol] 0.2 ug/mL Low 1.3 - PINF ug/mL [facility] S. pneumoniae Luxembourger type 15B IgG IA (S) [Mass/Vol] 0.3 ug/mL Low 1.3 - PINF ug/mL [facility] S. pneumoniae Luxembourger type 17F IgG IA (S) [Mass/Vol] 0.1 ug/mL Low 1.3 - PINF ug/mL [facility] S. pneumoniae Luxembourger type 18C IgG IA (S) [Mass/Vol] 0.4 ug/mL Low 1.3 - PINF ug/mL [facility] S. pneumoniae Luxembourger type 19A IgG IA (S) [Mass/Vol] 1.0 ug/mL Low 1.3 - PINF ug/mL [facility] S. pneumoniae Luxembourger type 19F IgG IA (S) [Mass/Vol] 0.9 ug/mL Low 1.3 - PINF ug/mL [facility] S. pneumoniae Luxembourger type 2 IgG IA (S) [Mass/Vol] 1.4 ug/mL 1.3 - PINF ug/mL [facility] S. pneumoniae Luxembourger type 20A IgG IA (S) [Mass/Vol] 10.5 ug/mL 1.3 - PINF ug/mL [facility] S. pneumoniae Luxembourger type 22F IgG IA (S) [Mass/Vol] 1.2 ug/mL Low 1.3 - PINF ug/mL [facility] S. pneumoniae Luxembourger type 23F IgG IA (S) [Mass/Vol] 0.1 ug/mL Low 1.3 - PINF ug/mL [facility] S. pneumoniae Luxembourger type 3 IgG IA (S) [Mass/Vol] 0.3 ug/mL Low 1.3 - PINF ug/mL [facility] S. pneumoniae Luxembourger type 33F IgG IA (S) [Mass/Vol] 2.7 ug/mL 1.3 - PINF ug/mL [facility] Comment on above: *This test was devwally [employer] and its performance characteristics determined by [employer]. It has not been cleared or approved by the U.S. Food and Drug Administration. FLAG Interpretation: A = Abnormal, H = High, L = Low S. pneumoniae Luxembourger type 4 IgG IA (S) [Mass/Vol] 0.1 ug/mL Low 1.3 - PINF ug/mL [facility] S. pneumoniae Luxembourger type 5 IgG IA (S) [Mass/Vol] 0.1 ug/mL Low 1.3 - PINF ug/mL [facility] S. pneumoniae Luxembourger type 6B IgG IA (S) [Mass/Vol] <0.1 Low 1.3 - PINF ug/mL [facility] S. pneumoniae Luxembourger type 7F IgG IA (S) [Mass/Vol] 0.5 ug/mL Low 1.3 - PINF ug/mL [facility] S. pneumoniae Luxembourger type 8 IgG IA (S) [Mass/Vol] 0.7 ug/mL Low 1.3 - PINF ug/mL [facility] S. pneumoniae Luxembourger type 9N IgG IA (S) [Mass/Vol] 0.2 ug/mL Low 1.3 - PINF ug/mL [facility] S. pneumoniae Luxembourger type 9V IgG IA (S) [Mass/Vol] <0.1 Low 1.3 - PINF ug/mL [facility] Performed at: - [employer] [id number], [facility], [place], [place] [id number] Program Management Manager: MANUELITO Wong PhDBC, Phone: [phone] [facility] T-helper cells (CD4) counton 11-28-2023 Basophils (Bld) [#/Vol] 0.0 10*3/uL [facility] Basophils/100 WBC (Bld) 0 % Not Estab. [facility] CD3+CD4+ (T4 helper) cells (Bld) [#/Vol] 301 /uL Low 359 - 1519 /uL [facility] CD3+CD4+ (T4 helper) cells/100 cells (Bld) 18.8 % Low 30.8 - 58.5 % [facility] Eosinophils (Bld) [#/Vol] 0.1 10*3/uL [facility] Eosinophils/100 WBC (Bld) 1 % Not Estab. [facility] Erythrocyte distribution width (RBC) [Ratio] 13.8 % 11.7 - 15.4 % [facility] Hematocrit (Bld) [Volume fraction] 46.2 % 34.0 - 46.6 % [facility] Hemoglobin (Bld) [Mass/Vol] 14.3 g/dL 11.1 - [...] [#/Vol] 9.2 10*3/uL [facility] Performed at: 01 - [address] [id number] Program Management Manager: Ranjan Andre PhD, Phone: [phone] [facility] XR Chest PA and Lateralon IMPRESSION: 1. No interval change since 05/31/23. 2. Bilateral perihilar consolidative opacities, left greater than right, most likely related to post radiation change, stable. Putter In: DEDE Transcribe Date/Time: Nov 21 2023 11:58A Dictated by : YOGESH DAVIS MD This examination was interpreted and the report reviewed and electronically signed by: YOGESH DAVIS MD on Nov 21 2023 12:06PM [facility] DIVISION OF RADIOLOGY * * [...] soft tissues: Unremarkable. DIVISION OF RADIOLOGY Provider, [facility] - 11/21/2023 * * *Final Report* [...] likely related to post radiation change, stable. Putter In: PSCB Transcribe Date/Time: Nov 21 2023 11:58A Dictated by : YOGESH DAVIS MD This examination was interpreted and the report reviewed and electronically signed by: YOGESH DAVIS MD on Nov 21 2023 12:06PM [facility] Radiology Study observation (narrative) [facility] XR Chest PA and LateralOrder ed By: Ccf Provider on 11-21-2023 [facility] CBC W Auto Differential pane l (Bld)on 11-11-2023 Basophils (Bld) [#/Vol] 0.04 10*3/uL [facility] Differential cell count method Nom (Bld) Auto [facility] Eosinophils (Bld) [#/Vol] 0.26 10*3/uL [facility] Immature granulocytes (Bld) [#/Vol] 0.04 10*3/uL [facility] Immature granulocytes/100 WBC (Bld) 0.5 % [facility] Lymphocytes (Bld) [#/Vol] 2.39 10*3/uL [facility] Monocytes (Bld) [#/Vol] 0.79 10*3/uL [facility] Neutrophils (Bld) [#/Vol] 4.64 10*3/uL [facility] Nucleated RBC (Bld) [#/Vol] [facility] Nucleated RBC/100 WBC (Bld) [Ratio] 0.0 % /100 WBC [facility] Platelet mean volume (Bld) [Entitic vol] 9.0 fL 9.0 - 12.7 fL [facility] Platelets (Bld) [#/Vol] 271 10*3/uL [facility] WBC (Bld) [#/Vol] 8.16 10*3/uL [facility] CBC W AUTO DIFF BLDon [facility] BASOPHILS # BLD AUTO 0.04 [facility] DIFFERENTIAL METHOD BLD Auto [facility] EOSINOPHIL # BLD AUTO 0.26 [facility] LYMPHOCYTES # BLD AUTO 2.39 [facility] MONOCYTES # BLD AUTO 0.79 [facility] NEUTROPHILS # BLD AUTO 4.64 [facility] NRBC # BLD AUTO <0.01 [facility] NRBC/100 WBC BLD-RTO 0.0 /100 WBC [facility] PLATELET # BLD AUTO 271 [facility] PMV BLD AUTO 9.0 fL 9.0 - 12.7 fL [facility] WBC # BLD AUTO 8.16 [facility] IMM GRANULOCYTES # BLD AUTO 0.04 [facility] IMM GRANULOCYTES/LEUK NFR BLD AUTO 0.5 % [facility] Specimen Type: BLOOD SPECIMEN Ordering [facility] Address: [address] [place] [address] Original Ordering Provider: ELLYN LOPEZ [facility] Comprehensive metabolic 2000 panelOrdered By: Saran Johnson on 11-11-2023 Albumin [Mass/Vol] 4.3 g/dL 3.9 - 4.9 g/dL [facility] ALP [Catalytic activity/Vol] 74 U/L 34 - 123 U/L [facility] ALT [Catalytic activity/Vol] 38 U/L 7 - 38 U/L [facility] Anion gap [Moles/Vol] 10 mmol/L 8 - 15 mmol/L [facility] AST [Catalytic activity/Vol] 34 U/L 13 - 35 U/L [facility] Bilirubin [Mass/Vol] 0.2 mg/dL 0.2 - 1.3 mg/dL [facility] Calcium [Mass/Vol] 9.5 mg/dL 8.5 - 10. 2 mg/dL [facility] Chloride [Moles/Vol] 104 mmol/L 98 - 107 mmol/L [facility] CO2 [Moles/Vol] 29 mmol/L 22 - 30 mmol/L [facility] Creatinine [Mass/Vol] 0.74 mg/dL 0.58 - 0.96 mg/dL [facility] GFR/1.73 sq M.predicted among non-blacks MDRD (S/P/Bld) [Vol rate/Area] 104 mL/min/{1.73_m2} - PINF [facility] Comment on above: Estimated Glomerular Filtration [...] [Mass/Vol] 89 mg/dL 74 - 99 mg/dL [facility] Comment on above: The [place] Diabete s Association (ADA) provides guidance for [...] Standards of Medical Care in Diabetes 2016, [place] Diabetes Association. Diabetes Care. 2016.39(Suppl 1). Interpretation and review of laboratory results Normal [facility] Potassium [Moles/Vol] 4.8 mmol/L 3.7 - 5.1 mmol/L [facility] Protein [Mass/Vol] 6.7 g/dL 6.3 - 8.0 g/dL [facility] Sodium [Moles/Vol] 143 mmol/L 136 - 144 mmol/L [facility] Urea nitrogen [Mass/Vol] 15 mg/dL 7 - 21 mg/dL [facility] IMMUNOGLOBULIN Lorenzo IgG [Mass/Vol] 878 mg/dL 700 - 1600 mg/dL [facility] IgG [Mass/Vol]on 11-11-2023 Interpretation and review of laboratory results Normal [facility] Laboratory - Hematology and Cell countson 11-11-2023 Basophils/100 WBC (Bld) 0.5 % [facility] Eosinophils/100 WBC (Bld) 3.2 % [facility] Erythrocyte distribution width (RBC) [Ratio] 13.7 % 11.5 - 15.0 % [facility] Hematocrit (Bld) [Volume fraction] 42.1 % 36.0 - 46.0 % [facility] Hemoglobin (Bld) [Mass/Vol] 14.1 g/dL 11.5 - 15.5 g/dL [facility] Lymphocytes/100 WBC (Bld) 29.3 % [facility] MCH (RBC) [Entitic mass] 31.4 pg 26.0 - 34.0 pg [facility] MCHC (RBC) [Mass/Vol] 33.5 g/dL 30.5 - 36.0 g/dL [facility] MCV (RBC) [Entitic vol] 93.8 fL 80.0 - 100.0 fL [facility] Monocytes/100 WBC (Bld) 9.7 % [facility] Neutrophils/100 WBC (Bld) 56.8 % [facility] RBC (Bld) [#/Vol] 4.49 10*6/uL 3.90 - 5.2 0 m/uL [facility] No Panel Informationon 11-10 [facility] OXIMETRY WITH AMBULATIONon 0 10-15-2023 Anh [...] [employer] Forehead 30 None NAME: Anh Weber, JULIANO PATIENT NAME: Celso Weller DATE: October 15, 2023 TIME: 10:45 AM Comment: [facility] No Panel Informationon 10-08 Radiology Study observation (narrative) [facility] XR Foot - bilateral AP and L ateral and obliqueon 10-09-2023 IMPRESSION: 1. No erosive arthropathy 2. Bilateral calcaneal enthesophytes Putter In: DEDE Transcribe Date/Time: Oct 09 2023 2:40P Dictated by : NICO HILLIARD MD This examination was interpreted and the report reviewed and electronically signed by: NICO HILLIARD MD on Oct 09 2023 2:42PM [facility] DIVISION OF RADIOLOGY * * [...] Small calcaneal enthesophytes. DIVISION OF RADIOLOGY [facility] 10/09/2023 * * *Final Report* * [...] No erosive arthropathy 2. Bilateral calcaneal enthesophytes Putter In: PSCB Transcribe Date/Time: Oct 09 2023 2:40P Dictated by : NICO HILLIARD MD This examination was interpreted and the report reviewed and electronically signed by: NICO HILLIARD MD on Oct 09 2023 2:42PM EST [facility] XR Hand - bilateral PA and L ateral and Obliqueon 10-09-2023 IMPRESSION: 1. Minimal osteoarthritis Putter In: PSCB Transcribe Date/Time: Oct 09 2023 2:39P Dictated by : NICO HILLIARD MD This examination was interpreted and the report reviewed and electronically signed by: NICO HILLIARD MD on Oct 09 2023 2:40PM EST DIVISION OF RADIOLOGY * * *Final Report* [...] tissues are unremarkable. DIVISION OF RADIOLOGY Provider, [facility] - 10/09/2023 * * *Final Report* * [...] are unremarkable. IMPRESSION IMPRESSION: 1. Minimal osteoarthritis Putter In: PSCB Transcribe Date/Time: Oct 09 2023 2:39P Dictated by : NICO HILLIARD MD This examination was interpreted and the report reviewed and electronically signed by: NICO HILLIARD MD on Oct 09 2023 2:40PM EST [facility] XR Knee - bilateral 4 Viewso n 10-09-2023 IMPRESSION: 1. Mild patellofemoral osteoarthritis Putter In: DEDE Transcribe Date/Time: Oct 09 2023 2:42P Dictated by : NICO HILLIARD MD This examination was interpreted and the report reviewed and electronically signed by: NICO HILLIARD MD on Oct 09 2023 2:43PM EST DIVISION OF RADIOLOGY * * *Final Report* * * DATE OF EXAM: Oct 09 2023 12:14PM LNX [id number] - XR KNEE 4V AP/PA/LAT/MERCH MJAO / PROCEDURE REASON: Polyarthralgia * * * * Physician Interpretation * * * * Bilateral knee radiographs HISTORY: Polyarthralgia TECHNIQUE: 5 views of both knees COMPARISON: 06/25/2013 FINDINGS: Knee joint spaces are preserved. Mild patellar osteophytes bilaterally. No fracture, erosions or avascular necrosis. Bone island in the left proximal tibia medially. No joint effusions. DIVISION OF RADIOLOGY Provider, [facility] - 10/09/2023 * * *Final Report* * [...] effusions. IMPRESSION IMPRESSION: 1. Mild patellofemoral osteoarthritis Putter In: DEDE Transcribe Date/Time: Oct 09 2023 2:42P Dictated by : NICO HILLIARD MD This examination was interpreted and the report reviewed and electronically signed by: NICO HILLIARD MD on Oct 09 2023 2:43PM EST [facility] XR Sacroiliac Joint Viewson 10-09-2023 IMPRESSION: 1. Mild degenerative changes at sacroiliac joints. No active sacroiliitis evident Putter In: [facility] Transcribe Date/Time: Oct 09 2023 2:37P Dictated by : NICO HILLIARD MD This examination was interpreted and the report reviewed and electronically signed by: NICO HILLIARD MD on Oct 09 2023 2:39PM [facility] DIVISION OF RADIOLOGY * * [...] head bone islands. DIVISION OF RADIOLOGY Provider, [facility] - 10/09/2023 * * *Final Report* * [...] at sacroiliac joints. No active sacroiliitis evident Putter In: [facility] Transcribe Date/Time: Oct 09 2023 2:37P Dictated by : NICO HILLIARD MD This examination was interpreted and the report reviewed and electronically signed by: NICO HILLIARD MD on Oct 09 2023 2:39PM EST [facility] XR Sacroiliac Joint ViewsOrd ered By: [facility] Provider on 10-09-2023 [facility] Additional Injections: R ext ensor compartment 1on 08-27-2023 Alex Hansen PA-C 08/27/2023 8:19 AM Additional Injections: R extensor compartment 1 for de Quervain's tenosynovitis Informed Consent Consent Obtained: Verbal Aquilla Protocol A moment to CARE was completed. [...] Plan of Care Visit completed when applicable [facility] CBC W Auto Differential pane l (Bld)on 08-05-2023 Basophils (Bld) [#/Vol] 0.03 10*3/uL [facility] Basophils/100 WBC (Bld) 0.2 % [facility] Differential cell count method Nom (Bld) Auto [facility] Eosinophils (Bld) [#/Vol] 0.09 10*3/uL [facility] Eosinophils/100 WBC (Bld) 0.6 % [facility] Erythrocyte distribution width (RBC) [Ratio] 12.8 % 11.5 - 15.0 % [facility] Hematocrit (Bld) [Volume fraction] 42.8 % 36.0 - 46.0 % [facility] Hemoglobin (Bld) [Mass/Vol] 14.1 g/dL 11.5 - 15.5 g/dL [facility] Immature granulocytes (Bld) [#/Vol] 0.20 10*3/uL [facility] Immature granulocytes/100 WBC (Bld) 1.3 % [facility] Interpretation and review of laboratory results Abnormal [facility] Lymphocytes (Bld) [#/Vol] 2.35 10*3/uL [facility] Lymphocytes/100 WBC (Bld) 15.0 % [facility] MCH (RBC) [Entitic mass] 31.1 pg 26.0 - 34.0 pg [facility] MCHC (RBC) [Mass/Vol] 32.9 g/dL 30.5 - 36.0 g/dL [facility] MCV (RBC) [Entitic vol] 94.5 fL 80.0 - 100.0 fL [facility] Monocytes (Bld) [#/Vol] 0.84 10*3/uL [facility] Monocytes/100 WBC (Bld) 5.4 % [facility] Neutrophils (Bld) [#/Vol] 12.14 10*3/uL [facility] Neutrophils/100 WBC (Bld) 77.5 % [facility] Nucleated RBC (Bld) [#/Vol] [facility] Nucleated RBC/100 WBC (Bld) [Ratio] 0.0 % /100 WBC [facility] Platelet mean volume (Bld) [Entitic vol] 9.2 fL 9.0 - 12.7 fL [facility] Platelets (Bld) [#/Vol] 332 10*3/uL [facility] RBC (Bld) [#/Vol] 4.53 10*6/uL 3.90 - 5.2 0 m/uL [facility] WBC (Bld) [#/Vol] 15.65 10*3/uL High [facility] Comprehensive metabolic 2000 panelOrdered By: Saran Johnson on 08-05-2023 Albumin [Mass/Vol] 3.9 g/dL 3.9 - 4.9 g/dL [facility] ALP [Catalytic activity/Vol] 69 U/L 34 - 123 U/L [facility] ALT [Catalytic activity/Vol] 58 U/L High 7 - 38 U/L [facility] Anion gap [Moles/Vol] 10 mmol/L 8 - 15 mmol/L [facility] AST [Catalytic activity/Vol] 25 U/L 13 - 35 U/L [facility] Bilirubin [Mass/Vol] 0.5 mg/dL 0.2 - 1.3 mg/dL [facility] Calcium [Mass/Vol] 9.7 mg/dL 8.5 - 10. 2 mg/dL [facility] Chloride [Moles/Vol] 103 mmol/L 98 - 107 mmol/L [facility] CO2 [Moles/Vol] 29 mmol/L 22 - 30 mmol/L [facility] Creatinine [Mass/Vol] 0.90 mg/dL 0.58 - 0.96 mg/dL [facility] GFR/1.73 sq M.predicted among non-blacks MDRD (S/P/Bld) [Vol rate/Area] 83 mL/min/{1.73_m2} - PINF [facility] Comment on above: Estimated Glomerular Filtration [...] 109 mg/dL High 74 - 99 mg/dL [facility] Comment on above: The [place] Diabete s Association (ADA) provides guidance for [...] Standards of Medical Care in Diabetes 2016, [place] Diabetes Association. Diabetes Care. 2016.39(Suppl 1). Interpretation and review of laboratory results Abnormal [facility] Potassium [Moles/Vol] 3.6 mmol/L Low 3.7 - 5.1 mmol/L [facility] Protein [Mass/Vol] 6.7 g/dL 6.3 - 8.0 g/dL [facility] Sodium [Moles/Vol] 142 mmol/L 136 - 144 mmol/L [facility] Urea nitrogen [Mass/Vol] 15 mg/dL 7 - 21 mg/dL [facility] ESR Westergren method (Bld) [Velocity]on 08-05-2023 ESR (Bld) [Velocity] 17 mm/h [facility] Interpretation and review of laboratory results Normal [facility] XR Esophagus Views Cydney Prado 07-19-2023 IMPRESSION: NORMAL ESOPHAGRAM. Putter In: DEDE Transcribe Date/Time: Jul 19 2023 2:16P Dictated by : ADDIS SUTTON MD This examination was interpreted and the report reviewed and electronically signed by: RUPERTO PLASCENCIA MD on Jul 19 2023 2:33PM [facility] DIVISION OF RADIOLOGY * * [...] of the procedure. DIVISION OF RADIOLOGY Provider, [facility] - 07/19/2023 * * *Final Report* * [...] of the procedure. IMPRESSION IMPRESSION: NORMAL ESOPHAGRAM. Putter In: DEDE Transcribe Date/Time: Jul 19 2023 2:16P Dictated by : ADDIS SUTTON MD This examination was interpreted and the report reviewed and electronically signed by: RUPERTO PLASCENCIA MD on Jul 19 2023 2:33PM EST [facility] Radiology Study observation (narrative) [facility] XR Esophagus Views W lara george POOrdered By: Ccf Provider on 07-19-2023 [facility] CNTHERAPYon 07-10-2023 CNTHERAPY OT/PT/Speech Visit (SPMBAV) ----- CELSO WELLER ([id number]) 1980 F Date Time Provider Department 07/10/23 1:00 PM CYNTHIA GUAJARDOV Date Time Provider Department Center 07/10/2023 1:00 PM [id number], MELANIE SPMB[facility] [place] Rachael Reason for Visit: Speech Instrumental Swallow Eval [3660] Speech Discharge [8798] Primary Visit Diagnosis:Dysphagia, unspecified type [R13.10] Allergies As of Date: 07/10/2023 Noted Allergy Reaction CHLORHEXIDINE 03/11/2013 9 - Itching Comments: Severe skin irritation. Had used for central line care SULFA (SULFONAMIDE ANTIBIOTICS) 01/07/2012 2 - Rash Date Reviewed: 06/28/2023 Reviewed by: Nadir Rowan LPN - Fully Assessed Prescriptions as of 07/10/2023 - mvihbzmhoyb-wipkcmeqe-kqp anter (TRELEGY ELLIPTA) 200-62.5-25 mcg inhalation powder Inhale 1 Puff as instructed once daily. - fluticasone (FLONASE ALLERGY RELIEF) 50 mcg/actuation nasal spray Use 1 [place] in each nostril once daily. - oxyCODONE [...] - azelastine 0.1% nasal spray Use 1 [place] in each nostril two times a day. [...] C No.3 (B COMPLEX PLUS VITAMIN C) 82-35-10-5-300 mg cap Take 1 tablet by mouth [...] she will be off of it soon. ----- Normal [facility] RF videography Hypopharynx a nd Esophagus Views W liquid and paste contrast PO during swallowingon 07-10-2023 IMPRESSION: THE VIC PATHOLOGIST REPORT AND RECOMMENDATIONS ARE PRESENT IN THE NOTES COMPONENT OF EPIC Putter In: PSCB Transcribe Date/Time: Jul 10 2023 3:06P Dictated by : ERIC GREENFIELD MD This examination was interpreted and the report reviewed and electronically signed by: ERIC GREENFIELD MD on Jul 10 2023 3:06PM [facility] RADIOLOGY * * *Final Report* * [...] a swallowing evaluation by the speech pathologist. [facility] Provider, Richard Dorsey - 07/10/2023 * [...] ARE PRESENT IN THE NOTES COMPONENT OF AmberAds Putter In: PSCB Transcribe Date/Time: Jul 10 2023 3:06P Dictated by : ERIC GREENFIELD MD This examination was interpreted and the report reviewed and electronically signed by: ERIC GREENFIELD MD on Jul 10 2023 3:06PM EST [facility] Radiology Study observation (narrative) [facility] RF videography Hypopharynx a nd Esophagus Views W liquid and paste contrast PO during swallowingOrdered By: Ccf Provider on 07-10-2023 [facility] XR MOD BARIUM SWALLOW W SPEE [...] ARE PRESENT IN THE NOTES COMPONENT OF [employer] Putter In: PSCB Transcribe Date/Time: Jul 10 2023 3:06P Dictated by : ERIC GREENFIELD MD This examination was interpreted and the report reviewed and electronically signed by: ERIC GREENFIELD MD on Jul 10 2023 3:06PM EST [id number] Normal [facility] CBC W Auto Differential pane l (Bld)on 06-10-2023 Basophils (Bld) [#/Vol] 0.03 10*3/uL [facility] Basophils/100 WBC (Bld) 0.3 % [facility] Differential cell count method Nom (Bld) Auto [facility] Eosinophils (Bld) [#/Vol] 0.08 10*3/uL [facility] Eosinophils/100 WBC (Bld) 0.7 % [facility] Erythrocyte distribution width (RBC) [Ratio] 14.2 % 11.5 - 15.0 % [facility] Hematocrit (Bld) [Volume fraction] 44.1 % 36.0 - 46.0 % [facility] Hemoglobin (Bld) [Mass/Vol] 14.6 g/dL 11.5 - 15.5 g/dL [facility] Immature granulocytes (Bld) [#/Vol] 0.06 10*3/uL [facility] Immature granulocytes/100 WBC (Bld) 0.5 % [facility] Interpretation and review of laboratory results Abnormal [facility] Lymphocytes (Bld) [#/Vol] 2.11 10*3/uL [facility] Lymphocytes/100 WBC (Bld) 18.3 % [facility] MCH (RBC) [Entitic mass] 31.5 pg 26.0 - 34.0 pg [facility] MCHC (RBC) [Mass/Vol] 33.1 g/dL 30.5 - 36.0 g/dL [facility] MCV (RBC) [Entitic vol] 95.2 fL 80.0 - 100.0 fL [facility] Monocytes (Bld) [#/Vol] 0.67 10*3/uL [facility] Monocytes/100 WBC (Bld) 5.8 % [facility] Neutrophils (Bld) [#/Vol] 8.55 10*3/uL High [facility] Neutrophils/100 WBC (Bld) 74.4 % [facility] Nucleated RBC (Bld) [#/Vol] [facility] Nucleated RBC/100 WBC (Bld) [Ratio] 0.0 % /100 WBC [facility] Platelet mean volume (Bld) [Entitic vol] 8.8 fL Low 9.0 - 12.7 fL [facility] Platelets (Bld) [#/Vol] 312 10*3/uL [facility] RBC (Bld) [#/Vol] 4.63 10*6/uL 3.90 - 5.2 0 m/uL [facility] WBC (Bld) [#/Vol] 11.50 10*3/uL High [facility] Comprehensive metabolic 2000 panelOrdered By: Zaira Rivera on 06-10-2023 Albumin [Mass/Vol] 4.1 g/dL 3.9 - 4.9 g/dL [facility] ALP [Catalytic activity/Vol] 71 U/L 34 - 123 U/L [facility] ALT [Catalytic activity/Vol] 41 U/L High 7 - 38 U/L [facility] Anion gap [Moles/Vol] 14 mmol/L 9 - 18 mmol/L [facility] AST [Catalytic activity/Vol] 27 U/L 13 - 35 U/L [facility] Bilirubin [Mass/Vol] 0.5 mg/dL 0.2 - 1.3 mg/dL [facility] Calcium [Mass/Vol] 9.5 mg/dL 8.5 - 10. 2 mg/dL [facility] Chloride [Moles/Vol] 104 mmol/L 97 - 105 mmol/L [facility] CO2 [Moles/Vol] 24 mmol/L 22 - 30 mmol/L [facility] Creatinine [Mass/Vol] 0.74 mg/dL 0.58 - 0.96 mg/dL [facility] GFR/1.73 sq M.predicted among non-blacks MDRD (S/P/Bld) [Vol rate/Area] 105 mL/min/{1.73_m2} - PINF [facility] Comment on above: Estimated Glomerular Filtration [...] 137 mg/dL High 74 - 99 mg/dL [facility] Comment on above: The [place] Diabete s Association (ADA) provides guidance for [...] Standards of Medical Care in Diabetes 2016, [place] Diabetes Association. Diabetes Care. 2016.39(Suppl 1). Interpretation and review of laboratory results Abnormal [facility] Potassium [Moles/Vol] 3.9 mmol/L 3.7 - 5.1 mmol/L [facility] Protein [Mass/Vol] 6.6 g/dL 6.3 - 8.0 g/dL [facility] Sodium [Moles/Vol] 142 mmol/L 136 - 144 mmol/L [facility] Urea nitrogen [Mass/Vol] 19 mg/dL 7 - 21 mg/dL [facility] ESR Westergren method (Bld) [Velocity]on 06-10-2023 ESR (Bld) [Velocity] 5 mm/h [facility] Interpretation and review of laboratory results Normal [facility] IMMUNOGLOBULIN Lorenzo IgG [Mass/Vol] 836 mg/dL 700 - 1600 mg/dL [facility] IgG [Mass/Vol]on 06-10-2023 Interpretation and review of laboratory results Normal [facility] T4/FTI/T4Uon 06-10-2023 FTI 8.4 ug/dL 5.3 - 10.8 ug/dL [facility] Interpretation and review of laboratory results Normal [facility] T4 [Mass/Vol] 8.3 ug/dL 5.5 - 10.2 ug/dL [facility] T4 uptake [Mass/Vol] 0.99 0.91 - 1.19 [facility] THYROID STIMULATING HORMONEo n 06-10-2023 TSH Qn 0.445 m[IU]/L [facility] Comment on above: If the patient [...] E, et al. 2017 Guidelines of the [place] Thyroid Association for the Diagnosis and Management of Thyroid Disease during and the . Thyroid, 2017:27:3:315-389. TSH Qnon 06-10-2023 Interpretation and review of laboratory results Normal [facility] XR Chest PA and Lateralon [facility] PET+CT Guidance for localiza tion of [...] any questions regarding this interpretation, please call [phone]. If you are unable to reach us at the number above, please feel free to contact [facility] eRadiology at [phone]. DIVISION OF RADIOLOGY * * *Final Report* [...] * Radiopharmaceutical Dose: 12.1 mCi * Radiopharmaceutical: [id number]-Xsfwzobhjvrcrdlevi (FDG) COMPARISON: FDG PET/CT dated 01/28/2023. CORRELATION: None. RESULT: REFERENCES: SUV reference values: * Blood pool (descending aorta) activity: SUVmax 2.8 * Background liver activity: SUVmax 3.6; SUVmean 2.7 Hand Nailer (topogram) images: No additional findings. Notes and limitations: * Standardized uptake values indicate the highest activity concentration (SUVmax) at a given location but can be variable and are not absolute. * Physiologic/non-neoplasti c uptake is common in the brain, extraocular [...] No abnormal uptake. DIVISION OF RADIOLOGY Provider, [facility] - 05/21/2023 * * *Final Report* * [...] * Radiopharmaceutical Dose: 12.1 mCi * Radiopharmaceutical: F94-Yvhhuxlkbboiaiclxi (FDG) COMPARISON: FDG PET/CT dated 01/28/2023. CORRELATION: None. RESULT: REFERENCES: SUV reference values: * Blood pool (descending aorta) activity: SUVmax 2.8 * Background liver activity: SUVmax 3.6; SUVmean 2.7 Hand Nailer (topogram) images: No additional findings. Notes and limitations: * Standardized uptake values indicate the highest activity concentration (SUVmax) at a given location but can be variable and are not absolute. * Physiologic/non-neoplasti c uptake is common in the brain, extraocular [...] any questions regarding this interpretation, please call [phone]. If you are unable to reach us at the number above, please feel free to contact [facility] eRadiology at [phone]. [facility] PET+CT Guidance for localiza tion of tumor of Skull base to mid-thigh-- W 18F-FDG IVOrdered By: Ccf Provider on 05-21-2023 [facility] GLUCOSE, BLOOD (POC)on 05-19 Glucose [Mass/Vol] 89 mg/dL 74 - 99 mg/dL [facility] Comment on above: Location:[facility], [address] [place] [address] , [place], [place], [facility] The Accu-Chek Inform II glucose meter [...] blood gas instrument) in the above situations. [facility] PET+CT Guidance for localiza tion of tumor of Skull base to mid-thigh-- W 18F-FDG Amira 05-20-2023 Radiology Study observation (narrative) [facility] NITRIC OXIDE, EXHALEDon [facility] CORTISOL BLDon 01-29-2023 Cortisol [Mass/Vol] 1.9 ug/dL Low 4.8 - 19 .5 ug/dL [facility] Comment on above: Provided reference claudia pardo is from 6-10 AM sample collection time. Cortisol Reference Range: 6-10 AM = 4.8-19.5 ug/dL, 4-8 PM = 2.5-11.9 ug/dL Cortisol [Mass/Vol]on 2022 Interpretation and review of laboratory results Abnormal [facility] No Panel Informationon 01-29 Interpretation and review of laboratory results Normal [facility] PET+CT Guidance for localiza tion of [...] any questions regarding this interpretation, please call [phone]. If you are unable to reach us at the number above, please feel free [facility] [phone]. DIVISION OF RADIOLOGY * * *Final Report* [...] suggest metastases. - DIVISION OF RADIOLOGY Provider, [facility] - 01/29/2023 * * *Final Report* * * DATE OF EXAM: Jan 28 2023 3:05PM NRN [id number] - AR PET/CT SKULL-THIGH SUBQ [...] any questions regarding this interpretation, please call [phone]. If you are unable to reach us at the number above, please feel free to contact [facility] eRadiology at [phone]. [facility] PET+CT Guidance for localiza tion of tumor of Skull base to mid-thigh-- W 18F-FDG IVOrdered By: Ccf Provider on 01-29-2023 [facility] T4 FREE/FREE THYROXon 2022 Free T4 [Mass/Vol] 1.3 ng/dL 0.9 - 1.7 ng/dL [facility] TSH BLDon 01-29-2023 TSH Qn 0.980 m[IU]/L [facility] Comment on above: If the patient [...] E, et al. 2017 Guidelines of the [place] Thyroid Association for the Diagnosis and Management of Thyroid Disease during and the . Thyroid, 2017:27:3:315-389. Urinalysis - AUTOMATEDon Appearance (U) clear [employer] Other Bilirubin Ql (U) Negative [employer] Other Color (U) bright yellow [facility] Other Glucose Ql (U) Negative [employer] Other Hemoglobin Ql (U) Negative [employer] Other Ketones Ql (U) Negative [employer] Other Leukocyte esterase Test strip Ql (U) trace [facility] Other Nitrite Ql (U) Negative [employer] Other pH (U) 6.0 [pH] [facility] Other Protein Ql (U) Negative [employer] Other Specific gravity (U) [Rel density] 1.010 [facility] Other Urobilinogen (U) [Mass/Vol] 0.2 mg/dL [facility] Other Urinalysis - AUTOMATED [facility] Other Urine Cultureon 01-29-2023 Bacteria identified Cx Nom (U) Reason for Exam Dysuria Urine Reason for Exam: Dysuria : Urine ORGANISM: Escherichia coli (O:ESCCOL) [place] Count >100,000 Aerobic RICARDO Charge (NMIC56) SUSCEPTIBILITY ORGANISM: O:ESCCOL ANTIBIOTIC INTERPRETATION RICARDO Amikacin S [...] <4 Tigecycline S <2 Tobramycin S <2 Trimethoprim/Sulfamethoxa zole S <0.5 S = SUSCEPTIBLE I = [...] RESISTANT TO ALL B-LACTAM DRUGS. PERFORMED BY: [place] [address] PATHOLOGIST POWER CHECKER MARGARITA HAYWOOD M.D. Normal [facility] Comment on above: Performed By: #### C UU #### [address] CBC W Auto Differential pane l (Bld)on 01-28-2023 Basophils (Bld) [#/Vol] 0.04 [facility]*3/[facility]L [facility] Basophils/100 WBC (Bld) 0.5 % [facility] Differential cell count method Nom (Bld) Auto [facility] Eosinophils (Bld) [#/Vol] 0.13 10*3/uL [facility] Eosinophils/100 WBC (Bld) 1.5 % [facility] Erythrocyte distribution width (RBC) [Ratio] 13.3 % 11.5 - 15.0 % [facility] Hematocrit (Bld) [Volume fraction] 47.6 % High 36.0 - 46.0 % [facility] Hemoglobin (Bld) [Mass/Vol] 15.8 g/dL High 11.5 - 15.5 g/dL [facility] Immature granulocytes (Bld) [#/Vol] [facility] Immature granulocytes/100 WBC (Bld) 0.2 % [facility] Interpretation and review of laboratory results Abnormal [facility] Lymphocytes (Bld) [#/Vol] 2.60 10*3/uL [facility] Lymphocytes/100 WBC (Bld) 30.5 % [facility] MCH (RBC) [Entitic mass] 31.3 pg 26.0 - 34.0 pg [facility] MCHC (RBC) [Mass/Vol] 33.2 g/dL 30.5 - 36.0 g/dL [facility] MCV (RBC) [Entitic vol] 94.3 fL 80.0 - 100.0 fL [facility] Monocytes (Bld) [#/Vol] 0.62 10*3/uL [facility] Monocytes/100 WBC (Bld) 7.3 % [facility] Neutrophils (Bld) [#/Vol] 5.12 10*3/uL [facility] Neutrophils/100 WBC (Bld) 60.0 % [facility] Nucleated RBC (Bld) [#/Vol] [facility] Nucleated RBC/100 WBC (Bld) [Ratio] 0.0 % /100 WBC [facility] Platelet mean volume (Bld) [Entitic vol] 8.9 fL Low 9.0 - 12.7 fL [facility] Platelets (Bld) [#/Vol] 331 10*3/uL [facility] RBC (Bld) [#/Vol] 5.05 10*6/uL 3.90 - 5.2 0 m/uL [facility] WBC (Bld) [#/Vol] 8.53 10*3/uL [facility] Comprehensive metabolic 2000 panelOrdered By: Nova Degroot on 01-28-2023 Albumin [Mass/Vol] 4.7 g/dL 3.9 - 4.9 g/dL [facility] ALP [Catalytic activity/Vol] 85 U/L 34 - 123 U/L [facility] ALT [Catalytic activity/Vol] 48 U/L High 7 - 38 U/L [facility] Anion gap [Moles/Vol] 10 mmol/L 9 - 18 mmol/L [facility] AST [Catalytic activity/Vol] 37 U/L High 13 - 35 U/L [facility] Bilirubin [Mass/Vol] 0.4 mg/dL 0.2 - 1.3 mg/dL [facility] Calcium [Mass/Vol] 10.1 mg/dL 8.5 - 10. 2 mg/dL [facility] Chloride [Moles/Vol] 99 mmol/L 97 - 105 mmol/L [facility] CO2 [Moles/Vol] 30 mmol/L 22 - 30 mmol/L [facility] Creatinine [Mass/Vol] 0.70 mg/dL 0.58 - 0.96 mg/dL [facility] GFR/1.73 sq M.predicted among non-blacks MDRD (S/P/Bld) [Vol rate/Area] 112 mL/min/{1.73_m2} - PINF [facility] Comment on above: Estimated Glomerular Filtration [...] 102 mg/dL High 74 - 99 mg/dL [facility] Comment on above: The [place] Diabete s Association (ADA) provides guidance for [...] Standards of Medical Care in Diabetes 2016, [place] Diabetes Association. Diabetes Care. 2016.39(Suppl 1). Interpretation and review of laboratory results Abnormal [facility] Potassium [Moles/Vol] 4.4 mmol/L 3.7 - 5.1 mmol/L [facility] Protein [Mass/Vol] 7.7 g/dL 6.3 - 8.0 g/dL [facility] Sodium [Moles/Vol] 139 mmol/L 136 - 144 mmol/L [facility] Urea nitrogen [Mass/Vol] 15 mg/dL 7 - 21 mg/dL [facility] GLUCOSE, BLOOD (POC)on 01-28 Glucose [Mass/Vol] 89 mg/dL 74 - 99 mg/dL [facility] Comment on above: Location:[facility], [address] [place] [address] , [place], [place], [facility] The Accu-Chek Inform II glucose meter [...] blood gas instrument) in the above situations. [facility] PET+CT Guidance for localiza tion of tumor of Skull base to mid-thigh-- W 18F-FDG Amira 01-28-2023 Radiology Study observation (narrative) [facility] CORTISOL BLDon 01-02-2023 Cortisol [Mass/Vol] 1.6 ug/dL Low 4.8 - 19 .5 ug/dL [facility] ESR Westergren method (Bld) [Velocity]on 01-02-2023 ESR (Bld) [Velocity] 2 mm/h 0 - 20 mm/hr [facility] T4/FTI/T4Uon 01-02-2023 FTI 7.5 ug/dL 5.3 - 10.8 ug/dL [facility] T4 [Mass/Vol] 7.6 ug/dL 5.5 - 10.2 ug/dL [facility] T4 uptake [Mass/Vol] 1.01 0.91 - 1.19 [facility] TSH BLDon 01-02-2023 TSH Qn 1.820 m[IU]/L 0.270 - 4.200 mIU/L [facility] CBC W Auto Differential pane l (Bld)on 01-01-2023 Basophils (Bld) [#/Vol] <0.11 k/uL [facility] Basophils/100 WBC (Bld) 0.2 % [facility] Differential cell count method Nom (Bld) Auto [facility] Eosinophils (Bld) [#/Vol] 0.21 10*3/uL <0.46 k/uL [facility] Eosinophils/100 WBC (Bld) 2.6 % [facility] Erythrocyte distribution width (RBC) [Ratio] 13.8 % 11.5 - 15.0 % [facility] Hematocrit (Bld) [Volume fraction] 44.6 % 36.0 - 46.0 % [facility] Hemoglobin (Bld) [Mass/Vol] 14.6 g/dL 11.5 - 15.5 g/dL [facility] Immature granulocytes (Bld) [#/Vol] 0.08 10*3/uL <0.10 k/uL [facility] Immature granulocytes/100 WBC (Bld) 1.0 % [facility] Lymphocytes (Bld) [#/Vol] 2.56 10*3/uL 1.00 - 4.00 k/uL [facility] Lymphocytes/100 WBC (Bld) 32.0 % [facility] MCH (RBC) [Entitic mass] 31.1 pg 26.0 - 34.0 pg [facility] MCHC (RBC) [Mass/Vol] 32.7 g/dL 30.5 - 36.0 g/dL [facility] MCV (RBC) [Entitic vol] 94.9 fL 80.0 - 100.0 fL [facility] Monocytes (Bld) [#/Vol] 0.62 10*3/uL <0.87 k/uL [facility] Monocytes/100 WBC (Bld) 7.7 % [facility] Neutrophils (Bld) [#/Vol] 4.52 10*3/uL 1.45 - 7.50 k/uL [facility] Neutrophils/100 WBC (Bld) 56.5 % [facility] Nucleated RBC (Bld) [#/Vol] <0.01 k/uL [facility] Nucleated RBC/100 WBC (Bld) [Ratio] 0.0 /100 WBC [facility] Platelet mean volume (Bld) [Entitic vol] 9.0 fL 9.0 - 12.7 fL [facility] Platelets (Bld) [#/Vol] 320 10*3/uL 150 - 400 k/uL [facility] RBC (Bld) [#/Vol] 4.70 10*6/uL 3.90 - 5.2 0 m/uL [facility] WBC (Bld) [#/Vol] 8.01 10*3/uL 3.70 - 11. 00 k/uL [facility] Comprehensive metabolic 2000 panelon 01-01-2023 Albumin [Mass/Vol] 4.5 g/dL 3.9 - 4.9 g/dL [facility] ALP [Catalytic activity/Vol] 93 U/L 34 - 123 U/L [facility] ALT [Catalytic activity/Vol] 49 U/L High 7 - 38 U/L [facility] Anion gap [Moles/Vol] 9 mmol/L 9 - 18 mmol/L [facility] AST [Catalytic activity/Vol] 38 U/L High 13 - 35 U/L [facility] Bilirubin [Mass/Vol] 0.2 mg/dL 0.2 - 1.3 mg/dL [facility] Calcium [Mass/Vol] 9.6 mg/dL 8.5 - 10. 2 mg/dL [facility] Chloride [Moles/Vol] 102 mmol/L 97 - 105 mmol/L [facility] CO2 [Moles/Vol] 28 mmol/L 22 - 30 mmol/L [facility] Creatinine [Mass/Vol] 0.68 mg/dL 0.58 - 0.96 mg/dL [facility] Estimated Glomerular Filtration Rate 113 mL/min/1.73m >=60 mL/min/1.73m [facility] Glucose [Mass/Vol] 102 mg/dL High 74 - 99 mg/dL [facility] Potassium [Moles/Vol] 4.4 mmol/L 3.7 - 5.1 mmol/L [facility] Protein [Mass/Vol] 7.3 g/dL 6.3 - 8.0 g/dL [facility] Sodium [Moles/Vol] 139 mmol/L 136 - 144 mmol/L [facility] Urea nitrogen [Mass/Vol] 9 mg/dL 7 - 21 mg/dL [facility] LD LACTATE DEHYDROon LDH [Catalytic activity/Vol] 283 U/L High 135 - 214 U/L [facility] MAGNESIUM BLDon 01-01-2023 Magnesium [Mass/Vol] 2.5 mg/dL High 1.7 - 2.3 mg/dL [facility] CNPNon 10-18-2022 [facility] CELSO WELLER ([id number]) 1980 F Date Time Provider Department 10/18/22 [facility] During your visit today, we recorded the following information about you: Kylie Mosher RN 10/18/2022 3:19 PM Addendum Prior Authorization Documentation Prior authorization requested via Covermymeds for the following medication: Medication: Lyrica 100 mg capsules Approved and authorizes your coverage from 02/18/2022 - 02/17/2023, Insurance Company Name: [employer] Phone number: [phone] Patient ID number: [id number] Osorio [id number] Pharmacy Name: [facility] Telephone number: [phone] Kylie Mosher RN October 18, 2022 1:38 PM Allergies As of Date: 10/18/2022 Noted Allergy Reaction CHLORHEXIDINE 03/11/2013 9 - Itching Comments: Severe skin irritation. Had used for central line care SULFA (SULFONAMIDE ANTIBIOTICS) 01/07/2012 2 - Rash Date Reviewed: 10/18/2022 Reviewed by: Irene Han, LORY.FORM RAISER - Fully Assessed Reason for Visit: Insurance [...] C No.3 (B COMPLEX PLUS VITAMIN C) 88-49-12-5-300 mg cap Take 1 tablet by mouth [...] Insomnia [G47.00] (more content not included)... Normal [facility] GLUCOSE, BLOOD (POC)on 08-14 Glucose [Mass/Vol] 103 mg/dL Abnormal 74 - 99 mg/dL [facility] Comment on above: Location:[facility], [address] [place] [address] , [place], [place], [address] The Accu-Chek Inform II glucose meter has [...] Interpretation and review of laboratory results Abnormal [facility] PET+CT Guidance for localiza tion of [...] any questions regarding this interpretation, please call [phone]. If you are unable to reach us at the number above, please feel free to contact [facility] [phone]. DIVISION OF RADIOLOGY * * *Final Report* [...] Degenerative arthritic change. DIVISION OF RADIOLOGY Provider, [facility] - 08/14/2022 * * *Final Report* * [...] any questions regarding this interpretation, please call [phone]. If you are unable to reach us at the number above, please feel free to contact [facility] at [phone]. [facility] Rad[facility] Study observation (narrative) [facility] PET+CT Guidance for localiza tion of tumor of Skull base to mid-thigh-- W 18F-FDG IVOrdered By: Ccf Provider on 08-14-2022 [facility] CBC AUTO DIFFon 06-21-2022 BASO # 0.0 103/ul Normal 0.0-0.1 [facility] Comment on above: Performed By: #### C BC #### [facility] [address] [address] [address] Kristina Morales Basophils/100 WBC (Bld) 0.4 % Normal 0.2-2.0 [facility] Comment on above: Performed By: #### C BC #### [facility] [address] [address] [address] Kristina Morales EO # 0.2 103/ul Normal 0.0-0.7 [facility] Comment on above: Performed By: #### C BC #### [facility] [address] [address] [address] Kristina Morales Eosinophils/100 WBC (Bld) 2.9 % Normal 0.9-7.0 [facility] Comment on above: Performed By: #### C BC #### [facility] [address] [place] [address] Dr. Kristina Morales Erythrocyte distribution width (RBC) [Ratio] 13.7 % Normal 11.0-15.0 [facility] Comment on above: Performed By: #### C BC #### [facility] [address] [place] [address] Dr. Kristina Morales Hematocrit (Bld) [Volume fraction] 44.2 % Normal 36.0-48.0 [facility] Comment on above: Performed By: #### C BC #### [facility] [address] [place] [address] Dr. Kristina Morales Hemoglobin (Bld) [Mass/Vol] 14.9 g/dL Normal 12.0-16.0 [facility] Comment on above: Performed By: #### C BC #### [facility] [address] [place] [address] Dr. Kristina Morales IG # 0.02 10e3/ul Normal 0.00-0.03 [facility] Comment on above: Performed By: #### C BC #### [facility] [address] [place] [address] Dr. Kristina Morales IG % 0.3 % Normal 0.0-0.5 [facility] Comment on above: Performed By: #### C BC #### [facility] [address] [place] [address] Dr. Kristina Morales LYMPH # 2.0 103/ul Normal 1.2-3.8 [facility] Comment on above: Performed By: #### C BC #### [facility] [address] [place] [address] Dr. Kristina Morales Lymphocytes/100 WBC (Bld) 27.8 % Normal 20.5-60.0 [facility] Comment on above: Performed By: #### C BC #### [facility] [address] [place] [address] Dr. Kristina Morales MANUAL DIFF REQ NO Normal [facility] Comment on above: Performed By: #### C BC #### [facility] [address] [place] [address] Dr. Kristina Morales MCH (RBC) [Entitic mass] 32.0 pg Normal 26.7-34.0 [facility] Comment on above: Performed By: #### C BC #### [facility] [address] [place] [address] Dr. Kristina Morales MCHC (RBC) [Mass/Vol] 33.7 g/dL Normal 29.9-35.2 [facility] Comment on above: Performed By: #### C BC #### [facility] [address] [place] [address] Dr. Kristina Morales MCV (RBC) [Entitic vol] 94.8 fL Normal 81.0-99.0 [facility] Comment on above: Performed By: #### C BC #### [facility] [address] [place] [address] Dr. Kristina Morales MONO # 0.7 103/ul Normal 0.3-0.8 [facility] Comment on above: Performed By: #### C BC #### [facility] [address] [place] [address] Dr. Kristina Morales Monocytes/100 WBC (Bld) 9.5 % Normal 1.7-12.0 [facility] Comment on above: Performed By: #### C BC #### [facility] [address] [place] [address] Dr. Kristina Morales NEUT # 4.2 103/ul Normal 1.4-6.5 [facility] Comment on above: Performed By: #### C BC #### [facility] [address] [place] [address] Dr. Kristina Morales Neutrophils/100 WBC (Bld) 59.1 % Normal 43.0-75.0 [facility] Comment on above: Performed By: #### C BC #### [facility] [address] [place] [address] Dr. Kristina oMrales Platelet mean volume (Bld) [Entitic vol] 9.1 fL Critically low 9.5-13.5 [facility] Comment on above: Performed By: #### C BC #### [facility] [address] [address] [address] Kristina Morales PLT 302 103/ul Normal 150-450 [facility] Comment on above: Performed By: #### C BC #### [facility] [address] [place] [address] Dr. Kristina Morales RBC 4.66 106/ul Normal 4.20-5.40 [facility] Comment on above: Performed By: #### C BC #### [facility] [address] [place] [address] Dr. Kristina Morales WBC 7.2 103/ul Normal 4.0-11.0 [facility] Comment on above: Performed By: #### C BC #### [facility] [address] [place] [address] Dr. Kristina Morales CRPon 06-21-2022 CRP 2.2 mg/dL Critically high <=1.0 [facility] Comment on above: Performed By: #### C RP, BMP #### [facility] [address] [place] [address] HEAD WO CONon [...] CONG SAID Date: 2022-06-21 05:34 Normal [facility] PROF CHEM 8 (BAS METB)on Anion gap [Moles/Vol] 11.9 mmol/L Normal [facility] Comment on above: Performed By: #### C RP, BMP #### [facility] [address] [place] [address] Dr. Kristina Morales Calcium [Mass/Vol] 9.5 mg/dL Normal 8.5-10.1 [facility] Comment on above: Performed By: #### C RP, BMP #### [facility] [address] [place] [address] Dr. Kristina Morales Chloride [Moles/Vol] 106 mmol/L Normal 98-107 [facility] Comment on above: Performed By: #### C RP, BMP #### [facility] [address] [place] [address] Dr. Kristina Morales CO2 [Moles/Vol] 26.7 mmol/L Normal 21.0-32.0 [facility] Comment on above: Performed By: #### C RP, BMP #### [facility] [address] [place] [address] Dr. Kristina Morales Creatinine [Mass/Vol] 0.91 mg/dL Normal 0.55-1.02 [facility] Comment on above: Performed By: #### C RP, BMP #### [facility] [address] [place] [address] Dr. Kristina Morales EGFR-AF CYMRAES >60 Normal >=60 [facility] Comment on above: Performed By: #### C RP, BMP #### [facility] [address] [place] [address] Dr. Kristina Morales EGFR-NON AF CYMRAES >60 Normal >=60 [facility] Comment on above: Performed By: #### C RP, BMP #### [facility] [address] [place] [address] Dr. Kristina Morales Glucose [Mass/Vol] 118 mg/dL Critically high 74-106 [facility] Comment on above: Performed By: #### C RP, BMP #### [facility] [address] [place] [address] Dr. Kristina Morales Potassium [Moles/Vol] 3.6 mmol/L Normal 3.5-5.1 [facility] Comment on above: Performed By: #### C RP, BMP #### [facility] [address] [place] [address] Dr. Kristina Morales Sodium [Moles/Vol] 141 mmol/L Normal 136-145 [facility] Comment on above: Performed By: #### C RP, BMP #### [facility] [address] [place], [place] [address] Dr. Kristina Morales Urea nitrogen [Mass/Vol] 17.0 mg/dL Normal 7.0-18.0 [facility] Comment on above: Performed By: #### C RP, BMP #### [facility] [address] [place], [place] [address] Dr. Kristina Morales Urea nitrogen/Creatinine [Mass ratio] 18.7 mg/mg Normal [facility] Comment on above: Performed By: #### C RP, BMP #### [facility] [address] [place], [place] [address] CHEST WO IVCONon 06-01-19 [facility] GLUCOSE, BLOOD (POC)on 02-26 Glucose [Mass/Vol] 95 mg/dL 74 - 99 mg/dL [facility] Comment on above: Location:[facility], [address] [place] [address] , [place], [place], [address] The Accu-Chek Inform II glucose meter has [...] blood gas instrument) in the above situations. [facility] PET+CT Guidance for localiza tion of [...] any questions regarding this interpretation, please call [phone]. If you are unable to reach us at the number above, please feel free to contact [facility] at [phone]. DIVISION OF RADIOLOGY * * *Final Report* [...] chest 05/29/[address] abdomen/pelvis 03/02/2019 RESULT: Hand Nailer (topogram) images: No additional findings. - Mediastinum [...] destructive osseous lesions. DIVISION OF RADIOLOGY Provider, [facility] - 02/26/2022 * * *Final Report* * [...] chest 05/29/[address] abdomen/pelvis 03/02/2019 RESULT: Hand Nailer (topogram) images: No additional findings. - Mediastinum [...] MD This examination (more content not included)... [facility] Radiology Study observation (narrative) [facility] PET+CT Guidance for localiza tion of tumor of Skull base to mid-thigh-- W 18F-FDG IVOrdered By: Ccf Provider on 02-26-2022 [facility] CNOVon 01-25-2022 CNOV Office Visit (CNFVM) ----- CELSO WELLER Claudia ([id number]) 1980 F TRN Date Time Provider Department 01/25/22 2:30 PM [facility] During your visit today, we recorded the [...] treadmill. She will be meeting with a management trainer to better understand the equipment upcoming. Has had some nausea since starting doxy for acne. Responsive to Compazine. Modified ESAS ([place] Symptom Assessment Scale) Information Provided By: Patient [...] activity was identified. 01/25/2022 by Irene Han APRN.FORM RAISER Urine Screen Lab Results Component Value Date UAMPH Negative 02/24/2021 UBARB2 Negative 02/24/2021 UBENZ Negative 02/24/2021 UQBUPRE <20 02/24/2021 UQNORBUP <20 02/24/2021 UCOC2 Negative 02/24/2021 UQCANN <16 02/24/2021 UOPI Negative 02/24/2021 UOXYC Negative 02/24/2021 UPCP Negative 02/24/2021 UTHC Negative 02/24/2021 UETOH <11 0 (more content not included)... Normal [facility] PAIN PANEL, UR QUANTon 01-25 3-Yayhyakchg-7,5-Di methyl-3,3-Diphenyl pyrrolidine (EDDP) Confirm (U) [Mass/Vol] <6 Normal <6 [facility] Comment on above: Order Comment: Speci men Type: URINE SPECIMEN Ordering Facility: [facility] Address: [address] [place] [id number] Result Comment: EDDP is a metabolite of methadone. Performed By: #### L [id number] #### [facility] CLIA [id number] [address] [place] [address] [place] 6-Monoacetylmorphin e (6-BERNIE) (U) [Mass/Vol] <5 Normal <5 [facility] Comment on above: Order Comment: Speci men Type: URINE SPECIMEN Ordering Facility: [facility] Address: [address] [address] Result Comment: 6-MA M (6-monoacetylmorphine, also known as 6-acetylmorphine) is a unique metabolite of heroin. Presence of 6-BERNIE indicates use of heroin. 6-BERNIE is further metabolized to morphine and absence of 6-BERNIE does not rule out the use of heroin. Performed By: #### L [id number] #### [facility] [place] [id number] [address] [place] [address] [place] Amphetamine Confirm (U) [Mass/Vol] <5 Normal <5 [facility] Comment on above: Order Comment: Speci men Type: URINE SPECIMEN Ordering Facility: [facility] Address: [address] [place] [address] Performed By: #### L [id number] #### [facility] [place] [id number] [address] [place] [address] [place] Benzoylecgonine Confirm (U) [Mass/Vol] <24 Normal <24 [facility] Comment on above: Order Comment: Speci men Type: URINE SPECIMEN Ordering Facility: [facility] Address: [address] [address] Result Comment: Henry oylecgonine is a metabolite of cocaine. Performed By: #### L [id number] #### [facility] CLIA [id number] [address] [place] [address] [place] Buprenorphine (U) [Mass/Vol] <20 Normal <20 [facility] Comment on above: Order Comment: Speci men Type: URINE SPECIMEN Ordering Facility: [facility] Address: [address] [place], [place] [address] Performed By: #### L [id number] #### [facility] CLIA [id number] [address] Cannabinoids Confirm (U) [Mass/Vol] <16 Normal <16 [facility] Comment on above: Order Comment: Speci men Type: URINE SPECIMEN Ordering Facility: [facility] Address: [address] [address] Result Comment: Tetr ahydrocannabinol carboxylic acid (THCA) is a metabolite of ovhld-2-extatsbytaedxjvwkndd which is the main active component of marijuana. Performed By: #### L [id number] #### [facility] CLIA [id number] [address] [place] [address] [place] Codeine Confirm (U) [Mass/Vol] <11 Normal <11 [facility] Comment on above: Order Comment: Speci men Type: URINE SPECIMEN Ordering Facility: [facility] Address: [address] Performed By: #### L [id number] #### [facility] CLIA [id number] [address] [place] [address] [place] Dihydrocodeine Confirm (U) [Mass/Vol] <5 Normal <5 [facility] Comment on above: Order Comment: Speci men Type: URINE SPECIMEN Ordering Facility: [facility] Address: [address] Performed By: #### L [id number] #### [facility] CLIA [id number] [address] [place] [address] [place] fentaNYL Confirm (U) [Mass/Vol] <6 Normal <6 [facility] Comment on above: Order Comment: Speci men Type: URINE SPECIMEN Ordering Facility: [facility] Address: [address] Performed By: #### L [id number] #### [facility] CLIA [id number] [address] HYDROcodone Confirm (U) [Mass/Vol] <8 Normal <8 [facility] Comment on above: Order Comment: Speci men Type: URINE SPECIMEN Ordering Facility: [facility] Address: [address] [place] [address] Result Comment: Hydr ocodone is a metabolite of dihydrocodeine. Performed By: #### L [id number] #### [facility] CLIA [id number] [address] [place] [address] HYDROmorphone Confirm (U) [Mass/Vol] <5 Normal <5 [facility] Comment on above: Order Comment: Speci men Type: URINE SPECIMEN Ordering Facility: [facility] Address: [address] [place] [address] Result Comment: Hydr omorphone is a metabolite of hydrocodone. Performed By: #### L [id number] #### [facility] CLIA [id number] [address] [place] [address] [place] Methadone Confirm (U) [Mass/Vol] <16 Normal <16 [facility] Comment on above: Order Comment: Speci men Type: URINE SPECIMEN Ordering Facility: [facility] Address: [address] [place] [address] Performed By: #### L [id number] #### [facility] CLIA [id number] [address] [place] [address] [place] Methamphetamine Confirm (U) [Mass/Vol] <8 Normal <8 [facility] Comment on above: Order Comment: Speci men Type: URINE SPECIMEN Ordering Facility: [facility] Address: [address] [place] [address] Performed By: #### L [id number] #### [facility] CLIA [id number] [address] [place] [address] [place] Morphine Confirm (U) [Mass/Vol] <10 Normal <10 [facility] Comment on above: Order Comment: Speci men Type: URINE SPECIMEN Ordering Facility: [facility] Address: [address] Result Comment: Morp majo is a metabolite of codeine and heroin. Performed By: #### L [id number] #### [facility] CLIA [id number] [address] [place] [address] [place] Norbuprenorphine (U) [Mass/Vol] <20 Normal <20 [facility] Comment on above: Order Comment: Speci men Type: URINE SPECIMEN Ordering Facility: [facility] Address: [address] Result Comment: Norb uprenorphine is the primary active metabolite of buprenorphine. Performed By: #### L [id number] #### [facility] CLIA [id number] [address] [place] [address] [place] Norfentanyl Confirm (U) [Mass/Vol] <6 Normal <6 [facility] Comment on above: Order Comment: Speci men Type: URINE SPECIMEN Ordering Facility: [facility] Address: [address] Result Comment: Norf entanyl is a metabolite of fentanyl. Performed By: #### L [id number] #### [facility] CLIA [id number] [address] [place] [address] [place] Nortramadol (U) [Mass/Vol] <20 Normal <20 [facility] Comment on above: Order Comment: Speci men Type: URINE SPECIMEN Ordering Facility: [facility] Address: [address] Result Comment: Desm ethyltramadol is a metabolite of tramadol. Performed By: #### L [id number] #### [facility] CLIA [id number] [address] [place] [address] [place] NOTE,UR PAIN OCASIO Normal [facility] Comment on above: Order Comment: Speci men Type: URINE SPECIMEN Ordering Facility: [facility] Address: [address] [address] Result Comment: This test is for medical use only. This test was developed and its performance characteristics determined by [facility] [place] ([facility] It has not been cleared or approved by the FDA. [facility] is regulated under CLIA as qualified to perform high-complexity testing. This test is used for clinical purposes. It should not be regarded as investigational or for research. Performed By: #### L [id number] #### [facility] CLIA [id number] [facility] [address] [place] oxyCODONE Confirm (U) [Mass/Vol] 2574 ng/mL High <10 [facility] Comment on above: Order Comment: Speci men Type: URINE SPECIMEN Ordering Facility: [facility] Address: [address] [place] [address] Result Comment: Oxyc odone is not a recognized metabolite of other opiates and its presence indicates use of an oxycodone containing drug. Oxycodone is metabolized to oxymorphone. Performed By: #### L [id number] #### [facility] CLIA [id number] [address] [place] [address] [place] oxyMORphone Confirm (U) [Mass/Vol] 2296 ng/mL High <5 [facility] Comment on above: Order Comment: Speci men Type: URINE SPECIMEN Ordering Facility: [facility] Address: [address] [place] [address] Result Comment: Oxym orphone may arise from oxymorphone containing drugs or by metabolism of oxycodone. Performed By: #### L [id number] #### [facility] CLIA [id number] [address] [place] [address] [place] traMADol Confirm (U) [Mass/Vol] <25 Normal <25 [facility] Comment on above: Order Comment: Speci men Type: URINE SPECIMEN Ordering Facility: [facility] Address: [address] [place] [address] Performed By: #### L [id number] #### [facility] CLIA [id number] [address] [place] [address] [place] SPECIMEN VALIDITY, URINEon 1 03-28-2021 CHROMATE,URINE <10 Normal <50 [facility] Comment on above: Order Comment: Speci men Type: URINE SPECIMEN Ordering Facility: [facility] Address: [address] [place] [address] Performed By: #### L [id number] #### [facility] CLIA [id number] [address] [place] [address] [place] CREATININE,URINE 78.6 mg/dL Normal 20.0-300.0 [facility] Comment on above: Order Comment: Speci men Type: URINE SPECIMEN Ordering Facility: [facility] Address: [address] [place] [address] Performed By: #### L [id number] #### [facility] CLIA [id number] [address] [place] [address] [place] NITRITES,URINE <50 Normal <500 [facility] Comment on above: Order Comment: Speci men Type: URINE SPECIMEN Ordering Facility: [facility] Address: [address] [place] [address] Performed By: #### L [id number] #### [facility] CLIA [id number] [address] [place] [address] [place] OXIDANTS,URINE 58 mg/L Normal <200 [facility] Comment on above: Order Comment: Speci men Type: URINE SPECIMEN Ordering Facility: [facility] Address: [address] [place], [place] [address] Performed By: #### L [id number] #### [facility] CLIA [id number] [address] [place] [address] [place] pH (U) 5.7 [pH] Normal 4.5-8.0 [facility] Comment on above: Order Comment: Speci men Type: URINE SPECIMEN Ordering Facility: [facility] Address: [address] [address] Performed By: #### L [id number] #### [facility] CLIA [id number] [address] [place] [address] [place] SPEC GRAVITY,UR 1.010 Normal 1.003-1.035 [facility] Comment on above: Order Comment: Speci men Type: URINE SPECIMEN Ordering Facility: [facility] Address: [address] [address] Performed By: #### L [id number] #### [facility] CLIA [id number] [address] [place] [address] [place] SPECIMEN VALIDITY QUALITY Specimen quality results within acceptable limits Normal [facility] Comment on above: Order Comment: Speci men Type: URINE SPECIMEN Ordering Facility: [facility] Address: [address] [place] [address] Performed By: #### L [id number] #### [facility] CLIA [id number] [address] [place] CBC W Auto Differential pane l (Bld)on 11-13-2021 Abs Immature Gran 0.03 k/uL <0.10 k/uL [facility] Basophils (Bld) [#/Vol] 0.03 10*3/uL <0.11 k/uL [facility] Basophils/100 WBC (Bld) 0.4 % [facility] Differential cell count method Nom (Bld) Auto [facility] Eosinophils (Bld) [#/Vol] 0.34 10*3/uL <0.46 k/uL [facility] Eosinophils/100 WBC (Bld) 4.8 % [facility] Erythrocyte distribution width (RBC) [Ratio] 13.8 % 11.5 - 15.0 % [facility] Hematocrit (Bld) [Volume fraction] 44.4 % 36.0 - 46.0 % [facility] Hemoglobin (Bld) [Mass/Vol] 14.8 g/dL 11.5 - 15.5 g/dL [facility] Immature Gran % 0.4 % [facility] Lymphocytes (Bld) [#/Vol] 1.62 10*3/uL 1.00 - 4.00 k/uL [facility] Lymphocytes/100 WBC (Bld) 23.0 % [facility] MCH (RBC) [Entitic mass] 31.6 pg 26.0 - 34.0 pg [facility] MCHC (RBC) [Mass/Vol] 33.3 g/dL 30.5 - 36.0 g/dL [facility] MCV (RBC) [Entitic vol] 94.7 fL 80.0 - 100.0 fL [facility] Monocytes (Bld) [#/Vol] 0.51 10*3/uL <0.87 k/uL [facility] Monocytes/100 WBC (Bld) 7.3 % [facility] Neutrophils (Bld) [#/Vol] 4.50 10*3/uL 1.45 - 7.50 k/uL [facility] Neutrophils/100 WBC (Bld) 64.1 % [facility] Nucleated RBC (Bld) [#/Vol] <0.01 k/uL [facility] Nucleated RBC/100 WBC (Bld) [Ratio] 0.0 /100 WBC [facility] Platelet mean volume (Bld) [Entitic vol] 9.6 fL 9.0 - 12.7 fL [facility] Platelets (Bld) [#/Vol] 310 10*3/uL 150 - 400 k/uL [facility] RBC (Bld) [#/Vol] 4.69 10*6/uL 3.90 - 5.2 0 m/uL [facility] WBC (Bld) [#/Vol] 7.03 10*3/uL 3.70 - 11. 00 k/uL [facility] Comprehensive metabolic 2000 panelOrdered By: Saran Johnson on 11-13-2021 Albumin [Mass/Vol] 4.3 g/dL 3.9 - 4.9 g/dL [facility] ALP [Catalytic activity/Vol] 85 U/L 34 - 123 U/L [facility] ALT [Catalytic activity/Vol] 49 U/L High 7 - 38 U/L [facility] Anion gap [Moles/Vol] 9 mmol/L 9 - 18 mmol/L [facility] AST [Catalytic activity/Vol] 40 U/L High 13 - 35 U/L [facility] Bilirubin [Mass/Vol] 0.2 mg/dL 0.2 - 1.3 mg/dL [facility] Calcium [Mass/Vol] 9.5 mg/dL 8.5 - 10. 2 mg/dL [facility] Chloride [Moles/Vol] 104 mmol/L 97 - 105 mmol/L [facility] CO2 [Moles/Vol] 27 mmol/L 22 - 30 mmol/L [facility] Creatinine [Mass/Vol] 0.70 mg/dL 0.58 - 0.96 mg/dL [facility] GFR/1.73 sq M.predicted among non-blacks MDRD (S/P/Bld) [Vol rate/Area] 113 mL/min/{1.73_m2} - PINF [facility] Comment on above: Estimated Glomerular Filtration [...] 117 mg/dL High 74 - 99 mg/dL [facility] Comment on above: The [place] Diabete s Association (ADA) provides guidance for [...] Standards of Medical Care in Diabetes 2016, [place] Diabetes Association. Diabetes Care. 2016.39(Suppl 1). Interpretation and review of laboratory results Abnormal [facility] Potassium [Moles/Vol] 4.4 mmol/L 3.7 - 5.1 mmol/L [facility] Protein [Mass/Vol] 6.7 g/dL 6.3 - 8.0 g/dL [facility] Sodium [Moles/Vol] 140 mmol/L 136 - 144 mmol/L [facility] Urea nitrogen [Mass/Vol] 11 mg/dL 7 - 21 mg/dL [facility] Free T4 [Mass/Vol]on 022 Interpretation and review of laboratory results Normal [facility] GLUCOSE, BLOOD (POC)on 11-13 Glucose [Mass/Vol] 105 mg/dL Abnormal 74 - 99 mg/dL [facility] [place] Comment on above: Location:[facility], [address] [place] [address] , [place], [place], [address] The Accu-Chek Inform II glucose meter has [...] Interpretation and review of laboratory results Abnormal [facility] PET+CT Guidance for localiza tion of [...] any questions regarding this interpretation, please call [phone]. If you are unable to reach us at the number above, please feel free to [facility] at [phone]. DIVISION OF RADIOLOGY * * *Final Report* [...] Employed: Yes COMPARISON: 08/15/2021 CORRELATION: None. RESULT: Hand Nailer (topogram) images: No additional findings. - Mediastinum [...] presumed cutaneous inflammation. DIVISION OF RADIOLOGY Provider, [facility] - 11/13/2021 * * *Final Report* * [...] Employed: Yes COMPARISON: 08/15/2021 CORRELATION: None. RESULT: Hand Nailer (topogram) images: No additional findings. - Mediastinum [...] any questions regarding this interpretation, please call [phone]. If you are unable to reach us at the number above, please feel free to contact [facility] at [phone]. [facility] Radiology Study observation (narrative) [facility] PET+CT Guidance for localiza tion of tumor of Skull base to mid-thigh-- W 18F-FDG IVOrdered By: [facility] Provider on 11-13-2021 [facility] T4 FREE/FREE THYROXon 2021 Free T4 [Mass/Vol] 1.1 ng/dL 0.9 - 1.7 ng/dL [facility] TSH BLDon 11-13-2021 TSH Qn 1.920 m[IU]/L [facility] Comment on above: If the patient [...] Lopes, et al. 2017 Guidelines of the [place] Thyroid Association for the Diagnosis and Management of Thyroid Disease during and the . Thyroid, 2017:27:3:315-389. TSH Qnon 11-13-2021 Interpretation and review of laboratory results Normal [facility] CNOVon 10-26-2021 CNOV Office Visit (CNFVM) ----- CELSO WELLER ([id number]) 1980 F TRN Date Time Provider Department 10/26/21 3:00 PM IRENE HAN [facility] During your visit today, we recorded [...] care with [facility] visit 08/02. Referred to [facility] palliative due to proximity of home. Did [...] upcoming PET scan will show. Modified ESAS ([place] Symptom Assessment Scale) Information Provided By: Patient [...] Medical Onco (more content not included)... Normal [facility] TSH [facility] 08-16-2021 TSH Qn 1.230 m[IU]/L [facility] Comment on above: If the patient [...] Lopes, et al. 2017 Guidelines of the [place] Thyroid Association for the Diagnosis and Management of Thyroid Disease during and the . Thyroid, 2017:27:3:315-389. TSH Qnon 06-29-2022 Interpretation and review of laboratory results Normal [facility] CBC W Auto Differential pane l (Bld)on 08-15-2021 Basophils (Bld) [#/Vol] 0.03 10*3/uL [facility] Basophils/100 WBC (Bld) 0.3 % [facility] Differential cell count method Nom (Bld) Auto [facility] Eosinophils (Bld) [#/Vol] 0.31 10*3/uL [facility] Eosinophils/100 WBC (Bld) 3.2 % [facility] Erythrocyte distribution width (RBC) [Ratio] 14.1 % 11.5 - 15.0 % [facility] Hematocrit (Bld) [Volume fraction] 42.3 % 36.0 - 46.0 % [facility] Hemoglobin (Bld) [Mass/Vol] 13.9 g/dL 11.5 - 15.5 g/dL [facility] Immature granulocytes (Bld) [#/Vol] [facility] Immature granulocytes/100 WBC (Bld) 0.2 % [facility] Lymphocytes (Bld) [#/Vol] 1.80 10*3/uL [facility] Lymphocytes/100 WBC (Bld) 18.4 % [facility] MCH (RBC) [Entitic mass] 30.6 pg 26.0 - 34.0 pg [facility] MCHC (RBC) [Mass/Vol] 32.9 g/dL 30.5 - 36.0 g/dL [facility] MCV (RBC) [Entitic vol] 93.2 fL 80.0 - 100.0 fL [facility] Monocytes (Bld) [#/Vol] 0.56 10*3/uL [facility] Monocytes/100 WBC (Bld) 5.7 % [facility] Neutrophils (Bld) [#/Vol] 7.06 10*3/uL [facility] Neutrophils/100 WBC (Bld) 72.2 % [facility] Nucleated RBC (Bld) [#/Vol] [facility] Nucleated RBC/100 WBC (Bld) [Ratio] 0.0 % /100 WBC [facility] Platelet mean volume (Bld) [Entitic vol] 9.0 fL 9.0 - 12.7 fL [facility] Platelets (Bld) [#/Vol] 263 10*3/uL [facility] RBC (Bld) [#/Vol] 4.54 10*6/uL 3.90 - 5.2 0 m/uL [facility] WBC (Bld) [#/Vol] 9.78 10*3/uL [facility] This is an appended report. These results have been appended to a previously verified report. [facility] Comprehensive metabolic 2000 panelOrdered By: Saran Johnson on 08-15-2021 Albumin [Mass/Vol] 4.2 g/dL 3.9 - 4.9 g/dL [facility] ALP [Catalytic activity/Vol] 81 U/L 34 - 123 U/L [facility] ALT [Catalytic activity/Vol] 50 U/L High 7 - 38 U/L [facility] Anion gap [Moles/Vol] 7 mmol/L Low 9 - 18 mmol/L [facility] AST [Catalytic activity/Vol] 43 U/L High 13 - 35 U/L [facility] Bilirubin [Mass/Vol] 0.4 mg/dL 0.2 - 1.3 mg/dL [facility] Calcium [Mass/Vol] 9.2 mg/dL 8.5 - 10. 2 mg/dL [facility] Chloride [Moles/Vol] 107 mmol/L High 97 - 105 mmol/L [facility] CO2 [Moles/Vol] 28 mmol/L 22 - 30 mmol/L [facility] Creatinine [Mass/Vol] 0.56 mg/dL Low 0.58 - 0.96 mg/dL [facility] GFR/1.73 sq M.predicted among non-blacks MDRD (S/P/Bld) [Vol rate/Area] 119 mL/min/{1.73_m2} - PINF [facility] Comment on above: Estimated Glomerular Filtration [...] 104 mg/dL High 74 - 99 mg/dL [facility] Comment on above: The [place] Diabete s Association (ADA) provides guidance for [...] Standards of Medical Care in Diabetes 2016, [place] Diabetes Association. Diabetes Care. 2016.39(Suppl 1). Interpretation and review of laboratory results Abnormal [facility] Potassium [Moles/Vol] 4.4 mmol/L 3.7 - 5.1 mmol/L [facility] Protein [Mass/Vol] 6.7 g/dL 6.3 - 8.0 g/dL [facility] Sodium [Moles/Vol] 142 mmol/L 136 - 144 mmol/L [facility] Urea nitrogen [Mass/Vol] 8 mg/dL 7 - 21 mg/dL [facility] ESR Westergren method (Bld) [Velocity]on 08-15-2021 ESR (Bld) [Velocity] 5 mm/h [facility] Interpretation and review of laboratory results Normal [facility] PET+CT Guidance for localiza tion of [...] foci are favored to be secondary to infectious/inflammatory process, although neoplastic etiology needs to be [...] any questions regarding this interpretation, please call [phone]. If you are unable to reach us at the number above, please feel free to contact [facility] at [phone]. [email or web address] E_DIVISION OF RADIOLOGY * * *Final [...] of subcentimeter FDG avid cutaneous uptake noted. SYSTEMS ADMIN (TOPOGRAM) IMAGES: No additional findings. ====== [email or web address] E_DIVISION OF RADIOLOGY [facility] * * *Final Report* * * DATE OF EXAM: Aug 15 2021 1:FARSHAD NRN 0063 - NM PET/CT SKULL-THIGH SUBQ [...] of subcentimeter FDG avid cutaneous uptake noted. SYSTEMS ADMIN (TOPOGRAM) IMAGES: No additional findings. ====== IMPRESSION [...] foci are favored to be secondary to infectious/inflammatory process, although neoplastic etiology needs to be [...] JORDAN WOODARD MD (more content not included)... 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 Kristina Morales Result 1 Mixed skin doni Normal [facility] Comment on above: Performed By: #### C XWND #### [facility] [address] [address] [address] Kristina Morales Initial Visit (Otolaryngolog y)on [...] laryngeal structure (more content not included)... Normal [facility] Culture, Urineon 04-17-2021 Culture, Urine ORDER#: [id number] OR DERED BY: SHEILA LIN SOURCE: Urine Voided COLLECTED: 04/17/21 18:42 ANTIBIOTICS AT CECILY.: RECEIVED : 04/17/21 19:23 Culture, Urine FINAL 04/19/21 12:36 Cult,Urine: NO SIGNIFICANT GROWTH Performed at [employer] [address] [place] [id number] [phone] Normal [facility] Comment on above: Performed By: #### Rayshawn SILVA #### [facility] [address] [place] [address] Urinalysis, reflex to micros copicon 04-17-2021 Bilirubin Ql (U) Negative Normal Negative [facility] Comment on above: Performed By: #### U A #### [facility] [address] [place] [address] Clarity (U) Clear Normal Clear [facility] Comment on above: Performed By: #### U A #### [facility] [address] [place] [address] Color (U) Yellow Normal Straw/Massac [facility] Comment on above: Performed By: #### U A #### [facility] [address] [place] [address] Glucose Ql (U) Negative Normal Negative [facility] Comment on above: Performed By: #### U A #### [facility] [address] [place] [address] Hemoglobin Ql (U) Negative Normal Negative [facility] Comment on above: Performed By: #### U A #### [facility] [address] [place] [address] Ketones Ql (U) Negative Normal Negative [facility] Comment on above: Performed By: #### U A #### [facility] [address] [place] [address] Leukocyte esterase Test strip Ql (U) TRACE Abnormal Negative [facility] Comment on above: Performed By: #### U A #### [facility] [address] [place] [address] Nitrite Ql (U) Negative Normal Negative [facility] Comment on above: Performed By: #### U A #### [facility] [address] [place] [address] pH (U) 6.0 [pH] Normal 5.0-9.0 [facility] Comment on above: Performed By: #### U A #### [facility] [address] [place] [address] Protein Ql (U) Negative Normal Negative [facility] Comment on above: Performed By: #### U A #### [facility] [address] [place] [address] Specific gravity (U) [Rel density] 1.006 Normal 1.005-1.03 [facility] Comment on above: Performed By: #### U A #### [facility] [address] [place] [address] Urobilinogen Qn (U) 0.2 {Nuvia'U}/dL Normal < 2.0 [facility] Comment on above: Performed By: #### U A #### [facility] [address] [place] [address] Urine Microscopicon 04-17-19 22 Bacteria LM.HPF (Urine sed) [#/Area] Negative Normal Negative [facility] Comment on above: Performed By: #### U RICARDO #### [facility] [address] [place] [address] Urine Epithelial Cells Auto 0-2 Normal 0-5 [facility] Comment on above: Performed By: #### U RICARDO #### [facility] [address] [place] [address] Urine Hyaline Casts Auto 0-1 Normal 0-5 [facility] Comment on above: Performed By: #### U RICARDO #### [facility] [address] [place] [address] Urine RBC Auto 0-2 Normal 0-5 [facility] Comment on above: Performed By: #### U RICARDO #### [facility] [address] [place] [address] Urine WBC Auto 0-2 Normal 0-5 [facility] Comment on above: Performed By: #### U RICARDO #### [facility] [address] [place] [address] PET+CT Guidance for localiza tion of tumor [...] any questions regarding this interpretation, please call [phone]. If you are unable to reach us at the number above, please feel free to contact [facility] at [phone]. DIVISION OF RADIOLOGY * * *Final Report* [...] right lateral chest wall (max SUV 4.6). Hand Nailer (topogram) images:No additional findings. DIVISION OF RADIOLOGY [facility], [facility]/15/[facility]21 * * *Final Report* * [...] right lateral chest wall (max SUV 4.6). Hand Nailer (topogram) images:No additional findings. IMPRESSION IMPRESSION: 1. Neck: No suspicious hypermetabolic [...] any questions regarding this interpretation, please call [phone]. If you are unable to reach us at the number above, please feel free to contact [facility] at [phone]. 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 [facility] PET+CT Guidance for localiza tion of tumor of Skull base to mid-thigh-- W 18F-FDG Amira 02-14-2021 Radiology Study observation (narrative) [facility] COVID Quick Testingon [address] [facility] Other KNEE CMPLT, 4 OR MORE VIEWSo n 08-24-2019 KNEE CMPLT, 4 OR MORE VIEWS Patient Name: CELSO WELLER STUDY: KNEE; COMPLT, 4 OR MORE VIEWS; Left; 08/24/2019 3:23 pm INDICATION: Pain. ACCESSION NUMBER(S): [id number] ORDERING CLINICIAN: RENETTA GUERRERO FINDINGS: Left knee x-rays four views AP, lateral, tunnel and sunrise view: No acute fractures, no dislocation. No significant degenerative changes. Electronically signed by: RENETTA GUERRERO MD Normal [facility] Free T4on 03-02-2019 Free T4 [Mass/Vol] 1.2 ng/dL Normal 0.9-1.7 [facility] Comment on above: Performed By: #### F T4, TSH #### [facility] Routine Lab [address] [place], [place] [address] TSHon 03-02-2019 TSH Qn 5.290 uU/mL High 0.270-4.200 [facility] Comment on above: Performed By: #### F T4, TSH #### [facility] Routine Lab [address] [place], [place] [address] Vital Signs Date Time Vital Sign Value Performing Clinician Facility 09-14-2024 10:58-0400 Body height 182.9 cm Bee Vail MD Work Phone: [facility] 09-14-2024 10:58-0400 Diastolic blood pressure 60 mm[Hg] Bee Vail MD Work Phone: [facility] 09-14-2024 10:58-0400 Heart rate 75 /min Bee Vail MD Work Phone: [facility] 09-14-2024 10:58-0400 SaO2% (BldA) [Mass fraction] 96 % Bee Vail MD Work Phone: [facility] 09-14-2024 10:58-0400 Systolic blood pressure 90 mm[Hg] Bee Vail MD Work Phone: [facility] 08-03-2024 09:50-0400 Body temperature 97.7 [degF] Ruperto Ledezma MD Work Phone: [facility] 08-03-2024 09:50-0400 Diastolic blood pressure 71 mm[Hg] Ruperto Ledezma MD Work Phone: [facility] 08-03-2024 09:50-0400 Heart rate 89 /min Ruperto Ledezma MD Work Phone: [facility] 08-03-2024 09:50-0400 Respiratory rate 16 /min Ruperto Ledezma MD Work Phone: [facility] 08-03-2024 09:50-0400 SaO2% (BldA) [Mass fraction] 95 % Ruperto Ldeezma MD Work Phone: [facility] 08-03-2024 09:50-0400 Systolic blood pressure 105 mm[Hg] Ruperto Ledezma MD Work Phone: [facility] 07-30-2024 09:55-0400 Body temperature 97.2 [degF] Irene Han APRN.FORM RAISER Work Phone: [facility] 07-30-2024 09:55-0400 Diastolic blood pressure 69 mm[Hg] Irene Han APRN.FORM [employer]ER Work Phone: [facility] 07-30-2024 09:55-0400 Heart rate 77 /min Irene Han APRN.FORM [employer] Work Phone: [facility] 07-30-2024 09:55-0400 Respiratory rate 16 /min Irene Han 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FORM [employer] Work Phone: [facility] 07-30-2024 09:55-0400 SaO2% (BldA) [Mass fraction] 96 % Irene Han 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FORM [employer] Work Phone: [facility] 07-30-2024 09:55-0400 Systolic blood pressure 100 mm[Hg] Irene Han 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FORM [employer]ER Work Phone: [facility] 07-21-2024 13:42-0400 Body height 182.9 cm Bee Vail MD Work Phone: [facility] 07-21-2024 13:42-0400 Body mass index (BMI) [Ratio] 30.79 kg/m2 Bee Vail MD Work Phone: [facility] 07-21-2024 13:42-0400 Body weight 102.97 kg Bee Vail MD Work Phone: [facility] 07-21-2024 13:42-0400 Diastolic blood pressure 70 mm[Hg] Bee Vail MD Work Phone: [facility] 07-21-2024 13:42-0400 Heart rate 98 /min Bee Vail MD Work Phone: [facility] 07-21-2024 13:42-0400 SaO2% (BldA) [Mass fraction] 97 % Bee Vail MD Work Phone: [facility] 07-21-2024 13:42-0400 Systolic blood pressure 90 mm[Hg] Bee Vail MD Work Phone: [facility] 06-08-2024 08:06-0400 Body height 182.9 cm Sheila Lin [employer] Work Phone: [facility] 06-08-2024 08:06-0400 Diastolic blood pressure 64 mm[Hg] Sheila Lin [employer] Work Phone: [facility] 06-08-2024 08:06-0400 Heart rate 102 /min Sheila Lowecésar [employer]ER [employer] Work Phone: [facility] 06-08-2024 08:06-0400 SaO2% (BldA) [Mass fraction] 98 % Sheila Lin [employer] Work Phone: [facility] 06-08-2024 08:06-0400 Systolic blood pressure 112 mm[Hg] Sheila Lowecésar [employer] Work Phone: [facility] 05-04-2024 10:07-0400 Body temperature 97.81 [degF] Ruperto Ledezma MD Work Phone: [facility] 05-04-2024 10:07-0400 Diastolic blood pressure 74 mm[Hg] Ruperto Ledezma MD Work Phone: [facility] 05-04-2024 10:07-0400 Heart rate 97 /min Ruperto Ledezma MD Work Phone: [facility] 05-04-2024 10:07-0400 Respiratory rate 18 /min Ruperto Ledezma MD Work Phone: [facility] 05-04-2024 10:07-0400 SaO2% (BldA) [Mass fraction] 92 % Ruperto Ledezma MD Work Phone: [facility] 05-04-2024 10:07-0400 Systolic blood pressure 115 mm[Hg] Ruperto Ledezma MD Work Phone: [facility] 04-23-2024 14:00-0500 Body temperature 97.59 [degF] Irene Han APRN.FORM RAISER Work Phone: [facility] 04-23-2024 14:00-0500 Diastolic blood pressure 77 mm[Hg] Irene Han APRN.FORM [employer]ER Work Phone: [facility] 04-23-2024 14:00-0500 Heart rate 105 /min Irene Han APRN.FORM [employer]ER Work Phone: [facility] 04-23-2024 14:00-0500 Respiratory rate 16 /min Irene Han APRN.FORM [employer]ER Work Phone: [facility] 04-23-2024 14:00-0500 SaO2% (BldA) [Mass fraction] 93 % Irene Han 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FORM [employer]ER Work Phone: [facility] 04-23-2024 14:00-0500 Systolic blood pressure 114 mm[Hg] Irene Han 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FORM [employer]ER Work Phone: [facility] 03-11-2024 08:05-0500 Body height 182.9 cm Sheila Lin [employer] Work Phone: [facility] 03-11-2024 08:05-0500 Diastolic blood pressure 68 mm[Hg] Sheila Lin [employer] Work Phone: [facility] 03-11-2024 08:05-0500 Heart rate 90 /min Sheila Lin [employer] Work Phone: [facility] 03-11-2024 08:05-0500 SaO2% (BldA) [Mass fraction] 95 % Sheila Lin [employer] Work Phone: [facility] 03-11-2024 08:05-0500 Systolic blood pressure 92 mm[Hg] Sheila Lin [employer] Work Phone: [facility] 01-21-2024 13:27-0500 Diastolic blood pressure 66 mm[Hg] Pradhab Kirupaharan DO Work Phone: [facility] 01-21-2024 13:27-0500 Heart rate 99 /min Pradhab Kirupaharan DO Work Phone: [facility] 01-21-2024 13:27-0500 SaO2% (BldA) [Mass fraction] 96 % Pradhab Kirupaharan DO Work Phone: [facility] 01-21-2024 13:27-0500 Systolic blood pressure 101 mm[Hg] Pradhab Kirupaharan DO Work Phone: [facility] 01-15-2024 10:00-0500 Body height 180 cm Pulm 2 Work Phone: [facility] 01-15-2024 10:00-0500 Body mass index (BMI) [Ratio] 30.56 kg/m2 Pulm 2 Work Phone: [facility] 01-15-2024 10:00-0500 Body weight 99 kg Pulm 2 Work Phone: [facility] 01-06-2024 14:18-0500 Diastolic blood pressure 77 mm[Hg] Jani Carver MD Work Phone: [facility] 01-06-2024 14:18-0500 Systolic blood pressure 103 mm[Hg] Jani Carver MD Work Phone: [facility] 01-06-2024 14:15-0500 Heart rate 99 /min Jani Carver MD Work Phone: [facility] 01-06-2024 14:15-0500 SaO2% (BldA) [Mass fraction] 92 % Jani Carver MD Work Phone: [facility] Comment on above: 01-03-2024 14:03-0500 Body height 182.9 cm Korina Vega MD Work Phone: [facility] 01-03-2024 14:03-0500 Body mass index (BMI) [Ratio] 29.84 kg/m2 Korina Vega MD Work Phone: [facility] 01-03-2024 14:03-0500 Body weight 99.79 kg Korina Vega MD Work Phone: [facility] 01-03-2024 14:03-0500 Diastolic blood pressure 78 mm[Hg] Korina Vega MD Work Phone: [facility] 01-03-2024 14:03-0500 Heart rate 94 /min Korina Vega MD Work Phone: [facility] 01-03-2024 14:03-0500 SaO2% (BldA) [Mass fraction] 95 % Korina Vega MD Work Phone: [facility] 01-03-2024 14:03-0500 Systolic blood pressure 114 mm[Hg] Korina Vega MD Work Phone: [facility] 12-26-2023 08:30-0500 Body mass index (BMI) [Ratio] 29.84 kg/m2 Kodi Pantoja MD Work Phone: [facility] [facility] 12-26-2023 08:30-0500 Body weight 99.79 kg Kodi Pantoja MD Work Phone: [facility] 12-26-2023 08:30-0500 Heart rate 93 /min Kodi Pantoja MD Work Phone: [facility] 12-26-2023 08:30-0500 SaO2% (BldA) [Mass fraction] 97 % Kodi Pantoja MD Work Phone: [facility] 12-17-2023 08:34-0400 Diastolic blood pressure 86 mm[Hg] 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FORM [employer] Work Phone: [facility] 12-17-2023 08:34-0400 Heart rate 95 /min 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FORM [employer] Work Phone: [facility] 12-17-2023 08:34-0400 SaO2% (BldA) [Mass fraction] 96 % 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FORM [employer] Work Phone: [facility] Comment on above: 12-17-2023 08:34-0400 Systolic blood pressure 132 mm[Hg] 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FORM [employer] Work Phone: [facility] 12-04-2023 09:17-0400 Body mass index (BMI) [Ratio] 29.84 kg/m2 Gabrielle Zavala MD Work Phone: [facility] 12-04-2023 09:17-0400 Body weight 99.79 kg Gabrielle Zavala MD Work Phone: [facility] 11-28-2023 08:34-0400 Body height 182.9 cm Sheila Lin NP Work Phone: [facility] 11-28-2023 08:34-0400 Diastolic blood pressure 74 mm[Hg] Sheila Lin NP Work Phone: [facility] 11-28-2023 08:34-0400 Heart rate 99 /min Sheila Lin [employer] Work Phone: [facility] 11-28-2023 08:34-0400 SaO2% (BldA) [Mass fraction] 96 % Sheila Lin [employer] Work Phone: [facility] 11-28-2023 08:34-0400 Systolic blood pressure 110 mm[Hg] Sheila Lin [employer] Work Phone: [facility] 11-21-2023 08:32-0400 Body mass index (BMI) [Ratio] 32.06 kg/m2 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FORM [employer] Work Phone: [facility] 11-21-2023 08:32-0400 Body weight 103.87 kg 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FORM [employer] Work Phone: [facility] Comment on above: declined 11-21-2023 08:32-0400 Diastolic blood pressure 66 mm[Hg] 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FORM [employer] Work Phone: [facility] 11-21-2023 08:32-0400 Heart rate 92 /min 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FORM [employer] Work Phone: [facility] 11-21-2023 08:32-0400 SaO2% (BldA) [Mass fraction] 94 % 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FORM [employer] Work Phone: [facility] Comment on above: RA 11-21-2023 08:32-0400 Systolic blood pressure 119 mm[Hg] 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FORM [employer] Work Phone: [facility] 11-20-2023 09:06-0400 Body height 182.9 cm Gabrielle Zavala MD Work Phone: [facility] 11-20-2023 09:06-0400 Body mass index (BMI) [Ratio] 29.84 kg/m2 Gabrielle Zavala MD Work Phone: [facility] 11-20-2023 09:06-0400 Body weight 99.79 kg Gabrielle Zavala MD Work Phone: [facility] 11-11-2023 10:27-0400 Body height 180 cm Ellyn Lopez APRN.FORM [employer]ER Work Phone: [facility] 11-11-2023 10:27-0400 Body temperature 97.11 [degF] Ellyn Lopez APRN.FORM [employer]ER Work Phone: [facility] 11-11-2023 10:27-0400 Diastolic blood pressure 71 mm[Hg] Ellyn Lopez APRN.FORM [employer]ER Work Phone: [facility] 11-11-2023 10:27-0400 Heart rate 101 /min Ellyn Lopez APRN.FORM [employer] Work Phone: [facility] 11-11-2023 10:27-0400 Respiratory rate 16 /min Ellyn Lopez APRN.FORM [employer]ER Work Phone: [facility] 11-11-2023 10:27-0400 SaO2% (BldA) [Mass fraction] 96 % Ellyn Lopez APRN.FORM [employer]ER Work Phone: [facility] 11-11-2023 10:27-0400 Systolic blood pressure 102 mm[Hg] Ellyn Lopez APRN.FORM [employer]ER Work Phone: [facility] 11-06-2023 09:57-0400 Diastolic blood pressure 80 mm[Hg] Sheila Lin [employer] Work Phone: [facility] 11-06-2023 09:57-0400 Heart rate 92 /min Sheila Lin [employer] Work Phone: [facility] 11-06-2023 09:57-0400 SaO2% (BldA) [Mass fraction] 98 % Sheila Lin [employer] Work Phone: [facility] 11-06-2023 09:57-0400 Systolic blood pressure 114 mm[Hg] Sheila Lin [employer] Work Phone: [facility] 10-17-2023 09:59-0400 Body temperature 97 [degF] Irene Han 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FORM [employer]ER Work Phone: [facility] 10-17-2023 09:59-0400 Diastolic blood pressure 75 mm[Hg] Irene Han 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FORM [employer] Work Phone: [facility] 10-17-2023 09:59-0400 Heart rate 91 /min Irene Han 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FORM [employer]ER Work Phone: [facility] 10-17-2023 09:59-0400 Respiratory rate 16 /min Irene Han 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FORM [employer]ER Work Phone: [facility] 10-17-2023 09:59-0400 SaO2% (BldA) [Mass fraction] 96 % Irene Han 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FORM [employer]ER Work Phone: [facility] 10-17-2023 09:59-0400 Systolic blood pressure 108 mm[Hg] Irene Han 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FORM [employer]ER Work Phone: [facility] 10-09-2023 10:58-0400 Diastolic blood pressure 83 mm[Hg] Simin Brandt MD Work Phone: [facility] 10-09-2023 10:58-0400 Heart rate 74 /min Simin Brandt MD Work Phone: [facility] 10-09-2023 10:58-0400 SaO2% (BldA) [Mass fraction] 99 % Simin Brandt MD Work Phone: [facility] 10-09-2023 10:58-0400 Systolic blood pressure 123 mm[Hg] Simin Brandt MD Work Phone: [facility] 09-18-2023 09:29-0400 Body temperature 96.91 [degF] Anil Franco PA-C Work Phone: [facility] 08-06-2023 06:59-0400 Body height 180 cm Carole Ruano APRN.FORM [employer]ER Work Phone: [facility] 08-06-2023 06:59-0400 Diastolic blood pressure 76 mm[Hg] Carole Ruano 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FORM [employer]ER Work Phone: [facility] 08-06-2023 06:59-0400 Heart rate 91 /min Carole Ruano 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FORM [employer]ER Work Phone: [facility] 08-06-2023 06:59-0400 SaO2% (BldA) [Mass fraction] 97 % Carole Ruano 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FORM [employer]ER Work Phone: [facility] Comment on above: RA 08-06-2023 06:59-0400 Systolic blood pressure 120 mm[Hg] Carole Ruano 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FORM [employer]ER Work Phone: [facility] 08-05-2023 10:04-0400 Body temperature 97.59 [degF] Ruperto Ledezma MD Work Phone: [facility] 08-05-2023 10:04-0400 Diastolic blood pressure 86 mm[Hg] Ruperto Ledezma MD Work Phone: [facility] 08-05-2023 10:04-0400 Heart rate 88 /min Ruperto Ledezma MD Work Phone: [facility] 08-05-2023 10:04-0400 Respiratory rate 16 /min Ruperto Ledezma MD Work Phone: [facility] 08-05-2023 10:04-0400 SaO2% (BldA) [Mass fraction] 95 % Ruperto Ledezma MD Work Phone: [facility] 08-05-2023 10:04-0400 Systolic blood pressure 123 mm[Hg] Ruperto Ledezma MD Work Phone: [facility] 2023 10:07-0400 Body temperature 97.9 [degF] Irene Han APRN.FORM [employer]ER Work Phone: [facility] 2023 10:07-0400 Diastolic blood pressure 64 mm[Hg] Irene Han APRN.FORM [employer]ER Work Phone: [facility] 2023 10:07-0400 Heart rate 93 /min Irene aHn APRN.FORM [employer]ER Work Phone: [facility] 2023 10:07-0400 SaO2% (BldA) [Mass fraction] 97 % Irene Han APRN.FORM [employer]ER Work Phone: [facility] 2023 10:07-0400 Systolic blood pressure 117 mm[Hg] Irene Han APRN.FORM [employer]ER Work Phone: [facility] 06-28-2023 11:07-0400 Diastolic blood pressure 84 mm[Hg] Jani Carver MD Work Phone: [facility] 06-28-2023 11:07-0400 Heart rate 93 /min Jani Carver MD Work Phone: [facility] 06-28-2023 11:07-0400 SaO2% (BldA) [Mass fraction] 100 % Jani Carver MD Work Phone: [facility] Comment on above: 06-28-2023 11:07-0400 Systolic blood pressure 118 mm[Hg] Jani Carver MD Work Phone: [facility] 06-13-2023 11:03-0400 Body height 180 cm Carole Ruano APRN.FORM [employer]ER Work Phone: [facility] 06-13-2023 11:03-0400 Body temperature 98.29 [degF] Carole Ruano APRN.FORM [employer]ER Work Phone: [facility] 06-13-2023 11:03-0400 Diastolic blood pressure 69 mm[Hg] Carole Ruano APRN.FORM [employer]ER Work Phone: [facility] 06-13-2023 11:03-0400 Heart rate 99 /min Carole Ruano APRN.FORM [employer]ER Work Phone: [facility] 06-13-2023 11:03-0400 SaO2% (BldA) [Mass fraction] 98 % Carole Ruano APRN.FORM [employer]ER Work Phone: [facility] Comment on above: 06-13-2023 11:03-0400 Systolic blood pressure 114 mm[Hg] Carole Ruano 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FORM [employer]ER Work Phone: [facility] 06-10-2023 10:08-0400 Body temperature 97 [degF] Ruperto Ledezma MD Work Phone: [facility] 06-10-2023 10:08-0400 Diastolic blood pressure 72 mm[Hg] Ruperto Ledezma MD Work Phone: [facility] 06-10-2023 10:08-0400 Heart rate 94 /min Ruperto Ledezma MD Work Phone: [facility] 06-10-2023 10:08-0400 Respiratory rate 18 /min Ruperto Ledezma MD Work Phone: [facility] 06-10-2023 10:08-0400 SaO2% (BldA) [Mass fraction] 98 % Ruperto Ledezma MD Work Phone: [facility] 06-10-2023 10:08-0400 Systolic blood pressure 111 mm[Hg] Ruperto Ledezma MD Work Phone: [facility] 05-31-2023 14:38-0400 Body temperature 96.91 [degF] Zoila Aguirre 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FORM [employer] Work Phone: [facility] 05-31-2023 14:38-0400 Diastolic blood pressure 83 mm[Hg] Zoila Aguirre 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FORM [employer]ER Work Phone: [facility] 05-31-2023 14:38-0400 Heart rate 109 /min Zoila Aguirre 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FORM [employer]ER Work Phone: [facility] 05-31-2023 14:38-0400 Respiratory rate 16 /min Zoila Aguirre 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FORM [employer]ER Work Phone: [facility] 05-31-2023 14:38-0400 SaO2% (BldA) [Mass fraction] 97 % Zoila Aguirre 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FORM [employer]ER Work Phone: [facility] 05-31-2023 14:38-0400 Systolic blood pressure 120 mm[Hg] Zoila Aguirre 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FORM [employer]ER Work Phone: [facility] 05-22-2023 07:50-0400 Body temperature 97.11 [degF] Anil Franco PA-C Work Phone: [facility] 04-19-2023 08:35-0500 Body height 182.9 cm Carole Pelfrey 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FORM [employer]ER Work Phone: [facility] 04-19-2023 08:35-0500 Body weight 103.9 kg Carole Pelfrey 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FORM [employer]ISER Work Phone: [facility] 04-19-2023 08:35-0500 Diastolic blood pressure 76 mm[Hg] Carole Pelfrey 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FORM [employer]ER Work Phone: [facility] 04-19-2023 08:35-0500 Heart rate 94 /min Carole Pelfrey 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FORM [employer]ISER Work Phone: [facility] 04-19-2023 08:35-0500 SaO2% (BldA) [Mass fraction] 98 % Carole Pelfrey 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FORM [employer]ISER Work Phone: [facility] 04-19-2023 08:35-0500 Systolic blood pressure 112 mm[Hg] Carole Pelfrey 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FORM [employer]ISER Work Phone: [facility] 04-16-2023 10:41-0500 Body height 180 cm Ruperto Ledezma MD Work Phone: [facility] 04-16-2023 10:41-0500 Body temperature 97.39 [degF] Ruperto Ledezma MD Work Phone: [facility] 04-16-2023 10:41-0500 Body weight 102 kg Ruperto Ledezma MD Work Phone: [facility] 04-16-2023 10:41-0500 Diastolic blood pressure 82 mm[Hg] Ruperto Ledezma MD Work Phone: [facility] 04-16-2023 10:41-0500 Heart rate 89 /min Ruperto Ledezma MD Work Phone: [facility] 04-16-2023 10:41-0500 Respiratory rate 18 /min Ruperto Ledezma MD Work Phone: [facility] 04-16-2023 10:41-0500 SaO2% (BldA) [Mass fraction] 95 % Ruperto Ledezma MD Work Phone: [facility] 04-16-2023 10:41-0500 Systolic blood pressure 117 mm[Hg] Ruperto Ledezma MD Work Phone: [facility] 03-28-2023 14:19-0500 Body weight 108.86 kg 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FORM [employer]ER Work Phone: [facility] 03-28-2023 14:19-0500 Diastolic blood pressure 81 mm[Hg] 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FORM [employer]ER Work Phone: [facility] 03-28-2023 14:19-0500 Heart rate 99 /min 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FORM [employer]ER Work Phone: [facility] 03-28-2023 14:19-0500 SaO2% (BldA) [Mass fraction] 97 % 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FORM [employer]ER Work Phone: [facility] 03-28-2023 14:19-0500 Systolic blood pressure 114 mm[Hg] 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FORM [employer]ER Work Phone: [facility] 01-29-2023 16:45-0500 Body height 182.88 cm Keke Bright Other [facility] Other 01-29-2023 16:45-0500 Body mass index (BMI) [Ratio] 30.92 kg/m2 Keke Bright Other [facility] Other 01-29-2023 16:45-0500 Body temperature 98 [degF] Keke Bright Other [facility] Other 01-29-2023 16:45-0500 Body weight 103.42 kg Keke Bright Other [facility] Other 01-29-2023 16:45-0500 Diastolic blood pressure 86 mm[Hg] Keke Bright Other [facility] Other 01-29-2023 16:45-0500 Respiratory rate 18 /min Keke Bright Other [facility] Other 01-29-2023 16:45-0500 SaO2% (BldA) [Mass fraction] 98 % Keke Bright Other [facility] Other 01-29-2023 16:45-0500 Systolic blood pressure 133 mm[Hg] Keke Bright Other [facility] Other 01-01-2023 10:53-0500 Body height 180 cm Ruperto Ledezma MD Work Phone: [facility] 01-01-2023 10:53-0500 Body temperature 97 [degF] Ruperto Ledezma MD Work Phone: [facility] 01-01-2023 10:53-0500 Body weight 102.6 kg Ruperto Ledezma MD Work Phone: [facility] 01-01-2023 10:53-0500 Diastolic blood pressure 89 mm[Hg] Ruperto Ledezma MD Work Phone: [facility] 01-01-2023 10:53-0500 Heart rate 104 /min Ruperto Ledezma MD Work Phone: [facility] 01-01-2023 10:53-0500 Respiratory rate 16 /min Ruperto Ledezma MD Work Phone: [facility] 01-01-2023 10:53-0500 SaO2% (BldA) [Mass fraction] 97 % Ruperto Ledezma MD Work Phone: [facility] 01-01-2023 10:53-0500 Systolic blood pressure 133 mm[Hg] Ruperto Ledezma MD Work Phone: [facility] 10-18-2022 11:01-0400 Body temperature 98.2 [degF] Irene Han 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FORM [employer]ER Work Phone: [facility] 10-18-2022 11:01-0400 Body weight 102.01 kg Irene Han 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FORM [employer]ER Work Phone: [facility] 10-18-2022 11:01-0400 Diastolic blood pressure 81 mm[Hg] Irene Han 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FORM [employer]ISER Work Phone: [facility] 10-18-2022 11:01-0400 Heart rate 96 /min Irene Han 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FORM [employer]ER Work Phone: [facility] 10-18-2022 11:01-0400 SaO2% (BldA) [Mass fraction] 96 % Irene Han 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FORM [employer]ER Work Phone: [facility] 10-18-2022 11:01-0400 Systolic blood pressure 116 mm[Hg] Irene Han 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FORM [employer]ER Work Phone: [facility] 09-13-2022 10:06-0400 Body weight 103.87 kg Jani Carver MD Work Phone: [facility] 09-13-2022 10:06-0400 Diastolic blood pressure 87 mm[Hg] Jani Carver MD Work Phone: [facility] 09-13-2022 10:06-0400 Heart rate 95 /min Jani Carver MD Work Phone: [facility] 09-13-2022 10:06-0400 Respiratory rate 16 /min Jani Carver MD Work Phone: [facility] 09-13-2022 10:06-0400 SaO2% (BldA) [Mass fraction] 96 % Jani Carver MD Work Phone: [facility] 09-13-2022 10:06-0400 Systolic blood pressure 121 mm[Hg] Jain Carver MD Work Phone: [facility] 08-22-2022 14:33-0400 Body temperature 98.6 [degF] Cyn Hernandez MD Work Phone: [facility] 08-22-2022 14:33-0400 Diastolic blood pressure 74 mm[Hg] Cyn Hernandez MD Work Phone: [facility] 08-22-2022 14:33-0400 Heart rate 100 /min Cyn Hernandez MD Work Phone: [facility] 08-22-2022 14:33-0400 SaO2% (BldA) [Mass fraction] 94 % Cyn Hernandez MD Work Phone: [facility] 08-22-2022 14:33-0400 Systolic blood pressure 105 mm[Hg] Cyn Hernandez MD Work Phone: [facility] 08-01-2022 09:56-0400 Body height 180.3 cm Don Chan 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FORM [employer]ER Work Phone: [facility] 08-01-2022 09:56-0400 Body temperature 97 [degF] Don Chan 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FORM [employer]ER Work Phone: [facility] 08-01-2022 09:56-0400 Diastolic blood pressure 80 mm[Hg] Don Chan 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FORM [employer]ER Work Phone: [facility] 08-01-2022 09:56-0400 Heart rate 100 /min Don Chan 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FORM [employer]ER Work Phone: [facility] 08-01-2022 09:56-0400 SaO2% (BldA) [Mass fraction] 95 % Donnan Chan 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FORM [employer]ER Work Phone: [facility] 08-01-2022 09:56-0400 Systolic blood pressure 115 mm[Hg] Donnan Alexandere 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FORM [employer]ER Work Phone: [facility] 07-19-2022 10:32-0400 Body weight 105.33 kg Irene Han APRN.FORM [employer]ER Work Phone: [facility] 07-19-2022 10:32-0400 Diastolic blood pressure 84 mm[Hg] Irene Han 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FORM [employer]ER Work Phone: [facility] 07-19-2022 10:32-0400 Heart rate 104 /min Irene Han 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FORM [employer]ER Work Phone: [facility] 07-19-2022 10:32-0400 SaO2% (BldA) [Mass fraction] 94 % Irene Han 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FORM [employer]ER Work Phone: [facility] 07-19-2022 10:32-0400 Systolic blood pressure 124 mm[Hg] Irene Han 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FORM [employer]ER Work Phone: [facility] 07-18-2022 11:06-0400 Body height 182.9 cm Cyn Hernandez MD Work Phone: [facility] 07-18-2022 11:06-0400 Body temperature 98.2 [degF] Cyn Hernandez MD Work Phone: [facility] 07-18-2022 11:06-0400 Body weight 106.41 kg Cyn Hernandez MD Work Phone: [facility] 07-18-2022 11:06-0400 Diastolic blood pressure 86 mm[Hg] Cyn Hernandez MD Work Phone: [facility] 07-18-2022 11:06-0400 Heart rate 103 /min Cyn Hernandez MD Work Phone: [facility] 07-18-2022 11:06-0400 Respiratory rate 18 /min Cyn Hernandez MD Work Phone: [facility] 07-18-2022 11:06-0400 SaO2% (BldA) [Mass fraction] 96 % Cyn Hernandez MD Work Phone: [facility] 07-18-2022 11:06-0400 Systolic blood pressure 124 mm[Hg] Cyn Hernandez MD Work Phone: [facility] 05-01-2022 09:51-0400 Body temperature 98.01 [degF] Treatment Rej Work Phone: [facility] 05-01-2022 09:51-0400 Diastolic blood pressure 87 mm[Hg] Treatment Rej Work Phone: [facility] 05-01-2022 09:51-0400 Heart rate 106 /min Treatment Rej Work Phone: [facility] 05-01-2022 09:51-0400 Respiratory rate 18 /min Treatment Rej Work Phone: [facility] 05-01-2022 09:51-0400 Systolic blood pressure 123 mm[Hg] Treatment Rej Work Phone: [facility] 04-23-2022 09:49-0500 Body weight 106.91 kg Irene Han 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FORM [employer]ER Work Phone: [facility] 04-23-2022 09:49-0500 Diastolic blood pressure 77 mm[Hg] Irene Han 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FORM [employer]ER Work Phone: [facility] 04-23-2022 09:49-0500 Heart rate 99 /min Irene Han 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FORM [employer]ER Work Phone: [facility] 04-23-2022 09:49-0500 Systolic blood pressure 113 mm[Hg] Irene Han 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FORM [employer]ER Work Phone: [facility] 03-07-2022 11:37-0500 Body temperature 98.4 [degF] Cyn Hernandez MD Work Phone: [facility] 03-07-2022 11:37-0500 Diastolic blood pressure 70 mm[Hg] Cyn Hernandez MD Work Phone: [facility] 03-07-2022 11:37-0500 Heart rate 106 /min Cyn Hernandez MD Work Phone: [facility] 03-07-2022 11:37-0500 SaO2% (BldA) [Mass fraction] 98 % Cyn Hernandez MD Work Phone: [facility] 03-07-2022 11:37-0500 Systolic blood pressure 113 mm[Hg] Cyn Hernandez MD Work Phone: [facility] 02-14-2022 12:23-0500 Body temperature 96.8 [degF] Treatment Rej Work Phone: [facility] 02-14-2022 12:23-0500 Diastolic blood pressure 89 mm[Hg] Treatment Rej Work Phone: [facility] 02-14-2022 12:23-0500 Heart rate 102 /min Treatment Rej Work Phone: [facility] 02-14-2022 12:23-0500 Systolic blood pressure 134 mm[Hg] Treatment Rej Work Phone: [facility] 01-25-2022 14:37-0500 Body temperature 98.6 [degF] Irene Han APRN.FORM [employer]ER Work Phone: [facility] 01-25-2022 14:37-0500 Body weight 106.82 kg Irene Han APRN.FORM [employer]ER Work Phone: [facility] 01-25-2022 14:37-0500 Diastolic blood pressure 67 mm[Hg] Irene Han APRN.FORM [employer]ER Work Phone: [facility] 01-25-2022 14:37-0500 Heart rate 109 /min Irene Han APRN.FORM [employer]ER Work Phone: [facility] 01-25-2022 14:37-0500 SaO2% (BldA) [Mass fraction] 96 % Irene Han APRN.FORM [employer]ER Work Phone: [facility] 01-25-2022 14:37-0500 Systolic blood pressure 115 mm[Hg] Irene Han APRN.FORM [employer]ER Work Phone: [facility] 01-18-2022 10:30-0500 Body temperature 96.91 [degF] Treatment Rej Work Phone: [facility] 12-01-2022 10:30-0500 Diastolic blood pressure 86 mm[Hg] Treatment Rej Work Phone: [facility] 01-18-2022 10:30-0500 Heart rate 108 /min Treatment Rej Work Phone: [facility] 01-18-2022 10:30-0500 Systolic blood pressure 125 mm[Hg] Treatment Rej Work Phone: [facility] 12-27-2021 09:25-0500 Body temperature 97.5 [degF] Sylvia Mancilla 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FORM [employer] Work Phone: [facility] 12-27-2021 09:25-0500 Body weight 105.01 kg Sylviamariusz Mancilla 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FORM [employer] Work Phone: [facility] 12-27-2021 09:25-0500 Diastolic blood pressure 74 mm[Hg] Sylvia Mancilla 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FORM [employer]ER Work Phone: [facility] 12-27-2021 09:25-0500 Heart rate 103 /min Sylvia Mancilla 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FORM [employer]ER Work Phone: [facility] 12-27-2021 09:25-0500 SaO2% (BldA) [Mass fraction] 98 % Sylviamariusz Mancilla 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FORM [employer]ER Work Phone: [facility] 12-27-2021 09:25-0500 Systolic blood pressure 116 mm[Hg] Sylvia Mancilla 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FORM [employer]ER Work Phone: [facility] 12-06-2021 13:34-0400 Body temperature 97.11 [degF] Treatment Rej Work Phone: [facility] 12-06-2021 13:34-0400 Diastolic blood pressure 88 mm[Hg] Treatment Rej Work Phone: [facility] 12-06-2021 13:34-0400 Heart rate 92 /min Treatment Rej Work Phone: [facility] 12-06-2021 13:34-0400 Respiratory rate 18 /min Treatment Rej Work Phone: [facility] 12-06-2021 13:34-0400 Systolic blood pressure 199 mm[Hg] Treatment Rej Work Phone: [facility] 11-15-2021 13:08-0400 Body height 181 cm Cyn Hernandez MD Work Phone: [facility] 11-15-2021 13:08-0400 Body temperature 98.71 [degF] Cyn Hernandez MD Work Phone: [facility] 11-15-2021 13:08-0400 Body weight 102.78 kg Cyn Hernandez MD Work Phone: [facility] 11-15-2021 13:08-0400 Diastolic blood pressure 77 mm[Hg] Cyn Hernandez MD Work Phone: [facility] 11-15-2021 13:08-0400 Heart rate 100 /min Cyn Hernandez MD Work Phone: [facility] 11-15-2021 13:08-0400 SaO2% (BldA) [Mass fraction] 98 % Cyn Hernandez MD Work Phone: [facility] 11-15-2021 13:08-0400 Systolic blood pressure 118 mm[Hg] Cyn Hernandez MD Work Phone: [facility] 10-26-2021 13:20-0400 Body temperature 97.7 [degF] Irene Han APRN.FORM [employer] Work Phone: [facility] 10-26-2021 13:20-0400 Body weight 102.97 kg Irene Han APRN.FORM [employer]ER Work Phone: [facility] 10-26-2021 13:20-0400 Diastolic blood pressure 88 mm[Hg] Irene Han APRN.FORM [employer] Work Phone: [facility] 10-26-2021 13:20-0400 Heart rate 100 /min Irene Han APRN.FORM [employer]ER Work Phone: [facility] 10-26-2021 13:20-0400 SaO2% (BldA) [Mass fraction] 97 % Irene Han APRN.FORM [employer]ER Work Phone: [facility] 10-26-2021 13:20-0400 Systolic blood pressure 117 mm[Hg] Irene Han 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FORM [employer] Work Phone: [facility] 10-26-2021 11:28-0400 Body temperature 97.59 [degF] Treatment Rej Work Phone: [facility] 10-26-2021 11:28-0400 Diastolic blood pressure 82 mm[Hg] Treatment Rej Work Phone: [facility] 10-26-2021 11:28-0400 Heart rate 108 /min Treatment Rej Work Phone: [facility] 10-26-2021 11:28-0400 Systolic blood pressure 133 mm[Hg] Treatment Rej Work Phone: [facility] 10-25-2021 10:01-0400 Body temperature 98.2 [degF] Sylvia Mancilla 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FORM [employer] Work Phone: [facility] 10-25-2021 10:01-0400 Body weight 102.78 kg Sylvia Mancilla 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FORM [employer] Work Phone: [facility] 10-25-2021 10:01-0400 Diastolic blood pressure 87 mm[Hg] Sylvia Mancilla 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FORM [employer]ER Work Phone: [facility] 10-25-2021 10:01-0400 Heart rate 102 /min Sylvia Mancilla APRN.FORM [employer]ER Work Phone: [facility] 10-25-2021 10:01-0400 SaO2% (BldA) [Mass fraction] 97 % Sylvia Mancilla 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FORM [employer] Work Phone: [facility] 10-25-2021 10:01-0400 Systolic blood pressure 112 mm[Hg] Sylvia Mancilla APRN.FORM [employer]ER Work Phone: [facility] 09-06-2021 12:40-0400 Body temperature 97.7 [degF] Treatment Rej Work Phone: [facility] 09-06-2021 12:40-0400 Body weight 101.88 kg Treatment Rej Work Phone: [facility] 09-06-2021 12:40-0400 Diastolic blood pressure 73 mm[Hg] Treatment Rej Work Phone: [facility] 09-06-2021 12:40-0400 Heart rate 109 /min Treatment Rej Work Phone: [facility] 09-06-2021 12:40-0400 Systolic blood pressure 111 mm[Hg] Treatment Rej Work Phone: [facility] 07-26-2021 11:03-0400 Body temperature 97.3 [degF] Treatment Rej Work Phone: [facility] 07-26-2021 11:03-0400 Diastolic blood pressure 83 mm[Hg] Treatment Rej Work Phone: [facility] 07-26-2021 11:03-0400 Heart rate 99 /min Treatment Rej Work Phone: [facility] 07-26-2021 11:03-0400 Respiratory rate 18 /min Treatment Rej Work Phone: [facility] 07-26-2021 11:03-0400 Systolic blood pressure 126 mm[Hg] Treatment Rej Work Phone: [facility] 07-05-2021 08:31-0400 Body temperature 98.1 [degF] Treatment Rej Work Phone: [facility] 07-05-2021 08:31-0400 Diastolic blood pressure 87 mm[Hg] Treatment Rej Work Phone: [facility] 07-05-2021 08:31-0400 Heart rate 103 /min Treatment Rej Work Phone: [facility] 07-05-2021 08:31-0400 Respiratory rate 18 /min Treatment Rej Work Phone: [facility] 07-05-2021 08:31-0400 Systolic blood pressure 121 mm[Hg] Treatment Rej Work Phone: [facility] 06-14-2021 08:25-0400 Body height 181 cm Cyn Hernandez MD Work Phone: [facility] 06-14-2021 08:25-0400 Body temperature 98.01 [degF] Cyn Hernandez MD Work Phone: [facility] 06-14-2021 08:25-0400 Diastolic blood pressure 74 mm[Hg] Cyn Hernandez MD Work Phone: [facility] 06-14-2021 08:25-0400 Heart rate 90 /min Cyn Hernandez MD Work Phone: [facility] 06-14-2021 08:25-0400 Systolic blood pressure 108 mm[Hg] Cyn Hernandez MD Work Phone: [facility] 05-17-2021 12:31-0400 Body temperature 97.2 [degF] Treatment Rej Work Phone: [facility] 05-17-2021 12:31-0400 Diastolic blood pressure 82 mm[Hg] Treatment Rej Work Phone: [facility] 05-17-2021 12:31-0400 Heart rate 94 /min Treatment Rej Work Phone: [facility] 05-17-2021 12:31-0400 SaO2% (BldA) [Mass fraction] 97 % Treatment Rej Work Phone: [facility] 05-17-2021 12:31-0400 Systolic blood pressure 124 mm[Hg] Treatment Rej Work Phone: [facility] 05-17-2021 11:09-0400 Body temperature 98.01 [degF] Irene Han APRN.FORM RAISER Work Phone: [facility] 05-17-2021 11:09-0400 Diastolic blood pressure 72 mm[Hg] Irene Han APRN.FORM RAISER Work Phone: [facility] 05-17-2021 11:09-0400 Heart rate 88 /min Irene Han APRN.FORM RAISER Work Phone: [facility] 05-17-2021 11:09-0400 SaO2% (BldA) [Mass fraction] 98 % Irene Han APRN.FORM RAISER Work Phone: [facility] 05-17-2021 11:09-0400 Systolic blood pressure 120 mm[Hg] Irene Han APRN.FORM RAISER Work Phone: [facility] 02-02-2021 10:15-0500 Body height 182.88 cm Kylie Johnson Other [facility] Other 02-02-2021 10:15-0500 Body temperature 97.4 [degF] Kylie Johnson Other [facility] Other 02-02-2021 10:15-0500 Respiratory rate 18 /min Kylie Johnson Other [facility] Other 02-02-2021 10:15-0500 SaO2% (BldA) [Mass fraction] 92 % Kylie Johnson Other [facility] Other Encounters Encounter Date Encounter Type Care Provider Facility Start: 11-13-2024 End: 11-13-2024 Chaim Lin NP Work Phone: [facility] Comment on above: Anxiety Start: 11-09-2024 End: 11-09-2024 ambulatory [facility] Start: 11-02-2024 End: 11-02-2024 Telephone encounter Mitzi Nash RN Hematology/Oncology Start: 11-02-2024 End: 11-02-2024 Telemedicine consultation with patient Irene Han APRN.FORM RAISER Work Phone: Palliative Medicine Start: 11-02-2024 End: 11-02-2024 ambulatory Irene Han APRN.CNP Work Phone: Palliative Medicine Comment on above: Palliative care by s pecialist (Primary Dx); Chronic pain syndrome; Opioid use agreement exists; 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); NSTEMI (non-ST elevated myocardial infarction) ([facility]); 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 Start: 10-31-2024 End: 11-02-2024 Refill Jani Carver MD Work Phone: Pulmonary Medicine Comment on above: Refill Request Start: 10-29-2024 End: 10-30-2024 ambulatory Irene Han 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FORM RAISER Work Phone: Palliative Medicine Start: 10-29-2024 End: 10-30-2024 Patient encounter procedure Irene Han 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FORM RAISER Work Phone: Palliative Medicine Comment on above: Appointment Start: 10-27-2024 End: 10-27-2024 Refill Cheryl Guerrero APRN.FORM RAISER Work Phone: Palliative Medicine Comment on above: Refill Request Start: 10-05-2024 End: 10-06-2024 Refill Sheila Lin NP Work Phone: [facility] Internal [facility] Comment on above: Gastroesophageal ref lux disease, unspecified whether esophagitis present Start: 09-28-2024 End: 09-28-2024 Refill Kaia Mandujano MA [facility] Comment on above: Hx of pulmonary embo ciara (Primary Dx) Refill Request Start: 09-14-2024 End: 09-14-2024 Office outpatient visit 15 minutes Bee Vail MD Work Phone: [facility] Internal [facility] Comment on above: Herpes zoster withou t complication (Primary Dx) Start: 09-14-2024 End: 09-14-2024 ambulatory BEE VAIL Not Available Start: 09-09-2024 End: 09-09-2024 Bamboo flowsheet Cristine Sharma [employer] Work Phone: [facility] Start: 09-09-2024 End: 09-09-2024 Bamboo flowsheet Cristine Sharma [employer] Work Phone: [facility] Start: 09-09-2024 End: 09-09-2024 ambulatory CRISTINE SHARMA Not Available Start: 09-09-2024 End: 09-09-2024 Patient encounter procedure Cristine Sharma [employer] Work Phone: [facility] Comment on above: Hormone disorder (Pr imary Dx); Symptomatic states associated with artificial menopause Start: 09-02-2024 End: 09-03-2024 Refill Bee Vail MD Work Phone: [facility] Comment on above: Nausea Start: 08-29-2024 End: 09-02-2024 Refill Jani Carver MD Work Phone: Pulmonary Medicine Comment on above: Refill Request Start: 08-24-2024 End: 08-24-2024 Clinisync Result Encounter Cristine Sharma [employer] Work Phone: [facility] External Department Unsolicited Start: 08-24-2024 End: 08-24-2024 Clinisync Result Encounter Cristine Zachary [employer] Work Phone: [facility] External Department Unsolicited Start: 08-20-2024 ambulatory Facility:[facility] Start: 08-12-2024 End: 08-12-2024 Bamboo flowsheet Cristine Zachary [employer] Work Phone: [facility] Start: 08-12-2024 End: 08-14-2024 Bamboo flowsheet Cristine Zachary [employer] Work Phone: [facility] Start: 08-12-2024 End: 08-14-2024 Clinisync Result Encounter Cristine Zachary [employer] Work Phone: [facility] External Department Unsolicited Start: 08-12-2024 End: 08-12-2024 Patient encounter procedure Cristine Zachary [employer] Work Phone: [facility] Work Phone: Start: 08-12-2024 End: 08-12-2024 Periodic preventive med est patient 40-64yrs Cristine Zachary [employer] Work Phone: [facility] Comment on above: Symptomatic states a ssociated with artificial menopause (Primary Dx); Well woman exam with routine gynecological exam; Breast cancer screening by mammogram; Hormone disorder; Folliculitis; Dyspareunia, female; Vaginal dryness, menopausal Start: 08-12-2024 End: 08-13-2024 Refill Bee Vail MD Work Phone: [facility] Comment on above: Anxiety Start: 08-10-2024 End: 08-10-2024 Refill Bee Vail MD Work Phone: [facility] Comment on above: Dermatitis Start: 08-03-2024 End: 08-03-2024 Clinisync Result Encounter Generic External Data Provider [facility] External Department Unsolicited Start: 08-03-2024 End: 08-03-2024 Clinisync Result Encounter Generic External Data Provider [facility] External Department Unsolicited Start: 08-03-2024 End: 08-03-2024 Patient encounter procedure Ruperto Ledezma MD Work Phone: Hematology/Oncology Start: 08-03-2024 End: 08-03-2024 ambulatory Ruperto Ledezma MD Work Phone: Hematology/Oncology Comment on above: 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); Autologous bone marrow transplantation status (HCC); Restrictive lung disease; Heart disease Start: 07-30-2024 End: 08-03-2024 Clinisync Result Encounter Generic External Data Provider [facility] External Department Unsolicited Start: 07-30-2024 End: 08-03-2024 Clinisync Result Encounter Generic External Data Provider [facility] External Department Unsolicited Start: 07-30-2024 End: 07-30-2024 Patient encounter procedure Irene Han APRN.CNP Work Phone: Palliative Medicine Comment on above: Palliative care by s pecialist (Primary Dx); Opioid use agreement exists; 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); Chronic pain syndrome; 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; NSTEMI (non-ST elevated myocardial infarction) (HCC) Start: 07-30-2024 End: 07-30-2024 ambulatory IRENE HAN Facility:[facility] Start: 07-28-2024 End: 07-31-2024 Refill Irene Han APRN.FORM RAISER Work Phone: Palliative Medicine Comment on above: Refill Request Cpap Start: 07-21-2024 End: 07-21-2024 Bamboo flowsheet Bee Vail MD Work Phone: [facility] Start: 07-21-2024 End: 07-21-2024 Bamboo flowsheet Bee Vail MD Work Phone: [facility] Start: 07-21-2024 End: 07-21-2024 Office outpatient visit 25 minutes Bee Vail MD Work Phone: [facility] Comment on above: NSTEMI (non-ST eleva caleb myocardial infarction) (CMS/HCC) (Primary Dx); Acute systolic heart failure (CMS/HCC); Mixed hyperlipidemia (CMS/HCC); Inappropriate sinus tachycardia (CMS/HCC); Hx of pulmonary embolus Start: 07-21-2024 End: 07-21-2024 ambulatory BEE VAIL Not Available Start: 07-20-2024 End: 07-20-2024 ambulatory [facility] Start: 07-09-2024 Evaluation and management of inpatient [facility] Start: 07-08-2024 Evaluation and management of inpatient [facility] Start: 07-07-2024 Evaluation and management of inpatient [facility] Start: 07-07-2024 Evaluation and management of inpatient [facility] Start: 07-07-2024 Evaluation and management of inpatient [facility] Start: 07-06-2024 End: 07-09-2024 Evaluation and management of inpatient [facility] Start: 07-04-2024 End: 07-05-2024 Refill Sheila Lin NP Work Phone: [facility] Comment on above: Anxiety; Major depressive disorder, single episode, mild (HCC) (CMS/HCC); Neuropathy Start: 06-25-2024 End: 06-25-2024 Refill Irene Han APRN.FORM RAISER Work Phone: Palliative Medicine Comment on above: Refill Request Start: 06-24-2024 End: 06-25-2024 Refill Jani Carver MD Work Phone: Pulmonary Medicine Comment on above: Refill Request Start: 06-18-2024 End: 06-18-2024 Orders Only Bee Vail MD Work Phone: [facility] Comment on above: Primary insomnia Start: 06-08-2024 End: 06-08-2024 Bamboo flowsheet Sheila Lin [employer] Work Phone: [facility] Start: 06-08-2024 End: 06-08-2024 Bamboo flowsheet Sheila Lin [employer] Work Phone: [facility] Start: 06-08-2024 End: 06-09-2024 Patient encounter procedure Jani Carver MD Work Phone: Pulmonary Medicine Comment on above: C-pap Start: 06-08-2024 End: 06-09-2024 ambulatory Jani Carver MD Work Phone: Pulmonary Medicine Start: 06-08-2024 End: 06-08-2024 Office outpatient visit 25 minutes Sheila Lin [employer] Work Phone: [facility] Comment on above: Asthma, unspecified asthma severity, unspecified whether complicated, unspecified whether persistent (CMS/HCC) (Primary Dx); Restrictive lung disease; Anxiety; Major depressive disorder, single episode, mild (HCC) (CMS/HCC); Primary insomnia; Nodular sclerosing Hodgkin's lymphoma, unspecified body region (CMS/HCC); Screening mammogram for breast cancer; Neuropathy; Left leg pain Start: 06-04-2024 End: 06-09-2024 Telephone encounter 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 APRN.FORM RAISER Work Phone: Internal Medicine Comment on above: Orders Start: 05-29-2024 End: 05-29-2024 Clinisync Result Encounter Generic External Data Provider [facility] External Department Unsolicited Start: 05-29-2024 End: 05-29-2024 Clinisync Result Encounter Generic External Data Provider [facility] External Department Unsolicited Start: 05-29-2024 End: 06-04-2024 Follow-up encounter 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 APRN.FORM RAISER Work Phone: [facility] Provider Adult Start: 05-29-2024 End: 05-29-2024 ambulatory BEE VAIL Facility:[facility] Start: 05-29-2024 End: 05-29-2024 Subsequent hospital visit by physician General Olegario rAtis Mc Work Phone: Radiology Comment on above: Pleural effusion [J9 0] Start: 05-27-2024 End: 05-28-2024 Refill Bee Vail MD Work Phone: [facility] Comment on above: Asthma, unspecified asthma severity, unspecified whether complicated, unspecified whether persistent (CMS/HCC) (Primary Dx) Start: 05-23-2024 End: 05-25-2024 ambulatory Irene Han APRN.FORM RAISER Work Phone: Palliative Medicine Comment on above: Pain Start: 05-20-2024 End: 05-20-2024 Follow-up encounter 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 APRN.FORM RAISER Work Phone: Pulmonary Medicine Comment on above: Cpap Order Start: 05-15-2024 End: 05-15-2024 [facility] Start: 05-12-2024 End: 05-12-2024 ambulatory KYLIE MILLER Facility:[facility] Start: 05-12-2024 End: 05-12-2024 Office outpatient visit 25 minutes 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 APRN.FORM RAISER Work Phone: Pulmonary Medicine Comment on above: Pleural effusion (Pr imary Dx); Bronchiectasis without complication (HCC); Restrictive lung disease; Chronic respiratory failure with hypoxia (HCC); Pulmonary hypertension (HCC) Start: 05-11-2024 End: 05-11-2024 Refill Bee Vail MD Work Phone: [facility] Comment on above: Anxiety Start: 05-08-2024 ambulatory JANI CARVER Facility:[facility] Start: 05-08-2024 End: 05-08-2024 Subsequent hospital visit by physician [facility] Work Phone: [facility] Radiology Ultrasound Comment on above: Pleural effusion [J9 0] Start: 05-07-2024 End: 05-07-2024 ambulatory Irene Han 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FORM RAISER Work Phone: Palliative Medicine Comment on above: [...] Start: 05-04-2024 End: 05-04-2024 ambulatory RUPERTO LEDEZMA Facility:[facility] Start: 05-04-2024 End: 05-04-2024 Office outpatient visit [...] Patient Update Start: 04-23-2024 End: 04-23-2024 ambulatory BEE Degroot VAIL Facility:[facility] Start: 04-23-2024 End: 04-23-2024 Patient encounter procedure Irene Han APRN.FORM RAISER Work Phone: Palliative Medicine Comment on above: [...] Start: 04-10-2024 End: 04-13-2024 ambulatory 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 APRN.FORM RAISER Work Phone: Pulmonary Medicine Comment on above: Handicap placard Start: 04-08-2024 End: 04-08-2024 Bamboo flowsjam Zavala MD Work Phone: [facility] Start: 04-08-2024 End: 04-08-2024 Bamshellie Zavala MD Work Phone: [facility] [...] Start: 04-07-2024 End: 04-07-2024 Refill Irene Han 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FORM RAISER Work Phone: Palliative Medicine Comment on above: Refill Request Start: 04-06-2024 End: 04-06-2024 Telephone encounter Ruperto Ledezma MD Work Phone: Hematology/Oncology Comment on above: Orders Start: 04-02-2024 End: 04-02-2024 Refill Irene Han 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FORM RAISER Work Phone: Palliative Medicine Comment on above: Refill Request Start: 03-25-2024 End: 04-02-2024 ambulatory 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FORM RAISER Work Phone: Pulmonary Medicine Comment on above: Nebulizer Start: 03-16-2024 End: 03-16-2024 Telephone encounter Carlo Medellin MA Pulmonary Medicine Comment on above: Care Coordination Start: 03-13-2024 End: 03-13-2024 Clinisync Result Encounter Generic External Data Provider [facility] External Department Unsolicited Start: 03-13-2024 End: 03-13-2024 Clinisync Result Encounter Generic External Data Provider [facility] External Department Unsolicited Start: 03-13-2024 End: 03-13-2024 Refill Sheila Lin [employer] Work Phone: [facility] Comment on above: Nerve pain Start: 03-11-2024 End: 03-11-2024 Bamboo flowsheet Sheila Lin [employer] Work Phone: [facility] Start: 03-11-2024 End: 03-11-2024 Bamboo flowsheet Sheila Lin [employer] Work Phone: [facility] Start: 03-11-2024 End: 03-11-2024 ambulatory SHEILA LIN Not Available Start: 03-11-2024 End: 03-11-2024 Office outpatient visit 25 minutes Sheila Lin [employer] Work Phone: [facility] Comment on above: Asthma, unspecified asthma severity, unspecified whether complicated, unspecified whether persistent (CMS/HCC) (Primary Dx); Restrictive lung disease; Major depressive disorder, single episode, mild (HCC) (CMS/HCC); Anxiety; Primary insomnia; Neuropathy; Pulmonary hypertension (CMS/HCC); Nodular sclerosis Hodgkin lymphoma, unspecified site (CMS/HCC) Start: 03-04-2024 End: 03-05-2024 ambulatory Glendy Russ DO Work Phone: Pulmonology [facility] Comment on above: Question Refill Request Start: 02-27-2024 End: 02-27-2024 Telemedicine consultation with patient Irene Han APRN.FORM RAISER Work Phone: Palliative Medicine Start: 02-27-2024 End: 02-27-2024 ambulatory Irene Han APRN.FORM RAISER Work Phone: Palliative Medicine Comment on above: Palliative care by s pecialist (Primary Dx); 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); Opioid use agreement exists; Chronic pain syndrome; Muscle cramps; Pulmonary hypertension (HCC) Start: 02-27-2024 End: 02-27-2024 Patient encounter procedure Irene Han APRN.FORM RAISER Work Phone: Palliative Medicine Comment on above: Appointment Changed Start: 02-22-2024 End: 02-24-2024 Refill 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 APRN.FORM RAISER Work Phone: Pulmonary Medicine Comment on above: [...] Request Start: 01-24-2024 End: 01-24-2024 Telephone encounter Glendy Russ DO Work Phone: [facility] Invasive Cardiology Comment on above: Procedure Scheduling (RHC) Start: 01-21-2024 End: 01-21-2024 ambulatory GLENDY RUSS Facility:[facility] Start: 01-21-2024 End: 01-21-2024 Office outpatient new 45 minutes Glendy Russ DO Work Phone: Pulmonology [facility] Comment on above: Pulmonary hypertensi on (HCC) [...] Subsequent hospital visit by physician [facility] Work Phone: [facility] Radiology Molecular Comment on above: 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] Start: 01-15-2024 End: 01-15-2024 ambulatory SHEELA CHINO Facility:[facility] Start: 01-15-2024 End: 01-15-2024 ambulatory BEE VAIL Facility:[facility] Start: 01-15-2024 End: 01-15-2024 Patient encounter procedure Pulm Lab [facility] Rej 2 Work Phone: Pulmonary Medicine Comment on above: Spirometry Start: 01-14-2024 End: 01-14-2024 Telephone encounter Jocelyn Edwards RT(R) [facility] Radiology Molecular Comment on above: Radiology NM (Appoin tment reminder.) Start: 01-13-2024 End: 01-14-2024 Refill Irene Han APRN.FORM RAISER Work Phone: Palliative Medicine Comment on above: Refill Request Start: 01-08-2024 End: 01-14-2024 Patient encounter procedure Jani Carver MD Work Phone: Pulmonary Medicine Comment on above: Test results Start: 01-08-2024 End: 01-14-2024 ambulatory Jani Carver MD Work Phone: Pulmonary Medicine Start: 01-07-2024 End: 01-07-2024 Telephone encounter Jani Carver MD Work Phone: Pulmonary Medicine Comment on above: Cosmetologist Apprentice - O ther Start: 01-06-2024 End: 01-06-2024 [...] Start: 01-03-2024 End: 01-06-2024 ambulatory 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 APRN.FORM RAISER Work Phone: Pulmonary Medicine Comment on above: 02 Start: 01-03-2024 End: 01-03-2024 Subsequent hospital visit by physician [facility] 3 Work Phone: [facility] Radiology Ultrasound Comment on above: Pleural effusion, le ft [J90] Start: 01-01-2024 End: 01-02-2024 ambulatory Irene Emely VALENTE Work Phone: Palliative Medicine Comment on above: Pain Start: 12-26-2023 End: 12-26-2023 Telemedicine consultation with patient Irene Han LORY.FORM RAISER Work Phone: Palliative Medicine Start: 12-26-2023 End: 12-26-2023 ambulatory Irene Han LORY.FORM RAISER Work Phone: Palliative Medicine Comment on above: [...] 12-25-2023 End: 12-25-2023 Telephone encounter 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 APRN.FORM RAISER Work Phone: Pulmonary Medicine Start: 12-23-2023 End: 12-23-2023 ambulatory Irenenydia Han APRN.CNP Work Phone: Palliative Medicine Start: 12-23-2023 End: 12-23-2023 Patient encounter procedure Irene Han FORM RAISER Work Phone: Palliative Medicine Comment on above: Appointment. Start: 12-22-2023 End: 12-25-2023 ambulatory 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 APRN.CNP Work Phone: Pulmonary Medicine Comment on above: CT scan Start: 12-20-2023 End: 12-23-2023 Clinisync Result Encounter Generic External Data Provider [facility] External Department Unsolicited Start: 12-20-2023 End: 12-23-2023 Clinisync Result Encounter Generic External Data Provider [facility] External Department Unsolicited Start: 12-18-2023 End: 12-20-2023 Evaluation and management of inpatient BEE VAIL Facility:[facility] Start: 12-17-2023 End: 12-17-2023 Telephone encounter Kylie Millardaleksandra VALENTE Work Phone: Pulmonary Medicine Comment on above: oxygen orders Start: 12-17-2023 End: 12-18-2023 ambulatory Kylie Paul JAIMEFORM RAISER Work Phone: Pulmonary Medicine Comment on above: Question Start: 12-17-2023 End: 12-17-2023 Office outpatient visit 40 minutes Kylie Paul JAIMEFORM RAISER Work Phone: Pulmonary Medicine Comment on above: Acute hypoxic respir atory failure (HCC) (Primary Dx); Pneumonia due to infectious organism, unspecified laterality, unspecified part of lung; Restrictive lung disease; Bronchiectasis without complication (HCC) Start: 12-15-2023 End: 12-16-2023 Refill Irene Han APRN.FORM RAISER Work Phone: Palliative Medicine Comment on above: Refill Request Start: 12-13-2023 End: 12-16-2023 ambulatory Kyliekhai Millardaleksandra JAIMEFORM RAISER Work Phone: Pulmonary Medicine Comment on above: [...] [C81.12] Start: 12-09-2023 End: 12-09-2023 Refill Charlee Varela Pavel 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FORM RAISER Work Phone: Palliative Medicine Comment on above: Refill Request Start: 12-04-2023 End: 12-04-2023 Bamboo flowsheet Gabrielle Zavala MD Work Phone: [facility] Start: 12-04-2023 End: 12-04-2023 Bamboo flowsheet Gabrielle Zavala MD Work Phone: [facility] Start: 12-04-2023 End: 12-04-2023 Office outpatient visit 25 minutes Gabrielle Zavala MD Work Phone: [facility] Comment on above: Chronic rhinitis (Pr imary Dx); Recurrent sinus infections Start: 12-04-2023 End: 12-04-2023 ambulatory GABRIELLE ZAVALA Not Available Start: 12-01-2023 End: 12-02-2023 Refill 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FORM RAISER Work Phone: Pulmonary Medicine Comment on above: Refill Request Start: 11-28-2023 End: 11-28-2023 Bamboo flowsheet Sheila Lin [employer]MENT Work Phone: [facility] Start: 11-28-2023 End: 11-28-2023 Bamboo flowsheet Sheila Lin [employer] Work Phone: [facility] Start: 11-28-2023 End: 11-28-2023 ambulatory Irene Han 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FORM RAISER Work Phone: Palliative Medicine Comment on above: Pain mgmt. Start: 11-28-2023 End: 11-28-2023 Office outpatient visit 25 minutes Sheila Lin [employer]PARTMENT Work Phone: [facility] Comment on [...] Dx) Scans Inhaler Start: 11-21-2023 End: 11-21-2023 ambulatory Severo Ardon RT(R) Radiology Comment on above: Radiology XR Start: 11-21-2023 End: 11-21-2023 Patient encounter procedure Otiliosushma Ardon RT(R) Radiology Start: 11-21-2023 End: 11-21-2023 Refill 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 APRN.FORM RAISER Work Phone: Pulmonary Medicine Comment on above: Med Change Request Start: 11-21-2023 End: 11-26-2023 Telephone encounter 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 APRN.FORM RAISER Work Phone: Pulmonary Medicine Comment on above: Received Outside Med ical Records; Request Outside Medical Records Start: 11-21-2023 End: 11-21-2023 Subsequent hospital visit by physician Xr [facility] [place] Radiology Comment on above: Pneumonia due to inf ectious organism, unspecified laterality, unspecified part of lung [J18.9] Start: 11-21-2023 End: 11-21-2023 Office outpatient visit 40 minutes 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 APRN.FORM RAISER Work Phone: Pulmonary Medicine Comment on above: [...] 11-14-2023 Telemedicine consultation with patient Irene Han APRN.FORM RAISER Work Phone: Palliative Medicine Start: 11-14-2023 End: [...] Start: 11-12-2023 End: 11-13-2023 Refill Irene Han APRN.FORM RAISER Work Phone: Palliative Medicine Comment on above: Refill Request Anxiety Start: 11-11-2023 End: 11-11-2023 Clinisync Result Encounter Generic External Data Provider [facility] External Department Unsolicited Start: 11-11-2023 End: 11-11-2023 Clinisync Result Encounter Generic External Data Provider [facility] External Department Unsolicited Start: 11-11-2023 End: 11-11-2023 ambulatory Ellyn Lopez APRN.CNP Work Phone: Hematology/Oncology Comment on above: 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); Autologous bone marrow transplantation status (HCC); Other pulmonary embolism without acute cor pulmonale, unspecified chronicity (HCC); Chemotherapy-induced neuropathy (HCC) Start: 11-11-2023 End: 11-11-2023 Patient encounter procedure Ellyn Lopez APRN.CNP Work Phone: Hematology/Oncology Start: 11-08-2023 End: 11-12-2023 Telephone encounter Ellyn Lopez APRN.FORM RAISER Work Phone: Hematology/Oncology Start: 11-06-2023 End: 11-06-2023 Bamboo flowsheet Sheila Lin [employer] [employer] Work Phone: [facility] Start: 11-06-2023 End: 11-06-2023 Bamboo flowsheet Sheila Lin [facility] Work Phone: [facility] Start: 11-06-2023 End: 11-06-2023 Office outpatient visit 15 minutes Sheila Lin [employer] [employer] [facility] Work Phone: [facility] Comment on above: Pneumonia due to inf ectious organism, unspecified laterality, unspecified part of lung (Primary Dx); Acute respiratory failure, unspecified whether with hypoxia or hypercapnia (CMS/HCC); Restrictive lung disease Start: 11-06-2023 End: 11-06-2023 ambulatory SHEILA LIN Not Available Start: 11-05-2023 End: 11-05-2023 Telephone encounter Sheila Lin [facility] Work Phone: [facility] Comment on above: Record Request Start: 10-29-2023 End: 10-29-2023 ambulatory Carole Ruano APRN.CNP Work Phone: Pulmonary Medicine Start: 10-29-2023 End: 10-29-2023 Patient encounter procedure Carole Ruano APRN.FORM RAISER Work Phone: Pulmonary Medicine Comment on above: Schedule Appointment Start: 10-24-2023 End: 10-24-2023 ambulatory Katarzyna Orosco APRN.FORM RAISER Work Phone: Pain Management Comment on above: Questionnaire Submis alan Start: 10-24-2023 End: 10-24-2023 E-mail encounter from caregiver Katarzyna Orosco APRN.CNP Work Phone: Pain Management Start: 10-18-2023 End: 10-18-2023 ambulatory No Pcp CHEMICAL LAB SUPERVISOR [facility] Start: 10-18-2023 End: 10-18-2023 Patient encounter procedure No Pcp CHEMICAL LAB SUPERVISOR [facility] [place] Start: 10-17-2023 End: 10-17-2023 Patient encounter procedure Irene Han APRN.FORM RAISER Work Phone: Palliative Medicine Comment on above: Encounter for pallia tive care (Primary Dx); 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); Chemotherapy-induced neuropathy (HCC); Cancer related pain; Chronic pain syndrome Start: 10-15-2023 End: 10-15-2023 Patient encounter procedure Pulm Lab [facility] Work Phone: Pulmonary Medicine Comment on above: Spirometry Start: 10-09-2023 End: 10-10-2023 ambulatory Yasmeen Fine RT(R) Radiology Comment on above: Radiology XR Anxiety Start: 10-09-2023 End: 10-09-2023 Patient encounter procedure Yasmeen Fine RT(R) Radiology Start: 10-09-2023 End: 10-09-2023 Subsequent hospital visit by physician Xr [facility] [place] Radiology Comment on above: Polyarthralgia [M25. 50] Start: 10-09-2023 End: 10-09-2023 Office consultation new/estab patient 80 min Simin Brandt MD Work Phone: Rheumatology Comment on above: Polyarthralgia (Prim destin Dx); Psoriasis Start: 09-30-2023 Refill Charlee Zhao APRN.FORM RAISER Work Phone: Palliative Medicine Comment on above: Refill Request Start: 09-25-2023 Refill Irene Han APRN.FORM RAISER Work Phone: [facility] Palliative Medicine Comment on above: Refill [...] End: 09-19-2023 Telemedicine consultation with patient Irene Han APRN.PEDRO Work Phone: Palliative Medicine Start: 09-18-2023 End: 09-18-2023 Patient encounter procedure Anil Franco PA-C Work Phone: Otolaryngology Comment on above: Dysphagia, unspecifi ed type; Hoarseness; LPRD (laryngopharyngeal reflux disease) Start: 09-16-2023 ambulatory Irene Han APRN.PEDRO Work Phone: Palliative Medicine Comment on above: Video visit Start: 08-29-2023 Telephone encounter Irene cedillo APRN.PEDRO Work Phone: Palliative Medicine Start: 08-27-2023 End: 08-27-2023 Patient encounter procedure Sherly Hansen PA-C Work Phone: Orthopaedics Comment on above: Tendinitis, de [place] ain's (Primary Dx) Start: 08-26-2023 ambulatory Irene Han APRN.FORM RAISER Work Phone: Palliative Medicine Comment on above: Oxycodone Meds Start: 08-22-2023 Refill Carole Ruano APRN.FORM RAISER Work Phone: Pulmonary Medicine Comment on above: Refill Request Start: 08-13-2023 Refill Carole Ruano APRN.FORM RAISER Work Phone: Pulmonary Medicine Comment on above: Refill Request Start: 08-12-2023 End: 08-12-2023 ambulatory Irene Han APRN.FORM RAISER Work Phone: Palliative Medicine Comment on above: Muscle cramps (Prima ry Dx); Nodular sclerosing Hodgkin's lymphoma, unspecified body region (HCC); Chemotherapy-induced neuropathy (HCC); Encounter for palliative care; Psoriatic arthritis (HCC); Arthritis pain; Chronic nonmalignant pain; Opioid use agreement exists Start: 08-12-2023 End: 08-12-2023 Telemedicine consultation with patient Irenenydia Han APRN.FORM RAISER Work Phone: Palliative Medicine Start: 08-12-2023 E-mail encounter fro m caregiver [facility] Provider Hematology/Medical Oncology Start: 08-12-2023 Follow-up encounter [facility] Provider Hem atology/Medical Oncology Comment on above: Palliative Medicine Follow Up Start: 08-08-2023 ambulatory Irene Han APRN.CNP Work Phone: Palliative Medicine Comment on above: Oxycodone Start: 08-06-2023 End: 08-06-2023 Patient encounter procedure Carole Ruano LORY.FORM RAISER Work Phone: Pulmonary Medicine Comment on above: Pneumonia due to inf ectious organism, unspecified laterality, unspecified part of lung (Primary Dx); Pulmonary hypertension (HCC); Hospital discharge follow-up Start: 08-05-2023 End: 08-05-2023 Refill Irene Han APRN.CNP Work Phone: Palliative Medicine Comment on above: Refill Request 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); Restrictive lung disease; Anxiety and depression Start: 08-04-2023 ambulatory Irene Han APRN.CNP Work Phone: Palliative Medicine Start: 08-04-2023 Patient encounter procedure Irene Han APRN.FORM RAISER Work Phone: Palliative Medicine Comment on above: Appointment Start: 08-01-2023 ambulatory Carole Bindu JAIMEFORM RAISER Work Phone: Pulmonary Medicine Start: 08-01-2023 Patient encounter procedure Carole Ruano LORY.FORM RAISER Work Phone: Pulmonary Medicine Comment on above: Schedule Appointment Start: 07-30-2023 Orders Only Sherly Hansen PA-C Work Phone: Appointment Center Comment on above: Pain (Primary Dx) Start: 07-19-2023 End: 07-19-2023 Subsequent hospital visit by physician [facility] Qb[facility] (I-[facility]) Radiology Comment on above: Dysphagia, unspecifi ed type [R13.10] Start: 2023 ambulatory Irene Han APRN.FORM RAISER Work Phone: Palliative Medicine Comment on above: Memory Start: 2023 End: 2023 Patient encounter procedure Irene Han APRN.FORM RAISER Work Phone: Palliative Medicine Comment on above: Encounter for pallia tive care (Primary Dx); Muscle cramps; Nodular sclerosing Hodgkin's lymphoma, unspecified body region (HCC); Arthritis pain; 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 Work Phone: [facility] Speech Therapy Comment on above: Dysphagia, unspecifi ed type (Primary Dx) Start: 07-10-2023 End: 07-10-2023 Subsequent hospital visit by physician Gi/Gu [facility] Work Phone: [facility] Radiology Gastrointestinal Comment on above: Dysphagia, unspecifi ed type [R13.10] Start: 07-10-2023 End: 07-10-[address] 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); Bronchiectasis without complication (HCC); Simple chronic bronchitis (HCC) Start: 06-14-2023 E-mail encounter fro m caregiver Carole Ruano APRN.CNP Work Phone: Pulmonary Medicine Start: 06-14-2023 Follow-up encounter Carole valentin APRN.FORM RAISER Work Phone: Pulmonary Medicine Comment on above: Follow Up Start: 06-13-2023 Telephone encounter Carole valentin APRN.CNP Work Phone: Pulmonary Medicine Comment on above: Medication Authoriza tion Start: 06-13-2023 End: 06-13-2023 Office outpatient visit 40 minutes Carole Ruano APRN.FORM RAISER Work Phone: Pulmonary Medicine Comment on above: Bronchitis (Primary Dx); Acute non-recurrent pansinusitis; Oral thrush; Restrictive lung disease; Pleural effusion Start: 06-11-2023 Telephone encounter Jeny Elijah Zaidi Hematology/Oncology Comment on above: Results Start: 06-10-2023 End: 06-10-2023 ambulatory Ruperto Ledezma MD Work Phone: Hematology/Oncology Comment on above: 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); Restrictive lung disease; Malaise and fatigue Start: 06-10-2023 End: 06-10-2023 Patient encounter procedure Ruperto Ledezma MD Work Phone: Hematology/Oncology Start: 06-09-2023 Refill Irene Han APRN.FORM RAISER Work Phone: Palliative Medicine Comment on above: Refill Request Start: 05-31-2023 End: 05-31-2023 Subsequent hospital visit by physician Xr [facility] [place] Radiology Comment on above: Wheezing [R06.2] Start: 05-31-2023 End: 05-31-2023 Office outpatient visit 25 minutes Zoila Aguirre APRN.FORM RAISER Work Phone: [facility] Comment on above: Restrictive lung dis ease (Primary Dx); Wheezing Start: 05-31-2023 ambulatory Gunjan brambila RT(R) Radiology Comment on above: Radiology XR Start: 05-31-2023 Patient encounter procedure Gunjan Hi RT(R) [facility] Start: 05-28-2023 Refill Carole Ruano APRN.FORM RAISER Work Phone: Pulmonary Medicine Comment on above: [...] (HCC) [C81.12] Start: 05-12-2023 Refill Irene Han 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FORM RAISER Work Phone: Palliative Medicine Comment on above: Refill Request Start: 05-10-2023 ambulatory Ruperto Ledezma MD Work Phone: Hematology/Oncology Comment on above: Pet scan Start: 05-07-2023 Refill Irene Han 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FORM RAISER Work Phone: Palliative Medicine Comment on above: Refill Request Start: 04-19-2023 End: 04-19-2023 Subsequent hospital visit by physician [facility] Work Phone: [facility] Radiology General Comment on above: Influenza with pneum onia [J11.00] Start: 04-19-2023 End: 04-19-2023 Office outpatient visit 40 minutes Carole Ruano APRN.FORM RAISER Work Phone: Pulmonary Medicine Comment on above: [...] encounter procedure Ruperto Ledezma MD Work Phone: BREEDING Start: 04-08-2023 Refill Irene Han APRN.FORM RAISER Work Phone: Palliative Medicine Comment on above: Refill Request Start: 04-01-2023 Telephone encounter Ellyn figueroa APRN.FORM RAISER Work Phone: Hematology/Oncology Comment on above: Lab Orders Start: 03-29-2023 Refill Ellyn Keller [employer]PARTMENT Work Phone: [facility] Comment on above: COVID-19 Start: 03-29-2023 End: 03-29-2023 Office outpatient visit 15 minutes Ellyn Keller [employer] DEPARTMENT Work Phone: [facility] Comment on above: COVID-19 (Primary Dx ) Start: 03-28-2023 End: 03-28-2023 Office outpatient visit 25 minutes 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FORM RAISER Work Phone: Pulmonary Medicine Comment on above: Restrictive lung dis ease (Primary Dx); Chronic cough; Post-nasal drip; Hoarseness; Dysphagia, unspecified type; History of pulmonary embolism Start: 03-28-2023 End: 03-28-2023 ambulatory Pulm 2 Work Phone: Pulmonary Medicine Comment on above: Spirometry Start: 03-28-2023 End: 03-28-2023 Patient encounter procedure Pulm Lab [facility] 2 Work Phone: [facility] Start: 01-29-2023 End: 01-29-2023 Departed Referred MD Bee Vail Work Phone: 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] Start: 01-06-2023 Refill Irene Han 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FORM RAISER Work Phone: Palliative Medicine Comment on above: [...] encounter procedure Ruperto Ledezma MD Work Phone: BREEDING Start: 12-31-2022 Chart abstracting Ruperto kumar MD Work Phone: Hematology/Oncology Start: 12-16-2022 ambulatory Jani Carver MD Work Phone: [facility] Start: 12-16-2022 Patient encounter procedure Jani Carver MD Work Phone: Pulmonary Medicine Comment on above: Appointment Start: 11-28-2022 Refill Cyn Hernandez MD Work Phone: Hematology Comment on above: Refill Request Start: 11-26-2022 ambulatory Cyn Hernandez MD Work Phone: [facility] Start: 11-26-2022 Patient encounter procedure Cyn Hernandez MD Work Phone: Hematology Comment on above: Appointment Start: 11-13-2022 Refill Sylvia Mancilla 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FORM RAISER Work Phone: Hematology Comment on above: Refill Request Start: 11-08-2022 Refill Cyn Hernandez MD Work Phone: Hematology Comment on above: Refill Request Start: 11-05-2022 Refill Charlee Zhao 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FORM RAISER Work Phone: [facility] Comment on above: Refill Request Start: 10-25-2022 Refill Cyn Hernandez MD Work Phone: Hematology Comment on above: Refill Request Start: 10-23-2022 ambulatory Irene Han APRN.FORM RAISER Work Phone: Palliative Medicine Comment on above: Lyrica Start: 10-18-2022 Telephone encounter Kylie Mosher RN [facility] Comment on above: Insurance Authorizat ion Start: 10-18-2022 End: 10-18-2022 Patient encounter procedure Irene Han APRN.FORM RAISER Work Phone: Palliative Medicine Comment on above: Palliative care by s pecialist (Primary Dx); Nodular sclerosing Hodgkin's lymphoma, unspecified body region (HCC); Cancer related pain; Opioid use agreement exists; Muscle cramps Start: 10-18-2022 End: 10-18-2022 Nursing evaluation of patient and report Nurse Derm [facility] [place] Work Phone: Dermatology [place] Comment on above: Hidradenitis suppura tiva (Primary Dx); Painful skin lesion Start: 10-08-2022 Refill Irene Han APRN.FORM RAISER Work Phone: [facility] Palliative Medicine Comment on above: Refill Request Start: 10-06-2022 Refill Irene Han APRN.FORM RAISER Work Phone: [facility] Palliative Medicine Comment on above: Refill [...] Cyn Hernandez MD Work Phone: [facility] Start: 08-14-2022 End: 08-14-2022 Subsequent hospital visit by physician Arrival Time Radiology Work Phone: Radiology Pet CT Comment on above: Nodular sclerosing H odgkin's lymphoma, unspecified body region (HCC) [C81.10] Start: 08-13-2022 Refill Irene Han APRN.FORM RAISER Work Phone: [facility] Palliative Medicine Comment on above: Refill Request Start: 08-09-2022 Refill Cyn Hernandez MD Work Phone: Hematology Comment on above: Refill Request Start: 08-07-2022 Refill Cyn Hernandez MD Work Phone: Hematology Comment on above: Refill Request Start: 08-02-2022 Telephone encounter Don schafer 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FORM RAISER Work Phone: Pulmonary Medicine Comment on above: Patient Update Start: 08-01-2022 End: 08-01-2022 Patient encounter procedure Don Chan 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FORM RAISER Work Phone: Pulmonary Medicine Comment on above: Chronic cough (Prima ry Dx); Productive cough; Dyspnea on exertion; Opacity of lung on imaging study Start: 07-25-2022 ambulatory Nova Leija 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FORM RAISER [facility] Phone: [facility] Start: 07-25-2022 Patient encounter procedure Nova Leija 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FORM RAISER Work Phone: Dermatology [place] Comment on above: Appointment Start: 07-24-2022 Refill Cyn Hernandez MD Work Phone: Hematology Comment on above: Refill Request Start: 07-22-2022 ambulatory Cyn Hernandez MD Work Phone: Hematology Comment on above: Ativan Start: 07-19-2022 End: 07-19-2022 Patient encounter procedure Irene Han APRN.FORM RAISER Work Phone: Palliative Medicine Comment on above: Palliative care by s pecialist (Primary Dx); Opioid use agreement exists; Cancer related pain; Chemotherapy-induced neuropathy (HCC); 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); Muscle cramps Start: 07-18-2022 End: 07-18-2022 ambulatory Irene Han APRN.FORM RAISER Work Phone: [facility] Comment on above: Nodular sclerosing H odgkin's lymphoma, unspecified body region (HCC) (Primary Dx) Start: 07-18-2022 End: 07-18-2022 Patient encounter procedure Irene Han APRN.FORM RAISER Work Phone: Palliative Medicine Comment on above: Appointment Start: 07-17-2022 ambulatory Melissa Pycraft RT(R) Rad iology Ct Scan Comment on above: Radiology CT Start: 07-17-2022 Patient encounter procedure Melissa Pycraft RT(R) [facility] Start: 07-16-2022 Refill Irene Han APRN.FORM RAISER Work Phone: [facility] Palliative Medicine Comment on above: Refill Request Start: 06-21-2022 End: 06-21-[address] PEGUERO [facility] Facility:[facility] Start: 06-13-2022 Telephone encounter Don schafer APRN.CNP Work Phone: Pulmonary Medicine Comment on above: New Medication Start: 06-12-2022 End: 06-12-2022 ambulatory Cyn Hernandez MD Work Phone: Hematology Comment on above: 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); Uterine leiomyoma, unspecified location Start: 06-12-2022 End: 06-12-2022 Telemedicine consultation with patient Cny Hernandez MD Work Phone: [facility] Start: 06-11-2022 Refill Cyn Hernandez MD Work Phone: Hematology Comment on above: Refill Request Start: 06-09-2022 ambulatory Cyn Hernandez MD Work Phone: [facility] Start: 06-09-2022 Patient encounter procedure Cyn Hernandez MD Work Phone: Hematology Comment on above: Appointment Start: 05-31-2022 End: 05-31-2022 Subsequent hospital visit by physician [facility] Work Phone: Radiology Comment on above: Acute cough [R05.1] Start: 05-18-2022 End: 05-18-2022 Telemedicine consultation with patient Jane Del Valle MD Work Phone: [facility] Start: 05-18-2022 End: 05-18-2022 ambulatory Cyn [...] End: 04-23-2022 Patient encounter procedure Irene Han APRN.FORM RAISER Work Phone: Palliative Medicine Comment on above: Encounter for pallia tive care (Primary Dx); 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); Chemotherapy-induced neuropathy (HCC); Cancer related pain; Muscle cramps; Opioid use agreement exists Start: 04-20-2022 Telephone encounter Char garcia RN Work Phone: Radiation Oncology Comment on above: Post Radiation Treat ment Follow Up Start: 04-16-2022 Refill Irene Han APRN.FORM RAISER Work Phone: [facility] Palliative Medicine Comment on above: Refill Request Start: 04-11-2022 Patient encounter procedure Jane Del Valle MD Work Phone: [facility] Start: 04-11-2022 Radiation Oncology [...] End: 03-23-2022 Patient encounter procedure [facility] Provider [facility] Comment on above: 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) Start: 03-23-2022 Radiation Oncology Note [facility] Provider [facility] Department Comment on above: RTT Injection Treatment Planning Start: 03-23-2022 End: 03-23-2022 Nursing evaluation of patient and report Nurse Cathleen Main Work Phone: Radiation Oncology Comment on above: 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); Autologous bone marrow transplantation status (HCC) Start: 03-22-2022 Telephone encounter Dary Gonzalez RN Radiation Oncology Start: 03-15-2022 Refill Lesleymikayla Figueroa on 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FORM RAISER Work Phone: [facility] Medicine Comment on above: Refill Request Start: 03-12-2022 End: 03-12-2022 ambulatory Jane Del Valle MD Work Phone: Radiation Oncology Comment on above: 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) Start: 03-12-2022 End: 03-12-2022 Telemedicine consultation with patient Jane Del Valle MD Work Phone: [facility] Start: 03-07-2022 End: 03-07-2022 ambulatory Cyn Hernandez MD Work Phone: Hematology Comment on above: Chemotherapy-induced neuropathy (HCC) (Primary Dx) Start: 03-07-2022 End: 03-07-2022 Patient encounter procedure Cyn Hernandez MD Work Phone: [facility] Start: 03-05-2022 Refill Sylvia Mancilla 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FORM RAISER Work Phone: Hematology Comment on above: Refill [...] Orders Only Antonia Lisa MD Work Phone: [facility] Provider [facility]emon[facility] Start: 01-25-2022 End: 01-26-2022 ambulatory BEE A VAIL Facility:[facility] Start: 01-25-2022 End: 01-25-2022 Patient encounter procedure Irene Han APRN.FORM RAISER Work Phone: [facility] Palliative Medicine Comment on above: Encounter for pallia tive care (Primary Dx); Opioid use agreement exists; Anxiety; Cancer related pain; Chemotherapy-induced neuropathy (HCC); 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); Muscle cramps Start: 01-22-2022 Refill Irene Han APRN.FORM RAISER Work Phone: [facility] Palliative Medicine Comment on above: Refill Request Start: 01-19-2022 Refill Cyn Hernandez MD Work Phone: Hematology Comment on above: Refill Request Start: 01-18-2022 End: 01-18-2022 ambulatory Treatment 12 Delfino Rej Work Phone: Hematology Comment on above: 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) Start: 01-17-2022 ambulatory Cyn Hernandez MD Work Phone: [facility] Start: 01-17-2022 Patient encounter procedure Cyn Hernandez MD Work Phone: Hematology Comment on above: Appointment Start: 01-15-2022 Refill Cheryl velázquez APRN.FORM RAISER Work Phone: [facility] Palliative Medicine Comment on above: Refill [...] End: 12-27-2021 Patient encounter procedure Sylvia Mancilla APRN.FORM RAISER Work Phone: [facility] Start: 12-17-2021 Refill Irene Emely 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FORM RAISER Work Phone: [facility] Palliative Medicine Comment on above: Refill Request Start: 12-11-2021 Refill Cyn Hernandez MD Work Phone: Hematology Comment on above: Refill Request Start: 12-07-2021 End: 12-07-2021 Patient encounter procedure Nova Leija 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FORM RAISER Work Phone: Dermatology [place] Comment on above: Acne vulgaris (Prima ry Dx) Start: 12-06-2021 End: 12-06-2021 ambulatory Treatment 5 Delfino Rej Work Phone: Hematology Comment on above: 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) Start: 12-04-2021 Refill Cyn Hernandez MD Work Phone: Hematology Comment on above: Refill Request Start: 12-03-2021 Refill Sylvia Mancilla APRN.FORM RAISER Work Phone: Hematology Comment on above: Refill [...] Cyn Hernandez MD Work Phone: [facility] Start: 11-13-2021 ambulatory Cyn Hernandez MD Work [...] Refill Request Start: 10-31-2021 Refill Irene Han 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FORM RAISER Work Phone: [facility] Comment on above: Refill Request Start: 10-26-2021 End: 10-26-2021 Patient encounter procedure Irene Han APRN.FORM RAISER Work Phone: [facility] Palliative Medicine Comment on above: Encounter [...] End: 10-25-2021 Patient encounter procedure Sylvia Mancilla 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FORM RAISER Work Phone: [facility] Start: 10-17-2021 ambulatory Cyn Hernandez MD Work Phone: Hematology Comment on above: Insurance Start: 10-16-2021 Refill Cheryl velázquez 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FORM RAISER Work Phone: [facility] Comment on [...] Cyn Hernandez MD Work Phone: [facility] Start: 09-22-2021 Patient encounter procedure Cyn Hernandez MD Work Phone: Hematology Comment on above: Appointment Start: 09-22-2021 Telephone encounter Caro Srinivasan RN Hematology Comment on above: Cosmetologist Apprentice - Marianne Beth Follow Up Start: 09-11-2021 Refill Cyn Hernandez MD Work Phone: Hematology Comment on above: Refill Request Start: 09-06-2021 End: 09-06-2021 ambulatory Treatment 3 Delfino Rej Work Phone: Hematology Comment on above: 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) Start: 09-05-2021 End: 09-05-2021 Patient encounter procedure Nova Leija APRN.CNP Work Phone: Dermatology [place] Comment on above: Hidradenitis suppura tiva (Primary Dx); Painful skin lesion; Dermatofibroma of left knee Start: 09-03-2021 Refill Cyn Hernandez MD Work Phone: Hematology Comment on above: Refill Request Start: 09-02-2021 Refill Gurpreet Beth Work Phone: [facility]iative Medicine Comment on above: Refill [...] (HCC) [C81.90] Start: 08-14-2021 Refill Irene Han APRN.FORM RAISER Work Phone: [facility]iative Medicine Comment on above: Refill Request Start: 08-03-2021 Telephone encounter Kristina Pete RN Mobile Services Comment on above: Care Coordination (P all med referral) Start: 07-31-2021 Orders Only Cyn Hernandez MD Work Phone: Hematology Comment on above: Muscle cramps; Nodular sclerosis classical Hodgkin lymphoma (HCC) Start: 07-30-2021 ambulatory Irene Han APRN.FORM RAISER Work Phone: [facility] Start: 07-30-2021 Patient encounter procedure Irene Han 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FORM RAISER Work Phone: [facility] Palliative [facility] Comment on above: Saturday appointmen t Start: 07-28-2021 End: 07-28-2021 Patient encounter procedure Nova Leija 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FORM RAISER Work Phone: Dermatology [place] Comment on above: Hidradenitis suppura tiva (Primary Dx); Painful skin lesion Start: 07-26-2021 End: 07-26-2021 ambulatory Treatment 12 Delfino Rej Work Phone: Hematology Comment on above: 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) Start: 07-24-2021 End: 07-24-[address] DOCTOR CHAVIRA Facility: Start: 2021 Refill Cyn Hernandez MD [...] Refill Request Start: 06-15-2021 Refill Irene Han APRN.FORM RAISER Work Phone: [facility]iative Medicine Comment on above: Refill [...] Cyn Hernandez MD Work Phone: [facility] Start: 06-06-2021 Refill Cyn Hernandez MD Work [...] 05-17-2021 End: 05-17-2021 Patient encounter procedure Irene Emely 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FORM RAISER Work Phone: [facility]iative Medicine Comment on above: Encounter for pallia tive care (Primary Dx); 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); Cancer related pain; Chemotherapy-induced neuropathy (HCC); Muscle cramps; Anxiety Refill Request Start: 05-17-2021 Refill Sylviamariusz Mancilla 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FORM RAISER Work Phone: Hematology Comment on above: Refill Request Start: 05-17-2021 Telephone encounter Zaira DELANEY Work Phone: Hematology Comment on above: Cosmetologist Apprentice - O ther Start: 05-16-2021 ambulatory Cyn Hernandez MD Work Phone: [facility] Start: 05-16-2021 Patient encounter procedure Cyn Hernandez MD Work Phone: Hematology Comment on above: Appointment 05/17 Start: 02-14-2021 End: 02-14-2021 Subsequent hospital visit by physician Arrival Time Radiology Work Phone: Radiology [facility] Comment on above: Hodgkin lymphoma, un specified Hodgkin lymphoma type, unspecified body region (HCC) [C81.90] Start: 02-02-2021 End: 02-02-2021 ambulatory Kylie Johnson Other [facility] Other Start: 02-02-2021 Office outpatient vi sit 15 minutes Kylie Johnson [facility] Start: 09-07-2014 End: 12-26-2015 Patient encounter status Irene Emely 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FORM RAISER Work Phone: [facility] Procedures Date Procedure Procedure Detail Performing Clinician Start: 08-24-2024 ALL T3 FREE Cristine robertson [employer] Work Phone: Start: 08-24-2024 ALL THYROID STIM HORMONE Cristine Sharma [employer] [employer] [facility] Work Phone: Start: 08-24-2024 ALL THYROXINE (T4) Anders Sharma [employer] [facility] Work Phone: Start: 08-24-2024 [facility] GLUCOSE BLOOD Krgeorge Sharma [employer] Work Phone: Start: 08-12-2024 IGP,APTIMA HPV,AGE GDLN Cristine Sharma [employer] Work Phone: Start: 08-12-2024 Microscopic observat ion [Identifier] in Cervix by Cyto stain Cristine Sharma [employer] Work Phone: Start: 08-03-2024 [facility] CBC W AUTO DIFF BLD Generic External Data Provider Start: 07-30-2024 [facility] SPECIMEN VALIDIT Y, URINE Generic External Data Provider Start: 07-30-2024 QUANT TOX PANEL Generic External Data Provider Start: 05-29-2024 Radiologic exam ches t 2 views Kylie Paul JAIMEFORM RAISER Work Phone: Start: 05-29-2024 XR CHEST 2V FRONTAL/LAT Generic External Data Provider Start: 05-04-2024 Radiologic exam ches t 2 views Ruperto Ledezma MD Work Phone: Start: 05-04-2024 XR CHEST 2V FRONTAL/LAT Generic External Data Provider Start: 05-04-2024 [facility] CBC W AUTO DIFF BLD Generic External Data Provider Start: 03-13-2024 [facility] CBC PNL BLD AUTO Ge neric External Data Provider Start: 01-15-2024 Pulmonary ventilatio n & perfusion imaging Sheela Chino ICE HANDLER Work Phone: Start: 01-15-2024 Pulmonary stress testing Kylie Paul JAIMEFORM RAISER Work Phone: Start: 01-15-2024 Noninvasive ear/puls e oximetry multiple deter Kylie Millardaleksandra JAIMEFORM RAISER Work Phone: Start: 01-15-2024 [facility] ARTERIAL BLOOD GASES Generic External Data Provider Start: 01-15-2024 Co diffusing capacity S keyona Millardaleksandra JAIMEFORM RAISER Work Phone: Start: 01-06-2024 [facility] NT-PROBNP SERPL-MCNC Generic External Data Provider Start: 12-20-2023 [facility] BACTERIA BAL AER OBE CULT Generic External Data Provider Start: 12-11-2023 Gluc bld gluc mntr d ev cleared fda spec home use [facility] Provider Start: 11-21-2023 Radiologic exam ches t 2 views 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FORM RAISER Work Phone: Start: 11-20-2023 PNEUMOCOCCAL AB (23 SEROTYPE) Gabrielle Zavala MD Work Phone: Start: 11-20-2023 T cells absolute cd4 count Gabrielle Zavala MD Work Phone: Start: 11-11-2023 [facility] CBC W AUTO DIFF BLD Generic External Data Provider Start: 10-15-2023 Noninvasive ear/puls e oximetry multiple deter Carole Bindu 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FORM RAISER Work Phone: Start: 10-09-2023 Radiologic examinati on [...] exam ches t 2 views Zoila Aguirre 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FORM RAISER Work Phone: Start: 05-20-[address] atten uation skull base mid-thigh Cyn Hernandez MD Work Phone: Start: 05-20-2023 Gluc bld gluc mntr d ev cleared fda spec home use [facility] Provider Start: 03-28-2023 Nitric oxide gas determination Donnan Chan 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FORM RAISER Work Phone: Start: 03-28-2023 Co diffusing capacity L atnan Sukhwinder 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FORM RAISER Work Phone: Start: 01-28-[address] [...] Adult depression scr eening assessment Sylvia Mancilla APRN.FORM RAISER Work Phone: Start: 02-14-[address] atten uation skull base mid-thigh Sylvia Mancilla APRN.FORM RAISER Work Phone: Start: 02-14-2021 Gluc bld gluc mntr d ev cleared fda spec home use [facility] Provider Start: 10-17-2018 Mammography Ellyn novak [employer]MENT Work Phone: Start: 10-21-2017 Microscopic observat ion [Identifier] in Cervix by Cyto stain Sheila Lin [employer] [facility]PARTMENT Work Phone: Plan of Treatment Date Care Activity Detail Author Start: 12-03-2033 Urine microalbumin profile DTaP,Tdap,Td Vaccine (6 - Td or Tdap) [facility] Start: 12-03-2028 Pneumococcal vaccination [facility] Start: 08-13-2027 Screening for malignant neoplasm of cervix [facility] Start: 08-19-2025 End: 08-19-2025 Patient encounter procedure [facility] OB Start: 08-12-2025 Medicare Annual Wellness (AWV) Medicare Annual Wellness (AWV) [facility] Start: 07-06-2025 Hepatitis B surface antibody level LDL Cholesterol [facility] Start: 03-17-2025 End: 03-17-2025 Patient encounter procedure 03/17/2025 11:00 AM EST Office Visit [facility] [place] [facility] [address] [place] [address] Bee Vail MD [address] [facility] [address] [facility] [address] [place], [place] [id number] [facility] [place] Start: 12-10-2024 End: 03-11-2025 CBC W Auto Differential panel - Blood COMPLETE BLOOD COUNT AND DIFFERENTIAL Lab Routine 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) Expected: 12/10/2024 (Approximate), Expires: 03/11/2025 [facility] Comment on above: Expected: 12/10/2024 (Approximate), Expi res: 03/11/2025 Start: 12-10-2024 End: 03-11-2025 Comprehensive metabolic 2000 panel - Serum or Plasma COMPREHENSIVE METABOLIC PANEL Lab Routine 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) Expected: 12/10/2024 (Approximate), Expires: 03/11/2025 [facility] Comment on above: Expected: 12/10/2024 (Approximate), Expi res: 03/11/2025 Start: 12-10-2024 End: 03-11-2025 Erythrocyte sedimentation rate SEDIMENTATION RATE, WESTERGREN Lab Routine 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) Expected: 12/10/2024 (Approximate), Expires: 03/11/2025 [facility] Comment on above: Expected: 12/10/2024 (Approximate), Expi res: 03/11/2025 Start: 12-10-2024 End: 09-02-2025 PET+CT Guidance for localization of tumor of Skull base to mid-thigh-- W [id number] IV [facility] Work Phone: Comment on above: 1 Occurrences starting 11/11/2023 until 12/10/2024 Expected: 12/10/2024 (Approximate), Expires: 09/02/2025 Start: 12-07-2024 End: 12-07-2024 ambulatory 12/07/2024 11:00 AM EDT Visit (SP) Office Hematology/Oncology [address] [place] [address] Patrice Gongora MD [address] [place] [address] 3 month JENNIFER / BRM Hematology/Oncology Comment on above: 3 month JENNIFER / BRM Start: 11-30-2024 End: 11-30-2024 Patient encounter procedure 11/30/2024 8:45 AM EDT Appointment Radiology Pet CT [address] [place] [address] Pet scan in 3 month with lab [address]iology Pet CT Comment on above: Pet scan in 3 month with lab Start: 11-02-2024 End: 02-01-2025 CBC W Auto Differential panel - Blood COMPLETE BLOOD COUNT AND DIFFERENTIAL Lab Routine 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) Expected: 11/02/2024, Expires: 02/01/2025 [facility] Comment on above: Expected: 11/02/2024, Expires: Start: 11-02-2024 End: 02-01-2025 Comprehensive metabolic 2000 panel - Serum or Plasma COMPREHENSIVE METABOLIC PANEL Lab Routine 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) Expected: 11/02/2024, Expires: 02/01/2025 [facility] Comment on above: Expected: 11/02/2024, Expires: Start: 11-02-2024 End: 02-01-2025 Erythrocyte sedimentation rate SEDIMENTATION RATE, WESTERGREN Lab Routine 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) Expected: 11/02/2024, Expires: 02/01/2025 [facility] Comment on above: Expected: 11/02/2024, Expires: Start: 11-02-2024 End: 11-02-2024 ambulatory 11/02/2024 10:00 AM EDT [facility] Palliative Medicine [address] [place] [address] Irene Han, 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FORM RAISER [address] [place] [address] FUP in 3 months Palliative Medicine Comment on above: FUP in 3 months Start: 11-02-2024 End: 11-02-2024 Patient encounter procedure 11/02/2024 10:00 AM EDT Office Visit Palliative Medicine [address] [place] [address] Irene Han, 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FORM RAISER [address] [place] [address] FUP in 3 months Palliative Medicine Comment on above: FUP in 3 months Start: 10-19-2024 Influenza vaccination Influenza Vaccine (#1) [facility] Start: 09-10-2024 End: 09-10-2024 Patient encounter procedure 09/10/2024 9:30 AM EDT Office Visit [facility] [address] [place] [address] Sheila Lin [employer] [facility]PARTMENT [address] [place] [address] [facility] Start: 09-09-2024 End: 09-09-2024 Patient encounter procedure 09/09/2024 10:20 AM EDT Office Visit [facility] [address] [place] [address] Cristine Sharma, END F[employer]ER [employer]MING DEPARTMENT [address] [place] [address] [facility] OB Start: 08-25-2024 Medicare Annual Wellness (AWV) Medicare Annual Wellness (AWV) [facility] Healthcare Start: 08-12-2024 End: 08-12-2025 C-peptide C-peptide Lab Routine Hormone disorder Expected: 08/12/2024 (Approximate), Expires: 08/12/2025 [facility] Healthcare Comment on above: Expected: 08/12/2024 (Approximate), Expi res: 08/12/2025 Start: 08-12-2024 End: 08-12-2025 Cortisol free Cortisol, free Lab Routine Hormone disorder Expected: 08/12/2024 (Approximate), Expires: 08/12/2025 [facility] Comment on above: Expected: 08/12/2024 (Approximate), Expi res: 08/12/2025 Start: 08-12-2024 End: 08-12-2025 Glucose [Mass/volume] in Serum or Plasma Glucose, random Lab Routine Hormone disorder Expected: 08/12/2024 (Approximate), Expires: 08/12/2025 [facility] Healthcare Comment on above: Expected: 08/12/2024 (Approximate), Expi res: 08/12/2025 Start: 08-12-2024 End: 08-12-2025 Insulin, total Insulin, total Lab Routine Hormone disorder Expected: 08/12/2024 (Approximate), Expires: 08/12/2025 [facility] Healthcare Comment on above: Expected: 08/12/2024 (Approximate), Expi res: 08/12/2025 Start: 08-12-2024 End: 10-12-2025 MG Breast - bilateral Screening Bilateral screening mammogram Imaging Routine Breast cancer screening by mammogram Expected: 08/12/2024 (Approximate), Expires: 10/12/2025 [facility] Work Phone: Comment on above: Expected: 08/12/2024 (Approximate), Expi res: 10/12/2025 Start: 08-12-2024 End: 08-12-2025 Serotonin serum Serotonin serum Lab Routine Hormone disorder Expected: 08/12/2024 (Approximate), Expires: 08/12/2025 [facility] Comment on above: Expected: 08/12/2024 (Approximate), Expi res: 08/12/2025 Start: 08-12-2024 End: 08-12-2025 Thyroglobulin Thyroglobulin Lab Routine Hormone disorder Expected: 08/12/2024 (Approximate), Expires: 08/12/2025 [facility] Comment on above: Expected: 08/12/2024 (Approximate), Expi res: 08/12/2025 Start: 08-12-2024 End: 08-12-2025 Thyroglobulin Antibody Thyroglobulin Antibody Lab Routine Hormone disorder Expected: 08/12/2024 (Approximate), Expires: 08/12/2025 [facility] Comment on above: Expected: 08/12/2024 (Approximate), Expi res: 08/12/2025 Start: 08-12-2024 End: 08-12-2025 Thyrotropin [Units/volume] in Serum or Plasma [facility] Healthcare Comment on above: Ordered: 08/12/2024 Expected: 08/12/2024 (Approximate), Expires: 08/12/2025 Start: 08-12-2024 End: 08-12-2024 Patient encounter procedure 08/12/2024 10:00 AM EDT Office Visit [facility] OB [address] [place] [address] Cristine Sharma, SAMANTHA [address] [place] [address] [facility] BCP OB Start: 08-03-2024 End: 08-03-2024 Follow-up encounter 08/03/2024 10:00 AM EDT Visit (SP) Office Hematology/Oncology [address] [place] [place] [address] Ruperto Ledezma MD [address] [place] [place] [address] 3 month follow up Hematology/Oncology Comment on above: 3 month follow up Start: 08-03-2024 End: 08-03-2024 Patient encounter procedure 08/03/2024 9:45 AM EDT Office Visit [facility] [address] [place] [address] [place] [address] 3 month follow up [facility] Comment on above: 3 month follow up Start: 07-30-2024 End: 10-29-2024 QUANTITATIVE TOXICOLOGY PANEL, URINE [facility] Work Phone: Comment on above: Expected: 07/30/2024, Expires: Start: 07-30-2024 End: 07-30-2024 Patient encounter procedure 07/30/2024 10:00 AM EDT Office Visit Palliative Medicine [address] [place] [address] Irene Han, 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FORM RAISER [address] [facility] [place] [address] Return in about 3 months (around 07/24/2024). Palliative Medicine Comment on above: Return in about 3 months (around ). Start: 07-29-2024 End: 07-29-2024 Follow-up encounter 07/29/2024 1:30 PM EDT [facility] Pulmonary Medicine [address] [place] [address] 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 APRN.FORM RAISER [address] [facility] [place] [address] follow up with SARAH Pulmonary Medicine Comment on above: follow up with SARAH Start: 07-21-2024 End: 07-21-2024 Patient encounter procedure 07/21/2024 1:40 PM EDT Office Visit [facility] [address] [place] [id number] Bee Vail MD [address] [facility] [place] [address] NSTEMI (non-ST elevated myocardial infarction) (CMS/HCC) (Primary Dx); Acute systolic heart failure (CMS/HCC); Mixed hyperlipidemia (CMS/HCC); Inappropriate sinus tachycardia (CMS/HCC); Hx of pulmonary embolus [facility] Comment on above: NSTEMI (non-ST elevated myocardial infar ction) (CMS/HCC) (Primary Dx); Acute systolic heart failure (CMS/HCC); Mixed hyperlipidemia (CMS/HCC); Inappropriate sinus tachycardia (CMS/HCC); Hx of pulmonary embolus Start: 06-08-2024 End: 08-08-2025 MG Breast - bilateral Screening Bilateral screening mammogram Imaging Routine Screening mammogram for breast cancer Expected: 06/08/2024, Expires: 08/08/2025 [facility] [employer] Work Phone: Comment on above: Expected: 06/08/2024, Expires: Start: 06-08-2024 End: 06-08-2024 Patient encounter procedure 06/08/2024 8:00 AM EDT Office Visit [facility] [address] [place] [address] Sheila Lin NP [address] [facility] [address] [place] [address] [facility] Start: 05-29-2024 End: 05-29-2024 Patient encounter procedure 05/29/2024 8:30 AM EDT Appointment Radiology [address] [place] [address] [place] [address] Chest Xray Radiology Comment on above: Chest Xray Start: 05-15-2024 End: 05-15-2024 Patient encounter procedure 05/15/2024 9:15 PM EDT Office Visit Neurology [address] [place], [place] [id number] Pulmonary hypertension (HCC) [I27.20] Neurology Comment on above: Pulmonary hypertension (HCC) [I27.20] Start: 05-12-2024 End: 05-12-2024 ambulatory 05/12/2024 8:30 AM EDT [facility] Pulmonary Medicine [address] [facility] [place] [address] 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 APRN.FORM RAISER [address] [place] [address] VV with Kylie SINGH Pulmonary Medicine Comment on above: VV with Kylie SINGH Start: 05-04-2024 End: 05-04-2024 Follow-up encounter 05/04/2024 10:00 AM EDT Visit (SP) Office Hematology/Oncology [address] [place] [place] [address] Ruperto Ledezma MD [address] [place] [address] [place] [address] 6 christiane h follow up after pet scan and lab Hematology/Oncology Comment on above: 6 christiane h follow up after pet scan and la b Start: 04-29-2024 End: 04-29-2024 Patient encounter procedure 04/29/2024 1:00 PM EDT Office Visit Pulmonary Medicine [address] [place], [place] [id number] Pulmonary Hypertension: Please make arrangements for the [...] nodes (HCC) Expected: 04/27/2024 (Approximate), Expires: 05/06/2025 [facility] Work Phone: Comment on above: Expected: 04/27/2024 (Approximate), Expi res: 05/06/2025 Start: 04-27-2024 End: 04-27-2024 Patient encounter procedure Radiology Pet CT Comment on above: Pet scan Start: 04-23-2024 End: 04-23-2024 Patient encounter procedure 04/23/2024 2:00 PM EST Office Visit Palliative Medicine [facility] [place] [address] Irene Han APRN.FORM RAISER [address] [place] [address] FUP in 8 weeks Palliative Medicine Comment on above: FUP in 8 weeks Start: 04-08-2024 End: 04-08-2024 Patient encounter procedure [facility] Comment on above: Arrived Start: 03-20-2024 End: 03-20-2024 Patient encounter procedure 03/20/2024 9:15 PM EST Office Visit Neurology [address] [place] [address] Pulmonary hypertension (HCC) [I27.20] Neurology Comment on above: Pulmonary hypertension (HCC) [I27.20] Start: 03-13-2024 End: 03-13-2024 Admission to same day surgery center 03/13/2024 8:30 AM EST - 03/13/2024 10:00 AM EST Surgery [facility] [address] [place] [address] Glendy Russ, [address] [place] [address] RIGHT HEART CATHETERIZATION INCLUDING MEASUREMENT OF OXYGEN SATURATION AND CARDIAC OUTPUT [facility] Comment on above: RIGHT HEART CATHETERIZATION INCLUDING ME ASUREMENT OF OXYGEN SATURATION AND CARDIAC OUTPUT Start: 03-13-2024 Subsequent hospital visit by physician 03/13/2024 8:30 AM EST Hospital Encounter [facility] [address] [place] [address] [facility] [place] [address] [place] [id number] Pulmonary HTN (HCC) [I27.20] [facility] Comment on above: Pulmonary HTN (HCC) [I27.20] Start: 03-13-2024 End: 03-13-2024 Right heart cath o2 saturation & cardiac output [facility] CATH Start: 03-11-2024 Urine microalbumin profile [facility] Start: 03-11-2024 End: 03-11-2024 Patient encounter procedure 03/11/2024 8:00 AM EST Office Visit [facility] [address] [place] [address] Sheila Lin [employer] [address] [facility] [place] [address] [facility] Start: 03-02-2024 End: 03-02-2024 ambulatory 03/02/2024 4:00 PM EST [facility] [address] [place] [address] Katarzyna Orosco 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FORM RAISER [address] [place] [address] VV with Kat[facility] Pain [facility] Comment on above: VV with Katarzyna Start: 03-02-2024 End: 03-02-2024 Patient encounter procedure 03/02/2024 10:00 AM EST Office Visit [facility] [address] [place] [address] Sheila Lin NP [address] [facility] [address] [facility] Start: 02-27-2024 End: 02-27-2024 Follow-up encounter 02/27/2024 2:30 PM EST [facility] Palliative Medicine [address] [place] [address] Irene Han, 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FORM RAISER [address] [facility] [place] [address] schedule virtual follow up with me in about 2 months Palliative Medicine Comment on above: schedule virtual follow up with me in ab out 2 months Start: 02-27-2024 End: 02-27-2024 Patient encounter procedure 02/27/2024 2:30 PM EST Office Visit Palliative Medicine [address] [place] [address] Irene Han, 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FORM RAISER [address] [place] [address] schedule virtual follow up with me in about 2 months Palliative Medicine Comment on above: schedule virtual follow up with me in ab out 2 months Start: 02-24-2024 End: 02-24-2024 Follow-up encounter 02/24/2024 3:00 PM EST Visit (SP) Office Hematology/Oncology [address] [place] [place] [address] Ruperto Ledezma MD [address] [place] [place] [address] 3 Month Lab Follow Up Hematology/Oncology Comment on above: 3 Month Lab Follow Up Start: 02-24-2024 End: 02-24-2024 Patient encounter procedure 02/24/2024 2:45 PM EST Office Visit [facility] [address] [place] [place] [address] 3 Month Follow Up Labs [facility] Comment on above: 3 Month Follow Up Labs Start: 02-20-2024 End: 02-19-2025 Diphtheria / Tetanus Antibody Panel Diphtheria / Tetanus Antibody Panel Lab Routine Recurrent sinus infections Expected: 02/20/2024 (Approximate), Expires: 02/19/2025 [facility] Comment on above: Expected: 02/20/2024 (Approximate), Expi res: 02/19/2025 Start: 02-20-2024 End: 02-19-2025 Strep pneumoniae antibody serotypes Strep pneumoniae antibody serotypes Lab Routine Pneumonia of right upper lobe due to Streptococcus pneumoniae ([facility]) Expected: 02/20/2024 (Approximate), Expires: 02/19/2025 [facility] Work Phone: Comment on above: Expected: 02/20/2024 (Approximate), Expi res: 02/19/2025 Start: 02-19-2024 Medicare Advantage Annual Wellness Visit Medicare Advantage Annual Wellness Visit [facility] Start: 02-11-2024 End: 02-11-2024 Patient encounter procedure 02/11/2024 9:00 AM EST [facility] Cardiology [address] [place] [id number] [place] [address] [place], [place] [id number] Return in about 2 weeks (around 01/17/2024). Cardiology Comment on above: Return in about 2 weeks (around 01/17/20). Start: 02-10-2024 End: 02-10-2024 ambulatory 02/10/2024 3:00 PM EST Visit (SP) Office Hematology/Oncology [address] [place] [address] [place] [address] Ruperto Ledezma MD [address] [place] [address] [place] [address] 12/18-L/M For Pt To Call Our Office Back Need To R/S This Appt BRM Will Not Be In The Office Hematology/Oncology Comment on above: 12/18-L/M For Pt To Call Our Office Back Need To R/S This Appt BRM Will Not Be In The Office Start: 02-10-2024 End: 02-10-2024 Follow-up encounter 02/10/2024 3:00 PM EST Visit (SP) Office Hematology/Oncology [address] [place] [address] [place] [address] Ruperto Ledezma MD [address] [place] [address] [place] [address] 3 month follow up with lab Hematology/Oncology Comment on above: 3 month follow up with lab Start: 02-10-2024 End: 02-10-2024 Patient encounter procedure [facility] Comment on above: LABS 12/18-L/M For [...] Chemotherapy-induced neuropathy (HCC) Expected: 02/10/2024, Expires: 05/11/2024 [facility] Comment on above: Expected: 02/10/2024, Expires: Start: 02-10-2024 End: 05-11-2024 Comprehensive metabolic 2000 panel - Serum or Plasma COMPREHENSIVE METABOLIC PANEL Lab Routine 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) Other pulmonary embolism without acute cor pulmonale, unspecified chronicity (HCC) Chemotherapy-induced neuropathy (HCC) Expected: 02/10/2024, Expires: 05/11/2024 [facility] Comment on above: Expected: 02/10/2024, Expires: Start: 02-05-2024 End: 02-05-2024 Patient encounter procedure [facility] Comment on above: echo Start: 01-23-2024 Influenza vaccination Influenza Vaccine (#1) [facility] Comment on above: Postponed from 10/20/2023 (Patient Refus ed) Start: 01-21-2024 End: 01-21-2024 Patient encounter procedure 01/21/2024 1:30 PM EST Office Visit Pulmonology [facility] [address] [place] [address] [place] [address] [place] [address] Pulmonary hypertension (HCC) [I27.20] Pulmonology [facility] Comment on above: Pulmonary hypertension (HCC) [I27.20] Start: 01-15-2024 End: 01-15-2024 Patient encounter procedure Pulmonary Medicine Comment on above: Acute hypoxic respiratory failure (HCC) [J96.01] Weight 220 / Order i n EPIC // DX: 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 Start: 01-14-2024 End: 01-14-2024 Patient encounter procedure 01/14/2024 8:30 AM EST Office Visit Pulmonary Medicine [address] [place] [address] 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 APRN.FORM RAISER [address] [place] [address] 5 weeks Pulmonary Medicine Comment on above: 5 weeks Start: 01-08-2024 End: 01-08-2024 Patient encounter procedure 01/08/2024 8:00 AM EST Office Visit Cardiology [address] [place] [address] [facility] [address] [facility] [place] [address] echo Cardiology Comment on above: echo Start: 01-06-2024 End: 01-05-2025 ARTERIAL BLOOD GASES ARTERIAL BLOOD GASES Lab Routine Hypoxia Expected: 01/06/2024, Expires: 01/05/2025 [facility] Work Phone: Comment on above: Expected: 01/06/2024, Expires: Start: 01-06-2024 End: 01-06-2024 Patient encounter procedure 01/06/2024 2:00 PM EST Office Visit Pulmonary Medicine [address] [place] [address] [place] [address] [place] [address] Carver 01/05 at 2pm Pulmonary Medicine Comment on above: add on Per dr Carver 01/05 at 2pm Start: 01-03-2024 End: 01-03-2024 Patient encounter procedure Cardiology Comment on above: Pleural effusion, left [J90]; Pulmonary hypertension (HCC) [I27.20] Pleural effusion, le ft [J90] Start: 12-27-2023 End: 12-27-2023 Patient encounter procedure 12/27/2023 7:45 AM EST Appointment Radiology Pet CT [address] [place] [address] [place] [address] CT CHEST WO IVCON Radiology Pet CT Comment on above: CT CHEST WO IVCON Start: 12-26-2023 End: 12-26-2023 Follow-up encounter 12/26/2023 2:00 PM EST [facility] Palliative Medicine [address] [place] [address] Ierne Han, LORY.FORM RAISER [address] [place] [address] Follow Up Palliative Medicine Comment on above: Follow Up Start: 12-26-2023 End: 12-26-2023 Patient encounter procedure Radiology Comment on above: Pneumonia due to infectious organism, un specified laterality, unspecified part of lung [J18.9] chronic pain/discuss injections Start: 12-23-2023 End: 12-23-2023 ambulatory 12/23/2023 2:30 PM [facility] Palliative Medicine [address] [place] [address] Irene Han, LORY.FORM RAISER [address] [place] [address] VV in apprx. 4 weeks. 12/22 okay per L.T. Palliative Medicine Comment on above: VV in apprx. 4 weeks. 12/22 okay per L.T. Start: 12-18-2023 End: 12-18-2023 Patient encounter procedure 12/18/2023 9:40 AM EDT Office Visit [facility] [address] [phone] Gabrielle Zavala MD [address] [address] [facility] Start: 12-17-2023 End: 12-17-2023 Patient encounter procedure 12/17/2023 8:30 AM EDT Office Visit Pulmonary Medicine [address] [place] [address] 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, LORY.FORM RAISER [address] [place] [address] Follow up Pulmonary Medicine Comment on above: Follow up Start: 12-11-2023 End: 12-11-2023 Patient encounter procedure 12/11/2023 12:00 PM EDT Appointment Radiology Pet CT [address] [place] [address] [place] [address] [address] Pet [address] Comment on above: PET scan Start: 12-04-2023 End: 12-03-2024 Diphtheria / Tetanus Antibody Panel Diphtheria / Tetanus Antibody Panel Lab Routine Recurrent sinus infections Expected: 12/04/2023 (Approximate), Expires: 12/03/2024 [facility] Comment on above: Expected: 12/04/2023 (Approximate), [...] sinus infections Expected: 12/04/2023 (Approximate), Expires: 12/03/2024 [facility] Comment on above: Expected: 12/04/2023 (Approximate), Expi res: 12/03/2024 Start: 12-04-2023 End: 12-04-2023 Patient encounter procedure 12/04/2023 9:20 AM EDT Office Visit [facility] [address] [phone] Gabrielle Zavala MD [address] [address] Arrived [facility] Comment on above: Arrived Start: 11-28-2023 End: 11-27-2024 CT Head WO contrast CT head wo IV contrast Imaging Routine Daily headache Expected: 11/28/2023, Expires: 11/27/2024 [facility] Work Phone: Comment on above: Expected: 11/28/2023, Expires: Start: 11-28-2023 End: 11-05-2024 XR Chest 2 Views XR chest 2 views Imaging Routine Pneumonia due to infectious organism, unspecified laterality, unspecified part of lung Acute respiratory failure, unspecified whether with hypoxia or hypercapnia (CMS/HCC) Restrictive lung disease Expected: 11/28/2023, Expires: 11/05/2024 [facility] Work Phone: Comment on above: Expected: 11/28/2023, Expires: Start: 11-28-2023 End: 11-28-2023 Patient encounter procedure 11/28/2023 10:30 AM EDT Office Visit Pain Management [address] [place] [address] Kodi Pantoja MD [address] [place] [address] chronic pain/discuss injections Pain Management Comment on above: chronic pain/discuss injections Start: 11-28-2023 End: 11-28-2023 Patient encounter procedure [facility] Start: 11-21-2023 End: 11-21-2023 Patient encounter procedure 11/21/2023 8:30 AM EDT Office Visit Pulmonary Medicine [address] [facility] [place] [address] 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 APRN.FORM RAISER [address] [place] [address] pneumonia Pulmonary Medicine Comment on above: pneumonia Start: 11-20-2023 End: 11-19-2024 Absolute CD4 count procedure T-helper cells (CD4) count Lab Routine Pneumonia of right upper lobe due to Streptococcus pneumoniae (CMS/HCC) Recurrent sinus infections Expected: 11/20/2023 (Approximate), Expires: 11/19/2024 [facility] Comment on above: Expected: 11/20/2023 (Approximate), Expi res: 11/19/2024 Start: 11-20-2023 End: 11-19-2024 CBC W Auto Differential panel - Blood CBC and differential Lab Routine Pneumonia of right upper lobe due to Streptococcus pneumoniae (CMS/HCC) Recurrent sinus infections Expected: 11/20/2023 (Approximate), Expires: 11/19/2024 [facility] Comment on above: Expected: 11/20/2023 (Approximate), Expi res: 11/19/2024 Start: 11-20-2023 End: 11-19-2024 Diphtheria / Tetanus Antibody Panel Diphtheria / Tetanus Antibody Panel Lab Routine Pneumonia of right upper lobe due to Streptococcus pneumoniae (CMS/HCC) Recurrent sinus infections Expected: 11/20/2023 (Approximate), Expires: 11/19/2024 [facility] Comment on above: Expected: 11/20/2023 (Approximate), Expi res: 11/19/2024 Start: 11-20-2023 End: 11-19-2024 HIV-1/HIV-2 antigen/antibody combination immunoassay HIV-1 and HIV-2 antibodies Lab Routine Pneumonia of right upper lobe due to Streptococcus pneumoniae (CMS/HCC) Recurrent sinus infections Expected: 11/20/2023 (Approximate), Expires: 11/19/2024 [facility] Comment on above: Expected: 11/20/2023 (Approximate), Expi res: 11/19/2024 Start: 11-20-2023 End: 11-19-2024 IgA [Mass/volume] in Serum or Plasma IgA Lab Routine Pneumonia of right upper lobe due to Streptococcus pneumoniae (CMS/HCC) Recurrent sinus infections Expected: 11/20/2023 (Approximate), Expires: 11/19/2024 [facility] Comment on above: Expected: 11/20/2023 (Approximate), Expi res: 11/19/2024 Start: 11-20-2023 End: 11-19-2024 IgE [Units/volume] in Serum or Plasma IgE Lab Routine Pneumonia of right upper lobe due to Streptococcus pneumoniae (CMS/HCC) Recurrent sinus infections Expected: 11/20/2023 (Approximate), Expires: 11/19/2024 [facility] Comment on above: Expected: 11/20/2023 (Approximate), Expi res: 11/19/2024 Start: 11-20-2023 End: 11-19-2024 IgG [Mass/volume] in Serum or Plasma IgG Lab Routine Pneumonia of right upper lobe due to Streptococcus pneumoniae (CMS/HCC) Recurrent sinus infections Expected: 11/20/2023 (Approximate), Expires: 11/19/2024 [facility] Work Phone: Comment on above: Expected: 11/20/2023 [...] sinus infections Expected: 11/20/2023 (Approximate), Expires: 11/19/2024 [facility] Comment on above: Expected: 11/20/2023 (Approximate), Expi res: 11/19/2024 Start: 11-20-2023 End: 11-20-2023 Patient encounter procedure [facility] Comment on above: Arrived Start: 11-14-2023 End: 11-14-2023 ambulatory Palliative Medicine Comment on above: FU in 4 weeks VV Start: 11-11-2023 End: 11-11-2023 Follow-up encounter Hematology/Oncology Comment on above: 3 month follow up with lab Start: 11-11-2023 End: 11-11-2023 Patient encounter procedure [facility] Comment on above: 3 month follow [...] AM EDT Office Visit Pain Management [address] [place] [address] Katarzyna Orosco, 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FORM RAISER [address] [place] [address] Chronic pain Pain Management Comment on above: Chronic pain Start: 10-28-2023 End: 10-28-2023 Patient encounter procedure [facility]iology Ultrasound Comment on above: Pleural effusion, left [J90] Pleural effusion, le ft [J90]; Pulmonary hypertension (HCC) [I27.20] Start: 10-20-2023 Influenza vaccination [facility] Start: 10-17-2023 End: 10-17-2023 Patient encounter procedure 10/17/2023 10:00 AM EDT Office Visit Palliative Medicine [address] [place] [address] Irene Han, 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FORM RAISER [address] [place] [address] schedule in office with me in about 4 weeks Palliative Medicine Comment on above: schedule in office with me in about 4 we eks Start: 10-15-2023 End: 10-15-2023 Patient encounter procedure 10/15/2023 10:15 AM EDT Procedure Pulmonary Medicine [address] [facility] [place] [address] Pulmonary hypertension (HCC) [I27.20] Pulmonary Medicine Comment on above: Pulmonary hypertension (HCC) [I27.20] Start: 10-09-2023 End: 10-09-2023 Patient encounter procedure 10/09/2023 11:00 AM EDT Office Visit Rheumatology [address] [place] [address] Simin Brandt MD [address] [place] [address] Psoriatic arthritis (HCC) [L40.50] Rheumatology Comment on above: Psoriatic arthritis (HCC) [L40.50] Start: 10-08-2023 End: 10-08-2023 ambulatory 10/08/2023 12:00 PM EDT OT/PT/Speech Visit [facility] Speech Therapy [address] [place] [address] [facility] [address] [place] [address] Hoarseness [R49.0] [facility] Speech Therapy Comment on above: Hoarseness [R49.0] Start: 10-08-2023 End: 10-08-2023 Patient encounter procedure 10/08/2023 8:00 AM EDT Office Visit Rheumatology [address] [place] [address] Simin Brandt MD [address] [place] [address] Psoriatic arthritis (HCC) [L40.50] Rheumatology Comment on above: Psoriatic arthritis (HCC) [L40.50] Start: 10-03-2023 End: 10-03-2023 Patient encounter procedure 10/03/2023 10:00 AM EDT Appointment [facility] Radiology Gastrointestinal [address] [place] [address] XR ESOPHAGRAM [facility] Radiology Gastrointestinal Comment on above: XR ESOPHAGRAM Start: 09-26-2023 End: 09-26-2023 Patient encounter procedure Pulmonary Medicine Comment on above: Return in about 6 months (around ). Pulmonary hypertensi on (HCC) [I27.20] Start: 09-23-2023 End: 09-23-2023 Patient encounter procedure 09/23/2023 11:30 AM EDT Office Visit Cardiology [address] [place] [address] [place] [address] [place] [address] Pleural effusion, left [J90]; Pulmonary hypertension (HCC) [I27.20] Cardiology Comment on above: Pleural effusion, left [J90]; Pulmonary hypertension (HCC) [I27.20] Start: 09-19-2023 End: 09-19-2023 ambulatory 09/19/2023 10:00 AM EDT [facility] Palliative Medicine [address] [place] [address] Irene Han, 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FORM RAISER [address] [place] [address] Please schedule in 5 weeks virtually Palliative Medicine Comment on above: Please schedule in 5 weeks virtually Start: 09-18-2023 End: 09-18-2023 Patient encounter procedure 09/18/2023 9:40 AM EDT Office Visit Otolaryngology [address] [place] [address] Anil Franco PA-C [address] [place] [address] Return for Follow up after MBS, XR esophagram; sooner if clinically indicated.. Otolaryngology Comment on above: Return for Follow up after MBS, XR esoph agram; sooner if clinically indicated.. Start: 09-16-2023 End: 09-16-2023 ambulatory 09/16/2023 2:30 PM EDT [facility] Palliative Medicine [address] [place] [address] Irene Han, 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FORM RAISER [address] [place] [address] Please schedule in 5 weeks virtually Palliative Medicine Comment on above: Please schedule in 5 weeks virtually Start: 08-27-2023 End: 08-27-2023 Patient encounter procedure 08/27/2023 8:00 AM EDT Office Visit Orthopaedics [address] [place], [place] [id number] Sherly Hansen, PA-C [address] [place] [address] right wrist pain Orthopaedics Comment on above: right wrist pain Start: 08-18-2023 Influenza vaccination Influenza Vaccine (#1) [facility] Comment on above: Postponed from 10/19/2022 (Patient Refus ed) Start: 08-12-2023 End: 08-12-2023 Patient encounter procedure General Radiology Comment on above: right wrist pain Return in about 4 we eks (around 08/08/2023) for virtual visit . Start: 08-08-2023 End: 08-08-2023 ambulatory 08/08/2023 10:00 AM EDT [facility] Palliative Medicine [address] [place] [address] Irene Han, 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FORM RAISER [address] [place] [address] Return in about 4 weeks (around 08/08/2023) for virtual visit . Palliative Medicine Comment on above: Return in about 4 weeks (around ) for virtual visit . Start: 08-06-2023 End: 08-06-2023 Patient encounter procedure 08/06/2023 7:00 AM EDT Office Visit Pulmonary Medicine [address] [place] [address] Carole Ruano, 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FORM RAISER [address] [place] [address] Hospital Follow Up for Pneumonia Pulmonary Medicine Comment on above: Hospital Follow Up for Pneumonia Start: 08-05-2023 End: 08-05-2023 ambulatory 08/05/2023 10:15 AM EDT Visit (SP) Office Hematology/Oncology [address] [place] [place] [address] Ruperto Ledezma MD [address] [place] [address] 8 week lab Hematology/Oncology Comment on above: 8 week lab Start: 08-05-2023 End: 08-05-2023 Patient encounter procedure 08/05/2023 10:00 AM EDT Office Visit [facility] [address] [place] [address] [place] [address] 8 week lab [facility] [place] [facility] Comment on above: 8 week lab Start: 07-19-2023 End: 07-19-2023 Patient encounter procedure 07/19/2023 1:20 PM EDT Appointment Radiology [address] [place] [address] XR ESOPHAGRAM Radiology Comment on above: XR ESOPHAGRAM Start: 07-17-2023 End: 07-17-2023 Patient encounter procedure 07/17/2023 9:40 AM EDT Office Visit Otolaryngology [address] [place] [address] Anil Franco PA-C [address] [place] [address] Return for Follow up after MBS, XR esophagram; sooner if clinically indicated.. Otolaryngology Comment on above: Return for Follow up after MBS, XR esoph agram; sooner if clinically indicated.. Start: 07-12-2023 End: 07-12-2023 Patient encounter procedure [facility] Radiology Ultrasound Comment on above: Pleural effusion, left [J90] Pleural effusion, le ft [J90]; Pulmonary hypertension (HCC) [I27.20] Start: 2023 End: 2023 Patient encounter procedure 2023 10:00 AM EDT Office Visit Palliative Medicine [address] [place] [address] Irene Han, LORY.FORM RAISER [address] [place] [address] Return in about 8 weeks (around 2023). Palliative Medicine Comment on above: Return in about 8 weeks (around ). Start: 07-10-2023 End: 07-10-2023 Patient encounter procedure [facility] Radiology Gastrointestinal Comment on above: Dysphagia, unspecified type [R13.10] Start: 07-04-2023 Medicare Annual Wellness (AWV) Medicare Annual Wellness (AWV) [facility] Start: 06-28-2023 End: 06-28-2023 Patient encounter procedure 06/28/2023 11:00 AM EDT Office Visit Pulmonary Medicine [address] [place] [address] [place] [address] [place] [address] Carver Ms. Weller also needs to be added onto Dr. Carver's schedule at [place] on Saturday06/28/23 at 11 am (it is a hospital day for her but adding her on per Dr. Carver). Dr. Carver would also like her put on the cancellation list for a sooner appt. Pulmonary Medicine Comment on above: ok per Dr. Carver Ms. Weller also needs to be added onto Dr. Carver's schedule at [place] on Saturday06/28/23 at 11 am (it is a hospital day for her but adding her on per Dr. Carver). Dr. Carver would also like her put on the cancellation list for a sooner appt. Start: 06-13-2023 End: 06-13-2023 Patient encounter procedure 06/13/2023 11:00 AM EDT Office Visit Pulmonary Medicine [address] [place] [address] Carole Ruano APRN.FORM RAISER [address] [place] [address] follow up for express care Pulmonary Medicine Comment on above: follow up for express care Start: 06-03-2023 End: 06-03-2023 Patient encounter procedure 06/03/2023 8:30 AM EDT Office Visit [facility] [address] [facility] [place] [phone] Bee Vail MD [address] [facility] [place] [address] [facility] Start: 04-16-2023 End: 07-16-2023 CBC W Auto Differential panel - Blood CBC + DIFF Lab Routine 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) Expected: 04/16/2023, Expires: 07/16/2023 [facility] Work Phone: Comment on above: Expected: 04/16/2023, Expires: Start: 04-16-2023 End: 07-16-2023 Comprehensive metabolic 2000 panel - Serum or Plasma COMP METABOLIC PANEL Lab Routine 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) Expected: 04/16/2023, Expires: 07/16/2023 [facility] Work Phone: Comment on above: Expected: 04/16/2023, Expires: 4 Start: 04-16-2023 End: 07-16-2023 Cortisol [Mass/volume] in Serum or Plasma CORTISOL BLD Lab Routine 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) Expected: 04/16/2023, Expires: 07/16/2023 [facility] Work Phone: Comment on above: Expected: 04/16/2023, Expires: 4 Start: 04-16-2023 End: 07-16-2023 Erythrocyte sedimentation rate SED RATE WESTERGREN Lab Routine 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) Expected: 04/16/2023, Expires: 07/16/2023 [facility] Work Phone: Comment on above: Expected: 04/16/2023, Expires: 4 Start: 02-18-2023 Behavioral Health Screening Behavioral Health Screening [facility] Start: 02-18-2023 Depression Assessment Depression Assessment [facility] Start: 01-29-2023 Bacteria identified in Urine by Culture [facility] Start: 01-28-2023 End: 04-29-2023 Cortisol [Mass/volume] in Serum or Plasma [facility] Work Phone: Comment on above: Expected: 01/28/2023, Expires: 4 Start: 10-25-2022 Adult depression screening assessment DEPRESSION SCREENING [facility] Start: 10-21-2022 Screening for malignant neoplasm of cervix [facility] Start: 10-19-2022 Influenza vaccination [facility] Start: 08-01-2022 End: 10-01-2022 Bacteria identified in Unspecified specimen by Respiratory culture RESP CULTURE + STAIN Microbiology Routine Productive cough Expected: 08/01/2022, Expires: 10/01/2022 [facility] Work Phone: Comment on above: Expected: 08/01/2022, Expires: 3 Start: 2022 Mammography [facility] Start: 2022 Screening for malignant neoplasm of breast [facility] Start: 06-14-2022 Adult depression screening assessment DEPRESSION SCREENING [facility] Start: 04-10-2022 End: 06-10-2022 Comprehensive metabolic 2000 panel - Serum or Plasma COMP METABOLIC PANEL Lab Routine 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) Expected: 04/10/2022, Expires: 06/10/2022 [facility] Work Phone: Comment on above: Expected: 04/10/2022, Expires: 3 Start: 04-10-2022 End: 06-10-2022 Thyrotropin [Units/volume] in Serum or Plasma TSH BLD Lab Routine 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) Expected: 04/10/2022, Expires: 06/10/2022 [facility] Work Phone: Comment on above: Expected: 04/10/2022, Expires: 3 Start: 04-10-2022 End: 06-10-2022 Thyroxine (T4) free [Mass/volume] in Serum or Plasma T4 FREE/FREE THYROX Lab Routine 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) Expected: 04/10/2022, Expires: 06/10/2022 [facility] Work Phone: Comment on above: Expected: 04/10/2022, Expires: 3 Start: 03-08-2022 Adult depression screening assessment DEPRESSION SCREENING [facility] Start: 02-18-2022 DEPRESSION ASSESSMENT DEPRESSION ASSESSMENT [facility] Start: 01-25-2022 End: 03-27-2022 PAIN PANEL, UR QUANT [facility] Work Phone: Comment on above: Expected: 01/25/2022, Expires: 3 Start: 01-18-2022 End: 03-20-2022 Comprehensive metabolic 2000 panel - Serum or Plasma COMP METABOLIC PANEL Lab Routine 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) Expected: 01/18/2022, Expires: 03/20/2022 [facility] Work Phone: Comment on above: Expected: 01/18/2022, Expires: 3 Start: 01-18-2022 End: 03-20-2022 Thyrotropin [Units/volume] in Serum or Plasma TSH BLD Lab Routine 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) Expected: 01/18/2022, Expires: 03/20/2022 [facility] Work Phone: Comment on above: Expected: 01/18/2022, Expires: 3 Start: 01-18-2022 End: 03-20-2022 Thyroxine (T4) free [Mass/volume] in Serum or Plasma T4 FREE/FREE THYROX Lab Routine 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) Expected: 01/18/2022, Expires: 03/20/2022 [facility] Work Phone: Comment on above: Expected: 01/18/2022, Expires: 3 Start: 11-15-2021 End: 01-15-2022 Comprehensive metabolic 2000 panel - Serum or Plasma COMP METABOLIC PANEL Lab Routine 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) Expected: 11/15/2021, Expires: 01/15/2022 [facility] Work Phone: Comment on above: Expected: 11/15/2021, Expires: 2 Start: 11-15-2021 End: 01-15-2022 Thyrotropin [Units/volume] in Serum or Plasma TSH BLD Lab Routine 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) Expected: 11/15/2021, Expires: 01/15/2022 [facility] Work Phone: Comment on above: Expected: 11/15/2021, Expires: 2 Start: 11-15-2021 End: 01-15-2022 Thyroxine (T4) free [Mass/volume] in Serum or Plasma T4 FREE/FREE THYROX Lab Routine 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) Expected: 11/15/2021, Expires: 01/15/2022 [facility] Work Phone: Comment on above: Expected: 11/15/2021, Expires: 2 Start: 10-26-2021 End: 12-26-2021 Comprehensive metabolic 2000 panel - Serum or Plasma COMP METABOLIC PANEL Lab Routine 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) Expected: 10/26/2021, Expires: 12/26/2021 [facility] Work Phone: Comment on above: Expected: 10/26/2021, Expires: 2 Start: 10-26-2021 End: 12-26-2021 Thyrotropin [Units/volume] in Serum or Plasma TSH BLD Lab Routine 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) Expected: 10/26/2021, Expires: 12/26/2021 [facility] Work Phone: Comment on above: Expected: 10/26/2021, Expires: 2 Start: 10-26-2021 End: 12-26-2021 Thyroxine (T4) free [Mass/volume] in Serum or Plasma T4 FREE/FREE THYROX Lab Routine 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) Expected: 10/26/2021, Expires: 12/26/2021 [facility] Work Phone: Comment on above: Expected: 10/26/2021, Expires: 2 Start: 10-19-2021 Influenza vaccination [facility] Start: 09-06-2021 End: 11-06-2021 Comprehensive metabolic 2000 panel - Serum or Plasma COMP METABOLIC PANEL Lab Routine 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) Expected: 09/06/2021, Expires: 11/06/2021 [facility] Work Phone: Comment on above: Expected: 09/06/2021, Expires: 2 Start: 09-06-2021 End: 11-06-2021 Thyrotropin [Units/volume] in Serum or Plasma TSH BLD Lab Routine 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) Expected: 09/06/2021, Expires: 11/06/2021 [facility] Work Phone: Comment on above: Expected: 09/06/2021, Expires: 2 Start: 09-06-2021 End: 11-06-2021 Thyroxine (T4) free [Mass/volume] in Serum or Plasma T4 FREE/FREE THYROX Lab Routine 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) Expected: 09/06/2021, Expires: 11/06/2021 [facility] Work Phone: Comment on above: Expected: 09/06/2021, Expires: 2 Start: 02-18-2021 DEPRESSION ASSESSMENT DEPRESSION ASSESSMENT [facility] Start: 10-21-2020 Screening for malignant neoplasm of cervix Pap Smear [facility] Start: 10-19-2020 Influenza vaccination INFLUENZA (#1) [facility] Start: 09-08-2019 HPV TESTING HPV TESTING [facility] Start: 09-08-2019 Screening for malignant neoplasm of cervix HPV Testing [facility] Start: 10-21-2018 Screening for malignant neoplasm of cervix Cervical Cancer Screening [facility] Start: 10-26-2017 PAP TESTING PAP TESTING [facility] Start: 10-26-2017 Screening for malignant neoplasm of cervix [facility] Start: 06-17-2015 PNEUMOCOCCAL (2 - PPSV23 if available, else PCV20) PNEUMOCOCCAL (2 - PPSV23 if available, else PCV20) [facility] Start: 06-17-2015 PNEUMOCOCCAL (2 - PPSV23 or PCV20) PNEUMOCOCCAL (2 - PPSV23 or PCV20) [facility] Start: 08-11-2014 PNEUMOCOCCAL (2 - PPSV23 if available, else PCV20) PNEUMOCOCCAL (2 - PPSV23 if available, else PCV20) [facility] Start: 08-11-2014 PNEUMOCOCCAL (2 - PPSV23 or PCV20) PNEUMOCOCCAL (2 - PPSV23 or PCV20) [facility] Start: 08-11-2014 Pneumococcal vaccination [facility] Start: 2009 HPV Vaccine (1 - Risk 3-dose SCDM series) HPV Vaccine (1 - Risk 3-dose SCDM series) [facility] Start: 07-12-2003 Screening for malignant neoplasm of cervix Pap Smear [facility] Start: 2001 SHINGRIX VACCINE (1 of 2) SHINGRIX VACCINE (1 of 2) [facility] Start: 2001 TWO PNEUMOVAX 5 YEARS APART PRIOR TO AGE 65 (#1) TWO PNEUMOVAX 5 YEARS APART PRIOR TO AGE 65 (#1) [facility] Start: 2000 Annual PCP Team Chronic Disease Visit Annual PCP Team Chronic Disease Visit [facility] Start: 2000 Anxiety Screening Anxiety Screening [facility] Start: 2000 Depression Screening Depression Screening [facility] Start: 1994 COVID-19 VACCINE (1) COVID-19 VACCINE (1) [facility] Start: 07-12-1987 COVID-19 VACCINE (#1) COVID-19 VACCINE (#1) [facility] Start: 01-11-1983 COVID-19 VACCINE (#1) COVID-19 VACCINE (#1) [facility] Start: 1982 HPV Vaccine: Recommended Based On Risk HPV Vaccine: Recommended Based On Risk [facility] Bacteria identified in Unspecified specimen by Respiratory culture RESPIRATORY CULTURE AND STAIN Microbiology Routine Bronchitis Restrictive lung disease Ordered: 06/13/2023 [facility] Work Phone: Comment on above: Ordered: 06/13/2023 Bacteria identified in Unspecified specimen by Respiratory culture RESPIRATORY CULTURE AND STAIN Microbiology Routine Pneumonia due to infectious organism, unspecified laterality, unspecified part of lung Ordered: 11/21/2023 [facility] Comment on above: Ordered: 11/21/2023 End: 03-30-2023 CBC W Auto Differential panel - Blood CBC + DIFF Lab Routine 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 Occurrences starting 03/31/2022 until 03/30/2023 [facility] Work Phone: Comment on above: Every other week for 25 Occurrences star ting 03/31/2022 until 03/30/2023 Comprehensive metabo lic 2000 panel - Serum or Plasma COMP METABOLIC PANEL Lab Routine 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) Ordered: 05/17/2021 [facility] Work Phone: Comment on above: Ordered: 05/17/2021 End: 03-30-2023 Comprehensive metabolic 2000 panel - Serum or Plasma COMP METABOLIC PANEL Lab Routine 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 Occurrences starting 03/31/2022 until 03/30/2023 [facility] Work Phone: Comment on above: Every other week for 25 Occurrences star ting 03/31/2022 until 03/30/2023 COVID & INFLUENZA A/ B & RSV NAAT, ROUTINE COVID & INFLUENZA A/B & RSV NAAT, ROUTINE Microbiology Routine Wheezing 05/31/2023 3:30 PM EDT [facility] Work Phone: End: 12-20-2024 CT Chest WO contrast CT CHEST WO IVCON Radiology Routine Pneumonia due to infectious organism, unspecified laterality, unspecified part of lung 1 Occurrences starting 11/21/2023 until 12/20/2024 [facility] Work Phone: Comment on above: 1 Occurrences starting 11/21/2023 until 12/20/2024 DHEA-sulfate DHEA-sulfate Lab Routine Hormone disorder Ordered: 08/12/2024 [facility] Comment on above: Ordered: 08/12/2024 End: 12-27-2022 Echocardiography ECHO Cardiology Routine Nodular sclerosing Hodgkin's lymphoma, unspecified body region (HCC) BAEZ (dyspnea on exertion) Chronic cough 1 Occurrences starting 12/27/2021 until 12/27/2022 [facility] Work Phone: Comment on above: 1 Occurrences starting 12/27/2021 until 12/27/2022 End: 01-02-2025 Echocardiography ECHO Cardiology Routine Pleural effusion, left Pulmonary hypertension (HCC) Other acute pulmonary embolism, unspecified whether acute cor pulmonale present (HCC) 1 Occurrences starting 01/03/2024 until 01/02/2025 [facility] Work Phone: Comment on above: 1 Occurrences starting 01/03/2024 until 01/02/2025 Estradiol Estradiol Lab Ro utine Hormone disorder Ordered: 08/12/2024 [facility] Comment on above: Ordered: 08/12/2024 Estrone Estrone Lab Rout ine Hormone disorder Ordered: 08/12/2024 [facility] Comment on above: Ordered: 08/12/2024 Ferritin [Mass/volum e] in Serum or Plasma Ferritin Lab Routine Hormone disorder Ordered: 08/12/2024 [facility] Comment on above: Ordered: 08/12/2024 End: 09-01-2023 LUNG DIFFUSION CAPACITY (DLCO) LUNG DIFFUSION CAPACITY (DLCO) PFT Routine Chronic cough 1 Occurrences starting 08/02/2022 until 09/01/2023 [facility] Work Phone: Comment on above: 1 Occurrences starting 08/02/2022 until 09/01/2023 LUNG DIFFUSION CAPAC ITY (DLCO) LUNG DIFFUSION CAPACITY (DLCO) PFT Routine Chronic cough 03/28/2023 1:39 PM [facility] Work Phone: End: 01-23-2025 LUNG DIFFUSION CAPACITY (DLCO) LUNG DIFFUSION CAPACITY (DLCO) PFT Routine Acute hypoxic respiratory failure (HCC) Bronchiectasis without complication (HCC) Restrictive lung disease 1 Occurrences starting 12/25/2023 until 01/23/2025 [facility] Comment on above: 1 Occurrences starting 12/25/2023 until 01/23/2025 LUNG DIFFUSION CAPAC ITY (DLCO) LUNG DIFFUSION CAPACITY (DLCO) PFT Routine Acute hypoxic respiratory failure (HCC) Bronchiectasis without complication (HCC) Restrictive lung disease 01/15/2024 9:13 AM [facility] Work Phone: Microorganism identi fied in Unspecified specimen by Culture AFB CULT + STAIN Microbiology Routine Pneumonia due to infectious organism, unspecified laterality, unspecified part of lung Ordered: 11/21/2023 [facility] Comment on above: Ordered: 11/21/2023 End: 09-01-2023 NITRIC OXIDE, EXHALED NITRIC OXIDE, EXHALED PFT Routine Bronchitis 1 Occurrences starting 08/02/2022 until 09/01/2023 [facility] Work Phone: Comment on above: 1 Occurrences starting 08/02/2022 until 09/01/2023 End: 02-04-2025 NM Lung Ventilation and Perfusion NM LUNG VENT / PERF VQ Radiology Routine Other secondary pulmonary hypertension (HCC) 1 Occurrences starting 01/06/2024 until 02/04/2025 [facility] Work Phone: Comment on above: 1 Occurrences starting 01/06/2024 until 02/04/2025 End: 07-14-2022 NM PET/CT SKULL-THIGH SUBSEQUENT NM PET/CT SKULL-THIGH SUBSEQUENT Radiology Routine Hodgkin lymphoma, unspecified Hodgkin lymphoma type, unspecified body region (HCC) 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) 1 Occurrences starting 06/14/2021 until 07/14/2022 [facility] Work Phone: Comment on above: 1 Occurrences starting 06/14/2021 until 07/14/2022 End: 12-15-2022 NM PET/CT SKULL-THIGH SUBSEQUENT NM PET/CT SKULL-THIGH SUBSEQUENT Radiology Routine Nodular sclerosing Hodgkin's lymphoma, unspecified body region (HCC) 1 Occurrences starting 11/15/2021 until 12/15/2022 [facility] Work Phone: Comment on above: 1 Occurrences starting 11/15/2021 until 12/15/2022 End: 08-17-2023 NM PET/CT SKULL-THIGH SUBSEQUENT NM PET/CT SKULL-THIGH SUBSEQUENT Radiology Routine Nodular sclerosing Hodgkin's lymphoma, unspecified body region (HCC) 1 Occurrences starting 07/18/2022 until 08/17/2023 [facility] Work Phone: Comment on above: 1 Occurrences starting 07/18/2022 until 08/17/2023 End: 09-21-2023 NM PET/CT SKULL-THIGH SUBSEQUENT NM PET/CT SKULL-THIGH SUBSEQUENT Radiology Routine 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) 1 Occurrences starting 08/22/2022 until 09/21/2023 [facility] Work Phone: Comment on above: 1 Occurrences starting 08/22/2022 until 09/21/2023 End: 01-31-2024 NM PET/CT SKULL-THIGH SUBSEQUENT NM PET/CT SKULL-THIGH SUBSEQUENT Radiology Routine 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) 1 Occurrences starting 01/01/2023 until 01/31/2024 [facility] Work Phone: Comment on above: 1 Occurrences starting 01/01/2023 until 01/31/2024 End: 09-04-2024 OXIMETRY WITH AMBULATION OXIMETRY WITH AMBULATION PFT Routine Pulmonary hypertension (HCC) 1 Occurrences starting 08/06/2023 until 09/04/2024 [facility] Work Phone: Comment on above: 1 Occurrences starting 08/06/2023 until 09/04/2024 PET+CT Guidance for localization of tumor of Skull base to mid-thigh-- W [id number] IV NM PET/CT SKULL-THIGH SUBSEQUENT Radiology Routine 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) 12/11/2023 1:28 PM EDT [facility] Work Phone: End: 12-02-2025 PET+CT Guidance for localization of tumor of Skull base to mid-thigh-- W [id number] IV NM PET/CT SKULL-THIGH SUBSEQUENT Radiology Routine 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) 1 Occurrences starting 11/02/2024 until 12/02/2025 [facility] Work Phone: Comment on above: 1 Occurrences starting 11/02/2024 until 12/02/2025 End: 01-20-2025 Polysomnogram POLYSOMNOGRAM (PSG) Procedures Routine Pulmonary hypertension (HCC) 1 Occurrences starting 01/21/2024 until 01/20/2025 [facility] Work Phone: Comment on above: 1 Occurrences starting 01/21/2024 until 01/20/2025 Progesterone Progesterone Lab Routine Hormone disorder Ordered: 08/12/2024 [facility] Comment on above: Ordered: 08/12/2024 QUANT TOX PANEL QUANT TOX PANEL Lab Routine Opioid use agreement exists 07/30/2024 10:26 AM EDT [facility] End: 06-20-2024 RF videography Hypopharynx and Esophagus Views W liquid and paste contrast PO during swallowing XR MODIFIED BARIUM SWALLOW W SPEECH THERAPY Radiology Routine Dysphagia, unspecified type 1 Occurrences starting 05/22/2023 until 06/20/2024 [facility] Work Phone: Comment on above: 1 Occurrences starting 05/22/2023 until 06/20/2024 Sex hormone binding globulin Sex hormone binding globulin Lab Routine Hormone disorder Ordered: 08/12/2024 [facility] Comment on above: Ordered: 08/12/2024 End: 01-23-2025 SIX MINUTE WALK SIX MINUTE WALK PFT Routine Acute hypoxic respiratory failure (HCC) Bronchiectasis without complication (HCC) Restrictive lung disease 1 Occurrences starting 12/25/2023 until 01/23/2025 [facility] Comment on above: 1 Occurrences starting 12/25/2023 until 01/23/2025 SIX MINUTE WALK SIX MINUTE WALK PFT Routine Acute hypoxic respiratory failure (HCC) Bronchiectasis without complication (HCC) Restrictive lung disease 01/15/2024 10:24 AM [facility] Work Phone: SPECIMEN VALIDITY, URINE SPECIME N VALIDITY, URINE Lab Routine Opioid use agreement exists 07/30/2024 10:26 AM EDT [facility] End: 09-01-2023 SPIROMETRY - BASELINE AND POST DILATOR SPIROMETRY - BASELINE AND POST DILATOR PFT Routine Chronic cough 1 Occurrences starting 08/02/2022 until 09/01/2023 [facility] Work Phone: Comment on above: 1 Occurrences starting 08/02/2022 until 09/01/2023 SPIROMETRY - BASELIN E AND POST DILATOR SPIROMETRY - BASELINE AND POST DILATOR PFT Routine Chronic cough 03/28/2023 1:39 PM [facility] Work Phone: End: 01-23-2025 SPIROMETRY WITH DILATOR IF OBSTRUCTED SPIROMETRY WITH DILATOR IF OBSTRUCTED PFT Routine Acute hypoxic respiratory failure (HCC) Bronchiectasis without complication (HCC) Restrictive lung disease 1 Occurrences starting 12/25/2023 until 01/23/2025 [facility] Work Phone: Comment on above: 1 Occurrences starting 12/25/2023 until 01/23/2025 SPIROMETRY WITH DILA TOR IF OBSTRUCTED SPIROMETRY WITH DILATOR IF OBSTRUCTED PFT Routine Acute hypoxic respiratory failure (HCC) Bronchiectasis without complication (HCC) Restrictive lung disease 01/15/2024 9:13 AM [id number] Work Phone: STREPTOCOCCUS PNEUMO ARNAV AB (IGG) (23 SEROTYPES) STREPTOCOCCUS PNEUMONIA AB (IGG) (23 SEROTYPES) Lab Routine Pneumonia of right upper lobe due to Streptococcus pneumoniae (CMS/HCC) Recurrent sinus infections Ordered: 11/20/2023 [facility] Comment on above: Ordered: 11/20/2023 T3, reverse T3, reverse Lab Routine Hormone disorder Ordered: 08/12/2024 [facility] Comment on above: Ordered: 08/12/2024 T4 FREE/FREE THYROX T4 FREE/FREE THYROX Lab Routine 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) Ordered: 05/17/2021 [facility] Work Phone: Comment on above: Ordered: 05/17/2021 TESTOSTERONE, FREE TESTOSTERONE, FREE Lab Routine Hormone disorder Ordered: 08/12/2024 [facility] Comment on above: Ordered: 08/12/2024 Testosterone, free, total Testosterone, free, total Lab Routine Hormone disorder Ordered: 08/12/2024 [facility] Comment on above: Ordered: 08/12/2024 THIN PREP TIS PAP AN D HR HPV DNA THIN PREP TIS PAP AND HR HPV DNA Pathology and Cytology Routine Well woman exam with routine gynecological exam Ordered: 08/12/2024 [facility] Comment on above: Ordered: 08/12/2024 Thyroid peroxidase antibody Thyroid peroxidase antibody Lab Routine Hormone disorder Ordered: 08/12/2024 [facility] Comment on above: Ordered: 08/12/2024 Thyrotropin [Units/volume] in Serum or Plasma TSH BLD Lab Routine 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) Ordered: 05/17/2021 [facility] Work Phone: Comment on above: Ordered: 05/17/2021 End: 03-30-2023 Thyrotropin [Units/volume] in Serum or Plasma TSH BLD Lab Routine 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 Occurrences starting 03/31/2022 until 03/30/2023 [facility] Work Phone: Comment on above: Every other week for 25 Occurrences star ting 03/31/2022 until 03/30/2023 End: 03-30-2023 Thyroxine (T4) free [Mass/volume] in Serum or Plasma T4 FREE/FREE THYROX Lab Routine 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 Occurrences starting 03/31/2022 until 03/30/2023 [facility] Work Phone: Comment on above: Every other week for 25 Occurrences star ting 03/31/2022 until 03/30/2023 Thyroxine (T4) free [Mass/volume] in Serum or Plasma T4, free Lab Routine Hormone disorder Ordered: 08/12/2024 [facility] [employer] Comment on above: Ordered: 08/12/2024 Triiodothyronine (T3 ) Free [Mass/volume] in Serum or Plasma T3, free Lab Routine Hormone disorder Ordered: 08/12/2024 [facility] [employer] Comment on above: Ordered: 08/12/2024 End: 07-13-2024 US Chest US CHEST EFFUSION SURVEY Radiology Routine Pleural effusion, left 1 Occurrences starting 06/14/2023 until 07/13/2024 [facility] Work Phone: Comment on above: 1 Occurrences starting 06/14/2023 until 07/13/2024 US Chest US CHEST EFFUSIO N SURVEY Radiology Routine Pleural effusion, left 01/03/2024 1:40 PM EST [facility] Work Phone: End: 06-06-2025 US Chest US CHEST EFFUSION SURVEY Radiology Routine Pleural effusion 1 Occurrences starting 05/07/2024 until 06/06/2025 [facility] Work Phone: Comment on above: 1 Occurrences starting 05/07/2024 until 06/06/2025 US Chest US CHEST EFFUSIO N SURVEY Radiology Routine Pleural effusion 05/08/2024 8:05 PM EDT [facility] Work Phone: Vitamin D 1,25 dihydroxy Vitamin D 1,25 dihydroxy Lab Routine Hormone disorder Ordered: 08/12/2024 [employer] Comment on above: Ordered: 08/12/2024 End: 05-18-2024 XR Chest PA and Lateral XR CHEST 2V FRONTAL/LAT Radiology Routine Influenza with pneumonia 1 Occurrences starting 04/19/2023 until 05/18/2024 [facility] Work Phone: Comment on above: 1 Occurrences starting 04/19/2023 until 05/18/2024 XR Chest PA and Lateral XR CHEST 2V FRONTAL/LAT Radiology Routine Influenza with pneumonia 04/19/2023 9:38 AM EST [facility] Work Phone: End: 09-04-2024 XR Chest PA and Lateral XR CHEST 2V FRONTAL/LAT Radiology Routine Pneumonia due to infectious organism, unspecified laterality, unspecified part of lung 1 Occurrences starting 08/06/2023 until 09/04/2024 [facility] Comment on above: 1 Occurrences starting 08/06/2023 until 09/04/2024 XR Chest PA and Lateral XR CHEST 2V FRONTAL/LAT Radiology Routine Pleural effusion Ordered: 05/12/2024 [facility] Work Phone: Comment on above: Ordered: 05/12/2024 End: 06-20-2024 XR Esophagus Views W contrast PO XR ESOPHAGRAM Radiology Routine Dysphagia, unspecified type Gastroesophageal reflux disease, unspecified whether esophagitis present 1 Occurrences starting 05/22/2023 until 06/20/2024 [facility] Work Phone: Comment on above: 1 Occurrences starting 05/22/2023 until 06/20/2024 End: 08-28-2024 XR Wrist - right PA and Lateral and Oblique XR WRIST GENERAL 3V PA/LAT/OBL RIGHT Radiology Routine Pain 1 Occurrences starting 07/31/2023 until 08/28/2024 [facility] Work Phone: Comment on above: 1 Occurrences starting 07/31/2023 until 08/28/2024 [facility] Immunizations Immunization Date Immunization Notes Care Provider [facility] 12-20-2023 influenza, seasonal, injectable, preservative free Irene Han 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 Work Phone: [facility] 12-20-2023 influenza virus vacc ine, unspecified formulation Cristine Sharma [employer] Work Phone: [facility] 12-04-2023 pneumococcal polysaccharide vaccine, 23 valent Gabrielle Zavala MD Work Phone: [facility] 12-04-2023 tetanus and diphther ia toxoids, adsorbed, preservative free, for adult use (2 Lf of tetanus toxoid and 2 Lf of diphtheria toxoid) Gabrielle Zavala MD Work Phone: [facility] 12-16-2014 influenza, injectabl e, quadrivalent, preservative free Sylvia Mancilla 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 Work Phone: [facility] 12-16-2014 influenza virus vacc ine, unspecified formulation Charlee Zhao 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 Work Phone: [facility] 06-16-2014 hepatitis A and hepa titis B vaccine Sylvia Mancilla 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[employer] Work Phone: [facility] 06-16-2014 pneumococcal conjuga te vaccine, 13 valent Sylvia Mancilla 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FORM [employer] Work Phone: [facility] 03-11-2014 diphtheria and tetan us toxoids, adsorbed for pediatric use Sylvia Gross 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FORM [employer] Work Phone: [facility] 03-11-2014 haemophilus influenz ae type b vaccine, PRP-OMP conjugate Sylvia Gross 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FORM RA[employer]ER Work Phone: [facility] 03-11-2014 meningococcal polysaccharide vaccine (MPSV4) Sylvia Gross 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FORM RA[employer]ER Work Phone: [facility] 03-11-2014 pneumococcal conjuga te vaccine, 13 valent Sylvia Gross 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FORM RA[employer] Work Phone: [facility] 03-11-2014 poliovirus vaccine, inactivated Sylvia Gross 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FORM RA[employer]ER Work Phone: [facility] 03-11-2014 tetanus toxoid, adsorbed Josi ka Gross 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FORM RA[employer]ER Work Phone: [facility] 03-11-2014 tetanus toxoid, redu jessica diphtheria toxoid, and acellular pertussis vaccine, adsorbed Sylvia Gross 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FORM [employer]ER Work Phone: [facility] 12-21-2013 diphtheria and tetan us toxoids, adsorbed for pediatric use Sylvia Gross 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FORM RA[employer]ER Work Phone: [facility] 12-21-2013 haemophilus influenz ae type b vaccine, PRP-OMP conjugate Sylvia Gross 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FORM [employer]ER Work Phone: [facility] 12-21-2013 hepatitis A and hepa titis B vaccine Sylvia Gross 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FORM [employer]ER Work Phone: [facility] 12-21-2013 influenza, injectabl e, quadrivalent, preservative free Sylvia Gross 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FORM RA[employer]ER Work Phone: [facility] 12-21-2013 pneumococcal conjuga te vaccine, 13 valent Sylvia Gross 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FORM RA[employer]ER Work Phone: [facility] 12-21-2013 poliovirus vaccine, inactivated Sylvia Gross 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FORM RA[employer]ER Work Phone: [facility] 10-14-2013 haemophilus influenz ae type b vaccine, PRP-OMP conjugate Sylvia Gross 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FORM [employer] Work Phone: [facility] 10-14-2013 hepatitis A and hepa titis B vaccine Sylvia Gross 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FORM RAISER Work Phone: [facility] 10-14-2013 Meningococcal Groups C and Y and Haemophilus b Tetanus Toxoid Conjugate Vaccine Sylvia Gross 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FORM [employer] Work Phone: [facility] 10-14-2013 pneumococcal conjuga te vaccine, 13 valent Sylvia Gross 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FORM RA[employer]ER Work Phone: [facility] 10-14-2013 poliovirus vaccine, inactivated Sylvia Gross 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FORM [employer]ER Work Phone: [facility] 10-14-2013 tetanus toxoid, redu jessica diphtheria toxoid, and acellular pertussis vaccine, adsorbed Sylvia Gross 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FORM [employer] Work Phone: [facility] 09-01-2010 hepatitis B vaccine, adult dosage Sylvia Gross 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FORM RA[employer]ER Work Phone: [facility] 04-04-2010 hepatitis B vaccine, adult dosage Sylvia Gross 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FORM [employer]ER Work Phone: [facility] 03-04-2010 hepatitis B vaccine, adult dosage Sylvia Gross 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FORM RAISER Work Phone: [facility] 11-11-2007 hepatitis B vaccine, pediatric or pediatric/adolescent dosage Sylvia Gross 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FORM [employer] Work Phone: [facility] 10-14-2007 hepatitis B vaccine, pediatric or pediatric/adolescent dosage Sylvia Gross 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[facility] Work Phone: [facility] Payers Date Payer Category Payer Medicare (Managed Care) [employer] [id number] 2023 Self-pay [id number] 2020 Medicaid MEDICAID [facility] MEDICAID [id number] 2020-Present [phone] [address] [place] [address] Medicaid [id number] 2020 Medicaid [id number] 2014 Medicare MEDICARE MEDICAR E A AND B [id number] 2014-Present [phone] [address] [address] [place] [address] Medicare [id number] 2014 Medicare [id number] 1982 Unknown [id number]. [id number] 1982 Unknown [id number]. 593 1982 Unknown [id number]. 1258 1982 Unknown [id number] 2.840.1.498011.3.579.2. 1259 1982 Unknown [id number]. 1258 1982 Unknown [id number]. 1259 1982 Unknown [id number]. 1258 1982 Unknown [id number] 2..840.1.443891.3.579.2. 1258 1982 Unknown [id number] 2.840.1.693703.3.579.2. 1258 1982 Unknown [id number] 2.840.1.791267.3.579.2. 1258 1982 Unknown [id number] 2.840.1.267603.3.579.2. 1258 1982 Unknown [id number] 2.840.1.383462.3.579.2. 1258 1982 Unknown [id number] [id number]. 1259 1959 Medicaid [id number] 1959 Medicare [id number] 1959 Medicare [id number] Unknown [id number]. 531 Social History Date Type Detail Facility Start: 01-28-2012 End: 08-23-2022 Tobacco smoking status NHIS Ex-smoker [facility] Start: 01-17-2002 End: 01-18-2012 History of tobacco use Current smoker [facility] Start: 01-17-2002 End: 01-18-2012 History of tobacco use Cigarette Smoker [facility] Start: 01-28-2012 End: 08-23-2022 Tobacco use and exposure Smokeless tobacco non-user [facility] Start: 03-15-2021 End: 09-14-2024 Alcohol intake Current drinker of alcohol (finding) [facility] Start: 03-15-2021 End: 06-08-2024 Alcohol intake [facility] Start: 11-18-2019 History SDOH Alcohol Frequency 2 [facility] Start: 11-18-2019 History SDOH Alcohol Std Drinks 1 [facility] Start: 03-18-2017 History SDOH Alcohol Comment 2 drinks per month [facility] Start: 1980 Sex Assigned At [facility] Start: 01-04-2021 End: 12-27-2021 Exposure to SARS-CoV-2 (event) Not sure [facility] Start: 01-06-2022 End: 01-16-2022 Exposure to SARS-CoV-2 (event) Unable to assess [facility] Start: 08-01-2022 End: 06-08-2024 Tobacco use panel [facility] Start: 01-20-2012 Adult Depression Screening Assessment 0 [facility] Start: 04-17-2021 Gender identity Identifies as female gender (finding) [facility] Start: 04-17-2021 Sexual orientation Heterosexual (angely skinner) [facility] How often to you hav e a drink containing alcohol? Monthly or less [facility] How many standard dr inks containing alcohol do you have on a typical day? 1 or 2 [facility] How often do you hav e 6 or more drinks on 1 occasion? Never [facility] History of tobacco use Passive smoker [facility] Start: 1980 Sex Assigned At Not on file [facility] Has the [employer], or [employer] threatened to shut off services in your home in past 12Mo No [facility] (I/We) worried wheth er (my/our) food would run out before (I/we) got money to buy more. Never true [facility] Start: 03-13-2024 End: 08-03-2024 Alcoholic beverage intake Ex-drinker (finding) [facility] Medical Equipment Procedure Code Equipment Code Equipment Origin al Text Equipment Identifier Dates Port Inf 1 Lum Attach Cath - [id number] Start: 01-31-2012 Comment on above: Description: BARD PO WER PORT Goals Date Patient Goal Desired Activity /State Personal health goal Functional Status Date Assessment Result Facility 06-08-2024 Patient Health [facility] ionnaire 2 item (PHQ-2) [Reported] [facility] 06-08-2024 PHQ-9 quick depressi on assessment panel [Reported.PHQ] [facility] 09-23-2014 Are you deaf, or do you have serious difficulty hearing No 09/23/2014 10:45 AM EDT Anayeli Pulliam LPN No [facility] 09-23-2014 Are you blind, or do you have serious difficulty seeing, even when wearing glasses No 09/23/2014 10:45 AM EDT Anayeli Pulliam LPN No [facility] 09-23-2014 Do you have serious difficulty walking or climbing stairs Yes 09/23/2014 10:45 AM EDT Anayeli Pulliam LPN Yes [facility] 09-23-2014 Do you have difficul ty dressing or bathing No 09/23/2014 10:45 AM EDT Anayeli Pulliam LPN No [facility] 09-23-2014 Because of a physica l, mental, or emotional condition, do you have difficulty doing errands alone such as visiting a physician's office or shopping No 09/23/2014 10:45 AM EDT Anayeli Pulliam LPN No [facility] Mental Status Date Assessment Result Facility 09-23-2014 Because of a physica l, mental, or emotional condition, do you have serious difficulty concentrating, remembering, or making decisions No 09/23/2014 10:45 AM EDAnayeli Kumar LPN No [facility] Clinical Notes 03-15-2017 to 11-09-2024 Telephone Encounter - Mitzi Nash RN - 11/02/2024 2:12 PM EDTTelephone Encounter - Mitzi Nash RN - 11/02/2024 2:12 PM Irene Larry APRN.FORM RAISER - 11/02/2024 10:00 AM EDTPatient Instructions Note Date & Type Note Facility 11-09-2024 Note [place] [facility] - [facility] Subjective Celso Weller is a 44 y.o. year old female patient being seen for a 3 month follow up Echo and labs. Patient complains of fatigue, patient states she was in cardiac rehab and her heart began to race, BAEZ, SOB, leg swelling. Patient Active Problem List Diagnosis NSTEMI (non-ST elevated myocardial infarction) (CMS/HCC) Primary hypertension Nodular lymphocyte predominant Hodgkin lymphoma (CMS/HCC) History of pulmonary embolism Uncomplicated asthma Hemoptysis Chronic hypoxic respiratory failure (CMS/HCC) Pulmonary hypertension (CMS/HCC) New daily persistent headache Acquired hypothyroidism Anxiety Asymptomatic premature menopause Autologous bone marrow transplantation status (CMS/HCC) BMI 33.0-33.9,adult Chemotherapy-induced neuropathy Chronic prescription benzodiazepine use Gastroesophageal reflux disease Insomnia Major depressive disorder, single episode, mild Mild intermittent asthma Neuropathy 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) Opioid use agreement exists Peripheral neuropathy due to chemotherapy Pneumonitis Restrictive lung disease Psoriasis vulgaris Psoriatic arthritis (CMS/HCC) Simple chronic bronchitis (CMS/HCC) Tachycardia Uterine leiomyoma Vaginal high risk human papillomavirus (HPV) DNA test positive Vitamin D deficiency Voice hoarseness Acute systolic heart failure (CMS/HCC) 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 Herpes zoster without complication Inappropriate sinus tachycardia Mixed hyperlipidemia Family History Problem Relation Name Age of Onset Heart attack Maternal Grandfather Heart attack Paternal Grandfather Social History Tobacco Use Smoking status: Former Types: Cigarettes Smokeless tobacco: Never Substance Use Topics Alcohol use: Yes Comment: occasional Drug use: Never JAYCEE Celso is seen in follow-up. I initially saw her 07/20/2024 after admission for NSTEMI during which she underwent PCI of the LAD. She is a 44-year-old woman. Her prior medical history is significant for tachycardia for which she was maintained in the past on atenolol without any etiology for the tachycardia. She says that her heart rate is always around the 100 bpm. In addition she has history of Hodgkin's lymphoma status postchemotherapy and radiation therapy to the chest 10 years ago, last radiation therapy was 2 years ago. In addition she has a history of DVT and pulmonary embolism for which she was treated with anticoagulation and then maintained on maintenance dose Xarelto 10 mg daily. In addition she was previously investigated for possible pulmonary hypertension and valvular regurgitation at the [facility] but right heart catheterization that was performed in February 2024 did not show any significant pulmonary hypertension and her filling pressures were normal. She was transferred from the [facility] on 07/06/2024 due to NSTEMI. She was found to have subtotal occlusion of the LAD to which she underwent drug-eluting stent. In addition she was found to have 50% stenosis in the ramus intermedius vessel. She is currently maintained on dual antiplatelet therapy with aspirin and Plavix. During the hospitalization they had started Xarelto low-dose but she developed hemoptysis and this was stopped. At visit of 07/20/2024 I added spironolactone 12.5 mg once daily due to low ventricular systolic dysfunction EF 40 to 45%, I also added ivabradine 5 mg twice daily for inappropriate sinus tachycardia. Also she was having hemoptysis and I held her Xarelto for a week, DAPT for a week and then asked her to continue clopidogrel and Xarelto after that. Today she is seen in follow-up. She reports that she has been having shortness of breath on exertion NYHA class II-III symptoms with mild lower extremity edema. She continues to be enrolled in cardiac rehab and is doing reasonably well but she notes that her heart rate goes high occasionally. She denies chest pain. She has acceptable exercise tolerance. Her blood pressure is borderline today and her heart rate is 89 bpm. She has been taking Corlanor and has noticed that her heart rate has improved after starting Corlanor. Review of Systems Cardiovascular: Positive for dyspnea on exertion, irregular heartbeat, leg swelling and palpitations. Respiratory: Negative for shortness of breath. Musculoskeletal: Negative for arthritis, falls and neck pain. Gastrointestinal: Negative for diarrhea and dysphagia. Neurological: Negative for light-headedness and loss of balance. Objective Visit Vitals BP 99/66 (BP Location: Right arm, Patient Position: Sitting) Pulse 89 Ht 1.829 m (6') Wt 101 kg (223 lb) LMP (LMP Unknown) SpO2 98% BMI 30.24 kg/m??? OB Status Postmenopausal Smoking Status Former BSA 2.27 m??? Physical Exam (more content not included)... [facility] 11-02-2024 Miscellaneous Notes Pt is jennifer from Dr. Ledezma I placed new orders please review and sign thanks Mitzi Nash RN documented in this encounter [facility] 11-02-2024 Telephone encounter Note Pt is jennifer from Dr. Ledezma I placed new orders please review and sign thanks Mitzi Nash RN [facility] 11-02-2024 History of Present illness Narrative PALLIATIVE MEDICINE PROGRESS NOTE SERVICE DATE: November 02, 2024 IDENTIFICATION AND INTRODUCTION: Celso Weller is a 44 year old female This visit took place Virtually; I have communicated my name and active licensure. The patient's identity and physical location were verified at the time of this visit. The patient or their legal international sales representative has been informed of the risks and benefits of -- and alternatives to -- treatment through a remote evaluation and consents to proceed with the evaluation remotely. CHIEF COMPLAINT: Patient presents with: Follow Up PERTINENT MEDICAL HISTORY: Celso Weller is a 44 yo female with a history of Hodgkin's [...] now under surveillance per Dr. Ledezma. PET/CT since that time have remained without evidence of disease. Palliative care is following for symptom control needs. June 2024: patient diagnosed with NSTEMI at [facility] s/p cardiac cath with drug eluting stent placed in LAC for 99% occlusion. Following with [facility] cardiology Subjective At last visit we discussed other options for pain including Cymbalta increase, Celebrex, and compounded pain cream from [facility]. Had shingles outbreak in August - saw PCP - cleared up. Doing not bad. No new concerns No new or worsening pain. Has annual PET scan coming up in November for oncology follow up Went for f/u ECHO last week. Will see cards next week to go over everything. EF is back up to 55% Cardiac rehab - about 9 more sessions. Last week, breathing was really bad, chest was tight with increased BAEZ. Was put on steroids for this by PCP - has helped. Pain is stable. Still on same regimen. No new or worsening pain. Still taking same dose of Cymbalta - afraid to increase due to fear of side effects. Still taking oxycodone 3 times a day to help with chronic chest pain. No confusion, oversedation, myoclonus, constipation. No concerns. REVIEW OF SYSTEMS: Review of Systems Modified ESAS ([place] Symptom Assessment Scale) Information Provided By: Patient Pain: Mild Nausea: None Loss of Appetite: None Constipation: None Shortness of Breath: Mild Drowsiness: None Tiredness: Mild Depression: None Anxiety: Mild How you feel overall: Good Objective PHYSICAL EXAMINATION: LMP 11/18/2012 Physical Exam [...] labs Creatinine Date Value Ref Range Status 08/03/2024 0.62 0.58 - 0.96 mg/dL Final CrCl cannot [...] APPROPRIATELY filled. No suspicious activity was identified. 11/02/2024 by Irene Han APRN.FORM [employer]ER Urine Screen Lab Results Component Value Date UAMPH Negative 02/24/2021 UBARB2 Negative 02/24/2021 UBENZ Negative 02/24/2021 UQBUPRE <5 07/30/2024 UQNORBUP <20 03/07/2023 UCOC2 Negative 02/24/2021 UQCANN <16 03/07/2023 UOPI Negative 02/24/2021 UOXYC Negative 02/24/2021 UPCP <10 07/30/2024 UTHC Negative 02/24/2021 UETOH <11 02/24/2021 Urine Panel: Lab Results Component Value Date Cannabinoid Quant, Urine <16 03/07/2023 Cannabinoid Quant, Urine <16 02/24/2021 Benzoylecognine Quant, Urine <24 02/24/2021 Benzoylecgonine Quant, Urine <25 07/30/2024 Benzoylecgonine Quant, Urine <24 03/07/2023 6-Acetylmorphine Quant, Urine <5 03/07/2023 6-Acetylmorphine Quant, Urine <5 02/24/2021 6-Monoacetylmorphine Quant, Urine <5 07/30/2024 Amphetamine Quant, Urine <25 07/30/2024 Amphetamine Quant, Urine <5 03/07/2023 Amphetamine Quant, Urine <5 02/24/2021 Methamphetamine Quant, Urine <25 07/30/2024 Methamphetamine Quant, Urine <8 03/07/2023 Methamphetamine Quant, Urine <8 02/24/2021 Buprenorphine Quant, Urine <5 07/30/2024 Buprenorphine Quant, Urine <20 03/07/2023 Buprenorphine Quant, Urine <20 02/24/2021 Norbuprenorphine Quant, Urine <20 03/07/2023 Norbuprenorphine Quant, Urine <20 02/24/2021 Methadone Quant, Urine <25 07/30/2024 Methadone Quant, Urine <16 03/07/2023 Methadone Quant, Urine <16 02/24/2021 EDDP Quant, Urine <25 07/30/2024 EDDP Quant, Urine <6 03/07/2023 EDDP Quant, Urine <6 02/24/2021 Tramadol Quant, Urine <25 03/07/2023 Tramadol Quant, Urine <25 02/24/2021 Desmethyltramadol Quant, Urine <20 03/07/2023 Desmethyltramadol Quant, Urine <20 02/24/2021 O-Desmethyltramadol Quant, Urine <25 07/30/2024 Fentanyl Quant, Urine <1 07/30/2024 Fentanyl Quant, Urine <6 03/07/2023 Fentanyl Quant, Urine <6 02/24/2021 Norfentanyl Quant, Urine <1 07/30/2024 Norfentanyl Quant, Urine <6 03/07/2023 Norfentanyl Quant, Urine <6 02/24/2021 Codeine Quant, Urine <25 07/30/2024 Codeine Quant, Urine <11 03/07/2023 Codeine Quant, Urine <11 02/24/2021 Morphine Quant, Urine <25 07/30/2024 Morphine Quant, Urine <10 03/07/2023 Morphine Quant, Urine <10 02/24/2021 Dihydrocodeine Quant, Urine <5 03/07/2023 Dihydrocodeine Quant, Urine <5 02/24/2021 Hydrocodone Quant, Urine <25 07/30/2024 Hydrocodone Quant, Urine <8 03/07/2023 Hydrocodone Quant, Urine <8 02/24/2021 Oxycodone Quant, Urine 4,599 (H) 07/30/2024 Oxycodone Quant, Urine 2,841 (H) 03/07/2023 Oxycodone Quant, Urine <10 02/24/2021 Hydromorphone Quant, Urine <25 07/30/2024 Hydromorphone Quant, Urine <5 03/07/2023 Hydromorphone Quant, Urine <5 02/24/2021 Oxymorphone Quant, Urine 2,592 (H) 07/30/2024 Oxymorphone Quant, Urine 3,871 (H) 03/07/2023 Oxymorphone Quant, Urine <5 02/24/2021 Creatinine,Ur Pain Ocasio 70.2 02/24/2021 Urine pH, Pain Ocasio 6.3 02/24/2021 Specific Star,Ur Pain Ocasio 1.012 02/24/2021 Oxidants,Ur 46 02/24/2021 Specimen Quality, Ur Pain Ocasio Specimen quality results within acceptable limits. 05/03/2014 Assessment & Plan (Z51.5) Encounter for palliative care (primary encounter diagnosis) - reviewed role of palliative care, contact info, and reasons to call. 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 - current AC: asa 81 mg, Plavix and Xarelto - ECHO showing mildly reduced LVEF 40-45% (repeat in in 10/2024 back up to 55%) - cardiology: Dr Hdz ([facility]) - continue with cardiac rehab (started 07/27/24) (G89.4) Chronic pain syndrome (Z79.891) Opioid use [...] need to be set up at [facility]. She tabled this topic while working on getting SOB worked out. - will continue oxycodone 10 mg TID PRN - no escalation (counseled on use of benzo and opioids together and increased risk of respiratory depression; narcan previously prescribed) - continue APAP 1000 mg TID - continue gabapentin 600 mg TID (self reported, taking 300/600/300 - advised to change to 300/300/600 to help target sleep) managed by PCP- did not tolerate transition to pregabalin - Voltaren ineffective - continue duloxetine 30 mg daily per PCP started 05/2024 (can consider increase to 60 mg daily) - other options she can discuss with PCP include Celebrex - consider topical compounded pain cream - Discussed with Celso that given her 2 year CINDI status of cancer directed therapy and chronic pain syndrome, palliative care would recommend taper from opioids completely. However, in trying to do so previously she has had escalating pain despite other adjuvant medication attempts. Ceslo will discuss with her PCP whether she would be willing to take over prescribing oxycodone at this point. (F43.22) Adjustment disorder with anxious mood - [...] is slowly improving. Less anxiety with stress. Could not tolerate dose titration of lexapro - Cymbalta and Ativan per PCP Medical Decision Making: Problems: Moderate: 2+ stable chronic illnesses Risk: High: Drug therapy requiring intensive monitoring Medical Decision Making Level: 4 - Moderate Some elements copied from my note on 07/30/24, the elements have been updated and all reflect current decision making from today, 11/02/2024. Next Visit: 3 Months via virtual visit Irene Han APRN.PEDRO November 02, 2024 9:35 AM This note may have been partially generated using the [employer] voice recognition system. While every effort was made to correct voice recognition errors, kindly be aware that some errors may occasionally occur. documented in this encounter [facility] 11-02-2024 Telephone encounter Note [facility] 05/12/24 NOV needs to be scheduled Requested Prescriptions Pending Prescriptions Disp Refills ANORO ELLIPTA 62.5-25 mcg/actuation inhaler [Pharmacy Med Name: ANORO ELLIPTA 62.5-25 MCG INH] 60 each 1 Sig: INHALE 1 PUFF ONCE DAILY DIRECTED [facility] 11-02-2024 Miscellaneous Notes [facility] 05/12/24 NOV needs to be scheduled Requested Prescriptions Pending Prescriptions Disp Refills ANORO ELLIPTA 62.5-25 mcg/actuation inhaler [Pharmacy Med Name: ANORO ELLIPTA 62.5-25 MCG INH] 60 each 1 Sig: INHALE 1 PUFF ONCE DAILY DIRECTED documented in this encounter [facility] 10-30-2024 Telephone encounter Note Please see my chart message about appointment next week. Please advise. Thank you, HAMZAH Tolliver, [facility] Budget Engineer [facility] 10-30-2024 Miscellaneous Notes Please see my chart message about appointment next week. Please advise. Thank you, HAMZAH Tolliver, [facility] Budget Engineer documented in this encounter [facility] 10-27-2024 Telephone encounter Note PDMP website checked and validated. All prescriptions have been APPROPRIATELY filled. No suspicious activity was identified. 10/27/2024 by Irene Han APRN.FORM [employer]ISER Rx sent Irene Han APRN.FORM RAISER [facility] 10-27-2024 Miscellaneous Notes PDMP website checked and validated. All prescriptions have been APPROPRIATELY filled. No suspicious activity was identified. 10/27/2024 by Irene Han APRN.FORM RAISER Rx sent Irene Han APRN.FORM RAISER Patient requesting refills as follows: Last ordered 09/28/2024. Next scheduled follow up appointment 11/02/2024. Requested Prescriptions Pending Prescriptions Disp Refills oxyCODONE IR (ROXICODONE) 10 mg tab 90 tablet 0 Sig: Take 1 tablet by mouth every 8 hours as needed for pain for up to 30 days. Kylie Mosher RN October 27, 2024 documented in this encounter [facility] 10-27-2024 Telephone encounter Note Patient requesting refills as follows: Last ordered 09/28/2024. Next scheduled follow up appointment 11/02/2024. Requested Prescriptions Pending Prescriptions Disp Refills oxyCODONE IR (ROXICODONE) 10 mg tab 90 tablet 0 Sig: Take 1 tablet by mouth every 8 hours as needed for pain for up to 30 days. Kylie Mosher RN October 27, 2024 [facility] 09-28-2024 Telephone encounter Note [employer]hart message request from patient for attached. [facility] 09-28-2024 Miscellaneous Notes [employer]hart message request from patient for attached. documented in this encounter [facility] 09-28-2024 Telephone encounter Note Last appointment 07/30 Last ordered: 08/28 (30 days) The following prescription(s) will be transmitted electronically to [facility] upon approval. Patient has been notified. Requested Prescriptions Pending Prescriptions Disp Refills oxyCODONE IR (ROXICODONE) 10 mg tab 90 tablet 0 Sig: Take 1 tablet by mouth every 8 hours as needed for pain for up to 30 days. [facility] 09-28-2024 Miscellaneous Notes Last appointment 07/30 Last ordered: 08/28 (30 days) The following prescription(s) will be transmitted electronically to [facility] upon approval. Patient has been notified. Requested Prescriptions Pending Prescriptions Disp Refills oxyCODONE IR (ROXICODONE) 10 mg tab 90 tablet 0 Sig: Take 1 tablet by mouth every 8 hours as needed for pain for up to 30 days. documented in this encounter [facility] 09-14-2024 History of Present illness Narrative Images from the original note were not included. Subjective Patient ID: Celso Weller is a 44 y.o. female who presents for possible shingles. Urgent visit for a rash Per phone encounter Patient concerned for possible shingles on the back of her right arm. Rash started last week. Itches and husain, not extremely painful. Scheduled 09/14 Started with sxs last week Saturday Thought it was related to insect bites But the bites went away but this patch did not go away Located on the rt arm posterior with one into the axillay Some burning and itching Currently no pain Current Outpatient Medications on File Prior to Visit Medication Sig Dispense Refill albuterol HFA (ProAir HFA) 90 mcg/act inhaler Inhale 2 puffs every 4 (four) hours if needed for wheezing or shortness of breath 8.5 g 11 baclofen (Lioresal) 5 MG tablet Take 5 mg by mouth in the morning and 5 mg in the evening and 5 mg before bedtime. (Patient taking differently: Take 5 mg by mouth if needed) clopidogrel (Plavix) 75 MG tablet Take 75 mg by mouth Daily dexlansoprazole (Dexilant) [address] capsule Take 1 capsule (30 mg) by mouth Daily Do not crush or chew. 90 capsule 2 DULoxetine (Cymbalta) [address] capsule TAKE 1 CAPSULE (30 MG) BY MOUTH DAILY DO NOT CRUSH OR CHEW. 90 capsule 3 estradiol (Estrace) 0.1 MG/GM vaginal cream 2g vaginal daily for 2 weeks, then 2 times weekly following initial 2 weeks 42.5 g 0 fluocinonide (Lidex) 0.05 % cream APPLY TO AFFECTED AREA TOPICALLY IN THE MORNING AND AT BEDTIME 60 g 0 gabapentin (Neurontin) 300 MG [...] every 6 (six) hours 180 mL 3 Ivabradine HCl 5 MG tablet Take 5 mg by mouth in the morning and 5 mg in the evening. ketoconazole (NIZOral) 2 % cream Apply 1 application topically 1 (one) time each day at the same time levothyroxine (Synthroid, Levoxyl) 75 MCG tablet Take 1 tablet (75 mcg) by mouth in the morning. Take before meals. 90 tablet 3 lisinopril 5 MG tablet Take 5 mg by mouth Daily LORazepam (Ativan) 0.5 MG tablet Take 1 tablet (0.5 mg) by mouth 4 (four) times a day as needed for anxiety 120 tablet 2 metoprolol succinate XL (Toprol-XL) 100 MG 24 hr tablet Take 100 mg by mouth Daily Do not crush or chew. oxyCODONE (Roxicodone) 10 MG immediate release tablet Take 10 mg by mouth every 4 (four) hours if needed Probiotic Product (Probiotic Daily) capsule 1 (one) time each day at the same time prochlorperazine (Compazine) 10 MG tablet Take 1 tablet (10 mg) by mouth every 6 (six) hours if needed for nausea 30 tablet 2 rosuvastatin (Crestor) 20 MG tablet Take 20 mg by mouth Daily spironolactone (Aldactone) 25 MG tablet Take 12.5 mg by mouth in the morning. traZODone (Desyrel) 150 MG tablet Take 1 tablet (150 mg) by mouth as needed at bedtime for sleep 90 tablet 3 [DISCONTINUED] aspirin 81 MG EC tablet Take 81 mg by mouth Daily No current facility-administered medications on file prior to visit. Allergies Allergen Reactions Chlorhexidine Unknown and Itching Other Reaction(s): Unknown Severe skin irritation. Had used for central line care Other reaction(s): Unknown Other reaction(s): Unknown Severe skin irritation. Had used for central line care Sulfa Antibiotics Unknown and Rash Other reaction(s): Unknown I have reviewed and reconciled the history and medication list with the patient today. Review of Systems All other systems reviewed and are negative. Visit Vitals BP 90/60 Pulse 75 Ht 6' SpO2 96% BMI 30.79 kg/m Smoking Status Former BSA 2.29 m Objective Physical Exam Constitutional: General: She [...] edema. Left lower leg: No edema. Skin: Comments: Grouped cluster of vesicles and papules on the rt posterior arm and one lesion in the axilla All in dermatomal patterns Neurological: General: No focal deficit present. Mental Status: She is alert. Psychiatric: Mood and Affect: Mood normal. Behavior: Behavior normal. Thought Content: Thought content normal. Judgment: Judgment normal. Assessment/Plan 1. Herpes zoster without complication (Primary) Sxs and exam consistent with shingles On gabapentin already Out of window for rx but given immunosuppression will treat - valACYclovir (Valtrex) 1 g tablet; Take 1 tablet (1,000 mg) by mouth in the morning and 1 tablet (1,000 mg) in the evening and 1 tablet (1,000 mg) before bedtime. Do all this for 7 days. Dispense: 21 tablet; Refill: 0 Discussed risk of transmission We will continue to follow up with this patient on a continued food counselor basis to monitor and treat the above listed problems as well as their other chronic illnesses as part of a longitudinal care plan documented in this encounter [facility] 09-09-2024 History of Present illness Narrative Reason for Appointment: Patient ID: Celso Weller is a 44 y.o. female who presents for No chief complaint on file. Patient presents today via telephone call for a telehealth appointment. Patients Phone #: [phone] (mobile) Date: 09/09/2024 Time: 1:10 PM of the visit Platform Used: Audio call performed via in house telephone system. Location of Patient and Provider: Patient at home, provider at clinic Consent for Telehealth: Patient provided verbal consent to conduct the visit virtually via audio only phone call Current Medications: has a current medication list which includes the following prescription(s): aspirin, baclofen, clopidogrel, dexlansoprazole, duloxetine, estradiol, fluocinonide, gabapentin, ipratropium, ipratropium-albuterol, ivabradine hcl, ketoconazole, levothyroxine, lisinopril, lorazepam, metoprolol succinate xl, oxycodone, probiotic daily, prochlorperazine, rosuvastatin, spironolactone, and trazodone. Medical History: Active Ambulatory Problems Diagnosis Date Noted Asthma ([facility]) 08/13/2022 Acquired hypothyroidism 08/23/2022 Anxiety 08/23/2022 Gastroesophageal reflux disease 08/23/2022 Hodgkin lymphoma ([facility]) 08/23/2022 Insomnia 08/23/2022 Major depressive disorder, single episode, mild 08/23/2022 Mild intermittent asthma ([facility]) 08/23/2022 Psoriasis 08/23/2022 Restrictive lung disease 08/23/2022 Tachycardia 08/23/2022 Vitamin D deficiency 08/23/2022 Voice hoarseness 08/23/2022 Neuropathy 06/03/2023 Chronic prescription benzodiazepine use 10/10/2023 Palliative care status 04/01/2024 Acute systolic heart failure ([facility]) 07/21/2024 NSTEMI (non-ST elevated myocardial infarction) ([facility]) 07/21/2024 Hx of pulmonary embolus 07/21/2024 Inappropriate sinus tachycardia ([facility]) 07/21/2024 Mixed hyperlipidemia 07/21/2024 Resolved Ambulatory Problems Diagnosis Date Noted No Resolved Ambulatory Problems Past Medical History: Diagnosis Date Arthritis ASCUS with positive high risk HPV cervical Disease of thyroid gland JOAN (generalized anxiety disorder) GERD (gastroesophageal reflux disease) History of pulmonary embolism Menopause Family History Problem Relation Name Age of Onset Multiple sclerosis Mother Veronica Hypertension Mother Veronica Social History Tobacco Use Smoking status: Former Types: Cigarettes Smokeless tobacco: Never Substance Use Topics Alcohol use: Yes Drug use: Never Past Surgical History: Procedure Laterality Date CORONARY [...] PERCUTANEOUS PLACEMENT 03/22/2017 US GUIDED PERCUTANEOUS PLACEMENT Allergies Allergen Reactions Chlorhexidine Unknown and Itching Other Reaction(s): Unknown Severe skin irritation. Had used for central line care Other reaction(s): Unknown Other reaction(s): Unknown Severe skin irritation. Had used for central line care Sulfa Antibiotics Unknown and Rash Other reaction(s): Unknown Vitals: Estimated body mass index is 30.79 kg/m as calculated from the following: Height as of 07/21/24: 6'. Weight as of 07/21/24: 227 lb. BP: No LMP recorded. Assessment/Plan Encounter Diagnoses Name Primary? Hormone disorder Yes Symptomatic states associated with artificial menopause Discussed extensive labs completed since last visit. Patient reports that she did obtain the estrace cream but has not yet begun using this. We reviewed use today and she verbalizes understanding. Patient is menopausal at this time and will defer medication treatment but will reach out to our office should she decide to pursue this further. We reviewed the pathology results from recent Pap and all questions are answered. She will schedule her for her next yearly examination. Today's telehealth visit consisted of spending 10 minutes talking to patient on the phone. Documented by Cristine Sharma NP on behalf of: Cristine Sharma NP documented in this encounter [facility] 08-31-2024 Telephone encounter Note KENN 05/12/24 Follow up in 4 weeks NOV Needs to be scheduled Requested Prescriptions Pending Prescriptions Disp Refills ANORO ELLIPTA 62.5-25 mcg/actuation inhaler [Pharmacy Med Name: ANORO ELLIPTA 62.5-25 MCG INH] 60 each 1 Sig: INHALE 1 PUFF ONCE DAILY DIRECTED [facility] 08-31-2024 Miscellaneous Notes KENN 05/12/24 Follow up in 4 weeks NOV Needs to be scheduled Requested Prescriptions Pending Prescriptions Disp Refills ANORO ELLIPTA 62.5-25 mcg/actuation inhaler [Pharmacy Med Name: ANORO ELLIPTA 62.5-25 MCG INH] 60 each 1 Sig: INHALE 1 PUFF ONCE DAILY DIRECTED documented in this encounter [facility] 08-13-2024 Telephone encounter Note Oarrs reviewed Rx sent [facility] 08-13-2024 Miscellaneous Notes Oarrs reviewed Rx sent documented in this encounter [facility] 08-12-2024 History of Present illness Narrative Reason for Appointment: Patient ID: Celso Weller is a 44 y.o. female who [...] Active Ambulatory Problems Diagnosis Date Noted Asthma ([facility]) 08/13/2022 Acquired hypothyroidism 08/23/2022 Anxiety 08/23/2022 Gastroesophageal reflux disease 08/23/2022 Hodgkin lymphoma ([facility]) 08/23/2022 Insomnia 08/23/2022 Major depressive disorder, single episode, mild 08/23/2022 Mild intermittent asthma ([facility]) 08/23/2022 Psoriasis 08/23/2022 Restrictive lung disease 08/23/2022 Tachycardia 08/23/2022 Vitamin D deficiency 08/23/2022 Voice hoarseness 08/23/2022 Neuropathy 06/03/2023 Chronic prescription benzodiazepine use 10/10/2023 Palliative care status 04/01/2024 Acute systolic heart failure ([facility]) 07/21/2024 NSTEMI (non-ST elevated myocardial infarction) ([facility]) 07/21/2024 Hx of pulmonary embolus 07/21/2024 Inappropriate sinus tachycardia ([facility]) 07/21/2024 Mixed hyperlipidemia 07/21/2024 Resolved Ambulatory [...] NSTEMI (non-ST elevated myocardial infarction) ([facility]) 07/21/2024 Social History Tobacco Use Smoking [...] polyp vs non thrombosed hemorrhoid. Will send referral for general surgical consult and trial tucks pads. [...] nursing note reviewed. Exam conducted with a creel hand present. Vitals: Estimated body mass index is 30.79 kg/m as calculated from the following: Height as [...] annual unless needed otherwise. Documented by Cristine Sharma NP on behalf of: Cristine Sharma NP documented in this encounter [facility] 07-30-2024 Instructions Irene Han APRN.CNP - 07/30/2024 10:22 AM EDT - Cymbalta can go up to 60 mg if you don't feel pain is well controlled in the next 1-2 months. - Other options for pain: - Celebrex: would suggest getting clearance from your computer equipment installer about this - compounded pain cream from [facility]. I can send a prescription if you are interested in trying this. documented in this encounter [facility] 07-30-2024 History of Present illness Narrative PALLIATIVE MEDICINE PROGRESS NOTE SERVICE DATE: 07/30/2024 CHIEF COMPLAINT: follow up PERTINENT MEDICAL HISTORY: [...] is following for symptom control needs. Subjective Primary care changed antidepressant regimen to Cymbalta on 06/08/24. Has followed up with pulm - ordered CPAP due to sleep apnea. Admitted 07/06/24 due to left hand numbness and substernal chest pain. Work up showed NSTEMI and she underwent cardiac cath and drug eluting stent placed in LAC for 99% occlusion. Developed hemoptysis when started on Xarelto, this was held. ECHO showing mildly reduced LVEF 40-45% Had f/u with cardiology at [facility] on 07/20/24 - added spirinolactone for short term in the setting of mildly reduced LVEF - could improve after revascularization. Feeling ok. Presents today alone. Reports her breathing is a bit better since heart cath and stent. States she is no longer using nebs or rescue inhaler. Her voice is also not as raspy as a result. She continues to use Anoro and oxygen at night. Doesn't like the CPAP. Feels rested in the morning. Heart rate is better controlled without nebs and with new medication regimen per cards. Started cardiac rehab this week. Plans to attend 36 sessions (currently 3 days per week) Pain is about the same. 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 She was started on cymbalta as above and is taking 30 mg daily. States no side effects. This has been better managing her mood without issues with day time grogginess. Not sure if it has helped her pain thus far. States about a month after starting is when she had her heart attack and that further complicated things. She continues to use flexeril PRN and oxycodone 3 times during the day. No confusion, oversedation, myoclonus, constipation. Modified ESAS ([place] Symptom Assessment Scale) Information Provided By: Patient Pain: Moderate Nausea: None Loss of Appetite: None Constipation: None Shortness of Breath: Mild Drowsiness: None Tiredness: None Depression: None Anxiety: Mild How you feel overall: Good Objective ECOG PERFORMANCE STATUS: 1- Restricted in physically strenuous activity. Carries out light duty. PHYSICAL EXAMINATION: Vital signs: BP 100/69 Pulse 77 Temp 36.2 C (97.2 F) (Temporal) Resp 16 LMP 11/18/2012 SpO2 96% Last 1 Encounter Temp Readings: Date: Temp: Temp Src: 05/04/2024 36.6 C (97.8 F) Temporal Last 1 Encounter Resp Readings: Date: Resp: 05/04/2024 18 Last 1 Encounter Pulse Readings: Date: Pulse: 05/04/2024 97 Last 1 Encounter BP Readings: Date: BP: 05/04/2024 115/74 General Appearance: No apparent distress Skin: No jaundice and No rash Lungs: unlabored effort, no conversational dyspnea. Musculoskeletal: No edema and No gross deformity Neuro: Alert and oriented to time place and person and gait normal Psych: Well groomed, Affect congruent with mood, and Good eye contact DATA: Diagnostic tests reviewed for today's visit: Most recent labs and imaging results. CrCl cannot be calculated (Unknown ideal weight.). [...] APPROPRIATELY filled. No suspicious activity was identified. 07/30/2024 by Irene Han APRN.FORM RAISER Urine Screen Lab Results Component Value Date [...] Urine pH, Pain Ocasio 6.3 02/24/2021 Specific Star,Ur Pain Ocasio 1.012 02/24/2021 Oxidants,Ur 46 02/24/2021 Specimen Quality, Ur Pain Ocasio Specimen quality results within acceptable limits. 05/03/2014 Assessment & Plan (Z51.5) Encounter for palliative care (primary encounter diagnosis) - reviewed role of palliative care, contact info, and reasons to call. 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 - current AC: asa 81 mg, Plavix and Xarelto - ECHO showing mildly reduced LVEF 40-45% (plan to repeat in 3 months) - cardiology: Dr Hdz ([facility]) - continue with cardiac rehab (started 07/27/24) (G89.4) Chronic pain syndrome (Z79.891) Opioid use [...] need to be set up at [facility]. She is tabling this topic while working on getting SOB worked out. - will continue oxycodone 10 mg TID PRN - no escalation (counseled on use of benzo and opioids together and increased risk of respiratory depression; narcan previously prescribed) - continue APAP 1000 mg TID - continue gabapentin 600 mg TID (self reported, taking 300/600/300 - advised to change to 300/300/600 to help target sleep) managed by PCP- did not tolerate transition to pregabalin - Voltaren ineffective - continue duloxetine 30 mg daily per PCP started 05/2024 (can consider increase to 60 mg daily) - other options she can discuss with PCP include Celebrex - consider topical compounded pain cream (F43.22) Adjustment disorder with anxious mood - [...] is slowly improving. Less anxiety with stress. Could not tolerate dose titration of lexapro - Cymbalta and Ativan per PCP Medical Decision Making: Problems: Moderate: 2+ stable chronic illnesses Risk: High: Drug therapy requiring intensive monitoring Medical Decision Making Level: 4 - Moderate Some elements copied from my note on 04/23/24, the elements have been updated and all reflect current decision making from today, 07/30/2024. Next Visit: 3 Months via a virtual visit Irene Han APRN.CNP July 30, 2024 8:03 AM This note may have been partially generated using the [employer] voice recognition system. While every effort was made to correct voice recognition errors, kindly be aware that some errors may occasionally occur. documented in this encounter [facility] 07-30-2024 History of Present illness Narrative PATIENT NAME: Celso Weller DATE: 08/03/2024 PRIMARY CARE PHYSICIAN: Bee Vail MD OTHER PHYSICIANS: Dr. Cyn Hernandez; Dr. Gurpreet Unger; Irene Han CNP ([facility] Pall [facility]), Dr. Jaen Del Valle ([facility] Rad Onc), Dr. Jani Carver ([facility] Pulmonary), Dr Radha Gamez ([facility] Dermatology), Dr. Temo Hdz ([facility] [place]) Portions of this encounter note have been copied from the note from 05/04/2024 and has been updated where appropriate, and reflect my current medical decision making from today. CC: This is a 44 year old female with recurrent Hodgkin's disease, seen for scheduled follow-up. INTERIM HISTORY: Since the patient's last visit here she apparently suffered an acute TN on 07/05/2024. She was hospitalized at [facility] in [place]. She underwent stent placement x 2 which is successful. Since then she has remained clinically stable. She is currently on new medications including Plavix plus several blood pressure and cardiac medications. Overall she feels much better. Chronic shortness of breath improved. No recent fevers, night sweats, or weight loss. No new areas of pain. MEDICATIONS: clopidogrel (PLAVIX) 75 mg tablet Take 1 tablet by mouth once daily. metoprolol succinate ER (TOPROL XL) 100 mg Take 1 tablet by mouth once daily. lisinopril (ZESTRIL) 5 mg tablet Take 1 tablet by mouth once daily. ivabradine (CORLANOR) 5 mg tablet Take 5 mg by mouth two times a day. spironolactone (ALDACTONE) 25 mg tablet Take 0.5 tablets by mouth once daily. rosuvastatin (CRESTOR) 20 mg tablet Take 1 tablet by mouth once daily. DULoxetine (CYMBALTA) 30 mg capsule Take 1 capsule by mouth once daily. Dexlansoprazole (DEXILANT) 30 mg CpDM Take 1 capsule by mouth once daily. oxyCODONE IR (ROXICODONE) 10 mg tab Take 1 tablet by mouth every 8 hours as needed for pain for up to 30 days. cyclobenzaprine (FLEXERIL) 10 mg tablet TAKE 1 TABLET BY MOUTH THREE TIMES A DAY NEEDED FOR MUSCLE SPASM ANORO ELLIPTA 62.5-25 mcg/actuation inhaler INHALE 1 INHALATION INSTRUCTED ONCE DAILY. Nebulizer Accessories kit 1 kit every 6 months as needed. sodium chloride (NEBUSAL) 3 % nebulizer solution Use 4 mL via nebulizer two times a day. gabapentin (NEURONTIN) 300 mg capsule Take 2 [...] no.41/Bifidobact no.7 (PROBIOTIC-10 ORAL) Take by mouth. ALLERGIES: Chlorhexidine and Sulfa (Sulfonamide Antibiotics) PAST MEDICAL HISTORY: PAST MEDICAL HISTORY Diagnosis Date ASCUS favor dysplasia 09/2014 for colpo Dyspareunia Fibroid 04/02/2017 Hodgkin lymphoma (HCC) 01/16/2012 stage IIIB, Nodular sclerosis classical Hodgkin lymphoma Menorrhagia 04/02/2017 NSTEMI (non-ST elevated myocardial infarction) ([facility]) 07/30/2024 PE (pulmonary embolism) Found incidentally on staging [...] SYSTEMS: As above PHYSICAL EXAM: Vitals: BP 105/71 Pulse 89 Temp 36.5 C (97.7 F) (Temporal) Resp 16 LMP 11/18/2012 SpO2 95% General appearance: Well appearing, alert, in no [...] Normal. LABORATORY DATA: Hemoglobin (g/dL) Date Value 08/03/2024 14.3 04/05/2021 15.3 Hematocrit (%) Date Value 08/03/2024 43.6 04/05/2021 45.8 WBC (k/uL) Date Value 08/03/2024 7.35 04/05/2021 8.31 Platelet Count (k/uL) Date Value 08/03/2024 278 04/05/2021 277 RADIOLOGY/OTHER STUDIES: 05/04/2024 Chest x-ray [...] FDG avid neoplastic process. 04/02/2023 Chest x-ray ([facility]) Airspace opacities in the medial [...] At this time will continue close observation. Labs and restaging PET scan November 2024, then return for follow-up. 2. Autologous bone marrow transplantation status (HCC) [...] pulmonary embolism May 2012. On anticoagulation with Xarelto, with plans to take indefinitely. 5. Chemotherapy-induced neuropathy (HCC) - ICD9: 357.6, [...] current medications. Continue management per PCP. 9. Heart disease Status post acute TN 07/05/2024. Status post coronary artery stent placement x 2 at [facility]. Currently stable. Continue management per PCP/cardiology. 10. Chronic fatigue, anxiety and depression The patient has a long history of chronic fatigue, most likely related to her underlying disease, extensive prior treatment, and multiple medications. As a result she has secondary anxiety and depression. Continue management per PCP/[facility] palliative medicine. Ruperto Ledezma MD documented in this encounter [facility] 07-29-2024 Telephone encounter Note PDMP website checked and validated. All prescriptions have been APPROPRIATELY filled. No suspicious activity was identified. 07/29/2024 by Irene Han APRN.FORM RAISER Rx sent Irene Han APRN.FORM RAISER [facility] 07-29-2024 Miscellaneous Notes PDMP website checked and validated. All prescriptions have been APPROPRIATELY filled. No suspicious activity was identified. 07/29/2024 by Irene Han APRN.FORM RAISER Rx sent Irene Han APRN.FORM RAISER Patient requesting refills as follows: Last ordered 06/25/2024. Next scheduled follow up appointment 07/30/2024. Requested Prescriptions Pending Prescriptions Disp Refills oxyCODONE IR (ROXICODONE) 10 mg tab 90 tablet 0 Sig: Take 1 tablet by mouth every 8 hours as needed for pain for up to 30 days. Kylie Mosher RN July 29, 2024 documented in this encounter [facility] 07-29-2024 Telephone encounter Note Patient requesting refills as follows: Last ordered 06/25/2024. Next scheduled follow up appointment 07/30/2024. Requested Prescriptions Pending Prescriptions Disp Refills oxyCODONE IR (ROXICODONE) 10 mg tab 90 tablet 0 Sig: Take 1 tablet by mouth every 8 hours as needed for pain for up to 30 days. Kylie Mosher RN July 29, 2024 [facility] 07-21-2024 History of Present illness Narrative Images from the original note were not included. Subjective Patient ID: Celso Weller is a 44 y.o. female who presents for Hospital Follow-up. Hospital follow-up [facility] Date of admission 07/06/24 Date of discharge 07/09/24 Discharge Summary Final Discharge Diagnosis: Principal Problem: NSTEMI (non-ST elevated myocardial infarction) (CMS/HCC) Active Problems: Primary hypertension Nodular lymphocyte predominant Hodgkin lymphoma (CMS/HCC) History of pulmonary embolism Uncomplicated asthma Hemoptysis Chronic hypoxic respiratory failure (CMS/HCC) Pulmonary hypertension (CMS/HCC) New daily persistent headache Admission Diagnosis: NSTEMI (non-ST elevated myocardial infarction) (CMS/HCC) [I21.4] Hospital course: 43-year-old female with the above history who was admitted from [facility] due to concern for NSTEMI. Patient had acute onset left-handed numbness on 07/05 and substernal chest pain that was sharp and nonradiating but associated with nausea. EKG did show ST depressions in leads I and aVL as well as Q waves in the inferior leads for which cardiology was consulted. The patient underwent cardiac catheterization and had drug-eluting stent placed to LAD for 99% occlusion. She was placed on DAPT therapy, however she developed hemoptysis and Xarelto was held. The patient had CT chest and pulmonology was consulted however there was no concern for diffuse alveolar hemorrhage. The patient remained on baseline oxygen requirements. The patient was due for discharge however began experiencing severe new onset headache for which neurology was consulted and she underwent MRI/MRA which were both negative. The next day the patient stated that her headache was resolved and she had no acute complaints. Pulmonology recommended obtaining CTA chest and also lower extremity duplex to evaluate for VTE and consideration of continuation of Xarelto. CTA chest was negative for PE and preliminary read was negative for DVT. It was elected that the patient would be discharged home without Xarelto and have follow-up with hematology for consideration of resuming this at some point in the future. She was discharged home in good condition on 07/09. Reviewed all of the above with patient Items to follow up in ambulatory setting: Follow-up serial CBCs and Hematology recommendations for Xarelto Follow-up with: Cardiology, Hematology/Oncology, and Pulmonary Scheduled appointments: Future Appointments Date Time Provider Department Center 07/20/2024 10:45 AM Temo Hdz MD CARD [facility] 07/21/2024 11:30 AM Stephanie Tyler PA-C [facility] Reviewed above with pt Has seen Cards Echo EF 45% CAD status post recent myocardial infarction and drug-eluting stenting of the LAD: I reviewed the coronary angiogram images with her. She has multivessel atherosclerotic disease with most significant residual disease in the first obtuse marginal branch of the circumflex [ramus vessel]. I indicated to her that management of the residual disease centers around antiplatelet therapy as well as high intensity lipid control. Her recent LDL was 145. She is currently on rosuvastatin 20 mg daily which is new to her. I will check a lipid and liver panel in 1 month and intensify therapy as needed. I am going to refer her to cardiac rehab. 2. Heart failure with mildly reduced ejection fraction: LVEF 40 to 45% by recent echocardiogram post the myocardial infarction. I explained to her that a lot of this could be due to stunning and might recover after the revascularization and with medical therapy. I am going to add spironolactone 12.5 mg once daily and check a BMP in 1 month. I will plan a follow-up echocardiogram in 3 months. 3. Hyperlipidemia: As above I am going to check liver and lipid panel in 1 month and adjust therapy as needed. 4. Inappropriate sinus tachycardia: This is a chronic condition for her. I explained to her that now that she has heart failure status post myocardial infarction I would like to target as low heart rate as possible. Her blood pressure is borderline at 99 systolic and she would not tolerate addition of higher dose of metoprolol succinate. I am going to add ivabradine 5 mg twice daily. 5. History of pulmonary embolism: This was about 10 years ago and was maintained on low-dose Xarelto 10 mg daily for maintenance therapy given her history of cancer. I think she should go back on Xarelto. There was an issue with hemoptysis when triple therapy was utilized during the hospitalization. At this time I will continue DAPT with aspirin and clopidogrel for another week and I instructed her to start Xarelto 10 mg daily after that and overlap triple therapy for only 1 week following which she will stop aspirin and continue clopidogrel and Xarelto 10 mg daily only. As for her prior history of pulmonary hypertension by prior echocardiogram, I reassured her given the results of the right heart catheterization in February 2024 in addition the echocardiogram in June 2024 did not show any pulmonary hypertension and no significant valvular regurgitation. All of the above reviewed Pt is feeling better The first couple days home were rought With the stress and tension [place] better and better each day Starts cardiac rehab tomorrow as well Current Outpatient Medications on File Prior to Visit Medication Sig Dispense Refill aspirin 81 MG EC tablet Take 81 mg by mouth Daily baclofen (Lioresal) 5 MG tablet Take 5 mg by mouth in the morning and 5 mg in the evening and 5 mg before bedtime. (Patient taking differently: Take 5 mg by mouth if needed) clopidogrel (Plavix) 75 MG tablet Take 75 mg by mouth Daily dexlansoprazole (Dexilant) [address] capsule Take 1 capsule (30 mg) by mouth Daily Do not crush or chew. 90 capsule 2 DULoxetine (Cymbalta) [address] capsule TAKE 1 CAPSULE (30 MG) BY MOUTH DAILY DO NOT CRUSH OR CHEW. 90 capsule 3 fluocinonide (Lidex) 0.05 % [...] every 6 (six) hours 180 mL 3 Ivabradine HCl 5 MG tablet Take 5 mg by mouth in the morning and 5 mg in the evening. ketoconazole (NIZOral) 2 % cream Apply 1 application topically 1 (one) time each day at the same time levothyroxine (Synthroid, Levoxyl) 75 MCG tablet Take 1 tablet (75 mcg) by mouth in the morning. Take before meals. 90 tablet 3 lisinopril 5 MG tablet Take 5 mg by mouth Daily LORazepam (Ativan) 0.5 MG tablet Take 1 tablet (0.5 mg) by mouth 4 (four) times a day as needed for anxiety 120 tablet 2 metoprolol succinate XL (Toprol-XL) 100 MG 24 hr tablet Take 100 mg by mouth Daily Do not crush or chew. oxyCODONE (Roxicodone) 10 MG immediate release tablet Take 10 mg by mouth every 4 (four) hours if needed Probiotic Product (Probiotic Daily) capsule 1 (one) time each day at the same time prochlorperazine (Compazine) 10 MG tablet Take 1 tablet (10 mg) by mouth every 6 (six) hours if needed for nausea 30 tablet 11 rosuvastatin (Crestor) 20 MG tablet Take 20 mg by mouth Daily spironolactone (Aldactone) 25 MG tablet Take 12.5 mg by mouth in the morning. traZODone (Desyrel) 150 MG tablet Take 1 tablet (150 mg) by mouth as needed at bedtime for sleep 90 tablet 3 [DISCONTINUED] atenolol (Tenormin) 50 MG tablet TAKE 1 TABLET BY MOUTH TWICE A DAY (Patient not taking: Reported on 07/15/2024) 180 tablet 3 [DISCONTINUED] rivaroxaban (Xarelto) 10 MG tablet Take 1 tablet (10 mg) by mouth Daily (Patient not taking: Reported on 07/15/2024) 90 tablet 3 No current facility-administered medications on file prior to visit. Allergies Allergen Reactions Chlorhexidine Unknown Sulfa Antibiotics Unknown I have reviewed and reconciled the history and medication list with the patient today. Review of Systems All other systems reviewed and are negative. Visit Vitals BP 90/70 Pulse 98 Ht 6' Wt 227 lb SpO2 97% BMI 30.79 kg/m Smoking Status Former BSA 2.29 m Objective Physical Exam Constitutional: General: She is not in acute distress. Appearance: Normal appearance. She is obese. Cardiovascular: Rate and Rhythm: Regular rhythm. Tachycardia present. Pulses: Normal pulses. Heart sounds: Normal heart sounds. No murmur heard. No friction rub. No gallop. Pulmonary: Effort: Pulmonary effort is normal. No respiratory distress. Breath sounds: No wheezing, rhonchi or rales. Comments: Diminished BS at the left base Abdominal: General: Bowel sounds are normal. There is no distension. Palpations: Abdomen is soft. There is no mass. Tenderness: There is no abdominal tenderness. Musculoskeletal: Right lower leg: No edema. Left lower leg: No edema. Neurological: General: No focal deficit present. Mental Status: She is alert. Psychiatric: Mood and Affect: Mood normal. Behavior: Behavior normal. Thought Content: Thought content normal. Judgment: Judgment normal. Assessment/Plan 1. NSTEMI (non-ST elevated myocardial infarction) (CMS/HCC) (Primary) 2. Acute systolic heart failure (CMS/HCC) Hospital records reviewed Doing well Reviewed meds Will monitor 3. Mixed hyperlipidemia (CMS/HCC) Started on crestor Tolerating well Cards is checking for follow up 4. Inappropriate sinus tachycardia (CMS/HCC) Working with cards Low BP limits pushing the beta blockers up Will monitor 5. Hx of pulmonary embolus Restart the xarelto per cards recs in a week and then 2 weeks will stop aspirin Next Appointment scheduled 09/10/2024 We will continue to follow up with this patient on a continued fpc basis to monitor and treat the above listed problems as well as their other chronic illnesses as part of a longitudinal care plan documented in this encounter [facility] 07-20-2024 Note [place] Cardiology - [facility] Subjective Celso Weller is a 44 y.o. year old female patient being seen for follow up PCI. Patient states she has been feel ok. Patient denies chest pain, SOB, leg swelling. Patient Active Problem List Diagnosis NSTEMI (non-ST elevated myocardial infarction) (CMS/HCC) Primary hypertension Nodular lymphocyte predominant Hodgkin lymphoma (CMS/HCC) History of pulmonary embolism Uncomplicated asthma Hemoptysis Chronic hypoxic respiratory failure (CMS/HCC) Pulmonary hypertension (CMS/HCC) New daily persistent headache Acquired hypothyroidism Anxiety Asymptomatic premature menopause Autologous bone marrow transplantation status (CMS/HCC) BMI 33.0-33.9,adult Chemotherapy-induced neuropathy Chronic prescription benzodiazepine use Gastroesophageal reflux disease Insomnia Major depressive disorder, single episode, mild Mild intermittent asthma Neuropathy 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) Opioid use agreement exists Peripheral neuropathy due to chemotherapy Pneumonitis Restrictive lung disease Psoriasis vulgaris Psoriatic arthritis (CMS/HCC) Simple chronic bronchitis (CMS/HCC) Tachycardia Uterine leiomyoma Vaginal high risk human papillomavirus (HPV) DNA test positive Vitamin D deficiency Voice hoarseness Family History Problem Relation Name Age of Onset Heart attack Maternal Grandfather Heart attack Paternal Grandfather Social History Tobacco Use Smoking status: Former Types: Cigarettes Smokeless tobacco: Never Substance Use Topics Alcohol use: Yes Comment: occasional Drug use: Never HPI Celso is seen in follow-up. This is the first time I am meeting her. She is a 44-year-old woman. Her prior medical history is significant for tachycardia for which she was maintained in the past on atenolol without any etiology for the tachycardia. She says that her heart rate is always around the 100 bpm. In addition she has history of Hodgkin's lymphoma status postchemotherapy and radiation therapy to the chest 10 years ago, last radiation therapy was 2 years ago. In addition she has a history of DVT and pulmonary embolism for which she was treated with anticoagulation and then maintained on maintenance dose Xarelto 10 mg daily. In addition she was previously investigated for possible pulmonary hypertension and valvular regurgitation at the [facility] but right heart catheterization that was performed in February 2024 did not show any significant pulmonary hypertension and her filling pressures were normal. She was transferred from the [facility] on 07/06/2024 due to NSTEMI. She was found to have subtotal occlusion of the LAD to which she underwent drug-eluting stent. In addition she was found to have 50% stenosis in the ramus intermedius vessel. She is currently maintained on dual antiplatelet therapy with aspirin and Plavix. During the hospitalization they had started Xarelto low-dose but she developed hemoptysis and this was stopped. Since the hospitalization she has been feeling good. No recurrence of the initial symptoms. She feels occasional twinges in the chest that are worrying her. Her heart rate is always elevated as before at around 100 bpm. She does not have significant lower extremity edema. No dizziness or lightheadedness. Her blood pressure is borderline. Review of Systems Cardiovascular: Negative for chest pain, dyspnea on exertion, irregular heartbeat, leg swelling, orthopnea, palpitations and syncope. Respiratory: Negative for cough and shortness of breath. Musculoskeletal: Negative for arthritis, falls and neck pain. Gastrointestinal: Negative for diarrhea and dysphagia. Neurological: Negative for light-headedness and loss of balance. Objective Visit Vitals BP 99/72 (BP Location: Right arm, Patient Position: Sitting) Pulse 100 Ht 1.829 m (6') Wt 103 kg (226 lb) LMP (LMP Unknown) SpO2 97% BMI 30.65 kg/m??? OB Status Postmenopausal Smoking Status Former BSA 2.29 m??? Physical Exam Constitutional: Appearance: She is well-developed. She is obese. She is not ill-appearing. HENT: Head: Normocephalic and atraumatic. Nose: Nose normal. Eyes: General: No scleral icterus. Pupils: Pupils are equal, round, and reactive to light. Neck: Thyroid: No thyromegaly. Vascular: No JVD. Cardiovascular: Rate and Rhythm: Normal rate and regular rhythm. Pulses: Radial pulses are 2+ on the right side and 2+ on the left side. Heart sounds: Normal heart sounds. No murmur heard. No friction rub. No gallop. Pulmonary: Effort: Pulmonary effort is normal. No respiratory distress. Breath sounds: Normal breath sounds. No wheezing or rales. Chest: Chest wall: No tenderness. Abdominal: General: Bowel sounds are normal. There is no distension. Palpations: Abdomen is soft. Tenderness: There is no abdominal ten (more content not included)... [facility] 07-09-2024 Note Hospital Medicine Discharge Summary Final Discharge Diagnosis: Principal Problem: NSTEMI (non-ST elevated myocardial infarction) (CMS/HCC) Active Problems: Primary hypertension Nodular lymphocyte predominant Hodgkin lymphoma (CMS/HCC) History of pulmonary embolism Uncomplicated asthma Hemoptysis Chronic hypoxic respiratory failure (CMS/HCC) Pulmonary hypertension (CMS/HCC) New daily persistent headache Admission Diagnosis: NSTEMI (non-ST elevated myocardial infarction) (CMS/HCC) [I21.4] Hospital course: 43-year-old female with the above history who was admitted from [facility] due to concern for NSTEMI. Patient had acute onset left-handed numbness on 07/05 and substernal chest pain that was sharp and nonradiating but associated with nausea. EKG did show ST depressions in leads I and aVL as well as Q waves in the inferior leads for which cardiology was consulted. The patient underwent cardiac catheterization and had drug-eluting stent placed to LAD for 99% occlusion. She was placed on DAPT therapy, however she developed hemoptysis and Xarelto was held. The patient had CT chest and pulmonology was consulted however there was no concern for diffuse alveolar hemorrhage. The patient remained on baseline oxygen requirements. The patient was due for discharge however began experiencing severe new onset headache for which neurology was consulted and she underwent MRI/MRA which were both negative. The next day the patient stated that her headache was resolved and she had no acute complaints. Pulmonology recommended obtaining CTA chest and also lower extremity duplex to evaluate for VTE and consideration of continuation of Xarelto. CTA chest was negative for PE and preliminary read was negative for DVT. It was elected that the patient would be discharged home without Xarelto and have follow-up with hematology for consideration of resuming this at some point in the future. She was discharged home in good condition on 07/09. Surgical, Invasive or Diagnostic Procedures Done During Admission: Cardiac Cath Consultations During Admission: Cardiology, Neurology, and Pulmonary Dear MD Genna, Celso is advised to follow up with you within 1-2 weeks. Items to follow up in ambulatory setting: Follow-up serial CBCs and Hematology recommendations for Xarelto Follow-up with: Cardiology, Hematology/Oncology, and Pulmonary Scheduled appointments: Future Appointments Date Time Provider Department Center 07/20/2024 10:45 AM Temo Hdz MD CARD [facility] 07/21/2024 11:30 AM Stephanie Tyler PA-C [facility] Your medication list ASK your doctor about these medications Instructions Last Dose Given Next Dose Due albuterol 2.5 mg /3 mL (0.083 %) nebulizer solution Anoro Ellipta 62.5-25 mcg/actuation blister with device Generic drug: umeclidinium-vilanteroL atenolol 50 mg tablet Commonly known as: Tenormin cyclobenzaprine 10 mg tablet Commonly known as: Flexeril DULoxetine [address] capsule Commonly known as: Cymbalta gabapentin 300 mg capsule Commonly known as: Neurontin levothyroxine 75 mcg tablet Commonly known as: Synthroid, Levoxyl LORazepam 0.5 mg tablet Commonly known as: Ativan OXYCODONE ORAL pantoprazole 40 mg EC tablet Commonly known as: ProtoNix Vitamin D3 25 MCG (1000 units) tablet Generic drug: cholecalciferol Xarelto 10 mg tablet Generic drug: rivaroxaban Ask about: Which instructions should I use? Celso is allergic to sulfa (sulfonamide antibiotics). Disposition: Home or Self Care () Discharge Condition: Stable Code Status: Full Code Diagnostic Results Hematology: Results from last 7 days Lab Units 07/09/24 0646 07/08/24 0434 WBC AUTO 10*3/uL 14.54* 14.26* HEMOGLOBIN g/dL 14.3 13.6 HEMATOCRIT % 43.5 41.2 MCV fL 94.2 95.2 PLATELETS AUTO 10*3/uL 320 286 Chemistry: Results from last 7 days Lab Units 07/09/24 0824 07/07/24 0608 07/06/24 0818 SODIUM mmol/L 138 141 140 POTASSIUM mmol/L 4.3 4.6 4.4 CHLORIDE mmol/L 101 107 106 CO2 mmol/L 31 31 28 BUN mg/dL 10 10 7 CREATININE mg/dL 0.60 0.62 0.62 GLUCOSE mg/dL 158* 113* 150* CALCIUM mg/dL 9.3 8.8 9.0 Results from last 7 days Lab Units 07/08/24 1333 AST U/L 27 ALT U/L 27 ALK PHOS U/L 49 BILIRUBIN TOTAL mg/dL 0.8 BILIRUBIN DIRECT mg/dL 0.2 Test Results Pending At Discharge: Diet at the time of discharge: regular diet Nutrition Screen Activity: Patient currently has no discharge activity orders Objective Blood pressure 115/76, pulse 101, temperature 36.4 ???C (97.5 ???F), temperature source Temporal, resp. rate 17, height 1.829 m (6'), weight 104 kg (229 lb), SpO2 92%. Refer to today's progress note. Total time for discharge - review of data, exam, discussion with providers and care-team, med-rec and orders, arranging follow up, counseling of patient and/or family and documentation was 30 minutes. Signed Tony Flanagan MD (more content not included)... [facility] 07-09-2024 Note - MRI/MRA negative - neurology consulted, appreciate recommendations [facility] 07-09-2024 Note - follow-up with car diology and pulmonology outpatient -Mild pulmonary hypertension mPAP 22, PVR 1.74 morillo, pcwp 4, CO 7.48 L/min based on RHC at [facility] 02/2024 multifactorial in the setting of history of PE, mediastinal radiation and post radiation fibrosis, bronchiectasis [facility] 07-09-2024 Note -Albuterol prn [facility] 07-09-2024 Note -AC currently on hol d in setting of hemoptysis [facility] 07-09-2024 Note - continue [facility] - Pending CTA to det ermine if Xarelto can be resumed [facility] 07-09-2024 Note -s/p multiple rounds chemoradiation with multiple radiation related complications including restrictive lung disease, pneumonitis, recurrent pneumonia, and neuropathy [facility] 07-09-2024 Note -Continue Toprol 100 mg daily -Hold lisinopril as blood pressure is soft. [facility] 07-09-2024 Note -S/p DESx2 to LAD -Continue aspirin, Plavix [facility] 07-09-2024 Note Attestation signed by Jeff Reeder MD at 07/10/2024 2:58 PM I reviewed the salient portions of the patient history. I have seen and examined the patient during rounds with the medical student/resident/fellow. I repeated the osorio components of the exam. Agree with the noted assessment and plan. Patient admitted with ACS, started on Aspirin / Plavix, AC for Pulmonary embolism on hold as patient had hemoptysis and epistaxis while on heparin gtt. CTA and Doppler LE -ve for DVT / PE, will continue to hold anticoagulation till patient will review, anticoagulation needs with her hematology/ oncology doctor in follow up appointment in 2 weeks. Will report back to ED or call 911 in case of worsening, non-improvement of symptoms, development of any kind of SOB, respiratory distress, swelling, redness or tenderness of any extremity. Jeff Reeder MD [facility] Pulmonary interventional and Critical Care Medicine. Pulmonology Progress Patient : Celso Weller; 43 y.o. Location: Attending: Tony Flanagan MD Admit Date: 07/06/2024 Hospital Day: 3 Reason for Consult: Hemoptysis, Restrictive Lung Disease Interval History: Patient was seen and evaluated at bedside. Pt confirms her past medical history of chronic hypoxic respiratory failure, restrictive lung diease, pleural effusion, nodular sclerosis hodgkin lymphoma, recurrent pneumonia, bronchiectasis, PE (on Xarelto), pulmonary hypertension, hypothyroidism, and a prior stem cell transplant. She reports that she typically wears 2-3L of O2 at home and says that she has done so for approximtaly 1 year. She confirms that she follows with [facility] for pulmonary and for oncology. Pt notes that she is scheduled to see her oncologist on 08/03/2024. She denies any chest pain, shortness of breath, LEMOS, dizziness, lightheadedness, cough, or congestion at this time. Pt confirms that she had one episode of hemoptysis 2 days ago. She states that she had an episode 1 day ago in which she blew her nose and saw blood in the tissue. She denies any recurrent episodes of hemoptysis since. Pt has been taken off the Heparin and Xarelto. She is currently still on Plavix and Asprin. 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 Relapse, she last received pembrolizumab on 05/01/2022, s/p RT, autologous bone marrow transplanation status Chronic hypoxic respiratory failure on 2-3L baseline Bronchiectasis and psot radiation lung fibrosis Hx of PE on Xarelto Mild pulmonary hypertension mPAP 22, PVR 1.74. pcwp 4, CO 7.48 L/min based on RHC at [facility] 02/2024 multifactorial in the setting of history of PE, mediastinal radiation and post radiation fibrosis, bronchiectasis Plan: - Plan to add on CTA chest and bilateral LE doppler to rule out PE/DVT -If both come back negative she can go home on aspirin and plavix only and hold xarelto till patient see's hematology/ oncology & PCP - Currently off heparin gtt, cont asa, and plavix -Currently, patient does endorse repeat episodes of hemoptysis -Patient will need to follow up with pulmonology as outpatient -Pulmonary will continue to follow Past History/Allergies/Social History: History reviewed. No pertinent past medical history. Allergies Allergen Reactions Sulfa (Sulfonamide Antibiotics) Rash Social History Socioeconomic History Marital status: Single Spouse name: Not on file Number of children: Not on file Years of education: Not on file Highest education level: Not on file Occupational History Not on file Tobacco Use Smoking status: Former Types: Cigarettes Smokeless tobacco: Never Substance and Sexual Activity Alcohol use: Not on file Drug use: Not on file Sexual activity: Not on file Other Topics Concern Not on file Social History Narrative Not on file Social Determinants of Health Financial Resource Strain: Low Risk (07/06/2024) Overall Financial Resource Strain (CARDIA) Difficulty of Paying Living Expenses: Not very hard Food Insecurity: No Food Insecurity (07/06/2024) Hunger Vital Sign Worried About Running Out of Food in the Last Year: Never true Ran Out of Food in the Last Year: Not on file Transportation Needs: No Transportation Needs (07/06/2024) Transportation Lack of Transportation (Medical): No Lack of Transp (more content not included)... [facility] 07-09-2024 Note Cardiology Inpatient Progress Note Subjective Reason for consult: Chest pain. HPI: Celso Weller is a 43 y.o. year old female with significant medical history of PE (on xarelto), hodgkin's lymphoma diagnosed 01/16/2012 s/p multiple rounds chemoradiation (see details below), with multiple radiation-related complications including restrictive lung disease, pneumonitis, recurrent pneumonia, and neuropathy. History obtained from patient. She presented with acute onset left hand numbness on 07/05/24, followed shortly by substernal chest pain. Pain was sharp, non-radiating, and associated with nausea. Otherwise negative for associated symptoms including no palpitations or diaphoresis. She had no experienced similar pain in the past. Pertinent vitals include sinus tachycardia. Notable labs include HS troponin 641. ECG demonstrated concern for ST depression in leads I and aVL. Cardiology was consulted for evaluation of chest pain. On 07/06/2024, she is s/p successful DESx2 to LAD, moderate 50% stenosis of the ramus intermedius coronary artery. 07/06 TTE LV was mildly reduced 40-45%. 07/09/2024: Patient was seen and evaluated at the bedside today. She denies chest pain, shortness of breath, palpitations, lightheadedness, dizziness, hemoptysis, or epistaxis. She remains on oxygen at her baseline support level. Heparin drip has been discontinued. 07/08/2024 Patient was seen and evaluated at the bedside today. She is seated at the edge of the bed, awake, alert, and in no acute distress. She reports ongoing headache and persistent hemoptysis. She remains on 2 L nasal cannula for oxygen support. PAST MEDICAL HISTORY: History reviewed. No pertinent past medical history. PAST SURGICAL HISTORY: History reviewed. No pertinent surgical history. FAMILY HISTORY: family history is not on file. SOCIAL HISTORY: Social History Tobacco Use Smoking status: Former Types: Cigarettes Smokeless tobacco: Never REVIEW OF SYSTEMS: General: Denies fever, chills, fatigue, weight loss, or malaise. HENT: Denies headache. Pulmonary: Denies shortness of breath, cough, wheezing,. Denies hemoptysis. Cardiovascular: Denies chest pain, palpitations, dizziness, or syncope. Peripheral Vascular: Denies leg swelling, cold extremities or claudication. Abdomen: Denies abdominal pain, nausea, vomiting, diarrhea, constipation, or bloating. No changes in appetite. Neurological: Denies headaches, weakness, numbness, tingling, or difficulty with coordination. Skin: Denies rashes, lesions, or itching. ALLERGIES: Allergies Allergen Reactions Sulfa (Sulfonamide Antibiotics) Rash Objective 12-24 hour telemetry reviewed: , 94-121 CURRENT MEDS: aspirin, 81 mg, oral, Daily cholecalciferol, 1,000 Units, oral, Daily clopidogrel, 75 mg, oral, Daily DULoxetine, 30 mg, oral, Nightly gabapentin, 600 mg, oral, TID levothyroxine, 75 mcg, oral, Daily before breakfast lisinopril, 5 mg, oral, Daily metoprolol succinate XL, 100 mg, oral, Daily pantoprazole, 40 mg, oral, Nightly [Held by provider] rivaroxaban, 10 mg, oral, Daily with evening meal rosuvastatin, 20 mg, oral, Daily umeclidinium-vilanteroL, 1 puff, inhalation, Daily [Held by provider] heparin, 0-28 Units/kg/hr, Last Rate: 15 Units/kg/hr (07/08/24 2320) PRN medications: acetaminophen, albuterol, cyclobenzaprine, [Held by provider] heparin AND [Held by provider] heparin (porcine), LORazepam, morphine, ondansetron ODT OR ondansetron, oxyCODONE, sennosides-docusate sodium, sodium chloride Patient Vitals for the past 24 hrs: BP Temp Temp src Pulse Resp SpO2 Weight 07/09/24 1140 103/77 36.4 ???C (97.5 ???F) Temporal 108 18 97 % -- 07/09/24 0735 109/79 36.3 ???C (97.3 ???F) Temporal 109 16 100 % -- 07/09/24 0611 -- -- -- -- -- -- 104 kg (229 lb) 07/09/24 0030 103/73 36.7 ???C (98.1 ???F) Temporal 102 11 99 % -- 07/08/24 1940 129/90 36.3 ???C (97.4 ???F) Temporal (!) 115 18 99 % -- 07/08/24 1712 111/79 36.5 ???C (97.7 ???F) Temporal 110 23 99 % -- 07/08/24 1530 92/63 -- -- 101 18 99 % -- 07/08/24 1517 86/61 -- -- 105 22 97 % -- BP 103/77 (BP Location: Right arm, Patient Position: Sitting) Pulse 108 Temp 36.4 ???C (97.5 ???F) (Temporal) Resp 18 Ht 1.829 m (6') Wt 104 kg (229 lb) SpO2 97% BMI 31.06 kg/m??? Wt Readings from Last 3 Encounters: 07/09/24 104 kg (229 lb) PHYSICAL EXAM: General: Alert and oriented, Appears comfortable in no acute distress. HENT: Head: Normocephalic, atraumatic. Eyes: Conjunctiva clear, sclera anicteric. No periorbital edema. Nose: No nasal congestion or discharge. T Neck: Supple, no lymphadenopathy. No bruits. No jugular venous distension (JVD) at 45???. Pulmonary: Symmetrical chest rise, no accessory muscle use. Clear to auscultation bilaterally. Cardiovascular: No visible heaves, lifts, or abnormal pulsations. Regular rate and rhythm. S1 and S2 present without murmurs, rubs, or gallops. (more content not included)... [facility] 07-09-2024 Note [facility] Neurology Progress Note: Interval Hx: Patient reported resolution of headache after getting the migraine cocktail yesterday but headache returned last night. She reports these recurrent headaches has been doing on for several months and helps with the percocet or prn pain meds. She again denied migraine features and describes headaches as frontal, pressure-like sensation without changes in vision, or no relation to position. Pain seems to be moderate intensity around 5-6/10. MRI brain with and without contrast 07/09/2024: CLINICAL HISTORY: Headache, papilledema. TECHNIQUE: Routine multiplanar [...] preserved by technique. No pathologic intraparenchymal enhancement. IMPRESSION: *No acute intracranial abnormality, accounting for motion artifact. MRA head 07/08/2024: MR HEAD ANGIO WO IV CONTRAST INDICATION: [...] distal vertebral and basilar arteries are patent. IMPRESSION: Normal MRA of the head. Objective: Temp: [36.3 ???C (97.3 ???F)-36.7 ???C (98.1 ???F)] 36.3 ???C (97.3 ???F) Heart Rate: [101-116] 109 Resp: [11-23] 16 BP: (86-129)/(56-90) 109/79 EXAM Awake, alert, oriented x3, no in acute distress Face symmetric Moves all 4 extremities antigravity Relevant Results: I have personally reviewed new lab and imaging results as well as any available finalized reports Assessment/Plan: Patient is a 43 y.o. where for NSTEMI and neurology consulted regarding worsening of tension type headache, and likely component of analgesic overuse headache. Headache improved with migraine cocktail. MRI brain and MRA normal. She is on gabapentin 600 mg tid for neuropathic pain and cymbalta 3 mg for depression. Recommend repeat migraine cocktail (solumedrol, benadryl, reglan, NS) q8hr prn, may also add magnesium and give the prn tylenol at the same time. Neurology will sign off. Please provide referral to [facility] if headache continues to be a persistent issue. I have spent 20 mins of clinical care time including direct patient evaluation, chart review, discussion with the multidisciplinary team and coordination of care. Darlene Sorto MD [facility] 07-09-2024 Note Hospital Medicine Daily Progress Note - 07/09/2024 7:25 AM; Room: [address] [place] [address] Admission: 07/06/2024 6:00 AM; Length of stay: 3 days THE HOSPITALIST TEAM PREFERS TO USE [employer] CHAT FOR NON-URGENT COMMUNICATION 7AM-7PM. IF I DO NOT RESPOND WITHIN 20 MINUTES OR URGENT MATTERS, PLEASE CALL THROUGH THE MASTER [employer]. FROM 7PM-7AM, PLEASE PAGE [phone](COVR). Code Status: Full Code Barriers to Discharge: Pulm workup Expected Discharge Date: 07/09/24 Discharge Destination: home Overview Patient is seen for evaluation and management of NSTEMI s/p PCI, hemoptysis. Subjective patient seen and examined. She remains on 2 L nasal cannula. Denies dyspnea, chest pain, fever, sweats, chills, productive cough. Physical Exam Visit Vitals BP 103/73 Pulse 102 Temp 36.7 ???C (98.1 ???F) (Temporal) Resp 11 Intake/Output Summary (Last 24 hours) at 07/09/2024 0700 Last data filed at 07/08/2024 2320 Gross per 24 hour Intake 1929.58 ml Output 0 ml Net 1929.58 ml Estimated body mass index is 31.06 kg/m??? as calculated from the following: Height as of this encounter: 1.829 m (6'). Weight as of this encounter: 104 kg (229 lb). Constitutional: NAD, AOx3 Eyes: EOMI, normal conjunctiva Mouth: Moist, no lesions CV: RRR, normal S1-S2, no murmurs Resp: CTA, no crackles or wheezing Abd: Soft, non-tender Extremities: No swelling, 2+ distal pulses Skin : Warm, dry Neuro: AOx3, no focal deficits Psych: Appropriate mood and affect Assessment and Plan Assessment & Plan NSTEMI (non-ST elevated myocardial infarction) ([facility]/HCC) -S/p DESx2 to LAD -Continue aspirin, Plavix Primary hypertension -Continue Toprol 100 mg daily -Hold lisinopril as blood pressure is soft. Nodular lymphocyte predominant Hodgkin lymphoma ([facility]/HCC) -s/p multiple rounds chemoradiation with multiple radiation related complications including restrictive lung disease, pneumonitis, recurrent pneumonia, and neuropathy History of pulmonary embolism -AC currently on hold in setting of hemoptysis Uncomplicated asthma -Albuterol prn Hemoptysis - Pending CTA to determine if Xarelto can be resumed Chronic hypoxic respiratory failure ([facility]) - continue 2 L nasal cannula Pulmonary hypertension ([facility]) - follow-up with cardiology and pulmonology outpatient -Mild pulmonary hypertension mPAP 22, PVR 1.74 morillo, pcwp 4, CO 7.48 L/min based on RHC at [facility] 02/2024 multifactorial in the setting of history of PE, mediastinal radiation and post radiation fibrosis, bronchiectasis New daily persistent headache - MRI/MRA negative - neurology consulted, appreciate recommendations VTE Prophylaxis: Hold due to ongoing hemoptysis Scheduled Meds aspirin, 81 mg, oral, Daily cholecalciferol, 1,000 Units, oral, Daily clopidogrel, 75 mg, oral, Daily DULoxetine, 30 mg, oral, Nightly gabapentin, 600 mg, oral, TID levothyroxine, 75 mcg, oral, Daily before breakfast lisinopril, 5 mg, oral, Daily metoprolol succinate XL, 100 mg, oral, Daily pantoprazole, 40 mg, oral, Nightly [Held by provider] rivaroxaban, 10 mg, oral, Daily with evening meal rosuvastatin, 20 mg, oral, Daily umeclidinium-vilanteroL, 1 puff, inhalation, Daily [Held by provider] heparin, 0-28 Units/kg/hr, Last Rate: 15 Units/kg/hr (07/08/24 2320) Pertinent Investigations Hematology: Results from last 7 days Lab Units 07/09/24 0646 07/08/24 0434 WBC AUTO 10*3/uL 14.54* 14.26* HEMOGLOBIN g/dL 14.3 13.6 HEMATOCRIT % 43.5 41.2 MCV fL 94.2 95.2 PLATELETS AUTO 10*3/uL 320 286 Chemistry: Results from last 7 days Lab Units 07/07/24 0608 07/06/24 0818 SODIUM mmol/L 141 140 POTASSIUM mmol/L 4.6 4.4 CHLORIDE mmol/L 107 106 CO2 mmol/L 31 28 BUN mg/dL 10 7 CREATININE mg/dL 0.62 0.62 GLUCOSE mg/dL 113* 150* CALCIUM mg/dL 8.8 9.0 Results from last 7 days Lab Units 07/08/24 1333 AST U/L 27 ALT U/L 27 ALK PHOS U/L 49 BILIRUBIN TOTAL mg/dL 0.8 BILIRUBIN DIRECT mg/dL 0.2 Historical Values: (Includes values prior to this admission) Lab Results Component Value Date HDL 57 07/06/2024 LDL 168 07/06/2024 No results found for: [id number] , IRON , TIBC , C3 , C4 , CAL , CANCA , ASO , PSA , CEA , CA125 , CA199 , AFP , CA153 Imaging MRA head wo IV contrast Narrative: MR HEAD ANGIO WO IV CONTRAST INDICATION: [...] portions of the distal vertebral and basilar a (more content not included)... [facility] 07-08-2024 Note Continue Toprol 100 mg daily Hold lisinopril as blood pressure is soft. [facility] 07-08-2024 Note Mild pulmonary hyper tension mPAP 22, PVR 1.74 morillo, pcwp 4, CO 7.48 L/min based on RHC at [facility] 02/2024 multifactorial in the setting of history of PE, mediastinal radiation and post radiation fibrosis, bronchiectasis [facility] 07-08-2024 Note This is likely secon rich to restrictive lung disease, bronchiectasis and postradiation lung fibrosis Patient uses 2 to 3 L nasal cannula oxygen at baseline Continue supplemental oxygenation to maintain oxygen saturation above 92%. [facility] 07-08-2024 Note S/p DESx2 to LAD Continue aspirin, Plavix [facility] 07-08-2024 Note Patient reported hem optysis this morning. Hold Xarelto, discontinue heparin infusion due to ongoing hemoptysis. Hemoglobin is stable. [facility] 07-08-2024 Note [facility] head 07/07 concern ing for intracranial hypertension Neurology consulted. MRI is pending. [facility] 07-08-2024 Note s/p multiple rounds chemoradiation with multiple radiation related complications including restrictive lung disease, pneumonitis, recurrent pneumonia, and neuropathy [facility] 07-08-2024 Note Hold Xarelto, discon tinue heparin infusion Discussed with pulmonary, patient will follow-up with hematology outpatient regarding resuming Xarelto [facility] 07-08-2024 Note Hospital Medicine Daily Progress Note - 07/08/2024 12:06 PM; Room: [address] [place] [address] Admission: 07/06/2024 6:00 AM; Length of stay: 2 days THE HOSPITALIST TEAM PREFERS TO USE [employer] CHAT FOR NON-URGENT COMMUNICATION 7AM-7PM. IF I DO NOT RESPOND WITHIN 20 MINUTES OR URGENT MATTERS, PLEASE CALL THROUGH THE [employer]. FROM 7PM-7AM, PLEASE PAGE [phone](COVR). Code Status: Full Code Barriers to Discharge: Neurology evaluation, Soft BP Expected Discharge Date: 07/09/24 Discharge Destination: home Overview Patient is seen for evaluation and management of NSTEMI s/p PCI, hemoptysis. Subjective Patient was seen and examined at bedside this morning. She was alert awake and oriented. Patient reported that she ongoing headache, CT head 07/07 concerning for idiopathic intracranial hypertension. Patient still has coinciding ongoing hemoptysis, pulmonology recommended holding Xarelto and discontinuing heparin infusion. Physical Exam Visit Vitals BP 97/65 Pulse 110 Temp 36.2 ???C (97.2 ???F) (Temporal) Resp 16 Intake/Output Summary (Last 24 hours) at 07/08/2024 1206 Last data filed at 07/08/2024 1146 Gross per 24 hour Intake 989.11 ml Output 0 ml Net 989.11 ml Physical Exam Constitutional: Appearance: Normal appearance. Cardiovascular: Rate and Rhythm: Normal rate and regular rhythm. Pulses: Normal pulses. Heart sounds: Normal heart sounds. Pulmonary: Effort: Pulmonary effort is normal. Breath sounds: Rales present. Abdominal: General: Abdomen is flat. Palpations: Abdomen is soft. Skin: General: Skin is warm. Neurological: General: No focal deficit present. Mental Status: She is alert and oriented to person, place, and time. Estimated body mass index is 31.06 kg/m??? as calculated from the following: Height as of this encounter: 1.829 m (6'). Weight as of this encounter: 104 kg (229 lb). Assessment and Plan Assessment & Plan New daily persistent headache CT head 07/07 concerning for intracranial hypertension Neurology consulted. MRI is pending. Hemoptysis Hold Xarelto, discontinue heparin infusion Discussed with pulmonary, patient will follow-up with hematology outpatient regarding resuming Xarelto NSTEMI (non-ST elevated myocardial infarction) (CMS/HCC) S/p DESx2 to LAD Continue aspirin, Plavix Chronic hypoxic respiratory failure (CMS/HCC) This is likely secondary to restrictive lung disease, bronchiectasis and postradiation lung fibrosis Patient uses 2 to 3 L nasal cannula oxygen at baseline Continue supplemental oxygenation to maintain oxygen saturation above 92%. Primary hypertension Continue Toprol 100 mg daily Hold lisinopril as blood pressure is soft. Nodular lymphocyte predominant Hodgkin lymphoma (CMS/HCC) s/p multiple rounds chemoradiation with multiple radiation related complications including restrictive lung disease, pneumonitis, recurrent pneumonia, and neuropathy History of pulmonary embolism Patient reported hemoptysis this morning. Hold Xarelto, discontinue heparin infusion due to ongoing hemoptysis. Hemoglobin is stable. Uncomplicated asthma Continue albuterol as needed Pulmonary hypertension (CMS/HCC) Mild pulmonary hypertension mPAP 22, PVR 1.74 morillo, pcwp 4, CO 7.48 L/min based on RHC at [facility] 02/2024 multifactorial in the setting of history of PE, mediastinal radiation and post radiation fibrosis, bronchiectasis VTE Prophylaxis: Hold due to ongoing hemoptysis Scheduled Meds aspirin, 81 mg, oral, Daily cholecalciferol, 1,000 Units, oral, Daily clopidogrel, 75 mg, oral, Daily DULoxetine, 30 mg, oral, Nightly gabapentin, 600 mg, oral, TID levothyroxine, 75 mcg, oral, Daily before breakfast lisinopril, 5 mg, oral, Daily metoprolol succinate XL, 100 mg, oral, Daily pantoprazole, 40 mg, oral, Nightly [Held by provider] rivaroxaban, 10 mg, oral, Daily with evening meal rosuvastatin, 20 mg, oral, Daily umeclidinium-vilanteroL, 1 puff, inhalation, Daily [Held by provider] heparin, 0-28 Units/kg/hr, Last Rate: 15 Units/kg/hr (07/08/24 1146) Pertinent Investigations Hematology: Results from last 7 days Lab Units 07/08/24 0434 07/07/24 1802 07/07/24 0608 WBC AUTO 10*3/uL 14.26* -- 15.08* HEMOGLOBIN g/dL 13.6 -- 13.6 HEMATOCRIT % 41.2 -- 41.5 MCV fL 95.2 -- 95.6 PLATELETS AUTO 10*3/uL 286 304 304 Chemistry: Results from last 7 days Lab Units 07/07/24 0608 07/06/24 0818 SODIUM mmol/L 141 140 POTASSIUM mmol/L 4.6 4.4 CHLORIDE mmol/L 107 106 CO2 mmol/L 31 28 BUN mg/dL 10 7 CREATININE mg/dL 0.62 0.62 GLUCOSE mg/dL 113* 150* CALCIUM mg/dL 8.8 9.0 No lab exists for component: AFIO2 , APHT , APCOT , APOT , ATCO2 , CK , ALB , IBILI Historical Values: (Includes values prior to this admission) Lab Results Component Value Date HDL 57 07/06/2024 LDL 168 07/06/2024 No results found for: [id number] , IRON , TIBC , C3 , C4 , CAL , CANCA , ASO , PS (more content not included)... [facility] 07-08-2024 Note [facility] General Neurology Consultation Note Chief Complaint and reason for Consultation: Headache HPI: Celso Weller is a 43 y.o. year old female patient for whom Neurology was consulted for chief complaint of headache. History obtained from patient. She has h hodgkin's lymphoma s/p multiple rounds chemoradiation,, with multiple radiation-related complications including restrictive lung disease, pneumonitis, recurrent pneumonia, and neuropathy. She is currently admitted for NSTEMI. She reports headaches ongoing for the past 1 year, no prior injury. She describes bifrontal pain, ache, with strong jabs, and often worse over left temporal region. This is usually a 4-5/10, though currently a 6/10. Headaches have NO associated sx; no photo/phonophobia, no nausea/vomiting, no visual changes, no tinnitus. She does report headache worsened w/ coughing/bearing down (worse w/ valsalva). Headache normally lasts about a day, and foes away w/ percocet (prescribed by palliative medicine for generalized pain). However, current headache has been ongoing for ~2 days. She takes Gabapentin and Cymbalta for pain. She has been given [place] for pain, which did not help significantly. Past Medical History She has no past medical history on file. Surgical History She has no past surgical history on file. Social History She reports that she has quit smoking. Her smoking use included cigarettes. She has never used smokeless tobacco. No history on file for alcohol use and drug use. Family History No family history on file. Pertinent Systems reviewed as per initial HPI, and negative except for mentioned above. Medications: Current Facility-Administered Medications: acetaminophen (Tylenol) tablet 650 mg, 650 mg, oral, q6h PRN, Jan Kelly MD, 650 mg at 07/08/24 0410 albuterol 2.5 mg /3 mL (0.083 %) nebulizer solution 2.5 mg, 2.5 mg, nebulization, q6h PRN, Jhonny Guillen MD, 2.5 mg at 07/06/24 1700 aspirin EC tablet 81 mg, 81 mg, oral, Daily, [place], 81 mg at 07/08/24 1043 cholecalciferol (Vitamin D-3) tablet 1,000 Units, 1,000 Units, oral, Daily, Jhonny Guillen MD, 1,000 Units at 07/08/24 1043 clopidogrel (Plavix) tablet 75 mg, 75 mg, oral, Daily, [place], 75 mg at 07/08/24 1043 cyclobenzaprine (Flexeril) tablet 10 mg, 10 mg, oral, q8h PRN, Jhonny Guillen MD, 10 mg at 07/07/24 1233 DULoxetine (Cymbalta) DR capsule 30 mg, 30 mg, oral, Nightly, Jhonny Guillen MD, 30 mg at 07/07/24 2132 gabapentin (Neurontin) capsule 600 mg, 600 mg, oral, TID, Jhonny Guillen MD, 600 mg at 07/08/24 1043 [Held by provider] heparin infusion 100 units/mL in D5W, 0-28 Units/kg/hr, intravenous, Continuous, Last Rate: 16.1 mL/hr at 07/08/24 09, 15 Units/kg/hr at 07/08/24 0938 AND [Held by provider] heparin (porcine) injection 2,700 Units, 25 Units/kg, intravenous, q6h PRN, Liz Valdez MD levothyroxine (Synthroid, Levoxyl) tablet 75 mcg, 75 mcg, oral, Daily before breakfast, Jhonny Guillen MD, 75 mcg at 07/08/24 0631 lisinopril tablet 5 mg, 5 mg, oral, Daily, [place], 5 mg at 07/07/24 1453 LORazepam (Ativan) tablet 0.5 mg, 0.5 mg, oral, 4x daily PRN, Jhonny Guillen MD, 0.5 mg at 07/08/24 0411 metoprolol succinate XL (Toprol-XL) 24 hr tablet 100 mg, 100 mg, oral, Daily, [place], 100 mg at 07/08/24 1045 morphine injection 2 mg, 2 mg, intravenous, q4h PRN, Johnny Guillen MD, 2 mg at 07/06/24 1728 ondansetron ODT (Zofran-ODT) disintegrating tablet 4 mg, 4 mg, oral, q8h PRN OR ondansetron HCl (PF) (Zofran) injection 4 mg, 4 mg, intravenous, q6h PRN, Jan Kelly MD oxyCODONE (Roxicodone) immediate release tablet 10 mg, 10 mg, oral, q8h PRN, Jhonny Guillen MD, 10 mg at 07/08/24 0814 pantoprazole (ProtoNix) EC tablet 40 mg, 40 mg, oral, Nightly, Jhonny Guillen MD, 40 mg at 07/07/24 2133 [Held by provider] rivaroxaban (Xarelto) tablet 10 mg, 10 mg, oral, Daily with evening meal, Liz Valdez MD rosuvastatin (Crestor) tablet 20 mg, 20 mg, oral, Daily, Rock Kadivar, 20 mg at 07/08/24 1044 sennosides-docusate sodium (Dina-Colace) 8.6-50 mg per tablet 1 tablet, 1 tablet, oral, BID PRN, Jan Kelly MD sodium chloride ([place]) 0.65 % nasal spray 1 spray, 1 spray, Each Nostril, PRN, Liz Valdez MD umeclidinium-vilanteroL (Anoro Ellipta) 62.5-25 mcg/actuation inhaler 1 puff, 1 puff, inhalation, Daily, Jhonny Guillen MD, 1 puff at 07/08/24 1043 Physical Exam: Vital Signs: Visit Vitals BP 91/56 Comment: Dr. Valdez instructed to still give this medication Pulse (!) 115 Temp 36.2 ???C (97.2 ???F) (Temporal) Resp 19 General: Normotensive, in no acute distress Cardiac Examination: Peripheral pulses intact Neurological Examination: Oriented to person, place, and time Attention span, concentration intact Recent and remote memory intact Language intact Fund of knowledge appropriate Ophthalmological Examination: (more content not included)... [facility] 07-08-2024 Note Cardiology Inpatient Progress Note Subjective Reason for consult: Chest pain. HPI: Celso Weller is a 43 y.o. year old female with significant medical history of PE (on xarelto), hodgkin's lymphoma diagnosed 01/16/2012 s/p multiple rounds chemoradiation (see details below), with multiple radiation-related complications including restrictive lung disease, pneumonitis, recurrent pneumonia, and neuropathy. History obtained from patient. She presented with acute onset left hand numbness on 07/05/24, followed shortly by substernal chest pain. Pain was sharp, non-radiating, and associated with nausea. Otherwise negative for associated symptoms including no palpitations or diaphoresis. She had no experienced similar pain in the past. Pertinent vitals include sinus tachycardia. Notable labs include HS troponin 641. ECG demonstrated concern for ST depression in leads I and aVL. Cardiology was consulted for evaluation of chest pain. On 07/06/2024, she is s/p successful DESx2 to LAD, moderate 50% stenosis of the ramus intermedius coronary artery. 07/06 TTE LV was mildly reduced 40-45%. 07/08/2024: Patient was seen and evaluated at the bedside today. She is seated at the edge of the bed, awake, alert, and in no acute distress. She reports ongoing headache and persistent hemoptysis. She remains on 2 L nasal cannula for oxygen support. PAST MEDICAL HISTORY: History reviewed. No pertinent past medical history. PAST SURGICAL HISTORY: History reviewed. No pertinent surgical history. FAMILY HISTORY: family history is not on file. SOCIAL HISTORY: Social History Tobacco Use Smoking status: Former Types: Cigarettes Smokeless tobacco: Never REVIEW OF SYSTEMS: General: Denies fever, chills, fatigue, weight loss, or malaise. HENT: Endorses headache. Pulmonary: Denies shortness of breath, cough, wheezing,. Endorses hemoptysis. Cardiovascular: Denies chest pain, palpitations, dizziness, or syncope. Peripheral Vascular: Denies leg swelling, cold extremities or claudication. Abdomen: Denies abdominal pain, nausea, vomiting, diarrhea, constipation, or bloating. No changes in appetite. Neurological: Denies headaches, weakness, numbness, tingling, or difficulty with coordination. Skin: Denies rashes, lesions, or itching. ALLERGIES: Allergies Allergen Reactions Sulfa (Sulfonamide Antibiotics) Rash Objective 12-24 hour telemetry reviewed: , 106-127. CURRENT MEDS: aspirin, 81 mg, oral, Daily cholecalciferol, 1,000 Units, oral, Daily clopidogrel, 75 mg, oral, Daily diphenhydrAMINE, 25 mg, intravenous, Once DULoxetine, 30 mg, oral, Nightly gabapentin, 600 mg, oral, TID levothyroxine, 75 mcg, oral, Daily before breakfast lisinopril, 5 mg, oral, Daily methylPREDNISolone sod suc (PF), 250 mg, intravenous, Once metoclopramide, 10 mg, intravenous, Once metoprolol succinate XL, 100 mg, oral, Daily pantoprazole, 40 mg, oral, Nightly [Held by provider] rivaroxaban, 10 mg, oral, Daily with evening meal rosuvastatin, 20 mg, oral, Daily sodium chloride, 500 mL, intravenous, Once umeclidinium-vilanteroL, 1 puff, inhalation, Daily [Held by provider] heparin, 0-28 Units/kg/hr, Last Rate: 15 Units/kg/hr (07/08/24 1146) PRN medications: acetaminophen, albuterol, cyclobenzaprine, [Held by provider] heparin AND [Held by provider] heparin (porcine), LORazepam, morphine, ondansetron ODT OR ondansetron, oxyCODONE, sennosides-docusate sodium, sodium chloride Patient Vitals for the past 24 hrs: BP Temp Temp src Pulse Resp SpO2 Weight 07/08/24 1218 106/73 36.7 ???C (98.1 ???F) Temporal 105 19 97 % -- 07/08/24 1122 97/65 -- -- 110 16 96 % -- 07/08/24 1045 91/56 -- -- (!) 115 20 98 % -- 07/08/24 1034 87/57 -- -- (!) 116 21 96 % -- 07/08/24 1010 92/59 -- -- (!) 111 19 96 % -- 07/08/24 0801 104/68 36.2 ???C (97.2 ???F) Temporal (!) 121 19 97 % -- 07/08/24 0500 -- -- -- -- -- -- 104 kg (229 lb) 07/08/24 0405 114/68 36.7 ???C (98.1 ???F) Temporal (!) 117 18 97 % -- 07/07/24 2336 118/78 -- -- 107 19 98 % -- 07/07/24 1937 97/64 36.7 ???C (98.1 ???F) Temporal (!) 120 24 97 % -- 07/07/24 1711 91/63 36.9 ???C (98.4 ???F) Temporal 109 22 96 % -- BP 106/73 (BP Location: Right arm, Patient Position: Lying) Pulse 105 Temp 36.7 ???C (98.1 ???F) (Temporal) Resp 19 Ht 1.829 m (6') Wt 104 kg (229 lb) SpO2 97% BMI 31.06 kg/m??? Wt Readings from Last 3 Encounters: 07/08/24 104 kg (229 lb) PHYSICAL EXAM: General: Alert and oriented, Appears comfortable in no acute distress. HENT: Head: Normocephalic, atraumatic. Eyes: Conjunctiva clear, sclera anicteric. No periorbital edema. Nose: No nasal congestion or discharge. T Neck: Supple, no lymphadenopathy. No bruits. No jugular venous distension (JVD) at 45???. Pulmonary: Symmetrical chest rise, no accessory muscle use. Clear to auscultation bilaterally. Cardiovascular: No visible heaves, lifts, or abnormal pulsations. Regular ra (more content not included)... [facility] 07-08-2024 Note Attestation signed by Melissa Glover MD at 07/09/2024 9:01 AM (Updated) I reviewed the salient portions of the patient history. I have seen and examined the patient during rounds with the resident/fellow. I repeated the osorio components of the exam. Agree with the noted assessment and plan. Acute systolic heart failure, acute pulmonary edema: Continue ASA, Plavix, and lasix. Hemoptysis slowing down, will keep holding and resume as an outpatient depending on her progress. Melissa Glover MD [facility] Pulmonary interventional and Critical Care Medicine . Pulmonology Progress Patient : Celso Weller; 43 y.o. Location: 3116/3116-01 Attending: Liz Valdez MD Admit Date: 07/06/2024 Hospital Day: 2 Reason for Consult: Hemoptysis Restrictive lung disease Subjective: Celso Weller is a 43 y.o. female with a past medical history with past medical history of chronic hypoxic respiratory failure, on 2-3 L at baseline, restrictive lung disease, pleural effusion, Nodular sclerosis hodgkin lymphoma diagnosed in 01/2023 status post x6 cycles ABVD chemotherapy, recurrence in 2012, x3 cycles of beam radiation, s/p mediastinal irradiation, extensive systemic therapy and ASCT (2013. S/p busulfan, etoposide, CyC), history recurrent pneumonias, history of bronchiectasis, PE on Xarelto, pulmonary hypertension, hypothyroidism on stable dose of synthroid, stem cell transplantation who was transferred from an out side hospital for left arm numbness and chest pain. Patient admitted of acute coronary syndrome in the setting of chest pain, left hand numbness, and elevation of serum troponin. Patient underwent a PCI 99% LAD occlusion on angiography, s/p DESx2 to LAD on 07/06/2024. Pulmonology were consulted today due an episode of hemoptysis of bright red blood. Patient is currently on aspirin and plavix post stenting. Seen and examined today at bedside, patient endorses congestion, with cough, shortness of breath, denies more chest pain, of any other significant complaints. Discussed with patient and nurse at bedside, all questions and concerns were addressed and answered. Patient was previously had bronchoscopies with BAL for recurrent pneumonias which showed rare Stenotrophomonas maltophilia. Most recent PFT From [facility] records 12/2023 Most recent Echo 07/06 TTE Left Ventricle: The left ventricle is normal [...] opacification and better delineation of endocardial borders. Most recent previous Chest imaging None on file Subjective: Interval Hx 07/08/2024: Patient seen and examined today at bedside, patient had a small hemoptysis once. Remains on heparin gtt, off Xarelto. Received one dose of lasix due to congestion. CT chest 07/07 showed poorly circumscribed perihilar consolidations with multifocal bronchiectasis and more focal airspace consolidations in the bilateral lower lobes and left upper lobe. 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 S/p busulfan, etoposide, CyC), #S/p high-dose busulfan, etoposide, and cyclophosphamide with autologous stem cell transplantation February 2013. Relapse, she last received pembrolizumab on 05/01/2022, s/p RT, autologous bone marrow transplantation status Chronic hypoxic respiratory failure on 2-3 L at baseline Bronchiectasis and post radiation lung fibrosis Hx of PE on Xerelto Mild pulmonary hypertension mPAP 22, PVR 1.74 morillo, pcwp 4, CO 7.48 L/min based on RHC at [facility] 02/2024 multifactorial in the setting of history of PE, mediastinal radiation and post radiation fibrosis, bronchiectasis Plan: - chest CT wo contrast reviewed -Currently patient does not endorses repeated episodes -Hgb check today stable, would continue to monitor daily -Recommend holding Xarelto, Stop heparin gtt - Reevaluate with hematology as out patient for resuming Xarelto - For now can be discharged home on asa and plavix (more content not included)... [facility] 07-07-2024 Note Hold Xarelto, contin ue heparin infusion Discussed with pulmonary CT chest pending [facility] 07-07-2024 Note Continue lisinopril 5 mg daily, Toprol 100 mg daily [facility] 07-07-2024 Note Patient reported hem optysis this morning. Hold Xarelto, continue heparin infusion [facility] 07-07-2024 Note s/p multiple rounds chemoradiation with multiple radiation related complications including restrictive lung disease, pneumonitis, recurrent pneumonia, and neuropathy [facility] 07-07-2024 Note S/p DESx2 to LAD Continue aspirin, Plavix [facility] 07-07-2024 Note [facility] Mild pulmonary hyper tension mPAP 22, PVR 1.74 morillo, pcwp 4, CO 7.48 L/min based on RHC at [facility] 02/2024 multifactorial in the setting of history of PE, mediastinal radiation and post radiation fibrosis, bronchiectasis [facility] 07-07-2024 Note This is likely secon rich to restrictive lung disease, bronchiectasis and postradiation lung fibrosis Patient uses 2 to 3 L nasal cannula oxygen at baseline Continue supplemental oxygenation to maintain oxygen saturation above 92%. [facility] 07-07-2024 Note Hospital Medicine Daily Progress Note - 07/07/2024 4:27 PM; Room: [address] [place] [address] Admission: 07/06/2024 6:00 AM; Length of stay: 1 days THE HOSPITALIST TEAM PREFERS TO USE [employer] (T/A) FOR NON-URGENT COMMUNICATION 7AM-7PM. IF I DO NOT RESPOND WITHIN 20 MINUTES OR URGENT MATTERS, PLEASE CALL THROUGH THE MASTER FISHER. FROM 7PM-7AM, PLEASE PAGE [phone](COVR). Code Status: Full Code Barriers to Discharge: Pulmonary evaluation, CT chest Expected Discharge Date: 1-2 days Discharge Destination: home Overview Patient is seen for evaluation and management of NSTEMI s/p PCI, hemoptysis. Subjective Patient was seen and examined at bedside this morning. She was alert awake and oriented. Patient reported that she has been experiencing headache, IV magnesium was ordered. Later patient's nurse reported that she has been experiencing hemoptysis. Pulmonary was consulted. Physical Exam Visit Vitals BP 107/77 Pulse (!) 120 Temp 37 ???C (98.6 ???F) (Temporal) Resp 19 Intake/Output Summary (Last 24 hours) at 07/07/2024 1627 Last data filed at 07/07/2024 1328 Gross per 24 hour Intake 607.4 ml Output 2150 ml Net -1542.6 ml Physical Exam Constitutional: Appearance: Normal appearance. Cardiovascular: Rate and Rhythm: Normal rate and regular rhythm. Pulses: Normal pulses. Heart sounds: Normal heart sounds. Pulmonary: Effort: Pulmonary effort is normal. Breath sounds: Rales present. Abdominal: General: Abdomen is flat. Palpations: Abdomen is soft. Skin: General: Skin is warm. Neurological: General: No focal deficit present. Mental Status: She is alert and oriented to person, place, and time. Estimated body mass index is 31.95 kg/m??? as calculated from the following: Height as of this encounter: 1.829 m (6'). Weight as of this encounter: 107 kg (235 lb 9.6 oz). Assessment and Plan Assessment & Plan Hemoptysis Hold Xarelto, continue heparin infusion Discussed with pulmonary CT chest pending NSTEMI (non-ST elevated myocardial infarction) (CMS/HCC) S/p DESx2 to LAD Continue aspirin, Plavix Chronic hypoxic respiratory failure (CMS/HCC) This is likely secondary to restrictive lung disease, bronchiectasis and postradiation lung fibrosis Patient uses 2 to 3 L nasal cannula oxygen at baseline Continue supplemental oxygenation to maintain oxygen saturation above 92%. Primary hypertension Continue lisinopril 5 mg daily, Toprol 100 mg daily Nodular lymphocyte predominant Hodgkin lymphoma (CMS/HCC) s/p multiple rounds chemoradiation with multiple radiation related complications including restrictive lung disease, pneumonitis, recurrent pneumonia, and neuropathy History of pulmonary embolism Patient reported hemoptysis this morning. Hold Xarelto, continue heparin infusion Uncomplicated asthma Continue albuterol as needed Pulmonary hypertension (CMS/HCC) Mild pulmonary hypertension mPAP 22, PVR 1.74 morillo, pcwp 4, CO 7.48 L/min based on RHC at [facility] 02/2024 multifactorial in the setting of history of PE, mediastinal radiation and post radiation fibrosis, bronchiectasis VTE Prophylaxis: IV heparin Scheduled Meds aspirin, 81 mg, oral, Daily cholecalciferol, 1,000 Units, oral, Daily clopidogrel, 75 mg, oral, Daily DULoxetine, 30 mg, oral, Nightly gabapentin, 600 mg, oral, TID levothyroxine, 75 mcg, oral, Daily before breakfast lisinopril, 5 mg, oral, Daily [START ON 07/08/2024] metoprolol succinate XL, 100 mg, oral, Daily pantoprazole, 40 mg, oral, Nightly rivaroxaban, 10 mg, oral, Daily with evening meal rosuvastatin, 20 mg, oral, Daily umeclidinium-vilanteroL, 1 puff, inhalation, Daily Pertinent Investigations Hematology: Results from last 7 days Lab Units 07/07/24 0608 07/06/24 0818 WBC AUTO 10*3/uL 15.08* 8.41 HEMOGLOBIN g/dL 13.6 14.5 HEMATOCRIT % 41.5 43.8 MCV fL 95.6 94.2 PLATELETS AUTO 10*3/uL 304 336 Chemistry: Results from last 7 days Lab Units 07/07/24 0608 07/06/24 0818 SODIUM mmol/L 141 140 POTASSIUM mmol/L 4.6 4.4 CHLORIDE mmol/L 107 106 CO2 mmol/L 31 28 BUN mg/dL 10 7 CREATININE mg/dL 0.62 0.62 GLUCOSE mg/dL 113* 150* CALCIUM mg/dL 8.8 9.0 No lab exists for component: AFIO2 , APHT , APCOT , APOT , ATCO2 , CK , ALB , IBILI Historical Values: (Includes values prior to this admission) Lab Results Component Value Date HDL 57 07/06/2024 LDL 168 07/06/2024 No results found for: [id number] , IRON , TIBC , C3 , C4 , CAL , CANCA , ASO , PSA , CEA , CA125 , CA199 , AFP , CA153 Imaging XR chest 1 view Narrative: XR CHEST 1 VIEW 07/07/2024 8:23 AM CLINICAL INDICATIONS: Wheezing COMPARISON: None FINDINGS: Portable AP upright view. Perihilar strandy opacities. Diffuse interstitial prominence. Trace left pleural effusion. No pneumothorax. Cardiac silhouette is within normal limits. There is mild obscuration of the left hemidiaphragm. Impression: Pulmonary vas (more content not included)... [facility] 07-07-2024 Note 07/07/24 1046 Admission Assessment Questions Verify insurance with patient Yes Do you understand medical disease or what brought you into the hospital? Yes Who is your current PCP? Bee Vail Can I schedule a follow up appointment for you at the time of discharge? Yes Do you understand why you are taking your current medications? Yes Are you taking your medications as prescribed? Yes Did patient provide teach back? Yes Pharmacy Bedside Delivery Status Interested Does the patient have a manager business planning assigned to them through their insurance? No Living Arrangement (Current/Prior to Hospitalization) Private residence Does the patient have history of HHC or SNF? No Assistive Device Oxygen (O2 2-3L with [employer]) Patient's goal for discharge return home with family Was patient reminded that goal for discharge is 11am? Yes Does the patient have transportation at discharge? Yes Type of Residence Private residence Is PT/OT appropriate? No Is PT/OT ordered? No Is SW consult appropriate? No Is SW consult ordered? No Do you understand the benefits of MyChart? Yes Were you able to send link and activate [employer]hart? MyChart already active [facility] 07-07-2024 Note Attestation signed by Anil Sweet MD at 07/15/2024 1:11 AM By using the attestations below, the signing clinician agrees that I have read and verify that the documentation has been personally reviewed by me and ensure that the documentation accurately reflects the encounter. GC: I performed the osorio portion(s) of the service and participated in the management and confirm the resident's documentation. Please note there may be an additional personal documentation from me. Cardiology Progress Note Subjective Subjective: Celso Weller was seen and examined at bedside. No acute events noted since last cardiology evaluation. Sinus tachycardia noted; patient reports she associates this with baseline anxiety which has been exacerbated while inpatient. Tolerated cath and PCI yesterday without complication. Radial access site healing appropriately. Denies chest pain, palpitations, dyspnea, nausea, diaphoresis. Objective: Patient Vitals for the past 24 hrs: BP Temp Temp src Pulse Resp SpO2 07/07/24 0710 104/62 36.1 ???C (97 ???F) Temporal (!) 123 21 (!) 65 % 07/07/24 0637 115/70 -- -- (!) 128 (!) 30 100 % 07/07/24 0400 97/78 36 ???C (96.8 ???F) Temporal (!) 112 21 100 % 07/07/24 0000 95/73 -- -- 106 14 100 % 07/06/24 2331 97/68 -- -- 101 14 99 % 07/06/24 2230 86/60 -- -- 104 15 -- 07/06/24 2130 88/64 -- -- 102 14 -- 07/06/24 2030 90/61 -- -- 104 15 -- 07/06/24 1934 92/63 36.7 ???C (98 ???F) Temporal 108 21 99 % 07/06/24 1905 89/69 -- -- 110 18 100 % 07/06/24 1730 105/66 -- -- -- -- -- 07/06/24 1711 -- -- -- -- -- 97 % 07/06/24 1700 117/76 -- -- -- -- -- 07/06/24 1645 112/72 -- -- 108 13 91 % 07/06/24 1630 104/68 -- -- 108 19 (!) 89 % 07/06/24 1615 101/76 -- -- 106 19 97 % 07/06/24 1520 94/68 -- -- 104 16 97 % 07/06/24 1411 -- -- -- -- -- 98 % 07/06/24 1410 -- -- -- 110 16 98 % 07/06/24 0825 110/84 36.1 ???C (97 ???F) Temporal (!) 114 20 (!) 89 % Physical Examination: GENERAL: AOx3, in no acute distress. HEAD: Atraumatic, normocephalic. EYES: PERRLA, EOMI. NECK: No JVD present. CARDIAC: Sinus tach. Radial access site healing appropriately. No murmur, rubs, or gallops. RESPIRATORY: CTAB, no increased effort of breathing. ABDOMEN: Soft, nontender, nondistended. EXTREMITIES: No lower extremity edema, peripheral pulses are 2+ bilaterally. NEURO: No focal deficits Relevant Lab Results Encounter Date: 07/06/24 ECG 12 lead Result Value Ventricular Rate 106 Atrial Rate 106 AK Interval 162 QRS DURATION 100 QT Interval 336 QTC CALCULATION(BAZETT) 446 P Fulton 54 R-Fulton -27 T Wave F[place] 8 Impression Sinus tachycardia Minimal voltage criteria for LVH, may be normal variant ( [place] product ) Cannot rule out Anterior infarct , age undetermined Inferior infarct (cited on or before 06-JUL-2024) Abnormal ECG When compared with ECG of 06-JUL-2024 09:29, No significant change was found Confirmed by Temo Hdz ([id number]) on 07/06/2024 7:52:26 PM No results found for: CKTOTAL , CKMB , CKMBINDEX , TROPONINI Complete Echo (TTE) w/wo Imaging Agent, Strain, 3D, Bubble Study Result Date: 07/06/2024 1 1 [facility] Heart Station [address] [place] [address] [phone] (fax) Echocardiogram-[facility] Name: CELSO WELLER Study Date: 07/06/2024 03:45 PM B/P: 94 mmHg/68 mmHg HR: 103 bpm Date of : 1980 Location: [facility] Height: 72 in. Age: 43 year(s) Patient [...] LV Mass Index, 2D ASE 66.8 g/m?? (44g (more content not included)... [facility] 07-06-2024 Note Patient: Celso Weller Procedure Information Date/Time: 07/06/24 1200 Procedure: Coronary angiography Location: [facility] [employer] 2 BIPLANE / [facility] (Cath) Providers: Sherly Dang MD Clinical information reviewed: Tobacco Allergies Meds Med Hx Surg Hx Fam Hx Soc Hx Physical Exam Airway Mallampati: III TM distance: >3 FB Neck ROM: full Cardiovascular Rhythm: regular Dental Pulmonary Breath sounds clear to auscultation Abdominal (+) obese Abdomen: soft Anesthesia Plan ASA 3 (Moderate sedation) Anesthetic plan and risks discussed with patient. Use of blood products discussed with patient who consented to blood products. Plan discussed with fellow and attending. Additional Equipment Requests [facility] 07-06-2024 Note H&P reviewed. The pa genia was examined and there are no changes to the H&P. Will proceed with coronary angiogram for further assessment. Procedure's details, risks and benefits discussed with the patient and she's agreeable. [facility] 07-06-2024 Note Patient was started on IV heparin cardiology saw patient who planned to do left heart cath will follow [facility] 07-06-2024 Note Metoprolol [facility] 07-06-2024 Note [facility] control and as [facility] Currently on IV hepa rin resume DOAC post procedure [facility] 07-06-2024 Note Bronchodilators [facility] 07-06-2024 Note Stable [facility] 07-06-2024 Note Hospital Medicine History and Physical 07/06/2024 11:19 AM THE HOSPITALIST TEAM PREFERS TO USE [employer] (T[employer]) FOR NON-URGENT COMMUNICATION 7AM-7PM. IF I DO NOT RESPOND WITHIN 20 MINUTES OR URGENT MATTERS, PLEASE CALL THROUGH THE MASTER [employer]ER. FROM 7PM-7AM, PLEASE PAGE [phone](COVR). Chief Complaint No chief complaint on file. History of Present Illness Celso Weller is an 43 y.o. female accepted from [facility] past medical history of Hodgkin lymphoma diagnosed 01/16/2012 status post autologous SCT also underwent palliative radiation to spleen liver and lymph nodes in April 2020 history of bronchiectasis without complication chronic respiratory failure with hypoxia and pulm hypertension currently on Xarelto for history of pulmonary embolism presented to the ER with sharp nonradiating substernal chest pain associated with nausea and shortness of breath patient was noted to have sinus tachycardia notable labs include troponin 641 patient has history of 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 Hospital Secretary was consulted who plan to take patient for heart catheterization patient denies any increased cough hemoptysis dizziness lightness syncope no fever chills no sore throat no sinus trouble Review of System and Physical Exam Temp: [36 ???C (96.8 ???F)] 36 ???C (96.8 ???F) Heart Rate: [109] 109 Resp: [18] 18 BP: (129)/(84) 129/84 Physical Exam Vitals reviewed. Constitutional: Appearance: Normal appearance. HENT: Head: Normocephalic and atraumatic. Right Ear: Tympanic membrane, ear canal and external ear normal. Left Ear: Tympanic membrane, ear canal and external ear normal. Nose: Nose normal. Mouth/Throat: Mouth: Mucous membranes are moist. Pharynx: Oropharynx is clear. Eyes: Pupils: Pupils are equal, round, and reactive to light. Cardiovascular: Rate and Rhythm: Normal rate and regular rhythm. Heart sounds: Normal heart sounds. Pulmonary: Breath sounds: Normal breath sounds. Abdominal: General: Abdomen is flat. Bowel sounds are normal. Palpations: Abdomen is soft. Musculoskeletal: General: Normal range of motion. Cervical back: Normal range of motion and neck supple. Skin: General: Skin is warm and dry. Neurological: Mental Status: She is alert and oriented to person, place, and time. Psychiatric: Behavior: Behavior normal. Review of Systems Constitutional: Positive for activity change and fatigue. HENT: Negative. Eyes: Negative. Respiratory: Positive for shortness of breath. Cardiovascular: Positive for chest pain. Gastrointestinal: Negative. Endocrine: Negative. Genitourinary: Negative. Musculoskeletal: Negative. Neurological: Negative. Hematological: Negative. Psychiatric/Behavioral: Negative. Assessment and Plan Assessment & Plan NSTEMI (non-ST elevated myocardial infarction) ([facility]/HCC) Patient was started on IV heparin cardiology saw patient who planned to do left heart cath will follow Chest pain Pain control and as above Primary hypertension Metoprolol Nodular lymphocyte predominant Hodgkin lymphoma (CMS/HCC) Stable History of pulmonary embolism Currently on IV heparin resume DOAC post procedure Uncomplicated asthma Bronchodilators Full code VTE Prophylaxis: IV heparin ----- Focus of this inpatient stay will remain on problems that need acute care setting for care. We will review available studies and will order additional labs, imaging and other studies as appropriate. As needed medicines are ordered as appropriate. VTE Prophylaxis will be ordered as appropriate. Please see above for management plan for individual hospital problems. Home medications are reviewed and will be continued as appropriate. Patient will be continued to be followed during this hospital stay by a member of [facility]. Past Medical History History reviewed. No pertinent past medical history. Past Surgical History History reviewed. No pertinent surgical history. Social History Social History Socioeconomic History Marital status: Single Spouse name: Not on file Number of children: Not on file Years of education: Not on file Highest education level: Not on file Occupational History Not on file Tobacco Use Smoking status: Former Types: Cigarettes Smokeless tobacco: Never Substance and Sexual Activity Alcohol use: Not on file Drug use: Not on file Sexual activity: Not on file Other Topics Concern Not on file Social History Narrative Not on file Social Determinants of Health Financial Resource Strain: Low Risk (07/06/2024) Overall Financial Resource Strain (CARDIA) Difficulty of Paying Living Expenses: Not very hard Food Insecurity: No Food Insecurity (07/06/2024) Hunger Vital Sign Worried About Running Out of Food in the Last Year: Never true Ran Out of Food in the Last Year: Not on file Transportation Needs: No Transportation Needs ( (more content not included)... [facility] 06-25-2024 Telephone encounter Note [facility] and [facility]. All prescriptions have been APPROPRIATELY filled. No suspicious activity was identified. 06/25/2024 by Irene Han APRN.FORM RAISER Rx sent Irene Han APRN.CNP [facility] 06-25-2024 Miscellaneous Notes [facility] checked and validated. All prescriptions have been APPROPRIATELY filled. No suspicious activity was identified. 06/25/2024 by Irene Han APRN.FORM RAISER Rx sent Irene Han APRN.CNP Last ordered: 05/29 (30 days) Last appointment 04/23 The following prescription(s) will be transmitted electronically to [facility] upon approval. Patient has been notified. Requested Prescriptions Pending Prescriptions Disp Refills oxyCODONE IR (ROXICODONE) 10 mg tab 90 tablet 0 Sig: Take 1 tablet by mouth every 8 hours as needed for pain for up to 30 days. Future Appointments Date Time Provider Department Center 07/29/2024 1:30 PM 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 APRN.PEDRO Lugo [facility] 07/30/2024 10:00 AM [facility] 9:45 AM LAB ADAM ARTIS QUIRINOALINA [facility] 08/03/2024 10:00 AM Ruperto Ledezma MD HEMASA Tn Steff documented in this encounter [facility] 06-25-2024 Telephone encounter Note Last ordered: 05/29 (30 days) Last appointment 04/23 The following prescription(s) will be transmitted electronically to [facility] upon approval. Patient has been notified. Requested Prescriptions Pending Prescriptions Disp Refills oxyCODONE IR (ROXICODONE) 10 mg tab 90 tablet 0 Sig: Take 1 tablet by mouth every 8 hours as needed for pain for up to 30 days. Future Appointments Date Time Provider Department [place] 07/29/2024 1:30 PM 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 APRN.PEDRO Lugo [facility] 07/30/2024 10:00 AM Irene Han APRN.PEDRO ONEALMarianne QiuDudley [facility] 08/03/2024 9:45 AM MAYELIN ARTIS MELINDA [facility] 08/03/2024 10:00 AM Ruperto Ledezma MD HEMASA Tn Steff [facility] 06-24-2024 Telephone encounter Note Follow up scheduled. [facility] 06-24-2024 Miscellaneous Notes Follow up scheduled. [facility] 05/12/24 ([facility]) NOV needs to be scheduled Requested Prescriptions Pending Prescriptions Disp Refills ANORO ELLIPTA 62.5-25 mcg/actuation inhaler [Pharmacy Med Name: ANORO ELLIPTA 62.5-25 MCG INH] 60 each 1 Sig: INHALE 1 INHALATION INSTRUCTED ONCE DAILY. documented in this encounter [facility] 06-24-2024 Telephone encounter Note KENN 05/12/24 ([facility]) NOV needs to be scheduled Requested Prescriptions Pending Prescriptions Disp Refills ANORO ELLIPTA 62.5-25 mcg/actuation inhaler [Pharmacy Med Name: ANORO ELLIPTA 62.5-25 MCG INH] 60 each 1 Sig: INHALE 1 INHALATION INSTRUCTED ONCE DAILY. [facility] 06-09-2024 Telephone encounter Note Chart notes from 01/21/2024 faxed over to [facility] with confirmation. [facility] 06-09-2024 Miscellaneous Notes Chart notes from 01/21/2024 faxed over to [facility] with confirmation. I placed the order for the CPAP on behalf of Dr. Mora who saw her for PH so will need to send his notes as well. Will forward encounter to provider in regard to noting BRIAN in her chart notes as I do not see any previous pulmonary notes regarding the pt's BRIAN. Falguni from [facility] is calling 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 APRN.FORM RAISER today to request office notes prior to the sleep study. Stated she received the 05.12.24 notes, but doesn't mention anything regarding the BRIAN. Please advise. Fax number: [phone] Patient has been identified by name and birthdate. Duration of symptoms: N/A Person calling: Falguni Montes De Oca at: [phone] Was an appointment scheduled: No Closing statement: Results or non-symptom based questions: Thank you for calling [facility], your call will be returned within the next business day. Thank you, Valeria Garg documented in this encounter [facility] 06-09-2024 Miscellaneous Notes Faxed neb supply order to [facility] w/ confirmation via [employer]. Faxed Dr. BREWER office visit notes to [facility] via [employer]. Called [facility] to get fax number ([phone]) Pended neb supply order. documented in this encounter [facility] 06-09-2024 Telephone encounter Note Faxed neb supply order to [facility] w/ confirmation via [employer]. [facility] 06-09-2024 Telephone encounter Note Faxed Dr. BREWER office visit notes to [facility] via [employer]. Called medicine [facility] to get fax number ([phone]) Pended neb supply order. [facility] 06-09-2024 Telephone encounter Note I placed the order for the CPAP on behalf of Dr. Mora who saw her for PH so will need to send his notes as well. [facility] 06-08-2024 History of Present illness Narrative [...] really helping Mentioned this to palliative care [facility] Takes ativan daily at least Insomnia On [...] to 20 mg Talked to palliative care [facility] - suggested trial of cymbalta Will transition [...] lymphoma, unspecified body region (CMS/HCC) Sees oncology Stable Monitor She is on [...] up with this patient on a continued food counselor basis to monitor and treat the above listed problems as well as their other chronic illnesses as part of a longitudinal care plan documented in this encounter [facility] 06-04-2024 Telephone encounter Note Will forward encounter to provider in regard to noting BRIAN in her chart notes as I do not see any previous pulmonary notes regarding the pt's BRIAN. [facility] 06-04-2024 Telephone encounter Note Falguni from [facility] is calling 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 APRN.CNP today to request office notes prior to the sleep study. Stated she received the 05.12.24 notes, but doesn't mention anything regarding the BRIAN. Please advise. Fax number: [phone] Patient has been identified by name and birthdate. Duration of symptoms: N/A Person calling: Falguni Call Falguni at: [phone] Was an appointment scheduled: No Closing statement: Results or non-symptom based questions: Thank you for calling [facility], your call will be returned within the next business day. Thank you, Valeria Garg [facility] 06-04-2024 Telephone encounter Note Images from the original note were not included. Pt's cpap /pap supply order, demographics, most recent chart notes, and most recent PFTs faxed to the pt's DME with confirmation. Pt notified via [employer] to contact their DME to check on the status of their order. [facility] 06-04-2024 Miscellaneous Notes Images from the original note were not included. Pt's cpap /pap supply order, demographics, most recent chart notes, and most recent PFTs faxed to the pt's DME with confirmation. Pt notified via [employer] to contact their DME to check on the status of their order. documented in this encounter [facility] 05-29-2024 History of Present illness Narrative [...] PATIENT PRESENTS WITH AN IMPLANTABLE OR ATTACHED BULLET ASSEMBLY PRESS OPERATOR: No RADIOLOGY DEPARTMENT: General X-ray: Exam(s) Completed: Chest X-Ray PERIPHERAL IV DATA: Not applicable SIGNED BY: RT Anaya(R) May 29, 2024 8:56 AM documented in this encounter [facility] 05-20-2024 Telephone encounter Note Pt's cpap /bipap order, demographics, most recent chart notes, and most recent PFTs faxed to the pt's DME with confirmation. Pt notified via [employer]alytics to contact their DME to check on the status of their order. [facility] 05-20-2024 Miscellaneous Notes Pt's cpap /bipap order, demographics, most recent chart notes, and most recent PFTs faxed to the pt's DME with confirmation. Pt notified via [employer] to contact their DME to check on the status of their order. Addended by: KYLIE MILLER on: 05/20/2024 01:12 PM Modules accepted: Orders Please send CPAP to the company that she currently gets her O2 from documented in this encounter [facility] 05-20-2024 Note Addended by: KYLIE MILLER on: 05/20/2024 01:12 PM Modules accepted: Orders [facility] 05-20-2024 Telephone encounter Note Please send CPAP to the company that she currently gets her O2 from [facility] 05-12-2024 History of Present illness Narrative Images from the original note were not included. [facility] ESTABLISHED PATIENT OFFICE VISIT May 12, 2024 My final reccommendations will be communicated back to the requesting physician by way of shared medical record or US mail. The patient consented to the use of Viewglass software for draft documentation of the visit consistent with [facility] s Notice of Privacy Practices. ASSESSMENT/PLAN: [...] chills. Electronically signed by 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 APRN.CNP [facility] May 12, 2024 8:46 AM Time Spent: [...] 10/14/2013 12/21/2013 03/11/2014 Haemophilus influenzae b-meningococcal bivalent (Nkl-LxgWV-IE) vaccine (MENHIBRIX) 10/14/2013 diphtheria tetanus (DT) vaccine, [...] Collected: 01/15/2024 9:13 AM (Final result) Narrative: [facility] [address] [place] [address] Test Date: 2024-01-15 Pat Name: CELSO WELLER Department: Room: Gender: Female Event Promoter: : 1980 Requested By: Order Number: [id number] Reading MD: Maxi Valdez MD Interpretive Statements [...] 14:32:54 EST by Maxi Valdez MD ID: [id number] Name: CELSO WELLER Race: White Ht: 70.87 in Wt: 218.26 lbs Age: 43 Gender: Female : 1980 Dx: Acute respiratory failure with hypoxia Smoking Hx: Non-smoker Doctor: KYLIE MILLER Test Date: 01/15/2024 Site: Tech: Perla Powell PRE-BRONCH POST-BRONCH Pre LLN Pred ULN %Pred Post %Pred %Chg SPIROMETRY FVC (L) 2.07 3.39 4.46 5.55 46 FEV1 (L) 1.72 2.72 3.61 4.45 47 FEV1/FVC 0.83 0.70 0.81 0.90 102 PEF L/s (L/sec) 6.27 5.96 8.06 10.16 77 FEF50 (L/sec) 3.18 2.74 4.34 5.95 73 FIF50 (L/sec) 3.59 FEF50/FIF50 0.88 90-100 FIVC (L) 2.07 VGP75-00 (L/sec) 2.02 2.16 3.60 5.34 56 Time [...] 81 83 FEV1/FVC POST (%) % 84 FIH92-83% PRE (L/S) L/S 1.76 2.02 NUO68-19% POST (L/S) L/S 2.24 PEF PRE (L/S) [...] VUONG MD... Recent Results (from the past 55502 hours) ECHO Collection Time: 01/08/24 8:01 AM [...] 2024 This note was partially generated using [employer] voice recognition system, and there may be some incorrect words, spellings, and punctuation that were not noted in checking the note before saving. documented in this encounter [facility] 05-08-2024 History of Present illness Narrative [...] PATIENT PRESENTS WITH AN IMPLANTABLE OR ATTACHED BULLET ASSEMBLY PRESS OPERATOR: No RADIOLOGY DEPARTMENT: Ultrasound PERIPHERAL IV DATA: Not applicable SIGNED BY: Michelle Drew RDMS May 08, 2024 8:05 PM documented in this encounter [facility] 05-08-2024 Note HNO ID: [id number] Author: MICHELLE DREW RDMS Service: ? Author [...] PATIENT PRESENTS WITH AN IMPLANTABLE OR ATTACHED BULLET ASSEMBLY PRESS OPERATOR: No RADIOLOGY DEPARTMENT: Ultrasound PERIPHERAL IV DATA: Not applicable SIGNED BY: Michelle Drew RDMS May 08, 2024 8:05 PM [facility] 05-07-2024 Telephone encounter Note Pls schedule USG chest on day of visit with SARAH on 05/12 to assess the fluid status Thanks Jani Carver MD [facility] 05-07-2024 Miscellaneous Notes Pls schedule USG [...] symptoms get worst she would come to [place] [facility]. Pt wanted to know if Dr. Carver wanted any further imaging, or when should next imaging be scheduled. Will route to Dr. Carver. Patient calling in as instructed below but she does not know why she needs an appointment. Please call patient to advise documented in this encounter [facility] 05-06-2024 Telephone encounter Note Thanks for [...] symptoms get worst she would come to [place] [facility]. Pt wanted to know if Dr. Carver wanted any further imaging, or when should next imaging be scheduled. Will route to Dr. Carver. [facility] 05-05-2024 Telephone encounter Note Patient calling in as instructed below but she does not know why she needs an appointment. Please call patient to advise [facility] 05-04-2024 Telephone encounter Note Called and [...] plan of care. Will route to provider. [facility] 05-04-2024 Miscellaneous Notes Called and spoke [...] feeling over weekend. documented in this encounter [facility] 05-04-2024 Telephone encounter Note Pt informed of BRM message, once verified, using 2 patient identifiers. Patient agrees to notify bench inspector and denies any questions, needs or concerns at this time. Appointment verified. Jeny Nava RN [facility] 05-04-2024 Miscellaneous Notes Pt informed of BRM message, once verified, using 2 patient identifiers. Patient agrees to notify bench inspector and denies any questions, needs or concerns at this time. Appointment verified. Jeny Nava RN documented in this encounter [facility] 05-04-2024 History of Present illness Narrative [...] PATIENT PRESENTS WITH AN IMPLANTABLE OR ATTACHED BULLET ASSEMBLY PRESS OPERATOR: No RADIOLOGY DEPARTMENT: General X-ray: Exam(s) Completed: Chest X-Ray PERIPHERAL IV DATA: Not applicable SIGNED BY: RT Anaya(R) May 04, 2024 10:48 AM documented in this encounter [facility] 05-04-2024 Telephone encounter Note Called and LVMx1 for pt. Instructed pt to call us back. Was hoping to triage pt and see how she was feeling over weekend. [facility] 05-03-2024 History of Present illness Narrative PATIENT NAME: Celso Weller DATE: 05/04/2024 PRIMARY CARE PHYSICIAN: Bee Vail MD OTHER PHYSICIANS: Dr. Cyn Hernandez; Dr. Gurpreet Unger; Irene Han CNP ([facility] Pall Med), Dr. Jane Del Valle ([facility] Rad Onc), Dr. Jani Carver ([facility] Pulmonary), Dr Radha Gamez ([facility] Dermatology) Portions of this encounter note have [...] February 2024 and was briefly hospitalized at [facility]. She initially improved with antibiotics, but since [...] C No.3 (B COMPLEX PLUS VITAMIN C) 08-82-66-5-300 mg cap Take 1 tablet by mouth [...] FDG avid neoplastic process. 04/02/2023 Chest x-ray ([facility]) Airspace opacities in the medial [...] left pleural effusion. She will contact her bench inspector for follow-up. 4. History of pulmonary embolism [...] Ruperto Ledezma MD documented in this encounter [facility] 05-01-2024 Telephone encounter Note Keep as scheduled. Ellyn Manuel APRN.FORM RAISER [facility] Work Phone: 05-01-2024 Miscellaneous Notes Keep as scheduled. Ellyn Manuel APRN.FORM RAISER Patient cancelled her appointment for PET Scan and has not rescheduled. Patient has appointment with brm on Saturday for follow up pet and labs. Should we reschedule? documented in this encounter [facility] 05-01-2024 Telephone encounter Note Patient cancelled her appointment for PET Scan and has not rescheduled. Patient has appointment with brm on Saturday for follow up pet and labs. Should we reschedule? [facility] 04-24-2024 Telephone encounter Note PET scan has been cancelled. Kathryn Purvis [facility] 04-24-2024 Miscellaneous Notes PET scan has been cancelled. Kathryn Purvis Please cancel patient's PET scan scheduled for this month. I will see her as scheduled for her appointment. documented in this encounter [facility] 04-23-2024 Telephone encounter Note Please cancel patient's PET scan scheduled for this month. I will see her as scheduled for her appointment. [facility] Work Phone: 04-23-2024 History of Present [...] Doesn't feel excited about anything. Modified ESAS ([place] Symptom Assessment Scale) Information Provided By: Patient [...] activity was identified. 04/23/2024 by Irene Han APRN.FORM RAISER Urine Screen Lab Results Component Value Date [...] Urine pH, Pain Ocasio 6.3 02/24/2021 Specific Star,Ur Pain Ocasio 1.012 02/24/2021 Oxidants,Ur 46 02/24/2021 [...] need to be set up at [facility]. 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 While every effort was made to correct voice recognition errors, kindly be aware that some errors may occasionally occur. documented in this encounter [facility] 04-20-2024 Telephone encounter Note Summary: Appointment Confirmation Called patient to confirm her iCPET with Dr. Lopez on 04/29 at 1pm. No answer, left VM. Carlo Medellin Clinical Event Promoter [facility] 04-20-2024 Miscellaneous Notes Summary: Appointment Confirmation Called patient to confirm her iCPET with Dr. Lopez on 04/29 at 1pm. No answer, left VM. Carlo Medellin Clinical Event Promoter [facility] documented in this encounter [facility] 04-20-2024 Telephone encounter Note [facility] 01/21/24 NOV Needs to be scheduled Requested Prescriptions Pending Prescriptions Disp Refills ANORO ELLIPTA 62.5-25 mcg/actuation inhaler [Pharmacy Med Name: ANORO ELLIPTA 62.5-25 MCG INH] 60 Each 1 Sig: INHALE 1 INHALATION INSTRUCTED ONCE DAILY. [facility] 04-20-2024 Miscellaneous Notes [facility] 01/21/24 NOV Needs to be scheduled Requested Prescriptions Pending Prescriptions Disp Refills ANORO ELLIPTA 62.5-25 mcg/actuation inhaler [Pharmacy Med Name: ANORO ELLIPTA 62.5-25 MCG INH] 60 Each 1 Sig: INHALE 1 INHALATION INSTRUCTED ONCE DAILY. documented in this encounter [facility] 04-13-2024 Telephone encounter Note Pt called and made aware that Kylie approved handicap placard script. Pt's address verified and she is made aware that it could take up to 5-7 business days to receive handicap placard order via mail. Pt verbalized understating with no further questions. Pt's handicap placard script placed in mail messenger to be mailed to pt's home address listed on file. [facility] 04-13-2024 Miscellaneous Notes Pt called and made aware that Kylie approved handicap placard script. Pt's address verified and she is made aware that it could take up to 5-7 business days to receive handicap placard order via mail. Pt verbalized understating with no further questions. Pt's handicap placard script placed in mail messenger to be mailed to pt's home address listed on file. documented in this encounter [facility] 04-08-2024 History of Present illness Narrative Celso Weller returns to the office today and notes that she had pneumonia last month and went to the hospital. She had fever at that time. She has 12/23 pneumococcal subtiters protective. She had recent CXR at [facility] and was inpatient for one night on [...] chronic rhinitis - nasal ipratropium [facility] [place]. I explained that no allergen avoidance measures are necessary and we agreed to try nasal ipratropium for her chronic rhinitis. Pneumonia - I provided reassurance regarding her normal immunologic evaluation and suggested she follow up in the Pulmonary Clinic for further discussion of her recurrent episodes of pneumonia. Follow-up is arranged on an as needed basis. documented in this encounter [facility] 04-07-2024 Miscellaneous Notes Pharmacy requesting refills as follows: Last ordered 01/14/2024. Next scheduled follow up appointment 04/23/2024. Requested Prescriptions Pending Prescriptions Disp Refills cyclobenzaprine (FLEXERIL) 10 mg tablet [Pharmacy Med Name: CYCLOBENZAPRINE 10 MG TABLET] 90 tablet 2 Sig: TAKE 1 TABLET BY MOUTH THREE TIMES A DAY NEEDED FOR MUSCLE SPASM Kylie Mosher RN April 07, 2024 documented in this encounter [facility] 04-07-2024 Telephone encounter Note Pharmacy requesting refills as follows: Last ordered 01/14/2024. Next scheduled follow up appointment 04/23/2024. Requested Prescriptions Pending Prescriptions Disp Refills cyclobenzaprine (FLEXERIL) 10 mg tablet [Pharmacy Med Name: CYCLOBENZAPRINE 10 MG TABLET] 90 tablet 2 Sig: TAKE 1 TABLET BY MOUTH THREE TIMES A DAY NEEDED FOR MUSCLE SPASM Kylie Mosher RN April 07, 2024 [facility] 04-06-2024 Telephone encounter Note Please sign pended PET scan scheduled for 04/27/2024 Thank You! Edilma Song RN [facility] 04-06-2024 Miscellaneous Notes Please sign pended PET scan scheduled for 04/27/2024 Thank You! Edilma Song RN documented in this encounter [facility] 04-02-2024 Telephone encounter Note PDMP website checked and validated. All prescriptions have been APPROPRIATELY filled. No suspicious activity was identified. 04/02/2024 by Irene Han APRN.FORM RAISER Rx sent Irene Han APRN.FORM RAISER [facility] 04-02-2024 Miscellaneous Notes PDMP website checked and validated. All prescriptions have been APPROPRIATELY filled. No suspicious activity was identified. 04/02/2024 by Irene Han APRN.FORM RAISER Rx sent Irene Han APRN.FORM RAISER Patient Mycharts requesting refills as follows: Last ordered 03/05/2024. Next scheduled follow up appointment 04/23/2024. Requested Prescriptions Pending Prescriptions Disp Refills oxyCODONE IR (ROXICODONE) 10 mg tab 90 tablet 0 Sig: Take 1 tablet by mouth every 8 hours as needed for pain for up to 30 days. Kylie Mosher RN April 02, 2024 documented in this encounter [facility] 04-02-2024 Telephone encounter Note Patient Mycharts requesting refills as follows: Last ordered 03/05/2024. Next scheduled follow up appointment 04/23/2024. Requested Prescriptions Pending Prescriptions Disp Refills oxyCODONE IR (ROXICODONE) 10 mg tab 90 tablet 0 Sig: Take 1 tablet by mouth every 8 hours as needed for pain for up to 30 days. Kylie Mosher RN April 02, 2024 [facility] 04-01-2024 Miscellaneous Notes REPLACEMENT NEBULIZER DEVICE Nebulizer and supply given in office through [facility]. Patient given instructions on how to use and care for the nebulizer. [facility] or concerns regarding their nebulizer. Patient verbalized understanding with no further questions. I faxed purchase agreement to [facility] as followed: - replacement written on new purchase agreement form - old device SN #: [id number] written on form - attached copy of previous purchase agreement from 04/19/2023 - attached Demographics/ Insurance information Patient was provided a nebulizer on 04/19/2023 at [facility] by Carole Ruano. documented in this encounter [facility] 04-01-2024 Telephone encounter Note REPLACEMENT NEBULIZER DEVICE Nebulizer and supply given in office through [facility]. Patient given instructions on how to use and care for the nebulizer. [facility] with [facility] issues or concerns regarding their [facility]bul[facility]. Patient verbalized understanding with no further questions. I faxed purchase agreement to [facility] as followed: - replacement written on new purchase agreement form - old device SN #: [id number] written on form - attached copy of previous purchase agreement from 04/19/2023 - attached Demographics/ Insurance information [facility] 03-25-2024 Telephone encounter Note Patient was provided a nebulizer on 04/19/2023 at [facility] by Carole Ruano. [facility] 03-16-2024 Telephone encounter Note Summary: Care Coordination Called patient to schedule her iCPET for 04/29/[address] Lopez. Carlo Medellin Clinical Event Promoter [facility] 03-16-2024 Miscellaneous Notes Summary: Care Coordination Called patient to schedule her iCPET for 04/29/[address] Lopez. Carlo Medellin Clinical Event Promoter [facility] documented in this encounter [facility] 03-13-2024 Telephone encounter Note Rx sent [facility] 03-13-2024 Miscellaneous Notes Rx sent documented in this encounter [facility] 03-11-2024 History of Present illness Narrative Images [...] antihistamine , no flonase +mucinex Admitted to [facility] for Acute respiratory failure with hypoxia 02/29/2024 [...] up with this patient on a continued fpc basis to monitor and treat the above listed problems as well as their other chronic illnesses as part of a longitudinal care plan documented in this encounter [facility] 03-11-2024 Instructions Sheila Lin NP - 03/11/2024 8:00 AM EST Add Flonase nasal spray daily for PND/sinuses Increase lexapro to 20 mg (can take 15mg 1-1/2 tab for a week or so first to gradually increase) documented in this encounter [facility] 03-05-2024 Miscellaneous Notes PDMP website checked and validated. All prescriptions have been APPROPRIATELY filled. No suspicious activity was identified. 03/05/2024 by Irene Han APRN.FORM RAISER Rx sent Irene Han APRN.FORM RAISER Patient requesting refills as follows: Last ordered 02/11/2024. Next scheduled follow up appointment 04/23/2024. Requested Prescriptions Pending Prescriptions Disp Refills oxyCODONE IR (ROXICODONE) 10 mg tab 90 tablet 0 Sig: Take 1 tablet by mouth every 8 hours as needed for pain for up to 30 days. Kylie Mosher RN March 05, 2024 documented in this encounter [facility] 03-05-2024 Telephone encounter Note [facility] website checked and validated. All prescriptions have been APPROPRIATELY filled. No suspicious activity was identified. 03/05/2024 by Irene Han APRN.FORM RAISER Rx sent Irene Han APRN.FORM RAISER [facility] 03-05-2024 Telephone encounter Note Patient requesting refills as follows: Last ordered 02/11/2024. Next scheduled follow up appointment 04/23/2024. Requested Prescriptions Pending Prescriptions Disp Refills oxyCODONE IR (ROXICODONE) 10 mg tab 90 tablet 0 Sig: Take 1 tablet by mouth every 8 hours as needed for pain for up to 30 days. Kylie Mosher RN March 05, 2024 [facility] 02-27-2024 History of Present illness Narrative PALLIATIVE MEDICINE PROGRESS NOTE SERVICE DATE: 02/27/[address] Virtually; I have communicated my name and active licensure. The patient's identity and physical location were verified at the time of this visit. The patient or their legal international sales representative has been informed of the [...] and lymph nodes (April 2020) per Dr. Eligio, then to right mesenteric LN (March 2022). [...] confusion, oversedation, myoclonus. No constipation. Modified ESAS ([place] Symptom Assessment Scale) Information Provided By: Patient [...] activity was identified. 02/27/2024 by Irene Han APRN.FORM RAISER Urine Screen Lab Results Component Value Date [...] Urine pH, Pain Ocasio 6.3 02/24/2021 Specific Star,Ur Pain Ocasio 1.012 02/24/2021 Oxidants,Ur 46 02/24/2021 [...] would need to be set up at [facility]. 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 While every effort was made to correct voice recognition errors, kindly be aware that some errors may occasionally occur. documented in this encounter [facility] 02-27-2024 Telephone encounter Note Did reschedule appointment to a virtual appointment. And sent patient a MyChart message. Sarah Rojas February 27, 2024 8:55 AM [facility] 02-27-2024 Miscellaneous Notes Did reschedule appointment to a virtual appointment. And sent patient a MyChart message. Sarah Rojas February 27, 2024 8:55 AM documented in this encounter [facility] 02-24-2024 Telephone encounter Note Prescription filled 02/24/24. Closing this note [facility] 02-24-2024 Miscellaneous Notes Prescription filled 02/24/24. Closing this note Last OV: 01/21/2024 No f/u appt noted Patient phones requesting refills as follows: Requested Prescriptions Pending Prescriptions Disp Refills ANORO ELLIPTA 62.5-25 mcg/actuation inhaler [Pharmacy Med Name: ANORO ELLIPTA 62.5-25 MCG INH] 60 Each 1 Sig: INHALE 1 INHALATION INSTRUCTED ONCE DAILY. Please review and advise. Mitzi Han MA documented in this encounter [facility] 02-24-2024 Telephone encounter Note Last OV: 01/21/2024 No f/u appt noted Patient phones requesting refills as follows: Requested Prescriptions Pending Prescriptions Disp Refills ANORO ELLIPTA 62.5-25 mcg/actuation inhaler [Pharmacy Med Name: ANORO ELLIPTA 62.5-25 MCG INH] 60 Each 1 Sig: INHALE 1 INHALATION INSTRUCTED ONCE DAILY. Please review and advise. Mitzi Han MA [facility] 02-14-2024 History of Present illness Narrative February 14, 2024 Standing PSG Orders signed in the last 90 days None Future PSG Orders signed in the last 90 days Ordered Auth. provider POLYSOMNOGRAM (PSG) [[id number]] 01/21/24 Glendy Russ DO Assoc. diagnoses: Pulmonary [...] the proposed sleep study conforms to the AAS Practice Parameters for the Indications for Polysomnography and Related Procedures, or if the sleep study is indicated for other reasons. Indications for study: BRIAN suspected with comorbid medical or sleep disorders: Rwnknssm-ch-rhsctj pulmonary disease Sleep study to be performed: Split Study-Polysomnogram with PAP titration Special instructions: Split night study if AHI > 15. Start with 5 cmH2O then titrate per protocol Target REM/supine sleep Add EtCO2 or Transcutaneous CO2 if available HX of Pulmonary HTN Christiana Cimorelli Tech Sleep Medicine Staff Note: I have read the above protocol, edited as needed, and agree to the plan. Rosario Rasmussen DO, MASHA 2:21 PM, 02/14/2024 February 11, 2024 An order has been received for Polysomnogram (PSG) from Glendy Ames a B. [facility] Staff. Visit prep complete. Comments :No The sleep study is scheduled for 03/20. Insurance: Payor: AETNA MEDICARE / Plan: AETNA MEDICARE ASSURE HMO D SNP / Product Type: Medicare / Payer/Plan Subscr Sex Relation Sub. Ins. ID Effective Group Num 1. A[employer] MEDICAR* CELSO WELLER 1980 Female Self [id number] [birth year]23 [id number] 2. MEDICAID [place] -* CELSO WELLER R 1980 Female Self [id number] 02[birth year]20 [address] Nova Hernandez documented in this encounter [facility] 02-11-2024 Telephone encounter Note The following approved medication requests have been transmitted electronically. Requested Prescriptions Signed Prescriptions Disp Refills oxyCODONE IR (ROXICODONE) 10 mg tab 90 tablet 0 Sig: Take 1 tablet by mouth every 8 hours as needed for pain for up to 30 days. Authorizing Provider: IRENE HAN RN [facility] 02-11-2024 Miscellaneous Notes The following approved [...] activity was identified. 02/11/2024 by Irene Han APRN.FORM RAISER Rx sent Irene Han APRN.FORM RAISER Patient phones requesting refills as follows: Last ordered 01/14/24 Last visit on 12/26/23 Future appt 02/27/24 Requested Prescriptions Pending Prescriptions Disp Refills oxyCODONE IR (ROXICODONE) 10 mg tab 90 tablet 0 Sig: Take 1 tablet by mouth every 8 hours as needed for pain for up to 30 days. Please review and advise. Flori Cartagena RN documented in this encounter [facility] 02-11-2024 Telephone encounter Note PDMP website checked and validated. All prescriptions have been APPROPRIATELY filled. No suspicious activity was identified. 02/11/2024 by Irene Han APRN.FORM RAISER Rx sent Irene Han APRN.FORM RAISER [facility] 02-11-2024 Telephone encounter Note Patient phones requesting refills as follows: Last ordered 01/14/24 Last visit on 12/26/23 Future appt 02/27/24 Requested Prescriptions Pending Prescriptions Disp Refills oxyCODONE IR (ROXICODONE) 10 mg tab 90 tablet 0 Sig: Take 1 tablet by mouth every 8 hours as needed for pain for up to 30 days. Please review and advise. Flori Cartagena RN [facility] 01-24-2024 Telephone encounter Note Received message to schedule [facility]. Contacted patient and they elected SaturdayMarch 13. Will submit instructions via my chart. Thank You, Nia Salmeron [facility] 01-24-2024 Miscellaneous Notes Received message to schedule [facility]. Contacted patient and they elected SaturdayMarch 13. Will submit instructions via my chart. Thank You, Nia Salmeron documented in this encounter [facility] 01-21-2024 History of Present illness Narrative [...] mediastinal irradiation, extensive systemic therapy and ASCT (2014. S/p busulfan, etoposide, CyC) now felt to be in remission, restrictve lung disease and bronchiectasis, recurrent PE ([id number]) on Xarelto, hypothyroidism on stable dose of [...] alkylating agents bevacizumab, bortezomib, cocaine, antivirals, ponatinib, [place] wort) No H/O Venous Thromboembolism or PE? [...] C No.3 (B COMPLEX PLUS VITAMIN C) [id number] mg cap Take 1 tablet by mouth [...] Sclerosis Mother Coronary Artery Disease Maternal Grandfather [place] age 36 Coronary Artery Disease Paternal Grandfather [...] mortality COMPERA 2.0- Four Stratum Risk Assessment (KANDIS Yost et al. ERJ 2021; [id number]) Date Risk Score Therapy - - - [...] and documented today. Glendy Russ DO [facility] January 202:46 PM documented in this encounter [facility] 01-15-2024 History of Present illness Narrative [...] PATIENT PRESENTS WITH AN IMPLANTABLE OR ATTACHED BULLET ASSEMBLY PRESS OPERATOR: No CREATININE: Creatinine Date Value Ref Range [...] 10:46 PATIENT DISCHARGED TO: Ambulatory patient, left AR department area. Is this a therapy: No A Diagnostic radioactive procedure has taken place, with no further precautions necessary other than routine body substance precautions. More information regarding radiation safety can be found using this link: [email or web address] ear%[email or web address] SIGNATURE: DIMA Rushing) PATIENT NAME: Celso Weller DATE: January 15, 2024 TIME: 10:57 AM PAGER/CONTACT #: documented in this encounter [facility] 01-15-2024 Note HNO ID: [id number] Author: RADHA HAHN RT (R) Service: Nuclear [...] PATIENT PRESENTS WITH AN IMPLANTABLE OR ATTACHED BULLET ASSEMBLY PRESS OPERATOR: No CREATININE: Creatinine Date Value Ref Range [...] 10:46 PATIENT DISCHARGED TO: Ambulatory patient, left [place] department area. Is this a therapy: No A Diagnostic radioactive procedure has taken place, with no further precautions necessary other than routine body substance precautions. More information regarding radiation safety can be found using this link: [email or web address] [email or web address] 20Diagnostic%20Nuclear%20Medicine %20Procedures.pdf SIGNATURE: RT Сергей(R) PATIENT NAME: Celso Weller DATE: January 15, 2024 TIME: 10:57 AM PAGER/CONTACT #: [facility] 01-15-2024 History of Present illness Narrative PULM FUNCTION: Provider: Jani Carver MD Spirometry: 1 DLCO: 1 AB Oximetry - Ambulation: 1 6 MW: 1 documented in this encounter [facility] 01-15-2024 Procedure note Associated Ord er(s): [...] Supply Carrier Forehead 20 None NAME: Perla M JULIANO Powell PATIENT NAME: Celso Weller DATE: January 15, 2024 TIME: 10:19 AM Comment: [facility] 01-15-2024 Procedure note Associated Ord er(s): [...] Supply Carrier Forehead 20 None NAME: Perla Bryon JULIANO Powell PATIENT NAME: Celso Weller DATE: January 15, 2024 TIME: 10:19 AM Comment: documented in this encounter [facility] 01-14-2024 Telephone encounter Note PDMP website checked and validated. All prescriptions have been APPROPRIATELY filled. No suspicious activity was identified. 01/14/2024 by Irene Han APRN.FORM RAISER Rx sent Irene Han APRN.FORM RAISER [facility] 01-14-2024 Miscellaneous Notes PDMP website checked and validated. All prescriptions have been APPROPRIATELY filled. No suspicious activity was identified. 01/14/2024 by Irene Han APRN.FORM RAISER Rx sent Irene Han APRN.FORM RAISER Patient Mycharts requesting refills as follows: Last ordered 12/16/2023. Next scheduled follow up appointment 02/27/2024. Requested Prescriptions Pending Prescriptions Disp Refills oxyCODONE IR (ROXICODONE) 10 mg tab 60 tablet 0 Sig: Take 1 tablet by mouth two times a day as needed for pain for up to 30 days. Kylie Mosher RN January 14, 2024 documented in this encounter [facility] 01-14-2024 Telephone encounter Note Spoke with patient confirming arrival of 10:45. Explained test, length, no prep and confirmed / status. Patient is schedule in the morning at [facility] for pulmonary appointments and will come down as soon as she is done to see if we can do sooner than appointment for VQ. [facility] 01-14-2024 Miscellaneous Notes Spoke with patient confirming arrival of 10:45. Explained test, length, no prep and confirmed / status. Patient is schedule in the morning at [facility] for pulmonary appointments and will come down as soon as she is done to see if we can do sooner than appointment for VQ. documented in this encounter [facility] 01-14-2024 Telephone encounter Note Please let [...] pressures are accurately reflected My colleague from [place] has reviewed your case as well and the office will reach out to you with an appointment Please let me know if you have any additional questions Thank you Jani Carver MD [facility] 01-14-2024 Miscellaneous Notes Please let patient [...] pressures are accurately reflected My colleague from [place] has reviewed your case as well and [...] POSSIBLE diuretic trial documented in this encounter [facility] 01-14-2024 Telephone encounter Note Patient Mycharts requesting refills as follows: Last ordered 12/16/2023. Next scheduled follow up appointment 02/27/2024. Requested Prescriptions Pending Prescriptions Disp Refills oxyCODONE IR (ROXICODONE) 10 mg tab 60 tablet 0 Sig: Take 1 tablet by mouth two times a day as needed for pain for up to 30 days. Kylie Mosher RN January 14, 2024 [facility] 01-14-2024 Telephone encounter Note Patient Mycharts requesting refills as follows: Last ordered 12/09/2023. Next scheduled follow up appointment 02/27/2024. Requested Prescriptions Pending Prescriptions Disp Refills cyclobenzaprine (FLEXERIL) 10 mg tablet 60 tablet 0 Sig: Take 1 tablet by mouth two times a day as needed for muscle spasm. Kylie Mosher RN January 14, 2024 [facility] 01-14-2024 Miscellaneous Notes Patient Mycharts requesting refills as follows: Last ordered 12/09/2023. Next scheduled follow up appointment 02/27/2024. Requested Prescriptions Pending Prescriptions Disp Refills cyclobenzaprine (FLEXERIL) 10 mg tablet 60 tablet 0 Sig: Take 1 tablet by mouth two times a day as needed for muscle spasm. Kylie Mosher RN January 14, 2024 documented in this encounter [facility] 01-08-2024 Telephone encounter Note Plan: 01/06/24 [...] upon completion next week POSSIBLE diuretic trial [facility] 01-07-2024 Telephone encounter Note Message Received: Yesterday Jani Carver MD sent to P [facility] Pulm Nurse betty Harris fax my note to patient's pcp thanks KENN notes with Dr Carver 01/06/24 faxed to PCP via EPIC [facility] 01-07-2024 Miscellaneous Notes Message Received: Yesterday Jani Carver MD sent to P [facility] Pulm Nurse betty Harris fax my note to patient's pcp thanks KENN notes with Dr Carver 01/06/24 faxed to PCP via EPIC documented in this encounter [facility] 01-06-2024 History of Present illness Narrative Arterial documented in this encounter [facility] 01-06-2024 History of Present illness Narrative Celso Weller is a 43 year old female here for follow appointment for dyspnea, cough, post XRT related restrictive ventilatory defect and central bronchiectasis. She has history of HL status post chemoradiation, Auto BMT In 2013, pulmonary embolism, PjP pneumonia, hypoxic respiratory failure in 2014 We had last met about last month during her hospitalization at [place] for persistent dyspnea, cough and pulmonary infiltrates. [...] PFT: SPIROMETRY - BASELINE AND POST DILATOR ([id number]) - ordered on 03/28/23 PFT pending scheduled for next week Prior PFTs consistent with restrictive ventilatory defect Bronchoscopy results Blood Stool Urine Misc TM Order Specimen Date Collected Last Update Result Status CC FUNGAL CULTURE (NON DERMAL) [[id number]] Bronchoalveolar Lavage RUL 12/20/2023 1:53 PM 01/05/2024 11:01 PM No Fungus isolated after 16 days Preliminary result Add Me AFB CULT + STAIN [[id number]] Bronchoalveolar Lavage RUL 12/20/2023 1:53 PM 01/04/2024 7:01 AM Culture, Afb: No Acid Fast Bacilli isolated after 14 days Afb Stain: No acid fast bacilli seen by flurochrome stain Preliminary result Add Me ASPERGILLUS GALACTOMANNAN BAL [[id number]] Bronchoalveolar Lavage RUL 12/20/2023 1:53 PM 12/24/2023 [...] Final result BRONCHOSCOPY CULTURE AND GRAM STAIN [[id number]] Bronchoalveolar Lavage RUL 12/20/2023 1:53 PM 12/23/2023 9:58 AM Culture, Bronch: No growth 2 days Gram Stain: No organisms seen Rare Polymorphonuclear leukocytes Gram stain performed on cytospun specimen. Final result LEGIONELLA SPECIES PCR [[id number]] Bronchoalveolar Lavage RUL 12/20/2023 1:53 PM 12/22/2023 11:27 AM Not detected >>NOTE Final result PNEUMOCYSTIS JIROVECII PCR [[id number]] Bronchoalveolar Lavage RUL 12/20/2023 1:53 PM 12/21/2023 12:00 PM Not detected >>NOTE Final result EXPANDED RESPIRATORY PATHOGEN PANEL BY PCR, ROUTINE [[id number]] Bronchoalveolar Lavage RUL 12/20/2023 1:53 PM 12/20/2023 [...] & INFLUENZA A/B & RSV PCR, EXPEDITED [[id number]] Nasopharynx 12/18/2023 7:35 PM 12/18/2023 8:19 PM Sars-Cov-2 (Agent Of Covid-19) Rna: Not detected Influenza A Rna: Not detected Influenza B Rna: Not detected Respiratory Syncytial Virus (Rsv) Rna: Not detected >>NOTE Final result RESPIRATORY CULTURE AND STAIN [[id number]] Sputum 06/13/2023 11:00 PM 06/17/2023 7:50 AM Culture, Respiratory: Rare Stenotrophomonas maltophilia Comment: Insignificant colony count. 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 ([facility]) Comment: Plan: We have ruled out acute [...] for close follow up Jani Carver MD, [facility] I spent a total of 42 minutes on the date of the service which included preparing to see the patient, [id number] patient care, completing clinical documentation, obtaining and/or reviewing separately obtained history, performing a medically appropriate examination, counseling and educating the patient/family/caregiver, ordering medications, tests, or procedures, communicating with other HCPs (not separately reported), and independently interpreting results (not separately reported). documented in this encounter [facility] 01-06-2024 Telephone encounter Note Being addressed in other [facility] phone encounter. Was routed to scheduling to assist with scheduling oximetry with ambulation. [facility] 01-06-2024 Miscellaneous Notes Being addressed in other phone encounter. Was routed to scheduling to assist with scheduling oximetry with ambulation. Images from the original note were not included. Delmi Russell APRN.CNP You 9 minutes ago (11:58 AM) Please make sure patient is schedule for walk test. Thank you. documented in this encounter [facility] 01-06-2024 Telephone encounter Note Images from the original note were not included. Siyum, Delmi, 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FORM RAISER You 9 minutes ago (11:58 AM) Please make sure patient is schedule for walk test. Thank you. [facility] 01-03-2024 History of Present illness Narrative Images from the original note were not included. [facility] Department of Cardiovascular Medicine SECTION [...] Yes, Claudication:No CONDITIONS: Hypertension: No, Heart failure:No, [place] [employer] Association Functional Classification: Class II, Atrial [...] Sclerosis Mother Coronary Artery Disease Maternal Grandfather [place] age 36 Coronary Artery Disease Paternal Grandfather [...] pacemaker/ICD:No, Median sternotomy scar:No, Sternal instability:No CARDIAC: [place] beat not localized, Cardiac thrill:No, Heart rate [...] which included preparing to see the patient, jjfj-gt-bors patient care, completing clinical documentation, performing a medically appropriate examination, counseling and educating the patient/family/caregiver and ordering medications, tests or procedures. Encounter Diagnosis ICD-10-CM 1. Other acute pulmonary embolism, unspecified whether acute cor pulmonale present (HCC) I26.99 ECHO 2. Pleural effusion, left J90 ECHO 3. Pulmonary hypertension (HCC) I27.20 ECHO Korina Vega MD documented in this encounter [facility] 01-03-2024 Nurse Note Fuel Handler present: Elaine Enriquez LPN [facility] 01-03-2024 Instructions Korina Vega MD - 01/03/2024 2:43 PM EST Echo at [facility] at next visit documented in this encounter [facility] 01-03-2024 Nurse Note Fuel Handler present: Elaine Enriquez LPN documented in this encounter [facility] 01-03-2024 History of Present illness Narrative [...] PATIENT PRESENTS WITH AN IMPLANTABLE OR ATTACHED BULLET ASSEMBLY PRESS OPERATOR: No RADIOLOGY DEPARTMENT: Ultrasound PERIPHERAL IV DATA: Not applicable SIGNED BY: DIMA Alarcon) January 03, 2024 1:41 PM documented in this encounter [facility] 01-03-2024 Note HNO ID: [id number] Author: CAROLE PATINO RT (R) Service: Radiology [...] PATIENT PRESENTS WITH AN IMPLANTABLE OR ATTACHED BULLET ASSEMBLY PRESS OPERATOR: No RADIOLOGY DEPARTMENT: Ultrasound PERIPHERAL IV DATA: Not applicable SIGNED BY: RT Dorian(R) January 03, 2024 1:41 PM [facility] 01-02-2024 Telephone encounter Note Palliative Medicine [...] Mosher RN January 02, 2024 12:03 PM [facility] 01-02-2024 Miscellaneous Notes Palliative Medicine Care [...] Irene Han APRN.PEDRO documented in this encounter [facility] 01-02-2024 Telephone encounter Note Consider changing her dosing to 7 am and mid afternoon. If this doesn't help may trial oxycodone 10 mg TID (Q8H) PRN for pain. Irene Han APRN.PEDRO [facility] 12-26-2023 History of Present illness Narrative PALLIATIVE MEDICINE PROGRESS NOTE SERVICE DATE: December 26, 2023 IDENTIFICATION AND INTRODUCTION: Celso Weller is a 43 year old female This visit took place Virtually; I have communicated my name and active licensure. The patient's identity and physical location were verified at the time of this visit. The patient or their legal international sales representative has been informed of the [...] lymph nodes (April 2020) per Dr. Del Valel, then to right mesenteric LN (March 2022). [...] today virtually for follow up. 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 Also [...] OF SYSTEMS: Review of Systems Modified ESAS ([place] Symptom Assessment Scale) Information Provided By: Patient Pain: Mild Nausea: None Loss of Appetite: None Constipation: None Shortness of Breath: Moderate Drowsiness: None Tiredness: Moderate Depression: None Anxiety: None How you feel overall: Fair Objective PHYSICAL EXAMINATION: [facility] 11/18/2012 Physical Exam DATA: Diagnostic tests [...] activity was identified. 12/26/2023 by Irene Han APRN.FORM RAISER Urine Screen Lab Results Component Value Date [...] Urine pH, Pain Ocasio 6.3 02/24/2021 Specific Star,Ur Pain Ocasio 1.012 02/24/2021 Oxidants,Ur 46 02/24/2021 [...] not indicated for this type of pain fpc. - s/p pain management consultation 12/26/23: ordered Keppra - not starting due to fear of side effects. Was told that interventional procedures would need to be set up at [facility]. She is tabling this topic while working [...] 6-8 Weeks via virtual visit Irene Han APRN.FORM RAISER December 26, 2023 12:50 PM This note may have been partially generated using the [employer] voice recognition system. While every effort was made to correct voice recognition errors, kindly be aware that some errors may occasionally occur. documented in this encounter [facility] 12-26-2023 History of Present illness Narrative [...] C No.3 (B COMPLEX PLUS VITAMIN C) 52-04-27-5-300 mg cap Take 1 tablet by mouth [...] supervised home exercise program (HEP): No 5. Detective Chief: No Passive conservative therapy lasting 6 weeks [...] which included preparing to see the patient, rosz-ph-[id number] patient care, completing clinical documentation, obtaining and/or reviewing separately obtained history, performing a medically appropriate examination, counseling and educating the patient/family/caregiver, ordering medications, tests, or procedures, communicating with other HCPs (not separately reported), independently interpreting results (not separately reported), communicating results to the patient/family/caregiver, and care coordination (not separately reported). Kodi Pantoja MD documented in this encounter [facility] 12-25-2023 Telephone encounter Note OV with Dr. Carver added for 01/05. LVM and MC explaining need to schedule PFTs before office visit with Mehul [facility] 12-25-2023 Miscellaneous Notes OV with Dr. Carver added for 01/05. LVM and MC explaining need to schedule PFTs before office visit with Mehul documented in this encounter [facility] 12-20-2023 Note HNO ID: [id number] Author: FLORI CURRAN RN Service: Care Management [...] needed Transportation Arrangements Transportation Arrangements: Car Destination: [address] [place] [address] Handoff Communication: Handoff to: Primary Care Physician Primary Care Physician Name/Phone: Bee Vail MD PCP - General, Internal Medicine [phone] SIGNATURE: Flori Curran RN PATIENT NAME: Celso Weller DATE: December 20, 2023 TIME: 3:25 PM CONTACT #: [phone] [facility] 12-20-2023 Note HNO ID: [id number] Author: NURIA MEZA AA Service: ? Author Type: Antenna Machine Operator Type: Anesthesia Procedure Notes Filed: 12/20/2023 13:51 [...] December 20, 2023 TIME: 1:51 PM CSN: [id number] [facility] 12-20-2023 Note [facility] Procedure: Bronchoscopy Indications: Bilateral infiltrate Providers: [...] 0 Note Initiated On: 12/20/2023 1:24 PM [facility] 12-20-2023 Note HNO ID: [id number] Author: FLORI CURRAN RN Service: Care Management [...] Medical clearance-pt already has home O2 through [facility] SIGNATURE: Flori Curran RN PATIENT NAME: Celso Weller DATE: December 20, 2023 TIME: 11:20 AM PAGER/CONTACT #: [phone] [facility] 12-20-2023 Note HNO ID: [id number] Author: CARLOS CASTELLON MD Service: Hospital Medicine Author Type: Physician Type: Progress Notes Filed: 12/20/2023 09:44 Note Text: DEPARTMENT OF HOSPITAL MEDICINE PROGRESS NOTE SERVICE DATE: 12/20/2023 SERVICE TIME: 6:38 AM Hospital Medicine/Primary Attending: Carlos Castellon MD NIGHT AND WEEKEND COVERAGE: [place] COVERAGE: Days: , please contact via [employer] Mob[employer] - Onvelop Nights: - 3rd floor: please page [facility] Hospitalist night cover [phone] - 4W: please page [facility] Hospitalist night cover #[phone] - 5th floor: please page [facility] Hospitalist night cover #[phone] - SDU (17:00 - 19:00): Please page #[phone] - SDU (19:00 - 07:00): Please call [facility] at [phone] Subjective INTERVAL HPI: Patient seen and examined. [facility] reviewed. KIM. Current Facility-Administered Medications Medication Dose Route Frequency [...] (most recent episode on October, treated at [facility]) with persistent shortness of breath, new oxygen requirements 3 L with exertion, ground glass changes on most recent PET/CT who was sent in to the ED by her bench inspector to be admitted in the hospital for [...] VTE Prophylaxis/Anticoagulants 12/19/23121 vte pharmacologic prophylaxis contraindicated (wy,[place]) 12/19/23121 pneumatic compression stockings (wy,hi) 12/19/23121 activity - mobilize patient ([place]) VTE Prophylaxis: VTE prophylaxis appropriate Disposition: Home Plan of care discussed with Provider, RN, Patient SIGNATURE: Carlos Castellon MD PATIENT NAME: Celso Weller DATE: December 20, 2023 TIME: 6:38 AM [facility] 12-19-2023 Note HNO ID: [id number] Author: FLORI CURRAN RN Service: Care Management Author Type: Registered Nurse Type: Care Mgt Initial Assessment Filed: 12/19/2023 15:47 Note Text: CARE MANAGEMENT: ASSESSMENT AND DISCHARGE PLAN SERVICE DATE: December 19, 2023 SERVICE TIME: 3:43 PM PCP: Bee Vail MD Primary Contact: Extended Emergency Contact Information Primary Emergency Contact: [place] Relation: Significant other Admission Status: Inpatient Insurance Provider: [employer]URE HMO D SNP Discharge Planning requested by: Per Department Practice Potential Transition Plans No Services Indicated Advance Directives Current Advance Directive: Health Care Power of Substance Abuse Counselor;Living Will In Chart: No Current Living Arrangements [...] Be able to go home, General wellness [place] of Choice Explained: [place] of [place] Given: No Reason Not Given: No placements necessary Discharge Planning Participant(s): Patient Caregiver Assessment: Caregiver is ready, willing and able to meet the patient's needs as recommended by the inter-professional team: No Caregiver needed Transport at Discharge: Transportation Arrangements: Car Destination: [address] [facility] [address] Needs Prior to Discharge: Needs Prior to Discharge: Discharge Prescriptions Post-Acute Discharge Plan: CM met with pt bedside and explained my role in transitional care planning. Pt admitted with respiratory failure. Pt a/o x 3. Pt lives with fiance at home. Independent with ADLs and iADLs. Pt is on 3L 02 PRN through [employer]. Follows with pall med (Irene Han APRN.PEDRO) outpatient. Plan for bronchoscopy mai. No d/c needs anticipated. Family member will transport at d/c. SIGNATURE: Flori Curran RN PATIENT NAME: Celso Weller DATE: December 19, 2023 TIME: 3:43 PM CONTACT #: [phone] [facility] 12-19-2023 Note HNO ID: [id number] Author: CARLOS CASTELLON MD Service: Hospital Medicine Author Type: Physician Type: Plan of Care Filed: 12/19/2023 10:57 Note Text: Patient seen and examined. Epic reviewed. NAEON. Sent in by bench inspector for bronch. Maintain NPO except meds and ice chips. Appreciate pulm assistance in coordination. Replete K this AM. Rest per HANDP. Carlos Castellon MD Internal Medicine Epic Chat preferred 12/19/23 8:27 AM [facility] 12-18-2023 Note HNO ID: [id number] Author: NURIA NATHAN, RT(R) Service: Radiology Author Type: Technologist Type: [...] PATIENT PRESENTS WITH AN IMPLANTABLE OR ATTACHED BULLET ASSEMBLY PRESS OPERATOR: No RADIOLOGY DEPARTMENT: General X-ray: Exam(s) Completed: Chest X-Ray PERIPHERAL IV DATA: Not applicable SIGNED BY: RT Candido(R) December 18, 2023 7:50 PM [facility] 12-18-2023 Note SARS-COV-2 (AGENT OF COVID-19) RNA: Not detected INFLUENZA A RNA: Not detected INFLUENZA B RNA: Not detected RESPIRATORY SYNCYTIAL VIRUS (RSV) RNA: Not detected [facility] Comment on above: Performed By: #### 9 [id number] ####[facility] LABORATORYCLIA [id number] [facility], [place] [id number] [place] [address] OF [facility] 12-17-2023 Telephone encounter Note Faxed form to [facility] Confirmation received [facility] 12-17-2023 Miscellaneous Notes Faxed form to [facility] Confirmation received Received oxygen therapy SWO form from [facility] Placed on desk for Kylie to review and sign. Faxed oxygen orders to [facility] Confirmation received Oxygen orders to be sent to [facility] documented in this encounter [facility] 12-17-2023 Telephone encounter Note Received oxygen therapy SWO form from [facility] Placed on desk for Kylie to review and sign. [facility] 12-17-2023 Telephone encounter Note Faxed oxygen orders to [facility] Confirmation received [facility] 12-17-2023 Telephone encounter Note [facility] 12-17-[facility]23 History of Present illness Narrative [...] (most recent episode on October, treated at [facility]) now with persistent shortness of breath, NEW [...] helf 4 total doses. Will review with [place] team about Bronchoscopy or Saturday. She would be willing to go to the ER at [facility] the night before confirmed procedure. I have arranged for her to have oxygen delivered to her home today with [facility]. She should wear 4L with exertion. Her [...] or chills. Electronically signed by 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 APRN.[facility] December 17, 2023 9:40 AM Time [...] infection this year. Most recently treated at [facility] on 10/28. Since that time she has [...] ICD10: R49.9 Treated recently for pneumonia at [facility] with Levaquin and Doxycycline as well as [...] Will try to obtain chest imaging from [facility] for direct comparison. Airway clearance: To be [...] 10/14/2013 12/21/2013 03/11/2014 Haemophilus influenzae b-meningococcal bivalent (Ouv-KpsUG-ZN) vaccine (MENHIBRIX) 10/14/2013 diphtheria tetanus (DT) vaccine, [...] Collected: 03/28/2023 1:39 PM (Final result) Narrative: [facility] [address] [facility] [place] [address] Test Date: 2023-03-28 Pat Name: CELSO WELLER Department: Room: Gender: Female Event Promoter: : 1980 Requested By: Order Number: [id number] Reading MD: Letitia Dodge MD Interpretive Statements [...] 17:02:40 EST by Letitia Dodge MD ID: [id number] Name: CELSO WELLER Race: White Ht: 70.87 [...] 0.73 25 FIVC (L) 2.01 1.98 -1 NIH62-73 (L/sec) 1.76 2.20 3.64 5.38 48 2.24 [...] % 81 FEV1/FVC POST (%) % 84 PJP46-40% PRE (L/S) L/S 1.76 BQT33-65% POST (L/S) L/S 2.24 PEF PRE (L/S) [...] stable. ... Recent Results (from the past 05341 hour(s)) ECHO Collection Time: 03/20/23 8:58 AM [...] * Final * * * 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 APRN.PEDRO December 17, 2023 This note was partially generated using [employer] voice recognition system, and there may be some incorrect words, spellings, and punctuation that were not noted in checking the note before saving. documented in this encounter [facility] 12-16-2023 Telephone encounter Note Next visit 12/23/23 Irene Emely Last filled 11/14/23 Patient phones requesting refills as follows: Requested Prescriptions Pending Prescriptions Disp Refills oxyCODONE IR (ROXICODONE) 10 mg tab 60 tablet 0 Sig: Take 1 tablet by mouth two times a day as needed for pain for up to 30 days. Please review and advise. Kristina Pete RN [facility] 12-16-2023 Miscellaneous Notes Next visit 12/23/23 Irene Han Last filled 11/14/23 Patient phones requesting refills as follows: Requested Prescriptions Pending Prescriptions Disp Refills oxyCODONE IR (ROXICODONE) 10 mg tab 60 tablet 0 Sig: Take 1 tablet by mouth two times a day as needed for pain for up to 30 days. Please review and advise. Kristina Pete RN documented in this encounter [facility] 12-11-2023 History of Present illness Narrative [...] 1204 PATIENT DISCHARGED TO: Ambulatory patient, left AR department area. A Diagnostic radioactive procedure has taken place, with no further precautions necessary other than routine body substance precautions. More information regarding radiation safety can be found using this link: [email or web address] SIGNATURE: RT Anaya(Claudia) PATIENT NAME: Celso Weller DATE: December 11, 2023 TIME: 12:08 PM PAGER/CONTACT #: documented in this encounter [facility] 12-09-2023 Telephone encounter Note Patient Mycharts requesting refills as follows: Last ordered 09/30/2023. Next scheduled follow up appointment 12/23/2023. Requested Prescriptions Pending Prescriptions Disp Refills cyclobenzaprine (FLEXERIL) 10 mg tablet 60 tablet 0 Sig: Take 1 tablet by mouth two times a day as needed for muscle spasm. Kylie Mosher RN December 09, 2023 [facility] 12-09-2023 Miscellaneous Notes Patient Mycharts requesting refills as follows: Last ordered 09/30/2023. Next scheduled follow up appointment 12/23/2023. Requested Prescriptions Pending Prescriptions Disp Refills cyclobenzaprine (FLEXERIL) 10 mg tablet 60 tablet 0 Sig: Take 1 tablet by mouth two times a day as needed for muscle spasm. Kylie Mosher RN December 09, 2023 documented in this encounter [facility] 12-04-2023 History of Present illness Narrative [...] to that visit. documented in this encounter [facility] 12-02-2023 Telephone encounter Note Last Office Visit : 11/21/23 Next Office Visit: 01/14/24 Pharmacy electronically requests the following refill(s) Requested Prescriptions Pending Prescriptions Disp Refills umeclidinium-vilanterol (ANORO ELLIPTA) 62.5-25 mcg/actuation inhaler [Pharmacy Med Name: ANORO ELLIPTA 62.5-25 MCG INH] 60 Each 1 Sig: INHALE 1 INHALATION INSTRUCTED ONCE DAILY. Renetta Cuellar MA [facility] 12-02-2023 Miscellaneous Notes Last Office Visit : 11/21/23 Next Office Visit: 01/14/24 Pharmacy electronically requests the following refill(s) Requested Prescriptions Pending Prescriptions Disp Refills umeclidinium-vilanterol (ANORO ELLIPTA) 62.5-25 mcg/actuation inhaler [Pharmacy Med Name: ANORO ELLIPTA 62.5-25 MCG INH] 60 Each 1 Sig: INHALE 1 INHALATION INSTRUCTED ONCE DAILY. Renetta Cuellar MA documented in this encounter [facility] 11-28-2023 Telephone encounter Note Please see my chart message and advise. Thank you, HAMZAH Tolliver, PN Budget Engineer [facility] 11-28-2023 Miscellaneous Notes Please see my chart message and advise. 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 NADIA form was faxed to [facility] this morning Confirmation was received Received CT and CXR image reports below from [facility] Sent reports for scanning in chart. Requested the images to be pushed as well documented in this encounter [facility] 11-26-2023 Telephone encounter Note Spoke to patient & rescheduled CT chest in [place] on 12/27/2023 @ 7:45 am. Also, her PET scan on @12 pm. [facility] 11-26-2023 Miscellaneous Notes Spoke to patient & rescheduled CT chest in [place] on 12/27/2023 @ 7:45 am. Also, her PET scan on @12 pm. Pt is scheduled for chest w/o in [place] 12/26/23. Pt typically gets her CT scans at our location. If she would like to complete here, please schedule,verses driving to [place]. Left VM for pt with this option [...] Jeny Nava RN documented in this encounter [facility] 11-26-2023 Telephone encounter Note Pt is scheduled for chest w/o in [place] 12/26/23. Pt typically gets her CT scans at our location. If she would like to complete here, please schedule,verses driving to [place]. Left VM for pt with this option as well. Jeny Nava RN [facility] 11-25-2023 Telephone encounter Note PSS: Please call to arrange Jeny Nava RN [facility] 11-25-2023 Telephone encounter Note Okay to schedule the patient's PET scan anytime at her convenience. [facility] Work Phone: 11-25-2023 Telephone encounter Note [...] cleared. BRM/HM: Please advise Jeny Nava RN [facility] 11-21-2023 Telephone encounter Note Images from the original note were not included. NADIA form was faxed to [facility] this morning Confirmation was received Received CT and CXR image reports below from [facility] Sent reports for scanning in chart. Requested the images to be pushed as well [facility] 11-21-2023 Telephone encounter Note Images from the original note were not included. [facility] 11-21-2023 Miscellaneous Notes Images from the original note were not included. documented in this encounter [facility] 11-21-2023 History of Present illness Narrative [...] PATIENT PRESENTS WITH AN IMPLANTABLE OR ATTACHED BULLET ASSEMBLY PRESS OPERATOR: No RADIOLOGY DEPARTMENT: General X-ray: Exam(s) Completed: Chest X-Ray PERIPHERAL IV DATA: Not applicable SIGNED BY: RT Eugenio(R) November 21, 2023 9:14 AM documented in this encounter [facility] 11-21-2023 Instructions 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 APRN.CNP - 11/21/2023 8:53 AM EDT Thank you [...] and Speech (Aashish) documented in this encounter [facility] 11-21-2023 History of Present illness Narrative [...] ICD10: R49.9 Treated recently for pneumonia at [facility] with Levaquin and Doxycycline as well as [...] Will try to obtain chest imaging from [facility] for direct comparison. Airway clearance: To be [...] or chills. Electronically signed by 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 APRN.[facility] November 20, 2023 9:10 AM Time [...] follow-up regarding recent pneumonia infection. Admitted to [facility] for 3 days with pneumonia. This is [...] continue to work on getting images/reports from [facility] for comparison. - OXIMETRY WITH AMBULATION prior to next visit (when off prednisone) to reassess need for supplemental oxygen with exertion. - - Patient previously returned her oxygen to the [employer] company. - Let me know if you [...] 10/14/2013 12/21/2013 03/11/2014 Haemophilus influenzae b-meningococcal bivalent (Epl-WdvXG-EH) vaccine (MENHIBRIX) 10/14/2013 diphtheria tetanus (DT) vaccine, [...] Collected: 03/28/2023 1:39 PM (Final result) Narrative: [facility] [address] [facility] [place] [address] Test Date: 2023-03-28 Pat Name: CELSO WELLER Department: Room: Gender: Female Event Promoter: : 1980 Requested By: Order Number: [id number] Reading MD: Letitia Dodge MD Interpretive Statements [...] 17:02:40 EST by Letitia Dodge MD ID: [id number] Name: CELSO WELLER Race: White Ht: 70.87 [...] 0.73 25 FIVC (L) 2.01 1.98 -1 DHA25-20 (L/sec) 1.76 2.20 3.64 5.38 48 2.24 [...] % 81 FEV1/FVC POST (%) % 84 ZBF77-32% PRE (L/S) L/S 1.76 SJZ05-92% POST (L/S) L/S 2.24 PEF PRE (L/S) [...] stable. ... Recent Results (from the past 81600 hour(s)) ECHO Collection Time: 03/20/23 8:58 AM [...] 2023 This note was partially generated using [employer] voice recognition system, and there may be some incorrect words, spellings, and punctuation that were not noted in checking the note before saving. documented in this encounter [facility] 11-20-2023 History of Present illness Narrative [...] she follows with Dr. Carver at the [facility] and she is on duoneb and albuterol [...] obtain her prior chest x-ray results from [facility]. If the broad immunologic workup is unrevealing then it may be reasonable to look into other causes such as chronic lung disease or hypnotics/sedative use or tumor recurrence. documented in this encounter [facility] 11-14-2023 History of Present illness Narrative PALLIATIVE MEDICINE PROGRESS NOTE SERVICE DATE: November 14, 2023 IDENTIFICATION AND INTRODUCTION: Celso Weller is a 43 year old female This visit took place Virtually; I have communicated my name and active licensure. The patient's identity and physical location were verified at the time of this visit. The patient or their legal international sales representative has been informed of the [...] control needs. Subjective Hospitalized for pneumonia at [facility]. D/c'ed on 10/31 Levaquin/doxy/steroid taper x 5 [...] OF SYSTEMS: Review of Systems Modified ESAS ([place] Symptom Assessment Scale) Information Provided By: Patient Pain: Moderate Nausea: None Loss of Appetite: None Constipation: None Shortness of Breath: Mild Drowsiness: None Tiredness: Mild Depression: None Anxiety: Mild How you feel overall: Fair Objective PHYSICAL EXAMINATION: [facility] 11/18/2012 Physical Exam Constitutional: General: She [...] activity was identified. 11/14/2023 by Irene Han APRN.FORM RAISER Urine Screen Lab Results Component Value Date [...] Urine pH, Pain Ocasio 6.3 02/24/2021 Specific Star,Ur Pain Ocasio 1.012 02/24/2021 Oxidants,Ur 46 02/24/2021 [...] may have been partially generated using the [employer] voice recognition system. While every effort was made to correct voice recognition errors, kindly be aware that some errors may occasionally occur. documented in this encounter [facility] 11-13-2023 Telephone encounter Note Palliative Medicine Care Coordination Follow up Phone Call Telephone call to Celso Weller with no answer, left voicemail regarding her last appt was 10/16 with the plan to wean off the oxycodone. Let her know refill denied and to call back if she has any questions. Call back information given. Kylie Mosher RN November 13, 2023 8:39 AM [facility] 11-13-2023 Miscellaneous Notes Palliative Medicine Care Coordination Follow up Phone Call Telephone call to Celso Weller with no answer, left voicemail regarding [...] November 12, 2023 documented in this encounter [facility] 11-13-2023 Telephone encounter Note Last pall care visit 10/16 at which time we weaned oxycodone and stopped completely. Please call to discuss with patient. T [facility] 11-12-2023 Telephone encounter Note Patient Mycharts [...] days. Kylie Mosher RN November 12, 2023 T [facility] 11-11-2023 History of Present illness Narrative PATIENT NAME: Celso Weller DATE: 11/11/2023 PRIMARY CARE PHYSICIAN: Bee Vail MD OTHER PHYSICIANS: Dr. Cyn Hernandez; Dr. Gurpreet Unger; Irene Han CNP ([facility] Pall Med), Dr. Jane Del Valle ([facility] Rad Onc), Dr. Jani Carver ([facility] Pulmonary), Dr Radha Gamez ([facility] Dermatology) Portions of this encounter note have [...] she was scheduled an appointment with and toddler lead teacher and healthcare network consultant. She currently denies any fevers, chills, [...] 12 inhalations in a 24 hour period. gqnvovehkov-edcqrkbgd-kesqgdvj (TRELEGY ELLIPTA) 200-62.5-25 mcg inhalation powder Inhale [...] C No.3 (B COMPLEX PLUS VITAMIN C) 56-69-15-5-300 mg cap Take 1 tablet by mouth [...] FDG avid neoplastic process. 04/02/2023 Chest x-ray ([facility]) Airspace opacities in the medial [...] which included preparing to see the patient, qdon-fm-dihm patient care, completing clinical documentation, obtaining and/or reviewing separately obtained history, performing a medically appropriate examination, counseling and educating the patient/family/caregiver, ordering medications, tests, or procedures, communicating with other HCPs (not separately reported), communicating results to the patient/family/caregiver, and care coordination (not separately reported). documented in this encounter [facility] 11-08-2023 Telephone encounter Note Patient has an appt on 11/11/23 Would you like labs, if so place orders. Leatha Abarca MA [facility] 11-08-2023 Miscellaneous Notes Patient has an appt on 11/11/23 Would you like labs, if so place orders. Leatha Abarca MA documented in this encounter [facility] 11-06-2023 History of Present illness Narrative Images from the original note were not included. Subjective Patient ID: Celso Weller is a 43 y.o. female who presents for Hospital Follow-up. 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 Scanned and routed for review. [facility] 11-05-2023 Miscellaneous Notes ER Summary report, cmp, cbc, CT chest and chest xray report printed from [employer]. Scanned and routed for review. Please contact [facility] for Discharge summary Pt admitted 10/28-10/31/2023 documented in this encounter [facility] 11-05-2023 Telephone encounter Note Please contact [facility] for Discharge summary Pt admitted 10/28-10/31/2023 [facility] 10-29-2023 Telephone encounter Note Called and spoke to patient. She went to the ER, will update care team on her condition. [facility] 10-29-2023 Miscellaneous Notes Called and spoke to patient. She went to the ER, will update care team on her condition. 1st attempt Lvm to schedule follow up with first available provider, 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 is now available at [facility] October 29, 2023 documented in this encounter [facility] 10-29-2023 Telephone encounter Note 1st attempt Lvm to schedule follow up with first available provider, 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 is now available at [facility] October 29, 2023 [facility] 10-18-2023 History of Present illness Narrative POPULATION HEALTH NAVIGATION OUTREACH Action/FYI Patient scheduled Reason for Outreach Care Gap/HCC or Scheduling Wellness Visits Care Gaps due: Specialty Scheduling Patient Contacted: Spoke to patient/parent/or legal guardian Patient identified by name and : Yes Care Gap/HCC/Scheduling Wellness actions taken: Patient scheduled/pended labs: Specialty Appointment Navigation Signature: Landy Lopez October 18, 2023 11:25 AM documented in this encounter [facility] 10-17-2023 History of Present illness Narrative [...] alone. Rough day - mom is at for broken right hip Celso is been [...] feet, knees, SI Joint. Osteoarthritis. Modified ESAS ([place] Symptom Assessment Scale) Information Provided By: Patient [...] activity was identified. 10/17/2023 by Irene Han APRN.FORM RAISER Urine Screen Lab Results Component Value Date [...] Urine pH, Pain Ocasio 6.3 02/24/2021 Specific Star,Ur Pain Ocasio 1.012 02/24/2021 Oxidants,Ur 46 02/24/2021 [...] may have been partially generated using the [employer] voice recognition system. While every effort was made to correct voice recognition errors, kindly be aware that some errors may occasionally occur. documented in this encounter [facility] 10-15-2023 Procedure note Associated Ord er(s): [...] October 15, 2023 TIME: 10:45 AM Comment: [facility] 10-15-2023 History of Present illness Narrative PULM FUNCTION: Provider: Carole Ruano APRN.FORM RAISER Oximetry - Ambulation: 1 documented in this encounter [facility] 10-15-2023 Procedure note Associated Ord er(s): [...] 10:45 AM Comment: documented in this encounter [facility] 10-10-2023 Telephone encounter Note Rx sent in [facility] 10-10-2023 Miscellaneous Notes Rx sent in documented in this encounter [facility] 10-09-2023 History of Present illness Narrative Radiology [...] PATIENT PRESENTS WITH AN IMPLANTABLE OR ATTACHED BULLET ASSEMBLY PRESS OPERATOR: No RADIOLOGY DEPARTMENT: General X-ray: Exam(s) Completed: Pelvis X-Ray: sacroiliac joints Lower Extremity X-Ray(s): Knee, AP / Lat / Tunne / Merchant Bilateral and Wt. Bearing and Foot, Bilateral and Wt. Bearing Upper Extremity X-Ray(s): Hand, bilateral PERIPHERAL IV DATA: Not applicable SIGNED BY: RT Fang(R) October 09, 2023 12:11 PM documented in this encounter [facility] 10-09-2023 History of Present illness Narrative Images from the original note were not included. Rheumatology Outpatient Clinic Date of Service: 10/09/2023 Patient: Celso Weller Medical Record: [id number] Primary Care Physician: Bee Vail MD Referring Provider: Irene Han [id number] [facility] [id number] Last Rheumatology visit: 06/09/2015 (with Yun Garcia) [...] injection 08/2023 Seen in rheumatology clinic [place] [address] Garcia for elevated CK, myalgia [...] are sorted in reverse-chronological order RAPID 3 Osorio Activities of Daily Living No Data Dress [...] Sclerosis Mother Coronary Artery Disease Maternal Grandfather [place] age 36 Coronary Artery Disease Paternal Grandfather [...] 12 inhalations in a 24 hour period. zwmqyxjksnv-phagdkphz-fllrakob (TRELEGY ELLIPTA) 200-62.5-25 mcg inhalation powder Inhale [...] C No.3 (B COMPLEX PLUS VITAMIN C) 07-84-90-5-300 mg cap Take 1 tablet by mouth [...] 03/24/2018 11/03/2019 Antibodies CAL Negative Positive Negative ACL by EIA OD Ratio 0.3 CAL by EIA, Qual Negative Negative CAL Titer Negative 1:640 Negative CAL Pattern Homogeneous Not applicable for negative result. DNA Antibody w/Confirmation <30 IU/mL 42 Sm Antibody <1.0 AI <0.2 Ribosomal JACKER FEEDER <1.0 AI <0.2 Chromatin Antibody <1.0 AI <0.2 SSA Antibody <1.0 AI <0.2 SSB Antibody <1.0 AI <0.2 JACKER FEEDER Antibody <1.0 AI <0.2 Scleroderma Ab, IgG [...] 03/11/2014, 12/21/2013, 10/14/2013 Haemophilus influenzae b-meningococcal bivalent (Vnz-FzqFA-CJ) vaccine 10/14/2013 diphtheria tetanus (DT) vaccine, pediatric [...] feet, knees, SI joint Recommend follow-up with business information consultant since her psoriasis seem to be active [...] which included preparing to see the patient, wynu-qr-gtfv patient care, completing clinical documentation, obtaining and/or reviewing separately obtained history, performing a medically appropriate examination, counseling and educating the patient/family/caregiver, and ordering medications, tests, or procedures. This note was partially generated with the assistance of [employer] voice recognition software. An attempt was made to correct any dictation errors however there may be some incorrect words, spellings, and punctuation. Simin Brandt MD [facility] Rheumatology Associate Staff [facility] Fitness Coachclassification clerk [facility] documented in this encounter [facility] 09-30-2023 Telephone encounter Note Duplicate refill request. Sent in separate refill encounter. Kylie Mosher RN September 30, 2023 1:25 PM [facility] 09-30-2023 Miscellaneous Notes Duplicate refill request. Sent in separate refill encounter. Kylie Mosher RN September 30, 2023 1:25 PM documented in this encounter [facility] 09-30-2023 Telephone encounter Note Patient Mycharts [...] Please review and advise. Kylie Mosher RN [facility] 09-30-2023 Miscellaneous Notes Patient Mycharts requesting [...] Kylie Mosher RN documented in this encounter [facility] 09-25-2023 Telephone encounter Note No longer taking baclofen [facility] 09-25-2023 Miscellaneous Notes No longer taking baclofen Pharmacy requesting refills as follows: Last ordered 05/07/2023. Next scheduled follow up appointment 10/17/2023. Requested Prescriptions Pending Prescriptions Disp Refills baclofen 5 mg tablet [Pharmacy Med Name: BACLOFEN 5 MG TABLET] 90 tablet 2 Sig: take 1 tablet by mouth three times a day Kylie Mosher RN September 25, 2023 documented in this encounter [facility] 09-25-2023 Telephone encounter Note Pharmacy requesting refills as follows: Last ordered 05/07/2023. Next scheduled follow up appointment 10/17/2023. Requested Prescriptions Pending Prescriptions Disp Refills baclofen 5 mg tablet [Pharmacy Med Name: BACLOFEN 5 MG TABLET] 90 tablet 2 Sig: take 1 tablet by mouth three times a day Kylie Mosher RN September 25, 2023 [facility] 09-19-2023 History of Present illness Narrative PALLIATIVE MEDICINE PROGRESS NOTE SERVICE DATE: September 19, 2023 IDENTIFICATION AND INTRODUCTION: Celso Weller is a 43 year old female This visit took place Virtually; I have communicated my name and active licensure. The patient's identity and physical location were verified at the time of this visit. The patient or their legal international sales representative has been informed of the [...] OF SYSTEMS: Review of Systems Modified ESAS ([place] Symptom Assessment Scale) Information Provided By: Patient Pain: Moderate Nausea: Mild Loss of Appetite: Mild Constipation: None Shortness of Breath: Moderate Drowsiness: None Tiredness: Moderate Depression: Mild Anxiety: Moderate How you feel overall: Fair Objective PHYSICAL EXAMINATION: [facility] 11/18/2012 Physical Exam Constitutional: General: She [...] activity was identified. 09/19/2023 by Irene Han APRN.FORM RAISER Urine Screen Lab Results Component Value Date [...] Urine pH, Pain Ocasio 6.3 02/24/2021 Specific Star,Ur Pain Ocasio 1.012 02/24/2021 Oxidants,Ur 46 02/24/2021 [...] help target sleep) managed by PCP - Voltaren ineffective - d/c - previously discussed duloxetine for co [...] Medicine Nurse to do telephonic follow-up: No Asphalt Blender Services: per oncology SW Irene Han APRN.CNP September 19, 2023 6:35 AM This note may have been partially generated using the [employer] voice recognition system. While every effort was made to correct voice recognition errors, kindly be aware that some errors may occasionally occur. documented in this encounter [facility] 09-18-2023 Instructions Anil Franco PA-C - 09/18/2023 9:31 AM EDT Voice eval and therapy with Viridiana Jimenez, Sheila Ribeiro, Lee Zendejas, or Destiny Howard. documented in this encounter [facility] 09-18-2023 History of Present illness Narrative Images from the original note were not included. [facility] FOLLOW-UP CLINIC NOTE CC: Ms. Weller is [...] clinically indicated. May consider consult to GI, BRIDGE BUILDER Anil Franco PA-C Comprehensive ENT ASSESSMENT: Dysphagia, unspecified type (primary encounter diagnosis) Hoarseness Lprd (laryngopharyngeal reflux disease) PLAN: - Reviewed and discussed results of MBS, XR esophagram with patient; all patient questions answered. Discussed MBS findings and recommendations with BRIDGE BUILDER Cynthia Guajardo CCC-BRIDGE BUILDER via [employer] message. - Consult to BRIDGE BUILDER for voice therapy, per patient request - [...] evaluation in ER - Follow up after BRIDGE BUILDER, GI evaluations; sooner if clinically indicated Anil [...] developing pulmonary complications related to swallowing abilities. BRIDGE BUILDER provided reflux precaution handout and contact information to schedule esophagram. BRIDGE BUILDER recommends follow up with GI given noted [...] OF Comment: left axillary ln biopsy/ had 2013 stem cell tx has port removal 10/12/14: [...] for pain for up to 30 days. ykgqlrfnetj-rcnyqhqia-ctsirrdd (TRELEGY ELLIPTA) 200-62.5-25 mcg inhalation powder Inhale [...] C No.3 (B COMPLEX PLUS VITAMIN C) 09-82-26-5-300 mg cap Take 1 tablet by mouth [...] Sclerosis Mother Coronary Artery Disease Maternal Grandfather [place] age 36 Coronary Artery Disease Paternal Grandfather [...] 3 - Low documented in this encounter [facility] 09-16-2023 Telephone encounter Note Spoke with patient on 09/16/2023. Patient is rescheduled for her visit. [facility] 09-16-2023 Miscellaneous Notes Spoke with patient on 09/16/2023. Patient is rescheduled for her visit. documented in this encounter [facility] 08-29-2023 Telephone encounter Note Palliative Medicine Care Coordination Follow up Phone Call Patient identified by name and : Yes Spoke to: [facility] pharmacy and patient Nurse calling to follow up on refill of oxycodone per patient's concerns. . Patient called concerned because [facility] saying her oxycodone was too early to fill. She said we discussed last week she was leaving for vacation Tuesday 08/29 which is tomorrow until 09/10. Caitlin VASQUEZ covering for Irene Han CNP did put in a new prescription 08/25 to [facility]. Spoke with pharmacy and they have not [...] ok with this and will wait for [facility] to contact her. Kylie Mosher RN August 29, 2023 4:35 PM [facility] 08-29-2023 Miscellaneous Notes Palliative Medicine Care Coordination Follow up Phone Call Patient identified by name and : Yes Spoke to: [facility] pharmacy and patient Nurse calling to follow up on refill of oxycodone per patient's concerns. . Patient called concerned because [facility] saying her oxycodone was too early to fill. She said we discussed last week she was leaving for vacation Tuesday 08/29 which is tomorrow until 09/10. Caitlin VAQSUEZ covering for Irene Han CNP did put in a new prescription 08/25 to [facility]. Spoke with pharmacy and they have not [...] ok with this and will wait for [facility] to contact her. Kylie Mosher RN August 29, 2023 4:35 PM documented in this encounter [facility] 08-27-2023 History of Present illness Narrative [...] Quervain's tenosynovitis Informed Consent Consent Obtained: Verbal Aquilla Protocol A moment to CARE was completed. [...] times daily. Follow up as needed Sherly Hansen PA-C documented in this encounter [facility] 08-26-2023 Telephone encounter Note Patient requesting refills. She is leaving Tuesday 08/29 through 09/10 and only got 70 tablets last fill. Confirmed [facility] pharmacy Last ordered 08/06/2023 by Irene Han CNP Next scheduled follow up appointment 09/16/2023. Requested Prescriptions Pending Prescriptions Disp Refills oxyCODONE IR (ROXICODONE) 10 mg tab 90 tablet 0 Sig: Take 1 tablet by mouth every 8 hours as needed for pain for up to 30 days. Kylie Mosher RN August 26, 2023 [facility] 08-26-2023 Miscellaneous Notes Patient requesting refills. She is leaving Tuesday 08/29 through 09/10 and only got 70 tablets last fill. Confirmed [facility] pharmacy Last ordered 08/06/2023 by Irene Han CNP Next scheduled follow up appointment 09/16/2023. Requested Prescriptions Pending Prescriptions Disp Refills oxyCODONE IR (ROXICODONE) 10 mg tab 90 tablet 0 Sig: Take 1 tablet by mouth every 8 hours as needed for pain for up to 30 days. Kylie Mosher RN August 26, 2023 documented in this encounter [facility] 08-14-2023 Telephone encounter Note Last ov- [...] Please review and advise. Renetta Cuellar MA [facility] 08-14-2023 Miscellaneous Notes Last ov- 08/06/23 [...] Renetta Cuellar MA documented in this encounter [facility] 08-12-2023 History of Present illness Narrative PALLIATIVE MEDICINE PROGRESS NOTE SERVICE DATE: August 12, 2023 IDENTIFICATION AND INTRODUCTION: Celso Weller is a 43 year old female This visit took place Virtually; I have communicated my name and active licensure. The patient's identity and physical location were verified at the time of this visit. The patient or their legal international sales representative has been informed of the [...] control needs. Subjective Last pall care visit 5/23 Hospitalized again for B pneumonia. Just finished [...] OF SYSTEMS: Review of Systems Modified ESAS ([place] Symptom Assessment Scale) Information Provided By: Patient Pain: Mild Nausea: None Loss of Appetite: None Constipation: None Shortness of Breath: Mild Drowsiness: None Tiredness: Moderate Depression: None Anxiety: Moderate How you feel overall: Fair Objective PHYSICAL EXAMINATION: [facility] 11/18/2012 Physical Exam Constitutional: General: She [...] activity was identified. 08/12/2023 by Irene Han APRN.FORM RAISER Urine Screen Lab Results Component Value Date [...] Urine pH, Pain Ocasio 6.3 02/24/2021 Specific Star,Ur Pain Ocasio 1.012 02/24/2021 Oxidants,Ur 46 02/24/2021 [...] which included preparing to see the patient, qffw-qt-otxl patient care, completing clinical documentation, and counseling and educating the patient/family/caregiver. Some elements copied from my note on 07/11/23, the elements have been updated and all reflect current decision making from today, 08/12/2023. Next Visit: 4 Weeks via virtual visit Palliative Medicine Nurse to do telephonic follow-up: No Asphalt Blender Services: None at this time Irene Han APRN.FORM RAISER August 12, 2023 1:35 PM This note may have been partially generated using the [employer] voice recognition system. While every effort was made to correct voice recognition errors, kindly be aware that some errors may occasionally occur. documented in this encounter [facility] 08-06-2023 History of Present illness Narrative Images from the original note were not included. . [facility] PULMONARY DEPARTMENT Follow-Up Clinic Note Ms. Weller is a 43 year old female who presents to the [facility] for follow up of pneumonia. Patient's primary bench inspector is Dr. Carver. Last office visit was [...] on room air. She was admitted to [facility] overnight for pneumonia. (Image request [...] 5 tablets zuri... (REFER TO PRESCRIPTION NOTES). fpoktbyvomp-njcbqgiho-xwhnnbhw (TRELEGY ELLIPTA) 200-62.5-25 mcg inhalation powder Inhale [...] C No.3 (B COMPLEX PLUS VITAMIN C) 97-99-67-5-300 mg cap Take 1 tablet by mouth [...] cooperative. DIAGNOSTICS Testing I Reviewed Today: See [employer] for all available results and images. PFT/Procedures No new results. Imaging Image/report request sent x 2 to [facility] for CXR results from 08/01/23. [...] Lymph 1.00 - 4.00 k/uL 2.35 Abs Potter <0.87 k/uL 0.84 Abs Eosin <0.46 k/uL [...] continue to work on getting images/reports from [facility] for comparison. - OXIMETRY WITH AMBULATION prior to next visit (when off prednisone) to reassess need for supplemental oxygen with exertion. - - Patient previously returned her oxygen to the [employer] company. - Let me know if you [...] which included preparing to see the patient, fymn-wi-uscw patient care, completing clinical documentation, obtaining and/or reviewing separately obtained history, performing a medically appropriate examination, counseling and educating the patient/family/caregiver, and ordering medications, tests, or procedures. Carole Ruano DNP, LORY-FORM RAISER [facility] documented in this encounter [facility] 08-06-2023 Telephone encounter Note [facility] and [facility]. All prescriptions have been APPROPRIATELY filled. No suspicious activity was identified. 08/06/2023 by Irene Han APRN.CNP Rx sent Irene Han APRN.CNP [facility] 08-06-2023 Miscellaneous Notes [facility] checked and validated. All prescriptions have [...] August 05, 2023 documented in this encounter [facility] 08-05-2023 Telephone encounter Note Patient Mycharts [...] days. Kylie Mosher RN August 05, 2023 [facility] 08-05-2023 Telephone encounter Note She preferred to come into the office to see you. [facility] 08-05-2023 Miscellaneous Notes She preferred to come into the office to see you. Spoke with patient on 08/05/2023. Patient is rescheduled accordingly. documented in this encounter [facility] 08-05-2023 Telephone encounter Note Spoke with patient on 08/05/2023. Patient is rescheduled accordingly. [facility] 08-04-2023 History of Present illness Narrative PATIENT NAME: Celso Weller DATE: 08/05/2023 PRIMARY CARE PHYSICIAN: Bee Vail MD OTHER PHYSICIANS: Dr. Cyn Hernandez; Dr. Gurpreet Unger; Irene Han CNP ([facility] Pall Med), Dr. Jane Del Valle ([facility] Rad Onc), Dr. Jani Carver ([facility] Pulmonary), Dr Radha Gamez ([facility] Dermatology) Portions of this encounter note have [...] for pain for up to 30 days. ycmgdwjqxrv-xcnymduew-riqgnbcw (TRELEGY ELLIPTA) 200-62.5-25 mcg inhalation powder Inhale [...] C No.3 (B COMPLEX PLUS VITAMIN C) 52-65-56-5-300 mg cap Take 1 tablet by mouth [...] FDG avid neoplastic process. 04/02/2023 Chest x-ray ([facility]) Airspace opacities in the medial [...] Ruperto Ledezma MD documented in this encounter [facility] 08-01-2023 Telephone encounter Note 1st attempt LVM to schedule appointment, Noa Schwab August 01, 2023 [facility] 08-01-2023 Miscellaneous Notes 1st attempt LVM to schedule appointment, Noa Schwab August 01, 2023 Please contact Celso Weller to schedule hospital f/u visit with me at her earliest convenience next week. ThanksRaffiah documented in this encounter [facility] 08-01-2023 Telephone encounter Note Please contact Celso Weller to schedule hospital f/u visit with me at her earliest convenience next week. Carole Manuel [facility] 07-19-2023 History of Present illness Narrative [...] PATIENT PRESENTS WITH AN IMPLANTABLE OR ATTACHED BULLET ASSEMBLY PRESS OPERATOR: No RADIOLOGY DEPARTMENT: General X-ray: Exam(s) Completed: GI/ Procedure(s): Esophogram with barium contrast PERIPHERAL IV DATA: Not applicable SIGNED BY: RT Beverley(Claudia) July 19, 2023 1:39 PM documented in this encounter [facility] 2023 Instructions Irene Han APRN.CNP - 2023 10:48 AM EDT Irene Han CNP Department of Palliative and Supportive Care Palliative Care - Specialty services in symptom management and support For questions or prescription refills, call: [phone] Saturday - Saturday 9AM-5PM ERVIN Corrales, RN - Cosmetologist Apprentice Please call 3-5 days in advance for medication refills Evenings, Weekends, Holidays: [phone] (ask for palliative medicine on-call provider) For appointments, cancellations or reschedule, call: [phone] documented in this encounter [facility] 2023 History of Present illness Narrative [...] Followed up with pulmonology - inhaler changes, neptali for sputum culture positive for steno bacteria [...] during the day while awake. Modified ESAS ([place] Symptom Assessment Scale) Information Provided By: Patient [...] activity was identified. 2023 by Irene Han APRN.FORM RAISER Urine Screen Lab Results Component Value Date [...] Urine pH, Pain Ocasio 6.3 02/24/2021 Specific Star,Ur Pain Ocasio 1.012 02/24/2021 Oxidants,Ur 46 02/24/2021 [...] Weeks via a virtual visit Irene Han APRN.FORM RAISER 2023 6:35 AM This note may have been partially generated using the [employer] voice recognition system. While every effort was made to correct voice recognition errors, kindly be aware that some errors may occasionally occur. documented in this encounter [facility] 07-10-2023 Note HNO ID: [id number] Author: CYNTHIA GUAJARDO CCC-BRIDGE BUILDER Service: ? Author Type: Speech Language Pathologist Type: Progress Notes Filed: 07/10/2023 14:27 Note Text: Summary: MBSS Start of Care Date: 07/10/23 Onset Date: 05/22/23 [facility] MODIFIED [...] developing pulmonary complications related to swallowing abilities. BRIDGE BUILDER provided reflux precaution handout and contact information to schedule esophagram. BRIDGE BUILDER recommends follow up with GI given noted [...] Consistencies Provided: Thin Liquids, Mildly Thick Liquids ([place] Thick), Pureed Solids, Soft and Bite-Sized Solids, [...] 4, Mildly Thick Liquids IDDSI Level 2 ([place] Thick), Thin Liquids IDDSI Level 0 Education: Education Learning Preferences: Explanation Barriers: None TREATMENT: Performed Modified Barium Swallowing Study (62173). Evaluation: Modified Barium Swallow Evaluation (53495) Education regarding findings from today's Modified Barium Swallowing study (fluoroscopic study) and suggested plans for tk (more content not included)... [facility] 07-10-2023 History of Present illness Narrative Summary: MBSS Start of Care Date: 07/10/23 Onset Date: 05/22/23 [facility] MODIFIED [...] developing pulmonary complications related to swallowing abilities. BRIDGE BUILDER provided reflux precaution handout and contact information to schedule esophagram. BRIDGE BUILDER recommends follow up with GI given noted [...] PMH: HL s/p chemoradiation, Auto BMT in 2014, pulmonary embolism, PjP pneumonia, hypoxic respiratory failure in 2015, psoriatic arthritis OBJECTIVE: MEASURES WITH LEVEL OF FUNCTION: Instrumental Swallow Assessment Type: Modified Barium Swallow Study Modified Barium Swallow Views: Anterior-posterior position, Lateral position Position Of Patient During Assessment: Upright In Chair, Standing Barium Consistencies Provided: Thin Liquids, Mildly Thick Liquids ([place] Thick), Pureed Solids, Soft and Bite-Sized Solids, [...] 4, Mildly Thick Liquids IDDSI Level 2 ([place] Thick), Thin Liquids IDDSI Level 0 Education: Education Learning Preferences: Explanation Barriers: None TREATMENT: Performed Modified Barium Swallowing Study (31933). Evaluation: Modified Barium Swallow Evaluation (10061) Education regarding findings from today's Modified Barium Swallowing study (fluoroscopic study) and suggested plans for treatment were provided to the patient through verbal / written instruction, images and/or demonstration. Patient was able to demonstrate understanding of education provided this date. Billing: Modified Barium Swallow (27571) Total time: 25 minutes Cynthia Guajardo CCC-BRIDGE BUILDER documented in this encounter [facility] 07-10-2023 History of Present illness Narrative [...] PATIENT PRESENTS WITH AN IMPLANTABLE OR ATTACHED BULLET ASSEMBLY PRESS OPERATOR: No RADIOLOGY DEPARTMENT: General X-ray: Exam(s) Completed: GI/ Procedure(s): Modified barium swallow with barium contrast PERIPHERAL IV DATA: Not applicable SIGNED BY: RT Jasvir(Claudia) July 10, 2023 2:04 PM documented in this encounter [facility] 07-10-2023 Note HNO ID: [id number] Author: NOVA LOW RT(Claudia) Service: Radiology Author Type: Technologist Type: Progress [...] PATIENT PRESENTS WITH AN IMPLANTABLE OR ATTACHED BULLET ASSEMBLY PRESS OPERATOR: No RADIOLOGY DEPARTMENT: General X-ray: Exam(s) Completed: GI/ Procedure(s): Modified barium swallow with barium contrast PERIPHERAL IV DATA: Not applicable SIGNED BY: RT Jasvir(R) July 10, 2023 2:04 PM [facility] 06-28-2023 History of Present illness Narrative [...] PFT: SPIROMETRY - BASELINE AND POST DILATOR ([id number]) - ordered on 03/28/23 Impression: Spirometry shows [...] in September as scheduled Jani Carver MD, [facility] documented in this encounter [facility] 06-14-2023 Telephone encounter Note Spoke to patient and scheduled Cardiology appointment with Dr. Elliott at [facility] in [place] on 07/12/2023 with a Chest US same day prior also at [facility] in [place]. Patient added to Dr. Carver's schedule on 06/28/2023 at [facility] and added to wait list as well. Patient agreeable to all appointments. [facility] 06-14-2023 Miscellaneous Notes Spoke to patient and scheduled Cardiology appointment with Dr. Elliott at [facility] in [place] on 07/12/2023 with a Chest US same day prior also at [facility] in [place]. Patient added to Dr. Carver's schedule on [...] be added onto Dr. Carver's schedule at [place] on Saturday06/28/23 at 11 am (it is a hospital day for her but adding her on per Dr. Carver). Dr. Carver would also like her put on the cancellation list for a sooner appt. CC PCP Carole Rick documented in this encounter [facility] 06-14-2023 Telephone encounter Note Spoke with patient and advised of message below. Patient verbalized understanding. Please call patient to help schedule as per below. [facility] 06-14-2023 Telephone encounter Note Please let Celso know I've sent her a message with Dr. Carver's recommendations, then transfer to scheduling for cardiology referral and US chest. Ms. Weller also needs to be added onto Dr. Carver's schedule at [place] on Saturday06/28/23 at 11 am (it is a hospital day for her but adding her on per Dr. Carver). Dr. Carver would also like her put on the cancellation list for a sooner appt. CC PCP Carole Rick [facility] 06-13-2023 Telephone encounter Note Images from the original note were not included. Received coverage denial letter from [employer] Medication:tiotropium bromide (SPIRIVA RESPIMAT) 2.5 mcg/actuation inhaler PA Status: Denied Please see alternative medications below [facility] 06-13-2023 Miscellaneous Notes Images from the original note were not included. Received coverage denial letter from [employer] Medication:tiotropium bromide (SPIRIVA RESPIMAT) 2.5 mcg/actuation inhaler PA Status: Denied Please see alternative medications below Images from the original note were not included. Received PA request via covermymeds for Spiriva Submitted E-PA Will wait for outcome documented in this encounter [facility] 06-13-2023 Telephone encounter Note Images from the original note were not included. Received PA request via covermymeds for Spiriva Submitted E-PA Will wait for outcome [facility] 06-13-2023 History of Present illness Narrative Images from the original note were not included. . [facility] PULMONARY DEPARTMENT Follow-Up Clinic Note Ms. Weller is a 42 year old female who presents to the [facility] for follow up of ongoing bronchitis symptoms. Patient's primary bench inspector is Dr. Carver. Last office visit was [...] spasm. azelastine 0.1% nasal spray Use 1 Haworth in each nostril two times a day. [...] C No.3 (B COMPLEX PLUS VITAMIN C) 82-73-11-5-300 mg cap Take 1 tablet by mouth [...] cooperative. DIAGNOSTICS Testing I Reviewed Today: See [facility] for all available results and images. [...] Lymph 1.00 - 4.00 k/uL 2.11 Abs Potter <0.87 k/uL 0.67 Abs Eosin <0.46 k/uL [...] She will return this to her local [facility]. Given the complexity of her ongoing issues, I will reach out to her primary bench inspector Dr. Carver today to help further guide [...] which included preparing to see the patient, [id number] patient care, completing clinical documentation, performing a medically appropriate examination, counseling and educating the patient/family/caregiver, ordering medications, tests, or procedures, and communicating with other HCPs (not separately reported). Carole Ruano DNP, [facility]PED[facility] documented in this encounter [facility] 06-11-2023 Telephone encounter Note Pt informed of BRM message and denies any questions, needs or concerns at this time. Appointment verified. Jeny Nava RN [facility] 06-11-2023 Telephone encounter Note ----- Message from Ruperto Ledezma MD sent at 06/11/2023 12:10 PM EDT ----- Please inform the patient that her IgG levels are normal, would not benefit from infusions. Her TFTs are normal, continue current dose of Synthroid. If still infectious symptoms after completing Z-Ron she should start the Levaquin. We will see her back as scheduled. [facility] 06-11-2023 Miscellaneous Notes Pt informed of [...] back as scheduled. documented in this encounter [facility] 06-10-2023 Telephone encounter Note PDMP website checked and validated. All prescriptions have been APPROPRIATELY filled. No suspicious activity was identified. 06/10/2023 by Irene Han APRN.FORM RAISER Rx sent Irene Han APRN.FORM RAISER [facility] 06-10-2023 Miscellaneous Notes PDMP website checked and validated. All prescriptions have been APPROPRIATELY filled. No suspicious activity was identified. 06/10/2023 by Irene Han APRN.FORM RAISER Rx sent Irene Han APRN.FORM RAISER Patient requesting refills as follows: Last ordered 05/13/2023. Next scheduled follow up appointment 2023. Requested Prescriptions Pending Prescriptions Disp Refills oxyCODONE IR (ROXICODONE) 10 mg tab 120 tablet 0 Sig: Take 1 tablet by mouth every 6 hours as needed for pain for up to 30 days. Kylie Mosher RN June 10, 2023 documented in this encounter [facility] 06-10-2023 Telephone encounter Note Patient requesting refills as follows: Last ordered 05/13/2023. Next scheduled follow up appointment 2023. Requested Prescriptions Pending Prescriptions Disp Refills oxyCODONE IR (ROXICODONE) 10 mg tab 120 tablet 0 Sig: Take 1 tablet by mouth every 6 hours as needed for pain for up to 30 days. Kylie Mosher RN June 10, 2023 [facility] 06-09-2023 History of Present illness Narrative PATIENT NAME: Celso Weller DATE: 06/10/2023 PRIMARY CARE PHYSICIAN: Bee Vail MD OTHER PHYSICIANS: Dr. Cyn Hernandez; Dr. Gurpreet Unger; Irene Han CNP ([facility] Pall Med), Dr. Jane Del Valle ([facility] Rad Onc), Dr. Jani Carver ([facility] Pulmonary), Dr Radha Gamez ([facility] Dermatology) Portions of this encounter note have [...] shortness of breath with chest tightness. Per [facility] pulmonary (Dr. Carver) she was given several [...] spasm. azelastine 0.1% nasal spray Use 1 Haworth in each nostril two times a day. [...] C No.3 (B COMPLEX PLUS VITAMIN C) 65-93-41-5-300 mg cap Take 1 tablet by mouth [...] FDG avid neoplastic process. 04/02/2023 Chest x-ray ([facility]) Airspace opacities in the medial [...] Ruperto Ledezma MD documented in this encounter [facility] 05-31-2023 History of Present illness Narrative [...] PATIENT PRESENTS WITH AN IMPLANTABLE OR ATTACHED BULLET ASSEMBLY PRESS OPERATOR: No RADIOLOGY DEPARTMENT: General X-ray: Exam(s) Completed: Chest X-Ray PERIPHERAL IV DATA: Not applicable SIGNED BY: RT Rosangela(R) May 31, 2023 3:39 PM documented in this encounter [facility] 05-31-2023 History of Present illness Narrative [...] spasm. azelastine 0.1% nasal spray Use 1 Haworth in each nostril two times a day. [...] C No.3 (B COMPLEX PLUS VITAMIN C) 14-61-82-5-300 mg cap Take 1 tablet by mouth [...] Sclerosis Mother Coronary Artery Disease Maternal Grandfather [place] age 36 Coronary Artery Disease Paternal Grandfather [...] apprec recs. Will obtain chest xray at [facility]. Give breathing treatment and re-evaluate. Reviewed [...] 2023 4:03 PM documented in this encounter [facility] 05-28-2023 Miscellaneous Notes Last OV 04/19/2023 [...] wheezing or shortness of breath Rx #: [id number] Pharmacy comment: Please authorize 90 days supply for the patient. Please review and advise. Mitzi Han MA documented in this encounter [facility] 05-22-2023 History of Present illness Narrative Images from the original note were not included. [facility] NOTE CC: Celso Weller is a [...] clinically indicated. May consider consult to GI, BRIDGE BUILDER Anil Franco PA-C [facility] HPI: 42 [...] spasm. azelastine 0.1% nasal spray Use 1 Haworth in each nostril two times a day. [...] C No.3 (B COMPLEX PLUS VITAMIN C) 46-87-81-5-300 mg cap Take 1 tablet by mouth [...] Sclerosis Mother Coronary Artery Disease Maternal Grandfather [place] age 36 Coronary Artery Disease Paternal Grandfather [...] 4 - Moderate documented in this encounter [facility] 05-20-2023 History of Present illness Narrative [...] PATIENT PRESENTS WITH AN IMPLANTABLE OR ATTACHED BULLET ASSEMBLY PRESS OPERATOR: No IV SITE: lt ac POST EXAM PIV STATUS: Discontinued PROCEDURE TYPE: NM INJECT: PET/CT BODY SCAN. 12.1 mCi F18 FDG. No other medications given.. ADMINISTRATION TIME: 1255 PATIENT DISCHARGED TO: Ambulatory patient, left [place] department area. A Diagnostic radioactive procedure has taken place, with no further precautions necessary other than routine body substance precautions. More information regarding radiation safety can be found using this link: [email or web address] [email or web address] SIGNATURE: RT Vonda(Claudia) PATIENT NAME: Celso Weller DATE: May 20, 2023 TIME: 1:01 PM PAGER/CONTACT #: documented in this encounter [facility] 05-13-2023 Miscellaneous Notes PDMP website checked and validated. All prescriptions have been APPROPRIATELY filled. No suspicious activity was identified. 05/13/2023 by Irene Han APRN.FORM RAISER Rx sent Irene Han APRN.FORM RAISER Patient requesting refills as follows: Last ordered 04/08/2023. Next scheduled follow up appointment 05/16/2023. Requested Prescriptions Pending Prescriptions Disp Refills oxyCODONE IR (ROXICODONE) 10 mg tab 120 tablet 0 Sig: Take 1 tablet by mouth every 6 hours as needed for pain for up to 30 days. Kylie Mosher RN May 13, 2023 documented in this encounter [facility] 05-07-2023 Miscellaneous Notes Pharmacy requesting refills as follows: Last ordered 01/07/2023 Next scheduled follow up appointment 05/16/2023. Requested Prescriptions Pending Prescriptions Disp Refills baclofen 5 mg tablet [Pharmacy Med Name: BACLOFEN 5 MG TABLET] 90 tablet 1 Sig: take 1 tablet by mouth three times a day Kylie Mosher RN May 07, 2023 documented in this encounter [facility] 04-19-2023 History of Present illness Narrative [...] PATIENT PRESENTS WITH AN IMPLANTABLE OR ATTACHED BULLET ASSEMBLY PRESS OPERATOR: No RADIOLOGY DEPARTMENT: General X-ray: Exam(s) Completed: Chest X-Ray PERIPHERAL IV DATA: Not applicable SIGNED BY: RT Nishant(Claudia) April 19, 2023 9:31 AM documented in this encounter [facility] 04-19-2023 History of Present illness Narrative Images from the original note were not included. . [facility] PULMONARY DEPARTMENT Follow-Up Clinic Note Ms. Weller is a 42 year old female who presents to the [facility] for follow up of hospitalization for pneumonia secondary to influenza. Patient's primary bench inspector is Dr. Carver. PMH includes restrictive lung [...] difficulty swallowing and persistent hoarseness. Refer to [facility] ENT for repeat flex scope and assistance [...] to worsen, and she went went to [facility] ED 03/31/23. SARS-CoV-2 TARA testing done at that time was negative. She was also negative for influenza A/influenza B antigens at that time. She was diagnosed with nonspecific viral illness and advised to stop molnupiravir at that time. Symptoms further worsened, especially dyspnea and wheezing, so she returned to [facility] ED 04/02/2023. This time she [...] daily. azelastine 0.1% nasal spray Use 1 Haworth in each nostril two times a day. [...] C No.3 (B COMPLEX PLUS VITAMIN C) 22-18-65-5-300 mg cap Take 1 tablet by mouth [...] cooperative. DIAGNOSTICS Testing I Reviewed Today: See [facility] for all available results and images. [...] - Will request most recent images from [facility] for comparison Follow up with Dr. Carver in Sep 2023 as already scheduled, and as needed. Contact Dr. Carver and myself for any persistent symptoms that do not return to baseline post-treatment. Patient instructed to call our office, PCP, or go to the emergency department for new or worsening problems or symptoms. Carole Ruano DNP, [facility] I spent a total of 46 minutes on the date of the service which included preparing to see the patient, [id number] patient care, completing clinical documentation, obtaining and/or reviewing separately obtained history, performing a medically appropriate examination, counseling and educating the patient/family/caregiver, and ordering medications, tests, or procedures. documented in this encounter [facility] 04-16-2023 History of Present illness Narrative PATIENT NAME: Celso Weller DATE: 04/16/2023 PRIMARY CARE PHYSICIAN: Bee Vail MD OTHER PHYSICIANS: Dr. Cyn Hernandez; Dr. Gurpreet Unger; Irene Han CNP ([facility] Pall Med), Dr. Jane Del Valle ([facility] Rad Onc), Dr. Jani Carver ([facility] Pulmonary), Dr Radha Gamez ([facility] Dermatology) Portions of this encounter note have [...] shortness of breath. She was seen at [facility] emergency room on 03/30/2023, and [...] daily. azelastine 0.1% nasal spray Use 1 Haworth in each nostril two times a day. [...] C No.3 (B COMPLEX PLUS VITAMIN C) 89-84-38-5-300 mg cap Take 1 tablet by mouth [...] 04/05/2021 277 RADIOLOGY/OTHER STUDIES: 04/02/2023 Chest x-ray ([facility]) Airspace opacities in the medial [...] per [facility] pulmonary. She was hospitalized at [facility] 04/02/2023 through 04/04/2023 with apparent influenza A and community-acquired pneumonia. Clinically improved with antibiotics. Currently on a prednisone taper. Per patient request we will arrange for follow-up with her [facility] bench inspector (Dr. Carver). 4. History of pulmonary embolism [...] Ruperto Ledezma MD documented in this encounter [facility] 04-08-2023 Miscellaneous Notes PDMP website checked and validated. All prescriptions have been APPROPRIATELY filled. No suspicious activity was identified. 04/08/2023 by Irene Han APRN.FORM RAISER Rx sent Irene Han APRN.FORM RAISER Patient requesting refills as follows: Last ordered [...] April 08, 2023 documented in this encounter [facility] 04-01-2023 Miscellaneous Notes Patient will need lab orders for Saturday04/16/23. Thanks. Jeny Robert MA documented in this encounter [facility] 03-29-2023 History of Present illness Narrative Subjective Patient ID: Celso Weller is a 42 y.o. female who presents for covid +. Pt seen via telehealth using real time, two way, audio and video communication in place of an office visit. Pt gave verbal consent to this visit. Pt is currently located in her home in [place]. --- Appt for Covid + --- Onset [...] capsule; Refill: 0 documented in this encounter [facility] 03-28-2023 Instructions 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 APRN.PEDRO - 03/28/2023 2:41 PM EST Continue [...] any runs out. documented in this encounter [facility] 03-28-2023 History of Present illness Narrative [...] or chills. Electronically signed by 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 APRN.[facility] March 28, 2023 2:55 PM Time [...] few weeks but is interested in a [facility] ENT if we can find one near [...] 10/14/2013 12/21/2013 03/11/2014 Haemophilus influenzae b-meningococcal bivalent (Nsz-UpcOJ-JD) vaccine (MENHIBRIX) 10/14/2013 diphtheria tetanus (DT) vaccine, [...] 2023 This note was partially generated using [employer] voice recognition system, and there may be some incorrect words, spellings, and punctuation that were not noted in checking the note before saving. documented in this encounter [facility] 03-28-2023 Procedure note Associated Ord er(s): [...] TIME: 1:59 PM documented in this encounter [facility] 03-28-2023 History of Present illness Narrative PULM FUNCTION SMARTBLOCK: Provider: Don Chan APRN.FORM RAISER Spirometry w/BD: 1 DLCO: 1 Exhaled Nitric Oxide: 1 documented in this encounter [facility] 01-29-2023 Evaluation note Encounter Date Diagnosis [...] no improvement in [address] [facility] Other 12-11-2023 Miscellaneous Notes* Telephone Encounter - Edilma Song RN - 01/28/2023 1:47 PM EST Pt here for PET Benny labs for office f/u next week Please sign pended cortisol level if needed for f/u. Pt requested level Thank You! Edilma Song RN [facility] History of Present illness Narrative* Bee [...] 1345 PATIENT DISCHARGED TO: Ambulatory patient, left [place] department area. A Diagnostic radioactive procedure has taken place, with no further precautions necessary other than routine body substance precautions. More information regarding radiation safety can be found usingthis link: [email or web address]%20Nuclear%[email or web address] SIGNATURE: RT Anaya(Claudia) PATIENT NAME: Celso Weller DATE: January 28, [...] 2023 TIME: 1:53 PM [facility] Miscellaneous Notes* Telephone Encounter - Kristina [...] advise. Kristina Pete RN [facility]23 Miscellaneous Notes* Telephone Encounter - Anh [...] are back to baseline. documented in this encounterGenesis Hospital11-14-2023 History of Present illness Narrative* Ruperto Ledezma MD - 01/01/2023 7:39 AM EST PATIENT NAME: Celso Weller DATE: 01/01/2023 PRIMARY CARE PHYSICIAN: Bee Vail MD OTHER PHYSICIANS: Dr. Cyn Hernandez; Dr. Gurpreet Unger; Irene Han, PEDRO ([facility] Pall Med), Dr. Jane Del Valle ([facility] Rad Onc), Dr. Jani Carver ([facility] Pulmonary), Dr Radha Gamez ([facility] Dermatology) CC: This is a 40 year [...] C No.3 (B COMPLEX PLUS VITAMIN C) 32-78-89-5-300 mg cap^Take 1 tablet by mouth once [...] PCP. Ruperto Ledezma MD documented in this encounterGenesis Hospital10-30-2023 Miscellaneous Notes* Telephone Encounter - Mitzi Brown - 12/17/2022 2:33 PM EDT Called patient and rescheduled with PFT's to January 03 and FU with SARAH documented in this encounterGenesis Hospital09-18-2023 Miscellaneous Notes* Telephone Encounter - Irene Han APRN.CNP - 11/05/2022 4:38 PM EDT PDMP website checked and validated. All prescriptions have been APPROPRIATELY filled. No suspiciousactivity was identified. 11/05/2022 by Irene Han APRN.FORM RAISER Rx sent - earliest fill 11/09/22 Irene Han APRN.FORM RAISER * Telephone Encounter - Kylie Mosher RN [...] advise. Kylie Mosher RN documented in this encounterGenesis Hospital08-31-2023 Miscellaneous Notes* Telephone Encounter - Kylie Mosher RN - 10/18/2022 1:34 PM EDT Prior Authorization Documentation Prior authorization requested via Covermeds for the following medication: Medication: Lyrica 100 mg capsules Approved and authorizes your coverage from 02/18/2022 - 02/17/2023, Insurance Company Name: [employer] Phone number: [phone] Patient ID number: [id number] Osorio [id number] Pharmacy Name: [facility] Telephone number: [phone] Kylie Mosher RN October 18, 2022 1:38 PM documented in this encounterGenesis Hospital08-31-2023 Instructions* Patient Instructions* Irene Han APRN.CNP - 10/18/2022 11:50 AM EDT Irene Han CNP Department of Palliative and Supportive Care Palliative Care - Specialty services in symptom management and support For questions or prescription refills, call: [phone] Saturday - Saturday 9AM-5PM ERVIN Corrales, RN - Cosmetologist Apprentice Please call 3-5 days in advance for medication refills Evenings, Weekends, Holidays: [phone] (ask for palliative medicine on-call provider) For appointments, cancellations or reschedule, call: [phone] documented in this encounterGenesis Hospital08-31-2023 History of Present illness Narrative* Irene [...] Denies confusion, oversedation, myoclonus, constipation. Modified ESAS ([place] Symptom Assessment Scale) Information Provided By: Patient [...] suspiciousactivity was identified. 10/18/2022 by Irene Han APRN.FORM RAISER Urine Screen Lab Results Component Value Date [...] Urine pH, Pain Ocasio 6.3 02/24/2021 Specific Star,Ur Pain Ocasio 1.012 02/24/2021 Oxidants,Ur 46 02/24/2021 [...] may have been partially generated using the [place] Toxicology voice recognition system. While every effort was made to correct voice recognition errors, kindly be aware that some errors may occasionally occur. documented in this encounterGenesis Hospital08-31-2023 Instructions* Patient Instructions* Zoila Pedersen RN - 10/18/2022 11:10 AM EDT Use warm compresses to left inner thigh daily for comfort documented in this encounterGenesis Hospital08-31-2023 History of Present illness Narrative* Zoila [...] 18, 2022 11:09 AM documented in this [facility]08-22-2023 Miscellaneous Notes* Telephone Encounter - Kylie [...] advise. Kylie Mosher RN documented in this encounterGenesis Hospital08-21-2023 Miscellaneous Notes* Telephone Encounter - Flori [...] advise. Flori Cartagena RN documented in this encounterGenesis Hospital07-27-2023 History of Present illness Narrative* Jani [...] PFT: SPIROMETRY - BASELINE AND POST DILATOR ([id number]) - ordered on 11/03/19 [facility] [address] [facility] 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 Hernandez in the beginning of November Patient will schedule PET scan documented in this encounterGenesis Hospital07-05-2023 History of Present illness Narrative* Cyn [...] pneumonitis She saw Dr. Alejandro sarmiento at [facility] for 2nd opinion cell([phone]) She agreed with out plan and recommended [...] DATA CBC, CMP, TSH were reviewed in [facility]. PET scan report and images were reviewed in [facility]. Results werediscussed with patient and radiation [...] FACP CC: Bee Parra documented in this encounterGenesis Hospital06-27-2023 Miscellaneous Notes* Telephone Encounter - Irene Han APRN.CNP - 08/14/2022 1:29 PM EDT [facility]. All prescriptions have [...] advise. Kristina Pete RN documented in this encounterGenesis Hospital06-27-2023 History of Present illness Narrative* Edilma [...] found usingthis link: [email or web address] 20Diagnostic%20Nuclear%20Medicine%20Procedures.pdf SIGNATURE: RT Anaya(R) PATIENT NAME: Celso Weller DATE: August 14, 2022 TIME: 11:23 AM PAGER/CONTACT #: documented in this encounterGenesis Hospital06-16-2023 Miscellaneous Notes* Telephone Encounter - Don [...] her at another time. documented in this encounterGenesis Hospital06-14-2023 Instructions* Patient Instructions* Don Chan APRN.CNP [...] sample in cup provided. documented in this encounterGenesis Hospital06-14-2023 History of Present illness Narrative* Don [...] cough, fever, or chills. Electronically signed by Dno Chan APRN.[facility], [facility] July 31, 2022 HPI: Celso Weller [...] listed in the HPI Modified Medical Research [place] Dyspnea Scale (MMRC) I only get breathless [...] C No.3 (B COMPLEX PLUS VITAMIN C) 74-35-54-5-300 mg cap Take 1 tablet by mouth [...] Sclerosis Mother Coronary Artery Disease Maternal Grandfather [place] age 36 Coronary Artery Disease Paternal Grandfather [...] 10/14/2013 12/21/2013 03/11/2014 Haemophilus influenzae b-meningococcal bivalent (Ogz-YujKL-TX) vaccine (MENHIBRIX) 10/14/2013 diphtheria tetanus (DT) vaccine, [...] DIAGNOSTICS & IMAGING: (Reviewed & updated by wy 07/31/2022) PFTs 11/03/2019 IMPRESSION: Spirometry shows no [...] fatty infiltration. No evidence of adrenal mass.. Hand Nailer (topogram) images: No additional findings. YOGESH DAVIS [...] unlikely to be related to lymphoma RESULT: Hand Nailer (topogram) images: No additional findings. - Mediastinum [...] which included preparing to see the patient, pfvw-qh-avfx patient care, completing clinical documentation, obtaining and/or reviewing separately obtained history, performing a medically appropriate examination, counseling and educating the pat ient/family/caregiver, and ordering medications, tests, or procedures. documented in this encounterGenesis Hospital06-01-2023 History of Present illness Narrative* Irene Han APRN.CNP - 07/19/2022 8:15 AM EDT PALLIATIVE [...] bilateral lung rodriguez. Finished steroids and antibiotics. [place] very good after this but then as [...] relaxants. Denies confusion, oversedation, myoclonus. Modified ESAS ([place] Symptom Assessment Scale) Information Provided By: Patient [...] suspiciousactivity was identified. 07/19/2022 by Irene Han APRN.FORM RAISER Urine Screen Lab Results Component Value Date [...] Urine pH, Pain Ocasio 6.3 02/24/2021 Specific Star,Ur Pain Ocasio 1.012 02/24/2021 Oxidants,Ur 46 02/24/2021 [...] Visit: 3 Months in person Irene Han APRN.FORM RAISER July 19, 2022 8:15 AM This note may have been partially generated using the [place] Toxicology voice recognition system. While every effort was made to correct voice recognition errors, kindly be aware that some errors may occasionally occur. documented in this encounterGenesis Hospital05-31-2023 Miscellaneous Notes* Telephone Encounter - Flori Cartagena RN - 07/18/2022 12:09 PM EDT My chart appointment question response sent. Flori Cartagena RNCC Budget Engineer documented in this encounterGenesis Hospital05-31-2023 History of Present illness Narrative* Cyn [...] pneumonitis She saw Dr. Alejandro sarmiento at [facility] for 2nd opinion cell([phone]) She agreed with out plan and recommended [...] DATA CBC, CMP, TSH were reviewed [facility]. PET scan report and images were reviewed in [facility]. Results werediscussed with patient and radiation [...] FACP CC: Bee Parra documented in this encounterGenesis Hospital05-31-2023 Instructions* Patient Instructions* Gunjan Joya LPN - 07/18/2022 11:26 AM EDT Follow up with Dr. Hernandez 08/14 at 9:50a PET scan a few days prior documented in this encounterGenesis Hospital05-30-2023 History of Present illness Narrative* RT [...] 17, 2022 1:24 PM documented in this encounterGenesis Hospital05-30-2023 Miscellaneous Notes* Telephone Encounter - Irene Han APRN.FORM RAISER - 07/17/2022 11:55 AM EDT PDMP website checked and validated. All prescriptions have been APPROPRIATELY filled. No suspiciousactivity was identified. 07/17/2022 by Irene Han APRN.CNP Rx sent Irene [...] advise. Kylie Mosher RN documented in this encounterGenesis Hospital04-28-2023 Miscellaneous Notes* Telephone Encounter - Don [...] in stock and I spoke with pharmacy laboratory technician Savannah who states they have 1 box in stock. Please advise. * Telephone Encounter - HILARY Dougherty - 06/13/2022 1:16 PM EDT Celso Weller called today. : 1980 Allergies: Chlorhexidine and Sulfa (Sulfonamide Antibiotics) (home) [phone] (cell) Reason for call: Patient states that at the last office visit 06/04/22 the provider was going to call in DOUG. She states it was not called in . Please advise. e- [id number] [place] [address] - [address] - [id number] [place] [address] Patient last appointment: 06/04/2022 The patients preferred pharmacy has been captured for this encounter? yes Marilyn Hughes, PSS documented in this encounterGenesis Hospital04-25-2023 Miscellaneous Notes* Telephone Encounter - Irene Hna APRN.PEDRO - 06/12/2022 12:06 PM EDT PDMP website checked and validated. All prescriptions have been APPROPRIATELY filled. No suspiciousactivity was identified. 06/12/2022 by Irene Han APRN.FORM RAISER Rx sent Irene Han APRN.FORM RAISER * Telephone Encounter - Kylie Mosher RN [...] advise. Kylie Mosher RN documented in this encounterGenesis Hospital04-25-2023 Instructions* Patient Instructions* Gunjan Joya LPN - 06/12/2022 11:09 AM EDT Pt will schedule CT Follow up with Dr. Hernandez 07/17 or 07/18 Schedule treatment 07/24 documented in this encounterGenesis Hospital04-25-2023 Nurse Note* Vannessa Lopez Ma - 06/12/2022 10:50 AM EDT Called patient and got the voice mail. Left message to remind patient about the vv scheduled today at 10:50 am with documented in this encounterGenesis Hospital04-25-2023 History of Present illness Narrative* Cyn Hernandez MD - 06/12/2022 10:[address] [facility] VISIT This visit [facility] which required patient- provider interaction for the medical decision making as documented below. Persons Present: patient I have communicated my name and active licensure. The patient s identity and physical location wereverified at the time of this visit. Celso Weller or their legal international sales representative has been informed ofthe risks and benefits of -- and alternatives to -- treatment through a remote evaluation and consents to proceed with the evaluation remotely. Total Time Spent: 5-10 minutes on this telephone encounter HISTORY REVIEWED (electronic chart updated): - medical history - medications - allergies Interval history: [facility]. Was not able [...] resuming Cyn Hernandez MD documented in this encounterGenesis Hospital04-13-2023 History of Present illness Narrative* Katarzyna [...] 31, 2022 7:59 AM documented in this encounterGenesis Hospital04-03-2023 History of Present illness Narrative* Jane Del Valle MD - 05/21/2022 9:28 AM EDT No show. Jane Del Valle MD, MSc, MRCP, FRCR, DABR Radiation Oncology Staff Physician May 21, 2022 9:28 AM documented in this encounterGenesis Hospital03-08-2023 Miscellaneous Notes* Telephone Encounter - hCar Elder RN - 04/25/2022 2:13 PM EST [...] questions or concerns or Radiation Oncology Fellow Emt Basic after 5pm and on weekends for urgent issues. Patient verbalized understanding of when to seek medical attention and after hours number protocol. Follow up appointment: Reminded patient of virtual visit on 05/18/2022 with Sarah Carranza, RN documented in this encounterGenesis Hospital03-06-2023 Instructions* Patient Instructions* Irene Han APRN.PEDRO - 04/23/2022 10:30 AM EST Irene Han CNP Department of Palliative and Supportive Care Palliative Care - Specialty services in symptom management and support For questions or prescription refills, call: [phone] Saturday - Saturday 9AM-5PM ERVIN Corrales, RN - Cosmetologist Apprentice Please call 3-5 days in advance for medication refills Evenings, Weekends, Holidays: [phone] (ask for palliative medicine on-call provider) For appointments, cancellations or reschedule, call: [phone] documented in this encounterGenesis Hospital03-06-2023 History of Present illness Narrative* Irene [...] as weather changes to spring. Modified ESAS ([place] Symptom Assessment Scale) Information Provided By: Patient [...] suspiciousactivity was identified. 04/23/2022 by Irene Han APRN.FORM RAISER Urine Screen Lab Results Component Value Date [...] Urine pH, Pain Ocasio 6.3 02/24/2021 Specific Star,Ur Pain Ocasio 1.012 02/24/2021 Oxidants,Ur 46 02/24/2021 [...] may have been partially generated using the [place] Toxicology voice recognition system. While every effort was made to correct voice recognition errors, kindly be aware that some errors may occasionally occur. documented in this encounterGenesis Hospital03-03-2023 Miscellaneous Notes* Telephone Encounter - Char [...] M.D. Char MUELLER, RN documented in this encounterGenesis Hospital02-27-2023 Miscellaneous Notes* Telephone Encounter - Irene Han APRN.CNP - 04/16/2022 1:38 PM EST PDMP website checked and validated. All prescriptions have been APPROPRIATELY filled. No suspiciousactivity was identified. 04/16/2022 by Irene Han APRN.CNP Rx sent Irene Han APRN.CNP * Telephone Encounter - Kylie Mosher [...] advise. Kylie Mosher RN documented in this encounterGenesis Hospital02-22-2023 History of Present illness Narrative* Jane Del Valle MD - 04/11/2022 12:00 AM EST CELSO WELLER [id number] 04/11/2022 [facility] Department of Radiation Oncology [facility] RADIATION ONCOLOGY: COMPLETION NOTE DATE OF SIMULATION: 03/23/2022 DATES OF TREATMENT: 04/02/2022 to 04/06/2022 TREATMENT MACHINE: [place] TREATMENT AREA: Right mesenteric LN DIAGNOSIS: 39 [...] PM Electronically Signed cc: Bee Vail MD [id number] [address] [place] [id number] [address] [facility] [id number] documented in this encounterGenesis Hospital02-06-2023 History of Present illness Narrative* Jane [...] I spent over 50% of a total ulod-mi-onpf time of 60-80 minutes, counseling/coordinating patient care. Jaen Del Valle MD, MSc, MRCP, FRCR, DABR Radiation Oncology Staff Physician March 26, 2022 11:25 AM documented in this encounterGenesis Hospital02-03-2023 Nurse Note* Zoila Lane LPN - 03/23/2022 9:18 AM EST Radiation Oncology Nursing Note PATIENT NAME: Celso Weller PATIENT [facility] FACILITY/LOCATION: [facility] PROCEDURE: Contrast Injection for CT Simulation Safety Checks Patient identified using 2 identifiers: Yes NPO x 4 hours verified: Yes Creatinine level drawn within the last 60 days: Yes Creatinine level within normal limits: Yes IV start: Time: 08. #22g angiocath placed in the Right AC. [...] NAME: Celso Weller PATIENT March 23, 2022 [facility] FACILITY/LOCATION: 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 Was KP approved? No KP completed and on 03/07/22 scored 0 distress. Signed by: Zoila Lane LPN documented in this encounterGenesis Hospital02-03-2023 History of Present illness Narrative* [facility] Provider - 03/23/2022 12:00 AM EST CELSO WELLER [id number] 03/23/2022 [facility] Department of Radiation Oncology [facility] RADIATION ONCOLOGY - Therapist Injection [...] Disposition: HOME Therapist: magali documented in this encounterGenesis Hospital02-03-2023 History of Present illness Narrative* Jane Del Valle MD - 03/23/2022 12:00 AM EST CELSO WELLER [id number] 03/23/2022 [facility] Department of Radiation Oncology Treatment Planning Note For reasons stated in the consult note, Celso Weller is a candidate for radiation therapy. Based [...] Valle M.D. 37:10 AM documented in this encounterGenesis Hospital02-02-2023 Miscellaneous Notes* Telephone Encounter - Dary [...] radiation. Dary Gonzalez RN documented in this encounterGenesis Hospital01-29-2023 History of Present illness Narrative* Jane [...] C No.3 (B COMPLEX PLUS VITAMIN C) 06-94-73-5-300 mg cap^Take 1 tablet by mouth once [...] I spent over 50% of a total xkhi-ps-vqcf time of 60-80 minutes, counseling/coordinating patient care. Signed by: Jane Del Valle MD, MSc, MRCP, FRCR, DABR Radiation Oncology Staff Physician March 18, 2022 11:55 PM cc: Bee Vail [address] [place] [address] [place] [address] No referring provider defined for this encounter. documented in this encounterGenesis Hospital01-26-2023 Miscellaneous Notes* Telephone Encounter - Flori [...] RN * Telephone Encounter - Irene Han APRN.FORM RAISER - 03/15/2022 12:58 PM EST PDMP website checked and validated. All prescriptions have been APPROPRIATELY filled. No suspiciousactivity was identified. 03/15/2022 by Irene Han APRN.CNP Rx sent Irene [...] advise. Flori Cartagena RN documented in this encounterGenesis Hospital01-18-2023 Instructions* Patient Instructions* Mackenzie Woods LPN - 03/07/2022 11:47 AM EST Unarrive tx today Schedule Office visit with Dr Hernandez 03/28/22 @11:30am per Dr Hernandez documented in this encounterGenesis Hospital01-18-2023 History of Present illness Narrative* Cyn [...] pneumonitis She saw Dr. Alejandro sarmiento at [facility] for 2nd opinion cell([phone]) She agreed with out plan and recommended [...] neuropathy No diarrhea or constipation. PHYSICAL EXAM: [facility] 11/18/2012 General: NAD, ECOG PS:1 No paleness or jaundice lymph system: No lymphadenopathy in the neck. SC or axillary area BL. Heart: S1, S2, RRR Lung: CTA (BL), no wheezing or crackles Abd: No tenderness, or distension. Soft Extremities: No pitting edema, or cyanosis DATA CBC, CMP, TSH [facility]. PET scan report and images were reviewed in [facility]. Results werediscussed with patient and radiation [...] FACP CC: Bee Parra documented in this encounterGenesis Hospital01-09-2023 History of Present illness Narrative* Jeny [...] 1145 PATIENT DISCHARGED TO: Ambulatory patient, left AR department area. A Diagnostic radioactive procedure has taken place, with no further precautions necessary other than routine body substance precautions. More information regarding radiation safety can be found usingthis link: [email or web address] 20Diagnostic%20Nuclear%20Medicine%20Procedures.pdf SIGNATURE: RT Anaya(R) PATIENT NAME: Celso Weller DATE: February 26, 2022 TIME: 12:03 PM PAGER/CONTACT #: documented in this encounterGenesis Hospital12-08-2022 Instructions* Patient Instructions* Irene Han APRN.FORM RAISER - 01/25/2022 2:57 PM EST JORGE GarsiaC Department of Palliative and Supportive Care Palliative Care - Specialty services in symptom management and support For questions or prescription refills, call: [phone] Saturday - Saturday 9AM-5PM ERVIN Corrales, RN - Cosmetologist Apprentice Please call 3-5 days in advance for medication refills Evenings, Weekends, Holidays: [phone] (ask for palliative medicine on-call provider) For appointments, cancellations or reschedule, call: [phone] documented in this encounterGenesis Hospital12-08-2022 NoteHNO ID: [id number] Author: Irene Han APRN.PEDRO Service: ? Author [...] treadmill. She will be meeting with a management trainer to better understand the equipment upcoming. Has had some nausea since starting doxy for acne. Responsive to Compazine. Modified ESAS ([place] Symptom Assessment Scale) Information Provided By: Patient [...] activity was identified. 01/25/2022 by Irene Han APRN.FORM RAISER Urine Screen Lab Results Component Value Date [...] <5 02/24/2021 Methamphetamine Q (more content not included)...[id number] History of Present illness Narrative* Irene Han APRN.[facility] - 01/25/2022 10:55 AM EST PALLIATIVE MEDICINE [...] treadmill. She will be meeting with a management trainer to better understand the equipment upcoming. Has had some nausea since starting doxy for acne. Responsive to Compazine. Modified ESAS ([place] Symptom Assessment Scale) Information Provided By: Patient [...] suspiciousactivity was identified. 01/25/2022 by Irene Han APRN.FORM RAISER Urine Screen Lab Results Component Value Date [...] Urine pH, Pain Ocasio 6.3 02/24/2021 Specific Star,Ur Pain Ocasio 1.012 02/24/2021 Oxidants,Ur 46 02/24/2021 [...] 25, 2022 10:55 AM documented in this encounterGenesis Hospital12-05-2022 Miscellaneous Notes* Telephone Encounter - Kylie [...] advise. Kylie Mosher RN documented in this encounterGenesis Hospital11-30-2022 Miscellaneous Notes* Telephone Encounter - Gunjan Joya LPN - 01/17/2022 9:10 AM EST Spoke with patient, rescheduled appt for tomorrow documented in this encounterGenesis Hospital11-29-2022 Miscellaneous Notes* Telephone Encounter - Irene Han APRN.PEDRO - 01/16/2022 2:34 PM EST PDMP website checked and validated. All prescriptions have been APPROPRIATELY filled. No suspiciousactivity was identified. 01/16/2022 by Irene Han APRN.FORM RAISER Rx sent Irene Han APRN.FORM RAISER * Telephone Encounter - Kristina Pete RN - 01/16/2022 12:48 PM EST Patient phones requesting refills as follows: Requested Prescriptions Pending Prescriptions Disp Refills oxyCODONE IR (ROXICODONE) 10 mg tab 120 tablet 0 Sig: Take 1 tablet by mouth every 4 hours as needed (moderate-severe cancer pain) for up to 30 days. Please review and advise. Kristina Pete RN documented in this encounterGenesis Hospital11-15-2022 Miscellaneous Notes* Telephone Encounter - Caro Srinivasan RN - 01/02/2022 3:41 PM EST [facility] Coordination FOLLOW-UP NOTE Patient identified by name and date of . YES Spoke to voicemail-full so unable to leave message x2 Summary: (Reason for follow-up) Chest tightness Pulmonary f/u needed Echocardiogram needed Concerns: (New Barriers to care) Caro Srinivasan RN January 02, 2022 documented in this encounterGenesis Hospital11-09-2022 History of Present illness Narrative* Sylvia Mancilla APRN.FORM RAISER - 12/27/2021 9:30 AM EST Oncology Progress [...] pneumonitis She saw Dr. Alejandro sarmiento at [facility] for 2nd opinion cell([phone]) She agreed with out plan and recommended [...] Ventolin inhaler and nebulizer as instructed. Saw pulbryon in April. No fevers or chills. Doesn't [...] and TSH, sed rate were reviewed in [facility]. ASSESSMENT AND PLAN: 1. Relapsed Hodgkin [...] visit. Sylvia Mancilla APRN.PEDRO Hematology/Oncology Janae Ortiz/ [facility] [phone] CC: Bee Parra documented in this encounterGenesis Hospital10-31-2022 Miscellaneous Notes* Telephone Encounter - Cheryl [...] advise. Kylie Mosher RN documented in this [facility]10-20-2022 Instructions* Patient Instructions* Nova Leija APRN.CNP [...] under eye as needed documented in this encounterGenesis Hospital10-20-2022 History of Present illness Narrative* Nova [...] C No.3 (B COMPLEX PLUS VITAMIN C) 52-40-22-5-300 mg cap Take 1 tablet by mouth [...] Past Histories independently gathered by the clinical network and threat support specialist and the remaining scribed note accurately describes my personal service to the patient. Nova Leija APRN.CNP December 07, 2021 9:39 AM I spent a total of 25 minutes on the date of the service which included [id number] patient care, completing clinical documentation, performing a medically appropriate examination, counseling and educating the patient/family/caregiver, and ordering medications, tests, or procedures. documented in this encounterGenesis Hospital09-28-2022 History of Present illness Narrative* Cyn [...] pneumonitis She saw Dr. Alejandro sarmiento at [facility] for 2nd opinion cell([phone]) She agreed with out plan and recommended [...] and TSH, sed rate were reviewed in [facility]. ASSESSMENT AND PLAN: 1. Relapsed Hodgkin [...] FACP CC: Bee Parra documented in this encounterGenesis Hospital09-26-2022 Miscellaneous Notes* Telephone Encounter - Jeny Nava RN - 11/13/2021 8:35 AM EDT I have pended a CBC for Celso that she requested with her other labs. Please sign if agreeable. Thank you, MAE Valentin, [facility] documented in this encounterGenesis Hospital09-26-2022 History of Present illness Narrative* Jeny [...] 13, 2021 TIME: 8:41 AM * Bee Singleton, RT(R) - 11/13/2021 8:15 AM EDT RADIOLOGY SERVICE PROGRESS NOTE SERVICE DATE: 11/13/2021 SERVICE TIME: 8:48 AM PATIENT IDENTITY VERIFICATION COMPLETED USING TWO (2) STANDARD IDENTIFIERS: Name and Date of confirmed by patient verbally POST EXAM PIV STATUS: Discontinued PROCEDURE TYPE: NM INJECT: PET/CT BODY SCAN. 12.7 mCi F18 FDG. No other medications given.. ADMINISTRATION TIME: 832 PATIENT DISCHARGED TO: Ambulatory patient, left AR department area. A Diagnostic radioactive procedure has taken place, with no further precautions necessary other than routine body substance precautions. More information regarding radiation safety can be found usingthis link: [email or web address] 20Diagnostic%20Nuclear%20Medicine%20Procedures.pdf SIGNATURE: DIMA Julien) PATIENT NAME: Celso Weller DATE: November 13, 2021 TIME: 8:48 AM PAGER/CONTACT #: documented in this encounterGenesis Hospital09-08-2022 NoteHNO ID: [id number] Author: Irene Han APRN.FORM RAISER Service: ? Author Type: Nurse Practitioner Type: [...] care with [facility] visit 08/02. Referred to [facility] due to proximity of home. Did not [...] upcoming PET scan will show. Modified ESAS ([place] Symptom Assessment Scale) Information Provided By: Patient [...] Lab Results Component Value (more content not included)...[id number] History of Present illness Narrative* Irene Han [...] upcoming PET scan will show. Modified ESAS ([place] Symptom Assessment Scale) Information Provided By: Patient [...] suspiciousactivity was identified. 10/26/2021 by Irene Han APRN.FORM RAISER Urine Screen Lab Results Component Value Date [...] Urine pH, Pain Ocasio 6.3 02/24/2021 Specific Star,Ur Pain Ocasio 1.012 02/24/2021 Oxidants,Ur 46 02/24/2021 [...] 26, 2021 11:07 AM documented in this encounterGenesis Hospital09-07-2022 History of Present illness Narrative* Sylvia [...] pneumonitis She saw Dr. Alejandro sarmiento at [facility] for 2nd opinion cell([phone]) She agreed with out plan and recommended [...] up and C#31 pembro. Patient went to [place] ED 09/20/21 with fever, chills,fatigue. Tested positive [...] and TSH, sed rate were [facility]. ASSESSMENT AND PLAN: 1. Relapsed Hodgkin [...] the visit. Sylvia Mancilla APRN.PEDRO Hematology/Oncology Janae Hernandez [facility]/ [facility] [phone] CC: Bee Parra documented in this encounterGenesis Hospital09-07-2022 Instructions* Patient Instructions* Sylvia Mancilla APRN.CNP - 10/25/2021 10:00 AM EDT Call the office with questions or concerns. Go to ER with any signs of infection like fever of 100.4 or higher. documented in this encounterGenesis Hospital08-29-2022 Miscellaneous Notes* Telephone Encounter - Irene [...] advise. Kristina Pete RN documented in this encounterGenesis Hospital08-15-2022 Miscellaneous Notes* Telephone Encounter - Joanne [...] DAILY Elaine Enriquez LPN documented in this encounterGenesis Hospital08-05-2022 Miscellaneous Notes* Telephone Encounter - Caro [...] Patient reminded of her follow-up appointment with [facility] provider, 10/04/21 Keytruda infusion and then 10/25 OV E Gross and infusion: Yes Next Cosmetologist Apprentice outreach with patient scheduled? No, appointment made PATIENT EDUCATION/REINFORCEMENT Patient has information of when to seek Medical Attention? YES Patient has information of after hours and weekend phone number? 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 Nova Leija APRN.CNP September 05, 2021 5:59 PM documented in this encounterGenesis Hospital07-18-2022 Miscellaneous Notes* Telephone Encounter - Flori Cartagena RN - 09/04/2021 11:32 AM EDT [facility] nurse call to patient and inquired if she was with [facility] Palliative care and she reports her first [...] advise. Flori Cartagena RN documented in this encounterGenesis Hospital06-28-2022 History of Present illness Narrative* Bee Singleton RT(Claudia) - 08/15/2021 12:45 PM EDT RADIOLOGY SERVICE PROGRESS NOTE SERVICE DATE: 08/15/2021 SERVICE TIME: 2:05 PM PATIENT IDENTITY VERIFICATION COMPLETED USING TWO (2) STANDARD IDENTIFIERS: Name and Date of confirmed by patient verbally POST EXAM PIV STATUS: Discontinued PROCEDURE TYPE: NM INJECT: PET/CT BODY SCAN. 11.6 mCi F18 FDG. No other medications given.. ADMINISTRATION TIME: 1256 PATIENT DISCHARGED TO: Ambulatory patient, left AR department area. A Diagnostic radioactive procedure has taken place, with no further precautions necessary other than routine body substance precautions. More information regarding radiation safety can be found usingthis link: [email or web address] 20Diagnostic%20Nuclear%20Medicine%20Procedures.pdf SIGNATURE: RT Anaya(Claudia) PATIENT NAME: Celso Weller DATE: August 15, 2021 TIME: 2:05 PM PAGER/CONTACT #: documented in this encounterGenesis Hospital06-28-2022 Miscellaneous Notes* Telephone Encounter - Irene Rai APRN.CNP - 08/15/2021 12:36 PM EDT [facility] All prescriptions have been APPROPRIATELY filled. No suspiciousactivity was identified. Oxycodone e-scribed. Irene Rai APRN.PEDRO * Telephone Encounter - Kristina Pete RN - 08/15/2021 7:50 AM EDT Patient had requested referral to [facility] palliative care 08/03. TC spoke to Celso Weller patient is not able to start care with [facility] until middle of August. Will need refills until she establishes. Patient phones requesting refills as follows: Pending Prescriptions Disp Refills OXYCODONE 10 MG TABLET 120 tablet 0 Sig: Take 1 tablet by mouth every 4 hours as needed (moderate-severe cancer pain) for up to 30 days. SHELBIE Class: C-II KAREN: No Please review and advise. Kristina Pete RN documented in this encounterGenesis Hospital06-16-2022 Miscellaneous Notes* Telephone Encounter - Kristina Pete RN - 08/03/2021 8:21 AM EDT Patient has requested palliative services closer to her home referral faxed to [facility] palliative care. [phone] Kristina Pete RN documented in this encounterGenesis Hospital06-10-2022 History of Present illness Narrative* Nova Leija APRN.PEDRO - 07/28/2021 7:59 AM EDT SKIN EXAM [...] C No.3 (B COMPLEX PLUS VITAMIN C) 26-95-82-5-300 mg cap Take 1 tablet by mouth [...] 300 mg BID until completed (from ED) residential management -continue topical clindamycin 1% lotion -antibacterial [...] Past Histories independently gathered by the clinical network and threat support specialist and the remaining scribed note accurately describes my personal service to the patient. Nova Leija APRN.CNP July 28, 2021 8:03 AM documented in this encounterGenesis Hospital05-24-2022 Miscellaneous Notes* Telephone Encounter - Irene Han APRN.CNP - 2021 11:31 AM EDT PDMP website checked and validated. All prescriptions have been APPROPRIATELY filled. No suspiciousactivity was identified. 2021 by Irene Han APRN.CNP Last Palliative Care visit: 05/17/21 Next scheduled Palliative Care visit: 08/02/21 Rx sent. Earliest fill 5/27/22 Irene Han APRN.FORM RAISER * Telephone Encounter - Flori Cartagena RN [...] advise. Flori Cartagena RN documented in this encounterGenesis Hospital05-13-2022 Miscellaneous Notes* Telephone Encounter - Joanne [...] No Elaine Enriquez LPN documented in this encounterGenesis Hospital04-28-2022 Miscellaneous Notes* Telephone Encounter - Irene Han APRN.FORM RAISER - 06/15/2021 5:05 PM EDT PDMP website checked and validated. All prescriptions have been APPROPRIATELY filled. No suspiciousactivity was identified. 06/15/2021 by Irene Han APRN.FORM RAISER Rx sent Irene Han APRN.CNP * Telephone [...] advise. Kristina Pete RN documented in this encounterGenesis Hospital04-27-2022 History of Present illness Narrative* Cyn [...] pneumonitis She saw Dr. Alejandro sarmiento at [facility] for 2nd opinion cell([phone]) She agreed with out plan and recommended [...] the spleen, liver and lymph node at [facility] Interval history: Patient is here for [...] and TSH, sed rate were [facility]. ASSESSMENT AND PLAN: 1. Relapsed Hodgkin [...] FACP CC: Bee Parra documented in this encounterGenesis Hospital04-01-2022 Miscellaneous Notes* Telephone Encounter - Marilyn Hughes RN - 05/19/2021 9:09 AM EDT Pt with c/o sinus congestion, headache, cough, fatigue, T Max 101.3 last evening, then 'fever broke' afebrile this am. Dr Hernandez notified and Z-pack sent to preferred pharmacy. Pt aware to call for worsening symptoms or temp >100.4 . Verbalized acknowledgement. Marilyn Hughes RN documented in this encounterGenesis Hospital03-30-2022 Miscellaneous Notes* Telephone Encounter - RHETT [...] resource F/U APPOINTMENT: PRN GALLO Mesa Senior Compliance Review Specialist [facility] Oncology documented in this encounterGenesis Hospital03-30-2022 Miscellaneous Notes* Telephone Encounter - RHETT Mesa - 05/17/2021 1:58 PM EDT SOCIAL WORK FOLLOW UP NOTE: [facility] Date of service:05/17/2021 Celso Weller is being seen for a follow up social work visit. Today's visit includes: patient TOPICS ADDRESSED: mental health needs Advised patient that SRINIVASAN Garsia from [facility] asked me to give patient local behavioral health resources. I forwarded this request to MATILDE Spear, who is a behavior health social media director and is expert in these types of resources. I advised patient that Katarzyna should be reaching out to her. PLAN: Continue follow up as needed F/U APPOINTMENT: PRN GALLO [place] Senior Compliance Review Specialist [facility] Oncology documented in this encounterGenesis Hospital03-30-2022 Instructions* Patient Instructions* Irene Han APRN.FORM RAISER - 05/17/2021 11:35 AM EDT Irene Han NP-C Department of Palliative and Supportive Care Palliative Care - Specialty services in symptom management and support For questions or prescription refills, call: Saturday - Saturday 9AM-5PM Chantal Newberry RN, BSN - Cosmetologist Apprentice [phone] Please call 5 days in advance Evenings, Weekends, Holidays: [phone] (ask for palliative medicine on-call provider) For appointments, cancellations or reschedule, call: [phone] documented in this encounterGenesis Hospital03-30-2022 History of Present illness Narrative* Irene Han APRN.CNP - 05/17/2021 11:00 AM EDT PALLIATIVE [...] (on AC). She is transferring care to [facility] for palliative care. She has previously followed with Dr. Mosquera (last appt 04/12/2020) for management of anxiety, depression, neuropathy, and pain. Subjective Celso presents today alone. Reports feeling fairly well. Recently returned from vacation with friends in [place] where she had a great time although [...] Dr. Mosquera at last visit. Modified ESAS ([place] Symptom Assessment Scale) Information Provided By: Patient [...] suspiciousactivity was identified. 05/17/2021 by Irene Han APRN.FORM RAISER Urine Screen Lab Results Component Value Date [...] Urine pH, Pain Ocasio 6.3 02/24/2021 Specific Star,Ur Pain Ocasio 1.012 02/24/2021 Oxidants,Ur 46 02/24/2021 [...] - she agreed. Will reach out to MikaylaNancy Liborio to help with resources near her home. - would advise addition of SSRI or SNRI (Cymbalta) if persisting. Medical Decision Making: Problems: Moderate: 2+ stable chronic illnesses Risk: High: Drug therapy requiring intensive monitoring Medical Decision Making Level: 4 - Moderate Existence of Advance Directives: Unknown Next Visit: 6-8 Weeks in person Irene Han APRN.CNP May 17, 2021 7:01 AM documented in this encounterGenesis Hospital12-28-2021 History of Present illness Narrative* Bee [...] 1239 PATIENT DISCHARGED TO: Ambulatory patient, left AR department area. A Diagnostic radioactive procedure has taken place, with no further precautions necessary other than routine body substance precautions. More information regarding radiation safety can be found usingthis link: [email or web address] 20Diagnostic%20Nuclear%20Medicine%20Procedures.pdf SIGNATURE: DIMA Julien) PATIENT NAME: Celso Weller DATE: February 14, 2021 TIME: 12:47 PM PAGER/CONTACT #: documented in this encounterGenesis Hospital12-28-2021 Nurse Note* Mitzi Alcantara RN - [...] DATE: February 14, 2021 TIME: 12:29 PM [facility]12-28-[facility] Nurse Note* Mitzi Alcantara RN - [...] 2021 TIME: 12:29 PM documented in this encounterGenesis Hospital08-31-2021 History of Past illness Narrative* Problem Noted Date Diagnosed Date Resolved Date Radiation induced neuropathy 10/18/2020 03/07/2023 Menorrhagia with regular cycle 03/15/2017 01/01/2018 Overview: Added automatically from request for surgery [id number] History of pulmonary embolism 04/25/2016 01/01/2018 Neoplastic [...] FOLLOW-UP 10/27/2012 Overview: 32 yo female from [place], [place]. Family involved with care, at bedside. plan to discharge patient home - will arrange with case management for post op care as needed - follow up in OPD in 7-10 days Post-op pain 10/27/2012 12/26/2015 Overview: currently well controlled with SHRUB PLANTER. will start PO pain meds today 10/27. [...] by counting pads --should f/u with her COW TENDER provider after BMT Premature menopause 12/26/19 16 Postmenopausal atrophic vaginitis 12/26/2015 Dyspareunia 12/26/2015 documented as of this encounter (statuses as of 03/28/2023) [facility]08-31-[facility] History of Past illness Narrative* Problem Noted Date Diagnosed Date Resolved Date Radiation induced neuropathy 10/18/2020 03/07/2023 Menorrhagia with regular cycle 03/15/2017 01/01/2018 Overview: Added automatically from request for surgery [id number] History of pulmonary embolism 04/25/2016 01/01/2018 Neoplastic [...] FOLLOW-UP 10/27/2012 Overview: 32 yo female from [place]. Family involved with care, at bedside. plan to discharge patient home - will arrange with case management for post op care as needed - follow up in OPD in 7-10 days Post-op pain 10/27/2012 12/26/2015 Overview: currently well controlled with SHRUB PLANTER. will start PO pain meds today 10/27. [...] by counting pads --should f/u with her COW TENDER provider after BMT Premature menopause 12/26/19 16 Postmenopausal atrophic vaginitis 12/26/2015 Dyspareunia 12/26/2015 documented as of this encounter (statuses as of 03/28/2023) [facility]08-31-[facility] History of Past illness Narrative* Problem Noted Date Diagnosed Date Resolved Date Radiation induced neuropathy 10/18/2020 03/07/2023 Menorrhagia with regular cycle 03/15/2017 01/01/2018 Overview: Added automatically from request for surgery [id number] History of pulmonary embolism 04/25/2016 01/01/2018 Neoplastic [...] FOLLOW-UP 10/27/2012 Overview: 32 yo female from [place], [place]. Family involved with care, at bedside. plan to discharge patient home - will arrange with case management for post op care as needed - follow up in OPD in 7-10 days Post-op pain 10/27/2012 12/26/2015 Overview: currently well controlled with SHRUB PLANTER. will start PO pain meds today 10/27. [...] by counting pads --should f/u with her COW TENDER provider after BMT Premature menopause 12/26/19 16 Postmenopausal atrophic vaginitis 12/26/2015 Dyspareunia 12/26/2015 documented as of this encounter (statuses as of 03/28/2023) [facility] History of Past illness Narrative* Problem Noted Date Diagnosed Date Resolved Date Radiation induced neuropathy 10/18/2020 03/07/2023 Menorrhagia with regular cycle 03/15/2017 01/01/2018 Overview: Added automatically from request for surgery [id number] History of pulmonary embolism 04/25/2016 01/01/2018 Neoplastic [...] FOLLOW-UP 10/27/2012 Overview: 32 yo female from [place]. Family involved with care, at bedside. plan to discharge patient home - will arrange with case management for post op care as needed - follow up in OPD in 7-10 days Post-op pain 10/27/2012 12/26/2015 Overview: currently well controlled with SHRUB PLANTER. will start PO pain meds today 10/27. [...] by counting pads --should f/u with her COW TENDER provider after BMT Premature menopause 12/26/19 16 Postmenopausal atrophic vaginitis 12/26/2015 Dyspareunia 12/26/2015 documented as of this encounter (statuses as of 04/01/2023) [facility] of Past illness Narrative* Problem Noted Date Diagnosed Date Resolved Date Radiation induced neuropathy 10/18/2020 03/07/2023 Menorrhagia with regular cycle 03/15/2017 01/01/2018 Overview: Added automatically from request for surgery [id number] History of pulmonary embolism 04/25/2016 01/01/2018 Neoplastic [...] FOLLOW-UP 10/27/2012 Overview: 32 yo female from [place]. Family involved with care, at bedside. plan to discharge patient home - will arrange with case management for post op care as needed - follow up in OPD in 7-10 days Post-op pain 10/27/2012 12/26/2015 Overview: currently well controlled with SHRUB PLANTER. will start PO pain meds today 10/27. [...] by counting pads --should f/u with her COW TENDER provider after BMT Premature menopause 12/26/19 16 Postmenopausal atrophic vaginitis 12/26/2015 Dyspareunia 12/26/2015 documented as of this encounter (statuses as of 04/09/2023) [facility] of Past illness Narrative* Problem Noted Date Diagnosed Date Resolved Date Radiation induced neuropathy 10/18/2020 03/07/2023 Menorrhagia with regular cycle 03/15/2017 01/01/2018 Overview: Added automatically from request for surgery [id number] History of pulmonary embolism 04/25/2016 01/01/2018 Neoplastic [...] FOLLOW-UP 10/27/2012 Overview: 32 yo female from [place]. Family involved with care, at bedside. plan to discharge patient home - will arrange with case management for post op care as needed - follow up in OPD in 7-10 days Post-op pain 10/27/2012 12/26/2015 Overview: currently well controlled with SHRUB PLANTER. will start PO pain meds today 10/27. [...] by counting pads --should f/u with her COW TENDER provider after BMT Premature menopause 12/26/19 16 Postmenopausal atrophic vaginitis 12/26/2015 Dyspareunia 12/26/2015 documented as of this encounter (statuses as of 04/17/2023) [facility] of Past illness Narrative* Problem Noted Date Diagnosed Date Resolved Date Radiation induced neuropathy 10/18/2020 03/07/2023 Menorrhagia with regular cycle 03/15/2017 01/01/2018 Overview: Added automatically from request for surgery [id number] History of pulmonary embolism 04/25/2016 01/01/2018 Neoplastic [...] FOLLOW-UP 10/27/2012 Overview: 32 yo female from [place]. Family involved with care, at bedside. plan to discharge patient home - will arrange with case management for post op care as needed - follow up in OPD in 7-10 days Post-op pain 10/27/2012 12/26/2015 Overview: currently well controlled with SHRUB PLANTER. will start PO pain meds today 10/27. [...] by counting pads --should f/u with her COW TENDER provider after BMT Premature menopause 12/26/19 16 Postmenopausal atrophic vaginitis 12/26/2015 Dyspareunia 12/26/2015 documented as of this encounter (statuses as of 04/19/2023) [facility] of Past illness Narrative* Problem Noted Date Diagnosed Date Resolved Date Radiation induced neuropathy 10/18/2020 03/07/2023 Menorrhagia with regular cycle 03/15/2017 01/01/2018 Overview: Added automatically from request for surgery [id number] History of pulmonary embolism 04/25/2016 01/01/2018 Neoplastic [...] FOLLOW-UP 10/27/2012 Overview: 32 yo female from [place]. Family involved with care, at bedside. plan to discharge patient home - will arrange with case management for post op care as needed - follow up in OPD in 7-10 days Post-op pain 10/27/2012 12/26/2015 Overview: currently well controlled with SHRUB PLANTER. will start PO pain meds today 10/27. [...] by counting pads --should f/u with her COW TENDER provider after BMT Premature menopause 12/26/19 16 Postmenopausal atrophic vaginitis 12/26/2015 Dyspareunia 12/26/2015 documented as of this encounter (statuses as of 04/20/2023) [facility] of Past illness Narrative* Problem Noted Date Diagnosed Date Resolved Date Radiation induced neuropathy 10/18/2020 03/07/2023 Menorrhagia with regular cycle 03/15/2017 01/01/2018 Overview: Added automatically from request for surgery [id number] History of pulmonary embolism 04/25/2016 01/01/2018 Neoplastic [...] FOLLOW-UP 10/27/2012 Overview: 32 yo female from [place]. Family involved with care, at bedside. plan to discharge patient home - will arrange with case management for post op care as needed - follow up in OPD in 7-10 days Post-op pain 10/27/2012 12/26/2015 Overview: currently well controlled with SHRUB PLANTER. will start PO pain meds today 10/27. [...] by counting pads --should f/u with her COW TENDER provider after BMT Premature menopause 12/26/19 16 Postmenopausal atrophic vaginitis 12/26/2015 Dyspareunia 12/26/2015 documented as of this encounter (statuses as of 05/07/2023) [facility] Past [facility] Narrative* Problem Noted Date Diagnosed Date Resolved Date Radiation induced neuropathy 10/18/2020 03/07/2023 Menorrhagia with regular cycle 03/15/2017 01/01/2018 Overview: Added automatically from request for surgery [id number] History of pulmonary embolism 04/25/2016 01/01/2018 Neoplastic [...] FOLLOW-UP 10/27/2012 Overview: 32 yo female from [place], [place]. Family involved with care, at bedside. plan to discharge patient home - will arrange with case management for post op care as needed - follow up in OPD in 7-10 days Post-op pain 10/27/2012 12/26/2015 Overview: currently well controlled with [employer]. will start PO pain meds today 10/27. [...] by counting pads --should f/u with her [employer] provider after BMT Premature menopause 12/26/19 16 Postmenopausal atrophic vaginitis 12/26/2015 Dyspareunia 12/26/2015 documented as of this encounter (statuses as of 05/10/2023) [facility] History of Past illness Narrative* Problem Noted Date Diagnosed Date Resolved Date Radiation induced neuropathy 10/18/2020 03/07/2023 Menorrhagia with regular cycle 03/15/2017 01/01/2018 Overview: Added automatically from request for surgery [id number] History of pulmonary embolism 04/25/2016 01/01/2018 Neoplastic [...] FOLLOW-UP 10/27/2012 Overview: 32 yo female from [place], [place]. Family involved with care, at bedside. plan to discharge patient home - will arrange with case management for post op care as needed - follow up in OPD in 7-10 days Post-op pain 10/27/2012 12/26/2015 Overview: currently well controlled with [employer]. will start PO pain meds today 10/27. [...] by counting pads --should f/u with her [employer] provider after BMT Premature menopause 12/26/19 16 Postmenopausal atrophic vaginitis 12/26/2015 Dyspareunia 12/26/2015 documented as of this encounter (statuses as of 05/13/2023) [facility] History of Past illness Narrative* Problem Noted Date Diagnosed Date Resolved Date Radiation induced neuropathy 10/18/2020 03/07/2023 Menorrhagia with regular cycle 03/15/2017 01/01/2018 Overview: Added automatically from request for surgery [id number] History of pulmonary embolism 04/25/2016 01/01/2018 Neoplastic [...] FOLLOW-UP 10/27/2012 Overview: 32 yo female from [place], [place]. Family involved with care, at bedside. plan to discharge patient home - will arrange with case management for post op care as needed - follow up in OPD in 7-10 days Post-op pain 10/27/2012 12/26/2015 Overview: currently well controlled with [employer]. will start PO pain meds today 10/27. [...] by counting pads --should f/u with her [employer] provider after BMT Premature menopause 12/26/19 16 Postmenopausal atrophic vaginitis 12/26/2015 Dyspareunia 12/26/2015 documented as of this encounter (statuses as of 05/15/2023) [facility] History of Past illness Narrative* Problem Noted Date Diagnosed Date Resolved Date Radiation induced neuropathy 10/18/2020 03/07/2023 Menorrhagia with regular cycle 03/15/2017 01/01/2018 Overview: Added automatically from request for surgery [id number] History of pulmonary embolism 04/25/2016 01/01/2018 Neoplastic [...] FOLLOW-UP 10/27/2012 Overview: 32 yo female from [place], [place]. Family involved with care, at bedside. plan to discharge patient home - will arrange with case management for post op care as needed - follow up in OPD in 7-10 days Post-op pain 10/27/2012 12/26/2015 Overview: currently well controlled with [employer]. will start PO pain meds today 10/27. [...] by counting pads --should f/u with her [employer] provider after BMT Premature menopause 12/26/19 16 Postmenopausal atrophic vaginitis 12/26/2015 Dyspareunia 12/26/2015 documented as of this encounter (statuses as of 05/21/2023) [facility] History of Past illness Narrative* Problem Noted Date Diagnosed Date Resolved Date Radiation induced neuropathy 10/18/2020 03/07/2023 Menorrhagia with regular cycle 03/15/2017 01/01/2018 Overview: Added automatically from request for surgery [id number] History of pulmonary embolism 04/25/2016 01/01/2018 Neoplastic [...] FOLLOW-UP 10/27/2012 Overview: 32 yo female from [place], [place]. Family involved with care, at bedside. plan to discharge patient home - will arrange with case management for post op care as needed - follow up in OPD in 7-10 days Post-op pain 10/27/2012 12/26/2015 Overview: currently well controlled with [employer]. will start PO pain meds today 10/27. [...] by counting pads --should f/u with her [employer] provider after BMT Premature menopause 12/26/19 16 Postmenopausal atrophic vaginitis 12/26/2015 Dyspareunia 12/26/2015 documented as of this encounter (statuses as of 05/22/2023) [facility] History of Past illness Narrative* Problem Noted Date Diagnosed Date Resolved Date Radiation induced neuropathy 10/18/2020 03/07/2023 Menorrhagia with regular cycle 03/15/2017 01/01/2018 Overview: Added automatically from request for surgery [id number] History of pulmonary embolism 04/25/2016 01/01/2018 Neoplastic [...] FOLLOW-UP 10/27/2012 Overview: 32 yo female from [place]. Family involved with care, at bedside. plan to discharge patient home - will arrange with case management for post op care as needed - follow up in OPD in 7-10 days Post-op pain 10/27/2012 12/26/2015 Overview: currently well controlled with [employer]. will start PO pain meds today 10/27. [...] by counting pads --should f/u with her [employer] provider after BMT Premature menopause 12/26/19 16 Postmenopausal atrophic vaginitis 12/26/2015 Dyspareunia 12/26/2015 documented as of this encounter (statuses as of 05/30/2023) [facility] History of Past illness Narrative* Problem Noted Date Diagnosed Date Resolved Date Radiation induced neuropathy 10/18/2020 03/07/2023 Menorrhagia with regular cycle 03/15/2017 01/01/2018 Overview: Added automatically from request for surgery [id number] History of pulmonary embolism 04/25/2016 01/01/2018 Neoplastic [...] FOLLOW-UP 10/27/2012 Overview: 32 yo female from [place]. Family involved with care, at bedside. plan to discharge patient home - will arrange with case management for post op care as needed - follow up in OPD in 7-10 days Post-op pain 10/27/2012 12/26/2015 Overview: currently well controlled with [employer]. will start PO pain meds today 10/27. [...] by counting pads --should f/u with her [employer] provider after BMT Premature menopause 12/26/19 16 Postmenopausal atrophic vaginitis 12/26/2015 Dyspareunia 12/26/2015 documented as of this encounter (statuses as of 05/31/2023) [facility] History of Past illness Narrative* Problem Noted Date Diagnosed Date Resolved Date Radiation induced neuropathy 10/18/2020 03/07/2023 Menorrhagia with regular cycle 03/15/2017 01/01/2018 Overview: Added automatically from request for surgery [id number] History of pulmonary embolism 04/25/2016 01/01/2018 Neoplastic [...] FOLLOW-UP 10/27/2012 Overview: 32 yo female from [place]. Family involved with care, at bedside. plan to discharge patient home - will arrange with case management for post op care as needed - follow up in OPD in 7-10 days Post-op pain 10/27/2012 12/26/2015 Overview: currently well controlled with [employer]. will start PO pain meds today 10/27. [...] by counting pads --should f/u with her [employer] provider after BMT Premature menopause 12/26/19 16 Postmenopausal atrophic vaginitis 12/26/2015 Dyspareunia 12/26/2015 documented as of this encounter (statuses as of 05/31/2023) [facility] History of Past illness Narrative* Problem Noted Date Diagnosed Date Resolved Date Radiation induced neuropathy 10/18/2020 03/07/2023 Menorrhagia with regular cycle 03/15/2017 01/01/2018 Overview: Added automatically from request for surgery [id number] History of pulmonary embolism 04/25/2016 01/01/2018 Neoplastic [...] FOLLOW-UP 10/27/2012 Overview: 32 yo female from [place]. Family involved with care, at bedside. plan to discharge patient home - will arrange with case management for post op care as needed - follow up in OPD in 7-10 days Post-op pain 10/27/2012 12/26/2015 Overview: currently well controlled with [employer]. will start PO pain meds today 10/27. [...] by counting pads --should f/u with her [employer] provider after BMT Premature menopause 12/26/19 16 Postmenopausal atrophic vaginitis 12/26/2015 Dyspareunia 12/26/2015 documented as of this encounter (statuses as of 06/01/2023) [facility] History of Past illness Narrative* Problem Noted Date Resolved Date Menorrhagia with regular cycle 03/15/2017 1 03/03/2017 Overview: Added automatically from request for surgery [id number] History of pulmonary embolism 04/25/2016 Neoplastic (malignant) [...] FOLLOW-UP 10/27/20122015 Overview: 32 yo female from [place]. Family involved with care, at bedside. plan to discharge patient home - will arrange with case management for post op care as needed - follow up in OPD in 7-10 days Post-op pain 10/27/2012 12/26/2015 Overview: currently well controlled with [employer]. will start PO pain meds today 10/27. [...] by counting pads --should f/u with her [employer] provider after BMT Premature menopause 12/26/2015 Postmenopausal atrophic vaginitis 12/26/2015 Dyspareunia 12/26/2015 documented as of this encounter (statuses as of 05/17/2021) [facility] History of Past illness Narrative* Problem Noted Date Resolved Date Menorrhagia with regular cycle 03/15/2017 1 03/03/2017 Overview: Added automatically from request for surgery [id number] History of pulmonary embolism 04/25/2016 Neoplastic (malignant) [...] FOLLOW-UP 10/27/20122015 Overview: 32 yo female from [place]. Family involved with care, at bedside. plan to discharge patient home - will arrange with case management for post op care as needed - follow up in OPD in 7-10 days Post-op pain 10/27/2012 12/26/2015 Overview: currently well controlled with [employer]. will start PO pain meds today 10/27. [...] by counting pads --should f/u with her [employer] provider after BMT Premature menopause 12/26/2015 Postmenopausal atrophic vaginitis 12/26/2015 Dyspareunia 12/26/2015 documented as of this encounter (statuses as of 05/17/2021) [facility] History of Past illness Narrative* Problem Noted Date Resolved Date Menorrhagia with regular cycle 03/15/2017 1 03/03/2017 Overview: Added automatically from request for surgery [id number] History of pulmonary embolism 04/25/2016 Neoplastic (malignant) [...] FOLLOW-UP 10/27/20122015 Overview: 32 yo female from [place]. Family involved with care, at bedside. plan to discharge patient home - will arrange with case management for post op care as needed - follow up in OPD in 7-10 days Post-op pain 10/27/2012 12/26/2015 Overview: currently well controlled with [employer]. will start PO pain meds today 10/27. [...] by counting pads --should f/u with her [employer] provider after BMT Premature menopause 12/26/2015 Postmenopausal atrophic vaginitis 12/26/2015 Dyspareunia 12/26/2015 documented as of this encounter (statuses as of 05/17/2021) [facility] History of Past illness Narrative* Problem Noted Date Resolved Date Menorrhagia with regular cycle 03/15/2017 1 03/03/2017 Overview: Added automatically from request for surgery [id number] History of pulmonary embolism 04/25/2016 Neoplastic (malignant) [...] FOLLOW-UP 10/27/20122015 Overview: 32 yo female from [place]. Family involved with care, at bedside. plan to discharge patient home - will arrange with case management for post op care as needed - follow up in OPD in 7-10 days Post-op pain 10/27/2012 12/26/2015 Overview: currently well controlled with [employer]. will start PO pain meds today 10/27. [...] by counting pads --should f/u with her [employer] provider after BMT Premature menopause 12/26/2015 Postmenopausal atrophic vaginitis 12/26/2015 Dyspareunia 12/26/2015 documented as of this encounter (statuses as of 05/17/2021) [facility] History of Past illness Narrative* Problem Noted Date Resolved Date Menorrhagia with regular cycle 03/15/2017 1 03/03/2017 Overview: Added automatically from request for surgery [id number] History of pulmonary embolism 04/25/2016 Neoplastic (malignant) [...] FOLLOW-UP 10/27/20122015 Overview: 32 yo female from [place]. Family involved with care, at bedside. plan to discharge patient home - will arrange with case management for post op care as needed - follow up in [place]PD in 7-10 days Post-op pain 10/27/2012 12/26/2015 Overview: currently well controlled with [employer]. will start PO pain meds today 10/27. [...] by counting pads --should f/u with her [employer] provider after BMT Premature menopause 12/26/2015 Postmenopausal atrophic vaginitis 12/26/2015 Dyspareunia 12/26/2015 documented as of this encounter (statuses as of 05/17/2021) [facility] of Past illness Narrative* Problem Noted Date Resolved Date Menorrhagia with regular cycle 03/15/2017 1 03/03/2017 Overview: Added automatically from request for surgery [id number] History of pulmonary embolism 04/25/2016 Neoplastic (malignant) [...] FOLLOW-UP 10/27/20122015 Overview: 32 yo female from [place]. Family involved with care, at bedside. plan to discharge patient home - will arrange with case management for post op care as needed - follow up in [place]PD in 7-10 days Post-op pain 10/27/2012 12/26/2015 Overview: currently well controlled with [employer]. will start PO pain meds today 10/27. [...] by counting pads --should f/u with her [employer] provider after BMT Premature menopause 12/26/2015 Postmenopausal atrophic vaginitis 12/26/2015 Dyspareunia 12/26/2015 documented as of this encounter (statuses as of 05/17/2021) [facility] Narrative* Problem Noted Date Resolved Date Menorrhagia with regular cycle 03/15/2017 1 03/03/2017 Overview: Added automatically from request for surgery [id number] History of pulmonary embolism 04/25/2016 Neoplastic (malignant) [...] FOLLOW-UP 10/27/20122015 Overview: 32 yo female from [place]. Family involved with care, at bedside. plan to discharge patient home - will arrange with case management for post op care as needed - follow up in [place]PD in 7-10 days Post-op pain 10/27/2012 12/26/2015 Overview: currently well controlled with [employer]. will start PO pain meds today 10/27. [...] by counting pads --should f/u with her [employer] provider after BMT Premature menopause 12/26/2015 Postmenopausal atrophic vaginitis 12/26/2015 Dyspareunia 12/26/2015 documented as of this encounter (statuses as of 05/19/2021) [facility] of Past illness Narrative* Problem Noted Date Resolved Date Menorrhagia with regular cycle 03/15/2017 1 03/03/2017 Overview: Added automatically from request for surgery [id number] History of pulmonary embolism 04/25/2016 Neoplastic (malignant) [...] FOLLOW-UP 10/27/20122015 Overview: 32 yo female from [place]. Family involved with care, at bedside. plan to discharge patient home - will arrange with case management for post op care as needed - follow up in [place]PD in 7-10 days Post-op pain 10/27/2012 12/26/2015 Overview: currently well controlled with [employer]. will start PO pain meds today 10/27. [...] by counting pads --should f/u with her [employer] provider after BMT Premature menopause 12/26/2015 Postmenopausal atrophic vaginitis 12/26/2015 Dyspareunia 12/26/2015 documented as of this encounter (statuses as of 06/06/2021) [facility] of Past [facility] Narrative* Problem Noted Date Resolved Date Menorrhagia with regular cycle 03/15/2017 1 03/03/2017 Overview: Added automatically from request for surgery [id number] History of pulmonary embolism 04/25/2016 Neoplastic (malignant) [...] FOLLOW-UP 10/27/20122015 Overview: 32 yo female from [place]. Family involved with care, at bedside. plan to discharge patient home - will arrange with case management for post op care as needed - follow up in OPD in 7-10 days Post-op pain 10/27/2012 12/26/2015 Overview: currently well controlled with [employer]. will start PO pain meds today 10/27. [...] by counting pads --should f/u with her [employer] provider after BMT Premature menopause 12/26/2015 Postmenopausal atrophic vaginitis 12/26/2015 Dyspareunia 12/26/2015 documented as of this encounter (statuses as of 06/07/2021) [facility] of Past [facility] Narrative* Problem Noted Date Resolved Date Menorrhagia with regular cycle 03/15/2017 1 03/03/2017 Overview: Added automatically from request for surgery [id number] History of pulmonary embolism 04/25/2016 Neoplastic (malignant) [...] FOLLOW-UP 10/27/20122015 Overview: 32 yo female from [place]. Family involved with care, at bedside. plan to discharge patient home - will arrange with case management for post op care as needed - follow up in [place]PD in 7-10 days Post-op pain 10/27/2012 12/26/2015 Overview: currently well controlled with [employer]. will start PO pain meds today 10/27. [...] by counting pads --should f/u with her [employer] provider after BMT Premature menopause 12/26/2015 Postmenopausal atrophic vaginitis 12/26/2015 Dyspareunia 12/26/2015 documented as of this encounter (statuses as of 06/14/2021) [facility] Narrative* Problem Noted Date Resolved Date Menorrhagia with regular cycle 03/15/2017 1 03/03/2017 Overview: Added automatically from request for surgery [id number] History of pulmonary embolism 04/25/2016 Neoplastic (malignant) [...] FOLLOW-UP 10/27/20122015 Overview: 32 yo female from [place]. Family involved with care, at bedside. plan to discharge patient home - will arrange with case management for post op care as needed - follow up in [place]PD in 7-10 days Post-op pain 10/27/2012 12/26/2015 Overview: currently well controlled with [employer]. will start PO pain meds today 10/27. [...] by counting pads --should f/u with her [employer] provider after BMT Premature menopause 12/26/2015 Postmenopausal atrophic vaginitis 12/26/2015 Dyspareunia 12/26/2015 documented as of this encounter (statuses as of 06/14/2021) [facility] Narrative* Problem Noted Date Resolved Date Menorrhagia with regular cycle 03/15/2017 1 03/03/2017 Overview: Added automatically from request for surgery [id number] History of pulmonary embolism 04/25/2016 Neoplastic (malignant) [...] FOLLOW-UP 10/27/20122015 Overview: 32 yo female from [place]. Family involved with care, at bedside. plan to discharge patient home - will arrange with case management for post op care as needed - follow up in [place]PD in 7-10 days Post-op pain 10/27/2012 12/26/2015 Overview: currently well controlled with [employer]. will start PO pain meds today 10/27. [...] by counting pads --should f/u with her [employer] provider after BMT Premature menopause 12/26/2015 Postmenopausal atrophic vaginitis 12/26/2015 Dyspareunia 12/26/2015 documented as of this encounter (statuses as of 06/15/2021) [facility] Narrative* Problem Noted Date Resolved Date Menorrhagia with regular cycle 03/15/2017 1 03/03/2017 Overview: Added automatically from request for surgery [id number] History of pulmonary embolism 04/25/2016 Neoplastic (malignant) [...] FOLLOW-UP 10/27/20122015 Overview: 32 yo female from [place] Family involved with care, at bedside. plan to discharge patient home - will arrange with case management for post op care as needed - follow up in [place]PD in 7-10 days Post-op pain 10/27/2012 12/26/2015 Overview: currently well controlled with [employer]. will start PO pain meds today 10/27. [...] by counting pads --should f/u with her [employer] provider after BMT Premature menopause 12/26/2015 Postmenopausal atrophic vaginitis 12/26/2015 Dyspareunia 12/26/2015 documented as of this encounter (statuses as of 06/30/2021) [facility] Narrative* Problem Noted Date Resolved Date Menorrhagia with regular cycle 03/15/2017 1 03/03/2017 Overview: Added automatically from request for surgery [id number] History of pulmonary embolism 04/25/2016 Neoplastic (malignant) [...] FOLLOW-UP 10/27/20122015 Overview: 32 yo female from [place]. Family involved with care, at bedside. plan to discharge patient home - will arrange with case management for post op care as needed - follow up in [place]PD in 7-10 days Post-op pain 10/27/2012 12/26/2015 Overview: currently well controlled with [employer]. will start PO pain meds today 10/27. [...] by counting pads --should f/u with her [employer] provider after BMT Premature menopause 12/26/2015 Postmenopausal atrophic vaginitis 12/26/2015 Dyspareunia 12/26/2015 documented as of this encounter (statuses as of 07/05/2021) [facility] Narrative* Problem Noted Date Resolved Date Menorrhagia with regular cycle 03/15/2017 1 03/03/2017 Overview: Added automatically from request for surgery [id number] History of pulmonary embolism 04/25/2016 Neoplastic (malignant) [...] FOLLOW-UP 10/27/20122015 Overview: 32 yo female from [place] Family involved with care, at bedside. plan to discharge patient home - will arrange with case management for post op care as needed - follow up in [place]PD in 7-10 days Post-op pain 10/27/2012 12/26/2015 Overview: currently well controlled with [employer]. will start PO pain meds today 10/27. [...] by counting pads --should f/u with her [employer] provider after BMT Premature menopause 12/26/2015 Postmenopausal atrophic vaginitis 12/26/2015 Dyspareunia 12/26/2015 documented as of this encounter (statuses as of 07/06/2021) [facility] Narrative* Problem Noted Date Resolved Date Menorrhagia with regular cycle 03/15/2017 1 03/03/2017 Overview: Added automatically from request for surgery [id number] History of pulmonary embolism 04/25/2016 Neoplastic (malignant) [...] FOLLOW-UP 10/27/20122015 Overview: 32 yo female from [place] Family involved with care, at bedside. plan to discharge patient home - will arrange with case management for post op care as needed - follow up in [place]PD in 7-10 days Post-op pain 10/27/2012 12/26/2015 Overview: currently well controlled with [employer]. will start PO pain meds today 10/27. [...] by counting pads --should f/u with her [employer] provider after BMT Premature menopause 12/26/2015 Postmenopausal atrophic vaginitis 12/26/2015 Dyspareunia 12/26/2015 documented as of this encounter (statuses as of 2021) [facility] Narrative* Problem Noted Date Resolved Date Menorrhagia with regular cycle 03/15/2017 1 03/03/2017 Overview: Added automatically from request for surgery [id number] History of pulmonary embolism 04/25/2016 Neoplastic (malignant) [...] FOLLOW-UP 10/27/20122015 Overview: 32 yo female from [place] Family involved with care, at bedside. plan to discharge patient home - will arrange with case management for post op care as needed - follow up in [place]PD in 7-10 days Post-op pain 10/27/2012 12/26/2015 Overview: currently well controlled with [employer]. will start PO pain meds today 10/27. [...] by counting pads --should f/u with her [employer] provider after BMT Premature menopause 12/26/2015 Postmenopausal atrophic vaginitis 12/26/2015 Dyspareunia 12/26/2015 documented as of this encounter (statuses as of 2021) [facility] Narrative* Problem Noted Date Resolved Date Menorrhagia with regular cycle 03/15/2017 1 03/03/2017 Overview: Added automatically from request for surgery [id number] History of pulmonary embolism 04/25/2016 Neoplastic (malignant) [...] FOLLOW-UP 10/27/20122015 Overview: 32 yo female from [place] Family involved with care, at bedside. plan to discharge patient home - will arrange with case management for post op care as needed - follow up in [place]PD in 7-10 days Post-op pain 10/27/2012 12/26/2015 Overview: currently well controlled with [employer]. will start PO pain meds today 10/27. [...] by counting pads --should f/u with her [employer] provider after BMT Premature menopause 12/26/2015 Postmenopausal atrophic vaginitis 12/26/2015 Dyspareunia 12/26/2015 documented as of this encounter (statuses as of 07/26/2021) [facility] History of Past illness Narrative* Problem Noted Date Resolved Date Menorrhagia with regular cycle 03/15/2017 1 03/03/2017 Overview: Added automatically from request for surgery [id number] History of pulmonary embolism 04/25/2016 Neoplastic (malignant) [...] FOLLOW-UP 10/27/20122015 Overview: 32 yo female from [place], [place]. Family involved with care, at bedside. plan to discharge patient home - will arrange with case management for post op care as needed - follow up in OPD in 7-10 days Post-op pain 10/27/2012 12/26/2015 Overview: currently well controlled with [employer]. will start PO pain meds today 10/27. [...] by counting pads --should f/u with her [employer] provider after BMT Premature menopause 12/26/2015 Postmenopausal atrophic vaginitis 12/26/2015 Dyspareunia 12/26/2015 documented as of this encounter (statuses as of 07/28/2021) [facility] History of Past illness Narrative* Problem Noted Date Resolved Date Menorrhagia with regular cycle 03/15/2017 1 03/03/2017 Overview: Added automatically from request for surgery [id number] History of pulmonary embolism 04/25/2016 Neoplastic (malignant) [...] will need to follow up with Dr. Unegr after discharge Tachycardia 03/16/2013 12/26/2015 Overview: --patient taking atenolol 100mg BID at home, now BP running lower, decreased atenolol dose to 50mg BID with hypotension. --increase to 75mg BID, d/t tachycardia(HRs >110 while afebrile), HR now controlled, continue --monitor closely Electrolyte and fluid disorders not elsewhere cl assified 02/16/2013 12/26/2015 DISPOSITION AND FOLLOW-UP 10/27/20122015 Overview: 32 yo female from [place]. Family involved with care, at bedside. plan to discharge patient home - will arrange with case management for post op care as needed - follow up in OPD in 7-10 days Post-op pain 10/27/2012 12/26/2015 Overview: currently well controlled with [employer]. will start PO pain meds today 10/27. [...] by counting pads --should f/u with her [employer] provider after BMT Premature menopause 12/26/2015 Postmenopausal atrophic vaginitis 12/26/2015 Dyspareunia 12/26/2015 documented as of this encounter (statuses as of 07/31/2021) [facility] History of Past illness Narrative* Problem Noted Date Resolved Date Menorrhagia with regular cycle 03/15/2017 1 03/03/2017 Overview: Added automatically from request for surgery [id number] History of pulmonary embolism 04/25/2016 Neoplastic (malignant) [...] FOLLOW-UP 10/27/20122015 Overview: 32 yo female from [place]. Family involved with care, at bedside. plan to discharge patient home - will arrange with case management for post op care as needed - follow up in OPD in 7-10 days Post-op pain 10/27/2012 12/26/2015 Overview: currently well controlled with [employer]. will start PO pain meds today 10/27. [...] by counting pads --should f/u with her [employer] provider after BMT Premature menopause 12/26/2015 Postmenopausal atrophic vaginitis 12/26/2015 Dyspareunia 12/26/2015 documented as of this encounter (statuses as of 07/31/2021) [facility] History of Past illness Narrative* Problem Noted Date Resolved Date Menorrhagia with regular cycle 03/15/2017 1 03/03/2017 Overview: Added automatically from request for surgery [id number] History of pulmonary embolism 04/25/2016 Neoplastic (malignant) [...] FOLLOW-UP 10/27/20122015 Overview: 32 yo female from [place]. Family involved with care, at bedside. plan to discharge patient home - will arrange with case management for post op care as needed - follow up in OPD in 7-10 days Post-op pain 10/27/2012 12/26/2015 Overview: currently well controlled with [employer]. will start PO pain meds today 10/27. [...] by counting pads --should f/u with her [employer] provider after BMT Premature menopause 12/26/2015 Postmenopausal atrophic vaginitis 12/26/2015 Dyspareunia 12/26/2015 documented as of this encounter (statuses as of 08/03/2021) [facility] History of Past illness Narrative* Problem Noted Date Resolved Date Menorrhagia with regular cycle 03/15/2017 1 03/03/2017 Overview: Added automatically from request for surgery [id number] History of pulmonary embolism 04/25/2016 Neoplastic (malignant) [...] FOLLOW-UP 10/27/20122015 Overview: 32 yo female from [place]. Family involved with care, at bedside. plan to discharge patient home - will arrange with case management for post op care as needed - follow up in OPD in 7-10 days Post-op pain 10/27/2012 12/26/2015 Overview: currently well controlled with [employer]. will start PO pain meds today 10/27. [...] by counting pads --should f/u with her [employer] provider after BMT Premature menopause 12/26/2015 Postmenopausal atrophic vaginitis 12/26/2015 Dyspareunia 12/26/2015 documented as of this encounter (statuses as of 08/15/2021) [facility] History of Past illness Narrative* Problem Noted Date Resolved Date Menorrhagia with regular cycle 03/15/2017 1 03/03/2017 Overview: Added automatically from request for surgery [id number] History of pulmonary embolism 04/25/2016 Neoplastic (malignant) [...] FOLLOW-UP 10/27/20122015 Overview: 32 yo female from [place]. Family involved with care, at bedside. plan to discharge patient home - will arrange with case management for post op care as needed - follow up in OPD in 7-10 days Post-op pain 10/27/2012 12/26/2015 Overview: currently well controlled with [employer]. will start PO pain meds today 10/27. [...] by counting pads --should f/u with her [employer] provider after BMT Premature menopause 12/26/2015 Postmenopausal atrophic vaginitis 12/26/2015 Dyspareunia 12/26/2015 documented as of this encounter (statuses as of 08/16/2021) [facility] History of Past illness Narrative* Problem Noted Date Resolved Date Menorrhagia with regular cycle 03/15/2017 1 03/03/2017 Overview: Added automatically from request for surgery [id number] History of pulmonary embolism 04/25/2016 Neoplastic (malignant) [...] FOLLOW-UP 10/27/20122015 Overview: 32 yo female from [place]. Family involved with care, at bedside. plan to discharge patient home - will arrange with case management for post op care as needed - follow up in OPD in 7-10 days Post-op pain 10/27/2012 12/26/2015 Overview: currently well controlled with [employer]. will start PO pain meds today 10/27. [...] by counting pads --should f/u with her [employer] provider after BMT Premature menopause 12/26/2015 Postmenopausal atrophic vaginitis 12/26/2015 Dyspareunia 12/26/2015 documented as of this encounter (statuses as of 08/30/2021) [facility] History of Past illness Narrative* Problem Noted Date Resolved Date Menorrhagia with regular cycle 03/15/2017 1 03/03/2017 Overview: Added automatically from request for surgery [id number] History of pulmonary embolism 04/25/2016 Neoplastic (malignant) [...] FOLLOW-UP 10/27/20122015 Overview: 32 yo female from [place]. Family involved with care, at bedside. plan to discharge patient home - will arrange with case management for post op care as needed - follow up in OPD in 7-10 days Post-op pain 10/27/2012 12/26/2015 Overview: currently well controlled with [employer]. will start PO pain meds today 10/27. [...] by counting pads --should f/u with her [employer] provider after BMT Premature menopause 12/26/2015 Postmenopausal atrophic vaginitis 12/26/2015 Dyspareunia 12/26/2015 documented as of this encounter (statuses as of 09/04/2021) [facility] History of Past illness Narrative* Problem Noted Date Resolved Date Menorrhagia with regular cycle 03/15/2017 1 03/03/2017 Overview: Added automatically from request for surgery [id number] History of pulmonary embolism 04/25/2016 Neoplastic (malignant) [...] FOLLOW-UP 10/27/20122015 Overview: 32 yo female from [place]. Family involved with care, at bedside. plan to discharge patient home - will arrange with case management for post op care as needed - follow up in OPD in 7-10 days Post-op pain 10/27/2012 12/26/2015 Overview: currently well controlled with [employer]. will start PO pain meds today 10/27. [...] by counting pads --should f/u with her [employer] provider after BMT Premature menopause 12/26/2015 Postmenopausal atrophic vaginitis 12/26/2015 Dyspareunia 12/26/2015 documented as of this encounter (statuses as of 09/04/2021) [facility] History of Past illness Narrative* Problem Noted Date Resolved Date Menorrhagia with regular cycle 03/15/2017 1 03/03/2017 Overview: Added automatically from request for surgery [id number] History of pulmonary embolism 04/25/2016 Neoplastic (malignant) [...] FOLLOW-UP 10/27/20122015 Overview: 32 yo female from [place]. Family involved with care, at bedside. plan to discharge patient home - will arrange with case management for post op care as needed - follow up in OPD in 7-10 days Post-op pain 10/27/2012 12/26/2015 Overview: currently well controlled with [employer]. will start PO pain meds today 10/27. [...] by counting pads --should f/u with her [employer] provider after BMT Premature menopause 12/26/2015 Postmenopausal atrophic vaginitis 12/26/2015 Dyspareunia 12/26/2015 documented as of this encounter (statuses as of 09/05/2021) [facility] History of Past illness Narrative* Problem Noted Date Resolved Date Menorrhagia with regular cycle 03/15/2017 1 03/03/2017 Overview: Added automatically from request for surgery [id number] History of pulmonary embolism 04/25/2016 Neoplastic (malignant) [...] FOLLOW-UP 10/27/20122015 Overview: 32 yo female from [place]. Family involved with care, at bedside. plan to discharge patient home - will arrange with case management for post op care as needed - follow up in OPD in 7-10 days Post-op pain 10/27/2012 12/26/2015 Overview: currently well controlled with [employer]. will start PO pain meds today 10/27. [...] by counting pads --should f/u with her [employer] provider after BMT Premature menopause 12/26/2015 Postmenopausal atrophic vaginitis 12/26/2015 Dyspareunia 12/26/2015 documented as of this encounter (statuses as of 09/06/2021) [facility] History of Past illness Narrative* Problem Noted Date Resolved Date Menorrhagia with regular cycle 03/15/2017 1 03/03/2017 Overview: Added automatically from request for surgery [id number] History of pulmonary embolism 04/25/2016 Neoplastic (malignant) [...] FOLLOW-UP 10/27/20122015 Overview: 32 yo female from [place]. Family involved with care, at bedside. plan to discharge patient home - will arrange with case management for post op care as needed - follow up in OPD in 7-10 days Post-op pain 10/27/2012 12/26/2015 Overview: currently well controlled with [employer]. will start PO pain meds today 10/27. [...] by counting pads --should f/u with her [employer] provider after BMT Premature menopause 12/26/2015 Postmenopausal atrophic vaginitis 12/26/2015 Dyspareunia 12/26/2015 documented as of this encounter (statuses as of 09/11/2021) [facility] History of Past illness Narrative* Problem Noted Date Resolved Date Menorrhagia with regular cycle 03/15/2017 1 03/03/2017 Overview: Added automatically from request for surgery [id number] History of pulmonary embolism 04/25/2016 Neoplastic (malignant) [...] FOLLOW-UP 10/27/20122015 Overview: 32 yo female from [place]. Family involved with care, at bedside. plan to discharge patient home - will arrange with case management for post op care as needed - follow up in OPD in 7-10 days Post-op pain 10/27/2012 12/26/2015 Overview: currently well controlled with [employer]. will start PO pain meds today 10/27. [...] by counting pads --should f/u with her [employer] provider after BMT Premature menopause 12/26/2015 Postmenopausal atrophic vaginitis 12/26/2015 Dyspareunia 12/26/2015 documented as of this encounter (statuses as of 09/22/2021) [facility] of Past illness Narrative* Problem Noted Date Resolved Date Menorrhagia with regular cycle 03/15/2017 1 03/03/2017 Overview: Added automatically from request for surgery [id number] History of pulmonary embolism 04/25/2016 Neoplastic (malignant) [...] FOLLOW-UP 10/27/20122015 Overview: 32 yo female from [place]. Family involved with care, at bedside. plan to discharge patient home - will arrange with case management for post op care as needed - follow up in OPD in 7-10 days Post-op pain 10/27/2012 12/26/2015 Overview: currently well controlled with [employer]. will start PO pain meds today 10/27. [...] by counting pads --should f/u with her [employer] provider after BMT Premature menopause 12/26/2015 Postmenopausal atrophic vaginitis 12/26/2015 Dyspareunia 12/26/2015 documented as of this encounter (statuses as of 09/22/2021) [facility] of Past illness Narrative* Problem Noted Date Resolved Date Menorrhagia with regular cycle 03/15/2017 1 03/03/2017 Overview: Added automatically from request for surgery [id number] History of pulmonary embolism 04/25/2016 Neoplastic (malignant) [...] FOLLOW-UP 10/27/20122015 Overview: 32 yo female from [place]. Family involved with care, at bedside. plan to discharge patient home - will arrange with case management for post op care as needed - follow up in OPD in 7-10 days Post-op pain 10/27/2012 12/26/2015 Overview: currently well controlled with [employer]. will start PO pain meds today 10/27. [...] by counting pads --should f/u with her [employer] provider after BMT Premature menopause 12/26/2015 Postmenopausal atrophic vaginitis 12/26/2015 Dyspareunia 12/26/2015 documented as of this encounter (statuses as of 10/02/2021) [facility] History of Past illness Narrative* Problem Noted Date Resolved Date Menorrhagia with regular cycle 03/15/2017 1 03/03/2017 Overview: Added automatically from request for surgery [id number] History of pulmonary embolism 04/25/2016 Neoplastic (malignant) [...] FOLLOW-UP 10/27/20122015 Overview: 32 yo female from [place]. Family involved with care, at bedside. plan to discharge patient home - will arrange with case management for post op care as needed - follow up in OPD in 7-10 days Post-op pain 10/27/2012 12/26/2015 Overview: currently well controlled with [employer]. will start PO pain meds today 10/27. [...] by counting pads --should f/u with her [employer] provider after BMT Premature menopause 12/26/2015 Postmenopausal atrophic vaginitis 12/26/2015 Dyspareunia 12/26/2015 documented as of this encounter (statuses as of 10/05/2021) [facility] History of Past illness Narrative* Problem Noted Date Resolved Date Menorrhagia with regular cycle 03/15/2017 1 03/03/2017 Overview: Added automatically from request for surgery [id number] History of pulmonary embolism 04/25/2016 Neoplastic (malignant) [...] FOLLOW-UP 10/27/20122015 Overview: 32 yo female from [place]. Family involved with care, at bedside. plan to discharge patient home - will arrange with case management for post op care as needed - follow up in OPD in 7-10 days Post-op pain 10/27/2012 12/26/2015 Overview: currently well controlled with [employer]. will start PO pain meds today 10/27. [...] by counting pads --should f/u with her [employer] provider after BMT Premature menopause 12/26/2015 Postmenopausal atrophic vaginitis 12/26/2015 Dyspareunia 12/26/2015 documented as of this encounter (statuses as of 10/16/2021) [facility] of Past illness Narrative* Problem Noted Date Resolved Date Menorrhagia with regular cycle 03/15/2017 1 03/03/2017 Overview: Added automatically from request for surgery [id number] History of pulmonary embolism 04/25/2016 Neoplastic (malignant) [...] FOLLOW-UP 10/27/20122015 Overview: 32 yo female from [place]. Family involved with care, at bedside. plan to discharge patient home - will arrange with case management for post op care as needed - follow up in OPD in 7-10 days Post-op pain 10/27/2012 12/26/2015 Overview: currently well controlled with [employer]. will start PO pain meds today 10/27. [...] by counting pads --should f/u with her [employer] provider after BMT Premature menopause 12/26/2015 Postmenopausal atrophic vaginitis 12/26/2015 Dyspareunia 12/26/2015 documented as of this encounter (statuses as of 10/18/2021) [facility] of Past illness Narrative* Problem Noted Date Resolved Date Menorrhagia with regular cycle 03/15/2017 1 03/03/2017 Overview: Added automatically from request for surgery [id number] History of pulmonary embolism 04/25/2016 Neoplastic (malignant) [...] FOLLOW-UP 10/27/20122015 Overview: 32 yo female from [place]. Family involved with care, at bedside. plan to discharge patient home - will arrange with case management for post op care as needed - follow up in OPD in 7-10 days Post-op pain 10/27/2012 12/26/2015 Overview: currently well controlled with [employer]. will start PO pain meds today 10/27. [...] by counting pads --should f/u with her [employer] provider after BMT Premature menopause 12/26/2015 Postmenopausal atrophic vaginitis 12/26/2015 Dyspareunia 12/26/2015 documented as of this encounter (statuses as of 10/25/2021) [facility] of Past [facility] Narrative* Problem Noted Date Resolved Date Menorrhagia with regular cycle 03/15/2017 1 03/03/2017 Overview: Added automatically from request for surgery [id number] History of pulmonary embolism 04/25/2016 Neoplastic (malignant) [...] FOLLOW-UP 10/27/20122015 Overview: 32 yo female from [place]. Family involved with care, at bedside. plan to discharge patient home - will arrange with case management for post op care as needed - follow up in OPD in 7-10 days Post-op pain 10/27/2012 12/26/2015 Overview: currently well controlled with [employer]. will start PO pain meds today 10/27. [...] by counting pads --should f/u with her [employer] provider after BMT Premature menopause 12/26/2015 Postmenopausal atrophic vaginitis 12/26/2015 Dyspareunia 12/26/2015 documented as of this encounter (statuses as of 10/25/2021) [facility] Narrative* Problem Noted Date Resolved Date Menorrhagia with regular cycle 03/15/2017 1 03/03/2017 Overview: Added automatically from request for surgery [id number] History of pulmonary embolism 04/25/2016 Neoplastic (malignant) [...] FOLLOW-UP 10/27/20122015 Overview: 32 yo female from [place] Family involved with care, at bedside. plan to discharge patient home - will arrange with case management for post op care as needed - follow up in OPD in 7-10 days Post-op pain 10/27/2012 12/26/2015 Overview: currently well controlled with [employer]. will start PO pain meds today 10/27. [...] by counting pads --should f/u with her [employer] provider after BMT Premature menopause 12/26/2015 Postmenopausal atrophic vaginitis 12/26/2015 Dyspareunia 12/26/2015 documented as of this encounter (statuses as of 10/26/2021) [facility] Narrative* Problem Noted Date Resolved Date Menorrhagia with regular cycle 03/15/2017 1 03/03/2017 Overview: Added automatically from request for surgery [id number] History of pulmonary embolism 04/25/2016 Neoplastic (malignant) [...] FOLLOW-UP 10/27/20122015 Overview: 32 yo female from [place] Family involved with care, at bedside. plan to discharge patient home - will arrange with case management for post op care as needed - follow up in OPD in 7-10 days Post-op pain 10/27/2012 12/26/2015 Overview: currently well controlled with [employer]. will start PO pain meds today 10/27. [...] by counting pads --should f/u with her [employer] provider after BMT Premature menopause 12/26/2015 Postmenopausal atrophic vaginitis 12/26/2015 Dyspareunia 12/26/2015 documented as of this encounter (statuses as of 10/26/2021) [facility] Past [facility] Narrative* Problem Noted Date Resolved Date Menorrhagia with regular cycle 03/15/2017 1 03/03/2017 Overview: Added automatically from request for surgery [id number] History of pulmonary embolism 04/25/2016 Neoplastic (malignant) [...] FOLLOW-UP 10/27/20122015 Overview: 32 yo female from [place] Family involved with care, at bedside. plan to discharge patient home - will arrange with case management for post op care as needed - follow up in OPD in 7-10 days Post-op pain 10/27/2012 12/26/2015 Overview: currently well controlled with [employer]. will start PO pain meds today 10/27. [...] by counting pads --should f/u with her [employer] provider after BMT Premature menopause 12/26/2015 Postmenopausal atrophic vaginitis 12/26/2015 Dyspareunia 12/26/2015 documented as of this encounter (statuses as of 10/31/2021) [facility] Narrative* Problem Noted Date Resolved Date Menorrhagia with regular cycle 03/15/2017 1 03/03/2017 Overview: Added automatically from request for surgery [id number] History of pulmonary embolism 04/25/2016 Neoplastic (malignant) [...] FOLLOW-UP 10/27/20122015 Overview: 32 yo female from [place] Family involved with care, at bedside. plan to discharge patient home - will arrange with case management for post op care as needed - follow up in OPD in 7-10 days Post-op pain 10/27/2012 12/26/2015 Overview: currently well controlled with [employer]. will start PO pain meds today 10/27. [...] by counting pads --should f/u with her [employer] provider after BMT Premature menopause 12/26/2015 Postmenopausal atrophic vaginitis 12/26/2015 Dyspareunia 12/26/2015 documented as of this encounter (statuses as of 11/08/2021) [facility] Narrative* Problem Noted Date Resolved Date Menorrhagia with regular cycle 03/15/2017 1 03/03/2017 Overview: Added automatically from request for surgery [id number] History of pulmonary embolism 04/25/2016 Neoplastic (malignant) [...] FOLLOW-UP 10/27/20122015 Overview: 32 yo female from [place] Family involved with care, at bedside. plan to discharge patient home - will arrange with case management for post op care as needed - follow up in OPD in 7-10 days Post-op pain 10/27/2012 12/26/2015 Overview: currently well controlled with [employer]. will start PO pain meds today 10/27. [...] by counting pads --should f/u with her [employer] provider after BMT Premature menopause 12/26/2015 Postmenopausal atrophic vaginitis 12/26/2015 Dyspareunia 12/26/2015 documented as of this encounter (statuses as of 11/13/2021) [facility] Narrative* Problem Noted Date Resolved Date Menorrhagia with regular cycle 03/15/2017 1 03/03/2017 Overview: Added automatically from request for surgery [id number] History of pulmonary embolism 04/25/2016 Neoplastic (malignant) [...] FOLLOW-UP 10/27/20122015 Overview: 32 yo female from [place] Family involved with care, at bedside. plan to discharge patient home - will arrange with case management for post op care as needed - follow up in [place]PD in 7-10 days Post-op pain 10/27/2012 12/26/2015 Overview: currently well controlled with [employer]. will start PO pain meds today 10/27. [...] by counting pads --should f/u with her [employer] provider after BMT Premature menopause 12/26/2015 Postmenopausal atrophic vaginitis 12/26/2015 Dyspareunia 12/26/2015 documented as of this encounter (statuses as of 11/13/2021) [facility] Narrative* Problem Noted Date Resolved Date Menorrhagia with regular cycle 03/15/2017 1 03/03/2017 Overview: Added automatically from request for surgery [id number] History of pulmonary embolism 04/25/2016 Neoplastic (malignant) [...] FOLLOW-UP 10/27/20122015 Overview: 32 yo female from [place] Family involved with care, at bedside. plan to discharge patient home - will arrange with case management for post op care as needed - follow up in [place]PD in 7-10 days Post-op pain 10/27/2012 12/26/2015 Overview: currently well controlled with [employer]. will start PO pain meds today 10/27. [...] by counting pads --should f/u with her [employer] provider after BMT Premature menopause 12/26/2015 Postmenopausal atrophic vaginitis 12/26/2015 Dyspareunia 12/26/2015 documented as of this encounter (statuses as of 11/14/2021) [facility] History of Past illness Narrative* Problem Noted Date Resolved Date Menorrhagia with regular cycle 03/15/2017 1 03/03/2017 Overview: Added automatically from request for surgery [id number] History of pulmonary embolism 04/25/2016 Neoplastic (malignant) [...] FOLLOW-UP 10/27/20122015 Overview: 32 yo female from [place], [place]. Family involved with care, at bedside. plan to discharge patient home - will arrange with case management for post op care as needed - follow up in OPD in 7-10 days Post-op pain 10/27/2012 12/26/2015 Overview: currently well controlled with [employer]. will start PO pain meds today 10/27. [...] by counting pads --should f/u with her [employer] provider after BMT Premature menopause 12/26/2015 Postmenopausal atrophic vaginitis 12/26/2015 Dyspareunia 12/26/2015 documented as of this encounter (statuses as of 11/15/2021) [facility] History of Past illness Narrative* Problem Noted Date Resolved Date Menorrhagia with regular cycle 03/15/2017 1 03/03/2017 Overview: Added automatically from request for surgery [id number] History of pulmonary embolism 04/25/2016 Neoplastic (malignant) [...] FOLLOW-UP 10/27/20122015 Overview: 32 yo female from [place], [place]. Family involved with care, at bedside. plan to discharge patient home - will arrange with case management for post op care as needed - follow up in OPD in 7-10 days Post-op pain 10/27/2012 12/26/2015 Overview: currently well controlled with [employer]. will start PO pain meds today 10/27. [...] by counting pads --should f/u with her [employer] provider after BMT Premature menopause 12/26/2015 Postmenopausal atrophic vaginitis 12/26/2015 Dyspareunia 12/26/2015 documented as of this encounter (statuses as of 11/15/2021) [facility] History of Past illness Narrative* Problem Noted Date Resolved Date Menorrhagia with regular cycle 03/15/2017 1 03/03/2017 Overview: Added automatically from request for surgery [id number] History of pulmonary embolism 04/25/2016 Neoplastic (malignant) [...] FOLLOW-UP 10/27/20122015 Overview: 32 yo female from [place]. Family involved with care, at bedside. plan to discharge patient home - will arrange with case management for post op care as needed - follow up in OPD in 7-10 days Post-op pain 10/27/2012 12/26/2015 Overview: currently well controlled with [employer]. will start PO pain meds today 10/27. [...] by counting pads --should f/u with her [employer] provider after BMT Premature menopause 12/26/2015 Postmenopausal atrophic vaginitis 12/26/2015 Dyspareunia 12/26/2015 documented as of this encounter (statuses as of 12/04/2021) [facility] History of Past illness Narrative* Problem Noted Date Resolved Date Menorrhagia with regular cycle 03/15/2017 1 03/03/2017 Overview: Added automatically from request for surgery [id number] History of pulmonary embolism 04/25/2016 Neoplastic (malignant) [...] FOLLOW-UP 10/27/20122015 Overview: 32 yo female from [place]. Family involved with care, at bedside. plan to discharge patient home - will arrange with case management for post op care as needed - follow up in OPD in 7-10 days Post-op pain 10/27/2012 12/26/2015 Overview: currently well controlled with [employer]. will start PO pain meds today 10/27. [...] by counting pads --should f/u with her [employer] provider after BMT Premature menopause 12/26/2015 Postmenopausal atrophic vaginitis 12/26/2015 Dyspareunia 12/26/2015 documented as of this encounter (statuses as of 12/05/2021) [facility] History of Past illness Narrative* Problem Noted Date Resolved Date Menorrhagia with regular cycle 03/15/2017 1 03/03/2017 Overview: Added automatically from request for surgery [id number] History of pulmonary embolism 04/25/2016 Neoplastic (malignant) [...] FOLLOW-UP 10/27/20122015 Overview: 32 yo female from [place]. Family involved with care, at bedside. plan to discharge patient home - will arrange with case management for post op care as needed - follow up in OPD in 7-10 days Post-op pain 10/27/2012 12/26/2015 Overview: currently well controlled with [employer]. will start PO pain meds today 10/27. [...] by counting pads --should f/u with her [employer] provider after BMT Premature menopause 12/26/2015 Postmenopausal atrophic vaginitis 12/26/2015 Dyspareunia 12/26/2015 documented as of this encounter (statuses as of 12/06/2021) [facility] of Past illness Narrative* Problem Noted Date Resolved Date Menorrhagia with regular cycle 03/15/2017 1 03/03/2017 Overview: Added automatically from request for surgery [id number] History of pulmonary embolism 04/25/2016 Neoplastic (malignant) [...] FOLLOW-UP 10/27/20122015 Overview: 32 yo female from [place]. Family involved with care, at bedside. plan to discharge patient home - will arrange with case management for post op care as needed - follow up in OPD in 7-10 days Post-op pain 10/27/2012 12/26/2015 Overview: currently well controlled with [employer]. will start PO pain meds today 10/27. [...] by counting pads --should f/u with her [employer] provider after BMT Premature menopause 12/26/2015 Postmenopausal atrophic vaginitis 12/26/2015 Dyspareunia 12/26/2015 documented as of this encounter (statuses as of 12/07/2021) [facility] of Past illness Narrative* Problem Noted Date Resolved Date Menorrhagia with regular cycle 03/15/2017 1 03/03/2017 Overview: Added automatically from request for surgery [id number] History of pulmonary embolism 04/25/2016 Neoplastic (malignant) [...] FOLLOW-UP 10/27/20122015 Overview: 32 yo female from [place]. Family involved with care, at bedside. plan to discharge patient home - will arrange with case management for post op care as needed - follow up in OPD in 7-10 days Post-op pain 10/27/2012 12/26/2015 Overview: currently well controlled with [employer]. will start PO pain meds today 10/27. [...] by counting pads --should f/u with her [employer] provider after BMT Premature menopause 12/26/2015 Postmenopausal atrophic vaginitis 12/26/2015 Dyspareunia 12/26/2015 documented as of this encounter (statuses as of 12/12/2021) [facility] of Past illness Narrative* Problem Noted Date Resolved Date Menorrhagia with regular cycle 03/15/2017 1 03/03/2017 Overview: Added automatically from request for surgery [id number] History of pulmonary embolism 04/25/2016 Neoplastic (malignant) [...] FOLLOW-UP 10/27/20122015 Overview: 32 yo female from [place]. Family involved with care, at bedside. plan to discharge patient home - will arrange with case management for post op care as needed - follow up in OPD in 7-10 days Post-op pain 10/27/2012 12/26/2015 Overview: currently well controlled with [employer]. will start PO pain meds today 10/27. [...] by counting pads --should f/u with her [employer] provider after BMT Premature menopause 12/26/2015 Postmenopausal atrophic vaginitis 12/26/2015 Dyspareunia 12/26/2015 documented as of this encounter (statuses as of 12/18/2021) [facility] History of Past illness Narrative* Problem Noted Date Resolved Date Menorrhagia with regular cycle 03/15/2017 1 03/03/2017 Overview: Added automatically from request for surgery [id number] History of pulmonary embolism 04/25/2016 Neoplastic (malignant) [...] FOLLOW-UP 10/27/20122015 Overview: 32 yo female from [place]. Family involved with care, at bedside. plan to discharge patient home - will arrange with case management for post op care as needed - follow up in OPD in 7-10 days Post-op pain 10/27/2012 12/26/2015 Overview: currently well controlled with [employer]. will start PO pain meds today 10/27. [...] by counting pads --should f/u with her [employer] provider after BMT Premature menopause 12/26/2015 Postmenopausal atrophic vaginitis 12/26/2015 Dyspareunia 12/26/2015 documented as of this encounter (statuses as of 12/19/2021) [facility] of Past illness Narrative* Problem Noted Date Resolved Date Menorrhagia with regular cycle 03/15/2017 1 03/03/2017 Overview: Added automatically from request for surgery [id number] History of pulmonary embolism 04/25/2016 Neoplastic (malignant) [...] FOLLOW-UP 10/27/20122015 Overview: 32 yo female from [place]. Family involved with care, at bedside. plan to discharge patient home - will arrange with case management for post op care as needed - follow up in OPD in 7-10 days Post-op pain 10/27/2012 12/26/2015 Overview: currently well controlled with [employer]. will start PO pain meds today 10/27. [...] by counting pads --should f/u with her [employer] provider after BMT Premature menopause 12/26/2015 Postmenopausal atrophic vaginitis 12/26/2015 Dyspareunia 12/26/2015 documented as of this encounter (statuses as of 12/27/2021) [facility] of Past illness Narrative* Problem Noted Date Resolved Date Menorrhagia with regular cycle 03/15/2017 1 03/03/2017 Overview: Added automatically from request for surgery [id number] History of pulmonary embolism 04/25/2016 Neoplastic (malignant) [...] FOLLOW-UP 10/27/20122015 Overview: 32 yo female from [place]. Family involved with care, at bedside. plan to discharge patient home - will arrange with case management for post op care as needed - follow up in OPD in 7-10 days Post-op pain 10/27/2012 12/26/2015 Overview: currently well controlled with [employer]. will start PO pain meds today 10/27. [...] by counting pads --should f/u with her [employer] provider after BMT Premature menopause 12/26/2015 Postmenopausal atrophic vaginitis 12/26/2015 Dyspareunia 12/26/2015 documented as of this encounter (statuses as of 12/31/2021) [facility] of Past illness Narrative* Problem Noted Date Resolved Date Menorrhagia with regular cycle 03/15/2017 1 03/03/2017 Overview: Added automatically from request for surgery [id number] History of pulmonary embolism 04/25/2016 Neoplastic (malignant) [...] FOLLOW-UP 10/27/20122015 Overview: 32 yo female from [place]. Family involved with care, at bedside. plan to discharge patient home - will arrange with case management for post op care as needed - follow up in OPD in 7-10 days Post-op pain 10/27/2012 12/26/2015 Overview: currently well controlled with [employer]. will start PO pain meds today 10/27. [...] by counting pads --should f/u with her [employer] provider after BMT Premature menopause 12/26/2015 Postmenopausal atrophic vaginitis 12/26/2015 Dyspareunia 12/26/2015 documented as of this encounter (statuses as of 01/08/2022) [facility] of Past illness Narrative* Problem Noted Date Resolved Date Menorrhagia with regular cycle 03/15/2017 1 03/03/2017 Overview: Added automatically from request for surgery [id number] History of pulmonary embolism 04/25/2016 Neoplastic (malignant) [...] FOLLOW-UP 10/27/20122015 Overview: 32 yo female from [place]. Family involved with care, at bedside. plan to discharge patient home - will arrange with case management for post op care as needed - follow up in OPD in 7-10 days Post-op pain 10/27/2012 12/26/2015 Overview: currently well controlled with [employer]. will start PO pain meds today 10/27. [...] by counting pads --should f/u with her [employer] provider after BMT Premature menopause 12/26/2015 Postmenopausal atrophic vaginitis 12/26/2015 Dyspareunia 12/26/2015 documented as of this encounter (statuses as of 01/16/2022) [facility] of Past illness Narrative* Problem Noted Date Resolved Date Menorrhagia with regular cycle 03/15/2017 1 03/03/2017 Overview: Added automatically from request for surgery [id number] History of pulmonary embolism 04/25/2016 Neoplastic (malignant) [...] FOLLOW-UP 10/27/20122015 Overview: 32 yo female from [place]. Family involved with care, at bedside. plan to discharge patient home - will arrange with case management for post op care as needed - follow up in OPD in 7-10 days Post-op pain 10/27/2012 12/26/2015 Overview: currently well controlled with [employer]. will start PO pain meds today 10/27. [...] by counting pads --should f/u with her [employer] provider after BMT Premature menopause 12/26/2015 Postmenopausal atrophic vaginitis 12/26/2015 Dyspareunia 12/26/2015 documented as of this encounter (statuses as of 01/16/2022) [facility] of Past illness Narrative* Problem Noted Date Resolved Date Menorrhagia with regular cycle 03/15/2017 1 03/03/2017 Overview: Added automatically from request for surgery [id number] History of pulmonary embolism 04/25/2016 Neoplastic (malignant) [...] FOLLOW-UP 10/27/20122015 Overview: 32 yo female from [place]. Family involved with care, at bedside. plan to discharge patient home - will arrange with case management for post op care as needed - follow up in OPD in 7-10 days Post-op pain 10/27/2012 12/26/2015 Overview: currently well controlled with [employer]. will start PO pain meds today 10/27. [...] by counting pads --should f/u with her [employer] provider after BMT Premature menopause 12/26/2015 Postmenopausal atrophic vaginitis 12/26/2015 Dyspareunia 12/26/2015 documented as of this encounter (statuses as of 01/17/2022) [facility] of Past [facility] Narrative* Problem Noted Date Resolved Date Menorrhagia with regular cycle 03/15/2017 1 03/03/2017 Overview: Added automatically from request for surgery [id number] History of pulmonary embolism 04/25/2016 Neoplastic (malignant) [...] FOLLOW-UP 10/27/20122015 Overview: 32 yo female from [place]. Family involved with care, at bedside. plan to discharge patient home - will arrange with case management for post op care as needed - follow up in OPD in 7-10 days Post-op pain 10/27/2012 12/26/2015 Overview: currently well controlled with [employer]. will start PO pain meds today 10/27. [...] by counting pads --should f/u with her [employer] provider after BMT Premature menopause 12/26/2015 Postmenopausal atrophic vaginitis 12/26/2015 Dyspareunia 12/26/2015 documented as of this encounter (statuses as of 01/18/2022) [facility] of Past [facility] Narrative* Problem Noted Date Resolved Date Menorrhagia with regular cycle 03/15/2017 1 03/03/2017 Overview: Added automatically from request for surgery [id number] History of pulmonary embolism 04/25/2016 Neoplastic (malignant) [...] FOLLOW-UP 10/27/20122015 Overview: 32 yo female from [place]. Family involved with care, at bedside. plan to discharge patient home - will arrange with case management for post op care as needed - follow up in OPD in 7-10 days Post-op pain 10/27/2012 12/26/2015 Overview: currently well controlled with [employer]. will start PO pain meds today 10/27. [...] by counting pads --should f/u with her [employer] provider after BMT Premature menopause 12/26/2015 Postmenopausal atrophic vaginitis 12/26/2015 Dyspareunia 12/26/2015 documented as of this encounter (statuses as of 01/20/2022) [facility] of Past [facility] Narrative* Problem Noted Date Resolved Date Menorrhagia with regular cycle 03/15/2017 1 03/03/2017 Overview: Added automatically from request for surgery [id number] History of pulmonary embolism 04/25/2016 Neoplastic (malignant) [...] FOLLOW-UP 10/27/20122015 Overview: 32 yo female from [place]. Family involved with care, at bedside. plan to discharge patient home - will arrange with case management for post op care as needed - follow up in OPD in 7-10 days Post-op pain 10/27/2012 12/26/2015 Overview: currently well controlled with [employer]. will start PO pain meds today 10/27. [...] by counting pads --should f/u with her [employer] provider after BMT Premature menopause 12/26/2015 Postmenopausal atrophic vaginitis 12/26/2015 Dyspareunia 12/26/2015 documented as of this encounter (statuses as of 01/22/2022) [facility] Past [facility] Narrative* Problem Noted Date Resolved Date Menorrhagia with regular cycle 03/15/2017 1 03/03/2017 Overview: Added automatically from request for surgery [id number] History of pulmonary embolism 04/25/2016 Neoplastic (malignant) [...] FOLLOW-UP 10/27/20122015 Overview: 32 yo female from [place]. Family involved with care, at bedside. plan to discharge patient home - will arrange with case management for post op care as needed - follow up in OPD in 7-10 days Post-op pain 10/27/2012 12/26/2015 Overview: currently well controlled with [employer]. will start PO pain meds today 10/27. [...] by counting pads --should f/u with her [employer] provider after BMT Premature menopause 12/26/2015 Postmenopausal atrophic vaginitis 12/26/2015 Dyspareunia 12/26/2015 documented as of this encounter (statuses as of 01/25/2022) [facility] Narrative* Problem Noted Date Resolved Date Menorrhagia with regular cycle 03/15/2017 1 03/03/2017 Overview: Added automatically from request for surgery [id number] History of pulmonary embolism 04/25/2016 Neoplastic (malignant) [...] FOLLOW-UP 10/27/20122015 Overview: 32 yo female from [place]. Family involved with care, at bedside. plan to discharge patient home - will arrange with case management for post op care as needed - follow up in OPD in 7-10 days Post-op pain 10/27/2012 12/26/2015 Overview: currently well controlled with [employer]. will start PO pain meds today 10/27. [...] by counting pads --should f/u with her [employer] provider after BMT Premature menopause 12/26/2015 Postmenopausal atrophic vaginitis 12/26/2015 Dyspareunia 12/26/2015 documented as of this encounter (statuses as of 02/11/2022) [facility] Narrative* Problem Noted Date Resolved Date Menorrhagia with regular cycle 03/15/2017 1 03/03/2017 Overview: Added automatically from request for surgery [id number] History of pulmonary embolism 04/25/2016 Neoplastic (malignant) [...] FOLLOW-UP 10/27/20122015 Overview: 32 yo female from [place] Family involved with care, at bedside. plan to discharge patient home - will arrange with case management for post op care as needed - follow up in OPD in 7-10 days Post-op pain 10/27/2012 12/26/2015 Overview: currently well controlled with [employer]. will start PO pain meds today 10/27. [...] by counting pads --should f/u with her [employer] provider after BMT Premature menopause 12/26/2015 Postmenopausal atrophic vaginitis 12/26/2015 Dyspareunia 12/26/2015 documented as of this encounter (statuses as of 02/21/2022) [facility] Narrative* Problem Noted Date Resolved Date Menorrhagia with regular cycle 03/15/2017 1 03/03/2017 Overview: Added automatically from request for surgery [id number] History of pulmonary embolism 04/25/2016 Neoplastic (malignant) [...] FOLLOW-UP 10/27/20122015 Overview: 32 yo female from [place]. Family involved with care, at bedside. plan to discharge patient home - will arrange with case management for post op care as needed - follow up in OPD in 7-10 days Post-op pain 10/27/2012 12/26/2015 Overview: currently well controlled with [employer]. will start PO pain meds today 10/27. [...] by counting pads --should f/u with her [employer] provider after BMT Premature menopause 12/26/2015 Postmenopausal atrophic vaginitis 12/26/2015 Dyspareunia 12/26/2015 documented as of this encounter (statuses as of 03/06/2022) [facility] Narrative* Problem Noted Date Resolved Date Menorrhagia with regular cycle 03/15/2017 1 03/03/2017 Overview: Added automatically from request for surgery [id number] History of pulmonary embolism 04/25/2016 Neoplastic (malignant) [...] FOLLOW-UP 10/27/20122015 Overview: 32 yo female from [place] Family involved with care, at bedside. plan to discharge patient home - will arrange with case management for post op care as needed - follow up in OPD in 7-10 days Post-op pain 10/27/2012 12/26/2015 Overview: currently well controlled with [employer]. will start PO pain meds today 10/27. [...] by counting pads --should f/u with her [employer] provider after BMT Premature menopause 12/26/2015 Postmenopausal atrophic vaginitis 12/26/2015 Dyspareunia 12/26/2015 documented as of this encounter (statuses as of 03/07/2022) [facility] Narrative* Problem Noted Date Resolved Date Menorrhagia with regular cycle 03/15/2017 1 03/03/2017 Overview: Added automatically from request for surgery [id number] History of pulmonary embolism 04/25/2016 Neoplastic (malignant) [...] FOLLOW-UP 10/27/20122015 Overview: 32 yo female from [place] Family involved with care, at bedside. plan to discharge patient home - will arrange with case management for post op care as needed - follow up in OPD in 7-10 days Post-op pain 10/27/2012 12/26/2015 Overview: currently well controlled with [employer]. will start PO pain meds today 10/27. [...] by counting pads --should f/u with her [employer] provider after BMT Premature menopause 12/26/2015 Postmenopausal atrophic vaginitis 12/26/2015 Dyspareunia 12/26/2015 documented as of this encounter (statuses as of 03/07/2022) [facility] Narrative* Problem Noted Date Resolved Date Menorrhagia with regular cycle 03/15/2017 1 03/03/2017 Overview: Added automatically from request for surgery [id number] History of pulmonary embolism 04/25/2016 Neoplastic (malignant) [...] FOLLOW-UP 10/27/20122015 Overview: 32 yo female from [place] Family involved with care, at bedside. plan to discharge patient home - will arrange with case management for post op care as needed - follow up in OPD in 7-10 days Post-op pain 10/27/2012 12/26/2015 Overview: currently well controlled with [employer]. will start PO pain meds today 10/27. [...] by counting pads --should f/u with her [employer] provider after BMT Premature menopause 12/26/2015 Postmenopausal atrophic vaginitis 12/26/2015 Dyspareunia 12/26/2015 documented as of this encounter (statuses as of 03/15/2022) [facility] Narrative* Problem Noted Date Resolved Date Menorrhagia with regular cycle 03/15/2017 1 03/03/2017 Overview: Added automatically from request for surgery [id number] History of pulmonary embolism 04/25/2016 Neoplastic (malignant) [...] FOLLOW-UP 10/27/20122015 Overview: 32 yo female from [place] Family involved with care, at bedside. plan to discharge patient home - will arrange with case management for post op care as needed - follow up in [place]PD in 7-10 days Post-op pain 10/27/2012 12/26/2015 Overview: currently well controlled with [employer]. will start PO pain meds today 10/27. [...] by counting pads --should f/u with her [employer] provider after BMT Premature menopause 12/26/2015 Postmenopausal atrophic vaginitis 12/26/2015 Dyspareunia 12/26/2015 documented as of this encounter (statuses as of 03/15/2022) [facility] Narrative* Problem Noted Date Resolved Date Menorrhagia with regular cycle 03/15/2017 1 03/03/2017 Overview: Added automatically from request for surgery [id number] History of pulmonary embolism 04/25/2016 Neoplastic (malignant) [...] FOLLOW-UP 10/27/20122015 Overview: 32 yo female from [place] Family involved with care, at bedside. plan to discharge patient home - will arrange with case management for post op care as needed - follow up in [place]PD in 7-10 days Post-op pain 10/27/2012 12/26/2015 Overview: currently well controlled with [employer]. will start PO pain meds today 10/27. [...] by counting pads --should f/u with her [employer] provider after BMT Premature menopause 12/26/2015 Postmenopausal atrophic vaginitis 12/26/2015 Dyspareunia 12/26/2015 documented as of this encounter (statuses as of 03/19/2022) [facility]arr[facility]* Problem Noted Date Resolved Date Menorrhagia with regular cycle 03/15/2017 1 03/03/2017 Overview: Added automatically from request for surgery [id number] History of pulmonary embolism 04/25/2016 Neoplastic (malignant) [...] FOLLOW-UP 10/27/20122015 Overview: 32 yo female from [place], [place]. Family involved with care, at bedside. plan to discharge patient home - will arrange with case management for post op care as needed - follow up in OPD in 7-10 days Post-op pain 10/27/2012 12/26/2015 Overview: currently well controlled with [employer]. will start PO pain meds today 10/27. [...] by counting pads --should f/u with her [employer] provider after BMT Premature menopause 12/26/2015 Postmenopausal atrophic vaginitis 12/26/2015 Dyspareunia 12/26/2015 documented as of this encounter (statuses as of 03/22/2022) [facility] History of Past illness Narrative* Problem Noted Date Resolved Date Menorrhagia with regular cycle 03/15/2017 1 03/03/2017 Overview: Added automatically from request for surgery [id number] History of pulmonary embolism 04/25/2016 Neoplastic (malignant) [...] FOLLOW-UP 10/27/20122015 Overview: 32 yo female from [place], [place]. Family involved with care, at bedside. plan to discharge patient home - will arrange with case management for post op care as needed - follow up in OPD in 7-10 days Post-op pain 10/27/2012 12/26/2015 Overview: currently well controlled with [employer]. will start PO pain meds today 10/27. [...] by counting pads --should f/u with her [employer] provider after BMT Premature menopause 12/26/2015 Postmenopausal atrophic vaginitis 12/26/2015 Dyspareunia 12/26/2015 documented as of this encounter (statuses as of 03/23/2022) [facility] History of Past illness Narrative* Problem Noted Date Resolved Date Menorrhagia with regular cycle 03/15/2017 1 03/03/2017 Overview: Added automatically from request for surgery [id number] History of pulmonary embolism 04/25/2016 Neoplastic (malignant) [...] FOLLOW-UP 10/27/20122015 Overview: 32 yo female from [place]. Family involved with care, at bedside. plan to discharge patient home - will arrange with case management for post op care as needed - follow up in OPD in 7-10 days Post-op pain 10/27/2012 12/26/2015 Overview: currently well controlled with [employer]. will start PO pain meds today 10/27. [...] by counting pads --should f/u with her [employer] provider after BMT Premature menopause 12/26/2015 Postmenopausal atrophic vaginitis 12/26/2015 Dyspareunia 12/26/2015 documented as of this encounter (statuses as of 03/24/2022) [facility] History of Past illness Narrative* Problem Noted Date Resolved Date Menorrhagia with regular cycle 03/15/2017 1 03/03/2017 Overview: Added automatically from request for surgery [id number] History of pulmonary embolism 04/25/2016 Neoplastic (malignant) [...] FOLLOW-UP 10/27/20122015 Overview: 32 yo female from [place]. Family involved with care, at bedside. plan to discharge patient home - will arrange with case management for post op care as needed - follow up in OPD in 7-10 days Post-op pain 10/27/2012 12/26/2015 Overview: currently well controlled with [employer]. will start PO pain meds today 10/27. [...] by counting pads --should f/u with her [employer] provider after BMT Premature menopause 12/26/2015 Postmenopausal atrophic vaginitis 12/26/2015 Dyspareunia 12/26/2015 documented as of this encounter (statuses as of 03/26/2022) [facility] of Past illness Narrative* Problem Noted Date Resolved Date Menorrhagia with regular cycle 03/15/2017 1 03/03/2017 Overview: Added automatically from request for surgery [id number] History of pulmonary embolism 04/25/2016 Neoplastic (malignant) [...] FOLLOW-UP 10/27/20122015 Overview: 32 yo female from [place]. Family involved with care, at bedside. plan to discharge patient home - will arrange with case management for post op care as needed - follow up in OPD in 7-10 days Post-op pain 10/27/2012 12/26/2015 Overview: currently well controlled with [employer]. will start PO pain meds today 10/27. [...] by counting pads --should f/u with her [employer] provider after BMT Premature menopause 12/26/2015 Postmenopausal atrophic vaginitis 12/26/2015 Dyspareunia 12/26/2015 documented as of this encounter (statuses as of 03/30/2022) [facility] of Past illness Narrative* Problem Noted Date Resolved Date Menorrhagia with regular cycle 03/15/2017 1 03/03/2017 Overview: Added automatically from request for surgery [id number] History of pulmonary embolism 04/25/2016 Neoplastic (malignant) [...] FOLLOW-UP 10/27/20122015 Overview: 32 yo female from [place]. Family involved with care, at bedside. plan to discharge patient home - will arrange with case management for post op care as needed - follow up in OPD in 7-10 days Post-op pain 10/27/2012 12/26/2015 Overview: currently well controlled with [employer]. will start PO pain meds today 10/27. [...] by counting pads --should f/u with her [employer] provider after BMT Premature menopause 12/26/2015 Postmenopausal atrophic vaginitis 12/26/2015 Dyspareunia 12/26/2015 documented as of this encounter (statuses as of 04/01/2022) [facility] of Past illness Narrative* Problem Noted Date Resolved Date Menorrhagia with regular cycle 03/15/2017 1 03/03/2017 Overview: Added automatically from request for surgery [id number] History of pulmonary embolism 04/25/2016 Neoplastic (malignant) [...] FOLLOW-UP 10/27/20122015 Overview: 32 yo female from [place]. Family involved with care, at bedside. plan to discharge patient home - will arrange with case management for post op care as needed - follow up in OPD in 7-10 days Post-op pain 10/27/2012 12/26/2015 Overview: currently well controlled with [employer]. will start PO pain meds today 10/27. [...] by counting pads --should f/u with her [employer] provider after BMT Premature menopause 12/26/2015 Postmenopausal atrophic vaginitis 12/26/2015 Dyspareunia 12/26/2015 documented as of this encounter (statuses as of 04/10/2022) [facility] of Past illness Narrative* Problem Noted Date Resolved Date Menorrhagia with regular cycle 03/15/2017 1 03/03/2017 Overview: Added automatically from request for surgery [id number] History of pulmonary embolism 04/25/2016 Neoplastic (malignant) [...] FOLLOW-UP 10/27/20122015 Overview: 32 yo female from [place]. Family involved with care, at bedside. plan to discharge patient home - will arrange with case management for post op care as needed - follow up in OPD in 7-10 days Post-op pain 10/27/2012 12/26/2015 Overview: currently well controlled with [employer]. will start PO pain meds today 10/27. [...] by counting pads --should f/u with her [employer] provider after BMT Premature menopause 12/26/2015 Postmenopausal atrophic vaginitis 12/26/2015 Dyspareunia 12/26/2015 documented as of this encounter (statuses as of 04/16/2022) [facility] of Past illness Narrative* Problem Noted Date Resolved Date Menorrhagia with regular cycle 03/15/2017 1 03/03/2017 Overview: Added automatically from request for surgery [id number] History of pulmonary embolism 04/25/2016 Neoplastic (malignant) [...] FOLLOW-UP 10/27/20122015 Overview: 32 yo female from [place]. Family involved with care, at bedside. plan to discharge patient home - will arrange with case management for post op care as needed - follow up in OPD in 7-10 days Post-op pain 10/27/2012 12/26/2015 Overview: currently well controlled with [employer]. will start PO pain meds today 10/27. [...] by counting pads --should f/u with her [employer] provider after BMT Premature menopause 12/26/2015 Postmenopausal atrophic vaginitis 12/26/2015 Dyspareunia 12/26/2015 documented as of this encounter (statuses as of 04/17/2022) [facility] of Past [facility] Narrative* Problem Noted Date Resolved Date Menorrhagia with regular cycle 03/15/2017 1 03/03/2017 Overview: Added automatically from request for surgery [id number] History of pulmonary embolism 04/25/2016 Neoplastic (malignant) [...] FOLLOW-UP 10/27/20122015 Overview: 32 yo female from [place]. Family involved with care, at bedside. plan to discharge patient home - will arrange with case management for post op care as needed - follow up in OPD in 7-10 days Post-op pain 10/27/2012 12/26/2015 Overview: currently well controlled with [employer]. will start PO pain meds today 10/27. [...] by counting pads --should f/u with her [employer] provider after BMT Premature menopause 12/26/2015 Postmenopausal atrophic vaginitis 12/26/2015 Dyspareunia 12/26/2015 documented as of this encounter (statuses as of 04/20/2022) [facility] of Past [facility] Narrative* Problem Noted Date Resolved Date Menorrhagia with regular cycle 03/15/2017 1 03/03/2017 Overview: Added automatically from request for surgery [id number] History of pulmonary embolism 04/25/2016 Neoplastic (malignant) [...] FOLLOW-UP 10/27/20122015 Overview: 32 yo female from [place]. Family involved with care, at bedside. plan to discharge patient home - will arrange with case management for post op care as needed - follow up in OPD in 7-10 days Post-op pain 10/27/2012 12/26/2015 Overview: currently well controlled with [employer]. will start PO pain meds today 10/27. [...] by counting pads --should f/u with her [employer] provider after BMT Premature menopause 12/26/2015 Postmenopausal atrophic vaginitis 12/26/2015 Dyspareunia 12/26/2015 documented as of this encounter (statuses as of 04/23/2022) [facility] Narrative* Problem Noted Date Resolved Date Menorrhagia with regular cycle 03/15/2017 1 03/03/2017 Overview: Added automatically from request for surgery [id number] History of pulmonary embolism 04/25/2016 Neoplastic (malignant) [...] FOLLOW-UP 10/27/20122015 Overview: 32 yo female from [place]. Family involved with care, at bedside. plan to discharge patient home - will arrange with case management for post op care as needed - follow up in OPD in 7-10 days Post-op pain 10/27/2012 12/26/2015 Overview: currently well controlled with [employer]. will start PO pain meds today 10/27. [...] by counting pads --should f/u with her [employer] provider after BMT Premature menopause 12/26/2015 Postmenopausal atrophic vaginitis 12/26/2015 Dyspareunia 12/26/2015 documented as of this encounter (statuses as of 04/23/2022) [facility] Past [facility] Narrative* Problem Noted Date Resolved Date Menorrhagia with regular cycle 03/15/2017 1 03/03/2017 Overview: Added automatically from request for surgery [id number] History of pulmonary embolism 04/25/2016 Neoplastic (malignant) [...] FOLLOW-UP 10/27/20122015 Overview: 32 yo female from [place]. Family involved with care, at bedside. plan to discharge patient home - will arrange with case management for post op care as needed - follow up in OPD in 7-10 days Post-op pain 10/27/2012 12/26/2015 Overview: currently well controlled with [employer]. will start PO pain meds today 10/27. [...] by counting pads --should f/u with her [employer] provider after BMT Premature menopause 12/26/2015 Postmenopausal atrophic vaginitis 12/26/2015 Dyspareunia 12/26/2015 documented as of this encounter (statuses as of 04/25/2022) [facility] of Past [facility] Narrative* Problem Noted Date Resolved Date Menorrhagia with regular cycle 03/15/2017 1 03/03/2017 Overview: Added automatically from request for surgery [id number] History of pulmonary embolism 04/25/2016 Neoplastic (malignant) [...] FOLLOW-UP 10/27/20122015 Overview: 32 yo female from [place]. Family involved with care, at bedside. plan to discharge patient home - will arrange with case management for post op care as needed - follow up in OPD in 7-10 days Post-op pain 10/27/2012 12/26/2015 Overview: currently well controlled with [employer]. will start PO pain meds today 10/27. [...] by counting pads --should f/u with her [employer] provider after BMT Premature menopause 12/26/2015 Postmenopausal atrophic vaginitis 12/26/2015 Dyspareunia 12/26/2015 documented as of this encounter (statuses as of 05/01/2022) [facility] of Past [facility] Narrative* Problem Noted Date Resolved Date Menorrhagia with regular cycle 03/15/2017 1 03/03/2017 Overview: Added automatically from request for surgery [id number] History of pulmonary embolism 04/25/2016 Neoplastic (malignant) [...] FOLLOW-UP 10/27/20122015 Overview: 32 yo female from [place]. Family involved with care, at bedside. plan to discharge patient home - will arrange with case management for post op care as needed - follow up in OPD in 7-10 days Post-op pain 10/27/2012 12/26/2015 Overview: currently well controlled with [employer]. will start PO pain meds today 10/27. [...] by counting pads --should f/u with her [employer] provider after BMT Premature menopause 12/26/2015 Postmenopausal atrophic vaginitis 12/26/2015 Dyspareunia 12/26/2015 documented as of this encounter (statuses as of 05/15/2022) [facility] Past [facility] Narrative* Problem Noted Date Resolved Date Menorrhagia with regular cycle 03/15/2017 1 03/03/2017 Overview: Added automatically from request for surgery [id number] History of pulmonary embolism 04/25/2016 Neoplastic (malignant) [...] FOLLOW-UP 10/27/20122015 Overview: 32 yo female from [place]. Family involved with care, at bedside. plan to discharge patient home - will arrange with case management for post op care as needed - follow up in OPD in 7-10 days Post-op pain 10/27/2012 12/26/2015 Overview: currently well controlled with [employer]. will start PO pain meds today 10/27. [...] by counting pads --should f/u with her [employer] provider after BMT Premature menopause 12/26/2015 Postmenopausal atrophic vaginitis 12/26/2015 Dyspareunia 12/26/2015 documented as of this encounter (statuses as of 05/21/2022) [facility] Past [facility] Narrative* Problem Noted Date Resolved Date Menorrhagia with regular cycle 03/15/2017 1 03/03/2017 Overview: Added automatically from request for surgery [id number] History of pulmonary embolism 04/25/2016 Neoplastic (malignant) [...] FOLLOW-UP 10/27/20122015 Overview: 32 yo female from [place]. Family involved with care, at bedside. plan to discharge patient home - will arrange with case management for post op care as needed - follow up in OPD in 7-10 days Post-op pain 10/27/2012 12/26/2015 Overview: currently well controlled with [employer]. will start PO pain meds today 10/27. [...] by counting pads --should f/u with her [employer] provider after BMT Premature menopause 12/26/2015 Postmenopausal atrophic vaginitis 12/26/2015 Dyspareunia 12/26/2015 documented as of this encounter (statuses as of 05/21/2022) [facility] Past [facility] Narrative* Problem Noted Date Resolved Date Menorrhagia with regular cycle 03/15/2017 1 03/03/2017 Overview: Added automatically from request for surgery [id number] History of pulmonary embolism 04/25/2016 Neoplastic (malignant) [...] FOLLOW-UP 10/27/20122015 Overview: 32 yo female from [place]. Family involved with care, at bedside. plan to discharge patient home - will arrange with case management for post op care as needed - follow up in OPD in 7-10 days Post-op pain 10/27/2012 12/26/2015 Overview: currently well controlled with [employer]. will start PO pain meds today 10/27. [...] by counting pads --should f/u with her [employer] provider after BMT Premature menopause 12/26/2015 Postmenopausal atrophic vaginitis 12/26/2015 Dyspareunia 12/26/2015 documented as of this encounter (statuses as of 06/11/2022) [facility] Past [facility] Narrative* Problem Noted Date Resolved Date Menorrhagia with regular cycle 03/15/2017 1 03/03/2017 Overview: Added automatically from request for surgery [id number] History of pulmonary embolism 04/25/2016 Neoplastic (malignant) [...] FOLLOW-UP 10/27/20122015 Overview: 32 yo female from [place]. Family involved with care, at bedside. plan to discharge patient home - will arrange with case management for post op care as needed - follow up in OPD in 7-10 days Post-op pain 10/27/2012 12/26/2015 Overview: currently well controlled with [employer]. will start PO pain meds today 10/27. [...] by counting pads --should f/u with her [employer] provider after BMT Premature menopause 12/26/2015 Postmenopausal atrophic vaginitis 12/26/2015 Dyspareunia 12/26/2015 documented as of this encounter (statuses as of 06/12/2022) [facility] Past [facility] Narrative* Problem Noted Date Resolved Date Menorrhagia with regular cycle 03/15/2017 1 03/03/2017 Overview: Added automatically from request for surgery [id number] History of pulmonary embolism 04/25/2016 Neoplastic (malignant) [...] FOLLOW-UP 10/27/20122015 Overview: 32 yo female from [place]. Family involved with care, at bedside. plan to discharge patient home - will arrange with case management for post op care as needed - follow up in OPD in 7-10 days Post-op pain 10/27/2012 12/26/2015 Overview: currently well controlled with [employer]. will start PO pain meds today 10/27. [...] by counting pads --should f/u with her [employer] provider after BMT Premature menopause 12/26/2015 Postmenopausal atrophic vaginitis 12/26/2015 Dyspareunia 12/26/2015 documented as of this encounter (statuses as of 06/12/2022) [facility] Narrative* Problem Noted Date Resolved Date Menorrhagia with regular cycle 03/15/2017 1 03/03/2017 Overview: Added automatically from request for surgery [id number] History of pulmonary embolism 04/25/2016 Neoplastic (malignant) [...] FOLLOW-UP 10/27/20122015 Overview: 32 yo female from [place]. Family involved with care, at bedside. plan to discharge patient home - will arrange with case management for post op care as needed - follow up in OPD in 7-10 days Post-op pain 10/27/2012 12/26/2015 Overview: currently well controlled with [employer]. will start PO pain meds today 10/27. [...] by counting pads --should f/u with her [employer] provider after BMT Premature menopause 12/26/2015 Postmenopausal atrophic vaginitis 12/26/2015 Dyspareunia 12/26/2015 documented as of this encounter (statuses as of 06/12/2022) [facility] Narrative* Problem Noted Date Resolved Date Menorrhagia with regular cycle 03/15/2017 1 03/03/2017 Overview: Added automatically from request for surgery [id number] History of pulmonary embolism 04/25/2016 Neoplastic (malignant) [...] FOLLOW-UP 10/27/20122015 Overview: 32 yo female from [place]. Family involved with care, at bedside. plan to discharge patient home - will arrange with case management for post op care as needed - follow up in OPD in 7-10 days Post-op pain 10/27/2012 12/26/2015 Overview: currently well controlled with [employer]. will start PO pain meds today 10/27. [...] by counting pads --should f/u with her [employer] provider after BMT Premature menopause 12/26/2015 Postmenopausal atrophic vaginitis 12/26/2015 Dyspareunia 12/26/2015 documented as of this encounter (statuses as of 06/15/2022) [facility] Narrative* Problem Noted Date Resolved Date Menorrhagia with regular cycle 03/15/2017 1 03/03/2017 Overview: Added automatically from request for surgery [id number] History of pulmonary embolism 04/25/2016 Neoplastic (malignant) [...] FOLLOW-UP 10/27/20122015 Overview: 32 yo female from [place]. Family involved with care, at bedside. plan to discharge patient home - will arrange with case management for post op care as needed - follow up in OPD in 7-10 days Post-op pain 10/27/2012 12/26/2015 Overview: currently well controlled with [employer]. will start PO pain meds today 10/27. [...] by counting pads --should f/u with her [employer] provider after BMT Premature menopause 12/26/2015 Postmenopausal atrophic vaginitis 12/26/2015 Dyspareunia 12/26/2015 documented as of this encounter (statuses as of 07/17/2022) [facility] Narrative* Problem Noted Date Resolved Date Menorrhagia with regular cycle 03/15/2017 1 03/03/2017 Overview: Added automatically from request for surgery [id number] History of pulmonary embolism 04/25/2016 Neoplastic (malignant) [...] FOLLOW-UP 10/27/20122015 Overview: 32 yo female from [place] Family involved with care, at bedside. plan to discharge patient home - will arrange with case management for post op care as needed - follow up in [place]PD in 7-10 days Post-op pain 10/27/2012 12/26/2015 Overview: currently well controlled with [employer]. will start PO pain meds today 10/27. [...] by counting pads --should f/u with her [employer] provider after BMT Premature menopause 12/26/2015 Postmenopausal atrophic vaginitis 12/26/2015 Dyspareunia 12/26/2015 documented as of this encounter (statuses as of 07/17/2022) [facility] Narrative* Problem Noted Date Resolved Date Menorrhagia with regular cycle 03/15/2017 1 03/03/2017 Overview: Added automatically from request for surgery [id number] History of pulmonary embolism 04/25/2016 Neoplastic (malignant) [...] FOLLOW-UP 10/27/20122015 Overview: 32 yo female from [place] Family involved with care, at bedside. plan to discharge patient home - will arrange with case management for post op care as needed - follow up in [place]PD in 7-10 days Post-op pain 10/27/2012 12/26/2015 Overview: currently well controlled with [employer]. will start PO pain meds today 10/27. [...] by counting pads --should f/u with her [employer] provider after BMT Premature menopause 12/26/2015 Postmenopausal atrophic vaginitis 12/26/2015 Dyspareunia 12/26/2015 documented as of this encounter (statuses as of 07/18/2022) [facility] Narrative* Problem Noted Date Resolved Date Menorrhagia with regular cycle 03/15/2017 1 03/03/2017 Overview: Added automatically from request for surgery [id number] History of pulmonary embolism 04/25/2016 Neoplastic (malignant) [...] FOLLOW-UP 10/27/20122015 Overview: 32 yo female from [place] Family involved with care, at bedside. plan to discharge patient home - will arrange with case management for post op care as needed - follow up in [place]PD in 7-10 days Post-op pain 10/27/2012 12/26/2015 Overview: currently well controlled with [employer]. will start PO pain meds today 10/27. [...] by counting pads --should f/u with her [employer] provider after BMT Premature menopause 12/26/2015 Postmenopausal atrophic vaginitis 12/26/2015 Dyspareunia 12/26/2015 documented as of this encounter (statuses as of 07/19/2022) [facility] Narrative* Problem Noted Date Resolved Date Menorrhagia with regular cycle 03/15/2017 1 03/03/2017 Overview: Added automatically from request for surgery [id number] History of pulmonary embolism 04/25/2016 Neoplastic (malignant) [...] FOLLOW-UP 10/27/20122015 Overview: 32 yo female from [place] Family involved with care, at bedside. plan to discharge patient home - will arrange with case management for post op care as needed - follow up in [place]PD in 7-10 days Post-op pain 10/27/2012 12/26/2015 Overview: currently well controlled with [employer]. will start PO pain meds today 10/27. [...] by counting pads --should f/u with her [employer] provider after BMT Premature menopause 12/26/2015 Postmenopausal atrophic vaginitis 12/26/2015 Dyspareunia 12/26/2015 documented as of this encounter (statuses as of 07/19/2022) [facility] Narrative* Problem Noted Date Resolved Date Menorrhagia with regular cycle 03/15/2017 1 03/03/2017 Overview: Added automatically from request for surgery [id number] History of pulmonary embolism 04/25/2016 Neoplastic (malignant) [...] FOLLOW-UP 10/27/20122015 Overview: 32 yo female from [place] Family involved with care, at bedside. plan to discharge patient home - will arrange with case management for post op care as needed - follow up in [place]PD in 7-10 days Post-op pain 10/27/2012 12/26/2015 Overview: currently well controlled with [employer]. will start PO pain meds today 10/27. [...] by counting pads --should f/u with her [facility] [facility] provider after BMT Premature menopause 12/26/2015 Postmenopausal atrophic vaginitis 12/26/2015 Dyspareunia 12/26/2015 documented as of this encounter (statuses as of 07/25/2022) [facility] History of Past illness Narrative* Problem Noted Date Resolved Date Menorrhagia with regular cycle 03/15/2017 1 03/03/2017 Overview: Added automatically from request for surgery [id number] History of pulmonary embolism 04/25/2016 Neoplastic (malignant) [...] FOLLOW-UP 10/27/20122015 Overview: 32 yo female from [place], [place]. Family involved with care, at bedside. plan to discharge patient home - will arrange with case management for post op care as needed - follow up in OPD in 7-10 days Post-op pain 10/27/2012 12/26/2015 Overview: currently well controlled with [employer]. will start PO pain meds today 10/27. [...] by counting pads --should f/u with her [facility] provider after BMT Premature menopause 12/26/2015 Postmenopausal atrophic vaginitis 12/26/2015 Dyspareunia 12/26/2015 documented as of this encounter (statuses as of 07/25/2022) [facility] History of Past illness Narrative* Problem Noted Date Resolved Date Menorrhagia with regular cycle 03/15/2017 1 03/03/2017 Overview: Added automatically from request for surgery [id number] History of pulmonary embolism 04/25/2016 Neoplastic (malignant) [...] FOLLOW-UP 10/27/20122015 Overview: 32 yo female from [place], [place]. Family involved with care, at bedside. plan to discharge patient home - will arrange with case management for post op care as needed - follow up in OPD in 7-10 days Post-op pain 10/27/2012 12/26/2015 Overview: currently well controlled with [employer]. will start PO pain meds today 10/27. [...] by counting pads --should f/u with her [facility] [facility] provider after BMT Premature menopause 12/26/2015 Postmenopausal atrophic vaginitis 12/26/2015 Dyspareunia 12/26/2015 documented as of this encounter (statuses as of 07/25/2022) [facility] History of Past illness Narrative* Problem Noted Date Resolved Date Menorrhagia with regular cycle 03/15/2017 1 03/03/2017 Overview: Added automatically from request for surgery [id number] History of pulmonary embolism 04/25/2016 Neoplastic (malignant) [...] FOLLOW-UP 10/27/20122015 Overview: 32 yo female from [place], [place]. Family involved with care, at bedside. plan to discharge patient home - will arrange with case management for post op care as needed - follow up in OPD in 7-10 days Post-op pain 10/27/2012 12/26/2015 Overview: currently well controlled with [employer]. will start PO pain meds today 10/27. [...] by counting pads --should f/u with her [employer] provider after BMT Premature menopause 12/26/2015 Postmenopausal atrophic vaginitis 12/26/2015 Dyspareunia 12/26/2015 documented as of this encounter (statuses as of 08/02/2022) [facility] History of Past illness Narrative* Problem Noted Date Resolved Date Menorrhagia with regular cycle 03/15/2017 1 03/03/2017 Overview: Added automatically from request for surgery [id number] History of pulmonary embolism 04/25/2016 Neoplastic (malignant) [...] FOLLOW-UP 10/27/20122015 Overview: 32 yo female from [place]. Family involved with care, at bedside. plan to discharge patient home - will arrange with case management for post op care as needed - follow up in OPD in 7-10 days Post-op pain 10/27/2012 12/26/2015 Overview: currently well controlled with [employer]. will start PO pain meds today 10/27. [...] by counting pads --should f/u with her [facility] [facility] provider after BMT Premature menopause 12/26/2015 Postmenopausal atrophic vaginitis 12/26/2015 Dyspareunia 12/26/2015 documented as of this encounter (statuses as of 08/05/2022) [facility] of Past illness Narrative* Problem Noted Date Resolved Date Menorrhagia with regular cycle 03/15/2017 1 03/03/2017 Overview: Added automatically from request for surgery [id number] History of pulmonary embolism 04/25/2016 Neoplastic (malignant) [...] FOLLOW-UP 10/27/20122015 Overview: 32 yo female from [place]. Family involved with care, at bedside. plan to discharge patient home - will arrange with case management for post op care as needed - follow up in OPD in 7-10 days Post-op pain 10/27/2012 12/26/2015 Overview: currently well controlled with [employer]. will start PO pain meds today 10/27. [...] by counting pads --should f/u with her [facility] [facility] provider after BMT Premature menopause 12/26/2015 Postmenopausal atrophic vaginitis 12/26/2015 Dyspareunia 12/26/2015 documented as of this encounter (statuses as of 08/10/2022) [place] [id number] History of Past illness Narrative* Problem Noted Date Resolved Date Menorrhagia with regular cycle 03/15/2017 1 03/03/2017 Overview: Added automatically from request for surgery [id number] History of pulmonary embolism 04/25/2016 Neoplastic (malignant) [...] FOLLOW-UP 10/27/20122015 Overview: 32 yo female from [place]. Family involved with care, at bedside. plan to discharge patient home - will arrange with case management for post op care as needed - follow up in OPD in 7-10 days Post-op pain 10/27/2012 12/26/2015 Overview: currently well controlled with [employer]. will start PO pain meds today 10/27. [...] by counting pads --should f/u with her [employer] provider after BMT Premature menopause 12/26/2015 Postmenopausal atrophic vaginitis 12/26/2015 Dyspareunia 12/26/2015 documented as of this encounter (statuses as of 08/10/2022) [facility] of Past [facility] Narrative* Problem Noted Date Resolved Date Menorrhagia with regular cycle 03/15/2017 1 03/03/2017 Overview: Added automatically from request for surgery [id number] History of pulmonary embolism 04/25/2016 Neoplastic (malignant) [...] FOLLOW-UP 10/27/20122015 Overview: 32 yo female from [place]. Family involved with care, at bedside. plan to discharge patient home - will arrange with case management for post op care as needed - follow up in OPD in 7-10 days Post-op pain 10/27/2012 12/26/2015 Overview: currently well controlled with [employer]. will start PO pain meds today 10/27. [...] by counting pads --should f/u with her [employer] provider after BMT Premature menopause 12/26/2015 Postmenopausal atrophic vaginitis 12/26/2015 Dyspareunia 12/26/2015 documented as of this encounter (statuses as of 08/17/2022) [facility] of Past illness Narrative* Problem Noted Date Resolved Date Menorrhagia with regular cycle 03/15/2017 1 03/03/2017 Overview: Added automatically from request for surgery [id number] History of pulmonary embolism 04/25/2016 Neoplastic (malignant) [...] FOLLOW-UP 10/27/20122015 Overview: 32 yo female from [place]. Family involved with care, at bedside. plan to discharge patient home - will arrange with case management for post op care as needed - follow up in OPD in 7-10 days Post-op pain 10/27/2012 12/26/2015 Overview: currently well controlled with [employer]. will start PO pain meds today 10/27. [...] by counting pads --should f/u with her [employer] provider after BMT Premature menopause 12/26/2015 Postmenopausal atrophic vaginitis 12/26/2015 Dyspareunia 12/26/2015 documented as of this encounter (statuses as of 08/23/2022) [place] [id number] History of Past illness Narrative* Problem Noted Date Diagnosed Date Resolved Date Menorrhagia with regular cycle 03/15/2017 01/01/2018 Overview: Added automatically from request for surgery [id number] History of pulmonary embolism 04/25/2016 01/01/2018 Neoplastic [...] FOLLOW-UP 10/27/2012 Overview: 32 yo female from [place]. Family involved with care, at bedside. plan to discharge patient home - will arrange with case management for post op care as needed - follow up in OPD in 7-10 days Post-op pain 10/27/2012 12/26/2015 Overview: currently well controlled with [employer]. will start PO pain meds today 10/27. [...] by counting pads --should f/u with her [employer] provider after BMT Premature menopause 12/26/19 16 Postmenopausal atrophic vaginitis 12/26/2015 Dyspareunia 12/26/2015 documented as of this encounter (statuses as of 08/27/2022) [facility] of Past illness Narrative* Problem Noted Date Diagnosed Date Resolved Date Menorrhagia with regular cycle 03/15/2017 01/01/2018 Overview: Added automatically from request for surgery [id number] History of pulmonary embolism 04/25/2016 01/01/2018 Neoplastic [...] FOLLOW-UP 10/27/2012 Overview: 32 yo female from [place]. Family involved with care, at bedside. plan to discharge patient home - will arrange with case management for post op care as needed - follow up in OPD in 7-10 days Post-op pain 10/27/2012 12/26/2015 Overview: currently well controlled with [employer]. will start PO pain meds today 10/27. [...] by counting pads --should f/u with her [employer] provider after BMT Premature menopause 12/26/19 16 Postmenopausal atrophic vaginitis 12/26/2015 Dyspareunia 12/26/2015 documented as of this encounter (statuses as of 08/30/2022) [facility] of Past [facility] Narrative* Problem Noted Date Diagnosed Date Resolved Date Menorrhagia with regular cycle 03/15/2017 01/01/2018 Overview: Added automatically from request for surgery [id number] History of pulmonary embolism 04/25/2016 01/01/2018 Neoplastic [...] FOLLOW-UP 10/27/2012 Overview: 32 yo female from [place]. Family involved with care, at bedside. plan to discharge patient home - will arrange with case management for post op care as needed - follow up in OPD in 7-10 days Post-op pain 10/27/2012 12/26/2015 Overview: currently well controlled with [employer]. will start PO pain meds today 10/27. [...] by counting pads --should f/u with her [employer] provider after BMT Premature menopause 12/26/19 16 Postmenopausal atrophic vaginitis 12/26/2015 Dyspareunia 12/26/2015 documented as of this encounter (statuses as of 08/31/2022) [facility] of Past [facility] Narrative* Problem Noted Date Diagnosed Date Resolved Date Menorrhagia with regular cycle 03/15/2017 01/01/2018 Overview: Added automatically from request for surgery [id number] History of pulmonary embolism 04/25/2016 01/01/2018 Neoplastic [...] FOLLOW-UP 10/27/2012 Overview: 32 yo female from [place]. Family involved with care, at bedside. plan to discharge patient home - will arrange with case management for post op care as needed - follow up in OPD in 7-10 days Post-op pain 10/27/2012 12/26/2015 Overview: currently well controlled with [employer]. will start PO pain meds today 10/27. [...] by counting pads --should f/u with her [employer] provider after BMT Premature menopause 12/26/19 16 Postmenopausal atrophic vaginitis 12/26/2015 Dyspareunia 12/26/2015 documented as of this encounter (statuses as of 09/01/2022) [facility] Narrative* Problem Noted Date Diagnosed Date Resolved Date Menorrhagia with regular cycle 03/15/2017 01/01/2018 Overview: Added automatically from request for surgery [id number] History of pulmonary embolism 04/25/2016 01/01/2018 Neoplastic [...] FOLLOW-UP 10/27/2012 Overview: 32 yo female from [place]. Family involved with care, at bedside. plan to discharge patient home - will arrange with case management for post op care as needed - follow up in OPD in 7-10 days Post-op pain 10/27/2012 12/26/2015 Overview: currently well controlled with [employer]. will start PO pain meds today 10/27. [...] by counting pads --should f/u with her [employer] provider after BMT Premature menopause 12/26/19 16 Postmenopausal atrophic vaginitis 12/26/2015 Dyspareunia 12/26/2015 documented as of this encounter (statuses as of 09/06/2022) [facility] of Past [facility] Narrative* Problem Noted Date Diagnosed Date Resolved Date Menorrhagia with regular cycle 03/15/2017 01/01/2018 Overview: Added automatically from request for surgery [id number] History of pulmonary embolism 04/25/2016 01/01/2018 Neoplastic [...] FOLLOW-UP 10/27/2012 Overview: 32 yo female from [place]. Family involved with care, at bedside. plan to discharge patient home - will arrange with case management for post op care as needed - follow up in OPD in 7-10 days Post-op pain 10/27/2012 12/26/2015 Overview: currently well controlled with [employer]. will start PO pain meds today 10/27. [...] by counting pads --should f/u with her [employer] provider after BMT Premature menopause 12/26/19 16 Postmenopausal atrophic vaginitis 12/26/2015 Dyspareunia 12/26/2015 documented as of this encounter (statuses as of 09/13/2022) [facility] Narrative* Problem Noted Date Diagnosed Date Resolved Date Menorrhagia with regular cycle 03/15/2017 01/01/2018 Overview: Added automatically from request for surgery [id number] History of pulmonary embolism 04/25/2016 01/01/2018 Neoplastic [...] FOLLOW-UP 10/27/2012 Overview: 32 yo female from [place]. Family involved with care, at bedside. plan to discharge patient home - will arrange with case management for post op care as needed - follow up in OPD in 7-10 days Post-op pain 10/27/2012 12/26/2015 Overview: currently well controlled with [employer]. will start PO pain meds today 10/27. [...] by counting pads --should f/u with her [employer] provider after BMT Premature menopause 12/26/19 16 Postmenopausal atrophic vaginitis 12/26/2015 Dyspareunia 12/26/2015 documented as of this encounter (statuses as of 09/28/2022) [facility] Past [facility] Narrative* Problem Noted Date Diagnosed Date Resolved Date Menorrhagia with regular cycle 03/15/2017 01/01/2018 Overview: Added automatically from request for surgery [id number] History of pulmonary embolism 04/25/2016 01/01/2018 Neoplastic [...] FOLLOW-UP 10/27/2012 Overview: 32 yo female from [place]. Family involved with care, at bedside. plan to discharge patient home - will arrange with case management for post op care as needed - follow up in OPD in 7-10 days Post-op pain 10/27/2012 12/26/2015 Overview: currently well controlled with [employer]. will start PO pain meds today 10/27. [...] by counting pads --should f/u with her [employer] provider after BMT Premature menopause 12/26/19 16 Postmenopausal atrophic vaginitis 12/26/2015 Dyspareunia 12/26/2015 documented as of this encounter (statuses as of 10/08/2022) [facility] Narrative* Problem Noted Date Diagnosed Date Resolved Date Menorrhagia with regular cycle 03/15/2017 01/01/2018 Overview: Added automatically from request for surgery [id number] History of pulmonary embolism 04/25/2016 01/01/2018 Neoplastic [...] FOLLOW-UP 10/27/2012 Overview: 32 yo female from [place]. Family involved with care, at bedside. plan to discharge patient home - will arrange with case management for post op care as needed - follow up in OPD in 7-10 days Post-op pain 10/27/2012 12/26/2015 Overview: currently well controlled with [employer]. will start PO pain meds today 10/27. [...] by counting pads --should f/u with her [employer] provider after BMT Premature menopause 12/26/19 16 Postmenopausal atrophic vaginitis 12/26/2015 Dyspareunia 12/26/2015 documented as of this encounter (statuses as of 10/09/2022) [facility] Past [facility] Narrative* Problem Noted Date Diagnosed Date Resolved Date Menorrhagia with regular cycle 03/15/2017 01/01/2018 Overview: Added automatically from request for surgery [id number] History of pulmonary embolism 04/25/2016 01/01/2018 Neoplastic [...] FOLLOW-UP 10/27/2012 Overview: 32 yo female from [place]. Family involved with care, at bedside. plan to discharge patient home - will arrange with case management for post op care as needed - follow up in OPD in 7-10 days Post-op pain 10/27/2012 12/26/2015 Overview: currently well controlled with [employer]. will start PO pain meds today 10/27. [...] by counting pads --should f/u with her [employer] provider after BMT Premature menopause 12/26/19 16 Postmenopausal atrophic vaginitis 12/26/2015 Dyspareunia 12/26/2015 documented as of this encounter (statuses as of 10/09/2022) [facility] Narrative* Problem Noted Date Diagnosed Date Resolved Date Menorrhagia with regular cycle 03/15/2017 01/01/2018 Overview: Added automatically from request for surgery [id number] History of pulmonary embolism 04/25/2016 01/01/2018 Neoplastic [...] FOLLOW-UP 10/27/2012 Overview: 32 yo female from [place]. Family involved with care, at bedside. plan to discharge patient home - will arrange with case management for post op care as needed - follow up in OPD in 7-10 days Post-op pain 10/27/2012 12/26/2015 Overview: currently well controlled with [employer]. will start PO pain meds today 10/27. [...] by counting pads --should f/u with her [employer] provider after BMT Premature menopause 12/26/19 16 Postmenopausal atrophic vaginitis 12/26/2015 Dyspareunia 12/26/2015 documented as of this encounter (statuses as of 10/10/2022) [facility] Narrative* Problem Noted Date Diagnosed Date Resolved Date Menorrhagia with regular cycle 03/15/2017 01/01/2018 Overview: Added automatically from request for surgery [id number] History of pulmonary embolism 04/25/2016 01/01/2018 Neoplastic [...] FOLLOW-UP 10/27/2012 Overview: 32 yo female from [place]. Family involved with care, at bedside. plan to discharge patient home - will arrange with case management for post op care as needed - follow up in OPD in 7-10 days Post-op pain 10/27/2012 12/26/2015 Overview: currently well controlled with [employer]. will start PO pain meds today 10/27. [...] by counting pads --should f/u with her [employer] provider after BMT Premature menopause 12/26/19 16 Postmenopausal atrophic vaginitis 12/26/2015 Dyspareunia 12/26/2015 documented as of this encounter (statuses as of 10/10/2022) [facility] Narrative* Problem Noted Date Diagnosed Date Resolved Date Menorrhagia with regular cycle 03/15/2017 01/01/2018 Overview: Added automatically from request for surgery [id number] History of pulmonary embolism 04/25/2016 01/01/2018 Neoplastic [...] FOLLOW-UP 10/27/2012 Overview: 32 yo female from [place]. Family involved with care, at bedside. plan to discharge patient home - will arrange with case management for post op care as needed - follow up in OPD in 7-10 days Post-op pain 10/27/2012 12/26/2015 Overview: currently well controlled with [employer]. will start PO pain meds today 10/27. [...] by counting pads --should f/u with her [employer] provider after BMT Premature menopause 12/26/19 16 Postmenopausal atrophic vaginitis 12/26/2015 Dyspareunia 12/26/2015 documented as of this encounter (statuses as of 10/18/2022) [facility] Narrative* Problem Noted Date Diagnosed Date Resolved Date Menorrhagia with regular cycle 03/15/2017 01/01/2018 Overview: Added automatically from request for surgery [id number] History of pulmonary embolism 04/25/2016 01/01/2018 Neoplastic [...] FOLLOW-UP 10/27/2012 Overview: 32 yo female from [place]. Family involved with care, at bedside. plan to discharge patient home - will arrange with case management for post op care as needed - follow up in OPD in 7-10 days Post-op pain 10/27/2012 12/26/2015 Overview: currently well controlled with [employer]. will start PO pain meds today 10/27. [...] by counting pads --should f/u with her [employer] provider after BMT Premature menopause 12/26/19 16 Postmenopausal atrophic vaginitis 12/26/2015 Dyspareunia 12/26/2015 documented as of this encounter (statuses as of 10/18/2022) [facility] Narrative* Problem Noted Date Diagnosed Date Resolved Date Menorrhagia with regular cycle 03/15/2017 01/01/2018 Overview: Added automatically from request for surgery [id number] History of pulmonary embolism 04/25/2016 01/01/2018 Neoplastic [...] FOLLOW-UP 10/27/2012 Overview: 32 yo female from [place]. Family involved with care, at bedside. plan to discharge patient home - will arrange with case management for post op care as needed - follow up in OPD in 7-10 days Post-op pain 10/27/2012 12/26/2015 Overview: currently well controlled with [employer]. will start PO pain meds today 10/27. [...] by counting pads --should f/u with her [employer] provider after BMT Premature menopause 12/26/19 16 Postmenopausal atrophic vaginitis 12/26/2015 Dyspareunia 12/26/2015 documented as of this encounter (statuses as of 10/19/2022) [facility] Narrative* Problem Noted Date Diagnosed Date Resolved Date Menorrhagia with regular cycle 03/15/2017 01/01/2018 Overview: Added automatically from request for surgery [id number] History of pulmonary embolism 04/25/2016 01/01/2018 Neoplastic [...] FOLLOW-UP 10/27/2012 Overview: 32 yo female from [place]. Family involved with care, at bedside. plan to discharge patient home - will arrange with case management for post op care as needed - follow up in [place]PD in 7-10 days Post-op pain 10/27/2012 12/26/2015 Overview: currently well controlled with [employer]. will start PO pain meds today 10/27. [...] by counting pads --should f/u with her [employer] provider after BMT Premature menopause 12/26/19 16 Postmenopausal atrophic vaginitis 12/26/2015 Dyspareunia 12/26/2015 documented as of this encounter (statuses as of 10/24/2022) [facility] Narrative* Problem Noted Date Diagnosed Date Resolved Date Menorrhagia with regular cycle 03/15/2017 01/01/2018 Overview: Added automatically from request for surgery [id number] History of pulmonary embolism 04/25/2016 01/01/2018 Neoplastic [...] FOLLOW-UP 10/27/2012 Overview: 32 yo female from [place]. Family involved with care, at bedside. plan to discharge patient home - will arrange with case management for post op care as needed - follow up in [place]PD in 7-10 days Post-op pain 10/27/2012 12/26/2015 Overview: currently well controlled with [employer]. will start PO pain meds today 10/27. [...] by counting pads --should f/u with her [employer] provider after BMT Premature menopause 12/26/19 16 Postmenopausal atrophic vaginitis 12/26/2015 Dyspareunia 12/26/2015 documented as of this encounter (statuses as of 10/26/2022) [facility] Narrative* Problem Noted Date Diagnosed Date Resolved Date Menorrhagia with regular cycle 03/15/2017 01/01/2018 Overview: Added automatically from request for surgery [id number] History of pulmonary embolism 04/25/2016 01/01/2018 Neoplastic [...] FOLLOW-UP 10/27/2012 Overview: 32 yo female from [place] Family involved with care, at bedside. plan to discharge patient home - will arrange with case management for post op care as needed - follow up in [place]PD in 7-10 days Post-op pain 10/27/2012 12/26/2015 Overview: currently well controlled with [employer]. will start PO pain meds today 10/27. [...] by counting pads --should f/u with her [employer] provider after BMT Premature menopause 12/26/19 16 Postmenopausal atrophic vaginitis 12/26/2015 Dyspareunia 12/26/2015 documented as of this encounter (statuses as of 11/06/2022) [facility] Narrative* Problem Noted Date Diagnosed Date Resolved Date Menorrhagia with regular cycle 03/15/2017 01/01/2018 Overview: Added automatically from request for surgery [id number] History of pulmonary embolism 04/25/2016 01/01/2018 Neoplastic [...] FOLLOW-UP 10/27/2012 Overview: 32 yo female from [place] Family involved with care, at bedside. plan to discharge patient home - will arrange with case management for post op care as needed - follow up in [place]PD in 7-10 days Post-op pain 10/27/2012 12/26/2015 Overview: currently well controlled with [employer]. will start PO pain meds today 10/27. [...] by counting pads --should f/u with her [employer] provider after BMT Premature menopause 12/26/19 16 Postmenopausal atrophic vaginitis 12/26/2015 Dyspareunia 12/26/2015 documented as of this encounter (statuses as of 11/11/2022) [facility] History of Past illness Narrative* Problem Noted Date Diagnosed Date Resolved Date Menorrhagia with regular cycle 03/15/2017 01/01/2018 Overview: Added automatically from request for surgery [id number] History of pulmonary embolism 04/25/2016 01/01/2018 Neoplastic [...] FOLLOW-UP 10/27/2012 Overview: 32 yo female from [place], [place]. Family involved with care, at bedside. plan to discharge patient home - will arrange with case management for post op care as needed - follow up in OPD in 7-10 days Post-op pain 10/27/2012 12/26/2015 Overview: currently well controlled with [employer]. will start PO pain meds today 10/27. [...] by counting pads --should f/u with her [facility] provider after BMT Premature menopause 12/26/19 16 Postmenopausal atrophic vaginitis 12/26/2015 Dyspareunia 12/26/2015 documented as of this encounter (statuses as of 11/13/2022) [facility] History of Past illness Narrative* Problem Noted Date Diagnosed Date Resolved Date Menorrhagia with regular cycle 03/15/2017 01/01/2018 Overview: Added automatically from request for surgery [id number] History of pulmonary embolism 04/25/2016 01/01/2018 Neoplastic [...] FOLLOW-UP 10/27/2012 Overview: 32 yo female from [place], [place]. Family involved with care, at bedside. plan to discharge patient home - will arrange with case management for post op care as needed - follow up in OPD in 7-10 days Post-op pain 10/27/2012 12/26/2015 Overview: currently well controlled with [employer]. will start PO pain meds today 10/27. [...] by counting pads --should f/u with her [facility] [facility] provider after BMT Premature menopause 12/26/19 16 Postmenopausal atrophic vaginitis 12/26/2015 Dyspareunia 12/26/2015 documented as of this encounter (statuses as of 11/26/2022) [facility] of Past [facility] Narrative* Problem Noted Date Diagnosed Date Resolved Date Menorrhagia with regular cycle 03/15/2017 01/01/2018 Overview: Added automatically from request for surgery [id number] History of pulmonary embolism 04/25/2016 01/01/2018 Neoplastic [...] FOLLOW-UP 10/27/2012 Overview: 32 yo female from [place], [place]. Family involved with care, at bedside. plan to discharge patient home - will arrange with case management for post op care as needed - follow up in OPD in 7-10 days Post-op pain 10/27/2012 12/26/2015 Overview: currently well controlled with [employer]. will start PO pain meds today 10/27. [...] by counting pads --should f/u with her [facility] [facility] provider after BMT Premature menopause 12/26/19 16 Postmenopausal atrophic vaginitis 12/26/2015 Dyspareunia 12/26/2015 documented as of this encounter (statuses as of 12/04/2022) [facility] of Past [facility] Narrative* Problem Noted Date Diagnosed Date Resolved Date Menorrhagia with regular cycle 03/15/2017 01/01/2018 Overview: Added automatically from request for surgery [id number] History of pulmonary embolism 04/25/2016 01/01/2018 Neoplastic [...] FOLLOW-UP 10/27/2012 Overview: 32 yo female from [place]. Family involved with care, at bedside. plan to discharge patient home - will arrange with case management for post op care as needed - follow up in OPD in 7-10 days Post-op pain 10/27/2012 12/26/2015 Overview: currently well controlled with [employer]. will start PO pain meds today 10/27. [...] by counting pads --should f/u with her [facility] provider after BMT Premature menopause 12/26/19 16 Postmenopausal atrophic vaginitis 12/26/2015 Dyspareunia 12/26/2015 documented as of this encounter (statuses as of 12/18/2022) [facility] of [facility] Narrative* Problem Noted Date Diagnosed Date Resolved Date Menorrhagia with regular cycle 03/15/2017 01/01/2018 Overview: Added automatically from request for surgery [id number] History of pulmonary embolism 04/25/2016 01/01/2018 Neoplastic [...] FOLLOW-UP 10/27/2012 Overview: 32 yo female from [place]. Family involved with care, at bedside. plan to discharge patient home - will arrange with case management for post op care as needed - follow up in OPD in 7-10 days Post-op pain 10/27/2012 12/26/2015 Overview: currently well controlled with [employer]. will start PO pain meds today 10/27. [...] by counting pads --should f/u with her [facility] provider after BMT Premature menopause 12/26/19 16 Postmenopausal atrophic vaginitis 12/26/2015 Dyspareunia 12/26/2015 documented as of this encounter (statuses as of 12/31/2022) [facility] of [facility] Narrative* Problem Noted Date Diagnosed Date Resolved Date Menorrhagia with regular cycle 03/15/2017 01/01/2018 Overview: Added automatically from request for surgery [id number] History of pulmonary embolism 04/25/2016 01/01/2018 Neoplastic [...] FOLLOW-UP 10/27/2012 Overview: 32 yo female from [place]. Family involved with care, at bedside. plan to discharge patient home - will arrange with case management for post op care as needed - follow up in OPD in 7-10 days Post-op pain 10/27/2012 12/26/2015 Overview: currently well controlled with [employer]. will start PO pain meds today 10/27. [...] by counting pads --should f/u with her [facility] provider after BMT Premature menopause 12/26/19 16 Postmenopausal atrophic vaginitis 12/26/2015 Dyspareunia 12/26/2015 documented as of this encounter (statuses as of 01/03/2023) [facility] Narrative* Problem Noted Date Diagnosed Date Resolved Date Menorrhagia with regular cycle 03/15/2017 01/01/2018 Overview: Added automatically from request for surgery [id number] History of pulmonary embolism 04/25/2016 01/01/2018 Neoplastic [...] FOLLOW-UP 10/27/2012 Overview: 32 yo female from [place]. Family involved with care, at bedside. plan to discharge patient home - will arrange with case management for post op care as needed - follow up in OPD in 7-10 days Post-op pain 10/27/2012 12/26/2015 Overview: currently well controlled with [employer]. will start PO pain meds today 10/27. [...] by counting pads --should f/u with her [facility] provider after BMT Premature menopause 12/26/19 16 Postmenopausal atrophic vaginitis 12/26/2015 Dyspareunia 12/26/2015 documented as of this encounter (statuses as of 01/03/2023) [facility] of Past illness Narrative* Problem Noted Date Diagnosed Date Resolved Date Menorrhagia with regular cycle 03/15/2017 01/01/2018 Overview: Added automatically from request for surgery [id number] History of pulmonary embolism 04/25/2016 01/01/2018 Neoplastic [...] FOLLOW-UP 10/27/2012 Overview: 32 yo female from [place]. Family involved with care, at bedside. plan to discharge patient home - will arrange with case management for post op care as needed - follow up in OPD in 7-10 days Post-op pain 10/27/2012 12/26/2015 Overview: currently well controlled with [employer]. will start PO pain meds today 10/27. [...] by counting pads --should f/u with her [facility] provider after BMT Premature menopause 12/26/19 16 Postmenopausal atrophic vaginitis 12/26/2015 Dyspareunia 12/26/2015 documented as of this encounter (statuses as of 01/07/2023) [facility] of [facility] Narrative* Problem Noted Date Diagnosed Date Resolved Date Menorrhagia with regular cycle 03/15/2017 01/01/2018 Overview: Added automatically from request for surgery [id number] History of pulmonary embolism 04/25/2016 01/01/2018 Neoplastic [...] FOLLOW-UP 10/27/2012 Overview: 32 yo female from [place]. Family involved with care, at bedside. plan to discharge patient home - will arrange with case management for post op care as needed - follow up in OPD in 7-10 days Post-op pain 10/27/2012 12/26/2015 Overview: currently well controlled with [employer]. will start PO pain meds today 10/27. 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 Cancer related pain Neoplasm related pain (acute) (chronic) Encounter for palliative care [facility] Diagnosis 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) Nausea Nausea alone [facility] Diagnosis Simple chronic bronchitis (HCC)- Primary Simple chronic bronchitis Restrictive lung disease Other diseases of lung, not elsewhere classified [facility] Diagnosis 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 [facility] Diagnosis Nodular sclerosis Hodgkin lymphoma of [...] Painful skin lesion [facility] Diagnosis Muscle cramps Cramp of [...] for palliative care documented in [facility] [employer] Other [employer] [facility]* Diagnosis 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 [facility] Diagnosis 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 [facility] Diagnosis Muscle cramps Cramp of limb Nodular sclerosis classical Hodgkin lymphoma (HCC) Hodgkin's disease, nodular sclerosis, unspecified site, extranodal and solid organ sites [facility] Diagnosis Muscle cramps Cramp of limb Nodular sclerosing Hodgkin's lymphoma, unspecified body region (HCC) [facility] Diagnosis 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) Nausea Nausea alone documented in this encounter [facility] note* Diagnosis Hidradenitis suppurativa- Primary Hidradenitis Painful skin lesion Dermatofibroma of left knee [facility] Diagnosis 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 [facility] Diagnosis Nodular sclerosing Hodgkin's lymphoma, 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) Polyneuropathy due to drugs [facility] Diagnosis Simple chronic bronchitis (HCC) Simple chronic bronchitis [facility] Diagnosis Muscle cramps Cramp of limb Nodular sclerosing Hodgkin's lymphoma, unspecified body region (HCC) [facility] Diagnosis 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 Cancer related pain Neoplasm related pain (acute) (chronic) Encounter for palliative care [facility] Diagnosis 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 [facility] Diagnosis Nodular sclerosing Hodgkin's lymphoma, unspecified body region (HCC)- Primary Encounter for antineoplastic immunotherapy [facility] Diagnosis 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 Encounter for antineoplastic immunotherapy [facility] Diagnosis Encounter for palliative care- Primary 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) Muscle cramps Cramp of limb [facility] Diagnosis Muscle cramps Cramp of limb Nodular sclerosis classical Hodgkin lymphoma (HCC) Hodgkin's disease, nodular sclerosis, unspecified site, extranodal and solid organ sites [facility] Diagnosis Muscle cramps Cramp of limb Nodular sclerosing Hodgkin's lymphoma, unspecified body region (HCC) [facility] Diagnosis 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 [facility] Diagnosis Nodular sclerosing Hodgkin's lymphoma, unspecified body region (HCC)- Primary [facility] Diagnosis Nodular sclerosing Hodgkin's lymphoma, unspecified body region (HCC)- Primary History of pulmonary embolism Personal history of pulmonary embolism Chemotherapy-induced neuropathy (HCC) Polyneuropathy due to drugs Muscle cramps Cramp of limb [facility] Diagnosis 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 [facility] Diagnosis History of pulmonary embolism Personal history of pulmonary embolism [facility] Diagnosis 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 Nausea Nausea alone [facility] Diagnosis 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 [facility] Diagnosis Acne vulgaris- Primary Other acne [facility] Diagnosis Nodular sclerosing Hodgkin's lymphoma, 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) Polyneuropathy due to drugs [facility] Diagnosis Nodular sclerosis Hodgkin lymphoma of [...] for palliative care [facility] Diagnosis 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 [facility] Diagnosis Nodular sclerosing Hodgkin's lymphoma, [...] to drugs [facility] Diagnosis Chemotherapy-induced neuropathy (HCC)- Primary Polyneuropathy [...] specified administrative purpose [facility] Diagnosis 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 [facility] Diagnosis Nodular sclerosing Hodgkin's lymphoma, 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) Polyneuropathy due to drugs [facility] Diagnosis NO SHOW- Primary [facility] Diagnosis 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 Uterine leiomyoma, unspecified location [facility]* Diagnosis Muscle cramps Cramp of limb Nodular sclerosis classical Hodgkin lymphoma (HCC) Hodgkin's disease, nodular sclerosis, unspecified site, extranodal and solid organ sites 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 Cancer related pain Neoplasm related pain (acute) (chronic) Encounter for palliative care [facility] Diagnosis Dyspnea on exertion- Primary Other dyspnea and respiratory abnormality [facility] Diagnosis 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 Cancer related pain Neoplasm related pain (acute) (chronic) Encounter for palliative care [facility] Diagnosis Nodular sclerosing Hodgkin's lymphoma, unspecified body region (HCC)- Primary [facility] Diagnosis Palliative care by specialist- Primary Opioid use agreement exists Encounters for other specified administrative purpose Cancer related pain Neoplasm related pain (acute) (chronic) 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) Muscle cramps Cramp of limb [facility] Diagnosis Nodular sclerosing Hodgkin's lymphoma, 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) Polyneuropathy due to drugs [facility] Diagnosis Chronic cough- Primary Cough Productive [...] for palliative care [facility] Diagnosis Nodular sclerosing Hodgkin's lymphoma, 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) Polyneuropathy due to drugs [facility] Diagnosis Nodular sclerosing Hodgkin's lymphoma, 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) Polyneuropathy due to drugs [facility] Diagnosis Hidradenitis suppurativa- Primary Hidradenitis Painful skin lesion [facility] Diagnosis Palliative care by specialist- Primary Nodular sclerosing Hodgkin's lymphoma, unspecified body region (HCC) Cancer related pain Neoplasm related pain (acute) (chronic) Opioid use agreement exists Encounters for other specified administrative purpose Muscle cramps Cramp of limb [facility]* Diagnosis 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) Nausea Nausea alone [facility]* Diagnosis 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 Cancer related pain Neoplasm related pain (acute) (chronic) Encounter for palliative care [facility]* Diagnosis Nodular sclerosing Hodgkin's lymphoma, 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) Polyneuropathy due to drugs [facility] Diagnosis History of pulmonary embolism Personal history of pulmonary embolism [facility]* Diagnosis Muscle cramps Cramp of limb Nodular sclerosing Hodgkin's lymphoma, unspecified body region (HCC) [facility] Diagnosis Nodular sclerosis Hodgkin lymphoma [...] hypothyroidism Unspecified hypothyroidism [facility] Diagnosis Muscle cramps Cramp of limb Nodular sclerosing Hodgkin's lymphoma, 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 Cancer related pain Neoplasm related pain (acute) (chronic) Encounter for palliative care [facility]* Diagnosis 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 [facility] noteNo assessment information availableMarymount [facility] Work Phone: Evaluation note* Diagnosis Chronic cough Cough [facility]* Diagnosis Bronchitis Bronchitis, not specified as acute or chronic [facility]* Diagnosis Restrictive lung disease- Primary Other diseases of lung, not elsewhere classified Chronic cough Cough Post-nasal drip Postnasal drip Hoarseness Dysphonia Dysphagia, unspecified type History of pulmonary embolism Personal history of pulmonary embolism [facility]* Diagnosis Bronchitis, not specified as acute or chronic- Primary Chronic cough Cough [facility]* Diagnosis COVID-19- Primary documented in this encounter [facility]* Diagnosis COVID-19 documented in this encounter [facility]* Diagnosis 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 [facility]* Diagnosis 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 Cancer related pain Neoplasm related pain (acute) (chronic) Encounter for palliative care Muscle cramps Cramp of limb Nodular sclerosing Hodgkin's lymphoma, unspecified body region (HCC) [facility]* Diagnosis 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 Restrictive lung disease Other diseases of lung, not elsewhere classified Malaise and fatigue Other malaise and fatigue [facility]* Diagnosis Influenza with pneumonia- Primary Restrictive lung disease Other diseases of lung, not elsewhere classified Hospital discharge follow-up Other follow-up examination [facility] Diagnosis Influenza with pneumonia documented [...] for palliative care [facility] Diagnosis Dyspnea on exertion Other dyspnea and respiratory abnormality [facility]* Diagnosis Dysphagia, unspecified type Hoarseness Dysphonia Gastroesophageal reflux disease, unspecified whether esophagitis present LPRD (laryngopharyngeal reflux disease) Other diseases of larynx [facility] Diagnosis Dyspnea on exertion Other dyspnea and respiratory abnormality [facility] Diagnosis Restrictive lung disease- Primary [...] for palliative care [facility] Diagnosis 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 Restrictive lung disease Other diseases of lung, not elsewhere classified Malaise and fatigue Other malaise and fatigue [facility] Diagnosis Bronchitis- Primary Bronchitis, not [...] Simple chronic bronch[facility] Diagnosis Dysphagia, unspecified type- Primary [facility] Diagnosis Dysphagia, unspecified type [facility] Diagnosis Encounter for palliative care- Primary Muscle cramps Cramp of limb Nodular sclerosing Hodgkin's lymphoma, unspecified body region (HCC) Arthritis pain Arthropathy, unspecified, site unspecified 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 Cancer related pain Neoplasm related pain (acute) (chronic) [facility] Diagnosis Dysphagia, unspecified type Gastroesophageal reflux disease, unspecified whether esophagitis present [facility] Diagnosis Pain- Primary Generalized pain [facility]* Diagnosis Muscle cramps Cramp of limb Nodular sclerosing Hodgkin's lymphoma, 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 Cancer related pain Neoplasm related pain (acute) (chronic) Encounter for palliative care [facility] Diagnosis 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 Restrictive lung disease Other diseases of lung, not elsewhere classified Anxiety and depression Dysthymic disorder [facility]* Diagnosis Pneumonia due to infectious organism, unspecified laterality, unspecified part of lung- Primary Pulmonary hypertension (HCC) Other chronic pulmonary heart diseases Hospital discharge follow-up Other follow-up examination documented in this encounter [facility] note* Diagnosis Muscle cramps- Primary Cramp of limb Nodular sclerosing Hodgkin's lymphoma, 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 Encounter for palliative care Psoriatic arthritis (HCC) Psoriatic arthropathy Arthritis pain Arthropathy, unspecified, site unspecified Chronic nonmalignant pain Opioid use agreement exists Encounters for other specified administrative purpose documented in this encounter [facility] note* Diagnosis Dyspnea on exertion Other dyspnea [...] for palliative care [facility] Diagnosis Tendinitis, de Quervain's- Primary Radial styloid tenosynovitis [facility]* Diagnosis Dysphagia, unspecified type Hoarseness Dysphonia LPRD (laryngopharyngeal reflux disease) Other diseases of larynx [facility]* Diagnosis Encounter for palliative care- Primary Muscle cramps Cramp of limb Nodular sclerosing Hodgkin's lymphoma, unspecified body region (HCC) Opioid use agreement exists Encounters for other specified administrative purpose Chronic nonmalignant pain 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) Psoriatic arthritis (HCC) Psoriatic arthropathy [facility] Diagnosis Muscle cramps Cramp of limb Nodular sclerosis classical Hodgkin lymphoma (HCC) Hodgkin's disease, nodular sclerosis, unspecified site, extranodal and solid organ sites [facility]* Diagnosis Muscle cramps Cramp of limb Nodular sclerosing Hodgkin's lymphoma, 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 Cancer related pain Neoplasm related pain (acute) (chronic) Encounter for palliative care [facility] Diagnosis Polyarthralgia- Primary Pain in joint, multiple sites Psoriasis Other psoriasis Polyarthralgia Pain in joint, multiple sites [facility] Diagnosis Polyarthralgia Pain in joint, multiple sites [facility] Diagnosis Pulmonary hypertension (HCC)- Primary Other chronic pulmonary heart diseases [facility] Diagnosis Encounter for palliative care- Primary 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 Cancer related pain Neoplasm related pain (acute) (chronic) Chronic pain syndrome documented in this encounter [facility] note* Diagnosis 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) [facility]* Diagnosis 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 documented in this encounter [facility] note* Diagnosis Nodular sclerosing Hodgkin's lymphoma, unspecified body region (HCC) [facility]* Diagnosis 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 Other pulmonary embolism without acute cor pulmonale, unspecified chronicity (HCC) Chemotherapy-induced neuropathy (HCC) Polyneuropathy due to drugs documented in this encounter [facility] note* Diagnosis Nodular sclerosing Hodgkin's lymphoma, unspecified body region (HCC) documented in this encounter [facility] note* Diagnosis Nodular sclerosing Hodgkin's lymphoma, 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) documented in this encounter [facility] note* Diagnosis Palliative care by specialist- Primary 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 Opioid use agreement exists Encounters for other specified administrative purpose Chronic pain syndrome documented in this encounter [facility] note* Diagnosis Hodgkin lymphoma, unspecified Hodgkin lymphoma type, unspecified body region (HCC) 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) Drug toxicity Nonspecific abnormal toxicological findings Malaise and fatigue Other malaise and fatigue [facility]* Diagnosis Hodgkin lymphoma, unspecified Hodgkin lymphoma type, unspecified body region (HCC) documented in this encounter [facility] note* Diagnosis Pneumonia due to infectious organism, unspecified laterality, unspecified part of lung- Primary Bronchiectasis without complication (HCC) Bronchiectasis without acute exacerbation Restrictive lung disease Other diseases of lung, not elsewhere classified Oropharyngeal dysphagia Dysphagia, oropharyngeal phase Voice impairment Voice and resonance disorder, unspecified Pneumonia due to infectious organism, unspecified laterality, unspecified part of lung [facility]* Diagnosis Pneumonia of right upper lobe due to Streptococcus pneumoniae ([facility]/HCC)- Primary Recurrent sinus infections Unspecified sinusitis (chronic) documented in this encounter [facility]* Diagnosis Pneumonia due to infectious organism, unspecified laterality, unspecified part of lung [facility]* Diagnosis Multiple subsegmental pulmonary emboli without acute cor pulmonale (CMS/HCC)- Primary documented in this encounter [facility]* Diagnosis Major depressive disorder, single episode, mild (HCC) (CMS/HCC)- Primary Major depressive disorder, single episode, mild Anxiety Anxiety state, unspecified Primary insomnia Persistent disorder of initiating or maintaining sleep Restrictive lung disease Other diseases of lung, not elsewhere classified Mild intermittent asthma, unspecified whether complicated (CMS/[facility]) Acquired hypothyroidism (CMS/HCC) Unspecified hypothyroidism Nodular sclerosing Hodgkin's lymphoma, unspecified body region (CMS/[facility]) Neuropathy Mononeuritis of unspecified site Daily headache documented in this encounter [facility]* Diagnosis Chronic rhinitis- Primary Recurrent sinus infections Unspecified sinusitis (chronic) documented in this encounter [facility]* Diagnosis Muscle cramps Cramp of limb Nodular sclerosing Hodgkin's lymphoma, unspecified body region (HCC) [facility]* Diagnosis 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) [facility]* Diagnosis 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) Opioid use agreement exists Encounters for other specified administrative purpose Chronic pain syndrome Palliative care by specialist [facility]* Diagnosis Acute hypoxic respiratory failure (HCC)- Primary Pneumonia due to infectious organism, unspecified laterality, unspecified part of lung Restrictive lung disease Other diseases of lung, not elsewhere classified Bronchiectasis without complication (HCC) Bronchiectasis without acute exacerbation [facility]* Diagnosis Acute hypoxic respiratory failure (HCC)- Primary Bronchiectasis without complication (HCC) Bronchiectasis without acute exacerbation Restrictive lung disease Other diseases of lung, not elsewhere classified [facility]* Diagnosis Primary insomnia Persistent disorder of initiating or maintaining sleep documented in this encounter [facility]* Diagnosis 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) Anxiety and depression Dysthymic disorder [facility]* Diagnosis Palliative care by specialist- Primary Chronic pain syndrome Opioid use agreement exists Encounters for other specified administrative purpose 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 [facility]* Diagnosis Other acute pulmonary embolism, unspecified whether acute cor pulmonale present (HCC)- Primary Pleural effusion, left Unspecified pleural effusion Pulmonary hypertension (HCC) Other chronic pulmonary heart diseases [facility]* Diagnosis Pleural effusion, left Unspecified pleural effusion [facility]* Diagnosis Bronchiectasis without complication (HCC)- Primary Bronchiectasis without acute exacerbation [facility]* Diagnosis Hypoxia- Primary Hypoxemia [facility]* Diagnosis Other secondary pulmonary hypertension (HCC)- Primary [facility]* Diagnosis Restrictive lung disease- Primary Other [...] pulmonary heart diseases [facility]* Diagnosis Muscle cramps Cramp of limb Nodular sclerosing Hodgkin's lymphoma, unspecified body region (HCC) [facility]* Diagnosis 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) Opioid use agreement exists Encounters for other specified administrative purpose Chronic pain syndrome Palliative care by specialist [facility]* Diagnosis Acute hypoxic respiratory failure (HCC) Bronchiectasis without complication (HCC) Bronchiectasis without acute exacerbation Restrictive lung disease Other diseases of lung, not elsewhere classified [facility]* Diagnosis Acute hypoxic respiratory failure (HCC) [facility]* Diagnosis Other secondary pulmonary hypertension (HCC) [facility]* Diagnosis Pulmonary hypertension (HCC)- Primary Other chronic pulmonary heart diseases Bronchiectasis without complication (HCC) Bronchiectasis without acute exacerbation Restrictive lung disease Other diseases of lung, not elsewhere classified 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) Other pulmonary embolism and infarction Moderate mitral regurgitation Mitral valve disorders [facility]* Diagnosis Pneumonia due to infectious organism, unspecified laterality, unspecified part of lung- Primary Acute respiratory failure, unspecified whether with hypoxia or hypercapnia ([facility]) Restrictive lung disease Other diseases of lung, not elsewhere classified documented in this encounter [facility]* Diagnosis Anxiety Anxiety state, unspecified documented in this encounter [facility]* Diagnosis Anxiety Anxiety state, unspecified documented in this encounter [facility]* Diagnosis Anxiety Anxiety state, unspecified documented in this encounter [facility]* Diagnosis 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) Opioid use agreement exists Encounters for other specified administrative purpose Chronic pain syndrome Palliative care by specialist Pulmonary HTN ([facility]) Other chronic pulmonary heart diseases [facility] Diagnosis Pneumonia of right upper lobe due to Streptococcus pneumoniae ([facility])- Primary Recurrent sinus infections Unspecified sinusitis (chronic) documented in this encounter [facility]* Diagnosis Palliative care by specialist- Primary Nodular sclerosis Hodgkin lymphoma of intrathoracic lymph nodes ([facility]) Opioid use agreement exists Encounters for other specified administrative purpose Chronic pain syndrome Muscle cramps Cramp of limb Pulmonary hypertension (HCC) Other chronic pulmonary heart diseases Pulmonary HTN (HCC) Other chronic pulmonary heart diseases [facility] Diagnosis 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) Opioid use agreement exists Encounters for other specified administrative purpose Chronic pain syndrome Palliative care by specialist Pulmonary HTN ([facility]) Other chronic pulmonary heart diseases [facility]* Diagnosis Asthma, unspecified asthma severity, unspecified whether complicated, unspecified whether persistent ([facility])- Primary Restrictive lung disease Other diseases of lung, not elsewhere classified Major depressive disorder, single episode, mild (HCC) ([facility]) Major depressive disorder, single episode, mild Anxiety Anxiety state, unspecified Primary insomnia Persistent disorder of initiating or maintaining sleep Neuropathy Mononeuritis of unspecified site Pulmonary hypertension (CMS/HCC) Other chronic pulmonary heart diseases Nodular sclerosis Hodgkin lymphoma, unspecified site ([facility]) documented in this encounter [facility]* Diagnosis Nerve pain Unspecified neuralgia, neuritis, and radiculitis documented in this encounter [facility]* Diagnosis 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 [facility]* Diagnosis Muscle cramps Cramp of limb Nodular sclerosing Hodgkin's lymphoma, unspecified body region (HCC) [facility]* Diagnosis Pneumonia of right upper lobe due to Streptococcus pneumoniae (CMS/HCC)- Primary Chronic rhinitis documented in this encounter [facility]* Diagnosis Dermatitis- Primary Contact dermatitis and other eczema, due to unspecified cause documented in this encounter [facility]* Diagnosis Palliative care by specialist- Primary Chronic pain syndrome 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) Opioid use agreement exists Encounters for other specified administrative purpose Chemotherapy-induced neuropathy (HCC) Polyneuropathy due to drugs Headaches Adjustment disorder with anxious mood Adjustment disorder with anxiety [facility] Diagnosis Subacute cough Cough [facility] Diagnosis 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 Restrictive lung disease Other diseases of lung, not elsewhere classified Subacute cough Cough Subacute cough Cough [facility] Diagnosis Pleural effusion- Primary Unspecified pleural effusion [facility] Diagnosis Pleural effusion Unspecified pleural effusion [facility]* Diagnosis Anxiety Anxiety state, unspecified documented in this encounter [facility]* Diagnosis Pleural effusion- Primary Unspecified pleural effusion Bronchiectasis without complication (HCC) Bronchiectasis without acute exacerbation Restrictive lung disease Other diseases of lung, not elsewhere classified Chronic respiratory failure with hypoxia (HCC) Chronic respiratory failure Pulmonary hypertension (HCC) Other chronic pulmonary heart diseases [facility]* Diagnosis BRIAN (obstructive sleep apnea)- Primary Obstructive sleep apnea (adult) (pediatric) [facility]* Diagnosis Asthma, unspecified asthma severity, unspecified whether complicated, unspecified whether persistent (CMS/[facility])- Primary documented in this encounter [facility]* Diagnosis Asthma, unspecified asthma severity, unspecified [...] tissues of limb documented in this encounter [facility]* Diagnosis Simple chronic bronchitis (HCC)- Primary Simple chronic bronchitis Bronchiectasis without complication (HCC) Bronchiectasis without acute exacerbation Chronic respiratory failure with hypoxia (HCC) Chronic respiratory failure [facility]* Diagnosis Primary insomnia Persistent disorder of initiating or maintaining sleep documented in this encounter [facility]* Diagnosis Anxiety Anxiety state, unspecified Major depressive disorder, single episode, mild (HCC) (CMS/HCC) Major depressive disorder, single episode, mild Neuropathy Mononeuritis of unspecified site documented in this encounter [facility]* Diagnosis 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) Opioid use agreement exists Encounters for other specified administrative purpose Chronic pain syndrome Palliative care by specialist [facility] Diagnosis Palliative care by specialist- Primary Opioid use agreement exists Encounters for other specified administrative purpose 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) Chronic pain syndrome 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 NSTEMI (non-ST elevated myocardial infarction) (HCC) Acute myocardial infarction, subendocardial infarction, episode of care unspecified 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 [facility]* Diagnosis NSTEMI (non-ST elevated myocardial infarction) (CMS/HCC)- Primary Acute myocardial infarction, subendocardial infarction, episode of care unspecified Acute systolic heart failure (CMS/HCC) Acute systolic heart failure Mixed hyperlipidemia (CMS/HCC) Mixed hyperlipidemia Inappropriate sinus tachycardia (CMS/HCC) Hx of pulmonary embolus documented in this encounter [facility]* Diagnosis 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 Restrictive lung disease Other diseases of lung, not elsewhere classified Heart disease Heart disease, unspecified [facility]* Diagnosis Dermatitis Contact dermatitis and other eczema, due to unspecified cause documented in this encounter [facility]* Diagnosis Symptomatic states associated with artificial menopause- Primary Well woman exam with routine gynecological exam Routine gynecological examination Breast cancer screening by mammogram Hormone disorder Unspecified endocrine disorder Folliculitis Other specified disease of hair and hair follicles Dyspareunia, female Vaginal dryness, menopausal documented in this encounter [facility]* Diagnosis Anxiety Anxiety state, unspecified documented in this encounter [facility]* Diagnosis Nausea Nausea alone [facility] [facility] Diagnosis Hormone disorder- Primary Unspecified endocrine disorder Symptomatic states associated with artificial menopause documented in this encounter [facility] HealthcareEvaluation [facility]* Diagnosis Herpes zoster without complication- Primary documented in this encounter [facility] Healthcare[facility] note* Diagnosis Hx of pulmonary embolus- Primary [facility] Diagnosis 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) Opioid use agreement exists Encounters for other specified administrative purpose Chronic pain syndrome Palliative care by specialist [facility] Diagnosis Gastroesophageal reflux disease, unspecified whether esophagitis present [facility] Palliative care by specialist- Primary Chronic pain syndrome Opioid use agreement exists Encounters for other specified administrative purpose 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) NSTEMI (non-ST elevated myocardial infarction) (HCC) Acute myocardial infarction, subendocardial infarction, episode of care unspecified 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 [facility] encounter [facility]* Diagnosis Bronchiectasis without complication (HCC)- Primary Bronchiectasis without acute exacerbation [facility]* Diagnosis 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 [facility] [employer] Other History general Narrative - Reported* Type Description Date Medical History Hodgkin lymphoma of lymph nodes of neck, unspecified Hodgkin lymphoma type Medical History Hypothyroid Medical History Tachycardia Medical History Neuropathy Medical History Pulmonary embolism Medical History 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 Surgical History biopsy Hospitalization History she has had several stay s for her dx [facility] (narrative)* Diagnostic Procedure Only (Routine) - Authorized Specialty Diagnoses / Procedures Referred By Heidi george Referred To Contact [facility]LECULAR & FUNCTIONAL IMAGING Diagnoses Hodgkin lymphoma, unspecified Hodgkin lymphoma type, unspecified body region (HCC) 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) Procedures NM PET/CT SKULL-THIGH SUBSEQUENT PET IMAGING CT ATTENUATION [place] [address] [place] [address] Molecular & Functional Imaging [address] [place] [address] Referral ID Status Reason Start Date Expiration Date Visits Requested Visits Authorized [id number] Authorized Auto-Generat ed Referral 06/14/2021 07/14/2022 1 1 [facility] for referral (narrative)* Diagnostic Procedure Only (Routine) - Authorized Specialty Diagnoses / Procedures Referred By Heidi george Referred To Contact [facility]LECULAR & FUNCTIONAL IMAGING Diagnoses Nodular sclerosing Hodgkin's lymphoma, unspecified body region (HCC) Procedures NM PET/CT SKULL-THIGH SUBSEQUENT PET IMAGING CT ATTENUATION [place] [address] [place] [id number] Molecular [facility] Functional Imaging [address] [place] [address] Referral ID Status Reason Start Date Expiration Date Visits Requested Visits Authorized [id number] Authorized Auto-Generat ed Referral 11/15/2021 12/15/2022 1 1 T [facility] for referral (narrative)* Outpatient Procedure (Routine) - Pending Review Specialty Diagnoses / Procedures Referred By Heidi george Referred To [facility] Diagnoses Nodular sclerosing Hodgkin's lymphoma, unspecified body region (HCC) BAEZ (dyspnea on exertion) Chronic cough Procedures ECHO ECHO TTHRC R-T 2D W/WOM-MODE COMPL SPEC&COLR D Sylvia Mancilla APRN.CNP [address] [place] [address] [facility] [address] [place] [address] Referral ID Status Reason Start Date Expiration Date Visits Requested Visits Authorized [id number] Pending Review Auto-Generat ed Referral 12/27/2021 12/27/2022 1 1 [facility] for referral (narrative)* Diagnostic Procedure Only (Routine) - Pending Review Specialty Diagnoses / Procedures Referred By Contac t Referred To Contact MOLECULAR & FUNCTIONAL IMAGING Diagnoses Nodular sclerosing Hodgkin's lymphoma, unspecified body region (HCC) Procedures NM PET/CT SKULL-THIGH SUBSEQUENT PET IMAGING CT ATTENUATION [place] [address] [place] [address] [facility] [address] [place] [address] Referral ID Status Reason Start Date Expiration Date Visits Requested Visits Authorized [id number] Pending Review Auto-Generat ed Referral 07/18/2022 08/17/2023 1 1 [facility] for referral (narrative)* Outpatient Procedure (Routine) - Authorized Specialty Diagnoses / Procedures Referred By Contac t Referred To Contact [facility] Diagnoses Bronchitis Procedures NITRIC OXIDE, EXHALED NITRIC OXIDE GAS DETERMINATION Don Chan APRN.CNP [address] [place] [address] [facility] [address] [place] [address] Referral ID Status Reason Start Date Expiration Date Visits Requested Visits Authorized [id number] Authorized Auto-Generat ed Referral 08/02/2022 09/01/2023 1 1 * Outpatient Procedure (Routine) - Authorized Specialty Diagnoses / Procedures Referred By Contac t Referred To [facility] Diagnoses Chronic cough Procedures LUNG DIFFUSION CAPACITY (DLCO) DIFFUSING CAPACITY Don Chan APRN.FORM [facility] [address] [place] [address] [facility] [place] [id number] Referral ID Status Reason Start Date Expiration Date Visits Requested Visits Authorized [id number] Authorized Auto-Generat ed Referral 08/02/2022 09/01/2023 1 1 * Outpatient Procedure (Routine) - Authorized Specialty Diagnoses / Procedures Referred By Contac t Referred To Contact [facility] Diagnoses Chronic cough Procedures SPIROMETRY - BASELINE AND POST DILATOR BRNCDILAT RSPSE SPMTRY PRE&POST-BRNCDILAT ADMN Don Chan APRN.CNP [address] [place] [address] [place] [address] Referral ID Status Reason Start Date Expiration Date Visits Requested Visits Authorized [id number] Authorized Auto-Generat ed Referral 08/02/2022 09/01/2023 1 1 [facility] for referral (narrative)* Diagnostic Procedure Only (Routine) - Pending Review Specialty Diagnoses / Procedures Referred By Contac t Referred To Contact [facility] 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 Ref[facility] To Contact [facility] Diagnoses 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) Procedures NM PET/CT SKULL-THIGH SUBSEQUENT PET IMAGING CT ATTENUATION SKULL BASE MID-THIGH Ruperto Ledezma MD [address] [place] [address] [address] [place] [address] [facility] [address] [place] [address] Referral ID Status Reason Start Date Expiration Date Visits Requested Visits Authorized [id number] Authorized Auto-Generat ed Referral 01/31/2024 1 1 [facility] for referral (narrative)* Diagnostic Procedure Only (Routine) - Pending Review Specialty Diagnoses / Procedures [facility] Referred To Contact XR [facility]AG[facility] Diagnoses Dysphagia, unspecified type Gastroesophageal reflux disease, unspecified whether esophagitis present Procedures XR ESOPHAGRAM RADIOLOGIC EXAM ESOPHAGUS SINGLE CONTRAST STUDY Anil Franco PA-C [address] [place] [address] X[facility] Referral ID Status Reason Start Date Expiration Date Visits Requested Visits Authorized [id number] Pending Review Auto-Generat ed Referral 05/22/2023 06/20/2024 1 1 * Diagnostic Procedure Only (Routine) - Authorized Specialty Diagnoses / Procedures Referred By [facility] Referred To Contact XR IMAGING Diagnoses Dysphagia, unspecified type Procedures XR MODIFIED BARIUM SWALLOW W SPEECH THERAPY RADIOLOGIC EXAM SWALLOW FUNCTION CONTRAST STUDY Anil Franco PA-C [address] [place] [phone] [facility] Referral ID Status Reason Start Date Expiration Date Visits Requested Visits Authorized [id number] Authorized Auto-Generat ed Referral 05/22/2023 06/20/2024 1 1 [facility] for referral (narrative)* Diagnostic Procedure Only (Routine) - Closed Specialty Diagnoses / Procedures Referred By Contac t Referred To Contact XR IMAGING Diagnoses Dysphagia, unspecified type Procedures XR MODIFIED BARIUM SWALLOW W SPEECH THERAPY RADIOLOGIC EXAM SWALLOW FUNCTION CONTRAST STUDY Anil Franco PA-C [address] [place] [address] [place] [address] Referral ID Status Reason Start Date Expiration Date V isits Requested Visits Authorized [id number] Closed Auto-Generate d Referral 05/22/2023 06/20/2024 1 1 [facility] for referral (narrative)* Diagnostic Procedure Only (Routine) - Closed Specialty Diagnoses / Procedures Referred By Contac t Referred To Contact XR IMAGING Diagnoses Dysphagia, unspecified type Gastroesophageal reflux disease, unspecified whether esophagitis present Procedures XR ESOPHAGRAM RADIOLOGIC EXAM ESOPHAGUS SINGLE CONTRAST STUDY Anil Franco PA-C [address] [place] [phone] [place] [address] Referral ID Status Reason Start Date Expiration Date V isits Requested Visits Authorized [id number] Closed Auto-Generate d Referral 05/22/2023 06/20/2024 1 1 [facility] for referral (narrative)* Diagnostic Procedure Only (Routine) - Pending Review Specialty Diagnoses / Procedures Referred By Contac t Referred To Contact XR IMAGING Diagnoses Pain Procedures XR WRIST GENERAL 3V PA/LAT/OBL RIGHT RADEX WRIST COMPLETE MINIMUM 3 VIEWS Sherly Hansen PA-C [address] [place] [address] [place] [address] Referral ID Status Reason Start Date Expiration Date Visits Requested Visits Authorized [id number] Pending Review Auto-Generat ed Referral 07/31/2023 08/28/2024 1 1 [facility] for referral (narrative)* Outpatient Procedure (Routine) - Authorized Specialty Diagnoses / Procedures Referred By Contac t Referred To [facility] Diagnoses Pulmonary hypertension (HCC) Procedures OXIMETRY WITH AMBULATION NONINVASIVE EAR/PULSE OXIMETRY Carole Morales APRN.CNP [address] [place] [address] [facility] [address] [place], [place] [id number] Referral ID Status Reason Start Date Expiration Date Visits Requested Visits Authorized [id number] Authorized Auto-Generat ed Referral 08/06/2023 09/04/2024 1 1 [facility] for referral (narrative)* Diagnostic Procedure Only (Routine) - Closed Specialty Diagnoses / Procedures Referred By Contac t Referred To Contact XR IMAGING Diagnoses Polyarthralgia Procedures XR FOOT GENERAL 3V AP/LAT/OBL BILATERAL RADEX FOOT COMPLETE MINIMUM 3 VIEWS Simin Brandt MD [address] [place] [phone] [facility] Referral ID Status Reason Start Date Expiration Date V isits Requested Visits Authorized [id number] Closed Auto-Generate d Referral 10/09/2023 11/07/2024 1 1 * Diagnostic Procedure Only (Routine) - Closed Specialty Diagnoses / Procedures Referred By Contac t Referred To Contact XR IMAGING Diagnoses Polyarthralgia Procedures XR HAND GENERAL 3V PA/LAT/OBL BILATERAL RADEX HAND MINIMUM 3 VIEWS Simin Brandt MD [address] [place] [phone] [facility] Referral ID Status Reason Start Date Expiration Date V isits Requested Visits Authorized [id number] Closed Auto-Generate d Referral 10/09/2023 11/07/2024 1 1 * Diagnostic Procedure Only (Routine) - Closed Specialty Diagnoses / Procedures Referred By Contac t Referred To Contact XR IMAGING Diagnoses Polyarthralgia Procedures XR KNEE GENERAL 4V AP BOTH/PA BOTH/LAT/MERC BILATERAL RADIOLOGIC EXAM KNEE COMPLETE 4/MORE VIEWS Simin Brandt MD [address] [place] [address] [facility] [place] [facility] Referral ID Status Reason Start Date Expiration Date V isits Requested Visits Authorized [id number] Closed Auto-Generate d Referral 10/09/2023 11/07/2024 1 1 * Diagnostic Procedure Only (Routine) - Closed Specialty Diagnoses / Procedures Referred By Contac t Referred To Contact XR IMAGING Diagnoses Polyarthralgia Procedures XR SACROILIAC JOINTS 2V AP PELVIS/FERGUESON RADIOLOGIC EXAMINATION SACROILIAC JNTS <3 VIEWS Simin Brandt MD [address] [place] [address] X[facility] Imaging [place] [address] Referral ID Status Reason Start Date Expiration Date V isits Requested Visits Authorized [id number] Closed Auto-Generate d Referral 10/09/2023 11/07/2024 1 1 [facility] for referral (narrative)* Diagnostic Procedure Only (Routine) - Closed Specialty Diagnoses / Procedures Referred By Contac t Referred To Contact XR IMAGING Diagnoses Polyarthralgia Procedures XR FOOT GENERAL 3V AP/LAT/OBL BILATERAL RADEX FOOT COMPLETE MINIMUM 3 VIEWS Simin Brandt MD [address] [place] [address] [place] [address] Referral ID Status Reason Start Date Expiration Date V isits Requested Visits Authorized [id number] Closed Auto-Generate d Referral 10/09/2023 11/07/2024 1 1 * Diagnostic Procedure Only (Routine) - Closed Specialty Diagnoses / Procedures Referred By Contac t Referred To Contact XR IMAGING Diagnoses Polyarthralgia Procedures XR HAND GENERAL 3V PA/LAT/OBL BILATERAL RADEX HAND MINIMUM 3 VIEWS Simin Brandt MD [address] [place] [phone] [facility] Referral ID Status Reason Start Date Expiration Date V isits Requested Visits Authorized [id number] Closed Auto-Generate d Referral 10/09/2023 11/07/2024 1 1 * Diagnostic Procedure Only (Routine) - Closed Specialty Diagnoses / Procedures Referred By Contac t Referred To Contact XR IMAGING Diagnoses Polyarthralgia Procedures XR KNEE GENERAL 4V AP BOTH/PA BOTH/LAT/MERC BILATERAL RADIOLOGIC EXAM KNEE COMPLETE 4/MORE VIEWS Simin Brandt MD [address] [place] [address] X[facility] Imaging [facility] Referral ID Status Reason Start Date Expiration Date V isits Requested Visits Authorized [id number] Closed Auto-Generate d Referral 10/09/2023 11/07/2024 1 1 * Diagnostic Procedure Only (Routine) - Closed Specialty Diagnoses / Procedures Referred By Heidi t Referred To Contact XR IMAGING Diagnoses Polyarthralgia Procedures XR SACROILIAC JOINTS 2V AP PELVIS/FERGUESON RADIOLOGIC EXAMINATION SACROILIAC JNTS <3 VIEWS Simin Brandt MD [address] [place] [phone] X[facility] Referral ID Status Reason Start Date Expiration Date V isits Requested Visits Authorized [id number] Closed Auto-Generate d Referral 10/09/2023 11/07/2024 1 1 [facility] for referral (narrative)* Diagnostic Procedure Only (Routine) - Closed Specialty Diagnoses / Procedures Referred By Heidi t Referred To Contact [facility]LECULAR [facility] FUNCTIONAL IMAGING 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) Procedures NM PET/CT SKULL-THIGH SUBSEQUENT PET IMAGING CT ATTENUATION SK[place] [address] [place] [address] [facility] [address] [place] [address] Referral ID Status Reason Start Date Expiration Date V isits Requested Visits Authorized [id number] Closed Auto-Generate d Referral 08/22/2022 09/21/2023 1 1 [facility] for referral (narrative)* Diagnostic Procedure Only (Routine) - Closed Specialty Diagnoses / Procedures Referred By Contac t Referred To Contact [facility] FUNCTIONAL [facility]AGING Diagnoses 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) Procedures NM PET/CT SKULL-THIGH SUBSEQUENT PET IMAGING CT ATTENUATION SKULL BASE MID-THIGH Ruperto Ledezma MD [address] [place] [address] [place] [address] Molecular [facility] Functional Imaging [address] [place] [address] Referral ID Status Reason Start Date Expiration Date V isits Requested Visits Authorized [id number] Closed Auto-Generate d Referral 01/01/2023 01/31/2024 1 1 [facility] for referral (narrative)* Diagnostic Procedure Only (Routine) - Closed Specialty Diagnoses / Procedures Referred By Contac t Referred To Contact [facility]LECULAR [facility] FUNCTIONAL IMAGING Diagnoses Nodular sclerosing Hodgkin's lymphoma, unspecified body region (HCC) Procedures NM PET/CT SKULL-THIGH SUBSEQUENT PET IMAGING CT ATTENUATION [place] [address] [place] [phone] [facility] [address] [place] [address] Referral ID Status Reason Start Date Expiration Date V isits Requested Visits Authorized [id number] Closed Auto-Generate d Referral 07/25/2022 01/21/2023 1 1 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) Procedures NM PET/CT SKULL-THIGH SUBSEQUENT PET IMAGING CT ATTENUATION SKULL BASE MID-THIGH Ellyn Lopez APRN.CNP [address] [place] [address] [address] [place] [address] [facility] [address] [place] [address] Referral ID Status Reason Start Date Expiration Date Visits Requested Visits Authorized [id number] New Request Auto-Generat ed Referral 11/11/2023 12/10/2024 1 1 [facility] for referral (narrative)* Diagnostic Procedure Only (Routine) - Closed Specialty Diagnoses / Procedures Referred By Contac t Referred To Contact [facility] Diagnoses Nodular sclerosing Hodgkin's lymphoma, unspecified body region (HCC) Procedures NM PET/CT SKULL-THIGH SUBSEQUENT PET IMAGING CT ATTENUATION SK[place] [address] [place] [address] [facility] [address] [place] [address] Referral ID Status Reason Start Date Expiration Date V isits Requested Visits Authorized [id number] Closed Auto-Generate d Referral 11/15/2021 12/15/2022 1 1 [facility] for referral (narrative)* Diagnostic Procedure Only (Routine) - Closed Specialty Diagnoses / Procedures Referred By Contac t Referred To Contact [facility] Diagnoses Nodular sclerosing Hodgkin's lymphoma, 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) Procedures NM PET/CT SKULL-THIGH SUBSEQUENT PET IMAGING CT ATTENUATION [place] [address] [place] [phone] [facility] [address] [place] [id number] Referral ID Status Reason Start Date Expiration Date V isits Requested Visits Authorized [id number] Closed Auto-Generate d Referral 08/16/2021 09/15/2022 1 1 [facility] for referral (narrative)* Diagnostic Procedure Only (Routine) - Closed Specialty Diagnoses / Procedures Referred By Contac t Referred To Contact [facility] Diagnoses Hodgkin lymphoma, unspecified Hodgkin lymphoma type, unspecified body region (HCC) 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) Procedures NM PET/CT SKULL-THIGH SUBSEQUENT PET IMAGING CT ATTENUATION [place] [address] [address] [place] [phone] [facility] [address] [place] [address] Referral ID Status Reason Start Date Expiration Date V isits Requested Visits Authorized [id number] Closed Auto-Generate d Referral 06/14/2021 07/14/2022 1 1 [facility] for referral (narrative)* Diagnostic Procedure Only (Routine) - Closed Specialty Diagnoses / Procedures Referred By Contac t Referred To Contact [facility] FUN[facility]AL [facility]AG[facility] Diagnoses Hodgkin lymphoma, unspecified Hodgkin lymphoma type, unspecified body region (HCC) Procedures NM PET/CT SKULL-THIGH SUBSEQUENT TUMOR IMAGING PET W/CONC CT SKULL-THIGH Sylvia Mancilla APRN.CNP [address] [place] [address] Molecular [facility] [address] [place] [address] Referral ID Status Reason Start Date Expiration Date V isits Requested Visits Authorized [id number] Closed Auto-Generate d Referral 01/25/2021 02/24/2022 1 1 [facility] for referral (narrative)* Outpatient Procedure (Routine) - New Request Specialty Diagnoses / Procedures Referred By Contac t Referred To [facility] [place] Diagnoses Acute hypoxic respiratory failure (HCC) Bronchiectasis without complication (HCC) Restrictive lung disease Procedures SIX MINUTE WALK CARDIOPULMONARY EXERCISE STRESS 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 APRN.FORM RAISER [address] [place] [address] [address] Referral ID Status Reason Start Date Expiration Date Visits Requested Visits Authorized [id number] New Request Auto-Generat ed Referral 12/25/2023 01/23/2025 1 1 * Outpatient Procedure (Routine) - New Request Specialty Diagnoses / Procedures [facility] Diagnoses Acute hypoxic respiratory failure (HCC) Bronchiectasis without complication (HCC) Restrictive lung disease Procedures LUNG DIFFUSION CAPACITY (DLCO) DIFFUSING CAPACITY 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 APRN.FORM RAISER [address] [place] [address] [address] Referral ID Status Reason Start Date Expiration Date Visits Requested Visits Authorized [id number] New Request Auto-Generat ed Referral 12/25/2023 01/23/2025 1 1 * Outpatient Procedure (Routine) - New Request Specialty Diagnoses / Procedures [facility] Diagnoses Acute hypoxic respiratory failure (HCC) Bronchiectasis without complication (HCC) Restrictive lung disease Procedures SPIROMETRY WITH DILATOR IF OBSTRUCTED BRNCDILAT RSPSE SPMTRY PRE&POST-BRNCDILAT ADMN 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 APRN.FORM RAISER [address] [place] [address] [address] Referral ID Status Reason Start Date Expiration Date Visits Requested Visits Authorized [id number] New Request Auto-Generat ed Referral 12/25/2023 01/23/2025 1 1 [facility] for referral (narrative)* Outpatient Procedure (Routine) - Authorized Specialty Diagnoses / Procedures Referred By Contac t Referred To Contact [facility] Diagnoses Pleural effusion, left Pulmonary hypertension (HCC) Other acute pulmonary embolism, unspecified whether acute cor pulmonale present (HCC) Procedures ECHO ECHO TTHRC R-T 2D W/WOM-MODE COMPL SPEC&[place] [address] [place] [address] [facility] [address] [place] [address] Referral ID Status Reason Start Date Expiration Date Visits Requested Visits Authorized [id number] Authorized Auto-Generat ed Referral 4 01/02/2025 1 1 [facility] for referral (narrative)* Diagnostic Procedure Only (Routine) - New Request Specialty Diagnoses / Procedures [facility] Referred To Contact [facility] FUNCTIONAL [facility]AGING Diagnoses Other secondary pulmonary hypertension (HCC) Procedures NM LUNG VENT / PERF VQ PULMONARY VENTILATION & PERFUSION IMAGING Sheela Chino APRN.ICE HANDLER [address] [id number] Molecular & Functional Imaging [address] [place], [place] [address] Referral ID Status Reason Start Date Expiration Date Visits Requested Visits Authorized [id number] New Request Auto-Generat ed Referral 4 02/04/2025 1 1 [facility] [place] for referral (narrative)* Diagnostic Procedure Only (Routine) - Closed Specialty Diagnoses / Procedures Referred By Contac t Referred To Contact MOLECULAR & FUNCTIONAL IMAGING Diagnoses Other secondary pulmonary hypertension (HCC) Procedures NM LUNG VENT / PERF VQ PULMONARY VENTILATION & PERFUSION IMAGING Sheela Chino APRN.ICE HANDLER [address] [address] Molecular & Functional Imaging [address] [place] [address] Referral ID Status Reason Start Date Expiration Date V isits Requested Visits Authorized [id number] Closed Auto-Generate d Referral 01/06/2024 02/04/2025 1 1 [facility] [place] for referral (narrative)* Consultation (Routine) - Pending Review Specialty Diagnoses / Procedures Referred By Heidi george Referred To Contact Immunology Diagnoses Pneumonia due to infectious organism, unspecified laterality, unspecified part of lung Acute respiratory failure, unspecified whether with hypoxia or hypercapnia (CMS/HCC) Restrictive lung disease Procedures [place] OFFICE/OUTPATIENT [facility] 60 MINUTES Sheila Lin, END FINDER FORMING DEPARTMENT [address] [place] [address] Referral ID Status Reason Start Date Expiration Date Visits Requested Visits Authorized [id number] Pending Review Specialty Services Required 11/06/2023 05/04/2024 [address] Watson Zavala [facility] for visit Narrative* Diagnostic Procedure Only (Routine) - Closed Specialty Diagnoses / Procedures Referred By Heidi george Referred To Contact XR IMAGING Diagnoses Dysphagia, unspecified type Procedures XR MODIFIED BARIUM SWALLOW W SPEECH THERAPY RADIOLOGIC EXAM SWALLOW FUNCTION CONTRAST STUDY Anil Franco PA-C [address] [place] [address] X[address] [address] Referral ID Status Reason Start Date Expiration Date V isits Requested Visits Authorized [id number] Closed Auto-Generate d Referral 05/22/2023 06/20/2024 1 1 [facility] for visit Narrative* Diagnostic Procedure Only (Routine) - Closed Specialty Diagnoses / Procedures Referred By Heidi george Referred To Contact XR IMAGING Diagnoses Polyarthralgia Procedures XR FOOT GENERAL 3V AP/LAT/OBL BILATERAL RADEX FOOT COMPLETE MINIMUM 3 VIEWS Simin Brandt MD [address] [place] [address] [place] [address] Referral ID Status Reason Start Date Expiration Date V isits Requested Visits Authorized [id number] Closed Auto-Generate d Referral 10/09/2023 11/07/2024 1 1 [facility] for visit Narrative* Diagnostic Procedure Only (Routine) - Closed Specialty Diagnoses / Procedures Referred By Contac t Referred To Contact US IMAGING Diagnoses Pleural effusion, left Procedures US CHEST EFFUSION SURVEY US CHEST REAL TIME W/IMAGE DOCUMENTATION Carole Ruano, 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FORM RAISER [address] [place] [address] [place] [address] Referral ID Status Reason Start Date Expiration Date V isits Requested Visits Authorized [id number] Closed Auto-Generate d Referral 06/14/2023 07/13/2024 1 1 [facility] for visit Narrative* Diagnostic Procedure Only (Routine) - Closed Specialty Diagnoses / Procedures Referred By Contac t Referred To Contact MOLECULAR & FUNCTIONAL IMAGING Diagnoses Other secondary pulmonary hypertension (HCC) Procedures NM LUNG VENT / PERF VQ PULMONARY VENTILATION & PERFUSION IMAGING Sheela Chino, 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[facility] [address] [facility] [address] [place] [address] Molecular & Functional Imaging [address] [place] [address] Referral ID Status Reason Start Date Expiration Date V isits Requested Visits Authorized [id number] Closed Auto-Generate d Referral 01/06/2024 02/04/2025 1 1 [facility] for visit Narrative* Diagnostic Procedure Only (Routine) - Closed Specialty Diagnoses / Procedures Referred By Contac t Referred To Contact US IMAGING Diagnoses Pleural effusion Procedures US CHEST EFFUSION SURVEY US CHEST REAL TIME W/[place] [address] [place] [address] Phone: tel: fax: [place] [address] Referral ID Status Reason Start Date Expiration Date V isits Requested Visits Authorized [id number] Closed Auto-Generate d Referral 05/07/2024 06/06/2025 1 1 [facility] Summary Purpose Family History No Family [...] FoundDocuments on File Type Date Recorded Patient Dental Director Expl anation Advance Directive(s) 09/30/2017 12:34 PM Advance Directive(s) 04/16/2016 9:44 PM Advance Directive(s) 01/28/2016 8:20 PM Documents on File Type Date Recorded Patient Dental Director Expl anation Advance Directive(s) 09/30/2017 12:34 PM Advance Directive(s) 04/16/2016 9:44 PM Advance Directive(s) 01/28/2016 8:20 PM Documents on File Type Date Recorded Patient Dental Director Expl anation Advance Directive(s) 09/20/2021 8:56 PM [...] ONCE, 1 dose, On Sat02/14/22 at 1230, 02/14/22 @ 1830 Approx Total Vol Administer [...] Procedures CONSULT TO PULMONARY HYPERTENSION CLINIC OFFICE/OUTPATIENT [facility] 60 [place] [address] [place] [address] Referral ID Status Reason Start Date Expiration Date Visits Requested Visits Authorized [id number] Authorized PCP Requested Referral 01/05/2025 1 1 Specialty Diagnoses / Procedures Referred By Contac t Referred To Contact [facility] Diagnoses Chemotherapy-induced neuropathy (HCC) Anxiety and depression Procedures CONSULT TO [facility] ([facility] PAIN) OFFICE/OUTPATIENT [facility] 60 MINUTES Kodi Pantoja MD [address] [place] [address] Referral ID Status Reason Start Date Expiration Date Visits Requested Visits Authorized [id number] Pending Review PCP Requested Referral 12/26/2023 12/25/2024 1 1 Specialty Diagnoses / Procedures Referred By Contac t Referred To Contact Diagnoses Daily headache Procedures CT head wo IV contrast Sheila Lin, SAMANTHA [address] [place] [address] Referral ID Status Reason Start Date Expiration Date V isits Requested Visits Authorized [id number] Pending Review 11/28/2023 05/26/2024 1 1 Specialty Diagnoses / Procedures Referred By Contac t Referred To Contact CT IMAGING Diagnoses Pneumonia due to infectious organism, unspecified laterality, unspecified part of lung Procedures CT CHEST WO IVCON DIAGNOSTIC COMPUTED TOMOGRAPHY THORAX W/O CNTRST 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, LORY.FORM RAISER [address] [facility] [place] [address] [place] [address] Referral ID Status Reason Start Date Expiration Date Visits Requested Visits Authorized [id number] Authorized Auto-Generat ed Referral 11/21/2023 12/20/2024 1 1 Specialty Diagnoses / Procedures Referred By Contac t Referred To Contact Pain Management Diagnoses Chronic pain syndrome Procedures CONSULT TO PAIN MGT OFFICE/OUTPATIENT [facility] 60 MINUTES Irene Han, 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FORM RAISER [address] [place] [address] Referral ID Status Reason Start Date Expiration Date Visits Requested Visits Authorized [id number] Authorized PCP Requested Referral 10/17/2023 10/16/2024 1 1 Specialty Diagnoses / Procedures Referred By Contac t Referred To Contact Gastroenterology Diagnoses Dysphagia, unspecified type Procedures CONSULT TO GASTROENTEROLOGY OFFICE/OUTPATIENT [facility] 60 MINUTES Anil Franco PA-C [address] [place] [address] Referral ID Status Reason Start Date Expiration Date Visits Requested Visits Authorized [id number] Authorized PCP Requested Referral 09/18/2023 09/17/2024 1 1 Specialty Diagnoses / Procedures Referred By Contac t Referred To Contact [facility] Diagnoses Hoarseness Procedures CONSULT TO SPEECH THERAPY OFFICE/OUTPATIENT [facility] 60 MINUTES Anil Franco PA-C [address] [place] [address] [facility] [address] [place] [address] Referral ID Status Reason Start Date Expiration Date Visits Requested Visits Authorized [id number] Authorized Auto-Generat ed Referral 02/18/2023 02/18/2024 99 99 Specialty Diagnoses / Procedures Referred By Contac t Referred To Contact Cardiology Diagnoses Pleural effusion, left Pulmonary hypertension (HCC) Procedures CONSULT TO CARDIOLOGY OFFICE/OUTPATIENT [facility] 60 MINUTES Carole Ruano, 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FORM RAISER [address] [place] [address] Referral ID Status Reason Start Date Expiration Date Visits Requested Visits Authorized [id number] Authorized PCP Requested Referral 06/14/2023 06/13/2024 1 1 Specialty Diagnoses / Procedures Referred By Contac t Referred To Contact US IMAGING Diagnoses Pleural effusion, left Procedures US CHEST EFFUSION SURVEY US CHEST REAL TIME W/IMAGE DOCUMENTATION Carloe Ruano, 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FORM RAISER [address] [place] [address] [place] [address] Referral ID Status Reason Start Date Expiration Date Visits Requested Visits Authorized [id number] Authorized Auto-Generat ed Referral 06/14/2023 07/13/2024 1 1 Specialty Diagnoses / Procedures Referred By Contac t Referred To Contact Diagnoses Bronchitis Restrictive lung disease Carole Ruano, 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FORM RAISER [address] [place] [address] Referral ID Status Reason Start Date Expiration Date Visits Re quested Visits Authorized [id number] Denied 1 1 Specialty Diagnoses / Procedures Referred By Contac t Referred To Contact Ent - Otolaryngology Diagnoses Dysphagia, unspecified type Hoarseness Procedures CONSULT TO ENT OFFICE/OUTPATIENT [facility] 60 MINUTES 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, 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FORM RAISER [address] [place] [address] Referral ID Status Reason Start Date Expiration Date Visits Requested Visits Authorized [id number] Authorized PCP Requested Referral 03/28/2023 03/27/2024 1 1 Specialty Diagnoses / Procedures Referred By Contac t Referred To Contact CT IMAGING Diagnoses Acute cough Procedures CT CHEST WO IVCON DIAGNOSTIC COMPUTED TOMOGRAPHY THORAX W/[place] [address] [place] [address] Ct Imaging Referral ID Status Reason Start Date Expiration Date V isits Requested Visits Authorized [id number] Closed Auto-Generate d Referral 05/22/2022 06/21/2023 1 1 Additional Source Comments INFORMATION SOURCE (unrecogn ized section and content) DATE CREATED AUTHOR 03/03/2019 [facility] DATE CREATED AUTHOR AUTHOR'S ORGANIZ ATION 09/22/2019 [facility] DATE CREATED AUTHOR AUTHOR'S ORGANIZ ATION 04/19/2021 [facility] DATE CREATED AUTHOR AUTHOR'S ORGANIZ ATION 07/08/2021 [facility] DATE CREATED AUTHOR AUTHOR'S ORGANIZ ATION 06/23/2022 [facility] DATE CREATED AUTHOR AUTHOR'S ORGANIZ ATION 10/19/2022 [facility] DATE CREATED AUTHOR AUTHOR'S ORGANIZ ATION 03/29/2023 [facility] DATE CREATED AUTHOR AUTHOR'S ORGANIZ ATION 05/11/2024 [facility] DATE CREATED AUTHOR AUTHOR'S ORGANIZ ATION 05/20/2024 [facility] DATE CREATED AUTHOR AUTHOR'S ORGANIZ ATION 08/23/2024 Silvestre Osmani [facility] DATE CREATED AUTHOR AUTHOR'S ORGANIZ ATION 09/15/2024 [facility] dical Specialists [facility] DATE CREATED AUTHOR AUTHOR'S ORGANIZ ATION 11/09/2024 [facility] DATE CREATED AUTHOR AUTHOR'S ORGANIZ ATION 11/21/2024 [facility] Source Comments (unrecognize d section and content) In the event this informatio n is protected by the Federal Confidentiality of Alcohol and Drug Abuse Patient Records regulations: The Federal rules restrict any use of the information to criminally investigate or prosecute any alcohol or drug abuse patient.[facility] the event this information is protected by the Federal Confidentiality of Alcohol and Drug Abuse Patient Records regulations: The Federal rules restrict any use of the information to criminally investigate or prosecute any alcohol or drug abuse patient.[facility] HospitalIn the event this information is protected by the Federal Confidentiality of Alcohol and Drug Abuse Patient Records regulations: The Federal rules restrict any use of the information to criminally investigate or prosecute any alcohol or drug abuse patient.[facility] HospitalIn the event this information is protected by the Federal Confidentiality of Alcohol and Drug Abuse Patient Records regulations: The Federal rules restrict any use of the information to criminally investigate or prosecute any alcohol or drug abuse patient.[facility] HospitalIn the event this information is protected by the Federal Confidentiality of Alcohol and Drug Abuse Patient Records regulations: The Federal rules restrict any use of the information to criminally investigate or prosecute any alcohol or drug abuse patient.[facility] HospitalIn the event this information is protected by the Federal Confidentiality of Alcohol and Drug Abuse Patient Records regulations: The Federal rules restrict any use of the information to criminally investigate or prosecute any alcohol or drug abuse patient.[facility] HospitalIn the event this information is protected by the Federal Confidentiality of Alcohol and Drug Abuse Patient Records regulations: The Federal rules restrict any use of the information to criminally investigate or prosecute any alcohol or drug abuse patient.[facility] HospitalIn the event this information is protected by the Federal Confidentiality of Alcohol and Drug Abuse Patient Records regulations: The Federal rules restrict any use of the information to criminally investigate or prosecute any alcohol or drug abuse patient.[facility] HospitalIn the event this information is protected by the Federal Confidentiality of Alcohol and Drug Abuse Patient Records regulations: The Federal rules restrict any use of the information to criminally investigate or prosecute any alcohol or drug abuse patient.[facility] HospitalIn the event this information is protected by the Federal Confidentiality of Alcohol and Drug Abuse Patient Records regulations: The Federal rules restrict any use of the information to criminally investigate or prosecute any alcohol or drug abuse patient.[facility] HospitalIn the event this information is protected by the Federal Confidentiality of Alcohol and Drug Abuse Patient Records regulations: The Federal rules restrict any use of the information to criminally investigate or prosecute any alcohol or drug abuse patient.[facility] HospitalIn the event this information is protected by the Federal Confidentiality of Alcohol and Drug Abuse Patient Records regulations: The Federal rules restrict any use of the information to criminally investigate or prosecute any alcohol or drug abuse patient.[facility] HospitalIn the event this information is protected by the Federal Confidentiality of Alcohol and Drug Abuse Patient Records regulations: The Federal rules restrict any use of the information to criminally investigate or prosecute any alcohol or drug abuse patient.[facility] HospitalIn the event this information is protected by the Federal Confidentiality of Alcohol and Drug Abuse Patient Records regulations: The Federal rules restrict any use of the information to criminally investigate or prosecute any alcohol or drug abuse patient.[facility] HospitalIn the event this information is protected by the Federal Confidentiality of Alcohol and Drug Abuse Patient Records regulations: The Federal rules restrict any use of the information to criminally investigate or prosecute any alcohol or drug abuse patient.[facility] HospitalIn the event this information is protected by the Federal Confidentiality of Alcohol and Drug Abuse Patient Records regulations: The Federal rules restrict any use of the information to criminally investigate or prosecute any alcohol or drug abuse patient.[facility] HospitalIn the event this information is protected by the Federal Confidentiality of Alcohol and Drug Abuse Patient Records regulations: The Federal rules restrict any use of the information to criminally investigate or prosecute any alcohol or drug abuse patient.[facility] HospitalIn the event this information is protected by the Federal Confidentiality of Alcohol and Drug Abuse Patient Records regulations: The Federal rules restrict any use of the information to criminally investigate or prosecute any alcohol or drug abuse patient.[facility] HospitalIn the event this information is protected by the Federal Confidentiality of Alcohol and Drug Abuse Patient Records regulations: The Federal rules restrict any use of the information to criminally investigate or prosecute any alcohol or drug abuse patient.[facility] HospitalIn the event this information is protected by the Federal Confidentiality of Alcohol and Drug Abuse Patient Records regulations: The Federal rules restrict any use of the information to criminally investigate or prosecute any alcohol or drug abuse patient.[facility] HospitalIn the event this information is protected by the Federal Confidentiality of Alcohol and Drug Abuse Patient Records regulations: The Federal rules restrict any use of the information to criminally investigate or prosecute any alcohol or drug abuse patient.[facility] HospitalIn the event this information is protected by the Federal Confidentiality of Alcohol and Drug Abuse Patient Records regulations: The Federal rules restrict any use of the information to criminally investigate or prosecute any alcohol or drug abuse patient.[facility] HospitalIn the event this information is protected by the Federal Confidentiality of Alcohol and Drug Abuse Patient Records regulations: The Federal rules restrict any use of the information to criminally investigate or prosecute any alcohol or drug abuse patient.[facility] HospitalIn the event this information is protected by the Federal Confidentiality of Alcohol and Drug Abuse Patient Records regulations: The Federal rules restrict any use of the information to criminally investigate or prosecute any alcohol or drug abuse patient.[facility] HospitalIn the event this information is protected by the Federal Confidentiality of Alcohol and Drug Abuse Patient Records regulations: The Federal rules restrict any use of the information to criminally investigate or prosecute any alcohol or drug abuse patient.[facility] HospitalIn the event this information is protected by the Federal Confidentiality of Alcohol and Drug Abuse Patient Records regulations: The Federal rules restrict any use of the information to criminally investigate or prosecute any alcohol or drug abuse patient.[facility] HospitalIn the event this information is protected by the Federal Confidentiality of Alcohol and Drug Abuse Patient Records regulations: The Federal rules restrict any use of the information to criminally investigate or prosecute any alcohol or drug abuse patient.[facility] HospitalIn the event this information is protected by the Federal Confidentiality of Alcohol and Drug Abuse Patient Records regulations: The Federal rules restrict any use of the information to criminally investigate or prosecute any alcohol or drug abuse patient.[facility] HospitalIn the event this information is protected by the Federal Confidentiality of Alcohol and Drug Abuse Patient Records regulations: The Federal rules restrict any use of the information to criminally investigate or prosecute any alcohol or drug abuse patient.[facility] HospitalIn the event this information is protected by the Federal Confidentiality of Alcohol and Drug Abuse Patient Records regulations: The Federal rules restrict any use of the information to criminally investigate or prosecute any alcohol or drug abuse patient.[facility] HospitalIn the event this information is protected by the Federal Confidentiality of Alcohol and Drug Abuse Patient Records regulations: The Federal rules restrict any use of the information to criminally investigate or prosecute any alcohol or drug abuse patient.[facility] HospitalIn the event this information is protected by the Federal Confidentiality of Alcohol and Drug Abuse Patient Records regulations: The Federal rules restrict any use of the information to criminally investigate or prosecute any alcohol or drug abuse patient.[facility] HospitalIn the event this information is protected by the Federal Confidentiality of Alcohol and Drug Abuse Patient Records regulations: The Federal rules restrict any use of the information to criminally investigate or prosecute any alcohol or drug abuse patient.[facility] HospitalIn the event this information is protected by the Federal Confidentiality of Alcohol and Drug Abuse Patient Records regulations: The Federal rules restrict any use of the information to criminally investigate or prosecute any alcohol or drug abuse patient.[facility] HospitalIn the event this information is protected by the Federal Confidentiality of Alcohol and Drug Abuse Patient Records regulations: The Federal rules restrict any use of the information to criminally investigate or prosecute any alcohol or drug abuse patient.[facility] HospitalIn the event this information is protected by the Federal Confidentiality of Alcohol and Drug Abuse Patient Records regulations: The Federal rules restrict any use of the information to criminally investigate or prosecute any alcohol or drug abuse patient.[facility] HospitalIn the event this information is protected by the Federal Confidentiality of Alcohol and Drug Abuse Patient Records regulations: The Federal rules restrict any use of the information to criminally investigate or prosecute any alcohol or drug abuse patient.[facility] HospitalIn the event this information is protected by the Federal Confidentiality of Alcohol and Drug Abuse Patient Records regulations: The Federal rules restrict any use of the information to criminally investigate or prosecute any alcohol or drug abuse patient.[facility] HospitalIn the event this information is protected by the Federal Confidentiality of Alcohol and Drug Abuse Patient Records regulations: The Federal rules restrict any use of the information to criminally investigate or prosecute any alcohol or drug abuse patient.[facility] HospitalIn the event this information is protected by the Federal Confidentiality of Alcohol and Drug Abuse Patient Records regulations: The Federal rules restrict any use of the information to criminally investigate or prosecute any alcohol or drug abuse patient.[facility] HospitalIn the event this information is protected by the Federal Confidentiality of Alcohol and Drug Abuse Patient Records regulations: The Federal rules restrict any use of the information to criminally investigate or prosecute any alcohol or drug abuse patient.[facility] HospitalIn the event this information is protected by the Federal Confidentiality of Alcohol and Drug Abuse Patient Records regulations: The Federal rules restrict any use of the information to criminally investigate or prosecute any alcohol or drug abuse patient.[facility] HospitalIn the event this information is protected by the Federal Confidentiality of Alcohol and Drug Abuse Patient Records regulations: The Federal rules restrict any use of the information to criminally investigate or prosecute any alcohol or drug abuse patient.[facility] HospitalIn the event this information is protected by the Federal Confidentiality of Alcohol and Drug Abuse Patient Records regulations: The Federal rules restrict any use of the information to criminally investigate or prosecute any alcohol or drug abuse patient.[facility] HospitalIn the event this information is protected by the Federal Confidentiality of Alcohol and Drug Abuse Patient Records regulations: The Federal rules restrict any use of the information to criminally investigate or prosecute any alcohol or drug abuse patient.[facility] HospitalIn the event this information is protected by the Federal Confidentiality of Alcohol and Drug Abuse Patient Records regulations: The Federal rules restrict any use of the information to criminally investigate or prosecute any alcohol or drug abuse patient.[facility] HospitalIn the event this information is protected by the Federal Confidentiality of Alcohol and Drug Abuse Patient Records regulations: The Federal rules restrict any use of the information to criminally investigate or prosecute any alcohol or drug abuse patient.[facility] HospitalIn the event this information is protected by the Federal Confidentiality of Alcohol and Drug Abuse Patient Records regulations: The Federal rules restrict any use of the information to criminally investigate or prosecute any alcohol or drug abuse patient.[facility] HospitalIn the event this information is protected by the Federal Confidentiality of Alcohol and Drug Abuse Patient Records regulations: The Federal rules restrict any use of the information to criminally investigate or prosecute any alcohol or drug abuse patient.[facility] HospitalIn the event this information is protected by the Federal Confidentiality of Alcohol and Drug Abuse Patient Records regulations: The Federal rules restrict any use of the information to criminally investigate or prosecute any alcohol or drug abuse patient.[facility] HospitalIn the event this information is protected by the Federal Confidentiality of Alcohol and Drug Abuse Patient Records regulations: The Federal rules restrict any use of the information to criminally investigate or prosecute any alcohol or drug abuse patient.[facility] HospitalIn the event this information is protected by the Federal Confidentiality of Alcohol and Drug Abuse Patient Records regulations: The Federal rules restrict any use of the information to criminally investigate or prosecute any alcohol or drug abuse patient.[facility] HospitalIn the event this information is protected by the Federal Confidentiality of Alcohol and Drug Abuse Patient Records regulations: The Federal rules restrict any use of the information to criminally investigate or prosecute any alcohol or drug abuse patient.[facility] HospitalIn the event this information is protected by the Federal Confidentiality of Alcohol and Drug Abuse Patient Records regulations: The Federal rules restrict any use of the information to criminally investigate or prosecute any alcohol or drug abuse patient.[facility] HospitalIn the event this information is protected by the Federal Confidentiality of Alcohol and Drug Abuse Patient Records regulations: The Federal rules restrict any use of the information to criminally investigate or prosecute any alcohol or drug abuse patient.[facility] HospitalIn the event this information is protected by the Federal Confidentiality of Alcohol and Drug Abuse Patient Records regulations: The Federal rules restrict any use of the information to criminally investigate or prosecute any alcohol or drug abuse patient.[facility] HospitalIn the event this information is protected by the Federal Confidentiality of Alcohol and Drug Abuse Patient Records regulations: The Federal rules restrict any use of the information to criminally investigate or prosecute any alcohol or drug abuse patient.[facility] HospitalIn the event this information is protected by the Federal Confidentiality of Alcohol and Drug Abuse Patient Records regulations: The Federal rules restrict any use of the information to criminally investigate or prosecute any alcohol or drug abuse patient.[facility] HospitalIn the event this information is protected by the Federal Confidentiality of Alcohol and Drug Abuse Patient Records regulations: The Federal rules restrict any use of the information to criminally investigate or prosecute any alcohol or drug abuse patient.[facility] HospitalIn the event this information is protected by the Federal Confidentiality of Alcohol and Drug Abuse Patient Records regulations: The Federal rules restrict any use of the information to criminally investigate or prosecute any alcohol or drug abuse patient.[facility] HospitalIn the event this information is protected by the Federal Confidentiality of Alcohol and Drug Abuse Patient Records regulations: The Federal rules restrict any use of the information to criminally investigate or prosecute any alcohol or drug abuse patient.[facility] HospitalIn the event this information is protected by the Federal Confidentiality of Alcohol and Drug Abuse Patient Records regulations: The Federal rules restrict any use of the information to criminally investigate or prosecute any alcohol or drug abuse patient.[facility] HospitalIn the event this information is protected by the Federal Confidentiality of Alcohol and Drug Abuse Patient Records regulations: The Federal rules restrict any use of the information to criminally investigate or prosecute any alcohol or drug abuse patient.[facility] HospitalIn the event this information is protected by the Federal Confidentiality of Alcohol and Drug Abuse Patient Records regulations: The Federal rules restrict any use of the information to criminally investigate or prosecute any alcohol or drug abuse patient.[facility] HospitalIn the event this information is protected by the Federal Confidentiality of Alcohol and Drug Abuse Patient Records regulations: The Federal rules restrict any use of the information to criminally investigate or prosecute any alcohol or drug abuse patient.[facility] HospitalIn the event this information is protected by the Federal Confidentiality of Alcohol and Drug Abuse Patient Records regulations: The Federal rules restrict any use of the information to criminally investigate or prosecute any alcohol or drug abuse patient.[facility] HospitalIn the event this information is protected by the Federal Confidentiality of Alcohol and Drug Abuse Patient Records regulations: The Federal rules restrict any use of the information to criminally investigate or prosecute any alcohol or drug abuse patient.[facility] HospitalIn the event this information is protected by the Federal Confidentiality of Alcohol and Drug Abuse Patient Records regulations: The Federal rules restrict any use of the information to criminally investigate or prosecute any alcohol or drug abuse patient.[facility] HospitalIn the event this information is protected by the Federal Confidentiality of Alcohol and Drug Abuse Patient Records regulations: The Federal rules restrict any use of the information to criminally investigate or prosecute any alcohol or drug abuse patient.[facility] HospitalIn the event this information is protected by the Federal Confidentiality of Alcohol and Drug Abuse Patient Records regulations: The Federal rules restrict any use of the information to criminally investigate or prosecute any alcohol or drug abuse patient.[facility] HospitalIn the event this information is protected by the Federal Confidentiality of Alcohol and Drug Abuse Patient Records regulations: The Federal rules restrict any use of the information to criminally investigate or prosecute any alcohol or drug abuse patient.[facility] HospitalIn the event this information is protected by the Federal Confidentiality of Alcohol and Drug Abuse Patient Records regulations: The Federal rules restrict any use of the information to criminally investigate or prosecute any alcohol or drug abuse patient.[facility] HospitalIn the event this information is protected by the Federal Confidentiality of Alcohol and Drug Abuse Patient Records regulations: The Federal rules restrict any use of the information to criminally investigate or prosecute any alcohol or drug abuse patient.[facility] HospitalIn the event this information is protected by the Federal Confidentiality of Alcohol and Drug Abuse Patient Records regulations: The Federal rules restrict any use of the information to criminally investigate or prosecute any alcohol or drug abuse patient.[facility] HospitalIn the event this information is protected by the Federal Confidentiality of Alcohol and Drug Abuse Patient Records regulations: The Federal rules restrict any use of the information to criminally investigate or prosecute any alcohol or drug abuse patient.[facility] HospitalIn the event this information is protected by the Federal Confidentiality of Alcohol and Drug Abuse Patient Records regulations: The Federal rules restrict any use of the information to criminally investigate or prosecute any alcohol or drug abuse patient.[facility] HospitalIn the event this information is protected by the Federal Confidentiality of Alcohol and Drug Abuse Patient Records regulations: The Federal rules restrict any use of the information to criminally investigate or prosecute any alcohol or drug abuse patient.[facility] HospitalIn the event this information is protected by the Federal Confidentiality of Alcohol and Drug Abuse Patient Records regulations: The Federal rules restrict any use of the information to criminally investigate or prosecute any alcohol or drug abuse patient.[facility] HospitalIn the event this information is protected by the Federal Confidentiality of Alcohol and Drug Abuse Patient Records regulations: The Federal rules restrict any use of the information to criminally investigate or prosecute any alcohol or drug abuse patient.[facility] HospitalIn the event this information is protected by the Federal Confidentiality of Alcohol and Drug Abuse Patient Records regulations: The Federal rules restrict any use of the information to criminally investigate or prosecute any alcohol or drug abuse patient.[facility] HospitalIn the event this information is protected by the Federal Confidentiality of Alcohol and Drug Abuse Patient Records regulations: The Federal rules restrict any use of the information to criminally investigate or prosecute any alcohol or drug abuse patient.[facility] HospitalIn the event this information is protected by the Federal Confidentiality of Alcohol and Drug Abuse Patient Records regulations: The Federal rules restrict any use of the information to criminally investigate or prosecute any alcohol or drug abuse patient.[facility] HospitalIn the event this information is protected by the Federal Confidentiality of Alcohol and Drug Abuse Patient Records regulations: The Federal rules restrict any use of the information to criminally investigate or prosecute any alcohol or drug abuse patient.[facility] HospitalIn the event this information is protected by the Federal Confidentiality of Alcohol and Drug Abuse Patient Records regulations: The Federal rules restrict any use of the information to criminally investigate or prosecute any alcohol or drug abuse patient.[facility] HospitalIn the event this information is protected by the Federal Confidentiality of Alcohol and Drug Abuse Patient Records regulations: The Federal rules restrict any use of the information to criminally investigate or prosecute any alcohol or drug abuse patient.[facility] HospitalIn the event this information is protected by the Federal Confidentiality of Alcohol and Drug Abuse Patient Records regulations: The Federal rules restrict any use of the information to criminally investigate or prosecute any alcohol or drug abuse patient.[facility] HospitalIn the event this information is protected by the Federal Confidentiality of Alcohol and Drug Abuse Patient Records regulations: The Federal rules restrict any use of the information to criminally investigate or prosecute any alcohol or drug abuse patient.[facility] HospitalIn the event this information is protected by the Federal Confidentiality of Alcohol and Drug Abuse Patient Records regulations: The Federal rules restrict any use of the information to criminally investigate or prosecute any alcohol or drug abuse patient.[facility] HospitalIn the event this information is protected by the Federal Confidentiality of Alcohol and Drug Abuse Patient Records regulations: The Federal rules restrict any use of the information to criminally investigate or prosecute any alcohol or drug abuse patient.[facility] HospitalIn the event this information is protected by the Federal Confidentiality of Alcohol and Drug Abuse Patient Records regulations: The Federal rules restrict any use of the information to criminally investigate or prosecute any alcohol or drug abuse patient.[facility] HospitalIn the event this information is protected by the Federal Confidentiality of Alcohol and Drug Abuse Patient Records regulations: The Federal rules restrict any use of the information to criminally investigate or prosecute any alcohol or drug abuse patient.[facility] HospitalIn the event this information is protected by the Federal Confidentiality of Alcohol and Drug Abuse Patient Records regulations: The Federal rules restrict any use of the information to criminally investigate or prosecute any alcohol or drug abuse patient.[facility] HospitalIn the event this information is protected by the Federal Confidentiality of Alcohol and Drug Abuse Patient Records regulations: The Federal rules restrict any use of the information to criminally investigate or prosecute any alcohol or drug abuse patient.[facility] HospitalIn the event this information is protected by the Federal Confidentiality of Alcohol and Drug Abuse Patient Records regulations: The Federal rules restrict any use of the information to criminally investigate or prosecute any alcohol or drug abuse patient.[facility] HospitalIn the event this information is protected by the Federal Confidentiality of Alcohol and Drug Abuse Patient Records regulations: The Federal rules restrict any use of the information to criminally investigate or prosecute any alcohol or drug abuse patient.[facility] HospitalIn the event this information is protected by the Federal Confidentiality of Alcohol and Drug Abuse Patient Records regulations: The Federal rules restrict any use of the information to criminally investigate or prosecute any alcohol or drug abuse patient.[facility] HospitalIn the event this information is protected by the Federal Confidentiality of Alcohol and Drug Abuse Patient Records regulations: The Federal rules restrict any use of the information to criminally investigate or prosecute any alcohol or drug abuse patient.[facility] HospitalIn the event this information is protected by the Federal Confidentiality of Alcohol and Drug Abuse Patient Records regulations: The Federal rules restrict any use of the information to criminally investigate or prosecute any alcohol or drug abuse patient.[facility] HospitalIn the event this information is protected by the Federal Confidentiality of Alcohol and Drug Abuse Patient Records regulations: The Federal rules restrict any use of the information to criminally investigate or prosecute any alcohol or drug abuse patient.[facility] HospitalIn the event this information is protected by the Federal Confidentiality of Alcohol and Drug Abuse Patient Records regulations: The Federal rules restrict any use of the information to criminally investigate or prosecute any alcohol or drug abuse patient.[facility] HospitalIn the event this information is protected by the Federal Confidentiality of Alcohol and Drug Abuse Patient Records regulations: The Federal rules restrict any use of the information to criminally investigate or prosecute any alcohol or drug abuse patient.[facility] HospitalIn the event this information is protected by the Federal Confidentiality of Alcohol and Drug Abuse Patient Records regulations: The Federal rules restrict any use of the information to criminally investigate or prosecute any alcohol or drug abuse patient.[facility] HospitalIn the event this information is protected by the Federal Confidentiality of Alcohol and Drug Abuse Patient Records regulations: The Federal rules restrict any use of the information to criminally investigate or prosecute any alcohol or drug abuse patient.[facility] HospitalIn the event this information is protected by the Federal Confidentiality of Alcohol and Drug Abuse Patient Records regulations: The Federal rules restrict any use of the information to criminally investigate or prosecute any alcohol or drug abuse patient.[facility] HospitalIn the event this information is protected by the Federal Confidentiality of Alcohol and Drug Abuse Patient Records regulations: The Federal rules restrict any use of the information to criminally investigate or prosecute any alcohol or drug abuse patient.[facility] HospitalIn the event this information is protected by the Federal Confidentiality of Alcohol and Drug Abuse Patient Records regulations: The Federal rules restrict any use of the information to criminally investigate or prosecute any alcohol or drug abuse patient.[facility] HospitalIn the event this information is protected by the Federal Confidentiality of Alcohol and Drug Abuse Patient Records regulations: The Federal rules restrict any use of the information to criminally investigate or prosecute any alcohol or drug abuse patient.[facility] HospitalIn the event this information is protected by the Federal Confidentiality of Alcohol and Drug Abuse Patient Records regulations: The Federal rules restrict any use of the information to criminally investigate or prosecute any alcohol or drug abuse patient.[facility] HospitalIn the event this information is protected by the Federal Confidentiality of Alcohol and Drug Abuse Patient Records regulations: The Federal rules restrict any use of the information to criminally investigate or prosecute any alcohol or drug abuse patient.[facility] HospitalIn the event this information is protected by the Federal Confidentiality of Alcohol and Drug Abuse Patient Records regulations: The Federal rules restrict any use of the information to criminally investigate or prosecute any alcohol or drug abuse patient.[facility] HospitalIn the event this information is protected by the Federal Confidentiality of Alcohol and Drug Abuse Patient Records regulations: The Federal rules restrict any use of the information to criminally investigate or prosecute any alcohol or drug abuse patient.[facility] HospitalIn the event this information is protected by the Federal Confidentiality of Alcohol and Drug Abuse Patient Records regulations: The Federal rules restrict any use of the information to criminally investigate or prosecute any alcohol or drug abuse patient.[facility] HospitalIn the event this information is protected by the Federal Confidentiality of Alcohol and Drug Abuse Patient Records regulations: The Federal rules restrict any use of the information to criminally investigate or prosecute any alcohol or drug abuse patient.[facility] HospitalIn the event this information is protected by the Federal Confidentiality of Alcohol and Drug Abuse Patient Records regulations: The Federal rules restrict any use of the information to criminally investigate or prosecute any alcohol or drug abuse patient.[facility] HospitalIn the event this information is protected by the Federal Confidentiality of Alcohol and Drug Abuse Patient Records regulations: The Federal rules restrict any use of the information to criminally investigate or prosecute any alcohol or drug abuse patient.[facility] HospitalIn the event this information is protected by the Federal Confidentiality of Alcohol and Drug Abuse Patient Records regulations: The Federal rules restrict any use of the information to criminally investigate or prosecute any alcohol or drug abuse patient.[facility] HospitalIn the event this information is protected by the Federal Confidentiality of Alcohol and Drug Abuse Patient Records regulations: The Federal rules restrict any use of the information to criminally investigate or prosecute any alcohol or drug abuse patient.[facility] HospitalIn the event this information is protected by the Federal Confidentiality of Alcohol and Drug Abuse Patient Records regulations: The Federal rules restrict any use of the information to criminally investigate or prosecute any alcohol or drug abuse patient.[facility] HospitalIn the event this information is protected by the Federal Confidentiality of Alcohol and Drug Abuse Patient Records regulations: The Federal rules restrict any use of the information to criminally investigate or prosecute any alcohol or drug abuse patient.[facility] HospitalIn the event this information is protected by the Federal Confidentiality of Alcohol and Drug Abuse Patient Records regulations: The Federal rules restrict any use of the information to criminally investigate or prosecute any alcohol or drug abuse patient.[facility] HospitalIn the event this information is protected by the Federal Confidentiality of Alcohol and Drug Abuse Patient Records regulations: The Federal rules restrict any use of the information to criminally investigate or prosecute any alcohol or drug abuse patient.[facility] HospitalIn the event this information is protected by the Federal Confidentiality of Alcohol and Drug Abuse Patient Records regulations: The Federal rules restrict any use of the information to criminally investigate or prosecute any alcohol or drug abuse patient.[facility] HospitalIn the event this information is protected by the Federal Confidentiality of Alcohol and Drug Abuse Patient Records regulations: The Federal rules restrict any use of the information to criminally investigate or prosecute any alcohol or drug abuse patient.[facility] HospitalIn the event this information is protected by the Federal Confidentiality of Alcohol and Drug Abuse Patient Records regulations: The Federal rules restrict any use of the information to criminally investigate or prosecute any alcohol or drug abuse patient.[facility] HospitalIn the event this information is protected by the Federal Confidentiality of Alcohol and Drug Abuse Patient Records regulations: The Federal rules restrict any use of the information to criminally investigate or prosecute any alcohol or drug abuse patient.[facility] HospitalIn the event this information is protected by the Federal Confidentiality of Alcohol and Drug Abuse Patient Records regulations: The Federal rules restrict any use of the information to criminally investigate or prosecute any alcohol or drug abuse patient.[facility] HospitalIn the event this information is protected by the Federal Confidentiality of Alcohol and Drug Abuse Patient Records regulations: The Federal rules restrict any use of the information to criminally investigate or prosecute any alcohol or drug abuse patient.[facility] HospitalIn the event this information is protected by the Federal Confidentiality of Alcohol and Drug Abuse Patient Records regulations: The Federal rules restrict any use of the information to criminally investigate or prosecute any alcohol or drug abuse patient.[facility] HospitalIn the event this information is protected by the Federal Confidentiality of Alcohol and Drug Abuse Patient Records regulations: The Federal rules restrict any use of the information to criminally investigate or prosecute any alcohol or drug abuse patient.[facility] HospitalIn the event this information is protected by the Federal Confidentiality of Alcohol and Drug Abuse Patient Records regulations: The Federal rules restrict any use of the information to criminally investigate or prosecute any alcohol or drug abuse patient.[facility] HospitalIn the event this information is protected by the Federal Confidentiality of Alcohol and Drug Abuse Patient Records regulations: The Federal rules restrict any use of the information to criminally investigate or prosecute any alcohol or drug abuse patient.[facility] HospitalIn the event this information is protected by the Federal Confidentiality of Alcohol and Drug Abuse Patient Records regulations: The Federal rules restrict any use of the information to criminally investigate or prosecute any alcohol or drug abuse patient.[facility] HospitalIn the event this information is protected by the Federal Confidentiality of Alcohol and Drug Abuse Patient Records regulations: The Federal rules restrict any use of the information to criminally investigate or prosecute any alcohol or drug abuse patient.[facility] HospitalIn the event this information is protected by the Federal Confidentiality of Alcohol and Drug Abuse Patient Records regulations: The Federal rules restrict any use of the information to criminally investigate or prosecute any alcohol or drug abuse patient.[facility] HospitalIn the event this information is protected by the Federal Confidentiality of Alcohol and Drug Abuse Patient Records regulations: The Federal rules restrict any use of the information to criminally investigate or prosecute any alcohol or drug abuse patient.[facility] HospitalIn the event this information is protected by the Federal Confidentiality of Alcohol and Drug Abuse Patient Records regulations: The Federal rules restrict any use of the information to criminally investigate or prosecute any alcohol or drug abuse patient.[facility] HospitalIn the event this information is protected by the Federal Confidentiality of Alcohol and Drug Abuse Patient Records regulations: The Federal rules restrict any use of the information to criminally investigate or prosecute any alcohol or drug abuse patient.[facility] HospitalIn the event this information is protected by the Federal Confidentiality of Alcohol and Drug Abuse Patient Records regulations: The Federal rules restrict any use of the information to criminally investigate or prosecute any alcohol or drug abuse patient.[facility] HospitalIn the event this information is protected by the Federal Confidentiality of Alcohol and Drug Abuse Patient Records regulations: The Federal rules restrict any use of the information to criminally investigate or prosecute any alcohol or drug abuse patient.[facility] HospitalIn the event this information is protected by the Federal Confidentiality of Alcohol and Drug Abuse Patient Records regulations: The Federal rules restrict any use of the information to criminally investigate or prosecute any alcohol or drug abuse patient.[facility] HospitalIn the event this information is protected by the Federal Confidentiality of Alcohol and Drug Abuse Patient Records regulations: The Federal rules restrict any use of the information to criminally investigate or prosecute any alcohol or drug abuse patient.[facility] HospitalIn the event this information is protected by the Federal Confidentiality of Alcohol and Drug Abuse Patient Records regulations: The Federal rules restrict any use of the information to criminally investigate or prosecute any alcohol or drug abuse patient.[facility] HospitalIn the event this information is protected by the Federal Confidentiality of Alcohol and Drug Abuse Patient Records regulations: The Federal rules restrict any use of the information to criminally investigate or prosecute any alcohol or drug abuse patient.[facility] HospitalIn the event this information is protected by the Federal Confidentiality of Alcohol and Drug Abuse Patient Records regulations: The Federal rules restrict any use of the information to criminally investigate or prosecute any alcohol or drug abuse patient.[facility] HospitalIn the event this information is protected by the Federal Confidentiality of Alcohol and Drug Abuse Patient Records regulations: The Federal rules restrict any use of the information to criminally investigate or prosecute any alcohol or drug abuse patient.[facility] HospitalIn the event this information is protected by the Federal Confidentiality of Alcohol and Drug Abuse Patient Records regulations: The Federal rules restrict any use of the information to criminally investigate or prosecute any alcohol or drug abuse patient.[facility] HospitalIn the event this information is protected by the Federal Confidentiality of Alcohol and Drug Abuse Patient Records regulations: The Federal rules restrict any use of the information to criminally investigate or prosecute any alcohol or drug abuse patient.[facility] HospitalIn the event this information is protected by the Federal Confidentiality of Alcohol and Drug Abuse Patient Records regulations: The Federal rules restrict any use of the information to criminally investigate or prosecute any alcohol or drug abuse patient.[facility] HospitalIn the event this information is protected by the Federal Confidentiality of Alcohol and Drug Abuse Patient Records regulations: The Federal rules restrict any use of the information to criminally investigate or prosecute any alcohol or drug abuse patient.[facility] HospitalIn the event this information is protected by the Federal Confidentiality of Alcohol and Drug Abuse Patient Records regulations: The Federal rules restrict any use of the information to criminally investigate or prosecute any alcohol or drug abuse patient.[facility] HospitalIn the event this information is protected by the Federal Confidentiality of Alcohol and Drug Abuse Patient Records regulations: The Federal rules restrict any use of the information to criminally investigate or prosecute any alcohol or drug abuse patient.[facility] HospitalIn the event this information is protected by the Federal Confidentiality of Alcohol and Drug Abuse Patient Records regulations: The Federal rules restrict any use of the information to criminally investigate or prosecute any alcohol or drug abuse patient.[facility] HospitalIn the event this information is protected by the Federal Confidentiality of Alcohol and Drug Abuse Patient Records regulations: The Federal rules restrict any use of the information to criminally investigate or prosecute any alcohol or drug abuse patient.[facility] HospitalIn the event this information is protected by the Federal Confidentiality of Alcohol and Drug Abuse Patient Records regulations: The Federal rules restrict any use of the information to criminally investigate or prosecute any alcohol or drug abuse patient.[facility] HospitalIn the event this information is protected by the Federal Confidentiality of Alcohol and Drug Abuse Patient Records regulations: The Federal rules restrict any use of the information to criminally investigate or prosecute any alcohol or drug abuse patient.[facility] HospitalIn the event this information is protected by the Federal Confidentiality of Alcohol and Drug Abuse Patient Records regulations: The Federal rules restrict any use of the information to criminally investigate or prosecute any alcohol or drug abuse patient.[facility] HospitalIn the event this information is protected by the Federal Confidentiality of Alcohol and Drug Abuse Patient Records regulations: The Federal rules restrict any use of the information to criminally investigate or prosecute any alcohol or drug abuse patient.[facility] HospitalIn the event this information is protected by the Federal Confidentiality of Alcohol and Drug Abuse Patient Records regulations: The Federal rules restrict any use of the information to criminally investigate or prosecute any alcohol or drug abuse patient.[facility] HospitalIn the event this information is protected by the Federal Confidentiality of Alcohol and Drug Abuse Patient Records regulations: The Federal rules restrict any use of the information to criminally investigate or prosecute any alcohol or drug abuse patient.[facility] HospitalIn the event this information is protected by the Federal Confidentiality of Alcohol and Drug Abuse Patient Records regulations: The Federal rules restrict any use of the information to criminally investigate or prosecute any alcohol or drug abuse patient.[facility] HospitalIn the event this information is protected by the Federal Confidentiality of Alcohol and Drug Abuse Patient Records regulations: The Federal rules restrict any use of the information to criminally investigate or prosecute any alcohol or drug abuse patient.[facility] HospitalIn the event this information is protected by the Federal Confidentiality of Alcohol and Drug Abuse Patient Records regulations: The Federal rules restrict any use of the information to criminally investigate or prosecute any alcohol or drug abuse patient.[facility] HospitalIn the event this information is protected by the Federal Confidentiality of Alcohol and Drug Abuse Patient Records regulations: The Federal rules restrict any use of the information to criminally investigate or prosecute any alcohol or drug abuse patient.[facility] HospitalIn the event this information is protected by the Federal Confidentiality of Alcohol and Drug Abuse Patient Records regulations: The Federal rules restrict any use of the information to criminally investigate or prosecute any alcohol or drug abuse patient.[facility] HospitalIn the event this information is protected by the Federal Confidentiality of Alcohol and Drug Abuse Patient Records regulations: The Federal rules restrict any use of the information to criminally investigate or prosecute any alcohol or drug abuse patient.[facility] HospitalIn the event this information is protected by the Federal Confidentiality of Alcohol and Drug Abuse Patient Records regulations: The Federal rules restrict any use of the information to criminally investigate or prosecute any alcohol or drug abuse patient.[facility] HospitalIn the event this information is protected by the Federal Confidentiality of Alcohol and Drug Abuse Patient Records regulations: The Federal rules restrict any use of the information to criminally investigate or prosecute any alcohol or drug abuse patient.[facility] HospitalIn the event this information is protected by the Federal Confidentiality of Alcohol and Drug Abuse Patient Records regulations: The Federal rules restrict any use of the information to criminally investigate or prosecute any alcohol or drug abuse patient.[facility] HospitalIn the event this information is protected by the Federal Confidentiality of Alcohol and Drug Abuse Patient Records regulations: The Federal rules restrict any use of the information to criminally investigate or prosecute any alcohol or drug abuse patient.[facility] HospitalIn the event this information is protected by the Federal Confidentiality of Alcohol and Drug Abuse Patient Records regulations: The Federal rules restrict any use of the information to criminally investigate or prosecute any alcohol or drug abuse patient.[facility] HospitalIn the event this information is protected by the Federal Confidentiality of Alcohol and Drug Abuse Patient Records regulations: The Federal rules restrict any use of the information to criminally investigate or prosecute any alcohol or drug abuse patient.[facility] HospitalIn the event this information is protected by the Federal Confidentiality of Alcohol and Drug Abuse Patient Records regulations: The Federal rules restrict any use of the information to criminally investigate or prosecute any alcohol or drug abuse patient.[facility] HospitalIn the event this information is protected by the Federal Confidentiality of Alcohol and Drug Abuse Patient Records regulations: The Federal rules restrict any use of the information to criminally investigate or prosecute any alcohol or drug abuse patient.[facility] HospitalIn the event this information is protected by the Federal Confidentiality of Alcohol and Drug Abuse Patient Records regulations: The Federal rules restrict any use of the information to criminally investigate or prosecute any alcohol or drug abuse patient.[facility] HospitalIn the event this information is protected by the Federal Confidentiality of Alcohol and Drug Abuse Patient Records regulations: The Federal rules restrict any use of the information to criminally investigate or prosecute any alcohol or drug abuse patient.[facility] HospitalIn the event this information is protected by the Federal Confidentiality of Alcohol and Drug Abuse Patient Records regulations: The Federal rules restrict any use of the information to criminally investigate or prosecute any alcohol or drug abuse patient.[facility] HospitalIn the event this information is protected by the Federal Confidentiality of Alcohol and Drug Abuse Patient Records regulations: The Federal rules restrict any use of the information to criminally investigate or prosecute any alcohol or drug abuse patient.[facility] HospitalIn the event this information is protected by the Federal Confidentiality of Alcohol and Drug Abuse Patient Records regulations: The Federal rules restrict any use of the information to criminally investigate or prosecute any alcohol or drug abuse patient.[facility] HospitalIn the event this information is protected by the Federal Confidentiality of Alcohol and Drug Abuse Patient Records regulations: The Federal rules restrict any use of the information to criminally investigate or prosecute any alcohol or drug abuse patient.[facility] HospitalIn the event this information is protected by the Federal Confidentiality of Alcohol and Drug Abuse Patient Records regulations: The Federal rules restrict any use of the information to criminally investigate or prosecute any alcohol or drug abuse patient.[facility] HospitalIn the event this information is protected by the Federal Confidentiality of Alcohol and Drug Abuse Patient Records regulations: The Federal rules restrict any use of the information to criminally investigate or prosecute any alcohol or drug abuse patient.[facility] HospitalIn the event this information is protected by the Federal Confidentiality of Alcohol and Drug Abuse Patient Records regulations: The Federal rules restrict any use of the information to criminally investigate or prosecute any alcohol or drug abuse patient.[facility] HospitalIn the event this information is protected by the Federal Confidentiality of Alcohol and Drug Abuse Patient Records regulations: The Federal rules restrict any use of the information to criminally investigate or prosecute any alcohol or drug abuse patient.[facility] HospitalIn the event this information is protected by the Federal Confidentiality of Alcohol and Drug Abuse Patient Records regulations: The Federal rules restrict any use of the information to criminally investigate or prosecute any alcohol or drug abuse patient.[facility] HospitalIn the event this information is protected by the Federal Confidentiality of Alcohol and Drug Abuse Patient Records regulations: The Federal rules restrict any use of the information to criminally investigate or prosecute any alcohol or drug abuse patient.[facility] HospitalIn the event this information is protected by the Federal Confidentiality of Alcohol and Drug Abuse Patient Records regulations: The Federal rules restrict any use of the information to criminally investigate or prosecute any alcohol or drug abuse patient.[facility] HospitalIn the event this information is protected by the Federal Confidentiality of Alcohol and Drug Abuse Patient Records regulations: The Federal rules restrict any use of the information to criminally investigate or prosecute any alcohol or drug abuse patient.[facility] HospitalIn the event this information is protected by the Federal Confidentiality of Alcohol and Drug Abuse Patient Records regulations: The Federal rules restrict any use of the information to criminally investigate or prosecute any alcohol or drug abuse patient.[facility] HospitalIn the event this information is protected by the Federal Confidentiality of Alcohol and Drug Abuse Patient Records regulations: The Federal rules restrict any use of the information to criminally investigate or prosecute any alcohol or drug abuse patient.[facility] HospitalIn the event this information is protected by the Federal Confidentiality of Alcohol and Drug Abuse Patient Records regulations: The Federal rules restrict any use of the information to criminally investigate or prosecute any alcohol or drug abuse patient.[facility] HospitalIn the event this information is protected by the Federal Confidentiality of Alcohol and Drug Abuse Patient Records regulations: The Federal rules restrict any use of the information to criminally investigate or prosecute any alcohol or drug abuse patient.[facility] HospitalIn the event this information is protected by the Federal Confidentiality of Alcohol and Drug Abuse Patient Records regulations: The Federal rules restrict any use of the information to criminally investigate or prosecute any alcohol or drug abuse patient.[facility] HospitalIn the event this information is protected by the Federal Confidentiality of Alcohol and Drug Abuse Patient Records regulations: The Federal rules restrict any use of the information to criminally investigate or prosecute any alcohol or drug abuse patient.[facility] HospitalIn the event this information is protected by the Federal Confidentiality of Alcohol and Drug Abuse Patient Records regulations: The Federal rules restrict any use of the information to criminally investigate or prosecute any alcohol or drug abuse patient.[facility] HospitalIn the event this information is protected by the Federal Confidentiality of Alcohol and Drug Abuse Patient Records regulations: The Federal rules restrict any use of the information to criminally investigate or prosecute any alcohol or drug abuse patient.[facility] HospitalIn the event this information is protected by the Federal Confidentiality of Alcohol and Drug Abuse Patient Records regulations: The Federal rules restrict any use of the information to criminally investigate or prosecute any alcohol or drug abuse patient.[facility] HospitalIn the event this information is protected by the Federal Confidentiality of Alcohol and Drug Abuse Patient Records regulations: The Federal rules restrict any use of the information to criminally investigate or prosecute any alcohol or drug abuse patient.[facility] HospitalIn the event this information is protected by the Federal Confidentiality of Alcohol and Drug Abuse Patient Records regulations: The Federal rules restrict any use of the information to criminally investigate or prosecute any alcohol or drug abuse patient.[facility] HospitalIn the event this information is protected by the Federal Confidentiality of Alcohol and Drug Abuse Patient Records regulations: The Federal rules restrict any use of the information to criminally investigate or prosecute any alcohol or drug abuse patient.[facility] HospitalIn the event this information is protected by the Federal Confidentiality of Alcohol and Drug Abuse Patient Records regulations: The Federal rules restrict any use of the information to criminally investigate or prosecute any alcohol or drug abuse patient.[facility] HospitalIn the event this information is protected by the Federal Confidentiality of Alcohol and Drug Abuse Patient Records regulations: The Federal rules restrict any use of the information to criminally investigate or prosecute any alcohol or drug abuse patient.[facility] HospitalIn the event this information is protected by the Federal Confidentiality of Alcohol and Drug Abuse Patient Records regulations: The Federal rules restrict any use of the information to criminally investigate or prosecute any alcohol or drug abuse patient.[facility] HospitalIn the event this information is protected by the Federal Confidentiality of Alcohol and Drug Abuse Patient Records regulations: The Federal rules restrict any use of the information to criminally investigate or prosecute any alcohol or drug abuse patient.[facility] HospitalIn the event this information is protected by the Federal Confidentiality of Alcohol and Drug Abuse Patient Records regulations: The Federal rules restrict any use of the information to criminally investigate or prosecute any alcohol or drug abuse patient.[facility] HospitalIn the event this information is protected by the Federal Confidentiality of Alcohol and Drug Abuse Patient Records regulations: The Federal rules restrict any use of the information to criminally investigate or prosecute any alcohol or drug abuse patient.[facility] HospitalIn the event this information is protected by the Federal Confidentiality of Alcohol and Drug Abuse Patient Records regulations: The Federal rules restrict any use of the information to criminally investigate or prosecute any alcohol or drug abuse patient.[facility] HospitalIn the event this information is protected by the Federal Confidentiality of Alcohol and Drug Abuse Patient Records regulations: The Federal rules restrict any use of the information to criminally investigate or prosecute any alcohol or drug abuse patient.[facility] HospitalIn the event this information is protected by the Federal Confidentiality of Alcohol and Drug Abuse Patient Records regulations: The Federal rules restrict any use of the information to criminally investigate or prosecute any alcohol or drug abuse patient.[facility] HospitalIn the event this information is protected by the Federal Confidentiality of Alcohol and Drug Abuse Patient Records regulations: The Federal rules restrict any use of the information to criminally investigate or prosecute any alcohol or drug abuse patient.[facility] HospitalIn the event this information is protected by the Federal Confidentiality of Alcohol and Drug Abuse Patient Records regulations: The Federal rules restrict any use of the information to criminally investigate or prosecute any alcohol or drug abuse patient.[facility] HospitalIn the event this information is protected by the Federal Confidentiality of Alcohol and Drug Abuse Patient Records regulations: The Federal rules restrict any use of the information to criminally investigate or prosecute any alcohol or drug abuse patient.[facility] HospitalIn the event this information is protected by the Federal Confidentiality of Alcohol and Drug Abuse Patient Records regulations: The Federal rules restrict any use of the information to criminally investigate or prosecute any alcohol or drug abuse patient.[facility] HospitalIn the event this information is protected by the Federal Confidentiality of Alcohol and Drug Abuse Patient Records regulations: The Federal rules restrict any use of the information to criminally investigate or prosecute any alcohol or drug abuse patient.[facility] HospitalIn the event this information is protected by the Federal Confidentiality of Alcohol and Drug Abuse Patient Records regulations: The Federal rules restrict any use of the information to criminally investigate or prosecute any alcohol or drug abuse patient.[facility] HospitalIn the event this information is protected by the Federal Confidentiality of Alcohol and Drug Abuse Patient Records regulations: The Federal rules restrict any use of the information to criminally investigate or prosecute any alcohol or drug abuse patient.[facility] HospitalIn the event this information is protected by the Federal Confidentiality of Alcohol and Drug Abuse Patient Records regulations: The Federal rules restrict any use of the information to criminally investigate or prosecute any alcohol or drug abuse patient.[facility] HospitalIn the event this information is protected by the Federal Confidentiality of Alcohol and Drug Abuse Patient Records regulations: The Federal rules restrict any use of the information to criminally investigate or prosecute any alcohol or drug abuse patient.[facility] HospitalIn the event this information is protected by the Federal Confidentiality of Alcohol and Drug Abuse Patient Records regulations: The Federal rules restrict any use of the information to criminally investigate or prosecute any alcohol or drug abuse patient.[facility] HospitalIn the event this information is protected by the Federal Confidentiality of Alcohol and Drug Abuse Patient Records regulations: The Federal rules restrict any use of the information to criminally investigate or prosecute any alcohol or drug abuse patient.[facility] HospitalIn the event this information is protected by the Federal Confidentiality of Alcohol and Drug Abuse Patient Records regulations: The Federal rules restrict any use of the information to criminally investigate or prosecute any alcohol or drug abuse patient.[facility] HospitalIn the event this information is protected by the Federal Confidentiality of Alcohol and Drug Abuse Patient Records regulations: The Federal rules restrict any use of the information to criminally investigate or prosecute any alcohol or drug abuse patient.[facility] HospitalIn the event this information is protected by the Federal Confidentiality of Alcohol and Drug Abuse Patient Records regulations: The Federal rules restrict any use of the information to criminally investigate or prosecute any alcohol or drug abuse patient.[facility] HospitalIn the event this information is protected by the Federal Confidentiality of Alcohol and Drug Abuse Patient Records regulations: The Federal rules restrict any use of the information to criminally investigate or prosecute any alcohol or drug abuse patient.[facility] HospitalIn the event this information is protected by the Federal Confidentiality of Alcohol and Drug Abuse Patient Records regulations: The Federal rules restrict any use of the information to criminally investigate or prosecute any alcohol or drug abuse patient.[facility] HospitalIn the event this information is protected by the Federal Confidentiality of Alcohol and Drug Abuse Patient Records regulations: The Federal rules restrict any use of the information to criminally investigate or prosecute any alcohol or drug abuse patient.[facility] HospitalIn the event this information is protected by the Federal Confidentiality of Alcohol and Drug Abuse Patient Records regulations: The Federal rules restrict any use of the information to criminally investigate or prosecute any alcohol or drug abuse patient.[facility] HospitalIn the event this information is protected by the Federal Confidentiality of Alcohol and Drug Abuse Patient Records regulations: The Federal rules restrict any use of the information to criminally investigate or prosecute any alcohol or drug abuse patient.[facility] HospitalIn the event this information is protected by the Federal Confidentiality of Alcohol and Drug Abuse Patient Records regulations: The Federal rules restrict any use of the information to criminally investigate or prosecute any alcohol or drug abuse patient.[facility] HospitalIn the event this information is protected by the Federal Confidentiality of Alcohol and Drug Abuse Patient Records regulations: The Federal rules restrict any use of the information to criminally investigate or prosecute any alcohol or drug abuse patient.[facility] HospitalIn the event this information is protected by the Federal Confidentiality of Alcohol and Drug Abuse Patient Records regulations: The Federal rules restrict any use of the information to criminally investigate or prosecute any alcohol or drug abuse patient.[facility] HospitalIn the event this information is protected by the Federal Confidentiality of Alcohol and Drug Abuse Patient Records regulations: The Federal rules restrict any use of the information to criminally investigate or prosecute any alcohol or drug abuse patient.[facility] HospitalIn the event this information is protected by the Federal Confidentiality of Alcohol and Drug Abuse Patient Records regulations: The Federal rules restrict any use of the information to criminally investigate or prosecute any alcohol or drug abuse patient.[facility] HospitalIn the event this information is protected by the Federal Confidentiality of Alcohol and Drug Abuse Patient Records regulations: The Federal rules restrict any use of the information to criminally investigate or prosecute any alcohol or drug abuse patient.[facility] HospitalIn the event this information is protected by the Federal Confidentiality of Alcohol and Drug Abuse Patient Records regulations: The Federal rules restrict any use of the information to criminally investigate or prosecute any alcohol or drug abuse patient.[facility] HospitalIn the event this information is protected by the Federal Confidentiality of Alcohol and Drug Abuse Patient Records regulations: The Federal rules restrict any use of the information to criminally investigate or prosecute any alcohol or drug abuse patient.[facility] HospitalIn the event this information is protected by the Federal Confidentiality of Alcohol and Drug Abuse Patient Records regulations: The Federal rules restrict any use of the information to criminally investigate or prosecute any alcohol or drug abuse patient.[facility] HospitalIn the event this information is protected by the Federal Confidentiality of Alcohol and Drug Abuse Patient Records regulations: The Federal rules restrict any use of the information to criminally investigate or prosecute any alcohol or drug abuse patient.[facility] HospitalIn the event this information is protected by the Federal Confidentiality of Alcohol and Drug Abuse Patient Records regulations: The Federal rules restrict any use of the information to criminally investigate or prosecute any alcohol or drug abuse patient.[facility] HospitalIn the event this information is protected by the Federal Confidentiality of Alcohol and Drug Abuse Patient Records regulations: The Federal rules restrict any use of the information to criminally investigate or prosecute any alcohol or drug abuse patient.[facility] HospitalIn the event this information is protected by the Federal Confidentiality of Alcohol and Drug Abuse Patient Records regulations: The Federal rules restrict any use of the information to criminally investigate or prosecute any alcohol or drug abuse patient.[facility] HospitalIn the event this information is protected by the Federal Confidentiality of Alcohol and Drug Abuse Patient Records regulations: The Federal rules restrict any use of the information to criminally investigate or prosecute any alcohol or drug abuse patient.[facility] HospitalIn the event this information is protected by the Federal Confidentiality of Alcohol and Drug Abuse Patient Records regulations: The Federal rules restrict any use of the information to criminally investigate or prosecute any alcohol or drug abuse patient.[facility] HospitalIn the event this information is protected by the Federal Confidentiality of Alcohol and Drug Abuse Patient Records regulations: The Federal rules restrict any use of the information to criminally investigate or prosecute any alcohol or drug abuse patient.[facility] HospitalIn the event this information is protected by the Federal Confidentiality of Alcohol and Drug Abuse Patient Records regulations: The Federal rules restrict any use of the information to criminally investigate or prosecute any alcohol or drug abuse patient.[facility] HospitalIn the event this information is protected by the Federal Confidentiality of Alcohol and Drug Abuse Patient Records regulations: The Federal rules restrict any use of the information to criminally investigate or prosecute any alcohol or drug abuse patient.[facility] HospitalIn the event this information is protected by the Federal Confidentiality of Alcohol and Drug Abuse Patient Records regulations: The Federal rules restrict any use of the information to criminally investigate or prosecute any alcohol or drug abuse patient.[facility] HospitalIn the event this information is protected by the Federal Confidentiality of Alcohol and Drug Abuse Patient Records regulations: The Federal rules restrict any use of the information to criminally investigate or prosecute any alcohol or drug abuse patient.[facility] HospitalIn the event this information is protected by the Federal Confidentiality of Alcohol and Drug Abuse Patient Records regulations: The Federal rules restrict any use of the information to criminally investigate or prosecute any alcohol or drug abuse patient.[facility] HospitalIn the event this information is protected by the Federal Confidentiality of Alcohol and Drug Abuse Patient Records regulations: The Federal rules restrict any use of the information to criminally investigate or prosecute any alcohol or drug abuse patient.[facility] HospitalIn the event this information is protected by the Federal Confidentiality of Alcohol and Drug Abuse Patient Records regulations: The Federal rules restrict any use of the information to criminally investigate or prosecute any alcohol or drug abuse patient.[facility] HospitalIn the event this information is protected by the Federal Confidentiality of Alcohol and Drug Abuse Patient Records regulations: The Federal rules restrict any use of the information to criminally investigate or prosecute any alcohol or drug abuse patient.[facility] HospitalIn the event this information is protected by the Federal Confidentiality of Alcohol and Drug Abuse Patient Records regulations: The Federal rules restrict any use of the information to criminally investigate or prosecute any alcohol or drug abuse patient.[facility] HospitalIn the event this information is protected by the Federal Confidentiality of Alcohol and Drug Abuse Patient Records regulations: The Federal rules restrict any use of the information to criminally investigate or prosecute any alcohol or drug abuse patient.[facility] HospitalIn the event this information is protected by the Federal Confidentiality of Alcohol and Drug Abuse Patient Records regulations: The Federal rules restrict any use of the information to criminally investigate or prosecute any alcohol or drug abuse patient.[facility] HospitalIn the event this information is protected by the Federal Confidentiality of Alcohol and Drug Abuse Patient Records regulations: The Federal rules restrict any use of the information to criminally investigate or prosecute any alcohol or drug abuse patient.[facility] HospitalIn the event this information is protected by the Federal Confidentiality of Alcohol and Drug Abuse Patient Records regulations: The Federal rules restrict any use of the information to criminally investigate or prosecute any alcohol or drug abuse patient.[facility] HospitalIn the event this information is protected by the Federal Confidentiality of Alcohol and Drug Abuse Patient Records regulations: The Federal rules restrict any use of the information to criminally investigate or prosecute any alcohol or drug abuse patient.[facility] HospitalIn the event this information is protected by the Federal Confidentiality of Alcohol and Drug Abuse Patient Records regulations: The Federal rules restrict any use of the information to criminally investigate or prosecute any alcohol or drug abuse patient.[facility] HospitalIn the event this information is protected by the Federal Confidentiality of Alcohol and Drug Abuse Patient Records regulations: The Federal rules restrict any use of the information to criminally investigate or prosecute any alcohol or drug abuse patient.[facility] HospitalIn the event this information is protected by the Federal Confidentiality of Alcohol and Drug Abuse Patient Records regulations: The Federal rules restrict any use of the information to criminally investigate or prosecute any alcohol or drug abuse patient.[facility] HospitalIn the event this information is protected by the Federal Confidentiality of Alcohol and Drug Abuse Patient Records regulations: The Federal rules restrict any use of the information to criminally investigate or prosecute any alcohol or drug abuse patient.[facility] HospitalIn the event this information is protected by the Federal Confidentiality of Alcohol and Drug Abuse Patient Records regulations: The Federal rules restrict any use of the information to criminally investigate or prosecute any alcohol or drug abuse patient.[facility] HospitalIn the event this information is protected by the Federal Confidentiality of Alcohol and Drug Abuse Patient Records regulations: The Federal rules restrict any use of the information to criminally investigate or prosecute any alcohol or drug abuse patient.[facility] HospitalIn the event this information is protected by the Federal Confidentiality of Alcohol and Drug Abuse Patient Records regulations: The Federal rules restrict any use of the information to criminally investigate or prosecute any alcohol or drug abuse patient.[facility] HospitalIn the event this information is protected by the Federal Confidentiality of Alcohol and Drug Abuse Patient Records regulations: The Federal rules restrict any use of the information to criminally investigate or prosecute any alcohol or drug abuse patient.[facility] HospitalIn the event this information is protected by the Federal Confidentiality of Alcohol and Drug Abuse Patient Records regulations: The Federal rules restrict any use of the information to criminally investigate or prosecute any alcohol or drug abuse patient.[facility] HospitalIn the event this information is protected by the Federal Confidentiality of Alcohol and Drug Abuse Patient Records regulations: The Federal rules restrict any use of the information to criminally investigate or prosecute any alcohol or drug abuse patient.[facility] HospitalIn the event this information is protected by the Federal Confidentiality of Alcohol and Drug Abuse Patient Records regulations: The Federal rules restrict any use of the information to criminally investigate or prosecute any alcohol or drug abuse patient.[facility] HospitalIn the event this information is protected by the Federal Confidentiality of Alcohol and Drug Abuse Patient Records regulations: The Federal rules restrict any use of the information to criminally investigate or prosecute any alcohol or drug abuse patient.[facility] HospitalIn the event this information is protected by the Federal Confidentiality of Alcohol and Drug Abuse Patient Records regulations: The Federal rules restrict any use of the information to criminally investigate or prosecute any alcohol or drug abuse patient.[facility] HospitalIn the event this information is protected by the Federal Confidentiality of Alcohol and Drug Abuse Patient Records regulations: The Federal rules restrict any use of the information to criminally investigate or prosecute any alcohol or drug abuse patient.[facility] HospitalIn the event this information is protected by the Federal Confidentiality of Alcohol and Drug Abuse Patient Records regulations: The Federal rules restrict any use of the information to criminally investigate or prosecute any alcohol or drug abuse patient.[facility] HospitalIn the event this information is protected by the Federal Confidentiality of Alcohol and Drug Abuse Patient Records regulations: The Federal rules restrict any use of the information to criminally investigate or prosecute any alcohol or drug abuse patient.[facility] HospitalIn the event this information is protected by the Federal Confidentiality of Alcohol and Drug Abuse Patient Records regulations: The Federal rules restrict any use of the information to criminally investigate or prosecute any alcohol or drug abuse patient.[facility] HospitalIn the event this information is protected by the Federal Confidentiality of Alcohol and Drug Abuse Patient Records regulations: The Federal rules restrict any use of the information to criminally investigate or prosecute any alcohol or drug abuse patient.[facility] HospitalIn the event this information is protected by the Federal Confidentiality of Alcohol and Drug Abuse Patient Records regulations: The Federal rules restrict any use of the information to criminally investigate or prosecute any alcohol or drug abuse patient.[facility] HospitalIn the event this information is protected by the Federal Confidentiality of Alcohol and Drug Abuse Patient Records regulations: The Federal rules restrict any use of the information to criminally investigate or prosecute any alcohol or drug abuse patient.[facility] HospitalIn the event this information is protected by the Federal Confidentiality of Alcohol and Drug Abuse Patient Records regulations: The Federal rules restrict any use of the information to criminally investigate or prosecute any alcohol or drug abuse patient.[facility] HospitalIn the event this information is protected by the Federal Confidentiality of Alcohol and Drug Abuse Patient Records regulations: The Federal rules restrict any use of the information to criminally investigate or prosecute any alcohol or drug abuse patient.[facility] HospitalIn the event this information is protected by the Federal Confidentiality of Alcohol and Drug Abuse Patient Records regulations: The Federal rules restrict any use of the information to criminally investigate or prosecute any alcohol or drug abuse patient.[facility] HospitalIn the event this information is protected by the Federal Confidentiality of Alcohol and Drug Abuse Patient Records regulations: The Federal rules restrict any use of the information to criminally investigate or prosecute any alcohol or drug abuse patient.[facility] HospitalIn the event this information is protected by the Federal Confidentiality of Alcohol and Drug Abuse Patient Records regulations: The Federal rules restrict any use of the information to criminally investigate or prosecute any alcohol or drug abuse patient.[facility] HospitalIn the event this information is protected by the Federal Confidentiality of Alcohol and Drug Abuse Patient Records regulations: The Federal rules restrict any use of the information to criminally investigate or prosecute any alcohol or drug abuse patient.[facility] HospitalIn the event this information is protected by the Federal Confidentiality of Alcohol and Drug Abuse Patient Records regulations: The Federal rules restrict any use of the information to criminally investigate or prosecute any alcohol or drug abuse patient.[facility] HospitalIn the event this information is protected by the Federal Confidentiality of Alcohol and Drug Abuse Patient Records regulations: The Federal rules restrict any use of the information to criminally investigate or prosecute any alcohol or drug abuse patient.[facility] HospitalIn the event this information is protected by the Federal Confidentiality of Alcohol and Drug Abuse Patient Records regulations: The Federal rules restrict any use of the information to criminally investigate or prosecute any alcohol or drug abuse patient.[facility] HospitalIn the event this information is protected by the Federal Confidentiality of Alcohol and Drug Abuse Patient Records regulations: The Federal rules restrict any use of the information to criminally investigate or prosecute any alcohol or drug abuse patient.[facility] HospitalIn the event this information is protected by the Federal Confidentiality of Alcohol and Drug Abuse Patient Records regulations: The Federal rules restrict any use of the information to criminally investigate or prosecute any alcohol or drug abuse patient.[facility] HospitalIn the event this information is protected by the Federal Confidentiality of Alcohol and Drug Abuse Patient Records regulations: The Federal rules restrict any use of the information to criminally investigate or prosecute any alcohol or drug abuse patient.[facility] HospitalIn the event this information is protected by the Federal Confidentiality of Alcohol and Drug Abuse Patient Records regulations: The Federal rules restrict any use of the information to criminally investigate or prosecute any alcohol or drug abuse patient.[facility] HospitalIn the event this information is protected by the Federal Confidentiality of Alcohol and Drug Abuse Patient Records regulations: The Federal rules restrict any use of the information to criminally investigate or prosecute any alcohol or drug abuse patient.[facility] HospitalIn the event this information is protected by the Federal Confidentiality of Alcohol and Drug Abuse Patient Records regulations: The Federal rules restrict any use of the information to criminally investigate or prosecute any alcohol or drug abuse patient.[facility] HospitalIn the event this information is protected by the Federal Confidentiality of Alcohol and Drug Abuse Patient Records regulations: The Federal rules restrict any use of the information to criminally investigate or prosecute any alcohol or drug abuse patient.[facility] HospitalIn the event this information is protected by the Federal Confidentiality of Alcohol and Drug Abuse Patient Records regulations: The Federal rules restrict any use of the information to criminally investigate or prosecute any alcohol or drug abuse patient.[facility] HospitalIn the event this information is protected by the Federal Confidentiality of Alcohol and Drug Abuse Patient Records regulations: The Federal rules restrict any use of the information to criminally investigate or prosecute any alcohol or drug abuse patient.[facility] HospitalIn the event this information is protected by the Federal Confidentiality of Alcohol and Drug Abuse Patient Records regulations: The Federal rules restrict any use of the information to criminally investigate or prosecute any alcohol or drug abuse patient.[facility] HospitalIn the event this information is protected by the Federal Confidentiality of Alcohol and Drug Abuse Patient Records regulations: The Federal rules restrict any use of the information to criminally investigate or prosecute any alcohol or drug abuse patient.[facility] HospitalIn the event this information is protected by the Federal Confidentiality of Alcohol and Drug Abuse Patient Records regulations: The Federal rules restrict any use of the information to criminally investigate or prosecute any alcohol or drug abuse patient.[facility] HospitalIn the event this information is protected by the Federal Confidentiality of Alcohol and Drug Abuse Patient Records regulations: The Federal rules restrict any use of the information to criminally investigate or prosecute any alcohol or drug abuse patient.[facility] Reason for Visit (unrecogniz ed section and content) Reason Comments Lymphoma Specialty Diagnoses / Procedures Referred By Contac t Referred To Contact Hematology / HEMATOLOGY/ONCOLOGY Diagnoses Follow-up exam 3 Month Lab Follow Up 12/24-R/S From 02/09 Called Spoke With Pt Regarding This Appt Procedures OFFICE/OUTPATIENT ESTABLISHED HIGH MDM 40 MIN EST PATIENT Self Ruperto Ledezma MD [address] [place] [address] [place] [address] Phone: tel: fax: Referral ID Status Reason Start Date Expiration Date V isits Requested Visits Authorized [id number] Authorized 02/19/2024 02/17/2025 99 99 Reason Comments Hospital F/U Specialty Diagnoses / Procedures Referred By Contac t Referred To Contact Pulmonary Disease / PULMONARY MEDICINE Diagnoses Follow up Procedures RI EST PULM GENERAL Self 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, 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[employer] [address] [place] [address] Referral ID Status Reason Start Date Expiration Date V isits Requested Visits Authorized [id number] Authorized 12/16/2023 02/18/2024 99 99 Reason Comments ED Follow-up Specialty Diagnoses / Procedures Referred By Contac t Referred To Contact [facility] [place] / PULMONARY MEDICINE Diagnoses Pneumonia Pneumonia, [facility] Follow up, discharged on 04/04 Procedures RI [facility] PULM GENERAL Bee Vail MD [address] [place] [address] [place] [address] Carole Ruano, 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[employer] [address] [place] [address] Referral ID Status Reason Start Date Expiration Date V isits Requested Visits Authorized [id number] Authorized 04/18/2023 02/18/2024 99 99 Reason Comments 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 Diagnoses / Procedures Referred By Contac t Referred To Contact Hematology / HEMATOLOGY/ONCOLOGY Diagnoses 8 week lab Procedures EST PATIENT Bee Vail MD [address] [place] [address] Ruperto Ledezma MD [address] [place] [address] [place] [address] Referral ID Status Reason Start Date Expiration Date Visits Re quested Visits Authorized [id number] Closed 04/16/2023 02/18/2024 1 1 Reason Comments Established Patient Pembro and follow up Specialty Diagnoses / Procedures Referred By Contac t Referred To Contact Hematology/Oncology / HEMATOLOGY/ONCOLOGY Diagnoses OV ; TX after Procedures EST PATIENT Lamin Stevenson Edwin [address] [place] [address] Sylvia Mancilla APRN.[facility] [address] [place] [address] Referral ID Status Reason Start Date Expiration Date V isits Requested Visits Authorized [id number] Authorized 10/25/2021 01/22/2022 99 99 Reason Comments Chemotherapy Treatment keytruda Specialty Diagnoses / Procedures Referred By Contac t Referred To Contact 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) [place] [address] [facility] [place] [address] Delfino [facility] [place]j [address] [place] [address] Reason Onset Date Comments Refill Request 2021 Reason Comments LESION, SKIN Reason Comments Care Coordination Pall med referral Reason Onset Date Comments Refill Request 08/14/2021 Reason Onset Date Comments Refill Request 08/30/2021 Reason Onset Date Comments Refill Request 09/02/2021 Reason Onset Date Comments Refill Request 09/03/2021 Reason Comments Derm Problem Hs lesions Reason Onset Date Comments Refill Request 09/11/2021 Reason Comments Cosmetologist Apprentice - ED Follow Up Reason Onset Date Comments Refill Request 10/04/2021 Reason Onset Date Comments Refill Request 10/16/2021 Reason Comments Established Patient Pembro infusion Specialty Diagnoses / Procedures Referred By [facility] Referred To Contact Hematology/Oncology / HEMATOLOGY/ONCOLOGY Diagnoses OV ; TX after Procedures EST PATIENT Stevenson Lamin B [address] [place] [address] Sylvia Mancilla APRN.FORM RAISER [address] [place] [address] Reason Comments Follow Up Pain Insomnia Reason Onset Date Comments Refill Request 10/31/2021 Reason Onset Date Comments Refill Request 11/07/2021 Reason Comments Orders Reason Comments Established Patient Specialty Diagnoses / Procedures Referred By [facility] Referred To Contact 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) Procedures [place] [address] [place] [address] Delfino [place]j [address] [place] [address] Referral ID Status Reason Start Date Expiration Date V isits Requested Visits Authorized [id number] Pending Review 12/11/2019 04/24/2022 99 99 Reason Onset Date Comments Refill Request 12/04/2021 Reason Comments Acne Specialty Diagnoses / Procedures Referred By Contac t Referred To Contact Dermatology / DERMATOLOGY Diagnoses ACNE Procedures EST DPSI GENERAL Self Nova Leija, 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FORM RAISER [address] [place] [address] Referral ID Status Reason Start Date Expiration Date V isits Requested Visits Authorized [id number] Closed Financial Clearance Required - OON Payor [...] petscan move 02/28 to 03/07 1130 w/ Hernandez and infusion after Procedures [place] [address] [place] [address] [place] [address] [place] [address] Referral ID Status Reason Start Date Expiration Date Visits Re quested Visits Authorized [id number] Closed 02/27/2022 03/30/2022 1 1 Reason Onset Date Comments Refill Request 03/15/2022 Reason Comments Cancer Reason Comments Patient Education Reason Comments Chemotherapy Treatment Keytruda Referral ID Status Reason Start Date Expiration Date V isits Requested Visits Authorized [id number] Authorized 12/11/2019 10/26/2022 99 99 Reason Onset [...] MIN EST PATIENT Bee Vail MD [address] [facility] [place] [address] [place] [address] [place] [address] Referral ID Status Reason Start Date Expiration Date V isits Requested Visits Authorized [id number] Authorized 05/23/2022 05/24/2023 99 99 Reason Onset [...] MIN EST PATIENT Bee Vail MD [address] [facility] [address] [place] [address] [place] [address] Reason Comments Dyspnea On Exertion Simple chronic [...] ESTABLISHED HIGH MDM 40-54 MIN RI EST PUL Bee Galvan MD [address] [facility] [address] Don Chan, LORY.FORM RAISER [address] [place] [address] Referral ID Status Reason Start Date Expiration Date Visits Re quested Visits Authorized [id number] Closed 06/26/2022 06/27/2023 1 1 Reason Comments [...] ESTABLISHED HIGH MDM 40-54 MIN RI EST PUL Bee Galvan MD [address] [place] [address] Don Chan, LORY.FORM RAISER [address] [place] [address] Referral ID Status Reason Start Date Expiration Date V isits Requested Visits Authorized [id number] Authorized 05/22/2022 05/23/2023 99 99 Specialty Diagnoses / Procedures Referred By Contac t Referred To Contact CT IMAGING Diagnoses Acute cough Procedures CT CHEST WO IVCON DIAGNOSTIC COMPUTED TOMOGRAPHY THORAX W/[place] [address] [place] [address] Ct Imaging Referral ID Status Reason Start Date Expiration Date V isits Requested Visits Authorized [id number] Closed Auto-Generate d Referral 05/22/2022 06/21/2023 1 [...] NEW PATIENT MED ONC Bee Vail MD [address] [facility] [place] [address] Ruperto Ledezma MD [address] [facility] [address] Referral ID Status Reason Start Date Expiration Date Visits Re quested Visits Authorized [id number] Closed 12/26/2022 12/27/2023 1 1 Reason Comments Results Reason Onset Date Comments Refill Request 01/06/2023 Reason Comments Spirometry Specialty Diagnoses / Procedures Referred By Contac t Referred To Contact [facility] Diagnoses Chronic cough Procedures LUNG DIFFUSION CAPACITY (DLCO) DIFFUSING CAPACITY Don Chan, FORM RAISER [address] [facility] [place] [address] [facility] [address] [place] [address] Referral ID Status Reason Start Date Expiration Date V isits Requested Visits Authorized [id number] Closed Auto-Generate d Referral 01/08/2023 02/17/2023 1 1 Specialty Diagnoses / Procedures Referred By Contac t Referred To Contact [facility] Diagnoses Bronchitis Procedures NITRIC OXIDE, EXHALED NITRIC OXIDE GAS DETERMINATION Don Chan, LORY.FORM RAISER [address] [facility] [place] [address] [facility] [address] [place] [address] Referral ID Status Reason Start Date Expiration Date V isits Requested Visits Authorized [id number] Closed Auto-Generate d Referral 01/08/2023 02/17/2023 1 [...] ESTABLISHED SF MDM 10 MIN RI EST PUL GENERAL SukhwinderDon olpes, 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FORM RAISER [address] [facility] [place] [address] 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FORM RAISER [address] [facility] [place] [address] Referral ID Status Reason Start Date Expiration Date Visits Re quested Visits Authorized [id number] Closed 03/12/2023 02/18/2024 1 1 Specialty Diagnoses / Procedures Referred By Contac t Referred To Contact [facility] Diagnoses Bronchitis, not specified as acute or chronic Procedures SPIROMETRY - BASELINE AND POST DILATOR BRNCDILAT RSPSE SPMTRY PRE&POST-BRNCDILAT ADMN Don Chan, 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FORM RAISER [address] [facility] [place] [address] [facility] [address] [place] [address] Referral ID Status Reason Start Date Expiration Date V isits Requested Visits Authorized [id number] Closed Auto-Generate d Referral 02/14/2023 03/15/2024 1 1 Reason Comments Med Change Request Reason Comments Lab Orders Reason Onset Date Comments Refill Request 04/08/2023 Reason Comments Lymphoma Follow up Specialty Diagnoses / Procedures Referred By Contac t Referred To Contact [facility] / PULMONARY MEDICINE Diagnoses Pneumonia Pneumonia, [facility] Follow up, discharged on 04/04 Procedures [facility] PUL GENERAL Bee Vail MD [address] [facility] [place] [address] Carole Ruano, 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FORM RAISER [address] [place] [address] Reason Onset Date Comments Refill Request 05/12/2023 Reason Comments Throat Problem Specialty Diagnoses / Procedures Referred By Contac t Referred To Contact Ent - Otolaryngology Diagnoses Dysphagia, unspecified type Hoarseness Procedures CONSULT TO ENT OFFICE/OUTPATIENT NEW HIGH MDM 60 MINUTES 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, OLRY.FORM RAISER [address] [facility] [place] [place] [address] Referral ID Status Reason Start Date Expiration Date V isits Requested Visits Authorized [id number] Closed PCP Requested Referral 03/28/2023 03/27/2024 1 [...] be added onto Dr. Carver's schedule at [place] on Saturday06/28/23 at 11 am (it is a hospital day for her but adding her on per Dr. Carver). Dr. Carver would also like her put on the cancellation list for a sooner appt. Procedures OFFICE/OUTPATIENT ESTABLISHED SF MDM 10 MIN OFFICE/OUTPATIENT ESTABLISHED LOW MDM 20 MIN OFFICE/OUTPATIENT ESTABLISHED MOD MDM 30 MIN OFFICE/OUTPATIENT ESTABLISHED HIGH MDM 40 MIN [facility] PUL GENERAL Bee Vail MD [address] [facility] [place] [address] [place] [address] [place] [address] Referral ID Status Reason Start Date Expiration Date V isits Requested Visits Authorized [id number] Authorized 06/14/2023 02/18/2024 99 9 Reason Comments Speech Instrumental Swallow Eval Speech Discharge Specialty Diagnoses / Procedures Referred By Contac t Referred To Contact XR IMAGING Diagnoses Dysphagia, unspecified type Procedures XR MODIFIED BARIUM SWALLOW W SPEECH THERAPY RADIOLOGIC EXAM SWALLOW FUNCTION CONTRAST STUDY Anil Franco PA-C [address] [place] [address] [place] [address] Referral ID Status Reason Start Date Expiration Date V isits Requested Visits Authorized [id number] Closed Auto-Generate d Referral 05/22/2023 06/20/2024 1 1 Reason Comments Radio GI Main HB6 Specialty Diagnoses / Procedures Referred By Contac t Referred To Contact XR IMAGING Diagnoses Dysphagia, unspecified type Gastroesophageal reflux disease, unspecified whether esophagitis present Procedures XR ESOPHAGRAM RADIOLOGIC EXAM ESOPHAGUS SINGLE CONTRAST STUDY Anil Franco PA-C [address] [place] [id number] [place] [address] Referral ID Status Reason Start Date Expiration Date V isits Requested Visits Authorized [id number] Closed Auto-Generate d Referral 05/22/2023 06/20/2024 1 [...] MDM 60 MINUTES JARAD [employer] Sherly Hansen PA-C [facility] [address] [place] [address] Sherly Hansen PA-C [address] [place] [address] Referral ID Status Reason Start Date Expiration Date Visits Re quested Visits Authorized [id number] Closed 07/31/2023 02/18/2024 1 1 Reason Comments Follow Up Specialty Diagnoses / Procedures Referred By Contact Referred To Contact Ent - Otolaryngology / ENT-OTOLARYNGOLOGY Diagnoses Return for Follow up after MBS, XR esophagram; sooner if clinically indicated.. Procedures EST HNI PATIENT Anil Franco PA-C [address] [place] [address] Anil Franco PA-C [address] [place] [address] Referral ID Status Reason Start Date Expiration Date Visits Re quested Visits Authorized [id number] Closed 07/17/2023 02/18/2024 1 1 Reason Onset Date Comments Refill Request 09/30/2023 Reason Comments New Patient Evaluation PsA Specialty Diagnoses / Procedures Referred By Contac t Referred To Contact Rheumatology Diagnoses Psoriatic arthritis (HCC) Procedures CONSULT TO RHEUM/IMMUN DISEASE OFFICE/OUTPATIENT NEW HIGH MDM 60-74 MINUTES Irene Han, 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FORM RAISER [address] [place] [address] [address] [address] Referral ID Status Reason Start Date Expiration Date Visits Requested Visits Authorized [id number] Authorized PCP Requested Referral 06/19/2023 02/18/2024 99 99 Specialty Diagnoses / Procedures Referred By Contac t Referred To Contact [facility] Diagnoses Pulmonary hypertension (HCC) Procedures OXIMETRY WITH AMBULATION NONINVASIVE EAR/PULSE OXIMETRY Carole Morales, 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FORM RAISER [address] [place] [address] [facility] [address] [place] [address] Referral ID Status Reason Start Date Expiration Date V isits Requested Visits Authorized [id number] Closed Auto-Generate d Referral 08/06/2023 09/04/2024 1 1 Reason Comments Follow Up Reason Comments Radiology NM Specialty Diagnoses / Procedures Referred By Contac t Referred To Contact MOLECULAR & FUNCTIONAL IMAGING 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) Procedures NM PET/CT SKULL-THIGH SUBSEQUENT PET IMAGING CT ATTENUATION [place] [address] [place] [address] Molecular [facility] Functional [facility] [address] [place], [place] [address] Referral ID Status Reason Start Date Expiration Date V isits Requested Visits Authorized [id number] Closed Auto-Generate d Referral 08/22/2022 09/21/2023 1 1 Specialty Diagnoses / Procedures Referred By Contac t Referred To Contact MOLECULAR & FUNCTIONAL IMAGING Diagnoses 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 Referred To Contact Hematology / HEMATOLOGY/ONCOLOGY Diagnoses 8 week lab Procedures EST PATIENT Bee Vail MD [address] [place] [phone] Ruperto Ledezma MD [address] [place] [address] [place] [address] Referral ID Status Reason Start Date Expiration Date V isits Requested Visits Authorized [id number] Closed Auto-Generate d Referral 11/15/2021 12/15/2022 1 1 Reason Onset Date Comments Refill Request 11/12/2023 Specialty Diagnoses / Procedures 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) Procedures NM PET/CT SKULL-THIGH SUBSEQUENT PET IMAGING CT ATTENUATION SK[place] [address] [place] [id number] [facility] [address] [place] [address] Referral ID Status Reason Start Date Expiration Date V isits Requested Visits Authorized [id number] Closed Auto-Generate d Referral 08/16/2021 09/15/2022 1 1 Specialty Diagnoses / Procedures Referred By Contac t Referred To Contact MOLECULAR & FUNCTIONAL IMAGING Diagnoses Hodgkin lymphoma, unspecified Hodgkin lymphoma type, unspecified body region (HCC) 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) Procedures NM PET/CT SKULL-THIGH SUBSEQUENT PET IMAGING CT ATTENUATION [place] [address] [place] [address] Molecular [facility] Functional [facility] [address] [place] [address] Referral ID Status Reason Start Date Expiration Date V isits Requested Visits Authorized [id number] Closed Auto-Generate d Referral 06/14/2021 07/14/2022 1 1 Specialty Diagnoses / Procedures Referred By Contac t Referred To Contact MOLECULAR & FUNCTIONAL IMAGING Diagnoses Hodgkin lymphoma, unspecified Hodgkin lymphoma type, unspecified body region (HCC) Procedures NM PET/CT SKULL-THIGH SUBSEQUENT TUMOR IMAGING PET W/CONC CT SKULL-THIGH Sylvia Mancilla, 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FORM RAISER [address] [place] [address] Molecular [facility] Functional [facility] [address] [place] [address] Referral ID Status Reason Start Date Expiration Date V isits Requested Visits Authorized [id number] Closed Auto-Generate d Referral 01/25/2021 02/24/2022 1 1 Reason Comments Hospital F/U Was seen at [facility], pneumonia. Specialty Diagnoses / Procedures Referred By Contac t Referred To Contact Pulmonary Disease / PULMONARY MEDICINE Diagnoses pneumonia Procedures OFFICE/OUTPATIENT ESTABLISHED HIGH MDM 40 MIN OFFICE/OUTPATIENT NEW HIGH MDM 60 MINUTES MT EST PULM GENERAL 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FORM RAISER [address] [place] [address] 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, 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FORM RAISER [address] [facility] [place] [address] Referral ID Status Reason Start Date Expiration Date Visits Re quested Visits Authorized [id number] Closed 11/21/2023 02/18/2024 1 1 Reason Comments [...] CT ATTENUATION SKULL BASE MID-THIGH Ellyn Lopez, 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FORM RAISER [address] [facility] [place] [address] Molecular [facility] [address] [place] [address] Referral ID Status Reason Start Date Expiration Date V isits Requested Visits Authorized [id number] Closed Auto-Generate d Referral 11/11/2023 12/10/2024 1 [...] 40 MIN PAIN RE Bee Gaines MD [address] [facility] [place] [address] Kodi Pantoja MD [address] [place] [address] Referral ID Status Reason Start Date Expiration Date Visits Re quested Visits Authorized [id number] Closed 11/28/2023 02/18/2024 1 1 Reason Comments New Patient Specialty Diagnoses / Procedures Referred By Contac t Referred To Contact Cardiology Diagnoses Pleural effusion, left Pulmonary hypertension (HCC) Procedures CONSULT TO CARDIOLOGY OFFICE/OUTPATIENT NEW HIGH MDM 60 MINUTES Carole Ruano, LORY.FORM RAISER [address] [place] [address] Referral ID Status Reason Start Date Expiration Date V isits Requested Visits Authorized [id number] Closed PCP Requested Referral 06/14/2023 06/13/2024 1 1 Reason Comments follow up Specialty Diagnoses / Procedures Referred By Contac t Referred To Contact Pulmonary and Critical Care Medicine / PULMONARY MEDICINE Diagnoses Follow-up exam ok per Dr. Carver Ms. Weller also needs to be added onto Dr. Carver's schedule at [place] on Saturday06/28/23 at 11 am (it is a hospital day for her but adding her on per Dr. Carver). Dr. Carver would also like her put on the cancellation list for a sooner appt. Procedures OFFICE/OUTPATIENT ESTABLISHED SF MDM 10 MIN OFFICE/OUTPATIENT ESTABLISHED LOW MDM 20 MIN OFFICE/OUTPATIENT ESTABLISHED MOD MDM 30 MIN OFFICE/OUTPATIENT ESTABLISHED HIGH MDM 40 MIN [facility] PUL GENERAL Bee Vail MD [address] [facility] [place] [address] [place] [address] [place] [address] Reason Comments Radiology NM Appointment reminder . Reason Onset Date Comments Refill Request 01/13/2024 Specialty Diagnoses / Procedures Referred By Contac t Referred To Contact [facility] Diagnoses Acute hypoxic respiratory failure (HCC) Bronchiectasis without complication (HCC) Restrictive lung disease Procedures LUNG DIFFUSION CAPACITY (DLCO) DIFFUSING CAPACITY 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, 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FORM RAISER [address] [place] [address] [facility] [address] [place] [address] Referral ID Status Reason Start Date Expiration Date V isits Requested Visits Authorized [id number] Closed Auto-Generate d Referral 12/25/2023 01/23/2025 1 1 Specialty Diagnoses / Procedures Referred By Contac t Referred To [facility] Diagnoses Acute hypoxic respiratory failure (HCC) Bronchiectasis without complication (HCC) Restrictive lung disease Procedures SPIROMETRY WITH DILATOR IF OBSTRUCTED BRNCDILAT RSPSE SPMTRY PRE&POST-BRNCDILAT ADMN 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, 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FORM RAISER [address] [place] [address] [address] Referral ID Status Reason Start Date Expiration Date V isits Requested Visits Authorized [id number] Closed Auto-Generate d Referral 12/25/2023 01/23/2025 1 1 Specialty Diagnoses / Procedures Referred By Contac t Referred To [facility] Diagnoses Acute hypoxic respiratory failure (HCC) Procedures OXIMETRY WITH AMBULATION NONINVASIVE EAR/PULSE OXIMETRY MULTIPLE DETER 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, 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FORM RAISER [address] [place] [address] [address] Referral ID Status Reason Start Date Expiration Date V isits Requested Visits Authorized [id number] Closed Auto-Generate d Referral 01/04/2024 02/01/2025 1 1 Specialty Diagnoses / Procedures Referred By Contac t Referred To [facility] Diagnoses Acute hypoxic respiratory failure (HCC) Bronchiectasis without complication (HCC) Restrictive lung disease Procedures SIX MINUTE WALK CARDIOPULMONARY EXERCISE STRESS 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, 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FORM RAISER [address] [place] [address] [address] Referral ID Status Reason Start Date Expiration Date V isits Requested Visits Authorized [id number] Closed Auto-Generate d Referral 12/25/2023 01/23/2025 1 1 Reason Comments Consult Pt. Of Dr. Carver for pulmonary hypertension consult Specialty Diagnoses / Procedures Referred By Contac t Referred To Contact Diagnoses Pulmonary hypertension (HCC) Procedures CONSULT TO PULMONARY HYPERTENSION CLINIC OFFICE/OUTPATIENT NEW HIGH MDM 60 [place] [address] [place] [address] Referral ID Status Reason Start Date Expiration Date V isits Requested Visits Authorized [id number] Closed PCP Requested Referral 01/06/2024 01/05/2025 1 [...] Reason Onset Date Comments Refill Request 06/25/2024 Reason Onset Date Comments Refill Request 07/28/2024 Reason Comments Hospital Follow-up Reason Comments Lymphoma Specialty Diagnoses / Procedures Referred By Contac t Referred To Contact Hematology / HEMATOLOGY/ONCOLOGY Diagnoses Follow-up exam 3 Month Lab Follow Up 12/24-R/S From 02/09 Called Spoke With Pt Regarding This Appt Procedures OFFICE/OUTPATIENT ESTABLISHED HIGH MDM 40 MIN EST PATIENT Self Ruperto Ledezma MD [address] [place] [address] [place] [address] Phone: tel: fax: Reason Comments Med Refill Reason Comments Well Women Visit Reason Onset Date Comments Med Refill 08/12/2024 Reason Onset Date Comments Med Refill 09/02/2024 Reason Comments possible shingles Reason Onset Date Comments Med Refill 09/28/2024 Reason Onset Date Comments Refill Request 09/28/2024 Reason Onset Date Comments Med Refill 10/05/2024 Reason Onset Date Comments Refill Request 10/27/2024 Reason Onset Date Comments Med Refill 11/13/2024 Care Teams (unrecognized sec tion and content) Script Girl Relationship Specialty Start Date End Date Bee Vail MD PCP - General Internal Medicine 05/07/16 Cyn Hernandez [place] [id number] [place] [address] Consulting Hematology/Oncology 01/28/12 Mar[place], [place] [address] [place] [address] Specialty Cosmetologist Apprentice Hematology/Oncology 11/09/19 [place] [address] [place] [address] Hematology/Oncology 03/30/21 Script Girl Relationship Specialty Start Date End Date Bee Vail MD PCP - General Internal Medicine 05/07/16 [place] [address] [place] [address] Consulting Hematology/Oncology 01/28/12 Marilyn [place] [id number] [place] [address] Specialty Cosmetologist Apprentice Hematology/Oncology 11/09/19 [place] [address] [place] [address] Hematology/Oncology 03/30/21 Script Girl Relationship Specialty Start Date End Date Bee Vail MD PCP - General Internal Medicine 05/07/16 [place] [address] [place] [address] Consulting Hematology/Oncology 01/28/12 Marilyn Hughes, RN [id number] [place] [address]2765 Specialty Cosmetologist Apprentice Hematology/Oncology 11/09/19 Cyn Hernandez MD [id number] [place] [address] 93964 Hematology/Oncology 03/30/21 Script Girl Relationship Specialty Start Date End Date Bee Vail MD PCP - General Internal Medicine 05/07/16 [place] [address] [place] [address] Consulting Hematology/Oncology 01/28/12 Marilyn Hughes, RN [id number] [place] [address] 63848 Specialty Cosmetologist Apprentice Hematology/Oncology 11/09/19 [place] [address] [place] [address] Hematology/Oncology 03/30/21 Script Girl Relationship Specialty Start Date End Date Bee Vail MD PCP - General Internal Medicine 05/07/16 [place] [address] [place] [address] Consulting Hematology/Oncology 01/28/12 [place] [address] [place] [address] Specialty Cosmetologist Apprentice Hematology/Oncology 11/09/19 [place] [address] [place] [address] Hematology/Oncology 03/30/21 Script Girl Relationship Specialty Start Date End Date Bee Vail MD PCP - General Internal Medicine 05/07/16 [place] [address] [place] [address] Consulting Hematology/Oncology 01/28/12 Marilyn Hughes RN [id number] [place] [address] 85705 Specialty Cosmetologist Apprentice Hematology/Oncology 11/09/19 [place] [address] [place] [address] Hematology/Oncology 03/30/21 Script Girl Relationship Specialty Start Date End Date Bee Vail MD PCP - General Internal Medicine 05/07/16 [place] [address] [place] [address] Consulting Hematology/Oncology 01/28/12 [place] [address] [place] [address] Specialty Cosmetologist Apprentice Hematology/Oncology 11/09/19 [place] [address] [place] [address] Hematology/Oncology 03/30/21 Kristina Pete, MAE Specialty Cosmetologist Apprentice HOSPICE & PALLIATIVE MEDICINE 05/22/21 Script Girl Relationship Specialty Start Date End Date Bee Vail MD PCP - General Internal Medicine 05/07/16 Cyn Hernandez MD [id number] [place] [address]39 Consulting Hematology/Oncology 01/28/12 Marilyn Hughes, RN [id number] [place] [address] 38309 Specialty Cosmetologist Apprentice Hematology/Oncology 11/09/19 Cyn Hernandez MD [id number] [place] [address] 31536 Hematology/Oncology 03/30/21 Kristina Pete, RN Specialty Cosmetologist Apprentice HOSPICE & PALLIATIVE MEDICINE 05/22/21 Script Girl Relationship Specialty Start Date End Date Bee Vail MD PCP - General Internal Medicine 05/07/16 Cyn Hernandez MD [id number] [place] [address] 68274 Consulting Hematology/Oncology 01/28/12 Marilyn Hughes, MAE [id number] [place] [address] 37324 Specialty Cosmetologist Apprentice Hematology/Oncology 11/09/19 [place] [address] [place] [address] Hematology/Oncology 03/30/21 Kristina Pete, MAE Specialty Cosmetologist Apprentice HOSPICE & PALLIATIVE MEDICINE 05/22/21 Script Girl Relationship Specialty Start Date End Date Bee Vail MD PCP - General Internal Medicine 05/07/16 [place] [address] [place] [address] Consulting Hematology/Oncology 01/28/12 [place] [address] [place] [address] Specialty Cosmetologist Apprentice Hematology/Oncology 11/09/19 [place] [address] [place] [address] Hematology/Oncology 03/30/21 Kristina Pete, RN Specialty Cosmetologist Apprentice HOSPICE & PALLIATIVE MEDICINE 05/22/21 Script Girl Relationship Specialty Start Date End Date Bee Vail MD PCP - General Internal Medicine 05/07/16 [place] [address] [place] [address] Consulting Hematology/Oncology 01/28/12 Marilyn Hughes, MAE [phone] [place] [address] 88125 Specialty Cosmetologist Apprentice Hematology/Oncology 11/09/19 [place] [address] [place] [address] Hematology/Oncology 03/30/21 Kristina Pete, RN Specialty Cosmetologist Apprentice HOSPICE & PALLIATIVE MEDICINE 05/22/21 Ierne Han, 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FORM RAISER [address] [place] [address] Palliative Medicine Provider HOSPICE & PALLIATIVE MEDICINE 06/28/21 Script Girl Relationship Specialty Start Date End Date Bee Vail MD PCP - General Internal Medicine 05/07/16 [place] [address] [place] [address] Consulting Hematology/Oncology 01/28/12 [place] [address] [place] [address] Specialty Cosmetologist Apprentice Hematology/Oncology 11/09/19 [place] [address] [place] [address] Hematology/Oncology 03/30/21 Kristina Pete, RN Specialty Cosmetologist Apprentice HOSPICE & PALLIATIVE MEDICINE 05/22/21 Irene Han, 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FORM RAISER [address] [place] [address] Palliative Medicine Provider HOSPICE & PALLIATIVE MEDICINE 06/28/21 Script Girl Relationship Specialty Start Date End Date Bee Vail MD PCP - General Internal Medicine 05/07/16 [place] [address] [place] [address] Consulting Hematology/Oncology 01/28/12 [place] [address] [place] [address] Specialty Cosmetologist Apprentice Hematology/Oncology 11/09/19 [place] [address] [place] [address] Hematology/Oncology 03/30/21 Kristina Pete, RN Specialty Cosmetologist Apprentice HOSPICE & PALLIATIVE MEDICINE 05/22/21 Irene Han, 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FORM RAISER [address] [place] [address] Palliative Medicine Provider HOSPICE & PALLIATIVE MEDICINE 06/28/21 Script Girl Relationship Specialty Start Date End Date Bee Vail MD PCP - General Internal Medicine 05/07/16 [place] [address] [place] [address] Consulting Hematology/Oncology 01/28/12 Marilyn Hughes RN [phone] [place] [address] 89184 Specialty Cosmetologist Apprentice Hematology/Oncology 11/09/19 [place] [address] [place] [address] Hematology/Oncology 03/30/21 Kristina Pete, MAE Specialty Cosmetologist Apprentice HOSPICE & PALLIATIVE MEDICINE 05/22/21 Irene Han, 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FORM RAISER [address] [place] [address] Palliative Medicine Provider HOSPICE & PALLIATIVE MEDICINE 06/28/21 Script Girl Relationship Specialty Start Date End Date Bee Vail MD PCP - General Internal Medicine 05/07/16 [place] [address] [place] [address] Consulting Hematology/Oncology 01/28/12 [place] [address] [place] [address] Specialty Cosmetologist Apprentice Hematology/Oncology 11/09/19 [place] [address] [place] [address] Hematology/Oncology 03/30/21 Kristina Pete, MAE Specialty Cosmetologist Apprentice HOSPICE & PALLIATIVE MEDICINE 05/22/21 Irene Han, 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FORM RAISER [address] [facility] [place] [address] Palliative Medicine Provider HOSPICE & PALLIATIVE MEDICINE 06/28/21 Script Girl Relationship Specialty Start Date End Date Bee Vail MD PCP - General Internal Medicine 05/07/16 [place] [address] [place] [address] Consulting Hematology/Oncology 01/28/12 Marilyn Hughes, RN [phone] [place] [address] 52216 Specialty Cosmetologist Apprentice Hematology/Oncology 11/09/19 [place] [address] [place] [address] Hematology/Oncology 03/30/21 Kristina Pete, MAE Specialty Cosmetologist Apprentice HOSPICE & PALLIATIVE MEDICINE 05/22/21 Irene Han, 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FORM RAISER [address] [place] [address] Palliative Medicine Provider HOSPICE & PALLIATIVE MEDICINE 06/28/21 Script Girl Relationship Specialty Start Date End Date Bee Vail MD PCP - General Internal Medicine 05/07/16 [place] [address] [place] [address] Consulting Hematology/Oncology 01/28/12 Marilyn Hughes, MAE [id number] [place] [address] 92287 Specialty Cosmetologist Apprentice Hematology/Oncology 11/09/19 [place] [address] [place] [address] Hematology/Oncology 03/30/21 Kristina Pete, RN Specialty Cosmetologist Apprentice HOSPICE & PALLIATIVE MEDICINE 05/22/21 Irene Han, 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FORM RAISER [address] [place] [address] Palliative Medicine Provider HOSPICE & PALLIATIVE MEDICINE 06/28/21 Script Girl Relationship Specialty Start Date End Date Bee Vail MD PCP - General Internal Medicine 05/07/16 [place] [address] [place] [address] Consulting Hematology/Oncology 01/28/12 [place] [address] [place] [address] Specialty Cosmetologist Apprentice Hematology/Oncology 11/09/19 [place] [address] [place] [address] Hematology/Oncology 03/30/21 Kristina Pete, MAE Specialty Cosmetologist Apprentice HOSPICE & PALLIATIVE MEDICINE 05/22/21 Irene Han, 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FORM RAISER [address] [place] [address] Palliative Medicine Provider HOSPICE & PALLIATIVE MEDICINE 06/28/21 Script Girl Relationship Specialty Start Date End Date Bee Vail MD PCP - General Internal Medicine 05/07/16 [place] [address] [place] [address] Consulting Hematology/Oncology 01/28/12 [place] [address] [place] [address] Specialty Cosmetologist Apprentice Hematology/Oncology 11/09/19 [place] [address] [place] [address] Hematology/Oncology 03/30/21 Kristina Pete, RN Specialty Cosmetologist Apprentice HOSPICE & PALLIATIVE MEDICINE 05/22/21 Irene Han, 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FORM RAISER [address] [place] [address] Palliative Medicine Provider HOSPICE & PALLIATIVE MEDICINE 06/28/21 Script Girl Relationship Specialty Start Date End Date Bee Vail MD PCP - General Internal Medicine 05/07/16 [place] [address] [place] [address] Consulting Hematology/Oncology 01/28/12 Marily[place] MAE [address] [place] [address] Specialty Cosmetologist Apprentice Hematology/Oncology 11/09/19 [place] [address] [place] [address] Hematology/Oncology 03/30/21 Kristina Pete, RN Specialty Cosmetologist Apprentice HOSPICE & PALLIATIVE MEDICINE 05/22/21 Irene Han, 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FORM RAISER [address] [place] [address] Palliative Medicine Provider HOSPICE & PALLIATIVE MEDICINE 06/28/21 Script Girl Relationship Specialty Start Date End Date Bee Vail MD PCP - General Internal Medicine 05/07/16 [place] [address] [place] [address] Consulting Hematology/Oncology 01/28/12 [place] [address] [place] [address] Specialty Cosmetologist Apprentice Hematology/Oncology 11/09/19 [place] [address] [place] [address] Hematology/Oncology 03/30/21 Kristina Pete, RN Specialty Cosmetologist Apprentice HOSPICE & PALLIATIVE MEDICINE 05/22/21 Irene Han, 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FORM RAISER [address] [place] [address] Palliative Medicine Provider HOSPICE & PALLIATIVE MEDICINE 06/28/21 Script Girl Relationship Specialty Start Date End Date Bee Vail MD PCP - General Internal Medicine 05/07/16 [place] [address] [place] [address] Consulting Hematology/Oncology 01/28/12 [place] [address] [place] [address] Specialty Cosmetologist Apprentice Hematology/Oncology 11/09/19 [place] [address] [place] [address] Hematology/Oncology 03/30/21 Kristina Pete, RN Specialty Cosmetologist Apprentice HOSPICE & PALLIATIVE MEDICINE 05/22/21 Irene Han, 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FORM RAISER [address] [place] [address] Palliative Medicine Provider HOSPICE & PALLIATIVE MEDICINE 06/28/21 Script Girl Relationship Specialty Start Date End Date Bee Vail MD PCP - General Internal Medicine 05/07/16 [place] [address] [place] [address] Consulting Hematology/Oncology 01/28/12 [place] [address] [place] [address] Specialty Cosmetologist Apprentice Hematology/Oncology 11/09/19 [place] [address] [place] [address] Hematology/Oncology 03/30/21 Kristina Pete, RN Specialty Cosmetologist Apprentice HOSPICE & PALLIATIVE MEDICINE 05/22/21 Irene Han, 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FORM RAISER [address] [place] [address] Palliative Medicine Provider HOSPICE & PALLIATIVE MEDICINE 06/28/21 Script Girl Relationship Specialty Start Date End Date Bee Vail MD PCP - General Internal Medicine 05/07/16 [place] [address] [place] [address] Consulting Hematology/Oncology 01/28/12 Marilyn Hughes, MAE [address] [place] [address] Specialty Cosmetologist Apprentice Hematology/Oncology 11/09/19 [place] [address] [place] [address] Hematology/Oncology 03/30/21 Kristina Pete, RN Specialty Cosmetologist Apprentice HOSPICE & PALLIATIVE MEDICINE 05/22/21 Irene Han, CHEMICAL LAB SUPERVISOR.FORM RAISER [address] [place] [address] Palliative Medicine Provider HOSPICE & PALLIATIVE MEDICINE 06/28/21 Script Girl Relationship Specialty Start Date End Date Bee Vail MD PCP - General Internal Medicine 05/07/16 [place] [address] [place] [address] Consulting Hematology/Oncology 01/28/12 Marilyn Hughes, MAE [phone] [place] [address] 70994 Specialty Cosmetologist Apprentice Hematology/Oncology 11/09/19 [place] [address] [place] [address] Hematology/Oncology 03/30/21 Kristina Pete, MAE Specialty Cosmetologist Apprentice HOSPICE & PALLIATIVE MEDICINE 05/22/21 Irene Han, CHEMICAL LAB SUPERVISOR.FORM RAISER [address] [place] [address] Palliative Medicine Provider HOSPICE & PALLIATIVE MEDICINE 06/28/21 Script Girl Relationship Specialty Start Date End Date Bee Vail MD PCP - General Internal Medicine 05/07/16 [place] [address] [place] [address] Consulting Hematology/Oncology 01/28/12 [place] [address] [place] [address] Specialty Cosmetologist Apprentice Hematology/Oncology 11/09/19 [place] [address] [place] [address] Hematology/Oncology 03/30/21 Kristina Pete, MAE Specialty Cosmetologist Apprentice HOSPICE & PALLIATIVE MEDICINE 05/22/21 Irene Han, CHEMICAL LAB SUPERVISOR.FORM RAISER [address] [facility] [place] [place] [id number] Palliative Medicine Provider HOSPICE & PALLIATIVE MEDICINE 06/28/21 Script Girl Relationship Specialty Start Date End Date Bee Vail MD PCP - General Internal Medicine 05/07/16 [place] [address] [place] [address] Consulting Hematology/Oncology 01/28/12 [place] [address] [place] [address] Specialty Cosmetologist Apprentice Hematology/Oncology 11/09/19 [place] [address] [place] [address] Hematology/Oncology 03/30/21 Kristina Pete, MAE Specialty Cosmetologist Apprentice HOSPICE & PALLIATIVE MEDICINE 05/22/21 Irene Han, CHEMICAL LAB SUPERVISOR.FORM RAISER [address] [place] [address] Palliative Medicine Provider HOSPICE & PALLIATIVE MEDICINE 06/28/21 Script Girl Relationship Specialty Start Date End Date Bee Vail MD PCP - General Internal Medicine 05/07/16 [place] [address] [place] [address] Consulting Hematology/Oncology 01/28/12 [place] MAE [address] [place] [address] Specialty Cosmetologist Apprentice Hematology/Oncology 11/09/19 [place] [address] [place] [address] Hematology/Oncology 03/30/21 Kristina Pete, MAE Specialty Cosmetologist Apprentice HOSPICE & PALLIATIVE MEDICINE 05/22/21 Irene Han, CHEMICAL LAB SUPERVISOR.FORM RAISER [address] [place] [address] Palliative Medicine Provider HOSPICE & PALLIATIVE MEDICINE 06/28/21 Kylie Mosher, RN Specialty Cosmetologist Apprentice HOSPICE & PALLIATIVE MEDICINE 09/27/21 Script Girl Relationship Specialty Start Date End Date Bee Vail MD PCP - General Internal Medicine 05/07/16 [place] [address] [place] [address] Consulting Hematology/Oncology 01/28/12 [place]E [address] [place] [address] Specialty Cosmetologist Apprentice Hematology/Oncology 11/09/19 [place] [address] [place] [address] Hematology/Oncology 03/30/21 Kristina Pete, MAE Specialty Cosmetologist Apprentice HOSPICE & PALLIATIVE MEDICINE 05/22/21 Irene Han, CHEMICAL LAB SUPERVISOR.FORM RAISER [address] [place] [address] Palliative Medicine Provider HOSPICE & PALLIATIVE MEDICINE 06/28/21 Kylie Mosher RN Specialty Cosmetologist Apprentice HOSPICE & PALLIATIVE MEDICINE 09/27/21 Script Girl Relationship Specialty Start Date End Date Bee Vail MD PCP - General Internal Medicine 05/07/16 [place] [address] [place] [address] Consulting Hematology/Oncology 01/28/12 Mar[place], MAE [address] [place] [address] Specialty Cosmetologist Apprentice Hematology/Oncology 11/09/19 [place] [address] [place] [address] Hematology/Oncology 03/30/21 Kristina Pete, RN Specialty Cosmetologist Apprentice HOSPICE & PALLIATIVE MEDICINE 05/22/21 Irene Han, CHEMICAL LAB SUPERVISOR.FORM RAISER [address] [place] [address] Palliative Medicine Provider HOSPICE & PALLIATIVE MEDICINE 06/28/21 Kylie Mosher, RN Specialty Cosmetologist Apprentice HOSPICE & PALLIATIVE MEDICINE 09/27/21 Script Girl Relationship Specialty Start Date End Date Bee Vail MD PCP - General Internal Medicine 05/07/16 [place] [address] [place] [address] Consulting Hematology/Oncology 01/28/12 Marilyn Hughes, MAE [address] [place] [address] Specialty Cosmetologist Apprentice Hematology/Oncology 11/09/19 [place] [address] [place] [address] Hematology/Oncology 03/30/21 Kristina Pete, RN Specialty Cosmetologist Apprentice HOSPICE & PALLIATIVE MEDICINE 05/22/21 Irene Han, CHEMICAL LAB SUPERVISOR.FORM RAISER [address] [place] [address] Palliative Medicine Provider HOSPICE & PALLIATIVE MEDICINE 06/28/21 Kylie Mosher RN Specialty Cosmetologist Apprentice HOSPICE & PALLIATIVE MEDICINE 09/27/21 Script Girl Relationship Specialty Start Date End Date Bee Vail MD PCP - General Internal Medicine 05/07/16 [place] [address] [place] [address] Consulting Hematology/Oncology 01/28/12 Marilyn Hughes RN [phone] [place] [address] 10203 Specialty Cosmetologist Apprentice Hematology/Oncology 11/09/19 [place] [address] [place] [address] Hematology/Oncology 03/30/21 Kristina Pete, MAE Specialty Cosmetologist Apprentice HOSPICE & PALLIATIVE MEDICINE 05/22/21 Irene Han, CHEMICAL LAB SUPERVISOR.FORM RAISER [address] [place] [address] Palliative Medicine Provider HOSPICE & PALLIATIVE MEDICINE 06/28/21 Kylie Mosher RN Specialty Cosmetologist Apprentice HOSPICE & PALLIATIVE MEDICINE 09/27/21 Script Girl Relationship Specialty Start Date End Date Bee Vail MD PCP - General Internal Medicine 05/07/16 [place] [address] [place] [address] Consulting Hematology/Oncology 01/28/12 Marilyn Hughes RN [phone] [place] [address] 88893 Specialty Cosmetologist Apprentice Hematology/Oncology 11/09/19 [place] [address] [place] [address] Hematology/Oncology 03/30/21 Kristina Pete, MAE Specialty Cosmetologist Apprentice HOSPICE & PALLIATIVE MEDICINE 05/22/21 Irene Han, CHEMICAL LAB SUPERVISOR.FORM RAISER [address] [place] [address] Palliative Medicine Provider HOSPICE & PALLIATIVE MEDICINE 06/28/21 Kylie Mosher, RN Specialty Cosmetologist Apprentice HOSPICE & PALLIATIVE MEDICINE 09/27/21 Script Girl Relationship Specialty Start Date End Date Bee Vail MD PCP - General Internal Medicine 05/07/16 [place] [address] [place] [address] Consulting Hematology/Oncology 01/28/12 Marilyn Hughes, RN [phone] [place] [address] 45873 Specialty Cosmetologist Apprentice Hematology/Oncology 11/09/19 [place] [address] [place] [address] Hematology/Oncology 03/30/21 Kristina Pete, MAE Specialty Cosmetologist Apprentice HOSPICE & PALLIATIVE MEDICINE 05/22/21 Irene Han, CHEMICAL LAB SUPERVISOR.FORM RAISER [address] [place] [address] Palliative Medicine Provider HOSPICE & PALLIATIVE MEDICINE 06/28/21 Kylie Mosher, RN Specialty Cosmetologist Apprentice HOSPICE & PALLIATIVE MEDICINE 09/27/21 Script Girl Relationship Specialty Start Date End Date Bee Vail MD PCP - General Internal Medicine 05/07/16 [place] [address] [place] [address] Consulting Hematology/Oncology 01/28/12 Marilyn Hughes, RN [phone] [place] [address] 01015 Specialty Cosmetologist Apprentice Hematology/Oncology 11/09/19 [place] [address] [place] [address] Hematology/Oncology 03/30/21 Kristina Pete, RN Specialty Cosmetologist Apprentice HOSPICE & PALLIATIVE MEDICINE 05/22/21 Irene Han, CHEMICAL LAB SUPERVISOR.FORM RAISER [address] [place] [address] Palliative Medicine Provider HOSPICE & PALLIATIVE MEDICINE 06/28/21 Kylie Mosher, RN Specialty Cosmetologist Apprentice HOSPICE & PALLIATIVE MEDICINE 09/27/21 Script Girl Relationship Specialty Start Date End Date Bee Vail MD PCP - General Internal Medicine 05/07/16 [place] [address] [place] [address] Consulting Hematology/Oncology 01/28/12 Marilyn Hughes, MAE [address] [place] [address] Specialty Cosmetologist Apprentice Hematology/Oncology 11/09/19 [place] [address] [place] [address] Hematology/Oncology 03/30/21 Kristina Pete, MAE Specialty Cosmetologist Apprentice HOSPICE & PALLIATIVE MEDICINE 05/22/21 Irene Han, CHEMICAL LAB SUPERVISOR.FORM RAISER [address] [place] [address] Palliative Medicine Provider HOSPICE & PALLIATIVE MEDICINE 06/28/21 Kylie Mosher, RN Specialty Cosmetologist Apprentice HOSPICE & PALLIATIVE MEDICINE 09/27/21 Script Girl Relationship Specialty Start Date End Date Bee Vail MD PCP - General Internal Medicine 05/07/16 [place] [address] [place] [address] Consulting Hematology/Oncology 01/28/12 [place] [address] [place] [address] Specialty Cosmetologist Apprentice Hematology/Oncology 11/09/19 [place] [address] [place] [address] Hematology/Oncology 03/30/21 Kristina Pete, RN Specialty Cosmetologist Apprentice HOSPICE & PALLIATIVE MEDICINE 05/22/21 Irene Han, CHEMICAL LAB SUPERVISOR.FORM RAISER [address] [place] [address] Palliative Medicine Provider HOSPICE & PALLIATIVE MEDICINE 06/28/21 Kylie Mosher RN Specialty Cosmetologist Apprentice HOSPICE & PALLIATIVE MEDICINE 09/27/21 Script Girl Relationship Specialty Start Date End Date Bee Vail MD PCP - General Internal Medicine 05/07/16 [place] [address] [place] [address] Consulting Hematology/Oncology 01/28/12 [place] [address] [place] [address] Specialty Cosmetologist Apprentice Hematology/Oncology 11/09/19 [place] [address] [place] [address] Hematology/Oncology 03/30/21 Kristina Pete, MAE Specialty Cosmetologist Apprentice HOSPICE & PALLIATIVE MEDICINE 05/22/21 Irene Han, CHEMICAL LAB SUPERVISOR.FORM RAISER [address] [place] [address] Palliative Medicine Provider HOSPICE & PALLIATIVE MEDICINE 06/28/21 Kylie Mosher RN Specialty Cosmetologist Apprentice HOSPICE & PALLIATIVE MEDICINE 09/27/21 Script Girl Relationship Specialty Start Date End Date Bee Vail MD PCP - General Internal Medicine 05/07/16 [place] [address] [place] [address] Consulting Hematology/Oncology 01/28/12 Marilyn Hughes, MAE [address] [place] [address] 10028 Specialty Cosmetologist Apprentice Hematology/Oncology 11/09/19 [place] [address] [place] [address] Hematology/Oncology 03/30/21 Kristina Pete RN Specialty Cosmetologist Apprentice HOSPICE & PALLIATIVE MEDICINE 05/22/21 Irene Han, CHEMICAL LAB SUPERVISOR.FORM RAISER [address] [place] [address] Palliative Medicine Provider HOSPICE & PALLIATIVE MEDICINE 06/28/21 Kylie Mosher RN Specialty Cosmetologist Apprentice HOSPICE & PALLIATIVE MEDICINE 09/27/21 Script Girl Relationship Specialty Start Date End Date Bee Vail MD PCP - General Internal Medicine 05/07/16 [place] [address] Consulting Hematology/Oncology 01/28/12 Marilyn Hughes, MAE [phone] [place] [address]12 Specialty Cosmetologist Apprentice Hematology/Oncology 11/09/19 [place] [address] [place] [address] Hematology/Oncology 03/30/21 Kristina Pete, MAE Specialty Cosmetologist Apprentice HOSPICE & PALLIATIVE MEDICINE 05/22/21 Irene Han, CHEMICAL LAB SUPERVISOR.FORM RAISER [address] [place] [address] Palliative Medicine Provider HOSPICE & PALLIATIVE MEDICINE 06/28/21 Kylie Mosher, RN Specialty Cosmetologist Apprentice HOSPICE & PALLIATIVE MEDICINE 09/27/21 Script Girl Relationship Specialty Start Date End Date Bee Vail MD PCP - General Internal Medicine 05/07/16 [place] [address] [place] [address] Consulting Hematology/Oncology 01/28/12 [place] MAE [address] [place] [address] Specialty Cosmetologist Apprentice Hematology/Oncology 11/09/19 [place] [address] [place] [address] Hematology/Oncology 03/30/21 Kristina Pete, MAE Specialty Cosmetologist Apprentice HOSPICE & PALLIATIVE MEDICINE 05/22/21 Irene Han, CHEMICAL LAB SUPERVISOR.FORM RAISER [address] [place] [address] Palliative Medicine Provider HOSPICE & PALLIATIVE MEDICINE 06/28/21 Kylie Mosher, RN Specialty Cosmetologist Apprentice HOSPICE & PALLIATIVE MEDICINE 09/27/21 Script Girl Relationship Specialty Start Date End Date Bee Vail MD PCP - General Internal Medicine 05/07/16 [place] [address] [place] [address] Consulting Hematology/Oncology 01/28/12 Marilyn Hughes, MAE [address] [place] [address] Specialty Cosmetologist Apprentice Hematology/Oncology 11/09/19 [place] [address] [place] [address] Hematology/Oncology 03/30/21 Kristina Pete, RN Specialty Cosmetologist Apprentice HOSPICE & PALLIATIVE MEDICINE 05/22/21 Irene Han, CHEMICAL LAB SUPERVISOR.FORM RAISER [address] [place] [address] Palliative Medicine Provider HOSPICE & PALLIATIVE MEDICINE 06/28/21 Kylie Mosher, RN Specialty Cosmetologist Apprentice HOSPICE & PALLIATIVE MEDICINE 09/27/21 Script Girl Relationship Specialty Start Date End Date Bee Vail MD PCP - General Internal Medicine 05/07/16 [place] [address] [place] [address] Consulting Hematology/Oncology 01/28/12 Marilyn Hughes, MAE [address] [place] [address] Specialty Cosmetologist Apprentice Hematology/Oncology 11/09/19 [place] [address] [place] [address] Hematology/Oncology 03/30/21 Kristina Pete, RN Specialty Cosmetologist Apprentice HOSPICE & PALLIATIVE MEDICINE 05/22/21 Irene Han, CHEMICAL LAB SUPERVISOR.FORM RAISER [address] [place] [address] Palliative Medicine Provider HOSPICE & PALLIATIVE MEDICINE 06/28/21 Kylie Mosher RN Specialty Cosmetologist Apprentice HOSPICE & PALLIATIVE MEDICINE 09/27/21 Script Girl Relationship Specialty [place] [address] [place] [address] PCP - General Internal Medicine 05/07/16 [place] [address] [place] [address] Consulting Hematology/Oncology 01/28/12 Marilyn Hughes, RN [phone] [place] [address] Specialty Cosmetologist Apprentice Hematology/Oncology 11/09/19 [place] [address] [place] [address] Hematology/Oncology 03/30/21 Kristina Pete, MAE Specialty Cosmetologist Apprentice HOSPICE & PALLIATIVE MEDICINE 05/22/21 Irene Han, LORY.FORM RAISER [address] [place] [address] Palliative Medicine Provider HOSPICE & PALLIATIVE MEDICINE 06/28/21 Kylie Mosher RN Specialty Cosmetologist Apprentice HOSPICE & PALLIATIVE MEDICINE 09/27/21 Script Girl Relationship Specialty [place] [address] [place] [address] PCP - General Internal Medicine 05/07/16 [place] [address] [place] [address] Consulting Hematology/Oncology 01/28/12 Marilyn Hughes, MAE [phone] [place] [address] Specialty Cosmetologist Apprentice Hematology/Oncology 11/09/19 [place] [address] [place] [address] Hematology/Oncology 03/30/21 Kristina Pete, MAE Specialty Cosmetologist Apprentice HOSPICE & PALLIATIVE MEDICINE 05/22/21 Irene Han, CHEMICAL LAB SUPERVISOR.FORM RAISER [address] [place] [address] Palliative Medicine Provider HOSPICE & PALLIATIVE MEDICINE 06/28/21 Kylie Mosher, RN Specialty Cosmetologist Apprentice HOSPICE & PALLIATIVE MEDICINE 09/27/21 Script Girl Relationship Specialty [place] [address] [place] [address] PCP - General Internal Medicine 05/07/16 [place] [address] [place] [address] Consulting Hematology/Oncology 01/28/12 Marilyn Hughes, MAE [address] [place] [address] Specialty Cosmetologist Apprentice Hematology/Oncology 11/09/19 [place] [address] [place] [address] Hematology/Oncology 03/30/21 Kristina Pete, MAE Specialty Cosmetologist Apprentice HOSPICE & PALLIATIVE MEDICINE 05/22/21 Irene Han, CHEMICAL LAB SUPERVISOR.FORM RAISER [address] [place] [address] Palliative Medicine Provider HOSPICE & PALLIATIVE MEDICINE 06/28/21 Kylie Mosher, RN Specialty Cosmetologist Apprentice HOSPICE & PALLIATIVE MEDICINE 09/27/21 Script Girl Relationship Specialty [place] [address] [place] [address] PCP - General Internal Medicine 05/07/16 [place] [address] [place] [address] Consulting Hematology/Oncology 01/28/12 Marilyn Hughes, MAE [address] [place] [address] Specialty Cosmetologist Apprentice Hematology/Oncology 11/09/19 [place] [address] [place] [address] Hematology/Oncology 03/30/21 Kristina Pete, MAE Specialty Cosmetologist Apprentice HOSPICE & PALLIATIVE MEDICINE 05/22/21 Irene Han, CHEMICAL LAB SUPERVISOR.FORM RAISER [address] [place] [address] Palliative Medicine Provider HOSPICE & PALLIATIVE MEDICINE 06/28/21 Kylie Mosher RN Specialty Cosmetologist Apprentice HOSPICE & PALLIATIVE MEDICINE 09/27/21 Script Girl Relationship Specialty [place] [address] [place] [address] PCP - General Internal Medicine 05/07/16 [place] [address] [place] [address] Consulting Hematology/Oncology 01/28/12 [place] [address] [place] [address] Specialty Cosmetologist Apprentice Hematology/Oncology 11/09/19 [place] [address] [place] [address] Hematology/Oncology 03/30/21 Kristina Pete, MAE Specialty Cosmetologist Apprentice HOSPICE & PALLIATIVE MEDICINE 05/22/21 Irene Han, CHEMICAL LAB SUPERVISOR.FORM RAISER [address] [place] [address] Palliative Medicine Provider HOSPICE & PALLIATIVE MEDICINE 06/28/21 Kylie Mosher RN Specialty Cosmetologist Apprentice HOSPICE & PALLIATIVE MEDICINE 09/27/21 Script Girl Relationship Specialty Start [place] [address] PCP - General Internal Medicine 05/07/16 [place] [address] Consulting Hematology/Oncology 01/28/12 Marilyn Hughes, RN [address] [place] [address] Specialty Cosmetologist Apprentice Hematology/Oncology 11/09/19 [place] [address] Hematology/Oncology 03/30/21 Kristina Pete, RN Specialty Cosmetologist Apprentice HOSPICE & PALLIATIVE MEDICINE 05/22/21 Irene Han, CHEMICAL LAB SUPERVISOR.FORM RAISER [address] [place] [address] Palliative Medicine Provider HOSPICE & PALLIATIVE MEDICINE 06/28/21 Kylie Mosher, RN Specialty Cosmetologist Apprentice HOSPICE & PALLIATIVE MEDICINE 09/27/21 Script Girl Relationship Specialty Start [place] [address] PCP - General Internal Medicine 05/07/16 [place] [address] Consulting Hematology/Oncology 01/28/12 Marilyn Hughes, MAE [address] [place] [address] Specialty Cosmetologist Apprentice Hematology/Oncology 11/09/19 [place] [address] [place] [address] Hematology/Oncology 03/30/21 Kristina Pete, MAE Specialty Cosmetologist Apprentice HOSPICE & PALLIATIVE MEDICINE 05/22/21 Irene Han, CHEMICAL LAB SUPERVISOR.FORM RAISER [address] [place] [address] Palliative Medicine Provider HOSPICE & PALLIATIVE MEDICINE 06/28/21 Kylie Mosher, RN Specialty Cosmetologist Apprentice HOSPICE & PALLIATIVE MEDICINE 09/27/21 Script Girl Relationship Specialty [place] [address] [place] [address] PCP - General Internal Medicine 05/07/16 [place] [address] [place] [address] Consulting Hematology/Oncology 01/28/12 [place] [address] [place] [address] Specialty Cosmetologist Apprentice Hematology/Oncology 11/09/19 [place] [address] [place] [address] Hematology/Oncology 03/30/21 Kristina Pete, MAE Specialty Cosmetologist Apprentice HOSPICE & PALLIATIVE MEDICINE 05/22/21 Irene Han, CHEMICAL LAB SUPERVISOR.FORM RAISER [address] [place] [address] Palliative Medicine Provider HOSPICE & PALLIATIVE MEDICINE 06/28/21 Kylie Mosher, RN Specialty Cosmetologist Apprentice HOSPICE & PALLIATIVE MEDICINE 09/27/21 Script Girl Relationship Specialty [place] [address] [place] [address] PCP - General Internal Medicine 05/07/16 [place] [address] [place] [address] Consulting Hematology/Oncology 01/28/12 [place] [address] [place] [address] Specialty Cosmetologist Apprentice Hematology/Oncology 11/09/19 [place] [address] [place] [address] Hematology/Oncology 03/30/21 Kristina Pete, RN Specialty Cosmetologist Apprentice HOSPICE & PALLIATIVE MEDICINE 05/22/21 Irene Han, CHEMICAL LAB SUPERVISOR.FORM RAISER [address] [place] [address] Palliative Medicine Provider HOSPICE & PALLIATIVE MEDICINE 06/28/21 Kylie Mosher RN Specialty Cosmetologist Apprentice HOSPICE & PALLIATIVE MEDICINE 09/27/21 Script Girl Relationship Specialty [place] [address] [place] [address] PCP - General Internal Medicine 05/07/16 [place] [address] [place] [address] Consulting Hematology/Oncology 01/28/12 [place] [address] [place] [address] Specialty Cosmetologist Apprentice Hematology/Oncology 11/09/19 [place] [address] [place] [address] Hematology/Oncology 03/30/21 Kristina Pete, MAE Specialty Cosmetologist Apprentice HOSPICE & PALLIATIVE MEDICINE 05/22/21 Irene Han, CHEMICAL LAB SUPERVISOR.FORM RAISER [address] [place] [address] Palliative Medicine Provider HOSPICE & PALLIATIVE MEDICINE 06/28/21 Kylie Mosher RN Specialty Cosmetologist Apprentice HOSPICE & PALLIATIVE MEDICINE 09/27/21 Script Girl Relationship Specialty [place] [address] [place] [address] PCP - General Internal Medicine 05/07/16 [place] [address] [place] [address] Consulting Hematology/Oncology 01/28/12 Marilyn Hughes, RN [phone] [place] [address] Specialty Cosmetologist Apprentice Hematology/Oncology 11/09/19 [place] [address] [place] [address] Hematology/Oncology 03/30/21 Kristina Pete, MAE Specialty Cosmetologist Apprentice HOSPICE & PALLIATIVE MEDICINE 05/22/21 Irene Han, CHEMICAL LAB SUPERVISOR.FORM RAISER [address] [place] [address] Palliative Medicine Provider HOSPICE & PALLIATIVE MEDICINE 06/28/21 Kylie Mosher RN Specialty Cosmetologist Apprentice HOSPICE & PALLIATIVE MEDICINE 09/27/21 Script Girl Relationship Specialty [place] [address] [place] [address] PCP - General Internal Medicine 05/07/16 [place] [address] [place] [address] Consulting Hematology/Oncology 01/28/12 Marilyn Hughes, MAE [phone] [place] [address] Specialty Cosmetologist Apprentice Hematology/Oncology 11/09/19 [place] [address] [place] [address] Hematology/Oncology 03/30/21 Kristina Pete, MAE Specialty Cosmetologist Apprentice HOSPICE & PALLIATIVE MEDICINE 05/22/21 Irene Han, CHEMICAL LAB SUPERVISOR.FORM RAISER [address] [place] [address] Palliative Medicine Provider HOSPICE & PALLIATIVE MEDICINE 06/28/21 Kylie Mosher, RN Specialty Cosmetologist Apprentice HOSPICE & PALLIATIVE MEDICINE 09/27/21 Script Girl Relationship Specialty [place] [address] [place] [address] PCP - General Internal Medicine 05/07/16 [place] [address] [place] [address] Consulting Hematology/Oncology 01/28/12 Mar[place] MAE [address] [place] [address] Specialty Cosmetologist Apprentice Hematology/Oncology 11/09/19 [place] [address] [place] [address] Hematology/Oncology 03/30/21 Kristina Pete, MAE Specialty Cosmetologist Apprentice HOSPICE & PALLIATIVE MEDICINE 05/22/21 Irene Han, CHEMICAL LAB SUPERVISOR.FORM RAISER [address] [place] [address] Palliative Medicine Provider HOSPICE & PALLIATIVE MEDICINE 06/28/21 Kylie Mosher, RN Specialty Cosmetologist Apprentice HOSPICE & PALLIATIVE MEDICINE 09/27/21 Script Girl Relationship Specialty [place] [address] [place] [address] PCP - General Internal Medicine 05/07/16 [place] [address] [place] [address] Consulting Hematology/Oncology 01/28/12 [place] [address] [place] [address] Specialty Cosmetologist Apprentice Hematology/Oncology 11/09/19 [place] [address] [place] [address] Hematology/Oncology 03/30/21 Kristina Pete, RN Specialty Cosmetologist Apprentice HOSPICE & PALLIATIVE MEDICINE 05/22/21 Irene Han, CHEMICAL LAB SUPERVISOR.FORM RAISER [address] [place] [address] Palliative Medicine Provider HOSPICE & PALLIATIVE MEDICINE 06/28/21 Kylie Mosher RN Specialty Cosmetologist Apprentice HOSPICE & PALLIATIVE MEDICINE 09/27/21 Script Girl Relationship Specialty [place] [address] [place] [address] PCP - General Internal Medicine 05/07/16 [place] [address] [place] [address] Consulting Hematology/Oncology 01/28/12 [place] [address] [place] [address] Specialty Cosmetologist Apprentice Hematology/Oncology 11/09/19 [place] [address] [place] [address] Hematology/Oncology 03/30/21 Kristina Pete, RN Specialty Cosmetologist Apprentice HOSPICE & PALLIATIVE MEDICINE 05/22/21 Irene Han, CHEMICAL LAB SUPERVISOR.FORM RAISER [address] [place] [address] Palliative Medicine Provider HOSPICE & PALLIATIVE MEDICINE 06/28/21 Kylie Mosher, RN Specialty Cosmetologist Apprentice HOSPICE & PALLIATIVE MEDICINE 09/27/21 Script Girl Relationship Specialty [place] [address] [place] [address] PCP - General Internal Medicine 05/07/16 [place] [address] Consulting Hematology/Oncology 01/28/12 Marilyn Hughes, RN [address] [place] [address] Specialty Cosmetologist Apprentice Hematology/Oncology 11/09/19 [place] [address] [place] [address] Hematology/Oncology 03/30/21 Kristina Pete, MAE Specialty Cosmetologist Apprentice HOSPICE & PALLIATIVE MEDICINE 05/22/21 Irene Han, CHEMICAL LAB SUPERVISOR.FORM RAISER [address] [place] [address] Palliative Medicine Provider HOSPICE & PALLIATIVE MEDICINE 06/28/21 Kylie Mosher, RN Specialty Cosmetologist Apprentice HOSPICE & PALLIATIVE MEDICINE 09/27/21 Script Girl Relationship Specialty Start [place] [address] PCP - General Internal Medicine 05/07/16 [place] [address] [place] [address] Consulting Hematology/Oncology 01/28/12 [place] [address] [place] [address] Specialty Cosmetologist Apprentice Hematology/Oncology 11/09/19 [place] [address] [facility] [place] [address] Hematology/Oncology 03/30/21 Kristina Pete, RN Specialty Cosmetologist Apprentice HOSPICE & PALLIATIVE MEDICINE 05/22/21 Irene Han, CHEMICAL LAB SUPERVISOR.FORM RAISER [address] [place] [address] Palliative Medicine Provider HOSPICE & PALLIATIVE MEDICINE 06/28/21 Kylie Mosher, RN Specialty Cosmetologist Apprentice HOSPICE & PALLIATIVE MEDICINE 09/27/21 Script Girl Relationship Specialty [place] [address] [place] [address] PCP - General Internal Medicine 05/07/16 [place] [address] [place] [address] Consulting Hematology/Oncology 01/28/12 [place] [address] [place] [address] Hematology/Oncology 03/30/21 Kristina Pete, RN Specialty Cosmetologist Apprentice HOSPICE & PALLIATIVE MEDICINE 05/22/21 Irene Han, CHEMICAL LAB SUPERVISOR.FORM RAISER [address] [place] [address] Palliative Medicine Provider HOSPICE & PALLIATIVE MEDICINE 06/28/21 Kylie Mosher, RN Specialty Cosmetologist Apprentice HOSPICE & PALLIATIVE MEDICINE 09/27/21 Script Girl Relationship Specialty [place] [address] [place] [address] PCP - General Internal Medicine 05/07/16 [place] [address] [place] [address] Consulting Hematology/Oncology 01/28/12 [place] [address] [facility] [place] [address] Hematology/Oncology 03/30/21 Kristina Pete, RN Specialty Cosmetologist Apprentice HOSPICE & PALLIATIVE MEDICINE 05/22/21 Irene Han, CHEMICAL LAB SUPERVISOR.FORM RAISER [address] [place] [address] Palliative Medicine Provider HOSPICE & PALLIATIVE MEDICINE 06/28/21 Kylie Mosher, RN Specialty Cosmetologist Apprentice HOSPICE & PALLIATIVE MEDICINE 09/27/21 Script Girl Relationship Specialty [place] [address] [place] [address] PCP - General Internal Medicine 05/07/16 [place] [address] [place] [address] Consulting Hematology/Oncology 01/28/12 [place] [address] [place] [address] Hematology/Oncology 03/30/21 Kristina Pete, RN Specialty Cosmetologist Apprentice HOSPICE & PALLIATIVE MEDICINE 05/22/21 Irene Han, CHEMICAL LAB SUPERVISOR.FORM RAISER [address] [place] [address] Palliative Medicine Provider HOSPICE & PALLIATIVE MEDICINE 06/28/21 Kylie Mosher, RN Specialty Cosmetologist Apprentice HOSPICE & PALLIATIVE MEDICINE 09/27/21 Script Girl Relationship Specialty [place] [address] [place] [address] PCP - General Internal Medicine 05/07/16 [place] [address] [place] [address] Consulting Hematology/Oncology 01/28/12 [place] [address] [place] [address] Hematology/Oncology 03/30/21 Kristina Pete, RN Specialty Cosmetologist Apprentice HOSPICE & PALLIATIVE MEDICINE 05/22/21 Irene Han, CHEMICAL LAB SUPERVISOR.FORM RAISER [address] [place] [address] Palliative Medicine Provider HOSPICE & PALLIATIVE MEDICINE 06/28/21 Kylie Mosher, RN Specialty Cosmetologist Apprentice HOSPICE & PALLIATIVE MEDICINE 09/27/21 Script Girl Relationship Specialty [place] [address] [place] [address] PCP - General Internal Medicine 05/07/16 [place] [address] [place] [address] Consulting Hematology/Oncology 01/28/12 [place] [address] [place] [address] Hematology/Oncology 03/30/21 Kristina Pete, RN Specialty Cosmetologist Apprentice HOSPICE & PALLIATIVE MEDICINE 05/22/21 Irene aHn, CHEMICAL LAB SUPERVISOR.FORM RAISER [address] [place] [address] Palliative Medicine Provider HOSPICE & PALLIATIVE MEDICINE 06/28/21 Kylie Mosher, RN Specialty Cosmetologist Apprentice HOSPICE & PALLIATIVE MEDICINE 09/27/21 Script Girl Relationship Specialty [place] [address] [place] [address] PCP - General Internal Medicine 05/07/16 [place] [address] [place] [address] Consulting Hematology/Oncology 01/28/12 [place] [address] [place] [address] Hematology/Oncology 03/30/21 Kristina Pete, RN Specialty Cosmetologist Apprentice HOSPICE & PALLIATIVE MEDICINE 05/22/21 Irene Han, CHEMICAL LAB SUPERVISOR.FORM RAISER [address] [place] [address] Palliative Medicine Provider HOSPICE & PALLIATIVE MEDICINE 06/28/21 Kylie Mosher, RN Specialty Cosmetologist Apprentice HOSPICE & PALLIATIVE MEDICINE 09/27/21 Script Girl Relationship Specialty Start [place] [address] PCP - General Internal Medicine 05/07/16 [place] [address] [place] [address] Consulting Hematology/Oncology 01/28/12 [place] [address] Hematology/Oncology 03/30/21 Kristina Pete, MAE Specialty Cosmetologist Apprentice HOSPICE & PALLIATIVE MEDICINE 05/22/21 Irene Han, CHEMICAL LAB SUPERVISOR.FORM RAISER [address] [place] [address] Palliative Medicine Provider HOSPICE & PALLIATIVE MEDICINE 06/28/21 Kylie Mosher, RN Specialty Cosmetologist Apprentice HOSPICE & PALLIATIVE MEDICINE 09/27/21 Script Girl Relationship Specialty Start [place] [address] PCP - General Internal Medicine 05/07/16 [place] [address] [place] [address] Consulting Hematology/Oncology 01/28/12 [place] [address] [place] [address] Hematology/Oncology 03/30/21 Kristina Pete, RN Specialty Cosmetologist Apprentice HOSPICE & PALLIATIVE MEDICINE 05/22/21 Irene Han, CHEMICAL LAB SUPERVISOR.FORM RAISER [address] [place] [address] Palliative Medicine Provider HOSPICE & PALLIATIVE MEDICINE 06/28/21 Kylie Mosher, RN Specialty Cosmetologist Apprentice HOSPICE & PALLIATIVE MEDICINE 09/27/21 Script Girl Relationship Specialty Start [place] [address] PCP - General Internal Medicine 05/07/16 [place] [address] [place] [address] Consulting Hematology/Oncology 01/28/12 [place] [address] [place] [address] Hematology/Oncology 03/30/21 Kristina Pete, MAE Specialty Cosmetologist Apprentice HOSPICE & PALLIATIVE MEDICINE 05/22/21 Irene Han, CHEMICAL LAB SUPERVISOR.FORM RAISER [address] [place] [address] Palliative Medicine Provider HOSPICE & PALLIATIVE MEDICINE 06/28/21 Kylie Mosher, RN Specialty Cosmetologist Apprentice HOSPICE & PALLIATIVE MEDICINE 09/27/21 Script Girl Relationship Specialty [place] [address] [place] [address] PCP - General Internal Medicine 05/07/16 [place] [address] [place] [address] Consulting Hematology/Oncology 01/28/12 [place] [address] [place] [address] Hematology/Oncology 03/30/21 Kristina Pete, RN Specialty Cosmetologist Apprentice HOSPICE & PALLIATIVE MEDICINE 05/22/21 Irene Han, CHEMICAL LAB SUPERVISOR.FORM RAISER [address] [place] [address] Palliative Medicine Provider HOSPICE & PALLIATIVE MEDICINE 06/28/21 Kylie Mosher, RN Specialty Cosmetologist Apprentice HOSPICE & PALLIATIVE MEDICINE 09/27/21 Script Girl Relationship Specialty [place] [address] [place] [address] PCP - General Internal Medicine 05/07/16 [place] [address] [place] [address] Consulting Hematology/Oncology 01/28/12 [place] [address] [place] [address] Hematology/Oncology 03/30/21 Kristina Pete, MAE Specialty Cosmetologist Apprentice HOSPICE & PALLIATIVE MEDICINE 05/22/21 Irene Han, CHEMICAL LAB SUPERVISOR.FORM RAISER [address] [place] [address] Palliative Medicine Provider HOSPICE & PALLIATIVE MEDICINE 06/28/21 Kylie Mosher, RN Specialty Cosmetologist Apprentice HOSPICE & PALLIATIVE MEDICINE 09/27/21 Script Girl Relationship Specialty Start [place] [address] PCP - General Internal Medicine 05/07/16 [place] [address] [place] [address] Consulting Hematology/Oncology 01/28/12 [place] [address] [place] [address] Hematology/Oncology 03/30/21 Kristina Pete, RN Specialty Cosmetologist Apprentice HOSPICE & PALLIATIVE MEDICINE 05/22/21 Irene Han, CHEMICAL LAB SUPERVISOR.FORM RAISER [address] [place] [address] Palliative Medicine Provider HOSPICE & PALLIATIVE MEDICINE 06/28/21 Kylie Mosher, MAE Specialty Cosmetologist Apprentice HOSPICE & PALLIATIVE MEDICINE 09/27/21 Script Girl Relationship Specialty [place] [address] [place] [address] PCP - General Internal Medicine 05/07/16 [place] [address] [place] [address] Consulting Hematology/Oncology 01/28/12 [place] [address] [place] [address] Hematology/Oncology 03/30/21 Kristina Pete, MAE Specialty Cosmetologist Apprentice HOSPICE & PALLIATIVE MEDICINE 05/22/21 Irene Han, CHEMICAL LAB SUPERVISOR.FORM RAISER [address] [place] [address] Palliative Medicine Provider HOSPICE & PALLIATIVE MEDICINE 06/28/21 Kylie Mosher, MAE Specialty Cosmetologist Apprentice HOSPICE & PALLIATIVE MEDICINE 09/27/21 Script Girl Relationship Specialty [place] [address] [place] [address] PCP - General Internal Medicine 05/07/16 [place] [address] [place] [address] Consulting Hematology/Oncology 01/28/12 [place] [address] [place] [address] Hematology/Oncology 03/30/21 Kristina Pete, RN Specialty Cosmetologist Apprentice HOSPICE & PALLIATIVE MEDICINE 05/22/21 Irene Han, CHEMICAL LAB SUPERVISOR.FORM RAISER [address] [place] [address] Palliative Medicine Provider HOSPICE & PALLIATIVE MEDICINE 06/28/21 Kylie Mosher, MAE Specialty Cosmetologist Apprentice HOSPICE & PALLIATIVE MEDICINE 09/27/21 Script Girl Relationship Specialty [place] [address] [place] [address] PCP - General Internal Medicine 05/07/16 [place] [address] [place] [address] Consulting Hematology/Oncology 01/28/12 [place] [address] [place] [address] Hematology/Oncology 03/30/21 Kristina Pete, MAE Specialty Cosmetologist Apprentice HOSPICE & PALLIATIVE MEDICINE 05/22/21 Irene Han, CHEMICAL LAB SUPERVISOR.FORM RAISER [address] [place] [address] Palliative Medicine Provider HOSPICE & PALLIATIVE MEDICINE 06/28/21 Kylie Mosher, RN Specialty Cosmetologist Apprentice HOSPICE & PALLIATIVE MEDICINE 09/27/21 Script Girl Relationship Specialty Start [place] [address] PCP - General Internal Medicine 05/07/16 [place] [address] [place] [address] Consulting Hematology/Oncology 01/28/12 [place] [address] [place] [address] Hematology/Oncology 03/30/21 Kristina Pete, RN Specialty Cosmetologist Apprentice HOSPICE & PALLIATIVE MEDICINE 05/22/21 Irene Han, CHEMICAL LAB SUPERVISOR.FORM RAISER [address] [place] [address] Palliative Medicine Provider HOSPICE & PALLIATIVE MEDICINE 06/28/21 Kylie Mosher, MAE Specialty Cosmetologist Apprentice HOSPICE & PALLIATIVE MEDICINE 09/27/21 Script Girl Relationship Specialty [place] [address] [place] [address] PCP - General Internal Medicine 05/07/16 [place] [address] [place] [address] Consulting Hematology/Oncology 01/28/12 [place] [address] Hematology/Oncology 03/30/21 Irene Han, CHEMICAL LAB SUPERVISOR.FORM RAISER [address] [place] [address] Palliative Medicine Provider HOSPICE & PALLIATIVE MEDICINE 06/28/21 Kylie Mosher RN Specialty Cosmetologist Apprentice HOSPICE & PALLIATIVE MEDICINE 09/27/21 Script Girl Relationship Specialty Start [place] [address] PCP - General Internal Medicine 05/07/16 [place] [address] [place] [address] Consulting Hematology/Oncology 01/28/12 [place] [address] [place] [address] Hematology/Oncology 03/30/21 Irene Han, CHEMICAL LAB SUPERVISOR.FORM RAISER [address] [place] [address] Palliative Medicine Provider HOSPICE & PALLIATIVE MEDICINE 06/28/21 Kylie Mosher, RN Specialty Cosmetologist Apprentice HOSPICE & PALLIATIVE MEDICINE 09/27/21 Script Girl Relationship Specialty Start Date [place] [address] PCP - General Internal Medicine 05/07/16 [place] [address] [place] [address] Consulting Hematology/Oncology 01/28/12 [place] [address] [place] [address] Hematology/Oncology 03/30/21 Irene Han, CHEMICAL LAB SUPERVISOR.FORM RAISER [address] [place] [address] Palliative Medicine Provider HOSPICE & PALLIATIVE MEDICINE 06/28/21 Kylie Mosher, RN Specialty Cosmetologist Apprentice HOSPICE & PALLIATIVE MEDICINE 09/27/21 Script Girl Relationship Specialty [place] [address] [place] [address] PCP - General Internal Medicine 05/07/16 [place] [address] [place] [address] Consulting Hematology/Oncology 01/28/12 [place] [address] [place] [address] Hematology/Oncology 03/30/21 Irene Han, CHEMICAL LAB SUPERVISOR.FORM RAISER [address] [place] [address] Palliative Medicine Provider HOSPICE & PALLIATIVE MEDICINE 06/28/21 Kylie Mosher, RN Specialty Cosmetologist Apprentice HOSPICE & PALLIATIVE MEDICINE 09/27/21 Script Girl Relationship Specialty [place] [address] [place] [address] PCP - General Internal Medicine 05/07/16 [place] [address] [place] [address] Consulting Hematology/Oncology 01/28/12 [place] [address] [place] [address] Hematology/Oncology 03/30/21 Irene Han, CHEMICAL LAB SUPERVISOR.FORM RAISER [address] [place] [id number] Palliative Medicine Provider HOSPICE & PALLIATIVE MEDICINE 06/28/21 Kylie Mosher, RN Specialty Cosmetologist Apprentice HOSPICE & PALLIATIVE MEDICINE 09/27/21 Script Girl Relationship Specialty [place] [address] [place] [address] PCP - General Internal Medicine 05/07/16 [place] [address] [place] [address] Consulting Hematology/Oncology 01/28/12 [place] [address] [place] [address] Hematology/Oncology 03/30/21 Irene Han, CHEMICAL LAB SUPERVISOR.FORM RAISER [address] [place] [address] Palliative Medicine Provider HOSPICE & PALLIATIVE MEDICINE 06/28/21 Kylie Mosher, RN Specialty Cosmetologist Apprentice HOSPICE & PALLIATIVE MEDICINE 09/27/21 Script Girl Relationship Specialty [place] [address] [place] [address] PCP - General Internal Medicine 05/07/16 [place] [address] [facility] [place] [address] Consulting Hematology/Oncology 01/28/12 [place] [address] [facility] [place] [address] Hematology/Oncology 03/30/21 Irene Han, CHEMICAL LAB SUPERVISOR.FORM RAISER [address] [place] [address] Palliative Medicine Provider HOSPICE & PALLIATIVE MEDICINE 06/28/21 Kylie Mosher, RN Specialty Cosmetologist Apprentice HOSPICE & PALLIATIVE MEDICINE 09/27/21 Script Girl Relationship Specialty [place] [address] [place] [address] PCP - General Internal Medicine 05/07/16 [place] [address] [facility] [place] [address] Consulting Hematology/Oncology 01/28/12 [place] [address] [place] [address] Hematology/Oncology 03/30/21 Irene Han, CHEMICAL LAB SUPERVISOR.FORM RAISER [address] [place] [id number] Palliative Medicine Provider HOSPICE & PALLIATIVE MEDICINE 06/28/21 Kylie Mosher, RN Specialty Cosmetologist Apprentice HOSPICE & PALLIATIVE MEDICINE 09/27/21 Script Girl Relationship Specialty [place] [address] [facility] [place] [address] PCP - General Internal Medicine 05/07/16 [place] [address] [place] [address] Consulting Hematology/Oncology 01/28/12 [place] [address] [facility] [place] [address] Hematology/Oncology 03/30/21 Irene Han, CHEMICAL LAB SUPERVISOR.FORM RAISER [address] [place] [id number] Palliative Medicine Provider HOSPICE & PALLIATIVE MEDICINE 06/28/21 Kylie Mosher, RN Specialty Cosmetologist Apprentice HOSPICE & PALLIATIVE MEDICINE 09/27/21 Script Girl Relationship Specialty [place] [address] [place] [address] PCP - General Internal Medicine 05/07/16 [place] [address] [place] [address] Consulting Hematology/Oncology 01/28/12 [place] [address] [place] [address] Hematology/Oncology 03/30/21 Kristina Pete, MAE Specialty Cosmetologist Apprentice HOSPICE & PALLIATIVE MEDICINE 05/22/21 08/06/22 Irene Han, CHEMICAL LAB SUPERVISOR.FORM RAISER [address] [place] [address] Palliative Medicine Provider HOSPICE & PALLIATIVE MEDICINE 06/28/21 Kylie Mosher RN Specialty Cosmetologist Apprentice HOSPICE & PALLIATIVE MEDICINE 09/27/21 Script Girl Relationship Specialty [place] [address] [address] [place] [id number] PCP - General Internal Medicine 05/07/16 [place] [address] [place] [address] Consulting Hematology/Oncology 01/28/12 [place] [address] [place] [address] Hematology/Oncology 03/30/21 Irene Han, CHEMICAL LAB SUPERVISOR.FORM RAISER [address] [place] [address] Palliative Medicine Provider HOSPICE & PALLIATIVE MEDICINE 06/28/21 Kylie Mosher RN Specialty Cosmetologist Apprentice HOSPICE & PALLIATIVE MEDICINE 09/27/21 Script Girl Relationship Specialty [place] [address] [place] [address] PCP - General Internal Medicine 05/07/16 [place] [address] [place] [address] Consulting Hematology/Oncology 01/28/12 [place] [address] [place] [address] Hematology/Oncology 03/30/21 Irene Han, LORY.FORM RAISER [address] [place] [id number] Palliative Medicine Provider HOSPICE & PALLIATIVE MEDICINE 06/28/21 Kylie Mosher RN Specialty Cosmetologist Apprentice HOSPICE & PALLIATIVE MEDICINE 09/27/21 Script Girl Relationship Specialty [place] [address] [place] [address] PCP - General Internal Medicine 05/07/16 [place] [address] [place] [address] Consulting Hematology/Oncology 01/28/12 [place] [address] [place] [address] Hematology/Oncology 03/30/21 Irene Han, CHEMICAL LAB SUPERVISOR.FORM RAISER [address] [place] [address] Palliative Medicine Provider HOSPICE & PALLIATIVE MEDICINE 06/28/21 Kylie Mosher RN Specialty Cosmetologist Apprentice HOSPICE & PALLIATIVE MEDICINE 09/27/21 Script Girl Relationship Specialty [place] [address] [place] [address] PCP - General Internal Medicine 05/07/16 [place] [address] [place] [address] Consulting Hematology/Oncology 01/28/12 [place] [address] [place] [address] Hematology/Oncology 03/30/21 Irene Han, CHEMICAL LAB SUPERVISOR.FORM RAISER [address] [place] [address] Palliative Medicine Provider HOSPICE & PALLIATIVE MEDICINE 06/28/21 Kylei Mosher, RN Specialty Cosmetologist Apprentice HOSPICE & PALLIATIVE MEDICINE 09/27/21 Script Girl Relationship Specialty [place] [address] [place] [address] PCP - General Internal Medicine 05/07/16 [place] [address] [place] [address] Consulting Hematology/Oncology 01/28/12 [place] [address] [place] [address] Hematology/Oncology 03/30/21 Irene Han, CHEMICAL LAB SUPERVISOR.FORM RAISER [address] [place] [address] Palliative Medicine Provider HOSPICE & PALLIATIVE MEDICINE 06/28/21 Kylie Mosher, RN Specialty Cosmetologist Apprentice HOSPICE & PALLIATIVE MEDICINE 09/27/21 Script Girl Relationship Specialty [place] [address] [facility] [place] [address] PCP - General Internal Medicine 05/07/16 [place] [address] [facility] [place] [address] Consulting Hematology/Oncology 01/28/12 [place] [address] [facility] [place] [address] Hematology/Oncology 03/30/21 Irene Han, CHEMICAL LAB SUPERVISOR.FORM RAISER [address] [place] [address] [id number] Palliative Medicine Provider HOSPICE & PALLIATIVE MEDICINE 06/28/21 Kylie Mosher, RN Specialty Cosmetologist Apprentice HOSPICE & PALLIATIVE MEDICINE 09/27/21 Script Girl Relationship Specialty [place] [address] [place] [address] PCP - General Internal Medicine 05/07/16 [place] [address] [facility] [place] [address] Consulting Hematology/Oncology 01/28/12 [place] [address] [facility] [place] [address] Hematology/Oncology 03/30/21 Irene Han, CHEMICAL LAB SUPERVISOR.FORM RAISER [address] [place], [place] [address], [place] [id number] Palliative Medicine Provider HOSPICE & PALLIATIVE MEDICINE 06/28/21 Kylie Mosher, RN Specialty Cosmetologist Apprentice HOSPICE & PALLIATIVE MEDICINE 09/27/21 Script Girl Relationship Specialty [place] [address] [place] [address] PCP - General Internal Medicine 05/07/16 [place] [address] [place] [address] Consulting Hematology/Oncology 01/28/12 [place] [address] [place] [address] Hematology/Oncology 03/30/21 Irene Han, LORY.FORM RAISER [address] [place] [address] Palliative Medicine Provider HOSPICE & PALLIATIVE MEDICINE 06/28/21 Kylie Mosher, RN Specialty Cosmetologist Apprentice HOSPICE & PALLIATIVE MEDICINE 09/27/21 Script Girl Relationship Specialty [place] [address] [facility] [place] [address] PCP - General Internal Medicine 05/07/16 [place] [address] [facility] [place] [address] Consulting Hematology/Oncology 01/28/12 [place] [address] [place] [address] Hematology/Oncology 03/30/21 Irene Han APRN.FORM RAISER [address] [place] [address] Palliative Medicine Provider HOSPICE & PALLIATIVE MEDICINE 06/28/21 Kylie Mosher, RN Specialty Cosmetologist Apprentice HOSPICE & PALLIATIVE MEDICINE 09/27/21 Script Girl Relationship Specialty [place] [address] [facility] [place] [address] PCP - General Internal Medicine 05/07/16 [place] [address] [facility] [place] [address] Consulting Hematology/Oncology 01/28/12 [place] [address] [place] [address] Hematology/Oncology 03/30/21 Irene Han, CHEMICAL LAB SUPERVISOR.FORM RAISER [address] [place] [address] Palliative Medicine Provider HOSPICE & PALLIATIVE MEDICINE 06/28/21 Kylie Mosher, RN Specialty Cosmetologist Apprentice HOSPICE & PALLIATIVE MEDICINE 09/27/21 Script Girl Relationship Specialty [place] [address] [facility] [place] [address] PCP - General Internal Medicine 05/07/16 [place] [address] [place] [address] Consulting Hematology/Oncology 01/28/12 [place] [address] [facility] [place] [address] Hematology/Oncology 03/30/21 Irene Han, CHEMICAL LAB SUPERVISOR.FORM RAISER [address] [place] [id number] Palliative Medicine Provider HOSPICE & PALLIATIVE MEDICINE 06/28/21 Kylie Mosher, RN Specialty Cosmetologist Apprentice HOSPICE & PALLIATIVE MEDICINE 09/27/21 Script Girl Relationship Specialty [place] [address] [place] [address] PCP - General Internal Medicine 05/07/16 [place] [address] [place] [address] Consulting Hematology/Oncology 01/28/12 [place] [address] [place] [address] Hematology/Oncology 03/30/21 Irene Han, CHEMICAL LAB SUPERVISOR.FORM RAISER [address] [place] [id number] Palliative Medicine Provider HOSPICE & PALLIATIVE MEDICINE 06/28/21 Kylie Mosher, RN Specialty Cosmetologist Apprentice HOSPICE & PALLIATIVE MEDICINE 09/27/21 Script Girl Relationship Specialty [place] [address] [place] [address] PCP - General Internal Medicine 05/07/16 [place] [address] [place] [address] Consulting Hematology/Oncology 01/28/12 [place] [address] [place] [address] Hematology/Oncology 03/30/21 Irene Han, CHEMICAL LAB SUPERVISOR.FORM RAISER [address] [place] [address] Palliative Medicine Provider HOSPICE & PALLIATIVE MEDICINE 06/28/21 Kylie Mosher, RN Specialty Cosmetologist Apprentice HOSPICE & PALLIATIVE MEDICINE 09/27/21 Team Status: Active Member Role Status Dates Bee Vail MD Primary Care Provider Active Team Status: Inactive Member Role Status Dates Bee Vail MD Primary Care Provider Active Keke Bright NP-C Attending Provider Active Script Girl Relationship Specialty Start Date End Date Bee Vail MD PCP - General Internal Medicine 05/07/16 Irene Han, CHEMICAL LAB SUPERVISOR.FORM RAISER [address] [place] [id number] Palliative Medicine Provider Hospice & Palliative Medicine 06/28/21 Kylie Mosher, RN Specialty Cosmetologist Apprentice Hospice & Palliative Medicine 09/27/21 Ruperto Ledezma MD [address] [place] [address] [place] [address] Physician Hematology 02/08/23 Ellyn Keller, CHEMICAL LAB SUPERVISOR.FORM RAISER [address] [place] [address] Referring Nurse Practitioner 02/26/23 Ellyn Keller, CHEMICAL LAB SUPERVISOR.FORM RAISER [address] [place] [address] Referring Nurse Practitioner 03/06/23 Fabiana Johnson LSW Compliance Review Specialist 03/08/23 Script Girl Relationship Specialty Start Date End Date Bee Vail MD PCP - General Internal Medicine 05/07/16 Irene Han, CHEMICAL LAB SUPERVISOR.FORM RAISER [address] [place] [address] Palliative Medicine Provider Hospice & Palliative Medicine 06/28/21 Kylie Mosher, RN Specialty Cosmetologist Apprentice Hospice & Palliative Medicine 09/27/21 Ruperto Ledezma MD [address] [place] [address] [place] [address] Physician Hematology 02/08/23 Ellyn Keller, CHEMICAL LAB SUPERVISOR.FORM RAISER [address] [facility] [place] [address] Referring Nurse Practitioner 02/26/23 Ellyn Keller, CHEMICAL LAB SUPERVISOR.FORM RAISER [address] [facility] [place] [address] Referring Nurse Practitioner 03/06/23 Fabiana Johnson LSW Compliance Review Specialist 03/08/23 Script Girl Relationship Specialty Start Date End Date Bee Vail MD PCP - General Internal Medicine 05/07/16 Irene Han, CHEMICAL LAB SUPERVISOR.FORM RAISER [address] [place] [address] Palliative Medicine Provider Hospice & Palliative Medicine 06/28/21 Kylie Mosher, RN Specialty Cosmetologist Apprentice Hospice & Palliative Medicine 09/27/21 Ruperto Ledezma MD [address] [place] [address] [place] [address] Physician Hematology 02/08/23 Ellyn Keller, CHEMICAL LAB SUPERVISOR.FORM RAISER [address] [facility] [place] [address] Referring Nurse Practitioner 02/26/23 Ellyn Keller, CHEMICAL LAB SUPERVISOR.FORM RAISER [address] [facility] [place] [address] Referring Nurse Practitioner 03/06/23 Fabiana Johnson LSW Compliance Review Specialist 03/08/23 Script Girl Relationship Specialty Start Date End Date Bee Vail MD PCP - General Internal Medicine 05/07/16 Irene Han, CHEMICAL LAB SUPERVISOR.FORM RAISER [address] [place] [address] Palliative Medicine Provider Hospice & Palliative Medicine 06/28/21 Kylie Mosher, RN Specialty Cosmetologist Apprentice Hospice & Palliative Medicine 09/27/21 Ruperto Ledezma MD [address] [place] [address] [place] [address] Physician Hematology 02/08/23 Ellyn Keller, CHEMICAL LAB SUPERVISOR.FORM RAISER [address] [facility] [place] [address] Referring Nurse Practitioner 02/26/23 Ellyn Keller, CHEMICAL LAB SUPERVISOR.FORM RAISER [address] [facility] [place] [address] Referring Nurse Practitioner 03/06/23 Fabiana Johnson LSW Compliance Review Specialist 03/08/23 Script Girl Relationship Specialty Start Date End Date Bee Vail MD [address] [facility] [place] [address] PCP - [employer] 02/18/22 Bee Vail MD [address] [facility] [place] [address] PCP - General Internal Medicine 06/26/22 Script Girl Relationship Specialty Start Date End Date Bee Vail MD PCP - General Internal Medicine 05/07/16 Irene Han, CHEMICAL LAB SUPERVISOR.FORM RAISER [address] [place] [address] Palliative Medicine Provider Hospice & Palliative Medicine 06/28/21 Kylie Mosher RN Specialty Cosmetologist Apprentice Hospice & Palliative Medicine 09/27/21 Ruperto Ledezma MD [address] [place] [address] [place] [address] Physician Hematology 02/08/23 Ellyn Keller, CHEMICAL LAB SUPERVISOR.FORM RAISER [address] [place] [address] [place] [address] Referring Nurse Practitioner 02/26/23 Ellyn Keller, CHEMICAL LAB SUPERVISOR.FORM RAISER [address] [facility] [place] [address] Referring Nurse Practitioner 03/06/23 Fabiana Johnson LSW Compliance Review Specialist 03/08/23 Script Girl Relationship Specialty Start Date End Date Bee Vail MD PCP - General Internal Medicine 05/07/16 Irene Han, CHEMICAL LAB SUPERVISOR.FORM RAISER [address] [place] [address] [id number] Palliative Medicine Provider Hospice & Palliative Medicine 06/28/21 Kylie Mosher, RN Specialty Cosmetologist Apprentice Hospice & Palliative Medicine 09/27/21 Ruperto Ledezma MD [address] [place] [address] [place] [address] Physician Hematology 02/08/23 Ellyn Keller, CHEMICAL LAB SUPERVISOR.FORM RAISER [address] [facility] [place] [address] Referring Nurse Practitioner 02/26/23 Ellyn Keller, CHEMICAL LAB SUPERVISOR.FORM RAISER [address] [facility] [place] [address] Referring Nurse Practitioner 03/06/23 Fabiana Johnson LSW Compliance Review Specialist 03/08/23 Script Girl Relationship Specialty Start Date End Date Bee Vail MD PCP - General Internal Medicine 05/07/16 Irene Han, CHEMICAL LAB SUPERVISOR.FORM RAISER [address] [place] [address] Palliative Medicine Provider Hospice & Palliative Medicine 06/28/21 Kylie Mosher, RN Specialty Cosmetologist Apprentice Hospice & Palliative Medicine 09/27/21 Ruperto Ledezma MD [address] [place] [address] [place] [address] Physician Hematology 02/08/23 Ellyn Keller, CHEMICAL LAB SUPERVISOR.FORM RAISER [address] [facility] [place] [address] Referring Nurse Practitioner 02/26/23 Ellyn Keller, CHEMICAL LAB SUPERVISOR.FORM RAISER [address] [facility] [place] [address] Referring Nurse Practitioner 03/06/23 Fabiana Johnson LSW Compliance Review Specialist 03/08/23 Script Girl Relationship Specialty Start Date End Date Bee Vail MD PCP - General Internal Medicine 05/07/16 Irene Han, CHEMICAL LAB SUPERVISOR.FORM RAISER [address] [place] [address] Palliative Medicine Provider Hospice & Palliative Medicine 06/28/21 Kylie Mosher, RN Specialty Cosmetologist Apprentice Hospice & Palliative Medicine 09/27/21 Ruperto Ledezma MD [address] [place] [address] [place] [address] Physician Hematology 02/08/23 Ellyn Keller, CHEMICAL LAB SUPERVISOR.FORM RAISER [address] [facility] [place] [address] Referring Nurse Practitioner 02/26/23 Ellyn Keller, CHEMICAL LAB SUPERVISOR.FORM RAISER [address] [facility] [place] [address] Referring Nurse Practitioner 03/06/23 Fabiana Johnson LSW Compliance Review Specialist 03/08/23 Script Girl Relationship Specialty Start Date End Date Bee Vail MD PCP - General Internal Medicine 05/07/16 Irene Han, CHEMICAL LAB SUPERVISOR.FORM RAISER [address] [place] [address] Palliative Medicine Provider Hospice & Palliative Medicine 06/28/21 Kylie Mosher, RN Specialty Cosmetologist Apprentice Hospice & Palliative Medicine 09/27/21 Ruperto Ledezma MD [address] [place] [address] [place] [address] Physician Hematology 02/08/23 Ellyn Keller, CHEMICAL LAB SUPERVISOR.FORM RAISER [address] [facility] [place] [address] Referring Nurse Practitioner 02/26/23 Ellyn Keller, CHEMICAL LAB SUPERVISOR.FORM RAISER [address] [facility] [place] [address] Referring Nurse Practitioner 03/06/23 Fabiana Johnson LSW Compliance Review Specialist 03/08/23 Script Girl Relationship Specialty Start Date End Date Bee Vail MD PCP - General Internal Medicine 05/07/16 Irene Han, CHEMICAL LAB SUPERVISOR.FORM RAISER [address] [place] [address] Palliative Medicine Provider Hospice & Palliative Medicine 06/28/21 Kylie Mosher, RN Specialty Cosmetologist Apprentice Hospice & Palliative Medicine 09/27/21 Ruperto Ledezma MD [address] [place] [address] [place] [address] Physician Hematology 02/08/23 Ellyn Keller, CHEMICAL LAB SUPERVISOR.FORM RAISER [address] [facility] [place] [address] Referring Nurse Practitioner 02/26/23 Ellyn Kellre, CHEMICAL LAB SUPERVISOR.FORM RAISER [address] [facility] [place] [address] Referring Nurse Practitioner 03/06/23 Fabiana Johnson LSW Compliance Review Specialist 03/08/23 Script Girl Relationship Specialty Start Date End Date Bee Vail MD PCP - General Internal Medicine 05/07/16 Irene Han, CHEMICAL LAB SUPERVISOR.FORM RAISER [address] [place] [address] Palliative Medicine Provider Hospice & Palliative Medicine 06/28/21 Kylie Mosher, RN Specialty Cosmetologist Apprentice Hospice & Palliative Medicine 09/27/21 Ruperto Ledemza MD [address] [place] [address] [place] [address] Physician Hematology 02/08/23 Ellyn Keller, CHEMICAL LAB SUPERVISOR.FORM RAISER [address] [facility] [place] [address] Referring Nurse Practitioner 02/26/23 Ellyn Keller, CHEMICAL LAB SUPERVISOR.FORM RAISER [address] [facility] [place] [address] Referring Nurse Practitioner 03/06/23 Fabiana Johnson LSW Compliance Review Specialist 03/08/23 Script Girl Relationship Specialty Start Date End Date Bee Vail MD PCP - General Internal Medicine 05/07/16 Irene Han, CHEMICAL LAB SUPERVISOR.FORM RAISER [address] [place] [address] Palliative Medicine Provider Hospice & Palliative Medicine 06/28/21 Kylie Mosher, RN Specialty Cosmetologist Apprentice Hospice & Palliative Medicine 09/27/21 Ruperto Ledezma MD [address] [facility] [place] [address] Physician Hematology 02/08/23 Ellyn Keller, CHEMICAL LAB SUPERVISOR.FORM RAISER [address] [facility] [place] [address] Referring Nurse Practitioner 02/26/23 Ellyn Keller, CHEMICAL LAB SUPERVISOR.FORM RAISER [address] [facility] [place] [address] Referring Nurse Practitioner 03/06/23 Fabiana Johnson LSW Compliance Review Specialist 03/08/23 Script Girl Relationship Specialty Start Date End Date Bee Vail MD PCP - General Internal Medicine 05/07/16 Irene Han, CHEMICAL LAB SUPERVISOR.FORM RAISER [address] [place] [address] Palliative Medicine Provider Hospice & Palliative Medicine 06/28/21 Kylie Mosher RN Specialty Cosmetologist Apprentice Hospice & Palliative Medicine 09/27/21 Ruperto Ledezma MD [address] [place] [address] [place] [address] Physician Hematology 02/08/23 Ellyn Keller, CHEMICAL LAB SUPERVISOR.FORM RAISER [address] [facility] [place] [address] Referring Nurse Practitioner 02/26/23 Ellyn Keller, CHEMICAL LAB SUPERVISOR.FORM RAISER [address] [facility] [place] [address] Referring Nurse Practitioner 03/06/23 Fabiana Johnson LSW Compliance Review Specialist 03/08/23 Script Girl Relationship Specialty Start Date End Date Bee Vail MD PCP - General Internal Medicine 05/07/16 Irene Han, CHEMICAL LAB SUPERVISOR.FORM RAISER [address] [place] [address] Palliative Medicine Provider Hospice & Palliative Medicine 06/28/21 Kylie Mosher, RN Specialty Cosmetologist Apprentice Hospice & Palliative Medicine 09/27/21 Ruperto Ledezma MD [address] [facility] [place] [address] Physician Hematology 02/08/23 Ellyn Keller, CHEMICAL LAB SUPERVISOR.FORM RAISER [address] [place] [address] [place] [address] Referring Nurse Practitioner 02/26/23 Ellyn Keller, CHEMICAL LAB SUPERVISOR.FORM RAISER [address] [place] [address] [place] [address] Referring Nurse Practitioner 03/06/23 Fabiana Johnson LSW Compliance Review Specialist 03/08/23 Script Girl Relationship Specialty Start Date End Date Bee Vail MD PCP - General Internal Medicine 05/07/16 Irene Han, CHEMICAL LAB SUPERVISOR.FORM RAISER [address] [place] [address] Palliative Medicine Provider Hospice & Palliative Medicine 06/28/21 Kylie Mosher, RN Specialty Cosmetologist Apprentice Hospice & Palliative Medicine 09/27/21 Ruperto Ledezma MD [address] [facility] [place] [address] Physician Hematology 02/08/23 Ellyn Keller, CHEMICAL LAB SUPERVISOR.FORM RAISER [address] [place] [address] [place] [address] Referring Nurse Practitioner 02/26/23 Ellyn Keller, CHEMICAL LAB SUPERVISOR.FORM RAISER [address] [facility] [place] [address] Referring Nurse Practitioner 03/06/23 Fabiana Johnson LSW Compliance Review Specialist 03/08/23 Script Girl Relationship Specialty Start Date End Date Bee Vial MD PCP - General Internal Medicine 05/07/16 Irene Han, CHEMICAL LAB SUPERVISOR.FORM RAISER [address] [place] [address] Palliative Medicine Provider Hospice & Palliative Medicine 06/28/21 Kylie Mosher, RN Specialty Cosmetologist Apprentice Hospice & Palliative Medicine 09/27/21 Ruperto Ledezma MD [address] [place] [address] [place] [address] Physician Hematology 02/08/23 Ellyn Keller, CHEMICAL LAB SUPERVISOR.FORM RAISER [address] [facility] [place] [address] Referring Nurse Practitioner 02/26/23 Ellyn Kelelr, CHEMICAL LAB SUPERVISOR.FORM RAISER [address] [facility] [place] [address] Referring Nurse Practitioner 03/06/23 Fabiana Johnson LSW Compliance Review Specialist 03/08/23 Script Girl Relationship Specialty Start Date End Date Bee Vail MD PCP - General Internal Medicine 05/07/16 Irene Han, CHEMICAL LAB SUPERVISOR.FORM RAISER [address] [place] [address] [id number] Palliative Medicine Provider Hospice & Palliative Medicine 06/28/21 Kylie Mosher, RN Specialty Cosmetologist Apprentice Hospice & Palliative Medicine 09/27/21 Ruperto Ledezma MD [address] [place] [address] [place] [address] Physician Hematology 02/08/23 Ellyn Keller, CHEMICAL LAB SUPERVISOR.FORM RAISER [address] [facility] [address] Referring Nurse Practitioner 02/26/23 Ellyn Keller, CHEMICAL LAB SUPERVISOR.FORM RAISER [address] [facility] [place] [address] Referring Nurse Practitioner 03/06/23 Fabiana Johnson LSW Compliance Review Specialist 03/08/23 Script Girl Relationship Specialty Start Date End Date Bee Vail MD PCP - General Internal Medicine 05/07/16 Irene Han, CHEMICAL LAB SUPERVISOR.FORM RAISER [address] [place] [address] Palliative Medicine Provider Hospice & Palliative Medicine 06/28/21 Kylie Mosher, RN Specialty Cosmetologist Apprentice Hospice & Palliative Medicine 09/27/21 Ruperto Ledezma MD [address] [place] [address] [place] [address] Physician Hematology 02/08/23 Ellyn Keller, CHEMICAL LAB SUPERVISOR.FORM RAISER [address] [facility] [place] [address] Referring Nurse Practitioner 02/26/23 Ellyn Keller, CHEMICAL LAB SUPERVISOR.FORM RAISER [address] [facility] [place] [address] Referring Nurse Practitioner 03/06/23 Fabiana Johnson, TRAVEL ACCOMMODATIONS RATER Compliance Review Specialist 03/08/23 Script Girl Relationship Specialty Start Date End Date Bee Vail MD PCP - General Internal Medicine 05/07/16 Irene Han, CHEMICAL LAB SUPERVISOR.FORM RAISER [address] [place] [address] Palliative Medicine Provider Hospice & Palliative Medicine 06/28/21 Kylie Mosher, RN Specialty Cosmetologist Apprentice Hospice & Palliative Medicine 09/27/21 Ruperto Ledezma MD [address] [place] [address] [address] [place], [place] [id number] Physician Hematology 02/08/23 Ellyn Keller, CHEMICAL LAB SUPERVISOR.FORM RAISER [address] [facility] [place] [address] Referring Nurse Practitioner 02/26/23 Ellyn Keller, CHEMICAL LAB SUPERVISOR.FORM RAISER [address] [facility] [place] [address] Referring Nurse Practitioner 03/06/23 Fabiana Johnson LSW Compliance Review Specialist 03/08/23 Script Girl Relationship Specialty Start Date End Date Bee Vail MD PCP - General Internal Medicine 05/07/16 Irene Han, CHEMICAL LAB SUPERVISOR.FORM RAISER [address] [place] [address] Palliative Medicine Provider Hospice & Palliative Medicine 06/28/21 Kylie Mosher, RN Specialty Cosmetologist Apprentice Hospice & Palliative Medicine 09/27/21 Ruperto Ledezma MD [address] [place] [address] [place] [address] Physician Hematology 02/08/23 Ellyn Keller, CHEMICAL LAB SUPERVISOR.FORM RAISER [address] [facility] [place] [address] Referring Nurse Practitioner 02/26/23 Ellyn Keller, CHEMICAL LAB SUPERVISOR.FORM RAISER [address] [facility] [place] [address] Referring Nurse Practitioner 03/06/23 Fabiana Johnson LSW Compliance Review Specialist 03/08/23 Script Girl Relationship Specialty Start Date End Date Bee Vail MD PCP - General Internal Medicine 05/07/16 Irene Han, CHEMICAL LAB SUPERVISOR.FORM RAISER [address] [place] [address] Palliative Medicine Provider Hospice & Palliative Medicine 06/28/21 Kylie Mosher, RN Specialty Cosmetologist Apprentice Hospice & Palliative Medicine 09/27/21 Ruperto Ledezma MD [address] [place] [address] [place] [address] Physician Hematology 02/08/23 Ellyn Keller, CHEMICAL LAB SUPERVISOR.FORM RAISER [address] [facility] [place] [address] Referring Nurse Practitioner 02/26/23 Ellyn Keller, CHEMICAL LAB SUPERVISOR.FORM RAISER [address] [facility] [place] [address] Referring Nurse Practitioner 03/06/23 Fabiana Johnson LSW Compliance Review Specialist 03/08/23 Script Girl Relationship Specialty Start Date End Date Bee Vail MD PCP - General Internal Medicine 05/07/16 Irene Han, CHEMICAL LAB SUPERVISOR.FORM RAISER [address] [place] [address] Palliative Medicine Provider Hospice & Palliative Medicine 06/28/21 Kylie Mosher, RN Specialty Cosmetologist Apprentice Hospice & Palliative Medicine 09/27/21 Ruperto Ledezma MD [address] [place] [address] [place] [address] Physician Hematology 02/08/23 Ellyn Keller, CHEMICAL LAB SUPERVISOR.FORM RAISER [address] [facility] [place] [address] Referring Nurse Practitioner 02/26/23 Ellyn Keller, CHEMICAL LAB SUPERVISOR.FORM RAISER [address] [facility] [place] [address] Referring Nurse Practitioner 03/06/23 Fabiana Johnson LSW Compliance Review Specialist 03/08/23 Script Girl Relationship Specialty Start Date End Date Bee Vail MD PCP - General Internal Medicine 05/07/16 Irene Han, CHEMICAL LAB SUPERVISOR.FORM RAISER [address] [place] [address] Palliative Medicine Provider Hospice & Palliative Medicine 06/28/21 Kylie Mosher, RN Specialty Cosmetologist Apprentice Hospice & Palliative Medicine 09/27/21 Ruperto Ledezma MD [address] [place] [address] [place] [address] Physician Hematology 02/08/23 Ellyn Keller, CHEMICAL LAB SUPERVISOR.FORM RAISER [address] [facility] [place] [address] Referring Nurse Practitioner 02/26/23 Ellyn Keller, CHEMICAL LAB SUPERVISOR.FORM RAISER [address] [facility] [place] [address] Referring Nurse Practitioner 03/06/23 Fabiana Johnson LSW Compliance Review Specialist 03/08/23 Script Girl Relationship Specialty Start Date End Date Bee Vail MD PCP - General Internal Medicine 05/07/16 Irene Han, CHEMICAL LAB SUPERVISOR.FORM RAISER [address] [place] [address] Palliative Medicine Provider Hospice & Palliative Medicine 06/28/21 Kylie Mosher, RN Specialty Cosmetologist Apprentice Hospice & Palliative Medicine 09/27/21 Ruperto Ledezma MD [address] [place] [address] [place] [address] Physician Hematology 02/08/23 Ellyn Keller, CHEMICAL LAB SUPERVISOR.FORM RAISER [address] [facility] [place] [address] Referring Nurse Practitioner 02/26/23 Ellyn Keller, CHEMICAL LAB SUPERVISOR.FORM RAISER [address] [facility] [place] [address] Referring Nurse Practitioner 03/06/23 Fabiana Johnson LSW Compliance Review Specialist 03/08/23 Script Girl Relationship Specialty Start Date End Date Bee Vail MD PCP - General Internal Medicine 05/07/16 Irene Han, CHEMICAL LAB SUPERVISOR.FORM RAISER [address] [place] [address] Palliative Medicine Provider Hospice & Palliative Medicine 06/28/21 Kylie Mosher, RN Specialty Cosmetologist Apprentice Hospice & Palliative Medicine 09/27/21 Ruperto Ledezma MD [address] [place] [address] [place] [address] Physician Hematology 02/08/23 Ellyn Keller, CHEMICAL LAB SUPERVISOR.FORM RAISER [address] [facility] [place] [address] Referring Nurse Practitioner 02/26/23 Ellyn Keller, CHEMICAL LAB SUPERVISOR.FORM RAISER [address] [facility] [place] [address] Referring Nurse Practitioner 03/06/23 Fabiana Johnson LSW Compliance Review Specialist 03/08/23 Script Girl Relationship Specialty Start Date End Date Bee Vail MD PCP - General Internal Medicine 05/07/16 Irene Han, CHEMICAL LAB SUPERVISOR.FORM RAISER [address] [place] [address] Palliative Medicine Provider Hospice & Palliative Medicine 06/28/21 Kylie Mosher, RN Specialty Cosmetologist Apprentice Hospice & Palliative Medicine 09/27/21 Ruperto Ledezma MD [address] [facility] [place] [address] Physician Hematology 02/08/23 Ellyn Keller, CHEMICAL LAB SUPERVISOR.FORM RAISER [address] [facility] [place] [address] Referring Nurse Practitioner 02/26/23 Crockett, Ellyn, CHEMICAL LAB SUPERVISOR.FORM RAISER [address] [facility] [place] [address] Referring Nurse Practitioner 03/06/23 Fabiana Johnson, TRAVEL ACCOMMODATIONS RATER Compliance Review Specialist 03/08/23 Script Girl Relationship Specialty Start Date End Date Bee Vail MD PCP - General Internal Medicine 05/07/16 Irene Han, CHEMICAL LAB SUPERVISOR.FORM RAISER [address] [place] [address] [id number] Palliative Medicine Provider Hospice & Palliative Medicine 06/28/21 Kylie Mosher RN Specialty Cosmetologist Apprentice Hospice & Palliative Medicine 09/27/21 Ruperto Ledezma MD [address] [place] [address] [place] [address] Physician Hematology 02/08/23 Ellyn Keller, CHEMICAL LAB SUPERVISOR.FORM RAISER [address] [facility] [place] [address] Referring Nurse Practitioner 02/26/23 Ellyn Keller, CHEMICAL LAB SUPERVISOR.FORM RAISER [address] [facility] [place] [address] Referring Nurse Practitioner 03/06/23 Fabiana Johnson LSW Compliance Review Specialist 03/08/23 Script Girl Relationship Specialty Start Date End Date Bee Vail MD PCP - General Internal Medicine 05/07/16 Irene Han, CHEMICAL LAB SUPERVISOR.FORM RAISER [address] [place] [address] [id number] Palliative Medicine Provider Hospice & Palliative Medicine 06/28/21 Kylie Mosher, RN Specialty Cosmetologist Apprentice Hospice & Palliative Medicine 09/27/21 Ruperto Ledezma MD [address] [place] [address] [place] [address] Physician Hematology 02/08/23 Ellyn Keller, CHEMICAL LAB SUPERVISOR.FORM RAISER [address] [facility] [place] [address] Referring Nurse Practitioner 02/26/23 Ellyn Keller, CHEMICAL LAB SUPERVISOR.FORM RAISER [address] [facility] [place] [address] Referring Nurse Practitioner 03/06/23 Fabiana Johnson LSW Compliance Review Specialist 03/08/23 Script Girl Relationship Specialty Start Date End Date Bee Vail MD PCP - General Internal Medicine 05/07/16 Irene Han, CHEMICAL LAB SUPERVISOR.FORM RAISER [address] [place] [address] Palliative Medicine Provider Hospice & Palliative Medicine 06/28/21 Kylie Mosher, RN Specialty Cosmetologist Apprentice Hospice & Palliative Medicine 09/27/21 Ruperto Ledezma MD [address] [place] [address] [place] [address] Physician Hematology 02/08/23 Ellyn Keller, CHEMICAL LAB SUPERVISOR.FORM RAISER [address] [facility] [place] [address] Referring Nurse Practitioner 02/26/23 Ellyn Keller, CHEMICAL LAB SUPERVISOR.FORM RAISER [address] [facility] [place] [address] Referring Nurse Practitioner 03/06/23 Fabiana Johnson, TRAVEL ACCOMMODATIONS RATER Compliance Review Specialist 03/08/23 Script Girl Relationship Specialty Start Date End Date Bee Vail MD PCP - General Internal Medicine 05/07/16 Irene Han, CHEMICAL LAB SUPERVISOR.FORM RAISER [address] [place] [id number] Palliative Medicine Provider Hospice & Palliative Medicine 06/28/21 Kylie Mosher, RN Specialty Cosmetologist Apprentice Hospice & Palliative Medicine 09/27/21 Ruperto Ledezma MD [address] [place] [address] [place] [address] Physician Hematology 02/08/23 Ellyn Keller, CHEMICAL LAB SUPERVISOR.FORM RAISER [address] [facility] [place] [address] Referring Nurse Practitioner 02/26/23 Ellyn Keller, CHEMICAL LAB SUPERVISOR.FORM RAISER [address] [facility] [place] [address] Referring Nurse Practitioner 03/06/23 Fabiana Johnson, TRAVEL ACCOMMODATIONS RATER Compliance Review Specialist 03/08/23 Script Girl Relationship Specialty Start Date End Date Bee Vail MD PCP - General Internal Medicine 05/07/16 Irene Han, CHEMICAL LAB SUPERVISOR.FORM RAISER [address] [place] [address] Palliative Medicine Provider Hospice & Palliative Medicine 06/28/21 Kylie Mosher, RN Specialty Cosmetologist Apprentice Hospice & Palliative Medicine 09/27/21 Ruperto Ledezma MD [address] [place] [address] [place] [address] Physician Hematology 02/08/23 Ellyn Keller, CHEMICAL LAB SUPERVISOR.FORM RAISER [address] [facility] [place] [address] Referring Nurse Practitioner 02/26/23 Ellyn Keller, CHEMICAL LAB SUPERVISOR.FORM RAISER [address] [place] [address] [place] [address] Referring Nurse Practitioner 03/06/23 Fabiana Johnson, TRAVEL ACCOMMODATIONS RATER Compliance Review Specialist 03/08/23 Script Girl Relationship Specialty Start Date End Date Bee Vail MD PCP - General Internal Medicine 05/07/16 Irene Han, CHEMICAL LAB SUPERVISOR.FORM RAISER [address] [place] [address] Palliative Medicine Provider Hospice & Palliative Medicine 06/28/21 Kylie Mosher, RN Specialty Cosmetologist Apprentice Hospice & Palliative Medicine 09/27/21 Ruperto Ledezma MD [address] [place] [address] [place] [address] Physician Hematology 02/08/23 Ellyn Keller, CHEMICAL LAB SUPERVISOR.FORM RAISER [address] [place] [address] [place] [address] Referring Nurse Practitioner 02/26/23 Ellyn Keller, CHEMICAL LAB SUPERVISOR.FORM RAISER [address] [facility] [place] [address] Referring Nurse Practitioner 03/06/23 Fabiana Johnson, TRAVEL ACCOMMODATIONS RATER Compliance Review Specialist 03/08/23 Script Girl Relationship Specialty Start Date End Date Bee Vail MD PCP - General Internal Medicine 05/07/16 Irene Han, CHEMICAL LAB SUPERVISOR.FORM RAISER [address] [place] [address] Palliative Medicine Provider Hospice & Palliative Medicine 06/28/21 Kylie Mosher, RN Specialty Cosmetologist Apprentice Hospice & Palliative Medicine 09/27/21 Ruperto Ledezma MD [address] [place] [address] [place] [address] Physician Hematology 02/08/23 Ellyn Keller, CHEMICAL LAB SUPERVISOR.FORM RAISER [address] [facility] [place] [address] Referring Nurse Practitioner 02/26/23 Ellyn Keller, CHEMICAL LAB SUPERVISOR.FORM RAISER [address] [facility] [place] [address] Referring Nurse Practitioner 03/06/23 Fabiana Johnson LSW Compliance Review Specialist 03/08/23 Script Girl Relationship Specialty Start Date End Date Bee Vail MD PCP - General Internal Medicine 05/07/16 Irene Han, CHEMICAL LAB SUPERVISOR.FORM RAISER [address] [place] [address] Palliative Medicine Provider Hospice & Palliative Medicine 06/28/21 Kylie Mosher, RN Specialty Cosmetologist Apprentice Hospice & Palliative Medicine 09/27/21 Ruperto Ledezma MD [address] [place] [address] [place] [address] Physician Hematology 02/08/23 Ellyn Keller, CHEMICAL LAB SUPERVISOR.FORM RAISER [address] [facility] [place] [address] Referring Nurse Practitioner 02/26/23 Ellyn Keller, CHEMICAL LAB SUPERVISOR.FORM RAISER [address] [facility] [place] [address] Referring Nurse Practitioner 03/06/23 Fabiana Johnson LSW Compliance Review Specialist 03/08/23 Script Girl Relationship Specialty Start Date End Date Bee Vail MD PCP - General Internal Medicine 05/07/16 Irene Han, CHEMICAL LAB SUPERVISOR.FORM RAISER [address] [place] [address], [place] [address] Palliative Medicine Provider Hospice & Palliative Medicine 06/28/21 Kylie Mosher, RN Specialty Cosmetologist Apprentice Hospice & Palliative Medicine 09/27/21 Ruperto Ledezma MD [address] [place] [address] [place] [address] Physician Hematology 02/08/23 Ellyn Keller, CHEMICAL LAB SUPERVISOR.FORM RAISER [address] [facility] [place] [address] Referring Nurse Practitioner 02/26/23 Ellyn Keller, CHEMICAL LAB SUPERVISOR.FORM RAISER [address] [facility] [place] [address] Referring Nurse Practitioner 03/06/23 Fabiana Johnson LSW Compliance Review Specialist 03/08/23 Script Girl Relationship Specialty Start Date End Date Bee Vail MD PCP - General Internal Medicine 05/07/16 Irene Han, CHEMICAL LAB SUPERVISOR.FORM RAISER [address] [place] [address] Palliative Medicine Provider Hospice & Palliative Medicine 06/28/21 Kylie Mosher, RN Specialty Cosmetologist Apprentice Hospice & Palliative Medicine 09/27/21 Ruperto Ledezma MD [address] [place] [address] [place] [address] Physician Hematology 02/08/23 Ellyn Keller, CHEMICAL LAB SUPERVISOR.FORM RAISER [address] [facility] [place] [address] Referring Nurse Practitioner 02/26/23 Ellyn Keller, CHEMICAL LAB SUPERVISOR.FORM RAISER [address] [facility] [place] [address] Referring Nurse Practitioner 03/06/23 Fabiana Johnson LSW Compliance Review Specialist 03/08/23 Script Girl Relationship Specialty Start Date End Date Bee Vail MD PCP - General Internal Medicine 05/07/16 Irene Han, CHEMICAL LAB SUPERVISOR.FORM RAISER [address] [place] [address] Palliative Medicine Provider Hospice & Palliative Medicine 06/28/21 Kylie Mosher, RN Specialty Cosmetologist Apprentice Hospice & Palliative Medicine 09/27/21 Ruperto Ledezma MD [address] [facility] [place] [address] Physician Hematology 02/08/23 Ellyn Keller, CHEMICAL LAB SUPERVISOR.FORM RAISER [address] [facility] [place] [address] Referring Nurse Practitioner 02/26/23 Ellyn Keller, CHEMICAL LAB SUPERVISOR.FORM RAISER [address] [facility] [place] [address] Referring Nurse Practitioner 03/06/23 Fabiana Johnson LSW Compliance Review Specialist 03/08/23 Script Girl Relationship Specialty Start Date End Date Bee Vail MD PCP - General Internal Medicine 05/07/16 Irene Han, CHEMICAL LAB SUPERVISOR.FORM RAISER [address] [place] [address] [id number] Palliative Medicine Provider Hospice & Palliative Medicine 06/28/21 Kylie Mosher, RN Specialty Cosmetologist Apprentice Hospice & Palliative Medicine 09/27/21 Ruperto Ledezma MD [address] [place] [address] [place] [address] Physician Hematology 02/08/23 Ellyn Keller, CHEMICAL LAB SUPERVISOR.FORM RAISER [address] [facility] [place] [address] Referring Nurse Practitioner 02/26/23 Ellyn Keller, CHEMICAL LAB SUPERVISOR.FORM RAISER [address] [facility] [place] [address] Referring Nurse Practitioner 03/06/23 Fabiana Johnson LSW Compliance Review Specialist 03/08/23 Script Girl Relationship Specialty Start Date End Date Bee Vail MD PCP - General Internal Medicine 05/07/16 Irene Han, CHEMICAL LAB SUPERVISOR.FORM RAISER [address] [place] [address] [id number] Palliative Medicine Provider Hospice & Palliative Medicine 06/28/21 Kylie Mosher, RN Specialty Cosmetologist Apprentice Hospice & Palliative Medicine 09/27/21 Rupetro Ledezma MD [address] [place] [address] [place] [address] Physician Hematology 02/08/23 Ellyn Keller, CHEMICAL LAB SUPERVISOR.FORM RAISER [address] [facility] [place] [address] Referring Nurse Practitioner 02/26/23 Ellyn Keller, CHEMICAL LAB SUPERVISOR.FORM RAISER [address] [facility] [place] [address] Referring Nurse Practitioner 03/06/23 Fabiana Johnson LSW Compliance Review Specialist 03/08/23 Script Girl Relationship Specialty Start Date End Date Bee Vail MD PCP - General Internal Medicine 05/07/16 Irene Han, CHEMICAL LAB SUPERVISOR.FORM RAISER [facility] [place] [address] Palliative Medicine Provider Hospice & Palliative Medicine 06/28/21 Kylie Mosher, RN Specialty Cosmetologist Apprentice Hospice & Palliative Medicine 09/27/21 Ruperto Ledezma MD [address] [place] [address] [place] [address] Physician Hematology 02/08/23 Ellyn Keller, CHEMICAL LAB SUPERVISOR.FORM RAISER [address] [facility] [place] [address] Referring Nurse Practitioner 02/26/23 Ellyn Kelelr, CHEMICAL LAB SUPERVISOR.FORM RAISER [address] [facility] [place] [address] Referring Nurse Practitioner 03/06/23 Fabiana Johnson, TRAVEL ACCOMMODATIONS RATER Compliance Review Specialist 03/08/23 Script Girl Relationship Specialty Start Date End Date Bee Vail MD PCP - General Internal Medicine 05/07/16 Irene Han, CHEMICAL LAB SUPERVISOR.FORM RAISER [address] [place] [address] Palliative Medicine Provider Hospice & Palliative Medicine 06/28/21 Kylie Mosher, RN Specialty Cosmetologist Apprentice Hospice & Palliative Medicine 09/27/21 Ruperto Ledezma MD [address] [place] [address] [place] [address] Physician Hematology 02/08/23 Ellyn Keller, CHEMICAL LAB SUPERVISOR.FORM RAISER [address] [facility] [place] [address] Referring Nurse Practitioner 02/26/23 Ellyn Keller, CHEMICAL LAB SUPERVISOR.FORM RAISER [address] [facility] [place] [address] Referring Nurse Practitioner 03/06/23 Fabiana Johnson LSW Compliance Review Specialist 03/08/23 Script Girl Relationship Specialty Start Date End Date Bee Vail MD PCP - General Internal Medicine 05/07/16 Irene Han, CHEMICAL LAB SUPERVISOR.FORM RAISER [address] [place] [address] Palliative Medicine Provider Hospice & Palliative Medicine 06/28/21 Kylie Mosher, RN Specialty Cosmetologist Apprentice Hospice & Palliative Medicine 09/27/21 Ruperto Ledezma MD [address] [place] [address] [place] [address] Physician Hematology 02/08/23 Ellyn Keller, CHEMICAL LAB SUPERVISOR.FORM RAISER [address] [facility] [place] [address] Referring Nurse Practitioner 02/26/23 Ellyn Keller, CHEMICAL LAB SUPERVISOR.FORM RAISER [address] [place] [address] [place] [address] Referring Nurse Practitioner 03/06/23 Fabiana Johnson, TRAVEL ACCOMMODATIONS RATER Compliance Review Specialist 03/08/23 Script Girl Relationship Specialty Start Date End Date Bee Vail MD PCP - General Internal Medicine 05/07/16 Irene Han, CHEMICAL LAB SUPERVISOR.FORM RAISER [address] [place] [address] Palliative Medicine Provider Hospice & Palliative Medicine 06/28/21 Kylie Mosher, RN Specialty Cosmetologist Apprentice Hospice & Palliative Medicine 09/27/21 Ruperto Ledezma MD [address] [place] [address] [place] [address] Physician Hematology 02/08/23 Ellyn Keller, CHEMICAL LAB SUPERVISOR.FORM RAISER [address] [place] [address] [place] [address] Referring Nurse Practitioner 02/26/23 Ellyn Keller, CHEMICAL LAB SUPERVISOR.FORM RAISER [address] [facility] [place] [address] Referring Nurse Practitioner 03/06/23 Fabiana Johnson, TRAVEL ACCOMMODATIONS RATER Compliance Review Specialist 03/08/23 Script Girl Relationship Specialty Start Date End Date Bee Vail MD PCP - General Internal Medicine 05/07/16 Irene Han, CHEMICAL LAB SUPERVISOR.FORM RAISER [address] [place] [address] Palliative Medicine Provider Hospice & Palliative Medicine 06/28/21 Kylie Mosher, RN Specialty Cosmetologist Apprentice Hospice & Palliative Medicine 09/27/21 Ruperto Ledezma MD [address] [place] [address] [place] [address] Physician Hematology 02/08/23 Ellyn Keller, CHEMICAL LAB SUPERVISOR.FORM RAISER [address] [place] [address] [place] [address] Referring Nurse Practitioner 02/26/23 Ellyn Keller, CHEMICAL LAB SUPERVISOR.FORM RAISER [address] [place] [address] [place] [address] Referring Nurse Practitioner 03/06/23 Fabiana Johnson LSW Compliance Review Specialist 03/08/23 Script Girl Relationship Specialty Start Date End Date Bee Vail MD PCP - General Internal Medicine 05/07/16 Irene Han, CHEMICAL LAB SUPERVISOR.FORM RAISER [address] [place] [address] Palliative Medicine Provider Hospice & Palliative Medicine 06/28/21 Kylie Mosher, RN Specialty Cosmetologist Apprentice Hospice & Palliative Medicine 09/27/21 Ruperto Ledezma MD [address] [place] [address] [place] [address] Physician Hematology 02/08/23 Ellyn Keller, CHEMICAL LAB SUPERVISOR.FORM RAISER [address] [place] [address] [place] [address] Referring Nurse Practitioner 02/26/23 Ellyn Keller, CHEMICAL LAB SUPERVISOR.FORM RAISER [address] [facility] [address] Referring Nurse Practitioner 03/06/23 Fabiana Johnson LSW Compliance Review Specialist 03/08/23 Script Girl Relationship Specialty Start Date End Date Bee Vail MD PCP - General Internal Medicine 05/07/16 Irene Han, CHEMICAL LAB SUPERVISOR.FORM RAISER [address] [place] [address] Palliative Medicine Provider Hospice & Palliative Medicine 06/28/21 Kylie Mosher, RN Specialty Cosmetologist Apprentice Hospice & Palliative Medicine 09/27/21 Ruperto Ledezma MD [address] [place] [address] [place] [address] Physician Hematology 02/08/23 Ellyn Keller, CHEMICAL LAB SUPERVISOR.FORM RAISER [address] [facility] [place] [address] Referring Nurse Practitioner 02/26/23 Ellyn Keller, CHEMICAL LAB SUPERVISOR.FORM RAISER [address] [facility] [place] [address] Referring Nurse Practitioner 03/06/23 Fabiana Johnson LSW Compliance Review Specialist 03/08/23 Script Girl Relationship Specialty [place] [address] [place] [address] PCP - General Internal Medicine 05/07/16 [place] [address] [place] [address] Consulting Hematology/Oncology 01/28/12 02/07/23 [place] [address] [place] [address] Hematology/Oncology 03/30/21 02/07/23 Irene Han, CHEMICAL LAB SUPERVISOR.FORM RAISER [address] [place] [address] Palliative Medicine Provider Hospice & Palliative Medicine 06/28/21 Kylie Mosher, RN Specialty Cosmetologist Apprentice Hospice & Palliative Medicine 09/27/21 Script Girl Relationship Specialty [place] [address] [place] [address] PCP - General Internal Medicine 05/07/16 [place] [address] [place] [address] Consulting Hematology/Oncology 01/28/12 02/07/23 [place] [address] [place] [address] Hematology/Oncology 03/30/21 02/07/23 Irene Han, CHEMICAL LAB SUPERVISOR.FORM RAISER [address] [place] [address] Palliative Medicine Provider Hospice & Palliative Medicine 06/28/21 Kylie Mosher RN Specialty Cosmetologist Apprentice Hospice & Palliative Medicine 09/27/21 Script Girl Relationship Specialty Start Date End Date Bee Vail MD PCP - General Internal Medicine 05/07/16 Irene Han, CHEMICAL LAB SUPERVISOR.FORM RAISER [address] [place] [address] Palliative Medicine Provider Hospice & Palliative Medicine 06/28/21 Kylie Mosher, RN Specialty Cosmetologist Apprentice Hospice & Palliative Medicine 09/27/21 Ruperto Ledezma MD [address] [place] [address] [place] [address] Physician Hematology 02/08/23 Ellyn Keller, CHEMICAL LAB SUPERVISOR.FORM RAISER [address] [place] [address] [place] [address] Referring Nurse Practitioner 02/26/23 Ellyn Keller, CHEMICAL LAB SUPERVISOR.FORM RAISER [address] [place] [address] [place] [address] Referring Nurse Practitioner 03/06/23 Fabiana Johnson LSW Compliance Review Specialist 03/08/23 Script Girl Relationship Specialty Start Date End Date Bee Vail MD PCP - General Internal Medicine 05/07/16 Irene Han, CHEMICAL LAB SUPERVISOR.FORM RAISER [address] [place] [address] Palliative Medicine Provider Hospice & Palliative Medicine 06/28/21 Kylie Mosher, RN Specialty Cosmetologist Apprentice Hospice & Palliative Medicine 09/27/21 Ruperto Ledezma MD [address] [place] [address] [place] [address] Physician Hematology 02/08/23 Ellyn Keller, CHEMICAL LAB SUPERVISOR.FORM RAISER [address] [place] [address] [place] [address] Referring Nurse Practitioner 02/26/23 Ellyn Keller, CHEMICAL LAB SUPERVISOR.FORM RAISER [address] [facility] [place] [address] Referring Nurse Practitioner 03/06/23 Fabiana Johnson LSW Compliance Review Specialist 03/08/23 Script Girl Relationship Specialty [place] [address] [place] [address] PCP - General Internal Medicine 05/07/16 [place] [address] [place] [address] Consulting Hematology/Oncology 01/28/12 02/07/23 [place] [address] [place] [address] Specialty Cosmetologist Apprentice Hematology/Oncology 11/09/19 05/17/22 [place] [address] [place] [address] Hematology/Oncology 03/30/21 02/07/23 Kristina Pete, RN Specialty Cosmetologist Apprentice Hospice & Palliative Medicine 05/22/21 08/06/22 Irene Han, CHEMICAL LAB SUPERVISOR.FORM RAISER [address] [place] [address] Palliative Medicine Provider Hospice & Palliative Medicine 06/28/21 Kylie Mosher, RN Specialty Cosmetologist Apprentice Hospice & Palliative Medicine 09/27/21 Script Girl Relationship Specialty Start Date End Date Bee Vail MD PCP - General Internal Medicine 05/07/16 Irene Han, CHEMICAL LAB SUPERVISOR.FORM RAISER [address] [place] [address] Palliative Medicine Provider Hospice & Palliative Medicine 06/28/21 Kylie Mosher, RN Specialty Cosmetologist Apprentice Hospice & Palliative Medicine 09/27/21 Ruperto Ledezma MD [address] [place] [address] [place] [address] Physician Hematology 02/08/23 Ellyn Keller, CHEMICAL LAB SUPERVISOR.FORM RAISER [address] [facility] [place] [address] Referring Nurse Practitioner 02/26/23 Ellyn Keller, CHEMICAL LAB SUPERVISOR.FORM RAISER [address] [facility] [place] [address] Referring Nurse Practitioner 03/06/23 Fabiana Johnson LSW Compliance Review Specialist 03/08/23 Script Girl Relationship Specialty [place] [address] [place] [address] PCP - General Internal Medicine 05/07/16 [place] [address] [place] [address] Consulting Hematology/Oncology 01/28/12 02/07/23 [place] [address] [place] [address] Specialty Cosmetologist Apprentice Hematology/Oncology 11/09/19 05/17/22 [place] [address] [place] [address] Hematology/Oncology 03/30/21 02/07/23 Yanesh, Kristina M, RN Specialty Cosmetologist Apprentice Hospice & Palliative Medicine 05/22/21 08/06/22 Irene Han, CHEMICAL LAB SUPERVISOR.FORM RAISER [address] [place] [id number] Palliative Medicine Provider Hospice & Palliative Medicine 06/28/21 Kylie Mosher, RN Specialty Cosmetologist Apprentice Hospice & Palliative Medicine 09/27/21 Script Girl Relationship Specialty Start Date End Date Bee Vail MD PCP - General Internal Medicine 05/07/16 Irene Han, CHEMICAL LAB SUPERVISOR.FORM RAISER [address] [place] [id number] Palliative Medicine Provider Hospice & Palliative Medicine 06/28/21 Kylie Mosher RN Specialty Cosmetologist Apprentice Hospice & Palliative Medicine 09/27/21 Ruperto Ledezma MD [address] [place] [address] [place] [address] Physician Hematology 02/08/23 Ellyn Keller, CHEMICAL LAB SUPERVISOR.FORM RAISER [address] [facility] [place] [address] Referring Nurse Practitioner 02/26/23 Ellyn Keller, CHEMICAL LAB SUPERVISOR.FORM RAISER [address] [facility] [place] [address] Referring Nurse Practitioner 03/06/23 Fabiana Johnson LSW Compliance Review Specialist 03/08/23 Script Girl Relationship Specialty [place] [address] [place] [address] PCP - General Internal Medicine 05/07/16 [place] [address] [place] [address] Consulting Hematology/Oncology 01/28/12 02/07/23 Marilyn Hughes, MAE [address] [facility] [place] [address] Specialty Cosmetologist Apprentice Hematology/Oncology 11/09/19 05/17/22 [place] [address] [place] [address] Hematology/Oncology 03/30/21 02/07/23 Kristina Pete RN Specialty Cosmetologist Apprentice Hospice & Palliative Medicine 05/22/21 08/06/22 Irene Han, LORY.[facility] [address] [place] [address] Palliative Medicine Provider Hospice & Palliative Medicine 06/28/21 Script Girl Relationship Specialty [place] [address] [place] [address] PCP - General Internal Medicine 05/07/16 Cyn [place] [id number] [place] [address] Consulting Hematology/Oncology 01/28/12 02/07/23 [place] [address] [facility] [place] [place] [address] Specialty Cosmetologist Apprentice Hematology/Oncology 11/09/19 05/17/22 Script Girl Relationship Specialty Start Date End Date Bee Vail MD [address] [place] [address] PCP - General Internal Medicine 06/26/22 Bee Vail MD [address] [place] [address] PCP - [employer] 10/19/21 Dr. Ledezma Referring Physician Oncology 08/08/23 Dr. Elliott Referring Physician Cardiology 08/08/23 Dr. Clemons Referring Physician Rheumatology 08/08/23 Dr. Carver Referring Physician Pulmonary Disease 08/08/23 Dr. Franco Referring Physician Otolaryngology 08/08/23 Emely Bonilla Referring Physician Palliative Medicine 08/08/23 Script Girl Relationship Specialty Start Date End Date Bee Vail MD PCP - General Internal Medicine 05/07/16 Irene Han, CHEMICAL LAB SUPERVISOR.FORM RAISER [address] [place] [address] Palliative Medicine Provider Hospice & Palliative Medicine 06/28/21 Kylie Mosher RN Specialty Cosmetologist Apprentice Hospice & Palliative Medicine 09/27/21 Ruperto Ledezma MD [address] [place] [address] [place] [address] Physician Hematology 02/08/23 Ellyn Keller, CHEMICAL LAB SUPERVISOR.FORM RAISER [address] [facility] [place] [address] Referring Nurse Practitioner 02/26/23 Ellyn Keller, CHEMICAL LAB SUPERVISOR.FORM RAISER [address] [facility] [place] [address] Referring Nurse Practitioner 03/06/23 Fabiana Johnson LSW Compliance Review Specialist 03/08/23 Script Girl Relationship Specialty Start Date End Date Bee Vail MD PCP - General Internal Medicine 05/07/16 Irene Han, CHEMICAL LAB SUPERVISOR.FORM RAISER [address] [place] [address] Palliative Medicine Provider Hospice & Palliative Medicine 06/28/21 Kylie Mosher, RN Specialty Cosmetologist Apprentice Hospice & Palliative Medicine 09/27/21 Ruperto Ledezma MD [address] [place] [address] [place] [address] Physician Hematology 02/08/23 Ellyn Keller, CHEMICAL LAB SUPERVISOR.FORM RAISER [address] [facility] [place] [address] Referring Nurse Practitioner 02/26/23 Ellyn Keller, CHEMICAL LAB SUPERVISOR.FORM RAISER [address] [facility] [place] [address] Referring Nurse Practitioner 03/06/23 Fabiana Johnson LSW Compliance Review Specialist 03/08/23 Script Girl Relationship Specialty Start Date End Date Bee Vail MD [address] [facility] [place] [address] PCP - General Internal Medicine 06/26/22 Bee Vail MD [address] [facility] [place] [address] PCP - [employer] 10/19/21 Dr. Ledezma Referring Physician Oncology 08/08/23 Dr. Elliott Referring Physician Cardiology 08/08/23 Dr. Clemons Referring Physician Rheumatology 08/08/23 Dr. Carver Referring Physician Pulmonary Disease 08/08/23 Dr. Franco Referring Physician Otolaryngology 08/08/23 Emely Bonilla Referring Physician Palliative Medicine 08/08/23 Script Girl Relationship Specialty Start Date End Date Bee Vail MD PCP - General Internal Medicine 05/07/16 Irene Han, CHEMICAL LAB SUPERVISOR.FORM RAISER [address] [place] [address] Palliative Medicine Provider Hospice & Palliative Medicine 06/28/21 Kylie Mosher, RN Specialty Cosmetologist Apprentice Hospice & Palliative Medicine 09/27/21 Ruperto Ledezma MD [address] [place] [address] [place] [address] Physician Hematology 02/08/23 Ellyn Keller, CHEMICAL LAB SUPERVISOR.FORM RAISER [address] [facility] [place] [address] Referring Nurse Practitioner 02/26/23 Ellyn Keller, CHEMICAL LAB SUPERVISOR.FORM RAISER [address] [facility] [place] [address] Referring Nurse Practitioner 03/06/23 Fabiana Johnson LSW Compliance Review Specialist 03/08/23 Script Girl Relationship Specialty Start Date End Date Bee Vail MD [address] [facility] [place] [address] PCP - General Internal Medicine 06/26/22 Bee Vail MD [address] [facility] [place] [address] PCP - [employer] 10/19/21 Dr. Ledezma Referring Physician Oncology 08/08/23 Dr. Elliott Referring Physician Cardiology 08/08/23 Dr. Clemons Referring Physician Rheumatology 08/08/23 Dr. Carver Referring Physician Pulmonary Disease 08/08/23 Dr. Franco Referring Physician Otolaryngology 08/08/23 Emely Bonilla Referring Physician Palliative Medicine 08/08/23 Script Girl Relationship Specialty Start Date End Date Bee Vail MD PCP - General Internal Medicine 05/07/16 Irene Han, CHEMICAL LAB SUPERVISOR.FORM RAISER [address] [place] [address] Palliative Medicine Provider Hospice & Palliative Medicine 06/28/21 Kylie Mosher, RN Specialty Cosmetologist Apprentice Hospice & Palliative Medicine 09/27/21 Ruperto Ledezma MD [address] [place] [address] [place] [address] Physician Hematology 02/08/23 Ellyn Keller, CHEMICAL LAB SUPERVISOR.FORM RAISER [address] [facility] [place] [address] Referring Nurse Practitioner 02/26/23 Ellyn Keller, CHEMICAL LAB SUPERVISOR.FORM RAISER [address] [place] [address] [place] [address] Referring Nurse Practitioner 03/06/23 Fabiana Johnson LSW Compliance Review Specialist 03/08/23 Script Girl Relationship Specialty Start Date End Date Bee Vail MD PCP - General Internal Medicine 05/07/16 Irene Han, CHEMICAL LAB SUPERVISOR.FORM RAISER [address] [place] [address] Palliative Medicine Provider Hospice & Palliative Medicine 06/28/21 Kylie Mosher, RN Specialty Cosmetologist Apprentice Hospice & Palliative Medicine 09/27/21 Ruperto Ledezma MD [address] [facility] [place] [address] Physician Hematology 02/08/23 Ellyn Keller, CHEMICAL LAB SUPERVISOR.FORM RAISER [address] [facility] [place] [address] Referring Nurse Practitioner 02/26/23 Ellyn Keller, CHEMICAL LAB SUPERVISOR.FORM RAISER [address] [place] [address] [place] [address] Referring Nurse Practitioner 03/06/23 Fabiana Johnson LSW Compliance Review Specialist 03/08/23 Script Girl Relationship Specialty Start Date End Date Bee Vail MD [address] [place] [address] [place] [address] PCP - General Internal Medicine 06/26/22 Bee Vail MD [address] [place] [address] [place] [address] PCP - [employer] 10/19/21 Dr. Ledezma Referring Physician Oncology 08/08/23 Dr. Elliott Referring Physician Cardiology 08/08/23 Dr. Clemons Referring Physician Rheumatology 08/08/23 Dr. Carver Referring Physician Pulmonary Disease 08/08/23 Dr. Franco Referring Physician Otolaryngology 08/08/23 Emely Bonilla Referring Physician Palliative Medicine 08/08/23 Script Girl Relationship Specialty Start Date End Date Bee Vail MD [address] [facility] [place] [address] PCP - General Internal Medicine 06/26/22 Bee Vail MD [address] [facility] [place] [address] PCP - [employer]et[employer] 10/19/21 Dr. Ledezma Referring Physician Oncology 08/08/23 Dr. Elliott Referring Physician Cardiology 08/08/23 Dr. Clemons Referring Physician Rheumatology 08/08/23 Dr. Carver Referring Physician Pulmonary Disease 08/08/23 Dr. Franco Referring Physician Otolaryngology 08/08/23 Emely Bonilla Referring Physician Palliative Medicine 08/08/23 Script Girl Relationship Specialty Start Date End Date Bee Vail MD [address] [facility] [place] [address] PCP - General Internal Medicine 06/26/22 Bee Vail MD [address] [facility] [place] [address] PCP - Aet[employer] 10/19/21 Dr. Ledezma Referring Physician Oncology 08/08/23 Dr. Elliott Referring Physician Cardiology 08/08/23 Dr. Clemons Referring Physician Rheumatology 08/08/23 Dr. Carver Referring Physician Pulmonary Disease 08/08/23 Dr. Franco Referring Physician Otolaryngology 08/08/23 Emely Bonilla Referring Physician Palliative Medicine 08/08/23 Script Girl Relationship Specialty Start Date End Date Bee Vail MD PCP - General Internal Medicine 05/07/16 Irene Han, CHEMICAL LAB SUPERVISOR.FORM RAISER [address] [place] [address] Palliative Medicine Provider Hospice & Palliative Medicine 06/28/21 Kylie Mosher, RN Specialty Cosmetologist Apprentice Hospice & Palliative Medicine 09/27/21 Ruperto Ledezma MD [address] [place] [address] [place] [address] Physician Hematology 02/08/23 Ellyn Keller, CHEMICAL LAB SUPERVISOR.FORM RAISER [address] [place] [address] [place] [address] Referring Nurse Practitioner 02/26/23 Ellyn Keller, CHEMICAL LAB SUPERVISOR.FORM RAISER [address] [place] [address] [place] [address] Referring Nurse Practitioner 03/06/23 Fabiana Johnson LSW Compliance Review Specialist 03/08/23 Script Girl Relationship Specialty Start Date End Date Bee Vail MD [address] [facility] [place] [address] PCP - General Internal Medicine 06/26/22 Bee Vail MD [address] [facility] [place] [address] PCP - Aet[employer] 10/19/21 Dr. Ledezma Referring Physician Oncology 08/08/23 Dr. Elliott Referring Physician Cardiology 08/08/23 Dr. Clemons Referring Physician Rheumatology 08/08/23 Dr. Carver Referring Physician Pulmonary Disease 08/08/23 Dr. Franco Referring Physician Otolaryngology 08/08/23 Emely Bonilla Referring Physician Palliative Medicine 08/08/23 Script Girl Relationship Specialty Start Date End Date Bee Vail MD [address] [facility] [place] [address] PCP - General Internal Medicine 06/26/22 Bee Vail MD [address] [facility] [place] [address] PCP - Aet[employer] 10/19/21 Dr. Ledezma Referring Physician Oncology 08/08/23 Dr. Elliott Referring Physician Cardiology 08/08/23 Dr. Clemons Referring Physician Rheumatology 08/08/23 Dr. Carver Referring Physician Pulmonary Disease 08/08/23 Dr. Franco Referring Physician Otolaryngology 08/08/23 Emely Bonilla Referring Physician Palliative Medicine 08/08/23 Script Girl Relationship Specialty Start Date End Date Bee Vail MD PCP - General Internal Medicine 05/07/16 Irene Han, CHEMICAL LAB SUPERVISOR.FORM RAISER [address] [place] [address] Palliative Medicine Provider Hospice & Palliative Medicine 06/28/21 Kylie Mosher, RN Specialty Cosmetologist Apprentice Hospice & Palliative Medicine 09/27/21 Ruperto Ledezma MD [address] [place] [address] [place] [address] Physician Hematology 02/08/23 Ellyn Keller, CHEMICAL LAB SUPERVISOR.FORM RAISER [address] [facility] [place] [address] Referring Nurse Practitioner 02/26/23 Ellyn Keller, CHEMICAL LAB SUPERVISOR.FORM RAISER [address] [facility] [place] [address] Referring Nurse Practitioner 03/06/23 Fabiana Johnson LSW Compliance Review Specialist 03/08/23 Sheila Lin, CHEMICAL LAB SUPERVISOR.FORM RAISER [address] [facility] [place] [address] Referring Internal Medicine 12/03/23 Script Girl Relationship Specialty Start Date End Date Bee Vail MD PCP - General Internal Medicine 05/07/16 Irene Han, CHEMICAL LAB SUPERVISOR.FORM RAISER [address] [place] [address] Palliative Medicine Provider Hospice & Palliative Medicine 06/28/21 Kylie Mosher, RN Specialty Cosmetologist Apprentice Hospice & Palliative Medicine 09/27/21 Ruperto Ledezma MD [address] [facility] [place] [address] Physician Hematology 02/08/23 Ellyn Keller, CHEMICAL LAB SUPERVISOR.FORM RAISER [address] [facility] [place] [address] Referring Nurse Practitioner 02/26/23 Ellyn Keller, CHEMICAL LAB SUPERVISOR.FORM RAISER [address] [facility] [place] [address] Referring Nurse Practitioner 03/06/23 Fabiana Johnson LSW Compliance Review Specialist 03/08/23 Sheila Lin, CHEMICAL LAB SUPERVISOR.FORM RAISER [address] [facility] [place] [address] Referring Internal Medicine 12/03/23 Script Girl Relationship Specialty Start Date End Date Bee Vail MD PCP - General Internal Medicine 05/07/16 Irene Han, CHEMICAL LAB SUPERVISOR.FORM RAISER [address] [place] [address] Palliative Medicine Provider Hospice & Palliative Medicine 06/28/21 Kylie Mosher, RN Specialty Cosmetologist Apprentice Hospice & Palliative Medicine 09/27/21 Ruperto Ledezma MD [address] [place] [address] [place] [address] Physician Hematology 02/08/23 Ellyn Keller, CHEMICAL LAB SUPERVISOR.FORM RAISER [address] [facility] [place] [address] Referring Nurse Practitioner 02/26/23 Ellyn Keller, CHEMICAL LAB SUPERVISOR.FORM RAISER [address] [facility] [place] [address] Referring Nurse Practitioner 03/06/23 Fabiana Johnson LSW Compliance Review Specialist 03/08/23 Sheila Lin, CHEMICAL LAB SUPERVISOR.FORM RAISER [address] [facility] [place] [address] Referring Internal Medicine 12/03/23 Script Girl Relationship Specialty Start Date End Date Bee Vail MD PCP - General Internal Medicine 05/07/16 Irene Han, CHEMICAL LAB SUPERVISOR.FORM RAISER [address] [place] [address] Palliative Medicine Provider Hospice & Palliative Medicine 06/28/21 Kylie Mosher, RN Specialty Cosmetologist Apprentice Hospice & Palliative Medicine 09/27/21 Ruperto Ledezma MD [address] [place] [address] [place] [address] Physician Hematology 02/08/23 Ellyn Keller, CHEMICAL LAB SUPERVISOR.FORM RAISER [address] [place] [address] [place] [address] Referring Nurse Practitioner 02/26/23 Ellyn Keller, CHEMICAL LAB SUPERVISOR.FORM RAISER [address] [facility] [place] [address] Referring Nurse Practitioner 03/06/23 Fabiana Johnson LSW Compliance Review Specialist 03/08/23 Sheila Lin, CHEMICAL LAB SUPERVISOR.FORM RAISER [address] [place] [address] [place] [address] Referring Internal Medicine 12/03/23 Script Girl Relationship Specialty Start Date End Date Bee Vail MD PCP - General Internal Medicine 05/07/16 Irene Han, CHEMICAL LAB SUPERVISOR.FORM RAISER [address] [place] [address] Palliative Medicine Provider Hospice & Palliative Medicine 06/28/21 Kylie Mosher, RN Specialty Cosmetologist Apprentice Hospice & Palliative Medicine 09/27/21 Ruperto Ledezma MD [address] [place] [address] [place] [address] Physician Hematology 02/08/23 Ellyn Keller, CHEMICAL LAB SUPERVISOR.FORM RAISER [address] [facility] [place] [address] Referring Nurse Practitioner 02/26/23 Ellyn Keller, CHEMICAL LAB SUPERVISOR.FORM RAISER [address] [facility] [place] [address] Referring Nurse Practitioner 03/06/23 Fabiana Johnson LSW Compliance Review Specialist 03/08/23 Sheila Lin, CHEMICAL LAB SUPERVISOR.FORM RAISER [address] [facility] [place] [address] Referring Internal Medicine 12/03/23 Script Girl Relationship Specialty Start Date End Date Bee Vail MD PCP - General Internal Medicine 05/07/16 Irene Han, CHEMICAL LAB SUPERVISOR.FORM RAISER [address] [place] [address] Palliative Medicine Provider Hospice & Palliative Medicine 06/28/21 Kylie Mosher, RN Specialty Cosmetologist Apprentice Hospice & Palliative Medicine 09/27/21 Ruperto Ledezma MD [address] [facility] [place] [address] Physician Hematology 02/08/23 Ellyn Keller, CHEMICAL LAB SUPERVISOR.FORM RAISER [address] [facility] [place] [address] Referring Nurse Practitioner 02/26/23 Ellyn Keller, CHEMICAL LAB SUPERVISOR.FORM RAISER [address] [facility] [place] [address] Referring Nurse Practitioner 03/06/23 Fabiana Johnson LSW Compliance Review Specialist 03/08/23 Sheila Lin, CHEMICAL LAB SUPERVISOR.FORM RAISER [address] [facility] [place] [address] Referring Internal Medicine 12/03/23 Script Girl Relationship Specialty Start Date End Date Bee Vail MD [address] [place] [address] [place] [address] PCP - General Internal Medicine 06/26/22 Bee Vail MD [address] [place] [address] [place] [address] PCP - [employer] 10/19/21 Dr. Ledezma Referring Physician Oncology 08/08/23 Dr. Elliott Referring Physician Cardiology 08/08/23 Dr. Clemons Referring Physician Rheumatology 08/08/23 Dr. Carver Referring Physician Pulmonary Disease 08/08/23 Dr. Franco Referring Physician Otolaryngology 08/08/23 Emely Bonilla Referring Physician Palliative Medicine 08/08/23 Script Girl Relationship Specialty Start Date End Date Bee Vail MD PCP - General Internal Medicine 05/07/16 Irene Han, CHEMICAL LAB SUPERVISOR.FORM RAISER [address] [place] [address] Palliative Medicine Provider Hospice & Palliative Medicine 06/28/21 Kylie Mosher, RN Specialty Cosmetologist Apprentice Hospice & Palliative Medicine 09/27/21 Ruperto Ledezma MD [address] [place] [address] [place] [address] Physician Hematology 02/08/23 Ellyn Keller, CHEMICAL LAB SUPERVISOR.FORM RAISER [address] [facility] [address] Referring Nurse Practitioner 02/26/23 Ellyn Keller, CHEMICAL LAB SUPERVISOR.FORM RAISER [address] [facility] [place] [address] Referring Nurse Practitioner 03/06/23 Fabiana oJhnson LSW Compliance Review Specialist 03/08/23 Sheila Lin, CHEMICAL LAB SUPERVISOR.FORM RAISER [address] [place] [address] [place] [address] Referring Internal Medicine 12/03/23 Script Girl Relationship Specialty Start Date End Date Bee Vail MD PCP - General Internal Medicine 05/07/16 Irene Han, CHEMICAL LAB SUPERVISOR.FORM RAISER [address] [place] [address] Palliative Medicine Provider Hospice & Palliative Medicine 06/28/21 Kylie Mosher, RN Specialty Cosmetologist Apprentice Hospice & Palliative Medicine 09/27/21 Ruperto Ledezma MD [address] [place] [address] [place] [address] Physician Hematology 02/08/23 Ellyn Keller, CHEMICAL LAB SUPERVISOR.FORM RAISER [address] [facility] [place] [address] Referring Nurse Practitioner 02/26/23 Ellyn Keller, CHEMICAL LAB SUPERVISOR.FORM RAISER [address] [place] [address] [place] [address] Referring Nurse Practitioner 03/06/23 Fabiana Johnson, TRAVEL ACCOMMODATIONS RATER Compliance Review Specialist 03/08/23 Sheila Lin, CHEMICAL LAB SUPERVISOR.FORM RAISER [address] [place] [address] [place] [address] Referring Internal Medicine 12/03/23 Script Girl Relationship Specialty Start Date End Date Bee Vail MD PCP - General Internal Medicine 05/07/16 Irene Han, CHEMICAL LAB SUPERVISOR.FORM RAISER [address] [place] [address] Palliative Medicine Provider Hospice & Palliative Medicine 06/28/21 Kylie Mosher, RN Specialty Cosmetologist Apprentice Hospice & Palliative Medicine 09/27/21 Ruperto Ledezma MD [address] [place] [address] [place] [address] Physician Hematology 02/08/23 Ellyn Keller, CHEMICAL LAB SUPERVISOR.FORM RAISER [address] [place] [address] [place] [address] Referring Nurse Practitioner 02/26/23 Ellyn Keller, CHEMICAL LAB SUPERVISOR.FORM RAISER [address] [place] [address] [place] [address] Referring Nurse Practitioner 03/06/23 Fabiana Johnson, TRAVEL ACCOMMODATIONS RATER Compliance Review Specialist 03/08/23 Sheila Lin, CHEMICAL LAB SUPERVISOR.FORM RAISER [address] [place] [address] [place] [address] Referring Internal Medicine 12/03/23 Script Girl Relationship Specialty Start Date End Date Bee Vail MD PCP - General Internal Medicine 05/07/16 Irene Han, CHEMICAL LAB SUPERVISOR.FORM RAISER [address] [place] [address] Palliative Medicine Provider Hospice & Palliative Medicine 06/28/21 Kylie Mosher, RN Specialty Cosmetologist Apprentice Hospice & Palliative Medicine 09/27/21 Ruperto Ledezma MD [address] [place] [address] [place] [address] Physician Hematology 02/08/23 Ellyn Keller, CHEMICAL LAB SUPERVISOR.FORM RAISER [address] [facility] [place] [address] Referring Nurse Practitioner 02/26/23 Ellyn Keller, CHEMICAL LAB SUPERVISOR.FORM RAISER [address] [facility] [place] [address] Referring Nurse Practitioner 03/06/23 Fabiana Johnson LSW Compliance Review Specialist 03/08/23 Sheila Lin, CHEMICAL LAB SUPERVISOR.FORM RAISER [address] [place] [address] [place] [address] Referring Internal Medicine 12/03/23 Script Girl Relationship Specialty Start Date End Date Bee Vail MD PCP - General Internal Medicine 05/07/16 Irene Han, CHEMICAL LAB SUPERVISOR.FORM RAISER [address] [place] [address] Palliative Medicine Provider Hospice & Palliative Medicine 06/28/21 Kylie Mosher, RN Specialty Cosmetologist Apprentice Hospice & Palliative Medicine 09/27/21 Ruperto Ledezma MD [address] [place] [address] [place] [address] Physician Hematology 02/08/23 Ellyn Keller, CHEMICAL LAB SUPERVISOR.FORM RAISER [address] [facility] [place] [address] Referring Nurse Practitioner 02/26/23 Ellyn Keller, CHEMICAL LAB SUPERVISOR.FORM RAISER [address] [facility] [place] [address] Referring Nurse Practitioner 03/06/23 Fabiana Johnson LSW Compliance Review Specialist 03/08/23 Sheila Lin, CHEMICAL LAB SUPERVISOR.FORM RAISER [address] [place] [address] [place] [address] Referring Internal Medicine 12/03/23 Script Girl Relationship Specialty Start Date End Date Bee Vail MD PCP - General Internal Medicine 05/07/16 Irene Han, CHEMICAL LAB SUPERVISOR.FORM RAISER [address] [place] [address] Palliative Medicine Provider Hospice & Palliative Medicine 06/28/21 Kylie Mosher, RN Specialty Cosmetologist Apprentice Hospice & Palliative Medicine 09/27/21 Ruperto Ledezma MD [address] [place] [address] [place] [address] Physician Hematology 02/08/23 Ellyn Keller, CHEMICAL LAB SUPERVISOR.FORM RAISER [address] [place] [address] [place] [address] Referring Nurse Practitioner 02/26/23 Ellyn Keller, CHEMICAL LAB SUPERVISOR.FORM RAISER [address] [place] [address] [place] [address] Referring Nurse Practitioner 03/06/23 Fabiana Johnson, TRAVEL ACCOMMODATIONS RATER Compliance Review Specialist 03/08/23 Sheila Lin, CHEMICAL LAB SUPERVISOR.FORM RAISER [address] [place] [address] [place] [address] Referring Internal Medicine 12/03/23 Script Girl Relationship Specialty Start Date End Date Bee Vail MD PCP - General Internal Medicine 05/07/16 Irene Han, CHEMICAL LAB SUPERVISOR.FORM RAISER [address] [place] [address] Palliative Medicine Provider Hospice & Palliative Medicine 06/28/21 Kylie Mosher, RN Specialty Cosmetologist Apprentice Hospice & Palliative Medicine 09/27/21 Ruperto Ledezma MD [address] [place] [address] [place] [address] Physician Hematology 02/08/23 Ellyn Keller, CHEMICAL LAB SUPERVISOR.FORM RAISER [address] [place] [address] [place] [address] Referring Nurse Practitioner 02/26/23 Ellyn Keller, CHEMICAL LAB SUPERVISOR.FORM RAISER [address] [place] [address] [place] [address] Referring Nurse Practitioner 03/06/23 Fabiana Johnson, TRAVEL ACCOMMODATIONS RATER Compliance Review Specialist 03/08/23 Sheila Lin, CHEMICAL LAB SUPERVISOR.FORM RAISER [address] [place] [address] [place] [address] Referring Internal Medicine 12/03/23 Script Girl Relationship Specialty Start Date End Date Bee Vail MD PCP - General Internal Medicine 05/07/16 Irene Han, CHEMICAL LAB SUPERVISOR.FORM RAISER [address] [place] [address] Palliative Medicine Provider Hospice & Palliative Medicine 06/28/21 Kylie Mosher, RN Specialty Cosmetologist Apprentice Hospice & Palliative Medicine 09/27/21 Ruperto Ledezma MD [address] [place] [address] [place] [address] Physician Hematology 02/08/23 Ellyn Keller, CHEMICAL LAB SUPERVISOR.FORM RAISER [address] [facility] [place] [address] Referring Nurse Practitioner 02/26/23 Ellyn Keller, CHEMICAL LAB SUPERVISOR.FORM RAISER [address] [facility] [place] [address] Referring Nurse Practitioner 03/06/23 Fabiana Johnson LSW Compliance Review Specialist 03/08/23 Sheila Lin, CHEMICAL LAB SUPERVISOR.FORM RAISER [address] [facility] [place] [address] Referring Internal Medicine 12/03/23 Script Girl Relationship Specialty Start Date End Date Bee Vail MD PCP - General Internal Medicine 05/07/16 Irene Han, CHEMICAL LAB SUPERVISOR.FORM RAISER [address] [place] [address] Palliative Medicine Provider Hospice & Palliative Medicine 06/28/21 Kylie Mosher, RN Specialty Cosmetologist Apprentice Hospice & Palliative Medicine 09/27/21 Ruperto Ledezma MD [address] [place] [address] [place] [address] Physician Hematology 02/08/23 Ellyn Keller, CHEMICAL LAB SUPERVISOR.FORM RAISER [address] [facility] [place] [address] Referring Nurse Practitioner 02/26/23 Ellyn Keller, CHEMICAL LAB SUPERVISOR.FORM RAISER [address] [facility] [place] [address] Referring Nurse Practitioner 03/06/23 Fabiana Johnson LSW Compliance Review Specialist 03/08/23 Sheila Lin, CHEMICAL LAB SUPERVISOR.FORM RAISER [address] [place] [address] [place] [address] Referring Internal Medicine 12/03/23 Script Girl Relationship Specialty Start Date End Date Bee Vail MD [address] [facility] [place] [address] PCP - General Internal Medicine 06/26/22 Bee Vail MD [address] [facility] [place] [address] PCP - [employer] 10/19/21 Dr. Ledezma Referring Physician Oncology 08/08/23 Dr. Elliott Referring Physician Cardiology 08/08/23 Dr. Clemons Referring Physician Rheumatology 08/08/23 Dr. Carver Referring Physician Pulmonary Disease 08/08/23 Dr. Franco Referring Physician Otolaryngology 08/08/23 Emely Bonilla Referring Physician Palliative Medicine 08/08/23 Script Girl Relationship Specialty Start Date End Date Bee Vail MD PCP - General Internal Medicine 05/07/16 Irene Han, CHEMICAL LAB SUPERVISOR.FORM RAISER [address] [place] [address] Palliative Medicine Provider Hospice & Palliative Medicine 06/28/21 Kylie Mosher, RN Specialty Cosmetologist Apprentice Hospice & Palliative Medicine 09/27/21 Ruperto Ledezma MD [address] [place] [address] [place] [address] Physician Hematology 02/08/23 Ellyn Keller, CHEMICAL LAB SUPERVISOR.FORM RAISER [address] [facility] [place] [address] Referring Nurse Practitioner 02/26/23 Ellyn Keller, CHEMICAL LAB SUPERVISOR.FORM RAISER [address] [facility] [place] [address] Referring Nurse Practitioner 03/06/23 Fabiana Johnson LSW Compliance Review Specialist 03/08/23 Sheila Lin, CHEMICAL LAB SUPERVISOR.FORM RAISER [address] [facility] [place] [address] Referring Internal Medicine 12/03/23 Script Girl Relationship Specialty Start Date End Date Bee Vail MD PCP - General Internal Medicine 05/07/16 Irene Han, CHEMICAL LAB SUPERVISOR.FORM RAISER [address] [place] [address] Palliative Medicine Provider Hospice & Palliative Medicine 06/28/21 Kylie Mosher, RN Specialty Cosmetologist Apprentice Hospice & Palliative Medicine 09/27/21 Ruperto Ledezma MD [address] [place] [address] [place] [address] Physician Hematology 02/08/23 Ellyn Keller, CHEMICAL LAB SUPERVISOR.FORM RAISER [address] [facility] [place] [address] Referring Nurse Practitioner 02/26/23 Ellyn Keller, CHEMICAL LAB SUPERVISOR.FORM RAISER [address] [facility] [place] [address] Referring Nurse Practitioner 03/06/23 Fabiana Johnson LSW Compliance Review Specialist 03/08/23 Sheila iLn, CHEMICAL LAB SUPERVISOR.FORM RAISER [address] [facility] [place] [address] Referring Internal Medicine 12/03/23 Script Girl Relationship Specialty Start Date End Date Bee Vail MD PCP - General Internal Medicine 05/07/16 Irene Han, CHEMICAL LAB SUPERVISOR.FORM RAISER [address] [place] [address] Palliative Medicine Provider Hospice & Palliative Medicine 06/28/21 Kylie Mosher, RN Specialty Cosmetologist Apprentice Hospice & Palliative Medicine 09/27/21 Ruperto Ledezma MD [address] [place] [address] [place] [address] Physician Hematology 02/08/23 Ellyn Keller, CHEMICAL LAB SUPERVISOR.FORM RAISER [address] [facility] [place] [address] Referring Nurse Practitioner 02/26/23 Ellyn Keller, CHEMICAL LAB SUPERVISOR.FORM RAISER [address] [facility] [place] [address] Referring Nurse Practitioner 03/06/23 Fabiana Johnson LSW Compliance Review Specialist 03/08/23 Mynorcésar Sheila Jorge, CHEMICAL LAB SUPERVISOR.FORM RAISER [address] [facility] [place] [address] Referring Internal Medicine 12/03/23 Script Girl Relationship Specialty Start Date End Date Bee Vail MD [address] [place] [address] [place] [address] PCP - General Internal Medicine 06/26/22 Bee Vail MD [address] [place] [address] [place] [address] PCP - [employer] 10/19/21 Dr. Ledezma Referring Physician Oncology 08/08/23 Dr. Elliott Referring Physician Cardiology 08/08/23 Dr. Clemons Referring Physician Rheumatology 08/08/23 Dr. Carver Referring Physician Pulmonary Disease 08/08/23 Dr. Franco Referring Physician Otolaryngology 08/08/23 Emely Bonilla Referring Physician Palliative Medicine 08/08/23 Script Girl Relationship Specialty Start Date End Date Bee Vail MD [address] [place] [address] [place] [address] PCP - General Internal Medicine 06/26/22 Bee Vail MD [address] [facility] [place] [address] PCP - [employer] 10/19/21 Dr. Ledezma Referring Physician Oncology 08/08/23 Dr. Elliott Referring Physician Cardiology 08/08/23 Dr. Clemons Referring Physician Rheumatology 08/08/23 Dr. Carver Referring Physician Pulmonary Disease 08/08/23 Dr. Franco Referring Physician Otolaryngology 08/08/23 Emely Bonilla Referring Physician Palliative Medicine 08/08/23 Script Girl Relationship Specialty Start Date End Date Bee Vail MD [address] [facility] [place] [address] PCP - General Internal Medicine 06/26/22 Bee Vail MD [address] [facility] [place] [address] PCP - [employer] 10/19/21 Dr. Ledezma Referring Physician Oncology 08/08/23 Dr. Elliott Referring Physician Cardiology 08/08/23 Dr. Clemons Referring Physician Rheumatology 08/08/23 Dr. Carver Referring Physician Pulmonary Disease 08/08/23 Dr. Franco Referring Physician Otolaryngology 08/08/23 Emely Bonilla Referring Physician Palliative Medicine 08/08/23 Script Girl Relationship Specialty Start Date End Date Bee Vail MD PCP - General Internal Medicine 05/07/16 Irene Han, CHEMICAL LAB SUPERVISOR.FORM RAISER [address] [place] [address] Palliative Medicine Provider Hospice & Palliative Medicine 06/28/21 Kylie Mosher RN Specialty Cosmetologist Apprentice Hospice & Palliative Medicine 09/27/21 Ruperto Ledezma MD [address] [place] [address] [place] [address] Physician Hematology 02/08/23 Ellyn Keller, CHEMICAL LAB SUPERVISOR.FORM RAISER [address] [place] [address] [place] [address] Referring Nurse Practitioner 02/26/23 Ellyn Keller, CHEMICAL LAB SUPERVISOR.FORM RAISER [address] [facility] [place] [address] Referring Nurse Practitioner 03/06/23 Fabiana Johnson LSW Compliance Review Specialist 03/08/23 Sheila Lin, CHEMICAL LAB SUPERVISOR.FORM RAISER [address] [facility] [place] [address] Referring Internal Medicine 12/03/23 Script Girl Relationship Specialty Start Date End Date Bee Vail MD [address] [facility] [place] [address] PCP - General Internal Medicine 06/26/22 Bee Vail MD [address] [facility] [place] [address] PCP - [employer] 10/19/21 Dr. Ledezma Referring Physician Oncology 08/08/23 Dr. Elliott Referring Physician Cardiology 08/08/23 Dr. Clemons Referring Physician Rheumatology 08/08/23 Dr. Carver Referring Physician Pulmonary Disease 08/08/23 Dr. Franco Referring Physician Otolaryngology 08/08/23 Emely Bonilla Referring Physician Palliative Medicine 08/08/23 Script Girl Relationship Specialty Start Date End Date Bee Vail MD PCP - General Internal Medicine 05/07/16 Irene Han, CHEMICAL LAB SUPERVISOR.FORM RAISER [address] [place] [address], [place] [address] Palliative Medicine Provider Hospice & Palliative Medicine 06/28/21 Kylie Mosher, RN Specialty Cosmetologist Apprentice Hospice & Palliative Medicine 09/27/21 Ruperto Ledezma MD [address] [place] [address] [place] [address] Physician Hematology 02/08/23 Ellyn Keller, CHEMICAL LAB SUPERVISOR.FORM RAISER [address] [facility] [place] [address] Referring Nurse Practitioner 02/26/23 Ellyn Keller, CHEMICAL LAB SUPERVISOR.FORM RAISER [address] [facility] [place] [address] Referring Nurse Practitioner 03/06/23 Fabiana Johnson LSW Compliance Review Specialist 03/08/23 Sheila Lin, CHEMICAL LAB SUPERVISOR.FORM RAISER [address] [facility] [place] [address] Referring Internal Medicine 12/03/23 Script Girl Relationship Specialty Start Date End Date Bee Vail MD PCP - General Internal Medicine 05/07/16 Irene Han, CHEMICAL LAB SUPERVISOR.FORM RAISER [address] [place] [address] Palliative Medicine Provider Hospice & Palliative Medicine 06/28/21 Kylie Mosher, RN Specialty Cosmetologist Apprentice Hospice & Palliative Medicine 09/27/21 Ruperto Ledezma MD [address] [place] [address] [place] [address] Physician Hematology 02/08/23 Ellyn Keller, CHEMICAL LAB SUPERVISOR.FORM RAISER [address] [facility] [place] [address] Referring Nurse Practitioner 02/26/23 Ellyn Keller, CHEMICAL LAB SUPERVISOR.FORM RAISER [address] [facility] [place] [address] Referring Nurse Practitioner 03/06/23 Fabiana Johnson LSW Compliance Review Specialist 03/08/23 Sheila Lin, CHEMICAL LAB SUPERVISOR.FORM RAISER [address] [facility] [place] [address] Referring Internal Medicine 12/03/23 Script Girl Relationship Specialty Start Date End Date Bee Vail MD PCP - General Internal Medicine 05/07/16 Irene Han, CHEMICAL LAB SUPERVISOR.FORM RAISER [address] [place] [address] Palliative Medicine Provider Hospice & Palliative Medicine 06/28/21 Kylie Mosher, RN Specialty Cosmetologist Apprentice Hospice & Palliative Medicine 09/27/21 Ruperto Ledezma MD [address] [place] [address] [place] [address] Physician Hematology 02/08/23 Ellyn Keller, CHEMICAL LAB SUPERVISOR.FORM RAISER [address] [place] [address] [place] [address] Referring Nurse Practitioner 02/26/23 Ellyn Keller, CHEMICAL LAB SUPERVISOR.FORM RAISER [address] [place] [address] [place] [address] Referring Nurse Practitioner 03/06/23 Fabiana Johnson LSW Compliance Review Specialist 03/08/23 Sheila Lin, CHEMICAL LAB SUPERVISOR.FORM RAISER [address] [place] [address] [place] [address] Referring Internal Medicine 12/03/23 Script Girl Relationship Specialty Start Date End Date Bee Vail MD [address] [facility] [place] [address] PCP - General Internal Medicine 06/26/22 Bee Vail MD [address] [facility] [place] [address] PCP - [employer] 10/19/21 Dr. Ledezma Referring Physician Oncology 08/08/23 Dr. Elliott Referring Physician Cardiology 08/08/23 Dr. Clemons Referring Physician Rheumatology 08/08/23 Dr. Carver Referring Physician Pulmonary Disease 08/08/23 Dr. Franco Referring Physician Otolaryngology 08/08/23 Emely Bonilla Referring Physician Palliative Medicine 08/08/23 Script Girl Relationship Specialty Start Date End Date Bee Vail MD PCP - General Internal Medicine 05/07/16 Irene Han, CHEMICAL LAB SUPERVISOR.FORM RAISER [address] [place] [address] Palliative Medicine Provider Hospice & Palliative Medicine 06/28/21 Kylie Mosher, RN Specialty Cosmetologist Apprentice Hospice & Palliative Medicine 09/27/21 Ruperto Ledezma MD [address] [place] [address] [place] [address] Physician Hematology 02/08/23 Ellyn Keller, CHEMICAL LAB SUPERVISOR.FORM RAISER [address] [place] [address] [place] [address] Referring Nurse Practitioner 02/26/23 Ellyn Keller, CHEMICAL LAB SUPERVISOR.FORM RAISER [address] [facility] [place] [address] Referring Nurse Practitioner 03/06/23 Fabiana Johnson LSW Compliance Review Specialist 03/08/23 Sheila Lin, CHEMICAL LAB SUPERVISOR.FORM RAISER [address] [place] [address] [place] [address] Referring Internal Medicine 12/03/23 Script Girl Relationship Specialty Start Date End Date Bee Vial MD PCP - General Internal Medicine 05/07/16 Irene Han, CHEMICAL LAB SUPERVISOR.FORM RAISER [address] [place] [address] Palliative Medicine Provider Hospice & Palliative Medicine 06/28/21 Kylie Mosher, RN Specialty Cosmetologist Apprentice Hospice & Palliative Medicine 09/27/21 Ruperto Ledezma MD [address] [place] [address] [place] [address] Physician Hematology 02/08/23 Ellyn Keller, CHEMICAL LAB SUPERVISOR.FORM RAISER [address] [facility] [place] [address] Referring Nurse Practitioner 02/26/23 Ellyn Keller, CHEMICAL LAB SUPERVISOR.FORM RAISER [address] [facility] [place] [address] Referring Nurse Practitioner 03/06/23 Fabiana Johnson LSW Compliance Review Specialist 03/08/23 Sheila Lin, CHEMICAL LAB SUPERVISOR.FORM RAISER [address] [facility] [place] [address] Referring Internal Medicine 12/03/23 Script Girl Relationship Specialty Start Date End Date Bee Vail MD PCP - General Internal Medicine 05/07/16 Irene Han, CHEMICAL LAB SUPERVISOR.FORM RAISER [address] [place] [address] Palliative Medicine Provider Hospice & Palliative Medicine 06/28/21 Kylie Mosher, RN Specialty Cosmetologist Apprentice Hospice & Palliative Medicine 09/27/21 Ruperto Ledezma MD [address] [place] [address] [place] [address] Physician Hematology 02/08/23 Ellyn Keller, CHEMICAL LAB SUPERVISOR.FORM RAISER [address] [facility] [place] [address] Referring Nurse Practitioner 02/26/23 Ellyn Keller, CHEMICAL LAB SUPERVISOR.FORM RAISER [address] [facility] [place] [address] Referring Nurse Practitioner 03/06/23 Fabiana Johnson LSW Compliance Review Specialist 03/08/23 Sheila Lin, CHEMICAL LAB SUPERVISOR.FORM RAISER [address] [facility] [place] [address] Referring Internal Medicine 12/03/23 Script Girl Relationship Specialty Start Date End Date Bee Vail MD PCP - General Internal Medicine 05/07/16 Irene Han, CHEMICAL LAB SUPERVISOR.FORM RAISER [address] [place] [address] Palliative Medicine Provider Hospice & Palliative Medicine 06/28/21 Kylie Mosher, RN Specialty Cosmetologist Apprentice Hospice & Palliative Medicine 09/27/21 Ruperto Ledezma MD [address] [place] [address] [place] [address] Physician Hematology 02/08/23 Ellyn Keller, CHEMICAL LAB SUPERVISOR.FORM RAISER [address] [facility] [place] [address] Referring Nurse Practitioner 02/26/23 Ellyn Keller, CHEMICAL LAB SUPERVISOR.FORM RAISER [address] [place] [address] [place] [address] Referring Nurse Practitioner 03/06/23 Fabiana Johnson LSW Compliance Review Specialist 03/08/23 Sheila Lin, CHEMICAL LAB SUPERVISOR.FORM RAISER [address] [place] [address] [place] [address] Referring Internal Medicine 12/03/23 Script Girl Relationship Specialty Start Date End Date Bee Vail MD [address] [place] [address] [place] [address] PCP - General Internal Medicine 06/26/22 Bee Vail MD [address] [place] [address] [place] [address] PCP - [employer] 10/19/21 Dr. Ledezma Referring Physician Oncology 08/08/23 Dr. Elliott Referring Physician Cardiology 08/08/23 Dr. Clemons Referring Physician Rheumatology 08/08/23 Dr. Carver Referring Physician Pulmonary Disease 08/08/23 Dr. Franco Referring Physician Otolaryngology 08/08/23 Emely Bonilla Referring Physician Palliative Medicine 08/08/23 Script Girl Relationship Specialty Start Date End Date Bee Vail MD PCP - General Internal Medicine 05/07/16 Irene Han, CHEMICAL LAB SUPERVISOR.FORM RAISER [address] [place] [address] Palliative Medicine Provider Hospice & Palliative Medicine 06/28/21 Kylie Mosher, RN Specialty Cosmetologist Apprentice Hospice & Palliative Medicine 09/27/21 Ruperto Ledezma MD [address] [place] [address] [place] [address] Physician Hematology 02/08/23 Ellyn Keller, CHEMICAL LAB SUPERVISOR.FORM [facility] [address] [facility] [address] Referring Nurse Practitioner 02/26/23 Ellyn Keller, CHEMICAL LAB SUPERVISOR.FORM RAISER [address] [facility] [place] [address] Referring Nurse Practitioner 03/06/23 Fabiana Johnson LSW Compliance Review Specialist 03/08/23 Sheila Lin, CHEMICAL LAB SUPERVISOR.FORM [facility] [address] [facility] [place] [address] Referring Internal Medicine 12/03/23 Script Girl Relationship Specialty Start Date End Date Bee Vail MD PCP - General Internal Medicine 05/07/16 Irene Han, CHEMICAL LAB SUPERVISOR.FORM [facility] [address] [place] [address] Palliative Medicine Provider Hospice & Palliative Medicine 06/28/21 Kylie Mosher, RN Specialty Cosmetologist Apprentice Hospice & Palliative Medicine 09/27/21 Ruperto Ledezma MD [address] [place] [address] [place] [address] Physician Hematology 02/08/23 Ellyn Keller, CHEMICAL LAB SUPERVISOR.FORM RAISER [address] [facility] [place] [address] Referring Nurse Practitioner 02/26/23 Ellyn Keller, CHEMICAL LAB SUPERVISOR.FORM RAISER [address] [place] [address] [place] [address] Referring Nurse Practitioner 03/06/23 Fabiana Johnson LSW Compliance Review Specialist 03/08/23 Sheila Lin, CHEMICAL LAB SUPERVISOR.[facility] [address] [place] [address] [place] [address] Referring Internal Medicine 12/03/23 Script Girl Relationship Specialty Start Date End Date Bee Vail MD [address] [facility] [place] [address] PCP - General Internal Medicine 06/26/22 Bee Vail MD [address] [place] [address] [place] [address] PCP - [employer] 10/19/21 Dr. Ledezma Referring Physician Oncology 08/08/23 Dr. Elliott Referring Physician Cardiology 08/08/23 Dr. Clemons Referring Physician Rheumatology 08/08/23 Dr. Carver Referring Physician Pulmonary Disease 08/08/23 Dr. Franco Referring Physician Otolaryngology 08/08/23 Emely Bonilla Referring Physician Palliative Medicine 08/08/23 Script Girl Relationship Specialty Start Date End Date Bee Vail MD [address] [facility] [place] [address] PCP - General Internal Medicine 06/26/22 Bee Vail MD [address] [facility] [place] [address] PCP - [employer] 10/19/21 Dr. Ledezma Referring Physician Oncology 08/08/23 Dr. Elliott Referring Physician Cardiology 08/08/23 Dr. Clemons Referring Physician Rheumatology 08/08/23 Dr. Carver Referring Physician Pulmonary Disease 08/08/23 Dr. Franco Referring Physician Otolaryngology 08/08/23 Emely Bonilla Referring Physician Palliative Medicine 08/08/23 Script Girl Relationship Specialty Start Date End Date Bee Vail MD [address] [facility] [place] [address] PCP - General Internal Medicine 06/26/22 Bee Vail MD [address] [facility] [place] [address] PCP - [employer] 10/19/21 Dr. Ledezma Referring Physician Oncology 08/08/23 Dr. Elliott Referring Physician Cardiology 08/08/23 Dr. Clemons Referring Physician Rheumatology 08/08/23 Dr. Carver Referring Physician Pulmonary Disease 08/08/23 Dr. Franco Referring Physician Otolaryngology 08/08/23 Emely Bonilla Referring Physician Palliative Medicine 08/08/23 Script Girl Relationship Specialty Start Date End Date Bee Vail MD PCP - General Internal Medicine 05/07/16 Irene Han, CHEMICAL LAB SUPERVISOR.FORM RAISER [address] [place] [address] Palliative Medicine Provider Hospice & Palliative Medicine 06/28/21 Kylie Mosher, RN Specialty Cosmetologist Apprentice Hospice & Palliative Medicine 09/27/21 Ruperto Ledezma MD [address] [place] [address] [place] [address] Physician Hematology 02/08/23 Ellyn Keller, CHEMICAL LAB SUPERVISOR.FORM RAISER [address] [facility] [place] [address] Referring Nurse Practitioner 02/26/23 Ellyn Keller, CHEMICAL LAB SUPERVISOR.FORM RAISER [address] [facility] [place] [address] Referring Nurse Practitioner 03/06/23 Fabiana Johnson LSW Compliance Review Specialist 03/08/23 Sheila Lin APRN.[employer] [facility] [address] [place] [address] [place] [address] Referring Internal Medicine 12/03/23 Script Girl Relationship Specialty Start Date End Date Bee Vail MD [address] [place] [address] [place] [address] PCP - General Internal Medicine 06/26/22 Bee Vail MD [address] [facility] [place] [address] PCP - [employer] 10/19/21 Dr. Ledezma Referring Physician Oncology 08/08/23 Dr. Elliott Referring Physician Cardiology 08/08/23 Dr. Clemons Referring Physician Rheumatology 08/08/23 Dr. Carver Referring Physician Pulmonary Disease 08/08/23 Dr. Franco Referring Physician Otolaryngology 08/08/23 Emely Bonilla Referring Physician Palliative Medicine 08/08/23 Script Girl Relationship Specialty Start Date End Date Bee Vail MD [address] [facility] [place] [address] PCP - General Internal Medicine 06/26/22 Bee Vail MD [address] [facility] [place] [address] PCP - [employer] 10/19/21 Dr. Ledezma Referring Physician Oncology 08/08/23 Dr. Elliott Referring Physician Cardiology 08/08/23 Dr. Clemons Referring Physician Rheumatology 08/08/23 Dr. Carver Referring Physician Pulmonary Disease 08/08/23 Dr. Franco Referring Physician Otolaryngology 08/08/23 Emely Bonilla Referring Physician Palliative Medicine 08/08/23 Script Girl Relationship Specialty Start Date End Date Bee Vail MD [address] [facility] [place] [address] PCP - General Internal Medicine 06/26/22 Bee Vail MD [address] [facility] [place] [address] PCP - [employer] 10/19/21 Dr. Ledezma Referring Physician Oncology 08/08/23 Dr. Elliott Referring Physician Cardiology 08/08/23 Dr. Clemons Referring Physician Rheumatology 08/08/23 Dr. Carver Referring Physician Pulmonary Disease 08/08/23 Dr. Franco Referring Physician Otolaryngology 08/08/23 Emely Bonilla Referring Physician Palliative Medicine 08/08/23 Script Girl Relationship Specialty Start Date End Date Bee Vail MD [address] [facility] [place] [address] PCP - General Internal Medicine 06/26/22 Bee Vail MD [address] [facility] [place] [address] PCP - [employer] 10/19/21 Dr. Ledezma Referring Physician Oncology 08/08/23 Dr. Elliott Referring Physician Cardiology 08/08/23 Dr. Clemons Referring Physician Rheumatology 08/08/23 Dr. Carver Referring Physician Pulmonary Disease 08/08/23 Dr. Franco Referring Physician Otolaryngology 08/08/23 Emely Bonilla Referring Physician Palliative Medicine 08/08/23 Script Girl Relationship Specialty Start Date End Date Bee Vail MD [address] [facility] [place] [address] PCP - General Internal Medicine 06/26/22 Bee Vail MD [address] [facility] [place] [address] PCP - [employer] 10/19/21 Dr. Ledezma Referring Physician Oncology 08/08/23 Dr. Elliott Referring Physician Cardiology 08/08/23 Dr. Clemons Referring Physician Rheumatology 08/08/23 Dr. Carver Referring Physician Pulmonary Disease 08/08/23 Dr. Franco Referring Physician Otolaryngology 08/08/23 Emely Bonilla Referring Physician Palliative Medicine 08/08/23 Script Girl Relationship Specialty Start Date End Date Bee Vail MD [address] [facility] [place] [address] PCP - General Internal Medicine 06/26/22 Bee Vail MD [address] [facility] [place] [address] PCP - [employer] 10/19/21 Dr. Ledezma Referring Physician Oncology 08/08/23 Dr. Elliott Referring Physician Cardiology 08/08/23 Dr. Clemons Referring Physician Rheumatology 08/08/23 Dr. Carver Referring Physician Pulmonary Disease 08/08/23 Dr. Franco Referring Physician Otolaryngology 08/08/23 Emely Bonilla Referring Physician Palliative Medicine 08/08/23 Script Girl Relationship Specialty Start Date End Date Bee Vail MD PCP - General Internal Medicine 05/07/16 Irene Han, CHEMICAL LAB SUPERVISOR.FORM RAISER [address] [place] [address] Palliative Medicine Provider Hospice & Palliative Medicine 06/28/21 Kylie Mosher, RN Specialty Cosmetologist Apprentice Hospice & Palliative Medicine 09/27/21 Ruperto Ledezma MD [address] [place] [address] [place] [address] Physician Hematology 02/08/23 Ellyn Keller, CHEMICAL LAB SUPERVISOR.FORM RAISER [address] [facility] [place] [address] Referring Nurse Practitioner 02/26/23 Ellyn Keller, CHEMICAL LAB SUPERVISOR.FORM RAISER [address] [facility] [place] [address] Referring Nurse Practitioner 03/06/23 Fabiana Johnson TRAVEL ACCOMMODATIONS RATER Compliance Review Specialist 03/08/23 Sheila Lin, CHEMICAL LAB SUPERVISOR.FORM [employer]ER [address] [facility] [place] [address] Referring Internal Medicine 12/03/23 Script Girl Relationship Specialty Start Date End Date Bee Vail MD [address] [place] [address] [place] [address] PCP - General Internal Medicine 06/26/22 Bee Vail MD [address] [place] [address] [place] [address] PCP - [employer] 10/19/21 Dr. Ledezma Referring Physician Oncology 08/08/23 Dr. Elliott Referring Physician Cardiology 08/08/23 Dr. Clemons Referring Physician Rheumatology 08/08/23 Dr. Carver Referring Physician Pulmonary Disease 08/08/23 Dr. Franco Referring Physician Otolaryngology 08/08/23 Emely Bonilla Referring Physician Palliative Medicine 08/08/23 Script Girl Relationship Specialty Start Date End Date Bee Vail MD [address] [facility] [place] [address] PCP - General Internal Medicine 06/26/22 Bee Vail MD [address] [facility] [place] [address] PCP - [employer] 10/19/21 Dr. Ledezma Referring Physician Oncology 08/08/23 Dr. Elliott Referring Physician Cardiology 08/08/23 Dr. Clemons Referring Physician Rheumatology 08/08/23 Dr. Carver Referring Physician Pulmonary Disease 08/08/23 Dr. Franco Referring Physician Otolaryngology 08/08/23 Emely Bonilla Referring Physician Palliative Medicine 08/08/23 Script Girl Relationship Specialty Start Date End Date Bee Vail MD PCP - General Internal Medicine 05/07/16 Irene Han, CHEMICAL LAB SUPERVISOR.FORM RAISER [address] [place] [address] Palliative Medicine Provider Hospice & Palliative Medicine 06/28/21 Kylie Mosher, RN Specialty Cosmetologist Apprentice Hospice & Palliative Medicine 09/27/21 Ellyn Keller, CHEMICAL LAB SUPERVISOR.FORM RAISER [address] [facility] [address] Referring Nurse Practitioner 02/26/23 Ellyn Keller, CHEMICAL LAB SUPERVISOR.FORM RAISER [address] [facility] [place] [address] Referring Nurse Practitioner 03/06/23 Fabiana Johnson LSW Compliance Review Specialist 03/08/23 Sheila Lin, CHEMICAL LAB SUPERVISOR.FORM RAISER [address] [facility] [place] [address] Referring Internal Medicine 12/03/23 Script Girl Relationship Specialty Start Date End Date Bee Vail MD PCP - General Internal Medicine 05/07/16 Irene Han, CHEMICAL LAB SUPERVISOR.FORM RAISER [address] [place] [address] Palliative Medicine Provider Hospice & Palliative Medicine 06/28/21 Kylie Mosher, RN Specialty Cosmetologist Apprentice Hospice & Palliative Medicine 09/27/21 Ellyn Keller, CHEMICAL LAB SUPERVISOR.FORM RAISER [address] [facility] [place] [address] Referring Nurse Practitioner 02/26/23 Ellyn Keller, CHEMICAL LAB SUPERVISOR.FORM RAISER [address] [facility] [place] [address] Referring Nurse Practitioner 03/06/23 Fabiana Johnson LSW Compliance Review Specialist 03/08/23 Sheila Lin, CHEMICAL LAB SUPERVISOR.FORM RAISER [address] [facility] [place] [address] Referring Internal Medicine 12/03/23 Script Girl Relationship Specialty Start Date End Date Bee Vail MD PCP - General Internal Medicine 05/07/16 Irene Han, CHEMICAL LAB SUPERVISOR.FORM RAISER [address] [place] [address] Palliative Medicine Provider Hospice & Palliative Medicine 06/28/21 Kylie Mosher, RN Specialty Cosmetologist Apprentice Hospice & Palliative Medicine 09/27/21 Ellyn Keller, CHEMICAL LAB SUPERVISOR.FORM RAISER [address] [facility] [place] [address] Referring Nurse Practitioner 02/26/23 Ellyn Keller, CHEMICAL LAB SUPERVISOR.FORM RAISER [address] [facility] [place] [address] Referring Nurse Practitioner 03/06/23 Fabiana Johnson, TATO Compliance Review Specialist 03/08/23 Sheila Lin, CHEMICAL LAB SUPERVISOR.FORM RAISER [address] [facility] [place] [address] Referring Internal Medicine 12/03/23 Script Girl Relationship Specialty Start Date End Date Bee Vail MD PCP - General Internal Medicine 05/07/16 Irene Han, CHEMICAL LAB SUPERVISOR.FORM RAISER [address] [place] [address] Palliative Medicine Provider Hospice & Palliative Medicine 06/28/21 Kylie Mosher RN Specialty Cosmetologist Apprentice Hospice & Palliative Medicine 09/27/21 Ellyn Keller, CHEMICAL LAB SUPERVISOR.FORM RAISER [address] [facility] [place] [address] Referring Nurse Practitioner 02/26/23 Ellyn Keller, CHEMICAL LAB SUPERVISOR.FORM RAISER [address] [facility] [place] [address] Referring Nurse Practitioner 03/06/23 Fabiana Johnson LSW Compliance Review Specialist 03/08/23 Sheila Lin, CHEMICAL LAB SUPERVISOR.FORM RAISER [address] [facility] [place] [address] Referring Internal Medicine 12/03/23 Script Girl Relationship Specialty Start Date End Date Bee Vail MD PCP - General Internal Medicine 05/07/16 Irene Han, CHEMICAL LAB SUPERVISOR.FORM RAISER [address] [place] [address] Palliative Medicine Provider Hospice & Palliative Medicine 06/28/21 Kylie Mosher, RN Specialty Cosmetologist Apprentice Hospice & Palliative Medicine 09/27/21 Ellyn Keller, CHEMICAL LAB SUPERVISOR.FORM RAISER [address] [facility] [place] [address] Referring Nurse Practitioner 02/26/23 Ellyn Keller, CHEMICAL LAB SUPERVISOR.FORM RAISER [address] [facility] [place] [address] Referring Nurse Practitioner 03/06/23 Fabiana Johnson LSW Compliance Review Specialist 03/08/23 Sheila Lin CHEMICAL LAB SUPERVISOR.FORM RAISER [address] [facility] [place] [address] Referring Internal Medicine 12/03/23 Script Girl Relationship Specialty Start Date End Date Bee Vail MD PCP - General Internal Medicine 05/07/16 Irene Han, LORY.FORM RAISER [address] [place] [address] Palliative Medicine Provider Hospice & Palliative Medicine 06/28/21 Kylie Mosher, RN Specialty Cosmetologist Apprentice Hospice & Palliative Medicine 09/27/21 Ellyn Keller, CHEMICAL LAB SUPERVISOR.FORM RAISER [address] [facility] [place] [address] Referring Nurse Practitioner 02/26/23 Ellyn Keller, CHEMICAL LAB SUPERVISOR.FORM RAISER [address] [facility] [address] Referring Nurse Practitioner 03/06/23 Fabiana Johnson LSW Compliance Review Specialist 03/08/23 Sheila Lin CHEMICAL LAB SUPERVISOR.FORM RAISER [address] [facility] [place] [address] Referring Internal Medicine 12/03/23 Goals (unrecognized section and content) Goals may [...] BE BASED ON THE PRIMARY CLINICAL RECORDS. [employer] provides no warranty or guarantee of the accuracy or completeness of information in this document.
[2024-11-27 12:39] LABS: Anion Gap 8.9; Blood Urea Nitrogen 13.0 mg/dL (7.0-18.0); Calcium 8.8 mg/dL (8.5-10.1); Carbon Dioxide 31.2 mmol/L (21.0-32.0); Chloride 103 mmol/L (98-107); Estimated GFR (African America >60 (>=60 mL/min/1.73m^2); Estimated GFR (Non-African Ame >60 (>=60 mL/min/1.73m^2); Glucose 107 mg/dL (74-106); Potassium 4.1 mmol/L (3.5-5.1); Sodium 139 mmol/L (136-145)
== END 2024-11-27 09:05 | disposition home or self-care (01) ==
PROVIDERS: PCP Internal Medicine; Visit Provider Internal Medicine Interventional Cardiology
DX: I50.22 Chronic systolic (congestive) heart failure (principal)
CPT/HCPCS: 36415; 80048

== ENCOUNTER 2025-01-05 18:14 | Emergency (ER) | payer MEDICARE, MEDICAID, SELFPAY ==
[2025-01-05 18:16] VITALS: BP 108/71; PULSE 89; TEMP 36.9; O2SAT 93; BMI 29.8
--- NOTE | 2025-01-05 18:33 | CT_ITS ---
The [address] [address] Patient Name: CELSO POTTS MRN: [id number] date: 1980 Sex: F Assigned Patient Location: ER Current Patient Location: Accession/Order Number: [id number] Exam Date: 01/05/2025 19:00 Report Date: 01/05/2025 19:26 At the request of: OSMAR DICKERSON Procedure: CT angio chest CTA Chest with PE protocol TECHNIQUE: Axial imaging with 2-D and 3-D reconstruction. The CT exam was performed using one or more the following dose reduction techniques: Automated exposure control, adjustment of the MA and/or Kv according to patient size, or use of the iterative reconstruction technique. History: Shortness of breath. Nausea. 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 History of lung cancer COMPARISON: 02/29/2024 THYROID: Unremarkable TRACHEA AND BRONCHI: Patent ESOPHAGUS: Unremarkable. HEART: Within normal limits PERICARDIAL EFFUSION: Small amount CORONARY ARTERY CALCIFICATION: Moderate volume MEDIASTINUM: No adenopathy. No pneumoperitoneum. No mediastinal hematoma. PULMONARY SHERWIN: Left perihilar scarring THORACIC AORTA Unremarkable PULMONARY EMBOLUS: None LUNG NODULE None LUNGS: Upper lung groundglass parenchymal densities. PLEURAL EFFUSION: Small low density layering pleural effusions PNEUMOTHORAX: No pneumothorax seen. CHEST WALL: No abnormality AXILLA: Unremarkable BONY STRUCTURES Intact UPPER ABDOMEN: Hepatic steatosis CT/CT angio chest IMPRESSION: No acute pulmonary embolus. Similar patchy groundglass opacities. Edema versus pneumonitis/infection. Left perihilar scarring redemonstrated. Similar small pleural effusions. Impression dictated by: Carmine Pryor M.D. 01/05/2025 7:26 PM Dictation Location: [facility] Electronically authenticated by: [id number] Y Date: 01/05/2025 19:26
--- NOTE | 2025-01-05 18:33 | CT_ITS ---
[address] [address] Patient Name: CELSO POTTS MRN: [id number] date: 1980 Sex: F Assigned Patient Location: ER Current Patient Location: ER Accession/Order Number: [id number] Exam Date: 01/05/2025 19:00 Report Date: 01/05/2025 19:20 At the request of: OSMAR DICKERSON Procedure: CT head/brain wo con Unenhanced head CT TECHNIQUE: Contiguous axial imaging of the head. The CT exam was performed using one or more the following dose reduction techniques: Automated exposure control, adjustment of the MA and/or Kv according to patient size, or use of the iterative reconstruction technique. COMPARISON: 03/31/2023 HISTORY: Shortness of breath. Headache. VENTRICLES: Within normal limits ATROPHY: None BRAIN PARENCHYMA: Adequate alcantara-white matter differentiation identified. HEMORRHAGE: None HERNIATION: No mass effect or herniation INFARCTION: No recent vascular distribution infarction is seen. EXTRA-AXIAL FLUID COLLECTIONS None MIDBRAIN: Unremarkable ISABELLA: Unremarkable MEDULLA: Unremarkable SINUSES: Unremarkable ORBITS: Grossly unremarkable MASTOIDS: Unremarkable BONY STRUCTURES Intact ADDITIONAL FINDINGS: CT/CT head/brain wo con IMPRESSION: No acute findings. Impression dictated by: Carmine Pryor M.D. 01/05/2025 7:20 PM Dictation Location: [place] [address] Electronically authenticated by: [id number] Y Date: 01/05/2025 19:20
--- OUTSIDE RECORDS SUMMARY | 2025-01-05 18:43 | XMS_ITS | CCD ---
Author Organization [facility]iniSy[facility] Care Team Providers Care Certified Orthotist Name Role Phone Mary RODRIGUEZ, Abdo Unavailable Nita RODRIGUEZ, Bee A Primary Care Provider Ellen WALL, Marilyn Unavailable Mary RODRIGUEZ, Abdo Unavailable Juan R WALL, Kristina Unavailable Unavailable Emely ACCOUNT SERVICES ASSOCIATE.Irene VASQUEZ Unavailable Kylie Johnson Unavailable Mary RODRIGUEZ, Abdo Unavailable Nita RODRIGUEZ, Bee A Primary Care Provider Ellen WALL, Marilyn Unavailable Mary RODRIGUEZ, Abdo Unavailable Juan R RN, Kristina Unavailable Unavailable Emely ACCOUNT SERVICES ASSOCIATE.Irene VASQUEZ Unavailable Kylie Mosher RN Unavailable Unavail able Nita RODRIGUEZ, Bee A Primary Care Provider Mary RODRIGUEZ, Abdo Unavailable Nita RODRIGUEZ, Bee A Primary Care Provider Marilyn Hughes RN Unavailable Mary RODRIGUEZ, Abdo Unavailable Juan R RN, Kristina Unavailable Unavailable Emely ACCOUNT SERVICES ASSOCIATE.Irene VASQUEZ Unavailable Nomi WALL, Kylie Patel Unavailable Unavail able FAN, DR PEGUERO Primary Care Unavailable IGLESIA BLAKELY Admitting Unavailable IGLESIA BLAKELY Attending Unavailable IGLESIA BLAKELY Consulting Unavailable CONG ALMANZAR Consulting Unavailable FAN, DR PEGUERO Primary Care Unavailable PAY ., DR PARHAM Admitting Unavailable PAY ., DR PARHAM Attending Unavailable BITA ., ZAIRA Consulting Unavailable Emely ACCOUNT SERVICES ASSOCIATE.TRAINING AND DEVELOPMENT DIRECTOR, Irene Unavailable Juan R WALL, Kristina Unavailable Unavailable Emely ACCOUNT SERVICES ASSOCIATE.TRAINING AND DEVELOPMENT DIRECTOR, Irene Unavailable Nomi WALL, Kylie Patel Unavailable Unavail able IRENE HAN Attending Unavailable VAIL, BEE A Primary Care Unavailable IRENE HAN Attending Unavailable VAIL, BEE A Primary Care Unavailable VAIL, BEE A Primary Care Unavailable IRENE HAN Referring Unavailable Mary RODRIGUEZ, Abdo Unavailable Glenys Vail MDecca A Primary Care Provider Mary RODRIGUEZ, Cyn Unavailable Keke Bright Unavailable MD Bee Vail A Primary Care Provider OSCAR Bright Attending Provider Bee Vail MD A Primary Care Provider Ruperto Ledezma MD Unavailable Munday ACCOUNT SERVICES ASSOCIATE.TRAINING AND DEVELOPMENT DIRECTOR, Ellyn Unavailable Munday ACCOUNT SERVICES ASSOCIATE.TRAINING AND DEVELOPMENT DIRECTOR, Ellyn Unavailable Fabiana Cheatham Unavailable Unavailable Keke Bright Attending Unavailable Keke Bright Admitting Unavailable Vail, Bee A Primary Care Unavailable Bee Vail MD Unavailable Corinna Vail MDca A Primary Care Provider Nita RODRIGUEZ Bee A Primary Care Provider Munday ACCOUNT SERVICES ASSOCIATE.TRAINING AND DEVELOPMENT DIRECTOR, Ellyn Unavailable Munday ACCOUNT SERVICES ASSOCIATE.TRAINING AND DEVELOPMENT DIRECTOR, Ellyn Unavailable Mary RODRIGUEZ, Abdo Unavailable Corinna Vail MDca A Primary Care Provider Mary RODRIGUEZ, Abdo Unavailable Ellen WALL, Marilyn A Unavailable Unavailable Juan R WALL, Kristina M Unavailable Unavailabl e Bee Vail MD A Unavailable Araceli ACCOUNT SERVICES ASSOCIATE.Sheila VASQUEZ Unavailable Krishna ACCOUNT SERVICES ASSOCIATE.Ellyn VASQUEZ Unavailable MEHUL, JANI Referring Unavailable VAIL, BEE A Primary Care Unavailable PELCAROLE CARLISLE Referring Unavailable VAIL, BEE A Primary Care Unavailable ANIL FRANCO (PA) Referring Unavailable VAIL, BEE A Primary Care Unavailable ANIL FRANCO (PA) Referring Unavailable VAIL, BEE A Primary Care Unavailable MEHUL, JANI Referring Unavailable VAIL, BEE A Primary Care Unavailable VAIL, BEE A Primary Care Unavailable PLESCMikayla, CAL Admitting Unavailable CARLOS CASTELLON Attending Unavailable CHINOSHEELA Referring Unavailable VAIL, BEE A Primary Care Unavailable GLENDY RUSS Referring Unavailable VAIL, BEE A Primary Care Unavailable Ruperto Ledezma MD Unavailable SHEILA LIN Attending Unavailable RAMBASEGABRIELLE Roberson Attending Unavailable SHEILA LIN Attending Unavailable VAIL, BEE A Attending Unavailable CRISTINE SHARMA Attending Unavailable CRISTINE SHARMA Attending Unavailable VAIL, BEE A Attending Unavailable VAIL, BEE A Attending Unavailable VAIL, BEE A Referring Unavailable IRENE HAN Attending Unavailable VAIL, BEE A Primary Care Unavailable RUPERTO LEDEZMA Referring Unavailabl e VAIL, BEE A Primary Care Unavailable RUPERTO LEDEZMA Referring Unavailabl e RUPERTO LEDEZMA Attending Unavailabl e VAIL, BEE A Primary Care Unavailable RUPERTO LEDEZMA Referring Unavailabl e VAIL, BEE A Primary Care Unavailable PERLA CHINCHILLA Referring Unavailable VAIL, BEE A Primary Care Unavailable ELLYN LOPEZ Referring Unavailable VAIL, BEE A Primary Care Unavailable VAIL, BEE A Primary Care Unavailable KYLIE MILLER Referring Unavailable VAIL, BEE A Primary Care Unavailable KYLIE MILLER Attending Unavailable IRENE HAN Attending Unavailable VAIL, BEE A Primary Care Unavailable RUPERTO LEDEZMA Referring Unavailabl e RUPERTO LEDEZMA Attending Unavailabl e VAIL, BEE A Primary Care Unavailable MICKKORINA Attending Unavailable PELFREY, CAROLE Referring Unavailable VAIL, BEE A Primary Care Unavailable VAIL, BEE A Primary Care Unavailable VAIL, BEE A Referring Unavailable MEHUL, JANI Attending Unavailable VAIL, BEE A Primary Care Unavailable MICK, KORINA E Referring Unavailable VAIL, BEE A Primary Care Unavailable MILLER, KYLIE Referring Unavailable IRENE HAN Attending Unavailable VAIL, BEE A Primary Care Unavailable VAIL, BEE A Primary Care Unavailable MILLER, KYLIE Referring Unavailable SELF Referring Unavailable VAIL, BEE A Primary Care Unavailable ABHYANKAR, JE Attending Unavailable VAIL, BEE A Primary Care Unavailable MILLER, KYLIE Referring Unavailable VAIL, BEE A Primary Care Unavailable MEHUL, JANI Referring Unavailable ABHYANKAR, JE Referring Unavailable VAIL, BEE A Primary Care Unavailable VAIL, BEE A Primary Care Unavailable ABHYANKAR, JE Referring Unavailable CHINCHILLA, PERLA Referring Unavailable VAIL, BEE A Primary Care Unavailable SELF Referring Unavailable VAIL, BEE A Primary Care Unavailable CHINCHILLA, PERLA Attending Unavailable ABHYANKAR, JE Referring Unavailable VAIL, BEE A Primary Care Unavailable RUPERTO LEDEZMA Referring Unavailabl e VAIL, BEE A Primary Care Unavailable GLENDY RUSS Attending Unavailable MEHUL, JANI Referring Unavailable VAIL, BEE A Primary Care Unavailable VAIL, BEE A Primary Care Unavailable VAIL, BEE A Primary Care Unavailable IRENE HAN Attending Unavailable VALDEZ, LIZ Referring Unavailable ASHLEY ANIL Referring Unavailable SHERLY DANG Referring Unavailable ASHLEYANIL [place] Referring Unavailable ANGELINA, JEFF Referring Unavailable ANGELINA, JEFF Referring Unavailable USAMA, MIKE Referring Unavailable VALDEZ, LIZ Referring Unavailable ANGELINA, JEFF Referring Unavailable SUSANNE HATFIELD Attending Unavailable TEMO HDZ Attending Unavailable TEMO HDZ Attending Unavailable IGLESIA BLAKELY Referring Unavailable JHONNY SALDIVAR Admitting Unavailable TONY FLANAGAN Attending Unavailable JORGE KAUR Attending Unavailable Allergies Allergy ClassificationReported Allergen(s)Allergy TypeDate of OnsetReaction(s) FacilityChlorhexidine (3 sources)ChlorhexidineDrug Cqyhabu65-86-6987NggbqtkMrixkycjf [facility] Sulfonamides (antibiotic) (3 sources)Sulfonamides (Antibiotic)Drug Emyqmip29-44-7423SyxlNyrxncuye Clinic Work Phone: (20 sources)Chlorhexidine; Translations: [CHLORHEXIDINE]Drug Lcdsgfs43-44-3997 Itching, [facility] Work Phone: (20 sources)Sulfonamides (Antibiotic); Translations: [SULFA (SULFONAMIDE ANTIBIOTICS)]Drug Ubiwxzs64-74-3393JxdgMcKitrick [facility] Work Phone: (2 sources)Sulfacetamide / SulfurDrug AllergyWMCHealth Jebbit Other (1 source)Sulfonamides (Antibiotic)Drug allergy (disorder)[facility] Repository (1 source)SulfacetamideDrug Modnrit85-54-2451BbnehfnatUniversity Hospitals [facility] Repository (1 source)SulfurDrug Ukavsvo18-99-8999TdrzzwigzUniversity Hospitals [facility] Repository Medications Current Medications MedicationDrug Class(es)DatesSig (Normalized)Sig (Original)[id number] 200 actuat albuterol 0.09 mg/actuat metered dose inhaler (20 sources)beta2-Adrenergic AgonistStart: 09-13-2024 End: 87-20-3526cpxt 2 puff(s) by inhalation every four hours for wheezing albuterol HFA (ProAir HFA) 90 mcg/act inhaler Indications: Asthma, unspecified asthma severity, unspecified whether complicated, unspecified whether persistent (HCC) Inhale 2 puffs every 4 (four) hours if needed for wheezing or shortness of breath 8.5 g 11 09/13/2024 09/13/2025 ActiveStart: 06-30-2021 End: 15-57-4007pnli 2 puff(s) by inhalation every four hours as needed for wheezingalbuterol HFA (VENTOLIN HFA) 90 mcg/actuation inhaler Indications: Restrictive lung disease , Simple chronic bronchitis (HCC) Inhale 2 Puffs as instructed every 4 hours as needed for wheezing/shortness of breath. 1 Each 5 06/30/2021 01/01/2023 DiscontinuedStart: 12-15-2020 End: 80-79-9170fcuj 2 puff(s) by mouth every six hoursVENTOLIN HFA 90 mcg/actuation inhaler Indications: Restrictive lung disease inhale 2 puffs by mouthINTO THE LUNGS every 6 hours 1 Each 12/15/2020 06/30/2021 Discontinued Start: 11-06-2019 End: 35-82-8310phutnxagb (PROVENTIL) 2.5 mg /3 mL (0.083 %) nebulizer solution inhale contents of 1 vial ( 3 milliliters ) in nebulizer by mouth... (REFER TO PRESCRIPTION NOTES). 11/06/2019 06/15/2022 Discontinued (Course of therapy completed)Start: 11-04-2019 End: 77-61-1853Ebenoaskm Sulfate (ACCUNEB) 1.25 mg/3 mL nebulizer solution Indications: Dyspnea, unspecified type Use 1 Ampule via nebulizer every 6 hours as needed for Wheezing/Shortness of Breath. 120 Vial 11 11/04/2019 03/15/2021 DiscontinuedComment on above:inhale contents of 1 vial ( 3 milliliters ) in nebulizer by mouth... (REFER TO PRESCRIPTION NOTES).inhale 2 puffs by mouth INTO THE LUNGS every 6 hoursInhale 2 Puffs as instructed every 4 hours as needed for wheezing/shortness of breath.albuterol-budesonide HFA (AIRSUPRA) 90-80 mcg/actuation inhaler (20 sources)Start: 69-14-8798smfhbbozg-budesonide HFA (AIRSUPRA) 90-80 mcg/actuation inhaler Take 2 Puffs by mouth every 4 hoursas needed for wheezing/shortness of breath. Do not take more than 12 inhalations in a 24 hour period. 10.7 g 3 09/12/2023 Activeamoxicillin 875 mg / clavulanate 125 mg oral tablet (1 source)Penicillin-class AntibacterialStart: 06-04-2022 End: 76-22-8247bmfu 1 tablet by mouth twice dailyamoxicillin-clavulanic acid (AUGMENTIN) 875-125 mg per tablet Indications: Abnormal CT of the chestTake 1 tablet by mouth twice daily for 7 days. 1 tablet 0 06/04/2022 06/11/2022 Active Comment on above:Take 1 tablet by mouth twice daily for 7 days.aspirin 81 mg delayed release oral tablet (18 sources)Platelet Aggregation Inhibitor, Nonsteroidal Anti-inflammatory Drug End: 08-07-1446rpxp 1 tablet by mouth once dailyaspirin 81 MG EC tablet Take 81 mg by mouth Daily 09/14/2024 Discontinued (Med list cleanup)bifidobacterium animalis [id number] unt / lactobacillus acidophilus [id number] unt oral capsule (20 sources)Start: 76-34-4079Sxybxizrd Product (Probiotic Daily) capsule 1 (one) time each day at the same time 10/03/2021 Activebiotin 2.5 mg oral capsule (20 sources)Start: 54-21-2287Psrrjq 2,500 mcg cap 05/07/2016 Activecephalexin 500 mg oral capsule (4 sources)Cephalosporin AntibacterialStart: 08-12-2024 End: 69-03-1890ipkv 1 capsule by mouth in the morning, then take 1 capsule by mouth in the evening, then take 1 capsule by mouth at bedtimecephalexin (Keflex) 500 MG capsule Indications: Folliculitis Take 1 capsule (500 mg) by mouth in the morning and 1 capsule (500 mg) in the evening and 1 capsule (500 mg) before bedtime. Do all this for 7 days. 21 capsule 08/12/2024 08/19/2024 Active clopidogrel 75 mg oral tablet (20 sources)P2Y12 Platelet InhibitorStart: 84-65-2923umjj 1 tablet by mouth once dailyclopidogrel (PLAVIX) 75 mg tablet Take 1 tablet by mouth once daily. 90 tablet 07/30/2024 Activecyclobenzaprine hydrochloride 10 mg oral tablet (20 sources)Muscle RelaxantStart: 10-12-2024 End: 72-65-1484nocx 1 tablet by mouth three times daily as needed for muscle spasmscyclobenzaprine (FLEXERIL) 10 mg tablet Indications: Muscle cramps , Nodular sclerosing Hodgkin's lymphoma, unspecified body region (HCC) TAKE 1 TABLET BY MOUTH THREE TIMES A DAY NEEDED FOR MUSCLESPASM 90 tablet 2 10/12/2024 01/10/2025 ActiveStart: 07-08-2024 End: 17-97-9115eyuc 1 tablet by mouth three times daily as needed for muscle spasmscyclobenzaprine (FLEXERIL) 10 mg tablet Indications: Muscle cramps , Nodular sclerosing Hodgkin's lymphoma, unspecified body region (HCC) TAKE 1 TABLET BY MOUTH THREE TIMES A DAY NEEDED FOR MUSCLESPASM 90 tablet 2 07/08/2024 10/06/2024 ActiveStart: 01-14-2024 End: 39-06-2884mfbt 1 tablet by mouth three times daily as needed for muscle spasmscyclobenzaprine (FLEXERIL) 10 mg tablet Indications: Muscle cramps , Nodular sclerosing Hodgkin's lymphoma, unspecified body region (HCC) TAKE 1 TABLET BY MOUTH THREE TIMES A DAY NEEDED FOR MUSCLESPASM 90 tablet 2 04/07/2024 07/06/2024 ActiveStart: 2023 End: 95-81-5338bbld 1 tablet by mouth twice daily as needed for muscle spasms cyclobenzaprine (FLEXERIL) 10 mg tablet Indications: Muscle cramps , Nodular sclerosing Hodgkin's lymphoma, unspecified body region (HCC) Take 1 tablet by mouth two times a day as needed for muscle spasm. 60 tablet 12/09/2023 01/13/2024 DiscontinuedStart: 08-10-2022 End: 90-10-6787zlza 1 tablet by mouth three times daily as needed for muscle spasmscyclobenzaprine (FLEXERIL) 10 mg tablet Indications: Muscle cramps , Nodular sclerosing Hodgkin's lymphoma, unspecified body region (HCC) Take 1 tablet by mouth three times a day as needed for musclespasm. 90 tablet 1 01/07/2023 02/04/2023 DiscontinuedStart: 05-07-2022 End: 80-62-8015sivz 1 tablet by mouth three times daily as needed for muscle spasmscyclobenzaprine (FLEXERIL) 10 mg tablet Indications: Muscle cramps , Nodular sclerosing Hodgkin's lymphoma, unspecified body region (HCC) Take 1 tablet by mouth three times daily as needed for musclespasm. 90 tablet 2 05/07/2022 ActiveStart: 04-20-2021 End: 37-28-6671xrsa 1 tablet by mouth three times daily as neededcyclobenzaprine (FLEXERIL) 10 mg tablet Indications: Muscle cramps , Nodular sclerosing Hodgkin's lymphoma, unspecified body region (HCC) Take 1 tablet by mouth three times daily as needed. 90 qhteub3707/11/2021 09/03/2021 DiscontinuedStart: 02-07-2021 End: 65-00-1100wttmxytvrxigtbw (FLEXERIL) 10 mg tablet Indications: Muscle cramps , Nodular sclerosing Hodgkin's lymphoma, unspecified body region (HCC) Take 1 tablet by mouth three times daily as needed (may increase to 3 times daily for severe muscle cramping). 90 tablet 02/07/2021 03/14/2021 Discontinued Comment on above:Take 1 tablet by mouth three times daily as needed.Take 1 tablet by mouth three times daily as needed for muscle spasm.Take 1 tablet by mouth three times a day as needed for muscle spasm.dexlansoprazole 30 mg delayed release oral capsule (20 sources)Proton Pump InhibitorStart: 01-07-2024 End: 47-75-1130ifqy 1 capsule by mouth once dailydexlansoprazole (Dexilant) [address] capsule Indications: Gastroesophageal reflux disease, unspecified whether esophagitis present Take 1 capsule (30 mg) by mouth Daily Do not crush or chew. 90 capsule 3 10/06/2024 ActiveStart: 07-20-2019 End: 25-77-7000sdeq 1 capsule by mouth once dailyDexlansoprazole (DEXILANT) 30 mg CpDM Take 1 capsule by mouth once daily. 60 capsule 6 07/20/2019 06/10/2023 DiscontinuedDexilant ActiveComment on above:Take 1 capsule by mouth once daily. doxycycline hyclate 100 mg oral capsule (20 sources)Tetracycline-class DrugStart: 05-31-2023 End: 48-86-1518qfdr 1 capsule by mouth twice dailydoxycycline hyclate (VIBRAMYCIN) 100 mg capsule Indications: Restrictive lung disease Take 1 capsule by mouth two times a day for 5 days. 10 capsule 0 05/31/2023 06/05/2023 Active Start: 07-26-2022 End: 78-91-4206wzsx 1 capsule by mouth twice dailydoxycycline monohydrate (MONODOX) 100 mg capsule Take 1 capsule by mouth twice daily. 20 capsule 09/202209/13/2022 DiscontinuedStart: 06-04-2022 End: 99-40-8950egpv 1 capsule by mouth twice dailydoxycycline hyclate (VIBRAMYCIN) 100 mg capsule Indications: Abnormal CT of the chest Take 1 capsule by mouth twice daily for 7 days. 14 capsule 0 06/04/2022 06/11/2022 ActiveStart: 12-07-2021 End: 73-75-5371wieb 1 capsule by mouth once dailydoxycycline monohydrate (MONODOX) 100 mg capsule Indications: Acne vulgaris Take 1 capsule by mouthonce daily. 90 capsule 0 12/07/2021 04/23/2022 Discontinued (Course of therapy completed)Comment on above:Take 1 capsule by mouth once daily.Take 1 capsule by mouth twice daily for 7 days.Take 1 capsule by mouth twice daily.Take 1 capsule by mouth two times a day for 5 days.DULoxetine 30 mg delayed release oral capsule (20 sources)Serotonin and Norepinephrine Reuptake InhibitorStart: 06-08-2024 End: 41-00-3635qurr 1 capsule by mouth once dailyDULoxetine (Cymbalta) [address] capsule Indications: Anxiety , Major depressive disorder, single episode, mild , Neuropathy TAKE 1 CAPSULE (30 MG) BY MOUTH DAILY DO NOT CRUSH OR CHEW. 90 capsule 3 07/05/2024 ActiveStart: 04-12-2021 End: 00-28-7331yqvo 1 capsule by mouth once daily for anxietyDULoxetine (CYMBALTA) 30 mg capsule Indications: Encounter for palliative care , Anxiety Take 1 capsule by mouth once daily. 30 capsule 1 04/12/2021 05/17/2021 DiscontinuedComment on above:Take 1 capsule by mouth once daily.escitalopram 20 mg oral tablet (20 sources)Serotonin Reuptake InhibitorStart: 06-08-2024 End: 65-68-3550hdys 0.5 tablet by mouth once dailyescitalopram (Lexapro) 20 MG tablet Indications: Anxiety Take 0.5 tablets (10 mg) by mouth Daily 90tablet 3 06/08/2024 06/08/2024 Discontinued (Ineffective)Start: 03-11-2024 End: 97-81-8034fhov 1 tablet by mouth once dailyescitalopram (Lexapro) 20 MG tablet Indications: Anxiety Take 1 tablet (20 mg) by mouth Daily 90 tablet 3 03/11/2024 06/08/2024 Discontinued (Dose adjustment)Start: 09-30-2023 End: 13-22-8985lqad 1 tablet by mouth once dailyescitalopram oxalate (LEXAPRO) 10 mg tablet Take 1 tablet by mouth once daily. 90 tablet /01/2025 DiscontinuedStart: 09-19-2023 End: 45-99-3366koft 0.5 tablet by mouth once dailyescitalopram oxalate (LEXAPRO) 10 mg tablet Take 0.5 tablets by mouth once daily. 45 tablet 09/19/2023 Active fluconazole 100 mg oral tablet (3 sources)Azole AntifungalStart: 06-13-2023 End: 47-40-8721pkkx 1 tablet by mouth once dailyfluconazole (DIFLUCAN) 100 mg tablet Indications: Oral thrush Take 1 tablet by mouth once daily for7 days. 7 tablet 0 06/13/2023 06/20/2023 Activefluocinonide 0.5 mg/ml topical cream (20 sources)CorticosteroidStart: 91-39-5043orlloxnxbuom (Lidex) 0.05 % cream Indications: Dermatitis APPLY TO AFFECTED AREA TOPICALLY IN THE MORNING AND AT BEDTIME 60 g 08/10/2024 ActiveStart: 04-09-2024 End: 55-20-1808rnuadmzajiqt (Lidex) 0.05 % cream Indications: Dermatitis Apply 1 application topically in the morning and 1 application before bedtime. 60 g 04/09/2024 08/10/2024 DiscontinuedStart: 25-46-3765qtgajozmlupz (LIDEX) 0.05 % cream apply to affected area ON THE RIGHT HAND and legs TWICE A DAY 120g 2 01/19/2021 ActiveComment on above:apply to affected area ON THE RIGHT HAND and legs TWICE A UJRwklrybvrdfz-lmmulcnir-miknrzji (TRELEGY ELLIPTA) 200-62.5-25 mcg inhalation powder (20 sources)Start: 08-23-2023 End: 30-10-6772wjil 1 puff(s) by inhalation once daily bvklwsregux-enooqyqvc-kkyyikxb (TRELEGY ELLIPTA) 200-62.5-25 mcg inhalation powder Indications: Dyspnea on exertion , Bronchitis Inhale 1 Puff as instructed once daily. 60 Each 3 08/23/2023 11/21/2023 DiscontinuedStart: 80-82-8858epgl 1 puff(s) by inhalation once enfhvabxyytbplpc-eulczkshy-rvthxpce (TRELEGY ELLIPTA) 200-62.5-25 mcg inhalation powder Indications: Dyspnea on exertion , Bronchitis Inhale 1 Puff as instructed once daily. 60 Each 3 08/23/2023 ActiveStart: 06-17-2023 End: 65-16-8909njkt 1 puff(s) by inhalation once daily hfgwjwhfyug-lcccxkzhc-qzlwpmrz (TRELEGY ELLIPTA) 200-62.5-25 mcg inhalation powder Indications: Dyspnea on exertion , Bronchitis Inhale 1 Puff as instructed once daily. 60 Each 3 06/17/2023 08/22/2023 DiscontinuedStart: 87-52-1560wmgb 1 puff(s) by inhalation once hynjcldeakvfxewt-bqhrevwzo-hdtkzvis (TRELEGY ELLIPTA) 200-62.5-25 mcg inhalation powder Indications: Dyspnea on exertion , Bronchitis Inhale 1 Puff as instructed once daily. 60 Each 3 06/17/2023 Activegabapentin 300 mg oral capsule (20 sources)Anti-epileptic AgentStart: 08-26-2023 End: 81-03-7702qnnt 2 capsules by mouth in the eveninggabapentin (Neurontin) 300 MG capsule Indications: Nerve pain TAKE 2 CAPSULES BY MOUTH IN THE MORNING,2 CAPSULES IN THE EVENING AND 2 CAPSULES BEFORE BEDTIME. 540 capsule 1 12/02/2024 ActiveStart: 27-75-3050hhlt 1 capsule by mouth in the morning, then take 1 capsule by mouth in the evening, then take 1 capsule by mouth at bedtime gabapentin (Neurontin) 300 MG capsule Indications: Nerve pain Take 1 capsule (300 mg) by mouth in the morning and 1 capsule (300 mg) in the evening and 1 capsule (300 mg) before bedtime. 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 07/20/2024 07/20/2025 Activeketoconazole 20 mg/ml topical cream (20 sources)Azole AntifungalStart: 14-80-6252nnjculuzxmxb (NIZOral) 2 % cream Apply 1 application topically 1 (one) time each day at the same time 02/13/2022 ActiveLactobac no.41/Bifidobact no.7 (PROBIOTIC-10 ORAL) (20 sources)Lactobac no.41/Bifidobact no.7 (PROBIOTIC-10 ORAL) Take by mouth. ActiveLactobac no.41/Bifidobact no.7 (PROBIOTIC-10 ORAL) Take by mouth. 0 Active Comment on above:Take by mouth.levoFLOXacin 750 mg oral tablet (20 sources)Quinolone AntimicrobialStart: 08-01-2023 End: 81-14-9458bqdd 1 tablet by mouth once dailylevoFLOXacin (LEVAQUIN) 750 mg tablet Take 1 tablet by mouth once daily for 7 days. 7 tablet 0 08/26/2023 09/02/2023 ActiveStart: 06-10-2023 End: 95-41-9870lvnb 1 tablet by mouth once dailylevoFLOXacin (LEVAQUIN) 750 mg tablet Take 1 tablet by mouth once daily. 10 tablet 0 06/10/2023 2023 Discontinued (Course of therapy completed)levothyroxine sodium 0.075 mg oral tablet (20 sources)l-ThyroxineStart: 03-36-7958owfi 1 tablet by mouth before mealtime levothyroxine (Synthroid, Levoxyl) 75 MCG tablet Indications: Acquired hypothyroidism Take 1 tablet(75 mcg) by mouth in the morning. Take before meals. 90 tablet 3 05/02/2024 ActiveStart: 10-12-2019 End: 61-92-9112mfns 1 tablet by mouth once dailylevothyroxine (SYNTHROID) 75 mcg tablet Take 1 tablet by mouth once daily. 10/12/2019 ActiveStart: 05-09-2017 End: 65-44-6366ywfh 1 tablet by mouth once dailylevothyroxine (SYNTHROID) 50 mcg tablet Indications: Acquired hypothyroidism Take 1 tablet by mouthonce daily. 30 tablet 1 05/09/2017 05/17/2021 DiscontinuedSynthroid ActiveComment on above:Take 1 tablet by mouth once daily.lisinopril 5 mg oral tablet (20 sources)Angiotensin Converting Enzyme InhibitorStart: 08-59-0273xhot 1 tablet by mouth once dailylisinopril (ZESTRIL) 5 mg tablet Take 1 tablet by mouth once daily. 90 tablet 07/30/2024 ActiveLORazepam 0.5 mg oral tablet (20 sources)BenzodiazepineStart: 12-11-2022 End: 77-04-9719dwsf 1 tablet by mouth four times daily as needed for anxiety LORazepam (Ativan) 0.5 MG tablet Indications: Anxiety Take 1 tablet (0.5 mg) by mouth 4 (four) times a day as needed for anxiety 120 tablet 2 11/13/2024 Active Start: 11-11-2022 End: 91-69-2258kyvx 1 tablet by mouth twice daily, then take 1-2 tablets by mouth at bedtimeLORazepam (ATIVAN) 0.5 mg Indications: Nodular sclerosing Hodgkin's lymphoma, unspecified body region (HCC) , Neoplastic (malignant) related fatigue , Chemotherapy-induced neuropathy (HCC) take 1 tablet by mouth twice a day if needed and take 1 TO 2 TABLETS at bedtime if needed 120 tablet 0 11/11/2022 12/01/2022 ExpiredStart: 10-09-2022 End: 03-49-0632sxnt 1 tablet by mouth twice daily, then take 1-2 tablets by mouth at bedtimeLORazepam (ATIVAN) 0.5 mg Indications: Nodular sclerosing Hodgkin's lymphoma, unspecified body region (HCC) , Neoplastic (malignant) related fatigue , Chemotherapy-induced neuropathy (HCC) take 1 tablet by mouth twice a day if needed and take 1 TO 2 TABLETS at bedtime if needed 120 tablet 0 10/09/2022 11/01/2022 ActiveStart: 08-29-2022 End: 20-56-0070irtq 1 tablet by mouth twice daily, then take 1-2 tablets by mouth at bedtimeLORazepam (ATIVAN) 0.5 mg Indications: Nodular sclerosing Hodgkin's lymphoma, unspecified body region (HCC) , Neoplastic (malignant) related fatigue , Chemotherapy-induced neuropathy (HCC) take 1 tablet by mouth twice a day if needed and take 1 TO 2 TABLETS at bedtime if needed 120 tablet 0 09/06/2022 10/01/2022 DiscontinuedStart: 07-25-2022 End: 92-43-3979gqvq 1 tablet by mouth twice daily, then take 1-2 tablets by mouth at bedtimeLORazepam (ATIVAN) 0.5 mg Indications: Nodular sclerosing Hodgkin's lymphoma, unspecified body region (HCC) , Neoplastic (malignant) related fatigue , Chemotherapy-induced neuropathy (HCC) take 1 tablet by mouth twice a day if needed and take 1 TO 2 at bedtime if needed 120 tablet 07/25/2022 08/22/2022 ExpiredStart: 06-12-2022 End: 25-28-5040udpl 1 tablet by mouth twice daily, then take 1-2 tablets by mouth at bedtimeLORazepam (ATIVAN) 0.5 mg Indications: Nodular sclerosing Hodgkin's lymphoma, unspecified body region (HCC) , Neoplastic (malignant) related fatigue , Chemotherapy-induced neuropathy (HCC) take 1 tablet twice a day if needed and take 1 to 2 tablets by mouth at bedtime if needed 120 tablet 0 06/12/2022 07/03/2022 ActiveStart: 05-14-2022 End: 03-00-8196pblj 1 tablet by mouth twice daily, then take 1-2 tablets by mouth at bedtimeLORazepam (ATIVAN) 0.5 mg Indications: Nodular sclerosing Hodgkin's lymphoma, unspecified body region (HCC) , Neoplastic (malignant) related fatigue , Chemotherapy-induced neuropathy (HCC) take 1 tablet twice a day if needed and take 1 to 2 tablets by mouth at bedtime if needed 120 tablet 0 05/14/2022 06/05/2022 ActiveStart: 04-16-2022 End: 06-57-9158nhcb 1 tablet by mouth twice daily, then take 1-2 tablets by mouth at bedtimeLORazepam (ATIVAN) 0.5 mg Indications: Nodular sclerosing Hodgkin's lymphoma, unspecified body region (HCC) , Neoplastic (malignant) related fatigue , Chemotherapy-induced neuropathy (HCC) take 1 tablet twice a day if needed and take 1 to 2 tablets by mouth at bedtime if needed 120 tablet 0 04/16/2022 05/08/2022 ActiveStart: 03-15-2022 End: 53-98-1020bhuh 1 tablet by mouth twice daily, then take 1-2 tablets by mouth at bedtimeLORazepam (ATIVAN) 0.5 mg Indications: Nodular sclerosing Hodgkin's lymphoma, unspecified body region (HCC) , Neoplastic (malignant) related fatigue , Chemotherapy-induced neuropathy (HCC) take 1 tablet twice a day if needed and take 1 to 2 tablets by mouth at bedtime if needed 120 tablet 0 03/15/2022 04/06/2022 ActiveStart: 02-15-2022 End: 87-63-6921vafi 1 tablet by mouth twice daily, then take 1-2 tablets by mouth at bedtimeLORazepam (ATIVAN) 0.5 mg Indications: Nodular sclerosing Hodgkin's lymphoma, unspecified body region (HCC) , Neoplastic (malignant) related fatigue , Chemotherapy-induced neuropathy (HCC) take 1 tablet twice a day if needed and take 1 to 2 tablets by mouth at bedtime if needed 120 tablet 0 02/15/2022 03/09/2022 ActiveStart: 01-20-2022 End: 21-32-5514rure 1 tablet by mouth twice daily, then take 1-2 tablets by mouth at bedtimeLORazepam (ATIVAN) 0.5 mg Indications: Nodular sclerosing Hodgkin's lymphoma, unspecified body region (HCC) , Neoplastic (malignant) related fatigue , Chemotherapy-induced neuropathy (HCC) take 1 tablet twice a day if needed and take 1 to 2 tablets by mouth at bedtime if needed 120 tablet 0 01/20/2022 02/12/2022 ActiveStart: 12-19-2021 End: 59-62-5328frcb 1 tablet by mouth twice daily, then take 1-2 tablets by mouth at bedtimeLORazepam (ATIVAN) 0.5 mg Indications: Nodular sclerosing Hodgkin's lymphoma, unspecified body region (HCC) , Neoplastic (malignant) related fatigue , Chemotherapy-induced neuropathy (HCC) take 1 tablet twice a day if needed and take 1 to 2 tablets by mouth at bedtime if needed 120 tablet 0 12/19/2021 01/12/2022 ActiveStart: 11-15-2021 End: 15-14-2229ctsu 1 tablet by mouth twice daily, then take 1-2 tablets by mouth at bedtimeLORazepam (ATIVAN) 0.5 mg Indications: Nodular sclerosing Hodgkin's lymphoma, unspecified body region (HCC) , Neoplastic (malignant) related fatigue , Chemotherapy-induced neuropathy (HCC) take 1 tablet twice a day if needed and take 1 to 2 tablets by mouth at bedtime if needed 120 tablet 0 11/15/2021 12/10/2021 ActiveStart: 10-12-2021 End: 19-08-2813hlvw 1 tablet by mouth twice daily, then take 1-2 tablets by mouth at bedtimeLORazepam (ATIVAN) 0.5 mg Indications: Nodular sclerosing Hodgkin's lymphoma, unspecified body region (HCC) , Neoplastic (malignant) related fatigue , Chemotherapy-induced neuropathy (HCC) take 1 tablet twice a day if needed and take 1 to 2 tablets by mouth at bedtime if needed 120 tablet 0 10/12/2021 11/08/2021 ActiveStart: 08-16-2021 End: 05-81-7953jtoe 1 tablet by mouth twice daily, then take 1-2 tablets by mouth at bedtimeLORazepam (ATIVAN) 0.5 mg Indications: Nodular sclerosing Hodgkin's lymphoma, unspecified body region (HCC) , Neoplastic (malignant) related fatigue , Chemotherapy-induced neuropathy (HCC) take 1 tablet twice a day if needed and take 1 to 2 tablets by mouth at bedtime if needed 120 tablet 0 09/11/2021 10/09/2021 ActiveStart: 06-16-2021 End: 12-70-2640hwxs 1 tablet by mouth twice daily, then take 1-2 tablets by mouth at bedtimeLORazepam (ATIVAN) 0.5 mg Indications: Nodular sclerosing Hodgkin's lymphoma, unspecified body region (HCC) , Neoplastic (malignant) related fatigue , Chemotherapy-induced neuropathy (HCC) take 1 tablet twice a day if needed and take 1 to 2 tablets by mouth at bedtime if needed 120 tablet 0 2021 08/08/2021 ActiveStart: 10-14-2020 End: 08-27-0634szqo 1 tablet by mouth twice daily, then take 1-2 tablets by mouth at bedtimeLORazepam (ATIVAN) 0.5 mg Indications: Nodular sclerosing Hodgkin's lymphoma, unspecified body region (HCC) , Neoplastic (malignant) related fatigue , Chemotherapy-induced neuropathy (HCC) take 1 tablet twice a day if needed and take 1 to 2 tablets by mouth at bedtime if needed 120 tablet 0 05/17/2021 06/14/2021 ActiveStart: 10-27-2019 End: 73-36-9196tnds 1 tablet by mouth three times daily as neededLORazepam (ATIVAN) 0.5 mg Take 1 tablet by mouth three times daily as needed. 10/27/2019 2Discontinued (Duplicate Entry)Ativan ActiveComment on above:take 1 tablet twice a day if needed and take 1 to 2 tablets by mouth at bedtime if neededtake 1 tablet by mouth twice a day if needed and take 1 TO 2 at bedtime if neededtake 1 tablet by mouth twice a day if needed and take 1 TO 2 TABLETS at bedtime if neededtake 1 tablet by mouth four times a day if needed for anxiety methylPREDNISolone (8 sources)CorticosteroidStart: 05-04-2024 End: 82-88-4861ytnfdjJAYJEWYgrksr (MEDROL, RON,) 4 mg Dose-Pack Take as instructed per package. 21 tablet 05/04/2024 05/10/2024 ActiveStart: 02-02-2021 methylPREDNISolone 4 MG as directed Orally Once a day for 6 days Jan, Not-Taking/PRNStart: 03-16-2020 End: 63-14-6800knxltnIGFDCQHntvmj (MEDROL, RON,) 4 mg Dose-Pack As directed 1 Package 03/16/2020 03/15/2021 Discontinued (Course of therapy completed)24 hr metoprolol succinate 100 mg extended release oral tablet (20 sources)beta-Adrenergic BlockerStart: 51-36-1075emsz 1 tablet by mouth once dailymetoprolol succinate ER (TOPROL XL) 100 mg Take 1 tablet by mouth once daily. 90 tablet 07/30/2024 Activemirtazapine 15 mg oral tablet (20 sources)Start: 08-26-2023 End: 04-74-2390rtju 1 tablet by mouth at bedtimemirtazapine (Remeron) 15 MG tablet Indications: Major depressive disorder, single episode, mild (HCC) (CMS/HCC) Take 1 tablet (15 mg) by mouth at bedtime 30 tablet 08/26/2023 11/06/2023 DiscontinuedStart: 05-22-2022 End: 92-82-5940vzeh 7.5 mg by mouth once daily at bedtimemirtazapine (REMERON) 30 mg tablet Take 7.5 mg by mouth daily at bedtime. 05/22/2022 10/17/2023 Disc ontinuedStart: 74-83-0027krzrvzydggh (REMERON) 30 mg tablet Take 15 mg by mouth daily at bedtime. 0 05/22/2022 ActiveStart: 05-22-2022 End: 16-72-6679tcsh 1 tablet by mouth once daily at bedtimemirtazapine (REMERON) 30 mg tablet Take 30 mg by mouth daily at bedtime. 0 05/22/2022 ActiveStart: 03-02-2020 End: 29-18-4060smis 1 tablet by mouth once daily at bedtimemirtazapine (REMERON) 30 mg tablet Take 1 tablet by mouth daily at bedtime. 90 tablet 1 03/02/2020 0 04/12/2021 Discontinued (Course of therapy completed)Remeron ActiveComment on above:Take 30 mg by mouth daily at bedtime.molnupiravir 200 MG capsule (2 sources)Start: 03-29-2023 End: 08-26-4533lufe 4 capsules by mouth in the morningmolnupiravir 200 MG capsule Indications: COVID-19 Take 4 capsules (800 mg) by mouth in the morning a nd 4 capsules (800 mg) before bedtime. Do all this for 5 days. Follow instructions about contraceptive use during and after treatment (if of child- bearing potential). 40 capsule 0 03/29/2023 04/03/2023 ActiveNebulizer Accessories kit (15 sources)Start: 60-02-1998Hvwuifwrs Accessories kit 1 kit every 6 months as needed. 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 Do not start before June 14, 2022. 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 Do not start before July 14, 2021. 120 tablet 0 07/14/2021 08/13/2021 Active oxyCODONE HCl Not-Taking/PRNComment on above:Take 1 tablet by mouth every 4 hours as needed (moderate-severe cancer pain) for up to 30 days. Do not start before April 19, 2021.Take 1 tablet by mouth every 4 hours as needed (moderate- severe cancer pain) for up to 30 days.Take 1 tablet by mouth every 4 hours as needed (moderate-severe cancer pain) for up to 30 days. Do not start before July 14, 2021.Take 1 tablet by mouth every 4 hours as needed (moderate-severe cancer pain) for up to 30 days. Do not start before June 14, 2022.Take 1 tablet by mouth every 4 hours as needed (moderate-severe cancer pain) for up to 30 days. Do not start before November 09, 2022.Take 1 tablet by mouth every 6 hours as needed for pain for up to 30 days.phenazopyridine hydrochloride 200 mg oral tablet (1 source)Start: 61-03-0275ttns 1 tablet by mouth every eight hoursPyridium 200 MG 1 tablet after meals Orally Three times a day for 2 day(s) Jan, ActivepredniSONE 10 mg oral tablet (20 sources)Start: 11-11-2023 End: 08-69-8850fmkd 4 tablets by mouth once daily, then take 3 tablets by mouth once daily, then take 2 tablets bymouth once daily, then take 1 tablet by mouth once dailypredniSONE (Deltasone) 10 MG tablet Indications: Restrictive lung disease Take 4 tablets (40 mg) bymouth Daily for 3 days, THEN 3 tablets (30 mg) Daily for 3 days, THEN 2 tablets (20 mg) Daily for 3days, THEN 1 tablet (10 mg) Daily for 3 days. 30 tablet 11/11/2023 11/28/2023 DiscontinuedStart: 11-11-2023 End: 70-40-2435xxqa 1 tablet by mouth once dailypredniSONE (DELTASONE) 10 mg tablet Take 10 mg by mouth once daily. 11/11/2023 11/22/2023 ExpiredStart: 08-26-2023 End: 05-13-4339cgjm 4 tablets by mouth once daily, then take 3 tablets by mouth once daily, then take 2 tablets bymouth once daily, then take 1 tablet by mouth once dailypredniSONE (DELTASONE) 10 mg tablet Take 4 tablets by mouth once daily for 3 days, THEN 3 tablets once daily for 3 days, THEN 2 tablets once daily for 3 days, THEN 1 tablet once daily for 3 days. 30 tablet 0 08/26/2023 09/06/2023 ActiveStart: 08-01-2023 End: 50-50-5841bydhvmBCBF (DELTASONE) 10 mg tablet take 6 tablets by mouth daily for 2 days then take 5 tablets zuri... (REFER TO PRESCRIPTION NOTES). 0 08/01/2023 08/26/2023 DiscontinuedStart: 05-31-2023 End: 95-84-2818zyve 2 tablets by mouth once dailypredniSONE (DELTASONE) 20 mg tablet Indications: Restrictive lung disease Take 2 tablets by mouth once daily for 5 days. 10 tablet 0 05/31/2023 06/05/2023 ActiveStart: 04-09-2023 End: 93-60-5808kfllrdAREH (DELTASONE) 10 mg tablet take 4 tablets by mouth once daily for 3 days take 3 tablets once... (REFER TO PRESCRIPTION NOTES). 0 04/09/2023 ActiveStart: 06-04-2022 End: 32-05-0889rvfv 2 tablets by mouth once dailypredniSONE (DELTASONE) 20 mg tablet Indications: Abnormal CT of the chest Take 2 tablets by mouth once daily. 10 tablet 0 06/04/2022 07/19/2022 DiscontinuedComment on above:Take 2 tablets by mouth once daily.take 4 tablets by mouth once daily for 3 days take 3 tablets once... (REFER TO PRESCRIPTION NOTES).Take 4 tablets by mouth once daily for 3 days, THEN 3 tablets once daily for 3 days, THEN 2 tabletsonce daily for 3 days, THEN 1 tablet once daily for 3 days.Take 2 tablets by mouth once daily for 5 days.pregabalin 100 mg oral capsule (10 sources)Start: 10-18-2022 End: 67-45-5100tncv 1 capsule by mouth twice dailypregabalin (LYRICA) 100 mg capsule Indications: Palliative care by specialist , Nodular sclerosing H odgkin's lymphoma, unspecified body region (HCC) , Cancer related pain Take 1 capsule by mouth twice daily for 90 days. 60 capsule 2 10/18/2022 01/16/2023 ActiveComment on above:Take 1 capsule by mouth twice daily for 90 days. 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 take 1 tablet by mouth every 6 hours if neededrivaroxaban 10 mg oral tablet (20 sources)Factor Xa InhibitorStart: 12-14-2020 End: 48-95-6036isau 1 tablet by mouth once dailyrivaroxaban (Xarelto) 10 MG tablet Indications: Hx of pulmonary embolus Take 1 tablet (10 mg) by mouth Daily 90 tablet 3 09/28/2024 Activetake 1 tablet by mouth at mealtimerivaroxaban (Xarelto) 20 MG tablet Take 20 mg by mouth in the evening. Take with meals Take with food. 0 ActiveXarelto ActiveComment on above:Take 1 tablet by mouth once daily.take 1 tablet by mouth once dailyrosuvastatin calcium 20 mg oral tablet (20 sources)HMG-CoA Reductase InhibitorStart: 07-30-2024 End: 50-25-2086xwqy 1 tablet by mouth once dailyrosuvastatin (CRESTOR) 20 mg tablet Take 1 tablet by mouth once daily. 90 tablet 07/30/2024 Activetake 1 tablet by mouth once dailyrosuvastatin (Crestor) 40 MG tablet Take 40 mg by mouth Daily Activesodium chloride 30 mg/ml inhalation solution (20 sources)Start: 67-94-4564cpokwm chloride (NEBUSAL) 3 % nebulizer solution Use 4 mL via nebulizer two times a day. 160 mL 2 11/21/2023 ActiveStart: 08-01-2022 End: 88-79-0858puxekm chloride (NEBUSAL) 3 % nebulizer solution Indications: Productive cough Use 4 mL via nebulizer twice daily. 240 mL 08/01/2022 08/31/2022 ExpiredStart: 12-27-2021 End: 58-97-4868scncpd chloride 0.9 % (flush) 10 mL (BD POSIFLUSH)Comment on above:Use 4 mL via nebulizer twice daily.spironolactone 25 mg oral tablet (20 sources)Aldosterone AntagonistStart: 83-39-6686vdor 0.5 tablet by mouth once dailyspironolactone (ALDACTONE) 25 mg tablet Take 0.5 tablets by mouth once daily. 45 tablet 07/30/2024 ActiveStart: 07-20-2024 End: 51-74-1720oprhrdeplgwvzx (Aldactone) 25 MG tablet Take 12.5 mg by mouth in the morning. 07/20/2024 07/20/20253987Lhetyu49 actuat tiotropium 0.0025 mg/actuat inhalation spray (20 sources)AnticholinergicStart: 11-46-4430qhzp 2 puff(s) by inhalation once dailytiotropium bromide (SPIRIVA RESPIMAT) 2.5 mcg/actuation inhaler Indications: Bronchitis , Restrictive lung disease Inhale 2 Puffs as instructed once daily. 4 g 5 06/13/2023 ActiveStart: 10-02-2021 End: 36-38-3307prxx 2 puff(s) by inhalation once dailySPIRIVA RESPIMAT 2.5 mcg/actuation inhaler Indications: Simple chronic bronchitis (HCC) INHALE 2 PUF FS DIRECTED ONCE DAILY 4 g 11 10/02/2021 07/19/2022 DiscontinuedStart: 04-12-2021 End: 06-21-4453uxfg 2 puff(s) by inhalation once dailytiotropium bromide (SPIRIVA RESPIMAT) 2.5 mcg/actuation inhaler Indications: Simple chronic bronchitis (HCC) Inhale 2 Puffs as instructed once daily. 1 Inhaler 5 04/12/2021 10/02/2021 DiscontinuedComment on above:Inhale 2 Puffs as instructed once daily. INHALE 2 PUFFS DIRECTED ONCE DAILYtraZODone hydrochloride 150 mg oral tablet (20 sources)Serotonin Reuptake InhibitorStart: 11-28-2023 End: 05-71-1305eniLWRllq (Desyrel) 150 MG tablet Indications: Primary insomnia Take 1 tablet (150 mg) by mouth as needed at bedtime for sleep 90 tablet 3 06/18/2024 ActiveStart: 05-06-2023 End: 58-73-8784ifng 1 tablet by mouth at bedtimetraZODone (Desyrel) 50 MG tablet Indications: Primary insomnia take 1 tablet by mouth at bedtime ifneeded for 90 DAYS 90 tablet 3 05/06/2023 11/28/2023 DiscontinuedStart: 02-04-2023 End: 75-40-5396atzu 1 tablet by mouth every twenty-four hours as neededtraZODone (DESYREL) 100 mg tablet Take 100 mg by mouth at bedtime as needed. AT BEDTIME. /01/2025 Discontinued End: 27-31-3411ueag 2 tablets by mouth once daily at bedtimetraZODone (DESYREL) 50 mg tablet Take 100 mg by mouth daily at bedtime. 10/09/2023 Discontinued Comment on above:Take 100 mg by mouth daily at bedtime. triamcinolone acetonide 10 mg/ml injectable suspension (20 sources)CorticosteroidStart: 09-05-2021 End: 98-80-8794nwrutujuqjmne acetonide 5 mg injection (KeNALog 10)Start: 07-28-2021 End: 08-90-5018phivrxcuegsoy acetonide 10 mg injection (KeNALog 10)Start: 37-06-1595miahjeaqrjqfj acetonide (KENALOG) 0.1 % ointment APPLY TO THE AFFECTED AREA TWICE A DAY FOR 5 DAYS 10/06/2019 ActiveComment on above:APPLY TO THE AFFECTED AREA TWICE A DAY FOR 5 DAYS30 actuat umeclidinium 0.0625 mg/actuat / vilanterol 0.025 mg/actuat dry powder inhaler (20 sources)Anticholinergic, beta2-Adrenergic AgonistStart: 09-02-2024 End: 89-15-4157dchd 1 puff(s) by inhalation once dailyANORO ELLIPTA 62.5-25 mcg/actuation inhaler Indications: Bronchiectasis without complication (HCC) I NHALE 1 PUFF ONCE DAILY DIRECTED 60 each 1 11/02/2024 ActiveStart: 02-24-2024 End: 43-86-6143mtnl 1 dose by inhalation once dailyANORO ELLIPTA 62.5-25 mcg/actuation inhaler INHALE 1 INHALATION INSTRUCTED ONCE DAILY. 60 each 1 06/25/2024 09/02/2024 DiscontinuedStart: 11-21-2023 End: 86-49-7922rabk 1 dose by inhalation once dailyANORO ELLIPTA 62.5-25 mcg/actuation inhaler INHALE 1 INHALATION INSTRUCTED ONCE DAILY. 60 Each 1 12/02/2023 ActivevalACYclovir 1000 mg oral tablet (2 sources)Herpesvirus Nucleoside Analog DNA Polymerase Inhibitor, Herpes Simplex Virus Nucleoside Analog DNA Polymerase Inhibitor, Herpes Zoster Virus Nucleoside Analog DNA Polymerase InhibitorStart: 09-14-2024 End: 92-91-3940docx 1 tablet by mouth in the morning, then take 1 tablet by mouth in the evening, then take 1 tablet by mouth at bedtimevalACYclovir (Valtrex) 1 g tablet Indications: Herpes zoster without complication Take 1 tablet (1,000 mg) by mouth in the morning and 1 tablet (1,000 mg) in the evening and 1 tablet (1,000 mg) before bedtime. Do all this for 7 days. 21 tablet 09/14/2024 09/21/2024 Active Completed/Discontinued Medications MedicationDrug Class(es)DatesSig (Normalized)Sig (Original)acetaminophen 325 mg oral tablet (20 sources)Start: 03-01-2014 End: 74-95-4828peit 325-650 mg by mouth every four hours as neededacetaminophen (TYLENOL) 325 mg tablet Take 1-2 tablets by mouth every 4 hours as needed (not to exceed 2000 mg in a 24 hour period). 0 03/01/2014 06/10/2023 Discontinued Comment on above:Take 1-2 tablets by mouth every 4 hours as needed (not to exceed 2000 mg in a 24 hour period).acyclovir 400 mg oral tablet (20 sources)Herpesvirus Nucleoside Analog DNA Polymerase Inhibitor, Herpes Simplex Virus Nucleoside Analog DNA Polymerase Inhibitor, Herpes Zoster Virus Nucleoside Analog DNA Polymerase InhibitorStart: 03-22-2020 End: 89-03-2987jggn 1 tablet by mouth twice dailyacyclovir (ZOVIRAX) 400 mg tablet take 1 tablet by mouth twice a day 180 tablet 3 06/05/2021 05/22/2022 DiscontinuedAcyclovir Not-Taking/PRNComment on above:take 1 tablet by mouth twice a dayalbuterol 0.833 mg/ml / ipratropium bromide 0.167 mg/ml inhalation solution (20 sources)Anticholinergic, beta2-Adrenergic AgonistStart: 05-31-2023 End: 58-28-6350jhlasvgpqmt-albuterol 3 mL nebulizer solution (DUONEB)Start: 05-14-2023 End: 59-93-7280yvlwptrvgoy-albuterol (Duo-Neb) 0.5-2.5 mg/3 mL nebulizer solution Indications: Asthma, unspecifiedasthma severity, unspecified whether complicated, unspecified whether persistent (HCC) Take 3 mL bynebulization every 6 (six) hours 180 mL 3 05/28/2024 12/01/2024 DiscontinuedStart: 06-15-2022 End: 61-02-7909egtl 3 mL by inhalation every six hours as needed for wheezing ipratropium-albuterol (DUONEB) 0.5 mg-3 mg(2.5 mg base)/3 mL nebu Indications: Dyspnea on exertion Inhale 3 mL as instructed every 6 hours as needed for wheezing/shortness of breath. 540 mL 1 06/15/2022 05/14/2023 DiscontinuedComment on above:Inhale 3 mL as instructed every 6 hours as needed for wheezing/shortness of breath.inhale contents of 1 vial in nebulizer by mouth every 6 hours if needed for wheezing or shortness of breathinhale contents of 1 vial ( 3 MILLILITERS ) in nebulizer by mouth and INTO THE LUNGS every 6 hours if needed for wheezing or shortness of breathamoxicillin 875 mg oral tablet (2 sources)Penicillin-class AntibacterialStart: 12-92-2569usfg 1 tablet by mouth every twelve hoursAmoxicillin 875 MG 1 tablet Orally every 12 hrs for 7 days Jan, Not-Taking/PRNatenolol 50 mg oral tablet (20 sources)beta-Adrenergic BlockerStart: 08-29-2017 End: 05-13-3991gmha 1 tablet by mouth twice dailyatenolol (TENORMIN) 50 mg tablet Indications: Tachycardia take 1 tablet by mouth twice a day 60 tablet 1 08/29/2017 07/30/2024 DiscontinuedAtenolol ActiveComment on above:take 1 tablet by mouth twice a dayazelastine hydrochloride 0.137 mg/actuat metered dose nasal spray (20 sources)Histamine-1 Receptor AntagonistStart: 03-28-2023 End: 81-21-8290wgdz 1 spray(s) nasal route twice dailyazelastine 0.1% nasal spray Use 1 Morris in each nostril two times a day. 30 mL 03/28/2023 2023 DiscontinuedComment on above:Use 1 Morris in each nostril two times a day. azithromycin 250 mg oral tablet (20 sources)Macrolide AntimicrobialStart: 04-19-2023 End: 24-26-0944iqrs 2 tablets by mouth once daily, then take 1 tablet by mouth once dailyazithromycin (ZITHROMAX Z-RON) 250 mg tablet Indications: Influenza with pneumonia Two (2) tablets by mouth the first day and then one (1) tablet by mouth daily for 4 days. 6 tablet 04/19/2023 06/13/2023 Discontinued (Course of therapy completed)Start: 07-13-1273hkob 2 tablets by mouth once daily, then take 1 tablet by mouth once dailyazithromycin (ZITHROMAX Z-RON) 250 mg tablet Indications: Sinus congestion , Nodular sclerosing Hodgkin's lymphoma, unspecified body region (HCC) Take two (2) tablets by mouth the first day and then one (1) tablet daily for 4 days. 6 tablet 0 05/19/2021 ActiveComment on above:Take two (2) tablets by mouth the first day and then one (1) tablet daily for 4 days.Two (2) tablets by mouth the first day and then one (1) tablet by mouth daily for 4 days.baclofen 5 mg oral tablet (20 sources)gamma-Aminobutyric Acid-ergic AgonistStart: 07-31-2021 End: 78-34-6994wzrm 1 tablet by mouth in the morning, then take 1 tablet by mouth in the evening, then take 1 tablet by mouth at bedtimebaclofen (Lioresal) 5 MG tablet Take 5 mg by mouth in the morning and 5 mg in the evening and 5 mg b efore bedtime. 08/06/2022 12/01/2024 DiscontinuedStart: 18-25-6214vapy 1 tablet by mouth twice dailybaclofen (LIORESAL) 5 mg tablet Indications: Muscle cramps , Nodular sclerosis classical Hodgkin lymphoma (HCC) Take 1 tablet by mouth twice daily. 60 tablet 1 07/31/2021 ActiveStart: 04-12-2021 End: 90-49-8381cbem 1 tablet by mouth three times dailybaclofen (LIORESAL) 5 mg tablet Indications: Muscle cramps , Nodular sclerosis classical Hodgkin lymphoma (HCC) Take 1 tablet by mouth three times daily. 90 tablet 2 04/12/2021 2021 ActiveStart: 01-11-2021 End: 11-54-9375iaez 1 tablet by mouth twice dailybaclofen (LIORESAL) 5 mg tablet Indications: Muscle cramps , Nodular sclerosis classical Hodgkin lymphoma (HCC) take 1 tablet by mouth twice a day 60 tablet 1 01/11/2021 03/10/2021 DiscontinuedComment on above:Take 1 tablet by mouth three times daily.take 1 tablet by mouth three times a dayTake 1 tablet by mouth twice daily.Take 1 tablet by mouth three times a day.betamethasone 3 mg/ml / betamethasone acetate 3 mg/ml injectable suspension (2 sources)CorticosteroidStart: 08-27-2023 End: 82-67-0167tkdgcjvoadogp acetate-betamethasone sodium phosphate 6 mg injection (CELESTONE)chlorhexidine gluconate 40 mg/ml medicated liquid soap (20 sources)Start: 12-06-2020 End: 18-71-2598hxedpngixkqoc (HIBICLENS) 4 % external liquid In groin as a wash 473 mL 11 12/06/2020 07/19/2022 DiscontinuedComment on above:In groin as a wash CHOLECALCIFEROL, VITAMIN D3, (VITAMIN D3 ORAL) (20 sources) End: 17-42-1665njak 1000 [IU] by mouth once dailyCHOLECALCIFEROL, VITAMIN D3, (VITAMIN D3 ORAL) Take 1,000 Units by mouth once daily. 07/30/2024 Discontinued take 1000 [IU] by mouth once dailyCHOLECALCIFEROL, VITAMIN D3, (VITAMIN D3 ORAL) Take 1,000 Units by mouth once daily. Activetake 1000 [IU] by mouth once daily CHOLECALCIFEROL, VITAMIN D3, (VITAMIN D3 ORAL) Take 1,000 Units by mouth once daily. 0 ActiveComment on above:Take 1,000 Units by mouth once daily.clindamycin 10 mg/ml topical lotion (20 sources)Lincosamide AntibacterialStart: 12-06-2020 End: 77-49-4183Hnsetmqfwhr Phosphate (CLEOCIN T) 1 % lotion To groin daily 60 mL 4 12/06/2020 04/23/2022 DiscontinuedComment on above:To groin dailydiclofenac sodium 0.01 mg/mg topical gel (20 sources)Nonsteroidal Anti-inflammatory DrugStart: 2023 End: 14-83-0700ahalg 4 g topically four times dailydiclofenac (VOLTAREN) 1 % topical gel Indications: Arthritis pain Apply 4 g to affected area four times daily. 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 100 mL 08/27/2019 03/15/2021 Discontinued (Course of therapy completed)estradiol 0.1 mg/ml vaginal cream (18 sources)EstrogenStart: 08-12-2024 End: 33-05-1149pvjpkawbf (Estrace) 0.1 MG/GM vaginal cream Indications: Hormone disorder , Dyspareunia, female , Vaginal dryness, menopausal 2g vaginal daily for 2 weeks, then 2 times weekly following initial 2 weeks 42.5 g 08/12/2024 12/01/2024 Discontinuedfluticasone propionate 0.05 mg/actuat metered dose nasal spray (9 sources)CorticosteroidStart: 06-13-2023 End: 32-94-9428muep 1 spray(s) nasal route once dailyfluticasone (FLONASE ALLERGY RELIEF) 50 mcg/actuation nasal spray Indications: Acute non-recurrent p ansinusitis Use 1 Morris in each nostril once daily. 11.1 mL 1 06/13/2023 2023 DiscontinuedStart: 34-93-3541lqgt 1 spray(s) nasal route once daily as neededFluticasone Propionate 50 MCG/ACT 1 spray in each nostril Nasally Once a day for 30 day(s) Jan, Not-Taking/PRNStart: actuat fluticasone furoate 0.2 mg/actuat / vilanterol 0.025 mg/actuat dry powder inhaler (20 sources)Corticosteroid, beta2-Adrenergic AgonistStart: 04-19-2023 End: 83-50-8614vzui 1 dose by inhalation once dailyfluticasone-vilanterol (BREO ELLIPTA) 200-25 mcg/dose inhaler Indications: Influenza with pneumoniaInhale 1 Inhalation as instructed once daily. 1 Each 3 04/19/2023 06/17/2023 Discontinued Start: 74-12-9834tpuz 1 puff(s) by inhalation in the morningFluticasone Furoate- Vilanterol (Breo Ellipta) 100-25 MCG/ACT aerosol powder Indications: Mild interm ittent asthma without complication (CMS/HCC) , Restrictive lung disease Inhale 1 puff in the morning. 60 each 3 01/21/2023 ActiveStart: 09-13-2022 End: 40-96-8883qtwo 1 dose by inhalation once dailyfluticasone-vilanterol (BREO ELLIPTA) 100-25 mcg/dose inhaler Inhale 1 Inhalation as instructed once daily. 1 Each 3 09/13/2022 01/01/2023 DiscontinuedComment on above:Inhale 1 Inhalation as instructed once daily.hydrocortisone 20 mg oral tablet (20 sources)CorticosteroidStart: 01-03-2023 End: 87-13-8719utyj 1 tablet by mouth twice dailyhydrocortisone (CORTEF) 20 mg tablet Take 1 tablet by mouth two times a day. 60 tablet 1 304/01/2024 Discontinued (Course of therapy completed)Comment on above:Take 1 tablet by mouth two times a day.hydrOXYzine hydrochloride 25 mg oral tablet (20 sources)AntihistamineStart: 05-17-2021 End: 32-41-1326jqiy 1 tablet by mouth every eight hours as neededhydrOXYzine HCl (ATARAX) 25 mg tablet Take 1 tablet by mouth three times daily as needed. Prescribed by PCP 05/17/2021 04/23/2022 DiscontinuedComment on above:Take 1 tablet by mouth three times daily as needed. Prescribed by PCPipratropium bromide 0.042 mg/actuat metered dose nasal spray (20 sources)AnticholinergicStart: 04-08-2024 End: 72-69-1190euwf 2 spray(s) nasal route in the morning, then take 2 spray(s) nasal route in the evening, then take 2 spray(s) nasal route at bedtime ipratropium (Atrovent) 0.06 % nasal spray Indications: Chronic rhinitis Administer 2 sprays into each nostril in the morning and 2 sprays in the evening and 2 sprays before bedtime. 15 mL 11 04/08/2024 12/01/2024 Discontinued levETIRAcetam 250 mg oral tablet (2 sources)Start: 12-26-2023 End: 63-06-4064tapr 1 tablet by mouth twice dailylevETIRAcetam (KEPPRA) 250 mg tablet Take 1 tablet by mouth two times a day. 60 tablet 12/26/2023 12/26/2023 Discontinued (Discontinued by Patient)10 ml lidocaine hydrochloride 10 mg/ml injection (2 sources)Antiarrhythmic, Amide Local AnestheticStart: 08-27-2023 End: 72-45-1180tbwwvamvf (PF) 10 mg/mL (1 %) 1 mL injection (XYLOCAINE) molnupiravir 200 mg capsule (2 sources)Start: 12-05-2022 End: 07-55-7346ivnmrperkkjg 200 mg capsule PLEASE SEE ATTACHED FOR DETAILED DIRECTIONS 0 12/05/2022 01/01/2023 DiscontinuedStart: 48-38-9781cnowdsywzcyx 200 mg capsule PLEASE SEE ATTACHED FOR DETAILED DIRECTIONS 0 12/05/2022 Active Comment on above:PLEASE SEE ATTACHED FOR DETAILED DIRECTIONSnaloxone hydrochloride 40 mg/ml nasal spray (20 sources)Opioid AntagonistStart: 05-04-2019 End: 47-35-9109vifianlg 4 mg/actuation nasal spray (NARCAN) Use 1 spray in one nostril as needed for overdose. Mayrepeat every 2 to 3 min in alternating nostrils until medical assistance is available 1 Box 11/02/2020 05/17/2021 DiscontinuedComment on above:Use 1 spray in one nostril. May repeat every 2 to 3 minutes as needed in alternating nostrils untilmedical assistance becomes available.Use 1 spray in one nostril as needed for overdose. May repeat every 2 to 3 min in alternating nostrils until medical assistance is hjczlukgh10 actuat olodaterol 0.0025 mg/actuat / tiotropium 0.0025 mg/actuat inhalation spray (3 sources)Anticholinergic, beta2-Adrenergic AgonistStart: 11-21-2023 End: 89-99-0523btnluluhhi-olodaterol (STIOLTO RESPIMAT) 2.5-2.5 mcg/actuation inhaler Inhale 2 Puffs as instructedonce daily. 1 Each 4 11/21/2023 11/21/2023 DiscontinuedStart: 77-30-5996hxsbpjlqnz-olodaterol (STIOLTO RESPIMAT) 2.5-2.5 mcg/actuation inhaler Inhale 2 Puffs as instructedonce daily. 1 Each 4 11/21/2023 Activepantoprazole 40 mg delayed release oral tablet (20 sources)Proton Pump InhibitorStart: 05-22-2023 End: 91-20-5405zlvi 1 tablet by mouth once dailypantoprazole DR (PROTONIX) 40 mg tablet Take 1 tablet by mouth once daily. 90 tablet 1 05/22/2023 07/30/2024 DiscontinuedComment on above:Take 1 tablet by mouth once daily.perflutren lipid microspheres (DEFINITY) 1.1 mg/mL injection (to be provided with echo procedure) (1 source)Start: 11-04-2019 End: 60-03-3407ecjckpretj lipid microspheres (DEFINITY) 1.1 mg/mL injection (to [...] mL 11/04/2019 03/15/2021 Discontinued (Course of therapy completed)perflutren lipid microspheres 1.3 mL in NaCl (PF) 0.9% 10 mL injection (DEFINITY) (20 sources)Start: 12-27-2021 End: 23-18-3207imeaxxllfh lipid microspheres 1.3 mL in NaCl (PF) 0.9% 10 mL injection (DEFINVerbling)tapentadol 50 mg oral tablet (4 sources)Opioid AgonistStart: 03-12-2021 End: 61-89-3858qcdp 1 tablet by mouth three times daily as neededtapentadol (NUCYNTA) 50 mg Indications: Chemotherapy-induced neuropathy (HCC) , Radiation induced neuropathy (HCC) , long term care social worker (current) use of opiate analgesic , 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 Do not start before March 12, 2021. 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 2 tablet 01/10/2021 02/27/2021 DiscontinuedComment on above:Take 1 tablet by mouth three times daily as needed for up to 30 days. Do not start before March 12, 2021.24 hr tolterodine tartrate 2 mg extended release oral capsule (20 sources)Cholinergic Muscarinic AntagonistStart: 08-26-2023 End: 71-83-0319maqx 1 capsule by mouth once dailytolterodine ER (DETROL LA) 2 mg 24 hr capsule Take 2 mg by mouth once daily. 08/26/2023 07/30/2024 Discontinued tretinoin 0.5 mg/ml topical cream (20 sources)RetinoidStart: 12-07-2021 End: 25-06-8546yynvqsmll (RETIN-A) 0.05 % cream Indications: Acne vulgaris Apply a pea size amount to affected area every other night for 2 weeks then increase to daily as tolerated 45 g 3 12/07/2021 06/10/2023 DiscontinuedComment on above: Apply a pea size amount to affected area every other night for 2 weeks then increase to daily as tolerated7 actuat umeclidinium 0.0625 mg/actuat dry powder inhaler (20 sources)AnticholinergicStart: 12-18-2022 End: 10-20-5962VTPZXDR ELLIPTA 62.5 mcg/actuation inhalerStart: 11-19-2022 End: 95-09-1349yzmc 1 puff(s) by inhalation once dailyumeclidinium (INCRUSE ELLIPTA) 62.5 mcg/actuation inhaler Inhale 1 Puff as instructed once daily. 04/19/2023 Discontinued (Discontinued by another Health Care Provider) Start: 05-15-2022 End: 46-84-0744oclu 1 puff(s) by inhalation once dailyINCRUSE ELLIPTA 62.5 mcg/actuation inhaler Inhale 1 Puff as instructed once daily. 05/15/20222022 DiscontinuedComment on above:Inhale 1 Puff as instructed once daily.Vitamin B Comp and C No.3 (B COMPLEX PLUS VITAMIN C) 22-32-05-5-300 mg cap (20 sources)Start: 08-11-2019 End: 45-44-5761Dchbnro B Comp and C No.3 (B COMPLEX PLUS VITAMIN C) 62-67-08-5-300 mg cap Take 1 tablet by mouth once daily. 30 capsule 3 08/11/2019 07/30/2024 DiscontinuedStart: 18-22-9979Oeqebws B Comp and C No.3 (B COMPLEX PLUS VITAMIN C) 79-76-90-5-300 mg cap Take 1 tablet by mouth once daily. 30 capsule 3 08/11/2019 ActiveComment on above:Take 1 tablet by mouth once daily. Problems Active Problems Problem ClassificationProblemDateDocumented DateEpisodic/ChronicAcute myocardial infarction (20 sources)Myocardial infarction; Translations: [Non-ST elevation (NSTEMI) myocardial infarction]Onset: 777806-07-4355AskjjuwYlaqzguyix disorders (1 source)Adjustment disorder with anxious mood; Translations: [Adjustment disorder with anxiety]90-11-6069WzzxzunUlvahmnn reactions (2 sources)Inflammatory dermatosis; Translations: [Dermatitis, unspecified] 66-82-5769BhgptjzwNdtsnxb disorders (20 sources)Anxiety; Translations: [Anxiety disorder, unspecified]Onset: 92-75-4084DruyoeoRixuso (20 sources)Asthma; Translations: [Unspecified asthma, uncomplicated]Onset: 256923-60-8289HcyzkmdJnykjernz and vision defects (2 sources)Eye / vision finding; Translations: [Unspecified visual disturbance] 84-19-7132XuweyueaQqzhnlm dysrhythmias (20 sources)Inappropriate sinus tachycardia; Translations: [Inappropriate sinus tachycardia]Onset: 305469-56-2656YlayhpyEpvshmb obstructive pulmonary disease and bronchiectasis (20 sources)Simple chronic bronchitis; Translations: [Simple chronic bronchitis] Onset: 56-03-0442ZubfbuaFrtdlzl obstructive pulmonary disease and bronchiectasis (6 sources)Bronchitis, not specified as acute or chronic; Translations: [Bronchitis]Onset: 02-02-2021 Resolved: 43-75-9250HlajdhcwYfsyggipsuvdk of surgical procedures or medical care (4 sources)Menopausal symptom; Translations: [Symptomatic postprocedural ovarian failure]49-85-5944CbggxjhBakimynixn heart failure; nonhypertensive (20 sources)Acute systolic heart failure; Translations: [Acute systolic (congestive) heart failure]Onset: 936598-13-1129FtmzudnSlsrilpx atherosclerosis and other heart disease (17 sources)Coronary arteriosclerosis; Translations: [Atherosclerotic heart disease of [place] coronary artery with unspecified angina pectoris]Onset: 867683-79-6177LafxxxmDaqmezuu atherosclerosis and other heart disease (2 sources)Presence of coronary angioplasty implant and graft; Translations: [Presence of coronary angioplastyimplant and graft]Onset: 49-17-1707Htbukdrm Disorders of lipid metabolism (20 sources)Mixed hyperlipidemia; Translations: [Mixed hyperlipidemia]Onset: 963111-11-0362RwnqqsaH Codes: Adverse effects of medical drugs (4 sources)Adverse effect of antineoplastic and immunosuppressive drugs, initial encounter; 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)]Onset: 41-24-1756UqxuwtwkDnvzohlrid disorders (20 sources)Gastroesophageal reflux disease; Translations: [Gastro-esophageal reflux disease without esophagitis]Onset: 02-23-2015 Resolved: 064292-15-2882VnfpcflExtxkwfia hypertension (2 sources)Essential (primary) hypertension; Translations: [Essential (primary) hypertension]Onset: 87-29-0841ZuyngyqOejawtbf; including migraine (5 sources)Daily headache; Translations: [Daily headache]88-57-8770Hbxtqgsu Headache; including migraine (4 sources)Headache; including migraine; Translations: [HEADACHE UNSPECIFIED] Onset: 72-77-3854Idisu valve disorders (3 sources)Mitral valve regurgitation; Translations: [Nonrheumatic mitral (valve) insufficiency]Onset: 578105-46-0101CkzvqreXtwaipo`s disease (20 sources)Hodgkin's disease, nodular sclerosis (clinical); Translations: [Nodular sclerosis Hodgkin lymphoma,unspecified site]Onset: 02-05-2012 Resolved: 72-81-0308JyqwxgsDcqxgdyxx (2 sources)Pneumonia and influenza; Translations: [Influenza due to unidentified influenza virus with unspecified type of pneumonia]29-56-3058Ntihlcgh Maintenance chemotherapy; radiotherapy (6 sources)Patient encounter status; Translations: [Encounter for antineoplastic immunotherapy]ChronicMenopausal disorders (20 sources)Premature menopause; Translations: [Asymptomatic premature menopause]Onset: 09-05-2016 Resolved: 236380-25-9789OaryaykXskuckrrwurnu mental health disorders (8 sources)Primary insomnia; Translations: [Primary insomnia]69-39-2342Tmombeb Mood disorders (20 sources)Mild major depression, single episode; Translations: [Major depressive disorder, single episode, mild]Onset: hronic Mycoses (1 source)Candidiasis of mouth; Translations: [Candidal stomatitis]04-25-2024 EpisodicNon-Hodgkin`s lymphoma (1 source)Personal history of other malignant neoplasms of lymphoid, hematopoietic and related tissues; Translations: [Personal history of other malignant neoplasms of lymphoid, hematopoietic and related tissues]Onset: 54-13-0295TlvchpoyOjpntjrinwt deficiencies (20 sources)Vitamin D deficiency; Translations: [Vitamin D deficiency, unspecified]Onset: 06-09-2015 Resolved: 647591-23-7590PqqvdzgYywqzwigejifyh (2 sources)Unspecified osteoarthritis, unspecified site; Translations: [Arthropathy, unspecified, site unspecified]83-01-8136OtswkazYamek aftercare (20 sources)Patient encounter status; Translations: [Encounter for palliative care]EpisodicOther aftercare (1 source)Other termite technician (current) drug therapy; Translations: [OTH 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 WORKER CURRENT DRUG THERAPY]Onset: 39-14-7331CnozxthtUbokd aftercare (2 sources)retirement (current) use of anticoagulants; Translations: [DISC PAD KNOCKOUT WORKER CURRNT USE ANTICOAGULANTS]Onset: 63-41-5236HyrsruqhCgzlu aftercare (17 sources)Under care of palliative care physician; Translations: [Encounter for palliative care]EpisodicOther and ill-defined heart disease (1 source)Heart disease; Translations: [Heart disease, unspecified]08-08-2024 ChronicOther and ill-defined heart disease (1 source)Heart disease, unspecified; Translations: [Heart disease]Onset: 86-76-1936EgaotdyMrxmq and unspecified benign neoplasm (1 source)Benign neoplasm of skin of lower limb; Translations: [Other benign neoplasm of skin of left lower limb, including hip]EpisodicOther circulatory disease (2 sources)Low blood pressure; Translations: [Hypotension, unspecified] 93-66-0318QkvxnoddNqzhl connective tissue disease (20 sources)Cramp; Translations: [Cramp and spasm]EpisodicOther connective tissue disease (1 source)Radial styloid tenosynovitis; Translations: [Radial styloid tenosynovitis [de [place]erv[place]]]74-29-7420IsdtrwpvCjwnt connective tissue disease (3 sources)Neuralgia; Translations: [Neuralgia and neuritis, unspecified] 92-71-7738XaodflgxRvpbc connective tissue disease (2 sources)Pain in left lower limb; Translations: [Pain in left leg]06-08-2024 EpisodicOther endocrine disorders (2 sources)Adrenal cortical hypofunction; Translations: [Unspecified adrenocortical insufficiency]91-93-9132QfqegfoRxzif endocrine disorders (4 sources)Disorder of endocrine system; Translations: [Endocrine disorder, unspecified]41-84-9908VfzgyktiUnfme female genital disorders (2 sources)Pain in female genitalia on intercourse; Translations: [Unspecified dyspareunia]33-95-4285IzrgcurXhpoa gastrointestinal disorders (6 sources)Dysphagia; Translations: [Dysphagia, unspecified]28-80-0946Emwcyfmg Other gastrointestinal disorders (1 source)Oropharyngeal dysphagia; Translations: [Dysphagia, oropharyngeal phase]18-36-9592XayretghKzcan inflammatory condition of skin (20 sources)Psoriasis vulgaris; Translations: [Psoriasis vulgaris]Onset: 335543-81-1778FkmxbomUcknc inflammatory condition of skin (20 sources)Psoriatic arthritis; Translations: [Arthropathic psoriasis, unspecified]Onset: 482121-88-5448GmfrheyZpqlf inflammatory condition of skin (20 sources)Psoriasis; Translations: [Psoriasis, unspecified]Onset: 08-23-2022 94-49-6897BrowpqrAlvjx lower respiratory disease (7 sources)Dyspnea on exertion; Translations: [Other forms of dyspnea]Episodic Other lower respiratory disease (7 sources)Chronic cough; Translations: [Chronic cough]EpisodicOther lower respiratory disease (1 source)Productive cough ; Translations: [Productive cough]EpisodicOther lower respiratory disease (1 source)Abnormal findings on diagnostic imaging of lung; Translations: [Other nonspecific abnormal finding of lung field]EpisodicOther lower respiratory disease (3 sources)Cough; Translations: [Acute cough]02-03-6723DwjxpmeiZaroi lower respiratory disease (2 sources)Wheezing; Translations: [Wheezing]28-90-0913VorejkzhLngha lower respiratory disease (1 source)Hypoxia; Translations: [Hypoxemia]02-97-2286OokclcgjCflib nervous system disorders (20 sources)Neuropathy caused by chemical substance; Translations: [Drug-induced polyneuropathy]Onset: 01-71-8195QfmrfvpXfwdg nervous system disorders (20 sources)Pain due to neoplastic disease; Translations: [Neoplasm related pain (acute) (chronic)]ChronicOther nervous system disorders (4 sources)Neoplasm related pain (acute) (chronic); Translations: [Cancer related pain]Onset: 46-12-5671FrdqdczGlltw nervous system disorders (4 sources)Drug-induced polyneuropathy; 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)]Onset: 02-02-6113CtrekifZatcr nervous system disorders (2 sources)Chronic nonmalignant pain; Translations: [Other chronic pain] 12-61-6132YxtqyilBbmrn nervous system disorders (16 sources)Chronic pain syndrome; Translations: [Chronic pain syndrome] 85-13-0282VcmyqahMjbxi nervous system disorders (20 sources)Neuropathy; Translations: [Polyneuropathy, unspecified]Onset: 664525-62-6917EayhypgMhkof nutritional; endocrine; and metabolic disorders (20 sources)Body mass index 30+ - obesity; Translations: [Body mass index (BMI) 33.0-33.9, adult]Onset: 201275-24-4089XjggbwdIuwbc screening for suspected conditions (not mental disorders or infectious disease) (20 sources)Other specified abnormal findings of blood chemistry; Translations: [Other abnormal blood chemistry]Onset: 03-22-2013 Resolved: 045390-63-5060PgitlgcmEupvo skin disorders (4 sources)Pain; Translations: [Disorder of the skin and subcutaneous tissue, unspecified]EpisodicOther skin disorders (1 source)Acne vulgaris; Translations: [Acne vulgaris]EpisodicOther skin disorders (2 sources)Folliculitis; Translations: [Follicular disorder, unspecified] 13-40-5791AvonoshjSefin upper respiratory disease (4 sources)Chronic rhinitis; Translations: [Chronic rhinitis]99-29-1988Qcrzpir Other upper respiratory disease (1 source)Other allergic rhinitis; Translations: [Non-seasonal allergic rhinitis due to other allergic trigger]Onset: 97-71-2322LvlfqbpDuteh upper respiratory disease (1 source)Congestion of nasal sinus; Translations: [Nasal congestion]Episodic Other upper respiratory disease (1 source)Abnormal voice; Translations: [Unspecified voice and resonance disorder]64-19-6786XzpbxndxRsbyj upper respiratory infections (5 sources)Recurrent sinusitis; Translations: [Chronic sinusitis, unspecified] 46-98-5315AspdgvdEwakqxwwb; thrombophlebitis and thromboembolism (2 sources)H/O: Deep vein thrombosis; Translations: [Personal history of other venous thrombosis and embolism]Onset: 388688-71-6507UukgieorMnptuwdzf (except that caused by tuberculosis or sexually transmitted disease) (20 sources)Pneumocystosis pneumonia; Translations: [Pneumocystosis]Onset: 06-03-2014 Resolved: 673725-61-8243EkleijocGibrhjhvu heart disease (20 sources)Pulmonary hypertension; Translations: [Pulmonary hypertension, unspecified]Onset: 833116-71-3294OtgbzsbDxgubbfpj heart disease (20 sources)Pulmonary embolism; Translations: [Other pulmonary embolism without acute cor pulmonale]Onset: 05-27-2012 Resolved: 484842-00-2238WxgbiwjsTntwgrnb codes; unclassified (20 sources)History of autologous bone marrow transplant; Translations: [Bone marrow transplant status]Onset: 43-60-9018OlmeeqgSocjvjaa codes; unclassified (1 source)Obstructive sleep apnea syndrome; Translations: [Obstructive sleep apnea (adult) (pediatric)]77-34-1830EtnjkdoMwcdjloj codes; unclassified (1 source)Bone marrow transplant status; Translations: [Autologous bone marrow transplantation status (HCC)]Onset: 90-10-7321QftpqqvRqxtfvbe codes; unclassified (1 source)Personal history of other medical treatment; Translations: [History of immunotherapy]Onset: 22-24-1162GiruenkkStivhysz codes; unclassified (1 source)Personal history of antineoplastic chemotherapy; Translations: [Personal history of antineoplastic chemotherapy]Onset: 35-78-5453Ofvtxskc Residual codes; unclassified (1 source)Personal history of irradiation; Translations: [Personal history of irradiation]Onset: 93-26-5596CkdpqylrHxhgxxgfivb failure; insufficiency; arrest (adult) (3 sources)Chronic hypoxemic respiratory failure; Translations: [Chronic respiratory failure with hypoxia]90-12-2487RglovwgIqkvsqckn and history of mental health and substance abuse codes (1 source)Personal history of nicotine dependence; Translations: [PERSONAL HISTORY OF NICOTINE DEPEND]Onset: 52-85-9964JncfwqqjAnpcnpc disorders (20 sources)Acquired hypothyroidism; Translations: [Hypothyroidism, unspecified] Onset: 556359-51-5182AmkjmefAyvztkwszskm (20 sources)SUMMARYOnset: 854995-55-5373Ewfgumrumnjz (1 source)NO SHOWUnclassified (1 source)Lab test negative for COVID-19 virus; Translations: [Lab test negative for COVID-19 virus]Onset: 39-46-9914Uxwtyphxhfri (1 source)Cough with sputum; Translations: [Cough with sputum]Onset: 12-18-2024 Unclassified (1 source)Subacute cough; Translations: [Subacute cough]Onset: 05-04-2024 Unclassified (1 source)Inappropriate sinus tachycardia, so stated; Translations: [Inappropriate sinus tachycardia, so stated]Onset: 24-88-2502Yumsncu tract infections (1 source)Acute cystitis without hematuriaEpisodic Past or Other Problems Problem ClassificationProblemDateDocumented DateEpisodic/ChronicBenign neoplasm of uterus (20 sources)Uterine leiomyoma; Translations: [Leiomyoma of uterus, unspecified] Onset: 646563-61-6460UxaghcriBybdha of cervix (20 sources)Low grade squamous intraepithelial lesion on cervical Papanicolaou smear; Translations: [Low grade squamous intraepithelial lesion on cytologic smear of cervix (LGSIL)]Onset: 10-24-2014 Resolved: 671331-01-7941DjrbodinWtrhbps dysrhythmias (20 sources)Tachycardia; Translations: [Tachycardia, unspecified]Onset: 03-16-2013 Resolved: 710970-70-6981PhrxoqlsStbhgckl mellitus with complications (20 sources)Secondary diabetes mellitus; 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]Onset: 10-28-2014 Resolved: 519419-40-4094JgukbdqDfkep and electrolyte disorders (20 sources)Disorder of fluid AND/OR electrolyte; Translations: [Other disorders of electrolyte and fluid balance, not elsewhere classified]Onset: 02-16-2013 Resolved: 847181-77-2028ZhewvayuKiaieabasgsfp symptoms and ill-defined conditions (20 sources)Dysuria; Translations: [Dysuria]Onset: 03-04-2014 Resolved: 31-36-7647VaztdmjcJDT infection (20 sources)T-lymphocyte immunodeficiency; 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, unspecified]Onset: 03-11-2014 Resolved: 409244-30-7069LuulwvkSfipkdysnboik and screening for infectious disease (1 source)Contact with and (suspected) exposure to other viral communicable diseasesOnset: 02-02-2021 Resolved: 88-14-0150KobwqdupGaic disease due to external agents (20 sources)Radiation pneumonitis; Translations: [Acute pulmonary manifestations due to radiation]Onset: 05-11-2014 Resolved: 093032-40-6865DplumlkvMiqyfgf and fatigue (20 sources)Cancer-related fatigue; Translations: [Neoplastic (malignant) related fatigue]Onset: 03-24-2015 Resolved: 73-83-7401WeepziauCluspnxbti disorders (20 sources)Postmenopausal state; Translations: [Hormone replacement therapy] Onset: 08-18-2014 Resolved: 039167-27-2018QqrievyjQeqpqttzi disorders (20 sources)Menorrhagia; Translations: [Excessive and frequent menstruation with regular cycle]Onset: 03-15-2017 Resolved: 288252-16-5524SnjuabsBurr disorders (20 sources)Mood disordersOnset: 08-26-2023 Resolved: Nausea and vomiting (20 sources)Nausea; Translations: [Nausea]Onset: 03-17-2013 Resolved: 89-03-4921AofefmtpSteuyzkenol chest pain (20 sources)Tight chest; Translations: [Other chest pain]Onset: 03-16-2013 Resolved: 80-10-4013CvinpbfdBqcuv aftercare (20 sources)Drug therapy finding; Translations: [retirement (current) use of opiate analgesic]Onset: 07-21-9548RqrcnxofPghgc aftercare (2 sources)long term care social worker (current) use of opiate analgesic; Translations: [Opioid use agreement exists]Onset: 64-44-4268LcgovokxRdmxf aftercare (1 source)Encounter for palliative care; Translations: [Encounter for palliative care]Onset: 40-81-2002DpcvlmhxHefue aftercare (20 sources)Post-discharge follow-up; Translations: [Encounter for follow-up examination after completed treatment for conditions other than malignant neoplasm]Onset: 03-16-2013 Resolved: 402803-71-1668RpjlbelySmzyw aftercare (20 sources)Long-term current use of benzodiazepine; Translations: [Other fpc (current) drug therapy]Onset: 813718-41-5247NhwjtzvlQkzqu aftercare (20 sources)Administrative statuses; Translations: [Encounter for palliative care]Onset: 193534-55-4994IwqnzwyhIpbjt connective tissue disease (1 source)Cramp and spasm; Translations: [Muscle cramps]Onset: 10-26-2021 EpisodicOther connective tissue disease (20 sources)Pain in left arm; Translations: [Pain in left arm]Onset: 07-06-2013 Resolved: 392359-94-9802VyfslytxStcyq connective tissue disease (20 sources)Other symptoms and signs involving the musculoskeletal system; Translations: [Other musculoskeletalsymptoms referable to limbs]Onset: 07-22-2014 Resolved: 423695-16-5944OhogawfwQvebj connective tissue disease (20 sources)Muscle pain; Translations: [Myalgia, unspecified site]Onset: 05-06-2015 Resolved: 449973-77-5154DxbybnyiWxlls female genital disorders (20 sources)Vaginal bleeding; Translations: [Abnormal uterine and vaginal bleeding, unspecified] Resolved: 108025-23-9977HrdfqzsHiuvf female genital disorders (20 sources)Dyspareunia; Translations: [Dyspareunia] Resolved: 956777-49-6941ToszezhFhays gastrointestinal disorders (20 sources)Diarrhea; Translations: [Diarrhea, unspecified]Onset: 03-31-2013 Resolved: 727314-77-5830EmfepynmXopbv gastrointestinal disorders (1 source)Dysphagia, unspecified; Translations: [Dysphagia, unspecified type] Onset: 99-46-0116PhchvhqyHylbd hematologic conditions (20 sources)ESR raised; Translations: [Elevated erythrocyte sedimentation rate] Onset: 07-06-2013 Resolved: 513172-59-7726OijzksidDmdfy inflammatory condition of skin (3 sources)Erythematous condition, unspecified; Translations: [ERYTHEMATOUS CONDITION UNSPECIFIED]Onset: 72-27-3899LcysombrEqkjx liver diseases (20 sources)Finding of creatine kinase level; Translations: [Abnormal levels of other serum enzymes]Onset: 05-06-2015 Resolved: 740714-40-0637QzgipfjsNjgxt liver diseases (20 sources)Enzyme level - finding; Translations: [Abnormal levels of other serum enzymes]Onset: 05-06-2015 Resolved: 750776-54-3702LcgviljkQwikk liver diseases (19 sources)Increased creatine kinase level; Translations: [Abnormal levels of other serum enzymes]Onset: 05-06-2015 Resolved: 518244-51-4235HwowthfdGtgyy lower respiratory disease (20 sources)Restrictive lung disease; Translations: [Other disorders of lung] Onset: 584569-31-7346QarjiijtGclzs lower respiratory disease (2 sources)Other disorders of lung; Translations: [Restrictive lung disease] Onset: 06-95-0007PjnkzbnzXwiwa lower respiratory disease (1 source)Shortness of breath; Translations: [SOB (shortness of breath)]Onset: 91-15-3147PkosfndlWipjc lower respiratory disease (1 source)Personal history of pneumonia (recurrent); Translations: [H/O: pneumonia]Onset: 51-40-9587PltdovxzNmapt lower respiratory disease (1 source)Other nonspecific abnormal finding of lung field; Translations: [Pulmonary infiltrates]Onset: 68-02-6145XtnhtattOyzqg lower respiratory disease (2 sources)Hemoptysis; Translations: [Hemoptysis]Onset: 17-76-9144StaxhsaoTufii nervous system disorders (20 sources)Radiation injury of peripheral nerve; Translations: [Radiation- induced polyneuropathy]Onset: 10-18-2020 Resolved: 310957-65-2939LdyofdtGoifk nervous system disorders (20 sources)Peripheral nerve disease ; Translations: [Polyneuropathy, unspecified]Onset: 03-16-2013 Resolved: 589436-66-5179FqxkhdeJbvwg nervous system disorders (20 sources)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; Translations: [Radiation- induced polyneuropathy]Onset: 10-18-2020 Resolved: 234176-87-0487EpoonudVbdgo nervous system disorders (20 sources)Postoperative pain ; Translations: [Other acute postprocedural pain] Onset: 10-27-2012 Resolved: 645206-64-3258GbdoiqldYqvsi nervous system disorders (20 sources)Abnormal gait; Translations: [Unspecified abnormalities of gait and mobility]Onset: 07-22-2014 Resolved: 194784-38-9189NqpueqncHvayh non-traumatic joint disorders (20 sources)Arthralgia of the ankle and/or foot; Translations: [Pain in unspecified ankle and joints of unspecified foot]Onset: 09-27-2014 Resolved: 181549-08-8217QflrymmjAsvlo non-traumatic joint disorders (20 sources)Pain in right knee; Translations: [Pain in joint, lower leg]Onset: 05-06-2015 Resolved: 560799-12-9798QihcdzdhVuayb non-traumatic joint disorders (20 sources)Multiple joint pain; Translations: [Pain in unspecified joint]Onset: 05-06-2015 Resolved: 441136-27-9773IekwvjckQjvro screening for suspected conditions (not mental disorders or infectious disease) (20 sources)Imaging result abnormal; Translations: [Abnormal findings on diagnostic imaging of other specified body structures]Onset: 07-06-2013 Resolved: 306883-48-1264ElufglqKwjuz skin disorders (20 sources)Hidradenitis suppurativa; Translations: [Hidradenitis suppurativa] Onset: 01-17-2016 Resolved: 59-79-0580CzokajdtPrrvo skin disorders (20 sources)Hyperpigmentation of skin; Translations: [Disorder of pigmentation, unspecified]Onset: 03-31-2013 Resolved: 783441-89-8636UnooygakGthsj upper respiratory disease (20 sources)Hoarse; Translations: [Dysphonia]Onset: 005507-24-7732Osummtyd Other upper respiratory infections (20 sources)Posterior rhinorrhea; Translations: [Postnasal drip]Onset: 02-23-2015 Resolved: 740478-46-9554RlkuwfdmTkxzrl media and related conditions (1 source)Otitis media, unspecified, bilateralOnset: 02-02-2021 Resolved: 38-85-4644MiqumfcfWqfvjbrq; pneumothorax; pulmonary collapse (12 sources)Pleural effusion; Translations: [Pleural effusion, not elsewhere classified]Onset: 282268-52-5395NfgtptrkWjcbpltpk by other medications and drugs (20 sources)Oral mucositis (ulcerative) due to antineoplastic therapy; Translations: [Mucositis (ulcerative) due to antineoplastic therapy]Onset: 03-24-2013 Resolved: 416472-49-1046PmhpqqvlUwakewvx codes; unclassified (20 sources)Insomnia; Translations: [Insomnia, unspecified]Onset: 03-16-2013 Resolved: 423406-29-7274GwcrdrhbItdtqxas codes; unclassified (20 sources)Abnormal cytology findings; Translations: [ASCUS favor dysplasia] Onset: 09-18-2014 Resolved: 742971-50-2753RrxkhyfvSixvjqovlwb failure; insufficiency; arrest (adult) (20 sources)Acute hypoxemic respiratory failure; Translations: [Acute respiratory failure with hypoxia]Onset: 05-11-2014 Resolved: 690044-47-1628PdboppxkPvvndfad transmitted infections (not HIV or hepatitis) (20 sources)Human papilloma virus deoxyribonucleic acid test positive, high risk on vaginal specimen; Translations: [Vaginal high risk human papillomavirus (HPV) DNA test positive]Onset: 968476-63-9734RtqxqmhrUgxw and subcutaneous tissue infections (1 source)Cellulitis of left lower limb; Translations: [CELLULITIS OF LEFT LOWER LIMB]Onset: 33-14-9577HpknbtvgAaovxxjauvk; intervertebral disc disorders; other back problems (20 sources)Backache; Translations: [Dorsalgia, unspecified]Onset: 07-06-2013 Resolved: 937156-39-3614HtxlxyzaYvpukjo and strains (20 sources)Sprain of left ankle; Translations: [Sprain of unspecified ligament of left ankle, initial encounter]Onset: 06-29-2014 Resolved: 966992-06-3061HztyxixeJtnttsfpatro (20 sources)DISPOSITION AND FOLLOW-UPOnset: 10-27-2012 Resolved: 927147-49-1700Gogrcgclzabo (20 sources)Drug therapy finding; Translations: [DVT prophylaxis]Onset: 03-16-2013 Resolved: 425277-03-0029Zgvngaejimcf (20 sources)Reflux; Translations: [Reflux]Onset: 03-23-2013 Resolved: 762929-06-8634Yukfmyhskkwu (1 source)Inappropriate sinus tachycardia, so stated; Translations: [Inappropriate sinus tachycardia, so stated]Onset: 32-57-5550Uxfhf infection (20 sources)Disease caused by 2019-nCoV; Translations: [COVID-19]Onset: 097721-38-0010Koxmorxg Results Test NameValueInterpretationReference ZxmqnQqkvshtx54lp 01-97-382777fcRhkbmcTrumbull Regional Medical Center36Pt notified.[facility]36That was by mistake. I sent the full 30 day script.[facility]36Sarah, can you please have them add the left heart cath to the [facility]. Please reach out to Ruth Ann so she knows. Looks like she's not scheduled yet. Thank [facility] HamiltonOrders Onlyon 90-06-4073Mykiar [id number] Celso Weller 1980 F Date Provider Department Center 12/30/2024 Tad5-IFRAH HOGAN Family History Problem Relation Age of Onset Heart attack Maternal Grandfather Heart attack Paternal Grandfather Family Status - Relation Status Age at Mother Alive Father Alive Maternal Grandfather Paternal Grandfather DeceasedNormalUniHighland District HospitalPatient Messageon 70-67-2749Qnjapfa [id number] Celso Weller 1980 F Date Provider Department Center 12/29/2024 [id number], ALI PAIN Medical Pavi Family History Problem Relation Age of Onset Heart attack Maternal Grandfather Heart attack Paternal Grandfather Family Status - Relation Status Age at Mother Alive Father Alive Maternal Grandfather Paternal Grandfather DeceasedNormalUniversuniversity hospitals beach[facility]36on [id number] looked compensated on exam. Her breathing felt better since she was started on abx last week. We need to discuss and review her recent pulmonary visit recommendations. I cut her lisinopril in half to 2.5mg daily. Maybe we should consider her for midodrine?[facility] Visit on 67-19-8790Lxewwj-up [id number] Celso Weller 1980 F Date Provider Department Center 12/23/2024 166-SUSANNE HATFIELD Family History Problem Relation Age of Onset Heart attack Maternal Grandfather Heart attack Paternal Grandfather Family Status - Relation Status Age at Mother Alive Father Alive Maternal Grandfather Paternal Grandfather Level of Service:11849 NM OFFICE/OUTPATIENT ESTABLISHED [facility] 40 MIN Reason for Visit and Comments: Follow-up [827725] - Patient is here today per her PCP request to talk about medications. Patient state she just hasn't felt right since her heart attach. Patient states she has been having vision changes blurred vision, lights look like strobe lights and flashes of light. PCP told her it she doesn't need to see neuro, that it was probably due to the corlanor which her pcp lower the dose. Patient stopped lasix due to cramps everywhere. Blood pressure are very low, which causes lightheaded, vision closing in. Congestive Heart Failure [127] NSTEMI [Other] Coronary Artery Disease [187] Pulmonary Hypertension [818] Shortness of Breath [884534] - SOB/BAEZ over the last couple of weeks, which she attributes to having a cold/sinus infection Palpitations [896897] - Palpitations/racing heart Dizziness [880429] - Dizziness/light headed with standing Fatigue [46] - increasedNormalUniversWadsworth-Rittman HospitalOffice Visiton 16-39-0563Wgbxsw-up [id number] Celso Weller 1980 F Date Provider Department Center 12/22/2024 [id number], ALI MP PAIN Medical Pavi Family History Problem Relation Age of Onset Heart attack Maternal Grandfather Heart attack Paternal Grandfather Family Status - Relation Status Age at Mother Alive Father Alive Maternal Grandfather Paternal Grandfather Level of Service:29385 NM OFFICE/OUTPATIENT NEW MODERATE MDM 45 MINUTES Reason for Visit and Comments: Pain [136] - Chronic pain due to CA treatmentNormalUniversity of Citizens Medical CenterXR CHEST 2V FRONTAL/LATon 12-19-2024* * *Final Report* * * DATE OF EXAM: Dec 18 2024 12:39PM NRX [id number] - XR CHEST 2V FRONTAL/LAT / PROCEDURE REASON: Cough with sputum * * * * Physician Interpretation * * * * RESULT: FRONTAL AND LATERAL CHEST RADIOGRAPHS HISTORY: Cough with sputum . TECHNIQUE: Frontal and lateral views of the chest were obtained. COMPARISON: PET/CT 11/30/2024 and radiograph 05/29/2024 RESULT: Cardiomediastinal silhouette is normal. Radiation change within the left lung. No new consolidation. No pneumothorax or pleural effusion. IMPRESSION: No acute cardiopulmonary process. Transcribe Date/Time: Dec 19 2024 10:08A Dictated by: JEWELL VUONG MD This examination was interpreted and the report reviewed and electronically signed by: JEWELL VUONG MD on Dec 19 2024 10:10AM EST Thank you for allowing us to participate in the care of your patient. Should there be any questions regarding this interpretation, please call [phone]. If you are unable to reach us at the number above, please feel free to contact [facility] eRadiology at [phone]. [id number]^AGFA_IDC^SI^ACNCCFRadiology, Radiologist, - 12/19/2024 * * *Final Report* * * DATE OF EXAM: Dec 18 2024 12:39PM NRX [id number] - XR CHEST 2V FRONTAL/LAT / PROCEDURE REASON: Cough with sputum * * * * Physician Interpretation * * * * RESULT: FRONTAL AND LATERAL CHEST RADIOGRAPHS HISTORY: Cough with sputum . TECHNIQUE: Frontal and lateral views of the chest were obtained. COMPARISON: PET/CT 11/30/2024 and radiograph 05/29/2024 RESULT: Cardiomediastinal silhouette is normal. Radiation change within the left lung. No new consolidation. No pneumothorax or pleural effusion. IMPRESSION: No acute cardiopulmonary process. Transcribe Date/Time: Dec 19 2024 10:08A Dictated by: JEWELL VUONG MD This examination was interpreted and the report reviewed and electronically signed by: JEWELL VUONG MD on Dec 19 2024 10:10AM EST Thank you for allowing us to participate in the care of your patient. Should there be any questions regarding this interpretation, please call [phone]. If you are unable to reach us at the number above, please feel free to contact [facility] eRadiology at [phone]. [id number]^AGFA_IDC^SI^ACN NOMS HealthcareXR CHEST 2V FRONTAL/LATOrdered By: Radiologist Radiology on 19-26-0037NTXCOzarks Community Hospital Work Phone: [phone] [phone] ([facility]) called stating pt's BP is 88/50 Dr. Vito Gongora would like to give pt IV fluid would like guidance from Dr. Hdz; please return Dr. Padron's phone call (cell) .[facility]XR CHEST 2V FRONTAL/LATon 54-50-9726Lhjnbmphr Study observation (narrative)[facility]36on [phone] call from patient, patient states she has been having visual disturbances and seen her PCP. Patient states her dose of Ivabradine was recently increased. Patient states she thinks its the medication due to symptoms starting after the increase. Patient was unable to come in for an appointment due to other appointments. I scheduled patient to see Sheela Hatfield on 12/23/2024. Please advise.[facility] NorthCCF CBC W AUTO DIFF BLDon 96-33-6780Rurzztbkw/100 WBC (Bld)0.5 %NOMSt. Luke'S HospitalCCF BASOPHILS # BLD AUTO 0.05NINFNOMS Mercy Health Allen HospitalCCF DIFFERENTIAL METHOD BLDAutoNOMS HealthcareCCF EOSINOPHIL # BLD AUTO0.26NINFNOMS HealthcareCCF LYMPHOCYTES # BLD AUTO2.28NOProgress West Hospital MONOCYTES # BLD AUTO1.00HighNINFAlvin J. [facility]iteman Cancer [facility] NEUTROPHILS # BLD AUTO6.04[facility] NRBC # BLD AUTO<0.01NINFAlvin J. Siteman Cancer Center NRBC/100 WBC BLD-RTO0.0/100 WBCAlvin J. Siteman Cancer Center PLATELET # BLD [id number] J. Siteman Cancer Center PMV BLD AUTO9.2 fL9.0 - 12.7 fLAlvin J. Siteman Cancer Center WBC # BLD AUTO 9.67NOResearch Medical Center-Brookside CampusEosinophils/100 WBC (Bld)2.7 %[facility] HospitalErythrocyte distribution width (RBC) [Ratio]12.8 %11.5 - 15.0 %[facility] HospitalHematocrit (Bld) [Volume fraction]41.5 %36.0 - 46.0 %[facility] HospitalHemoglobin (Bld) [Mass/Vol]13.8 g/dL11.5 - 15.5 g/dLSelect Specialty Hospital GRANULOCYTES # BLD AUTO 0.04NIHenry County Medical Center GRANULOCYTES/LEUK NFR BLD AUTO0.4 %[facility] Interpretation and review of laboratory resultsAbnormVA hospital Lymphocytes/100 WBC (Bld)23.6 %Kindred HospitalH (RBC) [Entitic mass]31.7 pg 26.0 - 34.0 pgKindred HospitalHC (RBC) [Mass/Vol]33.3 g/dL30.5 - 36.0 g/dLKindred HospitalV (RBC) [Entitic vol]95.4 fL80.0 - 100.0 fLOzarks Community Hospital Monocytes/100 WBC (Bld)10.3 %[facility] HospitalNeutrophils/100 WBC (Bld)62.5 %[facility] HospitalRBC (Bld) [#/Vol]4.35 10*6/uL3.90 - 5.20 m/uLOzarks Community HospitalSpecimen Type: BLOOD SPECIMEN Ordering Facility: [facility] Address: [address] [place], [place] [id number] Original Ordering Provider: ELLYN BAER HealthcareOffice Visiton [id number]-up [id number] Celso Weller 1980 F Date Provider Department Center 11/09/2024 TEMO TERRY [facility] Family History Problem Relation Age of Onset Heart attack Maternal Grandfather Heart attack Paternal Grandfather Family Status - Relation Status Age at Mother Alive Father Alive Maternal Grandfather Paternal Grandfather Level of Service:08857 NM OFFICE/OUTPATIENT ESTABLISHED MOD MDM 30 [id number] have patient schedule appointment erich with [facility]Refpr[facility] hospitaln [id number] Celso Weller 1980 Date Provider Department [place] 11/05/2024 TONY SMITH [facility] INT MED Comprehensiv Family History Problem Relation Age of Onset Heart attack Maternal Grandfather Heart attack Paternal Grandfather Family Status - Relation Status Age at Mother Alive Father Alive Maternal Grandfather Paternal Grandfather Reason for Visit and Comments: Med Refill [[id number]][facility] [id number] Celso Weller 1980 Date Provider Department [place] 11/05/2024 TONY SMITH [facility] Family History Problem Relation Age of Onset Heart attack Maternal Grandfather Heart attack Paternal Grandfather Family Status - Relation Status Age at Mother Alive Father Alive Maternal Grandfather Paternal Grandfather Reason for Visit and Comments: Med Refill [[id number]][place] [address] Patient not under my care. [facility] to [facility] Refillon [id number] Celso Weller 1980 Date Provider Department [place] 10/31/2024 124TONY ESCUDERO [facility] INT MED Comprehensiv Family History Problem Relation Age of Onset Heart attack Maternal Grandfather Heart attack Paternal Grandfather Family Status - Relation Status Age at Mother Alive Father Alive Maternal Grandfather Paternal Grandfather Reason for Visit and Comments: Med Refill [[id number]][place] [address] MD Sera Langford MA Please have her reduce spironolactone to 12.5 mg every other day due to elevated potassium. Spoke to patient advised patient of her lab results per Dr. Hdz's request, reduce spironolactone. Patient verbalized understanding and agreed with plan of careNormalUniversuniversity hospitals beachwood medical center of Citizens Medical CenterMD Sera Pro MA Please have her reduce spironolactone to 12.5 mg every other day due to elevated potassium. Spoke to patient advised patient of her high potassium per Dr. Hdz's request. Patient verbalized understanding and agreed with the plan of care. NormalCleveland Clinic Avon HospitalOrders Onlyon 03-02-7312Qdprru Only [id number] Celso Weller 1980 F Date Provider Department [place] 10/27/2024 [id number], HISTORICAL CARD Estefania Cano Family History Problem Relation Age of Onset Heart attack Maternal Grandfather Heart attack Paternal Grandfather Family Status - Relation Status Age at Mother Alive Father Alive Maternal Grandfather Paternal Grandfather DeceasedNormalUniversWadsworth-Rittman HospitalALL T3 FREEon 41-43-1300Feuc T3 [Mass/Vol]3.31 pg/mL2.18 - 3.98 pg/mLNOMS HealthcareKAISER HOSPITAL THYROID STIM HORMONEon 25-11-7389LES Qn0.537 m[IU]/LNOMS HealthcareKAISER HOSPITAL THYROXINE (T4)on 82-71-3314F2 [Mass/Vol]10.2 ug/dL4.80 - 13.90 ug/dLNOResearch Medical Center-Brookside CampusNo Panel Informationon 63-02-0206STSZRLIBFHREQ HealthcareTB GLUCOSE BLOODon 57-35-3084Ypobivl [Mass/Vol]100 mg/dL74 - 106 mg/dLOzarks Community Hospital IGP,APTIMA HPV,AGE GDLNon 50-19-0768KUL GDLN ACOG TESTINGNote.[facility] Healthcare Comment on above:TESTS RESULT FLAG UNITS REF RANGE LAB Clinician Provided Cytology Information Source.............Cervix;Endocervix No. of containers..01 ThinPrep Vial Age Armond BASILIO Jackie... FLAG LEGEND: L-Low Normal,H-High Normal,LL-Alert Low,HH-Alert High <-Panic Low,>-Panic High,A-Abnormal,AA-Critical Abnormal Performed at: 01 =[address] [address] Tahmina Vinson MD, HPV APTIMANegativeNegativeNOMS HealthcareComment on above:This nucleic acid amplification test detects fourteen high- risk HPV types (16,18,31,33,35,39,45,51,52,56,58,59,66,68) without differentiation. Performed at: =[address] [id number] American History Teacher: Tahmina Vinson MD, Phone: [phone] Performed at: [address] [id number] American History Teacher: Tahmina Vinson MD, Phone: [phone] IGP, APTIMA HPV, RFX 16/18,45Note.NOMS HealthcareComment on above:TESTS RESULT FLAG UNITS REF RANGE LAB DIAGNOSIS: 02 NEGATIVE FOR INTRAEPITHELIAL LESION OR MALIGNANCY. Specimen adequacy: 02 Satisfactory for evaluation. Endocervical and/or squamous metaplastic cells (endocervical component) are present. Performed by: 02 Keven Chmaorro, Computational Geneticist ([facility]) . 02 Note: Note 02 The Pap [...] High,A-Abnormal,AA-Critical Abnormal Performed at: [address] [facility] [address] [address] Tahmina Vinson MD, BRUSH-SPATULA CERVIX ENDOCERVIX CLINISYNCNOMS [facility] W Auto Differential panel (Bld)on 08-03-2024 Basophils (Bld) [#/Vol]NINFCleveland ClinicDifferential cell count method Nom (Bld)AutoCleveland ClinicEosinophils (Bld) [#/Vol]0.59 10*3/uLHighNINFCleselect medical specialty hospital - cincinnati north ClinicImmature granulocytes (Bld) [#/Vol]NINFCleveland ClinicImmature granulocytes/100 WBC (Bld)0.3 %[facility], Edwin ShawLymphocytes (Bld) [#/Vol]1.6 10*3/uLDry Run ClinicMonocytes (Bld) [#/Vol]0.6 10*3/uLNIFayette County Memorial Hospital Neutrophils (Bld) [#/Vol]4.52 10*3/Doctors HospitalNucleated RBC (Bld) [#/Vol] NINFCleveland ClinicNucleated RBC/100 WBC (Bld) [Ratio]0 %/100 WBCDry Run ClinicPlatelet mean volume (Bld) [Entitic vol]9.3 fL9.0 - 12.7 fLCleveland ClinicPlatelets (Bld) [#/Vol]278 10*3/Doctors HospitalWBC (Bld) [#/Vol]7.35 10*3/[facility]ima Memorial HospitalF CBC W AUTO DIFF BLDon 82-12-4090KTO BASOPHILS # BLD AUTO<0.03NIHouston County Community Hospital DIFFERENTIAL METHOD BLDAutoNOMProgress West Hospital EOSINOPHIL # BLD AUTO0.59HighNIHouston County Community Hospital LYMPHOCYTES # BLD AUTO1.6 [facility] MONOCYTES # BLD AUTO0.6NIHouston County Community Hospital NEUTROPHILS # BLD AUTO4.52[facility] NRBC # BLD AUTO<0.01NIHouston County Community Hospital NRBC/100 WBC BLD-RTO0/100 WBCAlvin J. Siteman Cancer Center PLATELET # BLD [id number] J. Siteman Cancer Center PMV BLD AUTO9.3 fL9.0 - 12.7 fLAlvin J. Siteman Cancer Center WBC # BLD AUTO 7.35NODoctors Hospital of Springfield GRANULOCYTES # BLD AUTO<0.03NIHenry County Medical Center GRANULOCYTES/LEUK NFR BLD AUTO0.3 %[facility] HospitalSpecimen Type: BLOOD SPECIMEN [facility]ing [facility] Address: [address] [place] [address] Original Ordering Provider: [facility]UPERTO OCNDONRARITAN [facility] SPECIMEN VALIDITY, URINE on 39-13-3268YSN CREATININE,AYDVK360.6 mg/dL20.0 - 300.0 mg/dLAlvin J. Siteman Cancer Center NITRITES,URINE<50NINF - 500 mg/LNOMS [facility] HospitalCCF OXIDANTS,URINE<38NINF - 200 mg/LNOMS HealthcareF PH,URINE5.64.5 - 8.0NOProgress West Hospital SPEC GRAVITY,UR 1.0241.003 - 1.035[facility] SPECIMEN VALIDITY QUALITYSpecimen quality results within acceptable limitsRanken Jordan Pediatric Specialty Hospitalprehensive metabolic 2000 panelOrdered By: Saran Johnson on 51-05-8684Pousidi [Mass/Vol]4.5 g/dL3.9 - 4.9 g/dLDry Run ClinicALP [Catalytic activity/Vol]67 U/L34 - 123 U/LCleveland ClinicALT [Catalytic activity/Vol]45 U/LHigh7 - 38 U/LCleveland ClinicAnion gap [Moles/Vol]11 mmol/L8 - 15 mmol/LCleveland ClinicAST [Catalytic activity/Vol]40 U/LHigh13 - 35 U/LCleveland ClinicBilirubin [Mass/Vol]0.4 mg/dL0.2 - 1.3 mg/dL [facility] ClinicCalcium [Mass/Vol]9.6 mg/dL8.5 - 10.2 mg/dLDry Run Clinic Chloride [Moles/Vol]103 mmol/L98 - 107 mmol/LCleveland ClinicCO2 [Moles/Vol]27 mmol/L22 - 30 mmol/LCleveland ClinicCreatinine [Mass/Vol]0.62 mg/dL0.58 - 0.96 mg/dLDry Run ClinicGFR/1.73 sq M.predicted among non-blacks MDRD (S/P/Bld) [Vol rate/Area]114 mL/min/{1.73_m2}- PINFCleveland ClinicComment on above: Estimated Glomerular Filtration Rate (eGFR) is calculated using the 2020 CKD-EPI creatinine equation. This equation utilizes serum creatinine, sex, and age as parameters. The creatinine assay has traceable calibration to isotope dilution- mass spectrometry. Refer to KDIGO guidelines for clinical interpretation. In patients with unstable renal function, e.g. those with acute kidney injury, the eGFRmay not accurately reflect actual GFR.Glucose [Mass/Vol]149 mg/rAXxfa87 - 99 mg/dLSelect Medical Cleveland Clinic Rehabilitation Hospital, Edwin ShawComment on above:The [place] Diabetes Association (ADA) provides guidance for cutoff values for fasting glucose andrandom glucose. The ADA defines fasting as no caloric intake for at least 8 hours. Fasting plasma gl ucose results between 100 to 125 mg/dL indicate [...] Standards of Medical Care in Diabetes 2016, [place] [employer]. Diabetes Care. 2016.39(Suppl 1). Interpretation and review of laboratory resultsAbnormalCleveland ClinicPotassium [Moles/Vol]4.5 mmol/L3.7 - 5.1 mmol/LClevelnovant health ballantyne medical center ClinicProtein [Mass/Vol]6.7 g/dL 6.3 - 8.0 g/dLDry Run ClinicSodium [Moles/Vol]141 mmol/L136 - 144 mmol/L [facility], [facility] ShawUrea nitrogen [Mass/Vol]10 mg/dL7 - 21 mg/dLSouthern Ohio Medical CenterESR Westergren method (Bld) [Velocity]on 16-47-6211TOS (Bld) [Velocity]2 mm/hClcleveland clinic akron general ClinicInterpretation and review of laboratory results NormalUC HealthLaboratory - Hematology and Cell countson 45-08-9470Fhwrhzhnk/100 WBC (Bld)0.3 %[facility] HospitalEosinophils/100 WBC (Bld)8 %[facility] Community HospitalErythrocyte distribution width (RBC) [Ratio]12.9 %11.5 - 15.0 % [facility] Community HospitalHematocrit (Bld) [Volume fraction]43.6 %36.0 - 46.0 %[facility] Community HospitalHemoglobin (Bld) [Mass/Vol]14.3 g/dL11.5 - 15.5 g/dLOzarks Community Hospital Lymphocytes/100 WBC (Bld)21.8 %[facility] Community HospitalMCH (RBC) [Entitic mass]30.8 pg 26.0 - 34.0 pgNOCox MonettHC (RBC) [Mass/Vol]32.8 g/dL30.5 - 36.0 g/dLKindred HospitalV (RBC) [Entitic vol]94 fL80.0 - 100.0 fLNOResearch Medical Center-Brookside Campus Monocytes/100 WBC (Bld)8.2 %[facility] HospitalNeutrophils/100 WBC (Bld)61.4 %[facility] HospitalRBC (Bld) [#/Vol]4.64 10*6/uL3.90 - 5.20 m/uLNOMS HealthcareNo Panel Informationon 59-05-4243Bbbfyoxe Type: URINE SPECIMEN [facility] Address: [address] [id number] Original Ordering Provider: IRENE PETTIT HealthcareInterpretation and review of laboratory resultsAbnormalAudrain Medical Center HealthcareQUANT TOX PANELon 12-00-9629NWGHHHXFDW UR-MCNC<10NINF - 10 ng/mLNOMS HealthcareComment on above:64-Bxu-7-carboxy-tetrahydrocannabinol (pcxrx-4-hurbxgy-THC) is a metabolite of kzeos-9-whxkpyxedhqsfytpmiov (THC). This test does not differentiate between delta-8 or delta-9 carboxy-THC.CCF 6MAM UR-MCNC<5NINF - 5 ng/mLNOMS HealthcareComment on above:6-Monoacetylmorphine is a metabolite of heroin.CCF AMPHET UR CFM-MCNC<25NINF - 25 ng/mLNOMS HealthcareComment on above: Methylphenidate does not contain or metabolize to amphetamine.CCF BUPRENORPHINE UR-MCNC<5NINF - 5 ng/mLNOMS HealthcareComment on above:Patients using transdermal formulations of buprenorphine may yield undetectable buprenorphine and norbuprenorphine urine concentrations.CCF BZE UR CFM-MCNC<25NINF - 25 ng/mL [facility] HealthcareComment on above:Benzoylecgonine is a metabolite of cocaine.CCF CODEINE UR CFM-MCNC<25NINF - 25 ng/mLNOMS HealthcareCCF EDDP UR CFM-MCNC<25NINF - 25 ng/mLNOMS HealthcareComment on above: 1-Hgxokcgjel-5,3-frefvwmz-6,3-diphenylpyrrolidine (EDDP) is a metabolite of methadone.CCF FENTANYL UR CFM-MCNC<1NINF - 1 ng/mLNOMS HealthcareCCF HYDROCODONE UR CFM-MCNC<25NINF - 25 ng/mLNOMS HealthcareCCF HYDROMORPHONE UR CFM-MCNC<25 NINF - 25 ng/mLNOMS HealthcareCCF METHADONE UR CFM-MCNC<25NINF - 25 ng/mLNOMS HealthcareCCF METHAMPHET UR CFM-MCNC<25NINF - 25 ng/mLNOMS HealthcareCCF MORPHINE UR CFM-MCNC<25NINF - 25 ng/mLNOMS HealthcareCCF NORBUPRENORPHINE UR-MCNC<10NINF - 10 ng/mLNOMS HealthcareComment on above:Norbuprenorphine is a metabolite of buprenorphine. Patients using transdermal formulations of bupren orphine may yield undetectable buprenorphine and norbuprenorphine urine concentrations.CCF NORFENTANYL UR CFM-MCNC<1NINF - 1 ng/mLNOMS HealthcareComment on above:Norfentanyl is a metabolite of fentanyl.CCF NORTRAMADOL UR-MCNC<25NINF - 25 ng/mLNOMS HealthcareComment on above:O-desmethyltramadol is a metabolite of tramadol.CCF OXYCODONE UR CFM-ZNUM1779 ng/mLHighNINF - 25 ng/mLNOMS HealthcareComment on above:Presence of oxycodone is consistent with use of an oxycodone-containing drug. Oxycodone is metabolized to noroxycodone and oxymorphone.CCF OXYMORPHONE UR CFM-LSAD8731 ng/mLHighNINF - 25 ng/mLNOMS HealthcareComment on above:Presence of oxymorphone is consistent with use of an oxymorphone-containing drug or by oxycodone metabolism. Oxymorphone is metabolized to noroxymorphone.CCF TRAMADOL UR CFM-MCNC<25NINF - 25 ng/mLNOMS HealthcareInterpretation and review of laboratory resultsAbnormalNOMS Healthcare MDA, UR<25NINF - 25 ng/mLNOMS HealthcareComment on above:3,4 Methylenedioxyamphetamine is also known as MDA.MDEA, UR<25NINF - 25 ng/mLNOMS HealthcareComment on above:3,4 Riyjeyqfyrofdy-X-gycvcphxepsbmjgh is also known as MDEA.MDMA, UR<25NINF - 25 ng/mLNOMS HealthcareComment on above:3,4- Methylenedioxymethamphetamine is also known as MDMA.NORHYDROCODONE, UR<25NINF - 25 ng/mLNOMS HealthcareComment on above:Norhydrocodone is a metabolite of hydrocodone.NOROXYCODONE, HD5752 ng/mLHighNINF - 25 ng/mLNOMS HealthcareComment on above:Noroxycodone is a metabolite of oxycodone. Presence of noroxycodone is consistent with use of a oxycodone-containing drug. Noroxycodone is metabolized to noroxymorphone.NOROXYMORPHONE, UR381 ng/mLHighNINF - 25 ng/mLNOMS Healthcare Comment on above:Noroxymorphone is a metabolite of oxymorphone and oxycodone and a minor metabolite of naltrexone and naloxone. Presence of noroxymorphone is consistent with use of an oxymorphone-containing drug or adrug that metabolizes to oxymorphone or noroxymorphone.NOTE, UR TOXICOLOGY PANELNOMS HealthcareComment on above:For medical purposes only. Not valid for legal or forensic purposes. This test was developed, and its performance characteristics determined by the [facility] Department of Pathology and Laboratory Medicine. It has not been cleared or approved by the FDA. The [facility] Department of Pathology and Laboratory Medicine is regulated under CLIA as qualified to perform high-complexity testing. This test is used for clinical purposes. It should not be regarded as investigational or for research. PCP UR CFM-MCNC<10NINF - 10 ng/mLNOMS HealthcareComment on above:Phencyclidine is also known as PCP.PHENTERMINE, UR<25NINF - 25 ng/mLNOMS HealthcareOffice Visiton 72-12-4392Ovkrhq-up [id number] Celso Weller 1980 F Date Provider Department Center 07/20/2024 Leo-TEMO HDZ DONITA Cano Family History Problem Relation Age of Onset Heart attack Maternal Grandfather Heart attack Paternal Grandfather Family Status - Relation Status Age at Mother Alive Father Alive Maternal Grandfather Paternal Grandfather Level of Service:27592 NM OFFICE/OUTPATIENT ESTABLISHED MOD MDM 30 [place]Orders Onlyon 17-14-1786Dwdops [id number] Celso Weller 1980 F Date Provider Department Center 07/17/2024 [id number], [facility] CARD Estefania Hos No family history on fileNormalUniversity of Citizens Medical Center30on 43-51-869156Xyc patient is Moderately Stable - Low risk of patient condition declining or worsening The patient's goals for the shift include discharge The clinical goals for the shift include stable vitals, safetyNormalUniversity of Citizens Medical Center30The patient is Moderately Stable - Low risk [...] are monitored and maintained or improved Outcome: ProgressingNormalUniversWadsworth-Rittman HospitalBASIC METABOLIC PANELon 63-01-9622Ofgyq gap [Moles/Vol]10 mmol/LNormal7-20UnPremier Health Miami Valley Hospital NorthComment on above:Performed By: #### LAB15 #### [facility] ([facility]) [address] [place], [place] [address]Zgbpcwt [Mass/Vol]9.3 mg/dLNormal8.6-10.3UnPremier Health Miami Valley Hospital NorthComment on above:Performed By: #### LAB15 #### [facility] ([facility]) [address] [place], [place] [address]Unnshdbd [Moles/Vol]101 mmol/FFbgtwp23-281WkkdlwdblhPremier Health Miami Valley Hospital NorthComment on above:Performed By: #### LAB15 #### [facility] ([facility]) [address] [place], [place] [address]SY7 [Moles/Vol]31 mmol/LYcjaez28-69ExzqvicwhdPremier Health Miami Valley Hospital NorthComment on above:Performed By: #### LAB15 #### [facility] ([facility]) [address] [place], [place] [address]Ksbtpxtete [Mass/Vol]0.60 mg/dLNormal0.60-1.20UnPremier Health Miami Valley Hospital NorthComment on above:Performed By: #### LAB15 #### [facility] ([facility]) [address] [place] [address]UXIMGIQBQX FILTRATION RATE ML/MIN/1.73 SQ M.OTWGCOIEW400.6 mL/min/1.73m*2Normal>60.0UnPremier Health Miami Valley Hospital NorthComment on above: Result Comment: [facility]???s estimated glomerular filtration rate (eGFR) will [...] potential consequences that do not disproportionately affect anyone group of individuals.Performed By: #### LAB15 #### [facility] ([facility]) [address] [place] [address]Oqniptn [Mass/Vol]158 mg/zQMlqp68-777OjvjkokxenPremier Health Miami Valley Hospital NorthComment on above:Performed By: #### LAB15 #### [facility] ([facility]) [address] [place] [address]Dgoeyofzj [Moles/Vol]4.3 mmol/LNormal3.5-5.1UnPremier Health Miami Valley Hospital NorthComment on above:Performed By: #### LAB15 #### [facility] ([facility]) [address] [place] [address]Dkzkcb [Moles/Vol]138 mmol/MAhlnan243-268SvqhgjicuyPremier Health Miami Valley Hospital NorthComment on above:Performed By: #### LAB15 #### [facility] ([facility]) [address] [place] [address]Alpi nitrogen [Mass/Vol]10 mg/dLNormal7-25UnPremier Health Miami Valley Hospital NorthComment on above:Performed By: #### LAB15 #### [facility] ([facility]) [address] [place], [place] [address]DFLA NITROGEN/CREATININE (MASS RATIO) IN SER/PLAS16.7Normal [facility] HospitalComment on above:Performed By: #### LAB15 #### [facility] ([facility]) [address] [place] [address]UWEqy 35-99-5250Ohwtvrgkwsw distribution width (RBC) [Ratio]12.7 %Tybdwu42.5-15.0UnPremier Health Miami Valley Hospital NorthComment on above:Performed By: #### [id number] #### [facility] ([facility]) [address] [place] [address]HQBHOEKUBWG MEAN CORPUSCULAR HEMOGLOBIN CONCENTRATION (G/DL) BY GZFPAVCZN22.9 g/bSXuuutq73.0-35.0UnPremier Health Miami Valley Hospital NorthComment on above:Performed By: #### [id number] #### [facility] ([facility]) [address] [place] [address]Atjodhfsdf (Bld) [Volume fraction]43.5 %Bmvctv42.0-45.0 [facility] HospitalComment on above:Performed By: #### [id number] #### [facility] ([facility]) [address] [place] [address]Yqshtpwrxh (Bld) [Mass/Vol]14.3 g/aIXbkqqu51.0-15.0UnPremier Health Miami Valley Hospital NorthComment on above:Performed By: #### [id number] #### [facility] ([facility]) [address] [place] [address]KBC (RBC) [Entitic mass]31.0 etIdmzqc63.0-33.0UnPremier Health Miami Valley Hospital NorthComment on above:Performed By: #### [id number] #### [facility] ([facility]) [address] [place] [address]ELH (RBC) [Entitic vol]94.2 yLGrwzjf51.0-98.0UnPremier Health Miami Valley Hospital NorthComment on above:Performed By: #### [id number] #### [facility] ([facility]) [address] [place] [address]IKWVIJXQW (10*3/UL) IN BLOOD AUTOMATED VWZPX756 10*3/uLNormal 150-400UnPremier Health Miami Valley Hospital NorthComment on above:Performed By: #### [id number] #### [facility] ([facility]) [address] [place] [address]RED (Bld) [#/Vol]4.62 10*6/uLNormal3.80-5.00UnPremier Health Miami Valley Hospital NorthComment on above:Performed By: #### [id number] #### [facility] ([facility]) [address] [facility] [place] [address]BQO (Bld) [#/Vol]14.54 10*3/uLHigh4.00-10.60UnPremier Health Miami Valley Hospital NorthComment on above:Performed By: #### [id number] #### [facility] ([facility]) [address] [facility] CENTERMarian[facility] [place], [place] [address]CLM CHEST W IV CONTRASTon 81-03-6400ALB CHEST W IV CONTRASTCTA CHEST W IV CONTRAST 07/09/2024 2:27 PM [...] low as reasonably achievable. Electronically signed: Jhonny Banda.AlejandroUnPremier Health Miami Valley Hospital North30 on 13-00-772983Roq patient is Moderately Stable - Low risk [...] from fall injury Outcome: Progressing Flowsheets (Taken 07/08/2024804 by Sweetie Alexander, RN) Free from fall injury: Assess patient frequently for physical needs Identify cognitive and physical deficits and behaviors that affect risk of falls [place] fall precautions as indicated by assessment Problem: Discharge Planning Goal: Discharge to home or other facility with appropriate resources Outcome: Progressing Flowsheets (Taken 07/08/2024804 by Sweetie Alexander, RN) Discharge to home or other facility with appropriate resources: Identify barriers to discharge with patient and caregiver Arrange for needed discharge resources and transportation as appropriate Identify discharge learning needs (meds, wound care, etc) Problem: Chronic Conditions and Co-morbidities Goal: Patient's chronic conditions and co-morbidity symptoms are monitored and maintained or improved Outcome: Progressing Flowsheets (Taken 07/08/2024804 by Sweetie Alexander, RN) Care Plan - Patient's Chronic Conditions and Co-Morbidity Symptoms are Monitored and Maintained or Improved: Monitor and assess patient's chronic conditions and comorbid symptoms for stability, deterioration, or improvement Collaborate with multidisciplinary team to address chronic and comorbid conditions and prevent exacerbation or deteriorationNormalUniversity of [facility]30Problem: Pain - Adult Goal: Verbalizes/displays adequate comfort level or baseline comfort level Outcome: Progressing Flowsheets (Taken 07/08/2024 0814) Verbalizes/displays adequate comfort level or baseline comfort [...] maintained or improved Outcome: Progressing Flowsheets (Taken 07/08/2024 0805) Care Plan - Patient's Chronic Conditions and [...] not make progress toward the following goals. NormalUnPremier Health Miami Valley Hospital NorthANTI-XA (HEPARIN LEVEL)on 07-08-2024 HEPARIN UNFRACTIONATED (U/ML) IN PPP BY CHROMOGENIC METHOD0.11 IU/mLInvalid Interpretation Code0.3-0.7UnPremier Health Miami Valley Hospital NorthComment on above: Order Comment: Check anti-Xa level every 6 hours while on heparin infusion, or per protocol.Result Comment: Rivaroxaban and Apixaban will interfere with the anti Xa assay used to monitor UFH and LMWH.Performed By: #### [id number] #### [facility] (AKER) [address] [place], [place] [address]DMGDFGE UNFRACTIONATED (U/ML) IN PPP BY CHROMOGENIC METHOD0.65 IU/mLNormal0.3-0.7UnPremier Health Miami Valley Hospital NorthComment on above:Order Comment: Check anti-Xa level every 6 hours while on heparin infusion, or per protocol.Result Comment: Rivaroxaban and Apixaban will interfere with the anti Xa assay used to monitor UFH and LMWH.Performed By: #### [id number] #### [facility] (BEAKER) [address] [place], [place] [address]AGTKYEV UNFRACTIONATED (U/ML) IN PPP BY CHROMOGENIC METHOD>1.00 Critically high0.3-0.7UnPremier Health Miami Valley Hospital NorthComment on above: Performed By: #### [id number] #### [facility] ([facility]) [address] [place] [address]KIKrj 40-78-5745Gyoxjosgdjx distribution width (RBC) [Ratio]13.3 %Rqufyf72.5-15.0UnPremier Health Miami Valley Hospital NorthComment on above:Performed By: #### [id number] #### [facility] ([facility]) [address] [place] [address]CTRJTNYJRLD MEAN CORPUSCULAR HEMOGLOBIN CONCENTRATION (G/DL) BY ZEPGLUJTZ59.0 g/zEJzrszb49.0-35.0UnPremier Health Miami Valley Hospital NorthComment on above:Performed By: #### [id number] #### [facility] ([facility]) [address] [place] [address]Qgnbyzixfj (Bld) [Volume fraction]41.2 %Riiodq53.0-45.0 [facility] HospitalComment on above:Performed By: #### [id number] #### [facility] ([facility]) [address] [place] [address]Bffbiylycc (Bld) [Mass/Vol]13.6 g/yAKhabro34.0-15.0UnPremier Health Miami Valley Hospital NorthComment on above:Performed By: #### [id number] #### [facility] ([facility]) [address] [place] [address]TND (RBC) [Entitic mass]31.4 upCwhxsu43.0-33.0UnPremier Health Miami Valley Hospital NorthComment on above:Performed By: #### [id number] #### [facility] ([facility]) [address] [place] [address]FVU (RBC) [Entitic vol]95.2 pXGfhdsk06.0-98.0UnPremier Health Miami Valley Hospital NorthComment on above:Performed By: #### [id number] #### [facility] ([facility]) [address] [place] [address]AYAKLSGCG (10*3/UL) IN BLOOD AUTOMATED [id number] 10*3/uLNormal 150-400UnPremier Health Miami Valley Hospital NorthComment on above:Performed By: #### [id number] #### [facility] ([facility]) [address] [place] [address]AJU (Bld) [#/Vol]4.33 10*6/uLNormal3.80-5.00UnPremier Health Miami Valley Hospital NorthComment on above:Performed By: #### [id number] #### [facility] ([facility]) [address] [place] [address]JZJ (Bld) [#/Vol]14.26 10*3/uLHigh4.00-10.60UnPrem[facility] Hospital NorthComment on above:Performed By: #### [id number] #### [facility] ([facility]) [address] [place] [address]BNQPKBY FUNCTION PANELon 57-17-8891Diwdixt [Mass/Vol]3.8 g/dL Normal3.5-5.7UnPremier Health Miami Valley Hospital NorthComment on above:Performed By: #### [id number] #### [facility] ([facility]) [address] [place] [address]JJX [Catalytic activity/Vol]49 U/YRjfdek84-001JoyhbaekfcPremier Health Miami Valley Hospital NorthComment on above:Performed By: #### [id number] #### [facility] ([facility]) [address] [place] [address]TXJ [Catalytic activity/Vol]27 U/LNormal7-52UnPremier Health Miami Valley Hospital NorthComment on above:Performed By: #### [id number] #### [facility] ([facility]) [address] [place], [place] [address]LRA [Catalytic activity/Vol]27 U/DDrdjyx51-20OjaollqzxmPremier Health Miami Valley Hospital NorthComment on above:Performed By: #### [id number] #### [facility] ([facility]) [address] [place], [place] [address]Upgzhiepy [Mass/Vol]0.8 mg/dLNormal0.3-1.0UnPremier Health Miami Valley Hospital NorthComment on above:Performed By: #### [id number] #### [facility] (BEAKER) [address] [place] [address]Acvhxywjt [Mass/Vol]0.2 mg/dLNormal0-0.2UnPremier Health Miami Valley Hospital NorthComment on above:Performed By: #### [id number] #### [facility] (BEAKER) [address] [place] [address]Agiqyyl [Mass/Vol]6.3 g/dLNormal6.0-8.3UnPremier Health [facility] Hospital NorthComment on above:Performed By: #### [id number] #### [facility] (BEAKER) [address] [place] [address]MJ BRAIN W AND WO CONTRASTon 34-46-1313QC BRAIN W AND WO CONTRASTMR BRAIN W AND WO CONTRAST CLINICAL HISTORY: [...] motion artifact. Electronically signed: LORIN BRANDT MD. 8Invalid Interpretation CodeUnPremier Health Miami Valley Hospital NorthMR HEAD ANGIO WO IV CONTRASTon [id number] HEAD ANGIO WO IV CONTRASTMR HEAD ANGIO WO IV CONTRAST INDICATION: New [...] head. Electronically signed: LORIN BRANDT MD. Not VldtdInvalid Interpretation [facility]30on [id number] patient is Moderately Stable - Low risk [...] and behaviors that affect risk of falls [place] fall precautions as indicated by assessment Educate [...] are exacerbated and prevent overall improvement and dischargeNormalUniversWadsworth-Rittman Hospital30The patient is Moderately Stable - Low risk of patient condition declining or worsening The patient's goals for the shift include comfort The clinical goals for the shift include hemodynamically stable Problem: Pain - Adult Goal: Verbalizes/displays adequate comfort level or baseline comfort level Outcome: Progressing Problem: Safety - Adult Goal: Free from fall injury Outcome: Progressing Flowsheets (Taken 07/07/202425) Free from fall injury: Assess patient frequently for physical needs Identify cognitive and physical deficits and behaviors that affect risk of falls Problem: Discharge Planning Goal: Discharge to home or other facility with appropriate resources Outcome: Progressing Problem: Chronic Conditions and Co-morbidities Goal: Patient's chronic conditions and co-morbidity symptoms are monitored and maintained or improved Outcome: ProgressingNormalUniversity of [facility]30The patient is Moderately Stable - Low risk [...] and behaviors that affect risk of falls [place] fall precautions as indicated by assessment Educate [...] maintained or improved Outcome: Progressing Flowsheets (Taken 07/07/2024 0036) Care Plan - Patient's Chronic Conditions and Co-Morbidity Symptoms are Monitored and Maintained or Improved: Monitor and assess patient's chronic conditions and comorbid symptoms for stability, deterioration, or improvement Collaborate with multidisciplinary team to address chronic and comorbid conditions and prevent exacerbation or deterioration Update acute care plan with appropriate goals if chronic or comorbid symptoms are exacerbated and prevent overall improvement and dischargeNormalUniversWadsworth-Rittman HospitalANTI-XA (HEPARIN LEVEL)on 13-35-0614KFNIIWS UNFRACTIONATED (U/ML) IN PPP BY CHROMOGENIC METHOD<0.10Invalid Interpretation Code0.3-0.7 [facility] HospitalComment on above:Result Comment: Rivaroxaban and Apixaban will interfere with the anti Xa assay used to monitor UFH and LMWH. Performed By: #### [id number] #### [facility] (AKER) [address] [place], [place] [address]HWPBye 02-39-9721WGBKYYAGY PARTIAL THROMBOPLASTIN TIME IN PPP BY COAGULATION ASSAY26.2 VlxbbcsMmkebb30.0-35.0UnPrem[facility] North Comment on above:Order Comment: Baseline aPTT before initiating heparin infusion.Result Comment: Clinical significance of the APTT is questionable in the presence of heparin.Performed By: #### [id number] #### [facility] (BEAKER) [address] [place], [place] [address]BWMFA METABOLIC PANELon 20-80-2598Jyudo gap [Moles/Vol]8 mmol/L Normal7-20UnPremier Health Miami Valley Hospital NorthComment on above:Performed By: #### [id number] #### [facility] (BEAKER) [address] [place], [place] [address]Mmjmsco [Mass/Vol]8.8 mg/dLNormal8.6-10.3UnPremier Health [facility] Hospital NorthComment on above:Performed By: #### [id number] #### [facility] ([facility]) [address] [place] [address]Cghsoebh [Moles/Vol]107 mmol/ZVvdchm16-906OqcuaqdlhiPremier Health Miami Valley Hospital NorthComment on above:Performed By: #### [id number] #### [facility] ([facility]) [address] [place] [address]TL3 [Moles/Vol]31 mmol/GDzjxev67-05NzbdvtpzcoPremier Health Miami Valley Hospital NorthComment on above:Performed By: #### [id number] #### [facility] ([facility]) [address] [place] [address]Hfdojbtegw [Mass/Vol]0.62 mg/dLNormal0.60-1.20UnPremier Health [facility] Hospital NorthComment on above:Performed By: #### [id number] #### [facility] ([facility]) [address] [place] [address]NLROIZXXUF FILTRATION RATE ML/MIN/1.73 SQ M.HMPGNKTPO012.7 mL/min/1.73m*2Normal>60.0UnPremier Health Miami Valley Hospital NorthComment on above: Result Comment: [facility]???s estimated glomerular filtration rate (eGFR) will [...] potential consequences that do not disproportionately affect anyone group of individuals.Performed By: #### [id number] #### [facility] ([facility]) [address] [place] [address]Jgavmxu [Mass/Vol]113 mg/hIFdoa69-795LvjbvucrzhPremier Health Miami Valley Hospital NorthComment on above:Performed By: #### [id number] #### [facility] ([facility]) [address] [place] [address]Xrojxmlqe [Moles/Vol]4.6 mmol/LNormal3.5-5.1UnPrem[facility] Health [facility] Hospital NorthComment on above:Performed By: #### [id number] #### [facility] ([facility]) [address] [place] [address]Qltvmp [Moles/Vol]141 mmol/BPuubyr320-914UoqxitdblrPremier Health Miami Valley Hospital NorthComment on above:Performed By: #### [id number] #### [facility] ([facility]) [address] [place] [address]Jwst nitrogen [Mass/Vol]10 mg/dLNormal7-25UnPremier Health [facility] Hospital NorthComment on above:Performed By: #### [id number] #### [facility] ([facility]) [address] [place] [address]OZEF NITROGEN/CREATININE (MASS RATIO) IN SER/PLAS16.1Normal [facility] HospitalComment on above:Performed By: #### [id number] #### [facility] ([facility]) [address] [place] [address]BJQxp 88-69-6944Xujyxmwyccz distribution width (RBC) [Ratio]13.5 %Acuayz88.5-15.0UnPremier Health Miami Valley Hospital NorthComment on above:Performed By: #### [id number] #### [facility] ([facility]) [address] [place] [address]PHBZMUWMYWD MEAN CORPUSCULAR HEMOGLOBIN CONCENTRATION (G/DL) BY YBXIKQYNE24.8 g/zIVksdfz89.0-35.0UnPremier Health Miami [facility] Hospital NorthComment on above:Performed By: #### [id number] #### [facility] ([facility]) [address] [place] [address]Ouyipcemkx (Bld) [Volume fraction]41.5 %Helmvd05.0-45.0 [facility] HospitalComment on above:Performed By: #### [id number] #### [facility] ([facility]) [address] [place] [address]Rcjdhkekje (Bld) [Mass/Vol]13.6 g/oEMoakom30.0-15.0UnPremier Health Miami [facility] Hospital NorthComment on above:Performed By: #### [id number] #### [facility] ([facility]) [address] [place] [address]ITE (RBC) [Entitic mass]31.3 ipWrrmgk81.0-33.0UnPremier Health Miami Valley Hospital NorthComment on above:Performed By: #### [id number] #### [facility] ([facility]) [address] [place] [address]MKI (RBC) [Entitic vol]95.6 kLCowtco71.0-98.0UnPremier Health [facility] Hospital NorthComment on above:Performed By: #### [id number] #### [facility] ([facility]) [address] [place] [address]TWGFJCILO (10*3/UL) IN BLOOD AUTOMATED [id number] 10*3/uLNormal 150-400UnPremier Health Miami Valley Hospital NorthComment on above:Performed By: #### [id number] #### [facility] ([facility]) [address] [place] [address]OQZ (Bld) [#/Vol]4.34 10*6/uLNormal3.80-5.00UnPremier Health [facility] Hospital NorthComment on above:Performed By: #### [id number] #### [facility] ([facility]) [address] [place] [place] [address]CYM (Bld) [#/Vol]15.08 10*3/uLHigh4.00-10.60UnPrem[facility] Health [facility] Hospital NorthComment on above:Performed By: #### [id number] #### [facility] ([facility]) [address] [place] [address]MAJWICGud 91-83-8728LOZJILB Attestation signed by Jeff Reeder MD at 07/09/2024 2:52 PM I reviewed the salient portions of the patient history. I have seen and examined the patient during rounds with the medical student/resident/fellow. I repeated the osorio components of the exam. Agree with the noted assessment and plan. Jeff Reeder MD [facility] Pulmonary interventional and Critical Care Medicine. Pulmonology Consult Patient : Celso Weller : [...] rare Stenotrophomonas maltophilia. Most recent PFT From [facility] records 12/2023 Most recent Echo 07/06 TTE [...] CO 7.48 L/min based on RHC at [facility] 02/2024 multifactorial in the setting of history [...] asa and Plavix in the mean time -retirement will need to be on 2 blood thinners -Follow up with pulmonology as out patient Devonte Tracy MD Pulmonary & Critical Care Medicine [facility] 07/07/2024 Past History/Allergies?Social History: History reviewed. No pertinent past medical history. Allergies Allergen Reactions Sulfa (Sulfonamide Antibiotics) Rash Social History Socioeconomic History Marital status: Single Spouse name: Not on file Number of children: Not on file Years of (more content not included)...NormalUnPremier Health Miami Valley Hospital North CT CHEST WO IV CONTRASTon [id number] CHEST WO IV CONTRASTCLINICAL HISTORY: Hemoptysis. History of Hodgkin's lymphoma. COMPARISON: [...] this report. Electronically signed: Vin Oglesby MD. 4Invalid Interpretation CodeUnPremier Health Miami Valley Hospital NorthCT HEAD WO IV CONTRASTon [id number] HEAD WO IV CONTRASTClinical information: Headache Comparison: None available. Technique: Routine [...] this report. Electronically signed: Carlo Freeman. 9 nullNormalUniversity of Citizens Medical CenterPLATELET COUNTon 07-07-2024 PLATELETS (10*3/UL) IN BLOOD AUTOMATED [id number] 10*3/gTCibght572-764OlndydjbhsPremier Health Miami Valley Hospital NorthComment on above:Performed By: #### [id number] #### [facility] (BEAKER) [address] [place], [place] [address]jz 68-72-054735Swi patient is Moderately Stable - Low risk of patient condition declining or worsening The patient's goals for the shift include comfort The clinical goals for the shift include VSSNormalUniversity of Citizens Medical CenterANTI-XA (HEPARIN LEVEL)on 21-84-7567GZGFFCN UNFRACTIONATED (U/ML) IN PPP BY CHROMOGENIC METHOD0.14 IU/mLInvalid Interpretation Code0.3-0.7UnPremier Health [facility] Hospital NorthComment on above:Order Comment: Check anti-Xa level every 6 hours while on heparin infusion, or per protocol.Result Comment: Rivaroxaban and Apixaban will interfere with the anti Xa assay used to monitor UFH and LMWH. Performed By: #### [id number] #### [facility] (BEAKER) [address] [place], [place] [address]OAFNic 16-94-2934TVZQCBJBG PARTIAL THROMBOPLASTIN TIME IN PPP BY COAGULATION ASSAY27.9 DvykutvDblccr18.0-35.0UnPrem[facility] Comment on above:Order Comment: Baseline aPTT before initiating heparin infusion.Result Comment: Clinical significance of the APTT is questionable in the presence of heparin.Performed By: #### [id number] #### [facility] ([facility]) [address] [place], [place] [address]F-CTWG NATRIURETIC PEPTIDEon 85-40-4382Utdngthargs peptide B (Bld) [Mass/Vol]441 pg/mLHigh0-100UnPremier Health [facility] Hospital NorthComment on above:Performed By: #### [id number] ####[facility] ([facility])[address] [place], [place] [address]GXUST METABOLIC PANELon 91-89-3794Aepjc gap [Moles/Vol]10 mmol/LNormal7-20UnPremier Health [facility] Hospital NorthComment on above:Performed By: #### [id number] #### [facility] ([facility]) [address] [place], [place] [address]Zqrgkyz [Mass/Vol]9.0 mg/dLNormal8.6-10.3UnPrem[facility] Health [facility] Hospital NorthComment on above:Performed By: #### [id number] #### [facility] ([facility]) [address] [place], [place] [address]Jjykzzge [Moles/Vol]106 mmol/MVtfkoh83-306BnjacalnrxPremier Health Miami Valley Hospital NorthComment on above:Performed By: #### [id number] #### [facility] ([facility]) [address] [place], [place] [address]XW0 [Moles/Vol]28 mmol/RWbnuiy08-76DbmkkozogcPremier Health Miami Valley Hospital NorthComment on above:Performed By: #### [id number] #### [facility] ([facility]) [address] [place], [place] [address]Gfcwvielzc [Mass/Vol]0.62 mg/dLNormal0.60-1.20UnPremier Health [facility] Hospital NorthComment on above:Performed By: #### [id number] #### [facility] ([facility]) [address] [place], [place] [address]UJZLDPYUXG FILTRATION RATE ML/MIN/1.73 SQ M.FIBJTAYIB241.7 mL/min/1.73m*2Normal>60.0UnPremier Health Miami Valley Hospital NorthComment on above: Result Comment: [facility]???s estimated glomerular filtration rate (eGFR) will [...] potential consequences that do not disproportionately affect anyone group of individuals.Performed By: #### [id number] #### [facility] ([facility]) [address] [place] [address]Vnvoqxh [Mass/Vol]150 mg/eEGpeq17-906FfxmewkosaPremier Health Miami Valley Hospital NorthComment on above:Performed By: #### [id number] #### [facility] ([facility]) [address] [place] [address]Ugodpxchh [Moles/Vol]4.4 mmol/LNormal3.5-5.1UnPrem[facility] Hospital NorthComment on above:Performed By: #### [id number] #### [facility] ([facility]) [address] [place], [place] [address]Hijpmx [Moles/Vol]140 mmol/UGphana554-396NfxcaosfdvPremier Health Miami Valley Hospital NorthComment on above:Performed By: #### [id number] #### [facility] ([facility]) [address] [place], [place] [address]Ffod nitrogen [Mass/Vol]7 mg/dLNormal7-25UnPremier Health [facility] Hospital NorthComment on above:Performed By: #### [id number] #### [facility] ([facility]) [address] [place], [place] [address]XLRY NITROGEN/CREATININE (MASS RATIO) IN SER/PLAS11.3Normal [facility] HospitalComment on above:Performed By: #### [id number] #### [facility] ([facility]) [address] [place], [place] [address]JVZvv 84-01-1132Lmszwskwype distribution width (RBC) [Ratio]13.2 %Vscgid71.5-15.0UnPremier Health Miami [facility] Hospital NorthComment on above:Performed By: #### [id number] #### [facility] ([facility]) [address] [place] [address]CYBWDZILCIA MEAN CORPUSCULAR HEMOGLOBIN CONCENTRATION (G/DL) BY JWDOTQPGZ93.1 g/bOMcofpz42.0-35.0UnPremier Health [facility] Hospital NorthComment on above:Performed By: #### [id number] #### [facility] ([facility]) [address] [place] [address]Nbgpgkmlxz (Bld) [Volume fraction]43.8 %Eyhchh63.0-45.0 [facility] HospitalComment on above:Performed By: #### [id number] #### [facility] ([facility]) [address] [place], [place] [address]Ulgehzswhg (Bld) [Mass/Vol]14.5 g/hSLansze83.0-15.0UnPremier Health [facility] Hospital NorthComment on above:Performed By: #### [id number] #### [facility] ([facility]) [address] [place] [address]IMA (RBC) [Entitic mass]31.2 llFmrone94.0-33.0UnPremier Health [facility] Hospital NorthComment on above:Performed By: #### [id number] #### [facility] ([facility]) [address] [place], [place] [address]VIQ (RBC) [Entitic vol]94.2 fAHcjhdl46.0-98.0UnPremier Health [facility] Hospital NorthComment on above:Performed By: #### [id number] #### [facility] ([facility]) [address] [place], [place] [address]TSSCDZYDV (10*3/UL) IN BLOOD AUTOMATED [id number] 10*3/uLNormal 150-400UnPremier Health Miami [facility] Hospital NorthComment on above:Performed By: #### [id number] #### [facility] ([facility]) [address] [place] [address]FFF (Bld) [#/Vol]4.65 10*6/uLNormal3.80-5.00[facility] HospitalComment on above:Performed By: #### [id number] #### [facility] ([facility]) [address] [place] [address]CCR (Bld) [#/Vol]8.41 10*3/uLNormal4.00-10.60UnPremier Health [facility] Hospital NorthComment on above:Performed By: #### [id number] #### [facility] ([facility]) [address] [place] [address]BSQUXTAbk 13-75-6579DFVUQUO Attestation signed by Sherly Dang MD at 07/06/2024 1:18 PM I personally spoke with Ms. Weller with Dr. Saab and examined her. She [...] including bleeding (increased due to xarelto use), RI, stroke, , emergency surgery, kidney injury, contrast reaction etc.) She understands and agrees to proceed. Cardiology Consult Note Reason for Consult: Chest [...] in remission since 2011. 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 Last surface echo: Dec [...] of serum troponin #His (more content not included)...NormalUnPremier Health Miami Valley Hospital NorthHCG, QUANTITATIVE, PREGNANCYon 25-18-3225YJSBWWGRSTICDEFYIN (MIU/L) IN SER/PLAS5 mIU/LNormalUnPremier Health Miami Valley Hospital NorthComment on above:Result Comment: FEMALE REFERENCE RANGES: NON 0-5 4 WKS SINCE PERIOD 3-426 5 WKS SINCE PERIOD 19-7340 6 WKS SINCE PERIOD 1080-56,500 10 WKS SINCE PERIOD 54,100-288,000 18 WKS SINCE PERIOD 8,910-66,000 31 WKS SINCE PERIOD 5,310-27,400 MALE REFERENCE RANGE: 0-2Performed By: #### [id number] ####[facility] ([facility])[address] [place], [place] [address]RHZEBJQIEG A1Con 22-09-3194Nxfrjzr [Mass/Vol]120 mg/dLNormalUniHighland District HospitalComment on above: Performed By: #### [id number] #### [facility] ([facility]) [address] [place], [place] [address]QkH7n (Bld) [Mass fraction]5.8 %Normal4.0-6.0UnPremier Health Miami Valley Hospital NorthComment on above:Performed By: #### [id number] #### [facility] ([facility]) [address] [place], [place] [address]ZRKC SENSITIVITY TROPONIN Ion 26-90-6225KQ TROPONIN I (NG/L)3570 ng/LCritically high<15UnPremier Health Miami Valley Hospital NorthComment on above: Performed By: #### [id number] #### [facility] ([facility]) [address] [place], [place] [address]SR TROPONIN I (NG/L)3642 ng/LCritically high<15UnPremier Health Miami Valley Hospital NorthComment on above:Performed By: #### [id number] #### [facility] ([facility]) [address] [place], [place] [address]KM TROPONIN I (NG/L)3033 ng/LCritically high<15UnPremier Health Miami Valley Hospital NorthComment on above:Performed By: #### LAB15 #### [facility] ([facility]) [address] [facility]ARE CENTERMarianne [place], [place] [address]IHKUF PANELon 56-15-2175OXKN/HDL3.9 mg/dLNormalUniHighland District HospitalComment on above:Performed By: #### LAB18 #### [facility] ([facility]) [address] [place], [place] [address]Xcjzrkojavk [Mass/Vol]225 mg/lFOybq287-510PjqelqljiyPremier Health Miami Valley Hospital NorthComment on above:Performed By: #### LAB18 #### [facility] ([facility]) [address] [place], [place] [address]Nwmaoguuk [Mass/Vol]117 mg/dLNormal<150UnPremier Health Miami Valley Hospital NorthComment on above:Result Comment: TRIGLYCERIDE REFERENCE RANGE: 20 YEARS AND OLDER CARDIOVASCULAR RISK LESS THAN 150 mg/dL LOW RISK 150 TO 199 mg/dL BORDERLINE RISK 200 mg/dL AND GREATER HIGH RISKPerformed By: #### LAB18 #### [facility] ([facility]) [address] [place], [place] [address]Aruyaepsg [Mass/Vol]145 mg/dLNormal0-160UnPremier Health Miami Valley Hospital NorthComment on above:Performed By: #### [id number] #### [facility] ([facility]) [address] [place], [place] [address]Betcokxox [Mass/Vol]57 mg/zTHipsko28-29UkvxardmtnPremier Health Miami Valley Hospital NorthComment on above:Performed By: #### LAB18 #### [facility] ([facility]) [address] [place], [place] [address]XNX HDL CHOL. (LDL+VLDL)168NormalUniHighland District HospitalComment on above:Performed By: #### LAB18 #### [facility] ([facility]) [address] [place], [place] [address]SVPSO VLDL-C23 mg/dLNormal0-40UnPremier Health Miami Valley Hospital NorthComment on above:Performed By: #### LAB18 #### [facility] ([facility]) [address] [place], [place] [address]Sf Panel InformationOrdered By: Radiologist Radiology on 15-44-6072MNWN [facility] Work Phone: XR CHEST 2V FRONTAL/LATon 05-29-2024* * *Final Report* * * DATE OF [...] any questions regarding this interpretation, please call [phone]. If you are unable to reach us at the number above, please feel free to contact [facility] at [phone]. [id number]^AGFA_IDC^SI^ACNCCFRadiology, Radiologist, - 05/29/2024 * * *Final Report* [...] any questions regarding this interpretation, please call [phone]. If you are unable to reach us at the number above, please feel free to contact [facility] at [phone]. [id number]^AGFA_IDC^SI^ACN [facility] HealthcareRadiology Study observation (narrative)[facility] HealthcareXR Chest PA and Lateralon 65-39-7389AAPQGDWMDJ: 1. Trace loculated left pleural effusion, decreased [...] any questions regarding this interpretation, please call [phone]. If you are unable to reach us at the number above, please feel free to contact [facility] eRadiology at [phone].DIVISION OF RADIOLOGY* * *Final Report* * * DATE OF [...] present within the thoracic spine. DIVISION OF RADIOLOGYProvider, [facility] [place] - 05/29/2024 * * *Final Report* * [...] any questions regarding this interpretation, please call [phone]. If you are unable to reach us at the number above, please feel free to contact [facility] at [phone]. [facility] Study observation (narrative)[facility] CHEST EFFUSION SURVEYon 96-22-9534YX CHEST EFFUSION SURVEY* * *Final Report* * * DATE OF EXAM: May 08 2024 8:05PM [facility] 1234 - US CHEST EFFUSION SURVEY / [...] There is a small left pleural effusion. Supervisor International Reservations: [facility] Transcribe Date/Time: May 10 2024 4:21P Dictated by : STEFAN MENDOZA MD This examination was interpreted and the report reviewed and electronically signed by: STEFAN MENDOZA MD on May 10 2024 4:21PM EST [id number]_IDCSIACNNormalShriners Hospitals for Children CBC W AUTO DIFF BLDon 05-04-2024 Basophils/100 WBC (Bld)0.3 %NOMS [facility] BASOPHILS # BLD AUTO<0.03NINFNOProgress West Hospital DIFFERENTIAL METHOD BLDAutoNOMS HealthcareF EOSINOPHIL # BLD AUTO0.26NINFNOKindred HospitalF LYMPHOCYTES # BLD AUTO1.95NOKindred HospitalF MONOCYTES # BLD AUTO0.67NINFMadison Medical CenterF NEUTROPHILS # BLD AUTO4.68NOKindred HospitalF NRBC # BLD AUTO<0.01NINFAlvin J. Siteman Cancer Center NRBC/100 WBC BLD-RTO0 /100 WBCNOMS HealthcareCCF PLATELET # BLD [id number] Community HospitalCCF PMV BLD AUTO 8.8 fLLow9.0 - 12.7 fLOzarks Community HospitalCCF WBC # BLD AUTO7.6[facility] Eosinophils/100 WBC (Bld)3.4 %[facility] HospitalErythrocyte distribution width (RBC) [Ratio]13.5 %11.5 - 15.0 %[facility] HospitalHematocrit (Bld) [Volume fraction]43.1 %36.0 - 46.0 %[facility] HospitalHemoglobin (Bld) [Mass/Vol]14.3 g/dL 11.5 - 15.5 g/dLSelect Specialty Hospital GRANULOCYTES # BLD AUTO<0.03NINFSelect Specialty Hospital GRANULOCYTES/LEUK NFR BLD AUTO0.3 %[facility] HospitalInterpretation and review of laboratory resultsAbnormalOzarks Community HospitalLymphocytes/100 WBC (Bld) 25.7 %Kindred HospitalH (RBC) [Entitic mass]31.4 pg26.0 - 34.0 pgKindred HospitalHC (RBC) [Mass/Vol]33.2 g/dL30.5 - 36.0 g/dLOzarks Community HospitalMCV (RBC) [Entitic vol]94.7 fL80.0 - 100.0 fLOzarks Community HospitalMonocytes/100 WBC (Bld)8.8 % [facility] HospitalNeutrophils/100 WBC (Bld)61.5 %[facility] Community HospitalRBC (Bld) [#/Vol] 4.55 10*6/uL3.90 - 5.20 m/uLOzarks Community HospitalSpecimen Type: BLOOD SPECIMEN [facility] Address: [address] [place] [address] Original Ordering Provider: RUPERTO HANSON [facility] HospitalNo Panel InformationOrdered By: Radiologist Radiology on [id number] Community Hospital Work Phone: xr CHEST 2V FRONTAL/LATon 05-04-2024* * *Final Report* * * DATE OF [...] any questions regarding this interpretation, please call [phone]. If you are unable to reach us at the number above, please feel free to contact [facility] at [phone]. [id number]^AGFA_IDC^SI^ACNCCFRadiology, Radiologist, - 05/04/2024 * * *Final Report* * [...] any questions regarding this interpretation, please call [phone]. If you are unable to reach us at the number above, please feel free to contact [facility] at [phone]. [id number]^AGFA_IDC^SI^ACN [facility] HospitalRadiology Study observation (narrative)[facility] Community HospitalXR Chest PA and Lateralon 09-44-5433TWJJODTNUS: New moderate left pleural effusion. Transcribe Date/Time: May 04 2024 11:15A Dictated by: JEWELL VUONG MD This examination was interpreted and the report reviewed and electronically signed by: JEWELL VUONG MD on May 04 2024 11:19AM EST Thank you for allowing us to participate in the care of your patient. Should there be any questions regarding this interpretation, please call [phone]. If you are unable to reach us at the number above, please feel free to contact [facility] at [phone].DIVISION OF RADIOLOGY* * *Final Report* * * DATE OF [...] right pleural effusion. No pneumothorax. DIVISION OF RADIOLOGYProvider, [facility] [place] - 05/04/2024 * * *Final Report* * [...] any questions regarding this interpretation, please call [phone]. If you are unable to reach us at the number above, please feel free to contact [facility] at [phone]. [facility] Study observation (narrative)[facility] CBC PNL BLD AUTOon [id number] NRBC # BLD AUTO<0.01NINFAlvin J. Siteman Cancer Center PLATELET # BLD [id number] J. Siteman Cancer Center PMV BLD AUTO9 fL9.0 - 12.7 fLAlvin J. Siteman Cancer Center WBC # BLD AUTO9.57[facility] HospitalErythrocyte distribution width (RBC) [Ratio] 13.6 %11.5 - 15.0 %[facility] HospitalHematocrit (Bld) [Volume fraction]43 %36.0 - 46.0 %[facility] HospitalHemoglobin (Bld) [Mass/Vol]14.3 g/dL11.5 - 15.5 g/dLKindred HospitalH (RBC) [Entitic mass]31 pg26.0 - 34.0 pgKindred HospitalHC (RBC) [Mass/Vol]33.3 g/dL30.5 - 36.0 g/dLKindred HospitalV (RBC) [Entitic vol]93.1 fL 80.0 - 100.0 fLOzarks Community HospitalRBC (Bld) [#/Vol]4.62 10*6/uL3.90 - 5.20 m/uLOzarks Community HospitalSpecimen Type: BLOOD SPECIMEN [facility] Address: [address] [place] [address] Original Ordering Provider: NOVA SWANSONAlvin J. Siteman [facility] Center ARTERIAL BLOOD GASESon 15-27-5480IMBC DEFICIT BLDA-SCNC-1 mmol/L-2 - 0 mmol/LNOMS [facility] Body zlwmzxmisiq06.6 [degF][facility] HealthcareCA-I ADJ PH7.4 BLDA-SCNC1.21 mmol/L 1.08 - 1.30 mmol/LNOMS [facility] HospitalCCF CA-I BLD-MCNC1.24 mmol/L1.08 - 1.30 mmol/L NOMS HealthcareCCF COHGB MFR BLDA1.6 %0.0 - 2.0 %[facility] HealthcareComment on above:Carboxyhemoglobin Reference Range for Smokers: 2.0-8.0%CCF LACTATE BLD-SCNC2 mmol/L0.5 - 2.2 mmol/LNOMS [facility] Samaritan HospitalF METHGB MFR BLD<1.00.0 - 1.5 % [facility] O2 THERAPYRA=Room AirNOProgress West Hospital OXYHGB MFR BLDA93 % Low95 - 98 %[facility]ison Medical CenterF PCO2 KUC11BYWAProgress West Hospital PH BLD7.367.35 - 7.45[facility] PO2 [id number] Community HospitalGlucose [Mass/Vol]114 mg/dL High60 - 105 mg/dLOzarks Community HospitalHCO3 (Bld) [Moles/Vol]25 mmol/L22 - 26 mmol/L [facility] HospitalHematocrit (Bld) [Volume fraction]43.6 %36.0 - 46.0 %[facility] HospitalHemoglobin (Bld) [Mass/Vol]14.2 g/dL11.5 - 15.5 g/dLOzarks Community Hospital Interpretation and review of laboratory resultsAbnormalSTEWARD HEALTH CARE SYSTEM HealthcarePO2 / FIO2 MLDBZ232- PINFNOPA HealthcarePotassium [Moles/Vol]4.1 mmol/L3.5 - 5.0 mmol/L [facility] HospitalSAO2 % BLDA95 %95 - 98 %[facility] Community HospitalSodium [Moles/Vol]142 mmol/L136 - 144 mmol/LNMEMORIAL HOSPITAL OF [facility] HealthcareSpecimen Type: ARTERIAL BLOOD SPECIMEN [facility] Address: [address] [place] [address] Original Ordering Provider: JANI YU [facility] LUNG VENT / PERF VQon 01-15-2024* * *Final Report* * * DATE OF EXAM: Jan 15 2024 11:18AM [facility] [address] [facility] LUNG VENT / PERF VQ / PROCEDURE [...] PE protocol chest CT may be performed. Supervisor International Reservations: DEDE Transcribe Date/Time: Jan 15 2024 11:50A Dictated by : CAIO HINKLE MD This examination was interpreted and the report reviewed and electronically signed by: CAIO HINKLE MD on Jan 15 2024 11:53AM EST [id number]^AGFA_IDC^SI^ACNCCFRadiology, Radiologist, - 01/15/2024 * * *Final Report* [...] PE protocol chest CT may be performed. [employer] Reservations: DEDE Transcribe Date/Time: Jan 15 2024 11:50A Dictated by : CAIO HINKLE MD This examination was interpreted and the report reviewed and electronically signed by: CAIO HINKLE MD on Jan 15 2024 11:53AM EST [id number]^AGFA_IDC^SI^ACN [facility] LUNG VENT / PERF VQ* * *Final Report* * * DATE OF EXAM: Jan 15 2024 11:18AM [place] [id number] [place] LUNG VENT / PERF VQ / PROCEDURE [...] PE protocol chest CT may be performed. [employer] Reservations: DEDE Transcribe Date/Time: Jan 15 2024 11:50A Dictated by : CAIO HINKLE MD This examination was interpreted and the report reviewed and electronically signed by: CAIO HINKLE MD on Jan 15 2024 11:53AM EST [id number] HospitalRadiology Study observation (narrative) [facility] Lung Ventilation and Perfusionon 70-12-4420KGIGCPXBSP: LOW probability VQ scan. If there is a discordant clinical likelihood of thromboembolic disease, additional evaluation with lower extremity venous Dopplers and/or contrast-enhanced PE protocol chest CT may be performed. Supervisor International Reservations: [facility]ENCEEd[facility] Transcribe Date/Time: Jan 15 2024 11:50A Dictated by : CAIO HINKLE MD This examination was interpreted and the report reviewed and electronically signed by: CAIO HINKLE MD on Jan 15 2024 11:53AM EST [facility]* * *Final Report* * * DATE OF [...] available. No moderate/large segmental mismatched perfusion defects. JEWELL RADIOLOGYProvider, [facility] [place] - 01/15/2024 * * *Final Report* * [...] PE protocol chest CT may be performed. [employer]visor [employer] Reservations: DEDE Transcribe Date/Time: Jan 15 2024 11:50A Dictated by : CAIO HINKLE MD This examination was interpreted and the report reviewed and electronically signed by: CAIO HINKLE MD on Jan 15 2024 11:53AM EST [facility] ShawRad[facility] Study observation (narrative)[facility] Panel InformationOrdered By: Ccf Provider on [id number] ClinicOXIMETRY WITH AMBULATIONon 90-24-1545MkhqdPerla Powell RRT 01/15/2024 10:22 AM RESPIRATORY THERAPY OXIMETRY WITH [...] January 15, 2024 TIME: 10:19 AM Comment: [facility]NP[facility] 57-73-3446IKXXUchizoiue (AVXRMO) CELSO WELLER ([id number]) 1980 F Date Time Provider Department 01/14/24 JOCELYN EDWARDS AVXRMO During your visit today, we recorded the following information about you: Jocelyn Edwards RT(R) 01/14/2024 11:32 AM Signed Spoke with patient confirming arrival of 10:45. Explained test, length, no prep and confirmed / status. [facility] is [facility] at [facility] for [facility] appointments and will come down [...] Fully Assessed Reason for Visit: Radiology NM [0170] Cmt: Appointment reminder. 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 Chronic chest pain [R07.9, G89.29] 03/16/2013 12/26/2015 Hospital discharge follow-up [Z09] 03/16/2013 12/26/2015 Tachycardia [R00.0] 03/16/2013 12/26/2015 CINV (chemotherapy-induced nausea and vomiting)*03/17/2013 10/13/2015 Excess fluid volume [E87.70] 03/21/2013 12/26/2015 Elevated LFTs [R79.89] 03/22/2013 12/26/2015 Reflux [HTE1211] 03/23/2013 12/26/2015 Mucositis (ulcerative) due to antineoplastic [...] jiroveci pneumonia) (HCC) [B5*06/03/201412/25/ (more content not included)...NormalAvon HospitalGATEWAY REHABILITATION [facility] NT-PROBNP [facility]-HAHNEMANN UNIVERSITY HOSPITALon 01-06-2024 Natriuretic peptide B (Bld) [Mass/Vol]643 pg/mLHighNINF - 125 pg/mLNOMS HealthcareSpecimen Type: BLOOD SPECIMEN [facility] Address: [address] [place] [address] Original Ordering Provider: JANI SURICLINISYNCComprehensive metabolic 2000 panel on 27-78-8115Oozfamw [Mass/Vol]4.2 g/dL3.9 - 4.9 g/dLDry Run ClinicALP [Catalytic activity/Vol]56 U/L34 - 123 U/LCleveland ClinicALT [Catalytic activity/Vol]38 U/L7 - 38 U/LCleveland ClinicAnion gap [Moles/Vol]9 mmol/L8 - 15 mmol/LCleveland ClinicAST [Catalytic activity/Vol]39 U/LHigh13 - 35 U/L [facility] ShawBilirubin [Mass/Vol]0.5 mg/dL0.2 - 1.3 mg/dLSelect [facility] Calcium [Mass/Vol]9.5 mg/dL8.5 - 10.2 mg/dLSelect Medical [facility] Clinic Rehabilitation Hospital, Edwin ShawChloride [Moles/Vol] 103 mmol/L98 - 107 mmol/LCleveland ClinicCO2 [Moles/Vol]30 mmol/L22 - 30 mmol/L [facility] ShawCreatinine [Mass/Vol]0.73 mg/dL0.58 - 0.96 mg/dLSelect [facility] GFR/1.73 sq M.predicted among non-blacks MDRD (S/P/Bld) [Vol rate/Area]106 mL/min/{1.73_m2}- PINFCMercy Health Tiffin HospitalComment on above:Estimated Glomerular Filtration Rate (eGFR) is calculated using the 2020 CKD-EPI creatinine equation. This equation utilizes serum creatinine, sex, and age as parameters. The creatinine assay has traceable calibration to isotope dilution-mass spectrometry. Refer to KDIGO guidelines for clinical interpretation. In patients with unstable renal function, e.g. those with acute kidney injury, the eGFRmay not accurately reflect actual GFR.Glucose [Mass/Vol]91 mg/dL74 - 99 mg/dL [facility] Hospital, [facility] ShawComment on above:The [place] Diabetes Association (ADA) provides guidance for cutoff values for fasting glucose andrandom glucose. The ADA defines fasting as no caloric intake for at least 8 hours. Fasting plasma gl ucose results between 100 to 125 mg/dL indicate [...] Standards of Medical Care in Diabetes 2016, [place] Diabetes Association. Diabetes Care. 2016.39(Suppl 1). Interpretation and review of laboratory resultsAbnormalCleveland ClinicPotassium [Moles/Vol]4.0 mmol/L3.7 - 5.1 mmol/LCleveland ClinicProtein [Mass/Vol]7.0 g/dL 6.3 - 8.0 g/dLDry Run ClinicSodium [Moles/Vol]142 mmol/L136 - 144 mmol/L [facility] ShawUrea nitrogen [Mass/Vol]7 mg/dL7 - 21 mg/dLSelect [facility] Albumin [Mass/Vol]4.2 g/dLNormal3.9-4.9Avon HospitalComment on above:Order Comment: Specimen Type: BLOOD SPECIMENOrdering Facility: [facility] Address:[address] [place], [place] [address]Performed By: #### 72544- 6, 54201-6, ####[facility] LABORATORYCLIA [id number] [place] [address] [place] AMERICAALP [Catalytic activity/Vol] 56 U/DJsiqpo42-054Vqzu HospitalComment on above:Order Comment: Specimen Type: BLOOD SPECIMENOrdering Facility: [facility] Address:[address] [place], [place] [address]Performed By: #### 02711-4, 85411-2, ####[facility] MARY HOSPITALIA [id number] [place] [address] [place] AMERICAALT [Catalytic activity/Vol]38 U/LNormal7-38Avon HospitalComment on above:Order Comment: Specimen Type: BLOOD SPECIMENOrdering Facility: [facility] Address:[address] [place], [place] [address]Performed By: #### 25369-7, , ####[facility] MARY HOSPITALIA [id number] [place] [address] [place] AMERICAAnion gap [Moles/Vol]9 mmol/LNormal8-15Avon HospitalComment on above:Order Comment: Specimen Type: BLOOD SPECIMENOrdering Facility: [facility] Address:[address] [place], [place] [address]Performed By: #### 94262-0, 91123-3, ####[facility] MARY HOSPITALIA [id number] [place] [address] [place] AMERICAAST [Catalytic activity/Vol]39 U/ZArru71-48Pvul HospitalComment on above:Order Comment: Specimen Type: BLOOD SPECIMENOrdering Facility: [facility] Address:[address] [place], [place] [address]Performed By: #### 10754-6, 42273-2, ####[facility] HOSPITALIA [id number] [place] [address] [place] AMERICABilirubin [Mass/Vol]0.5 mg/dLNormal 0.2-1.3Avon HospitalComment on above:Order Comment: Specimen Type: BLOOD SPECIMENOrdering Facility: [facility] Address:[address] [place], [place] [address]Performed By: #### 25830-5, 81838-5, ####[facility] MARY HOSPITALIA [id number] [place] [address] [place] AMERICACalcium [Mass/Vol]9.5 mg/dLNormal8.5-10.2[facility] Comment on above:Order Comment: Specimen Type: BLOOD SPECIMENOrdering Facility: [facility] Address:[address] [place] [address] Performed By: #### 06427-1, 95335-9, ####[facility] HOSPITALIA [id number] [place] [address] [place] Chloride [Moles/Vol]103 mmol/SLdygoe95-358Ebjg HospitalComment on above:Order Comment: Specimen Type: BLOOD SPECIMENOrdering Facility: [facility] Address:[address] [place], [place] [address]Performed By: #### 11207- 6, 18314-1, ####[facility] LABORATORYCLIA [id number] [place] [address] [place] AMERICACO2 [Moles/Vol]30 mmol/L Czrjmn32-09Rzhj HospitalComment on above:Order Comment: Specimen Type: BLOOD SPECIMENOrdering Facility: [facility] Address:[address] [place], [place] [address]Performed By: #### 66927-0, 39364-4, ####[facility] LABORATORYCLIA [id number] [facility] [place] [address] [place] AMERICACreatinine [Mass/Vol]0.73 mg/dLNormal0.58-0.96Hilton Head Island HospitalComment on above:Order Comment: Specimen Type: BLOOD SPECIMENOrdering Facility: [facility] Address:[address] [place] [address]Btvfwzscb By: #### 40429-2, 67964-3, ####[facility] LABORATORYCLIA [id number] [facility] [place] [address] [place] AMERICACreatinine and Glomerular filtration rate.predicted panel (S/P/Bld)106 mL/min/1.73m???Normal>=60AvPerry County Memorial HospitalComment on above:Order Comment: Specimen Type: BLOOD SPECIMENOrdering Facility: [facility] Address:[address] [place], [place] [address]Result Comment: Estimated Glomerular Filtration Rate (eGFR) is calculated using the 2020 CKD-EPI cre atinine equation. This equation utilizes serum creatinine, sex, and age as parameters. The creatinine assay has traceable calibration to isotope dilution- mass spectrometry. Refer to KDIGO guidelines for clinical interpretation. In patients with unstable renal function, e.g. those with acute kidney injury, the eGFR may not accurately reflect actual GFR.Performed By: #### 99402-4, 63761-6, ####[facility] LABORATORYCLIA [id number] [facility] [place] [address] [place] AMERICAGlucose [Mass/Vol]91 mg/dLNormal 74-99Av HospitalComment on above:Order Comment: Specimen Type: BLOOD SPECIMENOrdering Facility: [facility] Address:[address] [place] [address]Fvrcox Comment: The [place] Diabetes Association (ADA) provides guidance for [...] Standards of Medical Care in Diabetes 2016, [place] [employer]. Diabetes Care. 2016.39(Suppl 1).Performed By: #### 11494-3, 84581- 8, ####[facility] LABORATORYCLIA [id number] [place] [address] [place] AMERICAPotassium [Moles/Vol]4.0 mmol/L Normal3.7-5.1Avon HospitalComment on above:Order Comment: Specimen Type: BLOOD SPECIMENOrdering Facility: [facility] Address:[address] [place], [place] [address]Performed By: #### 77704-6, 82354-5, ####[facility] HOSPITALIA [id number] [place] [address] [place] AMERICAProtein [Mass/Vol]7.0 g/dLNormal6.3-8.0Av Hospital Comment on above:Order Comment: Specimen Type: BLOOD SPECIMENOrdering Facility: [facility] Address:[address] [place] [address] Performed By: #### 49368-8, , ####[facility] HOSPITALIA [id number] [place] [address] [place] Sodium [Moles/Vol]142 mmol/CBvrfcs208-777Hvvk HospitalComment on above:Order Comment: Specimen Type: BLOOD SPECIMENOrdering Facility: [facility] Address:[address] [place], [place] [address]Performed By: #### 92082- 6, , ####[facility] LABORATORYIA [id number] [place] [address] [place] AMERICAUrea nitrogen [Mass/Vol]7 mg/dLNormal7-21Av HospitalComment on above:Order Comment: Specimen Type: BLOOD SPECIMENOrdering Facility: [facility] Address:[address] [place], [place] [address]Performed By: #### 24867-1, 87337-6, ####[facility] HOSPITALIA [id number] [place] [address] [place] AMERICAMAGNESIUMon 65-07-8736Eeovpiqbl [Mass/Vol]2.1 mg/dL1.7 - 2.3 mg/dLSelect Medical Cleveland Clinic Rehabilitation Hospital, Edwin ShawMagnesium SerPl-mCncon 72-98-0583Eelzjohfv [Mass/Vol] 2.1 mg/dLNormal1.7-2.3Avon HospitalComment on above:Order Comment: Specimen Type: BLOOD SPECIMENOrdering Facility: [facility] Address:[address] [place], [place] [address]Performed By: #### 41797-3, 98985-8, ####[facility] LABORATORYCLIA [id number] [place] [address] [place] AMERICAMagnesium [Mass/Vol]on 52-92-6362Wrtlxmulqlacns and review of laboratory resultsNormalCleveland ClinicNT PRO BNPon 01-06-2024 Natriuretic peptide.B prohormone N-Terminal [Mass/Vol]643 pg/mLHighNINF - 125 pg/mLCleveland ClinicNT-proBNP SerPl-mCncon 71-77-3315Ikezawmaldk peptide.B prohormone N-Terminal [Mass/Vol]643 pg/mLHigh<125Avon HospitalComment on above: Order Comment: Specimen Type: BLOOD SPECIMENOrdering Facility: [facility] Address:[address] [place], [place] [address]Performed By: #### 12728- 6, 57538-5, ####[facility] HOSPITALIA [id number] [place] [address] [place] AMERICANo Panel Informationon 38-02-2451Dmnzzcmay ClinicInterpretation and review of laboratory results AbnormalKettering Health [facility] Township CHEST EFFUSION SURVEYon 01-05-2024* * *Final Report* * * DATE OF EXAM: Jan 03 2024 1:40PM [facility] 1234 - US CHEST EFFUSION SURVEY / [...] pleural effusion and small LEFT pleural effusion. Supervisor International Reservations: [facility] Transcribe Date/Time: Jan 05 2024 10:39P Dictated by : FIORELLA RIVERA DO This examination was interpreted and the report reviewed and electronically signed by: FIORELLA RIVERA DO on Jan 05 2024 10:40PM EST [id number]^AGFA_IDC^SI^ACNCCFRadiology, Radiologist, - 01/05/2024 * * *Final Report* * * DATE OF EXAM: Jan 03 2024 1:40PM [facility] 1234 - US CHEST EFFUSION SURVEY / [...] pleural effusion and small LEFT pleural effusion. Supervisor International Reservations: [facility] Transcribe Date/Time: Jan 05 2024 10:39P Dictated by : FIORELLA RIVERA DO This examination was interpreted and the report reviewed and electronically signed by: FIORELLA RIVERA DO on Jan 05 2024 10:40PM EST [id number]^AGFA_IDC^SI^ACN NOMS HealthcareUS CHEST EFFUSION SURVEYOrdered By: Radiologist Radiology on 41-91-8276VMRJ [employer] Work Phone: US CHEST EFFUSION SURVEYon 19-37-1730CY CHEST EFFUSION SURVEY* * *Final Report* * * DATE OF EXAM: Jan 03 2024 1:40PM [facility] 1234 - US CHEST EFFUSION SURVEY / [...] pleural effusion and small LEFT pleural effusion. Supervisor International Reservations: [facility] Transcribe Date/Time: Jan 05 2024 10:39P Dictated by : FIORELLA RIVERA DO This examination was interpreted and the report reviewed and electronically signed by: FIORELLA RIVERA DO on Jan 05 2024 10:40PM EST [id number]_IDCSIACNNJersey City Medical Center HospitalRadiology Study observation (narrative) [facility] HealthcareCCF BACTERIA BAL AEROBE CULTon 11-18-1932DBM BACTERIA BAL AEROBE CULT CULTURE, BRONCH: No growth 2 days [facility] HealthcareCCF BACTERIA BAL AEROBE CULT GRAM STAIN: No organisms seen [facility] HealthcareCC BACTERIA BAL AEROBE CULTRare Polymorphonuclear leukocytesNOMS HealthcareGATEWAY REHABILITATION [facility]PITAL BACTERIA BAL AEROBE CULTGram stain performed on cytospun specimen.[facility] HealthcareOriginal Ordering Provider: QUINCY KANG [facility] HospitalANES POSTPROC EVALon 39-50-4880YTCJ POSTPROC EVALHNO ID: [id number] Author: EDUIN CA MD Service: Anesthesiology Author Type: Anesthesiologist Type: Anesthesia Postprocedure Evaluation Filed: 12/20/2023 14:15 Note Text: POST ANESTHESIA EVALUATION NOTE : 1980 Procedure Summary Date: 12/20/23 Room / Location: ENDO 02 / [facility] Anesthesia Start: 1337 Anesthesia Stop: 1410 Procedure: [...] December 20, 2023 TIME: 2:15 PM CSN: [id number] Health Richmond PRE-OPon 37-48-7582VLVP PRE-OPHNO ID: [id number] Author: EDUIN CA MD Service: Anesthesiology Author [...] and consent discussed: yes. Patient / Responsible Alliance Party agrees to proceed: yes Patient / Surrogate [...] breath prochlorperazine (COMPAZINE) 10 (more content not included)...NormalAvon HospitalASPERGILLUS GALACTOMANNAN BALon 89-64-8054PSCIH. AG BAL,QUALNegative NormalNegativeAvon HospitalComment on above:Order Comment: Specimen Type: SPECIMEN OBTAINED BY LAVAGEOrdering Facility: [facility] Address: [address] [place], [place] [address]Result Comment: Aspergillus Galactomannan antigen assay is used as an aid in diagnosis of invasive a spergillosis in immunocompromised individuals especially in post-stem cell transplant, hematological malignancies on chemotherapy, and HIV-positive patients with very low CD4 T-cell counts. The test may also be used in disease prognostication and for monitoring response to anti-fungal therapy. False positive and false negative results are not uncommon. Clinical and radiological correlation is required.Performed By: #### ASGALB ####[facility] LABCLIA [id number] [place] [address] [place] AMERICAASPERGILLUS GALACTOMANNAN0.07 Index ValueNormal<=0.49Avon HospitalComment on above:Order Comment: Specimen Type: SPECIMEN OBTAINED BY LAVAGEOrdering Facility: [facility] Address: [address] [place], [place] [address]Performed By: #### ASGALB ####[facility] LABCLIA [id number] [place] [address] [place] AMERICABAL MANUAL DIFFon 45-81-1245PFO TTL, BA CBBUZP925 cells countedNoAtlantiCare Regional Medical Center, Atlantic City Campus HospitalComment on above:Order Comment: Specimen Type: SPECIMEN OBTAINED BY LAVAGEOrdering Facility: [facility] Address: [address] [place], [place] [address]Performed By: #### MATT [id number] ####[facility] LABCLIA [id number] [place] [address] [place] AMERICALYMPH%, BA CCUNER72 %NormalAvon HospitalComment on above:Order Comment: Specimen Type: SPECIMEN OBTAINED BY LAVAGEOrdering Facility: [facility] Address: [address] [place], [place] [address]Performed By: #### MATT, [id number] ####[facility] LABCLIA [id number] [place] [address] [place] AMERICAMACRO%, BA NYFFVN48 %NormalAvon HospitalComment on above:Order Comment: Specimen Type: SPECIMEN OBTAINED BY LAVAGEOrdering Facility: [facility] Address: [address] [place], [place] [address]Performed By: #### MATT [id number] ####[facility] LABCLIA [id number] [place] [address] [place] AMERICANEUT%, BA LAVAGE3 %NormalAvon HospitalComment on above:Order Comment: Specimen Type: SPECIMEN OBTAINED BY LAVAGEOrdering Facility: [facility] Address: [address] [place], [place] [address]Performed By: #### MATT [id number] ####[facility] LABCLIA [id number] [place] [address] [place] AMERICABAL ROUTINE BFLon 38-10-3757YWR COMMENTNoDavis Hospital and Medical Center Comment on above:Order Comment: Specimen Type: SPECIMEN OBTAINED BY LAVAGEOrdering Facility: [facility] Address: [address] [place], [place] [address]Result Comment: Count may be inaccurate due to DisintegrationPerformed By: #### MATT [id number] ####[facility] LABCLIA [id number] [place] [address] [place] AMERICAClarity (Unsp spec)ClearNormalClearAvon HospitalComment on above:Order Comment: Specimen Type: SPECIMEN OBTAINED BY LAVAGEOrdering Facility: [facility] Address: [address] [place], [place] [address]Performed By: #### MATT [id number] ####[facility] LABCLIA [id number] [place] [id number] [place] Color (Bronch spec)ColorlessNormalColorlessAvon HospitalComment on above:Order Comment: Specimen Type: SPECIMEN OBTAINED BY LAVAGEOrdering Facility: [facility] Address: [address] [place], [place] [address]Performed By: #### MATT [id number] ####[facility] LABCLIA [id number] [address]RB LM.HPF (BAL) [#/Area]123 /uLNormalReference range not established.[facility] HospitalComment on above:Order Comment: Specimen Type: SPECIMEN OBTAINED BY LAVAGEOrdering Facility: [facility] Address: [address] [place], [place] [address]Performed By: #### MATT [id number] ####[facility] LABCLIA [id number] [address]ETWBC Manual cnt (Bronch spec) [#/Vol]180 /uLNormalReference range not established.[facility] HospitalComment on above:Order Comment: Specimen Type: SPECIMEN OBTAINED BY LAVAGEOrdering Facility: [facility] Address: [address] [place], [place] [address]Performed By: #### MATT [id number] ####[facility] LABCLIA [id number] [place] [address] [place] AMERICABacteria BAL Aerobe Culton 65-08-0473Gyjbtxdn identified Aer cx Nom (BAL)CULTURE, BRONCH: No growth 2 days GRAM STAIN: No organisms seen Rare Polymorphonuclear leukocytes Gram stain performed on cytospun specimen.NormalAv HospitalComment on above: Performed By: #### 92261-7, 580-1, 12873-3 ####[facility] LABCLIA [id number] [place] [address] [place] AMERICABasic metabolic 2000 panelon 88-96-2368Auyyo gap [Moles/Vol]9 mmol/L Normal8-15Avon HospitalComment on above:Order Comment: Specimen Type: BLOOD SPECIMENOrdering Facility: [facility] Address:[address] [place], [place] [address]Performed By: #### 80760-2 ####[facility] LABORATORYCLIA [id number] [place] [address] [place] Calcium [Mass/Vol]9.8 mg/dLNormal8.5-10.2Avon HospitalComment on above:Order Comment: Specimen Type: BLOOD SPECIMENOrdering Facility: [facility] Address:[address] [place], [place] [address]Performed By: #### 31800- 2 ####[facility] LABORATORYCLIA [id number] [place] [address] [place] AMERICAChloride [Moles/Vol]103 mmol/UVquybl28-022Gabj HospitalComment on above:Order Comment: Specimen Type: BLOOD SPECIMENOrdering Facility: [facility] Address:[address] [place], [place] [address]Performed By: #### 54117-5 ####[facility] LABORATORYCLIA [id number] [place] [address] [place] AMERICACO2 [Moles/Vol]30 mmol/CAsoief32-79Zlmi HospitalComment on above:Order Comment: Specimen Type: BLOOD SPECIMENOrdering Facility: [facility] Address:[address] [place], [place] [address]Performed By: #### 38589-3 ####[facility] LABORATORYCLIA [id number] [place] [address] [place] AMERICACreatinine [Mass/Vol]0.75 mg/dLNormal0.58-0.96Av Hospital Comment on above:Order Comment: Specimen Type: BLOOD SPECIMENOrdering Facility: [facility] Address:[address] [place] [address] Performed By: #### 60757-8 ####[facility] LABORATORYIA [id number] [place] [address] [place] AMERICACreatinine and Glomerular filtration rate.predicted panel (S/P/Bld)103 mL/min/1.73m???Normal >=60Av HospitalComment on above:Order Comment: Specimen Type: BLOOD SPECIMENOrdering Facility: [facility] Address:[address] [place], [place] [address]Result Comment: Estimated Glomerular Filtration Rate (eGFR) is calculated using the 2020 CKD-EPI creatinine equation. This equation utilizes serum creatinine, sex, and age as parameters. The creatinine assay has traceable calibration to isotope dilution-mass spectrometry. Refer to KDIGO guidelines for clinical interpretation. In patients with unstable renal function, e.g. those with acute kidney injury, the eGFR may not accurately reflect actual GFR.Performed By: #### 20077-1 ####[facility] HOSPITALIA [id number] [place] [address] [place] Glucose [Mass/Vol]106 mg/hFQnvz38-71Rrtv HospitalComment on above:Order Comment: Specimen Type: BLOOD SPECIMENOrdering Facility: [facility] Address:[address] [place], [place] [address]Zhhggc Comment: The [place] Diabetes Association (ADA) provides guidance for [...] Standards of Medical Care in Diabetes 2016, [place] [employer]. Diabetes Care. 2016.39(Suppl 1).Performed By: #### 28084-1 ####[facility] LABORATORYIA [id number] [place] [address] [place] AMERICAPotassium [Moles/Vol]4.0 mmol/LNormal3.7-5.1Avon HospitalComment on above:Order Comment: Specimen Type: BLOOD SPECIMENOrdering Facility: [facility] Address:[address] [place], [place] [address]Ienfglngk By: #### 09635-9 ####[facility] HOSPITALIA [id number] [place] [address] [place] AMERICASodium [Moles/Vol] 142 mmol/MRsvpax199-117Nfle HospitalComment on above:Order Comment: Specimen Type: BLOOD SPECIMENOrdering Facility: [facility] Address:[address] [place], [place] [address]Performed By: #### 22560-9 ####[facility] HOSPITALIA [id number] [place] [address] [place]ICAUrea nitrogen [Mass/Vol]13 mg/dLNormal7-21Av HospitalComment on above:Order Comment: Specimen Type: BLOOD SPECIMENOrdering Facility: [facility] Address:[address] [place] [address] Performed By: #### 32115-1 ####[facility] HOSPITALIA [id number] [place] [address] [facility]FAIRHILLCBC panel Auto (Bld)on 11-14-9311Sammiytxgwu distribution width (RBC) [Ratio]13.2 %Normal 11.5-15.0Av HospitalComment on above:Order Comment: Specimen Type: BLOOD SPECIMENOrdering Facility: [facility] Address:[address] [place], [place] [address]Performed By: #### 91150-1 ####[facility] HOSPITALIA [id number] [place] [address] [place] Hematocrit (Bld) [Volume fraction]44.7 %Cbpfie25.0-46.0Av HospitalComment on above:Order Comment: Specimen Type: BLOOD SPECIMENOrdering Facility: [facility] Address:[address] [place], [place] [address]Performed By: #### 84108-4 ####[facility] HOSPITALIA [id number] [place] [address] [place] AMERICAHemoglobin (Bld) [Mass/Vol]14.4 g/dL Fsdpbm84.5-15.5Avo HospitalComment on above:Order Comment: Specimen Type: BLOOD SPECIMENOrdering Facility: [facility] Address:[address] [place], [place] [address]Performed By: #### 51934-0 ####[facility] LABORATORYIA [id number] [place] [address] [facility] (RBC) [Entitic mass]31.0 kkHydiyr45.0-34.0Av HospitalComment on above:Order Comment: Specimen Type: BLOOD SPECIMENOrdering Facility: [facility] Address:[address] [place], [place] [address]Performed By: #### 64678- 2 ####[facility] LABORATORYCLIA [id number] [place] [address] [facility] (RBC) [Mass/Vol]32.2 g/wHTbovzq36.5-36.0 [facility] HospitalComment on above:Order Comment: Specimen Type: BLOOD SPECIMENOrdering Facility: [facility] Address:[address] [place], [place] [address]Performed By: #### 54145-3 ####[facility] [id number] [place] [address] [facility] (RBC) [Entitic vol]96.1 nIIvgcxd95.0-100.0Av HospitalComment on above:Order Comment: Specimen Type: BLOOD SPECIMENOrdering Facility: [facility] Address:[address] [place], [place] [address]Performed By: #### 58543- 2 ####[facility] HOSPITALIA [id number] [place] [address] [facility] RBC (Bld) [#/Vol]10*3/uLNormal<0.01 [facility] HospitalComment on above:Order Comment: Specimen Type: BLOOD SPECIMENOrdering Facility: [facility] Address:[address] [place], [place] [address]Performed By: #### 74495-5 ####[facility] LABORATORYST [facility] [id number] [place] [address] [facility] Platelet mean volume (Bld) [Entitic vol]9.4 fLNormal9.0-12.7Avon HospitalComment on above:Order Comment: Specimen Type: BLOOD SPECIMENOrdering Facility: [facility] Address:[address] [place], [place] [address] Performed By: #### 18848-9 ####[facility] LABORATORYIA [id number] [place] [address] [facility] CENTERPlatesouth shore hospital (d) [#/Vol]325 10*3/jABlyzre228-952Fmwd HospitalComment on above:Order Comment: Specimen Type: BLOOD SPECIMENOrdering Facility: [facility] Address:[address] [place], [place] [address]Performed By: #### 77412-0 ####[facility] LABORATORYIA [id number] [place] [address] [facility] ([facility]) [#/Vol]4.65 10*6/uLNormal3.90-5.20Av HospitalComment on above:Order Comment: Specimen Type: BLOOD SPECIMENOrdering Facility: [facility] Address:[address] [place], [place] [address]Performed By: #### 15654-9 ####[facility] LABORATORYIA [id number] [place] [address] [facility] ([facility]) [#/Vol] 7.52 10*3/uLNormal3.70-11.00Av HospitalComment on above:Order Comment: Specimen Type: BLOOD SPECIMENOrdering Facility: [facility] Address:[address] [place], [place] [address]Performed By: #### 67217-9 ####[facility] LABORATORYIA [id number] [place] [address] [facility] CENTERCNMartins Ferry Hospital 89-40-3719GWXIFVL ID: [id number] Author: CARLOS CASTELLON MD Service: Hospital Medicine [...] (most recent episode on October, treated at [facility]) with persistent shortness of breath, new oxygen requirements 3 L with exertion, ground glass changes on most recent PET/CT who was sent in to the ED by her client service administrator to be admitted in the hospital for [...] Department Center 12/23/2023 2:30 PM Irene Han APRN.TRAINING AND DEVELOPMENT DIRECTOR PMAMHE [facility] [place] 12/26/2023 8:30 AM Kodi Pantoja MD PAINLN [facility] [place] 12/27/2023 7:45 AM ARRIVAL TIME RADIOLOGY [facility] 01/03/2024 1:30 PM [facility] 01/03/2024 2:20 PM Korina Vega MD CARINF Re[facility] 01/14/2024 8:30 AM 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 APRN.TRAINING AND DEVELOPMENT DIRECTOR PULMLO [facility] [place] 02/10/2024 2:45 PM LAB HEMRAD STEFF [facility] 02/10/2024 3:00 PM Ruperto Ledezma MD HEMASA [facility] 04/27/2024 10:15 AM ARRIVAL TIME RADIOLOGY [facility] 05/04/2024 10:00 AM Ruperto [facility]edezma [facility] ALLERGIES Allergen Reactions Chlorhexidine Itching Severe skin irritation. Had used for central line care Sulfa (Sulfonamide * Rash DISCHARGE MEDICATION: Medication List CONTINUE taking these medications atenolol 50 mg tablet Commonly known as: TENORMIN take 1 tablet by mouth twice a day B COMPLEX PLUS VITAMIN C 12-33-32-5-300 mg Cap Generic drug: Vitamin B Comp [...] known as: DUONEB in (more content not included)...[facility] CONSULT PRONO ID: [id number] Author: QUINCY KANG MD Service: Pulmonary Disease [...] BAL for cultures, cytology. PLAN: - Dr. Becerril requested a bronch with BAL immunocompromised protocol. - She already had home O2 set up yesterday. Can do walking desat before D/C for her to know the O2 flow she needs. - I discussed with Dr. Becerril today. An additional option to consider is [...] was copied and pasted (more content not included)...NormalAvon HospitalCYTOLOGY NON-GYNon 99-87-4439OUIC REPORTNoAtlantiCare Regional Medical Center, [facility] City Campus HospitalComment on above:Order Comment: Specimen Type: SPECIMEN OBTAINED BY LAVAGEOrdering Facility: [facility] Address: [address] [place], [place] [address]Apisej Comment: Medical Cytology Report Case: [id number] Authorizing Provider: Quincy Kang MD Collected: 12/20/2023 01:53 PM Ordering Location: Procedures Received: 12/20/2023 02:31 PM Pathologist: Rosmery Franz MD Specimen: Bronchoalveolar Lavage, Right upper lobePerformed By: #### CYTONON ####[facility] LABCLIA [id number] EUCLI52 Hart StreetComment on above:Order Comment: Specimen Type: SPECIMEN OBTAINED BY LAVAGEOrdering Facility: [facility] Address: [address] [place], [place] [address]Result Comment: Pre-op diagnosis: Pulmonary infiltrates [R91.8]Performed By: #### CYTONON ####[facility] LABCLIA [id number] [address] StreetComment on above:Order Comment: Specimen Type: SPECIMEN OBTAINED BY LAVAGEOrdering Facility: [facility] Address: [address] [place], [place] [address]Result Comment: A - Bronchoalveolar Lavage, Lavage - Right upper lobe Negative for malignant cells. Performed By: #### CYTONON ####[facility] LABCLIA [id number] [address] PERFORMING LAB NormalSalt Lake Behavioral Health HospitalComment on above:Order Comment: Specimen Type: SPECIMEN OBTAINED BY LAVAGEOrdering Facility: [facility] Address: [address] [place], [place] [address]Result Comment: Technical component, nurse wound screening performed at [facility], [address] [place], [place] [address] CLIA# [id number] Diagnostic interpretation performed at [facility], [address] [place], [place] [address] CLIA# [id number] Propellant Charge Loader: Pavan Palm M.D.Performed By: #### CYTONON ####[facility] LABCLIA [id number] [address] DESCRIPTIONMarcum and Wallace Memorial HospitalComment on above:Order Comment: Specimen Type: SPECIMEN OBTAINED BY LAVAGEOrdering Facility: [facility] Address: [address] [place], [place] [address]Result Comment: A. Bronchoalveolar Lavage 20 cc cloudy colorless fluid . ThinPrep prepared.Performed By: #### CYTONON ####[facility] LABCLIA [id number] [address]ORDER COMMENTMarcum and Wallace Memorial Hospital Comment on above:Order Comment: Specimen Type: SPECIMEN OBTAINED BY LAVAGEOrdering Facility: [facility] Address: [address] [place], [place] [address]Result Comment: Pre-op diagnosis: Pulmonary infiltrates [R91.8]Performed By: #### CYTONON ####[facility] LABCLIA [id number] [address] STATES OF [facility]FAIRHILLFungus Spec Culton 43-90-6971Veowsx identified Cx Nom (Unsp spec)CULTURE, FUNGAL: No Fungus isolated after 28 daysMarcum and Wallace Memorial HospitalComment on above:Performed By: #### 82559-6, 580-1, 85266-6 ####[facility] LABCLIA [id number] [address] [place] HCG Preg Ur Qlon 70-67-6584VNA ( test) Ql (U)NegativeNormalNegativeHilton Head Island HospitalComment on above:Order Comment: Specimen Type: URINE SPECIMENOrdering Facility: [facility] Address:[address] [place], [place] [address]Result Comment: This test is intended to aid in the early detection of . Very dilute urinesamples, as indicated by a low specific gravity, may not contain graphic art sales representative levels of hCG. Thistest detects intact hCG only. This test does [...] for interference by human anti-mouse antibodies (HAMA) inthe specimen. The test provides a presumptive diagnosis for .Performed By: #### 2106-3 ####[facility] LABORATORYCLIA [id number] [facility].[place] [id number] [place] HISTORY PHYSICALon 84-78-1827DWBOGET PHYSICALHNO ID: [id number] Author: QUINCY KANG MD Service: Pulmonary Disease Author Type: Physician Type: H&P Filed: 12/20/2023 10:27 Note Text: UPDATED HISTORY AND PHYSICAL EXAMINATION SERVICE DATE: 12/20/2023 SERVICE TIME: 10 AM SENSITIVE EXAMINATION CONSENT: The sensitive examination was discussed with the Patient or Patient's Authorized Combustion Engineer. As applicable, any other physician, advance practice provider, medical student, or other health professional student that will be observing or involved in the sensitive examination for educational or training purposes was discussed with the Patient or Authorized Combustion Engineer. The Patient or Authorized Combustion Engineer has agreed to proceed with the sensitive [...] Weller DATE: December 20, 2023 TIME: 10:27 AMNormalSalt Lake Behavioral Health HospitalL. pneumophila DNA TARA+probe Ql (Unsp spec)on 03-04-6276Dsuvvswvcv spp Spec Ql TARA+probeNot detectedNormalNot detectedAv HospitalComment on above:Order Comment: Specimen Type: SPECIMEN OBTAINED BY LAVAGEOrdering Facility: [facility] Address: [address] [place], [place] [address]Performed By: #### 29535-2 ####[facility] LABCLIA [id number] [place] [address] [place] AMERICAMicroorganism Spec Culton 56-28-6325Wekbrgdastkwx identified Cx Nom (Unsp spec)CULTURE, AFB: No Acid Fast Bacilli isolated after 42 days AFB STAIN: No acid fast bacilli seen by fluorochrome stainNormalAvon HospitalComment on above:Performed By: #### 91878-8, 580-1, 91061-9 ####[facility] LABCLIA [id number] [address]PNEUMOCYSTIS JIROVECII PCRon 12-20-2023. jiroveci DNA TARA+probe (Unsp spec) [#/Vol]Not detectedNormalPneumocystis jirovecii Not Detected by PCRAvon HospitalComment on above:Order Comment: Specimen Type: SPECIMEN OBTAINED BY LAVAGEOrdering Facility: [facility] Address: [address] [place], [place] [address]Performed By: #### PJPCR ####[facility] LABIA [id number] [address] OF [facility]FAIR[facility]ILLPT panel Coag (PPP)on 12-20-2023 INR Coag (PPP) [Relative time]1.0 {INR}Normal0.9-1.3Avon HospitalComment on above:Order Comment: Specimen Type: BLOOD SPECIMENOrdering Facility: [facility] Address:[address] [place], [place] [address]Result Comment: Vitamin K Antagonist (VKA) Therapeutic Range: INR 2 to 3 (Target INR of 2.5) Note: For patients treated with VKA drugs, such as warfarin, the [place] [employer] 2012 Guideline recommends [...] 2.5 to 3.5 (target INR of 3). Angeilc GH, et al. Chest 2012, 141:7S-47S Keiry RA, et al. JACC 2017, 70: 252-289Performed By: #### 06193-3 ####[facility] LABORATORYIA [id number] [place] [address] [place] AMERICAPT Coag (PPP) [Time]10.6 sNormal9.7-13.0[facility] Comment on above:Order Comment: Specimen Type: BLOOD SPECIMENOrdering Facility: [facility] Address:[address] [place] [address] Performed By: #### 66623-9 ####[facility] [id number] [place] [address] [place] AMERICARespiratory pathogens DNA and RNA panel TARA+probe (Nph)on 86-10-1380Sgiqdipdqz hexon gene TARA+probe Ql (Nph)Not detectedNormalNot detectedAv HospitalComment on above: Order Comment: Specimen Type: SPECIMEN OBTAINED BY LAVAGEOrdering Facility: [facility] Address: [address] [place] [address] Performed By: #### 02834-0 ####[facility] LABIA [id number] [place] [address] [place] C. pneumoniae DNA TARA+probe Ql (Unsp spec)Not detectedNormalNot detectedAvPerry County Memorial HospitalComment on above:Order Comment: Specimen Type: SPECIMEN OBTAINED BY LAVAGEOrdering Facility: [facility] Address: [address] [place], [place] [address]Performed By: #### 96493-0 ####[facility] LABIA [id number] [place] [address] [place] AMERICAFLUAV RNA TARA+probe Ql (Unsp spec)Not detectedNormalNot detectedAv HospitalComment on above:Order Comment: Specimen Type: SPECIMEN OBTAINED BY LAVAGEOrdering Facility: [facility] Address: [address] [place], [place] [address]Performed By: #### 75416-0 ####[facility] LABIA [id number] [address], [place] [address] [place] AMERICAFLUBV RNA TARA+probe Ql (Unsp spec)Not detectedNormalNot detectedAvon HospitalComment on above:Order Comment: Specimen Type: SPECIMEN OBTAINED BY LAVAGEOrdering Facility: [facility] Address: [address] [place], [place] [address]Performed By: #### 65259-6 ####[facility] LABCLIA [id number] [place] [address] [place] AMERICAHCoV 229E+OC43 RNA TARA+probe Ql (Nph)Not detectedNormalNot detectedAvon HospitalComment on above:Order Comment: Specimen Type: SPECIMEN OBTAINED BY LAVAGEOrdering Facility: [facility] Address: [address] [place], [place] [address]Performed By: #### 79965-4 ####[facility] LABCLIA [id number] [place] [address] [place] AMERICAHCoV HKU1 RNA TARA+probe Ql (Unsp spec)Not detectedNormalNot detectedAvon HospitalComment on above:Order Comment: Specimen Type: SPECIMEN OBTAINED BY LAVAGEOrdering Facility: [facility] Address: [address] [place], [place] [address]Performed By: #### 48763-1 ####[facility] LABCLIA [id number] [place] [address] [place] AMERICAHCoV NL63 RNA TARA+non-probe Ql (Nph)Not detectedNormalNot detectedAvon HospitalComment on above:Order Comment: Specimen Type: SPECIMEN OBTAINED BY LAVAGEOrdering Facility: [facility] Address: [address] [place], [place] [address]Performed By: #### 39924-0 ####[facility] LABCLIA [id number] [place] [address] [place] AMERICAHCoV OC43 RNA TARA+probe Ql (Unsp spec)Not detectedNormalNot detectedAvon HospitalComment on above:Order Comment: Specimen Type: SPECIMEN OBTAINED BY LAVAGEOrdering Facility: [facility] Address: [address] [place], [place] [address]Performed By: #### 73922-5 ####[facility] LABCLIA [id number] [place] [address] [place] AMERICAhMPV RNA TARA+probe Ql (Unsp spec)Not detectedNormalNot detectedAvon HospitalComment on above:Order Comment: Specimen Type: SPECIMEN OBTAINED BY LAVAGEOrdering Facility: [facility] Address: [address] [place], [place] [address]Performed By: #### 43394-6 ####[facility] LABCLIA [id number] [place] [address] [place] AMERICAM. pneumoniae DNA TARA+probe Ql (Unsp spec)Not detectedNormalNot detected [facility] Island HospitalComment on above:Order Comment: Specimen Type: SPECIMEN OBTAINED BY LAVAGEOrdering Facility: [facility] Address: [address] [place], [place] [address]Performed By: #### 97097-9 ####[facility] LABCLIA [id number] [place] [address] [place] AMERICAParainfluenza virus 1 RNA TARA+probe Ql (Unsp spec)Not detectedNormalNot detectedAvon HospitalComment on above:Order Comment: Specimen Type: SPECIMEN OBTAINED BY LAVAGEOrdering Facility: [facility] Address: [address] [place], [place] [address]Performed By: #### 32448-0 ####[facility] LABCLIA [id number] [place] [address] [place] AMERICAParainfluenza virus 2 RNA TARA+probe Ql (Unsp spec)Not detectedNormalNot detectedAvon HospitalComment on above:Order Comment: Specimen Type: SPECIMEN OBTAINED BY LAVAGEOrdering Facility: [facility] Address: [address] [place], [place] [address]Performed By: #### 43001-9 ####[facility] LABCLIA [id number] [place] [address] [place] AMERICAParainfluenza virus 3 RNA TARA+probe Ql (Unsp spec)Not detectedNormalNot detectedAvon HospitalComment on above:Order Comment: Specimen Type: SPECIMEN OBTAINED BY LAVAGEOrdering Facility: [facility] Address: [address] [place], [place] [address]Performed By: #### 40182-0 ####[facility] LABCLIA [id number] [place] [address] [place] Parainfluenza virus 4 P gene TARA+probe Ql (Nph)Not detectedNormalNot detected Jess HospitalComment on above:Order Comment: Specimen Type: SPECIMEN OBTAINED BY LAVAGEOrdering Facility: [facility] Address: [address] [place], [place] [address]Performed By: #### 85860-7 ####[facility] LABIA [id number] [place] [address] [place] AMERICARhinovirus 5' UTR RNA TARA+probe Ql (Nph)Not detectedNormalNot detected [facility] HospitalComment on above:Order Comment: Specimen Type: SPECIMEN OBTAINED BY LAVAGEOrdering Facility: [facility] Address: [address] [place], [place] [address]Performed By: #### 66556-1 ####[facility] LABIA [id number] [place] [address] [place] AMERICARSV RNA TARA+probe Ql (Upper resp)Not detectedNormalNot detectedAvon HospitalComment on above:Order Comment: Specimen Type: SPECIMEN OBTAINED BY LAVAGEOrdering Facility: [facility] Address: [address] [place], [place] [address]Performed By: #### 68470-3 ####[facility] LABCLIA [id number] [place] [address] [place] IBLXTWWWYSZ-XqH-3 (COVID-19) RNA TARA+probe Ql (Unsp spec)Not detectedNormalSee commentAvon HospitalComment on above:Order Comment: Specimen Type: SPECIMEN OBTAINED BY LAVAGEOrdering Facility: [facility] Address: [address] [place], [place] [address]Performed By: #### 69752-7 ####[facility] LABCLIA [id number] [address] [place], [place] [address] [place] AMERICABasic metabolic 2000 panelon 89-22-9927Kajfs gap [Moles/Vol]8 mmol/LNormal8-15Av HospitalComment on above:Order Comment: Specimen Type: BLOOD SPECIMENOrdering Facility: [facility] Address:[address] [place], [place] [address]Performed By: #### 91971-3, 95415-2 ####[facility] HOSPITALIA [id number] [place] [address] [place] AMERICACalcium [Mass/Vol]8.4 mg/dLLow8.5-10.2Avon HospitalComment on above:Order Comment: Specimen Type: BLOOD SPECIMENOrdering Facility: [facility] Address:[address] [place], [place] [address]Performed By: #### 19895-6, 87216-6 ####[facility] HOSPITALIA [id number] [place] [address] [place] Chloride [Moles/Vol]109 mmol/EXvrd02-139Wqki HospitalComment on above:Order Comment: Specimen Type: BLOOD SPECIMENOrdering Facility: [facility] Address:[address] [place], [place] [address]Performed By: #### 12164- 2, 24114-5 ####[facility] LABORATORYIA [id number] [place] [address] [place] AMERICACO2 [Moles/Vol]27 mmol/MIshcvu47-14 Jess HospitalComment on above:Order Comment: Specimen Type: BLOOD SPECIMENOrdering Facility: [facility] Address:[address] [place], [place] [address]Performed By: #### 92783-9, 11641-7 ####[facility] LABORATORYCLIA [id number] [facility] [place] [address] [place] AMERICACreatinine [Mass/Vol]0.63 mg/dLNormal0.58-0.96[facility] Comment on above:Order Comment: Specimen Type: BLOOD SPECIMENOrdering Facility: [facility] Address:[address] [place] [address] Performed By: #### 89981-9, 97014-9 ####[facility] LABORATORYIA [id number] [place] [address] [place] Creatinine and Glomerular filtration rate.predicted panel (S/P/Bld)114 mL/min/1.73m???Normal>=60AvPerry County Memorial HospitalComment on above:Order Comment: Specimen Type: BLOOD SPECIMENOrdering Facility: [facility] Address:[address] [place], [place] [address]Result Comment: Estimated Glomerular Filtration Rate (eGFR) is calculated using the 2020 CKD-EPI creatinine equation. This equation utilizes serum creatinine, sex, and age as parameters. The creatinine assay has traceable calibration to isotope dilution-mass spectrometry. Refer to KDIGO guidelines for clinical interpretation. In patients with unstable renal function, e.g. those with acute kidney injury, the eGFR may not accurately reflect actual GFR.Performed By: #### 04452-0, 03110-8 ####[facility] LABORATORYIA [id number] [place] [address] [place] AMERICAGlucose [Mass/Vol]106 mg/nFNuka16-26Nlkp HospitalComment on above:Order Comment: Specimen Type: BLOOD SPECIMENOrdering Facility: [facility] Address:[address] [place], [place] [address]Htqsmm Comment: The [place] [employer] (ADA) provides guidance for [...] Standards of Medical Care in Diabetes 2016, [place] [employer]. Diabetes Care. 2016.39(Suppl 1).Performed By: #### 82338-2, 84376-1 ####[facility] LABORATORYCLIA [id number] [place] [address] [place]APotassium [Moles/Vol]3.5 mmol/LLow3.7-5.1Avon HospitalComment on above:Order Comment: Specimen Type: BLOOD SPECIMENOrdering Facility: [facility] Address:[address] [place], [place] [address]Performed By: #### 69243-9, 85411-2 ####[facility] HOSPITALIA [id number] [place] [address] [place] Sodium [Moles/Vol]144 mmol/VPholjj375-734Aohq HospitalComment on above:Order Comment: Specimen Type: BLOOD SPECIMENOrdering Facility: [facility] Address:[address] [place], [place] [address]Performed By: #### 18489- 2, 53787-2 ####[facility] HOSPITALIA [id number] [place] [address] [place] AMERICAUrea nitrogen [Mass/Vol]10 mg/dL Normal7-21Av HospitalComment on above:Order Comment: Specimen Type: BLOOD SPECIMENOrdering Facility: [facility] Address:[address] [place], [place] [address]Performed By: #### 87585-8, 60278-0 ####[facility] HOSPITALIA [id number] [place] [address] [place] [facility]FAIRHILLCBC panel Auto (Bld)on 33-00-7868Uezylyhemgi distribution width (RBC) [Ratio]13.2 %Akfrhw81.5-15.0Av HospitalComment on above:Order Comment: Specimen Type: BLOOD SPECIMENOrdering Facility: [facility] Address:[address] [place], [place] [address]Performed By: #### 01395-9 ####[facility] HOSPITALIA [id number] [place] [address] [place] [facility]-FAIRHILLHematocrit (Bld) [Volume fraction]40.5 %Qubzef12.0-46.0 Jess HospitalComment on above:Order Comment: Specimen Type: BLOOD SPECIMENOrdering Facility: [facility] Address:[address] [place], [place] [address]Performed By: #### 54926-6 ####[facility] HOSPITALIA [id number] [place] [address] [place] Hemoglobin (Bld) [Mass/Vol]13.6 g/lWWosipa07.5-15.5Avon HospitalComment on above:Order Comment: Specimen Type: BLOOD SPECIMENOrdering Facility: [facility] Address:[address] [place], [place] [address]Performed By: #### 42308-0 ####[facility] [id number] [place] [address] [place] AMERICAMCH (RBC) [Entitic mass]31.8 pg Iacjdh80.0-34.0[facility] HospitalComment on above:Order Comment: Specimen Type: BLOOD SPECIMENOrdering Facility: [facility] Address:[address] [place], [place] [address]Performed By: #### 59408-0 ####[facility] HOSPITALIA [id number] [place] [address] [place] MCHC (RBC) [Mass/Vol]33.6 g/xQNccjit00.5-36.0Av HospitalComment on above:Order Comment: Specimen Type: BLOOD SPECIMENOrdering Facility: [facility] Address:[address] [place], [place] [address]Performed By: #### 40727- 2 ####[facility] HOSPITALIA [id number] [place] [address] [place] AMERICAMCV (RBC) [Entitic vol]94.6 zZImiwcr26.0-100.0 [facility] HospitalComment on above:Order Comment: Specimen Type: BLOOD SPECIMENOrdering Facility: [facility] Address:[address] [place], [place] [address]Performed By: #### 71123-2 ####[facility] LABORATORYCLIA [id number] [place] [address] [place] Nucleated RBC (Bld) [#/Vol]10*3/uLNormal<0.01Av HospitalComment on above:Order Comment: Specimen Type: BLOOD SPECIMENOrdering Facility: [facility] Address:[address] [place], [place] [address]Performed By: #### 68264- 2 ####[facility] HOSPITALIA [id number] [facility] [place] [address] [place] [facility]-FAIRHILLPlatelet mean volume (Bld) [Entitic vol]9.0 fL Normal9.0-12.7[facility] HospitalComment on above:Order Comment: Specimen Type: BLOOD SPECIMENOrdering Facility: [facility] Address:[address] [place], [place] [address]Performed By: #### 82971-1 ####[facility] HOSPITALIA [id number] [facility] [place] [address] [place] Platelets (Bld) [#/Vol]285 10*3/fFZygkiy397-927Tujw HospitalComment on above: Order Comment: Specimen Type: BLOOD SPECIMENOrdering Facility: [facility] Address:[address] [place], [place] [address]Performed By: #### 73208- 2 ####[facility] LABORATORYIA [id number] [place] [address] [place] [facility]-FAIRHILLRBC (Bld) [#/Vol]4.28 10*6/uLNormal3.90-5.20 [facility] HospitalComment on above:Order Comment: Specimen Type: BLOOD SPECIMENOrdering Facility: [facility] Address:[address] [place], [place] [address]Performed By: #### 92805-0 ####[facility] LABORATORYCLIA [id number] [place] [address] [facility] (Bld) [#/Vol]6.04 10*3/uLNormal3.70-11.00Avon HospitalComment on above:Order Comment: Specimen Type: BLOOD SPECIMENOrdering Facility: [facility] Address:[address] [place], [place] [address]Shwbtqkot By: #### 52839- 2 ####[facility] LABORATORYCLIA [id number] [place] [address] [facility]ENTERCONSULT [id number] ID: [id number] Author: QUINCY KANG MD Service: Pulmonary Disease [...] infection this year. Most recently treated at [facility] on 10/28. Since that time she has continued to feel poorly with cough, shortness of breath, fatigue. Not producing any phlegm. Dr. Becerril requested a bronchoscopy with [facility] BAL. They [...] Mosaic attenuation in the bilateral lung 10/2023 06/2022 PAST MEDICAL HISTORY Diagnosis Date ASCUS favor [...] Sclerosis Mother Coronary Artery Disease Maternal Grandfather [place] age 36 Coronary Artery Disease Paternal Grandfather [...] FOR 5 DAYSDisp: Rfl: (more content not included)...NormalAvon [facility] 12 leadon 27-37-0800Ijgrzccjtrn Rate : 101 BPM Atrial Rate : 101 BPM P-R Interval : 168 ms QRS Duration : 102 ms Q-T Interval : 354 ms QTC Calculation(Bazett) : 459 ms Calculated P Perryman : 59 degrees Calculated R Perryman : -38 degrees Calculated T Perryman : 30 degrees Sinus tachycardia Left axis deviation Minimal voltage criteria for LVH, may be normal variant Cannot rule out Anterior infarct , age undetermined Abnormal ECG 1937 NO STEMI Confirmed by FLAQUITO RODRIGUEZ, SAEED ([id number]), pictures editor SHERIN DELACRUZ ([id number]) on 12/19/2023 9:38:42 AM NAME : CELSO WELLER PID : [id number] : 1980 Gender : Female Race : ORD : [id number] Procedure Date : Dec 18 2023 19:31:27 Edit Date : Dec 19 2023 09:38:44 Diagnosis: Sinus tachycardia Left axis deviation Minimal voltage criteria for LVH, may be normal variant Cannot rule out Anterior infarct , age undetermined Abnormal ECG 1935 NO STEMI Confirmed by SAEED HUDDLESTON MD ([id number]), pictures editor SHERIN DELACRUZ ([id number]) on 12/19/2023 9:38:42 AM Test Reason : Chest Pain Location : 302 : ED ED Overread By : SAEED HUDDLESTON MD Edited By : SHERIN DELACRUZ Referred By : , Acquired by : [id number],CCFRadiology, Radiologist, MD - 12/19/2023 Ventricular Rate : 101 BPM Atrial Rate : 101 BPM P-R Interval : 168 ms QRS Duration : 102 ms Q-T Interval : 354 ms QTC Calculation(Bazett) : 459 ms Calculated P Perryman : 59 degrees Calculated R Perryman : -38 degrees Calculated T Perryman : 30 degrees Sinus tachycardia Left axis deviation Minimal voltage criteria for LVH, may be normal variant Cannot rule out Anterior infarct , age undetermined Abnormal ECG 1937 NO STEMI Confirmed by SAEED HUDDLESTON MD ([id number]), pictures editor SHERIN DELACRUZ ([id number]) on 12/19/2023 9:38:42 AM NAME : CELSO WELLER PID : [id number] : 1980 Gender : Female Race : ORD : [id number] Procedure Date : Dec 18 2023 19:31:27 Edit Date : Dec 19 2023 09:38:44 Diagnosis: Sinus tachycardia Left axis deviation Minimal voltage criteria for LVH, may be normal variant Cannot rule out Anterior infarct , age undetermined Abnormal ECG 1937 NO STEMI Confirmed by SAEED HUDDLESTON MD ([id number]), pictures editor SHERIN DELACRUZ ([id number]) on 12/19/2023 9:38:42 AM Test Reason : Chest Pain Location : 302 : ED ED Overread By : SAEED HUDDLESTON MD Edited By : SHERIN DELACRUZ Referred By : , Acquired by : [id number], NOMS HealthcareECG 12 leadOrdered By: Radiologist Radiology on 13-35-1229[facility] Work Phone: ED NOTEon 02-04-5918NI NOTEHNO ID: [id number] Author: SIMRAN BOB RN Service: ? Author Type: Registered Nurse Type: ED Notes Filed: 12/19/2023 07:10 Note Text: [facility] to [facility]ED [facility] NOTEon 02-80-0746LC [facility] NOTEHNO ID: [id number] Author: BETTY HORTON MD Service: Emergency Medicine [...] She states she was told by her client service administrator that she needs to have a bronchoscopy [...] 04/02/2017 HYSTEROSCOPY BX W/WO DANDC 04/02/2017 with JACKIEDC PAST SURGICAL HISTORY OF 01/16/12 left axillary ln biopsy/ had 2012 stem cell tx has port removal VAGINOSCOPY 10/12/14 negative path VATS MEDIASTINAL LYMPHADENECTOMY 10/2012 left VATS FAMILY HISTORY Problem Relation Age of Onset Multiple Sclerosis Mother Coronary Artery Disease Maternal Grandfather [place] age 36 Coronary Artery Disease Paternal Grandfather [...] result in uninfected indivi (more content not included)...NormalAvPerry County Memorial HospitalHIGH SENSITIVITY TROPONIN T (SECOND)on 12-19-2023 Troponin T.cardiac High sensitivity method [Mass/Vol]13 ng/LHigh<12[facility] Comment on above:Order Comment: Specimen Type: BLOOD SPECIMENOrdering Facility: [facility] Address:[address] [place] [address] [place] [address] Performed By: #### [id number] ####[facility] LABORATORYCLIA [id number] [facility] [place] [address] [facility] CENTERHISTORY PHYSICALon 66-93-8119MLGURXF PHYSICALHNO ID: [id number] Author: CAL BLACKMON MD Service: Hospital Medicine Author Type: Physician Type: H&P Filed: 12/19/2023 07:04 Note Text: DEPARTMENT OF HOSPITAL MEDICINE HISTORY AND PHYSICAL EXAM SERVICE DATE: 12/19/2023 SERVICE TIME: 1:53 AM Primary Care Physician: Bee Vail MD NIGHT AND WEEKEND COVERAGE: [employer] COVERAGE: Days: [phone], please contact via [employer] Nights: - floor: please page [facility] Hospitalist night cover [phone] - 4W: please page [facility] Hospitalist night cover #[phone] - 5th floor: please page [facility] Hospitalist night cover #[phone] - SDU (17:00 - 19:00): Please page #[phone] - SDU (19:00 - 07:00): Please call [facility] at [phone] Subjective CHIEF COMPLAINT: Recurrent pneumonia and new oxygen requirement HPI: This is a 43 year old female with history of Lymphoma (completed Immunotherapy in September 2023), pulmonary embolism in 2012 on Xarelto, Depression/Anxiety, GERD, chemotherapy-induced neuropathy, recurrent pneumonia (most recent episode on October, treated at [facility]) with persistent shortness of breath, new oxygen requirements 3 L with exertion, ground glass changes on most recent PET/CT who was sent in to the ED by her client service administrator to be admitted in the hospital for [...] 04/02/2017 HYSTEROSCOPY BX W/WO DANDC 04/02/2017 with DANSC PAST SURGICAL HISTORY OF 01/16/12 left axillary ln biopsy/ had 2012 stem cell tx has port removal VAGINOSCOPY 10/12/14 negative path VATS MEDIASTINAL LYMPHADENECTOMY 10/2012 left VATS FAMILY HISTORY Problem Relation Age of Onset Multiple Sclerosis Mother Coronary Artery Disease Maternal Grandfather [place] age 36 Coronary Artery Disease Paternal Grandfather [...] (HCC) (POA: Yes) Autologou (more content not included)...NormalAvon HospitalProcalcitonin SerPl-mCncon 37-16-7569Pyucrpazspzuh [Mass/Vol]ng/mLNormal<0.09[facility] Comment on above:Order Comment: Specimen Type: BLOOD SPECIMENOrdering Facility: [facility] Address:[address] [place] [address] [place], [place] [address]Result Comment: For a guided interpretation of test results, please visit the Change in Procalcitonin Calculator, [email or web address].Performed By: #### 49334-6, 82957-5 ####[facility] LABORATORYCLIA [id number] [place] [address] [place] [facility]IR[facility]ILLCB W Auto Differential panel (Bld)on 02-63-1576Eedaaajhf (Bld) [#/Vol]10*3/uLNormal<0.11Avon HospitalComment on above:Order Comment: Specimen Type: BLOOD SPECIMENOrdering Facility: [facility] Address:[address] [place] [address] Performed By: #### 60731-1 ####[facility] LABORATORYIA [id number] [place] [address] [place] AMERICABasophils/100 WBC (Bld)0.3 %NormalAv HospitalComment on above:Order Comment: Specimen Type: BLOOD SPECIMENOrdering Facility: [facility] Address:[address] [place], [place] [address]Performed By: #### 13742-0 ####[facility] HOSPITALIA [id number] [place] [address] [place] OF [facility]FAIRHILLDifferential cell count method Nom (Bld)AutoNormalAvo Hospital Comment on above:Order Comment: Specimen Type: BLOOD SPECIMENOrdering Facility: [facility] Address:[address] [place] [address] Performed By: #### 36323-2 ####[facility] LABORATORYIA [id number] [place] [address] [place] AMERICAEosinophils (Bld) [#/Vol]0.21 10*3/uLNormal<0.46Avon HospitalComment on above:Order Comment: Specimen Type: BLOOD SPECIMENOrdering Facility: [facility] Address:[address] [place], [place] [address]Performed By: #### 19181-9 ####[facility] LABORATORYCLIA [id number] [place] [address] [place] AMERICAEosinophils/100 WBC (Bld)3.2 %NormalAv HospitalComment on above:Order Comment: Specimen Type: BLOOD SPECIMENOrdering Facility: [facility] Address:[address] [place] [address] Performed By: #### 59302-6 ####[facility] HOSPITALIA [id number] [place] [address] [place] AMERICAErythrocyte distribution width (RBC) [Ratio]13.1 %Ypgbuw14.5-15.0Avon HospitalComment on above:Order Comment: Specimen Type: BLOOD SPECIMENOrdering Facility: [facility] Address:[address] [place], [place] [address]Performed By: #### 39891-2 ####[facility] [id number] [place] [address] [place] AMERICAHematocrit (Bld) [Volume fraction] 43.2 %Oloqcx44.0-46.0Av HospitalComment on above:Order Comment: Specimen Type: BLOOD SPECIMENOrdering Facility: [facility] Address:[address] [place], [place] [address]Performed By: #### 09604-6 ####[facility] HOSPITALIA [id number] [place] [address] [place] AMERICAHemoglobin (Bld) [Mass/Vol]14.1 g/rXYwrsdi24.5-15.5Avon HospitalComment on above:Order Comment: Specimen Type: BLOOD SPECIMENOrdering Facility: [facility] Address:[address] [place], [place] [address]Performed By: #### 02846-3 ####[facility] HOSPITALIA [id number] [place] [address] [place] AMERICAImmature granulocytes (Bld) [#/Vol]10*3/uLNormal<0.10Avon HospitalComment on above:Order Comment: Specimen Type: BLOOD SPECIMENOrdering Facility: [facility] Address:[address] [place], [place] [address]Performed By: #### 49909- 8 ####[facility] [id number] [facility] [place] [address] [place] AMERICAImmature granulocytes/100 WBC (Bld)0.3 %Normal [facility] HospitalComment on above:Order Comment: Specimen Type: BLOOD SPECIMENOrdering Facility: [facility] Address:[address] [place], [place] [address]Performed By: #### 02623-7 ####[facility] LABORATORYIA [id number] [place] [address] [place] Lymphocytes (Bld) [#/Vol]2.28 10*3/uLNormal1.00-4.00Av HospitalComment on above:Order Comment: Specimen Type: BLOOD SPECIMENOrdering Facility: [facility] Address:[address] [place], [place] [address]Performed By: #### 07923-9 ####[facility] [id number] [place] [address] [place] AMERICALymphocytes/100 WBC (Bld)34.8 % NormalHilton Head Island HospitalComment on above:Order Comment: Specimen Type: BLOOD SPECIMENOrdering Facility: [facility] Address:[address] [place], [place] [address]Performed By: #### 78032-6 ####[facility] [id number] [place] [address] [facility] (RBC) [Entitic mass]31.2 huNuuyud00.0-34.0Av HospitalComment on above:Order Comment: Specimen Type: BLOOD SPECIMENOrdering Facility: [facility] Address:[address] [place], [place] [address]Performed By: #### 92080- 8 ####[facility] H[facility]PITALIA [id number] [place] [address] [facility] (RBC) [Mass/Vol]32.6 g/sSXcmtfb58.5-36.0 Jess HospitalComment on above:Order Comment: Specimen Type: BLOOD SPECIMENOrdering Facility: [facility] Address:[address] [place], [place] [address]Performed By: #### 82677-9 ####[facility] H[facility]PITALIA [id number] [place] [address] [place] AMERICAMCV (RBC) [Entitic vol]95.6 iIBpvtxe86.0-100.0Av HospitalComment on above:Order Comment: Specimen Type: BLOOD SPECIMENOrdering Facility: [facility] Address:[address] [place], [place] [address]Performed By: #### 47549- 8 ####[facility]PITALIA [id number] [place] [address] [place] AMERICAMonocytes (Bld) [#/Vol]0.74 10*3/uLNormal<0.87 [facility] HospitalComment on above:Order Comment: Specimen Type: BLOOD SPECIMENOrdering Facility: [facility] Address:[address] [place], [place] [address]Performed By: #### 59221-8 ####[facility] H[facility]PITALIA [id number] [place] [address] [place] Monocytes/100 WBC (Bld)11.3 %NormalAv HospitalComment on above:Order Comment: Specimen Type: BLOOD SPECIMENOrdering Facility: [facility] Address:[address] [place], [place] [address]Performed By: #### 78841-6 ####[facility] LABORATORYIA [id number] [place] [address] [place] AMERICANeutrophils (Bld) [#/Vol]3.28 10*3/uLNormal1.45-7.50[facility] HospitalComment on above:Order Comment: Specimen Type: BLOOD SPECIMENOrdering Facility: [facility] Address:[address] [place], [place] [address]Performed By: #### 72516-6 ####[facility] LABORATORYIA [id number] [place] [address] [place] AMERICANeutrophils/100 WBC (Bld)50.1 %NormalAv HospitalComment on above:Order Comment: Specimen Type: BLOOD SPECIMENOrdering Facility: [facility] Address:[address] [place], [place] [address]Performed By: #### 96431-0 ####[facility]PITALIA [id number] [place] [address] [place] AMERICANucleated RBC (Bld) [#/Vol]10*3/uLNormal<0.01Av Hospital Comment on above:Order Comment: Specimen Type: BLOOD SPECIMENOrdering Facility: [facility] Address:[address] [place] [address] Performed By: #### 43402-2 ####[facility]PITALIA [id number] [place] [address] [place] AMERICANucleated RBC/100 WBC (Bld) [Ratio]0.0 /100 WBCNormalAvon HospitalComment on above:Order Comment: Specimen Type: BLOOD SPECIMENOrdering Facility: [facility] Address:[address] [place], [place] [address]Performed By: #### 05631-5 ####[facility] [id number] [place] [address] [place] AMERICAPlatelet mean volume (Bld) [Entitic vol]9.2 fLNormal 9.0-12.7Avon HospitalComment on above:Order Comment: Specimen Type: BLOOD SPECIMENOrdering Facility: [facility] Address:[address] [place], [place] [address]Performed By: #### 13070-1 ####[facility] H[facility]PITALIA [id number] [place] [address] [place] Platelets (Bld) [#/Vol]340 10*3/bSBxdfzd603-993Aeln HospitalComment on above: Order Comment: Specimen Type: BLOOD SPECIMENOrdering Facility: [facility] Address:[address] [place], [place] [address]Performed By: #### 92807- 8 ####[facility] H[facility]PITALIA [id number] [place] [address] [place] AMERICARBC (Bld) [#/Vol]4.52 10*6/uLNormal3.90-5.20 [facility] HospitalComment on above:Order Comment: Specimen Type: BLOOD SPECIMENOrdering Facility: [facility] Address:[address] [place], [place] [address]Performed By: #### 85381-3 ####[facility] LABORATORYIA [id number] [place] [address] [place] AMERICAWBC (Bld) [#/Vol]6.55 10*3/uLNormal3.70-11.00[facility] HospitalComment on above:Order Comment: Specimen Type: BLOOD SPECIMENOrdering Facility: [facility] Address:[address] [place], [place] [address]Performed By: #### 79225- 8 ####[facility]OSPITALIA [id number] [facility] [place] [address] [place] AMERICAComprehensive metabolic 2000 panelon 12-18-2023 Albumin [Mass/Vol]4.2 g/dLNormal3.9-4.9[facility] HospitalComment on above:Order Comment: Specimen Type: BLOOD SPECIMENOrdering Facility: [facility] Address:[address] [place], [place] [address]Performed By: #### 67879- 8 ####[facility] LABORATORYIA [id number] [facility] [place] [address] [place] AMERICAALP [Catalytic activity/Vol]71 U/CSviddo66-536 [facility] HospitalComment on above:Order Comment: Specimen Type: BLOOD SPECIMENOrdering Facility: [facility] Address:[address] [place], [place] [address]Performed By: #### 05936-8 ####[facility] LABORATORYIA [id number] [place] [address] [place] AMERICAALT [Catalytic activity/Vol]46 U/LHigh7-38[facility] HospitalComment on above:Order Comment: Specimen Type: BLOOD SPECIMENOrdering Facility: [facility] Address:[address] [place], [place] [address]Performed By: #### 20332- 8 ####[facility]PITALIA [id number] [place] [address] [place] AMERICAAnion gap [Moles/Vol]9 mmol/LNormal8-15Av HospitalComment on above:Order Comment: Specimen Type: BLOOD SPECIMENOrdering Facility: [facility] Address:[address] [place], [place] [address]Performed By: #### 74386-7 ####[facility]ITALIA [id number] [place] [address] [place] AMERICAAST [Catalytic activity/Vol]45 U/HUqwl69-09Nroc HospitalComment on above:Order Comment: Specimen Type: BLOOD SPECIMENOrdering Facility: [facility] Address:[address] [place], [place] [address]Performed By: #### 75623-1 ####[facility]PITALIA [id number] [place] [address] [place] AMERICABilirubin [Mass/Vol]0.2 mg/dLNormal0.2-1.3[facility] Comment on above:Order Comment: Specimen Type: BLOOD SPECIMENOrdering Facility: [facility] Address:[address] [place] [address] Performed By: #### 62527-4 ####[facility]PITALIA [id number] [place] [address] [place] AMERICACalcium [Mass/Vol] 9.7 mg/dLNormal8.5-10.2Avon HospitalComment on above:Order Comment: Specimen Type: BLOOD SPECIMENOrdering Facility: [facility] Address:[address] [place], [place] [address]Performed By: #### 11099-0 ####[facility]PITALIA [id number] [place] [address] [place] AMERICAChloride [Moles/Vol]106 mmol/UZltejt52-714Icgm HospitalComment on above:Order Comment: Specimen Type: BLOOD SPECIMENOrdering Facility: [facility] Address:[address] [place] [address] Performed By: #### 03705-5 ####[facility] LABORATORYCLIA [id number] [place] [address] [place] AMERICACO2 [Moles/Vol]27 mmol/DZdrboq78-28Znak HospitalComment on above:Order Comment: Specimen Type: BLOOD SPECIMENOrdering Facility: [facility] Address:[address] [place], [place] [address]Performed By: #### 26077-6 ####[facility]PITALIA [id number] [place] [address] [place] AMERICACreatinine [Mass/Vol]0.72 mg/dLNormal0.58-0.96Av Hospital Comment on above:Order Comment: Specimen Type: BLOOD SPECIMENOrdering Facility: [facility] Address:[address] [place] [address] Performed By: #### 99213-5 ####[facility]PITALIA [id number] [place] [address] [place] AMERICACreatinine and Glomerular filtration rate.predicted panel (S/P/Bld)108 mL/min/1.73m???Normal >=60Av HospitalComment on above:Order Comment: Specimen Type: BLOOD SPECIMENOrdering Facility: [facility] Address:[address] [place], [place] [address]Result Comment: Estimated Glomerular Filtration Rate (eGFR) is calculated using the 2020 CKD-EPI creatinine equation. This equation utilizes serum creatinine, sex, and age as parameters. The creatinine assay has traceable calibration to isotope dilution-mass spectrometry. Refer to KDIGO guidelines for clinical interpretation. In patients with unstable renal function, e.g. those with acute kidney injury, the eGFR may not accurately reflect actual GFR.Performed By: #### 86982-2 ####[facility] LABORATORYCLIA [id number] [place] [address] [place] Glucose [Mass/Vol]97 mg/pLEwrdfi94-20Dhqq HospitalComment on above:Order Comment: Specimen Type: BLOOD SPECIMENOrdering Facility: [facility] Address:[address] [place], [place] [address]Result Comment: The [place] Diabetes Association (ADA) provides guidance for cutoff values for fast ing glucose and random glucose. The ADA defines [...] Standards of Medical Care in Diabetes 2016, [place] Diabetes Association. Diabetes Care. 2016.39(Suppl 1).Performed By: #### 01909-2 ####[facility] LABORATORYCLIA [id number] [place] [address] [place] AMERICAPotassium [Moles/Vol]4.1 mmol/LNormal3.7-5.1Avon HospitalComment on above:Order Comment: Specimen Type: BLOOD SPECIMENOrdering Facility: [facility] Address:[address] [place], [place] [address]Performed By: #### 32280-9 ####[facility] LABORATORYIA [id number] [place] [address] [place] AMERICAProtein [Mass/Vol] 6.8 g/dLNormal6.3-8.0Av HospitalComment on above:Order Comment: Specimen Type: BLOOD SPECIMENOrdering Facility: [facility] Address:[address] [place], [place] [address]Performed By: #### 55987-2 ####[facility] LABORATORYIA [id number] [place] [address] [place] AMERICASodium [Moles/Vol]142 mmol/STbsipj653-563Qxto HospitalComment on above:Order Comment: Specimen Type: BLOOD SPECIMENOrdering Facility: [facility] Address:[address] [id number] Performed By: #### 75121-6 ####[facility] LABORATORYCLIA [id number] [place] [address] [place] AMERICAUrea nitrogen [Mass/Vol]9 mg/dLNormal7-21Av HospitalComment on above:Order Comment: Specimen Type: BLOOD SPECIMENOrdering Facility: [facility] Address:[address] [place], [place] [address] [id number] By: #### 74183-6 ####[facility] LABORATORYCLIA [id number] [place] [address] [place] AMERICAECG COMPLETEon 39-66-4113ALV COMPLETEVentricular Rate : 101 BPM Atrial Rate : 101 BPM P-R Interval : 168 ms QRS Duration : 102 ms Q-T Interval : 354 ms QTC Calculation(Bazett) : 459 ms Calculated P Perryman : 59 degrees Calculated R Perryman : -38 degrees Calculated T Perryman : 30 degrees Sinus tachycardia Left axis deviation Minimal voltage criteria for LVH, may be normal variant Cannot rule out Anterior infarct , age undetermined Abnormal ECG 1937 NO STEMI Confirmed by SAEED HUDDLESTON MD ([id number]), pictures editor SHERIN DELACRUZ ([id number]) on 12/19/2023 9:38:42 AM NAME : CELSO WELLER PID : [id number] : 1980 Gender : Female Race : ORD : [id number] Procedure Date : Dec 18 2023 19:31:27 Edit Date : Dec 19 2023 09:38:44 Diagnosis: Sinus tachycardia Left axis deviation Minimal voltage criteria for LVH, may be normal variant Cannot rule out Anterior infarct , age undetermined Abnormal ECG 1935 NO STEMI Confirmed by SAEED HUDDLESTON MD ([id number]), pictures editor SHERIN DELACRUZ ([id number]) on 12/19/2023 9:38:42 AM Test Reason : Chest Pain Location : 302 : ED ED Overread By : SAEED HUDDLESTON MD Edited By : SHERIN DELACRUZ Referred By : , Acquired by : [id number],NormalAvon HospitalED NOTEon 01-63-5602NU NOTEHNO ID: [id number] Author: EDILMA NIELSON, RN Service: ? Author Type: Registered Nurse [...] fevers at home. Denies N/V/D. VSS in triage.NormalAvon HospitalED Triage Noteon 60-72-6560TO Triage NoteHNO ID: [id number] Author: SAEED HUDDLESTON MD Service: Emergency Medicine [...] AUTO DIFF ECG COMPLETE SIGNATURE: Saeed Huddleston MDMarcum and Wallace Memorial HospitalHIGH SENSITIVITY TROPONIN T (INITIAL)on 21-08-0342Fzstgxdg T.cardiac High sensitivity method [Mass/Vol]16 ng/LHigh<12Avon HospitalComment on above:Order Comment: Specimen Type: BLOOD SPECIMEN [facility] Address: [address] [place], [place] [address]Sqssqpygg By: #### [id number] #### [facility] CLIA [id number] [place] [address] [place] AMERICAXR CHEST 2V FRONTAL/LATon 61-56-5270VE CHEST 2V FRONTAL/LAT* * *Final Report* * * DATE OF [...] Similar chronic lung changes without acute abnormality. [employer] Reservations: PSCB Transcribe Date/Time: Dec 18 2023 9:08P Dictated by : JOSE CHAHAL MD This examination was interpreted and the report reviewed and electronically signed by: JOSE CHAHAL MD on Dec 18 2023 9:14PM EST [id number]_[id number] Health [facility] PET/CT SKULL-THIGH SUBQon 12-15-2023 * * *Final Report* * * DATE [...] * Uptake Time: 44 minutes * Radiopharmaceutical: S05-Kdwrcgyuqtwauubhhc (FDG) COMPARISON: 05/20/2023 CORRELATION: Outside CT chest [...] any questions regarding this interpretation, please call [phone]. If you are unable to reach us at the number above, please feel free to contact [facility] at [phone]. [id number]^AGFA_IDC^SI^ACNCCFRadiology, Radiologist, - 12/15/2023 * * *Final Report* [...] * Uptake Time: 44 minutes * Radiopharmaceutical: W07-Efeuxurzucngfcvgjp (FDG) COMPARISON: 05/20/2023 CORRELATION: Outside CT chest [...] report reviewed and electronically signed by: PETER CHIDLS MD on Dec 15 2023 7:38PM EST Thank you for allowing us to participate in the care of your patient. Should there be any questions regarding this interpretation, please call [phone]. If you are unable to reach us at the number above, please feel free to contact [facility] eRadiology at [phone]. [id number]^AGFA_IDC^SI^ACN [facility] PET/CT SKULL-THIGH SUBQOrdered By: Radiologist Radiology on 28-01-4043WVTEOzarks Community Hospital Work Phone: GLUCOSE, BLOOD (POC)on 69-14-7898Aqirkoi [Mass/Vol]87 mg/dL74 - 99 mg/dLSelect Medical Cleveland Clinic Rehabilitation Hospital, Edwin ShawComment on above:Location:[facility], [address] [place] [address] , [place], [place], [facility] The Accu-Chek Inform II glucose meter has [...] blood gas instrument) in the above situations. [facility] PET/CT SKULL-THIGH SUBQon 21-33-9250Exobjwgeu Study observation (narrative)[facility] HealthcareNo Panel Informationon 11-28-2023 Interpretation and review of laboratory resultsAbnormalNOPhelps Health HealthcarePNEUMOCOCCAL AB (23 SEROTYPE)on 11-28-2023S. pneumoniae Jamaican type 1 IgG IA (S) [Mass/Vol]<0.1Low1.3 - PINF ug/mLNOMS HealthcareS. pneumoniae Jamaican type 10A IgG IA (S) [Mass/Vol]1.4 ug/mL1.3 - PINF ug/mLNOMS HealthcareS. pneumoniae Jamaican type 11A IgG IA (S) [Mass/Vol]<0.1Low1.3 - PINF ug/mLNOMS HealthcareS. pneumoniae Jamaican type 12F IgG IA (S) [Mass/Vol]0.2 ug/mLLow1.3 - PINF ug/mLNOMS HealthcareS. pneumoniae Jamaican type 14 IgG IA (S) [Mass/Vol]0.2 ug/mLLow1.3 - PINF ug/mLNOMS HealthcareS. pneumoniae Jamaican type 15B IgG IA (S) [Mass/Vol]0.3 ug/mLLow1.3 - PINF ug/mLNOMS HealthcareS. pneumoniae Jamaican type 17F IgG IA (S) [Mass/Vol]0.1 ug/mLLow1.3 - PINF ug/mLNOMS HealthcareS. pneumoniae Jamaican type 18C IgG IA (S) [Mass/Vol]0.4 ug/mLLow1.3 - PINF ug/mLNOMS HealthcareS. pneumoniae Jamaican type 19A IgG IA (S) [Mass/Vol]1.0 ug/mLLow1.3 - PINF ug/mLNOMS HealthcareS. pneumoniae Jamaican type 19F IgG IA (S) [Mass/Vol]0.9 ug/mLLow1.3 - PINF ug/mLNOMS HealthcareS. pneumoniae Jamaican type 2 IgG IA (S) [Mass/Vol]1.4 ug/mL1.3 - PINF ug/mLNOMS HealthcareS. pneumoniae Jamaican type 20A IgG IA (S) [Mass/Vol]10.5 ug/mL1.3 - PINF ug/mLNOMS HealthcareS. pneumoniae Jamaican type 22F IgG IA (S) [Mass/Vol]1.2 ug/mLLow1.3 - PINF ug/mLNOMS Healthcare S. pneumoniae Jamaican type 23F IgG IA (S) [Mass/Vol]0.1 ug/mLLow1.3 - PINF ug/mL NOMS HealthcareS. pneumoniae Jamaican type 3 IgG IA (S) [Mass/Vol]0.3 ug/mLLow1.3 - PINF ug/mLNOMS HealthcareS. pneumoniae Jamaican type 33F IgG IA (S) [Mass/Vol] 2.7 ug/mL1.3 - PINF ug/mLNOMS HealthcareComment on above:*This test was developed and its performance characteristics determined by [employer]. It has not been cleared or approved by the U.S. Food and Drug Administration. FLAG Interpretation: A = Abnormal, H = High, L = Low S. pneumoniae Jamaican type 4 IgG IA (S) [Mass/Vol]0.1 ug/mLLow1.3 - PINF ug/mL NOMS HealthcareS. pneumoniae Jamaican type 5 IgG IA (S) [Mass/Vol]0.1 ug/mLLow1.3 - PINF ug/mLNOMS HealthcareS. pneumoniae Jamaican type 6B IgG IA (S) [Mass/Vol] <0.1Low1.3 - PINF ug/mLNOMS HealthcareS. pneumoniae Jamaican type 7F IgG IA (S) [Mass/Vol]0.5 ug/mLLow1.3 - PINF ug/mLNOMS HealthcareS. pneumoniae Jamaican type 8 IgG IA (S) [Mass/Vol]0.7 ug/mLLow1.3 - PINF ug/mLNOMS HealthcareS. pneumoniae Jamaican type 9N IgG IA (S) [Mass/Vol]0.2 ug/mLLow1.3 - PINF ug/mLNOMS Healthcare S. pneumoniae Jamaican type 9V IgG IA (S) [Mass/Vol]<0.1Low1.3 - PINF ug/mLNOMS HealthcarePerformed at: 02 - [place] [address] [address], [address], [place] [id number] [employer] Teacher: MANUELITO Wong PhDBC, Phone: [phone]-jkjapo cells (CD4) counton [id number] (Bld) [#/Vol]0.0 10*3/uLNOMS HealthcareBasophils/100 WBC (Bld)0 %Not Estab.[facility] HealthcareCD3+CD4+ (T4 helper) cells (Bld) [#/Vol] 301 /uEPfj356 - 1519 /uLNOMS HealthcareCD3+CD4+ (T4 helper) cells/100 cells (Bld)18.8 %Low30.8 - 58.5 %[facility] HealthcareEosinophils (Bld) [#/Vol]0.1 10*3/uL [facility] HealthcareEosinophils/100 WBC (Bld)1 %Not Estab.[facility] HealthcareErythrocyte distribution width (RBC) [Ratio]13.8 %11.7 - 15.4 %[facility] HealthcareHematocrit (Bld) [Volume fraction]46.2 %34.0 - 46.6 %[facility]OMS HealthcareHemoglobin (Bld) [Mass/Vol]14.3 g/dL11.1 - 15.9 g/dLNOPA HealthcareImmature granulocytes (Bld) [#/Vol]0.1 10*3/uLNOMS HealthcareImmature granulocytes/100 WBC (Bld)1 %Not Estab.NOMS HealthcareLymphocytes (Bld) [#/Vol]1.6 10*3/uLNOMS Healthcare Lymphocytes/100 WBC (Bld)18 %Not Estab.[facility] HealthcareMCH (RBC) [Entitic mass] 30.0 pg26.6 - 33.0 pgNOPA HealthcareHC (RBC) [Mass/Vol]31.0 g/dLLow31.5 - 35.7 g/dLNOMS [facility] HospitalMCV (RBC) [Entitic vol]97 fL79 - 97 fLNOPA Healthcare Monocytes (Bld) [#/Vol]0.6 10*3/uLNOMS HealthcareMonocytes/100 WBC (Bld)7 %Not Estab.NOMS HealthcareNeutrophils (Bld) [#/Vol]6.8 10*3/uLNOMS Healthcare Neutrophils/100 WBC (Bld)73 %Not Estab.[facility] HealthcarePlatelets (Bld) [#/Vol]326 10*3/[facility] HealthcareRBC (Bld) [#/Vol]4.77 10*6/NOPA HealthcareWBC (Bld) [#/Vol]9.2 10*3/[facility] HealthcarePerformed at: 01 - [facility] [address] [id number] American History Teacher: Ranjan Andre PhD, Phone: [phone] CBC W AUTO DIFF BLDon [id number]/100 WBC (Bld)0.3 %[facility] HospitalCCF BASOPHILS # BLD AUTO0.03NIHouston County Community Hospital DIFFERENTIAL METHOD BLDAutoNOMFitzgibbon HospitalF EOSINOPHIL # BLD AUTO0.11NIVanderbilt Stallworth Rehabilitation HospitalF LYMPHOCYTES # BLD AUTO1.49NOKindred HospitalF MONOCYTES # BLD AUTO0.65NIVanderbilt Stallworth Rehabilitation HospitalF NEUTROPHILS # BLD AUTO6.99NOKindred HospitalF NRBC # BLD AUTO<0.01NIVanderbilt Stallworth Rehabilitation HospitalF NRBC/100 WBC BLD-RTO0.0/100 WBCAlvin J. Siteman Cancer Center PLATELET # BLD [id number] Community Hospital CCF PMV BLD AUTO9.5 fL9.0 - 12.7 fLMadison Medical CenterF WBC # BLD AUTO9.32NOResearch Medical Center-Brookside CampusEosinophils/100 WBC (Bld)1.2 %[facility] HealthcareErythrocyte distribution width (RBC) [Ratio]14.2 %11.5 - 15.0 %[facility] HealthcareHematocrit (Bld) [Volume fraction]45.9 %36.0 - 46.0 %[facility] HealthcareHemoglobin (Bld) [Mass/Vol]14.7 g/dL 11.5 - 15.5 g/dLSelect Specialty Hospital GRANULOCYTES # BLD AUTO0.05NIHenry County Medical Center GRANULOCYTES/LEUK NFR BLD AUTO0.5 %[facility] HospitalLymphocytes/100 WBC (Bld)16.0 %Kindred HospitalH (RBC) [Entitic mass]31.3 pg26.0 - 34.0 pgNOResearch Medical Center-Brookside CampusMCHC (RBC) [Mass/Vol]32.0 g/dL30.5 - 36.0 g/dLNOMS HealthcareMCV (RBC) [Entitic vol]97.9 fL80.0 - 100.0 fLSTEWARD HEALTH CARE SYSTEM HealthcareMonocytes/100 WBC (Bld)7.0 % [facility] HospitalNeutrophils/100 WBC (Bld)75.0 %[facility] Community HospitalRBC (Bld) [#/Vol] 4.69 10*6/uL3.90 - 5.20 m/uLNOPA HealthcareSpecimen Type: BLOOD SPECIMEN Ordering Facility: [facility] Address: [address] [place], [place] [address] [address] Original Ordering Provider: ELLYN WHITESelect Specialty HospitalCCF COMP METAB 2000 PNL SERPLon [id number] [Mass/Vol]4.3 g/dL3.9 - 4.9 g/dLNOPA HealthcareALP [Catalytic activity/Vol]57 U/L34 - 123 U/LNOMS HealthcareALT [Catalytic activity/Vol]39 U/LHigh7 - 38 U/LNOMS HealthcareAnion gap [Moles/Vol] 9 mmol/L8 - 15 mmol/LNOMS HealthcareCalcium [Mass/Vol]9.4 mg/dL8.5 - 10.2 mg/dL [facility] HospitalCCF AST SERPL-CCNC28 U/L13 - 35 U/LNOMS HealthcareCCF BILIRUB SERPL-MCNC0.4 mg/dL0.2 - 1.3 mg/dLOzarks Community HospitalCCF PROT SERPL-MCNC6.8 g/dL6.3 - 8.0 g/dLNOPA HealthcareChloride [Moles/Vol]103 mmol/L98 - 107 mmol/LNOMS HealthcareCO2 [Moles/Vol]29 mmol/L22 - 30 mmol/LNOMS HealthcareCreatinine [Mass/Vol]0.71 mg/dL0.58 - 0.96 mg/dLNOPA HealthcareGFR/1.73 sq M.predicted CKD- EPI (S/P/Bld) [Vol rate/Area]110- PINFNOPA HealthcareComment on above:Estimated Glomerular Filtration Rate (eGFR) is calculated using the 2020 CKD-EPI creatinine equation. This equation utilizes serum creatinine, sex, and age as parameters. The creatinine assay has traceable calibration to isotope dilution- mass spectrometry. Refer to KDIGO guidelines for clinical interpretation. In patients with unstable renal function, e.g. those with acute kidney injury, the eGFRmay not accurately reflect actual GFR.Glucose [Mass/Vol]87 mg/dL74 - 99 mg/dLNOResearch Medical Center-Brookside CampusComment on above:The [place] Diabetes Association (ADA) provides guidance for cutoff values for fasting glucose andrandom glucose. The ADA defines fasting as no caloric intake for at least 8 hours. Fasting plasma gl ucose results between 100 to 125 mg/dL indicate [...] Standards of Medical Care in Diabetes 2016, [place] [employer]. Diabetes Care. 2016.39(Suppl 1). Interpretation and review of laboratory resultsAbnormalNOMS HealthcarePotassium [Moles/Vol]4.2 mmol/L3.7 - 5.1 mmol/LNOMS HealthcareSodium [Moles/Vol]141 mmol/L 136 - 144 mmol/LNOMS HealthcareUrea nitrogen [Mass/Vol]15 mg/dL7 - 21 mg/dLNOResearch Medical Center-Brookside CampusSpecimen Type: BLOOD SPECIMEN Ordering Facility[facility] Address: [address] [place] [address] Original Ordering Provider: ELLYN WHITESelect Specialty HospitalNo Panel InformationOrdered By: Ccf Provider on [id number] ClinicXR CHEST 2V FRONTAL/LATon 11-21-2023* * *Final Report* * * DATE OF [...] likely related to post radiation change, stable. [employer] Reservations: PSCB Transcribe Date/Time: Nov 21 2023 11:58A Dictated by : YOGESH DAVIS MD This examination was interpreted and the report reviewed and electronically signed by: YOGESH DAVIS MD on Nov 21 2023 12:06PM EST [id number]^AGFA_IDC^SI^ACNCCFRadiology, Radiologist, - 11/21/2023 * * *Final Report* [...] likely related to post radiation change, stable. [employer] Reservations: PSCB Transcribe Date/Time: Nov 21 2023 11:58A Dictated by : YOGESH DAVIS MD This examination was interpreted and the report reviewed and electronically signed by: YOGESH DAVIS MD on Nov 21 2023 12:06PM EST [id number]^AGFA_IDC^SI^ACN [facility] HealthcareRadiology Study observation (narrative)[facility] HealthcareXR Chest PA and Lateralon [id number]: 1. No interval change since 05/31/23. 2. Bilateral perihilar consolidative opacities, left greater than right, most likely related to post radiation change, stable. [employer] Reservations: [facility] Transcribe Date/Time: Nov 21 2023 11:58A Dictated by : YOGESH DAVIS MD This examination was interpreted and the report reviewed and electronically signed by: YOGESH DAVIS MD on Nov 21 2023 12:06PM EST DIVISION OF RADIOLOGY* * *Final Report* * * DATE OF [...] Bones and soft tissues: Unremarkable. DIVISION OF RADIOLOGYProvider, [facility] [place] - 11/21/2023 * * *Final Report* * [...] likely related to post radiation change, stable. [employer] Reservations: PSCEdwin Transcribe Date/Time: Nov 21 2023 11:58A Dictated by : YOGESH DAVIS MD This examination was interpreted and the report reviewed and electronically signed by: YOGESH DAVIS MD on Nov 21 2023 12:06PM [facility] NorthRadiology Study observation (narrative)[facility] W Auto Differential panel (Bld)on [id number] (Bld) [#/Vol]0.04 10*3/uL NINFCselect medical specialty hospital - youngstown ClinicDifferential cell count method Nom (Bld)AutoCMercy Health Tiffin Hospital Eosinophils (Bld) [#/Vol]0.26 10*3/uLNIFayette County Memorial HospitalImmature granulocytes (Bld) [#/Vol]0.04 10*3/uLNIFayette County Memorial HospitalImmature granulocytes/100 WBC (Bld) 0.5 %[facility], [facility] ShawLymphocytes (Bld) [#/Vol]2.39 10*3/uLSelect Medical [facility] Monocytes (Bld) [#/Vol]0.79 10*3/uLNIFayette County Memorial HospitalNeutrophils (Bld) [#/Vol] 4.64 10*3/Doctors HospitalNucleated RBC (Bld) [#/Vol]NINFCMercy Health Tiffin Hospital Nucleated RBC/100 WBC (Bld) [Ratio]0.0 %/100 WBCSelect Medical Cleveland Clinic Rehabilitation Hospital, Edwin ShawPlatelet mean volume (Bld) [Entitic vol]9.0 fL9.0 - 12.7 fLClevelOhio Valley HospitalPlatelets (Bld) [#/Vol]271 10*3/Doctors HospitalWBC (Bld) [#/Vol]8.16 10*3/[facility] CCF CBC W AUTO DIFF BLDon [id number] BASOPHILS # BLD AUTO0.04NIHouston County Community Hospital DIFFERENTIAL METHOD BLDAutoNOMS [facility] EOSINOPHIL # BLD AUTO0.26NIHouston County Community Hospital LYMPHOCYTES # BLD AUTO2.39NOProgress [facility] MONOCYTES # BLD AUTO0.79NIHouston County Community Hospital NEUTROPHILS # BLD AUTO4.64[facility] NRBC # BLD AUTO<0.01NIHouston County Community Hospital NRBC/100 WBC BLD-RTO0.0 /100 WBCAlvin J. Siteman Cancer Center PLATELET # BLD [id number] J. Siteman Cancer Center PMV BLD AUTO 9.0 fL9.0 - 12.7 fLAlvin J. Siteman Cancer Center WBC # BLD AUTO8.16NODoctors Hospital of [facility] GRANULOCYTES # BLD AUTO0.04NIHenry County Medical Center GRANULOCYTES/LEUK NFR BLD AUTO 0.5 %[facility]OMS HealthcareSpecimen Type: BLOOD SPECIMEN [facility]ing [facility] Address: [address] [place], [place] [id number] Original Ordering Provider: ELLYN TUCKERINISYNCComprehensive metabolic 2000 panelOrdered By: Saran Johnson on [id number] [Mass/Vol]4.3 g/dL3.9 - 4.9 g/dLDry Run ClinicALP [Catalytic activity/Vol]74 U/L34 - 123 U/LCleveland ClinicALT [Catalytic activity/Vol]38 U/L7 - 38 U/LCleveland ClinicAnion gap [Moles/Vol]10 mmol/L8 - 15 mmol/LCleveland ClinicAST [Catalytic activity/Vol]34 U/L13 - 35 U/LCleveland ClinicBilirubin [Mass/Vol]0.2 mg/dL0.2 - 1.3 mg/dL [facility] ClinicCalcium [Mass/Vol]9.5 mg/dL8.5 - 10.2 mg/dLSelect Medical [facility] Chloride [Moles/Vol]104 mmol/L98 - 107 mmol/LCleveland ClinicCO2 [Moles/Vol]29 mmol/L22 - 30 mmol/LCleveland ClinicCreatinine [Mass/Vol]0.74 mg/dL0.58 - 0.96 mg/dLDry Run ClinicGFR/1.73 sq M.predicted among non-blacks MDRD (S/P/Bld) [Vol rate/Area]104 mL/min/{1.73_m2}- PINFCleveland Maple Grove HospitalComment on above: Estimated Glomerular Filtration Rate (eGFR) is calculated using the 2020 CKD-EPI creatinine equation. This equation utilizes serum creatinine, sex, and age as parameters. The creatinine assay has traceable calibration to isotope dilution- mass spectrometry. Refer to KDIGO guidelines for clinical interpretation. In patients with unstable renal function, e.g. those with acute kidney injury, the eGFRmay not accurately reflect actual GFR.Glucose [Mass/Vol]89 mg/dL74 - 99 mg/dLSelect Medical [facility] Clinic Rehabilitation Hospital, Edwin ShawComment on above:The [place] Diabetes Association (ADA) provides guidance for cutoff values for fasting glucose andrandom glucose. The ADA defines fasting as no caloric intake for at least 8 hours. Fasting plasma gl ucose results between 100 to 125 mg/dL indicate [...] Standards of Medical Care in Diabetes 2016, [place] [employer]. Diabetes Care. 2016.39(Suppl 1). Interpretation and review of laboratory resultsNormalCleveland ClinicPotassium [Moles/Vol]4.8 mmol/L3.7 - 5.1 mmol/LCleveland ClinicProtein [Mass/Vol]6.7 g/dL 6.3 - 8.0 g/dLCleveland ClinicSodium [Moles/Vol]143 mmol/L136 - 144 mmol/L [facility] ShawUrea nitrogen [Mass/Vol]15 mg/dL7 - 21 mg/dLSouthern Ohio Medical CenterIMMUNOGLOBULIN Lorenzo [id number] [Mass/Vol]878 mg/dL700 - 1600 mg/dLSelect Medical [facility] Clinic Rehabilitation Hospital, Edwin ShawIgG [Mass/Vol]on [id number] and review of laboratory resultsNormalCcleveland clinic avon hospitaland [facility] TownshipLaboratory - Hematology and Cell countson [id number]/100 WBC (Bld)0.5 %[facility] Eosinophils/100 WBC (Bld)3.2 %[facility], [facility] ShawErythrocyte distribution width (RBC) [Ratio]13.7 %11.5 - 15.0 %[facility], [facility] ShawHematocrit (Bld) [Volume fraction]42.1 %36.0 - 46.0 %[facility], [facility] ShawHemoglobin (Bld) [Mass/Vol]14.1 g/dL 11.5 - 15.5 g/dLSelect Medical [facility] Clinic Rehabilitation Hospital, Edwin ShawLymphocytes/100 WBC (Bld)29.3 %[facility] MCH (RBC) [Entitic mass]31.4 pg26.0 - 34.0 pgClevelOwatonna ClinicHC (RBC) [Mass/Vol]33.5 g/dL30.5 - 36.0 g/dLSelect Medical [facility] Clinic Rehabilitation Hospital, Edwin ShawMCV (RBC) [Entitic vol]93.8 fL80.0 - 100.0 fLCMercy Health Tiffin HospitalMonocytes/100 WBC (Bld)9.7 %[facility] Neutrophils/100 WBC (Bld)56.8 %[facility], [facility] ShawRBC (Bld) [#/Vol]4.49 10*6/uL3.90 - 5.20 m/uLSelect Medical [facility] Clinic Rehabilitation Hospital, Edwin ShawNo Panel Informationon [id number] Clinic OXIMETRY WITH AMBULATIONon [id number] Weber RRT 10/15/2023 10:46 AM RESPIRATORY THERAPY OXIMETRY WITH [...] October 15, 2023 TIME: 10:45 AM Comment: [facility]No Panel Informationon [id number] [facility] HospitalRadiology Study observation (narrative) [facility] ShawRadiology Study observation (narrative)[facility] HospitalNo Panel InformationOrdered By: Ccf Provider on [id number] ClinicXR FOOT 3V AP/LAT/OBL BILon 10-09-2023* * *Final Report* * * DATE OF [...] No erosive arthropathy 2. Bilateral calcaneal enthesophytes [employer] Reservations: DEDE Transcribe Date/Time: Oct 09 2023 2:40P Dictated by : NICO HILLIARD MD This examination was interpreted and the report reviewed and electronically signed by: NICO HILLIARD MD on Oct 09 2023 2:42PM EST [id number]^AGFA_IDC^SI^ACNCCFRadiology, Radiologist, - 10/09/2023 * * *Final Report* [...] No erosive arthropathy 2. Bilateral calcaneal enthesophytes [employer] Reservations: [facility] Transcribe Date/Time: Oct 09 2023 2:40P Dictated by : NICO HILLIARD MD This examination was interpreted and the report reviewed and electronically signed by: NICO HILLIARD MD on Oct 09 2023 2:42PM EST [id number]^AGFA_IDC^SI^ACN [facility] HealthcareXR Foot - bilateral AP and Lateral and obliqueon 10-09-2023 IMPRESSION: 1. No erosive arthropathy 2. Bilateral calcaneal enthesophytes [employer] Reservations: [facility] Transcribe Date/Time: Oct 09 2023 2:40P Dictated by : NICO HILLIARD MD This examination was interpreted and the report reviewed and electronically signed by: NICO HILLIARD MD on Oct 09 2023 2:42PM EST DIVISION OF RADIOLOGY* * *Final Report* * * DATE OF [...] are intact. Small calcaneal enthesophytes. DIVISION OF RADIOLOGYProvider, [facility] [place] - 10/09/2023 * * *Final Report* * [...] No erosive arthropathy 2. Bilateral calcaneal enthesophytes [employer] Reservations: DEDE Transcribe Date/Time: Oct 09 2023 2:40P Dictated by : NICO HILLIARD MD This examination was interpreted and the report reviewed and electronically signed by: NICO HILLIARD MD on Oct 09 2023 2:42PM EST [facility] ShawXR HAND 3V PA/LAT/OBL BILon 10-09-2023* * *Final Report* * * DATE OF [...] tissues are unremarkable. IMPRESSION: 1. Minimal osteoarthritis [employer] Reservations: [facility] Transcribe Date/Time: Oct 09 2023 2:39P Dictated by : NICO HILLIARD MD This examination was interpreted and the report reviewed and electronically signed by: NICO HILLIARD MD on Oct 09 2023 2:40PM EST [id number]^AGFA_IDC^SI^ACNCCFRadiology, Radiologist, - 10/09/2023 * * *Final Report* [...] tissues are unremarkable. IMPRESSION: 1. Minimal osteoarthritis [employer] Reservations: DEDE Transcribe Date/Time: Oct 09 2023 2:39P Dictated by : NICO HILLIARD MD This examination was interpreted and the report reviewed and electronically signed by: NICO HILLIARD MD on Oct 09 2023 2:40PM EST [id number]^AGFA_IDC^SI^ACN [facility] HealthcareXR Hand - bilateral PA and Lateral and Obliqueon 10-09-2023 IMPRESSION: 1. Minimal osteoarthritis [employer] Reservations: PSCB Transcribe Date/Time: Oct 09 2023 2:39P Dictated by : INCO HILLIARD MD This examination was interpreted and the report reviewed and electronically signed by: NICO HILLIARD MD on Oct 09 2023 2:40PM EST DIVISION OF RADIOLOGY* * *Final Report* * * DATE OF [...] bilaterally. Soft tissues are unremarkable. DIVISION OF RADIOLOGYProvider, [facility] [place] - 10/09/2023 * * *Final Report* * [...] are unremarkable. IMPRESSION IMPRESSION: 1. Minimal osteoarthritis [employer] Reservations: DEDE Transcribe Date/Time: Oct 09 2023 2:39P Dictated by : NICO HILLIARD MD This examination was interpreted and the report reviewed and electronically signed by: NICO HILLIARD MD on Oct 09 2023 2:40PM EST [facility] ShawXR KNEE 4V AP/PA/LAT/MERCH BILon 10-09-2023* * *Final Report* * * DATE OF [...] joint effusions. IMPRESSION: 1. Mild patellofemoral osteoarthritis [employer] Reservations: [employer] Transcribe Date/Time: Oct 09 2023 2:42P Dictated by : NICO HILLIARD MD This examination was interpreted and the report reviewed and electronically signed by: NICO HILLIARD MD on Oct 09 2023 2:43PM EST [id number]^AGFA_IDC^SI^ACNCCFRadiology, Radiologist, MD - 10/09/2023 * * *Final [...] joint effusions. IMPRESSION: 1. Mild patellofemoral osteoarthritis [employer] Reservations: Ven[employer] Transcribe Date/Time: Oct 09 2023 2:42P Dictated by : NICO HILLIARD MD This examination was interpreted and the report reviewed and electronically signed by: NICO HILLIARD MD on Oct 09 2023 2:43PM EST [id number]^AGFA_IDC^SI^ACN [facility] HealthcareXR Knee - bilateral 4 Viewson [id number]: 1. Mild patellofemoral osteoarthritis [employer] Reservations: DEDE Transcribe Date/Time: Oct 09 2023 2:42P Dictated by : NICO HILLIARD MD This examination was interpreted and the report reviewed and electronically signed by: NICO HILLIARD MD on Oct 09 2023 2:43PM EST DIVISION OF RADIOLOGY* * *Final Report* * * DATE OF [...] tibia medially. No joint effusions. DIVISION OF RADIOLOGYProvider, [facility] [place] - 10/09/2023 * * *Final Report* * [...] effusions. IMPRESSION IMPRESSION: 1. Mild patellofemoral osteoarthritis [employer] Reservations: DEDE Transcribe Date/Time: Oct 09 2023 2:42P Dictated by : NICO HILLIARD MD This examination was interpreted and the report reviewed and electronically signed by: NICO HILLIARD MD on Oct 09 2023 2:43PM EST [facility] ShawXR SI JTS 2V AP PELV/FERGUSONon 10-09-2023* * *Final Report* * * DATE OF [...] at sacroiliac joints. No active sacroiliitis evident [employer] Reservations: [employer] Transcribe Date/Time: Oct 09 2023 2:37P Dictated by : NICO HILLIARD MD This examination was interpreted and the report reviewed and electronically signed by: NICO HILLIARD MD on Oct 09 2023 2:39PM EST [id number]^AGFA_IDC^SI^ACNCCFRadiology, Radiologist, - 10/09/2023 * * *Final Report* [...] at sacroiliac joints. No active sacroiliitis evident [employer] Reservations: [employer] Transcribe Date/Time: Oct 09 2023 2:37P Dictated by : NICO HILLIARD MD This examination was interpreted and the report reviewed and electronically signed by: NICO HILLIARD MD on Oct 09 2023 2:39PM EST [id number]^AGFA_IDC^SI^ACN [facility] HealthcareXR Sacroiliac Joint Viewson [id number]: 1. Mild degenerative changes at sacroiliac joints. No active sacroiliitis evident [employer] Reservations: DEDE Transcribe Date/Time: Oct 09 2023 2:37P Dictated by : NICO HILLIARD MD This examination was interpreted and the report reviewed and electronically signed by: NICO HILLIARD MD on Oct 09 2023 2:39PM [facility] DIVISION OF RADIOLOGY* * *Final Report* * * DATE OF [...] Small femoral head bone islands. DIVISION OF RADIOLOGYProvider, [facility] [place] - 10/09/2023 * * *Final Report* * [...] at sacroiliac joints. No active sacroiliitis evident [employer] Reservations: DEDE Transcribe Date/Time: Oct 09 2023 2:37P Dictated by : NICO HILLIARD MD This examination was interpreted and the report reviewed and electronically signed by: NICO HILLIARD MD on Oct 09 2023 2:39PM [facility] NorthAdditional Injections: R extensor compartment 1on 08-27-2023 Sherly Hansen PA-C 08/27/2023 8:19 AM Additional Injections: R extensor compartment 1 for de Quervain's tenosynovitis Informed Consent Consent Obtained: Verbal [place] Protocol A moment to CARE was completed. [...] and Plan of Care Visit completed when applicableFulton County Health Center W Auto Differential panel (Bld)on [id number] (Bld) [#/Vol]0.03 10*3/uLNIFayette County Memorial Hospital Basophils/100 WBC (Bld)0.2 %[facility] ShawDifferential cell count method Nom (Bld)AutoCleveland ClinicEosinophils (Bld) [#/Vol]0.09 10*3/uLNINFSelect Medical [facility] Rehabilitation Hospital, Edwin ShawEosinophils/100 WBC (Bld)0.6 %[facility], [facility] ShawErythrocyte distribution width (RBC) [Ratio]12.8 %11.5 - 15.0 %[facility], [facility] ShawHematocrit (Bld) [Volume fraction]42.8 %36.0 - 46.0 %[facility] Hospital, [facility] ShawHemoglobin (Bld) [Mass/Vol]14.1 g/dL 11.5 - 15.5 g/dLSelect Medical [facility] Clinic Rehabilitation Hospital, Edwin ShawImmature granulocytes (Bld) [#/Vol]0.20 10*3/uL HighNINFSelect Medical [facility] Clinic Rehabilitation Hospital, Edwin ShawImmature granulocytes/100 WBC (Bld)1.3 %[facility] Interpretation and review of laboratory resultsAbnormalCMercy Health Tiffin Hospital Lymphocytes (Bld) [#/Vol]2.35 10*3/uLSelect Medical [facility] Clinic Rehabilitation Hospital, Edwin ShawLymphocytes/100 WBC (Bld) 15.0 %[facility] HospitalH (RBC) [Entitic mass]31.1 pg26.0 - 34.0 pgCBucyrus Community HospitalHC (RBC) [Mass/Vol]32.9 g/dL30.5 - 36.0 g/dLPike Community HospitalV (RBC) [Entitic vol]94.5 fL80.0 - 100.0 fLCselect medical specialty hospital - youngstown ClinicMonocytes (Bld) [#/Vol]0.84 10*3/uLNIFayette County Memorial HospitalMonocytes/100 WBC (Bld)5.4 %[facility] Neutrophils (Bld) [#/Vol]12.14 10*3/uLSouthwest General Health CenterNeutrophils/100 WBC (Bld)77.5 %[facility], [facility] ShawNucleated RBC (Bld) [#/Vol]NINAshtabula County Medical Center Nucleated RBC/100 WBC (Bld) [Ratio]0.0 %/100 WBCSelect Medical Cleveland Clinic Rehabilitation Hospital, Edwin ShawPlatelet mean volume (Bld) [Entitic vol]9.2 fL9.0 - 12.7 fLCselect medical specialty hospital - youngstown ClinicPlatelets (Bld) [#/Vol]332 10*3/uLSelect Medical [facility] Clinic Rehabilitation Hospital, Edwin ShawRBC (Bld) [#/Vol]4.53 10*6/uL3.90 - 5.20 m/uL [facility], [facility] ShawWBC (Bld) [#/Vol]15.65 10*3/uLProMedica Memorial HospitalComprehensive metabolic 2000 panelOrdered By: Saran Johnson on 08-05-2023 Albumin [Mass/Vol]3.9 g/dL3.9 - 4.9 g/dLDry Run ClinicALP [Catalytic activity/Vol]69 U/L34 - 123 U/LCleveland ClinicALT [Catalytic activity/Vol]58 U/LHigh7 - 38 U/LCleveland ClinicAnion gap [Moles/Vol]10 mmol/L8 - 15 mmol/L [facility] ShawAST [Catalytic activity/Vol]25 U/L13 - 35 U/LCleveland Clinic Bilirubin [Mass/Vol]0.5 mg/dL0.2 - 1.3 mg/dLDry Run ClinicCalcium [Mass/Vol] 9.7 mg/dL8.5 - 10.2 mg/dLSelect Medical [facility] Clinic Rehabilitation Hospital, Edwin ShawChloride [Moles/Vol]103 mmol/L98 - 107 mmol/LCleveland ClinicCO2 [Moles/Vol]29 mmol/L22 - 30 mmol/LCleveland Clinic Creatinine [Mass/Vol]0.90 mg/dL0.58 - 0.96 mg/dLSelect Medical [facility] Rehabilitation Hospital, Edwin ShawGFR/1.73 sq M.predicted among non-blacks MDRD (S/P/Bld) [Vol rate/Area]83 mL/min/{1.73_m2}- PINFCleveland ClinicComment on above:Estimated Glomerular Filtration Rate (eGFR) is calculated using the 2020 CKD-EPI creatinine equation. This equation utilizes serum creatinine, sex, and age as parameters. The creatinine assay has traceable calibration to isotope dilution-mass spectrometry. Refer to KDIGO guidelines for clinical interpretation. In patients with unstable renal function, e.g. those with acute kidney injury, the eGFRmay not accurately reflect actual GFR.Glucose [Mass/Vol]109 mg/fUUkch67 - 99 mg/dLSelect Medical [facility] Clinic Rehabilitation Hospital, Edwin ShawComment on above:The [place] Diabetes Association (ADA) provides guidance for cutoff values for fasting glucose andrandom glucose. The ADA defines fasting as no [...] Standards of Medical Care in Diabetes 2016, [place] [employer] Association. Diabetes Care. 2016.39(Suppl 1). Interpretation and review of laboratory resultsAbnormalCleveland ClinicPotassium [Moles/Vol]3.6 mmol/LLow3.7 - 5.1 mmol/LCleveland ClinicProtein [Mass/Vol]6.7 g/dL6.3 - 8.0 g/dLDry Run ClinicSodium [Moles/Vol]142 mmol/L136 - 144 mmol/L [facility], [facility] ShawUrea nitrogen [Mass/Vol]15 mg/dL7 - 21 mg/dLSouthern [place] Medical CenterESR Westergren method (Bld) [Velocity]on 34-19-8528QJM (Bld) [Velocity]17 mm/hCleveland ClinicInterpretation and review of laboratory results NormalCleHocking Valley Community HospitalNo Panel InformationOrdered By: Ccf Provider on [id number] ClinicXR ESOPHAGRAMon 07-19-2023* * *Final Report* * * DATE OF [...] remainder of the procedure. IMPRESSION: NORMAL ESOPHAGRAM. [employer] Reservations: PSCB Transcribe Date/Time: Jul 19 2023 2:16P Dictated by : ADDIS SUTTON MD This examination was interpreted and the report reviewed and electronically signed by: RUPERTO PLASCENCIA MD on Jul 19 2023 2:33PM EST [id number]^AGFA_IDC^SI^ACNCCFRadiology, Radiologist, - 07/19/2023 * * *Final Report* [...] remainder of the procedure. IMPRESSION: NORMAL ESOPHAGRAM. [employer] [facility]ations[facility] Transcribe Date/Time: Jul 19 2023 2:16P Dictated by : ADDIS SUTTON MD This examination was interpreted and the report reviewed and electronically signed by: RUPERTO PLASCENCIA MD on Jul 19 2023 2:33PM EST [id number]^AGFA_IDC^SI^ACN [facility] HealthcareRadiology Study observation (narrative)[facility] HospitalXR Esophagus Views W contrast Eve 24-37-8108STCRDPNMLB: NORMAL ESOPHAGRAM. Supervisor International Reservations: [facility] Transcribe Date/Time: Jul 19 2023 2:16P Dictated by : ADDIS SUTTON MD This examination was interpreted and the report reviewed and electronically signed by: RUPERTO PLASCENCIA MD on Jul 19 2023 2:33PM EST DIVISION OF RADIOLOGY* * *Final Report* * * DATE OF [...] the remainder of the procedure. DIVISION OF RADIOLOGYProvider, [facility] [place] - 07/19/2023 * * *Final Report* * * DATE OF EXAM: Jul 19 2023 2:16PM X [id number] - XR ESOPHAGRAM / PROCEDURE REASON: [...] of the procedure. IMPRESSION IMPRESSION: NORMAL ESOPHAGRAM. [employer] Reservations[facility] Transcribe Date/Time: Jul 19 2023 2:16P Dictated by : ADDIS SUTTON MD This examination was interpreted and the report reviewed and electronically signed by: RUPERTO PLASCENCIA MD on Jul 19 2023 2:33PM [facility] NorthRadiology Study observation (narrative)[facility], [facility] ShawCNTHERAPY on 80-59-2588SGNBEFHQYOA/PT/Speech Visit (SPMBAV) CELSO WELLER ([id number]) 1980 F Date Time Provider Department 07/10/23 1:00 PM [facility] Provider [facility] 07/10/2023 1:00 PM [id number], MELANIE [facility] Reason for Visit: Speech Instrumental Swallow Eval [3660] Speech Discharge [1208] Primary Visit Diagnosis:Dysphagia, unspecified type [R13.10] Allergies As of Date: 07/10/2023 Noted Allergy Reaction CHLORHEXIDINE 03/11/2013 9 - Itching Comments: Severe skin irritation. Had used for central line care SULFA (SULFONAMIDE ANTIBIOTICS) 01/07/2012 2 - Rash Date Reviewed: 06/28/2023 Reviewed by: Nadir Rowan LPN - Fully Assessed Prescriptions as of 07/10/2023 - tjltrkknrfe-ufssqbsii-gaqlxggi (TRELEGY ELLIPTA) 200-62.5-25 mcg inhalation powder Inhale 1 Puff as instructed once daily. - fluticasone (FLONASE ALLERGY RELIEF) 50 mcg/actuation nasal spray Use 1 Morris in each nostril once daily. - oxyCODONE [...] - azelastine 0.1% nasal spray Use 1 Morris in each nostril two times a day. [...] C No.3 (B COMPLEX PLUS VITAMIN C) 95-25-36-5-300 mg cap Take 1 tablet by mouth [...] she will be off of it soon. NormalUintah Basin Medical Center Panel InformationOrdered By: Cc Provider on 07-10-2023 [facility] videography Hypopharynx and Esophagus Views W liquid and paste contrast PO during swallowingon 10-06-0688REYDMWWRKA: THE SPEECH PATHOLOGIST REPORT AND RECOMMENDATIONS ARE PRESENT IN THE NOTES COMPONENT OF [facility] [employer] Reservations: PSCB Transcribe Date/Time: Jul 10 2023 3:06P Dictated by : ERIC GREENFIELD MD This examination was interpreted and the report reviewed and electronically signed by: ERIC GREENFIELD MD on Jul 10 2023 3:06PM [facility] RADIOLOGY* * *Final Report* * * DATE OF [...] swallowing evaluation by the speech pathologist. JESS RADIOLOGYProvider, [facility] [place] - 07/10/2023 * * *Final Report* * [...] ARE PRESENT IN THE NOTES COMPONENT OF [facility] [employer] Reservations: PSCB Transcribe Date/Time: Jul 10 2023 3:06P Dictated by : ERIC GREENFIELD MD This examination was interpreted and the report reviewed and electronically signed by: ERIC GREENFIELD MD on Jul 10 2023 3:06PM EST [facility] ShawRadiology Study observation (narrative)IvySelect Medical Specialty [facility] - [facility]-FairhillXR MOD BARIUM SWALLOW W SPEECHon 07-10-2023* * *Final Report* * * DATE OF [...] ARE PRESENT IN THE NOTES COMPONENT OF [employer] Reservations: [facility] Transcribe Date/Time: Jul 10 2023 3:06P Dictated by : ERIC GREENFIELD MD This examination was interpreted and the report reviewed and electronically signed by: ERIC GREENFIELD MD on Jul 10 2023 3:06PM EST [id number]^AGFA_IDC^SI^ACNCCFRadiology, Radiologist, - 07/10/2023 * * *Final Report* [...] ARE PRESENT IN THE NOTES COMPONENT OF [employer] Reservations: PSCB Transcribe Date/Time: Jul 10 2023 3:06P Dictated by : ERIC GREENFIELD MD This examination was interpreted and the report reviewed and electronically signed by: ERIC GREENFIELD MD on Jul 10 2023 3:06PM EST [id number]^AGFA_IDC^SI^ACN [facility] HealthcareXR MOD BARIUM SWALLOW W SPEECH* * *Final Report* * * DATE OF [...] PRESENT IN THE NOTES COMPONENT OF EPIC [employer] Reservations: [facility] Transcribe Date/Time: Jul 10 2023 3:06P Dictated by : EIRC GREENFIELD MD This examination was interpreted and the report reviewed and electronically signed by: ERIC GREENFIELD MD on Jul 10 2023 3:06PM EST [id number]_IDCSIACNNormalSalt Lake Behavioral Health HospitalRadiology Study observation (narrative) [facility] W Auto Differential panel (Bld)on 96-72-0300Jbeqtknez (Bld) [#/Vol]0.03 10*3/uLNINFSelect Medical [facility] Clinic Rehabilitation Hospital, Edwin ShawBasophils/100 WBC (Bld)0.3 %[facility] ShawDifferential cell count method Nom (Bld)AutoCleveland ClinicEosinophils (Bld) [#/Vol]0.08 10*3/uLNINFSelect Medical [facility] Rehabilitation Hospital, Edwin ShawEosinophils/100 WBC (Bld)0.7 % [facility] ShawErythrocyte distribution width (RBC) [Ratio]14.2 %11.5 - 15.0 % [facility], [facility] ShawHematocrit (Bld) [Volume fraction]44.1 %36.0 - 46.0 %[facility] ShawHemoglobin (Bld) [Mass/Vol]14.6 g/dL11.5 - 15.5 g/dLSelect Medical [facility] Immature granulocytes (Bld) [#/Vol]0.06 10*3/uLNINFSelect Medical [facility] Hospital, Edwin ShawImmature granulocytes/100 WBC (Bld)0.5 %[facility] ShawInterpretation and review of laboratory resultsAbnormalCleveland ClinicLymphocytes (Bld) [#/Vol]2.11 10*3/uL [facility] ShawLymphocytes/100 WBC (Bld)18.3 %[facility] HospitalH (RBC) [Entitic mass]31.5 pg26.0 - 34.0 pgClevelOwatonna ClinicHC (RBC) [Mass/Vol]33.1 g/dL30.5 - 36.0 g/dLSelect Medical [facility] Clinic Rehabilitation Hospital, Edwin ShawMCV (RBC) [Entitic vol]95.2 fL80.0 - 100.0 fLClevelnovant health ballantyne medical center ClinicMonocytes (Bld) [#/Vol]0.67 10*3/uLNINFSelect Medical [facility] Monocytes/100 WBC (Bld)5.8 %[facility] ShawNeutrophils (Bld) [#/Vol]8.55 10*3/uLSouthwest General Health CenterNeutrophils/100 WBC (Bld)74.4 %[facility] Nucleated RBC (Bld) [#/Vol]NINFClevelOhio Valley HospitalNucleated RBC/100 WBC (Bld) [Ratio]0.0 %/100 WBCSelect Medical Cleveland Clinic Rehabilitation Hospital, Edwin ShawPlatelet mean volume (Bld) [Entitic vol]8.8 fLLow9.0 - 12.7 fLClevelnovant health ballantyne medical center ClinicPlatelets (Bld) [#/Vol]312 10*3/uLSelect Medical [facility] Clinic Rehabilitation Hospital, Edwin ShawRBC (Bld) [#/Vol]4.63 10*6/uL3.90 - 5.20 m/uLSelect Medical [facility] Clinic Rehabilitation Hospital, Edwin ShawWBC (Bld) [#/Vol]11.50 10*3/uLProMedica Memorial HospitalComprehensive metabolic 2000 panelOrdered By: Zaira Rivera on 49-98-5842Twparyp [Mass/Vol]4.1 g/dL3.9 - 4.9 g/dLDry Run ClinicALP [Catalytic activity/Vol]71 U/L34 - 123 U/LCleveland ClinicALT [Catalytic activity/Vol]41 U/LHigh7 - 38 U/LCleveland ClinicAnion gap [Moles/Vol]14 mmol/L9 - 18 mmol/LCleveland ClinicAST [Catalytic activity/Vol]27 U/L13 - 35 U/LCleveland ClinicBilirubin [Mass/Vol]0.5 mg/dL0.2 - 1.3 mg/dL [place] ClinicCalcium [Mass/Vol]9.5 mg/dL8.5 - 10.2 mg/dLSelect Medical [facility] Chloride [Moles/Vol]104 mmol/L97 - 105 mmol/LCleveland ClinicCO2 [Moles/Vol]24 mmol/L22 - 30 mmol/LCleveland ClinicCreatinine [Mass/Vol]0.74 mg/dL0.58 - 0.96 mg/dLSelect Medical [facility], Edwin ShawGFR/1.73 sq M.predicted among non-blacks MDRD (S/P/Bld) [Vol rate/Area]105 mL/min/{1.73_m2}- PINFCleveland ClinicComment on above: Estimated Glomerular Filtration Rate (eGFR) is calculated using the 2020 CKD-EPI creatinine equation. This equation utilizes serum creatinine, sex, and age as parameters. The creatinine assay has traceable calibration to isotope dilution- mass spectrometry. Refer to KDIGO guidelines for clinical interpretation. In patients with unstable renal function, e.g. those with acute kidney injury, the eGFRmay not accurately reflect actual GFR.Glucose [Mass/Vol]137 mg/cWRvoe21 - 99 mg/dLSelect Medical [facility] Clinic Rehabilitation Hospital, Edwin ShawComment on above:The [place] Diabetes Association (ADA) provides guidance for cutoff values for fasting glucose andrandom glucose. The ADA defines fasting as no caloric intake for at least 8 hours. Fasting plasma gl ucose results between 100 to 125 mg/dL indicate [...] Standards of Medical Care in Diabetes 2016, [place] Diabetes Association. Diabetes Care. 2016.39(Suppl 1). Interpretation and review of laboratory resultsAbnormalCleveland ClinicPotassium [Moles/Vol]3.9 mmol/L3.7 - 5.1 mmol/LCleveland ClinicProtein [Mass/Vol]6.6 g/dL 6.3 - 8.0 g/dLCincinnati Children's Hospital Medical Centerodium [Moles/Vol]142 mmol/L136 - 144 mmol/L [facility] ShawUrea nitrogen [Mass/Vol]19 mg/dL7 - 21 mg/dLSouthern [place] Medical CenterES Westergren method (Bld) [Velocity]on 33-67-8716GUM (Bld) [Velocity]5 mm/hClleilaeland ClinicInterpretation and review of laboratory results NormalUC HealthIMMUNOGLOBULIN Lorenzo 52-84-6923ViQ [Mass/Vol]836 mg/dL700 - 1600 mg/dLSelect Medical [facility] Rehabilitation Hospital, Edwin ShawIgG [Mass/Vol]on 06-10-2023 Interpretation and review of laboratory resultsNormalCleveland Kettering [facility] Washington TownshipT4/FTI/T4Uon 23-20-9362SOG8.4 ug/dL5.3 - 10.8 ug/dLSelect Medical [facility] Interpretation and review of laboratory resultsNormalCleveland ClinicT4 [Mass/Vol]8.3 ug/dL5.5 - 10.2 ug/dLSelect Medical [facility] Rehabilitation Hospital, Edwin ShawT4 uptake [Mass/Vol]0.990.91 - 1.19UC HealthTHYROID STIMULATING HORMONEon 06-10-2023 TSH Qn0.445 m[IU]/LClevelnovant health ballantyne medical center ClinicComment on above:If the patient is , TSH reference range varies by gestational period: First Trimester (weeks 9-12): 0.180-2.990 mIU/L Second Trimester: 0.110-3.980 mIU/L Third Trimester: 0.480-4.710 mIU/L Samuel Patel et al. A Practical Approach for the Verifications and Determination of Site- and Trimester-Specific Reference Intervals for Thyroid Function tests in . Thyroid, 2019:29:3:412-420.Mirza Lopes, et al. 2017 Guidelines of the [place] Thyroid Association for the Diagnosis and Management of Thyroid Disease during and the . Thyroid, 2017:27:3:315-389. TSH Qnon 07-33-8622Pkxknhvfbiavcf and review of laboratory resultsNormal UC HealthL SARS-COV-2,INFLUENZA A/B,RSV RAPIDon 34-46-3320PBFF-CoV-2 (COVID-19) RNA TARA+probe Ql (Unsp spec) COVID 19 RESULT: Not detected NOMS IwrhnzrvoqOOGC-WkT-0 (COVID-19) RNA TARA+probe Ql (Unsp spec)The method used is RT-PCR or an equivalent NAAT method.[facility] RposomkhxxDUMA-FxN-5 (COVID-19) RNA TARA+probe Ql (Unsp spec)Reference Range (the expected result in uninfected individuals): Not detectedSTEWARD [facility] SYSTEM RmvghjskxhRJPG-RkW-5 (COVID-19) RNA TARA+probe Ql (Unsp spec) INFLUENZA A PCR: Not detected NOM BsflrqhmuhTZFX-WsB-2 (COVID-19) RNA TARA+probe Ql (Unsp spec) INFLUENZA B PCR: Not detected [facility] CagglgdqtqNZPD-AnD-5 (COVID-19) RNA TARA+probe Ql (Unsp spec) RSV PCR: Not detected [facility] HealthcareOriginal Ordering Provider: ROSALES RIOS HealthcareLaboratory - Microbiology and Antimicrobial susceptibilityon 42-30-9783AZNV-CoV-2 (COVID-19) RNA TARA+probe Ql (Unsp spec)[facility] HealthcareXR CHEST 2V FRONTAL/LATon 05-31-2023* * *Final Report* * * DATE OF [...] Postradiation changes in the left lung, stable. [employer] Reservations: DEDE Transcribe Date/Time: May 31 2023 3:49P Dictated by : YOGESH DAVIS MD This examination was interpreted and the report reviewed and electronically signed by: YOGESH DAVIS MD on May 31 2023 3:53PM EST [id number]^AGFA_IDC^SI^ACNCCFRadiology, RadiologistMD - 05/31/2023 * * *Final Report* * [...] Postradiation changes in the left lung, stable. [employer] Reservations: DEDE Transcribe Date/Time: May 31 2023 3:49P Dictated by : YOGESH DAVIS MD This examination was interpreted and the report reviewed and electronically signed by: YOGESH DAVIS MD on May 31 2023 3:53PM EST [id number]^AGFA_IDC^SI^ACN [facility] HealthcareRadiology Study observation (narrative)[facility] HealthcareXR CHEST 2V FRONTAL/LATOrdered By: Radiologist Radiology on [id number] Community Hospital Work Phone: XR Chest PA and Lateralon 47-25-1910Swmrnrdya [facility] PET/CT SKULL-THIGH SUBQon 05-21-2023* * *Final Report* * * DATE OF [...] * Radiopharmaceutical Dose: 12.1 mCi * Radiopharmaceutical: H94-Jacakteouyyilcyvvf (FDG) COMPARISON: FDG PET/CT dated 01/28/2023. CORRELATION: None. RESULT: REFERENCES: SUV reference values: * Blood pool (descending aorta) activity: SUVmax 2.8 * Background liver activity: SUVmax 3.6; SUVmean 2.7 Artist Mannequin Coloring (topogram) images: No additional findings. Notes and [...] any questions regarding this interpretation, please call [phone]. If you are unable to reach us at the number above, please feel free to contact [facility] at [phone]. [id number]^AGFA_IDC^SI^ACNCCFRadiology, Radiologist, - 05/21/2023 * * *Final Report* [...] * Radiopharmaceutical Dose: 12.1 mCi * Radiopharmaceutical: F82-Arqpjkisrucedngclz (FDG) COMPARISON: FDG PET/CT dated 01/28/2023. CORRELATION: None. RESULT: REFERENCES: SUV reference values: * Blood pool (descending aorta) activity: SUVmax 2.8 * Background liver activity: SUVmax 3.6; SUVmean 2.7 Artist Mannequin Coloring (topogram) images: No additional findings. Notes and [...] any questions regarding this interpretation, please call [phone]. If you are unable to reach us at the number above, please feel free to contact [facility] eRadiology at [phone]. [id number]^AGFA_IDC^SI^ACN [facility] HealthcareNo Panel InformationOrdered By: Ccf Provider on 05-21-2023 [facility] ShawPET+CT Guidance for localization of tumor of Skull base to mid-thigh-- W 18F-FDG Amira 74-07-9354ZUXQHSKMYX: HEAD/NECK: * No FDG avid neoplastic process. [...] any questions regarding this interpretation, please call [phone]. If you are unable to reach us at the number above, please feel free to contact [facility] at [phone].DIVISION OF RADIOLOGY* * *Final Report* * * DATE OF [...] * Radiopharmaceutical Dose: 12.1 mCi * Radiopharmaceutical: L79-Kjmcsnbawaobazvzda (FDG) COMPARISON: FDG PET/CT dated 01/28/2023. CORRELATION: None. RESULT: REFERENCES: SUV reference values: * Blood pool (descending aorta) activity: SUVmax 2.8 * Background liver activity: SUVmax 3.6; SUVmean 2.7 Artist Mannequin Coloring (topogram) images: No additional findings. Notes and [...] Soft Tissues: No abnormal uptake. DIVISION OF RADIOLOGYProvider, [facility] [place] - 05/21/2023 * * *Final Report* * [...] * Radiopharmaceutical Dose: 12.1 mCi * Radiopharmaceutical: H75-Hvpwbrfwewekxbqjil (FDG) COMPARISON: FDG PET/CT dated 01/28/2023. CORRELATION: None. RESULT: REFERENCES: SUV reference values: * Blood pool (descending aorta) activity: SUVmax 2.8 * Background liver activity: SUVmax 3.6; SUVmean 2.7 Artist Mannequin Coloring (topogram) images: No additional findings. Notes and [...] any questions regarding this interpretation, please call [phone]. If you are unable to reach us at the number above, please feel free to contact [facility] eRadiology at [phone]. [facility] ShawGLUCOSE, BLOOD (POC)on 33-90-5751Ujtjaij [Mass/Vol]89 mg/dL74 - 99 mg/dLSelect Medical [facility] Clinic Rehabilitation Hospital, Edwin ShawComment on above:Location:[facility], [address] [place] [address] , [place], [place], [facility] The Accu-Chek Inform II glucose meter has [...] blood gas instrument) in the above situations. [facility] PET/CT SKULL-THIGH SUBQon 02-45-0149Ndycvacpy Study observation (narrative)[facility] HospitalPET+CT Guidance for localization of tumor of Skull base to mid-thigh-- W 18F-FDG Amira 40-75-3635Emhmycvwu Study observation (narrative)[facility] ShawXR CHEST 2V FRONTAL/LATon 04-21-2023* * *Final Report* * * DATE OF [...] and soft tissues: Unremarkable. IMPRESSION: See result. [employer] Reservations: DEDE Transcribe Date/Time: Apr 21 2023 5:48A Dictated by : KOLE KEARNEY MD This examination was interpreted and the report reviewed and electronically signed by: KOLE KEARNEY MD on Apr 21 2023 5:49AM EST [id number]^AGFA_IDC^SI^ACNCCFRadiology, Radiologist, - 04/21/2023 * * *Final Report* [...] and soft tissues: Unremarkable. IMPRESSION: See result. [employer] Reservations: [facility] Transcribe Date/Time: Apr 21 2023 5:48A Dictated by : KOLE KEARNEY MD This examination was interpreted and the report reviewed and electronically signed by: KOLE KEARNEY MD on Apr 21 2023 5:49AM EST [id number]^AGFA_IDC^SI^ACN [facility] HealthcareXR CHEST 2V FRONTAL/LATOrdered By: Radiologist Radiology on 03-29-5960MBM[facility] Work Phone: XR CHEST 2V FRONTAL/LATon 61-04-1012Ygblghajh Study observation (narrative)[facility]OMS HealthcareNITRIC OXIDE, EXHALEDon 03-28-2023 [facility] ShawCORTISOL BLDon 81-21-4469Comukcna [Mass/Vol]1.9 ug/dLLow4.8 - 19.5 ug/dLSelect Medical [facility] Clinic Rehabilitation Hospital, Edwin ShawComment on above:Provided reference range is from 6-10 AM sample collection time. Cortisol Reference Range: 6-10 AM = 4.8-19.5 ug/dL, 4-8 PM = 2.5-11.9 ug/dL Cortisol [Mass/Vol]on 32-23-5404Jrekfujdvupoeb and review of laboratory results AbnormalBucyrus Community Hospital PET/CT SKULL-THIGH SUBQon 01-29-2023* * *Final Report* * * DATE OF [...] any questions regarding this interpretation, please call [phone]. If you are unable to reach us at the number above, please feel free to contact [facility] at [phone]. [id number]^AGFA_IDC^SI^ACNCCFRadiology, Radiologist, - 01/29/2023 * * *Final Report* [...] any questions regarding this interpretation, please call [phone]. If you are unable to reach us at the number above, please feel free to contact [facility] eRadiology at [phone]. [id number]^AGFA_IDC^SI^ACN [facility] HospitalNo Panel InformationOrdered By: Ccf Provider on 01-29-2023 [facility] Panel Informationon 24-93-6988Okxdbaspwpucgr and review of laboratory resultsNormalCTogus VA Medical CenterPET+CT Guidance for localization of tumor of Skull [...] any questions regarding this interpretation, please call [phone]. If you are unable to reach us at the number above, please feel free to contact [facility] at [phone].DIVISION OF RADIOLOGY* * *Final Report* * * DATE OF [...] lytic or sclerotic lesions to suggest metastases. -DIVISION OF RADIOLOGYProvider, [facility] [place] - 01/29/2023 * * *Final Report* * [...] any questions regarding this interpretation, please call [phone]. If you are unable to reach us at the number above, please feel free to contact [facility] eRadiology at [phone]. [place] [address] FREE/FREE THYROXon 02-33-6732Xmrk T4 [Mass/Vol]1.3 ng/dL0.9 - 1.7 ng/dLCleveland Clinic Children's Hospital [facility] BLDon 02-42-3261TXC Qn0.980 m[IU]/LCleveland ClinicComment on above:If the patient is , TSH reference range varies by gestational period: First Trimester (weeks 9-12): 0.180-2.990 mIU/L Second Trimester: 0.110-3.980 mIU/L Third Trimester: 0.480-4.710 mIU/L Samuel Patel, et al. A Practical Approach for the Verifications and Determination of Site- and Trimester-Specific Reference Intervals for Thyroid Function tests in . Thyroid, 2019:29:3:412-420.Mirza Lopes, et al. 2017 Guidelines of the [place] Thyroid Association for the Diagnosis and Management of Thyroid Disease during and the . Thyroid, 2017:27:3:315-389. Urinalysis - AUTOMATEDon 05-99-8968Cbvirxzxuo (U)clearNortBluetrain.io Other Bilirubin Ql (U)Negativetsumobi Other Color (U)bright yellowNoVendRx Other Glucose Ql (U)Negativetsumobi Other Hemoglobin Ql (U)NegativeSiluria Technologies Multifonds Other Ketones Ql (U)NegativeVendRx Other Leukocyte esterase Test strip Ql (U)traceDickeyville Multifonds Other Nitrite Ql (U)[facility] Multifonds Other pH (U)6.0 [pH][place] Multifonds Other Protein Ql (U)NegativeWorkec Multifonds Other Specific gravity (U) [Rel density]1.010[place] Multifonds Other Urobilinogen (U) [Mass/Vol]0.2 mg/dLDickeyville Multifonds Other Urinalysis - AUTOMATEDDickeyville Multifonds Other Urine Cultureon [id number] identified Cx Nom (U)Reason for Exam Dysuria Urine Reason for Exam: Dysuria : Urine ORGANISM: Escherichia coli (O:ESCCOL) [place] Count >100,000 Aerobic RICARDO Charge (NMIC56) SUSCEPTIBILITY [...] <4 Tigecycline S <2 Tobramycin S <2 Trimethoprim/Sulfamethoxazole S <0.5 S = SUSCEPTIBLE I = [...] RESISTANT TO ALL B-LACTAM DRUGS. PERFORMED BY: [place] [address] PATHOLOGIST BILLIARD PLAYER MARGARITA HAYWOOD M.D.[facility] Good Samaritan HospitalComment on above: Performed By: #### CUU #### [place] [address] USACB W Auto Differential panel (Bld)on [id number] (Bld) [#/Vol]0.04 10*3/uLNINFSelect Medical [facility] Clinic Rehabilitation Hospital, Edwin ShawBasophils/100 WBC (Bld)0.5 % [facility] ShawDifferential cell count method Nom (Bld)AutoCleveland Clinic Eosinophils (Bld) [#/Vol]0.13 10*3/uLNINFSelect Medical [facility] Hospital, Edwin ShawEosinophils/100 WBC (Bld)1.5 %[facility], [facility] ShawErythrocyte distribution width (RBC) [Ratio]13.3 %11.5 - 15.0 %[facility], [facility] ShawHematocrit (Bld) [Volume fraction]47.6 %High36.0 - 46.0 %[facility], [facility] ShawHemoglobin (Bld) [Mass/Vol]15.8 g/bLWacx85.5 - 15.5 g/dL [facility] ShawImmature granulocytes (Bld) [#/Vol]NINFCleveland Maple Grove HospitalImmature granulocytes/100 WBC (Bld)0.2 %[facility] ShawInterpretation and review of laboratory resultsAbnormalCleveland ClinicLymphocytes (Bld) [#/Vol]2.60 10*3/uL [facility], [facility] ShawLymphocytes/100 WBC (Bld)30.5 %[facility] HospitalH (RBC) [Entitic mass]31.3 pg26.0 - 34.0 pgClevelOwatonna ClinicHC (RBC) [Mass/Vol]33.2 g/dL30.5 - 36.0 g/dLSelect Medical [facility] Clinic Rehabilitation Hospital, Edwin ShawMCV (RBC) [Entitic vol]94.3 fL80.0 - 100.0 fLClevelnovant health ballantyne medical center ClinicMonocytes (Bld) [#/Vol]0.62 10*3/uLNINFSelect Medical [facility] Monocytes/100 WBC (Bld)7.3 %[facility] ShawNeutrophils (Bld) [#/Vol]5.12 10*3/uLSelect Medical [facility] Rehabilitation Hospital, Edwin ShawNeutrophils/100 WBC (Bld)60.0 %[facility] ShawNucleated RBC (Bld) [#/Vol]NINFClevelOhio Valley HospitalNucleated RBC/100 WBC (Bld) [Ratio]0.0 % /100 WBCSelect Medical [facility] Clinic Rehabilitation Hospital, Edwin ShawPlatelet mean volume (Bld) [Entitic vol]8.9 fLLow9.0 - 12.7 fLClevelOhio Valley HospitalPlatelets (Bld) [#/Vol]331 10*3/uLSelect Medical [facility] Clinic Rehabilitation Hospital, Edwin ShawRBC (Bld) [#/Vol]5.05 10*6/uL3.90 - 5.20 m/Doctors HospitalWBC (Bld) [#/Vol]8.53 10*3/[facility] HospitalComprehensive metabolic 2000 panelOrdered By: Nova Degroot on 33-87-3451Opnoaot [Mass/Vol]4.7 g/dL3.9 - 4.9 g/dL Madison HealthP [Catalytic activity/Vol]85 U/L34 - 123 U/LCleveland [facility] ALT [Catalytic activity/Vol]48 U/LHigh7 - 38 U/LCleveland ClinicAnion gap [Moles/Vol]10 mmol/L9 - 18 mmol/LCleveland ClinicAST [Catalytic activity/Vol]37 U/LHigh13 - 35 U/LCleveland ClinicBilirubin [Mass/Vol]0.4 mg/dL0.2 - 1.3 mg/dL [facility] ShawCalcium [Mass/Vol]10.1 mg/dL8.5 - 10.2 mg/dLSelect Medical [facility] Chloride [Moles/Vol]99 mmol/L97 - 105 mmol/LCleveland ClinicCO2 [Moles/Vol]30 mmol/L22 - 30 mmol/LCleveland ClinicCreatinine [Mass/Vol]0.70 mg/dL0.58 - 0.96 mg/dLDry Run ClinicGFR/1.73 sq M.predicted among non-blacks MDRD (S/P/Bld) [Vol rate/Area]112 mL/min/{1.73_m2}- PINFCleveland ClinicComment on above: Estimated Glomerular Filtration Rate (eGFR) is calculated using the 2020 CKD-EPI creatinine equation. This equation utilizes serum creatinine, sex, and age as parameters. The creatinine assay has traceable calibration to isotope dilution- mass spectrometry. Refer to KDIGO guidelines for clinical interpretation. In patients with unstable renal function, e.g. those with acute kidney injury, the eGFRmay not accurately reflect actual GFR.Glucose [Mass/Vol]102 mg/hJQfev33 - 99 mg/dLSelect Medical [facility] Clinic Rehabilitation Hospital, Edwin ShawComment on above:The [place] Diabetes [employer] (ADA) provides guidance for cutoff values for fasting glucose andrandom glucose. The ADA defines fasting as no caloric intake for at least 8 hours. Fasting plasma gl ucose results between 100 to 125 mg/dL indicate [...] Standards of Medical Care in Diabetes 2016, [place] [employer]. Diabetes Care. 2016.39(Suppl 1). Interpretation and review of laboratory resultsAbnormalCleveland ClinicPotassium [Moles/Vol]4.4 mmol/L3.7 - 5.1 mmol/LCleveland ClinicProtein [Mass/Vol]7.7 g/dL 6.3 - 8.0 g/dLDry Run ClinicSodium [Moles/Vol]139 mmol/L136 - 144 mmol/L Ivy ClinicUrea nitrogen [Mass/Vol]15 mg/dL7 - 21 mg/dLHighland District Hospital ClinicGLUCOSE, BLOOD (POC)on 20-41-4213Myknyii [Mass/Vol]89 mg/dL74 - 99 mg/dLSelect Medical [facility] Clinic Rehabilitation Hospital, Edwin ShawComment on above:Location:[facility], [address] [place] [address] , [place], [place], [address] The Accu-Chek Inform II glucose meter has [...] blood gas instrument) in the above situations. [facility] PET/CT SKULL-THIGH SUBQon 80-87-7027Xiiuyuvio Study observation (narrative)NOMS HealthcarePET+CT Guidance for localization of tumor of Skull base to mid-thigh-- W 18F-FDG Amira 76-85-9194Hqhdpikoh Study observation (narrative)[facility] ShawCORTISOL BLDon 67-48-7758Nyyurdaz [Mass/Vol]1.6 ug/dLLow4.8 - 19.5 ug/dLBucyrus Community Hospital Westergren method (Bld) [Velocity]on 76-25-0800YOW (Bld) [Velocity]2 mm/h0 - 20 mm/hrSelect Medical [facility] Clinic Rehabilitation Hospital, Edwin ShawT4/FTI/T4Uon 40-23-0419QPC4.5 ug/dL5.3 - 10.8 ug/dLSelect Medical [facility] Clinic Rehabilitation Hospital, Edwin ShawT4 [Mass/Vol]7.6 ug/dL5.5 - 10.2 ug/dLBarney Children's Medical Center4 uptake [Mass/Vol]1.010.91 - 1.19Chillicothe HospitalH BLDon 90-40-6378FWJ Qn1.820 m[IU]/L0.270 - 4.200 mIU/L [facility] W Auto Differential panel (Bld)on 09-44-1004Gplrcoadr (Bld) [#/Vol]<0.11 k/uLSelect Medical [facility] Clinic Rehabilitation Hospital, Edwin ShawBasophils/100 WBC (Bld)0.2 %[facility] Differential cell count method Nom (Bld)AutoCleveland ClinicEosinophils (Bld) [#/Vol]0.21 10*3/uL<0.46 k/uLSelect Medical [facility] Clinic Rehabilitation Hospital, Edwin ShawEosinophils/100 WBC (Bld)2.6 % [facility], [facility] ShawErythrocyte distribution width (RBC) [Ratio]13.8 %11.5 - 15.0 % [facility], [facility] ShawHematocrit (Bld) [Volume fraction]44.6 %36.0 - 46.0 %[facility], [facility] ShawHemoglobin (Bld) [Mass/Vol]14.6 g/dL11.5 - 15.5 g/dLSelect Medical [facility] Immature granulocytes (Bld) [#/Vol]0.08 10*3/uL<0.10 k/uLSelect Medical [facility] Clinic [facility] Immature granulocytes/100 WBC (Bld)1.0 %[facility], Edwin ShawLymphocytes (Bld) [#/Vol]2.56 10*3/uL1.00 - 4.00 k/uLSelect Medical [facility] Clinic Rehabilitation Hospital, Edwin ShawLymphocytes/100 WBC (Bld)32.0 %[facility], [facility] ShawMCH (RBC) [Entitic mass]31.1 pg26.0 - 34.0 pgCleveland [facility] MCHC (RBC) [Mass/Vol]32.7 g/dL30.5 - 36.0 g/dLSelect Medical [facility] Rehabilitation Hospital, Edwin ShawMCV (RBC) [Entitic vol]94.9 fL80.0 - 100.0 fLCleveland ClinicMonocytes (Bld) [#/Vol]0.62 10*3/uL <0.87 k/uLSelect Medical [facility] Clinic Rehabilitation Hospital, Edwin ShawMonocytes/100 WBC (Bld)7.7 %[facility] Neutrophils (Bld) [#/Vol]4.52 10*3/uL1.45 - 7.50 k/[facility] Neutrophils/100 WBC (Bld)56.5 %[facility] ShawNucleated RBC (Bld) [#/Vol]<0.01 k/uLSelect Medical [facility] Clinic Rehabilitation Hospital, Edwin ShawNucleated RBC/100 WBC (Bld) [Ratio]0.0 /100 WBCSelect Medical [facility] Clinic Rehabilitation Hospital, Edwin ShawPlatelet mean volume (Bld) [Entitic vol]9.0 fL9.0 - 12.7 fLCleveland ClinicPlatelets (Bld) [#/Vol]320 10*3/uL150 - 400 k/uLSelect Medical [facility] Clinic Rehabilitation Hospital, Edwin ShawRBC (Bld) [#/Vol]4.70 10*6/uL3.90 - 5.20 m/uLSelect Medical [facility] Clinic Rehabilitation Hospital, Edwin ShawWBC (Bld) [#/Vol]8.01 10*3/uL 3.70 - 11.00 k/uLSelect Medical [facility] Clinic Rehabilitation Hospital, Edwin ShawComprehensive metabolic 2000 panelon 01-01-2023 Albumin [Mass/Vol]4.5 g/dL3.9 - 4.9 g/dLDry Run ClinicALP [Catalytic activity/Vol]93 U/L34 - 123 U/LCleveland ClinicALT [Catalytic activity/Vol]49 U/LHigh7 - 38 U/LCleveland ClinicAnion gap [Moles/Vol]9 mmol/L9 - 18 mmol/L [facility] Run ClinicAST [Catalytic activity/Vol]38 U/LHigh13 - 35 U/LCleveland ClinicBilirubin [Mass/Vol]0.2 mg/dL0.2 - 1.3 mg/dLDry Run ClinicCalcium [Mass/Vol]9.6 mg/dL8.5 - 10.2 mg/dLDry Run ClinicChloride [Moles/Vol]102 mmol/L97 - 105 mmol/LCleveland ClinicCO2 [Moles/Vol]28 mmol/L22 - 30 mmol/L [facility] ShawCreatinine [Mass/Vol]0.68 mg/dL0.58 - 0.96 mg/dLSelect Medical [facility] Estimated Glomerular Filtration Ukhb786 mL/min/1.73m>=60 mL/min/1.73mCleveland Maple Grove HospitalGlucose [Mass/Vol]102 mg/yOYfph69 - 99 mg/dLSelect Medical [facility], [facility] ShawPotassium [Moles/Vol]4.4 mmol/L3.7 - 5.1 mmol/LCleveland ClinicProtein [Mass/Vol]7.3 g/dL 6.3 - 8.0 g/dLDry Run ClinicSodium [Moles/Vol]139 mmol/L136 - 144 mmol/L [facility] ShawUrea nitrogen [Mass/Vol]9 mg/dL7 - 21 mg/dLSelect Medical [facility] Rehabilitation Hospital, Edwin ShawLD LACTATE DEHYDROon 59-08-0683WHA [Catalytic activity/Vol]283 U/EPbmd406 - 214 U/L [facility] ShawMAGNESIUM BLDon 53-43-3985Cpbgnkyzb [Mass/Vol]2.5 mg/dLHigh1.7 - 2.3 mg/dLSelect Medical [facility] Hospital, Edwin ShawCNPNon 41-42-5308MEJQGdfahvqux (CNFVM) CELSO WELLER ([id number]) 1980 F Date Time Provider Department 10/18/22 [facility] During your visit today, we recorded the following information about you: Kylie Mosher RN 10/18/2022 3:19 PM Addendum Prior Authorization Documentation Prior authorization requested via Covermymeds for the following medication: Medication: Lyrica 100 mg capsules Approved and authorizes your coverage from 02/18/2022 - 02/17/2023, Insurance Company Name: [employer] Phone number: [phone] Patient ID number: [id number] Osorio [id number] Pharmacy Name: [facility] Telephone number: [phone] Kylie Mosher RN October 18, 2022 1:38 PM Allergies As of Date: 10/18/2022 Noted Allergy Reaction CHLORHEXIDINE 03/11/2013 9 - Itching Comments: Severe skin irritation. Had used for central line care SULFA (SULFONAMIDE ANTIBIOTICS) 01/07/2012 2 - Rash Date Reviewed: 10/18/2022 Reviewed by: Irene Han APRN.TRAINING AND DEVELOPMENT DIRECTOR - Fully Assessed Reason for Visit: Insurance [...] C No.3 (B COMPLEX PLUS VITAMIN C) 22-04-85-5-300 mg cap Take 1 tablet by mouth [...] [V999.95] 03/16/2013 Insomnia [G47.00] (more content not included)...NormalFairview HospitalGLUCOSE, BLOOD (POC)on 09-13-8447Mkklqel [Mass/Vol]103 mg/hIDgjfilwc99 - 99 mg/dL [facility] ShawComment on above:Location:[facility], [address] [place] [address] [place], [place], [address] The Accu-Chek Inform II glucose meter has [...] above situations. Interpretation and review of laboratory resultsAbnormalCTogus VA Medical CenterPET+CT Guidance for localization of tumor of Skull base to mid-thigh-- W 18F-FDG Amira 47-21-1781QQUMKHRLQR: 1. HEAD and NECK: No evidence of [...] any questions regarding this interpretation, please call [phone]. If you are unable to reach us at the number above, please feel free to contact [facility] eRadiology at [phone].DIVISION OF RADIOLOGY* * *Final Report* * * DATE OF [...] neoplastic process. Degenerative arthritic change. DIVISION OF RADIOLOGYProvider, [facility] [place] - 08/14/2022 * * *Final Report* * [...] any questions regarding this interpretation, please call [phone]. If you are unable to reach us at the number above, please feel free to contact [facility] eRadiology at [phone]. [facility] ShawRadiology Study observation (narrative)[facility] ShawPET+CT Guidance for localization of tumor of Skull base to mid-thigh-- W 18F-FDG IV Ordered By: Ccf Provider on 50-55-0685Llutkncrd Maple Grove HospitalCBC AUTO DIFFon 06-21-2022 BASO #0.0 103/ulNormal0.0-0.1The [facility] Mercy HospitalComment on above:Performed By: #### CBC #### [facility] [address] [address] [address] Kristina MoralesBasophils/100 WBC (Bld)0.4 %Normal0.2-2.0[facility] Comment on above:Performed By: #### CBC #### [facility] [address] [address] [address] Kristina Thompson #0.2 103/ulNormal0.0-0.7The [facility] Mercy HospitalComment on above: Performed By: #### CBC #### [facility] [address] [address] [address] Kristina Kolbosinophils/100 WBC (Bld)2.9 %Normal0.9-7.0[facility] Comment on above:Performed By: #### CBC #### [facility] [address] [address] [address] Kristina Kolbrythrocyte distribution width (RBC) [Ratio]13.7 %Rjcnrx26.0-15.0 The [facility] Mer[facility] HospitalComment on above:Performed By: #### CBC #### [facility] [address] [address] [address] Kristina MoralesHematocrit (Bld) [Volume fraction]44.2 %Vohohe95.0-48.0The [facility] HospitalComment on above:Performed By: #### CBC #### [facility] [address] [place] [address] Dr. Kristina MoralesHemoglobin (Bld) [Mass/Vol]14.9 g/fVVaswio96.0-16.0The [facility] on above:Performed By: #### CBC #### [facility] [address] [place] [address] Dr. Kristina Goncalves #0.02 10e3/ulNormal0.00-0.03The [facility] Mercy HospitalComment on above:Performed By: #### CBC #### [facility] [address] [place] [address] Dr. Kristina Goncalves %0.3 %Normal0.0-0.5The [facility] Mercy HospitalComment on above: Performed By: #### CBC #### [facility] [address] [place] [address] Dr. Kristina Vazquez #2.0 103/ulNormal1.2-3.8The [facility] HospitalComment on above:Performed By: #### CBC #### [facility] [address] [place] [address] Dr. Kristina Lorahocytes/100 WBC (Bld)27.8 %Vwvdfk91.5-60.0The [facility] Mer[facility] HospitalComment on above:Performed By: #### CBC #### [facility] [address] [place] [address] Dr. Kristina TaveraUAL DIFF REQNONormalThe [facility] Mer[facility] HospitalComment on above: Performed By: #### CBC #### [facility] [address] [place] [address] Dr. Kristina George (RBC) [Entitic mass]32.0 taMlvbus12.7-34.0The [facility] HospitalComment on above:Performed By: #### CBC #### [facility] [address] [place] [address] Dr. Kristina George (RBC) [Mass/Vol]33.7 g/yMWvdcpq13.9-35.2The [facility] HospitalComment on above:Performed By: #### CBC #### [facility] [address] [address] [address] Kristina GeorgeV (RBC) [Entitic vol]94.8 cNQvofak34.0-99.0The [facility] Hospitalment on above:Performed By: #### CBC #### [facility] [address] [place] [address] Dr. Kristina Shabazz #0.7 103/ulNormal0.3-0.8The [facility] HospitalComment on above:Performed By: #### CBC #### [facility] [address] [place] [address] Dr. Kristina Dinhocytes/100 WBC (Bld)9.5 %Normal1.7-12.0The [facility] Comment on above:Performed By: #### CBC #### [facility] [address] [place] [address] Dr. Kristina KirkpatrickUT #4.2 103/ulNormal1.4-6.5The [facility] HospitalComment on above:Performed By: #### CBC #### [facility] [address] [place] [address] Dr. Kristina Kirkpatrickutrophils/100 WBC (Bld)59.1 %Vxpbpo69.0-75.0The [facility] HospitalComment on above:Performed By: #### CBC #### [facility] [address] [place] [address] Dr. Kristina Gonzalezlet mean volume (Bld) [Entitic vol]9.1 fLCritically low 9.5-13.5The [facility] HospitalComment on above:Performed By: #### CBC #### [facility] [address] [place] [address] Dr. Kristina MoralesPLT302 103/wqAnvcfy948-640Cyy [facility] HospitalComment on above: Performed By: #### CBC #### [facility] [address] [place] [address] Dr. Kristina MoralesRBC4.66 106/ulNormal4.20-5.40The [facility] HospitalComment on above:Performed By: #### CBC #### [facility] [address] [address] [address] Kristina MoralesWBC7.2 103/ulNormal4.0-11.0The [facility] HospitalComment on above: Performed By: #### CBC #### [facility] [address] [address] [address] Kristina MoralesCRPon 41-41-0997SYF1.2 mg/dLCritically high<=1.0The [facility] HospitalComment on above:Performed By: #### CRP, BMP #### [facility] [address] [address] [address] Kristina MoralesCT HEAD WO CONon 70-24-0768KQ HEAD WO CONEXAM: CT HEAD WO CON 06/21/2022 5:09 AM [...] Electronically authenticated by: CONG ALMANZAR Date: 2022-06-21 05:34NoSalem City HospitalPROF CHEM 8 (BAS METB)on 64-12-6729Qntzd gap [Moles/Vol]11.9 mmol/LNormalThe [facility] on above:Performed By: #### CRP, BMP #### [facility] [address] [place] [address] Dr. Kristina MoralesCalcium [Mass/Vol]9.5 mg/dLNormal8.5-10.1[facility] Comment on above:Performed By: #### CRP, BMP #### [facility] [address] [address] [address] Kristina MoralesChloride [Moles/Vol]106 mmol/IZdbixh27-706Cft [facility] Comment on above:Performed By: #### CRP, BMP #### [facility] [address] [address] [address] Kristina MoralesCO2 [Moles/Vol]26.7 mmol/ZLinzxg41.0-32.0The [facility] Comment on above:Performed By: #### CRP, BMP #### [facility] [address] [address] [address] Kristina MoralesCreatinine [Mass/Vol]0.91 mg/dLNormal0.55-1.02The [facility] HospitalComment on above:Performed By: #### CRP, BMP #### [facility] [address] [address] [address] Kristina KolbGFR-AF SWISS>60Normal>=60The [facility] Mer[facility] HospitalComment on above:Performed By: #### CRP, BMP #### [facility] [address] [address] [address] Kristina KolbGFR-NON AF SWISS>60Normal>=60The [facility] HospitalComment on above:Performed By: #### CRP, BMP #### [facility] [address] [address] [address] Kristina MoralesGlucose [Mass/Vol]118 mg/dLCritically naen21-886Azj [facility] HospitalComment on above:Performed By: #### CRP, BMP #### [facility] [address] [address] [address] Kristina MoralesPotassium [Moles/Vol]3.6 mmol/LNormal3.5-5.1The [facility] Comment on above:Performed By: #### CRP, BMP #### [facility] [address] [address] [address] Kristina MoralesSodium [Moles/Vol]141 mmol/SPdjtge848-129Xel [facility] Comment on above:Performed By: #### CRP, BMP #### [facility] [address] [address] [address] Kristina MoralesUrea nitrogen [Mass/Vol]17.0 mg/dLNormal7.0-18.0The [facility]efania HospitalComment on above:Performed By: #### CRP, BMP #### [facility] [address] [place], [place] [address] Dr. Kristina MoralesUrea nitrogen/Creatinine [Mass ratio]18.7 mg/mgNormPremier Health Atrium Medical Center on above:Performed By: #### CRP, BMP #### [facility] [address] [place], [place] [address] Dr. Kristina MoralesCT CHEST WO IVCONon 42-74-9445Kxkbtnuki ClinicGLUCOSE, BLOOD (POC)on 91-44-6430Oopmfzj [Mass/Vol]95 mg/dL74 - 99 mg/dLSelect Medical [facility] Rehabilitation Hospital, Edwin ShawComc.[facility]. [facility] on above:Location:[facility], [address] [place] [address] , [place], [place], [address] The Accu-Chek Inform II glucose meter has [...] blood gas instrument) in the above situations. [facility] ShawPE+CT Guidance for localization of tumor of Skull base to mid-thigh-- W 18F-FDG Amira 71-95-1175ITZHIRXQOB: 1. NECK: * Unchanged mildly hypermetabolic level [...] any questions regarding this interpretation, please call [phone]. If you are unable to reach us at the number above, please feel free to contact [facility] at [phone].DIVISION OF RADIOLOGY* * *Final Report* * * DATE OF [...] chest 05/29/[address] abdomen/pelvis 03/02/2019 RESULT: Artist Mannequin Coloring (topogram) images: No additional findings. - Mediastinum [...] changes. No destructive osseous lesions. DIVISION OF RADIOLOGYProvider, [facility] [place] - 02/26/2022 * * *Final Report* * [...] chest 05/29/[address] abdomen/pelvis 03/02/2019 RESULT: Artist Mannequin Coloring (topogram) images: No additional findings. - Mediastinum [...] WOODARD MD This examination (more content not included)...[facility] ShawRadiology Study observation (narrative)[facility] ShawPET+CT Guidance for localization of tumor of Skull base to mid-thigh-- W 18F-FDG IVOrdered By: Ccf Provider on 02-26-2022 [facility] ShawCNOVon [id number] Visit (CNFVM) CELSO WELLER ([id number]) 1980 F TRN Date Time Provider Department 01/25/22 2:30 PM IRENE HAN [facility] During your visit today, we recorded [...] for symptom control needs. Subjective [facility] 10/26/21 Presents today alone. Reports [...] treadmill. She will be meeting with a background check coordinator to better understand the equipment upcoming. Has had some nausea since starting doxy for acne. Responsive to Compazine. Modified ESAS ([place] Symptom Assessment Scale) Information Provided By: Patient [...] activity was identified. 01/25/2022 by Irene Han APRN.TRAINING AND DEVELOPMENT DIRECTOR Urine Screen Lab Results Component Value Date UAMPH Negative 02/24/2021 UBARB2 Negative 02/24/2021 UBENZ Negative 02/24/2021 UQBUPRE <20 02/24/2021 UQNORBUP <20 02/24/2021 UCOC2 Negative 02/24/2021 UQCANN <16 02/24/2021 UOPI Negative 02/24/2021 UOXYC Negative 02/24/2021 UPCP Negative 02/24/2021 UTHC Negative 02/24/2021 UETOH <11 0 (more content not included)...NormalGardner State HospitalPAIN PANEL, UR QUANTon 83918-Dgqxkovvii-6,1-Vdvmdimg-4,3-Diphenylpyrrolidine (EDDP) Confirm (U) [Mass/Vol]<6Normal<6Fsouthcoast [facility] hospital HospitalComment on above:Order Comment: Specimen Type: URINE SPECIMEN Ordering Facility: [facility] Address: [address] [place] [id number] Comment: EDDP is a metabolite of methadone.Performed By: #### [id number] #### [facility] CLIA [id number] [address] [facility] [place] [address] [place]6-Monoacetylmorphine (6-BERNIE) (U) [Mass/Vol]<5Normal<5Fsouthcoast behavioral health hospital HospitalComment on above:Order Comment: Specimen Type: URINE SPECIMEN Ordering Facility: [facility] Address: [address] [place], [place] [address]Result Comment: 6-BERNIE (6- monoacetylmorphine, also known as 6-acetylmorphine) is a unique metaboliteof heroin. Presence of 6-BERNIE indicates use of heroin. 6-BERNIE is further metabolized to morphine and absence of 6-BERNIE does not rule out the use of heroin.Performed By: #### [id number] #### [facility] [place] [id number] [address] [place] [address] [place] AMERICAAmphetamine Confirm (U) [Mass/Vol]<5Normal<5Fairview HospitalComment on above:Order Comment: Specimen Type: URINE SPECIMEN Ordering Facility: [facility] Address: [address] [place], [place] [address]Performed By: #### [id number] #### [facility] IA [id number] [address] [place] [address] [place] AMERICABenzoylecgonine Confirm (U) [Mass/Vol]<24Normal<24Fairview HospitalComment on above:Order Comment: Specimen Type: URINE SPECIMEN [facility]ing Facility[facility] Address: [address] [place], [place] [address]Result Comment: Benzoylecgonine is a metabolite of cocaine.Performed By: #### [id number] #### [facility] IA [id number] [address] [place] [address] [place] AMERICABuprenorphine (U) [Mass/Vol] <20Normal<20[facility]view HospitalComment on above:Order Comment: Specimen Type: URINE SPECIMEN Ordering Facility[facility] Address: [address] [place], [place] [address]Performed By: #### [id number] #### [facility] CLIA [id number] [address] [place] [address] [place] AMERICACannabinoids Confirm (U) [Mass/Vol]<16Normal<16Fairview HospitalComment on above:Order Comment: Specimen Type: URINE SPECIMEN Ordering Facility[facility] Address: [address] [place], [place] [address]Result Comment: Tetrahydrocannabinol carboxylic acid (THCA) is a metabolite of pdeob-2-aprsyqlrarztwdfvfeqh which is the main active component of marijuana. Performed By: #### [id number] #### [facility] CLIA [id number] [address] [place] [address] [place] AMERICACodeine Confirm (U) [Mass/Vol]<11Normal<11Fairview HospitalComment on above:Order Comment: Specimen Type: URINE SPECIMEN Ordering Facility: [facility] Address: [address] [place], [place] [address]Performed By: #### [id number] #### [facility] CLIA [id number] [address] [place] [address] [place] AMERICADihydrocodeine Confirm (U) [Mass/Vol]<5Normal<5[facility]view HospitalComment on above:Order Comment: Specimen Type: URINE SPECIMEN [facility]ing Facility[facility] Address: [address] [place], [place] [address]Performed By: #### [id number] #### [facility] CLIA [id number] [address] [place] [address] [place] AMERICAfentaNYL Confirm (U) [Mass/Vol]<6Normal<6Fairview HospitalComment on above:Order Comment: Specimen Type: URINE SPECIMEN Ordering Facility[facility] Address: [address] [place], [place] [address]Performed By: #### [id number] #### [facility] CLIA [id number] [address] [place] [address] [place] AMERICAHYDROcodone Confirm (U) [Mass/Vol]<8Normal<8Fairview HospitalComment on above:Order Comment: Specimen Type: URINE SPECIMEN Ordering [facility] Address: [address]Result Comment: Hydrocodone is a metabolite of dihydrocodeine.Performed By: #### [id number] #### [facility] IA [id number] [address] [place] [address] [place] AMERICAHYDROmorphone Confirm (U) [Mass/Vol]<5Normal<5[facility]view HospitalComment on above:Order Comment: Specimen Type: URINE SPECIMEN Ordering Facility: [facility] Address: [address] [place], [place] [address]Result Comment: Hydromorphone is a metabolite of hydrocodone.Performed By: #### [id number] #### [facility] IA [id number] [address] [place] [address] [place] AMERICAMethadone Confirm (U) [Mass/Vol]<16Normal<16[facility] HospitalComment on above:Order Comment: Specimen Type: URINE SPECIMEN Ordering [facility] Address: [address]Performed By: #### [id number] #### [facility] CLIA [id number] [address] [place] [address] [place] AMERICAMethamphetamine Confirm (U) [Mass/Vol]<8Normal<8[facility]view HospitalComment on above:Order Comment: Specimen Type: URINE SPECIMEN Ordering [facility] Address: [address] [place], [place] [address]Performed By: #### [id number] #### [facility] CLIA [id number] [address] [place] [address] [place] AMERICAMorphine Confirm (U) [Mass/Vol]<10Normal<10[facility]view HospitalComment on above:Order Comment: Specimen Type: URINE SPECIMEN Ordering Facility[facility] Address: [address] [place] [address]Result Comment: Morphine is a metabolite of codeine and heroin.Performed By: #### [id number] #### [facility] CLIA [id number] [address] [address] [place] AMERICANorbuprenorphine (U) [Mass/Vol]<20Normal<20Fairmercy health HospitalComment on above:Order Comment: Specimen Type: URINE SPECIMEN Ordering Facility[facility] Address: [address] [place] [address]Result Comment: Norbuprenorphine is the primary active metabolite of buprenorphine.Performed By: #### [id number] #### [facility] CLIA [id number] [address] [address] [place] OF AMERICANorfentanyl Confirm (U) [Mass/Vol]<6Normal<6Fairmercy health HospitalComment on above:Order Comment: Specimen Type: URINE SPECIMEN Ordering Facility[facility] Address: [address] [place] [address]Result Comment: Norfentanyl is a metabolite of fentanyl.Performed By: #### [id number] #### [facility] CLIA [id number] [address] [address] [place] AMERICANortramadol (U) [Mass/Vol] <20Normal<20[facility] HospitalComment on above:Order Comment: Specimen Type: URINE SPECIMEN Ordering Facility[facility] Address: [address] [place], [place] [address]Result Comment: Desmethyltramadol is a metabolite of tramadol.Performed By: #### [id number] #### [facility] CLIA [id number] [address] [address] [place] AMERICANOTE,UR PAIN PANNormal Ringgold HospitalComment on above:Order Comment: Specimen Type: URINE SPECIMEN Ordering Facility[facility] Address: [address] [place], [place] [address]Result Comment: This test is for medical use only. This test was developed and its performance characteristics determined by [facility] Pathology and Laboratory Medicine [place] (RT-PLMI). It has not been cleared or approved by the FDA. -[facility] is regulated under CLIA as qualified to perform high-complexity testing. Thistest is used for clinical purposes. It should not be regarded as investigational or for research.Performed By: #### [id number] #### [facility] CLIA [id number] [address] [place] [address] [place] [facility] HOSPITALoxyCODONE Confirm (U) [Mass/Vol]2574 ng/mLHigh<10Fairmercy health HospitalComment on above:Order Comment: Specimen Type: URINE SPECIMEN Ordering [facility] Address: [address] [place], [place] [address]Result Comment: Oxycodone is not a recognized metabolite of other opiates and its presence indicates use of an oxycodone containing drug. Oxycodone is metabolized to oxymorphone.Performed By: #### [id number] #### [facility] CLIA [id number] [address] [place] [address] STATES [facility]IAL HOSPITALoxyMORphone Confirm (U) [Mass/Vol]2296 ng/mLHigh<5Fairmer[facility] health HospitalComment on above:Order Comment: Specimen Type: URINE SPECIMEN Order[facility] Address: [address] [place], [place] [address]Result Comment: Oxymorphone may arise from oxymorphone containing drugs or by metabolism of oxycodone. Performed By: #### [id number] #### [facility] CLIA [id number] [address] [place] [address] [place] OF [facility]-FAIRHILLtraMADol Confirm (U) [Mass/Vol]<25Normal<25Fairmercy health HospitalComment on above:Order Comment: Specimen Type: URINE SPECIMEN [facility] Address: [address] [place], [place] [address]Performed By: #### [id number] #### [facility] CLIA [id number] [address] [place] [address] AMERICASPECIMEN VALIDITY, URINEon 56-70-6753ZYBFKFRJ,URINE<10Normal<50[facility] HospitalComment on above:Order Comment: Specimen Type: URINE SPECIMEN Order[facility] Address: [address] [place], [place] [address]Performed By: #### [id number] #### [facility] CLIA [id number] [address] [place] [address] [place] AMERICACREATININE,URINE78.6 mg/dL Gouesc97.0-300.0Fa[facility] hospital HospitalComment on above:Order Comment: Specimen Type: URINE SPECIMEN [facility] Address: [address] [place], [place] [address]Performed By: #### [id number] #### [facility] CLIA [id number] [address] [place] [address] [place] AMERICANITRITES,URINE<50Normal<500 [facility] HospitalComment on above:Order Comment: Specimen Type: URINE SPECIMEN [facility] Address: [address] [place], [place] [address]Performed By: #### [id number] #### [facility] CLIA [id number] [address] [place] [address] [place] AMERICAOXIDANTS,URINE58 mg/LNormal <200[facility] HospitalComment on above:Order Comment: Specimen Type: URINE SPECIMEN [facility] Address: [address] [place], [place] [address]Performed By: #### [id number] #### [facility] CLIA [id number] [address] [place] [address] [place] AMERICApH (U)5.7 [pH]Normal4.5-8.0 [facility] HospitalComment on above:Order Comment: Specimen Type: URINE SPECIMEN [facility] Address: [address] [place], [place] [address]Performed By: #### [id number] #### [facility] CLIA [id number] [address] GRAVITY,UR1.010Normal 1.003-1.035FaKenmore HospitalComment on above:Order Comment: Specimen Type: URINE SPECIMEN [facility] Address: [address] [place], [place] [address]Performed By: #### [id number] #### [facility] CLIA [id number] [facility] [address]SPECIMEN VALIDITY QUALITY Specimen quality results within acceptable limitsNoAddison Gilbert HospitalComc.s. [facility] on above:Order Comment: Specimen Type: URINE SPECIMEN [facility] Address: [address] [place], [place] [address]Performed By: #### [id number] #### [facility] CLIA [id number] [address] [place] [address] W Auto Differential panel (Bld)on [id number] Immature Gran0.03 k/uL<0.10 k/uLSelect Medical [facility] Basophils (Bld) [#/Vol]0.03 10*3/uL<0.11 k/uLSelect Medical [facility] Clinic [facility] Hospital, [facility] ShawBasophils/100 WBC (Bld)0.4 %[facility] ShawDifferential cell count method Nom (Bld)AutoCleveland ClinicEosinophils (Bld) [#/Vol]0.34 10*3/uL<0.46 k/uLSelect Medical [facility] Eosinophils/100 WBC (Bld)4.8 %[facility] ShawErythrocyte distribution width (RBC) [Ratio]13.8 %11.5 - 15.0 %[facility] ShawHematocrit (Bld) [Volume fraction]44.4 %36.0 - 46.0 %[facility] ShawHemoglobin (Bld) [Mass/Vol]14.8 g/dL 11.5 - 15.5 g/dLSelect Medical [facility] Clinic Rehabilitation Hospital, Edwin ShawImmature Gran %0.4 %[facility] ShawLymphocytes (Bld) [#/Vol]1.62 10*3/uL1.00 - 4.00 k/uLSelect Medical [facility] Clinic Rehabilitation Hospital, Edwin ShawLymphocytes/100 WBC (Bld)23.0 %[facility] HospitalH (RBC) [Entitic mass]31.6 pg26.0 - 34.0 pg [facility] HospitalHC (RBC) [Mass/Vol]33.3 g/dL30.5 - 36.0 g/dLSelect [facility] MCV (RBC) [Entitic vol]94.7 fL80.0 - 100.0 fLCleveland ClinicMonocytes (Bld) [#/Vol]0.51 10*3/uL<0.87 k/uLSelect Medical [facility] Clinic Rehabilitation Hospital, Edwin ShawMonocytes/100 WBC (Bld)7.3 % [facility] ShawNeutrophils (Bld) [#/Vol]4.50 10*3/uL1.45 - 7.50 k/uLSelect Medical [facility] Clinic Rehabilitation Hospital, Edwin ShawNeutrophils/100 WBC (Bld)64.1 %[facility] ShawNucleated RBC (Bld) [#/Vol] <0.01 k/uLSelect Medical [facility] Clinic Rehabilitation Hospital, Edwin ShawNucleated RBC/100 WBC (Bld) [Ratio]0.0 /100 WBC [facility] ShawPlatelet mean volume (Bld) [Entitic vol]9.6 fL9.0 - 12.7 fL [facility] ShawPlatelets (Bld) [#/Vol]310 10*3/uL150 - 400 k/uLSelect Medical [facility] Clinic [facility] RBC (Bld) [#/Vol]4.69 10*6/uL3.90 - 5.20 m/uLSelect Medical [facility] Clinic Rehabilitation Hospital, Edwin ShawWBC (Bld) [#/Vol] 7.03 10*3/uL3.70 - 11.00 k/Doctors HospitalComprehensive metabolic 2000 panel Ordered By: Saran Johnson on 20-69-4180Wanxmxf [Mass/Vol]4.3 g/dL3.9 - 4.9 g/dL [facility] HealthP [Catalytic activity/Vol]85 U/L34 - 123 U/LCleveland [facility] ALT [Catalytic activity/Vol]49 U/LHigh7 - 38 U/LCleveland ClinicAnion gap [Moles/Vol]9 mmol/L9 - 18 mmol/LCleveland ClinicAST [Catalytic activity/Vol]40 U/LHigh13 - 35 U/LCleveland ClinicBilirubin [Mass/Vol]0.2 mg/dL0.2 - 1.3 mg/dL [facility] ClinicCalcium [Mass/Vol]9.5 mg/dL8.5 - 10.2 mg/dLSelect Medical [facility] Chloride [Moles/Vol]104 mmol/L97 - 105 mmol/LCleveland ClinicCO2 [Moles/Vol]27 mmol/L22 - 30 mmol/LCleveland ClinicCreatinine [Mass/Vol]0.70 mg/dL0.58 - 0.96 mg/dLDry Run ClinicGFR/1.73 sq M.predicted among non-blacks MDRD (S/P/Bld) [Vol rate/Area]113 mL/min/{1.73_m2}- PINFCleveland Maple Grove HospitalComment on above: Estimated Glomerular Filtration Rate (eGFR) is calculated using the 2020 CKD-EPI creatinine equation. This equation utilizes serum creatinine, sex, and age as parameters. The creatinine assay has traceable calibration to isotope dilution- mass spectrometry. Refer to KDIGO guidelines for clinical interpretation. In patients with unstable renal function, e.g. those with acute kidney injury, the eGFRmay not accurately reflect actual GFR.Glucose [Mass/Vol]117 mg/lGYwme97 - 99 mg/dLSelect Medical [facility] Clinic Rehabilitation Hospital, Edwin ShawComment on above:The [place] Diabetes Association (ADA) provides guidance for cutoff values for fasting glucose andrandom glucose. The ADA defines fasting as no caloric intake for at least 8 hours. Fasting plasma gl ucose results between 100 to 125 mg/dL indicate [...] Standards of Medical Care in Diabetes 2016, [place] Diabetes Association. Diabetes Care. 2016.39(Suppl 1). Interpretation and review of laboratory resultsAbnormalCleveland ClinicPotassium [Moles/Vol]4.4 mmol/L3.7 - 5.1 mmol/LCleveland ClinicProtein [Mass/Vol]6.7 g/dL 6.3 - 8.0 g/dLCleselect medical specialty hospital - c[facility] north ClinicSodium [Moles/Vol]140 mmol/L136 - 144 mmol/L [facility] ShawUrea nitrogen [Mass/Vol]11 mg/dL7 - 21 mg/dLMarietta Memorial Hospitalveland ClinicFree T4 [Mass/Vol]on 41-24-0532Niacffdxmixuev and review of laboratory resultsNormalCTogus VA Medical CenterGLUCOSE, BLOOD (POC)on 29-23-0877Waatuym [Mass/Vol]105 mg/nWYxxaoynv63 - 99 mg/dLSelect Medical [facility] Comment on above:Location:[facility], [address] [place] [address] , [place], [place], [facility] The Accu-Chek Inform II glucose meter has [...] above situations. Interpretation and review of laboratory resultsAbnoLima Memorial HospitalPET+CT Guidance for localization of tumor of Skull base to mid-thigh-- W 18F-FDG Amira 37-50-3339HIUXZIIRZD: 1. NECK: * Resolution of FDG avidity [...] any questions regarding this interpretation, please call [phone]. If you are unable to reach us at the number above, please feel free to contact [facility] at [phone].DIVISION OF RADIOLOGY* * *Final Report* * * DATE OF [...] Employed: Yes COMPARISON: 08/15/2021 CORRELATION: None. RESULT: Artist Mannequin Coloring (topogram) images: No additional findings. - Mediastinum [...] SUV 8.8), presumed cutaneous inflammation. DIVISION OF RADIOLOGYProvider, [facility] [place] - 11/13/2021 * * *Final Report* * [...] Employed: Yes COMPARISON: 08/15/2021 CORRELATION: None. RESULT: Artist Mannequin Coloring (topogram) images: No additional findings. - Mediastinum [...] any questions regarding this interpretation, please call [phone]. If you are unable to reach us at the number above, please feel free to contact [facility] eRadiology at [phone]. [facility] ShawRadiology Study observation (narrative)[facility] ShawPET+CT Guidance for localization of tumor of Skull base to mid-thigh-- W 18F-FDG IV Ordered By: [facility] Provider on 91-42-2031Qlcpcvwak ClinicT FREE/FREE THYROXon 35-76-1406Lber T4 [Mass/Vol]1.1 ng/dL0.9 - 1.7 ng/dLCleveland Clinic Children's Hospital [facility] BLDon 09-11-3218CRU Qn1.920 m[IU]/[facility]caraw[facility] Hospitaland ClinicComment on above:If the patient is , TSH reference range varies by gestational period: First Trimester (weeks 9-12): 0.180-2.990 mIU/L Second Trimester: 0.110-3.980 mIU/L Third Trimester: 0.480-4.710 mIU/L Samuel Patel et al. A Practical Approach for the Verifications and Determination of Site- and Trimester-Specific Reference Intervals for Thyroid Function tests in . Thyroid, 2019:29:3:412-420.Mirza Lopes et al. 2017 Guidelines of the [place] Thyroid Association for the Diagnosis and Management of Thyroid Disease during and the . Thyroid, 2017:27:3:315-389. TSH [facility] 34-08-0695Chvordvvrzjevk and review of laboratory resultsNormal UC HealthCNOVon 35-84-5957YHJUQckget Visit (CNFVM) JANEECELSO Junior ([id number]) 1980 F TRN Date Time Provider Department 10/26/21 3:00 PM IRENE HAN [facility] During your visit today, we recorded the following information about you: Temperature Pulse Blood pressure Weight 97.7 degrees 100/minute 117/88 103 kg Irene Han APRN.CNP 10/26/2021 2:43 PM Signed PALLIATIVE MEDICINE PROGRESS NOTE SERVICE DATE: 10/26/2021 Primary Site of Disease/Medical Illness: Hodgkin Lymphoma Site of Metastasis: Liver, Lymph nodes, Spleen CHIEF COMPLAINT: follow up for pain PERTINENT MEDICAL HISTORY: Celso Welelr is a 41 yo female with Hodgkin's [...] care with [facility] visit 08/02. [facility]erred to [facility] palliative due to proximity [...] upcoming PET scan will show. Modified ESAS ([place] Symptom Assessment Scale) Information Provided By: Patient [...] Care, Hematology, Medical Onco (more content not included)...NormalBaystate Medical Center 82-21-7759NOY Qn1.230 m[IU]/L [facility] ShawComment on above:If the patient is , TSH reference range varies by gestational period: First Trimester (weeks 9-12): 0.180-2.990 mIU/L Second Trimester: 0.110-3.980 mIU/L Third Trimester: 0.480-4.710 mIU/L Samuel Patel et al. A Practical Approach for the Verifications and Determination of Site- and Trimester-Specific Reference Intervals for Thyroid Function tests in . Thyroid, 2019:29:3:412-420.Mirza Lopes et al. 2017 Guidelines of the [place] Thyroid Association for the Diagnosis and Management of Thyroid Disease during and the . Thyroid, 2017:27:3:315-389. TSH Qnon 83-45-6263Roezdozbtjigfk and review of laboratory resultsNormal [facility] W Auto Differential panel (Bld)on 08-15-2021 Basophils (Bld) [#/Vol]0.03 10*3/uLNINFSelect Medical [facility] Clinic Rehabilitation Hospital, Edwin ShawBasophils/100 WBC (Bld) 0.3 %[facility] ShawDifferential cell count method Nom (Bld)AutoCleveland ClinicEosinophils (Bld) [#/Vol]0.31 10*3/uLNINFSelect Medical [facility] Rehabilitation Hospital, Edwin ShawEosinophils/100 WBC (Bld)3.2 %[facility] ShawErythrocyte distribution width (RBC) [Ratio]14.1 % 11.5 - 15.0 %[facility] ShawHematocrit (Bld) [Volume fraction]42.3 %36.0 - 46.0 %[facility] ShawHemoglobin (Bld) [Mass/Vol]13.9 g/dL11.5 - 15.5 g/dLSelect Medical [facility] Clinic Rehabilitation Hospital, Edwin ShawImmature granulocytes (Bld) [#/Vol]NINFCleveland Maple Grove HospitalImmature granulocytes/100 WBC (Bld)0.2 %[facility] ShawLymphocytes (Bld) [#/Vol]1.80 10*3/uLSelect Medical [facility] Clinic Rehabilitation Hospital, Edwin ShawLymphocytes/100 WBC (Bld)18.4 %[facility] HospitalH (RBC) [Entitic mass]30.6 pg26.0 - 34.0 pgClevelOwatonna ClinicHC (RBC) [Mass/Vol]32.9 g/dL30.5 - 36.0 g/dLPike Community HospitalV (RBC) [Entitic vol]93.2 fL80.0 - 100.0 fLCleveland ClinicMonocytes (Bld) [#/Vol]0.56 10*3/uLNINFSelect Medical [facility] Monocytes/100 WBC (Bld)5.7 %[facility] ShawNeutrophils (Bld) [#/Vol]7.06 10*3/uLSelect Medical [facility] Clinic Rehabilitation Hospital, Edwin ShawNeutrophils/100 WBC (Bld)72.2 %[facility] ShawNucleated RBC (Bld) [#/Vol]NINFCleveland ClinicNucleated RBC/100 WBC (Bld) [Ratio]0.0 % /100 WBCDry Run ClinicPlatelet mean volume (Bld) [Entitic vol]9.0 fL9.0 - 12.7 fLCleveland ClinicPlatelets (Bld) [#/Vol]263 10*3/uLDry Run ClinicRBC (Bld) [#/Vol]4.54 10*6/uL3.90 - 5.20 m/uLDry Run ClinicWBC (Bld) [#/Vol]9.78 10*3/uL [facility] ShawThis is an appended report. These results have been appended to a previously verified report.UC HealthComprehensive metabolic 2000 panelOrdered By: Saran Johnson on 23-16-1482Assjark [Mass/Vol]4.2 g/dL3.9 - 4.9 g/dLDry Run ClinicALP [Catalytic activity/Vol]81 U/L34 - 123 U/L [facility] ClinicALT [Catalytic activity/Vol]50 U/LHigh7 - 38 U/LCleveland [facility] Anion gap [Moles/Vol]7 mmol/LLow9 - 18 mmol/LCleveland ClinicAST [Catalytic activity/Vol]43 U/LHigh13 - 35 U/LCleveland ClinicBilirubin [Mass/Vol]0.4 mg/dL 0.2 - 1.3 mg/dLDry Run ClinicCalcium [Mass/Vol]9.2 mg/dL8.5 - 10.2 mg/dL [facility] ShawChloride [Moles/Vol]107 mmol/LHigh97 - 105 mmol/LCleveland ClinicCO2 [Moles/Vol]28 mmol/L22 - 30 mmol/LCleveland ClinicCreatinine [Mass/Vol]0.56 mg/dLLow0.58 - 0.96 mg/dLSelect [facility] ShawGFR/1.73 sq M.predicted among non-blacks MDRD (S/P/Bld) [Vol rate/Area]119 mL/min/{1.73_m2}- PINF [facility] ShawComment on above:Estimated Glomerular Filtration Rate (eGFR) is calculated using the 2020 CKD-EPI creatinine equation. This equation utilizes serum creatinine, sex, and age as parameters. The creatinine assay has traceable calibration to isotope dilution-mass spectrometry. Refer to KDIGO guidelines for clinical interpretation. In patients with unstable renal function, e.g. those with acute kidney injury, the eGFRmay not accurately reflect actual GFR.Glucose [Mass/Vol]104 mg/wFFgoi82 - 99 mg/dLSelect Medical [facility], Edwin ShawComment on above:The [place] Diabetes Association (ADA) provides guidance for cutoff values for fasting glucose andrandom glucose. The ADA defines fasting as no [...] Standards of Medical Care in Diabetes 2016, [place] [employer]. Diabetes Care. 2016.39(Suppl 1). Interpretation and review of laboratory resultsAbnormalCleveland ClinicPotassium [Moles/Vol]4.4 mmol/L3.7 - 5.1 mmol/LCleveland ClinicProtein [Mass/Vol]6.7 g/dL 6.3 - 8.0 g/dLDry Run ClinicSodium [Moles/Vol]142 mmol/L136 - 144 mmol/L [facility] ShawUrea nitrogen [Mass/Vol]8 mg/dL7 - 21 mg/dLSouthern [place] Medical CenterESR Westergren method (Bld) [Velocity]on 23-12-4997FQO (Bld) [Velocity]5 mm/hCleveland ClinicInterpretation and review of laboratory results NormalUC HealthPET+CT Guidance for localization of tumor of Skull base to mid-thigh-- W 18F-FDG Amira 36-97-1243LJYEGSZWIC: 1. NECK: 0.8 x 0.5 cm left [...] any questions regarding this interpretation, please call [phone]. If you are unable to reach us at the number above, please feel free to contact [facility] at [phone]. ZZZ_DO_NOT_USE_DIVISION OF RADIOLOGY* * *Final Report* * * DATE OF [...] of subcentimeter FDG avid cutaneous uptake noted. TALK SHOW HOST (TOPOGRAM) IMAGES: No additional findings. ====== DarciZZ_DO_NOT_USE_DIVISION OF RADIOLOGYProvider, [facility] [place] - 08/[facility]21 * * *Final Report* * [...] of subcentimeter FDG avid cutaneous uptake noted. TALK SHOW HOST (TOPOGRAM) IMAGES: No additional findings. ====== IMPRESSION [...] by: JORDAN WOODARD MD (more content not included)...[facility] ShawRadiology Study observation (narrative)[facility] ShawPE+CT Guidance for localization of tumor of Skull base to mid-thigh-- W 18F-FDG IVOrdered By: Ccf Provider on 70-08-7817Sspyipzdd ClinicWOUND CULTUREon 63-58-3162Fhkhsrzk identified Aer cx Nom (Unsp spec)Final reportNoSalem City HospitalComment on above:Performed By: #### CXWND #### [facility] [address] [address] [address] Kristina Musa 1Mixed skin floraNoSalem City HospitalComment on above:Performed By: #### CXWND #### [facility] [address] [address] [address] Kristina MoralesInitial Visit (Otolaryngology)on 64-60-4383Tkcaqjh Visit (Otolaryngology)Diagnoses/Problems Dysphonia (784.42) (R49.0) Patient Discussion/Summary History of dysphonia. Thankfully, voice looks great. No evidence of any concerning irregularity such as nodules masses tumors etc. Suspect that probably the biggest contributing factor may very well be thickened mucus with recommendation for conservative strategies to help with that. This includes a ggressive hydration strategies in particular. Patient otherwise reassured and recommend see me backdepending how things fare. All questions were answered in this regard accordingly. Provider Impressions History of dysphonia. Thankfully, voice looks great. No evidence of any concerning irregularity such as nodules masses tumors etc. Suspect that probably the biggest contributing factor may very well be thickened mucus with recommendation for conservative strategies to help with that. This includes a ggressive hydration strategies in particular. Patient otherwise reassured and recommend see me backdepending how things fare. All questions were answered [...] and is reviewed with the patient and issigned by me on this date. Active Problems [...] to the laryngeal structure (more content not included)...NormalUH TouchworksCulture, Urineon 82-82-4028Trpkhsd, UrineORDER#: [id number] ORDERED BY: SHEILA LIN SOURCE: Urine Voided COLLECTED: 04/17/21 18:42 ANTIBIOTICS AT CECILY.: RECEIVED : 04/17/21 19:23 Culture, Urine FINAL 04/19/21 12:36 Cult,Urine: NO SIGNIFICANT GROWTH Performed at [address] [id number] ([phone] Park Medical CenterComment on above:Performed By: #### CXURN #### [facility] [address] [place] [address] Brxqxyokjs, reflex to microscopicon 10-76-8970Ejkfuusfn Ql (U) NegativeF F Thompson HospitalComment on above:Performed By: #### UA #### [facility] [address] [place] [address] Abwjdsg (U)ClearNormalClearNational Jewish HealthComment on above:Performed By: #### UA #### [facility] [address] [place] [address] Dgeop (U)YellowNormalStraw/YellNational Jewish HealthComment on above:Performed By: #### UA #### [facility] [address] [place] [address] Gpumaex Ql (U)[facility] Comment on above:Performed By: #### UA #### [facility] [address] [place] [address] Auquysvzeu Ql (U)[facility] Comment on above:Performed By: #### UA #### [facility] [address] [place] [address] Kvaorik Ql (U)NegativeF F Thompson Hospital Comment on above:Performed By: #### UA #### [facility] [address] [place] [address] Aimndfejk esterase Test strip Ql (U)TRACEAbnoCommunity HospitalComment on above:Performed By: #### UA #### [facility] [address] [place] [address] Znzuevr Ql (U)NegativeNormalNegMt. [facility] Hospital Comment on above:Performed By: #### UA #### [facility] [address] [place] [address] zS (U)6.0 [pH]Normal5.0-9.0National Jewish HealthComment on above:Performed By: #### UA #### [facility] [address] [place] [address] Givmtqq Ql (U)NegativeNormalNegMt. San [facility] Hospital Comment on above:Performed By: #### UA #### [facility] [address] [place] [address] Spfqetqu gravity (U) [Rel density]1.556Rzsaao9.005-1.03National Jewish HealthComment on above:Performed By: #### UA #### [facility] [address] [place] [address] Hfbbkzpmkmgb Qn (U)0.2 {Nuvia'U}/dLNormal< 2.0National Jewish HealthComment on above:Performed By: #### UA #### [facility] [address] [place] [address] Ypcbd Microscopicon 65-27-3354Thilskhy LM.HPF (Urine sed) [#/Area] NegativeNormalNegMt. San Rafael HospitalComment on above:Performed By: #### UMIC #### [facility] [address] [place] [address] Emlew Epithelial Cells Jkam6-3Tcchry6-0MaltmNational Jewish Health Comment on above:Performed By: #### UMIC #### [facility] [address] [place] [address] Dicbx Hyaline Casts Dppg1-2Djlomg4-8IdudsNational Jewish Health Comment on above:Performed By: #### UMIC #### [facility] [address] [place] [address] Doyie RBC Tnvf7-2Psusvo4-4Mxqye Regional Medical CenterComment on above:Performed By: #### UMIC #### [facility] [address] [place] [address] Vqbnz WBC Gjgw6-6Ywbjwj7-9Rnbg[address] [place], [place] [address]Comment on above:Performed By: #### UMIC #### [facility] [address] [place] [address] HEZ+CT Guidance for localization of tumor of Skull base to mid-thigh-- W 18F-FDG Amira 72-79-9431POMRCMOUTY: 1. Neck: No suspicious hypermetabolic foci 2. [...] any questions regarding this interpretation, please call [phone]. If you are unable to reach us at the number above, please feel free to contact [facility] at [phone].DIVISION OF RADIOLOGY* * *Final Report* * * DATE OF [...] right lateral chest wall (max SUV 4.6). Artist Mannequin Coloring (topogram) images:No additional findings. DIVISION OF RADIOLOGYProvider, [facility] [place] - 02/15/[facility]21 * * *Final Report* * [...] right lateral chest wall (max SUV 4.6). Artist Mannequin Coloring (topogram) images:No additional findings. IMPRESSION IMPRESSION: 1. [...] any questions regarding this interpretation, please call [phone]. If you are unable to reach us at the number above, please feel free to contact [facility] eRadiology at [phone]. Mercy HospitalT+CT Guidance for localization of tumor of Skull base to mid-thigh-- W 18F-FDG IVOrdered By: Ccf Provider on 00-98-6892Fqidvckcl Clinic GLUCOSE, BLOOD (POC)on 81-92-9761Mjehcok [Mass/Vol]97 mg/dL74 - 99 mg/dL [facility] ShawComment on above:Location:[facility], [address] [place] [address] , [place], [place], [address] The Accu-Chek Inform II glucose meter has [...] blood gas instrument) in the above situations. [facility] ShawPET+CT Guidance for localization of tumor of Skull base to mid-thigh-- W 18F-FDG Amira 50-75-8796Zjhaqhjmr Study observation (narrative) [facility] ShawCOVID Quick Testingon 88-58-5019TkxegsTfbbbunhSoujx Multifonds Other KNEE CMPLT, 4 OR MORE VIEWSon 60-85-7493HQMF CMPLT, 4 OR MORE VIEWSMRN: [id number] Patient Name: CELSO WELLER STUDY: KNEE; COMPLT, 4 OR MORE VIEWS; Left; 08/24/2019 3:23 pm INDICATION: Pain. ACCESSION NUMBER(S): [id number] ORDERING CLINICIAN: RENETTA GUERRERO FINDINGS: Left knee x-rays four views AP, lateral, tunnel and sunrise view: No acute fractures, no dislocation. No significant degenerative changes. Electronically signed by: RENETTA GUERRERO MDLehigh Valley Hospital - Pocono Free T4on 01-71-1525Klqu T4 [Mass/Vol]1.2 ng/dLNormal0.9-1.7CMercy Health Tiffin Hospital Reference LabComment on above:Performed By: #### FT4, TSH #### [facility] Routine Lab [address] [place], [place] [address] QZVyy 79-18-2984CFJ Qn5.290 uU/mLHigh0.270-4.200[facility] Reference LabComment on above:Performed By: #### FT4, TSH #### [facility] Routine Lab [address] [place], [place] [address] Vital Signs Date TimeVital SignValuePerforming YeaghwaxzNrtaykry51-95-2490 14:43-0400Body qykpdb019.9 Nelson Vail MD Work Phone: [facility] HospitalOardmnclfn30-67-7782 14:43-0400Diastolic blood mm[Hg]Bee Vail MD Work Phone: [phone] [place], [place] [address]Zreuebphfk67-67-5816 14:43-0400Heart rate81 /min Bee Vail MD Work Phone: [phone]-[address] [place], [place] [address]Mtweizavhz97-45-4738 14:43-4316WaS7% (BldA) [Mass fraction]95 %Bee Vail MD Work Phone: [facility] HospitalFgiipcjcvq03-66-3935 14:43-0400Systolic blood sitvhxiz75 mm[Hg]Bee Vail MD Work Phone: [facility] HospitalKcvddkrqdh15-08-9489 10:58-0400Body sewgvn898.9 Nelson Vail MD Work Phone: [facility] HospitalVedgziyddk85-07-9121 10:58-0400Diastolic blood uceghuks46 mm[Hg]Bee Vail MD Work Phone: [facility] HospitalNpcfzjqtlm39-62-6238 10:58-0400Heart rate75 /min Bee Vail MD Work Phone: [facility] HospitalNnjhxdguiv61-43-9982 10:58-2674TqU7% (BldA) [Mass fraction]96 %Bee Vail MD Work Phone: [facility] HospitalKhghnatoce25-58-5934 10:58-0400Systolic blood ctqzgeph18 mm[Hg]Bee Vail MD Work Phone: [facility] HospitalXjmnoklogv54-81-2679 09:50-0400Body temperature 97.7 [degF]Ruperto Ledezma MD Work Phone: [facility]06-16-2025 09:50-0400Diastolic blood vdstomqh53 mm[Hg]Ruperto Ledezma MD Work Phone: [facility]06-16-2025 09:50-0400Heart rate89 /min Ruperto Ledezma MD Work Phone: [address] [address]-16-2025 09:50-0400Respiratory rate 16 /minRuperto Ledezma MD Work Phone: [facility]06-16-2025 09:50-6070OfR2% (BldA) [Mass fraction]95 %Ruperto Ledezma MD Work Phone: [facility]06-16-2025 09:50-0400Systolic blood krqugtxp415 mm[Hg]Ruperto Ledezma MD Work Phone: [facility]06-12-2025 09:55-0400Body temperature 97.2 [degF]Irene Han APRN.TRAINING AND DEVELOPMENT DIRECTOR Work Phone: [facility]06-12-2025 09:55-0400Diastolic blood wvjvpwot31 mm[Hg]Irene Han APRN.TRAINING AND DEVELOPMENT DIRECTOR Work Phone: [phone]06-12-2025 09:55-0400Heart rate77 /min Irene Han APRN.TRAINING AND DEVELOPMENT DIRECTOR Work Phone: [phone] [address]-12-2025 09:55-0400Respiratory rate 16 /minIrene Han APRN.TRAINING AND DEVELOPMENT DIRECTOR Work Phone: [phone]06-12-2025 09:55-7582WoO7% (BldA) [Mass fraction]96 %Irene Han APRN.TRAINING AND DEVELOPMENT DIRECTOR Work Phone: [phone]06-12-2025 09:55-0400Systolic blood szfhrtoj557 mm[Hg]Irene Han APRN.TRAINING AND DEVELOPMENT DIRECTOR Work Phone: [facility]06-03-2025 13:42-0400Body ttglru243.9 cmRjagdish Vail MD Work Phone: [facility] HospitalEfpqfqnosb87-66-5326 13:42-0400Body mass index (BMI) [Ratio]30.79 kg/n0TgukshfBee Vail MD Work Phone: [facility] HospitalKqolzzwyww15-00-9878 13:42-0400Body otxumc656.97 kgBee Vail MD Work Phone: [facility] HospitalCyjmcfyipi15-31-5147 13:42-0400Diastolic blood gcxafszd37 mm[Hg]Bee Vail MD Work Phone: [facility] HospitalMlxgtszotn28-65-8575 13:42-0400Heart rate98 /min Bee Vail MD Work Phone: [facility] HospitalYjkauqosub45-80-7861 13:42-1220BaF2% (BldA) [Mass fraction]97 %Bee Vail MD Work Phone: [facility] HospitalTrmdqgvfnw39-33-7753 13:42-0400Systolic blood oncnszoj66 mm[Hg]Bee Vail MD Work Phone: [facility] HospitalKxjiuipixz41-09-3344 08:06-0400Body eekzee101.9 cmSheila Lin NUCLEAR POWERPLANT MECHANIC Work Phone: [facility] HospitalSjnmidzupo11-17-5832 08:06-0400Diastolic blood ghputizl52 mm[Hg]Sheila Lin NUCLEAR POWERPLANT MECHANIC Work Phone: [facility] HospitalCblxvqcxih21-72-6119 08:06-0400Heart vgtv819 /min Sheila Lin NUCLEAR POWERPLANT MECHANIC Work Phone: [facility] HospitalUmandsbmlr30-78-2148 08:06-2832CnC5% (BldA) [Mass fraction]98 %Sheila Lin NUCLEAR POWERPLANT MECHANIC Work Phone: [facility] HospitalGzjcfshhbz98-13-3770 08:06-0400Systolic blood mm[Hg]Sheila Lin NUCLEAR POWERPLANT MECHANIC Work Phone: [facility] HospitalFhzkfotpji42-38-6293 10:07-0400Body temperature 97.81 [degF]Ruperto Ledezma MD Work Phone: [facility]03-17-2025 10:07-0400Diastolic blood nacjplib57 mm[Hg]Ruperto Ledezma MD Work Phone: [facility]03-17-2025 10:07-0400Heart rate97 /min Ruperto Ledezma MD Work Phone: [address] [address]-17-2025 10:07-0400Respiratory rate 18 /minRuperto Ledezma MD Work Phone: [facility]03-17-2025 10:07-0074KlF5% (BldA) [Mass fraction]92 %Ruperto Ledezma MD Work Phone: [facility]03-17-2025 10:07-0400Systolic blood jibnakgk584 mm[Hg]Ruperto Ledezma MD Work Phone: [facility]03-06-2025 14:00-0500Body temperature 97.59 [degF]Irene Han APRN.TRAINING AND DEVELOPMENT DIRECTOR Work Phone: [facility]03-06-2025 14:00-0500Diastolic blood bkgzsuup90 mm[Hg]Irene Han APRN.TRAINING AND DEVELOPMENT DIRECTOR Work Phone: [phone]03-06-2025 14:00-0500Heart ivhb541 /Irma Han APRN.TRAINING AND DEVELOPMENT DIRECTOR Work Phone: [phone]03-06-2025 14:00-0500Respiratory rate 16 /minIrene Han APRN.TRAINING AND DEVELOPMENT DIRECTOR Work Phone: [phone]03-06-2025 14:00-9547IrR0% (BldA) [Mass fraction]93 %Irene Han APRN.TRAINING AND DEVELOPMENT DIRECTOR Work Phone: [phone]03-06-2025 14:00-0500Systolic blood ofsyyvfz381 mm[Hg]Irene Emely ACCOUNT SERVICES ASSOCIATE.TRAINING AND DEVELOPMENT DIRECTOR Work Phone: [facility]01-22-2025 08:05-0500Body hqesyu214.9 cmDimahomero Lin NUCLEAR POWERPLANT MECHANIC Work Phone: [facility] HospitalHriatmpilr48-21-0999 08:05-0500Diastolic blood qbgpihwr91 mm[Hg]Sheila Millercésar NUCLEAR POWERPLANT MECHANIC Work Phone: [facility] HospitalOusclaahta29-44-0655 08:05-0500Heart rate90 /min Sheila Millercésar NUCLEAR POWERPLANT MECHANIC Work Phone: [facility] HospitalYaptnfhsji76-59-4261 08:05-0661SdS7% (BldA) [Mass fraction]95 %Sheila Millercésar NUCLEAR POWERPLANT MECHANIC Work Phone: [facility] HospitalQadznunnds30-78-6034 08:05-0500Systolic blood ihhoiknm48 mm[Hg]Sheila Millercésar NUCLEAR POWERPLANT MECHANIC Work Phone: [facility] HospitalHkxalqsomt97-41-9819 13:27-0500Diastolic blood xrzadpdu49 mm[Hg]Pradhab Kirupaharan DO Work Phone: [facility]12-03-2024 13:27-0500Heart rate99 /min Pradhab Kirupaharan DO Work Phone: [facility]12-03-2024 13:27-4400ZjR0% (BldA) [Mass fraction]96 %Pradhab Kirupaharan DO Work Phone: [facility]12-03-2024 13:27-0500Systolic blood ygvzongb708 mm[Hg]Pradhab Kirupaharan DO Work Phone: [facility]11-27-2024 10:00-0500Body nvbabp209 cm Pulm 2 Work Phone: [facility]11-27-2024 10:00-0500Body mass index (BMI) [Ratio]30.56 kg/m2Pulm 2 Work Phone: [facility]11-27-2024 10:00-0500Body pbuqjs04 kg Pulm 2 Work Phone: [facility]11-18-2024 14:18-0500Diastolic blood uhpptklz35 mm[Hg]Jani Becerril MD Work Phone: [place] [address]-18-2024 14:18-0500Systolic blood zzzdbase935 mm[Hg]Jani Becerril MD Work Phone: [facility]11-18-2024 14:15-0500Heart rate99 /min Jani Becerril MD Work Phone: [facility]11-18-2024 14:15-0542EzK0% (BldA) [Mass fraction]92 %Jani Becerril MD Work Phone: [facility] ShawComment on above:jr38-88-5558 14:03-0500Body uhnpwv882.9 cmKorina Vega MD Work Phone: [facility]11-15-2024 14:03-0500Body mass index (BMI) [Ratio]29.84 kg/m2Korina Vega MD Work Phone: [facility]11-15-2024 14:03-0500Body .79 kgKorina Vega MD Work Phone: [facility]11-15-2024 14:03-0500Diastolic blood dadcznok38 mm[Hg]Korina Vega MD Work Phone: [facility]11-15-2024 14:03-0500Heart rate94 /min Korina Vega MD Work Phone: [facility]11-15-2024 14:03-3016MmN6% (BldA) [Mass fraction]95 %Korina Vega MD Work Phone: [facility]11-15-2024 14:03-0500Systolic blood qyhjpxoj599 mm[Hg]Korina Vega MD Work Phone: [facility]11-07-2024 08:30-0500Body mass index (BMI) [Ratio]29.84 kg/o8Rvnnqlyrандрей Pantoja MD Work Phone: [facility]11-07-2024 08:30-0500Body eieicm19.79 kgKodi Pantoja MD Work Phone: [facility]11-07-2024 08:30-0500Heart rate93 /min Kodi Pantoja MD Work Phone: [facility]11-07-2024 08:30-0082RmB7% (BldA) [Mass fraction]97 %Kodi Pantoja MD Work Phone: [facility]10-29-2024 08:34-0400Diastolic blood mxacehfg82 mm[Hg]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 ACCOUNT SERVICES ASSOCIATE.TRAINING AND DEVELOPMENT DIRECTOR Work Phone: [phone]10-29-2024 08:34-0400Heart rate95 /min 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 ACCOUNT SERVICES ASSOCIATE.TRAINING AND DEVELOPMENT DIRECTOR Work Phone: [facility]10-29-2024 08:34-2939SrT9% (BldA) [Mass fraction]96 %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 ACCOUNT SERVICES ASSOCIATE.TRAINING AND DEVELOPMENT DIRECTOR Work Phone: [phone] ShawComment on above:JB01-26-2630 08:34-0400Systolic blood kcxwwcdi470 mm[Hg]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 ACCOUNT SERVICES ASSOCIATE.TRAINING AND DEVELOPMENT DIRECTOR Work Phone: [facility]10-16-2024 09:17-0400Body mass index (BMI) [Ratio]29.84 kg/m2Tojaylene Zepeda MD Work Phone: [facility] CampusLaucvyulvk15-78-0752 09:17-0400Body ufugtv11.79 kgTojaylene Zepeda MD Work Phone: [facility] CampusVhoxjunhea50-70-5085 08:34-0400Body jenwnz640.9 cmSheila Lin NUCLEAR POWERPLANT MECHANIC Work Phone: [facility] CampusPghavvehso79-80-0455 08:34-0400Diastolic blood sfcuoinc04 mm[Hg]Sheila Lin NUCLEAR POWERPLANT MECHANIC Work Phone: [facility] HospitalLrucuptnhz27-59-6131 08:34-0400Heart rate99 /min Sheila Lin NUCLEAR POWERPLANT MECHANIC Work Phone: [place] [address]Angatndgan28-98-6392 08:34-0327UrK6% (BldA) [Mass fraction]96 %Sheila Araceli NUCLEAR POWERPLANT MECHANIC Work Phone: [facility] HospitalRrbhdnxcwc39-03-3209 08:34-0400Systolic blood rqcboxlv117 mm[Hg]Sheila Araceli NUCLEAR POWERPLANT MECHANIC Work Phone: [facility] HospitalLrurxirlgp12-92-6989 08:32-0400Body mass index (BMI) [Ratio]32.06 kg/z0Kmicoltvxmalena Miller ACCOUNT SERVICES ASSOCIATE.TRAINING AND DEVELOPMENT DIRECTOR Work Phone: [facility]10-03-2024 08:32-0400Body heudor950.87 kgStmalena Miller ACCOUNT SERVICES ASSOCIATE.TRAINING AND DEVELOPMENT DIRECTOR Work Phone: [facility] ShawComment on above:udizestz40-11-2580 08:32-0400Diastolic blood feifghho43 mm[Hg]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 ACCOUNT SERVICES ASSOCIATE.TRAINING AND DEVELOPMENT DIRECTOR Work Phone: [facility]10-03-2024 08:32-0400Heart rate92 /min 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 ACCOUNT SERVICES ASSOCIATE.TRAINING AND DEVELOPMENT DIRECTOR Work Phone: [facility]10-03-2024 08:32-6063AxO4% (BldA) [Mass fraction]94 %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 APRN.TRAINING AND DEVELOPMENT DIRECTOR Work Phone: [facility] on above:[id number] 08:32-0400Systolic blood qlpzismu127 mm[Hg]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 APRN.TRAINING AND DEVELOPMENT DIRECTOR Work Phone: [facility]10-02-2024 09:06-0400Body mgjbom451.9 cmTkarla Zepeda MD Work Phone: no[facility] CampusBykouogjvk98-50-0510 09:06-0400Body mass index (BMI) [Ratio]29.84 kg/m2Gabrielle Zepeda MD Work Phone: no[facility] CampusLnxjcabhfm46-04-6747 09:06-0400Body .79 kgTojaylene Zepeda MD Work Phone: NOResearch [facility] CampusGvlzemjnds60-67-0465 10:27-0400Body tyqvnw912 cm Ellyn Lopez APRN.TRAINING AND DEVELOPMENT DIRECTOR Work Phone: [facility]09-23-2024 10:27-0400Body temperature 97.11 [degF]Ellyn Lopez ACCOUNT SERVICES ASSOCIATE.TRAINING AND DEVELOPMENT DIRECTOR Work Phone: [facility]09-23-2024 10:27-0400Diastolic blood dyzersio24 mm[Hg]Ellyn Lopez APRN.TRAINING AND DEVELOPMENT DIRECTOR Work Phone: [facility]09-23-2024 10:27-0400Heart upqn826 /minEllyn Lopez APRN.TRAINING AND DEVELOPMENT DIRECTOR Work Phone: [facility]09-23-2024 10:27-0400Respiratory rate 16 /minEllyn Lopez APRN.TRAINING AND DEVELOPMENT DIRECTOR Work Phone: [facility]09-23-2024 10:27-9853AvB1% (BldA) [Mass fraction]96 %Ellyn Lopez ACCOUNT SERVICES ASSOCIATE.TRAINING AND DEVELOPMENT DIRECTOR Work Phone: [facility]09-23-2024 10:27-0400Systolic blood mm[Hg]Ellyn Lopez ACCOUNT SERVICES ASSOCIATE.TRAINING AND DEVELOPMENT DIRECTOR Work Phone: [facility]09-18-2024 09:57-0400Diastolic blood mm[Hg]Sheila Lin NUCLEAR POWERPLANT MECHANIC Work Phone: [facility] HospitalRbmcqrzsis80-49-7030 09:57-0400Heart rate92 /min Sheila Lin NUCLEAR POWERPLANT MECHANIC Work Phone: [place] [address]Iihbkptkue36-93-5134 09:57-6314HbT1% (BldA) [Mass fraction]98 %Sheila Lin NUCLEAR POWERPLANT MECHANIC Work Phone: [place] [address]Yqhnmldfvz33-16-9761 09:57-0400Systolic blood slebbhpz816 mm[Hg]Shelia Lin NUCLEAR POWERPLANT MECHANIC Work Phone: [facility] HospitalUgtbluudgc38-14-1074 09:59-0400Body hvqadmemiko00 [degF]Irene Han ACCOUNT SERVICES ASSOCIATE.TRAINING AND DEVELOPMENT DIRECTOR Work Phone: [facility]08-29-2024 09:59-0400Diastolic blood zytbqxua33 mm[Hg]Irene Han ACCOUNT SERVICES ASSOCIATE.TRAINING AND DEVELOPMENT DIRECTOR Work Phone: [phone]08-29-2024 09:59-0400Heart rate91 /min Irene Han ACCOUNT SERVICES ASSOCIATE.TRAINING AND DEVELOPMENT DIRECTOR Work Phone: [phone]08-29-2024 09:59-0400Respiratory rate 16 /minIrene Han ACCOUNT SERVICES ASSOCIATE.TRAINING AND DEVELOPMENT DIRECTOR Work Phone: [phone]08-29-2024 09:59-8680HoN0% (BldA) [Mass fraction]96 %Irene Han ACCOUNT SERVICES ASSOCIATE.TRAINING AND DEVELOPMENT DIRECTOR Work Phone: [phone]08-29-2024 09:59-0400Systolic blood qlbadoyu936 mm[Hg]Irene Han ACCOUNT SERVICES ASSOCIATE.TRAINING AND DEVELOPMENT DIRECTOR Work Phone: [phone]08-21-2024 10:58-0400Diastolic blood xtmuvsjl31 mm[Hg]Simin Brandt MD Work Phone: [facility] HospitalOrkzcg32-61-9223 10:58-0400Heart rate74 /min Simin Brandt MD Work Phone: [phone]iff[facility] HospitalPypqcw11-67-1006 10:58-7259VkK4% (BldA) [Mass fraction]99 %Simin Brandt MD Work Phone: [phone] Tiffin HospitalCguvvq54-89-9601 10:58-0400Systolic blood aitlxhbs365 mm[Hg]Simin Brandt MD Work Phone: [phone] [facility] Tiffin HospitalAdhxlq46-34-6162 09:29-0400Body temperature 96.91 [degF]Anil Franco PA-C Work Phone: [facility]06-18-2024 06:59-0400Body vccchy880 cm Carole Ruano ACCOUNT SERVICES ASSOCIATE.TRAINING AND DEVELOPMENT DIRECTOR Work Phone: [facility]06-18-2024 06:59-0400Diastolic blood mm[Hg]Carole Ruano ACCOUNT SERVICES ASSOCIATE.TRAINING AND DEVELOPMENT DIRECTOR Work Phone: [facility]06-18-2024 06:59-0400Heart rate91 /min Carole Ruano ACCOUNT SERVICES ASSOCIATE.TRAINING AND DEVELOPMENT DIRECTOR Work Phone: [facility]06-18-2024 06:59-5267LaK0% (BldA) [Mass fraction]97 %Carole Ruano ACCOUNT SERVICES ASSOCIATE.TRAINING AND DEVELOPMENT DIRECTOR Work Phone: [facility] ShawComment on above:[id number] 06:59-0400Systolic blood eeqtxdvc850 mm[Hg]Carole Ruano ACCOUNT SERVICES ASSOCIATE.TRAINING AND DEVELOPMENT DIRECTOR Work Phone: [facility]06-17-2024 10:04-0400Body temperature 97.59 [degF]Ruperto Ledezma MD Work Phone: [facility]06-17-2024 10:04-0400Diastolic blood xkygdurt49 mm[Hg]Ruperto Ledezma MD Work Phone: [facility]06-17-2024 10:04-0400Heart rate88 /min Ruperto Ledezma MD Work Phone: [facility]06-17-2024 10:04-0400Respiratory rate 16 /minRuperto Ledezma MD Work Phone: [facility]06-17-2024 10:04-0088YmN6% (BldA) [Mass fraction]95 %Ruperto Ledezma MD Work Phone: [facility]06-17-2024 10:04-0400Systolic blood elymilff153 mm[Hg]Ruperto Ledezma MD Work Phone: [facility]05-23-2024 10:07-0400Body temperature 97.9 [degF]Irene Han ACCOUNT SERVICES ASSOCIATE.TRAINING AND DEVELOPMENT DIRECTOR Work Phone: [facility]05-23-2024 10:07-0400Diastolic blood ybrowwbi56 mm[Hg]Irene Han APRN.TRAINING AND DEVELOPMENT DIRECTOR Work Phone: [facility]05-23-2024 10:07-0400Heart rate93 /min Irene Han APRN.TRAINING AND DEVELOPMENT DIRECTOR Work Phone: [facility]05-23-2024 10:07-8958PtX2% (BldA) [Mass fraction]97 %Irene Han ACCOUNT SERVICES ASSOCIATE.TRAINING AND DEVELOPMENT DIRECTOR Work Phone: [facility]05-23-2024 10:07-0400Systolic blood cmbdkbez493 mm[Hg]Irene Han ACCOUNT SERVICES ASSOCIATE.TRAINING AND DEVELOPMENT DIRECTOR Work Phone: [facility]05-10-2024 11:07-0400Diastolic blood zxhbbrez61 mm[Hg]Jani Becerril MD Work Phone: [facility]05-10-2024 11:07-0400Heart rate93 /min Jani Becerril MD Work Phone: [facility]05-10-2024 11:07-9747VxG6% (BldA) [Mass fraction]100 %Jani Becerril MD Work Phone: [facility] ShawComment on above:[id number] 11:07-0400Systolic blood onaszlzj442 mm[Hg]Jani Becerril MD Work Phone: [facility]04-25-2024 11:03-0400Body uoanir468 cm Carole Floresgarrison ACCOUNT SERVICES ASSOCIATE.TRAINING AND DEVELOPMENT DIRECTOR Work Phone: [facility]04-25-2024 11:03-0400Body temperature 98.29 [degF]Carole Floresgarrison ACCOUNT SERVICES ASSOCIATE.TRAINING AND DEVELOPMENT DIRECTOR Work Phone: [facility]04-25-2024 11:03-0400Diastolic blood mgdxxizw73 mm[Hg]Carole Bindu ACCOUNT SERVICES ASSOCIATE.TRAINING AND DEVELOPMENT DIRECTOR Work Phone: [facility]04-25-2024 11:03-0400Heart rate99 /min Carole Floresgarrison ACCOUNT SERVICES ASSOCIATE.TRAINING AND DEVELOPMENT DIRECTOR Work Phone: [facility]04-25-2024 11:03-5282DyA6% (BldA) [Mass fraction]98 %Carole Bindu ACCOUNT SERVICES ASSOCIATE.TRAINING AND DEVELOPMENT DIRECTOR Work Phone: [facility] ShawComment on above:[id number] 11:03-0400Systolic blood ohcjpjzj480 mm[Hg]Carole Floresgarrison ACCOUNT SERVICES ASSOCIATE.TRAINING AND DEVELOPMENT DIRECTOR Work Phone: [facility]04-22-2024 10:08-0400Body temperature 97 [degF]Ruperto Ledezma MD Work Phone: [facility]04-22-2024 10:08-0400Diastolic blood edzyyagw60 mm[Hg]Ruperto Ledezma MD Work Phone: [facility]04-22-2024 10:08-0400Heart rate94 /min Ruperto Ledezma MD Work Phone: [place] [address]-22-2024 10:08-0400Respiratory rate 18 /minRuperto Ledezma MD Work Phone: [place] [address]-22-2024 10:08-7827AvD8% (BldA) [Mass fraction]98 %Ruperto Ledezma MD Work Phone: [facility]04-22-2024 10:08-0400Systolic blood rirgzsmw943 mm[Hg]Ruperto Ledezma MD Work Phone: [place] [address]-12-2024 14:38-0400Body temperature 96.91 [degF]Rosales Aguirre ACCOUNT SERVICES ASSOCIATE.TRAINING AND DEVELOPMENT DIRECTOR Work Phone: [place] [address]-12-2024 14:38-0400Diastolic blood veorhfoo73 mm[Hg]Rosales Aguirre ACCOUNT SERVICES ASSOCIATE.TRAINING AND DEVELOPMENT DIRECTOR Work Phone: [phone]04-12-2024 14:38-0400Heart mgpw365 /minChristina Aguirre ACCOUNT SERVICES ASSOCIATE.TRAINING AND DEVELOPMENT DIRECTOR Work Phone: [phone] [address]-12-2024 14:38-0400Respiratory rate 16 /minChristina Aguirre ACCOUNT SERVICES ASSOCIATE.TRAINING AND DEVELOPMENT DIRECTOR Work Phone: [phone] [address]-12-2024 14:38-3435XuO7% (BldA) [Mass fraction]97 %Rosales Aguirre ACCOUNT SERVICES ASSOCIATE.TRAINING AND DEVELOPMENT DIRECTOR Work Phone: [phone] [address]-12-2024 14:38-0400Systolic blood aulkvbkz224 mm[Hg]Rosales Aguirre ACCOUNT SERVICES ASSOCIATE.TRAINING AND DEVELOPMENT DIRECTOR Work Phone: [facility]04-03-2024 07:50-0400Body temperature 97.11 [degF]Anil Franco PA-C Work Phone: [facility]03-01-2024 08:35-0500Body .9 cmSara Irasemagarrison ACCOUNT SERVICES ASSOCIATE.TRAINING AND DEVELOPMENT DIRECTOR Work Phone: [facility]03-01-2024 08:35-0500Body .9 kgSara Irasemagarrison ACCOUNT SERVICES ASSOCIATE.TRAINING AND DEVELOPMENT DIRECTOR Work Phone: [facility]03-01-2024 08:35-0500Diastolic blood rqvnsmad24 mm[Hg]Carole Ruano ACCOUNT SERVICES ASSOCIATE.[facility] Work Phone: [facility]03-01-2024 08:35-0500Heart rate94 /min Caroleedilson Ruano ACCOUNT SERVICES ASSOCIATE.[facility] Work Phone: [facility]03-01-2024 08:35-5765EfQ0% (BldA) [Mass fraction]98 %Caorleedilson Ruano ACCOUNT SERVICES ASSOCIATE.[facility] Work Phone: [facility]03-01-2024 08:35-0500Systolic blood dhhovjnq762 mm[Hg]Carole Ruano ACCOUNT SERVICES ASSOCIATE.[facility] Work Phone: [facility]02-27-2024 10:41-0500Body vzqavo744 cm Ruperto Ledezma MD Work Phone: [facility]02-27-2024 10:41-0500Body temperature 97.39 [degF]Ruperto Ledezma MD Work Phone: [facility]02-27-2024 10:41-0500Body kg Ruperto Ledezma MD Work Phone: [facility]02-27-2024 10:41-0500Diastolic blood pkxbueaa86 mm[Hg]Ruperto Ledezma MD Work Phone: [facility]02-27-2024 10:41-0500Heart rate89 /min Ruperto Ledezma MD Work Phone: [facility]02-27-2024 10:41-0500Respiratory rate 18 /minRuperto Ledezma MD Work Phone: [facility]02-27-2024 10:41-9999BdT5% (BldA) [Mass fraction]95 %Ruperto Ledezma MD Work Phone: [facility]02-27-2024 10:41-0500Systolic blood qsyotabb210 mm[Hg]Ruperto Ledezma MD Work Phone: [facility]02-08-2024 14:19-0500Body dospld819.86 kgStephanie Miller ACCOUNT SERVICES ASSOCIATE.TRAINING AND DEVELOPMENT DIRECTOR Work Phone: [facility]02-08-2024 14:19-0500Diastolic blood hsenjfpi41 mm[Hg]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 ACCOUNT SERVICES ASSOCIATE.TRAINING AND DEVELOPMENT DIRECTOR Work Phone: [phone]02-08-2024 14:19-0500Heart rate99 /min 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 ACCOUNT SERVICES ASSOCIATE.TRAINING AND DEVELOPMENT DIRECTOR Work Phone: [phone]02-08-2024 14:19-7419VbM2% (BldA) [Mass fraction]97 %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 ACCOUNT SERVICES ASSOCIATE.TRAINING AND DEVELOPMENT DIRECTOR Work Phone: [phone]02-08-2024 14:19-0500Systolic blood wuywsjdk172 mm[Hg]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 ACCOUNT SERVICES ASSOCIATE.TRAINING AND DEVELOPMENT DIRECTOR Work Phone: [facility]12-12-2023 16:45-0500Body .88 Raamelmikayla Kaila Other [facility] Other 12-12-2023 16:45-0500Body mass index (BMI) [Ratio] 30.92 kg/e4ZndplpKeke Bright Other [employer] Other 12-12-2023 16:45-0500Body qyvwxuotimy22 [degF]Keke Kaila Other [facility] Other 12-12-2023 16:45-0500Body xkingb232.42 kgKeke Bright Other no[facility] Other 12-12-2023 16:45-0500Diastolic blood mm[Hg] Keke Bright Other [employer] Other 12-12-2023 16:45-0500Respiratory rate18 /minKeke Bright Other no[facility] Other 12-12-2023 16:45-7477QzV4% (BldA) [Mass fraction]98 % Keke Bright Other [facility] Other 12-12-2023 16:45-0500Systolic blood oueriohr459 mm[Hg] Keke Bright Other no[facility] Other 11-14-2023 10:53-0500Body cmRuperto Ledezma MD Work Phone: [facility]11-14-2023 10:53-0500Body temperature 97 [degF]Ruperto Ledezma MD Work Phone: [facility]11-14-2023 10:53-0500Body huktmi384.6 kgRuperto Ledezma MD Work Phone: [facility]11-14-2023 10:53-0500Diastolic blood oenqoysn84 mm[Hg]Ruperto Ledezma MD Work Phone: [facility]11-14-2023 10:53-0500Heart ltux975 /minRuperto Ledezma MD Work Phone: [facility]11-14-2023 10:53-0500Respiratory rate 16 /minRuperto Ledezma MD Work Phone: [facility]11-14-2023 10:53-8591VhN9% (BldA) [Mass fraction]97 %Ruperto Ledezma MD Work Phone: [facility]11-14-2023 10:53-0500Systolic blood vokdrjwv293 mm[Hg]Ruperto Ledezma MD Work Phone: [facility]08-31-2023 11:01-0400Body temperature 98.2 [degF]Irene Han ACCOUNT SERVICES ASSOCIATE.TRAINING AND DEVELOPMENT DIRECTOR Work Phone: [facility]08-31-2023 11:01-0400Body .01 kgIrene Han ACCOUNT SERVICES ASSOCIATE.TRAINING AND DEVELOPMENT DIRECTOR Work Phone: [phone]08-31-2023 11:01-0400Diastolic blood mm[Hg]Irene Han ACCOUNT SERVICES ASSOCIATE.TRAINING AND DEVELOPMENT DIRECTOR Work Phone: [phone]08-31-2023 11:01-0400Heart rate96 /min Irene Han ACCOUNT SERVICES ASSOCIATE.TRAINING AND DEVELOPMENT DIRECTOR Work Phone: [phone]08-31-2023 11:01-3000NnY4% (BldA) [Mass fraction]96 %Irene Han ACCOUNT SERVICES ASSOCIATE.TRAINING AND DEVELOPMENT DIRECTOR Work Phone: [phone]08-31-2023 11:01-0400Systolic blood vuffgbhb316 mm[Hg]Irene Han ACCOUNT SERVICES ASSOCIATE.TRAINING AND DEVELOPMENT DIRECTOR Work Phone: [phone]07-27-2023 10:06-0400Body wbvqra314.87 kgJani Becerril MD Work Phone: [facility]07-27-2023 10:06-0400Diastolic blood ykumompj09 mm[Hg]Jani Becerril MD Work Phone: [facility]07-27-2023 10:06-0400Heart rate95 /min Jani Becerril MD Work Phone: [facility]07-27-2023 10:06-0400Respiratory rate 16 /minJani Becerril MD Work Phone: [facility]07-27-2023 10:06-9059KzZ7% (BldA) [Mass fraction]96 %Jani Becerril MD Work Phone: [facility]07-27-2023 10:06-0400Systolic blood vbcceaxw595 mm[Hg]Jani Becerril MD Work Phone: [facility]07-05-2023 14:33-0400Body temperature 98.6 [degF]Cyn Hernandez MD Work Phone: [phone] hospitaland Tjrsyz21-15-8194 14:33-0400Diastolic blood wxfstbro80 mm[Hg]Cyn Hernandez MD Work Phone: YMer[facility] HospitalLnllxd43-63-2389 14:33-0400Heart xngx455 /minCyn Hernandez MD Work Phone: KMer[facility]iffin HospitalHdvgdv56-82-2860 14:33-5936SrX7% (BldA) [Mass fraction]94 %Cyn Hernandez MD Work Phone: F[facility] hospitaland Ljekqp11-32-7477 14:33-0400Systolic blood ytntnpiz048 mm[Hg]Cyn Hernandez MD Work Phone: YMer[facility] HospitalTtntca59-58-5487 09:56-0400Body .3 cmLatoya Sukhwinder ACCOUNT SERVICES ASSOCIATE.TRAINING AND DEVELOPMENT DIRECTOR Work Phone: [facility]06-14-2023 09:56-0400Body temperature 97 [degF]Don Sukhwinder ACCOUNT SERVICES ASSOCIATE.TRAINING AND DEVELOPMENT DIRECTOR Work Phone: [facility]06-14-2023 09:56-0400Diastolic blood pwxtzkoq28 mm[Hg]Don Sukhwinder ACCOUNT SERVICES ASSOCIATE.TRAINING AND DEVELOPMENT DIRECTOR Work Phone: [facility]06-14-2023 09:56-0400Heart mrtb260 /minLatoya Sukhwinder ACCOUNT SERVICES ASSOCIATE.TRAINING AND DEVELOPMENT DIRECTOR Work Phone: [facility]06-14-2023 09:56-4313EeW3% (BldA) [Mass fraction]95 %Don Chan ACCOUNT SERVICES ASSOCIATE.TRAINING AND DEVELOPMENT DIRECTOR Work Phone: [facility]06-14-2023 09:56-0400Systolic blood mm[Hg]Don Chan ACCOUNT SERVICES ASSOCIATE.TRAINING AND DEVELOPMENT DIRECTOR Work Phone: [facility]06-01-2023 10:32-0400Body pytfkj532.33 kgIrene Han ACCOUNT SERVICES ASSOCIATE.TRAINING AND DEVELOPMENT DIRECTOR Work Phone: [phone]06-01-2023 10:32-0400Diastolic blood wfejfnmf79 mm[Hg]Irene Han ACCOUNT SERVICES ASSOCIATE.TRAINING AND DEVELOPMENT DIRECTOR Work Phone: [facility]06-01-2023 10:32-0400Heart yxjn456 /minIrene Han ACCOUNT SERVICES ASSOCIATE.TRAINING AND DEVELOPMENT DIRECTOR Work Phone: [phone]06-01-2023 10:32-4402AwZ1% (BldA) [Mass fraction]94 %Irene Han ACCOUNT SERVICES ASSOCIATE.TRAINING AND DEVELOPMENT DIRECTOR Work Phone: [phone]06-01-2023 10:32-0400Systolic blood oqbfqchh276 mm[Hg]Irene Han ACCOUNT SERVICES ASSOCIATE.TRAINING AND DEVELOPMENT DIRECTOR Work Phone: [facility]05-31-2023 11:06-0400Body awsqlj065.9 Mandeep Hernandez MD Work Phone: [phone] Health Tiffin HospitalIouvet28-78-1124 11:06-0400Body temperature 98.2 [degF]Cyn Hernandez MD Work Phone: JlevelOhio Valley HospitalRyyluf93-13-3344 11:06-0400Body .41 kgCyn Hernandez MD Work Phone: [place] Qelwqx22-06-7230 11:06-0400Diastolic blood adcrxlne46 mm[Hg]Cyn Hernandez MD Work Phone: [facility] Mraoro64-63-5526 11:06-0400Heart asxv926 /minCyn Hernandez MD Work Phone: [place] Fvgtdh85-69-3245 11:06-0400Respiratory rate 18 /minCyn Hernandez MD Work Phone: [phone] Scyxhy75-60-4427 11:06-2498ElU3% (BldA) [Mass fraction]96 %Cyn Hernandez MD Work Phone: [phone] Eqccrm36-47-0585 11:06-0400Systolic blood wnkjthne807 mm[Hg]Cyn Hernandez MD Work Phone: [phone] Tfvvax29-80-3573 09:51-0400Body temperature 98.01 [degF]Treatment Rej Work Phone: [facility]03-14-2023 09:51-0400Diastolic blood aapvqyge47 mm[Hg]Treatment Rej Work Phone: [facility]03-14-2023 09:51-0400Heart qcln024 /minTreatment Rej Work Phone: [facility]03-14-2023 09:51-0400Respiratory rate 18 /minTreatment Rej Work Phone: [facility]03-14-2023 09:51-0400Systolic blood atippmrh635 mm[Hg]Treatment Rej Work Phone: [facility]03-06-2023 09:49-0500Body qovetn454.91 kgIrene Han ACCOUNT SERVICES ASSOCIATE.TRAINING AND DEVELOPMENT DIRECTOR Work Phone: [phone]03-06-2023 09:49-0500Diastolic blood jomnlwwd01 mm[Hg]Irene Han APRN.TRAINING AND DEVELOPMENT DIRECTOR Work Phone: [phone]03-06-2023 09:49-0500Heart rate99 /min Irene Han APRN.TRAINING AND DEVELOPMENT DIRECTOR Work Phone: [phone]03-06-2023 09:49-0500Systolic blood rdmbnlne626 mm[Hg]Irene Han APRN.TRAINING AND DEVELOPMENT DIRECTOR Work Phone: [phone]01-18-2023 11:37-0500Body temperature 98.4 [degF]Cyn Hernandez MD Work Phone: [phone] Htqvgu51-03-0368 11:37-0500Diastolic blood numnnqmj04 mm[Hg]Cyn Hernandez MD Work Phone: [phone] Ilbshs48-57-1584 11:37-0500Heart ipeq220 /minCyn Hernandez MD Work Phone: [phone] Kzmugk02-39-2826 11:37-4483MxN7% (BldA) [Mass fraction]98 %Cyn Hernandez MD Work Phone: [phone] Mlwgwi29-62-0695 11:37-0500Systolic blood kovlvzmw347 mm[Hg]Cyn Hernandez MD Work Phone: [phone] Kmhidp33-60-1858 12:23-0500Body temperature 96.8 [degF]Treatment Rej Work Phone: [facility]12-28-2022 12:23-0500Diastolic blood fhzatuuh88 mm[Hg]Treatment Rej Work Phone: [place] [address]-28-2022 12:23-0500Heart duht081 /minTreatment Rej Work Phone: [place] [address]-28-2022 12:23-0500Systolic blood mm[Hg]Treatment Rej Work Phone: [facility]12-08-2022 14:37-0500Body temperature 98.6 [degF]Irene Han APRN.TRAINING AND DEVELOPMENT DIRECTOR Work Phone: [phone]12-08-2022 14:37-0500Body .82 kgIrene Han APRN.TRAINING AND DEVELOPMENT DIRECTOR Work Phone: [facility]12-08-2022 14:37-0500Diastolic blood mixmlwzo01 mm[Hg]Irene Han APRN.TRAINING AND DEVELOPMENT DIRECTOR Work Phone: [facility]12-08-2022 14:37-0500Heart umlj610 /minIrene Han APRN.TRAINING AND DEVELOPMENT DIRECTOR Work Phone: [facility]12-08-2022 14:37-0704QeW2% (BldA) [Mass fraction]96 %Irene Han ACCOUNT SERVICES ASSOCIATE.TRAINING AND DEVELOPMENT DIRECTOR Work Phone: [facility]12-08-2022 14:37-0500Systolic blood hdotzfaq301 mm[Hg]Irene Han ACCOUNT SERVICES ASSOCIATE.TRAINING AND DEVELOPMENT DIRECTOR Work Phone: [facility]12-01-2022 10:30-0500Body temperature 96.91 [degF]Treatment Rej Work Phone: [facility]12-01-2022 10:30-0500Diastolic blood fdohayle80 mm[Hg]Treatment Rej Work Phone: [facility]12-01-2022 10:30-0500Heart vfod182 /minTreatment Rej Work Phone: [facility]12-01-2022 10:30-0500Systolic blood uoojvvaq405 mm[Hg]Treatment Rej Work Phone: [facility]11-09-2022 09:25-0500Body temperature 97.5 [degF]Sylvia Mancilla ACCOUNT SERVICES ASSOCIATE.TRAINING AND DEVELOPMENT DIRECTOR Work Phone: [facility]11-09-2022 09:25-0500Body iawwku098.01 kgSylvia Mancilla ACCOUNT SERVICES ASSOCIATE.TRAINING AND DEVELOPMENT DIRECTOR Work Phone: [facility]11-09-2022 09:25-0500Diastolic blood zgqwoewc83 mm[Hg]Sylvia Mancilla ACCOUNT SERVICES ASSOCIATE.TRAINING AND DEVELOPMENT DIRECTOR Work Phone: [facility]11-09-2022 09:25-0500Heart yewe650 /minErmariusz Mancilla ACCOUNT SERVICES ASSOCIATE.TRAINING AND DEVELOPMENT DIRECTOR Work Phone: [facility]11-09-2022 09:25-5096JhL4% (BldA) [Mass fraction]98 %Sylvia Mancilla ACCOUNT SERVICES ASSOCIATE.TRAINING AND DEVELOPMENT DIRECTOR Work Phone: [facility]11-09-2022 09:25-0500Systolic blood kblrmibz497 mm[Hg]Sylvia Mancilla ACCOUNT SERVICES ASSOCIATE.TRAINING AND DEVELOPMENT DIRECTOR Work Phone: [facility]10-19-2022 13:34-0400Body temperature 97.11 [degF]Treatment Rej Work Phone: [facility]10-19-2022 13:34-0400Diastolic blood bnusazyr67 mm[Hg]Treatment Rej Work Phone: [facility]10-19-2022 13:34-0400Heart rate92 /min Treatment Rej Work Phone: [facility]10-19-2022 13:34-0400Respiratory rate 18 /minTreatment Rej Work Phone: [facility]10-19-2022 13:34-0400Systolic blood cgeixmhx066 mm[Hg]Treatment Rej Work Phone: [facility]09-28-2022 13:08-0400Body fbeiky477 cm Cyn Hernandez MD Work Phone: [phone] Health Tiffin HospitalTujmci87-06-8808 13:08-0400Body temperature 98.71 [degF]Cyn Hernandez MD Work Phone: [phone] Cneetd48-07-3963 13:08-0400Body albiln766.78 kgCyn Hernandez MD Work Phone: [phone] Jpbrsq57-68-9940 13:08-0400Diastolic blood rysqxaij01 mm[Hg]Cyn Hernandez MD Work Phone: [phone] Health Tiffin HospitalOlorni04-08-4165 13:08-0400Heart pyvm412 /minCyn Hernandez MD Work Phone: [phone] hospitaland Vevgpp92-18-9829 13:08-0581DuQ1% (BldA) [Mass fraction]98 %Cyn Hernandez MD Work Phone: [facility] Nndous25-58-3637 13:08-0400Systolic blood oivywcei900 mm[Hg]Cyn Hernandez MD Work Phone: [facility] Mxtohx37-03-3512 13:20-0400Body temperature 97.7 [degF]Irene Han APRN.TRAINING AND DEVELOPMENT DIRECTOR Work Phone: [phone]09-08-2022 13:20-0400Body ozgcwf114.97 kgIrene Han APRN.TRAINING AND DEVELOPMENT DIRECTOR Work Phone: [facility]09-08-2022 13:20-0400Diastolic blood iujfblld67 mm[Hg]Irene Han APRN.TRAINING AND DEVELOPMENT DIRECTOR Work Phone: [facility]09-08-2022 13:20-0400Heart dpyp228 /minIrene Han APRN.TRAINING AND DEVELOPMENT DIRECTOR Work Phone: [facility]09-08-2022 13:20-8887EeN7% (BldA) [Mass fraction]97 %Irene Han APRN.TRAINING AND DEVELOPMENT DIRECTOR Work Phone: [facility]09-08-2022 13:20-0400Systolic blood kxbpayuq824 mm[Hg]Irene Han APRN.TRAINING AND DEVELOPMENT DIRECTOR Work Phone: [facility]09-08-2022 11:28-0400Body temperature 97.59 [degF]Treatment Rej Work Phone: [facility]09-08-2022 11:28-0400Diastolic blood srznkmib18 mm[Hg]Treatment Rej Work Phone: [facility]09-08-2022 11:28-0400Heart iyto316 /minTreatment Rej Work Phone: [facility]09-08-2022 11:28-0400Systolic blood aiqgrsgb819 mm[Hg]Treatment Rej Work Phone: [facility]09-07-2022 10:01-0400Body temperature 98.2 [degF]Sylvia Mancilla ACCOUNT SERVICES ASSOCIATE.TRAINING AND DEVELOPMENT DIRECTOR Work Phone: [facility]09-07-2022 10:01-0400Body hkyrua740.78 kgSylvia Mancilla APRN.TRAINING AND DEVELOPMENT DIRECTOR Work Phone: [facility]09-07-2022 10:01-0400Diastolic blood hulysfwu47 mm[Hg]Sylvia Mancilla ACCOUNT SERVICES ASSOCIATE.TRAINING AND DEVELOPMENT DIRECTOR Work Phone: [facility]09-07-2022 10:01-0400Heart xkpy189 /minErmariusz Mancilla ACCOUNT SERVICES ASSOCIATE.TRAINING AND DEVELOPMENT DIRECTOR Work Phone: [facility]09-07-2022 10:01-9108UaV7% (BldA) [Mass fraction]97 %Sylvia Mancilla APRN.TRAINING AND DEVELOPMENT DIRECTOR Work Phone: [facility]09-07-2022 10:01-0400Systolic blood jdqxytpj392 mm[Hg]Sylvia Mancilla APRN.TRAINING AND DEVELOPMENT DIRECTOR Work Phone: [facility]07-20-2022 12:40-0400Body temperature 97.7 [degF]Treatment Rej Work Phone: [facility]07-20-2022 12:40-0400Body prhexf254.88 kgTreatment Rej Work Phone: [facility]07-20-2022 12:40-0400Diastolic blood ayqfotwy75 mm[Hg]Treatment Rej Work Phone: [facility]07-20-2022 12:40-0400Heart smll204 /minTreatment Rej Work Phone: [facility]07-20-2022 12:40-0400Systolic blood govjdhbm765 mm[Hg]Treatment Rej Work Phone: [facility]06-08-2022 11:03-0400Body temperature 97.3 [degF]Treatment Rej Work Phone: [facility]06-08-2022 11:03-0400Diastolic blood kyheimhv04 mm[Hg]Treatment Rej Work Phone: [facility]06-08-2022 11:03-0400Heart rate99 /min Treatment Rej Work Phone: [facility]06-08-2022 11:03-0400Respiratory rate 18 /minTreatment Rej Work Phone: [facility]06-08-2022 11:03-0400Systolic blood mm[Hg]Treatment Rej Work Phone: [facility]05-18-2022 08:31-0400Body temperature 98.1 [degF]Treatment Rej Work Phone: [facility]05-18-2022 08:31-0400Diastolic blood pvmvwgfi48 mm[Hg]Treatment Rej Work Phone: [facility]05-18-2022 08:31-0400Heart ypuz001 /minTreatment Rej Work Phone: [facility]05-18-2022 08:31-0400Respiratory rate 18 /minTreatment Rej Work Phone: [facility]05-18-2022 08:31-0400Systolic blood iluxoybh467 mm[Hg]Treatment Rej Work Phone: [facility]04-27-2022 08:25-0400Body uovzpd178 cm Cyn Hernandez MD Work Phone: KMer[facility]iffin HospitalVoszdk29-25-9652 08:25-0400Body temperature 98.01 [degF]Cyn Hernandez MD Work Phone: [phone] Health Tiffin HospitalBreriy87-22-4936 08:25-0400Diastolic blood baeafuhd41 mm[Hg]Cyn Hernandez MD Work Phone: [phone] Health Tiffin HospitalKcmhyr88-88-9654 08:25-0400Heart rate90 /min Cyn Hernandez MD Work Phone: [phone] Health Tiffin HospitalXcdljw08-45-3901 08:25-0400Systolic blood mm[Hg]Cyn Hernandez MD Work Phone: [phone] Health Tiffin HospitalVxkpir95-86-4763 12:31-0400Body temperature 97.2 [degF]Treatment Rej Work Phone: [facility]03-30-2022 12:31-0400Diastolic blood mbedkjyr03 mm[Hg]Treatment Rej Work Phone: [facility]03-30-2022 12:31-0400Heart rate94 /min Treatment Rej Work Phone: [facility]03-30-2022 12:31-1107FsB5% (BldA) [Mass fraction]97 %Treatment Rej Work Phone: [facility]03-30-2022 12:31-0400Systolic blood xyfgnvxk653 mm[Hg]Treatment Rej Work Phone: [facility]03-30-2022 11:09-0400Body temperature 98.01 [degF]Irene Han ACCOUNT SERVICES ASSOCIATE.TRAINING AND DEVELOPMENT DIRECTOR Work Phone: [facility]03-30-2022 11:09-0400Diastolic blood mm[Hg]Irene Han ACCOUNT SERVICES ASSOCIATE.TRAINING AND DEVELOPMENT DIRECTOR Work Phone: [facility]03-30-2022 11:09-0400Heart rate88 /min Irene Han ACCOUNT SERVICES ASSOCIATE.TRAINING AND DEVELOPMENT DIRECTOR Work Phone: [facility]03-30-2022 11:09-0534EfG8% (BldA) [Mass fraction]98 %Irene Han ACCOUNT SERVICES ASSOCIATE.TRAINING AND DEVELOPMENT DIRECTOR Work Phone: [facility]03-30-2022 11:09-0400Systolic blood mm[Hg]Irene Han ACCOUNT SERVICES ASSOCIATE.TRAINING AND DEVELOPMENT DIRECTOR Work Phone: [facility]12-16-2021 10:15-0500Body .88 cmSkeyona Johnson Other [employer] Other 12-16-2021 10:15-0500Body yjaywqyfofk51.4 [degF] Kylie Johnson Other [employer] Other 12-16-2021 10:15-0500Respiratory rate18 /minSkeyona Johnson Other [employer] Other 12-16-2021 10:15-0644HeA0% (BldA) [Mass fraction]92 % Kylie Johnson Other [employer] Other Encounters Encounter DateEncounter TypeCare ProviderFacilityStart: 12-23-2024 End: 59-61-3289gmtecggzqlVUHZNTT [facility] Hospitaltart: 69-78-1066pnsgvrynqzZZL [facility]art: 12-18-2024 End: 08-99-2134Qhbuqhyea Result EncounterGeneric External Data ProviderNOMS External Department UnsolicitedStart: 12-18-2024 End: 07-78-0579Nnxaoomhd Result EncounterGeneric External Data ProviderNOMS External Department UnsolicitedStart: 12-18-2024 End: 67-80-2049dltztwleryVSRAX DIXONFacility:[facility] Hospitaltart: 12-18-2024 End: 11-94-5994yybwtuzsrnXMZHIRD A WAREFacility:[facility] Hospitaltart: 12-18-2024 End: 17-27-1943awfbgrkgbnEEQOM DIXONFacility:[facility] Hospitaltart: 12-07-2024 End: 35-61-5192gznwdzlhcjXFVITgymkkyl:[facility] Hospitaltart: 12-03-2024 End: 26-20-6314IeeojlApsjigrm L Veneman NUCLEAR POWERPLANT MECHANIC Work Phone: NOMS Depue Internal MedicineComment on above:Nerve painStart: 12-02-2024 End: 97-97-5014GvlmcrHwerqbgn L Veneman NUCLEAR POWERPLANT MECHANIC Work Phone: [facility] Internal MedicineComment on above:Nerve painStart: 12-01-2024 End: 07-21-3185kqiibfptayHPCGDBB A WARENot AvailableStart: 12-01-2024 End: 80-85-0194Zruwif outpatient visit 25 minutesRechica Vail MD Work Phone: [facility] Internal MedicineComment on above:Vision changes (Primary Dx); 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; Acute nonintractable headache, unspecified headache type; Hypotension, unspecified hypotension typeStart: 12-01-2024 End: 97-10-0763Vahnliiwr encounterFranklin Small MANOMS [facility] Comment on above:AppointmentStart: 11-30-2024 End: 71-27-5552Jfhpwpmlc Result EncounterGeneric External Data ProviderNOMS External Department UnsolicitedStart: 11-30-2024 End: 65-38-0730Bsymvvlua Result EncounterGeneric External Data ProviderNOMS External Department UnsolicitedStart: 11-30-2024 End: 55-90-1217pszmpvhdhjZZJGL MARTINEZFacility:[facility] Hospitaltart: 11-13-2024 End: 43-18-4492MeseldJciiqtml L Veneman NP Work Phone: NOIM Brittney Internal MedicineComment on above:Anxiety Start: 11-09-2024 End: 98-11-3182wwevtxdhvvQAESZV [facility] Start: 11-02-2024 End: 49-57-0944Lmwayfnuq encounterMitzi Nash RNHematology/OncologyStart: 11-02-2024 End: 67-39-0370Jbqlvifdixzk consultation with Shilo Han APRN.CNP Work Phone: Palliative MedicineStart: 11-02-2024 End: 05-61-5901auzpsmpfwtMpojleKatina Han APRN.CNP Work Phone: Palliative MedicineComment on above:Palliative care by specialist (Primary Dx); Chronic pain syndrome; Opioid use agreement exists; 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); NSTEMI (non-ST elevated myocardial infarction) (HCC); 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Start: 10-31-2024 End: 62-73-5093ZuvaaeQee Suri MD Work Phone: Pulmonary MedicineComment on above:Refill Request Start: 10-29-2024 End: 71-63-2374mgkygxllojEnarywKatina Han APRN.CNP Work Phone: Palcoriative MedicineStart: 10-29-2024 End: 26-71-9343Krzimnv encounter procedureIrene Han APRN.CNP Work Phone: Palliative MedicineComment on above:AppointmentStart: 10-27-2024 End: 31-24-7605UtgbgrEmraytjSeymour Guerrero APRN.TRAINING AND DEVELOPMENT DIRECTOR Work Phone: Palliative MedicineComment on above:Refill Request Start: 10-05-2024 End: 73-84-6342PapzjrRvnwtacu L Veneman NUCLEAR POWERPLANT MECHANIC Work Phone: noms Depue Internal MedicineComment on above: Gastroesophageal reflux disease, unspecified whether esophagitis presentStart: 09-28-2024 End: 24-53-0301SxxtwuEmkxat Uszak MANOMS Depue Internal MedicineComment on above:Hx of pulmonary embolus (Primary Dx)Refill RequestStart: 09-14-2024 End: 23-53-9634Btoxvv outpatient visit 15 minutesBee Vail MD Work Phone: noms Depue Internal MedicineComment on above:Herpes zoster without complication (Primary Dx)Start: 09-14-2024 End: 25-55-9719bilwquldsrWIHOGHE A WARENot AvailableStart: 09-09-2024 End: 46-27-4617Lmltsz flowsPastora Sharma NUCLEAR POWERPLANT MECHANIC Work Phone: noms BCP OBStart: 09-09-2024 End: 55-30-7012Nanqwb flowsPastora Sharma NUCLEAR POWERPLANT MECHANIC Work Phone: noms BCP OBStart: 09-09-2024 End: 88-54-8582orznlsnyhrZFTYKDQV EBERLYNot AvailableStart: 09-09-2024 End: 81-08-3244Txylavc encounter procedureCristine Sharma NUCLEAR POWERPLANT MECHANIC Work Phone: noms BCP OBComment on above:Hormone disorder (Primary Dx); Symptomatic states associated with artificial menopauseStart: 09-02-2024 End: 94-38-5537WrssizQpphmcw A Ware MD Work Phone: noms LPS IMComment on above:NauseaStart: 08-29-2024 End: 99-30-4214GrjbhcLea Suri MD Work Phone: Pulmonary MedicineComment on above:Refill Request Start: 08-24-2024 End: 67-97-5205Tkmflbbhn Result EncounterJosewang Jorge Alberto NUCLEAR POWERPLANT MECHANIC Work Phone: noms External Department UnsolicitedStart: 08-24-2024 End: 27-86-6336Azxrcpnof Result EncounterCristine Roacherly NUCLEAR POWERPLANT MECHANIC Work Phone: noms External Department UnsolicitedStart: 08-20-2024 ambulatoryFacility:[facility] BellevueStart: 08-12-2024 End: 39-95-4705Pahkha flowsheetCristine Roacherly NUCLEAR POWERPLANT MECHANIC Work Phone: noms BCP OBStart: 08-12-2024 End: 06-70-2971Eytnds flowsheetCristine Roacherly NUCLEAR POWERPLANT MECHANIC Work Phone: noms BCP OBStart: 08-12-2024 End: 64-40-5552Wrsqdczky Result EncounterJosewang Jorge Alberto NUCLEAR POWERPLANT MECHANIC Work Phone: noms External Department UnsolicitedStart: 08-12-2024 End: 40-47-1432Fdcfnyg encounter procedureCristine Jorge Alberto NUCLEAR POWERPLANT MECHANIC Work Phone: [facility] Work Phone: Start: 08-12-2024 End: 12-57-6305Ejrpjizt preventive med est patient 40-64yrsKristina Jorge Alberto NUCLEAR POWERPLANT MECHANIC Work Phone: noms BCP OBComment on above:Symptomatic states associated with artificial menopause (Primary Dx); Well woman exam with routine gynecological exam; Breast cancer screening by mammogram; Hormone disorder; Folliculitis; Dyspareunia, female; Vaginal dryness, menopausalStart: 08-12-2024 End: 40-08-0467CpybfjTxyxdun A Ware MD Work Phone: noms LPS IMComment on above:AnxietyStart: 08-10-2024 End: 91-71-3170KrdctnXzlpkig A Ware MD Work Phone: noms LPS IMComment on above:DermatitisStart: 08-03-2024 End: 66-48-6999Ciyevelvs Result EncounterGeneric External Data ProviderNOMS External Department UnsolicitedStart: 08-03-2024 End: 54-31-3896Qlikgdobx Result EncounterGeneric External Data ProviderNOMS External Department UnsolicitedStart: 08-03-2024 End: 78-93-5409Outngfc encounter Sylvester Ledezma MD Work Phone: Hematology/OncologyStart: 08-03-2024 End: 06-60-4604odfikdfehgKyqia R Murphy MD Work Phone: Hematology/OncologyComment on above: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); Autologous bone marrow transplantation status (HCC); Restrictive lung disease; Heart diseaseStart: 07-30-2024 End: 44-32-2715Whfinjrwl Result EncounterGeneric External Data ProviderNOMS External Department UnsolicitedStart: 07-30-2024 End: 59-18-9678Ifftiidap Result EncounterGeneric External Data ProviderNOMS External Department UnsolicitedStart: 07-30-2024 End: 59-68-6290Dimerzn encounter Wilda Han APRN.CNP Work Phone: Palliative MedicineComment on above:Palliative care by specialist (Primary Dx); Opioid use agreement exists; 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); Chronic pain syndrome; 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; NSTEMI (non-ST elevated myocardial infarction) (HCC)Start: 07-30-2024 End: 90-81-3767mbpnxuagaeLRCNBTD A WAREFacility:[facility] Hospitaltart: 07-28-2024 End: 37-25-7904IjylrbZzfrtj Taylor APRN.TRAINING AND DEVELOPMENT DIRECTOR Work Phone: Palliative MedicineComment on above:Refill RequestCpap Start: 07-21-2024 End: 49-64-4473Pgnqsq Gato Vail MD Work Phone: NOPQ LPS IMStart: 07-21-2024 End: 99-20-7204Jeynlf Gato [place] MD Work Phone: noms LPS IMStart: 07-21-2024 End: 25-45-8544Hrjjzz outpatient visit 25 minutesRechica Vail MD Work Phone: noms LPS IMComment on above:NSTEMI (non-ST elevated myocardial infarction) (CMS/HCC) (Primary Dx); Acute systolic heart failure (CMS/HCC); Mixed hyperlipidemia (CMS/HCC); Inappropriate sinus tachycardia (CMS/HCC); Hx of pulmonary embolusStart: 07-21-2024 End: 17-61-8662gewlpzkmtaDKCOJDI A WARENot AvailableStart: 07-20-2024 End: 04-77-2740clvjdkdggeRCGRSY [facility] Start: 14-74-2287Jvdwgmijrb and management of inpatientSMercy Health Urbana Hospitaltart: 71-91-3137Swuynxqxzk and management of inpatient MIKE [facility]tart: 86-59-8234Nuqiqooylf and management of inpatientAMNA [facility]tart: 54-87-4825Ptikacbmrr and management of inpatientSHNKettering Health Greene Memorialtart: 61-38-8452Puirwlsbuu and management of inpatientAMNA [facility]tart: 07-06-2024 End: 54-46-6302Hkhgmrania and management of inpatientDARYL T [facility] Systemtart: 07-04-2024 End: 45-94-1780QhelmpVtjouaru L Veneman NP Work Phone: noms LPS IMComment on above:Anxiety; Major depressive disorder, single episode, mild (HCC) (CMS/HCC); NeuropathyStart: 06-25-2024 End: 48-51-1921CnqepfEpemvj Taylor APRN.TRAINING AND DEVELOPMENT DIRECTOR Work Phone: Palliative MedicineComment on above:Refill Request Start: 06-24-2024 End: 57-76-1033PyyhkgOoy Suri MD Work Phone: Pulmonary MedicineComment on above:Refill Request Start: 06-18-2024 End: 32-46-5421Rmlavt Fareed Vail MD Work Phone: noms LPS IMComment on above:Primary insomniaStart: 06-08-2024 End: 69-29-6187Zrxpzl flowsheetMichelle L Veneman NUCLEAR POWERPLANT MECHANIC Work Phone: NOUY LPS IMStart: 06-08-2024 End: 32-38-6108Ftespd flowsheetMichelle L Veneman NUCLEAR POWERPLANT MECHANIC Work Phone: noms LPS IMStart: 06-08-2024 End: 59-45-5314Xaviklp encounter procedureJani Becerril MD Work Phone: Pulmonary MedicineComment on above:C-papStart: 06-08-2024 End: 30-49-4873agsnmtptfcJep Suri MD Work Phone: Pulmonary MedicineStart: 06-08-2024 End: 63-81-3779Xasuzv outpatient visit 25 minutesMichelle L Veneman NUCLEAR POWERPLANT MECHANIC Work Phone: noms LPS IMComment on above:Asthma, unspecified asthma severity, unspecified whether complicated, unspecified whether persistent (CMS/HCC) (Primary Dx); Restrictive lung disease; Anxiety; Major depressive disorder, single episode, mild (HCC) (CMS/HCC); Primary insomnia; Nodular sclerosing Hodgkin's lymphoma, unspecified body region (CMS/HCC); Screening mammogram for breast cancer; Neuropathy; Left leg painStart: 06-04-2024 End: 49-55-4743Pzntujrst encounterSkeyona Miller APRN.CNP Work Phone: Internal MedicineComment on above:OrdersStart: 05-29-2024 End: 44-64-4574Zkrmgjhgz Result EncounterGeneric External Data ProviderNOMS External Department UnsolicitedStart: 05-29-2024 End: 61-18-6906Hrfkmuvme Result EncounterGeneric External Data ProviderNOMS External Department UnsolicitedStart: 05-29-2024 End: 04-96-4359Fyqamv-up encounterSkeyona Miller APRN.CNP Work Phone: [facility] Provider AdultStart: 05-29-2024 End: 98-91-3240nhddqldazvWYXNPTH A WAREFacility:[facility] HospitalStart: 05-29-2024 End: 74-48-2623Pxpsiheiyz hospital visit by physicianSelect [facility] Olegario Artis Mc Work Phone: RadiologyComment on above:Pleural effusion [J90]Start: 05-27-2024 End: 00-55-2304FwrpjtBsgbjqx A Ware MD Work Phone: NOYW LPS IMComment on above:Asthma, unspecified asthma severity, unspecified whether complicated, unspecified whether persistent (CMS/HCC) (Primary Dx)Start: 05-23-2024 End: 79-24-7095tdapwhfcxhIeldlpKatina Han APRN.CNP Work Phone: Palliative MedicineComment on above:PainStart: 05-20-2024 End: 60-15-1678Nezdbb-up encounterSkeyona Miller APRN.CNP Work Phone: Pulmonary MedicineComment on above:Cpap OrderStart: 05-15-2024 End: 68-63-9151xxbwerxaozSQUGVTS KIRUPAHARANFacility:[facility] HospitalStart: 05-12-2024 End: 08-99-7863rcoqcilixmUYKOOLX A WAREFacility:[facility] HospitalStart: 05-12-2024 End: 50-82-4569Tluwri outpatient visit 25 minutesStepkhai Miller APRN.CNP Work Phone: Pulmonary MedicineComment on above:Pleural effusion (Primary Dx); Bronchiectasis without complication (HCC); Restrictive lung disease; Chronic respiratory failure with hypoxia (HCC); Pulmonary hypertension (HCC)Start: 05-11-2024 End: 90-29-2787PdsoxqInsouzp A Ware MD Work Phone: noms LPS IMComment on above:AnxietyStart: 05-08-2024 ambulatoryANU SURIFacility:[facility] HospitalStart: 05-08-2024 End: 82-43-8748Txxrzcghsc hospital visit by physicianUltra [facility] Work Phone: [facility] Radiology UltrasoundComment on above: Pleural effusion [J90]Start: 05-07-2024 End: 67-19-6995xtqmmyevosCaayps Taylor APRN.TRAINING AND DEVELOPMENT DIRECTOR Work Phone: Palliative MedicineComment on above:QuestionStart: 05-05-2024 End: 51-84-9135K-mail encounter from caregiverCcf ProviderHematologyStart: 05-05-2024 End: 69-54-1779Bklmojr encounter procedureCcf ProviderHematologyComment on above:Schedule Pulmonary NUCLEAR POWERPLANT MECHANIC VisitStart: 05-04-2024 End: 47-94-5818Tvsjrtzia Result EncounterGeneric External Data ProviderNOMS External Department UnsolicitedStart: 05-04-2024 End: 34-48-9011Jcpjvnpmi Result EncounterGeneric External Data ProviderNOMS External Department UnsolicitedStart: 05-04-2024 End: 28-90-4373Kiqclq-up encounterRuperto Ledezma MD Work Phone: Hematology/OncologyComment on above:CXR resultsStart: 05-04-2024 End: 04-45-3662Hbgctqxugd hospital visit by physicianGeneral Olegario Artis Mc Work Phone: RadiologyComment on above:Subacute cough [R05.2]Start: 05-04-2024 End: 73-53-2426binzgthshiMIMDHHelio LEDEZMAFacility:[facility] Start: 05-04-2024 End: 09-04-5293Qlpnbm outpatient visit 25 minutesRuperto Ledezma MD Work Phone: Hematology/OncologyComment on above: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); Autologous bone marrow transplantation status (HCC); Restrictive lung disease; Subacute coughStart: 05-03-2024 End: 75-20-1554isdsxjuifpDpv Suri MD Work Phone: Pulmonary MedicineStart: 05-03-2024 End: 86-53-2605Kcdpefg encounter Nadeen Becerril MD Work Phone: Pulmonary MedicineComment on above:QuestionsStart: 05-01-2024 End: 08-98-9785Ijfdmmxkl encounterRuperto Ledezma MD Work Phone: Hematology/OncologyComment on above:Patient Update Start: 04-23-2024 End: 58-36-0528ufmjqtecwhCTGFDW TAYLORFacility:[facility] Hospitaltart: 04-23-2024 End: 32-80-2339Zqzncnh encounter procedureIrene Han ACCOUNT SERVICES ASSOCIATE.TRAINING AND DEVELOPMENT DIRECTOR Work Phone: Palliative MedicineComment on above:Palliative care by specialist (Primary Dx); Chronic pain syndrome; 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); Opioid use agreement exists; Chemotherapy-induced neuropathy (HCC); Headaches; Adjustment disorder with anxious moodStart: 04-22-2024 End: 10-69-1623aklkitzdpcMiibj R Murphy MD Work Phone: Hematology/OncologyComment on above:PET scanStart: 04-20-2024 End: 07-98-4830Assjxolkb encounterDavid Vignesh MAPulmonary MedicineComment on above:Appointment ConfirmationStart: 04-19-2024 End: 74-37-3136EjkdhxOjs Suri MD Work Phone: Pulmonary MedicineComment on above:Refill Request Start: 04-10-2024 End: 78-72-1573jraybosdeoXvrwyacjv Santana ACCOUNT SERVICES ASSOCIATE.TRAINING AND DEVELOPMENT DIRECTOR Work Phone: Pulmonary MedicineComment on above:Handicap placard Start: 04-08-2024 End: 58-13-0508Rwitebcj Zepeda MD Work Phone: NOMS SWS ALLStart: 04-08-2024 End: 72-81-8644Nxvjyyantoni Zepeda MD Work Phone: NOMS SWS ALLStart: 04-08-2024 End: 20-32-3116Uneyia outpatient visit 15 minutesTojaylene Zepeda MD Work Phone: NONK SWS ALLComment on above:Pneumonia of right upper lobe due to Streptococcus pneumoniae (CMS/HCC) (Primary Dx); Chronic rhinitisStart: 04-08-2024 End: 36-88-9451CadtrpCxtbigq A Ware MD Work Phone: NOKI LPS IMComment on above:Dermatitis (Primary Dx) Start: 04-07-2024 End: 60-42-2337XljmaqEnqape Taylor ACCOUNT SERVICES ASSOCIATE.TRAINING AND DEVELOPMENT DIRECTOR Work Phone: Palliative MedicineComment on above:Refill Request Start: 04-06-2024 End: 74-26-7924Vaegwoaug encounterRuperto Ledezma MD Work Phone: Hematology/OncologyComment on above:OrdersStart: 04-02-2024 End: 59-59-7408JlsksnYfhjus Taylor ACCOUNT SERVICES ASSOCIATE.TRAINING AND DEVELOPMENT DIRECTOR Work Phone: Palliative MedicineComment on above:Refill Request Start: 03-25-2024 End: 17-52-7375bcgoleiozwDacjukrkg Paul ACCOUNT SERVICES ASSOCIATE.TRAINING AND DEVELOPMENT DIRECTOR Work Phone: Pulmonary MedicineComment on above:NebulizerStart: 03-16-2024 End: 59-00-4602Zzzkopurz encounterDavid Vignesh MAPulmonary MedicineComment on above:Care CoordinationStart: 03-13-2024 End: 26-32-6880Cxoraxoye Result EncounterGeneric External Data ProviderNOMS External Department UnsolicitedStart: 03-13-2024 End: 65-65-9838Ejjudlebk Result EncounterGeneric External Data ProviderNOMS External Department UnsolicitedStart: 03-13-2024 End: 19-87-0416PtvcieLgndnouu L Veneman NUCLEAR POWERPLANT MECHANIC Work Phone: NOMS LPS IMComment on above:Nerve painStart: 03-11-2024 End: 89-41-1178Fvgexc flowsheetMichelle Jorge Veneman NUCLEAR POWERPLANT MECHANIC Work Phone: [phone] LPS IMStart: 03-11-2024 End: 42-35-1891Tuvzxd flowsheetMiclamar Lin NUCLEAR POWERPLANT MECHANIC Work Phone: noms LPS IMStart: 03-11-2024 End: 51-13-9694ujropnwdmzHQLZESAI L VENEMANNot AvailableStart: 03-11-2024 End: 36-39-3637Glbgjj outpatient visit 25 minutesMichelhomero Lin NUCLEAR POWERPLANT MECHANIC Work Phone: noms [facility] IMComment on above:Asthma, unspecified asthma severity, unspecified whether complicated, unspecified whether persistent (CMS/HCC) (Primary Dx); Restrictive lung disease; Major depressive disorder, single episode, mild (HCC) (CMS/HCC); Anxiety; Primary insomnia; Neuropathy; Pulmonary hypertension (CMS/HCC); Nodular sclerosis Hodgkin lymphoma, unspecified site (CMS/HCC)Start: 03-04-2024 End: 07-43-3648tqkeepnpfhCdbhiqa Kirupaharan DO Work Phone: Pulmonology [place] FHCComment on above: QuestionRefill RequestStart: 02-27-2024 End: 05-98-6825Pbjyzocicbxb consultation with Shilo Han APRN.CNP Work Phone: Palliative MedicineStart: 02-27-2024 End: 26-23-2760ipurmsjhaiLrjnmmElliot Han APRN.CNP Work Phone: Palliative MedicineComment on above:Palliative care by specialist (Primary Dx); 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); Opioid use agreement exists; Chronic pain syndrome; Muscle cramps; Pulmonary hypertension (HCC)Start: 02-27-2024 End: 23-51-2253Ezcjhwb encounter Wilda Han APRN.CNP Work Phone: Palliative MedicineComment on above:Appointment ChangedStart: 02-22-2024 End: 89-85-4329MlwmxuTglgyylgy Santana APRN.CNP Work Phone: Pulmonary MedicineComment on above:Refill Request Start: 02-17-2024 End: 72-04-0826Ycqfardzc encounterTojaylene Zepeda MD Work Phone: noms SWS ALLStart: 02-11-2024 End: 11-81-8767Ahpdp [facility] Main Work Phone: NeurologyComment on above:PSG Check InStart: 02-10-2024 End: 26-74-9026WxfjjsXsgcoai A Ware MD Work Phone: NOMV LPS IMComment on above:AnxietyRefill Request Start: 01-24-2024 End: 98-57-4552Wlzuxibgo encounterPraab Atkinsthe surgical hospital at southwoodsabbey DO Work Phone: [facility] Invasive CardiologyComment on above: Procedure Scheduling (RHC)Start: 01-21-2024 End: 16-48-9170zaatutgvwsKCTOGPD BERTHAABBEYFacility:[facility] Start: 01-21-2024 End: 34-67-4634Vihfzv outpatient new 45 minutesPraab Acevedoabbey DO Work Phone: Pulmonology [place] FHCComment on above: Pulmonary hypertension (HCC) (Primary Dx); Bronchiectasis without complication (HCC); Restrictive lung disease; Autologous bone marrow transplantation status (HCC); Recurrent pulmonary embolism (HCC); Moderate mitral regurgitationStart: 01-15-2024 End: 38-54-3373Vemgkaktj Result EncounterGeneric External Data ProviderNOMS External Department UnsolicitedStart: 01-15-2024 End: 91-59-2053Tdaojdvnu Result EncounterGeneric External Data ProviderNOMS External Department UnsolicitedStart: 01-15-2024 End: 35-24-6223Mfnypwklwl hospital visit by physicianM[facility] Work Phone: [facility] Radiology MolecularComment on above: Other secondary pulmonary hypertension (HCC) [I27.29]Start: 01-15-2024 End: 55-66-0597wzqmwrnkdaGSFDM RIVERAFacility:[facility] HospitalStart: 01-15-2024 End: 08-54-6832hnmvsgezpzGBHHPVR A WAREFacility:[facility] Hospitaltart: 01-15-2024 End: 06-90-2664Xybabpb encounter procedurePulm Lab [facility]j 2 Work Phone: Pulmonary MedicineComment on above:SpirometryStart: 01-14-2024 End: 51-59-3825Xjvnpzdqn encounterRobrachele Edwards RT(R)[facility] Radiology MolecularComment on above:Radiology NM (Appointment reminder.)Start: 01-13-2024 End: 55-11-4647FpjmbfJlpieyHarjit Han APRN.TRAINING AND DEVELOPMENT DIRECTOR Work Phone: Palliative MedicineComment on above:Refill Request Start: 01-08-2024 End: 48-53-5716Boxufwr encounter Nadeen Becerril MD Work Phone: Pulmonary MedicineComment on above:Test resultsStart: 01-08-2024 End: 32-54-4675qigafgtbpvYpw Suri MD Work Phone: Pulmonary MedicineStart: 01-07-2024 End: 92-54-8971Bmzwftodt encounterJani Becerril MD Work Phone: Pulmonary MedicineComment on above:Autoclave Operator - OtherStart: 01-06-2024 End: 75-33-0917Ujmckqxzn Result EncounterGeneric External Data ProviderNOMS External Department UnsolicitedStart: 01-06-2024 End: 68-50-0556Cfluqmyly Result EncounterGeneric External Data ProviderNOMS External Department UnsolicitedStart: 01-06-2024 End: 31-27-6839Mvdcjj OnlyJani Becerril MD Work Phone: Pulmonary MedicineComment on above:Hypoxia (Primary Dx)Other secondary pulmonary hypertension (HCC) (Primary Dx)Restrictive lung disease (Primary Dx); Bronchiectasis without complication (HCC); Chronic respiratory failure with hypoxia (HCC); 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); Autologous bone marrow transplantation status (HCC); Pleural effusion; Pulmonary hypertension (HCC)Start: 01-03-2024 End: 28-73-0343Qypgeys encounter Miquel Vega MD Work Phone: CardiologyComment on above:Other acute pulmonary embolism, unspecified whether acute cor pulmonale present (HCC) (Primary Dx); Pleural effusion, left; Pulmonary hypertension (HCC)Start: 01-03-2024 End: 79-16-3530Cyqbnnwzb Result EncounterGeneric External Data ProviderNOMS External Department UnsolicitedStart: 01-03-2024 End: 74-65-6388Zbwofmtmk Result EncounterGeneric External Data ProviderNOMS External Department UnsolicitedStart: 01-03-2024 End: 30-53-0490djjvbzaokkKjbwsqnxk Paul VALENTE Work Phone: Pulmonary MedicineComment on above:02Start: 01-03-2024 End: 15-36-1411Tyxgutthnc hospital visit by physicianJefferson [facility] Work Phone: [facility] Radiology UltrasoundComment on above: Pleural effusion, left [J90]Start: 01-01-2024 End: 85-14-1640mklbrdrjqrRxyvejKatina Han APRN.CNP Work Phone: Palliative MedicineComment on above:PainStart: 12-26-2023 End: 67-02-9839ilgwbnzlzdAakoysKatina Han APRN.CNP Work Phone: Palliative MedicineComment on above:Palliative care by specialist (Primary Dx); Chronic pain syndrome; Opioid use agreement exists; 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); Chemotherapy-induced neuropathy (HCC)Start: 12-26-2023 End: 10-48-7964Gxzmrmjufwfg consultation with Shilo Han APRN.CNP Work Phone: Palliative MedicineStart: 12-26-2023 End: 01-20-4120Xagfdj outpatient visit 15 minutesPhiандрей Pantoja MD Work Phone: Pain ManagementComment on above:Chemotherapy-induced neuropathy (HCC) (Primary Dx); 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); Anxiety and depressionStart: 12-25-2023 End: 44-15-5809PjumxxLnrfddze L Veneman NP Work Phone: NOMS LPS IMComment on above:Primary insomniaStart: 12-25-2023 End: 62-86-5497Haevkimkj encounterStepkhai Miller APRN.CNP Work Phone: Pulmonary MedicineStart: 12-23-2023 End: 35-57-3125wboyzhtgibJqxzeo Taylor APRN.TRAINING AND DEVELOPMENT DIRECTOR Work Phone: Palliative MedicineStart: 12-23-2023 End: 58-47-6136Kamiqza encounter procedureIrene Han APRN.CNP Work Phone: Palliative MedicineComment on above:Appointment.Start: 12-22-2023 End: 31-86-0852twudefwxwxPnpttezwd Santana APRN.CNP Work Phone: Pulmonary MedicineComment on above:CT scanStart: 12-20-2023 End: 01-54-3124Gphfbssng Result EncounterGeneric External Data ProviderNOMS External Department UnsolicitedStart: 12-20-2023 End: 11-45-5692Ixsfbvzth Result EncounterGeneric External Data ProviderNOMS External Department UnsolicitedStart: 12-18-2023 End: 85-34-7622Hykbikrbxt and management of inpatientREBECCA A WAREFacility:[facility] HospitalStart: 12-18-2023 End: 60-20-9511Uvvmriwfr Result EncounterGeneric External Data ProviderNOMS External Department UnsolicitedStart: 12-18-2023 End: 81-57-3272Ckfepfzor Result EncounterGeneric External Data ProviderNOMS External Department UnsolicitedStart: 12-17-2023 End: 99-66-3318naehprqemtUepdrvelj Santana APRN.CNP Work Phone: Pulmonary MedicineComment on above:QuestionStart: 12-17-2023 End: 88-11-0450Akdplxjmz encounterStepkhai Miller APRN.CNP Work Phone: Pulmonary MedicineComment on above:oxygen ordersStart: 12-17-2023 End: 97-19-5665Mvmwyp outpatient visit 40 minutesStephanie Miller ACCOUNT SERVICES ASSOCIATE.TRAINING AND DEVELOPMENT DIRECTOR Work Phone: Pulmonary MedicineComment on above:Acute hypoxic respiratory failure (HCC) (Primary Dx); Pneumonia due to infectious organism, unspecified laterality, unspecified part of lung; Restrictive lung disease; Bronchiectasis without complication (HCC)Start: 12-15-2023 End: 61-13-9565VhohijTjpvuaHarjit Han APRN.TRAINING AND DEVELOPMENT DIRECTOR Work Phone: Palliative MedicineComment on above:Refill Request Start: 12-13-2023 End: 02-74-0579oaaqremyflNwdgkqzkj Santana APRN.TRAINING AND DEVELOPMENT DIRECTOR Work Phone: Pulmonary MedicineComment on above:QuestionStart: 12-12-2023 End: 05-73-3281scoepocwdfGqvxv R Murphy MD Work Phone: Hematology/OncologyComment on above:Pet resultsStart: 12-11-2023 End: 98-37-0906ngprjfhvutJfseintwJuan Pantoja MD Work Phone: Pain ManagementComment on above:PAIN QUESTIONNAIRE Start: 12-11-2023 End: 60-22-6571Lnyuplufj Result EncounterGeneric External Data ProviderNOMS External Department UnsolicitedStart: 12-11-2023 End: 43-97-0416Orvzgsydr Result EncounterGeneric External Data ProviderNOMS External Department UnsolicitedStart: 12-11-2023 End: 06-74-5803G-mail encounter from caregiverKodi Pantoja MD Work Phone: Pain ManagementStart: 12-11-2023 End: 59-45-9322Hrbbvxoxwq hospital visit by physicianArrival Time Radiology Work Phone: Radiology Pet CTComment on above: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) [C81.12]Start: 12-09-2023 End: 80-15-4714PomnogLlwmvdzbMarianna Zhoa APRN.TRAINING AND DEVELOPMENT DIRECTOR Work Phone: palliative MedicineComment on above:Refill Request Start: 12-04-2023 End: 89-29-1407Qymtsi Alessio Zepeda MD Work Phone: NOMS SWS ALLStart: 12-04-2023 End: 81-40-5822Efleba Alessio Zepeda MD Work Phone: NOMS SWS ALLStart: 12-04-2023 End: 35-00-7778Nvbcgj outpatient visit 25 minutesTojaylene Zepeda MD Work Phone: NOMS SWS ALLComment on above:Chronic rhinitis (Primary Dx); Recurrent sinus infectionsStart: 12-01-2023 End: 18-04-5940LzhzhxQhzsnxhem Santana ACCOUNT SERVICES ASSOCIATE.TRAINING AND DEVELOPMENT DIRECTOR Work Phone: Pulmonary MedicineComment on above:Refill Request Start: 11-28-2023 End: 75-95-9086nbeipqypqvXpzhqw Taylor ACCOUNT SERVICES ASSOCIATE.TRAINING AND DEVELOPMENT DIRECTOR Work Phone: Palliative MedicineComment on above:Pain mgmt.Start: 11-28-2023 End: 54-47-4716Jhohsv flowsheetMichelle L Veneman NUCLEAR POWERPLANT MECHANIC Work Phone: NOMS LPS IMStart: 11-28-2023 End: 77-37-4815Qztrgp flowsheetMichelle L Veneman NUCLEAR POWERPLANT MECHANIC Work Phone: NOMS LPS IMStart: 11-28-2023 End: 16-74-5671Hfktki outpatient visit 25 minutesMichelle L Veneman NUCLEAR POWERPLANT MECHANIC Work Phone: NOMS LPS IMComment on above:Major depressive disorder, single episode, mild (HCC) (CMS/HCC) (Primary Dx); Anxiety; Primary insomnia; Restrictive lung disease; Mild intermittent asthma, unspecified whether complicated (CMS/HCC); Acquired hypothyroidism (CMS/HCC); Nodular sclerosing Hodgkin's lymphoma, unspecified body region (CMS/HCC); Neuropathy; Daily headacheStart: 11-25-2023 End: 90-83-4017KlgsqwJqqwncl A Ware MD Work Phone: noms LPS IMComment on above:Multiple subsegmental pulmonary emboli without acute cor pulmonale (CMS/HCC) (Primary Dx)ScansInhaler Start: 11-21-2023 End: 37-58-8402nxjfmvwbsqXuhvzd Coleman RT(R)RadiologyComment on above:Radiology XRStart: 11-21-2023 End: 24-37-9943Wvraoiblw Result EncounterGeneric External Data ProviderNOMS External Department UnsolicitedStart: 11-21-2023 End: 15-00-4623Grczhqate Result EncounterGeneric External Data ProviderNOMS External Department UnsolicitedStart: 11-21-2023 End: 90-53-6114Cxryujk encounter procedureDajoshua Ardon RT(R)RadiologyStart: 11-21-2023 End: 66-51-1875UccwyzZvuheskna Santana APRN.CNP Work Phone: Pulmonary MedicineComment on above:Med Change Request Start: 11-21-2023 End: 35-03-5444Hvspwqbye encounterSkeyona Miller APRN.TRAINING AND DEVELOPMENT DIRECTOR Work Phone: Pulmonary MedicineComment on above:Received Outside Medical Records; Request Outside Medical RecordsStart: 11-21-2023 End: 59-83-0311Iitkclbmhi hospital visit by physicianXr [facility]ainRad[facility] Comment on above:Pneumonia due to infectious organism, unspecified laterality, unspecified part of lung [J18.9]Start: 11-21-2023 End: 97-87-5865Uizhkw outpatient visit 40 minutesStmalena Miller APRN.TRAINING AND DEVELOPMENT DIRECTOR Work Phone: Pulmonary MedicineComment on above:Pneumonia due to infectious organism, unspecified laterality, unspecified part of lung (Primary Dx); Bronchiectasis without complication (HCC); Restrictive lung disease; Oropharyngeal dysphagia; Voice impairmentStart: 11-20-2023 End: 62-93-2269Jaloyk flowsNikki Zepeda MD Work Phone: noms SWS ALLStart: 11-20-2023 End: 07-53-7646Pqxcyfantoni Zepeda MD Work Phone: noms SWS ALLStart: 11-20-2023 End: 42-71-3008Epdiop OnlyTojaylene Zepeda MD Work Phone: noms External Department UnsolicitedStart: 11-20-2023 End: 12-16-0363Yyuvbu outpatient new 30 minutesGabrielle Zepeda MD Work Phone: noms SWS ALLComment on above:Pneumonia of right upper lobe due to Streptococcus pneumoniae (CMS/HCC) (Primary Dx); Recurrent sinus infectionsStart: 11-14-2023 End: 68-89-9212Jkqjqnckhycj consultation with Shilo Han APRN.CNP Work Phone: Palliative MedicineStart: 11-14-2023 End: 92-46-8372aoyiktopyxTsaixrjxDick Pantoja MD Work Phone: Pain ManagementComment on above:Pain Questionnaire Palliative care by specialist (Primary Dx); 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); Chemotherapy-induced neuropathy (HCC); Opioid use agreement exists; Chronic pain syndromeStart: 11-14-2023 End: 08-50-8183X-mail encounter from caregiverKodi Pantoja MD Work Phone: pain ManagementStart: 11-12-2023 End: 48-76-0316WvubvtJvuxtcHarjit Han APRN.CNP Work Phone: Palliative MedicineComment on above:Refill Request AnxietyStart: 11-11-2023 End: 90-53-3114Pmahndkwe Result EncounterGeneric External Data ProviderNOMS External Department UnsolicitedStart: 11-11-2023 End: 46-84-0810Vfhvarxoc Result EncounterGeneric External Data ProviderNOMS External Department UnsolicitedStart: 11-11-2023 End: 90-92-6389oyujirnmihMesskManuel Lopez APRN.CNP Work Phone: Hematology/OncologyComment on above: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); Autologous bone marrow transplantation status (HCC); Other pulmonary embolism without acute cor pulmonale, unspecified chronicity (HCC); Chemotherapy-induced neuropathy (HCC)Start: 11-11-2023 End: 21-86-6955Epswtpc encounter Jayson Lopez APRN.CNP Work Phone: Hematology/OncologyStart: 11-08-2023 End: 14-48-3303Didqcsofp encounterEllyn Lopez APRN.TRAINING AND DEVELOPMENT DIRECTOR Work Phone: Hematology/OncologyStart: 11-06-2023 End: 68-62-3186Xehbun flowsheetMiclamar Jorge Lin NUCLEAR POWERPLANT MECHANIC Work Phone: noms LPS IMStart: 11-06-2023 End: 04-94-8470Dwttnh flowsheetMichelle Jorge Millerman NUCLEAR POWERPLANT MECHANIC Work Phone: noms LPS IMStart: 11-06-2023 End: 65-51-0070Sjjqdg outpatient visit 15 minutesMichelle Jorge Lin NUCLEAR POWERPLANT MECHANIC Work Phone: noms LPS IMComment on above:Pneumonia due to infectious organism, unspecified laterality, unspecified part of lung (Primary Dx); Acute respiratory failure, unspecified whether with hypoxia or hypercapnia (CMS/HCC); Restrictive lung diseaseStart: 11-05-2023 End: 06-62-1193Xyliusayj encounterMicjyotile Jorge Lin NUCLEAR POWERPLANT MECHANIC Work Phone: noMS LPS IMComment on above:Record RequestStart: 10-29-2023 End: 82-28-1597hfhiodevexDqgro Pelfrey APRN.TRAINING AND DEVELOPMENT DIRECTOR Work Phone: Pulmonary MedicineStart: 10-29-2023 End: 38-60-9819Eojcrky encounter Latrice Ruano APRN.TRAINING AND DEVELOPMENT DIRECTOR Work Phone: Pulmonary MedicineComment on above:Schedule AppointmentStart: 10-24-2023 End: 44-17-7218prackthzqtAssgvbaHumera Orosco APRN.CNP Work Phone: Pain ManagementComment on above:Questionnaire SubmissionStart: 10-24-2023 End: 22-64-3984Y-mail encounter from Kane Orosco APRN.CNP Work Phone: Pain ManagementStart: 10-18-2023 End: 24-67-4364eggctjkijaAs Pcp APRNNaviEncompass Health Rehabilitation Hospital of York EnterpriseStart: 10-18-2023 End: 85-84-9043Stbeqje encounter procedureNo Pcp APRDepartment of [facility] [place] Start: 10-17-2023 End: 55-49-5845Ctukmju encounter Wilda Han APRN.CNP Work Phone: Palliative MedicineComment on above:Encounter for palliative care (Primary Dx); 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); Chemotherapy-induced neuropathy (HCC); Cancer related pain; Chronic pain syndromeStart: 10-15-2023 End: 08-04-0436Jkiaclp encounter procedurePulm Lab [facility] Work Phone: Pulmonary MedicineComment on above:SpirometryStart: 10-09-2023 End: 44-72-4654nreikahdvqYlvtwk A Radman RT(R)RadiologyComment on above: Radiology XRAnxietyStart: 10-09-2023 End: 57-56-3483Lliaqgpqa Result EncounterGeneric External Data ProviderNOMS External Department UnsolicitedStart: 10-09-2023 End: 92-64-2098Emwtouvvl Result EncounterGeneric External Data ProviderNOMS External Department UnsolicitedStart: 10-09-2023 End: 85-69-6993Phfexvt encounter procedureTrrenzo Fine RT(R)RadiologyStart: 10-09-2023 End: 22-36-3147Xuhqjvimzh hospital visit by physicianXr [facility] Comment on above:Polyarthralgia [M25.50]Start: 10-09-2023 End: 30-37-0164Kpjvty consultation new/estab patient 82 Epi Brandt MD Work Phone: RheumatologyComment on above:Polyarthralgia (Primary Dx); PsoriasisStart: 47-90-2907WuqiqlVgrvhhgeMarianna Zhao APRN.CNP Work Phone: palliative MedicineComment on above:Refill Request Start: 90-77-8382ClmaimYvtshgHarjit Han APRN.CNP Work Phone: Regional Palliative MedicineComment on above:Refill RequestStart: 09-19-2023 End: 59-88-9621wyryhnccagKuwogwKatina Han APRN.CNP Work Phone: Palliative MedicineComment on above:Encounter for palliative care (Primary Dx); Muscle cramps; Nodular sclerosing Hodgkin's lymphoma, unspecified body region (HCC); Opioid use agreement exists; Chronic nonmalignant pain; Chemotherapy-induced neuropathy (HCC); 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); Psoriatic arthritis (HCC)Start: 09-19-2023 End: 23-01-2270Lqyzpgydzayp consultation with Shilo Han APRN.CNP Work Phone: Palliative MedicineStart: 09-18-2023 End: 87-63-7391Heqruek encounter procedureAnil Franco PA-C Work Phone: OtolaryngologyComment on above:Dysphagia, unspecified type; Hoarseness; LPRD (laryngopharyngeal reflux disease)Start: 91-45-3308cnejrzdkwcLktvxdKatina Han APRN.CNP Work Phone: Palliative MedicineComment on above:Video visitStart: 44-12-2453Llarjieew encounterIrene Han APRN.CNP Work Phone: Palliative MedicineStart: 08-27-2023 End: 51-86-2161Bekxzqi encounter procedureSherly Hansen PA-C Work Phone: OrthopaedicsComment on above:Tendinitis, de Quervain's (Primary Dx)Start: 34-90-3484bnnkxpdnuhXihoxxKatina Han APRN.CNP Work Phone: Palliative MedicineComment on above:OxycodoneMeds Start: 06-73-7856AcnjnbCdyueShyla Ruano APRN.CNP Work Phone: Pulmonary MedicineComment on above:Refill Request Start: 07-66-7682WklrocVisbjShyla Ruano APRN.CNP Work Phone: Pulmonary MedicineComment on above:Refill Request Start: 08-12-2023 End: 18-39-7841zazudmjmjrMfmlsnKatina Han APRN.CNP Work Phone: Palliative MedicineComment on above:Muscle cramps (Primary Dx); Nodular sclerosing Hodgkin's lymphoma, unspecified body region (HCC); Chemotherapy-induced neuropathy (HCC); Encounter for palliative care; Psoriatic arthritis (HCC); Arthritis pain; Chronic nonmalignant pain; Opioid use agreement existsStart: 08-12-2023 End: 11-04-9488Esxzibephibf consultation with Shilo Han APRN.CNP Work Phone: Palliative MedicineStart: 06-75-7636W-mail encounter from caregiverCcf ProviderHematology/Medical OncologyStart: 49-86-8593Ufifda-up encounterCcf ProviderHematology/Medical OncologyComment on above:Palliative Medicine Follow UpStart: 20-47-2761ahzenrkefvQozoofKatina Han APRN.CNP Work Phone: Palliative MedicineComment on above:OxycodoneStart: 08-06-2023 End: 18-34-8590Gzihjbq encounter Latrice Ruano APRN.CNP Work Phone: Pulmonary MedicineComment on above:Pneumonia due to infectious organism, unspecified laterality, unspecified part of lung (Primary Dx); Pulmonary hypertension (HCC); Hospital discharge follow-upStart: 08-05-2023 End: 87-91-8782GdoiqhLexkweMicheline Han APRN.CNP Work Phone: Palliative MedicineComment on above:Refill Request 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) (Primary Dx); Restrictive lung disease; Anxiety and depressionStart: 05-07-7893bloywonpxyRulmzzKatina Han APRN.CNP Work Phone: Palliative MedicineStart: 96-28-3675Nvkefgb encounter Wilda Han APRN.CNP Work Phone: Palliative MedicineComment on above:AppointmentStart: 67-99-2877vmxrbfacwzLwkkg Pelfrey APRN.PEDRO Work Phone: Pulmonary MedicineStart: 32-87-2974Arstmqf encounter procedureSaraevgeny Ruano APRN.CNP Work Phone: Pulmonary MedicineComment on above:Schedule AppointmentStart: 09-77-1293Hxblbw OnlyChrisvera Hansen PA-C Work Phone: Appointment CenterComment on above:Pain (Primary Dx) Start: 07-19-2023 End: 97-68-9420Cxplkghgg Result EncounterGeneric External Data ProviderNOMS External Department UnsolicitedStart: 07-19-2023 End: 97-63-7471Mhlalkhwg Result EncounterGeneric External Data ProviderNOMS External Department UnsolicitedStart: 07-19-2023 End: 78-99-0458Ykygyhlqva hospital visit by physicianGi Radio Main Qb1 (I-Stat) RadiologyComment on above:Dysphagia, unspecified type [R13.10]Start: 2023 ambulatoryIrene Han APRN.CNP Work Phone: Palliative MedicineComment on above:MemoryStart: 2023 End: 45-51-6839Zavyyio encounter procedureIrene Han APRN.CNP Work Phone: Palliative MedicineComment on above:Encounter for palliative care (Primary Dx); Muscle cramps; Nodular sclerosing Hodgkin's lymphoma, unspecified body region (HCC); Arthritis pain; 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); Chemotherapy-induced neuropathy (HCC); Cancer related painStart: 07-10-2023 End: 54-28-0911Gvyfvxwsc Result EncounterGeneric External Data ProviderNOMS External Department UnsolicitedStart: 07-10-2023 End: 11-25-4484Pqbvjqcnl Result EncounterGeneric External Data ProviderNOMS External Department UnsolicitedStart: 07-10-2023 End: 27-97-3644Bxgowie encounter Micki Guajardo [facility] Work Phone: [facility] Speech TherapyComment on above: Dysphagia, unspecified type (Primary Dx)Start: 07-10-2023 End: 48-40-5424Fwddwkntel hospital visit by physician/[facility] Work Phone: [facility] Radiology GastrointestinalComment on above:Dysphagia, unspecified type [R13.10]Start: 07-10-2023 End: 51-77-0655vdyltfylagOmevyfh Murray [facility] Work Phone: [place] Speech TherapyStart: 06-28-2023 End: 32-40-9876Dliwjgk encounter Nadeen Becerril MD Work Phone: Pulmonary MedicineComment on above:Restrictive lung disease (Primary Dx); History of pulmonary embolism; Autologous bone marrow transplantation status (HCC); 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); Bronchiectasis without complication (HCC); Simple chronic bronchitis (HCC)Start: 57-52-1307X-mail encounter from caregiver Carole Ruano SIDRA Work Phone: Pulmonary MedicineStart: 77-03-5784Kuvdrr-up encounter Carole Bindu VALENTE Work Phone: Pulmonary MedicineComment on above:Follow UpStart: 05-64-4881Hxtwfuoir encounterSyolandaevgeny Ruano APRN.CNP Work Phone: Pulmonary MedicineComment on above:Medication AuthorizationStart: 06-13-2023 End: 61-59-2830Bdacpx outpatient visit 40 minutesSatejal Ruano APRN.TRAINING AND DEVELOPMENT DIRECTOR Work Phone: Pulmonary MedicineComment on above:Bronchitis (Primary Dx); Acute non-recurrent pansinusitis; Oral thrush; Restrictive lung disease; Pleural effusionStart: 56-31-2658Ydozefnsu encounterJeny Nava RN Hematology/OncologyComment on above:ResultsStart: 06-10-2023 End: 99-86-6937obpurryenkSfbny R Murphy MD Work Phone: Hematology/OncologyComment on above: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) (Primary Dx); Restrictive lung disease; Malaise and fatigueStart: 06-10-2023 End: 15-30-5073Pfamdzv encounter procedureRuperto Ledezma MD Work Phone: Hematology/OncologyStart: 02-73-9632JnwdibHuneps Taylor ACCOUNT SERVICES ASSOCIATE.TRAINING AND DEVELOPMENT DIRECTOR Work Phone: Palliative MedicineComment on above:Refill Request Start: 05-31-2023 End: 85-45-1805Bdnbslhouo hospital visit by physicianXr [facility] Comment on above:Wheezing [R06.2]Start: 05-31-2023 End: 19-21-7527Dlnutn outpatient visit 25 minutesChrismarcelo Aguirre ACCOUNT SERVICES ASSOCIATE.TRAINING AND DEVELOPMENT DIRECTOR Work Phone: [facility] ClinicComment on above:Restrictive lung disease (Primary Dx); WheezingStart: 80-33-2454cnwodtnpciEeqfqrp Bartlome RT(R)RadiologyComment on above:Radiology XRStart: 05-31-2023 End: 80-30-3058Midqvgxnz Result EncounterGeneric External Data ProviderNOMS External Department UnsolicitedStart: 05-31-2023 End: 41-29-5762Bgtbnnyki Result EncounterGeneric External Data ProviderNOMS External Department UnsolicitedStart: 78-33-9902Mhvbdnt encounter procedure Gunjan Hi RT(R)[facility]tart: 72-47-7232YxkynaFhsoj Pelfrey ACCOUNT SERVICES ASSOCIATE.TRAINING AND DEVELOPMENT DIRECTOR Work Phone: Pulmonary MedicineComment on above:Med Change Request Start: 05-22-2023 End: 37-25-6004Hwgbmif encounter procedureAnil Franco PA-C Work Phone: OtolaryngologyComment on above:Dysphagia, unspecified type; Hoarseness; Gastroesophageal reflux disease, unspecified whether esophagitis present; LPRD (laryngopharyngeal reflux disease)Start: 15-33-4812jdtktphkpjFkykq R Murphy MD Work Phone: Hematology/OncologyComment on above:Pet scanStart: 05-20-2023 End: 71-38-5870Aarzakvxj Result EncounterGeneric External Data ProviderNOMS External Department UnsolicitedStart: 05-20-2023 End: 10-16-6902Afaqnnonz Result EncounterGeneric External Data ProviderNOMS External Department UnsolicitedStart: 05-20-2023 End: 36-84-5115Gclidinjbx hospital visit by physicianArrival Time Radiology Work Phone: Radiology Pet CTComment on above: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) [C81.12]Start: 05-12-2023 RefillIrene Han APRN.TRAINING AND DEVELOPMENT DIRECTOR Work Phone: Palliative MedicineComment on above:Refill Request Start: 69-57-7909wqpgqxjirpQmnzoJung Ledezma MD Work Phone: Hematology/OncologyComment on above:Pet scanStart: 14-36-2426UgmhnoZouwiz Taylor ACCOUNT SERVICES ASSOCIATE.TRAINING AND DEVELOPMENT DIRECTOR Work Phone: Palliative MedicineComment on above:Refill Request Start: 04-19-2023 End: 49-64-0345Gmfqxziot Result EncounterGeneric External Data ProviderNOMS External Department UnsolicitedStart: 04-19-2023 End: 85-31-1907Filgvplfc Result EncounterGeneric External Data ProviderNOMS External Department UnsolicitedStart: 04-19-2023 End: 58-12-5891Jwunextzql hospital visit by physicianDinora [facility]anoGood [facility] Work Phone: [facility] Radiology GeneralComment on above: Influenza with pneumonia [J11.00]Start: 04-19-2023 End: 05-77-2449Qqogjg outpatient visit 40 minutesSatejal Ruano APRN.TRAINING AND DEVELOPMENT DIRECTOR Work Phone: Pulmonary MedicineComment on above:Influenza with pneumonia (Primary Dx); Restrictive lung disease; Hospital discharge follow-upStart: 04-16-2023 End: 82-66-9294xmstqhaywqWszjmJung Ledezma MD Work Phone: Hematology/OncologyComment on above: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) (Primary Dx); Restrictive lung disease; Malaise and fatigueStart: 04-16-2023 End: 09-90-5732Znzsdft encounter procedureRuperto Ledezma MD Work Phone: SANDUSKYStart: 15-96-9254DycbfcPywlhgHarjit Han APRN.CNP Work Phone: Palliative MedicineComment on above:Refill Request Start: 92-95-5083Kzhxhxskb encounterHolmagi Lopez APRN.TRAINING AND DEVELOPMENT DIRECTOR Work Phone: Hematology/OncologyComment on above:Lab OrdersStart: 72-00-2398PuhppxZfdyk M Emery NUCLEAR POWERPLANT MECHANIC Work Phone: noms LPS IMComment on above:COVID-19Start: 03-29-2023 End: 62-19-6710Qqwaqq outpatient visit 15 minutesEllyn Keller NUCLEAR POWERPLANT MECHANIC Work Phone: noms LPS IMComment on above:COVID-19 (Primary Dx) Start: 03-28-2023 End: 14-16-2250Ugeskd outpatient visit 25 minutesStmalena Miller APRN.TRAINING AND DEVELOPMENT DIRECTOR Work Phone: Pulmonary MedicineComment on above:Restrictive lung disease (Primary Dx); Chronic cough; Post-nasal drip; Hoarseness; Dysphagia, unspecified type; History of pulmonary embolismStart: 03-28-2023 End: 83-16-0259qcmntkhnjaGyip 2 Work Phone: Pulmonary MedicineComment on above:SpirometryStart: 03-28-2023 End: 72-19-0313Sdirzla encounter procedurePulm Lab [facility]j [facility] Work Phone: JANAE ORTIZ FHtart: 01-29-2023 End: 53-49-6104Oqxoiplk ReferredMD Bee Vail Work Phone: [facility] [place] Work Phone: Start: 01-29-2023 End: 81-00-3027vrlackuygcCE Bee Vail Work Phone: [place] [employer] Other Start: 10-59-9717Xybpox outpatient visit 15 minutes [facility] ClydeStart: 01-28-2023 End: 66-05-2519Bvbnrfbej Result EncounterGeneric External Data ProviderNOMS External Department UnsolicitedStart: 01-28-2023 End: 91-09-9464Rzpjxwecy Result EncounterGeneric External Data ProviderNOMS External Department UnsolicitedStart: 13-69-0356Mizzdkxkk Evans Ledezma MD Work Phone: Hematology/OncologyComment on above:OrdersStart: 01-28-2023 End: 00-74-5949Tsgyhtsvbu hospital visit by physicianArrival Time Radiology Work Phone: Radiology Pet CTComment on above: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) [C81.18]Start: 71-67-5232LrvantFwurssMicheline Han APRN.CNP Work Phone: Palliative MedicineComment on above:Refill Request Start: 83-09-3704Qigerbodw Evans Ledezma MD Work Phone: Radiation OncologyComment on above:ResultsStart: 01-01-2023 End: 22-44-0373ilfcnhpasdZqnqi R Murphy MD Work Phone: Hematology/OncologyComment on above: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) (Primary Dx); Autologous bone marrow transplantation status (HCC); Restrictive lung disease; History of DVT (deep vein thrombosis); Chemotherapy-induced neuropathy (HCC) ; Psoriasis; Cancer associated pain; Acquired hypothyroidismStart: 01-01-2023 End: 58-16-4033Gxurfvt encounter Sylvester Ledezma MD Work Phone: SANDUSKYStart: 37-73-1999Gpuet abstractingRuperto Ledezma MD Work Phone: Hematology/OncologyStart: 39-44-7383opplehimakLxk Suri MD Work Phone: JANAE ORTIZ FHCStart: 97-51-5025Yawuaxm encounter Nadeen Becerril MD Work Phone: Pulmonary MedicineComment on above:AppointmentStart: 90-96-3110MfkpmbUjvy Haddad MD Work Phone: HematologyComment on above:Refill RequestStart: 08-85-8692xxgmrfurmrZdsd Haddad MD Work Phone: ARMINDAVICKEY Lopes ANGEL FHCStart: 85-74-9401Lkcatuq encounter procedureCyn Hernandez MD Work Phone: HematologyComment on above:AppointmentStart: 49-52-9832FnuqeqWjsmt Gross ACCOUNT SERVICES ASSOCIATE.TRAINING AND DEVELOPMENT DIRECTOR Work Phone: HematologyComment on above:Refill RequestStart: 24-94-6850ZxfzsgKfbc Haddad MD Work Phone: HematologyComment on above:Refill RequestStart: 70-96-2827DiiwhoDhngpooh J Bundridge ACCOUNT SERVICES ASSOCIATE.TRAINING AND DEVELOPMENT DIRECTOR Work Phone: regional Palliative MedicineComment on above:Refill RequestStart: 57-50-1849RbsusoLjze Haddad MD Work Phone: HematologyComment on above:Refill RequestStart: 51-81-1977otxldwmorxBhmqtz Taylor ACCOUNT SERVICES ASSOCIATE.TRAINING AND DEVELOPMENT DIRECTOR Work Phone: Palliative MedicineComment on above:LyricaStart: 76-68-5703Vkooykbcd encounterSkeyona Mosher RNRegional Palliative Medicine Comment on above:Insurance AuthorizationStart: 10-18-2022 End: 07-62-3693Jsjtket encounter Wilda Han APRN.TRAINING AND DEVELOPMENT DIRECTOR Work Phone: Palliative MedicineComment on above:Palliative care by specialist (Primary Dx); Nodular sclerosing Hodgkin's lymphoma, unspecified body region (HCC); Cancer related pain; Opioid use agreement exists; Muscle crampsStart: 10-18-2022 End: 05-88-4338Hohexfa evaluation of patient and reportNurse Derm [facility] [place] Work Phone: Dermatology [place]Comment on above:Hidradenitis suppurativa (Primary Dx); Painful skin lesionStart: 42-41-5472VqveynKknscc Taylor ACCOUNT SERVICES ASSOCIATE.TRAINING AND DEVELOPMENT DIRECTOR Work Phone: Regional Palliative MedicineComment on above:Refill RequestStart: 38-31-5774HkzcymLizkcw Taylor ACCOUNT SERVICES ASSOCIATE.TRAINING AND DEVELOPMENT DIRECTOR Work Phone: [phone] Palliative MedicineComment on above:Refill RequestStart: 27-37-3162DuriiwWcxj Haddad MD Work Phone: [phone] on above:Refill RequestStart: 09-13-2022 End: 44-33-3545Ztsrknd encounter procedureJani Becerril MD Work Phone: pulmonary MedicineComment on above:Restrictive lung disease (Primary Dx); 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); Autologous bone marrow transplantation status (HCC); Chronic cough; History of pulmonary embolismStart: 54-72-2827MnawlaYwwh Haddad MD Work Phone: [phone] on above:Refill RequestStart: 52-25-0806kejeozwhovHqnn Haddad MD Work Phone: [phone] on above:AtivanStart: 08-29-2022 ambulatoryCyn Hernandez MD Work Phone: [phone] on above:AtivanStart: 08-29-2022 Gris Hernandez MD Work Phone: [phone] on above:Refill RequestStart: 13-48-0871DqqegtEafu Haddad MD Work Phone: [phone] on above:Refill RequestStart: 77-54-0215PxbplePzxy Haddad MD Work Phone: [phone] on above:Refill RequestStart: 08-22-2022 End: 39-13-4993nczdrwfixnMcfb Haddad MD Work Phone: HematologyComment on above: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)Start: 08-22-2022 End: 59-73-4604Nuzqhpy encounter procedureCyn Hernandez MD Work Phone: JANAE ORTIZ FHCStart: 08-14-2022 End: 54-96-0556Orptbltcjd hospital visit by physicianArrival Time Radiology Work Phone: Radiology Pet CTComment on above:Nodular sclerosing Hodgkin's lymphoma, unspecified body region (HCC) [C81.10]Start: 08-13-2022 RefillIrene Han APRN.TRAINING AND DEVELOPMENT DIRECTOR Work Phone: Regional Palliative MedicineComment on above:Refill RequestStart: 29-07-8222BictawXabi Haddad MD Work Phone: HematologyComment on above:Refill RequestStart: 53-53-0062IhxdioNnzz Haddad MD Work Phone: HematologyComment on above:Refill RequestStart: 16-90-8631Aqdvavhsv encounterDon Chan APRN.TRAINING AND DEVELOPMENT DIRECTOR Work Phone: Pulmonary MedicineComment on above:Patient Update Start: 08-01-2022 End: 77-79-8469Hhibvfg encounter procedureDon Chan APRN.TRAINING AND DEVELOPMENT DIRECTOR Work Phone: Pulmonary MedicineComment on above:Chronic cough (Primary Dx); Productive cough; Dyspnea on exertion; Opacity of lung on imaging studyStart: 55-30-9971jiacovevmaNxlwudu Holtz APRN.TRAINING AND DEVELOPMENT DIRECTOR Work Phone: AMHERSTStart: 33-62-0873Mybbeqn encounter procedure Nova Leija APRN.TRAINING AND DEVELOPMENT DIRECTOR Work Phone: Dermatology AmherstComment on above:AppointmentStart: 98-73-3109VdnnjxOclz Haddad MD Work Phone: HematologyComment on above:Refill RequestStart: 93-75-3859lizraybzfoKvrw Haddad MD Work Phone: HematologyComment on above:AtivanStart: 07-19-2022 End: 78-54-5111Kxlojtp encounter Wilda Han APRN.CNP Work Phone: Palliative MedicineComment on above:Palliative care by specialist (Primary Dx); Opioid use agreement exists; Cancer related pain; Chemotherapy-induced neuropathy (HCC); 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); Muscle crampsStart: 07-18-2022 End: 65-03-1592zuzeoofekwUgnvohElliot Han APRN.CNP Work Phone: AMHERSTComment on above:Nodular sclerosing Hodgkin's lymphoma, unspecified body region (HCC) (Primary Dx)Start: 07-18-2022 End: 23-51-0744Byyhncj encounter Wilda Han APRN.CNP Work Phone: Palliative MedicineComment on above:AppointmentStart: 27-76-7179mkbvlmduyzQxtls Pycraft RT(R)Radiology Ct ScanComment on above: Radiology CTStart: 69-75-2064Hlruzax encounter procedureSunni Pycraft RT(R) [facility] CENTERStart: 04-71-3212JkbhfcEmngytMicheline Han APRN.CNP Work Phone: Regional Palliative MedicineComment on above:Refill RequestStart: 06-21-2022 End: 77-65-3703ufwuongdblFU DOCTOR MISCFacility:Y1Xnuno: 84-33-1939Sqnwnnqnm encounterDon Chan APRN.CNP Work Phone: Pulmonary MedicineComment on above:New Medication Start: 06-12-2022 End: 97-96-5881hwlbqweawqLvjc Haddad MD Work Phone: HematologyComment on above: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); Uterine leiomyoma, unspecified locationStart: 06-12-2022 End: 59-30-5961Ymrzfvekfjke consultation with patientCyn Hernandez MD Work Phone: [facility]ITALtart: 63-18-1386RupjuxEctb Haddad MD Work Phone: HematologyComment on above:Refill RequestStart: 41-05-6909gcczzhnluqLfrx Haddad MD Work Phone: ARMINDAVICKEY ORTIZ [facility]PITALtart: 83-47-2960Onfwhws encounter procedureCyn Hernandez MD Work Phone: HematologyComment on above:AppointmentStart: 05-31-2022 End: 12-37-6326Fikwyrcfmq [facility]Tr[facility] Work Phone: RadiologyComment on above:Acute cough [R05.1]Start: 05-18-2022 End: 66-99-1674Fcscrydjiodz consultation with patientSrosy Del Valle MD Work Phone: [facility] MAINStart: 05-18-2022 End: 84-82-8349nenpjzlqvjHozf Haddad MD Work Phone: HematologyComment on above:LabsNO SHOW (Primary Dx) Start: 44-33-0661QqnkysOllv Haddad MD Work Phone: HematologyComment on above:Refill RequestStart: 05-01-2022 End: 48-16-6159rsqtoycndlLenpzfxhe [address] Work Phone: HematologyComment on above: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)Start: 04-25-2022 Telephone encounterChar Elder RN Work Phone: Radiation OncologyComment on above:Post Radiation Treatment Follow Up (Second attempt)Start: 04-23-2022 End: 16-83-2814Cyhyzel encounter Wilda Han APRN.CNP Work Phone: Palliative MedicineComment on above:Encounter for palliative care (Primary Dx); 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); Chemotherapy-induced neuropathy (HCC); Cancer related pain; Muscle cramps; Opioid use agreement existsStart: 69-18-7448Ljboiwhuo encounterDentrey Elder RN Work Phone: Radiation OncologyComment on above:Post Radiation Treatment Follow UpStart: 87-36-5455SxgzbaLlwimkMicheline Han APRN.CNP Work Phone: Regional Palliative MedicineComment on above:Refill RequestStart: 78-78-5010Zjiwafx encounter procedureSrosy Del Valle MD Work Phone: [facility] MAINStart: 34-62-2853Kgytrbbaz Oncology NoteSrosy Del Valle MD Work Phone: Radiation OncologyComment on above:Completion Note Start: 04-10-2022 End: 72-24-3334sfjdhjerumCbgplbnla [address] Work Phone: HematologyComment on above: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); Encounter for long-term (current) use of medications; Encounter for antineoplastic immunotherapyStart: 42-90-9350Wmpjhv Timothy Johnston MD Work Phone: HematologyComment on above: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)Start: 03-23-2022 End: 15-12-7700Hftymsi encounter procedureCcf ProviderCCF [facility] Comment on above: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)Start: 57-78-8352Houdczetc Oncology NoteCcf ProviderSelect Medical [facility] DepartmentComment on above:RTT InjectionTreatment PlanningStart: 03-23-2022 End: 63-15-7049Bjqfmof evaluation of patient and reportNurse Cathleen Main Work Phone: Radiation OncologyComment on above: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); Autologous bone marrow transplantation status (HCC)Start: 68-68-6380Futhkotif encounterDary Gonzalez RNRadiation OncologyStart: 08-88-0172TkthyrSbxaq Hutchinson ACCOUNT SERVICES ASSOCIATE.TRAINING AND DEVELOPMENT DIRECTOR Work Phone: Regional Palliative MedicineComment on above:Refill RequestStart: 03-12-2022 End: 32-54-5930crcwsvkgwfAmftl Cherian MD Work Phone: Radiation OncologyComment on above: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)Start: 03-12-2022 End: 76-63-0014Nmtpztxrznmx consultation with patientSrosy Del Valle MD Work Phone: [facility] MAINStart: 03-07-2022 End: 73-36-9924mdegdzopotIqpy Haddad MD Work Phone: HematologyComment on above:Chemotherapy-induced neuropathy (HCC) (Primary Dx)Start: 03-07-2022 End: 53-81-8207Ttpveqr encounter procedureCyn Hernandez MD Work Phone: JANAE ORTIZ FHCStart: 60-87-1137IyayevLqyog Gross ACCOUNT SERVICES ASSOCIATE.TRAINING AND DEVELOPMENT DIRECTOR Work Phone: HematologyComment on above:Refill RequestStart: 02-26-2022 End: 39-45-4379Ptjtivuxdb hospital visit by physicianArrival Time Radiology Work Phone: Radiology Pet CTComment on above:Nodular sclerosing Hodgkin's lymphoma, unspecified body region (HCC) [C81.10]Start: 02-14-2022 End: 60-11-1291ovlrlofabvJhkohogcr [address] Work Phone: HematologyComment on above: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); Encounter for antineoplastic immunotherapyStart: 62-08-7719Oflitl Sam Lisa MD Work Phone: [facility] Provider HemoncStart: 01-25-2022 End: 16-95-8194mprghpuprtTWGSAVL A WAREFacility:[facility] HospitalStart: 01-25-2022 End: 91-14-8263Kfgnxcw encounter procedureLauren Emely ACCOUNT SERVICES ASSOCIATE.TRAINING AND DEVELOPMENT DIRECTOR Work Phone: Regional Palliative MedicineComment on above:Encounter for palliative care (Primary Dx); Opioid use agreement exists; Anxiety; Cancer related pain; Chemotherapy-induced neuropathy (HCC); 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); Muscle crampsStart: 42-95-8953UrvryeRetsom Taylor ACCOUNT SERVICES ASSOCIATE.TRAINING AND DEVELOPMENT DIRECTOR Work Phone: Regional Palliative MedicineComment on above:Refill RequestStart: 75-11-7274KdueznTjtd Haddad MD Work Phone: HematologyComment on above:Refill RequestStart: 01-18-2022 End: 43-60-2642uuglwbewexCekdhcwoa [address] Work Phone: HematologyComment on above: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)Start: 01-17-2022 ambulatoryCyn Hernandez MD Work Phone: JANAE ORTIZ FHCStart: 06-50-7753Vyksfka encounter Maurice Hernandez MD Work Phone: HematologyComment on above:AppointmentStart: 33-80-7409PkrkgbLvfytiw Latsnic ACCOUNT SERVICES ASSOCIATE.TRAINING AND DEVELOPMENT DIRECTOR Work Phone: Regional Palliative MedicineComment on above:Refill RequestStart: 31-19-0694SvknouYran Haddad MD Work Phone: HematologyComment on above:Refill RequestStart: 49-95-1604Uqbixzajg encounterCaro Srinivasan RNHematologyComment on above:Care CoordinationStart: 12-27-2021 End: 62-06-6247lrrxvgucsyZtcesddke [address] Work Phone: HematologyComment on above: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); Encounter for antineoplastic immunotherapy; Encounter for long-term (current) use of medicationsNodular sclerosing Hodgkin's lymphoma, unspecified body region (HCC) (Primary Dx); BAEZ (dyspnea on exertion); Chronic cough; Chest tightnessStart: 12-27-2021 End: 73-94-5394Xsdpjpp encounter Asa Mancilla ACCOUNT SERVICES ASSOCIATE.TRAINING AND DEVELOPMENT DIRECTOR Work Phone: JANAE ORTIZ FHCStart: 69-69-7778NvolchQeqngp Taylor ACCOUNT SERVICES ASSOCIATE.TRAINING AND DEVELOPMENT DIRECTOR Work Phone: Regional Palliative MedicineComment on above:Refill RequestStart: 80-94-7550IbhzlzEiya Haddad MD Work Phone: HematologyComment on above:Refill RequestStart: 12-07-2021 End: 97-51-5631Bddcvvm encounter procedureNova Leija ACCOUNT SERVICES ASSOCIATE.TRAINING AND DEVELOPMENT DIRECTOR Work Phone: Dermatology AmherstComment on above:Acne vulgaris (Primary Dx)Start: 12-06-2021 End: 51-15-8892ulhjjiwlfgAesvwsouj [address]j Work Phone: HematologyComment on above: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)Start: 09-32-4750Huynusgino Hernandez MD Work Phone: HematologyComment on above:Refill RequestStart: 32-58-0063OlazybPofnq Gross ACCOUNT SERVICES ASSOCIATE.TRAINING AND DEVELOPMENT DIRECTOR Work Phone: HematologyComment on above:Refill RequestStart: 11-15-2021 End: 03-15-5303wianbrhfddUohe Haddad MD Work Phone: HematologyComment on above:Nodular sclerosing Hodgkin's lymphoma, unspecified body region (HCC) (Primary Dx); History of pulmonary embolism; Chemotherapy-induced neuropathy (HCC); Muscle cramps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)Start: 11-15-2021 End: 91-60-9812Mpwjopi encounter Maurice Hernandez MD Work Phone: JANAE ORTIZ FHCStart: 49-48-2545wtuoyvqakhKobl Haddad MD Work Phone: HematologyComment on above:PET scanStart: 11-13-2021 Telephone encounterNatjacqueline Nava RNHematology/OncologyComment on above:Orders Start: 11-13-2021 End: 49-38-3709Vopgxeatos hospital visit by physicianArrival Time Radiology Work Phone: Radiology Pet CTComment on above:Nodular sclerosing Hodgkin's lymphoma, unspecified body region (HCC) [C81.10]Start: 11-07-2021 Gris Hernandez MD Work Phone: HematologyComment on above:Refill RequestStart: 61-06-3322ThuyniFquoff Taylor ACCOUNT SERVICES ASSOCIATE.TRAINING AND DEVELOPMENT DIRECTOR Work Phone: Regional Palliative MedicineComment on above:Refill RequestStart: 10-26-2021 End: 47-26-3618Ciroicr encounter Wilda Han APRNNancyTRAINING AND DEVELOPMENT DIRECTOR Work Phone: Regional Palliative MedicineComment on above:Encounter for palliative care (Primary Dx); Chemotherapy-induced neuropathy (HCC); 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); Muscle crampsStart: 10-26-2021 End: 34-60-2554lrxshgyhawDrrrfwjor [address] Work Phone: HematologyComment on above: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); Encounter for antineoplastic immunotherapyStart: 10-25-2021 End: 83-57-1574qjvwdlcxmtSzmrslrqa [address] Work Phone: HematologyComment on above: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)Nodular sclerosing Hodgkin's lymphoma, unspecified body region (HCC) (Primary Dx); Encounter for antineoplastic immunotherapyStart: 10-25-2021 End: 99-24-7295Manuwgz encounter Asa Mancilla APRN.TRAINING AND DEVELOPMENT DIRECTOR Work Phone: JANAE ORTIZ FHCStart: 85-50-8336enhqlnltylGctb Haddad MD Work Phone: HematologyComment on above:InsuranceStart: 10-16-2021 RefillLoretta Cesar ACCOUNT SERVICES ASSOCIATE.TRAINING AND DEVELOPMENT DIRECTOR Work Phone: Regional Palliative MedicineComment on above:Refill RequestStart: 07-79-5544VpzxfuEhyt Haddad MD Work Phone: HematologyComment on above:Refill RequestStart: 02-89-5685Rwtqnx OnlyCyn Hernandez MD Work Phone: Hematology/OncologyComment on above:Nodular sclerosing Hodgkin's lymphoma, unspecified body region (HCC) (Primary Dx)Start: 10-02-2021 RefillSongvirginia gay hospitaltaty [place] RAISSA Work Phone: Pulmonary MedicineComment on above:Refill Request Start: 26-52-2574bzsnotavjrAeud Haddad MD Work Phone: JANAE ORTIZ FHCStart: 70-27-3440Hquqyer encounter procedureCyn Hernandez MD Work Phone: HematologyComment on above:AppointmentStart: 27-23-3666Xakbhomqj encounterCaro Srinivasan RNHematologyComment on above:Autoclave Operator - ED Follow UpStart: 88-90-1340EpjoetEjvy Haddad MD Work Phone: HematologyComment on above:Refill RequestStart: 09-06-2021 End: 72-81-3844fcbrlutolvCifhtymnb [address] Work Phone: HematologyComment on above: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)Start: 09-05-2021 End: 64-72-2353Kazobst encounter procedureNova Leija ACCOUNT SERVICES ASSOCIATE.TRAINING AND DEVELOPMENT DIRECTOR Work Phone: Dermatology AmherstComment on above:Hidradenitis suppurativa (Primary Dx); Painful skin lesion; Dermatofibroma of left kneeStart: 44-42-1684OjzalyXhbu Haddad MD Work Phone: HematologyComment on above:Refill RequestStart: 82-73-0042IhfdigWwjzwu Crook MD Work Phone: Regional Palliative MedicineComment on above:Refill RequestStart: 74-06-6671YguqmtWclb Haddad MD Work Phone: HematologyComment on above:Refill RequestStart: 08-16-2021 End: 07-19-2247vcvicboafdWpemrmuyj [address] Work Phone: HematologyComment on above: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)Start: 08-15-2021 End: 63-57-4044Sgyyqzazim hospital visit by physicianArrival Time Radiology Work Phone: Radiology Pet CTComment on above:Hodgkin lymphoma, unspecified Hodgkin lymphoma type, unspecified body region (HCC) [C81.90]Start: 95-45-0386IgeerwJvoika Taylor ACCOUNT SERVICES ASSOCIATE.TRAINING AND DEVELOPMENT DIRECTOR Work Phone: Regional Palliative MedicineComment on above:Refill RequestStart: 60-76-1787Excglyxux encounterKatshirley Pete RNMobilmarianne Services Comment on above:Care Coordination (Pall med referral)Start: 40-42-9268Xdkfxn Viki Hernandez MD Work Phone: HematologyComment on above:Muscle cramps; Nodular sclerosis classical Hodgkin lymphoma (HCC)Start: 44-83-5970zfwntetsun Irene Han APRN.TRAINING AND DEVELOPMENT DIRECTOR Work Phone: [facility] MCStart: 07-30-2021 Patient encounter Wilda Han APRN.CNP Work Phone: Regional Palliative MedicineComment on above:Saturday appointmentStart: 07-28-2021 End: 38-86-2874Txwqbwf encounter Jonel Leija APRN.TRAINING AND DEVELOPMENT DIRECTOR Work Phone: Dermatology AmherstComment on above:Hidradenitis suppurativa (Primary Dx); Painful skin lesionStart: 07-26-2021 End: 16-61-4655ggvxlxfrtzEpeuwgrnu [address] Work Phone: HematologyComment on above: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)Start: 07-24-2021 End: 69-20-8129olwdzweznnAA DOCTOR MISCFacility:U9Mreat: 24-04-9318MrahphPfbeLaith Hernandez MD Work Phone: HematologyComment on above:Refill RequestStart: 07-05-2021 End: 09-83-8733gzmwfiwjggMcgsxusbt [address] Work Phone: HematologyComment on above: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)Start: 34-19-8945Zdeciyzev Becerril MD Work Phone: Pulmonary MedicineComment on above:Refill Request Start: 48-20-4022RgitsuBojj Haddad MD Work Phone: HematologyComment on above:Refill RequestStart: 34-25-7930QgfbcpNiqcuqHarjit Han APRN.CNP Work Phone: Regional Palliative MedicineComment on above:Refill RequestStart: 06-14-2021 End: 35-11-4190hnofiwsztbWacd Haddad MD Work Phone: HematologyComment on above:Hodgkin lymphoma, unspecified Hodgkin lymphoma type, unspecified body region (HCC) (Primary Dx); 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); Encounter for antineoplastic immunotherapyStart: 06-14-2021 End: 22-73-3327Ajhksjo encounter procedureCyn Hernandez MD Work Phone: [facility]PITALtart: 06-84-8806DsycqaCduz Haddad MD Work Phone: HematologyComment on above:Refill RequestStart: 35-25-9979SgobwpMhad Haddad MD Work Phone: HematologyComment on above:Refill RequestStart: 83-94-2450Kpcerwrqh encounterCyn Hernandez MD Work Phone: HematologyComment on above:Care Coordination (sinus symptoms )Start: 05-17-2021 End: 14-13-8367biitgcutjbDkqybsmvt [address] Work Phone: HematologyComment on above: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)Start: 05-17-2021 End: 57-75-1741Senmcdq encounter Wilda Han ACCOUNT SERVICES ASSOCIATE.TRAINING AND DEVELOPMENT DIRECTOR Work Phone: Regional Palliative MedicineComment on above:Encounter for palliative care (Primary Dx); 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); Cancer related pain; Chemotherapy-induced neuropathy (HCC); Muscle cramps; AnxietyRefill RequestStart: 34-44-5130EhbcnhMjfls Gross ACCOUNT SERVICES ASSOCIATE.TRAINING AND DEVELOPMENT DIRECTOR Work Phone: HematologyComment on above:Refill RequestStart: 06-32-0206Khzptttup encounterZaira DELANEY Work Phone: HematologyComment on above:Autoclave Operator - Other Start: 18-46-9062uhltvzzbjwJwib Haddad MD Work Phone: JANAE ORTIZ FHCStart: 69-14-5578Jbawkav encounter procedureCyn Hernandez MD Work Phone: HematologyComment on above:Appointment tart: 02-14-2021 End: 94-69-2265Qjaryhxrqs hospital visit by physicianArrival Time Radiology Work Phone: Radiology Pet CTComment on above:Hodgkin lymphoma, unspecified Hodgkin lymphoma type, unspecified body region (HCC) [C81.90]Start: 02-02-2021 End: 62-06-0028xjahyqropxWpdmeqyeu Breault [facility] Other Start: 07-22-4583Mxbkkw outpatient visit 15 minutes [facility] ClydeStart: 09-07-2014 End: 35-93-9784Gfmxgqr encounter Kev Han TRAINING AND DEVELOPMENT DIRECTOR Work Phone: [facility] Procedures DateProcedureProcedure DetailPerforming ClinicianStart: 28-72-7510FS CHEST 2V FRONTAL/LATGeneric External Data ProviderStart: 16-03-4424TJK CBC W AUTO DIFF BLDGeneric External Data ProviderStart: 70-11-0251NPB T3 FREECristine Sharma NUCLEAR POWERPLANT MECHANIC Work Phone: Start: 06-39-4537SYX THYROID STIM HORMONECristine Sharma NUCLEAR POWERPLANT MECHANIC Work Phone: Start: 66-10-4236TLE THYROXINE (T4)Cristine Sharma NUCLEAR POWERPLANT MECHANIC Work Phone: Start: 29-08-0272YUL GLUCOSE BLOODCristine Sharma NUCLEAR POWERPLANT MECHANIC Work Phone: Start: 34-37-5124BOE,APTIMA HPV,AGE GDLNCristine Sharma NUCLEAR POWERPLANT MECHANIC Work Phone: Start: 53-40-3758Lskvbdewanh observation [Identifier] in Cervix by Cyto stainCristine Sharma NUCLEAR POWERPLANT MECHANIC Work Phone: Start: 88-14-1431AHY CBC W AUTO DIFF BLDGeneric External Data ProviderStart: 04-72-7950CLN SPECIMEN VALIDITY, URINEGeneric External Data ProviderStart: 85-64-2370JZAGU TOX PANELGeneric External Data ProviderStart: 47-36-8695Bcsojdovug exam chest 2 viewsStmalena Miller APRN.TRAINING AND DEVELOPMENT DIRECTOR Work Phone: Start: 24-05-3395ON CHEST 2V FRONTAL/LATGeneric External Data ProviderStart: 07-69-5711Bwnykurhlq exam chest 2 viewsRuperto Ledezma MD Work Phone: Start: 94-60-7189MY CHEST 2V FRONTAL/LATGeneric External Data ProviderStart: 12-55-9920RTT CBC W AUTO DIFF BLDGeneric External Data ProviderStart: 46-40-8522TCD CBC PNL BLD AUTOGeneric External Data Provider Start: 27-95-9476KZ LUNG VENT / PERF VQGeneric External Data ProviderStart: 68-21-6041Agufgyicg ventilation & perfusion imagingWeisbrod Memorial County Hospital ACCOUNT SERVICES ASSOCIATE.[facility] Work Phone: Start: 99-09-3961Xxlwmyfjw stress testingStfoxborough state hospital Miller ACCOUNT SERVICES ASSOCIATE.[facility] Work Phone: Start: 12-49-6970Lvreoqcbzvw ear/pulse oximetry multiple deterStBaystate Franklin Medical Centerpallavi BROWNN.[facility] Work Phone: Start: 63-43-6595AFQ ARTERIAL BLOOD GASESGeneric External Data ProviderStart: 16-25-4335Ec diffusing capacityStChelsea Memorial Hospital ACCOUNT SERVICES ASSOCIATE.[facility] Work Phone: Start: 42-18-0689PXS NT-PROBNP SERPL-MCNCGeneric External Data ProviderStart: 51-24-1768ZQ CHEST EFFUSION SURVEYGeneric External Data ProviderStart: 04-72-1095ILY BACTERIA BAL AEROBE CULTGeneric External Data ProviderStart: 47-51-9502Fvk routine ecg w/least 12 lds w/i&rGeneric External Data ProviderStart: 47-43-5071YT PET/CT SKULL-THIGH SUBQGeneric External Data ProviderStart: 90-54-3676Rjcr bld gluc mntr dev cleared fda spec home useCcf ProviderStart: 98-58-2665Utirqrtkzn exam chest 2 viewsStjohn j. pershing va medical centergilmar Miller ACCOUNT SERVICES ASSOCIATE.[facility] Work Phone: Start: 23-98-7421XS CHEST 2V FRONTAL/LATGeneric External Data ProviderStart: 73-45-9908IQS CBC W AUTO DIFF BLDGeneric External Data ProviderStart: 96-19-6787GNF COMP METAB 2000 PNL SERPLGeneric External Data ProviderStart: 68-56-5627QFMMJBFFJOQY AB (23 SEROTYPE)Gabrielle Zepeda MD Work Phone: Start: 11-20-2023T cells absolute cd4 countTojaylene Zepeda MD Work Phone: Start: 42-72-8874LNK CBC W AUTO DIFF BLDGeneric External Data ProviderStart: 30-22-1473Pqnuufovkyg ear/pulse oximetry multiple deterSarah Pelfrey ACCOUNT SERVICES ASSOCIATE.TRAINING AND DEVELOPMENT DIRECTOR Work Phone: Start: 61-59-2594Ikyoqqpirh examination sacroiliac jnts <3 Hakan Brandt MD Work Phone: Start: 92-26-8520BZ FOOT 3V AP/LAT/OBL BILGeneric External Data ProviderStart: 71-61-3032GV HAND 3V PA/LAT/OBL BILGeneric External Data ProviderStart: 71-24-7479KX KNEE 4V AP/PA/LAT/MERCH BILGeneric External Data ProviderStart: 15-27-9829RQ SI JTS 2V AP PELV/FERGUSONGeneric External Data ProviderStart: 84-08-5664Ckxjcstul 1 tendon sheath/ligament aponeurosis Sherly DICKERSON-C Work Phone: Start: 75-79-2082Tobkpfvzwt exam esophagus single contrast studyPariley DICKERSON-Rayshawn Work Phone: Start: 38-48-4637QY ESOPHAGRAMGeneric External Data ProviderStart: 06-60-8573Wppuxqzrgq exam swallow function contrast studyAnil DICKERSON-C Work Phone: Start: 26-59-5838DC MOD BARIUM SWALLOW W SPEECHGeneric External Data ProviderStart: 53-45-6248Dnpwuzihde exam chest 2 viewsRosales Aguirre ACCOUNT SERVICES ASSOCIATE.TRAINING AND DEVELOPMENT DIRECTOR Work Phone: Start: 91-35-3751MC CHEST 2V FRONTAL/LATGeneric External Data ProviderStart: 04-98-9583TXV SARS-COV-2,INFLUENZA A/B,RSV RAPID Generic External Data ProviderStart: 05-84-7175MQ PET/CT SKULL-THIGH SUBQGeneric External Data ProviderStart: 06-36-7672Zxn imaging ct attenuation skull base mid-thighCyn Hernandez MD Work Phone: Start: 33-91-5012Rtrf bld gluc mntr dev cleared fda spec home useCcf ProviderStart: 74-05-3161GL CHEST 2V FRONTAL/LATGeneric External Data ProviderStart: 59-20-4537Wgbume oxide gas determination Don Sukhwinder ACCOUNT SERVICES ASSOCIATE.TRAINING AND DEVELOPMENT DIRECTOR Work Phone: Start: 24-48-7805Zg diffusing capacityLatofelice Chan ACCOUNT SERVICES ASSOCIATE.TRAINING AND DEVELOPMENT DIRECTOR Work Phone: Start: 57-61-6132UB PET/CT SKULL-THIGH SUBQGeneric External Data ProviderStart: 93-12-7731Hpw imaging ct attenuation skull base mid-thighRuperto Ledezma MD Work Phone: Start: 01-28-2023 End: 11-96-4151Aidqp count complete auto&auto difrntl wbcCyn Hernandez MD Work Phone: Start: 94-55-5305Kbi imaging ct attenuation skull base mid-thighCyn Hernandez MD Work Phone: Start: 15-74-2104Wwhy bld gluc mntr dev cleared fda spec home useCcf ProviderStart: 43-72-9024Yn thorax w/o contrast materialCyn Hernandez MD Work Phone: Start: 38-12-8951Hqj imaging ct attenuation skull base mid-thighCyn Hernandez MD Work Phone: Start: 19-23-1086Ifja bld gluc mntr dev cleared fda spec home useCcf ProviderStart: 05-36-8551Jqn imaging ct attenuation skull base mid-thighCyn Hernandez MD Work Phone: Start: 11-13-2021 End: 88-09-8702Dbgtkppjwumom metabolic panelCyn Hernandez MD Work Phone: Start: 16-13-7129Ktjaz depression screening assessment Treatment Rej Work Phone: Start: 03-48-6967Slg imaging ct attenuation skull base mid-thighCyn Hernandez MD Work Phone: Start: 85-12-5529Cppge count complete auto&auto difrntl wbcCyn Hernandez MD Work Phone: Start: 38-13-3662Tltcr depression screening assessment Cyn Hernandez MD Work Phone: Start: 22-06-8548Ouzwy depression screening assessment Sylvia Charo ACCOUNT SERVICES ASSOCIATE.TRAINING AND DEVELOPMENT DIRECTOR Work Phone: Start: 31-24-4669Zxu imaging ct attenuation skull base mid-thighErikasandra Charo ACCOUNT SERVICES ASSOCIATE.TRAINING AND DEVELOPMENT DIRECTOR Work Phone: Start: 86-88-8770Fsdu bld gluc mntr dev cleared fda spec home useCcf ProviderStart: 54-69-7165RipcuxwaecjLxamj Krishna SINGH Work Phone: Start: 43-76-6259Dwqtqwqnuqq observation [Identifier] in Cervix by Cyto stainSheila Lin NP Work Phone: Plan of Treatment DateCare ActivityDetailAuthorStart: 66-58-1969Agbtv microalbumin profile DTaP,Tdap,Td Vaccine (6 - Td or Tdap)[facility] Centertart: 12-03-2028 Pneumococcal vaccinationCincinnati Children's Hospital Medical Centertart: 02-58-9356Slaugffox for malignant neoplasm of cervixNOMS HealthcareStart: 08-19-2025 End: 78-55-5433Cbqaofk encounter procedureNOMS BCP OBStart: 06-25-2026Medicare Annual Wellness (AWV)Medicare Annual Wellness (AWV)[facility] HealthcareStart: 66-87-5987Ysyzfedrg B surface antibody levelLDL CholesterolSelect Medical [facility] Clinic [facility] Start: 03-17-2025 End: 49-79-3321Knyosiy encounter thfyucizg55/28/2026 11:00 AM EST Office Visit [facility] [place] [facility] [address] [place] [address] Bee Vail MD [address] [place], [place] [id number] [facility] [facility] MedicineStart: 12-10-2024 End: 84-70-9585JQW W Auto Differential panel - BloodCOMPLETE BLOOD COUNT AND DIFFERENTIAL Lab Routine 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) Expected: 12/10/2024 (Approximate), Expires: 03/11/2025 [facility] ShawComment on above:Expected: 12/10/2024 (Approximate), Expires: 03/11/2025Start: 12-10-2024 End: 96-43-6883Ipnzsfehvaixx metabolic 2000 panel - Serum or PlasmaCOMPREHENSIVE METABOLIC PANEL Lab Routine 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) Expected: 12/10/2024 (Approximate), Expires: 03/11/2025 [facility] ShawComment on above:Expected: 12/10/2024 (Approximate), Expires: 03/11/2025Start: 12-10-2024 End: 30-31-7507Opkuuambfsx sedimentation rateSEDIMENTATION RATE, WESTERGREN Lab Routine 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) Expected: 12/10/2024 (Approximate), Expires: 03/11/2025[facility] HospitalComment on above:Expected: 12/10/2024 (Approximate), Expires: 03/11/2025Start: 12-10-2024 End: 09-33-7449NLO+CT Guidance for localization of tumor of Skull base to mid-thigh-- W 18F-FDG [facility] Work Phone: Comment on above:1 Occurrences starting 11/11/2023 until 12/10/2024Expected: 12/10/2024 (Approximate), Expires: 09/02/2025Start: 12-07-2024 End: 47-30-1528gkugkchwgk56/20/2025 11:00 AM EDT Visit (SP) Office Hematology/Oncology [address] [place] [address] [place] [address] Je Gongora MD [address] [place] [address] [place] [address] 3 month JENNIFER / BRMHematology/OncologyComment on above:3 month JENNIFER / BRMStart: 12-01-2024 End: 89-27-6408Dxuqthb encounter downneqhl42/14/2025 2:40 PM EDT Office Visit [facility] [address] [place] [address] Bee Vail MD [address] [place] [address] [facility] MedicineStart: 11-30-2024 End: 67-87-2059Pejoluf encounter azrsesxef55/13/2025 8:45 AM EDT Appointment Radiology Pet CT [address] [place] [address] Pet scan in 3 month with labRadiology Pet CTComment on above:Pet scan in 3 month with lab Start: 11-02-2024 End: 54-21-5817ULX W Auto Differential panel - BloodCOMPLETE BLOOD COUNT AND DIFFERENTIAL Lab Routine 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) Expected: 11/02/2024, [facility] Comment on above:Expected: 11/02/2024, Expires: 02/01/2025Start: 11-02-2024 End: 75-26-0107Kkxavbtiqkgzc metabolic 2000 panel - Serum or PlasmaCOMPREHENSIVE METABOLIC PANEL Lab Routine 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) Expected: 11/02/2024, Expires: [facility] Comment on above:Expected: 11/02/2024, Expires: 02/01/2025Start: 11-02-2024 End: 05-15-8857Mctdvwmamnr sedimentation rateSEDIMENTATION RATE, WESTERGREN Lab Routine 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) Expected: 11/02/2024, Expires: 02/01/2025leveland ClinicComment on above: Expected: 11/02/2024, Expires: 02/01/2025Start: 11-02-2024 End: 75-63-1208jdkcggcgha76/15/2025 10:00 AM EDT [facility]iative [facility] [address] [place] [address] Irene Han, ACCOUNT SERVICES ASSOCIATE.TRAINING AND DEVELOPMENT DIRECTOR [address] [place] [address] FUP in 3 monthsPalliative MedicineComment on above:FUP in 3 monthsStart: 11-02-2024 End: 53-85-2490Gvzykho encounter dlybopebv75/15/2025 10:00 AM EDT Office Visit Palliative Medicine [address] [place] [address] Irene Han APRN.TRAINING AND DEVELOPMENT DIRECTOR [address] [place] [address] FUP in 3 monthsPalliative MedicineComment on above:FUP in 3 monthsStart: 38-45-5942Kgcrphcfs vaccinationInfluenza Vaccine (#1)[facility] HealthcareStart: 09-10-2024 End: 57-24-9841Mjqshqn encounter tnugfgxnj84/24/2025 9:30 AM EDT Office Visit [facility] [address] [place] [address] Sheila Lin, NUCLEAR POWERPLANT MECHANIC [address] [facility] [address] [facility] LPS IMStart: 09-09-2024 End: 10-13-9491Glzopen encounter oquqgzseg42/23/2025 10:20 AM EDT Office Visit [facility] OB [address] [phone] Cristine Sharma NUCLEAR POWERPLANT MECHANIC [address] [place] [phone] [facility] BCP OBStart: 07-08-2025Medicare Annual Wellness (AWV)Medicare Annual Wellness (AWV)[facility] HealthcareStart: 08-12-2024 End: 33-04-2459T-peptideC-peptide Lab Routine Hormone disorder Expected: 08/12/2024 (Approximate), Expires: 08/12/2025NOMS HealthcareComment on above: Expected: 08/12/2024 (Approximate), Expires: 08/12/2025Start: 08-12-2024 End: 38-37-5739Nwzxkprq freeCortisol, free Lab Routine Hormone disorder Expected: 08/12/2024 (Approximate), Expires: 08/12/2025NOPA HealthcareComment on above:Expected: 08/12/2024 (Approximate), Expires: 08/12/2025Start: 08-12-2024 End: 91-20-2803Xdgxtub [Mass/volume] in Serum or PlasmaGlucose, random Lab Routine Hormone disorder Expected: 08/12/2024 (Approximate), Expires: 08/12/2025 [facility] HealthcareComment on above:Expected: 08/12/2024 (Approximate), Expires: 08/12/2025Start: 08-12-2024 End: 18-02-9259Wnblkef, totalInsulin, total Lab Routine Hormone disorder Expected: 08/12/2024 (Approximate), Expires: 08/12/2025NOPA HealthcareComment on above:Expected: 08/12/2024 (Approximate), Expires: 08/12/2025Start: 08-12-2024 End: 87-22-5421MU Breast - bilateral ScreeningBilateral screening mammogram Imaging Routine Breast cancer screening by mammogram Expected: 08/12/2024 (Approximate), Expires: 10/12/2025[facility] Work Phone: comment on above:Expected: 08/12/2024 (Approximate), Expires: 10/12/2025Start: 08-12-2024 End: 18-72-0990Nbwwqdggz serumSerotonin serum Lab Routine Hormone disorder Expected: 08/12/2024 (Approximate), Expires: 08/12/2025NOPA HealthcareComment on above:Expected: 08/12/2024 (Approximate), Expires: 08/12/2025Start: 08-12-2024 End: 30-69-9337ZmyjgkelihiqcLeixkfjvdvqxm Lab Routine Hormone disorder Expected: 08/12/2024 (Approximate), Expires: 08/12/2025N[facility] HealthcareComment on above: Expected: 08/12/2024 (Approximate), Expires: 08/12/2025Start: 08-12-2024 End: 51-72-5618Xmawsllyjklfo AntibodyThyroglobulin Antibody Lab Routine Hormone disorder Expected: 08/12/2024 (Approximate), Expires: 08/12/2025[facility] Comment on above:Expected: 08/12/2024 (Approximate), Expires: 08/12/2025Start: 08-12-2024 End: 71-11-9882Hakjxnnzzwo [Units/volume] in Serum or PlasmaNOMS Healthcare Comment on above:Ordered: 08/12/2024Expected: 08/12/2024 (Approximate), Expires: 08/12/2025Start: 08-12-2024 End: 95-24-9947Vjnssjh encounter hsusnnprv83/25/2025 10:00 AM EDT Office Visit [facility] OB [address] [phone] Cristine Sharma, NUCLEAR POWERPLANT MECHANIC [address] [place] [address] [facility] OBStart: 08-03-2024 End: 46-95-9023Ccyicq-up kbdoqqsje98/16/2025 10:00 AM EDT Visit (SP) Office Hematology/Oncology [address] [place] [address] Ruperto Ledezma MD [address] [place] [address] 3 month follow upHematology/OncologyComment on above:3 month follow upStart: 08-03-2024 End: 14-15-8161Sehjjdj encounter bdisrqqal38/16/2025 9:45 AM EDT Office Visit [facility] Laboratory [address] [facility] [place] [address] 3 month follow upNortCovenant Medical Center LaboratoryComment on above:3 month follow upStart: 07-30-2024 End: 82-17-1808NVKNAAYEHQPK TOXICOLOGY PANEL, [facility]INEProm[facility] Work Phone: Comment on above:Expected: 07/30/2024, Expires: 10/29/2024Start: 07-30-2024 End: 70-80-7731Dzizlkj encounter utkexmfgg29/12/2025 10:00 AM EDT Office Visit Palliative Medicine [address] [place] [address] Irene Han, LORY.TRAINING AND DEVELOPMENT DIRECTOR [address] [place] [address] Return in about 3 months (around 07/24/2024).Palliative MedicineComment on above:Return in about 3 months (around 07/24/2024).Start: 07-29-2024 End: 54-72-7740Tctwse-up spwkkxexn60/11/2025 1:30 PM EDT [facility] Pulmonary Medicine [address] [facility] [place] [address] 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 APRN.TRAINING AND DEVELOPMENT DIRECTOR [address] [place] [address] follow up with APPPulmonary Medicine Comment on above:follow up with APPStart: 07-21-2024 End: 16-28-8091Cwfjfqv encounter bbcuayvto94/03/2025 1:40 PM EDT Office Visit [facility] [address] [place] [address] Bee Vail MD [address] [facility] [place] [address] NSTEMI (non-ST elevated myocardial infarction) (CMS/HCC) (Primary Dx); Acute systolic heart failure (CMS/HCC); Mixed hyperlipidemia (CMS/HCC); Inappropriate sinus tachycardia (CMS/HCC); Hx of pulmonary embolusN[facility]S [facility] Comment on above:NSTEMI (non-ST elevated myocardial infarction) (CMS/HCC) (Primary Dx); Acute systolic heart failure (CMS/HCC); Mixed hyperlipidemia (CMS/HCC); Inappropriate sinus tachycardia (CMS/HCC); Hx of pulmonary embolusStart: 06-08-2024 End: 65-16-7622RH Breast - bilateral ScreeningBilateral screening mammogram Imaging Routine Screening mammogram for breast cancer Expected: 06/08/2024, Expires: 08/08/2025[facility] Work Phone: comment on above:Expected: 06/08/2024, Expires: 08/08/2025Start: 06-08-2024 End: 81-27-7143Ytensmj encounter jgpeuaqxd60/21/2025 8:00 AM EDT Office Visit [facility] [address] [place] [address] Sheila Lin, NUCLEAR POWERPLANT MECHANIC [address] [facility] [place] [address] [facility] IMStart: 05-29-2024 End: 99-06-2121Txvxhif encounter qfshzpodb20/11/2025 8:30 AM EDT Appointment Radiology [address] [place] [address] Chest Xray RadiologyComment on above:Chest XrayStart: 05-15-2024 End: 39-33-9855Rudvxzw encounter nhrcrpeci19/28/2025 9:15 PM EDT Office Visit Neurology [address] [place] [address] Pulmonary hypertension (HCC) [I27.20]NeurologyComment on above:Pulmonary hypertension (HCC) [I27.20]Start: 05-12-2024 End: 15-83-5880sraxifnuag87/25/2025 8:30 AM EDT [facility] Pulmonary Medicine [address] [facility] [place] [address] 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, ACCOUNT SERVICES ASSOCIATE.TRAINING AND DEVELOPMENT DIRECTOR [address] [facility] [place] [address] VV with Kylie NPPulmonary MedicineComment on above:VV with Kylie NPStart: 05-04-2024 End: 85-49-5036Irqljb-up drnpmjkfu91/17/2025 10:00 AM EDT Visit (SP) Office Hematology/Oncology [address] [place] [address] Ruperto Ledezma MD [address] [place] [address] [place] [address] 6 christiane h follow up after pet scan and labHematology/OncologyComment on above:6 christiane h follow up after pet scan and labStart: 04-29-2024 End: 66-97-7621Dcqnolz encounter oqmmrafvd58/12/2025 1:00 PM EDT Office Visit Pulmonary Medicine [address] [place], [place] [phone] Pulmonary Hypertension: Please make arrangements for the following patient to have an iCPET with Dr. Lopez on 04/29 at 1pm.Pulmonary MedicineComment on above: Pulmonary Hypertension: Please make arrangements for the following patient to have an iCPET with Dr. 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) Expected: 04/27/2024 (Approximate), Expires: 05/06/2025[facility] Work Phone: Comment on above:Expected: 04/27/2024 (Approximate), Expires: 05/06/2025Start: 04-27-2024 End: 01-56-6470Jceezqm encounter procedureRadiology Pet CTComment on above:Pet scanStart: 04-23-2024 End: 64-67-5181Shwikoo encounter kakmekwpk59/06/2025 2:00 PM EST Office Visit Palliative Medicine [address] [place] [address] Irene Han, ACCOUNT SERVICES ASSOCIATE.TRAINING AND DEVELOPMENT DIRECTOR [address] [place] [address] FUP in 8 weeksPalliative MedicineComment on above:FUP in 8 weeksStart: 04-08-2024 End: 37-54-9941Rpvpbuo encounter procedureNOMS SWS ALLComment on above:Arrived Start: 03-20-2024 End: 49-03-8684Erbihzm encounter qdwwiqhga44/31/2025 9:15 PM EST Office Visit Neurology [address] [place] [address] Pulmonary hypertension (HCC) [I27.20]NeurologyComment on above:Pulmonary hypertension (HCC) [I27.20]Start: 03-13-2024 End: 32-80-0113Uunzkpnly to same day surgery yhbpst2603/13/2024 8:30 AM EST - 03/13/2024 10:00 AM EST Surgery [facility] Invasive Cardiology [address] [place], [place] [address] [place] [address], [place] [address] [place] [address] RIGHT HEART CATHETERIZATION INCLUDING MEASUREMENT OF OXYGEN SATURATION AND CARDIAC OUTPUT [facility] Invasive CardiologyComment on above:RIGHT HEART CATHETERIZATION INCLUDING MEASUREMENT OF OXYGEN SATURATION AND CARDIAC OUTPUT Start: 13-98-7943Etsoxwsoow hospital visit by qgenqdiqb54/24/2025 8:30 AM EST Hospital Encounter [facility] Invasive Cardiology [address] [place] [address] [facility] [place] [address] [place] [address] Pulmonary HTN (HCC) [I27.20] [facility] Invasive CardiologyComment on above:Pulmonary HTN (HCC) [I27.20]Start: 03-13-2024 End: 12-50-6316Kaaup heart cath o2 saturation & cardiac outputFV CATHStart: 54-49-8219Hnhgj microalbumin profileDry Run ClinicStart: 03-11-2024 End: 89-39-2663Lnapvvj encounter sleeivyej91/22/2025 8:00 AM EST Office Visit [facility] [address] [place] [address] Sheila Lin NP [address] [place] [address] [facility] IMStart: 03-02-2024 End: 65-70-8491gccbhcocyb78/13/2025 4:00 PM EST [facility] Pain Management [address] [facility] [place] [address] Katarzyna Orosco, ACCOUNT SERVICES ASSOCIATE.TRAINING AND DEVELOPMENT DIRECTOR [address] [facility] [place] [address] VV with KatarzynaMickin ManagementComment on above:VV with JessicaStart: 03-02-2024 End: 35-97-2062Rctzyel encounter melbeqxqt21/13/2025 10:00 AM EST Office Visit [facility] [address] [place] [address] Sheila Lin NUCLEAR POWERPLANT MECHANIC [address] [facility] [place] [address] [facility] IMStart: 02-27-2024 End: 16-33-3406Veuthd-up lyegfothy74/09/2025 2:30 PM EST [facility] Palliative Medicine [address] [place] [address] Irene Han, ACCOUNT SERVICES ASSOCIATE.TRAINING AND DEVELOPMENT DIRECTOR [address] [facility] [place] [address] schedule virtual follow up with me in about 2 months Palliative MedicineComment on above:schedule virtual follow up with me in about 2 monthsStart: 02-27-2024 End: 72-26-5070Rkgshbp encounter zniaepgqi13/09/2025 2:30 PM EST Office Visit Palliative Medicine [address] [place] [address] Irene Han, ACCOUNT SERVICES ASSOCIATE.TRAINING AND DEVELOPMENT DIRECTOR [address] [place] [address] schedule virtual follow up with me in about 2 months Palliative MedicineComment on above:schedule virtual follow up with me in about 2 monthsStart: 02-24-2024 End: 22-68-9850Xepzuj-up kzikgzysh30/06/2025 3:00 PM EST Visit (SP) Office Hematology/Oncology [address] [place] [address] [place], [place] [phone] Ruperto Ledezma MD [address] [place] [address] [place] [address] 3 Month Lab Follow UpHematology/OncologyComment on above:3 Month Lab Follow UpStart: 02-24-2024 End: 32-15-4435Soiapls encounter emujvwuwr31/06/2025 2:45 PM EST Office Visit [facility] Laboratory [address] [place] [address] 3 Month Follow Up LabsNortCovenant Medical Center LaboratoryComment on above:3 Month Follow Up LabsStart: 02-20-2024 End: 52-42-0006Isajrmaswz / Tetanus Antibody PanelDiphtheria / Tetanus Antibody Panel Lab Routine Recurrent sinus infections Expected: 02/20/2024 (Approximate), Expires: 02/19/2025N[facility] HealthcareComment on above:Expected: 02/20/2024 (Approximate), Expires: 02/19/2025Start: 02-20-2024 End: 64-03-5610Tlihw pneumoniae antibody serotypesStrep pneumoniae antibody serotypes Lab Routine Pneumonia of right upper lobe due to Streptococcus p neumoniae ([facility]) Expected: 02/20/2024 (Approximate), Expires: 02/19/2025[facility] Work Phone: Comment on above:Expected: 02/20/2024 (Approximate), Expires: 02/19/2025Start: 01-01-2025Medicare Advantage Annual Wellness Visit Medicare Advantage Annual Wellness VisitC[facility] Centertart: 02-11-2024 End: 14-00-9961Zryypyr encounter orzqajwau16/24/2024 9:00 AM EST [facility] Cardiology [address] [place] [phone] [place] [address] [place], [place] [phone] Return in about 2 weeks (around 01/17/2024).CardiologyComment on above:Return in about 2 weeks (around 01/17/2024).Start: 02-10-2024 End: 32-46-2244iuoispjflx04/23/2024 3:00 PM EST Visit (SP) Office Hematology/Oncology [address] [place] [address] [place], [place] [phone] Ruperto Ledezma MD [address] [place] [address] [place] [address] 12/18-L/M For Pt To Call Our Office Back Need To R/S This Appt BRM Will Not Be In The OfficeHematology/OncologyComment on above:12/18-L/M For Pt To Call Our Office Back Need To R/S This Appt BRM Will Not Be In The OfficeStart: 02-10-2024 End: 07-78-1837Owrfyq-up lcyenqjeh78/23/2024 3:00 PM EST Visit (SP) Office Hematology/Oncology [address] [place] [address] [place], [place] [phone] Ruperto Ledezma MD [address] [place] [address] [place] [address] 3 month follow up with labHematology/OncologyComment on above:3 month follow up with labStart: 02-10-2024 End: 45-32-2709Imlztmr encounter [facility] LaboratoryComment on above:LABS12/18-L/M For Pt To Call Our Office Back Need To R/S This Appt BRM Will Not Be In The OfficeStart: 02-10-2024 End: 35-13-0924WSH W Auto Differential panel - BloodCOMPLETE BLOOD COUNT AND DIFFERENTIAL Lab Routine 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) Other pulmonary embolism without acute cor pulmonale, unspecified chronicity (HCC) Chemotherapy-induced neuropathy (HCC) Expected: 02/10/2024, Expires: 05/11/2024 [facility]Comment [facility]:Expected: 02/10/2024, Expires: 05/11/2024Start: 02-10-2024 End: 44-43-1337Vmxkdymoqkegi metabolic 2000 panel - Serum or PlasmaCOMPREHENSIVE METABOLIC PANEL Lab Routine 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) Other pulmonary embolism without acute cor pulmonale, unspecified chronicity (HCC) Chemotherapy-induced neuropathy (HCC) Expected: 02/10/2024, Expires: 05/11/2024 [facility] ShawComment on above:Expected: 02/10/2024, Expires: 05/11/2024Start: 02-05-2024 End: 50-34-6859Xjfjlul encounter procedureNOMS SWS ALLComment on above:echo Start: 05-87-6396Cmimysrih vaccinationInfluenza Vaccine (#1)[facility] Comment on above:Postponed from 10/20/2023 (Patient Refused)Start: 01-21-2024 End: 27-32-4788Lmuigxe encounter oylwmbfll44/03/2024 1:30 PM EST Office Visit Pulmonology [facility] [address] [place] [address] [place] [address] [address] [place], [place] [phone] Pulmonary hypertension (HCC) [I27.20] [facility]ment on above:Pulmonary hypertension (HCC) [I27.20]Start: 01-15-2024 End: 22-35-9194Iyfghiv encounter procedurePulmonary MedicineComment on above: Acute hypoxic respiratory failure (HCC) [J96.01]Weight 220 / Order in EPIC // DX: 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 Start: 01-14-2024 End: 86-34-9142Ulkyyba encounter /26/2024 8:30 AM EST Office Visit Pulmonary Medicine [address] [facility] [place] [address] 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 APRN.TRAINING AND DEVELOPMENT DIRECTOR [address] [place] [address] 5 weeksPulmonary MedicineComment on above:5 weeksStart: 01-08-2024 End: 72-28-9295Azddosf encounter /20/2024 8:00 AM EST Office Visit Cardiology [address] [place] [address] Leta, [place] [employer] Weaver [facility] [address] [place] [address] echo CardiologyComment on above:echoStart: 01-06-2024 End: 82-12-0943GTVVRKBX BLOOD GASESARTERIAL BLOOD GASES Lab Routine Hypoxia Expected: 01/06/2024, Expires: 01/05/2025[facility] Work Phone: Comment on above:Expected: 01/06/2024, Expires: 01/05/2025Start: 01-06-2024 End: 70-40-4387Knhiied encounter syictnkgv48/18/2024 2:00 PM EST Office Visit Pulmonary Medicine [address] [place] [address] [place] [address] [place] [address] Becerril 01/05 at 2pulmonary MedicineComment on above:add on Per dr Becerril 01/05 at 2pOKtart: 01-03-2024 End: 42-32-0666Vlptvwf encounter procedureCardiologyComment on above:Pleural effusion, left [J90]; Pulmonary hypertension (HCC) [I27.20]Pleural effusion, left [J90]Start: 12-27-2023 End: 42-37-6868Qzdegam encounter stuugqxpg16/08/2024 7:45 AM EST Appointment Radiology Pet CT [address] [place] [address] [place] [address] CT CHEST WO IVCONRadiology Pet CTComment on above:CT CHEST WO IVCONStart: 12-26-2023 End: 91-59-4714Qcvgtu-up /07/2024 2:00 PM EST [facility] Palliative Medicine [facility] [place] [address] Irene Han APRN.TRAINING AND DEVELOPMENT DIRECTOR [address] [place] [address] Follow UpPalliative MedicineComment on above:Follow UpStart: 12-26-2023 End: 20-33-5039Mfkdybx encounter procedureRadiologyComment on above:Pneumonia due to infectious organism, unspecified laterality, unspecified part of lung [J18.9]chronic pain/discuss injectionsStart: 12-23-2023 End: 69-46-2452apxlrkbfci51/04/2024 2:30 PM [facility] Palliative Medicine [address] [place] [address] Irene Han APRN.TRAINING AND DEVELOPMENT DIRECTOR [address] [place] [address] VV in apprx. 4 weeks. 12/22 okay per L.T.Palliative MedicineComment on above:VV in apprx. 4 weeks. 12/22 okay per L.T.Start: 12-18-2023 End: 84-57-2863Yxlgvfw encounter lmbvqatwr52/30/2024 9:40 AM EDT Office Visit [facility] [address] [address] Gabrielle Zepeda MD [address] [address] [facility] ALLStart: 12-17-2023 End: 42-16-5088Myadccu encounter /29/2024 8:30 AM EDT Office Visit Pulmonary Medicine [address] [place] [address] 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 APRN.TRAINING AND DEVELOPMENT DIRECTOR [address] [place] [address] Follow upPulmonary MedicineComment on above:Follow upStart: 12-11-2023 End: 64-72-4695Ibumoyk encounter oacrejycs93/23/2024 12:00 PM EDT Appointment Radiology Pet CT [address] [place] [address] [place] [address] PET scan Radiology Pet CTComment on above:PET scanStart: 12-04-2023 End: 51-29-4773Ozjqjpglpy / Tetanus Antibody PanelDiphtheria / Tetanus Antibody Panel Lab Routine Recurrent sinus infections Expected: 12/04/2023 (Approximate), Expires: 12/03/2024[facility] HealthcareComment on above:Expected: 12/04/2023 (Approximate), Expires: 12/03/2024Start: 12-04-2023 End: 86-18-4089Plzdowr electrophoresis, serumProtein electrophoresis, serum Lab Routine Recurrent sinus infections Expected: 12/04/2023 (Approximate), Expires: 12/03/2024[facility] Work Phone: Comment on above:Expected: 12/04/2023 (Approximate), Expires: 12/03/2024Start: 12-04-2023 End: 28-21-8946Yommw pneumoniae antibody serotypesStrep pneumoniae antibody serotypes Lab Routine Recurrent sinus infections Expected: 12/04/2023 (Khoi roximate), Expires: 12/03/2024[facility] HealthcareComment on above:Expected: 12/04/2023 (Approximate), Expires: 12/03/2024Start: 12-04-2023 End: 87-54-0464Yglkfal encounter prwispjau03/16/2024 9:20 AM EDT Office Visit [facility] [address] [phone] Gabrielle Zepeda MD [address] [address] ArrivedNOMS SWS ALLComment on above:ArrivedStart: 11-28-2023 End: 23-20-5792ZD Head WO contrastCT head wo IV contrast Imaging Routine Daily headache Expected: 11/28/2023, Expires: 11/27/2024[facility] Work Phone: comment on above:Expected: 11/28/2023, Expires: 11/27/2024Start: 11-28-2023 End: 51-86-9137HR Chest 2 ViewsXR chest 2 views Imaging Routine Pneumonia due to infectious organism, unspecified laterality, unspecified part of lung Acute respiratory failure, unspecified whether with hypoxia or hypercapnia (CMS/HCC) Restrictive lung disease Expected: 11/28/2023, Expires: 11/05/2024[facility] Work Phone: comment on above:Expected: 11/28/2023, Expires: 11/05/2024Start: 11-28-2023 End: 21-46-3507Jeksiql encounter /10/2024 10:30 AM EDT Office Visit Pain Management [address] [place] [address] Kodi Pantoja MD [address] [place] [address] chronic pain/discuss injectionsPain ManagementComment on above:chronic pain/discuss injectionsStart: 11-28-2023 End: 54-14-4425Xfxmegm encounter procedureNOMS LPS IMStart: 11-21-2023 End: 24-82-2437Okjvxvy encounter exqasklhi33/03/2024 8:30 AM EDT Office Visit Pulmonary Medicine [address] [place] [address] 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, ACCOUNT SERVICES ASSOCIATE.TRAINING AND DEVELOPMENT DIRECTOR [address] [place] [address] pneumoniaPulmonary MedicineComment on above:pneumoniaStart: 11-20-2023 End: 87-29-0876Dydlstqo CD4 count procedureT-helper cells (CD4) count Lab Routine Pneumonia of right upper lobe due to Streptococcus pneumoniae ([facility]) Recurrent sinus infections Expected: 11/20/2023 (Approximate), Expires: 11/19/2024[facility] HealthcareComment on above:Expected: 11/20/2023 (Approximate), Expires: 11/19/2024Start: 11-20-2023 End: 33-19-7891EAI W Auto Differential panel - BloodCBC and differential Lab Routine Pneumonia of right upper lobe due to Streptococcus pneumoniae ([facility]/HCC) Recurrent sinus infections Expected: 11/20/2023 (Approximate), Expires: 11/19/2024[facility] HealthcareComment on above:Expected: 11/20/2023 (Approximate), Expires: 11/19/2024Start: 11-20-2023 End: 57-56-9151Zzapddpfsa / Tetanus Antibody PanelDiphtheria / Tetanus Antibody Panel Lab Routine Pneumonia of right upper lobe due to Streptococcus pneumoniae (CMS/HCC) Recurrent sinus infections Expected: 11/20/2023 (Approximate), Expires: 11/19/2024[facility] HealthcareComment on above:Expected: 11/20/2023 (Approximate), Expires: 11/19/2024Start: 11-20-2023 End: 58-21-0854GKX-1/HIV-2 antigen/antibody combination immunoassayHIV-1 and HIV-2 antibodies Lab Routine Pneumonia of right upper lobe due to Streptococcus pneumoniae (CMS/HCC) Recurrent sinus infections Expected: 11/20/2023 (Approximate), Expires: 11/19/2024[facility] HealthcareComment on above:Expected: 11/20/2023 (Approximate), Expires: 11/19/2024Start: 11-20-2023 End: 11-87-1667ZiQ [Mass/volume] in Serum or PlasmaIgA Lab Routine Pneumonia of right upper lobe due to Streptococcus pneumoniae (CMS/HCC) Recurrent sinus infections Expected: 11/20/2023 (Approximate), Expires: 11/19/2024[facility] HealthcareComment on above:Expected: 11/20/2023 (Approximate), Expires: 11/19/2024Start: 11-20-2023 End: 79-63-8091DpF [Units/volume] in Serum or PlasmaIgE Lab Routine Pneumonia of right upper lobe due to Streptococcus pneumoniae (CMS/HCC) Recurrent sinus infections Expected: 11/20/2023 (Approximate), Expires: 11/19/2024[facility] HealthcareComment on above:Expected: 11/20/2023 (Approximate), Expires: 11/19/2024Start: 11-20-2023 End: 79-22-9358MjP [Mass/volume] in Serum or PlasmaIgG Lab Routine Pneumonia of right upper lobe due to Streptococcus pneumoniae (CMS/HCC) Recurrent sinus infections Expected: 11/20/2023 (Approximate), Expires: 11/19/2024[facility] Work Phone: Comment on above:Expected: 11/20/2023 (Approximate), Expires: 11/19/2024Start: 11-20-2023 End: 02-06-1575OwG [Mass/volume] in Serum or PlasmaIgM Lab Routine Pneumonia of right upper lobe due to Streptococcus pneumoniae (CMS/HCC) Recurrent sinus infections Expected: 11/20/2023 (Approximate), Expires: 11/19/2024[facility] HealthcareComment on above:Expected: 11/20/2023 (Approximate), Expires: 11/19/2024Start: 11-20-2023 End: 81-55-3311JCIIJJXMUN ANTIGEN AND MITOGEN PROLIFERATION PANELLYMPHOCYTE ANTIGEN AND MITOGEN PROLIFERATION PANEL Lab Routine Pneumonia of right upper lobe due toStreptococcus pneumoniae (CMS/HCC) Recurrent sinus infections Expected: 11/20/2023 (Approximate), Expires: 11/19/2024NOMS HealthcareComment on above:Expected: 11/20/2023 (Approximate), Expires: 11/19/2024Start: 11-20-2023 End: 30-10-1527NMWSLNU BINDING LECTINMANNOSE BINDING LECTIN Lab Routine Pneumonia of right upper lobe due to Streptococcus pneumoniae (CMS/HCC) Recurrent sinus infections Expected: 11/20/2023 (Approximate), Expires: 11/19/2024NOPA HealthcareComment on above:Expected: 11/20/2023 (Approximate), Expires: 11/19/2024Start: 11-20-2023 End: 31-70-9646Ejpykzs toxoid, IgGTetanus toxoid, IgG Lab Routine Pneumonia of right upper lobe due to Streptococcus pneumoniae (CMS/HCC) Recurrent sinus infections Expected: 11/20/2023 (Approximate), Expires: 11/19/2024NOMS HealthcareComment on above:Expected: 11/20/2023 (Approximate), Expires: 11/19/2024Start: 11-20-2023 End: 81-76-9867Eskihjp encounter procedureNOMS SWS ALLComment on above:Arrived Start: 11-14-2023 End: 09-10-3569bzzukipgrwKytdhwgala MedicineComment on above:FU in 4 weeks VV Start: 11-11-2023 End: 55-08-2805Oyvhcr-up encounterHematology/OncologyComment on above:3 month follow up with labStart: 11-11-2023 End: 63-51-4549Etknwzt encounter procedureNortCovenant Medical Center LaboratoryComment on above:3 month follow up with labLABSStart: 11-06-2023 End: 91-21-8922Ermyliv encounter procedureNOMS LPS IMComment on above:Pneumonia due to infectious organism, unspecified laterality, unspecified part of lung (Primary Dx); Acute respiratory failure, unspecified whether with hypoxia or hypercapnia (CMS/HCC); Restrictive lung diseaseStart: 10-31-2023 End: 73-43-9281Iegjevh encounter pjgazhquo05/12/2024 9:00 AM EDT Office Visit Pain Management [address] [facility] [place] [address] Katarzyna Orosco, LORY.TRAINING AND DEVELOPMENT DIRECTOR [address] [place] [address] Chronic painPain ManagementComment on above:Chronic painStart: 10-28-2023 End: 09-69-8863Dvbzjib encounter [facility] Radiology Ultrasound Comment on above:Pleural effusion, left [J90]Pleural effusion, left [J90]; Pulmonary hypertension (HCC) [I27.20]Start: 22-65-5904Cgxivzrzz vaccination [facility]art: 10-17-2023 End: 88-72-7912Njquwsx encounter bdrfzveob19/29/2024 10:00 AM EDT Office Visit Palliative Medicine [address] [place] [address] Irene Han, ACCOUNT SERVICES ASSOCIATE.TRAINING AND DEVELOPMENT DIRECTOR [address] [place] [address] schedule in office with me in about 4 weeksPalliative MedicineComment on above:schedule in office with me in about 4 weeksStart: 10-15-2023 End: 53-72-6146Ddblzyo encounter qyheyusjf56/27/2024 10:15 AM EDT Procedure Pulmonary Medicine [address] [place] [address] Pulmonary hypertension (HCC) [I27.20]Pulmonary MedicineComment on above: Pulmonary hypertension (HCC) [I27.20]Start: 10-09-2023 End: 24-90-7035Uarsphv encounter begfcsodk32/21/2024 11:00 AM EDT Office Visit Rheumatology [address] [place] [address] Simin Brandt MD [address] [place] [address] Psoriatic arthritis (HCC) [L40.50]RheumatologyComment on above:Psoriatic arthritis (HCC) [L40.50]Start: 10-08-2023 End: 88-10-9190mfwqbipxyt23/20/2024 12:00 PM EDT OT/PT/Speech Visit [facility] Speech Therapy [address] [place] [address] Jeny Rahman, [facility] [address] [place] [address] Hoarseness [R49.0][facility] Speech Therapy Comment on above:Hoarseness [R49.0]Start: 10-08-2023 End: 91-64-1044Rocoyrp encounter qpqboxdcs47/20/2024 8:00 AM EDT Office Visit Rheumatology [address] [place] [address] Simin Brandt MD [address] [place] [address] Psoriatic arthritis (HCC) [L40.50]RheumatologyComment on above:Psoriatic arthritis (HCC) [L40.50]Start: 10-03-2023 End: 57-38-1062Libkwwn encounter osbwuxszo73/15/2024 10:00 AM EDT Appointment [facility] Radiology Gastrointestinal [address] [place] [address] XR ESOPHAGRAMSalt [facility]al [facility] Radiology GastrointestinalComment on above:XR ESOPHAGRAMStart: 09-26-2023 End: 74-62-0221Amsvyqv encounter procedurePulmonary MedicineComment on above: Return in about 6 months (around 09/26/2023).Pulmonary hypertension (HCC) [I27.20] Start: 09-23-2023 End: 33-00-3672Crtobgs encounter aqabvsfza20/05/2024 11:30 AM EDT Office Visit Cardiology [address] [place] [address] [place] [address] [place] [address] Pleural effusion, left [J90]; Pulmonary hypertension (HCC) [I27.20]CardiologyComment on above:Pleural effusion, left [J90]; Pulmonary hypertension (HCC) [I27.20]Start: 09-19-2023 End: 38-64-9870dyufnuaaws43/01/2024 10:00 AM EDT [facility] Palliative Medicine [address] [place] [address] Irene Han, ACCOUNT SERVICES ASSOCIATE.TRAINING AND DEVELOPMENT DIRECTOR [address] [place] [address] Please schedule in 5 weeks virtuallyPalliative MedicineComment on above: Please schedule in 5 weeks virtuallyStart: 09-18-2023 End: 90-85-3693Hswsusr encounter lbggrfyzu37/31/2024 9:40 AM EDT Office Visit Otolaryngology [address] [place] [address] Anil Franco PA-C [address] [place] [address] Return for Follow up after MBS, XR esophagram; sooner if clinically indicated.. OtolaryngologyComment on above:Return for Follow up after MBS, XR esophagram; sooner if clinically indicated..Start: 09-16-2023 End: 43-75-2973ztdsitubjq70/29/2024 2:30 PM EDT [facility] Palliative Medicine [address] [place] [address] Irene Han, ACCOUNT SERVICES ASSOCIATE.TRAINING AND DEVELOPMENT DIRECTOR [address] [place] [address] Please schedule in 5 weeks virtuallyPalliative MedicineComment on above: Please schedule in 5 weeks virtuallyStart: 08-27-2023 End: 75-33-9520Xljekja encounter yylwxesmf46/09/2024 8:00 AM EDT Office Visit Orthopaedics [address] [place] [address] Sherly Hansen PA-C [address] [place], [place] [id number] right wrist painOrthopaedicsComment on above:right wrist painStart: 68-71-3106Ykuahemyk vaccinationInfluenza Vaccine (#1)NOMS HealthcareComment on above:Postponed from 10/19/2022 (Patient Refused)Start: 08-12-2023 End: 10-65-5231Frtodoz encounter procedureGeneral RadiologyComment on above: right wrist painReturn in about 4 weeks (around 08/08/2023) for virtual visit . Start: 08-08-2023 End: 21-04-0153vvedzrupos89/20/2024 10:00 AM EDT [facility] Palliative Medicine [address] [place] [address] Irene Han APRN.TRAINING AND DEVELOPMENT DIRECTOR [address] [place] [address] Return in about 4 weeks (around 08/08/2023) for virtual visit .Palliative MedicineComment on above:Return in about 4 weeks (around 08/08/2023) for virtual visit .Start: 08-06-2023 End: 08-48-0222Cvqffbg encounter gsrnfyaza02/18/2024 7:00 AM EDT Office Visit Pulmonary Medicine [address] [place] [address] Carole Ruano APRN.TRAINING AND DEVELOPMENT DIRECTOR [address] [place] [address] Hospital Follow Up for PneumoniaPulmonary MedicineComment on above:Hospital Follow Up for PneumoniaStart: 08-05-2023 End: 92-06-2489qunnomxgtq85/17/2024 10:15 AM EDT Visit (SP) Office Hematology/Oncology [address] [place] [address] Ruperto Ledezma MD [address] [place] [address] 8 week labHematology/OncologyComment on above:8 week labStart: 08-05-2023 End: 12-65-1671Twgzeoj encounter wdxukxyun96/17/2024 10:00 AM EDT Office Visit [facility] Laboratory [address] [place] [address] 8 week labNortCovenant Medical Center Laboratory Comment on above:8 week labStart: 07-19-2023 End: 89-01-7041Uylfdtk encounter /31/2024 1:20 PM EDT Appointment Radiology [address] [place] [address] XR ESOPHAGRAM RadiologyComment on above:XR ESOPHAGRAMStart: 07-17-2023 End: 68-00-4115Ytactrw encounter uccedzbbb95/29/2024 9:40 AM EDT Office Visit Otolaryngology [address] [place] [address] Anil Franco PA-C [address] [place] [address] Return for Follow up after MBS, XR esophagram; sooner if clinically indicated.. OtolaryngologyComment on above:Return for Follow up after MBS, XR esophagram; sooner if clinically indicated..Start: 07-12-2023 End: 61-03-3145Ubqzcev encounter [facility] Radiology Ultrasound Comment on above:Pleural effusion, left [J90]Pleural effusion, left [J90]; Pulmonary hypertension (HCC) [I27.20]Start: 2023 End: 73-35-0631Pjxwyxw encounter msczqahmy01/23/2024 10:00 AM EDT Office Visit Palliative Medicine [address] [place] [address] Irene Han, ACCOUNT SERVICES ASSOCIATE.TRAINING AND DEVELOPMENT DIRECTOR [address] [place] [address] Return in about 8 weeks (around 2023).Palliative MedicineComment on above:Return in about 8 weeks (around 2023).Start: 07-10-2023 End: 60-03-1556Rysodec encounter procedureSalt [facility] Radiology GastrointestinalComment on above:Dysphagia, unspecified type [R13.10]Start: 05-16-2024Medicare Annual Wellness (AWV)Medicare Annual Wellness (AWV)[facility]: [facility]28[facility]2023 End: 21-81-7446Frsnoaa encounter alegptlru86/10/2024 11:00 AM EDT Office Visit Pulmonary Medicine [address] [place] [address] [place] [address] [place] [address] Becerril Ms. Weller also needs to be added onto Dr. Becerril's schedule at [place] on Saturday06/28/23 at 11 am (it is a hospital day for her but adding her on per Dr. Becerril). Dr. Becerril would alsolike her put on the cancellation list for a sooner appt.Pulmonary MedicineComment on above:ok per Dr. Becerril Ms. Weller also needs to be added onto Dr. Becerril's schedule at [place] on Saturday06/28/23at 11 am (it is a hospital day for her but adding her on per Dr. Becerril). Dr. Becerril would also like her put on the cancellation list for a sooner appt.Start: 06-13-2023 End: 61-75-4996Lfnftln encounter rzjgolqlr46/25/2024 11:00 AM EDT Office Visit Pulmonary Medicine [address] [place], [place] [phone] Carole Ruano, ACCOUNT SERVICES ASSOCIATE.TRAINING AND DEVELOPMENT DIRECTOR [address] [place] [address] follow up for express carePulmonary MedicineComment on above:follow up for express careStart: 06-03-2023 End: 63-03-2495Muzcgik encounter yjybzfzvf39/15/2024 8:30 AM EDT Office Visit [facility] [address] [place] [id number] Bee Vail MD [address] [address] [facility] IMStart: 04-16-2023 End: 67-39-7753NNF W Auto Differential panel - BloodCBC + DIFF Lab Routine 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) Expected: 04/16/2023, Expires: 07/16/2023[facility] Work Phone: Comment on above:Expected: 04/16/2023, Expires: 07/16/2023Start: 04-16-2023 End: 07-47-0102Lhyuwfdargyko metabolic 2000 panel - Serum or PlasmaCOMP METABOLIC PANEL Lab Routine 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) Expected: 04/16/2023, Expires: 07/16/2023[facility] Work Phone: Comment on above:Expected: 04/16/2023, Expires: 07/16/2023Start: 04-16-2023 End: 22-34-4472Ysmkedau [Mass/volume] in Serum or PlasmaCORTISOL BLD Lab Routine 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) Expected: 04/16/2023, Expires: 07/16/2023[facility] Work Phone: Comment on above:Expected: 04/16/2023, Expires: 07/16/2023Start: 04-16-2023 End: 59-46-1881Jhulduqwpao sedimentation rateSED RATE WESTERGREN Lab Routine 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) Expected: 04/16/2023, Expires: 07/16/2023[facility] Work Phone: Comment on above:Expected: 04/16/2023, Expires: 07/16/2023Start: 10-80-6655Yjtvzysypg Health ScreeningBehavioral Health ScreeningCincinnati Children's Hospital Medical Centertart: 81-12-0120Nyznfmhpwy AssessmentDepression AssessmentCincinnati Children's Hospital Medical Centertart: 05-92-2692Drxgfpvh identified in Urine by CultureOhioHealth Doctors Hospitaltart: 01-28-2023 End: 79-72-5229Szrgjhls [Mass/volume] in Serum or PlasmaPromedica Fostoria Community Hospital Work Phone: Comment on above:Expected: 01/28/2023, Expires: 04/29/2023Start: 28-62-7816Razsw depression screening assessmentDEPRESSION SCREENINGCincinnati Children's Hospital Medical Centertart: 74-65-8089Qjvgvdbeo for malignant neoplasm of cervixNOMS HealthcareStart: 52-82-2346Vibsujrps vaccinationSelect Medical [facility] Start: 08-01-2022 End: 12-36-5049Tzvpsdal identified in Unspecified specimen by Respiratory cultureRESP CULTURE + STAIN Microbiology Routine Productive cough Expected: 08/01/2022, Expires: 10/01/2022[facility] Work Phone: Comment on above:Expected: 08/01/2022, Expires: 10/01/2022Start: 68-89-8648AsowkkcxahqUnvxscobs ClinicStart: 13-41-5751Qkdlcqklm for malignant neoplasm of breastCincinnati Children's Hospital Medical Centertart: 64-15-5141Cizyr depression screening assessmentDEPRESSION SCREENINGCincinnati Children's Hospital Medical Centertart: 04-10-2022 End: 34-51-4000Qrvgjvtjsnlsu metabolic 2000 panel - Serum or PlasmaCOMP METABOLIC PANEL Lab Routine 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) Expected: 04/10/2022, Expires: 06/10/2022[facility] Work Phone: comment on above:Expected: 04/10/2022, Expires: 06/10/2022Start: 04-10-2022 End: 10-48-5239Mbilfvkuuhn [Units/volume] in Serum or PlasmaTSH BLD Lab Routine 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) Expected: 04/10/2022, Expires: 06/10/2022[facility] Work Phone: comdykk on above:Expected: 04/10/2022, Expires: 06/10/2022Start: 04-10-2022 End: 58-77-0389Qvvebnden (T4) free [Mass/volume] in Serum or PlasmaT4 FREE/FREE THYROX Lab Routine 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) Expected: 04/10/2022, Expires: 06/10/2022[facility] Work Phone: comment on above:Expected: 04/10/2022, Expires: 06/10/2022Start: 49-16-7640Hstmh depression screening assessmentDEPRESSION SCREENINGCincinnati Children's Hospital Medical Centertart: 60-52-4452SPCYXYGTGV ASSESSMENTDEPRESSION ASSESSMENTCincinnati Children's Hospital Medical Centertart: 01-25-2022 End: 80-86-0332BCWE PANEL, UR QUANTPromedica Fostoria Community Hospital Work Phone: Comment on above:Expected: 01/25/2022, Expires: 03/27/2022Start: 01-18-2022 End: 87-66-1671Fbxdccekimaxc metabolic 2000 panel - Serum or PlasmaCOMP METABOLIC PANEL Lab Routine 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) Expected: 01/18/2022, Expires: 03/20/2022[facility] Work Phone: comdgkb on above:Expected: 01/18/2022, Expires: 03/20/2022Start: 01-18-2022 End: 78-04-4387Unvvisfjomo [Units/volume] in Serum or PlasmaTSH BLD Lab Routine 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) Expected: 01/18/2022, Expires: 03/20/2022[facility] Work Phone: comihbt on above:Expected: 01/18/2022, Expires: 03/20/2022Start: 01-18-2022 End: 91-65-6098Tzwsmqavi (T4) free [Mass/volume] in Serum or PlasmaT4 FREE/FREE THYROX Lab Routine 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) Expected: 01/18/2022, Expires: 03/20/2022[facility] Work Phone: comxbso on above:Expected: 01/18/2022, Expires: 03/20/2022Start: 11-15-2021 End: 93-22-3691Jnvjenonlpknu metabolic 2000 panel - Serum or PlasmaCOMP METABOLIC PANEL Lab Routine 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) Expected: 11/15/2021, Expires: 01/15/2022[facility] Work Phone: comulcj on above:Expected: 11/15/2021, Expires: 01/15/2022tart: 11-15-2021 End: 53-56-4570Dkujpashoif [Units/volume] in Serum or PlasmaTSH BLD Lab Routine 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) Expected: 11/15/2021, Expires: 01/15/2022[facility] Work Phone: comtfho on above:Expected: 11/15/2021, Expires: 01/15/2022tart: 11-15-2021 End: 98-62-6076Gttgeepih (T4) free [Mass/volume] in Serum or PlasmaT4 FREE/FREE THYROX Lab Routine 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) Expected: 11/15/2021, Expires: 01/15/2022[facility] Work Phone: comycrj on above:Expected: 11/15/2021, Expires: 01/15/2022tart: 10-26-2021 End: 70-06-1925Cgpbzjynoigzc metabolic 2000 panel - Serum or PlasmaCOMP METABOLIC PANEL Lab Routine 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) Expected: 10/26/2021, Expires: 12/26/2021[facility] Work Phone: comyimq on above:Expected: 10/26/2021, Expires: 12/26/2021tart: 10-26-2021 End: 48-35-7615Curnawucgmj [Units/volume] in Serum or PlasmaTSH BLD Lab Routine 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) Expected: 10/26/2021, Expires: 12/26/2021[facility] Work Phone: comment on above:Expected: 10/26/2021, Expires: 12/26/2021tart: 10-26-2021 End: 41-81-1336Igtvredcm (T4) free [Mass/volume] in Serum or PlasmaT4 FREE/FREE THYROX Lab Routine 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) Expected: 10/26/2021, Expires: 12/26/2021[facility] Work Phone: comment on above:Expected: 10/26/2021, Expires: 12/26/2021tart: 06-76-8449Ogqgttexk [facility] Hospitaltart: 09-06-2021 End: 14-32-3467Tqiimbcqsspaz metabolic 2000 panel - Serum or PlasmaCOMP METABOLIC PANEL Lab Routine 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) Expected: 09/06/2021, Expires: 11/06/2021[facility] Work Phone: comment on above:Expected: 09/06/2021, Expires: 11/06/2021tart: 09-06-2021 End: 63-54-6500Ccyrhvudqtx [Units/volume] in Serum or PlasmaTSH BLD Lab Routine 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) Expected: 09/06/2021, Expires: 11/06/2021[facility] Work Phone: comment on above:Expected: 09/06/2021, Expires: 11/06/2021tart: 09-06-2021 End: 64-57-0608Bgulhdmbr (T4) free [Mass/volume] in Serum or PlasmaT4 FREE/FREE THYROX Lab Routine 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) Expected: 09/06/2021, Expires: 2CFulton [facility] Center Work Phone: comment on above:Expected: 09/06/2021, Expires: 11/06/2021tart: 75-94-3225EIHPENIYFZ ASSESSMENTDEPRESSION ASSESSMENTCincinnati Children's Hospital Medical Centertart: 12-90-2500Avisaocff for malignant neoplasm of cervixPap SmearNOMS HealthcareStart: 99-59-0346Nbycbzbji vaccinationINFLUENZA (#1)[facility] Start: 39-42-8809ILD TESTINGHPV TESTINGCincinnati Children's Hospital Medical Centertart: 09-08-2019 Screening for malignant neoplasm of cervixHPV TestingCincinnati Children's Hospital Medical Centertart: 29-08-8776Wwwodszpp for malignant neoplasm of cervixCervical Cancer Screening [facility] Centertart: 46-33-1947AXU TESTINGPAP TESTINGCincinnati Children's Hospital Medical Centertart: 56-69-6759Ewyzkzplk for malignant neoplasm of cervixCincinnati Children's Hospital Medical Centertart: 30-21-7233KXVEVPDSBLXL (2 - PPSV23 if available, else PCV20)PNEUMOCOCCAL (2 - PPSV23 if available, else PCV20)[facility] Centertart: 09-69-2217IAOJXDWALXQL (2 - PPSV23 or PCV20)PNEUMOCOCCAL (2 - PPSV23 or PCV20)[facility] Centertart: 32-03-9118GZFYBIJPFHUJ (2 - PPSV23 if available, else PCV20)PNEUMOCOCCAL (2 - PPSV23 if available, else PCV20)[facility] Centertart: 25-63-3063WOPDTBKVNAID (2 - PPSV23 or PCV20)PNEUMOCOCCAL (2 - PPSV23 or PCV20)[facility] Centertart: 02-34-5025Vykcgbexnmuy vaccinationCincinnati Children's Hospital Medical Centertart: 07-72-2162RAG Vaccine (1 - Risk 3-dose SCDM series)HPV Vaccine (1 - Risk 3-dose SCDM series)[facility]ertart: 16-22-9498Ufwuinsmv for malignant neoplasm of cervixPap SmearNOMS HealthcareStart: 33-02-1043VWCGPQQR VACCINE (1 of 2)SHINGRIX VACCINE (1 of 2) [facility] Cent[facility]art: 27-61-9705NQE PNEUMOVAX 5 YEARS APART PRIOR TO AGE 65 (#1)TWO PNEUMOVAX 5 YEARS APART PRIOR TO AGE 65 (#1)[facility] Cent[facility]art: 97-22-9486Doiuoc PCP Team Chronic Disease VisitAnnual PCP Team Chronic Disease VisitCincinnati Children's Hospital Medical Centertart: 15-39-4160Lworzzd ScreeningAnxiety Screening [facility]ertart: 11-60-3925Ulxwenoasm ScreeningDepression Screening [facility] Centertart: 59-81-7662KXXJK-19 VACCINE (1)COVID-19 VACCINE (1) [facility]: 89-02-4344PIAVV-19 VACCINE (#1)COVID-19 VACCINE (#1) [facility]: 92-93-7022DWIET-19 VACCINE (#1)COVID-19 VACCINE (#1) [facility]art: 92-49-9003QCE Vaccine: Recommended Based On RiskHPV Vaccine: Recommended Based On RiskSelect Medical [facility] Clinic Rehabilitation Hospital, Edwin ShawBacteria identified in Unspecified specimen by Respiratory cultureRESPIRATORY CULTURE AND STAIN Microbiology Routine Bronchitis Restrictive lung disease Ordered: 06/13/2023 [facility] Work Phone: Comment on above:Ordered: 06/13/2023acteria identified in Unspecified specimen by Respiratory cultureRESPIRATORY CULTURE AND STAIN Microbiology Routine Pneumonia due to infectious organism, unspecified laterality, unspecified part of lung Ordered: 11/21/2023[facility] HospitalComment on above:Ordered: 11/21/2023 End: 02-55-8843YQK W Auto Differential panel - BloodCBC + DIFF Lab Routine 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 O ccurrences starting 03/31/2022 until 03/30/2023[facility] Work Phone: comment on above:Every other week for 25 Occurrences starting 03/31/2022 until 03/30/2023omprehensive metabolic 1999 panel - Serum or PlasmaCOMP METABOLIC PANEL Lab Routine 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) Ordered: 2CFulton [facility] Center Work Phone: comment on above:Ordered: 05/17/2021 End: 92-22-3440Rcfbboulgucrq metabolic 2000 panel - Serum or PlasmaCOMP METABOLIC PANEL Lab Routine 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 Occurrences starting 03/31/2022 until 03/30/2023 [facility] Work Phone: comment on above:Every other week for 25 Occurrences starting 03/31/2022 until 4COVID & INFLUENZA A/B & RSV NAAT, ROUTINE COVID & INFLUENZA A/B & RSV NAAT, ROUTINE Microbiology Routine Wheezing 05/31/2023 3:30 PM EDTCFulton County [facility] Center Work Phone: End: 76-31-4167GR Chest WO contrastCT CHEST WO IVCON Radiology Routine Pneumonia due to infectious organism, unspecified laterality, unspecified part of lung 1 Occurrences starting 11/21/[address] [place] [address] Work Phone: Comment on above:1 Occurrences starting 11/21/2023 until 12/20/20248306ELFO-rrkmnbaSIGI-qwtmapu Lab Routine Hormone disorder Ordered: 08/12/2024NOPA HealthcareComment on above:Ordered: 08/12/2024 End: 78-11-1877RikfrvsmkevmqwswTOJG Cardiology Routine Nodular sclerosing Hodgkin's lymphoma, unspecified body region (HCC) BAEZ (dyspnea on exertion) Chronic cough 1 Occurrences starting 12/27/2021 until 3CF[facility] Work Phone: Comment on above:1 Occurrences starting 12/27/2021 until 12/27/2022 End: 06-37-8186StssxxqcnjgyqgevQKHR Cardiology Routine Pleural effusion, left Pulmonary hypertension (HCC) Other acute pulmonary embolism, unspecified whether acute cor pulmonale present (HCC) 1 Occurrences starting 01/03/2024 until 01/02/2025[facility] Work Phone: Comment on above:1 Occurrences starting 01/03/2024 until 01/02/2025EstradiolEstradiol Lab Routine Hormone disorder Ordered: 08/12/2024NOPA HealthcareComment on above:Ordered: 08/12/2024EstroneEstrone Lab Routine Hormone disorder Ordered: 08/12/2024NOPA HealthcareComment on above: Ordered: 08/12/2024Ferritin [Mass/volume] in Serum or PlasmaFerritin Lab Routine Hormone disorder Ordered: 08/12/2024[facility] HospitalComment on above:Ordered: 08/12/2024 End: 64-92-6416HUFR DIFFUSION CAPACITY (DLCO)LUNG DIFFUSION CAPACITY (DLCO) PFT Routine Chronic cough 1 Occurrences starting 08/02/2022 until 09/01/2023 [facility] Work Phone: Comment on above:1 Occurrences starting 08/02/2022 until 09/01/2023LUNG DIFFUSION CAPACITY (DLCO)LUNG DIFFUSION CAPACITY (DLCO) PFT Routine Chronic cough 03/28/2023 1:39 PM [facility] Work Phone: End: 70-38-5108EGQH DIFFUSION CAPACITY (DLCO)LUNG DIFFUSION CAPACITY (DLCO) PFT Routine Acute hypoxic respiratory failure (HCC) Bronchiectasis without complication (HCC) Restrictive lung disease 1 Occurrences starting 12/25/2023 until [facility]/23/2025[facility] Occurrences starting 12/25/2023 until 01/23/2025LUNG DIFFUSION CAPACITY (DLCO)LUNG DIFFUSION CAPACITY (DLCO) PFT Routine Acute hypoxic respiratory failure (HCC) Bronchiectasis wi thout complication (HCC) Restrictive lung disease 01/15/2024 9:13 AM [facility] Work Phone: Microorganism identified in Unspecified specimen by CultureAFB CULT + STAIN Microbiology Routine Pneumonia due to infectious organism, unspecified laterality,unspecified part of lung Ordered: 11/21/2023 [facility] ShawComment on above:Ordered: 11/21/2023 End: 82-37-2389LYMLIP OXIDE, EXHALEDNITRIC OXIDE, EXHALED PFT Routine Bronchitis 1 Occurrences starting 08/02/2022 until 09/01/2023[facility] Work Phone: Comment on above:1 Occurrences starting 08/02/2022 until 09/01/2023 End: 62-85-7589NW Lung Ventilation and PerfusionNM LUNG VENT / PERF VQ Radiology Routine Other secondary pulmonary hypertension (HCC) 1 Occurrencesstarting 01/06/[address] [place] [address] Work Phone: Comment on above:1 Occurrences starting 01/06/2024 until 02/04/2025 End: 18-10-8632US PET/CT SKULL-THIGH SUBSEQUENTNM PET/CT SKULL-THIGH SUBSEQUENT Radiology Routine Hodgkin lymphoma, unspecified Hodgkin lymphoma type, unspecified body region (HCC) 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) 1 Occurrences starting 06/14/[address] [place] [address] Work Phone: comment on above:1 Occurrences starting 06/14/2021 until 07/14/2022 End: 97-70-7039MH PET/CT SKULL-THIGH SUBSEQUENTNM PET/CT SKULL-THIGH SUBSEQUENT Radiology Routine Nodular sclerosing Hodgkin's lymphoma, unspecified body region (HCC) 1 Occurrences starting 11/15/[address] [place] [address] Work Phone: comment on above:1 Occurrences starting 11/15/2021 until 12/15/2022 End: 44-24-6300GV PET/CT SKULL-THIGH SUBSEQUENTNM PET/CT SKULL-THIGH SUBSEQUENT Radiology Routine Nodular sclerosing Hodgkin's lymphoma, unspecified body region (HCC) 1 Occurrences starting 07/18/[address] [place] [address] Work Phone: comzeki on above:1 Occurrences starting 07/18/2022 until 08/17/2023 End: 89-69-8092SP PET/CT SKULL-THIGH SUBSEQUENTNM PET/CT SKULL-THIGH SUBSEQUENT Radiology Routine 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) 1 Occurrences starting 08/22/[address] [place] [address] Work Phone: comvqoh on above:1 Occurrences starting 08/22/2022 until 09/21/2023 End: 31-16-6010CT PET/CT SKULL-THIGH SUBSEQUENTNM PET/CT SKULL-THIGH SUBSEQUENT Radiology Routine 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) 1 Occurrences starting 01/01/[address] [place] [address] Work Phone: Comment on above:1 Occurrences starting 01/01/2023 until 01/31/2024 End: 98-27-6165GTFYOEKP WITH AMBULATIONOXIMETRY WITH AMBULATION PFT Routine Pulmonary hypertension (HCC) 1 Occurrences starting 08/06/2023until 09/04/2024 [facility] Work Phone: Comment on above:1 Occurrences starting 08/06/2023 until 09/04/2024PET+CT Guidance for localization of tumor of Skull base to mid-thigh-- W 18F-FDG IVNM PET/CT SKULL-THIGH SUBSEQUENT Radiology Routine 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) 12/11/2023 1:28 PM [facility] Work Phone: End: 12-59-2293TUJ+CT Guidance for localization of tumor of Skull base to mid-thigh-- W 18F-FDG IVNM PET/CT SKULL-THIGH SUBSEQUENT Radiology Routine 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) 1 Occurrences starting 11/02/2024 until 12/02/2025[facility] Work Phone: Comment on above:1 Occurrences starting 11/02/2024 until 12/02/2025 End: 95-39-9846AjrmxnrtylgisRWTSDCEAWXVOT (PSG) Procedures Routine Pulmonary hypertension (HCC) 1 Occurrences starting 01/21/[address] [place] [address] Work Phone: Comment on above:1 Occurrences starting 01/21/2024 until 01/20/2025ProgesteroneProgesterone Lab Routine Hormone disorder Ordered: 08/12/2024[facility] HealthcareComment on above:Ordered: 08/12/2024QUANT TOX PANEL QUANT TOX PANEL Lab Routine Opioid use agreement exists 07/30/2024 10:26 AM EDT [facility] End: 18-16-1589ET videography Hypopharynx and Esophagus Views W liquid and paste contrast PO during swallowingXR MODIFIED BARIUM SWALLOW W SPEECH THERAPY Radiology Routine Dysphagia, unspecified type 1 Occurrences starting 05/22/[address] [place] [address] Work Phone: Comment on above:1 Occurrences starting 05/22/2023 until 06/20/2024Sex hormone binding globulinSex hormone binding globulin Lab Routine Hormone disorder Ordered: 08/12/2024[facility] HealthcareComment on above: Ordered: 08/12/2024 End: 09-54-4334EEG MINUTE WALKSIX MINUTE WALK PFT Routine Acute hypoxic respiratory failure (HCC) Bronchiectasis without complication (HCC) Restrictive lung disease 1 Occurrences starting 12/25/2023 until 01/23/2025[facility] Comment on above:1 Occurrences starting 12/25/2023 until 01/23/2025SIX MINUTE WALKSIX MINUTE WALK PFT Routine Acute hypoxic respiratory failure (HCC) Bronchiectasis without complication (HCC) Restrictive lung disease 01/15/2024 10:24 AM [facility] Work Phone: SPECIMEN VALIDITY, URINESPECIMEN VALIDITY, URINE Lab Routine Opioid use agreement exists 07/30/2024 10:26 AM [facility] End: 87-27-0361MPDVVMUBBF - BASELINE AND POST DILATORSPIROMETRY - BASELINE AND POST DILATOR PFT Routine Chronic cough 1 Occurrences starting 08/02/2022 until 09/01/2023[facility] Work Phone: Comment on above:1 Occurrences starting 08/02/2022 until 09/01/2023SPIROMETRY - BASELINE AND POST DILATORSPIROMETRY - BASELINE AND POST DILATOR PFT Routine Chronic cough 03/28/2023 1:39 PM [facility] Work Phone: End: 31-62-9437APKZXEOXGZ WITH DILATOR IF OBSTRUCTEDSPIROMETRY WITH DILATOR IF OBSTRUCTED PFT Routine Acute hypoxic respiratory failure (HCC) Bronchiectasis without complication (HCC) Restrictive lung disease 1 Occurrences starting 12/25/[address] [place] [address] Work Phone: Comment on above:1 Occurrences starting 12/25/2023 until 01/23/2025SPIROMETRY WITH DILATOR IF OBSTRUCTEDSPIROMETRY WITH DILATOR IF OBSTRUCTED PFT Routine Acute hypoxic respiratory failure (HCC) Bronchiectasis without complication (HCC) Restrictive lung disease 01/15/2024 9:13 AM [facility] Work Phone: STREPTOCOCCUS PNEUMONIA AB (IGG) (23 SEROTYPES) STREPTOCOCCUS PNEUMONIA AB (IGG) (23 SEROTYPES) Lab Routine Pneumonia of right upper lobe due to Streptococcus pneumoniae (CMS/HCC) Recurrent sinus infections Ordered: 11/20/2023[facility] HealthcareComment on above:Ordered: 11/20/2023T3, reverseT3, reverse Lab Routine Hormone disorder Ordered: 08/12/2024[facility] HealthcareComment on above:Ordered: 08/12/2024T4 FREE/FREE THYROXT4 FREE/FREE THYROX Lab Routine 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) Ordered: [address] [place] [address] Work Phone: comment on above:Ordered: 05/17/2021TESTOSTERONE, FREE TESTOSTERONE, FREE Lab Routine Hormone disorder Ordered: 08/12/2024[facility] HealthcareComment on above:Ordered: 08/12/2024Testosterone, free, total Testosterone, free, total Lab Routine Hormone disorder Ordered: 08/12/2024[facility] HealthcareComment on above:Ordered: 08/12/2024THIN PREP TIS PAP AND HR HPV DNA THIN PREP TIS PAP AND HR HPV DNA Pathology and Cytology Routine Well woman exam with routine gynecological exam Ordered: 08/12/2024[facility] HealthcareComment on above:Ordered: 08/12/2024Thyroid peroxidase antibodyThyroid peroxidase antibody Lab Routine Hormone disorder Ordered: 08/12/2024[facility] HealthcareComment on above: Ordered: 08/12/2024Thyrotropin [Units/volume] in Serum or PlasmaTSH BLD Lab Routine 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) Ordered: [address] [place] [address] Work Phone: comfino on above:Ordered: 05/17/2021 End: 54-36-5327Fphiekrlyhb [Units/volume] in Serum or PlasmaTSH BLD Lab Routine 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 Occu rrences starting 03/31/[address] [place] [address] Work Phone: comvgvs on above:Every other week for 25 Occurrences starting 03/31/2022 until 03/30/2023 End: 78-85-6830Udttkrpdb (T4) free [Mass/volume] in Serum or PlasmaT4 FREE/FREE THYROX Lab Routine 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 Occurrences starting 03/31/[address] [place] [address] Work Phone: comment on above:Every other week for 25 Occurrences starting 03/31/2022 until 03/30/2023Thyroxine (T4) free [Mass/volume] in Serum or PlasmaT4, free Lab Routine Hormone disorder Ordered: 08/12/2024[facility] HealthcareComment on above:Ordered: 08/12/2024Triiodothyronine (T3) Free [Mass/volume] in Serum or PlasmaT3, free Lab Routine Hormone disorder Ordered: 08/12/2024[facility] HealthcareComment on above:Ordered: 08/12/2024 End: 43-15-6714YA ChestUS CHEST EFFUSION SURVEY Radiology Routine Pleural effusion, left 1 Occur[facility]2023[facility] Work Phone: Comment on above:1 Occurrences starting 06/14/2023 until 07/13/2024US ChestUS CHEST EFFUSION SURVEY Radiology Routine Pleural effusion, left 01/03/2024 1:40 PM [facility] Work Phone: End: 77-14-5564ZJ ChestUS CHEST EFFUSION SURVEY Radiology Routine Pleural effusion 1 Occurrences starting 05/07/2024 [facility] Work Phone: Comment on above:1 Occurrences starting 05/07/2024 until 06/06/2025US ChestUS CHEST EFFUSION SURVEY Radiology Routine Pleural effusion 05/08/2024 8:05 PM [facility] Work Phone: Vitamin D 1,25 dihydroxyVitamin D 1,25 dihydroxy Lab Routine Hormone disorder Ordered: 08/12/2024[facility] HealthcareComment on above: Ordered: 08/12/2024 End: 39-25-4842OQ Chest PA and LateralXR CHEST 2V FRONTAL/LAT Radiology Routine Influenza with pneumonia 1 Occurrences starting 04/19/2023 until 05/18/2024 [facility] Work Phone: Comment on above:1 Occurrences starting 04/19/2023 until 05/18/2024XR Chest PA and LateralXR CHEST 2V FRONTAL/LAT Radiology Routine Influenza with pneumonia 04/19/2023 9:38 AM [facility] Work Phone: End: 82-40-6987VW Chest PA and LateralXR CHEST 2V FRONTAL/LAT Radiology Routine Pneumonia due to infectious organism, unspecified laterality, unspecified part of lung 1 Occurrences starting 08/06/[address] [place] [address] Comment on above:1 Occurrences starting 08/06/2023 until 09/04/2024XR Chest PA and LateralXR CHEST 2V FRONTAL/LAT Radiology Routine Pleural effusion Ordered: [address] [place] [address] Work Phone: Comment on above:Ordered: 05/12/2024 End: 25-72-9092IN Esophagus Views W contrast POXR ESOPHAGRAM Radiology Routine Dysphagia, unspecified type Gastroesophageal reflux disease, unspecified whether esophagitis present 1 Occurrences starting 05/22/[address] [place] [address] Work Phone: Comment on above:1 Occurrences starting 05/22/2023 until 06/20/2024 End: 31-31-2187SX Wrist - right PA and Lateral and ObliqueXR WRIST GENERAL 3V PA/LAT/OBL RIGHT Radiology Routine Pain 1 Occurrences starting 07/31/[address] [place] [address] Work Phone: Comment on above:1 Occurrences starting 07/31/[address] [place], [place] [address] Immunizations Immunization DateImmunizationNotesCare KtuyywpuSgxbujay16-02-1217gtvpajtvc, seasonal, injectable, preservative freeIrene Han ACCOUNT SERVICES ASSOCIATE.TRAINING AND DEVELOPMENT DIRECTOR Work Phone: [facility] ShawWmimxx29-12-4215fuenyievy virus vaccine, unspecified formulationCristine Sharma NUCLEAR POWERPLANT MECHANIC Work Phone: [facility] HospitalOudhbtdemd76-17-6186ffsjdactpikr polysaccharide vaccine, 23 valentTodd Duane RODRIGUEZ Work Phone: [facility] CampusWkiyfqbyni51-20-9606wlyggvg and diphtheria toxoids, adsorbed, preservative free, for adult use (2 Lf of tetanus toxoid and 2 Lf of diphtheria toxoid)Gabrielle Zepeda MD Work Phone: [facility] CampusCjngspppva55-60-3090gyebvmixl, injectable, quadrivalent, preservative Jessica Mancilla ACCOUNT SERVICES ASSOCIATE.TRAINING AND DEVELOPMENT DIRECTOR Work Phone: [facility] ShawRqubza67-20-3563sxagjmyqp virus vaccine, unspecified formulationCharlee Zhao ACCOUNT SERVICES ASSOCIATE.TRAINING AND DEVELOPMENT DIRECTOR Work Phone: cMer[facility]in HospitalOpwnae26-26-6451suvctfanf A and hepatitis B vaccineSylvia Mancilla APRN.TRAINING AND DEVELOPMENT DIRECTOR Work Phone: [facility] ShawIchnnh33-46-9294qditcwrqjjfw conjugate vaccine, 13 valentErmariusz Mancilla ACCOUNT SERVICES ASSOCIATE.TRAINING AND DEVELOPMENT DIRECTOR Work Phone: [facility] ShawItgijp12-79-8448gsgluugvzg and tetanus toxoids, adsorbed for pediatric useSylvia Mancilla APRN.TRAINING AND DEVELOPMENT DIRECTOR Work Phone: [facility] ShawQldzfq69-11-1032hriyjqnhpiz influenzae type b vaccine, PRP-OMP conjugateSylvia Mancilla APRN.TRAINING AND DEVELOPMENT DIRECTOR Work Phone: [facility] ShawWmkcaj28-18-2249sdivifdenepmi polysaccharide vaccine (MPSV4)Sylvia Gross ACCOUNT SERVICES ASSOCIATE.TRAINING AND DEVELOPMENT DIRECTOR Work Phone: [facility] ShawUcgfas40-73-3817jibmqdmzfdkc conjugate vaccine, 13 valentErika Gross ACCOUNT SERVICES ASSOCIATE.TRAINING AND DEVELOPMENT DIRECTOR Work Phone: [facility] ShawVunmfv03-18-3659dwnzqicxbg vaccine, inactivatedErika Gross ACCOUNT SERVICES ASSOCIATE.TRAINING AND DEVELOPMENT DIRECTOR Work Phone: [facility] ShawLhpykd82-71-9741ykmnmqh toxoid, adsorbed Sylvia Charo ACCOUNT SERVICES ASSOCIATE.TRAINING AND DEVELOPMENT DIRECTOR Work Phone: [facility] ShawTehbpd30-33-7502gstltjv toxoid, reduced diphtheria toxoid, and acellular pertussis vaccine, adsorbedEri Charo ACCOUNT SERVICES ASSOCIATE.TRAINING AND DEVELOPMENT DIRECTOR Work Phone: [facility] ShawFislgi25-04-6372sknckvjeyn and tetanus toxoids, adsorbed for pediatric useErikasandra Mancilla ACCOUNT SERVICES ASSOCIATE.TRAINING AND DEVELOPMENT DIRECTOR Work Phone: [facility] ShawJbzoyn15-50-9488cymlhuhacmu influenzae type b vaccine, PRP-OMP conjugateEri Charo ACCOUNT SERVICES ASSOCIATE.TRAINING AND DEVELOPMENT DIRECTOR Work Phone: [facility] ShawJqlfos57-50-4452edtifgyox A and hepatitis B vaccineEri Charo ACCOUNT SERVICES ASSOCIATE.TRAINING AND DEVELOPMENT DIRECTOR Work Phone: [facility] ShawMekwgy88-86-0410zamxdbpdi, injectable, quadrivalent, preservative freeEri Charo ACCOUNT SERVICES ASSOCIATE.TRAINING AND DEVELOPMENT DIRECTOR Work Phone: [facility] ShawKmugtm42-14-7194nwxgfqzdirrk conjugate vaccine, 13 valentErika Charo ACCOUNT SERVICES ASSOCIATE.TRAINING AND DEVELOPMENT DIRECTOR Work Phone: [facility] ShawEgwpwa43-87-7091dkpixqgbol vaccine, inactivatedErika [place] ACCOUNT SERVICES ASSOCIATE.TRAINING AND DEVELOPMENT DIRECTOR Work Phone: [facility] ShawHcxjyz49-08-1519vkdtugshgyn influenzae type b vaccine, PRP-OMP conjugateGerman Hospital ACCOUNT SERVICES ASSOCIATE.TRAINING AND DEVELOPMENT DIRECTOR Work Phone: [facility] ShawQzphcw25-52-6466bisnfrzbr A and hepatitis B vaccineGerman Hospital ACCOUNT SERVICES ASSOCIATE.TRAINING AND DEVELOPMENT DIRECTOR Work Phone: [facility] ShawSybjch55-09-7868Ixiqxxpdvyymz Groups C and Y and Haemophilus b Tetanus Toxoid Conjugate VaccineEriSan Antonio Community Hospital ACCOUNT SERVICES ASSOCIATE.TRAINING AND DEVELOPMENT DIRECTOR Work Phone: [facility] ShawFrtjyb02-71-9748ppknrahtivve conjugate vaccine, 13 valentErika Gross ACCOUNT SERVICES ASSOCIATE.TRAINING AND DEVELOPMENT DIRECTOR Work Phone: [facility] ShawQafcwe66-24-4701ivuiaorrct vaccine, inactivatedErika Gross ACCOUNT SERVICES ASSOCIATE.TRAINING AND DEVELOPMENT DIRECTOR Work Phone: [facility] ShawLozonl77-14-1785tgmnyvz toxoid, reduced diphtheria toxoid, and acellular pertussis vaccine, adsorbedErika Gross ACCOUNT SERVICES ASSOCIATE.TRAINING AND DEVELOPMENT DIRECTOR Work Phone: [facility] ShawHaoiei86-74-1912uopydvums B vaccine, adult dosageErika Gross ACCOUNT SERVICES ASSOCIATE.TRAINING AND DEVELOPMENT DIRECTOR Work Phone: [facility] ShawUunfeg55-14-7457wppdlczau B vaccine, adult dosageErika Gross ACCOUNT SERVICES ASSOCIATE.TRAINING AND DEVELOPMENT DIRECTOR Work Phone: [facility] ShawYxgugq81-50-5367wiuywyqin B vaccine, adult dosageErika Gross ACCOUNT SERVICES ASSOCIATE.[facility] Work Phone: [facility] ShawAuynif78-50-3646wksktzkvs B vaccine, pediatric or pediatric/adolescent dosageErika Gross ACCOUNT SERVICES ASSOCIATE.TRAINING AND DEVELOPMENT DIRECTOR Work Phone: [facility] ShawStgbjw45-39-1286najfoyrag B vaccine, pediatric or pediatric/adolescent dosageErika Gross ACCOUNT SERVICES ASSOCIATE.[facility] Work Phone: [facility] Payers DatePayer CategoryPayerPolicy [id number] (Managed Care)[employer] MEDICARE [id number] 2021MedicaidMEDICAID [place] [id number] 2020-Present [phone] [address] [place] [address] [id number] 2021Medicaid [id number] 2015MedicareMEDICARE MEDICARE A AND B [id number] 2014-Present [phone] [address] [address] [place] [address] [id number] [id number] 2..[id number] 2..1.293068.3.57[id number] 2..1.330291.3.57[id number] 2..1.301591.3.57[id number] 2..1.780076.3.57[id number] 2..1.884323.3.57[id number] 2..1.[id number] 2..1.801496.3.57[id number] 2.840.1.952742.3.57[id number] 2.0.1.240013.3.579.2.1259 [id number] [id number] [id number] Social History DateTypeDetailFacilityStart: 01-28-2012 End: 35-93-6604Syiqfxc smoking status NHISEx-smokerCincinnati [facility] Medical Centertart: 01-17-2002 End: 42-19-6008Gusxxwd of tobacco useCurrent smokerCincinnati Children's Hospital Medical Centertart: 01-17-2002 End: 37-49-0512Eresicq of tobacco useCigarette SmokerCincinnati Children's Hospital Medical Centertart: 01-28-2012 End: 84-51-6145Zcapgbr use and exposureSmokeless tobacco non-userCincinnati Children's Hospital Medical Centertart: 03-15-2021 End: 61-00-3967Rirmhis intakeCurrent drinker of alcohol (finding)[facility] Centertart: 03-15-2021 End: 02-39-4519Iqlhnjq intakeCincinnati Children's Hospital Medical Centertart: 60-87-7071Vxaefry SDOH Alcohol Rukrqmqkx4Aeuirrptx ClinicStart: 26-47-5333Silrytc SDOH Alcohol Std Pnqyvm9Fzcpzujys ClinicStart: 15-34-1822Beierpi SDOH Alcohol Comment2 drinks per monthCincinnati Children's Hospital Medical Centertart: 47-54-8609Ohu Assigned At BirthFemaleCOhio State Harding Hospitaltart: 01-04-2021 End: 22-77-0347Toluqiso to SARS-CoV-2 (event)Not sureCincinnati Children's Hospital Medical Centertart: 01-06-2022 End: 94-31-5617Zfgzgbde to SARS-CoV-2 (event)Unable to assessSelect Medical [facility] Start: 08-01-2022 End: 09-73-6483Plgievt use panelCincinnati Children's Hospital Medical Centertart: 01-20-2012 End: 37-68-7179Vvcmg Depression Screening Hzgdmbxaqt6Vohuweiva ClinicStart: 25-23-4627Hlyzxu identityIdentifies as female gender (finding)[facility] Start: 70-58-5571Buxira orientationHeterosexual (finding)[facility] ShawHow often to you have a drink containing alcohol?Monthly or lessSelect Medical [facility] Hospital, [facility] ShawHow many standard drinks containing alcohol do you have on a typical day?1 or 2 [facility] ShawHow often do you have 6 or more drinks on 1 occasion?Never [facility] ShawHistory of tobacco usePassive smokerCincinnati Children's Hospital Medical Centertart: 37-16-4965See Assigned At BirthNot on fileOzarks Community HospitalHa the electric, gas, oil, or water company threatened to shut off services in your home in past 12Mo NoCselect medical specialty hospital [facility] Clinic(I/We) worried whether (my/our) food would run out before (I/we) got money to buy more.Never trueCincinnati Children's Hospital Medical Centertart: 03-13-2024 End: 11-58-6752Gypvizzzi beverage intakeEx-drinker (finding)[facility] Medical Equipment Procedure CodeEquipment CodeEquipment Original TextEquipment IdentifierDatesPort Inf 1 Lum Attach Cath - [id number]: 23-46-8080Bnrbhwn on above: Description: [employer] PORT Goals DatePatient GoalDesired Activity/StatePersonal health goal Functional Status OjdjAgrrinxtkfJkdyybUqrrhqmn52-89-3592Yyinvfy Health Questionnaire 2 item (PHQ- 2) [Reported][facility] Community HospitalLeinccpioz27-27-2674QHV-1 quick depression assessment panel [Reported.PHQ][facility] [id number] difficult have these problems made it for you to do your work, take care of things at home, or get along with other people?Somewhat difficult 06/08/2024 8:00 AM Khalif Jiménez MA Somewhat difficultOzarks Community HospitalPweppusrml06-79-3775Dcwpdbo Health Questionnaire 2 item (PHQ-2) [Reported][facility] [id number] Health Questionnaire 2 item (PHQ-2) [Reported][facility] [id number] Health Questionnaire 2 item (PHQ-2) [Reported][facility] HospitalIiltnnmzqd31-32-1189Qwuvbnz Health Questionnaire 2 item (PHQ-2) [Reported][facility] HospitalFprrzissvd11-98-3049Vuh you deaf, or do you have serious difficulty hearingNo 09/23/2014 10:45 AM EDT Anayeli Pulliam LPN [facility] CenterSxqiwv48-75-6910Vef you blind, or do you have serious difficulty seeing, even when wearing glassesNo 09/23/2014 10:45 AM EDT Anayeli Pulliam LPN [facility]08-06-2015Do you have serious difficulty walking or climbing stairsYes 09/23/2014 10:45 AM EDT Anayeli Pulliam LPN [facility]08-06-2015Do you have difficulty dressing or bathingNo 09/23/2014 10:45 AM EDT Anayeli Pulliam LPN [facility] CenterVqdboz54-03-0181Lbigzyi of a physical, mental, or emotional condition, do you have difficulty doing errands alone such as visiting a physician's office or shoppingNo 09/23/2014 10:45 AM EDT [facility] Mental Status PjvcVyipdz[id number] of a physical, mental, or emotional condition, do you have serious difficulty concentrating, remembering, or making decisionsNo 09/23/2014 10:45 AM [facility] Clinical Notes 03-15-2017 to 12-23-2024 Note Date & [id number] NoteUT Cardiology - [facility] Subjective Celso Weller is a 44 y.o. year old female patient being seen for Follow-up (Patient is here today per her PCP request to talk about medications. Patient state she just hasn't felt right since her heart attach. Patient states she has been having vision changes blurred vision, lights look like strobe lights and flashes of light. PCP told her it she doesn't need to see neuro, that it was probably due to the corlanor which her pcp lower the dose. Patient stopped lasix due to cramps everywhere. Blood pressure are very low, which causes lightheaded, vision closing in.), Congestive Heart Failure, NSTEMI, Coronary Artery Disease, Pulmonary Hypertension, Shortness of Breath (SOB/BAEZ over the last couple of weeks, which she attributes to having a cold/sinus infection), Palpitations (Palpitations/racing heart), Dizziness (Dizziness/light headed with standing), and Fatigue (increased) Patient Active Problem List Diagnosis NSTEMI (non-ST elevated myocardial infarction) ([facility]/HCC) Primary hypertension Nodular lymphocyte predominant Hodgkin lymphoma (CMS/HCC) History of pulmonary embolism Uncomplicated asthma Hemoptysis Chronic hypoxic respiratory failure (CMS/HCC) Pulmonary hypertension (CMS/HCC) New daily persistent headache Acquired hypothyroidism Anxiety Asymptomatic premature menopause Autologous bone marrow transplantation status ([facility]/HCC) BMI 33.0-33.9,adult Chemotherapy-induced neuropathy Chronic prescription benzodiazepine use Gastroesophageal reflux disease Insomnia Major depressive disorder, single episode, mild Mild intermittent asthma Neuropathy 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 ([facility]/HCC) Opioid use agreement exists Peripheral neuropathy due to chemotherapy Pneumonitis Restrictive lung disease Psoriasis vulgaris Psoriatic arthritis ([facility]/HCC) Simple chronic bronchitis ([facility]) Tachycardia Uterine leiomyoma Vaginal high risk human papillomavirus (HPV) DNA test positive Vitamin D deficiency Voice hoarseness Acute systolic heart failure ([facility]/HCC) 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 Herpes zoster without complication Inappropriate sinus tachycardia Mixed hyperlipidemia Bronchiectasis ([facility]/HCC) Family History Problem Relation Name Age of Onset Heart attack Maternal Grandfather Heart attack Paternal Grandfather Social History Tobacco Use Smoking status: Former Types: Cigarettes Smokeless tobacco: Never Substance Use Topics Alcohol use: Yes Comment: occasional Drug use: Never Congestive Heart Failure Associated symptoms include palpitations. Pertinent negatives include no shortness of breath. Her past medical history is significant for CAD. Coronary Artery Disease Symptoms include palpitations. Pertinent negatives include no leg swelling or shortness of breath. Her past medical history is significant for CHF. Celso is seen in follow-up. I initially [...] pulmonary hypertension and valvular regurgitation at the [facility] but right heart catheterization that was performed in February 2024 did not show any significant pulmonary hypertension and her filling pressures were normal. She was transferred from the [facility] on 07/06/2024 due to NSTEMI. She was [...] of breath on exertion NYHA class II-III s (more content not included)...[facility] 12-22-2024 [place] [address] Referral Source: Dr. Pantoja pain management at [facility] CC: Chief Complaint Patient presents with Pain Chronic pain due to CA treatment SUBJECTIVE: Celso Weller is a 44 y.o. female with PMHx fo Nodular sclerosing Hodgkin's lymphoma s/p chemo and autologous stem cell transplant and palliative radiation to the spleen, liver, and lymph nodes, with resultant radiation fibrosis, Bronchiectasis and restrictive lung diease, NSTEMI s/p PCI, PE/DVT on Xeralto who presents for initial consultation chronic pain. Celso presents with chronic widespread pain involving joints including knees, hips, and shoulders, as well as back pain and neuropathy with shooting pains in feet. Patient also experiences severe debilitating muscle cramps in hands that form fists requiring manual opening, followed by significant post-cramping pain. Pain is exacerbated by minimal household activities, leaving patient feeling like 100 years old and unable to get out of bed the following day due to severe pain. Patient is currently taking oxycodone 10mg three times daily, which provides some relief but with limited longevity. Also taking gabapentin 600 mg three times daily, which helps with neuropathy symptoms as patient notices worsening when doses are missed. Currently on Cymbalta 30mg daily, switched from Remeron a few months ago without significant improvement noted. Previously tried Lyrica but discontinued due to intolerable side effects described as feeling really strange and not right. Previous interventions: - Oxycodone 10 mg QID - Nucynta 50 mg BID - Lyrica (didn't tolerate) - Gabapentin 600 mg TID - Cymbalta 30 mg daily Medical History[1] Problem List[2] Surgical History[3] Allergies[4] Family History[5] Review of Systems Objective Ht 1.829 m (6') Wt 101 kg (223 lb) LMP (LMP Unknown) BMI 30.24 kg/m??? Physical exam General: Alert and oriented x3, well developed, well nourished, no acute distress Head: normocephalic and atraumatic Eyes: anicteric sclera, normal eye movements Ears: normal hearing Chest/Lungs: quiet, easy, unlabored breathing. Heart: no clubbing, cyanosis, edema Skin: intact without suspicious lesions or rashes Neuropsych: alert and cooperative; normal mood/affect articulates well MR brain w and wo contrast 07/08/2024 Narrative MR BRAIN W AND WO CONTRAST CLINICAL [...] preserved by technique. No pathologic intraparenchymal enhancement. Impression * No acute intracranial abnormality, accounting for motion artifact. Electronically signed: LORIN BRANDT MD. CT head wo IV contrast 07/07/2024 Narrative Clinical information: Headache Comparison: None available. Technique: [...] well aerated No acute soft tissue abnormality. Impression Impression: * No acute intracranial abnormality. * Slitlike lateral lateral ventricles and partially empty sella can be seen in idiopathic intracranial hypertension. Clinical correlation recommended. Approved by:Jose Charlton07/07/2024 6:30 PM. I, Carlo Freeman,have reviewed the image(s) and agree with the findings in this report. Electronically signed: Carlo Freeman. Assessment/Plan Problem List Items Addressed This Visit Nervous Chemotherapy-induced neuropathy Other Nodular lymphocyte predominant Hodgkin lymphoma (CMS/HCC) Relevant Medications oxyCODONE (Roxicodone) 10 mg immediate release tablet DULoxetine (Cymbalta) [address] capsule Other Visit Diagnoses Cancer associated pain - Primary Relevant Medications oxyCODONE (Roxicodone) 10 mg immediate release tablet DULoxetine (Cymbalta) [address] capsule naloxone (Narcan) 4 mg/0.1 mL nasal spray Patient presents with chronic widespread pain including joint pain in knees, hips, and shoulders, back pain, neuropathic pain in feet, and severe muscle cramping in hands. (more content not included)...[facility]10-14-2025 History of Present illness Narrative* Bee Vail MD - 12/01/2024 2:40 PM EDT Images from the original note were not included. Subjective Patient ID: Celso Weller is a 44 y.o. female who presents for No chief complaint on file.. Urgent visit Pt called with c/o visual disturbances for the past two weeks. States her eye doctor told her to call her pcp. States that she seeing shadows and they sometimes move. Pt scheduled for this afternoon. The last few weeks she has been feeling worse When she first wakes up and goes into the living room, there are a lot of shadows and feels like things are moving She sees shadows on the sides of her vision and some movement - not double vision- Appears that an inanimate object is moving in her vision Other times feels like the lights flicker Other times a big dark shadow in the peripheral vision She called her eye doctor yesterday and they were worried about mini eye strokes They made her an appointment today but they wanted her to go to the ER yesterday which she did not do For the last week she cannot read anything up close Vision is worsening She just has not been feeling well Always has a pressure headache across the whole forehead as well Labs done yesterday Sed rate was normal Had a recent PET scan did not show any new abnormalities but did show a left small effusion Hx of CAD and heart failure BP is low today Reviewing med list The ivabradine and dose was increased Medications Ordered Prior to Encounter[1] Allergies[2] I have reviewed and reconciled the history and medication list with the patient today. Review of Systems All other systems reviewed and are negative. Visit Vitals BP 92/54 Pulse 81 Ht 6' SpO2 95% BMI 30.79 kg/m Smoking Status Former BSA [...] are equal, round, and reactive to light. Comments: Cannot fully visualize the fundus without dilating the eyes No obvious abnormality Neck: Vascular: No carotid bruit. Cardiovascular: Rate [...] abdominal tenderness. There is no guarding. Musculoskeletal: Cervical back: Normal range of motion and neck supple. Right lower leg: No edema. Left lower leg: No edema. Lymphadenopathy: Cervical: No cervical adenopathy. Skin: General: [...] content normal. Judgment: Judgment normal. Assessment/Plan 1. 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 Pt does have some pleural effusion on recent pet and diminished BS at bases Will contact cards for this 3. Acute nonintractable headache, unspecified headache type Sed rate normal yesterday 4. Hypotension, unspecified hypotension type Monitor BP with episodes and discuss with cards Next Appointment scheduled 03/17/2025 We will continue to follow up with this patient on a continued termite technician basis to monitor and treatthe above listed problems as well as their other chronic illnesses as part of a longitudinal care plan [1] Current Outpatient Medications on File Prior to Visit Medication Sig Dispense Refill albuterol HFA (ProAir HFA) 90 mcg/act inhaler Inhale 2 puffs every 4 (four) hours if needed for wheezing or shortness of breath 8.5 g 11 clopidogrel (Plavix) 75 MG tablet Take 75 mg by mouth Daily dexlansoprazole (Dexilant) [address] capsule Take 1 capsule (30 mg) by mouth Daily Do not crush or chew. 90 capsule 3 DULoxetine (Cymbalta) [address] capsule TAKE 1 CAPSULE (30 MG) BY MOUTH DAILY DO NOT CRUSH OR CHEW. 90 capsule 3 fluocinonide (Lidex) 0.05 % cream APPLY TO AFFECTED AREA TOPICALLY IN THE MORNING AND AT BEDTIME 60g 0 gabapentin (Neurontin) 300 MG capsule Take 2 capsules (600 mg) by mouth in the morning and 2 capsules (600 mg) in the evening and 2 capsules (600 mg) before bedtime. 270 capsule 3 Ivabradine HCl 5 MG tablet Take [...] 4 (four) times a day as needed foranxiety 120 tablet 2 metoprolol succinate XL (Toprol-XL) [...] if needed for nausea 30 tablet 2 rivaroxaban (Xarelto) 10 MG tablet Take 1 tablet (10 mg) by mouth Daily 90 tablet 3 rosuvastatin (Crestor) 40 MG tablet Take 40 mg by mouth Daily spironolactone (Aldactone) 25 MG tablet Take 12.5 mg by mouth in the morning. (Patient taking differently: Take 12.5 mg by mouth every other day) traZODone (Desyrel) 150 MG tablet Take 1 tablet (150 mg) by mouth as needed at bedtime for sleep 90tablet 3 [DISCONTINUED] baclofen (Lioresal) 5 MG tablet Take 5 mg by mouth in the morning and 5 mg in the evening and 5 mg before bedtime. (Patient not taking: Reported on 12/01/2024) [DISCONTINUED] estradiol (Estrace) 0.1 MG/GM vaginal cream 2g vaginal daily for 2 weeks, then 2 times weekly following initial 2 weeks (Patient not taking: Reported on 12/01/2024) 42.5 g 0 [DISCONTINUED] ipratropium (Atrovent) 0.06 % nasal spray Administer 2 sprays into each nostril in the morning and 2 sprays in the evening and 2 sprays before bedtime. (Patient not taking: Reported on12/01/2024) 15 mL 11 [DISCONTINUED] ipratropium-albuterol (Duo-Neb) 0.5-2.5 mg/3 mL nebulizer solution Take 3 mL by nebulization every 6 (six) hours (Patient not taking: Reported on 12/01/2024) 180 mL 3 [DISCONTINUED] rosuvastatin (Crestor) 20 MG tablet Take 20 mg by mouth Daily (Patient not taking: Reported on 12/01/2024) No current facility-administered medications on file prior to visit. [2] Allergies Allergen Reactions Chlorhexidine Unknown and Itching Other Reaction(s): Unknown Severe skin irritation. Had used for central line care Other reaction(s): Unknown Other reaction(s): Unknown Severe skin irritation. Had used for central line care Sulfa Antibiotics Unknown and Rash Other reaction(s): Unknown documented in this encounterOzarks Community HospitalZilocrycbh10-67-6737 Telephone encounter Note* Telephone Encounter - Bee Vail MD - 12/01/2024 9:34 AM EDT noted [facility] HospitalVkqdzyzxtv56-41-1236 Miscellaneous Notes* Telephone Encounter - Bee Vail MD - 12/01/2024 9:34 AM EDT noted * Telephone Encounter - Khalif Travis MA - 12/01/2024 9:28 AM EDT Pt called with c/o visual disturbances for the past two weeks. States her eye doctor told her to call her pcp. States that she seeing shadows and they sometimes move. Pt scheduled for this afternoon. documented in this [facility]10-14-2025 Telephone encounter Note* Telephone Encounter - Khalif Travis MA - 12/01/2024 9:28 AM EDT Pt called with c/o visual disturbances for the past two weeks. States her eye doctor told her to call her pcp. States that she seeing shadows and they sometimes move. Pt scheduled for this afternoon. [facility] [id number] NoteUT Cardiology - [facility] Subjective Celso Weller is a [...] heart failure (CMS/HCC) 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 Herpes zoster without complication Inappropriate sinus tachycardia Mixed hyperlipidemia Family History Problem Relation Name Age of Onset Heart attack Maternal Grandfather Heart attack Paternal Grandfather Social History Tobacco Use Smoking status: Former Types: Cigarettes Smokeless tobacco: Never Substance Use Topics Alcohol use: Yes Comment: occasional Drug use: Never HPI Celso is seen in follow-up. I initially [...] pulmonary hypertension and valvular regurgitation at the [facility] but right heart catheterization that was performed in February 2024 did not show any significant pulmonary hypertension and her filling pressures were normal. She was transferred from the [facility] on 07/06/2024 due to NSTEMI. She was [...] 2.27 m??? Physical Exam (more content not included)...[facility] 11-02-2024 Miscellaneous Notes* Telephone Encounter - Mitzi Nash RN - 11/02/2024 2:12 PM EDT Pt is jennifer from Dr. Ledezma I placed new orders please review and sign thanks Mitzi Nash RN documented in this encounterSelect [facility] Telephone encounter Note * Telephone Encounter - Mitzi Nash RN - 11/02/2024 2:12 PM EDT Pt is jennifer from Dr. Ledezma I placed new orders please review and sign thanks Mitzi Nash RN [facility]09-15-2025 History of Present illness Narrative* Irene Han APRN.TRAINING AND DEVELOPMENT DIRECTOR - 11/02/2024 10:00 AM EDT PALLIATIVE MEDICINE PROGRESS NOTE SERVICE DATE: November 02, 2024 IDENTIFICATION AND INTRODUCTION: Celso Weller is a 44 year old female This visit took place Virtually; I have communicated my name and active licensure. The patient's identity and physical location were verified at the time of this visit. The patient or their legal graphic art sales representative has been informed of the [...] Course has been c/b pulmonary embolus (on AC),PJP pneumonia, herpes zoster. She received treatment with Keytruda per Dr. Abimael Hernandez (completed 05/01/22 - after 38 cycles). Imaging in July 2022 demonstrated a complete remission and is now under surveillance per Dr. Ledezma. PET/CT since that time have remained without evidence of disease. Palliative care is following for symptom control needs. June 2024: patient diagnosed with NSTEMI at [facility] s/p cardiac cath with drug eluting stent placed in LAC for 99% occlusion. Following with [facility] cardiology Subjective At last visit we discussed [...] OF SYSTEMS: Review of Systems Modified ESAS ([place] Symptom Assessment Scale) Information Provided By: Patient [...] been APPROPRIATELY filled. No suspiciousactivity was identified. 11/02/2024 by Irene Han APRN.TRAINING AND DEVELOPMENT DIRECTOR Urine Screen Lab Results Component Value Date [...] Quant, Urine <25 07/30/2024 EDDP Quant, Urine <03/07/2023 EDDP Quant, Urine <02/24/2021 Tramadol Quant, Urine <25 03/07/2023 Tramadol Quant, Urine <25 02/24/2021 Desmethyltramadol Quant, Urine <20 03/07/2023 Desmethyltramadol Quant, Urine <20 02/24/2021 O-Desmethyltramadol Quant, Urine <25 07/30/2024 Fentanyl Quant, Urine <07/30/2024 Fentanyl Quant, Urine <03/07/2023 Fentanyl Quant, Urine <02/24/2021 Norfentanyl Quant, Urine <07/30/2024 Norfentanyl Quant, Urine <03/07/2023 Norfentanyl Quant, Urine <02/24/2021 Codeine Quant, Urine <07/30/2024 Codeine Quant, Urine <03/07/2023 Codeine Quant, Urine <02/24/2021 Morphine Quant, Urine <25 07/30/2024 Morphine Quant, Urine <03/07/2023 Morphine Quant, Urine <02/24/2021 Dihydrocodeine Quant, Urine <03/07/2023 Dihydrocodeine Quant, Urine <5 02/24/2021 Hydrocodone Quant, [...] Urine pH, Pain Ocasio 6.3 02/24/2021 Specific [place],Ur Pain Ocasio 1.012 02/24/2021 Oxidants,Ur 46 02/24/2021 Specimen Quality, Ur Pain Ocasio Specimen quality results within acceptable limits. 05/03/2014 Assessment & Plan (Z51.5) Encounter for palliative care (primary encounter diagnosis) - reviewed role of palliative care, contact info, and reasons to call. 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 - current AC: asa 81 mg, Plavix and Xarelto - ECHO showing mildly reduced LVEF 40-45% (repeat in in 10/2024 back up to 55%) - cardiology: Dr Hdz ([facility]) - continue with cardiac rehab (started 07/27/24) [...] need to be set up at [facility]. She tabled this topic while working on [...] opioids completely. However, in trying to do sopreviously she has had escalating pain despite other adjuvant medication attempts. Celso will discuss with her PCP whether she [...] Mood is slowly improving. Less anxiety with stress.Could not tolerate dose titration of lexapro - [...] may have been partially generated using the [employer] voice recognition system. While every effort was made to correct voice recognition errors, kindly be aware that some errors may occasionally occur. documented in this encounterSelect [facility]-2025 Telephone encounter Note * Telephone Encounter - Carlo Bautista LPN - 11/02/2024 8:43 AM EDT [facility] 05/12/24 NOV needs to be scheduled Requested Prescriptions Pending Prescriptions Disp Refills ANORO ELLIPTA 62.5-25 mcg/actuation inhaler [Pharmacy Med Name: ANORO ELLIPTA 62.5-25 MCG INH] 60 each 1 Sig: INHALE 1 PUFF ONCE DAILY DIRECTED [facility]09-15-2025 Miscellaneous Notes* Telephone Encounter - Carlo Bautista LPN - 11/02/2024 8:43 AM EDT [facility] 05/12/24 NOV needs to be scheduled Requested Prescriptions Pending Prescriptions Disp Refills ANORO ELLIPTA 62.5-25 mcg/actuation inhaler [Pharmacy Med Name: ANORO ELLIPTA 62.5-25 MCG INH] 60 each 1 Sig: INHALE 1 PUFF ONCE DAILY DIRECTED documented in this encounterSelect Medical [facility]-2025 Telephone encounter Note * Telephone Encounter - Flori Cartagena RN - 10/30/2024 8:15 AM EDT Please see my chart message about appointment next week. Please advise. Thank you, HAMZAH Tolliver, [facility] Parole Agent [facility]09-12-2025 Miscellaneous Notes* Telephone Encounter - Flori Cartagena RN - 10/30/2024 8:15 AM EDT Please see my chart message about appointment next week. Please advise. Thank you, HAMZAH Tolliver, [facility] Parole Agent documented in this encounterSelect Medical [facility]-2025 Telephone encounter Note * Telephone Encounter - Irene Han APRN.CNP - 10/27/2024 2:31 PM EDT PDMP website checked and validated. All prescriptions have been APPROPRIATELY filled. No suspiciousactivity was identified. 10/27/2024 by Irene Han APRN.TRAINING AND DEVELOPMENT DIRECTOR Rx sent Irene Han APRN.CNP [facility]09-09-2025 Miscellaneous Notes* Telephone Encounter - Irene Han APRN.CNP - 10/27/2024 2:31 PM EDT PDMP website checked and validated. All prescriptions have been APPROPRIATELY filled. No suspiciousactivity was identified. 10/27/2024 by Irene Han APRN.TRAINING AND DEVELOPMENT DIRECTOR Rx sent Irene Han APRN.TRAINING AND DEVELOPMENT DIRECTOR * Telephone Encounter - Kylie Mosher RN - 10/27/2024 10:57 AM EDT Patient requesting refills as follows: Last ordered 09/28/2024. Next scheduled follow up appointment 11/02/2024. Requested Prescriptions Pending Prescriptions Disp Refills oxyCODONE IR (ROXICODONE) 10 mg tab 90 tablet 0 Sig: Take 1 tablet by mouth every 8 hours as needed for pain for up to 30 days. Kylie Mosher RN October 27, 2024 documented in this encounterSelect [facility] Telephone encounter Note * Telephone Encounter - Kylie Mosher RN - 10/27/2024 10:57 AM EDT Patient requesting refills as follows: Last ordered 09/28/2024. Next scheduled follow up appointment 11/02/2024. Requested Prescriptions Pending Prescriptions Disp Refills oxyCODONE IR (ROXICODONE) 10 mg tab 90 tablet 0 Sig: Take 1 tablet by mouth every 8 hours as needed for pain for up to 30 days. Kylie Mosher RN October 27, 2024 [facility]08-11-2025 Telephone encounter Note* Telephone Encounter - Kaia Mandujano MA - 09/28/2024 3:01 PM EDT Mychart message request from patient for attached. [facility] [id number] Miscellaneous Notes* Telephone Encounter - Kaia Mandujano MA - 09/28/2024 3:01 PM EDT [employer] message request from patient for attached. documented in this encounterOzarks Community HospitalOcnrnumbem75-23-7394 Telephone encounter Note* Telephone Encounter - Kristina Pete RN - 09/28/2024 2:50 PM EDT Last appointment 07/30 Last ordered: 08/28 (30 days) The following prescription(s) will be transmitted electronically to [facility] upon approval. Patient has been notified. Requested Prescriptions Pending Prescriptions Disp Refills oxyCODONE IR (ROXICODONE) 10 mg tab 90 tablet 0 Sig: Take 1 tablet by mouth every 8 hours as needed for pain for up to 30 days. [facility]08-11-2025 Miscellaneous Notes* Telephone Encounter - Kristina Pete RN - 09/28/2024 2:50 PM EDT Last appointment 07/30 Last ordered: 08/28 (30 days) The following prescription(s) will be transmitted electronically to [facility] upon approval. Patient has been notified. Requested Prescriptions Pending Prescriptions Disp Refills oxyCODONE IR (ROXICODONE) 10 mg tab 90 tablet 0 Sig: Take 1 tablet by mouth every 8 hours as needed for pain for up to 30 days. documented in this encounterSelect Medical [facility]07-28-2025 History of Present illness Narrative* Bee Vail MD - 09/14/2024 11:00 AM EDT Images from the original note [...] TOPICALLY IN THE MORNING AND AT BEDTIME 60g 0 gabapentin (Neurontin) 300 MG capsule Take [...] 4 (four) times a day as needed foranxiety 120 tablet 2 metoprolol succinate XL (Toprol-XL) [...] mouth as needed at bedtime for sleep 90tablet 3 [DISCONTINUED] aspirin 81 MG EC tablet [...] a continued fpc basis to monitor and treatthe above listed problems as well as their other chronic illnesses as part of a longitudinal care plan documented in this encounterOzarks Community [id number] History of Present illness Narrative* Cristine Sharma NP - 09/09/2024 10:20 AM EDT Reason for Appointment: Patient ID: Celso Weller is a 44 y.o. female who presents for No chief complaint on file. Patient presents today via telephone call for a telehealth appointment. Patients Phone #: [phone] (mobile) Date: 09/09/2024 Time: 1:10 PM of [...] Active Ambulatory Problems Diagnosis Date Noted Asthma ([facility]) 08/13/2022 Acquired hypothyroidism 08/23/2022 Anxiety 08/23/2022 Gastroesophageal reflux disease 08/23/2022 Hodgkin lymphoma (HCC) 08/23/2022 Insomnia 08/23/2022 Major depressive disorder, single episode, mild 08/23/2022 Mild intermittent asthma ([facility]) 08/23/2022 Psoriasis 08/23/2022 Restrictive lung disease 08/23/2022 Tachycardia 08/23/2022 Vitamin D deficiency 08/23/2022 Voice hoarseness 08/23/2022 Neuropathy 06/03/2023 Chronic prescription benzodiazepine use 10/10/2023 Palliative care status 04/01/2024 Acute systolic heart failure (HCC) 07/21/2024 NSTEMI (non-ST elevated myocardial infarction) ([facility]) 07/21/2024 Hx of pulmonary embolus 07/21/2024 Inappropriate sinus tachycardia (HCC) 07/21/2024 Mixed hyperlipidemia 07/21/2024 Resolved Ambulatory Problems [...] of: Cristine Sharma NP documented in this encounterOzarks Community [id number] Telephone encounter Note* Telephone Encounter - Carlo Bautista LPN - 08/31/2024 9:09 AM EDT [facility] 05/12/24 Follow up in 4 weeks NOV Needs to be scheduled Requested Prescriptions Pending Prescriptions Disp Refills ANORO ELLIPTA 62.5-25 mcg/actuation inhaler [Pharmacy Med Name: ANORO ELLIPTA 62.5-25 MCG INH] 60 each 1 Sig: INHALE 1 PUFF ONCE DAILY DIRECTED [facility]07-14-2025 Miscellaneous Notes* Telephone Encounter - Carlo Bautista LPN - 08/31/2024 9:09 AM EDT [facility] 05/12/24 Follow up in 4 weeks NOV Needs to be scheduled Requested Prescriptions Pending Prescriptions Disp Refills ANORO ELLIPTA 62.5-25 mcg/actuation inhaler [Pharmacy Med Name: ANORO ELLIPTA 62.5-25 MCG INH] 60 each 1 Sig: INHALE 1 PUFF ONCE DAILY DIRECTED documented in this encounterSelect Medical [facility]06-26-2025 Telephone encounter Note * Telephone Encounter - Sheila Lin NP - 08/13/2024 7:13 AM EDT [facility] reviewed Rx sent [facility] [id number] Miscellaneous Notes* Telephone Encounter - Sheila Lin NP - 08/13/2024 7:13 AM EDT [facility] reviewed Rx sent documented in this encounterOzarks Community [id number] History of Present illness Narrative* Cristine Sharma NP - 08/12/2024 10:00 AM EDT Reason for Appointment: Patient ID: Celso Weller [...] Active Ambulatory Problems Diagnosis Date Noted Asthma ([facility]) 08/13/2022 Acquired hypothyroidism 08/23/2022 Anxiety 08/23/2022 Gastroesophageal reflux disease 08/23/2022 Hodgkin lymphoma ([facility]) 08/23/2022 Insomnia 08/23/2022 Major depressive disorder, single episode, mild 08/23/2022 Mild intermittent asthma ([facility]) 08/23/2022 Psoriasis 08/23/2022 Restrictive lung disease 08/23/2022 Tachycardia 08/23/2022 Vitamin D deficiency 08/23/2022 Voice hoarseness 08/23/2022 Neuropathy 06/03/2023 Chronic prescription benzodiazepine use 10/10/2023 Palliative care status 04/01/2024 Acute systolic heart failure ([facility]) 07/21/2024 NSTEMI (non-ST elevated myocardial infarction) ([facility]) 07/21/2024 Hx of pulmonary embolus 07/21/2024 Inappropriate sinus tachycardia ([facility]) 07/21/2024 Mixed hyperlipidemia 07/21/2024 Resolved Ambulatory Problems [...] disease) History of pulmonary embolism Hodgkin lymphoma ([facility]) 08/23/2022 Menopause Neuropathy NSTEMI (non-ST elevated myocardial infarction) ([facility]) 07/21/2024 Social History Tobacco Use Smoking status: [...] nursing note reviewed. Exam conducted with a labor law professor present. Vitals: Estimated body mass index is [...] of: Cristine Sharma NP documented in this encounterOzarks Community [id number] Instructions* Patient Instructions* Irene Han APRN.TRAINING AND DEVELOPMENT DIRECTOR - 07/30/2024 10:22 AM EDT - Cymbalta can go up to 60 mg if you don't feel pain is well controlled in the next 1-2 months. - Other options for pain: - Celebrex: would suggest getting clearance from your planning division superintendent about this - compounded pain cream from [facility]. I can send a prescription if you are interested in trying this. documented in this encounterSelect Medical [facility]06-12-2025 History of Present illness Narrative* Irene Han APRN.CNP - 07/30/2024 10:00 AM EDT PALLIATIVE MEDICINE PROGRESS NOTE SERVICE DATE: 07/30/2024 [...] Course has been c/b pulmonary embolus (on AC),PJP pneumonia, herpes zoster. She received treatment with [...] chest pain. Work up showed NSTEMI and sheunderwent cardiac cath and drug eluting stent placed in LAC for 99% occlusion. Developed hemoptysiswhen started on Xarelto, this was held. ECHO showing mildly reduced LVEF 40-45% Had f/u with cardiology at [facility] on 07/20/24 - added spirinolactone for short [...] No confusion, oversedation, myoclonus, constipation. Modified ESAS ([place] Symptom Assessment Scale) Information Provided By: Patient [...] been APPROPRIATELY filled. No suspiciousactivity was identified. 07/30/2024 by Irene Han APRN.TRAINING AND DEVELOPMENT DIRECTOR Urine Screen Lab Results Component Value Date [...] Urine pH, Pain Ocasio 6.3 02/24/2021 Specific [place],Ur Pain Ocasio 1.012 02/24/2021 Oxidants,Ur 46 02/24/2021 Specimen Quality, Ur Pain Ocasio Specimen quality results within acceptable limits. 05/03/2014 Assessment & Plan (Z51.5) Encounter for palliative care (primary encounter diagnosis) - reviewed role of palliative care, contact info, and reasons to call. 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 - current AC: asa 81 mg, Plavix and Xarelto - ECHO showing mildly reduced LVEF 40-45% (plan to repeat in 3 months) - cardiology: Dr Hdz ([facility]) - continue with cardiac rehab (started 07/27/24) [...] need to be set up at [facility]. 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 Less anxiety with stress.Could not tolerate dose titration of lexapro - Cymbalta and Ativan per PCP Medical Decision Making: Problems: Moderate: 2+ stable chronic illnesses Risk: High: Drug therapy requiring intensive monitoring Medical Decision Making Level: 4 - Moderate Some elements copied from my note on 04/23/24, the elements have been updated and all reflect currentdecision making from today, 07/30/2024. Next Visit: 3 Months via a virtual visit Irene Han APRN.PEDRO July 30, 2024 8:03 AM This note may have been partially generated using the [employer] voice recognition system. While every effort was made to correct voice recognition errors, kindly be aware that some errors may occasionally occur. documented in this encounterSelect Medical [facility]06-12-2025 History of Present illness Narrative* Ruperto Ledezma MD - 07/30/2024 7:46 AM EDT PATIENT NAME: Celso Weller DATE: 08/03/2024 PRIMARY CARE PHYSICIAN: Bee Vail MD OTHER PHYSICIANS: Dr. Cyn Hernandez; Dr. Gurpreet Unger; Irene Han CNP ([facility] Pall Med), Dr. Jane Del Valle ([facility] Rad Onc), Dr. Jani Becerril ([facility] Pulmonary), Dr Rahda Gamez ([facility] Dermatology), Dr. Temo Hdz ([facility] [place]) Portions of this encounter note have been copied from the note from 05/04/2024 and has been updated where appropriate, and reflect my current medical decision making from today. CC: This is a 44 year old female with recurrent Hodgkin's disease, seen for scheduled follow-up. INTERIM HISTORY: Since the patient's last visit here she apparently suffered an acute RI on 07/05/2024. She was hospitalized at [facility] in [place]. She underwent stent placement x 2 which [...] Menorrhagia 04/02/2017 NSTEMI (non-ST elevated myocardial infarction) ([facility]) 07/30/2024 PE (pulmonary embolism) Found incidentally on [...] FDG avid neoplastic process. 04/02/2023 Chest x-ray ([facility]) Airspace opacities in the medial lungs [...] mid abdominal pain, and was found to haveprogressive disease in the right mesenteric area. She received palliative radiation therapy to her abdomen 04/02/2022 through 04/06/2022. She last received pembrolizumab on 05/01/2022. Follow-up PET scans have remained negative, most recently 12/11/2023. At this time will continue close observation. Labs and restaging PET scan November 2024, then returnfor follow-up. 2. Autologous bone marrow transplantation status [...] PCP. 9. Heart disease Status post acute RI 07/05/2024. Status post coronary artery stent placement x 2 at [facility]. Currently stable. Continue management per PCP/cardiology. 10. Chronic fatigue, anxiety and depression The patient has a long history of chronic fatigue, most likely related to her underlying disease, extensive prior treatment, and multiple medications. As a result she has secondary anxiety and depression. Continue management per PCP/[facility] palliative medicine. Ruperto Ledezma MD documented in this encounterSelect Medical [facility]06-11-2025 Telephone encounter Note * Telephone Encounter - Irene Han APRN.CNP - 07/29/2024 2:51 PM EDT PDMP website checked and validated. All prescriptions have been APPROPRIATELY filled. No suspiciousactivity was identified. 07/29/2024 by Irene Han APRN.TRAINING AND DEVELOPMENT DIRECTOR Rx sent Irene Han APRN.TRAINING AND DEVELOPMENT DIRECTOR [facility]06-11-2025 Miscellaneous Notes* Telephone Encounter - Irene Han APRN.PEDRO - 07/29/2024 2:51 PM EDT PDMP website checked and validated. All prescriptions have been APPROPRIATELY filled. No suspiciousactivity was identified. 07/29/2024 by Irene Han APRN.TRAINING AND DEVELOPMENT DIRECTOR Rx sent Irene Han APRN.TRAINING AND DEVELOPMENT DIRECTOR * Telephone Encounter - Kylie Mosher RN - 07/29/2024 8:35 AM EDT Patient requesting refills as follows: Last ordered 06/25/2024. Next scheduled follow up appointment 07/30/2024. Requested Prescriptions Pending Prescriptions Disp Refills oxyCODONE IR (ROXICODONE) 10 mg tab 90 tablet 0 Sig: Take 1 tablet by mouth every 8 hours as needed for pain for up to 30 days. Kylie Mosher RN July 29, 2024 documented in this encounterSelect Medical [facility]06-[facility]-2025 Telephone encounter Note * Telephone Encounter - Kylie Mosher RN - 07/29/2024 8:35 AM EDT Patient requesting refills as follows: Last ordered 06/25/2024. Next scheduled follow up appointment 07/30/2024. Requested Prescriptions Pending Prescriptions Disp Refills oxyCODONE IR (ROXICODONE) 10 mg tab 90 tablet 0 Sig: Take 1 tablet by mouth every 8 hours as needed for pain for up to 30 days. Kylie Mosher RN July 29, 2024 [facility]06-[facility]-2025 History of Present illness Narrative* Bee Vail MD - 07/21/2024 1:40 PM EDT Images from the original note were not included. Subjective Patient ID: Celso Weller is a 44 y.o. female who presents for Hospital Follow-up. Hospital follow-up Hospital [facility] Date of admission 07/06/24 Date of discharge [...] the above history who was admitted from [facility] due to concern for NSTEMI. Patient had [...] concern for diffuse alveolar hemorrhage. The patient remain ed on baseline oxygen requirements. The patient was [...] at some point in the future. She wasdischarged home in good condition on 07/09. Reviewed all of the above with patient Items to follow up in ambulatory setting: Follow-up serial CBCs and Hematology recommendations for Xarelto Follow-up with: Cardiology, Hematology/Oncology, and Pulmonary Scheduled appointments: Future Appointments Date Time Provider Department Center 07/20/2024 10:45 AM Temo Hdz MD CARD [facility] 07/21/2024 11:30 AM Stephanie Tyler PA-C [facility] CARD [place] [facility] Reviewed above with pt Has seen Cards Echo EF 45% CAD status post recent myocardial infarction and drug-eluting stenting of the LAD: I reviewed the coronary angiogram images with her. She has multivessel atherosclerotic disease with most significantresidual disease in the first obtuse marginal branch [...] lipid panel in 1 month and adjust therapyas needed. 4. Inappropriate sinus tachycardia: This is a chronic condition for her. I explained to her that now that she has heart failure status post myocardial infarction I would like to target as low heart rate as possible. Her blood pressure is borderline at 99 systolic and she would not tolerate additionof higher dose of metoprolol succinate. I am [...] were rought With the stress and tension [place] better and better each day Starts cardiac [...] 4 (four) times a day as needed foranxiety 120 tablet 2 metoprolol succinate XL (Toprol-XL) [...] mouth as needed at bedtime for sleep 90tablet 3 [DISCONTINUED] atenolol (Tenormin) 50 MG tablet TAKE 1 TABLET BY MOUTH TWICE A DAY (Patient not taking: Reported on 07/15/2024) 180 tablet 3 [DISCONTINUED] rivaroxaban (Xarelto) 10 MG tablet Take 1 tablet (10 mg) by mouth Daily (Patient nottaking: Reported on 07/15/2024) 90 tablet 3 No [...] a continued fpc basis to monitor and treatthe above listed problems as well as their other chronic illnesses as part of a longitudinal care plan documented in this encounterOzarks Community [id number] NoteUT Cardiology - [facility] Subjective Celso Weller is a [...] pulmonary hypertension and valvular regurgitation at the [facility] but right heart catheterization that was performed in February 2024 did not show any significant pulmonary hypertension and her filling pressures were normal. She was transferred from the [facility] on 07/06/2024 due to NSTEMI. She was [...] is no abdominal ten (more content not included)...[facility]05-22-2025 NoteHospital Medicine Discharge Summary Final Discharge Diagnosis: Principal [...] the above history who was admitted from [facility] due to concern for NSTEMI. Patient had [...] Admission: Cardiology, Neurology, and Pulmonary Dear MD Vail Abby is advised to follow up with you within 1-2 weeks. Items to follow up in ambulatory setting: Follow-up serial CBCs and Hematology recommendations for Xarelto Follow-up with: Cardiology, Hematology/Oncology, and Pulmonary Scheduled appointments: Future Appointments Date Time Provider Department Center 07/20/2024 10:45 AM Temo Hdz MD CARD [facility] 07/21/2024 11:30 AM Stephanie Tyler PA-C [facility] CARD [place] [facility] Your medication list [...] Signed Tony Flanagan MD (more content not included)...[facility]05-22-2025 Note - MRI/MRA negative - neurology consulted, appreciate recommendationsUnPremier Health [facility]05-22-2025 Note- follow-up with cardiology and pulmonology outpatient -Mild pulmonary hypertension mPAP 22, PVR 1.74 morillo, pcwp 4, CO 7.48 L/min based on RHC at [facility] 02/2024 multifactorial in the setting of history of PE, mediastinal radiation and post radiation fibrosis, bronchiectasis [facility]05-22-2025 Note- continue 2 L nasal cannula [facility]05-22-2025 Note- Pending CTA to determine if Xarelto can be resumedUnPremier Health [facility]05-22-2025 Note- Albuterol prnUnPremier Health [facility]05-22-2025 Note-AC currently on hold in setting of hemoptysisUnPremier Health [facility]05-22-2025 Note- Continue Toprol 100 mg daily -Hold lisinopril as blood pressure is soft.[facility] 07-09-2024 Note-s/p multiple rounds chemoradiation with multiple radiation related complications including restrictive lung disease, pneumonitis, recurrent pneumonia, and neuropathyC[facility]05-22-2025 Note-S/p DESx2 to LAD -Continue aspirin, PlavixUnPremier Health [facility]05-22-2025 Note Attestation signed by Jeff Reeder MD [...] tenderness of any extremity. Jeff Reeder MD [facility] Pulmonary interventional and Critical Care Medicine. Pulmonology Progress Patient : Celso Weller; 43 y.o. Location: [id number] Attending: Tony Flanagan MD Admit Date: 07/06/2024 [...] CO 7.48 L/min based [facility] R[facility] 02/2024 multifactorial in the setting of history [...] No Lack of Transp (more content not included)...[facility] 07-09-2024 NoteCardiology Inpatient Progress Note Subjective Reason for consult: [...] murmurs, rubs, or gallops. (more content not included)...[facility]05-22-[address] [facility] Neu[facility] Progress Note: Interval Hx: Patient [...] team and coordination of care. Darlene Sorto MDCleveland Clinic [facility] Hospital05-22-2025 NoteHospital Medicine Daily Progress Note - 07/09/2024 7:25 AM; Room: [address] [place] [address] Admission: 07/06/2024 6:00 AM; Length of stay: 3 days THE HOSPITALIST TEAM PREFERS TO USE [employer] CHAT FOR NON-URGENT COMMUNICATION 7AM-7PM. IF I DO NOT RESPOND WITHIN 20 MINUTES OR URGENT MATTERS, PLEASE CALL THROUGH THE COLLAR STARCHER. FROM 7PM-7AM, PLEASE PAGE [phone](COVR). Code Status: Full Code Barriers to Discharge: [...] Intake/Output Summary (Last 24 hours) at 07/09/2024 0725 Last data filed at 07/08/2024 2320 Gross [...] & Plan NSTEMI (non-ST elevated myocardial infarction) ([facility]) -S/p DESx2 to LAD -Continue aspirin, Plavix Primary hypertension -Continue Toprol 100 mg daily -Hold lisinopril as blood pressure is soft. Nodular lymphocyte predominant Hodgkin lymphoma ([facility]/HCC) -s/p multiple rounds chemoradiation with multiple radiation related complications including restrictive lung disease, pneumonitis, recurrent pneumonia, and neuropathy History of pulmonary embolism -AC currently on hold in setting of hemoptysis Uncomplicated asthma -Albuterol prn Hemoptysis - Pending CTA to determine if Xarelto can be resumed Chronic hypoxic respiratory failure ([facility]) - continue 2 L nasal cannula Pulmonary hypertension ([facility]) - follow-up with cardiology and pulmonology outpatient -Mild pulmonary hypertension mPAP 22, PVR 1.74 morillo, pcwp 4, CO 7.48 L/min based on RHC at [facility] 02/2024 multifactorial in the setting of history [...] LDL 168 07/06/2024 No results found for: [id number] , IRON , TIBC , C3 , [...] vertebral and basilar a (more content not included)...[facility]05-21-2025 NoteThis is likely secondary to restrictive lung disease, bronchiectasis and postradiation lung fibrosis Patient uses 2 to 3 L nasal cannula oxygen at baseline Continue supplemental oxygenation to maintain oxygen saturation above 92%. [facility]05-21-2025 NoteS/p DESx2 to LAD Continue aspirin, PlavixUnPremier Health [facility]05-21-2025 NoteMild pulmonary hypertension mPAP 22, PVR 1.74 morillo, pcwp 4, CO 7.48 L/min based on RHC at [facility] 02/2024 multifactorial in the setting of history of PE, mediastinal radiation and post radiation fibrosis, bronchiectasisUnPremier Health [facility]05-21-2025 NotePatient reported hemoptysis this morning. Hold Xarelto, discontinue heparin infusion due to ongoing hemoptysis. Hemoglobin is stable.[facility]05-21-2025 NoteContinue Toprol 100 mg daily Hold lisinopril as blood pressure is soft.[facility] 07-08-2024 NoteContinue albuterol as neededUnPremier Health [facility] 07-08-2024 NoteCT head 07/07 concerning for intracranial hypertension Neurology consulted. MRI is pending.[facility] 07-08-2024 Notes/p multiple rounds chemoradiation with multiple radiation related complications including restrictive lung disease, pneumonitis, recurrent pneumonia, and neuropathyUnPremier Health [facility]05-21-2025 NoteHold Xarelto, discontinue heparin infusion Discussed with pulmonary, patient will follow-up with hematology outpatient regarding resuming XareltoUnPremier Health [facility]05-21-2025 Note Hospital Medicine Daily Progress Note - 07/08/2024 12:06 PM; Room: [address] [place] [address] Admission: 07/06/2024 6:00 AM; Length of stay: 2 days THE HOSPITALIST TEAM PREFERS TO USE [employer] FOR NON-URGENT COMMUNICATION 7AM-7PM. IF I DO NOT RESPOND WITHIN 20 MINUTES OR URGENT MATTERS, PLEASE CALL THROUGH THE COLLAR STARCHER. FROM 7PM-7AM, PLEASE PAGE [phone](COVR). Code Status: Full Code Barriers to Discharge: [...] CO 7.48 L/min based on RHC at [facility] 02/2024 multifactorial in the setting of history [...] LDL 168 07/06/2024 No results found for: [id number] , IRON , TIBC , C3 , C4 , CAL , CANCA , ASO , PS (more content not included)...[facility] 07-08-[address] [facility] Consultation Note Chief Complaint and reason for Consultation: Headache HPI: Celso Weller is a 43 y.o. year old female patient for whom Neurology was consulted for chief complaint of headache. History obtained from patient. She has pmh hodgkin's lymphoma s/p multiple rounds chemoradiation,, with [...] Cymbalta for pain. She has been given Seminole for pain, which did not help significantly. [...] mg, 2.5 mg, nebulization, q6h PRN, Jhonny Saldivar MD, 2.5 mg at 07/06/24 1700 aspirin EC tablet 81 mg, 81 mg, oral, Daily, Rock Kadivar, 81 mg at 07/08/24 1043 cholecalciferol (Vitamin D-3) tablet 1,000 Units, 1,000 Units, oral, Daily, Jhonny Saldivar MD, 1,000 Units at 07/08/24 1043 clopidogrel (Plavix) tablet 75 mg, 75 mg, oral, Daily, Rock Kadivar, 75 mg at 07/08/24 1043 cyclobenzaprine (Flexeril) tablet 10 mg, 10 mg, oral, q8h PRN, Jhonny Saldivar MD, 10 mg at 07/07/24 1233 DULoxetine (Cymbalta) DR capsule 30 mg, 30 mg, oral, Nightly, Jhonny Saldivar MD, 30 mg at 07/07/24 2132 gabapentin (Neurontin) capsule 600 mg, 600 mg, oral, TID, Jhonny Saldivar MD, 600 mg at 07/08/24 1043 [Held by provider] heparin infusion 100 units/mL in D5W, 0-28 Units/kg/hr, intravenous, Continuous, Last Rate: 16.1 mL/hr at 07/08/24 0938, 15 Units/kg/hr at 07/08/24 0938 AND [Held by provider] heparin (porcine) injection 2,700 Units, 25 Units/kg, intravenous, q6h PRN, Liz Valdez MD levothyroxine (Synthroid, Levoxyl) tablet 75 mcg, 75 mcg, oral, Daily before breakfast, Jhonny Saldivar MD, 75 mcg at 07/08/24 0631 lisinopril tablet 5 mg, 5 mg, oral, Daily, Rock Kadivar, 5 mg at 07/07/24 1453 LORazepam (Ativan) tablet 0.5 mg, 0.5 mg, oral, 4x daily PRN, Jhonny Saldivar MD, 0.5 mg at 07/08/24 0411 metoprolol succinate XL (Toprol-XL) 24 hr tablet 100 mg, 100 mg, oral, Daily, Rock Kadivar, 100 mg at 07/08/24 1045 morphine injection 2 mg, 2 mg, intravenous, q4h PRN, Jhonny Saldivar MD, 2 mg at 07/06/24 1728 ondansetron ODT (Zofran-ODT) disintegrating tablet 4 mg, 4 mg, oral, q8h PRN OR ondansetron HCl (PF) (Zofran) injection 4 mg, 4 mg, intravenous, q6h PRN, Jan Kelly MD oxyCODONE (Roxicodone) immediate release tablet 10 mg, 10 mg, oral, q8h PRN, Jhonny Saldivar MD, 10 mg at 07/08/24 0814 pantoprazole (ProtoNix) EC tablet 40 mg, 40 mg, oral, Nightly, Jhonny Saldivar MD, 40 mg at 07/07/24 2133 [Held by provider] rivaroxaban (Xarelto) tablet 10 mg, 10 mg, oral, Daily with evening meal, Liz Valdez MD rosuvastatin (Crestor) tablet 20 mg, 20 mg, oral, Daily, Rock Kadivar, 20 mg at 07/08/24 1044 sennosides-docusate sodium (Dina-Colace) 8.6-50 mg per tablet 1 tablet, 1 tablet, oral, BID PRN, Jan Kelly MD sodium chloride (Bethel) 0.65 % nasal spray 1 spray, 1 spray, Each Nostril, PRN, Liz Valdez MD umeclidinium-vilanteroL (Anoro Ellipta) 62.5-25 mcg/actuation inhaler 1 puff, 1 puff, inhalation, Daily, Jhonny Saldivar MD, 1 puff at 07/08/24 1043 Physical [...] knowledge appropriate Ophthalmological Examination: (more content not included)...[facility]05-21-2025 NoteCardiology Inpatient Progress Note Subjective Reason for consult: [...] abnormal pulsations. Regular ra (more content not included)...[facility]05-21-2025 Note Attestation signed by Melissa Glover MD [...] depending on her progress. Melissa Glover MD [facility] Pulmonary interventional and Critical Care Medicine . Pulmonology Progress Patient : Celso Weller; 43 y.o. Location: [id number] Attending: Liz Valdez MD Admit Date: 07/06/2024 [...] rare Stenotrophomonas maltophilia. Most recent PFT From [facility] records 12/2023 Most recent Echo 07/06 TTE [...] CO 7.48 L/min based on RHC at [facility] 02/2024 multifactorial in the setting of history [...] on asa and plavix (more content not included)...[facility]05-20-2025 NoteContinue lisinopril 5 mg daily, Toprol 100 mg dailyUnPremier Health [facility] 07-07-2024 NotePatient reported hemoptysis this morning. Hold Xarelto, continue heparin infusionUnPremier Health [facility]05-20-2025 Notes/p multiple rounds chemoradiation with multiple radiation related complications including restrictive lung disease, pneumonitis, recurrent pneumonia, and neuropathyUnPrem[facility]05-20-2025 NoteS/p DESx2 to LAD Continue aspirin, PlavixUnPremier Health [facility]05-20-2025 Note Continue albuterol as neededUnPremier [facility]05-20-2025 Note Mild pulmonary hypertension mPAP 22, PVR 1.74 morillo, pcwp 4, CO 7.48 L/min based on RHC at [facility] 02/2024 multifactorial in the setting of history of PE, mediastinal radiation and post radiation fibrosis, bronchiectasisUnPremier Health [facility]05-20-2025 NoteThis is likely secondary to restrictive lung disease, bronchiectasis and postradiation lung fibrosis Patient uses 2 to 3 L nasal cannula oxygen at baseline Continue supplemental oxygenation to maintain oxygen saturation above 92%. [facility]05-20-2025 NoteHold Xarelto, continue heparin infusion Discussed with pulmonary CT chest pendingUnPremier Health [facility]05-20-2025 NoteHospital Medicine Daily Progress Note - 07/07/2024 4:27 PM; Room: [facility]- Admission: 07/06/2024 6:00 AM; Length of stay: 1 days THE HOSPITALIST TEAM PREFERS TO USE [employer] FOR NON-URGENT COMMUNICATION 7AM-7PM. IF I DO NOT RESPOND WITHIN 20 MINUTES OR URGENT MATTERS, PLEASE CALL THROUGH THE COLLAR STARCHER. FROM 7PM-7AM, PLEASE PAGE [phone](COVR). Code Status: Full Code Barriers to Discharge: [...] CO 7.48 L/min based on RHC at [facility] 02/2024 multifactorial in the setting of history [...] LDL 168 07/06/2024 No results found for: [id number] , IRON , TIBC , C3 , [...] hemidiaphragm. Impression: Pulmonary vas (more content not included)...[facility]05-20-2025 Note07/07/24 1046 Admission Assessment Questions Verify insurance with [...] Status Interested Does the patient have a corrections caseworker assigned to them through their insurance? No [...] you able to send link and activate MyChart? MyChart already active [facility]05-20-2025 Note Attestation signed by Anil Sweet MD [...] Value Ventricular Rate 106 Atrial Rate 106 NM Interval 162 QRS DURATION 100 QT Interval 336 QTC CALCULATION(BAZETT) 446 P Perryman 54 R-Perryman -27 T Wave Perryman 8 Impression Sinus tachycardia Minimal voltage criteria for LVH, may be normal variant ( [place] product ) Cannot rule out Anterior infarct [...] Bubble Study Result Date: 07/06/2024 1 1 [facility] Heart Station [address] [place] [address] [phone] (fax) Echocardiogram-[facility] Name: CELSO WELLER Study Date: 07/06/2024 03:45 PM B/P: 94 mmHg/68 mmHg HR: 103 bpm Date of : 1980 Location: [facility] Height: 72 in. Age: 43 year(s) Patient [...] ASE 66.8 g/m?? (44g (more content not included)...[facility]05-19-2025 NotePatient: Celso Weller Procedure Information Date/Time: 07/06/24 1200 Procedure: Coronary angiography Location: [facility] BRANCH SERVICES MANAGER 2 BIPLANE / [facility] (Cath) Providers: Sherly Dang MD [...] discussed with fellow and attending. Additional Equipment RequestsUnPremier Health [facility]05-19-2025 Note H&P reviewed. The patient was examined and there are no changes to the H&P. Will proceed with coronary angiogram for further assessment. Procedure's details, risks and benefits discussed with the patient and she's agreeable.[facility]05-19-2025 NoteStableUnPremier Health [facility]05-19-2025 NoteBronchodilatorsUnPrem[facility]05-19-2025 NotePatient was started on IV heparin cardiology saw patient who planned to do left heart cath will followUnPremier Health [facility]05-19-2025 Note Currently on IV heparin resume DOAC post procedureUnPrem[facility]05-19-2025 NoteMetoprololUnPremier Health [facility]05-19-2025 NotePain control and as aboveUnPremier [facility]05-19-2025 Note Hospital Medicine History and Physical 07/06/2024 11:19 AM THE HOSPITALIST TEAM PREFERS TO USE [employer] CHAT FOR NON-URGENT COMMUNICATION 7AM-7PM. IF I DO NOT RESPOND WITHIN 20 MINUTES OR URGENT MATTERS, PLEASE CALL THROUGH THE COLLAR STARCHER. FROM 7PM-7AM, PLEASE PAGE [phone](COVR). Chief Complaint No chief complaint on file. History of Present Illness Celso Weller is an 43 y.o. female accepted from [facility] past medical history of Hodgkin lymphoma diagnosed [...] lung disease from radiation and recurrent pneumonia. Resource Specialist Teacher was consulted who plan to take patient [...] & Plan NSTEMI (non-ST elevated myocardial infarction) (CMS/HCC) Patient was started on IV heparin cardiology [...] this hospital stay by a member of [facility]. Past Medical History History reviewed. No [...] No Transportation Needs ( (more content not included)...[facility]05-08-2025 Telephone encounter Note* Telephone Encounter - Irene Han APRN.CNP - 06/25/2024 5:47 PM EDT PDMP website checked and validated. All prescriptions have been APPROPRIATELY filled. No suspiciousactivity was identified. 06/25/2024 by Irene Han APRN.TRAINING AND DEVELOPMENT DIRECTOR Rx sent Irene Han APRN.TRAINING AND DEVELOPMENT DIRECTOR [facility]05-08-2025 Miscellaneous Notes* Telephone Encounter - Irene Han APRN.CNP - 06/25/2024 5:47 PM EDT PDMP website checked and validated. All prescriptions have been APPROPRIATELY filled. No suspiciousactivity was identified. 06/25/2024 by Irene Han APRN.TRAINING AND DEVELOPMENT DIRECTOR Rx sent Irene Han APRN.TRAINING AND DEVELOPMENT DIRECTOR * Telephone Encounter - Kristina Pete RN - 06/25/2024 4:53 PM EDT Last ordered: 05/29 (30 days) Last appointment 04/23 The following prescription(s) will be transmitted electronically to [facility] upon approval. Patient has been notified. Requested Prescriptions Pending Prescriptions Disp Refills oxyCODONE IR (ROXICODONE) 10 mg tab 90 tablet 0 Sig: Take 1 tablet by mouth every 8 hours as needed for pain for up to 30 days. Future Appointments Date Time Provider Department [place] 07/29/2024 1:30 PM 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 APRN.PEDRO [place] [facility] 07/30/2024 10:00 AM [facility] [place] [facility] 08/03/2024 9:45 AM LAB ADAM [facility] 08/03/2024 10:00 AM Ruperto Ledezma MD [place] documented in this encounterSelect [facility]05-[facility]-2025 Telephone encounter Note * Telephone Encounter - Kristina Pete RN - 06/25/2024 4:53 PM EDT Last ordered: 05/29 (30 days) Last appointment 04/23 The following prescription(s) will be transmitted electronically to [facility] upon approval. Patient has been notified. Requested Prescriptions Pending Prescriptions Disp Refills oxyCODONE IR (ROXICODONE) 10 mg tab 90 tablet 0 Sig: Take 1 tablet by mouth every 8 hours as needed for pain for up to 30 days. Future Appointments Date Time Provider Department [place] 07/29/2024 1:30 PM 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 APRN.PEDRO [place] [facility] 07/30/2024 10:00 AM Irene Han APRN.PEDRO [place]ALMarianne QiuCold [place] [facility] 08/03/2024 9:45 AM LAB ADAM ARTIS MELINDA [facility] 08/03/2024 10:00 AM Ruperto Ledezma MD [place] [facility]05-07-2025 Telephone encounter Note* Telephone Encounter - Danielle Dumont - 06/24/2024 11:04 AM EDT Follow up scheduled. [facility]05-07-2025 Miscellaneous Notes* Telephone Encounter - Danielle Dumont - 06/24/2024 11:04 AM EDT Follow up scheduled. * Telephone Encounter - Carlo Bautista LPN - 06/24/2024 8:23 AM EDT KENN 05/12/24 ([facility]) NOV needs to be scheduled Requested Prescriptions Pending Prescriptions Disp Refills ANORO ELLIPTA 62.5-25 mcg/actuation inhaler [Pharmacy Med Name: ANORO ELLIPTA 62.5-25 MCG INH] 60 each 1 Sig: INHALE 1 INHALATION INSTRUCTED ONCE DAILY. documented in this encounterSelect Medical [facility]05-[facility]-2025 Telephone encounter Note * Telephone Encounter - Carlo Bautista LPN - 06/24/2024 8:23 AM EDT KENN 05/12/24 ([facility]) NOV needs to be scheduled Requested Prescriptions Pending Prescriptions Disp Refills ANORO ELLIPTA 62.5-25 mcg/actuation inhaler [Pharmacy Med Name: ANORO ELLIPTA 62.5-25 MCG INH] 60 each 1 Sig: INHALE 1 INHALATION INSTRUCTED ONCE DAILY. [facility]04-22-2025 Telephone encounter Note* Telephone Encounter - Mitzi Han MA - 06/09/2024 5:17 PM EDT Chart notes from 01/21/2024 faxed over to [facility] with confirmation. [place] [address]-22-2025 Miscellaneous Notes* Telephone Encounter - Mitzi Han MA - 06/09/2024 5:17 PM EDT Chart notes from 01/21/2024 faxed over to [facility] with confirmation. * Telephone Encounter - 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 APRN.CNP - 06/09/2024 8:39 AM EDT I placed the order for the CPAP on behalf of Dr. Mora who saw her for PH so will need to send his notes as well. * Telephone Encounter - Mitzi Han MA - 06/04/2024 11:05 AM EDT Will forward encounter to provider in regard to noting BRIAN in her chart notes as I do not see any previous pulmonary notes regarding the pt's BRIAN. * Telephone Encounter - Valeria Garg - 06/04/2024 10:50 AM EDT Falguni from [facility] is calling 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 APRN.CNP today to request office notes prior to the sleep study. Stated she received the 05.12.24 notes, but doesn't mention anything regarding the BRIAN. Please advise. Fax number: [phone] Patient has been identified by name and birthdate. Duration of symptoms: N/A Person calling: Falguni Call Falguni at: [phone] Was an appointment scheduled: No Closing statement: Results or non-symptom based questions: Thank you for calling [facility], your call will be returned within the next business day. Thank you, Valeria Garg documented in this encounterSelect Medical [facility]04-22-2025 Miscellaneous Notes* Telephone Encounter - Nadir Rowan LPN - 06/09/2024 11:05 AM EDT Faxed neb supply order to [facility] w/ confirmation via epic. * Telephone Encounter - Nadir Rowan LPN - 06/09/2024 9:[address] BREWER office visit notes to [facility] via [employer]. Called [facility] to get fax number ([phone]) Pended neb supply order. documented in this encounterSelect Medical [facility]04-22-2025 Telephone encounter Note * Telephone Encounter - Nadir Rowan LPN - 06/09/2024 11:05 AM EDT Faxed neb supply order to [facility] w/ confirmation via epic. [facility]04-22-2025 Telephone encounter Note* Telephone Encounter - Nadir Rowan LPN - 06/09/2024 9:[address] BREWER office visit notes to [facility] via [employer]. Called [facility] to get fax number ([phone]) Pended neb supply order. [facility]04-22-2025 Telephone encounter Note* Telephone Encounter - 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 APRN.TRAINING AND DEVELOPMENT DIRECTOR - 06/09/2024 8:39 AM EDT I placed the order for the CPAP on behalf of Dr. Mora who saw her for so will need to send his notes as well. [facility]04-21-2025 History of Present illness Narrative* Sheila Lin, NUCLEAR POWERPLANT MECHANIC - 06/08/2024 8:00 AM EDT Images from the original note [...] really helping Mentioned this to palliative care NUCLEAR POWERPLANT MECHANIC Takes ativan daily at least Insomnia On [...] 4 (four) times a day as needed foranxiety 120 tablet 2 oxyCODONE (Roxicodone) 10 MG [...] BY MOUTH NEEDED AT BEDTIME FOR SLEEP 90tablet 1 No current facility-administered medications on file [...] to 20 mg Talked to palliative care NUCLEAR POWERPLANT MECHANIC - suggested trial of cymbalta Will transition [...] a continued fpc basis to monitor and treatthe above listed problems as well as their other chronic illnesses as part of a longitudinal care plan documented in this encounterOzarks Community [id number] Telephone encounter Note* Telephone Encounter - Mitzi Han MA - 06/04/2024 11:05 AM EDT Will forward encounter to provider in regard to noting BRIAN in her chart notes as I do not see any previous pulmonary notes regarding the pt's BRIAN. [facility]04-17-2025 Telephone encounter Note* Telephone Encounter - Valeria Garg - 06/04/2024 10:50 AM EDT Falguni from [facility] is calling 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 APRN.CNP today to request office notes prior to the sleep study. Stated she received the 05.12.24 notes, but doesn't mention anything regarding the BRIAN. Please advise. Fax number: [phone] Patient has been identified by name and birthdate. Duration of symptoms: N/A Person calling: Falguni Montes De Oca at: [phone] Was an appointment scheduled: No Closing statement: Results or non-symptom based questions: Thank you for calling [facility], your call will be returned within the next business day. Thank you, Valeria Garg [facility]04-17-2025 Telephone encounter Note* Telephone Encounter - Mitzi Han MA - 06/04/2024 7:52 AM EDT Images from the original note were not included. Pt's cpap /pap supply order, demographics, most recent chart notes, and most recent PFTs faxed to the pt's DME with confirmation. Pt notified via [employer] to contact their DME to check on the status of their order. [facility]04-17-2025 Miscellaneous Notes* Telephone Encounter - Mitzi Han MA - 06/04/2024 7:52 AM EDT Images from the original note were not included. Pt's cpap /pap supply order, demographics, most recent chart notes, and most recent PFTs faxed to the pt's DME with confirmation. Pt notified via [employer] to contact their DME to check on the status of their order. documented in this encounterSelect Medical [facility]04-11-2025 History of Present illness Narrative* Bee Singleton RT(R) - 05/29/2024 8:30 AM EDT Radiology Service Progress Note PATIENT [...] Assigned female at . status: : No status:NO. PATIENT RELEVANT IMPLANT DATA REVIEWED: Not Applicable PATIENT PRESENTS WITH AN IMPLANTABLE OR ATTACHED CARCASS TRIMMER: No RADIOLOGY DEPARTMENT: General X-ray: Exam(s) Completed: Chest X-Ray PERIPHERAL IV DATA: Not applicable SIGNED BY: RT Anaya(R) May 29, 2024 8:56 AM documented in this encounterSelect Medical [facility]04-02-2025 Telephone encounter Note * Telephone Encounter - Mitzi Han MA - 05/20/2024 5:27 PM EDT Pt's cpap /bipap order, demographics, most recent chart notes, and most recent PFTs faxed to the pt's DME with confirmation. Pt notified via [employer] to contact their DME to check on the status of their order. [facility]04-02-2025 Miscellaneous Notes* Telephone Encounter - Mitzi Han MA - 05/20/2024 5:27 PM EDT Pt's cpap /bipap order, demographics, most recent chart notes, and most recent PFTs faxed to the pt's DME with confirmation. Pt notified via [employer] to contact their DME to check on the status of their order. * Addendum Note - 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 APRN.TRAINING AND DEVELOPMENT DIRECTOR - 05/20/2024 1:12 PM EDTAddended by: KYLIE MILLER on: 05/20/2024 01:12 PM Modules accepted: Orders * Telephone Encounter - 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 APRN.CNP - 05/20/2024 1:08 PM EDT Please send CPAP to the company that she currently gets her O2 from documented in this encounterSelect Medical [facility]04-02-2025 Note* Addendum Note - 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 APRN.CNP - 05/20/2024 1:12 PM EDTAddended by: KYLIE MILLER on: 05/20/2024 01:12 PM Modules accepted: Orders [facility]04-02-2025 Telephone encounter Note* Telephone Encounter - 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 APRN.CNP - 05/20/2024 1:08 PM EDT Please send CPAP to the company that she currently gets her O2 from [facility]03-25-2025 History of Present illness Narrative* 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 APRN.CNP - 05/12/2024 8:20 AM EDT Images from the original note were not included. [facility] DEPARTMENT OF PULMONARY MEDICINE ESTABLISHED PATIENT OFFICE VISIT May 12, 2024 My final reccommendations will be communicated back to the requesting physician by way of shared medical record or US mail. The patient consented to the use of Cloud[employer] software for draft documentation of the visit consistent with [facility] s Notice of Privacy Practices. ASSESSMENT/PLAN: 1. [...] or chills. Electronically signed by 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 APRN.[facility] May 12, 2024 8:46 AM Time Spent: [...] She mentioned increased fatigue, orthopnea, and overall feelingunwell. They did a CXR and this showed a new moderate effusion on the left. She was given a steroid dose pack and noted remarkable improvement in symptoms with this treatment. She mentioned concerns to Dr. Becerril, at which time imaging was reviewed. An [...] 10/14/2013 12/21/2013 03/11/2014 Haemophilus influenzae b-meningococcal bivalent (Ppb-DdlEW-VK) vaccine (MENHIBRIX) 10/14/2013 diphtheria tetanus (DT) vaccine, [...] Collected: 01/15/2024 9:13 AM (Final result) Narrative: [facility] [address] [address] [place] [address] Test Date: 2024-01-15 Pat Name: CELSO WELLER Department: Room: Gender: Female Professional Nursing Assistant: : 1980 Requested By: Order Number: [id number] Reading MD: Maxi Valdez MD Interpretive Statements [...] 14:32:54 EST by Maxi Valdez MD ID: [id number] Name: CELSO WELLER Race: White Ht: 70.87 [...] 3.59 FEF50/FIF50 0.88 90-100 FIVC (L) 2.07 QME70-80 (L/sec) 2.02 2.16 3.60 5.34 56 Time [...] 81 83 FEV1/FVC POST (%) % 84 VEL39-43% PRE (L/S) L/S 1.76 2.02 TYZ45-51% POST (L/S) L/S 2.24 PEF PRE (L/S) [...] VUONG MD... Recent Results (from the past 49985 hours) ECHO Collection Time: 01/08/24 8:01 AM [...] 2024 This note was partially generated using [employer] voice recognition system, and there may be some incorrect words, spellings, and punctuation that were not noted in checking the note before saving. documented in this encounterSelect Medical [facility] History of Present illness Narrative* Michelle Drew RDMS - 05/08/2024 8:00 PM EDT Radiology Service Progress Note PATIENT [...] PATIENT PRESENTS WITH AN IMPLANTABLE OR ATTACHED CARCASS TRIMMER: No RADIOLOGY DEPARTMENT: Ultrasound PERIPHERAL IV DATA: Not applicable SIGNED BY: Michelle Drew RDMS May 08, 2024 8:05 PM documented in this encounterSelect Medical [facility]03-21-2025 NoteHNO ID: [id number] Author: MICHELLE DREW RDMS Service: ? Author [...] PATIENT PRESENTS WITH AN IMPLANTABLE OR ATTACHED CARCASS TRIMMER: No RADIOLOGY DEPARTMENT: Ultrasound PERIPHERAL IV DATA: Not applicable SIGNED BY: Michelle Drew RDMS May 08, 2024 8:05 [id number] Telephone encounter Note* Telephone Encounter - Jani Becerril MD - 05/07/2024 3:46 PM EDT Pls schedule USG chest on day of visit with [facility] on 05/12 to assess the fluid status Thanks Jani Becerril MD [facility]03-20-2025 Miscellaneous Notes* Telephone Encounter - Jani Becerril MD - 05/07/2024 3:46 PM EDT Pls schedule USG chest on day of visit with KHOI on 05/12 to assess the fluid status Thanks Jani Becerril MD * Telephone Encounter - Nadir Rowan LPN - 05/06/2024 9:24 AM EDT Thanks for letting me know Pls let [...] need to be seen urgently Thanks Jani Becerril MD Called and spoke with pt, passed along Dr. Watson message above (from other phone encounter). Pt verbalized understanding. Pt stated after starting medrol pack breathing has been quite good. Due to pt living over an hour away she declined [facility] visit. Pt stated if symptoms get worst she would come to [place] [facility]. Pt wanted to know if Dr. Becerril wanted any further imaging, or when should next imaging be scheduled.Will route to Dr. Becerril. * Telephone Encounter - Estefanía Bertrand - 05/05/2024 4:31 PM EDT Patient calling in as instructed below but she does not know why she needs an appointment. Please call patient to advise documented in this encounterSelect Medical [facility]03-19-2025 Telephone encounter Note * Telephone Encounter - Nadir Rowan LPN - 05/06/2024 9:24 AM EDT Thanks for letting me know Pls let [...] need to be seen urgently Thanks Jani Becerril MD Called and spoke with pt, passed along Dr. Watson message above (from other phone encounter). Pt verbalized understanding. Pt stated after starting medrol pack breathing has been quite good. Due to pt living over an hour away she declined [facility] visit. Pt stated if symptoms get worst she would come to [place] [facility]. Pt wanted to know if Dr. Becerril wanted any further imaging, or when should next imaging be scheduled.Will route to Dr. Becerril. [facility]03-18-2025 Telephone encounter Note* Telephone Encounter - Estefanía Bertrand - 05/05/2024 4:31 PM EDT Patient calling in as instructed below but she does not know why she needs an appointment. Please call patient to advise [facility]03-17-2025 Telephone encounter Note* Telephone Encounter - Nadir Rowan LPN - 05/04/2024 2:43 PM EDT Called and spoke with pt. Pt reported [...] pt on medrol pack. Pt wanted Dr. Becerril's opinion on plan of care. Will route to provider. [facility]03-17-2025 Miscellaneous Notes* Telephone Encounter - Nadir Rowan LPN - 05/04/2024 2:43 PM EDT Called and spoke with pt. Pt reported [...] pt on medrol pack. Pt wanted Dr. Becerril's opinion on plan of care. Will route to provider. * Telephone Encounter - Nadir Rowan LPN - 05/04/2024 10:07 AM EDT Called and LVMx1 for pt. Instructed pt to call us back. Was hoping to triage pt and see how she wasfeeling over weekend. documented in this encounterSelect Medical [facility]03-17-2025 Telephone encounter Note * Telephone Encounter - Jeny Nava RN - 05/04/2024 11:52 AM EDT Pt informed of BRM message, once verified, using 2 patient identifiers. Patient agrees to notify client service administrator and denies any questions, needs or concerns at this time. Appointment verified. Jeny Nava RN [facility]03-17-2025 Miscellaneous Notes* Telephone Encounter - Jeny Nava RN - 05/04/2024 11:52 AM EDT Pt informed of BRM message, once verified, using 2 patient identifiers. Patient agrees to notify client service administrator and denies any questions, needs or concerns at this time. Appointment verified. Jeny Nava, RN documented in this encounterSelect Medical [facility]03-17-2025 History of Present illness Narrative* Bee Singleton RT(R) - 05/04/2024 10:30 AM EDT Radiology Service Progress Note PATIENT [...] Assigned female at . status: : No status:NO. PATIENT RELEVANT IMPLANT DATA REVIEWED: Not Applicable PATIENT PRESENTS WITH AN IMPLANTABLE OR ATTACHED CARCASS TRIMMER: No RADIOLOGY DEPARTMENT: General X-ray: Exam(s) Completed: Chest X-Ray PERIPHERAL IV DATA: Not applicable SIGNED BY: RT Anaya(R) May 04, 2024 10:48 AM documented in this encounterSelect Medical [facility]03-17-2025 Telephone encounter Note * Telephone Encounter - Nadir Rowan LPN - 05/04/2024 10:07 AM EDT Called and LVMx1 for pt. Instructed pt to call us back. Was hoping to triage pt and see how she wasfeeling over weekend. [facility]03-16-2025 History of Present illness Narrative* Ruperto Ledezma MD - 05/03/2024 6:22 PM EDT PATIENT NAME: Celso Weller DATE: 05/04/2024 PRIMARY CARE PHYSICIAN: Bee Vail MD OTHER PHYSICIANS: Dr. Cyn Hernandez; Dr. Gurpreet Unger; Irene Han CNP ([facility] Pall Med), Dr. Jane Del Valle ([facility] Rad Onc), Dr. Jani Becerril ([facility] Pulmonary), Dr Radha Gamez ([facility] Dermatology) Portions of this encounter note [...] February 2024 and was briefly hospitalized at [facility]. She initially improved with antibiotics, but since thenhas had intermittent cough. Over the past week or so she has noticed increasing shortness of breathand her cough is now productive of thick [...] C No.3 (B COMPLEX PLUS VITAMIN C) 49-98-35-5-300 mg cap Take 1 tablet by mouth [...] FDG avid neoplastic process. 04/02/2023 Chest x-ray ([facility]) Airspace opacities in the medial lungs [...] mid abdominal pain, and was found to haveprogressive disease in the right mesenteric area. She received palliative radiation therapy to her abdomen 04/02/2022 through 04/06/2022. She last received pembrolizumab on 05/01/2022. Follow-up PET scans have remained negative, most recently 12/11/2023. At this time will continue close observation. Return in 3 months for follow-up and labs. Unless newsymptoms develop will restage again with a PET [...] left pleural effusion. She will contact her client service administrator for follow-up. 4. History of pulmonary embolism [...] medicine. Ruperto Ledezma MD documented in this encounterSelect Medical [facility]03-14-2025 Telephone encounter Note * Telephone Encounter - Ellyn Lopez APRN.CNP - 05/01/2024 1:52 PM EDT Keep as scheduled. Ellyn Manuel APRN.CNP [facility] Work Phone: [phone] Miscellaneous Notes* Telephone Encounter - Ellyn Lopez APRN.CNP - 05/01/2024 1:52 PM EDT Keep as scheduled. Ellyn Manuel APRN.TRAINING AND DEVELOPMENT DIRECTOR * Telephone Encounter - Gillian Morrison MA - 05/01/2024 1:24 PM EDT Patient cancelled her appointment for PET Scan and has not rescheduled. Patient has appointment with brm on Saturday for follow up pet and labs. Should we reschedule? documented in this encounterSelect Medical [facility]03-14-2025 Telephone encounter Note * Telephone Encounter - Gillian Morrison MA - 05/01/2024 1:24 PM EDT Patient cancelled her appointment for PET Scan and has not rescheduled. Patient has appointment with brm on Saturday for follow up pet and labs. Should we reschedule? [facility]03-07-2025 Telephone encounter Note* Telephone Encounter - Kathryn Purvis - 04/24/2024 9:00 AM EST PET scan has been cancelled. Kathryn Purvis [facility]03-07-2025 Miscellaneous Notes* Telephone Encounter - Kathryn Purvis - 04/24/2024 9:00 AM EST PET scan has been cancelled. Kathryn Purvis * Telephone Encounter - Ruperto Ledezma MD - 04/23/2024 3:27 PM EST Please cancel patient's PET scan scheduled for this month. I will see her as scheduled for her appointment. documented in this encounterSelect Medical [facility]03-06-2025 Telephone encounter Note * Telephone Encounter - Ruperto Ledezma MD - 04/23/2024 3:27 PM EST Please cancel patient's PET scan scheduled for this month. I will see her as scheduled for her appointment. [facility] Work Phone: [phone] History of Present illness Narrative* Irene Han, LORY.TRAINING AND DEVELOPMENT DIRECTOR - 04/23/2024 2:00 PM EST PALLIATIVE MEDICINE PROGRESS NOTE SERVICE DATE: 04/23/2024 [...] Course has been c/b pulmonary embolus (on AC),PJP pneumonia, herpes zoster. She received treatment with [...] Doesn't feel excited about anything. Modified ESAS ([place] Symptom Assessment Scale) Information Provided By: Patient [...] been APPROPRIATELY filled. No suspiciousactivity was identified. 04/23/2024 by Irene Han APRN.TRAINING AND DEVELOPMENT DIRECTOR Urine Screen Lab Results Component Value Date [...] Urine pH, Pain Ocasio 6.3 02/24/2021 Specific [place],Ur Pain Ocasio 1.012 02/24/2021 [place],Ur 46 02/24/2021 [...] would need to be set up at [facility]. 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 Next Visit: 3 Months in person Irene Han APRN.TRAINING AND DEVELOPMENT DIRECTOR April 23, 2024 1:02 PM This note may have been partially generated using the [employer] voice recognition system. While every effort was made to correct voice recognition errors, kindly be aware that some errors may occasionally occur. documented in this encounterSelect Medical [facility]03-03-2025 Telephone encounter Note * Telephone Encounter - Carlo Medellin MA - 04/20/2024 10:09 AM ESTSummary: Appointment Confirmation Called patient to confirm her iCPET with Dr. Lopez on 04/29 at 1pm. No answer, left . Carlo Medellin Clinical Professional Nursing Assistant [facility]03-03-2025 Miscellaneous Notes* Telephone Encounter - Carlo Medellin MA - 04/20/2024 10:09 AM ESTSummary: Appointment Confirmation Called patient to confirm her iCPET with Dr. Lopez on 04/29 at 1pm. No answer, left VM. Carlo Medellin Clinical Professional Nursing Assistant [facility] documented in this encounterSelect Medical [facility]03-03-2025 Telephone encounter Note * Telephone Encounter - Carlo Bautista LPN - 04/20/2024 8:47 AM EST KENN 01/21/24 NOV Needs to be scheduled Requested Prescriptions Pending Prescriptions Disp Refills ANORO ELLIPTA 62.5-25 mcg/actuation inhaler [Pharmacy Med Name: ANORO ELLIPTA 62.5-25 MCG INH] 60 Each 1 Sig: INHALE 1 INHALATION INSTRUCTED ONCE DAILY. [facility]03-03-2025 Miscellaneous Notes* Telephone Encounter - Carlo Bautista LPN - 04/20/2024 8:47 AM EST KENN 01/21/24 NOV Needs to be scheduled Requested Prescriptions Pending Prescriptions Disp Refills ANORO ELLIPTA 62.5-25 mcg/actuation inhaler [Pharmacy Med Name: ANORO ELLIPTA 62.5-25 MCG INH] 60 Each 1 Sig: INHALE 1 INHALATION INSTRUCTED ONCE DAILY. documented in this encounterSelect Medical [facility]02-24-2025 Telephone encounter Note * Telephone Encounter - Mitzi Han MA - 04/13/2024 10:35 AM EST Pt called and made aware that Kylie approved handicap placard script. Pt's address verified and she is made aware that it could take up to 5-7 business days to receive handicap placard order via mail. Pt verbalized understating with no further questions. Pt's handicap placard script placed in mail agent to be mailed to pt's home address listed on file. [facility]02-24-2025 Miscellaneous Notes* Telephone Encounter - Mitzi Han MA - 04/13/2024 10:35 AM EST Pt called and made aware that Kylie approved handicap placard script. Pt's address verified and she is made aware that it could take up to 5-7 business days to receive handicap placard order via mail. Pt verbalized understating with no further questions. Pt's handicap placard script placed in mail agent to be mailed to pt's home address listed on file. documented in this encounterSelect Medical [facility]02-19-2025 History of Present illness Narrative* Gabrielle Zepeda MD - 04/08/2024 9:00 AM EST Celso Weller returns to the office today and notes that she had pneumonia last month and went to the hospital. She had fever at that time. She has 02/09 pneumococcal subtiters protective. She had recent CXR at [facility] and was inpatient for one night on [...] chronic rhinitis - nasal ipratropium [facility] [place]. I explained that no allergen avoidance measures are necessary and we agreed to try nasal ipratropium for her chronic rhinitis. Pneumonia - I provided reassurance regarding her normal immunologic evaluation and suggested she follow up in the [facility] for further discussion of her recurrent episodes of pneumonia. Follow-up is arranged on an as needed basis. documented in this encounterOzarks Community [id number] Miscellaneous Notes* Telephone Encounter - Kylie Mosher RN - 04/07/2024 9:38 AM EST Pharmacy requesting refills as follows: Last ordered 01/14/2024. Next scheduled follow up appointment 04/23/2024. Requested Prescriptions Pending Prescriptions Disp Refills cyclobenzaprine (FLEXERIL) 10 mg tablet [Pharmacy Med Name: CYCLOBENZAPRINE 10 MG TABLET] 90 tablet2 Sig: TAKE 1 TABLET BY MOUTH THREE TIMES A DAY NEEDED FOR MUSCLE SPASM Kylie Mosher RN April 07, 2024 documented in this encounterSelect Medical [facility]02-18-2025 Telephone encounter Note * Telephone Encounter - Kylie Mosher RN - 04/07/2024 9:38 AM EST Pharmacy requesting refills as follows: Last ordered 01/14/2024. Next scheduled follow up appointment 04/23/2024. Requested Prescriptions Pending Prescriptions Disp Refills cyclobenzaprine (FLEXERIL) 10 mg tablet [Pharmacy Med Name: CYCLOBENZAPRINE 10 MG TABLET] 90 tablet2 Sig: TAKE 1 TABLET BY MOUTH THREE TIMES A DAY NEEDED FOR MUSCLE SPASM Kylie Mosher RN April 07, 2024 [facility]02-17-2025 Telephone encounter Note* Telephone Encounter - Edilma Song RN - 04/06/2024 2:54 PM EST Please sign pended PET scan scheduled for 04/27/2024 Thank You! Edilma Song RN [facility]02-17-2025 Miscellaneous Notes* Telephone Encounter - Edilma Song RN - 04/06/2024 2:54 PM EST Please sign pended PET scan scheduled for 04/27/2024 Thank You! Edilma Song RN documented in this encounterSelect Medical [facility]02-13-2025 Telephone encounter Note * Telephone Encounter - Irene Han APRN.CNP - 04/02/2024 3:40 PM EST PDMP website checked and validated. All prescriptions have been APPROPRIATELY filled. No suspiciousactivity was identified. 04/02/2024 by Irene Han APRN.TRAINING AND DEVELOPMENT DIRECTOR Rx sent Irene Han APRN.TRAINING AND DEVELOPMENT DIRECTOR [facility]02-13-2025 Miscellaneous Notes* Telephone Encounter - Irene Han APRN.CNP - 04/02/2024 3:40 PM EST PDMP website checked and validated. All prescriptions have been APPROPRIATELY filled. No suspiciousactivity was identified. 04/02/2024 by Irene Han APRN.TRAINING AND DEVELOPMENT DIRECTOR Rx sent Irene Han APRN.TRAINING AND DEVELOPMENT DIRECTOR * Telephone Encounter - Kylie Mosher RN - 04/02/2024 12:59 PM EST Patient Mycharts requesting refills as follows: Last ordered 03/05/2024. Next scheduled follow up appointment 04/23/2024. Requested Prescriptions Pending Prescriptions Disp Refills oxyCODONE IR (ROXICODONE) 10 mg tab 90 tablet 0 Sig: Take 1 tablet by mouth every 8 hours as needed for pain for up to 30 days. Kylie Mosher RN April 02, 2024 documented in this encounterSelect Medical [facility]02-13-2025 Telephone encounter Note * Telephone Encounter - Kylie Mosher RN - 04/02/2024 12:59 PM EST Patient Mycharts requesting refills as follows: Last ordered 03/05/2024. Next scheduled follow up appointment 04/23/2024. Requested Prescriptions Pending Prescriptions Disp Refills oxyCODONE IR (ROXICODONE) 10 mg tab 90 tablet 0 Sig: Take 1 tablet by mouth every 8 hours as needed for pain for up to 30 days. Kylie Mosher RN April 02, 2024 [facility]02-12-2025 Miscellaneous Notes* Telephone Encounter - Renetta Cuellar MA - 04/01/2024 1:40 PM EST REPLACEMENT NEBULIZER DEVICE Nebulizer and supply given in office through [facility]. Patient given instructions on how to use and care for the nebulizer. [facility] with [facility] issues or concerns regarding their [facility]. Patient verbalized understanding with no further questions. I faxed purchase agreement to [facility] as followed: - replacement written on new purchase agreement form - old device SN #: [id number] written on form - attached copy of previous purchase agreement from 04/19/2023 - attached Demographics/ Insurance information * Telephone Encounter - Renetta Cuellar MA - 03/25/2024 2:52 PM EST Patient was provided a nebulizer on 04/19/2023 at [facility] by Carole Ruano. documented in this encounterSelect Medical [facility]02-12-2025 Telephone encounter Note * Telephone Encounter - Renetta Cuellar MA - 04/01/2024 1:40 PM EST REPLACEMENT NEBULIZER DEVICE Nebulizer and supply given in office through [facility]. Patient given instructions on how to use and care for the nebulizer. [facility] with any issues or concerns regarding their nebulizer. Patient verbalized understanding with no further questions. I faxed purchase agreement to [facility] doctors as followed: - replacement written on new purchase agreement form - old device SN #: [id number] written on form - attached copy of previous purchase agreement from 04/19/2023 - attached Demographics/ Insurance information [facility]02-05-2025 Telephone encounter Note* Telephone Encounter - Renetta Cuellar MA - 03/25/2024 2:52 PM EST Patient was provided a nebulizer on 04/19/2023 at [facility] by Carole Ruano. [facility]01-27-2025 Telephone encounter Note* Telephone Encounter - Carlo Medellin MA - 03/16/2024 2:14 PM ESTSummary: Care Coordination Called patient to schedule her iCPET for 04/29/[address] Lopez. Carlo Medellin Clinical Professional Nursing Assistant [facility]01-27-2025 Miscellaneous Notes* Telephone Encounter - Carlo Medellin MA - 03/16/2024 2:14 PM ESTSummary: Care Coordination Called patient to schedule her iCPET for 04/29/[address] Lopez. Carlo Medellin Clinical Professional Nursing Assistant [facility] documented in this encounterSelect Medical [facility]01-24-2025 Telephone encounter Note * Telephone Encounter - Sheila Lin NP - 03/13/2024 1:18 PM EST [id number] Miscellaneous Notes* Telephone Encounter - Sheila Lin NP - 03/13/2024 1:18 PM EST Rx sent documented in this encounterOzarks Community [id number] History of Present illness Narrative* Sheila Lin NP - 03/11/2024 8:00 AM EST Images from the original note were not [...] antihistamine , no flonase +mucinex Admitted to [facility] for Acute respiratory failure with hypoxia [...] 4 (four) times a day as needed foranxiety 120 tablet 2 oxyCODONE (Roxicodone) 10 MG [...] BY MOUTH NEEDED AT BEDTIME FOR SLEEP 90tablet 1 No current facility-administered medications on file [...] disturbance. Negative for suicidal ideas. The patient isnervous/anxious. Visit Vitals BP 92/68 (BP Location: Right [...] a continued fpc basis to monitor and treatthe above listed problems as well as their other chronic illnesses as part of a longitudinal care plan documented in this [facility]01-22-2025 Instructions* Patient Instructions* Sheila Lin NP - 03/11/2024 8:00 AM EST Add Flonase nasal spray daily for PND/sinuses Increase lexapro to 20 mg (can take 15mg 1-1/2 tab for a week or so first to gradually increase) documented in this [facility]01-16-2025 Miscellaneous Notes* Telephone Encounter - Irene Han APRN.CNP - 03/05/2024 10:48 AM EST PDMP website checked and validated. All prescriptions have been APPROPRIATELY filled. No suspiciousactivity was identified. 03/05/2024 by Irene Han APRN.TRAINING AND DEVELOPMENT DIRECTOR Rx sent Irene Han APRN.TRAINING AND DEVELOPMENT DIRECTOR * Telephone Encounter - Kylie Mosher RN - 03/05/2024 7:20 AM EST Patient requesting refills as follows: Last ordered 02/11/2024. Next scheduled follow up appointment 04/23/2024. Requested Prescriptions Pending Prescriptions Disp Refills oxyCODONE IR (ROXICODONE) 10 mg tab 90 tablet 0 Sig: Take 1 tablet by mouth every 8 hours as needed for pain for up to 30 days. Kylie Mosher RN March 05, 2024 documented in this encounterSelect Medical [facility]-2025 Telephone encounter Note * Telephone Encounter - Irene Han APRN.PEDRO - 03/05/2024 10:48 AM EST PDMP website checked and validated. All prescriptions have been APPROPRIATELY filled. No suspiciousactivity was identified. 03/05/2024 by Irene Han APRN.TRAINING AND DEVELOPMENT DIRECTOR Rx sent Irene Han APRN.TRAINING AND DEVELOPMENT DIRECTOR [facility]01-16-2025 Telephone encounter Note* Telephone Encounter - Kylie Mosher RN - 03/05/2024 7:20 AM EST Patient requesting refills as follows: Last ordered 02/11/2024. Next scheduled follow up appointment 04/23/2024. Requested Prescriptions Pending Prescriptions Disp Refills oxyCODONE IR (ROXICODONE) 10 mg tab 90 tablet 0 Sig: Take 1 tablet by mouth every 8 hours as needed for pain for up to 30 days. Kylie Mosher RN March 05, 2024 [facility]01-09-2025 History of Present illness Narrative* Irene Han APRN.TRAINING AND DEVELOPMENT DIRECTOR - 02/27/2024 2:19 PM EST PALLIATIVE MEDICINE PROGRESS NOTE SERVICE DATE: 02/27/[address] Virtually; I have communicated my name and active licensure. The patient's identity and physical location were verified at the time of this visit. The patient or their legal graphic art sales representative has been informed of the risks and benefits of -- and alternatives to -- treatment through a remote evaluation and consents to proceed with the evaluation remotely. CHIEF COMPLAINT: follow up PERTINENT MEDICAL HISTORY: Celso Weller is a 43 yo female with a history of psoriatic arthritis and Hodgkin's Lymphoma diagnosed 01/16/2012 s/p autologous SCT (2013) and several other treatments dueto recurrences in that time. She has undergone [...] PET/CT in 01/2023 and 05/2023 remained without evide nce of disease. Palliative care is following for [...] confusion, oversedation, myoclonus. No constipation. Modified ESAS ([place] Symptom Assessment Scale) Information Provided By: Patient [...] been APPROPRIATELY filled. No suspiciousactivity was identified. 02/27/2024 by Irene Han APRN.TRAINING AND DEVELOPMENT DIRECTOR Urine Screen Lab Results Component Value Date [...] Urine pH, Pain Ocasio 6.3 02/24/2021 Specific [place],Ur Pain Ocasio 1.012 02/24/2021 [place],Ur 46 02/24/2021 [...] would need to be set up at [facility]. 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 While every effort was made to correct voice recognition errors, kindly be aware that some errors may occasionally occur. documented in this encounter[facility] Telephone encounter Note * Telephone Encounter - Sarah Rojas - 02/27/2024 8:55 AM EST Did reschedule appointment to a virtual appointment. And sent patient a MyChart message. Sarah Rojas February 27, 2024 8:55 AM [facility]01-09-2025 Miscellaneous Notes* Telephone Encounter - Sarah Rojas - 02/27/2024 8:55 AM EST Did reschedule appointment to a virtual appointment. And sent patient a MyChart message. Sarah Rojas February 27, 2024 8:55 AM documented in this encounterSelect [facility] Telephone encounter Note * Telephone Encounter - Carlo Bautista LPN - 02/24/2024 1:43 PM EST Prescription filled 02/24/24. Closing this note [facility]01-06-2025 Miscellaneous Notes* Telephone Encounter - Carlo Bautista LPN - 02/24/2024 1:43 PM EST Prescription filled 02/24/24. Closing this note * Telephone Encounter - Mitzi Han MA - 02/24/2024 7:30 AM EST Last OV: 01/21/2024 No f/u appt noted Patient phones requesting refills as follows: Requested Prescriptions Pending Prescriptions Disp Refills ANORO ELLIPTA 62.5-25 mcg/actuation inhaler [Pharmacy Med Name: ANORO ELLIPTA 62.5-25 MCG INH] 60 Each 1 Sig: INHALE 1 INHALATION INSTRUCTED ONCE DAILY. Please review and advise. Mitzi Han MA documented in this encounterSelect [facility] Telephone encounter Note * Telephone Encounter - Mitzi Han MA - 02/24/2024 7:30 AM EST Last OV: 01/21/2024 No f/u appt noted Patient phones requesting refills as follows: Requested Prescriptions Pending Prescriptions Disp Refills ANORO ELLIPTA 62.5-25 mcg/actuation inhaler [Pharmacy Med Name: ANORO ELLIPTA 62.5-25 MCG INH] 60 Each 1 Sig: INHALE 1 INHALATION INSTRUCTED ONCE DAILY. Please review and advise. Mitzi Hna MA [facility]12-27-2024 History of Present illness Narrative* Rosario Eldridge DO - 02/14/2024 11:00 AM EST February 14, 2024 Standing PSG Orders signed in the last 90 days None Future PSG Orders signed in the last 90 days Ordered Auth. provider POLYSOMNOGRAM (PSG) [[id number]] 01/21/24 Glendy Russ DO Assoc. diagnoses: Pulmonary [...] and Related Procedures, or if the sleep studyis indicated for other reasons. Indications for study: BRIAN suspected with comorbid medical or sleep disorders: Klkdptob-jx-hwtjoy pulmonary disease Sleep study to be performed: Split Study-Polysomnogram with PAP titration Special instructions: Split night study if AHI > 15. Start with 5 cmH2O then titrate per protocol Target REM/supine sleep Add EtCO2 or Transcutaneous CO2 if available HX of Pulmonary HTN Christiana Mominisaías [facility] Staff Note: I have read the above protocol, edited as needed, and agree to the plan. Rosario Rasmussen DO, MASHA 2:21 PM, 02/14/2024 * Nova Hernandez - 02/11/2024 4:02 PM EST February 11, 2024 An order has been received for Polysomnogram (PSG) from Glendy Ames [facility] Staff. Visit prep complete. Comments :No The sleep study is scheduled for 03/20. Insurance: Payor: A[employer]AXD MEDICARE / Plan: A[employer]NA MEDICARE ASSURE HMO D SNP / Product Type: Medicare / Payer/Plan Subscr Sex Relation Sub. Ins. ID Effective Group Num 1. A[employer] MEDICAR* CELSO WELLER 1980 Female Self [id number] 02/18/23 [id number] [address] 2. MEDICAID [place] -* CELSO WELLER 1980 Female Self [id number] 02/19/20 [address] Nova Hernandez documented in this encounterSelect [facility] Telephone encounter Note * Telephone Encounter - Flori Cartagena, MAE - 02/11/2024 9:50 AM EST The following approved medication requests have been transmitted electronically. Requested Prescriptions Signed Prescriptions Disp Refills oxyCODONE IR (ROXICODONE) 10 mg tab 90 tablet 0 Sig: Take 1 tablet by mouth every 8 hours as needed for pain for up to 30 days. Authorizing Provider: IRENE HAN RN [facility]12-24-2024 Miscellaneous Notes* Telephone Encounter - Flori Cartagena RN - 02/11/2024 9:50 AM EST The following approved medication requests have been transmitted electronically. Requested Prescriptions Signed Prescriptions Disp Refills oxyCODONE IR (ROXICODONE) 10 mg tab 90 tablet 0 Sig: Take 1 tablet by mouth every 8 hours as needed for pain for up to 30 days. Authorizing Provider: IRENE HAN RN * Telephone Encounter - Irene Han APRN.PEDRO - 02/11/2024 9:36 AM EST PDMP website checked and validated. All prescriptions have been APPROPRIATELY filled. No suspiciousactivity was identified. 02/11/2024 by Irene Han APRN.TRAINING AND DEVELOPMENT DIRECTOR Rx sent Irene Han APRN.TRAINING AND DEVELOPMENT DIRECTOR * Telephone Encounter - Flori Cartagena RN - 02/11/2024 8:00 AM EST Patient phones requesting refills as follows: Last ordered 01/14/24 Last visit on 12/26/23 Future appt 02/27/24 Requested Prescriptions Pending Prescriptions Disp Refills oxyCODONE IR (ROXICODONE) 10 mg tab 90 tablet 0 Sig: Take 1 tablet by mouth every 8 hours as needed for pain for up to 30 days. Please review and advise. Flori Cartagena RN documented in this encounterSelect [facility] Telephone encounter Note * Telephone Encounter - Irene Han APRN.CNP - 02/11/2024 9:36 AM EST PDMP website checked and validated. All prescriptions have been APPROPRIATELY filled. No suspiciousactivity was identified. 02/11/2024 by Irene Han APRN.TRAINING AND DEVELOPMENT DIRECTOR Rx sent Irene Han APRN.TRAINING AND DEVELOPMENT DIRECTOR [facility]12-24-2024 Telephone encounter Note* Telephone Encounter - Flori Cartagena RN - 02/11/2024 8:00 AM EST Patient phones requesting refills as follows: Last ordered 01/14/24 Last visit on 12/26/23 Future appt 02/27/24 Requested Prescriptions Pending Prescriptions Disp Refills oxyCODONE IR (ROXICODONE) 10 mg tab 90 tablet 0 Sig: Take 1 tablet by mouth every 8 hours as needed for pain for up to 30 days. Please review and advise. Flori Cartagena RN [facility]12-06-2024 Telephone encounter Note* Telephone Encounter - Nia Salmeron HUC - 01/24/2024 3:45 PM EST Received message to schedule RHC. Contacted patient and they elected SaturdayMarch 13. Will submit instructions via my chart. Thank You, Nia Salmeron [facility]12-06-2024 Miscellaneous Notes* Telephone Encounter - Nia Salmeron HUC - 01/24/2024 3:45 PM EST Received message to schedule RHC. Contacted patient and they elected SaturdayMarch 13. Will submit instructions via my chart. Thank You, Nia Salmeron documented in this encounterSelect [facility] History of Present illness Narrative* Glendy Russ DO - 01/21/2024 1:30 PM EST Images from the original note were not included. PULMONARY [facility]YPERTENSION CLINIC Initial Visit January 21, 2024 I had the pleasure of seeing Celso Weller in consultation at the request of Jani Becerril for Pulmonary Hypertension. Summary of this visit and my recommendations will be relayed to the referring physician by way of electronic communication or by mail. 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 [...] C No.3 (B COMPLEX PLUS VITAMIN C) 95-17-83-5-300 mg cap Take 1 tablet by mouth [...] Sclerosis Mother Coronary Artery Disease Maternal Grandfather [place] age 36 Coronary Artery Disease Paternal Grandfather [...] (H) Risk Stratification: REVEAL 2.0 Risk Score (Henrya R et al. Chest 2019;156:2, 323-337) Date Score Therapy - - - Interpretation: Low 0-6: <5% risk of one year mortality Intermediate 7-8: 5-10% risk of one year mortality High -9 or above: >10% risk of one year mortality COMPERA 2.0- Four Stratum Risk Assessment (MM Ritika et al. ERJ 2021; [id number]) Date Risk Score Therapy - - - [...] one year survival, 63% three year survival and46% five year survival -High (above 3.5): predicts [...] however otherwise normal RA/RV size and shape, RVsystolic function is low-normal (TAPSE 1.7, RVS' 10) [...] changes have been made and documented today. Glenyd Russ DO [facility] January 202:46 PM documented in this encounterSelect [facility] History of Present illness Narrative* Radha Hahn, RT(R) - 01/15/2024 11:00 AM EST RADIOLOGY SERVICE PROGRESS NOTE SERVICE DATE: 01/15/2024 [...] PATIENT PRESENTS WITH AN IMPLANTABLE OR ATTACHED CARCASS TRIMMER: No CREATININE: Creatinine Date Value Ref Range [...] 10:46 PATIENT DISCHARGED TO: Ambulatory patient, left [place] department area. Is this a therapy: No A Diagnostic radioactive procedure has taken place, with no further precautions necessary other than routine body substance precautions. More information regarding radiation safety can be found usingthis link: [email or web address] 20Diagnostic%20Nuclear%20Medicine%20Procedures.pdf SIGNATURE: DIMA Rushing) PATIENT NAME: Celso Weller DATE: January 15, 2024 TIME: 10:57 AM PAGER/CONTACT #: documented in this encounterSelect Medical [facility]-2024 NoteHNO ID: [id number] Author: RADHA HAHN RT (R) Service: Nuclear [...] PATIENT PRESENTS WITH AN IMPLANTABLE OR ATTACHED CARCASS TRIMMER: No CREATININE: Creatinine Date Value Ref Range [...] 10:46 PATIENT DISCHARGED TO: Ambulatory patient, left [place] department area. Is this a therapy: No A Diagnostic radioactive procedure has taken place, with no further precautions necessary other than routine body substance precautions. More information regarding radiation safety can be found using this link: [email or web address] 20Diagnostic%20Nuclear%20Medicine%20Procedures.pdf SIGNATURE: RT Сергей(R) PATIENT NAME: Celso Weller DATE: January 15, 2024 TIME: 10:57 AM [id number] History of Present illness Narrative* Perla Powell RRT - 01/15/2024 10:24 AM EST PULM FUNCTION: Provider: Jani Becerril MD Spirometry: 1 DLCO: 1 AB Oximetry - Ambulation: 1 6 MW: 1 documented in this encounterSelect Medical [facility]-2024 Procedure note* Perla Powell RRT - 01/15/2024 10:19 AM ESTAssociated Order(s): OXIMETRY WITH AMBULATION RESPIRATORY THERAPY OXIMETRY WITH [...] January 15, 2024 TIME: 10:19 AM Comment: [facility]11-27-2024 Procedure note* Perla Powell RRT - 01/15/2024 10:19 AM ESTAssociated Order(s): OXIMETRY WITH AMBULATION RESPIRATORY THERAPY OXIMETRY WITH [...] Perla Powell RRT PATIENT NAME: Celso Pacheco Devennevin DATE: January 15, 2024 TIME: 10:19 AM Comment: documented in this encounterSelect Medical [facility]2024 Telephone encounter Note * Telephone Encounter - Irene Han APRN.PEDRO - 01/14/2024 11:58 AM EST PDMP website checked and validated. All prescriptions have been APPROPRIATELY filled. No suspiciousactivity was identified. 01/14/2024 by Irene Han APRN.TRAINING AND DEVELOPMENT DIRECTOR Rx sent Irene Han APRN.TRAINING AND DEVELOPMENT DIRECTOR [facility]11-26-2024 Miscellaneous Notes* Telephone Encounter - Irene Han APRN.CNP - 01/14/2024 11:58 AM EST PDMP website checked and validated. All prescriptions have been APPROPRIATELY filled. No suspiciousactivity was identified. 01/14/2024 by Irene Han APRN.TRAINING AND DEVELOPMENT DIRECTOR Rx sent Irene Han APRN.TRAINING AND DEVELOPMENT DIRECTOR * Telephone Encounter - Kylie Mosher RN - 01/14/2024 8:05 AM EST Patient Mycharts requesting refills as follows: Last ordered 12/16/2023. Next scheduled follow up appointment 02/27/2024. Requested Prescriptions Pending Prescriptions Disp Refills oxyCODONE IR (ROXICODONE) 10 mg tab 60 tablet 0 Sig: Take 1 tablet by mouth two times a day as needed for pain for up to 30 days. Kylie Mosher RN January 14, 2024 documented in this encounterSelect Medical [facility]24 Telephone encounter Note * Telephone Encounter - Jocelyn Edwards RT(R) - 01/14/2024 11:25 AM EST Spoke with patient confirming arrival of 10:45. Explained test, length, no prep and confirmed / status. Patient is schedule in the morning at [facility] for pulmonary appointments and will come down as soon as she is done to see if we can do sooner than appointment for VQ. [facility]11-26-2024 Miscellaneous Notes* Telephone Encounter - Jocelyn Edwards RT(R) - 01/14/2024 11:25 AM EST Spoke with patient confirming arrival of 10:45. Explained test, length, no prep and confirmed / status. Patient is schedule in the morning at [facility] for pulmonary appointments and will come down as soon as she is done to see if we can do sooner than appointment for VQ. documented in this encounterSelect Medical [facility]24 Telephone encounter Note * Telephone Encounter - Jani Becerril MD - 01/14/2024 11:05 AM EST Please let patient know Echo still shows [...] catheterization to ensure that the pulmonary pressures areaccurately reflected My colleague from [place] has reviewed your case as well and the office will reach out to you withan appointment Please let me know if you have any additional questions Thank you Jani Becerril MD [facility]11-26-2024 Miscellaneous Notes* Telephone Encounter - Jani Becerril MD - 01/14/2024 11:05 AM EST Please let patient know Echo still shows [...] catheterization to ensure that the pulmonary pressures areaccurately reflected My colleague from [place] has reviewed your case as well and the office will reach out to you withan appointment Please let me know if you have any additional questions Thank you Jani Becerril MD * Telephone Encounter - Nadir Rowan LPN - 01/08/2024 1:10 PM EST Plan: 01/06/24 We have ruled out acute [...] week POSSIBLE diuretic trial documented in this encounterSelect Medical [facility]-2024 Telephone encounter Note * Telephone Encounter - Kylie Mosher RN - 01/14/2024 8:05 AM EST Patient Mycharts requesting refills as follows: Last ordered 12/16/2023. Next scheduled follow up appointment 02/27/2024. Requested Prescriptions Pending Prescriptions Disp Refills oxyCODONE IR (ROXICODONE) 10 mg tab 60 tablet 0 Sig: Take 1 tablet by mouth two times a day as needed for pain for up to 30 days. Kylie Mosher RN January 14, 2024 [facility]-2024 Telephone encounter Note* Telephone Encounter - Kylie Mosher RN - 01/14/2024 8:03 AM EST Patient Mycharts requesting refills as follows: Last ordered 12/09/2023. Next scheduled follow up appointment 02/27/2024. Requested Prescriptions Pending Prescriptions Disp Refills cyclobenzaprine (FLEXERIL) 10 mg tablet 60 tablet 0 Sig: Take 1 tablet by mouth two times a day as needed for muscle spasm. Kylie Mosher RN January 14, 2024 [facility]11-26-2024 Miscellaneous Notes* Telephone Encounter - Kylie Mosher RN - 01/14/2024 8:03 AM EST Patient Mycharts requesting refills as follows: Last ordered 12/09/2023. Next scheduled follow up appointment 02/27/2024. Requested Prescriptions Pending Prescriptions Disp Refills cyclobenzaprine (FLEXERIL) 10 mg tablet 60 tablet 0 Sig: Take 1 tablet by mouth two times a day as needed for muscle spasm. Kylie Mosher RN January 14, 2024 documented in this encounterSelect Medical [facility]24 Telephone encounter Note * Telephone Encounter - Nadir Rowan LPN - 01/08/2024 1:10 PM EST Plan: 01/06/24 We have ruled out acute [...] upon completion next week POSSIBLE diuretic trial [facility]11-19-2024 Telephone encounter Note* Telephone Encounter - Abida Beal LPN - 01/07/2024 10:28 AM EST Message Received: Yesterday Jani Becerril MD sent to [facility] Pulm Nurse Steven, pls fax my note to patient's pcp thanks [facility] notes with Dr Becerril 01/06/24 faxed to PCP via EPIC [facility]11-19-2024 Miscellaneous Notes* Telephone Encounter - Abida Beal LPN - 01/07/2024 10:28 AM EST Message Received: Yesterday Jani Becerril MD sent to [facility] Pulm Nurse Steven, pls fax my note to patient's pcp thanks [facility] notes with Dr Becerril 01/06/24 faxed to PCP via EPIC documented in this encounterSelect Medical [facility] History of Present illness Narrative* Jani Becerril MD - 01/06/2024 4:35 PM EST Arterial documented in this encounterSelect Medical [facility] History of Present illness Narrative* Jani Becerril MD - 01/06/2024 2:16 PM EST Celso Weller is a 43 year old female here for follow appointment for dyspnea, cough, post XRT related restrictive ventilatory defect and central bronchiectasis. She has history of HL status post chemoradiation, Auto BMT In 2013, pulmonary embolism, PjP pneumonia, hypoxic respiratory failure in 2014 We had last met about last month during her hospitalization at [place] for persistent dyspnea, cough and pulmonary infiltrates. [...] air. She tries to run errands and getsshort of breath I am miserable She is [...] PFT: SPIROMETRY - BASELINE AND POST DILATOR ([id number]) - ordered on 03/28/23 PFT pending scheduled for next week Prior PFTs consistent with restrictive ventilatory defect Bronchoscopy results Blood Stool Urine Misc TM Order Specimen Date Collected Last Update Result Status CC FUNGAL CULTURE (NON DERMAL) [[id number]] Bronchoalveolar Lavage RUL 12/20/2023 1:53 PM 01/05/2024 11:01 PM No Fungus isolated after 16 days Preliminary result Add Me AFB CULT + STAIN [[id number]] Bronchoalveolar Lavage RUL 12/20/2023 1:53 PM 01/04/2024 7:01 AM Culture, Afb: No Acid Fast Bacilli isolated after 14 days Afb Stain: No acid fast bacilli seen by flurochrome stain Preliminary result Add Me ASPERGILLUS GALACTOMANNAN BAL [[id number]] Bronchoalveolar Lavage RUL 12/20/2023 1:53 PM 12/24/2023 [...] Final result BRONCHOSCOPY CULTURE AND GRAM STAIN [[id number]] Bronchoalveolar Lavage RUL 12/20/2023 1:53 PM 12/23/2023 9:58 AM Culture, Bronch: No growth 2 days Gram Stain: No organisms seen Rare Polymorphonuclear leukocytes Gram stain performed on cytospun specimen. Final result LEGIONELLA SPECIES PCR [[id number]] Bronchoalveolar Lavage RUL 12/20/2023 1:53 PM 12/22/2023 11:27 AM Not detected >>NOTE Final result PNEUMOCYSTIS JIROVECII PCR [[id number]] Bronchoalveolar Lavage RUL 12/20/2023 1:53 PM 12/21/2023 12:00 PM Not detected >>NOTE Final result EXPANDED RESPIRATORY PATHOGEN PANEL BY PCR, ROUTINE [[id number]] Bronchoalveolar Lavage RUL 12/20/2023 1:53 PM 12/20/2023 [...] & INFLUENZA A/B & RSV PCR, EXPEDITED [[id number]] Nasopharynx 12/18/2023 7:35 PM 12/18/2023 8:19 PM Sars-Cov-2 (Agent Of Covid-19) Rna: Not detected Influenza A Rna: Not detected Influenza B Rna: Not detected Respiratory Syncytial Virus (Rsv) Rna: Not detected >>NOTE Final result RESPIRATORY CULTURE AND STAIN [[id number]] Sputum 06/13/2023 11:00 PM 06/17/2023 7:50 AM Culture, Respiratory: Rare Stenotrophomonas maltophilia Comment: Insignificant colony count. 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 ([facility]) Comment: Plan: We have ruled out acute [...] 6 weeks for close follow up Jani Becerril MD, [facility] Respiratory [place] I spent a total of 42 minutes on the date of the service which included preparing to see the patient, [id number] patient care, completing clinical documentation, obtaining and/or reviewing separately obtained history, performing a medically appropriate examination, counseling and educating the pat ient/family/caregiver, ordering medications, tests, or procedures, communicating with other HCPs (not separately reported), and independently interpreting results (not separately reported). documented in this encounterSelect Medical [facility]24 Telephone encounter Note * Telephone Encounter - Nadir Rowan LPN - 01/06/2024 12:23 PM EST Being addressed in other phone encounter. Was routed to scheduling to assist with scheduling oximetry with ambulation. [facility]24 Miscellaneous Notes* Telephone Encounter - Nadir Rowan LPN - 01/06/2024 12:23 PM EST Being addressed in other phone encounter. Was routed to scheduling to assist with scheduling oximetry with ambulation. * Telephone Encounter - Renetta Cuellar MA - 01/06/2024 12:06 PM EST Images from the original note were not included. Delmi Russell APRN.TRAINING AND DEVELOPMENT DIRECTOR You 9 minutes ago (11:58 AM) Please make sure patient is schedule for walk test. Thank you. documented in this encounterSelect Medical [facility]11-18-2024 Telephone encounter Note * Telephone Encounter - Renetta Cuellar MA - 01/06/2024 12:06 PM EST Images from the original note were not included. Delmi Russell APRN.TRAINING AND DEVELOPMENT DIRECTOR Lalo 9 minutes ago (11:58 AM) Please make sure patient is schedule for walk test. Thank you. [facility]11-15-2024 History of Present illness Narrative* Korina Vega MD - 01/03/2024 2:45 PM EST Images from the original note were not included. [facility] [place] [facility] Department of Cardiovascular Medicine SECTION [...] Yes, Claudication:No CONDITIONS: Hypertension: No, Heart failure:No, [place] Heart Association Functional Classification: Class II,Atrial fibrillation:No, History of myocardial infarction/angina: No, History of CABG/PCI:No, Valvular heart disease: No, Cardiomyopathy: No, Aortic diseases: No, Peripheral vascular disease: No, Histo ry of cerebrovascular accident: No, History of pulmonary [...] Sclerosis Mother Coronary Artery Disease Maternal Grandfather [place] age 36 Coronary Artery Disease Paternal Grandfather [...] pacemaker/ICD:No, Median sternotomy scar:No, Sternal instability:No CARDIAC: [place] beat not localized, Cardiac thrill:No, Heart rate normal:Yes, Heart rhythm normal:Yes, S1 normal:Yes, S2 normal:Yes, S3 ausculated:No, S4 ausculated:No, Gallop ausculated:No, Heart murmur:No, Prosthetic valve click:No, Pericardial friction rub:No ABDOMINAL:Abdomen soft, non-tender. BS normal. No masses or organomegaly. VASCULAR/EXTREMITIES:Radial pulse normal:Yes, Carotid pulse normal:Yes, Carotid bruit:No, Abdominalaorta palpable:No, Abdominal aortic bruit:No, Femoral pulse normal:Yes, Femoral bruit:No, Dorsalis pedis pulse present:Yes, Posterior tibial pulse present:Yes, Popliteal pulse:Yes, Varicose veins:No,Leg edema:No, Pedal edema:Yes NEUROLOGIC: Grossly non-focal:Yes MUSCULOSKELETAL: [...] percussion and decreased breath sounds in the leftlower third of the lung field. The patient's presenting symptoms and findings, along with clinical and echocardiographic findings and implications were discussed in detail with the patient. Although anticipating an extremely low yield I have suggested repeat echocardiogram to see if therehas been any change in cardiac structure or [...] which included preparing to see the patient, wrbh-yx-[id number] patient care, completing clinical documentation, performing a medically appropriate examination, counseling and educating the patient/family/caregiver and ordering medications, tests or procedures. Encounter Diagnosis ICD-10-CM 1. Other acute pulmonary embolism, unspecified whether acute cor pulmonale present ([facility]) I26.99 ECHO 2. Pleural effusion, left J90 ECHO 3. Pulmonary hypertension (HCC) I27.20 ECHO Korina Vega MD documented in this encounterSelect Medical [facility]11-[facility]-2024 Nurse Note* Elaine Enriquez LPN - 01/03/2024 2:43 PM EST Bathhouse Attendant present: Elaine Enriquez LPN [facility]11-15-2024 Instructions* Patient Instructions* Korina Vega MD - 01/03/2024 2:43 PM EST Echo at [facility] at next visit documented in this encounterSelect Medical [facility]11-15-2024 Nurse Note* Elaine Enriquez LPN - 01/03/2024 2:43 PM EST Bathhouse Attendant present: Elaine Enriquez LPN documented in this encounterSelect Medical [facility]11-15-2024 History of Present illness Narrative* Carole Patino RT(R) - 01/03/2024 1:30 PM EST Radiology Service Progress Note PATIENT NAME: Celso [...] PATIENT PRESENTS WITH AN IMPLANTABLE OR ATTACHED CARCASS TRIMMER: No RADIOLOGY DEPARTMENT: Ultrasound PERIPHERAL IV DATA: Not applicable SIGNED BY: RT Dorian(R) January 03, 2024 1:41 PM documented in this encounterSelect Medical [facility]11-15-2024 NoteHNO ID: [id number] Author: CAROLE PATINO RT(Junior) Service: Radiology Author Type: Technologist Type: [...] PATIENT PRESENTS WITH AN IMPLANTABLE OR ATTACHED CARCASS TRIMMER: No RADIOLOGY DEPARTMENT: Ultrasound PERIPHERAL IV DATA: Not applicable SIGNED BY: RT Dorian(R) January 03, 2024 1:41 [facility] [id number] Telephone encounter Note* Telephone Encounter - Kylie Mosher RN - 01/02/2024 12:00 PM EST Palliative Medicine Care Coordination Follow up Phone Call Telephone call to Celso R Devennevin with no answer, left a detailed voicemail regarding Irene Han CNP's recommendation to consider changing her dosing of the Oxy IR 10 mg 1 tablet to take at 7 am andmid afternoon. Let her know that if not effective we may trial oxycodone 10 mg every 8 hours as needed for pain. Also to continue her Tylenol as ordered. Call back number given if not effective or ifshe has any other questions. Kylie Mosher RN January 02, 2024 12:03 PM [facility]11-14-2024 Miscellaneous Notes* Telephone Encounter - Kylie Mosher RN - 01/02/2024 12:00 PM EST Palliative Medicine Care Coordination Follow up Phone Call Telephone call to Celso Weller with no answer, left a detailed voicemail regarding Irene Han CNP's recommendation to consider changing her dosing of the Oxy IR 10 mg 1 tablet to take at 7 am andmid afternoon. Let her know that if not effective we may trial oxycodone 10 mg every 8 hours as needed for pain. Also to continue her Tylenol as ordered. Call back number given if not effective or ifshe has any other questions. Kylie Mosher RN January 02, 2024 12:03 PM * Telephone Encounter - Irene Han APRN.CNP - 01/02/2024 11:38 AM EST Consider changing her dosing to 7 am and mid afternoon. If this doesn't help may trial oxycodone 10mg TID (Q8H) PRN for pain. Irene Han APRN.CNP documented in this encounterSelect Medical [facility]11-14-2024 Telephone encounter Note * Telephone Encounter - Irene Han APRN.CNP - 01/02/2024 11:38 AM EST Consider changing her dosing to 7 am and mid afternoon. If this doesn't help may trial oxycodone 10mg TID (Q8H) PRN for pain. Irene Han APRN.CNP [facility]11-07-2024 History of Present illness Narrative* Irene Han APRN.CNP - 12/26/2023 2:00 PM EST PALLIATIVE MEDICINE PROGRESS NOTE SERVICE DATE: December 26, 2023 IDENTIFICATION AND INTRODUCTION: Celso Weller is a 43 year old female This visit took place Virtually; I have communicated my name and active licensure. The patient's identity and physical location were verified at the time of this visit. The patient or their legal graphic art sales representative has been informed of the [...] autologous SCT (2013) and several other treatments dueto recurrences in that time. She has undergone [...] PET/CT in 01/2023 and 05/2023 remained without evide nce of disease. Palliative care is following for symptom control needs. Subjective Seen today virtually for follow up. Saw an glass laminating operator with [facility] - needed tetanus booster. Also did a pneumonia panel, all the markerswere low. Given a pneumonia vaccine also. Will have titers rechecked this month. Will then do allergy testing to work up sinus issues. Had pain management appointment this morning. Celso shared that suggestions were increase gabapentin(however this was already tried and failed), Keppra [...] her sleep quality and how she feels uponwaking. Had bronchoscopy on 12/19 and will f/u with Dr. Becerril to continue discussion about next steps. Pain continues in her chest which is unchanged. Intermittently bothersome. Depending on pain level,she will take flexeril, APAP, or oxycodone PRN. Continues gabapentin as is. No confusion, oversedation, myoclonus, constipation. REVIEW OF SYSTEMS: Review of Systems Modified ESAS ([place] Symptom Assessment Scale) Information Provided By: Patient Pain: Mild Nausea: None Loss of Appetite: None Constipation: None Shortness of Breath: Moderate Drowsiness: None Tiredness: Moderate Depression: None Anxiety: None How you feel overall: Fair Objective PHYSICAL EXAMINATION: LMP 11/18/2012 Physical Exam DATA: Diagnostic tests reviewed [...] been APPROPRIATELY filled. No suspiciousactivity was identified. 12/26/2023 by Irene Han APRN.TRAINING AND DEVELOPMENT DIRECTOR Urine Screen Lab Results Component Value Date [...] Urine pH, Pain Ocasio 6.3 02/24/2021 Specific [place],Ur Pain Ocasio 1.012 02/24/2021 [place],Ur 46 02/24/2021 [...] need to be set up at [facility] [place]. 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 While every effort was made to correct voice recognition errors, kindly be aware that some errors may occasionally occur. documented in this encounterSelect Medical [facility]11-07-2024 History of Present illness Narrative* Kodi Pantoja MD - 12/26/2023 8:30 AM EST Ms. Weller a 43 year old female [...] two times a day as needed for musclespasm. sodium chloride (NEBUSAL) 3 % nebulizer solution [...] C No.3 (B COMPLEX PLUS VITAMIN C) 13-68-40-5-300 mg cap Take 1 tablet by mouth [...] supervised home exercise program (HEP): No 5. Supervisor Wool Shearing: No Passive conservative therapy lasting 6 weeks [...] which included preparing to see the patient, dokg-in-qyoc patient care, completing clinical documentation, obtaining and/or reviewing separately obtained history, performing a medically appropriate examination, counseling and educating the pat ient/family/caregiver, ordering medications, tests, or procedures, communicating with other HCPs (not separately reported), independently interpreting results (not separately reported), communicatingresults to the patient/family/caregiver, and care coordination (not separately reported). Kodi Pantoja MD documented in this encounterSelect Medical [facility]11-06-2024 Telephone encounter Note * Telephone Encounter - Bianca Quintana - 12/25/2023 11:03 AM EST OV with Dr. Becerril added for 01/05. LVM and MC explaining need to schedule PFTs before office visit with Mehul [facility]11-06-2024 Miscellaneous Notes* Telephone Encounter - Bianca Quintana - 12/25/2023 11:03 AM EST OV with Dr. Becerril added for 01/05. LVM and MC explaining need to schedule PFTs before office visit with Mehul documented in this encounterSelect Medical [facility]11-01-2024 NoteHNO ID: [id number] Author: FLORI CURRAN RN Service: Care Management [...] needed Transportation Arrangements Transportation Arrangements: Car Destination: [facility] [address] Handoff Communication: Handoff to: Primary Care Physician Primary Care Physician Name/Phone: Bee Vail MD PCP - General, Internal Medicine [phone] SIGNATURE: Flori Curran RN PATIENT NAME: Celso Weller DATE: December 20, 2023 TIME: 3:25 PM CONTACT #: [phone] NoteHNO ID: [id number] Author: NURIA MEZA AA Service: ? Author Type: Knit Tubing Dyer Type: Anesthesia Procedure Notes Filed: 12/20/2023 13:51 [...] December 20, 2023 TIME: 1:51 PM CSN: [id number] [facility] Procedure: Bronchoscopy Indications: Bilateral infiltrate Providers: [...] Addenda: 0 Note Initiated On: 12/20/2023 1:24 [facility] HospitalVmrgyccr83-85-4993 NoteHNO ID: [id number] Author: FLORI CURRAN RN Service: Care Management [...] Medical clearance-pt already has home O2 through [employer] SIGNATURE: Flori Curran RN PATIENT NAME: Celso Weller DATE: December 20, 2023 TIME: 11:20 AM PAGER/CONTACT #: [phone] NoteHNO ID: [id number] Author: CARLOS CASTELLON MD Service: Hospital Medicine Author Type: Physician Type: Progress Notes Filed: 12/20/2023 09:44 Note Text: DEPARTMENT OF HOSPITAL MEDICINE PROGRESS NOTE SERVICE DATE: 12/20/2023 SERVICE TIME: 6:38 AM Hospital Medicine/Primary Attending: Carlos Castellon MD NIGHT AND WEEKEND COVERAGE: JESS COVERAGE: Days: , please contact via [facility] [employer] Nights: [phone] - 3rd floor: please page [facility] Hospitalist night cover [phone] - 4W: please page [facility] Hospitalist night cover #[phone] - 5th floor: please page [facility] Hospitalist night cover #[phone] - SDU (17:00 - 19:00): Please page #[phone] - SDU (19:00 - 07:00): Please call [facility] at [phone] Subjective INTERVAL HPI: Patient seen and examined. [facility] reviewed. KIM. Current Facility-Administered Medications Medication [...] (most recent episode on October, treated at [facility]) with persistent shortness of breath, new oxygen requirements 3 L with exertion, ground glass changes on most recent PET/CT who was sent in to the ED by her client service administrator to be admitted in the hospital for bronchoscopy #Restrictive lung disease #Hypoxia. Joel with ambulation. In at pulmonary appt Admit to medicine for inpatient bronchoscopy Xarelto last dose was 12/15 PM. N.p.o. after midnight Pulmonology consulted Continue DuoNeb inhalers and hypertonic saline bronchial hygiene #Hypokalemia-replaced PO. Monitor PRN Chronic Medical Problems #CIPN-cont flexeril oxycodone, gabapentin #MDD/anxiety-lexapro, ativan TID PRN #Hypothyroidism-cont synthroid #GERD-PPI #Hx HL s/p BMT-OP onc follow up Medication and Non-Pharmacologic VTE Prophylaxis/Anticoagulants 12/19/23121 vte pharmacologic prophylaxis contraindicated (co,nm) 12/19/23121 pneumatic compression stockings (co,nm) 12/19/23121 activity - mobilize patient ([place], [place]) VTE Prophylaxis: VTE prophylaxis appropriate Disposition: Home Plan of care discussed with Provider, RN, Patient SIGNATURE: Carlos Castellon MD PATIENT NAME: Celso Weller DATE: December 20, 2023 TIME: 6:38 [facility]hillWezvwarr03-00-3731 NoteHNO ID: [id number] Author: FLORI CURRAN RN Service: Care Management Author Type: Registered Nurse Type: Care Mgt Initial Assessment Filed: 12/19/2023 15:47 Note Text: CARE MANAGEMENT: ASSESSMENT AND DISCHARGE PLAN SERVICE DATE: December 19, 2023 SERVICE TIME: 3:43 PM PCP: Bee Vail MD Primary Contact: Extended Emergency Contact Information Primary Emergency Contact: [place] Relation: Significant other Admission Status: Inpatient Insurance Provider: [employer] MEDICARE ASSURE O D SNP Discharge Planning requested by: Per Department Practice Potential Transition Plans No Services Indicated Advance Directives Current Advance Directive: Health Care 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;Living Will In Chart: No Current Living Arrangements and Support Lives with: Spouse/significant other Type of Residence: Private Residence (House) Does the patient have to climb stairs at home?: stairs within the home Support: Spouse/significant other, Family members How do you manage to accomplish the following: Independent: Ambulation;Bathe/Shower;Dress;Meals/Meal Prep;Medication Management;Going to the bathroom;Transportation to appointments/community Current Services/Equipment Current Post-Acute Service(s): Oxygen Current O2 Usage (device, rate, continuous/pulse and hrs per day): 3 LPM Current Post-Acute Service(s) Provider: PRN through [facility] Discharge Planning Patient Goal(s): Be able to go home, General wellness Melvin of Choice Explained: Melvin of Choice Given: No Reason Not Given: No placements necessary Discharge Planning Participant(s): Patient Caregiver Assessment: Caregiver is ready, willing and able to meet the patient's needs as recommended by the inter-professional team: No Caregiver needed Transport at Discharge: Transportation Arrangements: Car Destination: [address] [facility] [address] Needs Prior to Discharge: Needs Prior to Discharge: Discharge Prescriptions Post-Acute Discharge Plan: CM met with pt bedside and explained my role in transitional care planning. Pt admitted with respiratory failure. Pt a/o x 3. Pt lives with fiance at home. Independent with ADLs and iADLs. Pt is on 3L 02 PRN through [employer]. Follows with pall med (Irene Han ACCOUNT SERVICES ASSOCIATE.TRAINING AND DEVELOPMENT DIRECTOR) outpatient. Plan for bronchoscopy mai. No d/c needs anticipated. Family member will transport at d/c. SIGNATURE: Flori Curran RN PATIENT NAME: Celso Weller DATE: December 19, 2023 TIME: 3:43 PM CONTACT #: [phone] NoteHNO ID: [id number] Author: CARLOS CASTELLON MD Service: Hospital Medicine Author Type: Physician Type: Plan of Care Filed: 12/19/2023 10:57 Note Text: Patient seen and examined. Epic reviewed. NAEON. Sent in by client service administrator for bronch. Maintain NPO except meds and ice chips. Appreciate pulm assistance in coordination. Replete K this AM. Rest per HANDP. Carlos Castellon MD Internal Medicine Epic Chat preferred 12/19/23 8:27 [facility]hillEsklvgjc20-00-9999 NoteHNO ID: [id number] Author: NURIA NATHAN RT(R) Service: Radiology Author [...] PATIENT PRESENTS WITH AN IMPLANTABLE OR ATTACHED CARCASS TRIMMER: No RADIOLOGY DEPARTMENT: General X-ray: Exam(s) Completed: Chest X-Ray PERIPHERAL IV DATA: Not applicable SIGNED BY: RT Candido(R) December 18, 2023 7:50 [facility] HospitalLjzdbhho90-17-2853 [id number] (AGENT OF COVID- 19) RNA: Not detected INFLUENZA A RNA: Not detected INFLUENZA B RNA: Not detected RESPIRATORY SYNCYTIAL VIRUS (RSV) RNA: Not detectedHilton Head Island HospitalComment on above:Performed By: #### [id number] ####[facility] LABORATORYCLIA [id number] [facility] [place] [address] [place] [id number] Telephone encounter Note* Telephone Encounter - Renetta Cuellar MA - 12/17/2023 12:18 PM EDT Faxed form to [facility] Confirmation received [facility]-29-2024 Miscellaneous Notes* Telephone Encounter - Renetta Cuellar MA - 12/17/2023 12:18 PM EDT Faxed form to [facility] Confirmation received * Telephone Encounter - Renetta Cuellar MA - 12/17/2023 12:12 PM EDT Received oxygen therapy SWO form from [facility] Placed on desk for Kylie to review and sign. * Telephone Encounter - Renetta Cuellar MA - 12/17/2023 10:00 AM EDT Faxed oxygen orders to [facility] Confirmation received * Telephone Encounter - Renetta Cuellar MA - 12/17/2023 9:03 AM EDT Oxygen orders to be sent to Steff Bergmanpatricia documented in this encounterSelect Medical [facility]10-29-2024 Telephone encounter Note * Telephone Encounter - Renetta Cuellar MA - 12/17/2023 12:12 PM EDT Received oxygen therapy SWO form from [facility] Placed on desk for Kylie to review and sign. [facility]-29-2024 Telephone encounter Note* Telephone Encounter - Renetta Cuellar MA - 12/17/2023 10:00 AM EDT Faxed oxygen orders to [facility] Confirmation received [facility]-2024 Telephone encounter Note* Telephone Encounter - Renetta Cuellar MA - 12/17/2023 9:03 AM EDT Oxygen orders to be sent to Steff Bergmanpatricia [facility]-29-2024 History of Present illness Narrative* 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 APRN.PEDRO - 12/17/2023 8:30 AM EDT Images from the original note [...] (most recent episode on October, treated at [facility]) now with persistent shortness of breath, NEW oxygen requirements, ground glass changes on most recent PET/CT. Her case was reviewed with Dr. Becerril in detail. The recommendations at our visit [...] was 12/15 PM. Will need to be hel 4 totaldoses. Will review with [place] team about Bronchoscopy or Saturday. She would be willing to go to the ER at [place] the night before confirmed procedure. I have arranged for her to have oxygen delivered to her home today with [facility]. She should wear 4L with exertion. [...] or chills. Electronically signed by 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 APRN.[facility] Respiratory [place], [facility] December 17, 2023 9:40 AM Time [...] infection this year. Most recently treated at [facility] on 10/28. Since that time she has [...] ICD10: R49.9 Treated recently for pneumonia at [facility] with Levaquin and Doxycycline as well as an extended prednisone taper. Slow improvement but certainly not back to baseline. THIRD pneumonia infection this year. Unclear etiologies of pneumonia; currently working with Allergy/immunology to determine if there isan immune deficiency contributing. I would like to evaluate her lungs once well to check for any structural abnormalities which may becontributing. Will have her get a CT Chest in about 5 weeks time. Given the recurrence of pneumonia will STOP her ICS and have her maintained on LAMA/LABA. With the history of bronchiectasis she would benefit from more aggressive airway clearance which we discussedtoday. If she is able to start producing, will check sputum cultures and AFB; cups provided at thisvisit today. She should also be evaluated by ENT/Speech (Dr. Zendejas) for her voice impairment and GI to have her swallowing/muscle function evaluated. Will try to obtain chest imaging from [facility] for direct comparison. Airway clearance: To be [...] 10/14/2013 12/21/2013 03/11/2014 Haemophilus influenzae b-meningococcal bivalent (Zzs-TwgFA-EJ) vaccine (MENHIBRIX) 10/14/2013 diphtheria tetanus (DT) vaccine, [...] Collected: 03/28/2023 1:39 PM (Final result) Narrative: [facility] [address] [facility] [place] [address] Test Date: 2023-03-28 Pat Name: CELSO CARVALHONEVIN Department: Room: Gender: Female Professional Nursing Assistant: : 1980 Requested By: Order Number: [id number] Reading MD: Letitia Dodge MD Interpretive Statements [...] 17:02:40 EST by Letitia Dodge MD ID: [id number] Name: CELSO WELLER Race: White Ht: 70.87 [...] 0.73 25 FIVC (L) 2.01 1.98 -1 PYR47-91 (L/sec) 1.76 2.20 3.64 5.38 48 2.24 [...] % 81 FEV1/FVC POST (%) % 84 FUK78-06% PRE (L/S) L/S 1.76 LWJ76-31% POST (L/S) L/S 2.24 PEF PRE (L/S) [...] stable. ... Recent Results (from the past 98156 hour(s)) ECHO Collection Time: 03/20/23 8:58 AM [...] 2023 This note was partially generated using [employer] voice recognition system, and there may be some incorrect words, spellings, and punctuation that were not noted in checking the note before saving. documented in this encounterSelect Medical [facility]10-28-2024 Telephone encounter Note * Telephone Encounter - Kristina Pete RN - 12/16/2023 8:52 AM EDT Next visit 12/23/23 Irene Han Last filled 11/14/23 Patient phones requesting refills as follows: Requested Prescriptions Pending Prescriptions Disp Refills oxyCODONE IR (ROXICODONE) 10 mg tab 60 tablet 0 Sig: Take 1 tablet by mouth two times a day as needed for pain for up to 30 days. Please review and advise. Kristina Pete RN [facility]10-28-2024 Miscellaneous Notes* Telephone Encounter - Kristina Pete RN - 12/16/2023 8:52 AM EDT Next visit 12/23/23 Irene Han Last filled 11/14/23 Patient phones requesting refills as follows: Requested Prescriptions Pending Prescriptions Disp Refills oxyCODONE IR (ROXICODONE) 10 mg tab 60 tablet 0 Sig: Take 1 tablet by mouth two times a day as needed for pain for up to 30 days. Please review and advise. Kristina Pete RN documented in this encounterSelect Medical [facility]10-23-2024 History of Present illness Narrative* Mitzi Nash RN - 12/11/2023 12:00 PM EDT Radiology Service Progress Note DATE OF [...] DATE: December 11, 2023 TIME: 12:04 PM * Bee Singleton RT(R) - 12/11/2023 12:00 PM EDT RADIOLOGY SERVICE PROGRESS NOTE SERVICE DATE: 12/11/2023 SERVICE TIME: 12:08 PM PATIENT IDENTITY VERIFICATION COMPLETED USING TWO (2) STANDARD IDENTIFIERS: Name and Date of confirmed by patient verbally POST EXAM PIV STATUS: Discontinued PROCEDURE TYPE: NM INJECT: PET/CT BODY SCAN. 13.9 mCi F18 FDG. No other medications given.. ADMINISTRATION TIME: 1204 PATIENT DISCHARGED TO: Ambulatory patient, left [place] department area. A Diagnostic radioactive procedure has taken place, with no further precautions necessary other than routine body substance precautions. More information regarding radiation safety can be found usingthis link: [email or web address] SIGNATURE: DIMA Julien) PATIENT NAME: Celso Carvalhonevin DATE: December 11, 2023 TIME: 12:08 PM PAGER/CONTACT #: documented in this encounterSelect Medical [facility] Telephone encounter Note * Telephone Encounter - Kylie Mosher RN - 12/09/2023 12:49 PM EDT Patient Mycharts requesting refills as follows: Last ordered 09/30/2023. Next scheduled follow up appointment 12/23/2023. Requested Prescriptions Pending Prescriptions Disp Refills cyclobenzaprine (FLEXERIL) 10 mg tablet 60 tablet 0 Sig: Take 1 tablet by mouth two times a day as needed for muscle spasm. Kylie Mosher RN December 09, 2023 [facility]10-21-2024 Miscellaneous Notes* Telephone Encounter - Kylie Mosher RN - 12/09/2023 12:49 PM EDT Patient Mycharts requesting refills as follows: Last ordered 09/30/2023. Next scheduled follow up appointment 12/23/2023. Requested Prescriptions Pending Prescriptions Disp Refills cyclobenzaprine (FLEXERIL) 10 mg tablet 60 tablet 0 Sig: Take 1 tablet by mouth two times a day as needed for muscle spasm. Kylie Mosher RN December 09, 2023 documented in this encounterSelect Medical [facility]10-16-2024 History of Present illness Narrative* Gabrielle Zepeda MD - 12/04/2023 9:20 AM EDT Celso Weller returns to the office today [...] her chest x-ray side by side to seeif these are more consistent with pneumonia or postradiation changes. Chronic rhinitis - Given her rhinitis symptoms we agreed to perform skin testing to environmental allergens see her back in follow-up. I suggested she stop trazodone 5 days prior to that visit. documented in this encounterOzarks Community [id number] Telephone encounter Note* Telephone Encounter - Renetta Cuellar MA - 12/02/2023 10:07 AM EDT Last Office Visit : 11/21/23 Next Office Visit: 01/14/24 Pharmacy electronically requests the following refill(s) Requested Prescriptions Pending Prescriptions Disp Refills umeclidinium-vilanterol (ANORO ELLIPTA) 62.5-25 mcg/actuation inhaler [Pharmacy Med Name: ANORO ELLIPTA 62.5-25 MCG INH] 60 Each 1 Sig: INHALE 1 INHALATION INSTRUCTED ONCE DAILY. Renetta Cuellar MA [facility]10-14-2024 Miscellaneous Notes* Telephone Encounter - Renetta Cuellar MA - 12/02/2023 10:07 AM EDT Last Office Visit : 11/21/23 Next Office Visit: 01/14/24 Pharmacy electronically requests the following refill(s) Requested Prescriptions Pending Prescriptions Disp Refills umeclidinium-vilanterol (ANORO ELLIPTA) 62.5-25 mcg/actuation inhaler [Pharmacy Med Name: ANORO ELLIPTA 62.5-25 MCG INH] 60 Each 1 Sig: INHALE 1 INHALATION INSTRUCTED ONCE DAILY. Renetta Cuellar MA documented in this encounterSelect Medical [facility]10-10-2024 Telephone encounter Note * Telephone Encounter - Flori Cartagena RN - 11/28/2023 2:04 PM EDT Please see my chart message and advise. Thank you, HAMZAH Tolliver, PN Parole Agent [facility]10-10-2024 Miscellaneous Notes* Telephone Encounter - Flori Cartagena RN - 11/28/2023 2:04 PM EDT Please see my chart message and advise. Thank you, HAMZAH Tolliver, [facility] Parole Agent documented in this encounterSelect Medical [facility]10-10-2024 History of Present illness Narrative* Sheila Lin NP - 11/28/2023 8:30 AM EDT Images from the original note were not included. Subjective Patient ID: Celso Weller is a 43 y.o. female who presents for 3 month. 3 mo follow up ([facility] 08/2023) She reports she doesn't feel right [...] this year Referred her to allergy/immunology- Dr Zepeda- ordered labs She completed the labs- no [...] 4 (four) times a day as needed foranxiety 120 tablet 2 oxyCODONE (Roxicodone) 10 MG [...] mouth as needed at bedtime for sleep 90tablet 3 traZODone (Desyrel) 50 MG tablet take [...] disturbance. Negative for suicidal ideas. The patient isnervous/anxious. Visit Vitals BP 110/74 Pulse 99 Ht [...] by mouth as needed at bedtime for sleepDispense: 30 tablet; Refill: 0 4. Restrictive lung disease 5. Mild intermittent asthma, unspecified whether complicated ([facility]/HCC) Sees pulmonary Continue plan Monitor Saw allergy due to 3 episodes of pneumonia this year Had labs- advised to call them re: results- not able to see in epic 6. Acquired hypothyroidism (CMS/HCC) Stable Continue plan monitor 7. Nodular sclerosing Hodgkin's lymphoma, unspecified body region ([facility]) Sees oncology Having a repeat pet scan in 2 weeks 10. Neuropathy Improved symptoms with increase in gabapentin Taking 2 tabs twice daily Continue same 11. Daily headache As above - CT head wo IV contrast; Future Sheila Lin NP We will continue to follow up with this patient on a continued termite technician basis to monitor and treatthe above listed problems as well as their other chronic illnesses as part of a longitudinal care plan documented in this encounterOzarks Community [id number] Telephone encounter Note* Telephone Encounter - Renetta Cuellar MA - 11/26/2023 12:14 PM EDT Image have been imported [facility]10-08-2024 Miscellaneous Notes* Telephone Encounter - Renetta Cuellar MA - 11/26/2023 12:14 PM EDT Image have been imported * Telephone Encounter - Renetta Cuellar MA - 11/21/2023 1:42 PM EDT Images from the original note were not included. NADIA form was faxed to [facility] this morning Confirmation was received Received CT and CXR image reports below from [facility] Sent reports for scanning in chart. Requested the images to be pushed as well documented in this encounterSelect Medical [facility]10-08-2024 Telephone encounter Note * Telephone Encounter - Zaira Jorgensen - 11/26/2023 8:48 AM EDT Spoke to patient & rescheduled CT chest in [place] on 12/27/2023 @ 7:45 am. Also, her PET scan on @12 pm. [facility]10-08-2024 Miscellaneous Notes* Telephone Encounter - Zaira Jorgensen - 11/26/2023 8:48 AM EDT Spoke to patient & rescheduled CT chest in [place] on 12/27/2023 @ 7:45 am. Also, her PET scan on @12 pm. * Telephone Encounter - Jeny Nava RN - 11/26/2023 8:17 AM EDT Pt is scheduled for chest w/o in [place] 12/26/23. Pt typically gets her CT scans at our location. Ifshe would like to complete here, please schedule,verses driving to [place]. Left VM for pt with thisoption as well. Jeny Nava RN * Telephone Encounter - Jeny Nava RN - 11/25/2023 11:59 AM EDT PSS: Please call to arrange Jeny Nava RN * Telephone Encounter - Ruperto Ledezma MD - 11/25/2023 11:57 AM EDT Okay to schedule the patient's PET scan anytime at her convenience. * Telephone Encounter - Jeny Nava RN - 11/25/2023 10:11 AM EDT Pt called to request PET to be completed now vs 6 months , as recommended 11/11/23 appt. She reports sleeping all the time and I just feel something is off, not right. No fevers, chills, nvd reported. Extreme fatigued is the only symptom. Pt followed up with PCP and pneumonia has cleared. BRM/HM: Please advise Jeny Nava RN documented in this encounterSelect Medical [facility]10-08-2024 Telephone encounter Note * Telephone Encounter - Jeny Nava RN - 11/26/2023 8:17 AM EDT Pt is scheduled for chest w/o in [place] 12/26/23. Pt typically gets her CT scans at our location. Ifshe would like to complete here, please schedule,verses driving to [place]. Left VM for pt with thisoption as well. Jeny Nava RN [facility]10-07-2024 Telephone encounter Note* Telephone Encounter - Jeny Nava RN - 11/25/2023 11:59 AM EDT PSS: Please call to arrange Jeny Nava RN [facility]10-07-2024 Telephone encounter Note* Telephone Encounter - Ruperto Ledezma MD - 11/25/2023 11:57 AM EDT Okay to schedule the patient's PET scan anytime at her convenience. [facility] Work Phone: [phone] Telephone encounter Note* Telephone Encounter - Jeny Nava RN - 11/25/2023 10:11 AM EDT Pt called to request PET to be completed now vs 6 months , as recommended 11/11/23 appt. She reports sleeping all the time and I just feel something is off, not right. No fevers, chills, nvd reported. Extreme fatigued is the only symptom. Pt followed up with PCP and pneumonia has cleared. BRM/HM: Please advise Jeny Nava RN [facility]10-03-2024 Telephone encounter Note* Telephone Encounter - Renetta Cuellar MA - 11/21/2023 1:42 PM EDT Images from the original note were not included. NADIA form was faxed to [facility] this morning Confirmation was received Received CT and CXR image reports below from [facility] Sent reports for scanning in chart. Requested the images to be pushed as well [facility]10-03-2024 Telephone encounter Note* Telephone Encounter - Renetta Cuellar MA - 11/21/2023 12:30 PM EDT Images from the original note were not included. [facility]10-03-2024 Miscellaneous Notes* Telephone Encounter - Renetta Cuellar MA - 11/21/2023 12:30 PM EDT Images from the original note were not included. documented in this encounterSelect Medical [facility]10-03-2024 History of Present illness Narrative* Severo Ardon RT(Junior) - 11/21/2023 9:14 AM EDT Radiology Service Progress Note PATIENT [...] PATIENT PRESENTS WITH AN IMPLANTABLE OR ATTACHED CARCASS TRIMMER: No RADIOLOGY DEPARTMENT: General X-ray: Exam(s) Completed: Chest X-Ray PERIPHERAL IV DATA: Not applicable SIGNED BY: RT Eugenio(R) November 21, 2023 9:14 AM documented in this encounterSelect Medical [facility]10-03-2024 Instructions* Patient Instructions* 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 APRN.CNP - 11/21/2023 8:53 AM [...] GI and Speech (Aashish) documented in this encounterSelect Medical [facility]10-03-2024 History of Present illness Narrative* 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 APRN.CNP - 11/21/2023 8:30 AM EDT Images from the original note [...] ICD10: R49.9 Treated recently for pneumonia at [facility] with Levaquin and Doxycycline as well as an extended prednisone taper. Slow improvement but certainly not back to baseline. THIRD pneumonia infection this year. Unclear etiologies of pneumonia; currently working with Allergy/immunology to determine if there isan immune deficiency contributing. I would like to evaluate her lungs once well to check for any structural abnormalities which may becontributing. Will have her get a CT Chest in about 5 weeks time. Given the recurrence of pneumonia will STOP her ICS and have her maintained on LAMA/LABA. With the history of bronchiectasis she would benefit from more aggressive airway clearance which we discussedtoday. If she is able to start producing, will check sputum cultures and AFB; cups provided at thisvisit today. She should also be evaluated by ENT/Speech (Dr. Zendejas) for her voice impairment and GI to have her swallowing/muscle function evaluated. Will try to obtain chest imaging from [facility] for direct comparison. Airway clearance: To be [...] or chills. Electronically signed by 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 APRN.[facility] Respiratory [place], [facility] November 20, 2023 9:10 AM Time [...] follow-up regarding recent pneumonia infection. Admitted to [facility] for 3 days with pneumonia. This [...] GI evaluation but did not see any grossabnormalities and she was advised she could continue [...] laterality, unspecified part of lung - ICD9: 486,ICD10: J18.9 (primary diagnosis) Pulmonary hypertension (HCC) - [...] continue to work on getting images/reports from [facility] for comparison. - OXIMETRY WITH AMBULATION prior to next visit (when off prednisone) to reassess need for supplemental oxygen with exertion. - - Patient previously returned her oxygen to the [employer]. - Let me know if you feel [...] 10/14/2013 12/21/2013 03/11/2014 Haemophilus influenzae b-meningococcal bivalent (Ofe-JnmNX-QV) vaccine (MENHIBRIX) 10/14/2013 diphtheria tetanus (DT) vaccine, [...] Collected: 03/28/2023 1:39 PM (Final result) Narrative: [facility] [id number] [address] [place] [address] Test Date: 2023-03-28 Pat Name: CELSO WELLER Department: Room: Gender: Female Professional Nursing Assistant: : 1980 Requested By: Order Number: [id number] Reading MD: Letitia Dodge MD Interpretive Statements [...] 17:02:40 EST by Letitia Dodge MD ID: [id number] Name: CELSO WELLER Race: White Ht: 70.87 in Wt: 240.00 lbs Age: 42 Gender: Female : 1980 Dx: Bronchitis, not specified as acute or chronic Smoking Hx: Non-smoker Doctor: DON CHAN Test Date: 03/28/2023 Site: AV Tech: Perla Powell PRE-BRONCH POST-BRONCH Pre LLN [...] 0.73 25 FIVC (L) 2.01 1.98 -1 [id number] (L/sec) 1.76 2.20 3.64 5.38 48 2.24 [...] % 81 FEV1/FVC POST (%) % 84 LLZ23-76% PRE (L/S) L/S 1.76 ZRP48-72% POST (L/S) L/S 2.24 PEF PRE (L/S) [...] stable. ... Recent Results (from the past 69501 hour(s)) ECHO Collection Time: 03/20/23 8:58 AM [...] * Final * * * 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 APRN.TRAINING AND DEVELOPMENT DIRECTOR November 20, 2023 This note was partially generated using [employer] voice recognition system, and there may be some incorrect words, spellings, and punctuation that were not noted in checking the note before saving. documented in this encounterSelect Medical [facility]10-02-2024 History of Present illness Narrative* Gabrielle Zepeda MD - 11/20/2023 9:00 AM EDT Celso Weller is a very pleasant 43 [...] She is often on Benadryl and mucinex withpost nasal drip and chronic cough. She has no HIV risk factors. She smoked from age 18 until 32. 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 Abel the [facility] and she is on duoneb and albuterol [...] obtain her prior chest x-ray results from [facility]. If the broad immunologic workup is unrevealing then it may be reasonable to look into other causes such as chronic lung disease or hypnotics/sedative use or tumor recurrence. documented in this encounterOzarks Community [id number] History of Present illness Narrative* Irene Han APRN.[facility] - 11/14/2023 2:30 PM EDT PALLIATIVE MEDICINE PROGRESS NOTE SERVICE DATE: November 14, 2023 IDENTIFICATION AND INTRODUCTION: Celso Weller is a 43 year old female This visit took place Virtually; I have communicated my name and active licensure. The patient's identity and physical location were verified at the time of this visit. The patient or their legal graphic art sales representative has been informed of the [...] autologous SCT (2013) and several other treatments dueto recurrences in that time. She has undergone [...] control needs. Subjective Hospitalized for pneumonia at [facility]. D/c'ed on 10/31 Levaquin/doxy/steroid taper x 5 [...] OF SYSTEMS: Review of Systems Modified ESAS ([place] Symptom Assessment Scale) Information Provided By: Patient [...] been APPROPRIATELY filled. No suspiciousactivity was identified. 11/14/2023 by Irene Han APRN.TRAINING AND DEVELOPMENT DIRECTOR Urine Screen Lab Results Component Value Date [...] Urine pH, Pain Ocasio 6.3 02/24/2021 Specific [place],Ur Pain Ocasio 1.012 02/24/2021 [place],Ur 46 02/24/2021 [...] pain. We have tapered, awaiting pain management evaluationon 11/27 to see if interventional procedures are [...] tolerate oral hydrocortisone. - missed endocrinology appointment / hospitalization. She will call to reschedule. - [...] Medicine Nurse to do telephonic follow-up: No Irene Han APRN.PEDRO November 14, 2023 2:10 PM This note may have been partially generated using the [employer] voice recognition system. While every effort was made to correct voice recognition errors, kindly be aware that some errors may occasionally occur. documented in this encounterSelect Medical [facility]09-25-2024 Telephone encounter Note * Telephone Encounter - Kylie Mosher RN - 11/13/2023 8:28 AM EDT Palliative Medicine Care Coordination Follow up Phone Call Telephone call to Celso Weller with no answer, left voicemail regarding her last appt was 10/16 withthe plan to wean off the oxycodone. Let her know refill denied and to call back if she has any questions. Call back information given. Kylie Mosher RN November 13, 2023 8:39 AM [facility]09-25-2024 Miscellaneous Notes* Telephone Encounter - Kylie Mosher RN - 11/13/2023 8:28 AM EDT Palliative Medicine Care Coordination Follow up Phone Call Telephone call to Celso Pacheco Janee with no answer, left voicemail regarding her last appt was 10/16 withthe plan to wean off the oxycodone. Let her know refill denied and to call back if she has any questions. Call back information given. Kylie Mosher RN November 13, 2023 8:39 AM * Telephone Encounter - Irene Han APRN.CNP - 11/13/2023 8:21 AM EDT Last pall care visit 10/16 at which time we weaned oxycodone and stopped completely. Please call to discuss with patient. * Telephone Encounter - Kylie Mosher RN - 11/12/2023 4:13 PM EDT Patient Mycharts requesting refills as follows: Last ordered 10/17/2023. Next scheduled follow up appointment 11/14/2023. Requested Prescriptions Pending Prescriptions Disp Refills oxyCODONE IR (ROXICODONE) 10 mg tab 42 tablet 0 Sig: Take 1 tablet by mouth two times a day for 14 days, THEN 0.5 tablets two times a day for 14 days. Kylie Mosher RN November 12, 2023 documented in this encounterSelect Medical [facility]09-25-2024 Telephone encounter Note * Telephone Encounter - Irene Han APRN.CNP - 11/13/2023 8:21 AM EDT Last [facility] care visit 10/16 at which time we weaned oxycodone and stopped completely. Please call to discuss with patient. [facility]-24-2024 Telephone encounter Note* Telephone Encounter - Kylie Mosher RN - 11/12/2023 4:13 PM EDT Patient Mycharts requesting refills as follows: Last ordered 10/17/2023. Next scheduled follow up appointment 11/14/2023. Requested Prescriptions Pending Prescriptions Disp Refills oxyCODONE IR (ROXICODONE) 10 mg tab 42 tablet 0 Sig: Take 1 tablet by mouth two times a day for 14 days, THEN 0.5 tablets two times a day for 14 days. Kylie Mosher RN November 12, 2023 [facility]-2024 History of Present illness Narrative* Ellyn Lopez APRN.PEDRO - 11/11/2023 10:51 AM EDT PATIENT NAME: Celso Weller DATE: 11/11/2023 PRIMARY CARE PHYSICIAN: Bee Vail MD OTHER PHYSICIANS: Dr. Cyn Hernandez; Dr. Gurpreet Unger; Irene Han CNP ([facility] Pall Med), Dr. Jane Del Valle ([facility] Rad Onc), Dr. Jani Becerril ([facility] Pulmonary), Dr Radha Gamez ([facility] Dermatology) Portions of this encounter note [...] she was scheduled an appointment with and glass laminating operator and starch cooker. She currently denies any fevers, chills, night [...] has had recurrent pulmonary symptoms. Predominantly she hasintermittent fevers with progressive cough and shortness of [...] two times a day as needed for musclespasm. gabapentin (NEURONTIN) 300 mg capsule Take 2 capsules by mouth three times a day for 90 days. escitalopram oxalate (LEXAPRO) 10 mg tablet Take 0.5 tablets by mouth once daily. (Patient taking differently: Take 10 mg by mouth once daily.) albuterol-budesonide HFA (AIRSUPRA) 90-80 mcg/actuation inhaler Take 2 Puffs by mouth every 4 hoursas needed for wheezing/shortness of breath. Do not take more than 12 inhalations in a 24 hour period. icljduzezpi-bmelsnrwm-bayerlzw (TRELEGY ELLIPTA) 200-62.5-25 mcg inhalation powder Inhale 1 Puff asinstructed once daily. ipratropium-albuterol (DUONEB) 0.5 mg-3 mg(2.5 [...] C No.3 (B COMPLEX PLUS VITAMIN C) 62-42-49-5-300 mg cap Take 1 tablet by mouth [...] FDG avid neoplastic process. 04/02/2023 Chest x-ray ([facility]) Airspace opacities in the medial lungs [...] mid abdominal pain, and was found to haveprogressive disease in the right mesenteric area. She received palliative radiation therapy to her abdomen 04/02/2022 through 04/06/2022. She last received pembrolizumab on 05/01/2022. Follow-up PET scans have remained negative, most recently 05/20/2023. At this time we will continue close observation. Return in 3 months for follow- up and labs. Unless new symptoms develop we [...] medication. At this time we will monitor closely,and reconsider intervention if symptoms worsen. 11. Chronic fatigue, anxiety and depression The patient has a long history of chronic fatigue, most likely related to her underlying disease, extensive prior treatment, and multiple medications. As a result she has secondary anxiety and depression. Continue management per PCP/[facility] palliative medicine. Ellyn Lopez APRN.PEDRO I spent a total of 30 minutes on the date of the service which included preparing to see the patient, qcbu-pr-mktf patient care, completing clinical documentation, obtaining and/or reviewing separately obtained history, performing a medically appropriate examination, counseling and educating the pat ient/family/caregiver, ordering medications, tests, or procedures, communicating with other HCPs (not separately reported), communicating results to the patient/family/caregiver, and care coordination (not separately reported). documented in this encounterSelect Medical [facility]-2024 Telephone encounter Note * Telephone Encounter - Leatha Abarca MA - 11/08/2023 10:56 AM EDT Patient has an appt on 11/11/23 Would you like labs, if so place orders. Leatha Abarca MA [facility]09-20-2024 Miscellaneous Notes* Telephone Encounter - Leatha Pyle MA - 11/08/2023 10:56 AM EDT Patient has an appt on 11/11/23 Would you like labs, if so place orders. Leatha Abarca MA documented in this encounterSelect Medical [facility]09-18-2024 History of Present illness Narrative* Sheila Lin NP - 11/06/2023 10:00 AM EDT Images from the original note were not included. Subjective Patient ID: Celso Weller is a 43 y.o. female who presents for Hospital Follow-up. 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 Scanned and routed for review. [facility] [id number] Miscellaneous Notes* Telephone Encounter - Kaia Mandujano MA - 11/05/2023 9:05 AM EDT ER Summary report, cmp, cbc, CT chest and chest xray report printed from [facility]. Scanned and routed for review. * Telephone Encounter - Sheila Lin NP - 11/05/2023 8:48 AM EDT Please contact [facility] for Discharge summary Pt admitted 10/28-10/31/2023 documented in this encounterOzarks Community [id number] Telephone encounter Note* Telephone Encounter - Sheila Lin NP - 11/05/2023 8:48 AM EDT Please contact [facility] for Discharge summary Pt admitted 10/28-10/31/2023 [facility] HospitalEztjnijaiu10-15-4608 Telephone encounter Note* Telephone Encounter - Bernardo Blakely - 10/29/2023 11:34 AM EDT Called and spoke to patient. She went to the ER, will update care team on her condition. [facility]09-10-2024 Miscellaneous Notes* Telephone Encounter - Bernardo Blakely - 10/29/2023 11:34 AM EDT Called and spoke to patient. She went to the ER, will update care team on her condition. * Telephone Encounter - Noa Schwab - 10/29/2023 10:34 AM EDT 1st attempt Lvm to schedule follow up with first available provider, 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 is now available at [facility] October 29, 2023 documented in this encounterSelect Medical [facility] Telephone encounter Note * Telephone Encounter - Noa Schwab - 10/29/2023 10:34 AM EDT 1st attempt Lvm to schedule follow up with first available provider, 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 is now available at [facility] October 29, 2023 [facility]08-30-2024 History of Present illness Narrative* Landy Lopez - 10/18/2023 11:25 AM EDT POPULATION HEALTH NAVIGATION OUTREACH Action/FYI Patient scheduled Reason for Outreach Care Gap/HCC or Scheduling Wellness Visits Care Gaps due: Specialty Scheduling Patient Contacted: Spoke to patient/parent/or legal guardian Patient identified by name and : Yes Care Gap/HCC/Scheduling Wellness actions taken: Patient scheduled/pended labs: Specialty Appointment Navigation Signature: Landy Lopez October 18, 2023 11:25 AM documented in this encounterSelect Medical [facility]08-29-2024 History of Present illness Narrative* Irene Han APRN.TRAINING AND DEVELOPMENT DIRECTOR - 10/17/2023 10:00 AM EDT PALLIATIVE MEDICINE PROGRESS NOTE SERVICE DATE: 10/17/2023 CHIEF COMPLAINT: follow up pain PERTINENT MEDICAL HISTORY: Celso Weller is a 43 yo female with a history of psoriatic arthritis and Hodgkin's Lymphoma diagnosed 01/16/2012 s/p autologous SCT (2013) and several other treatments dueto recurrences in that time. She has undergone [...] feet, knees, SI Joint. Osteoarthritis. Modified ESAS ([place] Symptom Assessment Scale) Information Provided By: Patient [...] (97 F) (Temporal) Resp 16 LMP 11/18/2012 ApY459% Last 1 Encounter Temp Readings: Date: Temp: [...] been APPROPRIATELY filled. No suspiciousactivity was identified. 10/17/2023 by Irene Han APRN.TRAINING AND DEVELOPMENT DIRECTOR Urine Screen Lab Results Component Value Date [...] Urine pH, Pain Ocasio 6.3 02/24/2021 Specific [place],Ur Pain Ocasio 1.012 02/24/2021 Oxidants,Ur 46 02/24/2021 [...] sleep) managed by PCP - Alli Nunez d/rayshawn - previously discussed duloxetine for co management [...] and all reflect currentdecision making from today, 10/17/2023. Next Visit: 4 Weeks via a virtual visit Irene Han APRN.CNP October 17, 2023 7:34 AM This note may have been partially generated using the [employer] voice recognition system. While every effort was made to correct voice recognition errors, kindly be aware that some errors may occasionally occur. documented in this encounterSelect Medical [facility]08-27-2024 Procedure note* Anh Weber RRT - 10/15/2023 10:45 AM EDTAssociated Order(s): OXIMETRY WITH AMBULATION RESPIRATORY THERAPY OXIMETRY WITH [...] October 15, 2023 TIME: 10:45 AM Comment: [facility]-27-2024 History of Present illness Narrative* Anh Weber RRT - 10/15/2023 10:45 AM EDT PULM FUNCTION: Provider: Carole Ruano APRN.TRAINING AND DEVELOPMENT DIRECTOR Oximetry - Ambulation: 1 documented in this encounterSelect Medical [facility]08-27-2024 Procedure note* Anh Weber RRT - 10/15/2023 10:45 AM EDTAssociated Order(s): OXIMETRY WITH AMBULATION RESPIRATORY THERAPY OXIMETRY WITH [...] TIME: 10:45 AM Comment: documented in this encounterSelect Medical [facility]08-22-2024 Telephone encounter Note * Telephone Encounter - Bee Vail MD - 10/10/2023 7:09 AM EDT Rx sent in [facility] [id number] Miscellaneous Notes* Telephone Encounter - Bee Vail MD - 10/10/2023 7:09 AM EDT Rx sent in documented in this encounterOzarks Community [id number] History of Present illness Narrative* Yasmeen Fine RT(R) - 10/09/2023 12:11 PM EDT Radiology Service Progress Note PATIENT [...] PATIENT PRESENTS WITH AN IMPLANTABLE OR ATTACHED CARCASS TRIMMER: No RADIOLOGY DEPARTMENT: General X-ray: Exam(s) Completed: Pelvis X-Ray: sacroiliac joints Lower Extremity X-Ray(s): Knee, AP / Lat / Tunne / Merchant Bilateral and Wt. Bearing and Foot, Bilateral and Wt. Bearing Upper Extremity X-Ray(s): Hand, bilateral PERIPHERAL IV DATA: Not applicable SIGNED BY: RT Fang(R) October 09, 2023 12:11 PM documented in this encounterSelect Medical [facility]08-21-2024 History of Present illness Narrative* Simin Brandt MD - 10/09/2023 11:00 AM EDT Images from the original note were not included. Rheumatology Outpatient Clinic Date of Service: 10/09/2023 Patient: Celso Weller Medical Record: [id number] Primary Care Physician: Bee Vail MD Referring Provider: Irene Han [address] [place] [id number] Last Rheumatology visit: 06/09/2015 (with Yun Garcia) Chief complaint: New Patient Evaluation (PsA) Consultation requested by Irene Han APRN.CNP for an opinion regarding psoriatic arthritis. My final recommendations will be communicated back tothe requesting physician by way of shared Medical [...] 10/09/2023 for an in-person visit for evaluation ofNew Patient Evaluation (PsA). Celso is both RF [...] chemotherapy. History of psoriasis Pso diagnosed in 2019 after skin biopsy, on topicals, rash is [...] Sclerosis Mother Coronary Artery Disease Maternal Grandfather [place] age 36 Coronary Artery Disease Paternal Grandfather [...] two times a day as needed for musclespasm. oxyCODONE IR (ROXICODONE) 10 mg tab Take [...] Take 2 Puffs by mouth every 4 hoursas needed for wheezing/shortness of breath. Do not take more than 12 inhalations in a 24 hour period. rvxyxgflwko-ukygabchw-qjarhwcn (TRELEGY ELLIPTA) 200-62.5-25 mcg inhalation powder Inhale 1 Puff asinstructed once daily. ipratropium-albuterol (DUONEB) 0.5 mg-3 mg(2.5 [...] C No.3 (B COMPLEX PLUS VITAMIN C) 25-23-96-5-300 mg cap Take 1 tablet by mouth [...] 42 Sm Antibody <1.0 AI <0.2 Ribosomal RESEARCH METHODS INSTRUCTOR <1.0 AI <0.2 Chromatin Antibody <1.0 AI <0.2 SSA Antibody <1.0 AI <0.2 SSB Antibody <1.0 AI <0.2 RESEARCH METHODS INSTRUCTOR Antibody <1.0 AI <0.2 Scleroderma Ab, IgG [...] 03/11/2014, 12/21/2013, 10/14/2013 Haemophilus influenzae b-meningococcal bivalent (Iio-MywLK-MM) vaccine 10/14/2013 diphtheria tetanus (DT) vaccine, pediatric [...] effusion. No tenderness to palpation along the jointline, medial/lateral malleolus, ATFL, PTFL, CFL, or Achilles [...] feet, knees, SI joint Recommend follow-up with draw string knotter since her psoriasis seem to be active over scalp despite using topical medications 2. Sicca symptoms Patient denies significant sicca symptoms She is also on multiple medications that can contribute to sicca symptoms, history of radiation canbe contributing as well Noted negative SSA/SSB Noted [...] which included preparing to see the patient, thcf-ag-ioqi patient care, completing clinical documentation, obtaining and/or reviewing separately obtained history, performing a medically appropriate examination, counseling and educating the pat ient/family/caregiver, and ordering medications, tests, or procedures. This note was partially generated with the assistance of [employer] voice recognition software. An attempt was made to correct any dictation errors however there may be some incorrect words, spellings, and punctuation. Simin Brandt MD [facility] Rheumatology Associate Staff [facility] Branch Specialistclient finance analyst [facility] documented in this encounterSelect Medical [facility]08-12-2024 Telephone encounter Note * Telephone Encounter - Kylie Mosher RN - 09/30/2023 1:24 PM EDT Duplicate refill request. Sent in separate refill encounter. Kylie Mosher RN September 30, 2023 1:25 PM [facility]08-12-2024 Miscellaneous Notes* Telephone Encounter - Kylie Mosher RN - 09/30/2023 1:24 PM EDT Duplicate refill request. Sent in separate refill encounter. Kylie Mosher RN September 30, 2023 1:25 PM documented in this encounterSelect Medical [facility]08-12-2024 Telephone encounter Note * Telephone Encounter - Kylie Mosher RN - 09/30/2023 1:19 PM EDT Patient Mycharts requesting refills as follows: Last [...] Please review and advise. Kylie Mosher RN [facility]08-12-2024 Miscellaneous Notes* Telephone Encounter - Kylie Mosher RN - 09/30/2023 1:19 PM EDT Patient Mycharts requesting refills as follows: Last [...] advise. Kylie Mosher RN documented in this encounterSelect Medical [facility]08-07-2024 Telephone encounter Note * Telephone Encounter - rIene Han APRN.CNP - 09/25/2023 4:13 PM EDT No longer taking baclofen [facility]08-07-2024 Miscellaneous Notes* Telephone Encounter - Irene Han APRN.CNP - 09/25/2023 4:13 PM EDT No longer taking baclofen * Telephone Encounter - Kylie Mosher RN - 09/25/2023 8:51 AM EDT Pharmacy requesting refills as follows: Last ordered 05/07/2023. Next scheduled follow up appointment 10/17/2023. Requested Prescriptions Pending Prescriptions Disp Refills baclofen 5 mg tablet [Pharmacy Med Name: BACLOFEN 5 MG TABLET] 90 tablet 2 Sig: take 1 tablet by mouth three times a day Kylie Mosher RN September 25, 2023 documented in this encounterSelect Medical [facility]08-07-2024 Telephone encounter Note * Telephone Encounter - Kylie Mosher RN - 09/25/2023 8:51 AM EDT Pharmacy requesting refills as follows: Last ordered 05/07/2023. Next scheduled follow up appointment 10/17/2023. Requested Prescriptions Pending Prescriptions Disp Refills baclofen 5 mg tablet [Pharmacy Med Name: BACLOFEN 5 MG TABLET] 90 tablet 2 Sig: take 1 tablet by mouth three times a day Kylie Mosher RN September 25, 2023 [facility]08-01-2024 History of Present illness Narrative* Irene Han, LORY.TRAINING AND DEVELOPMENT DIRECTOR - 09/19/2023 10:00 AM EDT PALLIATIVE MEDICINE PROGRESS NOTE SERVICE DATE: September 19, 2023 IDENTIFICATION AND INTRODUCTION: Celso Weller is a 43 year old female This visit took place Virtually; I have communicated my name and active licensure. The patient's identity and physical location were verified at the time of this visit. The patient or their legal graphic art sales representative has been informed of the [...] autologous SCT (2013) and several other treatments dueto recurrences in that time. She has undergone [...] In the process of of changing antidepressant (currentlytaking half dose of remeron and half dose [...] OF SYSTEMS: Review of Systems Modified ESAS ([place] Symptom Assessment Scale) Information Provided By: Patient Pain: Moderate Nausea: Mild Loss of Appetite: Mild Constipation: None Shortness of Breath: Moderate Drowsiness: None Tiredness: Moderate Depression: Mild Anxiety: Moderate How you feel overall: Fair Objective PHYSICAL EXAMINATION: [facility] 11/18/2012 Physical Exam Constitutional: General: [...] been APPROPRIATELY filled. No suspiciousactivity was identified. 09/19/2023 by Irene Han APRN.TRAINING AND DEVELOPMENT DIRECTOR Urine Screen Lab Results Component Value Date [...] Urine pH, Pain Ocasio 6.3 02/24/2021 Specific [place],Ur Pain Ocasio 1.012 02/24/2021 Oxidants,Ur 46 02/24/2021 [...] such side effects. She is agreeable. (She isnow off baclofen, weaned other medications as below) - continue cyclobenzaprine 10 mg BID PRN for muscle cramps (has recently been taking only PRN per her report) - continue oxycodone 10 mg Q8H PRN with the intention to continue to wean as able (counseled on useof benzo and opioids together and increased risk [...] sleep) managed by PCP - Alli Nunez d/rayshawn - previously discussed duloxetine for co management [...] tolerate oral hydrocortisone. - missed endocrinology appointment / hospitalization. She will call to reschedule. - [...] Medicine Nurse to do telephonic follow-up: No [employer]: per oncology SW Irene Han APRN.PEDRO September 19, 2023 6:35 AM This note may have been partially generated using the [employer] voice recognition system. While every effort was made to correct voice recognition errors, kindly be aware that some errors may occasionally occur. documented in this encounterSelect Medical [facility]07-31-2024 Instructions* Patient Instructions* Anil Franco PA-C - 09/18/2023 9:31 AM EDT Voice eval and therapy with Viridiana Jimenez, Sheila Ribeiro, Lee Zendejas, or Destiny Howard. documented in this encounterSelect Medical [facility]07-31-2024 History of Present illness Narrative* Anil Franco PA-C - 09/18/2023 9:25 AM EDT Images from the original note were not included. [facility] [place] FOLLOW-UP CLINIC NOTE CC: Ms. Weller is a 43 year old female who comes in for follow up. Patient was last seen on 05/22/2023with plan of care: ASSESSMENT: Dysphagia, unspecified type [...] clinically indicated. May consider consult to GI, GAS BRAZER Anil Franco PA-C Comprehensive ENT ASSESSMENT: Dysphagia, unspecified type (primary encounter diagnosis) Hoarseness Lprd (laryngopharyngeal reflux disease) PLAN: - Reviewed and discussed results of MBS, XR esophagram with patient; all patient questions answered. Discussed MBS findings and recommendations with GAS BRAZER Cynthia Guajardo CCC-GAS BRAZER via [employer] staff message. - Consult to GAS BRAZER for voice therapy, per patient request - [...] evaluation in ER - Follow up after GAS BRAZER, GI evaluations; sooner if clinically indicated Anil [...] developing pulmonary complications related to swallowing abilities. GAS BRAZER provided reflux precaution handout and contact information to schedule esophagram. GAS BRAZER recommends follow up with GI given noted esophageal retention, symptoms, and history of radiation to chest area. Patient may also benefit from outpatient voice therapy-ENT PA updated. HPI 05/22/2023: 42 year old female presents to clinic for evaluation of dysphagia, unspecified type and hoarseness.Patient reports 1.5+ years of hoarseness. Patient was [...] and she has to focus on act ofswallowing. Patient endorses chronic cough, nonproductive as well as PND, globus sensation. Patientwas placed on Astelin due to concern for PND contributing to sore throat with mild relief. However,side effects of significant dryness, oral dryness so [...] Take 2 Puffs by mouth every 4 hoursas needed for wheezing/shortness of breath. Do not take more than 12 inhalations in a 24 hour period. oxyCODONE IR (ROXICODONE) 10 mg tab Take 1 tablet by mouth every 8 hours as needed for pain for up to 30 days. balvdahtgxq-eccomymvs-qsxkpwhb (TRELEGY ELLIPTA) 200-62.5-25 mcg inhalation powder Inhale 1 Puff asinstructed once daily. ipratropium-albuterol (DUONEB) 0.5 mg-3 mg(2.5 [...] two times a day as needed for musclespasm. pantoprazole DR (PROTONIX) 40 mg tablet Take 1 tablet by mouth once daily. Vitamin B Comp and C No.3 (B COMPLEX PLUS VITAMIN C) 82-32-15-5-300 mg cap Take 1 tablet by mouth [...] Sclerosis Mother Coronary Artery Disease Maternal Grandfather [place] age 36 Coronary Artery Disease Paternal Grandfather [...] - otalgia, - ear pressure, - ear congestion,- otorrhea, - itching, - autophony, - ear [...] Level: 3 - Low documented in this encounterSelect Medical [facility]-2024 Telephone encounter Note * Telephone Encounter - Irene Kerr - 09/16/2023 9:04 AM EDT Spoke with patient on 09/16/2023. Patient is rescheduled for her visit. [facility]07-29-2024 Miscellaneous Notes* Telephone Encounter - Irene Kerr - 09/16/2023 9:04 AM EDT Spoke with patient on 09/16/2023. Patient is rescheduled for her visit. documented in this encounterSelect Medical [facility]20[facility] Telephone encounter Note * Telephone Encounter - Kylie Mosher RN - 08/29/2023 4:17 PM EDT Palliative Medicine Care Coordination Follow up Phone Call Patient identified by name and : Yes Spoke to: [facility] pharmacy and patient Nurse calling to follow up on refill of oxycodone per patient's concerns. . Patient called concerned because [facility] saying her oxycodone was too early to fill. She said we discussed last week she was leaving for vacation Tuesday 08/29 which is tomorrow until 09/10. Caitlin VASQUEZ covering for Irene PEDRO Han did put in a new prescription 08/25 to [facility]. Spoke with pharmacy and they havenot filled this for patient before and were [...] ok with this and will wait for [facility] to contact her. Kylie Mosher RN August 29, 2023 4:35 PM [facility]2024 Miscellaneous Notes* Telephone Encounter - Kylie Mosher RN - 08/29/2023 4:17 PM EDT Palliative Medicine Care Coordination Follow up Phone Call Patient identified by name and : Yes Spoke to: [facility] pharmacy and patient Nurse calling to follow up on refill of oxycodone per patient's concerns. . Patient called concerned because [facility] saying her oxycodone was too early to fill. She said we discussed last week she was leaving for vacation Tuesday 08/29 which is tomorrow until 09/10. Caitlin VASQUEZ covering for Irene Han CNP did put in a new prescription 08/25 to [facility]. Spoke with pharmacy and they havenot filled this for patient before and were [...] ok with this and will wait for [facility] to contact her. Kylie Mosher RN August 29, 2023 4:35 PM documented in this encounterSelect Medical [facility]07-[facility]-2024 History of Present illness Narrative* Sherly Hansen PA-C - 08/27/2023 8:16 AM EDT Associated Order(s): Additional Injections: R extensor compartment [...] Quervain's tenosynovitis Informed Consent Consent Obtained: Verbal [place] Protocol A moment to CARE was completed. [...] needed Sherly Hansen PA-C documented in this encounterSelect Medical [facility]07-08-2024 Telephone encounter Note * Telephone Encounter - Kylie Mosher RN - 08/26/2023 1:15 PM EDT Patient requesting refills. She is leaving Tuesday 08/29 through 09/10 and only got 70 tablets last fill. Confirmed [facility] pharmacy Last ordered 08/06/2023 by Irene Han CNP Next scheduled follow up appointment 09/16/2023. Requested Prescriptions Pending Prescriptions Disp Refills oxyCODONE IR (ROXICODONE) 10 mg tab 90 tablet 0 Sig: Take 1 tablet by mouth every 8 hours as needed for pain for up to 30 days. Kylie Mosher RN August 26, 2023 [facility]07-08-2024 Miscellaneous Notes* Telephone Encounter - Kylie Mosher RN - 08/26/2023 1:15 PM EDT Patient requesting refills. She is leaving Tuesday 08/29 through 09/10 and only got 70 tablets last fill. Confirmed [facility] pharmacy Last ordered 08/06/2023 by Irene Han CNP Next scheduled follow up appointment 09/16/2023. Requested Prescriptions Pending Prescriptions Disp Refills oxyCODONE IR (ROXICODONE) 10 mg tab 90 tablet 0 Sig: Take 1 tablet by mouth every 8 hours as needed for pain for up to 30 days. Kylie Mosher RN August 26, 2023 documented in this encounterSelect Medical [facility]-2024 Telephone encounter Note * Telephone Encounter - Renetta Cuellar MA - 08/14/2023 8:27 AM EDT Last ov- 08/06/23 Next OV- 09/26/23 Patient [...] Please review and advise. Renetta Cuellar MA [facility]06-26-2024 Miscellaneous Notes* Telephone Encounter - Renetta Cuellar MA - 08/14/2023 8:27 AM EDT Last ov- 08/06/23 Next OV- 09/26/23 Patient requests via [employer] refills as follows: Requested Prescriptions Pending Prescriptions Disp Refills ipratropium-albuterol (DUONEB) 0.5 mg-3 mg(2.5 mg base)/3 mL nebu 1620 mL 2 Sig: inhale contents of 1 vial ( 3 MILLILITERS ) in nebulizer by mouth and INTO THE LUNGS every 6 hours if needed for wheezing or shortness of breath Please review and advise. Renetta Cuellar MA documented in this encounterSelect Medical [facility]06-[facility]-2024 History of Present illness Narrative* Irene Han APRN.TRAINING AND DEVELOPMENT DIRECTOR - 08/12/2023 2:30 PM EDT PALLIATIVE MEDICINE PROGRESS NOTE SERVICE DATE: August 12, 2023 IDENTIFICATION AND INTRODUCTION: Celso Weller is a 43 year old female This visit took place Virtually; I have communicated my name and active licensure. The patient's identity and physical location were verified at the time of this visit. The patient or their legal graphic art sales representative has been informed of the [...] autologous SCT (2013) and several other treatments dueto recurrences in that time. She has undergone [...] OF SYSTEMS: Review of Systems Modified ESAS ([place] Symptom Assessment Scale) Information Provided By: Patient Pain: Mild Nausea: None Loss of Appetite: None Constipation: None Shortness of Breath: Mild Drowsiness: None Tiredness: Moderate Depression: None Anxiety: Moderate How you feel overall: Fair Objective PHYSICAL EXAMINATION: [facility] 11/18/2012 Physical Exam Constitutional: General: [...] been APPROPRIATELY filled. No suspiciousactivity was identified. 08/12/2023 by Irene Han APRN.TRAINING AND DEVELOPMENT DIRECTOR Urine Screen Lab Results Component Value Date [...] Urine pH, Pain Ocasio 6.3 02/24/2021 Specific [place],Ur Pain Ocasio 1.012 02/24/2021 Oxidants,Ur 46 02/24/2021 [...] which included preparing to see the patient, lpdw-lw-qiwl patient care, completing clinical documentation, and counseling and educating the patient/family/caregiver. Some elements copied from my note on 07/11/23, the elements have been updated and all reflect current decision making from today, 08/12/2023. Next Visit: 4 Weeks via virtual visit Palliative Medicine Nurse to do telephonic follow-up: No [employer] Services: None at this time Irene Han APRN.CNP August 12, 2023 1:35 PM This note may have been partially generated using the [employer] voice recognition system. While every effort was made to correct voice recognition errors, kindly be aware that some errors may occasionally occur. documented in this encounterSelect Medical [facility] History of Present illness Narrative* Carole Ruano APRN.CNP - 08/06/2023 7:13 AM EDT Images from the original note were not included. . [facility] PULMONARY DEPARTMENT Follow-Up Clinic Note Ms. Weller is a 43 year old female who [facility] the [facility] [place] for follow up of pneumonia. Patient's primary client service administrator is Dr. Becerril. Last office visit was 06/28/23. 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 Former smoker. INTERVAL HPI/ROS Today Celso Wellre is here to follow up on recent hospitalization for pneumonia 07/31/23-08/01/23. She started to feel chills and run down last week. Temp was 100.9, then 102.9 after acetaminophen on Saturday. Blood-tinged sputum with dark clots, which turned to bright red blood after discharge. SpO2 86% on room air. She was admitted to [facility] overnight for pneumonia. (Image request sent.) She was treated with IV Rocephin and steroids. She was discharged home with Levaquin x 10 days andprednisone taper starting at 60 mg. Shortness of [...] 5 tablets zuri... (REFER TO PRESCRIPTION NOTES). kxjbnvrsnkr-wwayrqzvn-pxmbooku (TRELEGY ELLIPTA) 200-62.5-25 mcg inhalation powder Inhale 1 Puff asinstructed once daily. ipratropium-albuterol (DUONEB) 0.5 mg-3 mg(2.5 [...] two times a day as needed for musclespasm. levoFLOXacin (LEVAQUIN) 750 mg tablet Take 1 [...] C No.3 (B COMPLEX PLUS VITAMIN C) 43-94-48-5-300 mg cap Take 1 tablet by mouth [...] cooperative. DIAGNOSTICS Testing I Reviewed Today: See [employer] for all available results and images. PFT/Procedures No new results. Imaging Image/report request sent x 2 to [facility] for CXR results from 08/01/23. Recent [...] Lymph 1.00 - 4.00 k/uL 2.35 Abs Nuckolls <0.87 k/uL 0.84 Abs Eosin <0.46 k/uL [...] laterality, unspecified part of lung - ICD9: 486,ICD10: J18.9 (primary diagnosis) Pulmonary hypertension (HCC) - [...] continue to work on getting images/reports from [facility] for comparison. - OXIMETRY WITH AMBULATION prior to next visit (when off prednisone) to reassess need for supplemental oxygen with exertion. - - Patient previously returned her oxygen to the [employer]. - Let me know if you feel your symptoms start to worsen again, or do not return to your usual baseline after completing antibiotics/steroids. Follow up with Dr. Becerril in September as already scheduled, and as needed. Patient instructed to call our office, PCP, or go to the emergency department for new or worsening problems or symptoms. I spent a total of 38 minutes on the date of the service which included preparing to see the patient, brbw-be-nyrn patient care, completing clinical documentation, obtaining and/or reviewing separately obtained history, performing a medically appropriate examination, counseling and educating the pat ient/family/caregiver, and ordering medications, tests, or procedures. Carole Ruano DNP, ACCOUNT SERVICES ASSOCIATE-TRAINING AND DEVELOPMENT DIRECTOR [facility] [place] documented in this encounterSelect Medical [facility]06-18-2024 Telephone encounter Note * Telephone Encounter - Irene Han APRN.CNP - 08/06/2023 6:41 AM EDT PDMP website checked and validated. All prescriptions have been APPROPRIATELY filled. No suspiciousactivity was identified. 08/06/2023 by Irene Han APRN.CNP Rx sent Irene Han APRN.CNP [facility]06-18-2024 Miscellaneous Notes* Telephone Encounter - Irene Han APRN.PEDRO - 08/06/2023 6:41 AM EDT PDMP website checked and validated. All prescriptions have been APPROPRIATELY filled. No suspiciousactivity was identified. 08/06/2023 by Irene Han APRN.TRAINING AND DEVELOPMENT DIRECTOR Rx sent Irene Han APRN.TRAINING AND DEVELOPMENT DIRECTOR * Telephone Encounter - Kylie Mosher RN - 08/05/2023 4:41 PM EDT Patient Mycharts requesting refills as follows: Last [...] RN August 05, 2023 documented in this encounterSelect Medical [facility]06-17-2024 Telephone encounter Note * Telephone Encounter - Kylie Mosher RN - 08/05/2023 4:41 PM EDT Patient Mycharts requesting refills as follows: Last [...] days. Kylie Mosher RN August 05, 2023 [facility]06-[facility]24 Telephone encounter Note* Telephone Encounter - Irene Kerr - 08/05/2023 9:55 AM EDT She preferred to come into the office to see you. [facility] Miscellaneous Notes* Telephone Encounter - Irene Kerr - 08/05/2023 9:55 AM EDT She preferred to come into the office to see you. * Telephone Encounter - Irene Kerr - 08/05/2023 9:13 AM EDT Spoke with patient on 08/05/2023. Patient is rescheduled accordingly. documented in this encounterSelect Medical [facility]06-17-2024 Telephone encounter Note * Telephone Encounter - Irene Kerr - 08/05/2023 9:13 AM EDT Spoke with patient on 08/05/2023. Patient is rescheduled accordingly. [facility] History of Present illness Narrative* Ruperto Ledezma MD - 08/04/2023 9:12 PM EDT PATIENT NAME: Celso Weller DATE: 08/05/2023 PRIMARY CARE PHYSICIAN: Bee Vail MD OTHER PHYSICIANS: Dr. Cyn Hernandez; Dr. Gurpreet Unger; Irene Han, PEDRO ([facility] Pall Med), Dr. Jane Del Valle ([facility] Rad Onc), Dr. Jani Becerril ([facility] Pulmonary), Dr Radha Gamez ([facility] Dermatology) Portions of this encounter note [...] 10 days plus a tapering dose of prednisone.With this her acute symptoms have improved. Otherwise she has had no significant medical changes. She remains extremely anxious and somewhat depressed in regards to her medical condition. No recent night sweats or weight loss. No unusual pain. MEDICATIONS: cyclobenzaprine (FLEXERIL) 10 mg tablet Take 1 tablet by mouth two times a day as needed for musclespasm. diclofenac (VOLTAREN) 1 % topical gel Apply 4 g to affected area four times daily. oxyCODONE IR (ROXICODONE) 10 mg tab Take 1 tablet by mouth every 8 hours as needed for pain for up to 30 days. xkldrxwmdlb-owzoehcxe-zvzmkqes (TRELEGY ELLIPTA) 200-62.5-25 mcg inhalation powder Inhale 1 Puff asinstructed once daily. ipratropium-albuterol (DUONEB) 0.5 mg-3 mg(2.5 [...] C No.3 (B COMPLEX PLUS VITAMIN C) 63-45-01-5-300 mg cap Take 1 tablet by mouth [...] FDG avid neoplastic process. 04/02/2023 Chest x-ray ([facility]) Airspace opacities in the medial lungs [...] mid abdominal pain, and was found to haveprogressive disease in the right mesenteric area. She received palliative radiation therapy to her abdomen 04/02/2022 through 04/06/2022. She last received pembrolizumab on 05/01/2022. Follow-up PET scans have remained negative, most recently 05/20/2023. At this time we will continue close observation. Return in 3 months for follow- up and labs. Unless new symptoms develop we [...] medication. At this time we will monitor closely,and reconsider intervention if symptoms worsen. 11. Chronic fatigue, anxiety and depression The patient has a long history of chronic fatigue, most likely related to her underlying disease, extensive prior treatment, and multiple medications. As a result she has secondary anxiety and depression. Continue management per PCP/[facility] palliative medicine. Ruperto Ledezma MD documented in this encounterSelect Medical [facility]06-13-2024 Telephone encounter Note * Telephone Encounter - Noa Schwab - 08/01/2023 11:42 AM EDT 1st attempt LVM to schedule appointment, Noa Schwab August 01, 2023 [facility]06-13-2024 Miscellaneous Notes* Telephone Encounter - Noa Schwab - 08/01/2023 11:42 AM EDT 1st attempt LVM to schedule appointment, Noa Schwab August 01, 2023 * Telephone Encounter - Carole Ruano APRN.CNP - 08/01/2023 11:12 AM EDT Please contact Celso Weller to schedule hospital f/u visit with me at her earliest convenience nextweek. Carole Manuel documented in this encounterSelect Medical [facility]06-13-2024 Telephone encounter Note * Telephone Encounter - Carole Ruano APRN.CNP - 08/01/2023 11:12 AM EDT Please contact Celso Weller to schedule hospital f/u visit with me at her earliest convenience nextweek. Carole Manuel [facility]05-31-20[facility] History of Present illness Narrative* Elis Carrera RT(Junior) - 07/19/2023 1:20 PM EDT Radiology Service Progress Note PATIENT [...] PATIENT PRESENTS WITH AN IMPLANTABLE OR ATTACHED CARCASS TRIMMER: No RADIOLOGY DEPARTMENT: General X-ray: Exam(s) Completed: GI/ Procedure(s): Esophogram with barium contrast PERIPHERAL IV DATA: Not applicable SIGNED BY: RT Beverley(Junior) July 19, 2023 1:39 PM documented in this encounterSelect Medical [facility]05-23-2024 Instructions* Patient Instructions* Irene Han APRN.CNP - 2023 10:48 AM EDT Irene Han CNP Department of Palliative and Supportive Care Palliative Care - Specialty services in symptom management and support For questions or prescription refills, call: [phone] Saturday - Saturday 9AM-5PM ERVIN Corrales, RN - Autoclave Operator Please call 3-5 days in advance for medication refills Evenings, Weekends, Holidays: [phone] (ask for palliative medicine on-call provider) For appointments, cancellations or reschedule, call: [phone] documented in this encounterSelect Medical [facility]05-23-2024 History of Present illness Narrative* Irene Han APRN.CNP - 2023 10:00 AM EDT PALLIATIVE MEDICINE PROGRESS NOTE SERVICE DATE: 2023 Primary Site of Disease/Medical Illness: Hodgkin Lymphoma - CINDI CHIEF COMPLAINT: follow up on pain and fatigue PERTINENT MEDICAL HISTORY: Celso Weller is a 42 yo female with a history of psoriatic arthritis and Hodgkin's Lymphoma diagnosed 01/16/2012 s/p autologous SCT (2013) and several other treatments dueto recurrences in that time. She has undergone [...] for symptom control needs. Subjective Last [facility] care visit 05/16/23 PET in May showed [...] during the day while awake. Modified ESAS ([place] Symptom Assessment Scale) Information Provided By: Patient [...] been APPROPRIATELY filled. No suspiciousactivity was identified. 2023 by Irene Han APRN.TRAINING AND DEVELOPMENT DIRECTOR Urine Screen Lab Results Component Value Date [...] Urine pH, Pain Ocasio 6.3 02/24/2021 Specific [place],Ur Pain Ocasio 1.012 02/24/2021 [place],Ur 46 02/24/2021 [...] (has recently been taking only PRN per herreport) - reduce oxycodone 10 mg Q8H PRN [...] via a virtual visit Irene Han APRN.CNP 2023 6:35 AM This note may have been partially generated using the [employer] voice recognition system. While every effort was made to correct voice recognition errors, kindly be aware that some errors may occasionally occur. documented in this encounterSelect Medical [facility]05-22-2024 NoteHNO ID: [id number] Author: CYNTHIA GUAJARDO CCC-GAS BRAZER Service: ? Author Type: Speech Language Pathologist Type: Progress Notes Filed: 07/10/2023 14:27 Note Text: Summary: MBSS Start of Care Date: 07/10/23 Onset Date: 05/22/23 [facility] MODIFIED BARIUM [...] developing pulmonary complications related to swallowing abilities. GAS BRAZER provided reflux precaution handout and contact information to schedule esophagram. GAS BRAZER recommends follow up with GI given noted [...] Consistencies Provided: Thin Liquids, Mildly Thick Liquids ([place] Thick), Pureed Solids, Soft and Bite-Sized Solids, [...] 4, Mildly Thick Liquids IDDSI Level 2 ([place] Thick), Thin Liquids IDDSI Level 0 Education: Education Learning Preferences: Explanation Barriers: None TREATMENT: Performed Modified Barium Swallowing Study (63951). Evaluation: Modified Barium Swallow Evaluation (72911) Education regarding findings from today's Modified Barium Swallowing study (fluoroscopic study) and suggested plans for tk (more content not included)... [facility] [id number] History of Present illness Narrative* Cynthia Guajardo CCC-GAS BRAZER - 07/10/2023 2:22 PM EDTSummary: MBSS Start of Care Date: 07/10/23 Onset Date: 05/22/23 [facility] MODIFIED BARIUM [...] developing pulmonary complications related to swallowing abilities. GAS BRAZER provided reflux precaution handout and contact information to schedule esophagram. GAS BRAZER recommends follow up with GI given noted [...] no knowledge). GOAL MET 07/10/23 SUBJECTIVE: Celso R Kastl is a 42 year old female seen [...] Consistencies Provided: Thin Liquids, Mildly Thick Liquids ([place] Thick), Pureed Solids, Soft and Bite-Sized Solids, [...] enter airway : Regular Consistency, Soft and Bite- Sized IDDSI Level 6, Pureed IDDSI Level 4, Mildly Thick Liquids IDDSI Level 2 ([place] Thick), Thin Liquids IDDSI Level 0 Education: Education Learning Preferences: Explanation Barriers: None TREATMENT: Performed Modified Barium Swallowing Study (80000). Evaluation: Modified Barium Swallow Evaluation (24648) Education regarding findings from today's Modified Barium Swallowing study (fluoroscopic study) andsuggested plans for treatment were provided to the patient through verbal / written instruction, images and/or demonstration. Patient was able to demonstrate understanding of education provided this date. Billing: Modified Barium Swallow (99848) Total time: 25 minutes Cynthia Guajardo CCC-TANMAY documented in this encounterSelect Medical [facility]05-[facility]-2024 History of Present illness Narrative* Nova Low RT(R) - 07/10/2023 1:00 PM EDT Radiology Service Progress Note PATIENT [...] PATIENT PRESENTS WITH AN IMPLANTABLE OR ATTACHED CARCASS TRIMMER: No RADIOLOGY DEPARTMENT: General X-ray: Exam(s) Completed: GI/ Procedure(s): Modified barium swallowwith barium contrast PERIPHERAL IV DATA: Not applicable SIGNED BY: RT Jasvir(R) July 10, 2023 2:04 PM documented in this encounterSelect Medical [facility]05-22-2024 NoteHNO ID: [id number] Author: NOVA LOW RT(Junior) Service: Radiology Author [...] PATIENT PRESENTS WITH AN IMPLANTABLE OR ATTACHED CARCASS TRIMMER: No RADIOLOGY DEPARTMENT: General X-ray: Exam(s) Completed: GI/ Procedure(s): Modified barium swallow with barium contrast PERIPHERAL IV DATA: Not applicable SIGNED BY: RT Jasvir(R) July 10, 2023 2:04 [facility] [id number] History of Present illness Narrative * Jani Becerril MD - 06/28/2023 11:00 AM EDT Images from the original note [...] March. She noted she did better when shewould be on Abx and steroid, and symptoms re surged after completing the course. She is on Trelegy since 3 weeks, She is on Flonase and Astelin nasal sprays for nasal symptoms. Sheis on albuterol MDI that she hasn't used [...] PFT: SPIROMETRY - BASELINE AND POST DILATOR ([id number]) - ordered on 03/28/23 Impression: Spirometry shows [...] with me in September as scheduled Jani Becerril MD, [facility] Res[facility] [place] documented in this encounterSelect Medical [facility]04-26-2024 Telephone encounter Note * Telephone Encounter - Chet Charlee - 06/14/2023 2:45 PM EDT Spoke to patient and scheduled Cardiology appointment with Dr. Elliott at [facility] in [place] on 07/12/2023 with a Chest US same day prior also at [facility] in [place]. Patient added to Dr. Becerril's schedule on 06/28/2023 at [facility] and added to wait list as well. Patient agreeable to all appointments. [facility]04-26-[facility]24 Miscellaneous Notes* Telephone Encounter - Charlee Rosenberg - 06/14/2023 2:45 PM EDT Spoke to patient and scheduled Cardiology appointment with Dr. Elliott at [facility] on 07/12/2023 with a Chest US same day prior also at [facility] in [place]. Patient added to Dr. Becerril's schedule on 06/28/2023 at [facility] and added to wait list as well. Patient agreeable to all appointments. * Telephone Encounter - Renetta Cuellar MA - 06/14/2023 1:58 PM EDT Spoke with patient and advised of message below. Patient verbalized understanding. Please call patient to help schedule as per below. * Telephone Encounter - Carole Ruano APRN.CNP - 06/14/2023 1:42 PM EDT Please let Celso know I've sent her a message with Dr. Becerril's recommendations, then transfer to scheduling for cardiology referral and US chest. Ms. Weller also needs to be added onto Dr. Becerril's schedule at [place] on Saturday06/28/23 at 11 am (it is a hospital day for her but adding her on per Dr. Becerril).Dr. Becerril would also like her put on the cancellation list for a sooner appt. CC PCP Carole Rick documented in this encounterSelect Medical [facility]04-26-2024 Telephone encounter Note * Telephone Encounter - Renetta Cuellar MA - 06/14/2023 1:58 PM EDT Spoke with patient and advised of message below. Patient verbalized understanding. Please call patient to help schedule as per below. [facility]04-[facility] Telephone encounter Note* Telephone Encounter - Carole Ruano APRN.CNP - 06/14/2023 1:42 PM EDT Please let Celso know I've sent her a message with Dr. Becerril's recommendations, then transfer to scheduling for cardiology referral and US chest. Ms. Weller also needs to be added onto Dr. Becerril's schedule at [place] on Saturday06/28/23 at 11 am (it is a hospital day for her but adding her on per Dr. Becerril).Dr. Becerril would also like her put on the cancellation list for a sooner appt. CC PCP Carole Rick [facility]04-25-2024 Telephone encounter Note* Telephone Encounter - Renetta Cuellar MA - 06/13/2023 1:25 PM EDT Images from the original note were not included. Received coverage denial letter from [employer] Medication:tiotropium bromide (SPIRIVA RESPIMAT) 2.5 mcg/actuation inhaler PA Status: Denied Please see alternative medications below [facility]04-25-2024 Miscellaneous Notes* Telephone Encounter - Renetta Cuellar MA - 06/13/2023 1:25 PM EDT Images from the original note were not included. Received coverage denial letter from [employer] Medication:tiotropium bromide (SPIRIVA RESPIMAT) 2.5 mcg/actuation inhaler PA Status: Denied Please see alternative medications below * Telephone Encounter - Renetta Cuellar MA - 06/13/2023 12:13 PM EDT Images from the original note were not included. Received PA request via covermymeds for [employer] Submitted E-PA Will wait for outcome documented in this encounterSelect Medical [facility]04-25-2024 Telephone encounter Note * Telephone Encounter - Renetta Cuellar MA - 06/13/2023 12:13 PM EDT Images from the original note were not included. Received PA request via cover[employer]eds for [employer] Submitted E-PA Will wait for outcome [facility]04-[facility]-20[facility] History of Present illness Narrative* Carole Ruano APRN.TRAINING AND DEVELOPMENT DIRECTOR - 06/13/2023 11:02 AM EDT Images from the original note were not included. . [facility] PULMONARY DEPARTMENT Follow-Up Clinic Note Ms. Weller is a 42 year old female who presents to the [facility] [place] for follow up of ongoing bronchitis symptoms. Patient's primary client service administrator is Dr. Becerril. Last office visit was 04/19/23 with me; HFU visit for influenza A PNA. 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 Former smoker. INTERVAL HPI/ROS Today Ms. Weller reports ongoing pulmonary issues since our last visit together on 04/19/23. She has had multiple visits with [facility] care and her PCP for ongoing chest tightness, wheezing, productive cough with thick green sputum, headaches, and dyspnea above her usual baseline which continued to worsen despite treatment as listed below. No difficulty with mucus expectoration. Using her acapella maldonado routine basis. No fever, chills, GI symptoms. [...] spasm. azelastine 0.1% nasal spray Use 1 Morris in each nostril two times a day. [...] C No.3 (B COMPLEX PLUS VITAMIN C) 37-11-72-5-300 mg cap Take 1 tablet by mouth [...] cooperative. DIAGNOSTICS Testing I Reviewed Today: See [facility] for all available results and images. [...] Lymph 1.00 - 4.00 k/uL 2.11 Abs Nuckolls <0.87 k/uL 0.67 Abs Eosin <0.46 k/uL [...] She will return this to her local [facility] lab. Given the complexity of her ongoing issues, I will reach out to her primary client service administrator Dr. Becerril today to help further guide her treatment [...] which included preparing to see the patient, bvrq-hf-uvzp patient care, completing clinical documentation, performing a medically appropriate examination, counseling and educating the patient/family/caregiver, ordering medications, tests, or p rocedures, and communicating with other HCPs (not separately reported). Carole Ruano DNP, ACCOUNT SERVICES ASSOCIATE-TRAINING AND DEVELOPMENT DIRECTOR [facility] documented in this encounterSelect Medical [facility]04-[facility]-2024 Telephone encounter Note * Telephone Encounter - Jeny Nava RN - 06/11/2023 12:39 PM EDT Pt informed of BRM message and denies any questions, needs or concerns at this time. Appointment verified. Jeny Nava RN [facility]04-23-2024 Telephone encounter Note* Telephone Encounter - Jeny Nava RN - 06/11/2023 12:39 PM EDT ----- Message from Ruperto Ledezma MD sent at 06/11/2023 12:10 PM EDT ----- Please inform the patient that her IgG levels are normal, would not benefit from infusions. Her TFTs are normal, continue current dose of Synthroid. If still infectious symptoms after completing Z-Ron she should start the Levaquin. We will see her back as scheduled. [facility]04-23-2024 Miscellaneous Notes* Telephone Encounter - Jeny Nava RN - 06/11/2023 12:39 PM EDT Pt informed of BRM message and denies any questions, needs or concerns at this time. Appointment verified. Jeny Nava RN * Telephone Encounter - Jeny Nava RN - 06/11/2023 12:39 PM EDT ----- Message from Ruperto Ledezma MD sent at 06/11/2023 12:10 PM EDT ----- Please inform the patient that her IgG levels are normal, would not benefit from infusions. Her TFTs are normal, continue current dose of Synthroid. If still infectious symptoms after completing Z-Ron she should start the Levaquin. We will see her back as scheduled. documented in this encounterSelect [facility]04-[facility]24 Telephone encounter Note * Telephone Encounter - Irene Han APRN.CNP - 06/10/2023 12:59 PM EDT PDMP website checked and validated. All prescriptions have been APPROPRIATELY filled. No suspiciousactivity was identified. 06/10/2023 by Irene Han APRN.TRAINING AND DEVELOPMENT DIRECTOR Rx sent Irene Han APRN.CNP [facility]04-22-2024 Miscellaneous Notes* Telephone Encounter - Irene Han APRN.CNP - 06/10/2023 12:59 PM EDT PDMP website checked and validated. All prescriptions have been APPROPRIATELY filled. No suspiciousactivity was identified. 06/10/2023 by Irene Han APRN.TRAINING AND DEVELOPMENT DIRECTOR Rx sent Irene Han APRN.PEDRO * Telephone Encounter - Kylie Mosher RN - 06/10/2023 9:38 AM EDT Patient requesting refills as follows: Last ordered 05/13/2023. Next scheduled follow up appointment 2023. Requested Prescriptions Pending Prescriptions Disp Refills oxyCODONE IR (ROXICODONE) 10 mg tab 120 tablet 0 Sig: Take 1 tablet by mouth every 6 hours as needed for pain for up to 30 days. Kylie Mosher RN June 10, 2023 documented in this encounterSelect Medical [facility]04-22-2024 Telephone encounter Note * Telephone Encounter - Kylie Mosher RN - 06/10/2023 9:38 AM EDT Patient requesting refills as follows: Last ordered 05/13/2023. Next scheduled follow up appointment 2023. Requested Prescriptions Pending Prescriptions Disp Refills oxyCODONE IR (ROXICODONE) 10 mg tab 120 tablet 0 Sig: Take 1 tablet by mouth every 6 hours as needed for pain for up to 30 days. Kylie Mosher RN June 10, 2023 [facility]04-21-[facility]24 History of Present illness Narrative* Ruperto Ledezma MD - 06/09/2023 10:16 PM EDT PATIENT NAME: Celso Weller DATE: 06/10/2023 PRIMARY CARE PHYSICIAN: Bee Vail MD OTHER PHYSICIANS: Dr. Cyn Hernandez; Dr. Gurpreet Unger; Irene Han CNP ([facility] Pall Med), Dr. Jane Del Valle ([facility] Rad Onc), Dr. Jani Becerril ([facility] Pulmonary), Dr Radha Gamez ([facility] Dermatology) Portions of this encounter note [...] shortness of breath with chest tightness. Per [facility] pulmonary (Dr. Becerril) she was given several different bronchodilators as well as a course of steroids. She believes the bro nchodilators have caused throat pain, now with difficulty [...] spasm. azelastine 0.1% nasal spray Use 1 Morris in each nostril two times a day. [...] C No.3 (B COMPLEX PLUS VITAMIN C) 88-82-30-5-300 mg cap Take 1 tablet by mouth [...] FDG avid neoplastic process. 04/02/2023 Chest x-ray ([facility]) Airspace opacities in the medial lungs [...] mid abdominal pain, and was found to haveprogressive disease in the right mesenteric area. She [...] additional labs today including TFTs and an IgGlevel. If the IgG level is low would consider IV IgG replacement. If infectious symptoms persist after completing her current Z-Ron prescription will treat with a more aggressive antibiotic ([id number] mg daily x 10). 2. Autologous bone [...] medication. At this time we will monitor closely,and reconsider intervention if symptoms worsen. 11. Chronic fatigue The patient has a long history of chronic fatigue, most likely related to her underlying disease, extensive prior treatment, and multiple medications. Ruperto Ledezma MD documented in this encounterSelect Medical [facility]04-12-2024 History of Present illness Narrative* Gunjan Hi, RT(R) - 05/31/2023 3:39 PM EDT Radiology Service Progress Note PATIENT [...] PATIENT PRESENTS WITH AN IMPLANTABLE OR ATTACHED CARCASS TRIMMER: No RADIOLOGY DEPARTMENT: General X-ray: Exam(s) Completed: Chest X-Ray PERIPHERAL IV DATA: Not applicable SIGNED BY: RT Rosangela(R) May 31, 2023 3:39 PM documented in this encounterSelect Medical [facility]04-12-2024 History of Present illness Narrative* Rosales Aguirre APRN.TRAINING AND DEVELOPMENT DIRECTOR - 05/31/2023 2:38 PM EDT This note was created using [employer]. Subjective Celso Weller is a 42 year [...] spasm. azelastine 0.1% nasal spray Use 1 Morris in each nostril two times a day. [...] C No.3 (B COMPLEX PLUS VITAMIN C) 00-65-59-5-300 mg cap Take 1 tablet by mouth [...] Sclerosis Mother Coronary Artery Disease Maternal Grandfather [place] age 36 Coronary Artery Disease Paternal Grandfather [...] apprec recs. Will obtain chest xray at [facility]. Give breathing treatment and re-evaluate. Reviewed diagnosis [...] concerns/questions at the end of the visit. Rosales Aguirre APRN.CNP May 31, 2023 4:03 PM documented in this encounterSelect Medical [facility]04-09-2024 Miscellaneous Notes* Telephone Encounter - Mitzi Han MA - 05/28/2023 11:00 AM EDT Last OV 04/19/2023 F/U 09/26/2023 Pharmacy requesting [...] wheezing or shortness of breath Rx #: [id number] Pharmacy comment: Please authorize 90 days supply for the patient. Please review and advise. Mitzi Han MA documented in this encounterSelect Medical [facility]04-03-2024 History of Present illness Narrative* Anil Franco PA-C - 05/22/2023 7:51 AM EDT Images from the original note were not included. [facility] [place] [facility] NOTE CC: Celso Weller is a 42 year old female who is seen at the request of 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 APRN, CNPfor evaluation of dysphagia, unspecified type and hoarseness. [...] clinically indicated. May consider consult to GI, GAS BRAZER Anil Franco PA-C [facility] HPI: 42 year old female presents to clinic for evaluation of dysphagia, unspecified type and hoarseness.Patient reports 1.5+ years of hoarseness. Patient was [...] and she has to focus on act ofswallowing. Patient endorses chronic cough, nonproductive as well as PND, globus sensation. Patientwas placed on Astelin due to concern for PND contributing to sore throat with mild relief. However,side effects of significant dryness, oral dryness so [...] 6hours as needed for wheezing/shortness of breath. ipratropium-albuterol [...] spasm. azelastine 0.1% nasal spray Use 1 Morris in each nostril two times a day. [...] C No.3 (B COMPLEX PLUS VITAMIN C) 06-70-52-5-300 mg cap Take 1 tablet by mouth [...] Sclerosis Mother Coronary Artery Disease Maternal Grandfather [place] age 36 Coronary Artery Disease Paternal Grandfather [...] - otalgia, - ear pressure, - ear congestion,- otorrhea, - itching, - autophony, - ear [...] are patent. The mucosa is pink and moistwithout lesions, visible turbinates grossly normal on anterior rhinoscopy. Septum is midline. ORAL CAVITY AND OROPHARYNX: Teeth are in fair repair and nontender. The lips, gums, oral mucosa, hard and soft palates, tongue, tonsil area, and posterior pharyngeal mucosa are without lesions. Uvulamidline. No pharyngeal swelling, oropharyngeal exudate, + posterior [...] Level: 4 - Moderate documented in this encounterSelect Medical [facility]04-01-2024 History of Present illness Narrative* Edilma Song RN - 05/20/2023 12:45 PM EDT Radiology Service Progress Note DATE OF [...] DATE: May 20, 2023 TIME: 12:52 PM * Diaz Noel, RT(R) - 05/20/2023 12:45 PM EDT RADIOLOGY SERVICE PROGRESS NOTE SERVICE DATE: 05/20/2023 [...] PATIENT PRESENTS WITH AN IMPLANTABLE OR ATTACHED CARCASS TRIMMER: No IV SITE: lt ac POST EXAM PIV STATUS: Discontinued PROCEDURE TYPE: NM INJECT: PET/CT BODY SCAN. 12.1 mCi F18 FDG. No other medications given.. ADMINISTRATION TIME: 1255 PATIENT DISCHARGED TO: Ambulatory patient, left [place] department area. A Diagnostic radioactive procedure has taken place, with no further precautions necessary other than routine body substance precautions. More information regarding radiation safety can be found usingthis link: [email or web address] SIGNATURE: RT Vonda(R) PATIENT NAME: Celso Weller DATE: May 20, 2023 TIME: 1:01 PM PAGER/CONTACT #: documented in this [facility]03-25-2024 Miscellaneous Notes* Telephone Encounter - Irene Han APRN.PEDRO - 05/13/2023 9:33 AM EDT PDM website checked and validated. All prescriptions have been APPROPRIATELY filled. No suspiciousactivity was identified. 05/13/2023 by Irene aHn APRN.TRAINING AND DEVELOPMENT DIRECTOR Rx sent Irene Han APRN.TRAINING AND DEVELOPMENT DIRECTOR * Telephone Encounter - Kylie Mosher RN - 05/13/2023 7:41 AM EDT Patient requesting refills as follows: Last ordered 04/08/2023. Next scheduled follow up appointment 05/16/2023. Requested Prescriptions Pending Prescriptions Disp Refills oxyCODONE IR (ROXICODONE) 10 mg tab 120 tablet 0 Sig: Take 1 tablet by mouth every 6 hours as needed for pain for up to 30 days. Kylie Mosher RN May 13, 2023 documented in this [facility]03-19-2024 Miscellaneous Notes* Telephone Encounter - Kylie Mosher RN - 05/07/2023 10:49 AM EDT Pharmacy requesting refills as follows: Last ordered 01/07/2023 Next scheduled follow up appointment 05/16/2023. Requested Prescriptions Pending Prescriptions Disp Refills baclofen 5 mg tablet [Pharmacy Med Name: BACLOFEN 5 MG TABLET] 90 tablet 1 Sig: take 1 tablet by mouth three times a day Kylie Mosher RN May 07, 2023 documented in this encounterSelect Medical [facility]03-[facility]-2024 History of Present illness Narrative* Lani Zamora RT(R) - 04/19/2023 9:30 AM EST Radiology Service Progress Note PATIENT NAME: Celso [...] PATIENT PRESENTS WITH AN IMPLANTABLE OR ATTACHED CARCASS TRIMMER: No RADIOLOGY DEPARTMENT: General X-ray: Exam(s) Completed: Chest X-Ray PERIPHERAL IV DATA: Not applicable SIGNED BY: RT Nishant(R) April 19, 2023 9:31 AM documented in this encounterSelect Medical [facility]03-01-2024 History of Present illness Narrative* Carole Ruano APRN.TRAINING AND DEVELOPMENT DIRECTOR - 04/19/2023 8:43 AM EST Images from the original note were not included. . [facility] PULMONARY DEPARTMENT Follow-Up Clinic Note Ms. Weller is a 42 year old female who [facility] the [facility] [place] for follow up of hospitalization for pneumonia secondary to influenza. Patient's primary client service administrator is Dr. Becerril. PMH includes restrictive lung disease 2/2 pneumonitis [...] difficulty swallowing and persistent hoarseness. Refer to [facility] ENT for repeat flex scope and [...] evening of 03/28/23 (following her last visit here).She reports severe dyspnea with exertion, harsh nonproductive cough, frequent wheezing, fatigue, headache, sinus congestion and drainage, body aches, fever with Tmax 103.8. No GI symptoms, no loss oftaste or smell. Home COVID test was positive. She was evaluated via telehealth 03/29/2023 and startedon molnipiravir. Symptoms continued to worsen, and she went went to [facility] ED 03/31/23. SARS-CoV-2 TARA testing done at that time was negative. She was also negative for influenza A/influenza B antigens at that time. She was diagnosed with nonspecific viral illness and advised to stop molnupiravir at that time. Symptoms further worsened, especially dyspnea and wheezing, so she returned to [facility] ED04/02/2023. This time she tested positive for influenza A, with new bilateral infiltrates on CXR suggestive of pneumonia. She was admitted to ICU for severe persistent headache different than her baseline. She was discharged to home 04/04/2023 with 3 days of amoxicillin post IV treatment. She saw herP for hospital follow-up on 04/09/2023 and was [...] due to cough/wheeze. She continues to have sinuspressure with nasal congestion. Current Treatment Plan Breo [...] daily. azelastine 0.1% nasal spray Use 1 Morris in each nostril two times a day. [...] 6hours as needed for wheezing/shortness of breath. acyclovir [...] C No.3 (B COMPLEX PLUS VITAMIN C) 03-98-44-5-300 mg cap Take 1 tablet by mouth [...] right-lower field reveals decreased breath sounds. Examination ofthe left-lower field reveals decreased breath sounds. Decreased breath sounds present. No wheezing,rhonchi or rales. Musculoskeletal: Right lower leg: No [...] cooperative. DIAGNOSTICS Testing I Reviewed Today: See [facility] for all available results and images. [...] dyspnea, and sinus congestion. She completed her antibiotics04/07/23. She is currently finishing a prednisone 40 [...] lung rodriguez. Discussed that it is not expectedto demonstrated complete clearing now, but am assessing for any worsening. - - Will request most recent images from [facility] for comparison Follow up with Dr. Becerril in Sep 2023 as already scheduled, and as needed. Contact Dr. Becerril and myself for any persistent symptoms that do not return to baseline post-treatment. Patient instructed to call our office, PCP, or go to the emergency department for new or worsening problems or symptoms. Carole Ruano DNP, LORY-PEDRO [facility] [place] I spent a total of 46 minutes on the date of the service which included preparing to see the patient, [id number] patient care, completing clinical documentation, obtaining and/or reviewing separately obtained history, performing a medically appropriate examination, counseling and educating the pat ient/family/caregiver, and ordering medications, tests, or procedures. documented in this encounterSelect Medical [facility]02-27-2024 History of Present illness Narrative* Ruperto Ledezma MD - 04/16/2023 6:00 AM EST PATIENT NAME: Celso Weller DATE: 04/16/2023 PRIMARY CARE PHYSICIAN: Bee Vail MD OTHER PHYSICIANS: Dr. Cyn Hernandez; Dr. Gurpreet Unger; Irene Han CNP ([facility] Pall Med), Dr. Jane Del Valle ([facility] Rad Onc), Dr. Jani Becerril ([facility] Pulmonary), Dr Radha Gamez ([facility] Dermatology) Portions of this encounter note [...] shortness of breath. She was seen at [facility] emergency room on 03/30/2023, and apparently her workup was negative and she was sent home. She returned on 04/01/2023 with worsening symptoms at which time labs revealed evidence of influenza A infection, and chest x-ray suspicious forpneumonia. She was admitted, given IV antibiotics, steroids, and subsequently improved. She was discharged on 04/04/2023 and since then has completed a course of oral antibiotics. She remains on a tapering dose of prednisone. She still has some degree of shortness of breath, but no recent fevers. Interestingly, her previousmuscle cramps have since resolved. No other complaints [...] daily. azelastine 0.1% nasal spray Use 1 Morris in each nostril two times a day. [...] 6hours as needed for wheezing/shortness of breath. acyclovir [...] C No.3 (B COMPLEX PLUS VITAMIN C) 76-99-17-5-300 mg cap Take 1 tablet by mouth [...] 04/05/2021 277 RADIOLOGY/OTHER STUDIES: 04/02/2023 Chest x-ray ([facility]) Airspace opacities in the medial lungs [...] mid abdominal pain, and was found to haveprogressive disease in the right mesenteric area. She [...] per [facility] pulmonary. She was hospitalized at [facility] 04/02/2023 through 04/04/2023 with apparent influenza A andcommunity-acquired pneumonia. Clinically improved with antibiotics. Currently on a prednisone taper. Per patient request we will arrange for follow-up with her F client service administrator (Dr. Becerril). 4. History of pulmonary embolism and DVT [...] medications. Ruperto Ledezma MD documented in this encounterSelect Medical [facility]02-19-2024 Miscellaneous Notes* Telephone Encounter - Irene Han APRN.CNP - 04/08/2023 7:47 PM EST PDMP website checked and validated. All prescriptions have been APPROPRIATELY filled. No suspiciousactivity was identified. 04/08/2023 by Irene Han APRN.TRAINING AND DEVELOPMENT DIRECTOR Rx sent Irene Han APRN.TRAINING AND DEVELOPMENT DIRECTOR * Telephone Encounter - Kylie Mosher RN - 04/08/2023 3:24 PM EST Patient requesting refills as follows: Last ordered [...] RN April 08, 2023 documented in this encounterSelect Medical [facility]02-12-2024 Miscellaneous Notes* Telephone Encounter - Jakob May - 04/01/2023 10:35 AM EST Patient will need lab orders for Saturday04/16/23. Thanks. Jeny Robert MA documented in this encounterSelect Medical [facility]02-09-2024 History of Present illness Narrative* Ellyn Keller NP - 03/29/2023 1:15 PM EST Subjective Patient ID: Celso Weller is a [...] by mouth in the morning and 1 capsule(300 mg) in the evening and 1 capsule [...] 4 (four) times a day as needed foranxiety 120 tablet 2 mirtazapine (Remeron) 30 MG [...] mouth as needed at bedtime for sleep 90tablet 3 No current facility-administered medications on file [...] mouth in the morning and 4 capsules (800mg) before bedtime. Do all this for 5 days. Follow instructions about contraceptive use during and after treatment (if of child- bearing potential). Dispense: 40 capsule; Refill: 0 documented in this encounterOzarks Community [id number] Instructions* Patient Instructions* 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 APRN.CNP - 03/28/2023 2:41 PM EST Continue Breo [...] if any runs out. documented in this encounterSelect Medical [facility]02-08-2024 History of Present illness Narrative* 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 APRN.CNP - 03/28/2023 2:30 PM EST Images from the original note were not [...] difficulty swallowing and persistent hoarseness. Refer to [facility] ENT for repeat flex scope and assistance with management. Will need to consider MBS as well pending evaluation 6. History of pulmonary embolism - ICD9: V12.55, ICD10: Z86.711 In the setting of malignancy. On life long anticoagulation with Xarelto. Follow up in [address] Becerril I have discussed the above recommendations in detail with the patient. Patient verbalizes understanding and is in agreement with plan as stated above. Patient has been instructed to call our office, their PCP, or go to the nearest emergency department for new or worsening problems, including but not limited to, increasing shortness of breath, cough, fever, or chills. Electronically signed by 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 APRN.[facility] [place], [facility] March 28, 2023 2:55 PM Time [...] has not seemed to find one that helpsher congestion. Recently having trouble with swallowing. Has [...] office visit was on 09/13/[address] Becerril. Recommendations from that office visit were as [...] anticoagulation for PE F/u 3 MONTHS WITH [facility] , PFT that day I have reviewed and updated the complete medication list in the EMR. ALLERGIES Allergen Reactions Chlorhexidine Itching Severe skin irritation. Had used for central line care Sulfa (Sulfonamide * Rash IMMUNIZATIONS: Immunization History Administered Date(s) Administered Haemophilus influenzae b (Hib PRP-OMP) vaccine, 3-dose series (PEDVAX HIB) 10/14/2013 12/21/2013 03/11/2014 Haemophilus influenzae b-meningococcal bivalent (Soq-OevWY-CC) vaccine (MENHIBRIX) 10/14/2013 diphtheria tetanus (DT) vaccine, [...] of air trapping, less conspicuous. 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 APRN.TRAINING AND DEVELOPMENT DIRECTOR March 28, 2023 This note was partially generated using [employer] voice recognition system, and there may be some incorrect words, spellings, and punctuation that were not noted in checking the note before saving. documented in this encounterSelect Medical [facility]02-08-2024 Procedure note* Perla Powell, SUPERVISOR PLATING [employer] POINT ASSEMBLY - 03/28/2023 1:59 PM ESTAssociated Order(s): NITRIC OXIDE, EXHALED RESPIRATORY THERAPY ORAL EXHALED [...] 2023 TIME: 1:59 PM documented in this encounterSelect Medical [facility]02-08-2024 History of Present illness Narrative* Perla Powell RRT - 03/28/2023 1:58 PM EST PULM FUNCTION SMARTBLOCK: Provider: Don Chan APRN.TRAINING AND DEVELOPMENT DIRECTOR Spirometry w/BD: 1 DLCO: 1 Exhaled Nitric Oxide: 1 documented in this encounterSelect Medical [facility]12-12-2023 Evaluation note* Encounter Date Diagnosis Assessment Notes Treatment Notes Treatment Clinical Notes Jan, Dysuria (ICD-10 - R30.0) Jan,cute cystitis without hematuria (ICD-10 - N30.00)Drink plenty fluids, get plenty of rest. Take the Macrobid and Pyridium as prescribed until gone. Take Tylenol or Motrin as needed for aches pains or fevers. Continue home medications as prescribed. Follow-up with your family physician if no improvement in 2 to 3 days tsumobi Other 12-11-2023 Miscellaneous Notes* Telephone Encounter - Edilma Song RN - 01/28/2023 1:47 PM EST Pt here for PET Benny labs for office f/u next week Please sign pended cortisol level if needed for f/u. Pt requested level Thank You! Edilma Song RN documented in this encounterSelect Medical [facility]12-11-2023 History of Present illness Narrative* Bee Singleton RT(R) - 01/28/2023 1:30 PM EST RADIOLOGY SERVICE PROGRESS NOTE SERVICE DATE: 01/28/2023 SERVICE TIME: 1:51 PM PATIENT IDENTITY VERIFICATION COMPLETED USING TWO (2) STANDARD IDENTIFIERS: Name and Date of confirmed by patient verbally POST EXAM PIV STATUS: Discontinued PROCEDURE TYPE: NM INJECT: PET/CT BODY SCAN. 13.9 mCi F18 FDG. No other medications given.. ADMINISTRATION TIME: 1345 PATIENT DISCHARGED TO: Ambulatory patient, left [place] department area. A Diagnostic radioactive procedure has [...] 2023 TIME: 1:53 PM documented in this encounterSelect Medical [facility]11-20-2023 Miscellaneous Notes* Telephone Encounter - Kristina Pete RN - 01/07/2023 8:12 AM EST Next visit Irene Emely 02/28/23 Patient phones requesting refills as [...] advise. Kristina Pete RN documented in this encounterSelect Medical [facility]11-16-2023 Miscellaneous Notes* Telephone Encounter - Anh Bowles [...] are back to baseline. documented in this encounterSelect Medical [facility]11-14-2023 History of Present illness Narrative* Ruperto Ledezma MD - 01/01/2023 7:39 AM EST PATIENT NAME: Celso Weller DATE: 01/01/2023 PRIMARY CARE PHYSICIAN: Bee Vail MD OTHER PHYSICIANS: Dr. Cyn Hernandez; Dr. Gurpreet Unger; Irene Han CNP ([facility] Pall Med), Dr. Jane Del Valle ([facility] Rad Onc), Dr. Jani Becerril ([facility] Pulmonary), Dr Radha Gamez ([facility] Dermatology) CC: This is a 42 [...] C No.3 (B COMPLEX PLUS VITAMIN C) 73-90-12-5-300 mg cap^Take 1 tablet by mouth once [...] PCP. Ruperto Ledezma MD documented in this encounterSelect Medical Cleveland [facility]10-30-2023 Miscellaneous Notes* Telephone Encounter - Mitzi Brown - 12/17/2022 2:33 PM EDT Called patient and rescheduled with PFT's to January 03 and FU with [facility] documented in this encounterSelect Medical [facility]09-18-2023 Miscellaneous Notes* Telephone Encounter - Irene Han APRN.TRAINING AND DEVELOPMENT DIRECTOR - 11/05/2022 4:38 PM EDT PDMP website checked and validated. All prescriptions have been APPROPRIATELY filled. No suspiciousactivity was identified. 11/05/2022 by Irene Han APRN.TRAINING AND DEVELOPMENT DIRECTOR Rx sent - earliest fill 11/09/22 Irene Han APRN.TRAINING AND DEVELOPMENT DIRECTOR * Telephone Encounter - Kylie Mosher RN [...] advise. Kylie Mosher RN documented in this encounterSelect Medical Cleveland Clinic [facility]08-31-2023 Miscellaneous Notes* Telephone Encounter - Kylie Mosher RN - 10/18/2022 1:34 PM EDT Prior Authorization Documentation Prior authorization requested via Covermymeds for the following medication: Medication: Lyrica 100 mg capsules Approved and authorizes your coverage from 02/18/2022 - 02/17/2023, Insurance Company Name: [employer] Phone number: [phone] Patient ID number: [id number] Rekha [id number] Pharmacy Name: [facility] Telephone number: [phone] Kylie Mosher RN October 18, 2022 1:38 PM documented in this encounterSelect Medical Cleveland Clinic [facility], [facility]08-31-2023 Instructions* Patient Instructions* Irene Han APRN.CNP - 10/18/2022 11:50 AM EDT Irene Han CNP Department of Palliative and Supportive Care Palliative Care - Specialty services in symptom management and support For questions or prescription refills, call: [phone] Saturday - Saturday 9AM-5PM ERVIN Corrales, RN - Autoclave Operator Please call 3-5 days in advance for medication refills Evenings, Weekends, Holidays: [phone] (ask for palliative medicine on-call provider) For appointments, cancellations or reschedule, call: [phone] documented in this encounterSelect Medical Cleveland Clinic [facility], [facility]08-31-2023 History of Present illness Narrative* Irene Han APRN.CNP - 10/18/2022 11:26 AM EDT PALLIATIVE [...] Denies confusion, oversedation, myoclonus, constipation. Modified ESAS ([place] Symptom Assessment Scale) Information Provided By: Patient [...] suspiciousactivity was identified. 10/18/2022 by Irene Han APRN.TRAINING AND DEVELOPMENT DIRECTOR Urine Screen Lab Results Component Value Date [...] Urine pH, Pain Ocasio 6.3 02/24/2021 Specific [place],Ur Pain Ocasio 1.012 02/24/2021 Oxidants,Ur 46 02/24/2021 [...] may have been partially generated using the [employer] voice recognition system. While every effort was made to correct voice recognition errors, kindly be aware that some errors may occasionally occur. documented in this encounterSelect Medical Cleveland Clinic [facility]08-31-2023 Instructions* Patient Instructions* Rosales Pedersen RN - 10/18/2022 11:10 AM EDT Use warm compresses to left inner thigh daily for comfort documented in this encounterSelect Medical Cleveland Clinic [facility]08-31-2023 History of Present illness Narrative* Rosales Pedersen RN - 10/18/2022 10:47 AM EDT [...] 7 FOLLOW UP: 6 weeks with provider Rosales Pedersen RN October 18, 2022 11:09 AM documented in this encounterSelect Medical Cleveland [facility]08-22-2023 Miscellaneous Notes* Telephone Encounter - Kylie Mosher [...] advise. Kylie Mosher RN documented in this encounterSelect Medical Cleveland Clinic [facility]08-21-2023 Miscellaneous Notes* Telephone Encounter - Flori Cartagena [...] advise. Flori Cartagena RN documented in this encounterSelect Medical Cleveland Clinic [facility], [facility]07-27-2023 History of Present illness Narrative* Jani Becerril MD - 09/13/2022 10:00 AM EDT Celso [...] PFT: SPIROMETRY - BASELINE AND POST DILATOR ([id number]) - ordered on 11/03/19 [facility] [address] [address] [place] [address] Test Date: 2019-11-03 Pat Name: CELSO WELLER Department: Room: Gender: Female Professional Nursing Assistant: Perla Baker : 1980 Requested By: Order Number: [id number] Reading MD: Justin Moreno Interpretive Statements PRE [...] 38 .4 FIVC L 2.35 2.35 0.0 BWC10-24% L/s 2.36 2.36 3.81 5.55 61.8 3.00 78.7 27.2 FDJ440% sec 7.37 5.99 -18.7 FETPEF sec 0.07 [...] anticoagulation for PE F/u 3 MONTHS WITH KOHI , PFT that day Jani Becerril MD, [facility] [place] documented in this encounterSelect Medical Cleveland Clinic [facility]07-05-2023 Instructions* Patient Instructions* Gunjan Joya LPN - 08/22/2022 2:50 PM EDT Follow up with Dr. Hernandez in the beginning of November Patient will schedule PET scan documented in this encounterSelect Medical Cleveland Clinic [facility]07-05-2023 History of Present illness Narrative* Cyn Hernandez [...] She saw Dr. Alejandro sarmiento at [facility] for 2nd opinion cell([phone]) She agreed with out plan and recommended [...] DATA CBC, CMP, TSH were reviewed in [facility]. PET scan report and images were reviewed in [facility]. Results werediscussed with patient and radiation [...] FACP CC: Bee Parra documented in this encounterSelect Medical Cleveland Clinic [facility]06-27-2023 Miscellaneous Notes* Telephone Encounter - Irene Han APRN.PEDRO - 08/14/2022 1:29 PM EDT PDMP website checked and validated. All prescriptions have been APPROPRIATELY filled. No suspiciousactivity was identified. 08/14/2022 by Irene Han APRN.TRAINING AND DEVELOPMENT DIRECTOR Rx sent Irene Han APRN.PEDRO * Telephone [...] advise. Kristina Pete RN documented in this encounterSelect Medical Cleveland Clinic [facility]06-27-2023 History of Present illness Narrative* Edilma Song [...] 2022 TIME: 10:58 AM * Bee Singleton RT(Junior) - 08/14/2022 10:45 AM EDT RADIOLOGY SERVICE PROGRESS NOTE SERVICE DATE: 08/14/2022 SERVICE TIME: 11:23 AM PATIENT IDENTITY VERIFICATION COMPLETED USING TWO (2) STANDARD IDENTIFIERS: Name and Date of confirmed by patient verbally POST EXAM PIV STATUS: Discontinued PROCEDURE TYPE: NM INJECT: PET/CT BODY SCAN. 11.6 mCi F18 FDG. No other medications given.. ADMINISTRATION TIME: 1109 PATIENT DISCHARGED TO: Ambulatory patient, left [place] department area. A Diagnostic radioactive procedure has taken place, with no further precautions necessary other than routine body substance precautions. More information regarding radiation safety can be found usingthis link: [email or web address] SIGNATURE: DIMA Julien) PATIENT NAME: Celso Weller DATE: August 14, 2022 TIME: 11:23 AM PAGER/CONTACT #: documented in this encounterSelect Medical Cleveland Clinic [facility], [facility]06-16-2023 Miscellaneous Notes* Telephone Encounter - Don Chan APRN.CNP - 08/03/2022 12:15 PM EDT Called and spoke with patient, updated her on the plan discussed with Dr. Becerril. She is aware of herscheduled appointment for 09/13. * Telephone Encounter - Mitzi Brown - 08/03/2022 8:34 AM EDT Patient is scheduled for 09/13 at 10am * Telephone Encounter - Don Chan APRN.CNP - 08/02/2022 4:42 PM EDT Discussed patient's recent CT scan with Dr. Becerril via telephone and also her most recent office visit. Ms. Weller reports improvement in her symptoms since her last visit. She still has a chronic productive cough. No constitutional signs of an infection, in terms of fever, chills, nightsweats or general malaise. We will plan to for repeat PFTs in August followed by office visit with Dr. Becerril. Her most recent CT still shows some airway disease as well as unchanged reticular nodular opacities. She was provided with cup for sputum sample in May and again yesterday. We will await sputum sample results. If negative, we will be ok with her continuing her immunotherapy infusions. Plan was discussed with Dr. Becerril. I called Celso to discuss plan, I was only able to reach her VM. Will try to call her at another time. documented in this encounterSelect Medical Cleveland Clinic [facility]06-14-2023 Instructions* Patient Instructions* Don Chan APRN.CNP - [...] sample in cup provided. documented in this encounterSelect Medical Cleveland Clinic [facility], [facility]06-14-2023 History of Present illness Narrative* Don Chan APRN.CNP - 08/01/2022 10:00 AM EDT Images from the original note were not included. [facility] Date: August 01, 2022 8:48 AM Name: Celso Weller : 1980 CC: Pulmonary follow-up Celso Welelr is a 42 year old female with [...] discuss patient's most recent CT/chart with Dr. Becerril to decide if any further workup necessary or if we can proceed with immunotherapy infusion. Will notify Dr. Hernandez once I have discussed with Dr. Becerril - Please provide respiratory sample - SODIUM [...] or chills. Electronically signed by Don Chan APRN.[facility] [place], [facility] July 31, 2022 HPI: Celso Weller [...] in the pulmonary office on 06/04/2022 by KHOI. A&P from that visit as follows: ASSESSMENT/PLAN: [...] listed in the HPI Modified Medical Research [place] Dyspnea Scale (MMRC) I only get breathless [...] C No.3 (B COMPLEX PLUS VITAMIN C) 89-06-74-5-300 mg cap Take 1 tablet by mouth [...] Sclerosis Mother Coronary Artery Disease Maternal Grandfather [place] age 36 Coronary Artery Disease Paternal Grandfather [...] 10/14/2013 12/21/2013 03/11/2014 Haemophilus influenzae b-meningococcal bivalent (Zif-MepFZ-ZC) vaccine (MENHIBRIX) 10/14/2013 diphtheria tetanus (DT) vaccine, [...] DIAGNOSTICS & IMAGING: (Reviewed & updated by ok 07/31/2022) PFTs 11/03/2019 IMPRESSION: Spirometry shows no [...] fatty infiltration. No evidence of adrenal mass.. Artist Mannequin Coloring (topogram) images: No additional findings. YOGESH DAVIS [...] unlikely to be related to lymphoma RESULT: Artist Mannequin Coloring (topogram) images: No additional findings. - Mediastinum [...] which included preparing to see the patient, pqzc-od-pbsj patient care, completing clinical documentation, obtaining and/or reviewing separately obtained history, performing a medically appropriate examination, counseling and educating the pat ient/family/caregiver, and ordering medications, tests, or procedures. documented in this encounterSelect Medical [facility]06-01-2023 History of Present illness Narrative* Irene Han [...] bilateral lung rodriguez. Finished steroids and antibiotics. Chitina very good after this but then as [...] relaxants. Denies confusion, oversedation, myoclonus. Modified ESAS ([place] Symptom Assessment Scale) Information Provided By: Patient [...] suspiciousactivity was identified. 07/19/2022 by Irene Han APRN.TRAINING AND DEVELOPMENT DIRECTOR Urine Screen Lab Results Component Value Date [...] Urine pH, Pain Ocasio 6.3 02/24/2021 Specific [place],Ur Pain Ocasio 1.012 02/24/2021 Oxidants,Ur 46 02/24/2021 [...] ineffective - [facility] highly encouraged establishing with counselor - [...] may have been partially generated using the [employer] voice recognition system. While every effort was made to correct voice recognition errors, kindly be aware that some errors may occasionally occur. documented in this encounterSelect Medical Cleveland Clinic [facility]05-31-2023 Miscellaneous Notes* Telephone Encounter - Flori Cartagena RN - 07/18/2022 12:09 PM EDT My chart appointment question response sent. Flori Cartagena RNCC Parole Agent documented in this encounterSelect Medical Cleveland Clinic [facility], [facility]05-31-2023 History of Present illness Narrative* Cyn Hernandez [...] She saw Dr. Alejandro sarmiento at [facility] for 2nd opinion cell([phone]) She agreed with out plan and recommended [...] DATA CBC, CMP, TSH were reviewed [facility]. PET scan report and images were reviewed in [facility]. Results werediscussed with patient and radiation [...] FACP CC: Bee Parra documented in this encounterSelect Medical Cleveland Clinic [facility], [facility]05-31-2023 Instructions* Patient Instructions* Gunjan Joya LPN - 07/18/2022 11:26 AM EDT Follow up with Dr. Hernandez 08/14 at 9:50a PET scan a few days prior documented in this encounterSelect Medical Cleveland [facility], [facility]05-30-2023 History of Present illness Narrative* RT Jabier(Junior) [...] 17, 2022 1:24 PM documented in this encounterSelect Medical Cleveland [facility], [facility]05-30-2023 Miscellaneous Notes* Telephone Encounter - Irene Han [...] advise. Kylie Mosher RN documented in this encounterSelect Medical Cleveland Clinic [facility], [facility]04-28-2023 Miscellaneous Notes* Telephone Encounter - Don Chan [...] medication in stock and I spoke with pipe organ technician Jackson who states they have 1 box in stock. Please advise. * Telephone Encounter - HILARY Dougherty - 06/13/2022 1:16 PM EDT Celso Weller called today. : 1980 Allergies: Chlorhexidine and Sulfa (Sulfonamide Antibiotics) (home) [phone] (cell) Reason for call: Patient states that at the last office visit 06/04/22 the provider was going to call in [facility]. She states it was not called in . Please advise. e- [id number] [place] [address] - [address] [facility] - [phone] [address] [address] [id number] Patient last appointment: 06/04/2022 The patients preferred pharmacy has been captured for this encounter? yes HILARY Dougherty documented in this encounterSelect Medical Cleveland Clinic [facility]04-25-2023 Miscellaneous Notes* Telephone Encounter - Irene Han APRN.CNP - 06/12/2022 12:06 PM EDT PDMP website checked and validated. All prescriptions have been APPROPRIATELY filled. No suspiciousactivity was identified. 06/12/2022 by Irene Han APRN.TRAINING AND DEVELOPMENT DIRECTOR Rx sent Irene Han APRN.PEDRO * Telephone [...] advise. Kylie Mosher RN documented in this encounterSelect Medical Cleveland Clinic [facility], [facility]04-25-2023 Instructions* Patient Instructions* Gunjan Joya LPN - 06/12/2022 11:09 AM EDT Pt will schedule CT Follow up with Dr. Hernandez 07/17 or 07/18 Schedule treatment 07/24 documented in this encounterSelect Medical Cleveland Clinic [facility], [facility]04-25-2023 Nurse Note* Vannessa Lopez Ma - 06/12/2022 10:50 AM EDT Called patient and got the voice mail. Left message to remind patient about the vv scheduled today at 10:50 am with documented in this encounterSelect Medical Cleveland Clinic [facility], [facility]04-25-2023 History of Present illness Narrative* Cyn Hernandez MD - 06/12/2022 10:45 AM EDT [facility] VISIT This visit is a Virtual [facility] video visit encounter which required patient- provider interaction for the medical decision making as documented below. Persons Present: patient I have communicated my name and active licensure. The patient s identity and physical location wereverified at the time of this visit. Celso Weller or their legal graphic art sales representative has been informed ofthe risks and benefits of -- and alternatives to -- treatment through a remote evaluation and consents to proceed with the evaluation remotely. Total Time Spent: 5-10 minutes on this telephone encounter HISTORY REVIEWED (electronic chart updated): - medical history - medications - allergies Interval history: Patient tried to log into [facility] video visit virtual visit. Was not able [...] resuming Cyn Hernandez MD documented in this encounterSelect Medical Cleveland Clinic [facility]04-13-2023 History of Present illness Narrative* Katarzyna Dover [...] 31, 2022 7:59 AM documented in this encounterSelect Medical Cleveland Clinic [facility]04-03-2023 History of Present illness Narrative* Jane Del Valle MD - 05/21/2022 9:28 AM EDT No show. Jane Del Valle MD, MSc, MRCP, FRCR, DABR Radiation Oncology Staff Physician May 21, 2022 9:28 AM documented in this encounterSelect Medical Cleveland Clinic [facility]03-08-2023 Miscellaneous Notes* Telephone Encounter - Char Elder [...] questions or concerns or Radiation Oncology Fellow Nutritional Services Host after 5pm and on weekends for urgent issues. Patient verbalized understanding of when to seek medical attention and after hours number protocol. Follow up appointment: Reminded patient of virtual visit on 05/18/2022 with Sarah Carranza, RN documented in this encounterSelect Medical Cleveland Clinic [facility]03-06-2023 Instructions* Patient Instructions* Irene Han APRN.PEDRO - 04/23/2022 10:30 AM EST Irene Han CNP Department of Palliative and Supportive Care Palliative Care - Specialty services in symptom management and support For questions or prescription refills, call: [phone] Saturday - Saturday 9AM-5PM ERVIN Corrales, RN - Autoclave Operator Please call 3-5 days in advance for medication refills Evenings, Weekends, Holidays: [phone] (ask for palliative medicine on-call provider) For appointments, cancellations or reschedule, call: [phone] documented in this encounterSelect Medical Cleveland Clinic [facility]03-06-2023 History of Present illness Narrative* Irene Han APRN.CNP - 04/23/2022 9:56 AM EST PALLIATIVE [...] as weather changes to spring. Modified ESAS ([place] Symptom Assessment Scale) Information Provided By: Patient [...] suspiciousactivity was identified. 04/23/2022 by Irene Han APRN.TRAINING AND DEVELOPMENT DIRECTOR Urine Screen Lab Results Component Value Date [...] Urine pH, Pain Ocasio 6.3 02/24/2021 Specific [place],Ur Pain Ocasio 1.012 02/24/2021 Oxidants,Ur 46 02/24/2021 [...] in person Irene Han APRN.PEDRO April 23, 2022 9:56 AM This note may have been partially generated using the [employer] voice recognition system. While every effort was made to correct voice recognition errors, kindly be aware that some errors may occasionally occur. documented in this encounterSelect Medical Cleveland Clinic [facility]03-03-2023 Miscellaneous Notes* Telephone Encounter - Char Elder [...] M.D. Char MUELLER, RN documented in this encounterSelect Medical Cleveland Clinic [facility], [facility]02-27-2023 Miscellaneous Notes* Telephone Encounter - Irene Han APRN.CNP - 04/16/2022 1:38 PM EST PDMP website checked and validated. All prescriptions have been APPROPRIATELY filled. No suspiciousactivity was identified. 04/16/2022 by Irene Hna APRN.PEDRO Rx sent Irene Han APRN.PEDRO * [...] advise. Kylie Mosher RN documented in this encounterSelect Medical Cleveland Clinic [facility]02-22-2023 History of Present illness Narrative* Jane Del Valle MD - 04/11/2022 12:00 AM EST CELSO WELLER [id number] 04/11/2022 [facility] Department of Radiation Oncology [facility] RADIATION ONCOLOGY: COMPLETION NOTE DATE OF SIMULATION: 03/23/2022 DATES OF TREATMENT: 04/02/2022 to 04/06/2022 TREATMENT MACHINE: [employer] TREATMENT AREA: Right mesenteric LN DIAGNOSIS: 39 [...] M.D. Staff Physician Jane Del Valle M.D :47 PM Electronically Signed cc: Bee Vail MD [id number] [place] [address] [place] [id number] [facility] [id number] documented in this encounterSelect Medical Cleveland Clinic [facility], [facility]02-06-2023 History of Present illness Narrative* Jane Del [...] medical record and/or letter via U.S. Mail. [facility] in the care of this individual. I spent over 50% of a total lgea-zk-nzqh time of 60-80 minutes, counseling/coordinating patient care. Jane Del Valle MD, MSc, MRCP, FRCR, DABR Radiation Oncology Staff Physician March 26, 2022 11:25 AM documented in this encounterSelect Medical Cleveland Clinic [facility]02-03-2023 Nurse Note* Rosales Lane LPN - 03/23/2022 9:18 AM EST Radiation Oncology Nursing Note PATIENT NAME: Celso Weller PATIENT [facility] FACILITY/LOCATION: [facility] [place] PROCEDURE: Contrast Injection for CT Simulation Safety Checks Patient identified using 2 identifiers: Yes NPO x 4 hours verified: Yes Creatinine level drawn within the last 60 days: Yes Creatinine level within normal limits: Yes IV start: Time: 857. #22g angiocath placed in the Right AC. Positive blood return verified: Yes Physician order for contrast injection verified: Yes Patient's allergies verified, including CT contrast: Yes Is the patient having any pain? None. 0 on a scale of 0 to 10. Concerns about physical or emotional abuse: No Fall risk: No SIGNED by Rosales Lane LPN Radiation Therapy - Patient Education Note PATIENT NAME: Celso Weller PATIENT March 23, 2022 [facility] FACILITY/LOCATION: [facility] [place] READINESS TO LEARN Cognitive Ability: Alert and [...] need for social work, van service, and bowling ball finisher. Was KP approved? No KP completed and on 03/07/22 scored 0 distress. Signed by: Rosales Lane LPN documented in this encounterSelect Medical Cleveland Clinic [facility]02-03-2023 History of Present illness Narrative* [facility] Provider - 03/23/2022 12:00 AM EST CELSO WELLER [id number] 03/23/2022 [facility] Department of Radiation Oncology [facility] RADIATION ONCOLOGY - Therapist Injection Note [...] Disposition: HOME Therapist: magali documented in this encounterSelect Medical Cleveland Clinic [facility]02-03-2023 History of Present illness Narrative* Jane Del Valle MD - 03/23/2022 12:00 AM EST CELSO WELLER [id number] 03/23/2022 [facility] Department of Radiation Oncology Treatment Planning [...] Valle M.D. 37:10 AM documented in this encounterSelect Medical Cleveland Clinic [facility]02-02-2023 Miscellaneous Notes* Telephone Encounter - Dary Gonzalez [...] radiation. Dary Gonzalez RN documented in this encounterSelect Medical Cleveland Clinic [facility], [facility]01-29-2023 History of Present illness Narrative* Jane Del [...] C No.3 (B COMPLEX PLUS VITAMIN C) 98-84-91-5-300 mg cap^Take 1 tablet by mouth once [...] I spent over 50% of a total eedy-bh-enqu time of 60-80 minutes, counseling/coordinating patient care. Signed by: Jane Del Valle MD, MSc, MRCP, FRCR, DABR Radiation Oncology Staff Physician March 18, 2022 11:55 PM cc: Bee Vail [address] [address] No referring provider defined for this encounter. documented in this encounterSelect Medical Cleveland Clinic [facility]01-26-2023 Miscellaneous Notes* Telephone Encounter - Flori Cartagena [...] RN * Telephone Encounter - Irene Han APRN.PEDRO - 03/15/2022 12:58 PM EST PDMP website checked and validated. All prescriptions have been APPROPRIATELY filled. No suspiciousactivity was identified. 03/15/2022 by Irene Han APRN.TRAINING AND DEVELOPMENT DIRECTOR Rx sent Irene Han APRN.TRAINING AND DEVELOPMENT DIRECTOR * Telephone Encounter - Flori Cartagena RN [...] advise. Flori Cartagena RN documented in this encounterSelect Medical Cleveland Clinic [facility], [facility]01-18-2023 Instructions* Patient Instructions* Mackenzie Woods LPN - 03/07/2022 11:47 AM EST Unarrive tx today Schedule Office visit with Dr Hernandez 03/28/22 @11:30am per Dr Hernandez documented in this encounterSelect Medical Cleveland Clinic [facility], [facility]01-18-2023 History of Present illness Narrative* Cyn Hernandez [...] She saw Dr. Alejandro sarmiento at [facility] for 2nd opinion cell([phone]) She agreed with out plan and recommended [...] the spleen, liver and lymph node at [facility] Interval history: patient is here for follow-up [...] DATA CBC, CMP, TSH were reviewed in [facility]. PET scan report and images were reviewed in [facility]. Results werediscussed with patient and radiation [...] FACP CC: Bee Parra documented in this encounterSelect Medical [facility] History of Present illness Narrative* Jeny Nava [...] 1145 PATIENT DISCHARGED TO: Ambulatory patient, left [place] department area. A Diagnostic radioactive procedure has taken place, with no further precautions necessary other than routine body substance precautions. More information regarding radiation safety can be found usingthis link: [email or web address]-% 20Diagnostic%20Nuclear%20Medicine%20Procedures.pdf SIGNATURE: DIMA Julien) PATIENT NAME: Celso Weller DATE: February 26, 2022 TIME: 12:03 PM PAGER/CONTACT #: documented in this encounterSelect Medical [facility]12-08-2022 Instructions* Patient Instructions* Irene Han APRN.TRAINING AND DEVELOPMENT DIRECTOR - 01/25/2022 2:57 PM EST JORGE GarsiaC Department of Palliative and Supportive Care Palliative Care - Specialty services in symptom management and support For questions or prescription refills, call: [phone] Saturday - Saturday 9AM-5PM ERVIN Corrales, RN - Autoclave Operator Please call 3-5 days in advance for medication refills Evenings, Weekends, Holidays: [phone] (ask for palliative medicine on-call provider) For appointments, cancellations or reschedule, call: [phone] documented in this encounterSelect Medical [facility]12-08-2022 NoteHNO ID: [id number] Author: Irene Han APRN.CNP Service: ? Author Type: Nurse Practitioner [...] for symptom control needs. Subjective Last [facility] care visit 10/26/21 Presents today alone. Reports [...] treadmill. She will be meeting with a background check coordinator to better understand the equipment upcoming. Has had some nausea since starting doxy for acne. Responsive to Compazine. Modified ESAS ([place] Symptom Assessment Scale) Information Provided By: Patient [...] activity was identified. 01/25/2022 by Irene Han APRN.TRAINING AND DEVELOPMENT DIRECTOR Urine Screen Lab Results Component Value Date [...] <5 02/24/2021 Methamphetamine Q (more content not included)...[facility] [id number] History of Present illness Narrative* Irene Han APRN.TRAINING AND DEVELOPMENT DIRECTOR - 01/25/2022 10:55 AM EST PALLIATIVE MEDICINE [...] for symptom control needs. Subjective Last [facility] care visit 10/26/21 Presents today alone. Reports [...] treadmill. She will be meeting with a background check coordinator to better understand the equipment upcoming. Has had some nausea since starting doxy for acne. Responsive to Compazine. Modified ESAS ([place] Symptom Assessment Scale) Information Provided By: Patient [...] suspiciousactivity was identified. 01/25/2022 by Irene Han APRN.TRAINING AND DEVELOPMENT DIRECTOR Urine Screen Lab Results Component Value Date [...] Urine pH, Pain Ocasio 6.3 02/24/2021 Specific [place],Ur Pain Ocasio 1.012 02/24/2021 Oxidants,Ur 46 02/24/2021 [...] 25, 2022 10:55 AM documented in this encounterSelect [facility]12-05-2022 Miscellaneous Notes* Telephone Encounter - Kylie Mosher [...] advise. Kylie Mosher RN documented in this encounterSelect Medical [facility]11-30-2022 Miscellaneous Notes* Telephone Encounter - Gunjan Joya LPN - 01/17/2022 9:10 AM EST Spoke with patient, rescheduled appt for tomorrow documented [facility] this [facility]11-29-2022 Miscellaneous Notes* Telephone Encounter - Irene Han APRN.CNP - 01/16/2022 2:34 PM EST PDMP website checked and validated. All prescriptions have been APPROPRIATELY filled. No suspiciousactivity was identified. 01/16/2022 by Irene Han APRN.CNP Rx sent Irene [...] advise. Kristina Pete RN documented in this encounterSelect Medical [facility]11-15-2022 Miscellaneous Notes* Telephone Encounter - Caro Srinivasan RN - 01/02/2022 3:41 PM EST [facility] Care Coordination FOLLOW-UP NOTE Patient identified by name and date of . YES Spoke to voicemail-full so unable to leave message x2 Summary: (Reason for follow-up) Chest tightness Pulmonary f/u needed Echocardiogram needed Concerns: (New Barriers to care) Caro Srinivasan RN January 02, 2022 documented in this encounterSelect Medical [facility]11-09-2022 History of Present illness Narrative* Sylvia Mancilla APRN.TRAINING AND DEVELOPMENT DIRECTOR - 12/27/2021 9:30 AM EST Oncology Progress [...] She saw Dr. Alejandro sarmiento at [facility] for 2nd opinion cell([phone]) She agreed with out plan and recommended [...] and TSH, sed rate were reviewed in [facility]. ASSESSMENT AND PLAN: 1. Relapsed Hodgkin [...] the visit. Sylvia Mancilla APRN.PEDRO Hematology/Oncology Janae LopesNancy Ortiz/ [facility] [phone] CC: Bee Parra documented in this encounterSelect Medical [facility]10-31-2022 Miscellaneous Notes* Telephone Encounter - Cheryl Guerrero [...] advise. Kylie Mosher RN documented in this encounterSelect Medical [facility]10-20-2022 Instructions* Patient Instructions* Nova Leija APRN.PEDRO - 12/07/2021 9:25 AM EDT Acne [...] under eye as needed documented in this encounterSelect Medical [facility]10-20-2022 History of Present illness Narrative* Nova Leija [...] C No.3 (B COMPLEX PLUS VITAMIN C) 94-07-58-5-300 mg cap Take 1 tablet by mouth [...] Past Histories independently gathered by the clinical decision support analyst and the remaining scribed note accurately describes my personal service to the patient. Nova Leija APRN.CNP December 07, 2021 9:39 AM I spent a total of 25 minutes on the date of the service which included hyyf-lw-gojc patient care, completing clinical documentation, performing a medically appropriate examination, counseling and educating the patient/family/caregiver, and ordering medications, tests, or procedures. documented in this encounterSelect Medical Cleveland [facility]09-28-2022 History of Present illness Narrative* Cyn Hernandez [...] She saw Dr. Alejandro sarmiento at [facility] for 2nd opinion cell([phone]) She agreed with out plan and recommended [...] and TSH, sed rate were reviewed in [facility]. ASSESSMENT AND PLAN: 1. Relapsed Hodgkin [...] FACP CC: Bee Parra documented in this encounterSelect Medical Cleveland Clinic [facility]09-26-2022 Miscellaneous Notes* Telephone Encounter - Jeny Nava RN - 11/13/2021 8:35 AM EDT I have pended a CBC for Celso that she requested with her other labs. Please sign if agreeable. Thank you, MAE Valentin, [facility] documented in this encounterSelect Medical [facility]09-26-2022 History of Present illness Narrative* Jeny Nava [...] 832 PATIENT DISCHARGED TO: Ambulatory patient, left [place] department area. A Diagnostic radioactive procedure has taken place, with no further precautions necessary other than routine body substance precautions. More information regarding radiation safety can be found usingthis link: [email or web address] 20Diagnostic%20Nuclear%20Medicine%20Procedures.pdf SIGNATURE: RT Anaya(Junior) PATIENT NAME: Celso Weller DATE: November 13, 2021 TIME: 8:48 AM PAGER/CONTACT #: documented in this encounterSelect Medical [facility]09-08-2022 NoteHNO ID: [id number] Author: Irene Han APRN.TRAINING AND DEVELOPMENT DIRECTOR Service: ? Author Type: Nurse Practitioner Type: [...] care with [facility]. Did not [...] upcoming PET scan will show. Modified ESAS ([place] Symptom Assessment Scale) Information Provided By: Patient [...] activity was identified. 10/26/2021 by Irene Han APRN.PEDRO Urine Screen Lab Results Component Value (more content not included)...[facility] HospitalAwpgdrrh90-63-0915 History of Present illness Narrative* Irene Han [...] upcoming PET scan will show. Modified ESAS ([place] Symptom Assessment Scale) Information Provided By: Patient [...] suspiciousactivity was identified. 10/26/2021 by Irene Han APRN.TRAINING AND DEVELOPMENT DIRECTOR Urine Screen Lab Results Component Value Date [...] Urine pH, Pain Ocasio 6.3 02/24/2021 Specific [place],Ur Pain Ocasio 1.012 02/24/2021 Oxidants,Ur 46 02/24/2021 [...] 26, 2021 11:07 AM documented in this encounterSelect Medical [facility]09-07-2022 History of Present illness Narrative* Sylvia Mancilla [...] She saw Dr. Alejandro sarmiento at [facility] for 2nd opinion cell([phone]) She agreed with out plan and recommended [...] the spleen, liver and lymph node at [facility] Interval history: Ms. Weller is here for follow up and C#31 pembro. Patient went to [place] ED 09/20/21 with fever, chills,fatigue. Tested positive [...] and TSH, sed rate were reviewed in [facility]. ASSESSMENT AND PLAN: 1. Relapsed Hodgkin [...] Janae Ortiz/ [facility] [phone] CC: Bee Parra documented in this encounterSelect Medical [facility]09-07-2022 Instructions* Patient Instructions* Sylvia Mancilla APRN.CNP - 10/25/2021 10:00 AM EDT Call the office with questions or concerns. Go to ER with any signs of infection like fever of 100.4 or higher. documented in this encounterSelect Medical [facility]08-29-2022 Miscellaneous Notes* Telephone Encounter - Irene Han [...] advise. Kristina Pete RN documented in this encounterSelect Medical [facility]08-15-2022 Miscellaneous Notes* Telephone Encounter - Joanne Jade [...] DAILY Elaine Enriquez LPN documented in this encounterSelect Medical [facility]08-05-2022 Miscellaneous Notes* Telephone Encounter - Caro Srinivasan [...] Patient reminded of her follow-up appointment with [facility] provider, 10/04/21 Keytruda infusion and then 10/25 OV E Gross and infusion: Yes Next Autoclave Operator outreach with patient scheduled? No, appointment made PATIENT EDUCATION/REINFORCEMENT Patient has information of when to seek Medical Attention? YES Patient has information of after hours and weekend phone number? YES Caro Sriinvasan RN documented in this encounterSelect Medical [facility]07-19-2022 History of Present illness Narrative* Nova Leija APRN.TRAINING AND DEVELOPMENT DIRECTOR - 09/05/2021 5:43 PM EDT SKIN EXAM [...] around outside [place]hes with [employer] brand giselicleleonardo History of hidradenitis: clindamycin lotion topically to [...] C No.3 (B COMPLEX PLUS VITAMIN C) 88-86-46-5-300 mg cap Take 1 tablet by mouth [...] Past Histories independently gathered by the clinical decision support analyst and the remaining scribed note accurately describes my personal service to the patient. Nova Leija APRN.CNP September 05, 2021 5:59 PM documented in this encounterSelect Medical [facility]07-18-2022 Miscellaneous Notes* Telephone Encounter - Flori Cartagena RN - 09/04/2021 11:32 AM EDT Pall med nurse call to patient and inquired if she was with [facility] Palliative care and she [...] advise. Flori Cartagena RN documented in this encounterSelect Medical [facility]06-28-2022 History of Present illness Narrative* Bee Singleton, RT(R) - 08/15/2021 12:45 PM EDT RADIOLOGY SERVICE PROGRESS NOTE SERVICE DATE: 08/15/2021 SERVICE TIME: 2:05 PM PATIENT IDENTITY VERIFICATION COMPLETED USING TWO (2) STANDARD IDENTIFIERS: Name and Date of confirmed by patient verbally POST EXAM PIV STATUS: Discontinued PROCEDURE TYPE: NM INJECT: PET/CT BODY SCAN. 11.6 mCi F18 FDG. No other medications given.. ADMINISTRATION TIME: 1256 PATIENT DISCHARGED TO: Ambulatory patient, left [place] department area. A Diagnostic radioactive procedure has taken place, with no further precautions necessary other than routine body substance precautions. More information regarding radiation safety can be found usingthis link: [email or web address]-% 20Diagnostic%20Nuclear%20Medicine%20Procedures.pdf SIGNATURE: RT Anaya(R) PATIENT NAME: Celso Weller DATE: August 15, 2021 TIME: 2:05 PM PAGER/CONTACT #: documented in this encounterSelect Medical Cleveland Clinic [facility], [facility]06-28-2022 Miscellaneous Notes* Telephone Encounter - Irene Rai [...] is not able to start care with [facility] until middle of August. Will need refills until she establishes. Patient phones requesting refills as follows: Pending Prescriptions Disp Refills OXYCODONE 10 MG TABLET 120 tablet 0 Sig: Take 1 tablet by mouth every 4 hours as needed (moderate-severe cancer pain) for up to 30 days. SHELBIE Class: C-II KAREN: No Please review and advise. Kristina Pete RN documented in this encounterSelect Medical [facility]06-16-2022 Miscellaneous Notes* Telephone Encounter - Kristina Pete RN - 08/03/2021 8:21 AM EDT Patient has requested palliative services closer to her home referral faxed to [facility] palliative care. [phone] Kristina Pete RN documented in this encounterSelect Medical [facility]06-10-2022 History of Present illness Narrative* Nova LORY Leija.TRAINING AND DEVELOPMENT DIRECTOR - 07/28/2021 7:59 AM EDT SKIN EXAM [...] C No.3 (B COMPLEX PLUS VITAMIN C) 34-72-00-5-300 mg cap Take 1 tablet by mouth [...] 300 mg BID until completed (from ED) retirement management -continue topical clindamycin 1% lotion [...] the following reflects his/her service. Scribed by Rosales Pedersen RN / Janice Miller MA I agree with the Chief Complaint, ROS, and Past Histories independently gathered by the clinical decision support analyst and the remaining scribed note accurately describes my personal service to the patient. Nova Leija APRN.PEDRO July 28, 2021 8:03 AM documented in this encounterSelect Medical [facility]05-24-2022 Miscellaneous Notes* Telephone Encounter - Irene Han APRN.PEDRO - 2021 11:31 AM EDT PDMP website checked and validated. All prescriptions have been APPROPRIATELY filled. No suspiciousactivity was identified. 2021 by Irene Han APRN.CNP Last Palliative Care visit: 05/17/21 Next scheduled Palliative Care visit: 08/02/21 Rx sent. Earliest fill 07/14/21 Irene Han APRN.PEDRO * Telephone Encounter - [...] advise. Flori Cartagena RN documented in this encounterSelect Medical [facility]05-13-2022 Miscellaneous Notes* Telephone Encounter - Joanne Jade [...] No Elaine Enriquez LPN documented in this encounterSelect Medical [facility]04-28-2022 Miscellaneous Notes* Telephone Encounter - Irene Han APRN.PEDRO - 06/15/2021 5:05 PM EDT PDMP website checked and validated. All prescriptions have been APPROPRIATELY filled. No suspiciousactivity was identified. 06/15/2021 by Irene Han APRN.TRAINING AND DEVELOPMENT DIRECTOR Rx sent Irene Han APRN.TRAINING AND DEVELOPMENT DIRECTOR * Telephone Encounter - Kristina Pete RN - 06/15/2021 4:43 PM EDT Patient phones requesting refills as follows: Pending Prescriptions Disp Refills OXYCODONE 10 MG TABLET 120 tablet 0 Sig: Take 1 tablet by mouth every 4 hours as needed (moderate-severe cancer pain) for up to 30 days. SHELBIE Class: C-II KAREN: No Please review and advise. Kristina Pete RN documented in this encounterSelect Medical [facility]04-27-2022 History of Present illness Narrative* Cyn Hernandez [...] She saw Dr. Alejandro sarmiento at [facility] for 2nd opinion cell([phone]) She agreed with out plan and recommended [...] and TSH, sed rate were reviewed in [facility]. ASSESSMENT AND PLAN: 1. Relapsed Hodgkin [...] FACP CC: Bee Parra documented in this encounterSelect Medical [facility]04-01-2022 Miscellaneous Notes* Telephone Encounter - Marilyn Hughes RN - 05/19/2021 9:09 AM EDT Pt with c/o sinus congestion, headache, cough, fatigue, T Max 101.3 last evening, then 'fever broke' afebrile this am. Dr Hernandez notified and Z-pack sent to preferred pharmacy. Pt aware to call for worsening symptoms or temp >100.4 . Verbalized acknowledgement. Marilyn Hughes, RN documented in this encounterSelect Medical [facility]03-30-2022 Miscellaneous Notes* Telephone Encounter - RHETT Mesa - 05/17/2021 2:31 PM EDT SOCIAL WORK FOLLOW UP NOTE: [facility] Date of service:05/17/2021 Celso Weller is [...] resource F/U APPOINTMENT: PRN GALLO Mesa Senior Formal Waiter/Waitress [facility] documented in this encounterSelect Medical [facility]03-30-2022 Miscellaneous Notes* Telephone Encounter - RHETT Mesa - 05/17/2021 1:58 PM EDT SOCIAL WORK FOLLOW UP NOTE: [facility] Date of service:05/17/2021 Celso Weller is being seen for a follow up social work visit. Today's visit includes: patient TOPICS ADDRESSED: mental health needs Advised patient that SRINIVASAN Garsia from [facility] asked me to give patient local behavioral health resources. I forwarded this request to MATILDE Spear, who is a behavior health social service manager and is expert in these types of resources. I advised patient that Katarzyna should be reaching out to her. PLAN: Continue follow up as needed F/U APPOINTMENT: PRN GALLO Mesa Senior Formal Waiter/Waitress [facility] documented in this encounterSelect Medical [facility]03-30-2022 Instructions* Patient Instructions* Irene Han APRN.TRAINING AND DEVELOPMENT DIRECTOR - 05/17/2021 11:35 AM EDT JORGE GarsiaC Department of Palliative and Supportive Care Palliative Care - Specialty services in symptom management and support For questions or prescription refills, call: Saturday - Saturday 9AM-5PM Chantal Newberry RN, BSN - Autoclave Operator [phone] Please call 5 days in advance Evenings, Weekends, Holidays: [phone] (ask for palliative medicine on-call provider) For appointments, cancellations or reschedule, call: [phone] documented in this encounterSelect Medical Cleveland [facility]03-30-2022 History of Present illness Narrative* Irene Han [...] (on AC). She is transferring care to [facility] for palliative care. She has previously followed with Dr. Mosquera (last appt 04/12/2020) for management of anxiety, depression, neuropathy, and pain. Subjective Celso presents today alone. Reports feeling fairly well. Recently returned from vacation with friends in [place] where she had a great time although [...] Dr. Mosquera at last visit. Modified ESAS ([place] Symptom Assessment Scale) Information Provided By: Patient [...] suspiciousactivity was identified. 05/17/2021 by Irene Han APRN.TRAINING AND DEVELOPMENT DIRECTOR Urine Screen Lab Results Component Value Date [...] Urine pH, Pain Ocasio 6.3 02/24/2021 Specific [place],Ur Pain Ocasio 1.012 02/24/2021 Oxidants,Ur 46 02/24/2021 [...] 17, 2021 7:01 AM documented in this encounterSelect Medical Cleveland Clinic [facility]12-28-2021 History of Present illness Narrative* Bee Singleton, RT(R) - 02/14/2021 12:15 PM EST RADIOLOGY SERVICE PROGRESS NOTE SERVICE DATE: 02/14/2021 SERVICE TIME: 12:47 PM PATIENT IDENTITY VERIFICATION COMPLETED USING TWO (2) STANDARD IDENTIFIERS: Name and Date of confirmed by patient verbally POST EXAM PIV STATUS: Discontinued PROCEDURE TYPE: NM INJECT: PET/CT BODY SCAN. 12.3 mCi F18 FDG. No other medications given.. ADMINISTRATION TIME: 1239 PATIENT DISCHARGED TO: Ambulatory patient, left [place] department area. A Diagnostic radioactive procedure has taken place, with no further precautions necessary other than routine body substance precautions. More information regarding radiation safety can be found usingthis link: [email or web address] 20Diagnostic%20Nuclear%20Medicine%20Procedures.pdf SIGNATURE: RT Anaya(R) PATIENT NAME: Celso Weller DATE: February 14, 2021 TIME: 12:47 PM PAGER/CONTACT #: documented in this encounterSelect Medical Cleveland Clinic [facility]12-28-2021 Nurse Note* Mitzi Alcantara RN - 02/14/2021 [...] DATE: February 14, 2021 TIME: 12:29 PM [facility]12-28-2021 Nurse Note* Mitzi Alcantara RN - 02/14/2021 [...] 2021 TIME: 12:29 PM documented in this encounterSelect Medical Cleveland [facility]08-31-2021 History of Past illness Narrative* ProblemNoted DateDiagnosed DateResolved DateRadiation induced qhmloawrcv38/31/202101/Menorrhagia with regular cycle03/15/2017 01/01/2018 Overview: Added automatically from request for surgery [id number] History of pulmonary vjlfsvun79Neoplastic (malignant) related asqybxw33Hidradenitis efinldzxuob52Vitamin D kuvtzcxxyx67HyperCKemiaElevated aldolase levelChronic pain of both kneesPain in joint, multiple sitesMyalgiaFatigue Malaise and kmpdbdq20Gastroesophageal reflux disease without toljsxrvvkl71Laryngitis02/23/2015 12/26/2015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 (poly)qekautnwtl93/10/2015 12/26/2015Papanicolaou smear of cervix with low grade squamous intraepithelial lesion (LGSIL)Pain in joint, ankle and foot09/27/2014 12/26/2015ASCUS favor rftlntpdw85Visit for gynecologic mwkkzkvkvnr78Postmenopausal HRT (hormone replacement therapy) Overview: offered Gait mznnffyrjkq70Weakness of both legs Sprain of ankle, leftPCP (pneumocystis jiroveci pneumonia) Acute respiratory failure with onwsludlt04 Overview: Increased O2 requirement overnight (2L to 5L) - bronchoscopy with BAL/TBLB tomorrow 8 AM. - NPO from midnight - hold tonight dose of lovenox. Radiation dijjkylwiba32 Overview: 40 mg prednisone daily Immunodeficiency with predominant T-cell defect, bohruvkshyv50 Urgency of osgzqbhaaed34Urinary wlkulkezm10 Arm pain, leftBack pain without ceijrzfwx25/19/2014 12/26/2015Abnormal finding on fmvszxg61Elevated sed rate Hyperpigmentation of skin Overview: --resolved --bilateral breast tissue and axilla --order mycolog cream --monitor Pelzzmfy31 Overview: - c diff pending Mucositis (ulcerative) due to antineoplastic lnuaqae46 Overview: --improved --oxy prn --mouth care measures. Sibeof45 Overview: --improved with protonix Elevated LFTs Overview: --increased AST ALT during chemo, resolved. Excess fluid uxwiaf93 Overview: --diuresis as needed --continue to monitor volume status CINV (chemotherapy-induced nausea and vomiting) Overview: --Resolved --Ativan PRN (none used) Peripheral lylcemingi34 Overview: --gabapentin 300mg TID with increased symptoms, bedtime dose of gabapentin increased to 600mg with improvement reported, continue DVT yuinuquazfx03 Overview: --platelet count decreasing, d/c heparin SQ --encourage ambulation Ycqkrbzt10 Overview: --ambien PRN at HS, with relief, but with vivid dreams, ambien d/c --restoril at 30mg PRN at HS with relief, continue Chronic chest pain Overview: --now resolved --since Hodgkin lymphoma diagnosis per patient Hospital discharge follow-up Overview: --Patient will need to follow up with Dr. Unger after discharge Vylxqxzzeqs98 Overview: --patient taking atenolol 100mg BID at home, now BP running lower, decreased atenolol dose to 50mg BID with hypotension. --increase to 75mg BID, d/t tachycardia(HRs >110 while afebrile), HR now controlled, continue --monitor closely Electrolyte and fluid disorders not elsewhere qicecromro85 DISPOSITION AND FOLLOW-UP Overview: 32 yo female from [place], [place]. Family involved with care, at bedside. 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 will start PO pain meds today 10/27. tolerating percocet, pain relatively well controlled. Hodgkin's disease with nodular Overview: Oncology history (per Dr. 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 Hodgkin's disease, fabgqqqkegq18Vaginal kfnvgyjc69/07/2016 Overview: --likely from thrombocytopenia. No menses in prior 8 months. 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 Premature wvlybtdie44/07/2016Postmenopausal atrophic vjmsnuops10/07/2016 Wbefcyuedfd22/07/2016documented as of this encounter (statuses as of 03/28/2023) [facility]08-31-2021 History of Past illness Narrative* ProblemNoted Date Diagnosed DateResolved DateRadiation induced vwtfhyadif70/31/202101/ Menorrhagia with regular cycle Overview: Added automatically from request for surgery [id number] History of pulmonary miysgwch64Neoplastic (malignant) related yzdssji53Hidradenitis ddksrfhkwfc21Vitamin D ddpbftmmwj10HyperCKemiaElevated aldolase levelChronic pain of both kneesPain in joint, multiple sitesMyalgiaFatigue Malaise and oyzsjkr27Gastroesophageal reflux disease without ubwgqaeqviv69Laryngitis02/23/2015 12/26/2015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 (poly)shgivgevfr71/10/2015 12/26/2015Papanicolaou smear of cervix with low grade squamous intraepithelial lesion (LGSIL)Pain in joint, ankle and foot09/27/2014 12/26/2015ASCUS favor ucsqodfkh35Visit for gynecologic ntyhqymlzaz56Postmenopausal HRT (hormone replacement therapy) Overview: offered Gait iguvgrutzzc00Weakness of both legs Sprain of ankle, leftPCP (pneumocystis jiroveci pneumonia) Acute respiratory failure with Overview: Increased O2 requirement overnight (2L to 5L) - bronchoscopy with BAL/TBLB tomorrow 8 AM. - NPO from midnight - hold tonight dose of lovenox. Radiation wkxmthghaxo34 Overview: 40 mg prednisone daily Immunodeficiency with predominant T-cell defect, ojlmfidyuuj59 Urgency of tgtfolpfeef92Urinary dzuhanjfq71 Arm pain, leftBack pain without pnjinicax92/19/2014 12/26/2015Abnormal finding on agvutdf85Elevated sed rate Hyperpigmentation of skin Overview: --resolved --bilateral breast tissue and axilla --order mycolog cream --monitor Ivzsuaeq36 Overview: - c diff pending Mucositis (ulcerative) due to antineoplastic ewhpmbc43 Overview: --improved --oxy prn --mouth care measures. Jzqpei25 Overview: --improved with protonix Elevated LFTs Overview: --increased AST ALT during chemo, resolved. Excess fluid ejiizj66 Overview: --diuresis as needed --continue to monitor volume status CINV (chemotherapy-induced nausea and vomiting) Overview: --Resolved --Ativan PRN (none used) Peripheral vdiuzoreur61 Overview: --gabapentin 300mg TID with increased symptoms, bedtime dose of gabapentin increased to 600mg with improvement reported, continue DVT okmophesynh28 Overview: --platelet count decreasing, d/c heparin SQ --encourage ambulation Mxxqogtz97 Overview: --ambien PRN at HS, with relief, but with vivid dreams, ambien d/c --restoril at 30mg PRN at HS with relief, continue Chronic chest pain Overview: --now resolved --since Hodgkin lymphoma diagnosis per patient Hospital discharge follow-up Overview: --Patient will need to follow up with Dr. Unger after discharge Zdfrzrrvfxv90 Overview: --patient taking atenolol 100mg BID at home, now BP running lower, decreased atenolol dose to 50mg BID with hypotension. --increase to 75mg BID, d/t tachycardia(HRs >110 while afebrile), HR now controlled, continue --monitor closely Electrolyte and fluid disorders not elsewhere zuhfrxsazh22 DISPOSITION AND FOLLOW-UP Overview: 32 yo female from [place], [place]. Family involved with care, at bedside. 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 will start PO pain meds today 10/27. tolerating percocet, pain relatively well controlled. Hodgkin's disease with nodular junuqbaff49 Overview: Oncology history (per Dr. 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 Hodgkin's disease, lyaixyapxbp27Vaginal omqcgixs81/07/2016 Overview: --likely from thrombocytopenia. No menses in prior 8 months. 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 Premature oaoamfhpk41/07/2016Postmenopausal atrophic /07/2016 Yirospjivdr44/07/2016documented as of this encounter (statuses as of 03/28/2023) [facility]08-31-2021 History of Past illness Narrative* ProblemNoted Date Diagnosed DateResolved DateRadiation induced twlcoaavar75/31/202101/ Menorrhagia with regular cycle Overview: Added automatically from request for surgery [id number] History of pulmonary oulvhgxf52Neoplastic (malignant) related zcyvmod95Hidradenitis krjadywgens08Vitamin D jqmrlcrcsw78HyperCKemiaElevated aldolase levelChronic pain of both kneesPain in joint, multiple sitesMyalgiaFatigue Malaise and tcjkkzr04Gastroesophageal reflux disease without rkueiuuqotc67Laryngitis02/23/2015 12/26/2015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 (poly)vmqcqbogup04/10/2015 12/26/2015Papanicolaou smear of cervix with low grade squamous intraepithelial lesion (LGSIL)Pain in joint, ankle and foot09/27/2014 12/26/2015ASCUS favor tvtwakewu70Visit for gynecologic fswnvqsnvgc44Postmenopausal HRT (hormone replacement therapy) Overview: offered Gait smkoueqbebk75Weakness of both legs Sprain of ankle, leftPCP (pneumocystis jiroveci pneumonia) Acute respiratory failure with ozrijhmrn29 Overview: Increased O2 requirement overnight (2L to 5L) - bronchoscopy with BAL/TBLB tomorrow 8 AM. - NPO from midnight - hold tonight dose of lovenox. Radiation lbifeyrrnci97 Overview: 40 mg prednisone daily Immunodeficiency with predominant T-cell defect, nvdjawywcvq41 Urgency of ucyboknitxy39Urinary bjhoikqsf72 Arm pain, leftBack pain without ognwxjsyt77/19/2014 12/26/2015Abnormal finding on vogfica72Elevated sed rate Hyperpigmentation of skin Overview: --resolved --bilateral breast tissue and axilla --order mycolog cream --monitor Grgvskui97 Overview: - c diff pending Mucositis (ulcerative) due to antineoplastic Overview: --improved --oxy prn --mouth care measures. Wlnakx61 Overview: --improved with protonix Elevated LFTs Overview: --increased AST ALT during chemo, resolved. Excess fluid pjojms46 Overview: --diuresis as needed --continue to monitor volume status CINV (chemotherapy-induced nausea and vomiting) Overview: --Resolved --Ativan PRN (none used) Peripheral gxysaluaxu80 Overview: --gabapentin 300mg TID with increased symptoms, bedtime dose of gabapentin increased to 600mg with improvement reported, continue DVT wocugfhqqrx44 Overview: --platelet count decreasing, d/c heparin SQ --encourage ambulation Oloxcqeb89 Overview: --ambien PRN at HS, with relief, but with vivid dreams, ambien d/c --restoril at 30mg PRN at HS with relief, continue Chronic chest pain Overview: --now resolved --since Hodgkin lymphoma diagnosis per patient Hospital discharge follow-up Overview: --Patient will need to follow up with Dr. Unger after discharge Okwdwoncfil69 Overview: --patient taking atenolol 100mg BID at home, now BP running lower, decreased atenolol dose to 50mg BID with hypotension. --increase to 75mg BID, d/t tachycardia(HRs >110 while afebrile), HR now controlled, continue --monitor closely Electrolyte and fluid disorders not elsewhere cxwfesxivn04 DISPOSITION AND FOLLOW-UP Overview: 32 yo female from [place], [place]. Family involved with care, at bedside. 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 will start PO pain meds today 10/27. tolerating percocet, pain relatively well controlled. Hodgkin's disease with nodular myumcluqq94 Overview: Oncology history (per Dr. 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 Hodgkin's disease, nfazjudgqrj02Vaginal /07/2016 Overview: --likely from thrombocytopenia. No menses in prior 8 months. 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 Premature dvzglytvr03/07/2016Postmenopausal atrophic auegfenkt53/07/2016 Btliwmklsyl67/07/2016documented as of this encounter (statuses as of 03/28/2023) [facility]08-31-2021 History of Past illness Narrative* ProblemNoted Date Diagnosed DateResolved DateRadiation induced lxeqvlssui54/31/202101/ Menorrhagia with regular cycle Overview: Added automatically from request for surgery [id number] History of pulmonary oeydzlsw94Neoplastic (malignant) related onhvknr29Hidradenitis fqjaqmfegde85Vitamin D hjucybqpht75HyperCKemiaElevated aldolase levelChronic pain of both kneesPain in joint, multiple sitesMyalgiaFatigue Malaise and cxfekxa58Gastroesophageal reflux disease without rmiqieldolq39Laryngitis02/23/2015 12/26/2015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 (poly)tuhuzzbczz05/10/2015 12/26/2015Papanicolaou smear of cervix with low grade squamous intraepithelial lesion (LGSIL)Pain in joint, ankle and foot09/27/2014 12/26/2015ASCUS favor fqcbbmftf31Visit for gynecologic hlawdnbknan06Postmenopausal HRT (hormone replacement therapy) Overview: offered Gait cnodntpgoiq40Weakness of both legs Sprain of ankle, leftPCP (pneumocystis jiroveci pneumonia) Acute respiratory failure with Overview: Increased O2 requirement overnight (2L to 5L) - bronchoscopy with BAL/TBLB tomorrow 8 AM. - NPO from midnight - hold tonight dose of lovenox. Radiation krafbdaudwe70 Overview: 40 mg prednisone daily Immunodeficiency with predominant T-cell defect, srudspvhijg06 Urgency of eosjxexzlhl48Urinary hubvngqvl93 Arm pain, leftBack pain without laraktovp38/19/2014 12/26/2015Abnormal finding on tlyahui70Elevated sed rate Hyperpigmentation of skin Overview: --resolved --bilateral breast tissue and axilla --order mycolog cream --monitor Mhkcvkzf08 Overview: - c diff pending Mucositis (ulcerative) due to antineoplastic vuaygov20 Overview: --improved --oxy prn --mouth care measures. Motvbp31 Overview: --improved with protonix Elevated LFTs Overview: --increased AST ALT during chemo, resolved. Excess fluid yrfcmb95 Overview: --diuresis as needed --continue to monitor volume status CINV (chemotherapy-induced nausea and vomiting) Overview: --Resolved --Ativan PRN (none used) Peripheral tkkwymakrv46 Overview: --gabapentin 300mg TID with increased symptoms, bedtime dose of gabapentin increased to 600mg with improvement reported, continue DVT ncykklncepr40 Overview: --platelet count decreasing, d/c heparin SQ --encourage ambulation Sfypuxxe51 Overview: --ambien PRN at HS, with relief, but with vivid dreams, ambien d/c --restoril at 30mg PRN at HS with relief, continue Chronic chest pain Overview: --now resolved --since Hodgkin lymphoma diagnosis per patient Hospital discharge follow-up Overview: --Patient will need to follow up with Dr. Unger after discharge Nfdcokluvti73 Overview: --patient taking atenolol 100mg BID at home, now BP running lower, decreased atenolol dose to 50mg BID with hypotension. --increase to 75mg BID, d/t tachycardia(HRs >110 while afebrile), HR now controlled, continue --monitor closely Electrolyte and fluid disorders not elsewhere yjczbizkyw68 DISPOSITION AND FOLLOW-UP Overview: 32 yo female from [place], [place]. Family involved with care, at bedside. 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 will start PO pain meds today 10/27. tolerating percocet, pain relatively well controlled. Hodgkin's disease with nodular ttnanbojj35 Overview: Oncology history (per Dr. 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 Hodgkin's disease, kvbjfqnpkjm67Vaginal tvbpjozv99/07/2016 Overview: --likely from thrombocytopenia. No menses in prior 8 months. 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 Premature cybweibhz00/07/2016Postmenopausal atrophic acbkwvaai63/07/2016 Tmzzqotbcpf22/07/2016documented as of this encounter (statuses as of 04/01/2023) [facility]08-31-2021 History of Past illness Narrative* ProblemNoted Date Diagnosed DateResolved DateRadiation induced swghaewmkj01/31/202101/ Menorrhagia with regular cycle Overview: Added automatically from request for surgery [id number] History of pulmonary xqfjqzur18Neoplastic (malignant) related dsshnar41Hidradenitis yvvlxfreqwa68Vitamin D hfpnogahfq03HyperCKemiaElevated aldolase levelChronic pain of both kneesPain in joint, multiple sitesMyalgiaFatigue Malaise and cirzcnr43Gastroesophageal reflux disease without zyckjpexner07Laryngitis02/23/2015 12/26/2015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 (poly)utzpnbgegs10/10/2015 12/26/2015Papanicolaou smear of cervix with low grade squamous intraepithelial lesion (LGSIL)Pain in joint, ankle and foot09/27/2014 12/26/2015ASCUS favor pzepbwaor05Visit for gynecologic pvwgjrsezzx21Postmenopausal HRT (hormone replacement therapy) Overview: offered Gait ggqdgcdysag77Weakness of both legs Sprain of ankle, leftPCP (pneumocystis jiroveci pneumonia) Acute respiratory failure with lkvwnfguw34 Overview: Increased O2 requirement overnight (2L to 5L) - bronchoscopy with BAL/TBLB tomorrow 8 AM. - NPO from midnight - hold tonight dose of lovenox. Radiation bkknwghhsik32 Overview: 40 mg prednisone daily Immunodeficiency with predominant T-cell defect, hvcpeczwqid12 Urgency of cdincixxmgv39Urinary iylmapqio15 Arm pain, leftBack pain without ddgzskluo90/19/2014 12/26/2015Abnormal finding on vfjllih34Elevated sed rate Hyperpigmentation of skin Overview: --resolved --bilateral breast tissue and axilla --order mycolog cream --monitor Siuumhud88 Overview: - c diff pending Mucositis (ulcerative) due to antineoplastic ensnaxf80 Overview: --improved --oxy prn --mouth care measures. Ilquzo56 Overview: --improved with protonix Elevated LFTs Overview: --increased AST ALT during chemo, resolved. Excess fluid spwmki62 Overview: --diuresis as needed --continue to monitor volume status CINV (chemotherapy-induced nausea and vomiting) Overview: --Resolved --Ativan PRN (none used) Peripheral lwiasfkxeg76 Overview: --gabapentin 300mg TID with increased symptoms, bedtime dose of gabapentin increased to 600mg with improvement reported, continue DVT syowsprfzld00 Overview: --platelet count decreasing, d/c heparin SQ --encourage ambulation Pleunvtl08 Overview: --ambien PRN at HS, with relief, but with vivid dreams, ambien d/c --restoril at 30mg PRN at HS with relief, continue Chronic chest pain Overview: --now resolved --since Hodgkin lymphoma diagnosis per patient Hospital discharge follow-up Overview: --Patient will need to follow up with Dr. Unger after discharge Ksdzakgvixa88 Overview: --patient taking atenolol 100mg BID at home, now BP running lower, decreased atenolol dose to 50mg BID with hypotension. --increase to 75mg BID, d/t tachycardia(HRs >110 while afebrile), HR now controlled, continue --monitor closely Electrolyte and fluid disorders not elsewhere ufcfnxrnfj29 DISPOSITION AND FOLLOW-UP Overview: 32 yo female from [place], [place]. Family involved with care, at bedside. 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 will start PO pain meds today 10/27. tolerating percocet, pain relatively well controlled. Hodgkin's disease with nodular hjxmwjjeg44 Overview: Oncology history (per Dr. 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 Hodgkin's disease, skxnnpwztuv08Vaginal hznphxiq36/07/2016 Overview: --likely from thrombocytopenia. No menses in prior 8 months. 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 Premature fadrxfsjp30/07/2016Postmenopausal atrophic gspjergkx77/07/2016 Ijwjoysjtsb20/07/2016documented as of this encounter (statuses as of 04/09/2023) [facility]08[facility]-2021 History of Past illness Narrative* ProblemNoted Date Diagnosed DateResolved DateRadiation induced czqjkcqhxy93/31/202101/ Menorrhagia with regular cycle Overview: Added automatically from request for surgery [id number] History of pulmonary gglhkqey19Neoplastic (malignant) related nwqywal71Hidradenitis fnjyqxneoxu99Vitamin D ztjwyhmole39HyperCKemiaElevated aldolase levelChronic pain of both kneesPain in joint, multiple sitesMyalgiaFatigue Malaise and lyxuhgs53Gastroesophageal reflux disease without gdhhgnxwrfl22Laryngitis02/23/2015 12/26/2015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 (poly)qpcdtoameu47/10/2015 12/26/2015Papanicolaou smear of cervix with low grade squamous intraepithelial lesion (LGSIL)Pain in joint, ankle and foot09/27/2014 12/26/2015ASCUS favor csgkxrlkq26Visit for gynecologic nbwzwvlxwkl58Postmenopausal HRT (hormone replacement therapy) Overview: offered Gait sornkyuswni39Weakness of both legs Sprain of ankle, leftPCP (pneumocystis jiroveci pneumonia) Acute respiratory failure with Overview: Increased O2 requirement overnight (2L to 5L) - bronchoscopy with BAL/TBLB tomorrow 8 AM. - NPO from midnight - hold tonight dose of lovenox. Radiation tccwywewqii71 Overview: 40 mg prednisone daily Immunodeficiency with predominant T-cell defect, kmakleisilu10 Urgency of wrgzuoznsia21Urinary Arm pain, leftBack pain without vquuxtenl98/19/2014 12/26/2015Abnormal finding on ojunmqm20Elevated sed rate Hyperpigmentation of skin Overview: --resolved --bilateral breast tissue and axilla --order mycolog cream --monitor Esysdxze98 Overview: - c diff pending Mucositis (ulcerative) due to antineoplastic fjuhdjd37 Overview: --improved --oxy prn --mouth care measures. Vwxzpp69 Overview: --improved with protonix Elevated LFTs Overview: --increased AST ALT during chemo, resolved. Excess fluid Overview: --diuresis as needed --continue to monitor volume status CINV (chemotherapy-induced nausea and vomiting) Overview: --Resolved --Ativan PRN (none used) Peripheral sxqraogwfp07 Overview: --gabapentin 300mg TID with increased symptoms, bedtime dose of gabapentin increased to 600mg with improvement reported, continue DVT rylhblcfkom95 Overview: --platelet count decreasing, d/c heparin SQ --encourage ambulation Icphdgrr29 Overview: --ambien PRN at HS, with relief, but with vivid dreams, ambien d/c --restoril at 30mg PRN at HS with relief, continue Chronic chest pain Overview: --now resolved --since Hodgkin lymphoma diagnosis per patient Hospital discharge follow-up Overview: --Patient will need to follow up with Dr. Unger after discharge Wfigjpngkzt81 Overview: --patient taking atenolol 100mg BID at home, now BP running lower, decreased atenolol dose to 50mg BID with hypotension. --increase to 75mg BID, d/t tachycardia(HRs >110 while afebrile), HR now controlled, continue --monitor closely Electrolyte and fluid disorders not elsewhere ckrodayhjm26 DISPOSITION AND FOLLOW-UP Overview: 32 yo female from [place]. Family involved with care, at bedside. 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 will start PO pain meds today 10/27. tolerating percocet, pain relatively well controlled. Hodgkin's disease with nodular Overview: Oncology history (per Dr. 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 Hodgkin's disease, zmkchujinhv01Vaginal gdnhuehe91/07/2016 Overview: --likely from thrombocytopenia. No menses in prior 8 months. 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 Premature afuctdttb45/07/2016Postmenopausal atrophic /07/2016 Umfbcrzvuxy65/07/2016documented as of this encounter (statuses as of 04/17/2023) [facility]08[facility]21 History of Past illness Narrative* ProblemNoted Date Diagnosed DateResolved DateRadiation induced pssffcxiok88/31/202101/ Menorrhagia with regular cycle Overview: Added automatically from request for surgery [id number] History of pulmonary vwacmpzu25Neoplastic (malignant) related vyltubs87Hidradenitis lyqqnglrvwk89Vitamin D ajicswyuoq80HyperCKemiaElevated aldolase levelChronic pain of both kneesPain in joint, multiple sitesMyalgiaFatigue Malaise and dxqubsz91Gastroesophageal reflux disease without irrccynxjuu61Laryngitis02/23/2015 12/26/2015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 (poly)iltvgcolwg43/10/2015 12/26/2015Papanicolaou smear of cervix with low grade squamous intraepithelial lesion (LGSIL)Pain in joint, ankle and foot09/27/2014 12/26/2015ASCUS favor umxflcnrj51Visit for gynecologic frkobcgxkbn84Postmenopausal HRT (hormone replacement therapy) Overview: offered Gait znkurowexur82Weakness of both legs Sprain of ankle, leftPCP (pneumocystis jiroveci pneumonia) Acute respiratory failure with dbunlbwta12 Overview: Increased O2 requirement overnight (2L to 5L) - bronchoscopy with BAL/TBLB tomorrow 8 AM. - NPO from midnight - hold tonight dose of lovenox. Radiation zsjqbxqhajf11 Overview: 40 mg prednisone daily Immunodeficiency with predominant T-cell defect, bjtauvrdfdo99 Urgency of srisnorzgiv48Urinary prwylerus16 Arm pain, leftBack pain without ymyuekxwm11/19/2014 12/26/2015Abnormal finding on xyundhi82Elevated sed rate Hyperpigmentation of skin Overview: --resolved --bilateral breast tissue and axilla --order mycolog cream --monitor Ybyozucy76 Overview: - c diff pending Mucositis (ulcerative) due to antineoplastic losykms77 Overview: --improved --oxy prn --mouth care measures. Nmjyqq88 Overview: --improved with protonix Elevated LFTs Overview: --increased AST ALT during chemo, resolved. Excess fluid dlpyyy69 Overview: --diuresis as needed --continue to monitor volume status CINV (chemotherapy-induced nausea and vomiting) Overview: --Resolved --Ativan PRN (none used) Peripheral etosuppnsu51 Overview: --gabapentin 300mg TID with increased symptoms, bedtime dose of gabapentin increased to 600mg with improvement reported, continue DVT ihdcnbmsssm52 Overview: --platelet count decreasing, d/c heparin SQ --encourage ambulation Uigunnjz99 Overview: --ambien PRN at HS, with relief, but with vivid dreams, ambien d/c --restoril at 30mg PRN at HS with relief, continue Chronic chest pain Overview: --now resolved --since Hodgkin lymphoma diagnosis per patient Hospital discharge follow-up Overview: --Patient will need to follow up with Dr. Unger after discharge Hhjyvvepwit40 Overview: --patient taking atenolol 100mg BID at home, now BP running lower, decreased atenolol dose to 50mg BID with hypotension. --increase to 75mg BID, d/t tachycardia(HRs >110 while afebrile), HR now controlled, continue --monitor closely Electrolyte and fluid disorders not elsewhere lkmyiqyndj80 DISPOSITION AND FOLLOW-UP Overview: 32 yo female from [place], [place]. Family involved with care, at bedside. 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 will start PO pain meds today 10/27. tolerating percocet, pain relatively well controlled. Hodgkin's disease with nodular hchghqzar28 Overview: Oncology history (per Dr. 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 Hodgkin's disease, mienbjxqwav81Vaginal kpjaplkj12/07/2016 Overview: --likely from thrombocytopenia. No menses in prior 8 months. 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 Premature zuovdnwye21/07/2016Postmenopausal atrophic iraqginag39/07/2016 Bntdcaktdyz25/07/2016documented as of this encounter (statuses as of 04/19/2023) [facility]08-[facility]2021 History of Past illness Narrative* ProblemNoted Date Diagnosed DateResolved DateRadiation induced hlripszqqo50/31/202101/ Menorrhagia with regular cycle Overview: Added automatically from request for surgery [id number] History of pulmonary mcfikwlz96Neoplastic (malignant) related sbndfvg89Hidradenitis zqguoyhhnzh51Vitamin D ikintgfwsm61HyperCKemiaElevated aldolase levelChronic pain of both kneesPain in joint, multiple sitesMyalgiaFatigue Malaise and kblpexk38Gastroesophageal reflux disease without fehfzxkpmwc51Laryngitis02/23/2015 12/26/2015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 (poly)hixeilxdyh50/10/2015 12/26/2015Papanicolaou smear of cervix with low grade squamous intraepithelial lesion (LGSIL)Pain in joint, ankle and foot09/27/2014 12/26/2015ASCUS favor xoirhlptt46Visit for gynecologic mjduwnnvmxz88Postmenopausal HRT (hormone replacement therapy) Overview: offered Gait egldmyiyqzu91Weakness of both legs Sprain of ankle, leftPCP (pneumocystis jiroveci pneumonia) Acute respiratory failure with iodjnivpq40 Overview: Increased O2 requirement overnight (2L to 5L) - bronchoscopy with BAL/TBLB tomorrow 8 AM. - NPO from midnight - hold tonight dose of lovenox. Radiation wqckbfideei67 Overview: 40 mg prednisone daily Immunodeficiency with predominant T-cell defect, ahllerkwqui76 Urgency of barmotxvuhk01Urinary zrakqswhg58 Arm pain, leftBack pain without ssmziawlb23/19/2014 12/26/2015Abnormal finding on nwjakop88Elevated sed rate Hyperpigmentation of skin Overview: --resolved --bilateral breast tissue and axilla --order mycolog cream --monitor Yczylmcr90 Overview: - c diff pending Mucositis (ulcerative) due to antineoplastic ovtcqyi35 Overview: --improved --oxy prn --mouth care measures. Gtcftv78 Overview: --improved with protonix Elevated LFTs Overview: --increased AST ALT during chemo, resolved. Excess fluid wbyrpa82 Overview: --diuresis as needed --continue to monitor volume status CINV (chemotherapy-induced nausea and vomiting) Overview: --Resolved --Ativan PRN (none used) Peripheral muffhomazv04 Overview: --gabapentin 300mg TID with increased symptoms, bedtime dose of gabapentin increased to 600mg with improvement reported, continue DVT Overview: --platelet count decreasing, d/c heparin SQ --encourage ambulation Rdqnlvtf09 Overview: --ambien PRN at HS, with relief, but with vivid dreams, ambien d/c --restoril at 30mg PRN at HS with relief, continue Chronic chest pain Overview: --now resolved --since Hodgkin lymphoma diagnosis per patient Hospital discharge follow-up Overview: --Patient will need to follow up with Dr. Unger after discharge Idruursixlb31 Overview: --patient taking atenolol 100mg BID at home, now BP running lower, decreased atenolol dose to 50mg BID with hypotension. --increase to 75mg BID, d/t tachycardia(HRs >110 while afebrile), HR now controlled, continue --monitor closely Electrolyte and fluid disorders not elsewhere futytdyyvb09 DISPOSITION AND FOLLOW-UP Overview: 32 yo female from [place], [place]. Family involved with care, at bedside. 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 will start PO pain meds today 10/27. tolerating percocet, pain relatively well controlled. Hodgkin's disease with nodular xmotpvbjw42 Overview: Oncology history (per Dr. 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 Hodgkin's disease, irtqebustlr74Vaginal dmdwmiaj67/07/2016 Overview: --likely from thrombocytopenia. No menses in prior 8 months. 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 Premature ppnbulwvs17/07/2016Postmenopausal atrophic nrwlcvapq07/07/2016 Etthyeelran96/07/2016documented as of this encounter (statuses as of 04/20/2023) [facility]08-31-2021 History of Past illness Narrative* ProblemNoted Date Diagnosed DateResolved DateRadiation induced xoqetsmeoj12/31/202101/ Menorrhagia with regular cycle Overview: Added automatically from request for surgery [id number] History of pulmonary iewejtoz09Neoplastic (malignant) related ygvjlyr44Hidradenitis yqyhqkvctxa08Vitamin D fzfyrvoxlo02HyperCKemiaElevated aldolase levelChronic pain of both kneesPain in joint, multiple sitesMyalgiaFatigue Malaise and ukvdjpc94Gastroesophageal reflux disease without mveqmbtgxpo62Laryngitis02/23/2015 12/26/2015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 (poly)cqjfjdxkey30/10/2015 12/26/2015Papanicolaou smear of cervix with low grade squamous intraepithelial lesion (LGSIL)Pain in joint, ankle and foot09/27/2014 12/26/2015ASCUS favor nnowbpijp93Visit for gynecologic ilcjfemqmqj03Postmenopausal HRT (hormone replacement therapy) Overview: offered Gait edbnznoqwol87Weakness of both legs Sprain of ankle, leftPCP (pneumocystis jiroveci pneumonia) Acute respiratory failure with jynnusqpz36 Overview: Increased O2 requirement overnight (2L to 5L) - bronchoscopy with BAL/TBLB tomorrow 8 AM. - NPO from midnight - hold tonight dose of lovenox. Radiation veigcledbwf15 Overview: 40 mg prednisone daily Immunodeficiency with predominant T-cell defect, qzgmvmkyjqb41 Urgency of ujxtzkoakau95Urinary zuupbpsmp38 Arm pain, leftBack pain without mrisrwwfd96/19/2014 12/26/2015Abnormal finding on awwvguh78Elevated sed rate Hyperpigmentation of skin Overview: --resolved --bilateral breast tissue and axilla --order mycolog cream --monitor Smdmbgai61 Overview: - c diff pending Mucositis (ulcerative) due to antineoplastic zuubary17 Overview: --improved --oxy prn --mouth care measures. Shisbz50 Overview: --improved with protonix Elevated LFTs Overview: --increased AST ALT during chemo, resolved. Excess fluid bpyugq00 Overview: --diuresis as needed --continue to monitor volume status CINV (chemotherapy-induced nausea and vomiting) Overview: --Resolved --Ativan PRN (none used) Peripheral pplpcmtuzb53 Overview: --gabapentin 300mg TID with increased symptoms, bedtime dose of gabapentin increased to 600mg with improvement reported, continue DVT umexmncblmt64 Overview: --platelet count decreasing, d/c heparin SQ --encourage ambulation Vdvhfxha80 Overview: --ambien PRN at HS, with relief, but with vivid dreams, ambien d/c --restoril at 30mg PRN at HS with relief, continue Chronic chest pain Overview: --now resolved --since Hodgkin lymphoma diagnosis per patient Hospital discharge follow-up Overview: --Patient will need to follow up with Dr. Unger after discharge Kohpdcbnpgo34 Overview: --patient taking atenolol 100mg BID at home, now BP running lower, decreased atenolol dose to 50mg BID with hypotension. --increase to 75mg BID, d/t tachycardia(HRs >110 while afebrile), HR now controlled, continue --monitor closely Electrolyte and fluid disorders not elsewhere txnuhypbod69 DISPOSITION AND FOLLOW-UP Overview: 32 yo female from [place], [place]. Family involved with care, at bedside. 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 will start PO pain meds today 10/27. tolerating percocet, pain relatively well controlled. Hodgkin's disease with nodular yucdlwmfr32 Overview: Oncology history (per Dr. 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 Hodgkin's disease, ztbrkehbqct26Vaginal /07/2016 Overview: --likely from thrombocytopenia. No menses in prior 8 months. 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 Premature nejzsxekl20/07/2016Postmenopausal atrophic zdullzrqd57/07/2016 Fmrtotdwfhw13/07/2016documented as of this encounter (statuses as of 05/07/2023) [facility]08-31-2021 History of Past illness Narrative* ProblemNoted Date Diagnosed DateResolved DateRadiation induced wbylxbqdtq01/31/202101/ Menorrhagia with regular cycle Overview: Added automatically from request for surgery [id number] History of pulmonary ufojwaao03Neoplastic (malignant) related zigcpcz33Hidradenitis zugzazbyxfq17Vitamin D gztjgezjuz52HyperCKemiaElevated aldolase levelChronic pain of both kneesPain in joint, multiple sitesMyalgiaFatigue Malaise and eyouqvx34Gastroesophageal reflux disease without tqmiaomlpui05Laryngitis02/23/2015 12/26/2015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 (poly)iyjqxsklau64/10/2015 12/26/2015Papanicolaou smear of cervix with low grade squamous intraepithelial lesion (LGSIL)Pain in joint, ankle and foot09/27/2014 12/26/2015ASCUS favor igfigfrdw37Visit for gynecologic vkyacbkyefp77Postmenopausal HRT (hormone replacement therapy) Overview: offered Gait doouovgvnjy71Weakness of both legs Sprain of ankle, leftPCP (pneumocystis jiroveci pneumonia) Acute respiratory failure with bdpiseihi41 Overview: Increased O2 requirement overnight (2L to 5L) - bronchoscopy with BAL/TBLB tomorrow 8 AM. - NPO from midnight - hold tonight dose of lovenox. Radiation naviiedlecv40 Overview: 40 mg prednisone daily Immunodeficiency with predominant T-cell defect, ttgefrltvge88 Urgency of pgkdzqwhlny36Urinary ewhxhrowt33 Arm pain, leftBack pain without yrzhdcekj10/19/2014 12/26/2015Abnormal finding on ypfmjgv24Elevated sed rate Hyperpigmentation of skin Overview: --resolved --bilateral breast tissue and axilla --order mycolog cream --monitor Ufwqozbl37 Overview: - c diff pending Mucositis (ulcerative) due to antineoplastic nadhblp63 Overview: --improved --oxy prn --mouth care measures. Aznjxx30 Overview: --improved with protonix Elevated LFTs Overview: --increased AST ALT during chemo, resolved. Excess fluid pohepn44 Overview: --diuresis as needed --continue to monitor volume status CINV (chemotherapy-induced nausea and vomiting) Overview: --Resolved --Ativan PRN (none used) Peripheral zmgojzkiec32 Overview: --gabapentin 300mg TID with increased symptoms, bedtime dose of gabapentin increased to 600mg with improvement reported, continue DVT oojqfkgauvh70 Overview: --platelet count decreasing, d/c heparin SQ --encourage ambulation Qdzqcvbg05 Overview: --ambien PRN at HS, with relief, but with vivid dreams, ambien d/c --restoril at 30mg PRN at HS with relief, continue Chronic chest pain Overview: --now resolved --since Hodgkin lymphoma diagnosis per patient Hospital discharge follow-up Overview: --Patient will need to follow up with Dr. Unger after discharge Vzrvlpnlnux92 Overview: --patient taking atenolol 100mg BID at home, now BP running lower, decreased atenolol dose to 50mg BID with hypotension. --increase to 75mg BID, d/t tachycardia(HRs >110 while afebrile), HR now controlled, continue --monitor closely Electrolyte and fluid disorders not elsewhere homiebhcbs76 DISPOSITION AND FOLLOW-UP Overview: 32 yo female from [place], [place]. Family involved with care, at bedside. 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 will start PO pain meds today 10/27. tolerating percocet, pain relatively well controlled. Hodgkin's disease with nodular jmpoudaqq40 Overview: Oncology history (per Dr. 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 Hodgkin's disease, euhgtvajlkw45Vaginal ojjzmgqe37/07/2016 Overview: --likely from thrombocytopenia. No menses in prior 8 months. 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 Premature zliywdwgj02/07/2016Postmenopausal atrophic knxgcupuj03/07/2016 Pflzknukzkm04/07/2016documented as of this encounter (statuses as of 05/10/2023) [facility]08-[facility]-2021 History of Past illness Narrative* ProblemNoted Date Diagnosed DateResolved DateRadiation induced /31/202101/ Menorrhagia with regular cycle Overview: Added automatically from request for surgery [id number] History of pulmonary klsyubwq59Neoplastic (malignant) related sfoftcq17Hidradenitis fqwwetvicyb45Vitamin D rmzmlwvwad49HyperCKemiaElevated aldolase levelChronic pain of both kneesPain in joint, multiple sitesMyalgiaFatigue Malaise and eiovvoc65Gastroesophageal reflux disease without cqojeluwgby58Laryngitis02/23/2015 12/26/2015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 (poly)jtedssgysl49/10/2015 12/26/2015Papanicolaou smear of cervix with low grade squamous intraepithelial lesion (LGSIL)Pain in joint, ankle and foot09/27/2014 12/26/2015ASCUS favor aabbqnjrl75Visit for gynecologic xtzfuqkfmxp78Postmenopausal HRT (hormone replacement therapy) Overview: offered Gait rmzlvgmjdkg42Weakness of both legs Sprain of ankle, leftPCP (pneumocystis jiroveci pneumonia) Acute respiratory failure with xhmwkxgok25 Overview: Increased O2 requirement overnight (2L to 5L) - bronchoscopy with BAL/TBLB tomorrow 8 AM. - NPO from midnight - hold tonight dose of lovenox. Radiation zhksifzuqma00 Overview: 40 mg prednisone daily Immunodeficiency with predominant T-cell defect, fdqgrudlpva09 Urgency of thfizqjhuuw75Urinary ezhametdx20 Arm pain, leftBack pain without /19/2014 12/26/2015Abnormal finding on csmtmqy42Elevated sed rate Hyperpigmentation of skin Overview: --resolved --bilateral breast tissue and axilla --order mycolog cream --monitor Kwypptbp97 Overview: - c diff pending Mucositis (ulcerative) due to antineoplastic wuokmso00 Overview: --improved --oxy prn --mouth care measures. Xommey73 Overview: --improved with protonix Elevated LFTs Overview: --increased AST ALT during chemo, resolved. Excess fluid Overview: --diuresis as needed --continue to monitor volume status CINV (chemotherapy-induced nausea and vomiting) Overview: --Resolved --Ativan PRN (none used) Peripheral jytloiurdb86 Overview: --gabapentin 300mg TID with increased symptoms, bedtime dose of gabapentin increased to 600mg with improvement reported, continue DVT Overview: --platelet count decreasing, d/c heparin SQ --encourage ambulation Coapmdiw75 Overview: --ambien PRN at HS, with relief, but with vivid dreams, ambien d/c --restoril at 30mg PRN at HS with relief, continue Chronic chest pain Overview: --now resolved --since Hodgkin lymphoma diagnosis per patient Hospital discharge follow-up Overview: --Patient will need to follow up with Dr. Unger after discharge Amuilrvvxtd59 Overview: --patient taking atenolol 100mg BID at home, now BP running lower, decreased atenolol dose to 50mg BID with hypotension. --increase to 75mg BID, d/t tachycardia(HRs >110 while afebrile), HR now controlled, continue --monitor closely Electrolyte and fluid disorders not elsewhere mrioajqjzc48 DISPOSITION AND FOLLOW-UP Overview: 32 yo female from [place], [place]. Family involved with care, at bedside. 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 will start PO pain meds today 10/27. tolerating percocet, pain relatively well controlled. Hodgkin's disease with nodular zlynybmdd16 Overview: Oncology history (per Dr. 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 Hodgkin's disease, foyajspptkp17Vaginal lkcwoxqt89/07/2016 Overview: --likely from thrombocytopenia. No menses in prior 8 months. 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 Premature /07/2016Postmenopausal atrophic admleyfdk07/07/2016 Wzctxpebmdg13/07/2016documented as of this encounter (statuses as of 05/13/2023) [facility]08[facility] History of Past illness Narrative* ProblemNoted Date Diagnosed DateResolved DateRadiation induced cebgmnpcdq57/31/202101/ Menorrhagia with regular cycle Overview: Added automatically from request for surgery [id number] History of pulmonary iqjkdvvu19Neoplastic (malignant) related zburrxl47Hidradenitis shxzlboiizw02Vitamin D owdcbregkv52HyperCKemiaElevated aldolase levelChronic pain of both kneesPain in joint, multiple sitesMyalgiaFatigue Malaise and lfkzuej83Gastroesophageal reflux disease without hfemcjwpxfj09Laryngitis02/23/2015 12/26/2015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 (poly)mphjmnacog85/10/2015 12/26/2015Papanicolaou smear of cervix with low grade squamous intraepithelial lesion (LGSIL)Pain in joint, ankle and foot09/27/2014 12/26/2015ASCUS favor mdotaftjh68Visit for gynecologic fgnieedbfdg00Postmenopausal HRT (hormone replacement therapy) Overview: offered Gait dgbyymubspv58Weakness of both legs Sprain of ankle, leftPCP (pneumocystis jiroveci pneumonia) Acute respiratory failure with aweoncxha05 Overview: Increased O2 requirement overnight (2L to 5L) - bronchoscopy with BAL/TBLB tomorrow 8 AM. - NPO from midnight - hold tonight dose of lovenox. Radiation imipytposbc34 Overview: 40 mg prednisone daily Immunodeficiency with predominant T-cell defect, egdwfnbtugj83 Urgency of himyzgbgptj00Urinary pdkkxdalm10 Arm pain, leftBack pain without dojchysqc96/19/2014 12/26/2015Abnormal finding on sregclg91Elevated sed rate Hyperpigmentation of skin Overview: --resolved --bilateral breast tissue and axilla --order mycolog cream --monitor Mpjbjsxf70 Overview: - c diff pending Mucositis (ulcerative) due to antineoplastic dyiryzx96 Overview: --improved --oxy prn --mouth care measures. Lxswbs92 Overview: --improved with protonix Elevated LFTs Overview: --increased AST ALT during chemo, resolved. Excess fluid xiahxe38 Overview: --diuresis as needed --continue to monitor volume status CINV (chemotherapy-induced nausea and vomiting) Overview: --Resolved --Ativan PRN (none used) Peripheral qwhswsvycz48 Overview: --gabapentin 300mg TID with increased symptoms, bedtime dose of gabapentin increased to 600mg with improvement reported, continue DVT djjhxzudeno67 Overview: --platelet count decreasing, d/c heparin SQ --encourage ambulation Kxcdftwn85 Overview: --ambien PRN at HS, with relief, but with vivid dreams, ambien d/c --restoril at 30mg PRN at HS with relief, continue Chronic chest pain Overview: --now resolved --since Hodgkin lymphoma diagnosis per patient Hospital discharge follow-up Overview: --Patient will need to follow up with Dr. Unger after discharge Lfojzgetfxv59 Overview: --patient taking atenolol 100mg BID at home, now BP running lower, decreased atenolol dose to 50mg BID with hypotension. --increase to 75mg BID, d/t tachycardia(HRs >110 while afebrile), HR now controlled, continue --monitor closely Electrolyte and fluid disorders not elsewhere huzqgxkyle49 DISPOSITION AND FOLLOW-UP Overview: 32 yo female from [place]. Family involved with care, at bedside. 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 will start PO pain meds today 10/27. tolerating percocet, pain relatively well controlled. Hodgkin's disease with nodular Overview: Oncology history (per Dr. 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 Hodgkin's disease, awourhmtzgq43Vaginal /07/2016 Overview: --likely from thrombocytopenia. No menses in prior 8 months. 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 Premature iawsdwbgh75/07/2016Postmenopausal atrophic phctoofzk61/07/2016 Xtwtfcopnsz02/07/2016documented as of this encounter (statuses as of 05/15/2023) [facility] History of Past illness Narrative* ProblemNoted Date Diagnosed DateResolved DateRadiation induced tkunqrullf81/31/202101/ Menorrhagia with regular cycle Overview: Added automatically from request for surgery [id number] History of pulmonary kszfmkrc46Neoplastic (malignant) related tzpbgwi20Hidradenitis zbnmzjqaywi56Vitamin D fuiqwjvnzb73HyperCKemiaElevated aldolase levelChronic pain of both kneesPain in joint, multiple sitesMyalgiaFatigue Malaise and pnafxmo30Gastroesophageal reflux disease without lmozttwmbvq43Laryngitis02/23/2015 12/26/2015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 (poly)jnepijbskb17/10/2015 12/26/2015Papanicolaou smear of cervix with low grade squamous intraepithelial lesion (LGSIL)Pain in joint, ankle and foot09/27/2014 12/26/2015ASCUS favor agtbdvhlo28Visit for gynecologic rjhlebwegts82Postmenopausal HRT (hormone replacement therapy) Overview: offered Gait yojqavncbbe60Weakness of both legs Sprain of ankle, leftPCP (pneumocystis jiroveci pneumonia) Acute respiratory failure with bluyrzoih92 Overview: Increased O2 requirement overnight (2L to 5L) - bronchoscopy with BAL/TBLB tomorrow 8 AM. - NPO from midnight - hold tonight dose of lovenox. Radiation rhqpbcgsydh47 Overview: 40 mg prednisone daily Immunodeficiency with predominant T-cell defect, mgmglyzvssx24 Urgency of pueyxjlplnk40Urinary fmyhifaug75 Arm pain, leftBack pain without kekwjfoui79/19/2014 12/26/2015Abnormal finding on jtcgjke85Elevated sed rate Hyperpigmentation of skin Overview: --resolved --bilateral breast tissue and axilla --order mycolog cream --monitor Ttkdybug65 Overview: - c diff pending Mucositis (ulcerative) due to antineoplastic ikyytra37 Overview: --improved --oxy prn --mouth care measures. Diorfi23 Overview: --improved with protonix Elevated LFTs Overview: --increased AST ALT during chemo, resolved. Excess fluid zjtkol15 Overview: --diuresis as needed --continue to monitor volume status CINV (chemotherapy-induced nausea and vomiting) Overview: --Resolved --Ativan PRN (none used) Peripheral mrtvftweax57 Overview: --gabapentin 300mg TID with increased symptoms, bedtime dose of gabapentin increased to 600mg with improvement reported, continue DVT rviehmmntzb05 Overview: --platelet count decreasing, d/c heparin SQ --encourage ambulation Jtopjfsm97 Overview: --ambien PRN at HS, with relief, but with vivid dreams, ambien d/c --restoril at 30mg PRN at HS with relief, continue Chronic chest pain Overview: --now resolved --since Hodgkin lymphoma diagnosis per patient Hospital discharge follow-up Overview: --Patient will need to follow up with Dr. Unger after discharge Ncyeziaxxnh02 Overview: --patient taking atenolol 100mg BID at home, now BP running lower, decreased atenolol dose to 50mg BID with hypotension. --increase to 75mg BID, d/t tachycardia(HRs >110 while afebrile), HR now controlled, continue --monitor closely Electrolyte and fluid disorders not elsewhere zreucssrkr15 DISPOSITION AND FOLLOW-UP Overview: 32 yo female from [place], [place]. Family involved with care, at bedside. 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 will start PO pain meds today 10/27. tolerating percocet, pain relatively well controlled. Hodgkin's disease with nodular enwiyysqx37 Overview: Oncology history (per Dr. 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 Hodgkin's disease, fzpswqlgptt65Vaginal qxkjvjut12/07/2016 Overview: --likely from thrombocytopenia. No menses in prior 8 months. 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 Premature /07/2016Postmenopausal atrophic bojeytrlm05/07/2016 Mefjewqtpqh62/07/2016documented as of this encounter (statuses as of 05/21/2023) [facility]08[facility]31-[facility]21 History of Past illness Narrative* ProblemNoted Date Diagnosed DateResolved DateRadiation induced jjhxykyliu15/31/202101/ Menorrhagia with regular cycle Overview: Added automatically from request for surgery [id number] History of pulmonary vasnuqug75Neoplastic (malignant) related dmdlrmz32Hidradenitis vnkuqzzoafz19Vitamin D nsswztontq99HyperCKemiaElevated aldolase levelChronic pain of both kneesPain in joint, multiple sitesMyalgiaFatigue Malaise and ugeaenn66Gastroesophageal reflux disease without enfgxdcdkeu14Laryngitis02/23/2015 12/26/2015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 (poly)anfyznniuh09/10/2015 12/26/2015Papanicolaou smear of cervix with low grade squamous intraepithelial lesion (LGSIL)Pain in joint, ankle and foot09/27/2014 12/26/2015ASCUS favor sdvzpnbuo91Visit for gynecologic pgndnezvtmm13Postmenopausal HRT (hormone replacement therapy) Overview: offered Gait npyxshiorwh86Weakness of both legs07/22/ Sprain of ankle, leftPCP (pneumocystis jiroveci pneumonia) Acute respiratory failure with yweidjmtr87 Overview: Increased O2 requirement overnight (2L to 5L) - bronchoscopy with BAL/TBLB tomorrow 8 AM. - NPO from midnight - hold tonight dose of lovenox. Radiation iuazldrnark61 Overview: 40 mg prednisone daily Immunodeficiency with predominant T-cell defect, zkcbmmnknyh93 Urgency of vjiyfqjtwyj06Urinary izbtjvera60 Arm pain, leftBack pain without znudurirw84/19/2014 12/26/2015Abnormal finding on xcccmlk48Elevated sed rate Hyperpigmentation of skin Overview: --resolved --bilateral breast tissue and axilla --order mycolog cream --monitor Cbvtoavk77 Overview: - c diff pending Mucositis (ulcerative) due to antineoplastic uiribdt11 Overview: --improved --oxy prn --mouth care measures. Zirhit45 Overview: --improved with protonix Elevated LFTs Overview: --increased AST ALT during chemo, resolved. Excess fluid sztzae90 Overview: --diuresis as needed --continue to monitor volume status CINV (chemotherapy-induced nausea and vomiting) Overview: --Resolved --Ativan PRN (none used) Peripheral uxqpiredah90 Overview: --gabapentin 300mg TID with increased symptoms, bedtime dose of gabapentin increased to 600mg with improvement reported, continue DVT mobtparpxju47 Overview: --platelet count decreasing, d/c heparin SQ --encourage ambulation Wxkspumm06 Overview: --ambien PRN at HS, with relief, but with vivid dreams, ambien d/c --restoril at 30mg PRN at HS with relief, continue Chronic chest pain Overview: --now resolved --since Hodgkin lymphoma diagnosis per patient Hospital discharge follow-up Overview: --Patient will need to follow up with Dr. Unger after discharge Qlheghwrlda04 Overview: --patient taking atenolol 100mg BID at home, now BP running lower, decreased atenolol dose to 50mg BID with hypotension. --increase to 75mg BID, d/t tachycardia(HRs >110 while afebrile), HR now controlled, continue --monitor closely Electrolyte and fluid disorders not elsewhere DISPOSITION AND FOLLOW-UP Overview: 32 yo female from [place], [place]. Family involved with care, at bedside. 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 will start PO pain meds today 10/27. tolerating percocet, pain relatively well controlled. Hodgkin's disease with nodular zshnfjfhy11 Overview: Oncology history (per Dr. 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 Hodgkin's disease, uutfgactclv59/18/201203/Vaginal ajrvamcc20/07/2016 Overview: --likely from thrombocytopenia. No menses in prior 8 months. 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 Premature kajcyznvc30/07/2016Postmenopausal atrophic hrospzcuh09/07/2016 Gstbbbnpvsa20/07/2016documented as of this encounter (statuses as of 05/22/2023) [facility]08-31-2021 History of Past illness Narrative* ProblemNoted Date Diagnosed DateResolved DateRadiation induced qqkgovmprx06/31/202101/ Menorrhagia with regular cycle Overview: Added automatically from request for surgery [id number] History of pulmonary orhezhfg82Neoplastic (malignant) related xracryk34Hidradenitis nydzrkmlbxz13Vitamin D gxgjlymsre70HyperCKemiaElevated aldolase levelChronic pain of both kneesPain in joint, multiple sitesMyalgiaFatigue Malaise and /04/Gastroesophageal reflux disease without aaenzkgldmx02Laryngitis02/23/2015 12/26/2015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 (poly)ooegiftdka30/10/2015 12/26/2015Papanicolaou smear of cervix with low grade squamous intraepithelial lesion (LGSIL)Pain in joint, ankle and foot09/27/2014 12/26/2015ASCUS favor rjrmxdnpz51Visit for gynecologic zhharydatdg51Postmenopausal HRT (hormone replacement therapy) Overview: offered Gait hcqrvqemzmg05Weakness of both legs Sprain of ankle, leftPCP (pneumocystis jiroveci pneumonia) Acute respiratory failure with jxeiofvxd01 Overview: Increased O2 requirement overnight (2L to 5L) - bronchoscopy with BAL/TBLB tomorrow 8 AM. - NPO from midnight - hold tonight dose of lovenox. Radiation mzwgayokihl12 Overview: 40 mg prednisone daily Immunodeficiency with predominant T-cell defect, vdcbqlasrnl76 Urgency of uvctegssbti95Urinary spksgvoyk56 Arm pain, leftBack pain without /19/2014 12/26/2015Abnormal finding on bjacnfk75Elevated sed rate Hyperpigmentation of skin Overview: --resolved --bilateral breast tissue and axilla --order mycolog cream --monitor Mcggjede65 Overview: - c diff pending Mucositis (ulcerative) due to antineoplastic Overview: --improved --oxy prn --mouth care measures. Vzqdbe22 Overview: --improved with protonix Elevated LFTs Overview: --increased AST ALT during chemo, resolved. Excess fluid sooeey54 Overview: --diuresis as needed --continue to monitor volume status CINV (chemotherapy-induced nausea and vomiting) Overview: --Resolved --Ativan PRN (none used) Peripheral ussogllflr94 Overview: --gabapentin 300mg TID with increased symptoms, bedtime dose of gabapentin increased to 600mg with improvement reported, continue DVT bsuueavenoc31 Overview: --platelet count decreasing, d/c heparin SQ --encourage ambulation Skqqtcpw07 Overview: --ambien PRN at HS, with relief, but with vivid dreams, ambien d/c --restoril at 30mg PRN at HS with relief, continue Chronic chest pain Overview: --now resolved --since Hodgkin lymphoma diagnosis per patient Hospital discharge follow-up Overview: --Patient will need to follow up with Dr. Unger after discharge Suibcbhxpln82 Overview: --patient taking atenolol 100mg BID at home, now BP running lower, decreased atenolol dose to 50mg BID with hypotension. --increase to 75mg BID, d/t tachycardia(HRs >110 while afebrile), HR now controlled, continue --monitor closely Electrolyte and fluid disorders not elsewhere amgrvehqiy84 DISPOSITION AND FOLLOW-UP Overview: 32 yo female from [place], [place]. Family involved with care, at bedside. 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 will start PO pain meds today 10/27. tolerating percocet, pain relatively well controlled. Hodgkin's disease with nodular Overview: Oncology history (per Dr. 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 Hodgkin's disease, vcyckvnpxay86Vaginal uncfsrnv55/07/2016 Overview: --likely from thrombocytopenia. No menses in prior 8 months. 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 Premature /07/2016Postmenopausal atrophic /07/2016 Ditxfhwotde59/07/2016documented as of this encounter (statuses as of 05/30/2023) [facility]08-31-2021 History of Past illness Narrative* ProblemNoted Date Diagnosed DateResolved DateRadiation induced gxecndqepr36/31/202101/ Menorrhagia with regular cycle Overview: Added automatically from request for surgery [id number] History of pulmonary iuwbnqiv32Neoplastic (malignant) related duvqqzh77Hidradenitis vtvpwbdubbb83Vitamin D kuwxqgagaf65HyperCKemiaElevated aldolase level03/18/414600/07/2016Chronic pain of both kneesPain in joint, multiple sitesMyalgiaFatigue Malaise and dnbpbjf05Gastroesophageal reflux disease without vtquexkonoc11Laryngitis02/23/2015 12/26/2015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 (poly)rzshjseujm38/10/2015 12/26/2015Papanicolaou smear of cervix with low grade squamous intraepithelial lesion (LGSIL)Pain in joint, ankle and foot09/27/2014 12/26/2015ASCUS favor iqvxcenro18Visit for gynecologic btguoiohogi48Postmenopausal HRT (hormone replacement therapy) Overview: offered Gait ccziiflgvox99Weakness of both legs Sprain of ankle, leftPCP (pneumocystis jiroveci pneumonia) Acute respiratory failure with Overview: Increased O2 requirement overnight (2L to 5L) - bronchoscopy with BAL/TBLB tomorrow 8 AM. - NPO from midnight - hold tonight dose of lovenox. Radiation ocjmttvyfvv04 Overview: 40 mg prednisone daily Immunodeficiency with predominant T-cell defect, gcmrcicetgx05 Urgency of wehsvvzwdli46Urinary rfeglmmml88 Arm pain, leftBack pain without /19/2014 12/26/2015Abnormal finding on dmpkrkk75Elevated sed rate Hyperpigmentation of skin Overview: --resolved --bilateral breast tissue and axilla --order mycolog cream --monitor Zratumih98 Overview: - c diff pending Mucositis (ulcerative) due to antineoplastic Overview: --improved --oxy prn --mouth care measures. Sjizcn86 Overview: --improved with protonix Elevated LFTs Overview: --increased AST ALT during chemo, resolved. Excess fluid ixixnb46 Overview: --diuresis as needed --continue to monitor volume status CINV (chemotherapy-induced nausea and vomiting) Overview: --Resolved --Ativan PRN (none used) Peripheral cpnpxhlhwy29 Overview: --gabapentin 300mg TID with increased symptoms, bedtime dose of gabapentin increased to 600mg with improvement reported, continue DVT hxaozjvwudb40 Overview: --platelet count decreasing, d/c heparin SQ --encourage ambulation Aymftwwh93 Overview: --ambien PRN at HS, with relief, but with vivid dreams, ambien d/c --restoril at 30mg PRN at HS with relief, continue Chronic chest pain Overview: --now resolved --since Hodgkin lymphoma diagnosis per patient Hospital discharge follow-up Overview: --Patient will need to follow up with Dr. Unger after discharge Tdmucxflbue45 Overview: --patient taking atenolol 100mg BID at home, now BP running lower, decreased atenolol dose to 50mg BID with hypotension. --increase to 75mg BID, d/t tachycardia(HRs >110 while afebrile), HR now controlled, continue --monitor closely Electrolyte and fluid disorders not elsewhere cppbkjvhur27 DISPOSITION AND FOLLOW-UP Overview: 32 yo female from [place], [place]. Family involved with care, at bedside. 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 will start PO pain meds today 10/27. tolerating percocet, pain relatively well controlled. Hodgkin's disease with nodular tirltdloy30 Overview: Oncology history (per Dr. 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 Hodgkin's disease, nyerkxfukzu67Vaginal okgeounn03/07/2016 Overview: --likely from thrombocytopenia. No menses in prior 8 months. 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 Premature wuswsamrc21/07/2016Postmenopausal atrophic zqehqdhth33/07/2016 Ztjtcwzxdpd41/07/2016documented as of this encounter (statuses as of 05/31/2023) [facility]08-[facility]-2021 History of Past illness Narrative* ProblemNoted Date Diagnosed DateResolved DateRadiation induced toxsroxkkx56/31/202101/ Menorrhagia with regular cycle Overview: Added automatically from request for surgery [id number] History of pulmonary aixmwwja61Neoplastic (malignant) related usunmzx12Hidradenitis xlvjopzgixr50Vitamin D frluibjuff02HyperCKemiaElevated aldolase levelChronic pain of both kneesPain in joint, multiple sitesMyalgiaFatigue Malaise and fqwqlaa71Gastroesophageal reflux disease without yayobofpxze98Laryngitis02/23/2015 12/26/2015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 (poly)jcvvunbbda62/10/2015 12/26/2015Papanicolaou smear of cervix with low grade squamous intraepithelial lesion (LGSIL)Pain in joint, ankle and foot09/27/2014 12/26/2015ASCUS favor mzrzbubdp17Visit for gynecologic vxjaeytrbwm33Postmenopausal HRT (hormone replacement therapy) Overview: offered Gait kuyghyjbnlx68Weakness of both legs Sprain of ankle, leftPCP (pneumocystis jiroveci pneumonia) Acute respiratory failure with mnxoxvsdv97 Overview: Increased O2 requirement overnight (2L to 5L) - bronchoscopy with BAL/TBLB tomorrow 8 AM. - NPO from midnight - hold tonight dose of lovenox. Radiation kjfoixxtudj13 Overview: 40 mg prednisone daily Immunodeficiency with predominant T-cell defect, sdprlwosucs52 Urgency of uogctwxolem63Urinary jjlooufns82 Arm pain, leftBack pain without mhbahdyjw50/19/2014 12/26/2015Abnormal finding on fqpsqaf53Elevated sed rate Hyperpigmentation of skin Overview: --resolved --bilateral breast tissue and axilla --order mycolog cream --monitor Vrtzypqf01 Overview: - c diff pending Mucositis (ulcerative) due to antineoplastic jxotpfx70 Overview: --improved --oxy prn --mouth care measures. Yfdgwd25 Overview: --improved with protonix Elevated LFTs Overview: --increased AST ALT during chemo, resolved. Excess fluid jxsedi07 Overview: --diuresis as needed --continue to monitor volume status CINV (chemotherapy-induced nausea and vomiting) Overview: --Resolved --Ativan PRN (none used) Peripheral juawntbcrz55 Overview: --gabapentin 300mg TID with increased symptoms, bedtime dose of gabapentin increased to 600mg with improvement reported, continue DVT odrcksifrup56 Overview: --platelet count decreasing, d/c heparin SQ --encourage ambulation Wxpmcdwv59 Overview: --ambien PRN at HS, with relief, but with vivid dreams, ambien d/c --restoril at 30mg PRN at HS with relief, continue Chronic chest pain Overview: --now resolved --since Hodgkin lymphoma diagnosis per patient Hospital discharge follow-up Overview: --Patient will need to follow up with Dr. Unger after discharge Wqzkgqnrxvg84 Overview: --patient taking atenolol 100mg BID at home, now BP running lower, decreased atenolol dose to 50mg BID with hypotension. --increase to 75mg BID, d/t tachycardia(HRs >110 while afebrile), HR now controlled, continue --monitor closely Electrolyte and fluid disorders not elsewhere muefzygzed54 DISPOSITION AND FOLLOW-UP Overview: 32 yo female from [place]. Family involved with care, at bedside. 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 will start PO pain meds today 10/27. tolerating percocet, pain relatively well controlled. Hodgkin's disease with nodular rnpyvmrsb37 Overview: Oncology history (per Dr. 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 Hodgkin's disease, aweeuavhymg92Vaginal qzzpkzie64/07/2016 Overview: --likely from thrombocytopenia. No menses in prior 8 months. 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 Premature rqgsgkvie44/07/2016Postmenopausal atrophic qqhepmkca21/07/2016 Kwslyqlpoza49/07/2016documented as of this encounter (statuses as of 05/31/2023) [facility] History of Past illness Narrative* ProblemNoted Date Diagnosed DateResolved DateRadiation induced lttmoucgil81/31/202101/ Menorrhagia with regular cycle Overview: Added automatically from request for surgery [id number] History of pulmonary apdciyda34Neoplastic (malignant) related uytidfd29Hidradenitis gsbiggfxnxk26Vitamin D iozcknpfla36HyperCKemiaElevated aldolase levelChronic pain of both kneesPain in joint, multiple sitesMyalgiaFatigue Malaise and zqqsayi54/04/Gastroesophageal reflux disease without vvbkwxeqqsz64Laryngitis02/23/2015 12/26/2015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 (poly)vhvueelkdp97/10/2015 12/26/2015Papanicolaou smear of cervix with low grade squamous intraepithelial lesion (LGSIL)Pain in joint, ankle and foot09/27/2014 12/26/2015ASCUS favor lvqbochuu82Visit for gynecologic cdtyipamoly46Postmenopausal HRT (hormone replacement therapy) Overview: offered Gait gbrftzjgvid90Weakness of both legs Sprain of ankle, leftPCP (pneumocystis jiroveci pneumonia) Acute respiratory failure with fusjmhwzx00 Overview: Increased O2 requirement overnight (2L to 5L) - bronchoscopy with BAL/TBLB tomorrow 8 AM. - NPO from midnight - hold tonight dose of lovenox. Radiation gworemygmmp20 Overview: 40 mg prednisone daily Immunodeficiency with predominant T-cell defect, agtvkxhlywg76 Urgency of frocffvtcvy75Urinary aexqshrak61 Arm pain, leftBack pain without mebqlcprv60/19/2014 12/26/2015Abnormal finding on mausflo99Elevated sed rate Hyperpigmentation of skin Overview: --resolved --bilateral breast tissue and axilla --order mycolog cream --monitor Nhhtmqjo46 Overview: - c diff pending Mucositis (ulcerative) due to antineoplastic bxtefbw89 Overview: --improved --oxy prn --mouth care measures. Rrafqn12 Overview: --improved with protonix Elevated LFTs Overview: --increased AST ALT during chemo, resolved. Excess fluid yburhy14 Overview: --diuresis as needed --continue to monitor volume status CINV (chemotherapy-induced nausea and vomiting) Overview: --Resolved --Ativan PRN (none used) Peripheral buomsbrsre60 Overview: --gabapentin 300mg TID with increased symptoms, bedtime dose of gabapentin increased to 600mg with improvement reported, continue DVT ksjbozbjaoy52 Overview: --platelet count decreasing, d/c heparin SQ --encourage ambulation Nfjukari87 Overview: --ambien PRN at HS, with relief, but with vivid dreams, ambien d/c --restoril at 30mg PRN at HS with relief, continue Chronic chest pain Overview: --now resolved --since Hodgkin lymphoma diagnosis per patient Hospital discharge follow-up Overview: --Patient will need to follow up with Dr. Unger after discharge Pfebrltaonx64 Overview: --patient taking atenolol 100mg BID at home, now BP running lower, decreased atenolol dose to 50mg BID with hypotension. --increase to 75mg BID, d/t tachycardia(HRs >110 while afebrile), HR now controlled, continue --monitor closely Electrolyte and fluid disorders not elsewhere elkvnrbnlr98 DISPOSITION AND FOLLOW-UP Overview: 32 yo female from [place]. Family involved with care, at bedside. 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 will start PO pain meds today 10/27. tolerating percocet, pain relatively well controlled. Hodgkin's disease with nodular mraqyaval67 Overview: Oncology history (per Dr. 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 Hodgkin's disease, lgobvjfnhtt89Vaginal ognchntm86/07/2016 Overview: --likely from thrombocytopenia. No menses in prior 8 months. 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 Premature qkuvdoczq71/07/2016Postmenopausal atrophic vdwrivzdx30/07/2016 Gsfrhfwgjvu84/07/2016documented as of this encounter (statuses as of 06/01/2023) [facility]2018 History of Past illness Narrative* ProblemNoted Date Resolved DateMenorrhagia with regular cycle Overview: Added automatically from request for surgery [id number] History of pulmonary vvvrviax02Neoplastic (malignant) related ebjbyrl19Hidradenitis fojnkgmuqvn73Vitamin D zntutylygt78HyperCKemiaElevated aldolase levelChronic pain of both kneesPain in joint, multiple sitesMyalgiaFatigue Malaise and oowsomb51Gastroesophageal reflux disease without xjrhsbotgyn96Laryngitis02/23/2015 12/26/2015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 (poly)ojiolmxbmk70/10/2015 12/26/2015Papanicolaou smear of cervix with low grade squamous intraepithelial lesion (LGSIL)Pain in joint, ankle and foot09/27/2014 12/26/2015ASCUS favor srddovssl79Visit for gynecologic klqxlbqopva41Postmenopausal HRT (hormone replacement therapy) Overview: offered Gait boprraimdkz19Weakness of both legs Sprain of ankle, leftPCP (pneumocystis jiroveci pneumonia) Acute respiratory failure with bvqltemie50 Overview: Increased O2 requirement overnight (2L to 5L) - bronchoscopy with BAL/TBLB tomorrow 8 AM. - NPO from midnight - hold tonight dose of lovenox. Radiation ictyvtvcxlp91 Overview: 40 mg prednisone daily Immunodeficiency with predominant T-cell defect, sohlkyfcnej36 Urgency of ddwrageilya37Urinary Arm pain, leftBack pain without bwuxmixzb97/19/2014 12/26/2015Abnormal finding on qpnhoyn73Elevated sed rate Hyperpigmentation of skin Overview: --resolved --bilateral breast tissue and axilla --order mycolog cream --monitor Rwggnvag55 Overview: - c diff pending Mucositis (ulcerative) due to antineoplastic ppsyjpv95 Overview: --improved --oxy prn --mouth care measures. Xjlwnq26 Overview: --improved with protonix Elevated LFTs Overview: --increased AST ALT during chemo, resolved. Excess fluid Overview: --diuresis as needed --continue to monitor volume status CINV (chemotherapy-induced nausea and vomiting) Overview: --Resolved --Ativan PRN (none used) Peripheral bsmjcpzmet61 Overview: --gabapentin 300mg TID with increased symptoms, bedtime dose of gabapentin increased to 600mg with improvement reported, continue DVT Overview: --platelet count decreasing, d/c heparin SQ --encourage ambulation Xarnseau54 Overview: --ambien PRN at HS, with relief, but with vivid dreams, ambien d/c --restoril at 30mg PRN at HS with relief, continue Chronic chest pain Overview: --now resolved --since Hodgkin lymphoma diagnosis per patient Hospital discharge follow-up Overview: --Patient will need to follow up with Dr. Unger after discharge Wplyvwtopdq93 Overview: --patient taking atenolol 100mg BID at home, now BP running lower, decreased atenolol dose to 50mg BID with hypotension. --increase to 75mg BID, d/t tachycardia(HRs >110 while afebrile), HR now controlled, continue --monitor closely Electrolyte and fluid disorders not elsewhere dqspuyacec67 DISPOSITION AND FOLLOW-UP Overview: 32 yo female from [place], [place]. Family involved with care, at bedside. 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 will start PO pain meds today 10/27. tolerating percocet, pain relatively well controlled. Hodgkin's disease with nodular hhptxkeun09 Overview: Oncology history (per Dr. 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 Hodgkin's disease, eishizbbzqo17Vaginal trauodfa75/07/2016 Overview: --likely from thrombocytopenia. No menses in prior 8 months. 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 Premature /07/2016Postmenopausal atrophic hutcjlpyr26/07/2016 Bvkvbujueuw64/07/2016documented as of this encounter (statuses as of 05/17/2021) [facility] History of Past illness Narrative* ProblemNoted Date Resolved DateMenorrhagia with regular cycle Overview: Added automatically from request for surgery [id number] History of pulmonary mtepygeg73Neoplastic (malignant) related cinoxtt15Hidradenitis xwgqirxejtd95Vitamin D ypqntcnnbj60HyperCKemiaElevated aldolase levelChronic pain of both kneesPain in joint, multiple sitesMyalgiaFatigue Malaise and mpwdorq24Gastroesophageal reflux disease without hzwiuqqiyqc10Laryngitis02/23/2015 12/26/2015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 (poly)frzccekaay96/10/2015 12/26/2015Papanicolaou smear of cervix with low grade squamous intraepithelial lesion (LGSIL)Pain in joint, ankle and foot09/27/2014 12/26/2015ASCUS favor ybxpghjld13Visit for gynecologic osxkaahnucr63Postmenopausal HRT (hormone replacement therapy) Overview: offered Gait dsqfwxcafwc80Weakness of both legs Sprain of ankle, leftPCP (pneumocystis jiroveci pneumonia) Acute respiratory failure with sietbaqaf77 Overview: Increased O2 requirement overnight (2L to 5L) - bronchoscopy with BAL/TBLB tomorrow 8 AM. - NPO from midnight - hold tonight dose of lovenox. Radiation lursqnlchze53 Overview: 40 mg prednisone daily Immunodeficiency with predominant T-cell defect, qflklsniihb45 Urgency of ecukzakxyad55Urinary ukamaamge91 Arm pain, leftBack pain without bywhkuida80/19/2014 12/26/2015Abnormal finding on ivcptbn62Elevated sed rate Hyperpigmentation of skin Overview: --resolved --bilateral breast tissue and axilla --order mycolog cream --monitor Kprozmbe81 Overview: - c diff pending Mucositis (ulcerative) due to antineoplastic yzeoudq89 Overview: --improved --oxy prn --mouth care measures. Plntcr15 Overview: --improved with protonix Elevated LFTs Overview: --increased AST ALT during chemo, resolved. Excess fluid fmposa10 Overview: --diuresis as needed --continue to monitor volume status CINV (chemotherapy-induced nausea and vomiting) Overview: --Resolved --Ativan PRN (none used) Peripheral grkccqyica24 Overview: --gabapentin 300mg TID with increased symptoms, bedtime dose of gabapentin increased to 600mg with improvement reported, continue DVT nodupaeqqlt65 Overview: --platelet count decreasing, d/c heparin SQ --encourage ambulation Qnwfeurv33 Overview: --ambien PRN at HS, with relief, but with vivid dreams, ambien d/c --restoril at 30mg PRN at HS with relief, continue Chronic chest pain Overview: --now resolved --since Hodgkin lymphoma diagnosis per patient Hospital discharge follow-up Overview: --Patient will need to follow up with Dr. Unger after discharge Xhzllesyjbh81 Overview: --patient taking atenolol 100mg BID at home, now BP running lower, decreased atenolol dose to 50mg BID with hypotension. --increase to 75mg BID, d/t tachycardia(HRs >110 while afebrile), HR now controlled, continue --monitor closely Electrolyte and fluid disorders not elsewhere drsjwvditl37 DISPOSITION AND FOLLOW-UP Overview: 32 yo female from [place], [place]. Family involved with care, at bedside. 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 will start PO pain meds today 10/27. tolerating percocet, pain relatively well controlled. Hodgkin's disease with nodular doiekjjhs00 Overview: Oncology history (per Dr. 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 Hodgkin's disease, fuwtxohbvfp03Vaginal /07/2016 Overview: --likely from thrombocytopenia. No menses in prior 8 months. 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 Premature jggjfbidz91/07/2016Postmenopausal atrophic mhiznkuqq74/07/2016 Kusfeqhmdpm69/07/2016documented as of this encounter (statuses as of 05/17/2021) [facility] History of Past illness Narrative* ProblemNoted Date Resolved DateMenorrhagia with regular cycle Overview: Added automatically from request for surgery [id number] History of pulmonary vhceallj19Neoplastic (malignant) related flawvaf37Hidradenitis zmldcqdvjdu26Vitamin D sabuuqocss01HyperCKemiaElevated aldolase levelChronic pain of both knees05/05/Pain in joint, multiple sitesMyalgiaFatigue Malaise and jfalvss29Gastroesophageal reflux disease without wyutbesjiro01Laryngitis02/23/2015 12/26/2015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 (poly)nckxijdsdm79/10/2015 12/26/2015Papanicolaou smear of cervix with low grade squamous intraepithelial lesion (LGSIL)Pain in joint, ankle and foot09/27/2014 12/26/2015ASCUS favor dtxehjgxc52Visit for gynecologic eumegbloiyl36Postmenopausal HRT (hormone replacement therapy) Overview: offered Gait ntehxgpirjk75Weakness of both legs Sprain of ankle, leftPCP (pneumocystis jiroveci pneumonia) Acute respiratory failure with ilgzhhwsm90 Overview: Increased O2 requirement overnight (2L to 5L) - bronchoscopy with BAL/TBLB tomorrow 8 AM. - NPO from midnight - hold tonight dose of lovenox. Radiation bgyxhghjvwr68 Overview: 40 mg prednisone daily Immunodeficiency with predominant T-cell defect, veckzmqgzbo03 Urgency of jiwgrcmzgox13Urinary gpfthkyax60 Arm pain, leftBack pain without xzqxuxetl19/19/2014 12/26/2015Abnormal finding on igdgooa09Elevated sed rate Hyperpigmentation of skin Overview: --resolved --bilateral breast tissue and axilla --order mycolog cream --monitor Jwjwlczo02 Overview: - c diff pending Mucositis (ulcerative) due to antineoplastic lvtseli24 Overview: --improved --oxy prn --mouth care measures. Aalzto39 Overview: --improved with protonix Elevated LFTs Overview: --increased AST ALT during chemo, resolved. Excess fluid vetsul73 Overview: --diuresis as needed --continue to monitor volume status CINV (chemotherapy-induced nausea and vomiting) Overview: --Resolved --Ativan PRN (none used) Peripheral ztegzjzxhn40 Overview: --gabapentin 300mg TID with increased symptoms, bedtime dose of gabapentin increased to 600mg with improvement reported, continue DVT twqlfalcitl64 Overview: --platelet count decreasing, d/c heparin SQ --encourage ambulation Pjtwodcp67 Overview: --ambien PRN at HS, with relief, but with vivid dreams, ambien d/c --restoril at 30mg PRN at HS with relief, continue Chronic chest pain Overview: --now resolved --since Hodgkin lymphoma diagnosis per patient Hospital discharge follow-up Overview: --Patient will need to follow up with Dr. Unger after discharge Cgohxxjvdjz39 Overview: --patient taking atenolol 100mg BID at home, now BP running lower, decreased atenolol dose to 50mg BID with hypotension. --increase to 75mg BID, d/t tachycardia(HRs >110 while afebrile), HR now controlled, continue --monitor closely Electrolyte and fluid disorders not elsewhere xgqxfpkswa61 DISPOSITION AND FOLLOW-UP Overview: 32 yo female from [place], [place]. Family involved with care, at bedside. 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 will start PO pain meds today 10/27. tolerating percocet, pain relatively well controlled. Hodgkin's disease with nodular Overview: Oncology history (per Dr. 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 Hodgkin's disease, rtgdrbeqkqh44/18/201203/Vaginal lookesew72/07/2016 Overview: --likely from thrombocytopenia. No menses in prior 8 months. 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 Premature yyvjejhxr73/07/2016Postmenopausal atrophic xlvdetbhv83/07/2016 Aabhrhqedbs08/07/2016documented as of this encounter (statuses as of 05/17/2021) [facility]2018 History of Past illness Narrative* ProblemNoted Date Resolved DateMenorrhagia with regular cycle Overview: Added automatically from request for surgery [id number] History of pulmonary zimfyhlc25Neoplastic (malignant) related klhudxx79Hidradenitis ouvgaogtgtl18Vitamin D sotiwcliwd71HyperCKemiaElevated aldolase levelChronic pain of both kneesPain in joint, multiple sitesMyalgiaFatigue Malaise and gbxezgh62Gastroesophageal reflux disease without czczwirwbqi00Laryngitis02/23/2015 12/26/2015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 (poly)txqschuwfr24/10/2015 12/26/2015Papanicolaou smear of cervix with low grade squamous intraepithelial lesion (LGSIL)Pain in joint, ankle and foot09/27/2014 12/26/2015ASCUS favor bamgtemhu18Visit for gynecologic egmoukfgqbc11Postmenopausal HRT (hormone replacement therapy) Overview: offered Gait dabrrqbohle41Weakness of both legs Sprain of ankle, leftPCP (pneumocystis jiroveci pneumonia) Acute respiratory failure with biaemgtxf72 Overview: Increased O2 requirement overnight (2L to 5L) - bronchoscopy with BAL/TBLB tomorrow 8 AM. - NPO from midnight - hold tonight dose of lovenox. Radiation uvlquumhici67 Overview: 40 mg prednisone daily Immunodeficiency with predominant T-cell defect, ulugcgejgzi14 Urgency of qlsynewqdwf62Urinary xpufhuqpm90 Arm pain, leftBack pain without fprxyjjny54/19/2014 12/26/2015Abnormal finding on xbnijbi01Elevated sed rate Hyperpigmentation of skin Overview: --resolved --bilateral breast tissue and axilla --order mycolog cream --monitor Qbmwwzjs06 Overview: - c diff pending Mucositis (ulcerative) due to antineoplastic qqodmom78 Overview: --improved --oxy prn --mouth care measures. Wlxooz58 Overview: --improved with protonix Elevated LFTs Overview: --increased AST ALT during chemo, resolved. Excess fluid meivwt24 Overview: --diuresis as needed --continue to monitor volume status CINV (chemotherapy-induced nausea and vomiting) Overview: --Resolved --Ativan PRN (none used) Peripheral ptygfvhjpi63 Overview: --gabapentin 300mg TID with increased symptoms, bedtime dose of gabapentin increased to 600mg with improvement reported, continue DVT yjinufwjrex54 Overview: --platelet count decreasing, d/c heparin SQ --encourage ambulation Snevhlti66 Overview: --ambien PRN at HS, with relief, but with vivid dreams, ambien d/c --restoril at 30mg PRN at HS with relief, continue Chronic chest pain Overview: --now resolved --since Hodgkin lymphoma diagnosis per patient Hospital discharge follow-up Overview: --Patient will need to follow up with Dr. Unger after discharge Smmzmboajuy96 Overview: --patient taking atenolol 100mg BID at home, now BP running lower, decreased atenolol dose to 50mg BID with hypotension. --increase to 75mg BID, d/t tachycardia(HRs >110 while afebrile), HR now controlled, continue --monitor closely Electrolyte and fluid disorders not elsewhere myjfyelpdz12 DISPOSITION AND FOLLOW-UP Overview: 32 yo female from [place], [place]. Family involved with care, at bedside. 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 will start PO pain meds today 10/27. tolerating percocet, pain relatively well controlled. Hodgkin's disease with nodular hueyhytcj03 Overview: Oncology history (per Dr. 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 Hodgkin's disease, oqecnpsqwyd52Vaginal ofzxtrfs29/07/2016 Overview: --likely from thrombocytopenia. No menses in prior 8 months. 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 Premature ozpwfagme64/07/2016Postmenopausal atrophic /07/2016 Fpfmvoxpjzu11/07/2016documented as of this encounter (statuses as of 05/17/2021) [facility] History of Past illness Narrative* ProblemNoted Date Resolved DateMenorrhagia with regular cycle Overview: Added automatically from request for surgery [id number] History of pulmonary yjjpmgnu78Neoplastic (malignant) related zyydfpx19Hidradenitis xskqqtmcqmh96Vitamin D jbmxjrfdin36HyperCKemiaElevated aldolase levelChronic pain of both kneesPain in joint, multiple sitesMyalgiaFatigue Malaise and uaskbtp05Gastroesophageal reflux disease without ewczltibhbr34Laryngitis02/23/2015 12/26/2015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 (poly)prwclkdibj11/10/2015 12/26/2015Papanicolaou smear of cervix with low grade squamous intraepithelial lesion (LGSIL)Pain in joint, ankle and foot09/27/2014 12/26/2015ASCUS favor lndbnmjpq53Visit for gynecologic mrmbxbkawzm48Postmenopausal HRT (hormone replacement therapy) Overview: offered Gait hsouuqbmdyg43Weakness of both legs Sprain of ankle, leftPCP (pneumocystis jiroveci pneumonia) Acute respiratory failure with Overview: Increased O2 requirement overnight (2L to 5L) - bronchoscopy with BAL/TBLB tomorrow 8 AM. - NPO from midnight - hold tonight dose of lovenox. Radiation bladwpidszg55 Overview: 40 mg prednisone daily Immunodeficiency with predominant T-cell defect, uvuwffbtvrs05 Urgency of ggoukxmtfba81Urinary Arm pain, leftBack pain without hjhltuufn88/19/2014 12/26/2015Abnormal finding on ishjifr31Elevated sed rate Hyperpigmentation of skin Overview: --resolved --bilateral breast tissue and axilla --order mycolog cream --monitor Uaueeelt06 Overview: - c diff pending Mucositis (ulcerative) due to antineoplastic izkinnl01 Overview: --improved --oxy prn --mouth care measures. Mhpjnd93 Overview: --improved with protonix Elevated LFTs Overview: --increased AST ALT during chemo, resolved. Excess fluid olmcba03 Overview: --diuresis as needed --continue to monitor volume status CINV (chemotherapy-induced nausea and vomiting) Overview: --Resolved --Ativan PRN (none used) Peripheral bokrcedcwv90 Overview: --gabapentin 300mg TID with increased symptoms, bedtime dose of gabapentin increased to 600mg with improvement reported, continue DVT yyzwljgrmvi12 Overview: --platelet count decreasing, d/c heparin SQ --encourage ambulation Jpugmemh50 Overview: --ambien PRN at HS, with relief, but with vivid dreams, ambien d/c --restoril at 30mg PRN at HS with relief, continue Chronic chest pain Overview: --now resolved --since Hodgkin lymphoma diagnosis per patient Hospital discharge follow-up Overview: --Patient will need to follow up with Dr. Unger after discharge Txsgxzbvjdi14 Overview: --patient taking atenolol 100mg BID at home, now BP running lower, decreased atenolol dose to 50mg BID with hypotension. --increase to 75mg BID, d/t tachycardia(HRs >110 while afebrile), HR now controlled, continue --monitor closely Electrolyte and fluid disorders not elsewhere eikbzkmfzl31 DISPOSITION AND FOLLOW-UP Overview: 32 yo female from [place]. Family involved with care, at bedside. 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 will start PO pain meds today 10/27. tolerating percocet, pain relatively well controlled. Hodgkin's disease with nodular sasgkdjzq31 Overview: Oncology history (per Dr. 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 Hodgkin's disease, issplddtkrp81Vaginal mlsrxfso11/07/2016 Overview: --likely from thrombocytopenia. No menses in prior 8 months. 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 Premature hntypfuxx56/07/2016Postmenopausal atrophic /07/2016 Fnotblttukh09/07/2016documented as of this encounter (statuses as of 05/17/2021) [facility] History of Past illness Narrative* ProblemNoted Date Resolved DateMenorrhagia with regular cycle Overview: Added automatically from request for surgery [id number] History of pulmonary ekrfqjdv29Neoplastic (malignant) related zuffpbr43Hidradenitis kwqyzotjict84Vitamin D ksphbryrku60HyperCKemiaElevated aldolase levelChronic pain of both kneesPain in joint, multiple sitesMyalgiaFatigue Malaise and hbnarsn64Gastroesophageal reflux disease without xdrnznnpckl34Laryngitis02/23/2015 12/26/2015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 (poly)/10/2015 12/26/2015Papanicolaou smear of cervix with low grade squamous intraepithelial lesion (LGSIL)Pain in joint, ankle and foot09/27/2014 12/26/2015ASCUS favor ykylcamgw81Visit for gynecologic yejlkbxlcyh81Postmenopausal HRT (hormone replacement therapy) Overview: offered Gait ipxemnzqwol49Weakness of both legs Sprain of ankle, leftPCP (pneumocystis jiroveci pneumonia) Acute respiratory failure with xfqyljkqt62 Overview: Increased O2 requirement overnight (2L to 5L) - bronchoscopy with BAL/TBLB tomorrow 8 AM. - NPO from midnight - hold tonight dose of lovenox. Radiation tlhqauwzrhb47 Overview: 40 mg prednisone daily Immunodeficiency with predominant T-cell defect, jhlrjkugiio16 Urgency of yhrjjhreufe18Urinary anqolxdgx39 Arm pain, leftBack pain without xlpflqywu81/19/2014 12/26/2015Abnormal finding on jnrzltb28Elevated sed rate Hyperpigmentation of skin Overview: --resolved --bilateral breast tissue and axilla --order mycolog cream --monitor Enkrnlij49 Overview: - c diff pending Mucositis (ulcerative) due to antineoplastic ycvsueg41 Overview: --improved --oxy prn --mouth care measures. Lorbxe43 Overview: --improved with protonix Elevated LFTs Overview: --increased AST ALT during chemo, resolved. Excess fluid gilyel89 Overview: --diuresis as needed --continue to monitor volume status CINV (chemotherapy-induced nausea and vomiting) Overview: --Resolved --Ativan PRN (none used) Peripheral purapuypov09 Overview: --gabapentin 300mg TID with increased symptoms, bedtime dose of gabapentin increased to 600mg with improvement reported, continue DVT zutjecbnikp58 Overview: --platelet count decreasing, d/c heparin SQ --encourage ambulation Mmgfdcms35 Overview: --ambien PRN at HS, with relief, but with vivid dreams, ambien d/c --restoril at 30mg PRN at HS with relief, continue Chronic chest pain Overview: --now resolved --since Hodgkin lymphoma diagnosis per patient Hospital discharge follow-up Overview: --Patient will need to follow up with Dr. Unger after discharge Vntttkusroe74 Overview: --patient taking atenolol 100mg BID at home, now BP running lower, decreased atenolol dose to 50mg BID with hypotension. --increase to 75mg BID, d/t tachycardia(HRs >110 while afebrile), HR now controlled, continue --monitor closely Electrolyte and fluid disorders not elsewhere bqfcdrpvob13 DISPOSITION AND FOLLOW-UP Overview: 32 yo female from [place], [place]. Family involved with care, at bedside. 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 will start PO pain meds today 10/27. tolerating percocet, pain relatively well controlled. Hodgkin's disease with nodular bpzlgfizv25 Overview: Oncology history (per Dr. 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 Hodgkin's disease, lomsyivdxjy09Vaginal /07/2016 Overview: --likely from thrombocytopenia. No menses in prior 8 months. 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 Premature joncjfwpa76/07/2016Postmenopausal atrophic bodeajwcc75/07/2016 Efrgkaixalc98/07/2016documented as of this encounter (statuses as of 05/17/2021) [facility] History of Past illness Narrative* ProblemNoted Date Resolved DateMenorrhagia with regular cycle Overview: Added automatically from request for surgery [id number] History of pulmonary rwschnat59Neoplastic (malignant) related rwfhmft76Hidradenitis upszqonafzs08Vitamin D begmmonrrb43HyperCKemiaElevated aldolase levelChronic pain of both kneesPain in joint, multiple sitesMyalgiaFatigue Malaise and ycnaiwd77Gastroesophageal reflux disease without zcxbpcxkuiu48Laryngitis02/23/2015 12/26/2015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 (poly)otnxhirofe93/10/2015 12/26/2015Papanicolaou smear of cervix with low grade squamous intraepithelial lesion (LGSIL)Pain in joint, ankle and foot09/27/2014 12/26/2015ASCUS favor ozdtholvs48Visit for gynecologic crelwiyaavq80Postmenopausal HRT (hormone replacement therapy) Overview: offered Gait hbtfsachcmn56Weakness of both legs Sprain of ankle, leftPCP (pneumocystis jiroveci pneumonia) Acute respiratory failure with gemaxksws40 Overview: Increased O2 requirement overnight (2L to 5L) - bronchoscopy with BAL/TBLB tomorrow 8 AM. - NPO from midnight - hold tonight dose of lovenox. Radiation cnkammdvxdw27 Overview: 40 mg prednisone daily Immunodeficiency with predominant T-cell defect, ymhuylqpcxa07 Urgency of fkczexccium89Urinary siqgsehas64 Arm pain, leftBack pain without vptclfjce17/19/2014 12/26/2015Abnormal finding on jadrnjq59Elevated sed rate Hyperpigmentation of skin Overview: --resolved --bilateral breast tissue and axilla --order mycolog cream --monitor Jdwgfqau03 Overview: - c diff pending Mucositis (ulcerative) due to antineoplastic hucmrzv01 Overview: --improved --oxy prn --mouth care measures. Rqsasx22 Overview: --improved with protonix Elevated LFTs Overview: --increased AST ALT during chemo, resolved. Excess fluid bsevmg38 Overview: --diuresis as needed --continue to monitor volume status CINV (chemotherapy-induced nausea and vomiting) Overview: --Resolved --Ativan PRN (none used) Peripheral ewnjekytll36 Overview: --gabapentin 300mg TID with increased symptoms, bedtime dose of gabapentin increased to 600mg with improvement reported, continue DVT qaowsempnkx27 Overview: --platelet count decreasing, d/c heparin SQ --encourage ambulation Hriaiidy94 Overview: --ambien PRN at HS, with relief, but with vivid dreams, ambien d/c --restoril at 30mg PRN at HS with relief, continue Chronic chest pain Overview: --now resolved --since Hodgkin lymphoma diagnosis per patient Hospital discharge follow-up Overview: --Patient will need to follow up with Dr. Unger after discharge Bnznpsffvno02 Overview: --patient taking atenolol 100mg BID at home, now BP running lower, decreased atenolol dose to 50mg BID with hypotension. --increase to 75mg BID, d/t tachycardia(HRs >110 while afebrile), HR now controlled, continue --monitor closely Electrolyte and fluid disorders not elsewhere jyxkncckfs50 DISPOSITION AND FOLLOW-UP Overview: 32 yo female from [place], [place]. Family involved with care, at bedside. 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 will start PO pain meds today 10/27. tolerating percocet, pain relatively well controlled. Hodgkin's disease with nodular tlquniddg60 Overview: Oncology history (per Dr. 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 Hodgkin's disease, wdvxmcseyct89Vaginal vpitritd28/07/2016 Overview: --likely from thrombocytopenia. No menses in prior 8 months. 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 Premature atqldfijz14/07/2016Postmenopausal atrophic joeqyflhn58/07/2016 Meoozhfxpcn12/07/2016documented as of this encounter (statuses as of 05/19/2021) [facility] History of Past illness Narrative* ProblemNoted Date Resolved DateMenorrhagia with regular cycle Overview: Added automatically from request for surgery [id number] History of pulmonary eqjokxyk44Neoplastic (malignant) related msdbxrp68Hidradenitis xbhmeexhqki29Vitamin D qpypqaopvx89HyperCKemiaElevated aldolase levelChronic pain of both kneesPain in joint, multiple sitesMyalgiaFatigue Malaise and geckmxy60Gastroesophageal reflux disease without hrvbtelkqjc42Laryngitis02/23/2015 12/26/2015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 (poly)mbjrjgfiny02/10/2015 12/26/2015Papanicolaou smear of cervix with low grade squamous intraepithelial lesion (LGSIL)Pain in joint, ankle and foot09/27/2014 12/26/2015ASCUS favor vdxtldxht53Visit for gynecologic grqwqtzikqp70Postmenopausal HRT (hormone replacement therapy) Overview: offered Gait nalfklnkvzc53Weakness of both legs Sprain of ankle, leftPCP (pneumocystis jiroveci pneumonia) Acute respiratory failure with ogkurdmrs21 Overview: Increased O2 requirement overnight (2L to 5L) - bronchoscopy with BAL/TBLB tomorrow 8 AM. - NPO from midnight - hold tonight dose of lovenox. Radiation jfqvxjkchat10 Overview: 40 mg prednisone daily Immunodeficiency with predominant T-cell defect, ypywcynvvjz61 Urgency of tzrkkxprlyq41Urinary bwitoigun36 Arm pain, leftBack pain without hqfszsicn77/19/2014 12/26/2015Abnormal finding on ansprxc16Elevated sed rate Hyperpigmentation of skin Overview: --resolved --bilateral breast tissue and axilla --order mycolog cream --monitor Rccypzwn41 Overview: - c diff pending Mucositis (ulcerative) due to antineoplastic zcyifjy84 Overview: --improved --oxy prn --mouth care measures. Mmhiyd42 Overview: --improved with protonix Elevated LFTs Overview: --increased AST ALT during chemo, resolved. Excess fluid Overview: --diuresis as needed --continue to monitor volume status CINV (chemotherapy-induced nausea and vomiting) Overview: --Resolved --Ativan PRN (none used) Peripheral zyyelflzug13 Overview: --gabapentin 300mg TID with increased symptoms, bedtime dose of gabapentin increased to 600mg with improvement reported, continue DVT cgemchlarer66 Overview: --platelet count decreasing, d/c heparin SQ --encourage ambulation Vbzpldeh17 Overview: --ambien PRN at HS, with relief, but with vivid dreams, ambien d/c --restoril at 30mg PRN at HS with relief, continue Chronic chest pain Overview: --now resolved --since Hodgkin lymphoma diagnosis per patient Hospital discharge follow-up Overview: --Patient will need to follow up with Dr. Unger after discharge Lqfjdvklvuz31 Overview: --patient taking atenolol 100mg BID at home, now BP running lower, decreased atenolol dose to 50mg BID with hypotension. --increase to 75mg BID, d/t tachycardia(HRs >110 while afebrile), HR now controlled, continue --monitor closely Electrolyte and fluid disorders not elsewhere mjrogsnypp23 DISPOSITION AND FOLLOW-UP Overview: 32 yo female from [place], [place]. Family involved with care, at bedside. 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 will start PO pain meds today 10/27. tolerating percocet, pain relatively well controlled. Hodgkin's disease with nodular yjiazjzqo34 Overview: Oncology history (per Dr. 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 Hodgkin's disease, gevjutppawh18Vaginal jxeesinh49/07/2016 Overview: --likely from thrombocytopenia. No menses in prior 8 months. 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 Premature usdkoqiqm64/07/2016Postmenopausal atrophic bieyshstc00/07/2016 Brmignkrxju07/07/2016documented as of this encounter (statuses as of 06/06/2021) [facility]2018 History of Past illness Narrative* ProblemNoted Date Resolved DateMenorrhagia with regular cycle Overview: Added automatically from request for surgery [id number] History of pulmonary axcidlro96Neoplastic (malignant) related oyfqrnd43Hidradenitis sufzyzszydn18Vitamin D mnnvzznnus97HyperCKemiaElevated aldolase levelChronic pain of both kneesPain in joint, multiple sitesMyalgiaFatigue Malaise and nlfouce58Gastroesophageal reflux disease without mmslcqcoqlk66Laryngitis02/23/2015 12/26/2015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 (poly)amayladfxw88/10/2015 12/26/2015Papanicolaou smear of cervix with low grade squamous intraepithelial lesion (LGSIL)Pain in joint, ankle and foot09/27/2014 12/26/2015ASCUS favor boiyklcas55Visit for gynecologic idgjgfyglrg01Postmenopausal HRT (hormone replacement therapy) Overview: offered Gait hqvmzipyxgj63Weakness of both legs Sprain of ankle, leftPCP (pneumocystis jiroveci pneumonia) Acute respiratory failure with iwrmpqtsz81 Overview: Increased O2 requirement overnight (2L to 5L) - bronchoscopy with BAL/TBLB tomorrow 8 AM. - NPO from midnight - hold tonight dose of lovenox. Radiation gztqfyivzbm38 Overview: 40 mg prednisone daily Immunodeficiency with predominant T-cell defect, zmfrbuqjguu42 Urgency of ryncyxfwrdc05Urinary tsqzllsuo63 Arm pain, leftBack pain without enkdakzrb79/19/2014 12/26/2015Abnormal finding on rbezlmr62Elevated sed rate Hyperpigmentation of skin Overview: --resolved --bilateral breast tissue and axilla --order mycolog cream --monitor Hulhbcuu57 Overview: - c diff pending Mucositis (ulcerative) due to antineoplastic wkzoxhg93 Overview: --improved --oxy prn --mouth care measures. Bjlens57 Overview: --improved with protonix Elevated LFTs Overview: --increased AST ALT during chemo, resolved. Excess fluid mirsbr69 Overview: --diuresis as needed --continue to monitor volume status CINV (chemotherapy-induced nausea and vomiting) Overview: --Resolved --Ativan PRN (none used) Peripheral jmvsbhixcv20 Overview: --gabapentin 300mg TID with increased symptoms, bedtime dose of gabapentin increased to 600mg with improvement reported, continue DVT obshpndmzio08 Overview: --platelet count decreasing, d/c heparin SQ --encourage ambulation Lcfgzrsy67 Overview: --ambien PRN at HS, with relief, but with vivid dreams, jeffien d/c --restoril at 30mg PRN at HS with relief, continue Chronic chest pain Overview: --now resolved --since Hodgkin lymphoma diagnosis per patient Hospital discharge follow-up Overview: --Patient will need to follow up with Dr. Unger after discharge Aghuhbkavtg24 Overview: --patient taking atenolol 100mg BID at home, now BP running lower, decreased atenolol dose to 50mg BID with hypotension. --increase to 75mg BID, d/t tachycardia(HRs >110 while afebrile), HR now controlled, continue --monitor closely Electrolyte and fluid disorders not elsewhere lkualytjdw41 DISPOSITION AND FOLLOW-UP Overview: 32 yo female from [place], [place]. Family involved with care, at bedside. 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 will start PO pain meds today 10/27. tolerating percocet, pain relatively well controlled. Hodgkin's disease with nodular emukmtksy24 Overview: Oncology history (per Dr. 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 Hodgkin's disease, gairgkrkhzt53Vaginal gbsuwxkt66/07/2016 Overview: --likely from thrombocytopenia. No menses in prior 8 months. 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 Premature fgstwuqym09/07/2016Postmenopausal atrophic vtmarluht26/07/2016 Iqycfydekwa93/07/2016documented as of this encounter (statuses as of 06/07/2021) [facility] History of Past illness Narrative* ProblemNoted Date Resolved DateMenorrhagia with regular cycle Overview: Added automatically from request for surgery [id number] History of pulmonary biybyjbn77Neoplastic (malignant) related fzxhfcc69Hidradenitis vtpnersirdr07Vitamin D myfksjnlbj21HyperCKemiaElevated aldolase levelChronic pain of both kneesPain in joint, multiple sitesMyalgiaFatigue Malaise and ohuofvg67Gastroesophageal reflux disease without inajtadzfia25Laryngitis02/23/2015 12/26/2015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 (poly)anxiolxyxq33/10/2015 12/26/2015Papanicolaou smear of cervix with low grade squamous intraepithelial lesion (LGSIL)Pain in joint, ankle and foot09/27/2014 12/26/2015ASCUS favor iakchiozf25Visit for gynecologic pglgxsqfgyb42Postmenopausal HRT (hormone replacement therapy) Overview: offered Gait yszjqghzfso98Weakness of both legs Sprain of ankle, leftPCP (pneumocystis jiroveci pneumonia) Acute respiratory failure with klcrpuvin04 Overview: Increased O2 requirement overnight (2L to 5L) - bronchoscopy with BAL/TBLB tomorrow 8 AM. - NPO from midnight - hold tonight dose of lovenox. Radiation hafzptvhjwp85 Overview: 40 mg prednisone daily Immunodeficiency with predominant T-cell defect, vdxjimjugjj72 Urgency of yoihgduhgzz57Urinary sbqpobdcj15 Arm pain, leftBack pain without ymtdmvbed53/19/2014 12/26/2015Abnormal finding on hpvuicu30Elevated sed rate Hyperpigmentation of skin Overview: --resolved --bilateral breast tissue and axilla --order mycolog cream --monitor Xvhmxlhd68 Overview: - c diff pending Mucositis (ulcerative) due to antineoplastic onjojfy76 Overview: --improved --oxy prn --mouth care measures. Inossv87 Overview: --improved with protonix Elevated LFTs Overview: --increased AST ALT during chemo, resolved. Excess fluid sfzyqu17 Overview: --diuresis as needed --continue to monitor volume status CINV (chemotherapy-induced nausea and vomiting) Overview: --Resolved --Ativan PRN (none used) Peripheral dkzbyikfyw19 Overview: --gabapentin 300mg TID with increased symptoms, bedtime dose of gabapentin increased to 600mg with improvement reported, continue DVT eqfiwlllspb11 Overview: --platelet count decreasing, d/c heparin SQ --encourage ambulation Qbpdtcxf93 Overview: --ambien PRN at HS, with relief, but with vivid dreams, ambien d/c --restoril at 30mg PRN at HS with relief, continue Chronic chest pain Overview: --now resolved --since Hodgkin lymphoma diagnosis per patient Hospital discharge follow-up Overview: --Patient will need to follow up with Dr. Unger after discharge Tkmeadfcdaz25 Overview: --patient taking atenolol 100mg BID at home, now BP running lower, decreased atenolol dose to 50mg BID with hypotension. --increase to 75mg BID, d/t tachycardia(HRs >110 while afebrile), HR now controlled, continue --monitor closely Electrolyte and fluid disorders not elsewhere ksxiyeuhvz24 DISPOSITION AND FOLLOW-UP Overview: 32 yo female from [place]. Family involved with care, at bedside. 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 will start PO pain meds today 10/27. tolerating percocet, pain relatively well controlled. Hodgkin's disease with nodular ibkqwzhgi54 Overview: Oncology history (per Dr. 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 Hodgkin's disease, lcagzddeegn00Vaginal vlfajwoy54/07/2016 Overview: --likely from thrombocytopenia. No menses in prior 8 months. 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 Premature emfbprpiq60/07/2016Postmenopausal atrophic coqapvduv65/07/2016 Wbizuzblgfi86/07/2016documented as of this encounter (statuses as of 06/14/2021) [facility] History of Past illness Narrative* ProblemNoted Date Resolved DateMenorrhagia with regular cycle Overview: Added automatically from request for surgery [id number] History of pulmonary hvmvyqmk11Neoplastic (malignant) related ahcdwmt15Hidradenitis peixkuzchhd60Vitamin D ovpgeawnqd56HyperCKemiaElevated aldolase levelChronic pain of both kneesPain in joint, multiple sitesMyalgiaFatigue Malaise and yyzzhnm33Gastroesophageal reflux disease without zymnemuqyjc68Laryngitis02/23/2015 12/26/2015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 (poly)ymsiaspkuq14/10/2015 12/26/2015Papanicolaou smear of cervix with low grade squamous intraepithelial lesion (LGSIL)Pain in joint, ankle and foot09/27/2014 12/26/2015ASCUS favor jsaxbjord20Visit for gynecologic jujqhnrbsqj92Postmenopausal HRT (hormone replacement therapy) Overview: offered Gait igumtxkpnth30Weakness of both legs Sprain of ankle, leftPCP (pneumocystis jiroveci pneumonia) Acute respiratory failure with Overview: Increased O2 requirement overnight (2L to 5L) - bronchoscopy with BAL/TBLB tomorrow 8 AM. - NPO from midnight - hold tonight dose of lovenox. Radiation ddezecoeoug96 Overview: 40 mg prednisone daily Immunodeficiency with predominant T-cell defect, fqzyauqgajd48 Urgency of ugmmyozvvmf88Urinary gejhdiwnw85 Arm pain, leftBack pain without cusdtejcc08/19/2014 12/26/2015Abnormal finding on gjrklfr97Elevated sed rate Hyperpigmentation of skin Overview: --resolved --bilateral breast tissue and axilla --order mycolog cream --monitor Vjyoolwv54 Overview: - c diff pending Mucositis (ulcerative) due to antineoplastic wiuswjw06 Overview: --improved --oxy prn --mouth care measures. Lecmkn71 Overview: --improved with protonix Elevated LFTs Overview: --increased AST ALT during chemo, resolved. Excess fluid objysp08 Overview: --diuresis as needed --continue to monitor volume status CINV (chemotherapy-induced nausea and vomiting) Overview: --Resolved --Ativan PRN (none used) Peripheral ylmqtydnyc15 Overview: --gabapentin 300mg TID with increased symptoms, bedtime dose of gabapentin increased to 600mg with improvement reported, continue DVT Overview: --platelet count decreasing, d/c heparin SQ --encourage ambulation Lxpzotll20 Overview: --ambien PRN at HS, with relief, but with vivid dreams, ambien d/c --restoril at 30mg PRN at HS with relief, continue Chronic chest pain Overview: --now resolved --since Hodgkin lymphoma diagnosis per patient Hospital discharge follow-up Overview: --Patient will need to follow up with Dr. Unger after discharge Yvrlesgmfxr69 Overview: --patient taking atenolol 100mg BID at home, now BP running lower, decreased atenolol dose to 50mg BID with hypotension. --increase to 75mg BID, d/t tachycardia(HRs >110 while afebrile), HR now controlled, continue --monitor closely Electrolyte and fluid disorders not elsewhere DISPOSITION AND FOLLOW-UP Overview: 32 yo female from [place]. Family involved with care, at bedside. 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 will start PO pain meds today 10/27. tolerating percocet, pain relatively well controlled. Hodgkin's disease with nodular nxwujpzep66 Overview: Oncology history (per Dr. 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 Hodgkin's disease, zvscrmmgcxy82Vaginal dnezaxoc37/07/2016 Overview: --likely from thrombocytopenia. No menses in prior 8 months. 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 Premature eqkcnzzvz83/07/2016Postmenopausal atrophic yoremzmou88/07/2016 Tuipzicfcdf88/07/2016documented as of this encounter (statuses as of 06/14/2021) [facility] History of Past illness Narrative* ProblemNoted Date Resolved DateMenorrhagia with regular cycle Overview: Added automatically from request for surgery [id number] History of pulmonary hyfkyjim15Neoplastic (malignant) related mxofbpx23Hidradenitis uxyhbxeznwk54Vitamin D eyzjzmyxyu89HyperCKemiaElevated aldolase levelChronic pain of both kneesPain in joint, multiple sitesMyalgiaFatigue Malaise and ffoqyku58Gastroesophageal reflux disease without lkvzzvunkhu70Laryngitis02/23/2015 12/26/2015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 (poly)bjeyfbxuor80/10/2015 12/26/2015Papanicolaou smear of cervix with low grade squamous intraepithelial lesion (LGSIL)Pain in joint, ankle and foot09/27/2014 12/26/2015ASCUS favor wfkhlevlq46Visit for gynecologic vbuonxrdrwm84Postmenopausal HRT (hormone replacement therapy) Overview: offered Gait sudyflxnqju91Weakness of both legs Sprain of ankle, leftPCP (pneumocystis jiroveci pneumonia) Acute respiratory failure with uqvlgxqsz85 Overview: Increased O2 requirement overnight (2L to 5L) - bronchoscopy with BAL/TBLB tomorrow 8 AM. - NPO from midnight - hold tonight dose of lovenox. Radiation gzzwyawzrll64 Overview: 40 mg prednisone daily Immunodeficiency with predominant T-cell defect, ftcqjilzxef26 Urgency of anrclrnepsk01Urinary rkdlcowmd74 Arm pain, leftBack pain without vmnsenfbq55/19/2014 12/26/2015Abnormal finding on ltmpydp31Elevated sed rate Hyperpigmentation of skin Overview: --resolved --bilateral breast tissue and axilla --order mycolog cream --monitor Gavsrqdh80 Overview: - c diff pending Mucositis (ulcerative) due to antineoplastic jlorsye98 Overview: --improved --oxy prn --mouth care measures. Fzqryq36 Overview: --improved with protonix Elevated LFTs Overview: --increased AST ALT during chemo, resolved. Excess fluid Overview: --diuresis as needed --continue to monitor volume status CINV (chemotherapy-induced nausea and vomiting) Overview: --Resolved --Ativan PRN (none used) Peripheral qumyhhymzm74 Overview: --gabapentin 300mg TID with increased symptoms, bedtime dose of gabapentin increased to 600mg with improvement reported, continue DVT ghnknlqysbb00 Overview: --platelet count decreasing, d/c heparin SQ --encourage ambulation Eogiqoxg42 Overview: --ambien PRN at HS, with relief, but with vivid dreams, ambien d/c --restoril at 30mg PRN at HS with relief, continue Chronic chest pain Overview: --now resolved --since Hodgkin lymphoma diagnosis per patient Hospital discharge follow-up Overview: --Patient will need to follow up with Dr. Unger after discharge Zgalqqwfuba95 Overview: --patient taking atenolol 100mg BID at home, now BP running lower, decreased atenolol dose to 50mg BID with hypotension. --increase to 75mg BID, d/t tachycardia(HRs >110 while afebrile), HR now controlled, continue --monitor closely Electrolyte and fluid disorders not elsewhere ejmrkfgxka64 DISPOSITION AND FOLLOW-UP Overview: 32 yo female from [place], [place]. Family involved with care, at bedside. 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 will start PO pain meds today 10/27. tolerating percocet, pain relatively well controlled. Hodgkin's disease with nodular zyjgjpshh14 Overview: Oncology history (per Dr. 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 Hodgkin's disease, yhefgfkxnqn10Vaginal yludfwsd20/07/2016 Overview: --likely from thrombocytopenia. No menses in prior 8 months. 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 Premature olsyffxrp09/07/2016Postmenopausal atrophic coxcblfmc09/07/2016 Qslopxsfebw74/07/2016documented as of this encounter (statuses as of 06/15/2021) [facility]2018 History of Past illness Narrative* ProblemNoted Date Resolved DateMenorrhagia with regular cycle Overview: Added automatically from request for surgery [id number] History of pulmonary rogdbifz01Neoplastic (malignant) related kkbzerb13Hidradenitis chqpptcolqu62Vitamin D rnriglraek53HyperCKemiaElevated aldolase levelChronic pain of both kneesPain in joint, multiple sitesMyalgiaFatigue Malaise and vbmbzbh93Gastroesophageal reflux disease without uebbpatnitd26Laryngitis02/23/2015 12/26/2015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 (poly)zawzfvedvc27/10/2015 12/26/2015Papanicolaou smear of cervix with low grade squamous intraepithelial lesion (LGSIL)Pain in joint, ankle and foot09/27/2014 12/26/2015ASCUS favor hdaucuiqv24Visit for gynecologic tpyxpdkznsp22Postmenopausal HRT (hormone replacement therapy) Overview: offered Gait hpngdpdquta05Weakness of both legs Sprain of ankle, leftPCP (pneumocystis jiroveci pneumonia) Acute respiratory failure with tlefvhepe55 Overview: Increased O2 requirement overnight (2L to 5L) - bronchoscopy with BAL/TBLB tomorrow 8 AM. - NPO from midnight - hold tonight dose of lovenox. Radiation yalkkbfxjji80 Overview: 40 mg prednisone daily Immunodeficiency with predominant T-cell defect, dpuruohlyux18 Urgency of ltfadnksgtf03Urinary acdpdzkay15 Arm pain, leftBack pain without eanotkcga35/19/2014 12/26/2015Abnormal finding on mumfwpi42Elevated sed rate Hyperpigmentation of skin Overview: --resolved --bilateral breast tissue and axilla --order mycolog cream --monitor Dmyupxum94 Overview: - c diff pending Mucositis (ulcerative) due to antineoplastic jbczqag72 Overview: --improved --oxy prn --mouth care measures. Tlygww09 Overview: --improved with protonix Elevated LFTs Overview: --increased AST ALT during chemo, resolved. Excess fluid Overview: --diuresis as needed --continue to monitor volume status CINV (chemotherapy-induced nausea and vomiting) Overview: --Resolved --Ativan PRN (none used) Peripheral ivvbhrdcsv14 Overview: --gabapentin 300mg TID with increased symptoms, bedtime dose of gabapentin increased to 600mg with improvement reported, continue DVT bonkxgaklex29 Overview: --platelet count decreasing, d/c heparin SQ --encourage ambulation Lzykovlo38 Overview: --ambien PRN at HS, with relief, but with vivid dreams, ambien d/c --restoril at 30mg PRN at HS with relief, continue Chronic chest pain Overview: --now resolved --since Hodgkin lymphoma diagnosis per patient Hospital discharge follow-up Overview: --Patient will need to follow up with Dr. Unger after discharge Wlffuhpyvws75 Overview: --patient taking atenolol 100mg BID at home, now BP running lower, decreased atenolol dose to 50mg BID with hypotension. --increase to 75mg BID, d/t tachycardia(HRs >110 while afebrile), HR now controlled, continue --monitor closely Electrolyte and fluid disorders not elsewhere zwgtaryvfp08 DISPOSITION AND FOLLOW-UP Overview: 32 yo female from [place], [place]. Family involved with care, at bedside. 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 will start PO pain meds today 10/27. tolerating percocet, pain relatively well controlled. Hodgkin's disease with nodular pkhoskexa09 Overview: Oncology history (per Dr. 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 Hodgkin's disease, zlktatyjhdl05Vaginal /07/2016 Overview: --likely from thrombocytopenia. No menses in prior 8 months. 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 Premature rfyanaioa26/07/2016Postmenopausal atrophic jojvvujku96/07/2016 Ugmdkupytzf43/07/2016documented as of this encounter (statuses as of 06/30/2021) [facility]01[facility]2018 History of Past illness Narrative* ProblemNoted Date Resolved DateMenorrhagia with regular cycle Overview: Added automatically from request for surgery [id number] History of pulmonary pbqslecd50Neoplastic (malignant) related jlcoqyb03Hidradenitis gulbzugjtzx13Vitamin D erlgzexvum69/21/7819KvzkkLVrtqy36Elevated aldolase levelChronic pain of both kneesPain in joint, multiple sitesMyalgiaFatigue Malaise and pmkysys07Gastroesophageal reflux disease without rvkrivtligg21Laryngitis02/23/2015 12/26/2015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 (poly)vbgcyelpih66/10/2015 12/26/2015Papanicolaou smear of cervix with low grade squamous intraepithelial lesion (LGSIL)Pain in joint, ankle and foot09/27/2014 12/26/2015ASCUS favor vcmszpwok51Visit for gynecologic vpuvcueuxno25Postmenopausal HRT (hormone replacement therapy) Overview: offered Gait abqhikmtvbb74Weakness of both legs Sprain of ankle, leftPCP (pneumocystis jiroveci pneumonia) Acute respiratory failure with hbqpjusqt52 Overview: Increased O2 requirement overnight (2L to 5L) - bronchoscopy with BAL/TBLB tomorrow 8 AM. - NPO from midnight - hold tonight dose of lovenox. Radiation qilmgbcsagf71 Overview: 40 mg prednisone daily Immunodeficiency with predominant T-cell defect, sangpmoqcfb27 Urgency of crxihjkfwnw83Urinary cqzyyloch57 Arm pain, leftBack pain without iqkaoswmq96/19/2014 12/26/2015Abnormal finding on mrcpgqq50Elevated sed rate Hyperpigmentation of skin Overview: --resolved --bilateral breast tissue and axilla --order mycolog cream --monitor Ksrgoptd75 Overview: - c diff pending Mucositis (ulcerative) due to antineoplastic wdwlajp11 Overview: --improved --oxy prn --mouth care measures. Cgwskx01 Overview: --improved with protonix Elevated LFTs Overview: --increased AST ALT during chemo, resolved. Excess fluid epjuoi37 Overview: --diuresis as needed --continue to monitor volume status CINV (chemotherapy-induced nausea and vomiting) Overview: --Resolved --Ativan PRN (none used) Peripheral ahovldecmt89 Overview: --gabapentin 300mg TID with increased symptoms, bedtime dose of gabapentin increased to 600mg with improvement reported, continue DVT aolfiacbslg05 Overview: --platelet count decreasing, d/c heparin SQ --encourage ambulation Nkssdggj23 Overview: --ambien PRN at HS, with relief, but with vivid dreams, ambien d/c --restoril at 30mg PRN at HS with relief, continue Chronic chest pain Overview: --now resolved --since Hodgkin lymphoma diagnosis per patient Hospital discharge follow-up Overview: --Patient will need to follow up with Dr. Unger after discharge Hjfyrqxvirv85 Overview: --patient taking atenolol 100mg BID at home, now BP running lower, decreased atenolol dose to 50mg BID with hypotension. --increase to 75mg BID, d/t tachycardia(HRs >110 while afebrile), HR now controlled, continue --monitor closely Electrolyte and fluid disorders not elsewhere eqhyfxcfac95 DISPOSITION AND FOLLOW-UP Overview: 32 yo female from [place], [place]. Family involved with care, at bedside. 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 will start PO pain meds today 10/27. tolerating percocet, pain relatively well controlled. Hodgkin's disease with nodular ncssufgbb13 Overview: Oncology history (per Dr. 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 Hodgkin's disease, gmzmtiuhijh51Vaginal qyrfbmqs85/07/2016 Overview: --likely from thrombocytopenia. No menses in prior 8 months. 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 Premature ouwazpbll28/07/2016Postmenopausal atrophic stlbcrxmy22/07/2016 Jerhijjhhxz33/07/2016documented as of this encounter (statuses as of 07/05/2021) [facility]01[facility]2018 History of Past illness Narrative* ProblemNoted Date Resolved DateMenorrhagia with regular cycle Overview: Added automatically from request for surgery [id number] History of pulmonary gvskqugz29Neoplastic (malignant) related tgmqxsp40Hidradenitis zuodjxibwby61Vitamin D gzcvnrflth58HyperCKemiaElevated aldolase levelChronic pain of both kneesPain in joint, multiple sitesMyalgiaFatigue Malaise and npelkhv54Gastroesophageal reflux disease without zviajqzfuyt49Laryngitis02/23/2015 12/26/2015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 (poly)wyfpnuhxvp61/10/2015 12/26/2015Papanicolaou smear of cervix with low grade squamous intraepithelial lesion (LGSIL)Pain in joint, ankle and foot09/27/2014 12/26/2015ASCUS favor lpvkwrfdh38Visit for gynecologic tqlsfefmghq95Postmenopausal HRT (hormone replacement therapy) Overview: offered Gait axahbczgodi96Weakness of both legs07/22/ Sprain of ankle, left06/29/PCP (pneumocystis jiroveci pneumonia) Acute respiratory failure with ebllnokkq04 Overview: Increased O2 requirement overnight (2L to 5L) - bronchoscopy with BAL/TBLB tomorrow 8 AM. - NPO from midnight - hold tonight dose of lovenox. Radiation kwjuhguohbx80 Overview: 40 mg prednisone daily Immunodeficiency with predominant T-cell defect, ccmhhwcasqw62 Urgency of qlrmvweylsm84Urinary fyfcrlulk39 Arm pain, leftBack pain without cwaisksmv71/19/2014 12/26/2015Abnormal finding on qpomscf90Elevated sed rate Hyperpigmentation of skin Overview: --resolved --bilateral breast tissue and axilla --order mycolog cream --monitor Kogturuj83 Overview: - c diff pending Mucositis (ulcerative) due to antineoplastic pnspbei25 Overview: --improved --oxy prn --mouth care measures. Oilxur23 Overview: --improved with protonix Elevated LFTs Overview: --increased AST ALT during chemo, resolved. Excess fluid Overview: --diuresis as needed --continue to monitor volume status CINV (chemotherapy-induced nausea and vomiting) Overview: --Resolved --Ativan PRN (none used) Peripheral nzjxngclie25 Overview: --gabapentin 300mg TID with increased symptoms, bedtime dose of gabapentin increased to 600mg with improvement reported, continue DVT tocnjzmhctp54 Overview: --platelet count decreasing, d/c heparin SQ --encourage ambulation Wlgfqqre65 Overview: --ambien PRN at HS, with relief, but with vivid dreams, ambien d/c --restoril at 30mg PRN at HS with relief, continue Chronic chest pain Overview: --now resolved --since Hodgkin lymphoma diagnosis per patient Hospital discharge follow-up Overview: --Patient will need to follow up with Dr. Unger after discharge Gzbghncsgng26 Overview: --patient taking atenolol 100mg BID at home, now BP running lower, decreased atenolol dose to 50mg BID with hypotension. --increase to 75mg BID, d/t tachycardia(HRs >110 while afebrile), HR now controlled, continue --monitor closely Electrolyte and fluid disorders not elsewhere vfavcpwqvf45 DISPOSITION AND FOLLOW-UP Overview: 32 yo female from [place], [place]. Family involved with care, at bedside. 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 will start PO pain meds today 10/27. tolerating percocet, pain relatively well controlled. Hodgkin's disease with nodular dsniqhhvr86 Overview: Oncology history (per Dr. 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 Hodgkin's disease, yuuhvqvcwdc23Vaginal wuanbbkf27/07/2016 Overview: --likely from thrombocytopenia. No menses in prior 8 months. 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 Premature nhgpqztke01/07/2016Postmenopausal atrophic kjxukjoge70/07/2016 Ezjtjhvnpbj30/07/2016documented as of this encounter (statuses as of 07/06/2021) [facility]01[facility]2018 History of Past illness Narrative* ProblemNoted Date Resolved DateMenorrhagia with regular cycle Overview: Added automatically from request for surgery [id number] History of pulmonary nsoeexwi68Neoplastic (malignant) related fcrustp00Hidradenitis oabixnprrfk05Vitamin D blmmnuhwpu83HyperCKemiaElevated aldolase levelChronic pain of both kneesPain in joint, multiple sitesMyalgiaFatigue Malaise and axkpsok33Gastroesophageal reflux disease without skokvlhhzxc66Laryngitis02/23/2015 12/26/2015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 (poly)logbavjnjt56/10/2015 12/26/2015Papanicolaou smear of cervix with low grade squamous intraepithelial lesion (LGSIL)Pain in joint, ankle and foot09/27/2014 12/26/2015ASCUS favor vfpzicyzu77Visit for gynecologic ufbwhmmzgps60Postmenopausal HRT (hormone replacement therapy) Overview: offered Gait yaeniqdgxmc76Weakness of both legs Sprain of ankle, leftPCP (pneumocystis jiroveci pneumonia) Acute respiratory failure with alrtlniix96 Overview: Increased O2 requirement overnight (2L to 5L) - bronchoscopy with BAL/TBLB tomorrow 8 AM. - NPO from midnight - hold tonight dose of lovenox. Radiation otjfkjpjcqv75 Overview: 40 mg prednisone daily Immunodeficiency with predominant T-cell defect, gjvplinzjfu11 Urgency of jyhzumyuwpo24Urinary ljrikzaeg01 Arm pain, leftBack pain without dsipjbsyv51/19/2014 12/26/2015Abnormal finding on bqcosus66Elevated sed rate Hyperpigmentation of skin Overview: --resolved --bilateral breast tissue and axilla --order mycolog cream --monitor Hiuguydy44 Overview: - c diff pending Mucositis (ulcerative) due to antineoplastic zbqazvu92 Overview: --improved --oxy prn --mouth care measures. Aqnnks37 Overview: --improved with protonix Elevated LFTs Overview: --increased AST ALT during chemo, resolved. Excess fluid qypmay21 Overview: --diuresis as needed --continue to monitor volume status CINV (chemotherapy-induced nausea and vomiting) Overview: --Resolved --Ativan PRN (none used) Peripheral yfcjnpbpgq07 Overview: --gabapentin 300mg TID with increased symptoms, bedtime dose of gabapentin increased to 600mg with improvement reported, continue DVT otbonjyomer42 Overview: --platelet count decreasing, d/c heparin SQ --encourage ambulation Sqksnusc03 Overview: --ambien PRN at HS, with relief, but with vivid dreams, ambien d/c --restoril at 30mg PRN at HS with relief, continue Chronic chest pain Overview: --now resolved --since Hodgkin lymphoma diagnosis per patient Hospital discharge follow-up Overview: --Patient will need to follow up with Dr. Unger after discharge Bskluzcbdcb47 Overview: --patient taking atenolol 100mg BID at home, now BP running lower, decreased atenolol dose to 50mg BID with hypotension. --increase to 75mg BID, d/t tachycardia(HRs >110 while afebrile), HR now controlled, continue --monitor closely Electrolyte and fluid disorders not elsewhere DISPOSITION AND FOLLOW-UP Overview: 32 yo female from [place]. Family involved with care, at bedside. 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 will start PO pain meds today 10/27. tolerating percocet, pain relatively well controlled. Hodgkin's disease with nodular ielrcettk82 Overview: Oncology history (per Dr. 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 Hodgkin's disease, gtmsxyyoklu15Vaginal cmkegyhu84/07/2016 Overview: --likely from thrombocytopenia. No menses in prior 8 months. 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 Premature aenzavrff74/07/2016Postmenopausal atrophic ryfbzubso20/07/2016 Dzzgytrysao70/07/2016documented as of this encounter (statuses as of 2021) [facility] History of Past illness Narrative* ProblemNoted Date Resolved DateMenorrhagia with regular cycle Overview: Added automatically from request for surgery [id number] History of pulmonary orextzna91Neoplastic (malignant) related uryxpip94Hidradenitis suoaisksoyg26Vitamin D kdwymfxliv75HyperCKemiaElevated aldolase levelChronic pain of both kneesPain in joint, multiple sitesMyalgiaFatigue Malaise and jzftrto50Gastroesophageal reflux disease without qvekkkscflg77Laryngitis02/23/2015 12/26/2015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 (poly)yvkfiretub64/10/2015 12/26/2015Papanicolaou smear of cervix with low grade squamous intraepithelial lesion (LGSIL)Pain in joint, ankle and foot09/27/2014 12/26/2015ASCUS favor fpmbzcfix70Visit for gynecologic dftanbtvuyj89Postmenopausal HRT (hormone replacement therapy) Overview: offered Gait kzinzwwxaoy60Weakness of both legs Sprain of ankle, leftPCP (pneumocystis jiroveci pneumonia) Acute respiratory failure with Overview: Increased O2 requirement overnight (2L to 5L) - bronchoscopy with BAL/TBLB tomorrow 8 AM. - NPO from midnight - hold tonight dose of lovenox. Radiation owytgwfitfc68 Overview: 40 mg prednisone daily Immunodeficiency with predominant T-cell defect, cbxhasfsfay54 Urgency of ajqvizveetk10Urinary exgrmnvbd65 Arm pain, leftBack pain without zgrumieow21/19/2014 12/26/2015Abnormal finding on mdhkydl07Elevated sed rate Hyperpigmentation of skin Overview: --resolved --bilateral breast tissue and axilla --order mycolog cream --monitor Lsxmmdmy83 Overview: - c diff pending Mucositis (ulcerative) due to antineoplastic Overview: --improved --oxy prn --mouth care measures. Vtulxd59 Overview: --improved with protonix Elevated LFTs Overview: --increased AST ALT during chemo, resolved. Excess fluid gnujjt09 Overview: --diuresis as needed --continue to monitor volume status CINV (chemotherapy-induced nausea and vomiting) Overview: --Resolved --Ativan PRN (none used) Peripheral fsylumpflc19 Overview: --gabapentin 300mg TID with increased symptoms, bedtime dose of gabapentin increased to 600mg with improvement reported, continue DVT jvumegpzqpp63 Overview: --platelet count decreasing, d/c heparin SQ --encourage ambulation Zcxgqagk75 Overview: --ambien PRN at HS, with relief, but with vivid dreams, ambien d/c --restoril at 30mg PRN at HS with relief, continue Chronic chest pain Overview: --now resolved --since Hodgkin lymphoma diagnosis per patient Hospital discharge follow-up Overview: --Patient will need to follow up with Dr. Unger after discharge Cmtzcmmihel97 Overview: --patient taking atenolol 100mg BID at home, now BP running lower, decreased atenolol dose to 50mg BID with hypotension. --increase to 75mg BID, d/t tachycardia(HRs >110 while afebrile), HR now controlled, continue --monitor closely Electrolyte and fluid disorders not elsewhere nachqlhkvp62 DISPOSITION AND FOLLOW-UP Overview: 32 yo female from [place]. Family involved with care, at bedside. 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 will start PO pain meds today 10/27. tolerating percocet, pain relatively well controlled. Hodgkin's disease with nodular Overview: Oncology history (per Dr. 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 Hodgkin's disease, ekozcnxqhmu87Vaginal zgdrryqz79/07/2016 Overview: --likely from thrombocytopenia. No menses in prior 8 months. 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 Premature ilgrwvzyh72/07/2016Postmenopausal atrophic xivqqwkfh57/07/2016 Kqvwwvfpyui30/07/2016documented as of this encounter (statuses as of 2021) [facility] History of Past illness Narrative* ProblemNoted Date Resolved DateMenorrhagia with regular cycle Overview: Added automatically from request for surgery [id number] History of pulmonary xbcodjfg52Neoplastic (malignant) related iqwylla26Hidradenitis pzhzddcnywx77Vitamin D tsrknvtkif78HyperCKemiaElevated aldolase levelChronic pain of both kneesPain in joint, multiple sitesMyalgiaFatigue Malaise and wmhwujv11Gastroesophageal reflux disease without ejbapvchenr87Laryngitis02/23/2015 12/26/2015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 (poly)mixtzylnip18/10/2015 12/26/2015Papanicolaou smear of cervix with low grade squamous intraepithelial lesion (LGSIL)Pain in joint, ankle and foot09/27/2014 12/26/2015ASCUS favor xgfmpyjff94Visit for gynecologic alvwccgyfen77Postmenopausal HRT (hormone replacement therapy) Overview: offered Gait tnpxiegreyi47Weakness of both legs Sprain of ankle, leftPCP (pneumocystis jiroveci pneumonia) Acute respiratory failure with llaakzhbv41 Overview: Increased O2 requirement overnight (2L to 5L) - bronchoscopy with BAL/TBLB tomorrow 8 AM. - NPO from midnight - hold tonight dose of lovenox. Radiation Overview: 40 mg prednisone daily Immunodeficiency with predominant T-cell defect, lgevrhzdzrk45 Urgency of hmbsxyahzfz18Urinary yiribnnwi54 Arm pain, leftBack pain without fzugzgnup09/19/2014 12/26/2015Abnormal finding on nvhntlg33Elevated sed rate Hyperpigmentation of skin Overview: --resolved --bilateral breast tissue and axilla --order mycolog cream --monitor Csssrgwu55 Overview: - c diff pending Mucositis (ulcerative) due to antineoplastic rxvgeht91 Overview: --improved --oxy prn --mouth care measures. Vxfqbk48 Overview: --improved with protonix Elevated LFTs Overview: --increased AST ALT during chemo, resolved. Excess fluid ybtprk23 Overview: --diuresis as needed --continue to monitor volume status CINV (chemotherapy-induced nausea and vomiting) Overview: --Resolved --Ativan PRN (none used) Peripheral foievhxynt81 Overview: --gabapentin 300mg TID with increased symptoms, bedtime dose of gabapentin increased to 600mg with improvement reported, continue DVT wbpmbrxvtut23 Overview: --platelet count decreasing, d/c heparin SQ --encourage ambulation Qhjvpzwb03 Overview: --ambien PRN at HS, with relief, but with vivid dreams, ambien d/c --restoril at 30mg PRN at HS with relief, continue Chronic chest pain Overview: --now resolved --since Hodgkin lymphoma diagnosis per patient Hospital discharge follow-up Overview: --Patient will need to follow up with Dr. Unger after discharge Dqedlxdhubr28 Overview: --patient taking atenolol 100mg BID at home, now BP running lower, decreased atenolol dose to 50mg BID with hypotension. --increase to 75mg BID, d/t tachycardia(HRs >110 while afebrile), HR now controlled, continue --monitor closely Electrolyte and fluid disorders not elsewhere DISPOSITION AND FOLLOW-UP Overview: 32 yo female from [place], [place]. Family involved with care, at bedside. 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 will start PO pain meds today 10/27. tolerating percocet, pain relatively well controlled. Hodgkin's disease with nodular bahvjetkq50 Overview: Oncology history (per Dr. 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 Hodgkin's disease, ohjluiyhquc00Vaginal elxifcbw57/07/2016 Overview: --likely from thrombocytopenia. No menses in prior 8 months. 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 Premature aeghfxoop93/07/2016Postmenopausal atrophic /07/2016 Guspxsadyyc87/07/2016documented as of this encounter (statuses as of 07/26/2021) [facility] History of Past illness Narrative* ProblemNoted Date Resolved DateMenorrhagia with regular cycle Overview: Added automatically from request for surgery [id number] History of pulmonary rwpyfoix01Neoplastic (malignant) related qtwmfyw04Hidradenitis hhbvovchfvu30Vitamin D fuzzfdlnxe93HyperCKemiaElevated aldolase levelChronic pain of both kneesPain in joint, multiple sitesMyalgiaFatigue Malaise and ohuzeca24Gastroesophageal reflux disease without dztkneuctni41Laryngitis02/23/2015 12/26/2015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 (poly)peasmqblmv37/10/2015 12/26/2015Papanicolaou smear of cervix with low grade squamous intraepithelial lesion (LGSIL)Pain in joint, ankle and foot09/27/2014 12/26/2015ASCUS favor cgqaalsbp83Visit for gynecologic relpulgcauo79Postmenopausal HRT (hormone replacement therapy) Overview: offered Gait jnimacmqyah72Weakness of both legs Sprain of ankle, leftPCP (pneumocystis jiroveci pneumonia) Acute respiratory failure with gjebivobh66 Overview: Increased O2 requirement overnight (2L to 5L) - bronchoscopy with BAL/TBLB tomorrow 8 AM. - NPO from midnight - hold tonight dose of lovenox. Radiation Overview: 40 mg prednisone daily Immunodeficiency with predominant T-cell defect, cecnlfhitvk37 Urgency of ksttqdfnbzo03Urinary ermjscgrs63 Arm pain, leftBack pain without mbonccxio74/19/2014 12/26/2015Abnormal finding on rcgqggh47Elevated sed rate Hyperpigmentation of skin Overview: --resolved --bilateral breast tissue and axilla --order mycolog cream --monitor Wtkpzpov06 Overview: - c diff pending Mucositis (ulcerative) due to antineoplastic usfaxnv11 Overview: --improved --oxy prn --mouth care measures. Hnzpan72 Overview: --improved with protonix Elevated LFTs Overview: --increased AST ALT during chemo, resolved. Excess fluid zwkiyc10 Overview: --diuresis as needed --continue to monitor volume status CINV (chemotherapy-induced nausea and vomiting) Overview: --Resolved --Ativan PRN (none used) Peripheral ikpdaennuy17 Overview: --gabapentin 300mg TID with increased symptoms, bedtime dose of gabapentin increased to 600mg with improvement reported, continue DVT tnoiwpazczp23 Overview: --platelet count decreasing, d/c heparin SQ --encourage ambulation Rbfyzpmy64 Overview: --ambien PRN at HS, with relief, but with vivid dreams, ambien d/c --restoril at 30mg PRN at HS with relief, continue Chronic chest pain Overview: --now resolved --since Hodgkin lymphoma diagnosis per patient Hospital discharge follow-up Overview: --Patient will need to follow up with Dr. Unger after discharge Jjjqnhchoyv46 Overview: --patient taking atenolol 100mg BID at home, now BP running lower, decreased atenolol dose to 50mg BID with hypotension. --increase to 75mg BID, d/t tachycardia(HRs >110 while afebrile), HR now controlled, continue --monitor closely Electrolyte and fluid disorders not elsewhere gnhdtkwzuk67 DISPOSITION AND FOLLOW-UP Overview: 32 yo female from [place], [place]. Family involved with care, at bedside. 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 will start PO pain meds today 10/27. tolerating percocet, pain relatively well controlled. Hodgkin's disease with nodular vjloyujjd68 Overview: Oncology history (per Dr. 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 Hodgkin's disease, zlldrdeostl20Vaginal recdkgrc50/07/2016 Overview: --likely from thrombocytopenia. No menses in prior 8 months. 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 Premature ttocmjiiu16/07/2016Postmenopausal atrophic xifsoaeee41/07/2016 Wtbacsfpugl81/07/2016documented as of this encounter (statuses as of 07/28/2021) [facility]2018 History of Past illness Narrative* ProblemNoted Date Resolved DateMenorrhagia with regular cycle Overview: Added automatically from request for surgery [id number] History of pulmonary jvelnifc70Neoplastic (malignant) related yyewrgz94Hidradenitis alsdyftncxw87Vitamin D sitvoaadqm85HyperCKemiaElevated aldolase levelChronic pain of both kneesPain in joint, multiple sitesMyalgiaFatigue Malaise and esbpfpt48Gastroesophageal reflux disease without hzyqugpqxbj06Laryngitis02/23/2015 12/26/2015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 (poly)sxdjtklyyf16/10/2015 12/26/2015Papanicolaou smear of cervix with low grade squamous intraepithelial lesion (LGSIL)Pain in joint, ankle and foot09/27/2014 12/26/2015ASCUS favor zzuhbyopn74Visit for gynecologic hrmbcyeqlkf93Postmenopausal HRT (hormone replacement therapy) Overview: offered Gait tfvfumbuuut58Weakness of both legs Sprain of ankle, leftPCP (pneumocystis jiroveci pneumonia) Acute respiratory failure with wiynzoknc98 Overview: Increased O2 requirement overnight (2L to 5L) - bronchoscopy with BAL/TBLB tomorrow 8 AM. - NPO from midnight - hold tonight dose of lovenox. Radiation ubsiepfhupi65 Overview: 40 mg prednisone daily Immunodeficiency with predominant T-cell defect, rtjlrnsbiyu84 Urgency of aththumnbzd64Urinary totbsavza72 Arm pain, leftBack pain without /19/2014 12/26/2015Abnormal finding on mepxres75Elevated sed rate Hyperpigmentation of skin Overview: --resolved --bilateral breast tissue and axilla --order mycolog cream --monitor Nkmxwmvm51 Overview: - c diff pending Mucositis (ulcerative) due to antineoplastic adzyire77 Overview: --improved --oxy prn --mouth care measures. Osyxsq29 Overview: --improved with protonix Elevated LFTs Overview: --increased AST ALT during chemo, resolved. Excess fluid ilxeec86 Overview: --diuresis as needed --continue to monitor volume status CINV (chemotherapy-induced nausea and vomiting) Overview: --Resolved --Ativan PRN (none used) Peripheral tebkertrlg92 Overview: --gabapentin 300mg TID with increased symptoms, bedtime dose of gabapentin increased to 600mg with improvement reported, continue DVT qsvcdfyvzck82 Overview: --platelet count decreasing, d/c heparin SQ --encourage ambulation Nzwpoupg85 Overview: --ambien PRN at HS, with relief, but with vivid dreams, ambien d/c --restoril at 30mg PRN at HS with relief, continue Chronic chest pain Overview: --now resolved --since Hodgkin lymphoma diagnosis per patient Hospital discharge follow-up Overview: --Patient will need to follow up with Dr. Unger after discharge Irckkqyclrh97 Overview: --patient taking atenolol 100mg BID at home, now BP running lower, decreased atenolol dose to 50mg BID with hypotension. --increase to 75mg BID, d/t tachycardia(HRs >110 while afebrile), HR now controlled, continue --monitor closely Electrolyte and fluid disorders not elsewhere qsobdxcikg71 DISPOSITION AND FOLLOW-UP Overview: 32 yo female from [place], [place]. Family involved with care, at bedside. 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 will start PO pain meds today 10/27. tolerating percocet, pain relatively well controlled. Hodgkin's disease with nodular cudasblns35 Overview: Oncology history (per Dr. 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 Hodgkin's disease, wibdipbcypk89Vaginal xekmdsdr71/07/2016 Overview: --likely from thrombocytopenia. No menses in prior 8 months. 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 Premature dkstoufxv38/07/2016Postmenopausal atrophic yqxxacssz34/07/2016 Kdzhsypyahi56/07/2016documented as of this encounter (statuses as of 07/31/2021) [facility] History of Past illness Narrative* ProblemNoted Date Resolved DateMenorrhagia with regular cycle Overview: Added automatically from request for surgery [id number] History of pulmonary ehfhuxqt13Neoplastic (malignant) related ucnukpl04Hidradenitis ptctlkeddwe93Vitamin D ddazwctrvn20HyperCKemiaElevated aldolase levelChronic pain of both kneesPain in joint, multiple sitesMyalgiaFatigue Malaise and izkucql42Gastroesophageal reflux disease without bgfpoqqdgrp98Laryngitis02/23/2015 12/26/2015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 (poly)hnocanpxot70/10/2015 12/26/2015Papanicolaou smear of cervix with low grade squamous intraepithelial lesion (LGSIL)Pain in joint, ankle and foot09/27/2014 12/26/2015ASCUS favor evlfqxidn94Visit for gynecologic gvdkqdblooo31Postmenopausal HRT (hormone replacement therapy) Overview: offered Gait zbtitntgtcn07Weakness of both legs Sprain of ankle, leftPCP (pneumocystis jiroveci pneumonia) Acute respiratory failure with zhxyhobfx80 Overview: Increased O2 requirement overnight (2L to 5L) - bronchoscopy with BAL/TBLB tomorrow 8 AM. - NPO from midnight - hold tonight dose of lovenox. Radiation elbubmrkfye88 Overview: 40 mg prednisone daily Immunodeficiency with predominant T-cell defect, mnjgflwwysn57 Urgency of zusdhxudqpm38Urinary rhjporhsh82 Arm pain, leftBack pain without bqgliqiwv42/19/2014 12/26/2015Abnormal finding on jgbqjst11Elevated sed rate Hyperpigmentation of skin Overview: --resolved --bilateral breast tissue and axilla --order mycolog cream --monitor Blcefpta86 Overview: - c diff pending Mucositis (ulcerative) due to antineoplastic Overview: --improved --oxy prn --mouth care measures. Jmnzmh61 Overview: --improved with protonix Elevated LFTs Overview: --increased AST ALT during chemo, resolved. Excess fluid pohcuy00 Overview: --diuresis as needed --continue to monitor volume status CINV (chemotherapy-induced nausea and vomiting) Overview: --Resolved --Ativan PRN (none used) Peripheral tclorukhak14 Overview: --gabapentin 300mg TID with increased symptoms, bedtime dose of gabapentin increased to 600mg with improvement reported, continue DVT Overview: --platelet count decreasing, d/c heparin SQ --encourage ambulation Aoshapyd13 Overview: --ambien PRN at HS, with relief, but with vivid dreams, ambien d/c --restoril at 30mg PRN at HS with relief, continue Chronic chest pain Overview: --now resolved --since Hodgkin lymphoma diagnosis per patient Hospital discharge follow-up Overview: --Patient will need to follow up with Dr. Unger after discharge Smunrsctbnw82 Overview: --patient taking atenolol 100mg BID at home, now BP running lower, decreased atenolol dose to 50mg BID with hypotension. --increase to 75mg BID, d/t tachycardia(HRs >110 while afebrile), HR now controlled, continue --monitor closely Electrolyte and fluid disorders not elsewhere usueeuolhz94 DISPOSITION AND FOLLOW-UP Overview: 32 yo female from [place], [place]. Family involved with care, at bedside. 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 will start PO pain meds today 10/27. tolerating percocet, pain relatively well controlled. Hodgkin's disease with nodular qlzkptjyo64 Overview: Oncology history (per Dr. 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 Hodgkin's disease, fbpvpddrhyd70Vaginal tpwxyymx80/07/2016 Overview: --likely from thrombocytopenia. No menses in prior 8 months. 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 Premature jflbopmqp96/07/2016Postmenopausal atrophic lweffhoop93/07/2016 Llarjculdck93/07/2016documented as of this encounter (statuses as of 07/31/2021) [facility] History of Past illness Narrative* ProblemNoted Date Resolved DateMenorrhagia with regular cycle Overview: Added automatically from request for surgery [id number] History of pulmonary stsezsnl38Neoplastic (malignant) related sjnqfqr74Hidradenitis hbingtdvihj46Vitamin D qfwlplhxyc70/21/3836MxmylZCflep58Elevated aldolase levelChronic pain of both kneesPain in joint, multiple sitesMyalgiaFatigue Malaise and qinzpax04Gastroesophageal reflux disease without gvkdzlflnfm66Laryngitis02/23/2015 12/26/2015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 (poly)fgcqxolhsf11/10/2015 12/26/2015Papanicolaou smear of cervix with low grade squamous intraepithelial lesion (LGSIL)Pain in joint, ankle and foot09/27/2014 12/26/2015ASCUS favor fheqyjxmr86Visit for gynecologic aizndqgbzrk54Postmenopausal HRT (hormone replacement therapy) Overview: offered Gait puwomtyetve73Weakness of both legs Sprain of ankle, leftPCP (pneumocystis jiroveci pneumonia) Acute respiratory failure with iqtzupbkn60 Overview: Increased O2 requirement overnight (2L to 5L) - bronchoscopy with BAL/TBLB tomorrow 8 AM. - NPO from midnight - hold tonight dose of lovenox. Radiation dauhmxyutxw54 Overview: 40 mg prednisone daily Immunodeficiency with predominant T-cell defect, vnpovvtijyb50 Urgency of wifwalcukdb57Urinary upvritvss27 Arm pain, leftBack pain without dtgfuinet29/19/2014 12/26/2015Abnormal finding on nyfttti09Elevated sed rate Hyperpigmentation of skin Overview: --resolved --bilateral breast tissue and axilla --order mycolog cream --monitor Hawxncgx35 Overview: - c diff pending Mucositis (ulcerative) due to antineoplastic Overview: --improved --oxy prn --mouth care measures. Umgwuh71 Overview: --improved with protonix Elevated LFTs Overview: --increased AST ALT during chemo, resolved. Excess fluid palqip13 Overview: --diuresis as needed --continue to monitor volume status CINV (chemotherapy-induced nausea and vomiting) Overview: --Resolved --Ativan PRN (none used) Peripheral rmhaxsncut50 Overview: --gabapentin 300mg TID with increased symptoms, bedtime dose of gabapentin increased to 600mg with improvement reported, continue DVT vlvnxosbqjh45 Overview: --platelet count decreasing, d/c heparin SQ --encourage ambulation Ttppyibv91 Overview: --ambien PRN at HS, with relief, but with vivid dreams, ambien d/c --restoril at 30mg PRN at HS with relief, continue Chronic chest pain Overview: --now resolved --since Hodgkin lymphoma diagnosis per patient Hospital discharge follow-up Overview: --Patient will need to follow up with Dr. Unger after discharge Dycswlygepa23 Overview: --patient taking atenolol 100mg BID at home, now BP running lower, decreased atenolol dose to 50mg BID with hypotension. --increase to 75mg BID, d/t tachycardia(HRs >110 while afebrile), HR now controlled, continue --monitor closely Electrolyte and fluid disorders not elsewhere tkfacrpzfw78 DISPOSITION AND FOLLOW-UP Overview: 32 yo female from [place], [place]. Family involved with care, at bedside. 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 will start PO pain meds today 10/27. tolerating percocet, pain relatively well controlled. Hodgkin's disease with nodular yzjtqvygf89 Overview: Oncology history (per Dr. 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 Hodgkin's disease, glwctwkmogq19Vaginal orcjbiwd57/07/2016 Overview: --likely from thrombocytopenia. No menses in prior 8 months. 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 Premature shwryihgs13/07/2016Postmenopausal atrophic /07/2016 Iyxlyuvzqfl66/07/2016documented as of this encounter (statuses as of 08/03/2021) [facility] History of Past illness Narrative* ProblemNoted Date Resolved DateMenorrhagia with regular cycle Overview: Added automatically from request for surgery [id number] History of pulmonary gsquvmhk47Neoplastic (malignant) related ftocmbl44Hidradenitis bzxfoppnfwa42Vitamin D euzgnzglka58HyperCKemiaElevated aldolase levelChronic pain of both kneesPain in joint, multiple sitesMyalgiaFatigue Malaise and udygmse37Gastroesophageal reflux disease without iohghkathxk61Laryngitis02/23/2015 12/26/2015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 (poly)/10/2015 12/26/2015Papanicolaou smear of cervix with low grade squamous intraepithelial lesion (LGSIL)Pain in joint, ankle and foot09/27/2014 12/26/2015ASCUS favor tlypznqct65Visit for gynecologic rruesbzmicw19Postmenopausal HRT (hormone replacement therapy) Overview: offered Gait pajmliqrmsj54Weakness of both legs Sprain of ankle, leftPCP (pneumocystis jiroveci pneumonia) Acute respiratory failure with Overview: Increased O2 requirement overnight (2L to 5L) - bronchoscopy with BAL/TBLB tomorrow 8 AM. - NPO from midnight - hold tonight dose of lovenox. Radiation uqwtzxiqqfx13 Overview: 40 mg prednisone daily Immunodeficiency with predominant T-cell defect, zzaofakzkix60 Urgency of rosaikdduce87Urinary woqujkazi49 Arm pain, leftBack pain without nqtvtjewi65/19/2014 12/26/2015Abnormal finding on ofcyyud89Elevated sed rate Hyperpigmentation of skin Overview: --resolved --bilateral breast tissue and axilla --order mycolog cream --monitor Cdzwozzt46 Overview: - c diff pending Mucositis (ulcerative) due to antineoplastic aeigyou39 Overview: --improved --oxy prn --mouth care measures. Lwrrtw96 Overview: --improved with protonix Elevated LFTs Overview: --increased AST ALT during chemo, resolved. Excess fluid Overview: --diuresis as needed --continue to monitor volume status CINV (chemotherapy-induced nausea and vomiting) Overview: --Resolved --Ativan PRN (none used) Peripheral dhzinsvbxj54 Overview: --gabapentin 300mg TID with increased symptoms, bedtime dose of gabapentin increased to 600mg with improvement reported, continue DVT spcyrpdwajc66 Overview: --platelet count decreasing, d/c heparin SQ --encourage ambulation Ivtofyvk71 Overview: --ambien PRN at HS, with relief, but with vivid dreams, ambien d/c --restoril at 30mg PRN at HS with relief, continue Chronic chest pain Overview: --now resolved --since Hodgkin lymphoma diagnosis per patient Hospital discharge follow-up Overview: --Patient will need to follow up with Dr. Unger after discharge Gfhckcwywnj18 Overview: --patient taking atenolol 100mg BID at home, now BP running lower, decreased atenolol dose to 50mg BID with hypotension. --increase to 75mg BID, d/t tachycardia(HRs >110 while afebrile), HR now controlled, continue --monitor closely Electrolyte and fluid disorders not elsewhere yxmmsvitqo82 DISPOSITION AND FOLLOW-UP Overview: 32 yo female from [place]. Family involved with care, at bedside. 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 will start PO pain meds today 10/27. tolerating percocet, pain relatively well controlled. Hodgkin's disease with nodular zteramfab77 Overview: Oncology history (per Dr. 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 Hodgkin's disease, yzlswbvxigx47Vaginal zumlxhpz64/07/2016 Overview: --likely from thrombocytopenia. No menses in prior 8 months. 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 Premature xyevhbday81/07/2016Postmenopausal atrophic zlhptamjw51/07/2016 Vlfmyxgqhri69/07/2016documented as of this encounter (statuses as of 08/15/2021) [facility]-26[facility]2018 History of Past illness Narrative* ProblemNoted Date Resolved DateMenorrhagia with regular cycle Overview: Added automatically from request for surgery [id number] History of pulmonary vgisszpl03Neoplastic (malignant) related pudqiai40Hidradenitis oizfcjzvrcp07Vitamin D wqsiqomyyh95HyperCKemiaElevated aldolase levelChronic pain of both kneesPain in joint, multiple sitesMyalgiaFatigue Malaise and aylynzj21Gastroesophageal reflux disease without ylxaosgsvmy75Laryngitis02/23/2015 12/26/2015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 (poly)/10/2015 12/26/2015Papanicolaou smear of cervix with low grade squamous intraepithelial lesion (LGSIL)Pain in joint, ankle and foot09/27/2014 12/26/2015ASCUS favor xrypipgyb62Visit for gynecologic mipzaozextl35Postmenopausal HRT (hormone replacement therapy) Overview: offered Gait kcpgwwpypzd98Weakness of both legs Sprain of ankle, leftPCP (pneumocystis jiroveci pneumonia) Acute respiratory failure with jzhmnboxt68 Overview: Increased O2 requirement overnight (2L to 5L) - bronchoscopy with BAL/TBLB tomorrow 8 AM. - NPO from midnight - hold tonight dose of lovenox. Radiation iwfzlwiobmk80 Overview: 40 mg prednisone daily Immunodeficiency with predominant T-cell defect, dmxjbcuqhcx30 Urgency of pefrddeijcd76Urinary sfouivxlh42 Arm pain, leftBack pain without tagalwnue75/19/2014 12/26/2015Abnormal finding on vesfkvg08Elevated sed rate Hyperpigmentation of skin Overview: --resolved --bilateral breast tissue and axilla --order mycolog cream --monitor Owrgsera84 Overview: - c diff pending Mucositis (ulcerative) due to antineoplastic yevdffb43 Overview: --improved --oxy prn --mouth care measures. Sfhzku33 Overview: --improved with protonix Elevated LFTs Overview: --increased AST ALT during chemo, resolved. Excess fluid Overview: --diuresis as needed --continue to monitor volume status CINV (chemotherapy-induced nausea and vomiting) Overview: --Resolved --Ativan PRN (none used) Peripheral pgvacyowsc91 Overview: --gabapentin 300mg TID with increased symptoms, bedtime dose of gabapentin increased to 600mg with improvement reported, continue DVT xmkoaiienqw38 Overview: --platelet count decreasing, d/c heparin SQ --encourage ambulation Mntxysbl71 Overview: --ambien PRN at HS, with relief, but with vivid dreams, ambien d/c --restoril at 30mg PRN at HS with relief, continue Chronic chest pain Overview: --now resolved --since Hodgkin lymphoma diagnosis per patient Hospital discharge follow-up Overview: --Patient will need to follow up with Dr. Unger after discharge Vtffexatgef27 Overview: --patient taking atenolol 100mg BID at home, now BP running lower, decreased atenolol dose to 50mg BID with hypotension. --increase to 75mg BID, d/t tachycardia(HRs >110 while afebrile), HR now controlled, continue --monitor closely Electrolyte and fluid disorders not elsewhere yvldqjvqnh21 DISPOSITION AND FOLLOW-UP Overview: 32 yo female from [place], [place]. Family involved with care, at bedside. 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 will start PO pain meds today 10/27. tolerating percocet, pain relatively well controlled. Hodgkin's disease with nodular tquangfwy82 Overview: Oncology history (per Dr. 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 Hodgkin's disease, icwhabuofxo00Vaginal maspawow71/07/2016 Overview: --likely from thrombocytopenia. No menses in prior 8 months. 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 Premature yjdzefcft14/07/2016Postmenopausal atrophic odldfbeoi45/07/2016 Rhujdihjdlj03/07/2016documented as of this encounter (statuses as of 08/16/2021) [facility]2018 History of Past illness Narrative* ProblemNoted Date Resolved DateMenorrhagia with regular cycle Overview: Added automatically from request for surgery [id number] History of pulmonary tqfxtyys90Neoplastic (malignant) related bewwjzq89Hidradenitis vyilevntamn31Vitamin D jnhfirnvjc85HyperCKemiaElevated aldolase levelChronic pain of both kneesPain in joint, multiple sitesMyalgiaFatigue Malaise and hyrzvmc67Gastroesophageal reflux disease without hakthxxlcqw84Laryngitis02/23/2015 12/26/2015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 (poly)qqlenbnbmx37/10/2015 12/26/2015Papanicolaou smear of cervix with low grade squamous intraepithelial lesion (LGSIL)Pain in joint, ankle and foot09/27/2014 12/26/2015ASCUS favor lpmnxbiuw17Visit for gynecologic cpgpjhnxuli34Postmenopausal HRT (hormone replacement therapy) Overview: offered Gait ilzpckbsrtf99Weakness of both legs Sprain of ankle, leftPCP (pneumocystis jiroveci pneumonia) Acute respiratory failure with gmjouzmhn75 Overview: Increased O2 requirement overnight (2L to 5L) - bronchoscopy with BAL/TBLB tomorrow 8 AM. - NPO from midnight - hold tonight dose of lovenox. Radiation vwbovptvewr52 Overview: 40 mg prednisone daily Immunodeficiency with predominant T-cell defect, tiyyfoqzxme70 Urgency of cwxvmuovpbk45/15/036948/07/2016Urinary lmurxsmlr98 Arm pain, leftBack pain without otjtzqluy47/19/2014 12/26/2015Abnormal finding on iwbkzxa88Elevated sed rate Hyperpigmentation of skin Overview: --resolved --bilateral breast tissue and axilla --order mycolog cream --monitor Vpkuswpf56 Overview: - c diff pending Mucositis (ulcerative) due to antineoplastic zxyychl92 Overview: --improved --oxy prn --mouth care measures. Fsbykg81 Overview: --improved with protonix Elevated LFTs Overview: --increased AST ALT during chemo, resolved. Excess fluid sgytwf11 Overview: --diuresis as needed --continue to monitor volume status CINV (chemotherapy-induced nausea and vomiting) Overview: --Resolved --Ativan PRN (none used) Peripheral bcqawbgwnd72 Overview: --gabapentin 300mg TID with increased symptoms, bedtime dose of gabapentin increased to 600mg with improvement reported, continue DVT eyrvyltfmvv66 Overview: --platelet count decreasing, d/c heparin SQ --encourage ambulation Pymbgwzc36 Overview: --ambien PRN at HS, with relief, but with vivid dreams, bright d/c --restoril at 30mg PRN at HS with relief, continue Chronic chest pain Overview: --now resolved --since Hodgkin lymphoma diagnosis per patient Hospital discharge follow-up Overview: --Patient will need to follow up with Dr. Unger after discharge Payoxwlpubr77 Overview: --patient taking atenolol 100mg BID at home, now BP running lower, decreased atenolol dose to 50mg BID with hypotension. --increase to 75mg BID, d/t tachycardia(HRs >110 while afebrile), HR now controlled, continue --monitor closely Electrolyte and fluid disorders not elsewhere vjhandwuwm19 DISPOSITION AND FOLLOW-UP Overview: 32 yo female from [place], [place]. Family involved with care, at bedside. 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 will start PO pain meds today 10/27. tolerating percocet, pain relatively well controlled. Hodgkin's disease with nodular efykfqmql64 Overview: Oncology history (per Dr. 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 Hodgkin's disease, lakffasheha14Vaginal yfdkosac20/07/2016 Overview: --likely from thrombocytopenia. No menses in prior 8 months. 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 Premature tafobihnu24/07/2016Postmenopausal atrophic ovdipsvsv52/07/2016 Phrfbnhhprs15/07/2016documented as of this encounter (statuses as of 08/30/2021) [facility]01[facility]2018 History of Past illness Narrative* ProblemNoted Date Resolved DateMenorrhagia with regular cycle Overview: Added automatically from request for surgery [id number] History of pulmonary nsshflvp00Neoplastic (malignant) related csbmmmo50Hidradenitis ghjpisnmqgz94Vitamin D dhjciwpkvh11HyperCKemiaElevated aldolase levelChronic pain of both kneesPain in joint, multiple sitesMyalgiaFatigue Malaise and woedocs25Gastroesophageal reflux disease without bgxkmgmvhhy54Laryngitis02/23/2015 12/26/2015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 (poly)uggyhfrium92/10/2015 12/26/2015Papanicolaou smear of cervix with low grade squamous intraepithelial lesion (LGSIL)Pain in joint, ankle and foot09/27/2014 12/26/2015ASCUS favor qhgzwnzfj66Visit for gynecologic gbozrmjsnzf09Postmenopausal HRT (hormone replacement therapy) Overview: offered Gait krzqlnqtmxp40Weakness of both legs Sprain of ankle, leftPCP (pneumocystis jiroveci pneumonia) Acute respiratory failure with frrzkenrv62 Overview: Increased O2 requirement overnight (2L to 5L) - bronchoscopy with BAL/TBLB tomorrow 8 AM. - NPO from midnight - hold tonight dose of lovenox. Radiation efrkszkunrt44 Overview: 40 mg prednisone daily Immunodeficiency with predominant T-cell defect, qcqoyfaqokv38 Urgency of kwwxrfrikfg06Urinary wjheqirdy22 Arm pain, leftBack pain without toisqqgre67/19/2014 12/26/2015Abnormal finding on wwzbqtn43Elevated sed rate Hyperpigmentation of skin Overview: --resolved --bilateral breast tissue and axilla --order mycolog cream --monitor Wnchsybm99 Overview: - c diff pending Mucositis (ulcerative) due to antineoplastic yobtqnx07 Overview: --improved --oxy prn --mouth care measures. Kstkgc24 Overview: --improved with protonix Elevated LFTs Overview: --increased AST ALT during chemo, resolved. Excess fluid zmjovl82 Overview: --diuresis as needed --continue to monitor volume status CINV (chemotherapy-induced nausea and vomiting) Overview: --Resolved --Ativan PRN (none used) Peripheral rdseslcbmn36 Overview: --gabapentin 300mg TID with increased symptoms, bedtime dose of gabapentin increased to 600mg with improvement reported, continue DVT higkovneunw85 Overview: --platelet count decreasing, d/c heparin SQ --encourage ambulation Xpazmerr34 Overview: --ambien PRN at HS, with relief, but with vivid dreams, ambien d/c --restoril at 30mg PRN at HS with relief, continue Chronic chest pain Overview: --now resolved --since Hodgkin lymphoma diagnosis per patient Hospital discharge follow-up Overview: --Patient will need to follow up with Dr. Unger after discharge Fskrcmrifmw64 Overview: --patient taking atenolol 100mg BID at home, now BP running lower, decreased atenolol dose to 50mg BID with hypotension. --increase to 75mg BID, d/t tachycardia(HRs >110 while afebrile), HR now controlled, continue --monitor closely Electrolyte and fluid disorders not elsewhere qqxlrahxkk32 DISPOSITION AND FOLLOW-UP Overview: 32 yo female from [place], [place]. Family involved with care, at bedside. 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 will start PO pain meds today 10/27. tolerating percocet, pain relatively well controlled. Hodgkin's disease with nodular etphpskxr27 Overview: Oncology history (per Dr. 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 Hodgkin's disease, ipjsdtzwmrb02Vaginal ofpyexub27/07/2016 Overview: --likely from thrombocytopenia. No menses in prior 8 months. 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 Premature vztlajjst83/07/2016Postmenopausal atrophic ppslmpoga13/07/2016 Jdxmftucctb71/07/2016documented as of this encounter (statuses as of 09/04/2021) [facility]01[facility]2018 History of Past illness Narrative* ProblemNoted Date Resolved DateMenorrhagia with regular cycle Overview: Added automatically from request for surgery [id number] History of pulmonary vzhkfuht06Neoplastic (malignant) related tzwqrnd18Hidradenitis ybaxcmvrciu86Vitamin D lnaighskgb05HyperCKemiaElevated aldolase levelChronic pain of both kneesPain in joint, multiple sitesMyalgiaFatigue Malaise and qkzzcsz15Gastroesophageal reflux disease without tvrhwwnyuld79Laryngitis02/23/2015 12/26/2015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 (poly)qeaidvqngp92/10/2015 12/26/2015Papanicolaou smear of cervix with low grade squamous intraepithelial lesion (LGSIL)Pain in joint, ankle and foot09/27/2014 12/26/2015ASCUS favor uuxwlwhqz78Visit for gynecologic drfjdrelndp78Postmenopausal HRT (hormone replacement therapy) Overview: offered Gait sxxlbyugrjo23Weakness of both legs Sprain of ankle, leftPCP (pneumocystis jiroveci pneumonia) Acute respiratory failure with smhawcksl82 Overview: Increased O2 requirement overnight (2L to 5L) - bronchoscopy with BAL/TBLB tomorrow 8 AM. - NPO from midnight - hold tonight dose of lovenox. Radiation ikdzgqgbpao11 Overview: 40 mg prednisone daily Immunodeficiency with predominant T-cell defect, glkiqzjtaih54 Urgency of yefhvjvcfwp76Urinary yammkczmh96 Arm pain, leftBack pain without /19/2014 12/26/2015Abnormal finding on hupuggk49Elevated sed rate Hyperpigmentation of skin Overview: --resolved --bilateral breast tissue and axilla --order mycolog cream --monitor Xovmsusk77 Overview: - c diff pending Mucositis (ulcerative) due to antineoplastic Overview: --improved --oxy prn --mouth care measures. Vayyky29 Overview: --improved with protonix Elevated LFTs Overview: --increased AST ALT during chemo, resolved. Excess fluid kxuufn31 Overview: --diuresis as needed --continue to monitor volume status CINV (chemotherapy-induced nausea and vomiting) Overview: --Resolved --Ativan PRN (none used) Peripheral psejwolonx08 Overview: --gabapentin 300mg TID with increased symptoms, bedtime dose of gabapentin increased to 600mg with improvement reported, continue DVT gyvsfustgzy43 Overview: --platelet count decreasing, d/c heparin SQ --encourage ambulation Ehrbbqcf86 Overview: --ambien PRN at HS, with relief, but with vivid dreams, ambien d/c --restoril at 30mg PRN at HS with relief, continue Chronic chest pain Overview: --now resolved --since Hodgkin lymphoma diagnosis per patient Hospital discharge follow-up Overview: --Patient will need to follow up with Dr. Unger after discharge Vqusoiafxmn75 Overview: --patient taking atenolol 100mg BID at home, now BP running lower, decreased atenolol dose to 50mg BID with hypotension. --increase to 75mg BID, d/t tachycardia(HRs >110 while afebrile), HR now controlled, continue --monitor closely Electrolyte and fluid disorders not elsewhere hrpehhpwlm74 DISPOSITION AND FOLLOW-UP Overview: 32 yo female from [place], [place]. Family involved with care, at bedside. 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 will start PO pain meds today 10/27. tolerating percocet, pain relatively well controlled. Hodgkin's disease with nodular udorclffz53 Overview: Oncology history (per Dr. 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 Hodgkin's disease, jfnmoizaewu32Vaginal ykbjtryv32/07/2016 Overview: --likely from thrombocytopenia. No menses in prior 8 months. 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 Premature cdohgtvej08/07/2016Postmenopausal atrophic ehujuijxy14/07/2016 Gceacnaaeuo98/07/2016documented as of this encounter (statuses as of 09/04/2021) [facility] History of Past illness Narrative* ProblemNoted Date Resolved DateMenorrhagia with regular cycle Overview: Added automatically from request for surgery [id number] History of pulmonary vpnersps84Neoplastic (malignant) related nxdlmhd30Hidradenitis gbrceivpvor18Vitamin D gfsdmhxhwj17HyperCKemiaElevated aldolase levelChronic pain of both kneesPain in joint, multiple sitesMyalgiaFatigue Malaise and prfztme06Gastroesophageal reflux disease without faumxebkcjf34Laryngitis02/23/2015 12/26/2015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 (poly)fixypqkezy19/10/2015 12/26/2015Papanicolaou smear of cervix with low grade squamous intraepithelial lesion (LGSIL)Pain in joint, ankle and foot09/27/2014 12/26/2015ASCUS favor manumzwhh82Visit for gynecologic bpahhjwlarf47Postmenopausal HRT (hormone replacement therapy) Overview: offered Gait umllurffqml83Weakness of both legs07/22/ Sprain of ankle, leftPCP (pneumocystis jiroveci pneumonia) Acute respiratory failure with ufxtbhtof94 Overview: Increased O2 requirement overnight (2L to 5L) - bronchoscopy with BAL/TBLB tomorrow 8 AM. - NPO from midnight - hold tonight dose of lovenox. Radiation dwfzrucsxlc80 Overview: 40 mg prednisone daily Immunodeficiency with predominant T-cell defect, qblwtdjrxas54 Urgency of ptzfutcimzx11Urinary raohgqwyv15 Arm pain, leftBack pain without llgaxkgsh59/19/2014 12/26/2015Abnormal finding on wygoepn52Elevated sed rate Hyperpigmentation of skin Overview: --resolved --bilateral breast tissue and axilla --order mycolog cream --monitor Yslhkigh30 Overview: - c diff pending Mucositis (ulcerative) due to antineoplastic aoknmrz43 Overview: --improved --oxy prn --mouth care measures. Cariwy78 Overview: --improved with protonix Elevated LFTs Overview: --increased AST ALT during chemo, resolved. Excess fluid Overview: --diuresis as needed --continue to monitor volume status CINV (chemotherapy-induced nausea and vomiting) Overview: --Resolved --Ativan PRN (none used) Peripheral ncdebijvdv00 Overview: --gabapentin 300mg TID with increased symptoms, bedtime dose of gabapentin increased to 600mg with improvement reported, continue DVT zfudbidzmhe39 Overview: --platelet count decreasing, d/c heparin SQ --encourage ambulation Xfayayba46 Overview: --ambien PRN at HS, with relief, but with vivid dreams, ambien d/c --restoril at 30mg PRN at HS with relief, continue Chronic chest pain Overview: --now resolved --since Hodgkin lymphoma diagnosis per patient Hospital discharge follow-up Overview: --Patient will need to follow up with Dr. Unger after discharge Edqncbxtbhe19 Overview: --patient taking atenolol 100mg BID at home, now BP running lower, decreased atenolol dose to 50mg BID with hypotension. --increase to 75mg BID, d/t tachycardia(HRs >110 while afebrile), HR now controlled, continue --monitor closely Electrolyte and fluid disorders not elsewhere zyymdlvcou09 DISPOSITION AND FOLLOW-UP Overview: 32 yo female from [place]. Family involved with care, at bedside. 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 will start PO pain meds today 10/27. tolerating percocet, pain relatively well controlled. Hodgkin's disease with nodular khxswgjwe54 Overview: Oncology history (per Dr. 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 Hodgkin's disease, zjsncocbisf96Vaginal gnnwuhjt59/07/2016 Overview: --likely from thrombocytopenia. No menses in prior 8 months. 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 Premature mraogzgky55/07/2016Postmenopausal atrophic vhpsfeesz31/07/2016 Giimaprxevp77/07/2016documented as of this encounter (statuses as of 09/05/2021) [facility] History of Past illness Narrative* ProblemNoted Date Resolved DateMenorrhagia with regular cycle Overview: Added automatically from request for surgery [id number] History of pulmonary wzswdvbh79Neoplastic (malignant) related ujludco81Hidradenitis mqqihthcdeh30Vitamin D bfweofwsra84HyperCKemiaElevated aldolase levelChronic pain of both kneesPain in joint, multiple sitesMyalgiaFatigue Malaise and nmbjort77/04/Gastroesophageal reflux disease without xniqkjgkjpk58Laryngitis02/23/2015 12/26/2015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 (poly)ihcwrlrgly77/10/2015 12/26/2015Papanicolaou smear of cervix with low grade squamous intraepithelial lesion (LGSIL)Pain in joint, ankle and foot09/27/2014 12/26/2015ASCUS favor glmyvaumz14Visit for gynecologic nzmtqgjcdce49Postmenopausal HRT (hormone replacement therapy) Overview: offered Gait mhtvlqfcwfu03Weakness of both legs Sprain of ankle, leftPCP (pneumocystis jiroveci pneumonia) Acute respiratory failure with ssuorlaum99 Overview: Increased O2 requirement overnight (2L to 5L) - bronchoscopy with BAL/TBLB tomorrow 8 AM. - NPO from midnight - hold tonight dose of lovenox. Radiation gkshdjoarpo31 Overview: 40 mg prednisone daily Immunodeficiency with predominant T-cell defect, pxaodfniiqe37 Urgency of oviibakriee80Urinary iyvcgtsmb32 Arm pain, leftBack pain without isrledmxg85/19/2014 12/26/2015Abnormal finding on edoituq44Elevated sed rate Hyperpigmentation of skin Overview: --resolved --bilateral breast tissue and axilla --order mycolog cream --monitor Qkpauetm14 Overview: - c diff pending Mucositis (ulcerative) due to antineoplastic hxdvecl72 Overview: --improved --oxy prn --mouth care measures. Gotgqs99 Overview: --improved with protonix Elevated LFTs Overview: --increased AST ALT during chemo, resolved. Excess fluid Overview: --diuresis as needed --continue to monitor volume status CINV (chemotherapy-induced nausea and vomiting) Overview: --Resolved --Ativan PRN (none used) Peripheral uxddkaocwq59 Overview: --gabapentin 300mg TID with increased symptoms, bedtime dose of gabapentin increased to 600mg with improvement reported, continue DVT laiortdcrdw48 Overview: --platelet count decreasing, d/c heparin SQ --encourage ambulation Bhrnkmdi40 Overview: --ambien PRN at HS, with relief, but with vivid dreams, ambien d/c --restoril at 30mg PRN at HS with relief, continue Chronic chest pain Overview: --now resolved --since Hodgkin lymphoma diagnosis per patient Hospital discharge follow-up Overview: --Patient will need to follow up with Dr. Unger after discharge Awrqhxfmqfe01 Overview: --patient taking atenolol 100mg BID at home, now BP running lower, decreased atenolol dose to 50mg BID with hypotension. --increase to 75mg BID, d/t tachycardia(HRs >110 while afebrile), HR now controlled, continue --monitor closely Electrolyte and fluid disorders not elsewhere tomiavqfsg53 DISPOSITION AND FOLLOW-UP Overview: 32 yo female from [place], [place]. Family involved with care, at bedside. 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 will start PO pain meds today 10/27. tolerating percocet, pain relatively well controlled. Hodgkin's disease with nodular Overview: Oncology history (per Dr. 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 Hodgkin's disease, ktyyhgahnmy01Vaginal sgkxfyyh15/07/2016 Overview: --likely from thrombocytopenia. No menses in prior 8 months. 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 Premature blagxzdxf36/07/2016Postmenopausal atrophic eafftapdy80/07/2016 Eefekxttpce02/07/2016documented as of this encounter (statuses as of 09/06/2021) [facility] History of Past illness Narrative* ProblemNoted Date Resolved DateMenorrhagia with regular cycle Overview: Added automatically from request for surgery [id number] History of pulmonary zgntpvfc90Neoplastic (malignant) related ufjacad51Hidradenitis kmffvhnkmny20Vitamin D nbzenedoyo00HyperCKemiaElevated aldolase levelChronic pain of both kneesPain in joint, multiple sitesMyalgiaFatigue Malaise and hyjpcis42Gastroesophageal reflux disease without japycpqyrdz80Laryngitis02/23/2015 12/26/2015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 (poly)xunthpfdsd22/10/2015 12/26/2015Papanicolaou smear of cervix with low grade squamous intraepithelial lesion (LGSIL)Pain in joint, ankle and foot09/27/2014 12/26/2015ASCUS favor etrhrubxn19Visit for gynecologic ezmhvxhancu88Postmenopausal HRT (hormone replacement therapy) Overview: offered Gait rttqadctwdo82Weakness of both legs07/22/ Sprain of ankle, leftPCP (pneumocystis jiroveci pneumonia) Acute respiratory failure with nnyqpesdi39 Overview: Increased O2 requirement overnight (2L to 5L) - bronchoscopy with BAL/TBLB tomorrow 8 AM. - NPO from midnight - hold tonight dose of lovenox. Radiation kfqjcebfnau06 Overview: 40 mg prednisone daily Immunodeficiency with predominant T-cell defect, tpguwdbdmaz88 Urgency of mnxnloapzvm90Urinary tasgybbjs77 Arm pain, leftBack pain without /19/2014 12/26/2015Abnormal finding on rlodpej53Elevated sed rate Hyperpigmentation of skin Overview: --resolved --bilateral breast tissue and axilla --order mycolog cream --monitor Fjzgqovc19 Overview: - c diff pending Mucositis (ulcerative) due to antineoplastic Overview: --improved --oxy prn --mouth care measures. Amfyaq91 Overview: --improved with protonix Elevated LFTs Overview: --increased AST ALT during chemo, resolved. Excess fluid jdoija70 Overview: --diuresis as needed --continue to monitor volume status CINV (chemotherapy-induced nausea and vomiting) Overview: --Resolved --Ativan PRN (none used) Peripheral ukhlrlwgco09 Overview: --gabapentin 300mg TID with increased symptoms, bedtime dose of gabapentin increased to 600mg with improvement reported, continue DVT jklfbenkneb48 Overview: --platelet count decreasing, d/c heparin SQ --encourage ambulation Puezqhqg13 Overview: --ambien PRN at HS, with relief, but with vivid dreams, ambien d/c --restoril at 30mg PRN at HS with relief, continue Chronic chest pain Overview: --now resolved --since Hodgkin lymphoma diagnosis per patient Hospital discharge follow-up Overview: --Patient will need to follow up with Dr. Unger after discharge Vxdbnxnqqjn66 Overview: --patient taking atenolol 100mg BID at home, now BP running lower, decreased atenolol dose to 50mg BID with hypotension. --increase to 75mg BID, d/t tachycardia(HRs >110 while afebrile), HR now controlled, continue --monitor closely Electrolyte and fluid disorders not elsewhere ifqylrljgd88 DISPOSITION AND FOLLOW-UP Overview: 32 yo female from [place], [place]. Family involved with care, at bedside. 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 will start PO pain meds today 10/27. tolerating percocet, pain relatively well controlled. Hodgkin's disease with nodular fzyomzobw16 Overview: Oncology history (per Dr. 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 Hodgkin's disease, gbgrkmyiujz68Vaginal wxdsarbo74/07/2016 Overview: --likely from thrombocytopenia. No menses in prior 8 months. 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 Premature ktobxlduy23/07/2016Postmenopausal atrophic jrkvjgevt78/07/2016 Tqrholwrqsq80/07/2016documented as of this encounter (statuses as of 09/11/2021) [facility]2018 History of Past illness Narrative* ProblemNoted Date Resolved DateMenorrhagia with regular cycle Overview: Added automatically from request for surgery [id number] History of pulmonary uzpcsaja96Neoplastic (malignant) related liukdjd59Hidradenitis lyyiytkjgqq63Vitamin D ngwwtqoxyf99HyperCKemiaElevated aldolase levelChronic pain of both kneesPain in joint, multiple sitesMyalgiaFatigue Malaise and okpvxzj69Gastroesophageal reflux disease without gadivshhizl42Laryngitis02/23/2015 12/26/2015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 (poly)frkbpvocea23/10/2015 12/26/2015Papanicolaou smear of cervix with low grade squamous intraepithelial lesion (LGSIL)Pain in joint, ankle and foot09/27/2014 12/26/2015ASCUS favor vkjwnycqn81Visit for gynecologic gfbqbtsywdx75Postmenopausal HRT (hormone replacement therapy) Overview: offered Gait gvyhtqikbzw57Weakness of both legs Sprain of ankle, leftPCP (pneumocystis jiroveci pneumonia) Acute respiratory failure with bfbubitfu12 Overview: Increased O2 requirement overnight (2L to 5L) - bronchoscopy with BAL/TBLB tomorrow 8 AM. - NPO from midnight - hold tonight dose of lovenox. Radiation tjncoepopuj63 Overview: 40 mg prednisone daily Immunodeficiency with predominant T-cell defect, owfrdkmmihx22 Urgency of uvohhcqwowc54Urinary Arm pain, leftBack pain without semkpzstw25/19/2014 12/26/2015Abnormal finding on ikogtad43Elevated sed rate Hyperpigmentation of skin Overview: --resolved --bilateral breast tissue and axilla --order mycolog cream --monitor Fbnmeniv26 Overview: - c diff pending Mucositis (ulcerative) due to antineoplastic Overview: --improved --oxy prn --mouth care measures. Wmopvj91 Overview: --improved with protonix Elevated LFTs Overview: --increased AST ALT during chemo, resolved. Excess fluid idfycr16 Overview: --diuresis as needed --continue to monitor volume status CINV (chemotherapy-induced nausea and vomiting) Overview: --Resolved --Ativan PRN (none used) Peripheral wkyrnlbeye07 Overview: --gabapentin 300mg TID with increased symptoms, bedtime dose of gabapentin increased to 600mg with improvement reported, continue DVT kjxbfylwmea99 Overview: --platelet count decreasing, d/c heparin SQ --encourage ambulation Twxnckvm95 Overview: --ambien PRN at HS, with relief, but with vivid dreams, ambien d/c --restoril at 30mg PRN at HS with relief, continue Chronic chest pain Overview: --now resolved --since Hodgkin lymphoma diagnosis per patient Hospital discharge follow-up Overview: --Patient will need to follow up with Dr. Unger after discharge Sbigigsoiou16 Overview: --patient taking atenolol 100mg BID at home, now BP running lower, decreased atenolol dose to 50mg BID with hypotension. --increase to 75mg BID, d/t tachycardia(HRs >110 while afebrile), HR now controlled, continue --monitor closely Electrolyte and fluid disorders not elsewhere qjygfshbrk00 DISPOSITION AND FOLLOW-UP Overview: 32 yo female from [place], [place]. Family involved with care, at bedside. 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 will start PO pain meds today 10/27. tolerating percocet, pain relatively well controlled. Hodgkin's disease with nodular hbvjiyilz49 Overview: Oncology history (per Dr. 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 Hodgkin's disease, qijdhzbqbik59Vaginal /07/2016 Overview: --likely from thrombocytopenia. No menses in prior 8 months. 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 Premature /07/2016Postmenopausal atrophic ihklfzijh76/07/2016 Shrumdirreh46/07/2016documented as of this encounter (statuses as of 09/22/2021) [facility] History of Past illness Narrative* ProblemNoted Date Resolved DateMenorrhagia with regular cycle Overview: Added automatically from request for surgery [id number] History of pulmonary ovgeiaqg31Neoplastic (malignant) related sjndvhy11Hidradenitis kavwszxmgqs88Vitamin D xaapzomsqj04HyperCKemiaElevated aldolase levelChronic pain of both kneesPain in joint, multiple sitesMyalgiaFatigue Malaise and qfoipor58Gastroesophageal reflux disease without qhdsiyzlrjz79Laryngitis02/23/2015 12/26/2015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 (poly)azykwrvsll57/10/2015 12/26/2015Papanicolaou smear of cervix with low grade squamous intraepithelial lesion (LGSIL)Pain in joint, ankle and foot09/27/2014 12/26/2015ASCUS favor uwhrvjtop17Visit for gynecologic wbbohpxoyjv20Postmenopausal HRT (hormone replacement therapy) Overview: offered Gait acegxdhppin42Weakness of both legs Sprain of ankle, leftPCP (pneumocystis jiroveci pneumonia) Acute respiratory failure with Overview: Increased O2 requirement overnight (2L to 5L) - bronchoscopy with BAL/TBLB tomorrow 8 AM. - NPO from midnight - hold tonight dose of lovenox. Radiation zoocayvdjzm05 Overview: 40 mg prednisone daily Immunodeficiency with predominant T-cell defect, kizqlxymeqh10 Urgency of gefntslzlcz08Urinary rlohwieae53 Arm pain, leftBack pain without hlgkkxxax47/19/2014 12/26/2015Abnormal finding on xctjhsi03Elevated sed rate Hyperpigmentation of skin Overview: --resolved --bilateral breast tissue and axilla --order mycolog cream --monitor Evxjziov39 Overview: - c diff pending Mucositis (ulcerative) due to antineoplastic xoanrbs46 Overview: --improved --oxy prn --mouth care measures. Ibrmny41 Overview: --improved with protonix Elevated LFTs Overview: --increased AST ALT during chemo, resolved. Excess fluid Overview: --diuresis as needed --continue to monitor volume status CINV (chemotherapy-induced nausea and vomiting) Overview: --Resolved --Ativan PRN (none used) Peripheral ogbjnwlucw03 Overview: --gabapentin 300mg TID with increased symptoms, bedtime dose of gabapentin increased to 600mg with improvement reported, continue DVT mqwuaoocjsb26 Overview: --platelet count decreasing, d/c heparin SQ --encourage ambulation Tvetoonf21 Overview: --ambien PRN at HS, with relief, but with vivid dreams, ambien d/c --restoril at 30mg PRN at HS with relief, continue Chronic chest pain Overview: --now resolved --since Hodgkin lymphoma diagnosis per patient Hospital discharge follow-up Overview: --Patient will need to follow up with Dr. Unger after discharge Ueoipbmdwab91 Overview: --patient taking atenolol 100mg BID at home, now BP running lower, decreased atenolol dose to 50mg BID with hypotension. --increase to 75mg BID, d/t tachycardia(HRs >110 while afebrile), HR now controlled, continue --monitor closely Electrolyte and fluid disorders not elsewhere auvhcpfjsu44 DISPOSITION AND FOLLOW-UP Overview: 32 yo female from [place], [place]. Family involved with care, at bedside. 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 will start PO pain meds today 10/27. tolerating percocet, pain relatively well controlled. Hodgkin's disease with nodular skdkevtxv67 Overview: Oncology history (per Dr. 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 Hodgkin's disease, mgmfjpxfllt40Vaginal /07/2016 Overview: --likely from thrombocytopenia. No menses in prior 8 months. 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 Premature yfuznqudc09/07/2016Postmenopausal atrophic ilhnrblrs61/07/2016 Zourjhnlmqx77/07/2016documented as of this encounter (statuses as of 09/22/2021) [facility] History of Past illness Narrative* ProblemNoted Date Resolved DateMenorrhagia with regular cycle Overview: Added automatically from request for surgery [id number] History of pulmonary wvxkfhdo65Neoplastic (malignant) related fegewaj66Hidradenitis miowndufklg76Vitamin D pvlzjhylem95HyperCKemiaElevated aldolase levelChronic pain of both kneesPain in joint, multiple sitesMyalgiaFatigue Malaise and taqkybd98Gastroesophageal reflux disease without anaruqtqtvl89Laryngitis02/23/2015 12/26/2015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 (poly)uppwtoqket85/10/2015 12/26/2015Papanicolaou smear of cervix with low grade squamous intraepithelial lesion (LGSIL)Pain in joint, ankle and foot09/27/2014 12/26/2015ASCUS favor ltmnhbiom89Visit for gynecologic ngbflhjfoqu43Postmenopausal HRT (hormone replacement therapy) Overview: offered Gait kufwfhwcltb68Weakness of both legs Sprain of ankle, leftPCP (pneumocystis jiroveci pneumonia) Acute respiratory failure with ptmekcuxp63 Overview: Increased O2 requirement overnight (2L to 5L) - bronchoscopy with BAL/TBLB tomorrow 8 AM. - NPO from midnight - hold tonight dose of lovenox. Radiation ctghlzrohqd80 Overview: 40 mg prednisone daily Immunodeficiency with predominant T-cell defect, ovmgtgryxqx38 Urgency of ungghhtsmpb56Urinary kitxllnwn28 Arm pain, leftBack pain without yjkycafyi31/19/2014 12/26/2015Abnormal finding on yktnpyw77Elevated sed rate Hyperpigmentation of skin Overview: --resolved --bilateral breast tissue and axilla --order mycolog cream --monitor Xzhpkfgg99 Overview: - c diff pending Mucositis (ulcerative) due to antineoplastic Overview: --improved --oxy prn --mouth care measures. Niaphk75 Overview: --improved with protonix Elevated LFTs Overview: --increased AST ALT during chemo, resolved. Excess fluid cazczr18 Overview: --diuresis as needed --continue to monitor volume status CINV (chemotherapy-induced nausea and vomiting) Overview: --Resolved --Ativan PRN (none used) Peripheral Overview: --gabapentin 300mg TID with increased symptoms, bedtime dose of gabapentin increased to 600mg with improvement reported, continue DVT cyasovwjknw39 Overview: --platelet count decreasing, d/c heparin SQ --encourage ambulation Uhuuopqy11 Overview: --ambien PRN at HS, with relief, but with vivid dreams, ambien d/c --restoril at 30mg PRN at HS with relief, continue Chronic chest pain Overview: --now resolved --since Hodgkin lymphoma diagnosis per patient Hospital discharge follow-up Overview: --Patient will need to follow up with Dr. Unger after discharge Ylygiwsodmw50 Overview: --patient taking atenolol 100mg BID at home, now BP running lower, decreased atenolol dose to 50mg BID with hypotension. --increase to 75mg BID, d/t tachycardia(HRs >110 while afebrile), HR now controlled, continue --monitor closely Electrolyte and fluid disorders not elsewhere kzlzcukyjz20 DISPOSITION AND FOLLOW-UP Overview: 32 yo female from [place], [place]. Family involved with care, at bedside. 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 will start PO pain meds today 10/27. tolerating percocet, pain relatively well controlled. Hodgkin's disease with nodular vwreapihv93 Overview: Oncology history (per Dr. 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 Hodgkin's disease, kamwxtqxtpq87Vaginal dblnsnir76/07/2016 Overview: --likely from thrombocytopenia. No menses in prior 8 months. 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 Premature xujntmkzg63/07/2016Postmenopausal atrophic qsojbgwlo43/07/2016 Doefigexgxi84/07/2016documented as of this encounter (statuses as of 10/02/2021) [facility] History of Past illness Narrative* ProblemNoted Date Resolved DateMenorrhagia with regular cycle Overview: Added automatically from request for surgery [id number] History of pulmonary mpjjoiyx98Neoplastic (malignant) related jcomvbc68Hidradenitis kwzueqefqbn92Vitamin D hafpdeijql99HyperCKemiaElevated aldolase levelChronic pain of both kneesPain in joint, multiple sitesMyalgiaFatigue Malaise and zvsravm64Gastroesophageal reflux disease without ugxisrkuvyp61Laryngitis02/23/2015 12/26/2015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 (poly)zovvrfpqxv23/10/2015 12/26/2015Papanicolaou smear of cervix with low grade squamous intraepithelial lesion (LGSIL)Pain in joint, ankle and foot09/27/2014 12/26/2015ASCUS favor gwcthmpvi82Visit for gynecologic lyaeydlsxmm55Postmenopausal HRT (hormone replacement therapy) Overview: offered Gait zeuasjbvgtv85Weakness of both legs Sprain of ankle, leftPCP (pneumocystis jiroveci pneumonia) Acute respiratory failure with ehjugtjaq32 Overview: Increased O2 requirement overnight (2L to 5L) - bronchoscopy with BAL/TBLB tomorrow 8 AM. - NPO from midnight - hold tonight dose of lovenox. Radiation yctsyzzninu68 Overview: 40 mg prednisone daily Immunodeficiency with predominant T-cell defect, gzadfowlcif67 Urgency of scouprpgfab97Urinary tkrrqfoly64 Arm pain, leftBack pain without sdvvyiedk89/19/2014 12/26/2015Abnormal finding on huqrckl63Elevated sed rate Hyperpigmentation of skin Overview: --resolved --bilateral breast tissue and axilla --order mycolog cream --monitor Vlvdiley77 Overview: - c diff pending Mucositis (ulcerative) due to antineoplastic ivrnhmm08 Overview: --improved --oxy prn --mouth care measures. Rlenlj49 Overview: --improved with protonix Elevated LFTs Overview: --increased AST ALT during chemo, resolved. Excess fluid Overview: --diuresis as needed --continue to monitor volume status CINV (chemotherapy-induced nausea and vomiting) Overview: --Resolved --Ativan PRN (none used) Peripheral bkskiccunw06 Overview: --gabapentin 300mg TID with increased symptoms, bedtime dose of gabapentin increased to 600mg with improvement reported, continue DVT lhxxdrzzidw10 Overview: --platelet count decreasing, d/c heparin SQ --encourage ambulation Unfouytt33 Overview: --ambien PRN at HS, with relief, but with vivid dreams, ambien d/c --restoril at 30mg PRN at HS with relief, continue Chronic chest pain Overview: --now resolved --since Hodgkin lymphoma diagnosis per patient Hospital discharge follow-up Overview: --Patient will need to follow up with Dr. Unger after discharge Iciaxgtgabl29 Overview: --patient taking atenolol 100mg BID at home, now BP running lower, decreased atenolol dose to 50mg BID with hypotension. --increase to 75mg BID, d/t tachycardia(HRs >110 while afebrile), HR now controlled, continue --monitor closely Electrolyte and fluid disorders not elsewhere sjmsrqmxyl18 DISPOSITION AND FOLLOW-UP Overview: 32 yo female from [place]. Family involved with care, at bedside. 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 will start PO pain meds today 10/27. tolerating percocet, pain relatively well controlled. Hodgkin's disease with nodular dieiieepe75 Overview: Oncology history (per Dr. 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 Hodgkin's disease, hipsnvgwemo07Vaginal /07/2016 Overview: --likely from thrombocytopenia. No menses in prior 8 months. 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 Premature qzwfyafrj90/07/2016Postmenopausal atrophic frbplmkec15/07/2016 Jzkbajwidhx24/07/2016documented as of this encounter (statuses as of 10/05/2021) [facility] History of Past illness Narrative* ProblemNoted Date Resolved DateMenorrhagia with regular cycle Overview: Added automatically from request for surgery [id number] History of pulmonary koczlpxd47Neoplastic (malignant) related azjwpaq59Hidradenitis ouknuvjcgtm40Vitamin D vfeulbjeso32HyperCKemiaElevated aldolase levelChronic pain of both kneesPain in joint, multiple sitesMyalgiaFatigue Malaise and epbgshm29Gastroesophageal reflux disease without hdpzalyomju60Laryngitis02/23/2015 12/26/2015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 (poly)mctwqxfxil07/10/2015 12/26/2015Papanicolaou smear of cervix with low grade squamous intraepithelial lesion (LGSIL)Pain in joint, ankle and foot09/27/2014 12/26/2015ASCUS favor qhocfyykd72Visit for gynecologic wnacgqcdlvd24Postmenopausal HRT (hormone replacement therapy) Overview: offered Gait fmwrqxuetec42Weakness of both legs Sprain of ankle, leftPCP (pneumocystis jiroveci pneumonia) Acute respiratory failure with cbcagager98 Overview: Increased O2 requirement overnight (2L to 5L) - bronchoscopy with BAL/TBLB tomorrow 8 AM. - NPO from midnight - hold tonight dose of lovenox. Radiation ezfqgabyadj67 Overview: 40 mg prednisone daily Immunodeficiency with predominant T-cell defect, monxolhbwxj91 Urgency of zmzdkfenoiq25Urinary lgbslskev79 Arm pain, leftBack pain without ijulmwbwd69/19/2014 12/26/2015Abnormal finding on wzhwbon35Elevated sed rate Hyperpigmentation of skin Overview: --resolved --bilateral breast tissue and axilla --order mycolog cream --monitor Bxljnofi82 Overview: - c diff pending Mucositis (ulcerative) due to antineoplastic rcizybj87 Overview: --improved --oxy prn --mouth care measures. Mjzgak64 Overview: --improved with protonix Elevated LFTs Overview: --increased AST ALT during chemo, resolved. Excess fluid nncdan57 Overview: --diuresis as needed --continue to monitor volume status CINV (chemotherapy-induced nausea and vomiting) Overview: --Resolved --Ativan PRN (none used) Peripheral lkfyiiawyh23 Overview: --gabapentin 300mg TID with increased symptoms, bedtime dose of gabapentin increased to 600mg with improvement reported, continue DVT sqtzdichtbo44 Overview: --platelet count decreasing, d/c heparin SQ --encourage ambulation Beiwfkdr59 Overview: --ambien PRN at HS, with relief, but with vivid dreams, ambien d/c --restoril at 30mg PRN at HS with relief, continue Chronic chest pain Overview: --now resolved --since Hodgkin lymphoma diagnosis per patient Hospital discharge follow-up Overview: --Patient will need to follow up with Dr. Unger after discharge Pivypcjzsuh02 Overview: --patient taking atenolol 100mg BID at home, now BP running lower, decreased atenolol dose to 50mg BID with hypotension. --increase to 75mg BID, d/t tachycardia(HRs >110 while afebrile), HR now controlled, continue --monitor closely Electrolyte and fluid disorders not elsewhere sqfgyclfxx64 DISPOSITION AND FOLLOW-UP Overview: 32 yo female from [place], [place]. Family involved with care, at bedside. 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 will start PO pain meds today 10/27. tolerating percocet, pain relatively well controlled. Hodgkin's disease with nodular Overview: Oncology history (per Dr. 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 Hodgkin's disease, uqxxomnrlmn76Vaginal ozyylbdb77/07/2016 Overview: --likely from thrombocytopenia. No menses in prior 8 months. 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 Premature /07/2016Postmenopausal atrophic sakbbhqdx19/07/2016 Hraltqxlkgk28/07/2016documented as of this encounter (statuses as of 10/16/2021) [facility] History of Past illness Narrative* ProblemNoted Date Resolved DateMenorrhagia with regular cycle Overview: Added automatically from request for surgery [id number] History of pulmonary uztfewsp79Neoplastic (malignant) related tsnqmot20Hidradenitis cfkwpzjtmqw96Vitamin D lazlpzndbq50HyperCKemiaElevated aldolase levelChronic pain of both kneesPain in joint, multiple sitesMyalgiaFatigue Malaise and ipyxuxa73Gastroesophageal reflux disease without tfzcwxeawlx41Laryngitis02/23/2015 12/26/2015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 (poly)jzfyoqflpz18/10/2015 12/26/2015Papanicolaou smear of cervix with low grade squamous intraepithelial lesion (LGSIL)Pain in joint, ankle and foot09/27/2014 12/26/2015ASCUS favor tlejahmed63Visit for gynecologic dmhxvzseeel71Postmenopausal HRT (hormone replacement therapy) Overview: offered Gait ovulcbnmiyo04Weakness of both legs Sprain of ankle, leftPCP (pneumocystis jiroveci pneumonia) Acute respiratory failure with rsczlqizp68 Overview: Increased O2 requirement overnight (2L to 5L) - bronchoscopy with BAL/TBLB tomorrow 8 AM. - NPO from midnight - hold tonight dose of lovenox. Radiation higazgwnvar99 Overview: 40 mg prednisone daily Immunodeficiency with predominant T-cell defect, zbowcmkadyf22 Urgency of ucimxpnorev47Urinary doopzsjxm22 Arm pain, leftBack pain without suklnssik10/19/2014 12/26/2015Abnormal finding on ecqdrqk76Elevated sed rate Hyperpigmentation of skin Overview: --resolved --bilateral breast tissue and axilla --order mycolog cream --monitor Dtprftqe06 Overview: - c diff pending Mucositis (ulcerative) due to antineoplastic ktkccro17 Overview: --improved --oxy prn --mouth care measures. Twlexv62 Overview: --improved with protonix Elevated LFTs Overview: --increased AST ALT during chemo, resolved. Excess fluid pxhbig58 Overview: --diuresis as needed --continue to monitor volume status CINV (chemotherapy-induced nausea and vomiting) Overview: --Resolved --Ativan PRN (none used) Peripheral nplkfhgueo15 Overview: --gabapentin 300mg TID with increased symptoms, bedtime dose of gabapentin increased to 600mg with improvement reported, continue DVT Overview: --platelet count decreasing, d/c heparin SQ --encourage ambulation Qaingecf79 Overview: --ambien PRN at HS, with relief, but with vivid dreams, ambien d/c --restoril at 30mg PRN at HS with relief, continue Chronic chest pain Overview: --now resolved --since Hodgkin lymphoma diagnosis per patient Hospital discharge follow-up Overview: --Patient will need to follow up with Dr. Unger after discharge Whksvqytguq23 Overview: --patient taking atenolol 100mg BID at home, now BP running lower, decreased atenolol dose to 50mg BID with hypotension. --increase to 75mg BID, d/t tachycardia(HRs >110 while afebrile), HR now controlled, continue --monitor closely Electrolyte and fluid disorders not elsewhere eeowinkdll30 DISPOSITION AND FOLLOW-UP Overview: 32 yo female from [place], [place]. Family involved with care, at bedside. 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 will start PO pain meds today 10/27. tolerating percocet, pain relatively well controlled. Hodgkin's disease with nodular ehrtjtlxr42 Overview: Oncology history (per Dr. 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 Hodgkin's disease, nekhvsukvrv60Vaginal tbiutudy55/07/2016 Overview: --likely from thrombocytopenia. No menses in prior 8 months. 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 Premature izasfjeyj88/07/2016Postmenopausal atrophic /07/2016 Brmcmjfqpoi87/07/2016documented as of this encounter (statuses as of 10/18/2021) [facility]01[facility]2018 History of Past illness Narrative* ProblemNoted Date Resolved DateMenorrhagia with regular cycle Overview: Added automatically from request for surgery [id number] History of pulmonary kaoosuwc49Neoplastic (malignant) related dcmjhco14Hidradenitis kcbeqdmngip21Vitamin D pkyztmeszo26HyperCKemiaElevated aldolase levelChronic pain of both kneesPain in joint, multiple sitesMyalgiaFatigue Malaise and tkbduld72Gastroesophageal reflux disease without kbtyryvmdnj58Laryngitis02/23/2015 12/26/2015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 (poly)ruthjpwcnr72/10/2015 12/26/2015Papanicolaou smear of cervix with low grade squamous intraepithelial lesion (LGSIL)Pain in joint, ankle and foot09/27/2014 12/26/2015ASCUS favor dswsjfqsz23Visit for gynecologic bwmunujnzdq64Postmenopausal HRT (hormone replacement therapy) Overview: offered Gait woicglqvbjd08Weakness of both legs Sprain of ankle, leftPCP (pneumocystis jiroveci pneumonia) Acute respiratory failure with jcxfgaari18 Overview: Increased O2 requirement overnight (2L to 5L) - bronchoscopy with BAL/TBLB tomorrow 8 AM. - NPO from midnight - hold tonight dose of lovenox. Radiation eqlcyyummdn17 Overview: 40 mg prednisone daily Immunodeficiency with predominant T-cell defect, trkloilknrf34 Urgency of avhuuylcyzs62Urinary gxgsyqqur07 Arm pain, leftBack pain without akqfaaqzx04/19/2014 12/26/2015Abnormal finding on xinohqr85Elevated sed rate Hyperpigmentation of skin Overview: --resolved --bilateral breast tissue and axilla --order mycolog cream --monitor Ligmsqrj48 Overview: - c diff pending Mucositis (ulcerative) due to antineoplastic abazgrh42 Overview: --improved --oxy prn --mouth care measures. Mqpcvi26 Overview: --improved with protonix Elevated LFTs Overview: --increased AST ALT during chemo, resolved. Excess fluid lfmqeo43 Overview: --diuresis as needed --continue to monitor volume status CINV (chemotherapy-induced nausea and vomiting) Overview: --Resolved --Ativan PRN (none used) Peripheral igrfjbqrpi26 Overview: --gabapentin 300mg TID with increased symptoms, bedtime dose of gabapentin increased to 600mg with improvement reported, continue DVT mcsndjnabxq51 Overview: --platelet count decreasing, d/c heparin SQ --encourage ambulation Eaihbotc16 Overview: --ambien PRN at HS, with relief, but with vivid dreams, ambien d/c --restoril at 30mg PRN at HS with relief, continue Chronic chest pain Overview: --now resolved --since Hodgkin lymphoma diagnosis per patient Hospital discharge follow-up Overview: --Patient will need to follow up with Dr. Unger after discharge Xajbmhirevj07 Overview: --patient taking atenolol 100mg BID at home, now BP running lower, decreased atenolol dose to 50mg BID with hypotension. --increase to 75mg BID, d/t tachycardia(HRs >110 while afebrile), HR now controlled, continue --monitor closely Electrolyte and fluid disorders not elsewhere mcautamlst59 DISPOSITION AND FOLLOW-UP Overview: 32 yo female from [place], [place]. Family involved with care, at bedside. 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 will start PO pain meds today 10/27. tolerating percocet, pain relatively well controlled. Hodgkin's disease with nodular omlksuhmt07 Overview: Oncology history (per Dr. 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 Hodgkin's disease, ygdqzazkwtt58Vaginal fggzyzfq11/07/2016 Overview: --likely from thrombocytopenia. No menses in prior 8 months. 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 Premature zftwteeee30/07/2016Postmenopausal atrophic yipyqqxsd42/07/2016 Wwdyfmaiaud24/07/2016documented as of this encounter (statuses as of 10/25/2021) [facility] History of Past illness Narrative* ProblemNoted Date Resolved DateMenorrhagia with regular cycle Overview: Added automatically from request for surgery [id number] History of pulmonary hdzzacbc14Neoplastic (malignant) related ydzjwtq85Hidradenitis zefqgwrxjnw32Vitamin D lidhghgxet80HyperCKemiaElevated aldolase levelChronic pain of both kneesPain in joint, multiple sitesMyalgiaFatigue Malaise and bspnxhc52Gastroesophageal reflux disease without qettjruimdv11Laryngitis02/23/2015 12/26/2015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 (poly)lfissieokh17/10/2015 12/26/2015Papanicolaou smear of cervix with low grade squamous intraepithelial lesion (LGSIL)Pain in joint, ankle and foot09/27/2014 12/26/2015ASCUS favor dkyimhxgj59Visit for gynecologic rwqztilonup77Postmenopausal HRT (hormone replacement therapy) Overview: offered Gait nkdmcuyjkcf84Weakness of both legs Sprain of ankle, leftPCP (pneumocystis jiroveci pneumonia) Acute respiratory failure with zgjkbaihn69 Overview: Increased O2 requirement overnight (2L to 5L) - bronchoscopy with BAL/TBLB tomorrow 8 AM. - NPO from midnight - hold tonight dose of lovenox. Radiation dglynujwfxw85 Overview: 40 mg prednisone daily Immunodeficiency with predominant T-cell defect, msxgrgaabwf07 Urgency of ujagpexuhjn64Urinary pkpzajfpw07 Arm pain, leftBack pain without tpynsafpd78/19/2014 12/26/2015Abnormal finding on tsgpzii91Elevated sed rate Hyperpigmentation of skin Overview: --resolved --bilateral breast tissue and axilla --order mycolog cream --monitor Vscnqpjd84 Overview: - c diff pending Mucositis (ulcerative) due to antineoplastic oaodxvn07 Overview: --improved --oxy prn --mouth care measures. Sfldyu18 Overview: --improved with protonix Elevated LFTs Overview: --increased AST ALT during chemo, resolved. Excess fluid Overview: --diuresis as needed --continue to monitor volume status CINV (chemotherapy-induced nausea and vomiting) Overview: --Resolved --Ativan PRN (none used) Peripheral obfjjudfkx55 Overview: --gabapentin 300mg TID with increased symptoms, bedtime dose of gabapentin increased to 600mg with improvement reported, continue DVT tmkdhlswsec81 Overview: --platelet count decreasing, d/c heparin SQ --encourage ambulation Bdamslwm52 Overview: --ambien PRN at HS, with relief, but with vivid dreams, ambien d/c --restoril at 30mg PRN at HS with relief, continue Chronic chest pain Overview: --now resolved --since Hodgkin lymphoma diagnosis per patient Hospital discharge follow-up Overview: --Patient will need to follow up with Dr. Unger after discharge Xgtydmcdbbv21 Overview: --patient taking atenolol 100mg BID at home, now BP running lower, decreased atenolol dose to 50mg BID with hypotension. --increase to 75mg BID, d/t tachycardia(HRs >110 while afebrile), HR now controlled, continue --monitor closely Electrolyte and fluid disorders not elsewhere DISPOSITION AND FOLLOW-UP Overview: 32 yo female from [place], [place]. Family involved with care, at bedside. 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 will start PO pain meds today 10/27. tolerating percocet, pain relatively well controlled. Hodgkin's disease with nodular nzknlsvre90 Overview: Oncology history (per Dr. 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 Hodgkin's disease, xzgezjxhico17Vaginal ydaupzap42/07/2016 Overview: --likely from thrombocytopenia. No menses in prior 8 months. 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 Premature atkhvbmzo25/07/2016Postmenopausal atrophic oyikbqcwc29/07/2016 Hwlzbeyghbo46/07/2016documented as of this encounter (statuses as of 10/25/2021) [facility] History of Past illness Narrative* ProblemNoted Date Resolved DateMenorrhagia with regular cycle Overview: Added automatically from request for surgery [id number] History of pulmonary mnqvgzhc27Neoplastic (malignant) related ghctibu44Hidradenitis hvmbmlurbzo27Vitamin D zbbomslrxv39HyperCKemiaElevated aldolase levelChronic pain of both kneesPain in joint, multiple sitesMyalgiaFatigue Malaise and fysekjo10Gastroesophageal reflux disease without ixwoqctlyyv40Laryngitis02/23/2015 12/26/2015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 (poly)kjcssjuirw80/10/2015 12/26/2015Papanicolaou smear of cervix with low grade squamous intraepithelial lesion (LGSIL)Pain in joint, ankle and foot09/27/2014 12/26/2015ASCUS favor ivrnydfky74Visit for gynecologic yaiaihwzred09Postmenopausal HRT (hormone replacement therapy) Overview: offered Gait fmsthpvwkdb49Weakness of both legs Sprain of ankle, leftPCP (pneumocystis jiroveci pneumonia) Acute respiratory failure with sauisctlp18 Overview: Increased O2 requirement overnight (2L to 5L) - bronchoscopy with BAL/TBLB tomorrow 8 AM. - NPO from midnight - hold tonight dose of lovenox. Radiation Overview: 40 mg prednisone daily Immunodeficiency with predominant T-cell defect, hbtrsqqbhoq11 Urgency of upzgcateykr72Urinary irjkvsgqw92 Arm pain, leftBack pain without ziacubuns23/19/2014 12/26/2015Abnormal finding on uugjupw99Elevated sed rate Hyperpigmentation of skin Overview: --resolved --bilateral breast tissue and axilla --order mycolog cream --monitor Uznebslp08 Overview: - c diff pending Mucositis (ulcerative) due to antineoplastic bzwshiv50 Overview: --improved --oxy prn --mouth care measures. Afwues07 Overview: --improved with protonix Elevated LFTs Overview: --increased AST ALT during chemo, resolved. Excess fluid exxsdn73 Overview: --diuresis as needed --continue to monitor volume status CINV (chemotherapy-induced nausea and vomiting) Overview: --Resolved --Ativan PRN (none used) Peripheral qihsqrcqil56 Overview: --gabapentin 300mg TID with increased symptoms, bedtime dose of gabapentin increased to 600mg with improvement reported, continue DVT uwmtbgveknb72 Overview: --platelet count decreasing, d/c heparin SQ --encourage ambulation Yayjfljf99 Overview: --ambien PRN at HS, with relief, but with vivid dreams, ambien d/c --restoril at 30mg PRN at HS with relief, continue Chronic chest pain Overview: --now resolved --since Hodgkin lymphoma diagnosis per patient Hospital discharge follow-up Overview: --Patient will need to follow up with Dr. Unger after discharge Pkqpjdngzvp43 Overview: --patient taking atenolol 100mg BID at home, now BP running lower, decreased atenolol dose to 50mg BID with hypotension. --increase to 75mg BID, d/t tachycardia(HRs >110 while afebrile), HR now controlled, continue --monitor closely Electrolyte and fluid disorders not elsewhere ohdcdnrfhk15 DISPOSITION AND FOLLOW-UP Overview: 32 yo female from [place], [place]. Family involved with care, at bedside. 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 will start PO pain meds today 10/27. tolerating percocet, pain relatively well controlled. Hodgkin's disease with nodular Overview: Oncology history (per Dr. 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 Hodgkin's disease, sxbqmjcdkhc46Vaginal opvzniag79/07/2016 Overview: --likely from thrombocytopenia. No menses in prior 8 months. 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 Premature rqdqedjiy26/07/2016Postmenopausal atrophic hgfvqicxn75/07/2016 Wpaqsfdeynp03/07/2016documented as of this encounter (statuses as of 10/26/2021) [facility] History of Past illness Narrative* ProblemNoted Date Resolved DateMenorrhagia with regular cycle Overview: Added automatically from request for surgery [id number] History of pulmonary pkqjojmr10Neoplastic (malignant) related wpajnib74Hidradenitis mxxlhpaooma45Vitamin D cnahdiyndu55HyperCKemiaElevated aldolase levelChronic pain of both kneesPain in joint, multiple sitesMyalgiaFatigue Malaise and dcmwjjg62Gastroesophageal reflux disease without taubgycwpno71Laryngitis02/23/2015 12/26/2015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 (poly)svghcexjcx67/10/2015 12/26/2015Papanicolaou smear of cervix with low grade squamous intraepithelial lesion (LGSIL)Pain in joint, ankle and foot09/27/2014 12/26/2015ASCUS favor maesggpjq42Visit for gynecologic fnwhgtsedvn37Postmenopausal HRT (hormone replacement therapy) Overview: offered Gait dlgabaqiltz00Weakness of both legs Sprain of ankle, leftPCP (pneumocystis jiroveci pneumonia) Acute respiratory failure with exsfpkjnl93 Overview: Increased O2 requirement overnight (2L to 5L) - bronchoscopy with BAL/TBLB tomorrow 8 AM. - NPO from midnight - hold tonight dose of lovenox. Radiation wharnytopzg09 Overview: 40 mg prednisone daily Immunodeficiency with predominant T-cell defect, xbbdtabtnrj99 Urgency of ihtgfafswod68Urinary obmkzwstr48 Arm pain, leftBack pain without ptjoiqqhd24/19/2014 12/26/2015Abnormal finding on mfgrwbi80Elevated sed rate Hyperpigmentation of skin Overview: --resolved --bilateral breast tissue and axilla --order mycolog cream --monitor Kmnhulph72 Overview: - c diff pending Mucositis (ulcerative) due to antineoplastic jpermmq05 Overview: --improved --oxy prn --mouth care measures. Mufejz82 Overview: --improved with protonix Elevated LFTs Overview: --increased AST ALT during chemo, resolved. Excess fluid lqyfnh06 Overview: --diuresis as needed --continue to monitor volume status CINV (chemotherapy-induced nausea and vomiting) Overview: --Resolved --Ativan PRN (none used) Peripheral myaaeqfqfc79 Overview: --gabapentin 300mg TID with increased symptoms, bedtime dose of gabapentin increased to 600mg with improvement reported, continue DVT exqbiynisqy21 Overview: --platelet count decreasing, d/c heparin SQ --encourage ambulation Dghzhrid08 Overview: --ambien PRN at HS, with relief, but with vivid dreams, ambien d/c --restoril at 30mg PRN at HS with relief, continue Chronic chest pain Overview: --now resolved --since Hodgkin lymphoma diagnosis per patient Hospital discharge follow-up Overview: --Patient will need to follow up with Dr. Unger after discharge Urlfdudtfpl55 Overview: --patient taking atenolol 100mg BID at home, now BP running lower, decreased atenolol dose to 50mg BID with hypotension. --increase to 75mg BID, d/t tachycardia(HRs >110 while afebrile), HR now controlled, continue --monitor closely Electrolyte and fluid disorders not elsewhere gipuanjsoi40 DISPOSITION AND FOLLOW-UP Overview: 32 yo female from [place]. Family involved with care, at bedside. 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 will start PO pain meds today 10/27. tolerating percocet, pain relatively well controlled. Hodgkin's disease with nodular sizcpmgep09 Overview: Oncology history (per Dr. 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 Hodgkin's disease, fyvgcvpgeys60Vaginal kmoikfix65/07/2016 Overview: --likely from thrombocytopenia. No menses in prior 8 months. 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 Premature /07/2016Postmenopausal atrophic xueoxyqtl17/07/2016 Ihpxgfqnxsn59/07/2016documented as of this encounter (statuses as of 10/26/2021) [facility] History of Past illness Narrative* ProblemNoted Date Resolved DateMenorrhagia with regular cycle Overview: Added automatically from request for surgery [id number] History of pulmonary flshpsbi71Neoplastic (malignant) related bkklujh44Hidradenitis xwltscnmaom11Vitamin D fjnidmvkcv46HyperCKemiaElevated aldolase levelChronic pain of both kneesPain in joint, multiple sitesMyalgiaFatigue Malaise and nencgbs48Gastroesophageal reflux disease without uzfyrqmzybl70Laryngitis02/23/2015 12/26/2015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 (poly)lptsyjkkgl53/10/2015 12/26/2015Papanicolaou smear of cervix with low grade squamous intraepithelial lesion (LGSIL)Pain in joint, ankle and foot09/27/2014 12/26/2015ASCUS favor lyjkymcwe10Visit for gynecologic svnqsaltmbu22Postmenopausal HRT (hormone replacement therapy) Overview: offered Gait epiyzbqbmdr64Weakness of both legs Sprain of ankle, leftPCP (pneumocystis jiroveci pneumonia) Acute respiratory failure with qlupjuvqh99 Overview: Increased O2 requirement overnight (2L to 5L) - bronchoscopy with BAL/TBLB tomorrow 8 AM. - NPO from midnight - hold tonight dose of lovenox. Radiation pkvatvrlpdq76 Overview: 40 mg prednisone daily Immunodeficiency with predominant T-cell defect, ocpyzgmqaly96 Urgency of qvnwcwlggqo15Urinary jdkqshwuw78 Arm pain, leftBack pain without /19/2014 12/26/2015Abnormal finding on ogqxosm40Elevated sed rate Hyperpigmentation of skin Overview: --resolved --bilateral breast tissue and axilla --order mycolog cream --monitor Cncwrdnu23 Overview: - c diff pending Mucositis (ulcerative) due to antineoplastic rsssozc71 Overview: --improved --oxy prn --mouth care measures. Npcjpt51 Overview: --improved with protonix Elevated LFTs Overview: --increased AST ALT during chemo, resolved. Excess fluid Overview: --diuresis as needed --continue to monitor volume status CINV (chemotherapy-induced nausea and vomiting) Overview: --Resolved --Ativan PRN (none used) Peripheral tujyixcfiu53 Overview: --gabapentin 300mg TID with increased symptoms, bedtime dose of gabapentin increased to 600mg with improvement reported, continue DVT pihtohabclc53 Overview: --platelet count decreasing, d/c heparin SQ --encourage ambulation Texauwjw60 Overview: --ambien PRN at HS, with relief, but with vivid dreams, ambien d/c --restoril at 30mg PRN at HS with relief, continue Chronic chest pain Overview: --now resolved --since Hodgkin lymphoma diagnosis per patient Hospital discharge follow-up Overview: --Patient will need to follow up with Dr. Unger after discharge Vdsagpethos69 Overview: --patient taking atenolol 100mg BID at home, now BP running lower, decreased atenolol dose to 50mg BID with hypotension. --increase to 75mg BID, d/t tachycardia(HRs >110 while afebrile), HR now controlled, continue --monitor closely Electrolyte and fluid disorders not elsewhere kmddauzymo53 DISPOSITION AND FOLLOW-UP Overview: 32 yo female from [place], [place]. Family involved with care, at bedside. 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 will start PO pain meds today 10/27. tolerating percocet, pain relatively well controlled. Hodgkin's disease with nodular taflyobdq56 Overview: Oncology history (per Dr. 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 Hodgkin's disease, bsjxznvvump12/18/201203/Vaginal ksbmptan79/07/2016 Overview: --likely from thrombocytopenia. No menses in prior 8 months. 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 Premature /07/2016Postmenopausal atrophic gmezxtyii74/07/2016 Hvuaujzxjto42/07/2016documented as of this encounter (statuses as of 10/31/2021) [facility] History of Past illness Narrative* ProblemNoted Date Resolved DateMenorrhagia with regular cycle Overview: Added automatically from request for surgery [id number] History of pulmonary azyveeya88Neoplastic (malignant) related zvxzslp22Hidradenitis phaqkhppscp33Vitamin D updqwduihf52HyperCKemiaElevated aldolase levelChronic pain of both kneesPain in joint, multiple sitesMyalgiaFatigue Malaise and sbcptes59Gastroesophageal reflux disease without prprnojgpkv08Laryngitis02/23/2015 12/26/2015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 (poly)ffivgrayiv46/10/2015 12/26/2015Papanicolaou smear of cervix with low grade squamous intraepithelial lesion (LGSIL)Pain in joint, ankle and foot09/27/2014 12/26/2015ASCUS favor gnntqqmpz99Visit for gynecologic ydosfzpyvyz05Postmenopausal HRT (hormone replacement therapy) Overview: offered Gait iigavxiypxh66Weakness of both legs Sprain of ankle, left06/29/PCP (pneumocystis jiroveci pneumonia) Acute respiratory failure with wcguhyxib79 Overview: Increased O2 requirement overnight (2L to 5L) - bronchoscopy with BAL/TBLB tomorrow 8 AM. - NPO from midnight - hold tonight dose of lovenox. Radiation Overview: 40 mg prednisone daily Immunodeficiency with predominant T-cell defect, zgfhfzawltv14 Urgency of itayepdjecm95Urinary cancclfmf47 Arm pain, leftBack pain without lyszulwyi42/19/2014 12/26/2015Abnormal finding on vlcnugc17Elevated sed rate Hyperpigmentation of skin Overview: --resolved --bilateral breast tissue and axilla --order mycolog cream --monitor Aizonepy25 Overview: - c diff pending Mucositis (ulcerative) due to antineoplastic rtbodhl80 Overview: --improved --oxy prn --mouth care measures. Lrlwcp76 Overview: --improved with protonix Elevated LFTs Overview: --increased AST ALT during chemo, resolved. Excess fluid Overview: --diuresis as needed --continue to monitor volume status CINV (chemotherapy-induced nausea and vomiting) Overview: --Resolved --Ativan PRN (none used) Peripheral vgbcizqrdx93 Overview: --gabapentin 300mg TID with increased symptoms, bedtime dose of gabapentin increased to 600mg with improvement reported, continue DVT teexbiqjnca39 Overview: --platelet count decreasing, d/c heparin SQ --encourage ambulation Fjcjnula16 Overview: --ambien PRN at HS, with relief, but with vivid dreams, ambien d/c --restoril at 30mg PRN at HS with relief, continue Chronic chest pain Overview: --now resolved --since Hodgkin lymphoma diagnosis per patient Hospital discharge follow-up Overview: --Patient will need to follow up with Dr. Unger after discharge Xopyvtrnjqx48 Overview: --patient taking atenolol 100mg BID at home, now BP running lower, decreased atenolol dose to 50mg BID with hypotension. --increase to 75mg BID, d/t tachycardia(HRs >110 while afebrile), HR now controlled, continue --monitor closely Electrolyte and fluid disorders not elsewhere zhzkaonejb37 DISPOSITION AND FOLLOW-UP Overview: 32 yo female from [place], [place]. Family involved with care, at bedside. 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 will start PO pain meds today 10/27. tolerating percocet, pain relatively well controlled. Hodgkin's disease with nodular qvbofojcj91 Overview: Oncology history (per Dr. 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 Hodgkin's disease, aveanvqlpqf33Vaginal zwhryqce82/07/2016 Overview: --likely from thrombocytopenia. No menses in prior 8 months. 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 Premature qdjbhdsyr13/07/2016Postmenopausal atrophic nsksgyihq86/07/2016 Hagqovsnccp68/07/2016documented as of this encounter (statuses as of 11/08/2021) [facility]2018 History of Past illness Narrative* ProblemNoted Date Resolved DateMenorrhagia with regular cycle Overview: Added automatically from request for surgery [id number] History of pulmonary ageytios45Neoplastic (malignant) related pvtakuv70Hidradenitis dagpuatkyai71Vitamin D eralidmztl85HyperCKemiaElevated aldolase levelChronic pain of both kneesPain in joint, multiple sitesMyalgiaFatigue Malaise and tfnqqdp15Gastroesophageal reflux disease without ndihguvwjxh26Laryngitis02/23/2015 12/26/2015Drug/chem diab w neuro comp w diab autonm (poly)fvenqwbwce50/10/2015 12/26/2015Papanicolaou smear of cervix with low grade squamous intraepithelial lesion (LGSIL)Pain in joint, ankle and foot09/27/2014 12/26/2015ASCUS favor waforfkfb25Visit for gynecologic dvymhewfyvo72Postmenopausal HRT (hormone replacement therapy) Overview: offered Gait nzhokkgyuix11Weakness of both legs Sprain of ankle, leftPCP (pneumocystis jiroveci pneumonia) Acute respiratory failure with pbutknsyi31 Overview: Increased O2 requirement overnight (2L to 5L) - bronchoscopy with BAL/TBLB tomorrow 8 AM. - NPO from midnight - hold tonight dose of lovenox. Radiation cdwkhlymfcw06 Overview: 40 mg prednisone daily Immunodeficiency with predominant T-cell defect, jdmbjtiswau13 Urgency of tsgabwrvtdd70Urinary uwrnllslw49 Arm pain, leftBack pain without hkjlfoszl44/19/2014 12/26/2015Abnormal finding on lnfcddc08Elevated sed rate Hyperpigmentation of skin Overview: --resolved --bilateral breast tissue and axilla --order mycolog cream --monitor Rheiklat14 Overview: - c diff pending Mucositis (ulcerative) due to antineoplastic ivtzuxh13 Overview: --improved --oxy prn --mouth care measures. Isryaj20 Overview: --improved with protonix Elevated LFTs Overview: --increased AST ALT during chemo, resolved. Excess fluid pmsooo93 Overview: --diuresis as needed --continue to monitor volume status CINV (chemotherapy-induced nausea and vomiting) Overview: --Resolved --Ativan PRN (none used) Peripheral ikqtwolerp30 Overview: --gabapentin 300mg TID with increased symptoms, bedtime dose of gabapentin increased to 600mg with improvement reported, continue DVT etjbbcnizhp57 Overview: --platelet count decreasing, d/c heparin SQ --encourage ambulation Xvvrowfz34 Overview: --ambien PRN at HS, with relief, but with vivid dreams, ambien d/c --restoril at 30mg PRN at HS with relief, continue Chronic chest pain Overview: --now resolved --since Hodgkin lymphoma diagnosis per patient Hospital discharge follow-up Overview: --Patient will need to follow up with Dr. Unger after discharge Igarseheykj35 Overview: --patient taking atenolol 100mg BID at home, now BP running lower, decreased atenolol dose to 50mg BID with hypotension. --increase to 75mg BID, d/t tachycardia(HRs >110 while afebrile), HR now controlled, continue --monitor closely Electrolyte and fluid disorders not elsewhere anznpmqerd23 DISPOSITION AND FOLLOW-UP Overview: 32 yo female from [place], [place]. Family involved with care, at bedside. 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 will start PO pain meds today 10/27. tolerating percocet, pain relatively well controlled. Hodgkin's disease with nodular eckkjvzih66 Overview: Oncology history (per Dr. 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 Hodgkin's disease, dsnvtfxjnew49Vaginal pusmuesy65/07/2016 Overview: --likely from thrombocytopenia. No menses in prior 8 months. 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 Premature egyulutwb37/07/2016Postmenopausal atrophic wtfcjygtm38/07/2016 Fexlapuobch14/07/2016documented as of this encounter (statuses as of 11/13/2021) [facility]2018 History of Past illness Narrative* ProblemNoted Date Resolved DateMenorrhagia with regular cycle Overview: Added automatically from request for surgery [id number] History of pulmonary szhdgigg26Neoplastic (malignant) related qirfemo38Hidradenitis ywllfotpcfl74Vitamin D sfkmtdllhi75HyperCKemiaElevated aldolase levelChronic pain of both kneesPain in joint, multiple sitesMyalgiaFatigue Malaise and ywppsds32Gastroesophageal reflux disease without rnkdkqslphx87Laryngitis02/23/2015 12/26/2015Drug/chem diab w neuro comp w diab autonm (poly)ldmetotkru56/10/2015 12/26/2015Papanicolaou smear of cervix with low grade squamous intraepithelial lesion (LGSIL)Pain in joint, ankle and foot09/27/2014 12/26/2015ASCUS favor ubjbydinr94Visit for gynecologic qapkrvtckze57Postmenopausal HRT (hormone replacement therapy) Overview: offered Gait jibplkgarll12Weakness of both legs Sprain of ankle, leftPCP (pneumocystis jiroveci pneumonia) Acute respiratory failure with qgwatwnzz20 Overview: Increased O2 requirement overnight (2L to 5L) - bronchoscopy with BAL/TBLB tomorrow 8 AM. - NPO from midnight - hold tonight dose of lovenox. Radiation tgtzgdireyh32 Overview: 40 mg prednisone daily Immunodeficiency with predominant T-cell defect, gseebpyuvwy37 Urgency of nicxcqngenq15Urinary yjdsulpma57 Arm pain, leftBack pain without mkojhugzh51/19/2014 12/26/2015Abnormal finding on pipcmwf96Elevated sed rate Hyperpigmentation of skin Overview: --resolved --bilateral breast tissue and axilla --order mycolog cream --monitor Fndvszsu23 Overview: - c diff pending Mucositis (ulcerative) due to antineoplastic Overview: --improved --oxy prn --mouth care measures. Aetwpz22 Overview: --improved with protonix Elevated LFTs Overview: --increased AST ALT during chemo, resolved. Excess fluid darppc66 Overview: --diuresis as needed --continue to monitor volume status CINV (chemotherapy-induced nausea and vomiting) Overview: --Resolved --Ativan PRN (none used) Peripheral pzvybzebxz82 Overview: --gabapentin 300mg TID with increased symptoms, bedtime dose of gabapentin increased to 600mg with improvement reported, continue DVT csdliqhznox32 Overview: --platelet count decreasing, d/c heparin SQ --encourage ambulation Tgwdpyng29 Overview: --ambien PRN at HS, with relief, but with vivid dreams, ambien d/c --restoril at 30mg PRN at HS with relief, continue Chronic chest pain Overview: --now resolved --since Hodgkin lymphoma diagnosis per patient Hospital discharge follow-up Overview: --Patient will need to follow up with Dr. Unger after discharge Yofmlimwwzf53 Overview: --patient taking atenolol 100mg BID at home, now BP running lower, decreased atenolol dose to 50mg BID with hypotension. --increase to 75mg BID, d/t tachycardia(HRs >110 while afebrile), HR now controlled, continue --monitor closely Electrolyte and fluid disorders not elsewhere skwvtheaop84 DISPOSITION AND FOLLOW-UP Overview: 32 yo female from [place], [place]. Family involved with care, at bedside. 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 will start PO pain meds today 10/27. tolerating percocet, pain relatively well controlled. Hodgkin's disease with nodular nfvidccej15 Overview: Oncology history (per Dr. 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 Hodgkin's disease, emeunkzatdq16Vaginal tfqwvoyl52/07/2016 Overview: --likely from thrombocytopenia. No menses in prior 8 months. 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 Premature uydzlsxqo41/07/2016Postmenopausal atrophic obeasnpej72/07/2016 Haksvvodvqq68/07/2016documented as of this encounter (statuses as of 11/13/2021) [facility] History of Past illness Narrative* ProblemNoted Date Resolved DateMenorrhagia with regular cycle Overview: Added automatically from request for surgery [id number] History of pulmonary nmvwslqy92Neoplastic (malignant) related lblnyoi49Hidradenitis syqhoqrcxpi48Vitamin D lxsbmwnlbp58HyperCKemiaElevated aldolase levelChronic pain of both kneesPain in joint, multiple sitesMyalgiaFatigue Malaise and ryrthji73Gastroesophageal reflux disease without ckobsovpncf08Laryngitis02/23/2015 12/26/2015Drug/chem diab w neuro comp w diab autonm (poly)mrqgugigli31/10/2015 12/26/2015Papanicolaou smear of cervix with low grade squamous intraepithelial lesion (LGSIL)Pain in joint, ankle and foot09/27/2014 12/26/2015ASCUS favor xiwycshyk35Visit for gynecologic fexjlwfhxmv39Postmenopausal HRT (hormone replacement therapy) Overview: offered Gait qjhfbdkkfbo97Weakness of both legs Sprain of ankle, leftPCP (pneumocystis jiroveci pneumonia) Acute respiratory failure with vqsngodlc43 Overview: Increased O2 requirement overnight (2L to 5L) - bronchoscopy with BAL/TBLB tomorrow 8 AM. - NPO from midnight - hold tonight dose of lovenox. Radiation ocrauvdhdbj16 Overview: 40 mg prednisone daily Immunodeficiency with predominant T-cell defect, succyeakwtk43 Urgency of bkrmlanotbs66Urinary lsloamojr26 Arm pain, leftBack pain without saymffxip82/19/2014 12/26/2015Abnormal finding on kwcsjvy23Elevated sed rate Hyperpigmentation of skin Overview: --resolved --bilateral breast tissue and axilla --order mycolog cream --monitor Vcibxpbt30 Overview: - c diff pending Mucositis (ulcerative) due to antineoplastic gylqwqb42 Overview: --improved --oxy prn --mouth care measures. Xerhkc30 Overview: --improved with protonix Elevated LFTs Overview: --increased AST ALT during chemo, resolved. Excess fluid rnnrig40 Overview: --diuresis as needed --continue to monitor volume status CINV (chemotherapy-induced nausea and vomiting) Overview: --Resolved --Ativan PRN (none used) Peripheral uamxltpiqz82 Overview: --gabapentin 300mg TID with increased symptoms, bedtime dose of gabapentin increased to 600mg with improvement reported, continue DVT eknboshybhj74 Overview: --platelet count decreasing, d/c heparin SQ --encourage ambulation Wxvbqtpx03 Overview: --ambien PRN at HS, with relief, but with vivid dreams, ambien d/c --restoril at 30mg PRN at HS with relief, continue Chronic chest pain Overview: --now resolved --since Hodgkin lymphoma diagnosis per patient Hospital discharge follow-up Overview: --Patient will need to follow up with Dr. Unger after discharge Omegpmszorl81 Overview: --patient taking atenolol 100mg BID at home, now BP running lower, decreased atenolol dose to 50mg BID with hypotension. --increase to 75mg BID, d/t tachycardia(HRs >110 while afebrile), HR now controlled, continue --monitor closely Electrolyte and fluid disorders not elsewhere eetxdtvcxo66 DISPOSITION AND FOLLOW-UP Overview: 32 yo female from [place]. Family involved with care, at bedside. 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 will start PO pain meds today 10/27. tolerating percocet, pain relatively well controlled. Hodgkin's disease with nodular kuknkfyun73 Overview: Oncology history (per Dr. 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 Hodgkin's disease, ydsjyfwfloo09Vaginal aqmfczwr58/07/2016 Overview: --likely from thrombocytopenia. No menses in prior 8 months. 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 Premature fvbdogkag02/07/2016Postmenopausal atrophic samtlyidd88/07/2016 Zpuqixbbxip41/07/2016documented as of this encounter (statuses as of 11/14/2021) [facility] History of Past illness Narrative* ProblemNoted Date Resolved DateMenorrhagia with regular cycle Overview: Added automatically from request for surgery [id number] History of pulmonary ueqhdggm24Neoplastic (malignant) related wnslfzk64Hidradenitis lyydwligowc03Vitamin D uazdxkmijr85HyperCKemiaElevated aldolase levelChronic pain of both kneesPain in joint, multiple sitesMyalgiaFatigue Malaise and gpveait18Gastroesophageal reflux disease without dwflaydlrez53Laryngitis02/23/2015 12/26/2015Drug/chem diab w neuro comp w diab autonm (poly)zerplxyoyc51/10/2015 12/26/2015Papanicolaou smear of cervix with low grade squamous intraepithelial lesion (LGSIL)Pain in joint, ankle and foot09/27/2014 12/26/2015ASCUS favor bcufcbure77Visit for gynecologic mkuhhgkgzik38Postmenopausal HRT (hormone replacement therapy) Overview: offered Gait decgqwopqpo28Weakness of both legs07/22/ Sprain of ankle, leftPCP (pneumocystis jiroveci pneumonia) Acute respiratory failure with gjkniafxk64 Overview: Increased O2 requirement overnight (2L to 5L) - bronchoscopy with BAL/TBLB tomorrow 8 AM. - NPO from midnight - hold tonight dose of lovenox. Radiation pgpybkcpwgb14 Overview: 40 mg prednisone daily Immunodeficiency with predominant T-cell defect, izscazwbrqk56 Urgency of cgmqmvrnprj92Urinary ucaiigumu16 Arm pain, leftBack pain without dxpxpoeze16/19/2014 12/26/2015Abnormal finding on wrtrtwy41Elevated sed rate Hyperpigmentation of skin Overview: --resolved --bilateral breast tissue and axilla --order mycolog cream --monitor Xamesgoj47 Overview: - c diff pending Mucositis (ulcerative) due to antineoplastic Overview: --improved --oxy prn --mouth care measures. Yfkmek60 Overview: --improved with protonix Elevated LFTs Overview: --increased AST ALT during chemo, resolved. Excess fluid nhbito55 Overview: --diuresis as needed --continue to monitor volume status CINV (chemotherapy-induced nausea and vomiting) Overview: --Resolved --Ativan PRN (none used) Peripheral vmhkapxmhz91 Overview: --gabapentin 300mg TID with increased symptoms, bedtime dose of gabapentin increased to 600mg with improvement reported, continue DVT abisxnieeve95 Overview: --platelet count decreasing, d/c heparin SQ --encourage ambulation Qqpcmpth94 Overview: --ambien PRN at HS, with relief, but with vivid dreams, ambien d/c --restoril at 30mg PRN at HS with relief, continue Chronic chest pain Overview: --now resolved --since Hodgkin lymphoma diagnosis per patient Hospital discharge follow-up Overview: --Patient will need to follow up with Dr. Unger after discharge Eytgixnivzy37/27/ Overview: --patient taking atenolol 100mg BID at home, now BP running lower, decreased atenolol dose to 50mg BID with hypotension. --increase to 75mg BID, d/t tachycardia(HRs >110 while afebrile), HR now controlled, continue --monitor closely Electrolyte and fluid disorders not elsewhere yutiizijeo76 DISPOSITION AND FOLLOW-UP Overview: 32 yo female from [place]. Family involved with care, at bedside. 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 will start PO pain meds today 10/27. tolerating percocet, pain relatively well controlled. Hodgkin's disease with nodular tvtzakojg23 Overview: Oncology history (per Dr. 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 Hodgkin's disease, sdvupvevbja55Vaginal zbjtywxy74/07/2016 Overview: --likely from thrombocytopenia. No menses in prior 8 months. 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 Premature jkaogbnkl08/07/2016Postmenopausal atrophic qcnitiksb16/07/2016 Ggvbhxjqscz39/07/2016documented as of this encounter (statuses as of 11/15/2021) [facility]01-26-2018 History of Past illness Narrative* ProblemNoted Date Resolved DateMenorrhagia with regular cycle Overview: Added automatically from request for surgery [id number] History of pulmonary gigadzrb72Neoplastic (malignant) related fewaoei11Hidradenitis nvcaytpljxk39Vitamin D mvzxaoogir01HyperCKemiaElevated aldolase levelChronic pain of both kneesPain in joint, multiple sitesMyalgiaFatigue Malaise and ocskieu38Gastroesophageal reflux disease without yoagyccmqpf33Laryngitis02/23/2015 12/26/2015Drug/chem diab w neuro comp w diab autonm (poly)henalrufod19/10/2015 12/26/2015Papanicolaou smear of cervix with low grade squamous intraepithelial lesion (LGSIL)Pain in joint, ankle and foot09/27/2014 12/26/2015ASCUS favor umxshhtin66Visit for gynecologic unvlqoyeeoa87Postmenopausal HRT (hormone replacement therapy) Overview: offered Gait xppunwwovyb82Weakness of both legs Sprain of ankle, leftPCP (pneumocystis jiroveci pneumonia) Acute respiratory failure with ltadhgyki38 Overview: Increased O2 requirement overnight (2L to 5L) - bronchoscopy with BAL/TBLB tomorrow 8 AM. - NPO from midnight - hold tonight dose of lovenox. Radiation kkiumusqrwd84 Overview: 40 mg prednisone daily Immunodeficiency with predominant T-cell defect, tczyyhiueha91 Urgency of djiwxwfkfbc55Urinary Arm pain, leftBack pain without /19/2014 12/26/2015Abnormal finding on gpvimas26Elevated sed rate Hyperpigmentation of skin Overview: --resolved --bilateral breast tissue and axilla --order mycolog cream --monitor Cyhsgqze34 Overview: - c diff pending Mucositis (ulcerative) due to antineoplastic rihiekt84 Overview: --improved --oxy prn --mouth care measures. Nrgmgp12 Overview: --improved with protonix Elevated LFTs Overview: --increased AST ALT during chemo, resolved. Excess fluid kypnpk22 Overview: --diuresis as needed --continue to monitor volume status CINV (chemotherapy-induced nausea and vomiting) Overview: --Resolved --Ativan PRN (none used) Peripheral qakwoyifnx91 Overview: --gabapentin 300mg TID with increased symptoms, bedtime dose of gabapentin increased to 600mg with improvement reported, continue DVT hcthvwtkhpo84 Overview: --platelet count decreasing, d/c heparin SQ --encourage ambulation Yddbkbja34 Overview: --ambien PRN at HS, with relief, but with vivid dreams, ambien d/c --restoril at 30mg PRN at HS with relief, continue Chronic chest pain Overview: --now resolved --since Hodgkin lymphoma diagnosis per patient Hospital discharge follow-up Overview: --Patient will need to follow up with Dr. Unger after discharge Piaeistwsta48 Overview: --patient taking atenolol 100mg BID at home, now BP running lower, decreased atenolol dose to 50mg BID with hypotension. --increase to 75mg BID, d/t tachycardia(HRs >110 while afebrile), HR now controlled, continue --monitor closely Electrolyte and fluid disorders not elsewhere tuiyfounlt76 DISPOSITION AND FOLLOW-UP Overview: 32 yo female from [place], [place]. Family involved with care, at bedside. 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 will start PO pain meds today 10/27. tolerating percocet, pain relatively well controlled. Hodgkin's disease with nodular Overview: Oncology history (per Dr. 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 Hodgkin's disease, smcdaqopwce05Vaginal tuhgocjl51/07/2016 Overview: --likely from thrombocytopenia. No menses in prior 8 months. 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 Premature zrtxasrea76/07/2016Postmenopausal atrophic aovujcxhp42/07/2016 Rwgqgbxoeih68/07/2016documented as of this encounter (statuses as of 11/15/2021) [facility]01[facility]2018 History of Past illness Narrative* ProblemNoted Date Resolved DateMenorrhagia with regular cycle Overview: Added automatically from request for surgery [id number] History of pulmonary zncvszvp95Neoplastic (malignant) related rzliyxw78Hidradenitis krqdbzgbvkp30Vitamin D smmxsstzte20HyperCKemiaElevated aldolase levelChronic pain of both kneesPain in joint, multiple sitesMyalgiaFatigue Malaise and gimmitm94/04/Gastroesophageal reflux disease without gffkhlgshaw56Laryngitis02/23/2015 12/26/2015Drug/chem diab w neuro comp w diab autonm (poly)nycwxjmuwg53/10/2015 12/26/2015Papanicolaou smear of cervix with low grade squamous intraepithelial lesion (LGSIL)Pain in joint, ankle and foot09/27/2014 12/26/2015ASCUS favor giynvnaqf11Visit for gynecologic ppqvicebtqv43Postmenopausal HRT (hormone replacement therapy) Overview: offered Gait clvvifklahh96Weakness of both legs Sprain of ankle, leftPCP (pneumocystis jiroveci pneumonia) Acute respiratory failure with Overview: Increased O2 requirement overnight (2L to 5L) - bronchoscopy with BAL/TBLB tomorrow 8 AM. - NPO from midnight - hold tonight dose of lovenox. Radiation kiuqnjvjtda50 Overview: 40 mg prednisone daily Immunodeficiency with predominant T-cell defect, wwlilchrwyr93 Urgency of jayvbwhbcvz26Urinary xpluzuumo00 Arm pain, leftBack pain without fdyhbecdw06/19/2014 12/26/2015Abnormal finding on vfwqssk46Elevated sed rate Hyperpigmentation of skin Overview: --resolved --bilateral breast tissue and axilla --order mycolog cream --monitor Lxrerxyq09 Overview: - c diff pending Mucositis (ulcerative) due to antineoplastic wfxiflx95 Overview: --improved --oxy prn --mouth care measures. Esmfsz50 Overview: --improved with protonix Elevated LFTs Overview: --increased AST ALT during chemo, resolved. Excess fluid Overview: --diuresis as needed --continue to monitor volume status CINV (chemotherapy-induced nausea and vomiting) Overview: --Resolved --Ativan PRN (none used) Peripheral sfjxhlyrdr83 Overview: --gabapentin 300mg TID with increased symptoms, bedtime dose of gabapentin increased to 600mg with improvement reported, continue DVT npdamvpgbhu16 Overview: --platelet count decreasing, d/c heparin SQ --encourage ambulation Yaotmbci77 Overview: --ambien PRN at HS, with relief, but with vivid dreams, ambien d/c --restoril at 30mg PRN at HS with relief, continue Chronic chest pain Overview: --now resolved --since Hodgkin lymphoma diagnosis per patient Hospital discharge follow-up Overview: --Patient will need to follow up with Dr. Unger after discharge Retxccbodpk43 Overview: --patient taking atenolol 100mg BID at home, now BP running lower, decreased atenolol dose to 50mg BID with hypotension. --increase to 75mg BID, d/t tachycardia(HRs >110 while afebrile), HR now controlled, continue --monitor closely Electrolyte and fluid disorders not elsewhere sfhpfhtupa65 DISPOSITION AND FOLLOW-UP Overview: 32 yo female from [place], [place]. Family involved with care, at bedside. 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 will start PO pain meds today 10/27. tolerating percocet, pain relatively well controlled. Hodgkin's disease with nodular upojypiak50 Overview: Oncology history (per Dr. 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 Hodgkin's disease, aozefxxuysl96Vaginal ggchbigq22/07/2016 Overview: --likely from thrombocytopenia. No menses in prior 8 months. 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 Premature mebjehhwx40/07/2016Postmenopausal atrophic mexbchmvp25/07/2016 Zsqnlxfpoih07/07/2016documented as of this encounter (statuses as of 12/04/2021) [facility]2018 History of Past illness Narrative* ProblemNoted Date Resolved DateMenorrhagia with regular cycle Overview: Added automatically from request for surgery [id number] History of pulmonary zogktqbo39Neoplastic (malignant) related qsolxal93Hidradenitis xvgaudatiif67Vitamin D qzttyujtev29HyperCKemiaElevated aldolase levelChronic pain of both kneesPain in joint, multiple sitesMyalgiaFatigue Malaise and icxzhrr07Gastroesophageal reflux disease without ocdhbcxvtkx69Laryngitis02/23/2015 12/26/2015Drug/chem diab w neuro comp w diab autonm (poly)nmhwhhqigh12/10/2015 12/26/2015Papanicolaou smear of cervix with low grade squamous intraepithelial lesion (LGSIL)Pain in joint, ankle and foot09/27/2014 12/26/2015ASCUS favor apfmrnddy68Visit for gynecologic ysjkaodgurw37Postmenopausal HRT (hormone replacement therapy) Overview: offered Gait tcyfvlnqooe05Weakness of both legs Sprain of ankle, leftPCP (pneumocystis jiroveci pneumonia) Acute respiratory failure with inchpqvdu15 Overview: Increased O2 requirement overnight (2L to 5L) - bronchoscopy with BAL/TBLB tomorrow 8 AM. - NPO from midnight - hold tonight dose of lovenox. Radiation xkufrffusqo48 Overview: 40 mg prednisone daily Immunodeficiency with predominant T-cell defect, jvgiicyddzs18 Urgency of ozdkqzurjmy21Urinary tibkycdam64 Arm pain, leftBack pain without xgsosxegn41/19/2014 12/26/2015Abnormal finding on ozrwwww00Elevated sed rate Hyperpigmentation of skin Overview: --resolved --bilateral breast tissue and axilla --order mycolog cream --monitor Kellxrek53 Overview: - c diff pending Mucositis (ulcerative) due to antineoplastic bbycuej66 Overview: --improved --oxy prn --mouth care measures. Opoyph09 Overview: --improved with protonix Elevated LFTs Overview: --increased AST ALT during chemo, resolved. Excess fluid bvpeyn67 Overview: --diuresis as needed --continue to monitor volume status CINV (chemotherapy-induced nausea and vomiting) Overview: --Resolved --Ativan PRN (none used) Peripheral hvgsrbwaso34 Overview: --gabapentin 300mg TID with increased symptoms, bedtime dose of gabapentin increased to 600mg with improvement reported, continue DVT goksksykfxj75 Overview: --platelet count decreasing, d/c heparin SQ --encourage ambulation Ombiidyp62 Overview: --ambien PRN at HS, with relief, but with vivid dreams, ambien d/c --restoril at 30mg PRN at HS with relief, continue Chronic chest pain Overview: --now resolved --since Hodgkin lymphoma diagnosis per patient Hospital discharge follow-up Overview: --Patient will need to follow up with Dr. Unger after discharge Ngndgifmlji32 Overview: --patient taking atenolol 100mg BID at home, now BP running lower, decreased atenolol dose to 50mg BID with hypotension. --increase to 75mg BID, d/t tachycardia(HRs >110 while afebrile), HR now controlled, continue --monitor closely Electrolyte and fluid disorders not elsewhere wrsmkahgfg11 DISPOSITION AND FOLLOW-UP Overview: 32 yo female from [place], [place]. Family involved with care, at bedside. 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 will start PO pain meds today 10/27. tolerating percocet, pain relatively well controlled. Hodgkin's disease with nodular qfytplkxw35 Overview: Oncology history (per Dr. 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 Hodgkin's disease, bgcrlykahyo83Vaginal /07/2016 Overview: --likely from thrombocytopenia. No menses in prior 8 months. 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 Premature rswuhhdij13/07/2016Postmenopausal atrophic oqxoxvkwm23/07/2016 Gggcxkjuhzd99/07/2016documented as of this encounter (statuses as of 12/05/2021) [facility]2018 History of Past illness Narrative* ProblemNoted Date Resolved DateMenorrhagia with regular cycle Overview: Added automatically from request for surgery [id number] History of pulmonary ybqeibof85Neoplastic (malignant) related coyltgy86Hidradenitis otadddsuzmy83Vitamin D squiqdxnra78HyperCKemiaElevated aldolase levelChronic pain of both kneesPain in joint, multiple sitesMyalgiaFatigue Malaise and mtqkocz77Gastroesophageal reflux disease without azholkedgmh86Laryngitis02/23/2015 12/26/2015Drug/chem diab w neuro comp w diab autonm (poly)ibzomifcbn14/10/2015 12/26/2015Papanicolaou smear of cervix with low grade squamous intraepithelial lesion (LGSIL)Pain in joint, ankle and foot09/27/2014 12/26/2015ASCUS favor ctlyrcqzw11Visit for gynecologic mcaivjuvmwl04Postmenopausal HRT (hormone replacement therapy) Overview: offered Gait rnpnkghxduh59Weakness of both legs Sprain of ankle, leftPCP (pneumocystis jiroveci pneumonia) Acute respiratory failure with tfiebelmm06 Overview: Increased O2 requirement overnight (2L to 5L) - bronchoscopy with BAL/TBLB tomorrow 8 AM. - NPO from midnight - hold tonight dose of lovenox. Radiation cxwweundjem16 Overview: 40 mg prednisone daily Immunodeficiency with predominant T-cell defect, hklyzqbbmva38 Urgency of zpgxiauxrkz24Urinary cipakqtld90 Arm pain, leftBack pain without dtuzoxuvd21/19/2014 12/26/2015Abnormal finding on sneqevt22Elevated sed rate Hyperpigmentation of skin Overview: --resolved --bilateral breast tissue and axilla --order mycolog cream --monitor Rfiwxvxm44 Overview: - c diff pending Mucositis (ulcerative) due to antineoplastic wwaexbq84 Overview: --improved --oxy prn --mouth care measures. Twcpao75 Overview: --improved with protonix Elevated LFTs Overview: --increased AST ALT during chemo, resolved. Excess fluid aqygka41 Overview: --diuresis as needed --continue to monitor volume status CINV (chemotherapy-induced nausea and vomiting) Overview: --Resolved --Ativan PRN (none used) Peripheral ahidbpvsvn79 Overview: --gabapentin 300mg TID with increased symptoms, bedtime dose of gabapentin increased to 600mg with improvement reported, continue DVT gkvznyoqnxf97 Overview: --platelet count decreasing, d/c heparin SQ --encourage ambulation Sbztnxer75 Overview: --ambien PRN at HS, with relief, but with vivid dreams, ambien d/c --restoril at 30mg PRN at HS with relief, continue Chronic chest pain Overview: --now resolved --since Hodgkin lymphoma diagnosis per patient Hospital discharge follow-up Overview: --Patient will need to follow up with Dr. Unger after discharge Frusnjciypa46 Overview: --patient taking atenolol 100mg BID at home, now BP running lower, decreased atenolol dose to 50mg BID with hypotension. --increase to 75mg BID, d/t tachycardia(HRs >110 while afebrile), HR now controlled, continue --monitor closely Electrolyte and fluid disorders not elsewhere jiienhbqkm67 DISPOSITION AND FOLLOW-UP Overview: 32 yo female from [place], [place]. Family involved with care, at bedside. 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 will start PO pain meds today 10/27. tolerating percocet, pain relatively well controlled. Hodgkin's disease with nodular fxaoprqpt03 Overview: Oncology history (per Dr. 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 Hodgkin's disease, ihcsncghssj45Vaginal qckpekwy04/07/2016 Overview: --likely from thrombocytopenia. No menses in prior 8 months. 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 Premature kcjarqmko77/07/2016Postmenopausal atrophic htvuashyr13/07/2016 Zysngilmwxo24/07/2016documented as of this encounter (statuses as of 12/06/2021) [facility] History of Past illness Narrative* ProblemNoted Date Resolved DateMenorrhagia with regular cycle Overview: Added automatically from request for surgery [id number] History of pulmonary zbhnngvp60Neoplastic (malignant) related rmzrajl84Hidradenitis cpsnuversud77Vitamin D rpuipwemsw72HyperCKemiaElevated aldolase levelChronic pain of both kneesPain in joint, multiple sitesMyalgiaFatigue Malaise and uqvlczd92Gastroesophageal reflux disease without dovodiyueks27Laryngitis02/23/2015 12/26/2015Drug/chem diab w neuro comp w diab autonm (poly)wjgnwhhopi74/10/2015 12/26/2015Papanicolaou smear of cervix with low grade squamous intraepithelial lesion (LGSIL)Pain in joint, ankle and foot09/27/2014 12/26/2015ASCUS favor sloslcasv83Visit for gynecologic jmanylknxmd36Postmenopausal HRT (hormone replacement therapy) Overview: offered Gait vckxjelvcsn18Weakness of both legs Sprain of ankle, leftPCP (pneumocystis jiroveci pneumonia) Acute respiratory failure with ihzogakmq33 Overview: Increased O2 requirement overnight (2L to 5L) - bronchoscopy with BAL/TBLB tomorrow 8 AM. - NPO from midnight - hold tonight dose of lovenox. Radiation sowdeqclzwr42 Overview: 40 mg prednisone daily Immunodeficiency with predominant T-cell defect, bdiexctejly90 Urgency of shkmeasnaoy76Urinary hyujnaepb40 Arm pain, leftBack pain without ieqhshvqk73/19/2014 12/26/2015Abnormal finding on spkuufv74Elevated sed rate Hyperpigmentation of skin Overview: --resolved --bilateral breast tissue and axilla --order mycolog cream --monitor Rcuclesr28 Overview: - c diff pending Mucositis (ulcerative) due to antineoplastic ragxioq45 Overview: --improved --oxy prn --mouth care measures. Fkciai17 Overview: --improved with protonix Elevated LFTs Overview: --increased AST ALT during chemo, resolved. Excess fluid bmmhxy41 Overview: --diuresis as needed --continue to monitor volume status CINV (chemotherapy-induced nausea and vomiting) Overview: --Resolved --Ativan PRN (none used) Peripheral qeejaeiavg88 Overview: --gabapentin 300mg TID with increased symptoms, bedtime dose of gabapentin increased to 600mg with improvement reported, continue DVT tfjinuvlhyx58 Overview: --platelet count decreasing, d/c heparin SQ --encourage ambulation Bbpmgjmi41 Overview: --ambien PRN at HS, with relief, but with vivid dreams, ambien d/c --restoril at 30mg PRN at HS with relief, continue Chronic chest pain Overview: --now resolved --since Hodgkin lymphoma diagnosis per patient Hospital discharge follow-up Overview: --Patient will need to follow up with Dr. Unger after discharge Owscjfxwuua22 Overview: --patient taking atenolol 100mg BID at home, now BP running lower, decreased atenolol dose to 50mg BID with hypotension. --increase to 75mg BID, d/t tachycardia(HRs >110 while afebrile), HR now controlled, continue --monitor closely Electrolyte and fluid disorders not elsewhere ukpmbueeql91 DISPOSITION AND FOLLOW-UP Overview: 32 yo female from [place]. Family involved with care, at bedside. 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 will start PO pain meds today 10/27. tolerating percocet, pain relatively well controlled. Hodgkin's disease with nodular cilmspcld08 Overview: Oncology history (per Dr. 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 Hodgkin's disease, gzixiowverh08Vaginal ysyawfah26/07/2016 Overview: --likely from thrombocytopenia. No menses in prior 8 months. 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 Premature mnkvdkezo36/07/2016Postmenopausal atrophic wazeunirk89/07/2016 Qslxdenmmqh63/07/2016documented as of this encounter (statuses as of 12/07/2021) [facility] History of Past illness Narrative* ProblemNoted Date Resolved DateMenorrhagia with regular cycle Overview: Added automatically from request for surgery [id number] History of pulmonary frwxfxgd52Neoplastic (malignant) related iuixtdc60Hidradenitis kwibbafejrp30Vitamin D bwriqanccm52HyperCKemiaElevated aldolase levelChronic pain of both kneesPain in joint, multiple sitesMyalgiaFatigue Malaise and ejfynkl46Gastroesophageal reflux disease without zuegcetlddx02Laryngitis02/23/2015 12/26/2015Drug/chem diab w neuro comp w diab autonm (poly)mgjhtumded07/10/2015 12/26/2015Papanicolaou smear of cervix with low grade squamous intraepithelial lesion (LGSIL)Pain in joint, ankle and foot09/27/2014 12/26/2015ASCUS favor rswbnikbc78Visit for gynecologic fzdxxkmtpds13Postmenopausal HRT (hormone replacement therapy) Overview: offered Gait rppemflvtpo83Weakness of both legs Sprain of ankle, leftPCP (pneumocystis jiroveci pneumonia) Acute respiratory failure with wfmeeugku75 Overview: Increased O2 requirement overnight (2L to 5L) - bronchoscopy with BAL/TBLB tomorrow 8 AM. - NPO from midnight - hold tonight dose of lovenox. Radiation tewkrgrdluf28 Overview: 40 mg prednisone daily Immunodeficiency with predominant T-cell defect, dyemijmiqxh91 Urgency of todedngefvt35Urinary knfcscowc42 Arm pain, leftBack pain without svmbjeeor66/19/2014 12/26/2015Abnormal finding on rglcvok61Elevated sed rate Hyperpigmentation of skin Overview: --resolved --bilateral breast tissue and axilla --order mycolog cream --monitor Tkjbeuun81 Overview: - c diff pending Mucositis (ulcerative) due to antineoplastic ppneecj35 Overview: --improved --oxy prn --mouth care measures. Oigpxl98 Overview: --improved with protonix Elevated LFTs Overview: --increased AST ALT during chemo, resolved. Excess fluid xsgijl27 Overview: --diuresis as needed --continue to monitor volume status CINV (chemotherapy-induced nausea and vomiting) Overview: --Resolved --Ativan PRN (none used) Peripheral jngfxdrdna67 Overview: --gabapentin 300mg TID with increased symptoms, bedtime dose of gabapentin increased to 600mg with improvement reported, continue DVT aywctgktljy27 Overview: --platelet count decreasing, d/c heparin SQ --encourage ambulation Qscgolpn60 Overview: --ambien PRN at HS, with relief, but with vivid dreams, ambien d/c --restoril at 30mg PRN at HS with relief, continue Chronic chest pain Overview: --now resolved --since Hodgkin lymphoma diagnosis per patient Hospital discharge follow-up Overview: --Patient will need to follow up with Dr. Unger after discharge Iaygywqghss67 Overview: --patient taking atenolol 100mg BID at home, now BP running lower, decreased atenolol dose to 50mg BID with hypotension. --increase to 75mg BID, d/t tachycardia(HRs >110 while afebrile), HR now controlled, continue --monitor closely Electrolyte and fluid disorders not elsewhere cgbnzqyagw95 DISPOSITION AND FOLLOW-UP Overview: 32 yo female from [place]. Family involved with care, at bedside. 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 will start PO pain meds today 10/27. tolerating percocet, pain relatively well controlled. Hodgkin's disease with nodular hpiijfgjc46 Overview: Oncology history (per Dr. 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 Hodgkin's disease, pavqqygdugl05/18/086590/24/2015Vaginal mnpeczzw57/07/2016 Overview: --likely from thrombocytopenia. No menses in prior 8 months. 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 Premature loucoszmg32/07/2016Postmenopausal atrophic hbeguerkk55/07/2016 Kkvvfclmxzk21/07/2016documented as of this encounter (statuses as of 12/12/2021) [facility]2018 History of Past illness Narrative* ProblemNoted Date Resolved DateMenorrhagia with regular cycle Overview: Added automatically from request for surgery [id number] History of pulmonary amavdoot25Neoplastic (malignant) related povxcec29Hidradenitis zrqygoebmpn74Vitamin D dennfrjylo67HyperCKemiaElevated aldolase levelChronic pain of both kneesPain in joint, multiple sitesMyalgiaFatigue Malaise and tuojkdk98Gastroesophageal reflux disease without wpfwysglurq28Laryngitis02/23/2015 12/26/2015Drug/chem diab w neuro comp w diab autonm (poly)kqpqpafcmj50/10/2015 12/26/2015Papanicolaou smear of cervix with low grade squamous intraepithelial lesion (LGSIL)Pain in joint, ankle and foot09/27/2014 12/26/2015ASCUS favor tcblbymyz01Visit for gynecologic nbkenpawczo94Postmenopausal HRT (hormone replacement therapy) Overview: offered Gait kfsutvbecdq08Weakness of both legs Sprain of ankle, leftPCP (pneumocystis jiroveci pneumonia) Acute respiratory failure with mltqcxudl61 Overview: Increased O2 requirement overnight (2L to 5L) - bronchoscopy with BAL/TBLB tomorrow 8 AM. - NPO from midnight - hold tonight dose of lovenox. Radiation ocmgcvdyhfz54 Overview: 40 mg prednisone daily Immunodeficiency with predominant T-cell defect, ftxpggjurwu98 Urgency of ztleeyrrnpy92Urinary lwvctmxuu43 Arm pain, leftBack pain without tvveqvylc21/19/2014 12/26/2015Abnormal finding on sfcitlm15Elevated sed rate Hyperpigmentation of skin Overview: --resolved --bilateral breast tissue and axilla --order mycolog cream --monitor Smpvfrno61 Overview: - c diff pending Mucositis (ulcerative) due to antineoplastic tqcjtom67 Overview: --improved --oxy prn --mouth care measures. Csxltv49 Overview: --improved with protonix Elevated LFTs Overview: --increased AST ALT during chemo, resolved. Excess fluid Overview: --diuresis as needed --continue to monitor volume status CINV (chemotherapy-induced nausea and vomiting) Overview: --Resolved --Ativan PRN (none used) Peripheral bctejdqtsa51 Overview: --gabapentin 300mg TID with increased symptoms, bedtime dose of gabapentin increased to 600mg with improvement reported, continue DVT pukrxihwfgx56 Overview: --platelet count decreasing, d/c heparin SQ --encourage ambulation Pszmesxe13 Overview: --ambien PRN at HS, with relief, but with vivid dreams, ambien d/c --restoril at 30mg PRN at HS with relief, continue Chronic chest pain Overview: --now resolved --since Hodgkin lymphoma diagnosis per patient Hospital discharge follow-up Overview: --Patient will need to follow up with Dr. Unger after discharge Plzgaymwlib71 Overview: --patient taking atenolol 100mg BID at home, now BP running lower, decreased atenolol dose to 50mg BID with hypotension. --increase to 75mg BID, d/t tachycardia(HRs >110 while afebrile), HR now controlled, continue --monitor closely Electrolyte and fluid disorders not elsewhere itxhlaxpdl97 DISPOSITION AND FOLLOW-UP Overview: 32 yo female from [place], [place]. Family involved with care, at bedside. 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 will start PO pain meds today 10/27. tolerating percocet, pain relatively well controlled. Hodgkin's disease with nodular asgacriif01 Overview: Oncology history (per Dr. 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 Hodgkin's disease, tmdptovflwz60Vaginal rkvqacst58/07/2016 Overview: --likely from thrombocytopenia. No menses in prior 8 months. 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 Premature plpmcqpym60/07/2016Postmenopausal atrophic orozrlaln49/07/2016 Sxaqtporggm12/07/2016documented as of this encounter (statuses as of 12/18/2021) [facility] History of Past illness Narrative* ProblemNoted Date Resolved DateMenorrhagia with regular cycle Overview: Added automatically from request for surgery [id number] History of pulmonary tiliixyq24Neoplastic (malignant) related yzlwbnx97Hidradenitis bovaxwtcvpd46Vitamin D vbeoxpvkkh77HyperCKemiaElevated aldolase levelChronic pain of both kneesPain in joint, multiple sitesMyalgiaFatigue Malaise and tproqxg44Gastroesophageal reflux disease without jptyhmjezui14Laryngitis02/23/2015 12/26/2015Drug/chem diab w neuro comp w diab autonm (poly)qofwleljbd25/10/2015 12/26/2015Papanicolaou smear of cervix with low grade squamous intraepithelial lesion (LGSIL)Pain in joint, ankle and foot09/27/2014 12/26/2015ASCUS favor dwongkaxm81Visit for gynecologic gdblljxafhc80Postmenopausal HRT (hormone replacement therapy) Overview: offered Gait afotrvvxfim81Weakness of both legs Sprain of ankle, leftPCP (pneumocystis jiroveci pneumonia) Acute respiratory failure with bqzkfdzpe01 Overview: Increased O2 requirement overnight (2L to 5L) - bronchoscopy with BAL/TBLB tomorrow 8 AM. - NPO from midnight - hold tonight dose of lovenox. Radiation uwpkgnpiqgf29 Overview: 40 mg prednisone daily Immunodeficiency with predominant T-cell defect, ockbqvnavlc86 Urgency of umdklunfotl94Urinary Arm pain, leftBack pain without sezuvpzoh68/19/2014 12/26/2015Abnormal finding on dlyaial75Elevated sed rate Hyperpigmentation of skin Overview: --resolved --bilateral breast tissue and axilla --order mycolog cream --monitor Ygkerqbd55 Overview: - c diff pending Mucositis (ulcerative) due to antineoplastic mogwvmp24 Overview: --improved --oxy prn --mouth care measures. Hjtisl80 Overview: --improved with protonix Elevated LFTs Overview: --increased AST ALT during chemo, resolved. Excess fluid vzqalv47 Overview: --diuresis as needed --continue to monitor volume status CINV (chemotherapy-induced nausea and vomiting) Overview: --Resolved --Ativan PRN (none used) Peripheral wnugldhvna31 Overview: --gabapentin 300mg TID with increased symptoms, bedtime dose of gabapentin increased to 600mg with improvement reported, continue DVT ngewqabczkj02 Overview: --platelet count decreasing, d/c heparin SQ --encourage ambulation Noeefbgf23 Overview: --ambien PRN at HS, with relief, but with vivid dreams, ambien d/c --restoril at 30mg PRN at HS with relief, continue Chronic chest pain Overview: --now resolved --since Hodgkin lymphoma diagnosis per patient Hospital discharge follow-up Overview: --Patient will need to follow up with Dr. Unger after discharge Bvjkvttcmez26 Overview: --patient taking atenolol 100mg BID at home, now BP running lower, decreased atenolol dose to 50mg BID with hypotension. --increase to 75mg BID, d/t tachycardia(HRs >110 while afebrile), HR now controlled, continue --monitor closely Electrolyte and fluid disorders not elsewhere DISPOSITION AND FOLLOW-UP Overview: 32 yo female from [place], [place]. Family involved with care, at bedside. 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 will start PO pain meds today 10/27. tolerating percocet, pain relatively well controlled. Hodgkin's disease with nodular pujwbvjgw65 Overview: Oncology history (per Dr. 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 Hodgkin's disease, qhjcvloxsvs67Vaginal zovcwmet83/07/2016 Overview: --likely from thrombocytopenia. No menses in prior 8 months. 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 Premature rozvaraac39/07/2016Postmenopausal atrophic /07/2016 Xzpxentritu26/07/2016documented as of this encounter (statuses as of 12/19/2021) [facility] History of Past illness Narrative* ProblemNoted Date Resolved DateMenorrhagia with regular cycle Overview: Added automatically from request for surgery [id number] History of pulmonary dkskznnd00Neoplastic (malignant) related gplioji58Hidradenitis qmmazgpxfsh27Vitamin D niicstsqbz24HyperCKemiaElevated aldolase levelChronic pain of both kneesPain in joint, multiple sitesMyalgiaFatigue Malaise and uqmppfp97Gastroesophageal reflux disease without mcjusinsuau61Laryngitis02/23/2015 12/26/2015Drug/chem diab w neuro comp w diab autonm (poly)ywlcomzfwz35/10/2015 12/26/2015Papanicolaou smear of cervix with low grade squamous intraepithelial lesion (LGSIL)Pain in joint, ankle and foot09/27/2014 12/26/2015ASCUS favor dskseukqg54Visit for gynecologic jysuupoxtss66Postmenopausal HRT (hormone replacement therapy) Overview: offered Gait zakwtbbogoe48Weakness of both legs Sprain of ankle, leftPCP (pneumocystis jiroveci pneumonia) Acute respiratory failure with ecchipfjl09 Overview: Increased O2 requirement overnight (2L to 5L) - bronchoscopy with BAL/TBLB tomorrow 8 AM. - NPO from midnight - hold tonight dose of lovenox. Radiation vjykikgcalx58 Overview: 40 mg prednisone daily Immunodeficiency with predominant T-cell defect, rityximdmkd59 Urgency of frtuxdtxisb44Urinary kijevpegv42 Arm pain, leftBack pain without /19/2014 12/26/2015Abnormal finding on gmahfuu08Elevated sed rate Hyperpigmentation of skin Overview: --resolved --bilateral breast tissue and axilla --order mycolog cream --monitor Dyjodrpa14 Overview: - c diff pending Mucositis (ulcerative) due to antineoplastic pulrvtv11 Overview: --improved --oxy prn --mouth care measures. Qgpodv48 Overview: --improved with protonix Elevated LFTs Overview: --increased AST ALT during chemo, resolved. Excess fluid upuuqt11 Overview: --diuresis as needed --continue to monitor volume status CINV (chemotherapy-induced nausea and vomiting) Overview: --Resolved --Ativan PRN (none used) Peripheral sqjmhuywok66 Overview: --gabapentin 300mg TID with increased symptoms, bedtime dose of gabapentin increased to 600mg with improvement reported, continue DVT sqcqndggltu85 Overview: --platelet count decreasing, d/c heparin SQ --encourage ambulation Rtjebqdf30 Overview: --ambien PRN at HS, with relief, but with vivid dreams, ambien d/c --restoril at 30mg PRN at HS with relief, continue Chronic chest pain Overview: --now resolved --since Hodgkin lymphoma diagnosis per patient Hospital discharge follow-up Overview: --Patient will need to follow up with Dr. Unger after discharge Hhghckkeqrx47 Overview: --patient taking atenolol 100mg BID at home, now BP running lower, decreased atenolol dose to 50mg BID with hypotension. --increase to 75mg BID, d/t tachycardia(HRs >110 while afebrile), HR now controlled, continue --monitor closely Electrolyte and fluid disorders not elsewhere icjqdfyqjf63 DISPOSITION AND FOLLOW-UP Overview: 32 yo female from [place], [place]. Family involved with care, at bedside. 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 will start PO pain meds today 10/27. tolerating percocet, pain relatively well controlled. Hodgkin's disease with nodular nrjcctyui97 Overview: Oncology history (per Dr. 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 Hodgkin's disease, tlscalqnzdo99Vaginal hyhvntgo97/07/2016 Overview: --likely from thrombocytopenia. No menses in prior 8 months. 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 Premature eojskvhar61/07/2016Postmenopausal atrophic jhejsebvh04/07/2016 Jdzvnssxume26/07/2016documented as of this encounter (statuses as of 12/27/2021) [facility] History of Past illness Narrative* ProblemNoted Date Resolved DateMenorrhagia with regular cycle Overview: Added automatically from request for surgery [id number] History of pulmonary aerqlpwc01Neoplastic (malignant) related curpsam19Hidradenitis fzieedigkan50Vitamin D miejndnwij05HyperCKemiaElevated aldolase levelChronic pain of both kneesPain in joint, multiple sitesMyalgiaFatigue Malaise and hbhfcqk55Gastroesophageal reflux disease without elpcnbbzbrn35Laryngitis02/23/2015 12/26/2015Drug/chem diab w neuro comp w diab autonm (poly)lfvjqnufjh87/10/2015 12/26/2015Papanicolaou smear of cervix with low grade squamous intraepithelial lesion (LGSIL)Pain in joint, ankle and foot09/27/2014 12/26/2015ASCUS favor djlqadljj34Visit for gynecologic euwbiraahff64Postmenopausal HRT (hormone replacement therapy) Overview: offered Gait mtahtkivjrl91Weakness of both legs Sprain of ankle, leftPCP (pneumocystis jiroveci pneumonia) Acute respiratory failure with Overview: Increased O2 requirement overnight (2L to 5L) - bronchoscopy with BAL/TBLB tomorrow 8 AM. - NPO from midnight - hold tonight dose of lovenox. Radiation cftuwoepbxe44 Overview: 40 mg prednisone daily Immunodeficiency with predominant T-cell defect, qjowaxnwgrr27 Urgency of ejjqdpvxhuq91Urinary kzkfrzazz56 Arm pain, leftBack pain without drxylwknn98/19/2014 12/26/2015Abnormal finding on nuhtelb55Elevated sed rate Hyperpigmentation of skin Overview: --resolved --bilateral breast tissue and axilla --order mycolog cream --monitor Zoowjcvt42 Overview: - c diff pending Mucositis (ulcerative) due to antineoplastic iabaajr31 Overview: --improved --oxy prn --mouth care measures. Beahwk20 Overview: --improved with protonix Elevated LFTs Overview: --increased AST ALT during chemo, resolved. Excess fluid ckltse99 Overview: --diuresis as needed --continue to monitor volume status CINV (chemotherapy-induced nausea and vomiting) Overview: --Resolved --Ativan PRN (none used) Peripheral Overview: --gabapentin 300mg TID with increased symptoms, bedtime dose of gabapentin increased to 600mg with improvement reported, continue DVT rvkkiqpnuhk94 Overview: --platelet count decreasing, d/c heparin SQ --encourage ambulation Plurfqvk06 Overview: --ambien PRN at HS, with relief, but with vivid dreams, ambien d/c --restoril at 30mg PRN at HS with relief, continue Chronic chest pain Overview: --now resolved --since Hodgkin lymphoma diagnosis per patient Hospital discharge follow-up Overview: --Patient will need to follow up with Dr. Unger after discharge Hacrcyqowxl74 Overview: --patient taking atenolol 100mg BID at home, now BP running lower, decreased atenolol dose to 50mg BID with hypotension. --increase to 75mg BID, d/t tachycardia(HRs >110 while afebrile), HR now controlled, continue --monitor closely Electrolyte and fluid disorders not elsewhere vwpalbucsz48 DISPOSITION AND FOLLOW-UP Overview: 32 yo female from [place], [place]. Family involved with care, at bedside. 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 will start PO pain meds today 10/27. tolerating percocet, pain relatively well controlled. Hodgkin's disease with nodular Overview: Oncology history (per Dr. 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 Hodgkin's disease, aonxvdymqoa29Vaginal afkedmyh64/07/2016 Overview: --likely from thrombocytopenia. No menses in prior 8 months. 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 Premature xgxgvhtib48/07/2016Postmenopausal atrophic jqqfxjbsi67/07/2016 Bqwuwwvzfqj90/07/2016documented as of this encounter (statuses as of 12/31/2021) [facility] History of Past illness Narrative* ProblemNoted Date Resolved DateMenorrhagia with regular cycle Overview: Added automatically from request for surgery [id number] History of pulmonary wfzlkpxx36Neoplastic (malignant) related esvibof89Hidradenitis fdxcputfdlw58Vitamin D youevbsbpr60HyperCKemiaElevated aldolase levelChronic pain of both kneesPain in joint, multiple sitesMyalgiaFatigue Malaise and qzrocgy87Gastroesophageal reflux disease without qjczxtqqkff93Laryngitis02/23/2015 12/26/2015Drug/chem diab w neuro comp w diab autonm (poly)/10/2015 12/26/2015Papanicolaou smear of cervix with low grade squamous intraepithelial lesion (LGSIL)Pain in joint, ankle and foot09/27/2014 12/26/2015ASCUS favor yibjjqjul71Visit for gynecologic hmkjwxqhgan87Postmenopausal HRT (hormone replacement therapy) Overview: offered Gait xwoyhzwrtzg52Weakness of both legs Sprain of ankle, leftPCP (pneumocystis jiroveci pneumonia) Acute respiratory failure with jclwjskeb12 Overview: Increased O2 requirement overnight (2L to 5L) - bronchoscopy with BAL/TBLB tomorrow 8 AM. - NPO from midnight - hold tonight dose of lovenox. Radiation ihrpketszkr31 Overview: 40 mg prednisone daily Immunodeficiency with predominant T-cell defect, lqymqkrqkon81 Urgency of izxkygdzlyf28Urinary ekryxhmpt99 Arm pain, leftBack pain without pcntsuauc90/19/2014 12/26/2015Abnormal finding on kdcgstq47Elevated sed rate Hyperpigmentation of skin Overview: --resolved --bilateral breast tissue and axilla --order mycolog cream --monitor Bytpzgpx97 Overview: - c diff pending Mucositis (ulcerative) due to antineoplastic deiiwym69 Overview: --improved --oxy prn --mouth care measures. Ahtvfa77 Overview: --improved with protonix Elevated LFTs Overview: --increased AST ALT during chemo, resolved. Excess fluid vtbnec22 Overview: --diuresis as needed --continue to monitor volume status CINV (chemotherapy-induced nausea and vomiting) Overview: --Resolved --Ativan PRN (none used) Peripheral hafjxqvcbu04 Overview: --gabapentin 300mg TID with increased symptoms, bedtime dose of gabapentin increased to 600mg with improvement reported, continue DVT ujlwjttxciz93 Overview: --platelet count decreasing, d/c heparin SQ --encourage ambulation Yvgvbkmi45 Overview: --ambien PRN at HS, with relief, but with vivid dreams, ambien d/c --restoril at 30mg PRN at HS with relief, continue Chronic chest pain Overview: --now resolved --since Hodgkin lymphoma diagnosis per patient Hospital discharge follow-up Overview: --Patient will need to follow up with Dr. Unger after discharge Cmadcdzlcai08 Overview: --patient taking atenolol 100mg BID at home, now BP running lower, decreased atenolol dose to 50mg BID with hypotension. --increase to 75mg BID, d/t tachycardia(HRs >110 while afebrile), HR now controlled, continue --monitor closely Electrolyte and fluid disorders not elsewhere zlanypzgum86 DISPOSITION AND FOLLOW-UP Overview: 32 yo female from [place], [place]. Family involved with care, at bedside. 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 will start PO pain meds today 10/27. tolerating percocet, pain relatively well controlled. Hodgkin's disease with nodular tabgudbvi65 Overview: Oncology history (per Dr. 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 Hodgkin's disease, yrvaguuutfz14Vaginal sqytijwt12/07/2016 Overview: --likely from thrombocytopenia. No menses in prior 8 months. 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 Premature kocfjsgin45/07/2016Postmenopausal atrophic nfmzrfkja28/07/2016 Giiweocgzge04/07/2016documented as of this encounter (statuses as of 01/08/2022) [facility] History of Past illness Narrative* ProblemNoted Date Resolved DateMenorrhagia with regular cycle Overview: Added automatically from request for surgery [id number] History of pulmonary sqistafv75Neoplastic (malignant) related vgxatyp24Hidradenitis utcpvyetlpm82Vitamin D qnunzfinye37HyperCKemiaElevated aldolase levelChronic pain of both kneesPain in joint, multiple sitesMyalgiaFatigue Malaise and ghwmcux14Gastroesophageal reflux disease without epyfawrgknt46Laryngitis02/23/2015 12/26/2015Drug/chem diab w neuro comp w diab autonm (poly)yfgdczynjh84/10/2015 12/26/2015Papanicolaou smear of cervix with low grade squamous intraepithelial lesion (LGSIL)Pain in joint, ankle and foot09/27/2014 12/26/2015ASCUS favor qorkcwurj04Visit for gynecologic ahkrxqtimco16Postmenopausal HRT (hormone replacement therapy) Overview: offered Gait wcfbgduovou69Weakness of both legs Sprain of ankle, left05/12/633414/07/2016PCP (pneumocystis jiroveci pneumonia) Acute respiratory failure with fdepttgtx94 Overview: Increased O2 requirement overnight (2L to 5L) - bronchoscopy with BAL/TBLB tomorrow 8 AM. - NPO from midnight - hold tonight dose of lovenox. Radiation snkjngdedpe27 Overview: 40 mg prednisone daily Immunodeficiency with predominant T-cell defect, ecjpywualld23 Urgency of xkpragdundn49Urinary ftvarrtjo30 Arm pain, leftBack pain without mzboecpkd86/19/2014 12/26/2015Abnormal finding on chomgzy34Elevated sed rate Hyperpigmentation of skin Overview: --resolved --bilateral breast tissue and axilla --order mycolog cream --monitor Phxxvxbt92 Overview: - c diff pending Mucositis (ulcerative) due to antineoplastic uvsuzee07 Overview: --improved --oxy prn --mouth care measures. Wijwbs71 Overview: --improved with protonix Elevated LFTs Overview: --increased AST ALT during chemo, resolved. Excess fluid tvonno88 Overview: --diuresis as needed --continue to monitor volume status CINV (chemotherapy-induced nausea and vomiting) Overview: --Resolved --Ativan PRN (none used) Peripheral cwyyflhnuj53 Overview: --gabapentin 300mg TID with increased symptoms, bedtime dose of gabapentin increased to 600mg with improvement reported, continue DVT wgqsmldusic43 Overview: --platelet count decreasing, d/c heparin SQ --encourage ambulation Lryotgtp61 Overview: --ambien PRN at HS, with relief, but with vivid dreams, ambien d/c --restoril at 30mg PRN at HS with relief, continue Chronic chest pain Overview: --now resolved --since Hodgkin lymphoma diagnosis per patient Hospital discharge follow-up Overview: --Patient will need to follow up with Dr. Unger after discharge Lutwdbtexqm18 Overview: --patient taking atenolol 100mg BID at home, now BP running lower, decreased atenolol dose to 50mg BID with hypotension. --increase to 75mg BID, d/t tachycardia(HRs >110 while afebrile), HR now controlled, continue --monitor closely Electrolyte and fluid disorders not elsewhere DISPOSITION AND FOLLOW-UP Overview: 32 yo female from [place], [place]. Family involved with care, at bedside. 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 will start PO pain meds today 10/27. tolerating percocet, pain relatively well controlled. Hodgkin's disease with nodular xlnqghzze11 Overview: Oncology history (per Dr. 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 Hodgkin's disease, gmpvnemlreo56Vaginal vkwfmqpo64/07/2016 Overview: --likely from thrombocytopenia. No menses in prior 8 months. 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 Premature taizqvspf67/07/2016Postmenopausal atrophic cfbwbyftn81/07/2016 Hsagrbwdwqc61/07/2016documented as of this encounter (statuses as of 01/16/2022) [facility] History of Past illness Narrative* ProblemNoted Date Resolved DateMenorrhagia with regular cycle Overview: Added automatically from request for surgery [id number] History of pulmonary gjpypmsq95Neoplastic (malignant) related xkvbfge34Hidradenitis vhiqlydjthr67Vitamin D vwkhzhnlgb57HyperCKemiaElevated aldolase levelChronic pain of both kneesPain in joint, multiple sitesMyalgiaFatigue Malaise and wrvjdod54Gastroesophageal reflux disease without nbvbpdkwaxv63Laryngitis02/23/2015 12/26/2015Drug/chem diab w neuro comp w diab autonm (poly)jdticdquaz18/10/2015 12/26/2015Papanicolaou smear of cervix with low grade squamous intraepithelial lesion (LGSIL)Pain in joint, ankle and foot09/27/2014 12/26/2015ASCUS favor sjhkevcew04Visit for gynecologic wgpdqfxumdy34Postmenopausal HRT (hormone replacement therapy) Overview: offered Gait rjxmmxhtpqj85Weakness of both legs Sprain of ankle, leftPCP (pneumocystis jiroveci pneumonia) Acute respiratory failure with eedeuulkc43 Overview: Increased O2 requirement overnight (2L to 5L) - bronchoscopy with BAL/TBLB tomorrow 8 AM. - NPO from midnight - hold tonight dose of lovenox. Radiation gwjtfclrhuf83 Overview: 40 mg prednisone daily Immunodeficiency with predominant T-cell defect, dqmbytoompe28 Urgency of vkxtjlweftx72Urinary rvwnoyrvv33 Arm pain, leftBack pain without vwaggiyug98/19/2014 12/26/2015Abnormal finding on odchudb56Elevated sed rate Hyperpigmentation of skin Overview: --resolved --bilateral breast tissue and axilla --order mycolog cream --monitor Bevilvfc58 Overview: - c diff pending Mucositis (ulcerative) due to antineoplastic oqlpwxj82 Overview: --improved --oxy prn --mouth care measures. Bdugrm08 Overview: --improved with protonix Elevated LFTs Overview: --increased AST ALT during chemo, resolved. Excess fluid xidnpv62 Overview: --diuresis as needed --continue to monitor volume status CINV (chemotherapy-induced nausea and vomiting) Overview: --Resolved --Ativan PRN (none used) Peripheral Overview: --gabapentin 300mg TID with increased symptoms, bedtime dose of gabapentin increased to 600mg with improvement reported, continue DVT yqllvrrirjr47 Overview: --platelet count decreasing, d/c heparin SQ --encourage ambulation Xcywqusk59 Overview: --ambien PRN at HS, with relief, but with vivid dreams, ambien d/c --restoril at 30mg PRN at HS with relief, continue Chronic chest pain Overview: --now resolved --since Hodgkin lymphoma diagnosis per patient Hospital discharge follow-up Overview: --Patient will need to follow up with Dr. Unger after discharge Zqbqygdddpk99 Overview: --patient taking atenolol 100mg BID at home, now BP running lower, decreased atenolol dose to 50mg BID with hypotension. --increase to 75mg BID, d/t tachycardia(HRs >110 while afebrile), HR now controlled, continue --monitor closely Electrolyte and fluid disorders not elsewhere ywetxlwqkn83 DISPOSITION AND FOLLOW-UP Overview: 32 yo female from [place], [place]. Family involved with care, at bedside. 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 will start PO pain meds today 10/27. tolerating percocet, pain relatively well controlled. Hodgkin's disease with nodular gffjurkaf25 Overview: Oncology history (per Dr. 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 Hodgkin's disease, wygndaqftcq96Vaginal djzyokhi80/07/2016 Overview: --likely from thrombocytopenia. No menses in prior 8 months. 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 Premature vgiucbefh63/07/2016Postmenopausal atrophic izrcdiboc79/07/2016 Eiiitiecftl53/07/2016documented as of this encounter (statuses as of 01/16/2022) [facility]01[facility]2018 History of Past illness Narrative* ProblemNoted Date Resolved DateMenorrhagia with regular cycle Overview: Added automatically from request for surgery [id number] History of pulmonary honhimar02Neoplastic (malignant) related fhqvzci68Hidradenitis mfnzgoenyth57Vitamin D asyyzzhjsw96HyperCKemiaElevated aldolase levelChronic pain of both kneesPain in joint, multiple sitesMyalgiaFatigue Malaise and hxrecty13Gastroesophageal reflux disease without rndynuidvhz13Laryngitis02/23/2015 12/26/2015Drug/chem diab w neuro comp w diab autonm (poly)trqotolygn84/10/2015 12/26/2015Papanicolaou smear of cervix with low grade squamous intraepithelial lesion (LGSIL)Pain in joint, ankle and foot09/27/2014 12/26/2015ASCUS favor buyqlcpiv21Visit for gynecologic dkmyhlrnmwa75Postmenopausal HRT (hormone replacement therapy) Overview: offered Gait gdsxzhojzad80Weakness of both legs Sprain of ankle, leftPCP (pneumocystis jiroveci pneumonia) Acute respiratory failure with Overview: Increased O2 requirement overnight (2L to 5L) - bronchoscopy with BAL/TBLB tomorrow 8 AM. - NPO from midnight - hold tonight dose of lovenox. Radiation nufhsrlsffh71 Overview: 40 mg prednisone daily Immunodeficiency with predominant T-cell defect, rlowuqbiygn65 Urgency of jvgrvhnaall51Urinary ovuzvazqb52 Arm pain, leftBack pain without pwldjtfly22/19/2014 12/26/2015Abnormal finding on ddfqqoi42Elevated sed rate Hyperpigmentation of skin Overview: --resolved --bilateral breast tissue and axilla --order mycolog cream --monitor Bfmhcexx61 Overview: - c diff pending Mucositis (ulcerative) due to antineoplastic vnrmewe74 Overview: --improved --oxy prn --mouth care measures. Ghnsni71 Overview: --improved with protonix Elevated LFTs Overview: --increased AST ALT during chemo, resolved. Excess fluid Overview: --diuresis as needed --continue to monitor volume status CINV (chemotherapy-induced nausea and vomiting) Overview: --Resolved --Ativan PRN (none used) Peripheral afrwgotefu65 Overview: --gabapentin 300mg TID with increased symptoms, bedtime dose of gabapentin increased to 600mg with improvement reported, continue DVT ezjivheoacy98 Overview: --platelet count decreasing, d/c heparin SQ --encourage ambulation Dwrluwri82 Overview: --ambien PRN at HS, with relief, but with vivid dreams, ambien d/c --restoril at 30mg PRN at HS with relief, continue Chronic chest pain Overview: --now resolved --since Hodgkin lymphoma diagnosis per patient Hospital discharge follow-up Overview: --Patient will need to follow up with Dr. Unger after discharge Oenhvnyvihq82 Overview: --patient taking atenolol 100mg BID at home, now BP running lower, decreased atenolol dose to 50mg BID with hypotension. --increase to 75mg BID, d/t tachycardia(HRs >110 while afebrile), HR now controlled, continue --monitor closely Electrolyte and fluid disorders not elsewhere xxdiiynfqr03 DISPOSITION AND FOLLOW-UP Overview: 32 yo female from [place], [place]. Family involved with care, at bedside. 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 will start PO pain meds today 10/27. tolerating percocet, pain relatively well controlled. Hodgkin's disease with nodular cwilstheg48 Overview: Oncology history (per Dr. 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 Hodgkin's disease, bgcqacoucsf12Vaginal pvttaxah42/07/2016 Overview: --likely from thrombocytopenia. No menses in prior 8 months. 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 Premature fgcvehzbi94/07/2016Postmenopausal atrophic ivhfdlrbn55/07/2016 Srqrnuqevpr63/07/2016documented as of this encounter (statuses as of 01/17/2022) [facility] History of Past illness Narrative* ProblemNoted Date Resolved DateMenorrhagia with regular cycle Overview: Added automatically from request for surgery [id number] History of pulmonary xtywiqyy67Neoplastic (malignant) related tpexunv59Hidradenitis aflhlaibbpi93Vitamin D xdwztzpdpb86HyperCKemiaElevated aldolase levelChronic pain of both kneesPain in joint, multiple sitesMyalgiaFatigue Malaise and tgtmfca85Gastroesophageal reflux disease without rdyqeyqueqf98Laryngitis02/23/2015 12/26/2015Drug/chem diab w neuro comp w diab autonm (poly)ownciallci89/10/2015 12/26/2015Papanicolaou smear of cervix with low grade squamous intraepithelial lesion (LGSIL)Pain in joint, ankle and foot09/27/2014 12/26/2015ASCUS favor axgbnnlbz69Visit for gynecologic lelwqbfqrdj66Postmenopausal HRT (hormone replacement therapy) Overview: offered Gait jamyzjcevsb30Weakness of both legs Sprain of ankle, leftPCP (pneumocystis jiroveci pneumonia) Acute respiratory failure with ymfnmgdhm62 Overview: Increased O2 requirement overnight (2L to 5L) - bronchoscopy with BAL/TBLB tomorrow 8 AM. - NPO from midnight - hold tonight dose of lovenox. Radiation ktoiimlbizx81 Overview: 40 mg prednisone daily Immunodeficiency with predominant T-cell defect, Urgency of mfluyjlxsmz78Urinary ynumfcmxm24 Arm pain, leftBack pain without vaajaimgg01/19/2014 12/26/2015Abnormal finding on fxodyin84Elevated sed rate Hyperpigmentation of skin Overview: --resolved --bilateral breast tissue and axilla --order mycolog cream --monitor Sgtyrapu67 Overview: - c diff pending Mucositis (ulcerative) due to antineoplastic fyqykqn37 Overview: --improved --oxy prn --mouth care measures. Ytyaov98 Overview: --improved with protonix Elevated LFTs Overview: --increased AST ALT during chemo, resolved. Excess fluid nejpwm06 Overview: --diuresis as needed --continue to monitor volume status CINV (chemotherapy-induced nausea and vomiting) Overview: --Resolved --Ativan PRN (none used) Peripheral dulmblmcre51 Overview: --gabapentin 300mg TID with increased symptoms, bedtime dose of gabapentin increased to 600mg with improvement reported, continue DVT sierrnjswsb22 Overview: --platelet count decreasing, d/c heparin SQ --encourage ambulation Hrxuanrz56 Overview: --ambien PRN at HS, with relief, but with vivid dreams, ambien d/c --restoril at 30mg PRN at HS with relief, continue Chronic chest pain Overview: --now resolved --since Hodgkin lymphoma diagnosis per patient Hospital discharge follow-up Overview: --Patient will need to follow up with Dr. Unger after discharge Yeifuepyudk66 Overview: --patient taking atenolol 100mg BID at home, now BP running lower, decreased atenolol dose to 50mg BID with hypotension. --increase to 75mg BID, d/t tachycardia(HRs >110 while afebrile), HR now controlled, continue --monitor closely Electrolyte and fluid disorders not elsewhere katctrieqk80 DISPOSITION AND FOLLOW-UP Overview: 32 yo female from [place], [place]. Family involved with care, at bedside. 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 will start PO pain meds today 10/27. tolerating percocet, pain relatively well controlled. Hodgkin's disease with nodular khkicycak83 Overview: Oncology history (per Dr. 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 Hodgkin's disease, rnzazkfweyp24Vaginal fwzeybwq46/07/2016 Overview: --likely from thrombocytopenia. No menses in prior 8 months. 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 Premature gqjsbaqwy95/07/2016Postmenopausal atrophic hwadygkjx67/07/2016 Omjyngpojti26/07/2016documented as of this encounter (statuses as of 01/18/2022) [facility] History of Past illness Narrative* ProblemNoted Date Resolved DateMenorrhagia with regular cycle Overview: Added automatically from request for surgery [id number] History of pulmonary socvqhiw39Neoplastic (malignant) related fvppgae65Hidradenitis qtrmhfdqkbi26Vitamin D ofaozvnsih32HyperCKemiaElevated aldolase levelChronic pain of both kneesPain in joint, multiple sitesMyalgiaFatigue Malaise and gypzvvc22Gastroesophageal reflux disease without ebhqhxoqfsn73Laryngitis02/23/2015 12/26/2015Drug/chem diab w neuro comp w diab autonm (poly)fzsxmnislu17/10/2015 12/26/2015Papanicolaou smear of cervix with low grade squamous intraepithelial lesion (LGSIL)Pain in joint, ankle and foot09/27/2014 12/26/2015ASCUS favor stcoetcct28Visit for gynecologic wkxunurrcnv70Postmenopausal HRT (hormone replacement therapy) Overview: offered Gait tdfpdnkdvfs84Weakness of both legs Sprain of ankle, leftPCP (pneumocystis jiroveci pneumonia) Acute respiratory failure with jrbkjpolc26 Overview: Increased O2 requirement overnight (2L to 5L) - bronchoscopy with BAL/TBLB tomorrow 8 AM. - NPO from midnight - hold tonight dose of lovenox. Radiation isoynipfvqw14 Overview: 40 mg prednisone daily Immunodeficiency with predominant T-cell defect, Urgency of imbxdjtznue36Urinary bjcmuhecz68 Arm pain, leftBack pain without /19/2014 12/26/2015Abnormal finding on dujjvfg27Elevated sed rate Hyperpigmentation of skin Overview: --resolved --bilateral breast tissue and axilla --order mycolog cream --monitor Bkwtuokt96 Overview: - c diff pending Mucositis (ulcerative) due to antineoplastic wraknwi66 Overview: --improved --oxy prn --mouth care measures. Fwmraj08 Overview: --improved with protonix Elevated LFTs Overview: --increased AST ALT during chemo, resolved. Excess fluid Overview: --diuresis as needed --continue to monitor volume status CINV (chemotherapy-induced nausea and vomiting) Overview: --Resolved --Ativan PRN (none used) Peripheral Overview: --gabapentin 300mg TID with increased symptoms, bedtime dose of gabapentin increased to 600mg with improvement reported, continue DVT yjtfetqnumo06 Overview: --platelet count decreasing, d/c heparin SQ --encourage ambulation Gyodwdpv03 Overview: --ambien PRN at HS, with relief, but with vivid dreams, ambien d/c --restoril at 30mg PRN at HS with relief, continue Chronic chest pain Overview: --now resolved --since Hodgkin lymphoma diagnosis per patient Hospital discharge follow-up Overview: --Patient will need to follow up with Dr. Unger after discharge Wyajrqshqgw06 Overview: --patient taking atenolol 100mg BID at home, now BP running lower, decreased atenolol dose to 50mg BID with hypotension. --increase to 75mg BID, d/t tachycardia(HRs >110 while afebrile), HR now controlled, continue --monitor closely Electrolyte and fluid disorders not elsewhere sqwukcirer19 DISPOSITION AND FOLLOW-UP Overview: 32 yo female from [place], [place]. Family involved with care, at bedside. 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 will start PO pain meds today 10/27. tolerating percocet, pain relatively well controlled. Hodgkin's disease with nodular kbkiqvftr96 Overview: Oncology history (per Dr. 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 Hodgkin's disease, nyrvsapsojv45Vaginal txnekbig12/07/2016 Overview: --likely from thrombocytopenia. No menses in prior 8 months. 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 Premature ppolwsnvw55/07/2016Postmenopausal atrophic eoyskjjaw96/07/2016 Isdjicbzxmi70/07/2016documented as of this encounter (statuses as of 01/20/2022) [facility] History of Past illness Narrative* ProblemNoted Date Resolved DateMenorrhagia with regular cycle Overview: Added automatically from request for surgery [id number] History of pulmonary hgphbatn23Neoplastic (malignant) related rqvoeon02Hidradenitis hnkcjpltows63Vitamin D jjdxlobhtp61HyperCKemiaElevated aldolase levelChronic pain of both kneesPain in joint, multiple sitesMyalgiaFatigue Malaise and khwvyxh28Gastroesophageal reflux disease without rvnshqfeurw08Laryngitis02/23/2015 12/26/2015Drug/chem diab w neuro comp w diab autonm (poly)qmegvfnngr94/10/2015 12/26/2015Papanicolaou smear of cervix with low grade squamous intraepithelial lesion (LGSIL)Pain in joint, ankle and foot09/27/2014 12/26/2015ASCUS favor hytsrmfwj78Visit for gynecologic cthoelmdpvf58Postmenopausal HRT (hormone replacement therapy) Overview: offered Gait ooatricfait05Weakness of both legs Sprain of ankle, leftPCP (pneumocystis jiroveci pneumonia) Acute respiratory failure with cxffgglap90 Overview: Increased O2 requirement overnight (2L to 5L) - bronchoscopy with BAL/TBLB tomorrow 8 AM. - NPO from midnight - hold tonight dose of lovenox. Radiation blcjezdtcqt57 Overview: 40 mg prednisone daily Immunodeficiency with predominant T-cell defect, ucitagqqzqs58 Urgency of gxigfaqbwep46Urinary qokaiddxq45 Arm pain, leftBack pain without xnpmajlwm15/19/2014 12/26/2015Abnormal finding on wxfvknx61Elevated sed rate Hyperpigmentation of skin Overview: --resolved --bilateral breast tissue and axilla --order mycolog cream --monitor Semmwtso94 Overview: - c diff pending Mucositis (ulcerative) due to antineoplastic hahojrl54 Overview: --improved --oxy prn --mouth care measures. Vjbvtx83 Overview: --improved with protonix Elevated LFTs Overview: --increased AST ALT during chemo, resolved. Excess fluid rvtobk40 Overview: --diuresis as needed --continue to monitor volume status CINV (chemotherapy-induced nausea and vomiting) Overview: --Resolved --Ativan PRN (none used) Peripheral azrlobpqys61 Overview: --gabapentin 300mg TID with increased symptoms, bedtime dose of gabapentin increased to 600mg with improvement reported, continue DVT mqnfnnwakqk79 Overview: --platelet count decreasing, d/c heparin SQ --encourage ambulation Sxbxumtd69 Overview: --ambien PRN at HS, with relief, but with vivid dreams, ambien d/c --restoril at 30mg PRN at HS with relief, continue Chronic chest pain Overview: --now resolved --since Hodgkin lymphoma diagnosis per patient Hospital discharge follow-up Overview: --Patient will need to follow up with Dr. Unger after discharge Hdbylgcjmax11 Overview: --patient taking atenolol 100mg BID at home, now BP running lower, decreased atenolol dose to 50mg BID with hypotension. --increase to 75mg BID, d/t tachycardia(HRs >110 while afebrile), HR now controlled, continue --monitor closely Electrolyte and fluid disorders not elsewhere awlhtzbrux49 DISPOSITION AND FOLLOW-UP Overview: 32 yo female from [place]. Family involved with care, at bedside. 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 will start PO pain meds today 10/27. tolerating percocet, pain relatively well controlled. Hodgkin's disease with nodular zpcedxtxy79 Overview: Oncology history (per Dr. 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 Hodgkin's disease, cbzlkmeevlx36Vaginal /07/2016 Overview: --likely from thrombocytopenia. No menses in prior 8 months. 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 Premature lzafelfba22/07/2016Postmenopausal atrophic npwmrkhoy66/07/2016 Ywymapsxsow49/07/2016documented as of this encounter (statuses as of 01/22/2022) [facility] History of Past illness Narrative* ProblemNoted Date Resolved DateMenorrhagia with regular cycle Overview: Added automatically from request for surgery [id number] History of pulmonary dmabwaye96Neoplastic (malignant) related nyuuwir84Hidradenitis slonavvgkhr89Vitamin D nzwcwtafxg55HyperCKemiaElevated aldolase levelChronic pain of both kneesPain in joint, multiple sitesMyalgiaFatigue Malaise and xkhdpcy31/04/Gastroesophageal reflux disease without xwclmxrzqmt10Laryngitis02/23/2015 12/26/2015Drug/chem diab w neuro comp w diab autonm (poly)gunoiyiehe72/10/2015 12/26/2015Papanicolaou smear of cervix with low grade squamous intraepithelial lesion (LGSIL)Pain in joint, ankle and foot09/27/2014 12/26/2015ASCUS favor ahahrkfrv46Visit for gynecologic vcwczlsiggv84Postmenopausal HRT (hormone replacement therapy) Overview: offered Gait lvzfpsqjyjp85Weakness of both legs Sprain of ankle, leftPCP (pneumocystis jiroveci pneumonia) Acute respiratory failure with gvzlojpwz03 Overview: Increased O2 requirement overnight (2L to 5L) - bronchoscopy with BAL/TBLB tomorrow 8 AM. - NPO from midnight - hold tonight dose of lovenox. Radiation bgsfugntbii91 Overview: 40 mg prednisone daily Immunodeficiency with predominant T-cell defect, vzdjbwaxogt82 Urgency of trqolqcrgzc30Urinary jfbxgmxpy09 Arm pain, leftBack pain without alnqjukvc23/19/2014 12/26/2015Abnormal finding on wksyqed99Elevated sed rate Hyperpigmentation of skin Overview: --resolved --bilateral breast tissue and axilla --order mycolog cream --monitor Uicrpjqh76 Overview: - c diff pending Mucositis (ulcerative) due to antineoplastic sihlikn66 Overview: --improved --oxy prn --mouth care measures. Gmoryt32 Overview: --improved with protonix Elevated LFTs Overview: --increased AST ALT during chemo, resolved. Excess fluid fwmymj53 Overview: --diuresis as needed --continue to monitor volume status CINV (chemotherapy-induced nausea and vomiting) Overview: --Resolved --Ativan PRN (none used) Peripheral Overview: --gabapentin 300mg TID with increased symptoms, bedtime dose of gabapentin increased to 600mg with improvement reported, continue DVT byyzwyxnydb96 Overview: --platelet count decreasing, d/c heparin SQ --encourage ambulation Atedhnbu12 Overview: --ambien PRN at HS, with relief, but with vivid dreams, ambien d/c --restoril at 30mg PRN at HS with relief, continue Chronic chest pain Overview: --now resolved --since Hodgkin lymphoma diagnosis per patient Hospital discharge follow-up Overview: --Patient will need to follow up with Dr. Unger after discharge Zookznewszt62 Overview: --patient taking atenolol 100mg BID at home, now BP running lower, decreased atenolol dose to 50mg BID with hypotension. --increase to 75mg BID, d/t tachycardia(HRs >110 while afebrile), HR now controlled, continue --monitor closely Electrolyte and fluid disorders not elsewhere DISPOSITION AND FOLLOW-UP Overview: 32 yo female from [place], [place]. Family involved with care, at bedside. 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 will start PO pain meds today 10/27. tolerating percocet, pain relatively well controlled. Hodgkin's disease with nodular mobsyyrry30 Overview: Oncology history (per Dr. 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 Hodgkin's disease, xhrjkucuypk26Vaginal dlmpjjbo07/07/2016 Overview: --likely from thrombocytopenia. No menses in prior 8 months. 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 Premature ustjuvpbr63/07/2016Postmenopausal atrophic mopfjzhkw61/07/2016 Vhmukhtovkk65/07/2016documented as of this encounter (statuses as of 01/25/2022) [facility] History of Past illness Narrative* ProblemNoted Date Resolved DateMenorrhagia with regular cycle Overview: Added automatically from request for surgery [id number] History of pulmonary wzizxdqq65Neoplastic (malignant) related fqqcrxj94Hidradenitis mvesszapwhl42Vitamin D puklinuaas65/21/2547KziieEJovov97/18/Elevated aldolase level03/18/336557/07/2016Chronic pain of both kneesPain in joint, multiple sitesMyalgiaFatigue Malaise and smunecs04Gastroesophageal reflux disease without fywhifskvdy75Laryngitis02/23/2015 12/26/2015Drug/chem diab w neuro comp w diab autonm (poly)urtbccdfyi82/10/2015 12/26/2015Papanicolaou smear of cervix with low grade squamous intraepithelial lesion (LGSIL)Pain in joint, ankle and foot09/27/2014 12/26/2015ASCUS favor aieotkxaf87Visit for gynecologic ifoijpxinqd94Postmenopausal HRT (hormone replacement therapy) Overview: offered Gait mcnbbucjvtm65Weakness of both legs Sprain of ankle, leftPCP (pneumocystis jiroveci pneumonia) Acute respiratory failure with ohuadgmfp21 Overview: Increased O2 requirement overnight (2L to 5L) - bronchoscopy with BAL/TBLB tomorrow 8 AM. - NPO from midnight - hold tonight dose of lovenox. Radiation syuppbububb09 Overview: 40 mg prednisone daily Immunodeficiency with predominant T-cell defect, lzwsupoebdu12 Urgency of vueoodedhoa07Urinary yubmydopj54 Arm pain, leftBack pain without /19/2014 12/26/2015Abnormal finding on fqflzyk44Elevated sed rate Hyperpigmentation of skin Overview: --resolved --bilateral breast tissue and axilla --order mycolog cream --monitor Nvuopwzw87 Overview: - c diff pending Mucositis (ulcerative) due to antineoplastic zsiikaw08 Overview: --improved --oxy prn --mouth care measures. Ndabkr85 Overview: --improved with protonix Elevated LFTs Overview: --increased AST ALT during chemo, resolved. Excess fluid nolbof25 Overview: --diuresis as needed --continue to monitor volume status CINV (chemotherapy-induced nausea and vomiting) Overview: --Resolved --Ativan PRN (none used) Peripheral ayfwldobvt30 Overview: --gabapentin 300mg TID with increased symptoms, bedtime dose of gabapentin increased to 600mg with improvement reported, continue DVT hmipazioaow45 Overview: --platelet count decreasing, d/c heparin SQ --encourage ambulation Yfjrvxpc52 Overview: --ambien PRN at HS, with relief, but with vivid dreams, ambien d/c --restoril at 30mg PRN at HS with relief, continue Chronic chest pain Overview: --now resolved --since Hodgkin lymphoma diagnosis per patient Hospital discharge follow-up Overview: --Patient will need to follow up with Dr. Unger after discharge Hvfobiwsnnl13 Overview: --patient taking atenolol 100mg BID at home, now BP running lower, decreased atenolol dose to 50mg BID with hypotension. --increase to 75mg BID, d/t tachycardia(HRs >110 while afebrile), HR now controlled, continue --monitor closely Electrolyte and fluid disorders not elsewhere wrznnpgsaa62 DISPOSITION AND FOLLOW-UP Overview: 32 yo female from [place], [place]. Family involved with care, at bedside. 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 will start PO pain meds today 10/27. tolerating percocet, pain relatively well controlled. Hodgkin's disease with nodular baszkmfrm21 Overview: Oncology history (per Dr. 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 Hodgkin's disease, wxmihmglota10Vaginal hyakpudg16/07/2016 Overview: --likely from thrombocytopenia. No menses in prior 8 months. 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 Premature qafmfjjxu19/07/2016Postmenopausal atrophic msorxuftc89/07/2016 Mckgthtxven58/07/2016documented as of this encounter (statuses as of 02/11/2022) [facility]2018 History of Past illness Narrative* ProblemNoted Date Resolved DateMenorrhagia with regular cycle Overview: Added automatically from request for surgery [id number] History of pulmonary evmzsbce93Neoplastic (malignant) related ocauhtn32Hidradenitis rsxrykanext96Vitamin D fezxtqbvkx43HyperCKemiaElevated aldolase levelChronic pain of both kneesPain in joint, multiple sitesMyalgiaFatigue Malaise and nanregm28Gastroesophageal reflux disease without luseleklevq64Laryngitis02/23/2015 12/26/2015Drug/chem diab w neuro comp w diab autonm (poly)hvupjedsgi81/10/2015 12/26/2015Papanicolaou smear of cervix with low grade squamous intraepithelial lesion (LGSIL)Pain in joint, ankle and foot09/27/2014 12/26/2015ASCUS favor tnccnzcpw28Visit for gynecologic lycsgegvghg14Postmenopausal HRT (hormone replacement therapy) Overview: offered Gait eynrcuwsfjv79Weakness of both legs07/22/ Sprain of ankle, left06/29/PCP (pneumocystis jiroveci pneumonia) Acute respiratory failure with yovgjadoq99 Overview: Increased O2 requirement overnight (2L to 5L) - bronchoscopy with BAL/TBLB tomorrow 8 AM. - NPO from midnight - hold tonight dose of lovenox. Radiation aamkokqmkga71 Overview: 40 mg prednisone daily Immunodeficiency with predominant T-cell defect, moojxerdtgz14 Urgency of sqyxztvzkoo88Urinary tdlwexrdy89 Arm pain, leftBack pain without juhkslqbc12/19/2014 12/26/2015Abnormal finding on gdlgbtb35Elevated sed rate Hyperpigmentation of skin Overview: --resolved --bilateral breast tissue and axilla --order mycolog cream --monitor Jpqphmxl45 Overview: - c diff pending Mucositis (ulcerative) due to antineoplastic vgxnsin90 Overview: --improved --oxy prn --mouth care measures. Azdrlg56 Overview: --improved with protonix Elevated LFTs Overview: --increased AST ALT during chemo, resolved. Excess fluid lifqnk77 Overview: --diuresis as needed --continue to monitor volume status CINV (chemotherapy-induced nausea and vomiting) Overview: --Resolved --Ativan PRN (none used) Peripheral cohagboqkv50 Overview: --gabapentin 300mg TID with increased symptoms, bedtime dose of gabapentin increased to 600mg with improvement reported, continue DVT pulcllvqxsq40 Overview: --platelet count decreasing, d/c heparin SQ --encourage ambulation Uuefwtgj54 Overview: --ambien PRN at HS, with relief, but with vivid dreams, ambien d/c --restoril at 30mg PRN at HS with relief, continue Chronic chest pain Overview: --now resolved --since Hodgkin lymphoma diagnosis per patient Hospital discharge follow-up Overview: --Patient will need to follow up with Dr. Unger after discharge Udejvjahqrk61 Overview: --patient taking atenolol 100mg BID at home, now BP running lower, decreased atenolol dose to 50mg BID with hypotension. --increase to 75mg BID, d/t tachycardia(HRs >110 while afebrile), HR now controlled, continue --monitor closely Electrolyte and fluid disorders not elsewhere nfjbamqopo67 DISPOSITION AND FOLLOW-UP Overview: 32 yo female from [place], [place]. Family involved with care, at bedside. 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 will start PO pain meds today 10/27. tolerating percocet, pain relatively well controlled. Hodgkin's disease with nodular ketxsgcho97 Overview: Oncology history (per Dr. 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 Hodgkin's disease, klxgmhzyapg63Vaginal /07/2016 Overview: --likely from thrombocytopenia. No menses in prior 8 months. 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 Premature cmxoejwuz74/07/2016Postmenopausal atrophic bkausxlci47/07/2016 Khngsfdahjh43/07/2016documented as of this encounter (statuses as of 02/21/2022) [facility] History of Past illness Narrative* ProblemNoted Date Resolved DateMenorrhagia with regular cycle Overview: Added automatically from request for surgery [id number] History of pulmonary wftzxhmm10Neoplastic (malignant) related cfkzwib06Hidradenitis hthcafwbbrw19Vitamin D kwnmacvtkt36HyperCKemiaElevated aldolase levelChronic pain of both kneesPain in joint, multiple sitesMyalgiaFatigue Malaise and mlwhppt49Gastroesophageal reflux disease without ddasysodngc53Laryngitis02/23/2015 12/26/2015Drug/chem diab w neuro comp w diab autonm (poly)sorcuwsvgt48/10/2015 12/26/2015Papanicolaou smear of cervix with low grade squamous intraepithelial lesion (LGSIL)Pain in joint, ankle and foot09/27/2014 12/26/2015ASCUS favor akjhjicsd56Visit for gynecologic zfemnauwxkd38Postmenopausal HRT (hormone replacement therapy) Overview: offered Gait wflsihkddgz35Weakness of both legs Sprain of ankle, leftPCP (pneumocystis jiroveci pneumonia) Acute respiratory failure with vdiygmzbo73 Overview: Increased O2 requirement overnight (2L to 5L) - bronchoscopy with BAL/TBLB tomorrow 8 AM. - NPO from midnight - hold tonight dose of lovenox. Radiation lluvefxppdp73 Overview: 40 mg prednisone daily Immunodeficiency with predominant T-cell defect, yfwmvngzcvc73 Urgency of xpdvhjtsdkc30Urinary ixlgczpjg15 Arm pain, leftBack pain without jrvzwjihk60/19/2014 12/26/2015Abnormal finding on qzwtpul26Elevated sed rate Hyperpigmentation of skin Overview: --resolved --bilateral breast tissue and axilla --order mycolog cream --monitor Tofopauj07 Overview: - c diff pending Mucositis (ulcerative) due to antineoplastic gomdexr27 Overview: --improved --oxy prn --mouth care measures. Xjebon35 Overview: --improved with protonix Elevated LFTs Overview: --increased AST ALT during chemo, resolved. Excess fluid uhnqxn08 Overview: --diuresis as needed --continue to monitor volume status CINV (chemotherapy-induced nausea and vomiting) Overview: --Resolved --Ativan PRN (none used) Peripheral aueuqxyygb80 Overview: --gabapentin 300mg TID with increased symptoms, bedtime dose of gabapentin increased to 600mg with improvement reported, continue DVT fxhvsncjucf70 Overview: --platelet count decreasing, d/c heparin SQ --encourage ambulation Nhzvudgo67 Overview: --ambien PRN at HS, with relief, but with vivid dreams, ambien d/c --restoril at 30mg PRN at HS with relief, continue Chronic chest pain Overview: --now resolved --since Hodgkin lymphoma diagnosis per patient Hospital discharge follow-up Overview: --Patient will need to follow up with Dr. Unger after discharge Ujdwopnpkut59 Overview: --patient taking atenolol 100mg BID at home, now BP running lower, decreased atenolol dose to 50mg BID with hypotension. --increase to 75mg BID, d/t tachycardia(HRs >110 while afebrile), HR now controlled, continue --monitor closely Electrolyte and fluid disorders not elsewhere ymyvbadnvx09 DISPOSITION AND FOLLOW-UP Overview: 32 yo female from [place], [place]. Family involved with care, at bedside. 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 will start PO pain meds today 10/27. tolerating percocet, pain relatively well controlled. Hodgkin's disease with nodular rygksmkna18 Overview: Oncology history (per Dr. 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 Hodgkin's disease, alnxihlgkbu28Vaginal xoyjkfrw20/07/2016 Overview: --likely from thrombocytopenia. No menses in prior 8 months. 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 Premature fwceqsqxa70/07/2016Postmenopausal atrophic hrbahkeut07/07/2016 Xelwjrwrcgo62/07/2016documented as of this encounter (statuses as of 03/06/2022) [facility] History of Past illness Narrative* ProblemNoted Date Resolved DateMenorrhagia with regular cycle Overview: Added automatically from request for surgery [id number] History of pulmonary oatbwczu04Neoplastic (malignant) related akcmzvo42Hidradenitis lzunndqrwcw58Vitamin D qqzsgcntxc84HyperCKemiaElevated aldolase levelChronic pain of both kneesPain in joint, multiple sitesMyalgiaFatigue Malaise and ezzpjhj46Gastroesophageal reflux disease without rspdxssohbs20Laryngitis02/23/2015 12/26/2015Drug/chem diab w neuro comp w diab autonm (poly)exnhgiudoh97/10/2015 12/26/2015Papanicolaou smear of cervix with low grade squamous intraepithelial lesion (LGSIL)Pain in joint, ankle and foot09/27/2014 12/26/2015ASCUS favor kmznmfipj32Visit for gynecologic gktetxxahvn38Postmenopausal HRT (hormone replacement therapy) Overview: offered Gait iqkyqfoxlcg91Weakness of both legs Sprain of ankle, leftPCP (pneumocystis jiroveci pneumonia) Acute respiratory failure with xduacjmsf75 Overview: Increased O2 requirement overnight (2L to 5L) - bronchoscopy with BAL/TBLB tomorrow 8 AM. - NPO from midnight - hold tonight dose of lovenox. Radiation prmqqnyabvl90 Overview: 40 mg prednisone daily Immunodeficiency with predominant T-cell defect, ihylbvkedfz15 Urgency of yksfkwxlfvq68Urinary xxofjghpp05 Arm pain, leftBack pain without vumcllmrd13/19/2014 12/26/2015Abnormal finding on jacdyhd37Elevated sed rate Hyperpigmentation of skin Overview: --resolved --bilateral breast tissue and axilla --order mycolog cream --monitor Djiandck24 Overview: - c diff pending Mucositis (ulcerative) due to antineoplastic gkifpxu31 Overview: --improved --oxy prn --mouth care measures. Zvbdqi16 Overview: --improved with protonix Elevated LFTs Overview: --increased AST ALT during chemo, resolved. Excess fluid uaroov84 Overview: --diuresis as needed --continue to monitor volume status CINV (chemotherapy-induced nausea and vomiting) Overview: --Resolved --Ativan PRN (none used) Peripheral Overview: --gabapentin 300mg TID with increased symptoms, bedtime dose of gabapentin increased to 600mg with improvement reported, continue DVT Overview: --platelet count decreasing, d/c heparin SQ --encourage ambulation Zpckoupt61 Overview: --ambien PRN at HS, with relief, but with vivid dreams, bright d/c --restoril at 30mg PRN at HS with relief, continue Chronic chest pain Overview: --now resolved --since Hodgkin lymphoma diagnosis per patient Hospital discharge follow-up Overview: --Patient will need to follow up with Dr. Unger after discharge Fknmhsujaap33 Overview: --patient taking atenolol 100mg BID at home, now BP running lower, decreased atenolol dose to 50mg BID with hypotension. --increase to 75mg BID, d/t tachycardia(HRs >110 while afebrile), HR now controlled, continue --monitor closely Electrolyte and fluid disorders not elsewhere ydegfkyhzm12 DISPOSITION AND FOLLOW-UP Overview: 32 yo female from [place]. Family involved with care, at bedside. 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 will start PO pain meds today 10/27. tolerating percocet, pain relatively well controlled. Hodgkin's disease with nodular cmjpufxpq35 Overview: Oncology history (per Dr. 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 Hodgkin's disease, bdetdyvbxdy46Vaginal hprmszit76/07/2016 Overview: --likely from thrombocytopenia. No menses in prior 8 months. 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 Premature gvytiarrs41/07/2016Postmenopausal atrophic ajjqmozar49/07/2016 Xozvdcykkdr21/07/2016documented as of this encounter (statuses as of 03/07/2022) [facility] History of Past illness Narrative* ProblemNoted Date Resolved DateMenorrhagia with regular cycle Overview: Added automatically from request for surgery [id number] History of pulmonary irswhdgn05Neoplastic (malignant) related jjflkfw37Hidradenitis sqgmrvtbtzv92Vitamin D fbgardttsv49HyperCKemiaElevated aldolase levelChronic pain of both kneesPain in joint, multiple sitesMyalgiaFatigue Malaise and fyjlgkl07Gastroesophageal reflux disease without ycrixdcixgy56Laryngitis02/23/2015 12/26/2015Drug/chem diab w neuro comp w diab autonm (poly)bqoyawnxrk29/10/2015 12/26/2015Papanicolaou smear of cervix with low grade squamous intraepithelial lesion (LGSIL)Pain in joint, ankle and foot09/27/2014 12/26/2015ASCUS favor ghndxxfcy26Visit for gynecologic jlugrypyhaj09Postmenopausal HRT (hormone replacement therapy) Overview: offered Gait jaggtyjsuqu02Weakness of both legs Sprain of ankle, leftPCP (pneumocystis jiroveci pneumonia) Acute respiratory failure with ukqufaecu42 Overview: Increased O2 requirement overnight (2L to 5L) - bronchoscopy with BAL/TBLB tomorrow 8 AM. - NPO from midnight - hold tonight dose of lovenox. Radiation zrelqjfqhpn85 Overview: 40 mg prednisone daily Immunodeficiency with predominant T-cell defect, fiedpwcpory12 Urgency of qywhietoccc19Urinary yofcombla16 Arm pain, leftBack pain without uwmwasqez43/19/2014 12/26/2015Abnormal finding on kibspho74Elevated sed rate Hyperpigmentation of skin Overview: --resolved --bilateral breast tissue and axilla --order mycolog cream --monitor Dgwpvgzs01 Overview: - c diff pending Mucositis (ulcerative) due to antineoplastic tniwaqv16 Overview: --improved --oxy prn --mouth care measures. Zfdlwr62 Overview: --improved with protonix Elevated LFTs Overview: --increased AST ALT during chemo, resolved. Excess fluid pkolhc03 Overview: --diuresis as needed --continue to monitor volume status CINV (chemotherapy-induced nausea and vomiting) Overview: --Resolved --Ativan PRN (none used) Peripheral fjjxmslcox84 Overview: --gabapentin 300mg TID with increased symptoms, bedtime dose of gabapentin increased to 600mg with improvement reported, continue DVT dldmpdiqudb97 Overview: --platelet count decreasing, d/c heparin SQ --encourage ambulation Pfjsjojy26 Overview: --ambien PRN at HS, with relief, but with vivid dreams, ambien d/c --restoril at 30mg PRN at HS with relief, continue Chronic chest pain Overview: --now resolved --since Hodgkin lymphoma diagnosis per patient Hospital discharge follow-up Overview: --Patient will need to follow up with Dr. Unger after discharge Ntymypxnbnj63 Overview: --patient taking atenolol 100mg BID at home, now BP running lower, decreased atenolol dose to 50mg BID with hypotension. --increase to 75mg BID, d/t tachycardia(HRs >110 while afebrile), HR now controlled, continue --monitor closely Electrolyte and fluid disorders not elsewhere inzglhrefv92 DISPOSITION AND FOLLOW-UP Overview: 32 yo female from [place]. Family involved with care, at bedside. 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 will start PO pain meds today 10/27. tolerating percocet, pain relatively well controlled. Hodgkin's disease with nodular ontygsysx25 Overview: Oncology history (per Dr. 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 Hodgkin's disease, riomcvqxolt77Vaginal mjntnjup41/07/2016 Overview: --likely from thrombocytopenia. No menses in prior 8 months. 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 Premature mfpzifhsr95/07/2016Postmenopausal atrophic knvehumox36/07/2016 Xaonlcgwugr90/07/2016documented as of this encounter (statuses as of 03/07/2022) [facility] History of Past illness Narrative* ProblemNoted Date Resolved DateMenorrhagia with regular cycle Overview: Added automatically from request for surgery [id number] History of pulmonary nlenrabp79Neoplastic (malignant) related xqusnzj88Hidradenitis tfqhezkhfhl22Vitamin D ynxlcorqrt25HyperCKemiaElevated aldolase levelChronic pain of both kneesPain in joint, multiple sitesMyalgiaFatigue Malaise and afxchjk32Gastroesophageal reflux disease without wcgamclofqp13Laryngitis02/23/2015 12/26/2015Drug/chem diab w neuro comp w diab autonm (poly)bmubwcoxjf45/10/2015 12/26/2015Papanicolaou smear of cervix with low grade squamous intraepithelial lesion (LGSIL)Pain in joint, ankle and foot09/27/2014 12/26/2015ASCUS favor ggmdwvulc56Visit for gynecologic kbuemuiiosp69Postmenopausal HRT (hormone replacement therapy) Overview: offered Gait vgjguuaylza28Weakness of both legs Sprain of ankle, leftPCP (pneumocystis jiroveci pneumonia) Acute respiratory failure with opechojig12 Overview: Increased O2 requirement overnight (2L to 5L) - bronchoscopy with BAL/TBLB tomorrow 8 AM. - NPO from midnight - hold tonight dose of lovenox. Radiation lobletsnvoc71 Overview: 40 mg prednisone daily Immunodeficiency with predominant T-cell defect, mjxaarmrwkp77 Urgency of bheimuqadpr61Urinary tdjdfuhpp55 Arm pain, leftBack pain without /19/2014 12/26/2015Abnormal finding on rzaqdzx58Elevated sed rate Hyperpigmentation of skin Overview: --resolved --bilateral breast tissue and axilla --order mycolog cream --monitor Ajxkjrdg00 Overview: - c diff pending Mucositis (ulcerative) due to antineoplastic Overview: --improved --oxy prn --mouth care measures. Qxffoc15 Overview: --improved with protonix Elevated LFTs Overview: --increased AST ALT during chemo, resolved. Excess fluid Overview: --diuresis as needed --continue to monitor volume status CINV (chemotherapy-induced nausea and vomiting) Overview: --Resolved --Ativan PRN (none used) Peripheral iacsijqpqd38 Overview: --gabapentin 300mg TID with increased symptoms, bedtime dose of gabapentin increased to 600mg with improvement reported, continue DVT yzkuqfktlht19 Overview: --platelet count decreasing, d/c heparin SQ --encourage ambulation Mhwsqhma01 Overview: --ambien PRN at HS, with relief, but with vivid dreams, ambien d/c --restoril at 30mg PRN at HS with relief, continue Chronic chest pain Overview: --now resolved --since Hodgkin lymphoma diagnosis per patient Hospital discharge follow-up Overview: --Patient will need to follow up with Dr. Unger after discharge Kmzoujeziuz55 Overview: --patient taking atenolol 100mg BID at home, now BP running lower, decreased atenolol dose to 50mg BID with hypotension. --increase to 75mg BID, d/t tachycardia(HRs >110 while afebrile), HR now controlled, continue --monitor closely Electrolyte and fluid disorders not elsewhere rmvkoohlid61 DISPOSITION AND FOLLOW-UP Overview: 32 yo female from [place], [place]. Family involved with care, at bedside. 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 will start PO pain meds today 10/27. tolerating percocet, pain relatively well controlled. Hodgkin's disease with nodular zgwemrfqs44 Overview: Oncology history (per Dr. 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 Hodgkin's disease, byjiqwapytg06Vaginal /07/2016 Overview: --likely from thrombocytopenia. No menses in prior 8 months. 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 Premature osjcnrkkn81/07/2016Postmenopausal atrophic smhfejfte70/07/2016 Gdomtzqashm28/07/2016documented as of this encounter (statuses as of 03/15/2022) [facility] History of Past illness Narrative* ProblemNoted Date Resolved DateMenorrhagia with regular cycle Overview: Added automatically from request for surgery [id number] History of pulmonary pnusbyak69Neoplastic (malignant) related xjitqar29Hidradenitis mbcgbjuuspp59Vitamin D efoheczrks89HyperCKemiaElevated aldolase levelChronic pain of both kneesPain in joint, multiple sitesMyalgiaFatigue Malaise and ilusmuz73Gastroesophageal reflux disease without hddckiuvqnr96Laryngitis02/23/2015 12/26/2015Drug/chem diab w neuro comp w diab autonm (poly)/10/2015 12/26/2015Papanicolaou smear of cervix with low grade squamous intraepithelial lesion (LGSIL)Pain in joint, ankle and foot09/27/2014 12/26/2015ASCUS favor gxxkaizei39Visit for gynecologic cnlczfjaabe59Postmenopausal HRT (hormone replacement therapy) Overview: offered Gait sztvapmrybk40Weakness of both legs Sprain of ankle, leftPCP (pneumocystis jiroveci pneumonia) Acute respiratory failure with tyxcnpmav44 Overview: Increased O2 requirement overnight (2L to 5L) - bronchoscopy with BAL/TBLB tomorrow 8 AM. - NPO from midnight - hold tonight dose of lovenox. Radiation evfebablaio72 Overview: 40 mg prednisone daily Immunodeficiency with predominant T-cell defect, nncgxqwkpis01 Urgency of wjpycdbrlnq27Urinary vkzqkamzs33 Arm pain, leftBack pain without hzxcjkatn08/19/2014 12/26/2015Abnormal finding on bvwwwqu16Elevated sed rate Hyperpigmentation of skin Overview: --resolved --bilateral breast tissue and axilla --order mycolog cream --monitor Wfqvhssx16 Overview: - c diff pending Mucositis (ulcerative) due to antineoplastic vxomfri58 Overview: --improved --oxy prn --mouth care measures. Fyigqz57 Overview: --improved with protonix Elevated LFTs Overview: --increased AST ALT during chemo, resolved. Excess fluid ymcxfx34 Overview: --diuresis as needed --continue to monitor volume status CINV (chemotherapy-induced nausea and vomiting) Overview: --Resolved --Ativan PRN (none used) Peripheral yhqafaoirx44 Overview: --gabapentin 300mg TID with increased symptoms, bedtime dose of gabapentin increased to 600mg with improvement reported, continue DVT vonuxgjmygl23 Overview: --platelet count decreasing, d/c heparin SQ --encourage ambulation Rayvlivf45 Overview: --ambien PRN at HS, with relief, but with vivid dreams, ambien d/c --restoril at 30mg PRN at HS with relief, continue Chronic chest pain Overview: --now resolved --since Hodgkin lymphoma diagnosis per patient Hospital discharge follow-up Overview: --Patient will need to follow up with Dr. Unger after discharge Xrsujstjwzt74 Overview: --patient taking atenolol 100mg BID at home, now BP running lower, decreased atenolol dose to 50mg BID with hypotension. --increase to 75mg BID, d/t tachycardia(HRs >110 while afebrile), HR now controlled, continue --monitor closely Electrolyte and fluid disorders not elsewhere DISPOSITION AND FOLLOW-UP Overview: 32 yo female from [place], [place]. Family involved with care, at bedside. 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 will start PO pain meds today 10/27. tolerating percocet, pain relatively well controlled. Hodgkin's disease with nodular cjbufarnh87 Overview: Oncology history (per Dr. 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 Hodgkin's disease, vmrddllqbsn35Vaginal hqylspiz95/07/2016 Overview: --likely from thrombocytopenia. No menses in prior 8 months. 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 Premature sigswavfc18/07/2016Postmenopausal atrophic nmtobkmte38/07/2016 Ssxmpjmqdhs53/07/2016documented as of this encounter (statuses as of 03/15/2022) [facility]2018 History of Past illness Narrative* ProblemNoted Date Resolved DateMenorrhagia with regular cycle Overview: Added automatically from request for surgery [id number] History of pulmonary jqpmkuda15Neoplastic (malignant) related aoebced06Hidradenitis chhlcjxcjnk99Vitamin D rbrytcadze23HyperCKemiaElevated aldolase levelChronic pain of both kneesPain in joint, multiple sitesMyalgiaFatigue Malaise and ypdepkv69/04/Gastroesophageal reflux disease without tiafhahogme99Laryngitis02/23/2015 12/26/2015Drug/chem diab w neuro comp w diab autonm (poly)ynnjfhqjvd00/10/2015 12/26/2015Papanicolaou smear of cervix with low grade squamous intraepithelial lesion (LGSIL)Pain in joint, ankle and foot09/27/2014 12/26/2015ASCUS favor khxjxxndo83Visit for gynecologic ecajfdczjrv94Postmenopausal HRT (hormone replacement therapy) Overview: offered Gait spuxuhnphwh61Weakness of both legs Sprain of ankle, leftPCP (pneumocystis jiroveci pneumonia) Acute respiratory failure with czahhkcwq19 Overview: Increased O2 requirement overnight (2L to 5L) - bronchoscopy with BAL/TBLB tomorrow 8 AM. - NPO from midnight - hold tonight dose of lovenox. Radiation zdteeupdjvz46 Overview: 40 mg prednisone daily Immunodeficiency with predominant T-cell defect, kdjoxryxdru40 Urgency of ccebmatrgnv36Urinary dnczompdx14 Arm pain, leftBack pain without yzpmosqnn48/19/2014 12/26/2015Abnormal finding on fkzjvxu46Elevated sed rate Hyperpigmentation of skin Overview: --resolved --bilateral breast tissue and axilla --order mycolog cream --monitor Momhbvhz83 Overview: - c diff pending Mucositis (ulcerative) due to antineoplastic Overview: --improved --oxy prn --mouth care measures. Bsqaom01 Overview: --improved with protonix Elevated LFTs Overview: --increased AST ALT during chemo, resolved. Excess fluid Overview: --diuresis as needed --continue to monitor volume status CINV (chemotherapy-induced nausea and vomiting) Overview: --Resolved --Ativan PRN (none used) Peripheral iogzpnoyfo72 Overview: --gabapentin 300mg TID with increased symptoms, bedtime dose of gabapentin increased to 600mg with improvement reported, continue DVT llpgbvqtluq06 Overview: --platelet count decreasing, d/c heparin SQ --encourage ambulation Eoazllvh21 Overview: --ambien PRN at HS, with relief, but with vivid dreams, ambien d/c --restoril at 30mg PRN at HS with relief, continue Chronic chest pain Overview: --now resolved --since Hodgkin lymphoma diagnosis per patient Hospital discharge follow-up Overview: --Patient will need to follow up with Dr. Unger after discharge Ssjazxgsivh00 Overview: --patient taking atenolol 100mg BID at home, now BP running lower, decreased atenolol dose to 50mg BID with hypotension. --increase to 75mg BID, d/t tachycardia(HRs >110 while afebrile), HR now controlled, continue --monitor closely Electrolyte and fluid disorders not elsewhere kyhmolvljv74 DISPOSITION AND FOLLOW-UP Overview: 32 yo female from [place], [place]. Family involved with care, at bedside. 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 will start PO pain meds today 10/27. tolerating percocet, pain relatively well controlled. Hodgkin's disease with nodular umkijjlbu70 Overview: Oncology history (per Dr. 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 Hodgkin's disease, ndfqbnjikpf33Vaginal /07/2016 Overview: --likely from thrombocytopenia. No menses in prior 8 months. 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 Premature rpgsdjykd70/07/2016Postmenopausal atrophic hhabcrjqm45/07/2016 Zuzyoqnndqq35/07/2016documented as of this encounter (statuses as of 03/19/2022) [facility] History of Past illness Narrative* ProblemNoted Date Resolved DateMenorrhagia with regular cycle Overview: Added automatically from request for surgery [id number] History of pulmonary ihmpscww37Neoplastic (malignant) related mkudjdg79Hidradenitis dbhcsusbaan20Vitamin D vvnxknlfvt17HyperCKemiaElevated aldolase levelChronic pain of both kneesPain in joint, multiple sitesMyalgiaFatigue Malaise and qlbxspv02Gastroesophageal reflux disease without jkmtiqdgabc47Laryngitis02/23/2015 12/26/2015Drug/chem diab w neuro comp w diab autonm (poly)xomfzptivw88/10/2015 12/26/2015Papanicolaou smear of cervix with low grade squamous intraepithelial lesion (LGSIL)Pain in joint, ankle and foot09/27/2014 12/26/2015ASCUS favor jdtksnwqq06Visit for gynecologic tupydgxfxkh22Postmenopausal HRT (hormone replacement therapy) Overview: offered Gait gymtmruoeaj17Weakness of both legs Sprain of ankle, leftPCP (pneumocystis jiroveci pneumonia) Acute respiratory failure with mkxvyovsc17 Overview: Increased O2 requirement overnight (2L to 5L) - bronchoscopy with BAL/TBLB tomorrow 8 AM. - NPO from midnight - hold tonight dose of lovenox. Radiation actxqocxbjo98 Overview: 40 mg prednisone daily Immunodeficiency with predominant T-cell defect, okgvaukdtlk40 Urgency of cbgddvlbzkd58Urinary xgkzuodrg94 Arm pain, leftBack pain without eaageptoq18/19/2014 12/26/2015Abnormal finding on rwpgxno41Elevated sed rate Hyperpigmentation of skin Overview: --resolved --bilateral breast tissue and axilla --order mycolog cream --monitor Gjuanvcq20 Overview: - c diff pending Mucositis (ulcerative) due to antineoplastic nrwrlye68 Overview: --improved --oxy prn --mouth care measures. Sjqqyq62 Overview: --improved with protonix Elevated LFTs Overview: --increased AST ALT during chemo, resolved. Excess fluid ypuwlk33 Overview: --diuresis as needed --continue to monitor volume status CINV (chemotherapy-induced nausea and vomiting) Overview: --Resolved --Ativan PRN (none used) Peripheral Overview: --gabapentin 300mg TID with increased symptoms, bedtime dose of gabapentin increased to 600mg with improvement reported, continue DVT ebnthufdlhz40 Overview: --platelet count decreasing, d/c heparin SQ --encourage ambulation Stroytwa51 Overview: --ambien PRN at HS, with relief, but with vivid dreams, ambien d/c --restoril at 30mg PRN at HS with relief, continue Chronic chest pain Overview: --now resolved --since Hodgkin lymphoma diagnosis per patient Hospital discharge follow-up Overview: --Patient will need to follow up with Dr. Unger after discharge Eeclrdbjfms02 Overview: --patient taking atenolol 100mg BID at home, now BP running lower, decreased atenolol dose to 50mg BID with hypotension. --increase to 75mg BID, d/t tachycardia(HRs >110 while afebrile), HR now controlled, continue --monitor closely Electrolyte and fluid disorders not elsewhere fjtwhmcraj13 DISPOSITION AND FOLLOW-UP Overview: 32 yo female from [place], [place]. Family involved with care, at bedside. 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 will start PO pain meds today 10/27. tolerating percocet, pain relatively well controlled. Hodgkin's disease with nodular Overview: Oncology history (per Dr. 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 Hodgkin's disease, mepvizusgmu70Vaginal gefucptf58/07/2016 Overview: --likely from thrombocytopenia. No menses in prior 8 months. 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 Premature wowyuemvv76/07/2016Postmenopausal atrophic itrdwlpjk18/08/2015 Fykweplbbcn14/07/2016documented as of this encounter (statuses as of 03/22/2022) [facility] History of Past illness Narrative* ProblemNoted Date Resolved DateMenorrhagia with regular cycle Overview: Added automatically from request for surgery [id number] History of pulmonary cfzhrxnl99Neoplastic (malignant) related fmxlfpk32Hidradenitis jytdflpfvgb44Vitamin D hrkjdsvlns92HyperCKemiaElevated aldolase levelChronic pain of both kneesPain in joint, multiple sitesMyalgiaFatigue Malaise and ppamhec00Gastroesophageal reflux disease without jpvawpisnsl29Laryngitis02/23/2015 12/26/2015Drug/chem diab w neuro comp w diab autonm (poly)alsvpibbsd02/10/2015 12/26/2015Papanicolaou smear of cervix with low grade squamous intraepithelial lesion (LGSIL)Pain in joint, ankle and foot09/27/2014 12/26/2015ASCUS favor blmrsberi38Visit for gynecologic uifehgektgs33Postmenopausal HRT (hormone replacement therapy) Overview: offered Gait tflvlmbokis13Weakness of both legs Sprain of ankle, left06/29/PCP (pneumocystis jiroveci pneumonia) Acute respiratory failure with tmtiekdgc68 Overview: Increased O2 requirement overnight (2L to 5L) - bronchoscopy with BAL/TBLB tomorrow 8 AM. - NPO from midnight - hold tonight dose of lovenox. Radiation qmuyshsldhu90 Overview: 40 mg prednisone daily Immunodeficiency with predominant T-cell defect, bvpoktjtdkl51 Urgency of ekihrzihxtv17Urinary lhoqqrwjt17 Arm pain, leftBack pain without jhnolmqdr20/19/2014 12/26/2015Abnormal finding on baiwrem60Elevated sed rate Hyperpigmentation of skin Overview: --resolved --bilateral breast tissue and axilla --order mycolog cream --monitor Ndtzodps25 Overview: - c diff pending Mucositis (ulcerative) due to antineoplastic xshjvqi66 Overview: --improved --oxy prn --mouth care measures. Aklcfo98 Overview: --improved with protonix Elevated LFTs Overview: --increased AST ALT during chemo, resolved. Excess fluid zfhocs54 Overview: --diuresis as needed --continue to monitor volume status CINV (chemotherapy-induced nausea and vomiting) Overview: --Resolved --Ativan PRN (none used) Peripheral gjnftydcbe31 Overview: --gabapentin 300mg TID with increased symptoms, bedtime dose of gabapentin increased to 600mg with improvement reported, continue DVT xrmhyumcdfm10 Overview: --platelet count decreasing, d/c heparin SQ --encourage ambulation Whejneku14 Overview: --ambien PRN at HS, with relief, but with vivid dreams, ambien d/c --restoril at 30mg PRN at HS with relief, continue Chronic chest pain Overview: --now resolved --since Hodgkin lymphoma diagnosis per patient Hospital discharge follow-up Overview: --Patient will need to follow up with Dr. Unger after discharge Jidipixmybv44 Overview: --patient taking atenolol 100mg BID at home, now BP running lower, decreased atenolol dose to 50mg BID with hypotension. --increase to 75mg BID, d/t tachycardia(HRs >110 while afebrile), HR now controlled, continue --monitor closely Electrolyte and fluid disorders not elsewhere njzetnfplc98 DISPOSITION AND FOLLOW-UP Overview: 32 yo female from [place]. Family involved with care, at bedside. 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 will start PO pain meds today 10/27. tolerating percocet, pain relatively well controlled. Hodgkin's disease with nodular mwtvpzwqe69 Overview: Oncology history (per Dr. 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 Hodgkin's disease, ochnmfpanlh99Vaginal /07/2016 Overview: --likely from thrombocytopenia. No menses in prior 8 months. 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 Premature /07/2016Postmenopausal atrophic kbxbfaajx83/07/2016 Cipzchmzimu68/07/2016documented as of this encounter (statuses as of 03/23/2022) [facility] History of Past illness Narrative* ProblemNoted Date Resolved DateMenorrhagia with regular cycle Overview: Added automatically from request for surgery [id number] History of pulmonary ktvbdfhr84Neoplastic (malignant) related mfbfznl51Hidradenitis judhnruosly32Vitamin D qxjpacduxw44HyperCKemiaElevated aldolase levelChronic pain of both kneesPain in joint, multiple sitesMyalgiaFatigue Malaise and aljwuoo86Gastroesophageal reflux disease without oaaigsxaugu74Laryngitis02/23/2015 12/26/2015Drug/chem diab w neuro comp w diab autonm (poly)fvrieobrod71/10/2015 12/26/2015Papanicolaou smear of cervix with low grade squamous intraepithelial lesion (LGSIL)Pain in joint, ankle and foot09/27/2014 12/26/2015ASCUS favor iffklvclm81Visit for gynecologic bhgibjxdtrv93Postmenopausal HRT (hormone replacement therapy) Overview: offered Gait ginimoxkida34Weakness of both legs Sprain of ankle, leftPCP (pneumocystis jiroveci pneumonia) Acute respiratory failure with jyjmrqqxq76 Overview: Increased O2 requirement overnight (2L to 5L) - bronchoscopy with BAL/TBLB tomorrow 8 AM. - NPO from midnight - hold tonight dose of lovenox. Radiation wryoydfjghw79 Overview: 40 mg prednisone daily Immunodeficiency with predominant T-cell defect, llcvvaexvdi16 Urgency of tgvquzsmhfy25Urinary xcavbfmdb04 Arm pain, leftBack pain without wivfceilt98/19/2014 12/26/2015Abnormal finding on wdjbvkl01Elevated sed rate Hyperpigmentation of skin Overview: --resolved --bilateral breast tissue and axilla --order mycolog cream --monitor Bcfoerdl49 Overview: - c diff pending Mucositis (ulcerative) due to antineoplastic wbcrnuo99 Overview: --improved --oxy prn --mouth care measures. Whyksi37 Overview: --improved with protonix Elevated LFTs Overview: --increased AST ALT during chemo, resolved. Excess fluid afsmsp64 Overview: --diuresis as needed --continue to monitor volume status CINV (chemotherapy-induced nausea and vomiting) Overview: --Resolved --Ativan PRN (none used) Peripheral cabetwktyt86 Overview: --gabapentin 300mg TID with increased symptoms, bedtime dose of gabapentin increased to 600mg with improvement reported, continue DVT dsdenqahnqu33 Overview: --platelet count decreasing, d/c heparin SQ --encourage ambulation Shigyvyy14 Overview: --ambien PRN at HS, with relief, but with vivid dreams, ambien d/c --restoril at 30mg PRN at HS with relief, continue Chronic chest pain Overview: --now resolved --since Hodgkin lymphoma diagnosis per patient Hospital discharge follow-up Overview: --Patient will need to follow up with Dr. Unger after discharge Fsswwueryoc31 Overview: --patient taking atenolol 100mg BID at home, now BP running lower, decreased atenolol dose to 50mg BID with hypotension. --increase to 75mg BID, d/t tachycardia(HRs >110 while afebrile), HR now controlled, continue --monitor closely Electrolyte and fluid disorders not elsewhere zlkogfxxvq63 DISPOSITION AND FOLLOW-UP Overview: 32 yo female from [place]. Family involved with care, at bedside. 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 will start PO pain meds today 10/27. tolerating percocet, pain relatively well controlled. Hodgkin's disease with nodular muzlhyifq63 Overview: Oncology history (per Dr. 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 Hodgkin's disease, jtqhugfvtnn13Vaginal omglnblj26/07/2016 Overview: --likely from thrombocytopenia. No menses in prior 8 months. 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 Premature erswmezxw22/07/2016Postmenopausal atrophic /07/2016 Mnoudvzecbq38/07/2016documented as of this encounter (statuses as of 03/24/2022) [facility]-26[facility]2018 History of Past illness Narrative* ProblemNoted Date Resolved DateMenorrhagia with regular cycle Overview: Added automatically from request for surgery [id number] History of pulmonary ddwgtilj68Neoplastic (malignant) related mcwyuvy35Hidradenitis kisgkwaahoa73Vitamin D mmkcrizmup48HyperCKemiaElevated aldolase levelChronic pain of both kneesPain in joint, multiple sitesMyalgiaFatigue Malaise and hgddrbe26Gastroesophageal reflux disease without bbalmzdbyzz79Laryngitis02/23/2015 12/26/2015Drug/chem diab w neuro comp w diab autonm (poly)rrgbokoold13/10/2015 12/26/2015Papanicolaou smear of cervix with low grade squamous intraepithelial lesion (LGSIL)Pain in joint, ankle and foot09/27/2014 12/26/2015ASCUS favor dgdgmhuvp52Visit for gynecologic dbjohnpbkjt39Postmenopausal HRT (hormone replacement therapy) Overview: offered Gait gtmfolnchmi50Weakness of both legs Sprain of ankle, leftPCP (pneumocystis jiroveci pneumonia) Acute respiratory failure with cdiztegly40 Overview: Increased O2 requirement overnight (2L to 5L) - bronchoscopy with BAL/TBLB tomorrow 8 AM. - NPO from midnight - hold tonight dose of lovenox. Radiation hfebjsmdnsm25 Overview: 40 mg prednisone daily Immunodeficiency with predominant T-cell defect, krokpikpntv25 Urgency of dozacaqipvv76Urinary kqgadifer53 Arm pain, leftBack pain without kekspqdau24/19/2014 12/26/2015Abnormal finding on ujtzlef39Elevated sed rate Hyperpigmentation of skin Overview: --resolved --bilateral breast tissue and axilla --order mycolog cream --monitor Zpnfiuki89 Overview: - c diff pending Mucositis (ulcerative) due to antineoplastic lmughsd28 Overview: --improved --oxy prn --mouth care measures. Hvalaq34 Overview: --improved with protonix Elevated LFTs Overview: --increased AST ALT during chemo, resolved. Excess fluid ikbohk29 Overview: --diuresis as needed --continue to monitor volume status CINV (chemotherapy-induced nausea and vomiting) Overview: --Resolved --Ativan PRN (none used) Peripheral lovpoarkaa78 Overview: --gabapentin 300mg TID with increased symptoms, bedtime dose of gabapentin increased to 600mg with improvement reported, continue DVT vmpmcpoauny68 Overview: --platelet count decreasing, d/c heparin SQ --encourage ambulation Unbxlmmj44 Overview: --ambien PRN at HS, with relief, but with vivid dreams, ambien d/c --restoril at 30mg PRN at HS with relief, continue Chronic chest pain Overview: --now resolved --since Hodgkin lymphoma diagnosis per patient Hospital discharge follow-up Overview: --Patient will need to follow up with Dr. Unger after discharge Yrbogzqunjz43 Overview: --patient taking atenolol 100mg BID at home, now BP running lower, decreased atenolol dose to 50mg BID with hypotension. --increase to 75mg BID, d/t tachycardia(HRs >110 while afebrile), HR now controlled, continue --monitor closely Electrolyte and fluid disorders not elsewhere iyhuszykho03 DISPOSITION AND FOLLOW-UP Overview: 32 yo female from [place], [place]. Family involved with care, at bedside. 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 will start PO pain meds today 10/27. tolerating percocet, pain relatively well controlled. Hodgkin's disease with nodular vtguiwhyd39 Overview: Oncology history (per Dr. 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 Hodgkin's disease, lalepehtark71Vaginal dburicbs54/07/2016 Overview: --likely from thrombocytopenia. No menses in prior 8 months. 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 Premature vpmvtifvj59/07/2016Postmenopausal atrophic ctgelhbzp98/07/2016 Orulklmepyp33/07/2016documented as of this encounter (statuses as of 03/26/2022) [facility]01-[facility]-2018 History of Past illness Narrative* ProblemNoted Date Resolved DateMenorrhagia with regular cycle Overview: Added automatically from request for surgery [id number] History of pulmonary rndwnaqm53Neoplastic (malignant) related kouznts82Hidradenitis omlmngghpwo97Vitamin D mvqooimtwf60HyperCKemiaElevated aldolase levelChronic pain of both kneesPain in joint, multiple sitesMyalgiaFatigue Malaise and uonqtkk57Gastroesophageal reflux disease without zttsdzrivkx95Laryngitis02/23/2015 12/26/2015Drug/chem diab w neuro comp w diab autonm (poly)bfrmiijevw63/10/2015 12/26/2015Papanicolaou smear of cervix with low grade squamous intraepithelial lesion (LGSIL)Pain in joint, ankle and foot09/27/2014 12/26/2015ASCUS favor qmmgieyne17Visit for gynecologic otxnnctayzh58Postmenopausal HRT (hormone replacement therapy) Overview: offered Gait qptfaylbzqh72Weakness of both legs Sprain of ankle, leftPCP (pneumocystis jiroveci pneumonia) Acute respiratory failure with bkfxpqgti68 Overview: Increased O2 requirement overnight (2L to 5L) - bronchoscopy with BAL/TBLB tomorrow 8 AM. - NPO from midnight - hold tonight dose of lovenox. 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 Suceek20 Overview: --improved with protonix Elevated LFTs Overview: --increased AST ALT during chemo, resolved. Excess fluid Overview: --diuresis as needed --continue to monitor volume status CINV (chemotherapy-induced nausea and vomiting) Overview: --Resolved --Ativan PRN (none used) Peripheral fpxziusozr70 Overview: --gabapentin 300mg TID with increased symptoms, bedtime dose of gabapentin increased to 600mg with improvement reported, continue DVT peojymonlrl40 Overview: --platelet count decreasing, d/c heparin SQ --encourage ambulation Lfhbfbbj43 Overview: --ambien PRN at HS, with relief, but with vivid dreams, ambien d/c --restoril at 30mg PRN at HS with relief, continue Chronic chest pain Overview: --now resolved --since Hodgkin lymphoma diagnosis per patient Hospital discharge follow-up Overview: --Patient will need to follow up with Dr. Unger after discharge Ayrbwykepux02 Overview: --patient taking atenolol 100mg BID at home, now BP running lower, decreased atenolol dose to 50mg BID with hypotension. --increase to 75mg BID, d/t tachycardia(HRs >110 while afebrile), HR now controlled, continue --monitor closely Electrolyte and fluid disorders not elsewhere ioeiznrwdn59 DISPOSITION AND FOLLOW-UP Overview: 32 yo female from [place], [place]. Family involved with care, at bedside. 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 will start PO pain meds today 10/27. tolerating percocet, pain relatively well controlled. Hodgkin's disease with nodular xlhyjabqa00 Overview: Oncology history (per Dr. 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 Hodgkin's disease, ggjapfipovt32Vaginal yqjzxxmb99/07/2016 Overview: --likely from thrombocytopenia. No menses in prior 8 months. 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 Premature jspezwovp03/07/2016Postmenopausal atrophic /07/2016 Arnimafwfzj36/07/2016documented as of this encounter (statuses as of 03/30/2022) [facility]2018 History of Past illness Narrative* ProblemNoted Date Resolved DateMenorrhagia with regular cycle Overview: Added automatically from request for surgery [id number] History of pulmonary jrsuaowq94Neoplastic (malignant) related sekabwz31Hidradenitis bfzzkalayef08Vitamin D wlkgcgcjxz18HyperCKemiaElevated aldolase levelChronic pain of both kneesPain in joint, multiple sitesMyalgiaFatigue Malaise and cbekkkm03Gastroesophageal reflux disease without uqqvxmiedpa23Laryngitis02/23/2015 12/26/2015Drug/chem diab w neuro comp w diab autonm (poly)fkajuwjppq22/10/2015 12/26/2015Papanicolaou smear of cervix with low grade squamous intraepithelial lesion (LGSIL)Pain in joint, ankle and foot09/27/2014 12/26/2015ASCUS favor lmshrntns17Visit for gynecologic cfozuqfhgvb33Postmenopausal HRT (hormone replacement therapy) Overview: offered Gait kixqamfesfi49Weakness of both legs Sprain of ankle, leftPCP (pneumocystis jiroveci pneumonia) Acute respiratory failure with pfwclezna85 Overview: Increased O2 requirement overnight (2L to 5L) - bronchoscopy with BAL/TBLB tomorrow 8 AM. - NPO from midnight - hold tonight dose of lovenox. Radiation prwlewgvwqx98 Overview: 40 mg prednisone daily Immunodeficiency with predominant T-cell defect, ehcsyqdndef18 Urgency of daowbcqrnit84Urinary sdhxamjrv80 Arm pain, leftBack pain without apkmzrlhd56/19/2014 12/26/2015Abnormal finding on moldpzi97Elevated sed rate Hyperpigmentation of skin Overview: --resolved --bilateral breast tissue and axilla --order mycolog cream --monitor Bneunjvr60 Overview: - c diff pending Mucositis (ulcerative) due to antineoplastic lurjrbx88 Overview: --improved --oxy prn --mouth care measures. Gpcphq00 Overview: --improved with protonix Elevated LFTs Overview: --increased AST ALT during chemo, resolved. Excess fluid yalaib29 Overview: --diuresis as needed --continue to monitor volume status CINV (chemotherapy-induced nausea and vomiting) Overview: --Resolved --Ativan PRN (none used) Peripheral xgtzcmuqht03 Overview: --gabapentin 300mg TID with increased symptoms, bedtime dose of gabapentin increased to 600mg with improvement reported, continue DVT eniicmfffwp83 Overview: --platelet count decreasing, d/c heparin SQ --encourage ambulation Vrhcfcac25 Overview: --ambien PRN at HS, with relief, but with vivid dreams, ambien d/c --restoril at 30mg PRN at HS with relief, continue Chronic chest pain Overview: --now resolved --since Hodgkin lymphoma diagnosis per patient Hospital discharge follow-up Overview: --Patient will need to follow up with Dr. Unger after discharge Fbkkicbkstp62 Overview: --patient taking atenolol 100mg BID at home, now BP running lower, decreased atenolol dose to 50mg BID with hypotension. --increase to 75mg BID, d/t tachycardia(HRs >110 while afebrile), HR now controlled, continue --monitor closely Electrolyte and fluid disorders not elsewhere brernsudny56 DISPOSITION AND FOLLOW-UP Overview: 32 yo female from [place], [place]. Family involved with care, at bedside. 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 will start PO pain meds today 10/27. tolerating percocet, pain relatively well controlled. Hodgkin's disease with nodular wcvsiegyh01 Overview: Oncology history (per Dr. 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 Hodgkin's disease, zefrjbzhqtf97Vaginal cioapzza51/07/2016 Overview: --likely from thrombocytopenia. No menses in prior 8 months. 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 Premature stzdmdfex14/07/2016Postmenopausal atrophic bbceyftgm09/07/2016 Grvnqeqnivf90/07/2016documented as of this encounter (statuses as of 04/01/2022) [facility]2018 History of Past illness Narrative* ProblemNoted Date Resolved DateMenorrhagia with regular cycle Overview: Added automatically from request for surgery [id number] History of pulmonary dclxgrbo78Neoplastic (malignant) related tjcspvb75Hidradenitis tvedinrrmbk47Vitamin D pomqqlywyr25HyperCKemiaElevated aldolase levelChronic pain of both kneesPain in joint, multiple sitesMyalgiaFatigue Malaise and guzpmgw14Gastroesophageal reflux disease without jepzghdmbwd28Laryngitis02/23/2015 12/26/2015Drug/chem diab w neuro comp w diab autonm (poly)qatbwtacvy67/10/2015 12/26/2015Papanicolaou smear of cervix with low grade squamous intraepithelial lesion (LGSIL)Pain in joint, ankle and foot09/27/2014 12/26/2015ASCUS favor tzdgfjktu03Visit for gynecologic ecwcrrhhssa13Postmenopausal HRT (hormone replacement therapy) Overview: offered Gait xktvefxbxgl58Weakness of both legs Sprain of ankle, leftPCP (pneumocystis jiroveci pneumonia) Acute respiratory failure with tjckjbiwi42 Overview: Increased O2 requirement overnight (2L to 5L) - bronchoscopy with BAL/TBLB tomorrow 8 AM. - NPO from midnight - hold tonight dose of lovenox. Radiation Overview: 40 mg prednisone daily Immunodeficiency with predominant T-cell defect, kuefmupnjhu98 Urgency of qigyizakske12Urinary sybvtghai70 Arm pain, leftBack pain without vlawmvnxe22/19/2014 12/26/2015Abnormal finding on vtskvje37Elevated sed rate Hyperpigmentation of skin Overview: --resolved --bilateral breast tissue and axilla --order mycolog cream --monitor Dfhtnwiv68 Overview: - c diff pending Mucositis (ulcerative) due to antineoplastic qcwsbuo20 Overview: --improved --oxy prn --mouth care measures. Iufuye46 Overview: --improved with protonix Elevated LFTs Overview: --increased AST ALT during chemo, resolved. Excess fluid vqnvoh81 Overview: --diuresis as needed --continue to monitor volume status CINV (chemotherapy-induced nausea and vomiting) Overview: --Resolved --Ativan PRN (none used) Peripheral rerlbogyfs10 Overview: --gabapentin 300mg TID with increased symptoms, bedtime dose of gabapentin increased to 600mg with improvement reported, continue DVT yoksepovdhq37 Overview: --platelet count decreasing, d/c heparin SQ --encourage ambulation Florwwab09 Overview: --ambien PRN at HS, with relief, but with vivid dreams, ambien d/c --restoril at 30mg PRN at HS with relief, continue Chronic chest pain Overview: --now resolved --since Hodgkin lymphoma diagnosis per patient Hospital discharge follow-up Overview: --Patient will need to follow up with Dr. Unger after discharge Gkmoixbwpje25 Overview: --patient taking atenolol 100mg BID at home, now BP running lower, decreased atenolol dose to 50mg BID with hypotension. --increase to 75mg BID, d/t tachycardia(HRs >110 while afebrile), HR now controlled, continue --monitor closely Electrolyte and fluid disorders not elsewhere oiahmrbwpf40 DISPOSITION AND FOLLOW-UP Overview: 32 yo female from [place], [place]. Family involved with care, at bedside. 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 will start PO pain meds today 10/27. tolerating percocet, pain relatively well controlled. Hodgkin's disease with nodular ejzbcvhgc37 Overview: Oncology history (per Dr. 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 Hodgkin's disease, svxzdhzzmuf75Vaginal grmagbfb36/07/2016 Overview: --likely from thrombocytopenia. No menses in prior 8 months. 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 Premature klwuficng96/07/2016Postmenopausal atrophic sszzkypsv78/07/2016 Iksxfzqysvm83/07/2016documented as of this encounter (statuses as of 04/10/2022) [facility] History of Past illness Narrative* ProblemNoted Date Resolved DateMenorrhagia with regular cycle Overview: Added automatically from request for surgery [id number] History of pulmonary pkbvxyzh58Neoplastic (malignant) related sgybgad69Hidradenitis wltgccglpsz98Vitamin D ovccyseqiy82HyperCKemiaElevated aldolase levelChronic pain of both kneesPain in joint, multiple sitesMyalgiaFatigue Malaise and ktcioxy84Gastroesophageal reflux disease without gkewkvfrjlh72Laryngitis02/23/2015 12/26/2015Drug/chem diab w neuro comp w diab autonm (poly)hdzprsblsa80/10/2015 12/26/2015Papanicolaou smear of cervix with low grade squamous intraepithelial lesion (LGSIL)Pain in joint, ankle and foot09/27/2014 12/26/2015ASCUS favor sbdiggsuu08Visit for gynecologic efkkmpjxawf60Postmenopausal HRT (hormone replacement therapy) Overview: offered Gait jqvqowizohx83Weakness of both legs Sprain of ankle, leftPCP (pneumocystis jiroveci pneumonia) Acute respiratory failure with objquzdnt94 Overview: Increased O2 requirement overnight (2L to 5L) - bronchoscopy with BAL/TBLB tomorrow 8 AM. - NPO from midnight - hold tonight dose of lovenox. Radiation fiuqoiilyed07 Overview: 40 mg prednisone daily Immunodeficiency with predominant T-cell defect, dzfqrmpbgor29 Urgency of csqktzyleob56Urinary ivmziwkwj69 Arm pain, leftBack pain without sbfttmnse08/19/2014 12/26/2015Abnormal finding on emusheg77Elevated sed rate Hyperpigmentation of skin Overview: --resolved --bilateral breast tissue and axilla --order mycolog cream --monitor Begunkbh41 Overview: - c diff pending Mucositis (ulcerative) due to antineoplastic rstqefu56 Overview: --improved --oxy prn --mouth care measures. Zokuzz64 Overview: --improved with protonix Elevated LFTs Overview: --increased AST ALT during chemo, resolved. Excess fluid ozjvsu14 Overview: --diuresis as needed --continue to monitor volume status CINV (chemotherapy-induced nausea and vomiting) Overview: --Resolved --Ativan PRN (none used) Peripheral ufonlqtily00 Overview: --gabapentin 300mg TID with increased symptoms, bedtime dose of gabapentin increased to 600mg with improvement reported, continue DVT wvnlibydmwa09 Overview: --platelet count decreasing, d/c heparin SQ --encourage ambulation Lieobqot23 Overview: --ambien PRN at HS, with relief, but with vivid dreams, ambien d/c --restoril at 30mg PRN at HS with relief, continue Chronic chest pain Overview: --now resolved --since Hodgkin lymphoma diagnosis per patient Hospital discharge follow-up Overview: --Patient will need to follow up with Dr. Unger after discharge Wlikfrrvokz88 Overview: --patient taking atenolol 100mg BID at home, now BP running lower, decreased atenolol dose to 50mg BID with hypotension. --increase to 75mg BID, d/t tachycardia(HRs >110 while afebrile), HR now controlled, continue --monitor closely Electrolyte and fluid disorders not elsewhere vsmugpksdo82 DISPOSITION AND FOLLOW-UP Overview: 32 yo female from [place]. Family involved with care, at bedside. 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 will start PO pain meds today 10/27. tolerating percocet, pain relatively well controlled. Hodgkin's disease with nodular Overview: Oncology history (per Dr. 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 Hodgkin's disease, niboftnunar41Vaginal kinkvcms88/07/2016 Overview: --likely from thrombocytopenia. No menses in prior 8 months. 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 Premature bubcgdbuv75/07/2016Postmenopausal atrophic wdpslianl02/07/2016 Ocnuympoibl15/07/2016documented as of this encounter (statuses as of 04/16/2022) [facility] History of Past illness Narrative* ProblemNoted Date Resolved DateMenorrhagia with regular cycle Overview: Added automatically from request for surgery [id number] History of pulmonary oytdibzz24Neoplastic (malignant) related uodohrx52Hidradenitis bunifjqmkzn86Vitamin D dtpdmdhnbh78HyperCKemiaElevated aldolase levelChronic pain of both kneesPain in joint, multiple sitesMyalgiaFatigue Malaise and qdjxuqw24Gastroesophageal reflux disease without bcgvncnqigs50Laryngitis02/23/2015 12/26/2015Drug/chem diab w neuro comp w diab autonm (poly)qfoprnqcee74/10/2015 12/26/2015Papanicolaou smear of cervix with low grade squamous intraepithelial lesion (LGSIL)Pain in joint, ankle and foot09/27/2014 12/26/2015ASCUS favor lgixwffue70Visit for gynecologic jfumfuyxyik73Postmenopausal HRT (hormone replacement therapy) Overview: offered Gait yxcsfjypbsa57Weakness of both legs Sprain of ankle, leftPCP (pneumocystis jiroveci pneumonia) Acute respiratory failure with Overview: Increased O2 requirement overnight (2L to 5L) - bronchoscopy with BAL/TBLB tomorrow 8 AM. - NPO from midnight - hold tonight dose of lovenox. 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 Gnpqkb19 Overview: --improved with protonix Elevated LFTs Overview: --increased AST ALT during chemo, resolved. Excess fluid ijznhc11 Overview: --diuresis as needed --continue to monitor volume status CINV (chemotherapy-induced nausea and vomiting) Overview: --Resolved --Ativan PRN (none used) Peripheral qljndjwuvi38 Overview: --gabapentin 300mg TID with increased symptoms, bedtime dose of gabapentin increased to 600mg with improvement reported, continue DVT ttfuruylujy09 Overview: --platelet count decreasing, d/c heparin SQ --encourage ambulation Kfsehact82 Overview: --ambien PRN at HS, with relief, but with vivid dreams, ambien d/c --restoril at 30mg PRN at HS with relief, continue Chronic chest pain Overview: --now resolved --since Hodgkin lymphoma diagnosis per patient Hospital discharge follow-up Overview: --Patient will need to follow up with Dr. Unger after discharge Ybwjjtrboaw60 Overview: --patient taking atenolol 100mg BID at home, now BP running lower, decreased atenolol dose to 50mg BID with hypotension. --increase to 75mg BID, d/t tachycardia(HRs >110 while afebrile), HR now controlled, continue --monitor closely Electrolyte and fluid disorders not elsewhere DISPOSITION AND FOLLOW-UP Overview: 32 yo female from [place], [place]. Family involved with care, at bedside. 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 will start PO pain meds today 10/27. tolerating percocet, pain relatively well controlled. Hodgkin's disease with nodular mozgnhqvb55 Overview: Oncology history (per Dr. 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 Hodgkin's disease, hgxnmmayuwn25Vaginal oxrdqlqj35/07/2016 Overview: --likely from thrombocytopenia. No menses in prior 8 months. 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 Premature wugsyotdn35/07/2016Postmenopausal atrophic kdyrfidbv46/07/2016 Wdeojaalraf02/07/2016documented as of this encounter (statuses as of 04/17/2022) [facility]2018 History of Past illness Narrative* ProblemNoted Date Resolved DateMenorrhagia with regular cycle Overview: Added automatically from request for surgery [id number] History of pulmonary shigrgab09Neoplastic (malignant) related snthubf12Hidradenitis rretlnjybww24Vitamin D bjbhpwapkn14HyperCKemiaElevated aldolase levelChronic pain of both kneesPain in joint, multiple sitesMyalgiaFatigue Malaise and mnfgeiw18Gastroesophageal reflux disease without wgixfnasymi89Laryngitis02/23/2015 12/26/2015Drug/chem diab w neuro comp w diab autonm (poly)fdbetapobq52/10/2015 12/26/2015Papanicolaou smear of cervix with low grade squamous intraepithelial lesion (LGSIL)Pain in joint, ankle and foot09/27/2014 12/26/2015ASCUS favor cjsnljzqp73Visit for gynecologic ycopceqexrm77Postmenopausal HRT (hormone replacement therapy) Overview: offered Gait pkecnfyjesg68Weakness of both legs Sprain of ankle, leftPCP (pneumocystis jiroveci pneumonia) Acute respiratory failure with lxedsngtl65 Overview: Increased O2 requirement overnight (2L to 5L) - bronchoscopy with BAL/TBLB tomorrow 8 AM. - NPO from midnight - hold tonight dose of lovenox. Radiation yjqbpaqorfp31 Overview: 40 mg prednisone daily Immunodeficiency with predominant T-cell defect, jyhvxadhkbk56 Urgency of dggnxzjakfy93Urinary eengjpdag18 Arm pain, leftBack pain without oqxboinnb27/19/2014 12/26/2015Abnormal finding on nylxhlh91Elevated sed rate Hyperpigmentation of skin Overview: --resolved --bilateral breast tissue and axilla --order mycolog cream --monitor Bffwrodb29 Overview: - c diff pending Mucositis (ulcerative) due to antineoplastic uqjefyf21 Overview: --improved --oxy prn --mouth care measures. Zpwcuo89 Overview: --improved with protonix Elevated LFTs Overview: --increased AST ALT during chemo, resolved. Excess fluid dfajst61 Overview: --diuresis as needed --continue to monitor volume status CINV (chemotherapy-induced nausea and vomiting) Overview: --Resolved --Ativan PRN (none used) Peripheral paaanhdykg90 Overview: --gabapentin 300mg TID with increased symptoms, bedtime dose of gabapentin increased to 600mg with improvement reported, continue DVT oqkbpbqtrfk20 Overview: --platelet count decreasing, d/c heparin SQ --encourage ambulation Zfvhjcaf25 Overview: --ambien PRN at HS, with relief, but with vivid dreams, ambien d/c --restoril at 30mg PRN at HS with relief, continue Chronic chest pain Overview: --now resolved --since Hodgkin lymphoma diagnosis per patient Hospital discharge follow-up Overview: --Patient will need to follow up with Dr. Unger after discharge Vxuesdeztau06 Overview: --patient taking atenolol 100mg BID at home, now BP running lower, decreased atenolol dose to 50mg BID with hypotension. --increase to 75mg BID, d/t tachycardia(HRs >110 while afebrile), HR now controlled, continue --monitor closely Electrolyte and fluid disorders not elsewhere csimsarofo67 DISPOSITION AND FOLLOW-UP Overview: 32 yo female from [place], [place]. Family involved with care, at bedside. 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 will start PO pain meds today 10/27. tolerating percocet, pain relatively well controlled. Hodgkin's disease with nodular eajzzzkln37 Overview: Oncology history (per Dr. 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 Hodgkin's disease, uqcbrgkfmfu30Vaginal pyvkyknb07/07/2016 Overview: --likely from thrombocytopenia. No menses in prior 8 months. 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 Premature uxpgperpa51/07/2016Postmenopausal atrophic pbajcmbzk28/07/2016 Rxiqjlrxpni71/07/2016documented as of this encounter (statuses as of 04/20/2022) [facility]01[facility]2018 History of Past illness Narrative* ProblemNoted Date Resolved DateMenorrhagia with regular cycle Overview: Added automatically from request for surgery [id number] History of pulmonary spbynwyi03Neoplastic (malignant) related htarxmr36Hidradenitis nrtdlpimzdn13Vitamin D kpxlnnthkl48HyperCKemiaElevated aldolase levelChronic pain of both kneesPain in joint, multiple sitesMyalgiaFatigue Malaise and jlzthql90Gastroesophageal reflux disease without scjvjptiqlb87Laryngitis02/23/2015 12/26/2015Drug/chem diab w neuro comp w diab autonm (poly)bkogecjlas70/10/2015 12/26/2015Papanicolaou smear of cervix with low grade squamous intraepithelial lesion (LGSIL)Pain in joint, ankle and foot09/27/2014 12/26/2015ASCUS favor grhcworxs91Visit for gynecologic uszchajurjc61Postmenopausal HRT (hormone replacement therapy) Overview: offered Gait urseynqdwnu43Weakness of both legs Sprain of ankle, leftPCP (pneumocystis jiroveci pneumonia) Acute respiratory failure with bsrgeuzgb46 Overview: Increased O2 requirement overnight (2L to 5L) - bronchoscopy with BAL/TBLB tomorrow 8 AM. - NPO from midnight - hold tonight dose of lovenox. 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 Lculro61 Overview: --improved with protonix Elevated LFTs Overview: --increased AST ALT during chemo, resolved. Excess fluid vtoitj89 Overview: --diuresis as needed --continue to monitor volume status CINV (chemotherapy-induced nausea and vomiting) Overview: --Resolved --Ativan PRN (none used) Peripheral recguepzgy10 Overview: --gabapentin 300mg TID with increased symptoms, bedtime dose of gabapentin increased to 600mg with improvement reported, continue DVT xcujoszwgtt84 Overview: --platelet count decreasing, d/c heparin SQ --encourage ambulation Muymykgr67 Overview: --ambien PRN at HS, with relief, but with vivid dreams, ambien d/c --restoril at 30mg PRN at HS with relief, continue Chronic chest pain Overview: --now resolved --since Hodgkin lymphoma diagnosis per patient Hospital discharge follow-up Overview: --Patient will need to follow up with Dr. Unger after discharge Pxvgjwmpadr26 Overview: --patient taking atenolol 100mg BID at home, now BP running lower, decreased atenolol dose to 50mg BID with hypotension. --increase to 75mg BID, d/t tachycardia(HRs >110 while afebrile), HR now controlled, continue --monitor closely Electrolyte and fluid disorders not elsewhere DISPOSITION AND FOLLOW-UP Overview: 32 yo female from [place], [place]. Family involved with care, at bedside. 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 will start PO pain meds today 10/27. tolerating percocet, pain relatively well controlled. Hodgkin's disease with nodular dsssqillt43 Overview: Oncology history (per Dr. 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 Hodgkin's disease, teludimmnlt07Vaginal gpcfayip23/07/2016 Overview: --likely from thrombocytopenia. No menses in prior 8 months. 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 Premature whyluujfl74/07/2016Postmenopausal atrophic /07/2016 Isfpctsmhda65/07/2016documented as of this encounter (statuses as of 04/23/2022) [facility]01[facility]2018 History of Past illness Narrative* ProblemNoted Date Resolved DateMenorrhagia with regular cycle Overview: Added automatically from request for surgery [id number] History of pulmonary rewreukb73Neoplastic (malignant) related scncnja29Hidradenitis swtffymtdoi73Vitamin D ivugaldxpn96HyperCKemiaElevated aldolase levelChronic pain of both kneesPain in joint, multiple sitesMyalgiaFatigue Malaise and pgzsetx25Gastroesophageal reflux disease without sbhyvqcukxb53Laryngitis02/23/2015 12/26/2015Drug/chem diab w neuro comp w diab autonm (poly)nxutqlgthp27/10/2015 12/26/2015Papanicolaou smear of cervix with low grade squamous intraepithelial lesion (LGSIL)Pain in joint, ankle and foot09/27/2014 12/26/2015ASCUS favor jlvfvpsrv01Visit for gynecologic ylkxshtmsnl75Postmenopausal HRT (hormone replacement therapy) Overview: offered Gait ptyedbpdnwr92Weakness of both legs Sprain of ankle, leftPCP (pneumocystis jiroveci pneumonia) Acute respiratory failure with tzaeonqyc00 Overview: Increased O2 requirement overnight (2L to 5L) - bronchoscopy with BAL/TBLB tomorrow 8 AM. - NPO from midnight - hold tonight dose of lovenox. Radiation kajixrolpbv21 Overview: 40 mg prednisone daily Immunodeficiency with predominant T-cell defect, qymfrjijfas31 Urgency of oigbnocougt67Urinary utmpynpdm89 Arm pain, leftBack pain without kxuqbdwgo06/19/2014 12/26/2015Abnormal finding on sryipwq52Elevated sed rate Hyperpigmentation of skin Overview: --resolved --bilateral breast tissue and axilla --order mycolog cream --monitor Ubpyjbim20 Overview: - c diff pending Mucositis (ulcerative) due to antineoplastic aqnccqt20 Overview: --improved --oxy prn --mouth care measures. Kongeh67 Overview: --improved with protonix Elevated LFTs Overview: --increased AST ALT during chemo, resolved. Excess fluid midqhq80 Overview: --diuresis as needed --continue to monitor volume status CINV (chemotherapy-induced nausea and vomiting) Overview: --Resolved --Ativan PRN (none used) Peripheral qpevwfledt03 Overview: --gabapentin 300mg TID with increased symptoms, bedtime dose of gabapentin increased to 600mg with improvement reported, continue DVT tpoqybcicgl06 Overview: --platelet count decreasing, d/c heparin SQ --encourage ambulation Uekrnytb55 Overview: --ambien PRN at HS, with relief, but with vivid dreams, ambien d/c --restoril at 30mg PRN at HS with relief, continue Chronic chest pain Overview: --now resolved --since Hodgkin lymphoma diagnosis per patient Hospital discharge follow-up Overview: --Patient will need to follow up with Dr. Unger after discharge Rijvmawoebx51 Overview: --patient taking atenolol 100mg BID at home, now BP running lower, decreased atenolol dose to 50mg BID with hypotension. --increase to 75mg BID, d/t tachycardia(HRs >110 while afebrile), HR now controlled, continue --monitor closely Electrolyte and fluid disorders not elsewhere xtokriprol94 DISPOSITION AND FOLLOW-UP Overview: 32 yo female from [place], [place]. Family involved with care, at bedside. 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 will start PO pain meds today 10/27. tolerating percocet, pain relatively well controlled. Hodgkin's disease with nodular bgadqbaej87 Overview: Oncology history (per Dr. 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 Hodgkin's disease, rapvyowcugh74Vaginal swlyledi17/07/2016 Overview: --likely from thrombocytopenia. No menses in prior 8 months. 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 Premature dhtubmzhg49/07/2016Postmenopausal atrophic hdkpkycno55/07/2016 Nevifkuwedk66/07/2016documented as of this encounter (statuses as of 04/23/2022) [facility]2018 History of Past illness Narrative* ProblemNoted Date Resolved DateMenorrhagia with regular cycle Overview: Added automatically from request for surgery [id number] History of pulmonary ptstbjxb10Neoplastic (malignant) related lmhbbky67Hidradenitis twjsantkpnw40Vitamin D rxnrwlyumh70HyperCKemiaElevated aldolase levelChronic pain of both kneesPain in joint, multiple sitesMyalgiaFatigue Malaise and ayknwft46Gastroesophageal reflux disease without kwgmenpilnl19Laryngitis02/23/2015 12/26/2015Drug/chem diab w neuro comp w diab autonm (poly)hlyciubhhx62/10/2015 12/26/2015Papanicolaou smear of cervix with low grade squamous intraepithelial lesion (LGSIL)Pain in joint, ankle and foot09/27/2014 12/26/2015ASCUS favor jjcmrvpfs92Visit for gynecologic phoyknuwvqw47Postmenopausal HRT (hormone replacement therapy) Overview: offered Gait cbgzvaahwfn36Weakness of both legs Sprain of ankle, leftPCP (pneumocystis jiroveci pneumonia) Acute respiratory failure with kwalugobi27 Overview: Increased O2 requirement overnight (2L to 5L) - bronchoscopy with BAL/TBLB tomorrow 8 AM. - NPO from midnight - hold tonight dose of lovenox. Radiation wwjvxhkjrwu91 Overview: 40 mg prednisone daily Immunodeficiency with predominant T-cell defect, ndxtivdqiuj26 Urgency of kqhjwrxzpuh15Urinary ctmedymft88 Arm pain, leftBack pain without jeyhnowuo21/19/2014 12/26/2015Abnormal finding on xnegxfm90Elevated sed rate Hyperpigmentation of skin Overview: --resolved --bilateral breast tissue and axilla --order mycolog cream --monitor Cpgeisbj25 Overview: - c diff pending Mucositis (ulcerative) due to antineoplastic jojbquf79 Overview: --improved --oxy prn --mouth care measures. Aiohol89 Overview: --improved with protonix Elevated LFTs Overview: --increased AST ALT during chemo, resolved. Excess fluid yrrnzi08 Overview: --diuresis as needed --continue to monitor volume status CINV (chemotherapy-induced nausea and vomiting) Overview: --Resolved --Ativan PRN (none used) Peripheral xiqwqvexdr27 Overview: --gabapentin 300mg TID with increased symptoms, bedtime dose of gabapentin increased to 600mg with improvement reported, continue DVT zjcepbbayky82 Overview: --platelet count decreasing, d/c heparin SQ --encourage ambulation Yiztxulg93 Overview: --ambien PRN at HS, with relief, but with vivid dreams, ambien d/c --restoril at 30mg PRN at HS with relief, continue Chronic chest pain Overview: --now resolved --since Hodgkin lymphoma diagnosis per patient Hospital discharge follow-up Overview: --Patient will need to follow up with Dr. Unger after discharge Ngymciglaoz73 Overview: --patient taking atenolol 100mg BID at home, now BP running lower, decreased atenolol dose to 50mg BID with hypotension. --increase to 75mg BID, d/t tachycardia(HRs >110 while afebrile), HR now controlled, continue --monitor closely Electrolyte and fluid disorders not elsewhere crfpnptpca66 DISPOSITION AND FOLLOW-UP Overview: 32 yo female from [place], [place]. Family involved with care, at bedside. 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 will start PO pain meds today 10/27. tolerating percocet, pain relatively well controlled. Hodgkin's disease with nodular riojmezxy27 Overview: Oncology history (per Dr. 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 Hodgkin's disease, drrhdjombxt49Vaginal jmpszvix01/07/2016 Overview: --likely from thrombocytopenia. No menses in prior 8 months. 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 Premature cozmjozup11/07/2016Postmenopausal atrophic gncwpselm16/07/2016 Lfhlkqrxowr95/07/2016documented as of this encounter (statuses as of 04/25/2022) [facility] History of Past illness Narrative* ProblemNoted Date Resolved DateMenorrhagia with regular cycle Overview: Added automatically from request for surgery [id number] History of pulmonary agsnvjre11Neoplastic (malignant) related roofnay38Hidradenitis cjddscifdkw62Vitamin D zwzbtamcvx38HyperCKemiaElevated aldolase levelChronic pain of both kneesPain in joint, multiple sitesMyalgiaFatigue Malaise and njzqiqe40Gastroesophageal reflux disease without htiitptodpg45Laryngitis02/23/2015 12/26/2015Drug/chem diab w neuro comp w diab autonm (poly)mivurynoyu48/10/2015 12/26/2015Papanicolaou smear of cervix with low grade squamous intraepithelial lesion (LGSIL)Pain in joint, ankle and foot09/27/2014 12/26/2015ASCUS favor hrsyakqog12Visit for gynecologic xfwtcvsykvy79Postmenopausal HRT (hormone replacement therapy) Overview: offered Gait bxfgowbemge32Weakness of both legs Sprain of ankle, leftPCP (pneumocystis jiroveci pneumonia) Acute respiratory failure with Overview: Increased O2 requirement overnight (2L to 5L) - bronchoscopy with BAL/TBLB tomorrow 8 AM. - NPO from midnight - hold tonight dose of lovenox. Radiation bkblfpasqvt94 Overview: 40 mg prednisone daily Immunodeficiency with predominant T-cell defect, bqtbjugofhp92 Urgency of ditiwxbyqsj83Urinary oekjefrfm70 Arm pain, leftBack pain without wdafptxmg13/19/2014 12/26/2015Abnormal finding on opdpuom70Elevated sed rate Hyperpigmentation of skin Overview: --resolved --bilateral breast tissue and axilla --order mycolog cream --monitor Eaaxriak06 Overview: - c diff pending Mucositis (ulcerative) due to antineoplastic rfxfdzu89 Overview: --improved --oxy prn --mouth care measures. Altwuj45 Overview: --improved with protonix Elevated LFTs Overview: --increased AST ALT during chemo, resolved. Excess fluid jjpcui12 Overview: --diuresis as needed --continue to monitor volume status CINV (chemotherapy-induced nausea and vomiting) Overview: --Resolved --Ativan PRN (none used) Peripheral Overview: --gabapentin 300mg TID with increased symptoms, bedtime dose of gabapentin increased to 600mg with improvement reported, continue DVT mqlxcfeabic46 Overview: --platelet count decreasing, d/c heparin SQ --encourage ambulation Ulqdboye36 Overview: --ambien PRN at HS, with relief, but with vivid dreams, ambien d/c --restoril at 30mg PRN at HS with relief, continue Chronic chest pain Overview: --now resolved --since Hodgkin lymphoma diagnosis per patient Hospital discharge follow-up Overview: --Patient will need to follow up with Dr. Unger after discharge Mdhuvecawze74 Overview: --patient taking atenolol 100mg BID at home, now BP running lower, decreased atenolol dose to 50mg BID with hypotension. --increase to 75mg BID, d/t tachycardia(HRs >110 while afebrile), HR now controlled, continue --monitor closely Electrolyte and fluid disorders not elsewhere fpwlcqvllo49 DISPOSITION AND FOLLOW-UP Overview: 32 yo female from [place]. Family involved with care, at bedside. 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 will start PO pain meds today 10/27. tolerating percocet, pain relatively well controlled. Hodgkin's disease with nodular kwkuqtmpl41 Overview: Oncology history (per Dr. 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 Hodgkin's disease, retjjpxczly99Vaginal eutkoajh32/07/2016 Overview: --likely from thrombocytopenia. No menses in prior 8 months. 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 Premature fllbuwtif77/07/2016Postmenopausal atrophic lbdeggdyw91/07/2016 Zztqixbpnpg37/07/2016documented as of this encounter (statuses as of 05/01/2022) [facility] History of Past illness Narrative* ProblemNoted Date Resolved DateMenorrhagia with regular cycle Overview: Added automatically from request for surgery [id number] History of pulmonary fbzqadeh07Neoplastic (malignant) related bvfpgoe70Hidradenitis ymhdvnycxzk91Vitamin D gaqcuvinjl27HyperCKemiaElevated aldolase levelChronic pain of both kneesPain in joint, multiple sitesMyalgiaFatigue Malaise and pmshnzq73Gastroesophageal reflux disease without yzhhsfvzzht99Laryngitis02/23/2015 12/26/2015Drug/chem diab w neuro comp w diab autonm (poly)iimhglfgkp45/10/2015 12/26/2015Papanicolaou smear of cervix with low grade squamous intraepithelial lesion (LGSIL)Pain in joint, ankle and foot09/27/2014 12/26/2015ASCUS favor nemosogwt13Visit for gynecologic oqignyobbnm30Postmenopausal HRT (hormone replacement therapy) Overview: offered Gait focsbpbkffj79Weakness of both legs07/22/ Sprain of ankle, leftPCP (pneumocystis jiroveci pneumonia) Acute respiratory failure with oalfbhjvj01 Overview: Increased O2 requirement overnight (2L to 5L) - bronchoscopy with BAL/TBLB tomorrow 8 AM. - NPO from midnight - hold tonight dose of lovenox. 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 Abwajn85 Overview: --improved with protonix Elevated LFTs Overview: --increased AST ALT during chemo, resolved. Excess fluid ahroaz51 Overview: --diuresis as needed --continue to monitor volume status CINV (chemotherapy-induced nausea and vomiting) Overview: --Resolved --Ativan PRN (none used) Peripheral yqwxmfknsg85 Overview: --gabapentin 300mg TID with increased symptoms, bedtime dose of gabapentin increased to 600mg with improvement reported, continue DVT mwblnrmtqik28 Overview: --platelet count decreasing, d/c heparin SQ --encourage ambulation Xrkcqppv31 Overview: --ambien PRN at HS, with relief, but with vivid dreams, ambien d/c --restoril at 30mg PRN at HS with relief, continue Chronic chest pain Overview: --now resolved --since Hodgkin lymphoma diagnosis per patient Hospital discharge follow-up Overview: --Patient will need to follow up with Dr. Unger after discharge Yqgardmjbqv16 Overview: --patient taking atenolol 100mg BID at home, now BP running lower, decreased atenolol dose to 50mg BID with hypotension. --increase to 75mg BID, d/t tachycardia(HRs >110 while afebrile), HR now controlled, continue --monitor closely Electrolyte and fluid disorders not elsewhere rawxqbfesu09 DISPOSITION AND FOLLOW-UP Overview: 32 yo female from [place], [place]. Family involved with care, at bedside. 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 will start PO pain meds today 10/27. tolerating percocet, pain relatively well controlled. Hodgkin's disease with nodular kanpcdpef36 Overview: Oncology history (per Dr. 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 Hodgkin's disease, aqaaclrdnpb84Vaginal dbgougxt18/07/2016 Overview: --likely from thrombocytopenia. No menses in prior 8 months. 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 Premature hoskhgxrw37/07/2016Postmenopausal atrophic xomxfpgkx86/07/2016 Nbbhmxieagr37/07/2016documented as of this encounter (statuses as of 05/15/2022) [facility] History of Past illness Narrative* ProblemNoted Date Resolved DateMenorrhagia with regular cycle Overview: Added automatically from request for surgery [id number] History of pulmonary dlqwecav45Neoplastic (malignant) related ezltbna38Hidradenitis wpnvhmzdbsb19Vitamin D ityvfyqfqo65HyperCKemiaElevated aldolase levelChronic pain of both kneesPain in joint, multiple sitesMyalgiaFatigue Malaise and ztyxkry03Gastroesophageal reflux disease without wcshlbnycef44Laryngitis02/23/2015 12/26/2015Drug/chem diab w neuro comp w diab autonm (poly)fsoqfrorub45/10/2015 12/26/2015Papanicolaou smear of cervix with low grade squamous intraepithelial lesion (LGSIL)Pain in joint, ankle and foot09/27/2014 12/26/2015ASCUS favor nheipgiso43Visit for gynecologic evqomsfmpwq60Postmenopausal HRT (hormone replacement therapy) Overview: offered Gait ugqnlpvcdiu96Weakness of both legs Sprain of ankle, leftPCP (pneumocystis jiroveci pneumonia) Acute respiratory failure with yhkixaeuc47 Overview: Increased O2 requirement overnight (2L to 5L) - bronchoscopy with BAL/TBLB tomorrow 8 AM. - NPO from midnight - hold tonight dose of lovenox. Radiation ioxdovqjtde33 Overview: 40 mg prednisone daily Immunodeficiency with predominant T-cell defect, igsktgzfbyg45 Urgency of vpekrnrsknh51Urinary sizqdceyx08 Arm pain, leftBack pain without uksofbkrn18/19/2014 12/26/2015Abnormal finding on tanzhxm12Elevated sed rate Hyperpigmentation of skin Overview: --resolved --bilateral breast tissue and axilla --order mycolog cream --monitor Pochuxrf41 Overview: - c diff pending Mucositis (ulcerative) due to antineoplastic Overview: --improved --oxy prn --mouth care measures. Vvupgi63 Overview: --improved with protonix Elevated LFTs Overview: --increased AST ALT during chemo, resolved. Excess fluid djpfyx61 Overview: --diuresis as needed --continue to monitor volume status CINV (chemotherapy-induced nausea and vomiting) Overview: --Resolved --Ativan PRN (none used) Peripheral nntpjeheeg74 Overview: --gabapentin 300mg TID with increased symptoms, bedtime dose of gabapentin increased to 600mg with improvement reported, continue DVT wdbyznapyyf80 Overview: --platelet count decreasing, d/c heparin SQ --encourage ambulation Wyjvbrgk87 Overview: --ambien PRN at HS, with relief, but with vivid dreams, ambien d/c --restoril at 30mg PRN at HS with relief, continue Chronic chest pain Overview: --now resolved --since Hodgkin lymphoma diagnosis per patient Hospital discharge follow-up Overview: --Patient will need to follow up with Dr. Unger after discharge Lpjdgrkzfag39 Overview: --patient taking atenolol 100mg BID at home, now BP running lower, decreased atenolol dose to 50mg BID with hypotension. --increase to 75mg BID, d/t tachycardia(HRs >110 while afebrile), HR now controlled, continue --monitor closely Electrolyte and fluid disorders not elsewhere twvuwfdhld91 DISPOSITION AND FOLLOW-UP Overview: 32 yo female from [place], [place]. Family involved with care, at bedside. 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 will start PO pain meds today 10/27. tolerating percocet, pain relatively well controlled. Hodgkin's disease with nodular wvurebpcx19 Overview: Oncology history (per Dr. 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 Hodgkin's disease, juemynmsela37Vaginal /07/2016 Overview: --likely from thrombocytopenia. No menses in prior 8 months. 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 Premature jmemaeprc82/07/2016Postmenopausal atrophic mtfjhoppb02/07/2016 Oellftxawlm95/07/2016documented as of this encounter (statuses as of 05/21/2022) [facility]2018 History of Past illness Narrative* ProblemNoted Date Resolved DateMenorrhagia with regular cycle Overview: Added automatically from request for surgery [id number] History of pulmonary wqsyjrzp10/08/Neoplastic (malignant) related xqhgsjj46Hidradenitis kqvkizfryep37Vitamin D ejhlmfwuqx96HyperCKemiaElevated aldolase levelChronic pain of both kneesPain in joint, multiple sitesMyalgiaFatigue Malaise and fgpctnc13Gastroesophageal reflux disease without rnpeplcqewp43Laryngitis02/23/2015 12/26/2015Drug/chem diab w neuro comp w diab autonm (poly)pupawhowan86/10/2015 12/26/2015Papanicolaou smear of cervix with low grade squamous intraepithelial lesion (LGSIL)Pain in joint, ankle and foot09/27/2014 12/26/2015ASCUS favor wyyexgkww16Visit for gynecologic ynjkpdosfoz00Postmenopausal HRT (hormone replacement therapy) Overview: offered Gait hahtbyuantx96Weakness of both legs07/22/ Sprain of ankle, leftPCP (pneumocystis jiroveci pneumonia) Acute respiratory failure with mzaohpvuz39 Overview: Increased O2 requirement overnight (2L to 5L) - bronchoscopy with BAL/TBLB tomorrow 8 AM. - NPO from midnight - hold tonight dose of lovenox. Radiation fuzyyoqkare80 Overview: 40 mg prednisone daily Immunodeficiency with predominant T-cell defect, xjjyvensseq53 Urgency of earakroljea46Urinary jiykxbfon68 Arm pain, leftBack pain without dbtnwqdxo85/19/2014 12/26/2015Abnormal finding on mohnxun15Elevated sed rate Hyperpigmentation of skin Overview: --resolved --bilateral breast tissue and axilla --order mycolog cream --monitor Uemhyiux75 Overview: - c diff pending Mucositis (ulcerative) due to antineoplastic yshygee21 Overview: --improved --oxy prn --mouth care measures. Xfqtev64 Overview: --improved with protonix Elevated LFTs Overview: --increased AST ALT during chemo, resolved. Excess fluid jbxeqk30 Overview: --diuresis as needed --continue to monitor volume status CINV (chemotherapy-induced nausea and vomiting) Overview: --Resolved --Ativan PRN (none used) Peripheral tenavznqkf70 Overview: --gabapentin 300mg TID with increased symptoms, bedtime dose of gabapentin increased to 600mg with improvement reported, continue DVT Overview: --platelet count decreasing, d/c heparin SQ --encourage ambulation Nsdozaey67 Overview: --ambien PRN at HS, with relief, but with vivid dreams, ambien d/c --restoril at 30mg PRN at HS with relief, continue Chronic chest pain Overview: --now resolved --since Hodgkin lymphoma diagnosis per patient Hospital discharge follow-up Overview: --Patient will need to follow up with Dr. Unger after discharge Rlanqcenjot27 Overview: --patient taking atenolol 100mg BID at home, now BP running lower, decreased atenolol dose to 50mg BID with hypotension. --increase to 75mg BID, d/t tachycardia(HRs >110 while afebrile), HR now controlled, continue --monitor closely Electrolyte and fluid disorders not elsewhere yoyxuvtchb33 DISPOSITION AND FOLLOW-UP Overview: 32 yo female from [place], [place]. Family involved with care, at bedside. 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 will start PO pain meds today 10/27. tolerating percocet, pain relatively well controlled. Hodgkin's disease with nodular xpxgtpona10 Overview: Oncology history (per Dr. 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 Hodgkin's disease, zzujafzhpxd59/18/201203/Vaginal lswobswy34/07/2016 Overview: --likely from thrombocytopenia. No menses in prior 8 months. 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 Premature zqmwbowgk94/07/2016Postmenopausal atrophic mggzwnjyg14/07/2016 Zvdvewpcbfk11/07/2016documented as of this encounter (statuses as of 05/21/2022) [facility] History of Past illness Narrative* ProblemNoted Date Resolved DateMenorrhagia with regular cycle Overview: Added automatically from request for surgery [id number] History of pulmonary crcmcqjf49Neoplastic (malignant) related ekpqlyx06Hidradenitis twkcazqfezn51Vitamin D klfyjeleoh50HyperCKemiaElevated aldolase levelChronic pain of both kneesPain in joint, multiple sitesMyalgiaFatigue Malaise and reoxyuh50Gastroesophageal reflux disease without uycounnjlpe61Laryngitis02/23/2015 12/26/2015Drug/chem diab w neuro comp w diab autonm (poly)lcewxuzsah86/10/2015 12/26/2015Papanicolaou smear of cervix with low grade squamous intraepithelial lesion (LGSIL)Pain in joint, ankle and foot09/27/2014 12/26/2015ASCUS favor jwaoemaqm62Visit for gynecologic zwfbhewtkma63Postmenopausal HRT (hormone replacement therapy) Overview: offered Gait dbwixgtslmd97Weakness of both legs Sprain of ankle, leftPCP (pneumocystis jiroveci pneumonia) Acute respiratory failure with Overview: Increased O2 requirement overnight (2L to 5L) - bronchoscopy with BAL/TBLB tomorrow 8 AM. - NPO from midnight - hold tonight dose of lovenox. Radiation bjpvmpldxpo51 Overview: 40 mg prednisone daily Immunodeficiency with predominant T-cell defect, xtvoqqhkceb20 Urgency of rchphnszgtg89Urinary lqcrndecz62 Arm pain, leftBack pain without hrwohaoig76/19/2014 12/26/2015Abnormal finding on pytkkkx40Elevated sed rate Hyperpigmentation of skin Overview: --resolved --bilateral breast tissue and axilla --order mycolog cream --monitor Emhexhzj77 Overview: - c diff pending Mucositis (ulcerative) due to antineoplastic cqmkegk68 Overview: --improved --oxy prn --mouth care measures. Ujlgbc11 Overview: --improved with protonix Elevated LFTs Overview: --increased AST ALT during chemo, resolved. Excess fluid Overview: --diuresis as needed --continue to monitor volume status CINV (chemotherapy-induced nausea and vomiting) Overview: --Resolved --Ativan PRN (none used) Peripheral emoiibztpi32 Overview: --gabapentin 300mg TID with increased symptoms, bedtime dose of gabapentin increased to 600mg with improvement reported, continue DVT odzkkmvaswe44 Overview: --platelet count decreasing, d/c heparin SQ --encourage ambulation Zqoehqkk76 Overview: --ambien PRN at HS, with relief, but with vivid dreams, ambien d/c --restoril at 30mg PRN at HS with relief, continue Chronic chest pain Overview: --now resolved --since Hodgkin lymphoma diagnosis per patient Hospital discharge follow-up Overview: --Patient will need to follow up with Dr. Unger after discharge Chgchdswomy43 Overview: --patient taking atenolol 100mg BID at home, now BP running lower, decreased atenolol dose to 50mg BID with hypotension. --increase to 75mg BID, d/t tachycardia(HRs >110 while afebrile), HR now controlled, continue --monitor closely Electrolyte and fluid disorders not elsewhere qstayjthtn54 DISPOSITION AND FOLLOW-UP Overview: 32 yo female from [place], [place]. Family involved with care, at bedside. 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 will start PO pain meds today 10/27. tolerating percocet, pain relatively well controlled. Hodgkin's disease with nodular ajiynnnno97 Overview: Oncology history (per Dr. 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 Hodgkin's disease, efurgzfijte03Vaginal ociljeqg75/07/2016 Overview: --likely from thrombocytopenia. No menses in prior 8 months. 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 Premature okrqqfkde75/07/2016Postmenopausal atrophic textupfsj15/07/2016 Dzubhdfmwbh72/07/2016documented as of this encounter (statuses as of 06/11/2022) [facility]2018 History of Past illness Narrative* ProblemNoted Date Resolved DateMenorrhagia with regular cycle Overview: Added automatically from request for surgery [id number] History of pulmonary yczvgcrs28Neoplastic (malignant) related jlsjccu92Hidradenitis ijqlzssrmaz37Vitamin D ctopzqdjco01HyperCKemiaElevated aldolase levelChronic pain of both kneesPain in joint, multiple sitesMyalgiaFatigue Malaise and sqhomsn61Gastroesophageal reflux disease without ifkhzatbezu58Laryngitis02/23/2015 12/26/2015Drug/chem diab w neuro comp w diab autonm (poly)krcsodzaza78/10/2015 12/26/2015Papanicolaou smear of cervix with low grade squamous intraepithelial lesion (LGSIL)Pain in joint, ankle and foot09/27/2014 12/26/2015ASCUS favor pwmsxuxcz93Visit for gynecologic skbukuzaghp49Postmenopausal HRT (hormone replacement therapy) Overview: offered Gait mgkjeujccxy09Weakness of both legs Sprain of ankle, leftPCP (pneumocystis jiroveci pneumonia) Acute respiratory failure with ypdpwkcrh10 Overview: Increased O2 requirement overnight (2L to 5L) - bronchoscopy with BAL/TBLB tomorrow 8 AM. - NPO from midnight - hold tonight dose of lovenox. Radiation xflhdhouuhe77 Overview: 40 mg prednisone daily Immunodeficiency with predominant T-cell defect, utyyanvtgba94 Urgency of hlyhtmvjmue96Urinary hzgakjfwu74 Arm pain, leftBack pain without itqnshzyq37/19/2014 12/26/2015Abnormal finding on cyjrabb85Elevated sed rate Hyperpigmentation of skin Overview: --resolved --bilateral breast tissue and axilla --order mycolog cream --monitor Kgfrthse14 Overview: - c diff pending Mucositis (ulcerative) due to antineoplastic lzkiyhz75 Overview: --improved --oxy prn --mouth care measures. Ksvvwm38 Overview: --improved with protonix Elevated LFTs Overview: --increased AST ALT during chemo, resolved. Excess fluid gidaaq06 Overview: --diuresis as needed --continue to monitor volume status CINV (chemotherapy-induced nausea and vomiting) Overview: --Resolved --Ativan PRN (none used) Peripheral Overview: --gabapentin 300mg TID with increased symptoms, bedtime dose of gabapentin increased to 600mg with improvement reported, continue DVT iwecfheglld68 Overview: --platelet count decreasing, d/c heparin SQ --encourage ambulation Trlmcieb42 Overview: --ambien PRN at HS, with relief, but with vivid dreams, ambien d/c --restoril at 30mg PRN at HS with relief, continue Chronic chest pain Overview: --now resolved --since Hodgkin lymphoma diagnosis per patient Hospital discharge follow-up Overview: --Patient will need to follow up with Dr. Unger after discharge Jzyfuglptao19 Overview: --patient taking atenolol 100mg BID at home, now BP running lower, decreased atenolol dose to 50mg BID with hypotension. --increase to 75mg BID, d/t tachycardia(HRs >110 while afebrile), HR now controlled, continue --monitor closely Electrolyte and fluid disorders not elsewhere sbxdffepqz73 DISPOSITION AND FOLLOW-UP Overview: 32 yo female from [place], [place]. Family involved with care, at bedside. 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 will start PO pain meds today 10/27. tolerating percocet, pain relatively well controlled. Hodgkin's disease with nodular fejzwdroa94 Overview: Oncology history (per Dr. 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 Hodgkin's disease, qbbcrzjjmtt65Vaginal wgauhkyh88/07/2016 Overview: --likely from thrombocytopenia. No menses in prior 8 months. 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 Premature esoqifhws45/07/2016Postmenopausal atrophic rxgfdzunw27/07/2016 Qahhftnrjjp33/07/2016documented as of this encounter (statuses as of 06/12/2022) [facility] History of Past illness Narrative* ProblemNoted Date Resolved DateMenorrhagia with regular cycle Overview: Added automatically from request for surgery [id number] History of pulmonary txnzpvji21Neoplastic (malignant) related mmfgzro94Hidradenitis dgfhlvvprbu74Vitamin D egbmzjbzid66HyperCKemiaElevated aldolase levelChronic pain of both kneesPain in joint, multiple sitesMyalgiaFatigue Malaise and slbpggs41Gastroesophageal reflux disease without wfigooymmmr63Laryngitis02/23/2015 12/26/2015Drug/chem diab w neuro comp w diab autonm (poly)zsifagujcd52/10/2015 12/26/2015Papanicolaou smear of cervix with low grade squamous intraepithelial lesion (LGSIL)Pain in joint, ankle and foot09/27/2014 12/26/2015ASCUS favor jrbuyghaf23Visit for gynecologic oluqkzferys92Postmenopausal HRT (hormone replacement therapy) Overview: offered Gait srmeysyjxng45Weakness of both legs Sprain of ankle, leftPCP (pneumocystis jiroveci pneumonia) Acute respiratory failure with Overview: Increased O2 requirement overnight (2L to 5L) - bronchoscopy with BAL/TBLB tomorrow 8 AM. - NPO from midnight - hold tonight dose of lovenox. Radiation bradttfjebs50 Overview: 40 mg prednisone daily Immunodeficiency with predominant T-cell defect, pntehcsypho54 Urgency of hcjqrpoxqzz44Urinary czafdcvop76 Arm pain, leftBack pain without tbnhabvco90/19/2014 12/26/2015Abnormal finding on fvnzraj83Elevated sed rate Hyperpigmentation of skin Overview: --resolved --bilateral breast tissue and axilla --order mycolog cream --monitor Nfoiljdy05 Overview: - c diff pending Mucositis (ulcerative) due to antineoplastic bjheoye85 Overview: --improved --oxy prn --mouth care measures. Gazvwz75 Overview: --improved with protonix Elevated LFTs Overview: --increased AST ALT during chemo, resolved. Excess fluid Overview: --diuresis as needed --continue to monitor volume status CINV (chemotherapy-induced nausea and vomiting) Overview: --Resolved --Ativan PRN (none used) Peripheral Overview: --gabapentin 300mg TID with increased symptoms, bedtime dose of gabapentin increased to 600mg with improvement reported, continue DVT unsdgrqfybi95 Overview: --platelet count decreasing, d/c heparin SQ --encourage ambulation Fjpjylft71 Overview: --ambien PRN at HS, with relief, but with vivid dreams, ambien d/c --restoril at 30mg PRN at HS with relief, continue Chronic chest pain Overview: --now resolved --since Hodgkin lymphoma diagnosis per patient Hospital discharge follow-up Overview: --Patient will need to follow up with Dr. Unger after discharge Cghhyprfuzt13 Overview: --patient taking atenolol 100mg BID at home, now BP running lower, decreased atenolol dose to 50mg BID with hypotension. --increase to 75mg BID, d/t tachycardia(HRs >110 while afebrile), HR now controlled, continue --monitor closely Electrolyte and fluid disorders not elsewhere combpcxbxj47 DISPOSITION AND FOLLOW-UP Overview: 32 yo female from [place]. Family involved with care, at bedside. 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 will start PO pain meds today 10/27. tolerating percocet, pain relatively well controlled. Hodgkin's disease with nodular mgbsnwogd66 Overview: Oncology history (per Dr. 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 Hodgkin's disease, srrguxcwufo42Vaginal mpbwakfo93/07/2016 Overview: --likely from thrombocytopenia. No menses in prior 8 months. 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 Premature bkkojwcsb88/07/2016Postmenopausal atrophic /07/2016 Ayaxbtnpcie51/07/2016documented as of this encounter (statuses as of 06/12/2022) [facility] History of Past illness Narrative* ProblemNoted Date Resolved DateMenorrhagia with regular cycle Overview: Added automatically from request for surgery [id number] History of pulmonary sjtvidal87Neoplastic (malignant) related pmqjvnx47Hidradenitis sxdxfiszolt31Vitamin D oddbfhcvbm36HyperCKemiaElevated aldolase levelChronic pain of both kneesPain in joint, multiple sitesMyalgiaFatigue Malaise and ruzueap79Gastroesophageal reflux disease without wwdjeyytuyc97Laryngitis02/23/2015 12/26/2015Drug/chem diab w neuro comp w diab autonm (poly)yuhooshjdn65/10/2015 12/26/2015Papanicolaou smear of cervix with low grade squamous intraepithelial lesion (LGSIL)Pain in joint, ankle and foot09/27/2014 12/26/2015ASCUS favor pjzgzcgzl91Visit for gynecologic fmvavrenqpb89Postmenopausal HRT (hormone replacement therapy) Overview: offered Gait cbnuurblewx89Weakness of both legs07/22/ Sprain of ankle, leftPCP (pneumocystis jiroveci pneumonia) Acute respiratory failure with ilpsnoseg18 Overview: Increased O2 requirement overnight (2L to 5L) - bronchoscopy with BAL/TBLB tomorrow 8 AM. - NPO from midnight - hold tonight dose of lovenox. Radiation gvqdoydyntv75 Overview: 40 mg prednisone daily Immunodeficiency with predominant T-cell defect, hqmfcathfao68 Urgency of fzdbcjoxpko34Urinary wljbrbonl90 Arm pain, leftBack pain without duzrauarx42/19/2014 12/26/2015Abnormal finding on ubrchjj98Elevated sed rate Hyperpigmentation of skin Overview: --resolved --bilateral breast tissue and axilla --order mycolog cream --monitor Xlwjdysp08 Overview: - c diff pending Mucositis (ulcerative) due to antineoplastic tselzaw54 Overview: --improved --oxy prn --mouth care measures. Fvkwbn36 Overview: --improved with protonix Elevated LFTs Overview: --increased AST ALT during chemo, resolved. Excess fluid avvnms35 Overview: --diuresis as needed --continue to monitor volume status CINV (chemotherapy-induced nausea and vomiting) Overview: --Resolved --Ativan PRN (none used) Peripheral cwkjyqmcim28 Overview: --gabapentin 300mg TID with increased symptoms, bedtime dose of gabapentin increased to 600mg with improvement reported, continue DVT rxjywmvevno91 Overview: --platelet count decreasing, d/c heparin SQ --encourage ambulation Xwbfvcfm08 Overview: --ambien PRN at HS, with relief, but with vivid dreams, ambien d/c --restoril at 30mg PRN at HS with relief, continue Chronic chest pain Overview: --now resolved --since Hodgkin lymphoma diagnosis per patient Hospital discharge follow-up Overview: --Patient will need to follow up with Dr. Unger after discharge Fhzakfmwqxz72 Overview: --patient taking atenolol 100mg BID at home, now BP running lower, decreased atenolol dose to 50mg BID with hypotension. --increase to 75mg BID, d/t tachycardia(HRs >110 while afebrile), HR now controlled, continue --monitor closely Electrolyte and fluid disorders not elsewhere qkqqwpzsek00 DISPOSITION AND FOLLOW-UP Overview: 32 yo female from [place], [place]. Family involved with care, at bedside. 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 will start PO pain meds today 10/27. tolerating percocet, pain relatively well controlled. Hodgkin's disease with nodular wbpwrppem96 Overview: Oncology history (per Dr. 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 Hodgkin's disease, dkcuwjtzmnc65Vaginal ssavmurj60/07/2016 Overview: --likely from thrombocytopenia. No menses in prior 8 months. 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 Premature ytlfzrxgg77/07/2016Postmenopausal atrophic edgkdxsmo66/07/2016 Rcycwhkxfgc61/07/2016documented as of this encounter (statuses as of 06/12/2022) [facility]2018 History of Past illness Narrative* ProblemNoted Date Resolved DateMenorrhagia with regular cycle Overview: Added automatically from request for surgery [id number] History of pulmonary xvubfbrc44Neoplastic (malignant) related npmsuar50Hidradenitis uehcivbwuaw31Vitamin D qxwnlpaaho89HyperCKemiaElevated aldolase levelChronic pain of both kneesPain in joint, multiple sitesMyalgiaFatigue Malaise and xbdkhjy79Gastroesophageal reflux disease without idifuhegebj73Laryngitis02/23/2015 12/26/2015Drug/chem diab w neuro comp w diab autonm (poly)ujelukzxkg40/10/2015 12/26/2015Papanicolaou smear of cervix with low grade squamous intraepithelial lesion (LGSIL)Pain in joint, ankle and foot09/27/2014 12/26/2015ASCUS favor gouwgagey11Visit for gynecologic ywrfshghacc38Postmenopausal HRT (hormone replacement therapy) Overview: offered Gait kjwhbiufzqq76Weakness of both legs Sprain of ankle, leftPCP (pneumocystis jiroveci pneumonia) Acute respiratory failure with omhtwmkot84 Overview: Increased O2 requirement overnight (2L to 5L) - bronchoscopy with BAL/TBLB tomorrow 8 AM. - NPO from midnight - hold tonight dose of lovenox. Radiation qzzificalwx22 Overview: 40 mg prednisone daily Immunodeficiency with predominant T-cell defect, srzlpdgdyuf18 Urgency of dgvfmhtorii35Urinary edilgxveb98 Arm pain, leftBack pain without /19/2014 12/26/2015Abnormal finding on wgxzsow59Elevated sed rate Hyperpigmentation of skin Overview: --resolved --bilateral breast tissue and axilla --order mycolog cream --monitor Sadsoowg76 Overview: - c diff pending Mucositis (ulcerative) due to antineoplastic izxmcah80 Overview: --improved --oxy prn --mouth care measures. Lconel08 Overview: --improved with protonix Elevated LFTs Overview: --increased AST ALT during chemo, resolved. Excess fluid itiitq15 Overview: --diuresis as needed --continue to monitor volume status CINV (chemotherapy-induced nausea and vomiting) Overview: --Resolved --Ativan PRN (none used) Peripheral bgsbugljju94 Overview: --gabapentin 300mg TID with increased symptoms, bedtime dose of gabapentin increased to 600mg with improvement reported, continue DVT eozpfpxkotl18 Overview: --platelet count decreasing, d/c heparin SQ --encourage ambulation Zppcdhzg60 Overview: --ambien PRN at HS, with relief, but with vivid dreams, ambien d/c --restoril at 30mg PRN at HS with relief, continue Chronic chest pain Overview: --now resolved --since Hodgkin lymphoma diagnosis per patient Hospital discharge follow-up Overview: --Patient will need to follow up with Dr. Unger after discharge Pheisyyfqpe34 Overview: --patient taking atenolol 100mg BID at home, now BP running lower, decreased atenolol dose to 50mg BID with hypotension. --increase to 75mg BID, d/t tachycardia(HRs >110 while afebrile), HR now controlled, continue --monitor closely Electrolyte and fluid disorders not elsewhere axswnbmelt01 DISPOSITION AND FOLLOW-UP Overview: 32 yo female from [place], [place]. Family involved with care, at bedside. 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 will start PO pain meds today 10/27. tolerating percocet, pain relatively well controlled. Hodgkin's disease with nodular vdwxcpzon26 Overview: Oncology history (per Dr. 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 Hodgkin's disease, twwzbslpebe77Vaginal rejihbql05/07/2016 Overview: --likely from thrombocytopenia. No menses in prior 8 months. 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 Premature xvnayiwsh16/07/2016Postmenopausal atrophic hqtughhqc27/07/2016 Yexzrbatcto33/07/2016documented as of this encounter (statuses as of 06/15/2022) [facility]2018 History of Past illness Narrative* ProblemNoted Date Resolved DateMenorrhagia with regular cycle Overview: Added automatically from request for surgery [id number] History of pulmonary smbdlncz11Neoplastic (malignant) related zseynfg97Hidradenitis rpcrinywvhg14Vitamin D taufvlgngp83HyperCKemiaElevated aldolase levelChronic pain of both kneesPain in joint, multiple sitesMyalgiaFatigue Malaise and nulxowe49Gastroesophageal reflux disease without azsxhdutfam16Laryngitis02/23/2015 12/26/2015Drug/chem diab w neuro comp w diab autonm (poly)rpczxawhyj68/10/2015 12/26/2015Papanicolaou smear of cervix with low grade squamous intraepithelial lesion (LGSIL)Pain in joint, ankle and foot09/27/2014 12/26/2015ASCUS favor qvkccpxhk55Visit for gynecologic khgmjhvowsv08Postmenopausal HRT (hormone replacement therapy) Overview: offered Gait ccfmxcewzil68Weakness of both legs Sprain of ankle, leftPCP (pneumocystis jiroveci pneumonia) Acute respiratory failure with uappbfykz75 Overview: Increased O2 requirement overnight (2L to 5L) - bronchoscopy with BAL/TBLB tomorrow 8 AM. - NPO from midnight - hold tonight dose of lovenox. 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 Kypwcg37 Overview: --improved with protonix Elevated LFTs Overview: --increased AST ALT during chemo, resolved. Excess fluid lrfqob41 Overview: --diuresis as needed --continue to monitor volume status CINV (chemotherapy-induced nausea and vomiting) Overview: --Resolved --Ativan PRN (none used) Peripheral yvsbepnhxg98 Overview: --gabapentin 300mg TID with increased symptoms, bedtime dose of gabapentin increased to 600mg with improvement reported, continue DVT iurzcyeywbh43 Overview: --platelet count decreasing, d/c heparin SQ --encourage ambulation Fkzibowt83 Overview: --ambien PRN at HS, with relief, but with vivid dreams, ambien d/c --restoril at 30mg PRN at HS with relief, continue Chronic chest pain Overview: --now resolved --since Hodgkin lymphoma diagnosis per patient Hospital discharge follow-up Overview: --Patient will need to follow up with Dr. Unger after discharge Qrspvadagfi30 Overview: --patient taking atenolol 100mg BID at home, now BP running lower, decreased atenolol dose to 50mg BID with hypotension. --increase to 75mg BID, d/t tachycardia(HRs >110 while afebrile), HR now controlled, continue --monitor closely Electrolyte and fluid disorders not elsewhere jpsyuvmbut81 DISPOSITION AND FOLLOW-UP Overview: 32 yo female from [place], [place]. Family involved with care, at bedside. 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 will start PO pain meds today 10/27. tolerating percocet, pain relatively well controlled. Hodgkin's disease with nodular nidslenxo56 Overview: Oncology history (per Dr. 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 Hodgkin's disease, yxjjzosvwea92Vaginal pwruttru48/07/2016 Overview: --likely from thrombocytopenia. No menses in prior 8 months. 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 Premature gxswbgokx11/07/2016Postmenopausal atrophic eofpliodm50/07/2016 Zuaiyunivdw44/07/2016documented as of this encounter (statuses as of 07/17/2022) [facility]2018 History of Past illness Narrative* ProblemNoted Date Resolved DateMenorrhagia with regular cycle Overview: Added automatically from request for surgery [id number] History of pulmonary ttbkljuo60Neoplastic (malignant) related zxnzznv52Hidradenitis nxpmyvxtkck74Vitamin D xseqbdlpyf96HyperCKemiaElevated aldolase levelChronic pain of both kneesPain in joint, multiple sitesMyalgiaFatigue Malaise and zcqihqo11Gastroesophageal reflux disease without ovzsrwzjgqb27Laryngitis02/23/2015 12/26/2015Drug/chem diab w neuro comp w diab autonm (poly)pnumczherr54/10/2015 12/26/2015Papanicolaou smear of cervix with low grade squamous intraepithelial lesion (LGSIL)Pain in joint, ankle and foot09/27/2014 12/26/2015ASCUS favor tfyausjhr09Visit for gynecologic dbnysryysoh76Postmenopausal HRT (hormone replacement therapy) Overview: offered Gait ofutdjolijr97Weakness of both legs Sprain of ankle, leftPCP (pneumocystis jiroveci pneumonia) Acute respiratory failure with wezwpnnmb00 Overview: Increased O2 requirement overnight (2L to 5L) - bronchoscopy with BAL/TBLB tomorrow 8 AM. - NPO from midnight - hold tonight dose of lovenox. Radiation ehzzkimjejo20 Overview: 40 mg prednisone daily Immunodeficiency with predominant T-cell defect, vffuyxilhfu06 Urgency of kkgsqzfddda44Urinary gjgblzaqj57 Arm pain, leftBack pain without dziqkaqwa91/19/2014 12/26/2015Abnormal finding on rmhfxym08Elevated sed rate Hyperpigmentation of skin Overview: --resolved --bilateral breast tissue and axilla --order mycolog cream --monitor Ujxytaxr82 Overview: - c diff pending Mucositis (ulcerative) due to antineoplastic hsiyibw36 Overview: --improved --oxy prn --mouth care measures. Iynldz10 Overview: --improved with protonix Elevated LFTs Overview: --increased AST ALT during chemo, resolved. Excess fluid yvkwex27 Overview: --diuresis as needed --continue to monitor volume status CINV (chemotherapy-induced nausea and vomiting) Overview: --Resolved --Ativan PRN (none used) Peripheral neiwgffmwg52 Overview: --gabapentin 300mg TID with increased symptoms, bedtime dose of gabapentin increased to 600mg with improvement reported, continue DVT Overview: --platelet count decreasing, d/c heparin SQ --encourage ambulation Hkvmjthe03 Overview: --ambien PRN at HS, with relief, but with vivid dreams, ambien d/c --restoril at 30mg PRN at HS with relief, continue Chronic chest pain Overview: --now resolved --since Hodgkin lymphoma diagnosis per patient Hospital discharge follow-up Overview: --Patient will need to follow up with Dr. Unger after discharge Neevqtslbyg99 Overview: --patient taking atenolol 100mg BID at home, now BP running lower, decreased atenolol dose to 50mg BID with hypotension. --increase to 75mg BID, d/t tachycardia(HRs >110 while afebrile), HR now controlled, continue --monitor closely Electrolyte and fluid disorders not elsewhere hmmycqmidv40 DISPOSITION AND FOLLOW-UP Overview: 32 yo female from [place], [place]. Family involved with care, at bedside. plan to discharge patient home - will arrange with case management for post op care as needed - follow up in OPD in 7-10 days Post-op pain09/09/363014/08/2015 Overview: currently well controlled with CIGARETTE MACHINE OPERATOR. will start PO pain meds today 10/27. tolerating percocet, pain relatively well controlled. Hodgkin's disease with nodular ncpddmzuu88 Overview: Oncology history (per Dr. 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 Hodgkin's disease, pnwnscvbjbd04Vaginal wkgphoin55/07/2016 Overview: --likely from thrombocytopenia. No menses in prior 8 months. 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 Premature nubkwlkqd82/07/2016Postmenopausal atrophic eccbqzqfu91/07/2016 Dokmuxcdixm87/07/2016documented as of this encounter (statuses as of 07/17/2022) [facility] History of Past illness Narrative* ProblemNoted Date Resolved DateMenorrhagia with regular cycle Overview: Added automatically from request for surgery [id number] History of pulmonary vyeatrwu74Neoplastic (malignant) related biuduud27Hidradenitis iolzqxlmgpe25Vitamin D idfdpqtawn55HyperCKemiaElevated aldolase levelChronic pain of both kneesPain in joint, multiple sitesMyalgiaFatigue Malaise and bqwdkmp81Gastroesophageal reflux disease without ekpvfzgyntw19Laryngitis02/23/2015 12/26/2015Drug/chem diab w neuro comp w diab autonm (poly)tuhitgkqxw34/10/2015 12/26/2015Papanicolaou smear of cervix with low grade squamous intraepithelial lesion (LGSIL)Pain in joint, ankle and foot09/27/2014 12/26/2015ASCUS favor ipmgloosa82Visit for gynecologic elpvihimmxc80Postmenopausal HRT (hormone replacement therapy) Overview: offered Gait oufctfzjlzx28Weakness of both legs Sprain of ankle, leftPCP (pneumocystis jiroveci pneumonia) Acute respiratory failure with ojundtprf77 Overview: Increased O2 requirement overnight (2L to 5L) - bronchoscopy with BAL/TBLB tomorrow 8 AM. - NPO from midnight - hold tonight dose of lovenox. Radiation csfgirsgxwz47 Overview: 40 mg prednisone daily Immunodeficiency with predominant T-cell defect, yzrbwqxgnjb59 Urgency of vkjpgfbtbdw12Urinary awkbudfav68 Arm pain, leftBack pain without lvbbvooxe73/19/2014 12/26/2015Abnormal finding on gdbltxr34Elevated sed rate Hyperpigmentation of skin Overview: --resolved --bilateral breast tissue and axilla --order mycolog cream --monitor Xqhosqpm84 Overview: - c diff pending Mucositis (ulcerative) due to antineoplastic xpnttbi42 Overview: --improved --oxy prn --mouth care measures. Lrqxfj58 Overview: --improved with protonix Elevated LFTs Overview: --increased AST ALT during chemo, resolved. Excess fluid dgwutq82 Overview: --diuresis as needed --continue to monitor volume status CINV (chemotherapy-induced nausea and vomiting) Overview: --Resolved --Ativan PRN (none used) Peripheral rszuotpsbn02 Overview: --gabapentin 300mg TID with increased symptoms, bedtime dose of gabapentin increased to 600mg with improvement reported, continue DVT ryxuygzxkbq67 Overview: --platelet count decreasing, d/c heparin SQ --encourage ambulation Pprlwvmk59 Overview: --ambien PRN at HS, with relief, but with vivid dreams, ambien d/c --restoril at 30mg PRN at HS with relief, continue Chronic chest pain Overview: --now resolved --since Hodgkin lymphoma diagnosis per patient Hospital discharge follow-up Overview: --Patient will need to follow up with Dr. Unger after discharge Yubihtrgqxc36 Overview: --patient taking atenolol 100mg BID at home, now BP running lower, decreased atenolol dose to 50mg BID with hypotension. --increase to 75mg BID, d/t tachycardia(HRs >110 while afebrile), HR now controlled, continue --monitor closely Electrolyte and fluid disorders not elsewhere bbwjllpufz32 DISPOSITION AND FOLLOW-UP Overview: 32 yo female from [place]. Family involved with care, at bedside. 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 will start PO pain meds today 10/27. tolerating percocet, pain relatively well controlled. Hodgkin's disease with nodular uhtnbvdfe01 Overview: Oncology history (per Dr. 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 Hodgkin's disease, puyqbvohgns80Vaginal jbzwiuny95/07/2016 Overview: --likely from thrombocytopenia. No menses in prior 8 months. 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 Premature cekbgclgp75/07/2016Postmenopausal atrophic rjnywnvba39/07/2016 Anwkxatnjzd53/07/2016documented as of this encounter (statuses as of 07/18/2022) [place] [address]-26-2018 History of Past illness Narrative* ProblemNoted Date Resolved DateMenorrhagia with regular cycle Overview: Added automatically from request for surgery [id number] History of pulmonary xoqbozff71Neoplastic (malignant) related cpdnxux19Hidradenitis wfvfifzjdeh80Vitamin D oynucwjimh81HyperCKemiaElevated aldolase levelChronic pain of both kneesPain in joint, multiple sitesMyalgiaFatigue Malaise and xffqbva57Gastroesophageal reflux disease without ltruxnnmzhs00Laryngitis02/23/2015 12/26/2015Drug/chem diab w neuro comp w diab autonm (poly)ocienwmjrk32/10/2015 12/26/2015Papanicolaou smear of cervix with low grade squamous intraepithelial lesion (LGSIL)Pain in joint, ankle and foot09/27/2014 12/26/2015ASCUS favor qecpzzofo97Visit for gynecologic akxeffjsdky07Postmenopausal HRT (hormone replacement therapy) Overview: offered Gait jvhsokehrdf38Weakness of both legs Sprain of ankle, leftPCP (pneumocystis jiroveci pneumonia) Acute respiratory failure with Overview: Increased O2 requirement overnight (2L to 5L) - bronchoscopy with BAL/TBLB tomorrow 8 AM. - NPO from midnight - hold tonight dose of lovenox. Radiation nkgfooxwjvx12 Overview: 40 mg prednisone daily Immunodeficiency with predominant T-cell defect, kdamptlsepi91 Urgency of mdtwweyzocu13Urinary qrevieguo90 Arm pain, leftBack pain without fsnzxmpxo01/19/2014 12/26/2015Abnormal finding on dssoorg66Elevated sed rate Hyperpigmentation of skin Overview: --resolved --bilateral breast tissue and axilla --order mycolog cream --monitor Oobxviah49 Overview: - c diff pending Mucositis (ulcerative) due to antineoplastic tpyadpn16 Overview: --improved --oxy prn --mouth care measures. Pclhbr10 Overview: --improved with protonix Elevated LFTs Overview: --increased AST ALT during chemo, resolved. Excess fluid gewhpl90 Overview: --diuresis as needed --continue to monitor volume status CINV (chemotherapy-induced nausea and vomiting) Overview: --Resolved --Ativan PRN (none used) Peripheral wrpbiklexh99 Overview: --gabapentin 300mg TID with increased symptoms, bedtime dose of gabapentin increased to 600mg with improvement reported, continue DVT vxtvzhihihv87 Overview: --platelet count decreasing, d/c heparin SQ --encourage ambulation Hnjbdjzl39 Overview: --ambien PRN at HS, with relief, but with vivid dreams, ambien d/c --restoril at 30mg PRN at HS with relief, continue Chronic chest pain Overview: --now resolved --since Hodgkin lymphoma diagnosis per patient Hospital discharge follow-up Overview: --Patient will need to follow up with Dr. Unger after discharge Sumogkwzabh33 Overview: --patient taking atenolol 100mg BID at home, now BP running lower, decreased atenolol dose to 50mg BID with hypotension. --increase to 75mg BID, d/t tachycardia(HRs >110 while afebrile), HR now controlled, continue --monitor closely Electrolyte and fluid disorders not elsewhere obytujguho86 DISPOSITION AND FOLLOW-UP Overview: 32 yo female from [place]. Family involved with care, at bedside. 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 will start PO pain meds today 10/27. tolerating percocet, pain relatively well controlled. Hodgkin's disease with nodular qovxsralo28 Overview: Oncology history (per Dr. 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 Hodgkin's disease, zcirtfzgcfj57Vaginal /07/2016 Overview: --likely from thrombocytopenia. No menses in prior 8 months. 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 Premature macovjzwh75/07/2016Postmenopausal atrophic kdmwluanx20/07/2016 Tunhquxdpls20/07/2016documented as of this encounter (statuses as of 07/19/2022) [facility]01[facility]26[facility]2018 History of Past illness Narrative* ProblemNoted Date Resolved DateMenorrhagia with regular cycle Overview: Added automatically from request for surgery [id number] History of pulmonary hdizmqgp30Neoplastic (malignant) related tncroqd85Hidradenitis gsvqsgjdxsq63Vitamin D noblkdderp72HyperCKemiaElevated aldolase levelChronic pain of both kneesPain in joint, multiple sitesMyalgiaFatigue Malaise and asmuyku42Gastroesophageal reflux disease without daekcgbausr11Laryngitis02/23/2015 12/26/2015Drug/chem diab w neuro comp w diab autonm (poly)rewzbyance89/10/2015 12/26/2015Papanicolaou smear of cervix with low grade squamous intraepithelial lesion (LGSIL)Pain in joint, ankle and foot09/27/2014 12/26/2015ASCUS favor nvxzvfdww04Visit for gynecologic bjnhofskdnz52Postmenopausal HRT (hormone replacement therapy) Overview: offered Gait jfoalbiiava84Weakness of both legs Sprain of ankle, leftPCP (pneumocystis jiroveci pneumonia) Acute respiratory failure with Overview: Increased O2 requirement overnight (2L to 5L) - bronchoscopy with BAL/TBLB tomorrow 8 AM. - NPO from midnight - hold tonight dose of lovenox. Radiation xzfgbjhaojq86 Overview: 40 mg prednisone daily Immunodeficiency with predominant T-cell defect, krklarkpxnm18 Urgency of ncfcglpnsdm80Urinary nxarmvolc14 Arm pain, leftBack pain without eyourpicb03/19/2014 12/26/2015Abnormal finding on avksyui22Elevated sed rate Hyperpigmentation of skin Overview: --resolved --bilateral breast tissue and axilla --order mycolog cream --monitor Gwseiusm09 Overview: - c diff pending Mucositis (ulcerative) due to antineoplastic draztpx34 Overview: --improved --oxy prn --mouth care measures. Wokjhi12 Overview: --improved with protonix Elevated LFTs Overview: --increased AST ALT during chemo, resolved. Excess fluid Overview: --diuresis as needed --continue to monitor volume status CINV (chemotherapy-induced nausea and vomiting) Overview: --Resolved --Ativan PRN (none used) Peripheral cqomrqaeox63 Overview: --gabapentin 300mg TID with increased symptoms, bedtime dose of gabapentin increased to 600mg with improvement reported, continue DVT ynptvamdjvz24 Overview: --platelet count decreasing, d/c heparin SQ --encourage ambulation Mcaeecvw70 Overview: --ambien PRN at HS, with relief, but with vivid dreams, ambien d/c --restoril at 30mg PRN at HS with relief, continue Chronic chest pain Overview: --now resolved --since Hodgkin lymphoma diagnosis per patient Hospital discharge follow-up Overview: --Patient will need to follow up with Dr. Unger after discharge Fmmtorwgsmy75 Overview: --patient taking atenolol 100mg BID at home, now BP running lower, decreased atenolol dose to 50mg BID with hypotension. --increase to 75mg BID, d/t tachycardia(HRs >110 while afebrile), HR now controlled, continue --monitor closely Electrolyte and fluid disorders not elsewhere kvpeseteum76 DISPOSITION AND FOLLOW-UP Overview: 32 yo female from [place], [place]. Family involved with care, at bedside. 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 will start PO pain meds today 10/27. tolerating percocet, pain relatively well controlled. Hodgkin's disease with nodular tgjoqcqst85 Overview: Oncology history (per Dr. 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 Hodgkin's disease, svftwyckpjx75Vaginal /07/2016 Overview: --likely from thrombocytopenia. No menses in prior 8 months. 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 Premature /07/2016Postmenopausal atrophic ipamqghjc91/07/2016 Eaovscngbaw17/07/2016documented as of this encounter (statuses as of 07/19/2022) [facility]01-26[facility]2018 History of Past illness Narrative* ProblemNoted Date Resolved DateMenorrhagia with regular cycle Overview: Added automatically from request for surgery [id number] History of pulmonary dvejixin32Neoplastic (malignant) related likdjvc22Hidradenitis komziwrmfxm53Vitamin D fghsbsymtf62HyperCKemiaElevated aldolase levelChronic pain of both kneesPain in joint, multiple sitesMyalgiaFatigue Malaise and ktuqzoe71Gastroesophageal reflux disease without sjpzicfyaau46Laryngitis02/23/2015 12/26/2015Drug/chem diab w neuro comp w diab autonm (poly)/10/2015 12/26/2015Papanicolaou smear of cervix with low grade squamous intraepithelial lesion (LGSIL)Pain in joint, ankle and foot09/27/2014 12/26/2015ASCUS favor tgvtsqxvx00Visit for gynecologic cqblkyovdsv44Postmenopausal HRT (hormone replacement therapy) Overview: offered Gait pkxdzrootfo55Weakness of both legs Sprain of ankle, leftPCP (pneumocystis jiroveci pneumonia) Acute respiratory failure with hjllusbwe19 Overview: Increased O2 requirement overnight (2L to 5L) - bronchoscopy with BAL/TBLB tomorrow 8 AM. - NPO from midnight - hold tonight dose of lovenox. Radiation rnenzvayauv93 Overview: 40 mg prednisone daily Immunodeficiency with predominant T-cell defect, gitpybxjlln13 Urgency of gubbspjuasv09Urinary Arm pain, leftBack pain without foephittv07/19/2014 12/26/2015Abnormal finding on joymyvj35Elevated sed rate Hyperpigmentation of skin Overview: --resolved --bilateral breast tissue and axilla --order mycolog cream --monitor Exdhcplr91 Overview: - c diff pending Mucositis (ulcerative) due to antineoplastic skdjziq32 Overview: --improved --oxy prn --mouth care measures. Orzdch21 Overview: --improved with protonix Elevated LFTs Overview: --increased AST ALT during chemo, resolved. Excess fluid Overview: --diuresis as needed --continue to monitor volume status CINV (chemotherapy-induced nausea and vomiting) Overview: --Resolved --Ativan PRN (none used) Peripheral wxuuukganf88 Overview: --gabapentin 300mg TID with increased symptoms, bedtime dose of gabapentin increased to 600mg with improvement reported, continue DVT ybqbmpbmkee94 Overview: --platelet count decreasing, d/c heparin SQ --encourage ambulation Yatijgkn60 Overview: --ambien PRN at HS, with relief, but with vivid dreams, ambien d/c --restoril at 30mg PRN at HS with relief, continue Chronic chest pain Overview: --now resolved --since Hodgkin lymphoma diagnosis per patient Hospital discharge follow-up Overview: --Patient will need to follow up with Dr. Unger after discharge Snfvoubzdhv05 Overview: --patient taking atenolol 100mg BID at home, now BP running lower, decreased atenolol dose to 50mg BID with hypotension. --increase to 75mg BID, d/t tachycardia(HRs >110 while afebrile), HR now controlled, continue --monitor closely Electrolyte and fluid disorders not elsewhere qlxjigxvkd41 DISPOSITION AND FOLLOW-UP Overview: 32 yo female from [place], [place]. Family involved with care, at bedside. 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 will start PO pain meds today 10/27. tolerating percocet, pain relatively well controlled. Hodgkin's disease with nodular njtuqmknd06 Overview: Oncology history (per Dr. 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 Hodgkin's disease, lzocpkgbqvm22Vaginal odzexxqa57/07/2016 Overview: --likely from thrombocytopenia. No menses in prior 8 months. 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 Premature czoihmktu31/07/2016Postmenopausal atrophic iptvnvzke95/07/2016 Fnbwtknawst78/07/2016documented as of this encounter (statuses as of 07/25/2022) [facility]2018 History of Past illness Narrative* ProblemNoted Date Resolved DateMenorrhagia with regular cycle Overview: Added automatically from request for surgery [id number] History of pulmonary hdsvqohr44Neoplastic (malignant) related yguxjpq27Hidradenitis uayukkrccqk29Vitamin D crmkzdooab25HyperCKemiaElevated aldolase levelChronic pain of both kneesPain in joint, multiple sitesMyalgiaFatigue Malaise and hzvlavh54Gastroesophageal reflux disease without ocagunlxtnh47Laryngitis02/23/2015 12/26/2015Drug/chem diab w neuro comp w diab autonm (poly)lospbsrcfa50/10/2015 12/26/2015Papanicolaou smear of cervix with low grade squamous intraepithelial lesion (LGSIL)Pain in joint, ankle and foot09/27/2014 12/26/2015ASCUS favor igusphtmv91Visit for gynecologic vapaqszvrgq01Postmenopausal HRT (hormone replacement therapy) Overview: offered Gait xxtkotfxjam44Weakness of both legs Sprain of ankle, leftPCP (pneumocystis jiroveci pneumonia) Acute respiratory failure with ybhhufcso04 Overview: Increased O2 requirement overnight (2L to 5L) - bronchoscopy with BAL/TBLB tomorrow 8 AM. - NPO from midnight - hold tonight dose of lovenox. Radiation Overview: 40 mg prednisone daily Immunodeficiency with predominant T-cell defect, fligwhjqtep45 Urgency of gsjzvzlrcrn17Urinary lokopewxm07 Arm pain, leftBack pain without yictiijtl50/19/2014 12/26/2015Abnormal finding on hpvfwzq96Elevated sed rate Hyperpigmentation of skin Overview: --resolved --bilateral breast tissue and axilla --order mycolog cream --monitor Smbtbicz21 Overview: - c diff pending Mucositis (ulcerative) due to antineoplastic afbgsdt55 Overview: --improved --oxy prn --mouth care measures. Mhfedy05 Overview: --improved with protonix Elevated LFTs Overview: --increased AST ALT during chemo, resolved. Excess fluid dggtan94 Overview: --diuresis as needed --continue to monitor volume status CINV (chemotherapy-induced nausea and vomiting) Overview: --Resolved --Ativan PRN (none used) Peripheral Overview: --gabapentin 300mg TID with increased symptoms, bedtime dose of gabapentin increased to 600mg with improvement reported, continue DVT mhjaeoqiqqf91 Overview: --platelet count decreasing, d/c heparin SQ --encourage ambulation Atunqwcm23 Overview: --ambien PRN at HS, with relief, but with vivid dreams, ambien d/c --restoril at 30mg PRN at HS with relief, continue Chronic chest pain Overview: --now resolved --since Hodgkin lymphoma diagnosis per patient Hospital discharge follow-up Overview: --Patient will need to follow up with Dr. Unger after discharge Uvvtnqldghw38 Overview: --patient taking atenolol 100mg BID at home, now BP running lower, decreased atenolol dose to 50mg BID with hypotension. --increase to 75mg BID, d/t tachycardia(HRs >110 while afebrile), HR now controlled, continue --monitor closely Electrolyte and fluid disorders not elsewhere tyoioprtfx34 DISPOSITION AND FOLLOW-UP Overview: 32 yo female from [place], [place]. Family involved with care, at bedside. 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 will start PO pain meds today 10/27. tolerating percocet, pain relatively well controlled. Hodgkin's disease with nodular fuwupdkxk55 Overview: Oncology history (per Dr. 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 Hodgkin's disease, essrsovpanl50Vaginal rfzogqqw93/07/2016 Overview: --likely from thrombocytopenia. No menses in prior 8 months. 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 Premature nbsylyagx26/07/2016Postmenopausal atrophic xivupqcxg11/07/2016 Gnvdqfvzjlt78/07/2016documented as of this encounter (statuses as of 07/25/2022) [facility]2018 History of Past illness Narrative* ProblemNoted Date Resolved DateMenorrhagia with regular cycle Overview: Added automatically from request for surgery [id number] History of pulmonary sboowgoa64Neoplastic (malignant) related rgbdbry55Hidradenitis blxtazuknrr57Vitamin D ekpvnuviad55HyperCKemiaElevated aldolase levelChronic pain of both kneesPain in joint, multiple sitesMyalgiaFatigue Malaise and vxonibw79Gastroesophageal reflux disease without hvjnoxcuswx03Laryngitis02/23/2015 12/26/2015Drug/chem diab w neuro comp w diab autonm (poly)hpcviovlxg81/10/2015 12/26/2015Papanicolaou smear of cervix with low grade squamous intraepithelial lesion (LGSIL)Pain in joint, ankle and foot09/27/2014 12/26/2015ASCUS favor jjcmhmbaa69Visit for gynecologic exhnpdwtyck72Postmenopausal HRT (hormone replacement therapy) Overview: offered Gait bfejhouqxgf83Weakness of both legs Sprain of ankle, leftPCP (pneumocystis jiroveci pneumonia) Acute respiratory failure with rfscsgtua38 Overview: Increased O2 requirement overnight (2L to 5L) - bronchoscopy with BAL/TBLB tomorrow 8 AM. - NPO from midnight - hold tonight dose of lovenox. Radiation gzeiceyyvrn61 Overview: 40 mg prednisone daily Immunodeficiency with predominant T-cell defect, ziomiyvgrka68 Urgency of lsfsgsomend30Urinary jumayvrvq16 Arm pain, leftBack pain without bfevytyon37/19/2014 12/26/2015Abnormal finding on pnbugdn27Elevated sed rate Hyperpigmentation of skin Overview: --resolved --bilateral breast tissue and axilla --order mycolog cream --monitor Agyujlmx45 Overview: - c diff pending Mucositis (ulcerative) due to antineoplastic eikginx08 Overview: --improved --oxy prn --mouth care measures. Bdqhty28 Overview: --improved with protonix Elevated LFTs Overview: --increased AST ALT during chemo, resolved. Excess fluid euqtjp13 Overview: --diuresis as needed --continue to monitor volume status CINV (chemotherapy-induced nausea and vomiting) Overview: --Resolved --Ativan PRN (none used) Peripheral dhoyyuipbq41 Overview: --gabapentin 300mg TID with increased symptoms, bedtime dose of gabapentin increased to 600mg with improvement reported, continue DVT uohqzlryfwq30 Overview: --platelet count decreasing, d/c heparin SQ --encourage ambulation Wymziupi40 Overview: --ambien PRN at HS, with relief, but with vivid dreams, ambien d/c --restoril at 30mg PRN at HS with relief, continue Chronic chest pain Overview: --now resolved --since Hodgkin lymphoma diagnosis per patient Hospital discharge follow-up Overview: --Patient will need to follow up with Dr. Unger after discharge Wicjigdfjqo93 Overview: --patient taking atenolol 100mg BID at home, now BP running lower, decreased atenolol dose to 50mg BID with hypotension. --increase to 75mg BID, d/t tachycardia(HRs >110 while afebrile), HR now controlled, continue --monitor closely Electrolyte and fluid disorders not elsewhere eupgadmtqk32 DISPOSITION AND FOLLOW-UP Overview: 32 yo female from [place], [place]. Family involved with care, at bedside. 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 will start PO pain meds today 10/27. tolerating percocet, pain relatively well controlled. Hodgkin's disease with nodular pqhudifis59 Overview: Oncology history (per Dr. 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 Hodgkin's disease, kbqofyuapck70Vaginal qfjzhiai81/07/2016 Overview: --likely from thrombocytopenia. No menses in prior 8 months. 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 Premature hpxbvwapk28/07/2016Postmenopausal atrophic fpojwsspz40/07/2016 Kkonzyueivu73/07/2016documented as of this encounter (statuses as of 07/25/2022) [facility] History of Past illness Narrative* ProblemNoted Date Resolved DateMenorrhagia with regular cycle Overview: Added automatically from request for surgery [id number] History of pulmonary hcjozxzs26Neoplastic (malignant) related srydvne26Hidradenitis hardmljcomh92Vitamin D zfoxluybre16HyperCKemiaElevated aldolase levelChronic pain of both kneesPain in joint, multiple sitesMyalgiaFatigue Malaise and hyeclej07Gastroesophageal reflux disease without mkioxdtecie69Laryngitis02/23/2015 12/26/2015Drug/chem diab w neuro comp w diab autonm (poly)pcnyuyygwf44/10/2015 12/26/2015Papanicolaou smear of cervix with low grade squamous intraepithelial lesion (LGSIL)Pain in joint, ankle and foot09/27/2014 12/26/2015ASCUS favor tewlnduaa63Visit for gynecologic aqsivvydnvb67Postmenopausal HRT (hormone replacement therapy) Overview: offered Gait yxsqcvhalya35Weakness of both legs Sprain of ankle, leftPCP (pneumocystis jiroveci pneumonia) Acute respiratory failure with Overview: Increased O2 requirement overnight (2L to 5L) - bronchoscopy with BAL/TBLB tomorrow 8 AM. - NPO from midnight - hold tonight dose of lovenox. Radiation rfkibempqaz74 Overview: 40 mg prednisone daily Immunodeficiency with predominant T-cell defect, rdshgkxwovy52 Urgency of ibtctvwvsva94Urinary veexkkwgx16 Arm pain, leftBack pain without ytulufkas13/19/2014 12/26/2015Abnormal finding on jjnrpmh49Elevated sed rate Hyperpigmentation of skin Overview: --resolved --bilateral breast tissue and axilla --order mycolog cream --monitor Elplxqbo70 Overview: - c diff pending Mucositis (ulcerative) due to antineoplastic Overview: --improved --oxy prn --mouth care measures. Jvwcph14 Overview: --improved with protonix Elevated LFTs Overview: --increased AST ALT during chemo, resolved. Excess fluid yhrpfg29 Overview: --diuresis as needed --continue to monitor volume status CINV (chemotherapy-induced nausea and vomiting) Overview: --Resolved --Ativan PRN (none used) Peripheral xnwvixsght97 Overview: --gabapentin 300mg TID with increased symptoms, bedtime dose of gabapentin increased to 600mg with improvement reported, continue DVT sigdrcpxhzl46 Overview: --platelet count decreasing, d/c heparin SQ --encourage ambulation Oxcmkwqb64 Overview: --ambien PRN at HS, with relief, but with vivid dreams, ambien d/c --restoril at 30mg PRN at HS with relief, continue Chronic chest pain Overview: --now resolved --since Hodgkin lymphoma diagnosis per patient Hospital discharge follow-up Overview: --Patient will need to follow up with Dr. Unger after discharge Aexxefkxdug11 Overview: --patient taking atenolol 100mg BID at home, now BP running lower, decreased atenolol dose to 50mg BID with hypotension. --increase to 75mg BID, d/t tachycardia(HRs >110 while afebrile), HR now controlled, continue --monitor closely Electrolyte and fluid disorders not elsewhere ejakoiplri59 DISPOSITION AND FOLLOW-UP Overview: 32 yo female from [place], [place]. Family involved with care, at bedside. 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 will start PO pain meds today 10/27. tolerating percocet, pain relatively well controlled. Hodgkin's disease with nodular Overview: Oncology history (per Dr. 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 Hodgkin's disease, fyhbaxydyvk28Vaginal jhjxholo69/07/2016 Overview: --likely from thrombocytopenia. No menses in prior 8 months. 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 Premature zezxgyzfy06/07/2016Postmenopausal atrophic rnhbiywbq15/07/2016 Zqrijpocgqf17/07/2016documented as of this encounter (statuses as of 08/02/2022) [facility] History of Past illness Narrative* ProblemNoted Date Resolved DateMenorrhagia with regular cycle Overview: Added automatically from request for surgery [id number] History of pulmonary xboountf98Neoplastic (malignant) related lfkpjvs01Hidradenitis wiwghbwmpnc27Vitamin D thdwrovmff35HyperCKemiaElevated aldolase levelChronic pain of both kneesPain in joint, multiple sitesMyalgiaFatigue Malaise and gkzgimx61Gastroesophageal reflux disease without ezsumomfsqk59Laryngitis02/23/2015 12/26/2015Drug/chem diab w neuro comp w diab autonm (poly)oxyxvbskyg83/10/2015 12/26/2015Papanicolaou smear of cervix with low grade squamous intraepithelial lesion (LGSIL)Pain in joint, ankle and foot09/27/2014 12/26/2015ASCUS favor irdsstcms99Visit for gynecologic hfvjyhpqxzg91Postmenopausal HRT (hormone replacement therapy) Overview: offered Gait uijophnrgtr92Weakness of both legs Sprain of ankle, leftPCP (pneumocystis jiroveci pneumonia) Acute respiratory failure with zcpzcethz42 Overview: Increased O2 requirement overnight (2L to 5L) - bronchoscopy with BAL/TBLB tomorrow 8 AM. - NPO from midnight - hold tonight dose of lovenox. Radiation cyfpyimfckb78 Overview: 40 mg prednisone daily Immunodeficiency with predominant T-cell defect, hpdjmdpazbk07 Urgency of imbzkrkitlf45Urinary gyuarepuh16 Arm pain, leftBack pain without afpvqamru87/19/2014 12/26/2015Abnormal finding on fzrhesh77Elevated sed rate Hyperpigmentation of skin Overview: --resolved --bilateral breast tissue and axilla --order mycolog cream --monitor Aycfkzhj00 Overview: - c diff pending Mucositis (ulcerative) due to antineoplastic qwgcfir03 Overview: --improved --oxy prn --mouth care measures. Buvdrh85 Overview: --improved with protonix Elevated LFTs Overview: --increased AST ALT during chemo, resolved. Excess fluid wujhhu41 Overview: --diuresis as needed --continue to monitor volume status CINV (chemotherapy-induced nausea and vomiting) Overview: --Resolved --Ativan PRN (none used) Peripheral hosjkrjgql03 Overview: --gabapentin 300mg TID with increased symptoms, bedtime dose of gabapentin increased to 600mg with improvement reported, continue DVT ujzfamkavsa45 Overview: --platelet count decreasing, d/c heparin SQ --encourage ambulation Hqnowbjv37 Overview: --ambien PRN at HS, with relief, but with vivid dreams, ambien d/c --restoril at 30mg PRN at HS with relief, continue Chronic chest pain Overview: --now resolved --since Hodgkin lymphoma diagnosis per patient Hospital discharge follow-up Overview: --Patient will need to follow up with Dr. Unger after discharge Gwnjedxglnw65 Overview: --patient taking atenolol 100mg BID at home, now BP running lower, decreased atenolol dose to 50mg BID with hypotension. --increase to 75mg BID, d/t tachycardia(HRs >110 while afebrile), HR now controlled, continue --monitor closely Electrolyte and fluid disorders not elsewhere uyeynoqrfe35 DISPOSITION AND FOLLOW-UP Overview: 32 yo female from [place]. Family involved with care, at bedside. 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 will start PO pain meds today 10/27. tolerating percocet, pain relatively well controlled. Hodgkin's disease with nodular ugkwgjgxr80 Overview: Oncology history (per Dr. 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 Hodgkin's disease, rnmprqijfqr52Vaginal opqxzypu44/07/2016 Overview: --likely from thrombocytopenia. No menses in prior 8 months. 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 Premature /07/2016Postmenopausal atrophic cpykqxwkq21/07/2016 Cuffntakfwc61/07/2016documented as of this encounter (statuses as of 08/05/2022) [facility]26[facility]2018 History of Past illness Narrative* ProblemNoted Date Resolved DateMenorrhagia with regular cycle Overview: Added automatically from request for surgery [id number] History of pulmonary xvfnaode16Neoplastic (malignant) related czdgpyn29Hidradenitis hszmldbfrym64Vitamin D ptbpsqmeph19HyperCKemiaElevated aldolase levelChronic pain of both kneesPain in joint, multiple sitesMyalgiaFatigue Malaise and vnhrgxy88Gastroesophageal reflux disease without leozibsaxlr24Laryngitis02/23/2015 12/26/2015Drug/chem diab w neuro comp w diab autonm (poly)enfgokgjjr81/10/2015 12/26/2015Papanicolaou smear of cervix with low grade squamous intraepithelial lesion (LGSIL)Pain in joint, ankle and foot09/27/2014 12/26/2015ASCUS favor fwwdcgziz45Visit for gynecologic rmhmcwhiblh51Postmenopausal HRT (hormone replacement therapy) Overview: offered Gait zpekiigznbc40Weakness of both legs Sprain of ankle, leftPCP (pneumocystis jiroveci pneumonia) Acute respiratory failure with vtnlrnbid93 Overview: Increased O2 requirement overnight (2L to 5L) - bronchoscopy with BAL/TBLB tomorrow 8 AM. - NPO from midnight - hold tonight dose of lovenox. Radiation pojtrvazixb36 Overview: 40 mg prednisone daily Immunodeficiency with predominant T-cell defect, Urgency of eeoyilfxtqr35Urinary Arm pain, leftBack pain without uozlovwor35/19/2014 12/26/2015Abnormal finding on htnrzru20Elevated sed rate Hyperpigmentation of skin Overview: --resolved --bilateral breast tissue and axilla --order mycolog cream --monitor Drdjqqda03 Overview: - c diff pending Mucositis (ulcerative) due to antineoplastic skhvyxa45 Overview: --improved --oxy prn --mouth care measures. Xmigex90 Overview: --improved with protonix Elevated LFTs Overview: --increased AST ALT during chemo, resolved. Excess fluid zzasbn53 Overview: --diuresis as needed --continue to monitor volume status CINV (chemotherapy-induced nausea and vomiting) Overview: --Resolved --Ativan PRN (none used) Peripheral Overview: --gabapentin 300mg TID with increased symptoms, bedtime dose of gabapentin increased to 600mg with improvement reported, continue DVT Overview: --platelet count decreasing, d/c heparin SQ --encourage ambulation Sibdpqoy47 Overview: --ambien PRN at HS, with relief, but with vivid dreams, ambien d/c --restoril at 30mg PRN at HS with relief, continue Chronic chest pain Overview: --now resolved --since Hodgkin lymphoma diagnosis per patient Hospital discharge follow-up Overview: --Patient will need to follow up with Dr. Unger after discharge Wijwgqzedpu35 Overview: --patient taking atenolol 100mg BID at home, now BP running lower, decreased atenolol dose to 50mg BID with hypotension. --increase to 75mg BID, d/t tachycardia(HRs >110 while afebrile), HR now controlled, continue --monitor closely Electrolyte and fluid disorders not elsewhere frrbgyrktl85 DISPOSITION AND FOLLOW-UP Overview: 32 yo female from [place], [place]. Family involved with care, at bedside. 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 will start PO pain meds today 10/27. tolerating percocet, pain relatively well controlled. Hodgkin's disease with nodular vmpxxyplt93 Overview: Oncology history (per Dr. 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 Hodgkin's disease, tbhxuafzulu75Vaginal jvhaplcr70/07/2016 Overview: --likely from thrombocytopenia. No menses in prior 8 months. 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 Premature omteiqafv79/07/2016Postmenopausal atrophic rcyvxbjwo91/07/2016 Jncrtbrybmr51/07/2016documented as of this encounter (statuses as of 08/10/2022) [facility]01-[facility]-2018 History of Past illness Narrative* ProblemNoted Date Resolved DateMenorrhagia with regular cycle Overview: Added automatically from request for surgery [id number] History of pulmonary svvsaeow11Neoplastic (malignant) related ruijuoa33Hidradenitis pkozspmgkyk67Vitamin D yxzakgmvjt44HyperCKemiaElevated aldolase levelChronic pain of both kneesPain in joint, multiple sitesMyalgiaFatigue Malaise and ntoyayw13Gastroesophageal reflux disease without bddjvfeuilu50Laryngitis02/23/2015 12/26/2015Drug/chem diab w neuro comp w diab autonm (poly)sczmbxtbed54/10/2015 12/26/2015Papanicolaou smear of cervix with low grade squamous intraepithelial lesion (LGSIL)Pain in joint, ankle and foot09/27/2014 12/26/2015ASCUS favor pbcyzdhxd18Visit for gynecologic hcgstzazzfy84Postmenopausal HRT (hormone replacement therapy) Overview: offered Gait nyahnroymiw12Weakness of both legs07/22/ Sprain of ankle, leftPCP (pneumocystis jiroveci pneumonia) 06/03/Acute respiratory failure with tsiltueht59 Overview: Increased O2 requirement overnight (2L to 5L) - bronchoscopy with BAL/TBLB tomorrow 8 AM. - NPO from midnight - hold tonight dose of lovenox. Radiation nqshnxdisgn61 Overview: 40 mg prednisone daily Immunodeficiency with predominant T-cell defect, yrwxdwupqvd85 Urgency of fdnxihvajbe73Urinary oxhodreml86 Arm pain, leftBack pain without zcssrnuqo67/19/2014 12/26/2015Abnormal finding on klwmtru29Elevated sed rate Hyperpigmentation of skin Overview: --resolved --bilateral breast tissue and axilla --order mycolog cream --monitor Irlmdoky59 Overview: - c diff pending Mucositis (ulcerative) due to antineoplastic ovghxip37 Overview: --improved --oxy prn --mouth care measures. Ubfquq38 Overview: --improved with protonix Elevated LFTs Overview: --increased AST ALT during chemo, resolved. Excess fluid Overview: --diuresis as needed --continue to monitor volume status CINV (chemotherapy-induced nausea and vomiting) Overview: --Resolved --Ativan PRN (none used) Peripheral eislsxgtuh73 Overview: --gabapentin 300mg TID with increased symptoms, bedtime dose of gabapentin increased to 600mg with improvement reported, continue DVT Overview: --platelet count decreasing, d/c heparin SQ --encourage ambulation Ualbpgke44 Overview: --ambien PRN at HS, with relief, but with vivid dreams, ambien d/c --restoril at 30mg PRN at HS with relief, continue Chronic chest pain Overview: --now resolved --since Hodgkin lymphoma diagnosis per patient Hospital discharge follow-up Overview: --Patient will need to follow up with Dr. Unger after discharge Vuxpjdvrjbl48 Overview: --patient taking atenolol 100mg BID at home, now BP running lower, decreased atenolol dose to 50mg BID with hypotension. --increase to 75mg BID, d/t tachycardia(HRs >110 while afebrile), HR now controlled, continue --monitor closely Electrolyte and fluid disorders not elsewhere wqkkfuadpd92 DISPOSITION AND FOLLOW-UP Overview: 32 yo female from [place], [place]. Family involved with care, at bedside. 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 will start PO pain meds today 10/27. tolerating percocet, pain relatively well controlled. Hodgkin's disease with nodular xnrqkqgey94 Overview: Oncology history (per Dr. 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 Hodgkin's disease, cccinzyyewe61Vaginal verbrskg73/07/2016 Overview: --likely from thrombocytopenia. No menses in prior 8 months. 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 Premature plwcqggun79/07/2016Postmenopausal atrophic noigeimao65/07/2016 Jkoovauyxly79/07/2016documented as of this encounter (statuses as of 08/10/2022) [facility]2018 History of Past illness Narrative* ProblemNoted Date Resolved DateMenorrhagia with regular cycle Overview: Added automatically from request for surgery [id number] History of pulmonary owrwwfmj32Neoplastic (malignant) related kutmaea91Hidradenitis idqfesscuak74Vitamin D nmkvcfzsli37HyperCKemiaElevated aldolase levelChronic pain of both kneesPain in joint, multiple sitesMyalgiaFatigue Malaise and otzorrb25/04/Gastroesophageal reflux disease without mdqgznjhkss31Laryngitis02/23/2015 12/26/2015Drug/chem diab w neuro comp w diab autonm (poly)fyttjqciht05/10/2015 12/26/2015Papanicolaou smear of cervix with low grade squamous intraepithelial lesion (LGSIL)Pain in joint, ankle and foot09/27/2014 12/26/2015ASCUS favor nwronyjqy82Visit for gynecologic bhwjpfocdnu83Postmenopausal HRT (hormone replacement therapy) Overview: offered Gait cpoikgkuntm41Weakness of both legs Sprain of ankle, leftPCP (pneumocystis jiroveci pneumonia) Acute respiratory failure with ynarojhej63 Overview: Increased O2 requirement overnight (2L to 5L) - bronchoscopy with BAL/TBLB tomorrow 8 AM. - NPO from midnight - hold tonight dose of lovenox. Radiation bkvrpwzpwfy04 Overview: 40 mg prednisone daily Immunodeficiency with predominant T-cell defect, xksqlahsdkg18 Urgency of huhoijwatoa67Urinary ybbwutfkq65 Arm pain, leftBack pain without cgscnuvfq08/19/2014 12/26/2015Abnormal finding on ntacfsx83Elevated sed rate Hyperpigmentation of skin Overview: --resolved --bilateral breast tissue and axilla --order mycolog cream --monitor Zgptivkx24 Overview: - c diff pending Mucositis (ulcerative) due to antineoplastic jtqldda00 Overview: --improved --oxy prn --mouth care measures. Kcdrda15 Overview: --improved with protonix Elevated LFTs Overview: --increased AST ALT during chemo, resolved. Excess fluid wcsiaw86 Overview: --diuresis as needed --continue to monitor volume status CINV (chemotherapy-induced nausea and vomiting) Overview: --Resolved --Ativan PRN (none used) Peripheral lqujljusyq26 Overview: --gabapentin 300mg TID with increased symptoms, bedtime dose of gabapentin increased to 600mg with improvement reported, continue DVT ljmzarafawf88 Overview: --platelet count decreasing, d/c heparin SQ --encourage ambulation Aogewcfe70 Overview: --ambien PRN at HS, with relief, but with vivid dreams, ambien d/c --restoril at 30mg PRN at HS with relief, continue Chronic chest pain Overview: --now resolved --since Hodgkin lymphoma diagnosis per patient Hospital discharge follow-up Overview: --Patient will need to follow up with Dr. Unger after discharge Bqomsuslslx48 Overview: --patient taking atenolol 100mg BID at home, now BP running lower, decreased atenolol dose to 50mg BID with hypotension. --increase to 75mg BID, d/t tachycardia(HRs >110 while afebrile), HR now controlled, continue --monitor closely Electrolyte and fluid disorders not elsewhere rgoyzjgaui58 DISPOSITION AND FOLLOW-UP Overview: 32 yo female from [place], [place]. Family involved with care, at bedside. 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 will start PO pain meds today 10/27. tolerating percocet, pain relatively well controlled. Hodgkin's disease with nodular vxxrcergw56 Overview: Oncology history (per Dr. 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 Hodgkin's disease, opfjnwivvsk23Vaginal dtcrojia08/07/2016 Overview: --likely from thrombocytopenia. No menses in prior 8 months. 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 Premature nblbakyah97/07/2016Postmenopausal atrophic inusxsdxk36/07/2016 Fogdnhiiljw07/07/2016documented as of this encounter (statuses as of 08/17/2022) [facility]01[facility]2018 History of Past illness Narrative* ProblemNoted Date Resolved DateMenorrhagia with regular cycle Overview: Added automatically from request for surgery [id number] History of pulmonary agjtwatc97Neoplastic (malignant) related soluthf99Hidradenitis ibgunrhfrlr55Vitamin D jggvygwnrf54/21/0464VjpvsIJremz19Elevated aldolase levelChronic pain of both kneesPain in joint, multiple sitesMyalgiaFatigue Malaise and sbuvchl17Gastroesophageal reflux disease without jetminnvvzu83Laryngitis02/23/2015 12/26/2015Drug/chem diab w neuro comp w diab autonm (poly)aozqvyugal63/10/2015 12/26/2015Papanicolaou smear of cervix with low grade squamous intraepithelial lesion (LGSIL)Pain in joint, ankle and foot09/27/2014 12/26/2015ASCUS favor ohxlfurkt30Visit for gynecologic tilirejnzyi58Postmenopausal HRT (hormone replacement therapy) Overview: offered Gait blkwqtpbrip14Weakness of both legs Sprain of ankle, leftPCP (pneumocystis jiroveci pneumonia) Acute respiratory failure with minqjuiwy06 Overview: Increased O2 requirement overnight (2L to 5L) - bronchoscopy with BAL/TBLB tomorrow 8 AM. - NPO from midnight - hold tonight dose of lovenox. Radiation evnimstnrgj94 Overview: 40 mg prednisone daily Immunodeficiency with predominant T-cell defect, Urgency of iwklebwghyw17Urinary khsctdefr36 Arm pain, leftBack pain without gbqucoavi64/19/2014 12/26/2015Abnormal finding on vinapum37Elevated sed rate Hyperpigmentation of skin Overview: --resolved --bilateral breast tissue and axilla --order mycolog cream --monitor Awayrsud82 Overview: - c diff pending Mucositis (ulcerative) due to antineoplastic ojxmbfi31 Overview: --improved --oxy prn --mouth care measures. Txqlgr53 Overview: --improved with protonix Elevated LFTs Overview: --increased AST ALT during chemo, resolved. Excess fluid lyimzv59 Overview: --diuresis as needed --continue to monitor volume status CINV (chemotherapy-induced nausea and vomiting) Overview: --Resolved --Ativan PRN (none used) Peripheral glwfnybfpp92 Overview: --gabapentin 300mg TID with increased symptoms, bedtime dose of gabapentin increased to 600mg with improvement reported, continue DVT epbtzltboel77 Overview: --platelet count decreasing, d/c heparin SQ --encourage ambulation Dzuywikh97 Overview: --ambien PRN at HS, with relief, but with vivid dreams, ambien d/c --restoril at 30mg PRN at HS with relief, continue Chronic chest pain Overview: --now resolved --since Hodgkin lymphoma diagnosis per patient Hospital discharge follow-up Overview: --Patient will need to follow up with Dr. Unger after discharge Jkhkwhxuakj50 Overview: --patient taking atenolol 100mg BID at home, now BP running lower, decreased atenolol dose to 50mg BID with hypotension. --increase to 75mg BID, d/t tachycardia(HRs >110 while afebrile), HR now controlled, continue --monitor closely Electrolyte and fluid disorders not elsewhere pmnownkgpi14 DISPOSITION AND FOLLOW-UP Overview: 32 yo female from [place], [place]. Family involved with care, at bedside. 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 will start PO pain meds today 10/27. tolerating percocet, pain relatively well controlled. Hodgkin's disease with nodular jzzybdohq09 Overview: Oncology history (per Dr. 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 Hodgkin's disease, ktfnibmddxl64Vaginal ddbfvyco12/07/2016 Overview: --likely from thrombocytopenia. No menses in prior 8 months. 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 Premature odiyhhacz25/07/2016Postmenopausal atrophic sbovbzefi02/07/2016 Tfftipaxwlz84/07/2016documented as of this encounter (statuses as of 08/23/2022) [facility] History of Past illness Narrative* ProblemNoted Date Diagnosed DateResolved DateMenorrhagia with regular cycle Overview: Added automatically from request for surgery [id number] History of pulmonary vnqnmheo57Neoplastic (malignant) related ibiwvwi13Hidradenitis lzkzndvmebr22Vitamin D dscgpmkpzs65HyperCKemiaElevated aldolase levelChronic pain of both kneesPain in joint, multiple sitesMyalgiaFatigue Malaise and hqcixav55Gastroesophageal reflux disease without rvcffndtwfd55Laryngitis02/23/2015 12/26/2015Drug/chem diab w neuro comp w diab autonm (poly)vaeuddecqk86/10/2015 12/26/2015Papanicolaou smear of cervix with low grade squamous intraepithelial lesion (LGSIL)Pain in joint, ankle and foot09/27/2014 12/26/2015ASCUS favor agakyohhf55Visit for gynecologic zgrnjegjpbh46/21/Postmenopausal HRT (hormone replacement therapy) Overview: offered Gait xmgbhxlirfl89Weakness of both legs Sprain of ankle, leftPCP (pneumocystis jiroveci pneumonia) Acute respiratory failure with ztnozrtmg91 Overview: Increased O2 requirement overnight (2L to 5L) - bronchoscopy with BAL/TBLB tomorrow 8 AM. - NPO from midnight - hold tonight dose of lovenox. Radiation jybjpzsjhtl80 Overview: 40 mg prednisone daily Immunodeficiency with predominant T-cell defect, yxipqxwiqos59 Urgency of kmejqaodivj50Urinary xvxgjxsoj72 Arm pain, leftBack pain without avetvpwts91/19/2014 12/26/2015Abnormal finding on njuljso36Elevated sed rate Hyperpigmentation of skin Overview: --resolved --bilateral breast tissue and axilla --order mycolog cream --monitor Quapujso80 Overview: - c diff pending Mucositis (ulcerative) due to antineoplastic cqymiqt11 Overview: --improved --oxy prn --mouth care measures. Afpwwn45 Overview: --improved with protonix Elevated LFTs Overview: --increased AST ALT during chemo, resolved. Excess fluid xrcqlu99 Overview: --diuresis as needed --continue to monitor volume status CINV (chemotherapy-induced nausea and vomiting) Overview: --Resolved --Ativan PRN (none used) Peripheral Overview: --gabapentin 300mg TID with increased symptoms, bedtime dose of gabapentin increased to 600mg with improvement reported, continue DVT xpavxngsmmk15 Overview: --platelet count decreasing, d/c heparin SQ --encourage ambulation Fclbvwks91 Overview: --ambien PRN at HS, with relief, but with vivid dreams, ambien d/c --restoril at 30mg PRN at HS with relief, continue Chronic chest pain Overview: --now resolved --since Hodgkin lymphoma diagnosis per patient Hospital discharge follow-up Overview: --Patient will need to follow up with Dr. Unger after discharge Nyxlidqalaj95 Overview: --patient taking atenolol 100mg BID at home, now BP running lower, decreased atenolol dose to 50mg BID with hypotension. --increase to 75mg BID, d/t tachycardia(HRs >110 while afebrile), HR now controlled, continue --monitor closely Electrolyte and fluid disorders not elsewhere yxtnrazxan82 DISPOSITION AND FOLLOW-UP Overview: 32 yo female from [place], [place]. Family involved with care, at bedside. 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 will start PO pain meds today 10/27. tolerating percocet, pain relatively well controlled. Hodgkin's disease with nodular pecuidhrl48 Overview: Oncology history (per Dr. 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 Hodgkin's disease, xjmefvgmlgr93Vaginal qmpaddnv65/07/2016 Overview: --likely from thrombocytopenia. No menses in prior 8 months. 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 Premature /07/2016Postmenopausal atrophic esynryggb54/07/2016 Divwmraeohn44/07/2016documented as of this encounter (statuses as of 08/27/2022) [facility] History of Past illness Narrative* ProblemNoted Date Diagnosed DateResolved DateMenorrhagia with regular cycle Overview: Added automatically from request for surgery [id number] History of pulmonary oxzdlddb01Neoplastic (malignant) related gaazeyo45Hidradenitis rhirknzwbmx90Vitamin D msqyqudcug79HyperCKemiaElevated aldolase levelChronic pain of both kneesPain in joint, multiple sitesMyalgiaFatigue Malaise and tynehsb75Gastroesophageal reflux disease without ngdlhwoaqrf17Laryngitis02/23/2015 12/26/2015Drug/chem diab w neuro comp w diab autonm (poly)ywbsraarvq00/10/2015 12/26/2015Papanicolaou smear of cervix with low grade squamous intraepithelial lesion (LGSIL)Pain in joint, ankle and foot09/27/2014 12/26/2015ASCUS favor bmhiadhzm70Visit for gynecologic yfimfrsryxu24Postmenopausal HRT (hormone replacement therapy) Overview: offered Gait gfdgjhxppqw51Weakness of both legs Sprain of ankle, leftPCP (pneumocystis jiroveci pneumonia) Acute respiratory failure with uimpsqsnr75 Overview: Increased O2 requirement overnight (2L to 5L) - bronchoscopy with BAL/TBLB tomorrow 8 AM. - NPO from midnight - hold tonight dose of lovenox. Radiation jdfvoetzkai83 Overview: 40 mg prednisone daily Immunodeficiency with predominant T-cell defect, uxnxfpikibk90 Urgency of awmokokvhip76Urinary ygxatbttp19 Arm pain, leftBack pain without ltydbxdmr46/19/2014 12/26/2015Abnormal finding on ekzwqpc48Elevated sed rate Hyperpigmentation of skin Overview: --resolved --bilateral breast tissue and axilla --order mycolog cream --monitor Cnenkxdi10 Overview: - c diff pending Mucositis (ulcerative) due to antineoplastic jjalzin26 Overview: --improved --oxy prn --mouth care measures. Ymuqur83 Overview: --improved with protonix Elevated LFTs Overview: --increased AST ALT during chemo, resolved. Excess fluid nmiarc95 Overview: --diuresis as needed --continue to monitor volume status CINV (chemotherapy-induced nausea and vomiting) Overview: --Resolved --Ativan PRN (none used) Peripheral cgaagvqisv44 Overview: --gabapentin 300mg TID with increased symptoms, bedtime dose of gabapentin increased to 600mg with improvement reported, continue DVT eeqwoteerdg38 Overview: --platelet count decreasing, d/c heparin SQ --encourage ambulation Zigfljuw57 Overview: --ambien PRN at HS, with relief, but with vivid dreams, ambien d/c --restoril at 30mg PRN at HS with relief, continue Chronic chest pain Overview: --now resolved --since Hodgkin lymphoma diagnosis per patient Hospital discharge follow-up Overview: --Patient will need to follow up with Dr. Unger after discharge Gudoqjokefw22 Overview: --patient taking atenolol 100mg BID at home, now BP running lower, decreased atenolol dose to 50mg BID with hypotension. --increase to 75mg BID, d/t tachycardia(HRs >110 while afebrile), HR now controlled, continue --monitor closely Electrolyte and fluid disorders not elsewhere hpknvwjzoq60 DISPOSITION AND FOLLOW-UP Overview: 32 yo female from [place], [place]. Family involved with care, at bedside. 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 will start PO pain meds today 10/27. tolerating percocet, pain relatively well controlled. Hodgkin's disease with nodular zptiifgek42 Overview: Oncology history (per Dr. 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 Hodgkin's disease, behdutjxrox27Vaginal bgcgoziw06/07/2016 Overview: --likely from thrombocytopenia. No menses in prior 8 months. 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 Premature foglmragh99/07/2016Postmenopausal atrophic eijczeedp57/07/2016 Fpxgplpaeae48/07/2016documented as of this encounter (statuses as of 08/30/2022) [facility] History of Past illness Narrative* ProblemNoted Date Diagnosed DateResolved DateMenorrhagia with regular cycle Overview: Added automatically from request for surgery [id number] History of pulmonary huhnaplw61Neoplastic (malignant) related iuzsmqp98Hidradenitis handsfbubhz73Vitamin D noveatiote65HyperCKemiaElevated aldolase levelChronic pain of both kneesPain in joint, multiple sitesMyalgiaFatigue Malaise and ofbstia28Gastroesophageal reflux disease without akfgaohanvt17Laryngitis02/23/2015 12/26/2015Drug/chem diab w neuro comp w diab autonm (poly)vguejhehia34/10/2015 12/26/2015Papanicolaou smear of cervix with low grade squamous intraepithelial lesion (LGSIL)Pain in joint, ankle and foot09/27/2014 12/26/2015ASCUS favor ljkchvqhh24Visit for gynecologic kzedoskchfk35Postmenopausal HRT (hormone replacement therapy) Overview: offered Gait ooxfivckaqc82Weakness of both legs Sprain of ankle, leftPCP (pneumocystis jiroveci pneumonia) Acute respiratory failure with nkunzvbzo76 Overview: Increased O2 requirement overnight (2L to 5L) - bronchoscopy with BAL/TBLB tomorrow 8 AM. - NPO from midnight - hold tonight dose of lovenox. Radiation Overview: 40 mg prednisone daily Immunodeficiency with predominant T-cell defect, iadbibzinvw19 Urgency of gelxczcwopm31Urinary mtptqxomh20 Arm pain, leftBack pain without biesqmczo50/19/2014 12/26/2015Abnormal finding on mevodml38Elevated sed rate Hyperpigmentation of skin Overview: --resolved --bilateral breast tissue and axilla --order mycolog cream --monitor Azgbbhhr44 Overview: - c diff pending Mucositis (ulcerative) due to antineoplastic Overview: --improved --oxy prn --mouth care measures. Nktued63 Overview: --improved with protonix Elevated LFTs Overview: --increased AST ALT during chemo, resolved. Excess fluid urgwcl94 Overview: --diuresis as needed --continue to monitor volume status CINV (chemotherapy-induced nausea and vomiting) Overview: --Resolved --Ativan PRN (none used) Peripheral rhvtkamnqz12 Overview: --gabapentin 300mg TID with increased symptoms, bedtime dose of gabapentin increased to 600mg with improvement reported, continue DVT alhhpejobcy43 Overview: --platelet count decreasing, d/c heparin SQ --encourage ambulation Pnjgjzxn72 Overview: --ambien PRN at HS, with relief, but with vivid dreams, ambien d/c --restoril at 30mg PRN at HS with relief, continue Chronic chest pain Overview: --now resolved --since Hodgkin lymphoma diagnosis per patient Hospital discharge follow-up Overview: --Patient will need to follow up with Dr. Ungre after discharge Valfvuniyqx30 Overview: --patient taking atenolol 100mg BID at home, now BP running lower, decreased atenolol dose to 50mg BID with hypotension. --increase to 75mg BID, d/t tachycardia(HRs >110 while afebrile), HR now controlled, continue --monitor closely Electrolyte and fluid disorders not elsewhere dthtlycypa93 DISPOSITION AND FOLLOW-UP Overview: 32 yo female from [place], [place]. Family involved with care, at bedside. 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 will start PO pain meds today 10/27. tolerating percocet, pain relatively well controlled. Hodgkin's disease with nodular dxfinboco23 Overview: Oncology history (per Dr. 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 Hodgkin's disease, rgbvpyqmyuc09Vaginal oiamxell58/07/2016 Overview: --likely from thrombocytopenia. No menses in prior 8 months. 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 Premature htgmpolna62/07/2016Postmenopausal atrophic bjkuipukn79/07/2016 Faxqyrxhsiw21/07/2016documented as of this encounter (statuses as of 08/31/2022) [facility]2018 History of Past illness Narrative* ProblemNoted Date Diagnosed DateResolved DateMenorrhagia with regular cycle Overview: Added automatically from request for surgery [id number] History of pulmonary jsfwtseo95Neoplastic (malignant) related rjsmcmx54Hidradenitis vpzasecpfuy11Vitamin D zuslrwffiu68HyperCKemiaElevated aldolase levelChronic pain of both kneesPain in joint, multiple sitesMyalgiaFatigue Malaise and vnynjvy10Gastroesophageal reflux disease without veyxxsmnljj47Laryngitis02/23/2015 12/26/2015Drug/chem diab w neuro comp w diab autonm (poly)eomwioklnw50/10/2015 12/26/2015Papanicolaou smear of cervix with low grade squamous intraepithelial lesion (LGSIL)Pain in joint, ankle and foot09/27/2014 12/26/2015ASCUS favor tlscopork13Visit for gynecologic gjbomvakeik44Postmenopausal HRT (hormone replacement therapy) Overview: offered Gait wzgyvpfavpg81Weakness of both legs Sprain of ankle, leftPCP (pneumocystis jiroveci pneumonia) Acute respiratory failure with quvqfuwnt34 Overview: Increased O2 requirement overnight (2L to 5L) - bronchoscopy with BAL/TBLB tomorrow 8 AM. - NPO from midnight - hold tonight dose of lovenox. Radiation Overview: 40 mg prednisone daily Immunodeficiency with predominant T-cell defect, gqskkfaxlms01 Urgency of ksqvsvhxadq87Urinary cqgmcszwe10 Arm pain, leftBack pain without sbrzowkeh90/19/2014 12/26/2015Abnormal finding on yqlxfwj71Elevated sed rate Hyperpigmentation of skin Overview: --resolved --bilateral breast tissue and axilla --order mycolog cream --monitor Fthjwtah14 Overview: - c diff pending Mucositis (ulcerative) due to antineoplastic myjhgge80 Overview: --improved --oxy prn --mouth care measures. Pqijyn00 Overview: --improved with protonix Elevated LFTs Overview: --increased AST ALT during chemo, resolved. Excess fluid Overview: --diuresis as needed --continue to monitor volume status CINV (chemotherapy-induced nausea and vomiting) Overview: --Resolved --Ativan PRN (none used) Peripheral uieqjojuqf68 Overview: --gabapentin 300mg TID with increased symptoms, bedtime dose of gabapentin increased to 600mg with improvement reported, continue DVT snwqjskyodc63 Overview: --platelet count decreasing, d/c heparin SQ --encourage ambulation Nlruyjnu35 Overview: --ambien PRN at HS, with relief, but with vivid dreams, ambien d/c --restoril at 30mg PRN at HS with relief, continue Chronic chest pain Overview: --now resolved --since Hodgkin lymphoma diagnosis per patient Hospital discharge follow-up Overview: --Patient will need to follow up with Dr. Unger after discharge Lyovhkxvzon34 Overview: --patient taking atenolol 100mg BID at home, now BP running lower, decreased atenolol dose to 50mg BID with hypotension. --increase to 75mg BID, d/t tachycardia(HRs >110 while afebrile), HR now controlled, continue --monitor closely Electrolyte and fluid disorders not elsewhere oiuvnkpsus50 DISPOSITION AND FOLLOW-UP Overview: 32 yo female from [place], [place]. Family involved with care, at bedside. 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 will start PO pain meds today 10/27. tolerating percocet, pain relatively well controlled. Hodgkin's disease with nodular aqvsptmhc60 Overview: Oncology history (per Dr. 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 Hodgkin's disease, afygxoumgbj25Vaginal eiqlapim12/07/2016 Overview: --likely from thrombocytopenia. No menses in prior 8 months. 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 Premature trptedwjk72/07/2016Postmenopausal atrophic imordupby07/07/2016 Cdigbszbxkq02/07/2016documented as of this encounter (statuses as of 09/01/2022) [facility] History of Past illness Narrative* ProblemNoted Date Diagnosed DateResolved DateMenorrhagia with regular cycle Overview: Added automatically from request for surgery [id number] History of pulmonary rblpwmsd17Neoplastic (malignant) related bgofydr72Hidradenitis yesfwjcxrfb06Vitamin D nyjkmjhrhh91HyperCKemiaElevated aldolase levelChronic pain of both kneesPain in joint, multiple sitesMyalgiaFatigue Malaise and wxbgxki25Gastroesophageal reflux disease without aiutdqurdpd58Laryngitis02/23/2015 12/26/2015Drug/chem diab w neuro comp w diab autonm (poly)lkzpfnbieo84/10/2015 12/26/2015Papanicolaou smear of cervix with low grade squamous intraepithelial lesion (LGSIL)Pain in joint, ankle and foot09/27/2014 12/26/2015ASCUS favor oyjfdiogi51Visit for gynecologic obtebfxuhob79Postmenopausal HRT (hormone replacement therapy) Overview: offered Gait edahxmoirrm01Weakness of both legs Sprain of ankle, leftPCP (pneumocystis jiroveci pneumonia) Acute respiratory failure with llonmunro11 Overview: Increased O2 requirement overnight (2L to 5L) - bronchoscopy with BAL/TBLB tomorrow 8 AM. - NPO from midnight - hold tonight dose of lovenox. Radiation cwahepwdpgl16 Overview: 40 mg prednisone daily Immunodeficiency with predominant T-cell defect, lsqmxrklqai29 Urgency of wyxjdqhsdah98Urinary Arm pain, leftBack pain without ijkhdaaoo77/19/2014 12/26/2015Abnormal finding on pizxeuw12Elevated sed rate Hyperpigmentation of skin Overview: --resolved --bilateral breast tissue and axilla --order mycolog cream --monitor Nflmmcjp69 Overview: - c diff pending Mucositis (ulcerative) due to antineoplastic Overview: --improved --oxy prn --mouth care measures. Reozif69 Overview: --improved with protonix Elevated LFTs Overview: --increased AST ALT during chemo, resolved. Excess fluid Overview: --diuresis as needed --continue to monitor volume status CINV (chemotherapy-induced nausea and vomiting) Overview: --Resolved --Ativan PRN (none used) Peripheral yfefgpddmu86 Overview: --gabapentin 300mg TID with increased symptoms, bedtime dose of gabapentin increased to 600mg with improvement reported, continue DVT Overview: --platelet count decreasing, d/c heparin SQ --encourage ambulation Geimgznx11 Overview: --ambien PRN at HS, with relief, but with vivid dreams, ambien d/c --restoril at 30mg PRN at HS with relief, continue Chronic chest pain Overview: --now resolved --since Hodgkin lymphoma diagnosis per patient Hospital discharge follow-up Overview: --Patient will need to follow up with Dr. Unger after discharge Dtlivipuurj04 Overview: --patient taking atenolol 100mg BID at home, now BP running lower, decreased atenolol dose to 50mg BID with hypotension. --increase to 75mg BID, d/t tachycardia(HRs >110 while afebrile), HR now controlled, continue --monitor closely Electrolyte and fluid disorders not elsewhere nlpjygtppg73 DISPOSITION AND FOLLOW-UP Overview: 32 yo female from [place], [place]. Family involved with care, at bedside. 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 will start PO pain meds today 10/27. tolerating percocet, pain relatively well controlled. Hodgkin's disease with nodular uxufqxxpv88 Overview: Oncology history (per Dr. 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 Hodgkin's disease, kbswtzwexpz25Vaginal ciklryqt44/07/2016 Overview: --likely from thrombocytopenia. No menses in prior 8 months. 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 Premature briwtzrqi28/07/2016Postmenopausal atrophic vcedozzej20/07/2016 Pfofamaeunc03/07/2016documented as of this encounter (statuses as of 09/06/2022) [facility] History of Past illness Narrative* ProblemNoted Date Diagnosed DateResolved DateMenorrhagia with regular cycle Overview: Added automatically from request for surgery [id number] History of pulmonary kvkozvxt23Neoplastic (malignant) related txdqxbq02Hidradenitis aldgdrzaylx39Vitamin D abgsjarsty20HyperCKemiaElevated aldolase levelChronic pain of both kneesPain in joint, multiple sitesMyalgiaFatigue Malaise and wfecxrq50Gastroesophageal reflux disease without zwvcgphagxc90Laryngitis02/23/2015 12/26/2015Drug/chem diab w neuro comp w diab autonm (poly)/10/2015 12/26/2015Papanicolaou smear of cervix with low grade squamous intraepithelial lesion (LGSIL)Pain in joint, ankle and foot09/27/2014 12/26/2015ASCUS favor vhpoikgoj34Visit for gynecologic wssuqvmdzxy93Postmenopausal HRT (hormone replacement therapy) Overview: offered Gait eeojkkswsuc82Weakness of both legs Sprain of ankle, leftPCP (pneumocystis jiroveci pneumonia) 06/03/Acute respiratory failure with ocaolrsvp94 Overview: Increased O2 requirement overnight (2L to 5L) - bronchoscopy with BAL/TBLB tomorrow 8 AM. - NPO from midnight - hold tonight dose of lovenox. Radiation amketbwweia24 Overview: 40 mg prednisone daily Immunodeficiency with predominant T-cell defect, Urgency of vshxhhbvhoi17Urinary ehjlwlfhq24 Arm pain, leftBack pain without ejirzreya84/19/2014 12/26/2015Abnormal finding on emnrabv87Elevated sed rate Hyperpigmentation of skin Overview: --resolved --bilateral breast tissue and axilla --order mycolog cream --monitor Ookfprlb84 Overview: - c diff pending Mucositis (ulcerative) due to antineoplastic wjnvbou87 Overview: --improved --oxy prn --mouth care measures. Kbkcmy31 Overview: --improved with protonix Elevated LFTs Overview: --increased AST ALT during chemo, resolved. Excess fluid wsdtej00 Overview: --diuresis as needed --continue to monitor volume status CINV (chemotherapy-induced nausea and vomiting) Overview: --Resolved --Ativan PRN (none used) Peripheral vrsblwvqwe45 Overview: --gabapentin 300mg TID with increased symptoms, bedtime dose of gabapentin increased to 600mg with improvement reported, continue DVT hkuifpbhzjl16 Overview: --platelet count decreasing, d/c heparin SQ --encourage ambulation Viqtvyfp79 Overview: --ambien PRN at HS, with relief, but with vivid dreams, ambien d/c --restoril at 30mg PRN at HS with relief, continue Chronic chest pain Overview: --now resolved --since Hodgkin lymphoma diagnosis per patient Hospital discharge follow-up Overview: --Patient will need to follow up with Dr. Unger after discharge Ajinsbbaxlz82 Overview: --patient taking atenolol 100mg BID at home, now BP running lower, decreased atenolol dose to 50mg BID with hypotension. --increase to 75mg BID, d/t tachycardia(HRs >110 while afebrile), HR now controlled, continue --monitor closely Electrolyte and fluid disorders not elsewhere zrwtilxwou34 DISPOSITION AND FOLLOW-UP Overview: 32 yo female from [place], [place]. Family involved with care, at bedside. 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 will start PO pain meds today 10/27. tolerating percocet, pain relatively well controlled. Hodgkin's disease with nodular rtrzetnju87 Overview: Oncology history (per Dr. 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 Hodgkin's disease, zixkudpegzy95Vaginal rafdchkr49/07/2016 Overview: --likely from thrombocytopenia. No menses in prior 8 months. 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 Premature ykwdpygoz95/07/2016Postmenopausal atrophic /07/2016 Wsvdifixqdz07/07/2016documented as of this encounter (statuses as of 09/13/2022) [facility] History of Past illness Narrative* ProblemNoted Date Diagnosed DateResolved DateMenorrhagia with regular cycle Overview: Added automatically from request for surgery [id number] History of pulmonary ictgpaql11Neoplastic (malignant) related csktzer94Hidradenitis lkuwvtonelk29Vitamin D kggcnqtkvl94HyperCKemiaElevated aldolase levelChronic pain of both kneesPain in joint, multiple sitesMyalgiaFatigue Malaise and ywfrndz82/04/Gastroesophageal reflux disease without nowvdvbwisl50Laryngitis02/23/2015 12/26/2015Drug/chem diab w neuro comp w diab autonm (poly)hojjfjdwei39/10/2015 12/26/2015Papanicolaou smear of cervix with low grade squamous intraepithelial lesion (LGSIL)Pain in joint, ankle and foot09/27/2014 12/26/2015ASCUS favor ntbgbmesi80Visit for gynecologic lzrcddwxdmg62Postmenopausal HRT (hormone replacement therapy) Overview: offered Gait vrfrnylhdbs42Weakness of both legs Sprain of ankle, leftPCP (pneumocystis jiroveci pneumonia) Acute respiratory failure with yjvsogltd49 Overview: Increased O2 requirement overnight (2L to 5L) - bronchoscopy with BAL/TBLB tomorrow 8 AM. - NPO from midnight - hold tonight dose of lovenox. Radiation uzhrrjhtngo84 Overview: 40 mg prednisone daily Immunodeficiency with predominant T-cell defect, bdtohqaqkry49 Urgency of pcadzbtoyvs85Urinary wulrnxtyx88 Arm pain, leftBack pain without dzbusufzn04/19/2014 12/26/2015Abnormal finding on hkvjaib07Elevated sed rate Hyperpigmentation of skin Overview: --resolved --bilateral breast tissue and axilla --order mycolog cream --monitor Bejwenzy86 Overview: - c diff pending Mucositis (ulcerative) due to antineoplastic wbabhhb10 Overview: --improved --oxy prn --mouth care measures. Jzfljy06 Overview: --improved with protonix Elevated LFTs Overview: --increased AST ALT during chemo, resolved. Excess fluid uhgcyj92 Overview: --diuresis as needed --continue to monitor volume status CINV (chemotherapy-induced nausea and vomiting) Overview: --Resolved --Ativan PRN (none used) Peripheral fxuvjlxhxt18 Overview: --gabapentin 300mg TID with increased symptoms, bedtime dose of gabapentin increased to 600mg with improvement reported, continue DVT wznmqfqdumq53 Overview: --platelet count decreasing, d/c heparin SQ --encourage ambulation Llfwupaj18 Overview: --ambien PRN at HS, with relief, but with vivid dreams, ambien d/c --restoril at 30mg PRN at HS with relief, continue Chronic chest pain Overview: --now resolved --since Hodgkin lymphoma diagnosis per patient Hospital discharge follow-up Overview: --Patient will need to follow up with Dr. Unger after discharge Wkvnhyjjmfv04 Overview: --patient taking atenolol 100mg BID at home, now BP running lower, decreased atenolol dose to 50mg BID with hypotension. --increase to 75mg BID, d/t tachycardia(HRs >110 while afebrile), HR now controlled, continue --monitor closely Electrolyte and fluid disorders not elsewhere fqgwrayhyq92 DISPOSITION AND FOLLOW-UP Overview: 32 yo female from [place]. Family involved with care, at bedside. 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 will start PO pain meds today 10/27. tolerating percocet, pain relatively well controlled. Hodgkin's disease with nodular rtaqckghm65 Overview: Oncology history (per Dr. 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 Hodgkin's disease, nmelhynxnck83Vaginal rctxmepo20/07/2016 Overview: --likely from thrombocytopenia. No menses in prior 8 months. 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 Premature /07/2016Postmenopausal atrophic /07/2016 Uwnbmntvxjy02/07/2016documented as of this encounter (statuses as of 09/28/2022) [facility] History of Past illness Narrative* ProblemNoted Date Diagnosed DateResolved DateMenorrhagia with regular cycle Overview: Added automatically from request for surgery [id number] History of pulmonary flyyqzee37Neoplastic (malignant) related hqutxhv43Hidradenitis xszjpnxwerg40Vitamin D zyfanxvvvn91HyperCKemiaElevated aldolase levelChronic pain of both kneesPain in joint, multiple sitesMyalgiaFatigue Malaise and voyiomc12Gastroesophageal reflux disease without ncvwolsmnil88Laryngitis02/23/2015 12/26/2015Drug/chem diab w neuro comp w diab autonm (poly)mnmzicwrxp40/10/2015 12/26/2015Papanicolaou smear of cervix with low grade squamous intraepithelial lesion (LGSIL)Pain in joint, ankle and foot09/27/2014 12/26/2015ASCUS favor anjnwewpj71Visit for gynecologic qxwrgavkdxs30Postmenopausal HRT (hormone replacement therapy) Overview: offered Gait myjcmtvmlwk73Weakness of both legs Sprain of ankle, leftPCP (pneumocystis jiroveci pneumonia) Acute respiratory failure with yhywdrosb94 Overview: Increased O2 requirement overnight (2L to 5L) - bronchoscopy with BAL/TBLB tomorrow 8 AM. - NPO from midnight - hold tonight dose of lovenox. Radiation nnljibjebou53 Overview: 40 mg prednisone daily Immunodeficiency with predominant T-cell defect, zrodgzrteue22 Urgency of rghhazxlkhh78Urinary ujsurdoiz32 Arm pain, leftBack pain without ucaapvhni78/19/2014 12/26/2015Abnormal finding on slqjyxa92Elevated sed rate Hyperpigmentation of skin Overview: --resolved --bilateral breast tissue and axilla --order mycolog cream --monitor Rztektuz39 Overview: - c diff pending Mucositis (ulcerative) due to antineoplastic Overview: --improved --oxy prn --mouth care measures. Ddebmc30 Overview: --improved with protonix Elevated LFTs Overview: --increased AST ALT during chemo, resolved. Excess fluid ztexvt71 Overview: --diuresis as needed --continue to monitor volume status CINV (chemotherapy-induced nausea and vomiting) Overview: --Resolved --Ativan PRN (none used) Peripheral lpxwympvdi57 Overview: --gabapentin 300mg TID with increased symptoms, bedtime dose of gabapentin increased to 600mg with improvement reported, continue DVT slbdinyretw00 Overview: --platelet count decreasing, d/c heparin SQ --encourage ambulation Ywzspcpu25 Overview: --ambien PRN at HS, with relief, but with vivid dreams, ambien d/c --restoril at 30mg PRN at HS with relief, continue Chronic chest pain Overview: --now resolved --since Hodgkin lymphoma diagnosis per patient Hospital discharge follow-up Overview: --Patient will need to follow up with Dr. Unger after discharge Palugfxttzc51 Overview: --patient taking atenolol 100mg BID at home, now BP running lower, decreased atenolol dose to 50mg BID with hypotension. --increase to 75mg BID, d/t tachycardia(HRs >110 while afebrile), HR now controlled, continue --monitor closely Electrolyte and fluid disorders not elsewhere sapxbrcuuw69 DISPOSITION AND FOLLOW-UP Overview: 32 yo female from [place], [place]. Family involved with care, at bedside. 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 will start PO pain meds today 10/27. tolerating percocet, pain relatively well controlled. Hodgkin's disease with nodular pwiburyxs34 Overview: Oncology history (per Dr. 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 Hodgkin's disease, oqjysdfpmaj12Vaginal beoktmhi05/07/2016 Overview: --likely from thrombocytopenia. No menses in prior 8 months. 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 Premature xuoklqhnj47/07/2016Postmenopausal atrophic troeggwlg51/07/2016 Ecmvegenqff37/07/2016documented as of this encounter (statuses as of 10/08/2022) [facility] History of Past illness Narrative* ProblemNoted Date Diagnosed DateResolved DateMenorrhagia with regular cycle Overview: Added automatically from request for surgery [id number] History of pulmonary ybuuvpzj66Neoplastic (malignant) related izdrvlb79Hidradenitis ayopvrzhmql47Vitamin D tuijduxljo29HyperCKemiaElevated aldolase levelChronic pain of both kneesPain in joint, multiple sitesMyalgiaFatigue Malaise and jjsgmaw40Gastroesophageal reflux disease without xiexmuyhbwp62Laryngitis02/23/2015 12/26/2015Drug/chem diab w neuro comp w diab autonm (poly)sjxltfofrr78/10/2015 12/26/2015Papanicolaou smear of cervix with low grade squamous intraepithelial lesion (LGSIL)Pain in joint, ankle and foot09/27/2014 12/26/2015ASCUS favor eatbimwuw40Visit for gynecologic vpavihcruaj29Postmenopausal HRT (hormone replacement therapy) Overview: offered Gait vgbqeziohtb63Weakness of both legs Sprain of ankle, leftPCP (pneumocystis jiroveci pneumonia) Acute respiratory failure with sfirvplxs94 Overview: Increased O2 requirement overnight (2L to 5L) - bronchoscopy with BAL/TBLB tomorrow 8 AM. - NPO from midnight - hold tonight dose of lovenox. Radiation curhcgzfgte09 Overview: 40 mg prednisone daily Immunodeficiency with predominant T-cell defect, kqnjunblogy43 Urgency of ecvycjnbulo93Urinary lxsfbpkvu92 Arm pain, leftBack pain without vquulkmfq53/19/2014 12/26/2015Abnormal finding on gfpydfk77Elevated sed rate Hyperpigmentation of skin Overview: --resolved --bilateral breast tissue and axilla --order mycolog cream --monitor Woiavfqi21 Overview: - c diff pending Mucositis (ulcerative) due to antineoplastic pspwnja22 Overview: --improved --oxy prn --mouth care measures. Rurxqb68 Overview: --improved with protonix Elevated LFTs Overview: --increased AST ALT during chemo, resolved. Excess fluid Overview: --diuresis as needed --continue to monitor volume status CINV (chemotherapy-induced nausea and vomiting) Overview: --Resolved --Ativan PRN (none used) Peripheral dgwwpgbodd07 Overview: --gabapentin 300mg TID with increased symptoms, bedtime dose of gabapentin increased to 600mg with improvement reported, continue DVT ykqleisdzvl25 Overview: --platelet count decreasing, d/c heparin SQ --encourage ambulation Sunqdote18 Overview: --ambien PRN at HS, with relief, but with vivid dreams, ambien d/c --restoril at 30mg PRN at HS with relief, continue Chronic chest pain Overview: --now resolved --since Hodgkin lymphoma diagnosis per patient Hospital discharge follow-up Overview: --Patient will need to follow up with Dr. Unger after discharge Vtekzxfydwx40 Overview: --patient taking atenolol 100mg BID at home, now BP running lower, decreased atenolol dose to 50mg BID with hypotension. --increase to 75mg BID, d/t tachycardia(HRs >110 while afebrile), HR now controlled, continue --monitor closely Electrolyte and fluid disorders not elsewhere qulhtwdljj00 DISPOSITION AND FOLLOW-UP Overview: 32 yo female from [place], [place]. Family involved with care, at bedside. 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 will start PO pain meds today 10/27. tolerating percocet, pain relatively well controlled. Hodgkin's disease with nodular wrcqgaqne73 Overview: Oncology history (per Dr. 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 Hodgkin's disease, mhfalcabxrz06Vaginal uvjglrsc12/07/2016 Overview: --likely from thrombocytopenia. No menses in prior 8 months. 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 Premature ytqklazvb97/07/2016Postmenopausal atrophic ztyigvojt53/07/2016 Shgzrzgjmpa34/07/2016documented as of this encounter (statuses as of 10/09/2022) [facility]2018 History of Past illness Narrative* ProblemNoted Date Diagnosed DateResolved DateMenorrhagia with regular cycle Overview: Added automatically from request for surgery [id number] History of pulmonary mjnvxhdo80Neoplastic (malignant) related cirekub63Hidradenitis htgdrqomoid20Vitamin D gwktchzfpg84HyperCKemiaElevated aldolase levelChronic pain of both kneesPain in joint, multiple sitesMyalgiaFatigue Malaise and xjpxbal22Gastroesophageal reflux disease without xwzvfmpnnty42Laryngitis02/23/2015 12/26/2015Drug/chem diab w neuro comp w diab autonm (poly)fksqibykgf39/10/2015 12/26/2015Papanicolaou smear of cervix with low grade squamous intraepithelial lesion (LGSIL)Pain in joint, ankle and foot09/27/2014 12/26/2015ASCUS favor dzsrvystn59Visit for gynecologic mdhhsqfnkql36Postmenopausal HRT (hormone replacement therapy) Overview: offered Gait revhmxgxibf35Weakness of both legs Sprain of ankle, leftPCP (pneumocystis jiroveci pneumonia) Acute respiratory failure with aqbxbtwio26 Overview: Increased O2 requirement overnight (2L to 5L) - bronchoscopy with BAL/TBLB tomorrow 8 AM. - NPO from midnight - hold tonight dose of lovenox. Radiation Overview: 40 mg prednisone daily Immunodeficiency with predominant T-cell defect, cfkmhohqetl01 Urgency of spvvwhirdso78Urinary kmihxjczd42 Arm pain, leftBack pain without jepswerkp24/19/2014 12/26/2015Abnormal finding on sqoddnr08Elevated sed rate Hyperpigmentation of skin Overview: --resolved --bilateral breast tissue and axilla --order mycolog cream --monitor Wxktwafa55 Overview: - c diff pending Mucositis (ulcerative) due to antineoplastic Overview: --improved --oxy prn --mouth care measures. Jsgqaf79 Overview: --improved with protonix Elevated LFTs Overview: --increased AST ALT during chemo, resolved. Excess fluid jqluvb77 Overview: --diuresis as needed --continue to monitor volume status CINV (chemotherapy-induced nausea and vomiting) Overview: --Resolved --Ativan PRN (none used) Peripheral eqtzphstpa30 Overview: --gabapentin 300mg TID with increased symptoms, bedtime dose of gabapentin increased to 600mg with improvement reported, continue DVT pcermkhcfrf39 Overview: --platelet count decreasing, d/c heparin SQ --encourage ambulation Saewiihj79 Overview: --ambien PRN at HS, with relief, but with vivid dreams, ambien d/c --restoril at 30mg PRN at HS with relief, continue Chronic chest pain Overview: --now resolved --since Hodgkin lymphoma diagnosis per patient Hospital discharge follow-up Overview: --Patient will need to follow up with Dr. Unger after discharge Fpovdqvgxfw05 Overview: --patient taking atenolol 100mg BID at home, now BP running lower, decreased atenolol dose to 50mg BID with hypotension. --increase to 75mg BID, d/t tachycardia(HRs >110 while afebrile), HR now controlled, continue --monitor closely Electrolyte and fluid disorders not elsewhere ghlsxmijfp85 DISPOSITION AND FOLLOW-UP Overview: 32 yo female from [place], [place]. Family involved with care, at bedside. 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 will start PO pain meds today 10/27. tolerating percocet, pain relatively well controlled. Hodgkin's disease with nodular gypwusqyo69 Overview: Oncology history (per Dr. 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 Hodgkin's disease, rakcoahtshw92Vaginal glqqqxab34/07/2016 Overview: --likely from thrombocytopenia. No menses in prior 8 months. 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 Premature zhlqmqraa12/07/2016Postmenopausal atrophic /07/2016 Ofeykshgpyl17/07/2016documented as of this encounter (statuses as of 10/09/2022) [facility] History of Past illness Narrative* ProblemNoted Date Diagnosed DateResolved DateMenorrhagia with regular cycle Overview: Added automatically from request for surgery [id number] History of pulmonary ochmoopy26Neoplastic (malignant) related mnbvzwf05Hidradenitis cxisthidsme79Vitamin D kfmmriadlr11HyperCKemiaElevated aldolase levelChronic pain of both kneesPain in joint, multiple sitesMyalgiaFatigue Malaise and vhqibjj96Gastroesophageal reflux disease without bqyhhrbkrax73Laryngitis02/23/2015 12/26/2015Drug/chem diab w neuro comp w diab autonm (poly)zxwpkklroo42/10/2015 12/26/2015Papanicolaou smear of cervix with low grade squamous intraepithelial lesion (LGSIL)Pain in joint, ankle and foot09/27/2014 12/26/2015ASCUS favor ushxtkeug92Visit for gynecologic ihaxuiedhwr36Postmenopausal HRT (hormone replacement therapy) Overview: offered Gait ysxvyblyhud76Weakness of both legs Sprain of ankle, leftPCP (pneumocystis jiroveci pneumonia) Acute respiratory failure with bplevzvuq13 Overview: Increased O2 requirement overnight (2L to 5L) - bronchoscopy with BAL/TBLB tomorrow 8 AM. - NPO from midnight - hold tonight dose of lovenox. Radiation Overview: 40 mg prednisone daily Immunodeficiency with predominant T-cell defect, ceieknqdntc49 Urgency of hxakijzjmes55Urinary eeouttxhj02 Arm pain, leftBack pain without nvfthnyni82/19/2014 12/26/2015Abnormal finding on fsqrlix85Elevated sed rate Hyperpigmentation of skin Overview: --resolved --bilateral breast tissue and axilla --order mycolog cream --monitor Xfgegjyf72 Overview: - c diff pending Mucositis (ulcerative) due to antineoplastic tdagezu54 Overview: --improved --oxy prn --mouth care measures. Lvrcza59 Overview: --improved with protonix Elevated LFTs Overview: --increased AST ALT during chemo, resolved. Excess fluid egutks09 Overview: --diuresis as needed --continue to monitor volume status CINV (chemotherapy-induced nausea and vomiting) Overview: --Resolved --Ativan PRN (none used) Peripheral cpivtrmcld58 Overview: --gabapentin 300mg TID with increased symptoms, bedtime dose of gabapentin increased to 600mg with improvement reported, continue DVT qozjljuendh53 Overview: --platelet count decreasing, d/c heparin SQ --encourage ambulation Bpvaedxi47 Overview: --ambien PRN at HS, with relief, but with vivid dreams, ambien d/c --restoril at 30mg PRN at HS with relief, continue Chronic chest pain Overview: --now resolved --since Hodgkin lymphoma diagnosis per patient Hospital discharge follow-up Overview: --Patient will need to follow up with Dr. Unger after discharge Oqocdddixoi69 Overview: --patient taking atenolol 100mg BID at home, now BP running lower, decreased atenolol dose to 50mg BID with hypotension. --increase to 75mg BID, d/t tachycardia(HRs >110 while afebrile), HR now controlled, continue --monitor closely Electrolyte and fluid disorders not elsewhere abefgzzhzv89 DISPOSITION AND FOLLOW-UP Overview: 32 yo female from [place], [place]. Family involved with care, at bedside. 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 will start PO pain meds today 10/27. tolerating percocet, pain relatively well controlled. Hodgkin's disease with nodular ccmdurozt96 Overview: Oncology history (per Dr. 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 Hodgkin's disease, zmubkgksykt90Vaginal csbojofs33/07/2016 Overview: --likely from thrombocytopenia. No menses in prior 8 months. 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 Premature mrqsspnli46/07/2016Postmenopausal atrophic hcdglczqu97/07/2016 Jbcjuntqniz42/07/2016documented as of this encounter (statuses as of 10/10/2022) [facility] History of Past illness Narrative* ProblemNoted Date Diagnosed DateResolved DateMenorrhagia with regular cycle Overview: Added automatically from request for surgery [id number] History of pulmonary xcdohrdq48Neoplastic (malignant) related jnmlzys04Hidradenitis mkaqiiygapl31Vitamin D czlcxhpmxt22HyperCKemiaElevated aldolase levelChronic pain of both kneesPain in joint, multiple sitesMyalgiaFatigue Malaise and gmqbbpr90Gastroesophageal reflux disease without ncppmshgxhj16Laryngitis02/23/2015 12/26/2015Drug/chem diab w neuro comp w diab autonm (poly)/10/2015 12/26/2015Papanicolaou smear of cervix with low grade squamous intraepithelial lesion (LGSIL)Pain in joint, ankle and foot09/27/2014 12/26/2015ASCUS favor exupnfhbk47Visit for gynecologic kixmbbgdptz86Postmenopausal HRT (hormone replacement therapy) Overview: offered Gait olllprzgvxn20Weakness of both legs Sprain of ankle, leftPCP (pneumocystis jiroveci pneumonia) Acute respiratory failure with tafgmfbxl96 Overview: Increased O2 requirement overnight (2L to 5L) - bronchoscopy with BAL/TBLB tomorrow 8 AM. - NPO from midnight - hold tonight dose of lovenox. Radiation upgjoljbiix57 Overview: 40 mg prednisone daily Immunodeficiency with predominant T-cell defect, qsilclhhmkc00 Urgency of muczeyvsnjo23Urinary kperewssk64 Arm pain, leftBack pain without ydbqdyphe36/19/2014 12/26/2015Abnormal finding on xsdajic44Elevated sed rate Hyperpigmentation of skin Overview: --resolved --bilateral breast tissue and axilla --order mycolog cream --monitor Obpfykve82 Overview: - c diff pending Mucositis (ulcerative) due to antineoplastic hqikmth99 Overview: --improved --oxy prn --mouth care measures. Pqhcwt13 Overview: --improved with protonix Elevated LFTs Overview: --increased AST ALT during chemo, resolved. Excess fluid Overview: --diuresis as needed --continue to monitor volume status CINV (chemotherapy-induced nausea and vomiting) Overview: --Resolved --Ativan PRN (none used) Peripheral kbrxpbjehc26 Overview: --gabapentin 300mg TID with increased symptoms, bedtime dose of gabapentin increased to 600mg with improvement reported, continue DVT krabdhycwja69 Overview: --platelet count decreasing, d/c heparin SQ --encourage ambulation Kwfrdiwk16 Overview: --ambien PRN at HS, with relief, but with vivid dreams, ambien d/c --restoril at 30mg PRN at HS with relief, continue Chronic chest pain Overview: --now resolved --since Hodgkin lymphoma diagnosis per patient Hospital discharge follow-up Overview: --Patient will need to follow up with Dr. Unger after discharge Sdwxpfvleub58 Overview: --patient taking atenolol 100mg BID at home, now BP running lower, decreased atenolol dose to 50mg BID with hypotension. --increase to 75mg BID, d/t tachycardia(HRs >110 while afebrile), HR now controlled, continue --monitor closely Electrolyte and fluid disorders not elsewhere iwkntojcxw09 DISPOSITION AND FOLLOW-UP Overview: 32 yo female from [place]. Family involved with care, at bedside. plan to discharge patient home - will arrange with case management for post op care as needed - follow up in OPD in 7-10 days Post-op pain09/09/633013/08/2015 Overview: currently well controlled with [employer] MACHINE OPERATOR. will start PO pain meds today 10/27. tolerating percocet, pain relatively well controlled. Hodgkin's disease with nodular smknnoqnc91 Overview: Oncology history (per Dr. 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 Hodgkin's disease, rgmairspnds06Vaginal icuggvbo96/07/2016 Overview: --likely from thrombocytopenia. No menses in prior 8 months. 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 Premature /07/2016Postmenopausal atrophic nasbvsfba21/07/2016 Akcjiiaydau26/07/2016documented as of this encounter (statuses as of 10/10/2022) [facility] History of Past illness Narrative* ProblemNoted Date Diagnosed DateResolved DateMenorrhagia with regular cycle Overview: Added automatically from request for surgery [id number] History of pulmonary rumfsfjo03Neoplastic (malignant) related oxpxjwu44Hidradenitis wlopgfggcqf70Vitamin D jlkwxihcxb79HyperCKemiaElevated aldolase levelChronic pain of both kneesPain in joint, multiple sitesMyalgiaFatigue Malaise and hzycnru16Gastroesophageal reflux disease without usvurgkcwgd24Laryngitis02/23/2015 12/26/2015Drug/chem diab w neuro comp w diab autonm (poly)bpygnuyffq91/10/2015 12/26/2015Papanicolaou smear of cervix with low grade squamous intraepithelial lesion (LGSIL)Pain in joint, ankle and foot09/27/2014 12/26/2015ASCUS favor zbcjlhcjs14Visit for gynecologic oaedzxcrqhs63Postmenopausal HRT (hormone replacement therapy) Overview: offered Gait wstwqoabwnp48Weakness of both legs Sprain of ankle, leftPCP (pneumocystis jiroveci pneumonia) Acute respiratory failure with krjufzzrn84 Overview: Increased O2 requirement overnight (2L to 5L) - bronchoscopy with BAL/TBLB tomorrow 8 AM. - NPO from midnight - hold tonight dose of lovenox. Radiation episedyevdt88 Overview: 40 mg prednisone daily Immunodeficiency with predominant T-cell defect, ueskhtgpncb61 Urgency of bocetrexddz09Urinary zfvidnydm82 Arm pain, leftBack pain without wddmzoehg54/19/2014 12/26/2015Abnormal finding on qdotqmn12Elevated sed rate Hyperpigmentation of skin Overview: --resolved --bilateral breast tissue and axilla --order mycolog cream --monitor Waillcgj10 Overview: - c diff pending Mucositis (ulcerative) due to antineoplastic zwurffu91 Overview: --improved --oxy prn --mouth care measures. Ffxvpf81 Overview: --improved with protonix Elevated LFTs Overview: --increased AST ALT during chemo, resolved. Excess fluid wetogn51 Overview: --diuresis as needed --continue to monitor volume status CINV (chemotherapy-induced nausea and vomiting) Overview: --Resolved --Ativan PRN (none used) Peripheral dfwtyfkwge52 Overview: --gabapentin 300mg TID with increased symptoms, bedtime dose of gabapentin increased to 600mg with improvement reported, continue DVT xgcqgktbmex74 Overview: --platelet count decreasing, d/c heparin SQ --encourage ambulation Hnirzoly66 Overview: --ambien PRN at HS, with relief, but with vivid dreams, ambien d/c --restoril at 30mg PRN at HS with relief, continue Chronic chest pain Overview: --now resolved --since Hodgkin lymphoma diagnosis per patient Hospital discharge follow-up Overview: --Patient will need to follow up with Dr. Unger after discharge Dyipvjgeakq47 Overview: --patient taking atenolol 100mg BID at home, now BP running lower, decreased atenolol dose to 50mg BID with hypotension. --increase to 75mg BID, d/t tachycardia(HRs >110 while afebrile), HR now controlled, continue --monitor closely Electrolyte and fluid disorders not elsewhere guzgbzrjvo52 DISPOSITION AND FOLLOW-UP Overview: 32 yo female from [place]. Family involved with care, at bedside. 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 will start PO pain meds today 10/27. tolerating percocet, pain relatively well controlled. Hodgkin's disease with nodular givjgufqd10 Overview: Oncology history (per Dr. 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 Hodgkin's disease, sqwxegfxsev40Vaginal poalbuqh31/07/2016 Overview: --likely from thrombocytopenia. No menses in prior 8 months. 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 Premature afgwjvfxe54/07/2016Postmenopausal atrophic xdvbpaikw49/07/2016 Eorlbkwujnf08/07/2016documented as of this encounter (statuses as of 10/18/2022) [facility] History of Past illness Narrative* ProblemNoted Date Diagnosed DateResolved DateMenorrhagia with regular cycle Overview: Added automatically from request for surgery [id number] History of pulmonary ypdjqzjy00Neoplastic (malignant) related wppjpck33Hidradenitis nbruwmgdjqh39Vitamin D hdpjbeiwrg55HyperCKemiaElevated aldolase levelChronic pain of both kneesPain in joint, multiple sitesMyalgiaFatigue Malaise and zzezukj48Gastroesophageal reflux disease without ryxbbvmrajh40Laryngitis02/23/2015 12/26/2015Drug/chem diab w neuro comp w diab autonm (poly)kxvpfieirp70/10/2015 12/26/2015Papanicolaou smear of cervix with low grade squamous intraepithelial lesion (LGSIL)Pain in joint, ankle and foot09/27/2014 12/26/2015ASCUS favor hatxkvimw69Visit for gynecologic otphceggfcc33Postmenopausal HRT (hormone replacement therapy) Overview: offered Gait zphejpzndjb93Weakness of both legs Sprain of ankle, leftPCP (pneumocystis jiroveci pneumonia) Acute respiratory failure with Overview: Increased O2 requirement overnight (2L to 5L) - bronchoscopy with BAL/TBLB tomorrow 8 AM. - NPO from midnight - hold tonight dose of lovenox. Radiation otwsaykyqzj05 Overview: 40 mg prednisone daily Immunodeficiency with predominant T-cell defect, porupkdzzti81 Urgency of mfqjzbouqjm66Urinary dchaecdio81 Arm pain, leftBack pain without xvfsojvho48/19/2014 12/26/2015Abnormal finding on ymcxuwt53Elevated sed rate Hyperpigmentation of skin Overview: --resolved --bilateral breast tissue and axilla --order mycolog cream --monitor Ghwpgocg25 Overview: - c diff pending Mucositis (ulcerative) due to antineoplastic Overview: --improved --oxy prn --mouth care measures. Ptectc80 Overview: --improved with protonix Elevated LFTs Overview: --increased AST ALT during chemo, resolved. Excess fluid oswlfl73 Overview: --diuresis as needed --continue to monitor volume status CINV (chemotherapy-induced nausea and vomiting) Overview: --Resolved --Ativan PRN (none used) Peripheral efxierkiqr93 Overview: --gabapentin 300mg TID with increased symptoms, bedtime dose of gabapentin increased to 600mg with improvement reported, continue DVT zlqxwmxpgga59 Overview: --platelet count decreasing, d/c heparin SQ --encourage ambulation Pydcvrms84 Overview: --ambien PRN at HS, with relief, but with vivid dreams, ambien d/c --restoril at 30mg PRN at HS with relief, continue Chronic chest pain Overview: --now resolved --since Hodgkin lymphoma diagnosis per patient Hospital discharge follow-up Overview: --Patient will need to follow up with Dr. Unger after discharge Fgeigcwqslk52 Overview: --patient taking atenolol 100mg BID at home, now BP running lower, decreased atenolol dose to 50mg BID with hypotension. --increase to 75mg BID, d/t tachycardia(HRs >110 while afebrile), HR now controlled, continue --monitor closely Electrolyte and fluid disorders not elsewhere rvqjpiehfc34 DISPOSITION AND FOLLOW-UP Overview: 32 yo female from [place], [place]. Family involved with care, at bedside. 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 will start PO pain meds today 10/27. tolerating percocet, pain relatively well controlled. Hodgkin's disease with nodular ntfmfjeeb21 Overview: Oncology history (per Dr. 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 Hodgkin's disease, kgauytshctk24Vaginal nnleckqd66/07/2016 Overview: --likely from thrombocytopenia. No menses in prior 8 months. 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 Premature yqdvfswxy88/07/2016Postmenopausal atrophic cyczzdxpx16/07/2016 Dnmgyujusko73/07/2016documented as of this encounter (statuses as of 10/18/2022) [facility] History of Past illness Narrative* ProblemNoted Date Diagnosed DateResolved DateMenorrhagia with regular cycle Overview: Added automatically from request for surgery [id number] History of pulmonary ugqxzcks08Neoplastic (malignant) related hieroep72Hidradenitis lahvjnfczxu80Vitamin D dnvghecutm24HyperCKemiaElevated aldolase levelChronic pain of both kneesPain in joint, multiple sitesMyalgiaFatigue Malaise and sbgcglt04Gastroesophageal reflux disease without mjlnmmuskxv67Laryngitis02/23/2015 12/26/2015Drug/chem diab w neuro comp w diab autonm (poly)qquckzjwef70/10/2015 12/26/2015Papanicolaou smear of cervix with low grade squamous intraepithelial lesion (LGSIL)Pain in joint, ankle and foot09/27/2014 12/26/2015ASCUS favor ufvtflkml43Visit for gynecologic puourybbzuy20Postmenopausal HRT (hormone replacement therapy) Overview: offered Gait eajqdgeyfcu25Weakness of both legs Sprain of ankle, leftPCP (pneumocystis jiroveci pneumonia) Acute respiratory failure with hankdaaqg53 Overview: Increased O2 requirement overnight (2L to 5L) - bronchoscopy with BAL/TBLB tomorrow 8 AM. - NPO from midnight - hold tonight dose of lovenox. Radiation evwqjggfbzm15 Overview: 40 mg prednisone daily Immunodeficiency with predominant T-cell defect, xxgnlwdtijw20 Urgency of dmwwtsrgalw38Urinary ywichqbgb00 Arm pain, leftBack pain without kszfaieqm13/19/2014 12/26/2015Abnormal finding on zmchtqa47Elevated sed rate Hyperpigmentation of skin Overview: --resolved --bilateral breast tissue and axilla --order mycolog cream --monitor Tewqtemj17 Overview: - c diff pending Mucositis (ulcerative) due to antineoplastic cyvmkfl48 Overview: --improved --oxy prn --mouth care measures. Hjmseq44 Overview: --improved with protonix Elevated LFTs Overview: --increased AST ALT during chemo, resolved. Excess fluid ujdcby01 Overview: --diuresis as needed --continue to monitor volume status CINV (chemotherapy-induced nausea and vomiting) Overview: --Resolved --Ativan PRN (none used) Peripheral xwpygalwdr62 Overview: --gabapentin 300mg TID with increased symptoms, bedtime dose of gabapentin increased to 600mg with improvement reported, continue DVT efzzvojitbl46 Overview: --platelet count decreasing, d/c heparin SQ --encourage ambulation Egphwhij53 Overview: --ambien PRN at HS, with relief, but with vivid dreams, ambien d/c --restoril at 30mg PRN at HS with relief, continue Chronic chest pain Overview: --now resolved --since Hodgkin lymphoma diagnosis per patient Hospital discharge follow-up Overview: --Patient will need to follow up with Dr. Unger after discharge Wvnebquzxev38 Overview: --patient taking atenolol 100mg BID at home, now BP running lower, decreased atenolol dose to 50mg BID with hypotension. --increase to 75mg BID, d/t tachycardia(HRs >110 while afebrile), HR now controlled, continue --monitor closely Electrolyte and fluid disorders not elsewhere nugdrdmhwz84 DISPOSITION AND FOLLOW-UP Overview: 32 yo female from [place], [place]. Family involved with care, at bedside. 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 will start PO pain meds today 10/27. tolerating percocet, pain relatively well controlled. Hodgkin's disease with nodular lfqfolkki27 Overview: Oncology history (per Dr. 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 Hodgkin's disease, fbalfwtyuxw83Vaginal /07/2016 Overview: --likely from thrombocytopenia. No menses in prior 8 months. 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 Premature jpfveexfo81/07/2016Postmenopausal atrophic ncsosudce24/07/2016 Nnjkzbmfohs71/07/2016documented as of this encounter (statuses as of 10/19/2022) [facility] History of Past illness Narrative* ProblemNoted Date Diagnosed DateResolved DateMenorrhagia with regular cycle Overview: Added automatically from request for surgery [id number] History of pulmonary lqdbqzbq57Neoplastic (malignant) related ddbpueb60Hidradenitis sdnqdqepbgq86Vitamin D tkdaicdizs26HyperCKemiaElevated aldolase levelChronic pain of both kneesPain in joint, multiple sitesMyalgiaFatigue Malaise and baukcbj97Gastroesophageal reflux disease without qpyhsnilxph21Laryngitis02/23/2015 12/26/2015Drug/chem diab w neuro comp w diab autonm (poly)qntbtljdyf15/10/2015 12/26/2015Papanicolaou smear of cervix with low grade squamous intraepithelial lesion (LGSIL)Pain in joint, ankle and foot09/27/2014 12/26/2015ASCUS favor dpztxsapv42Visit for gynecologic oxnhvugkwfo45Postmenopausal HRT (hormone replacement therapy) Overview: offered Gait dykddohfzaw50Weakness of both legs Sprain of ankle, leftPCP (pneumocystis jiroveci pneumonia) Acute respiratory failure with bblshycpc35 Overview: Increased O2 requirement overnight (2L to 5L) - bronchoscopy with BAL/TBLB tomorrow 8 AM. - NPO from midnight - hold tonight dose of lovenox. Radiation Overview: 40 mg prednisone daily Immunodeficiency with predominant T-cell defect, irudwlefnvw46 Urgency of ndcpvkapcmu18Urinary nbdcgyutx84 Arm pain, leftBack pain without kufnqptmb70/19/2014 12/26/2015Abnormal finding on dfyadha07Elevated sed rate Hyperpigmentation of skin Overview: --resolved --bilateral breast tissue and axilla --order mycolog cream --monitor Xpdlgzsh64 Overview: - c diff pending Mucositis (ulcerative) due to antineoplastic eqbejih74 Overview: --improved --oxy prn --mouth care measures. Sahwjw70 Overview: --improved with protonix Elevated LFTs Overview: --increased AST ALT during chemo, resolved. Excess fluid mpnlju58 Overview: --diuresis as needed --continue to monitor volume status CINV (chemotherapy-induced nausea and vomiting) Overview: --Resolved --Ativan PRN (none used) Peripheral tfpvzuwrzl12 Overview: --gabapentin 300mg TID with increased symptoms, bedtime dose of gabapentin increased to 600mg with improvement reported, continue DVT zrtebkqdhea76 Overview: --platelet count decreasing, d/c heparin SQ --encourage ambulation Cujhmiwe94 Overview: --ambien PRN at HS, with relief, but with vivid dreams, ambien d/c --restoril at 30mg PRN at HS with relief, continue Chronic chest pain Overview: --now resolved --since Hodgkin lymphoma diagnosis per patient Hospital discharge follow-up Overview: --Patient will need to follow up with Dr. Unger after discharge Cbtuothvfit12 Overview: --patient taking atenolol 100mg BID at home, now BP running lower, decreased atenolol dose to 50mg BID with hypotension. --increase to 75mg BID, d/t tachycardia(HRs >110 while afebrile), HR now controlled, continue --monitor closely Electrolyte and fluid disorders not elsewhere uwufmtwpml90 DISPOSITION AND FOLLOW-UP Overview: 32 yo female from [place], [place]. Family involved with care, at bedside. 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 will start PO pain meds today 10/27. tolerating percocet, pain relatively well controlled. Hodgkin's disease with nodular vgkadgqvj78 Overview: Oncology history (per Dr. 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 Hodgkin's disease, ytqdawibsfo57Vaginal bovywpyj64/07/2016 Overview: --likely from thrombocytopenia. No menses in prior 8 months. 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 Premature voowxvgme77/07/2016Postmenopausal atrophic tvukxmlre93/07/2016 Zdfmudyruuk90/07/2016documented as of this encounter (statuses as of 10/24/2022) [facility] History of Past illness Narrative* ProblemNoted Date Diagnosed DateResolved DateMenorrhagia with regular cycle Overview: Added automatically from request for surgery [id number] History of pulmonary iimwoobz90Neoplastic (malignant) related iuzfwjf94Hidradenitis ruqrqdrpxxc28Vitamin D pxusurpsyz64HyperCKemiaElevated aldolase levelChronic pain of both kneesPain in joint, multiple sitesMyalgiaFatigue Malaise and kxnncsn12Gastroesophageal reflux disease without pxlbezvvkgm26Laryngitis02/23/2015 12/26/2015Drug/chem diab w neuro comp w diab autonm (poly)jtwvbvysgb77/10/2015 12/26/2015Papanicolaou smear of cervix with low grade squamous intraepithelial lesion (LGSIL)Pain in joint, ankle and foot09/27/2014 12/26/2015ASCUS favor okpjwfrap86Visit for gynecologic qcnzwxyaqld63Postmenopausal HRT (hormone replacement therapy) Overview: offered Gait ntqqtedtlyr12Weakness of both legs Sprain of ankle, leftPCP (pneumocystis jiroveci pneumonia) Acute respiratory failure with bcjhcaage03 Overview: Increased O2 requirement overnight (2L to 5L) - bronchoscopy with BAL/TBLB tomorrow 8 AM. - NPO from midnight - hold tonight dose of lovenox. Radiation fkilearbnkk97 Overview: 40 mg prednisone daily Immunodeficiency with predominant T-cell defect, ldrftytghtz44 Urgency of odkdrsjpgpo16Urinary qbtnnwrgi58 Arm pain, leftBack pain without /19/2014 12/26/2015Abnormal finding on gqzxcja22Elevated sed rate Hyperpigmentation of skin Overview: --resolved --bilateral breast tissue and axilla --order mycolog cream --monitor Qdsulcny24 Overview: - c diff pending Mucositis (ulcerative) due to antineoplastic qckwepj26 Overview: --improved --oxy prn --mouth care measures. Lmcorf53 Overview: --improved with protonix Elevated LFTs Overview: --increased AST ALT during chemo, resolved. Excess fluid bwarym11 Overview: --diuresis as needed --continue to monitor volume status CINV (chemotherapy-induced nausea and vomiting) Overview: --Resolved --Ativan PRN (none used) Peripheral zsttwxomhv33 Overview: --gabapentin 300mg TID with increased symptoms, bedtime dose of gabapentin increased to 600mg with improvement reported, continue DVT zlvvawopjjc23 Overview: --platelet count decreasing, d/c heparin SQ --encourage ambulation Lgonssnl68 Overview: --ambien PRN at HS, with relief, but with vivid dreams, ambien d/c --restoril at 30mg PRN at HS with relief, continue Chronic chest pain Overview: --now resolved --since Hodgkin lymphoma diagnosis per patient Hospital discharge follow-up Overview: --Patient will need to follow up with Dr. Unger after discharge Jrkldqlgdsw50 Overview: --patient taking atenolol 100mg BID at home, now BP running lower, decreased atenolol dose to 50mg BID with hypotension. --increase to 75mg BID, d/t tachycardia(HRs >110 while afebrile), HR now controlled, continue --monitor closely Electrolyte and fluid disorders not elsewhere ddnblhuqnp14 DISPOSITION AND FOLLOW-UP Overview: 32 yo female from [place], [place]. Family involved with care, at bedside. 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 will start PO pain meds today 10/27. tolerating percocet, pain relatively well controlled. Hodgkin's disease with nodular bubgbsosk79 Overview: Oncology history (per Dr. 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 Hodgkin's disease, dumfdwrfcvv33Vaginal opbwbppp65/07/2016 Overview: --likely from thrombocytopenia. No menses in prior 8 months. 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 Premature kyvygnhpr74/07/2016Postmenopausal atrophic kytmfhypr74/07/2016 Oyzbhgegggr20/07/2016documented as of this encounter (statuses as of 10/26/2022) [facility] History of Past illness Narrative* ProblemNoted Date Diagnosed DateResolved DateMenorrhagia with regular cycle Overview: Added automatically from request for surgery [id number] History of pulmonary mfpiiybk90Neoplastic (malignant) related xwdmcqu61Hidradenitis kbgtsbzvupl00Vitamin D rgykzynbam00HyperCKemiaElevated aldolase levelChronic pain of both kneesPain in joint, multiple sitesMyalgiaFatigue Malaise and trqitfm97Gastroesophageal reflux disease without chsplzrigmw81Laryngitis02/23/2015 12/26/2015Drug/chem diab w neuro comp w diab autonm (poly)eisgmmcdlp86/10/2015 12/26/2015Papanicolaou smear of cervix with low grade squamous intraepithelial lesion (LGSIL)Pain in joint, ankle and foot09/27/2014 12/26/2015ASCUS favor ktbxwbclg83Visit for gynecologic kihqpdcxrzm34Postmenopausal HRT (hormone replacement therapy) Overview: offered Gait ovmwsjbpjnr86Weakness of both legs Sprain of ankle, leftPCP (pneumocystis jiroveci pneumonia) Acute respiratory failure with bflijfwon52 Overview: Increased O2 requirement overnight (2L to 5L) - bronchoscopy with BAL/TBLB tomorrow 8 AM. - NPO from midnight - hold tonight dose of lovenox. Radiation jmwhakkazcd60 Overview: 40 mg prednisone daily Immunodeficiency with predominant T-cell defect, yszsllliksm97 Urgency of nzearuuwqdi40Urinary tbqqlvevd25 Arm pain, leftBack pain without hwbtffput21/19/2014 12/26/2015Abnormal finding on shrgxqh56Elevated sed rate Hyperpigmentation of skin Overview: --resolved --bilateral breast tissue and axilla --order mycolog cream --monitor Rwkwwzdq63 Overview: - c diff pending Mucositis (ulcerative) due to antineoplastic Overview: --improved --oxy prn --mouth care measures. Vfvmks52 Overview: --improved with protonix Elevated LFTs Overview: --increased AST ALT during chemo, resolved. Excess fluid dohcwz11 Overview: --diuresis as needed --continue to monitor volume status CINV (chemotherapy-induced nausea and vomiting) Overview: --Resolved --Ativan PRN (none used) Peripheral Overview: --gabapentin 300mg TID with increased symptoms, bedtime dose of gabapentin increased to 600mg with improvement reported, continue DVT spbhajjwkmr29 Overview: --platelet count decreasing, d/c heparin SQ --encourage ambulation Flialylr19 Overview: --ambien PRN at HS, with relief, but with vivid dreams, ambien d/c --restoril at 30mg PRN at HS with relief, continue Chronic chest pain Overview: --now resolved --since Hodgkin lymphoma diagnosis per patient Hospital discharge follow-up Overview: --Patient will need to follow up with Dr. Unger after discharge Tqudozavdtp23 Overview: --patient taking atenolol 100mg BID at home, now BP running lower, decreased atenolol dose to 50mg BID with hypotension. --increase to 75mg BID, d/t tachycardia(HRs >110 while afebrile), HR now controlled, continue --monitor closely Electrolyte and fluid disorders not elsewhere gpjppcvuec38 DISPOSITION AND FOLLOW-UP Overview: 32 yo female from [place]. Family involved with care, at bedside. 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 will start PO pain meds today 10/27. tolerating percocet, pain relatively well controlled. Hodgkin's disease with nodular Overview: Oncology history (per Dr. 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 Hodgkin's disease, dgnjindrfew72Vaginal /07/2016 Overview: --likely from thrombocytopenia. No menses in prior 8 months. 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 Premature mjbzglqey42/07/2016Postmenopausal atrophic cavrravao61/07/2016 Jpqekqbzeei40/07/2016documented as of this encounter (statuses as of 11/06/2022) [facility] History of Past illness Narrative* ProblemNoted Date Diagnosed DateResolved DateMenorrhagia with regular cycle Overview: Added automatically from request for surgery [id number] History of pulmonary wbddbjiq19Neoplastic (malignant) related moxdkmq49Hidradenitis qxhgrywyxhp85Vitamin D tpmwuseyjh66HyperCKemiaElevated aldolase levelChronic pain of both kneesPain in joint, multiple sitesMyalgiaFatigue Malaise and caqxpwq13Gastroesophageal reflux disease without yikemlzdqox33Laryngitis02/23/2015 12/26/2015Drug/chem diab w neuro comp w diab autonm (poly)hoaepxwvcm84/10/2015 12/26/2015Papanicolaou smear of cervix with low grade squamous intraepithelial lesion (LGSIL)Pain in joint, ankle and foot09/27/2014 12/26/2015ASCUS favor weyberzpk99Visit for gynecologic zbepqdwvzyq76Postmenopausal HRT (hormone replacement therapy) Overview: offered Gait wqpxlvuimld93Weakness of both legs Sprain of ankle, leftPCP (pneumocystis jiroveci pneumonia) Acute respiratory failure with srcyrkatk30 Overview: Increased O2 requirement overnight (2L to 5L) - bronchoscopy with BAL/TBLB tomorrow 8 AM. - NPO from midnight - hold tonight dose of lovenox. Radiation obgindqkckw63 Overview: 40 mg prednisone daily Immunodeficiency with predominant T-cell defect, omrvwmnyfyq49 Urgency of iruseskpntk52Urinary qbbvycdxa66 Arm pain, leftBack pain without uimjmqmkl72/19/2014 12/26/2015Abnormal finding on qavgevn01Elevated sed rate Hyperpigmentation of skin Overview: --resolved --bilateral breast tissue and axilla --order mycolog cream --monitor Dcibqopz45 Overview: - c diff pending Mucositis (ulcerative) due to antineoplastic zlkkejg11 Overview: --improved --oxy prn --mouth care measures. Xqahqk83 Overview: --improved with protonix Elevated LFTs Overview: --increased AST ALT during chemo, resolved. Excess fluid Overview: --diuresis as needed --continue to monitor volume status CINV (chemotherapy-induced nausea and vomiting) Overview: --Resolved --Ativan PRN (none used) Peripheral wcaajmpmdm37 Overview: --gabapentin 300mg TID with increased symptoms, bedtime dose of gabapentin increased to 600mg with improvement reported, continue DVT tqeyqiylddx11 Overview: --platelet count decreasing, d/c heparin SQ --encourage ambulation Eavzbjcg86 Overview: --ambien PRN at HS, with relief, but with vivid dreams, bright d/c --restoril at 30mg PRN at HS with relief, continue Chronic chest pain Overview: --now resolved --since Hodgkin lymphoma diagnosis per patient Hospital discharge follow-up Overview: --Patient will need to follow up with Dr. Unger after discharge Mmhvpjkdtyy83 Overview: --patient taking atenolol 100mg BID at home, now BP running lower, decreased atenolol dose to 50mg BID with hypotension. --increase to 75mg BID, d/t tachycardia(HRs >110 while afebrile), HR now controlled, continue --monitor closely Electrolyte and fluid disorders not elsewhere nbdeshomow85 DISPOSITION AND FOLLOW-UP Overview: 32 yo female from [place]. Family involved with care, at bedside. 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 will start PO pain meds today 10/27. tolerating percocet, pain relatively well controlled. Hodgkin's disease with nodular hztwrjahm93 Overview: Oncology history (per Dr. 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 Hodgkin's disease, zhdjhyemojx69Vaginal /07/2016 Overview: --likely from thrombocytopenia. No menses in prior 8 months. 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 Premature gvcxacijd47/07/2016Postmenopausal atrophic ethvbixhq56/07/2016 Tmnrwqrslsb35/07/2016documented as of this encounter (statuses as of 11/11/2022) [facility] History of Past illness Narrative* ProblemNoted Date Diagnosed DateResolved DateMenorrhagia with regular cycle Overview: Added automatically from request for surgery [id number] History of pulmonary swfeyyxq00Neoplastic (malignant) related nldhbln21Hidradenitis fjelzxmrdim63Vitamin D lfdmvjkibt25HyperCKemiaElevated aldolase levelChronic pain of both kneesPain in joint, multiple sitesMyalgiaFatigue Malaise and nuahisr49Gastroesophageal reflux disease without rslwsnukyvp10Laryngitis02/23/2015 12/26/2015Drug/chem diab w neuro comp w diab autonm (poly)apgfhcaakj04/10/2015 12/26/2015Papanicolaou smear of cervix with low grade squamous intraepithelial lesion (LGSIL)Pain in joint, ankle and foot09/27/2014 12/26/2015ASCUS favor frpqxeejy72Visit for gynecologic cqknypgyqdb71Postmenopausal HRT (hormone replacement therapy) Overview: offered Gait mfvadfxagbk39Weakness of both legs Sprain of ankle, leftPCP (pneumocystis jiroveci pneumonia) Acute respiratory failure with ryapsqrxo88 Overview: Increased O2 requirement overnight (2L to 5L) - bronchoscopy with BAL/TBLB tomorrow 8 AM. - NPO from midnight - hold tonight dose of lovenox. Radiation ggtkewdgyft60 Overview: 40 mg prednisone daily Immunodeficiency with predominant T-cell defect, khygfnixtyt37 Urgency of wrwirpumkbz92Urinary ulqznfozy83 Arm pain, leftBack pain without wwixdkefr11/19/2014 12/26/2015Abnormal finding on hkjrmec68Elevated sed rate Hyperpigmentation of skin Overview: --resolved --bilateral breast tissue and axilla --order mycolog cream --monitor Pzwyenol96 Overview: - c diff pending Mucositis (ulcerative) due to antineoplastic Overview: --improved --oxy prn --mouth care measures. Wdhdzo63 Overview: --improved with protonix Elevated LFTs Overview: --increased AST ALT during chemo, resolved. Excess fluid ihevys05 Overview: --diuresis as needed --continue to monitor volume status CINV (chemotherapy-induced nausea and vomiting) Overview: --Resolved --Ativan PRN (none used) Peripheral etvxwtkgjj99 Overview: --gabapentin 300mg TID with increased symptoms, bedtime dose of gabapentin increased to 600mg with improvement reported, continue DVT slftgldclfo74 Overview: --platelet count decreasing, d/c heparin SQ --encourage ambulation Afefvvyh66 Overview: --ambien PRN at HS, with relief, but with vivid dreams, ambien d/c --restoril at 30mg PRN at HS with relief, continue Chronic chest pain Overview: --now resolved --since Hodgkin lymphoma diagnosis per patient Hospital discharge follow-up Overview: --Patient will need to follow up with Dr. Unger after discharge Qdenvywhbfh67 Overview: --patient taking atenolol 100mg BID at home, now BP running lower, decreased atenolol dose to 50mg BID with hypotension. --increase to 75mg BID, d/t tachycardia(HRs >110 while afebrile), HR now controlled, continue --monitor closely Electrolyte and fluid disorders not elsewhere cudsaahprv29 DISPOSITION AND FOLLOW-UP Overview: 32 yo female from [place], [place]. Family involved with care, at bedside. 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 will start PO pain meds today 10/27. tolerating percocet, pain relatively well controlled. Hodgkin's disease with nodular dkcayppxa74 Overview: Oncology history (per Dr. 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 Hodgkin's disease, xovvcsafjpy01Vaginal uorftiro67/07/2016 Overview: --likely from thrombocytopenia. No menses in prior 8 months. 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 Premature njcfmqzeb12/07/2016Postmenopausal atrophic jygsltifz47/07/2016 Rgzdyqxxjfa38/07/2016documented as of this encounter (statuses as of 11/13/2022) [facility]2018 History of Past illness Narrative* ProblemNoted Date Diagnosed DateResolved DateMenorrhagia with regular cycle Overview: Added automatically from request for surgery [id number] History of pulmonary nzprddho44Neoplastic (malignant) related dzzsznz80Hidradenitis fyzcoyfgsgx71Vitamin D nsnbtyzjpb00HyperCKemiaElevated aldolase levelChronic pain of both kneesPain in joint, multiple sitesMyalgiaFatigue Malaise and keivgwp09Gastroesophageal reflux disease without mqbcqebwopm84Laryngitis02/23/2015 12/26/2015Drug/chem diab w neuro comp w diab autonm (poly)idfktdlirt51/10/2015 12/26/2015Papanicolaou smear of cervix with low grade squamous intraepithelial lesion (LGSIL)Pain in joint, ankle and foot09/27/2014 12/26/2015ASCUS favor khpbidyfc36Visit for gynecologic eccgbwgdjaj56Postmenopausal HRT (hormone replacement therapy) Overview: offered Gait phfgxtvfham26Weakness of both legs Sprain of ankle, leftPCP (pneumocystis jiroveci pneumonia) Acute respiratory failure with jgjdajsis89 Overview: Increased O2 requirement overnight (2L to 5L) - bronchoscopy with BAL/TBLB tomorrow 8 AM. - NPO from midnight - hold tonight dose of lovenox. Radiation yntvsqobxyt00 Overview: 40 mg prednisone daily Immunodeficiency with predominant T-cell defect, sqgwsvjrbic55 Urgency of bkvwnggfbam64Urinary kpbfzjjyv00 Arm pain, leftBack pain without /19/2014 12/26/2015Abnormal finding on nxtuqrb10Elevated sed rate Hyperpigmentation of skin Overview: --resolved --bilateral breast tissue and axilla --order mycolog cream --monitor Lkyozgec51 Overview: - c diff pending Mucositis (ulcerative) due to antineoplastic dkjpwyg02 Overview: --improved --oxy prn --mouth care measures. Wocyer86 Overview: --improved with protonix Elevated LFTs Overview: --increased AST ALT during chemo, resolved. Excess fluid sjrhty57 Overview: --diuresis as needed --continue to monitor volume status CINV (chemotherapy-induced nausea and vomiting) Overview: --Resolved --Ativan PRN (none used) Peripheral rreglrxzez82 Overview: --gabapentin 300mg TID with increased symptoms, bedtime dose of gabapentin increased to 600mg with improvement reported, continue DVT ofcfjieyzxy73 Overview: --platelet count decreasing, d/c heparin SQ --encourage ambulation Hxdnqysc25 Overview: --ambien PRN at HS, with relief, but with vivid dreams, ambien d/c --restoril at 30mg PRN at HS with relief, continue Chronic chest pain Overview: --now resolved --since Hodgkin lymphoma diagnosis per patient Hospital discharge follow-up Overview: --Patient will need to follow up with Dr. Unger after discharge Anjmgywhnts92 Overview: --patient taking atenolol 100mg BID at home, now BP running lower, decreased atenolol dose to 50mg BID with hypotension. --increase to 75mg BID, d/t tachycardia(HRs >110 while afebrile), HR now controlled, continue --monitor closely Electrolyte and fluid disorders not elsewhere gbvquxeaus18 DISPOSITION AND FOLLOW-UP Overview: 32 yo female from [place], [place]. Family involved with care, at bedside. 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 will start PO pain meds today 10/27. tolerating percocet, pain relatively well controlled. Hodgkin's disease with nodular Overview: Oncology history (per Dr. 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 Hodgkin's disease, zsothainvnp46Vaginal efoiffjo16/07/2016 Overview: --likely from thrombocytopenia. No menses in prior 8 months. 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 Premature /07/2016Postmenopausal atrophic zjeavcfai28/07/2016 Zhhdcnjfxmm29/07/2016documented as of this encounter (statuses as of 11/26/2022) [facility] History of Past illness Narrative* ProblemNoted Date Diagnosed DateResolved DateMenorrhagia with regular cycle Overview: Added automatically from request for surgery [id number] History of pulmonary sultnxaj46Neoplastic (malignant) related eekgchd44Hidradenitis hhctzrnjkyj85Vitamin D ccjntnaodt97HyperCKemiaElevated aldolase levelChronic pain of both kneesPain in joint, multiple sitesMyalgiaFatigue Malaise and qfxilts49Gastroesophageal reflux disease without xnlugdkbxzi35Laryngitis02/23/2015 12/26/2015Drug/chem diab w neuro comp w diab autonm (poly)vhkloeppfl09/10/2015 12/26/2015Papanicolaou smear of cervix with low grade squamous intraepithelial lesion (LGSIL)Pain in joint, ankle and foot09/27/2014 12/26/2015ASCUS favor dlqrtqeho92Visit for gynecologic vtgfibypdyk00Postmenopausal HRT (hormone replacement therapy) Overview: offered Gait chvxnldtvwg85Weakness of both legs Sprain of ankle, leftPCP (pneumocystis jiroveci pneumonia) Acute respiratory failure with hjkxeswbg57 Overview: Increased O2 requirement overnight (2L to 5L) - bronchoscopy with BAL/TBLB tomorrow 8 AM. - NPO from midnight - hold tonight dose of lovenox. Radiation rmhiqptvlvl61 Overview: 40 mg prednisone daily Immunodeficiency with predominant T-cell defect, kyvhlieuwin22 Urgency of apjjhgaqxod97Urinary hkblopiux28 Arm pain, leftBack pain without udwkhxhdt08/19/2014 12/26/2015Abnormal finding on hiqekgs62Elevated sed rate Hyperpigmentation of skin Overview: --resolved --bilateral breast tissue and axilla --order mycolog cream --monitor Xxpctezz96 Overview: - c diff pending Mucositis (ulcerative) due to antineoplastic ptehyar72 Overview: --improved --oxy prn --mouth care measures. Jmuyfu75 Overview: --improved with protonix Elevated LFTs Overview: --increased AST ALT during chemo, resolved. Excess fluid ygokfi98 Overview: --diuresis as needed --continue to monitor volume status CINV (chemotherapy-induced nausea and vomiting) Overview: --Resolved --Ativan PRN (none used) Peripheral sodnoaqefq39 Overview: --gabapentin 300mg TID with increased symptoms, bedtime dose of gabapentin increased to 600mg with improvement reported, continue DVT pljvgygsxzi62 Overview: --platelet count decreasing, d/c heparin SQ --encourage ambulation Zkfletwt60 Overview: --ambien PRN at HS, with relief, but with vivid dreams, ambien d/c --restoril at 30mg PRN at HS with relief, continue Chronic chest pain Overview: --now resolved --since Hodgkin lymphoma diagnosis per patient Hospital discharge follow-up Overview: --Patient will need to follow up with Dr. Unger after discharge Jutpjowawfg01 Overview: --patient taking atenolol 100mg BID at home, now BP running lower, decreased atenolol dose to 50mg BID with hypotension. --increase to 75mg BID, d/t tachycardia(HRs >110 while afebrile), HR now controlled, continue --monitor closely Electrolyte and fluid disorders not elsewhere ejnghnjgpd83 DISPOSITION AND FOLLOW-UP Overview: 32 yo female from [place], [place]. Family involved with care, at bedside. 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 will start PO pain meds today 10/27. tolerating percocet, pain relatively well controlled. Hodgkin's disease with nodular ambyorosm70 Overview: Oncology history (per Dr. 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 Hodgkin's disease, zancpqwxvfk31Vaginal usibbbjy05/07/2016 Overview: --likely from thrombocytopenia. No menses in prior 8 months. 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 Premature /07/2016Postmenopausal atrophic bwfptrwru47/07/2016 Vvwwblvmktl57/07/2016documented as of this encounter (statuses as of 12/04/2022) [facility] History of Past illness Narrative* ProblemNoted Date Diagnosed DateResolved DateMenorrhagia with regular cycle Overview: Added automatically from request for surgery [id number] History of pulmonary arcaikqq00Neoplastic (malignant) related elqlqxs45Hidradenitis diyqzxavnfi87Vitamin D hnksvafyor00HyperCKemiaElevated aldolase levelChronic pain of both kneesPain in joint, multiple sitesMyalgiaFatigue Malaise and zhsdqag77Gastroesophageal reflux disease without oqeimrabccr73Laryngitis02/23/2015 12/26/2015Drug/chem diab w neuro comp w diab autonm (poly)izgollyutb16/10/2015 12/26/2015Papanicolaou smear of cervix with low grade squamous intraepithelial lesion (LGSIL)Pain in joint, ankle and foot09/27/2014 12/26/2015ASCUS favor qambqxmzh30Visit for gynecologic leetxufsdmv70Postmenopausal HRT (hormone replacement therapy) Overview: offered Gait tyrxnjcftoq82Weakness of both legs Sprain of ankle, leftPCP (pneumocystis jiroveci pneumonia) Acute respiratory failure with sielfvobu84 Overview: Increased O2 requirement overnight (2L to 5L) - bronchoscopy with BAL/TBLB tomorrow 8 AM. - NPO from midnight - hold tonight dose of lovenox. Radiation kwznbcykgko32 Overview: 40 mg prednisone daily Immunodeficiency with predominant T-cell defect, jyekbgvvnnb58 Urgency of aowqebhxcxt85Urinary igpeufebj24 Arm pain, leftBack pain without ooabrtlhk94/19/2014 12/26/2015Abnormal finding on swveenm52Elevated sed rate Hyperpigmentation of skin Overview: --resolved --bilateral breast tissue and axilla --order mycolog cream --monitor Eikjvdxk68 Overview: - c diff pending Mucositis (ulcerative) due to antineoplastic dutccze10 Overview: --improved --oxy prn --mouth care measures. Muizzz12 Overview: --improved with protonix Elevated LFTs Overview: --increased AST ALT during chemo, resolved. Excess fluid Overview: --diuresis as needed --continue to monitor volume status CINV (chemotherapy-induced nausea and vomiting) Overview: --Resolved --Ativan PRN (none used) Peripheral avohuvqwhq41 Overview: --gabapentin 300mg TID with increased symptoms, bedtime dose of gabapentin increased to 600mg with improvement reported, continue DVT sqtyhnakrbh18 Overview: --platelet count decreasing, d/c heparin SQ --encourage ambulation Eeiapwle49 Overview: --ambien PRN at HS, with relief, but with vivid dreams, ambien d/c --restoril at 30mg PRN at HS with relief, continue Chronic chest pain Overview: --now resolved --since Hodgkin lymphoma diagnosis per patient Hospital discharge follow-up Overview: --Patient will need to follow up with Dr. Unger after discharge Koqqughhzek60 Overview: --patient taking atenolol 100mg BID at home, now BP running lower, decreased atenolol dose to 50mg BID with hypotension. --increase to 75mg BID, d/t tachycardia(HRs >110 while afebrile), HR now controlled, continue --monitor closely Electrolyte and fluid disorders not elsewhere cnopyexiat44 DISPOSITION AND FOLLOW-UP Overview: 32 yo female from [place], [place]. Family involved with care, at bedside. 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 will start PO pain meds today 10/27. tolerating percocet, pain relatively well controlled. Hodgkin's disease with nodular Overview: Oncology history (per Dr. 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 Hodgkin's disease, ncrtyngbknv56Vaginal peqnldoy98/07/2016 Overview: --likely from thrombocytopenia. No menses in prior 8 months. 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 Premature auarcnljd13/07/2016Postmenopausal atrophic rkdedynmb78/07/2016 Hnncvtixase20/07/2016documented as of this encounter (statuses as of 12/18/2022) [facility] History of Past illness Narrative* ProblemNoted Date Diagnosed DateResolved DateMenorrhagia with regular cycle Overview: Added automatically from request for surgery [id number] History of pulmonary frcmupog36Neoplastic (malignant) related jbigqme47Hidradenitis gchoszuecek72Vitamin D hzpuzdvshb58HyperCKemiaElevated aldolase levelChronic pain of both kneesPain in joint, multiple sitesMyalgiaFatigue Malaise and qiuaxqx27Gastroesophageal reflux disease without mmxkawvwiht75Laryngitis02/23/2015 12/26/2015Drug/chem diab w neuro comp w diab autonm (poly)mwvyqslaiv80/10/2015 12/26/2015Papanicolaou smear of cervix with low grade squamous intraepithelial lesion (LGSIL)Pain in joint, ankle and foot09/27/2014 12/26/2015ASCUS favor kbpxuuwtu22Visit for gynecologic rzkutaoxdik16Postmenopausal HRT (hormone replacement therapy) Overview: offered Gait klcirzbovof24Weakness of both legs Sprain of ankle, leftPCP (pneumocystis jiroveci pneumonia) Acute respiratory failure with vrqozmhxf44 Overview: Increased O2 requirement overnight (2L to 5L) - bronchoscopy with BAL/TBLB tomorrow 8 AM. - NPO from midnight - hold tonight dose of lovenox. Radiation ojdhklpwanp54 Overview: 40 mg prednisone daily Immunodeficiency with predominant T-cell defect, ngkxgiqcgpi84 Urgency of uixxngruitc16Urinary xgyokpbiu39 Arm pain, leftBack pain without yfrlpznvs67/19/2014 12/26/2015Abnormal finding on kxburdq81Elevated sed rate Hyperpigmentation of skin Overview: --resolved --bilateral breast tissue and axilla --order mycolog cream --monitor Psbarpzd83 Overview: - c diff pending Mucositis (ulcerative) due to antineoplastic Overview: --improved --oxy prn --mouth care measures. Ebbyrt62 Overview: --improved with protonix Elevated LFTs Overview: --increased AST ALT during chemo, resolved. Excess fluid zzdrpi37 Overview: --diuresis as needed --continue to monitor volume status CINV (chemotherapy-induced nausea and vomiting) Overview: --Resolved --Ativan PRN (none used) Peripheral piqyazmeli46 Overview: --gabapentin 300mg TID with increased symptoms, bedtime dose of gabapentin increased to 600mg with improvement reported, continue DVT yoxhlwoinzo39 Overview: --platelet count decreasing, d/c heparin SQ --encourage ambulation Vsmnwdyc38 Overview: --ambien PRN at HS, with relief, but with vivid dreams, ambien d/c --restoril at 30mg PRN at HS with relief, continue Chronic chest pain Overview: --now resolved --since Hodgkin lymphoma diagnosis per patient Hospital discharge follow-up Overview: --Patient will need to follow up with Dr. Unger after discharge Edygpleqwql94 Overview: --patient taking atenolol 100mg BID at home, now BP running lower, decreased atenolol dose to 50mg BID with hypotension. --increase to 75mg BID, d/t tachycardia(HRs >110 while afebrile), HR now controlled, continue --monitor closely Electrolyte and fluid disorders not elsewhere igdzmfnnkz09 DISPOSITION AND FOLLOW-UP Overview: 32 yo female from [place]. Family involved with care, at bedside. 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 will start PO pain meds today 10/27. tolerating percocet, pain relatively well controlled. Hodgkin's disease with nodular reghookkh72 Overview: Oncology history (per Dr. 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 Hodgkin's disease, bfybxurvasn63Vaginal ezomywdb34/07/2016 Overview: --likely from thrombocytopenia. No menses in prior 8 months. 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 Premature nynhvncue67/07/2016Postmenopausal atrophic atpbntbau25/07/2016 Iyidvirfqrl25/07/2016documented as of this encounter (statuses as of 12/31/2022) [facility] History of Past illness Narrative* ProblemNoted Date Diagnosed DateResolved DateMenorrhagia with regular cycle Overview: Added automatically from request for surgery [id number] History of pulmonary kmygxcaj33Neoplastic (malignant) related rocniud24Hidradenitis mvzbgnwdgnb52Vitamin D kugwpotlxa32HyperCKemiaElevated aldolase levelChronic pain of both kneesPain in joint, multiple sitesMyalgiaFatigue Malaise and pyrvivg79Gastroesophageal reflux disease without smwerztglmb78Laryngitis02/23/2015 12/26/2015Drug/chem diab w neuro comp w diab autonm (poly)kinegjyvyx62/10/2015 12/26/2015Papanicolaou smear of cervix with low grade squamous intraepithelial lesion (LGSIL)Pain in joint, ankle and foot09/27/2014 12/26/2015ASCUS favor zjxdqeicv98Visit for gynecologic pgsqztejamz58Postmenopausal HRT (hormone replacement therapy) Overview: offered Gait svrtfjzfshy75Weakness of both legs Sprain of ankle, left06/29/PCP (pneumocystis jiroveci pneumonia) Acute respiratory failure with pjuqyxoky45 Overview: Increased O2 requirement overnight (2L to 5L) - bronchoscopy with BAL/TBLB tomorrow 8 AM. - NPO from midnight - hold tonight dose of lovenox. Radiation hmfohltgyrv98 Overview: 40 mg prednisone daily Immunodeficiency with predominant T-cell defect, tjssfidfjoo05 Urgency of dsezpjjbofo16Urinary Arm pain, leftBack pain without zmxanuzkf53/19/2014 12/26/2015Abnormal finding on xgbtyfk78Elevated sed rate Hyperpigmentation of skin Overview: --resolved --bilateral breast tissue and axilla --order mycolog cream --monitor Crcffvqz78 Overview: - c diff pending Mucositis (ulcerative) due to antineoplastic ralfujf03 Overview: --improved --oxy prn --mouth care measures. Ultdyi90 Overview: --improved with protonix Elevated LFTs Overview: --increased AST ALT during chemo, resolved. Excess fluid scjgbe48 Overview: --diuresis as needed --continue to monitor volume status CINV (chemotherapy-induced nausea and vomiting) Overview: --Resolved --Ativan PRN (none used) Peripheral Overview: --gabapentin 300mg TID with increased symptoms, bedtime dose of gabapentin increased to 600mg with improvement reported, continue DVT qlxtlbnmasd30 Overview: --platelet count decreasing, d/c heparin SQ --encourage ambulation Beiaesks17 Overview: --ambien PRN at HS, with relief, but with vivid dreams, ambien d/c --restoril at 30mg PRN at HS with relief, continue Chronic chest pain Overview: --now resolved --since Hodgkin lymphoma diagnosis per patient Hospital discharge follow-up Overview: --Patient will need to follow up with Dr. Unger after discharge Dqfzgnwaazq65 Overview: --patient taking atenolol 100mg BID at home, now BP running lower, decreased atenolol dose to 50mg BID with hypotension. --increase to 75mg BID, d/t tachycardia(HRs >110 while afebrile), HR now controlled, continue --monitor closely Electrolyte and fluid disorders not elsewhere irfshavefd84 DISPOSITION AND FOLLOW-UP Overview: 32 yo female from [place], [place]. Family involved with care, at bedside. 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 will start PO pain meds today 10/27. tolerating percocet, pain relatively well controlled. Hodgkin's disease with nodular winlqgdzx88 Overview: Oncology history (per Dr. 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 Hodgkin's disease, uewhyossion69Vaginal krjgybou99/07/2016 Overview: --likely from thrombocytopenia. No menses in prior 8 months. 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 Premature ewhxjxcgm80/07/2016Postmenopausal atrophic /07/2016 Lvlsgwfiblh11/07/2016documented as of this encounter (statuses as of 01/03/2023) [facility] History of Past illness Narrative* ProblemNoted Date Diagnosed DateResolved DateMenorrhagia with regular cycle Overview: Added automatically from request for surgery [id number] History of pulmonary kisodusk95Neoplastic (malignant) related kdwxpen06Hidradenitis xgnratoesbk47Vitamin D rwozfmcueg83HyperCKemiaElevated aldolase levelChronic pain of both kneesPain in joint, multiple sitesMyalgiaFatigue Malaise and wxumfcw35/04/Gastroesophageal reflux disease without pgylvutormh99Laryngitis02/23/2015 12/26/2015Drug/chem diab w neuro comp w diab autonm (poly)wehyaqrxls84/10/2015 12/26/2015Papanicolaou smear of cervix with low grade squamous intraepithelial lesion (LGSIL)Pain in joint, ankle and foot09/27/2014 12/26/2015ASCUS favor bljkroduw29Visit for gynecologic vbnlltpfasa26Postmenopausal HRT (hormone replacement therapy) Overview: offered Gait ogtbdlisjmw45Weakness of both legs Sprain of ankle, leftPCP (pneumocystis jiroveci pneumonia) Acute respiratory failure with uunoqsfzs53 Overview: Increased O2 requirement overnight (2L to 5L) - bronchoscopy with BAL/TBLB tomorrow 8 AM. - NPO from midnight - hold tonight dose of lovenox. Radiation aelgxkrrbqf14 Overview: 40 mg prednisone daily Immunodeficiency with predominant T-cell defect, paggklzjovi31 Urgency of eokfzztgjtp12Urinary vsrxsbcti62 Arm pain, leftBack pain without itiktcryk26/19/2014 12/26/2015Abnormal finding on fnoltjv23Elevated sed rate Hyperpigmentation of skin Overview: --resolved --bilateral breast tissue and axilla --order mycolog cream --monitor Zmbjxmyc56 Overview: - c diff pending Mucositis (ulcerative) due to antineoplastic Overview: --improved --oxy prn --mouth care measures. Dbgtbh20 Overview: --improved with protonix Elevated LFTs Overview: --increased AST ALT during chemo, resolved. Excess fluid Overview: --diuresis as needed --continue to monitor volume status CINV (chemotherapy-induced nausea and vomiting) Overview: --Resolved --Ativan PRN (none used) Peripheral buqsjmalzl52 Overview: --gabapentin 300mg TID with increased symptoms, bedtime dose of gabapentin increased to 600mg with improvement reported, continue DVT xjrtcemujgg00 Overview: --platelet count decreasing, d/c heparin SQ --encourage ambulation Vymfklkh64 Overview: --ambien PRN at HS, with relief, but with vivid dreams, ambien d/c --restoril at 30mg PRN at HS with relief, continue Chronic chest pain Overview: --now resolved --since Hodgkin lymphoma diagnosis per patient Hospital discharge follow-up Overview: --Patient will need to follow up with Dr. Unger after discharge Mmkomclxgue04 Overview: --patient taking atenolol 100mg BID at home, now BP running lower, decreased atenolol dose to 50mg BID with hypotension. --increase to 75mg BID, d/t tachycardia(HRs >110 while afebrile), HR now controlled, continue --monitor closely Electrolyte and fluid disorders not elsewhere huxymedlcm65 DISPOSITION AND FOLLOW-UP Overview: 32 yo female from [place], [place]. Family involved with care, at bedside. 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 will start PO pain meds today 10/27. tolerating percocet, pain relatively well controlled. Hodgkin's disease with nodular grnkyknwq37 Overview: Oncology history (per Dr. 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 Hodgkin's disease, cfaejpogipr05Vaginal adcmmehz49/07/2016 Overview: --likely from thrombocytopenia. No menses in prior 8 months. 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 Premature bogxdbmvy39/07/2016Postmenopausal atrophic liudiuuqt45/07/2016 Bqczejzqown34/07/2016documented as of this encounter (statuses as of 01/03/2023) [facility] History of Past illness Narrative* ProblemNoted Date Diagnosed DateResolved DateMenorrhagia with regular cycle Overview: Added automatically from request for surgery [id number] History of pulmonary wmbifwxz97Neoplastic (malignant) related zwueblv99Hidradenitis oozivtxtkoy93Vitamin D nyyqyhmsak32HyperCKemiaElevated aldolase levelChronic pain of both kneesPain in joint, multiple sitesMyalgiaFatigue Malaise and eilhfvw14Gastroesophageal reflux disease without hblgyaepfpl61Laryngitis02/23/2015 12/26/2015Drug/chem diab w neuro comp w diab autonm (poly)irsfuakrox02/10/2015 12/26/2015Papanicolaou smear of cervix with low grade squamous intraepithelial lesion (LGSIL)Pain in joint, ankle and foot09/27/2014 12/26/2015ASCUS favor tqflipmep48Visit for gynecologic aszxwvtogwj56Postmenopausal HRT (hormone replacement therapy) Overview: offered Gait eoubefcelpu30Weakness of both legs Sprain of ankle, leftPCP (pneumocystis jiroveci pneumonia) Acute respiratory failure with Overview: Increased O2 requirement overnight (2L to 5L) - bronchoscopy with BAL/TBLB tomorrow 8 AM. - NPO from midnight - hold tonight dose of lovenox. Radiation Overview: 40 mg prednisone daily Immunodeficiency with predominant T-cell defect, wwgrpiplhly04 Urgency of symipaomtor74Urinary gbeeloklg10 Arm pain, leftBack pain without elwsoaqab65/19/2014 12/26/2015Abnormal finding on fdrktvj28Elevated sed rate Hyperpigmentation of skin Overview: --resolved --bilateral breast tissue and axilla --order mycolog cream --monitor Qpoohzbz68 Overview: - c diff pending Mucositis (ulcerative) due to antineoplastic bglguyw62 Overview: --improved --oxy prn --mouth care measures. Ptcjbm00 Overview: --improved with protonix Elevated LFTs Overview: --increased AST ALT during chemo, resolved. Excess fluid balxvi97 Overview: --diuresis as needed --continue to monitor volume status CINV (chemotherapy-induced nausea and vomiting) Overview: --Resolved --Ativan PRN (none used) Peripheral ufoxlfhhsl91 Overview: --gabapentin 300mg TID with increased symptoms, bedtime dose of gabapentin increased to 600mg with improvement reported, continue DVT jrgnneobvue62 Overview: --platelet count decreasing, d/c heparin SQ --encourage ambulation Osysvsvz93 Overview: --ambien PRN at HS, with relief, but with vivid dreams, ambien d/c --restoril at 30mg PRN at HS with relief, continue Chronic chest pain Overview: --now resolved --since Hodgkin lymphoma diagnosis per patient Hospital discharge follow-up Overview: --Patient will need to follow up with Dr. Unger after discharge Dqwstpvttez45 Overview: --patient taking atenolol 100mg BID at home, now BP running lower, decreased atenolol dose to 50mg BID with hypotension. --increase to 75mg BID, d/t tachycardia(HRs >110 while afebrile), HR now controlled, continue --monitor closely Electrolyte and fluid disorders not elsewhere imiqueczek83 DISPOSITION AND FOLLOW-UP Overview: 32 yo female from [place], [place]. Family involved with care, at bedside. 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 will start PO pain meds today 10/27. tolerating percocet, pain relatively well controlled. Hodgkin's disease with nodular Overview: Oncology history (per Dr. 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 Hodgkin's disease, blaammrlocg98Vaginal ayemktum33/07/2016 Overview: --likely from thrombocytopenia. No menses in prior 8 months. 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 Premature oetmkizoh75/07/2016Postmenopausal atrophic vkrizzmco15/07/2016 Abdisqigrln58/07/2016documented as of this encounter (statuses as of 01/07/2023) [facility] History of Past illness Narrative* ProblemNoted Date Diagnosed DateResolved DateMenorrhagia with regular cycle Overview: Added automatically from request for surgery [id number] History of pulmonary snrxwtvu70Neoplastic (malignant) related acaibyp21Hidradenitis zebnbqlbysk40Vitamin D ukqdctohca80HyperCKemiaElevated aldolase levelChronic pain of both kneesPain in joint, multiple sitesMyalgiaFatigue Malaise and ujpayee47Gastroesophageal reflux disease without yidtlulmuzh24Laryngitis02/23/2015 12/26/2015Drug/chem diab w neuro comp w diab autonm (poly)tkrkkodybe63/10/2015 12/26/2015Papanicolaou smear of cervix with low grade squamous intraepithelial lesion (LGSIL)Pain in joint, ankle and foot09/27/2014 12/26/2015ASCUS favor kwtnkbcar67Visit for gynecologic odzunrqhukl79Postmenopausal HRT (hormone replacement therapy) Overview: offered Gait yutsyxufytg32Weakness of both legs Sprain of ankle, leftPCP (pneumocystis jiroveci pneumonia) Acute respiratory failure with ofjrwfbne13 Overview: Increased O2 requirement overnight (2L to 5L) - bronchoscopy with BAL/TBLB tomorrow 8 AM. - NPO from midnight - hold tonight dose of lovenox. Radiation odgzlvgfnox28 Overview: 40 mg prednisone daily Immunodeficiency with predominant T-cell defect, xwiuhzkpbuy45 Urgency of yfmroqwqzaj93Urinary ijefmimnp23 Arm pain, leftBack pain without /19/2014 12/26/2015Abnormal finding on alscqir90Elevated sed rate Hyperpigmentation of skin Overview: --resolved --bilateral breast tissue and axilla --order mycolog cream --monitor Aatyqglf84 Overview: - c diff pending Mucositis (ulcerative) due to antineoplastic ontbnir59 Overview: --improved --oxy prn --mouth care measures. Nhvmuo66 Overview: --improved with protonix Elevated LFTs Overview: --increased AST ALT during chemo, resolved. Excess fluid wzoobq00 Overview: --diuresis as needed --continue to monitor volume status CINV (chemotherapy-induced nausea and vomiting) Overview: --Resolved --Ativan PRN (none used) Peripheral ehzkmgfqdo48 Overview: --gabapentin 300mg TID with increased symptoms, bedtime dose of gabapentin increased to 600mg with improvement reported, continue DVT wuxzvhabxsy59 Overview: --platelet count decreasing, d/c heparin SQ --encourage ambulation Ognynxzz51 Overview: --ambien PRN at HS, with relief, but with vivid dreams, ambien d/c --restoril at 30mg PRN at HS with relief, continue Chronic chest pain Overview: --now resolved --since Hodgkin lymphoma diagnosis per patient Hospital discharge follow-up Overview: --Patient will need to follow up with Dr. Unger after discharge Fsylsczaktl54 Overview: --patient taking atenolol 100mg BID at home, now BP running lower, decreased atenolol dose to 50mg BID with hypotension. --increase to 75mg BID, d/t tachycardia(HRs >110 while afebrile), HR now controlled, continue --monitor closely Electrolyte and fluid disorders not elsewhere yrtlddwbbq22 DISPOSITION AND FOLLOW-UP Overview: 32 yo female from [place], [place]. Family involved with care, at bedside. 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 will start PO pain meds today 10/27. tolerating percocet, pain relatively well controlled. Hodgkin's disease with nodular nsvstdney81 Overview: Oncology history (per Dr. 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 Hodgkin's disease, eauvzpxofdw46Vaginal beyolbjh73/07/2016 Overview: --likely from thrombocytopenia. No menses in prior 8 months. 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 Nodular sclerosing Hodgkin's lymphoma, 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) Polyneuropathy due to drugs [facility] Diagnosis Encounter for palliative care- Primary 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) Cancer related pain Neoplasm related pain (acute) (chronic) Chemotherapy-induced neuropathy (HCC) Polyneuropathy due to drugs Muscle cramps Cramp of limb Anxiety Anxiety state, unspecified [facility] Diagnosis 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 Nodular sclerosing Hodgkin's lymphoma, 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) Polyneuropathy due to drugs [facility] Diagnosis Sinus congestion- Primary Other diseases of nasal cavity and sinuses Nodular sclerosing Hodgkin's lymphoma, unspecified body region (HCC) [facility] Diagnosis Muscle cramps Cramp of limb Nodular sclerosing Hodgkin's lymphoma, unspecified body region (HCC) [facility] Diagnosis Hodgkin lymphoma, unspecified Hodgkin lymphoma type, unspecified body region (HCC)- Primary 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) [facility] Diagnosis 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 Encounter for antineoplastic immunotherapy [facility] Diagnosis 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 Cancer related pain Neoplasm related pain (acute) (chronic) Encounter for palliative care [facility] Diagnosis 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) Nausea Nausea alone [facility] Diagnosis Simple chronic bronchitis (HCC)- Primary Simple chronic bronchitis Restrictive lung disease Other diseases of lung, not elsewhere classified [facility] Diagnosis 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 [facility] Diagnosis 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) Nausea Nausea alone [facility] Diagnosis Muscle cramps Cramp [...] palliative care [facility] Diagnosis 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 [facility] Diagnosis Hidradenitis suppurativa- Primary Hidradenitis Painful skin lesion documented in this encounter [facility] note* Diagnosis Muscle cramps Cramp of limb Nodular sclerosis classical Hodgkin lymphoma (HCC) Hodgkin's disease, nodular sclerosis, unspecified site, extranodal and solid organ sites documented in this encounter [facility] note* Diagnosis 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 Cancer related pain Neoplasm related pain (acute) (chronic) Encounter for palliative care documented in this encounter [facility] Other Evaluation note* Diagnosis 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 documented in this encounter [facility] note* Diagnosis 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 documented in this encounter [facility] note* Diagnosis Muscle cramps Cramp of limb Nodular sclerosis classical Hodgkin lymphoma (HCC) Hodgkin's disease, nodular sclerosis, unspecified site, extranodal and solid organ sites documented in this encounter [facility] note* Diagnosis Muscle cramps Cramp of limb Nodular sclerosing Hodgkin's lymphoma, unspecified body region (HCC) documented in this encounter [facility] note* Diagnosis 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) Nausea Nausea alone documented in this encounter [facility] note* Diagnosis Hidradenitis suppurativa- Primary Hidradenitis Painful skin lesion Dermatofibroma of left knee [facility] Diagnosis 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 [facility] Diagnosis Nodular sclerosing Hodgkin's lymphoma, 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) Polyneuropathy due to drugs documented in this encounter [facility] note* Diagnosis Simple chronic bronchitis (HCC) Simple chronic bronchitis documented in this encounter [facility] note* Diagnosis Muscle cramps Cramp of [...] region (HCC)- Primary documented in this encounter [facility] [...] Primary [facility] Diagnosis Acne vulgaris- Primary Other acne [facility] Diagnosis Nodular sclerosing Hodgkin's lymphoma, 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) Polyneuropathy due to drugs [facility] Diagnosis 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 Encounter for antineoplastic immunotherapy Encounter for long-term (current) use of medications Encounter for long-term (current) use of other medications [facility] Diagnosis Nodular sclerosing Hodgkin's lymphoma, unspecified body region (HCC)- Primary BAEZ (dyspnea on exertion) Other dyspnea and respiratory abnormality Chronic cough Cough Chest tightness Other chest pain [facility] Diagnosis Muscle cramps Cramp of limb Nodular sclerosing Hodgkin's lymphoma, unspecified body region (HCC) [facility] Diagnosis 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 Cancer related pain Neoplasm related pain (acute) (chronic) Encounter for palliative care [facility] Diagnosis 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 [facility] Diagnosis Nodular sclerosing Hodgkin's lymphoma, 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) Polyneuropathy due to drugs [facility] Diagnosis Muscle cramps Cramp of limb Nodular sclerosis classical Hodgkin lymphoma (HCC) Hodgkin's disease, nodular sclerosis, unspecified site, extranodal and solid organ sites [facility] Diagnosis Encounter for palliative care- Primary Opioid use agreement exists Encounters for other specified administrative purpose Anxiety Anxiety state, unspecified Cancer related pain Neoplasm related pain (acute) (chronic) 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) Muscle cramps Cramp of limb [facility] Diagnosis Nodular sclerosis Hodgkin lymphoma [...] (HCC)- Primary [facility] Diagnosis 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 [facility] Diagnosis Muscle cramps Cramp of limb Nodular sclerosing Hodgkin's lymphoma, 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) Polyneuropathy due to drugs [facility] Diagnosis Encounter for palliative care- Primary 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 Cancer related pain Neoplasm related pain (acute) (chronic) Muscle cramps Cramp of limb Opioid use agreement exists Encounters for other specified administrative purpose [facility] Diagnosis 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 documented in this encounter [facility]* Diagnosis Nodular sclerosing Hodgkin's lymphoma, 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) Polyneuropathy due to drugs documented in this encounter [facility]* Diagnosis NO SHOW- Primary documented in this encounter [facility]* Diagnosis 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 Uterine leiomyoma, unspecified location [facility] Diagnosis Muscle cramps Cramp of limb Nodular sclerosis classical Hodgkin lymphoma (HCC) Hodgkin's disease, nodular sclerosis, unspecified site, extranodal and solid organ sites 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 Cancer related pain Neoplasm related pain (acute) (chronic) Encounter for palliative care documented in this [facility] Diagnosis Dyspnea on exertion- Primary Other dyspnea and respiratory abnormality documented in this [facility]* Diagnosis 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 Cancer related pain Neoplasm related pain (acute) (chronic) Encounter for palliative care documented in this [facility] Diagnosis Nodular sclerosing Hodgkin's lymphoma, unspecified body region (HCC)- Primary documented in this encounter [facility]* Diagnosis Palliative care by specialist- Primary Opioid use agreement exists Encounters for other specified administrative purpose Cancer related pain Neoplasm related pain (acute) (chronic) 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) Muscle cramps Cramp of [facility] Nodular sclerosing Hodgkin's lymphoma, 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) Polyneuropathy due to drugs [facility] Chronic cough- Primary Cough Productive cough Cough Dyspnea on exertion Other dyspnea and respiratory abnormality Opacity of lung on imaging study [facility] Diagnosis Bronchitis- Primary Bronchitis, not specified as acute or chronic Chronic cough Cough [facility] Diagnosis Muscle cramps Cramp of limb Nodular sclerosing Hodgkin's lymphoma, unspecified body region (HCC) [facility] Diagnosis Muscle cramps Cramp of limb Nodular sclerosing Hodgkin's lymphoma, unspecified body region (HCC) [facility] Diagnosis 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 Cancer related pain Neoplasm related pain (acute) (chronic) Encounter for palliative care [facility] Diagnosis 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 [facility] Diagnosis 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 [facility] Diagnosis Nodular sclerosing Hodgkin's lymphoma, 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) Polyneuropathy due to drugs [facility] Diagnosis Nodular sclerosing Hodgkin's lymphoma, [...] pulmonary embolism [facility] Diagnosis Acute cough [facility] this [facility]* Diagnosis Muscle cramps Cramp of limb Nodular sclerosis classical Hodgkin lymphoma (HCC) Hodgkin's disease, nodular sclerosis, unspecified site, extranodal and solid organ sites documented in this encounter [facility]* Diagnosis Muscle cramps Cramp of limb Nodular sclerosing Hodgkin's lymphoma, unspecified body region (HCC) documented in this encounter [facility]* Diagnosis 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 Cancer related pain Neoplasm related pain (acute) (chronic) Encounter for palliative care documented in this encounter [facility]* Diagnosis Nodular sclerosing Hodgkin's lymphoma, 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) Polyneuropathy due to drugs documented in this encounter [facility]* Diagnosis Nodular sclerosing Hodgkin's lymphoma, 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) Polyneuropathy due to drugs [facility] Diagnosis Hidradenitis suppurativa- Primary Hidradenitis Painful skin lesion documented in this encounter [facility]* Diagnosis Palliative care by specialist- Primary Nodular sclerosing Hodgkin's lymphoma, unspecified body region (HCC) Cancer related pain Neoplasm related pain (acute) (chronic) Opioid use agreement exists Encounters for other specified administrative purpose Muscle cramps Cramp of limb documented in this encounter [facility]* Diagnosis 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) Nausea Nausea alone documented in this encounter [facility]* Diagnosis 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 Cancer related pain Neoplasm related pain (acute) (chronic) Encounter for palliative care documented in this encounter [facility]* Diagnosis Nodular sclerosing Hodgkin's lymphoma, 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) Polyneuropathy due to drugs documented in this encounter [facility]* Diagnosis History of pulmonary embolism Personal history of pulmonary embolism documented [facility] this [facility]* Diagnosis Muscle cramps Cramp of limb Nodular sclerosing Hodgkin's lymphoma, unspecified body region (HCC) documented in this encounter [facility]* Diagnosis Nodular sclerosis Hodgkin lymphoma [...] hypothyroidism Unspecified hypothyroidism documented [facility] this [facility]* Diagnosis Muscle cramps Cramp of limb Nodular sclerosing Hodgkin's lymphoma, 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 Cancer related pain Neoplasm related pain (acute) (chronic) Encounter for palliative care documented in this encounter [facility]* Diagnosis 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 documented in this encounter [facility] noteNo assessment information availableSelect [facility], [facility] Work Phone: Evaluation note* Diagnosis Chronic cough Cough documented in this encounter [facility]* Diagnosis Bronchitis Bronchitis, not specified as acute or chronic [facility] Diagnosis Restrictive lung disease- Primary Other diseases of lung, not elsewhere classified Chronic cough Cough Post-nasal drip Postnasal drip Hoarseness Dysphonia Dysphagia, unspecified type History of pulmonary embolism Personal history of pulmonary embolism documented in this encounter [facility]* Diagnosis Bronchitis, not specified as acute or chronic- Primary Chronic cough Cough documented in this encounter [facility]* Diagnosis COVID-19- Primary documented in this encounter [facility]* Diagnosis COVID-19 documented in this encounter [facility]* Diagnosis 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 documented in this encounter [facility]* Diagnosis Nodular sclerosis Hodgkin lymphoma [...] [facility] Diagnosis Influenza with pneumonia- Primary Restrictive [...] Unspecified pleural effusion documented in this encounter [facility]* Diagnosis Pleural effusion, left- Primary Unspecified pleural effusion Pulmonary hypertension (HCC) Other chronic pulmonary heart diseases documented in this encounter [facility]* Diagnosis Restrictive lung disease- Primary Other diseases of lung, not elsewhere classified History of pulmonary embolism Personal history of pulmonary embolism 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) Bronchiectasis without complication (HCC) Bronchiectasis without acute exacerbation Simple chronic bronchitis (HCC) Simple chronic bronchitis documented in this encounter [facility]* Diagnosis Dysphagia, unspecified type- Primary documented in this encounter [facility]* Diagnosis Dysphagia, unspecified type documented in this encounter [facility]* Diagnosis Encounter for palliative care- Primary Muscle cramps Cramp of limb Nodular sclerosing Hodgkin's lymphoma, unspecified body region (HCC) Arthritis pain Arthropathy, unspecified, site unspecified 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 Cancer related pain Neoplasm related pain (acute) (chronic) documented in this encounter [facility]* Diagnosis Dysphagia, unspecified type Gastroesophageal reflux disease, unspecified whether esophagitis present documented in this encounter [facility]* Diagnosis Pain- Primary Generalized pain documented in this encounter [facility]* Diagnosis Muscle cramps Cramp of limb Nodular sclerosing Hodgkin's lymphoma, 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 Cancer related pain Neoplasm related pain (acute) (chronic) Encounter for palliative care documented in this encounter [facility]* Diagnosis 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 Restrictive lung disease Other diseases of lung, not elsewhere classified Anxiety and depression Dysthymic disorder documented in this encounter [facility]* Diagnosis Pneumonia due to infectious organism, unspecified laterality, unspecified part of lung- Primary Pulmonary hypertension (HCC) Other chronic pulmonary heart diseases Hospital discharge follow-up Other follow-up examination documented in this encounter [facility]* Diagnosis Muscle cramps- Primary Cramp of limb Nodular sclerosing Hodgkin's lymphoma, 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 Encounter for palliative care Psoriatic arthritis (HCC) Psoriatic arthropathy Arthritis pain Arthropathy, unspecified, site unspecified Chronic nonmalignant pain Opioid use agreement exists Encounters for other specified administrative purpose documented in this encounter [facility]* Diagnosis Dyspnea on exertion Other dyspnea and respiratory abnormality documented in this encounter [facility] note* Diagnosis Dyspnea on exertion Other dyspnea and respiratory abnormality Bronchitis Bronchitis, not specified as acute or chronic [facility]* Diagnosis 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 Cancer related pain Neoplasm related pain (acute) (chronic) Encounter for palliative care [facility]* Diagnosis Tendinitis, de Quervain's- Primary Radial styloid tenosynovitis documented in this encounter [facility] note* Diagnosis Dysphagia, unspecified type Hoarseness Dysphonia LPRD (laryngopharyngeal reflux disease) Other diseases of larynx [facility]* Diagnosis Encounter for palliative care- Primary Muscle cramps Cramp of limb Nodular sclerosing Hodgkin's lymphoma, unspecified body region (HCC) Opioid use agreement exists Encounters for other specified administrative purpose Chronic nonmalignant pain 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) Psoriatic arthritis (HCC) Psoriatic arthropathy documented in this encounter [facility] note* Diagnosis Muscle cramps Cramp of limb Nodular sclerosis classical Hodgkin lymphoma (HCC) Hodgkin's disease, nodular sclerosis, unspecified site, extranodal and solid organ sites documented in this encounter [facility]* Diagnosis Muscle cramps Cramp of limb Nodular sclerosing Hodgkin's lymphoma, 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 Cancer related pain Neoplasm related pain (acute) (chronic) Encounter for palliative care documented in this encounter [facility] note* Diagnosis Polyarthralgia- Primary Pain in joint, multiple sites Psoriasis Other psoriasis Polyarthralgia Pain in joint, multiple sites [facility] Diagnosis Polyarthralgia Pain in joint, multiple sites [facility] Diagnosis Pulmonary hypertension (HCC)- Primary Other chronic pulmonary heart diseases [facility]* Diagnosis Encounter for palliative care- Primary 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 Cancer related pain Neoplasm related pain (acute) (chronic) Chronic pain syndrome [facility] Diagnosis 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) [facility] Diagnosis 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 [facility] Diagnosis Nodular sclerosing Hodgkin's lymphoma, unspecified body region (HCC) [facility] Diagnosis 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 Other pulmonary embolism without acute cor pulmonale, unspecified chronicity (HCC) Chemotherapy-induced neuropathy (HCC) Polyneuropathy due to drugs [facility] Diagnosis Nodular sclerosing Hodgkin's lymphoma, unspecified body region (HCC) [facility] Diagnosis Nodular sclerosing Hodgkin's lymphoma, 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) [facility] Diagnosis Palliative care by specialist- Primary 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 Opioid use agreement exists Encounters for other specified administrative purpose Chronic pain syndrome [facility] Diagnosis Hodgkin lymphoma, unspecified Hodgkin lymphoma type, unspecified body region (HCC) 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) Drug toxicity Nonspecific abnormal toxicological findings Malaise and fatigue Other malaise and fatigue documented [facility] Diagnosis Hodgkin lymphoma, unspecified Hodgkin lymphoma type, unspecified body region (HCC) documented in this encounter [facility]* Diagnosis Pneumonia due to infectious organism, unspecified laterality, unspecified part of lung- Primary Bronchiectasis without complication (HCC) Bronchiectasis without acute exacerbation Restrictive lung disease Other diseases of lung, not elsewhere classified Oropharyngeal dysphagia Dysphagia, oropharyngeal phase Voice impairment Voice and resonance disorder, unspecified Pneumonia due to infectious organism, unspecified laterality, unspecified part of lung [facility]* Diagnosis Pneumonia of right upper lobe due to Streptococcus pneumoniae ([facility]/HCC)- Primary Recurrent sinus infections Unspecified sinusitis (chronic) documented in this encounter [facility]* Diagnosis Pneumonia due to infectious organism, unspecified laterality, unspecified part of lung documented in this encounter [facility]* Diagnosis Multiple subsegmental pulmonary emboli without acute cor pulmonale (CMS/HCC)- Primary documented in this encounter [facility]* Diagnosis Major depressive disorder, single episode, mild (HCC) ([facility])- Primary Major depressive disorder, single episode, mild Anxiety Anxiety state, unspecified Primary insomnia Persistent disorder of initiating or maintaining sleep Restrictive lung disease Other diseases of lung, not elsewhere classified Mild intermittent asthma, unspecified whether complicated (CMS/HCC) Acquired hypothyroidism ([facility]/HCC) Unspecified hypothyroidism Nodular sclerosing Hodgkin's lymphoma, unspecified body region (CMS/HCC) Neuropathy Mononeuritis of unspecified site Daily headache documented in this encounter [facility]* Diagnosis Chronic rhinitis- Primary Recurrent sinus infections Unspecified sinusitis (chronic) documented in this encounter [facility]* Diagnosis Muscle cramps Cramp of limb Nodular sclerosing Hodgkin's lymphoma, unspecified body region (HCC) documented in this encounter [facility]* Diagnosis 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) documented in this encounter [facility]* Diagnosis 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) Opioid use agreement exists Encounters for other specified administrative purpose Chronic pain syndrome Palliative care by specialist documented in this [facility]* Diagnosis Acute hypoxic respiratory failure (HCC)- Primary Pneumonia due to infectious organism, unspecified laterality, unspecified part of lung Restrictive lung disease Other diseases of lung, not elsewhere classified Bronchiectasis without complication (HCC) Bronchiectasis without acute exacerbation [facility]* Diagnosis Acute hypoxic respiratory failure (HCC)- Primary Bronchiectasis without complication (HCC) Bronchiectasis without acute exacerbation Restrictive lung disease Other diseases of lung, not elsewhere classified [facility]* Diagnosis Primary insomnia Persistent disorder of initiating or maintaining sleep documented in this encounter [facility] note* Diagnosis 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) Anxiety and depression Dysthymic disorder [facility]* Diagnosis Palliative care by specialist- Primary Chronic pain syndrome Opioid use agreement exists Encounters for other specified administrative purpose 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 [facility]* Diagnosis Other acute pulmonary embolism, unspecified whether acute cor pulmonale present (HCC)- Primary Pleural effusion, left Unspecified pleural effusion Pulmonary hypertension (HCC) Other chronic pulmonary heart diseases [facility]* Diagnosis Pleural effusion, left Unspecified pleural effusion [facility]* Diagnosis Bronchiectasis without complication (HCC)- Primary Bronchiectasis without acute exacerbation [facility]* Diagnosis Hypoxia- Primary Hypoxemia documented in [facility]* Diagnosis Other secondary pulmonary hypertension (HCC)- Primary [facility] Diagnosis Restrictive lung disease- Primary [...] heart diseases documented [facility]* Diagnosis Muscle cramps Cramp of limb Nodular sclerosing Hodgkin's lymphoma, unspecified body region (HCC) documented [facility] this [facility] Diagnosis 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) Opioid use agreement exists Encounters for other specified administrative purpose Chronic pain syndrome [facility]iative care by [facility] Diagnosis Acute hypoxic respiratory failure (HCC) Bronchiectasis without complication (HCC) Bronchiectasis without acute exacerbation Restrictive lung disease Other diseases of lung, not elsewhere classified [facility] this encounter [facility] Diagnosis Acute hypoxic respiratory failure (HCC) [facility] Diagnosis Other secondary pulmonary hypertension (HCC) documented in this [facility] Diagnosis Pulmonary hypertension (HCC)- Primary Other chronic pulmonary heart diseases Bronchiectasis without complication (HCC) Bronchiectasis without acute exacerbation Restrictive lung disease Other diseases of lung, not elsewhere classified 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) Other pulmonary embolism and infarction Moderate mitral regurgitation Mitral valve disorders [facility] this [facility] Diagnosis Pneumonia due to infectious organism, unspecified laterality, unspecified part of lung- Primary Acute respiratory failure, unspecified whether with hypoxia or hypercapnia (CMS/HCC) Restrictive lung disease Other diseases of lung, not elsewhere classified documented in this encounter [facility]* Diagnosis Anxiety Anxiety state, unspecified documented in this encounter [facility]* Diagnosis Anxiety Anxiety state, unspecified documented in this encounter [facility]* Diagnosis Anxiety Anxiety state, unspecified documented in this encounter [facility]* Diagnosis 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) Opioid use agreement exists Encounters for other specified administrative purpose Chronic pain syndrome Palliative care by specialist Pulmonary HTN (HCC) Other chronic pulmonary heart diseases [facility] this [facility] Diagnosis Pneumonia of right upper lobe due to Streptococcus pneumoniae (CMS/HCC)- Primary Recurrent sinus infections Unspecified sinusitis (chronic) [...] diseases [facility] this [facility] Diagnosis 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) Opioid use agreement exists Encounters for other specified administrative purpose Chronic pain syndrome Palliative care by specialist Pulmonary HTN (HCC) Other chronic pulmonary heart diseases [facility] Diagnosis Asthma, unspecified asthma severity, unspecified whether complicated, unspecified whether persistent ([facility]/HCC)- Primary Restrictive lung disease Other diseases of lung, not elsewhere classified Major depressive disorder, single episode, mild (HCC) (CMS/HCC) Major depressive disorder, single episode, mild Anxiety Anxiety state, unspecified Primary insomnia Persistent disorder of initiating or maintaining sleep Neuropathy Mononeuritis of unspecified site Pulmonary hypertension (CMS/HCC) Other chronic pulmonary heart diseases Nodular sclerosis Hodgkin lymphoma, unspecified site (CMS/HCC) documented in this encounter [facility]* Diagnosis Nerve pain Unspecified neuralgia, neuritis, and radiculitis documented in this encounter [facility]* Diagnosis 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 documented in this encounter [facility]* Diagnosis Muscle cramps Cramp of limb Nodular sclerosing Hodgkin's lymphoma, unspecified body region ([facility]) documented in this encounter [facility]* Diagnosis Pneumonia of right upper lobe due to Streptococcus pneumoniae ([facility])- Primary Chronic rhinitis documented in this encounter [facility]* Diagnosis Dermatitis- Primary Contact dermatitis [...] disorder with anxiety [facility] Diagnosis Subacute cough Cough documented in this encounter [facility]* Diagnosis 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 Restrictive lung disease Other diseases of lung, not elsewhere classified Subacute cough Cough Subacute cough Cough documented in this encounter [facility]* Diagnosis Pleural effusion- Primary Unspecified pleural effusion documented in this encounter [facility]* Diagnosis Pleural effusion Unspecified pleural effusion documented in this encounter [facility]* Diagnosis Anxiety Anxiety state, unspecified documented in this encounter [facility]* Diagnosis Pleural effusion- Primary Unspecified pleural effusion Bronchiectasis without complication (HCC) Bronchiectasis without acute exacerbation Restrictive lung disease Other diseases of lung, not elsewhere classified Chronic respiratory failure with hypoxia (HCC) Chronic respiratory failure Pulmonary hypertension (HCC) Other chronic pulmonary heart diseases documented [facility] this encounter [facility]* Diagnosis BRIAN (obstructive sleep apnea)- Primary Obstructive sleep apnea (adult) (pediatric) documented in this encounter [facility]* Diagnosis Asthma, unspecified asthma severity, unspecified whether complicated, unspecified whether persistent (CMS/HCC)- Primary [facility] Diagnosis Asthma, unspecified asthma severity, [...] tissues of limb [facility] Diagnosis Simple chronic bronchitis (HCC)- Primary Simple chronic bronchitis Bronchiectasis without complication (HCC) Bronchiectasis without acute exacerbation Chronic respiratory failure with hypoxia (HCC) Chronic respiratory failure documented in this encounter [facility]* Diagnosis Primary insomnia Persistent disorder of initiating or maintaining sleep documented in this encounter [facility]* Diagnosis Anxiety Anxiety state, unspecified Major depressive disorder, single episode, mild (HCC) (CMS/HCC) Major depressive disorder, single episode, mild Neuropathy Mononeuritis of unspecified site [facility] Diagnosis 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) Opioid use agreement exists Encounters for other specified administrative purpose Chronic pain syndrome Palliative care by specialist [facility] this encounter [facility] Diagnosis Palliative care by specialist- Primary Opioid use agreement exists Encounters for other specified administrative purpose 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) Chronic pain syndrome 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 NSTEMI (non-ST elevated myocardial infarction) (HCC) Acute myocardial infarction, subendocardial infarction, episode of care unspecified 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 documented in this [facility]* Diagnosis NSTEMI (non-ST elevated myocardial infarction) ([facility])- Primary Acute myocardial infarction, subendocardial infarction, episode of care unspecified Acute systolic heart failure ([facility]/HCC) Acute systolic heart failure Mixed hyperlipidemia (CMS/HCC) Mixed hyperlipidemia Inappropriate sinus tachycardia (CMS/[facility]) Hx of pulmonary embolus documented in this encounter [facility]* Diagnosis 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 Restrictive lung disease Other diseases of lung, not elsewhere classified Heart disease Heart disease, unspecified documented in this encounter [facility] Diagnosis Dermatitis Contact dermatitis and other eczema, due to unspecified cause documented in this encounter [facility]* Diagnosis Symptomatic states associated with artificial menopause- Primary Well woman exam with routine gynecological exam Routine gynecological examination Breast cancer screening by mammogram Hormone disorder Unspecified endocrine disorder Folliculitis Other specified disease of hair and hair follicles Dyspareunia, female Vaginal dryness, menopausal documented in this encounter [facility]* Diagnosis Anxiety Anxiety state, unspecified documented in this encounter [facility]* Diagnosis Nausea Nausea alone documented in this encounter [facility]* Diagnosis Hormone disorder- Primary Unspecified endocrine disorder Symptomatic states associated with artificial menopause documented in this encounter [facility]* Diagnosis Herpes zoster without complication- Primary documented in this encounter [facility]* Diagnosis Hx of pulmonary embolus- Primary documented in this encounter [facility]* Diagnosis 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) Opioid use agreement exists Encounters for other specified administrative purpose Chronic pain syndrome Palliative care by specialist [facility] Diagnosis Gastroesophageal reflux disease, unspecified whether esophagitis present documented in this encounter [facility]* Diagnosis Palliative care by specialist- Primary Chronic pain syndrome Opioid use agreement exists Encounters for other specified administrative purpose 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) NSTEMI (non-ST elevated myocardial infarction) (HCC) Acute myocardial infarction, subendocardial infarction, episode of care unspecified 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 documented [facility] this [facility] Diagnosis Bronchiectasis without complication ([facility])- Primary Bronchiectasis without acute exacerbation documented in this [facility] Diagnosis 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 documented in this encounter [facility]* Diagnosis Vision changes- Primary 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 Acute nonintractable headache, unspecified headache type Hypotension, unspecified hypotension type documented in this encounter [facility]* Diagnosis Nerve pain Unspecified neuralgia, neuritis, and radiculitis documented in this encounter [facility]* Diagnosis Nerve pain Unspecified neuralgia, neuritis, and radiculitis [facility] Other History general Narrative - Reported* Type Description Date Medical History Hodgkin lymphoma of lymph nodes of neck, unspecified Hodgkin lymphoma type Medical HistoryHypothyroidMedical HistoryTachycardiaMedical HistoryNeuropathy Medical HistoryPulmonary embolismMedical Historylung damage from radiation therapySurgical HistorybiopsyHospitalization Historyshe has had several stays for her [facility] Other Reason for referral (narrative)* Diagnostic Procedure Only (Routine) - AuthorizedSpecialtyDiagnoses / ProceduresReferred By Contact Referred To ContactMOLECULAR & FUNCTIONAL IMAGING Diagnoses Hodgkin lymphoma, unspecified Hodgkin lymphoma type, unspecified body region (HCC) 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) Procedures NM PET/CT SKULL-THIGH SUBSEQUENT PET IMAGING CT ATTENUATION [place] [address] [place] [address] [facility] [address] [place] [address] Referral IDStatusReasonStart DateExpiration DateVisits RequestedVisits [id number] Auto-Generated Referral [facility] for referral (narrative)* Diagnostic Procedure Only (Routine) - AuthorizedSpecialtyDiagnoses / ProceduresReferred By Contact Referred To ContactMOLECULAR & FUNCTIONAL IMAGING Diagnoses Nodular sclerosing Hodgkin's lymphoma, unspecified body region (HCC) Procedures NM PET/CT SKULL-THIGH SUBSEQUENT PET IMAGING CT ATTENUATION [place] [address] [place] [address] [facility] [address] [id number] Referral IDStatusReasonStart DateExpiration DateVisits RequestedVisits [id number] Auto-Generated Referral [facility] for referral (narrative)* Outpatient Procedure (Routine) - Pending ReviewSpecialtyDiagnoses / ProceduresReferred By ContactReferred To [facility] Diagnoses Nodular sclerosing Hodgkin's lymphoma, unspecified body region (HCC) BAEZ (dyspnea on exertion) Chronic cough Procedures ECHO ECHO TTHRC R-T 2D W/WOM-MODE COMPL SPEC&COLR D Sylvia Mancilla APRN.TRAINING AND DEVELOPMENT DIRECTOR [address] [place] [address] [facility] [place] [address] [place] [address] Referral IDStatusReasonStkerrick DateExpiration DateVisits RequestedVisits [id number] Review Auto-Generated Referral [facility] for referral (narrative)* Diagnostic Procedure Only (Routine) - Pending ReviewSpecialtyDiagnoses / ProceduresReferred By Contact Referred To ContactMOLECULAR & FUNCTIONAL IMAGING Diagnoses Nodular sclerosing Hodgkin's lymphoma, unspecified body region (HCC) Procedures NM PET/CT SKULL-THIGH SUBSEQUENT PET IMAGING CT ATTENUATION [place] [address] [place] [address] [facility] [address] [place] [address] Referral IDStatusReasonStart DateExpiration DateVisits RequestedVisits [id number] Review Auto-Generated Referral [facility] for referral (narrative)* Outpatient Procedure (Routine) - AuthorizedSpecialtyDiagnoses / ProceduresReferred By ContactReferred To [facility] Diagnoses Bronchitis Procedures NITRIC OXIDE, EXHALED NITRIC OXIDE GAS DETERMINATION Don Chan APRN.CNP [address] [place] [address] [place] [address] Referral IDStatusReasonStart DateExpiration DateVisits RequestedVisits [id number] Auto-Generated Referral * Outpatient Procedure (Routine) - AuthorizedSpecialtyDiagnoses / Procedures Referred By ContactReferred To [facility] Diagnoses Chronic cough Procedures LUNG DIFFUSION CAPACITY (DLCO) DIFFUSING CAPACITY Don Chan APRN.CNP [address] [place] [address] [place] [address] Referral IDStatusReasonStart DateExpiration DateVisits RequestedVisits [id number] Auto-Generated Referral * Outpatient Procedure (Routine) - AuthorizedSpecialtyDiagnoses / Procedures Referred By ContactReferred To [facility] Diagnoses Chronic cough Procedures SPIROMETRY - BASELINE AND POST DILATOR BRNCDILAT RSPSE SPMTRY PRE&POST-BRNCDILAT ADMN Don Chan APRN.CNP [address] [place] [address] [facility] [place] [address] [place] [address] Referral IDStatusReasonStart DateExpiration DateVisits RequestedVisits [id number] Auto-Generated Referral / [facility] for referral (narrative)* Diagnostic Procedure Only (Routine) - Pending ReviewSpecialtyDiagnoses / ProceduresReferred By Contact Referred To ContactMOLECULAR & FUNCTIONAL IMAGING 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) Procedures NM PET/CT SKULL-THIGH SUBSEQUENT PET IMAGING CT ATTENUATION [place] [address] [place] [address] [facility] [address] [place] [address] Referral IDStatusReasonStart DateExpiration DateVisits RequestedVisits [id number] Review Auto-Generated Referral / [facility] for referral (narrative)* Diagnostic Procedure Only (Routine) - AuthorizedSpecialtyDiagnoses / ProceduresReferred By Contact Referred To ContactMOLECULAR & FUNCTIONAL IMAGING Diagnoses 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) Procedures NM PET/CT SKULL-THIGH SUBSEQUENT PET IMAGING CT ATTENUATION SKULL BASE MID-THIGH Ruperto Ledezma MD [address] [place] [address] [place] [address] [facility] [address] [place] [address] Referral IDStatusReasonStart DateExpiration DateVisits RequestedVisits [id number] Auto-Generated Referral / [facility] for referral (narrative)* Diagnostic Procedure Only (Routine) - Pending ReviewSpecialtyDiagnoses / ProceduresReferred By Contact Referred To ContactXR IMAGING Diagnoses Dysphagia, unspecified type Gastroesophageal reflux disease, unspecified whether esophagitis present Procedures XR ESOPHAGRAM RADIOLOGIC EXAM ESOPHAGUS SINGLE CONTRAST STUDY Anil Franco PA-C [address] [place] [address] [place] [address] Referral IDStatusReasonStart DateExpiration DateVisits RequestedVisits [id number] Review Auto-Generated Referral * Diagnostic Procedure Only (Routine) - AuthorizedSpecialtyDiagnoses / ProceduresReferred By ContactReferred To ContactXR IMAGING Diagnoses Dysphagia, unspecified type Procedures XR MODIFIED BARIUM SWALLOW W SPEECH THERAPY RADIOLOGIC EXAM SWALLOW FUNCTION CONTRAST STUDY Anil Franco PA-C [address] [place] [address] [place] [address] Referral IDStatusReasonStart DateExpiration DateVisits RequestedVisits [id number] Auto-Generated Referral [facility] for referral (narrative)* Diagnostic Procedure Only (Routine) - ClosedSpecialtyDiagnoses / ProceduresReferred By ContactReferred To ContactXR IMAGING Diagnoses Dysphagia, unspecified type Procedures XR MODIFIED BARIUM SWALLOW W SPEECH THERAPY RADIOLOGIC EXAM SWALLOW FUNCTION CONTRAST STUDY Anil Franco PA-C [address] [place] [address] [place] [address] Referral IDStatusReasonStart DateExpiration DateVisits RequestedVisits [id number] Auto-Generated Referral [facility] for referral (narrative)* Diagnostic Procedure Only (Routine) - ClosedSpecialtyDiagnoses / ProceduresReferred By ContactReferred To ContactXR IMAGING Diagnoses Dysphagia, unspecified type Gastroesophageal reflux disease, unspecified whether esophagitis present Procedures XR ESOPHAGRAM RADIOLOGIC EXAM ESOPHAGUS SINGLE CONTRAST STUDY Anil Franco PA-C [address] [place] [address] X[facility] Referral IDStatusReasonStart DateExpiration DateVisits RequestedVisits [id number] Auto-Generated Referral [facility] for referral (narrative)* Diagnostic Procedure Only (Routine) - Pending ReviewSpecialtyDiagnoses / ProceduresReferred By Contact Referred To ContactXR IMAGING Diagnoses Pain Procedures XR WRIST GENERAL 3V PA/LAT/OBL RIGHT RADEX WRIST COMPLETE MINIMUM 3 VIEWS Sherly Hansen PA-C [address] [place] [address] [facility] Referral IDStatusReasonStart DateExpiration DateVisits RequestedVisits [id number] Review Auto-Generated Referral / [facility] for referral (narrative)* Outpatient Procedure (Routine) - AuthorizedSpecialtyDiagnoses / ProceduresReferred By ContactReferred To [facility]RES[facility] Diagnoses Pulmonary hypertension (HCC) Procedures OXIMETRY WITH AMBULATION NONINVASIVE EAR/PULSE OXIMETRY Carole Morales APRN.CNP [address] [place] [address] [facility] [place] [address] [place] [address] Referral IDStatusReasonStart DateExpiration DateVisits RequestedVisits [id number] Auto-Generated Referral [facility] for referral (narrative)* Diagnostic Procedure Only (Routine) - ClosedSpecialtyDiagnoses / ProceduresReferred By ContactReferred To ContactXR IMAGING Diagnoses Polyarthralgia Procedures XR FOOT GENERAL 3V AP/LAT/OBL BILATERAL RADEX FOOT COMPLETE MINIMUM 3 VIEWS Simin Brandt MD [address] [place], [place] [address] [facility] [place] [address] Referral IDStatusReasonStart DateExpiration DateVisits RequestedVisits [id number] Auto-Generated Referral * Diagnostic Procedure Only (Routine) - ClosedSpecialtyDiagnoses / Procedures Referred By ContactReferred To ContactXR IMAGING Diagnoses Polyarthralgia Procedures XR HAND GENERAL 3V PA/LAT/OBL BILATERAL RADEX HAND MINIMUM 3 VIEWS Simin Brandt MD [address] [place] [address] [facility] [place] [address] Referral IDStatusReasonStart DateExpiration DateVisits RequestedVisits [id number] Auto-Generated Referral * Diagnostic Procedure Only (Routine) - ClosedSpecialtyDiagnoses / Procedures Referred By ContactReferred To ContactXR IMAGING Diagnoses Polyarthralgia Procedures XR KNEE GENERAL 4V AP BOTH/PA BOTH/LAT/MERC BILATERAL RADIOLOGIC EXAM KNEE COMPLETE 4/MORE VIEWS Simin Brandt MD [address] [place] [address] [facility] [place] [address] Referral IDStatusReasonStart DateExpiration DateVisits RequestedVisits [id number] Auto-Generated Referral * Diagnostic Procedure Only (Routine) - ClosedSpecialtyDiagnoses / Procedures Referred By ContactReferred To ContactXR IMAGING Diagnoses Polyarthralgia Procedures XR SACROILIAC JOINTS 2V AP PELVIS/FERGUESON RADIOLOGIC EXAMINATION SACROILIAC JNTS <3 VIEWS Simin Brandt MD [address] [place] [address] [facility] [place] [address] Referral IDStatusReasonStart DateExpiration DateVisits RequestedVisits [id number] Auto-Generated Referral [facility] for referral (narrative)* Diagnostic Procedure Only (Routine) - ClosedSpecialtyDiagnoses / ProceduresReferred By ContactReferred To ContactXR IMAGING Diagnoses Polyarthralgia Procedures XR FOOT GENERAL 3V AP/LAT/OBL BILATERAL RADEX FOOT COMPLETE MINIMUM 3 VIEWS Simin Brandt MD [address] [place] [address] [facility] [place] [address] Referral IDStatusReasonStart DateExpiration DateVisits RequestedVisits [id number] Auto-Generated Referral * Diagnostic Procedure Only (Routine) - ClosedSpecialtyDiagnoses / Procedures Referred By ContactReferred To ContactXR IMAGING Diagnoses Polyarthralgia Procedures XR HAND GENERAL 3V PA/LAT/OBL BILATERAL RADEX HAND MINIMUM 3 VIEWS Simin Brandt MD [address] [place] [address] [facility] [place] [address] Referral IDStatusReasonStart DateExpiration DateVisits RequestedVisits [id number] Auto-Generated Referral * Diagnostic Procedure Only (Routine) - ClosedSpecialtyDiagnoses / Procedures Referred By ContactReferred To ContactXR IMAGING Diagnoses Polyarthralgia Procedures XR KNEE GENERAL 4V AP BOTH/PA BOTH/LAT/MERC BILATERAL RADIOLOGIC EXAM KNEE COMPLETE 4/MORE VIEWS Simin Brandt MD [address] [place] [address] [facility] [place] [address] Referral IDStatusReasonStart DateExpiration DateVisits RequestedVisits [id number] Auto-Generated Referral / * Diagnostic Procedure Only (Routine) - ClosedSpecialtyDiagnoses / Procedures Referred By ContactReferred To ContactXR IMAGING Diagnoses Polyarthralgia Procedures XR SACROILIAC JOINTS 2V AP PELVIS/FERGUESON RADIOLOGIC EXAMINATION SACROILIAC JNTS <3 VIEWS Simin Brandt MD [address] [place] [address] [facility] [place] [address] Referral IDStatusReasonStart DateExpiration DateVisits RequestedVisits [id number] Auto-Generated Referral [facility] for referral (narrative)* Diagnostic Procedure Only (Routine) - ClosedSpecialtyDiagnoses / ProceduresReferred By ContactReferred To ContactMOLECULAR & FUNCTIONAL IMAGING 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) Procedures NM PET/CT SKULL-THIGH SUBSEQUENT PET IMAGING CT ATTENUATION [place] [address] [place] [address] [facility] [address] [place] [address] Referral IDStatusLainaasonStart DateExpiration DateVisits RequestedVisits [id number] Auto-Generated Referral / [facility] for referral (narrative)* Diagnostic Procedure Only (Routine) - ClosedSpecialtyDiagnoses / ProceduresReferred By ContactReferred To ContactMOLECULAR & FUNCTIONAL IMAGING Diagnoses 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) Procedures NM PET/CT SKULL-THIGH SUBSEQUENT PET IMAGING CT ATTENUATION SKULL BASE MID-THIGH Ruperto Ledezma MD [address] [place] [address] [place] [address] [facility] [address] [place] [address] Referral IDStatusReasonStart DateExpiration DateVisits RequestedVisits [id number] Auto-Generated Referral / [facility] for referral (narrative)* Diagnostic Procedure Only (Routine) - ClosedSpecialtyDiagnoses / ProceduresReferred By ContactReferred To ContactMOLECULAR & FUNCTIONAL IMAGING Diagnoses Nodular sclerosing Hodgkin's lymphoma, unspecified body region (HCC) Procedures NM PET/CT SKULL-THIGH SUBSEQUENT PET IMAGING CT ATTENUATION [place] [address] [place] [address] [facility] [address] [place] [address] Referral IDStatusReasonStart DateExpiration DateVisits RequestedVisits [id number] Auto-Generated Referral / [facility] for referral (narrative)* Diagnostic Procedure Only (Routine) - New RequestSpecialtyDiagnoses / ProceduresReferred By Contact Referred To ContactMOLECULAR & FUNCTIONAL IMAGING 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 for referral (narrative)* Diagnostic Procedure Only (Routine) - ClosedSpecialtyDiagnoses / ProceduresReferred By ContactReferred To ContactMOLECULAR & FUNCTIONAL IMAGING Diagnoses Nodular sclerosing Hodgkin's lymphoma, unspecified body region (HCC) Procedures NM PET/CT SKULL-THIGH SUBSEQUENT PET IMAGING CT ATTENUATION SK[place] [address] [place] [address] [facility] [address] [place] [address] Referral IDStatusReasonStart DateExpiration DateVisits RequestedVisits [id number] Auto-Generated Referral [facility] for referral (narrative)* Diagnostic Procedure Only (Routine) - ClosedSpecialtyDiagnoses / ProceduresReferred By ContactReferred To ContactMOLECULAR & FUNCTIONAL IMAGING Diagnoses Nodular sclerosing Hodgkin's lymphoma, 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) Procedures NM PET/CT SKULL-THIGH SUBSEQUENT PET IMAGING CT ATTENUATION SK[place] [address] [place] [address] [facility] [address] [place] [address] Referral IDStatusReasonStart DateExpiration DateVisits RequestedVisits [id number] Auto-Generated Referral [facility] for referral (narrative)* Diagnostic Procedure Only (Routine) - ClosedSpecialtyDiagnoses / ProceduresReferred By ContactReferred To ContactMOLECULAR & FUNCTIONAL IMAGING Diagnoses Hodgkin lymphoma, unspecified Hodgkin lymphoma type, unspecified body region (HCC) Procedures NM PET/CT SKULL-THIGH SUBSEQUENT TUMOR IMAGING PET W/CONC CT SKULL-THIGH Sylvia Mancilla APRN.CNP [address] [place] [address] Molecular [facility] Imaging [address] [place] [address] Referral IDStatusReasonStart DateExpiration DateVisits RequestedVisits [id number] Auto-Generated Referral / [facility] for referral (narrative)* Outpatient Procedure (Routine) - New RequestSpecialtyDiagnoses / ProceduresReferred By ContactReferred To [facility] Diagnoses Acute hypoxic respiratory failure (HCC) Bronchiectasis without complication (HCC) Restrictive lung disease Procedures SIX MINUTE WALK CARDIOPULMONARY EXERCISE STRESS 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 APRN.TRAINING AND DEVELOPMENT DIRECTOR [address] [place] [address] [address] Referral IDStatusReasonStart DateExpiration DateVisits RequestedVisits [id number] Request Auto-Generated Referral * Outpatient Procedure (Routine) - New RequestSpecialtyDiagnoses / Procedures Referred By ContactReferred To [facility] Diagnoses Acute hypoxic respiratory failure (HCC) Bronchiectasis without complication (HCC) Restrictive lung disease Procedures LUNG DIFFUSION CAPACITY (DLCO) DIFFUSING CAPACITY 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 APRN.TRAINING AND DEVELOPMENT DIRECTOR [address] [place] [address] [address] Referral IDStatusReasonStart DateExpiration DateVisits RequestedVisits [id number] Request Auto-Generated Referral * Outpatient Procedure (Routine) - New RequestSpecialtyDiagnoses / Procedures Referred By ContactReferred To [facility] Diagnoses Acute hypoxic respiratory failure (HCC) Bronchiectasis without complication (HCC) Restrictive lung disease Procedures SPIROMETRY WITH DILATOR IF OBSTRUCTED BRNCDILAT RSPSE SPMTRY PRE&POST-BRNCDILAT ADMN 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 APRN.TRAINING AND DEVELOPMENT DIRECTOR [address] [place] [address] [address] Referral IDStatusReasonStart DateExpiration DateVisits RequestedVisits [id number] Request Auto-Generated Referral [facility] for referral (narrative)* Outpatient Procedure (Routine) - AuthorizedSpecialtyDiagnoses / ProceduresReferred By ContactReferred To [facility] Diagnoses Pleural effusion, left Pulmonary hypertension (HCC) Other acute pulmonary embolism, unspecified whether acute cor pulmonale present (HCC) Procedures ECHO ECHO TTHRC R-T 2D W/WOM-MODE COMPL SPEC&[place] [address] [place] [address] [facility] [place] [address] [place] [address] Referral IDStatusResaint [facility]oseph health centerStkerrick DateExpiration DateVisits RequestedVisits [id number] Auto-Generated Referral [facility] for referral (narrative)* Diagnostic Procedure Only (Routine) - New RequestSpecialtyDiagnoses / ProceduresReferred By Contact Referred To ContactMOLECULAR & FUNCTIONAL IMAGING Diagnoses Other secondary pulmonary hypertension (HCC) Procedures NM LUNG VENT / PERF VQ PULMONARY VENTILATION & PERFUSION IMAGING Sheela Chino APRN.MANAGEMENT INTERNSHIP [address] [address] Molecular [facility] Functional Imaging [address] [place] [address] Ref[facility] DateExpiration DateVisits RequestedVisits [id number] Request Auto-Generated Referral [facility] for referral (narrative)* Diagnostic Procedure Only (Routine) - ClosedSpecialtyDiagnoses / ProceduresReferred By ContactReferred To ContactMOLECULAR & FUNCTIONAL IMAGING Diagnoses Other secondary pulmonary hypertension (HCC) Procedures NM LUNG VENT / PERF VQ PULMONARY VENTILATION & PERFUSION IMAGING Sheela Chino APRN.CNS [address] [facility] [address] [place] [id number] Molecular [facility] Functional Imaging [address] [place] [id number] Referral IDStatusReasonStart DateExpiration DateVisits RequestedVisits [id number] Auto-Generated Referral [facility] for referral (narrative)* Consultation (Routine) - Pending ReviewSpecialtyDiagnoses / ProceduresReferred By ContactReferred To ContactImmunology Diagnoses Pneumonia due to infectious organism, unspecified laterality, unspecified part of lung Acute respiratory failure, unspecified whether with hypoxia or hypercapnia (CMS/HCC) Restrictive lung disease Procedures NM OFFICE/OUTPATIENT [facility] 60 MINUTES Sheila Lin, NUCLEAR POWERPLANT MECHANIC [address] [facility] [place] [address] [facility] DateExpiration DateVisits RequestedVisits [id number] Review Specialty Services Required / Scheduling Instructions Dr Watson Zepeda [facility] for visit Narrative* Diagnostic Procedure Only (Routine) - ClosedSpecialtyDiagnoses / ProceduresReferred By ContactReferred To ContactXR IMAGING Diagnoses Dysphagia, unspecified type Procedures XR MODIFIED BARIUM SWALLOW W SPEECH THERAPY RADIOLOGIC EXAM SWALLOW FUNCTION CONTRAST STUDY Anil Franco PA-C [address] [place] [address] [facility] [place] [address] Referral IDStatusReasonStkerrick DateExpiration DateVisits RequestedVisits [id number] Auto-Generated Referral [facility] for visit Narrative* Diagnostic Procedure Only (Routine) - ClosedSpecialtyDiagnoses / ProceduresReferred By ContactReferred To Contact XR IMAGING Diagnoses Polyarthralgia Procedures XR FOOT GENERAL 3V AP/LAT/OBL BILATERAL RADEX FOOT COMPLETE MINIMUM 3 VIEWS Simin Brandt MD [address] [place] [address] [facility] [place] [address] Referral IDStatusReasonStart DateExpiration DateVisits RequestedVisits [id number] Auto-Generated Referral / [facility] for visit Narrative* Diagnostic Procedure Only (Routine) - ClosedSpecialtyDiagnoses / ProceduresReferred By ContactReferred To Contact [facility] Diagnoses Pleural effusion, left Procedures US CHEST EFFUSION SURVEY US CHEST REAL TIME W/IMAGE DOCUMENTATION Carole Ruano, ACCOUNT SERVICES ASSOCIATE.TRAINING AND DEVELOPMENT DIRECTOR [address] [place] [address] [facility] [place] [address] Referral IDStatusReasonStart DateExpiration DateVisits RequestedVisits [id number] Auto-Generated Referral / [facility] for visit Narrative* Diagnostic Procedure Only (Routine) - ClosedSpecialtyDiagnoses / ProceduresReferred By ContactReferred To Contact MOLECULAR & FUNCTIONAL IMAGING Diagnoses Other secondary pulmonary hypertension (HCC) Procedures NM LUNG VENT / PERF VQ PULMONARY VENTILATION & PERFUSION IMAGING Sheela Chino, ACCOUNT SERVICES ASSOCIATE.[facility] [address] [facility] [address] [place] [id number] Molecular [facility] Functional Imaging [address] [place] [address] Referral IDStatusReasonStkerrick DateExpiration DateVisits RequestedVisits [id number] Auto-Generated Referral / [facility] for visit Narrative* Diagnostic Procedure Only (Routine) - ClosedSpecialtyDiagnoses / ProceduresReferred By ContactReferred To Contact [facility] Diagnoses Pleural effusion Procedures US CHEST EFFUSION SURVEY US CHEST REAL TIME W/[place] [address] [place] [address] Phone: tel: fax: [place] [address] Referral IDStatusReasonStlina DateExpiration DateVisits RequestedVisits [id number] Auto-Generated Referral / [facility] Summary Purpose Family History No Family History [...] No Advanced Directives Records FoundDocuments on File TypeDate RecordedPatient RepresentativeExplanationAdvance Directive(s)09/30/2017 12:34 PMAdvance Directive(s)04/16/2016 9:44 PMAdvance Directive(s)01/28/2016 8:20 PMTypeDate RecordedPatient RepresentativeExplanationAdvance Directive(s) 09/30/2017 12:34 PMAdvance Directive(s)04/16/2016 9:44 PMAdvance Directive(s) 01/28/2016 8:20 PMTypeDate RecordedPatient RepresentativeExplanationAdvance Directive(s)09/20/2021 8:56 PMAdvance Directive(s)09/30/2017 12:34 PMAdvance Directive(s)04/16/2016 9:44 PMAdvance Directive(s)01/28/2016 8:20 PM Advance Directive Response Recorded Date/ Time Advance Directives No April 22 1:09pm Date ActivatedDate MkfwcfazjfiEczfbkru01/31/2024 1:21 AM12/20/2023 7:38 PM QuestionAnswerCommentsFull Code Order Discussed With:* Patient Date ActivatedDate FnfhkbecvybHqzpgoen60/31/2024 1:21 AM12/20/2023 7:38 PM QuestionAnswerCommentsFull Code Order Discussed With:* Patient Medications Administered Section Medication OrderMAR ActionAction DateDoseRateSite pembrolizumab 200 mg in NaCl 0.9% 50 mL (KEYTRUDA) 200 mg, INTRAVENOUS, Administer over 30 Minutes, ONCE, 1 dose, On Sat05/17/21 at 1230, Approx TotalVolume - Expires: 3 1230 RF Administer with 0.2 micron filter. New Bag/Syringe/Fbdhrv1405/17/2021 12:55 PM [id number] mgMedication OrderMAR Action Action DateDoseRateSite pembrolizumab 200 mg in NaCl 0.9% 50 mL (KEYTRUDA) 200 mg, INTRAVENOUS, Administer over 30 Minutes, ONCE, 1 dose, On Sat06/14/21 at 0900, Approx TotalVolume - Expires: 06/14/21 1530 Administer with 0.2 micron filter. New Bag/Syringe/Qtywif2206/14/2021 9:28 AM [id number] mgMedication OrderMAR Action Action DateDoseRateSite pembrolizumab 200 mg in NaCl 0.9% 66 mL (KEYTRUDA) 200 mg, INTRAVENOUS, Administer over 30 Minutes, ONCE, 1 dose, On Sat07/05/21 at 0900, Expires: 07/05/21 1700 Administer with 0.2 micron filter. New Bag/Syringe/Ingnmk7407/05/2021 8:58 AM [id number] mgMedication OrderMAR Action Action DateDoseRateSite pembrolizumab 200 mg in NaCl 0.9% 66 mL (KEYTRUDA) 200 mg, INTRAVENOUS, Administer over 30 Minutes, ONCE, 1 dose, On Sat07/26/21 at 1100, Expires: 6.9 1100 RF Administer with 0.2 micron filter. New Bag/Syringe/Bymqez6207/26/2021 11:42 AM [id number] mgMedication OrderMAR Action Action DateDoseRateSite triamcinolone acetonide 10 mg injection (KeNALog 10) 10 mg, INTRALESIONAL, ONCE, 1 dose, On Sat07/28/21 at 0830 Given07/28/2021 8:30 AM EDT10 mgOtherMedication OrderMAR ActionAction DateDose RateSite pembrolizumab 200 mg in NaCl 0.9% 66 mL (KEYTRUDA) 200 mg, INTRAVENOUS, Administer over 30 Minutes, ONCE, 1 dose, On Sat08/16/21 at 0930, Expires 08/16/21 @ 1525 Administer with 0.2 micron filter. New Bag/Syringe/Sqdlqa5508/16/2021 9:50 AM [id number] mgMedication OrderMAR Action Action DateDoseRateSite triamcinolone acetonide 10 mg injection (KeNALog 10) 10 mg, INTRALESIONAL, ONCE, 1 dose, On Sat09/05/21 at 1830 Given09/05/2021 6:30 PM EDT10 mgOtherMedication OrderMAR ActionAction DateDose RateSite pembrolizumab 200 mg in NaCl 0.9% 66 mL (KEYTRUDA) 200 mg, INTRAVENOUS, Administer over 30 Minutes, ONCE, 1 dose, On Sat09/06/21 at 1300, Expires: 6.[address] RF Administer with 0.2 micron filter. New Bag/Syringe/Ldhqbu2909/06/2021 1:25 PM [id number] mgMedication OrderMAR Action Action DateDoseRateSite pembrolizumab 200 mg in NaCl 0.9% 66 mL (KEYTRUDA) 200 mg, INTRAVENOUS, Administer over 30 Minutes, ONCE, 1 dose, On Sat10/26/21 at 1130, Expires:10/26/21 1200 RF Administer with 0.2 micron filter. New Bag/Syringe/Herkff0810/26/2021 11:46 AM [id number] mgMedication OrderMAR Action Action DateDoseRateSite pembrolizumab 200 mg in NaCl 0.9% 66 mL (KEYTRUDA) 200 mg, INTRAVENOUS, Administer over 30 Minutes, ONCE, 1 dose, On Sat11/15/21 at 1400, Expires: 11/16/21 1400 Administer with 0.2 micron filter. New Bag/Syringe/Vitqwb6711/15/2021 2:11 PM [id number] mgMedication OrderMAR Action Action DateDoseRateSite pembrolizumab 200 mg in NaCl 0.9% 66 mL (KEYTRUDA) 200 mg, INTRAVENOUS, Administer over 30 Minutes, ONCE, 1 dose, On Sat12/06/21 at 1330, Expires: 12/07/21 2100 Administer with 0.2 micron filter. New Bag/Syringe/Lushaw3412/06/2021 1:55 PM [id number] mgMedication OrderMAR Action Action DateDoseRateSite pembrolizumab 200 mg in NaCl 0.9% 66 mL (KEYTRUDA) 200 mg, INTRAVENOUS, Administer over 30 Minutes, ONCE, 1 dose, On Sat12/27/21 at 1000, Expires: 12/27/21 1700 Administer with 0.2 micron filter. New Bag/Syringe/Vjtgkp2512/27/2021 10:30 AM [id number] mgMedication OrderMAR Action Action DateDoseRateSite pembrolizumab 200 mg in NaCl 0.9% 66 mL (KEYTRUDA) 200 mg, INTRAVENOUS, Administer over 30 Minutes, ONCE, 1 dose, On Sat01/18/22 at 1100, Exp 12. 1100 RF Approx Total Vol Administer with 0.2 micron filter. New Bag/Syringe/Kmwrzp0601/18/2022 10:55 AM [id number] mgMedication OrderMAR Action Action DateDoseRateSite pembrolizumab 200 mg in NaCl 0.9% 66 mL (KEYTRUDA) 200 mg, INTRAVENOUS, Administer over 30 Minutes, ONCE, 1 dose, On Sat02/14/22 at 1230, Exp 02/14/22 @ 1830 Approx Total Vol Administer with 0.2 micron filter. New Bag/Syringe/Dvksjg9602/14/2022 12:53 PM [id number] mgMedication OrderMAR Action Action DateDoseRateSite pembrolizumab 200 mg in NaCl 0.9% 66 mL (KEYTRUDA) 200 mg, INTRAVENOUS, Administer over 30 Minutes, ONCE, 1 dose, On Sat04/10/22 at 0930, Exp 2. 1000 Administer with 0.2 micron filter. New Bag/Syringe/Mzfhqg6504/10/2022 9:56 AM [id number] mgMedication OrderMAR Action Action DateDoseRateSite pembrolizumab 200 mg in NaCl 0.9% 66 mL (KEYTRUDA) 200 mg, INTRAVENOUS, Administer over 30 Minutes, ONCE, 1 dose, On Sat05/01/22 at 1000, 3.15.23 1000Administer with 0.2 micron filter. New Bag/Syringe/Tyvfkp0505/01/2022 10:27 AM [id number] mgMedication OrderMAR Action Action DateDoseRateSite triamcinolone acetonide 10 mg injection (KeNALog 10) 10 mg, INTRALESIONAL, ONCE, 1 dose, On Sat10/18/22 at 1030, 0.1-0.5 ml of 10 mg ILK to hidradenitissupprativa lesion Given10/18/2022 10:30 AM EDT10 mgThigh, Left Health Concerns InfectionOnset DateLast IndicatedResolved TimeCOVID-19 Aguvgfgft65/03/2022 09/20/2021InfectionOnset DateLast IndicatedResolved TimeCOVID-19 Confirmed // 8:53 PM EDT Reason for Referral SpecialtyDiagnoses / ProceduresReferred By ContactReferred To Contact Diagnoses Pulmonary hypertension (HCC) Procedures CONSULT TO PULMONARY HYPERTENSION CLINIC OFFICE/OUTPATIENT [facility] [address] [place] [address] [place] [address] Referral IDStatusReasonStart DateExpiration DateVisits RequestedVisits [id number] PCP Requested Referral [id number] / ProceduresReferred By ContactReferred To [facility] Diagnoses Chemotherapy-induced neuropathy (HCC) Anxiety and depression Procedures CONSULT TO [facility] (CHRONIC PAIN) OFFICE/OUTPATIENT [facility] 60 MINUTES Kodi Pantoja MD [address] [place] [address] Referral IDStatusReasonStart DateExpiration DateVisits RequestedVisits [id number] Review PCP Requested Referral [id number] / ProceduresReferred By ContactReferred To Contact Diagnoses Daily headache Procedures CT head wo IV contrast Sheila Lin, NUCLEAR POWERPLANT MECHANIC [address] [facility] [place] [address] Referral IDStatusReasonStart DateExpiration DateVisits RequestedVisits [id number] [id number] / ProceduresReferred By ContactReferred To ContactCT IMAGING Diagnoses Pneumonia due to infectious organism, unspecified laterality, unspecified part of lung Procedures CT CHEST WO IVCON DIAGNOSTIC COMPUTED TOMOGRAPHY THORAX W/O CNTRST 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, ACCOUNT SERVICES ASSOCIATE.TRAINING AND DEVELOPMENT DIRECTOR [address] [place] [address] Ct Imaging [facility] Referral IDStatusReasonStart DateExpiration DateVisits RequestedVisits [id number] Auto-Generated Referral /[id number] / ProceduresReferred By ContactReferred To ContactPain Management Diagnoses Chronic pain syndrome Procedures CONSULT TO PAIN MGT OFFICE/OUTPATIENT [facility] 60 MINUTES Irene Han, LORY.TRAINING AND DEVELOPMENT DIRECTOR [address] [place] [address] Referral IDStatusReasonStart DateExpiration DateVisits RequestedVisits [id number] PCP Requested Referral /[id number] / ProceduresReferred By ContactReferred To ContactGastroenterology Diagnoses Dysphagia, unspecified type Procedures CONSULT TO GASTROENTEROLOGY OFFICE/OUTPATIENT [facility] 60 MINUTES Anil Franco PA-C [address] [place] [address] Referral IDStatusReasonStart DateExpiration DateVisits RequestedVisits [id number] PCP Requested Referral /[id number] / ProceduresReferred By ContactReferred To ContactREHAB AND SPORTS THERAPY [facility] Diagnoses Hoarseness Procedures CONSULT TO SPEECH THERAPY OFFICE/OUTPATIENT [facility] 60 MINUTES Anil Franco PA-C [address] [place] [address] [facility] [place] [address] [place] [address] Referral IDStatusReasonStart DateExpiration DateVisits RequestedVisits [id number] Auto-Generated Referral [id number] / ProceduresReferred By ContactReferred To ContactCardiology Diagnoses Pleural effusion, left Pulmonary hypertension (HCC) Procedures CONSULT TO CARDIOLOGY OFFICE/OUTPATIENT [facility] 60 MINUTES Carole Ruano, ACCOUNT SERVICES ASSOCIATE.TRAINING AND DEVELOPMENT DIRECTOR [address] [place] [address] Referral IDStatusReasonStart DateExpiration DateVisits RequestedVisits [id number] PCP Requested Referral /[id number] / ProceduresReferred By ContactReferred To ContactUS IMAGING Diagnoses Pleural effusion, left Procedures US CHEST EFFUSION SURVEY US CHEST REAL TIME W/IMAGE DOCUMENTATION Carole Ruano, ACCOUNT SERVICES ASSOCIATE.TRAINING AND DEVELOPMENT DIRECTOR [address] [place] [address] [place] [address] Referral IDStatusReasonStart DateExpiration DateVisits RequestedVisits [id number] Auto-Generated Referral /[id number] / ProceduresReferred By ContactReferred To Contact Diagnoses Bronchitis Restrictive lung disease Carole Ruano, ACCOUNT SERVICES ASSOCIATE.TRAINING AND DEVELOPMENT DIRECTOR [address] [place] [address] Referral IDStatusReasonStart DateExpiration DateVisits RequestedVisits [id number] / ProceduresReferred By Contact Referred To ContactEnt - Otolaryngology Diagnoses Dysphagia, unspecified type Hoarseness Procedures CONSULT TO ENT OFFICE/OUTPATIENT [facility] 60 MINUTES 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, ACCOUNT SERVICES ASSOCIATE.TRAINING AND DEVELOPMENT DIRECTOR [address] [place] [address] Referral IDStatusReasonStart DateExpiration DateVisits RequestedVisits [id number] PCP Requested Referral /[id number] / ProceduresReferred By ContactReferred To ContactCT IMAGING Diagnoses Acute cough Procedures CT CHEST WO IVCON DIAGNOSTIC COMPUTED TOMOGRAPHY THORAX W/[place] [address] [place] [address] [address] [facility] Referral IDStatusReasonStart DateExpiration DateVisits RequestedVisits [id number] Auto-Generated Referral / Additional Source Comments INFORMATION SOURCE (unrecogn ized section and content) DATE CREATED AUTHOR 03/03/2019 [facility] DATE CREATED AUTHOR AUTHOR'S ORGANIZ ATION 09/22/2019 [facility] DATE CREATED AUTHOR AUTHOR'S ORGANIZ ATION 04/19/2021 [facility] DATE CREATED AUTHOR AUTHOR'S ORGANIZ ATION 07/08/2021 [facility] DATE CREATED AUTHOR AUTHOR'S ORGANIZ ATION 06/23/2022 [facility] DATE CREATED AUTHOR AUTHOR'S ORGANIZ ATION 10/19/2022 [facility] DATE CREATED AUTHOR AUTHOR'S ORGANIZ ATION 03/29/2023 [facility] DATE CREATED AUTHOR AUTHOR'S ORGANIZ ATION 05/11/2024 [facility] DATE CREATED AUTHOR AUTHOR'S ORGANIZ ATION 05/20/2024 [facility] DATE CREATED AUTHOR AUTHOR'S ORGANIZ ATION 08/23/2024 [facility] DATE CREATED AUTHOR AUTHOR'S ORGANIZ ATION 12/03/2024 [facility] DATE CREATED AUTHOR AUTHOR'S ORGANIZ ATION 12/27/2024 [facility] DATE CREATED AUTHOR AUTHOR'S ORGANIZ ATION 12/31/2024 [facility] Source Comments (unrecognize d section and content) In the event this informatio n is protected by the Federal Confidentiality of Alcohol and Drug Abuse Patient Records regulations: The Federal rules restrict any use of the information to criminally investigate or prosecute any alcohol or drug abuse patient.[facility] the event this information is protected by the Federal Confidentiality of Alcohol and Drug Abuse Patient Records regulations: The Federal rules restrict any use of the information to criminally investigate or prosecute any alcohol or drug abuse patient.[facility]In the event this information is protected by the Federal Confidentiality of Alcohol and Drug Abuse Patient Records regulations: The Federal rules restrict any use of the information to criminally investigate or prosecute any alcohol or drug abuse patient.[facility]In the event this information is protected by the Federal Confidentiality of Alcohol and Drug Abuse Patient Records regulations: The Federal rules restrict any use of the information to criminally investigate or prosecute any alcohol or drug abuse patient.[facility] ShawIn the event this information is protected by the Federal Confidentiality of Alcohol and Drug Abuse Patient Records regulations: The Federal rules restrict any use of the information to criminally investigate or prosecute any alcohol or drug abuse patient.[facility]In the event this information is protected by the Federal Confidentiality of Alcohol and Drug Abuse Patient Records regulations: The Federal rules restrict any use of the information to criminally investigate or prosecute any alcohol or drug abuse patient.[facility] ShawIn the event this information is protected by the Federal Confidentiality of Alcohol and Drug Abuse Patient Records regulations: The Federal rules restrict any use of the information to criminally investigate or prosecute any alcohol or drug abuse patient.[facility] ShawIn the event this information is protected by the Federal Confidentiality of Alcohol and Drug Abuse Patient Records regulations: The Federal rules restrict any use of the information to criminally investigate or prosecute any alcohol or drug abuse patient.[facility] ShawIn the event this information is protected by the Federal Confidentiality of Alcohol and Drug Abuse Patient Records regulations: The Federal rules restrict any use of the information to criminally investigate or prosecute any alcohol or drug abuse patient.[facility] ShawIn the event this information is protected by the Federal Confidentiality of Alcohol and Drug Abuse Patient Records regulations: The Federal rules restrict any use of the information to criminally investigate or prosecute any alcohol or drug abuse patient.[facility] ShawIn the event this information is protected by the Federal Confidentiality of Alcohol and Drug Abuse Patient Records regulations: The Federal rules restrict any use of the information to criminally investigate or prosecute any alcohol or drug abuse patient.[facility] ShawIn the event this information is protected by the Federal Confidentiality of Alcohol and Drug Abuse Patient Records regulations: The Federal rules restrict any use of the information to criminally investigate or prosecute any alcohol or drug abuse patient.[facility] ShawIn the event this information is protected by the Federal Confidentiality of Alcohol and Drug Abuse Patient Records regulations: The Federal rules restrict any use of the information to criminally investigate or prosecute any alcohol or drug abuse patient.[facility] ShawIn the event this information is protected by the Federal Confidentiality of Alcohol and Drug Abuse Patient Records regulations: The Federal rules restrict any use of the information to criminally investigate or prosecute any alcohol or drug abuse patient.[facility] ShawIn the event this information is protected by the Federal Confidentiality of Alcohol and Drug Abuse Patient Records regulations: The Federal rules restrict any use of the information to criminally investigate or prosecute any alcohol or drug abuse patient.[facility] ShawIn the event this information is protected by the Federal Confidentiality of Alcohol and Drug Abuse Patient Records regulations: The Federal rules restrict any use of the information to criminally investigate or prosecute any alcohol or drug abuse patient.[facility] ShawIn the event this information is protected by the Federal Confidentiality of Alcohol and Drug Abuse Patient Records regulations: The Federal rules restrict any use of the information to criminally investigate or prosecute any alcohol or drug abuse patient.[facility] ShawIn the event this information is protected by the Federal Confidentiality of Alcohol and Drug Abuse Patient Records regulations: The Federal rules restrict any use of the information to criminally investigate or prosecute any alcohol or drug abuse patient.[facility] ShawIn the event this information is protected by the Federal Confidentiality of Alcohol and Drug Abuse Patient Records regulations: The Federal rules restrict any use of the information to criminally investigate or prosecute any alcohol or drug abuse patient.[facility] ShawIn the event this information is protected by the Federal Confidentiality of Alcohol and Drug Abuse Patient Records regulations: The Federal rules restrict any use of the information to criminally investigate or prosecute any alcohol or drug abuse patient.[facility] ShawIn the event this information is protected by the Federal Confidentiality of Alcohol and Drug Abuse Patient Records regulations: The Federal rules restrict any use of the information to criminally investigate or prosecute any alcohol or drug abuse patient.[facility] ShawIn the event this information is protected by the Federal Confidentiality of Alcohol and Drug Abuse Patient Records regulations: The Federal rules restrict any use of the information to criminally investigate or prosecute any alcohol or drug abuse patient.[facility] ShawIn the event this information is protected by the Federal Confidentiality of Alcohol and Drug Abuse Patient Records regulations: The Federal rules restrict any use of the information to criminally investigate or prosecute any alcohol or drug abuse patient.[facility] ShawIn the event this information is protected by the Federal Confidentiality of Alcohol and Drug Abuse Patient Records regulations: The Federal rules restrict any use of the information to criminally investigate or prosecute any alcohol or drug abuse patient.[facility] ShawIn the event this information is protected by the Federal Confidentiality of Alcohol and Drug Abuse Patient Records regulations: The Federal rules restrict any use of the information to criminally investigate or prosecute any alcohol or drug abuse patient.[facility] ShawIn the event this information is protected by the Federal Confidentiality of Alcohol and Drug Abuse Patient Records regulations: The Federal rules restrict any use of the information to criminally investigate or prosecute any alcohol or drug abuse patient.[facility] ShawIn the event this information is protected by the Federal Confidentiality of Alcohol and Drug Abuse Patient Records regulations: The Federal rules restrict any use of the information to criminally investigate or prosecute any alcohol or drug abuse patient.[facility] ShawIn the event this information is protected by the Federal Confidentiality of Alcohol and Drug Abuse Patient Records regulations: The Federal rules restrict any use of the information to criminally investigate or prosecute any alcohol or drug abuse patient.[facility] ShawIn the event this information is protected by the Federal Confidentiality of Alcohol and Drug Abuse Patient Records regulations: The Federal rules restrict any use of the information to criminally investigate or prosecute any alcohol or drug abuse patient.[facility] ShawIn the event this information is protected by the Federal Confidentiality of Alcohol and Drug Abuse Patient Records regulations: The Federal rules restrict any use of the information to criminally investigate or prosecute any alcohol or drug abuse patient.[facility] ShawIn the event this information is protected by the Federal Confidentiality of Alcohol and Drug Abuse Patient Records regulations: The Federal rules restrict any use of the information to criminally investigate or prosecute any alcohol or drug abuse patient.[facility] ShawIn the event this information is protected by the Federal Confidentiality of Alcohol and Drug Abuse Patient Records regulations: The Federal rules restrict any use of the information to criminally investigate or prosecute any alcohol or drug abuse patient.[facility] ShawIn the event this information is protected by the Federal Confidentiality of Alcohol and Drug Abuse Patient Records regulations: The Federal rules restrict any use of the information to criminally investigate or prosecute any alcohol or drug abuse patient.[facility] ShawIn the event this information is protected by the Federal Confidentiality of Alcohol and Drug Abuse Patient Records regulations: The Federal rules restrict any use of the information to criminally investigate or prosecute any alcohol or drug abuse patient.[facility] ShawIn the event this information is protected by the Federal Confidentiality of Alcohol and Drug Abuse Patient Records regulations: The Federal rules restrict any use of the information to criminally investigate or prosecute any alcohol or drug abuse patient.[facility] ShawIn the event this information is protected by the Federal Confidentiality of Alcohol and Drug Abuse Patient Records regulations: The Federal rules restrict any use of the information to criminally investigate or prosecute any alcohol or drug abuse patient.[facility] ShawIn the event this information is protected by the Federal Confidentiality of Alcohol and Drug Abuse Patient Records regulations: The Federal rules restrict any use of the information to criminally investigate or prosecute any alcohol or drug abuse patient.[facility] ShawIn the event this information is protected by the Federal Confidentiality of Alcohol and Drug Abuse Patient Records regulations: The Federal rules restrict any use of the information to criminally investigate or prosecute any alcohol or drug abuse patient.[facility] ShawIn the event this information is protected by the Federal Confidentiality of Alcohol and Drug Abuse Patient Records regulations: The Federal rules restrict any use of the information to criminally investigate or prosecute any alcohol or drug abuse patient.[facility] ShawIn the event this information is protected by the Federal Confidentiality of Alcohol and Drug Abuse Patient Records regulations: The Federal rules restrict any use of the information to criminally investigate or prosecute any alcohol or drug abuse patient.[facility] ShawIn the event this information is protected by the Federal Confidentiality of Alcohol and Drug Abuse Patient Records regulations: The Federal rules restrict any use of the information to criminally investigate or prosecute any alcohol or drug abuse patient.[facility] ShawIn the event this information is protected by the Federal Confidentiality of Alcohol and Drug Abuse Patient Records regulations: The Federal rules restrict any use of the information to criminally investigate or prosecute any alcohol or drug abuse patient.[facility] ShawIn the event this information is protected by the Federal Confidentiality of Alcohol and Drug Abuse Patient Records regulations: The Federal rules restrict any use of the information to criminally investigate or prosecute any alcohol or drug abuse patient.[facility] ShawIn the event this information is protected by the Federal Confidentiality of Alcohol and Drug Abuse Patient Records regulations: The Federal rules restrict any use of the information to criminally investigate or prosecute any alcohol or drug abuse patient.[facility] ShawIn the event this information is protected by the Federal Confidentiality of Alcohol and Drug Abuse Patient Records regulations: The Federal rules restrict any use of the information to criminally investigate or prosecute any alcohol or drug abuse patient.[facility] ShawIn the event this information is protected by the Federal Confidentiality of Alcohol and Drug Abuse Patient Records regulations: The Federal rules restrict any use of the information to criminally investigate or prosecute any alcohol or drug abuse patient.[facility] ShawIn the event this information is protected by the Federal Confidentiality of Alcohol and Drug Abuse Patient Records regulations: The Federal rules restrict any use of the information to criminally investigate or prosecute any alcohol or drug abuse patient.[facility] ShawIn the event this information is protected by the Federal Confidentiality of Alcohol and Drug Abuse Patient Records regulations: The Federal rules restrict any use of the information to criminally investigate or prosecute any alcohol or drug abuse patient.[facility] ShawIn the event this information is protected by the Federal Confidentiality of Alcohol and Drug Abuse Patient Records regulations: The Federal rules restrict any use of the information to criminally investigate or prosecute any alcohol or drug abuse patient.[facility] ShawIn the event this information is protected by the Federal Confidentiality of Alcohol and Drug Abuse Patient Records regulations: The Federal rules restrict any use of the information to criminally investigate or prosecute any alcohol or drug abuse patient.[facility] ShawIn the event this information is protected by the Federal Confidentiality of Alcohol and Drug Abuse Patient Records regulations: The Federal rules restrict any use of the information to criminally investigate or prosecute any alcohol or drug abuse patient.[facility] ShawIn the event this information is protected by the Federal Confidentiality of Alcohol and Drug Abuse Patient Records regulations: The Federal rules restrict any use of the information to criminally investigate or prosecute any alcohol or drug abuse patient.[facility] ShawIn the event this information is protected by the Federal Confidentiality of Alcohol and Drug Abuse Patient Records regulations: The Federal rules restrict any use of the information to criminally investigate or prosecute any alcohol or drug abuse patient.[facility] ShawIn the event this information is protected by the Federal Confidentiality of Alcohol and Drug Abuse Patient Records regulations: The Federal rules restrict any use of the information to criminally investigate or prosecute any alcohol or drug abuse patient.[facility] ShawIn the event this information is protected by the Federal Confidentiality of Alcohol and Drug Abuse Patient Records regulations: The Federal rules restrict any use of the information to criminally investigate or prosecute any alcohol or drug abuse patient.[facility] ShawIn the event this information is protected by the Federal Confidentiality of Alcohol and Drug Abuse Patient Records regulations: The Federal rules restrict any use of the information to criminally investigate or prosecute any alcohol or drug abuse patient.[facility] ShawIn the event this information is protected by the Federal Confidentiality of Alcohol and Drug Abuse Patient Records regulations: The Federal rules restrict any use of the information to criminally investigate or prosecute any alcohol or drug abuse patient.[facility] ShawIn the event this information is protected by the Federal Confidentiality of Alcohol and Drug Abuse Patient Records regulations: The Federal rules restrict any use of the information to criminally investigate or prosecute any alcohol or drug abuse patient.[facility] ShawIn the event this information is protected by the Federal Confidentiality of Alcohol and Drug Abuse Patient Records regulations: The Federal rules restrict any use of the information to criminally investigate or prosecute any alcohol or drug abuse patient.[facility] ShawIn the event this information is protected by the Federal Confidentiality of Alcohol and Drug Abuse Patient Records regulations: The Federal rules restrict any use of the information to criminally investigate or prosecute any alcohol or drug abuse patient.[facility] ShawIn the event this information is protected by the Federal Confidentiality of Alcohol and Drug Abuse Patient Records regulations: The Federal rules restrict any use of the information to criminally investigate or prosecute any alcohol or drug abuse patient.[facility] ShawIn the event this information is protected by the Federal Confidentiality of Alcohol and Drug Abuse Patient Records regulations: The Federal rules restrict any use of the information to criminally investigate or prosecute any alcohol or drug abuse patient.[facility] ShawIn the event this information is protected by the Federal Confidentiality of Alcohol and Drug Abuse Patient Records regulations: The Federal rules restrict any use of the information to criminally investigate or prosecute any alcohol or drug abuse patient.[facility], [facility] ShawIn the event this information is protected by the Federal Confidentiality of Alcohol and Drug Abuse Patient Records regulations: The Federal rules restrict any use of the information to criminally investigate or prosecute any alcohol or drug abuse patient.[facility], [facility] ShawIn the event this information is protected by the Federal Confidentiality of Alcohol and Drug Abuse Patient Records regulations: The Federal rules restrict any use of the information to criminally investigate or prosecute any alcohol or drug abuse patient.[facility], [facility] ShawIn the event this information is protected by the Federal Confidentiality of Alcohol and Drug Abuse Patient Records regulations: The Federal rules restrict any use of the information to criminally investigate or prosecute any alcohol or drug abuse patient.[facility], [facility] ShawIn the event this information is protected by the Federal Confidentiality of Alcohol and Drug Abuse Patient Records regulations: The Federal rules restrict any use of the information to criminally investigate or prosecute any alcohol or drug abuse patient.[facility], [facility] ShawIn the event this information is protected by the Federal Confidentiality of Alcohol and Drug Abuse Patient Records regulations: The Federal rules restrict any use of the information to criminally investigate or prosecute any alcohol or drug abuse patient.[facility], [facility] ShawIn the event this information is protected by the Federal Confidentiality of Alcohol and Drug Abuse Patient Records regulations: The Federal rules restrict any use of the information to criminally investigate or prosecute any alcohol or drug abuse patient.[facility], [facility] ShawIn the event this information is protected by the Federal Confidentiality of Alcohol and Drug Abuse Patient Records regulations: The Federal rules restrict any use of the information to criminally investigate or prosecute any alcohol or drug abuse patient.[facility], [facility] ShawIn the event this information is protected by the Federal Confidentiality of Alcohol and Drug Abuse Patient Records regulations: The Federal rules restrict any use of the information to criminally investigate or prosecute any alcohol or drug abuse patient.[facility], [facility] ShawIn the event this information is protected by the Federal Confidentiality of Alcohol and Drug Abuse Patient Records regulations: The Federal rules restrict any use of the information to criminally investigate or prosecute any alcohol or drug abuse patient.[facility] ShawIn the event this information is protected by the Federal Confidentiality of Alcohol and Drug Abuse Patient Records regulations: The Federal rules restrict any use of the information to criminally investigate or prosecute any alcohol or drug abuse patient.[facility] ShawIn the event this information is protected by the Federal Confidentiality of Alcohol and Drug Abuse Patient Records regulations: The Federal rules restrict any use of the information to criminally investigate or prosecute any alcohol or drug abuse patient.[facility] ShawIn the event this information is protected by the Federal Confidentiality of Alcohol and Drug Abuse Patient Records regulations: The Federal rules restrict any use of the information to criminally investigate or prosecute any alcohol or drug abuse patient.[facility] ShawIn the event this information is protected by the Federal Confidentiality of Alcohol and Drug Abuse Patient Records regulations: The Federal rules restrict any use of the information to criminally investigate or prosecute any alcohol or drug abuse patient.[facility], [facility] ShawIn the event this information is protected by the Federal Confidentiality of Alcohol and Drug Abuse Patient Records regulations: The Federal rules restrict any use of the information to criminally investigate or prosecute any alcohol or drug abuse patient.[facility] ShawIn the event this information is protected by the Federal Confidentiality of Alcohol and Drug Abuse Patient Records regulations: The Federal rules restrict any use of the information to criminally investigate or prosecute any alcohol or drug abuse patient.[facility] ShawIn the event this information is protected by the Federal Confidentiality of Alcohol and Drug Abuse Patient Records regulations: The Federal rules restrict any use of the information to criminally investigate or prosecute any alcohol or drug abuse patient.[facility] ShawIn the event this information is protected by the Federal Confidentiality of Alcohol and Drug Abuse Patient Records regulations: The Federal rules restrict any use of the information to criminally investigate or prosecute any alcohol or drug abuse patient.[facility] ShawIn the event this information is protected by the Federal Confidentiality of Alcohol and Drug Abuse Patient Records regulations: The Federal rules restrict any use of the information to criminally investigate or prosecute any alcohol or drug abuse patient.[facility] ShawIn the event this information is protected by the Federal Confidentiality of Alcohol and Drug Abuse Patient Records regulations: The Federal rules restrict any use of the information to criminally investigate or prosecute any alcohol or drug abuse patient.[facility] ShawIn the event this information is protected by the Federal Confidentiality of Alcohol and Drug Abuse Patient Records regulations: The Federal rules restrict any use of the information to criminally investigate or prosecute any alcohol or drug abuse patient.[facility] ShawIn the event this information is protected by the Federal Confidentiality of Alcohol and Drug Abuse Patient Records regulations: The Federal rules restrict any use of the information to criminally investigate or prosecute any alcohol or drug abuse patient.[facility] ShawIn the event this information is protected by the Federal Confidentiality of Alcohol and Drug Abuse Patient Records regulations: The Federal rules restrict any use of the information to criminally investigate or prosecute any alcohol or drug abuse patient.[facility] ShawIn the event this information is protected by the Federal Confidentiality of Alcohol and Drug Abuse Patient Records regulations: The Federal rules restrict any use of the information to criminally investigate or prosecute any alcohol or drug abuse patient.[facility] ShawIn the event this information is protected by the Federal Confidentiality of Alcohol and Drug Abuse Patient Records regulations: The Federal rules restrict any use of the information to criminally investigate or prosecute any alcohol or drug abuse patient.[facility] ShawIn the event this information is protected by the Federal Confidentiality of Alcohol and Drug Abuse Patient Records regulations: The Federal rules restrict any use of the information to criminally investigate or prosecute any alcohol or drug abuse patient.[facility] ShawIn the event this information is protected by the Federal Confidentiality of Alcohol and Drug Abuse Patient Records regulations: The Federal rules restrict any use of the information to criminally investigate or prosecute any alcohol or drug abuse patient.[facility] ShawIn the event this information is protected by the Federal Confidentiality of Alcohol and Drug Abuse Patient Records regulations: The Federal rules restrict any use of the information to criminally investigate or prosecute any alcohol or drug abuse patient.[facility] ShawIn the event this information is protected by the Federal Confidentiality of Alcohol and Drug Abuse Patient Records regulations: The Federal rules restrict any use of the information to criminally investigate or prosecute any alcohol or drug abuse patient.[facility] ShawIn the event this information is protected by the Federal Confidentiality of Alcohol and Drug Abuse Patient Records regulations: The Federal rules restrict any use of the information to criminally investigate or prosecute any alcohol or drug abuse patient.[facility] ShawIn the event this information is protected by the Federal Confidentiality of Alcohol and Drug Abuse Patient Records regulations: The Federal rules restrict any use of the information to criminally investigate or prosecute any alcohol or drug abuse patient.[facility] ShawIn the event this information is protected by the Federal Confidentiality of Alcohol and Drug Abuse Patient Records regulations: The Federal rules restrict any use of the information to criminally investigate or prosecute any alcohol or drug abuse patient.[facility] ShawIn the event this information is protected by the Federal Confidentiality of Alcohol and Drug Abuse Patient Records regulations: The Federal rules restrict any use of the information to criminally investigate or prosecute any alcohol or drug abuse patient.[facility] ShawIn the event this information is protected by the Federal Confidentiality of Alcohol and Drug Abuse Patient Records regulations: The Federal rules restrict any use of the information to criminally investigate or prosecute any alcohol or drug abuse patient.[facility] ShawIn the event this information is protected by the Federal Confidentiality of Alcohol and Drug Abuse Patient Records regulations: The Federal rules restrict any use of the information to criminally investigate or prosecute any alcohol or drug abuse patient.[facility] ShawIn the event this information is protected by the Federal Confidentiality of Alcohol and Drug Abuse Patient Records regulations: The Federal rules restrict any use of the information to criminally investigate or prosecute any alcohol or drug abuse patient.[facility] ShawIn the event this information is protected by the Federal Confidentiality of Alcohol and Drug Abuse Patient Records regulations: The Federal rules restrict any use of the information to criminally investigate or prosecute any alcohol or drug abuse patient.[facility] ShawIn the event this information is protected by the Federal Confidentiality of Alcohol and Drug Abuse Patient Records regulations: The Federal rules restrict any use of the information to criminally investigate or prosecute any alcohol or drug abuse patient.[facility] ShawIn the event this information is protected by the Federal Confidentiality of Alcohol and Drug Abuse Patient Records regulations: The Federal rules restrict any use of the information to criminally investigate or prosecute any alcohol or drug abuse patient.[facility] ShawIn the event this information is protected by the Federal Confidentiality of Alcohol and Drug Abuse Patient Records regulations: The Federal rules restrict any use of the information to criminally investigate or prosecute any alcohol or drug abuse patient.[facility] ShawIn the event this information is protected by the Federal Confidentiality of Alcohol and Drug Abuse Patient Records regulations: The Federal rules restrict any use of the information to criminally investigate or prosecute any alcohol or drug abuse patient.[facility] ShawIn the event this information is protected by the Federal Confidentiality of Alcohol and Drug Abuse Patient Records regulations: The Federal rules restrict any use of the information to criminally investigate or prosecute any alcohol or drug abuse patient.[facility] ShawIn the event this information is protected by the Federal Confidentiality of Alcohol and Drug Abuse Patient Records regulations: The Federal rules restrict any use of the information to criminally investigate or prosecute any alcohol or drug abuse patient.[facility] ShawIn the event this information is protected by the Federal Confidentiality of Alcohol and Drug Abuse Patient Records regulations: The Federal rules restrict any use of the information to criminally investigate or prosecute any alcohol or drug abuse patient.[facility] ShawIn the event this information is protected by the Federal Confidentiality of Alcohol and Drug Abuse Patient Records regulations: The Federal rules restrict any use of the information to criminally investigate or prosecute any alcohol or drug abuse patient.[facility] ShawIn the event this information is protected by the Federal Confidentiality of Alcohol and Drug Abuse Patient Records regulations: The Federal rules restrict any use of the information to criminally investigate or prosecute any alcohol or drug abuse patient.[facility] ShawIn the event this information is protected by the Federal Confidentiality of Alcohol and Drug Abuse Patient Records regulations: The Federal rules restrict any use of the information to criminally investigate or prosecute any alcohol or drug abuse patient.[facility] ShawIn the event this information is protected by the Federal Confidentiality of Alcohol and Drug Abuse Patient Records regulations: The Federal rules restrict any use of the information to criminally investigate or prosecute any alcohol or drug abuse patient.[facility] ShawIn the event this information is protected by the Federal Confidentiality of Alcohol and Drug Abuse Patient Records regulations: The Federal rules restrict any use of the information to criminally investigate or prosecute any alcohol or drug abuse patient.[facility] ShawIn the event this information is protected by the Federal Confidentiality of Alcohol and Drug Abuse Patient Records regulations: The Federal rules restrict any use of the information to criminally investigate or prosecute any alcohol or drug abuse patient.[facility] ShawIn the event this information is protected by the Federal Confidentiality of Alcohol and Drug Abuse Patient Records regulations: The Federal rules restrict any use of the information to criminally investigate or prosecute any alcohol or drug abuse patient.[facility] ShawIn the event this information is protected by the Federal Confidentiality of Alcohol and Drug Abuse Patient Records regulations: The Federal rules restrict any use of the information to criminally investigate or prosecute any alcohol or drug abuse patient.[facility] ShawIn the event this information is protected by the Federal Confidentiality of Alcohol and Drug Abuse Patient Records regulations: The Federal rules restrict any use of the information to criminally investigate or prosecute any alcohol or drug abuse patient.[facility] ShawIn the event this information is protected by the Federal Confidentiality of Alcohol and Drug Abuse Patient Records regulations: The Federal rules restrict any use of the information to criminally investigate or prosecute any alcohol or drug abuse patient.[facility] ShawIn the event this information is protected by the Federal Confidentiality of Alcohol and Drug Abuse Patient Records regulations: The Federal rules restrict any use of the information to criminally investigate or prosecute any alcohol or drug abuse patient.[facility] ShawIn the event this information is protected by the Federal Confidentiality of Alcohol and Drug Abuse Patient Records regulations: The Federal rules restrict any use of the information to criminally investigate or prosecute any alcohol or drug abuse patient.[facility] ShawIn the event this information is protected by the Federal Confidentiality of Alcohol and Drug Abuse Patient Records regulations: The Federal rules restrict any use of the information to criminally investigate or prosecute any alcohol or drug abuse patient.[facility] ShawIn the event this information is protected by the Federal Confidentiality of Alcohol and Drug Abuse Patient Records regulations: The Federal rules restrict any use of the information to criminally investigate or prosecute any alcohol or drug abuse patient.[facility] ShawIn the event this information is protected by the Federal Confidentiality of Alcohol and Drug Abuse Patient Records regulations: The Federal rules restrict any use of the information to criminally investigate or prosecute any alcohol or drug abuse patient.[facility] ShawIn the event this information is protected by the Federal Confidentiality of Alcohol and Drug Abuse Patient Records regulations: The Federal rules restrict any use of the information to criminally investigate or prosecute any alcohol or drug abuse patient.[facility] ShawIn the event this information is protected by the Federal Confidentiality of Alcohol and Drug Abuse Patient Records regulations: The Federal rules restrict any use of the information to criminally investigate or prosecute any alcohol or drug abuse patient.[facility] ShawIn the event this information is protected by the Federal Confidentiality of Alcohol and Drug Abuse Patient Records regulations: The Federal rules restrict any use of the information to criminally investigate or prosecute any alcohol or drug abuse patient.[facility] ShawIn the event this information is protected by the Federal Confidentiality of Alcohol and Drug Abuse Patient Records regulations: The Federal rules restrict any use of the information to criminally investigate or prosecute any alcohol or drug abuse patient.[facility] ShawIn the event this information is protected by the Federal Confidentiality of Alcohol and Drug Abuse Patient Records regulations: The Federal rules restrict any use of the information to criminally investigate or prosecute any alcohol or drug abuse patient.[facility] ShawIn the event this information is protected by the Federal Confidentiality of Alcohol and Drug Abuse Patient Records regulations: The Federal rules restrict any use of the information to criminally investigate or prosecute any alcohol or drug abuse patient.[facility] ShawIn the event this information is protected by the Federal Confidentiality of Alcohol and Drug Abuse Patient Records regulations: The Federal rules restrict any use of the information to criminally investigate or prosecute any alcohol or drug abuse patient.[facility] ShawIn the event this information is protected by the Federal Confidentiality of Alcohol and Drug Abuse Patient Records regulations: The Federal rules restrict any use of the information to criminally investigate or prosecute any alcohol or drug abuse patient.[facility] ShawIn the event this information is protected by the Federal Confidentiality of Alcohol and Drug Abuse Patient Records regulations: The Federal rules restrict any use of the information to criminally investigate or prosecute any alcohol or drug abuse patient.[facility] ShawIn the event this information is protected by the Federal Confidentiality of Alcohol and Drug Abuse Patient Records regulations: The Federal rules restrict any use of the information to criminally investigate or prosecute any alcohol or drug abuse patient.[facility] ShawIn the event this information is protected by the Federal Confidentiality of Alcohol and Drug Abuse Patient Records regulations: The Federal rules restrict any use of the information to criminally investigate or prosecute any alcohol or drug abuse patient.[facility] ShawIn the event this information is protected by the Federal Confidentiality of Alcohol and Drug Abuse Patient Records regulations: The Federal rules restrict any use of the information to criminally investigate or prosecute any alcohol or drug abuse patient.[facility] ShawIn the event this information is protected by the Federal Confidentiality of Alcohol and Drug Abuse Patient Records regulations: The Federal rules restrict any use of the information to criminally investigate or prosecute any alcohol or drug abuse patient.[facility] ShawIn the event this information is protected by the Federal Confidentiality of Alcohol and Drug Abuse Patient Records regulations: The Federal rules restrict any use of the information to criminally investigate or prosecute any alcohol or drug abuse patient.[facility] ShawIn the event this information is protected by the Federal Confidentiality of Alcohol and Drug Abuse Patient Records regulations: The Federal rules restrict any use of the information to criminally investigate or prosecute any alcohol or drug abuse patient.[facility], [facility] ShawIn the event this information is protected by the Federal Confidentiality of Alcohol and Drug Abuse Patient Records regulations: The Federal rules restrict any use of the information to criminally investigate or prosecute any alcohol or drug abuse patient.[facility] ShawIn the event this information is protected by the Federal Confidentiality of Alcohol and Drug Abuse Patient Records regulations: The Federal rules restrict any use of the information to criminally investigate or prosecute any alcohol or drug abuse patient.[facility], [facility] ShawIn the event this information is protected by the Federal Confidentiality of Alcohol and Drug Abuse Patient Records regulations: The Federal rules restrict any use of the information to criminally investigate or prosecute any alcohol or drug abuse patient.[facility], [facility] ShawIn the event this information is protected by the Federal Confidentiality of Alcohol and Drug Abuse Patient Records regulations: The Federal rules restrict any use of the information to criminally investigate or prosecute any alcohol or drug abuse patient.[facility] ShawIn the event this information is protected by the Federal Confidentiality of Alcohol and Drug Abuse Patient Records regulations: The Federal rules restrict any use of the information to criminally investigate or prosecute any alcohol or drug abuse patient.[facility] ShawIn the event this information is protected by the Federal Confidentiality of Alcohol and Drug Abuse Patient Records regulations: The Federal rules restrict any use of the information to criminally investigate or prosecute any alcohol or drug abuse patient.[facility] ShawIn the event this information is protected by the Federal Confidentiality of Alcohol and Drug Abuse Patient Records regulations: The Federal rules restrict any use of the information to criminally investigate or prosecute any alcohol or drug abuse patient.[facility] ShawIn the event this information is protected by the Federal Confidentiality of Alcohol and Drug Abuse Patient Records regulations: The Federal rules restrict any use of the information to criminally investigate or prosecute any alcohol or drug abuse patient.[facility] ShawIn the event this information is protected by the Federal Confidentiality of Alcohol and Drug Abuse Patient Records regulations: The Federal rules restrict any use of the information to criminally investigate or prosecute any alcohol or drug abuse patient.[facility] ShawIn the event this information is protected by the Federal Confidentiality of Alcohol and Drug Abuse Patient Records regulations: The Federal rules restrict any use of the information to criminally investigate or prosecute any alcohol or drug abuse patient.[facility] ShawIn the event this information is protected by the Federal Confidentiality of Alcohol and Drug Abuse Patient Records regulations: The Federal rules restrict any use of the information to criminally investigate or prosecute any alcohol or drug abuse patient.[facility] ShawIn the event this information is protected by the Federal Confidentiality of Alcohol and Drug Abuse Patient Records regulations: The Federal rules restrict any use of the information to criminally investigate or prosecute any alcohol or drug abuse patient.[facility] ShawIn the event this information is protected by the Federal Confidentiality of Alcohol and Drug Abuse Patient Records regulations: The Federal rules restrict any use of the information to criminally investigate or prosecute any alcohol or drug abuse patient.[facility] ShawIn the event this information is protected by the Federal Confidentiality of Alcohol and Drug Abuse Patient Records regulations: The Federal rules restrict any use of the information to criminally investigate or prosecute any alcohol or drug abuse patient.[facility] ShawIn the event this information is protected by the Federal Confidentiality of Alcohol and Drug Abuse Patient Records regulations: The Federal rules restrict any use of the information to criminally investigate or prosecute any alcohol or drug abuse patient.[facility] ShawIn the event this information is protected by the Federal Confidentiality of Alcohol and Drug Abuse Patient Records regulations: The Federal rules restrict any use of the information to criminally investigate or prosecute any alcohol or drug abuse patient.[facility] ShawIn the event this information is protected by the Federal Confidentiality of Alcohol and Drug Abuse Patient Records regulations: The Federal rules restrict any use of the information to criminally investigate or prosecute any alcohol or drug abuse patient.[facility] ShawIn the event this information is protected by the Federal Confidentiality of Alcohol and Drug Abuse Patient Records regulations: The Federal rules restrict any use of the information to criminally investigate or prosecute any alcohol or drug abuse patient.[facility] ShawIn the event this information is protected by the Federal Confidentiality of Alcohol and Drug Abuse Patient Records regulations: The Federal rules restrict any use of the information to criminally investigate or prosecute any alcohol or drug abuse patient.[facility] ShawIn the event this information is protected by the Federal Confidentiality of Alcohol and Drug Abuse Patient Records regulations: The Federal rules restrict any use of the information to criminally investigate or prosecute any alcohol or drug abuse patient.[facility] ShawIn the event this information is protected by the Federal Confidentiality of Alcohol and Drug Abuse Patient Records regulations: The Federal rules restrict any use of the information to criminally investigate or prosecute any alcohol or drug abuse patient.[facility] ShawIn the event this information is protected by the Federal Confidentiality of Alcohol and Drug Abuse Patient Records regulations: The Federal rules restrict any use of the information to criminally investigate or prosecute any alcohol or drug abuse patient.[facility] ShawIn the event this information is protected by the Federal Confidentiality of Alcohol and Drug Abuse Patient Records regulations: The Federal rules restrict any use of the information to criminally investigate or prosecute any alcohol or drug abuse patient.[facility] ShawIn the event this information is protected by the Federal Confidentiality of Alcohol and Drug Abuse Patient Records regulations: The Federal rules restrict any use of the information to criminally investigate or prosecute any alcohol or drug abuse patient.[facility] ShawIn the event this information is protected by the Federal Confidentiality of Alcohol and Drug Abuse Patient Records regulations: The Federal rules restrict any use of the information to criminally investigate or prosecute any alcohol or drug abuse patient.[facility] ShawIn the event this information is protected by the Federal Confidentiality of Alcohol and Drug Abuse Patient Records regulations: The Federal rules restrict any use of the information to criminally investigate or prosecute any alcohol or drug abuse patient.[facility] ShawIn the event this information is protected by the Federal Confidentiality of Alcohol and Drug Abuse Patient Records regulations: The Federal rules restrict any use of the information to criminally investigate or prosecute any alcohol or drug abuse patient.[facility] ShawIn the event this information is protected by the Federal Confidentiality of Alcohol and Drug Abuse Patient Records regulations: The Federal rules restrict any use of the information to criminally investigate or prosecute any alcohol or drug abuse patient.[facility] ShawIn the event this information is protected by the Federal Confidentiality of Alcohol and Drug Abuse Patient Records regulations: The Federal rules restrict any use of the information to criminally investigate or prosecute any alcohol or drug abuse patient.[facility] ShawIn the event this information is protected by the Federal Confidentiality of Alcohol and Drug Abuse Patient Records regulations: The Federal rules restrict any use of the information to criminally investigate or prosecute any alcohol or drug abuse patient.[facility] ShawIn the event this information is protected by the Federal Confidentiality of Alcohol and Drug Abuse Patient Records regulations: The Federal rules restrict any use of the information to criminally investigate or prosecute any alcohol or drug abuse patient.[facility] ShawIn the event this information is protected by the Federal Confidentiality of Alcohol and Drug Abuse Patient Records regulations: The Federal rules restrict any use of the information to criminally investigate or prosecute any alcohol or drug abuse patient.[facility] ShawIn the event this information is protected by the Federal Confidentiality of Alcohol and Drug Abuse Patient Records regulations: The Federal rules restrict any use of the information to criminally investigate or prosecute any alcohol or drug abuse patient.[facility] ShawIn the event this information is protected by the Federal Confidentiality of Alcohol and Drug Abuse Patient Records regulations: The Federal rules restrict any use of the information to criminally investigate or prosecute any alcohol or drug abuse patient.[facility] ShawIn the event this information is protected by the Federal Confidentiality of Alcohol and Drug Abuse Patient Records regulations: The Federal rules restrict any use of the information to criminally investigate or prosecute any alcohol or drug abuse patient.[facility] ShawIn the event this information is protected by the Federal Confidentiality of Alcohol and Drug Abuse Patient Records regulations: The Federal rules restrict any use of the information to criminally investigate or prosecute any alcohol or drug abuse patient.[facility] ShawIn the event this information is protected by the Federal Confidentiality of Alcohol and Drug Abuse Patient Records regulations: The Federal rules restrict any use of the information to criminally investigate or prosecute any alcohol or drug abuse patient.[facility] ShawIn the event this information is protected by the Federal Confidentiality of Alcohol and Drug Abuse Patient Records regulations: The Federal rules restrict any use of the information to criminally investigate or prosecute any alcohol or drug abuse patient.[facility] ShawIn the event this information is protected by the Federal Confidentiality of Alcohol and Drug Abuse Patient Records regulations: The Federal rules restrict any use of the information to criminally investigate or prosecute any alcohol or drug abuse patient.[facility] ShawIn the event this information is protected by the Federal Confidentiality of Alcohol and Drug Abuse Patient Records regulations: The Federal rules restrict any use of the information to criminally investigate or prosecute any alcohol or drug abuse patient.[facility] ShawIn the event this information is protected by the Federal Confidentiality of Alcohol and Drug Abuse Patient Records regulations: The Federal rules restrict any use of the information to criminally investigate or prosecute any alcohol or drug abuse patient.[facility] ShawIn the event this information is protected by the Federal Confidentiality of Alcohol and Drug Abuse Patient Records regulations: The Federal rules restrict any use of the information to criminally investigate or prosecute any alcohol or drug abuse patient.[facility] ShawIn the event this information is protected by the Federal Confidentiality of Alcohol and Drug Abuse Patient Records regulations: The Federal rules restrict any use of the information to criminally investigate or prosecute any alcohol or drug abuse patient.[facility] ShawIn the event this information is protected by the Federal Confidentiality of Alcohol and Drug Abuse Patient Records regulations: The Federal rules restrict any use of the information to criminally investigate or prosecute any alcohol or drug abuse patient.[facility] ShawIn the event this information is protected by the Federal Confidentiality of Alcohol and Drug Abuse Patient Records regulations: The Federal rules restrict any use of the information to criminally investigate or prosecute any alcohol or drug abuse patient.[facility] ShawIn the event this information is protected by the Federal Confidentiality of Alcohol and Drug Abuse Patient Records regulations: The Federal rules restrict any use of the information to criminally investigate or prosecute any alcohol or drug abuse patient.[facility] ShawIn the event this information is protected by the Federal Confidentiality of Alcohol and Drug Abuse Patient Records regulations: The Federal rules restrict any use of the information to criminally investigate or prosecute any alcohol or drug abuse patient.[facility] ShawIn the event this information is protected by the Federal Confidentiality of Alcohol and Drug Abuse Patient Records regulations: The Federal rules restrict any use of the information to criminally investigate or prosecute any alcohol or drug abuse patient.[facility] ShawIn the event this information is protected by the Federal Confidentiality of Alcohol and Drug Abuse Patient Records regulations: The Federal rules restrict any use of the information to criminally investigate or prosecute any alcohol or drug abuse patient.[facility] ShawIn the event this information is protected by the Federal Confidentiality of Alcohol and Drug Abuse Patient Records regulations: The Federal rules restrict any use of the information to criminally investigate or prosecute any alcohol or drug abuse patient.[facility] ShawIn the event this information is protected by the Federal Confidentiality of Alcohol and Drug Abuse Patient Records regulations: The Federal rules restrict any use of the information to criminally investigate or prosecute any alcohol or drug abuse patient.[facility] ShawIn the event this information is protected by the Federal Confidentiality of Alcohol and Drug Abuse Patient Records regulations: The Federal rules restrict any use of the information to criminally investigate or prosecute any alcohol or drug abuse patient.[facility] ShawIn the event this information is protected by the Federal Confidentiality of Alcohol and Drug Abuse Patient Records regulations: The Federal rules restrict any use of the information to criminally investigate or prosecute any alcohol or drug abuse patient.[facility] ShawIn the event this information is protected by the Federal Confidentiality of Alcohol and Drug Abuse Patient Records regulations: The Federal rules restrict any use of the information to criminally investigate or prosecute any alcohol or drug abuse patient.[facility] ShawIn the event this information is protected by the Federal Confidentiality of Alcohol and Drug Abuse Patient Records regulations: The Federal rules restrict any use of the information to criminally investigate or prosecute any alcohol or drug abuse patient.[facility] ShawIn the event this information is protected by the Federal Confidentiality of Alcohol and Drug Abuse Patient Records regulations: The Federal rules restrict any use of the information to criminally investigate or prosecute any alcohol or drug abuse patient.[facility] ShawIn the event this information is protected by the Federal Confidentiality of Alcohol and Drug Abuse Patient Records regulations: The Federal rules restrict any use of the information to criminally investigate or prosecute any alcohol or drug abuse patient.[facility] ShawIn the event this information is protected by the Federal Confidentiality of Alcohol and Drug Abuse Patient Records regulations: The Federal rules restrict any use of the information to criminally investigate or prosecute any alcohol or drug abuse patient.[facility] ShawIn the event this information is protected by the Federal Confidentiality of Alcohol and Drug Abuse Patient Records regulations: The Federal rules restrict any use of the information to criminally investigate or prosecute any alcohol or drug abuse patient.[facility] ShawIn the event this information is protected by the Federal Confidentiality of Alcohol and Drug Abuse Patient Records regulations: The Federal rules restrict any use of the information to criminally investigate or prosecute any alcohol or drug abuse patient.[facility] ShawIn the event this information is protected by the Federal Confidentiality of Alcohol and Drug Abuse Patient Records regulations: The Federal rules restrict any use of the information to criminally investigate or prosecute any alcohol or drug abuse patient.[facility] ShawIn the event this information is protected by the Federal Confidentiality of Alcohol and Drug Abuse Patient Records regulations: The Federal rules restrict any use of the information to criminally investigate or prosecute any alcohol or drug abuse patient.[facility] ShawIn the event this information is protected by the Federal Confidentiality of Alcohol and Drug Abuse Patient Records regulations: The Federal rules restrict any use of the information to criminally investigate or prosecute any alcohol or drug abuse patient.[facility] ShawIn the event this information is protected by the Federal Confidentiality of Alcohol and Drug Abuse Patient Records regulations: The Federal rules restrict any use of the information to criminally investigate or prosecute any alcohol or drug abuse patient.[facility] ShawIn the event this information is protected by the Federal Confidentiality of Alcohol and Drug Abuse Patient Records regulations: The Federal rules restrict any use of the information to criminally investigate or prosecute any alcohol or drug abuse patient.[facility] ShawIn the event this information is protected by the Federal Confidentiality of Alcohol and Drug Abuse Patient Records regulations: The Federal rules restrict any use of the information to criminally investigate or prosecute any alcohol or drug abuse patient.[facility] ShawIn the event this information is protected by the Federal Confidentiality of Alcohol and Drug Abuse Patient Records regulations: The Federal rules restrict any use of the information to criminally investigate or prosecute any alcohol or drug abuse patient.[facility] ShawIn the event this information is protected by the Federal Confidentiality of Alcohol and Drug Abuse Patient Records regulations: The Federal rules restrict any use of the information to criminally investigate or prosecute any alcohol or drug abuse patient.[facility] ShawIn the event this information is protected by the Federal Confidentiality of Alcohol and Drug Abuse Patient Records regulations: The Federal rules restrict any use of the information to criminally investigate or prosecute any alcohol or drug abuse patient.[facility] ShawIn the event this information is protected by the Federal Confidentiality of Alcohol and Drug Abuse Patient Records regulations: The Federal rules restrict any use of the information to criminally investigate or prosecute any alcohol or drug abuse patient.[facility] ShawIn the event this information is protected by the Federal Confidentiality of Alcohol and Drug Abuse Patient Records regulations: The Federal rules restrict any use of the information to criminally investigate or prosecute any alcohol or drug abuse patient.[facility] ShawIn the event this information is protected by the Federal Confidentiality of Alcohol and Drug Abuse Patient Records regulations: The Federal rules restrict any use of the information to criminally investigate or prosecute any alcohol or drug abuse patient.[facility] ShawIn the event this information is protected by the Federal Confidentiality of Alcohol and Drug Abuse Patient Records regulations: The Federal rules restrict any use of the information to criminally investigate or prosecute any alcohol or drug abuse patient.[facility] ShawIn the event this information is protected by the Federal Confidentiality of Alcohol and Drug Abuse Patient Records regulations: The Federal rules restrict any use of the information to criminally investigate or prosecute any alcohol or drug abuse patient.[facility] ShawIn the event this information is protected by the Federal Confidentiality of Alcohol and Drug Abuse Patient Records regulations: The Federal rules restrict any use of the information to criminally investigate or prosecute any alcohol or drug abuse patient.[facility] ShawIn the event this information is protected by the Federal Confidentiality of Alcohol and Drug Abuse Patient Records regulations: The Federal rules restrict any use of the information to criminally investigate or prosecute any alcohol or drug abuse patient.[facility], [facility] ShawIn the event this information is protected by the Federal Confidentiality of Alcohol and Drug Abuse Patient Records regulations: The Federal rules restrict any use of the information to criminally investigate or prosecute any alcohol or drug abuse patient.[facility], [facility] ShawIn the event this information is protected by the Federal Confidentiality of Alcohol and Drug Abuse Patient Records regulations: The Federal rules restrict any use of the information to criminally investigate or prosecute any alcohol or drug abuse patient.[facility], [facility] ShawIn the event this information is protected by the Federal Confidentiality of Alcohol and Drug Abuse Patient Records regulations: The Federal rules restrict any use of the information to criminally investigate or prosecute any alcohol or drug abuse patient.[facility], [facility] ShawIn the event this information is protected by the Federal Confidentiality of Alcohol and Drug Abuse Patient Records regulations: The Federal rules restrict any use of the information to criminally investigate or prosecute any alcohol or drug abuse patient.[facility], [facility] ShawIn the event this information is protected by the Federal Confidentiality of Alcohol and Drug Abuse Patient Records regulations: The Federal rules restrict any use of the information to criminally investigate or prosecute any alcohol or drug abuse patient.[facility], [facility] ShawIn the event this information is protected by the Federal Confidentiality of Alcohol and Drug Abuse Patient Records regulations: The Federal rules restrict any use of the information to criminally investigate or prosecute any alcohol or drug abuse patient.[facility], [facility] ShawIn the event this information is protected by the Federal Confidentiality of Alcohol and Drug Abuse Patient Records regulations: The Federal rules restrict any use of the information to criminally investigate or prosecute any alcohol or drug abuse patient.[facility], [facility] ShawIn the event this information is protected by the Federal Confidentiality of Alcohol and Drug Abuse Patient Records regulations: The Federal rules restrict any use of the information to criminally investigate or prosecute any alcohol or drug abuse patient.[facility], [facility] ShawIn the event this information is protected by the Federal Confidentiality of Alcohol and Drug Abuse Patient Records regulations: The Federal rules restrict any use of the information to criminally investigate or prosecute any alcohol or drug abuse patient.[facility] ShawIn the event this information is protected by the Federal Confidentiality of Alcohol and Drug Abuse Patient Records regulations: The Federal rules restrict any use of the information to criminally investigate or prosecute any alcohol or drug abuse patient.[facility] ShawIn the event this information is protected by the Federal Confidentiality of Alcohol and Drug Abuse Patient Records regulations: The Federal rules restrict any use of the information to criminally investigate or prosecute any alcohol or drug abuse patient.[facility] ShawIn the event this information is protected by the Federal Confidentiality of Alcohol and Drug Abuse Patient Records regulations: The Federal rules restrict any use of the information to criminally investigate or prosecute any alcohol or drug abuse patient.[facility] ShawIn the event this information is protected by the Federal Confidentiality of Alcohol and Drug Abuse Patient Records regulations: The Federal rules restrict any use of the information to criminally investigate or prosecute any alcohol or drug abuse patient.[facility], [facility] ShawIn the event this information is protected by the Federal Confidentiality of Alcohol and Drug Abuse Patient Records regulations: The Federal rules restrict any use of the information to criminally investigate or prosecute any alcohol or drug abuse patient.[facility], [facility] ShawIn the event this information is protected by the Federal Confidentiality of Alcohol and Drug Abuse Patient Records regulations: The Federal rules restrict any use of the information to criminally investigate or prosecute any alcohol or drug abuse patient.[facility] ShawIn the event this information is protected by the Federal Confidentiality of Alcohol and Drug Abuse Patient Records regulations: The Federal rules restrict any use of the information to criminally investigate or prosecute any alcohol or drug abuse patient.[facility] ShawIn the event this information is protected by the Federal Confidentiality of Alcohol and Drug Abuse Patient Records regulations: The Federal rules restrict any use of the information to criminally investigate or prosecute any alcohol or drug abuse patient.[facility] ShawIn the event this information is protected by the Federal Confidentiality of Alcohol and Drug Abuse Patient Records regulations: The Federal rules restrict any use of the information to criminally investigate or prosecute any alcohol or drug abuse patient.[facility] ShawIn the event this information is protected by the Federal Confidentiality of Alcohol and Drug Abuse Patient Records regulations: The Federal rules restrict any use of the information to criminally investigate or prosecute any alcohol or drug abuse patient.[facility] ShawIn the event this information is protected by the Federal Confidentiality of Alcohol and Drug Abuse Patient Records regulations: The Federal rules restrict any use of the information to criminally investigate or prosecute any alcohol or drug abuse patient.[facility] ShawIn the event this information is protected by the Federal Confidentiality of Alcohol and Drug Abuse Patient Records regulations: The Federal rules restrict any use of the information to criminally investigate or prosecute any alcohol or drug abuse patient.[facility] ShawIn the event this information is protected by the Federal Confidentiality of Alcohol and Drug Abuse Patient Records regulations: The Federal rules restrict any use of the information to criminally investigate or prosecute any alcohol or drug abuse patient.[facility] ShawIn the event this information is protected by the Federal Confidentiality of Alcohol and Drug Abuse Patient Records regulations: The Federal rules restrict any use of the information to criminally investigate or prosecute any alcohol or drug abuse patient.[facility] ShawIn the event this information is protected by the Federal Confidentiality of Alcohol and Drug Abuse Patient Records regulations: The Federal rules restrict any use of the information to criminally investigate or prosecute any alcohol or drug abuse patient.[facility] ShawIn the event this information is protected by the Federal Confidentiality of Alcohol and Drug Abuse Patient Records regulations: The Federal rules restrict any use of the information to criminally investigate or prosecute any alcohol or drug abuse patient.[facility] ShawIn the event this information is protected by the Federal Confidentiality of Alcohol and Drug Abuse Patient Records regulations: The Federal rules restrict any use of the information to criminally investigate or prosecute any alcohol or drug abuse patient.[facility] ShawIn the event this information is protected by the Federal Confidentiality of Alcohol and Drug Abuse Patient Records regulations: The Federal rules restrict any use of the information to criminally investigate or prosecute any alcohol or drug abuse patient.[facility] ShawIn the event this information is protected by the Federal Confidentiality of Alcohol and Drug Abuse Patient Records regulations: The Federal rules restrict any use of the information to criminally investigate or prosecute any alcohol or drug abuse patient.[facility] ShawIn the event this information is protected by the Federal Confidentiality of Alcohol and Drug Abuse Patient Records regulations: The Federal rules restrict any use of the information to criminally investigate or prosecute any alcohol or drug abuse patient.[facility] ShawIn the event this information is protected by the Federal Confidentiality of Alcohol and Drug Abuse Patient Records regulations: The Federal rules restrict any use of the information to criminally investigate or prosecute any alcohol or drug abuse patient.[facility] ShawIn the event this information is protected by the Federal Confidentiality of Alcohol and Drug Abuse Patient Records regulations: The Federal rules restrict any use of the information to criminally investigate or prosecute any alcohol or drug abuse patient.[facility] ShawIn the event this information is protected by the Federal Confidentiality of Alcohol and Drug Abuse Patient Records regulations: The Federal rules restrict any use of the information to criminally investigate or prosecute any alcohol or drug abuse patient.[facility] ShawIn the event this information is protected by the Federal Confidentiality of Alcohol and Drug Abuse Patient Records regulations: The Federal rules restrict any use of the information to criminally investigate or prosecute any alcohol or drug abuse patient.[facility] ShawIn the event this information is protected by the Federal Confidentiality of Alcohol and Drug Abuse Patient Records regulations: The Federal rules restrict any use of the information to criminally investigate or prosecute any alcohol or drug abuse patient.[facility] ShawIn the event this information is protected by the Federal Confidentiality of Alcohol and Drug Abuse Patient Records regulations: The Federal rules restrict any use of the information to criminally investigate or prosecute any alcohol or drug abuse patient.[facility] ShawIn the event this information is protected by the Federal Confidentiality of Alcohol and Drug Abuse Patient Records regulations: The Federal rules restrict any use of the information to criminally investigate or prosecute any alcohol or drug abuse patient.[facility] ShawIn the event this information is protected by the Federal Confidentiality of Alcohol and Drug Abuse Patient Records regulations: The Federal rules restrict any use of the information to criminally investigate or prosecute any alcohol or drug abuse patient.[facility] ShawIn the event this information is protected by the Federal Confidentiality of Alcohol and Drug Abuse Patient Records regulations: The Federal rules restrict any use of the information to criminally investigate or prosecute any alcohol or drug abuse patient.[facility] ShawIn the event this information is protected by the Federal Confidentiality of Alcohol and Drug Abuse Patient Records regulations: The Federal rules restrict any use of the information to criminally investigate or prosecute any alcohol or drug abuse patient.[facility] ShawIn the event this information is protected by the Federal Confidentiality of Alcohol and Drug Abuse Patient Records regulations: The Federal rules restrict any use of the information to criminally investigate or prosecute any alcohol or drug abuse patient.[facility] ShawIn the event this information is protected by the Federal Confidentiality of Alcohol and Drug Abuse Patient Records regulations: The Federal rules restrict any use of the information to criminally investigate or prosecute any alcohol or drug abuse patient.[facility] ShawIn the event this information is protected by the Federal Confidentiality of Alcohol and Drug Abuse Patient Records regulations: The Federal rules restrict any use of the information to criminally investigate or prosecute any alcohol or drug abuse patient.[facility] ShawIn the event this information is protected by the Federal Confidentiality of Alcohol and Drug Abuse Patient Records regulations: The Federal rules restrict any use of the information to criminally investigate or prosecute any alcohol or drug abuse patient.[facility] ShawIn the event this information is protected by the Federal Confidentiality of Alcohol and Drug Abuse Patient Records regulations: The Federal rules restrict any use of the information to criminally investigate or prosecute any alcohol or drug abuse patient.[facility] ShawIn the event this information is protected by the Federal Confidentiality of Alcohol and Drug Abuse Patient Records regulations: The Federal rules restrict any use of the information to criminally investigate or prosecute any alcohol or drug abuse patient.[facility] ShawIn the event this information is protected by the Federal Confidentiality of Alcohol and Drug Abuse Patient Records regulations: The Federal rules restrict any use of the information to criminally investigate or prosecute any alcohol or drug abuse patient.[facility] ShawIn the event this information is protected by the Federal Confidentiality of Alcohol and Drug Abuse Patient Records regulations: The Federal rules restrict any use of the information to criminally investigate or prosecute any alcohol or drug abuse patient.[facility] ShawIn the event this information is protected by the Federal Confidentiality of Alcohol and Drug Abuse Patient Records regulations: The Federal rules restrict any use of the information to criminally investigate or prosecute any alcohol or drug abuse patient.[facility] ShawIn the event this information is protected by the Federal Confidentiality of Alcohol and Drug Abuse Patient Records regulations: The Federal rules restrict any use of the information to criminally investigate or prosecute any alcohol or drug abuse patient.[facility] ShawIn the event this information is protected by the Federal Confidentiality of Alcohol and Drug Abuse Patient Records regulations: The Federal rules restrict any use of the information to criminally investigate or prosecute any alcohol or drug abuse patient.[facility] ShawIn the event this information is protected by the Federal Confidentiality of Alcohol and Drug Abuse Patient Records regulations: The Federal rules restrict any use of the information to criminally investigate or prosecute any alcohol or drug abuse patient.[facility] ShawIn the event this information is protected by the Federal Confidentiality of Alcohol and Drug Abuse Patient Records regulations: The Federal rules restrict any use of the information to criminally investigate or prosecute any alcohol or drug abuse patient.[facility] ShawIn the event this information is protected by the Federal Confidentiality of Alcohol and Drug Abuse Patient Records regulations: The Federal rules restrict any use of the information to criminally investigate or prosecute any alcohol or drug abuse patient.[facility] ShawIn the event this information is protected by the Federal Confidentiality of Alcohol and Drug Abuse Patient Records regulations: The Federal rules restrict any use of the information to criminally investigate or prosecute any alcohol or drug abuse patient.[facility] ShawIn the event this information is protected by the Federal Confidentiality of Alcohol and Drug Abuse Patient Records regulations: The Federal rules restrict any use of the information to criminally investigate or prosecute any alcohol or drug abuse patient.[facility] ShawIn the event this information is protected by the Federal Confidentiality of Alcohol and Drug Abuse Patient Records regulations: The Federal rules restrict any use of the information to criminally investigate or prosecute any alcohol or drug abuse patient.[facility] ShawIn the event this information is protected by the Federal Confidentiality of Alcohol and Drug Abuse Patient Records regulations: The Federal rules restrict any use of the information to criminally investigate or prosecute any alcohol or drug abuse patient.[facility] ShawIn the event this information is protected by the Federal Confidentiality of Alcohol and Drug Abuse Patient Records regulations: The Federal rules restrict any use of the information to criminally investigate or prosecute any alcohol or drug abuse patient.[facility] ShawIn the event this information is protected by the Federal Confidentiality of Alcohol and Drug Abuse Patient Records regulations: The Federal rules restrict any use of the information to criminally investigate or prosecute any alcohol or drug abuse patient.[facility] ShawIn the event this information is protected by the Federal Confidentiality of Alcohol and Drug Abuse Patient Records regulations: The Federal rules restrict any use of the information to criminally investigate or prosecute any alcohol or drug abuse patient.[facility] ShawIn the event this information is protected by the Federal Confidentiality of Alcohol and Drug Abuse Patient Records regulations: The Federal rules restrict any use of the information to criminally investigate or prosecute any alcohol or drug abuse patient.[facility] ShawIn the event this information is protected by the Federal Confidentiality of Alcohol and Drug Abuse Patient Records regulations: The Federal rules restrict any use of the information to criminally investigate or prosecute any alcohol or drug abuse patient.[facility] ShawIn the event this information is protected by the Federal Confidentiality of Alcohol and Drug Abuse Patient Records regulations: The Federal rules restrict any use of the information to criminally investigate or prosecute any alcohol or drug abuse patient.[facility] ShawIn the event this information is protected by the Federal Confidentiality of Alcohol and Drug Abuse Patient Records regulations: The Federal rules restrict any use of the information to criminally investigate or prosecute any alcohol or drug abuse patient.[facility] ShawIn the event this information is protected by the Federal Confidentiality of Alcohol and Drug Abuse Patient Records regulations: The Federal rules restrict any use of the information to criminally investigate or prosecute any alcohol or drug abuse patient.[facility] ShawIn the event this information is protected by the Federal Confidentiality of Alcohol and Drug Abuse Patient Records regulations: The Federal rules restrict any use of the information to criminally investigate or prosecute any alcohol or drug abuse patient.[facility] ShawIn the event this information is protected by the Federal Confidentiality of Alcohol and Drug Abuse Patient Records regulations: The Federal rules restrict any use of the information to criminally investigate or prosecute any alcohol or drug abuse patient.[facility] ShawIn the event this information is protected by the Federal Confidentiality of Alcohol and Drug Abuse Patient Records regulations: The Federal rules restrict any use of the information to criminally investigate or prosecute any alcohol or drug abuse patient.[facility] ShawIn the event this information is protected by the Federal Confidentiality of Alcohol and Drug Abuse Patient Records regulations: The Federal rules restrict any use of the information to criminally investigate or prosecute any alcohol or drug abuse patient.[facility] ShawIn the event this information is protected by the Federal Confidentiality of Alcohol and Drug Abuse Patient Records regulations: The Federal rules restrict any use of the information to criminally investigate or prosecute any alcohol or drug abuse patient.[facility] ShawIn the event this information is protected by the Federal Confidentiality of Alcohol and Drug Abuse Patient Records regulations: The Federal rules restrict any use of the information to criminally investigate or prosecute any alcohol or drug abuse patient.[facility] ShawIn the event this information is protected by the Federal Confidentiality of Alcohol and Drug Abuse Patient Records regulations: The Federal rules restrict any use of the information to criminally investigate or prosecute any alcohol or drug abuse patient.[facility] ShawIn the event this information is protected by the Federal Confidentiality of Alcohol and Drug Abuse Patient Records regulations: The Federal rules restrict any use of the information to criminally investigate or prosecute any alcohol or drug abuse patient.[facility] ShawIn the event this information is protected by the Federal Confidentiality of Alcohol and Drug Abuse Patient Records regulations: The Federal rules restrict any use of the information to criminally investigate or prosecute any alcohol or drug abuse patient.[facility] ShawIn the event this information is protected by the Federal Confidentiality of Alcohol and Drug Abuse Patient Records regulations: The Federal rules restrict any use of the information to criminally investigate or prosecute any alcohol or drug abuse patient.[facility] ShawIn the event this information is protected by the Federal Confidentiality of Alcohol and Drug Abuse Patient Records regulations: The Federal rules restrict any use of the information to criminally investigate or prosecute any alcohol or drug abuse patient.[facility] ShawIn the event this information is protected by the Federal Confidentiality of Alcohol and Drug Abuse Patient Records regulations: The Federal rules restrict any use of the information to criminally investigate or prosecute any alcohol or drug abuse patient.[facility] ShawIn the event this information is protected by the Federal Confidentiality of Alcohol and Drug Abuse Patient Records regulations: The Federal rules restrict any use of the information to criminally investigate or prosecute any alcohol or drug abuse patient.[facility] ShawIn the event this information is protected by the Federal Confidentiality of Alcohol and Drug Abuse Patient Records regulations: The Federal rules restrict any use of the information to criminally investigate or prosecute any alcohol or drug abuse patient.[facility] ShawIn the event this information is protected by the Federal Confidentiality of Alcohol and Drug Abuse Patient Records regulations: The Federal rules restrict any use of the information to criminally investigate or prosecute any alcohol or drug abuse patient.[facility] ShawIn the event this information is protected by the Federal Confidentiality of Alcohol and Drug Abuse Patient Records regulations: The Federal rules restrict any use of the information to criminally investigate or prosecute any alcohol or drug abuse patient.[facility] ShawIn the event this information is protected by the Federal Confidentiality of Alcohol and Drug Abuse Patient Records regulations: The Federal rules restrict any use of the information to criminally investigate or prosecute any alcohol or drug abuse patient.[facility] ShawIn the event this information is protected by the Federal Confidentiality of Alcohol and Drug Abuse Patient Records regulations: The Federal rules restrict any use of the information to criminally investigate or prosecute any alcohol or drug abuse patient.[facility] ShawIn the event this information is protected by the Federal Confidentiality of Alcohol and Drug Abuse Patient Records regulations: The Federal rules restrict any use of the information to criminally investigate or prosecute any alcohol or drug abuse patient.[facility] ShawIn the event this information is protected by the Federal Confidentiality of Alcohol and Drug Abuse Patient Records regulations: The Federal rules restrict any use of the information to criminally investigate or prosecute any alcohol or drug abuse patient.[facility] ShawIn the event this information is protected by the Federal Confidentiality of Alcohol and Drug Abuse Patient Records regulations: The Federal rules restrict any use of the information to criminally investigate or prosecute any alcohol or drug abuse patient.[facility] ShawIn the event this information is protected by the Federal Confidentiality of Alcohol and Drug Abuse Patient Records regulations: The Federal rules restrict any use of the information to criminally investigate or prosecute any alcohol or drug abuse patient.[facility] Reason for Visit (unrecogniz ed section and content) ReasonCommentsLymphomaSpecialtyDiagnoses / ProceduresReferred By ContactReferred To ContactHematology / HEMATOLOGY/ONCOLOGY Diagnoses Follow-up exam 3 Month Lab Follow Up 12/24-R/S From 02/09 Called Spoke With Pt Regarding This Appt Procedures OFFICE/OUTPATIENT ESTABLISHED HIGH MDM 40 MIN EST PATIENT Self Ruperto Ledezma MD [address] [place] [address] [place] [address] Phone: tel: fax: Referral IDStatusReasonStart DateExpiration DateVisits RequestedVisits [id number]/1/202512/31/[id number] F/U SpecialtyDiagnoses / ProceduresReferred By ContactReferred To ContactPulmonary Disease / PULMONARY MEDICINE Diagnoses Follow up Procedures RI EST PULM GENERAL Self 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, LORY.TRAINING AND DEVELOPMENT DIRECTOR [address] [place] [address] Referral IDStatusReasonStart DateExpiration DateVisits RequestedVisits [id number]/28/202412/[id number] Follow-up SpecialtyDiagnoses / ProceduresReferred By ContactReferred To ContactRespiratory [place] / PULMONARY MEDICINE Diagnoses Pneumonia Pneumonia, [facility] Follow up, discharged on 04/04 Procedures RI EST PULM GENERAL Bee Vail MD [address] [facility] [place] [address] Carole Ruano, LORY.TRAINING AND DEVELOPMENT DIRECTOR [address] [place] [address] Referral IDStatusReasonStart DateExpiration DateVisits RequestedVisits [id number]/29/202412/[id number] sclerosis Hodgkin lymphoma of lymph nodes of multipSpecialtyDiagnoses / ProceduresReferred By ContactReferred To ContactHematology / HEMATOLOGY/ONCOLOGY Diagnoses 8 week lab Procedures EST PATIENT Bee Vail MD [address] [place] [address] Ruperto Ledezma MD [address] [place] [address] [address] [place] [address] Referral IDStatusReasonStart DateExpiration DateVisits RequestedVisits [id number]/27/202412/[id number]f Patient Pembro and follow upSpecialtyDiagnoses / ProceduresReferred By ContactReferred To ContactHematology/Oncology / HEMATOLOGY/ONCOLOGY Diagnoses OV ; TX after Procedures EST PATIENT Lamin Stevenson B [address] [place] [address] Sylvia Mancilla, ACCOUNT SERVICES ASSOCIATE.TRAINING AND DEVELOPMENT DIRECTOR [address] [place] [address] Referral IDStatusReasonStart DateExpiration DateVisits RequestedVisits [id number]/7/202212/[id number]wv TreatmentkeytrudaSpecialtyDiagnoses / ProceduresReferred By ContactReferred To Contact 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) Procedures [place] [address] [facility] [place] [address] [facility] [address] [address] [place] [address] Referral IDStatusReasonStart DateExpiration DateVisits RequestedVisits [id number]/23/20203/7/[id number] Request ReasonCommentsEstablished PatientPainAnxietyReasonCommentsChemotherapy Treatment SpecialtyDiagnoses / ProceduresReferred By ContactReferred To Contact 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) [place] [address] [facility] [place] [id number] [facility] [address] [address] [place] [address] Referral IDStatusReasonStart DateExpiration DateVisits RequestedVisits [id number]/23/20201/21/[id number] Coordinator - OtherReasonOnset DateCommentsRefill Bqxteqt25/30/2022ReasonCommentsCare Coordinationsinus symptomsReasonOnset DateCommentsRefill Sdxcsed83/19/2022Reason Onset DateCommentsRefill Bscjjxc50/28/2022ReasonOnset DateCommentsRefill Request 2SpecialtyDiagnoses / ProceduresReferred By ContactReferred To Contact 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) [place] [address] [place] [place] [address] [facility] [address] [address] [place] [address] ReasonOnset DateCommentsRefill Cfmffck15/24/2022ReasonCommentsLESION, SKINReason CommentsCare CoordinationPall med referralReasonOnset DateCommentsRefill Request 2ReasonOnset DateCommentsRefill Psvfalp98/13/2022ReasonOnset Date CommentsRefill Oooeooz60/16/2022ReasonOnset DateCommentsRefill Tssrdzf0409/03/2021 ReasonCommentsDerm ProblemHs lesionsReasonOnset DateCommentsRefill Request 2ReasonCommentsCare Coordinator - ED Follow UpReasonOnset DateComments Refill Ugnbaie04/17/2022ReasonOnset DateCommentsRefill Nmhlbvf77/29/2022Reason CommentsEstablished PatientPembro infusionSpecialtyDiagnoses / Procedures Referred By ContactReferred To ContactHematology/Oncology / HEMATOLOGY/ONCOLOGY Diagnoses OV ; TX after Procedures EST PATIENT Quintin Stevensonbh B [address] [place] [address] Sylvia Mancilla, ACCOUNT SERVICES ASSOCIATE.TRAINING AND DEVELOPMENT DIRECTOR [address] [place] [address] ReasonCommentsFollow UpPainInsomniaReasonOnset DateCommentsRefill Request 2ReasonOnset DateCommentsRefill Qdbqyao33/20/2022ReasonCommentsOrders ReasonCommentsEstablished PatientSpecialtyDiagnoses / ProceduresReferred By ContactReferred To Contact 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) Procedures [place] [address] [place] [address] Delf[facility] [address] [address] [place] [address] Referral IDStatusReasonStart DateExpiration DateVisits RequestedVisits [id number] [id number] DateComments Refill Xbhedrl88/17/2022ReasonCommentsAcneSpecialtyDiagnoses / Procedures Referred By ContactReferred To ContactDermatology / DERMATOLOGY Diagnoses ACNE Procedures EST DPSI GENERAL Self Nova Leija, ACCOUNT SERVICES ASSOCIATE.TRAINING AND DEVELOPMENT DIRECTOR [address] [place] [address] Referral IDStatusReasonStart DateExpiration DateVisits RequestedVisits [id number] Clearance Required - [employer] Payor 1ReasonOnset DateCommentsRefill Ztzpafs37/24/2022Reason Onset DateCommentsRefill Aqomljt71/30/2022ReasonCommentsCare CoordinationReason Onset DateCommentsRefill Ppqsysp5301/14/2022easonOnset DateCommentsRefill Request 2ReasonOnset DateCommentsRefill Vwpprch6401/19/2022easonCommentsPain Follow UpReasonOnset DateCommentsRefill Tseezwn6403/05/2022ReasonComments Established PatientSpecialtyDiagnoses / ProceduresReferred By ContactReferred To ContactHematology/Oncology / HEMATOLOGY/ONCOLOGY Diagnoses ov after petscan move 02/28 to 03/07 [address]/ Hernandez and infusion after Procedures [place] [address] [place] [address] [place] [address] [place] [address] Referral IDStatusReasonStart DateExpiration DateVisits RequestedVisits [id number]/10/20232/154970CiyqfyYkonp DateCommentsRefill Urdjjek6803/15/2022ReasonCommentsCancerReasonCommentsPatient EducationReason CommentsChemotherapy TreatmentKeytrudaReferral IDStatusReasonStart Date Expiration DateVisits RequestedVisits [id number]/23/202046420715KtlhrqZbgrx DateCommentsRefill Jmbxksi3404/16/2022ReasonCommentsPost Radiation Treatment Follow UpReasonCommentsFollow UpPainReasonCommentsPost Radiation Treatment Follow UpSecond attemptReasonOnset DateCommentsRefill Hucvosr7905/14/2022ReasonCommentsNo ShowSpecialtyDiagnoses / ProceduresReferred By ContactReferred To ContactHematology/Oncology / HEMATOLOGY/ONCOLOGY Diagnoses Acute cough OV with Dr. Hernandez on 06/12 Procedures OFFICE/OUTPATIENT NEW HIGH MDM 60-74 MINUTES OFFICE/OUTPATIENT ESTABLISHED HIGH MDM 40-54 MIN EST PATIENT Bee Vail MD [address] [place] [address] [place] [address] [place] [address] Referral IDStatusReasonStart DateExpiration DateVisits RequestedVisits [id number]/5/20234/5/[id number] DateCommentsRefill Cudxlkn6106/11/2022ReasonCommentsNew MedicationReasonOnset DateCommentsRefill Wkcerhc6807/16/2022ReasonCommentsRadiology CTSpecialtyDiagnoses / Procedures Referred By ContactReferred To ContactHematology/Oncology / HEMATOLOGY/ONCOLOGY Diagnoses Acute cough OV with Dr. Hernandez on 06/12 Procedures OFFICE/OUTPATIENT NEW HIGH MDM 60-74 MINUTES OFFICE/OUTPATIENT ESTABLISHED HIGH MDM 40-54 MIN EST PATIENT Bee Vail MD [address] [place] [address] [place] [address] [place] [address] ReasonCommentsDyspnea On ExertionSimple chronic bronchitisHistory of pulmonary embolismSpecialtyDiagnoses / ProceduresReferred By ContactReferred To Contact Pulmonary Disease / PULMONARY MEDICINE Diagnoses Encounter for follow-up examination after completed treatment for conditions other than malignant neoplasm 6-8 weels with [facility], after CT, pt requesting to do CT closer to home Procedures OFFICE/OUTPATIENT ESTABLISHED SF MDM 10-19 MIN OFFICE/OUTPATIENT ESTABLISHED LOW MDM 20-29 MIN OFFICE/OUTPATIENT ESTABLISHED MOD MDM 30-39 MIN OFFICE/OUTPATIENT ESTABLISHED HIGH MDM 40-54 MIN RI EST PULM GENERAL Bee Vail MD [address] [place] [address] Don Chan, ACCOUNT SERVICES ASSOCIATE.TRAINING AND DEVELOPMENT DIRECTOR [address] [place] [address] Referral IDStatusReasonStart DateExpiration DateVisits RequestedVisits [id number]/9/20235/9/475766IfwgalVtfzdogzWraxfqo UpdateReason Onset DateCommentsRefill Wypeqce1208/07/2022ReasonOnset DateCommentsRefill Request 08/09/2022ReasonOnset DateCommentsRefill Zzuntzw5408/13/2022ReasonOnset Date CommentsRefill Jqqplxd4608/27/2022ReasonCommentsFollow UpSpecialtyDiagnoses / ProceduresReferred By ContactReferred To ContactPulmonary Disease / PULMONARY MEDICINE Diagnoses Nodular sclerosis Hodgkin lymphoma, unspecified site Follow up with Pulmonary SOB Procedures OFFICE/OUTPATIENT NEW HIGH MDM 60-74 MINUTES OFFICE/OUTPATIENT ESTABLISHED HIGH MDM 40-54 MIN RI EST PULM GENERAL Bee Vail MD [address] [place] [address] Don Chan, ACCOUNT SERVICES ASSOCIATE.TRAINING AND DEVELOPMENT DIRECTOR [address] [place] [address] Referral IDStatusReasonStart DateExpiration DateVisits RequestedVisits [id number]/4/20234/[id number] / Procedures Referred By ContactReferred To ContactCT IMAGING Diagnoses Acute cough Procedures CT CHEST WO IVCON DIAGNOSTIC COMPUTED TOMOGRAPHY THORAX W/[place] [address] [place] [address] Ct Imaging Referral IDStatusReasonStart DateExpiration DateVisits RequestedVisits [id number] Auto-Generated Referral /[id number] DateCommentsRefill Wnygajo8110/06/2022ReasonOnset DateCommentsRefill Ruxwgxt1009/10/2022ReasonOnset DateCommentsRefill Request 10/08/2022ReasonOnset DateCommentsRefill Yubsujq9910/01/2022ReasonComments Insurance AuthorizationReasonOnset DateCommentsRefill Danhipg2811/05/2022Reason Onset DateCommentsRefill Krkyiqf3111/08/2022ReasonOnset DateCommentsRefill Request 11/28/2022ReasonCommentsLymphomaNew patient consultationSpecialtyDiagnoses / ProceduresReferred By ContactReferred To ContactHematology / HEMATOLOGY/ONCOLOGY Diagnoses Ref by Dr Cyn Hernandez due to pt wanting closer to home DX: Hodgkins lymphomaPT REQ BRM Procedures OFFICE/OUTPATIENT [facility] MDM 60-74 MINUTES NEW PATIENT MED ONC Bee Vail MD [address] [facility] [place] [address] Ruperto Ledezma MD [address] [facility] [place] [address] Referral IDStatusReasonStart DateExpiration DateVisits RequestedVisits [id number]/8/202311/[id number]ovlZdhcb DateCommentsRefill Ucizmmu3701/06/2023ReasonCommentsSpirometrySpecialtyDiagnoses / ProceduresReferred By ContactReferred To [facility] Diagnoses Chronic cough Procedures LUNG DIFFUSION CAPACITY (DLCO) DIFFUSING CAPACITY Don Chan APRN.TRAINING AND DEVELOPMENT DIRECTOR [address] [place] [address] [facility] [place] [address] [facility] [place] [address] Referral IDStatusReasonStkerrick DateExpiration DateVisits RequestedVisits [id number] Auto-Generated Referral /[id number] / ProceduresReferred By ContactReferred To [facility] Diagnoses Bronchitis Procedures NITRIC OXIDE, EXHALED NITRIC OXIDE GAS DETERMINATION Don Chan APRN.TRAINING AND DEVELOPMENT DIRECTOR [address] [place] [address] [facility] [place] [address] [place] [address] Referral IDStatusReasonStart DateExpiration DateVisits RequestedVisits [id number] Auto-Generated Referral [id number] of BreathWheezingSpecialty Diagnoses / ProceduresReferred By ContactReferred To ContactPulmonary Disease / PULMONARY MEDICINE Diagnoses Bronchitis, not specified as acute or chronic Bronchitis, not specified as acute or chronic [J40] Procedures OFFICE/OUTPATIENT ESTABLISHED HIGH MDM 40 MIN OFFICE/OUTPATIENT ESTABLISHED MOD MDM 30 MIN OFFICE/OUTPATIENT ESTABLISHED LOW MDM 20 MIN OFFICE/OUTPATIENT ESTABLISHED SF MDM 10 MIN RI EST PULM GENERAL Don Chan, ACCOUNT SERVICES ASSOCIATE.TRAINING AND DEVELOPMENT DIRECTOR [address] [facility]. [place] [phone] 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, ACCOUNT SERVICES ASSOCIATE.TRAINING AND DEVELOPMENT DIRECTOR [address] [place] [address] Referral IDStatusResaint joseph health centerStkerrick DateExpiration DateVisits RequestedVisits [id number]/23/202412/306724XqjrajmteGxzvnwqvi / Procedures Referred By ContactReferred To [facility] Diagnoses Bronchitis, not specified as acute or chronic Procedures SPIROMETRY - BASELINE AND POST DILATOR BRNCDILAT RSPSE SPMTRY PRE&POST-BRNCDILAT ADMN Don Chan, ACCOUNT SERVICES ASSOCIATE.TRAINING AND DEVELOPMENT DIRECTOR [address] [facility]. [place] [phone] [facility] [place] [address] [place] [address] Referral IDStatusReason[place] DateExpiration DateVisits RequestedVisits [id number] Auto-Generated Referral /[id number] Change RequestReasonCommentsLab Orders ReasonOnset DateCommentsRefill Uaqppjg33/19/2024ReasonCommentsLymphomaFollow up SpecialtyDiagnoses / ProceduresReferred By ContactReferred To [facility] [place] / PULMONARY MEDICINE Diagnoses Pneumonia Pneumonia, [facility] Follow up, discharged on 04/04 Procedures RI EST PUL GENERAL Bee Vail MD [address] [facility] [place] [address] Carole Ruano, ACCOUNT SERVICES ASSOCIATE.TRAINING AND DEVELOPMENT DIRECTOR [address] [place] [address] ReasonOnset DateCommentsRefill Dxwlesn20/24/2024ReasonCommentsThroat Problem SpecialtyDiagnoses / ProceduresReferred By ContactReferred To ContactEnt - Otolaryngology Diagnoses Dysphagia, unspecified type Hoarseness Procedures CONSULT TO ENT OFFICE/OUTPATIENT NEW HIGH MDM 60 MINUTES 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, ACCOUNT SERVICES ASSOCIATE.TRAINING AND DEVELOPMENT DIRECTOR [address] [place] [address] Referral IDStatusReasonStart DateExpiration DateVisits RequestedVisits [id number] PCP Requested Referral /[id number] Change RequestReasonCommentsRadiology XR ReasonCommentsWheezingShort of breath, Saturday.ReasonOnset DateCommentsRefill Wpwimft26/21/2024ReasonCommentsRestrictive lung diseaseReasonCommentsMedication AuthorizationReasonCommentsfollow upSpecialtyDiagnoses / ProceduresReferred By ContactReferred To ContactPulmonary and Critical Care Medicine / PULMONARY MEDICINE Diagnoses Follow-up exam ok per Dr. Becerril Ms. Weller also needs to be added onto Dr. Becerril's schedule at [place] on Saturday06/28/23 at 11 am (it is a hospital day for her but adding her on per Dr. Becerril). Dr. Becerril would also like her put on the cancellation list for a sooner appt. Procedures OFFICE/OUTPATIENT ESTABLISHED SF MDM 10 MIN OFFICE/OUTPATIENT ESTABLISHED LOW MDM 20 MIN OFFICE/OUTPATIENT ESTABLISHED MOD MDM 30 MIN OFFICE/OUTPATIENT ESTABLISHED HIGH MDM 40 MIN RI EST PULM Bee Galvan MD [address] [facility] [place] [address] [place] [address] [place] [address] Referral IDStatusReasonStart DateExpiration DateVisits RequestedVisits [id number]/26/202412/[id number] Instrumental Swallow EvalSpeech DischargeSpecialtyDiagnoses / ProceduresReferred By ContactReferred To ContactXR IMAGING Diagnoses Dysphagia, unspecified type Procedures XR MODIFIED BARIUM SWALLOW W SPEECH THERAPY RADIOLOGIC EXAM SWALLOW FUNCTION CONTRAST STUDY Anil Franco PA-C [address] [place] [address] [place] [address] Referral IDStatusReasonStart DateExpiration DateVisits RequestedVisits [id number] Auto-Generated Referral /[id number] GI Main NM1PlpqpavkiKwqhiniwj / Procedures Referred By ContactReferred To ContactXR IMAGING Diagnoses Dysphagia, unspecified type Gastroesophageal reflux disease, unspecified whether esophagitis present Procedures XR ESOPHAGRAM RADIOLOGIC EXAM ESOPHAGUS SINGLE CONTRAST STUDY Anil Franco PA-C [address] [place] [address] [place] [address] Referral IDStatusReasonStart DateExpiration DateVisits RequestedVisits [id number] Auto-Generated Referral 1ReasonOnset DateCommentsRefill Ylaxnwa79/17/2024ReasonOnset DateCommentsRefill Uduekof44/25/2024ReasonOnset DateCommentsRefill Request 4ReasonCommentsPainSpecialtyDiagnoses / ProceduresReferred By Contact Referred To ContactOrthopedics / ORTHOPAEDIC SURGERY Diagnoses Right wrist pain right wrist pain Procedures OFFICE/OUTPATIENT NEW SF MDM 15 MINUTES OFFICE/OUTPATIENT NEW LOW MDM 30 MINUTES OFFICE/OUTPATIENT NEW MODERATE MDM 45 MINUTES OFFICE/OUTPATIENT NEW HIGH MDM 60 MINUTES JARAD NEW ORTH/SPORTS Sherly Hansen PA-C [facility] [address] [place] [address] Sherly Hansen PA-C [address] [place] [address] Referral IDStatusReasonStart DateExpiration DateVisits RequestedVisits [id number]/12/202412/31/110426EwvezyUypxdspwGiryzl UpSpecialty Diagnoses / ProceduresReferred By ContactReferred To ContactEnt - Otolaryngology / ENT-OTOLARYNGOLOGY Diagnoses Return for Follow up after MBS, XR esophagram; sooner if clinically indicated.. Procedures EST HNI PATIENT Anil Franco PA-C [address] [place] [address] Anil Franco PA-C [address] [place] [address] Referral IDStatusReasonStkerrick DateExpiration DateVisits RequestedVisits [id number]/29/202412/904867OxtdboLntvq DateCommentsRefill Cltlsgd20/12/2024ReasonCommentsNew Patient EvaluationPsASpecialtyDiagnoses / ProceduresReferred By ContactReferred To ContactRheumatology Diagnoses Psoriatic arthritis (HCC) Procedures CONSULT TO RHEUM/IMMUN DISEASE OFFICE/OUTPATIENT [facility] 60-74 MINUTES Irene Han, ACCOUNT SERVICES ASSOCIATE.TRAINING AND DEVELOPMENT DIRECTOR [address] [place] [address] [address] [address] Referral IDStatusReasonStart DateExpiration DateVisits RequestedVisits [id number] PCP Requested Referral [id number] / ProceduresReferred By ContactReferred To ContactRESPIRATORY INSTITUTE Diagnoses Pulmonary hypertension (HCC) Procedures OXIMETRY WITH AMBULATION NONINVASIVE EAR/PULSE OXIMETRY Carole Morales, ACCOUNT SERVICES ASSOCIATE.TRAINING AND DEVELOPMENT DIRECTOR [address] [place] [address] [facility] [place] [address] [place] [address] Referral IDStatusReasonStart DateExpiration DateVisits RequestedVisits [id number] Auto-Generated Referral /[id number] UpReasonCommentsRadiology NMSpecialty Diagnoses / ProceduresReferred By ContactReferred To ContactMOLECULAR & FUNCTIONAL IMAGING 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) Procedures NM PET/CT SKULL-THIGH SUBSEQUENT PET IMAGING CT ATTENUATION [place] [address] [place] [address] Molecular & Functional Imaging [address] [place] [address] Referral IDStatusReasonStart DateExpiration DateVisits RequestedVisits [id number] Auto-Generated Referral /[id number] / ProceduresReferred By ContactReferred To ContactMOLECULAR & FUNCTIONAL IMAGING Diagnoses 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) Procedures NM PET/CT SKULL-THIGH SUBSEQUENT PET IMAGING CT ATTENUATION SKULL BASE MID-THIGH Ruperto Ledezma MD [address] [place] [address] [place] [address] Molecular & Functional Imaging [address] [place] [address] Referral IDStatusReasonStart DateExpiration DateVisits RequestedVisits [id number] Auto-Generated Referral /[id number] / ProceduresReferred By ContactReferred To ContactMOLECULAR & FUNCTIONAL IMAGING Diagnoses Nodular sclerosing Hodgkin's lymphoma, unspecified body region (HCC) Procedures NM PET/CT SKULL-THIGH SUBSEQUENT PET IMAGING CT ATTENUATION SK[place] [address] [place] [address] Molecular & Functional Imaging [address] [place] [address] Referral IDStatusReasonStart DateExpiration DateVisits RequestedVisits [id number] Auto-Generated Referral [id number] sclerosis Hodgkin lymphoma of lymph nodes of multipSpecialtyDiagnoses / ProceduresReferred By ContactReferred To ContactHematology / HEMATOLOGY/ONCOLOGY Diagnoses 8 week lab Procedures EST PATIENT NitaBee MD [address] [place] [phone] Ruperto Ledezma MD [address] [place] [address] [place] [address] Referral IDStatusReasonStart DateExpiration DateVisits RequestedVisits [id number] Auto-Generated Referral 1ReasonOnset DateCommentsRefill Oplgzpo8611/12/2023Specialty Diagnoses / ProceduresReferred By ContactReferred To ContactMOLECULAR & FUNCTIONAL IMAGING Diagnoses Nodular sclerosing Hodgkin's lymphoma, 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) Procedures NM PET/CT SKULL-THIGH SUBSEQUENT PET IMAGING CT ATTENUATION [place] [address] [place] [address] Molecular & Functional Imaging [address] [place] [address] Referral IDStatusReasonStart DateExpiration DateVisits RequestedVisits [id number] Auto-Generated Referral [id number] / ProceduresReferred By ContactReferred To ContactMOLECULAR & FUNCTIONAL IMAGING Diagnoses Hodgkin lymphoma, unspecified Hodgkin lymphoma type, unspecified body region (HCC) 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) Procedures NM PET/CT SKULL-THIGH SUBSEQUENT PET IMAGING CT ATTENUATION [place] [address] [place] [address] Molecular & Functional Imaging [address] [place], [place] [address] Referral IDStatusReasonStart DateExpiration DateVisits RequestedVisits [id number] Auto-Generated Referral /[id number] / ProceduresReferred By ContactReferred To ContactMOLECULAR & FUNCTIONAL IMAGING Diagnoses Hodgkin lymphoma, unspecified Hodgkin lymphoma type, unspecified body region (HCC) Procedures NM PET/CT SKULL-THIGH SUBSEQUENT TUMOR IMAGING PET W/CONC CT SKULL-THIGH Sylvia Mancilla ACCOUNT SERVICES ASSOCIATE.TRAINING AND DEVELOPMENT DIRECTOR [address] [place] [address] Molecular & Functional Imaging [address] [place], [place] [address] Referral IDStatusReasonStart DateExpiration DateVisits RequestedVisits [id number] Auto-Generated Referral /[id number] F/UWas [facility].SpecialtyDiagnoses / ProceduresReferred By ContactReferred To Contact Pulmonary Disease / PULMONARY MEDICINE Diagnoses pneumonia Procedures OFFICE/OUTPATIENT ESTABLISHED HIGH MDM 40 MIN OFFICE/OUTPATIENT NEW HIGH MDM 60 MINUTES [facility] PUL GENERAL 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, ACCOUNT SERVICES ASSOCIATE.TRAINING AND DEVELOPMENT DIRECTOR [address] [place] [address] 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 ACCOUNT SERVICES ASSOCIATE.TRAINING AND DEVELOPMENT DIRECTOR [address] [place] [address] Referral IDStatusReasonStart DateExpiration DateVisits RequestedVisits [id number]/3/202412/724689MfbtuvQnstvxrviom patientPt here today she has pneumo three times this year pt has had cancer in the past and has been on immunotherapy for the past eight years and has completed her treatment at the start of the year. Pts last hospital stay was three weeks ago for pneumo. Pt is currently on prednisoneReasonOnset DateCommentsMed Lvwekl934Reason CommentsScansReasonCommentsReceived Outside Medical RecordsRequest Outside Medical RecordsReasonComments3 monthReasonCommentsFollow-upNo surgeries; no hospital stays. 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) Procedures NM PET/CT SKULL-THIGH SUBSEQUENT PET IMAGING CT ATTENUATION SKULL BASE MID-THIGH Ellyn Lopez, ACCOUNT SERVICES ASSOCIATE.TRAINING AND DEVELOPMENT DIRECTOR [address] [place] [address] [place] [address] Molecular & Functional Imaging [address] [place] [address] Referral IDStatusReasonStart DateExpiration DateVisits RequestedVisits [id number] Auto-Generated Referral 1ReasonOnset DateCommentsRefill Pzplbbg03/27/2024Reason Commentsoxygen ordersReasonCommentsPainSpecialtyDiagnoses / ProceduresReferred By ContactReferred To ContactPain Management / PAIN MANAGEMENT Diagnoses Chronic pain chronic pain/discuss injections Procedures OFFICE/OUTPATIENT ESTABLISHED SF MDM 10 MIN OFFICE/OUTPATIENT ESTABLISHED LOW MDM 20 MIN OFFICE/OUTPATIENT ESTABLISHED MOD MDM 30 MIN OFFICE/OUTPATIENT ESTABLISHED HIGH MDM 40 MIN PAIN RE Bee Gaines MD [address] [facility] [place] [address] Kodi Pantoja MD [address] [facility] [place] [address] Referral IDStatusReasonStart DateExpiration DateVisits RequestedVisits [id number]/10/202412/31/437481WcccfmLdwggqinXes PatientSpecialty Diagnoses / ProceduresReferred By ContactReferred To ContactCardiology Diagnoses Pleural effusion, left Pulmonary hypertension (HCC) Procedures CONSULT TO CARDIOLOGY OFFICE/OUTPATIENT NEW HIGH MDM 60 MINUTES Carole Ruano, ACCOUNT SERVICES ASSOCIATE.TRAINING AND DEVELOPMENT DIRECTOR [address] [place] [address] Referral IDStatusReasonStart DateExpiration DateVisits RequestedVisits [id number] PCP Requested Referral /[id number] upSpecialtyDiagnoses / Procedures Referred By ContactReferred To Contactulmonary and Critical Care Medicine / PULMONARY MEDICINE Diagnoses Follow-up exam ok per Dr. Becerril Ms. Weller also needs to be added onto Dr. Becerril's schedule at [place] on Saturday06/28/23 at 11 am (it is a hospital day for her but adding her on per Dr. Becerril). Dr. Becerril would also like her put on the cancellation list for a sooner appt. Procedures OFFICE/OUTPATIENT ESTABLISHED SF MDM 10 MIN OFFICE/OUTPATIENT ESTABLISHED LOW MDM 20 MIN OFFICE/OUTPATIENT ESTABLISHED MOD MDM 30 MIN OFFICE/OUTPATIENT ESTABLISHED HIGH MDM 40 MIN RI EST PULM GENERAL Bee Vail MD [address] [facility] [place] [address] [place] [address] [place] [address] ReasonCommentsRadiology NMAppointment reminder.ReasonOnset DateCommentsRefill Iewoxlp8901/13/2024SpecialtyDiagnoses / ProceduresReferred By ContactReferred To [facility] Diagnoses Acute hypoxic respiratory failure (HCC) Bronchiectasis without complication (HCC) Restrictive lung disease Procedures LUNG DIFFUSION CAPACITY (DLCO) DIFFUSING CAPACITY 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, LORY.TRAINING AND DEVELOPMENT DIRECTOR [address] [place] [address] Respiratory [place] [address] [place] [address] Referral IDStatusReasonStart DateExpiration DateVisits RequestedVisits [id number] Auto-Generated Referral [id number] / ProceduresReferred By ContactReferred To [facility] Diagnoses Acute hypoxic respiratory failure (HCC) Bronchiectasis without complication (HCC) Restrictive lung disease Procedures SPIROMETRY WITH DILATOR IF OBSTRUCTED BRNCDILAT RSPSE SPMTRY PRE&POST-BRNCDILAT ADMN 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, ACCOUNT SERVICES ASSOCIATE.TRAINING AND DEVELOPMENT DIRECTOR [address] [place] [address] [address] Referral IDStatusReasonStart DateExpiration DateVisits RequestedVisits [id number] Auto-Generated Referral [id number] / ProceduresReferred By ContactReferred To [facility] Diagnoses Acute hypoxic respiratory failure (HCC) Procedures OXIMETRY WITH AMBULATION NONINVASIVE EAR/PULSE OXIMETRY MULTIPLE DETER 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, ACCOUNT SERVICES ASSOCIATE.TRAINING AND DEVELOPMENT DIRECTOR [address] [place] [address] [address] Referral IDStatusReasonStart DateExpiration DateVisits RequestedVisits [id number] Auto-Generated Referral [id number] / ProceduresReferred By ContactReferred To [facility] Diagnoses Acute hypoxic respiratory failure (HCC) Bronchiectasis without complication (HCC) Restrictive lung disease Procedures SIX MINUTE WALK CARDIOPULMONARY EXERCISE STRESS 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, ACCOUNT SERVICES ASSOCIATE.TRAINING AND DEVELOPMENT DIRECTOR [address] [place] [address] [address] Referral IDStatusReasonStkerrick DateExpiration DateVisits RequestedVisits [id number] Auto-Generated Referral [id number]. Of Dr. Becerril for pulmonary hypertension consultSpecialtyDiagnoses / ProceduresReferred By ContactReferred To Contact Diagnoses Pulmonary hypertension (HCC) Procedures CONSULT TO PULMONARY HYPERTENSION CLINIC OFFICE/OUTPATIENT [facility] 60 [place] [address] [place] [address] Referral IDStatusReasonStart DateExpiration DateVisits RequestedVisits [id number] PCP Requested Referral [id number] SchedulingRHCReasonOnset Date CommentsRecord Ztsuwdz9511/05/2023easonCommentsHospital Follow-upReasonOnset Date CommentsMed Elfreo2010/09/2023easonOnset DateCommentsMed Ancmtt7811/12/2023eason Onset DateCommentsMed Oiphyf8702/10/2024easonOnset DateCommentsRefill Request 02/10/2024easonCommentsPSG Check InReasonOnset DateCommentsRefill Request 03/04/2024ReasonCommentsHospital Uhzdof-uoIqtlqm-zjTisqmsQwwky DateCommentsMed Ecemnp0203/13/2024ReasonOnset DateCommentsRefill Wfdvfoh1004/02/2024ReasonComments OrdersReasonCommentsAllergy TestingPt here for environmental allergy testing and has been off meds for testing.ReasonOnset DateCommentsMed Vcchhc5904/08/2024 ReasonCommentsAppointment ConfirmationReasonOnset DateCommentsCXR results 05/04/2024ReasonCommentsPatient UpdateReasonCommentsRadio Gen RMPReasonOnset DateCommentsMed Xhlina3205/11/2024ReasonCommentsEffusionReasonOnset DateComments Cpap Order05/20/2024ReasonOnset DateCommentsMed Ojsmyi9005/27/2024ReasonComments Follow-upReasonOnset DateCommentsRefill Fcyxbqw5006/25/2024ReasonOnset Date CommentsRefill Zfbbiub7907/28/2024ReasonCommentsHospital Follow-upReasonComments LymphomaSpecialtyDiagnoses / ProceduresReferred By ContactReferred To Contact Hematology / HEMATOLOGY/ONCOLOGY Diagnoses Follow-up exam 3 Month Lab Follow Up 12/24-R/S From 02/09 Called Spoke With Pt Regarding This Appt Procedures OFFICE/OUTPATIENT ESTABLISHED HIGH MDM 40 MIN EST PATIENT Self Ruperto Ledezma MD [address] [place] [address] [place] [address] Phone: tel: fax: ReasonCommentsMed RefillReasonCommentsWell Women VisitReasonOnset DateComments Med Zjvsiy1908/12/2024ReasonOnset DateCommentsMed Gymtds1909/02/2024ReasonComments possible shinglesReasonOnset DateCommentsMed Achfxz3009/28/2024ReasonOnset Date CommentsRefill Fvzfosd1109/28/2024ReasonOnset DateCommentsMed Eowdpn3410/05/2024 ReasonOnset DateCommentsRefill Hfcjazh0810/27/2024ReasonOnset DateCommentsMed Iqllbb9911/13/2024ReasonOnset IubzLkxzjchjEmbqsobokbo86/14/2025ReasonCommentsEye ProblemReasonOnset DateCommentsMed Wfvucm6612/03/2024 Care Teams (unrecognized sec tion and content) Team MemberRelationshipSpecialtyStart DateEnd [facility] Bee [facility]ail MD PCP - GeneralInternal Medicine05/07/16 [place] [address] [place] [address] ConsultingHematology/Vjwitsdk95/10/12 [place] [address] [place] [address] Specialty Care CoordinatorHematology/Oncology11/09/19 [place] [address] [place] [address] Hematology/Oncology03/30/21Team MemberRelationshipSpecialtyStart DateEnd [facility] Bee Vail MD PCP - GeneralInternal Medicine05/07/16 [place] [address] [place] [address] ConsultingHematology/Vsskkkwx28/10/12 [place] [address] [place] [address] Specialty Care CoordinatorHematology/Oncology11/09/19 [place] [address] [place] [address] Hematology/Oncology03/30/21Team MemberRelationshipSpecialtyStart DateEnd Date Bee Vail MD PCP - GeneralInternal Medicine05/07/16 [place] [address] [place] [address] ConsultingHematology/Hxvxrico99/10/12 Marilyn [place] [address] [place] [address] Specialty Care CoordinatorHematology/Oncology11/09/19 [place] [address] [place] [address] Hematology/Oncology03/30/21Team MemberRelationshipSpecialtyStart DateEnd Date Bee Vail MD PCP - GeneralInternal Medicine05/07/16 [place] [address] [place] [address] ConsultingHematology/Lnboxskl77/10/12 [place] [address] [place] [address] Specialty Care CoordinatorHematology/Oncology11/09/19 [place] [address] [place] [address] Hematology/Oncology03/30/21Team MemberRelationshipSpecialtyStart DateEnd Date Bee Vail MD PCP - GeneralInternal Medicine05/07/16 [place] [address] [place] [address] ConsultingHematology/Bryvkzmr17/10/12 Marilyn [place], [place] [address] [place] [address] Specialty Care CoordinatorHematology/Oncology11/09/19 Cyn [place] [address] [place] [address] Hematology/Oncology03/30/21Te MemberRelationshipSpecialtyStart DateEnd Date Bee Vail MD PCP - GeneralInternal Medicine05/07/16 [place] [address] [place] [address] ConsultingHematology/Yjibfchr15/10/12 Marilyn Hughes RN [address] [place] [address] Specialty Care CoordinatorHematology/Oncology11/09/19 [place] [address] [place] [address] Hematology/Oncology03/30/21Te MemberRelationshipSpecialtyStart DateEnd Date Bee Vail MD PCP - GeneralInternal Medicine05/07/16 [place] [address] [place] [address] ConsultingHematology/Pgnvawtd48/10/12 [place] [address] [place] [address] Specialty Care CoordinatorHematology/Oncology11/09/19 [place] [address] [place] [address] Hematology/Oncology03/30/21 Kristina Pete, RN Specialty Care CoordinatorHOSPICE & PALLIATIVE MEDICINE05/22/21Team Member RelationshipSpecialtyStart DateEnd Date Bee Vail MD PCP - GeneralInternal Medicine05/07/16 [place] [address] [place] [address] ConsultingHematology/Sxjxgqcp34/10/12 [place] [address] [place] [address] Specialty Care CoordinatorHematology/Oncology11/09/19 [place] [address] [place] [address] Hematology/Oncology03/30/21 Kristina Pete RN Specialty Care CoordinatorHOSPICE & PALLIATIVE MEDICINE05/22/21Team Member RelationshipSpecialtyStart DateEnd Date Bee Vail MD PCP - GeneralInternal Medicine05/07/16 [place] [address] [place] [address] ConsultingHematology/Qabubsrk11/10/12 [place] [address] [place] [address] Specialty Care CoordinatorHematology/Oncology11/09/19 [place] [address] [place] [address] Hematology/Oncology03/30/21 Kristina Pete, RN Specialty Care CoordinatorHOSPICE & PALLIATIVE MEDICINE05/22/21Team Member RelationshipSpecialtyStart DateEnd Date Bee Vail MD PCP - GeneralInternal Medicine05/07/16 Cyn [place] [address] [place] [address] ConsultingHematology/Pxbfcqkj89/10/12 Marilyn Hughes, MAE [address] [place] [address] Specialty Care CoordinatorHematology/Oncology11/09/19 [place] [address] [place] [address] Hematology/Oncology03/30/21 Kristina Pete, MAE Specialty Care CoordinatorHOSPICE & PALLIATIVE MEDICINE05/22/21Team Member RelationshipSpecialtyStart DateEnd Date Bee Vail MD PCP - GeneralInternal Medicine05/07/16 [place] [address] [place] [address] ConsultingHematology/Ndupgorw67/10/12 Marilyn Hughes, [place] [address] [place] [address] Specialty Care CoordinatorHematology/Oncology11/09/19 [place] [address] [place] [address] Hematology/Oncology03/30/21 Kristina Pete, RN Specialty Care CoordinatorHOSPICE & PALLIATIVE MEDICINE05/22/21 Irene Han, ACCOUNT SERVICES ASSOCIATE.TRAINING AND DEVELOPMENT DIRECTOR [address] [place] [address] Palliative Medicine ProviderHOSPICE & PALLIATIVE MEDICINE06/28/21Team Member RelationshipSpecialtyStart DateEnd Date Bee Vail MD PCP - GeneralInternal Medicine05/07/16 [place] [address] [place] [address] ConsultingHematology/Gpygbgel03/10/12 [place] [address] [place] [address] Specialty Care CoordinatorHematology/Oncology11/09/19 [place] [address] [place] [address] Hematology/Oncology03/30/21 Kristina Pete, RN Specialty Care CoordinatorHOSPICE & PALLIATIVE MEDICINE05/22/21 Irene Han, ACCOUNT SERVICES ASSOCIATE.TRAINING AND DEVELOPMENT DIRECTOR [address] [place] [address] Palliative Medicine ProviderHOSPICE & PALLIATIVE MEDICINE06/28/21Team Member RelationshipSpecialtyStart DateEnd Date Bee Vail MD PCP - GeneralInternal Medicine05/07/16 [place] [address] [place] [address] ConsultingHematology/Hccsbbyx83/10/12 [place] [address] [place] [address] Specialty Care CoordinatorHematology/Oncology11/09/19 [place] [address] [place] [address] Hematology/Oncology03/30/21 Kristina Pete, MAE Specialty Care CoordinatorHOSPICE & PALLIATIVE MEDICINE05/22/21 Irene Han, ACCOUNT SERVICES ASSOCIATE.TRAINING AND DEVELOPMENT DIRECTOR [address] [place] [address] Palliative Medicine ProviderHOSPICE & PALLIATIVE MEDICINE06/28/21Team Member RelationshipSpecialtyStart DateEnd Date Bee Vail MD PCP - GeneralInternal Medicine05/07/16 [place] [address] [place] [address] ConsultingHematology/Kthxlbtx68/10/12 [place] [address] [place] [address] Specialty Care CoordinatorHematology/Oncology11/09/19 [place] [address] [place] [address] Hematology/Oncology03/30/21 Kristina Pete, MAE Specialty Care CoordinatorHOSPICE & PALLIATIVE MEDICINE05/22/21 Irene Han, ACCOUNT SERVICES ASSOCIATE.TRAINING AND DEVELOPMENT DIRECTOR [address] [place] [address] Palliative Medicine ProviderHOSPICE & PALLIATIVE MEDICINE06/28/21Team Member RelationshipSpecialtyStart DateEnd Date Bee Vail MD PCP - GeneralInternal Medicine05/07/16 [place] [address] [place] [address] ConsultingHematology/Bdgtlqni00/10/12 [place] [address] [place] [address] Specialty Care CoordinatorHematology/Oncology11/09/19 [place] [address] [place] [address] Hematology/Oncology03/30/21 Kristina Pete, MAE Specialty Care CoordinatorHOSPICE & PALLIATIVE MEDICINE05/22/21 Irene Han, ACCOUNT SERVICES ASSOCIATE.TRAINING AND DEVELOPMENT DIRECTOR [address] [place], [place] [id number] Palliative Medicine ProviderHOSPICE & PALLIATIVE MEDICINE06/28/21Team Member RelationshipSpecialtyStart DateEnd Date Bee Vail MD PCP - GeneralInternal Medicine05/07/16 [place] [address] [place] [address] ConsultingHematology/Iwkuhfnu09/10/12 [place] [address] [place] [address] Specialty Care CoordinatorHematology/Oncology11/09/19 [place] [address] [place] [address] Hematology/Oncology03/30/21 Kristina Pete, MAE Specialty Care CoordinatorHOSPICE & PALLIATIVE MEDICINE05/22/21 Irene Han, ACCOUNT SERVICES ASSOCIATE.TRAINING AND DEVELOPMENT DIRECTOR [address] [place] [address] Palliative Medicine ProviderHOSPICE & PALLIATIVE MEDICINE06/28/21Team Member RelationshipSpecialtyStart DateEnd Date Bee Vail MD PCP - GeneralInternal Medicine05/07/16 [place] [address] [place] [address] ConsultingHematology/Tnwknzwt39/10/12 [place] [address] [place] [address] Specialty Care CoordinatorHematology/Oncology11/09/19 [place] [address] [place] [address] Hematology/Oncology03/30/21 Kristina Pete, MAE Specialty Care CoordinatorHOSPICE & PALLIATIVE MEDICINE05/22/21 Irene Han, ACCOUNT SERVICES ASSOCIATE.TRAINING AND DEVELOPMENT DIRECTOR [address] [place] [address] Palliative Medicine ProviderHOSPICE & PALLIATIVE MEDICINE06/28/21Team Member RelationshipSpecialtyStart DateEnd Date Bee Vail MD PCP - GeneralInternal Medicine05/07/16 [place] [address] [place] [address] ConsultingHematology/Wjrvkvki62/10/12 [place] [address] [place] [address] Specialty Care CoordinatorHematology/Oncology11/09/19 [place] [address] [place] [address] Hematology/Oncology03/30/21 Kristina Pete, MAE Specialty Care CoordinatorHOSPICE & PALLIATIVE MEDICINE05/22/21 Irene Han, ACCOUNT SERVICES ASSOCIATE.TRAINING AND DEVELOPMENT DIRECTOR [address] [place] [address] Palliative Medicine ProviderHOSPICE & PALLIATIVE MEDICINE06/28/21Team Member RelationshipSpecialtyStart DateEnd Date Bee Vail MD PCP - GeneralInternal Medicine05/07/16 [place] [address] [place] [address] ConsultingHematology/Elvehial28/10/12 Marilyn Hughes, MAE [address] [place] [address] Specialty Care CoordinatorHematology/Oncology11/09/19 [place] [address] [place] [address] Hematology/Oncology03/30/21 Kristina Pete, MAE Specialty Care CoordinatorHOSPICE & PALLIATIVE MEDICINE05/22/21 Irene Han, ACCOUNT SERVICES ASSOCIATE.TRAINING AND DEVELOPMENT DIRECTOR [address] [place] [address] Palliative Medicine ProviderHOSPICE & PALLIATIVE MEDICINE06/28/21Team Member RelationshipSpecialtyStart DateEnd Date Bee Vail MD PCP - GeneralInternal Medicine05/07/16 [place] [address] [place] [address] ConsultingHematology/Bxjzqwmk52/10/12 [place], MAE [address] [place] [address] Specialty Care CoordinatorHematology/Oncology11/09/19 [place] [address] [facility] [place] [address] Hematology/Oncology03/30/21 Kristina Pete, RN Specialty Care CoordinatorHOSPICE & PALLIATIVE MEDICINE05/22/21 Irene Han, ACCOUNT SERVICES ASSOCIATE.TRAINING AND DEVELOPMENT DIRECTOR [address] [place] [address] Palliative Medicine ProviderHOSPICE & PALLIATIVE MEDICINE06/28/21Team Member RelationshipSpecialtyStart DateEnd Date Bee Vail MD PCP - GeneralInternal Medicine05/07/16 [place] [address] [place] [address] ConsultingHematology/Ubilypui18/10/12 Marilyn Hughes, MAE [address] [place] [address] Specialty Care CoordinatorHematology/Oncology11/09/19 [place] [address] [place] [address] Hematology/Oncology03/30/21 Kristina Pete, RN Specialty Care CoordinatorHOSPICE & PALLIATIVE MEDICINE05/22/21 Irene Han, ACCOUNT SERVICES ASSOCIATE.TRAINING AND DEVELOPMENT DIRECTOR [address] [place] [address] Palliative Medicine ProviderHOSPICE & PALLIATIVE MEDICINE06/28/21Team Member RelationshipSpecialtyStart DateEnd Date Bee Vail MD PCP - GeneralInternal Medicine05/07/16 [place] [address] [facility] [place] [address] ConsultingHematology/Cjdcyekd57/10/12 [place] [address] [place] [address] Specialty Care CoordinatorHematology/Oncology11/09/19 [place] [address] [facility] [place] [address] Hematology/Oncology03/30/21 Kristina Pete, MAE Specialty Care CoordinatorHOSPICE & PALLIATIVE MEDICINE05/22/21 Irene Han, ACCOUNT SERVICES ASSOCIATE.TRAINING AND DEVELOPMENT DIRECTOR [address] [place] [address] Palliative Medicine ProviderHOSPICE & PALLIATIVE MEDICINE06/28/21Team Member RelationshipSpecialtyStart DateEnd Date Bee Vail MD PCP - GeneralInternal Medicine05/07/16 [place] [address] [place] [address] ConsultingHematology/Kmzqhaly03/10/12 [place] [address] [place] [address] Specialty Care CoordinatorHematology/Oncology11/09/19 [place] [address] [place] [address] Hematology/Oncology03/30/21 Kristina Pete, MAE Specialty Care CoordinatorHOSPICE & PALLIATIVE MEDICINE05/22/21 Irene Han, ACCOUNT SERVICES ASSOCIATE.TRAINING AND DEVELOPMENT DIRECTOR [address] [place] [address] Palliative Medicine ProviderHOSPICE & PALLIATIVE MEDICINE06/28/21Team Member RelationshipSpecialtyStart DateEnd Date Bee Vail MD PCP - GeneralInternal Medicine05/07/16 [place] [address] [place] [address] ConsultingHematology/Uqgitgsp23/10/12 [place] [address] [place] [address] Specialty Care CoordinatorHematology/Oncology11/09/19 [place] [address] [place] [address] Hematology/Oncology03/30/21 Kristina Pete, MAE Specialty Care CoordinatorHOSPICE & PALLIATIVE MEDICINE05/22/21 Irene Han, ACCOUNT SERVICES ASSOCIATE.TRAINING AND DEVELOPMENT DIRECTOR [address] [place] [address] Palliative Medicine ProviderHOSPICE & PALLIATIVE MEDICINE06/28/21Team Member RelationshipSpecialtyStart DateEnd Date Bee Vail MD PCP - GeneralInternal Medicine05/07/16 [place] [address] [place] [address] ConsultingHematology/Zjrckabu79/10/12 Mar[place] Hughes, MAE [address] [place] [address] Specialty Care CoordinatorHematology/Oncology11/09/19 [place] [address] [place] [address] Hematology/Oncology03/30/21 Kristina Pete, MAE Specialty Care CoordinatorHOSPICE & PALLIATIVE MEDICINE05/22/21 Irene Han, ACCOUNT SERVICES ASSOCIATE.TRAINING AND DEVELOPMENT DIRECTOR [address] [place] [address] Palliative Medicine ProviderHOSPICE & PALLIATIVE MEDICINE06/28/21Team Member RelationshipSpecialtyStart DateEnd Date Bee Vail MD PCP - GeneralInternal Medicine05/07/16 [place] [address] [place] [address] ConsultingHematology/Xnyvavrg30/10/12 [place] [address] [place] [address] Specialty Care CoordinatorHematology/Oncology11/09/19 [place] [address] [place] [address] Hematology/Oncology03/30/21 Kristina Pete, MAE Specialty Care CoordinatorHOSPICE & PALLIATIVE MEDICINE05/22/21 Irene Hna, ACCOUNT SERVICES ASSOCIATE.TRAINING AND DEVELOPMENT DIRECTOR [address] [place] [address] Palliative Medicine ProviderHOSPICE & PALLIATIVE MEDICINE06/28/21Team Member RelationshipSpecialtyStart DateEnd Date Bee Vail MD PCP - GeneralInternal Medicine05/07/16 [place] [address] [place] [address] ConsultingHematology/Rojqzcgn59/10/12 [place] [address] [place] [address] Specialty Care CoordinatorHematology/Oncology11/09/19 [place] [address] [place] [address] Hematology/Oncology03/30/21 Kristina Pete, MAE Specialty Care CoordinatorHOSPICE & PALLIATIVE MEDICINE05/22/21 Irene Han, ACCOUNT SERVICES ASSOCIATE.TRAINING AND DEVELOPMENT DIRECTOR [address] [place] [address] Palliative Medicine ProviderHOSPICE & PALLIATIVE MEDICINE06/28/21Team Member RelationshipSpecialtyStart DateEnd Date Bee Vail MD PCP - GeneralInternal Medicine05/07/16 [place] [address] [place] [address] ConsultingHematology/Ozgtbqbr21/10/12 Marilyn Hughes, MAE [address] [place] [address] Specialty Care CoordinatorHematology/Oncology11/09/19 [place] [address] [place] [address] Hematology/Oncology03/30/21 Kristina Pete, MAE Specialty Care CoordinatorHOSPICE & PALLIATIVE MEDICINE05/22/21 Irene Han, ACCOUNT SERVICES ASSOCIATE.TRAINING AND DEVELOPMENT DIRECTOR [address] [place] [address] Palliative Medicine ProviderHOSPICE & PALLIATIVE MEDICINE06/28/21 Kylie Mosher, RN Specialty Care CoordinatorHOSPICE & PALLIATIVE MEDICINE09/27/21Team Member RelationshipSpecialtyStart DateEnd Date Bee Vail MD PCP - GeneralInternal Medicine05/07/16 [place] [address] [place] [address] ConsultingHematology/Fdipmtqu14/10/12 [place]E [address] [place] [address] Specialty Care CoordinatorHematology/Oncology11/09/19 [place] [address] [place] [address] Hematology/Oncology03/30/21 Kristina Pete, MAE Specialty Care CoordinatorHOSPICE & PALLIATIVE MEDICINE05/22/21 Irene Han, ACCOUNT SERVICES ASSOCIATE.TRAINING AND DEVELOPMENT DIRECTOR [address] [place] [address] Palliative Medicine ProviderHOSPICE & PALLIATIVE MEDICINE06/28/21 Kylie Mosher RN Specialty Care CoordinatorHOSPICE & PALLIATIVE MEDICINE09/27/21Team Member RelationshipSpecialtyStart DateEnd Date Bee Vail MD PCP - GeneralInternal Medicine05/07/16 [place] [address] [place] [address] ConsultingHematology/Uholqlea89/10/12 [place] [address] [place] [address] Specialty Care CoordinatorHematology/Oncology11/09/19 [place] [address] [place] [address] Hematology/Oncology03/30/21 Kristina Pete, MAE Specialty Care CoordinatorHOSPICE & PALLIATIVE MEDICINE05/22/21 Irene Han, ACCOUNT SERVICES ASSOCIATE.TRAINING AND DEVELOPMENT DIRECTOR [address] [place] [address] Palliative Medicine ProviderHOSPICE & PALLIATIVE MEDICINE06/28/21 Kylie Mosher, RN Specialty Care CoordinatorHOSPICE & PALLIATIVE MEDICINE09/27/21Team Member RelationshipSpecialtyStart DateEnd Date Bee Vail MD PCP - GeneralInternal Medicine05/07/16 [place] [address] [place] [address] ConsultingHematology/Hvdabkkv36/10/12 [place], MAE [address] [place] [address] Specialty Care CoordinatorHematology/Oncology11/09/19 [place] [address] [place] [address] Hematology/Oncology03/30/21 Kristina Pete, MAE Specialty Care CoordinatorHOSPICE & PALLIATIVE MEDICINE05/22/21 Irene Han, ACCOUNT SERVICES ASSOCIATE.TRAINING AND DEVELOPMENT DIRECTOR [address] [place] [address] Palliative Medicine ProviderHOSPICE & PALLIATIVE MEDICINE06/28/21 Kylie Mosher RN Specialty Care CoordinatorHOSPICE & PALLIATIVE MEDICINE09/27/21Team Member RelationshipSpecialtyStart DateEnd Date Bee Vail MD PCP - GeneralInternal Medicine05/07/16 [place] [address] [place] [address] ConsultingHematology/Zgefgtow19/10/12 [place] [address] [place] [address] Specialty Care CoordinatorHematology/Oncology11/09/19 [place] [address] [facility] [place] [place] [address] Hematology/Oncology03/30/21 Kristina Pete, RN Specialty Care CoordinatorHOSPICE & PALLIATIVE MEDICINE05/22/21 Irene Han, ACCOUNT SERVICES ASSOCIATE.TRAINING AND DEVELOPMENT DIRECTOR [address] [place] [address] Palliative Medicine ProviderHOSPICE & PALLIATIVE MEDICINE06/28/21 Kylie Mosher, RN Specialty Care CoordinatorHOSPICE & PALLIATIVE MEDICINE09/27/21Team Member RelationshipSpecialtyStart DateEnd Date Bee Vail MD PCP - GeneralInternal Medicine05/07/16 [place] [address] [facility] [place] [address] ConsultingHematology/Hotptyzg07/10/12 [place]E [address] [place] [address] Specialty Care CoordinatorHematology/Oncology11/09/19 [place] [address] [place] [address] Hematology/Oncology03/30/21 Kristina Pete, MAE Specialty Care CoordinatorHOSPICE & PALLIATIVE MEDICINE05/22/21 Irene Han, ACCOUNT SERVICES ASSOCIATE.TRAINING AND DEVELOPMENT DIRECTOR [address] [place] [address] Palliative Medicine ProviderHOSPICE & PALLIATIVE MEDICINE06/28/21 Kylie Mosher RN Specialty Care CoordinatorHOSPICE & PALLIATIVE MEDICINE09/27/21Team Member RelationshipSpecialtyStart DateEnd Date Bee Vail MD PCP - GeneralInternal Medicine05/07/16 [place] [address] [place] [address] ConsultingHematology/Vsimvmhh53/10/12 [place] [address] [place] [address] Specialty Care CoordinatorHematology/Oncology11/09/19 [place] [address] [place] [address] Hematology/Oncology03/30/21 Kristina Pete, MAE Specialty Care CoordinatorHOSPICE & PALLIATIVE MEDICINE05/22/21 Irene Han, ACCOUNT SERVICES ASSOCIATE.TRAINING AND DEVELOPMENT DIRECTOR [address] [place] [address] Palliative Medicine ProviderHOSPICE & PALLIATIVE MEDICINE06/28/21 Kylie Mosher RN Specialty Care CoordinatorHOSPICE & PALLIATIVE MEDICINE09/27/21Team Member RelationshipSpecialtyStart DateEnd Date Bee Vail MD PCP - GeneralInternal Medicine05/07/16 [place] [address] [place] [address] ConsultingHematology/Olrncpqi06/10/12 [place]E [address] [place] [address] Specialty Care CoordinatorHematology/Oncology11/09/19 [place] [address] [place] [address] Hematology/Oncology03/30/21 Kristina Pete, MAE Specialty Care CoordinatorHOSPICE & PALLIATIVE MEDICINE05/22/21 Irene Han, ACCOUNT SERVICES ASSOCIATE.TRAINING AND DEVELOPMENT DIRECTOR [address] [place] [address] Palliative Medicine ProviderHOSPICE & PALLIATIVE MEDICINE06/28/21 Kylie Mosher, RN Specialty Care CoordinatorHOSPICE & PALLIATIVE MEDICINE09/27/21Team Member RelationshipSpecialtyStart DateEnd Date Bee Vail MD PCP - GeneralInternal Medicine05/07/16 [place] [address] [place] [address] ConsultingHematology/Jhpkmgyv78/10/12 [place] MAE [address] [place] [address] Specialty Care CoordinatorHematology/Oncology11/09/19 [place] [address] [place] [address] Hematology/Oncology03/30/21 Kristina Pete, MAE Specialty Care CoordinatorHOSPICE & PALLIATIVE MEDICINE05/22/21 Irene Han, ACCOUNT SERVICES ASSOCIATE.TRAINING AND DEVELOPMENT DIRECTOR [address] [place] [address] Palliative Medicine ProviderHOSPICE & PALLIATIVE MEDICINE06/28/21 Kylie Mosher, RN Specialty Care CoordinatorHOSPICE & PALLIATIVE MEDICINE09/27/21Team Member RelationshipSpecialtyStart DateEnd Date Bee Vail MD PCP - GeneralInternal Medicine05/07/16 [place] [address] [place] [address] ConsultingHematology/Hfwpcnpg88/10/12 Marilyn Hughes, MAE [address] [place] [address] Specialty Care CoordinatorHematology/Oncology11/09/19 [place] [address] [place] [address] Hematology/Oncology03/30/21 Kristina Pete RN Specialty Care CoordinatorHOSPICE & PALLIATIVE MEDICINE05/22/21 Irene Han, ACCOUNT SERVICES ASSOCIATE.TRAINING AND DEVELOPMENT DIRECTOR [address] [place] [address] Palliative Medicine ProviderHOSPICE & PALLIATIVE MEDICINE06/28/21 Kylie Mosher RN Specialty Care CoordinatorHOSPICE & PALLIATIVE MEDICINE09/27/21Team Member RelationshipSpecialtyStart DateEnd Date Bee Vail MD PCP - GeneralInternal Medicine05/07/16 [place] [address] [place] [address] ConsultingHematology/Cbmdxhza91/10/12 [place] [address] [place] [address] Specialty Care CoordinatorHematology/Oncology11/09/19 [place] [address] [place] [address] Hematology/Oncology03/30/21 Kristina Pete RN Specialty Care CoordinatorHOSPICE & PALLIATIVE MEDICINE05/22/21 Irene Han, ACCOUNT SERVICES ASSOCIATE.TRAINING AND DEVELOPMENT DIRECTOR [address] [place] [address] Palliative Medicine ProviderHOSPICE & PALLIATIVE MEDICINE06/28/21 Kylie Mosher RN Specialty Care CoordinatorHOSPICE & PALLIATIVE MEDICINE09/27/21Team Member RelationshipSpecialtyStart DateEnd Date Bee Vail MD PCP - GeneralInternal Medicine05/07/16 [place] [address] [place] [address] ConsultingHematology/Vrftewvb73/10/12 [place] [address] [place] [address] Specialty Care CoordinatorHematology/Oncology11/09/19 [place] [address] [place] [address] Hematology/Oncology03/30/21 Kristina Pete, MAE Specialty Care CoordinatorHOSPICE & PALLIATIVE MEDICINE05/22/21 Irene Han, ACCOUNT SERVICES ASSOCIATE.TRAINING AND DEVELOPMENT DIRECTOR [address] [place] [address] Palliative Medicine ProviderHOSPICE & PALLIATIVE MEDICINE06/28/21 Kylie Mosher, RN Specialty Care CoordinatorHOSPICE & PALLIATIVE MEDICINE09/27/21Team Member RelationshipSpecialtyStart DateEnd Date Bee Vail MD PCP - GeneralInternal Medicine05/07/16 [place] [address] [place] [address] ConsultingHematology/Upfxirfw20/10/12 [place] [address] [place] [address] Specialty Care CoordinatorHematology/Oncology11/09/19 [place] [address] [place] [address] Hematology/Oncology03/30/21 Kristina Pete, MAE Specialty Care CoordinatorHOSPICE & PALLIATIVE MEDICINE05/22/21 Irene Han, ACCOUNT SERVICES ASSOCIATE.TRAINING AND DEVELOPMENT DIRECTOR [address] [place] [address] Palliative Medicine ProviderHOSPICE & PALLIATIVE MEDICINE06/28/21 Kylie Mosher, RN Specialty Care CoordinatorHOSPICE & PALLIATIVE MEDICINE09/27/21Team Member RelationshipSpecialtyStart DateEnd Date Bee Vail MD PCP - GeneralInternal Medicine05/07/16 [place] [address] [place] [address] ConsultingHematology/Kwfmwxsc30/10/12 [place] Hughes, MAE [address] [place] [address] Specialty Care CoordinatorHematology/Oncology11/09/19 [place] [address] [place] [address] Hematology/Oncology03/30/21 Kristina Pete, MAE Specialty Care CoordinatorHOSPICE & PALLIATIVE MEDICINE05/22/21 Irene Han, ACCOUNT SERVICES ASSOCIATE.TRAINING AND DEVELOPMENT DIRECTOR [address] [place] [address] Palliative Medicine ProviderHOSPICE & PALLIATIVE MEDICINE06/28/21 Kylie Mosher, RN Specialty Care CoordinatorHOSPICE & PALLIATIVE MEDICINE09/27/21Team Member RelationshipSpecialtyStart DateEnd Date Bee Vail MD PCP - GeneralInternal Medicine05/07/16 [place] [address] [place] [address] ConsultingHematology/Wyhuvdce75/10/12 [place]E [address] [place] [address] Specialty Care CoordinatorHematology/Oncology11/09/19 [place] [address] [place] [address] Hematology/Oncology03/30/21 Kristina Pete, RN Specialty Care CoordinatorHOSPICE & PALLIATIVE MEDICINE05/22/21 Irene Han, ACCOUNT SERVICES ASSOCIATE.TRAINING AND DEVELOPMENT DIRECTOR [address] [place] [address] Palliative Medicine ProviderHOSPICE & PALLIATIVE MEDICINE06/28/21 Kylie Mosher RN Specialty Care CoordinatorHOSPICE & PALLIATIVE MEDICINE09/27/21Team Member RelationshipSpecialtyStart DateEnd Date Bee Vail MD PCP - GeneralInternal Medicine05/07/16 [place] [address] [place] [address] ConsultingHematology/Cmklfeae79/10/12 [place] [address] [place] [address] Specialty Care CoordinatorHematology/Oncology11/09/19 [place] [address] [place] [address] Hematology/Oncology03/30/21 Kristina Pete, MAE Specialty Care CoordinatorHOSPICE & PALLIATIVE MEDICINE05/22/21 Irene Han, ACCOUNT SERVICES ASSOCIATE.TRAINING AND DEVELOPMENT DIRECTOR [address] [facility] [place] [address] Palliative Medicine ProviderHOSPICE & PALLIATIVE MEDICINE06/28/21 Kylie Mosher, RN Specialty Care CoordinatorHOSPICE & PALLIATIVE MEDICINE09/27/21Team Member RelationshipSpecialty[place] [address] [place] [address] PCP - GeneralInternal Medicine05/07/16 [place] [address] ConsultingHematology/Dxbnsruc16/10/12 Marilyn Hughes, [place] [address] [place] [address] Specialty Care CoordinatorHematology/Oncology11/09/19 [place] [address] Hematology/Oncology03/30/21 Kristina Pete, MAE Specialty Care CoordinatorHOSPICE & PALLIATIVE MEDICINE05/22/21 Irene Han, ACCOUNT SERVICES ASSOCIATE.TRAINING AND DEVELOPMENT DIRECTOR [address] [place] [address] Palliative Medicine ProviderHOSPICE & PALLIATIVE MEDICINE06/28/21 Kylie Mosher RN Specialty Care CoordinatorHOSPICE & PALLIATIVE MEDICINE09/27/21Team Member RelationshipSpecialtyStart Date[place] [address] PCP - GeneralInternal Medicine05/07/16 [place] [address] [place] [address] ConsultingHematology/Wcwplrfl95/10/12 Marilyn Hughes, [place] [address] [place] [address] Specialty Care CoordinatorHematology/Oncology11/09/19 [place] [address] [place] [address] Hematology/Oncology03/30/21 Kristina Pete, MAE Specialty Care CoordinatorHOSPICE & PALLIATIVE MEDICINE05/22/21 Irene Han, ACCOUNT SERVICES ASSOCIATE.TRAINING AND DEVELOPMENT DIRECTOR [address] [place] [address] Palliative Medicine ProviderHOSPICE & PALLIATIVE MEDICINE06/28/21 Kylie Mosher, RN Specialty Care CoordinatorHOSPICE & PALLIATIVE MEDICINE09/27/21Team Member RelationshipSpecialty[place] [address] [place] [address] PCP - GeneralInternal Medicine05/07/16 [place] [address] [place] [address] ConsultingHematology/Lawaqrab73/10/12 [place] MAE [address] [place] [address] Specialty Care CoordinatorHematology/Oncology11/09/19 [place] [address] [place] [address] Hematology/Oncology03/30/21 Kristina Pete, MAE Specialty Care CoordinatorHOSPICE & PALLIATIVE MEDICINE05/22/21 Irene Han, ACCOUNT SERVICES ASSOCIATE.TRAINING AND DEVELOPMENT DIRECTOR [address] [place] [address] Palliative Medicine ProviderHOSPICE & PALLIATIVE MEDICINE06/28/21 Kylie Mosher RN Specialty Care CoordinatorHOSPICE & PALLIATIVE MEDICINE09/27/21Team Member RelationshipSpecialty[place] [address] [place] [address] PCP - GeneralInternal Medicine05/07/16 Cyn [place] [address] [place] [address] ConsultingHematology/Ufzoyjxw50/10/12 Marilyn Hughes, RN [address] [place] [address] Specialty Care CoordinatorHematology/Oncology11/09/19 [place] [address] [place] [address] Hematology/Oncology03/30/21 Kristina Pete, MAE Specialty Care CoordinatorHOSPICE & PALLIATIVE MEDICINE05/22/21 Irene Han, ACCOUNT SERVICES ASSOCIATE.TRAINING AND DEVELOPMENT DIRECTOR [address] [place] [address] Palliative Medicine ProviderHOSPICE & PALLIATIVE MEDICINE06/28/21 Kylie Mosher, RN Specialty Care CoordinatorHOSPICE & PALLIATIVE MEDICINE09/27/21Team Member [place]Special[place] [address] [place] [address] PCP - GeneralInternal Medicine05/07/16 [place] [address] [place] [address] ConsultingHematology/Eljmnhcw19/10/12 Marilyn Hughes, MAE [address] [place] [address] Specialty Care CoordinatorHematology/Oncology11/09/19 [place] [address] [place] [address] Hematology/Oncology03/30/21 Kristina Pete, MAE Specialty Care CoordinatorHOSPICE & PALLIATIVE MEDICINE05/22/21 Irene Han, ACCOUNT SERVICES ASSOCIATE.TRAINING AND DEVELOPMENT DIRECTOR [address] [place] [address] Palliative Medicine ProviderHOSPICE & PALLIATIVE MEDICINE06/28/21 Kylie Mosher, RN Specialty Care CoordinatorHOSPICE & PALLIATIVE MEDICINE09/27/21Team Member RelationshipSpecialty[place] [address] [place] [address] PCP - GeneralInternal Medicine05/07/16 [place] [address] [place] [address] ConsultingHematology/Srustfef82/10/12 Mar[place], MAE [address] [place] [address] Specialty Care CoordinatorHematology/Oncology11/09/19 [place] [address] [place] [address] Hematology/Oncology03/30/21 Kristina Pete, MAE Specialty Care CoordinatorHOSPICE & PALLIATIVE MEDICINE05/22/21 Irene Han, ACCOUNT SERVICES ASSOCIATE.TRAINING AND DEVELOPMENT DIRECTOR [address] [place] [address] Palliative Medicine ProviderHOSPICE & PALLIATIVE MEDICINE06/28/21 Kylie Mosher, RN Specialty Care CoordinatorHOSPICE & PALLIATIVE MEDICINE09/27/21Team Member RelationshipSpecialty[place] [address] [place] [address] PCP - GeneralInternal Medicine05/07/16 [place] [address] [place] [address] ConsultingHematology/Uormvwpr68/10/12 Marilyn Hughes, MAE [address] [place] [address] Specialty Care CoordinatorHematology/Oncology11/09/19 [place] [address] [place] [address] Hematology/Oncology03/30/21 Kristina Pete, MAE Specialty Care CoordinatorHOSPICE & PALLIATIVE MEDICINE05/22/21 Irene Han, ACCOUNT SERVICES ASSOCIATE.TRAINING AND DEVELOPMENT DIRECTOR [address] [place] [address] Palliative Medicine ProviderHOSPICE & PALLIATIVE MEDICINE06/28/21 Kylie Mosher RN Specialty Care CoordinatorHOSPICE & PALLIATIVE MEDICINE09/27/21Team Member RelationshipSpecialty[place] [address] [place] [address] PCP - GeneralInternal Medicine05/07/16 [place] [address] [place] [address] ConsultingHematology/Bdsraeot19/10/12 Marilyn Hughes RN [address] [place] [address] Specialty Care CoordinatorHematology/Oncology11/09/19 [place] [address] [place] [address] Hematology/Oncology03/30/21 Kristina Pete, MAE Specialty Care CoordinatorHOSPICE & PALLIATIVE MEDICINE05/22/21 Irene Han, ACCOUNT SERVICES ASSOCIATE.TRAINING AND DEVELOPMENT DIRECTOR [address] [facility] [place] [address] Palliative Medicine ProviderHOSPICE & PALLIATIVE MEDICINE06/28/21 Kylie Mosher, RN Specialty Care CoordinatorHOSPICE & PALLIATIVE MEDICINE09/27/21Team Member RelationshipSpecialty[place] [address] [place] [address] PCP - GeneralInternal Medicine05/07/16 [place] [address] [place] [address] ConsultingHematology/Nwvvboto55/10/12 [place] [address] [place] [address] Specialty Care CoordinatorHematology/Oncology11/09/19 [place] [address] [place] [address] Hematology/Oncology03/30/21 Kristina Pete, MAE Specialty Care CoordinatorHOSPICE & PALLIATIVE MEDICINE05/22/21 Irene Han, ACCOUNT SERVICES ASSOCIATE.TRAINING AND DEVELOPMENT DIRECTOR [address] [place] [address] Palliative Medicine ProviderHOSPICE & PALLIATIVE MEDICINE06/28/21 Kylie Mosher, RN Specialty Care CoordinatorHOSPICE & PALLIATIVE MEDICINE09/27/21Team Member RelationshipSpecialty[place] [address] [place] [address] PCP - GeneralInternal Medicine05/07/16 [place] [address] [place] [address] ConsultingHematology/Kbcvbdhf90/10/12 [place] [address] [place] [address] Specialty Care CoordinatorHematology/Oncology11/09/19 [place] [address] [place] [address] Hematology/Oncology03/30/21 Kristina Pete RN Specialty Care CoordinatorHOSPICE & PALLIATIVE MEDICINE05/22/21 Irene Han, ACCOUNT SERVICES ASSOCIATE.TRAINING AND DEVELOPMENT DIRECTOR [address] [place] [address] Palliative Medicine ProviderHOSPICE & PALLIATIVE MEDICINE06/28/21 Kylie Mosher RN Specialty Care CoordinatorHOSPICE & PALLIATIVE MEDICINE09/27/21Team Member RelationshipSpecialty[place] [address] [place] [address] PCP - GeneralInternal Medicine05/07/16 [place] [address] [place] [address] ConsultingHematology/Sncnqzrb01/10/12 [place] [address] [place] [address] Specialty Care CoordinatorHematology/Oncology11/09/19 [place] [address] [place] [address] Hematology/Oncology03/30/21 Kristina Pete, MAE Specialty Care CoordinatorHOSPICE & PALLIATIVE MEDICINE05/22/21 Irene Han, ACCOUNT SERVICES ASSOCIATE.TRAINING AND DEVELOPMENT DIRECTOR [address] [place] [address] Palliative Medicine ProviderHOSPICE & PALLIATIVE MEDICINE06/28/21 Nomi, Kylie L, RN Specialty Care CoordinatorHOSPICE & PALLIATIVE MEDICINE09/27/21Team Member RelationshipSpecialty[place] [address] [place] [address] PCP - GeneralInternal Medicine05/07/16 [place] [address] [place] [address] ConsultingHematology/Yattcnwc34/10/12 Marilyn Hughes, MAE [address] [place] [address] Specialty Care CoordinatorHematology/Oncology11/09/19 [place] [address] [place] [address] Hematology/Oncology03/30/21 Kristina Pete, MAE Specialty Care CoordinatorHOSPICE & PALLIATIVE MEDICINE05/22/21 Irene Han, ACCOUNT SERVICES ASSOCIATE.TRAINING AND DEVELOPMENT DIRECTOR [address] [place] [address] Palliative Medicine ProviderHOSPICE & PALLIATIVE MEDICINE06/28/21 Kylie Mosher, RN Specialty Care CoordinatorHOSPICE & PALLIATIVE MEDICINE09/27/21Team Member RelationshipSpecialty[place] [address] [place] [address] PCP - GeneralInternal Medicine05/07/16 [place] [address] [place] [address] ConsultingHematology/Knjfrpnx43/10/12 Marilyn Hughes, MAE [address] [place] [address] Specialty Care CoordinatorHematology/Oncology11/09/19 [place] [address] [place] [address] Hematology/Oncology03/30/21 Kristina Pete, MAE Specialty Care CoordinatorHOSPICE & PALLIATIVE MEDICINE05/22/21 Irene Han, ACCOUNT SERVICES ASSOCIATE.TRAINING AND DEVELOPMENT DIRECTOR [address] [place] [address] Palliative Medicine ProviderHOSPICE & PALLIATIVE MEDICINE06/28/21 Kylie Mosher, RN Specialty Care CoordinatorHOSPICE & PALLIATIVE MEDICINE09/27/21Team Member RelationshipSpecialty[place] [address] [place] [address] PCP - GeneralInternal Medicine05/07/16 [place] [address] [place] [address] ConsultingHematology/Qxvicdht06/10/12 [place]E [address] [place] [address] Specialty Care CoordinatorHematology/Oncology11/09/19 [place] [address] [place] [address] Hematology/Oncology03/30/21 Kristina Pete, MAE Specialty Care CoordinatorHOSPICE & PALLIATIVE MEDICINE05/22/21 Irene Han, ACCOUNT SERVICES ASSOCIATE.TRAINING AND DEVELOPMENT DIRECTOR [address] [place] [address] Palliative Medicine ProviderHOSPICE & PALLIATIVE MEDICINE06/28/21 Kylie Mosher RN Specialty Care CoordinatorHOSPICE & PALLIATIVE MEDICINE09/27/21Team Member RelationshipSpecialty[place] [address] [place] [address] PCP - GeneralInternal Medicine05/07/16 [place] [address] [place] [address] ConsultingHematology/Kfzeoapk25/10/12 [place] [address] [place] [address] Specialty Care CoordinatorHematology/Oncology11/09/19 [place] [address] [place] [address] Hematology/Oncology03/30/21 Kristina Pete, MAE Specialty Care CoordinatorHOSPICE & PALLIATIVE MEDICINE05/22/21 Irene Han, ACCOUNT SERVICES ASSOCIATE.TRAINING AND DEVELOPMENT DIRECTOR [address] [place] [address] Palliative Medicine ProviderHOSPICE & PALLIATIVE MEDICINE06/28/21 Kylie Mosher RN Specialty Care CoordinatorHOSPICE & PALLIATIVE MEDICINE09/27/21Team Member [place]Special[place] [address] [place] [address] PCP - GeneralInternal Medicine05/07/16 [place] [address] [place] [address] ConsultingHematology/Xhobondf07/10/12 Marilyn Hughes, MAE [address] [place] [address] Specialty Care CoordinatorHematology/Oncology11/09/19 [place] [address] [place] [address] Hematology/Oncology03/30/21 Kristina Pete, MAE Specialty Care CoordinatorHOSPICE & PALLIATIVE MEDICINE05/22/21 Irene Han, ACCOUNT SERVICES ASSOCIATE.TRAINING AND DEVELOPMENT DIRECTOR [address] [place] [address] Palliative Medicine ProviderHOSPICE & PALLIATIVE MEDICINE06/28/21 Kylie Mosher RN Specialty Care CoordinatorHOSPICE & PALLIATIVE MEDICINE09/27/21Team Member RelationshipSpecialty[place] [address] [place] [address] PCP - GeneralInternal Medicine05/07/16 [place] [address] [place] [address] ConsultingHematology/Mhhwarun75/10/12 Mar[place] MAE [address] [place] [address] Specialty Care CoordinatorHematology/Oncology11/09/19 [place] [address] [place] [address] Hematology/Oncology03/30/21 Kristina Pete, MAE Specialty Care CoordinatorHOSPICE & PALLIATIVE MEDICINE05/22/21 Irene Han, ACCOUNT SERVICES ASSOCIATE.TRAINING AND DEVELOPMENT DIRECTOR [address] [place] [address] Palliative Medicine ProviderHOSPICE & PALLIATIVE MEDICINE06/28/21 Kylie Mosher RN Specialty Care CoordinatorHOSPICE & PALLIATIVE MEDICINE09/27/21Team Member RelationshipSpecialty[place] [address] [place] [address] PCP - GeneralInternal Medicine05/07/16 [place] [address] [place] [address] ConsultingHematology/Udanvvtq85/10/12 [place] [address] [facility] [place] [address] Hematology/Oncology03/30/21 Kristina Pete, MAE Specialty Care CoordinatorHOSPICE & PALLIATIVE MEDICINE05/22/21 Irene Han, ACCOUNT SERVICES ASSOCIATE.TRAINING AND DEVELOPMENT DIRECTOR [address] [place] [address] Palliative Medicine ProviderHOSPICE & PALLIATIVE MEDICINE06/28/21 Kylie Mosher, MAE Specialty Care CoordinatorHOSPICE & PALLIATIVE MEDICINE09/27/21Team Member RelationshipSpecialty[place] [address] [place] [address] PCP - GeneralInternal Medicine05/07/16 [place] [address] [place] [address] ConsultingHematology/Gzkeorul99/10/12 [place] [address] [place] [address] Hematology/Oncology03/30/21 Kristina Pete, MAE Specialty Care CoordinatorHOSPICE & PALLIATIVE MEDICINE05/22/21 Irene Han, ACCOUNT SERVICES ASSOCIATE.TRAINING AND DEVELOPMENT DIRECTOR [address] [place] [address] Palliative Medicine ProviderHOSPICE & PALLIATIVE MEDICINE06/28/21 Kylie Mosher, MAE Specialty Care CoordinatorHOSPICE & PALLIATIVE MEDICINE09/27/21Team Member RelationshipSpecialty[place] [address] [place] [address] PCP - GeneralInternal Medicine05/07/16 [place] [address] [facility] [place] [address] ConsultingHematology/Hkrinpdd39/10/12 [place] [address] [facility] [place] [address] Hematology/Oncology03/30/21 Kristina Pete, MAE Specialty Care CoordinatorHOSPICE & PALLIATIVE MEDICINE05/22/21 Irene Han, ACCOUNT SERVICES ASSOCIATE.TRAINING AND DEVELOPMENT DIRECTOR [address] [place] [address] Palliative Medicine ProviderHOSPICE & PALLIATIVE MEDICINE06/28/21 Kylie Mosher RN Specialty Care CoordinatorHOSPICE & PALLIATIVE MEDICINE09/27/21Team Member RelationshipSpecial[place] [address] [facility] [place] [address] PCP - GeneralInternal Medicine05/07/16 [place] [address] [place] [address] ConsultingHematology/Msnxlgah60/10/12 [place] [address] [place] [address] Hematology/Oncology03/30/21 Kristina Pete, MAE Specialty Care CoordinatorHOSPICE & PALLIATIVE MEDICINE05/22/21 Irene Han, ACCOUNT SERVICES ASSOCIATE.TRAINING AND DEVELOPMENT DIRECTOR [address] [place] [address] Palliative Medicine ProviderHOSPICE & PALLIATIVE MEDICINE06/28/21 Kylie Mosher RN Specialty Care CoordinatorHOSPICE & PALLIATIVE MEDICINE09/27/21Team Member RelationshipSpecialty[place] [address] [place] [address] PCP - GeneralInternal Medicine05/07/16 [place] [address] [place] [address] ConsultingHematology/Foulytgz29/10/12 [place] [address] [place] [address] Hematology/Oncology03/30/21 Kristina Pete, MAE Specialty Care CoordinatorHOSPICE & PALLIATIVE MEDICINE05/22/21 Irene Han, ACCOUNT SERVICES ASSOCIATE.TRAINING AND DEVELOPMENT DIRECTOR [address] [place] [address] Palliative Medicine ProviderHOSPICE & PALLIATIVE MEDICINE06/28/21 Kylie Mosher RN Specialty Care CoordinatorHOSPICE & PALLIATIVE MEDICINE09/27/21Team Member RelationshipSpecialty[place] [address] [place] [address] PCP - GeneralInternal Medicine05/07/16 [place] [address] [place] [address] ConsultingHematology/Zrkagfik34/10/12 [place] [address] [place] [address] Hematology/Oncology03/30/21 Kristina Pete RN Specialty Care CoordinatorHOSPICE & PALLIATIVE MEDICINE05/22/21 Irene Han, ACCOUNT SERVICES ASSOCIATE.TRAINING AND DEVELOPMENT DIRECTOR [address] [place] [address] Palliative Medicine ProviderHOSPICE & PALLIATIVE MEDICINE06/28/21 Kylie Mosher RN Specialty Care CoordinatorHOSPICE & PALLIATIVE MEDICINE09/27/21Team Member RelationshipSpecialty[place] [address] [facility] [place] [address] PCP - GeneralInternal Medicine05/07/16 [place] [address] [facility] [place] [address] ConsultingHematology/Wcejdiyp20/10/12 [place] [address] [place] [address] Hematology/Oncology03/30/21 Kristina Pete, MAE Specialty Care CoordinatorHOSPICE & PALLIATIVE MEDICINE05/22/21 Irene Han, ACCOUNT SERVICES ASSOCIATE.TRAINING AND DEVELOPMENT DIRECTOR [address] [place] [address] Palliative Medicine ProviderHOSPICE & PALLIATIVE MEDICINE06/28/21 Kylie Mosher RN Specialty Care CoordinatorHOSPICE & PALLIATIVE MEDICINE09/27/21Team Member RelationshipSpecialtyStart DateEnd Date Bee Vail MD [facility] [place] [address] PCP - GeneralInternal Medicine05/07/16 [place] [address] [facility] [place] [address] ConsultingHematology/Ysyukujk23/10/12 [place] [address] [place] [address] Hematology/Oncology03/30/21 Kristina Pete, RN Specialty Care CoordinatorHOSPICE & PALLIATIVE MEDICINE05/22/21 Irene Han, ACCOUNT SERVICES ASSOCIATE.TRAINING AND DEVELOPMENT DIRECTOR [address] [place] [address] Palliative Medicine ProviderHOSPICE & PALLIATIVE MEDICINE06/28/21 Kylie Mosher, RN Specialty Care CoordinatorHOSPICE & PALLIATIVE MEDICINE09/27/21Team Member RelationshipSpecialtyStkerrick [place] [address] PCP - GeneralInternal Medicine05/07/16 [place] [address] [place] [address] ConsultingHematology/Nhstonrz01/10/12 [place] [address] Hematology/Oncology03/30/21 Kristina Pete RN Specialty Care CoordinatorHOSPICE & PALLIATIVE MEDICINE05/22/21 Irene Han, ACCOUNT SERVICES ASSOCIATE.TRAINING AND DEVELOPMENT DIRECTOR [address] [place] [address] Palliative Medicine ProviderHOSPICE & PALLIATIVE MEDICINE06/28/21 Kylie Mosher, MAE Specialty Care CoordinatorHOSPICE & PALLIATIVE MEDICINE09/27/21Team Member RelationshipSpecialtyStart [place] [address] PCP - GeneralInternal Medicine05/07/16 [place] [address] ConsultingHematology/Llfvhpmx14/10/12 [place] [address] [place] [address] Hematology/Oncology03/30/21 Kristina Pete, MAE Specialty Care CoordinatorHOSPICE & PALLIATIVE MEDICINE05/22/21 Irene Han, ACCOUNT SERVICES ASSOCIATE.TRAINING AND DEVELOPMENT DIRECTOR [address] [place] [address] Palliative Medicine ProviderHOSPICE & PALLIATIVE MEDICINE06/28/21 Kylie Mosher, RN Specialty Care CoordinatorHOSPICE & PALLIATIVE MEDICINE09/27/21Team Member RelationshipSpecialty[place] [address] [place] [address] PCP - GeneralInternal Medicine05/07/16 [place] [address] [place] [address] ConsultingHematology/Lthjfydn72/10/12 [place] [address] [place] [address] Hematology/Oncology03/30/21 Kristina Pete, MAE Specialty Care CoordinatorHOSPICE & PALLIATIVE MEDICINE05/22/21 Irene Han, ACCOUNT SERVICES ASSOCIATE.TRAINING AND DEVELOPMENT DIRECTOR [address] [place] [id number] Palliative Medicine ProviderHOSPICE & PALLIATIVE MEDICINE06/28/21 Kylie Mosher RN Specialty Care CoordinatorHOSPICE & PALLIATIVE MEDICINE09/27/21Team Member RelationshipSpecialtyStart [place] [address] PCP - GeneralInternal Medicine05/07/16 [place] [address] [place] [address] ConsultingHematology/Ejmwxpha09/10/12 [place] [address] [place] [address] Hematology/Oncology03/30/21 Yanesh, Kristina, RN Specialty Care CoordinatorHOSPICE & PALLIATIVE MEDICINE05/22/21 Irene Han, ACCOUNT SERVICES ASSOCIATE.TRAINING AND DEVELOPMENT DIRECTOR [address] [place] [address] Palliative Medicine ProviderHOSPICE & PALLIATIVE MEDICINE06/28/21 Kylie Mosher RN Specialty Care CoordinatorHOSPICE & PALLIATIVE MEDICINE09/27/21Team Member RelationshipSpecialty[place] [address] [place] [address] PCP - GeneralInternal Medicine05/07/16 [place] [address] [place] [address] ConsultingHematology/Ekbjogrp44/10/12 [place] [address] [place] [address] Hematology/Oncology03/30/21 Kristina Pete RN Specialty Care CoordinatorHOSPICE & PALLIATIVE MEDICINE05/22/21 Irene Han, ACCOUNT SERVICES ASSOCIATE.TRAINING AND DEVELOPMENT DIRECTOR [address] [place] [address] Palliative Medicine ProviderHOSPICE & PALLIATIVE MEDICINE06/28/21 Kylie Mosher RN Specialty Care CoordinatorHOSPICE & PALLIATIVE MEDICINE09/27/21Team Member RelationshipSpecialtyStart [place] [address] PCP - GeneralInternal Medicine05/07/16 [place] [address] [place] [address] ConsultingHematology/Qjufedal08/10/12 [place] [address] [place] [address] Hematology/Oncology03/30/21 Kristina Pete, MAE Specialty Care CoordinatorHOSPICE & PALLIATIVE MEDICINE05/22/21 Irene Han, ACCOUNT SERVICES ASSOCIATE.TRAINING AND DEVELOPMENT DIRECTOR [address] [place] [address] Palliative Medicine ProviderHOSPICE & PALLIATIVE MEDICINE06/28/21 Kylie Mosher, RN Specialty Care CoordinatorHOSPICE & PALLIATIVE MEDICINE09/27/21Team Member RelationshipSpecialtyStker[place] [address] [place] [address] PCP - GeneralInternal Medicine05/07/16 [place] [address] [place] [address] ConsultingHematology/Iaycbkqy89/10/12 [place] [address] [place] [address] Hematology/Oncology03/30/21 Kristina Pete, MAE Specialty Care CoordinatorHOSPICE & PALLIATIVE MEDICINE05/22/21 Irene Han, ACCOUNT SERVICES ASSOCIATE.TRAINING AND DEVELOPMENT DIRECTOR [address] [place] [address] Palliative Medicine ProviderHOSPICE & PALLIATIVE MEDICINE06/28/21 Kylie Mosher, RN Specialty Care CoordinatorHOSPICE & PALLIATIVE MEDICINE09/27/21Team Member RelationshipSpecialtyStkerrick [place] [address] [place] [address] PCP - GeneralInternal Medicine05/07/16 [place] [address] [place] [address] ConsultingHematology/Sydkgjfj84/10/12 [place] [address] [place] [address] Hematology/Oncology03/30/21 Kristina Pete, RN Specialty Care CoordinatorHOSPICE & PALLIATIVE MEDICINE05/22/21 Irene Han, ACCOUNT SERVICES ASSOCIATE.TRAINING AND DEVELOPMENT DIRECTOR [address] [place] [address] Palliative Medicine ProviderHOSPICE & PALLIATIVE MEDICINE06/28/21 Kylie Mosher, RN Specialty Care CoordinatorHOSPICE & PALLIATIVE MEDICINE09/27/21Team Member RelationshipSpecialty[place] [address] [place] [address] PCP - GeneralInternal Medicine05/07/16 [place] [address] [place] [address] ConsultingHematology/Kblskbhz97/10/12 [place] [address] [place] [address] Hematology/Oncology03/30/21 Irene Han, ACCOUNT SERVICES ASSOCIATE.TRAINING AND DEVELOPMENT DIRECTOR [address] [place] [address] Palliative Medicine ProviderHOSPICE & PALLIATIVE MEDICINE06/28/21 Kylie Mosher, RN Specialty Care CoordinatorHOSPICE & PALLIATIVE MEDICINE09/27/21Team Member RelationshipSpecialty[place] [address] [place] [address] PCP - GeneralInternal Medicine05/07/16 [place] [address] [place] [address] ConsultingHematology/Ogcuzzxn08/10/12 [place] [address] [place] [address] Hematology/Oncology03/30/21 Irene Han, ACCOUNT SERVICES ASSOCIATE.TRAINING AND DEVELOPMENT DIRECTOR [address] [place] [address] Palliative Medicine ProviderHOSPICE & PALLIATIVE MEDICINE06/28/21 Kylie Mosher RN Specialty Care CoordinatorHOSPICE & PALLIATIVE MEDICINE09/27/21Team Member RelationshipSpecialty[place] [address] [place] [address] PCP - GeneralInternal Medicine05/07/16 [place] [address] [place] [address] ConsultingHematology/Issjirml74/10/12 [place] [address] [place] [address] Hematology/Oncology03/30/21 Irene Han, ACCOUNT SERVICES ASSOCIATE.TRAINING AND DEVELOPMENT DIRECTOR [address] [place] [address] Palliative Medicine ProviderHOSPICE & PALLIATIVE MEDICINE06/28/21 Kylie Mosher RN Specialty Care CoordinatorHOSPICE & PALLIATIVE MEDICINE09/27/21Team Member RelationshipSpecialty[place] [address] [place] [address] PCP - GeneralInternal Medicine05/07/16 [place] [address] [place] [address] ConsultingHematology/Tajoobmy96/10/12 [place] [address] [place] [address] Hematology/Oncology03/30/21 Irene Han, ACCOUNT SERVICES ASSOCIATE.TRAINING AND DEVELOPMENT DIRECTOR [address] [place] [id number] Palliative Medicine ProviderHOSPICE & PALLIATIVE MEDICINE06/28/21 Kylie Mosher, RN Specialty Care CoordinatorHOSPICE & PALLIATIVE MEDICINE09/27/21Team Member RelationshipSpecialty[place] [address] [facility] [place] [address] PCP - GeneralInternal Medicine05/07/16 [place] [address] [facility] [place] [address] ConsultingHematology/Sainjnwf08/10/12 [place] [address] [facility] [place] [address] Hematology/Oncology03/30/21 Irene Han, ACCOUNT SERVICES ASSOCIATE.TRAINING AND DEVELOPMENT DIRECTOR [address] [place] [id number] Palliative Medicine ProviderHOSPICE & PALLIATIVE MEDICINE06/28/21 Kylie Mosher, RN Specialty Care CoordinatorHOSPICE & PALLIATIVE MEDICINE09/27/21Team Member RelationshipSpecialty[place] [address] [facility] [place] [address] PCP - GeneralInternal Medicine05/07/16 [place] [address] [facility] [place] [address] ConsultingHematology/Htoxvjnr90/10/12 [place] [address] [place] [address] Hematology/Oncology03/30/21 Irene Han, ACCOUNT SERVICES ASSOCIATE.TRAINING AND DEVELOPMENT DIRECTOR [address] [place] [id number] Palliative Medicine ProviderHOSPICE & PALLIATIVE MEDICINE06/28/21 Kylie Mosher, RN Specialty Care CoordinatorHOSPICE & PALLIATIVE MEDICINE09/27/21Team Member RelationshipSpecial[place] [address] [place] [address] PCP - GeneralInternal Medicine05/07/16 [place] [address] [place] [address] ConsultingHematology/Jotuqher77/10/12 [place] [address] [place] [address] Hematology/Oncology03/30/21 Irene Han, ACCOUNT SERVICES ASSOCIATE.TRAINING AND DEVELOPMENT DIRECTOR [address] [place] [address] Palliative Medicine ProviderHOSPICE & PALLIATIVE MEDICINE06/28/21 Kylie Mosher, RN Specialty Care CoordinatorHOSPICE & PALLIATIVE MEDICINE09/27/21Team Member RelationshipSpecialty[place] [address] [facility] [place] [address] PCP - GeneralInternal Medicine05/07/16 [place] [address] [place] [address] ConsultingHematology/Rylasjcj85/10/12 [place] [address] [place] [address] Hematology/Oncology03/30/21 Irene Han, ACCOUNT SERVICES ASSOCIATE.TRAINING AND DEVELOPMENT DIRECTOR [address] [place] [address] Palliative Medicine ProviderHOSPICE & PALLIATIVE MEDICINE06/28/21 Kylie Mosher RN Specialty Care CoordinatorHOSPICE & PALLIATIVE MEDICINE09/27/21Team Member RelationshipSpecialty[place] [address] [place] [address] PCP - GeneralInternal Medicine05/07/16 [place] [address] [place] [address] ConsultingHematology/Klfjhydt70/10/12 [place] [address] [place] [address] Hematology/Oncology03/30/21 Irene Han, ACCOUNT SERVICES ASSOCIATE.TRAINING AND DEVELOPMENT DIRECTOR [address] [place] [address] Palliative Medicine ProviderHOSPICE & PALLIATIVE MEDICINE06/28/21 Kylie Mosher RN Specialty Care CoordinatorHOSPICE & PALLIATIVE MEDICINE09/27/21Team Member RelationshipSpecialty[place] [address] [place] [address] PCP - GeneralInternal Medicine05/07/16 [place] [address] [place] [address] ConsultingHematology/Dgmtnfnu88/10/12 [place] [address] [place] [address] Hematology/Oncology03/30/21 Kristina Pete, MAE Specialty Care CoordinatorHOSPICE & PALLIATIVE MEDICINE Irene Han, ACCOUNT SERVICES ASSOCIATE.TRAINING AND DEVELOPMENT DIRECTOR [address] [place] [address] Palliative Medicine ProviderHOSPICE & PALLIATIVE MEDICINE06/28/21 Kylie Mosher RN Specialty Care CoordinatorHOSPICE & PALLIATIVE MEDICINE09/27/21Team Member [place]Special[place] [address] [place] [address] PCP - GeneralInternal Medicine05/07/16 [place] [address] [place] [address] ConsultingHematology/Oybpgrtt89/10/12 [place] [address] [place] [address] Hematology/Oncology03/30/21 Ireen Hna, ACCOUNT SERVICES ASSOCIATE.TRAINING AND DEVELOPMENT DIRECTOR [address] [place], [place] [address] Palliative Medicine ProviderHOSPICE & PALLIATIVE MEDICINE06/28/21 Kylie Mosher, RN Specialty Care CoordinatorHOSPICE & PALLIATIVE MEDICINE09/27/21Team Member RelationshipSpecialtySt[place] [address] [place] [address] PCP - GeneralInternal Medicine05/07/16 [place] [address] [place] [address] ConsultingHematology/Hgwyvfbz53/10/12 [place] [address] [facility] [place] [address] Hematology/Oncology03/30/21 Irene Han, OLRY.TRAINING AND DEVELOPMENT DIRECTOR [address] [place] [address] Palliative Medicine ProviderHOSPICE & PALLIATIVE MEDICINE06/28/21 Kylie Mosher, RN Specialty Care CoordinatorHOSPICE & PALLIATIVE MEDICINE09/27/21Team Member RelationshipSpecialty[place] [address] [place] [address] PCP - GeneralInternal Medicine05/07/16 [place] [address] [place] [address] ConsultingHematology/Rkpkmfmf32/10/12 [place] [address] [facility] [place] [address] Hematology/Oncology03/30/21 Irene Han, ACCOUNT SERVICES ASSOCIATE.TRAINING AND DEVELOPMENT DIRECTOR [address] [place] [address] Palliative Medicine ProviderHOSPICE & PALLIATIVE MEDICINE06/28/21 Kylie Mosher RN Specialty Care CoordinatorHOSPICE & PALLIATIVE MEDICINE09/27/21Team Member RelationshipSpecialtyStker[place] [address] [place] [address] PCP - GeneralInternal Medicine05/07/16 [place] [address] [place] [address] ConsultingHematology/Dbcqyntu25/10/12 [place] [address] [facility] [place] [address] Hematology/Oncology03/30/21 Irene Han, ACCOUNT SERVICES ASSOCIATE.TRAINING AND DEVELOPMENT DIRECTOR [address] [place] [id number] Palliative Medicine ProviderHOSPICE & PALLIATIVE MEDICINE06/28/21 Kylie Mosher RN Specialty Care CoordinatorHOSPICE & PALLIATIVE MEDICINE09/27/21Team Member RelationshipSpecialty[place] [address] [place] [address] PCP - GeneralInternal Medicine05/07/16 [place] [address] [facility] [place] [address] ConsultingHematology/Dddjmmti90/10/12 [place] [address] [place] [address] Hematology/Oncology03/30/21 Irene Han, ACCOUNT SERVICES ASSOCIATE.TRAINING AND DEVELOPMENT DIRECTOR [address] [place] [address] Palliative Medicine ProviderHOSPICE & PALLIATIVE MEDICINE06/28/21 Kylie Mosher, RN Specialty Care CoordinatorHOSPICE & PALLIATIVE MEDICINE09/27/21Team Member RelationshipSpecialty[place] [address] [place] [address] PCP - GeneralInternal Medicine05/07/16 [place] [address] [place] [address] ConsultingHematology/Txamdefk97/10/12 [place] [address] [place] [address] Hematology/Oncology03/30/21 Irene Han, ACCOUNT SERVICES ASSOCIATE.TRAINING AND DEVELOPMENT DIRECTOR [address] [place] [address] Palliative Medicine ProviderHOSPICE & PALLIATIVE MEDICINE06/28/21 Kylie Mosher, RN Specialty Care CoordinatorHOSPICE & PALLIATIVE MEDICINE09/27/21Team Member RelationshipSpecialty[place] [address] [place] [address] PCP - GeneralInternal Medicine05/07/16 [place] [address] [place] [address] ConsultingHematology/Idxntphz72/10/12 [place] [address] [place] [address] Hematology/Oncology03/30/21 Irene Han, ACCOUNT SERVICES ASSOCIATE.TRAINING AND DEVELOPMENT DIRECTOR [address] [place] [id number] Palliative Medicine ProviderHOSPICE & PALLIATIVE MEDICINE06/28/21 Kylie Mosher, RN Specialty Care CoordinatorHOSPICE & PALLIATIVE MEDICINE09/27/21Team Member RelationshipSpecialty[place] [address] [place] [id number] PCP - GeneralInternal Medicine05/07/16 [place] [address] [place] [address] ConsultingHematology/Bobxjhnn94/10/12 [place] [address] [place] [address] Hematology/Oncology03/30/21 Irene Han, ACCOUNT SERVICES ASSOCIATE.TRAINING AND DEVELOPMENT DIRECTOR [address] [place] [address] Palliative Medicine ProviderHOSPICE & PALLIATIVE MEDICINE06/28/21 Kylie Mosher RN Specialty Care CoordinatorHOSPICE & PALLIATIVE MEDICINE09/27/21Team Member RelationshipSpecialty[place] [address] [place] [address] PCP - GeneralInternal Medicine05/07/16 [place] [address] [place] [address] ConsultingHematology/Myeghtpn75/10/12 [place] [address] [place] [address] Hematology/Oncology03/30/21 Irene Han, LORY.TRAINING AND DEVELOPMENT DIRECTOR [address] [place] [address] Palliative Medicine ProviderHOSPICE & PALLIATIVE MEDICINE06/28/21 Kylie Mosher RN Specialty Care CoordinatorHOSPICE & PALLIATIVE MEDICINE09/27/21Team Member RelationshipSpecialty[place] [address] [place] [address] PCP - GeneralInternal Medicine05/07/16 [place] [address] [place] [address] ConsultingHematology/Ivkkxplo58/10/12 [place] [address] [place] [address] Hematology/Oncology03/30/21 Irene Han, LORY.TRAINING AND DEVELOPMENT DIRECTOR [address] [place] [address] Palliative Medicine ProviderHOSPICE & PALLIATIVE MEDICINE06/28/21 Kylie Mosher RN Specialty Care CoordinatorHOSPICE & PALLIATIVE MEDICINE09/27/21Team Member RelationshipSpecialty[place] [address] [place] [address] PCP - GeneralInternal Medicine05/07/16 [place] [address] [place] [address] ConsultingHematology/Rouwxpsl93/10/12 [place] [address] [place] [address] Hematology/Oncology03/30/21 Irene Han, ACCOUNT SERVICES ASSOCIATE.TRAINING AND DEVELOPMENT DIRECTOR [address] [place], [place] [address] [address] Palliative Medicine ProviderHOSPICE & PALLIATIVE MEDICINE06/28/21 Kylie Mosher, RN Specialty Care CoordinatorHOSPICE & PALLIATIVE MEDICINE09/27/21Team Member RelationshipSpecialty[place] [address] [place] [address] PCP - GeneralInternal Medicine05/07/16 [place] [address] [place] [address] ConsultingHematology/Lsgkjrsv95/10/12 [place] [address] [place] [address] Hematology/Oncology03/30/21 Irene Han, ACCOUNT SERVICES ASSOCIATE.TRAINING AND DEVELOPMENT DIRECTOR [address] [place] [phone] Palliative Medicine ProviderHOSPICE & PALLIATIVE MEDICINE06/28/21 Kylie Mosher, RN Specialty Care CoordinatorHOSPICE & PALLIATIVE MEDICINE09/27/21Team Member RelationshipSpecialty[place] [address] [place] [address] PCP - GeneralInternal Medicine05/07/16 [place] [address] [place] [address] ConsultingHematology/Wgmngkcc08/10/12 [place] [address] [place] [address] Hematology/Oncology03/30/21 Irene Han, ACCOUNT SERVICES ASSOCIATE.TRAINING AND DEVELOPMENT DIRECTOR [address] [place] [address] Palliative Medicine ProviderHOSPICE & PALLIATIVE MEDICINE06/28/21 Kylie Mosher, RN Specialty Care CoordinatorHOSPICE & PALLIATIVE MEDICINE09/27/21 Team Status: Active Member Role Status Dates Bee Vail MD Primary Care Provider Active Team Status: Inactive Member Role Status Dates Bee Vail MD Primary Care Provider Active Keke Bright NUCLEAR POWERPLANT MECHANIC-CAttending ProviderActiveTeam MemberRelationshipSpecialty Start DateEnd Date Bee Vail MD PCP - GeneralInternal Medicine05/07/16 Irene Han, ACCOUNT SERVICES ASSOCIATE.TRAINING AND DEVELOPMENT DIRECTOR [address] [place] [address] Palliative Medicine ProviderHospice & Palliative Medicine06/28/21 Kylie Mosher RN Specialty Care CoordinatorHospice & Palliative Medicine09/27/21 Ruperto Ledezma MD [address] [place] [address] [place] [address] FhuepfynrFzjozivsoa23/22/23 Ellyn Keller, ACCOUNT SERVICES ASSOCIATE.TRAINING AND DEVELOPMENT DIRECTOR [address] [facility] [place] [address] ReferringNurse Practitioner02/26/23 Ellyn Keller, ACCOUNT SERVICES ASSOCIATE.TRAINING AND DEVELOPMENT DIRECTOR [address] [facility] [place] [address] ReferringNurse Practitioner03/06/23 Fabiana Johnson LSW Social Worker03/08/23Team MemberRelationshipSpecialtyStart DateEnd Bee Vail MD PCP - GeneralInternal Medicine05/07/16 Irene Han, ACCOUNT SERVICES ASSOCIATE.TRAINING AND DEVELOPMENT DIRECTOR [address] [place] [address] Palliative Medicine ProviderHospice & Palliative Medicine06/28/21 Kylie Mosher RN Specialty Care CoordinatorHospice & Palliative Medicine09/27/21 Ruperto Ledezma MD [address] [place] [address] [place] [address] KywcxmfjxAdtmhjhrpq80/22/23 Ellyn Keller, ACCOUNT SERVICES ASSOCIATE.TRAINING AND DEVELOPMENT DIRECTOR [address] [facility] [place] [address] ReferringNurse Practitioner02/26/23 Ellyn Keller, ACCOUNT SERVICES ASSOCIATE.TRAINING AND DEVELOPMENT DIRECTOR [address] [facility] [place] [address] ReferringNurse Practitioner03/06/23 Fabiana Johnson LSW Social Worker03/08/23Team MemberRelationshipSpecialtyStart DateEnd Date Bee Vail MD PCP - GeneralInternal Medicine05/07/16 Irene Han, ACCOUNT SERVICES ASSOCIATE.TRAINING AND DEVELOPMENT DIRECTOR [address] [place] [address] Palliative Medicine ProviderHospice & Palliative Medicine06/28/21 Kylie Mosher, RN Specialty Care CoordinatorHospice & Palliative Medicine09/27/21 Ruperto Ledezma MD [address] [place] [address] [place] [address] WmmanavfjTawivhewca32/22/23 Ellyn Keller, ACCOUNT SERVICES ASSOCIATE.TRAINING AND DEVELOPMENT DIRECTOR [address] [facility] [place] [address] ReferringNurse Practitioner02/26/23 Ellyn Keller, ACCOUNT SERVICES ASSOCIATE.TRAINING AND DEVELOPMENT DIRECTOR [address] [facility] [place] [address] ReferringNurse Practitioner03/06/23 Fabiana Johnson LSW Social Worker03/08/23Team MemberRelationshipSpecialtyStart DateEnd Date Bee Vail MD PCP - GeneralInternal Medicine05/07/16 Irene Han, ACCOUNT SERVICES ASSOCIATE.TRAINING AND DEVELOPMENT DIRECTOR [facility] [place] [address] Palliative Medicine ProviderHospice & Palliative Medicine06/28/21 Kylie Mosher RN Specialty Care CoordinatorHospice & Palliative Medicine09/27/21 Ruperto Ledezma MD [address] [place] [address] [place] [address] DrssjideiIsijajflao30/22/23 Ellyn Keller, ACCOUNT SERVICES ASSOCIATE.TRAINING AND DEVELOPMENT DIRECTOR [address] [facility] [place] [address] ReferringNurse Practitioner02/26/23 Ellyn Keller, ACCOUNT SERVICES ASSOCIATE.TRAINING AND DEVELOPMENT DIRECTOR [address] [facility] [place] [address] ReferringNurse Practitioner03/06/23 Fabiana Johnson LSW Social Worker03/08/23Team MemberRelationshipSpecialtyStart DateEnd Date Bee Vail MD [address] [facility] [place] [address] PCP - [employer]02/18/22 Bee Vail MD [address] [facility] [place] [address] PCP - GeneralInternal Medicine06/26/22Team MemberRelationshipSpecialtyStart Date End Date Bee Vail MD PCP - GeneralInternal Medicine05/07/16 Irene Han, ACCOUNT SERVICES ASSOCIATE.TRAINING AND DEVELOPMENT DIRECTOR [address] [place] [address] Palliative Medicine ProviderHospice & Palliative Medicine06/28/21 Kylie Mosher RN Specialty Care CoordinatorHospice & Palliative Medicine09/27/21 Ruperto Ledezma MD [address] [place] [address] [place] [address] WnpvbxvorFhnfrwhlxa89/22/23 Ellyn Keller, ACCOUNT SERVICES ASSOCIATE.TRAINING AND DEVELOPMENT DIRECTOR [address] [facility] [place] [address] ReferringNurse Practitioner02/26/23 Ellyn Keller, ACCOUNT SERVICES ASSOCIATE.TRAINING AND DEVELOPMENT DIRECTOR [address] [facility] [place] [address] ReferringNurse Practitioner03/06/23 Fabiana Johnson, MANAGER STRATE[employer]IC MARKETING Social Worker03/08/23Team MemberRelationshipSpecialtyStart DateEnd Date Bee Vail MD PCP - GeneralInternal Medicine05/07/16 Irene Han, ACCOUNT SERVICES ASSOCIATE.TRAINING AND DEVELOPMENT DIRECTOR [address] [place] [address] Palliative Medicine ProviderHospice & Palliative Medicine06/28/21 Kylie Mosher, RN Specialty Care CoordinatorHospice & Palliative Medicine09/27/21 Ruperto Ledezma MD [address] [place] [address] [place] [address] XtnbdzptlLbnrsjkujc40/22/23 Ellyn Keller, ACCOUNT SERVICES ASSOCIATE.TRAINING AND DEVELOPMENT DIRECTOR [address] [facility] [place] [address] ReferringNurse Practitioner02/26/23 Ellyn Keller, ACCOUNT SERVICES ASSOCIATE.TRAINING AND DEVELOPMENT DIRECTOR [address] [facility] [place] [address] ReferringNurse Practitioner03/06/23 Fabiana Johnson, MANAGER STRATEGIC MARKETING Social Worker03/08/23Team MemberRelationshipSpecialtyStart DateEnd Date Bee Vail MD PCP - GeneralInternal Medicine05/07/16 Irene Han, ACCOUNT SERVICES ASSOCIATE.TRAINING AND DEVELOPMENT DIRECTOR [address] [place] [address] Palliative Medicine ProviderHospice & Palliative Medicine06/28/21 Kylie Mosher, RN Specialty Care CoordinatorHospice & Palliative Medicine09/27/21 Ruperto Ledezma MD [address] [facility] [place] [address] IobcqwawoYewkzvmewy66/22/23 Ellyn Keller, ACCOUNT SERVICES ASSOCIATE.TRAINING AND DEVELOPMENT DIRECTOR [address] [facility] [place] [address] ReferringNurse Practitioner02/26/23 Ellyn Keller, ACCOUNT SERVICES ASSOCIATE.TRAINING AND DEVELOPMENT DIRECTOR [address] [facility] [place] [address] ReferringNurse Practitioner03/06/23 Fabiana Johnson LSW Social Worker03/08/23Team MemberRelationshipSpecialtyStart DateEnd Date Bee Vail MD PCP - GeneralInternal Medicine05/07/16 Irene Han, ACCOUNT SERVICES ASSOCIATE.TRAINING AND DEVELOPMENT DIRECTOR [address] [place] [address] Palliative Medicine ProviderHospice & Palliative Medicine06/28/21 Kylie Mosher, RN Specialty Care CoordinatorHospice & Palliative Medicine09/27/21 Ruperto Ledezma MD [address] [facility] [place] [address] IyzygmqvbJmftwtbmvd70/22/23 Ellyn Keller, ACCOUNT SERVICES ASSOCIATE.TRAINING AND DEVELOPMENT DIRECTOR [address] [facility] [place] [address] ReferringNurse Practitioner02/26/23 Ellyn Keller, ACCOUNT SERVICES ASSOCIATE.TRAINING AND DEVELOPMENT DIRECTOR [address] [facility] [place] [address] ReferringNurse Practitioner03/06/23 Fabiana Johnson, MANAGER STRATEGIC MARKETING Social Worker03/08/23Team MemberRelationshipSpecialtyStart DateEnd Date Bee Vail MD PCP - GeneralInternal Medicine05/07/16 Irene Han, ACCOUNT SERVICES ASSOCIATE.TRAINING AND DEVELOPMENT DIRECTOR [address] [place] [address] Palliative Medicine ProviderHospice & Palliative Medicine06/28/21 Kylie Mosher, RN Specialty Care CoordinatorHospice & Palliative Medicine09/27/21 Ruperto Ledezma MD [address] [place] [address] [place] [address] HjwomzuqcSsfixplepc98/22/23 Ellyn Keller, ACCOUNT SERVICES ASSOCIATE.TRAINING AND DEVELOPMENT DIRECTOR [address] [facility] [place] [address] ReferringNurse Practitioner02/26/23 Ellyn Keller, ACCOUNT SERVICES ASSOCIATE.TRAINING AND DEVELOPMENT DIRECTOR [address] [facility] [place] [address] ReferringNurse Practitioner03/06/23 Fabiana Johnson, MANAGER STRATE[employer]IC MARKETING Social Worker03/08/23Team MemberRelationshipSpecialtyStart DateEnd Date Bee Vail MD PCP - GeneralInternal Medicine05/07/16 Irene Han, ACCOUNT SERVICES ASSOCIATE.TRAINING AND DEVELOPMENT DIRECTOR [address] [place] [address] Palliative Medicine ProviderHospice & Palliative Medicine06/28/21 Kylie Mosher, RN Specialty Care CoordinatorHospice & Palliative Medicine09/27/21 Ruperto Ledezma MD [address] [facility] [place] [address] XbignzkvvDuqwlizljj45/22/23 Ellyn Keller, ACCOUNT SERVICES ASSOCIATE.TRAINING AND DEVELOPMENT DIRECTOR [address] [facility] [place] [address] ReferringNurse Practitioner02/26/23 Ellyn Keller, ACCOUNT SERVICES ASSOCIATE.TRAINING AND DEVELOPMENT DIRECTOR [address] [facility] [place] [address] ReferringNurse Practitioner03/06/23 Fabiana Johnson LSW Social Worker03/08/23Team MemberRelationshipSpecialtyStart DateEnd Bee Vail MD PCP - GeneralInternal Medicine05/07/16 Irene Han, ACCOUNT SERVICES ASSOCIATE.TRAINING AND DEVELOPMENT DIRECTOR [address] [place] [address] Palliative Medicine ProviderHospice & Palliative Medicine06/28/21 Kylie Mosher, RN Specialty Care CoordinatorHospice & Palliative Medicine09/27/21 Ruperto Ledezma MD [address] [facility] [place] [address] UifiycaiuFkuxnkebvo51/22/23 Ellyn Keller, ACCOUNT SERVICES ASSOCIATE.TRAINING AND DEVELOPMENT DIRECTOR [address] [facility] [place] [address] ReferringNurse Practitioner02/26/23 Ellyn Keller, ACCOUNT SERVICES ASSOCIATE.TRAINING AND DEVELOPMENT DIRECTOR [address] [facility] [place] [address] ReferringNurse Practitioner03/06/23 Fabiana Johnson, MANAGER STRATE[employer]IC MARKETING Social Worker03/08/23Team MemberRelationshipSpecialtyStart DateEnd Date Bee Vail MD PCP - GeneralInternal Medicine05/07/16 Irene Han, ACCOUNT SERVICES ASSOCIATE.TRAINING AND DEVELOPMENT DIRECTOR [address] [place] [address] Palliative Medicine ProviderHospice & Palliative Medicine06/28/21 Kylie Mosher, RN Specialty Care CoordinatorHospice & Palliative Medicine09/27/21 Ruperto Ledezma MD [address] [place] [address] [place] [address] GrynxqqmfCprsnnkvkl36/22/23 Ellyn Keller, ACCOUNT SERVICES ASSOCIATE.TRAINING AND DEVELOPMENT DIRECTOR [address] [facility] [place] [address] ReferringNurse Practitioner02/26/23 Ellyn Keller, ACCOUNT SERVICES ASSOCIATE.TRAINING AND DEVELOPMENT DIRECTOR [address] [facility] [place] [address] ReferringNurse Practitioner03/06/23 Fabiana Johnson, MANAGER STRATE[employer]IC MARKETING Social Worker03/08/23Team MemberRelationshipSpecialtyStart DateEnd Date Bee Vail MD PCP - GeneralInternal Medicine05/07/16 Irene Han, ACCOUNT SERVICES ASSOCIATE.TRAINING AND DEVELOPMENT DIRECTOR [address] [place] [address] Palliative Medicine ProviderHospice & Palliative Medicine06/28/21 Kylie Mosher, RN Specialty Care CoordinatorHospice & Palliative Medicine09/27/21 Ruperto Ledezma MD [address] [facility] [place] [address] CqgfynuhsJcqqutrvkt32/22/23 Ellyn Keller, ACCOUNT SERVICES ASSOCIATE.TRAINING AND DEVELOPMENT DIRECTOR [address] [facility] [place] [address] ReferringNurse Practitioner02/26/23 Ellyn Keller, ACCOUNT SERVICES ASSOCIATE.TRAINING AND DEVELOPMENT DIRECTOR [address] [facility] [place] [address] ReferringNurse Practitioner03/06/23 Fabiana Johnson LSW Social Worker03/08/23Team MemberRelationshipSpecialtyStart DateEnd Bee Vail MD PCP - GeneralInternal Medicine05/07/16 Irene Han, ACCOUNT SERVICES ASSOCIATE.TRAINING AND DEVELOPMENT DIRECTOR [address] [place] [address] Palliative Medicine ProviderHospice & Palliative Medicine06/28/21 Kylie Mosher, RN Specialty Care CoordinatorHospice & Palliative Medicine09/27/21 Ruperto Ldeezma MD [address] [facility] [address] [place], [place] [address] SvxbtnvmaRpptwtswyr02/22/23 Ellyn Keller, ACCOUNT SERVICES ASSOCIATE.TRAINING AND DEVELOPMENT DIRECTOR [address] [facility] [place] [address] ReferringNurse Practitioner02/26/23 Ellyn Keller, ACCOUNT SERVICES ASSOCIATE.TRAINING AND DEVELOPMENT DIRECTOR [address] [facility] [place] [address] ReferringNurse Practitioner03/06/23 Fabiana Johnson, MANAGER STRATEGIC MARKETING Social Worker03/08/23Team MemberRelationshipSpecialtyStart DateEnd Date Bee Vail MD PCP - GeneralInternal Medicine05/07/16 Irene Han, ACCOUNT SERVICES ASSOCIATE.TRAINING AND DEVELOPMENT DIRECTOR [address] [place] [address] Palliative Medicine ProviderHospice & Palliative Medicine06/28/21 Kylie Mosher, RN Specialty Care CoordinatorHospice & Palliative Medicine09/27/21 Ruperto Ledezma MD [address] [place] [address] [place] [address] OufveqmhaLdxbtshgod33/22/23 Ellyn Keller, ACCOUNT SERVICES ASSOCIATE.TRAINING AND DEVELOPMENT DIRECTOR [address] [facility] [place] [address] ReferringNurse Practitioner02/26/23 Ellyn Keller, ACCOUNT SERVICES ASSOCIATE.TRAINING AND DEVELOPMENT DIRECTOR [address] [facility] [place] [address] ReferringNurse Practitioner03/06/23 Fabiana Johnson, MANAGER STRATEGIC MARKETING Social Worker03/08/23Team MemberRelationshipSpecialtyStart DateEnd Date Bee Vail MD PCP - GeneralInternal Medicine05/07/16 Irene Han, ACCOUNT SERVICES ASSOCIATE.TRAINING AND DEVELOPMENT DIRECTOR [address] [place] [address] Palliative Medicine ProviderHospice & Palliative Medicine06/28/21 Kylie Mosher, RN Specialty Care CoordinatorHospice & Palliative Medicine09/27/21 Ruperto Ledezma MD [address] [facility] [place] [address] FdyepxqawTnmacuevvl10/22/23 Ellyn Keller, ACCOUNT SERVICES ASSOCIATE.TRAINING AND DEVELOPMENT DIRECTOR [address] [facility] [place] [address] ReferringNurse Practitioner02/26/23 Ellyn Keller, ACCOUNT SERVICES ASSOCIATE.TRAINING AND DEVELOPMENT DIRECTOR [address] [facility] [place] [address] ReferringNurse Practitioner03/06/23 Fabiana Johnson LSW Social Worker03/08/23Team MemberRelationshipSpecialtyStart DateEnd Date Bee Vail MD PCP - GeneralInternal Medicine05/07/16 Irene Han, ACCOUNT SERVICES ASSOCIATE.TRAINING AND DEVELOPMENT DIRECTOR [address] [place] [address] Palliative Medicine ProviderHospice & Palliative Medicine06/28/21 Kylie Mosher, RN Specialty Care CoordinatorHospice & Palliative Medicine09/27/21 Ruperto Ledezma MD [address] [facility] [address] [place], [place] [address] YzqwbochcYhmwlwshoi29/22/23 Ellyn Keller, ACCOUNT SERVICES ASSOCIATE.TRAINING AND DEVELOPMENT DIRECTOR [address] [facility] [address] ReferringNurse Practitioner02/26/23 Ellyn Keller, ACCOUNT SERVICES ASSOCIATE.TRAINING AND DEVELOPMENT DIRECTOR [address] [facility] [address] ReferringNurse Practitioner03/06/23 Fabiana Johnson, MANAGER STRATEGIC MARKETING Social Worker03/08/23Team MemberRelationshipSpecialtyStart DateEnd Date Bee Vail MD PCP - GeneralInternal Medicine05/07/16 Irene Han, ACCOUNT SERVICES ASSOCIATE.TRAINING AND DEVELOPMENT DIRECTOR [address] [place] [address] Palliative Medicine ProviderHospice & Palliative Medicine06/28/21 Kylie Mosher, RN Specialty Care CoordinatorHospice & Palliative Medicine09/27/21 Ruperto Ledezma MD [address] [place] [address] [place] [address] EjmsphmqlDxymvybkjm28/22/23 Ellyn Keller, ACCOUNT SERVICES ASSOCIATE.TRAINING AND DEVELOPMENT DIRECTOR [address] [facility] [address] ReferringNurse Practitioner02/26/23 Ellyn Keller, ACCOUNT SERVICES ASSOCIATE.TRAINING AND DEVELOPMENT DIRECTOR [address] [facility] [address] ReferringNurse Practitioner03/06/23 Fabiana Johnson, MANAGER STRATEGIC MARKETING Social Worker03/08/23Team MemberRelationshipSpecialtyStart DateEnd Date Bee Vail MD PCP - GeneralInternal Medicine05/07/16 Irene Han, ACCOUNT SERVICES ASSOCIATE.TRAINING AND DEVELOPMENT DIRECTOR [address] [place] [address] Palliative Medicine ProviderHospice & Palliative Medicine06/28/21 Kylie Mosher, RN Specialty Care CoordinatorHospice & Palliative Medicine09/27/21 Ruperto Ledezma MD [address] [place] [address] [place] [address] QhbesuhqyIaxbgrgveu56/22/23 Ellyn Keller, ACCOUNT SERVICES ASSOCIATE.TRAINING AND DEVELOPMENT DIRECTOR [address] [facility] [address] ReferringNurse Practitioner02/26/23 Ellyn Keller, ACCOUNT SERVICES ASSOCIATE.TRAINING AND DEVELOPMENT DIRECTOR [address] [facility] [address] ReferringNurse Practitioner03/06/23 Fabiana Johnson LSW Social Worker03/08/23Team MemberRelationshipSpecialtyStart Date[facility] Date Bee Vail MD PCP - GeneralInternal Medicine05/07/16 Irene Han, ACCOUNT SERVICES ASSOCIATE.TRAINING AND DEVELOPMENT DIRECTOR [address] [place] [address] Palliative Medicine ProviderHospice & Palliative Medicine06/28/21 Kylie Mosher, RN Specialty Care CoordinatorHospice & Palliative Medicine09/27/21 Ruperto Ledezma MD [address] [place] [address] [place] [address] JttdfkbnoZmgansogjv69/22/23 Ellyn Keller, ACCOUNT SERVICES ASSOCIATE.TRAINING AND DEVELOPMENT DIRECTOR [address] [facility] [address] ReferringNurse Practitioner02/26/23 Ellyn Keller, ACCOUNT SERVICES ASSOCIATE.TRAINING AND DEVELOPMENT DIRECTOR [address] [facility] [address] ReferringNurse Practitioner03/06/23 Fabiana Johnson, [facility] Social Worker03/08/23Team MemberRelationshipSpecialtyStart DateEnd Date Bee Vail MD PCP - GeneralInternal Medicine05/07/16 Irene Han, ACCOUNT SERVICES ASSOCIATE.TRAINING AND DEVELOPMENT DIRECTOR [address] [place] [address] Palliative Medicine ProviderHospice & Palliative Medicine06/28/21 Kylie Mosher, RN Specialty Care CoordinatorHospice & Palliative Medicine09/27/21 Ruperto Ledezma MD [address] [place] [address] [place] [address] IuahhxrekPphcrowojn44/22/23 Ellyn Keller, ACCOUNT SERVICES ASSOCIATE.TRAINING AND DEVELOPMENT DIRECTOR [address] [facility] [address] ReferringNurse Practitioner02/26/23 Ellyn Keller, ACCOUNT SERVICES ASSOCIATE.TRAINING AND DEVELOPMENT DIRECTOR [address] [facility] [address] ReferringNurse Practitioner03/06/23 Fabiana Johnson, MANAGER STRATE[employer]IC MARKETING Social Worker03/08/23Team MemberRelationshipSpecialtyStart DateEnd Date Bee Vail MD PCP - GeneralInternal Medicine05/07/16 Irene Han, ACCOUNT SERVICES ASSOCIATE.TRAINING AND DEVELOPMENT DIRECTOR [address] [place] [address] Palliative Medicine ProviderHospice & Palliative Medicine06/28/21 Kylie Mosher, RN Specialty Care CoordinatorHospice & Palliative Medicine09/27/21 Ruperto Ledezma MD [address] [facility] [place] [address] WdbdndzccGcqxyuaaco31/22/23 Ellyn Keller, ACCOUNT SERVICES ASSOCIATE.TRAINING AND DEVELOPMENT DIRECTOR [address] [facility] [address] ReferringNurse Practitioner02/26/23 Ellyn Keller, ACCOUNT SERVICES ASSOCIATE.TRAINING AND DEVELOPMENT DIRECTOR [address] [facility] [address] ReferringNurse Practitioner03/06/23 Fabiana Johnson LSW Social Worker03/08/23Team MemberRelationshipSpecialtyStart DateEnd Bee Calhoun MD PCP - GeneralInternal Medicine05/07/16 Irene Han, ACCOUNT SERVICES ASSOCIATE.TRAINING AND DEVELOPMENT DIRECTOR [address] [place] [address] Palliative Medicine ProviderHospice & Palliative Medicine06/28/21 Kylie Mosher, RN Specialty Care CoordinatorHospice & Palliative Medicine09/27/21 Ruperto Ledezma MD [address] [facility] [place] [address] OgfzxjmebSjybvmeuzb82/22/23 Ellyn Keller, ACCOUNT SERVICES ASSOCIATE.TRAINING AND DEVELOPMENT DIRECTOR [address] [facility] [address] ReferringNurse Practitioner02/26/23 Ellyn Keller ACCOUNT SERVICES ASSOCIATE.TRAINING AND DEVELOPMENT DIRECTOR [address] [facility] [address] ReferringNurse Practitioner03/06/23 Fabiana Johnson, MANAGER STRATE[employer] MARKETING Social Worker03/08/23Team MemberRelationshipSpecialtyStart DateEnd Date Bee Vail MD PCP - GeneralInternal Medicine05/07/16 Irene Han, ACCOUNT SERVICES ASSOCIATE.TRAINING AND DEVELOPMENT DIRECTOR [address] [place] [address] Palliative Medicine ProviderHospice & Palliative Medicine06/28/21 Kylie Mosher RN Specialty Care CoordinatorHospice & Palliative Medicine09/27/21 Ruperto Ledezma MD [address] [place] [address] [place] [address] VxobolledNeopggbjgy44/22/23 Ellyn Keller, ACCOUNT SERVICES ASSOCIATE.TRAINING AND DEVELOPMENT DIRECTOR [address] [facility] [address] ReferringNurse Practitioner02/26/23 Ellyn Keller, ACCOUNT SERVICES ASSOCIATE.TRAINING AND DEVELOPMENT DIRECTOR [address] [facility] [address] ReferringNurse Practitioner03/06/23 Fabiana Johnson, [employer] Social Worker03/08/23Team MemberRelationshipSpecialtyStart DateEnd Date Bee Vail MD PCP - GeneralInternal Medicine05/07/16 Irene Han, ACCOUNT SERVICES ASSOCIATE.TRAINING AND DEVELOPMENT DIRECTOR [address] [place] [address] Palliative Medicine ProviderHospice & Palliative Medicine06/28/21 Kylie Mosher, RN Specialty Care CoordinatorHospice & Palliative Medicine09/27/21 Ruperto Ledezma MD [address] [facility] [place] [address] KihtjghvwMhyqwqaioi16/22/23 Ellyn Keller, ACCOUNT SERVICES ASSOCIATE.TRAINING AND DEVELOPMENT DIRECTOR [address] [facility] [address] ReferringNurse Practitioner02/26/23 Ellyn Keller, ACCOUNT SERVICES ASSOCIATE.TRAINING AND DEVELOPMENT DIRECTOR [address] [place] [address] ReferringNurse Practitioner03/06/23 Fabiana Johnson LSW Social Worker03/08/23Team MemberRelationshipSpecialtyStart DateEnd Date Bee Vail MD PCP - GeneralInternal Medicine05/07/16 Irene Han, ACCOUNT SERVICES ASSOCIATE.TRAINING AND DEVELOPMENT DIRECTOR [address] [place] [address] Palliative Medicine ProviderHospice & Palliative Medicine06/28/21 Kylie Mosher, RN Specialty Care CoordinatorHospice & Palliative Medicine09/27/21 Ruperto Ledezma MD [address] [place] [address] [place] [address] QvhmvnklySojckhgtdt51/22/23 Ellyn Keller, ACCOUNT SERVICES ASSOCIATE.TRAINING AND DEVELOPMENT DIRECTOR [address] [place] [address] ReferringNurse Practitioner02/26/23 Ellyn Keller, ACCOUNT SERVICES ASSOCIATE.TRAINING AND DEVELOPMENT DIRECTOR [address] [place] [address] ReferringNurse Practitioner03/06/23 Fabiana Johnson LSW Social Worker03/08/23Team MemberRelationshipSpecialtyStart DateEnd Date Bee Vail MD PCP - GeneralInternal Medicine05/07/16 Irene Han, ACCOUNT SERVICES ASSOCIATE.TRAINING AND DEVELOPMENT DIRECTOR [address] [place] [address] Palliative Medicine ProviderHospice & Palliative Medicine06/28/21 Kylie Mosher RN Specialty Care CoordinatorHospice & Palliative Medicine09/27/21 Ruperto Ledezma MD [address] [place] [address] [place] [address] XlkijpajvXoqzciedmq92/22/23 Ellyn Keller, ACCOUNT SERVICES ASSOCIATE.TRAINING AND DEVELOPMENT DIRECTOR [address] [facility] [address] ReferringNurse Practitioner02/26/23 Ellyn Keller, ACCOUNT SERVICES ASSOCIATE.TRAINING AND DEVELOPMENT DIRECTOR [address] [place] [address] ReferringNurse Practitioner03/06/23 Fabiana Johnson LSW Social Worker03/08/23Team MemberRelationshipSpecialtyStart DateEnd Date Bee Vail MD PCP - GeneralInternal Medicine05/07/16 Irene Han, ACCOUNT SERVICES ASSOCIATE.TRAINING AND DEVELOPMENT DIRECTOR [address] [place] [address] Palliative Medicine ProviderHospice & Palliative Medicine06/28/21 Kylie Mosher, RN Specialty Care CoordinatorHospice & Palliative Medicine09/27/21 Ruperto Ledezma MD [address] [place] [address] [place] [address] FzcbjqrhwOheasllwtf65/22/23 Ellyn Keller, ACCOUNT SERVICES ASSOCIATE.TRAINING AND DEVELOPMENT DIRECTOR [address] [facility] [address] ReferringNurse Practitioner02/26/23 Ellyn Keller, ACCOUNT SERVICES ASSOCIATE.TRAINING AND DEVELOPMENT DIRECTOR [address] [place] [address] ReferringNurse Practitioner03/06/23 Fabiana Johnson, MANAGER STRATEGIC MARKETING Social Worker03/08/23Team MemberRelationshipSpecialtyStart DateEnd Bee Vail MD PCP - GeneralInternal Medicine05/07/16 Irene Han, ACCOUNT SERVICES ASSOCIATE.TRAINING AND DEVELOPMENT DIRECTOR [address] [place] [address], [place] [address] Palliative Medicine ProviderHospice & Palliative Medicine06/28/21 Kylie Mosher, RN Specialty Care CoordinatorHospice & Palliative Medicine09/27/21 Ruperto Ledezma MD [address] [place] [address] [place] [address] MjwiswzuvHhhodwcfxg18/22/23 Ellyn Keller, ACCOUNT SERVICES ASSOCIATE.TRAINING AND DEVELOPMENT DIRECTOR [address] [facility] [address] ReferringNurse Practitioner02/26/23 Ellyn Keller ACCOUNT SERVICES ASSOCIATE.TRAINING AND DEVELOPMENT DIRECTOR [address] [facility] [address] ReferringNurse Practitioner03/06/23 Fabiana Johnson LSW Social Worker03/08/23Team MemberRelationshipSpecialtyStart DateEnd Date Bee Vail MD PCP - GeneralInternal Medicine05/07/16 Irene Han, ACCOUNT SERVICES ASSOCIATE.TRAINING AND DEVELOPMENT DIRECTOR [address] [place] [address] Palliative Medicine ProviderHospice & Palliative Medicine06/28/21 Kylie Mosher RN Specialty Care CoordinatorHospice & Palliative Medicine09/27/21 Ruperto Ledezma MD [address] [place] [address] [place] [address] LjkfjuqsvAarewnmxjx81/22/23 Ellyn Keller, ACCOUNT SERVICES ASSOCIATE.TRAINING AND DEVELOPMENT DIRECTOR [address] [facility] [address] ReferringNurse Practitioner02/26/23 Ellyn Keller, ACCOUNT SERVICES ASSOCIATE.TRAINING AND DEVELOPMENT DIRECTOR [address] [facility] [address] ReferringNurse Practitioner03/06/23 Fabiana Johnson LSW Social Worker03/08/23Team MemberRelationshipSpecialtyStart DateEnd Date Bee Vail MD PCP - GeneralInternal Medicine05/07/16 Irene Han, ACCOUNT SERVICES ASSOCIATE.TRAINING AND DEVELOPMENT DIRECTOR [address] [place] [address] Palliative Medicine ProviderHospice & Palliative Medicine06/28/21 Kylie Mosher, RN Specialty Care CoordinatorHospice & Palliative Medicine09/27/21 Ruperto Ledezma MD [address] [facility] [place] [address] KapgybabmRooydwcyyl50/22/23 Ellyn Keller, ACCOUNT SERVICES ASSOCIATE.TRAINING AND DEVELOPMENT DIRECTOR [address] [facility] [address] ReferringNurse Practitioner02/26/23 Ellyn Keller, ACCOUNT SERVICES ASSOCIATE.TRAINING AND DEVELOPMENT DIRECTOR [address] [facility] [address] ReferringNurse Practitioner03/06/23 Fabiana Johnson, TATO Social Worker03/08/23Team MemberRelationshipSpecialtyStart DateEnd Date Bee Vail MD PCP - GeneralInternal Medicine05/07/16 Irene Han, ACCOUNT SERVICES ASSOCIATE.TRAINING AND DEVELOPMENT DIRECTOR [address] [place] [address] Palliative Medicine ProviderHospice & Palliative Medicine06/28/21 Kylie Msoher, RN Specialty Care CoordinatorHospice & Palliative Medicine09/27/21 Ruperot Ledezma MD [address] [facility] [place] [address] JxhsxbrxhVjjmgjphvu17/22/23 Ellyn Keller, ACCOUNT SERVICES ASSOCIATE.TRAINING AND DEVELOPMENT DIRECTOR [address] [facility] [address] ReferringNurse Practitioner02/26/23 Ellyn Keller, ACCOUNT SERVICES ASSOCIATE.TRAINING AND DEVELOPMENT DIRECTOR [address] [facility] [address] ReferringNurse Practitioner03/06/23 Fabiana Johnson, MANAGER STRATEGIC MARKETING Social Worker03/08/23Team MemberRelationshipSpecialtyStart DateEnd Date Bee Vail MD PCP - GeneralInternal Medicine05/07/16 Irene Han, ACCOUNT SERVICES ASSOCIATE.TRAINING AND DEVELOPMENT DIRECTOR [address] [place] [address] Palliative Medicine ProviderHospice & Palliative Medicine06/28/21 Kylie Mosher RN Specialty Care CoordinatorHospice & Palliative Medicine09/27/21 Ruperto Ledezma MD [address] [place] [address] [place] [address] SbxlceabgMfyezbmyzk84/22/23 Ellyn Keller, ACCOUNT SERVICES ASSOCIATE.TRAINING AND DEVELOPMENT DIRECTOR [address] [facility] [address] ReferringNurse Practitioner02/26/23 Ellyn Keller, ACCOUNT SERVICES ASSOCIATE.TRAINING AND DEVELOPMENT DIRECTOR [address] [place] [address] ReferringNurse Practitioner03/06/23 Fabiana Johnson, TATO Social Worker03/08/23Team MemberRelationshipSpecialtyStart End Date Bee Vail MD PCP - GeneralInternal Medicine05/07/16 Irene Han, ACCOUNT SERVICES ASSOCIATE.TRAINING AND DEVELOPMENT DIRECTOR [address] [place] [address] Palliative Medicine ProviderHospice & Palliative Medicine06/28/21 Kylie Mosher, RN Specialty Care CoordinatorHospice & Palliative Medicine09/27/21 Ruperto Ledezma MD [address] [facility] [place] [address] QklflgblzFonfhuhvdg80/22/23 Ellyn Keller, ACCOUNT SERVICES ASSOCIATE.TRAINING AND DEVELOPMENT DIRECTOR [address] [facility] [address] ReferringNurse Practitioner02/26/23 Ellyn Keller, ACCOUNT SERVICES ASSOCIATE.TRAINING AND DEVELOPMENT DIRECTOR [address] [facility] [address] ReferringNurse Practitioner03/06/23 Fabiana Johnson LSW Social Worker03/08/23Team MemberRelationshipSpecialtyStart DateEnd Date Bee Vail MD PCP - GeneralInternal Medicine05/07/16 Irene Han, ACCOUNT SERVICES ASSOCIATE.TRAINING AND DEVELOPMENT DIRECTOR [address] [place] [address] Palliative Medicine ProviderHospice & Palliative Medicine06/28/21 Kylie Mosher, RN Specialty Care CoordinatorHospice & Palliative Medicine09/27/21 Ruperto Ledezma MD [address] [place] [address] [place] [address] AqhdvkpjgPthelnqvpl45/22/23 Ellyn Keller, ACCOUNT SERVICES ASSOCIATE.TRAINING AND DEVELOPMENT DIRECTOR [address] [facility] [address] ReferringNurse Practitioner02/26/23 Ellyn Keller, ACCOUNT SERVICES ASSOCIATE.TRAINING AND DEVELOPMENT DIRECTOR [address] [facility] [address] ReferringNurse Practitioner03/06/23 Fabiana Johnson, MANAGER STRATEGIC MARKETING Social Worker03/08/23Team MemberRelationshipSpecialtyStart DateEnd Date Bee Vail MD PCP - GeneralInternal Medicine05/07/16 Irene Han, ACCOUNT SERVICES ASSOCIATE.TRAINING AND DEVELOPMENT DIRECTOR [address] [place] [address] Palliative Medicine ProviderHospice & Palliative Medicine06/28/21 Kylie Mosher RN Specialty Care CoordinatorHospice & Palliative Medicine09/27/21 Ruperto Ledezma MD [address] [place] [address] [place] [address] YbppseirfJlxtqdmgwc26/22/23 Ellyn Keller, ACCOUNT SERVICES ASSOCIATE.TRAINING AND DEVELOPMENT DIRECTOR [address] [facility] [address] ReferringNurse Practitioner02/26/23 Ellyn Keller, ACCOUNT SERVICES ASSOCIATE.TRAINING AND DEVELOPMENT DIRECTOR [address] [place] [address] ReferringNurse Practitioner03/06/23 Fabiana Johnson, TATO Social Worker03/08/23Team MemberRelationshipSpecialtyStart DateEnd Date Bee Vail MD PCP - GeneralInternal Medicine05/07/16 Irene Han, ACCOUNT SERVICES ASSOCIATE.TRAINING AND DEVELOPMENT DIRECTOR [address] [place] [address], [place] [address] Palliative Medicine ProviderHospice & Palliative Medicine06/28/21 Kylie Mosher, RN Specialty Care CoordinatorHospice & Palliative Medicine09/27/21 Ruperto Ledezma MD [address] [place] [address] [place] [address] TzsggmjnuHiuoyjdjgl35/22/23 Ellyn Keller, ACCOUNT SERVICES ASSOCIATE.TRAINING AND DEVELOPMENT DIRECTOR [address] [facility] [address] ReferringNurse Practitioner02/26/23 Ellyn Keller, ACCOUNT SERVICES ASSOCIATE.TRAINING AND DEVELOPMENT DIRECTOR [address] [facility] [address] ReferringNurse Practitioner03/06/23 Fabiana Johnson LSW Social Worker03/08/23Team MemberRelationshipSpecialtyStart DateEnd Bee Vail MD PCP - GeneralInternal Medicine05/07/16 Irene Han, ACCOUNT SERVICES ASSOCIATE.TRAINING AND DEVELOPMENT DIRECTOR [address] [place] [address] Palliative Medicine ProviderHospice & Palliative Medicine06/28/21 Kylie Mosher, RN Specialty Care CoordinatorHospice & Palliative Medicine09/27/21 Ruperto Ledezma MD [address] [place] [address] [place] [address] UrwvfimooWiklumqksn84/22/23 Ellyn Keller, ACCOUNT SERVICES ASSOCIATE.TRAINING AND DEVELOPMENT DIRECTOR [address] [facility] [address] ReferringNurse Practitioner02/26/23 Ellyn Keller, ACCOUNT SERVICES ASSOCIATE.TRAINING AND DEVELOPMENT DIRECTOR [address] [facility] [address] ReferringNurse Practitioner03/06/23 Fabiana Johnson, MANAGER STRATEGIC MARKETING Social Worker03/08/23Team MemberRelationshipSpecialtyStart DateEnd Date Bee Vail MD PCP - GeneralInternal Medicine05/07/16 Irene Han, ACCOUNT SERVICES ASSOCIATE.TRAINING AND DEVELOPMENT DIRECTOR [address] [place] [address] Palliative Medicine ProviderHospice & Palliative Medicine06/28/21 Kylie Mosher RN Specialty Care CoordinatorHospice & Palliative Medicine09/27/21 Ruperto Ledezma MD [address] [place] [address] [place] [address] IjiskbtouDkwndrcqru81/22/23 Ellyn Keller, ACCOUNT SERVICES ASSOCIATE.TRAINING AND DEVELOPMENT DIRECTOR [address] [facility] [address] ReferringNurse Practitioner02/26/23 Ellyn Keller, ACCOUNT SERVICES ASSOCIATE.TRAINING AND DEVELOPMENT DIRECTOR [address] [facility] [address] ReferringNurse Practitioner03/06/23 Fabiana Johnson, TATO Social Worker03/08/23Team MemberRelationshipSpecialtyStart DateEnd Date Bee Vail MD PCP - GeneralInternal Medicine05/07/16 Irene Han, ACCOUNT SERVICES ASSOCIATE.TRAINING AND DEVELOPMENT DIRECTOR [address] [place] [address] Palliative Medicine ProviderHospice & Palliative Medicine06/28/21 Kylie Mosher, RN Specialty Care CoordinatorHospice & Palliative Medicine09/27/21 Ruperto Ledezma MD [address] [facility] [place] [address] HufwphjsiAeiatycofb26/22/23 Ellyn Keller, ACCOUNT SERVICES ASSOCIATE.TRAINING AND DEVELOPMENT DIRECTOR [address] [place] [address] ReferringNurse Practitioner02/26/23 Ellyn Keller, ACCOUNT SERVICES ASSOCIATE.TRAINING AND DEVELOPMENT DIRECTOR [address] [place] [address] ReferringNurse Practitioner03/06/23 Fabiana Johnson LSW Social Worker03/08/23Team MemberRelationshipSpecialtyStart DateEnd Bee Vail MD PCP - GeneralInternal Medicine05/07/16 Irene Han, ACCOUNT SERVICES ASSOCIATE.TRAINING AND DEVELOPMENT DIRECTOR [address] [place] [address] Palliative Medicine ProviderHospice & Palliative Medicine06/28/21 Kylie Mosher, RN Specialty Care CoordinatorHospice & Palliative Medicine09/27/21 Ruperto Ledezma MD [address] [facility] [place] [address] KyyzhsafzVjjuxcfzjn22/22/23 Ellyn Keller, ACCOUNT SERVICES ASSOCIATE.TRAINING AND DEVELOPMENT DIRECTOR [address] [place] [address] ReferringNurse Practitioner02/26/23 Ellyn Keller, ACCOUNT SERVICES ASSOCIATE.TRAINING AND DEVELOPMENT DIRECTOR [address] [place] [address] ReferringNurse Practitioner03/06/23 Fabiana Johnson, MANAGER STRATEGIC MARKETING Social Worker03/08/23Team MemberRelationshipSpecialtyStart DateEnd Date Bee Vail MD PCP - GeneralInternal Medicine05/07/16 Irene Han, ACCOUNT SERVICES ASSOCIATE.TRAINING AND DEVELOPMENT DIRECTOR [address] [place] [address] [id number] Palliative Medicine ProviderHospice & Palliative Medicine06/28/21 Kylie Mosher RN Specialty Care CoordinatorHospice & Palliative Medicine09/27/21 Ruperto Ledezma MD [address] [place] [address] [place] [address] DdcyqutodPztjfmqxie02/22/23 Ellyn Keller, ACCOUNT SERVICES ASSOCIATE.TRAINING AND DEVELOPMENT DIRECTOR [address] [place] [address] ReferringNurse Practitioner02/26/23 Ellyn Keller, ACCOUNT SERVICES ASSOCIATE.TRAINING AND DEVELOPMENT DIRECTOR [address] [place] [address] ReferringNurse Practitioner03/06/23 Fabiana Johnson, MANAGER STRATEGIC MARKETING Social Worker03/08/23Team MemberRelationshipSpecialtyStart DateEnd Date Bee Vail MD PCP - GeneralInternal Medicine05/07/16 Irnee Han, ACCOUNT SERVICES ASSOCIATE.TRAINING AND DEVELOPMENT DIRECTOR [address] [place], [place] [id number] Palliative Medicine ProviderHospice & Palliative Medicine06/28/21 Kylie Mosher, RN Specialty Care CoordinatorHospice & Palliative Medicine09/27/21 Ruperto Ledezma MD [address] [place] [address] [place] [address] PemeedgqaMdevyxmyjc67/22/23 Ellyn Keller, ACCOUNT SERVICES ASSOCIATE.TRAINING AND DEVELOPMENT DIRECTOR [address] [place] [address] ReferringNurse Practitioner02/26/23 Ellyn Keller, ACCOUNT SERVICES ASSOCIATE.TRAINING AND DEVELOPMENT DIRECTOR [address] [place] [address] ReferringNurse Practitioner03/06/23 Fabiana Johnson LSW Social Worker03/08/23Team MemberRelationshipSpecialtyStart DateEnd Date Bee Vail MD PCP - GeneralInternal Medicine05/07/16 Irene Han, ACCOUNT SERVICES ASSOCIATE.TRAINING AND DEVELOPMENT DIRECTOR [address] [place] [address] Palliative Medicine ProviderHospice & Palliative Medicine06/28/21 Kylie Mosher, RN Specialty Care CoordinatorHospice & Palliative Medicine09/27/21 Ruperto Ledezma MD [address] [place] [address] [place] [address] EwjtihfcgJjnpyenbcw50/22/23 Ellyn Keller, ACCOUNT SERVICES ASSOCIATE.TRAINING AND DEVELOPMENT DIRECTOR [address] [facility] [address] ReferringNurse Practitioner02/26/23 Ellyn Keller, ACCOUNT SERVICES ASSOCIATE.TRAINING AND DEVELOPMENT DIRECTOR [address] [place] [address] ReferringNurse Practitioner03/06/23 Fabiana Johnson, MANAGER STRATEGIC MARKETING Social Worker03/08/23Team MemberRelationshipSpecialtyStart DateEnd Date Bee Vail MD PCP - GeneralInternal Medicine05/07/16 Irene Han, ACCOUNT SERVICES ASSOCIATE.TRAINING AND DEVELOPMENT DIRECTOR [address] [place] [address] [id number] Palliative Medicine ProviderHospice & Palliative Medicine06/28/21 Kylie Mosher RN Specialty Care CoordinatorHospice & Palliative Medicine09/27/21 Ruperto Ledezma MD [address] [place] [address] [place] [address] WzurgkhjbRmbmnrxjjy02/22/23 Ellyn Keller, ACCOUNT SERVICES ASSOCIATE.TRAINING AND DEVELOPMENT DIRECTOR [address] [place] [address] ReferringNurse Practitioner02/26/23 Ellyn Keller, ACCOUNT SERVICES ASSOCIATE.TRAINING AND DEVELOPMENT DIRECTOR [address] [place] [address] ReferringNurse Practitioner03/06/23 Fabiana Johnson, MANAGER STRATEGIC MARKETING Social Worker03/08/23Team MemberRelationshipSpecialtyStart DateEnd Date eBe Vail MD PCP - GeneralInternal Medicine05/07/16 Irene Han, ACCOUNT SERVICES ASSOCIATE.TRAINING AND DEVELOPMENT DIRECTOR [address] [place] [address] [id number] Palliative Medicine ProviderHospice & Palliative Medicine06/28/21 Kylie Mosher, RN Specialty Care CoordinatorHospice & Palliative Medicine09/27/21 Ruperto Ledezma MD [address] [place] [address] [place] [address] RbhptqknpEeyoyxxnes31/22/23 Ellyn Keller, ACCOUNT SERVICES ASSOCIATE.TRAINING AND DEVELOPMENT DIRECTOR [address] [facility] [place] [address] ReferringNurse Practitioner02/26/23 Ellyn Keller, ACCOUNT SERVICES ASSOCIATE.TRAINING AND DEVELOPMENT DIRECTOR [address] [facility] [place] [address] ReferringNurse Practitioner03/06/23 Fabiana Johnson LSW Social Worker03/08/23Team MemberRelationshipSpecial[place] [address] [place] [address] PCP - GeneralInternal Medicine05/07/16 [place] [address] [place] [address] ConsultingHematology/Iphdqjpq20/10/ [place] [address] [place] [address] Hematology/Oncology03/30/2211 Irene Han, ACCOUNT SERVICES ASSOCIATE.TRAINING AND DEVELOPMENT DIRECTOR [address] [place] [address] Palliative Medicine ProviderHospice & Palliative Medicine06/28/21 Kylie Mosher, RN Specialty Care CoordinatorHospice & Palliative Medicine09/27/21Team Member RelationshipSpecialty[place] [address] [place] [address] PCP - GeneralInternal Medicine05/07/16 [place] [address] [place] [address] ConsultingHematology/Bkkwoqwx57/10/ [place] [address] [place] [address] Hematology/Oncology03/30/2211 Irene Han, ACCOUNT SERVICES ASSOCIATE.TRAINING AND DEVELOPMENT DIRECTOR [address] [place], [place] [id number] Palliative Medicine ProviderHospice & Palliative Medicine06/28/21 Kylie Mosher RN Specialty Care CoordinatorHospice & Palliative Medicine09/27/21Team Member RelationshipSpecialtyStkerrick DateEnd Date Bee Vail MD PCP - GeneralInternal Medicine05/07/16 Irene Han, ACCOUNT SERVICES ASSOCIATE.TRAINING AND DEVELOPMENT DIRECTOR [address] [place] [address] Palliative Medicine ProviderHospice & Palliative Medicine06/28/21 Kylie Mosher, RN Specialty Care CoordinatorHospice & Palliative Medicine09/27/21 Ruperto Ledezma MD [address] [place] [address] [place] [address] EpqinhkatOvgvxtnakj59/22/23 Munday, Ellyn, ACCOUNT SERVICES ASSOCIATE.TRAINING AND DEVELOPMENT DIRECTOR [address] [place] [address] ReferringNurse Practitioner02/26/23 Ellyn Keller, ACCOUNT SERVICES ASSOCIATE.TRAINING AND DEVELOPMENT DIRECTOR [address] [place] [address] ReferringNurse Practitioner03/06/23 Fabiana Johnson, MANAGER STRATE[employer]IC MARKETING Social Worker03/08/23Team MemberRelationshipSpecialtyStart DateEnd Date Bee Vail MD PCP - GeneralInternal Medicine05/07/16 Irene Han, ACCOUNT SERVICES ASSOCIATE.TRAINING AND DEVELOPMENT DIRECTOR [address] [place] [address] Palliative Medicine ProviderHospice & Palliative Medicine06/28/21 Kylie Mosher, RN Specialty Care CoordinatorHospice & Palliative Medicine09/27/21 Rueprto Ledezma MD [address] [place] [address] [place] [address] JxuzernoeVcneuhyscu94/22/23 Ellyn Keller, ACCOUNT SERVICES ASSOCIATE.TRAINING AND DEVELOPMENT DIRECTOR [address] [place] [address] ReferringNurse Practitioner02/26/23 Ellyn Keller, ACCOUNT SERVICES ASSOCIATE.TRAINING AND DEVELOPMENT DIRECTOR [address] [place] [address] ReferringNurse Practitioner03/06/23 Fabiana Johnson, TATO Social Worker03/08/23Team MemberRelationshipSpecialty[place] [address] [place] [address] PCP - GeneralInternal Medicine05/07/16 [place] [address] [place] [address] ConsultingHematology/Amehaqhb22/10/ [place] [address] [place] [address] Specialty Care CoordinatorHematology/[place] [address] [place] [address] Hematology/Oncology03/30/2211 Kristina Pete RN Specialty Care CoordinatorHospice & Palliative Medicine Irene Han, ACCOUNT SERVICES ASSOCIATE.TRAINING AND DEVELOPMENT DIRECTOR [address] [place] [address] Palliative Medicine ProviderHospice & Palliative Medicine06/28/21 Kylie Mosher, MAE Specialty Care CoordinatorHospice & Palliative Medicine09/27/21Team Member RelationshipSpecialtyStart DateEnd Date Bee Vail MD PCP - GeneralInternal Medicine05/07/16 Irene Han, ACCOUNT SERVICES ASSOCIATE.TRAINING AND DEVELOPMENT DIRECTOR [address] [place] [id number] Palliative Medicine ProviderHospice & Palliative Medicine06/28/21 Kylie Mosher, RN Specialty Care CoordinatorHospice & Palliative Medicine09/27/21 Ruperto Ledezma MD [address] [place] [address] [place] [address] ZdfrfelsnBoliwjfiim67/22/23 Ellyn Keller, ACCOUNT SERVICES ASSOCIATE.TRAINING AND DEVELOPMENT DIRECTOR [address] [facility] [place] [address] ReferringNurse Practitioner02/26/23 Ellyn Keller, ACCOUNT SERVICES ASSOCIATE.TRAINING AND DEVELOPMENT DIRECTOR [address] [facility] [place] [address] ReferringNurse Practitioner03/06/23 Fabiana Johnson LSW Social Worker03/08/23Team MemberRelationshipSpecialtyStart [place] [address] [place] [address] PCP - GeneralInternal Medicine05/07/16 [place] [address] [place] [address] ConsultingHematology/Igydkjcx71/10/ [place] [address] [place] [address] Specialty Care CoordinatorHematology/[place] [address] [place] [address] Hematology/Oncology03/30/2211 Kristina Pete RN Specialty Care CoordinatorHospice & Palliative Medicine Irene Han, ACCOUNT SERVICES ASSOCIATE.TRAINING AND DEVELOPMENT DIRECTOR [address] [place] [address] [phone] Palliative Medicine ProviderHospice & Palliative Medicine06/28/21 Kylie Mosher RN Specialty Care CoordinatorHospice & Palliative Medicine09/27/21Team Member RelationshipSpecialtyStart DateEnd Date Bee Vail MD PCP - GeneralInternal Medicine05/07/16 Irene Han, ACCOUNT SERVICES ASSOCIATE.TRAINING AND DEVELOPMENT DIRECTOR [address] [place] [address] Palliative Medicine ProviderHospice & Palliative Medicine06/28/21 Kylie Mosher RN Specialty Care CoordinatorHospice & Palliative Medicine09/27/21 Ruperto Ledezma MD [address] [place] [address] [place] [address] HhrhtvfbuPyrlbakwqq87/22/23 Ellyn Keller, ACCOUNT SERVICES ASSOCIATE.TRAINING AND DEVELOPMENT DIRECTOR [address] [facility] [place] [address] ReferringNurse Practitioner02/26/23 Ellyn Keller, ACCOUNT SERVICES ASSOCIATE.TRAINING AND DEVELOPMENT DIRECTOR [address] [facility] [place] [address] ReferringNurse Practitioner03/06/23 Fabiana Johnson LSW Social Worker03/08/23Team MemberRelationshipSpecialty[place] [address] [place] [address] PCP - GeneralInternal Medicine05/07/16 [place] [address] [place] [id number] ConsultingHematology/Yketkdjh13/10/ [place] [address] [place] [address] Specialty Care CoordinatorHematology/[place] [address] [place] [address] Hematology/Oncology03/30/2211 Kristina Pete, RN Specialty Care CoordinatorHospice & Palliative Medicine Irene Han, ACCOUNT SERVICES ASSOCIATE.[facility] [address] [place] [address] Palliative Medicine ProviderHospice & Palliative Medicine06/28/21Team Member RelationshipSpecialty[place] [address] [place] [address] PCP - GeneralInternal Medicine05/07/16 [place] [address] [place] [address] ConsultingHematology/Xjoobkzp36/10/ [place] [address] [place] [address] Specialty Care CoordinatorHematology/OncologyTeam Member RelationshipSpecialtyStart DateEnd Date Bee Vail MD [address] [place] [address] PCP - GeneralInternal Medicine06/26/22 Bee Vail MD [address] [place] [address] PCP - [employer]10/19/21 Dr. Ledezma Referring PhysicianOncology08/08/23 Dr. Elliott Referring PhysicianCardiology08/08/23 Dr. Clemons Referring PhysicianRheumatology08/08/23 Dr. Becerril Referring PhysicianPulmonary Disease08/08/23 Dr. Franco Referring PhysicianOtolaryngology08/08/23 Emely Bonilla Referring PhysicianPalliative Medicine08/08/23Team MemberRelationshipSpecialty Charlotte DateEnd Date Bee Vail MD PCP - GeneralInternal Medicine05/07/16 Irene Han, ACCOUNT SERVICES ASSOCIATE.TRAINING AND DEVELOPMENT DIRECTOR [address] [place] [address] Palliative Medicine ProviderHospice & Palliative Medicine06/28/21 Kylie Mosher, RN Specialty Care CoordinatorHospice & Palliative Medicine09/27/21 Ruperto Ledezma MD [address] [place] [address] [place] [address] PesidwcojMocamfnqgm27/22/23 Ellyn Keller, ACCOUNT SERVICES ASSOCIATE.TRAINING AND DEVELOPMENT DIRECTOR [address] [place] [address] ReferringNurse Practitioner02/26/23 Ellyn Keller, ACCOUNT SERVICES ASSOCIATE.TRAINING AND DEVELOPMENT DIRECTOR [address] [place] [address] ReferringNurse Practitioner03/06/23 Fabiana Johnson LSW Social Worker03/08/23Team MemberRelationshipSpecialtyStkerrick DateEnd Date Bee Vail MD PCP - GeneralInternal Medicine05/07/16 Irene Han, ACCOUNT SERVICES ASSOCIATE.TRAINING AND DEVELOPMENT DIRECTOR [address] [place] [address] Palliative Medicine ProviderHospice & Palliative Medicine06/28/21 Kylie Mosher, RN Specialty Care CoordinatorHospice & Palliative Medicine09/27/21 Ruperto Ledezma MD [address] [place] [address] [place] [address] WxjxrzzkfUkmqszdwhy15/22/23 Ellyn Keller, ACCOUNT SERVICES ASSOCIATE.TRAINING AND DEVELOPMENT DIRECTOR [address] [place] [address] ReferringNurse Practitioner02/26/23 Ellyn Keller, ACCOUNT SERVICES ASSOCIATE.TRAINING AND DEVELOPMENT DIRECTOR [address] [place] [address] ReferringNurse Practitioner03/06/23 Fabiana Johnson LSW Social Worker03/08/23Team MemberRelationshipSpecialtyStart DateEnd Date Bee Vail MD [address] [facility] [place] [address] PCP - GeneralInternal Medicine06/26/22 Bee Vail MD [address] [facility] [place] [address] PCP - Aetna10/19/21 Dr. Ledezma Referring PhysicianOncology08/08/23 Dr. Elliott Referring PhysicianCardiology08/08/23 Dr. Clemons Referring PhysicianRheumatology08/08/23 Dr. Becerril Referring PhysicianPulmonary Disease08/08/23 Dr. Franco Referring PhysicianOtolaryngology08/08/23 Emely Bonilla Referring PhysicianPalliative Medicine08/08/23Team MemberRelationshipSpecialty Start DateEnd Date Bee Vail MD PCP - GeneralInternal Medicine05/07/16 Irene Han, ACCOUNT SERVICES ASSOCIATE.TRAINING AND DEVELOPMENT DIRECTOR [address] [place] [address], [place] [address] Palliative Medicine ProviderHospice & Palliative Medicine06/28/21 Kylie Mosher, RN Specialty Care CoordinatorHospice & Palliative Medicine09/27/21 Ruperto Ledezma MD [address] [place] [address] [place] [address] CspukvhdzBreegjehhr33/22/23 Ellyn Keller, ACCOUNT SERVICES ASSOCIATE.TRAINING AND DEVELOPMENT DIRECTOR [address] [facility] [address] ReferringNurse Practitioner02/26/23 Ellyn Keller, ACCOUNT SERVICES ASSOCIATE.TRAINING AND DEVELOPMENT DIRECTOR [address] [place] [address] ReferringNurse Practitioner03/06/23 Fabiana Johnson LSW Social Worker03/08/23Team MemberRelationshipSpecialtyStart DateEnd Date Bee Vail MD [address] [facility] [place] [address] PCP - GeneralInternal Medicine06/26/22 Bee Vail MD [address] [facility] [place] [address] PCP - Aetna10/19/21 Dr. Ledezma Referring PhysicianOncology08/08/23 Dr. Elliott Referring PhysicianCardiology08/08/23 Dr. Clemons Referring PhysicianRheumatology08/08/23 Dr. Becerril Referring PhysicianPulmonary Disease08/08/23 Dr. Franco Referring PhysicianOtolaryngology08/08/23 Emely Bonilla Referring PhysicianPalliative Medicine08/08/23Team MemberRelationshipSpecialty Start DateEnd Date Bee Vail MD PCP - GeneralInternal Medicine05/07/16 Irene Han, ACCOUNT SERVICES ASSOCIATE.TRAINING AND DEVELOPMENT DIRECTOR [address] [place] [address] Palliative Medicine ProviderHospice & Palliative Medicine06/28/21 Kylie Mosher, RN Specialty Care CoordinatorHospice & Palliative Medicine09/27/21 Ruperto Ledezma MD [address] [place] [address] [place] [address] GrlobzeqbLxhlxuldgb51/22/23 Ellyn Keller, ACCOUNT SERVICES ASSOCIATE.TRAINING AND DEVELOPMENT DIRECTOR [address] [facility] [address] ReferringNurse Practitioner02/26/23 Ellyn Keller, ACCOUNT SERVICES ASSOCIATE.TRAINING AND DEVELOPMENT DIRECTOR [address] [place] [address] ReferringNurse Practitioner03/06/23 Fabiana Johnson LSW Social Worker03/08/23Team MemberRelationshipSpecialtyStart Date[facility] Bee Calhoun MD PCP - GeneralInternal Medicine05/07/16 Irene Han, ACCOUNT SERVICES ASSOCIATE.TRAINING AND DEVELOPMENT DIRECTOR [address] [place] [address] Palliative Medicine ProviderHospice & Palliative Medicine06/28/21 Kylie Mosher, RN Specialty Care CoordinatorHospice & Palliative Medicine09/27/21 Ruperto Ledezma MD [address] [facility] [place] [address] KarorukndRekssrueeq49/22/23 Ellyn Keller, ACCOUNT SERVICES ASSOCIATE.TRAINING AND DEVELOPMENT DIRECTOR [address] [facility] [address] ReferringNurse Practitioner02/26/23 Ellyn Keller, ACCOUNT SERVICES ASSOCIATE.TRAINING AND DEVELOPMENT DIRECTOR [address] [place] [address] ReferringNurse Practitioner03/06/23 Fabiana Johnson LSW Social Worker03/08/23Team MemberRelationshipSpecialtyStart DateEnd Date Bee Vail MD [address] [facility] [place] [address] PCP - GeneralInternal Medicine06/26/22 Bee Vail MD [address] [facility] [place] [address] PCP - Aetna10/19/21 Dr. Ledezma Referring PhysicianOncology08/08/23 Dr. Elliott Referring PhysicianCardiology08/08/23 Dr. Clemons Referring PhysicianRheumatology08/08/23 Dr. Becerril Referring PhysicianPulmonary Disease08/08/23 Dr. Franco Referring PhysicianOtolaryngology08/08/23 Emely Bonilla Referring PhysicianPalliative Medicine08/08/23Team MemberRelationshipSpecialty Start DateEnd Date Bee Vail MD [address] [facility] [place] [address] PCP - GeneralInternal Medicine06/26/22 Bee Vail MD [address] [facility] [place] [address] PCP - Aetna10/19/21 Dr. Ledezma Referring PhysicianOncology08/08/23 Dr. Elliott Referring PhysicianCardiology08/08/23 Dr. Clemons Referring PhysicianRheumatology08/08/23 Dr. Becerril Referring PhysicianPulmonary Disease08/08/23 Dr. Franco Referring PhysicianOtolaryngology08/08/23 Emely Bonilla Referring PhysicianPalliative Medicine08/08/23Team MemberRelationshipSpecialty Start DateEnd Date Bee Vail MD [address] [facility] [place] [address] PCP - GeneralInternal Medicine06/26/22 Bee Vail MD [address] [facility] [place] [address] PCP - Aetna10/19/21 Dr. Ledezma Referring PhysicianOncology08/08/23 Dr. Elliott Referring PhysicianCardiology08/08/23 Dr. Clemons Referring PhysicianRheumatology08/08/23 Dr. Becreril Referring PhysicianPulmonary Disease08/08/23 Dr. Franco Referring PhysicianOtolaryngology08/08/23 Emely Bonilla Referring PhysicianPalliative Medicine08/08/23Team MemberRelationshipSpecialty Start DateEnd Date Bee Vail MD PCP - GeneralInternal Medicine05/07/16 Irene Han, ACCOUNT SERVICES ASSOCIATE.TRAINING AND DEVELOPMENT DIRECTOR [address] [place] [address] Palliative Medicine ProviderHospice & Palliative Medicine06/28/21 Kylie Mosher, RN Specialty Care CoordinatorHospice & Palliative Medicine09/27/21 Ruperto Ledezma MD [address] [place] [address] [address] [place] [address] RckqcvuvePfdhmsingk41/22/23 Ellyn Keller, ACCOUNT SERVICES ASSOCIATE.TRAINING AND DEVELOPMENT DIRECTOR [address] [facility] [address] ReferringNurse Practitioner02/26/23 Ellyn Keller, ACCOUNT SERVICES ASSOCIATE.TRAINING AND DEVELOPMENT DIRECTOR [address] [place] [address] ReferringNurse Practitioner03/06/23 Fabiana Johnson LSW Social Worker03/08/23Team MemberRelationshipSpecialtyStart DateEnd Date Bee Vail MD [address] [facility] [place] [address] PCP - GeneralInternal Medicine06/26/22 Bee Vail MD [address] [facility] [place] [address] PCP - Aetna10/19/21 Dr. Ledezma Referring PhysicianOncology08/08/23 Dr. Elliott Referring PhysicianCardiology08/08/23 Dr. Clemons Referring PhysicianRheumatology08/08/23 Dr. Becerril Referring PhysicianPulmonary Disease08/08/23 Dr. Franco Referring PhysicianOtolaryngology08/08/23 Emely Bonilla Referring PhysicianPalliative Medicine08/08/23Team MemberRelationshipSpecialty Start DateEnd Date Bee Vail MD [address] [facility] [place] [address] PCP - GeneralInternal Medicine06/26/22 Bee Vail MD [address] [facility] [place] [address] PCP - Aetna10/19/21 Dr. Ledezma Referring PhysicianOncology08/08/23 Dr. Elliott Referring PhysicianCardiology08/08/23 Dr[address] Clemons Referring PhysicianRheumatology08/08/23 Dr. Becerril Referring PhysicianPulmonary Disease08/08/23 Dr. Franco Referring PhysicianOtolaryngology08/08/23 Emely Bonilla Referring PhysicianPalliative Medicine08/08/23Team MemberRelationshipSpecialty Start DateEnd Date Bee Vail MD PCP - GeneralInternal Medicine05/07/16 Irene Han, ACCOUNT SERVICES ASSOCIATE.TRAINING AND DEVELOPMENT DIRECTOR [address] [place] [address] Palliative Medicine ProviderHospice & Palliative Medicine06/28/21 Kylie Mosher, RN Specialty Care CoordinatorHospice & Palliative Medicine09/27/21 Ruperto Ledezma MD [address] [place] [address] [place] [address] CpmuexubgYodxviggqi59/22/23 Ellyn Keller, ACCOUNT SERVICES ASSOCIATE.TRAINING AND DEVELOPMENT DIRECTOR [address] [facility] [place] [address] ReferringNurse Practitioner02/26/23 Ellyn Keller, ACCOUNT SERVICES ASSOCIATE.TRAINING AND DEVELOPMENT DIRECTOR [address] [facility] [place] [address] ReferringNurse Practitioner03/06/23 Fabiana Johnson, MANAGER STRATEGIC MARKETING Social Worker03/08/23 Sheila Lin, ACCOUNT SERVICES ASSOCIATE.TRAINING AND DEVELOPMENT DIRECTOR [address] [facility] [place] [address] ReferringInternal Akmphafu08/15/24Team MemberRelationshipSpecialtyStart DateEnd Date Bee Vail MD PCP - GeneralInternal Medicine05/07/16 Irene Han, ACCOUNT SERVICES ASSOCIATE.TRAINING AND DEVELOPMENT DIRECTOR [address] [place] [address] Palliative Medicine ProviderHospice & Palliative Medicine06/28/21 Kylie Mosher, RN Specialty Care CoordinatorHospice & Palliative Medicine09/27/21 Ruperto Ledezma MD [address] [place] [address] [place] [address] AiiyzbqehTvsppchzsh21/22/23 Ellyn Keller, ACCOUNT SERVICES ASSOCIATE.TRAINING AND DEVELOPMENT DIRECTOR [address] [place] [address] ReferringNurse Practitioner02/26/23 Ellyn Keller, ACCOUNT SERVICES ASSOCIATE.TRAINING AND DEVELOPMENT DIRECTOR [address] [facility] [address] ReferringNurse Practitioner03/06/23 Fabiana Johnson MANAGER STRATEGIC MARKETING Social Worker03/08/23 Sheila Lin, ACCOUNT SERVICES ASSOCIATE.TRAINING AND DEVELOPMENT DIRECTOR [address] [place] [address] [place] [address] ReferringInternal Shghthug55/15/24Team MemberRelationshipSpecialtyStart DateEnd Bee Calhoun MD PCP - GeneralInternal Medicine05/07/16 Irene Han, ACCOUNT SERVICES ASSOCIATE.TRAINING AND DEVELOPMENT DIRECTOR [address] [place] [address] Palliative Medicine ProviderHospice & Palliative Medicine06/28/21 Kylie Mosher, RN Specialty Care CoordinatorHospice & Palliative Medicine09/27/21 Ruperto Ledezma MD [address] [place] [address] [place] [address] UxcnmcxyqHttmkmmxba76/22/23 Ellyn Keller APRN.TRAINING AND DEVELOPMENT DIRECTOR [address] [place] [address] ReferringNurse Practitioner02/26/23 Ellyn Keller ACCOUNT SERVICES ASSOCIATE.TRAINING AND DEVELOPMENT DIRECTOR [address] [place] [address] ReferringNurse Practitioner03/06/23 Fabiana Johnson LSW Social Worker03/08/23 Sheila Lin, ACCOUNT SERVICES ASSOCIATE.TRAINING AND DEVELOPMENT DIRECTOR [address] [facility] [place] [address] ReferringInternal Wuhrpwqd20/15/24Team MemberRelationshipSpecialtyStart DateEnd Date Bee Vail MD PCP - GeneralInternal Medicine05/07/16 Irene Han, LORY.TRAINING AND DEVELOPMENT DIRECTOR [address] [place] [address] Palliative Medicine ProviderHospice & Palliative Medicine06/28/21 Kylie Mosher, RN Specialty Care CoordinatorHospice & Palliative Medicine09/27/21 Ruperto Ledezma MD [address] [facility] [place] [address] DkpdgpvjpZxlumamzfa60/22/23 Ellyn Keller, ACCOUNT SERVICES ASSOCIATE.TRAINING AND DEVELOPMENT DIRECTOR [address] [facility] [address] ReferringNurse Practitioner02/26/23 Ellyn Keller, ACCOUNT SERVICES ASSOCIATE.TRAINING AND DEVELOPMENT DIRECTOR [address] [facility] [address] ReferringNurse Practitioner03/06/23 Fabiana Johnson, MANAGER STRATEGIC MARKETING Social Worker03/08/23 Sheila Lin, ACCOUNT SERVICES ASSOCIATE.TRAINING AND DEVELOPMENT DIRECTOR [address] [facility] [place] [address] ReferringInternal Zwzvltbi05/15/24Team MemberRelationshipSpecialtyStart DateEnd Bee Vail MD PCP - GeneralInternal Medicine05/07/16 Irene Han, ACCOUNT SERVICES ASSOCIATE.TRAINING AND DEVELOPMENT DIRECTOR [address] [place] [address] Palliative Medicine ProviderHospice & Palliative Medicine06/28/21 Kylie Mosher, RN Specialty Care CoordinatorHospice & Palliative Medicine09/27/21 Ruperto Ledezma MD [address] [place] [address] [place] [address] QpmviwtrnKhihrirpmd88/22/23 Ellyn Keller, ACCOUNT SERVICES ASSOCIATE.TRAINING AND DEVELOPMENT DIRECTOR [address] [place] [address] [place] [address] ReferringNurse Practitioner02/26/23 Ellyn Keller, ACCOUNT SERVICES ASSOCIATE.TRAINING AND DEVELOPMENT DIRECTOR [address] [facility] [address] ReferringNurse Practitioner03/06/23 Fabiana Johnson, MANAGER STRATEGIC MARKETING Social Worker03/08/23 Sheila Lin, ACCOUNT SERVICES ASSOCIATE.TRAINING AND DEVELOPMENT DIRECTOR [address] [place] [address] [place] [address] ReferringInternal Jujyokdq31/15/24Team MemberRelationshipSpecialtyStart DateEnd Date Bee Vail MD PCP - GeneralInternal Medicine05/07/16 Irene Han, ACCOUNT SERVICES ASSOCIATE.TRAINING AND DEVELOPMENT DIRECTOR [address] [place] [address] Palliative Medicine ProviderHospice & Palliative Medicine06/28/21 Kylie Mosher, RN Specialty Care CoordinatorHospice & Palliative Medicine09/27/21 Ruperto Ledezma MD [address] [place] [address] [place] [address] RsdwuxefgVaoiwtoflp56/22/23 Ellyn Keller, ACCOUNT SERVICES ASSOCIATE.TRAINING AND DEVELOPMENT DIRECTOR [address] [facility] [place] [address] ReferringNurse Practitioner02/26/23 Ellyn Keller, ACCOUNT SERVICES ASSOCIATE.TRAINING AND DEVELOPMENT DIRECTOR [address] [facility] [place] [address] ReferringNurse Practitioner03/06/23 Fabiana Johnson, [facility] Social Worker03/08/23 Sheila Lin, ACCOUNT SERVICES ASSOCIATE.TRAINING AND DEVELOPMENT DIRECTOR [address] [facility] [place] [address] ReferringInternal Vsauidwk76/15/24Te MemberRelationshipSpecialtyStart DateEnd Date Bee Vail MD [address] [place] [address] PCP - GeneralInternal Medicine06/26/22 Bee Vail MD [address] [place] [address] PCP - Aetna10/19/21 Dr. Ledezma Referring PhysicianOncology08/08/23 Dr. Elliott Referring PhysicianCardiology08/08/23 Dr. Clemons Referring PhysicianRheumatology08/08/23 Dr. Becerril Referring PhysicianPulmonary Disease08/08/23 Dr. Franco Referring PhysicianOtolaryngology08/08/23 Emely Bonilla Referring PhysicianPalliative Medicine08/08/23Team MemberRelationshipSpecialty Start DateEnd Date Bee Vail MD PCP - GeneralInternal Medicine05/07/16 Irene Han, ACCOUNT SERVICES ASSOCIATE.TRAINING AND DEVELOPMENT DIRECTOR [address] [place] [address] Palliative Medicine ProviderHospice & Palliative Medicine06/28/21 Kylie Mosher, RN Specialty Care CoordinatorHospice & Palliative Medicine09/27/21 Ruperto Ledezma MD [address] [place] [address] [place] [address] AtrijfmylPdtuykupju80/22/23 Ellyn Keller, ACCOUNT SERVICES ASSOCIATE.TRAINING AND DEVELOPMENT DIRECTOR [address] [place] [address] ReferringNurse Practitioner02/26/23 Ellyn Keller, ACCOUNT SERVICES ASSOCIATE.TRAINING AND DEVELOPMENT DIRECTOR [address] [place] [address] ReferringNurse Practitioner03/06/23 Fabiana Johnson LSW Social Worker03/08/23 Sheila Lin, ACCOUNT SERVICES ASSOCIATE.TRAINING AND DEVELOPMENT DIRECTOR [address] [facility] [place] [address] ReferringInternal Yfoogexd54/15/24Team MemberRelationshipSpecialtyStart DateEnd Date Bee Vail MD PCP - GeneralInternal Medicine05/07/16 Irene Han, ACCOUNT SERVICES ASSOCIATE.TRAINING AND DEVELOPMENT DIRECTOR [address] [place], [place] [address] Palliative Medicine ProviderHospice & Palliative Medicine06/28/21 Kylie Mosher, RN Specialty Care CoordinatorHospice & Palliative Medicine09/27/21 Ruperto Ledezma MD [address] [place] [address] [place] [address] DraevsekzNfsqiytbxj32/22/23 Ellyn Keller, ACCOUNT SERVICES ASSOCIATE.TRAINING AND DEVELOPMENT DIRECTOR [address] [place] [address] ReferringNurse Practitioner02/26/23 Ellyn Keller, ACCOUNT SERVICES ASSOCIATE.TRAINING AND DEVELOPMENT DIRECTOR [address] [facility] [address] ReferringNurse Practitioner03/06/23 Fabiana Johnson, [facility] Social Worker03/08/23 Sheila Lin, ACCOUNT SERVICES ASSOCIATE.TRAINING AND DEVELOPMENT DIRECTOR [address] [facility] [place] [address] ReferringInternal Orijsjhf26/15/24Te MemberRelationshipSpecialtyStart DateEnd Date Bee Vail MD PCP - GeneralInternal Medicine05/07/16 Irene Han, ACCOUNT SERVICES ASSOCIATE.TRAINING AND DEVELOPMENT DIRECTOR [address] [place] [address] Palliative Medicine ProviderHospice & Palliative Medicine06/28/21 Kylie Mosher, RN Specialty Care CoordinatorHospice & Palliative Medicine09/27/21 Ruperto Ledezma MD [address] [place] [address] [place] [address] QppkhavmlWeqzmeztnd85/22/23 Ellyn Keller, ACCOUNT SERVICES ASSOCIATE.TRAINING AND DEVELOPMENT DIRECTOR [address] [place] [address] ReferringNurse Practitioner02/26/23 Ellyn Keller, ACCOUNT SERVICES ASSOCIATE.TRAINING AND DEVELOPMENT DIRECTOR [address] [place] [address] ReferringNurse Practitioner03/06/23 Fabiana Johnson, [facility] Social Worker03/08/23 Sheila Lin, ACCOUNT SERVICES ASSOCIATE.TRAINING AND DEVELOPMENT DIRECTOR [address] [facility] [place] [address] ReferringInternal Hqegxmet15/15/24Team MemberRelationshipSpecialtyStart DateEnd Bee Vail MD PCP - GeneralInternal Medicine05/07/16 Irene Han, ACCOUNT SERVICES ASSOCIATE.TRAINING AND DEVELOPMENT DIRECTOR [address] [place] [address] Palliative Medicine ProviderHospice & Palliative Medicine06/28/21 Kylie Mosher, RN Specialty Care CoordinatorHospice & Palliative Medicine09/27/21 Ruperto Ledezma MD [address] [place] [address] [place] [address] VumqyobzpDgyecozixk61/22/23 Ellyn Keller, ACCOUNT SERVICES ASSOCIATE.TRAINING AND DEVELOPMENT DIRECTOR [address] [place] [address] ReferringNurse Practitioner02/26/23 Ellyn Keller, ACCOUNT SERVICES ASSOCIATE.TRAINING AND DEVELOPMENT DIRECTOR [address] [place] [address] ReferringNurse Practitioner03/06/23 Fabiana Johnson LSW Social Worker03/08/23 Sheila Lin, ACCOUNT SERVICES ASSOCIATE.TRAINING AND DEVELOPMENT DIRECTOR [address] [facility] [place] [address] ReferringInternal Rhbrnsso27/15/24Team MemberRelationshipSpecialtyStart DateEnd Bee Vail MD PCP - GeneralInternal Medicine05/07/16 Irene Han, ACCOUNT SERVICES ASSOCIATE.TRAINING AND DEVELOPMENT DIRECTOR [address] [place] [address], [place] [address] Palliative Medicine ProviderHospice & Palliative Medicine06/28/21 Kylie Mosher, RN Specialty Care CoordinatorHospice & Palliative Medicine09/27/21 Ruperto Ledezma MD [address] [place] [address] [place] [address] DzmmmhvefZknbgfdkdy99/22/23 Ellyn Keller, ACCOUNT SERVICES ASSOCIATE.TRAINING AND DEVELOPMENT DIRECTOR [address] [place] [address] ReferringNurse Practitioner02/26/23 Ellyn Keller, ACCOUNT SERVICES ASSOCIATE.TRAINING AND DEVELOPMENT DIRECTOR [address] [place] [address] ReferringNurse Practitioner03/06/23 Fabiana Johnson, MANAGER [employer] Social Worker03/08/23 Sheila Lin, ACCOUNT SERVICES ASSOCIATE.TRAINING AND DEVELOPMENT DIRECTOR [address] [facility] [place] [address] ReferringInternal Rtifxefh25/15/24Team MemberRelationshipSpecialtyStart DateEnd Date Bee Vail MD PCP - GeneralInternal Medicine05/07/16 Irene Han, ACCOUNT SERVICES ASSOCIATE.TRAINING AND DEVELOPMENT DIRECTOR [address] [place] [address] Palliative Medicine ProviderHospice & Palliative Medicine06/28/21 Kylie Mosher RN Specialty Care CoordinatorHospice & Palliative Medicine09/27/21 Ruperto Ledezma MD [address] [place] [address] [place] [address] SomonqjtjFdazbtokzp97/22/23 Ellyn Keller, ACCOUNT SERVICES ASSOCIATE.TRAINING AND DEVELOPMENT DIRECTOR [address] [place] [address] [place] [address] ReferringNurse Practitioner02/26/23 Ellyn Keller, ACCOUNT SERVICES ASSOCIATE.TRAINING AND DEVELOPMENT DIRECTOR [address] [place] [address] ReferringNurse Practitioner03/06/23 Fabiana Johnson, MANAGER [employer] MARKET[employer] Social Worker03/08/23 Sheila Lin, ACCOUNT SERVICES ASSOCIATE.TRAINING AND DEVELOPMENT DIRECTOR [address] [facility] [place] [address] ReferringInternal Bjkcjgpc36/15/24Team MemberRelationshipSpecialtyStart DateEnd Date Bee Vail MD PCP - GeneralInternal Medicine05/07/16 Irene Han, ACCOUNT SERVICES ASSOCIATE.TRAINING AND DEVELOPMENT DIRECTOR [address] [place] [address] Palliative Medicine ProviderHospice & Palliative Medicine06/28/21 Kylie Mosher, RN Specialty Care CoordinatorHospice & Palliative Medicine09/27/21 Ruperto Ledezma MD [address] [place] [address] [place] [address] FmnwuihszMtmcjnlzul70/22/23 Ellyn Keller, ACCOUNT SERVICES ASSOCIATE.TRAINING AND DEVELOPMENT DIRECTOR [address] [place] [address] ReferringNurse Practitioner02/26/23 Ellyn Keller, ACCOUNT SERVICES ASSOCIATE.TRAINING AND DEVELOPMENT DIRECTOR [address] [place] [address] ReferringNurse Practitioner03/06/23 Fabiana Johnson MANAGER STRATE[employer]IC MARKETING Social Worker03/08/23 Sheila Lin, ACCOUNT SERVICES ASSOCIATE.TRAINING AND DEVELOPMENT DIRECTOR [address] [facility] [place] [address] ReferringInternal Uyxpuyte60/15/24Team MemberRelationshipSpecialtyStart DateEnd Bee Vail MD PCP - GeneralInternal Medicine05/07/16 Irene Han, ACCOUNT SERVICES ASSOCIATE.TRAINING AND DEVELOPMENT DIRECTOR [address] [place] [address] Palliative Medicine ProviderHospice & Palliative Medicine06/28/21 Kylie Mosher, RN Specialty Care CoordinatorHospice & Palliative Medicine09/27/21 Ruperto Ledezma MD [address] [place] [address] [place] [address] KrhbtapdcHnopcfvsjf37/22/23 Ellyn Keller, ACCOUNT SERVICES ASSOCIATE.TRAINING AND DEVELOPMENT DIRECTOR [address] [place] [address] ReferringNurse Practitioner02/26/23 Ellyn Keller, ACCOUNT SERVICES ASSOCIATE.TRAINING AND DEVELOPMENT DIRECTOR [address] [place] [address] ReferringNurse Practitioner03/06/23 Fabiana Johnson LSW Social Worker03/08/23 Sheila Lin, ACCOUNT SERVICES ASSOCIATE.TRAINING AND DEVELOPMENT DIRECTOR [address] [facility] [place] [address] ReferringInternal Omkxmxzh32/15/24Team MemberRelationshipSpecialtyStart DateEnd Bee Vail MD PCP - GeneralInternal Medicine05/07/16 Irene Han, ACCOUNT SERVICES ASSOCIATE.TRAINING AND DEVELOPMENT DIRECTOR [address] [place] [address] Palliative Medicine ProviderHospice & Palliative Medicine06/28/21 Kylie Mosher, RN Specialty Care CoordinatorHospice & Palliative Medicine09/27/21 Ruperto Ledezma MD [address] [facility] [place] [address] RbkwscgcjGmqashyzwd64/22/23 Ellyn Keller, ACCOUNT SERVICES ASSOCIATE.TRAINING AND DEVELOPMENT DIRECTOR [address] [place] [address] ReferringNurse Practitioner02/26/23 Ellyn Keller, ACCOUNT SERVICES ASSOCIATE.TRAINING AND DEVELOPMENT DIRECTOR [address] [place] [address] ReferringNurse Practitioner03/06/23 Fabiana Johnson LSW Social Worker03/08/23 Sheila Lin, ACCOUNT SERVICES ASSOCIATE.TRAINING AND DEVELOPMENT DIRECTOR [address] [facility] [place] [address] ReferringInternal Wdxyrzrz46/15/24Team MemberRelationshipSpecialtyStart DateEnd Date Bee Vail MD [address] [facility] [place] [address] PCP - GeneralInternal Medicine06/26/22 Bee Vail MD [address] [facility] [place] [address] PCP - Aetna10/19/21 Dr. Ledezma Referring PhysicianOncology08/08/23 Dr. Elliott Referring PhysicianCardiology08/08/23 Dr. Clemons Referring PhysicianRheumatology08/08/23 Dr. Becerril Referring PhysicianPulmonary Disease08/08/23 Dr. Franco Referring PhysicianOtolaryngology08/08/23 Emely Bonilla Referring PhysicianPalliative Medicine08/08/23Team MemberRelationshipSpecialty Start DateEnd Date Bee Vail MD PCP - GeneralInternal Medicine05/07/16 Irene Han, ACCOUNT SERVICES ASSOCIATE.TRAINING AND DEVELOPMENT DIRECTOR [address] [place] [address] Palliative Medicine ProviderHospice & Palliative Medicine06/28/21 Kylie Mosher, RN Specialty Care CoordinatorHospice & Palliative Medicine09/27/21 Ruperto Ledezma MD [address] [place] [address] [place] [address] BpkzxjdacPhssxosjcu91/22/23 Ellyn Keller, ACCOUNT SERVICES ASSOCIATE.TRAINING AND DEVELOPMENT DIRECTOR [address] [facility] [address] ReferringNurse Practitioner02/26/23 Ellyn Keller, ACCOUNT SERVICES ASSOCIATE.TRAINING AND DEVELOPMENT DIRECTOR [address] [facility] [address] ReferringNurse Practitioner03/06/23 Fabiana Johnson LSW Social Worker03/08/23 Sheila Lin, ACCOUNT SERVICES ASSOCIATE.TRAINING AND DEVELOPMENT DIRECTOR [address] [facility] [place] [address] ReferringInternal Immfypgd75/15/24Team MemberRelationshipSpecialtyStart Date Bee Vail MD PCP - GeneralInternal Medicine05/07/16 Irene Han, ACCOUNT SERVICES ASSOCIATE.TRAINING AND DEVELOPMENT DIRECTOR [address] [place] [address] Palliative Medicine ProviderHospice & Palliative Medicine06/28/21 Kylie Mosher, RN Specialty Care CoordinatorHospice & Palliative Medicine09/27/21 Ruperto Ledezma MD [address] [place] [address] [place] [address] QmpkedkfnRfcjklwjnk48/22/23 Ellny Keller, ACCOUNT SERVICES ASSOCIATE.TRAINING AND DEVELOPMENT DIRECTOR [address] [facility] [address] ReferringNurse Practitioner02/26/23 Ellyn Keller, ACCOUNT SERVICES ASSOCIATE.TRAINING AND DEVELOPMENT DIRECTOR [address] [facility] [address] ReferringNurse Practitioner03/06/23 Fabiana Johnson, MANAGER STRATEGIC MARKETING Social Worker03/08/23 Sheila Lin, ACCOUNT SERVICES ASSOCIATE.TRAINING AND DEVELOPMENT DIRECTOR [address] [place] [address] [place] [address] ReferringInternal Ebhnavdz17/15/24Team MemberRelationshipSpecialtyStart DateEnd Date Bee Vail MD PCP - GeneralInternal Medicine05/07/16 Irene Han, ACCOUNT SERVICES ASSOCIATE.TRAINING AND DEVELOPMENT DIRECTOR [address] [place] [address] Palliative Medicine ProviderHospice & Palliative Medicine06/28/21 Kylie Mosher, RN Specialty Care CoordinatorHospice & Palliative Medicine09/27/21 Ruperto Ledezma MD [address] [place] [address] [place] [address] EbrltppwoUlewaiaphj11/22/23 Ellyn Keller, ACCOUNT SERVICES ASSOCIATE.TRAINING AND DEVELOPMENT DIRECTOR [address] [place] [address] [place] [address] ReferringNurse Practitioner02/26/23 Ellyn Keller, ACCOUNT SERVICES ASSOCIATE.TRAINING AND DEVELOPMENT DIRECTOR [address] [facility] [address] ReferringNurse Practitioner03/06/23 Fabiana Johnson, MANAGER STRATEGIC MARKETING Social Worker03/08/23 Sheila Lin, ACCOUNT SERVICES ASSOCIATE.TRAINING AND DEVELOPMENT DIRECTOR [address] [place] [address] [place] [address] ReferringInternal Nrhkbeec30/15/24Team MemberRelationshipSpecialtyStart DateEnd Date Bee Vail MD [address] [facility] [place] [address] PCP - GeneralInternal Medicine06/26/22 Bee Vail MD [address] [facility] [place] [address] PCP - Aetna10/19/21 Dr. Ledezma Referring PhysicianOncology08/08/23 Dr. Elliott Referring PhysicianCardiology08/08/23 Dr. Clemons Referring PhysicianRheumatology08/08/23 Dr. Becerril Referring PhysicianPulmonary Disease08/08/23 Dr. Franco Referring PhysicianOtolaryngology08/08/23 Emely Bonilla Referring PhysicianPalliative Medicine08/08/23Team MemberRelationshipSpecialty Start DateEnd Date Bee Vail MD [address] [facility] [place] [address] PCP - GeneralInternal Medicine06/26/22 Bee Vail MD [address] [facility] [place] [address] PCP - Aetna10/19/21 Dr. Ledezma Referring PhysicianOncology08/08/23 Dr. Elliott Referring PhysicianCardiology08/08/23 Dr. Clemons Referring PhysicianRheumatology08/08/23 Dr. Becerril Referring PhysicianPulmonary Disease08/08/23 Dr. Franco Referring PhysicianOtolaryngology08/08/23 Emely Bonilla Referring PhysicianPalliative Medicine08/08/23Team MemberRelationshipSpecialty Start DateEnd Date Bee Vail MD [address] [facility] [place] [address] PCP - GeneralInternal Medicine06/26/22 Bee Vail MD [address] [facility] [place] [address] PCP - Aetna10/19/21 Dr. Ledezma Referring PhysicianOncology08/08/23 Dr. Elliott Referring PhysicianCardiology08/08/23 Dr. Clemons Referring PhysicianRheumatology08/08/23 Dr. Becerril Referring PhysicianPulmonary Disease08/08/23 Dr. Franco Referring PhysicianOtolaryngology08/08/23 Emely Bonilla Referring PhysicianPalliative Medicine08/08/23Team MemberRelationshipSpecialty Start DateEnd Date Bee Vail MD PCP - GeneralInternal Medicine05/07/16 Irene Han, ACCOUNT SERVICES ASSOCIATE.TRAINING AND DEVELOPMENT DIRECTOR [address] [place] [address] Palliative Medicine ProviderHospice & Palliative Medicine06/28/21 Kylie Mosher, RN Specialty Care CoordinatorHospice & Palliative Medicine09/27/21 Ruperto Ledezma MD [address] [place] [address] [place] [address] EpshixuvaMmitvlbmzm63/22/23 Ellyn Keller, ACCOUNT SERVICES ASSOCIATE.TRAINING AND DEVELOPMENT DIRECTOR [address] [place] [address] [place] [address] ReferringNurse Practitioner02/26/23 Ellyn Keller, ACCOUNT SERVICES ASSOCIATE.TRAINING AND DEVELOPMENT DIRECTOR [address] [facility] [address] ReferringNurse Practitioner03/06/23 Fabiana Johnson, MANAGER STRATEGIC MARKETING Social Worker03/08/23 Sheila Lin, ACCOUNT SERVICES ASSOCIATE.TRAINING AND DEVELOPMENT DIRECTOR [address] [facility] [place] [address] ReferringInternal Xvmshaul23/15/24Team MemberRelationshipSpecialtyStart DateEnd Date Bee Vail MD [address] [facility] [place] [address] PCP - GeneralInternal Medicine06/26/22 Bee Vail MD [address] [place] [address] [place] [address] PCP - Aetna10/19/21 Dr. Ledezma Referring PhysicianOncology08/08/23 Dr. Elliott Referring PhysicianCardiology08/08/23 Dr. Clemons Referring PhysicianRheumatology08/08/23 Dr. Becerril Referring PhysicianPulmonary Disease08/08/23 Dr. Franco Referring PhysicianOtolaryngology08/08/23 Emely Bonilla Referring PhysicianPalliative Medicine08/08/23Team MemberRelationshipSpecialty Start DateEnd Date Bee Vail MD PCP - GeneralInternal Medicine05/07/16 Irene Han, ACCOUNT SERVICES ASSOCIATE.TRAINING AND DEVELOPMENT DIRECTOR [address] [place] [address] Palliative Medicine ProviderHospice & Palliative Medicine06/28/21 Kylie Mosher, RN Specialty Care CoordinatorHospice & Palliative Medicine09/27/21 Ruperto Ledezma MD [address] [place] [address] [place] [address] PitcpskipJvshxxufne54/22/23 Ellyn Keller, ACCOUNT SERVICES ASSOCIATE.TRAINING AND DEVELOPMENT DIRECTOR [address] [facility] [address] ReferringNurse Practitioner02/26/23 Ellyn Keller, ACCOUNT SERVICES ASSOCIATE.TRAINING AND DEVELOPMENT DIRECTOR [address] [facility] [address] ReferringNurse Practitioner03/06/23 Fabiana Johnson LSW Social Worker03/08/23 Sheila Lin, ACCOUNT SERVICES ASSOCIATE.TRAINING AND DEVELOPMENT DIRECTOR [address] [facility] [place] [address] ReferringInternal Yvcpotmr73/15/24Team MemberRelationshipSpecialtyStart DateEnd Date Bee Vail MD PCP - GeneralInternal Medicine05/07/16 Irene Han, ACCOUNT SERVICES ASSOCIATE.TRAINING AND DEVELOPMENT DIRECTOR [address] [place] [address] Palliative Medicine ProviderHospice & Palliative Medicine06/28/21 Kylie Mosher, RN Specialty Care CoordinatorHospice & Palliative Medicine09/27/21 Ruperto Ledezma MD [address] [place] [address] [place] [address] HlxjzvcbsSirdgryewn13/22/23 Ellyn Keller, ACCOUNT SERVICES ASSOCIATE.TRAINING AND DEVELOPMENT DIRECTOR [address] [place] [address] [place] [address] ReferringNurse Practitioner02/26/23 Ellyn Keller, ACCOUNT SERVICES ASSOCIATE.TRAINING AND DEVELOPMENT DIRECTOR [address] [facility] [address] ReferringNurse Practitioner03/06/23 Fabiana Johnson, MANAGER STRATEGIC MARKETING Social Worker03/08/23 Sheila Lin, ACCOUNT SERVICES ASSOCIATE.TRAINING AND DEVELOPMENT DIRECTOR [address] [facility] [place] [address] ReferringInternal Rbzdcatn23/15/24Team MemberRelationshipSpecialtyStart DateEnd Date Bee Vail MD PCP - GeneralInternal Medicine05/07/16 Irene Han, ACCOUNT SERVICES ASSOCIATE.TRAINING AND DEVELOPMENT DIRECTOR [address] [place] [address] Palliative Medicine ProviderHospice & Palliative Medicine06/28/21 Kylie Mosher RN Specialty Care CoordinatorHospice & Palliative Medicine09/27/21 Ruperto Ledezma MD [address] [place] [address] [place] [address] AsdfpdoehCtssbfrabl25/22/23 Ellyn Keller, ACCOUNT SERVICES ASSOCIATE.TRAINING AND DEVELOPMENT DIRECTOR [address] [place] [address] [place] [address] ReferringNurse Practitioner02/26/23 Ellyn Keller, ACCOUNT SERVICES ASSOCIATE.TRAINING AND DEVELOPMENT DIRECTOR [address] [facility] [address] ReferringNurse Practitioner03/06/23 Fabiana Johnson, TATO Social Worker03/08/23 Sheila Lin, ACCOUNT SERVICES ASSOCIATE.TRAINING AND DEVELOPMENT DIRECTOR [address] [place] [address] [place] [address] ReferringInternal Blcilsra19/15/24Team MemberRelationshipSpecialtyStkerrick DateEnd Date Bee Vail MD [address] [facility] [place] [address] PCP - GeneralInternal Medicine06/26/22 Bee Vail MD [address] [facility] [place] [address] PCP - Aetna10/19/21 Dr. Ledezma Referring PhysicianOncology08/08/23 Dr. Elliott Referring PhysicianCardiology08/08/23 Dr. Clemons Referring PhysicianRheumatology08/08/23 Dr. Becerril Referring PhysicianPulmonary Disease08/08/23 Dr. Franco Referring PhysicianOtolaryngology08/08/23 Emely Bonilla Referring PhysicianPalliative Medicine08/08/23Team MemberRelationshipSpecialty Start DateEnd Date Bee Vail MD PCP - GeneralInternal Medicine05/07/16 Irene Han, ACCOUNT SERVICES ASSOCIATE.TRAINING AND DEVELOPMENT DIRECTOR [address] [place] [address] Palliative Medicine ProviderHospice & Palliative Medicine06/28/21 Kylie Mosher, RN Specialty Care CoordinatorHospice & Palliative Medicine09/27/21 Ruperto Ledezma MD [address] [place] [address] [place] [address] GzgrpkgkrUfwytktqcp90/22/23 Ellyn Keller, ACCOUNT SERVICES ASSOCIATE.TRAINING AND DEVELOPMENT DIRECTOR [address] [place] [address] [place] [address] ReferringNurse Practitioner02/26/23 Ellyn Keller, ACCOUNT SERVICES ASSOCIATE.TRAINING AND DEVELOPMENT DIRECTOR [address] [place] [address] ReferringNurse Practitioner03/06/23 Fabiana Johnson, MANAGER STRATEGIC MARKETING Social Worker03/08/23 Sheila Lin, ACCOUNT SERVICES ASSOCIATE.TRAINING AND DEVELOPMENT DIRECTOR [address] [facility] [place] [address] ReferringInternal Xsscnmxi56/15/24Team MemberRelationshipSpecialtyStart DateEnd Date Bee Vail MD PCP - GeneralInternal Medicine05/07/16 Irene Han, ACCOUNT SERVICES ASSOCIATE.TRAINING AND DEVELOPMENT DIRECTOR [address] [place] [address] Palliative Medicine ProviderHospice & Palliative Medicine06/28/21 Kylie Mosher RN Specialty Care CoordinatorHospice & Palliative Medicine09/27/21 Ruperto Ledezma MD [address] [place] [address] [place] [address] AklgqlaczMmnrqammca93/22/23 Ellyn Keller, ACCOUNT SERVICES ASSOCIATE.TRAINING AND DEVELOPMENT DIRECTOR [address] [place] [address] [place] [address] ReferringNurse Practitioner02/26/23 Ellyn Keller, ACCOUNT SERVICES ASSOCIATE.TRAINING AND DEVELOPMENT DIRECTOR [address] [facility] [address] ReferringNurse Practitioner03/06/23 Fabiana Johnson, TATO Social Worker03/08/23 Sheila Lin, ACCOUNT SERVICES ASSOCIATE.TRAINING AND DEVELOPMENT DIRECTOR [address] [facility] [place] [address] ReferringInternal Wvgaelpw53/15/24Team MemberRelationshipSpecialtyStart DateEnd Date Bee Vail MD PCP - GeneralInternal Medicine05/07/16 Irene Han, ACCOUNT SERVICES ASSOCIATE.TRAINING AND DEVELOPMENT DIRECTOR [address] [place] [address] Palliative Medicine ProviderHospice & Palliative Medicine06/28/21 Kylie Mosher, RN Specialty Care CoordinatorHospice & Palliative Medicine09/27/21 Ruperto Ledezma MD [address] [place] [address] [place] [address] ZmzyygjnaSaszhxiljm04/22/23 Ellyn Keller, ACCOUNT SERVICES ASSOCIATE.TRAINING AND DEVELOPMENT DIRECTOR [address] [facility] [address] ReferringNurse Practitioner02/26/23 Ellyn Keller, ACCOUNT SERVICES ASSOCIATE.TRAINING AND DEVELOPMENT DIRECTOR [address] [place] [address] ReferringNurse Practitioner03/06/23 Fabiana Johnson LSW Social Worker03/08/23 Sheila Lin, ACCOUNT SERVICES ASSOCIATE.TRAINING AND DEVELOPMENT DIRECTOR [address] [facility] [place] [address] ReferringInternal Bolsudry32/15/24Team MemberRelationshipSpecialtyStart DateEnd Date Bee Vail MD PCP - GeneralInternal Medicine05/07/16 Irene Han, ACCOUNT SERVICES ASSOCIATE.TRAINING AND DEVELOPMENT DIRECTOR [address] [place] [address] Palliative Medicine ProviderHospice & Palliative Medicine06/28/21 Kylie Mosher, RN Specialty Care CoordinatorHospice & Palliative Medicine09/27/21 Ruperto Ledezma MD [address] [place] [address] [place] [address] VwjlgqxoyXrphhzejym95/22/23 Ellyn Keller, ACCOUNT SERVICES ASSOCIATE.TRAINING AND DEVELOPMENT DIRECTOR [address] [place] [address] ReferringNurse Practitioner02/26/23 Ellyn Keller, ACCOUNT SERVICES ASSOCIATE.TRAINING AND DEVELOPMENT DIRECTOR [address] [place] [address] ReferringNurse Practitioner03/06/23 Fabiana Johnson LSW Social Worker03/08/23 Sheila Lin, ACCOUNT SERVICES ASSOCIATE.TRAINING AND DEVELOPMENT DIRECTOR [address] [facility] [place] [address] ReferringInternal Pqedxqyt40/15/24Team MemberRelationshipSpecialtyStart DateEnd Date Bee Vail MD [address] [facility] [place] [address] PCP - GeneralInternal Medicine06/26/22 Bee Vail MD [address] [facility] [place] [address] PCP - Aetna10/19/21 Dr. Ledezma Referring PhysicianOncology08/08/23 Dr. Elliott Referring PhysicianCardiology08/08/23 Dr. Clemons Referring PhysicianRheumatology08/08/23 Dr. Becerril Referring PhysicianPulmonary Disease08/08/23 Dr. Franco Referring PhysicianOtolaryngology08/08/23 Emely Bonilla Referring PhysicianPalliative Medicine08/08/23Team MemberRelationshipSpecialty Start DateEnd Date Bee Vail MD PCP - GeneralInternal Medicine05/07/16 Irene Han, ACCOUNT SERVICES ASSOCIATE.TRAINING AND DEVELOPMENT DIRECTOR [facility] [place] [address] Palliative Medicine ProviderHospice & Palliative Medicine06/28/21 Kylie Mosher, RN Specialty Care CoordinatorHospice & Palliative Medicine09/27/21 Ruperto Ledezma MD [address] [place] [address] [place] [address] ScjddnjrqGpyoezbhfr64/22/23 Ellyn Keller, ACCOUNT SERVICES ASSOCIATE.TRAINING AND DEVELOPMENT DIRECTOR [address] [facility] [address] ReferringNurse Practitioner02/26/23 Ellyn Keller, ACCOUNT SERVICES ASSOCIATE.TRAINING AND DEVELOPMENT DIRECTOR [address] [facility] [address] ReferringNurse Practitioner03/06/23 Fabiana Johnson MANAGER STRATEGIC MARKETING Social Worker03/08/23 Sheila Lin, ACCOUNT SERVICES ASSOCIATE.TRAINING AND DEVELOPMENT DIRECTOR [address] [facility] [place] [address] ReferringInternal Aahnfqle96/15/24Team MemberRelationshipSpecialtyStart DateEnd Bee Vail MD PCP - GeneralInternal Medicine05/07/16 Irene Han, ACCOUNT SERVICES ASSOCIATE.TRAINING AND DEVELOPMENT DIRECTOR [address] [place] [address] Palliative Medicine ProviderHospice & Palliative Medicine06/28/21 Kylie Mosher, RN Specialty Care CoordinatorHospice & Palliative Medicine09/27/21 Ruperto Ledezma MD [address] [place] [address] [place] [address] OgfmpkcsrVkxnujunkq33/22/23 Ellyn Keller, ACCOUNT SERVICES ASSOCIATE.TRAINING AND DEVELOPMENT DIRECTOR [address] [facility] [address] ReferringNurse Practitioner02/26/23 Ellyn Keller, ACCOUNT SERVICES ASSOCIATE.TRAINING AND DEVELOPMENT DIRECTOR [address] [place] [address] ReferringNurse Practitioner03/06/23 Fabiana Johnson LSW Social Worker03/08/23 Sheila Lin, ACCOUNT SERVICES ASSOCIATE.TRAINING AND DEVELOPMENT DIRECTOR [address] [facility] [place] [address] ReferringInternal Kdojrsag13/15/24Team MemberRelationshipSpecialtyStart DateEnd Date Bee Vail MD [address] [facility] [place] [address] PCP - GeneralInternal Medicine06/26/22 Bee Vail MD [address] [facility] [place] [address] PCP - Aetna10/19/21 Dr. Ledezma Referring PhysicianOncology08/08/23 Dr. Elliott Referring PhysicianCardiology08/08/23 Dr. Clemons Referring PhysicianRheumatology08/08/23 Dr. Becerril Referring PhysicianPulmonary Disease08/08/23 Dr. Franco Referring PhysicianOtolaryngology08/08/23 Emely Bonilla Referring PhysicianPalliative Medicine08/08/23Team MemberRelationshipSpecialty Start DateEnd Date Bee Vail MD [address] [facility] [place] [address] PCP - GeneralInternal Medicine06/26/22 Bee Vail MD [address] [facility] [place] [address] PCP - Aetna10/19/21 Dr. Ledezma Referring PhysicianOncology08/08/23 Dr. Elliott Referring PhysicianCardiology08/08/23 Dr. Clemons Referring PhysicianRheumatology08/08/23 Dr. Becerril Referring PhysicianPulmonary Disease08/08/23 Dr. Franco Referring PhysicianOtolaryngology08/08/23 Emely Bonilla Referring PhysicianPalliative Medicine08/08/23Team MemberRelationshipSpecialty Start DateEnd Date Bee Vail MD [address] [facility] [place] [address] PCP - GeneralInternal Medicine06/26/22 Bee Vail MD [address] [facility] [place] [address] PCP - Aetna10/19/21 Dr. Ledezma Referring PhysicianOncology08/08/23 Dr. Elliott Referring PhysicianCardiology08/08/23 Dr[address] Clemons Referring PhysicianRheumatology08/08/23 Dr. Becerril Referring PhysicianPulmonary Disease08/08/23 Dr. Franco Referring PhysicianOtolaryngology08/08/23 Emely Bonilla Referring PhysicianPalliative Medicine08/08/23Team MemberRelationshipSpecialty Start DateEnd Date Bee Vail MD PCP - GeneralInternal Medicine05/07/16 Irene Han, ACCOUNT SERVICES ASSOCIATE.TRAINING AND DEVELOPMENT DIRECTOR [address] [place] [address] Palliative Medicine ProviderHospice & Palliative Medicine06/28/21 Kylie Mosher, RN Specialty Care CoordinatorHospice & Palliative Medicine09/27/21 Ruperto Ledezma MD [address] [place] [address] [place] [address] GyyqskhtvVwelyiycrv44/22/23 Ellyn Keller, ACCOUNT SERVICES ASSOCIATE.TRAINING AND DEVELOPMENT DIRECTOR [address] [place] [address] ReferringNurse Practitioner02/26/23 Ellyn Keller, ACCOUNT SERVICES ASSOCIATE.TRAINING AND DEVELOPMENT DIRECTOR [address] [place] [address] ReferringNurse Practitioner03/06/23 Fabiana Johnson LSW Social Worker03/08/23 Sheila Lin, ACCOUNT SERVICES ASSOCIATE.TRAINING AND DEVELOPMENT DIRECTOR [address] [facility] [place] [address] ReferringInternal Fwtcyoql30/15/24Team MemberRelationshipSpecialtyStart DateEnd Date Bee Vail MD [address] [place] [address] PCP - GeneralInternal Medicine06/26/22 Bee Vail MD [address] [place] [address] PCP - Aetna10/19/21 Dr. Ledezma Referring PhysicianOncology08/08/23 Dr. Elliott Referring PhysicianCardiology08/08/23 Dr. Clemons Referring PhysicianRheumatology08/08/23 Dr. Becerril Referring PhysicianPulmonary Disease08/08/23 Dr. Franco Referring PhysicianOtolaryngology08/08/23 Emely Bonilla Referring PhysicianPalliative Medicine08/08/23Team MemberRelationshipSpecialty Start DateEnd Date Bee Vail MD [address] [facility] [place] [address] PCP - GeneralInternal Medicine06/26/22 Bee Vail MD [address] [facility] [place] [address] PCP - Aetna10/19/21 Dr. Ledezma Referring PhysicianOncology08/08/23 Dr. Elliott Referring PhysicianCardiology08/08/23 Dr. Clemons Referring PhysicianRheumatology08/08/23 Dr. Becerril Referring PhysicianPulmonary Disease08/08/23 Dr. Franco Referring PhysicianOtolaryngology08/08/23 Emely Bonilla Referring PhysicianPalliative Medicine08/08/23Team MemberRelationshipSpecialty Start DateEnd Date Bee Vail MD [address] [facility] [place] [address] PCP - GeneralInternal Medicine06/26/22 Bee Vail MD [address] [facility] [place] [address] PCP - Aetna10/19/21 Dr. Ledezma Referring PhysicianOncology08/08/23 Dr. Elliott Referring PhysicianCardiology08/08/23 Dr[address] Clemons Referring PhysicianRheumatology08/08/23 Dr. Becerril Referring PhysicianPulmonary Disease08/08/23 Dr. Franco Referring PhysicianOtolaryngology08/08/23 Emely Bonilla Referring PhysicianPalliative Medicine08/08/23Team MemberRelationshipSpecialty Start DateEnd Date Bee Vail MD [address] [facility] [place] [address] PCP - GeneralInternal Medicine06/26/22 Bee Vail MD [address] [facility] [place] [address] PCP - Aetna10/19/21 Dr. Ledezma Referring PhysicianOncology08/08/23 Dr. Elliott Referring PhysicianCardiology08/08/23 Dr. Clemons Referring PhysicianRheumatology08/08/23 Dr. Becerril Referring PhysicianPulmonary Disease08/08/23 Dr. Franco Referring PhysicianOtolaryngology08/08/23 Emely Bonilla Referring PhysicianPalliative Medicine08/08/23Team MemberRelationshipSpecialty Start DateEnd Date Bee Vail MD [address] [facility] [place] [address] PCP - GeneralInternal Medicine06/26/22 Bee Vail MD [address] [facility] [place] [address] PCP - Aetna10/19/21 Dr. Ledezma Referring PhysicianOncology08/08/23 Dr. Elliott Referring PhysicianCardiology08/08/23 Dr[address] Clemons Referring PhysicianRheumatology08/08/23 Dr. Becerril Referring PhysicianPulmonary Disease08/08/23 Dr. Franco Referring PhysicianOtolaryngology08/08/23 Emely Bonilla Referring PhysicianPalliative Medicine08/08/23Team MemberRelationshipSpecialty Start DateEnd Date Bee Vail MD [address] [facility] [place] [address] PCP - GeneralInternal Medicine06/26/22 Bee Vail MD [address] [facility] [place] [address] PCP - Aetna10/19/21 Dr. Ledezma Referring PhysicianOncology08/08/23 Dr. Elliott Referring PhysicianCardiology08/08/23 Dr[address] Clemons Referring PhysicianRheumatology08/08/23 Dr. Becerril Referring PhysicianPulmonary Disease08/08/23 Dr. Franco Referring PhysicianOtolaryngology08/08/23 Emely Bonilla Referring PhysicianPalliative Medicine08/08/23Team MemberRelationshipSpecialty Start DateEnd Date Bee Vail MD PCP - GeneralInternal Medicine05/07/16 Irene Han, ACCOUNT SERVICES ASSOCIATE.TRAINING AND DEVELOPMENT DIRECTOR [address] [place] [address] Palliative Medicine ProviderHospice & Palliative Medicine06/28/21 Kylie Mosher, RN Specialty Care CoordinatorHospice & Palliative Medicine09/27/21 Ruperto Ledezma MD [address] [place] [address] [place] [address] LtyakyxgrPirhhxkkps23/22/23 Ellyn Keller, ACCOUNT SERVICES ASSOCIATE.TRAINING AND DEVELOPMENT DIRECTOR [address] [address] ReferringNurse Practitioner02/26/23 Ellyn Keller, ACCOUNT SERVICES ASSOCIATE.TRAINING AND DEVELOPMENT DIRECTOR [address] [place] [address] ReferringNurse Practitioner03/06/23 Fabiana Johnson, TATO Social Worker03/08/23 Sheila Lin, ACCOUNT SERVICES ASSOCIATE.TRAINING AND DEVELOPMENT DIRECTOR [address] [facility] [place] [address] ReferringInternal Vujigbrn87/15/24Team MemberRelationshipSpecialtyStart DateEnd Date Bee Vail MD [address] [facility] [place] [address] PCP - GeneralInternal Medicine06/26/22 Bee Vail MD [address] [facility] [place] [address] PCP - [employer]et[employer]10/19/21 Dr. Ledezma Referring PhysicianOncology08/08/23 Dr. Elliott Referring PhysicianCardiology08/08/23 Dr. Clemons Referring PhysicianRheumatology08/08/23 Dr. Becerril Referring PhysicianPulmonary Disease08/08/23 Dr. Franco Referring PhysicianOtolaryngology08/08/23 Emely Bonilla Referring PhysicianPalliative Medicine08/08/23Team MemberRelationshipSpecialty Start DateEnd Date Bee Vail MD [address] [facility] [place] [address] PCP - GeneralInternal Medicine06/26/22 Bee Vail MD [address] [facility] [place] [address] PCP - [employer]et[employer]10/19/21 Dr. Ledezma Referring PhysicianOncology08/08/23 Dr. Elliott Referring PhysicianCardiology08/08/23 Dr. Clemons Referring PhysicianRheumatology08/08/23 Dr. Becerril Referring PhysicianPulmonary Disease08/08/23 Dr. Franco Referring PhysicianOtolaryngology08/08/23 Emely Bonilla Referring PhysicianPalliative Medicine08/08/23Team MemberRelationshipSpecialty Start DateEnd Date Bee Vail MD PCP - GeneralInternal Medicine05/07/16 Irene Han, ACCOUNT SERVICES ASSOCIATE.TRAINING AND DEVELOPMENT DIRECTOR [address] [place] [address] Palliative Medicine ProviderHospice & Palliative Medicine06/28/21 Kylie Mosher, RN Specialty Care CoordinatorHospice & Palliative Medicine09/27/21 Ellyn Keller, ACCOUNT SERVICES ASSOCIATE.TRAINING AND DEVELOPMENT DIRECTOR [address] [place] [address] ReferringNurse Practitioner02/26/23 Ellyn Keller, ACCOUNT SERVICES ASSOCIATE.TRAINING AND DEVELOPMENT DIRECTOR [address] [place] [address] ReferringNurse Practitioner03/06/23 Fabiana Johnson MANAGER STRATE[employer]IC MARKETING Social Worker03/08/23 Sheila Lin, ACCOUNT SERVICES ASSOCIATE.TRAINING AND DEVELOPMENT DIRECTOR [address] [facility] [place] [address] ReferringInternal Vlzpwsbc36/15/24Team MemberRelationshipSpecialtyStart DateEnd Bee Vail MD PCP - GeneralInternal Medicine05/07/16 Irene Han, ACCOUNT SERVICES ASSOCIATE.TRAINING AND DEVELOPMENT DIRECTOR [address] [place] [address] Palliative Medicine ProviderHospice & Palliative Medicine06/28/21 Kylie Mosher, RN Specialty Care CoordinatorHospice & Palliative Medicine09/27/21 Ellyn Keller, ACCOUNT SERVICES ASSOCIATE.TRAINING AND DEVELOPMENT DIRECTOR [address] [place] [address] ReferringNurse Practitioner02/26/23 Ellyn Keller, ACCOUNT SERVICES ASSOCIATE.TRAINING AND DEVELOPMENT DIRECTOR [address] [place] [address] ReferringNurse Practitioner03/06/23 Fabiana Johnson, MANAGER STRATEGIC MARKETING Social Worker03/08/23 Sheila Lin, ACCOUNT SERVICES ASSOCIATE.TRAINING AND DEVELOPMENT DIRECTOR [address] [facility] [place] [address] ReferringInternal Hnhggqor90/15/24Team MemberRelationshipSpecialtyStart DateEnd Date Bee Vail MD PCP - GeneralInternal Medicine05/07/16 Irene Han, ACCOUNT SERVICES ASSOCIATE.TRAINING AND DEVELOPMENT DIRECTOR [address] [place] [id number] Palliative Medicine ProviderHospice & Palliative Medicine06/28/21 Kylie Mosher, RN Specialty Care CoordinatorHospice & Palliative Medicine09/27/21 Ellyn Keller, ACCOUNT SERVICES ASSOCIATE.TRAINING AND DEVELOPMENT DIRECTOR [address] [place] [address] ReferringNurse Practitioner02/26/23 Ellyn Keller, ACCOUNT SERVICES ASSOCIATE.TRAINING AND DEVELOPMENT DIRECTOR [address] [facility] [address] ReferringNurse Practitioner03/06/23 Fabiana Johnson, MANAGER STRATEGIC MARKETING Social Worker03/08/23 Sheila Lin, ACCOUNT SERVICES ASSOCIATE.TRAINING AND DEVELOPMENT DIRECTOR [address] [facility] [place] [address] ReferringInternal Pmkdskuj46/15/24Team MemberRelationshipSpecialtyStart DateEnd Date Bee Vail MD PCP - GeneralInternal Medicine05/07/16 Irene Han, ACCOUNT SERVICES ASSOCIATE.TRAINING AND DEVELOPMENT DIRECTOR [address] [place] [address] Palliative Medicine ProviderHospice & Palliative Medicine06/28/21 Kylie Mosher, RN Specialty Care CoordinatorHospice & Palliative Medicine09/27/21 Ellyn Keller, ACCOUNT SERVICES ASSOCIATE.TRAINING AND DEVELOPMENT DIRECTOR [address] [place] [address] ReferringNurse Practitioner02/26/23 Ellyn Keller, ACCOUNT SERVICES ASSOCIATE.TRAINING AND DEVELOPMENT DIRECTOR [address] [facility] [address] ReferringNurse Practitioner03/06/23 Fabiana Johnson, MANAGER STRATE[employer]IC MARKETING Social Worker03/08/23 Sheila Lin, ACCOUNT SERVICES ASSOCIATE.TRAINING AND DEVELOPMENT DIRECTOR [address] [facility] [place] [address] ReferringInternal Mqlcfksq67/15/24Team MemberRelationshipSpecialtyStart DateEnd Date Bee Vail MD PCP - GeneralInternal Medicine05/07/16 Irene Han, ACCOUNT SERVICES ASSOCIATE.TRAINING AND DEVELOPMENT DIRECTOR [address] [place] [address] Palliative Medicine ProviderHospice & Palliative Medicine06/28/21 Kylie Mosher, RN Specialty Care CoordinatorHospice & Palliative Medicine09/27/21 Ellyn Keller, ACCOUNT SERVICES ASSOCIATE.TRAINING AND DEVELOPMENT DIRECTOR [address] [place] [address] ReferringNurse Practitioner02/26/23 Ellyn Keller, ACCOUNT SERVICES ASSOCIATE.TRAINING AND DEVELOPMENT DIRECTOR [address] [place] [address] ReferringNurse Practitioner03/06/23 Fabiana Johnson, MANAGER STRATEGIC MARKETING Social Worker03/08/23 Sheila Lin, ACCOUNT SERVICES ASSOCIATE.TRAINING AND DEVELOPMENT DIRECTOR [address] [facility] [place] [address] ReferringInternal Nfezfhqr30/15/24Team MemberRelationshipSpecialtyStart DateEnd Date Bee Vail MD PCP - GeneralInternal Medicine05/07/16 Irene Han, ACCOUNT SERVICES ASSOCIATE.TRAINING AND DEVELOPMENT DIRECTOR [address] [place] [address] Palliative Medicine ProviderHospice & Palliative Medicine06/28/21 Kylie Mosher, RN Specialty Care CoordinatorHospice & Palliative Medicine09/27/21 Ellyn Keller, ACCOUNT SERVICES ASSOCIATE.TRAINING AND DEVELOPMENT DIRECTOR [address] [place] [address] ReferringNurse Practitioner02/26/23 Ellyn Keller, ACCOUNT SERVICES ASSOCIATE.TRAINING AND DEVELOPMENT DIRECTOR [address] [place] [address] ReferringNurse Practitioner03/06/23 Fabiana Johnson, TATO Social Worker03/08/23 Sheila Lin, ACCOUNT SERVICES ASSOCIATE.TRAINING AND DEVELOPMENT DIRECTOR [address] [facility] [place] [address] ReferringInternal Rgsqivkd71/15/24Team MemberRelationshipSpecialtyStart DateEnd Bee Vail MD [address] [facility] [place] [address] PCP - GeneralInternal Medicine06/26/22 Bee Vail MD [address] [facility] [place] [address] PCP - Aetna10/19/21 Dr. Ledezma Referring PhysicianOncology08/08/23 Dr. Elliott Referring PhysicianCardiology08/08/23 Dr. Clemons Referring PhysicianRheumatology08/08/23 Dr. Becerril Referring PhysicianPulmonary Disease08/08/23 Dr. Franco Referring PhysicianOtolaryngology08/08/23 Emely Bonilla Referring PhysicianPalliative Medicine08/08/23Team MemberRelationshipSpecialty Start DateEnd Date Bee Vail MD [address] [facility] [place] [address] PCP - GeneralInternal Medicine06/26/22 Bee Vail MD [address] [facility] [place] [address] PCP - Aetna10/19/21 Dr. Ledezma Referring PhysicianOncology08/08/23 Dr. Elliott Referring PhysicianCardiology08/08/23 Dr[address] Clemons Referring PhysicianRheumatology08/08/23 Dr. Becerril Referring PhysicianPulmonary Disease08/08/23 Dr. Franco Referring PhysicianOtolaryngology08/08/23 Emely Bnoilla Referring PhysicianPalliative Medicine08/08/23Team MemberRelationshipSpecialty Start DateEnd Date Bee Vail MD [address] [facility] [place] [address] PCP - GeneralInternal Medicine06/26/22 Bee Vail MD [address] [facility] [place] [address] PCP - Aetna10/19/21 Dr. Ledezma Referring PhysicianOncology08/08/23 Dr. Elliott Referring PhysicianCardiology08/08/23 Dr[address] Clemons Referring PhysicianRheumatology08/08/23 Dr. Becerril Referring PhysicianPulmonary Disease08/08/23 Dr. Franco Referring PhysicianOtolaryngology08/08/23 Emely Bonilla Referring PhysicianPalliative Medicine08/08/23Team MemberRelationshipSpecialty Start DateEnd Date Bee Vail MD [address] [facility] [place] [address] PCP - GeneralInternal Medicine06/26/22 Bee Vail MD [address] [facility] [place] [address] PCP - Aet[employer]10/19/21 Dr. Ledezma Referring PhysicianOncology08/08/23 Dr. Elliott Referring PhysicianCardiology08/08/23 Dr[address] Clemons Referring PhysicianRheumatology08/08/23 Dr. Becerril Referring PhysicianPulmonary Disease08/08/23 Dr. Franco Referring PhysicianOtolaryngology08/08/23 Emely Bonilla Referring PhysicianPalliative Medicine08/08/23Team MemberRelationshipSpecialty Start DateEnd Date Bee Vail MD [address] [facility] [place] [address] PCP - GeneralInternal Medicine06/26/22 Bee Vail MD [address] [facility] [place] [address] PCP - Aetna10/19/21 Dr. Ledezma Referring PhysicianOncology08/08/23 Dr. Elliott Referring PhysicianCardiology08/08/[address] Dr[address] Clemons Referring PhysicianRheumatology08/08/23 Dr. Becerril Referring PhysicianPulmonary Disease08/08/23 Dr. Franco Referring PhysicianOtolaryngology08/08/23 Emely Bonilla Referring PhysicianPalliative Medicine08/08/23 Goals (unrecognized section and content) Goals may be documented in a n alternate section Inactive Administered Medications - up to 3 most recent administrations Administered Medications (un recognized section and content) Medication OrderMAR ActionAction DateDoseRateSite ipratropium-albuterol 3 mL nebulizer solution (DUONEB) 3 mL, INHALATION, ONCE, 1 dose, On Sat05/31/23 at 1530, PROTECT FROM LIGHT. The unit-dose vial should remain stored in the protective foil pouch until time of use. Given05/31/2023 3:12 PM EDT3 mL FOR RECORDS PERTAINING TO PATIENTS WHO [...] BE BASED ON THE PRIMARY CLINICAL RECORDS. [employer] provides no warranty or guarantee of the accuracy or completeness of information in this document.
[2025-01-05 18:52] VITALS: O2SAT 90
--- NOTE | 2025-01-05 18:53 | ED.GENADUL1 ---
HPI HPI - General Adult General Chief complaint: Upper Respiratory Infection Stated complaint: HEADACHE, COUGH, SOB Time Seen by Provider: 01/05/25 18:28 Source: patient Mode of arrival: walk-in History of Present Illness HPI narrative: Patient is a 44-year-old female who presents with complaints of a headache that woke her up from sleep this morning. She states she has had something similar to this when she had a heart attack in June, but denies history of migraine. She notes that about 2 weeks ago she was having a cough, shortness of breath, sinus congestion, aphonia and saw her deputy sheriff k9 handler who had ordered an x-ray and placed her on an antibiotic. She finished the antibiotic and felt somewhat better but states that she still has a somewhat productive cough, shortness of breath, and headache. She denies chest pain, abdominal pain, vomiting, diarrhea, fever, night sweats, or chills. She does have a history of Hodgkin's lymphoma and went through radiation and chemotherapy and now has restrictive lung disease. She is also on Xarelto for history of PE and Plavix for her recent IA. She has been using sodium chloride nebulizer and a Acapella from her deputy sheriff k9 handler that has not helped with her lung symptoms. Related Data Home Medications ?Medication ?Instructions ?Recorded ?Confirmed cyclobenzaprine 10 mg tablet 10 mg PO BID PRN muscle spasm 04/02/23 01/05/25 gabapentin 300 mg capsule 600 mg PO BID 04/02/23 01/05/25 levothyroxine 75 mcg tablet 75 mcg PO .QD 04/02/23 01/05/25 lorazepam 0.5 mg tablet 0.5 mg PO QID PRN anxiety 04/02/23 01/05/25 oxycodone 10 mg tablet 10 mg PO Q8H PRN pain 04/02/23 01/05/25 rivaroxaban 10 mg tablet (Xarelto) 10 mg PO BEDTIME 04/02/23 01/05/25 dexlansoprazole 30 mg 30 mg PO DAILY 02/29/24 01/05/25 capsule,biphase delayed release trazodone 150 mg tablet 150 mg PO BEDTIME PRN insomnia 03/01/24 01/05/25 ipratropium bromide 42 mcg (0.06 2 spray intranasal DAILY 07/05/24 07/05/24 %) nasal spray perfluorohexyloctane (PF) 100 % 1 drp ophthalmic (eye) DAILY 07/05/24 01/05/25 eye drops (Miebo (PF)) sodium chloride 3 % for 4 ml inhalation BID PRN secretions 07/05/24 01/05/25 nebulization umeclidinium 62.5 mcg-vilanterol 1 inh inhalation Q24H 07/05/24 01/05/25 25 mcg/actuation powdr for inhalation (Anoro Ellipta) albuterol sulfate 90 mcg/actuation 2 puff inhalation Q4H PRN 01/05/25 01/05/25 aerosol inhaler shortness of breath or wheezing clopidogrel 75 mg tablet 75 mg PO DAILY 01/05/25 01/05/25 duloxetine 60 mg capsule,delayed 60 mg PO QPM 01/05/25 01/05/25 release ezetimibe 10 mg tablet 10 mg PO DAILY 01/05/25 01/05/25 furosemide 20 mg tablet 20 mg PO QAM 01/05/25 01/05/25 ivabradine 7.5 mg tablet 7.5 mg PO BID 01/05/25 01/05/25 lisinopril 5 mg tablet 5 mg PO QAM 01/05/25 01/05/25 metoprolol succinate 100 mg 100 mg PO DAILY 01/05/25 01/05/25 tablet,extended release 24 hr nitroglycerin 0.4 mg sublingual 0.4 mg sublingual Q5M PRN chest 01/05/25 01/05/25 tablet pain rosuvastatin 40 mg tablet 40 mg PO QPM 01/05/25 01/05/25 spironolactone 25 mg tablet 12.5 mg PO QAM 01/05/25 01/05/25 Allergies Allergy/AdvReac Type Severity Reaction Status Date / Time NSAIDS (Non-Steroidal AdvReac Mild Unknown Verified 10/29/23 11:05 Anti-Inflamma Sulfa (Sulfonamide AdvReac Mild Rash Verified 10/29/23 10:04 Antibiotics) Opioid HPI Opioid Management Most Recent Opioid Data: Last Pain Scale 4 01/05/25, 21:26 Last ED Pain Assessment 01/05/25, 21:26 Last MAR Pain Assessment 01/05/25, 20:25 Last ORT Total Score 2 02/29/24, 16:14 Last ORT Risk Category Low Risk 02/29/24, 16:14 Review of Systems ROS Status of ROS 10 or more systems reviewed and unremarkable except as noted in history and below [facility] Medical History (Updated 01/05/25 @ 21:18 by JAYLA Whyte) History of pulmonary embolism ?Z86.711 - Personal history of pulmonary embolism (ICD-10) Bronchiectasis with (acute) exacerbation ?J47.1 - Bronchiectasis with (acute) exacerbation (ICD-10) Asthma with COPD with exacerbation ?J44.1 - Chronic obstructive pulmonary disease with (acute) exacerbation (ICD-10) ?J45.901 - Unspecified asthma with (acute) exacerbation (ICD-10) Left lower lobe pneumonia ?J18.9 - Pneumonia, unspecified organism (ICD-10) Pneumonia ?J18.9 - Pneumonia, unspecified organism (ICD-10) Hypothyroid ?E03.9 - Hypothyroidism, unspecified (ICD-10) Restrictive lung disease ?J98.4 - Other disorders of lung (ICD-10) 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 - Drug-induced polyneuropathy (ICD-10) ?T45.1X5A - Adverse effect of antineoplastic and immunosuppressive drugs, initial encounter (ICD-10) Hodgkin lymphoma ?C81.90 - Hodgkin lymphoma, unspecified, unspecified site (ICD-10) Insomnia ?G47.00 - Insomnia, unspecified (ICD-10) Tachycardia ?R00.0 - Tachycardia, unspecified (ICD-10) Surgical History H/O stem cell transplant ?Z94.84 - Stem cells transplant status (ICD-10) Social History Within the past year, how often did you have a drink containing alcohol: monthly or less Within the past year, how many standard drinks containing alcohol did you have on a typical day: 1 or 2 Within the past year, how often did you have six or more drinks on one occasion: never Total score: 0 Score interpretation: A score less than 3 is consistent with normal alcohol consumption. Smoking status: Never smoker Non-prescribed substance use: denies use Previous occupational history: unemployed Highest level of school completed/degree received: Associate degree: occupational, technical, vocational program Are you now , , , , never or living with a partner: In a typical week, how many times do you talk on the telephone with family, friends, or neighbors: 3 or more times per week How often do you get together with friends or relatives: 3 or more times per week How often do you attend congregation or yazidism services: never Do you belong to any clubs or organizations such as congregation groups unions, fraternal or athletic groups, or school groups: no Total score: 2 Score interpretation: A score of greater than or equal to 2 indicates the lowest level of social isolation. Little interest or pleasure in doing things: not at all Feeling down, depressed, or hopeless: not at all Feel stressed/tense/nervous/anxious/difficulty sleeping: not at all Do you think of yourself as: straight/heterosexual Gender Identity: female Exam Narrative Exam Narrative: General: No distress, nontoxic-appearing, age-appropriate Skin: Warm, dry, no pallor. No rash. Head: Normocephalic, atraumatic. Neck: Supple, non-tender. Eye: Pupils are equal, round and EOMI. No scleral icterus. Ears, Nose, Mouth, and Throat: No nasal mucosal hypertrophy. Oral mucosa is moist, no posterior oropharynx erythema, uvula is mid-line Cardiovascular: Regular Rate and Rhythm without murmur, gallop or rub. Respiratory: No accessory muscle use or respiratory distress. Lungs are clear to auscultation, no wheezing, rales or rhonchi Chest Wall: no tenderness Back: No midline thoracic or lumbar vertebral tenderness. Musculoskeletal: Full ROM of all extremities, no calf or popliteal tenderness GI: Abdomen is soft, non-distended, non tender to palpation. No masses appreciated. No rebound, guarding, or rigidity noted. Neurological: A&O x4. No cranial nerve dysfunction observed. No truncal ataxia. Moves all extremities. Sensation intact. Psychiatric: Cooperative and interactive. Normal mood and affect. Constitutional Vital Signs, click to edit/add: Last Vital Signs Temp 98.4 F 01/05/25 18:16 Pulse 89 01/05/25 18:16 Resp 24 H 01/05/25 18:16 BP 108/71 01/05/25 18:16 Pulse Ox 90 L 01/05/25 18:52 O2 Del Method Room Air 01/05/25 18:52 Course Vital Signs Vital signs: Vital Signs Temperature 98.4 F 01/05/25 18:16 Pulse Rate 89 01/05/25 18:16 Respiratory Rate 24 H 01/05/25 18:16 Blood Pressure 108/71 01/05/25 18:16 Pulse Oximetry 93 L 01/05/25 18:16 Oxygen Delivery Method Room Air 01/05/25 18:16 Temperature 98.4 F 01/05/25 18:16 Pulse Rate 89 01/05/25 18:16 Respiratory Rate 24 H 01/05/25 18:16 Blood Pressure 108/71 01/05/25 18:16 Pulse Oximetry 90 L 01/05/25 18:52 Oxygen Delivery Method Room Air 01/05/25 18:52 Medical Decision Making MDM Narrative Medical decision making narrative: This is a 44-year-old female that presents to the ED with complaints of headache that woke her up from sleep this morning. She reports nausea, no vomiting or diarrhea, fever, night sweats, or chills. She has had cough and sinus congestion for about 2 weeks now. She did see her deputy sheriff k9 handler early December who placed her on an antibiotic that she has finished. Upon review of her medications it was cefpodoxime. Her cough somewhat improved but is still productive and she still reports shortness of breath. She does have restrictive lung disease after chemo and radiation from Hodgkin's lymphoma. She is on Xarelto for history of PE. She did have a heart attack in June for which she takes Plavix. On arrival patient is in no distress, O2 sat on room air is low between 93?90. Afebrile 98.4 ?F. Vitals are hemodynamically stable. IV placed. CT head and CTA chest ordered, patient can speak in full sentences. She states that her O2 saturations are normally in this range. CBC, CMP ordered. COVID?19, influenza A/B ordered. Neurologic exam was normal and CT head showed no acute intracranial process. CTA chest was negative for PE and demonstrated stable patchy ground-glass opacities and small pleural effusions likely related to resolving post-infectious or inflammatory changes. CBC showed no leukocytosis or left shift, and viral testing (COVID/flu) was negative. Headache significantly improved after treatment with Tylenol, Reglan, Benadryl, Solumedrol, and partial IV fluids, supporting a benign etiology such as post-infectious/inflammatory headache, sinus-related discomfort, or nonspecific migraine-type headache. No findings suggested SAH, meningitis, ICH, or other emergent neurologic pathology. Vitals remained stable throughout ED course. Results were reviewed with the patient, and shared decision-making was used to determine discharge. She has reliable follow-up with her PCP and deputy sheriff k9 handler and understands strict return precautions. Patient discharged in stable condition. Differential Diagnosis Differential Diagnosis: SAH, venous sinus thrombus, sinusitis, Lab Data Lab results reviewed: Yes I reviewed the patient's lab results Labs: Lab Results 01/05/25 01/05/25 Range/Units 18:40 18:45 WBC 7.2 (4.0-11.0) 10^3/uL RBC 4.09 L (4.20-5.40) 10^6/uL Hgb 12.8 (12.0-16.0) g/dL Hct 38.3 (36.0-48.0) % MCV 93.6 (81.0-99.0) fL MCH 31.3 (26.7-34.0) pg MCHC 33.4 (29.9-35.2) g/dL RDW 12.9 (11.0-15.0) % Plt Count 306 (150-450) 10^3/uL MPV 9.0 L (9.5-13.5) fL Neut % (Auto) 46.1 (43.0-75.0) % Lymph % (Auto) 38.9 (20.5-60.0) % [place] % (Auto) 11.1 (1.7-12.0) % Eos % (Auto) 3.2 (0.9-7.0) % Baso % (Auto) 0.4 (0.2-2.0) % Neut # (Auto) 3.3 (1.4-6.5) 10^3/uL Lymph # (Auto) 2.8 (1.2-3.8) 10^3/uL [place] # (Auto) 0.8 (0.3-0.8) 10^3/uL Eos # (Auto) 0.2 (0.0-0.7) 10^3/uL Baso # (Auto) 0.0 (0.0-0.1) 10^3/uL Abs Immat Gran (auto) 0.02 (0.00-0.03) 10^3/uL Imm/Tot Granulo (auto) 0.3 (0.0-0.5) % Sodium 142 (136-145) mmol/L Potassium 4.0 (3.5-5.1) mmol/L Chloride 106 (98-107) mmol/L Carbon Dioxide 31.7 (21.0-32.0) mmol/L Anion Gap 8.3 BUN 9.0 (7.0-18.0) mg/dL Creatinine 0.73 (0.55-1.02) mg/dL Est GFR ( Amer) >60 (>=60 mL/min/1.73m^2) Est GFR (Non-Af Amer) >60 (>=60 mL/min/1.73m^2) BUN/Creatinine Ratio 12.3 Glucose 87 (74-106) mg/dL Calcium 8.7 (8.5-10.1) mg/dL Total Bilirubin 0.4 (0.2-1.0) mg/dL AST 37 (15-37) U/L ALT 63 H (14-59) U/L Alkaline Phosphatase 59 (46-116) U/L Total Protein 6.4 (6.4-8.2) g/dL Albumin 3.5 (3.4-5.0) g/dL Globulin 2.9 g/dL Albumin/Globulin Ratio 1.2 Influenza Type A Ag Negative Influenza Type B Ag Negative SARS-CoV-2 Ag (CV2AG) Negative (NEGATIVE) Imaging Data CT scan - head: Attestation: I have reviewed the pertinent imaging results. Radiologist's impression: ITS Impressions Chest CTA 01/05/25 18:33 IMPRESSION: No acute pulmonary embolus. Similar patchy groundglass opacities. Edema versus pneumonitis/infection. Left perihilar scarring redemonstrated. Similar small pleural effusions. Impression dictated by: Carmine Pryor M.D. 01/05/2025 7:26 PM Dictation Location: [place] [address] Electronically authenticated by: [id number] Y Date: 01/05/2025 19:[address] 01/05/25 18:33 IMPRESSION: No acute findings. Impression dictated by: Carmine Pryor M.D. 01/05/2025 7:20 PM Dictation Location[facility] Electronically authenticated by: [id number] Y Date: 01/05/2025 19:20 Discharge Plan Discharge Chief Complaint: Upper Respiratory Infection Clinical Impression: Headache, Cough, Shortness of breath Patient Disposition: Home, Self-Care Time of Disposition Decision: 21:17 Condition: Good Mode of Transportation: Private Vehicle Prescriptions / Home Meds: No Action gabapentin 300 mg capsule 600 mg PO BID Patient Comments: PER PATIENT: NOT TAKING TID, ONLY TAKES BID lorazepam 0.5 mg tablet 0.5 mg PO QID PRN (Reason: anxiety) oxycodone 10 mg tablet 10 mg PO Q8H PRN (Reason: pain) Xarelto 10 mg tablet 10 mg PO BEDTIME cyclobenzaprine 10 mg tablet 10 mg PO BID PRN (Reason: muscle spasm) levothyroxine 75 mcg tablet 75 mcg PO .QD dexlansoprazole 30 mg capsule,biphase delayed releas 30 mg PO DAILY trazodone 150 mg tablet 150 mg PO BEDTIME PRN (Reason: insomnia) sodium chloride 3 % solution for nebulization 4 ml INHALATION BID PRN (Reason: secretions) ipratropium bromide 42 mcg (0.06 %) spray,non-aerosol 2 spray INTRANASAL DAILY umeclidinium-vilanterol [Anoro Ellipta] 62.5-25 mcg/actuation blister with device 1 inh INHALATION Q24H Miebo (PF) 100 % drops 1 drp OPHTHALMIC (EYE) DAILY albuterol sulfate 90 mcg/actuation HFA aerosol inhaler 2 puff INHALATION Q4H PRN (Reason: shortness of breath or wheezing) clopidogrel 75 mg tablet 75 mg PO DAILY duloxetine 60 mg capsule,delayed release(DR/EC) 60 mg PO QPM ezetimibe 10 mg tablet 10 mg PO DAILY furosemide 20 mg tablet 20 mg PO QAM ivabradine 7.5 mg tablet 7.5 mg PO BID lisinopril 5 mg tablet 5 mg PO QAM metoprolol succinate 100 mg tablet extended release 24 hr 100 mg PO DAILY nitroglycerin 0.4 mg tablet, sublingual 0.4 mg sublingual Q5M PRN (Reason: chest pain) rosuvastatin 40 mg tablet 40 mg PO QPM spironolactone 25 mg tablet 12.5 mg PO QAM Print Language: Mexican Instructions: Acute Headache (ED) Additional Instructions: Return to ED immediately if any of the following occur: Sudden/severe headache different from usual Nausea/vomiting with severe headache Weakness, numbness, difficulty speaking, vision changes Loss of consciousness or seizures Continue nebulizer therapy and airway clearance (Acapella) as prescribed by [employer] Monitor for worsening symptoms: Increased shortness of breath Fever, purulent sputum Chest pain Pulmonology follow-up recommended within 1?2 weeks Referrals: JOSE VAIL MD [Primary Care Provider] - 1 week Discharge Date/Time: 01/05/25 21:28
[2025-01-05 18:58] LABS: Hematocrit 38.3 % (36.0-48.0); Hemoglobin 12.8 g/dL (12.0-16.0); Immature Granulocytes Abs Auto 0.02 10^3/uL (0.00-0.03); Immature Granulocytes Pct Auto 0.3 % (0.0-0.5); Lymphocytes Absolute Auto 2.8 10^3/uL (1.2-3.8); Mean Corpuscular HGB Conc 33.4 g/dL (29.9-35.2); Mean Corpuscular Hemoglobin 31.3 pg (26.7-34.0); Mean Corpuscular Volume 93.6 fL (81.0-99.0); Platelet Count 306 10^3/uL (150-450); Red Blood Count 4.09 10^6/uL (4.20-5.40); White Blood Count 7.2 10^3/uL (4.0-11.0)
[2025-01-05 19:10] LABS: SARS-CoV-2 Ag NEGATIVE (NEGATIVE)
[2025-01-05 19:13] LABS: Alanine Aminotransferase 63 U/L (14-59); Albumin Globulin Ratio 1.2; Albumin Level 3.5 g/dL (3.4-5.0); Alkaline Phosphatase 59 U/L (46-116); Anion Gap 8.3; Aspartate Amino Transferase 37 U/L (15-37); Blood Urea Nitrogen 9.0 mg/dL (7.0-18.0); Calcium 8.7 mg/dL (8.5-10.1); Carbon Dioxide 31.7 mmol/L (21.0-32.0); Chloride 106 mmol/L (98-107); Estimated GFR (African America >60 (>=60 mL/min/1.73m^2); Estimated GFR (Non-African Ame >60 (>=60 mL/min/1.73m^2); Globulin 2.9 g/dL; Glucose 87 mg/dL (74-106); Potassium 4.0 mmol/L (3.5-5.1); Sodium 142 mmol/L (136-145); Total Protein 6.4 g/dL (6.4-8.2)
[2025-01-05] MEDS: DIPHENHYDRAMINE HCL 50 MG/ML VIAL 25 MG IVP (20:24)
[2025-01-05] MEDS: 0.9 % SODIUM CHLORIDE 1,000 ML 1000 ML IV (20:24)
[2025-01-05] MEDS: DEXAMETHASONE SOD PHOS (PF) 10 MG/ML VIAL IV (20:24)
[2025-01-05] MEDS: METOCLOPRAMIDE HCL 10 MG/2 ML VIAL IVP (20:24)
[2025-01-05] MEDS: ACETAMINOPHEN 1,000 MG/100 ML PREMIX 400 MG IV (20:25)
== END 2025-01-05 21:28 | disposition home or self-care (01) ==
PROVIDERS: Physician Assistant; Emergency Provider Emergency Medicine; PCP Internal Medicine
DX: R51.9 Headache, unspecified (principal); R05.9 Cough, unspecified; R06.02 Shortness of breath; I25.2 Old myocardial infarction; Z85.71 Personal history of Hodgkin lymphoma; Z92.21 Personal history of antineoplastic chemotherapy; J98.4 Other disorders of lung; Z79.01 Long term (current) use of anticoagulants; Z86.711 Personal history of pulmonary embolism
CPT/HCPCS: 36415; 70450; 71275; 80053; 85025; 87804; 87811; 96365; 96375; 99285; J0131; J1100; J1200; J2765; Q9967

== ENCOUNTER 2025-01-21 13:59 | Outpatient (OUT) | payer MEDICARE, MEDICAID, SELFPAY ==
--- NOTE | 2025-01-21 14:03 | CA_ITS ---
Patient Name: CELSO POTTS MR#: [id number] : 1980 Exam Date: 01/21/2025 Ordering Doctor: DR TEMO YU M.D. ECHOCARDIOGRAM REPORT PROCEDURE: CA ECHO DOPPLER COMPLETE INDICATIONS: Heart failure w/reduced EF, MR, Pulmonary HTN COMPARISON: None. DESCRIPTION: COMPLETE ECHOCARDIOGRAM Real-time transthoracic echocardiography with 2D, M-mode, spectral and color flow Doppler performed. QUALITY: Technical quality was good. LEFT VENTRICLE: Normal chamber size. Normal left ventricular wall thickness. Global left ventricular systolic function is normal. Visual estimation of left ventricular ejection fraction is 55-60%. LV EF: Normal left ventricular ejection fraction, (>55%). DIASTOLIC: Normal diastolic function. ATRIAL SEPTUM: LEFT ATRIUM: Normal chamber size. RIGHT ATRIUM: Normal chamber size. RIGHT VENTRICLE: Normal chamber size. Normal right ventricular systolic function. TRICUSPID VALVE: Normal mobility and thickness. No stenosis with trivial regurgitation. Mild pulmonary hypertension. The RVSP measures 35 mmHg. MITRAL VALVE: Normal mobility and thickness. No evidence of mitral valve stenosis. There is no mitral annular calcification. Mild to moderate mitral regurgitation. AORTIC VALVE: Normal trileaflet appearance. Mildly calcified aortic valve. Normal leaflet mobility. No evidence of aortic valve stenosis. Mild to moderate aortic regurgitation. AORTIC ROOT: Normal diameter and appearance. The aortic root measures 3.1 cm. The ascending aorta is normal in size measuring 2.8 cm. PULMONIC VALVE: Normal thickness and mobility. No stenosis. Mild regurgitation. PERICARDIUM: Trivial pericardial effusion. IVC: Collapses with inspiration. The IVC measures 1.7cm. PLEURA: CONCLUSION: 1. Normal left ventricular size and systolic function. Estimated LVEF is 55 to 60%. 2. Normal right ventricular size and systolic function. 3. Mild to moderate mitral and aortic regurgitation. 4. Mildly elevated right-sided pressures. Adult Echocardiography Procedure Report Left Ventricle LVEDD (3.7 - 5.6 cm): 4.77 cm LVESD (2.2 - 4.0 cm): 2.89 cm LVIVS thickness (0.6 - 1.2 cm): 0.88 cm LVPW thickness (0.5 - 1.0 cm): 0.92 cm e': 0.09 m/s E - e': 9.69 LVOT Max Gradient: 1.83 mm[Hg], 2.13 mm[Hg] LVOT Area (cm2): 0.70 m/s Peak Velocity (LVOT): 0.68 m/s, 0.73 m/s Mean Velocity (LVOT): 0.48 m/s LVOT Diameter 2.06 cm Left Ventricular Ejection Fraction: 55-60 % Left Atrium LA Volume Index (2D A2C): 25.26 ml/m2 Left Atrium Systolic Dimension: 4.55 cm Mitral Valve MV E to A Ratio: 1.50 Mitral Valve A-Wave Peak Velocity: 0.60 m/s Mitral Valve E-Wave Peak Velocity: 0.90 m/s Right Ventricle RV Internal Diastolic Dimension: 3.19 cm Aorta AO Root Diam: 3.13 cm Ascending Ao Diam: 2.81 cm Aortic Valve AoV Area (Peak Rodrigo): 1.82 cm2, 1.75 cm2 AoV Area (VTI): 1.73 cm2, 1.75 cm2 Deceleration [place]: 3.46 m/s2 Pressure Half-Time: 379.07 ms Peak Velocity(Antegrade Flow): 1.28 m/s Peak Gradient(Antegrade Flow): 6.58 mm[Hg] Mean Velocity(Antegrade Flow): 0.89 m/s Mean Gradient(Antegrade Flow): 3.63 mm[Hg] Velocity Time Integral: 26.79 cm Tricuspid Valve Peak Velocity (Regurgitant Flow): 2.41 m/s, 2.72 m/s, 2.81 m/s Pulmonic Valve Mean Gradient: 2.37 mm[Hg] Mean Velocity: 0.72 m/s Peak Velocity: 1.05 m/s, 0.95 m/s Peak Gradient: 3.62 mm[Hg], 4.40 mm[Hg] Right Atrium Right Atrium Systolic Pressure: 32.69 ml, 32.69 ml Dictated by: Temo Yu M.D. on 01/21/2025 at 21:23 Approved by: Temo Yu M.D. on 01/21/2025 at 21:27
[2025-01-21 14:59] LABS: Hematocrit 42.6 % (36.0-48.0); Hemoglobin 13.9 g/dL (12.0-16.0); Immature Granulocytes Abs Auto 0.01 10^3/uL (0.00-0.03); Immature Granulocytes Pct Auto 0.1 % (0.0-0.5); Lymphocytes Absolute Auto 1.9 10^3/uL (1.2-3.8); Mean Corpuscular HGB Conc 32.6 g/dL (29.9-35.2); Mean Corpuscular Hemoglobin 30.9 pg (26.7-34.0); Mean Corpuscular Volume 94.7 fL (81.0-99.0); Platelet Count 294 10^3/uL (150-450); Red Blood Count 4.50 10^6/uL (4.20-5.40); White Blood Count 7.5 10^3/uL (4.0-11.0)
[2025-01-21 15:10] LABS: Anion Gap 6.1; Blood Urea Nitrogen 7.0 mg/dL (7.0-18.0); Calcium 9.2 mg/dL (8.5-10.1); Carbon Dioxide 34.5 mmol/L (21.0-32.0); Chloride 107 mmol/L (98-107); Estimated GFR (African America >60 (>=60 mL/min/1.73m^2); Estimated GFR (Non-African Ame >60 (>=60 mL/min/1.73m^2); Glucose 98 mg/dL (74-106); Potassium 4.6 mmol/L (3.5-5.1); Sodium 143 mmol/L (136-145)
== END 2025-01-21 14:00 | disposition home or self-care (01) ==
LOC: CARD 14:01
PROVIDERS: PCP Internal Medicine; Visit Provider Internal Medicine Interventional Cardiology
DX: I50.22 Chronic systolic (congestive) heart failure (principal); I34.0 Nonrheumatic mitral (valve) insufficiency; I27.20 Pulmonary hypertension, unspecified
CPT/HCPCS: 36415; 80048; 85025; 93306; 93356